=== PATIENT | male | born 1955 | race African-American/Black ===

== ENCOUNTER 2018-02-17 10:19 | Inpatient (IN) | payer OTHER ==
--- OUTSIDE RECORDS SUMMARY | 2018-02-17 10:23 | XMS REPORT ---
:1955 Author Organization [facility] Address Unavailable , Allergies, Adverse Reactions, Alerts Allergy Name Reaction Description Start Date Severity Status Provider No Known Allergies Julieta Hamilton Conditions or Problems Problem Name Problem Onset Status Entry Provider Comment Standard Annotate Code Date Date Description Diabetes 250.00 Active [place] Diabetes mellitus mellitus, type 12/02 12/02 Benjamin PÉREZ without mention II of complication, type II or unspecified type, not stated as uncontrolled Encounter for Active [place] [place] screening for 12/02 12/02 Benjamin PÉREZ eye and ear disorders HIV infection 042 Active [place] Human 12/02 12/02 Benjamin PÉREZ immunodeficiency virus [HIV] disease Hyperopia - OU 367.0 Active Mo Hypermetropia 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 OD Hypertension 401.9 Active [place] Unspecified 12/02 12/02 Benjamin PÉREZ essential hypertension Hypertensive 362.11 Active [place] Hypertensive retinopathy, 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 Presbyopia - 367.4 Active Mo Presbyopia OU 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 OD 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, 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 OD astigmatism bilateral Medication List Medication Instructions Start Stop Generic NDC Status Provider Patient Date Date Name Instruction AMLODIPINE AMLODIPINE 64004668262 Active Mo Active BESYLATE 10 MG BESYLATE Dicks OD ORAL TABLET CALCIUM ACETATE CALCIUM ACETATE 95618955211 Active Mo Active (PHOS BINDER) (PHOS BINDER) Dicks OD 667 MG ORAL CAPSULE CRESTOR 5 MG ROSUVASTATIN 43400612202 Active Mo Active ORAL TABLET CALCIUM Dicks OD EPIVIR SOLUTION LAMIVUDINE SOLN 73769624588 Active Mo Active Dicks OD ISENTRESS RALTEGRAVIR 10409707918 Active Mo Active TABLET POTASSIUM TABS Dicks OD KALETRA TABLET LOPINAVIR-RITONAVI 24728738136 Active Mo Active R TABS Dicks OD LAMIVUDINE LAMIVUDINE TABS 99720992346 Active Mo Active TABLET Dicks OD PROAIR HFA ALBUTEROL SULFATE 84041270036 Active Mo Active AEROSOL AERS Dicks OD SOLUTION PEDRO-EAMON RX B-COMPLEX W/ C & 01177989091 Active Mo Active TABLET FOLIC ACID TABS Dicks OD VITAMIN D2 ERGOCALCIFEROL 79751592677 Active Mo Active TABLET TABS Dicks OD Diagnostic Results Date Name Value Unit Range Description Append: Eye Exam - Hematology T-helper cells (CD4) count 602 uL Append: Eye Exam - Serology HIV-1RNA, serum, by PCR, quantitative 20 {Copies}/mL Procedures Code Procedure Name Date Entry Date Standard Description [id number] Est Patient Comprehensive Opt - 66003 15:29:32 CDT CPT-35367 New Patient Intermediate Opt - 73455 14:28:41 CDT
--- OUTSIDE RECORDS SUMMARY | 2018-02-17 10:23 | XMS REPORT ---
:1955 [facility] Address [address] [place] [address] Care Team Providers Name Role Phone UNKNOWN, REFFERING Primary Care Provider Unavailable MAYLIN HOLLOWAY Unavailable Unavailable NEEL MONROY Unavailable Unavailable SHILA JAFFE MD, M.DDafne Unavailable Unavailable Problems This patient has no known problems. Allergies, Adverse Reactions, Alerts This patient has no known allergies or adverse reactions. Medications This patient has no known medications. Encounters Start End Encounter Admission Attending Care Care Encounter Date/Time Date/Time Type Type Clinicians Facility Department ID 2017-11-18 2017-11-20 Inpatient [facility] [id number] 13:43:00 13:54:00 MAYLIN 2017-11-07 2017-11-07 Emergency E [facility] [id number] 20:22:00 20:22:00 2017-10-06 2017-10-06 Emergency E [facility] [id number] 14:25:00 14:25:00 NEEL Results Test Description Test Time Test Comments Text Results Atomic Results Result Comments CD4/CD8 Ratio Profile 2017-11-27 08:04:00 Test Item Value Reference Range Comments Absolute CD 4 [place] (test cdvu=243728) 188 /uL 359-1519 % CD 4 Pos. Lymph. (test kwpi=894908) 37.6 % 30.8-58.5 Abs. CD 8 Suppressor (test sgrs=815509) 183 /uL 109-897 % CD 8 Pos. Lymph. (test vxqv=596102) 36.6 % 12.0-35.5 CD4/CD8 Ratio (test shrk=195751) 1.03 0.92-3.72 WBC (test kvux=614178) 5.0 x10E3/uL 3.4-10.8 RBC (test krfw=091192) 3.00 x10E6/uL 4.14-5.80 Hemoglobin (test aywm=615130) 9.6 g/dL 13.0-17.7 Hematocrit (test gkfp=164355) 27.6 % 37.5-51.0 MCV (test uqxq=461776) 92 fL 79-97 MCH (test bwpp=026548) 32.0 pg 26.6-33.0 MCHC (test uwal=397517) 34.8 g/dL 31.5-35.7 RDW (test bkhw=708582) 15.5 % 12.3-15.4 Platelets (test qcoo=285508) 113 x10E3/uL 150-379 Neutrophils (test grkq=632087) 84 % Not Estab. Lymphs (test zqep=005314) 9 % Not Estab. Monocytes (test gtcu=871920) 6 % Not Estab. Eos (test hxnh=105414) 1 % Not Estab. Basos (test evps=352171) 0 % Not Estab. Neutrophils (Absolute) (test viee=582747) 4.2 x10E3/uL 1.4-7.0 Lymphs (Absolute) (test ykiu=650347) 0.5 x10E3/uL 0.7-3.1 Monocytes(Absolute) (test auuk=267516) 0.3 x10E3/uL 0.1-0.9 Eos (Absolute) (test isac=791064) 0.0 x10E3/uL 0.0-0.4 Baso (Absolute) (test wcxi=589143) 0.0 x10E3/uL 0.0-0.2 Immature Granulocytes (test cjsv=597307) 0 % Not Estab. Immature Grans (Abs) (test dgxz=514482) 0.0 x10E3/uL 0.0-0.1 Culture, Blood [id number] 08:42:00Specimen: BloodCollected: 11/19/2017 00 :21 Status: Final Last Updated: 11/24/2017 08:42 Culture Result (Final) ( Final) No Growth After 5 DaysCulture, Blood [id number] 08:42: 00Specimen: BloodCollected: 11/18/2017 20:30 Status: Final Last Updated: 08:42 Culture Result (Final) (Final) No Growth After 5 DaysPOC Glucose, [id number] 11:51:00 Test Item Value Reference Range Comments POC Glucose (test 148 mg/dL 70-115 Notify RN or MDIf you consider code=POCGLUC) your patient critically ill, the Madeline Accu-Chek InformII metershould not be used for Glucose determinations.Draw a venous Glucose and send to the Main Lab for Analysis. CK [id number] 07:42:00 Test Item Value Reference Range Comments CK (test code=CK) na U/L 39-308 CKMB (test code=CKMB) 4.0 ng/mL 0.0-4.9 CKMB% (test code=CKMBP) 0.0 % 0.0-3.4 Mef-[id number] 07:39:00 Test Item Value Reference Range Comments NT ProBnp (test code=PBNP) >48845 pg/mL 0-124 Troponin [id number] 07:18:00 Test Item Value Reference Range Comments Troponin T (test code=MADHAV) 0.103 ng/mL 0.000-0.090 Lactate [id number] 07:18:00 Test Item Value Reference Range Comments LDH (test code=LDH) 271 U/L 135-225 POC Glucose, [id number] 06:50:00 Test Item Value Reference Range Comments POC Glucose (test 154 mg/dL 70-115 Notify RN or MDIf you consider code=POCGLUC) your patient critically ill, the Madeline Accu-Chek InformII metershould not be used for Glucose determinations.Draw a venous Glucose and send to the Main Lab for Analysis. CK [id number] 01:08:00 Test Item Value Reference Range Comments CK (test code=CK) na U/L 39-308 CKMB (test code=CKMB) 3.6 ng/mL 0.0-4.9 CKMB% (test code=CKMBP) 0.0 % 0.0-3.4 Troponin [id number] 01:08:00 Test Item Value Reference Range Comments Troponin T (test code=MADHAV) 0.106 ng/mL 0.000-0.090 XR CHEST 1 [id number] 21:02:01CLINICAL INFORMATION: Vascular congestion.Dictation Location: R 16Comparison: 11/18/2017 showed perihilar and lower lobe opacities. Technique: Portable AP 1951 hoursFINDINGS: Monitoring electrodes overlie the chest wall. Cardiomegaly withincreasing central vascular interstitial prominence with bibasilaropacities and effusions. No interval bone changes.IMPRESSION: Changes could indicate worsening cardiac decompensation orfluid overload.POC Glucose, [id number] 20:15:00 Test Item Value Reference Range Comments POC Glucose (test 139 mg/dL 70-115 If you consider your patient code=POCGLUC) critically ill, the Madeline Accu-Chek InformII metershould not be used for Glucose determinations.Draw a venous Glucose and send to the Main Lab for Analysis. POC Glucose, [id number] 16:52:00 Test Item Value Reference Range Comments POC Glucose (test 123 mg/dL 70-115 If you consider your patient code=POCGLUC) critically ill, the Madeline Accu-Chek InformII metershould not be used for Glucose determinations.Draw a venous Glucose and send to the Main Lab for Analysis. POC Glucose, [id number] 12:04:00 Test Item Value Reference Range Comments POC Glucose (test 140 mg/dL 70-115 If you consider your patient code=POCGLUC) critically ill, the Madeline Accu-Chek InformII metershould not be used for Glucose determinations.Draw a venous Glucose and send to the Main Lab for Analysis. POC Glucose, [id number] 08:01:00 Test Item Value Reference Range Comments POC Glucose (test 126 mg/dL 70-115 If you consider your patient code=POCGLUC) critically ill, the Madeline Accu-Chek InformII metershould not be used for Glucose determinations.Draw a venous Glucose and send to the Main Lab for Analysis. CK [id number] 06:03:00 Test Item Value Reference Range Comments CK (test code=CK) na U/L 39-308 CKMB (test code=CKMB) 2.8 ng/mL 0.0-4.9 CKMB% (test code=CKMBP) 0.0 % 0.0-3.4 Basic Metabolic [id number] 05:51:00 Test Item Value Reference Range Comments Sodium (test code=NA) 140 mmol/L 135-145 Potassium (test code=K) 4.0 mmol/L 3.5-5.1 Chloride (test code=CL) 97 mmol/L 98-105 Carbon Dioxide (test 32 mmol/L 22-29 code=CO2) Glucose (test code=GLU) 115 mg/dL 70-115 Blood Urea Nitrogen (test 29 mg/dL 6-20 code=BUN) Creatinine (test 5.5 mg/dL 0.7-1.2 code=CREAT) Calcium (test code=CA) 9.1 mg/dL 8.3-10.5 BUN/Creatinine Ratio 5.3 (test code=BCRATIO) Anion Gap (test 11 mmol/L 7-16 code=AGAP) Estimated GFR (test 14 mL/min/1.73m2 eGFR (estimated Glomerular code=GFR) Filtration Rate) is an estimated value,calculated from the patient's serum creatinine using the MDRD equation.It is NOT the patient's actual GFR. The eGFR provides a more clinicallyuseful measure of kidney disease than serum creatinine alone.This calculation takes sex and race into account, if the informationis provided. If the race is not provided, and the patient isAfrican-Ethiopian, multiply by 1.212. If sex is not provided, and thepatient is female, multiply by 0.742. Results for patients <18 years ofage have not been validated by the MDRD study and should be interpretedwith caution.eGFR Result Interpretation:eGFR > or=60 is in the Normal RangeeGFR < 60 may mean kidney diseaseeGFR < 15 may mean kidney failureRanges recommended by the National Kidney Foundation,http://nkdep.nih .gov Magnesium, [id number] 05:51:00 Test Item Value Reference Range Comments Magnesium (test code=MG) 1.9 mg/dL 1.7-2.5 [id number] 05:51:00 Test Item Value Reference Range Comments Phosphorus (test code=PO4) 3.8 mg/dL 2.70-4.50 Oad-[id number] 05:51:00 Test Item Value Reference Range Comments NT ProBnp (test code=PBNP) >41135 pg/mL 0-124 Troponin [id number] 05:51:00 Test Item Value Reference Range Comments Troponin T (test code=MADHAV) 0.126 ng/mL 0.000-0.090 CBC with [id number] 05:34:00 Test Item Value Reference Range Comments WBC (test code=WBC) 5.9 K/cumm 4.4-10.5 RBC (test code=RBC) 3.01 M/cumm 4.10-5.70 Hemoglobin (test code=HGB) 9.4 gm/dL 13.4-17.4 Hematocrit (test code=HCT) 28.8 % 38.7-52.0 MCV (test code=MCV) 95.7 fL 80-100 MCH (test code=MCH) 31.3 pg 27.0-32.5 MCHC (test code=MCHC) 32.7 g/dL 32.0-37.5 RDW (test code=RDW) 15.6 % 11.5-14.5 Platelet Count (test code=PLTCT) 111 K/cumm 140-440 MPV (test code=MPV) 7.1 fL Diff Method (test code=DIFFM) Auto Neutrophil (test code=NEUT) 82.1 % 36-70 Lymphocyte (test code=LYMPH) 6.2 % 12-44 Monocyte (test code=MONO) 9.3 % 0-11 Eosinophil (test code=EOS) 2.1 % 0-7 Basophil (test code=BASO) 0.3 % 0-2 Neutro Abs (test code=ANEUT) 4.8 K/cumm 1.6-7.4 Lymph Abs (test code=ALYMPH) 0.4 K/cumm 0.5-4.6 [place] Abs (test code=AMONO) 0.6 K/cumm 0.0-1.2 Eos Abs (test code=AEOS) 0.13 K/cumm 0.00-0.74 Baso Abs (test code=ABASO) 0.0 K/cumm 0.00-0.21 CK [id number] 18:39:00 Test Item Value Reference Range Comments CK (test code=CK) HIDE U/L 39-308 CKMB (test code=CKMB) 3.2 ng/mL 0.0-4.9 CKMB% (test code=CKMBP) HIDE % 0.0-3.4 Troponin [id number] 18:39:00 Test Item Value Reference Range Comments Troponin T (test code=MADHAV) 0.126 ng/mL 0.000-0.090 Hep B Surface [id number] 18:39:00 Test Item Value Reference Range Comments Hep Bs Ag (test code=HBSAG) Nonreactive Non-Reactive POC Glucose, [id number] 16:47:00 Test Item Value Reference Range Comments POC Glucose (test 143 mg/dL 70-115 If you consider your patient code=POCGLUC) critically ill, the [facility] Accu-Chek InformII metershould not be used for Glucose determinations.Draw a venous Glucose and send to the Main Lab for Analysis. XR CHEST 1 [id number] 08:18:18EXAM: Portable AP chest x-rayLOCATION: R16 INDICATION: CoughCOMPARISON: 11/07/2017FINDINGS:The cardiacsilhouette is stable enlargement. There are increasinginterstitial opacities, most evident in the perihilar regions and lowerlobes. There is blunting of the costophrenic angles bilaterally. Thereis no discernible pneumothorax.IMPRESSION:Increasing perihilar and bilateral lower lobe opacities compared to theprior exam dated 11/07. Findings may represent pulmonary edema orpneumonia in the appropriate clinical setting.Comprehensive Metabolic [id number] 08:05:00 Test Item Value Reference Range Comments Sodium (test code=NA) 141 mmol/L 135-145 Potassium (test code=K) 3.9 mmol/L 3.5-5.1 Chloride (test code=CL) 94 mmol/L 98-105 Carbon Dioxide (test 28 mmol/L 22-29 code=CO2) Glucose (test code=GLU) 123 mg/dL 70-115 Blood Urea Nitrogen (test 50 mg/dL 6-20 code=BUN) Creatinine (test 7.4 mg/dL 0.7-1.2 code=CREAT) Calcium (test code=CA) 9.3 mg/dL 8.3-10.5 Prot Total (test code=TP) 7.9 g/dL 6.4-8.3 Albumin (test code=ALB) 4.3 g/dL 3.5-5.2 A/G Ratio (test 1.2 Ratio code=AGRATIO) Globulin (test code=GLOB) 3.6 2.9-3.1 Bili Total (test 0.7 mg/dL 0.1-0.9 code=TBIL) Alk Phos (test 93 U/L 40-129 code=APHOS) AST (test code=AST) 55 U/L 1-40 ALT (test code=ALT) 38 U/L 1-41 BUN/Creatinine Ratio 6.8 (test code=BCRATIO) Anion Gap (test 19 mmol/L 7-16 code=AGAP) Estimated GFR (test 10 mL/min/1.73m2 eGFR (estimated Glomerular code=GFR) Filtration Rate) is an estimated value,calculated from the patient's serum creatinine using the MDRD equation.It is NOT the patient's actual GFR. The eGFR provides a more clinicallyuseful measure of kidney disease than serum creatinine alone.This calculation takes sex and race into account, if the informationis provided. If the race is not provided, and the patient isAfrican-Ethiopian, multiply by 1.212. If sex is not provided, and thepatient is female, multiply by 0.742. Results for patients <18 years ofage have not been validated by the MDRD study and should be interpretedwith caution.eGFR Result Interpretation:eGFR > or=60 is in the Normal RangeeGFR < 60 may mean kidney diseaseeGFR < 15 may mean kidney failureRanges recommended by the National Kidney Foundation,http://nkdep.nih .gov CK [id number] 08:05:00 Test Item Value Reference Range Comments CK (test code=CK) 149 U/L 39-308 Troponin [id number] 08:02:00 Test Item Value Reference Range Comments Troponin T (test code=MADHAV) 0.114 ng/mL 0.000-0.090 [id number] 08:02:00 Test Item Value Reference Range Comments NT ProBnp (test code=PBNP) >43055 pg/mL 0-124 CBC with [id number] 07:53:00 Test Item Value Reference Range Comments WBC (test code=WBC) 5.1 K/cumm 4.4-10.5 RBC (test code=RBC) 3.22 M/cumm 4.10-5.70 Hemoglobin (test code=HGB) 10.0 gm/dL 13.4-17.4 Hematocrit (test code=HCT) 30.4 % 38.7-52.0 MCV (test code=MCV) 94.4 fL 80-100 MCH (test code=MCH) 30.9 pg 27.0-32.5 MCHC (test code=MCHC) 32.8 g/dL 32.0-37.5 RDW (test code=RDW) 16.1 % 11.5-14.5 Platelet Count (test code=PLTCT) 118 K/cumm 140-440 MPV (test code=MPV) 9.6 fL Diff Method (test code=DIFFM) Auto Neutrophil (test code=NEUT) 73.2 % 36-70 Lymphocyte (test code=LYMPH) 16.7 % 12-44 Monocyte (test code=MONO) 7.2 % 0-11 Eosinophil (test code=EOS) 2.2 % 0-7 Basophil (test code=BASO) 0.6 % 0-2 Neutro Abs (test code=ANEUT) 3.7 K/cumm 1.6-7.4 Lymph Abs (test code=ALYMPH) 0.9 K/cumm 0.5-4.6 [place] Abs (test code=AMONO) 0.4 K/cumm 0.0-1.2 Eos Abs (test code=AEOS) 0.11 K/cumm 0.00-0.74 Baso Abs (test code=ABASO) 0.0 K/cumm 0.00-0.21 XR CHEST 1 [id number] 21:38:09EXAM: CHEST ONE VIEWINDICATION: CoughCOMPARISON: October 06, 2017TECHNIQUE: AP view of the chest.FINDINGS: The cardiomediastinal silhouette is unchanged. Mild congestive changesbilaterally. No pneumothorax or pleural effusion is identified. Theosseous structures are unremarkable.IMPRESSION: Diffuse congestive changes bilaterally.LOCATION: R16US DUPLX EXT VEINS COMPRXavier, [id number] 20:09:34AFTER HOURS SERVICE ON: 10/06/2017 8: 09 PMRIGHT Lower Extremity Venous Duplex Doppler ExaminationLocation Code [id number]: SwellingTechnique: Real-time castillo scale, Doppler spectral analysis and Dopplercolor flow evaluation was performed using a dedicated transducer. Gradedcompression with augmentation were performed. Findings: Lower extremity veins were sampled including the common femoral,femoral, proximal deep femoral, greater saphenous and popliteal veins. No echogenic filling defects are seen to suggest deep venous thrombosis.There is normal response to compression and augmentation. There arenormal venous waveforms. IMPRESSION:No sonographic evidence of DVT in the imaged vessels.AFTER HOURS SERVICE ON: 10/06/2017 8:09 [facility]rem[facility] Venous Duplex Doppler ExaminationLocation Code [id number] : SwellingTechnique: Real-time castillo scale, Doppler spectral analysis and Dopplercolor flow evaluation was performed using a dedicated transducer. Gradedcompression with augmentation were performed. Findings: Lower extremity veins were sampled including the common femoral,femoral, proximal deep femoral, greater saphenous and popliteal veins. No echogenic filling defects are seen to suggest deep venous thrombosis.There is normal response to compression and augmentation. There arenormal venous waveforms. IMPRESSION:No sonographic evidence of DVT in the imaged vessels.Comprehensive Metabolic [id number] 17 :40:00 Test Item Value Reference Range Comments Sodium (test code=NA) 137 mmol/L 135-145 Potassium (test code=K) 3.7 mmol/L 3.5-5.1 Chloride (test code=CL) 92 mmol/L 98-105 Carbon Dioxide (test 33 mmol/L 22-29 code=CO2) Glucose (test code=GLU) 98 mg/dL 70-115 Blood Urea Nitrogen (test 34 mg/dL 6-20 code=BUN) Creatinine (test 6.3 mg/dL 0.7-1.2 code=CREAT) Calcium (test code=CA) 9.6 mg/dL 8.3-10.5 Prot Total (test code=TP) 7.0 g/dL 6.4-8.3 Albumin (test code=ALB) 4.1 g/dL 3.5-5.2 A/G Ratio (test 1.4 Ratio code=AGRATIO) Globulin (test code=GLOB) 2.9 2.9-3.1 Bili Total (test 0.6 mg/dL 0.1-0.9 code=TBIL) Alk Phos (test 77 U/L 40-129 code=APHOS) AST (test code=AST) 47 U/L 1-40 HEMOLYZED ALT (test code=ALT) 35 U/L 1-41 BUN/Creatinine Ratio 5.4 (test code=BCRATIO) Anion Gap (test 12 mmol/L 7-16 code=AGAP) Estimated GFR (test 12 mL/min/1.73m2 eGFR (estimated Glomerular code=GFR) Filtration Rate) is an estimated value,calculated from the patient's serum creatinine using the MDRD equation.It is NOT the patient's actual GFR. The eGFR provides a more clinicallyuseful measure of kidney disease than serum creatinine alone.This calculation takes sex and race into account, if the informationis provided. If the race is not provided, and the patient isAfrican-Ethiopian, multiply by 1.212. If sex is not provided, and thepatient is female, multiply by 0.742. Results for patients <18 years ofage have not been validated by the MDRD study and should be interpretedwith caution.eGFR Result Interpretation:eGFR > or=60 is in the Normal RangeeGFR < 60 may mean kidney diseaseeGFR < 15 may mean kidney failureRanges recommended by the National Kidney Foundation,http://nkdep.nih .gov CBC with [id number] 17:15:00 Test Item Value Reference Range Comments WBC (test code=WBC) 5.8 K/cumm 4.4-10.5 RBC (test code=RBC) 2.93 M/cumm 4.10-5.70 Hemoglobin (test code=HGB) 9.7 gm/dL 13.4-17.4 Hematocrit (test code=HCT) 28.1 % 38.7-52.0 MCV (test code=MCV) 95.8 fL 80-100 MCH (test code=MCH) 32.9 pg 27.0-32.5 MCHC (test code=MCHC) 34.4 g/dL 32.0-37.5 RDW (test code=RDW) 15.1 % 11.5-14.5 Platelet Count (test code=PLTCT) 136 K/cumm 140-440 MPV (test code=MPV) 6.8 fL Diff Method (test code=DIFFM) Auto Neutrophil (test code=NEUT) 65.8 % 36-70 Lymphocyte (test code=LYMPH) 22.0 % 12-44 Monocyte (test code=MONO) 9.6 % 0-11 Eosinophil (test code=EOS) 2.0 % 0-7 Basophil (test code=BASO) 0.5 % 0-2 Neutro Abs (test code=ANEUT) 3.8 K/cumm 1.6-7.4 Lymph Abs (test code=ALYMPH) 1.3 K/cumm 0.5-4.6 Trego Abs (test code=AMONO) 0.6 K/cumm 0.0-1.2 Eos Abs (test code=AEOS) 0.12 K/cumm 0.00-0.74 Baso Abs (test code=ABASO) 0.0 K/cumm 0.00-0.21 XR CHEST 1 [id number] 16:56:42CHEST 1 VIEW: [id number]: coughCOMPARISON: Sep 24, 2017FINDINGS:The heart is enlarged. There is engorgement of the central pulmonaryvasculature. There are patchy bibasilar areas of infiltrate oratelectasis with bilateral effusions. No pneumothorax is present. IMPRESSION: 1. Patchy areas of atelectasis or infiltrate in the lung bases withsmall bilateral effusions and vascular congestion most likely secondaryto CHF.Culture, Blood [id number] 14:58:00Specimen: BloodCollected: 2017 13:05 Status: Final Last Updated: 09/29/2017 14:58 (1) ER Bed 1 Culture Result (Final) (Final) No Growth After 5 DaysCulture, Blood [id number] 14:58:00Specimen: BloodCollected: 09/24/2017 12:50 Status: Final Last Updated: 09/29/2017 14:58 (1) ER Bed 1 Culture Result (Final) (Final) No Growth After 5 DaysPOC Glucose, [id number] 10:54:00 Test Item Value Reference Range Comments POC Glucose (test 168 mg/dL 70-115 If you consider your patient code=POCGLUC) critically ill, the [facility]eline Accu-Chek InformII metershould not be used for Glucose determinations.Draw a venous Glucose and send to the Main Lab for Analysis. POC Glucose, [id number] 07:16:00 Test Item Value Reference Range Comments POC Glucose (test 143 mg/dL 70-115 If you consider your patient code=POCGLUC) critically ill, the Madeline Accu-Chek InformII metershould not be used for Glucose determinations.Draw a venous Glucose and send to the Main Lab for Analysis. CBC with [id number] 07:15:00 Test Item Value Reference Range Comments WBC (test code=WBC) 7.5 K/cumm 4.4-10.5 RBC (test code=RBC) 2.77 M/cumm 4.10-5.70 Hemoglobin (test code=HGB) 8.7 gm/dL 13.4-17.4 Hematocrit (test code=HCT) 24.7 % 38.7-52.0 MCV (test code=MCV) 88.9 fL 80-100 MCH (test code=MCH) 31.3 pg 27.0-32.5 MCHC (test code=MCHC) 35.2 g/dL 32.0-37.5 RDW (test code=RDW) 15.9 % 11.5-14.5 Platelet Count (test code=PLTCT) 157 K/cumm 140-440 MPV (test code=MPV) 9.0 fL Diff Method (test code=DIFFM) Auto Neutrophil (test code=NEUT) 72.8 % 36-70 Lymphocyte (test code=LYMPH) 17.3 % 12-44 Monocyte (test code=MONO) 8.7 % 0-11 Eosinophil (test code=EOS) 0.9 % 0-7 Basophil (test code=BASO) 0.4 % 0-2 Neutro Abs (test code=ANEUT) 5.5 K/cumm 1.6-7.4 Lymph Abs (test code=ALYMPH) 1.3 K/cumm 0.5-4.6 Trego Abs (test code=AMONO) 0.7 K/cumm 0.0-1.2 Eos Abs (test code=AEOS) 0.07 K/cumm 0.00-0.74 Baso Abs (test code=ABASO) 0.0 K/cumm 0.00-0.21 Magnesium, [id number] 07:03:00 Test Item Value Reference Range Comments Magnesium (test code=MG) 2.0 mg/dL 1.7-2.5 Basic Metabolic [id number] 07:03:00 Test Item Value Reference Range Comments Sodium (test code=NA) 137 mmol/L 135-145 Potassium (test code=K) 3.7 mmol/L 3.5-5.1 Chloride (test code=CL) 95 mmol/L 98-105 Carbon Dioxide (test 30 mmol/L 22-29 code=CO2) Glucose (test code=GLU) 155 mg/dL 70-115 Blood Urea Nitrogen (test 20 mg/dL 6-20 code=BUN) Creatinine (test 5.7 mg/dL 0.7-1.2 code=CREAT) Calcium (test code=CA) 9.0 mg/dL 8.3-10.5 BUN/Creatinine Ratio 3.5 (test code=BCRATIO) Anion Gap (test 12 mmol/L 7-16 code=AGAP) Estimated GFR (test 13 mL/min/1.73m2 eGFR (estimated Glomerular code=GFR) Filtration Rate) is an estimated value,calculated from the patient's serum creatinine using the MDRD equation.It is NOT the patient's actual GFR. The eGFR provides a more clinicallyuseful measure of kidney disease than serum creatinine alone.This calculation takes sex and race into account, if the informationis provided. If the race is not provided, and the patient isAfrican-Ethiopian, multiply by 1.212. If sex is not provided, and thepatient is female, multiply by 0.742. Results for patients <18 years ofage have not been validated by the MDRD study and should be interpretedwith caution.eGFR Result Interpretation:eGFR > or=60 is in the Normal RangeeGFR < 60 may mean kidney diseaseeGFR < 15 may mean kidney failureRanges recommended by the National Kidney Foundation,http://nkdep.nih .gov POC Glucose, [id number] 21:40:00 Test Item Value Reference Range Comments POC Glucose (test 129 mg/dL 70-115 If you consider your patient code=POCGLUC) critically ill, the [facility] Accu-Chek InformII metershould not be used for Glucose determinations.Draw a venous Glucose and send to the Main Lab for Analysis. Hep B Surface [id number] 18:36:00 Test Item Value Reference Range Comments Hep Bs Ag (test code=HBSAG) Nonreactive Non-Reactive POC Glucose, [id number] 10:51:00 Test Item Value Reference Range Comments POC Glucose (test 216 mg/dL 70-115 If you consider your patient code=POCGLUC) critically ill, the Madeline Accu-Chek InformII metershould not be used for Glucose determinations.Draw a venous Glucose and send to the Main Lab for Analysis. POC Glucose, [id number] 07:57:00 Test Item Value Reference Range Comments POC Glucose (test 164 mg/dL 70-115 If you consider your patient code=POCGLUC) critically ill, the Madeline Accu-Chek InformII metershould not be used for Glucose determinations.Draw a venous Glucose and send to the Main Lab for Analysis. POC Glucose, [id number] 19:47:00 Test Item Value Reference Range Comments POC Glucose (test 140 mg/dL 70-115 Notify RN or MDIf you consider code=POCGLUC) your patient critically ill, the Madeline Accu-Chek InformII metershould not be used for Glucose determinations.Draw a venous Glucose and send to the Main Lab for Analysis. Troponin [id number] 19:36:00 Test Item Value Reference Range Comments Troponin T (test code=MADHAV) 0.121 ng/mL 0.000-0.090 CK [id number] 19:25:00 Test Item Value Reference Range Comments CK (test code=CK) 160 U/L 39-308 The value HIDE originally released by [employer] on 09/25/2017 19:12 waschanged to 160 by [employer] on 09/25/2017 19:24 CKMB (test code=CKMB) 3.0 ng/mL 0.0-4.9 CKMB% (test code=CKMBP) 1.9 % 0.0-3.4 The value HIDE originally released by [employer] on 09/25/2017 19:12 waschanged to 1.9 by [facility] on 09/25/2017 19:24 POC Glucose, [id number] 16:42:00 Test Item Value Reference Range Comments POC Glucose (test 123 mg/dL 70-115 If you consider your patient code=POCGLUC) critically ill, the [facility] Accu-Chek InformII metershould not be used for Glucose determinations.Draw a venous Glucose and send to the Main Lab for Analysis. POC Glucose, [id number] 12:09:00 Test Item Value Reference Range Comments POC Glucose (test 141 mg/dL 70-115 If you consider your patient code=POCGLUC) critically ill, the [facility] Accu-Chek InformII metershould not be used for Glucose determinations.Draw a venous Glucose and send to the Main Lab for Analysis. Hep B Surface [id number] 07:59:00 Test Item Value Reference Range Comments Hep Bs Ag (test code=HBSAG) Nonreactive Non-Reactive CK [id number] 07:43:00 Test Item Value Reference Range Comments CK (test code=CK) n/a U/L 39-308 CKMB (test code=CKMB) 2.4 ng/mL 0.0-4.9 CKMB% (test code=CKMBP) 0.0 % 0.0-3.4 Troponin [id number] 07:38:00 Test Item Value Reference Range Comments Troponin T (test code=MADHAV) 0.134 ng/mL 0.000-0.090 Thyroid Stimulating Hormone (TSH)2017-09-25 07:38:00 Test Item Value Reference Range Comments TSH (test code=TSH) 1.10 mIU/mL 0.270-4.200 [id number] 07:38:00 Test Item Value Reference Range Comments Phosphorus (test code=PO4) 3.4 mg/dL 2.70-4.50 Comprehensive Metabolic [id number] 07:38:00 Test Item Value Reference Range Comments Sodium (test code=NA) 136 mmol/L 135-145 Potassium (test code=K) 3.2 mmol/L 3.5-5.1 Chloride (test code=CL) 91 mmol/L 98-105 Carbon Dioxide (test 32 mmol/L 22-29 code=CO2) Glucose (test code=GLU) 103 mg/dL 70-115 Blood Urea Nitrogen (test 20 mg/dL 6-20 code=BUN) Creatinine (test 6.3 mg/dL 0.7-1.2 code=CREAT) Calcium (test code=CA) 8.9 mg/dL 8.3-10.5 Prot Total (test code=TP) 6.8 g/dL 6.4-8.3 Albumin (test code=ALB) 3.9 g/dL 3.5-5.2 A/G Ratio (test 1.3 Ratio code=AGRATIO) Globulin (test code=GLOB) 2.9 2.9-3.1 Bili Total (test 0.9 mg/dL 0.1-0.9 code=TBIL) Alk Phos (test 59 U/L 40-129 code=APHOS) AST (test code=AST) 48 U/L 1-40 ALT (test code=ALT) 41 U/L 1-41 BUN/Creatinine Ratio 3.2 (test code=BCRATIO) Anion Gap (test 13 mmol/L 7-16 code=AGAP) Estimated GFR (test 12 mL/min/1.73m2 eGFR (estimated Glomerular code=GFR) Filtration Rate) is an estimated value,calculated from the patient's serum creatinine using the MDRD equation.It is NOT the patient's actual GFR. The eGFR provides a more clinicallyuseful measure of kidney disease than serum creatinine alone.This calculation takes sex and race into account, if the informationis provided. If the race is not provided, and the patient isAfrican-Ethiopian, multiply by 1.212. If sex is not provided, and thepatient is female, multiply by 0.742. Results for patients <18 years ofage have not been validated by the MDRD study and should be interpretedwith caution.eGFR Result Interpretation:eGFR > or=60 is in the Normal RangeeGFR < 60 may mean kidney diseaseeGFR < 15 may mean kidney failureRanges recommended by the National Kidney Foundation,http://nkdep.nih .gov Magnesium, [id number] 07:38:00 Test Item Value Reference Range Comments Magnesium (test code=MG) 2.0 mg/dL 1.7-2.5 CK [id number] 07:31:00 Test Item Value Reference Range Comments CK (test code=CK) 159 U/L 39-308 Lipid [id number] 07:31:00 Test Item Value Reference Range Comments Cholesterol (test 118 mg/dL 0-200 code=CHOL) Triglycerides (test 170 mg/dL 9-200 code=TRIG) HDL (test code=HDL) 49 mg/dL 40-60 Chol/HDL (test 2.4 Ratio 0.0-5.0 code=CHOLPHDL) LDL, Calculated (test 35 0-130 (NOTE)RISK OF HEART code=LDLC) DISEASEPublished by Ethiopian Heart AssociationAnalyte Optimal Boderline Increased RiskCHOL <200 200-239 >240TRIG <150 150-199 >200HDL Male: >60 <40HDL Female: >60 <50LDL <100 130-159 >160LDL NEAR OPTIMAL IS 100-129 VLDL (test code=VLDL) 34 mg/dL 5-40 LDL/HDL (test code=LDLPHDL) 1 Glycosylated [id number] 07:24:00 Test Item Value Reference Range Comments HBA1c (test code=HBA1C) 5.0 % 4.8-5.9 CBC with [id number] 07:20:00 Test Item Value Reference Range Comments WBC (test code=WBC) 6.5 K/cumm 4.4-10.5 RBC (test code=RBC) 2.80 M/cumm 4.10-5.70 Hemoglobin (test code=HGB) 8.8 gm/dL 13.4-17.4 Hematocrit (test code=HCT) 24.2 % 38.7-52.0 MCV (test code=MCV) 86.5 fL 80-100 MCH (test code=MCH) 31.5 pg 27.0-32.5 MCHC (test code=MCHC) 36.4 g/dL 32.0-37.5 RDW (test code=RDW) 15.6 % 11.5-14.5 Platelet Count (test code=PLTCT) 145 K/cumm 140-440 MPV (test code=MPV) 8.7 fL Diff Method (test code=DIFFM) Auto Neutrophil (test code=NEUT) 78.8 % 36-70 Lymphocyte (test code=LYMPH) 11.6 % 12-44 Monocyte (test code=MONO) 7.6 % 0-11 Eosinophil (test code=EOS) 1.6 % 0-7 Basophil (test code=BASO) 0.4 % 0-2 Neutro Abs (test code=ANEUT) 5.1 K/cumm 1.6-7.4 Lymph Abs (test code=ALYMPH) 0.8 K/cumm 0.5-4.6 Trego Abs (test code=AMONO) 0.5 K/cumm 0.0-1.2 Eos Abs (test code=AEOS) 0.10 K/cumm 0.00-0.74 Baso Abs (test code=ABASO) 0.0 K/cumm 0.00-0.21 POC Glucose, [id number] 07:03:00 Test Item Value Reference Range Comments POC Glucose (test 147 mg/dL 70-115 If you consider your patient code=POCGLUC) critically ill, the [facility] Accu-Chek InformII metershould not be used for Glucose determinations.Draw a venous Glucose and send to the Main Lab for Analysis. POC Glucose, [id number] 22:05:00 Test Item Value Reference Range Comments POC Glucose (test 134 mg/dL 70-115 If you consider your patient code=POCGLUC) critically ill, the [facility] Accu-Chek InformII metershould not be used for Glucose determinations.Draw a venous Glucose and send to the Main Lab for Analysis. Blood Gas+Lytes+Glu+Ca+Hgb+Hct+[id number] 18:31:00 Test Item Value Reference Range Comments pH, Blood Gas (test code=BGPH) 7.513 pH Units 7.35-7.45 pCO2 (test code=PCO2) 45.3 mm Hg 35-45 pO2 (test code=PO2) 59.8 mm Hg 80-100 Bicarbonate (test code=HCO3) 36.4 mmol/L 22.0-26.0 Base Excess (test code=BE) 12.1 mmol/L O2 Saturation (test code=O2SAT) 93.5 % 80.0-100.0 Sodium, Blood Gas (test code=BGNA) 138 mmol/L 135-145 Potassium, Blood Gas (test 3.2 mmol/L 3.5-4.5 code=BGK) Chloride, Blood Gas (test 92 mmol/L 98-105 code=BGCL) Calcium, Ionized, Blood Gas (test 1.11 mmol/L 1.00-1.50 code=BGCAI) Glucose, Blood Gas (test 91 mg/dL 75-115 code=BGGLU) tHB (test code=RTHB) 9.2 gm/dL 12.2-17.4 Hematocrit, Blood Gas (test 28.2 % 34.0-52.0 code=BGHCT) O2Hb (test code=RO2HB) 91 80-100 Carboxyhemoglobin (test 1.8 % 0.0-20.0 code=CARHGB) Methemoglobin (test code=METHGB) 1.2 % 0.0-20.0 FLOW (LPM) (test code=FLOW) 2 L/min Patient Temperature (test 37.0 Degrees Celcius code=PTTEMP) Comment (test code=COMMENT) [email or web address] Puncture Site (test code=PUNSITE) Radial. R Drawing Tech ID (test medel fi code=DRAWTECH) iPAP (test code=IPAP) 0 cmH2O Respiratory Rate (test code=RESP 0 RATE) Lactic Acid, Blood Gas (test 0.4 mmol/L code=BGLA) CT CHEST W/O [id number] 16:48:03CT CHEST W/O CONTRASTLOCATION CODE: R16 HISTORY: r/o PCP pneumoniaCOMPARISON: Chest radiograph 09/24/2017TECHNIQUE: CT of the chest was performed with intravenous contrast.One or more of the following dose reduction techniques were used:Automated exposure control, adjustment of the mA and/or kV according topatient size, and/or utilization of iterative reconstruction technique.DISCUSSION:Lungs and airways: The central airways are clear. Moderate bilateral pleural effusions, right slightly greater than left,are associated with bilateral lower lobe dependent consolidation.There is mild interstitial prominence in the upper lungs.Otherwise , no pneumothorax or suspicious pulmonary nodule is seen.Heart and mediastinum: The heart is mildly enlargedNo pericardial effusion is seen.Calcific coronary arteryatherosclerosis is seen. A few mildly prominent bilateral axillary, prevascular, and paratracheallymph nodes are present.Upper abdomen: The partially visualized kidneys appear atrophic. Bones/soft tissues: There are mild degenerative changes throughout thespine. IMPRESSION: 1. Moderate bilateral pleural effusions, right slightly greater thanleft, with bilateral lower lobe dependent consolidation.2. Nonspecific mild interstitial prominence in the upper lungs may bedue to interstitial pulmonary edema.3. Mild cardiomegaly.4. Nonspecific mildly prominent bilateral axillary, prevascular, andparatracheal lymph nodes.Influenza B [id number] 14:36:00Specimen: NasalCollected: 09/24/2017 14:04 Status: Final Last Updated: 09/24/2017 14: 36 (1) ER Bed 1 Influenza B Ag (Final) (Final) Negative for Flu B protein antigen FLU COMMENT 1(Final) (Final) A negative test result does not exclude infection with influenza Aor B. Flu A or B antigen in the sample may be below the detection limitof the test. Culture of negative samples is recommended.Influenza A [id number] 14:34:00Specimen: NasalCollected: 09/24/2017 14:04 Status: Final Last Updated: 09/24/2017 14:34 (1) ER Bed 1 Influenza A Ag (Final) (Final) Negative for Flu A protein antigen FLU COMMENT 1(Final) (Final) A negative test result does not exclude infection with influenza Aor B. Flu A or B antigen in the sample may be below the detection limitof the test. Culture of negative samples is recommended.Comprehensive Metabolic [id number] 13:54:00 Test Item Value Reference Range Comments Sodium (test code=NA) 132 mmol/L 135-145 Potassium (test code=K) 3.7 mmol/L 3.5-5.1 Hemolyzed Chloride (test code=CL) 89 mmol/L 98-105 Carbon Dioxide (test 32 mmol/L 22-29 code=CO2) Glucose (test code=GLU) 136 mg/dL 70-115 Blood Urea Nitrogen (test 12 mg/dL 6-20 code=BUN) Creatinine (test 4.8 mg/dL 0.7-1.2 code=CREAT) Calcium (test code=CA) 9.0 mg/dL 8.3-10.5 Prot Total (test code=TP) 7.4 g/dL 6.4-8.3 Albumin (test code=ALB) 4.2 g/dL 3.5-5.2 A/G Ratio (test 1.3 Ratio code=AGRATIO) Globulin (test code=GLOB) 3.2 2.9-3.1 Bili Total (test 0.8 mg/dL 0.1-0.9 code=TBIL) Alk Phos (test 56 U/L 40-129 code=APHOS) AST (test code=AST) 72 U/L 1-40 Hemolyzed ALT (test code=ALT) 49 U/L 1-41 BUN/Creatinine Ratio 2.5 (test code=BCRATIO) Anion Gap (test 11 mmol/L 7-16 code=AGAP) Estimated GFR (test 16 mL/min/1.73m2 eGFR (estimated Glomerular code=GFR) Filtration Rate) is an estimated value,calculated from the patient's serum creatinine using the MDRD equation.It is NOT the patient's actual GFR. The eGFR provides a more clinicallyuseful measure of kidney disease than serum creatinine alone.This calculation takes sex and race into account, if the informationis provided. If the race is not provided, and the patient isAfrican-Ethiopian, multiply by 1.212. If sex is not provided, and thepatient is female, multiply by 0.742. Results for patients <18 years ofage have not been validated by the MDRD study and should be interpretedwith caution.eGFR Result Interpretation:eGFR > or=60 is in the Normal RangeeGFR < 60 may mean kidney diseaseeGFR < 15 may mean kidney failureRanges recommended by the National Kidney Foundation,http://nkdep.nih .gov Troponin [id number] 13:54:00 Test Item Value Reference Range Comments Troponin T (test code=MADHAV) 0.124 ng/mL 0.000-0.090 [id number] 13:54:00 Test Item Value Reference Range Comments NT ProBnp (test code=PBNP) >32918 pg/mL 0-124 CK [id number] 13:54:00 Test Item Value Reference Range Comments CK (test code=CK) 222 U/L 39-308 CKMB (test code=CKMB) 3.1 ng/mL 0.0-4.9 CKMB% (test code=CKMBP) 1.4 % 0.0-3.4 CK [id number] 13:54:00 Test Item Value Reference Range Comments CK (test code=CK) 222 U/L 39-308 Partial Thromboplastin [id number] 13:43:00 Test Item Value Reference Range Comments aPTT (test code=PTT) 35.70 seconds 24.39-37.25 Prothrombin [id number] 13:43:00 Test Item Value Reference Range Comments PT (test code=PT) 11.30 seconds 9.78-13.35 INR (test code=INR) 0.99 Ratio 0.6-1.2 Lactic Acid [id number] 13:41:00 Test Item Value Reference Range Comments Lactic Acid, Bld (test code=LAC) 1.3 mmol/L 0.5-1.9 CBC with [id number] 13:32:00 Test Item Value Reference Range Comments WBC (test code=WBC) 5.3 K/cumm 4.4-10.5 RBC (test code=RBC) 2.81 M/cumm 4.10-5.70 Hemoglobin (test code=HGB) 9.1 gm/dL 13.4-17.4 Hematocrit (test code=HCT) 26.3 % 38.7-52.0 MCV (test code=MCV) 93.7 fL 80-100 MCH (test code=MCH) 32.4 pg 27.0-32.5 MCHC (test code=MCHC) 34.5 g/dL 32.0-37.5 RDW (test code=RDW) 15.1 % 11.5-14.5 Platelet Count (test code=PLTCT) 166 K/cumm 140-440 MPV (test code=MPV) 6.1 fL Diff Method (test code=DIFFM) Auto Neutrophil (test code=NEUT) 60.1 % 36-70 Lymphocyte (test code=LYMPH) 23.2 % 12-44 Monocyte (test code=MONO) 11.8 % 0-11 Eosinophil (test code=EOS) 4.4 % 0-7 Basophil (test code=BASO) 0.6 % 0-2 Neutro Abs (test code=ANEUT) 3.2 K/cumm 1.6-7.4 Lymph Abs (test code=ALYMPH) 1.2 K/cumm 0.5-4.6 Trego Abs (test code=AMONO) 0.6 K/cumm 0.0-1.2 Eos Abs (test code=AEOS) 0.23 K/cumm 0.00-0.74 Baso Abs (test code=ABASO) 0.0 K/cumm 0.00-0.21 XR CHEST 1 [id number] 12:50:14XR CHEST 1 VIEWLOCATION: [id number]: None.INDICATION: CoughDISCUSSION:A single portable chest radiograph was submitted for interpretation.Lines/tubes: None.There is central pulmonary vascular congestion with bibasilar opacity,right greater than left.Both costophrenic angles are blunted, right greater than left.The cardiac silhouette is enlarged. There are no definite acute osseous abnormalities.IMPRESSION:1. Central pulmonary vascular congestion with bibasilar opacity, rightgreater than left.2. Suspected small bilateral pleural effusions, right greater thanleft.3. Enlarged cardiac silhouette.
--- NOTE | 2018-02-17 11:51 | RAD REPORT ---
EXAM DESCRIPTION: RAD - Chest Single View - 02/17/2018 11:45 am CLINICAL HISTORY: Cough, shortness of breath, patient provided history of heart surgery and may not otherwise specified. , history of hepatitis, cirrhosis and dialysis COMPARISON: Portable exam September 2017 TECHNIQUE: AP portable chest image was obtained 1117 hours . FINDINGS: Lung volumes are low. Bilateral pleural effusions are present. No pneumothorax is present. Infiltrates and/ or atelectasis could be present and not a lung base, obscured by the fluid. Heart s ize is upper normal for portable imaging. Vascular engorgement is present. No pneumothorax. No acute aortic findings suspected. IMPRESSION: CHF/volume overload pattern with bilateral pleural effusions. Findings are accentuated b y the shallow inspiration.
[2018-02-17 12:08] LABS: Absolute Lymphocytes (CBC) 1.5 K/uL (0.7-4.9); Absolute Neutrophil 4.7 K/uL (1.8-8.0); Basophils % 0.8 % (0-1.3); Eosinophils % 0.3 % (0-4.4); Hematocrit 27.1 % (39.6-49.0); Lymphocytes % 20.6 % (15.3-44.8); MCV 95.1 fL (80-100); MPV 6.8 fL (7.6-11.3); Monocytes % 13.6 % (3.3-12.3); RBC Red Blood Cell Count 2.85 M/uL (4.33-5.43)
[2018-02-17 12:14] LABS: Protime INR 1.2
--- NOTE | 2018-02-17 12:15 | EKG ---
Test Date: 2018-02-17 Test Time: 10:27:54 Stores Clerk: NAOMI MEASUREMENT RESULTS: Intervals: Rate: 81 WI: 166 QRSD: 72 QT: 388 QTc: 450 [place]: P: 65 WI: 166 QRS: 46 T: 117 INTERPRETIVE STATEMENTS: Sinus rhythm with occasional premature ventricular complexes Nonspecific T wave abnormality Abnormal ECG Compared to ECG 05/02/2017 00:57:03 Ventricular premature complex(es) now present T-wave abnormality now present Electronically Signed On 02-17-18 12:15:06 CDT by Brandt Dawn
[2018-02-17 12:25] LABS: Potassium 5.1 mEq/L (3.6-5.0)
--- NOTE | 2018-02-17 12:30 | EDPHYS ---
Physician Documentation [facility] Name: Salvatore Goldman Age: 62 yrs Sex: Male : 1955 Arrival Date: 02/17/2018 Time: 10:21 Bed 8 Private MD: Boston Le HPI: 02/17 12:22 This 62 yrs old Black Male presents to ER via Wheelchair with complaints of Testicular beny Swelling. 12:22 The patient presents with scrotal pain, of both sides, swelling. beny Historical: - Allergies: 10:29 codeine sulfate; jl7 - PMHx: 10:27 Cirrhosis; Dialysis; Hepatitis; HIV; Hyperlipidemia; Karposi Sarcoma (left leg); kidney iw failure; - PSHx: 10:27 Dialysis Fistula (left Arm); Heart Surgery; iw - Immunization history:: Adult Immunizations. - Social history:: Smoking status: unknown. - Ebola Screening: : No symptoms or risks identified at this time. ROS: 12:22 Constitutional: Negative for fever, chills, and weight loss, Eyes: Negative for injury, beny pain, redness, and discharge, ENT: Negative for injury, pain, and discharge, Neck: Negative for injury, pain, and swelling, Cardiovascular: Negative for chest pain, palpitations, and edema, : Negative for injury, bleeding, discharge, and swelling, Skin: Negative for injury, rash, and discoloration, Neuro: Negative for headache, weakness, numbness, tingling, and seizure, Psych: Negative for depression, anxiety, suicide ideation, homicidal ideation, and hallucinations, Allergy/Immunology: Negative for hives, rash, and allergies, Endocrine: Negative for neck swelling, polydipsia, polyuria, polyphagia, and marked weight changes, Hematologic/Lymphatic: Negative for swollen nodes, abnormal bleeding, and unusual bruising. 12:22 Respiratory: Positive for cough, orthopnea, shortness of breath. 12:22 Abdomen/GI: Positive for abdominal pain, of the right lower quadrant and left lower quadrant. 12:22 : Positive for burning with urination, penile pain, testicular pain of the groin. 12:22 MS/extremity: Positive for swelling, tenderness, of the right leg and left leg. Exam: 12:22 Constitutional: This is a well developed, well nourished patient who is awake, alert, beny and in no acute distress. Head/Face: Normocephalic, atraumatic. Eyes: Pupils equal round and reactive to light, extra-ocular motions intact. Lids and lashes normal. Conjunctiva and sclera are non-icteric and not injected. Cornea within normal limits. Periorbital areas with no swelling, redness, or edema. ENT: Nares patent. No nasal discharge, no septal abnormalities noted. Tympanic membranes are normal and external auditory canals are clear. Oropharynx with no redness, swelling, or masses, exudates, or evidence of obstruction, uvula midline. Mucous membranes moist. Neck: Trachea midline, no thyromegaly or masses palpated, and no cervical lymphadenopathy. Supple, full range of motion without nuchal rigidity, or vertebral point tenderness. No Meningismus. Chest/axilla: Normal chest wall appearance and motion. Nontender with no deformity. No lesions are appreciated. Cardiovascular: Regular rate and rhythm with a normal S1 and S2. No gallops, murmurs, or rubs. Normal PMI, no JVD. No pulse deficits. Back: No spinal tenderness. No costovertebral tenderness. Full range of motion. Skin: Warm, dry with normal turgor. Normal color with no rashes, no lesions, and no evidence of cellulitis. Neuro: Awake and alert, GCS 15, oriented to person, place, time, and situation. Cranial nerves II-XII grossly intact. Motor strength 5/5 in all extremities. Sensory grossly intact. Cerebellar exam normal. Normal gait. Psych: Awake, alert, with orientation to person, place and time. Behavior, mood, and affect are within normal limits. 12:22 Respiratory: mild respiratory distress is noted, Respirations: normal, no acute changes, Breath sounds: rales, that are moderate, are located in both bases, decreased breath sounds, rhonchi, that are mild, that are moderate, are scattered, stridor, is not appreciated, Respiratory rate: 22 Vital Signs: 10:25 BP 155 / 81; Pulse 80; Resp 22 S; Pulse Ox 98% on R/A; iw 10:42 Temp 97.8(O); jl7 10:50 BP 139 / 87; Pulse 81; Resp 16 S; Pulse Ox 97% on R/A; Pain 0/10; jl7 12:03 BP 129 / 80; Pulse 79; Resp 16; Pulse Ox 96% ; 7 12:30 BP 138 / 86; Pulse 82; Resp 20; Pulse Ox 96% ; jl7 13:03 BP 158 / 95; Pulse 81; Resp 20; Pulse Ox 94% ; 7 13:19 Weight 63.5 kg (R); jl7 14:00 BP 148 / 88; Pulse 85; Resp 21; Pulse Ox 98% ; 7 14:30 BP 150 / 86; Pulse 84; Resp 20; Pulse Ox 98% on R/A; jl7 15:00 BP 148 / 78; Pulse 86; Resp 16; Pulse Ox 98% ; 7 MDM: 10:29 Patient medically screened. [facility] 12:25 Data reviewed: vital signs, nurses notes, EMS record, lab test result(s), EKG, beny radiologic studies. 02/17 10:40 Order name: Basic Metabolic Panel; Complete Time: 12:56 [facility] 02/17 10:40 Order name: BNP; Complete Time: 13:57 [facility] 02/17 10:40 Order name: CBC with Diff; Complete Time: 12:25 [facility] 02/17 10:40 Order name: Ckmb; Complete Time: 12:56 [facility] 02/17 10:40 Order name: CPK; Complete Time: 12:56 [facility] 02/17 10:40 Order name: LFT's; Complete Time: 12:56 [facility] 02/17 10:40 Order name: Magnesium; Complete Time: 12:56 [facility] 02/17 10:40 Order name: PT-INR; Complete Time: 12:56 [facility] 02/17 10:40 Order name: Ptt, Activated; Complete Time: 12:56 [facility] 02/17 10:40 Order name: Troponin (emerg Dept Use Only); Complete Time: 12:56 [facility] 02/17 10:40 Order name: Blood Culture Adult (2) [facility] 02/17 10:40 Order name: Urine Culture [facility] 02/17 10:40 Order name: Type And Screen; Complete Time: 13:57 [facility] 02/17 10:40 Order name: Lipase; Complete Time: 12:56 [facility] 02/17 10:40 Order name: XRAY Chest (1 view); Complete Time: 12:25 [facility] 02/17 10:40 Order name: EKG; Complete Time: 10:40 [facility] 02/17 10:40 Order name: Cardiac monitoring; Complete Time: 10:42 [facility] 02/17 10:40 Order name: EKG - Nurse/Tech; Complete Time: 10:42 [facility] 02/17 10:40 Order name: IV Saline Lock; Complete Time: 12:05 [facility] 02/17 10:40 Order name: Labs collected and sent; Complete Time: 12:05 [facility] 02/17 10:40 Order name: O2 Per Protocol; Complete Time: 10:42 [facility] 02/17 10:40 Order name: O2 Sat Monitoring; Complete Time: 10:42 [facility] 02/17 10:40 Order name: US Scrotum Testicles; Complete Time: 12:56 [facility] 02/17 12:18 Order name: US Extremity Venous W Compression [place]; Complete Time: 13:57 [facility] 02/17 12:43 Order name: CONS Physician Consult [facility] 02/17 13:19 Order name: Diet Renal; Complete Time: 13:19 bd Administered Medications: 13:17 Drug: Kayexalate 15 grams Route: PO; jl7 13:17 Drug: Lasix 80 mg Route: IVP; Site: right forearm; jl7 Disposition: 02/17/18 12:29 Hospitalization ordered by Nelida Nicole for Inpatient Admission. Preliminary diagnosis are Unspecified combined systolic (congestive) and diastolic (congestive) heart failure, Unspecified cirrhosis of liver, Anemia, unspecified, Human immunodeficiency virus [HIV] disease, Edema, unspecified, End stage renal disease, Pleural effusion in conditions classified elsewhere. - Bed requested for Telemetry/MedSurg (Inpatient). - Status is Inpatient Admission. jl7 - Condition is Stable. - Problem is new. - Symptoms have improved. UTI on Admission? No Signatures: Dispatcher [employer] EDMN Lena Campbell Corey, MD MD cha Williams, Irene, RN RN iw Jase Hughes RN RN jl7 Corrections: (The following items were deleted from the chart) 10:28 10:27 PMHx: Kaosi Sarcoma (Left Leg); iw 14:06 12:29 Hospitalization Ordered by Nelida Nicole MD for Inpatient Admission. Preliminary [facility] diagnosis is Unspecified combined systolic (congestive) and diastolic (congestive) heart failure; Unspecified cirrhosis of liver; Anemia, unspecified; Human immunodeficiency virus [HIV] disease; Edema, unspecified; End stage renal disease. Bed requested for Telemetry/MedSurg (Inpatient). Status is Inpatient Admission. Condition is Stable. Problem is new. Symptoms have improved. UTI on Admission? No. beny 14:53 14:06 02/17/2018 12:29 Hospitalization Ordered by Nelida Nicole MD for Inpatient bd Admission. Preliminary diagnosis is Unspecified combined systolic (congestive) and diastolic (congestive) heart failure; Unspecified cirrhosis of liver; Anemia, unspecified; Human immunodeficiency virus [HIV] disease; Edema, unspecified; End stage renal disease; Pleural effusion in conditions classified elsewhere. Bed requested for Telemetry/MedSurg (Inpatient). Status is Inpatient Admission. Condition is Stable. Problem is new. Symptoms have improved. UTI on Admission? No. beny 15:55 14:53 02/17/2018 12:29 Hospitalization Ordered by Nelida Nicole MD for Inpatient jl7 Admission. Preliminary diagnosis is Unspecified combined systolic (congestive) and diastolic (congestive) heart failure; Unspecified cirrhosis of liver; Anemia, unspecified; Human immunodeficiency virus [HIV] disease; Edema, unspecified; End stage renal disease; Pleural effusion in conditions classified elsewhere. Bed requested for Telemetry/MedSurg (Inpatient). Status is Inpatient Admission. Condition is Stable. Problem is new. Symptoms have improved. UTI on Admission? No. bd
--- NOTE | 2018-02-17 12:30 | ER ---
Nurse's Notes [facility] Name: Salvatore Goldman Age: 62 yrs Sex: Male : 1955 Arrival Date: 02/17/2018 Time: 10:21 Bed 8 Private MD: Diagnosis: Unspecified combined systolic (congestive) and diastolic (congestive) heart failure;Unspecified cirrhosis of liver;Anemia, unspecified;Human immunodeficiency virus [HIV] disease;Edema, unspecified;End stage renal disease;Pleural effusion in conditions classified elsewhere Presentation: 02/17 10:23 Presenting complaint: Patient states: had recent heart surgery in December, had Trujillo in iw place for a month, pt states trujillo was taken out a couple week ago and has not been able urinate, also has had swelling to scrotum and penis since Saturday, pt is here to be seen for scrotal swelling. Transition of care: patient was not received from another setting of care. Onset of symptoms was February 15, 2018. Risk Assessment: Do you want to hurt yourself or someone else? Patient reports no desire to harm self or others. Initial Sepsis Screen: Does the patient meet any 2 criteria? No. Patient's initial sepsis screen is negative. Does the patient have a suspected source of infection? No. Patient's initial sepsis screen is negative. Care prior to arrival: None. 10:23 Method Of Arrival: Wheelchair iw 10:23 Acuity: NARDA 3 iw Historical: - Allergies: 10:29 codeine sulfate; jl7 - PMHx: 10:27 Cirrhosis; Dialysis; Hepatitis; HIV; Hyperlipidemia; Karposi Sarcoma (left leg); kidney iw failure; - PSHx: 10:27 Dialysis Fistula (left Arm); Heart Surgery; iw - Immunization history:: Adult Immunizations. - Social history:: Smoking status: unknown. - Ebola Screening: : No symptoms or risks identified at this time. Screenin:50 Abuse screen: Denies threats or abuse. Denies injuries from another. Nutritional jl7 screening: No deficits noted. Tuberculosis screening: No symptoms or risk factors identified. Fall Risk IV access (20 points). Total Humphrey Fall Scale indicates No Risk (0-24 pts). Assessment: 10:40 General: Appears in no apparent distress. uncomfortable, Behavior is calm, cooperative, jl7 appropriate for age. Pain: Denies pain. Neuro: Level of Consciousness is awake, alert, obeys commands, Oriented to person, place, time, situation. Cardiovascular: Heart tones present Patient's skin is warm and dry. Respiratory: Airway is patent Respiratory effort is even, unlabored, Respiratory pattern is regular, symmetrical, Breath sounds are clear. GI: No signs and/or symptoms were reported involving the gastrointestinal system. : Swelling noted on scrotum Reports inability to void, since Saturday. Pt reports he does make urine but just a few drops and he had dialysis on Saturday. EENT: No signs and/or symptoms were reported regarding the EENT system. Derm: Skin is dry, Skin is normal, Skin temperature is warm. Musculoskeletal: No signs and/or symptoms reported regarding the musculoskeletal system. 12:06 Reassessment: No changes from previously documented assessment. Patient and/or family jl7 updated on plan of care and expected duration. Pain level reassessed. Patient is alert, oriented x 3, equal unlabored respirations, skin warm/dry/pink. 13:00 Reassessment: Patient and/or family updated on plan of care and expected duration. Pain jl7 level reassessed. Patient is alert, oriented x 3, equal unlabored respirations, skin warm/dry/pink. Patient denies pain at this time. 14:00 Reassessment: No changes from previously documented assessment. Patient and/or family jl7 updated on plan of care and expected duration. Pain level reassessed. Patient is alert, oriented x 3, equal unlabored respirations, skin warm/dry/pink. 15:00 Reassessment: Patient and/or family updated on plan of care and expected duration. Pain jl7 level reassessed. Patient is alert, oriented x 3, equal unlabored respirations, skin warm/dry/pink. Vital Signs: 10:25 BP 155 / 81; Pulse 80; Resp 22 S; Pulse Ox 98% on R/A; iw 10:42 Temp 97.8(O); jl7 10:50 BP 139 / 87; Pulse 81; Resp 16 S; Pulse Ox 97% on R/A; Pain 0/10; jl7 12:03 BP 129 / 80; Pulse 79; Resp 16; Pulse Ox 96% ; jl7 12:30 BP 138 / 86; Pulse 82; Resp 20; Pulse Ox 96% ; jl7 13:03 BP 158 / 95; Pulse 81; Resp 20; Pulse Ox 94% ; jl7 13:19 Weight 63.5 kg (R); jl7 14:00 BP 148 / 88; Pulse 85; Resp 21; Pulse Ox 98% ; jl7 14:30 BP 150 / 86; Pulse 84; Resp 20; Pulse Ox 98% on R/A; jl7 15:00 BP 148 / 78; Pulse 86; Resp 16; Pulse Ox 98% ; jl7 ED Course: 10:21 Patient arrived in ED. iw 10:25 Triage completed. iw 10:28 Jase Hughes, RN is Primary Nurse. jl7 10:28 Boston Johnson MD is Attending Physician. beny 10:32 EKG done, by agricultural engineering technologist. reviewed by Boston Johnson MD. at1 10:50 Patient has correct armband on for positive identification. Placed in gown. Bed in low jl7 position. Call light in reach. Side rails up X 1. digital research analyst on. Pulse ox on. NIBP on. Warm blanket given. 10:51 Radiology exam delayed due to IV insertion attempt and/or patient not having hr appropriate IV at this time. 11:15 Note: pt still having iv put in ------hr. hr 11:35 Inserted saline lock: 22 gauge in right forearm, using aseptic technique. Blood jl7 collected. 11:35 Initial lab(s) drawn, by la, sent to lab. First set of blood cultures drawn by la. jl7 11:45 XRAY Chest (1 view) In Process Unspecified. EDMS 11:50 Second set of blood cultures drawn by la. jl7 12:07 Arm band placed on right wrist. jl7 12:15 US Scrotum Testicles In Process Unspecified. EDMS 12:15 Ultrasound completed. Patient tolerated well. aa4 12:27 Nelida Nicole MD is Hospitalizing Provider. beny 13:03 US Extremity Venous W Compression [place] In Process Unspecified. EDMS 13:12 Ultrasound completed. Patient tolerated well. lc3 15:30 No provider procedures requiring assistance completed. Patient admitted, IV remains in jl7 place. intact, No redness/swelling at site. Administered Medications: 13:17 Drug: Kayexalate 15 grams Route: PO; jl7 13:17 Drug: Lasix 80 mg Route: IVP; Site: right forearm; jl7 Outcome: 12:29 Decision to Hospitalize by Provider. beny 15:29 Admitted to Med/surg accompanied by tech, via wheelchair, room 205, with chart, Report jl7 called to LAURYN Chavez 15:29 Condition: stable 15:29 Discharge instructions given to patient, Instructed on discharge instructions, Demonstrated understanding of instructions. 15:55 Patient left the ED. jl7 Signatures: Dispatcher [employer] EDFL Boston Johnson MD MD cha Rod, Haley hr Williams, Irene, LAURYN RN Michelle Shepard aa4 Michelle funes, clinical laboratory science professor EKG Tat1 Ton Amin Jahala, RN RN jl7 Corrections: (The following items were deleted from the chart) 10:28 10:27 PMHx: Kaosi Sarcoma (Left Leg); connor 13:24 13:03 BP 158 / 95; Pulse 81bpm; Resp 94bpm; Pulse Ox 20%; jl7 jl7
[2018-02-17 12:31] LABS: Albumin 2.8 g/dL (3.2-5.5); Bilirubin Direct 0.5 mg/dL (0-0.2); Bilirubin Total 1.6 mg/dL (0.3-1.2)
[2018-02-17 12:33] LABS: CKMB Creatine Kinase MB 4.3 ng/ml (0.3-4.0)
--- NOTE | 2018-02-17 12:41 | RAD REPORT ---
EXAM DESCRIPTION: US - Scrotum Testicles - 02/17/2018 12:18 pm CLINICAL HISTORY: Scrotal pain and swelling COMPARISON: None. FINDINGS: No mass identified within either testicle. Doppler evaluation shows a normal blood flow pa ttern. Right testicle is 4.1 x 2.5 x 2.3 cm. Left testicle is 3.9 x 2.2 x 2.1 cm. No epididymis abnor mality. Small bilateral varicoceles are present. There is a minimal hydrocele on the right. Pronounced scrotal wall thickening is present. No abscess or drainable fluid collection within the sc rotal tissue. IMPRESSION: Marked scrotal wall thickening and edema. No abscess or drainable fluid collection. Small bilateral varicoceles and minimal right hydrocele.
[2018-02-17] MEDS ORDERED: SOD POLYSTYREN SUL 15 GM/60 ML UCUP ONE (13:02)
[2018-02-17] MEDS ORDERED: FUROSEMIDE 40 MG/4 ML VIAL ONE (13:02)
--- NOTE | 2018-02-17 13:29 | RAD REPORT ---
EXAM DESCRIPTION: VAS - Extrem Venous W Compress [place] - 02/17/2018 1:12 pm CLINICAL HISTORY: Pain;Swelling Bilateral leg edema and swelling. COMPARISON: Extremity Venous Uni Ltd dated 03/15/2016 TECHNIQUE: Real-time sonographic interrogation of the left and right lower extremity deep venous sys tems was performed. FINDINGS: Normal compressibility, flow augmentation, phasic flow and spontaneous flow is identified in both the left and right lower extremity deep venous systems. Fluid collections are present in both groins without color flow. Most likely these are related to previous hematoma. IMPRESSION: No sonographic evidence of left or right lower extremity deep venous thrombosis.
[2018-02-17] MEDS ORDERED: ACETAMINOPHEN 500 MG TAB PO PRN (15:47)
--- NOTE | 2018-02-17 16:44 | P.HP ---
Certification for Inpatient Patient admitted to: Inpatient With expected LOS: >2 Midnights Patient will require the following post-hospital care: None Practitioner: I am a practitioner with admitting privileges, knowledge of patient current condition, hospital course, and medical plan of care. Services: Services provided to patient in accordance with Admission requirements found in Title 42 Section 412.3 of the Code of Federal Regulations Patient History Date of Service: 02/17/18 Primary Care Provider: In [place], Formula Maker in [place], Nephrology Anabel Reason for admission: Scrotal Swelling. 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 Patient stated that he has chronic lower leg edema which is usually 1 + however recently he has started noticing that he also had some scrotal swelling which is got progressively worse and thus he decided to come to the ER. Patient stated that recently he was seen at the [facility] [place] in January for valve replacement surgery and was discharged to the rehab center and was recently discharged home from there about 2-3 days ago. After being home patient started noticing that he was having worsening of his scrotum swelling and thus he decided to come to the ER. Patient last hemodialysis session was on buddhist and has been compliant with hemodialysis along with diet and fluid restrictions at home. Patient denies having any fever chills nausea vomiting or any other complaints at this time. Allergies codeine sulfate Allergy (Uncoded 02/17/18 15:59) Unknown Home Medications: Amlodipine Besylate 10 mg PO DAILY 03/15/16 Calcium Acetate 667 mg PO SEECOM 03/15/16 Cetirizine HCl 10 mg PO DAILY 03/15/16 Ergocalciferol (Vitamin D2) [Vitamin D 50,000 Unit Cap] 1 cap PO Q7D 03/15/16 Folic Acid/Vit Bcomp,C [Daija-Kodak Tablet] 0.8 mg PO DAILY 03/15/16 Lopinavir/Ritonavir [Kaletra 200-50 MG Tablet*] 1 each PO BID 03/15/16 Nateglinide [Starlix*] 30 mg PO SEECOM 03/15/16 Raltegravir Potassium [Isentress] 400 mg PO BID 03/15/16 Rosuvastatin [Crestor*] 5 mg PO BEDTIME 03/15/16 lamiVUDine [Epivir*] 150 mg PO DAILY 03/15/16 Amoxicillin [Amoxil] 500 mg PO DAILY #7 osyr 03/17/16 Metronidazole 500 mg PO BID #14 tablet 03/17/16 - Past Medical/Surgical History Has patient received pneumonia vaccine in the past: Yes Diabetic: Yes -: HIV-AIDS -: Hepatitis C -: DM -: HTN -: Karposi Sarcoma of the LLE -: ESRD -: Cirrhosis -: ESRD on HD -: AV fistula to the LUE -: Valve Replacement Psychosocial/ Personal History: He has been with his current partner for years, 7-children, Disabled. - Family History Father -: Other (see notes) Notes: bilateral amputee, gout Mother -: Heart disease, Hypertension, Stroke - Social History Smoking Status: Never smoker Alcohol use: No CD- Drugs: No Caffeine use: No Place of Residence: Home Review of Systems General: As per HPI Physical Examination - Vital Signs Temperature: 98.3 F Blood Pressure: 134/79 Pulse: 89 Respirations: 18 Pulse Ox (%): 91 - Physical Exam General: Alert, In no apparent distress, Oriented x3 HEENT: Atraumatic Neck: Supple, JVD distended Respiratory: Clear to auscultation bilaterally, Normal air movement Cardiovascular: Regular rate/rhythm, Normal S1 S2, Systolic murmur Gastrointestinal: Normal bowel sounds, Soft and benign, No tenderness, Ascites Musculoskeletal: Swelling (2+ BL LE ) Neurological: Normal speech, Normal strength at 5/5 x4 extr, Normal tone Lymphatics: No axilla or inguinal lymphadenopathy External genitalia: Edema (Scrotal Swelling of 3+ noted. Surgical Scar noted ) - Studies Laboratory Data (last 24 hrs) 02/17/18 11:35: PT 14.2 H, INR 1.20, APTT 30.9 02/17/18 11:35: WBC 7.2, Hgb 9.1 L, Hct 27.1 L, Plt Count 203 02/17/18 11:35: B-Natriuretic Peptide > 45728 H 02/17/18 11:35: Sodium 138, Potassium 5.1 H, BUN 48 H, Creatinine 6.00 H*, Glucose 153 H, Magnesium 2.0, Total Bilirubin 1.6 H, AST 38, ALT 32, Alkaline Phosphatase 137 H, Lipase 99 H Assessment and Plan - Problems (Diagnosis) (1) Volume overload Current Visit: Yes Status: Acute Plan: LE and scrotal Edema. Volume Overload most likely 2.2 to Renal vs cardiac etiology. -BNP> 17515. -Recent H/o Valve replacement in January at [facility] - Records requested -Nephrology consulted. Reccs appreciated -Scheduled for HD today. Usual Schedule TTS -Cardiology consulted. Awaiting Reccs -Echo ordered and pending at this time Qualifiers: Hypervolemia type: other Qualified Code(s): E87.79 - Other fluid overload (2) Diabetes mellitus Onset Date: 03/16/16 Current Visit: No Status: Chronic Qualifiers: Diabetes mellitus type: type 2 Diabetes mellitus senior care insulin use: without senior care use Diabetes mellitus complication status: without complication Qualified Code(s): E11.9 - Type 2 diabetes mellitus without complications (3) ESRD (end stage renal disease) Onset Date: 03/16/16 Current Visit: No Status: Chronic (4) HIV (human immunodeficiency virus infection) Onset Date: 03/16/16 Current Visit: No Status: Chronic (5) HTN (hypertension) Onset Date: 03/16/16 Current Visit: No Status: Chronic Qualifiers: Hypertension type: essential hypertension (6) Hepatitis C Onset Date: 03/16/16 Current Visit: No Status: Chronic Qualifiers: Viral hepatitis chronicity: chronic Hepatic coma status: without hepatic coma Qualified Code(s): B18.2 - Chronic viral hepatitis C Discharge Plan: Home Plan to discharge in: 24 Hours - Advance Directives Does patient have a Living Will: Yes Does patient have a Durable POA for Healthcare: Yes - Code Status/Comfort Care Code Status Assessed: Yes Critical Care: No
[2018-02-17] MEDS ORDERED: NA CHLORIDE 0.9% 1,000 ML IV PRN (16:45)
[2018-02-17] MEDS ORDERED: EPOETIN ALFA 10,000 UNIT/ML VIAL IV SCH (16:45)
[2018-02-17] MEDS ORDERED: MANNITOL 25% 12.5 GM/50 ML VIAL IV PRN (16:45)
--- NOTE | 2018-02-17 16:55 | P.CNS ---
Date of Consult: 02/17/18 Reason for Consult: ESRD Requesting Physician: Nelida Nicole Primary Care Provider: In [place], Toby Maker in [place], Nephrology [facility] Chief Complaint: Scrotal Swelling. 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 Patient stated that he has chronic lower leg edema which is usually 1 + however recently he has started noticing that he also had some scrotal swelling which is got progressively worse and thus he decided to come to the ER. Patient stated that recently he was seen at the [facility] in January for valve replacement surgery and was discharged to the rehab center and was recently discharged home from there about 2-3 days ago. After being home patient started noticing that he was having worsening of his scrotum swelling and thus he decided to come to the ER. Patient last hemodialysis session was on uatsdin and has been compliant with hemodialysis along with diet and fluid restrictions at home. Patient denies having any fever chills nausea vomiting or any other complaints at this time. 12:22 This 62 yrs old Black Male presents to ER via Wheelchair with complaints of Testicular beny Swelling. 12:22 The patient presents with scrotal pain, of both sides, swelling Allergies codeine sulfate Allergy (Uncoded 02/17/18 15:59) Unknown Home medications list reviewed: Yes Home Medications: Calcium Acetate 1 cap PO TID 03/15/16 Lopinavir/Ritonavir [Kaletra 200-50 MG Tablet*] 2 tab PO BID 03/15/16 Raltegravir Potassium [Isentress] 1 tab PO BID 03/15/16 Rosuvastatin [Crestor*] 5 mg PO BEDTIME 03/15/16 Atorvastatin Calcium [Lipitor*] 1 tab PO BEDTIME 02/18/18 Lamivudine [Epivir] 25 mg PO BID 02/18/18 diphenhydrAMINE HCl [Diphenhydramine HCl] 1 cap PO BEDTIME 02/18/18 - Past Medical/Surgical History Diabetic: Yes -: HIV-AIDS -: Hepatitis C -: DM -: HTN -: Karposi Sarcoma of the LLE -: ESRD -: Cirrhosis -: ESRD on HD -: AV fistula to the LUE -: Valve Replacement Psychosocial/ Personal History: He has been with his current partner for years, 7-children, Disabled. - Family History Father Medical History: Other (see notes) Notes: bilateral amputee, gout Mother Medical History: Heart disease, Hypertension, Stroke - Social History Smoking Status: Never smoker Alcohol use: No CD- Drugs: No Caffeine use: No Place of Residence: Home Review of Systems 10-point ROS is otherwise unremarkable General: Weakness, Malaise Respiratory: SOB with Excertion Cardiovascular: Edema Neurological: Weakness Physical Examination Temp Pulse Resp BP Pulse Ox 98.3 F 89 18 134/79 91 02/17/18 16:46 02/17/18 16:46 02/17/18 16:46 02/17/18 16:46 02/17/18 16:46 General: Oriented x3, Cooperative HEENT: Atraumatic, Mucous membr. moist/pink Neck: Supple, JVD distended Respiratory: Diminished Cardiovascular: Regular rate/rhythm, No rubs, Edema Gastrointestinal: Soft and benign, Non-distended, No guarding Musculoskeletal: No clubbing, No warmth Integumentary: No rashes, No cyanosis Neurological: Normal speech Laboratory Data (last 24 hrs) 02/17/18 11:35: PT 14.2 H, INR 1.20, APTT 30.9 02/17/18 11:35: WBC 7.2, Hgb 9.1 L, Hct 27.1 L, Plt Count 203 02/17/18 11:35: B-Natriuretic Peptide > 45910 H 02/17/18 11:35: Sodium 138, Potassium 5.1 H, BUN 48 H, Creatinine 6.00 H*, Glucose 153 H, Magnesium 2.0, Total Bilirubin 1.6 H, AST 38, ALT 32, Alkaline Phosphatase 137 H, Lipase 99 H Imagings Data: EXAM DESCRIPTION: RAD - Chest Single View - 02/17/2018 11:45 am CLINICAL HISTORY: Cough, shortness of breath, patient provided history of heart surgery and may not otherwise specified. , history of hepatitis, cirrhosis and dialysis COMPARISON: Portable exam September 2017 TECHNIQUE: AP portable chest image was obtained 1117 hours . FINDINGS: Lung volumes are low. Bilateral pleural effusions are present. No pneumothorax is present. Infiltrates and/ or atelectasis could be present and not a lung base, obscured by the fluid. Heart size is upper normal for portable imaging. Vascular engorgement is present. No pneumothorax. No acute aortic findings suspected. IMPRESSION: CHF/volume overload pattern with bilateral pleural effusions. Findings are accentuated by the shallow inspiration. Conclusions/Impression: A/ ESRD on HD. DM II with CKD. HTN with CKD. A/C Diastolic CHF. Anemia in CKD. BEBO/ Secondary HyperPTH. HIV. HCV. P/ Continue current POC and Medications. Arrange for acute HD. Aggressive UF. Restart home medications. Give Epo. Low sodium diet. AM labs. Daily weight. No NSAIDs. Thank you kindly for the consultation. Case discussed with Dr. Nicole.
--- NOTE | 2018-02-17 16:58 | ECHO ---
HEIGHT: 5 ft 7 in WEIGHT: 173 lb 0 oz DATE OF STUDY: 02/17/[address]: Nelida Nicole MD 2-DIMENSIONAL: YES M.MODE: YES DOPPLER: YES COLOR FLOW: YES TDS: PORTABLE: DEFINITY: BUBBLE STUDY: DIAGNOSIS: CONGESTIVE HEART FAILURE CARDIAC HISTORY: CATHERIZATION: SURGERY: YES PROSTHETIC VALVE: MVR PACEMAKER: YES MEASUREMENTS (cm) DIASTOLIC (NORMALS) SYSTOLIC (NORMALS) IVSd 1.3 (0.6-1.2) LA Diam 5.0 (1.9-4.0) LVEF 50-55% LVIDd 4.3 (3.5-5.7) LVIDs 3.4 (2.0-3.5) %FS 22% LVPWd 1.5 (0.6-1.2) Ao Diam 2.9 (2.0-3.7) 2 DIMENSIONAL ASSESSMENT: RIGHT ATRIUM: DILATED LEFT ATRIUM: DILATED RIGHT VENTRICLE: PACEMAKER CATHETER LEFT VENTRICLE: LEFT VENTRICULAR HYPERTROPHY TRICUSPID VALVE: NORMAL MITRAL VALVE: MECHANICAL PROSTHETIC VALVE PULMONIC VALVE: NORMAL AORTIC VALVE: MILD SCLEROSIS PERICARDIAL EFFUSION: NONE AORTIC ROOT: NORMAL LEFT VENTRICULAR WALL MOTION: PARADOXICAL SEPTAL MOTION DOPPLER/COLOR FLOW: MILD TRICUSPID REGURGITATION. NO SIGNIFICANT AORTIC STENOSIS OR AORTIC REGURGITATION. NO SIGNIFICANT MITRAL STENOSIS OR MITRAL REGURGITATION. SEVERE PULMONARY HYPERTENSION. ESTIMATED RIGHT VENTRICULAR SYSTOLIC PRESSURE 60-65 mmHg. COMMENTS: NORMAL LEFT VENTRICULAR EJECTION FRACTION WITH PARADOXICAL SEPTAL MOTION. DILATED LEFT AND RIGHT ATRIUM. PROSTHETIC MITRAL VALVE WITH NO MITRAL STENOSIS OR MITRAL REGURGITATION. AORTIC SCLEROSIS WITH NO AORTIC STENOSIS OR AORTIC REGURGITATION. MILD TRICUSPID REGURGITATION. SEVERE PULMONARY HYPERTENSION. MODEATE RIGHT PLEURAL EFFUSION. TECHNOLOGIST: KIRA WILLOUGHBY
[2018-02-17] MEDS ORDERED: ALBUMIN HUMAN 25% 50 ML IV SCH (17:00)
[2018-02-18 00:01] VITALS: O2SAT 96
[2018-02-18] MEDS ORDERED: BENZONATATE 100 MG CAP PO PRN (00:08)
[2018-02-18 05:18] LABS: Albumin 2.5 g/dL (3.2-5.5); Bilirubin Total 1.2 mg/dL (0.3-1.2); Phosphorus 3.1 mg/dL (2.5-4.3); Potassium 4.3 mEq/L (3.6-5.0); Protein, Total 6.7 g/dL (6.0-8.3)
[2018-02-18 06:10] VITALS: BMI 26.5
[2018-02-18 07:38] LABS: Absolute Lymphocytes (CBC) 1.3 K/uL (0.7-4.9); Absolute Monocytes 0.9 K/uL (0.1-1.3); Absolute Neutrophil 4.1 K/uL (1.8-8.0); Basophils % 0.7 % (0-1.3); Eosinophils % 0.6 % (0-4.4); Hematocrit 24.9 % (39.6-49.0); Lymphocytes % 20.5 % (15.3-44.8); MCH 31.9 pg (27.0-35.0); MCV 95.1 fL (80-100); MPV 6.7 fL (7.6-11.3); Monocytes % 14.3 % (3.3-12.3); RBC Red Blood Cell Count 2.62 M/uL (4.33-5.43)
[2018-02-18 12:10] VITALS: BP 143/86; TEMP 97.8
--- NOTE | 2018-02-18 13:53 | P.SSS ---
Patient History Date of Service: 02/18/18 Primary Care Provider: In [place], Clinical Molecular Geneticist in [place], Nephrology [facility] Reason for admission: Scrotal Swelling. 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 Patient stated that he has chronic lower leg edema which is usually 1 + however recently he has started noticing that he also had some scrotal swelling which is got progressively worse and thus he decided to come to the ER. Patient stated that recently he was seen at the [facility] in January for valve replacement surgery and was discharged to the rehab center and was recently discharged home from there about 2-3 days ago. After being home patient started noticing that he was having worsening of his scrotum swelling and thus he decided to come to the ER. Patient last hemodialysis session was on denominational and has been compliant with hemodialysis along with diet and fluid restrictions at home. Patient denies having any fever chills nausea vomiting or any other complaints at this time. Allergies codeine sulfate Allergy (Uncoded 02/17/18 15:59) Unknown Home Medications: Calcium Acetate 1 cap PO TID 03/15/16 Lopinavir/Ritonavir [Kaletra 200-50 MG Tablet*] 2 tab PO BID 03/15/16 Raltegravir Potassium [Isentress] 1 tab PO BID 03/15/16 Rosuvastatin [Crestor*] 5 mg PO BEDTIME 03/15/16 Atorvastatin Calcium [Lipitor*] 1 tab PO BEDTIME 02/18/18 Lamivudine [Epivir] 25 mg PO BID 02/18/18 diphenhydrAMINE HCl [Diphenhydramine HCl] 1 cap PO BEDTIME 02/18/18 - Past Medical/Surgical History Has patient received pneumonia vaccine in the past: Yes Diabetic: Yes -: HIV-AIDS -: Hepatitis C -: DM -: HTN -: Karposi Sarcoma of the LLE -: ESRD -: Cirrhosis -: ESRD on HD -: AV fistula to the LUE -: Valve Replacement Psychosocial/ Personal History: He has been with his current partner for years, 7-children, Disabled. - Family History Father -: Other (see notes) Notes: bilateral amputee, gout Mother -: Heart disease, Hypertension, Stroke - Social History Smoking Status: Never smoker Alcohol use: No CD- Drugs: No Caffeine use: No Place of Residence: Home Review of Systems General: As per HPI Physical Examination - Vital Signs Temperature: 97.8 F Blood Pressure: 143/86 Pulse: 97 Respirations: 16 Pulse Ox (%): 96 - Physical Exam General: Alert, In no apparent distress HEENT: Atraumatic, PERRLA, Mucous membr. moist/pink, EOMI, Sclerae nonicteric Neck: Supple, 2+ carotid pulse no bruit, No LAD, Without JVD or thyroid abnormality Respiratory: Clear to auscultation bilaterally, Normal air movement Cardiovascular: Regular rate/rhythm, Normal S1 S2 Gastrointestinal: Normal bowel sounds, No tenderness Musculoskeletal: No tenderness Integumentary: No rashes Neurological: Normal gait, Normal speech, Normal strength at 5/5 x4 extr, Normal tone, Normal affect Lymphatics: No axilla or inguinal lymphadenopathy - Diagnosis (Problem(s)) (1) Volume overload Onset Date: 02/18/18 Current Visit: Yes Status: Acute Plan: LE and scrotal Edema. Volume Overload most likely 2.2 to Renal vs cardiac etiology. Improved today. -Recent H/o Valve replacement in January at [facility] [place] - Records requested -Nephrology consulted. Reccs appreciated -Scheduled for HD today. DC after that -Cardiology consulted. Reccs Appreciated -Echo ordered and no acute finding. Qualifiers: Hypervolemia type: other Qualified Code(s): E87.79 - Other fluid overload (2) Diabetes mellitus Onset Date: 03/16/16 Current Visit: No Status: Chronic Qualifiers: Diabetes mellitus type: type 2 Diabetes mellitus associate manager affiliate marketing insulin use: without mcc use Diabetes mellitus complication status: without complication Qualified Code(s): E11.9 - Type 2 diabetes mellitus without complications (3) ESRD (end stage renal disease) Onset Date: 03/16/16 Current Visit: No Status: Chronic (4) HIV (human immunodeficiency virus infection) Onset Date: 03/16/16 Current Visit: No Status: Chronic (5) HTN (hypertension) Onset Date: 03/16/16 Current Visit: No Status: Chronic Qualifiers: Hypertension type: essential hypertension (6) Hepatitis C Onset Date: 03/16/16 Current Visit: No Status: Chronic Qualifiers: Viral hepatitis chronicity: chronic Hepatic coma status: without hepatic coma Qualified Code(s): B18.2 - Chronic viral hepatitis C - Disposition Disposition: ROUTINE DISCHARGE Condition: GOOD Diet: Regular Activity: Ad pedro
--- NOTE | 2018-02-18 20:39 | P.PN ---
Date of Service: 02/18/18 Vital Signs Temp Pulse Resp BP Pulse Ox 97.8 F 97 H 16 143/86 H 96 02/18/18 13:53 02/18/18 13:53 02/18/18 13:53 02/18/18 13:53 02/18/18 13:53 Microbiology Results 02/17/18 11:50 Blood - Blood Aerobic Blood Culture - Preliminary No growth in 24 hours. 02/17/18 11:50 Blood - Blood Anaerobic Blood Culture - Preliminary No growth in 24 hours. 02/17/18 11:35 Blood - Blood Aerobic Blood Culture - Preliminary No growth in 24 hours. 02/17/18 11:35 Blood - Blood Anaerobic Blood Culture - Preliminary No growth in 24 hours. Assessment/ Plan: Nephrology. CPS improved without CP. +PATEL +Edema. No acute events overnight. Tolerated HD yesterday. Feeling better. Good appetite. Vitals, medications, blood work and imaging reviewed in the chart. General: Oriented x3, Cooperative HEENT: Atraumatic, Mucous membr. moist/pink Neck: Supple, JVD distended Respiratory: Diminished Cardiovascular: Regular rate/rhythm, No rubs, Edema Gastrointestinal: Soft and benign, Non-distended, No guarding Musculoskeletal: No clubbing, No warmth Integumentary: No rashes, No cyanosis Neurological: Normal speech Laboratory Data (last 24 hrs) 02/17/18 11:35: PT 14.2 H, INR 1.20, APTT 30.9 02/17/18 11:35: WBC 7.2, Hgb 9.1 L, Hct 27.1 L, Plt Count 203 02/17/18 11:35: B-Natriuretic Peptide > 61998 H 02/17/18 11:35: Sodium 138, Potassium 5.1 H, BUN 48 H, Creatinine 6.00 H*, Glucose 153 H, Magnesium 2.0, Total Bilirubin 1.6 H, AST 38, ALT 32, Alkaline Phosphatase 137 H, Lipase 99 H Imagings Data: EXAM DESCRIPTION: RAD - Chest Single View - 02/17/2018 11:45 am CLINICAL HISTORY: Cough, shortness of breath, patient provided history of heart surgery and may not otherwise specified. , history of hepatitis, cirrhosis and dialysis COMPARISON: Portable exam September 2017 TECHNIQUE: AP portable chest image was obtained 1117 hours . FINDINGS: Lung volumes are low. Bilateral pleural effusions are present. No pneumothorax is present. Infiltrates and/ or atelectasis could be present and not a lung base, obscured by the fluid. Heart size is upper normal for portable imaging. Vascular engorgement is present. No pneumothorax. No acute aortic findings suspected. IMPRESSION: CHF/volume overload pattern with bilateral pleural effusions. Findings are accentuated by the shallow inspiration. Conclusions/Impression: A/ ESRD on HD. DM II with CKD. HTN with CKD. A/C Diastolic CHF. Anemia in CKD. BEBO/ Secondary HyperPTH. HIV. HCV. P/ Continue current POC and Medications. Arrange for acute HD again today. Aggressive UF as tolerated. Low sodium diet. AM labs. Daily weight. No NSAIDs.
--- NOTE | 2018-02-20 00:29 | CON ---
Date of Consultation: 02/18/2018 Reason For Consultation: Shortness of breath. History Of Present Illness: Mr. Goldman is a 62-year-old black male, has multiple medical problems inc luding HIV, cirrhosis, Kaposi's sarcoma, diabetes, dyslipidemia, and end-stage renal disease on hemod ialysis, has had a history of mitral valve replacement that is prosthetic many years ago. He has hem odialysis that he does through the left arm. Came in with some shortness of breath and cough. No fe peter. No chills. No PND, orthopnea, pedal edema, palpitations, or syncope. Chest x-ray showed mild congestive heart failure. EKG showed sinus tachycardia. He had venous Doppler, scrotal Doppler whic h were negative. Creatinine is 4.7, hemoglobin 9.1. His BNP was more than 1000. Allergies: CODEINE. Review of Systems: Negative. Social History: Negative. Family History: Noncontributory. Medications: Norvasc, Kaletra, Crestor, and Epivir. Physical Examination: Vital Signs: Stable. He was afebrile. HEENT: Negative. Neck: Supple without any lymphadenopathy, JVD, or thyromegaly. Chest: Reveals some wheezing on expiration. Cardiac: Revealed a regular rhythm and rate with S4 gallops. No murmurs or rubs. Abdomen: Benign. Extremities: Revealed 1+ edema. Genitalia: He had scrotal swelling. Diagnostic Data: As stated above. Impression And Plan: 1.Acute exacerbation of chronic diastolic congestive heart failure. 2.End-stage renal disease, on hemodialysis. 3.Status post mitral valve replacement. Echocardiogram showed normal ejection fraction, normal pros thetic mitral valve, severe pulmonary hypertension with paradoxical septum. 4.End-stage renal disease, on hemodialysis. 5.Cirrhosis. 6.HIV, on treatment. 7.Dyslipidemia. 8.Diabetes mellitus. 9.Status post history of Kaposi's. I think Mr. Goldman obviously needs to be dialyzed as his main problem is fluid retention from his sunil l failure. He will not respond to diuresis with Lasix. He can go home whenever it is okay with Dr. Nicole. His echocardiogram shows a normally functioning mitral valve. He has severe pulmonary hypert ension, which certainly can also explain his shortness of breath. NB/MODL Voice ID: [id number] Report ID: [id number]
== END 2018-02-18 15:10 | disposition home or self-care (01) | DRG 291 ==
LOC: ER 10:19 → ERHOLD 13:22 → 2ND 15:15
PROVIDERS: ADMIT Family Medicine; ATTEND Family Medicine
PROC: 5A1D70Z Performance of Urinary Filtration, Intermittent, Less than 6 Hours Per Day (ICD-10-PCS; principal; 2018-02-17)
DX: I13.2 Hypertensive heart and chronic kidney disease with heart failure and with stage 5 chronic kidney disease, or end stage renal disease (principal); N18.6 End stage renal disease; B20 Human immunodeficiency virus [HIV] disease; I50.33 Acute on chronic diastolic (congestive) heart failure; N25.81 Secondary hyperparathyroidism of renal origin; Z95.2 Presence of prosthetic heart valve; E11.22 Type 2 diabetes mellitus with diabetic chronic kidney disease; E78.5 Hyperlipidemia, unspecified; K74.60 Unspecified cirrhosis of liver; B18.2 Chronic viral hepatitis C; Z99.2 Dependence on renal dialysis; Z88.5 Allergy status to narcotic agent; I27.20 Pulmonary hypertension, unspecified; D63.1 Anemia in chronic kidney disease; N25.0 Renal osteodystrophy; Z85.831 Personal history of malignant neoplasm of soft tissue; N50.89 Other specified disorders of the male genital organs
CPT/HCPCS: 36415; 71045; 76870; 80048; 80053; 80076; 82550; 82553; 82962; 83690; 83735; 83880; 84100; 84484; 85025; 85610; 85730; 86850; 86900; 86901; 87040; 87070; 87205; 90935; 93005; 93306; 93970; 96374; 99285; J2150; Q4081

== ENCOUNTER 2018-02-24 21:48 | Inpatient (IN) | payer OTHER ==
--- OUTSIDE RECORDS SUMMARY | 2018-02-24 21:52 | XMS REPORT ---
:1955 Author Organization [facility] Address Unavailable , Allergies, Adverse [...] 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 OD 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, 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 OD astigmatism bilateral Medication List Medication Instructions Start Stop Generic NDC Status Provider Patient Date Date Name Instruction AMLODIPINE AMLODIPINE 96391940956 Active Mo Active BESYLATE 10 MG BESYLATE Dicks OD ORAL TABLET CALCIUM ACETATE CALCIUM ACETATE 84234052468 Active Mo Active (PHOS BINDER) (PHOS BINDER) Dicks OD 667 MG ORAL CAPSULE CRESTOR 5 MG ROSUVASTATIN 31927870799 Active Mo Active ORAL TABLET CALCIUM Dicks OD EPIVIR SOLUTION LAMIVUDINE SOLN 42059523937 Active Mo Active Dicks OD ISENTRESS RALTEGRAVIR 43454497907 Active Mo Active TABLET POTASSIUM TABS Dicks OD KALETRA TABLET LOPINAVIR-RITONAVI 34337728440 Active Mo Active R TABS Dicks OD LAMIVUDINE LAMIVUDINE TABS 11207182941 Active Mo Active TABLET Dicks OD PROAIR HFA ALBUTEROL SULFATE 94624704969 Active Mo Active AEROSOL AERS Dicks OD SOLUTION PEDRO-EAMON RX B-COMPLEX W/ C & 27243801585 Active Mo Active TABLET FOLIC ACID TABS Dicks OD VITAMIN D2 ERGOCALCIFEROL 86521704880 Active Mo Active TABLET TABS Dicks OD Diagnostic Results Date Name Value Unit Range Description Append: Eye Exam - Hematology T-helper cells (CD4) count 602 uL Append: Eye Exam - Serology HIV-1RNA, serum, by PCR, quantitative 20 {Copies}/mL Procedures Code Procedure Name Date Entry Date Standard Description CPT-19653 Est Patient Comprehensive Opt - 25049 15:29:32 CDT CPT-06418 New Patient Intermediate Opt - 98867 14:28:41 CDT
--- OUTSIDE RECORDS SUMMARY | 2018-02-24 21:52 | XMS REPORT ---
:1955 [facility] [address] [place] [address] Care Team Providers Name Role Phone UNKNOWN, REFFERING Primary Care Provider Unavailable MAYLIN HOLLOWAY S Unavailable Unavailable ELIANA, NEEL Unavailable Unavailable SHILA JAFFE MD, M.DDafne Unavailable Unavailable Problems This patient has no known problems. Allergies, Adverse Reactions, Alerts This patient has no known allergies or adverse reactions. Medications This patient has no known medications. Encounters Start End Encounter Admission Attending Care Care Encounter Date/Time Date/Time Type Type Clinicians Facility Department ID 2017-11-18 2017-11-[id number] 13:43:00 13:54:00 MAYLIN 2017-11-07 2017-11-07 Emergency E [facility] [id number] 20:22:00 20:22:00 2017-10-06 2017-10-06 [facility] [id number] 14:25:00 14:25:00 NEEL Results Test Description Test Time Test Comments Text Results Atomic Results Result Comments CD4/CD8 Ratio Profile 2017-11-27 08:04:00 Test Item Value Reference Range Comments Absolute CD 4 [place] (test ntae=286084) 188 /uL 359-1519 % CD 4 Pos. Lymph. (test kqri=389480) 37.6 % 30.8-58.5 Abs. CD 8 Suppressor (test rpmm=723274) 183 /uL 109-897 % CD 8 Pos. Lymph. (test mfnt=301347) 36.6 % 12.0-35.5 CD4/CD8 Ratio (test gzdl=566392) 1.03 0.92-3.72 WBC (test qigc=868649) 5.0 x10E3/uL 3.4-10.8 RBC (test wxku=048924) 3.00 x10E6/uL 4.14-5.80 Hemoglobin (test ibrp=343005) 9.6 g/dL 13.0-17.7 Hematocrit (test tgwt=249130) 27.6 % 37.5-51.0 MCV (test cvcy=477475) 92 fL 79-97 MCH (test nsvj=822665) 32.0 pg 26.6-33.0 MCHC (test osdt=900030) 34.8 g/dL 31.5-35.7 RDW (test cesv=837770) 15.5 % 12.3-15.4 Platelets (test msiq=337048) 113 x10E3/uL 150-379 Neutrophils (test ykzm=883950) 84 % Not Estab. Lymphs (test nceu=718490) 9 % Not Estab. Monocytes (test gaoq=877871) 6 % Not Estab. Eos (test nwmf=098143) 1 % Not Estab. Basos (test ounr=048682) 0 % Not Estab. Neutrophils (Absolute) (test ptjp=747443) 4.2 x10E3/uL 1.4-7.0 Lymphs (Absolute) (test pzpl=796687) 0.5 x10E3/uL 0.7-3.1 Monocytes(Absolute) (test gcgy=172568) 0.3 x10E3/uL 0.1-0.9 Eos (Absolute) (test kfmj=421485) 0.0 x10E3/uL 0.0-0.4 Baso (Absolute) (test qjpv=686448) 0.0 x10E3/uL 0.0-0.2 Immature Granulocytes (test wjbk=360558) 0 % Not Estab. Immature Grans (Abs) (test ftyx=808688) 0.0 x10E3/uL 0.0-0.1 Culture, Blood [id number] 08:42:00Specimen: BloodCollected: 11/19/2017 00 :21 Status: Final Last Updated: 11/24/2017 08:42 Culture Result (Final) ( Final) No Growth After 5 DaysCulture, Blood [id number] 08:42: 00Specimen: BloodCollected: 11/18/2017 20:30 Status: Final Last Updated: 08:42 Culture Result (Final) (Final) No Growth After 5 DaysPOC Glucose, [id number] 11:51:00 Test Item Value Reference Range Comments POC Glucose (test 148 mg/dL 70-115 Notify RN or MDIf you consider code=POCGLUC) your patient critically ill, the [facility]eline Accu-Chek InformII metershould not be used for Glucose determinations.Draw a venous Glucose and send to the Main Lab for Analysis. CK [id number] 07:42:00 Test Item Value Reference Range Comments CK (test code=CK) na U/L 39-308 CKMB (test code=CKMB) 4.0 ng/mL 0.0-4.9 CKMB% (test code=CKMBP) 0.0 % 0.0-3.4 Wkm-[id number] 07:39:00 Test Item Value Reference Range Comments NT ProBnp (test code=PBNP) >04064 pg/mL 0-124 Troponin [id number] 07:18:00 Test Item Value Reference Range Comments Troponin T (test code=MADHAV) 0.103 ng/mL 0.000-0.090 Lactate [id number] 07:18:00 Test Item Value Reference Range Comments LDH (test code=LDH) 271 U/L 135-225 POC Glucose, [id number] 06:50:00 Test Item Value Reference Range Comments POC Glucose (test 154 mg/dL 70-115 Notify RN or MDIf you consider code=POCGLUC) your patient critically ill, the Madeline Accu-Chek InformII metershould not be used for Glucose determinations.Draw a venous Glucose and send to the Main Lab for Analysis. CK [id number] 01:08:00 Test Item Value Reference Range Comments CK (test code=CK) na U/L 39-308 CKMB (test code=CKMB) 3.6 ng/mL 0.0-4.9 CKMB% (test code=CKMBP) 0.0 % 0.0-3.4 Troponin [id number] 01:08:00 Test Item Value Reference Range Comments Troponin T (test code=MADHAV) 0.106 ng/mL 0.000-0.090 XR CHEST 1 [id number] 21:02:01CLINICAL INFORMATION: Vascular congestion.Dictation Location: R 16Comparison: 11/18/2017 showed perihilar and lower lobe opacities. Technique: Portable AP 1951 hoursFINDINGS: Monitoring electrodes overlie the chest wall. Cardiomegaly withincreasing central vascular interstitial prominence with bibasilaropacities and effusions. No interval bone changes.IMPRESSION: Changes could indicate worsening cardiac decompensation orfluid overload.POC Glucose, [id number] 20:15:00 Test Item Value Reference Range Comments POC Glucose (test 139 mg/dL 70-115 If you consider your patient code=POCGLUC) critically ill, the Madeline Accu-Chek InformII metershould not be used for Glucose determinations.Draw a venous Glucose and send to the Main Lab for Analysis. POC Glucose, [id number] 16:52:00 Test Item Value Reference Range Comments POC Glucose (test 123 mg/dL 70-115 If you consider your patient code=POCGLUC) critically ill, the Madeline Accu-Chek InformII metershould not be used for Glucose determinations.Draw a venous Glucose and send to the Main Lab for Analysis. POC Glucose, [id number] 12:04:00 Test Item Value Reference Range Comments POC Glucose (test 140 mg/dL 70-115 If you consider your patient code=POCGLUC) critically ill, the Madeline Accu-Chek InformII metershould not be used for Glucose determinations.Draw a venous Glucose and send to the Main Lab for Analysis. POC Glucose, [id number] 08:01:00 Test Item Value Reference Range Comments POC Glucose (test 126 mg/dL 70-115 If you consider your patient code=POCGLUC) critically ill, the Madeline Accu-Chek InformII metershould not be used for Glucose determinations.Draw a venous Glucose and send to the Main Lab for Analysis. CK [id number] 06:03:00 Test Item Value Reference Range Comments CK (test code=CK) na U/L 39-308 CKMB (test code=CKMB) 2.8 ng/mL 0.0-4.9 CKMB% (test code=CKMBP) 0.0 % 0.0-3.4 Basic Metabolic [id number] 05:51:00 Test Item Value Reference Range Comments [...] race is not provided, and the patient isAfrican-Algerian, multiply by 1.212. If sex is not provided, and thepatient is female, multiply by 0.742. Results for patients <18 years ofage have not been validated by the MDRD study and should be interpretedwith caution.eGFR Result Interpretation:eGFR > or=60 is in the Normal RangeeGFR < 60 may mean kidney diseaseeGFR < 15 may mean kidney failureRanges recommended by the National Kidney Foundation,http://nkdep.nih .gov Magnesium, [id number] 05:51:00 Test Item Value Reference Range Comments Magnesium (test code=MG) 1.9 mg/dL 1.7-2.5 Nitpeqyogh3000-98-18 05:51:00 Test Item Value Reference Range Comments Phosphorus (test code=PO4) 3.8 mg/dL 2.70-4.50 Sic-[id number] 05:51:00 Test Item Value Reference Range Comments NT ProBnp (test code=PBNP) >51101 pg/mL 0-124 Troponin [id number] 05:51:00 Test Item Value Reference Range Comments Troponin T (test code=MADHAV) 0.126 ng/mL 0.000-0.090 CBC with [id number] 05:34:00 Test Item Value Reference Range Comments [...] Lymph Abs (test code=ALYMPH) 0.4 K/cumm 0.5-4.6 Todd Abs (test code=AMONO) 0.6 K/cumm 0.0-1.2 Eos Abs (test code=AEOS) 0.13 K/cumm 0.00-0.74 Baso Abs (test code=ABASO) 0.0 K/cumm 0.00-0.21 CK [id number] 18:39:00 Test Item Value Reference Range Comments CK (test code=CK) HIDE U/L 39-308 CKMB (test code=CKMB) 3.2 ng/mL 0.0-4.9 CKMB% (test code=CKMBP) HIDE % 0.0-3.4 Troponin [id number] 18:39:00 Test Item Value Reference Range Comments Troponin T (test code=MADHAV) 0.126 ng/mL 0.000-0.090 Hep B Surface [id number] 18:39:00 Test Item Value Reference Range Comments Hep Bs Ag (test code=HBSAG) Nonreactive Non-Reactive POC Glucose, [id number] 16:47:00 Test Item Value Reference Range Comments POC Glucose (test 143 mg/dL 70-115 If you consider your patient code=POCGLUC) critically ill, the [facility]eline Accu-Chek InformII metershould not be used for Glucose determinations.Draw a venous Glucose and send to the Main Lab for Analysis. XR CHEST 1 [id number] 08:18:18EXAM: Portable AP chest x-rayLOCATION: R16 INDICATION: CoughCOMPARISON: 11/07/2017FINDINGS:The cardiacsilhouette is stable enlargement. There are increasinginterstitial opacities, most evident in the perihilar regions and lowerlobes. There is blunting of the costophrenic angles bilaterally. Thereis no discernible pneumothorax.IMPRESSION:Increasing perihilar and bilateral lower lobe opacities compared to theprior exam dated 11/07. Findings may represent pulmonary edema orpneumonia in the appropriate clinical setting.Comprehensive Metabolic [id number] 08:05:00 Test Item Value Reference Range Comments [...] race is not provided, and the patient isAfrican-Algerian, multiply by 1.212. If sex is not provided, and thepatient is female, multiply by 0.742. Results for patients <18 years ofage have not been validated by the MDRD study and should be interpretedwith caution.eGFR Result Interpretation:eGFR > or=60 is in the Normal RangeeGFR < 60 may mean kidney diseaseeGFR < 15 may mean kidney failureRanges recommended by the National Kidney Foundation,http://nkdep.nih .gov CK [id number] 08:05:00 Test Item Value Reference Range Comments CK (test code=CK) 149 U/L 39-308 Troponin [id number] 08:02:00 Test Item Value Reference Range Comments Troponin T (test code=MADHAV) 0.114 ng/mL 0.000-0.090 Zwl-[id number] 08:02:00 Test Item Value Reference Range Comments NT ProBnp (test code=PBNP) >26655 pg/mL 0-124 CBC with [id number] 07:53:00 Test Item Value Reference Range Comments [...] Lymph Abs (test code=ALYMPH) 0.9 K/cumm 0.5-4.6 Todd Abs (test code=AMONO) 0.4 K/cumm 0.0-1.2 Eos Abs (test code=AEOS) 0.11 K/cumm 0.00-0.74 Baso Abs (test code=ABASO) 0.0 K/cumm 0.00-0.21 XR CHEST 1 [id number] 21:38:09EXAM: CHEST ONE VIEWINDICATION: CoughCOMPARISON: October 06, 2017TECHNIQUE: AP view of the chest.FINDINGS: The cardiomediastinal silhouette is unchanged. Mild congestive changesbilaterally. No pneumothorax or pleural effusion is identified. Theosseous structures are unremarkable.IMPRESSION: Diffuse congestive changes bilaterally.LOCATION: R16US DUPLX EXT VEINS COMPRXavier, [id number] 20:09:34AFTER HOURS SERVICE ON: 10/06/2017 8: 09 PMRIGHT Lower Extremity Venous Duplex Doppler ExaminationLocation Code D78Yclxdaj: SwellingTechnique: Real-time castillo scale, Doppler spectral analysis [...] imaged vessels.AFTER HOURS SERVICE ON: 10/06/2017 8:09 [facility] Extremity Venous Duplex Doppler ExaminationLocation Code B08Spbkrmu : SwellingTechnique: Real-time castillo scale, Doppler spectral [...] of DVT in the imaged vessels.Comprehensive Metabolic [id number] 17 :40:00 Test Item Value Reference Range [...] race is not provided, and the patient isAfrican-Algerian, multiply by 1.212. If sex is not [...] the National Kidney Foundation,http://nkdep.nih .gov CBC with [id number] 17:15:00 Test Item Value Reference Range Comments [...] Lymph Abs (test code=ALYMPH) 1.3 K/cumm 0.5-4.6 Todd Abs (test code=AMONO) 0.6 K/cumm 0.0-1.2 Eos Abs (test code=AEOS) 0.12 K/cumm 0.00-0.74 Baso Abs (test code=ABASO) 0.0 K/cumm 0.00-0.21 XR CHEST 1 [id number] 16:56:42CHEST 1 VIEW: [id number]: coughCOMPARISON: Sep 24, 2017FINDINGS:The heart is enlarged. There is engorgement of the central pulmonaryvasculature. There are patchy bibasilar areas of infiltrate oratelectasis with bilateral effusions. No pneumothorax is present. IMPRESSION: 1. Patchy areas of atelectasis or infiltrate in the lung bases withsmall bilateral effusions and vascular congestion most likely secondaryto CHF.Culture, Blood [id number] 14:58:00Specimen: BloodCollected: 2017 13:05 Status: Final Last Updated: 09/29/2017 14:58 (1) ER Bed 1 Culture Result (Final) (Final) No Growth After 5 DaysCulture, Blood [id number] 14:58:00Specimen: BloodCollected: 09/24/2017 12:50 Status: Final Last Updated: 09/29/2017 14:58 (1) ER Bed 1 Culture Result (Final) (Final) No Growth After 5 DaysPOC Glucose, [id number] 10:54:00 Test Item Value Reference Range Comments POC Glucose (test 168 mg/dL 70-115 If you consider your patient code=POCGLUC) critically ill, the [facility] Accu-Chek InformII metershould not be used for Glucose determinations.Draw a venous Glucose and send to the Main Lab for Analysis. POC Glucose, [id number] 07:16:00 Test Item Value Reference Range Comments POC Glucose (test 143 mg/dL 70-115 If you consider your patient code=POCGLUC) critically ill, the [facility]eline Accu-Chek InformII metershould not be used for Glucose determinations.Draw a venous Glucose and send to the Main Lab for Analysis. CBC with Qdiduejkmnff1815-58-38 07:15:00 Test Item Value Reference Range Comments [...] Lymph Abs (test code=ALYMPH) 1.3 K/cumm 0.5-4.6 Todd Abs (test code=AMONO) 0.7 K/cumm 0.0-1.2 Eos Abs (test code=AEOS) 0.07 K/cumm 0.00-0.74 Baso Abs (test code=ABASO) 0.0 K/cumm 0.00-0.21 Magnesium, [id number] 07:03:00 Test Item Value Reference Range Comments Magnesium (test code=MG) 2.0 mg/dL 1.7-2.5 Basic Metabolic [id number] 07:03:00 Test Item Value Reference Range Comments [...] race is not provided, and the patient isAfrican-Algerian, multiply by 1.212. If sex is not [...] the National Kidney Foundation,http://nkdep.nih .gov POC Glucose, [id number] 21:40:00 Test Item Value Reference Range Comments POC Glucose (test 129 mg/dL 70-115 If you consider your patient code=POCGLUC) critically ill, the Madeline Accu-Chek InformII metershould not be used for Glucose determinations.Draw a venous Glucose and send to the Main Lab for Analysis. Hep B Surface [id number] 18:36:00 Test Item Value Reference Range Comments Hep Bs Ag (test code=HBSAG) Nonreactive Non-Reactive POC Glucose, [id number] 10:51:00 Test Item Value Reference Range Comments POC Glucose (test 216 mg/dL 70-115 If you consider your patient code=POCGLUC) critically ill, the Madeline Accu-Chek InformII metershould not be used for Glucose determinations.Draw a venous Glucose and send to the Main Lab for Analysis. POC Glucose, Broje1720-04-11 07:57:00 Test Item Value Reference Range Comments POC Glucose (test 164 mg/dL 70-115 If you consider your patient code=POCGLUC) critically ill, the Madeline Accu-Chek InformII metershould not be used for Glucose determinations.Draw a venous Glucose and send to the Main Lab for Analysis. POC Glucose, [id number] 19:47:00 Test Item Value Reference Range Comments POC Glucose (test 140 mg/dL 70-115 Notify RN or MDIf you consider code=POCGLUC) your patient critically ill, the Madeline Accu-Chek InformII metershould not be used for Glucose determinations.Draw a venous Glucose and send to the Main Lab for Analysis. Troponin [id number] 19:36:00 Test Item Value Reference Range Comments Troponin T (test code=MADHAV) 0.121 ng/mL 0.000-0.090 CK [id number] 19:25:00 Test Item Value Reference Range Comments CK (test code=CK) 160 U/L 39-308 The value HIDE originally released by [employer] on 09/25/2017 19:12 waschanged to 160 by [employer] on 09/25/2017 19:24 CKMB (test code=CKMB) 3.0 ng/mL 0.0-4.9 CKMB% (test code=CKMBP) 1.9 % 0.0-3.4 The value HIDE originally released by [employer] on 09/25/2017 19:12 waschanged to 1.9 by [employer] on 09/25/2017 19:24 POC Glucose, [id number] 16:42:00 Test Item Value Reference Range Comments POC Glucose (test 123 mg/dL 70-115 If you consider your patient code=POCGLUC) critically ill, the Madeline Accu-Chek InformII metershould not be used for Glucose determinations.Draw a venous Glucose and send to the Main Lab for Analysis. POC Glucose, [id number] 12:09:00 Test Item Value Reference Range Comments POC Glucose (test 141 mg/dL 70-115 If you consider your patient code=POCGLUC) critically ill, the Madeline Accu-Chek InformII metershould not be used for Glucose determinations.Draw a venous Glucose and send to the Main Lab for Analysis. Hep B Surface [id number] 07:59:00 Test Item Value Reference Range Comments Hep Bs Ag (test code=HBSAG) Nonreactive Non-Reactive CK [id number] 07:43:00 Test Item Value Reference Range Comments CK (test code=CK) n/a U/L 39-308 CKMB (test code=CKMB) 2.4 ng/mL 0.0-4.9 CKMB% (test code=CKMBP) 0.0 % 0.0-3.4 Troponin [id number] 07:38:00 Test Item Value Reference Range Comments Troponin T (test code=MADHAV) 0.134 ng/mL 0.000-0.090 Thyroid Stimulating Hormone (TSH)2017-09-25 07:38:00 Test Item Value Reference Range Comments TSH (test code=TSH) 1.10 mIU/mL 0.270-4.200 [id number] 07:38:00 Test Item Value Reference Range Comments Phosphorus (test code=PO4) 3.4 mg/dL 2.70-4.50 Comprehensive Metabolic [id number] 07:38:00 Test Item Value Reference Range Comments [...] race is not provided, and the patient isAfrican-Algerian, multiply by 1.212. If sex is not provided, and thepatient is female, multiply by 0.742. Results for patients <18 years ofage have not been validated by the MDRD study and should be interpretedwith caution.eGFR Result Interpretation:eGFR > or=60 is in the Normal RangeeGFR < 60 may mean kidney diseaseeGFR < 15 may mean kidney failureRanges recommended by the National Kidney Foundation,http://nkdep.nih .gov Magnesium, [id number] 07:38:00 Test Item Value Reference Range Comments Magnesium (test code=MG) 2.0 mg/dL 1.7-2.5 CK [id number] 07:31:00 Test Item Value Reference Range Comments CK (test code=CK) 159 U/L 39-308 Lipid [id number] 07:31:00 Test Item Value Reference Range Comments Cholesterol (test 118 mg/dL 0-200 code=CHOL) Triglycerides (test 170 mg/dL 9-200 code=TRIG) HDL (test code=HDL) 49 mg/dL 40-60 Chol/HDL (test 2.4 Ratio 0.0-5.0 code=CHOLPHDL) LDL, Calculated (test 35 0-130 (NOTE)RISK OF HEART code=LDLC) DISEASEPublished by Algerian Heart AssociationAnalyte Optimal Boderline Increased RiskCHOL <200 200-239 >240TRIG <150 150-199 >200HDL Male: >60 <40HDL Female: >60 <50LDL <100 130-159 >160LDL NEAR OPTIMAL IS 100-129 VLDL (test code=VLDL) 34 mg/dL 5-40 LDL/HDL (test code=LDLPHDL) 1 Glycosylated [id number] 07:24:00 Test Item Value Reference Range Comments HBA1c (test code=HBA1C) 5.0 % 4.8-5.9 CBC with [id number] 07:20:00 Test Item Value Reference Range Comments [...] Lymph Abs (test code=ALYMPH) 0.8 K/cumm 0.5-4.6 Todd Abs (test code=AMONO) 0.5 K/cumm 0.0-1.2 Eos Abs (test code=AEOS) 0.10 K/cumm 0.00-0.74 Baso Abs (test code=ABASO) 0.0 K/cumm 0.00-0.21 POC Glucose, [id number] 07:03:00 Test Item Value Reference Range Comments POC Glucose (test 147 mg/dL 70-115 If you consider your patient code=POCGLUC) critically ill, the Madeline Accu-Chek InformII metershould not be used for Glucose determinations.Draw a venous Glucose and send to the Main Lab for Analysis. POC Glucose, [id number] 22:05:00 Test Item Value Reference Range Comments POC Glucose (test 134 mg/dL 70-115 If you consider your patient code=POCGLUC) critically ill, the Madeline Accu-Chek InformII metershould not be used for Glucose determinations.Draw a venous Glucose and send to the Main Lab for Analysis. Blood Gas+Lytes+Glu+Ca+Hgb+Hct+[id number] 18:31:00 Test Item Value Reference Range Comments [...] Celcius code=PTTEMP) Comment (test code=COMMENT) [email or web address] Puncture Site (test code=PUNSITE) Radial. R Drawing Tech ID (test medel fi code=DRAWTECH) iPAP (test code=IPAP) 0 cmH2O Respiratory Rate (test code=RESP 0 RATE) Lactic Acid, Blood Gas (test 0.4 mmol/L code=BGLA) CT CHEST W/O [id number] 16:48:03CT CHEST W/O CONTRASTLOCATION CODE: R16 HISTORY: [...] bilateral axillary, prevascular, andparatracheal lymph nodes.Influenza B [id number] 14:36:00Specimen: NasalCollected: 09/24/2017 14:04 Status: Final Last [...] Culture of negative samples is recommended.Influenza A [id number] 14:34:00Specimen: NasalCollected: 09/24/2017 14:04 Status: Final Last [...] Culture of negative samples is recommended.Comprehensive Metabolic [id number] 13:54:00 Test Item Value Reference Range Comments [...] race is not provided, and the patient isAfrican-Algerian, multiply by 1.212. If sex is not provided, and thepatient is female, multiply by 0.742. Results for patients <18 years ofage have not been validated by the MDRD study and should be interpretedwith caution.eGFR Result Interpretation:eGFR > or=60 is in the Normal RangeeGFR < 60 may mean kidney diseaseeGFR < 15 may mean kidney failureRanges recommended by the National Kidney Foundation,http://nkdep.nih .gov Troponin [id number] 13:54:00 Test Item Value Reference Range Comments Troponin T (test code=MADHAV) 0.124 ng/mL 0.000-0.090 Snl-[id number] 13:54:00 Test Item Value Reference Range Comments NT ProBnp (test code=PBNP) >04264 pg/mL 0-124 CK [id number] 13:54:00 Test Item Value Reference Range Comments CK (test code=CK) 222 U/L 39-308 CKMB (test code=CKMB) 3.1 ng/mL 0.0-4.9 CKMB% (test code=CKMBP) 1.4 % 0.0-3.4 CK [id number] 13:54:00 Test Item Value Reference Range Comments CK (test code=CK) 222 U/L 39-308 Partial Thromboplastin [id number] 13:43:00 Test Item Value Reference Range Comments aPTT (test code=PTT) 35.70 seconds 24.39-37.25 Prothrombin [id number] 13:43:00 Test Item Value Reference Range Comments PT (test code=PT) 11.30 seconds 9.78-13.35 INR (test code=INR) 0.99 Ratio 0.6-1.2 Lactic Acid [id number] 13:41:00 Test Item Value Reference Range Comments Lactic Acid, Bld (test code=LAC) 1.3 mmol/L 0.5-1.9 CBC with [id number] 13:32:00 Test Item Value Reference Range Comments [...] Lymph Abs (test code=ALYMPH) 1.2 K/cumm 0.5-4.6 Todd Abs (test code=AMONO) 0.6 K/cumm 0.0-1.2 Eos Abs (test code=AEOS) 0.23 K/cumm 0.00-0.74 Baso Abs (test code=ABASO) 0.0 K/cumm 0.00-0.21 XR CHEST 1 [id number] 12:50:14XR CHEST 1 VIEWLOCATION: [id number]: None.INDICATION: CoughDISCUSSION:A single portable chest radiograph was [...]
--- NOTE | 2018-02-24 22:16 | RAD REPORT ---
EXAM DESCRIPTION: RAD - Chest Pa And Lat (2 Views) - 02/24/2018 10:10 pm CLINICAL HISTORY: Dyspnea;Cough Chest pain. COMPARISON: Chest Single View dated 02/17/2018; Chest Single View dated 09/02/2017; Chest Single View d ated 05/02/2017; Chest Single View dated 03/15/2016 FINDINGS: Mild to moderate pulmonary edema is suspected. Small left and a small to moderate right pl eural effusion is noted. The heart is mildly to moderately enlarged with postsurgical changes present . No displaced fractures. Sternotomy wires present. IMPRESSION: Mild to moderate CHF/ volume overload pattern, similar to 02/17/2018 study.
[2018-02-24 22:56] LABS: Absolute Lymphocytes (CBC) 1.4 K/uL (0.7-4.9); Absolute Monocytes 0.8 K/uL (0.1-1.3); Absolute Neutrophil 5.3 K/uL (1.8-8.0); Eosinophils % 0.9 % (0-4.4); Hematocrit 26.8 % (39.6-49.0); Lymphocytes % 18.3 % (15.3-44.8); MCH 31.6 pg (27.0-35.0); MCV 95.8 fL (80-100); MPV 6.9 fL (7.6-11.3)
[2018-02-24 23:25] LABS: Potassium 4.2 mmol/L (3.5-5.1)
--- NOTE | 2018-02-25 | EDPHYS ---
Physician Documentation [facility] Name: Salvatore Goldman Age: 62 yrs Sex: Male : 1955 Arrival Date: 02/24/2018 Time: 21:51 Bed 7 Private MD: ED Physician Manuel Montgomery HPI: 02/24 21:51 This 62 yrs old Black Male presents to ER via Unassigned with complaints of Shortness rn Of Breath. 21:51 The patient has shortness of breath at rest. Onset: The symptoms/episode began/occurred rn 1 week(s) ago. Duration: The symptoms are intermittent. The patient's shortness of breath is aggravated by exertion, light activity. Severity of symptoms: At their worst the symptoms were mild in the emergency department the symptoms are unchanged. The patient has experienced similar episodes in the past. Reports sob, over last week, seen yesterday at [facility], told had fluid overload, needed "double dialysis", has dialysis scheduled for tomorrow, couldn't wait.. Historical: - Allergies: 22:00 codeine sulfate; aa1 - Home Meds: 22:00 lamivudine 10 mg/mL Oral soln 2.5 mL once daily [Active]; rosuvastatin 5 mg Oral tab 1 aa1 tab nightly [Active]; Kaletra 200-50 mg Oral tab 2 tabs 2 times per day [Active]; Isentress 400 mg Oral tab 1 tab 2 times per day [Active]; calcium acetate 667 mg Oral tab 1 cap 3 times per day [Active]; - PMHx: 22:00 Cirrhosis; Dialysis; Hepatitis; HIV; Hyperlipidemia; Karposi Sarcoma (left leg); kidney aa1 failure; Diabetes - NIDDM; - PSHx: 22:00 Dialysis Fistula (left Arm); Heart Surgery; valve replacement; aa1 - Immunization history:: Pneumococcal vaccine is up to date, Flu vaccine is up to date. - Social history:: Smoking status: Patient/guardian denies using tobacco. - Ebola Screening: : Patient denies exposure to infectious person Patient denies travel to an Ebola-affected area in the 21 days before illness onset. ROS: 23:44 Constitutional: Negative for fever, chills, and weight loss, Eyes: Negative for injury, rn pain, redness, and discharge, Neck: Negative for injury, pain, and swelling, Cardiovascular: Negative for chest pain, + edema, Respiratory: + white sputum, + cough, + sob Abdomen/GI: Negative for abdominal pain, nausea, vomiting, diarrhea, and constipation, MS/Extremity: Negative for injury and deformity, Skin: Negative for injury, rash, and discoloration, Neuro: Negative for headache, numbness, tingling, and seizure. Exam: 23:44 Constitutional: This is a well developed, well nourished patient who is awake, alert, rn mild tachypnea Head/Face: Normocephalic, atraumatic. Eyes: Pupils equal round and reactive to light, extra-ocular motions intact. Lids and lashes normal. Conjunctiva and sclera are non-icteric and not injected. Cornea within normal limits. Periorbital areas with no swelling, redness, or edema. Cardiovascular: tachycardic, regular Respiratory: + mild tachypnea with bibasilar crackles, no wheezing Abdomen/GI: Soft, non-tender, with normal bowel sounds. No distension or tympany. No guarding or rebound. No evidence of tenderness throughout. MS/ Extremity: Weak peripheral pulses, + pitting edema bilateral lower ext Neuro: Awake and alert, GCS 15, oriented to person, place, time, and situation. Cranial nerves II-XII grossly intact. Motor strength 5/5 in all extremities. Sensory grossly intact. Vital Signs: 21:51 BP 164 / 95; Pulse 113; Resp 28; Temp 99.3(O); Pulse Ox 95% on R/A; Weight 77.11 kg; aa1 Height 5 ft. 7 in. (170.18 cm); Pain 0/10; 22:43 BP 164 / 94; Pulse 109; Resp 22; Pulse Ox 100% on 3 lpm NC; Pain 0/10; aa1 23:35 BP 149 / 94; Pulse 107; Resp 16; Pulse Ox 99% on R/A; Pain 0/10; aa1 02/25 00:45 BP 149 / 92; Pulse 107; Resp 20; Temp 98.9; Pulse Ox 99% on 3 lpm NC; Pain 0/10; aa1 02/24 21:51 Body Mass Index 26.63 (77.11 kg, 170.18 cm) aa1 MDM: 02/24 21:51 Patient medically screened. rn 23:53 ED course: pt does make some urine, lasix ordered for some temporary relief overnight rn until dialysis.. 23:58 Differential diagnosis: Anemia CHF exacerbation, Myocardial Infarction pneumonia, rn Pneumothorax pulmonary edema. Data reviewed: vital signs, nurses notes, lab test result(s), EKG, radiologic studies, plain films, and as a result, I will admit patient. Counseling: I had a detailed discussion with the patient and/or guardian regarding: the historical points, exam findings, and any diagnostic results supporting the discharge/admit diagnosis, lab results, radiology results, the need for further work-up and treatment in the hospital. Response to treatment: the patient's symptoms have mildly improved after treatment, and as a result, I will admit patient. 02/24 21:54 Order name: Blood Culture Adult (2) rn 02/24 21:54 Order name: BMP; Complete Time: 23:48 rn 02/24 21:54 Order name: XRAY Chest Pa And Lat (2 Views); Complete Time: 22:19 rn 02/24 21:54 Order name: CBC with Diff; Complete Time: 23:01 rn 02/24 21:54 Order name: NT PRO-BNP; Complete Time: 23:48 rn 02/24 21:54 Order name: Troponin (emerg Dept Use Only); Complete Time: 23:16 rn 02/24 21:54 Order name: EKG; Complete Time: 21:54 rn 02/24 21:54 Order name: Cardiac monitoring; Complete Time: 22:03 rn 02/24 21:54 Order name: EKG - Nurse/Tech; Complete Time: 22:42 rn 02/24 21:54 Order name: IV Saline Lock; Complete Time: 22:42 rn 02/24 21:54 Order name: Labs collected and sent; Complete Time: 22:43 rn 02/24 21:54 Order name: O2 Per Protocol; Complete Time: 22:03 rn 02/24 21:54 Order name: O2 Sat Monitoring; Complete Time: 22:02 rn Administered Medications: 02/25 00:17 Drug: Lasix 40 mg Route: IVP; Site: right forearm; aa1 Disposition: 02/25/18 00:00 Hospitalization ordered by America Jane for Inpatient Admission. Preliminary diagnosis are End stage renal disease, Pulmonary edema, Dyspnea, unspecified. - Bed requested for Telemetry/MedSurg (Inpatient). - Status is Inpatient Admission. aa1 - Condition is Stable. - Problem is an ongoing problem. - Symptoms have improved. UTI on Admission? No Signatures: Dispatcher [employer] EDMS Marielle Sky RN RN Funmi Francisco RN RN aa1 Manuel Montgomery MD MD ornamenter: (The following items were deleted from the chart) 00:03 00:00 Hospitalization Ordered by America Jane MD for Inpatient Admission. Preliminary diagnosis is End stage renal disease; Pulmonary edema; Dyspnea, unspecified. Bed requested for Telemetry/MedSurg (Inpatient). Status is Inpatient Admission. Condition is Stable. Problem is an ongoing problem. Symptoms have improved. UTI on Admission? No. rn 00:59 00:03 02/25/2018 00:00 Hospitalization Ordered by America Jane MD for Inpatient aa1 Admission. Preliminary diagnosis is End stage renal disease; Pulmonary edema; Dyspnea, unspecified. Bed requested for Telemetry/MedSurg (Inpatient). Status is Inpatient Admission. Condition is Stable. Problem is an ongoing problem. Symptoms have improved. UTI on Admission? No. mw
--- NOTE | 2018-02-25 | ER ---
Nurse's Notes [facility] Name: Salvatore Goldman Age: 62 yrs Sex: Male : 1955 Arrival Date: 02/24/2018 Time: 21:51 Bed 7 Private MD: Diagnosis: End stage renal disease;Pulmonary edema;Dyspnea, unspecified Presentation: 02/24 21:51 Presenting complaint: Patient states: SOB for past few days. Reports he was seen at [address] ER in [place] yesterday for the same complaint and was discharged but he is not feeling any better. Reports valve replacement earlier this month and has been having problems with fluid build up since then. Transition of care: patient was not received from another setting of care. Onset of symptoms was February 21, 2018. Risk Assessment: Do you want to hurt yourself or someone else? Patient reports no desire to harm self or others. Initial Sepsis Screen: Does the patient meet any 2 criteria? RR > 20 per min. HR > 90 bpm. Yes Does the patient have a suspected source of infection? No. Patient's initial sepsis screen is negative. Care prior to arrival: Glucose check: 134 Oxygen administered. via a non-rebreather mask. 21:51 Method Of Arrival: EMS: [facility] aa1 21:51 Acuity: NARDA 3 aa1 Historical: - Allergies: 22:00 codeine sulfate; aa1 - Home Meds: 22:00 lamivudine 10 mg/mL Oral soln 2.5 mL once daily [Active]; rosuvastatin 5 mg Oral tab 1 aa1 tab nightly [Active]; Kaletra 200-50 mg Oral tab 2 tabs 2 times per day [Active]; Isentress 400 mg Oral tab 1 tab 2 times per day [Active]; calcium acetate 667 mg Oral tab 1 cap 3 times per day [Active]; - PMHx: 22:00 Cirrhosis; Dialysis; Hepatitis; HIV; Hyperlipidemia; Karposi Sarcoma (left leg); kidney aa1 failure; Diabetes - NIDDM; - PSHx: 22:00 Dialysis Fistula (left Arm); Heart Surgery; valve replacement; aa1 - Immunization history:: Pneumococcal vaccine is up to date, Flu vaccine is up to date. - Social history:: Smoking status: Patient/guardian denies using tobacco. - Ebola Screening: : Patient denies exposure to infectious person Patient denies travel to an Ebola-affected area in the 21 days before illness onset. Screenin:00 Abuse screen: Denies threats or abuse. Denies injuries from another. Nutritional aa1 screening: No deficits noted. Tuberculosis screening: No symptoms or risk factors identified. Fall Risk None identified. Assessment: 22:00 General: Appears in no apparent distress. uncomfortable, Behavior is calm, cooperative, aa1 appropriate for age. Pain: Denies pain. Neuro: Level of Consciousness is awake, alert, obeys commands, Oriented to person, place, time, situation, Moves all extremities. Speech is normal. Cardiovascular: Denies chest pain, palpitations, Heart tones S1 S2 present Capillary refill < 3 seconds Clubbing of nail beds is absent Rhythm is regular. Cardiovascular: Edema is 2+ to left midcalf, left ankle, left foot, right midcalf, right ankle and right foot. Respiratory: Reports shortness of breath at rest Airway is patent Respiratory effort is even, pursed lip, Respiratory pattern is tachypnea Breath sounds are clear bilaterally. Onset: The symptoms/episode began/occurred several days ago, the patient has moderate shortness of breath. GI: No signs and/or symptoms were reported involving the gastrointestinal system. : No signs and/or symptoms were reported regarding the genitourinary system. EENT: No signs and/or symptoms were reported regarding the EENT system. Derm: Skin is intact, is healthy with good turgor, Skin is pink, warm \T\ dry. Musculoskeletal: Circulation, motion, and sensation intact. Capillary refill < 3 seconds. 22:49 Reassessment: Patient appears in no apparent distress at this time. Patient and/or aa1 family updated on plan of care and expected duration. Pain level reassessed. Patient is alert, oriented x 3, equal unlabored respirations, skin warm/dry/pink. Awaiting lab results Patient states symptoms have improved. 23:30 Reassessment: Patient appears in no apparent distress at this time. Patient and/or aa1 family updated on plan of care and expected duration. Pain level reassessed. Patient is alert, oriented x 3, equal unlabored respirations, skin warm/dry/pink. Awaiting provider reassessment. 02/25 00:20 Reassessment: Patient appears in no apparent distress at this time. Patient and/or aa1 family updated on plan of care and expected duration. Pain level reassessed. Patient is alert, oriented x 3, equal unlabored respirations, skin warm/dry/pink. Bed assignment received but no admission orders in [facility] at this time. 00:45 Reassessment: Patient appears in no apparent distress at this time. Patient is alert, aa1 oriented x 3, equal unlabored respirations, skin warm/dry/pink. Report given to LAURYN Grubbs. Vital Signs: 02/24 21:51 BP 164 / 95; Pulse 113; Resp 28; Temp 99.3(O); Pulse Ox 95% on R/A; Weight 77.11 kg; aa1 Height 5 ft. 7 in. (170.18 cm); Pain 0/10; 22:43 BP 164 / 94; Pulse 109; Resp 22; Pulse Ox 100% on 3 lpm NC; Pain 0/10; aa1 23:35 BP 149 / 94; Pulse 107; Resp 16; Pulse Ox 99% on R/A; Pain 0/10; aa1 02/25 00:45 BP 149 / 92; Pulse 107; Resp 20; Temp 98.9; Pulse Ox 99% on 3 lpm NC; Pain 0/10; aa1 02/24 21:51 Body Mass Index 26.63 (77.11 kg, 170.18 cm) [facility] ED Course: 02/24 21:51 Patient arrived in ED. aa1 21:51 Manuel Montgomery MD is Attending Physician. rn 21:51 Arm band placed on right wrist. Patient placed in an exam room, on a stretcher. aa1 21:55 Triage completed. aa1 22:00 Patient has correct armband on for positive identification. Bed in low position. Call aa light in reach. tools administrator on. Pulse ox on. NIBP on. 22:00 EKG done, by ED staff, reviewed by Manuel Montgomery MD. aa1 22:09 Patient moved to radiology via wheelchair. kc2 22:10 X-ray completed. Patient tolerated procedure well. kc2 22:10 XRAY Chest Pa And Lat (2 Views) In Process Unspecified. EDMS 22:30 Oxygen administration via nasal cannula \T\ 3L/min. aa1 22:40 Initial lab(s) drawn, by ED staff, sent to lab. Inserted saline lock: 22 gauge in right aa1 forearm, using aseptic technique. Blood collected. 22:42 Funmi Francisco, LAURYN is Primary Nurse. aa1 23:59 America Jane MD is Hospitalizing Provider. rn 02/25 00:21 No provider procedures requiring assistance completed. Patient admitted, IV remains in aa1 place. Administered Medications: 00:17 Drug: Lasix 40 mg Route: IVP; Site: right forearm; aa1 Outcome: 00:00 Decision to Hospitalize by Provider. rn 00:45 Admitted to Tele accompanied by tech, family with patient, via stretcher, room 409, aa1 with oxygen, with chart, Report called to [facility] 00:45 Condition: stable 00:45 Instructed on the need for admit, Demonstrated understanding of instructions. 00:59 Patient left the ED. aa1 Signatures: Dispatcher [employer] EDMS Funmi Francisco, LAURYN RN aa1 Manuel Montgomery MD MD rn Carr, Kelsie kc2
[2018-02-25] MEDS ORDERED: FUROSEMIDE 40 MG/4 ML VIAL ONE (00:12)
--- NOTE | 2018-02-25 00:39 | P.HP ---
Certification for Inpatient Patient admitted to: Inpatient With expected LOS: >2 Midnights Practitioner: I am a practitioner with admitting privileges, knowledge of patient current condition, hospital course, and medical plan of care. Services: Services provided to patient in accordance with Admission requirements found in Title 42 Section 412.3 of the Code of Federal Regulations Patient History Date of Service: 02/25/18 Reason for admission: CHF History of Present Illness: Mr Goldman is a 62 years old male with history of HIV under treatment, Hepatitis C , chronic diastolic CHF, s/p mitral valve replacement (mechanical), severe pulmonary hypertension, who came to ED complaining of SOB. About 10 days ago he was admitted to this hospital due to CHF exacerbation. After receive HD, he improved and was discharged home. Gradually, his SOB was getting worse again, and yesterday went to [facility]. He was recommended to double the dose of lasix and resume outpatient HD. However, today his SOB was even worse and he decided to come here for evaluation and treatment. He denied any fever, chills, chest pain or palpitations. CXR consistent with venous congestion and bilateral pleural effusion. O2 Sat 95% on RA. Temp 99.3F. Lab work remarkable for significant BNP elevation [id number]. Allergies codeine sulfate Allergy (Uncoded 02/17/18 15:59) Unknown Home Medications: Calcium Acetate 1 cap PO TID 03/15/16 Lopinavir/Ritonavir [Kaletra 200-50 MG Tablet*] 2 tab PO BID 03/15/16 Raltegravir Potassium [Isentress] 1 tab PO BID 03/15/16 Rosuvastatin [Crestor*] 5 mg PO BEDTIME 03/15/16 Atorvastatin Calcium [Lipitor*] 1 tab PO BEDTIME 02/18/18 Lamivudine [Epivir] 25 mg PO BID 02/18/18 diphenhydrAMINE HCl [Diphenhydramine HCl] 1 cap PO BEDTIME 02/18/18 - Past Medical/Surgical History Diabetic: Yes -: HIV-AIDS -: Hepatitis C -: DM -: HTN -: Karposi Sarcoma of the LLE -: ESRD -: Cirrhosis -: ESRD on HD -: AV fistula to the LUE -: Mitral Valve Replacement Psychosocial/ Personal History: He has been with his current partner for years, 7-children, Disabled. - Family History Father -: Other (see notes) Notes: bilateral amputee, gout Mother -: Heart disease, Hypertension, Stroke - Social History Smoking Status: Never smoker Alcohol use: No CD- Drugs: No Caffeine use: No Place of Residence: Home Review of Systems 10-point ROS is otherwise unremarkable Physical Examination - Physical Exam General: Alert, In no apparent distress HEENT: Atraumatic, PERRLA, Mucous membr. moist/pink, EOMI, Sclerae nonicteric Neck: Supple, 2+ carotid pulse no bruit, No LAD, Without JVD or thyroid abnormality Respiratory: Diminished, Crackles/rales (bibasilar rales) Cardiovascular: Normal S1 S2, Edema Gastrointestinal: Normal bowel sounds, No tenderness Musculoskeletal: No tenderness Integumentary: No rashes Neurological: Normal speech, Normal strength at 5/5 x4 extr, Normal tone, Normal affect Lymphatics: No axilla or inguinal lymphadenopathy - Studies Laboratory Data (last 24 hrs) 02/24/18 22:30: WBC 7.6 D, Hgb 8.8 L, Hct 26.8 L, Plt Count 101 L D 02/24/18 22:30: Sodium 136, Potassium 4.2, BUN 42 H, Creatinine 6.90 H*, Glucose 121 H Assessment and Plan - Problems (Diagnosis) (1) Acute on chronic diastolic CHF (congestive heart failure) Current Visit: Yes Status: Acute (2) Diabetes mellitus Onset Date: 03/16/16 Current Visit: No Status: Chronic Qualifiers: Diabetes mellitus type: type 2 Diabetes mellitus longterm insulin use: without longterm use Diabetes mellitus complication status: without complication Qualified Code(s): E11.9 - Type 2 diabetes mellitus without complications (3) ESRD (end stage renal disease) Onset Date: 03/16/16 Current Visit: No Status: Chronic (4) HIV (human immunodeficiency virus infection) Onset Date: 03/16/16 Current Visit: No Status: Chronic (5) HTN (hypertension) Onset Date: 03/16/16 Current Visit: No Status: Chronic Qualifiers: Hypertension type: essential hypertension (6) Hepatitis C Onset Date: 03/16/16 Current Visit: No Status: Chronic Qualifiers: Viral hepatitis chronicity: chronic Hepatic coma status: without hepatic coma Qualified Code(s): B18.2 - Chronic viral hepatitis C - Plan The patient will be admitted to the hospital due to acute on chronic diastolic CHF. The patient needs HD, will consult Dr Washburn. I believe he suppose to be on Warfarin treatment, but look like he is not taking it. Will check INR stat and resume this medication. - Advance Directives Does patient have a Living Will: Yes Does patient have a Durable POA for Healthcare: Yes - Code Status/Comfort Care Code Status Assessed: Yes Code Status: Full Code
[2018-02-25] MEDS ORDERED: IPRATROPIUM BROM 0.5MG/2.5ML NEB PRN (01:11)
[2018-02-25] MEDS ORDERED: ALBUTEROL 2.5 MG/3 ML NEB SOL NEB PRN (01:11)
[2018-02-25] MEDS ORDERED: ACETAMINOPHEN 500 MG TAB PO PRN (01:11)
[2018-02-25 01:23] LABS: Protime INR 1.1
[2018-02-25] MEDS: ONDANSETRON 4 MG/2 ML VIAL IV PRN ×2 (01:40→17:54)
[2018-02-25] MEDS: INSULIN -REGULAR HUMAN 50 UNIT/0.5 ML ML SQ SCH ×4 (07:30→20:55)
[2018-02-25] MEDS ORDERED: EPOETIN ALFA 20,000 UNIT/ML SQ ONE (08:34)
[2018-02-25] MEDS ORDERED: MANNITOL 25% 12.5 GM/50 ML VIAL IV PRN (08:34)
[2018-02-25] MEDS ORDERED: NA CHLORIDE 0.9% 1,000 ML IV PRN (08:34)
[2018-02-25] MEDS ORDERED: ALBUMIN HUMAN 25% 50 ML IV SCH (09:00)
[2018-02-25] MEDS ORDERED: RALTEGRAVIR POTASSIUM 400 MG TABLET PO SCH (10:00)
[2018-02-25] MEDS: CA ACETATE 667 MG CAP PO SCH ×2 (12:00→17:28)
--- NOTE | 2018-02-25 15:43 | EKG ---
Test Date: 2018-02-24 Test Time: 22:16:26 Client Evaluator: BERENICE MEASUREMENT RESULTS: Intervals: Rate: 111 TX: 170 QRSD: 72 QT: 346 QTc: 470 [place]: P: 32 TX: 170 QRS: 68 T: 119 INTERPRETIVE STATEMENTS: Sinus tachycardia Nonspecific T wave abnormality Abnormal ECG Compared to ECG 02/17/2018 10:27:54 Sinus rhythm no longer present Ventricular premature complex(es) no longer present T-wave abnormality still present Electronically Signed On 02-25-18 15:41:12 CDT by Rafael Bedolla
[2018-02-25] MEDS: WARFARIN SODIUM 5 MG TAB PO SCH (17:27)
[2018-02-25] MEDS ORDERED: ENOXAPARIN 80 MG/0.8 ML SQ ONE (18:00)
[2018-02-25] MEDS ORDERED: ENOXAPARIN 40 MG/0.4 ML SQ ONE (18:00)
[2018-02-25] MEDS ORDERED: ENOXAPARIN 80 MG/0.8 ML SQ SCH (18:00)
--- NOTE | 2018-02-25 19:36 | PN ---
Date of Progress Note: 02/25/2018 Subjective: The patient seen and examined, chart reviewed, and case discussed with RN and Dr. Washburn. The patient was dialyzed today. States he feels about the same. Review of Systems: Negative except as above. Medications: Reviewed. Physical Examination: Vital Signs: Temperature 97.5, heart rate 109, blood pressure 161/95, respirations 20, O2 97% on 3 L via nasal cannula. General: Awake, alert, oriented x3. No acute distress. Ill-appearing male. CV: S1, S2. Murmur present. No rubs or gallops. Peripheral pulses present. Respiratory: Moving air well bilaterally. No wheezing. Gastrointestinal: Abdomen is soft, nontender, nondistended. Positive bowel sounds. Extremities: No clubbing, cyanosis, edema. Neurologic: Nonfocal. Laboratory Data: Glucose 120. Assessment And Plan: A 62-year-old male with: 1. Acute on chronic diastolic heart failure. We will continue with diuresis and we expect improvement with dialysis. Continue fluid restriction. Monitor I 's and O's. 2. Diabetes mellitus type 2 with long-term use of insulin. 3. End-stage renal disease, on hemodialysis. Dr. Washburn on board. 4. Human immunodeficiency virus. The patient states he follows with the clinic in [place]. His last CD4 count was appropriate. 5. Essential hypertension, stable. Resume home medications as appropriate. 6. Hepatitis C without hepatic coma, chronic. The patient is on an antivirals. 7. Status post mechanical mitral valve replacement. The patient apparently stated that he is not on anticoagulation. Will contact his clay miner at [facility] to further clarify 8. Gastrointestinal and deep venous thrombosis prophylaxis with PPI. Will add Lovenox. SA/MODL Voice ID: [id number] Report ID: [id number] KELLEY
[2018-02-25] MEDS: RITONAVIR PO SCH (20:49)
[2018-02-25] MEDS: LOPINAVIR PO SCH (20:49)
[2018-02-25] MEDS: RALTEGRAVIR 400 MG PO SCH (20:49)
[2018-02-25] MEDS: LAMIVUDINE PO SCH (20:50)
[2018-02-25] MEDS: ROSUVASTATIN 10 MG TAB PO SCH (20:50)
--- NOTE | 2018-02-25 21:56 | P.CNS ---
Date of Consult: 02/25/18 Reason for Consult: ESRD Requesting Physician: Ronen Diaz Chief Complaint: CHF History of Present Illness: Mr Goldman is a 62 years old male with history of HIV under treatment, Hepatitis C , chronic diastolic CHF, s/p mitral valve replacement (mechanical), severe pulmonary hypertension, who came to ED complaining of SOB. About 10 days ago he was admitted to this hospital due to CHF exacerbation. After receive HD, he improved and was discharged home. Gradually, his SOB was getting worse again, and yesterday went to [facility] ED. He was recommended to double the dose of lasix and resume outpatient HD. However, today his SOB was even worse and he decided to come here for evaluation and treatment. He denied any fever, chills, chest pain or palpitations. CXR consistent with venous congestion and bilateral pleural effusion. O2 Sat 95% on RA. Temp 99.3F. Lab work remarkable for significant BNP elevation [id number]. 21:51 This 62 yrs old Black Male presents to ER via Unassigned with complaints of Shortness rn Of Breath. 21:51 The patient has shortness of breath at rest. Onset: The symptoms/episode began/occurred rn 1 week(s) ago. Duration: The symptoms are intermittent. The patient's shortness of breath is aggravated by exertion, light activity. Severity of symptoms: At their worst the symptoms were mild in the emergency department the symptoms are unchanged. The patient has experienced similar episodes in the past. Reports sob, over last week, seen yesterday at [facility], told had fluid overload, needed "double dialysis", has dialysis scheduled for tomorrow, couldn't wait Allergies codeine sulfate Allergy (Uncoded 02/17/18 15:59) Unknown Home medications list reviewed: Yes Home Medications: Calcium Acetate 1 cap PO TIDWM 03/15/16 Lopinavir/Ritonavir [Kaletra 200-50 MG Tablet*] 2 tab PO BID 03/15/16 Raltegravir Potassium [Isentress] 1 tab PO Q12H 03/15/16 Rosuvastatin [Crestor*] 5 mg PO BEDTIME 03/15/16 Lamivudine [Epivir] 2.5 ml PO BID 02/18/18 - Past Medical/Surgical History Diabetic: Yes -: HIV-AIDS -: Hepatitis C -: DM -: HTN -: [place] Sarcoma of the LLE -: ESRD -: Cirrhosis -: ESRD on HD -: AV fistula to the LUE -: Mitral Valve Replacement Psychosocial/ Personal History: He has been with his current partner for years, 7-children, Disabled. - Family History Father Medical History: Diabetes, Other (see notes) Notes: bilateral amputee, gout Mother Medical History: Heart disease, Hypertension, Stroke - Social History Smoking Status: Never smoker Alcohol use: No CD- Drugs: No Caffeine use: No Place of Residence: Home Review of Systems 10-point ROS is otherwise unremarkable Respiratory: SOB with Excertion Cardiovascular: Edema Physical Examination Temp Pulse Resp BP Pulse Ox 97.7 F 115 H 18 157/88 H 98 02/25/18 16:00 02/25/18 16:00 02/25/18 16:00 02/25/18 16:00 02/25/18 16:00 General: Oriented x3, Cooperative HEENT: Atraumatic Neck: JVD distended Respiratory: Diminished Cardiovascular: Regular rate/rhythm, No rubs, Edema Gastrointestinal: Soft and benign, Non-distended Musculoskeletal: No clubbing, No contractures Integumentary: No rashes, No cyanosis Laboratory Data (last 24 hrs) 02/24/18 22:30: WBC 7.6 D, Hgb 8.8 L, Hct 26.8 L, Plt Count 101 L D 02/24/18 22:30: Sodium 136, Potassium 4.2, BUN 42 H, Creatinine 6.90 H*, Glucose 121 H Imagings Data: EXAM DESCRIPTION: RAD - Chest Pa And Lat (2 Views) - 02/24/2018 10:10 pm CLINICAL HISTORY: Dyspnea;Cough Chest pain. COMPARISON: Chest Single View dated 02/17/2018; Chest Single View dated 09/02/2017 ; Chest Single View dated 05/02/2017; Chest Single View dated 03/15/2016 FINDINGS: Mild to moderate pulmonary edema is suspected. Small left and a small to moderate right pleural effusion is noted. The heart is mildly to moderately enlarged with postsurgical changes present. No displaced fractures. Sternotomy wires present. IMPRESSION: Mild to moderate CHF/ volume overload pattern, similar to 2017 study. Conclusions/Impression: A/ ESRD on HD. HTN with CKD. Anemia in CKD. Thombocytopenia. Diastolic CHF, A/C. BEBO/ Secondary HyperPTH. HIV. P/ Continue current POC and Medications. Arrange for acute HD today with aggressive UF. Give Epo. Restart home medications as indicated. Low sodium diet. No NSAIDs. AM labs. Daily weight. Thank you kindly for the consultation.
[2018-02-26 04:41] LABS: Protime INR 1.16
[2018-02-26 04:42] LABS: Absolute Lymphocytes (CBC) 1.3 K/uL (0.7-4.9); Absolute Monocytes 0.9 K/uL (0.1-1.3); Absolute Neutrophil 3.6 K/uL (1.8-8.0); Basophils % 0.8 % (0-1.3); Hematocrit 27.6 % (39.6-49.0); MCH 31.3 pg (27.0-35.0); MCV 96.3 fL (80-100); MPV 7.2 fL (7.6-11.3); Monocytes % 15.8 % (3.3-12.3); RBC Red Blood Cell Count 2.87 M/uL (4.33-5.43)
[2018-02-26 05:07] LABS: Potassium 4.8 mmol/L (3.5-5.1)
[2018-02-26 05:19] LABS: Blood Morphology Comment NOT SEEN (NOT SEEN); Platelet Estimate DECR; Urine White Blood Cell Casts OK
[2018-02-26] MEDS: INSULIN -REGULAR HUMAN 50 UNIT/0.5 ML ML SQ SCH ×4 (07:30→20:02)
[2018-02-26] MEDS: ENOXAPARIN 80 MG/0.8 ML SQ SCH ×2 (08:01→17:59)
[2018-02-26] MEDS: LOPINAVIR PO SCH ×2 (09:41→20:08)
[2018-02-26] MEDS: CA ACETATE 667 MG CAP PO SCH ×3 (09:41→16:20)
[2018-02-26] MEDS: RITONAVIR PO SCH ×2 (09:41→20:08)
[2018-02-26] MEDS: RALTEGRAVIR 400 MG PO SCH ×2 (09:42→20:08)
[2018-02-26] MEDS: LAMIVUDINE PO SCH ×2 (09:42→20:05)
[2018-02-26] MEDS: ONDANSETRON 4 MG/2 ML VIAL IV PRN ×2 (10:20→21:43)
--- NOTE | 2018-02-26 10:44 | ECHO ---
HEIGHT: 5 ft 8 in WEIGHT: 160 lb 12.8 oz DATE OF STUDY: 02/26/[address]: Ronen Diaz MD 2-DIMENSIONAL: YES M.MODE: YES DOPPLER: YES COLOR FLOW: YES TDS: NO PORTABLE: NO DEFINITY: NO BUBBLE STUDY: NO DIAGNOSIS: ASSESS MECHANICAL VALVE CARDIAC HISTORY: CATHERIZATION: NO SURGERY: NO PROSTHETIC VALVE: NO PACEMAKER: NO MEASUREMENTS (cm) DIASTOLIC (NORMALS) SYSTOLIC (NORMALS) IVSd 1.0 (0.6-1.2) LA Diam 5.4 (1.9-4.0) LVEF 40-45% LVIDd 3.6 (3.5-5.7) LVIDs 2.9 (2.0-3.5) %FS 18% LVPWd 1.0 (0.6-1.2) Ao Diam 2.2 (2.0-3.7) 2 DIMENSIONAL ASSESSMENT: RIGHT ATRIUM: DILATED LEFT ATRIUM: DILATED RIGHT VENTRICLE: NORMAL LEFT VENTRICLE: FLAIL MITRAL CORDAE TRICUSPID VALVE: NORMAL MITRAL VALVE: MECHANICAL PROSTHETIC PULMONIC VALVE: NORMAL AORTIC VALVE: NORMAL PERICARDIAL EFFUSION: NONE AORTIC ROOT: NORMAL LEFT VENTRICULAR WALL MOTION: PARADOXICAL SEPTAL MOTION. INFEROPOSTERIOR AKINESIS. DOPPLER/COLOR FLOW: MILD TRICUSPID REGURGITATION. ESTIMATED RIGHT VENTRICULAR SYSTOLIC PRESSURE 57mmHg. MODERATE PULMONARY HYPERTENSION. ESTIMATED RIGHT ATRIAL PRESSURE 15mmHg. NO EVIDENCE OF MITRAL STENOSIS OR MITRAL REGURGITATION. COMMENTS: DEPRESSED LEFT VENTRICULAR EJECTION FRACTION WITH WALL MOTION ABNORMALITY. DILATED LEFT AND RIGHT ATRIUM. MECHANICAL MITRAL PROSTHESIS WITH NORMAL DOPPLER. FLAIL MITRAL CORDAE. MILD TRICUSPID REGURGITATION. MODERATE PULMONARY HYPERTENSION. SMALL RIGHT PLEURAL EFFUSION. TECHNOLOGIST: David WILLOUGHBY
[2018-02-26] MEDS: WARFARIN SODIUM 5 MG TAB PO SCH (16:20)
--- NOTE | 2018-02-26 16:37 | PN ---
Date of Progress Note: 02/26/2018 Subjective: The patient is doing okay, seen and examined during dialysis. Feels better. Shortness of breath is improving and swelling is also slightly improving. Physical Examination: Vital Signs: Showing temperature of 97.9, pulse rate of 103, respiratory rate of 20, blood pressure 166/92. General: He appears in no acute distress. Lungs: Clear to auscultation anteriorly and posteriorly. Abdomen: Soft. Extremities: With 2+ edema noted in bilateral lower extremities. Laboratory Data: At this time have been reviewed. Hemoglobin, hematocrit, and platelet count have b een overall stable. Current Medications: Have all been reviewed. He is getting dialysis today and about 3.7 L is schedu led to be ultrafiltered to dialysis today. He has been restarted back on Coumadin 10 mg daily. Impression: 1.End-stage renal disease, on dialysis. The patient had came in with volume overload. He had dialy sis yesterday. He is getting an extra dialysis session tomorrow. The patient has been counseled on sodium intake and avoiding processed foods that leads to volume overload. He will follow up with daniel lysis unit tomorrow. 2.Anemia and chronic kidney disease, currently stable. Thrombocytopenia, being monitored. 3.Secondary hyperparathyroidism. 4.Human immunodeficiency virus. 5.Atrial fibrillation. The patient has been started on anticoagulation. We will need close monitor ing of his INR upon discharge. Plan: The patient is overall doing okay at this time. Continue Saturday, , Saturday dialysis for right now and monitor his volume status closely, and he has been counseled on salt and potassium intake. Continue to monitor his thrombocytopenia and volume status closely. VV/MODL Voice ID: [id number] Report ID: [id number]
--- NOTE | 2018-02-26 18:58 | PN ---
Date of Progress Note: 02/26/2018 Subjective: The patient is seen and examined. Chart reviewed and case discussed with RN. The patie nt was unhappy with the hospital food, has been ordering food from outside, having family members abdoulaye tao in. I explained to him that the patient has restricted diet and he is not allowed to eat outside food. Review of Systems: Negative except as above. Medications: Reviewed. Physical Examination: Vital Signs: Temperature 97.9, heart rate 103, blood pressure 156/92, respirations 20, O2 99% on 2 L via nasal cannula. General: Awake, alert, oriented x3. No acute distress. Elderly male. CV: S1, S2. Sinus tachycardia. No murmurs. Peripheral pulses present. Respiratory: Clear to auscultation bilaterally. No wheezing. Gastrointestinal: Abdomen is soft, nontender, nondistended. Positive bowel sounds. Extremities: No clubbing, cyanosis, edema. Neurologic: Nonfocal. Laboratory Data: Sodium 136, potassium 4.8, chloride 100, CO2 28, BUN 24, creatinine 5.10, glucose 1 03, calcium 8.8. INR 1.16. WBC 5.9, H and H 9 and 27.6, platelets 58. Blood cultures, no growth to date. Sputum culture pending. Assessment And Plan: A 62-year-old male with: 1.Acute on chronic diastolic heart failure. We will continue with diuresis, fluid restriction, francesca tor I's and O's. The patient is eating food from outside, which has high sodium levels. He has been counseled regarding that. 2.Diabetes mellitus type 2 with long-term use of insulin. Continue with Accu-Chek and sliding scale insulin. 3.End-stage renal disease, on hemodialysis. Appreciate Dr. Washburn's input. We will continue dialy sis as scheduled. 4.Human immunodeficiency virus. We will continue antiretrovirals. 5.Essential hypertension, stable. 6.Hepatitis C without hepatic coma, chronic. Continue home medications. 7.Status post mechanical mitral valve replacement, has not been on anticoagulations. Contacted the patient's special investigation unit investigator to put in the valve. The patient was given Coumadin; however, just never did follow up. Was started on Lovenox yesterday; however, this morning, his platelets were low. Therefo re, Lovenox was held. We will bridge to Coumadin. Cardiology has been consulted. Echocardiogram wa s done to evaluate valve, does not have a clot at this time. Echocardiogram shows EF of 40% to 45%, wall motion abnormality, flail mitral chordae, moderate pulmonary hypertension, small right pleural e ffusion. 8.Gastrointestinal and deep venous thrombosis prophylaxis with PPI and Lovenox. 9.Thrombocytopenia, likely related to his hepatitis C and chronic liver disease. No bleeding at thi s present time. INR is 1.16. We will continue to monitor. SA/MODL Voice ID: [id number] Report ID: [id number]
[2018-02-26] MEDS: ROSUVASTATIN 10 MG TAB PO SCH (20:07)
[2018-02-27 04:23] LABS: Protime INR 1.33
[2018-02-27 06:35] VITALS: BMI 24.3
[2018-02-27] MEDS: INSULIN -REGULAR HUMAN 50 UNIT/0.5 ML ML SQ SCH ×2 (07:30→11:30)
[2018-02-27] MEDS: CA ACETATE 667 MG CAP PO SCH ×2 (08:59→11:37)
[2018-02-27] MEDS: LOPINAVIR PO SCH (09:04)
[2018-02-27] MEDS: RITONAVIR PO SCH (09:04)
[2018-02-27] MEDS: LAMIVUDINE PO SCH (09:05)
[2018-02-27] MEDS: RALTEGRAVIR 400 MG PO SCH (09:05)
[2018-02-27 09:12] LABS: Absolute Lymphocytes (CBC) 1.9 K/uL (0.7-4.9); Absolute Neutrophil 3.3 K/uL (1.8-8.0); Basophils % 0.5 % (0-1.3); Eosinophils % 1.2 % (0-4.4); Hematocrit 29.3 % (39.6-49.0); Lymphocytes % 30.2 % (15.3-44.8); MCH 30.2 pg (27.0-35.0); MPV 7.7 fL (7.6-11.3); Monocytes % 15.3 % (3.3-12.3); RBC Red Blood Cell Count 3.02 M/uL (4.33-5.43)
[2018-02-27 09:30] LABS: Potassium 4.7 mmol/L (3.5-5.1)
[2018-02-27] MEDS: ENOXAPARIN 80 MG/0.8 ML SQ SCH (10:06)
--- NOTE | 2018-02-27 13:56 | PN ---
Date of Progress Note: 02/27/2018 Subjective: The patient was seen and examined. Chart reviewed and case discussed with RN. The bennie ent had minor nosebleed yesterday, likely from the nasal cannula. Otherwise, did well overnight. Review of Systems: Negative except as above. Medications: Reviewed. Physical Examination: Vital Signs: Temperature 97.5, heart rate 103, blood pressure 151/91, respirations 18, O2 saturation 91% on 2 L via nasal cannula. General: Awake, alert, oriented x3, not in any acute distress. CV: S1, S2. Sinus tachycardia. No murmurs. Respiratory: Moving air well bilaterally. No wheezing. Gastrointestinal: Abdomen is soft, nontender, nondistended. Positive bowel sounds. Extremities: No clubbing, cyanosis, or edema. Neurologic: Nonfocal. Laboratory Data: Sodium 137, potassium 4.7, chloride 101, CO2 28, BUN 19, creatinine 4.8, glucose 11 7, calcium 8.8. WBC 6.3, H and H 9.1 and 29.3, platelets 55, neutrophils 52%. INR 1.33. Blood cult ures, no growth to date. Sputum cultures pending. Assessment And Plan: A 62-year-old male with: 1.Tnfhy-uh-knhqyqt diastolic heart failure. Continue diuresis. Monitor I's and O's. Free fluid re striction, improving. 2.Diabetes mellitus type 2 with long-term use of insulin. We will continue sliding scale insulin. 3.End-stage renal disease, on hemodialysis. Nephrology on board. The patient was dialyzed back-to- back for the past 2 days. Next dialysis will be on Saturday. 4.Status post mechanical mitral valve. Continue Lovenox and bridge to Coumadin. INR is 1.3. We wi ll need INR to be between 2.5 and 3.5. 5.Hepatitis C without hepatic coma, chronic. 6.Essential hypertension, stable. 7.Human immunodeficiency virus. Continue antiretrovirals. 8.Gastrointestinal and deep venous thrombosis prophylaxis with PPI and Lovenox. 9.Thrombocytopenia, likely related to hepatitis C. No bleeding at this time. Continue to monitor. SA/MODL Voice ID: [id number] Report ID: [id number]
[2018-02-27 15:30] VITALS: BP 137/79; TEMP 97.4
[2018-02-27 19:35] VITALS: O2SAT 93
--- NOTE | 2018-02-27 20:24 | P.PN ---
Date of Service: 02/27/18 Vital Signs Temp Pulse Resp BP Pulse Ox 97.4 F 105 H 18 137/79 93 02/27/18 15:29 02/27/18 15:29 02/27/18 15:29 02/27/18 15:29 02/27/18 15:29 Microbiology Results 02/24/18 23:00 Blood - Blood Aerobic Blood Culture - Preliminary No growth in 24 hours. 02/24/18 23:00 Blood - Blood Anaerobic Blood Culture - Preliminary No growth in 24 hours. 02/24/18 22:30 Blood - Blood Aerobic Blood Culture - Preliminary No growth in 24 hours. 02/24/18 22:30 Blood - Blood Anaerobic Blood Culture - Preliminary No growth in 24 hours. Assessment/ Plan: Nephrology. CPS stable without CP or SOB. No acute events overnight. Feeling better tonight. Vitals, medications, blood work and imaging reviewed in the chart. General: Oriented x3, Cooperative HEENT: Atraumatic Neck: JVD non distended Respiratory: Diminished Cardiovascular: Regular rate/rhythm, No rubs, Edema Gastrointestinal: Soft and benign, Non-distended Musculoskeletal: No clubbing, No contractures Integumentary: No rashes, No cyanosis Laboratory Data (last 24 hrs) 02/24/18 22:30: WBC 7.6 D, Hgb 8.8 L, Hct 26.8 L, Plt Count 101 L D 02/24/18 22:30: Sodium 136, Potassium 4.2, BUN 42 H, Creatinine 6.90 H*, Glucose 121 H Imagings Data: EXAM DESCRIPTION: RAD - Chest Pa And Lat (2 Views) - 02/24/2018 10:10 pm CLINICAL HISTORY: Dyspnea;Cough Chest pain. COMPARISON: Chest Single View dated 02/17/2018; Chest Single View dated 09/02/2017 ; Chest Single View dated 05/02/2017; Chest Single View dated 03/15/2016 FINDINGS: Mild to moderate pulmonary edema is suspected. Small left and a small to moderate right pleural effusion is noted. The heart is mildly to moderately enlarged with postsurgical changes present. No displaced fractures. Sternotomy wires present. IMPRESSION: Mild to moderate CHF/ volume overload pattern, similar to 2017 study. Conclusions/Impression: A/ ESRD on HD. HTN with CKD. Anemia in CKD. Thombocytopenia. Diastolic CHF, A/C. BEBO/ Secondary HyperPTH. HIV. P/ Continue current POC and Medications. Next HD Saturday. Agree with coumadin; Will follow up with INR. Low sodium diet. No NSAIDs. AM labs. Daily weight.
--- NOTE | 2018-02-28 04:56 | DS ---
Date of Discharge: 02/27/2018 Consultants: Dr. Bedolla with Cardiology and Dr. Washburn with Nephrology. Admitting Diagnoses: 1.Acute on chronic diastolic heart failure. 2.Diabetes mellitus type 2. 3.End-stage renal disease, on hemodialysis. 4.Human immunodeficiency virus. 5.Hepatitis C. 6.Essential hypertension. Discharge Diagnoses: 1.Acute on chronic diastolic heart failure, improved. 2.Diabetes mellitus type 2 with long-term use of insulin. 3.End-stage renal disease, on hemodialysis. 4.Status post mechanical mitral valve, anticoagulation restarted. 5.Hepatitis C without hepatic coma, chronic. 6.Essential hypertension. 7.HIV, on antiretrovirals. 8.Thrombocytopenia related to liver disease. Hospital Course: The patient is a 62-year-old male who sees Dr. Mcdowell as his primary physician wi th history of HIV, on antiretrovirals, hepatitis C, chronic diastolic heart failure, mechanical veda l valve, severe pulmonary hypertension, who comes in with shortness of breath. The patient was found to have CHF exacerbation. He was recently admitted to the hospital for similar symptoms and after d ialysis, but discharged home. He was found to have venous congestion and pleural effusions on chest x-ray. His BNP was elevated at 153,501. The patient was dialyzed which improved his shortness of br eath. He was able to be weaned off oxygen. Of note, the patient does have a mechanical valve and wh rochelle Jerez cleared him regarding his anticoagulation, he stated that after placement of his valve. He was given Coumadin and he took 7 pills on the first day and 7 pills in the second day. Unclear if he geovani d the instruction. However, the patient has not been on anticoagulation since, contacted the cardiol ogist who placed the artificial valve and confirm that the patient is supposed to be on anticoagulati on. Lovenox was initiated at 1 mg/kg renally dosed and Coumadin was restarted. His INR was checked, trended up to 1.33. The patient was also seen by the Dr. Bedolla from Cardiology. Echocardiogram w as done on an emergent basis to ensure no clot in the valve. His EF was found to be 40%-45% with dep ressed left ventricular ejection fraction with wall motion abnormality mechanical mitral prosthesis w ith normal Doppler. Also had flail mitral chordae. The patient was then doing better. His shortnes s of breath resolved. He is no longer on oxygen. He is able to ambulate. He has been cleared for d ischarge from oncology consultant's standpoint and he will continue Lovenox shots for the next week and have h is INR checked on Saturday by Dr. Washburn with dialysis to keep INR between 2.5 and 3.5. Followup: Follow up with primary care physician 2-3 days. Follow up with study hall supervisor in [facility] in 1 week. Return to ER for worsening condition. Follow up with Nephrology on Saturday at dialysis . Diet: Renal. Activity: As tolerated. Medications: As per medication reconciliation list. Total time spent discharging the patient was 45 minutes. Physical Examination: General: Awake, alert, oriented, no acute distress. Elderly male. CV: S1, S2. No murmurs. Respiratory: Clear to auscultation bilaterally. No wheezing. Gastrointestinal: Abdomen is soft, nontender, nondistended. Positive bowel sounds. Extremities: No clubbing, cyanosis, edema. Neurologic: Nonfocal. SA/MODL Voice ID: [id number] Report ID: [id number]
--- NOTE | 2018-02-28 12:06 | CON ---
He was admitted to Dr. Diaz on 02/25/2018, for congestive heart failure. The patient was seen on __ for initiation of anticoagulation. He has a history of prosthetic mitral valve placement, t hat is mechanical. History Of Present Illness: Mr. Goldman, 62, has multiple medical problems, was just recently in the ospital for similar situation. He has a history of HIV, hepatitis, cirrhosis, end-stage renal diseas e on hemodialysis, heart failure with a normal ejection fraction, dyslipidemia, diabetes, and hyperte nsion. An echocardiogram today showed normal mitral valve function is mechanical. He has some moder ate pulmonary hypertension. His ejection fraction was slightly decreased, 40% to 45%. Creatinine is 6.9. Hemoglobin 8.8. EKG showed atrial tachycardia. Chest x-ray showed bilateral small pleural ef fusion and moderate congestive heart failure, has improved after Coumadin, but apparently his INR is normal home, 10 mg of Coumadin daily was restarted. His CHF symptoms are improving. Past Medical History: As stated earlier. Allergies: NONE. Review of Systems: Negative. Social History: Negative Family History: Noncontributory. Medications: Include Crestor, Lasix, Coumadin, and he has taken multiple antiviral medications. Physical Examination: Vital Signs: Stable, afebrile. HEENT: Negative. Neck: Supple, no bruit. Chest: Clear. Cardiac Exam: Regular rhythm and rate without any murmurs, gallops, or rubs. Abdomen: Benign. Extremities: Revealed no clubbing, cyanosis. He had 1+ edema. Diagnostic Data: As stated earlier. Impression And Plan: 1.The patient with acute exacerbation of chronic systolic congestive heart failure. 2.Human immunodeficiency virus. 3.Cirrhosis. 4.Hepatitis. 5.Hemodialysis for end-stage renal disease. 6.Dyslipidemia. 7.Diabetes. 8.Hypertension. 9.Anemia. 10.Status post mechanical mitral valve placement. The patient needs to be on Coumadin . He should have his INR checked Coumadin adjusted accordingly primary care physi kush. He is still not able to have a urine output and adjusted. Nephrology has been on b oard. Regarding his congestive heart failure that is mild, a low dose Coreg may be useful to keep hi s heart rate and blood pressure controlled and ejection fraction controlled. biggest pro blem is noncompliance with therapy. The case was discussed with Dr. Diaz. RIKI/JANET Voice ID: [id number] Report ID: [id number]
== END 2018-02-27 17:20 | disposition home or self-care (01) | DRG 291 ==
LOC: ER 21:48 → ERHOLD 02-25 00:01 → 4TH 02-25 00:47
PROVIDERS: ADMIT Internal Medicine; ATTEND Internal Medicine
DX: I13.2 Hypertensive heart and chronic kidney disease with heart failure and with stage 5 chronic kidney disease, or end stage renal disease (principal); I50.33 Acute on chronic diastolic (congestive) heart failure; N18.6 End stage renal disease; E11.22 Type 2 diabetes mellitus with diabetic chronic kidney disease; Z79.4 Long term (current) use of insulin; B18.2 Chronic viral hepatitis C; Z21 Asymptomatic human immunodeficiency virus [HIV] infection status; D69.6 Thrombocytopenia, unspecified; Z79.01 Long term (current) use of anticoagulants; Z95.2 Presence of prosthetic heart valve; I27.20 Pulmonary hypertension, unspecified
CPT/HCPCS: 36415; 71046; 80048; 82962; 83880; 84484; 85025; 85610; 87040; 87070; 87184; 87205; 90935; 93005; 93306; 94760; 96374; 99285; J0885; J1650; J2405

== ENCOUNTER 2018-04-16 16:12 | Emergency (ER) | payer OTHER ==
--- OUTSIDE RECORDS SUMMARY | 2018-04-16 16:17 | XMS REPORT ---
:1955 Author Organization [facility] Address Unavailable , Allergies, Adverse Reactions, Alerts [...] Patient Date Date Name Instruction AMLODIPINE AMLODIPINE [id number] Active Mo Active BESYLATE 10 MG BESYLATE Dicks OD ORAL TABLET CALCIUM ACETATE CALCIUM ACETATE 16029489680 Active Mo Active (PHOS BINDER) (PHOS BINDER) Dicks OD 667 MG ORAL CAPSULE CRESTOR 5 MG ROSUVASTATIN 23194597557 Active Mo Active ORAL TABLET CALCIUM Dicks OD EPIVIR SOLUTION LAMIVUDINE SOLN 58396329892 Active Mo Active Dicks OD ISENTRESS RALTEGRAVIR 50533582011 Active Mo Active TABLET POTASSIUM TABS Dicks OD KALETRA TABLET LOPINAVIR-RITONAVI 60576532224 Active Mo Active R TABS Dicks OD LAMIVUDINE LAMIVUDINE TABS 96265490982 Active Mo Active TABLET Dicks OD PROAIR HFA ALBUTEROL SULFATE 62322978500 Active Mo Active AEROSOL AERS Dicks OD SOLUTION PEDRO-EAMON RX B-COMPLEX W/ C & 70739014333 Active Mo Active TABLET FOLIC ACID TABS Dicks OD VITAMIN D2 ERGOCALCIFEROL 32621605960 Active Mo Active TABLET TABS Dicks OD Diagnostic Results Date Name Value Unit Range Description Append: Eye Exam - Hematology T-helper cells (CD4) count 602 uL Append: Eye Exam - Serology HIV-1RNA, serum, by PCR, quantitative 20 {Copies}/mL Procedures Code Procedure Name Date Entry Date Standard Description CPT-64806 Dispensing Visit (UNLIVSTED OPHTHALMOLOGICAL 10:14:39 CDT SERVICE/PROCEDURE) CPT-28959 Est Patient Comprehensive Opt - 11196 15:29:32 CDT CPT-17347 New Patient Intermediate Opt - 62214 14:28:41 CDT
--- OUTSIDE RECORDS SUMMARY | 2018-04-16 16:17 | XMS REPORT ---
:1955 [facility] [address] [place] [address] Care Team Providers Name Role Phone UNKNOWN, [...] Facility Department ID 2017-11-18 2017-11-20 [id number] 13:43:00 13:54:00 MAYLIN 2017-11-07 2017-11-07 Emergency E [facility] [id number] 20:22:00 20:22:00 2017-10-06 2017-10-06 [facility] [id number] 14:25:00 14:25:00 NEEL Results Test Description Test Time Test Comments Text Results Atomic Results Result Comments CD4/CD8 Ratio Profile 2017-11-27 08:04:00 Test Item Value Reference Range Comments Absolute CD 4 Matheson (test qpxj=946005) 188 /uL 359-1519 % CD 4 Pos. Lymph. (test exor=869868) 37.6 % 30.8-58.5 Abs. CD 8 Suppressor (test hsjg=393865) 183 /uL 109-897 % CD 8 Pos. Lymph. (test yvzz=127386) 36.6 % 12.0-35.5 CD4/CD8 Ratio (test atfe=018808) 1.03 0.92-3.72 WBC (test uuph=092137) 5.0 x10E3/uL 3.4-10.8 RBC (test klnz=417445) 3.00 x10E6/uL 4.14-5.80 Hemoglobin (test bvzr=712424) 9.6 g/dL 13.0-17.7 Hematocrit (test ufbz=600761) 27.6 % 37.5-51.0 MCV (test cqpn=576878) 92 fL 79-97 MCH (test miiz=490495) 32.0 pg 26.6-33.0 MCHC (test qzbw=514534) 34.8 g/dL 31.5-35.7 RDW (test dikn=594208) 15.5 % 12.3-15.4 Platelets (test fgxa=141733) 113 x10E3/uL 150-379 Neutrophils (test oqph=577033) 84 % Not Estab. Lymphs (test qmua=103243) 9 % Not Estab. Monocytes (test iqah=123509) 6 % Not Estab. Eos (test ekmn=325459) 1 % Not Estab. Basos (test kqgr=805711) 0 % Not Estab. Neutrophils (Absolute) (test fato=345483) 4.2 x10E3/uL 1.4-7.0 Lymphs (Absolute) (test hqhm=910893) 0.5 x10E3/uL 0.7-3.1 Monocytes(Absolute) (test qwps=048779) 0.3 x10E3/uL 0.1-0.9 Eos (Absolute) (test qhqf=443584) 0.0 x10E3/uL 0.0-0.4 Baso (Absolute) (test satw=449286) 0.0 x10E3/uL 0.0-0.2 Immature Granulocytes (test mevd=212270) 0 % Not Estab. Immature Grans (Abs) (test fpcq=456775) 0.0 x10E3/uL 0.0-0.1 Culture, Blood [id number] 08:42:00Specimen: BloodCollected: 11/19/2017 00 :21 Status: Final Last Updated: 11/24/2017 08:42 Culture Result (Final) ( Final) No Growth After 5 DaysCulture, Blood [id number] 08:42: 00Specimen: BloodCollected: 11/18/2017 20:30 Status: Final Last Updated: 08:42 Culture Result (Final) (Final) No Growth After 5 DaysPOC Glucose, [id number] 11:51:00 Test Item Value Reference Range Comments POC Glucose (test 148 mg/dL 70-115 Notify RN or MDIf you consider code=POCGLUC) your patient critically ill, the Madeline Accu-Chek InformII metershould not be used for Glucose determinations.Draw a venous Glucose and send to the Main Lab for Analysis. CK [id number] 07:42:00 Test Item Value Reference Range Comments CK (test code=CK) na U/L 39-308 CKMB (test code=CKMB) 4.0 ng/mL 0.0-4.9 CKMB% (test code=CKMBP) 0.0 % 0.0-3.4 [id number]-[id number] 07:39:00 Test Item Value Reference Range Comments NT ProBnp (test code=PBNP) >81853 pg/mL 0-124 Troponin [id number] 07:18:00 Test Item Value Reference Range Comments Troponin T (test code=MADHAV) 0.103 ng/mL 0.000-0.090 Lactate [id number] 07:18:00 Test Item Value Reference Range Comments LDH (test code=LDH) 271 U/L 135-225 POC Glucose, [id number] 06:50:00 Test Item Value Reference Range Comments POC Glucose (test 154 mg/dL 70-115 Notify RN or MDIf you consider code=POCGLUC) your patient critically ill, the Madeline Accu-Chek InformII metershould not be used for Glucose determinations.Draw a venous Glucose and send to the Main Lab for Analysis. CK [id number] 01:08:00 Test Item Value Reference Range Comments CK (test code=CK) na U/L 39-308 CKMB (test code=CKMB) 3.6 ng/mL 0.0-4.9 CKMB% (test code=CKMBP) 0.0 % 0.0-3.4 Troponin [id number] 01:08:00 Test Item Value Reference Range Comments Troponin T (test code=MADHAV) 0.106 ng/mL 0.000-0.090 XR CHEST 1 [id number] 21:02:01CLINICAL INFORMATION: Vascular congestion.Dictation Location: R 16Comparison: 11/18/2017 showed perihilar and lower lobe opacities. Technique: Portable AP 1951 hoursFINDINGS: Monitoring electrodes overlie the chest wall. Cardiomegaly withincreasing central vascular interstitial prominence with bibasilaropacities and effusions. No interval bone changes.IMPRESSION: Changes could indicate worsening cardiac decompensation orfluid overload.POC Glucose, [id number] 20:15:00 Test Item Value Reference Range Comments POC Glucose (test 139 mg/dL 70-115 If you consider your patient code=POCGLUC) critically ill, the Madeline Accu-Chek InformII metershould not be used for Glucose determinations.Draw a venous Glucose and send to the Main Lab for Analysis. POC Glucose, [id number] 16:52:00 Test Item Value Reference Range Comments POC Glucose (test 123 mg/dL 70-115 If you consider your patient code=POCGLUC) critically ill, the Madeline Accu-Chek InformII metershould not be used for Glucose determinations.Draw a venous Glucose and send to the Main Lab for Analysis. POC Glucose, [id number] 12:04:00 Test Item Value Reference Range Comments POC Glucose (test 140 mg/dL 70-115 If you consider your patient code=POCGLUC) critically ill, the Madeline Accu-Chek InformII metershould not be used for Glucose determinations.Draw a venous Glucose and send to the Main Lab for Analysis. POC Glucose, [id number] 08:01:00 Test Item Value Reference Range Comments POC Glucose (test 126 mg/dL 70-115 If you consider your patient code=POCGLUC) critically ill, the Madeline Accu-Chek InformII metershould not be used for Glucose determinations.Draw a venous Glucose and send to the Main Lab for Analysis. CK [id number] 06:03:00 Test Item Value Reference Range Comments CK (test code=CK) na U/L 39-308 CKMB (test code=CKMB) 2.8 ng/mL 0.0-4.9 CKMB% (test code=CKMBP) 0.0 % 0.0-3.4 Basic Metabolic [id number] 05:51:00 Test Item Value Reference Range Comments [...] race is not provided, and the patient isAfrican-Burkin[place], multiply by 1.212. If sex is not provided, and thepatient is female, multiply by 0.742. Results for patients <18 years ofage have not been validated by the MDRD study and should be interpretedwith caution.eGFR Result Interpretation:eGFR > or=60 is in the Normal RangeeGFR < 60 may mean kidney diseaseeGFR < 15 may mean kidney failureRanges recommended by the National Kidney Foundation,http://nkdep.nih .gov Magnesium, [id number] 05:51:00 Test Item Value Reference Range Comments Magnesium (test code=MG) 1.9 mg/dL 1.7-2.5 [id number] 05:51:00 Test Item Value Reference Range Comments Phosphorus (test code=PO4) 3.8 mg/dL 2.70-4.50 Pvd-[id number] 05:51:00 Test Item Value Reference Range Comments NT ProBnp (test code=PBNP) >42895 pg/mL 0-124 Troponin [id number] 05:51:00 Test Item Value Reference Range Comments Troponin T (test code=MADHAV) 0.126 ng/mL 0.000-0.090 CBC with [id number] 05:34:00 Test Item Value Reference Range Comments [...] Lymph Abs (test code=ALYMPH) 0.4 K/cumm 0.5-4.6 [place] Abs (test code=AMONO) 0.6 K/cumm 0.0-1.2 Eos Abs (test code=AEOS) 0.13 K/cumm 0.00-0.74 Baso Abs (test code=ABASO) 0.0 K/cumm 0.00-0.21 CK [id number] 18:39:00 Test Item Value Reference Range Comments CK (test code=CK) HIDE U/L 39-308 CKMB (test code=CKMB) 3.2 ng/mL 0.0-4.9 CKMB% (test code=CKMBP) HIDE % 0.0-3.4 Troponin [id number] 18:39:00 Test Item Value Reference Range Comments Troponin T (test code=MADHAV) 0.126 ng/mL 0.000-0.090 Hep B Surface [id number] 18:39:00 Test Item Value Reference Range Comments Hep Bs Ag (test code=HBSAG) Nonreactive Non-Reactive POC Glucose, [id number] 16:47:00 Test Item Value Reference Range Comments POC Glucose (test 143 mg/dL 70-115 If you consider your patient code=POCGLUC) critically ill, the Madeline Accu-Chek InformII metershould not be used for Glucose determinations.Draw a venous Glucose and send to the Main Lab for Analysis. XR CHEST 1 [id number] 08:18:18EXAM: Portable AP chest x-rayLOCATION: R16 INDICATION: CoughCOMPARISON: 11/07/2017FINDINGS:The cardiacsilhouette is stable enlargement. There are increasinginterstitial opacities, most evident in the perihilar regions and lowerlobes. There is blunting of the costophrenic angles bilaterally. Thereis no discernible pneumothorax.IMPRESSION:Increasing perihilar and bilateral lower lobe opacities compared to theprior exam dated 11/07. Findings may represent pulmonary edema orpneumonia in the appropriate clinical setting.Comprehensive Metabolic [id number] 08:05:00 Test Item Value Reference Range Comments [...] race is not provided, and the patient isAfrican-Burkinan, multiply by 1.212. If sex is not provided, and thepatient is female, multiply by 0.742. Results for patients <18 years ofage have not been validated by the MDRD study and should be interpretedwith caution.eGFR Result Interpretation:eGFR > or=60 is in the Normal RangeeGFR < 60 may mean kidney diseaseeGFR < 15 may mean kidney failureRanges recommended by the National Kidney Foundation,http://nkdep.nih .gov CK [id number] 08:05:00 Test Item Value Reference Range Comments CK (test code=CK) 149 U/L 39-308 Troponin [id number] 08:02:00 Test Item Value Reference Range Comments Troponin T (test code=MADHAV) 0.114 ng/mL 0.000-0.090 Jau-[id number] 08:02:00 Test Item Value Reference Range Comments NT ProBnp (test code=PBNP) >27104 pg/mL 0-124 CBC with Bhxkjjdakdai9660-89-61 07:53:00 Test Item Value Reference Range Comments [...] Lymph Abs (test code=ALYMPH) 0.9 K/cumm 0.5-4.6 [place] Abs (test code=AMONO) 0.4 K/cumm 0.0-1.2 Eos Abs (test code=AEOS) 0.11 K/cumm 0.00-0.74 Baso Abs (test code=ABASO) 0.0 K/cumm 0.00-0.21 XR CHEST 1 [id number] 21:38:09EXAM: CHEST ONE VIEWINDICATION: CoughCOMPARISON: October 06, 2017TECHNIQUE: AP view of the chest.FINDINGS: The cardiomediastinal silhouette is unchanged. Mild congestive changesbilaterally. No pneumothorax or pleural effusion is identified. Theosseous structures are unremarkable.IMPRESSION: Diffuse congestive changes bilaterally.LOCATION: R16US DUPLX EXT VEINS COMPRXavier, [id number] 20:09:34AFTER HOURS SERVICE ON: 10/06/2017 8: 09 PMRIGHT Lower Extremity Venous Duplex Doppler ExaminationLocation Code P85Xzwnmeq: SwellingTechnique: Real-time castillo scale, Doppler spectral analysis [...] imaged vessels.AFTER HOURS SERVICE ON: 10/06/2017 8:09 [facility] Lower Extremity Venous Duplex Doppler ExaminationLocation Code R50Gzvaasu : SwellingTechnique: Real-time castillo scale, Doppler spectral [...] of DVT in the imaged vessels.Comprehensive Metabolic [id number] 17 :40:00 Test Item Value Reference Range [...] race is not provided, and the patient isAfrican-Burkinan, multiply by 1.212. If sex is not [...] the National Kidney Foundation,http://nkdep.nih .gov CBC with [id number] 17:15:00 Test Item Value Reference Range Comments [...] Lymph Abs (test code=ALYMPH) 1.3 K/cumm 0.5-4.6 [place] Abs (test code=AMONO) 0.6 K/cumm 0.0-1.2 Eos Abs (test code=AEOS) 0.12 K/cumm 0.00-0.74 Baso Abs (test code=ABASO) 0.0 K/cumm 0.00-0.21 XR CHEST 1 [id number] 16:56:42CHEST 1 VIEW: [id number]: coughCOMPARISON: Sep 24, 2017FINDINGS:The heart is enlarged. There is engorgement of the central pulmonaryvasculature. There are patchy bibasilar areas of infiltrate oratelectasis with bilateral effusions. No pneumothorax is present. IMPRESSION: 1. Patchy areas of atelectasis or infiltrate in the lung bases withsmall bilateral effusions and vascular congestion most likely secondaryto CHF.Culture, Blood [id number] 14:58:00Specimen: BloodCollected: 2017 13:05 Status: Final Last Updated: 09/29/2017 14:58 (1) ER Bed 1 Culture Result (Final) (Final) No Growth After 5 DaysCulture, Blood [id number] 14:58:00Specimen: BloodCollected: 09/24/2017 12:50 Status: Final Last Updated: 09/29/2017 14:58 (1) ER Bed 1 Culture Result (Final) (Final) No Growth After 5 DaysPOC Glucose, [id number] 10:54:00 Test Item Value Reference Range Comments POC Glucose (test 168 mg/dL 70-115 If you consider your patient code=POCGLUC) critically ill, the Madeline Accu-Chek InformII metershould not be used for Glucose determinations.Draw a venous Glucose and send to the Main Lab for Analysis. POC Glucose, [id number] 07:16:00 Test Item Value Reference Range Comments POC Glucose (test 143 mg/dL 70-115 If you consider your patient code=POCGLUC) critically ill, the Madeline Accu-Chek InformII metershould not be used for Glucose determinations.Draw a venous Glucose and send to the Main Lab for Analysis. CBC with [id number] 07:15:00 Test Item Value Reference Range Comments [...] Lymph Abs (test code=ALYMPH) 1.3 K/cumm 0.5-4.6 [place] Abs (test code=AMONO) 0.7 K/cumm 0.0-1.2 Eos Abs (test code=AEOS) 0.07 K/cumm 0.00-0.74 Baso Abs (test code=ABASO) 0.0 K/cumm 0.00-0.21 Magnesium, [id number] 07:03:00 Test Item Value Reference Range Comments Magnesium (test code=MG) 2.0 mg/dL 1.7-2.5 Basic Metabolic [id number] 07:03:00 Test Item Value Reference Range Comments [...] race is not provided, and the patient isAfrican-Burkinan, multiply by 1.212. If sex is not [...] the National Kidney Foundation,http://nkdep.nih .gov POC Glucose, [id number] 21:40:00 Test Item Value Reference Range Comments POC Glucose (test 129 mg/dL 70-115 If you consider your patient code=POCGLUC) critically ill, the Madeline Accu-Chek InformII metershould not be used for Glucose determinations.Draw a venous Glucose and send to the Main Lab for Analysis. Hep B Surface [id number] 18:36:00 Test Item Value Reference Range Comments Hep Bs Ag (test code=HBSAG) Nonreactive Non-Reactive POC Glucose, [id number] 10:51:00 Test Item Value Reference Range Comments POC Glucose (test 216 mg/dL 70-115 If you consider your patient code=POCGLUC) critically ill, the Madeline Accu-Chek InformII metershould not be used for Glucose determinations.Draw a venous Glucose and send to the Main Lab for Analysis. POC Glucose, [id number] 07:57:00 Test Item Value Reference Range Comments POC Glucose (test 164 mg/dL 70-115 If you consider your patient code=POCGLUC) critically ill, the Madeline Accu-Chek InformII metershould not be used for Glucose determinations.Draw a venous Glucose and send to the Main Lab for Analysis. POC Glucose, [id number] 19:47:00 Test Item Value Reference Range Comments POC Glucose (test 140 mg/dL 70-115 Notify RN or MDIf you consider code=POCGLUC) your patient critically ill, the Madeline Accu-Chek InformII metershould not be used for Glucose determinations.Draw a venous Glucose and send to the Main Lab for Analysis. Troponin [id number] 19:36:00 Test Item Value Reference Range Comments Troponin T (test code=MADHAV) 0.121 ng/mL 0.000-0.090 CK [id number] 19:25:00 Test Item Value Reference Range Comments CK (test code=CK) 160 U/L 39-308 The value HIDE originally released by [employer] on 09/25/2017 19:12 waschanged to 160 by [employer] on 09/25/2017 19:24 CKMB (test code=CKMB) 3.0 ng/mL 0.0-4.9 CKMB% (test code=CKMBP) 1.9 % 0.0-3.4 The value HIDE originally released by [employer] on 09/25/2017 19:12 waschanged to 1.9 by [employer] on 09/25/2017 19:24 POC Glucose, [id number] 16:42:00 Test Item Value Reference Range Comments POC Glucose (test 123 mg/dL 70-115 If you consider your patient code=POCGLUC) critically ill, the Madeline Accu-Chek InformII metershould not be used for Glucose determinations.Draw a venous Glucose and send to the Main Lab for Analysis. POC Glucose, [id number] 12:09:00 Test Item Value Reference Range Comments POC Glucose (test 141 mg/dL 70-115 If you consider your patient code=POCGLUC) critically ill, the Madeline Accu-Chek InformII metershould not be used for Glucose determinations.Draw a venous Glucose and send to the Main Lab for Analysis. Hep B Surface [id number] 07:59:00 Test Item Value Reference Range Comments Hep Bs Ag (test code=HBSAG) Nonreactive Non-Reactive CK [id number] 07:43:00 Test Item Value Reference Range Comments CK (test code=CK) n/a U/L 39-308 CKMB (test code=CKMB) 2.4 ng/mL 0.0-4.9 CKMB% (test code=CKMBP) 0.0 % 0.0-3.4 Troponin [id number] 07:38:00 Test Item Value Reference Range Comments Troponin T (test code=MADHAV) 0.134 ng/mL 0.000-0.090 Thyroid Stimulating Hormone (TSH)2017-09-25 07:38:00 Test Item Value Reference Range Comments TSH (test code=TSH) 1.10 mIU/mL 0.270-4.200 [id number] 07:38:00 Test Item Value Reference Range Comments Phosphorus (test code=PO4) 3.4 mg/dL 2.70-4.50 Comprehensive Metabolic [id number] 07:38:00 Test Item Value Reference Range Comments [...] race is not provided, and the patient isAfrican-Burkinan, multiply by 1.212. If sex is not provided, and thepatient is female, multiply by 0.742. Results for patients <18 years ofage have not been validated by the MDRD study and should be interpretedwith caution.eGFR Result Interpretation:eGFR > or=60 is in the Normal RangeeGFR < 60 may mean kidney diseaseeGFR < 15 may mean kidney failureRanges recommended by the National Kidney Foundation,http://nkdep.nih .gov Magnesium, [id number] 07:38:00 Test Item Value Reference Range Comments Magnesium (test code=MG) 2.0 mg/dL 1.7-2.5 CK [id number] 07:31:00 Test Item Value Reference Range Comments CK (test code=CK) 159 U/L 39-308 Lipid [id number] 07:31:00 Test Item Value Reference Range Comments Cholesterol (test 118 mg/dL 0-200 code=CHOL) Triglycerides (test 170 mg/dL 9-200 code=TRIG) HDL (test code=HDL) 49 mg/dL 40-60 Chol/HDL (test 2.4 Ratio 0.0-5.0 code=CHOLPHDL) LDL, Calculated (test 35 0-130 (NOTE)RISK OF HEART code=LDLC) DISEASEPublished by Burkin[place] Heart AssociationAnalyte Optimal Boderline Increased RiskCHOL <200 200-239 >240TRIG <150 150-199 >200HDL Male: >60 <40HDL Female: >60 <50LDL <100 130-159 >160LDL NEAR OPTIMAL IS 100-129 VLDL (test code=VLDL) 34 mg/dL 5-40 LDL/HDL (test code=LDLPHDL) 1 Glycosylated [id number] 07:24:00 Test Item Value Reference Range Comments HBA1c (test code=HBA1C) 5.0 % 4.8-5.9 CBC with [id number] 07:20:00 Test Item Value Reference Range Comments [...] Lymph Abs (test code=ALYMPH) 0.8 K/cumm 0.5-4.6 [place] Abs (test code=AMONO) 0.5 K/cumm 0.0-1.2 Eos Abs (test code=AEOS) 0.10 K/cumm 0.00-0.74 Baso Abs (test code=ABASO) 0.0 K/cumm 0.00-0.21 POC Glucose, [id number] 07:03:00 Test Item Value Reference Range Comments POC Glucose (test 147 mg/dL 70-115 If you consider your patient code=POCGLUC) critically ill, the Madeline Accu-Chek InformII metershould not be used for Glucose determinations.Draw a venous Glucose and send to the Main Lab for Analysis. POC Glucose, [id number] 22:05:00 Test Item Value Reference Range Comments POC Glucose (test 134 mg/dL 70-115 If you consider your patient code=POCGLUC) critically ill, the Madeline Accu-Chek InformII metershould not be used for Glucose determinations.Draw a venous Glucose and send to the Main Lab for Analysis. Blood Gas+Lytes+Glu+Ca+Hgb+Hct+[id number] 18:31:00 Test Item Value Reference Range Comments [...] Celcius code=PTTEMP) Comment (test code=COMMENT) [email or web address] Puncture Site (test code=PUNSITE) Radial. R Drawing Tech ID (test medel fi code=DRAWTECH) iPAP (test code=IPAP) 0 cmH2O Respiratory Rate (test code=RESP 0 RATE) Lactic Acid, Blood Gas (test 0.4 mmol/L code=BGLA) CT CHEST W/O [id number] 16:48:03CT CHEST W/O CONTRASTLOCATION CODE: R16 HISTORY: [...] bilateral axillary, prevascular, andparatracheal lymph nodes.Influenza B [id number] 14:36:00Specimen: NasalCollected: 09/24/2017 14:04 Status: Final Last [...] Culture of negative samples is recommended.Influenza A [id number] 14:34:00Specimen: NasalCollected: 09/24/2017 14:04 Status: Final Last [...] Culture of negative samples is recommended.Comprehensive Metabolic [id number] 13:54:00 Test Item Value Reference Range Comments [...] race is not provided, and the patient isAfrican-Burkin[place], multiply by 1.212. If sex is not provided, and thepatient is female, multiply by 0.742. Results for patients <18 years ofage have not been validated by the MDRD study and should be interpretedwith caution.eGFR Result Interpretation:eGFR > or=60 is in the Normal RangeeGFR < 60 may mean kidney diseaseeGFR < 15 may mean kidney failureRanges recommended by the National Kidney Foundation,http://nkdep.nih .gov Troponin [id number] 13:54:00 Test Item Value Reference Range Comments Troponin T (test code=MADHAV) 0.124 ng/mL 0.000-0.090 Vwm-[id number] 13:54:00 Test Item Value Reference Range Comments NT ProBnp (test code=PBNP) >53042 pg/mL 0-124 CK [id number] 13:54:00 Test Item Value Reference Range Comments CK (test code=CK) 222 U/L 39-308 CKMB (test code=CKMB) 3.1 ng/mL 0.0-4.9 CKMB% (test code=CKMBP) 1.4 % 0.0-3.4 CK [id number] 13:54:00 Test Item Value Reference Range Comments CK (test code=CK) 222 U/L 39-308 Partial Thromboplastin [id number] 13:43:00 Test Item Value Reference Range Comments aPTT (test code=PTT) 35.70 seconds 24.39-37.25 Prothrombin [id number] 13:43:00 Test Item Value Reference Range Comments PT (test code=PT) 11.30 seconds 9.78-13.35 INR (test code=INR) 0.99 Ratio 0.6-1.2 Lactic Acid [id number] 13:41:00 Test Item Value Reference Range Comments Lactic Acid, Bld (test code=LAC) 1.3 mmol/L 0.5-1.9 CBC with [id number] 13:32:00 Test Item Value Reference Range Comments [...] Lymph Abs (test code=ALYMPH) 1.2 K/cumm 0.5-4.6 [place] Abs (test code=AMONO) 0.6 K/cumm 0.0-1.2 Eos Abs (test code=AEOS) 0.23 K/cumm 0.00-0.74 Baso Abs (test code=ABASO) 0.0 K/cumm 0.00-0.21 XR CHEST 1 [id number] 12:50:14XR CHEST 1 VIEWLOCATION: [id number]: None.INDICATION: CoughDISCUSSION:A single portable chest radiograph was [...]
--- NOTE | 2018-04-16 18:07 | EDPHYS ---
Physician Documentation [facility] Name: Salvatore Goldman Age: 62 yrs Sex: Male : 1955 Arrival Date: 04/16/2018 Time: 16:14 Bed 18 Private MD: out of town, doctor ED Physician Walter Jalloh HPI: 04/16 17:46 This 62 yrs old Black Male presents to ER via Ambulatory with complaints of Eye Problem.snw 17:46 The patient is experiencing blurred vision, The patient sustained None. to the left snw eye, caused by an unknown mechanism. Onset: The symptoms/episode began/occurred suddenly. Duration: the symptoms are continuous. Associated signs and symptoms: Pertinent positives: None. Patient wears glasses. Severity of symptoms: At their worst the symptoms were moderate. The patient has not experienced similar symptoms in the past. The patient has been recently seen by a physician: [facility]. Historical: - Allergies: 16:16 codeine sulfate; sg - Home Meds: 17:59 Kaletra 200-50 mg Oral tab 2 tabs 2 times per day [Active]; atorvastatin 20 mg oral tab ph 1 tab once daily [Active]; Vitamin D Oral 50,000 unit weekly [Active]; warfarin 5 mg Oral tab 1 tab once daily [Active]; metoprolol tartrate 25 mg Oral tab 1 tab once daily [Active]; Isentress 400 mg Oral tab 1 tab 2 times per day [Active]; aspirin 81 mg Oral chew 1 tab once daily [Active]; docusate sodium 100 mg Oral tab 1 tab 2 times per day [Active]; lamivudine 10 mg/mL Oral soln 2.5 mL once daily [Active]; - PMHx: 16:16 Cirrhosis; Diabetes - NIDDM; Dialysis; Hepatitis; HIV; Hyperlipidemia; Karposi Sarcoma sg (left leg); kidney failure; - PSHx: 16:16 Dialysis Fistula (left Arm); Heart Surgery; valve replacement; sg - Immunization history:: Adult Immunizations up to date. - Social history:: Smoking status: Patient/guardian denies using tobacco. - Ebola Screening: : Patient negative for fever greater than or equal to 101.5 degrees Fahrenheit, and additional compatible Ebola Virus Disease symptoms Patient denies exposure to infectious person Patient denies travel to an Ebola-affected area in the 21 days before illness onset No symptoms or risks identified at this time. ROS: 17:42 Constitutional: Negative for fever, chills, and weight loss, ENT: Negative for injury, snw pain, and discharge, Neck: Negative for injury, pain, and swelling, Cardiovascular: Negative for chest pain, palpitations, and edema, Respiratory: Negative for shortness of breath, cough, wheezing, and pleuritic chest pain, Abdomen/GI: Negative for abdominal pain, nausea, vomiting, diarrhea, and constipation, Back: Negative for injury and pain, : Negative for injury, bleeding, discharge, and swelling, MS/Extremity: Negative for injury and deformity, Skin: Negative for injury, rash, and discoloration, Neuro: Negative for headache, weakness, numbness, tingling, and seizure. 17:42 Eyes: Positive for blurry vision, visual disturbance, Negative for injury or acute deformity, itching, matting, pain, photophobia, redness, tearing. Exam: 17:42 Constitutional: This is a well developed, well nourished patient who is awake, alert, snw and in no acute distress. Head/Face: Normocephalic, atraumatic. ENT: Nares patent. No nasal discharge, no septal abnormalities noted. Tympanic membranes are normal and external auditory canals are clear. Oropharynx with no redness, swelling, or masses, exudates, or evidence of obstruction, uvula midline. Mucous membranes moist. Neck: Trachea midline, no thyromegaly or masses palpated, and no cervical lymphadenopathy. Supple, full range of motion without nuchal rigidity, or vertebral point tenderness. No Meningismus. Chest/axilla: Normal chest wall appearance and motion. Nontender with no deformity. No lesions are appreciated. 17:42 Respiratory: Lungs have equal breath sounds bilaterally, clear to auscultation and percussion. No rales, rhonchi or wheezes noted. No increased work of breathing, no retractions or nasal flaring. Abdomen/GI: Soft, non-tender, with normal bowel sounds. No distension or tympany. No guarding or rebound. No evidence of tenderness throughout. Back: No spinal tenderness. No costovertebral tenderness. Full range of motion. Skin: Warm, dry with normal turgor. Normal color with no rashes, no lesions, and no evidence of cellulitis. MS/ Extremity: Pulses equal, no cyanosis. Neurovascular intact. Full, normal range of motion. Neuro: Awake and alert, GCS 15, oriented to person, place, time, and situation. Cranial nerves II-XII grossly intact. Motor strength 5/5 in all extremities. Sensory grossly intact. Cerebellar exam normal. Normal gait. 17:42 Eyes: Periorbital structures: appear normal, Pupils: equal, round, and reactive to light and accomodation, though sluggish. 17:42 Eyes: Extraocular movements: no acute changes, Conjunctiva: normal, Corneas: are normal, Sclera: no appreciated abnormality, Anterior chamber: no acute changes, Lids and lashes: appear normal, funduscopic exam reveals no appreciated papilledema, no afferent papillary defect, Visual blancas: no acute changes, Nystagmus: is not appreciated, Examination of the other eye reveals no obvious gross abnormality, pt reports red line through central vision last pm and blurry vision to left today, no changes in right vision. 17:42 Cardiovascular: Rate: tachycardic, Heart sounds: normal, Edema: is not appreciated. Vital Signs: 16:22 BP 140 / 97; Pulse 100; Resp 16; Temp 98.4; Pulse Ox 97% on R/A; Pain 0/10; sg 17:52 BP 148 / 92; Pulse 92; Resp 16; Pulse Ox 98% on R/A; Pain 0/10; ph 18:45 BP 142 / 94; Pulse 94; Resp 18; Temp 97.7; Pulse Ox 99% on R/A; ph Visual Acuity: 17:48 Right Eye Visual acuity 20/15, ; Both Eyes Visual acuity 20/15; With Lenses; Pt unable ph to identify any letters on Snellen chart w/ L eye when R eye is covered MDM: 17:23 Patient medically screened. snw 17:48 Data reviewed: vital signs, EMS record. Data interpreted: Pulse oximetry: on room air snw is 97 %. Interpretation: normal. Counseling: I had a detailed discussion with the patient and/or guardian regarding: the historical points, exam findings, and any diagnostic results supporting the discharge/admit diagnosis. Physician consultation: Walter Jalloh MD in the emergency department to see patient at 17:48. 04/16 18:02 Order name: CBC w/o diff kdr 04/16 18:02 Order name: PT-INR [facility] 04/16 17:30 Order name: Visual Acuity; Complete Time: 17:53 snw Administered Medications: No medications were administered Disposition: 18:02 Co-signature as Attending Physician, Julieta Majano MD I agree with the assessment and [facility] plan of care. Disposition: 04/16/18 18:06 Discharged to Home. Impression: diminished vision to left eye, vitreous hemmorrhage. - Condition is Stable. - Discharge Instructions: Blurred Vision, Adult. - Medication Reconciliation Form, Thank You Letter form. - Follow up: Julieta Majano MD; When: 8:00 AM; Reason: Further diagnostic work-up, Recheck today's complaints, Continuance of care, Re-evaluation by your physician. - Problem is new. - Symptoms are unchanged. - Notes: Please be in Dr. Majano's office at 8:00 AM Signatures: Dispatcher [employer] EDMS Devang Erickson, LAURYN RN sg Walter Jalloh MD MD [facility] Katlyn Bojorquez, CABLE WAY OPERATOR-C CABLE WAY OPERATOR-Csnw Whitney Alex RN RN ph Corrections: (The following items were deleted from the chart) 18:06 18:06 04/16/2018 18:06 Discharged to Home. Impression: diminished vision to left eye, kdr vitreous hemmorrhage. Condition is Stable. Forms are Medication Reconciliation Form, Thank You Letter, Antibiotic Education, Prescription Opioid Use. Follow up: Julieta Majano; When: 8:00 AM; Reason: Further diagnostic work-up, Recheck today's complaints, Continuance of care, Re-evaluation by your physician. kdr 18:51 18:06 04/16/2018 18:06 Discharged to Home. Impression: diminished vision to left eye, ph vitreous hemmorrhage. Condition is Stable. Forms are Medication Reconciliation Form, Thank You Letter, Antibiotic Education, Prescription Opioid Use. Follow up: Julieta Majano; When: 8:00 AM; Reason: Further diagnostic work-up, Recheck today's complaints, Continuance of care, Re-evaluation by your physician. Problem is new. Symptoms are unchanged. kdr
--- NOTE | 2018-04-16 18:07 | ER ---
Nurse's Notes [facility] Name: Salvatore Goldman Age: 62 yrs Sex: Male : 1955 Arrival Date: 04/16/2018 Time: 16:14 Bed 18 Private MD: out of town, doctor Diagnosis: diminished vision to left eye, vitreous hemmorrhage Presentation: 04/16 16:14 Presenting complaint: Patient states: I cant really see out of my left eye, its really sg blurry. Theres like a line going across my eyeball. Its nothing but red, like there is blood in my eye or something. Denies trauma/injury/pain at this time. Transition of care: patient was not received from another setting of care. Onset of symptoms was April 15, 2018. Risk Assessment: Do you want to hurt yourself or someone else? Patient reports no desire to harm self or others. Initial Sepsis Screen: Does the patient meet any 2 criteria? No. Patient's initial sepsis screen is negative. Does the patient have a suspected source of infection? No. Patient's initial sepsis screen is negative. Care prior to arrival: None. 16:14 Method Of Arrival: Ambulatory sg 16:14 Acuity: NARDA 4 sg 17:32 Acuity: NARDA 2 ss Historical: - Allergies: 16:16 codeine sulfate; sg - Home Meds: 17:59 Kaletra 200-50 mg Oral tab 2 tabs 2 times per day [Active]; atorvastatin 20 mg oral tab ph 1 tab once daily [Active]; Vitamin D Oral 50,000 unit weekly [Active]; warfarin 5 mg Oral tab 1 tab once daily [Active]; metoprolol tartrate 25 mg Oral tab 1 tab once daily [Active]; Isentress 400 mg Oral tab 1 tab 2 times per day [Active]; aspirin 81 mg Oral chew 1 tab once daily [Active]; docusate sodium 100 mg Oral tab 1 tab 2 times per day [Active]; lamivudine 10 mg/mL Oral soln 2.5 mL once daily [Active]; - PMHx: 16:16 Cirrhosis; Diabetes - NIDDM; Dialysis; Hepatitis; HIV; Hyperlipidemia; Karposi Sarcoma sg (left leg); kidney failure; - PSHx: 16:16 Dialysis Fistula (left Arm); Heart Surgery; valve replacement; sg - Immunization history:: Adult Immunizations up to date. - Social history:: Smoking status: Patient/guardian denies using tobacco. - Ebola Screening: : Patient negative for fever greater than or equal to 101.5 degrees Fahrenheit, and additional compatible Ebola Virus Disease symptoms Patient denies exposure to infectious person Patient denies travel to an Ebola-affected area in the 21 days before illness onset No symptoms or risks identified at this time. Screenin:32 Abuse screen: Denies threats or abuse. Denies injuries from another. Nutritional ph screening: No deficits noted. Tuberculosis screening: No symptoms or risk factors identified. Fall Risk None identified. Assessment: 16:45 General: Appears in no apparent distress. comfortable, slender, Behavior is calm, ph cooperative, appropriate for age. Pain: Denies pain. Neuro: Level of Consciousness is awake, alert, obeys commands, Oriented to person, place, time, situation, Reports blurred vision in left eye. Cardiovascular: Capillary refill < 3 seconds Patient's skin is warm and dry. Respiratory: Airway is patent Respiratory effort is even, unlabored, Respiratory pattern is regular, symmetrical. EENT: Reports blurred vision in left eye states, " It's like there is a red line through my vision in my L eye." Pt denies pain, trauma, or photophobia. Derm: Skin is intact, is healthy with good turgor, Skin is pink, warm \\T\\ dry. Musculoskeletal: Circulation, motion, and sensation intact. Range of motion: intact in all extremities. 17:45 Reassessment: Patient appears in no apparent distress at this time. Patient and/or ph family updated on plan of care and expected duration. Pain level reassessed. Patient is alert, oriented x 3, equal unlabored respirations, skin warm/dry/pink. 18:49 Reassessment: Patient appears in no apparent distress at this time. Patient and/or ph family updated on plan of care and expected duration. Pain level reassessed. Patient is alert, oriented x 3, equal unlabored respirations, skin warm/dry/pink. 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 Vital Signs: 16:22 BP 140 / 97; Pulse 100; Resp 16; Temp 98.4; Pulse Ox 97% on R/A; Pain 0/10; sg 17:52 BP 148 / 92; Pulse 92; Resp 16; Pulse Ox 98% on R/A; Pain 0/10; ph 18:45 BP 142 / 94; Pulse 94; Resp 18; Temp 97.7; Pulse Ox 99% on R/A; ph Visual Acuity: 17:48 Right Eye Visual acuity 20/15, ; Both Eyes Visual acuity 20/15; With Lenses; Pt unable ph to identify any letters on Snellen chart w/ L eye when R eye is covered ED Course: 16:14 Patient arrived in ED. sg 16:14 out of town, doctor is Private Physician. sg 16:15 Triage completed. sg 16:15 Arm band placed on. sg 17:23 Katlyn Bojorquez FNP-C is PHCP. snw 17:23 Walter Jalloh MD is Attending Physician. snw 17:29 Whitney Alex, RN is Primary Nurse. ph 17:32 Patient has correct armband on for positive identification. Bed in low position. Call ph light in reach. Side rails up X 1. Pulse ox on. NIBP on. 17:46 Walter Jalloh MD is Attending Physician. kdr 18:02 Julieta Majano MD is Referral Physician. kdr 18:21 Missed attempt(s): 22 gauge in right forearm. Bleeding controlled, band aid applied, ph catheter tip intact. 18:37 Missed attempt(s): 22 gauge in right forearm. blood collected and sent to lab. Bleeding ss controlled, band aid applied, catheter tip intact. 18:51 No provider procedures requiring assistance completed. Patient did not have IV access ph during this emergency room visit. Administered Medications: No medications were administered Outcome: 18:06 Discharge ordered by . kdr 18:51 Discharged to home ambulatory, with family. ph 18:51 Condition: good 18:51 Discharge instructions given to patient, Instructed on discharge instructions, follow up and referral plans. Demonstrated understanding of instructions, follow-up care. 18:51 Patient left the ED. ph Signatures: Devang Erickson, RN RN Walter Jalloh MD MD kdr Katlyn Bojorquez FNP-C FNP-Raquel Ayers RN RN ss Whitney Alex, LAURYN RN ph Corrections: (The following items were deleted from the chart) 16:22 16:14 Presenting complaint: Patient states: I cant really see out of my left eye, its sg really blurry. Theres like a line going across my eyeball. Denies trauma/injury/pain at this time sg
[2018-04-16 18:53] LABS: Hematocrit 39.5 % (39.6-49.0); MCH 30.1 pg (27.0-35.0); MCV 93.5 fL (80-100); MPV 7.4 fL (7.6-11.3); RBC Red Blood Cell Count 4.23 M/uL (4.33-5.43)
[2018-04-16 18:56] LABS: Protime INR 2.93
[2018-04-16 18:58] VITALS: BP 142/94; TEMP 97.7; O2SAT 99
== END 2018-04-16 18:51 | disposition home or self-care (01) ==
LOC: ER 16:12
DX: H43.12 Vitreous hemorrhage, left eye (principal); I10 Essential (primary) hypertension; E11.9 Type 2 diabetes mellitus without complications; E78.5 Hyperlipidemia, unspecified; B20 Human immunodeficiency virus [HIV] disease; C46.9 Kaposi's sarcoma, unspecified; N19 Unspecified kidney failure; Z79.01 Long term (current) use of anticoagulants; Z79.82 Long term (current) use of aspirin; Z88.5 Allergy status to narcotic agent; Z95.4 Presence of other heart-valve replacement; Z99.2 Dependence on renal dialysis
CPT/HCPCS: 36415; 85027; 85610; 99283

== ENCOUNTER 2018-05-10 11:04 | Emergency (ER) | payer OTHER ==
[2012-05-05 09:01] VITALS: BP 144/79
--- OUTSIDE RECORDS SUMMARY | 2018-05-10 11:07 | XMS REPORT ---
:1955 Author Organization [facility] Address Unavailable , Allergies, Adverse Reactions, [...] Patient Date Date Name Instruction AMLODIPINE AMLODIPINE [id number] Active Mo Active BESYLATE 10 MG BESYLATE Dicks OD ORAL TABLET CALCIUM ACETATE CALCIUM ACETATE 11847861154 Active Mo Active (PHOS BINDER) (PHOS BINDER) Dicks OD 667 MG ORAL CAPSULE CRESTOR 5 MG ROSUVASTATIN 38343156619 Active Mo Active ORAL TABLET CALCIUM Dicks OD EPIVIR SOLUTION LAMIVUDINE SOLN 47901347744 Active Mo Active Dicks OD ISENTRESS RALTEGRAVIR 10854421179 Active Mo Active TABLET POTASSIUM TABS Dicks OD KALETRA TABLET LOPINAVIR-RITONAVI 26302812829 Active Mo Active R TABS Dicks OD LAMIVUDINE LAMIVUDINE TABS 14401908564 Active Mo Active TABLET Dicks OD PROAIR HFA ALBUTEROL SULFATE 25877486157 Active Mo Active AEROSOL AERS Dicks OD SOLUTION PEDRO-EAMON RX B-COMPLEX W/ C & 36795214743 Active Mo Active TABLET FOLIC ACID TABS Dicks OD VITAMIN D2 ERGOCALCIFEROL 30394811391 Active Mo Active TABLET TABS Dicks OD Diagnostic Results Date Name Value Unit Range Description Append: Eye Exam - Hematology T-helper cells (CD4) count 602 uL Append: Eye Exam - Serology HIV-1RNA, serum, by PCR, quantitative 20 {Copies}/mL Procedures Code Procedure Name Date Entry Date Standard Description CPT-97600 Dispensing Visit (UNLIVSTED OPHTHALMOLOGICAL 10:14:39 CDT SERVICE/PROCEDURE) CPT-53250 Est Patient Comprehensive Opt - 89358 15:29:32 CDT CPT-37923 New Patient Intermediate Opt - 40279 14:28:41 CDT
--- OUTSIDE RECORDS SUMMARY | 2018-05-10 11:07 | XMS REPORT ---
:1955 [facility] [address] [place] [address] Care Team Providers Name Role Phone UNKNOWN, [...] Facility Department ID 2017-11-18 2017-11-20 [facility] [id number] 13:43:00 13:54:00 [facility]LIN 2017-11-07 2017-11-07 Emergency E [facility] [id number] 20:22:00 20:22:00 2017-10-06 2017-10-06 Emergency [facility] [id number] 14:25:00 14:25:00 NEEL Results Test Description Test Time Test Comments Text Results Atomic Results Result Comments CD4/CD8 Ratio Profile 2017-11-27 08:04:00 Test Item Value Reference Range Comments Absolute CD 4 Nora (test idhh=090409) 188 /uL 359-1519 % CD 4 Pos. Lymph. (test uphn=553007) 37.6 % 30.8-58.5 Abs. CD 8 Suppressor (test txaa=343209) 183 /uL 109-897 % CD 8 Pos. Lymph. (test pvgr=726864) 36.6 % 12.0-35.5 CD4/CD8 Ratio (test sxbr=496447) 1.03 0.92-3.72 WBC (test ltrg=555033) 5.0 x10E3/uL 3.4-10.8 RBC (test whpk=576080) 3.00 x10E6/uL 4.14-5.80 Hemoglobin (test xmyq=871769) 9.6 g/dL 13.0-17.7 Hematocrit (test pkyt=593417) 27.6 % 37.5-51.0 MCV (test qore=570229) 92 fL 79-97 MCH (test oanb=725093) 32.0 pg 26.6-33.0 MCHC (test apxb=678661) 34.8 g/dL 31.5-35.7 RDW (test vvso=026503) 15.5 % 12.3-15.4 Platelets (test rbuh=869841) 113 x10E3/uL 150-379 Neutrophils (test tlgj=167597) 84 % Not Estab. Lymphs (test jtbp=819980) 9 % Not Estab. Monocytes (test bkxs=760290) 6 % Not Estab. Eos (test jjuf=313019) 1 % Not Estab. Basos (test sshi=395532) 0 % Not Estab. Neutrophils (Absolute) (test ejmn=032864) 4.2 x10E3/uL 1.4-7.0 Lymphs (Absolute) (test pmrj=174663) 0.5 x10E3/uL 0.7-3.1 Monocytes(Absolute) (test jqsv=031580) 0.3 x10E3/uL 0.1-0.9 Eos (Absolute) (test opbn=293595) 0.0 x10E3/uL 0.0-0.4 Baso (Absolute) (test tppr=599713) 0.0 x10E3/uL 0.0-0.2 Immature Granulocytes (test iqap=189758) 0 % Not Estab. Immature Grans (Abs) (test vcmk=588160) 0.0 x10E3/uL 0.0-0.1 Culture, Blood [id number] 08:42:00Specimen: BloodCollected: 11/19/2017 00 :21 Status: Final Last Updated: 11/24/2017 08:42 Culture Result (Final) ( Final) No Growth After 5 DaysCulture, Blood [id number] 08:42: 00Specimen: BloodCollected: 11/18/2017 20:30 Status: Final Last Updated: 08:42 Culture Result (Final) (Final) No Growth After 5 DaysPOC Glucose, [id number] 11:51:00 Test Item Value Reference Range Comments POC Glucose (test 148 mg/dL 70-115 Notify RN or MDIf you consider code=POCGLUC) your patient critically ill, the Madeline Accu-Chek InformII metershould not be used for Glucose determinations.Draw a venous Glucose and send to the Main Lab for Analysis. CK [id number] 07:42:00 Test Item Value Reference Range Comments CK (test code=CK) na U/L 39-308 CKMB (test code=CKMB) 4.0 ng/mL 0.0-4.9 CKMB% (test code=CKMBP) 0.0 % 0.0-3.4 Ldo-[id number] 07:39:00 Test Item Value Reference Range Comments NT ProBnp (test code=PBNP) >25652 pg/mL 0-124 Troponin [id number] 07:18:00 Test Item Value Reference Range Comments Troponin T (test code=MADHAV) 0.103 ng/mL 0.000-0.090 Lactate Tdnwdxcaopqlh3964-05-15 07:18:00 Test Item Value Reference Range Comments LDH (test code=LDH) 271 U/L 135-225 POC Glucose, [id number] 06:50:00 Test Item Value Reference Range Comments POC Glucose (test 154 mg/dL 70-115 Notify RN or MDIf you consider code=POCGLUC) your patient critically ill, the Madeline Accu-Chek InformII metershould not be used for Glucose determinations.Draw a venous Glucose and send to the Main Lab for Analysis. CK [id number] 01:08:00 Test Item Value Reference Range Comments CK (test code=CK) na U/L 39-308 CKMB (test code=CKMB) 3.6 ng/mL 0.0-4.9 CKMB% (test code=CKMBP) 0.0 % 0.0-3.4 Troponin [id number] 01:08:00 Test Item Value Reference Range Comments Troponin T (test code=MADHAV) 0.106 ng/mL 0.000-0.090 XR CHEST 1 [id number] 21:02:01CLINICAL INFORMATION: Vascular congestion.Dictation Location: R 16Comparison: 11/18/2017 showed perihilar and lower lobe opacities. Technique: Portable AP 1951 hoursFINDINGS: Monitoring electrodes overlie the chest wall. Cardiomegaly withincreasing central vascular interstitial prominence with bibasilaropacities and effusions. No interval bone changes.IMPRESSION: Changes could indicate worsening cardiac decompensation orfluid overload.POC Glucose, [id number] 20:15:00 Test Item Value Reference Range Comments POC Glucose (test 139 mg/dL 70-115 If you consider your patient code=POCGLUC) critically ill, the Madeline Accu-Chek InformII metershould not be used for Glucose determinations.Draw a venous Glucose and send to the Main Lab for Analysis. POC Glucose, [id number] 16:52:00 Test Item Value Reference Range Comments POC Glucose (test 123 mg/dL 70-115 If you consider your patient code=POCGLUC) critically ill, the Madeline Accu-Chek InformII metershould not be used for Glucose determinations.Draw a venous Glucose and send to the Main Lab for Analysis. POC Glucose, [id number] 12:04:00 Test Item Value Reference Range Comments POC Glucose (test 140 mg/dL 70-115 If you consider your patient code=POCGLUC) critically ill, the Madeline Accu-Chek InformII metershould not be used for Glucose determinations.Draw a venous Glucose and send to the Main Lab for Analysis. POC Glucose, [id number] 08:01:00 Test Item Value Reference Range Comments POC Glucose (test 126 mg/dL 70-115 If you consider your patient code=POCGLUC) critically ill, the Madeline Accu-Chek InformII metershould not be used for Glucose determinations.Draw a venous Glucose and send to the Main Lab for Analysis. CK [id number] 06:03:00 Test Item Value Reference Range Comments CK (test code=CK) na U/L 39-308 CKMB (test code=CKMB) 2.8 ng/mL 0.0-4.9 CKMB% (test code=CKMBP) 0.0 % 0.0-3.4 Basic Metabolic [id number] 05:51:00 Test Item Value Reference Range Comments [...] race is not provided, and the patient isAfrican-Burmese, multiply by 1.212. If sex is not provided, and thepatient is female, multiply by 0.742. Results for patients <18 years ofage have not been validated by the MDRD study and should be interpretedwith caution.eGFR Result Interpretation:eGFR > or=60 is in the Normal RangeeGFR < 60 may mean kidney diseaseeGFR < 15 may mean kidney failureRanges recommended by the National Kidney Foundation,http://nkdep.nih .gov Magnesium, [id number] 05:51:00 Test Item Value Reference Range Comments Magnesium (test code=MG) 1.9 mg/dL 1.7-2.5 Liojhvckjg8021-96-78 05:51:00 Test Item Value Reference Range Comments Phosphorus (test code=PO4) 3.8 mg/dL 2.70-4.50 Gzs-[id number] 05:51:00 Test Item Value Reference Range Comments NT ProBnp (test code=PBNP) >33619 pg/mL 0-124 Troponin [id number] 05:51:00 Test Item Value Reference Range Comments Troponin T (test code=MADHAV) 0.126 ng/mL 0.000-0.090 CBC with Zqcacmwwgluo9719-03-95 05:34:00 Test Item Value Reference Range Comments [...] Lymph Abs (test code=ALYMPH) 0.4 K/cumm 0.5-4.6 [place] Abs (test code=AMONO) 0.6 K/cumm 0.0-1.2 Eos Abs (test code=AEOS) 0.13 K/cumm 0.00-0.74 Baso Abs (test code=ABASO) 0.0 K/cumm 0.00-0.21 CK [id number] 18:39:00 Test Item Value Reference Range Comments CK (test code=CK) HIDE U/L 39-308 CKMB (test code=CKMB) 3.2 ng/mL 0.0-4.9 CKMB% (test code=CKMBP) HIDE % 0.0-3.4 Troponin [id number] 18:39:00 Test Item Value Reference Range Comments Troponin T (test code=MADHAV) 0.126 ng/mL 0.000-0.090 Hep B Surface [id number] 18:39:00 Test Item Value Reference Range Comments Hep Bs Ag (test code=HBSAG) Nonreactive Non-Reactive POC Glucose, [id number] 16:47:00 Test Item Value Reference Range Comments POC Glucose (test 143 mg/dL 70-115 If you consider your patient code=POCGLUC) critically ill, the Madeline Accu-Chek InformII metershould not be used for Glucose determinations.Draw a venous Glucose and send to the Main Lab for Analysis. XR CHEST 1 [id number] 08:18:18EXAM: Portable AP chest x-rayLOCATION: R16 INDICATION: CoughCOMPARISON: 11/07/2017FINDINGS:The cardiacsilhouette is stable enlargement. There are increasinginterstitial opacities, most evident in the perihilar regions and lowerlobes. There is blunting of the costophrenic angles bilaterally. Thereis no discernible pneumothorax.IMPRESSION:Increasing perihilar and bilateral lower lobe opacities compared to theprior exam dated 11/07. Findings may represent pulmonary edema orpneumonia in the appropriate clinical setting.Comprehensive Metabolic [id number] 08:05:00 Test Item Value Reference Range Comments [...] race is not provided, and the patient isAfrican-Burmese, multiply by 1.212. If sex is not provided, and thepatient is female, multiply by 0.742. Results for patients <18 years ofage have not been validated by the MDRD study and should be interpretedwith caution.eGFR Result Interpretation:eGFR > or=60 is in the Normal RangeeGFR < 60 may mean kidney diseaseeGFR < 15 may mean kidney failureRanges recommended by the National Kidney Foundation,http://nkdep.nih .gov CK [id number] 08:05:00 Test Item Value Reference Range Comments CK (test code=CK) 149 U/L 39-308 Troponin [id number] 08:02:00 Test Item Value Reference Range Comments Troponin T (test code=MADHAV) 0.114 ng/mL 0.000-0.090 Yli-[id number] 08:02:00 Test Item Value Reference Range Comments NT ProBnp (test code=PBNP) >21033 pg/mL 0-124 CBC with Eyurqgwctgvv4190-96-96 07:53:00 Test Item Value Reference Range Comments [...] Lymph Abs (test code=ALYMPH) 0.9 K/cumm 0.5-4.6 [place] Abs (test code=AMONO) 0.4 K/cumm 0.0-1.2 Eos Abs (test code=AEOS) 0.11 K/cumm 0.00-0.74 Baso Abs (test code=ABASO) 0.0 K/cumm 0.00-0.21 XR CHEST 1 [id number] 21:38:09EXAM: CHEST ONE VIEWINDICATION: CoughCOMPARISON: October 06, 2017TECHNIQUE: AP view of the chest.FINDINGS: The cardiomediastinal silhouette is unchanged. Mild congestive changesbilaterally. No pneumothorax or pleural effusion is identified. Theosseous structures are unremarkable.IMPRESSION: Diffuse congestive changes bilaterally.LOCATION: R16US DUPLX EXT VEINS COMPRXavier, [id number] 20:09:34AFTER HOURS SERVICE ON: 10/06/2017 8: 09 PMRIGHT Lower Extremity Venous Duplex Doppler ExaminationLocation Code X52Iiqsmhk: SwellingTechnique: Real-time castillo scale, Doppler spectral analysis [...] imaged vessels.AFTER HOURS SERVICE ON: 10/06/2017 8:09 [facility] Extremity Venous Duplex Doppler ExaminationLocation Code L57Cwldqzt : SwellingTechnique: Real-time castillo scale, Doppler spectral [...] of DVT in the imaged vessels.Comprehensive Metabolic [id number] 17 :40:00 Test Item Value Reference Range [...] race is not provided, and the patient isAfrican-Burmese, multiply by 1.212. If sex is not [...] the National Kidney Foundation,http://nkdep.nih .gov CBC with [id number] 17:15:00 Test Item Value Reference Range Comments [...] Lymph Abs (test code=ALYMPH) 1.3 K/cumm 0.5-4.6 [place] Abs (test code=AMONO) 0.6 K/cumm 0.0-1.2 Eos Abs (test code=AEOS) 0.12 K/cumm 0.00-0.74 Baso Abs (test code=ABASO) 0.0 K/cumm 0.00-0.21 XR CHEST 1 [id number] 16:56:42CHEST 1 VIEW: X84TETRHOM: coughCOMPARISON: Sep 24, 2017FINDINGS:The heart is enlarged. There is engorgement of the central pulmonaryvasculature. There are patchy bibasilar areas of infiltrate oratelectasis with bilateral effusions. No pneumothorax is present. IMPRESSION: 1. Patchy areas of atelectasis or infiltrate in the lung bases withsmall bilateral effusions and vascular congestion most likely secondaryto CHF.Culture, Blood [id number] 14:58:00Specimen: BloodCollected: 2017 13:05 Status: Final Last Updated: 09/29/2017 14:58 (1) ER Bed 1 Culture Result (Final) (Final) No Growth After 5 DaysCulture, Blood [id number] 14:58:00Specimen: BloodCollected: 09/24/2017 12:50 Status: Final Last Updated: 09/29/2017 14:58 (1) ER Bed 1 Culture Result (Final) (Final) No Growth After 5 DaysPOC Glucose, [id number] 10:54:00 Test Item Value Reference Range Comments POC Glucose (test 168 mg/dL 70-115 If you consider your patient code=POCGLUC) critically ill, the [facility]eline Accu-Chek InformII metershould not be used for Glucose determinations.Draw a venous Glucose and send to the Main Lab for Analysis. POC Glucose, [id number] 07:16:00 Test Item Value Reference Range Comments POC Glucose (test 143 mg/dL 70-115 If you consider your patient code=POCGLUC) critically ill, the [facility]eline Accu-Chek InformII metershould not be used for Glucose determinations.Draw a venous Glucose and send to the Main Lab for Analysis. CBC with [id number] 07:15:00 Test Item Value Reference Range Comments [...] Lymph Abs (test code=ALYMPH) 1.3 K/cumm 0.5-4.6 [place] Abs (test code=AMONO) 0.7 K/cumm 0.0-1.2 Eos Abs (test code=AEOS) 0.07 K/cumm 0.00-0.74 Baso Abs (test code=ABASO) 0.0 K/cumm 0.00-0.21 Magnesium, [id number] 07:03:00 Test Item Value Reference Range Comments Magnesium (test code=MG) 2.0 mg/dL 1.7-2.5 Basic Metabolic [id number] 07:03:00 Test Item Value Reference Range Comments [...] race is not provided, and the patient isAfrican-Burmese, multiply by 1.212. If sex is not [...] the National Kidney Foundation,http://nkdep.nih .gov POC Glucose, [id number] 21:40:00 Test Item Value Reference Range Comments POC Glucose (test 129 mg/dL 70-115 If you consider your patient code=POCGLUC) critically ill, the Madeline Accu-Chek InformII metershould not be used for Glucose determinations.Draw a venous Glucose and send to the Main Lab for Analysis. Hep B Surface [id number] 18:36:00 Test Item Value Reference Range Comments Hep Bs Ag (test code=HBSAG) Nonreactive Non-Reactive POC Glucose, [id number] 10:51:00 Test Item Value Reference Range Comments POC Glucose (test 216 mg/dL 70-115 If you consider your patient code=POCGLUC) critically ill, the Madeline Accu-Chek InformII metershould not be used for Glucose determinations.Draw a venous Glucose and send to the Main Lab for Analysis. POC Glucose, [id number] 07:57:00 Test Item Value Reference Range Comments POC Glucose (test 164 mg/dL 70-115 If you consider your patient code=POCGLUC) critically ill, the Madeline Accu-Chek InformII metershould not be used for Glucose determinations.Draw a venous Glucose and send to the Main Lab for Analysis. POC Glucose, [id number] 19:47:00 Test Item Value Reference Range Comments POC Glucose (test 140 mg/dL 70-115 Notify RN or MDIf you consider code=POCGLUC) your patient critically ill, the Madeline Accu-Chek InformII metershould not be used for Glucose determinations.Draw a venous Glucose and send to the Main Lab for Analysis. Troponin [id number] 19:36:00 Test Item Value Reference Range Comments Troponin T (test code=MADHAV) 0.121 ng/mL 0.000-0.090 CK [id number] 19:25:00 Test Item Value Reference Range Comments CK (test code=CK) 160 U/L 39-308 The value HIDE originally released by [employer] on 09/25/2017 19:12 waschanged to 160 by [employer] on 09/25/2017 19:24 CKMB (test code=CKMB) 3.0 ng/mL 0.0-4.9 CKMB% (test code=CKMBP) 1.9 % 0.0-3.4 The value HIDE originally released by [employer] on 09/25/2017 19:12 waschanged to 1.9 by [employer] on 09/25/2017 19:24 POC Glucose, [id number] 16:42:00 Test Item Value Reference Range Comments POC Glucose (test 123 mg/dL 70-115 If you consider your patient code=POCGLUC) critically ill, the Madeline Accu-Chek InformII metershould not be used for Glucose determinations.Draw a venous Glucose and send to the Main Lab for Analysis. POC Glucose, [id number] 12:09:00 Test Item Value Reference Range Comments POC Glucose (test 141 mg/dL 70-115 If you consider your patient code=POCGLUC) critically ill, the Madeline Accu-Chek InformII metershould not be used for Glucose determinations.Draw a venous Glucose and send to the Main Lab for Analysis. Hep B Surface [id number] 07:59:00 Test Item Value Reference Range Comments Hep Bs Ag (test code=HBSAG) Nonreactive Non-Reactive CK [id number] 07:43:00 Test Item Value Reference Range Comments CK (test code=CK) n/a U/L 39-308 CKMB (test code=CKMB) 2.4 ng/mL 0.0-4.9 CKMB% (test code=CKMBP) 0.0 % 0.0-3.4 Troponin [id number] 07:38:00 Test Item Value Reference Range Comments Troponin T (test code=MADHAV) 0.134 ng/mL 0.000-0.090 Thyroid Stimulating Hormone (TSH)2017-09-25 07:38:00 Test Item Value Reference Range Comments TSH (test code=TSH) 1.10 mIU/mL 0.270-4.200 [id number] 07:38:00 Test Item Value Reference Range Comments Phosphorus (test code=PO4) 3.4 mg/dL 2.70-4.50 Comprehensive Metabolic [id number] 07:38:00 Test Item Value Reference Range Comments [...] race is not provided, and the patient isAfrican-Burmese, multiply by 1.212. If sex is not provided, and thepatient is female, multiply by 0.742. Results for patients <18 years ofage have not been validated by the MDRD study and should be interpretedwith caution.eGFR Result Interpretation:eGFR > or=60 is in the Normal RangeeGFR < 60 may mean kidney diseaseeGFR < 15 may mean kidney failureRanges recommended by the National Kidney Foundation,http://nkdep.nih .gov Magnesium, [id number] 07:38:00 Test Item Value Reference Range Comments Magnesium (test code=MG) 2.0 mg/dL 1.7-2.5 CK [id number] 07:31:00 Test Item Value Reference Range Comments CK (test code=CK) 159 U/L 39-308 Lipid [id number] 07:31:00 Test Item Value Reference Range Comments Cholesterol (test 118 mg/dL 0-200 code=CHOL) Triglycerides (test 170 mg/dL 9-200 code=TRIG) HDL (test code=HDL) 49 mg/dL 40-60 Chol/HDL (test 2.4 Ratio 0.0-5.0 code=CHOLPHDL) LDL, Calculated (test 35 0-130 (NOTE)RISK OF HEART code=LDLC) DISEASEPublished by Burmese Heart AssociationAnalyte Optimal Boderline Increased RiskCHOL <200 200-239 >240TRIG <150 150-199 >200HDL Male: >60 <40HDL Female: >60 <50LDL <100 130-159 >160LDL NEAR OPTIMAL IS 100-129 VLDL (test code=VLDL) 34 mg/dL 5-40 LDL/HDL (test code=LDLPHDL) 1 Glycosylated [id number] 07:24:00 Test Item Value Reference Range Comments HBA1c (test code=HBA1C) 5.0 % 4.8-5.9 CBC with Rreoeojwfkps9896-09-40 07:20:00 Test Item Value Reference Range Comments [...] Lymph Abs (test code=ALYMPH) 0.8 K/cumm 0.5-4.6 [place] Abs (test code=AMONO) 0.5 K/cumm 0.0-1.2 Eos Abs (test code=AEOS) 0.10 K/cumm 0.00-0.74 Baso Abs (test code=ABASO) 0.0 K/cumm 0.00-0.21 POC Glucose, [id number] 07:03:00 Test Item Value Reference Range Comments POC Glucose (test 147 mg/dL 70-115 If you consider your patient code=POCGLUC) critically ill, the [place]eline Accu-Chek InformII metershould not be used for Glucose determinations.Draw a venous Glucose and send to the Main Lab for Analysis. POC Glucose, [id number] 22:05:00 Test Item Value Reference Range Comments POC Glucose (test 134 mg/dL 70-115 If you consider your patient code=POCGLUC) critically ill, the [place]eline Accu-Chek InformII metershould not be used for Glucose determinations.Draw a venous Glucose and send to the Main Lab for Analysis. Blood Gas+Lytes+Glu+Ca+Hgb+Hct+[id number] 18:31:00 Test Item Value Reference Range Comments [...] Celcius code=PTTEMP) Comment (test code=COMMENT) [email or web address] Puncture Site (test code=PUNSITE) Radial. R Drawing Tech ID (test medel fi code=DRAWTECH) iPAP (test code=IPAP) 0 cmH2O Respiratory Rate (test code=RESP 0 RATE) Lactic Acid, Blood Gas (test 0.4 mmol/L code=BGLA) CT CHEST W/O [id number] 16:48:03CT CHEST W/O CONTRASTLOCATION CODE: R16 HISTORY: [...] bilateral axillary, prevascular, andparatracheal lymph nodes.Influenza B [id number] 14:36:00Specimen: NasalCollected: 09/24/2017 14:04 Status: Final Last [...] Culture of negative samples is recommended.Influenza A [id number] 14:34:00Specimen: NasalCollected: 09/24/2017 14:04 Status: Final Last [...] Culture of negative samples is recommended.Comprehensive Metabolic [id number] 13:54:00 Test Item Value Reference Range Comments [...] race is not provided, and the patient isAfrican-Burmese, multiply by 1.212. If sex is not provided, and thepatient is female, multiply by 0.742. Results for patients <18 years ofage have not been validated by the MDRD study and should be interpretedwith caution.eGFR Result Interpretation:eGFR > or=60 is in the Normal RangeeGFR < 60 may mean kidney diseaseeGFR < 15 may mean kidney failureRanges recommended by the National Kidney Foundation,http://nkdep.nih .gov Troponin [id number] 13:54:00 Test Item Value Reference Range Comments Troponin T (test code=MADHAV) 0.124 ng/mL 0.000-0.090 Upt-[id number] 13:54:00 Test Item Value Reference Range Comments NT ProBnp (test code=PBNP) >33570 pg/mL 0-124 CK [id number] 13:54:00 Test Item Value Reference Range Comments CK (test code=CK) 222 U/L 39-308 CKMB (test code=CKMB) 3.1 ng/mL 0.0-4.9 CKMB% (test code=CKMBP) 1.4 % 0.0-3.4 CK [id number] 13:54:00 Test Item Value Reference Range Comments CK (test code=CK) 222 U/L 39-308 Partial Thromboplastin [id number] 13:43:00 Test Item Value Reference Range Comments aPTT (test code=PTT) 35.70 seconds 24.39-37.25 Prothrombin [id number] 13:43:00 Test Item Value Reference Range Comments PT (test code=PT) 11.30 seconds 9.78-13.35 INR (test code=INR) 0.99 Ratio 0.6-1.2 Lactic Acid [id number] 13:41:00 Test Item Value Reference Range Comments Lactic Acid, Bld (test code=LAC) 1.3 mmol/L 0.5-1.9 CBC with Ngimfkwbwmib4230-66-70 13:32:00 Test Item Value Reference Range Comments [...] Lymph Abs (test code=ALYMPH) 1.2 K/cumm 0.5-4.6 [place] Abs (test code=AMONO) 0.6 K/cumm 0.0-1.2 Eos Abs (test code=AEOS) 0.23 K/cumm 0.00-0.74 Baso Abs (test code=ABASO) 0.0 K/cumm 0.00-0.21 XR CHEST 1 [id number] 12:50:14XR CHEST 1 VIEWLOCATION: [id number]: None.INDICATION: CoughDISCUSSION:A single portable chest radiograph was [...]
[2018-05-10] MEDS ORDERED: HYDROCODONE/APAP 5/325 MG TAB ONE (12:21)
--- NOTE | 2018-05-10 12:50 | RAD REPORT ---
EXAM DESCRIPTION: RAD - Ankle Right 3 View - 05/10/2018 12:34 pm CLINICAL HISTORY: PAIN COMPARISON: No comparisons FINDINGS: Prominent soft tissue swelling is seen along the lateral malleolus. Vascular calcification is noted. Large plantar calcaneal spur.
--- NOTE | 2018-05-10 13:43 | ER ---
Nurse's Notes [facility] Name: Salvatore Goldman Age: 63 yrs Sex: Male : 1955 Arrival Date: 05/10/2018 Time: 11:05 Bed 18 Private MD: Diagnosis: Sprain of ankle Presentation: 05/10 11:27 Presenting complaint: Patient states: RIGHT ankle pain s/p slipping off wet step this sr5 AM. Denies head/neck injury. Reports "shooting" pain from ankle up into RIGHT lower leg. "Can't walk on it". Transition of care: patient was not received from another setting of care. Onset of symptoms was May 10, 2018. Care prior to arrival: None. 11:27 Method Of Arrival: Wheelchair sr5 11:27 Acuity: NARDA 4 sr5 12:48 Risk Assessment: Do you want to hurt yourself or someone else? Patient reports no em desire to harm self or others. Initial Sepsis Screen: Does the patient meet any 2 criteria? No. Patient's initial sepsis screen is negative. Does the patient have a suspected source of infection? No. Patient's initial sepsis screen is negative. Triage Assessment: 11:30 General: Appears uncomfortable, Behavior is calm, cooperative. Pain: Complains of pain sr5 in right ankle and anterior aspect of right ankle Pain currently is 8 out of 10 on a pain scale. Quality of pain is described as shooting. Neuro: No deficits noted. Cardiovascular: No deficits noted. Respiratory: No deficits noted. Musculoskeletal: Reports pain in right leg. Historical: - Allergies: 11:30 codeine sulfate; sr5 - PMHx: 11:30 Cirrhosis; Diabetes - NIDDM; Dialysis; Hepatitis; HIV; Hyperlipidemia; Karposi Sarcoma sr5 (left leg); kidney failure; heart valve; - PSHx: 11:30 Dialysis Fistula (left Arm); Heart Surgery; valve replacement; sr5 - Immunization history:: Adult Immunizations up to date. - Social history:: Smoking status: unknown. - Ebola Screening: : Patient negative for fever greater than or equal to 101.5 degrees Fahrenheit, and additional compatible Ebola Virus Disease symptoms Patient denies exposure to infectious person Patient denies travel to an Ebola-affected area in the 21 days before illness onset No symptoms or risks identified at this time. Screenin:47 Abuse screen: Denies threats or abuse. Nutritional screening: No deficits noted. em Tuberculosis screening: No symptoms or risk factors identified. Fall Risk None identified. Assessment: 11:45 General: Appears in no apparent distress. uncomfortable, Behavior is calm, cooperative. em Pain: Complains of pain in right ankle Pain currently is 8 out of 10 on a pain scale. Neuro: Level of Consciousness is awake, alert, obeys commands, Oriented to person, place, time, situation. Cardiovascular: Capillary refill < 3 seconds Patient's skin is warm and dry. Respiratory: Airway is patent Respiratory effort is even, unlabored, Respiratory pattern is regular, symmetrical. GI: Abdomen is flat. : No signs and/or symptoms were reported regarding the genitourinary system. EENT: No signs and/or symptoms were reported regarding the EENT system. Derm: Skin is intact, Skin is pink, warm \\T\\ dry. Musculoskeletal: Range of motion: limited in right ankle Swelling present in right ankle. Injury Description: slip injury. 12:00 Reassessment: Patient appears in no apparent distress at this time. I agree with above iw assessment by Jose Caban LVN. 13:02 Reassessment: Patient appears in no apparent distress at this time. Patient and/or em family updated on plan of care and expected duration. Pain level reassessed. Patient is alert, oriented x 3, equal unlabored respirations, skin warm/dry/pink. Patient states feeling better. 14:08 Reassessment: Patient appears in no apparent distress at this time. Patient and/or em family updated on plan of care and expected duration. Pain level reassessed. Patient is alert, oriented x 3, equal unlabored respirations, skin warm/dry/pink. Patient states feeling better. Vital Signs: 11:30 BP 133 / 81; Pulse 100; Resp 16; Temp 99.3; Pulse Ox 98% ; Weight 72.57 kg (R); Height sr5 5 ft. 7 in. (170.18 cm); Pain 8/10; 13:00 BP 135 / 71; Pulse 79; Resp 18; Pulse Ox 100% on R/A; Pain 4/10; em 14:09 BP 128 / 76; Pulse 88; Resp 18; Pulse Ox 98% on R/A; Pain 4/10; em 11:30 Body Mass Index 25.06 (72.57 kg, 170.18 cm) 5 ED Course: 11:05 Patient arrived in ED. as 11:29 Triage completed. sr5 11:29 [facility]C [facility]. kb 11:29 Manuel Montgomery MD is Attending Physician. kb 11:30 Arm band placed on. sr5 11:48 Jose Caban LVN is Primary Nurse. em 12:33 Ankle Right 3 View XRAY In Process Unspecified. EDMS 12:33 X-ray completed. Portable x-ray completed in exam room. Patient tolerated procedure la2 well. 12:47 Patient has correct armband on for positive identification. Placed in gown. Bed in low em position. Call light in reach. Side rails up X2. Adult w/ patient. 12:47 No provider procedures requiring assistance completed. em 14:09 Patient did not have IV access during this emergency room visit. em 14:11 Crutch training done. Air stirrup applied to right ankle. em Administered Medications: 12:18 Drug: [place] 5 mg-325 mg 1 tabs Route: PO; em 13:10 Follow up: Response: No adverse reaction; Pain is decreased em Outcome: 13:42 Discharge ordered by MD. kb 14:09 Discharged to home via wheelchair. em 14:09 Condition: good 14:09 Discharge instructions given to patient, family, Instructed on discharge instructions, follow up and referral plans. medication usage, Demonstrated understanding of instructions, follow-up care, medications, Prescriptions given X 1. 14:12 Patient left the ED. em Signatures: Dispatcher [employer] EDMS Felipa Brown FNP-C FNP-Joes Norton LVN LVN em Angely Merchant Irene, RN RN Srinivas Carmen RN RN sr5 Hina Mcgrath la2
--- NOTE | 2018-05-10 13:43 | EDPHYS ---
Physician Documentation [facility] Name: Salvatore Goldman Age: 63 yrs Sex: Male : 1955 Arrival Date: 05/10/2018 Time: 11:05 Bed 18 Private MD: ED Physician Manuel Montgomery HPI: 05/10 13:38 This 63 yrs old Black Male presents to ER via Wheelchair with complaints of Ankle kb Injury. 13:38 The patient presents with an injury, pain, that is acute, swelling, tenderness. The kb complaints affect the right ankle. Onset: The symptoms/episode began/occurred this morning. Context: The problem was sustained at home, resulted from slipped on wet step, The patient can partially bear weight on the affected extremity. the patient is able to ambulate. Associated signs and symptoms: Pertinent positives: swelling, Pertinent negatives: calf tenderness, fever, nausea, numbness, rash, tingling, vomiting, warmth, weakness. Modifying factors: The symptoms are alleviated by nothing, the symptoms are aggravated by weight bearing, movement. Severity of symptoms: At their worst the symptoms were moderate, in the emergency department the symptoms are unchanged. The patient has not experienced similar symptoms in the past. The patient has not recently seen a physician. Pt states he walked out of his front door and forgot his phone so he turned around real quick and slipped because it was wet. Historical: - Allergies: 11:30 codeine sulfate; sr5 - PMHx: 11:30 Cirrhosis; Diabetes - NIDDM; Dialysis; Hepatitis; HIV; Hyperlipidemia; Karposi Sarcoma sr5 (left leg); kidney failure; heart valve; - PSHx: 11:30 Dialysis Fistula (left Arm); Heart Surgery; valve replacement; sr5 - Immunization history:: Adult Immunizations up to date. - Social history:: Smoking status: unknown. - Ebola Screening: : Patient negative for fever greater than or equal to 101.5 degrees Fahrenheit, and additional compatible Ebola Virus Disease symptoms Patient denies exposure to infectious person Patient denies travel to an Ebola-affected area in the 21 days before illness onset No symptoms or risks identified at this time. ROS: 13:38 Constitutional: Negative for fever, chills, and weight loss, Cardiovascular: Negative kb for chest pain, palpitations, and edema, Respiratory: Negative for shortness of breath, cough, wheezing, and pleuritic chest pain, Abdomen/GI: Negative for abdominal pain, nausea, vomiting, diarrhea, and constipation, Skin: Negative for injury, rash, and discoloration, Neuro: Negative for headache, weakness, numbness, tingling, and seizure. 13:38 MS/extremity: Positive for injury or acute deformity, pain, swelling, tenderness, of the right ankle. Exam: 13:38 Constitutional: This is a well developed, well nourished patient who is awake, alert, kb and in no acute distress. Head/Face: Normocephalic, atraumatic. Chest/axilla: Normal chest wall appearance and motion. Nontender with no deformity. No lesions are appreciated. Cardiovascular: Regular rate and rhythm with a normal S1 and S2. No gallops, murmurs, or rubs. Normal PMI, no JVD. No pulse deficits. Respiratory: Lungs have equal breath sounds bilaterally, clear to auscultation and percussion. No rales, rhonchi or wheezes noted. No increased work of breathing, no retractions or nasal flaring. Abdomen/GI: Soft, non-tender, with normal bowel sounds. No distension or tympany. No guarding or rebound. No evidence of tenderness throughout. Skin: Warm, dry with normal turgor. Normal color with no rashes, no lesions, and no evidence of cellulitis. Neuro: Awake and alert, GCS 15, oriented to person, place, time, and situation. Cranial nerves II-XII grossly intact. Motor strength 5/5 in all extremities. Sensory grossly intact. Cerebellar exam normal. Normal gait. 13:38 Musculoskeletal/extremity: Extremities: grossly normal except: noted in the right ankle: pain, swelling, tenderness, ROM: intact in all extremities, limited active range of motion due to pain, in the right ankle, Circulation is intact in all extremities. Sensation intact. Weight bearing: can bear weight with assistance only. Vital Signs: 11:30 BP 133 / 81; Pulse 100; Resp 16; Temp 99.3; Pulse Ox 98% ; Weight 72.57 kg (R); Height sr5 5 ft. 7 in. (170.18 cm); Pain 8/10; 13:00 BP 135 / 71; Pulse 79; Resp 18; Pulse Ox 100% on R/A; Pain 4/10; em 14:09 BP 128 / 76; Pulse 88; Resp 18; Pulse Ox 98% on R/A; Pain 4/10; em 11:30 Body Mass Index 25.06 (72.57 kg, 170.18 cm) sr5 MDM: 11:39 Patient medically screened. kb 13:38 Data reviewed: vital signs, nurses notes. Data interpreted: Pulse oximetry: on room air kb is 98 %. Interpretation: normal. Counseling: I had a detailed discussion with the patient and/or guardian regarding: the historical points, exam findings, and any diagnostic results supporting the discharge/admit diagnosis, radiology results, the need for outpatient follow up, a family practitioner, to return to the emergency department if symptoms worsen or persist or if there are any questions or concerns that arise at home. 05/10 11:42 Order name: Ankle Right 3 View XRAY; Complete Time: 12:55 kb 05/10 12:58 Order name: Aircast Ankle Splint; Complete Time: 14:08 kb Administered Medications: 12:18 Drug: [place] 5 mg-325 mg 1 tabs Route: PO; em 13:10 Follow up: Response: No adverse reaction; Pain is decreased em Disposition: 18:22 Co-signature as Attending Physician, Manuel Montgomery MD. rn Disposition: 05/10/18 13:42 Discharged to Home. Impression: Sprain of ankle. - Condition is Stable. - Discharge Instructions: Ankle Sprain, [id number]. - Prescriptions for Diclofenac Sodium 75 mg Oral Tablet, Delayed Release (E.C.) - take 1 tablet by ORAL route 2 times per day As needed; 30 tablet. - Medication Reconciliation Form, Thank You Letter, Antibiotic Education, Prescription Opioid Use form. - Follow up: Emergency Department; When: As needed; Reason: Worsening of condition. Follow up: Private Physician; When: 2 - 3 days; Reason: Recheck today's complaints, Continuance of care, Re-evaluation by your physician. Signatures: Dispatcher [employer] Felipa Bonilla, AYDEE CARDIOPULMONARY TECHNOLOGIST CHIEF-Jose Norton, SCHEDULER SCHEDULER em Manuel Montgomery MD MD rn Resecker, Srinivas RN RN sr5 Corrections: (The following items were deleted from the chart) 14:12 13:42 05/10/2018 13:42 Discharged to Home. Impression: Sprain of ankle. Condition is em Stable. Forms are Medication Reconciliation Form, Thank You Letter, Antibiotic Education, Prescription Opioid Use. Follow up: Emergency Department; When: As needed; Reason: Worsening of condition. Follow up: Private Physician; When: 2 - 3 days; Reason: Recheck today's complaints, Continuance of care, Re-evaluation by your physician. kb
== END 2018-05-10 14:12 | disposition home or self-care (01) ==
LOC: ER 11:04
DX: S93.401A Sprain of unspecified ligament of right ankle, initial encounter (principal); W10.8XXA Fall (on) (from) other stairs and steps, initial encounter; Y92.009 Unspecified place in unspecified non-institutional (private) residence as the place of occurrence of the external cause; Z88.5 Allergy status to narcotic agent; E78.5 Hyperlipidemia, unspecified; B20 Human immunodeficiency virus [HIV] disease; Z95.2 Presence of prosthetic heart valve; E11.22 Type 2 diabetes mellitus with diabetic chronic kidney disease; N18.9 Chronic kidney disease, unspecified
CPT/HCPCS: 99284

== ENCOUNTER 2018-05-16 19:37 | Inpatient (IN) | payer OTHER ==
--- OUTSIDE RECORDS SUMMARY | 2018-05-16 19:40 | XMS REPORT ---
:1955 Author Organization [facility] Address Unavailable , Allergies, Adverse Reactions, Alerts Allergy Name Reaction Description Start Date Severity Status Provider No Known Allergies Julieta Hamilton Conditions or Problems Problem Name Problem Onset Status Entry Provider Comment Standard Annotate Code Date Date Description Diabetes 250.00 Active [place] Diabetes mellitus mellitus, type 12/02 12/02 Benjamin ÉPREZ without mention II of complication, type II [...] Patient Date Date Name Instruction AMLODIPINE AMLODIPINE 43302603346 Active Mo Active BESYLATE 10 MG BESYLATE Dicks OD ORAL TABLET CALCIUM ACETATE CALCIUM ACETATE 18310905437 Active Mo Active (PHOS BINDER) (PHOS BINDER) Dicks OD 667 MG ORAL CAPSULE CRESTOR 5 MG ROSUVASTATIN 34433062252 Active Mo Active ORAL TABLET CALCIUM Dicks OD EPIVIR SOLUTION LAMIVUDINE SOLN 23681231555 Active Mo Active Dicks OD ISENTRESS RALTEGRAVIR 93612221424 Active Mo Active TABLET POTASSIUM TABS Dicks OD KALETRA TABLET LOPINAVIR-RITONAVI 34588436919 Active Mo Active R TABS Dicks OD LAMIVUDINE LAMIVUDINE TABS 46192954110 Active Mo Active TABLET Dicks OD PROAIR HFA ALBUTEROL SULFATE 39422562330 Active Mo Active AEROSOL AERS Dicks OD SOLUTION PEDRO-EAMON RX B-COMPLEX W/ C & 70608840272 Active Mo Active TABLET FOLIC ACID TABS Dicks OD VITAMIN D2 ERGOCALCIFEROL 33019479485 Active Mo Active TABLET TABS Dicks OD Diagnostic Results Date Name Value Unit Range Description Append: Eye Exam - Hematology T-helper cells (CD4) count 602 uL Append: Eye Exam - Serology HIV-1RNA, serum, by PCR, quantitative 20 {Copies}/mL Procedures Code Procedure Name Date Entry Date Standard Description CPT-18183 Dispensing Visit (UNLIVSTED OPHTHALMOLOGICAL 10:14:39 CDT SERVICE/PROCEDURE) CPT-88221 Est Patient Comprehensive Opt - 37156 15:29:32 CDT CPT-42674 New Patient Intermediate Opt - 90857 14:28:41 CDT
--- OUTSIDE RECORDS SUMMARY | 2018-05-16 19:40 | XMS REPORT ---
:1955 [facility] [address] [place] [address] Care Team Providers Name Role Phone UNKNOWN, [...] Facility Department ID 2017-11-18 2017-11-20 [id number] 13:43:00 13:54:00 MAYLIN 2017-11-07 2017-11-07 Emergency E [facility] [id number] 20:22:00 20:22:00 2017-10-06 2017-10-06 [facility] [id number] 14:25:00 14:25:00 NEEL Results Test Description Test Time Test Comments Text Results Atomic Results Result Comments CD4/CD8 Ratio Profile 2017-11-27 08:04:00 Test Item Value Reference Range Comments Absolute CD 4 [place] (test next=567471) 188 /uL 359-1519 % CD 4 Pos. Lymph. (test wzer=942636) 37.6 % 30.8-58.5 Abs. CD 8 Suppressor (test mgau=314446) 183 /uL 109-897 % CD 8 Pos. Lymph. (test orsq=848582) 36.6 % 12.0-35.5 CD4/CD8 Ratio (test flsp=229903) 1.03 0.92-3.72 WBC (test xnhf=549851) 5.0 x10E3/uL 3.4-10.8 RBC (test watg=889198) 3.00 x10E6/uL 4.14-5.80 Hemoglobin (test wozg=952057) 9.6 g/dL 13.0-17.7 Hematocrit (test cgtx=658115) 27.6 % 37.5-51.0 MCV (test uxav=337985) 92 fL 79-97 MCH (test jrvg=021487) 32.0 pg 26.6-33.0 MCHC (test oavb=643660) 34.8 g/dL 31.5-35.7 RDW (test bqqd=188663) 15.5 % 12.3-15.4 Platelets (test iibg=699959) 113 x10E3/uL 150-379 Neutrophils (test hzuk=905313) 84 % Not Estab. Lymphs (test kocq=610093) 9 % Not Estab. Monocytes (test ovsc=207354) 6 % Not Estab. Eos (test fytu=685536) 1 % Not Estab. Basos (test apvf=584134) 0 % Not Estab. Neutrophils (Absolute) (test vkds=728854) 4.2 x10E3/uL 1.4-7.0 Lymphs (Absolute) (test isyl=500942) 0.5 x10E3/uL 0.7-3.1 Monocytes(Absolute) (test drhl=224386) 0.3 x10E3/uL 0.1-0.9 Eos (Absolute) (test rgox=346899) 0.0 x10E3/uL 0.0-0.4 Baso (Absolute) (test acsm=702217) 0.0 x10E3/uL 0.0-0.2 Immature Granulocytes (test mnfb=864282) 0 % Not Estab. Immature Grans (Abs) (test mhpf=508137) 0.0 x10E3/uL 0.0-0.1 Culture, Blood [id number] 08:42:00Specimen: BloodCollected: 11/19/2017 00 :21 Status: Final Last Updated: 11/24/2017 08:42 Culture Result (Final) ( Final) No Growth After 5 DaysCulture, Blood [id number] 08:42: 00Specimen: BloodCollected: 11/18/2017 20:30 Status: Final Last Updated: 08:42 Culture Result (Final) (Final) No Growth After 5 DaysPOC Glucose, [id number] 11:51:00 Test Item Value Reference Range Comments POC Glucose (test 148 mg/dL 70-115 Notify RN or MDIf you consider code=POCGLUC) your patient critically ill, the [facility] Accu-Chek InformII metershould not be used for Glucose determinations.Draw a venous Glucose and send to the Main Lab for Analysis. CK [id number] 07:42:00 Test Item Value Reference Range Comments CK (test code=CK) na U/L 39-308 CKMB (test code=CKMB) 4.0 ng/mL 0.0-4.9 CKMB% (test code=CKMBP) 0.0 % 0.0-3.4 Qzz-[id number] 07:39:00 Test Item Value Reference Range Comments NT ProBnp (test code=PBNP) >40111 pg/mL 0-124 Troponin [id number] 07:18:00 Test Item Value Reference Range Comments Troponin T (test code=MADHAV) 0.103 ng/mL 0.000-0.090 Lactate Sjuidtgrukjhu4632-53-58 07:18:00 Test Item Value Reference Range Comments LDH (test code=LDH) 271 U/L 135-225 POC Glucose, [id number] 06:50:00 Test Item Value Reference Range Comments POC Glucose (test 154 mg/dL 70-115 Notify RN or MDIf you consider code=POCGLUC) your patient critically ill, the [place] Accu-Chek InformII metershould not be used for Glucose determinations.Draw a venous Glucose and send to the Main Lab for Analysis. CK [id number] 01:08:00 Test Item Value Reference Range Comments CK (test code=CK) na U/L 39-308 CKMB (test code=CKMB) 3.6 ng/mL 0.0-4.9 CKMB% (test code=CKMBP) 0.0 % 0.0-3.4 Troponin [id number] 01:08:00 Test Item Value Reference Range Comments Troponin T (test code=MADHAV) 0.106 ng/mL 0.000-0.090 XR CHEST 1 [id number] 21:02:01CLINICAL INFORMATION: Vascular congestion.Dictation Location: R 16Comparison: 11/18/2017 showed perihilar and lower lobe opacities. Technique: Portable AP 1951 hoursFINDINGS: Monitoring electrodes overlie the chest wall. Cardiomegaly withincreasing central vascular interstitial prominence with bibasilaropacities and effusions. No interval bone changes.IMPRESSION: Changes could indicate worsening cardiac decompensation orfluid overload.POC Glucose, [id number] 20:15:00 Test Item Value Reference Range Comments POC Glucose (test 139 mg/dL 70-115 If you consider your patient code=POCGLUC) critically ill, the [place] Accu-Chek InformII metershould not be used for Glucose determinations.Draw a venous Glucose and send to the Main Lab for Analysis. POC Glucose, [id number] 16:52:00 Test Item Value Reference Range Comments POC Glucose (test 123 mg/dL 70-115 If you consider your patient code=POCGLUC) critically ill, the [place] Accu-Chek InformII metershould not be used for Glucose determinations.Draw a venous Glucose and send to the Main Lab for Analysis. POC Glucose, [id number] 12:04:00 Test Item Value Reference Range Comments POC Glucose (test 140 mg/dL 70-115 If you consider your patient code=POCGLUC) critically ill, the [place] Accu-Chek InformII metershould not be used for Glucose determinations.Draw a venous Glucose and send to the Main Lab for Analysis. POC Glucose, [id number] 08:01:00 Test Item Value Reference Range Comments POC Glucose (test 126 mg/dL 70-115 If you consider your patient code=POCGLUC) critically ill, the [place]eline Accu-Chek InformII metershould not be used for Glucose determinations.Draw a venous Glucose and send to the Main Lab for Analysis. CK [id number] 06:03:00 Test Item Value Reference Range Comments CK (test code=CK) na U/L 39-308 CKMB (test code=CKMB) 2.8 ng/mL 0.0-4.9 CKMB% (test code=CKMBP) 0.0 % 0.0-3.4 Basic Metabolic [id number] 05:51:00 Test Item Value Reference Range Comments [...] race is not provided, and the patient isAfrican-Polish, multiply by 1.212. If sex is not provided, and thepatient is female, multiply by 0.742. Results for patients <18 years ofage have not been validated by the MDRD study and should be interpretedwith caution.eGFR Result Interpretation:eGFR > or=60 is in the Normal RangeeGFR < 60 may mean kidney diseaseeGFR < 15 may mean kidney failureRanges recommended by the National Kidney Foundation,http://nkdep.nih .gov Magnesium, [id number] 05:51:00 Test Item Value Reference Range Comments Magnesium (test code=MG) 1.9 mg/dL 1.7-2.5 Ptnsyvppwe3465-66-71 05:51:00 Test Item Value Reference Range Comments Phosphorus (test code=PO4) 3.8 mg/dL 2.70-4.50 Whq-[id number] 05:51:00 Test Item Value Reference Range Comments NT ProBnp (test code=PBNP) >63367 pg/mL 0-124 Troponin [id number] 05:51:00 Test Item Value Reference Range Comments Troponin T (test code=MADHAV) 0.126 ng/mL 0.000-0.090 CBC with [id number] 05:34:00 Test Item Value Reference Range Comments [...] Lymph Abs (test code=ALYMPH) 0.4 K/cumm 0.5-4.6 [place] Abs (test code=AMONO) 0.6 K/cumm 0.0-1.2 Eos Abs (test code=AEOS) 0.13 K/cumm 0.00-0.74 Baso Abs (test code=ABASO) 0.0 K/cumm 0.00-0.21 CK [id number] 18:39:00 Test Item Value Reference Range Comments CK (test code=CK) HIDE U/L 39-308 CKMB (test code=CKMB) 3.2 ng/mL 0.0-4.9 CKMB% (test code=CKMBP) HIDE % 0.0-3.4 Troponin [id number] 18:39:00 Test Item Value Reference Range Comments Troponin T (test code=MADHAV) 0.126 ng/mL 0.000-0.090 Hep B Surface [id number] 18:39:00 Test Item Value Reference Range Comments Hep Bs Ag (test code=HBSAG) Nonreactive Non-Reactive POC Glucose, [id number] 16:47:00 Test Item Value Reference Range Comments POC Glucose (test 143 mg/dL 70-115 If you consider your patient code=POCGLUC) critically ill, the [place] Accu-Chek InformII metershould not be used for Glucose determinations.Draw a venous Glucose and send to the Main Lab for Analysis. XR CHEST 1 [id number] 08:18:18EXAM: Portable AP chest x-rayLOCATION: R16 INDICATION: CoughCOMPARISON: 11/07/2017FINDINGS:The cardiacsilhouette is stable enlargement. There are increasinginterstitial opacities, most evident in the perihilar regions and lowerlobes. There is blunting of the costophrenic angles bilaterally. Thereis no discernible pneumothorax.IMPRESSION:Increasing perihilar and bilateral lower lobe opacities compared to theprior exam dated 11/07. Findings may represent pulmonary edema orpneumonia in the appropriate clinical setting.Comprehensive Metabolic [id number] 08:05:00 Test Item Value Reference Range Comments [...] race is not provided, and the patient isAfrican-Polish, multiply by 1.212. If sex is not provided, and thepatient is female, multiply by 0.742. Results for patients <18 years ofage have not been validated by the MDRD study and should be interpretedwith caution.eGFR Result Interpretation:eGFR > or=60 is in the Normal RangeeGFR < 60 may mean kidney diseaseeGFR < 15 may mean kidney failureRanges recommended by the National Kidney Foundation,http://nkdep.nih .gov CK Ourbb8291-04-16 08:05:00 Test Item Value Reference Range Comments CK (test code=CK) 149 U/L 39-308 Troponin [id number] 08:02:00 Test Item Value Reference Range Comments Troponin T (test code=MADHAV) 0.114 ng/mL 0.000-0.090 Cql-[id number] 08:02:00 Test Item Value Reference Range Comments NT ProBnp (test code=PBNP) >51143 pg/mL 0-124 CBC with Fqchxllzwscx2054-03-47 07:53:00 Test Item Value Reference Range Comments [...] Lymph Abs (test code=ALYMPH) 0.9 K/cumm 0.5-4.6 [place] Abs (test code=AMONO) 0.4 K/cumm 0.0-1.2 Eos Abs (test code=AEOS) 0.11 K/cumm 0.00-0.74 Baso Abs (test code=ABASO) 0.0 K/cumm 0.00-0.21 XR CHEST 1 [id number] 21:38:09EXAM: CHEST ONE VIEWINDICATION: CoughCOMPARISON: October 06, 2017TECHNIQUE: AP view of the chest.FINDINGS: The cardiomediastinal silhouette is unchanged. Mild congestive changesbilaterally. No pneumothorax or pleural effusion is identified. Theosseous structures are unremarkable.IMPRESSION: Diffuse congestive changes bilaterally.LOCATION: R16US DUPLX EXT VEINS COMPRXavier, [id number] 20:09:34AFTER HOURS SERVICE ON: 10/06/2017 8: 09 PMRIGHT Lower Extremity Venous Duplex Doppler ExaminationLocation Code B58Rbwhrzy: SwellingTechnique: Real-time castillo scale, Doppler spectral analysis [...] imaged vessels.AFTER HOURS SERVICE ON: 10/06/2017 8:09 [facility] Extremity Venous Duplex Doppler ExaminationLocation Code S40Fhhvhel : SwellingTechnique: Real-time castillo scale, Doppler spectral [...] of DVT in the imaged vessels.Comprehensive Metabolic [id number] 17 :40:00 Test Item Value Reference Range [...] race is not provided, and the patient isAfrican-Polish, multiply by 1.212. If sex is not [...] the National Kidney Foundation,http://nkdep.nih .gov CBC with [id number] 17:15:00 Test Item Value Reference Range Comments [...] Lymph Abs (test code=ALYMPH) 1.3 K/cumm 0.5-4.6 [place] Abs (test code=AMONO) 0.6 K/cumm 0.0-1.2 Eos Abs (test code=AEOS) 0.12 K/cumm 0.00-0.74 Baso Abs (test code=ABASO) 0.0 K/cumm 0.00-0.21 XR CHEST 1 [id number] 16:56:42CHEST 1 VIEW: [id number]: coughCOMPARISON: Sep 24, 2017FINDINGS:The heart is enlarged. There is engorgement of the central pulmonaryvasculature. There are patchy bibasilar areas of infiltrate oratelectasis with bilateral effusions. No pneumothorax is present. IMPRESSION: 1. Patchy areas of atelectasis or infiltrate in the lung bases withsmall bilateral effusions and vascular congestion most likely secondaryto CHF.Culture, Blood [id number] 14:58:00Specimen: BloodCollected: 2017 13:05 Status: Final Last Updated: 09/29/2017 14:58 (1) ER Bed 1 Culture Result (Final) (Final) No Growth After 5 DaysCulture, Blood [id number] 14:58:00Specimen: BloodCollected: 09/24/2017 12:50 Status: Final Last Updated: 09/29/2017 14:58 (1) ER Bed 1 Culture Result (Final) (Final) No Growth After 5 DaysPOC Glucose, [id number] 10:54:00 Test Item Value Reference Range Comments POC Glucose (test 168 mg/dL 70-115 If you consider your patient code=POCGLUC) critically ill, the [facility] Accu-Chek InformII metershould not be used for Glucose determinations.Draw a venous Glucose and send to the Main Lab for Analysis. POC Glucose, [id number] 07:16:00 Test Item Value Reference Range Comments POC Glucose (test 143 mg/dL 70-115 If you consider your patient code=POCGLUC) critically ill, the [place] Accu-Chek InformII metershould not be used for Glucose determinations.Draw a venous Glucose and send to the Main Lab for Analysis. CBC with [id number] 07:15:00 Test Item Value Reference Range Comments [...] Lymph Abs (test code=ALYMPH) 1.3 K/cumm 0.5-4.6 [place] Abs (test code=AMONO) 0.7 K/cumm 0.0-1.2 Eos Abs (test code=AEOS) 0.07 K/cumm 0.00-0.74 Baso Abs (test code=ABASO) 0.0 K/cumm 0.00-0.21 Magnesium, [id number] 07:03:00 Test Item Value Reference Range Comments Magnesium (test code=MG) 2.0 mg/dL 1.7-2.5 Basic Metabolic [id number] 07:03:00 Test Item Value Reference Range Comments [...] race is not provided, and the patient isAfrican-Polish, multiply by 1.212. If sex is not [...] the National Kidney Foundation,http://nkdep.nih .gov POC Glucose, [id number] 21:40:00 Test Item Value Reference Range Comments POC Glucose (test 129 mg/dL 70-115 If you consider your patient code=POCGLUC) critically ill, the [facility] Accu-Chek InformII metershould not be used for Glucose determinations.Draw a venous Glucose and send to the Main Lab for Analysis. Hep B Surface [id number] 18:36:00 Test Item Value Reference Range Comments Hep Bs Ag (test code=HBSAG) Nonreactive Non-Reactive POC Glucose, [id number] 10:51:00 Test Item Value Reference Range Comments POC Glucose (test 216 mg/dL 70-115 If you consider your patient code=POCGLUC) critically ill, the [place] Accu-Chek InformII metershould not be used for Glucose determinations.Draw a venous Glucose and send to the Main Lab for Analysis. POC Glucose, [id number] 07:57:00 Test Item Value Reference Range Comments POC Glucose (test 164 mg/dL 70-115 If you consider your patient code=POCGLUC) critically ill, the [place] Accu-Chek InformII metershould not be used for Glucose determinations.Draw a venous Glucose and send to the Main Lab for Analysis. POC Glucose, [id number] 19:47:00 Test Item Value Reference Range Comments POC Glucose (test 140 mg/dL 70-115 Notify RN or MDIf you consider code=POCGLUC) your patient critically ill, the [facility] Accu-Chek InformII metershould not be used for Glucose determinations.Draw a venous Glucose and send to the Main Lab for Analysis. Troponin [id number] 19:36:00 Test Item Value Reference Range Comments Troponin T (test code=MADHAV) 0.121 ng/mL 0.000-0.090 CK [id number] 19:25:00 Test Item Value Reference Range Comments CK (test code=CK) 160 U/L 39-308 The value HIDE originally released by [employer] on 09/25/2017 19:12 waschanged to 160 by [employer] on 09/25/2017 19:24 CKMB (test code=CKMB) 3.0 ng/mL 0.0-4.9 CKMB% (test code=CKMBP) 1.9 % 0.0-3.4 The value HIDE originally released by [employer] on 09/25/2017 19:12 waschanged to 1.9 by [employer] on 09/25/2017 19:24 POC Glucose, [id number] 16:42:00 Test Item Value Reference Range Comments POC Glucose (test 123 mg/dL 70-115 If you consider your patient code=POCGLUC) critically ill, the [place] Accu-Chek InformII metershould not be used for Glucose determinations.Draw a venous Glucose and send to the Main Lab for Analysis. POC Glucose, [id number] 12:09:00 Test Item Value Reference Range Comments POC Glucose (test 141 mg/dL 70-115 If you consider your patient code=POCGLUC) critically ill, the [facility]eline Accu-Chek InformII metershould not be used for Glucose determinations.Draw a venous Glucose and send to the Main Lab for Analysis. Hep B Surface [id number] 07:59:00 Test Item Value Reference Range Comments Hep Bs Ag (test code=HBSAG) Nonreactive Non-Reactive CK [id number] 07:43:00 Test Item Value Reference Range Comments CK (test code=CK) n/a U/L 39-308 CKMB (test code=CKMB) 2.4 ng/mL 0.0-4.9 CKMB% (test code=CKMBP) 0.0 % 0.0-3.4 Troponin [id number] 07:38:00 Test Item Value Reference Range Comments Troponin T (test code=MADHAV) 0.134 ng/mL 0.000-0.090 Thyroid Stimulating Hormone (TSH)2017-09-25 07:38:00 Test Item Value Reference Range Comments TSH (test code=TSH) 1.10 mIU/mL 0.270-4.200 Bcwkihqcdy5829-07-19 07:38:00 Test Item Value Reference Range Comments Phosphorus (test code=PO4) 3.4 mg/dL 2.70-4.50 Comprehensive Metabolic [id number] 07:38:00 Test Item Value Reference Range Comments [...] race is not provided, and the patient isAfrican-Polish, multiply by 1.212. If sex is not provided, and thepatient is female, multiply by 0.742. Results for patients <18 years ofage have not been validated by the MDRD study and should be interpretedwith caution.eGFR Result Interpretation:eGFR > or=60 is in the Normal RangeeGFR < 60 may mean kidney diseaseeGFR < 15 may mean kidney failureRanges recommended by the National Kidney Foundation,http://nkdep.nih .gov Magnesium, [id number] 07:38:00 Test Item Value Reference Range Comments Magnesium (test code=MG) 2.0 mg/dL 1.7-2.5 CK Oyigf2725-28-07 07:31:00 Test Item Value Reference Range Comments CK (test code=CK) 159 U/L 39-308 Lipid [id number] 07:31:00 Test Item Value Reference Range Comments Cholesterol (test 118 mg/dL 0-200 code=CHOL) Triglycerides (test 170 mg/dL 9-200 code=TRIG) HDL (test code=HDL) 49 mg/dL 40-60 Chol/HDL (test 2.4 Ratio 0.0-5.0 code=CHOLPHDL) LDL, Calculated (test 35 0-130 (NOTE)RISK OF HEART code=LDLC) DISEASEPublished by Polish Heart AssociationAnalyte Optimal Boderline Increased RiskCHOL <200 200-239 >240TRIG <150 150-199 >200HDL Male: >60 <40HDL Female: >60 <50LDL <100 130-159 >160LDL NEAR OPTIMAL IS 100-129 VLDL (test code=VLDL) 34 mg/dL 5-40 LDL/HDL (test code=LDLPHDL) 1 Glycosylated [id number] 07:24:00 Test Item Value Reference Range Comments HBA1c (test code=HBA1C) 5.0 % 4.8-5.9 CBC with [id number] 07:20:00 Test Item Value Reference Range Comments [...] Lymph Abs (test code=ALYMPH) 0.8 K/cumm 0.5-4.6 [place] Abs (test code=AMONO) 0.5 K/cumm 0.0-1.2 Eos Abs (test code=AEOS) 0.10 K/cumm 0.00-0.74 Baso Abs (test code=ABASO) 0.0 K/cumm 0.00-0.21 POC Glucose, [id number] 07:03:00 Test Item Value Reference Range Comments POC Glucose (test 147 mg/dL 70-115 If you consider your patient code=POCGLUC) critically ill, the [place] Accu-Chek InformII metershould not be used for Glucose determinations.Draw a venous Glucose and send to the Main Lab for Analysis. POC Glucose, [id number] 22:05:00 Test Item Value Reference Range Comments POC Glucose (test 134 mg/dL 70-115 If you consider your patient code=POCGLUC) critically ill, the [place] Accu-Chek InformII metershould not be used for Glucose determinations.Draw a venous Glucose and send to the Main Lab for Analysis. Blood Gas+Lytes+Glu+Ca+Hgb+Hct+[id number] 18:31:00 Test Item Value Reference Range Comments [...] Celcius code=PTTEMP) Comment (test code=COMMENT) [email or web address] Puncture Site (test code=PUNSITE) Radial. R Drawing Tech ID (test medel fi code=DRAWTECH) iPAP (test code=IPAP) 0 cmH2O Respiratory Rate (test code=RESP 0 RATE) Lactic Acid, Blood Gas (test 0.4 mmol/L code=BGLA) CT CHEST W/O [id number] 16:48:03CT CHEST W/O CONTRASTLOCATION CODE: R16 HISTORY: [...] bilateral axillary, prevascular, andparatracheal lymph nodes.Influenza B [id number] 14:36:00Specimen: NasalCollected: 09/24/2017 14:04 Status: Final Last [...] Culture of negative samples is recommended.Influenza A [id number] 14:34:00Specimen: NasalCollected: 09/24/2017 14:04 Status: Final Last [...] Culture of negative samples is recommended.Comprehensive Metabolic [id number] 13:54:00 Test Item Value Reference Range Comments [...] race is not provided, and the patient isAfrican-Polish, multiply by 1.212. If sex is not provided, and thepatient is female, multiply by 0.742. Results for patients <18 years ofage have not been validated by the MDRD study and should be interpretedwith caution.eGFR Result Interpretation:eGFR > or=60 is in the Normal RangeeGFR < 60 may mean kidney diseaseeGFR < 15 may mean kidney failureRanges recommended by the National Kidney Foundation,http://nkdep.nih .gov Troponin [id number] 13:54:00 Test Item Value Reference Range Comments Troponin T (test code=MADHAV) 0.124 ng/mL 0.000-0.090 Ico-[id number] 13:54:00 Test Item Value Reference Range Comments NT ProBnp (test code=PBNP) >67513 pg/mL 0-124 CK [id number] 13:54:00 Test Item Value Reference Range Comments CK (test code=CK) 222 U/L 39-308 CKMB (test code=CKMB) 3.1 ng/mL 0.0-4.9 CKMB% (test code=CKMBP) 1.4 % 0.0-3.4 CK [id number] 13:54:00 Test Item Value Reference Range Comments CK (test code=CK) 222 U/L 39-308 Partial Thromboplastin [id number] 13:43:00 Test Item Value Reference Range Comments aPTT (test code=PTT) 35.70 seconds 24.39-37.25 Prothrombin [id number] 13:43:00 Test Item Value Reference Range Comments PT (test code=PT) 11.30 seconds 9.78-13.35 INR (test code=INR) 0.99 Ratio 0.6-1.2 Lactic Acid [id number] 13:41:00 Test Item Value Reference Range Comments Lactic Acid, Bld (test code=LAC) 1.3 mmol/L 0.5-1.9 CBC with Jcgfijdlzolh9599-22-60 13:32:00 Test Item Value Reference Range Comments [...] Lymph Abs (test code=ALYMPH) 1.2 K/cumm 0.5-4.6 [place] Abs (test code=AMONO) 0.6 K/cumm 0.0-1.2 Eos Abs (test code=AEOS) 0.23 K/cumm 0.00-0.74 Baso Abs (test code=ABASO) 0.0 K/cumm 0.00-0.21 XR CHEST 1 [id number] 12:50:14XR CHEST 1 VIEWLOCATION: [id number]: None.INDICATION: CoughDISCUSSION:A single portable chest radiograph was [...]
[2018-05-16] MEDS ORDERED: PIPER/TAZO/NS 3.375gm 3.375 GM/100 ML BAG ONE (21:02)
[2018-05-16] MEDS ORDERED: VANCOMYCIN 1 GM/250 ML BAG ONE (21:02)
[2018-05-16] MEDS ORDERED: SMZ./TMP. 800/160 MG TABLET ONE (21:02)
[2018-05-16] MEDS ORDERED: ACETAMINOPHEN 325 MG TABLET ONE (21:02)
[2018-05-16] MEDS ORDERED: NA CHLORIDE 0.9% 1,000 ML ONE (21:02)
[2018-05-16 21:18] LABS: Absolute Lymphocytes (CBC) 0.6 K/uL (0.7-4.9); Absolute Neutrophil 12.1 K/uL (1.8-8.0); Basophils % 0.4 % (0-1.3); Hematocrit 33.5 % (39.6-49.0); Lymphocytes % 4.5 % (15.3-44.8); MCH 30.9 pg (27.0-35.0); MCV 92.7 fL (80-100); MPV 7.4 fL (7.6-11.3); RBC Red Blood Cell Count 3.61 M/uL (4.33-5.43)
[2018-05-16 21:19] LABS: Absolute Monocytes 1.3 K/uL (0.1-1.3)
--- NOTE | 2018-05-16 21:31 | RAD REPORT ---
EXAM DESCRIPTION: Segun Single View05/16/2018 9:17 pm CLINICAL HISTORY: Fever COMPARISON: January 2018 FINDINGS: Small to moderate right and small left pleural effusions are suspected with right basilar atelectasis. Upper lobes appear clear The heart is mildly to moderately enlarged. Postsurgical changes involve the chest. Upper lobe pulmonary vessels are prominent indicative of pulmonary venous hypertension
[2018-05-16 21:55] LABS: Blood Morphology Comment NOT SEEN (NOT SEEN); Platelet Estimate ADEQ; Urine White Blood Cell Casts OK
[2018-05-16 22:46] LABS: Protime INR 1.84
[2018-05-16 23:01] LABS: Albumin 2.4 g/dL (3.4-5.0); Bilirubin Direct 0.9 mg/dL (0-0.2); Bilirubin Total 1.3 mg/dL (0.2-1.0); Potassium 3.7 mmol/L (3.5-5.1); Protein, Total 7.2 g/dL (6.4-8.2); Troponin (Emerg Dept Use Only) 0.17 ng/mL (0.0-0.045)
--- NOTE | 2018-05-17 00:15 | ER ---
Nurse's Notes [facility] Name: Salvatore Goldman Age: 63 yrs Sex: Male : 1955 Arrival Date: 05/16/2018 Time: 19:38 Bed 7 Private MD: Trace Tesfaye Diagnosis: Sepsis, unspecified organism Presentation: 05/16 19:45 Presenting complaint: Patient states: "[facility] called me and said I had an aj infection in my blood today. I walked out of there today and they called and said I had an infection.". Transition of care: patient was not received from another setting of care. Onset of symptoms was May 16, 2018. Risk Assessment: Do you want to hurt yourself or someone else? Patient reports no desire to harm self or others. Initial Sepsis Screen: Does the patient meet any 2 criteria? No. Patient's initial sepsis screen is negative. Does the patient have a suspected source of infection? No. Patient's initial sepsis screen is negative. Care prior to arrival: None. 19:45 Method Of Arrival: Wheelchair aj 19:45 Acuity: NARDA 2 aj Triage Assessment: 19:47 General: Appears in no apparent distress. uncomfortable, Behavior is calm, cooperative, aj appropriate for age. Pain: Denies pain. Neuro: Level of Consciousness is awake, alert, obeys commands, Oriented to person, place, time, situation, Appropriate for age. Cardiovascular: Dialysis shunt: in the left antecubital area. Respiratory: Reports shortness of breath cough that is Airway is patent Respiratory effort is even, unlabored, Respiratory pattern is tachypnea. Derm: Skin is intact, is healthy with good turgor, Skin is pink, warm \\T\\ dry. normal. Historical: - Allergies: 19:47 codeine sulfate; aj - Home Meds: 19:47 aspirin 81 mg Oral chew 1 tab once daily [Active]; atorvastatin 20 mg Oral tab 1 tab aj once daily [Active]; docusate sodium 100 mg Oral tab 1 tab 2 times per day [Active]; Isentress 400 mg Oral tab 1 tab 2 times per day [Active]; Kaletra 200-50 mg Oral tab 2 tabs 2 times per day [Active]; lamivudine 10 mg/mL Oral soln 2.5 mL once daily [Active]; metoprolol tartrate 25 mg Oral tab 1 tab once daily [Active]; Vitamin D Oral 77002 unit WEEKLY [Active]; warfarin 5 mg Oral tab 1 tab once daily [Active]; - PMHx: 19:47 Cirrhosis; Diabetes - NIDDM; Dialysis; heart valve; Hepatitis; HIV; Hyperlipidemia; aj Karposi Sarcoma (left leg); kidney failure; - PSHx: 19:47 Dialysis Fistula (left Arm); Heart Surgery; valve replacement; aj - Immunization history:: Adult Immunizations up to date. - Social history:: Smoking status: Patient/guardian denies using tobacco. - Ebola Screening: : Patient negative for fever greater than or equal to 101.5 degrees Fahrenheit, and additional compatible Ebola Virus Disease symptoms Patient denies exposure to infectious person Patient denies travel to an Ebola-affected area in the 21 days before illness onset No symptoms or risks identified at this time. Screenin:08 Abuse screen: Denies threats or abuse. Nutritional screening: No deficits noted. tl2 Tuberculosis screening: No symptoms or risk factors identified. Fall Risk Gait- Weak (10 pts.). Assessment: 20:08 General: Appears in no apparent distress. uncomfortable, Behavior is calm, cooperative, tl2 appropriate for age. General: Pt states he has been at [facility] for 10 days getting antibiotics for a blood infection, but left AMA today. Neuro: Level of Consciousness is awake, alert, obeys commands, Oriented to person, place, time, situation. Cardiovascular: Denies chest pain. Respiratory: Airway is patent Respiratory effort is even, unlabored, Respiratory pattern is tachypnea. GI: No signs and/or symptoms were reported involving the gastrointestinal system. : No signs and/or symptoms were reported regarding the genitourinary system. Derm: Skin is pink, warm \\T\\ dry. 20:11 Reassessment: Notified charge nurse that pt will need midline. tl2 21:08 Reassessment: Patient appears in no apparent distress at this time. Patient and/or tl2 family updated on plan of care and expected duration. Pain level reassessed. Patient is alert, oriented x 3, equal unlabored respirations, skin warm/dry/pink. Pt resting, family at bedside. 22:55 Reassessment: Patient appears in no apparent distress at this time. Patient and/or tl2 family updated on plan of care and expected duration. Pain level reassessed. Patient is alert, oriented x 3, equal unlabored respirations, skin warm/dry/pink. Pt has agreed to be transferred back to [facility] MD notified. Patient states feeling better. 23:46 Reassessment: Pt appears to be sleeping, RR even and unlabored. Awaiting transfer tl2 orders. Vital Signs: 19:47 BP 154 / 88; Pulse 140; Resp 34; Temp 100.6; Pulse Ox 93% on R/A; Weight 72.57 kg; aj Height 5 ft. 7 in. (170.18 cm); 20:19 BP 147 / 94; Pulse 137; Resp 25; Pulse Ox 94% on 2 lpm NC; tl2 21:07 BP 185 / 100; Pulse 132; Resp 25; Pulse Ox 96% on 2 lpm NC; tl2 22:06 BP 156 / 86; Pulse 120; Resp 20; Temp 99.7(O); Pulse Ox 99% on 2 lpm NC; tl2 22:55 BP 148 / 82; Pulse 115; Resp 23; Pulse Ox 96% on 2 lpm NC; tl2 23:46 BP 143 / 88; Pulse 110; Resp 20; Pulse Ox 97% on 2 lpm NC; tl2 05/17 01:22 BP 158 / 94; Pulse 104; Resp 20; Pulse Ox 98% on 2 lpm NC; tl2 02:48 BP 141 / 92; Pulse 106; Resp 22; Temp 98.6(O); Pulse Ox 100% on 2 lpm NC; tl2 05/16 19:47 Body Mass Index 25.06 (72.57 kg, 170.18 cm) aj Vitals: 05/16 21:07 Cardiac Rhythm Assessment Sinus tach. tl2 ED Course: 19:38 Patient arrived in ED. am2 19:38 Trace Tesfaye MD is Private Physician. am2 19:46 Triage completed. aj 19:47 Arm band placed on left wrist. Patient placed in an exam room. aj 20:06 Gregorio Juarez MD is Attending Physician. gs 20:08 Vanna Gold, LAURYN is Primary Nurse. tl2 20:08 Patient has correct armband on for positive identification. Bed in low position. Call tl2 light in reach. Side rails up X 1. 20:21 EKG done, by biomedical engineering technician. reviewed by Gregorio Juarez MD. oe 20:40 Initial lab(s) drawn, by me, sent to lab. First set of blood cultures drawn by me. fc Inserted 18 gauge 8 cm midline to right upper arm brachial vein on first attempt. Good blood return and flushes well. Blood collected. 21:17 Chest Single View XRAY In Process Unspecified. EDME 05/17 00:55 Cayla Jorge MD is Hospitalizing Provider. gs 02:49 No provider procedures requiring assistance completed. Patient admitted, IV remains in tl2 place. Administered Medications: 05/16 21:04 Drug: Zosyn 3.375 grams Route: IVPB; Infused Over: 60 mins; Site: right upper arm; tl2 22:23 Follow up: IV Status: Completed infusion tl2 21:05 Drug: Bactrim (160 mg-800 mg (DS) 1 tablet Route: PO; tl2 22:23 Follow up: Response: No adverse reaction tl2 21:05 Drug: Tylenol 650 mg Route: PO; tl2 22:23 Follow up: Response: Temperature is decreased tl2 21:05 Drug: NS 0.9% 1000 ml Route: IV; Rate: 1 bolus; Site: right upper arm; tl2 05/17 02:49 Follow up: IV Status: Completed infusion; IV Intake: 1000ml tl2 05/16 22:24 Drug: vancoMYCIN 1 grams Route: IVPB; Infused Over: 2 hrs; Site: right upper arm; tl2 05/17 01:30 Follow up: IV Status: Completed infusion tl2 Point of Care Testing: Blood Glucose: 05/16 21:07 Blood Glucose: 110 mg/dL; tl2 Ranges: Intake: 05/17 02:49 IV: 1000ml; Total: 1000ml. tl2 Outcome: 00:14 ER care complete, transfer ordered by . gs 00:57 Decision to Hospitalize by Provider. gs 02:49 Admitted to Med/surg accompanied by tech, via stretcher, room 229, with oxygen, with tl2 chart, Report called to LAURYN Cifuentes 02:49 Condition: stable 02:49 Discharge instructions given to patient, Instructed on the need for admit. 03:30 Patient left the ED. tl2 Signatures: Dispatcher [employer] Michelle Benitez RN RN aj Chretien, Felicia, RN RN fc Vanna Gold RN RN tl2 Selwyn Leone Amanda 2 Gregorio Juarez MD MD gs Corrections: (The following items were deleted from the chart) 05/16 20:20 20:19 BP 147 / 94; Pulse 137bpm; Resp 18bpm; Pulse Ox 94% 2 lpm Nasal Cannula; tl2 tl2
--- NOTE | 2018-05-17 00:15 | EDPHYS ---
Physician Documentation [facility] Name: Salvatore Goldman Age: 63 yrs Sex: Male : 1955 Arrival Date: 05/16/2018 Time: 19:38 Bed 7 Private MD: Trace Tesfaye ED Physician Gregorio Juarez HPI: 05/16 23:26 This 63 yrs old Black Male presents to ER via Wheelchair with complaints of General gs Weakness. 23:26 The patient presents to the emergency department with weakness of the entire body, gs generalized weakness. Onset: The symptoms/episode began/occurred 5 day(s) ago. Associated signs and symptoms: Pertinent positives: + blood culture. Severity of symptoms: At their worst the symptoms were severe in the emergency department the symptoms are unchanged. Historical: - Allergies: 19:47 codeine sulfate; aj - Home Meds: 19:47 aspirin 81 mg Oral chew 1 tab once daily [Active]; atorvastatin 20 mg Oral tab 1 tab aj once daily [Active]; docusate sodium 100 mg Oral tab 1 tab 2 times per day [Active]; Isentress 400 mg Oral tab 1 tab 2 times per day [Active]; Kaletra 200-50 mg Oral tab 2 tabs 2 times per day [Active]; lamivudine 10 mg/mL Oral soln 2.5 mL once daily [Active]; metoprolol tartrate 25 mg Oral tab 1 tab once daily [Active]; Vitamin D [place] 94049 unit WEEKLY [Active]; warfarin 5 mg Oral tab 1 tab once daily [Active]; - PMHx: 19:47 Cirrhosis; Diabetes - NIDDM; Dialysis; heart valve; Hepatitis; HIV; Hyperlipidemia; aj Karposi Sarcoma (left leg); kidney failure; - PSHx: 19:47 Dialysis Fistula (left Arm); Heart Surgery; valve replacement; aj - Immunization history:: Adult Immunizations up to date. - Social history:: Smoking status: Patient/guardian denies using tobacco. - Ebola Screening: : Patient negative for fever greater than or equal to 101.5 degrees Fahrenheit, and additional compatible Ebola Virus Disease symptoms Patient denies exposure to infectious person Patient denies travel to an Ebola-affected area in the 21 days before illness onset No symptoms or risks identified at this time. ROS: 23:26 All other systems are negative. gs Exam: 23:26 Head/Face: Normocephalic, atraumatic. Eyes: Pupils equal round and reactive to light, gs extra-ocular motions intact. Lids and lashes normal. Conjunctiva and sclera are non-icteric and not injected. Cornea within normal limits. Periorbital areas with no swelling, redness, or edema. ENT: Nares patent. No nasal discharge, no septal abnormalities noted. Tympanic membranes are normal and external auditory canals are clear. Oropharynx with no redness, swelling, or masses, exudates, or evidence of obstruction, uvula midline. Mucous membranes moist. Neck: Trachea midline, no thyromegaly or masses palpated, and no cervical lymphadenopathy. Supple, full range of motion without nuchal rigidity, or vertebral point tenderness. No Meningismus. Chest/axilla: Normal chest wall appearance and motion. Nontender with no deformity. No lesions are appreciated. 23:26 Respiratory: Lungs have equal breath sounds bilaterally, clear to auscultation and percussion. No rales, rhonchi or wheezes noted. No increased work of breathing, no retractions or nasal flaring. Abdomen/GI: Soft, non-tender, with normal bowel sounds. No distension or tympany. No guarding or rebound. No evidence of tenderness throughout. Back: No spinal tenderness. No costovertebral tenderness. Full range of motion. MS/ Extremity: Pulses equal, no cyanosis. Neurovascular intact. Full, normal range of motion. Neuro: Awake and alert, GCS 15, oriented to person, place, time, and situation. Cranial nerves II-XII grossly intact. Motor strength 5/5 in all extremities. Sensory grossly intact. Cerebellar exam normal. Normal gait. 23:26 Constitutional: The patient appears alert, awake. 23:26 Cardiovascular: Rate: tachycardic, Rhythm: regular, Pulses: no pulse deficits are appreciated. 23:26 ECG was reviewed by the Attending Physician. 05/17 00:08 Skin: lesion(s), ? kaposi sarcoma le. Vital Signs: 05/16 19:47 BP 154 / 88; Pulse 140; Resp 34; Temp 100.6; Pulse Ox 93% on R/A; Weight 72.57 kg; aj Height 5 ft. 7 in. (170.18 cm); 20:19 BP 147 / 94; Pulse 137; Resp 25; Pulse Ox 94% on 2 lpm NC; tl2 21:07 BP 185 / 100; Pulse 132; Resp 25; Pulse Ox 96% on 2 lpm NC; tl2 22:06 BP 156 / 86; Pulse 120; Resp 20; Temp 99.7(O); Pulse Ox 99% on 2 lpm NC; tl2 22:55 BP 148 / 82; Pulse 115; Resp 23; Pulse Ox 96% on 2 lpm NC; tl2 23:46 BP 143 / 88; Pulse 110; Resp 20; Pulse Ox 97% on 2 lpm NC; tl2 05/17 01:22 BP 158 / 94; Pulse 104; Resp 20; Pulse Ox 98% on 2 lpm NC; tl2 02:48 BP 141 / 92; Pulse 106; Resp 22; Temp 98.6(O); Pulse Ox 100% on 2 lpm NC; tl2 05/16 19:47 Body Mass Index 25.06 (72.57 kg, 170.18 cm) aj MDM: 05/16 20:43 Patient medically screened. 23:26 Data reviewed: vital signs, nurses notes. Response to treatment: the patient's symptoms gs have mildly improved after treatment. ED course: dont have records and discussed treatment options for patient wants to go back to [facility] dr flowers will admit if cannot be transferred. 05/17 00:08 ED course: ddx pneumonia, sepsis, severe sepsis, complication HIV. 05/16 20:36 Order name: Basic Metabolic Panel; Complete Time: 23:48 05/16 20:36 Order name: Blood Culture Adult (2) 05/16 20:36 Order name: CBC with Diff; Complete Time: 23:48 05/16 20:36 Order name: Lactate; Complete Time: 21:52 05/16 20:36 Order name: LFT's; Complete Time: 23:48 05/16 20:36 Order name: Lipase; Complete Time: 23:48 05/16 20:36 Order name: Procalcitonin; Complete Time: 23:48 05/16 20:36 Order name: Protime (+inr); Complete Time: 23:48 05/16 20:36 Order name: Troponin (emerg Dept Use Only); Complete Time: 23:48 05/16 21:10 Order name: Lactic Dehydrogenase; Complete Time: 23:48 EDMS 05/16 21:23 Order name: CBC Smear Scan; Complete Time: 23:48 EDMS 05/16 23:18 Order name: Glucose, Ancillary Testing; Complete Time: 23:48 EDMS 05/17 01:04 Order name: Protime (+INR) EDMS 05/16 20:36 Order name: Chest Single View XRAY; Complete Time: 21:52 gs 05/16 20:36 Order name: Accucheck; Complete Time: 21:05 05/16 20:36 Order name: Cardiac monitoring; Complete Time: 20:45 gs 05/17 01:04 Order name: CONS Pharmacy Consult EDMS 05/17 01:04 Order name: CONS Physician Consult EDMS 05/17 01:04 Order name: Renal EDMS 05/17 01:04 Order name: PTT, Activated Partial Thromb EDMS 05/17 01:04 Order name: CBC with Automated Diff EDMS 05/17 01:04 Order name: Comprehensive Metabolic Panel EDMS 05/17 01:04 Order name: Magnesium EDMS 05/17 01:04 Order name: Phosphorus EDMS 05/16 20:36 Order name: EKG - Nurse/Tech; Complete Time: 20:45 gs 05/16 20:36 Order name: IV Saline Lock - Large Bore; Complete Time: 20:45 gs 05/16 20:36 Order name: Labs collected and sent; Complete Time: 20:45 gs 05/16 20:36 Order name: O2 Per Protocol; Complete Time: 20:45 gs 05/16 20:36 Order name: O2 Sat Monitoring; Complete Time: 20:45 gs EC/14 23:26 Rate is 137 beats/min. Rhythm is regular, Sinus tachycardia. NJ interval is normal. QRS gs interval is normal. T waves are Flattened. Clinical impression: NSR w/ Non-specific ST/T Changes. Interpreted by me. Administered Medications: 21:04 Drug: Zosyn 3.375 grams Route: IVPB; Infused Over: 60 mins; Site: right upper arm; tl2 22:23 Follow up: IV Status: Completed infusion tl2 21:05 Drug: Bactrim (160 mg-800 mg (DS) 1 tablet Route: PO; tl2 22:23 Follow up: Response: No adverse reaction tl2 21:05 Drug: Tylenol 650 mg Route: PO; tl2 22:23 Follow up: Response: Temperature is decreased tl2 21:05 Drug: NS 0.9% 1000 ml Route: IV; Rate: 1 bolus; Site: right upper arm; tl2 05/17 02:49 Follow up: IV Status: Completed infusion; IV Intake: 1000ml tl2 05/16 22:24 Drug: vancoMYCIN 1 grams Route: IVPB; Infused Over: 2 hrs; Site: right upper arm; tl2 05/17 01:30 Follow up: IV Status: Completed infusion tl2 Point of Care Testing: Blood Glucose: 05/16 21:07 Blood Glucose: 110 mg/dL; tl2 Ranges: Critical Glucose Levels:Adult <50 mg/dl or >400 mg/dl <40 mg/dl or >180 mg/dl Disposition: 05/17/18 00:57 Hospitalization ordered by Cayla Flowers for Inpatient Admission. Preliminary diagnosis is Sepsis, unspecified organism. - Bed requested for Telemetry/MedSurg (Inpatient). - Status is Inpatient Admission. tl2 - Condition is Stable. - Problem is an acute exacerbation. - Symptoms are unchanged. UTI on Admission? No Signatures: Dispatcher [employer] [facility] Marielle Sky RN RN mw Myers, Amanda, RN RN aj Knox, Taylor, RN RN 2 Gregorio Juarez MD MD Corrections: (The following items were deleted from the chart) 20:52 20:36 Urine Dipstick-Ancillary ordered. fc 21:10 20:38 LACTIC DEHYDROGENASE+C.LAB.BRZ ordered. [facility] 05/17 00:13 05/16 23:26 Respiratory: Lungs have equal breath sounds bilaterally, clear to auscultation and percussion. No rales, rhonchi or wheezes noted. No increased work of breathing, no retractions or nasal flaring. Abdomen/GI: Soft, non-tender, with normal bowel sounds. No distension or tympany. No guarding or rebound. No evidence of tenderness throughout. Back: No spinal tenderness. No costovertebral tenderness. Full range of motion. Skin: Warm, dry with normal turgor. Normal color with no rashes, no lesions, and no evidence of cellulitis. MS/ Extremity: Pulses equal, no cyanosis. Neurovascular intact. Full, normal range of motion. Neuro: Awake and alert, GCS 15, oriented to person, place, time, and situation. Cranial nerves II-XII grossly intact. Motor strength 5/5 in all extremities. Sensory grossly intact. Cerebellar exam normal. Normal gait. 05/17 00:54 00:14 05/17/2018 00:14 Transfer ordered to Other Acute Care Facility. Diagnosis is Sepsis, unspecified organism. Reason for transfer: Higher level of care. Accepting physician is galo. Condition is Stable. Problem is new. Symptoms are unchanged. : 00:57 Hospitalization Ordered by Cayla Flowers MD for Inpatient Admission. Preliminary mw diagnosis is Sepsis, unspecified organism. Bed requested for Telemetry/MedSurg (Inpatient). Status is Inpatient Admission. Condition is Stable. Problem is an acute exacerbation. Symptoms are unchanged. UTI on Admission? No. 03:30 01:17 05/17/2018 00:57 Hospitalization Ordered by Cayla Flowers MD for Inpatient tl2 Admission. Preliminary diagnosis is Sepsis, unspecified organism. Bed requested for Telemetry/MedSurg (Inpatient). Status is Inpatient Admission. Condition is Stable. Problem is an acute exacerbation. Symptoms are unchanged. UTI on Admission? No. mw
[2018-05-17] MEDS ORDERED: ALPRAZOLAM 0.25 MG TABLET PO PRN (00:55)
[2018-05-17] MEDS ORDERED: ONDANSETRON 4 MG/2 ML VIAL IV PRN (00:55)
[2018-05-17] MEDS ORDERED: VANCOMYCIN/NS 1 gm 1 GM/250 ML BAG IVPB SCH (01:00)
[2018-05-17] MEDS ORDERED: Levofloxacin 250mg IV 250 MG/50 ML BAG IV SCH (01:00)
[2018-05-17 05:45] LABS: Absolute Lymphocytes (CBC) 0.6 K/uL (0.7-4.9); Absolute Monocytes 1.3 K/uL (0.1-1.3); Absolute Neutrophil 12.3 K/uL (1.8-8.0); Basophils % 0.4 % (0-1.3); Hematocrit 30.6 % (39.6-49.0); Lymphocytes % 4.4 % (15.3-44.8); MCH 31.5 pg (27.0-35.0); MCV 92.1 fL (80-100); MPV 7.5 fL (7.6-11.3); Monocytes % 8.8 % (3.3-12.3); RBC Red Blood Cell Count 3.33 M/uL (4.33-5.43)
[2018-05-17 06:01] LABS: Protime INR 1.92
[2018-05-17 06:09] LABS: Albumin 2.4 g/dL (3.4-5.0); Bilirubin Total 1.1 mg/dL (0.2-1.0); Magnesium 2.1 mg/dL (1.8-2.4); Phosphorus 4.5 mg/dL (2.5-4.9); Potassium 4.2 mmol/L (3.5-5.1); Protein, Total 7.4 g/dL (6.4-8.2)
--- NOTE | 2018-05-17 08:34 | P.HP ---
Certification for Inpatient Patient admitted to: Inpatient With expected LOS: >2 Midnights Patient will require the following post-hospital care: None Practitioner: I am a practitioner with admitting privileges, knowledge of patient current condition, hospital course, and medical plan of care. Services: Services provided to patient in accordance with Admission requirements found in Title 42 Section 412.3 of the Code of Federal Regulations Patient History Date of Service: 05/17/18 Reason for admission: Bacteremia in a patient with HIV History of Present Illness: Patient is a 63-year-old gentleman with a history of HIV who presents to our hospital after leaving against medical advice from a facility in [facility]. He was told after he had left that his blood cultures had come back positive and he needed to go to the closest emergency room. In the emergency room patient was afebrile. He did not have a white blood cell count either. He was probably seen by the ER physician and it was at that time decision was made to admit and try to get records from the outside facility so we can see what all was looked into. We will also get our infectious disease doctor to see the patient as well. Patient has had labs performed. And will repeat this in the morning. Allergies codeine Allergy (Verified 05/17/18 03:42) Itching Home Medications: Lamivudine [Epivir] 2.5 ml PO BID 02/18/18 Atorvastatin Calcium [Lipitor] 20 mg PO BEDTIME 05/17/18 Cholecalciferol (Vitamin D3) [Vitamin D3] 50,000 units PO EVERY 7TH DAY Lopinavir/Ritonavir [Kaletra 200-50 MG Tablet*] 2 tab PO BID 05/17/18 Metoprolol Succinate [Toprol Xl] 25 mg PO DAILY 05/17/18 Raltegravir Potassium [Isentress*] 400 mg PO BID 05/17/18 Warfarin Sodium [Coumadin*] 12.5 mg PO DAILY 5 PM 05/17/18 - Past Medical/Surgical History Has patient received pneumonia vaccine in the past: Yes Diabetic: Yes -: HIV-AIDS -: Hepatitis C -: DM -: HTN -: Karposi Sarcoma of the LLE -: ESRD -: Cirrhosis -: ESRD on HD -: AV fistula to the LUE -: Mitral Valve Replacement Psychosocial/ Personal History: He has been with his current partner for years, 7-children, Disabled. - Family History Father Medical History: Diabetes, Other (see notes) Notes: bilateral amputee, gout Mother Medical History: Heart disease, Hypertension, Stroke - Social History Smoking Status: Never smoker Alcohol use: No CD- Drugs: No Caffeine use: No Place of Residence: Home Review of Systems 10-point ROS is otherwise unremarkable Physical Examination - Vital Signs Temperature: 98.8 F Blood Pressure: 180/84 Pulse: 105 Respirations: 20 Pulse Ox (%): 97 - Physical Exam General: Alert, In no apparent distress, Oriented x3 HEENT: Atraumatic, PERRLA, Mucous membr. moist/pink, EOMI, Sclerae nonicteric Neck: Supple, 2+ carotid pulse no bruit, No LAD, JVD distended Respiratory: Diminished Cardiovascular: Regular rate/rhythm, Normal S1 S2, No murmurs Gastrointestinal: Normal bowel sounds, Soft and benign, Non-distended, No tenderness Musculoskeletal: No clubbing, No swelling, No tenderness Integumentary: No rashes Neurological: Normal gait, Normal speech, Normal strength at 5/5 x4 extr, Normal tone, Sensation intact, Cranial nerves 3-12 intact, Normal affect Lymphatics: No axilla or inguinal lymphadenopathy - Studies Laboratory Data (last 24 hrs) 05/16/18 22:21: PT 21.9 H, INR 1.84 05/16/18 22:21: Sodium 131 L, Potassium 3.7, BUN 32 H, Creatinine 5.90 H*, Glucose 102, Total Bilirubin 1.3 H, AST 21, ALT 19, Alkaline Phosphatase 43 L, Lipase 372 05/16/18 20:35: WBC 14.0 H, Hgb 11.2 L, Hct 33.5 L, Plt Count 126 L Assessment & Plan - Plan Assessment: 1. Fever 2. Bacteremia 3. History of HIV infection 4. immunocompromised state 5. end-stage renal disease 6. history of hypertension and type 2 diabetes Plan: 1. patient needs to take his medications regularly 2. Continue following up at the [facility] 3. Hemodialysis per Nephrology 4. Strict blood pressure and blood sugar control 5. GI and DVT prophylaxis Discharge Plan: Home Plan to discharge in: Greater than 2 days - Advance Directives Does patient have a Living Will: No Does patient have a Durable POA for Healthcare: No - Code Status/Comfort Care Code Status Assessed: Yes Code Status: Full Code Critical Care: No Time Spent Managing PTS Care (In Minutes): 55
[2018-05-17] MEDS: ACETAMINOPHEN 500 MG TAB PO PRN ×3 (08:58→23:31)
--- NOTE | 2018-05-17 12:10 | EKG ---
Test Date: 2018-05-16 Test Time: 20:12:30 Manager Financial Reporting: MARCELINA MEASUREMENT RESULTS: Intervals: Rate: 137 AL: 152 QRSD: 80 QT: 316 QTc: 477 [place]: P: 38 AL: 152 QRS: 74 T: 74 INTERPRETIVE STATEMENTS: Sinus tachycardia with occasional premature ventricular complexes Otherwise normal ECG Compared to ECG 02/24/2018 22:16:26 Ventricular premature complex(es) now present T-wave abnormality no longer present Electronically Signed On 05-17-18 12:07:27 CDT by Rafael Bedolla
--- NOTE | 2018-05-17 13:05 | CON ---
Date of Consultation: 05/17/2018 Reason For Consult: ESRD, on dialysis; bacteremia in a patient with HIV. History Of Present Illness: Mr. Goldman is a 63-year-old gentleman with past medical history of HIV, w ho presented to the hospital after leaving against medical advice from [facility], and he was called and told that his blood cultures had come back positive and he needed to go to the emergen cy room. The patient has had blood cultures drawn and states that he is doing okay. He is complaini ng of pain in his left groin, and he has some swelling and looks like inguinal lymphadenopathy noted in his left groin. The patient also states that he has had biopsy of his right inguinal region about 2 weeks ago in [place], but he does not know the results of that. He denies any fevers or chills at this time. Past Medical History: Significant for history of HIV, on medications; history of ESRD, on dialysis; history of long-term anticoagulation with Coumadin secondary to mechanical valve. 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 Social History: He is homosexual, and he has been living with his current partner for the last many years. He is disabled. Family History: Significant for diabetes in many of his family members, and also, mother with histor y of heart disease, hypertension, and stroke. Social History: Denies any smoking or drug use at this time. Review of Systems: Positive for pain in his left groin region with some minor drainage. He also complains of back pain and leg pain. Denies any fevers or chills. Denies any shortness of breath. Denies any chest pain, headache, or blurry vision. All other review of systems are negative. Physical Examination: Vital signs: Showing temperature of 98.8, pulse rate of 105, respiratory rate of 20, blood pressure of 180/84. General: He appears in no acute distress. Lungs: Clear to auscultation. Abdomen: Soft and nontender. Extremities: Showed no evidence of edema. The patient has left inguinal lymphadenopathy, which was noted to be very tender with some serous drainage noted. Laboratory Data: At this time are showing sodium of 131, potassium of 4.2, chloride of 95, BUN of 38 , and creatinine of 6.4. CBC showing stable hemoglobin, hematocrit, and platelet count. WBC count o f 14,000 was noted. Current Medications: Include Tylenol, Levaquin after dialysis, vancomycin after dialysis. Blood cultures are still pending at this time. Impression: 1.End-stage renal disease, on dialysis. The patient is on Saturday, , and Saturday dialysis. We will plan for dialysis today per his regular schedule. No volume issues were noted. We will pl an for 2 L of ultrafiltration with a 3K 2.5 calcium bath. 2.Fever with bacteremia. The patient has multiple risk factors including underlying human immunodef iciency virus infection and also end-stage renal disease, on dialysis. We will get CT scan of his gr oin region as well as his pelvic region to evaluate for this lymphadenopathy and if the patient has a ny pus pocket in there. We are awaiting results of the blood cultures. We will also get reports fro [facility] for further evaluation. HAART medications are currently on hold. Continue t o monitor closely and await for blood culture reports. I agree with prophylactic antibiotics for rig ht now until the blood culture reports are available from outside hospital and also our own blood cul ture reports come back. In the meanwhile, continue all other medications and plan of care. SHERI/JANET Voice ID: [id number] Report ID: [id number]
[2018-05-17] MEDS ORDERED: VANCOMYCIN 500 MG in NA CHLORIDE 0.9% 100 ML IV SCH (14:30)
[2018-05-17] MEDS: Levofloxacin 250mg IV 250 MG/50 ML BAG IV SCH ×2 (15:00→20:03)
[2018-05-17] MEDS: WARFARIN SODIUM 5 MG TAB PO SCH ×2 (17:00→20:02)
[2018-05-17] MEDS ORDERED: NA CHLORIDE 0.9% 100 ML ONE (19:54)
[2018-05-17] MEDS: ATORVASTATIN 20 MG TAB PO SCH (20:04)
[2018-05-17] MEDS: LOPINAVIR PO SCH (21:00)
[2018-05-17] MEDS: LAMIVUDINE PO SCH (21:00)
[2018-05-17] MEDS: RITONAVIR PO SCH (21:00)
[2018-05-17] MEDS ORDERED: RALTEGRAVIR POTASSIUM 400 MG TABLET PO SCH (21:00)
[2018-05-18] MEDS: HYDRALAZINE HCL 20 MG/ML VIAL IV PRN ×2 (01:16→17:41)
[2018-05-18 05:09] LABS: Absolute Lymphocytes (CBC) 0.7 K/uL (0.7-4.9); Absolute Monocytes 1.5 K/uL (0.1-1.3); Absolute Neutrophil 11.8 K/uL (1.8-8.0); Basophils % 0.1 % (0-1.3); Eosinophils % 0.4 % (0-4.4); Hematocrit 29.2 % (39.6-49.0); MCH 31.1 pg (27.0-35.0); MCV 90.8 fL (80-100); MPV 7.6 fL (7.6-11.3); Monocytes % 10.6 % (3.3-12.3); RBC Red Blood Cell Count 3.21 M/uL (4.33-5.43)
[2018-05-18 05:23] LABS: Blood Morphology Comment NOT SEEN (NOT SEEN); Platelet Estimate ADEQ
[2018-05-18 07:07] LABS: Albumin 2.4 g/dL (3.4-5.0); Magnesium 2.1 mg/dL (1.8-2.4); Potassium 3.5 mmol/L (3.5-5.1); Protein, Total 7.2 g/dL (6.4-8.2)
--- NOTE | 2018-05-18 08:01 | RAD REPORT ---
EXAM DESCRIPTION: RENAL - Abdomen Pelvis Scan US - 05/17/2018 10:27 pm CLINICAL HISTORY: Abnormal renal function, abdominal and flank pain COMPARISON: None. TECHNIQUE: Sonographic grayscale evaluation of the kidneys was performed with measurements obtained and gross anatomic assessment performed. Doppler evaluation of the renal arteries, interlobar arterie s and aorta performed. Waveforms and velocities were recorded. The renal artery ratios in resistive index values were calculated. FINDINGS: Right kidney measures 8.0 x 3.5 x 3.1 cm. Left kidney measures 7.4 x 4.1 x 3.0 cm. Both ki dneys show an increase in cortical typical for mild medical renal disease. No hydronephrosis or solid mass lesion identifiable. Urinary bladder is contracted with a 20 milliliter volume. Bladder wall an intraluminal assessment are very limited. Peak systolic velocity values for the aorta, renal arteries an arcuate arteries fall within a normal range. Normal or near normal resistive index values are identified. No suspicious waveform pattern is seen. Renal artery ratios are normal measuring 0.9 on the right and 0.7 on the left. IMPRESSION: Normal renal artery ratios. No renal artery stenosis findings. No hydronephrosis or suspicious renal parenchymal mass. Medical renal disease is evident.
[2018-05-18] MEDS: RITONAVIR PO SCH (09:00)
[2018-05-18] MEDS: LAMIVUDINE PO SCH (09:00)
[2018-05-18] MEDS: LOPINAVIR PO SCH (09:00)
[2018-05-18] MEDS: METOPROLOL XL 25 MG TAB PO SCH (09:06)
--- NOTE | 2018-05-18 09:26 | RAD REPORT ---
EXAM DESCRIPTION: CT - Abdomen Pelvis W Contrast - 05/18/2018 8:45 am CLINICAL HISTORY: Abdominal pain, possible sepsis COMPARISON: None. TECHNIQUE: Biphasic, helical CT imaging of the abdomen and pelvis was performed following 100 ml non -ionic IV contrast. Oral contrast was given. All CT scans are performed using dose optimization technique as appropriate and may include automated exposure control or mA/KV adjustment according to patient size. FINDINGS: Moderately large bilateral pleural effusions are present with partial atelectasis of each lower lobe. Mild cardiomegaly without pericardial thickening or effusion. Liver is large with a heterogeneous parenchymal pattern. There is subtle nodularity to the liver caps ule. Given the heterogeneity, a definitive liver parenchymal focal lesion is not identified. Spleen i s upper normal in size. No focal splenic finding. No mass of the pancreatic parenchyma identified. No peripancreatic inflammatory stranding. Gallbladder is partially contracted. There is minimal enhance ment of the gallbladder wall and a small amount of pericholecystic fluid. Gallstones can be occult. N o biliary tree finding seen. Small kidneys are present. Symmetric enhancement pattern with no hydronephrosis or calculi. No mass l esions seen. Trace amount of symmetric perinephric stranding present. Urinary bladder is fully contra cted limiting assessment. Prostate and seminal vesicles show no suspicious findings. No gastric dilatation or gastric wall thickening. No dilated large or small bowel loops. No appendici tis. An acute GI process is not suspected. No free air or pneumatosis. No mass or bulky lymphadenop athy. No hernias identified. No adrenal abnormality. No acute bone findings seen. Small 18 mm or less periportal and peripancreatic lymph nodes are present. There are numerous small l ymph nodes at the gastrohepatic ligament. Lymph nodes up to 1.8 cm noted along the aorta and IVC. Rig ht external iliac lymph nodes are present. Largest is 3 x 1.5 cm. Left common iliac and external good c lymph nodes are present largest measuring 3 x 1.5 cm. Patient has an overall fluid retention patter n in the subcutaneous fatty tissues. There is a mild fluid retention in the peritoneal and retroperit romero spaces along with a trace amount of free intraperitoneal fluid. There is congestion and edema i nto the fatty tissues of the superior scrotum. This area is not fully imaged on this study. The patient has bilateral fluid collections at each inguinal canal both measuring 4.6 cm in diameter. There is a more thickened and shaggy rind around the left groin fluid collection. There are several small lymph nodes in this region. Several surgical clips are present in both inguinal canals. No veno us thrombosis identified. The patient has evidence for clips in this region. The patient may have had prior vascular procedure. Chronic pseudoaneurysm would be possible. The thickened, shaggy appearance of the left collection ra ises concern for infectious/inflammatory process. Bilateral groin abscess would be possible. Abscess is related to a IV drug abuse cannot be excluded. Complicated lympho epithelial cysts or similar proc ess would be possible. These are more typically head and neck in origin. Lymph nodes are relatively p rominent for reactive lymph nodes. Underlying lymphoma or malignant process is certainly possible. IMPRESSION: Bilateral 4.5 centimeter diameter cystic masses are present with thickened, shaggy rind around the left fluid collection. Bilateral surgical clips are present adjacent to these fluid collec tions. 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 Abscess related I V drug abuse would be possible. HIV related lympho epithelial cyst or similar process would be a con sideration. Patient has abnormal inguinal, aortoiliac chain, periaortic and peripancreatic lymph nodes. Lymphoma or other malignant process is certainly possible. Hepatomegaly with heterogeneous liver parenchymal enhancement and subtle capsular nodularity. A focal liver parenchymal lesion is not confirmed. Moderately large bilateral pleural effusions with lung base atelectasis. There is a overall fluid ret ention pattern throughout the peritoneal, retroperitoneal and subcutaneous fatty tissues. Superior scrotal edema is present as well. Scrotum is not fully assessed. Small kidneys showing a symmetric enhancement pattern. No acute finding.
[2018-05-18] MEDS: ACETAMINOPHEN 500 MG TAB PO PRN ×3 (11:10→23:11)
[2018-05-18] MEDS: Levofloxacin 250mg IV 250 MG/50 ML BAG IV SCH (15:19)
[2018-05-18] MEDS: WARFARIN SODIUM 5 MG TAB PO SCH (17:39)
--- NOTE | 2018-05-18 21:00 | PN ---
Subjective: Currently, the patient is lying in bed. He looks comfortable, but he is having pain in both groins. His left groin lymph node opened and it is draining some pus. He had low-grade temperature overnight up to 99.3. We are still not able to obtain a copy of the records from the outside hospital neither copy of the biopsy. Objective: Vital Signs: Blood pressure is 161/54, respiratory rate 17, pulse 105, temperature 98.7, saturating 96%. General: The patient is alert and oriented x3. Does look in mild distress. HEENT: Atraumatic, normocephalic. PERRLA. Oral mucosa moist. Neck: Supple. No JVD. No bruits. Chest: Clear to auscultation. Good air entry. Heart: Regular rate and rhythm. S1, S2 normal. Tachy. ABDOMEN: Soft, nontender. No masses. No hepatosplenomegaly. Positive bowel sounds. Bilateral large very hard lymph nodes in both groins. Easily palpable. Left groin with open wound with some clear fluid discharge. Neurologic: Deferred. Laboratory Data: Labs today, CBC within normal except for hemoglobin at 10, platelet 133, white blood cells of 14.1 with left shift with neutrophil 13.8. Chemistry showed a creatinine of 5.2, BUN of 27. Sodium 133, potassium 3.5. CAT scan of the abdomen that was done yesterday showed bilateral 4.5 cm cystic masses are present with thickened nodes around the left fluid collection, but there are surgical clips present adjacent to this fluid collection. 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 The patient also has lymphadenopathy in the inguinal aortoiliac chain, aortic and peripancreatic lymph node. Hepatomegaly with heterogeneous liver parenchyma enhancement and nodularity noted. Large bilateral pleural effusion with lung base atelectasis. Overall fluid retention pattern throughout the peritoneum, retroperitoneum and subcutaneous fatty tissue. There was severe scrotal edema present as well. Assessment And Plan: 1. Bilateral inguinal adenopathy with diffuse abdominal adenopathy status post a biopsy in [facility] a few days ago. We tried yesterday to obtain copy of the pathology and records but according to the community service officer coordinator due to the weekend schedule, there was no personnel available so we could not receive any records. So we repeated the CT of the abdomen, which showed and confirmed diffuse adenopathy which is very worrisome for lymphoma. We requested surgical consult from General Surgery and Surgery needs records from [place] at this point as well as the pathology report for lymph node biopsy. The patient may have abscess in the groin and he may need to have I and D, but surgeon is worried that the patient may have aneurysm and given the clips in the area on the CAT scan and the patient may need to go back to [place] to the same surgeon who started the procedure initially before he left [place] last week. So far, blood culture is negative. The patient empirically on IV antibiotic with vancomycin, Levaquin, there is low-grade temperature with leukocytosis, which is stable. I think patient will need ID consult given his HIV and complex medical history. We will obtain a consult from Dr. Pelletier in a.m. as well. 2. HIV. ID consult pending. Continue the patient on HIV medication with epivir, ritonavir and lopinavir. 3. Hypertension. Not well controlled. The patient on p.r.n. hydralazine. I will add Norvasc 5 mg today. 4. History of mitral valve replacement. The patient on Coumadin 12.5 mg daily. INR therapeutic that may need to be place on hold. The patient need to switch to heparin drip. If surgery would like to proceed with I and D, which we are not sure at this point. 5. History of hyperlipidemia, on statin. 6. History of end-stage renal disease, on hemodialysis. The patient received hemodialysis yesterday. He will receive again on Saturday. 7. No need for DVT prophylaxis. The patient is therapeutic on Coumadin. BERENICE/JANET Voice ID: [id number] Report ID: [id number] [place]
[2018-05-18] MEDS: ATORVASTATIN 20 MG TAB PO SCH (21:29)
[2018-05-18] MEDS: KALETRA PO SCH (21:30)
[2018-05-18] MEDS: ISENTRESS 400 MG PO SCH (21:30)
[2018-05-19 00:09] VITALS: O2SAT 95
[2018-05-19 04:52] VITALS: BMI 26.0
[2018-05-19] MEDS: ISENTRESS 400 MG PO SCH (11:45)
[2018-05-19] MEDS: KALETRA PO SCH (11:50)
[2018-05-19] MEDS: METOPROLOL XL 25 MG TAB PO SCH (11:51)
[2018-05-19] MEDS: ACETAMINOPHEN 500 MG TAB PO PRN (11:51)
--- NOTE | 2018-05-19 13:57 | P.DS ---
Admission Date: 05/17/18 Discharge Date: 05/19/18 Reason for Admission: Bacteremia in a patient with HIV Consultations: General Surgery Brief History of Present Illness: Patient is a 63-year-old gentleman with a history of HIV who presents to our hospital after leaving against medical advice from a facility in [facility]. He was told after he had left that his blood cultures had come back positive and he needed to go to the closest emergency room. In the emergency room patient was afebrile. He did not have a white blood cell count either. He was probably seen by the ER physician and it was at that time decision was made to admit and try to get records from the outside facility so we can see what all was looked into. We will also get our infectious disease doctor to see the patient as well. Patient has had labs performed. And will repeat this in the morning. Hospital Course: Discharge Diagnosis: 1.Bilateral inguinal adenopathy with diffuse abdominal adenopathy 2.HIV. 3.Hypertension. 4.History of mitral valve replacement. 5.History of hyperlipidemia, on statin. 6.History of end-stage renal disease, on hemodialysis. Hospital Course Patient is a 63-year-old male with significant past medical history who was admitted to the hospital for bilateral inguinal adenopathy with diffuse abdominal adenopathy as well. Patient had an abdominal CT done here in the hospital which was consistent with inguinal abscess. General surgery was consulted who recommended the patient needs to get an I and D done once his INR is in the therapeutic ranges. Infectious disease was also consulted here in the hospital. Given the fact that patient has underlying HIV with Kaposi sarcoma which may complicate the case further and given that we do not have adequate specialty coverage here in the hospital with HIV specialist team. Patient at this time [place] to be transferred to a higher level of care. [facility] was contacted patient was accepted by the hospitalist group there for further care. Patient while here in the hospital was kept on IV vancomycin and Levaquin for possible bacterial infection in the bilateral inguinal area. Of note patient states that his bilateral inguinal adenopathy has been going on for a year and a half. Patient was seen at [facility] where he had his atrial valve replaced and ever since then he has been noted that he has had bilateral inguinal adenopathy which has gotten progressively worse. Patient did have a biopsy done at [facility] however the pathology reports are pending at this time. Patient stated that his abscess has also started from that time. Patient went to [facility] in [facility] after he did not have a his pathology results and had a fever of 108.0. At the [facility] patient states that he only had IV antibiotics and then left AMA. Patient came here to this hospital as he lives in [facility] and started noticing that he was having further worsening of his inguinal area along with fever and thus he decided to come to the hospital for further workup. Vital Signs/Physical Exam: Temp Pulse Resp BP Pulse Ox 99.5 F 73 18 148/63 H 93 05/19/18 08:00 05/19/18 11:51 05/19/18 08:00 05/19/18 11:51 05/19/18 08:00 General: Alert, In no apparent distress HEENT: Atraumatic, PERRLA, EOMI Neck: Supple, JVD not distended Respiratory: Clear to auscultation bilaterally, Normal air movement Cardiovascular: Regular rate/rhythm, Normal S1 S2 Gastrointestinal: Normal bowel sounds, No tenderness Musculoskeletal: No tenderness Integumentary: No rashes Neurological: Normal speech, Normal tone, Normal affect Lymphatics: No axilla or inguinal lymphadenopathy Laboratory Data at Discharge: WBC 14.1 K/uL (4.3-10.9) H 05/18/18 04:39 Hgb 10.0 g/dL (13.6-17.9) L 05/18/18 04:39 Hct 29.2 % (39.6-49.0) L 05/18/18 04:39 Plt Count 133 K/uL (152-406) L D 05/18/18 04:39 PT 22.8 SECONDS (9.5-12.5) H 05/17/18 05:23 INR 1.92 05/17/18 05:23 APTT 39.5 SECONDS (24.3-36.9) H 05/17/18 05:23 Sodium 133 mmol/L (136-145) L 05/18/18 04:39 Potassium 3.5 mmol/L (3.5-5.1) 05/18/18 04:39 BUN 27 mg/dL (7-18) H 05/18/18 04:39 Creatinine 5.20 mg/dL (0.55-1.3) H* D 05/18/18 04:39 Glucose 90 mg/dL (74-106) 05/18/18 04:39 Phosphorus 3.0 mg/dL (2.5-4.9) 05/18/18 04:39 Magnesium 2.1 mg/dL (1.8-2.4) 05/18/18 04:39 Total Bilirubin 1.0 mg/dL (0.2-1.0) 05/18/18 04:39 AST 17 U/L (15-37) 05/18/18 04:39 ALT 18 U/L (12-78) 05/18/18 04:39 Alkaline Phosphatase 50 U/L (45-117) 05/18/18 04:39 Lipase 372 U/L (73-393) 05/16/18 22:21 Home Medications: Lamivudine [Epivir] 2.5 ml PO BID 02/18/18 Atorvastatin Calcium [Lipitor] 20 mg PO BEDTIME 05/17/18 Cholecalciferol (Vitamin D3) [Vitamin D3] 50,000 units PO EVERY 7TH DAY Lopinavir/Ritonavir [Kaletra 200-50 MG Tablet*] 2 tab PO BID 05/17/18 Metoprolol Succinate [Toprol Xl] 25 mg PO DAILY 05/17/18 Raltegravir Potassium [Isentress*] 400 mg PO BID 05/17/18 Warfarin Sodium [Coumadin*] 12.5 mg PO DAILY 5 PM 05/17/18 Aspirin Chewable [Aspirin Chewable*] 81 mg PO DAILY 05/18/18 Docusate Sodium [Dok] 100 mg PO BID 05/18/18 Folic Acid/Vit Bcomp,C [Daija-Kodak Tablet] 1 tab PO DAILY 05/18/18
[2018-05-19 14:17] VITALS: BP 185/86; TEMP 97.3
--- NOTE | 2018-05-19 15:33 | CON ---
Date of Consultation: 05/18/2018 Brief History Of Present Illness: The patient is a 63-year-old gentleman, who prese nts to the hospital with a history significant for HIV, hepatitis C, diabetes, hypertension, cirrhosi s, end-stage renal disease, and a mitral valve replacement, who was recently at [facility] with possible bacteremia and infection by his report. He is a very poor historian and as such the i nformation is very difficult to obtain. He states, however, that he continues to have weakness, fati nika, and in general does not feel well. He states he left AMA from [facility], as he felt he was not getting appropriate treatment there. He has very poor insight into what procedures were done to him other than he had groin surgery in both of his groins. He states that since then he has had swelling and inflammation of this area and the left groin area has started draining spontaneous m urky fluid. Past Medical History: Significant for cirrhosis, diabetes, hepatitis C, HIV, hyperlipidemia, Kaposi sarcoma of the left leg, end-stage renal disease on dialysis Saturday, , Saturday. Past Surgical History: He has had a heart valve replacement. He has had a cardiac catheterization. He has had bilateral groin surgery. He is not sure if this is biopsy over some other purpose. He h as had an AV fistula in the left arm. Home Medications: Include Epivir, Lipitor, vitamin D3, Kaletra, Toprol, Coumadin 12.5 mg p.o. daily, and Isentress that is raltegravir potassium. Allergies: CODEINE, WHICH CAUSE ITCHING. Social History: He denies smoking, alcohol, or recreational drug use. Review of Systems: Ten-point review of systems other than HPI, denies. Physical Examination: At the time of my examination: GENERAL: He is awake, alert, and oriented PSYCHIATRIC: He is appropriate and conversive. VITAL SIGNS: His BMI is 26. His blood pressure was 161/54, heart rate 105, respiratory rate 17, tem perature 98.7. HEENT: Normocephalic. His sclerae were anicteric. His mucous membranes are moist. His oropharynx is clear. Neck: Supple. No JVD. CHEST: Normal expansion excursion. CARDIOVASCULAR: Regular rhythm. Mild tachycardic rate. Abdomen: Soft, nontender, nondistended. Focused examination of the groins shows a draining left sin us consistent with a recently drained abscess. The right groin has some fullness and tenderness to i t consistent with a fluid collection in this area. It has mild tenderness. There is no cellulitis o verlying. There are scars overlying these, which appear to be reasonably well healed. EXTREMITIES: He has a large cystic mass on the medial aspect of the right lower extremity along the medial aspect of the tibia approximately midway between his legs. It is a large mass of approximatel y 10-15 cm in size. He has swelling in bilateral lower extremities. He has a fistula in the upper e xtremity for dialysis access. SKIN: Otherwise warm and dry. Laboratory Data: Reveals a white blood cell count of 14.1, hemoglobin is 10.0, hematocrit of 29.2, p latelet count is 133, neutrophils are 83%. His sodium 133, potassium is 3.5, chloride 97, carbon ike xide 26, BUN 27, creatinine 5.2, glucose is 90, phosphorus 3.2, magnesium 2.1, total bilirubin 1.0, A ST 17, ALT 18, alkaline phosphatase 50. He had coags on 05/17, which were a PT of 22.8, INR 1.92, PT T 39.5. He had imaging performed, which included an abdomen and pelvis CT, which was officially read as bilateral 4.5 cm diameter. Cystic masses are present with thickened shaggy rind around the left fluid collection. Bilateral surgical clips are present adjacent to these fluid collections. 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 Abscess-related IV drug abuse could be possible. HIV-related lymphoepithelioid cystic or similar process would be a conside ration. The patient has abnormal inguinal aortoiliac chain, periaortic, and peripancreatic lymph nod es, lymphoma, or other malignant processes certainly possible. Hepatomegaly with heterogeneous liver parenchymal enhancement and subtle capsular nodularity. A focal liver parenchymal lesion is not con firmed. Moderately large bilateral pleural effusions with lung base atelectasis. There is overall f luid retention pattern throughout the peritoneal, retroperitoneal, subcutaneous fatty tissue. Superi or scrotal edema is present as well. Scrotum not fully assessed. Small kidney showing a symmetric e nhancement pattern. No findings. The patient also had an abdomen ultrasound, vascular study, whi ch showed normal renal artery ratios. No renal artery stenosis findings. No hydronephrosis, suspici ous renal parenchymal mass. Medical renal disease is evident. Chest x-ray performed as well on 05/03 4 was officially read as [id number] right and small left pleural effusions are suspected with right basilar atelectasis. Upper lobes appear clear. The heart is uulisp-do-otvuczecqs enlarged. P ostsurgical change involving the chest, upper lobe. This is indicative of pulmonary venous hypertens ion. Assessment And Plan: This is a 63-year-old male, who comes in with multiple medical problems, who perez s bilateral groin collections, one of which is draining spontaneously. I find that these are likely infected collections from recent surgery. I suspect he had a biopsy of these inguinal lymph nodes, b ut I am uncertain of this, as no records are available and the patient is a poor historian. He is cu rrently hypercoagulable and currently taking Coumadin. His Coumadin has been continued throughout hi s admission and as such, he is not a surgical candidate, as he is hypercoagulable from a surgical sta ndpoint. I would recommend transition to a short-term medications such as heparin that can be decrea sed to perform the incision and drainage of these collections with wound packing required in the post operative period; however, given his multiple medical problems, I recommend continued medical managem ent and medical optimization prior to surgical intervention. Thank you for this interesting consult. JARROD/JANET Voice ID: [id number] Report ID: [id number]
--- NOTE | 2018-05-19 20:13 | CON ---
History Of Present Illness: This is a 63-year-old male with significant history of HIV, I was consul jayla for a groin abscess. The patient denies any headache, nausea, vomiting, chest pain, abdominal pa in, constipation, or diarrhea. Complains of discomfort to the suprapubic region with abscesses. Past Medical History: Includes HIV, hepatitis C, diabetes mellitus, hypertension, end-stage renal di sease, Kaposi sarcoma, cirrhosis, AV fistula, mitral valve replacement. Social History: Tobacco negative. Alcohol negative. Family History: Noncontributory. Medication: Levaquin and vancomycin. Review of Systems: A 10-point review was performed. Allergies: CODEINE. Physical Examination: Vital signs: Temperature 97.3, pulse 92, respiration 18, blood pressure 185/86. HEENT: Unremarkable. Neck: Supple. Lungs: Basal crackles. Heart: S1, S2. Regular. Abdomen: Soft, nontender. Bowel sounds positive. Extremity: Suprapubic region tenderness on the left groin area noted with open wound and serosanguin eous discharge. Laboratory Data: WBC 20474, hemoglobin 10, platelets are 133. Chemistry shows sodium 133, potassium 3.5, chloride 97, bicarb 29, BUN 27, creatinine 5.2, glucose is 90. Micro data: Blood cultures are negative for 24 hours. Assessment And Plan: This is a 63-year-old male with multiple medical problems, coming in with supra pubic abscess. Recommend to continue antibiotic Levaquin and vancomycin. Possible surgical debridem ent as the patient is getting transferred to another facility for higher care. We will follow the kizzy ernst closely. Thank you Dr. Nicole for consult. NF/MODL Voice ID: [id number] Report ID: [id number]
--- NOTE | 2018-05-19 20:45 | P.PN ---
Date of Service: 05/19/18 Vital Signs Temp Pulse Resp BP Pulse Ox 97.3 F 92 H 18 185/86 H 98 05/19/18 12:00 05/19/18 12:00 05/19/18 12:00 05/19/18 12:00 05/19/18 12:00 Microbiology Results 05/16/18 20:35 Blood - Blood Aerobic Blood Culture - Preliminary No growth in 24 hours. 05/16/18 20:35 Blood - Blood Anaerobic Blood Culture - Preliminary No growth in 24 hours. 05/16/18 20:51 Blood - Blood Aerobic Blood Culture - Preliminary No growth in 24 hours. 05/16/18 20:51 Blood - Blood Anaerobic Blood Culture - Preliminary No growth in 24 hours. Assessment/ Plan: Nephrology. Still with draining groin abscess. CPS stable without CP or SOB. No acute events overnight. Vitals, medications, blood work and imaging reviewed in the chart. NAD. MMM. Neck supple. CTA. RRR. Soft Abd. No C/C/E. No rash. AAO. Normal speech. A/ ESRD on HD. HTN with CKD. Diastolic CHF, chronic. Anemia in CKD. BEBO/ Secondary HyperPTH. Groin abscess, multiple. P/ Continue current POC and Medications. Agree with abx. Appreciate surgery and ID input. Next HD tomorrow. No NSAIDs. AM labs. Daily weight. Addendum: plan for transfer to medical center due to multiple medical problems.
[2018-05-24] MEDS ORDERED: DRISDOL (VITAMIN D=ERGOCALCIFEROL) 50000 UNIT CAP PO SCH (09:00)
== END 2018-05-19 15:40 | disposition short-term general hospital (02) | DRG 814 ==
LOC: ER 19:37 → ERHOLD 05-17 01:09 → 2ND 05-17 01:33
PROVIDERS: ADMIT Hospitalist; ATTEND Hospitalist
PROC: 5A1D70Z Performance of Urinary Filtration, Intermittent, Less than 6 Hours Per Day (ICD-10-PCS; principal; 2018-05-17)
DX: R59.0 Localized enlarged lymph nodes (principal); N18.6 End stage renal disease; C46.9 Kaposi's sarcoma, unspecified; I13.2 Hypertensive heart and chronic kidney disease with heart failure and with stage 5 chronic kidney disease, or end stage renal disease; I50.32 Chronic diastolic (congestive) heart failure; L02.214 Cutaneous abscess of groin; R78.81 Bacteremia; Z21 Asymptomatic human immunodeficiency virus [HIV] infection status; E78.5 Hyperlipidemia, unspecified; E11.22 Type 2 diabetes mellitus with diabetic chronic kidney disease; Z79.01 Long term (current) use of anticoagulants; Z99.2 Dependence on renal dialysis; Z95.2 Presence of prosthetic heart valve
CPT/HCPCS: 36415; 71045; 74177; 80048; 80053; 80076; 80202; 82962; 83605; 83615; 83690; 83735; 84100; 84145; 84484; 85025; 85610; 85730; 87040; 90935; 93005; 93975; 96361; 96365; 96366; 96367; 99285; J0360; J2543; J3370; J3490; J7030; Q9967

== ENCOUNTER 2018-07-05 21:54 | Emergency (ER) | payer OTHER ==
--- OUTSIDE RECORDS SUMMARY | 2018-07-05 21:58 | XMS REPORT ---
:1955 Author Organization [facility] Address [address] [place] [address] Care Team Providers Name Role Phone UNKNOWN, [...] Facility Department ID 2017-11-18 2017-11-20 [id number] 13:43:00 13:54:00 MAYLIN 2017-11-07 2017-11-07 Emergency E [facility] [id number] 20:22:00 20:22:00 2017-10-06 2017-10-06 [facility] [id number] 14:25:00 14:25:00 NEEL Results Test Description Test Time Test Comments Text Results Atomic Results Result Comments CD4/CD8 Ratio Profile 2017-11-27 08:04:00 Test Item Value Reference Range Comments Absolute CD 4 [place] (test cesb=440677) 188 /uL 359-1519 % CD 4 Pos. Lymph. (test pijh=506216) 37.6 % 30.8-58.5 Abs. CD 8 Suppressor (test ekfb=385495) 183 /uL 109-897 % CD 8 Pos. Lymph. (test mipq=041679) 36.6 % 12.0-35.5 CD4/CD8 Ratio (test zpea=390384) 1.03 0.92-3.72 WBC (test mdtp=319272) 5.0 x10E3/uL 3.4-10.8 RBC (test mgti=019056) 3.00 x10E6/uL 4.14-5.80 Hemoglobin (test sdjv=882392) 9.6 g/dL 13.0-17.7 Hematocrit (test alyw=831616) 27.6 % 37.5-51.0 MCV (test ampo=026432) 92 fL 79-97 MCH (test cgoc=376457) 32.0 pg 26.6-33.0 MCHC (test flda=995044) 34.8 g/dL 31.5-35.7 RDW (test epnk=467923) 15.5 % 12.3-15.4 Platelets (test gwdd=127676) 113 x10E3/uL 150-379 Neutrophils (test vmly=453329) 84 % Not Estab. Lymphs (test lhbr=336589) 9 % Not Estab. Monocytes (test rash=628805) 6 % Not Estab. Eos (test dlgl=407179) 1 % Not Estab. Basos (test zuzj=463655) 0 % Not Estab. Neutrophils (Absolute) (test lmwp=758270) 4.2 x10E3/uL 1.4-7.0 Lymphs (Absolute) (test urbw=532305) 0.5 x10E3/uL 0.7-3.1 Monocytes(Absolute) (test cmjj=055622) 0.3 x10E3/uL 0.1-0.9 Eos (Absolute) (test jfuv=539048) 0.0 x10E3/uL 0.0-0.4 Baso (Absolute) (test mhqu=314129) 0.0 x10E3/uL 0.0-0.2 Immature Granulocytes (test fqcw=557420) 0 % Not Estab. Immature Grans (Abs) (test hshp=212911) 0.0 x10E3/uL 0.0-0.1 Culture, Blood [id number] 08:42:00Specimen: BloodCollected: 11/19/2017 00 :21 Status: Final Last Updated: 11/24/2017 08:42 Culture Result (Final) ( Final) No Growth After 5 DaysCulture, Blood [id number] 08:42: 00Specimen: BloodCollected: 11/18/2017 20:30 Status: Final Last Updated: 08:42 Culture Result (Final) (Final) No Growth After 5 DaysPOC Glucose, [id number] 11:51:00 Test Item Value Reference Range Comments POC Glucose (test 148 mg/dL 70-115 Notify RN or MDIf you consider code=POCGLUC) your patient critically ill, the Madeline Accu-Chek InformII metershould not be used for Glucose determinations.Draw a venous Glucose and send to the Main Lab for Analysis. CK [id number] 07:42:00 Test Item Value Reference Range Comments CK (test code=CK) na U/L 39-308 CKMB (test code=CKMB) 4.0 ng/mL 0.0-4.9 CKMB% (test code=CKMBP) 0.0 % 0.0-3.4 Iwz-[id number] 07:39:00 Test Item Value Reference Range Comments NT ProBnp (test code=PBNP) >47646 pg/mL 0-124 Troponin [id number] 07:18:00 Test Item Value Reference Range Comments Troponin T (test code=MADHAV) 0.103 ng/mL 0.000-0.090 Lactate Lavyswsbgvfxq2979-00-64 07:18:00 Test Item Value Reference Range Comments LDH (test code=LDH) 271 U/L 135-225 POC Glucose, [id number] 06:50:00 Test Item Value Reference Range Comments POC Glucose (test 154 mg/dL 70-115 Notify RN or MDIf you consider code=POCGLUC) your patient critically ill, the [place]eline Accu-Chek InformII metershould not be used for Glucose determinations.Draw a venous Glucose and send to the Main Lab for Analysis. CK [id number] 01:08:00 Test Item Value Reference Range Comments CK (test code=CK) na U/L 39-308 CKMB (test code=CKMB) 3.6 ng/mL 0.0-4.9 CKMB% (test code=CKMBP) 0.0 % 0.0-3.4 Troponin [id number] 01:08:00 Test Item Value Reference Range Comments Troponin T (test code=MADHAV) 0.106 ng/mL 0.000-0.090 XR CHEST 1 [id number] 21:02:01CLINICAL INFORMATION: Vascular congestion.Dictation Location: R 16Comparison: 11/18/2017 showed perihilar and lower lobe opacities. Technique: Portable AP 1951 hoursFINDINGS: Monitoring electrodes overlie the chest wall. Cardiomegaly withincreasing central vascular interstitial prominence with bibasilaropacities and effusions. No interval bone changes.IMPRESSION: Changes could indicate worsening cardiac decompensation orfluid overload.POC Glucose, [id number] 20:15:00 Test Item Value Reference Range Comments POC Glucose (test 139 mg/dL 70-115 If you consider your patient code=POCGLUC) critically ill, the [place]eline Accu-Chek InformII metershould not be used for Glucose determinations.Draw a venous Glucose and send to the Main Lab for Analysis. POC Glucose, [id number] 16:52:00 Test Item Value Reference Range Comments POC Glucose (test 123 mg/dL 70-115 If you consider your patient code=POCGLUC) critically ill, the [place]eline Accu-Chek InformII metershould not be used for Glucose determinations.Draw a venous Glucose and send to the Main Lab for Analysis. POC Glucose, [id number] 12:04:00 Test Item Value Reference Range Comments POC Glucose (test 140 mg/dL 70-115 If you consider your patient code=POCGLUC) critically ill, the Madeline Accu-Chek InformII metershould not be used for Glucose determinations.Draw a venous Glucose and send to the Main Lab for Analysis. POC Glucose, [id number] 08:01:00 Test Item Value Reference Range Comments POC Glucose (test 126 mg/dL 70-115 If you consider your patient code=POCGLUC) critically ill, the Madeline Accu-Chek InformII metershould not be used for Glucose determinations.Draw a venous Glucose and send to the Main Lab for Analysis. CK [id number] 06:03:00 Test Item Value Reference Range Comments CK (test code=CK) na U/L 39-308 CKMB (test code=CKMB) 2.8 ng/mL 0.0-4.9 CKMB% (test code=CKMBP) 0.0 % 0.0-3.4 Basic Metabolic [id number] 05:51:00 Test Item Value Reference Range Comments [...] race is not provided, and the patient isAfrican-Tai[place]ese, multiply by 1.212. If sex is not provided, and thepatient is female, multiply by 0.742. Results for patients <18 years ofage have not been validated by the MDRD study and should be interpretedwith caution.eGFR Result Interpretation:eGFR > or=60 is in the Normal RangeeGFR < 60 may mean kidney diseaseeGFR < 15 may mean kidney failureRanges recommended by the National Kidney Foundation,http://nkdep.nih .gov Magnesium, [id number] 05:51:00 Test Item Value Reference Range Comments Magnesium (test code=MG) 1.9 mg/dL 1.7-2.5 [id number] 05:51:00 Test Item Value Reference Range Comments Phosphorus (test code=PO4) 3.8 mg/dL 2.70-4.50 Qty-[id number] 05:51:00 Test Item Value Reference Range Comments NT ProBnp (test code=PBNP) >27710 pg/mL 0-124 Troponin [id number] 05:51:00 Test Item Value Reference Range Comments Troponin T (test code=MADHAV) 0.126 ng/mL 0.000-0.090 CBC with Deblngfpojeo6175-65-72 05:34:00 Test Item Value Reference Range Comments [...] Lymph Abs (test code=ALYMPH) 0.4 K/cumm 0.5-4.6 [place] Abs (test code=AMONO) 0.6 K/cumm 0.0-1.2 Eos Abs (test code=AEOS) 0.13 K/cumm 0.00-0.74 Baso Abs (test code=ABASO) 0.0 K/cumm 0.00-0.21 CK [id number] 18:39:00 Test Item Value Reference Range Comments CK (test code=CK) HIDE U/L 39-308 CKMB (test code=CKMB) 3.2 ng/mL 0.0-4.9 CKMB% (test code=CKMBP) HIDE % 0.0-3.4 Troponin [id number] 18:39:00 Test Item Value Reference Range Comments Troponin T (test code=MADHAV) 0.126 ng/mL 0.000-0.090 Hep B Surface [id number] 18:39:00 Test Item Value Reference Range Comments Hep Bs Ag (test code=HBSAG) Nonreactive Non-Reactive POC Glucose, [id number] 16:47:00 Test Item Value Reference Range Comments POC Glucose (test 143 mg/dL 70-115 If you consider your patient code=POCGLUC) critically ill, the [place]eline Accu-Chek InformII metershould not be used for Glucose determinations.Draw a venous Glucose and send to the Main Lab for Analysis. XR CHEST 1 [id number] 08:18:18EXAM: Portable AP chest x-rayLOCATION: R16 INDICATION: CoughCOMPARISON: 11/07/2017FINDINGS:The cardiacsilhouette is stable enlargement. There are increasinginterstitial opacities, most evident in the perihilar regions and lowerlobes. There is blunting of the costophrenic angles bilaterally. Thereis no discernible pneumothorax.IMPRESSION:Increasing perihilar and bilateral lower lobe opacities compared to theprior exam dated 11/07. Findings may represent pulmonary edema orpneumonia in the appropriate clinical setting.Comprehensive Metabolic [id number] 08:05:00 Test Item Value Reference Range Comments [...] race is not provided, and the patient isAfrican-Taiwanese, multiply by 1.212. If sex is not provided, and thepatient is female, multiply by 0.742. Results for patients <18 years ofage have not been validated by the MDRD study and should be interpretedwith caution.eGFR Result Interpretation:eGFR > or=60 is in the Normal RangeeGFR < 60 may mean kidney diseaseeGFR < 15 may mean kidney failureRanges recommended by the National Kidney Foundation,http://nkdep.nih .gov CK [id number] 08:05:00 Test Item Value Reference Range Comments CK (test code=CK) 149 U/L 39-308 Troponin [id number] 08:02:00 Test Item Value Reference Range Comments Troponin T (test code=MADHAV) 0.114 ng/mL 0.000-0.090 Vei-[id number] 08:02:00 Test Item Value Reference Range Comments NT ProBnp (test code=PBNP) >45313 pg/mL 0-124 CBC with Lrciqheejblj9377-81-83 07:53:00 Test Item Value Reference Range Comments [...] Lymph Abs (test code=ALYMPH) 0.9 K/cumm 0.5-4.6 [place] Abs (test code=AMONO) 0.4 K/cumm 0.0-1.2 Eos Abs (test code=AEOS) 0.11 K/cumm 0.00-0.74 Baso Abs (test code=ABASO) 0.0 K/cumm 0.00-0.21 XR CHEST 1 [id number] 21:38:09EXAM: CHEST ONE VIEWINDICATION: CoughCOMPARISON: October 06, 2017TECHNIQUE: AP view of the chest.FINDINGS: The cardiomediastinal silhouette is unchanged. Mild congestive changesbilaterally. No pneumothorax or pleural effusion is identified. Theosseous structures are unremarkable.IMPRESSION: Diffuse congestive changes bilaterally.LOCATION: R16US DUPLX EXT VEINS COMPRXavier, [id number] 20:09:34AFTER HOURS SERVICE ON: 10/06/2017 8: 09 PMRIGHT Lower Extremity Venous Duplex Doppler ExaminationLocation Code M71Cvichho: SwellingTechnique: Real-time castillo scale, Doppler spectral analysis [...] imaged vessels.AFTER HOURS SERVICE ON: 10/06/2017 8:09 [facility] Lower Extremity Venous Duplex Doppler ExaminationLocation Code N06Gtcduji : SwellingTechnique: Real-time castillo scale, Doppler spectral [...] of DVT in the imaged vessels.Comprehensive Metabolic [id number] 17 :40:00 Test Item Value Reference Range [...] race is not provided, and the patient isAfrican-Taiwanese, multiply by 1.212. If sex is not [...] the National Kidney Foundation,http://nkdep.nih .gov CBC with [id number] 17:15:00 Test Item Value Reference Range Comments [...] Lymph Abs (test code=ALYMPH) 1.3 K/cumm 0.5-4.6 [place] Abs (test code=AMONO) 0.6 K/cumm 0.0-1.2 Eos Abs (test code=AEOS) 0.12 K/cumm 0.00-0.74 Baso Abs (test code=ABASO) 0.0 K/cumm 0.00-0.21 XR CHEST 1 [id number] 16:56:42CHEST 1 VIEW: [id number]: coughCOMPARISON: Sep 24, 2017FINDINGS:The heart is enlarged. There is engorgement of the central pulmonaryvasculature. There are patchy bibasilar areas of infiltrate oratelectasis with bilateral effusions. No pneumothorax is present. IMPRESSION: 1. Patchy areas of atelectasis or infiltrate in the lung bases withsmall bilateral effusions and vascular congestion most likely secondaryto CHF.Culture, Blood [id number] 14:58:00Specimen: BloodCollected: 2017 13:05 Status: Final Last Updated: 09/29/2017 14:58 (1) ER Bed 1 Culture Result (Final) (Final) No Growth After 5 DaysCulture, Blood [id number] 14:58:00Specimen: BloodCollected: 09/24/2017 12:50 Status: Final Last Updated: 09/29/2017 14:58 (1) ER Bed 1 Culture Result (Final) (Final) No Growth After 5 DaysPOC Glucose, [id number] 10:54:00 Test Item Value Reference Range Comments POC Glucose (test 168 mg/dL 70-115 If you consider your patient code=POCGLUC) critically ill, the [facility] Accu-Chek InformII metershould not be used for Glucose determinations.Draw a venous Glucose and send to the Main Lab for Analysis. POC Glucose, [id number] 07:16:00 Test Item Value Reference Range Comments POC Glucose (test 143 mg/dL 70-115 If you consider your patient code=POCGLUC) critically ill, the [place]eline Accu-Chek InformII metershould not be used for Glucose determinations.Draw a venous Glucose and send to the Main Lab for Analysis. CBC with [id number] 07:15:00 Test Item Value Reference Range Comments [...] Lymph Abs (test code=ALYMPH) 1.3 K/cumm 0.5-4.6 [place] Abs (test code=AMONO) 0.7 K/cumm 0.0-1.2 Eos Abs (test code=AEOS) 0.07 K/cumm 0.00-0.74 Baso Abs (test code=ABASO) 0.0 K/cumm 0.00-0.21 Magnesium, [id number] 07:03:00 Test Item Value Reference Range Comments Magnesium (test code=MG) 2.0 mg/dL 1.7-2.5 Basic Metabolic [id number] 07:03:00 Test Item Value Reference Range Comments [...] race is not provided, and the patient isAfrican-Taiwanese, multiply by 1.212. If sex is not [...] the National Kidney Foundation,http://nkdep.nih .gov POC Glucose, [id number] 21:40:00 Test Item Value Reference Range Comments POC Glucose (test 129 mg/dL 70-115 If you consider your patient code=POCGLUC) critically ill, the [facility]eline Accu-Chek InformII metershould not be used for Glucose determinations.Draw a venous Glucose and send to the Main Lab for Analysis. Hep B Surface [id number] 18:36:00 Test Item Value Reference Range Comments Hep Bs Ag (test code=HBSAG) Nonreactive Non-Reactive POC Glucose, [id number] 10:51:00 Test Item Value Reference Range Comments POC Glucose (test 216 mg/dL 70-115 If you consider your patient code=POCGLUC) critically ill, the Madeline Accu-Chek InformII metershould not be used for Glucose determinations.Draw a venous Glucose and send to the Main Lab for Analysis. POC Glucose, [id number] 07:57:00 Test Item Value Reference Range Comments POC Glucose (test 164 mg/dL 70-115 If you consider your patient code=POCGLUC) critically ill, the Madeline Accu-Chek InformII metershould not be used for Glucose determinations.Draw a venous Glucose and send to the Main Lab for Analysis. POC Glucose, [id number] 19:47:00 Test Item Value Reference Range Comments POC Glucose (test 140 mg/dL 70-115 Notify RN or MDIf you consider code=POCGLUC) your patient critically ill, the [facility]eline Accu-Chek InformII metershould not be used for Glucose determinations.Draw a venous Glucose and send to the Main Lab for Analysis. Troponin [id number] 19:36:00 Test Item Value Reference Range Comments Troponin T (test code=MADHAV) 0.121 ng/mL 0.000-0.090 CK [id number] 19:25:00 Test Item Value Reference Range Comments CK (test code=CK) 160 U/L 39-308 The value HIDE originally released by [employer] on 09/25/2017 19:12 waschanged to 160 by [employer] on 09/25/2017 19:24 CKMB (test code=CKMB) 3.0 ng/mL 0.0-4.9 CKMB% (test code=CKMBP) 1.9 % 0.0-3.4 The value HIDE originally released by [employer] on 09/25/2017 19:12 waschanged to 1.9 by [employer] on 09/25/2017 19:24 POC Glucose, [id number] 16:42:00 Test Item Value Reference Range Comments POC Glucose (test 123 mg/dL 70-115 If you consider your patient code=POCGLUC) critically ill, the [place]eline Accu-Chek InformII metershould not be used for Glucose determinations.Draw a venous Glucose and send to the Main Lab for Analysis. POC Glucose, [id number] 12:09:00 Test Item Value Reference Range Comments POC Glucose (test 141 mg/dL 70-115 If you consider your patient code=POCGLUC) critically ill, the Madeline Accu-Chek InformII metershould not be used for Glucose determinations.Draw a venous Glucose and send to the Main Lab for Analysis. Hep B Surface [id number] 07:59:00 Test Item Value Reference Range Comments Hep Bs Ag (test code=HBSAG) Nonreactive Non-Reactive CK [id number] 07:43:00 Test Item Value Reference Range Comments CK (test code=CK) n/a U/L 39-308 CKMB (test code=CKMB) 2.4 ng/mL 0.0-4.9 CKMB% (test code=CKMBP) 0.0 % 0.0-3.4 Troponin [id number] 07:38:00 Test Item Value Reference Range Comments Troponin T (test code=MADHAV) 0.134 ng/mL 0.000-0.090 Thyroid Stimulating Hormone (TSH)2017-09-25 07:38:00 Test Item Value Reference Range Comments TSH (test code=TSH) 1.10 mIU/mL 0.270-4.200 Tfdocqehjm0874-74-83 07:38:00 Test Item Value Reference Range Comments Phosphorus (test code=PO4) 3.4 mg/dL 2.70-4.50 Comprehensive Metabolic [id number] 07:38:00 Test Item Value Reference Range Comments [...] race is not provided, and the patient isAfrican-Taiwanese, multiply by 1.212. If sex is not provided, and thepatient is female, multiply by 0.742. Results for patients <18 years ofage have not been validated by the MDRD study and should be interpretedwith caution.eGFR Result Interpretation:eGFR > or=60 is in the Normal RangeeGFR < 60 may mean kidney diseaseeGFR < 15 may mean kidney failureRanges recommended by the National Kidney Foundation,http://nkdep.nih .gov Magnesium, [id number] 07:38:00 Test Item Value Reference Range Comments Magnesium (test code=MG) 2.0 mg/dL 1.7-2.5 CK [id number] 07:31:00 Test Item Value Reference Range Comments CK (test code=CK) 159 U/L 39-308 Lipid [id number] 07:31:00 Test Item Value Reference Range Comments Cholesterol (test 118 mg/dL 0-200 code=CHOL) Triglycerides (test 170 mg/dL 9-200 code=TRIG) HDL (test code=HDL) 49 mg/dL 40-60 Chol/HDL (test 2.4 Ratio 0.0-5.0 code=CHOLPHDL) LDL, Calculated (test 35 0-130 (NOTE)RISK OF HEART code=LDLC) DISEASEPublished by Taiwanese Heart AssociationAnalyte Optimal Boderline Increased RiskCHOL <200 200-239 >240TRIG <150 150-199 >200HDL Male: >60 <40HDL Female: >60 <50LDL <100 130-159 >160LDL NEAR OPTIMAL IS 100-129 VLDL (test code=VLDL) 34 mg/dL 5-40 LDL/HDL (test code=LDLPHDL) 1 Glycosylated [id number] 07:24:00 Test Item Value Reference Range Comments HBA1c (test code=HBA1C) 5.0 % 4.8-5.9 CBC with Xnpbbpklqnhd4999-12-25 07:20:00 Test Item Value Reference Range Comments [...] Lymph Abs (test code=ALYMPH) 0.8 K/cumm 0.5-4.6 [place] Abs (test code=AMONO) 0.5 K/cumm 0.0-1.2 Eos Abs (test code=AEOS) 0.10 K/cumm 0.00-0.74 Baso Abs (test code=ABASO) 0.0 K/cumm 0.00-0.21 POC Glucose, [id number] 07:03:00 Test Item Value Reference Range Comments POC Glucose (test 147 mg/dL 70-115 If you consider your patient code=POCGLUC) critically ill, the [place] Accu-Chek InformII metershould not be used for Glucose determinations.Draw a venous Glucose and send to the Main Lab for Analysis. POC Glucose, [id number] 22:05:00 Test Item Value Reference Range Comments POC Glucose (test 134 mg/dL 70-115 If you consider your patient code=POCGLUC) critically ill, the [place] Accu-Chek InformII metershould not be used for Glucose determinations.Draw a venous Glucose and send to the Main Lab for Analysis. Blood Gas+Lytes+Glu+Ca+Hgb+Hct+[id number] 18:31:00 Test Item Value Reference Range Comments [...] Celcius code=PTTEMP) Comment (test code=COMMENT) [email or web address] Puncture Site (test code=PUNSITE) Radial. R Drawing Tech ID (test medel fi code=DRAWTECH) iPAP (test code=IPAP) 0 cmH2O Respiratory Rate (test code=RESP 0 RATE) Lactic Acid, Blood Gas (test 0.4 mmol/L code=BGLA) CT CHEST W/O [id number] 16:48:03CT CHEST W/O CONTRASTLOCATION CODE: R16 HISTORY: [...] bilateral axillary, prevascular, andparatracheal lymph nodes.Influenza B [id number] 14:36:00Specimen: NasalCollected: 09/24/2017 14:04 Status: Final Last [...] Culture of negative samples is recommended.Influenza A [id number] 14:34:00Specimen: NasalCollected: 09/24/2017 14:04 Status: Final Last [...] Culture of negative samples is recommended.Comprehensive Metabolic [id number] 13:54:00 Test Item Value Reference Range Comments [...] race is not provided, and the patient isAfrican-Taiwanese, multiply by 1.212. If sex is not provided, and thepatient is female, multiply by 0.742. Results for patients <18 years ofage have not been validated by the MDRD study and should be interpretedwith caution.eGFR Result Interpretation:eGFR > or=60 is in the Normal RangeeGFR < 60 may mean kidney diseaseeGFR < 15 may mean kidney failureRanges recommended by the National Kidney Foundation,http://nkdep.nih .gov Troponin [id number] 13:54:00 Test Item Value Reference Range Comments Troponin T (test code=MADHAV) 0.124 ng/mL 0.000-0.090 Ide-[id number] 13:54:00 Test Item Value Reference Range Comments NT ProBnp (test code=PBNP) >07777 pg/mL 0-124 CK [id number] 13:54:00 Test Item Value Reference Range Comments CK (test code=CK) 222 U/L 39-308 CKMB (test code=CKMB) 3.1 ng/mL 0.0-4.9 CKMB% (test code=CKMBP) 1.4 % 0.0-3.4 CK [id number] 13:54:00 Test Item Value Reference Range Comments CK (test code=CK) 222 U/L 39-308 Partial Thromboplastin [id number] 13:43:00 Test Item Value Reference Range Comments aPTT (test code=PTT) 35.70 seconds 24.39-37.25 Prothrombin [id number] 13:43:00 Test Item Value Reference Range Comments PT (test code=PT) 11.30 seconds 9.78-13.35 INR (test code=INR) 0.99 Ratio 0.6-1.2 Lactic Acid [id number] 13:41:00 Test Item Value Reference Range Comments Lactic Acid, Bld (test code=LAC) 1.3 mmol/L 0.5-1.9 CBC with [id number] 13:32:00 Test Item Value Reference Range Comments [...] Lymph Abs (test code=ALYMPH) 1.2 K/cumm 0.5-4.6 [place] Abs (test code=AMONO) 0.6 K/cumm 0.0-1.2 Eos Abs (test code=AEOS) 0.23 K/cumm 0.00-0.74 Baso Abs (test code=ABASO) 0.0 K/cumm 0.00-0.21 XR CHEST 1 [id number] 12:50:14XR CHEST 1 VIEWLOCATION: [id number]: None.INDICATION: CoughDISCUSSION:A single portable chest radiograph was [...]
--- OUTSIDE RECORDS SUMMARY | 2018-07-05 21:58 | XMS REPORT ---
:1955 Author Organization [facility] Address Unavailable , Allergies, Adverse [...] Patient Date Date Name Instruction AMLODIPINE AMLODIPINE [id number] Active Mo Active BESYLATE 10 MG BESYLATE Dicks OD ORAL TABLET CALCIUM ACETATE CALCIUM ACETATE 67875989071 Active Mo Active (PHOS BINDER) (PHOS BINDER) Dicks OD 667 MG ORAL CAPSULE CRESTOR 5 MG ROSUVASTATIN 51809116939 Active Mo Active ORAL TABLET CALCIUM Dicks OD EPIVIR SOLUTION LAMIVUDINE SOLN 71775552490 Active Mo Active Dicks OD ISENTRESS RALTEGRAVIR 95330516419 Active Mo Active TABLET POTASSIUM TABS Dicks OD KALETRA TABLET LOPINAVIR-RITONAVI 00741053937 Active Mo Active R TABS Dicks OD LAMIVUDINE LAMIVUDINE TABS 78397617560 Active Mo Active TABLET Dicks OD PROAIR HFA ALBUTEROL SULFATE 92684833560 Active Mo Active AEROSOL AERS Dicks OD SOLUTION PEDRO-EAMON RX B-COMPLEX W/ C & 87936090306 Active Mo Active TABLET FOLIC ACID TABS Dicks OD VITAMIN D2 ERGOCALCIFEROL 93926585930 Active Mo Active TABLET TABS Dicks OD Diagnostic Results Date Name Value Unit Range Description Append: Eye Exam - Hematology T-helper cells (CD4) count 602 uL Append: Eye Exam - Serology HIV-1RNA, serum, by PCR, quantitative 20 {Copies}/mL Procedures Code Procedure Name Date Entry Date Standard Description CPT-06119 Dispensing Visit (UNLIVSTED OPHTHALMOLOGICAL 10:14:39 CDT SERVICE/PROCEDURE) CPT-75423 Est Patient Comprehensive Opt - 10583 15:29:32 CDT CPT-04044 New Patient Intermediate Opt - 10200 14:28:41 CDT
[2018-07-05 23:18] LABS: Absolute Monocytes 1.1 K/uL (0.1-1.3); Absolute Neutrophil 4.3 K/uL (1.8-8.0); Basophils % 0.6 % (0-1.3); Eosinophils % 1.6 % (0-4.4); Hematocrit 32.9 % (39.6-49.0); MCV 98.8 fL (80-100); MPV 7.3 fL (7.6-11.3); Monocytes % 16.6 % (3.3-12.3); RBC Red Blood Cell Count 3.33 M/uL (4.33-5.43)
[2018-07-05 23:32] LABS: Potassium 3.8 mmol/L (3.5-5.1)
--- NOTE | 2018-07-06 00:14 | ER ---
Nurse's Notes [facility] Name: Salvatore Goldman Age: 63 yrs Sex: Male : 1955 Arrival Date: 07/05/2018 Time: 21:57 Bed 15 Private MD: Diagnosis: Bronchitis Presentation: 07/05 22:03 Presenting complaint: Patient states: cough for the last couple weeks, nose bleed la1 today. Transition of care: patient was not received from another setting of care. Onset of symptoms was July 05, 2018. Risk Assessment: Do you want to hurt yourself or someone else? Patient reports no desire to harm self or others. Initial Sepsis Screen: Does the patient meet any 2 criteria? No. Patient's initial sepsis screen is negative. Does the patient have a suspected source of infection? No. Patient's initial sepsis screen is negative. Care prior to arrival: None. 22:03 Method Of Arrival: Wheelchair la1 22:03 Acuity: NARDA 3 la1 Historical: - Allergies: 22:03 codeine sulfate; la1 - PMHx: 22:03 Cirrhosis; Diabetes - NIDDM; Dialysis; heart valve; Hepatitis; HIV; Hyperlipidemia; la1 Karposi Sarcoma (left leg); kidney failure; - Immunization history:: Adult Immunizations up to date, Flu vaccine is up to date. - Social history:: Smoking status: Patient/guardian denies using tobacco. - Ebola Screening: : No symptoms or risks identified at this time. Screenin:00 Abuse screen: Denies threats or abuse. Nutritional screening: No deficits noted. jb4 Tuberculosis screening: No symptoms or risk factors identified. Fall Risk None identified. Assessment: 22:00 General: Appears in no apparent distress. uncomfortable, Behavior is calm, cooperative, jb4 appropriate for age. Pain: Complains of pain in anterior aspect of right upper chest, throat. Pain currently is 0 out of 10 on a pain scale. at worst was 8 out of 10 on a pain scale. Neuro: Level of Consciousness is awake, alert, obeys commands, Oriented to person, place, time, situation. Cardiovascular: Heart tones S1 S2 present Patient's skin is warm and dry. Respiratory: Reports cough that is productive, Airway is patent Respiratory effort is even, unlabored, Respiratory pattern is regular, symmetrical, Sputum is thick, green yellow Breath sounds are clear bilaterally. GI: No signs and/or symptoms were reported involving the gastrointestinal system. : No signs and/or symptoms were reported regarding the genitourinary system. EENT: No signs and/or symptoms were reported regarding the EENT system. Derm: Skin is intact, Skin is dry, Skin is normal, Skin temperature is warm. Musculoskeletal: Circulation, motion, and sensation intact. 23:12 Reassessment: Patient appears in no apparent distress at this time. Patient and/or jb4 family updated on plan of care and expected duration. Pain level reassessed. Patient is alert, oriented x 3, equal unlabored respirations, skin warm/dry/pink. 11 00:00 Reassessment: Patient appears in no apparent distress at this time. Patient and/or jb4 family updated on plan of care and expected duration. Pain level reassessed. Patient is alert, oriented x 3, equal unlabored respirations, skin warm/dry/pink. Vital Signs: 07/05 22:03 BP 132 / 74; Pulse 95; Resp 16; Temp 97.3; Pulse Ox 98% on R/A; Weight 49.9 kg; Height la1 5 ft. 7 in. (170.18 cm); 07/06 00:00 BP 134 / 79; Pulse 86; Resp 18; Pulse Ox 95% on R/A; jb4 07/05 22:03 Body Mass Index 17.23 (49.90 kg, 170.18 cm) la1 ED Course: 07/05 21:57 Patient arrived in ED. es 22:03 Triage completed. la1 22:04 Arm band placed on right wrist. la1 22:05 Patient has correct armband on for positive identification. Bed in low position. Call jb4 light in reach. Side rails up X 1. Pulse ox on. NIBP on. 22:08 Katlyn Bojorquez FNP-C is [facility]. snw 22:08 David Cardenas MD is Attending Physician. snw 22:28 David Cardenas MD is Attending Physician. pkl 22:44 Rufus Tinsley, LAURYN is Primary Nurse. [facility] 23:11 Inserted saline lock: 24 gauge in right hand, using aseptic technique. Blood collected. ok 23:23 X-ray completed. Patient tolerated procedure well. [facility] XRAY Chest Pa And Lat (2 Views) In Process Unspecified. EDMS 07/06 00:21 No provider procedures requiring assistance completed. IV discontinued, intact, jb4 bleeding controlled. Administered Medications: No medications were administered Outcome: 00:13 Discharge ordered by . ronni 00:21 Discharged to home ambulatory. jb4 00:21 Condition: stable 00:21 Discharge instructions given to patient, Instructed on discharge instructions, follow up and referral plans. medication usage, Demonstrated understanding of instructions, follow-up care, medications, Prescriptions given X 2. 00:23 Patient left the ED. jb4 Signatures: Dispatcher [employer] EDMS David Cardenas MD MD pkl Katlyn Bojorquez, MAPPING SPECIALIST-C MAPPING SPECIALIST-Csnw Yamilex Saldana Martha 1 Brad Israel, RN RN la1 Rufus Tinsley RN RN jb4 Karen Anderson ok Corrections: (The following items were deleted from the chart) 07/05 23:13 22:00 Respiratory: Airway is patent Respiratory effort is even, unlabored, Respiratory jb4 pattern is regular, symmetrical, jb4
--- NOTE | 2018-07-06 00:14 | EDPHYS ---
Physician Documentation [facility] Name: Salvatore Goldman Age: 63 yrs Sex: Male : 1955 Arrival Date: 07/05/2018 Time: 21:57 Bed 15 Private MD: ED Physician David Cardenas HPI: 07/05 22:49 This 63 yrs old Black Male presents to ER via Wheelchair with complaints of Cough, pkl Nasal Congestion. 22:49 The patient or guardian reports cough, described as moderate, with productive sputum, pkl that is yellow. Onset: The symptoms/episode began/occurred 2 week(s) ago. Associated signs and symptoms: Pertinent positives: nose bleed. Historical: - Allergies: 22:03 codeine sulfate; la1 - PMHx: 22:03 Cirrhosis; Diabetes - NIDDM; Dialysis; heart valve; Hepatitis; HIV; Hyperlipidemia; la1 Karposi Sarcoma (left leg); kidney failure; - Immunization history:: Adult Immunizations up to date, Flu vaccine is up to date. - Social history:: Smoking status: Patient/guardian denies using tobacco. - Ebola Screening: : No symptoms or risks identified at this time. ROS: 22:49 Eyes: Negative for injury, pain, redness, and discharge, ENT: Negative for injury, pkl pain, and discharge, Neck: Negative for injury, pain, and swelling, Cardiovascular: Negative for chest pain, palpitations, and edema. 22:49 Respiratory: Positive for cough, with yellow sputum, Negative for shortness of breath. 22:49 Abdomen/GI: Negative for abdominal pain, nausea, vomiting, and diarrhea. 22:49 Back: Negative for acute changes. 22:49 : Negative for urinary symptoms. 22:49 MS/extremity: Negative for acute changes. 22:49 Skin: Negative for acute changes. 22:49 Neuro: Negative for altered mental status. Exam: 22:49 Head/Face: Normocephalic, atraumatic. Eyes: Pupils equal round and reactive to light, pkl extra-ocular motions intact. Lids and lashes normal. Conjunctiva and sclera are non-icteric and not injected. Cornea within normal limits. Periorbital areas with no swelling, redness, or edema. ENT: Nares patent. No nasal discharge, no septal abnormalities noted. Tympanic membranes are normal and external auditory canals are clear. Oropharynx with no redness, swelling, or masses, exudates, or evidence of obstruction, uvula midline. Mucous membranes moist. Neck: Trachea midline, no thyromegaly or masses palpated, and no cervical lymphadenopathy. Supple, full range of motion without nuchal rigidity, or vertebral point tenderness. No Meningismus. Chest/axilla: Normal chest wall appearance and motion. Nontender with no deformity. No lesions are appreciated. Cardiovascular: Regular rate and rhythm with a normal S1 and S2. No gallops, murmurs, or rubs. Normal PMI, no JVD. No pulse deficits. Respiratory: Lungs have equal breath sounds bilaterally, clear to auscultation and percussion. No rales, rhonchi or wheezes noted. No increased work of breathing, no retractions or nasal flaring. Abdomen/GI: Soft, non-tender, with normal bowel sounds. No distension or tympany. No guarding or rebound. No evidence of tenderness throughout. Back: No spinal tenderness. No costovertebral tenderness. Full range of motion. Skin: Warm, dry with normal turgor. Normal color with no rashes, no lesions, and no evidence of cellulitis. MS/ Extremity: Pulses equal, no cyanosis. Neurovascular intact. Full, normal range of motion. Neuro: Awake and alert, GCS 15, oriented to person, place, time, and situation. Cranial nerves II-XII grossly intact. Motor strength 5/5 in all extremities. Sensory grossly intact. Cerebellar exam normal. Normal gait. Vital Signs: 22:03 BP 132 / 74; Pulse 95; Resp 16; Temp 97.3; Pulse Ox 98% on R/A; Weight 49.9 kg; Height la1 5 ft. 7 in. (170.18 cm); 07/06 00:00 BP 134 / 79; Pulse 86; Resp 18; Pulse Ox 95% on R/A; jb4 07/05 22:03 Body Mass Index 17.23 (49.90 kg, 170.18 cm) la1 MDM: 07/05 22:28 Patient medically screened. pkl 07/06 00:12 Data reviewed: vital signs, nurses notes, lab test result(s), radiologic studies, plain pkl films. 07/05 22:49 Order name: CBC with Diff; Complete Time: 00:11 pkl 07/05 22:49 Order name: Chem 7; Complete Time: 00:11 pkl 07/05 22:49 Order name: XRAY Chest Pa And Lat (2 Views) pkl Administered Medications: No medications were administered Disposition: 07/06/18 00:13 Discharged to Home. Impression: Bronchitis. - Condition is Stable. - Prescriptions for Zithromax Z- Derik 250 mg Oral Tablet - take 1 tablet by ORAL route as directed for 5 days Day 1 - take two (2) tablets one time. Day 2, 3, 4 , 5 take one (1) tablet once daily.; 6 tablet. Guaifenesin- DM 10-100 mg/5 mL Oral Liquid - take 10 milliliter by ORAL route every 8 hours As needed as needed; 120 milliliter. - Medication Reconciliation Form, Thank You Letter, Antibiotic Education, Prescription Opioid Use form. - Follow up: Private Physician; When: 2 - 3 days; Reason: Re-evaluation by your physician. - Problem is new. - Symptoms have improved. Signatures: Dispatcher [employer] EDNM David Cardenas MD MD pkl Brad Israel RN RN la1 Rufus Tinsley RN RN jb4 Corrections: (The following items were deleted from the chart) 00:23 00:13 07/06/2018 00:13 Discharged to Home. Impression: Bronchitis. Condition is Stable. jb4 Forms are Medication Reconciliation Form, Thank You Letter, Antibiotic Education, Prescription Opioid Use. Follow up: Private Physician; When: 2 - 3 days; Reason: Re-evaluation by your physician. Problem is new. Symptoms have improved. pkl
[2018-07-06 01:20] VITALS: TEMP 97.3
[2018-07-06 01:21] VITALS: BP 134/79; O2SAT 95
--- NOTE | 2018-07-06 08:02 | RAD REPORT ---
EXAM DESCRIPTION: RAD - Chest Pa And Lat (2 Views) - 07/05/2018 11:25 pm CLINICAL HISTORY: Cough and congestion, cirrhosis COMPARISON: CT imaging May 18, portable chest May 16 TECHNIQUE: PA and lateral views of the chest were obtained. FINDINGS: The lungs are normal volume. No new or progressive left lung field finding. Right base ple ural effusion and right middle lobe opacification have not changed. Central vasculature and lung brynn ings remain prominent. Heart size is upper normal. Upper lobe vasculature is mildly prominent and s imilar to the comparison. No pneumothorax. Minimal left pleural effusion seen. No aortic abnormality. Sternotomy wires in place. Mitral valve replacement noted. IMPRESSION: Right greater than left pleural effusions are present, both probably improved from the l aliya base images of the May 18 CT study. Mild failure/ volume overload pattern remains. Right middle lobe consolidation suspected. There is partial atelectasis of the right lower lobe.
== END 2018-07-06 00:23 | disposition home or self-care (01) ==
LOC: ER 21:54
DX: J40 Bronchitis, not specified as acute or chronic (principal); Z21 Asymptomatic human immunodeficiency virus [HIV] infection status; Z88.5 Allergy status to narcotic agent
CPT/HCPCS: 36415; 71046; 80048; 85025; 99284

== ENCOUNTER 2018-07-24 23:50 | Emergency (ER) | payer OTHER ==
--- OUTSIDE RECORDS SUMMARY | 2018-07-24 23:54 | XMS REPORT ---
:1955 Author Organization [facility] Address Unavailable , Allergies, Adverse Reactions, [...] PÉREZ essential hypertension Hypertensive 362.11 Active Ramu Pakr Hypertensive retinopathy, 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 Presbyopia - 367.4 Active Mo Presbyopia OU 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 OD 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, 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 OD astigmatism bilateral Medication List Medication Instructions Start Stop Generic NDC Status Provider Patient Date Date Name Instruction AMLODIPINE AMLODIPINE 36681091742 Active Mo Active BESYLATE 10 MG BESYLATE Dicks OD ORAL TABLET CALCIUM ACETATE CALCIUM ACETATE 67778213878 Active Mo Active (PHOS BINDER) (PHOS BINDER) Dicks OD 667 MG ORAL CAPSULE CRESTOR 5 MG ROSUVASTATIN 19706384975 Active Mo Active ORAL TABLET CALCIUM Dicks OD EPIVIR SOLUTION LAMIVUDINE SOLN 46710340959 Active Mo Active Dicks OD ISENTRESS RALTEGRAVIR 76753016905 Active Mo Active TABLET POTASSIUM TABS Dicks OD KALETRA TABLET LOPINAVIR-RITONAVI 72617368034 Active Mo Active R TABS Dicks OD LAMIVUDINE LAMIVUDINE TABS 24607560483 Active Mo Active TABLET Dicks OD PROAIR HFA ALBUTEROL SULFATE 04582384489 Active Mo Active AEROSOL AERS Dicks OD SOLUTION PEDRO-EAMON RX B-COMPLEX W/ C & 01940077331 Active Mo Active TABLET FOLIC ACID TABS Dicks OD VITAMIN D2 ERGOCALCIFEROL 06940012393 Active Mo Active TABLET TABS Dicks OD Diagnostic Results Date Name Value Unit Range Description Append: Eye Exam - Hematology T-helper cells (CD4) count 602 uL Append: Eye Exam - Serology HIV-1RNA, serum, by PCR, quantitative 20 {Copies}/mL Procedures Code Procedure Name Date Entry Date Standard Description [id number] Dispensing Visit (UNLIVSTED OPHTHALMOLOGICAL 10:14:39 CDT SERVICE/PROCEDURE) [id number] Est Patient Comprehensive Opt - 15431 15:29:32 CDT CPT-37881 New Patient Intermediate Opt - 62040 14:28:41 CDT
--- OUTSIDE RECORDS SUMMARY | 2018-07-24 23:54 | XMS REPORT ---
:1955 [facility] [address] [place] [address] Care Team Providers Name Role Phone UNKNOWN, [...] Facility Department ID 2017-11-18 2017-11-20 Inpatient [facility] [id number] 13:43:00 13:54:00 MAYLIN 2017-11-07 2017-11-07 Emergency E [facility] [id number] 20:22:00 20:22:00 2017-10-06 2017-10-06 Emergency E [facility] [id number] 14:25:00 14:25:00 NEEL Results Test Description Test Time Test Comments Text Results Atomic Results Result Comments CD4/CD8 Ratio Profile 2017-11-27 08:04:00 Test Item Value Reference Range Comments Absolute CD 4 [place] (test zpln=196818) 188 /uL 359-1519 % CD 4 Pos. Lymph. (test kjoh=350929) 37.6 % 30.8-58.5 Abs. CD 8 Suppressor (test pjuj=033828) 183 /uL 109-897 % CD 8 Pos. Lymph. (test whib=913362) 36.6 % 12.0-35.5 CD4/CD8 Ratio (test ccyp=578425) 1.03 0.92-3.72 WBC (test nrvj=976241) 5.0 x10E3/uL 3.4-10.8 RBC (test ewnh=775993) 3.00 x10E6/uL 4.14-5.80 Hemoglobin (test xpga=130155) 9.6 g/dL 13.0-17.7 Hematocrit (test tbxa=251147) 27.6 % 37.5-51.0 MCV (test uczi=191650) 92 fL 79-97 MCH (test eyzn=115681) 32.0 pg 26.6-33.0 MCHC (test ibba=501333) 34.8 g/dL 31.5-35.7 RDW (test yakg=674371) 15.5 % 12.3-15.4 Platelets (test pnbz=303926) 113 x10E3/uL 150-379 Neutrophils (test fimv=489055) 84 % Not Estab. Lymphs (test equl=703219) 9 % Not Estab. Monocytes (test jrzr=366964) 6 % Not Estab. Eos (test scgx=655238) 1 % Not Estab. Basos (test wtgy=575739) 0 % Not Estab. Neutrophils (Absolute) (test wcmp=203358) 4.2 x10E3/uL 1.4-7.0 Lymphs (Absolute) (test vhwt=462602) 0.5 x10E3/uL 0.7-3.1 Monocytes(Absolute) (test wmho=311811) 0.3 x10E3/uL 0.1-0.9 Eos (Absolute) (test szvq=137496) 0.0 x10E3/uL 0.0-0.4 Baso (Absolute) (test jvzl=329892) 0.0 x10E3/uL 0.0-0.2 Immature Granulocytes (test dnrn=545966) 0 % Not Estab. Immature Grans (Abs) (test lxkb=606963) 0.0 x10E3/uL 0.0-0.1 Culture, Blood [id number] 08:42:00Specimen: BloodCollected: 11/19/2017 00 :21 Status: Final Last Updated: 11/24/2017 08:42 Culture Result (Final) ( Final) No Growth After 5 DaysCulture, Blood [id number] 08:42: 00Specimen: BloodCollected: 11/18/2017 20:30 Status: Final Last Updated: 08:42 Culture Result (Final) (Final) No Growth After 5 DaysPOC Glucose, [id number] 11:51:00 Test Item Value Reference Range Comments POC Glucose (test 148 mg/dL 70-115 Notify RN or MDIf you consider code=POCGLUC) your patient critically ill, the [facility] Accu-Chek InformII metershould not be used for Glucose determinations.Draw a venous Glucose and send to the Main Lab for Analysis. CK [id number] 07:42:00 Test Item Value Reference Range Comments CK (test code=CK) na U/L 39-308 CKMB (test code=CKMB) 4.0 ng/mL 0.0-4.9 CKMB% (test code=CKMBP) 0.0 % 0.0-3.4 Aon-[id number] 07:39:00 Test Item Value Reference Range Comments NT ProBnp (test code=PBNP) >55384 pg/mL 0-124 Troponin [id number] 07:18:00 Test Item Value Reference Range Comments Troponin T (test code=MADHAV) 0.103 ng/mL 0.000-0.090 Lactate Xxgxquufnwfgz2711-22-07 07:18:00 Test Item Value Reference Range Comments LDH (test code=LDH) 271 U/L 135-225 POC Glucose, [id number] 06:50:00 Test Item Value Reference Range Comments POC Glucose (test 154 mg/dL 70-115 Notify RN or MDIf you consider code=POCGLUC) your patient critically ill, the [place]eline Accu-Chek InformII metershould not be used for Glucose determinations.Draw a venous Glucose and send to the Main Lab for Analysis. CK [id number] 01:08:00 Test Item Value Reference Range Comments CK (test code=CK) na U/L 39-308 CKMB (test code=CKMB) 3.6 ng/mL 0.0-4.9 CKMB% (test code=CKMBP) 0.0 % 0.0-3.4 Troponin [id number] 01:08:00 Test Item Value Reference Range Comments Troponin T (test code=MADHAV) 0.106 ng/mL 0.000-0.090 XR CHEST 1 [id number] 21:02:01CLINICAL INFORMATION: Vascular congestion.Dictation Location: R 16Comparison: 11/18/2017 showed perihilar and lower lobe opacities. Technique: Portable AP 1951 hoursFINDINGS: Monitoring electrodes overlie the chest wall. Cardiomegaly withincreasing central vascular interstitial prominence with bibasilaropacities and effusions. No interval bone changes.IMPRESSION: Changes could indicate worsening cardiac decompensation orfluid overload.POC Glucose, [id number] 20:15:00 Test Item Value Reference Range Comments POC Glucose (test 139 mg/dL 70-115 If you consider your patient code=POCGLUC) critically ill, the [place]eline Accu-Chek InformII metershould not be used for Glucose determinations.Draw a venous Glucose and send to the Main Lab for Analysis. POC Glucose, [id number] 16:52:00 Test Item Value Reference Range Comments POC Glucose (test 123 mg/dL 70-115 If you consider your patient code=POCGLUC) critically ill, the [place]eline Accu-Chek InformII metershould not be used for Glucose determinations.Draw a venous Glucose and send to the Main Lab for Analysis. POC Glucose, [id number] 12:04:00 Test Item Value Reference Range Comments POC Glucose (test 140 mg/dL 70-115 If you consider your patient code=POCGLUC) critically ill, the [place]eline Accu-Chek InformII metershould not be used for Glucose determinations.Draw a venous Glucose and send to the Main Lab for Analysis. POC Glucose, [id number] 08:01:00 Test Item Value Reference Range Comments POC Glucose (test 126 mg/dL 70-115 If you consider your patient code=POCGLUC) critically ill, the [place]eline Accu-Chek InformII metershould not be used for Glucose determinations.Draw a venous Glucose and send to the Main Lab for Analysis. CK [id number] 06:03:00 Test Item Value Reference Range Comments CK (test code=CK) na U/L 39-308 CKMB (test code=CKMB) 2.8 ng/mL 0.0-4.9 CKMB% (test code=CKMBP) 0.0 % 0.0-3.4 Basic Metabolic [id number] 05:51:00 Test Item Value Reference Range Comments [...] race is not provided, and the patient isAfrican-Chinese, multiply by 1.212. If sex is not provided, and thepatient is female, multiply by 0.742. Results for patients <18 years ofage have not been validated by the MDRD study and should be interpretedwith caution.eGFR Result Interpretation:eGFR > or=60 is in the Normal RangeeGFR < 60 may mean kidney diseaseeGFR < 15 may mean kidney failureRanges recommended by the National Kidney Foundation,http://nkdep.nih .gov Magnesium, [id number] 05:51:00 Test Item Value Reference Range Comments Magnesium (test code=MG) 1.9 mg/dL 1.7-2.5 [id number] 05:51:00 Test Item Value Reference Range Comments Phosphorus (test code=PO4) 3.8 mg/dL 2.70-4.50 Lvg-[id number] 05:51:00 Test Item Value Reference Range Comments NT ProBnp (test code=PBNP) >01538 pg/mL 0-124 Troponin [id number] 05:51:00 Test Item Value Reference Range Comments Troponin T (test code=MADHAV) 0.126 ng/mL 0.000-0.090 CBC with Cwkeujivnbjp5415-22-27 05:34:00 Test Item Value Reference Range Comments [...] Lymph Abs (test code=ALYMPH) 0.4 K/cumm 0.5-4.6 [place] Abs (test code=AMONO) 0.6 K/cumm 0.0-1.2 Eos Abs (test code=AEOS) 0.13 K/cumm 0.00-0.74 Baso Abs (test code=ABASO) 0.0 K/cumm 0.00-0.21 CK [id number] 18:39:00 Test Item Value Reference Range Comments CK (test code=CK) HIDE U/L 39-308 CKMB (test code=CKMB) 3.2 ng/mL 0.0-4.9 CKMB% (test code=CKMBP) HIDE % 0.0-3.4 Troponin [id number] 18:39:00 Test Item Value Reference Range Comments Troponin T (test code=MADHAV) 0.126 ng/mL 0.000-0.090 Hep B Surface [id number] 18:39:00 Test Item Value Reference Range Comments Hep Bs Ag (test code=HBSAG) Nonreactive Non-Reactive POC Glucose, [id number] 16:47:00 Test Item Value Reference Range Comments POC Glucose (test 143 mg/dL 70-115 If you consider your patient code=POCGLUC) critically ill, the [place] Accu-Chek InformII metershould not be used for Glucose determinations.Draw a venous Glucose and send to the Main Lab for Analysis. XR CHEST 1 [id number] 08:18:18EXAM: Portable AP chest x-rayLOCATION: R16 INDICATION: CoughCOMPARISON: 11/07/2017FINDINGS:The cardiacsilhouette is stable enlargement. There are increasinginterstitial opacities, most evident in the perihilar regions and lowerlobes. There is blunting of the costophrenic angles bilaterally. Thereis no discernible pneumothorax.IMPRESSION:Increasing perihilar and bilateral lower lobe opacities compared to theprior exam dated 11/07. Findings may represent pulmonary edema orpneumonia in the appropriate clinical setting.Comprehensive Metabolic [id number] 08:05:00 Test Item Value Reference Range Comments [...] race is not provided, and the patient isAfrican-Chinese, multiply by 1.212. If sex is not provided, and thepatient is female, multiply by 0.742. Results for patients <18 years ofage have not been validated by the MDRD study and should be interpretedwith caution.eGFR Result Interpretation:eGFR > or=60 is in the Normal RangeeGFR < 60 may mean kidney diseaseeGFR < 15 may mean kidney failureRanges recommended by the National Kidney Foundation,http://nkdep.nih .gov CK [id number] 08:05:00 Test Item Value Reference Range Comments CK (test code=CK) 149 U/L 39-308 Troponin [id number] 08:02:00 Test Item Value Reference Range Comments Troponin T (test code=MADHAV) 0.114 ng/mL 0.000-0.090 Dxj-[id number] 08:02:00 Test Item Value Reference Range Comments NT ProBnp (test code=PBNP) >96793 pg/mL 0-124 CBC with Qtpxqnewgjug5968-27-07 07:53:00 Test Item Value Reference Range Comments [...] Lymph Abs (test code=ALYMPH) 0.9 K/cumm 0.5-4.6 [place] Abs (test code=AMONO) 0.4 K/cumm 0.0-1.2 Eos Abs (test code=AEOS) 0.11 K/cumm 0.00-0.74 Baso Abs (test code=ABASO) 0.0 K/cumm 0.00-0.21 XR CHEST 1 [id number] 21:38:09EXAM: CHEST ONE VIEWINDICATION: CoughCOMPARISON: October 06, 2017TECHNIQUE: AP view of the chest.FINDINGS: The cardiomediastinal silhouette is unchanged. Mild congestive changesbilaterally. No pneumothorax or pleural effusion is identified. Theosseous structures are unremarkable.IMPRESSION: Diffuse congestive changes bilaterally.LOCATION: R16US DUPLX EXT VEINS COMPR, [id number] 20:09:34AFTER HOURS SERVICE ON: 10/06/2017 8: 09 PMRIGHT Lower Extremity Venous Duplex Doppler ExaminationLocation Code H85Mhqmzzz: SwellingTechnique: Real-time castillo scale, Doppler spectral analysis [...] imaged vessels.AFTER HOURS SERVICE ON: 10/06/2017 8:09 [facility] Lower Extremity Venous Duplex Doppler ExaminationLocation Code K81Lcdkuod : SwellingTechnique: Real-time castillo scale, Doppler spectral [...] of DVT in the imaged vessels.Comprehensive Metabolic [id number] 17 :40:00 Test Item Value Reference Range [...] race is not provided, and the patient isAfrican-Chinese, multiply by 1.212. If sex is not [...] the National Kidney Foundation,http://nkdep.nih .gov CBC with [id number] 17:15:00 Test Item Value Reference Range Comments [...] Lymph Abs (test code=ALYMPH) 1.3 K/cumm 0.5-4.6 [place] Abs (test code=AMONO) 0.6 K/cumm 0.0-1.2 Eos Abs (test code=AEOS) 0.12 K/cumm 0.00-0.74 Baso Abs (test code=ABASO) 0.0 K/cumm 0.00-0.21 XR CHEST 1 [id number] 16:56:42CHEST 1 VIEW: [id number]: coughCOMPARISON: Sep 24, 2017FINDINGS:The heart is enlarged. There is engorgement of the central pulmonaryvasculature. There are patchy bibasilar areas of infiltrate oratelectasis with bilateral effusions. No pneumothorax is present. IMPRESSION: 1. Patchy areas of atelectasis or infiltrate in the lung bases withsmall bilateral effusions and vascular congestion most likely secondaryto CHF.Culture, Blood [id number] 14:58:00Specimen: BloodCollected: 2017 13:05 Status: Final Last Updated: 09/29/2017 14:58 (1) ER Bed 1 Culture Result (Final) (Final) No Growth After 5 DaysCulture, Blood [id number] 14:58:00Specimen: BloodCollected: 09/24/2017 12:50 Status: Final Last Updated: 09/29/2017 14:58 (1) ER Bed 1 Culture Result (Final) (Final) No Growth After 5 DaysPOC Glucose, [id number] 10:54:00 Test Item Value Reference Range Comments POC Glucose (test 168 mg/dL 70-115 If you consider your patient code=POCGLUC) critically ill, the [facility] Accu-Chek InformII metershould not be used for Glucose determinations.Draw a venous Glucose and send to the Main Lab for Analysis. POC Glucose, [id number] 07:16:00 Test Item Value Reference Range Comments POC Glucose (test 143 mg/dL 70-115 If you consider your patient code=POCGLUC) critically ill, the [facility] Accu-Chek InformII metershould not be used for Glucose determinations.Draw a venous Glucose and send to the Main Lab for Analysis. CBC with [id number] 07:15:00 Test Item Value Reference Range Comments [...] Lymph Abs (test code=ALYMPH) 1.3 K/cumm 0.5-4.6 [place] Abs (test code=AMONO) 0.7 K/cumm 0.0-1.2 Eos Abs (test code=AEOS) 0.07 K/cumm 0.00-0.74 Baso Abs (test code=ABASO) 0.0 K/cumm 0.00-0.21 Magnesium, [id number] 07:03:00 Test Item Value Reference Range Comments Magnesium (test code=MG) 2.0 mg/dL 1.7-2.5 Basic Metabolic [id number] 07:03:00 Test Item Value Reference Range Comments [...] race is not provided, and the patient isAfrican-Chinese, multiply by 1.212. If sex is not [...] the National Kidney Foundation,http://nkdep.nih .gov POC Glucose, [id number] 21:40:00 Test Item Value Reference Range Comments POC Glucose (test 129 mg/dL 70-115 If you consider your patient code=POCGLUC) critically ill, the [facility] Accu-Chek InformII metershould not be used for Glucose determinations.Draw a venous Glucose and send to the Main Lab for Analysis. Hep B Surface [id number] 18:36:00 Test Item Value Reference Range Comments Hep Bs Ag (test code=HBSAG) Nonreactive Non-Reactive POC Glucose, [id number] 10:51:00 Test Item Value Reference Range Comments POC Glucose (test 216 mg/dL 70-115 If you consider your patient code=POCGLUC) critically ill, the [place] Accu-Chek InformII metershould not be used for Glucose determinations.Draw a venous Glucose and send to the Main Lab for Analysis. POC Glucose, [id number] 07:57:00 Test Item Value Reference Range Comments POC Glucose (test 164 mg/dL 70-115 If you consider your patient code=POCGLUC) critically ill, the [facility]eline Accu-Chek InformII metershould not be used for Glucose determinations.Draw a venous Glucose and send to the Main Lab for Analysis. POC Glucose, [id number] 19:47:00 Test Item Value Reference Range Comments POC Glucose (test 140 mg/dL 70-115 Notify RN or MDIf you consider code=POCGLUC) your patient critically ill, the [facility] Accu-Chek InformII metershould not be used for Glucose determinations.Draw a venous Glucose and send to the Main Lab for Analysis. Troponin [id number] 19:36:00 Test Item Value Reference Range Comments Troponin T (test code=MADHAV) 0.121 ng/mL 0.000-0.090 CK [id number] 19:25:00 Test Item Value Reference Range Comments CK (test code=CK) 160 U/L 39-308 The value HIDE originally released by [employer] on 09/25/2017 19:12 waschanged to 160 by [employer] on 09/25/2017 19:24 CKMB (test code=CKMB) 3.0 ng/mL 0.0-4.9 CKMB% (test code=CKMBP) 1.9 % 0.0-3.4 The value HIDE originally released by [employer] on 09/25/2017 19:12 waschanged to 1.9 by [employer] on 09/25/2017 19:24 POC Glucose, [id number] 16:42:00 Test Item Value Reference Range Comments POC Glucose (test 123 mg/dL 70-115 If you consider your patient code=POCGLUC) critically ill, the [place]eline Accu-Chek InformII metershould not be used for Glucose determinations.Draw a venous Glucose and send to the Main Lab for Analysis. POC Glucose, [id number] 12:09:00 Test Item Value Reference Range Comments POC Glucose (test 141 mg/dL 70-115 If you consider your patient code=POCGLUC) critically ill, the [facility]eline Accu-Chek InformII metershould not be used for Glucose determinations.Draw a venous Glucose and send to the Main Lab for Analysis. Hep B Surface [id number] 07:59:00 Test Item Value Reference Range Comments Hep Bs Ag (test code=HBSAG) Nonreactive Non-Reactive CK [id number] 07:43:00 Test Item Value Reference Range Comments CK (test code=CK) n/a U/L 39-308 CKMB (test code=CKMB) 2.4 ng/mL 0.0-4.9 CKMB% (test code=CKMBP) 0.0 % 0.0-3.4 Troponin [id number] 07:38:00 Test Item Value Reference Range Comments Troponin T (test code=MADHAV) 0.134 ng/mL 0.000-0.090 Thyroid Stimulating Hormone (TSH)2017-09-25 07:38:00 Test Item Value Reference Range Comments TSH (test code=TSH) 1.10 mIU/mL 0.270-4.200 [id number] 07:38:00 Test Item Value Reference Range Comments Phosphorus (test code=PO4) 3.4 mg/dL 2.70-4.50 Comprehensive Metabolic [id number] 07:38:00 Test Item Value Reference Range Comments [...] race is not provided, and the patient isAfrican-Chinese, multiply by 1.212. If sex is not provided, and thepatient is female, multiply by 0.742. Results for patients <18 years ofage have not been validated by the MDRD study and should be interpretedwith caution.eGFR Result Interpretation:eGFR > or=60 is in the Normal RangeeGFR < 60 may mean kidney diseaseeGFR < 15 may mean kidney failureRanges recommended by the National Kidney Foundation,http://nkdep.nih .gov Magnesium, [id number] 07:38:00 Test Item Value Reference Range Comments Magnesium (test code=MG) 2.0 mg/dL 1.7-2.5 CK [id number] 07:31:00 Test Item Value Reference Range Comments CK (test code=CK) 159 U/L 39-308 Lipid [id number] 07:31:00 Test Item Value Reference Range Comments Cholesterol (test 118 mg/dL 0-200 code=CHOL) Triglycerides (test 170 mg/dL 9-200 code=TRIG) HDL (test code=HDL) 49 mg/dL 40-60 Chol/HDL (test 2.4 Ratio 0.0-5.0 code=CHOLPHDL) LDL, Calculated (test 35 0-130 (NOTE)RISK OF HEART code=LDLC) DISEASEPublished by Chinese Heart AssociationAnalyte Optimal Boderline Increased RiskCHOL <200 200-239 >240TRIG <150 150-199 >200HDL Male: >60 <40HDL Female: >60 <50LDL <100 130-159 >160LDL NEAR OPTIMAL IS 100-129 VLDL (test code=VLDL) 34 mg/dL 5-40 LDL/HDL (test code=LDLPHDL) 1 Glycosylated Ljuiroocen1851-11-06 07:24:00 Test Item Value Reference Range Comments HBA1c (test code=HBA1C) 5.0 % 4.8-5.9 CBC with [id number] 07:20:00 Test Item Value Reference Range Comments [...] Lymph Abs (test code=ALYMPH) 0.8 K/cumm 0.5-4.6 [place] Abs (test code=AMONO) 0.5 K/cumm 0.0-1.2 Eos Abs (test code=AEOS) 0.10 K/cumm 0.00-0.74 Baso Abs (test code=ABASO) 0.0 K/cumm 0.00-0.21 POC Glucose, [id number] 07:03:00 Test Item Value Reference Range Comments POC Glucose (test 147 mg/dL 70-115 If you consider your patient code=POCGLUC) critically ill, the [place] Accu-Chek InformII metershould not be used for Glucose determinations.Draw a venous Glucose and send to the Main Lab for Analysis. POC Glucose, [id number] 22:05:00 Test Item Value Reference Range Comments POC Glucose (test 134 mg/dL 70-115 If you consider your patient code=POCGLUC) critically ill, the [place] Accu-Chek InformII metershould not be used for Glucose determinations.Draw a venous Glucose and send to the Main Lab for Analysis. Blood Gas+Lytes+Glu+Ca+Hgb+Hct+[id number] 18:31:00 Test Item Value Reference Range Comments [...] Celcius code=PTTEMP) Comment (test code=COMMENT) [email or web address] Puncture Site (test code=PUNSITE) Radial. R Drawing Tech ID (test medel fi code=DRAWTECH) iPAP (test code=IPAP) 0 cmH2O Respiratory Rate (test code=RESP 0 RATE) Lactic Acid, Blood Gas (test 0.4 mmol/L code=BGLA) CT CHEST W/O [id number] 16:48:03CT CHEST W/O CONTRASTLOCATION CODE: R16 HISTORY: [...] bilateral axillary, prevascular, andparatracheal lymph nodes.Influenza B [id number] 14:36:00Specimen: NasalCollected: 09/24/2017 14:04 Status: Final Last [...] Culture of negative samples is recommended.Influenza A [id number] 14:34:00Specimen: NasalCollected: 09/24/2017 14:04 Status: Final Last [...] Culture of negative samples is recommended.Comprehensive Metabolic [id number] 13:54:00 Test Item Value Reference Range Comments [...] race is not provided, and the patient isAfrican-Chinese, multiply by 1.212. If sex is not provided, and thepatient is female, multiply by 0.742. Results for patients <18 years ofage have not been validated by the MDRD study and should be interpretedwith caution.eGFR Result Interpretation:eGFR > or=60 is in the Normal RangeeGFR < 60 may mean kidney diseaseeGFR < 15 may mean kidney failureRanges recommended by the National Kidney Foundation,http://nkdep.nih .gov Troponin [id number] 13:54:00 Test Item Value Reference Range Comments Troponin T (test code=MADHAV) 0.124 ng/mL 0.000-0.090 Maj-[id number] 13:54:00 Test Item Value Reference Range Comments NT ProBnp (test code=PBNP) >22496 pg/mL 0-124 CK [id number] 13:54:00 Test Item Value Reference Range Comments CK (test code=CK) 222 U/L 39-308 CKMB (test code=CKMB) 3.1 ng/mL 0.0-4.9 CKMB% (test code=CKMBP) 1.4 % 0.0-3.4 CK [id number] 13:54:00 Test Item Value Reference Range Comments CK (test code=CK) 222 U/L 39-308 Partial Thromboplastin [id number] 13:43:00 Test Item Value Reference Range Comments aPTT (test code=PTT) 35.70 seconds 24.39-37.25 Prothrombin [id number] 13:43:00 Test Item Value Reference Range Comments PT (test code=PT) 11.30 seconds 9.78-13.35 INR (test code=INR) 0.99 Ratio 0.6-1.2 Lactic Acid [id number] 13:41:00 Test Item Value Reference Range Comments Lactic Acid, Bld (test code=LAC) 1.3 mmol/L 0.5-1.9 CBC with [id number] 13:32:00 Test Item Value Reference Range Comments [...] Lymph Abs (test code=ALYMPH) 1.2 K/cumm 0.5-4.6 [place] Abs (test code=AMONO) 0.6 K/cumm 0.0-1.2 Eos Abs (test code=AEOS) 0.23 K/cumm 0.00-0.74 Baso Abs (test code=ABASO) 0.0 K/cumm 0.00-0.21 XR CHEST 1 [id number] 12:50:14XR CHEST 1 VIEWLOCATION: [id number]: None.INDICATION: CoughDISCUSSION:A single portable chest radiograph was [...]
--- NOTE | 2018-07-25 00:54 | ER ---
Nurse's Notes [facility] Name: Salvatore Goldman Age: 63 yrs Sex: Male : 1955 Arrival Date: 07/24/2018 Time: 23:54 Bed 6 Private MD: Diagnosis: Acute anal fissure Presentation: 07/25 00:12 Presenting complaint: Patient states: "I have been having Diarrhea for 2 weeks, and is jd3 hurting me to wipe. I don't know if I wiped it raw, but it hurts to wipe and there are blood streaks on the toilet paper. It is just really burning and itching.". Transition of care: patient was not received from another setting of care. Onset of symptoms was July 11, 2018. Risk Assessment: Do you want to hurt yourself or someone else? Patient reports no desire to harm self or others. Initial Sepsis Screen: Does the patient meet any 2 criteria? No. Patient's initial sepsis screen is negative. Does the patient have a suspected source of infection? No. Patient's initial sepsis screen is negative. Care prior to arrival: None. 00:12 Method Of Arrival: Wheelchair jd3 00:12 Acuity: NARDA 3 jd3 Triage Assessment: 01:04 General: Appears in no apparent distress. Behavior is calm, cooperative. Pain: ak1 Complains of pain in gluteal cleft. Historical: - Allergies: 00:18 codeine sulfate; jd3 - Home Meds: 00:18 aspirin 81 mg Oral chew 1 tab once daily [Active]; atorvastatin 20 mg Oral tab 1 tab jd3 once daily [Active]; docusate sodium 100 mg Oral tab 1 tab 2 times per day [Active]; Isentress 400 mg Oral tab 1 tab 2 times per day [Active]; Kaletra 200-50 mg Oral tab 2 tabs 2 times per day [Active]; lamivudine 10 mg/mL Oral soln 2.5 mL once daily [Active]; metoprolol tartrate 25 mg Oral tab 1 tab once daily [Active]; Vitamin D Oral 73294 unit WEEKLY [Active]; warfarin 5 mg Oral tab 1 tab once daily [Active]; - PMHx: 00:18 Dialysis; Hyperlipidemia; HIV; Diabetes - NIDDM; Cirrhosis; heart valve; Hepatitis; jd3 Karposi Sarcoma (left leg); kidney failure; - PSHx: 00:18 heart valve replacement; jd3 - Immunization history:: Adult Immunizations up to date. - Social history:: Smoking status: Patient/guardian denies using tobacco. - Ebola Screening: : Patient negative for fever greater than or equal to 101.5 degrees Fahrenheit, and additional compatible Ebola Virus Disease symptoms. - Family history:: not pertinent. - Hospitalizations: : No recent hospitalization is reported. Screenin:19 Abuse screen: Denies threats or abuse. Nutritional screening: No deficits noted. jd3 Tuberculosis screening: No symptoms or risk factors identified. Fall Risk Ambulatory Aid- Crutches/Cane/Walker (15 pts). Gait- Weak (10 pts.). Mental Status- Oriented to own ability (0 pts). Total Humphrey Fall Scale indicates Low Risk Score (25-44 pts). Fall prevention measures have been instituted. Side Rails Up X 2 Placed close to Nursing Station Frequent Obs/Assesments occuring. Assessment: 00:35 General: Appears in no apparent distress. Behavior is calm, cooperative. ak1 00:35 Pain: Complains of pain in gluteal cleft. Neuro: No deficits noted. Cardiovascular: No ak1 deficits noted. Respiratory: No deficits noted. GI: Reports diarrhea, rectal bleeding. GI: Rectal exam: fissures noted while with provider at bedside. : No signs and/or symptoms were reported regarding the genitourinary system. EENT: No signs and/or symptoms were reported regarding the EENT system. Derm: No signs and/or symptoms reported regarding the dermatologic system. Musculoskeletal: No signs and/or symptoms reported regarding the musculoskeletal system. Vital Signs: 00:18 BP 137 / 82; Pulse 85; Resp 17 S; Temp 98.9(O); Pulse Ox 99% on R/A; Weight 73.94 kg jd3 (R); Height 5 ft. 7 in. (170.18 cm) (R); Pain 8/10; 00:18 Body Mass Index 25.53 (73.94 kg, 170.18 cm) jd3 ED Course: 07/24 23:54 Patient arrived in ED. es 07/25 00:04 Manuel Montgomery MD is Attending Physician. rn 00:11 Dean Cee RN is Primary Nurse. jd3 00:15 Triage completed. jd3 00:19 Arm band placed on. jd3 00:19 Patient has correct armband on for positive identification. Bed in low position. Call jd3 light in reach. Side rails up X2. Adult w/ patient. 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 ak1 00:52 Phuc Jones MD is Referral Physician. rn 01:06 Patient did not have IV access during this emergency room visit. ak1 Administered Medications: No medications were administered Outcome: 00:35 Discharged to home ambulatory. ak1 00:35 Condition: good 00:35 Discharge instructions given to patient, Instructed on discharge instructions, follow up and referral plans. medication usage, Demonstrated understanding of instructions, follow-up care, medications, Prescriptions given X 1. 00:53 Discharge ordered by . rn 01:07 Patient left the ED. ak1 Signatures: Yamilex Saldana Roman, MD MD rn Krenek, Amber, RN RN ak1 Dean Cee RN RN jd3
--- NOTE | 2018-07-25 00:54 | EDPHYS ---
Physician Documentation [facility] Name: Salvatore Goldman Age: 63 yrs Sex: Male : 1955 Arrival Date: 07/24/2018 Time: 23:54 Bed 6 Private MD: ED Physician Manuel Montgomery HPI: 07/25 00:48 This 63 yrs old Black Male presents to ER via Wheelchair with complaints of Rectal Pain.rn 00:48 The patient presents to the emergency department with pain in the rectal area. Onset: rn The symptoms/episode began/occurred 2 day(s) ago. Modifying factors: The symptoms are alleviated by sitz baths, The symptoms are aggravated by bowel movement. The patient has not experienced similar symptoms in the past. Reports mild diarrhea for last 2 days, noticed increased anal pain and some small blood when wiping, no blood in stool, no fever, no vomiting, no abd pain. + itching.. Historical: - Allergies: 00:18 codeine sulfate; jd3 - Home Meds: 00:18 aspirin 81 mg Oral chew 1 tab once daily [Active]; atorvastatin 20 mg Oral tab 1 tab jd3 once daily [Active]; docusate sodium 100 mg Oral tab 1 tab 2 times per day [Active]; Isentress 400 mg Oral tab 1 tab 2 times per day [Active]; Kaletra 200-50 mg Oral tab 2 tabs 2 times per day [Active]; lamivudine 10 mg/mL Oral soln 2.5 mL once daily [Active]; metoprolol tartrate 25 mg Oral tab 1 tab once daily [Active]; Vitamin D Oral 67384 unit WEEKLY [Active]; warfarin 5 mg Oral tab 1 tab once daily [Active]; - PMHx: 00:18 Dialysis; Hyperlipidemia; HIV; Diabetes - NIDDM; Cirrhosis; heart valve; Hepatitis; jd3 Karposi Sarcoma (left leg); kidney failure; - PSHx: 00:18 heart valve replacement; jd3 - Immunization history:: Adult Immunizations up to date. - Social history:: Smoking status: Patient/guardian denies using tobacco. - Ebola Screening: : Patient negative for fever greater than or equal to 101.5 degrees Fahrenheit, and additional compatible Ebola Virus Disease symptoms. - Family history:: not pertinent. - Hospitalizations: : No recent hospitalization is reported. ROS: 00:50 Constitutional: Negative for fever, chills, and weight loss, Abdomen/GI: Negative for rn abdominal pain, nausea, vomiting, and constipation, Skin: Negative for injury, and discoloration, Neuro: Negative for headache, weakness, numbness, tingling, and seizure. Exam: 00:50 Constitutional: Thin male, no acute distress Abdomen/GI: Soft, non-tender, with rn normal bowel sounds. No distension or tympany. No guarding or rebound. No evidence of tenderness throughout. + multiple small skin tears at anal verge, no hemorrhoid, no fluctuance or pain, no masses, no pinworms Skin: Warm, dry with normal turgor. Vital Signs: 00:18 BP 137 / 82; Pulse 85; Resp 17 S; Temp 98.9(O); Pulse Ox 99% on R/A; Weight 73.94 kg jd3 (R); Height 5 ft. 7 in. (170.18 cm) (R); Pain 8/10; 00:18 Body Mass Index 25.53 (73.94 kg, 170.18 cm) jd3 MDM: 00:04 Patient medically screened. rn 00:50 ED course: Reports HIV + but viral load undetectable and compliant with meds, seen at [facility].. 00:50 Differential diagnosis: hemorrhoids, fissure. Data reviewed: vital signs, nurses notes, rn and as a result, I will discharge patient. Counseling: I had a detailed discussion with the patient and/or guardian regarding: the historical points, exam findings, and any diagnostic results supporting the discharge/admit diagnosis, the need for outpatient follow up, to return to the emergency department if symptoms worsen or persist or if there are any questions or concerns that arise at home. Administered Medications: No medications were administered Disposition: 07/25/18 00:53 Discharged to Home. Impression: Acute anal fissure. - Condition is Stable. - Discharge Instructions: Anal Fissure, Adult, Diarrhea, Adult, How to Take a Sitz Bath. - Prescriptions for Anusol- HC 2.5 % Rectal Cream - Apply to affected area 1 application by TOPICAL route every 8 hours As needed; 30 gram. - Medication Reconciliation Form, Thank You Letter, Antibiotic Education, Prescription Opioid Use form. - Follow up: Phuc Jones MD; When: As needed; Reason: Recheck today's complaints, Re-evaluation by your physician. - Problem is new. - Symptoms have improved. Signatures: Manuel Montgomery MD MD rn Valencia Goetz RN RN ak1 Dean Cee RN RN jd3 Corrections: (The following items were deleted from the chart) 01:07 00:53 07/25/2018 00:53 Discharged to Home. Impression: Acute anal fissure. Condition is ak1 Stable. Forms are Medication Reconciliation Form, Thank You Letter, Antibiotic Education, Prescription Opioid Use. Follow up: Phuc Jones; When: As needed; Reason: Recheck today's complaints, Re-evaluation by your physician. Problem is new. Symptoms have improved. rn
[2018-07-25 02:44] VITALS: BP 137/82; TEMP 98.9; O2SAT 99
== END 2018-07-25 01:07 | disposition home or self-care (01) ==
LOC: ER 23:50
DX: K60.0 Acute anal fissure (principal); N19 Unspecified kidney failure; E11.9 Type 2 diabetes mellitus without complications; E78.5 Hyperlipidemia, unspecified; Z21 Asymptomatic human immunodeficiency virus [HIV] infection status; Z79.01 Long term (current) use of anticoagulants; Z79.82 Long term (current) use of aspirin; Z95.2 Presence of prosthetic heart valve; Z99.2 Dependence on renal dialysis; Z88.5 Allergy status to narcotic agent
CPT/HCPCS: 99283

== ENCOUNTER 2018-07-28 19:02 | Emergency (ER) | payer OTHER ==
--- OUTSIDE RECORDS SUMMARY | 2018-07-28 19:05 | XMS REPORT ---
:1955 [facility] Address [address] [place] [address] Care Team Providers Name Role Phone UNKNOWN, REFFERING Primary Care Provider Unavailable MAYLIN HOLLOWAY S Unavailable Unavailable ELIANA, NEEL Unavailable Unavailable SHILA JAFFE MD, M.D. Unavailable Unavailable Problems This patient has no known problems. Allergies, Adverse Reactions, Alerts This patient has no known allergies or adverse reactions. Medications This patient has no known medications. Encounters Start End Encounter Admission Attending Care Care Encounter Date/Time Date/Time Type Type Clinicians Facility Department ID 2017-11-18 2017-11-20 [id number] 13:43:00 13:54:00 MAYLIN 2017-11-07 2017-11-07 Emergency E [facility] [id number] 20:22:00 20:22:00 2017-10-06 2017-10-06 [facility] [id number] 14:25:00 14:25:00 NEEL Results Test Description Test Time Test Comments Text Results Atomic Results Result Comments CD4/CD8 Ratio Profile 2017-11-27 08:04:00 Test Item Value Reference Range Comments Absolute CD 4 [place]inson (test qmls=939866) 188 /uL 359-1519 % CD 4 Pos. Lymph. (test wmzt=065788) 37.6 % 30.8-58.5 Abs. CD 8 Suppressor (test zdyt=697250) 183 /uL 109-897 % CD 8 Pos. Lymph. (test rklm=809496) 36.6 % 12.0-35.5 CD4/CD8 Ratio (test slec=470965) 1.03 0.92-3.72 WBC (test ximy=200654) 5.0 x10E3/uL 3.4-10.8 RBC (test rnxp=685553) 3.00 x10E6/uL 4.14-5.80 Hemoglobin (test ixbv=416366) 9.6 g/dL 13.0-17.7 Hematocrit (test cwta=047346) 27.6 % 37.5-51.0 MCV (test uiua=108290) 92 fL 79-97 MCH (test vkxy=085903) 32.0 pg 26.6-33.0 MCHC (test yglc=134308) 34.8 g/dL 31.5-35.7 RDW (test johf=229794) 15.5 % 12.3-15.4 Platelets (test bgcm=243677) 113 x10E3/uL 150-379 Neutrophils (test ybrg=371333) 84 % Not Estab. Lymphs (test eugw=447264) 9 % Not Estab. Monocytes (test dsza=861573) 6 % Not Estab. Eos (test noqx=517050) 1 % Not Estab. Basos (test mcgy=666148) 0 % Not Estab. Neutrophils (Absolute) (test kubu=681571) 4.2 x10E3/uL 1.4-7.0 Lymphs (Absolute) (test sofi=711652) 0.5 x10E3/uL 0.7-3.1 Monocytes(Absolute) (test frqw=606658) 0.3 x10E3/uL 0.1-0.9 Eos (Absolute) (test wcss=943513) 0.0 x10E3/uL 0.0-0.4 Baso (Absolute) (test cfff=593850) 0.0 x10E3/uL 0.0-0.2 Immature Granulocytes (test zlin=164845) 0 % Not Estab. Immature Grans (Abs) (test hasu=122297) 0.0 x10E3/uL 0.0-0.1 Culture, Blood [id number] 08:42:00Specimen: BloodCollected: 11/19/2017 00 :21 Status: Final Last Updated: 11/24/2017 08:42 Culture Result (Final) ( Final) No Growth After 5 DaysCulture, Blood Ezwiplk6219-14-07 08:42: 00Specimen: BloodCollected: 11/18/2017 20:30 Status: Final Last Updated: 08:42 Culture Result (Final) (Final) No Growth After 5 DaysPOC Glucose, [id number] 11:51:00 Test Item Value Reference Range Comments POC Glucose (test 148 mg/dL 70-115 Notify RN or MDIf you consider code=POCGLUC) your patient critically ill, the Madeline Accu-Chek InformII metershould not be used for Glucose determinations.Draw a venous Glucose and send to the Main Lab for Analysis. CK [id number] 07:42:00 Test Item Value Reference Range Comments CK (test code=CK) na U/L 39-308 CKMB (test code=CKMB) 4.0 ng/mL 0.0-4.9 CKMB% (test code=CKMBP) 0.0 % 0.0-3.4 Qis-Cdt3908-10-21 07:39:00 Test Item Value Reference Range Comments NT ProBnp (test code=PBNP) >52398 pg/mL 0-124 Troponin [id number] 07:18:00 Test Item Value Reference Range Comments Troponin T (test code=MADHAV) 0.103 ng/mL 0.000-0.090 Lactate Ldowggnhnaihe7487-98-70 07:18:00 Test Item Value Reference Range Comments LDH (test code=LDH) 271 U/L 135-225 POC Glucose, [id number] 06:50:00 Test Item Value Reference Range Comments POC Glucose (test 154 mg/dL 70-115 Notify RN or MDIf you consider code=POCGLUC) your patient critically ill, the [place]eline Accu-Chek InformII metershould not be used for Glucose determinations.Draw a venous Glucose and send to the Main Lab for Analysis. CK [id number] 01:08:00 Test Item Value Reference Range Comments CK (test code=CK) na U/L 39-308 CKMB (test code=CKMB) 3.6 ng/mL 0.0-4.9 CKMB% (test code=CKMBP) 0.0 % 0.0-3.4 Troponin [id number] 01:08:00 Test Item Value Reference Range Comments Troponin T (test code=MADHAV) 0.106 ng/mL 0.000-0.090 XR CHEST 1 [id number] 21:02:01CLINICAL INFORMATION: Vascular congestion.Dictation Location: R 16Comparison: 11/18/2017 showed perihilar and lower lobe opacities. Technique: Portable AP 1951 hoursFINDINGS: Monitoring electrodes overlie the chest wall. Cardiomegaly withincreasing central vascular interstitial prominence with bibasilaropacities and effusions. No interval bone changes.IMPRESSION: Changes could indicate worsening cardiac decompensation orfluid overload.POC Glucose, [id number] 20:15:00 Test Item Value Reference Range Comments POC Glucose (test 139 mg/dL 70-115 If you consider your patient code=POCGLUC) critically ill, the [place] Accu-Chek InformII metershould not be used for Glucose determinations.Draw a venous Glucose and send to the Main Lab for Analysis. POC Glucose, [id number] 16:52:00 Test Item Value Reference Range Comments POC Glucose (test 123 mg/dL 70-115 If you consider your patient code=POCGLUC) critically ill, the Madeline Accu-Chek InformII metershould not be used for Glucose determinations.Draw a venous Glucose and send to the Main Lab for Analysis. POC Glucose, [id number] 12:04:00 Test Item Value Reference Range Comments POC Glucose (test 140 mg/dL 70-115 If you consider your patient code=POCGLUC) critically ill, the [place]eline Accu-Chek InformII metershould not be used for Glucose determinations.Draw a venous Glucose and send to the Main Lab for Analysis. POC Glucose, [id number] 08:01:00 Test Item Value Reference Range Comments POC Glucose (test 126 mg/dL 70-115 If you consider your patient code=POCGLUC) critically ill, the Madeline Accu-Chek InformII metershould not be used for Glucose determinations.Draw a venous Glucose and send to the Main Lab for Analysis. CK [id number] 06:03:00 Test Item Value Reference Range Comments CK (test code=CK) na U/L 39-308 CKMB (test code=CKMB) 2.8 ng/mL 0.0-4.9 CKMB% (test code=CKMBP) 0.0 % 0.0-3.4 Basic Metabolic [id number] 05:51:00 Test Item Value Reference Range Comments [...] race is not provided, and the patient isAfrican-Kaz[place], multiply by 1.212. If sex is not provided, and thepatient is female, multiply by 0.742. Results for patients <18 years ofage have not been validated by the MDRD study and should be interpretedwith caution.eGFR Result Interpretation:eGFR > or=60 is in the Normal RangeeGFR < 60 may mean kidney diseaseeGFR < 15 may mean kidney failureRanges recommended by the National Kidney Foundation,http://nkdep.nih .gov Magnesium, [id number] 05:51:00 Test Item Value Reference Range Comments Magnesium (test code=MG) 1.9 mg/dL 1.7-2.5 [id number] 05:51:00 Test Item Value Reference Range Comments Phosphorus (test code=PO4) 3.8 mg/dL 2.70-4.50 Omf-Tka5523-34-20 05:51:00 Test Item Value Reference Range Comments NT ProBnp (test code=PBNP) >03368 pg/mL 0-124 Troponin [id number] 05:51:00 Test Item Value Reference Range Comments Troponin T (test code=MADHAV) 0.126 ng/mL 0.000-0.090 CBC with Qatxgmdhryxo3966-32-76 05:34:00 Test Item Value Reference Range Comments [...] Lymph Abs (test code=ALYMPH) 0.4 K/cumm 0.5-4.6 [place] Abs (test code=AMONO) 0.6 K/cumm 0.0-1.2 Eos Abs (test code=AEOS) 0.13 K/cumm 0.00-0.74 Baso Abs (test code=ABASO) 0.0 K/cumm 0.00-0.21 CK [id number] 18:39:00 Test Item Value Reference Range Comments CK (test code=CK) HIDE U/L 39-308 CKMB (test code=CKMB) 3.2 ng/mL 0.0-4.9 CKMB% (test code=CKMBP) HIDE % 0.0-3.4 Troponin [id number] 18:39:00 Test Item Value Reference Range Comments Troponin T (test code=MADHAV) 0.126 ng/mL 0.000-0.090 Hep B Surface [id number] 18:39:00 Test Item Value Reference Range Comments Hep Bs Ag (test code=HBSAG) Nonreactive Non-Reactive POC Glucose, [id number] 16:47:00 Test Item Value Reference Range Comments POC Glucose (test 143 mg/dL 70-115 If you consider your patient code=POCGLUC) critically ill, the [place]eline Accu-Chek InformII metershould not be used for Glucose determinations.Draw a venous Glucose and send to the Main Lab for Analysis. XR CHEST 1 [id number] 08:18:18EXAM: Portable AP chest x-rayLOCATION: R16 INDICATION: CoughCOMPARISON: 11/07/2017FINDINGS:The cardiacsilhouette is stable enlargement. There are increasinginterstitial opacities, most evident in the perihilar regions and lowerlobes. There is blunting of the costophrenic angles bilaterally. Thereis no discernible pneumothorax.IMPRESSION:Increasing perihilar and bilateral lower lobe opacities compared to theprior exam dated 11/07. Findings may represent pulmonary edema orpneumonia in the appropriate clinical setting.Comprehensive Metabolic [id number] 08:05:00 Test Item Value Reference Range Comments [...] race is not provided, and the patient isAfrican-Kazakh, multiply by 1.212. If sex is not provided, and thepatient is female, multiply by 0.742. Results for patients <18 years ofage have not been validated by the MDRD study and should be interpretedwith caution.eGFR Result Interpretation:eGFR > or=60 is in the Normal RangeeGFR < 60 may mean kidney diseaseeGFR < 15 may mean kidney failureRanges recommended by the National Kidney Foundation,http://nkdep.nih .gov CK [id number] 08:05:00 Test Item Value Reference Range Comments CK (test code=CK) 149 U/L 39-308 Troponin [id number] 08:02:00 Test Item Value Reference Range Comments Troponin T (test code=MAHDAV) 0.114 ng/mL 0.000-0.090 Dqv-[id number] 08:02:00 Test Item Value Reference Range Comments NT ProBnp (test code=PBNP) >48052 pg/mL 0-124 CBC with Wkbpicabomth2894-51-20 07:53:00 Test Item Value Reference Range Comments [...] Lymph Abs (test code=ALYMPH) 0.9 K/cumm 0.5-4.6 [place] Abs (test code=AMONO) 0.4 K/cumm 0.0-1.2 Eos Abs (test code=AEOS) 0.11 K/cumm 0.00-0.74 Baso Abs (test code=ABASO) 0.0 K/cumm 0.00-0.21 XR CHEST 1 [id number] 21:38:09EXAM: CHEST ONE VIEWINDICATION: CoughCOMPARISON: October 06, 2017TECHNIQUE: AP view of the chest.FINDINGS: The cardiomediastinal silhouette is unchanged. Mild congestive changesbilaterally. No pneumothorax or pleural effusion is identified. Theosseous structures are unremarkable.IMPRESSION: Diffuse congestive changes bilaterally.LOCATION: R16US DUPLX EXT VEINS COMPR, [id number] 20:09:34AFTER HOURS SERVICE ON: 10/06/2017 8: 09 PMRIGHT Lower Extremity Venous Duplex Doppler ExaminationLocation Code N76Kjupizd: SwellingTechnique: Real-time castillo scale, Doppler spectral analysis [...] imaged vessels.AFTER HOURS SERVICE ON: 10/06/2017 8:09 [facility] Extremity Venous Duplex Doppler ExaminationLocation Code W21Qkzlble : SwellingTechnique: Real-time castillo scale, Doppler spectral [...] of DVT in the imaged vessels.Comprehensive Metabolic [id number] 17 :40:00 Test Item Value Reference Range [...] race is not provided, and the patient isAfrican-Kazakh, multiply by 1.212. If sex is not [...] the National Kidney Foundation,http://nkdep.nih .gov CBC with Qzvmtlejjqek3704-71-70 17:15:00 Test Item Value Reference Range Comments [...] Lymph Abs (test code=ALYMPH) 1.3 K/cumm 0.5-4.6 [place] Abs (test code=AMONO) 0.6 K/cumm 0.0-1.2 Eos Abs (test code=AEOS) 0.12 K/cumm 0.00-0.74 Baso Abs (test code=ABASO) 0.0 K/cumm 0.00-0.21 XR CHEST 1 [id number] 16:56:42CHEST 1 VIEW: [id number]: coughCOMPARISON: Sep 24, 2017FINDINGS:The heart is enlarged. There is engorgement of the central pulmonaryvasculature. There are patchy bibasilar areas of infiltrate oratelectasis with bilateral effusions. No pneumothorax is present. IMPRESSION: 1. Patchy areas of atelectasis or infiltrate in the lung bases withsmall bilateral effusions and vascular congestion most likely secondaryto CHF.Culture, Blood [id number] 14:58:00Specimen: BloodCollected: 2017 13:05 Status: Final Last Updated: 09/29/2017 14:58 (1) ER Bed 1 Culture Result (Final) (Final) No Growth After 5 DaysCulture, Blood [id number] 14:58:00Specimen: BloodCollected: 09/24/2017 12:50 Status: Final Last Updated: 09/29/2017 14:58 (1) ER Bed 1 Culture Result (Final) (Final) No Growth After 5 DaysPOC Glucose, [id number] 10:54:00 Test Item Value Reference Range Comments POC Glucose (test 168 mg/dL 70-115 If you consider your patient code=POCGLUC) critically ill, the [place] Accu-Chek InformII metershould not be used for Glucose determinations.Draw a venous Glucose and send to the Main Lab for Analysis. POC Glucose, [id number] 07:16:00 Test Item Value Reference Range Comments POC Glucose (test 143 mg/dL 70-115 If you consider your patient code=POCGLUC) critically ill, the [place] Accu-Chek InformII metershould not be used for Glucose determinations.Draw a venous Glucose and send to the Main Lab for Analysis. CBC with Chydgfxbkodi1747-81-84 07:15:00 Test Item Value Reference Range Comments [...] Lymph Abs (test code=ALYMPH) 1.3 K/cumm 0.5-4.6 [place] Abs (test code=AMONO) 0.7 K/cumm 0.0-1.2 Eos Abs (test code=AEOS) 0.07 K/cumm 0.00-0.74 Baso Abs (test code=ABASO) 0.0 K/cumm 0.00-0.21 Magnesium, [id number] 07:03:00 Test Item Value Reference Range Comments Magnesium (test code=MG) 2.0 mg/dL 1.7-2.5 Basic Metabolic [id number] 07:03:00 Test Item Value Reference Range Comments [...] race is not provided, and the patient isAfrican-Kazakh, multiply by 1.212. If sex is not [...] the National Kidney Foundation,http://nkdep.nih .gov POC Glucose, [id number] 21:40:00 Test Item Value Reference Range Comments POC Glucose (test 129 mg/dL 70-115 If you consider your patient code=POCGLUC) critically ill, the [place] Accu-Chek InformII metershould not be used for Glucose determinations.Draw a venous Glucose and send to the Main Lab for Analysis. Hep B Surface [id number] 18:36:00 Test Item Value Reference Range Comments Hep Bs Ag (test code=HBSAG) Nonreactive Non-Reactive POC Glucose, [id number] 10:51:00 Test Item Value Reference Range Comments POC Glucose (test 216 mg/dL 70-115 If you consider your patient code=POCGLUC) critically ill, the [place] Accu-Chek InformII metershould not be used for Glucose determinations.Draw a venous Glucose and send to the Main Lab for Analysis. POC Glucose, [id number] 07:57:00 Test Item Value Reference Range Comments POC Glucose (test 164 mg/dL 70-115 If you consider your patient code=POCGLUC) critically ill, the [place]eline Accu-Chek InformII metershould not be used for Glucose determinations.Draw a venous Glucose and send to the Main Lab for Analysis. POC Glucose, [id number] 19:47:00 Test Item Value Reference Range Comments POC Glucose (test 140 mg/dL 70-115 Notify RN or MDIf you consider code=POCGLUC) your patient critically ill, the [place] Accu-Chek InformII metershould not be used for Glucose determinations.Draw a venous Glucose and send to the Main Lab for Analysis. Troponin [id number] 19:36:00 Test Item Value Reference Range Comments Troponin T (test code=MADHAV) 0.121 ng/mL 0.000-0.090 CK [id number] 19:25:00 Test Item Value Reference Range Comments CK (test code=CK) 160 U/L 39-308 The value HIDE originally released by [employer] on 09/25/2017 19:12 waschanged to 160 by [employer] on 09/25/2017 19:24 CKMB (test code=CKMB) 3.0 ng/mL 0.0-4.9 CKMB% (test code=CKMBP) 1.9 % 0.0-3.4 The value HIDE originally released by [employer] on 09/25/2017 19:12 waschanged to 1.9 by [email or web address] on 09/25/2017 19:24 POC Glucose, [id number] 16:42:00 Test Item Value Reference Range Comments POC Glucose (test 123 mg/dL 70-115 If you consider your patient code=POCGLUC) critically ill, the [place] Accu-Chek InformII metershould not be used for Glucose determinations.Draw a venous Glucose and send to the Main Lab for Analysis. POC Glucose, [id number] 12:09:00 Test Item Value Reference Range Comments POC Glucose (test 141 mg/dL 70-115 If you consider your patient code=POCGLUC) critically ill, the [place] Accu-Chek InformII metershould not be used for Glucose determinations.Draw a venous Glucose and send to the Main Lab for Analysis. Hep B Surface [id number] 07:59:00 Test Item Value Reference Range Comments Hep Bs Ag (test code=HBSAG) Nonreactive Non-Reactive CK [id number] 07:43:00 Test Item Value Reference Range Comments CK (test code=CK) n/a U/L 39-308 CKMB (test code=CKMB) 2.4 ng/mL 0.0-4.9 CKMB% (test code=CKMBP) 0.0 % 0.0-3.4 Troponin [id number] 07:38:00 Test Item Value Reference Range Comments Troponin T (test code=MADHAV) 0.134 ng/mL 0.000-0.090 Thyroid Stimulating Hormone (TSH)2017-09-25 07:38:00 Test Item Value Reference Range Comments TSH (test code=TSH) 1.10 mIU/mL 0.270-4.200 [id number] 07:38:00 Test Item Value Reference Range Comments Phosphorus (test code=PO4) 3.4 mg/dL 2.70-4.50 Comprehensive Metabolic [id number] 07:38:00 Test Item Value Reference Range Comments [...] race is not provided, and the patient isAfrican-[place], multiply by 1.212. If sex is not provided, and thepatient is female, multiply by 0.742. Results for patients <18 years ofage have not been validated by the MDRD study and should be interpretedwith caution.eGFR Result Interpretation:eGFR > or=60 is in the Normal RangeeGFR < 60 may mean kidney diseaseeGFR < 15 may mean kidney failureRanges recommended by the National Kidney Foundation,http://nkdep.nih .gov Magnesium, [id number] 07:38:00 Test Item Value Reference Range Comments Magnesium (test code=MG) 2.0 mg/dL 1.7-2.5 CK [id number] 07:31:00 Test Item Value Reference Range Comments CK (test code=CK) 159 U/L 39-308 Lipid [id number] 07:31:00 Test Item Value Reference Range Comments Cholesterol (test 118 mg/dL 0-200 code=CHOL) Triglycerides (test 170 mg/dL 9-200 code=TRIG) HDL (test code=HDL) 49 mg/dL 40-60 Chol/HDL (test 2.4 Ratio 0.0-5.0 code=CHOLPHDL) LDL, Calculated (test 35 0-130 (NOTE)RISK OF HEART code=LDLC) DISEASEPublished by [place] Heart AssociationAnalyte Optimal Boderline Increased RiskCHOL <200 200-239 >240TRIG <150 150-199 >200HDL Male: >60 <40HDL Female: >60 <50LDL <100 130-159 >160LDL NEAR OPTIMAL IS 100-129 VLDL (test code=VLDL) 34 mg/dL 5-40 LDL/HDL (test code=LDLPHDL) 1 Glycosylated Nplskngihb0785-73-00 07:24:00 Test Item Value Reference Range Comments HBA1c (test code=HBA1C) 5.0 % 4.8-5.9 CBC with Yeuvmzmfptcg3644-60-01 07:20:00 Test Item Value Reference Range Comments [...] Lymph Abs (test code=ALYMPH) 0.8 K/cumm 0.5-4.6 [place] Abs (test code=AMONO) 0.5 K/cumm 0.0-1.2 Eos Abs (test code=AEOS) 0.10 K/cumm 0.00-0.74 Baso Abs (test code=ABASO) 0.0 K/cumm 0.00-0.21 POC Glucose, [id number] 07:03:00 Test Item Value Reference Range Comments POC Glucose (test 147 mg/dL 70-115 If you consider your patient code=POCGLUC) critically ill, the [place] Accu-Chek InformII metershould not be used for Glucose determinations.Draw a venous Glucose and send to the Main Lab for Analysis. POC Glucose, [id number] 22:05:00 Test Item Value Reference Range Comments POC Glucose (test 134 mg/dL 70-115 If you consider your patient code=POCGLUC) critically ill, the [place] Accu-Chek InformII metershould not be used for Glucose determinations.Draw a venous Glucose and send to the Main Lab for Analysis. Blood Gas+Lytes+Glu+Ca+Hgb+Hct+[id number] 18:31:00 Test Item Value Reference Range Comments [...] Celcius code=PTTEMP) Comment (test code=COMMENT) [email or web address] Puncture Site (test code=PUNSITE) Radial. R Drawing Tech ID (test medel fi code=DRAWTECH) iPAP (test code=IPAP) 0 cmH2O Respiratory Rate (test code=RESP 0 RATE) Lactic Acid, Blood Gas (test 0.4 mmol/L code=BGLA) CT CHEST W/O [id number] 16:48:03CT CHEST W/O CONTRASTLOCATION CODE: R16 HISTORY: [...] bilateral axillary, prevascular, andparatracheal lymph nodes.Influenza B [id number] 14:36:00Specimen: NasalCollected: 09/24/2017 14:04 Status: Final Last [...] Culture of negative samples is recommended.Influenza A [id number] 14:34:00Specimen: NasalCollected: 09/24/2017 14:04 Status: Final Last [...] Culture of negative samples is recommended.Comprehensive Metabolic [id number] 13:54:00 Test Item Value Reference Range Comments [...] race is not provided, and the patient isAfrican-[place], multiply by 1.212. If sex is not provided, and thepatient is female, multiply by 0.742. Results for patients <18 years ofage have not been validated by the MDRD study and should be interpretedwith caution.eGFR Result Interpretation:eGFR > or=60 is in the Normal RangeeGFR < 60 may mean kidney diseaseeGFR < 15 may mean kidney failureRanges recommended by the National Kidney Foundation,http://nkdep.nih .gov Troponin [id number] 13:54:00 Test Item Value Reference Range Comments Troponin T (test code=MADHAV) 0.124 ng/mL 0.000-0.090 Azs-Yzj1502-31-23 13:54:00 Test Item Value Reference Range Comments NT ProBnp (test code=PBNP) >11845 pg/mL 0-124 CK [id number] 13:54:00 Test Item Value Reference Range Comments CK (test code=CK) 222 U/L 39-308 CKMB (test code=CKMB) 3.1 ng/mL 0.0-4.9 CKMB% (test code=CKMBP) 1.4 % 0.0-3.4 CK [id number] 13:54:00 Test Item Value Reference Range Comments CK (test code=CK) 222 U/L 39-308 Partial Thromboplastin [id number] 13:43:00 Test Item Value Reference Range Comments aPTT (test code=PTT) 35.70 seconds 24.39-37.25 Prothrombin [id number] 13:43:00 Test Item Value Reference Range Comments PT (test code=PT) 11.30 seconds 9.78-13.35 INR (test code=INR) 0.99 Ratio 0.6-1.2 Lactic Acid [id number] 13:41:00 Test Item Value Reference Range Comments Lactic Acid, Bld (test code=LAC) 1.3 mmol/L 0.5-1.9 CBC with Lndtdjbfrcqm9998-27-70 13:32:00 Test Item Value Reference Range Comments [...] Lymph Abs (test code=ALYMPH) 1.2 K/cumm 0.5-4.6 [place] Abs (test code=AMONO) 0.6 K/cumm 0.0-1.2 Eos Abs (test code=AEOS) 0.23 K/cumm 0.00-0.74 Baso Abs (test code=ABASO) 0.0 K/cumm 0.00-0.21 XR CHEST 1 [id number] 12:50:14XR CHEST 1 VIEWLOCATION: [id number]: None.INDICATION: CoughDISCUSSION:A single portable chest radiograph was [...]
--- OUTSIDE RECORDS SUMMARY | 2018-07-28 19:06 | XMS REPORT ---
:1955 Author Organization [facility] Address Unavailable , Allergies, Adverse [...] Patient Date Date Name Instruction AMLODIPINE AMLODIPINE 34958401683 Active Mo Active BESYLATE 10 MG BESYLATE Dicks OD ORAL TABLET CALCIUM ACETATE CALCIUM ACETATE 95807864951 Active Mo Active (PHOS BINDER) (PHOS BINDER) Dicks OD 667 MG ORAL CAPSULE CRESTOR 5 MG ROSUVASTATIN 39645598102 Active Mo Active ORAL TABLET CALCIUM Dicks OD EPIVIR SOLUTION LAMIVUDINE SOLN 94366722835 Active Mo Active Dicks OD ISENTRESS RALTEGRAVIR 16449605169 Active Mo Active TABLET POTASSIUM TABS Dicks OD KALETRA TABLET LOPINAVIR-RITONAVI 84205151375 Active Mo Active R TABS Dicks OD LAMIVUDINE LAMIVUDINE TABS 48533761321 Active Mo Active TABLET Dicks OD PROAIR HFA ALBUTEROL SULFATE 38066227333 Active Mo Active AEROSOL AERS Dicks OD SOLUTION PEDRO-EAMON RX B-COMPLEX W/ C & 23873456937 Active Mo Active TABLET FOLIC ACID TABS Dicks OD VITAMIN D2 ERGOCALCIFEROL 66242357238 Active Mo Active TABLET TABS Dicks OD Diagnostic Results Date Name Value Unit Range Description Append: Eye Exam - Hematology T-helper cells (CD4) count 602 uL Append: Eye Exam - Serology HIV-1RNA, serum, by PCR, quantitative 20 {Copies}/mL Procedures Code Procedure Name Date Entry Date Standard Description CPT-19831 Dispensing Visit (UNLIVSTED OPHTHALMOLOGICAL 10:14:39 CDT SERVICE/PROCEDURE) CPT-42019 Est Patient Comprehensive Opt - 98409 15:29:32 CDT CPT-18780 New Patient Intermediate Opt - 07176 14:28:41 CDT
[2018-07-28 19:56] LABS: Absolute Neutrophil 3.1 K/uL (1.8-8.0); Basophils % 0.7 % (0-1.3); Eosinophils % 1.8 % (0-4.4); Hematocrit 34.8 % (39.6-49.0); MCH 33.6 pg (27.0-35.0); MCV 99.9 fL (80-100); MPV 7.5 fL (7.6-11.3); Monocytes % 18.5 % (3.3-12.3); RBC Red Blood Cell Count 3.49 M/uL (4.33-5.43)
[2018-07-28 19:59] LABS: Protime INR 1.58
--- NOTE | 2018-07-28 20:18 | RAD REPORT ---
EXAM DESCRIPTION: RAD - Chest Single View - 07/28/2018 7:57 pm CLINICAL HISTORY: Fall, chest pain, chest trauma COMPARISON: Two view chest July 05, portable chest May 16 TECHNIQUE: AP portable chest image was obtained 1950 hours . FINDINGS: Left lung field is clear. No left-sided pneumothorax or pleural effusion. Cardiomegaly is present similar to comparison. Valve replacement changes are evident with sternotomy wires. No right- sided pneumothorax. Right-sided pleural effusion is present. Pleural fluid is similar to the recent c hest imaging. Pleural fluid volume is accentuated when portable technique is utilized. No acute bony abnormality seen. No acute aortic findings suspected. IMPRESSION: Large right pleural effusion not substantially different from December 03. No pneumothorax.
--- NOTE | 2018-07-28 20:25 | RAD REPORT ---
EXAM DESCRIPTION: CT - Thorax Wo Con - 07/28/2018 8:03 pm CLINICAL HISTORY: Fall, chest trauma COMPARISON: Chest films same date, two view chest July 05 TECHNIQUE: Axial 5 mm thick images of the chest were obtained without IV contrast. All CT scans are performed using dose optimization technique as appropriate and may include automated exposure control or mA/KV adjustment according to patient size. FINDINGS: Left lung field is clear. Very minimal left pleural effusion is present. No pneumothorax o n the left. Large right pleural effusion is present layering along the posterior chest from base to a pex. No loculation. No acute right upper lobe infiltrative process. There is near complete atelectasi s of the right lower lobe. Patchy opacification is seen in the superior segment that could be atelect asis or a small infiltrate component. Partial atelectasis of the right middle lobe is noted. There is no right-sided pneumothorax. Nonspecific mediastinal lymph nodes are present. Postsurgical clips are seen in the anterior mediasti num. Coronary artery calcifications are present. Mitral valve surgical changes are noted. There is an additional surgical device near the aortopulmonic window. Cardiomegaly is present without pericardia l effusion. No gross aortic or pulmonary artery finding suspected. Assessment is limited in the abse nce of IV contrast. No displaced or nondisplaced rib fractures identifiable. Sternotomy wires are in place. There is no b kala union at the sternotomy site. Age of the surgery is uncertain. This could be incomplete healing f rom recent surgery or a chronic fibrous union. IMPRESSION: Large right pleural effusion. There is no pneumothorax. Left pleural effusion is minimal . Patchy opacification in the superior segment right lower lobe could be additional atelectasis or a sm all infiltrate. Mass lesion is unlikely but full assessment is limited in the setting of large pleura l effusion. No rib fractures seen. There is no bony union at the sternotomy. This may be due to recent surgery or possibly a chronic fibrous union. Surgery date is unknown.
[2018-07-28 20:54] LABS: ALT/SGPT 46 U/L (12-78); AST/SGOT 58 U/L (15-37); Albumin 3.2 g/dL (3.4-5.0); Alkaline Phosphatase 114 U/L (45-117); BUN Blood Urea Nitrogen 46 mg/dL (7-18); Bicarbonate 29 mmol/L (21-32); Bilirubin Direct 0.6 mg/dL (0-0.2); Bilirubin Total 1.2 mg/dL (0.2-1.0); Glucose Level 84 mg/dL (74-106); Magnesium 2.2 mg/dL (1.8-2.4); NT PRO-BNP 82368 pg/mL (<125); Potassium 3.3 mmol/L (3.5-5.1); Protein, Total 9.2 g/dL (6.4-8.2); Sodium Level 136 mmol/L (136-145); Troponin (Emerg Dept Use Only) < 0.02 ng/mL (0.0-0.045)
--- NOTE | 2018-07-28 20:58 | EDPHYS ---
Physician Documentation [facility] Name: Salvatore Goldman Age: 63 yrs Sex: Male : 1955 Arrival Date: 07/28/2018 Time: 19:03 Bed 5 Private MD: out of town, doctor ED Physician Boston Johnson HPI: 07/28 19:51 This 63 yrs old Black Male presents to ER via Ambulatory with complaints of Fall Injury beny - CHEST. 19:51 Details of fall: The patient fell from an upright position, while walking. Onset: The beny symptoms/episode began/occurred 2 day(s) ago. Associated injuries: The patient sustained injury to the chest. Severity of symptoms: At their worst the symptoms were mild, moderate, in the emergency department the symptoms are unchanged. The patient has not experienced similar symptoms in the past. Historical: - Allergies: 19:22 codeine sulfate; tl2 - Home Meds: 19:22 Isentress 400 mg Oral tab 1 tab 2 times per day [Active]; aspirin 81 mg Oral chew 1 tab tl2 once daily [Active]; atorvastatin 20 mg Oral tab 1 tab once daily [Active]; docusate sodium 100 mg Oral tab 1 tab 2 times per day [Active]; Kaletra 200-50 mg Oral tab 2 tabs 2 times per day [Active]; lamivudine 10 mg/mL Oral soln 2.5 mL once daily [Active]; metoprolol tartrate 25 mg Oral tab 1 tab once daily [Active]; Vitamin D Oral 22540 unit WEEKLY [Active]; warfarin 5 mg Oral tab 1 tab once daily [Active]; - PMHx: 19:22 Cirrhosis; Diabetes - NIDDM; Dialysis; heart valve; Hepatitis; HIV; Hyperlipidemia; tl2 Karposi Sarcoma (left leg); kidney failure; - Immunization history:: Adult Immunizations up to date. - Social history:: Smoking status: Patient/guardian denies using tobacco. - Ebola Screening: : No symptoms or risks identified at this time. - Family history:: not pertinent. ROS: 19:51 Constitutional: Negative for fever, chills, and weight loss, Eyes: Negative for injury, beny pain, redness, and discharge, ENT: Negative for injury, pain, and discharge, Neck: Negative for injury, pain, and swelling, Abdomen/GI: Negative for abdominal pain, nausea, vomiting, diarrhea, and constipation, Back: Negative for injury and pain, : Negative for injury, bleeding, discharge, and swelling, MS/Extremity: Negative for injury and deformity, Skin: Negative for injury, rash, and discoloration, Neuro: Negative for headache, weakness, numbness, tingling, and seizure, Psych: Negative for depression, anxiety, suicide ideation, homicidal ideation, and hallucinations, Allergy/Immunology: Negative for hives, rash, and allergies, Endocrine: Negative for neck swelling, polydipsia, polyuria, polyphagia, and marked weight changes, Hematologic/Lymphatic: Negative for swollen nodes, abnormal bleeding, and unusual bruising. 19:51 Cardiovascular: Positive for chest pain, of the anterior aspect of right upper chest and right breast. 19:51 Respiratory: Positive for cough, shortness of breath. Exam: 19:51 Constitutional: This is a well developed, well nourished patient who is awake, alert, beny and in no acute distress. Head/Face: Normocephalic, atraumatic. Eyes: Pupils equal round and reactive to light, extra-ocular motions intact. Lids and lashes normal. Conjunctiva and sclera are non-icteric and not injected. Cornea within normal limits. Periorbital areas with no swelling, redness, or edema. ENT: Nares patent. No nasal discharge, no septal abnormalities noted. Tympanic membranes are normal and external auditory canals are clear. Oropharynx with no redness, swelling, or masses, exudates, or evidence of obstruction, uvula midline. Mucous membranes moist. Chest/axilla: Normal chest wall appearance and motion. Nontender with no deformity. No lesions are appreciated. Cardiovascular: Regular rate and rhythm with a normal S1 and S2. No gallops, murmurs, or rubs. Normal PMI, no JVD. No pulse deficits. Respiratory: Lungs have equal breath sounds bilaterally, clear to auscultation and percussion. No rales, rhonchi or wheezes noted. No increased work of breathing, no retractions or nasal flaring. Abdomen/GI: Soft, non-tender, with normal bowel sounds. No distension or tympany. No guarding or rebound. No evidence of tenderness throughout. Back: No spinal tenderness. No costovertebral tenderness. Full range of motion. Male : Normal genitalia with no discharge or lesions. Skin: Warm, dry with normal turgor. Normal color with no rashes, no lesions, and no evidence of cellulitis. Neuro: Awake and alert, GCS 15, oriented to person, place, time, and situation. Cranial nerves II-XII grossly intact. Motor strength 5/5 in all extremities. Sensory grossly intact. Cerebellar exam normal. Normal gait. Psych: Awake, alert, with orientation to person, place and time. Behavior, mood, and affect are within normal limits. 19:51 Neck: C-spine: appears grossly normal, no acute changes, Thyroid: appears normal, no acute changes, Trachea: is midline with no obvious abnormalities, no acute changes, ROM/movement: is normal, no acute changes. 19:51 Cardiovascular: JVD: is noted bilaterally, to 3 cm. 19:51 Respiratory: the patient does not display signs of respiratory distress, Respirations: normal, Breath sounds: decreased breath sounds, that are moderate, are scattered. Vital Signs: 19:22 BP 154 / 84; Pulse 94; Resp 20; Temp 98(O); Pulse Ox 99% on R/A; Weight 73.94 kg; tl2 Height 5 ft. 7 in. (170.18 cm); Pain 8/10; 20:22 BP 153 / 93; Pulse 83; Resp 19; Pulse Ox 99% on R/A; tl2 21:26 BP 161 / 97; Pulse 79; Resp 23; Pulse Ox 98% on R/A; Pain 5/10; tl2 19:22 Body Mass Index 25.53 (73.94 kg, 170.18 cm) tl2 MDM: 19:13 Patient medically screened. [facility] 19:53 Data reviewed: vital signs, nurses notes, lab test result(s), EKG, radiologic studies, [facility] CT scan, plain films. 07/28 19:37 Order name: Basic Metabolic Panel; Complete Time: 21:04 2 07/28 19:37 Order name: CBC with Diff; Complete Time: 20:28 2 07/28 19:37 Order name: LFT's; Complete Time: 21:04 2 07/28 19:37 Order name: Magnesium; Complete Time: 21:04 2 07/28 19:37 Order name: NT PRO-BNP; Complete Time: 21:04 2 07/28 19:37 Order name: PT-INR; Complete Time: 20:28 tl2 07/28 19:37 Order name: Troponin (emerg Dept Use Only); Complete Time: 21:04 tl2 07/28 19:37 Order name: XRAY Chest (1 view); Complete Time: 20:28 tl2 07/28 19:37 Order name: EKG; Complete Time: 19:37 tl2 07/28 19:37 Order name: Cardiac monitoring; Complete Time: 19:38 tl2 07/28 19:50 Order name: CT Chest Wo Con; Complete Time: 20:28 [facility] 07/28 19:37 Order name: EKG - Nurse/Tech; Complete Time: 19:38 tl2 07/28 19:37 Order name: IV Saline Lock; Complete Time: 19:38 tl2 07/28 19:37 Order name: Labs collected and sent; Complete Time: 19:38 tl2 07/28 19:37 Order name: O2 Per Protocol; Complete Time: 19:38 tl2 07/28 19:37 Order name: O2 Sat Monitoring; Complete Time: 19:38 tl2 Administered Medications: 21:28 Drug: fentaNYL (PF) 25 mcg Route: IVP; Site: right forearm; tl2 22:00 Follow up: Response: No adverse reaction; Pain is decreased tl2 21:29 Drug: Zofran 4 mg Route: IVP; Site: right forearm; tl2 22:00 Follow up: Response: No adverse reaction; Nausea is decreased tl2 21:33 Drug: Lovenox 40 mg Route: Sub-Q; Site: abdomen; tl1 23:04 Follow up: Response: No adverse reaction tl2 Disposition: 07/28/18 20:57 Transfer ordered to [facility]. Diagnosis are Pleural effusion in conditions classified elsewhere - large right, End stage renal disease - on hd, Dyspnea, Unspecified combined systolic (congestive) and diastolic (congestive) heart failure, Coagulation defect, unspecified - coumadin therapy, Contusion of right front wall of thorax, Hypokalemia, Human immunodeficiency virus [HIV] disease. - Reason for transfer: Higher level of care. - Accepting physician is to [facility]. - Condition is Fair. - Problem is new. - Symptoms have improved. Signatures: Dispatcher [employer] EDMS Boston Johnson MD MD cha Lasagna, Tonya, RN RN tl1 Vanna Gold RN RN tl2 Corrections: (The following items were deleted from the chart) 21:05 20:57 07/28/2018 20:57 Transfer ordered to [facility]. Diagnosis is beny Pleural effusion in conditions classified elsewhere - large right; End stage renal disease - on hd; Dyspnea; Unspecified combined systolic (congestive) and diastolic (congestive) heart failure; Coagulation defect, unspecified - coumadin therapy; Contusion of right front wall of thorax. Reason for transfer: Higher level of care. Accepting physician is to [facility]. Condition is Fair. Problem is new. Symptoms have improved. beny 21:13 21:05 07/28/2018 20:57 Transfer ordered to [facility]. Diagnosis is beny Pleural effusion in conditions classified elsewhere - large right; End stage renal disease - on hd; Dyspnea; Unspecified combined systolic (congestive) and diastolic (congestive) heart failure; Coagulation defect, unspecified - coumadin therapy; Contusion of right front wall of thorax; Hypokalemia. Reason for transfer: Higher level of care. Accepting physician is to [facility]. Condition is Fair. Problem is new. Symptoms have improved. beny 23:05 21:13 07/28/2018 20:57 Transfer ordered to [facility]. Diagnosis is tl2 Pleural effusion in conditions classified elsewhere - large right; End stage renal disease - on hd; Dyspnea; Unspecified combined systolic (congestive) and diastolic (congestive) heart failure; Coagulation defect, unspecified - coumadin therapy; Contusion of right front wall of thorax; Hypokalemia; Human immunodeficiency virus [HIV] disease. Reason for transfer: Higher level of care. Accepting physician is to [facility]. Condition is Fair. Problem is new. Symptoms have improved. beny
--- NOTE | 2018-07-28 20:58 | ER ---
Nurse's Notes [facility] Name: Salvatore Goldman Age: 63 yrs Sex: Male : 1955 Arrival Date: 07/28/2018 Time: 19:03 Bed 5 Private MD: out of town, doctor Diagnosis: Pleural effusion in conditions classified elsewhere-large right;End stage renal disease-on hd;Dyspnea;Unspecified combined systolic (congestive) and diastolic (congestive) heart failure;Coagulation defect, unspecified-coumadin therapy;Contusion of right front wall of thorax;Hypokalemia;Human immunodeficiency virus [HIV] disease Presentation: 07/28 19:18 Presenting complaint: Patient states: Pt was working on his car on Saturday and fell tl2 and hit his chest against the car. Pt reports pain in chest wall, aggravated by cough. Pt reports having cough since his heart valve replacement in December. Pt has dialysis tomorrow. Transition of care: patient was not received from another setting of care. Onset of symptoms was July 26, 2018. Risk Assessment: Do you want to hurt yourself or someone else? Patient reports no desire to harm self or others. Initial Sepsis Screen: Does the patient meet any 2 criteria? No. Patient's initial sepsis screen is negative. Does the patient have a suspected source of infection? No. Patient's initial sepsis screen is negative. Care prior to arrival: None. 19:18 Method Of Arrival: Ambulatory tl2 19:18 Acuity: NARDA 3 tl2 Triage Assessment: 19:22 General: Appears in no apparent distress. uncomfortable, Behavior is calm, cooperative, tl2 appropriate for age. Pain: Complains of pain in chest Pain does not radiate. Pain currently is 8 out of 10 on a pain scale. Neuro: Level of Consciousness is awake, alert, obeys commands, Oriented to person, place, time, situation. Cardiovascular: Reports chest pain, Chest pain is described as mild, quality is sharp, is located in chest wall. Respiratory: Reports cough that is hacking, persistent pain with cough Airway is patent Respiratory effort is even, unlabored, Respiratory pattern is regular, symmetrical. Respiratory: Breath sounds are coarse bilaterally. GI: No signs and/or symptoms were reported involving the gastrointestinal system. : No signs and/or symptoms were reported regarding the genitourinary system. Derm: Skin is pink, warm \T\ dry. Historical: - Allergies: 19: codeine sulfate; tl2 - Home Meds: : Isentress 400 mg Oral tab 1 tab 2 times per day [Active]; aspirin 81 mg Oral chew 1 tab tl2 once daily [Active]; atorvastatin 20 mg Oral tab 1 tab once daily [Active]; docusate sodium 100 mg Oral tab 1 tab 2 times per day [Active]; Kaletra 200-50 mg Oral tab 2 tabs 2 times per day [Active]; lamivudine 10 mg/mL Oral soln 2.5 mL once daily [Active]; metoprolol tartrate 25 mg Oral tab 1 tab once daily [Active]; Vitamin D Oral 60984 unit WEEKLY [Active]; warfarin 5 mg Oral tab 1 tab once daily [Active]; - PMHx: 19: Cirrhosis; Diabetes - NIDDM; Dialysis; heart valve; Hepatitis; HIV; Hyperlipidemia; tl2 Karposi Sarcoma (left leg); kidney failure; - Immunization history:: Adult Immunizations up to date. - Social history:: Smoking status: Patient/guardian denies using tobacco. - Ebola Screening: : No symptoms or risks identified at this time. - Family history:: not pertinent. Screenin:25 Abuse screen: Denies threats or abuse. Nutritional screening: No deficits noted. tl2 Tuberculosis screening: No symptoms or risk factors identified. Fall Risk None identified. Assessment: 19:22 General: see triage assessment. tl2 21:00 Reassessment: Patient appears in no apparent distress at this time. Patient and/or tl2 family updated on plan of care and expected duration. Pain level reassessed. Patient is alert, oriented x 3, equal unlabored respirations, skin warm/dry/pink. 22:00 Reassessment: Patient appears in no apparent distress at this time. Patient and/or tl2 family updated on plan of care and expected duration. Pain level reassessed. Patient is alert, oriented x 3, equal unlabored respirations, skin warm/dry/pink. Patient states feeling better. 23:03 Reassessment: Patient appears in no apparent distress at this time. Pt stable and ready tl2 for transfer. Vital Signs: 19: BP 154 / 84; Pulse 94; Resp 20; Temp 98(O); Pulse Ox 99% on R/A; Weight 73.94 kg; tl2 Height 5 ft. 7 in. (170.18 cm); Pain 8/10; 20:22 BP 153 / 93; Pulse 83; Resp 19; Pulse Ox 99% on R/A; tl2 21:26 BP 161 / 97; Pulse 79; Resp 23; Pulse Ox 98% on R/A; Pain 5/10; tl2 19:22 Body Mass Index 25.53 (73.94 kg, 170.18 cm) tl2 ED Course: 19:03 Patient arrived in ED. sb2 19:04 out of town, doctor is Private Physician. sb2 19:13 Boston Johnson MD is Attending Physician. [facility] 19:20 Triage completed. tl2 19:22 Arm band placed on right wrist. tl2 19:25 Patient has correct armband on for positive identification. Bed in low position. Call tl2 light in reach. Side rails up X 1. 19:39 Inserted saline lock: 22 gauge in right forearm, using aseptic technique. Blood tl2 collected. placed by LAURYN Trinh. 19:[address] 19:57 XRAY Chest (1 view) In Process Unspecified. EDMS 20:04 CT Chest Wo Con In Process Unspecified. EDMS 21:32 Gayathri Murphy RN is Primary Nurse. tl1 23:03 No provider procedures requiring assistance completed. Patient transferred, IV remains tl2 in place. Administered Medications: 21:28 Drug: fentaNYL (PF) 25 mcg Route: IVP; Site: right forearm; tl2 22:00 Follow up: Response: No adverse reaction; Pain is decreased tl2 21:29 Drug: Zofran 4 mg Route: IVP; Site: right forearm; tl2 22:00 Follow up: Response: No adverse reaction; Nausea is decreased tl2 21:33 Drug: Lovenox 40 mg Route: Sub-Q; Site: abdomen; tl1 23:04 Follow up: Response: No adverse reaction tl2 Outcome: 20:57 ER care complete, transfer ordered by . [facility] 23:03 Transferred by ground EMS to [facility], Transfer form completed. tl2 23:03 Condition: stable 23:03 Discharge instructions given to patient, Instructed on the need for transfer. 23:05 Patient left the ED. tl2 Signatures: Dispatcher [employer] EDMS Boston Johnson MD MD beny Fair, Soo sj Lasagna, Gayathri, RN RN tl1 Vanna Gold RN RN tl2 Ninoska Lozano2
[2018-07-28] MEDS ORDERED: ONDANSETRON 4 MG/2 ML VIAL ONE (21:28)
[2018-07-28] MEDS ORDERED: FENTANYL CITR 100 MCG/2 ML ONE (21:28)
[2018-07-28] MEDS ORDERED: ENOXAPARIN 40 MG/0.4 ML SQ ONE (21:28)
[2018-07-29 04:10] VITALS: TEMP 98
[2018-07-29 04:11] VITALS: BP 161/97; O2SAT 98
--- NOTE | 2018-07-29 12:11 | EKG ---
Test Date: 2018-07-28 Test Time: 19:30:31 Legal Activity Adjudicator: MARCELINA MEASUREMENT RESULTS: Intervals: Rate: 89 MO: 198 QRSD: 82 QT: 400 QTc: 486 [place]: P: -10 MO: 198 QRS: 76 T: 84 INTERPRETIVE STATEMENTS: Normal sinus rhythm Prolonged QT Abnormal ECG Compared to ECG 05/16/2018 20:12:30 Prolonged QT interval now present Sinus tachycardia no longer present Ventricular premature complex(es) no longer present Electronically Signed On 07-29-18 12:09:14 [employer] by Rafael Bedolla
== END 2018-07-28 23:05 | disposition short-term general hospital (02) ==
LOC: ER 19:02
DX: S20.211A Contusion of right front wall of thorax, initial encounter (principal); I50.40 Unspecified combined systolic (congestive) and diastolic (congestive) heart failure; J91.8 Pleural effusion in other conditions classified elsewhere; E11.22 Type 2 diabetes mellitus with diabetic chronic kidney disease; N18.6 End stage renal disease; E87.6 Hypokalemia; D68.9 Coagulation defect, unspecified; B20 Human immunodeficiency virus [HIV] disease; C46.7 Kaposi's sarcoma of other sites; W18.30XA Fall on same level, unspecified, initial encounter; Y93.01 Activity, walking, marching and hiking; Y92.9 Unspecified place or not applicable; Z88.5 Allergy status to narcotic agent; Z99.2 Dependence on renal dialysis
CPT/HCPCS: 36415; 71045; 71250; 80048; 80076; 83735; 83880; 84484; 85025; 85610; 93005; 96372; 96374; 96375; 99285; J1650; J2405; J3010

== ENCOUNTER 2018-08-12 16:11 | Emergency (ER) | payer OTHER ==
--- OUTSIDE RECORDS SUMMARY | 2018-08-12 16:14 | XMS REPORT ---
:1955 Author Organization [facility] Address [address] [place] [address] Care Team Providers Name Role Phone UNKNOWN, [...] Facility Department ID 2017-11-18 2017-11-20 [id number] 13:43:00 13:54:00 MAYLIN 2017-11-07 2017-11-07 Emergency E [facility] [id number] 20:22:00 20:22:00 2017-10-06 2017-10-06 Emergency [facility] [id number] 14:25:00 14:25:00 NEEL Results Test Description Test Time Test Comments Text Results Atomic Results Result Comments CD4/CD8 Ratio Profile 2017-11-27 08:04:00 Test Item Value Reference Range Comments Absolute CD 4 [place] (test fsji=370463) 188 /uL 359-1519 % CD 4 Pos. Lymph. (test xffe=270494) 37.6 % 30.8-58.5 Abs. CD 8 Suppressor (test naey=357226) 183 /uL 109-897 % CD 8 Pos. Lymph. (test mvgh=550422) 36.6 % 12.0-35.5 CD4/CD8 Ratio (test fgml=553161) 1.03 0.92-3.72 WBC (test jbaw=036586) 5.0 x10E3/uL 3.4-10.8 RBC (test zdah=751172) 3.00 x10E6/uL 4.14-5.80 Hemoglobin (test cobm=194126) 9.6 g/dL 13.0-17.7 Hematocrit (test zlvo=418827) 27.6 % 37.5-51.0 MCV (test oyzx=066899) 92 fL 79-97 MCH (test ctin=055822) 32.0 pg 26.6-33.0 MCHC (test oyyr=622713) 34.8 g/dL 31.5-35.7 RDW (test kwyl=692113) 15.5 % 12.3-15.4 Platelets (test dngv=196303) 113 x10E3/uL 150-379 Neutrophils (test uzdy=269717) 84 % Not Estab. Lymphs (test vfoh=199824) 9 % Not Estab. Monocytes (test iagi=404404) 6 % Not Estab. Eos (test qxjf=279245) 1 % Not Estab. Basos (test unow=884212) 0 % Not Estab. Neutrophils (Absolute) (test dfiw=237925) 4.2 x10E3/uL 1.4-7.0 Lymphs (Absolute) (test iywk=460152) 0.5 x10E3/uL 0.7-3.1 Monocytes(Absolute) (test ogxa=851261) 0.3 x10E3/uL 0.1-0.9 Eos (Absolute) (test isos=081626) 0.0 x10E3/uL 0.0-0.4 Baso (Absolute) (test lvsz=146102) 0.0 x10E3/uL 0.0-0.2 Immature Granulocytes (test tcfa=406401) 0 % Not Estab. Immature Grans (Abs) (test bupe=312088) 0.0 x10E3/uL 0.0-0.1 Culture, Blood [id number] 08:42:00Specimen: BloodCollected: 11/19/2017 00 :21 Status: Final Last Updated: 11/24/2017 08:42 Culture Result (Final) ( Final) No Growth After 5 DaysCulture, Blood [id number] 08:42: 00Specimen: BloodCollected: 11/18/2017 20:30 Status: Final Last Updated: 08:42 Culture Result (Final) (Final) No Growth After 5 DaysPOC Glucose, [id number] 11:51:00 Test Item Value Reference Range Comments POC Glucose (test 148 mg/dL 70-115 Notify RN or MDIf you consider code=POCGLUC) your patient critically ill, the Madeline Accu-Chek InformII metershould not be used for Glucose determinations.Draw a venous Glucose and send to the Main Lab for Analysis. CK [id number] 07:42:00 Test Item Value Reference Range Comments CK (test code=CK) na U/L 39-308 CKMB (test code=CKMB) 4.0 ng/mL 0.0-4.9 CKMB% (test code=CKMBP) 0.0 % 0.0-3.4 Euv-[id number] 07:39:00 Test Item Value Reference Range Comments NT ProBnp (test code=PBNP) >54710 pg/mL 0-124 Troponin [id number] 07:18:00 Test Item Value Reference Range Comments Troponin T (test code=MADHAV) 0.103 ng/mL 0.000-0.090 Lactate [id number] 07:18:00 Test Item Value Reference Range Comments LDH (test code=LDH) 271 U/L 135-225 POC Glucose, [id number] 06:50:00 Test Item Value Reference Range Comments POC Glucose (test 154 mg/dL 70-115 Notify RN or MDIf you consider code=POCGLUC) your patient critically ill, the Madeline Accu-Chek InformII metershould not be used for Glucose determinations.Draw a venous Glucose and send to the Main Lab for Analysis. CK [id number] 01:08:00 Test Item Value Reference Range Comments CK (test code=CK) na U/L 39-308 CKMB (test code=CKMB) 3.6 ng/mL 0.0-4.9 CKMB% (test code=CKMBP) 0.0 % 0.0-3.4 Troponin [id number] 01:08:00 Test Item Value Reference Range Comments Troponin T (test code=MADHAV) 0.106 ng/mL 0.000-0.090 XR CHEST 1 [id number] 21:02:01CLINICAL INFORMATION: Vascular congestion.Dictation Location: R 16Comparison: 11/18/2017 showed perihilar and lower lobe opacities. Technique: Portable AP 1951 hoursFINDINGS: Monitoring electrodes overlie the chest wall. Cardiomegaly withincreasing central vascular interstitial prominence with bibasilaropacities and effusions. No interval bone changes.IMPRESSION: Changes could indicate worsening cardiac decompensation orfluid overload.POC Glucose, [id number] 20:15:00 Test Item Value Reference Range Comments POC Glucose (test 139 mg/dL 70-115 If you consider your patient code=POCGLUC) critically ill, the Madeline Accu-Chek InformII metershould not be used for Glucose determinations.Draw a venous Glucose and send to the Main Lab for Analysis. POC Glucose, [id number] 16:52:00 Test Item Value Reference Range Comments POC Glucose (test 123 mg/dL 70-115 If you consider your patient code=POCGLUC) critically ill, the Madeline Accu-Chek InformII metershould not be used for Glucose determinations.Draw a venous Glucose and send to the Main Lab for Analysis. POC Glucose, [id number] 12:04:00 Test Item Value Reference Range Comments POC Glucose (test 140 mg/dL 70-115 If you consider your patient code=POCGLUC) critically ill, the Madeline Accu-Chek InformII metershould not be used for Glucose determinations.Draw a venous Glucose and send to the Main Lab for Analysis. POC Glucose, [id number] 08:01:00 Test Item Value Reference Range Comments POC Glucose (test 126 mg/dL 70-115 If you consider your patient code=POCGLUC) critically ill, the Madeline Accu-Chek InformII metershould not be used for Glucose determinations.Draw a venous Glucose and send to the Main Lab for Analysis. CK [id number] 06:03:00 Test Item Value Reference Range Comments CK (test code=CK) na U/L 39-308 CKMB (test code=CKMB) 2.8 ng/mL 0.0-4.9 CKMB% (test code=CKMBP) 0.0 % 0.0-3.4 Basic Metabolic [id number] 05:51:00 Test Item Value Reference Range Comments [...] race is not provided, and the patient isAfrican-Prydeinig, multiply by 1.212. If sex is not provided, and thepatient is female, multiply by 0.742. Results for patients <18 years ofage have not been validated by the MDRD study and should be interpretedwith caution.eGFR Result Interpretation:eGFR > or=60 is in the Normal RangeeGFR < 60 may mean kidney diseaseeGFR < 15 may mean kidney failureRanges recommended by the National Kidney Foundation,http://nkdep.nih .gov Magnesium, [id number] 05:51:00 Test Item Value Reference Range Comments Magnesium (test code=MG) 1.9 mg/dL 1.7-2.5 [id number] 05:51:00 Test Item Value Reference Range Comments Phosphorus (test code=PO4) 3.8 mg/dL 2.70-4.50 Dom-[id number] 05:51:00 Test Item Value Reference Range Comments NT ProBnp (test code=PBNP) >92880 pg/mL 0-124 Troponin [id number] 05:51:00 Test Item Value Reference Range Comments Troponin T (test code=MADHAV) 0.126 ng/mL 0.000-0.090 CBC with Qijcgbsaqgpt4880-97-47 05:34:00 Test Item Value Reference Range Comments [...] Lymph Abs (test code=ALYMPH) 0.4 K/cumm 0.5-4.6 Rock Abs (test code=AMONO) 0.6 K/cumm 0.0-1.2 Eos Abs (test code=AEOS) 0.13 K/cumm 0.00-0.74 Baso Abs (test code=ABASO) 0.0 K/cumm 0.00-0.21 CK [id number] 18:39:00 Test Item Value Reference Range Comments CK (test code=CK) HIDE U/L 39-308 CKMB (test code=CKMB) 3.2 ng/mL 0.0-4.9 CKMB% (test code=CKMBP) HIDE % 0.0-3.4 Troponin [id number] 18:39:00 Test Item Value Reference Range Comments Troponin T (test code=MADHAV) 0.126 ng/mL 0.000-0.090 Hep B Surface [id number] 18:39:00 Test Item Value Reference Range Comments Hep Bs Ag (test code=HBSAG) Nonreactive Non-Reactive POC Glucose, [id number] 16:47:00 Test Item Value Reference Range Comments POC Glucose (test 143 mg/dL 70-115 If you consider your patient code=POCGLUC) critically ill, the Madeline Accu-Chek InformII metershould not be used for Glucose determinations.Draw a venous Glucose and send to the Main Lab for Analysis. XR CHEST 1 [id number] 08:18:18EXAM: Portable AP chest x-rayLOCATION: R16 INDICATION: CoughCOMPARISON: 11/07/2017FINDINGS:The cardiacsilhouette is stable enlargement. There are increasinginterstitial opacities, most evident in the perihilar regions and lowerlobes. There is blunting of the costophrenic angles bilaterally. Thereis no discernible pneumothorax.IMPRESSION:Increasing perihilar and bilateral lower lobe opacities compared to theprior exam dated 11/07. Findings may represent pulmonary edema orpneumonia in the appropriate clinical setting.Comprehensive Metabolic [id number] 08:05:00 Test Item Value Reference Range Comments [...] race is not provided, and the patient isAfrican-Prydeinig, multiply by 1.212. If sex is not provided, and thepatient is female, multiply by 0.742. Results for patients <18 years ofage have not been validated by the MDRD study and should be interpretedwith caution.eGFR Result Interpretation:eGFR > or=60 is in the Normal RangeeGFR < 60 may mean kidney diseaseeGFR < 15 may mean kidney failureRanges recommended by the National Kidney Foundation,http://nkdep.nih .gov CK [id number] 08:05:00 Test Item Value Reference Range Comments CK (test code=CK) 149 U/L 39-308 Troponin [id number] 08:02:00 Test Item Value Reference Range Comments Troponin T (test code=MADHAV) 0.114 ng/mL 0.000-0.090 Gst-[id number] 08:02:00 Test Item Value Reference Range Comments NT ProBnp (test code=PBNP) >53950 pg/mL 0-124 CBC with Iweelpitqswl5156-31-45 07:53:00 Test Item Value Reference Range Comments [...] Lymph Abs (test code=ALYMPH) 0.9 K/cumm 0.5-4.6 Rock Abs (test code=AMONO) 0.4 K/cumm 0.0-1.2 Eos Abs (test code=AEOS) 0.11 K/cumm 0.00-0.74 Baso Abs (test code=ABASO) 0.0 K/cumm 0.00-0.21 XR CHEST 1 [id number] 21:38:09EXAM: CHEST ONE VIEWINDICATION: CoughCOMPARISON: October 06, 2017TECHNIQUE: AP view of the chest.FINDINGS: The cardiomediastinal silhouette is unchanged. Mild congestive changesbilaterally. No pneumothorax or pleural effusion is identified. Theosseous structures are unremarkable.IMPRESSION: Diffuse congestive changes bilaterally.LOCATION: R16US DUPLX EXT VEINS COMPR, [id number] 20:09:34AFTER HOURS SERVICE ON: 10/06/2017 8: 09 PMRIGHT Lower Extremity Venous Duplex Doppler ExaminationLocation Code J32Iiehnty: SwellingTechnique: Real-time castillo scale, Doppler spectral analysis [...] imaged vessels.AFTER HOURS SERVICE ON: 10/06/2017 8:09 [facility] Lower Extremity Venous Duplex Doppler ExaminationLocation Code D88Drozmwg : SwellingTechnique: Real-time castillo scale, Doppler spectral [...] of DVT in the imaged vessels.Comprehensive Metabolic [id number] 17 :40:00 Test Item Value Reference Range [...] race is not provided, and the patient isAfrican-Prydeinig, multiply by 1.212. If sex is not [...] the National Kidney Foundation,http://nkdep.nih .gov CBC with [id number] 17:15:00 Test Item Value Reference Range Comments [...] Lymph Abs (test code=ALYMPH) 1.3 K/cumm 0.5-4.6 Rock Abs (test code=AMONO) 0.6 K/cumm 0.0-1.2 Eos Abs (test code=AEOS) 0.12 K/cumm 0.00-0.74 Baso Abs (test code=ABASO) 0.0 K/cumm 0.00-0.21 XR CHEST 1 [id number] 16:56:42CHEST 1 VIEW: [id number]: coughCOMPARISON: Sep 24, 2017FINDINGS:The heart is enlarged. There is engorgement of the central pulmonaryvasculature. There are patchy bibasilar areas of infiltrate oratelectasis with bilateral effusions. No pneumothorax is present. IMPRESSION: 1. Patchy areas of atelectasis or infiltrate in the lung bases withsmall bilateral effusions and vascular congestion most likely secondaryto CHF.Culture, Blood [id number] 14:58:00Specimen: BloodCollected: 2017 13:05 Status: Final Last Updated: 09/29/2017 14:58 (1) ER Bed 1 Culture Result (Final) (Final) No Growth After 5 DaysCulture, Blood [id number] 14:58:00Specimen: BloodCollected: 09/24/2017 12:50 Status: Final Last Updated: 09/29/2017 14:58 (1) ER Bed 1 Culture Result (Final) (Final) No Growth After 5 DaysPOC Glucose, [id number] 10:54:00 Test Item Value Reference Range Comments POC Glucose (test 168 mg/dL 70-115 If you consider your patient code=POCGLUC) critically ill, the [facility]eline Accu-Chek InformII metershould not be used for Glucose determinations.Draw a venous Glucose and send to the Main Lab for Analysis. POC Glucose, Njwzi7040-29-08 07:16:00 Test Item Value Reference Range Comments POC Glucose (test 143 mg/dL 70-115 If you consider your patient code=POCGLUC) critically ill, the Madeline Accu-Chek InformII metershould not be used for Glucose determinations.Draw a venous Glucose and send to the Main Lab for Analysis. CBC with [id number] 07:15:00 Test Item Value Reference Range Comments [...] Lymph Abs (test code=ALYMPH) 1.3 K/cumm 0.5-4.6 Rock Abs (test code=AMONO) 0.7 K/cumm 0.0-1.2 Eos Abs (test code=AEOS) 0.07 K/cumm 0.00-0.74 Baso Abs (test code=ABASO) 0.0 K/cumm 0.00-0.21 Magnesium, [id number] 07:03:00 Test Item Value Reference Range Comments Magnesium (test code=MG) 2.0 mg/dL 1.7-2.5 Basic Metabolic [id number] 07:03:00 Test Item Value Reference Range Comments [...] race is not provided, and the patient isAfrican-Prydeinig, multiply by 1.212. If sex is not [...] the National Kidney Foundation,http://nkdep.nih .gov POC Glucose, [id number] 21:40:00 Test Item Value Reference Range Comments POC Glucose (test 129 mg/dL 70-115 If you consider your patient code=POCGLUC) critically ill, the Madeline Accu-Chek InformII metershould not be used for Glucose determinations.Draw a venous Glucose and send to the Main Lab for Analysis. Hep B Surface [id number] 18:36:00 Test Item Value Reference Range Comments Hep Bs Ag (test code=HBSAG) Nonreactive Non-Reactive POC Glucose, [id number] 10:51:00 Test Item Value Reference Range Comments POC Glucose (test 216 mg/dL 70-115 If you consider your patient code=POCGLUC) critically ill, the Madeline Accu-Chek InformII metershould not be used for Glucose determinations.Draw a venous Glucose and send to the Main Lab for Analysis. POC Glucose, [id number] 07:57:00 Test Item Value Reference Range Comments POC Glucose (test 164 mg/dL 70-115 If you consider your patient code=POCGLUC) critically ill, the Madeline Accu-Chek InformII metershould not be used for Glucose determinations.Draw a venous Glucose and send to the Main Lab for Analysis. POC Glucose, [id number] 19:47:00 Test Item Value Reference Range Comments POC Glucose (test 140 mg/dL 70-115 Notify RN or MDIf you consider code=POCGLUC) your patient critically ill, the Madeline Accu-Chek InformII metershould not be used for Glucose determinations.Draw a venous Glucose and send to the Main Lab for Analysis. Troponin [id number] 19:36:00 Test Item Value Reference Range Comments Troponin T (test code=MADHAV) 0.121 ng/mL 0.000-0.090 CK [id number] 19:25:00 Test Item Value Reference Range Comments CK (test code=CK) 160 U/L 39-308 The value HIDE originally released by [employer] on 09/25/2017 19:12 waschanged to 160 by [employer] on 09/25/2017 19:24 CKMB (test code=CKMB) 3.0 ng/mL 0.0-4.9 CKMB% (test code=CKMBP) 1.9 % 0.0-3.4 The value HIDE originally released by [employer] on 09/25/2017 19:12 waschanged to 1.9 by [employer] on 09/25/2017 19:24 POC Glucose, [id number] 16:42:00 Test Item Value Reference Range Comments POC Glucose (test 123 mg/dL 70-115 If you consider your patient code=POCGLUC) critically ill, the Madeline Accu-Chek InformII metershould not be used for Glucose determinations.Draw a venous Glucose and send to the Main Lab for Analysis. POC Glucose, [id number] 12:09:00 Test Item Value Reference Range Comments POC Glucose (test 141 mg/dL 70-115 If you consider your patient code=POCGLUC) critically ill, the Madeline Accu-Chek InformII metershould not be used for Glucose determinations.Draw a venous Glucose and send to the Main Lab for Analysis. Hep B Surface [id number] 07:59:00 Test Item Value Reference Range Comments Hep Bs Ag (test code=HBSAG) Nonreactive Non-Reactive CK [id number] 07:43:00 Test Item Value Reference Range Comments CK (test code=CK) n/a U/L 39-308 CKMB (test code=CKMB) 2.4 ng/mL 0.0-4.9 CKMB% (test code=CKMBP) 0.0 % 0.0-3.4 Troponin [id number] 07:38:00 Test Item Value Reference Range Comments Troponin T (test code=MADHAV) 0.134 ng/mL 0.000-0.090 Thyroid Stimulating Hormone (TSH)2017-09-25 07:38:00 Test Item Value Reference Range Comments TSH (test code=TSH) 1.10 mIU/mL 0.270-4.200 Argpgsskrq5040-16-02 07:38:00 Test Item Value Reference Range Comments Phosphorus (test code=PO4) 3.4 mg/dL 2.70-4.50 Comprehensive Metabolic [id number] 07:38:00 Test Item Value Reference Range Comments [...] race is not provided, and the patient isAfrican-Prydeinig, multiply by 1.212. If sex is not provided, and thepatient is female, multiply by 0.742. Results for patients <18 years ofage have not been validated by the MDRD study and should be interpretedwith caution.eGFR Result Interpretation:eGFR > or=60 is in the Normal RangeeGFR < 60 may mean kidney diseaseeGFR < 15 may mean kidney failureRanges recommended by the National Kidney Foundation,http://nkdep.nih .gov Magnesium, [id number] 07:38:00 Test Item Value Reference Range Comments Magnesium (test code=MG) 2.0 mg/dL 1.7-2.5 CK [id number] 07:31:00 Test Item Value Reference Range Comments CK (test code=CK) 159 U/L 39-308 Lipid [id number] 07:31:00 Test Item Value Reference Range Comments Cholesterol (test 118 mg/dL 0-200 code=CHOL) Triglycerides (test 170 mg/dL 9-200 code=TRIG) HDL (test code=HDL) 49 mg/dL 40-60 Chol/HDL (test 2.4 Ratio 0.0-5.0 code=CHOLPHDL) LDL, Calculated (test 35 0-130 (NOTE)RISK OF HEART code=LDLC) DISEASEPublished by Prydeinig Heart AssociationAnalyte Optimal Boderline Increased RiskCHOL <200 200-239 >240TRIG <150 150-199 >200HDL Male: >60 <40HDL Female: >60 <50LDL <100 130-159 >160LDL NEAR OPTIMAL IS 100-129 VLDL (test code=VLDL) 34 mg/dL 5-40 LDL/HDL (test code=LDLPHDL) 1 Glycosylated Tsyrdvdzbc5939-07-49 07:24:00 Test Item Value Reference Range Comments HBA1c (test code=HBA1C) 5.0 % 4.8-5.9 CBC with [id number] 07:20:00 Test Item Value Reference Range Comments [...] Lymph Abs (test code=ALYMPH) 0.8 K/cumm 0.5-4.6 Rock Abs (test code=AMONO) 0.5 K/cumm 0.0-1.2 Eos Abs (test code=AEOS) 0.10 K/cumm 0.00-0.74 Baso Abs (test code=ABASO) 0.0 K/cumm 0.00-0.21 POC Glucose, [id number] 07:03:00 Test Item Value Reference Range Comments POC Glucose (test 147 mg/dL 70-115 If you consider your patient code=POCGLUC) critically ill, the Madeline Accu-Chek InformII metershould not be used for Glucose determinations.Draw a venous Glucose and send to the Main Lab for Analysis. POC Glucose, [id number] 22:05:00 Test Item Value Reference Range Comments POC Glucose (test 134 mg/dL 70-115 If you consider your patient code=POCGLUC) critically ill, the Madeline Accu-Chek InformII metershould not be used for Glucose determinations.Draw a venous Glucose and send to the Main Lab for Analysis. Blood Gas+Lytes+Glu+Ca+Hgb+Hct+[id number] 18:31:00 Test Item Value Reference Range Comments [...] Celcius code=PTTEMP) Comment (test code=COMMENT) [email or web address] Puncture Site (test code=PUNSITE) Radial. R Drawing Tech ID (test medel fi code=DRAWTECH) iPAP (test code=IPAP) 0 cmH2O Respiratory Rate (test code=RESP 0 RATE) Lactic Acid, Blood Gas (test 0.4 mmol/L code=BGLA) CT CHEST W/O [id number] 16:48:03CT CHEST W/O CONTRASTLOCATION CODE: R16 HISTORY: [...] bilateral axillary, prevascular, andparatracheal lymph nodes.Influenza B [id number] 14:36:00Specimen: NasalCollected: 09/24/2017 14:04 Status: Final Last [...] Culture of negative samples is recommended.Influenza A [id number] 14:34:00Specimen: NasalCollected: 09/24/2017 14:04 Status: Final Last [...] Culture of negative samples is recommended.Comprehensive Metabolic [id number] 13:54:00 Test Item Value Reference Range Comments [...] race is not provided, and the patient isAfrican-Prydeinig, multiply by 1.212. If sex is not provided, and thepatient is female, multiply by 0.742. Results for patients <18 years ofage have not been validated by the MDRD study and should be interpretedwith caution.eGFR Result Interpretation:eGFR > or=60 is in the Normal RangeeGFR < 60 may mean kidney diseaseeGFR < 15 may mean kidney failureRanges recommended by the National Kidney Foundation,http://nkdep.nih .gov Troponin [id number] 13:54:00 Test Item Value Reference Range Comments Troponin T (test code=MADHAV) 0.124 ng/mL 0.000-0.090 Cby-[id number] 13:54:00 Test Item Value Reference Range Comments NT ProBnp (test code=PBNP) >16536 pg/mL 0-124 CK [id number] 13:54:00 Test Item Value Reference Range Comments CK (test code=CK) 222 U/L 39-308 CKMB (test code=CKMB) 3.1 ng/mL 0.0-4.9 CKMB% (test code=CKMBP) 1.4 % 0.0-3.4 CK [id number] 13:54:00 Test Item Value Reference Range Comments CK (test code=CK) 222 U/L 39-308 Partial Thromboplastin [id number] 13:43:00 Test Item Value Reference Range Comments aPTT (test code=PTT) 35.70 seconds 24.39-37.25 Prothrombin [id number] 13:43:00 Test Item Value Reference Range Comments PT (test code=PT) 11.30 seconds 9.78-13.35 INR (test code=INR) 0.99 Ratio 0.6-1.2 Lactic Acid [id number] 13:41:00 Test Item Value Reference Range Comments Lactic Acid, Bld (test code=LAC) 1.3 mmol/L 0.5-1.9 CBC with [id number] 13:32:00 Test Item Value Reference Range Comments [...] Lymph Abs (test code=ALYMPH) 1.2 K/cumm 0.5-4.6 Rock Abs (test code=AMONO) 0.6 K/cumm 0.0-1.2 Eos Abs (test code=AEOS) 0.23 K/cumm 0.00-0.74 Baso Abs (test code=ABASO) 0.0 K/cumm 0.00-0.21 XR CHEST 1 [id number] 12:50:14XR CHEST 1 VIEWLOCATION: [id number]: None.INDICATION: CoughDISCUSSION:A single portable chest radiograph was [...]
--- OUTSIDE RECORDS SUMMARY | 2018-08-12 16:15 | XMS REPORT ---
[...] Patient Date Date Name Instruction AMLODIPINE AMLODIPINE [id number] Active Mo Active BESYLATE 10 MG BESYLATE Dicks OD ORAL TABLET CALCIUM ACETATE CALCIUM ACETATE 50075111328 Active Mo Active (PHOS BINDER) (PHOS BINDER) Dicks OD 667 MG ORAL CAPSULE CRESTOR 5 MG ROSUVASTATIN 54652605529 Active Mo Active ORAL TABLET CALCIUM Dicks OD EPIVIR SOLUTION LAMIVUDINE SOLN 64623455740 Active Mo Active Dicks OD ISENTRESS RALTEGRAVIR 06483484179 Active Mo Active TABLET POTASSIUM TABS Dicks OD KALETRA TABLET LOPINAVIR-RITONAVI 60291189901 Active Mo Active R TABS Dicks OD LAMIVUDINE LAMIVUDINE TABS 90339612164 Active Mo Active TABLET Dicks OD PROAIR HFA ALBUTEROL SULFATE 96115863780 Active Mo Active AEROSOL AERS Dicks OD SOLUTION PEDRO-EAMON RX B-COMPLEX W/ C & 97902060132 Active Mo Active TABLET FOLIC ACID TABS Dicks OD VITAMIN D2 ERGOCALCIFEROL 37692306625 Active Mo Active TABLET TABS Dicks OD Diagnostic Results Date Name Value Unit Range Description Append: Eye Exam - Hematology T-helper cells (CD4) count 602 uL Append: Eye Exam - Serology HIV-1RNA, serum, by PCR, quantitative 20 {Copies}/mL Procedures Code Procedure Name Date Entry Date Standard Description CPT-43746 Dispensing Visit (UNLIVSTED OPHTHALMOLOGICAL 10:14:39 CDT SERVICE/PROCEDURE) CPT-39438 Est Patient Comprehensive Opt - 80914 15:29:32 CDT CPT-73554 New Patient Intermediate Opt - 33134 14:28:41 CDT
--- NOTE | 2018-08-12 17:16 | RAD REPORT ---
EXAM DESCRIPTION: CT - Thorax Wo Con - 08/12/2018 5:05 pm CLINICAL HISTORY: sob COMPARISON: July 28, 2018 TECHNIQUE: Computed axial tomography of the chest was obtained. Contrast was not requested. All CT scans are performed using dose optimization technique as appropriate and may include automated exposure control or mA/KV adjustment according to patient size. FINDINGS: The evaluation of mediastinum, irma and vessels is limited secondary to lack of IV contras t administration. Moderate to large right and small left pleural effusions with right lower lobe atelectasis. Left lung is clear Mild axillary and mediastinal lymphadenopathy. IMPRESSION: Moderate to large right pleural effusion
[2018-08-12 17:40] LABS: Absolute Lymphocytes (CBC) 0.8 K/uL (0.7-4.9); Absolute Neutrophil 4.8 K/uL (1.8-8.0); Basophils % 0.6 % (0-1.3); Eosinophils % 0.5 % (0-4.4); Hematocrit 35.3 % (39.6-49.0); Lymphocytes % 12.6 % (15.3-44.8); MCH 33.4 pg (27.0-35.0); MPV 6.8 fL (7.6-11.3); Monocytes % 15.1 % (3.3-12.3); RBC Red Blood Cell Count 3.61 M/uL (4.33-5.43)
[2018-08-12 17:45] LABS: Protime INR 2.49
--- NOTE | 2018-08-12 17:45 | EKG ---
Test Date: 2018-08-12 Test Time: 16:55:30 Rehabilitation Inspector: ROSALBA MEASUREMENT RESULTS: Intervals: Rate: 92 DC: 186 QRSD: 82 QT: 400 QTc: 494 Hines: P: 62 DC: 186 QRS: 82 T: 92 INTERPRETIVE STATEMENTS: Normal sinus rhythm Minimal voltage criteria for LVH, may be normal variant Prolonged QT Abnormal ECG Compared to ECG 07/28/2018 19:30:31 Left ventricular hypertrophy now present Electronically Signed On 08-12-18 17:44:07 WINDOWS [employer] ADMINISTRATOR by Brandt Dawn
[2018-08-12 17:54] LABS: Potassium 3.5 mmol/L (3.5-5.1)
[2018-08-12 18:07] LABS: Platelet Estimate ADEQ
[2018-08-12 18:09] LABS: Anisocytosis 1+; Blood Morphology Comment NOT SEEN (NOT SEEN); Hypochromasia 1+
--- NOTE | 2018-08-12 18:28 | ER ---
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 Transition of care: patient was not received from another setting of care. Onset of symptoms was August 12, 2018. Risk Assessment: Do you want to hurt yourself or someone else? Patient reports no desire to harm self or others. Initial Sepsis Screen: Does the patient meet any 2 criteria? No. Patient's initial sepsis screen is negative. Does the patient have a suspected source of infection? No. Patient's initial sepsis screen is negative. Care prior to arrival: None. 16:41 Method Of Arrival: Wheelchair 16:41 Acuity: NARDA 3 ph Triage Assessment: 19:48 General: Appears in no apparent distress. Respiratory: the patient has mild shortness mg2 of breath. Respiratory: Reports shortness of breath cough that is. Historical: - Allergies: 16:43 codeine sulfate; ph - Home Meds: 19:52 aspirin 81 mg Oral chew 1 tab once daily [Active]; atorvastatin 20 mg Oral tab 1 tab mg2 once daily [Active]; docusate sodium 100 mg Oral tab 1 tab 2 times per day [Active]; Isentress 400 mg Oral tab 1 tab 2 times per day [Active]; Kaletra 200-50 mg Oral tab 2 tabs 2 times per day [Active]; lamivudine 10 mg/mL Oral soln 2.5 mL once daily [Active]; metoprolol tartrate 25 mg Oral tab 1 tab once daily [Active]; 19:53 Vitamin [place] 49875 unit WEEKLY [Active]; warfarin 5 mg Oral tab 1 tab once daily mg2 [Active]; - PMHx: 16:43 Cirrhosis; Diabetes - NIDDM; Dialysis; heart valve; Hepatitis; HIV; Hyperlipidemia; ph Karposi Sarcoma (left leg); kidney failure; - Immunization history:: Flu vaccine status is unknown. - Social history:: Smoking status: unknown. - Ebola Screening: : No symptoms or risks identified at this time. Screenin:45 Abuse screen: Denies threats or abuse. Denies injuries from another. Nutritional mg2 screening: No deficits noted. Tuberculosis screening: No symptoms or risk factors identified. Fall Risk None identified. Assessment: 16:43 General: Appears in no apparent distress. comfortable, Behavior is calm, cooperative. mg2 Pain: Complains of pain in chest Pain does not radiate. Pain currently is 2 out of 10 on a pain scale. Quality of pain is described as when coughing Pain began gradually, 1 day ago. Is intermittent. Neuro: Level of Consciousness is awake, alert, obeys commands, Oriented to person, place, time, situation. Cardiovascular: Capillary refill < 3 seconds Patient's skin is warm and dry. Cardiovascular:. Respiratory: Airway is patent Respiratory effort is even, unlabored, Respiratory pattern is regular, symmetrical, Breath sounds are clear. GI: No signs and/or symptoms were reported involving the gastrointestinal system. : No signs and/or symptoms were reported regarding the genitourinary system. : No signs and/or symptoms were reported regarding the genitourinary system. EENT: Derm: Skin is intact, is healthy with good turgor, Skin is pink, warm \\T\\ dry. normal. Musculoskeletal: 17:00 Cardiovascular: Rhythm is regular. mg2 17:03 Reassessment: Patient appears in no apparent distress at this time. Patient and/or mg2 family updated on plan of care and expected duration. Pain level reassessed. Patient is alert, oriented x 3, equal unlabored respirations, skin warm/dry/pink. patient sent to ct scan. 17:25 Reassessment: Dr. Oscar Alberto MD, [facility] is his science consultant from [facility]. mg2 19:47 Reassessment: Patient appears in no apparent distress at this time. Patient and/or mg2 family updated on plan of care and expected duration. Pain level reassessed. Patient is alert, oriented x 3, equal unlabored respirations, skin warm/dry/pink. report given to LAURYN Jorgensen of [facility]. Vital Signs: 16:44 BP 123 / 110; Pulse 99; Resp 24; Temp 98.6(TE); Pulse Ox 98% on R/A; Weight 74.39 kg; ph Height 5 ft. 7 in. (170.18 cm); 17:54 BP 149 / 78; Pulse 88; Resp 18; Pulse Ox 99% ; Pain 0/10; mg2 19:03 BP 151 / 78; Pulse 90; Resp 18; Pulse Ox 100% on R/A; Pain 0/10; mg2 16:44 Body Mass Index 25.69 (74.39 kg, 170.18 cm) ph ED Course: 16:13 Patient arrived in ED. mr 16:14 out of town, doctor is Private Physician. mr 16:37 Katlyn Bojorquez [facility]C [facility]. snw 16:37 Manuel Montgomery MD is Attending Physician. snw 16:40 Young Toscano RN is Primary Nurse. mg2 16:43 Triage completed. ph 16:44 Arm band placed on Patient placed in an exam room, on a stretcher, on oxygen, on pulse ph oximetry. 16:45 No provider procedures requiring assistance completed. mg2 16:46 Patient has correct armband on for positive identification. Pulse ox on. NIBP on. mg2 16:59 EKG done, by testing tech. reviewed by Katlyn BAJWA. sm3 17:03 CT completed. Patient tolerated procedure well. Patient moved to [place]. Patient moved back il from CT. 17:08 CT Chest Wo Con In Process Unspecified. EDMS 17:26 Inserted saline lock: 20 gauge in right wrist, using aseptic technique. Blood collected.mg2 18:07 initiated a transfer with Halina Perkins RN from the [facility] transfer center. eb 18:22 connected the hospitalist rehab director occupational therapist for [facility] with Katlyn FREIRE for patient eb transfer consultation. 18:48 administrative approval given by Halina Perkins RN transfer controller/ Alison Hines has accepted the patient in transfer/ report to be called at [phone]/ patient going to [facility]. 20:23 Patient transferred, IV remains in place. mg2 Administered Medications: No medications were administered Outcome: 18:28 ER care complete, transfer ordered by MD. jose 20:23 Transferred by ground EMS to [facility], Transfer form completed. mg2 20:23 Condition: stable 20:23 Instructed on the need for transfer, Demonstrated understanding of instructions. 20:24 Patient left the ED. mg2 Signatures: Dispatcher [employer] EDMS Katlyn Bojorquez, HEARING AID ASSISTANT-C HEARING AID ASSISTANT-Csnw Alban, Bonny Alex, Whitney, RN RN [facility], Amanda Church Michele, RN RN [facility] Jacquelin Crowell 3 Corrections: (The following items were deleted from the chart) 18:31 18:22 connected the hospitalist rehab director occupational therapist for [facility] with Katlyn FREIRE for patient eb transfer consultation. eb 18:50 18:49 administrative approval given by Halina Perkins RN transfer controller/ Alison Hines has accepted the patient in transfer/ report to be called at [phone]/ patient going to [facility] eb
--- NOTE | 2018-08-12 18:28 | EDPHYS ---
Physician Documentation [facility] Name: Salvatore Goldman Age: 63 yrs Sex: Male : 1955 Arrival Date: 08/12/2018 Time: 16:13 Bed External Waiting Private MD: out of town, doctor ED Physician Manuel Montgomery HPI: 08/12 17:06 This 63 yrs old Black Male presents to ER via Wheelchair with complaints of Breathing snw Difficulty, Cough. 17:06 The patient has shortness of breath at rest. Onset: The symptoms/episode began/occurred snw suddenly, 2 day(s) ago, and became worse and became persistent. Duration: The symptoms are continuous. Associated signs and symptoms: Pertinent positives: productive cough. Severity of symptoms: At their worst the symptoms were moderate. The patient has experienced a previous episode, last week. The patient has been recently seen by a physician: pt was transferred to [facility] on last visit. Legal Director told pt to come to this facility and be transferred to [facility] per report. Historical: - Allergies: 16:43 codeine sulfate; ph - Home Meds: 19:52 aspirin 81 mg Oral chew 1 tab once daily [Active]; atorvastatin 20 mg Oral tab 1 tab mg2 once daily [Active]; docusate sodium 100 mg Oral tab 1 tab 2 times per day [Active]; Isentress 400 mg Oral tab 1 tab 2 times per day [Active]; Kaletra 200-50 mg Oral tab 2 tabs 2 times per day [Active]; lamivudine 10 mg/mL Oral soln 2.5 mL once daily [Active]; metoprolol tartrate 25 mg Oral tab 1 tab once daily [Active]; 19:53 Vitamin D Oral 52445 unit WEEKLY [Active]; warfarin 5 mg Oral tab 1 tab once daily mg2 [Active]; - PMHx: 16:43 Cirrhosis; Diabetes - NIDDM; Dialysis; heart valve; Hepatitis; HIV; Hyperlipidemia; ph Karposi Sarcoma (left leg); kidney failure; - Immunization history:: Flu vaccine status is unknown. - Social history:: Smoking status: unknown. - Ebola Screening: : No symptoms or risks identified at this time. ROS: 17:05 Eyes: Negative for injury, pain, redness, and discharge, ENT: Negative for injury, snw pain, and discharge, Neck: Negative for injury, pain, and swelling, Cardiovascular: Negative for chest pain, palpitations, and edema. 17:05 Abdomen/GI: Negative for abdominal pain, nausea, vomiting, diarrhea, and constipation, Back: Negative for injury and pain, : Negative for injury, bleeding, discharge, and swelling, MS/Extremity: Negative for injury and deformity, Skin: Negative for injury, rash, and discoloration, Neuro: Negative for headache, weakness, numbness, tingling, and seizure, Psych: Negative for depression, anxiety, suicide ideation, homicidal ideation, and hallucinations. 17:05 Constitutional: Positive for gasping for air, cough. 17:05 Respiratory: Positive for cough, shortness of breath, at rest. Exam: 17:01 Head/Face: Normocephalic, atraumatic. Eyes: Pupils equal round and reactive to light, snw extra-ocular motions intact. Lids and lashes normal. Conjunctiva and sclera are non-icteric and not injected. Cornea within normal limits. Periorbital areas with no swelling, redness, or edema. ENT: Nares patent. No nasal discharge, no septal abnormalities noted. Tympanic membranes are normal and external auditory canals are clear. Oropharynx with no redness, swelling, or masses, exudates, or evidence of obstruction, uvula midline. Mucous membranes moist. Neck: Trachea midline, no thyromegaly or masses palpated, and no cervical lymphadenopathy. Supple, full range of motion without nuchal rigidity, or vertebral point tenderness. No Meningismus. Chest/axilla: Normal chest wall appearance and motion. Nontender with no deformity. No lesions are appreciated. Cardiovascular: Regular rate and rhythm with a normal S1 and S2. No gallops, murmurs, or rubs. Normal PMI, no JVD. No pulse deficits. 17:01 Abdomen/GI: Soft, non-tender, with normal bowel sounds. No distension or tympany. No guarding or rebound. No evidence of tenderness throughout. Back: No spinal tenderness. No costovertebral tenderness. Full range of motion. MS/ Extremity: Pulses equal, no cyanosis. Neurovascular intact. Full, normal range of motion. Neuro: Awake and alert, GCS 15, oriented to person, place, time, and situation. Cranial nerves II-XII grossly intact. Motor strength 5/5 in all extremities. Sensory grossly intact. Cerebellar exam normal. Normal gait. Psych: Awake, alert, with orientation to person, place and time. Behavior, mood, and affect are within normal limits. 17:01 Constitutional: The patient appears alert, awake, frail, restless, uncomfortable. 17:01 Respiratory: mild respiratory distress is noted, moderate respiratory distress is noted, Respirations: grunting, shallow respirations, tachypnea, Breath sounds: decreased breath sounds, that are moderate, cough, harsh cough with occasional mucus expectorated. 17:01 Skin: Appearance: normal except for affected area, left lower ext with mild edema (Kaposi's), JVD 3cm bilaterally. Vital Signs: 16:44 BP 123 / 110; Pulse 99; Resp 24; Temp 98.6(TE); Pulse Ox 98% on R/A; Weight 74.39 kg; ph Height 5 ft. 7 in. (170.18 cm); 17:54 BP 149 / 78; Pulse 88; Resp 18; Pulse Ox 99% ; Pain 0/10; mg2 19:03 BP 151 / 78; Pulse 90; Resp 18; Pulse Ox 100% on R/A; Pain 0/10; mg2 16:44 Body Mass Index 25.69 (74.39 kg, 170.18 cm) ph MDM: 16:37 Patient medically screened. snw 18:25 Data reviewed: vital signs, nurses notes. Data interpreted: Pulse oximetry: on room air snw is 99 %. Interpretation: normal. Counseling: I had a detailed discussion with the patient and/or guardian regarding: the historical points, exam findings, and any diagnostic results supporting the discharge/admit diagnosis, lab results, radiology results, the need to transfer to another facility, for higher level of care. Physician consultation: Dr. Oneill was called at 18:25, was contacted at 18:25, regarding regarding transfer, to [facility]. Dr. Oneill kindly accepts pt in transfer to [facility]. 08/12 16:56 Order name: CBC with Diff; Complete Time: 18:15 snw 08/12 16:56 Order name: Chem 7; Complete Time: 18:02 snw 08/12 16:56 Order name: Procalcitonin; Complete Time: 18:15 snw 08/12 16:56 Order name: PT-INR; Complete Time: 18:02 snw 08/12 16:56 Order name: Ptt, Activated; Complete Time: 18:02 snw 08/12 16:56 Order name: Blood Culture* snw 08/12 16:44 Order name: CT Chest Wo Con; Complete Time: 17:39 snw 08/12 16:56 Order name: EKG; Complete Time: 16:57 snw 08/12 16:56 Order name: EKG - Nurse/Tech; Complete Time: 17:03 snw 08/12 16:58 Order name: Misc. Order: Please document name of packaging machine operator/MD at [facility]; snw Complete Time: 17:25 08/12 17:43 Order name: Manual Differential; Complete Time: 18:15 EDMS Administered Medications: No medications were administered Disposition: 08/13 07:03 Co-signature as Attending Physician, Manuel Montgomery MD. rn Disposition: 08/12/18 18:28 Transfer ordered to [facility]. Diagnosis are Pleural effusion in other conditions classified elsewhere, Human immunodeficiency virus [HIV] disease - with Kaposi's, End stage renal disease - on HD. - Reason for transfer: Higher level of care. - Accepting physician is Dr. Oneill. - Condition is Stable. - Problem is an acute exacerbation. - Symptoms have worsened. Signatures: Dispatcher [employer] EDMS Katlyn Bojorquez, AUTO RADIATOR SPECIALIST-C AUTO RADIATOR SPECIALIST-Csnw Manuel Montgomery MD MD rn Hall, Patricia, RN RN Young Toscano RN RN [facility] Corrections: (The following items were deleted from the chart) 08/12 20:24 18:28 08/12/2018 18:28 Transfer ordered to [facility]. Diagnosis is mg2 Pleural effusion in other conditions classified elsewhere; Human immunodeficiency virus [HIV] disease - with Kaposi's; End stage renal disease - on HD. Reason for transfer: Higher level of care. Accepting physician is Dr. Oneill. Condition is Stable. Problem is an acute exacerbation. Symptoms have worsened. snw
[2018-08-12 20:29] VITALS: TEMP 98.6
[2018-08-12 20:37] VITALS: BP 151/78; O2SAT 100
== END 2018-08-12 20:24 | disposition short-term general hospital (02) ==
LOC: ER 16:11
DX: J91.8 Pleural effusion in other conditions classified elsewhere (principal); B20 Human immunodeficiency virus [HIV] disease; C46.9 Kaposi's sarcoma, unspecified; E11.22 Type 2 diabetes mellitus with diabetic chronic kidney disease; N18.6 End stage renal disease; Z99.2 Dependence on renal dialysis; E78.5 Hyperlipidemia, unspecified; Z79.01 Long term (current) use of anticoagulants; Z79.82 Long term (current) use of aspirin; Z95.2 Presence of prosthetic heart valve; Z88.5 Allergy status to narcotic agent
CPT/HCPCS: 36415; 71250; 80048; 84145; 85025; 85610; 85730; 87040; 93005; 99285

== ENCOUNTER 2018-08-30 18:46 | Emergency (ER) | payer OTHER ==
--- OUTSIDE RECORDS SUMMARY | 2018-08-30 18:50 | XMS REPORT ---
:1955 [facility] [address] [place] [address] Care Team Providers Name Role Phone UNKNOWN, [...] Facility Department ID 2017-11-18 2017-11-20 [facility] [id number] 13:43:00 13:54:00 MAYLIN 2017-11-07 2017-11-07 Emergency E [facility] [id number] 20:22:00 20:22:00 2017-10-06 2017-10-06 [facility] [id number] 14:25:00 14:25:00 NEEL Results Test Description Test Time Test Comments Text Results Atomic Results Result Comments CD4/CD8 Ratio Profile 2017-11-27 08:04:00 Test Item Value Reference Range Comments Absolute CD 4 [place] (test rbvt=246540) 188 /uL 359-1519 % CD 4 Pos. Lymph. (test odeg=855667) 37.6 % 30.8-58.5 Abs. CD 8 Suppressor (test voyz=901463) 183 /uL 109-897 % CD 8 Pos. Lymph. (test phaq=407340) 36.6 % 12.0-35.5 CD4/CD8 Ratio (test njeg=533338) 1.03 0.92-3.72 WBC (test obep=707784) 5.0 x10E3/uL 3.4-10.8 RBC (test cbzd=725286) 3.00 x10E6/uL 4.14-5.80 Hemoglobin (test kjnu=014005) 9.6 g/dL 13.0-17.7 Hematocrit (test hmxj=063497) 27.6 % 37.5-51.0 MCV (test pqhv=068435) 92 fL 79-97 MCH (test uwcm=121076) 32.0 pg 26.6-33.0 MCHC (test lbvp=829266) 34.8 g/dL 31.5-35.7 RDW (test cffn=208281) 15.5 % 12.3-15.4 Platelets (test brlz=921202) 113 x10E3/uL 150-379 Neutrophils (test poxg=147727) 84 % Not Estab. Lymphs (test xzuy=307462) 9 % Not Estab. Monocytes (test dhor=190982) 6 % Not Estab. Eos (test ecex=291068) 1 % Not Estab. Basos (test ggdr=734548) 0 % Not Estab. Neutrophils (Absolute) (test eidx=373794) 4.2 x10E3/uL 1.4-7.0 Lymphs (Absolute) (test jrnm=413481) 0.5 x10E3/uL 0.7-3.1 Monocytes(Absolute) (test krzv=852688) 0.3 x10E3/uL 0.1-0.9 Eos (Absolute) (test ykmp=769953) 0.0 x10E3/uL 0.0-0.4 Baso (Absolute) (test flls=166823) 0.0 x10E3/uL 0.0-0.2 Immature Granulocytes (test bjsf=840532) 0 % Not Estab. Immature Grans (Abs) (test nhfb=334977) 0.0 x10E3/uL 0.0-0.1 Culture, Blood [id number] 08:42:00Specimen: BloodCollected: 11/19/2017 00 :21 Status: Final Last Updated: 11/24/2017 08:42 Culture Result (Final) ( Final) No Growth After 5 DaysCulture, Blood Tpfipcu1050-29-07 08:42: 00Specimen: BloodCollected: 11/18/2017 20:30 Status: Final Last Updated: 08:42 Culture Result (Final) (Final) No Growth After 5 DaysPOC Glucose, [id number] 11:51:00 Test Item Value Reference Range Comments POC Glucose (test 148 mg/dL 70-115 Notify RN or MDIf you consider code=POCGLUC) your patient critically ill, the Madeline Accu-Chek InformII metershould not be used for Glucose determinations.Draw a venous Glucose and send to the Main Lab for Analysis. CK [id number] 07:42:00 Test Item Value Reference Range Comments CK (test code=CK) na U/L 39-308 CKMB (test code=CKMB) 4.0 ng/mL 0.0-4.9 CKMB% (test code=CKMBP) 0.0 % 0.0-3.4 Kfa-[id number] 07:39:00 Test Item Value Reference Range Comments NT ProBnp (test code=PBNP) >35074 pg/mL 0-124 Troponin [id number] 07:18:00 Test Item Value Reference Range Comments Troponin T (test code=MADHAV) 0.103 ng/mL 0.000-0.090 Lactate Bdbjfgauflhtk6485-12-21 07:18:00 Test Item Value Reference Range Comments LDH (test code=LDH) 271 U/L 135-225 POC Glucose, [id number] 06:50:00 Test Item Value Reference Range Comments POC Glucose (test 154 mg/dL 70-115 Notify RN or MDIf you consider code=POCGLUC) your patient critically ill, the Madeline Accu-Chek InformII metershould not be used for Glucose determinations.Draw a venous Glucose and send to the Main Lab for Analysis. CK [id number] 01:08:00 Test Item Value Reference Range Comments CK (test code=CK) na U/L 39-308 CKMB (test code=CKMB) 3.6 ng/mL 0.0-4.9 CKMB% (test code=CKMBP) 0.0 % 0.0-3.4 Troponin [id number] 01:08:00 Test Item Value Reference Range Comments Troponin T (test code=MADHAV) 0.106 ng/mL 0.000-0.090 XR CHEST 1 [id number] 21:02:01CLINICAL INFORMATION: Vascular congestion.Dictation Location: R 16Comparison: 11/18/2017 showed perihilar and lower lobe opacities. Technique: Portable AP 1951 hoursFINDINGS: Monitoring electrodes overlie the chest wall. Cardiomegaly withincreasing central vascular interstitial prominence with bibasilaropacities and effusions. No interval bone changes.IMPRESSION: Changes could indicate worsening cardiac decompensation orfluid overload.POC Glucose, [id number] 20:15:00 Test Item Value Reference Range Comments POC Glucose (test 139 mg/dL 70-115 If you consider your patient code=POCGLUC) critically ill, the Madeline Accu-Chek InformII metershould not be used for Glucose determinations.Draw a venous Glucose and send to the Main Lab for Analysis. POC Glucose, [id number] 16:52:00 Test Item Value Reference Range Comments POC Glucose (test 123 mg/dL 70-115 If you consider your patient code=POCGLUC) critically ill, the Madeline Accu-Chek InformII metershould not be used for Glucose determinations.Draw a venous Glucose and send to the Main Lab for Analysis. POC Glucose, [id number] 12:04:00 Test Item Value Reference Range Comments POC Glucose (test 140 mg/dL 70-115 If you consider your patient code=POCGLUC) critically ill, the Madeline Accu-Chek InformII metershould not be used for Glucose determinations.Draw a venous Glucose and send to the Main Lab for Analysis. POC Glucose, Jilhf0543-05-24 08:01:00 Test Item Value Reference Range Comments POC Glucose (test 126 mg/dL 70-115 If you consider your patient code=POCGLUC) critically ill, the Madeline Accu-Chek InformII metershould not be used for Glucose determinations.Draw a venous Glucose and send to the Main Lab for Analysis. CK [id number] 06:03:00 Test Item Value Reference Range Comments CK (test code=CK) na U/L 39-308 CKMB (test code=CKMB) 2.8 ng/mL 0.0-4.9 CKMB% (test code=CKMBP) 0.0 % 0.0-3.4 Basic Metabolic [id number] 05:51:00 Test Item Value Reference Range Comments [...] race is not provided, and the patient isAfrican-Pu[place]ican, multiply by 1.212. If sex is not provided, and thepatient is female, multiply by 0.742. Results for patients <18 years ofage have not been validated by the MDRD study and should be interpretedwith caution.eGFR Result Interpretation:eGFR > or=60 is in the Normal RangeeGFR < 60 may mean kidney diseaseeGFR < 15 may mean kidney failureRanges recommended by the National Kidney Foundation,http://nkdep.nih .gov Magnesium, Abine1465-58-08 05:51:00 Test Item Value Reference Range Comments Magnesium (test code=MG) 1.9 mg/dL 1.7-2.5 [id number] 05:51:00 Test Item Value Reference Range Comments Phosphorus (test code=PO4) 3.8 mg/dL 2.70-4.50 Gui-Zgz9253-56-20 05:51:00 Test Item Value Reference Range Comments NT ProBnp (test code=PBNP) >16526 pg/mL 0-124 Troponin [id number] 05:51:00 Test Item Value Reference Range Comments Troponin T (test code=MADHAV) 0.126 ng/mL 0.000-0.090 CBC with Ocxpncuzungx3357-27-42 05:34:00 Test Item Value Reference Range Comments [...] Lymph Abs (test code=ALYMPH) 0.4 K/cumm 0.5-4.6 Lincoln Abs (test code=AMONO) 0.6 K/cumm 0.0-1.2 Eos Abs (test code=AEOS) 0.13 K/cumm 0.00-0.74 Baso Abs (test code=ABASO) 0.0 K/cumm 0.00-0.21 CK [id number] 18:39:00 Test Item Value Reference Range Comments CK (test code=CK) HIDE U/L 39-308 CKMB (test code=CKMB) 3.2 ng/mL 0.0-4.9 CKMB% (test code=CKMBP) HIDE % 0.0-3.4 Troponin [id number] 18:39:00 Test Item Value Reference Range Comments Troponin T (test code=MADHAV) 0.126 ng/mL 0.000-0.090 Hep B Surface [id number] 18:39:00 Test Item Value Reference Range Comments Hep Bs Ag (test code=HBSAG) Nonreactive Non-Reactive POC Glucose, [id number] 16:47:00 Test Item Value Reference Range Comments POC Glucose (test 143 mg/dL 70-115 If you consider your patient code=POCGLUC) critically ill, the Madeline Accu-Chek InformII metershould not be used for Glucose determinations.Draw a venous Glucose and send to the Main Lab for Analysis. XR CHEST 1 [id number] 08:18:18EXAM: Portable AP chest x-rayLOCATION: R16 INDICATION: CoughCOMPARISON: 11/07/2017FINDINGS:The cardiacsilhouette is stable enlargement. There are increasinginterstitial opacities, most evident in the perihilar regions and lowerlobes. There is blunting of the costophrenic angles bilaterally. Thereis no discernible pneumothorax.IMPRESSION:Increasing perihilar and bilateral lower lobe opacities compared to theprior exam dated 11/07. Findings may represent pulmonary edema orpneumonia in the appropriate clinical setting.Comprehensive Metabolic [id number] 08:05:00 Test Item Value Reference Range Comments [...] race is not provided, and the patient isAfrican-Puerto Rican, multiply by 1.212. If sex is not provided, and thepatient is female, multiply by 0.742. Results for patients <18 years ofage have not been validated by the MDRD study and should be interpretedwith caution.eGFR Result Interpretation:eGFR > or=60 is in the Normal RangeeGFR < 60 may mean kidney diseaseeGFR < 15 may mean kidney failureRanges recommended by the National Kidney Foundation,http://nkdep.nih .gov CK Meyrx8497-90-25 08:05:00 Test Item Value Reference Range Comments CK (test code=CK) 149 U/L 39-308 Troponin [id number] 08:02:00 Test Item Value Reference Range Comments Troponin T (test code=MADHAV) 0.114 ng/mL 0.000-0.090 Mrt-Ali0617-05-19 08:02:00 Test Item Value Reference Range Comments NT ProBnp (test code=PBNP) >58702 pg/mL 0-124 CBC with Nflhpgasaujp1046-19-03 07:53:00 Test Item Value Reference Range Comments [...] Lymph Abs (test code=ALYMPH) 0.9 K/cumm 0.5-4.6 [place] Abs (test code=AMONO) 0.4 K/cumm 0.0-1.2 Eos Abs (test code=AEOS) 0.11 K/cumm 0.00-0.74 Baso Abs (test code=ABASO) 0.0 K/cumm 0.00-0.21 XR CHEST 1 [id number] 21:38:09EXAM: CHEST ONE VIEWINDICATION: CoughCOMPARISON: October 06, 2017TECHNIQUE: AP view of the chest.FINDINGS: The cardiomediastinal silhouette is unchanged. Mild congestive changesbilaterally. No pneumothorax or pleural effusion is identified. Theosseous structures are unremarkable.IMPRESSION: Diffuse congestive changes bilaterally.LOCATION: R16US DUPLX EXT VEINS COMPR, [id number] 20:09:34AFTER HOURS SERVICE ON: 10/06/2017 8: 09 PMRIGHT Lower Extremity Venous Duplex Doppler ExaminationLocation Code H21Wanynnu: SwellingTechnique: Real-time castillo scale, Doppler spectral analysis [...] imaged vessels.AFTER HOURS SERVICE ON: 10/06/2017 8:09 [facility] Lower Extremity Venous Duplex Doppler ExaminationLocation Code M40Rhcxmlw : SwellingTechnique: Real-time castillo scale, Doppler spectral [...] of DVT in the imaged vessels.Comprehensive Metabolic [id number] 17 :40:00 Test Item Value Reference Range [...] race is not provided, and the patient isAfrican-Puerto Rican, multiply by 1.212. If sex is not [...] the National Kidney Foundation,http://nkdep.nih .gov CBC with Fbbgrqeeyqge1156-54-41 17:15:00 Test Item Value Reference Range Comments [...] Lymph Abs (test code=ALYMPH) 1.3 K/cumm 0.5-4.6 [place] Abs (test code=AMONO) 0.6 K/cumm 0.0-1.2 Eos Abs (test code=AEOS) 0.12 K/cumm 0.00-0.74 Baso Abs (test code=ABASO) 0.0 K/cumm 0.00-0.21 XR CHEST 1 [id number] 16:56:42CHEST 1 VIEW: F29EQATIIS: coughCOMPARISON: Sep 24, 2017FINDINGS:The heart is enlarged. There is engorgement of the central pulmonaryvasculature. There are patchy bibasilar areas of infiltrate oratelectasis with bilateral effusions. No pneumothorax is present. IMPRESSION: 1. Patchy areas of atelectasis or infiltrate in the lung bases withsmall bilateral effusions and vascular congestion most likely secondaryto CHF.Culture, Blood Nilknpf3148-08-21 14:58:00Specimen: BloodCollected: 2017 13:05 Status: Final Last Updated: 09/29/2017 14:58 (1) ER Bed 1 Culture Result (Final) (Final) No Growth After 5 DaysCulture, Blood [id number] 14:58:00Specimen: BloodCollected: 09/24/2017 12:50 Status: Final Last Updated: 09/29/2017 14:58 (1) ER Bed 1 Culture Result (Final) (Final) No Growth After 5 DaysPOC Glucose, [id number] 10:54:00 Test Item Value Reference Range Comments POC Glucose (test 168 mg/dL 70-115 If you consider your patient code=POCGLUC) critically ill, the Madeline Accu-Chek InformII metershould not be used for Glucose determinations.Draw a venous Glucose and send to the Main Lab for Analysis. POC Glucose, [id number] 07:16:00 Test Item Value Reference Range Comments POC Glucose (test 143 mg/dL 70-115 If you consider your patient code=POCGLUC) critically ill, the Madeline Accu-Chek InformII metershould not be used for Glucose determinations.Draw a venous Glucose and send to the Main Lab for Analysis. CBC with Eqeoryyjvfsf4509-75-75 07:15:00 Test Item Value Reference Range Comments [...] Lymph Abs (test code=ALYMPH) 1.3 K/cumm 0.5-4.6 [place] Abs (test code=AMONO) 0.7 K/cumm 0.0-1.2 Eos Abs (test code=AEOS) 0.07 K/cumm 0.00-0.74 Baso Abs (test code=ABASO) 0.0 K/cumm 0.00-0.21 Magnesium, [id number] 07:03:00 Test Item Value Reference Range Comments Magnesium (test code=MG) 2.0 mg/dL 1.7-2.5 Basic Metabolic [id number] 07:03:00 Test Item Value Reference Range Comments [...] race is not provided, and the patient isAfrican-Puerto Rican, multiply by 1.212. If sex is not [...] the National Kidney Foundation,http://nkdep.nih .gov POC Glucose, [id number] 21:40:00 Test Item Value Reference Range Comments POC Glucose (test 129 mg/dL 70-115 If you consider your patient code=POCGLUC) critically ill, the Madeline Accu-Chek InformII metershould not be used for Glucose determinations.Draw a venous Glucose and send to the Main Lab for Analysis. Hep B Surface [id number] 18:36:00 Test Item Value Reference Range Comments Hep Bs Ag (test code=HBSAG) Nonreactive Non-Reactive POC Glucose, [id number] 10:51:00 Test Item Value Reference Range Comments POC Glucose (test 216 mg/dL 70-115 If you consider your patient code=POCGLUC) critically ill, the Madeline Accu-Chek InformII metershould not be used for Glucose determinations.Draw a venous Glucose and send to the Main Lab for Analysis. POC Glucose, [id number] 07:57:00 Test Item Value Reference Range Comments POC Glucose (test 164 mg/dL 70-115 If you consider your patient code=POCGLUC) critically ill, the Madeline Accu-Chek InformII metershould not be used for Glucose determinations.Draw a venous Glucose and send to the Main Lab for Analysis. POC Glucose, [id number] 19:47:00 Test Item Value Reference Range Comments POC Glucose (test 140 mg/dL 70-115 Notify RN or MDIf you consider code=POCGLUC) your patient critically ill, the Madeline Accu-Chek InformII metershould not be used for Glucose determinations.Draw a venous Glucose and send to the Main Lab for Analysis. Troponin [id number] 19:36:00 Test Item Value Reference Range Comments Troponin T (test code=MADHAV) 0.121 ng/mL 0.000-0.090 CK [id number] 19:25:00 Test Item Value Reference Range Comments CK (test code=CK) 160 U/L 39-308 The value HIDE originally released by [employer] on 09/25/2017 19:12 waschanged to 160 by [employer] on 09/25/2017 19:24 CKMB (test code=CKMB) 3.0 ng/mL 0.0-4.9 CKMB% (test code=CKMBP) 1.9 % 0.0-3.4 The value HIDE originally released by [employer] on 09/25/2017 19:12 waschanged to 1.9 by BrozengoAdCrimson on 09/25/2017 19:24 POC Glucose, [id number] 16:42:00 Test Item Value Reference Range Comments POC Glucose (test 123 mg/dL 70-115 If you consider your patient code=POCGLUC) critically ill, the Madeline Accu-Chek InformII metershould not be used for Glucose determinations.Draw a venous Glucose and send to the Main Lab for Analysis. POC Glucose, [id number] 12:09:00 Test Item Value Reference Range Comments POC Glucose (test 141 mg/dL 70-115 If you consider your patient code=POCGLUC) critically ill, the Madeline Accu-Chek InformII metershould not be used for Glucose determinations.Draw a venous Glucose and send to the Main Lab for Analysis. Hep B Surface [id number] 07:59:00 Test Item Value Reference Range Comments Hep Bs Ag (test code=HBSAG) Nonreactive Non-Reactive CK [id number] 07:43:00 Test Item Value Reference Range Comments CK (test code=CK) n/a U/L 39-308 CKMB (test code=CKMB) 2.4 ng/mL 0.0-4.9 CKMB% (test code=CKMBP) 0.0 % 0.0-3.4 Troponin [id number] 07:38:00 Test Item Value Reference Range Comments Troponin T (test code=MADHAV) 0.134 ng/mL 0.000-0.090 Thyroid Stimulating Hormone (TSH)2017-09-25 07:38:00 Test Item Value Reference Range Comments TSH (test code=TSH) 1.10 mIU/mL 0.270-4.200 Rrknzqustg2538-30-04 07:38:00 Test Item Value Reference Range Comments Phosphorus (test code=PO4) 3.4 mg/dL 2.70-4.50 Comprehensive Metabolic [id number] 07:38:00 Test Item Value Reference Range Comments [...] race is not provided, and the patient isAfrican-Pu[place]ican, multiply by 1.212. If sex is not provided, and thepatient is female, multiply by 0.742. Results for patients <18 years ofage have not been validated by the MDRD study and should be interpretedwith caution.eGFR Result Interpretation:eGFR > or=60 is in the Normal RangeeGFR < 60 may mean kidney diseaseeGFR < 15 may mean kidney failureRanges recommended by the National Kidney Foundation,http://nkdep.nih .gov Magnesium, Oqtmj8851-26-03 07:38:00 Test Item Value Reference Range Comments Magnesium (test code=MG) 2.0 mg/dL 1.7-2.5 CK [id number] 07:31:00 Test Item Value Reference Range Comments CK (test code=CK) 159 U/L 39-308 Lipid [id number] 07:31:00 Test Item Value Reference Range Comments Cholesterol (test 118 mg/dL 0-200 code=CHOL) Triglycerides (test 170 mg/dL 9-200 code=TRIG) HDL (test code=HDL) 49 mg/dL 40-60 Chol/HDL (test 2.4 Ratio 0.0-5.0 code=CHOLPHDL) LDL, Calculated (test 35 0-130 (NOTE)RISK OF HEART code=LDLC) DISEASEPublished by [place] Heart AssociationAnalyte Optimal Boderline Increased RiskCHOL <200 200-239 >240TRIG <150 150-199 >200HDL Male: >60 <40HDL Female: >60 <50LDL <100 130-159 >160LDL NEAR OPTIMAL IS 100-129 VLDL (test code=VLDL) 34 mg/dL 5-40 LDL/HDL (test code=LDLPHDL) 1 Glycosylated Dixvwqrjpa5840-21-06 07:24:00 Test Item Value Reference Range Comments HBA1c (test code=HBA1C) 5.0 % 4.8-5.9 CBC with Kptmihtavckn9077-93-95 07:20:00 Test Item Value Reference Range Comments [...] Lymph Abs (test code=ALYMPH) 0.8 K/cumm 0.5-4.6 [place] Abs (test code=AMONO) 0.5 K/cumm 0.0-1.2 Eos Abs (test code=AEOS) 0.10 K/cumm 0.00-0.74 Baso Abs (test code=ABASO) 0.0 K/cumm 0.00-0.21 POC Glucose, Ejwsf7729-79-00 07:03:00 Test Item Value Reference Range Comments POC Glucose (test 147 mg/dL 70-115 If you consider your patient code=POCGLUC) critically ill, the Madeline Accu-Chek InformII metershould not be used for Glucose determinations.Draw a venous Glucose and send to the Main Lab for Analysis. POC Glucose, [id number] 22:05:00 Test Item Value Reference Range Comments POC Glucose (test 134 mg/dL 70-115 If you consider your patient code=POCGLUC) critically ill, the Madeline Accu-Chek InformII metershould not be used for Glucose determinations.Draw a venous Glucose and send to the Main Lab for Analysis. Blood Gas+Lytes+Glu+Ca+Hgb+Hct+[id number] 18:31:00 Test Item Value Reference Range Comments [...] Celcius code=PTTEMP) Comment (test code=COMMENT) [email or web address] Puncture Site (test code=PUNSITE) Radial. R Drawing Tech ID (test medel fi code=DRAWTECH) iPAP (test code=IPAP) 0 cmH2O Respiratory Rate (test code=RESP 0 RATE) Lactic Acid, Blood Gas (test 0.4 mmol/L code=BGLA) CT CHEST W/O [id number] 16:48:03CT CHEST W/O CONTRASTLOCATION CODE: R16 HISTORY: [...] bilateral axillary, prevascular, andparatracheal lymph nodes.Influenza B [id number] 14:36:00Specimen: NasalCollected: 09/24/2017 14:04 Status: Final Last [...] Culture of negative samples is recommended.Influenza A [id number] 14:34:00Specimen: NasalCollected: 09/24/2017 14:04 Status: Final Last [...] Culture of negative samples is recommended.Comprehensive Metabolic [id number] 13:54:00 Test Item Value Reference Range Comments [...] race is not provided, and the patient isAfrican-Pu[place]ican, multiply by 1.212. If sex is not provided, and thepatient is female, multiply by 0.742. Results for patients <18 years ofage have not been validated by the MDRD study and should be interpretedwith caution.eGFR Result Interpretation:eGFR > or=60 is in the Normal RangeeGFR < 60 may mean kidney diseaseeGFR < 15 may mean kidney failureRanges recommended by the National Kidney Foundation,http://nkdep.nih .gov Troponin [id number] 13:54:00 Test Item Value Reference Range Comments Troponin T (test code=MADHAV) 0.124 ng/mL 0.000-0.090 Dom-[id number] 13:54:00 Test Item Value Reference Range Comments NT ProBnp (test code=PBNP) >17463 pg/mL 0-124 CK [id number] 13:54:00 Test Item Value Reference Range Comments CK (test code=CK) 222 U/L 39-308 CKMB (test code=CKMB) 3.1 ng/mL 0.0-4.9 CKMB% (test code=CKMBP) 1.4 % 0.0-3.4 CK [id number] 13:54:00 Test Item Value Reference Range Comments CK (test code=CK) 222 U/L 39-308 Partial Thromboplastin [id number] 13:43:00 Test Item Value Reference Range Comments aPTT (test code=PTT) 35.70 seconds 24.39-37.25 Prothrombin [id number] 13:43:00 Test Item Value Reference Range Comments PT (test code=PT) 11.30 seconds 9.78-13.35 INR (test code=INR) 0.99 Ratio 0.6-1.2 Lactic Acid [id number] 13:41:00 Test Item Value Reference Range Comments Lactic Acid, Bld (test code=LAC) 1.3 mmol/L 0.5-1.9 CBC with [id number] 13:32:00 Test Item Value Reference Range Comments [...] Lymph Abs (test code=ALYMPH) 1.2 K/cumm 0.5-4.6 Lincoln Abs (test code=AMONO) 0.6 K/cumm 0.0-1.2 Eos Abs (test code=AEOS) 0.23 K/cumm 0.00-0.74 Baso Abs (test code=ABASO) 0.0 K/cumm 0.00-0.21 XR CHEST 1 [id number] 12:50:14XR CHEST 1 VIEWLOCATION: [id number]: None.INDICATION: CoughDISCUSSION:A single portable chest radiograph was [...]
--- OUTSIDE RECORDS SUMMARY | 2018-08-30 18:50 | XMS REPORT ---
:1955 Author Organization [facility] Address Unavailable , Allergies, Adverse Reactions, [...] Patient Date Date Name Instruction AMLODIPINE AMLODIPINE 76856923237 Active Mo Active BESYLATE 10 MG BESYLATE Dicks OD ORAL TABLET CALCIUM ACETATE CALCIUM ACETATE 87536851889 Active Mo Active (PHOS BINDER) (PHOS BINDER) Dicks OD 667 MG ORAL CAPSULE CRESTOR 5 MG ROSUVASTATIN 70374016160 Active Mo Active ORAL TABLET CALCIUM Dicks OD EPIVIR SOLUTION LAMIVUDINE SOLN 45217110468 Active Mo Active Dicks OD ISENTRESS RALTEGRAVIR 12818512487 Active Mo Active TABLET POTASSIUM TABS Dicks OD KALETRA TABLET LOPINAVIR-RITONAVI 15358064735 Active Mo Active R TABS Dicks OD LAMIVUDINE LAMIVUDINE TABS 51410596973 Active Mo Active TABLET Dicks OD PROAIR HFA ALBUTEROL SULFATE 78753144989 Active Mo Active AEROSOL AERS Dicks OD SOLUTION PEDRO-EAMON RX B-COMPLEX W/ C & 55270093700 Active Mo Active TABLET FOLIC ACID TABS Dicks OD VITAMIN D2 ERGOCALCIFEROL 45729501198 Active Mo Active TABLET TABS Dicks OD Diagnostic Results Date Name Value Unit Range Description Append: Eye Exam - Hematology T-helper cells (CD4) count 602 uL Append: Eye Exam - Serology HIV-1RNA, serum, by PCR, quantitative 20 {Copies}/mL Procedures Code Procedure Name Date Entry Date Standard Description CPT-23948 Dispensing Visit (UNLIVSTED OPHTHALMOLOGICAL 10:14:39 CDT SERVICE/PROCEDURE) CPT-07036 Est Patient Comprehensive Opt - 35820 15:29:32 CDT CPT-57267 New Patient Intermediate Opt - 38745 14:28:41 CDT
--- NOTE | 2018-08-30 19:18 | EDPHYS ---
Physician Documentation [facility] Name: Salvatore Goldman Age: 63 yrs Sex: Male : 1955 Arrival Date: 08/30/2018 Time: 18:51 Bed 24 Private MD: ED Physician David Cardenas HPI: 08/30 19:12 This 63 yrs old Black Male presents to ER via Ambulatory with complaints of Sinus Pain, pkl Cough. 19:12 The patient or guardian reports cough, described as mild, with productive sputum, that pkl is white. Onset: The symptoms/episode began/occurred 3 day(s) ago. Associated signs and symptoms: Pertinent positives: rhinorrhea, sinus congestion. Historical: - Allergies: 18:53 codeine sulfate; sv - PMHx: 18:53 Cirrhosis; Diabetes - NIDDM; Dialysis; heart valve; Hepatitis; HIV; Hyperlipidemia; sv Karposi Sarcoma (left leg); kidney failure; - Immunization history:: Flu vaccine status is unknown. - Social history:: Smoking status: Patient/guardian denies using tobacco. - Ebola Screening: : No symptoms or risks identified at this time. ROS: 19:12 Eyes: Negative for injury, pain, redness, and discharge. pkl 19:12 ENT: Positive for nasal discharge, sinus congestion. 19:12 Neck: Negative for stiffness. 19:12 Cardiovascular: Negative for chest pain. 19:12 Respiratory: Positive for cough, with white sputum, Negative for shortness of breath. 19:12 Abdomen/GI: Negative for abdominal pain, nausea, vomiting, and diarrhea. 19:12 Back: Negative for pain at rest. 19:12 : Negative for urinary symptoms. 19:12 MS/extremity: Negative for acute changes. 19:12 Skin: Negative for rash. 19:12 Neuro: Negative for altered mental status. Exam: 19:12 Head/Face: Normocephalic, atraumatic. Eyes: Pupils equal round and reactive to light, pkl extra-ocular motions intact. Lids and lashes normal. Conjunctiva and sclera are non-icteric and not injected. Cornea within normal limits. Periorbital areas with no swelling, redness, or edema. ENT: Nares patent. No nasal discharge, no septal abnormalities noted. Tympanic membranes are normal and external auditory canals are clear. Oropharynx with no redness, swelling, or masses, exudates, or evidence of obstruction, uvula midline. Mucous membranes moist. Neck: Trachea midline, no thyromegaly or masses palpated, and no cervical lymphadenopathy. Supple, full range of motion without nuchal rigidity, or vertebral point tenderness. No Meningismus. Chest/axilla: Normal chest wall appearance and motion. Nontender with no deformity. No lesions are appreciated. Cardiovascular: Regular rate and rhythm with a normal S1 and S2. No gallops, murmurs, or rubs. Normal PMI, no JVD. No pulse deficits. Respiratory: Lungs have equal breath sounds bilaterally, clear to auscultation and percussion. No rales, rhonchi or wheezes noted. No increased work of breathing, no retractions or nasal flaring. Abdomen/GI: Soft, non-tender, with normal bowel sounds. No distension or tympany. No guarding or rebound. No evidence of tenderness throughout. Back: No spinal tenderness. No costovertebral tenderness. Full range of motion. Skin: Warm, dry with normal turgor. Normal color with no rashes, no lesions, and no evidence of cellulitis. MS/ Extremity: Pulses equal, no cyanosis. Neurovascular intact. Full, normal range of motion. Neuro: Awake and alert, GCS 15, oriented to person, place, time, and situation. Cranial nerves II-XII grossly intact. Motor strength 5/5 in all extremities. Sensory grossly intact. Cerebellar exam normal. Normal gait. Vital Signs: 18:53 BP 140 / 78; Pulse 76; Resp 20; Temp 98.9; Pulse Ox 98% ; Weight 70 kg; Height 5 ft. 7 sv in. (170.18 cm); 18:53 Body Mass Index 24.17 (70.00 kg, 170.18 cm) sv MDM: 19:04 Patient medically screened. pkl 19:12 Data reviewed: vital signs, nurses notes. pkl Administered Medications: 19:34 Drug: Dextromethorphan-Guaifenesin Liquid 10 mg-100 mg/5 mL 10 ml Route: PO; kr2 19:35 Follow up: Response: Medication administered at discharge. kr2 19:34 Drug: Bactrim (160 mg-800 mg (DS) 1 tablet Route: PO; kr2 19:34 Follow up: Response: Medication administered at discharge. kr2 Disposition: 08/30/18 19:17 Discharged to Home. Impression: Sinusitis. Bronchitis. - Condition is Stable. - Prescriptions for Guaifenesin- DM 10-100 mg/5 mL Oral Liquid - take 10 milliliter by ORAL route every 8 hours As needed as needed; 120 milliliter. Bactrim DS 800- 160 mg Oral Tablet - take 1 tablet by ORAL route every 12 hours for 10 days; 20 tablet. - Medication Reconciliation Form, Thank You Letter, Antibiotic Education, Prescription Opioid Use form. - Follow up: Private Physician; When: 2 - 3 days; Reason: Re-evaluation by your physician. Signatures: Becky Ricardo RN RN sv aDvid Cardenas MD MD pkl Sarita Ferrari RN RN kr2 Corrections: (The following items were deleted from the chart) 19:40 19:17 08/30/2018 19:17 Discharged to Home. Impression: Sinusitis. Bronchitis. Condition kr2 is Stable. Forms are Medication Reconciliation Form, Thank You Letter, Antibiotic Education, Prescription Opioid Use. Follow up: Private Physician; When: 2 - 3 days; Reason: Re-evaluation by your physician. pkl
--- NOTE | 2018-08-30 19:18 | ER ---
Nurse's Notes [facility] Name: Salvatore Goldman Age: 63 yrs Sex: Male : 1955 Arrival Date: 08/30/2018 Time: 18:51 Bed 24 Private MD: Diagnosis: Sinusitis. Bronchitis Presentation: 08/30 18:52 Presenting complaint: Patient states: cough, runny nose x 3 days. Denies fever. sv Transition of care: patient was not received from another setting of care. Onset of symptoms was August 27, 2018. Care prior to arrival: None. 18:52 Method Of Arrival: Ambulatory sv 18:52 Acuity: NARDA 4 sv 19:10 Risk Assessment: Do you want to hurt yourself or someone else? Patient reports no kr2 desire to harm self or others. Initial Sepsis Screen: Does the patient meet any 2 criteria? No. Patient's initial sepsis screen is negative. Does the patient have a suspected source of infection? No. Patient's initial sepsis screen is negative. Triage Assessment: 18:55 General: Appears in no apparent distress. uncomfortable, Behavior is calm, cooperative, sv appropriate for age. Pain:. EENT: Reports nasal discharge that is watery. Neuro: Level of Consciousness is awake, alert, obeys commands, Oriented to person, place, time, situation, Moves all extremities. Full function Gait is steady. Respiratory: Reports cough that is persistent Respiratory effort is even, unlabored, Respiratory pattern is regular, symmetrical. 19:35 Headache History:. Pain: Complains of pain in face Pain does not radiate. Pain kr2 currently is 4 out of 10 on a pain scale. Quality of pain is described as aching, pressure, Pain began 2-3 days ago. Is continuous, Alleviated by nothing. Also complains of inability to perform activities of daily living. Historical: - Allergies: 18:53 codeine sulfate; sv - PMHx: 18:53 Cirrhosis; Diabetes - NIDDM; Dialysis; heart valve; Hepatitis; HIV; Hyperlipidemia; sv Karposi Sarcoma (left leg); kidney failure; - Immunization history:: Flu vaccine status is unknown. - Social history:: Smoking status: Patient/guardian denies using tobacco. - Ebola Screening: : No symptoms or risks identified at this time. Screenin:35 Abuse screen: Denies threats or abuse. Denies injuries from another. Nutritional kr2 screening: No deficits noted. Tuberculosis screening: No symptoms or risk factors identified. Fall Risk None identified. Assessment: 19:10 General: Appears in no apparent distress. uncomfortable, well groomed, well nourished, kr2 Behavior is calm, cooperative, appropriate for age. Pain: Complains of pain in face Pain currently is 4 out of 10 on a pain scale. Neuro: Level of Consciousness is awake, alert, obeys commands, Oriented to person, place, time, situation. Cardiovascular: Patient's skin is warm and dry. Respiratory: Reports cough that is productive, persistent Airway is patent Respiratory effort is even, unlabored, Respiratory pattern is regular, symmetrical. EENT: Nares are clear bilaterally Oral mucosa is moist. Throat is clear. Derm: Skin is intact, is healthy with good turgor, Skin is pink, warm \T\ dry. Vital Signs: 18:53 BP 140 / 78; Pulse 76; Resp 20; Temp 98.9; Pulse Ox 98% ; Weight 70 kg; Height 5 ft. 7 sv in. (170.18 cm); 18:53 Body Mass Index 24.17 (70.00 kg, 170.18 cm) sv ED Course: 18:51 Patient arrived in ED. sb2 18:52 Triage completed. sv 18:56 Arm band placed on. sv 19:04 David Cardenas MD is Attending Physician. pkl 19:10 Patient has correct armband on for positive identification. Bed in low position. Call kr2 light in reach. Side rails up X 1. Pulse ox on. NIBP on. 19:30 Sarita Ferrari, RN is Primary Nurse. kr2 19:35 No provider procedures requiring assistance completed. Patient did not have IV access kr2 during this emergency room visit. Administered Medications: 19:34 Drug: Dextromethorphan-Guaifenesin Liquid 10 mg-100 mg/5 mL 10 ml Route: PO; kr2 19:35 Follow up: Response: Medication administered at discharge. kr2 19:34 Drug: Bactrim (160 mg-800 mg (DS) 1 tablet Route: PO; kr2 19:34 Follow up: Response: Medication administered at discharge. kr2 Outcome: 19:17 Discharge ordered by . pkl 19:37 Discharged to home ambulatory, with family. kr2 19:37 Condition: good 19:37 Discharge instructions given to patient, family, Instructed on discharge instructions, follow up and referral plans. medication usage, Demonstrated understanding of instructions, follow-up care, medications, Prescriptions given X 2. 19:40 Patient left the ED. kr2 Signatures: Becky Ricardo, RN RN sv David Cardenas MD MD pkl Reaves, Karey, RN RN kr2 Ninoska Lozano sb2 Corrections: (The following items were deleted from the chart) 18:56 18:53 Pulse 76bpm; Resp 20bpm; Pulse Ox 98%; Temp 98.9F; 70 kg; Height 5 ft. 7 in.; sv BMI: 24.1; sv
[2018-08-30] MEDS ORDERED: GUAIFENESIN/DM 5 ML UCUP ONE (19:36)
[2018-08-30] MEDS ORDERED: SMZ./TMP. 800/160 MG TABLET ONE (19:36)
[2018-08-30 19:45] VITALS: BP 140/78; TEMP 98.9; O2SAT 98
== END 2018-08-30 19:40 | disposition home or self-care (01) ==
LOC: ER 18:46
DX: J32.9 Chronic sinusitis, unspecified (principal); J40 Bronchitis, not specified as acute or chronic
CPT/HCPCS: 99283

== ENCOUNTER 2018-09-20 15:07 | Observation (INO) | payer OTHER ==
--- OUTSIDE RECORDS SUMMARY | 2018-09-20 15:11 | XMS REPORT ---
:1955 Author Organization [facility] Address [address] [place] [address] Care Team Providers Name Role Phone UNKNOWN, [...] Facility Department ID 2017-11-18 2017[facility]11-[id number] 13:43:00 13:54:00 MAYLIN 2017-11-07 2017-11-07 Emergency E [facility] [id number] 20:22:00 20:22:00 2017-10-06 2017-10-06 [facility] [id number] 14:25:00 14:25:00 NEEL Results Test Description Test Time Test Comments Text Results Atomic Results Result Comments CD4/CD8 Ratio Profile 2017-11-27 08:04:00 Test Item Value Reference Range Comments Absolute CD 4 Pavilion (test iwnb=694267) 188 /uL 359-1519 % CD 4 Pos. Lymph. (test mikb=882632) 37.6 % 30.8-58.5 Abs. CD 8 Suppressor (test itam=674203) 183 /uL 109-897 % CD 8 Pos. Lymph. (test qdbk=594145) 36.6 % 12.0-35.5 CD4/CD8 Ratio (test hufp=389298) 1.03 0.92-3.72 WBC (test bnfq=475318) 5.0 x10E3/uL 3.4-10.8 RBC (test dpsy=833671) 3.00 x10E6/uL 4.14-5.80 Hemoglobin (test ebru=457192) 9.6 g/dL 13.0-17.7 Hematocrit (test nggk=305150) 27.6 % 37.5-51.0 MCV (test ixgt=173713) 92 fL 79-97 MCH (test elhu=313683) 32.0 pg 26.6-33.0 MCHC (test tkhc=305874) 34.8 g/dL 31.5-35.7 RDW (test uucu=877348) 15.5 % 12.3-15.4 Platelets (test qugx=221907) 113 x10E3/uL 150-379 Neutrophils (test vuxn=965078) 84 % Not Estab. Lymphs (test smoq=695984) 9 % Not Estab. Monocytes (test srbt=383736) 6 % Not Estab. Eos (test ohrf=833128) 1 % Not Estab. Basos (test vqxi=064285) 0 % Not Estab. Neutrophils (Absolute) (test iakt=002179) 4.2 x10E3/uL 1.4-7.0 Lymphs (Absolute) (test gfxd=929981) 0.5 x10E3/uL 0.7-3.1 Monocytes(Absolute) (test vkty=254202) 0.3 x10E3/uL 0.1-0.9 Eos (Absolute) (test fdsi=318567) 0.0 x10E3/uL 0.0-0.4 Baso (Absolute) (test cpoh=945505) 0.0 x10E3/uL 0.0-0.2 Immature Granulocytes (test wlja=086475) 0 % Not Estab. Immature Grans (Abs) (test ldwi=722429) 0.0 x10E3/uL 0.0-0.1 Culture, Blood [id number] 08:42:00Specimen: BloodCollected: 11/19/2017 00 :21 Status: Final Last Updated: 11/24/2017 08:42 Culture Result (Final) ( Final) No Growth After 5 DaysCulture, Blood [id number] 08:42: 00Specimen: BloodCollected: 11/18/2017 20:30 Status: Final Last Updated: 08:42 Culture Result (Final) (Final) No Growth After 5 DaysPOC Glucose, [id number] 11:51:00 Test Item Value Reference Range Comments POC Glucose (test 148 mg/dL 70-115 Notify RN or MDIf you consider code=POCGLUC) your patient critically ill, the [facility]eline Accu-Chek InformII metershould not be used for Glucose determinations.Draw a venous Glucose and send to the Main Lab for Analysis. CK [id number] 07:42:00 Test Item Value Reference Range Comments CK (test code=CK) na U/L 39-308 CKMB (test code=CKMB) 4.0 ng/mL 0.0-4.9 CKMB% (test code=CKMBP) 0.0 % 0.0-3.4 Ogi-[id number] 07:39:00 Test Item Value Reference Range Comments NT ProBnp (test code=PBNP) >30961 pg/mL 0-124 Troponin [id number] 07:18:00 Test Item Value Reference Range Comments Troponin T (test code=MADHAV) 0.103 ng/mL 0.000-0.090 Lactate Ckcdaedrrnjza3930-20-01 07:18:00 Test Item Value Reference Range Comments LDH (test code=LDH) 271 U/L 135-225 POC Glucose, [id number] 06:50:00 Test Item Value Reference Range Comments POC Glucose (test 154 mg/dL 70-115 Notify RN or MDIf you consider code=POCGLUC) your patient critically ill, the Madeline Accu-Chek InformII metershould not be used for Glucose determinations.Draw a venous Glucose and send to the Main Lab for Analysis. CK [id number] 01:08:00 Test Item Value Reference Range Comments CK (test code=CK) na U/L 39-308 CKMB (test code=CKMB) 3.6 ng/mL 0.0-4.9 CKMB% (test code=CKMBP) 0.0 % 0.0-3.4 Troponin [id number] 01:08:00 Test Item Value Reference Range Comments Troponin T (test code=MADHAV) 0.106 ng/mL 0.000-0.090 XR CHEST 1 [id number] 21:02:01CLINICAL INFORMATION: Vascular congestion.Dictation Location: R 16Comparison: 11/18/2017 showed perihilar and lower lobe opacities. Technique: Portable AP 1951 hoursFINDINGS: Monitoring electrodes overlie the chest wall. Cardiomegaly withincreasing central vascular interstitial prominence with bibasilaropacities and effusions. No interval bone changes.IMPRESSION: Changes could indicate worsening cardiac decompensation orfluid overload.POC Glucose, [id number] 20:15:00 Test Item Value Reference Range Comments POC Glucose (test 139 mg/dL 70-115 If you consider your patient code=POCGLUC) critically ill, the Madeline Accu-Chek InformII metershould not be used for Glucose determinations.Draw a venous Glucose and send to the Main Lab for Analysis. POC Glucose, [id number] 16:52:00 Test Item Value Reference Range Comments POC Glucose (test 123 mg/dL 70-115 If you consider your patient code=POCGLUC) critically ill, the Madeline Accu-Chek InformII metershould not be used for Glucose determinations.Draw a venous Glucose and send to the Main Lab for Analysis. POC Glucose, [id number] 12:04:00 Test Item Value Reference Range Comments POC Glucose (test 140 mg/dL 70-115 If you consider your patient code=POCGLUC) critically ill, the Madeline Accu-Chek InformII metershould not be used for Glucose determinations.Draw a venous Glucose and send to the Main Lab for Analysis. POC Glucose, [id number] 08:01:00 Test Item Value Reference Range Comments POC Glucose (test 126 mg/dL 70-115 If you consider your patient code=POCGLUC) critically ill, the Madeline Accu-Chek InformII metershould not be used for Glucose determinations.Draw a venous Glucose and send to the Main Lab for Analysis. CK [id number] 06:03:00 Test Item Value Reference Range Comments CK (test code=CK) na U/L 39-308 CKMB (test code=CKMB) 2.8 ng/mL 0.0-4.9 CKMB% (test code=CKMBP) 0.0 % 0.0-3.4 Basic Metabolic [id number] 05:51:00 Test Item Value Reference Range Comments [...] race is not provided, and the patient isAfrican-Nigerien, multiply by 1.212. If sex is not provided, and thepatient is female, multiply by 0.742. Results for patients <18 years ofage have not been validated by the MDRD study and should be interpretedwith caution.eGFR Result Interpretation:eGFR > or=60 is in the Normal RangeeGFR < 60 may mean kidney diseaseeGFR < 15 may mean kidney failureRanges recommended by the National Kidney Foundation,http://nkdep.nih .gov Magnesium, [id number] 05:51:00 Test Item Value Reference Range Comments Magnesium (test code=MG) 1.9 mg/dL 1.7-2.5 [id number] 05:51:00 Test Item Value Reference Range Comments Phosphorus (test code=PO4) 3.8 mg/dL 2.70-4.50 Rdn-Lkb4820-27-20 05:51:00 Test Item Value Reference Range Comments NT ProBnp (test code=PBNP) >33535 pg/mL 0-124 Troponin [id number] 05:51:00 Test Item Value Reference Range Comments Troponin T (test code=MADHAV) 0.126 ng/mL 0.000-0.090 CBC with Lvpngzrwbagt2648-15-19 05:34:00 Test Item Value Reference Range Comments [...] Lymph Abs (test code=ALYMPH) 0.4 K/cumm 0.5-4.6 Beadle Abs (test code=AMONO) 0.6 K/cumm 0.0-1.2 Eos Abs (test code=AEOS) 0.13 K/cumm 0.00-0.74 Baso Abs (test code=ABASO) 0.0 K/cumm 0.00-0.21 CK [id number] 18:39:00 Test Item Value Reference Range Comments CK (test code=CK) HIDE U/L 39-308 CKMB (test code=CKMB) 3.2 ng/mL 0.0-4.9 CKMB% (test code=CKMBP) HIDE % 0.0-3.4 Troponin [id number] 18:39:00 Test Item Value Reference Range Comments Troponin T (test code=MADHAV) 0.126 ng/mL 0.000-0.090 Hep B Surface [id number] 18:39:00 Test Item Value Reference Range Comments Hep Bs Ag (test code=HBSAG) Nonreactive Non-Reactive POC Glucose, [id number] 16:47:00 Test Item Value Reference Range Comments POC Glucose (test 143 mg/dL 70-115 If you consider your patient code=POCGLUC) critically ill, the Madeline Accu-Chek InformII metershould not be used for Glucose determinations.Draw a venous Glucose and send to the Main Lab for Analysis. XR CHEST 1 [id number] 08:18:18EXAM: Portable AP chest x-rayLOCATION: R16 INDICATION: CoughCOMPARISON: 11/07/2017FINDINGS:The cardiacsilhouette is stable enlargement. There are increasinginterstitial opacities, most evident in the perihilar regions and lowerlobes. There is blunting of the costophrenic angles bilaterally. Thereis no discernible pneumothorax.IMPRESSION:Increasing perihilar and bilateral lower lobe opacities compared to theprior exam dated 11/07. Findings may represent pulmonary edema orpneumonia in the appropriate clinical setting.Comprehensive Metabolic [id number] 08:05:00 Test Item Value Reference Range Comments [...] race is not provided, and the patient isAfrican-Nigerien, multiply by 1.212. If sex is not provided, and thepatient is female, multiply by 0.742. Results for patients <18 years ofage have not been validated by the MDRD study and should be interpretedwith caution.eGFR Result Interpretation:eGFR > or=60 is in the Normal RangeeGFR < 60 may mean kidney diseaseeGFR < 15 may mean kidney failureRanges recommended by the National Kidney Foundation,http://nkdep.nih .gov CK [id number] 08:05:00 Test Item Value Reference Range Comments CK (test code=CK) 149 U/L 39-308 Troponin [id number] 08:02:00 Test Item Value Reference Range Comments Troponin T (test code=MADHAV) 0.114 ng/mL 0.000-0.090 Kbr-[id number] 08:02:00 Test Item Value Reference Range Comments NT ProBnp (test code=PBNP) >33251 pg/mL 0-124 CBC with [id number] 07:53:00 Test Item Value Reference Range Comments [...] Lymph Abs (test code=ALYMPH) 0.9 K/cumm 0.5-4.6 Beadle Abs (test code=AMONO) 0.4 K/cumm 0.0-1.2 Eos Abs (test code=AEOS) 0.11 K/cumm 0.00-0.74 Baso Abs (test code=ABASO) 0.0 K/cumm 0.00-0.21 XR CHEST 1 [id number] 21:38:09EXAM: CHEST ONE VIEWINDICATION: CoughCOMPARISON: October 06, 2017TECHNIQUE: AP view of the chest.FINDINGS: The cardiomediastinal silhouette is unchanged. Mild congestive changesbilaterally. No pneumothorax or pleural effusion is identified. Theosseous structures are unremarkable.IMPRESSION: Diffuse congestive changes bilaterally.LOCATION: R16US DUPLX EXT VEINS COMPR, [id number] 20:09:34AFTER HOURS SERVICE ON: 10/06/2017 8: 09 PMRIGHT Lower Extremity Venous Duplex Doppler ExaminationLocation Code E56Jueqojb: SwellingTechnique: Real-time castillo scale, Doppler spectral analysis [...] imaged vessels.AFTER HOURS SERVICE ON: 10/06/2017 8:09 [facility] Extremity Venous Duplex Doppler ExaminationLocation Code Y63Qvsxzsv : SwellingTechnique: Real-time castillo scale, Doppler spectral [...] of DVT in the imaged vessels.Comprehensive Metabolic [id number] 17 :40:00 Test Item Value Reference Range [...] race is not provided, and the patient isAfrican-Nigerien, multiply by 1.212. If sex is not [...] the National Kidney Foundation,http://nkdep.nih .gov CBC with [id number] 17:15:00 Test Item Value Reference Range Comments [...] Lymph Abs (test code=ALYMPH) 1.3 K/cumm 0.5-4.6 Beadle Abs (test code=AMONO) 0.6 K/cumm 0.0-1.2 Eos Abs (test code=AEOS) 0.12 K/cumm 0.00-0.74 Baso Abs (test code=ABASO) 0.0 K/cumm 0.00-0.21 XR CHEST 1 [id number] 16:56:42CHEST 1 VIEW: [id number]: coughCOMPARISON: Sep 24, 2017FINDINGS:The heart is enlarged. There is engorgement of the central pulmonaryvasculature. There are patchy bibasilar areas of infiltrate oratelectasis with bilateral effusions. No pneumothorax is present. IMPRESSION: 1. Patchy areas of atelectasis or infiltrate in the lung bases withsmall bilateral effusions and vascular congestion most likely secondaryto CHF.Culture, Blood [id number] 14:58:00Specimen: BloodCollected: 2017 13:05 Status: Final Last Updated: 09/29/2017 14:58 (1) ER Bed 1 Culture Result (Final) (Final) No Growth After 5 DaysCulture, Blood [id number] 14:58:00Specimen: BloodCollected: 09/24/2017 12:50 Status: Final Last Updated: 09/29/2017 14:58 (1) ER Bed 1 Culture Result (Final) (Final) No Growth After 5 DaysPOC Glucose, [id number] 10:54:00 Test Item Value Reference Range Comments POC Glucose (test 168 mg/dL 70-115 If you consider your patient code=POCGLUC) critically ill, the [facility] Accu-Chek InformII metershould not be used for Glucose determinations.Draw a venous Glucose and send to the Main Lab for Analysis. POC Glucose, [id number] 07:16:00 Test Item Value Reference Range Comments POC Glucose (test 143 mg/dL 70-115 If you consider your patient code=POCGLUC) critically ill, the [facility]eline Accu-Chek InformII metershould not be used for Glucose determinations.Draw a venous Glucose and send to the Main Lab for Analysis. CBC with [id number] 07:15:00 Test Item Value Reference Range Comments [...] Lymph Abs (test code=ALYMPH) 1.3 K/cumm 0.5-4.6 Beadle Abs (test code=AMONO) 0.7 K/cumm 0.0-1.2 Eos Abs (test code=AEOS) 0.07 K/cumm 0.00-0.74 Baso Abs (test code=ABASO) 0.0 K/cumm 0.00-0.21 Magnesium, [id number] 07:03:00 Test Item Value Reference Range Comments Magnesium (test code=MG) 2.0 mg/dL 1.7-2.5 Basic Metabolic [id number] 07:03:00 Test Item Value Reference Range Comments [...] race is not provided, and the patient isAfrican-Nigerien, multiply by 1.212. If sex is not [...] the National Kidney Foundation,http://nkdep.nih .gov POC Glucose, [id number] 21:40:00 Test Item Value Reference Range Comments POC Glucose (test 129 mg/dL 70-115 If you consider your patient code=POCGLUC) critically ill, the [facility]eline Accu-Chek InformII metershould not be used for Glucose determinations.Draw a venous Glucose and send to the Main Lab for Analysis. Hep B Surface [id number] 18:36:00 Test Item Value Reference Range Comments Hep Bs Ag (test code=HBSAG) Nonreactive Non-Reactive POC Glucose, [id number] 10:51:00 Test Item Value Reference Range Comments POC Glucose (test 216 mg/dL 70-115 If you consider your patient code=POCGLUC) critically ill, the Madeline Accu-Chek InformII metershould not be used for Glucose determinations.Draw a venous Glucose and send to the Main Lab for Analysis. POC Glucose, [id number] 07:57:00 Test Item Value Reference Range Comments POC Glucose (test 164 mg/dL 70-115 If you consider your patient code=POCGLUC) critically ill, the Madeline Accu-Chek InformII metershould not be used for Glucose determinations.Draw a venous Glucose and send to the Main Lab for Analysis. POC Glucose, [id number] 19:47:00 Test Item Value Reference Range Comments POC Glucose (test 140 mg/dL 70-115 Notify RN or MDIf you consider code=POCGLUC) your patient critically ill, the Madeline Accu-Chek InformII metershould not be used for Glucose determinations.Draw a venous Glucose and send to the Main Lab for Analysis. Troponin [id number] 19:36:00 Test Item Value Reference Range Comments Troponin T (test code=MADHAV) 0.121 ng/mL 0.000-0.090 CK [id number] 19:25:00 Test Item Value Reference Range Comments CK (test code=CK) 160 U/L 39-308 The value HIDE originally released by [employer] on 09/25/2017 19:12 waschanged to 160 [address] [facility] [facility] [facility] on 09/25/2017 19:24 CKMB (test code=CKMB) 3.0 ng/mL 0.0-4.9 CKMB% (test code=CKMBP) 1.9 % 0.0-3.4 The value HIDE originally released by [employer] on 09/25/2017 19:12 waschanged to 1.9 [address] [facility] [facility] on 09/25/2017 19:24 POC Glucose, [id number] 16:42:00 Test Item Value Reference Range Comments POC Glucose (test 123 mg/dL 70-115 If you consider your patient code=POCGLUC) critically ill, the Madeline Accu-Chek InformII metershould not be used for Glucose determinations.Draw a venous Glucose and send to the Main Lab for Analysis. POC Glucose, [id number] 12:09:00 Test Item Value Reference Range Comments POC Glucose (test 141 mg/dL 70-115 If you consider your patient code=POCGLUC) critically ill, the Madeline Accu-Chek InformII metershould not be used for Glucose determinations.Draw a venous Glucose and send to the Main Lab for Analysis. Hep B Surface [id number] 07:59:00 Test Item Value Reference Range Comments Hep Bs Ag (test code=HBSAG) Nonreactive Non-Reactive CK [id number] 07:43:00 Test Item Value Reference Range Comments CK (test code=CK) n/a U/L 39-308 CKMB (test code=CKMB) 2.4 ng/mL 0.0-4.9 CKMB% (test code=CKMBP) 0.0 % 0.0-3.4 Troponin [id number] 07:38:00 Test Item Value Reference Range Comments Troponin T (test code=MADHAV) 0.134 ng/mL 0.000-0.090 Thyroid Stimulating Hormone (TSH)2017-09-25 07:38:00 Test Item Value Reference Range Comments TSH (test code=TSH) 1.10 mIU/mL 0.270-4.200 [id number] 07:38:00 Test Item Value Reference Range Comments Phosphorus (test code=PO4) 3.4 mg/dL 2.70-4.50 Comprehensive Metabolic [id number] 07:38:00 Test Item Value Reference Range Comments [...] race is not provided, and the patient isAfrican-Nigerien, multiply by 1.212. If sex is not provided, and thepatient is female, multiply by 0.742. Results for patients <18 years ofage have not been validated by the MDRD study and should be interpretedwith caution.eGFR Result Interpretation:eGFR > or=60 is in the Normal RangeeGFR < 60 may mean kidney diseaseeGFR < 15 may mean kidney failureRanges recommended by the National Kidney Foundation,http://nkdep.nih .gov Magnesium, [id number] 07:38:00 Test Item Value Reference Range Comments Magnesium (test code=MG) 2.0 mg/dL 1.7-2.5 CK [id number] 07:31:00 Test Item Value Reference Range Comments CK (test code=CK) 159 U/L 39-308 Lipid [id number] 07:31:00 Test Item Value Reference Range Comments Cholesterol (test 118 mg/dL 0-200 code=CHOL) Triglycerides (test 170 mg/dL 9-200 code=TRIG) HDL (test code=HDL) 49 mg/dL 40-60 Chol/HDL (test 2.4 Ratio 0.0-5.0 code=CHOLPHDL) LDL, Calculated (test 35 0-130 (NOTE)RISK OF HEART code=LDLC) DISEASEPublished by Nigerien Heart AssociationAnalyte Optimal Boderline Increased RiskCHOL <200 200-239 >240TRIG <150 150-199 >200HDL Male: >60 <40HDL Female: >60 <50LDL <100 130-159 >160LDL NEAR OPTIMAL IS 100-129 VLDL (test code=VLDL) 34 mg/dL 5-40 LDL/HDL (test code=LDLPHDL) 1 Glycosylated [id number] 07:24:00 Test Item Value Reference Range Comments HBA1c (test code=HBA1C) 5.0 % 4.8-5.9 CBC with [id number] 07:20:00 Test Item Value Reference Range Comments [...] Lymph Abs (test code=ALYMPH) 0.8 K/cumm 0.5-4.6 Beadle Abs (test code=AMONO) 0.5 K/cumm 0.0-1.2 Eos Abs (test code=AEOS) 0.10 K/cumm 0.00-0.74 Baso Abs (test code=ABASO) 0.0 K/cumm 0.00-0.21 POC Glucose, [id number] 07:03:00 Test Item Value Reference Range Comments POC Glucose (test 147 mg/dL 70-115 If you consider your patient code=POCGLUC) critically ill, the Madeline Accu-Chek InformII metershould not be used for Glucose determinations.Draw a venous Glucose and send to the Main Lab for Analysis. POC Glucose, [id number] 22:05:00 Test Item Value Reference Range Comments POC Glucose (test 134 mg/dL 70-115 If you consider your patient code=POCGLUC) critically ill, the Madeline Accu-Chek InformII metershould not be used for Glucose determinations.Draw a venous Glucose and send to the Main Lab for Analysis. Blood Gas+Lytes+Glu+Ca+Hgb+Hct+[id number] 18:31:00 Test Item Value Reference Range Comments [...] Celcius code=PTTEMP) Comment (test code=COMMENT) alokrblvverqnscritvalDrnar [email or web address] Puncture Site (test code=PUNSITE) Radial. R Drawing Tech ID (test medel fi code=DRAWTECH) iPAP (test code=IPAP) 0 cmH2O Respiratory Rate (test code=RESP 0 RATE) Lactic Acid, Blood Gas (test 0.4 mmol/L code=BGLA) CT CHEST W/O [id number] 16:48:03CT CHEST W/O CONTRASTLOCATION CODE: R16 HISTORY: [...] bilateral axillary, prevascular, andparatracheal lymph nodes.Influenza B [id number] 14:36:00Specimen: NasalCollected: 09/24/2017 14:04 Status: Final Last [...] Culture of negative samples is recommended.Influenza A [id number] 14:34:00Specimen: NasalCollected: 09/24/2017 14:04 Status: Final Last [...] Culture of negative samples is recommended.Comprehensive Metabolic [id number] 13:54:00 Test Item Value Reference Range Comments [...] race is not provided, and the patient isAfrican-Nigerien, multiply by 1.212. If sex is not provided, and thepatient is female, multiply by 0.742. Results for patients <18 years ofage have not been validated by the MDRD study and should be interpretedwith caution.eGFR Result Interpretation:eGFR > or=60 is in the Normal RangeeGFR < 60 may mean kidney diseaseeGFR < 15 may mean kidney failureRanges recommended by the National Kidney Foundation,http://nkdep.nih .gov Troponin [id number] 13:54:00 Test Item Value Reference Range Comments Troponin T (test code=MADHAV) 0.124 ng/mL 0.000-0.090 Yzs-[id number] 13:54:00 Test Item Value Reference Range Comments NT ProBnp (test code=PBNP) >67696 pg/mL 0-124 CK [id number] 13:54:00 Test Item Value Reference Range Comments CK (test code=CK) 222 U/L 39-308 CKMB (test code=CKMB) 3.1 ng/mL 0.0-4.9 CKMB% (test code=CKMBP) 1.4 % 0.0-3.4 CK [id number] 13:54:00 Test Item Value Reference Range Comments CK (test code=CK) 222 U/L 39-308 Partial Thromboplastin [id number] 13:43:00 Test Item Value Reference Range Comments aPTT (test code=PTT) 35.70 seconds 24.39-37.25 Prothrombin [id number] 13:43:00 Test Item Value Reference Range Comments PT (test code=PT) 11.30 seconds 9.78-13.35 INR (test code=INR) 0.99 Ratio 0.6-1.2 Lactic Acid [id number] 13:41:00 Test Item Value Reference Range Comments Lactic Acid, Bld (test code=LAC) 1.3 mmol/L 0.5-1.9 CBC with [id number] 13:32:00 Test Item Value Reference Range Comments [...] Lymph Abs (test code=ALYMPH) 1.2 K/cumm 0.5-4.6 Beadle Abs (test code=AMONO) 0.6 K/cumm 0.0-1.2 Eos Abs (test code=AEOS) 0.23 K/cumm 0.00-0.74 Baso Abs (test code=ABASO) 0.0 K/cumm 0.00-0.21 XR CHEST 1 [id number] 12:50:14XR CHEST 1 VIEWLOCATION: [id number]: None.INDICATION: CoughDISCUSSION:A single portable chest radiograph was [...]
--- OUTSIDE RECORDS SUMMARY | 2018-09-20 15:11 | XMS REPORT ---
:1955 Author Organization [facility] Address Unavailable , Allergies, Adverse [...] Patient Date Date Name Instruction AMLODIPINE AMLODIPINE 91104749345 Active Mo Active BESYLATE 10 MG BESYLATE Dicks OD ORAL TABLET CALCIUM ACETATE CALCIUM ACETATE 05175394280 Active Om Active (PHOS BINDER) (PHOS BINDER) Dicks OD 667 MG ORAL CAPSULE CRESTOR 5 MG ROSUVASTATIN 68510673263 Active Mo Active ORAL TABLET CALCIUM Dicks OD EPIVIR SOLUTION LAMIVUDINE SOLN 95230290035 Active Mo Active Dicks OD ISENTRESS RALTEGRAVIR 04376142232 Active Mo Active TABLET POTASSIUM TABS Dicks OD KALETRA TABLET LOPINAVIR-RITONAVI 12721564603 Active Mo Active R TABS Dicks OD LAMIVUDINE LAMIVUDINE TABS 13764396187 Active Mo Active TABLET Dicks OD PROAIR HFA ALBUTEROL SULFATE 90167331627 Active Mo Active AEROSOL AERS Dicks OD SOLUTION PEDRO-EAMON RX B-COMPLEX W/ C & 51936879989 Active Mo Active TABLET FOLIC ACID TABS Dicks OD VITAMIN D2 ERGOCALCIFEROL 68542827517 Active Mo Active TABLET TABS Dicks OD Diagnostic Results Date Name Value Unit Range Description Append: Eye Exam - Hematology T-helper cells (CD4) count 602 uL Append: Eye Exam - Serology HIV-1RNA, serum, by PCR, quantitative 20 {Copies}/mL Procedures Code Procedure Name Date Entry Date Standard Description CPT-03978 Dispensing Visit (UNLIVSTED OPHTHALMOLOGICAL 10:14:39 CDT SERVICE/PROCEDURE) CPT-03692 Est Patient Comprehensive Opt - 46965 15:29:32 CDT CPT-58103 New Patient Intermediate Opt - 19524 14:28:41 CDT
[2018-09-20] MEDS ORDERED: ACETAMINOPHEN 500 MG TAB ONE (15:37)
[2018-09-20] MEDS ORDERED: CEFTRIAXONE/SWI 1gm 1 GM/10 ML SYR ONE (15:56)
[2018-09-20] MEDS ORDERED: OSELTAMIVIR 75 MG CAP ONE (15:56)
[2018-09-20] MEDS ORDERED: IPRATROPIUM BROM 0.5MG/2.5ML ONE (15:56)
[2018-09-20] MEDS ORDERED: METHYLPREDNISOLONE 125 MG INJ ONE (15:56)
[2018-09-20] MEDS ORDERED: LEVALBUTEROL 1.25 MG/3 ML NEB ONE ×2 (15:56→17:43)
[2018-09-20] MEDS ORDERED: AZITHROMYCIN 500 MG/250 ML BAG ONE (15:57)
[2018-09-20 16:17] LABS: Absolute Lymphocytes (CBC) 0.8 K/uL (0.7-4.9); Absolute Monocytes 1.1 K/uL (0.1-1.3); Absolute Neutrophil 4.4 K/uL (1.8-8.0); Basophils % 0.5 % (0-1.3); Eosinophils % 1.5 % (0-4.4); Hematocrit 33.4 % (39.6-49.0); Lymphocytes % 12.6 % (15.3-44.8); MPV 7.3 fL (7.6-11.3); Monocytes % 17.3 % (3.3-12.3); Protime INR 1.72
[2018-09-20 16:49] LABS: Blood Morphology Comment NOTED (NOT SEEN); Hypochromasia 1+; Platelet Estimate ADEQ; Stomatocytes 1+
--- NOTE | 2018-09-20 16:49 | RAD REPORT ---
EXAM DESCRIPTION: Segun Single View09/20/2018 4:17 pm CLINICAL HISTORY: cough COMPARISON: August 2018 FINDINGS: Moderate right pleural effusion is present with right basilar atelectasis. Left lung appears clear of acute infiltrate. Heart is mildly to moderately enlarged. Postsurgical changes involve the chest
[2018-09-20 16:58] LABS: Bilirubin Direct 0.6 mg/dL (0-0.2); Bilirubin Total 1.2 mg/dL (0.2-1.0); Magnesium 1.9 mg/dL (1.8-2.4); Potassium 3.5 mmol/L (3.5-5.1); Protein, Total 8.6 g/dL (6.4-8.2); Troponin (Emerg Dept Use Only) 0.02 ng/mL (0.0-0.045)
--- NOTE | 2018-09-20 17:00 | ER ---
Nurse's Notes [facility] Name: Salvatore Goldman Age: 63 yrs Sex: Male : 1955 Arrival Date: 09/20/2018 Time: 15:10 Bed 30 Private MD: Diagnosis: Fever, unspecified;Pleural effusion in conditions classified elsewhere;Human immunodeficiency virus [HIV] disease;Type 2 diabetes mellitus;End stage renal disease;Anemia, unspecified;Unspecified cirrhosis of liver Presentation: 09/20 15:15 Presenting complaint: Patient states: I have had a cough for 4 days and today at [facility] dialysis they told me they heard a rumble in my chest. Transition of care: patient was not received from another setting of care. Resp Distress? No respiratory distress is noted at this time. Onset of symptoms was September 20, 2018. Risk Assessment: Do you want to hurt yourself or someone else? Patient reports no desire to harm self or others. Initial Sepsis Screen: Does the patient meet any 2 criteria? Temp <36.0*C (96.8*F)) or > 38.3*C (100.9*F). Does the patient have a suspected source of infection? Yes: Productive cough/pneumonia. Care prior to arrival: None. 15:15 Method Of Arrival: Wheelchair la1 15:15 Acuity: NARDA 3 la1 Historical: - Allergies: 15:16 codeine sulfate; la1 - Home Meds: 15:36 aspirin 81 mg Oral chew 1 tab once daily [Active]; atorvastatin 20 mg Oral tab 1 tab mg2 once daily [Active]; docusate sodium 100 mg Oral tab 1 tab 2 times per day [Active]; Isentress 400 mg Oral tab 1 tab 2 times per day [Active]; Kaletra 200-50 mg Oral tab 2 tabs 2 times per day [Active]; lamivudine 10 mg/mL Oral soln 2.5 mL once daily [Active]; metoprolol tartrate 25 mg Oral tab 1 tab once daily [Active]; Vitamin [place] 53418 unit WEEKLY [Active]; warfarin 5 mg Oral tab 1 tab once daily [Active]; - PMHx: 15:16 Cirrhosis; Diabetes - NIDDM; Dialysis; heart valve; Hepatitis; HIV; Hyperlipidemia; la1 Karposi Sarcoma (left leg); kidney failure; - Immunization history:: Adult Immunizations up to date. - Social history:: Smoking status: Patient/guardian denies using tobacco. - Ebola Screening: : No symptoms or risks identified at this time. - Family history:: not pertinent. Screenin:34 Abuse screen: Denies threats or abuse. Denies injuries from another. Abuse screen:. mg2 Nutritional screening: No deficits noted. Tuberculosis screening: No symptoms or risk factors identified. Fall Risk None identified. Assessment: 15:32 General: Appears in no apparent distress. comfortable, Behavior is calm, cooperative. mg2 Pain: Complains of pain in chest Pain does not radiate. Pain currently is 2 out of 10 on a pain scale. Quality of pain is described as aching, Pain began gradually, 2-3 days ago. Is intermittent. Neuro: Level of Consciousness is awake, alert, obeys commands, Oriented to person, place, time, situation. Cardiovascular: Capillary refill < 3 seconds Patient's skin is warm and dry. Respiratory: Airway is patent Respiratory effort is even, unlabored, Respiratory pattern is regular, symmetrical, Breath sounds with wheezes in left upper lobe. Respiratory: Reports cough that is productive, since 4 days congestion. GI: No signs and/or symptoms were reported involving the gastrointestinal system. : No signs and/or symptoms were reported regarding the genitourinary system. EENT: No signs and/or symptoms were reported regarding the EENT system. Derm: Skin is intact, is healthy with good turgor, Skin is pink, warm \T\ dry. normal. Musculoskeletal: No signs and/or symptoms reported regarding the musculoskeletal system. 17:20 Reassessment: dr Carr informed the patient about the need for admission, patient mg2 agreed. 17:36 Reassessment: incentive spirometry- 1000ml. mg2 Vital Signs: 15:16 BP 152 / 84; Pulse 91; Resp 18; Temp 101.1(O); Pulse Ox 96% on R/A; Weight 72.57 kg; la1 Height 5 ft. 7 in. (170.18 cm); 16:19 BP 151 / 87; Pulse 86; Resp 18; Pulse Ox 98% on R/A; Pain 0/10; mg2 16:39 BP 162 / 71; Pulse 88; Resp 18; Temp 99.4(O); Pulse Ox 96% on R/A; Pain 0/10; mg2 17:42 BP 165 / 97; Pulse 85; Resp 18; Temp 99.5(O); Pulse Ox 100% on Nebulizer Mask; Pain mg2 0/10; 19:22 BP 163 / 93; Pulse 84; Resp 18; Temp 99.5; Pulse Ox 97% on R/A; Pain 0/10; mg2 15:16 Body Mass Index 25.06 (72.57 kg, 170.18 cm) la1 ED Course: 15:10 Patient arrived in ED. rg4 15:16 Triage completed. la1 15:17 Arm band placed on right wrist. la1 15:18 Boston Johnson MD is Attending Physician. beny 15:19 Young Toscano, LAURYN is Primary Nurse. mg2 15:35 No provider procedures requiring assistance completed. mg2 15:37 Patient has correct armband on for positive identification. mg2 16:18 Inserted saline lock: 20 gauge in right forearm, using aseptic technique. Blood mg2 collected. 16:21 XRAY Chest (1 view) In Process Unspecified. EDMS 16:57 Scout Carr DO is Hospitalizing Provider. beny 17:35 Door closed. mg2 17:43 Patient admitted, IV remains in place. mg2 Administered Medications: 15:28 Drug: Tylenol 1000 mg Route: PO; mg2 16:53 Follow up: Response: No adverse reaction; Temperature is decreased mg2 16:16 Drug: Tamiflu 75 mg Route: PO; mg2 17:31 Follow up: Response: No adverse reaction; Marked relief of symptoms mg2 16:17 Drug: Rocephin - (cefTRIAXone) 1 grams Route: IVPB; Infused Over: 30 mins; Site: right mg2 forearm; 17:31 Follow up: Response: No adverse reaction; IV Status: Completed infusion mg2 16:17 Drug: Zithromax 500 mg Route: IVPB; Infused Over: 1 hrs; Site: right forearm; mg2 17:31 Follow up: Response: No adverse reaction; IV Status: Completed infusion mg2 16:17 Drug: Xopenex 1.25 mg Route: Inhalation; mg2 17:32 Follow up: Response: No adverse reaction mg2 16:17 Drug: AtroVENT Aerosol 0.5 mg Route: Inhalation; mg2 17:32 Follow up: Response: No adverse reaction mg2 16:17 Drug: SOLU-Medrol 125 mg Route: IVP; Site: right forearm; mg2 17:31 Follow up: Response: No adverse reaction; Marked relief of symptoms mg2 17:30 Drug: vancoMYCIN 1 grams Route: IVPB; Infused Over: 2 hrs; Site: right forearm; mg2 19:23 Follow up: Response: No adverse reaction; IV Status: Completed infusion mg2 17:30 Drug: Xopenex 1.25 mg Route: Inhalation; mg2 19:24 Follow up: Response: No adverse reaction mg2 Outcome: 16:59 Decision to Hospitalize by Provider. beny 19:23 Admitted to Med/surg accompanied by tech, via wheelchair, room 211, with chart, Report mg2 called to LAURYN Mckenzie 19:23 Condition: stable 19:23 Instructed on the need for admit, Demonstrated understanding of instructions. 19:33 Patient left the ED. mg2 Signatures: Dispatcher [employer] EDBoston Morgan MD MD cha Attema, Lee, RN RN Carley Briggs4 Young Toscano RN RN mg2
--- NOTE | 2018-09-20 17:00 | EDPHYS ---
Physician Documentation [facility] Name: Salvatore Goldman Age: 63 yrs Sex: Male : 1955 Arrival Date: 09/20/2018 Time: 15:10 Bed 30 Private MD: ED Physician Boston Johnson HPI: 09/20 15:43 This 63 yrs old Black Male presents to ER via Wheelchair with complaints of Chills, beny Congestion. 15:43 The patient has shortness of breath at rest, with light activity. Onset: The beny symptoms/episode began/occurred 4 day(s) ago. Duration: The symptoms are continuous, and are steadily getting worse. The patient's shortness of breath is aggravated by coughing, is alleviated by elevating head. The patient or guardian reports cough, described as mild, described as moderate, difficulty breathing, flu symptoms, arthralgias, low-grade fever, myalgias. Modifying factors: The symptoms are alleviated by nothing. the symptoms are aggravated by activity. Severity of symptoms: At their worst the symptoms were mild moderate in the emergency department the symptoms are unchanged. Historical: - Allergies: 15:16 codeine sulfate; la1 - Home Meds: 15:36 aspirin 81 mg Oral chew 1 tab once daily [Active]; atorvastatin 20 mg Oral tab 1 tab mg2 once daily [Active]; docusate sodium 100 mg Oral tab 1 tab 2 times per day [Active]; Isentress 400 mg Oral tab 1 tab 2 times per day [Active]; Kaletra 200-50 mg Oral tab 2 tabs 2 times per day [Active]; lamivudine 10 mg/mL Oral soln 2.5 mL once daily [Active]; metoprolol tartrate 25 mg Oral tab 1 tab once daily [Active]; Vitamin D Oral 36932 unit WEEKLY [Active]; warfarin 5 mg Oral tab 1 tab once daily [Active]; - PMHx: 15:16 Cirrhosis; Diabetes - NIDDM; Dialysis; heart valve; Hepatitis; HIV; Hyperlipidemia; la1 Karposi Sarcoma (left leg); kidney failure; - Immunization history:: Adult Immunizations up to date. - Social history:: Smoking status: Patient/guardian denies using tobacco. - Ebola Screening: : No symptoms or risks identified at this time. - Family history:: not pertinent. ROS: 15:43 Constitutional: Negative for fever, chills, and weight loss, Eyes: Negative for injury, beny pain, redness, and discharge, ENT: Negative for injury, pain, and discharge, Neck: Negative for injury, pain, and swelling, Cardiovascular: Negative for chest pain, palpitations, and edema, Abdomen/GI: Negative for abdominal pain, nausea, vomiting, diarrhea, and constipation, Back: Negative for injury and pain, : Negative for injury, bleeding, discharge, and swelling, MS/Extremity: Negative for injury and deformity, Skin: Negative for injury, rash, and discoloration, Neuro: Negative for headache, weakness, numbness, tingling, and seizure, Psych: Negative for depression, anxiety, suicide ideation, homicidal ideation, and hallucinations, Allergy/Immunology: Negative for hives, rash, and allergies, Endocrine: Negative for neck swelling, polydipsia, polyuria, polyphagia, and marked weight changes, Hematologic/Lymphatic: Negative for swollen nodes, abnormal bleeding, and unusual bruising. 15:43 Respiratory: Positive for cough, wheezing, inspiratory, expiratory. Exam: 15:43 Constitutional: This is a well developed, well nourished patient who is awake, alert, beny and in no acute distress. Head/Face: Normocephalic, atraumatic. Eyes: Pupils equal round and reactive to light, extra-ocular motions intact. Lids and lashes normal. Conjunctiva and sclera are non-icteric and not injected. Cornea within normal limits. Periorbital areas with no swelling, redness, or edema. ENT: Nares patent. No nasal discharge, no septal abnormalities noted. Tympanic membranes are normal and external auditory canals are clear. Oropharynx with no redness, swelling, or masses, exudates, or evidence of obstruction, uvula midline. Mucous membranes moist. Neck: Trachea midline, no thyromegaly or masses palpated, and no cervical lymphadenopathy. Supple, full range of motion without nuchal rigidity, or vertebral point tenderness. No Meningismus. Chest/axilla: Normal chest wall appearance and motion. Nontender with no deformity. No lesions are appreciated. Cardiovascular: Regular rate and rhythm with a normal S1 and S2. No gallops, murmurs, or rubs. Normal PMI, no JVD. No pulse deficits. Abdomen/GI: Soft, non-tender, with normal bowel sounds. No distension or tympany. No guarding or rebound. No evidence of tenderness throughout. Back: No spinal tenderness. No costovertebral tenderness. Full range of motion. Skin: Warm, dry with normal turgor. Normal color with no rashes, no lesions, and no evidence of cellulitis. MS/ Extremity: Pulses equal, no cyanosis. Neurovascular intact. Full, normal range of motion. Neuro: Awake and alert, GCS 15, oriented to person, place, time, and situation. Cranial nerves II-XII grossly intact. Motor strength 5/5 in all extremities. Sensory grossly intact. Cerebellar exam normal. Normal gait. Psych: Awake, alert, with orientation to person, place and time. Behavior, mood, and affect are within normal limits. 15:43 Respiratory: mild respiratory distress is noted, Respirations: labored breathing, that is mild, Breath sounds: bronchial sounds, rhonchi, + upper airway congestion. wheezing: expiratory 15:43 Abdomen/GI: Exam negative for acute changes. Vital Signs: 15:16 BP 152 / 84; Pulse 91; Resp 18; Temp 101.1(O); Pulse Ox 96% on R/A; Weight 72.57 kg; la1 Height 5 ft. 7 in. (170.18 cm); 16:19 BP 151 / 87; Pulse 86; Resp 18; Pulse Ox 98% on R/A; Pain 0/10; mg2 16:39 BP 162 / 71; Pulse 88; Resp 18; Temp 99.4(O); Pulse Ox 96% on R/A; Pain 0/10; mg2 17:42 BP 165 / 97; Pulse 85; Resp 18; Temp 99.5(O); Pulse Ox 100% on Nebulizer Mask; Pain mg2 0/10; 19:22 BP 163 / 93; Pulse 84; Resp 18; Temp 99.5; Pulse Ox 97% on R/A; Pain 0/10; mg2 15:16 Body Mass Index 25.06 (72.57 kg, 170.18 cm) la1 MDM: 15:18 Patient medically screened. [facility] 15:45 Data reviewed: vital signs, nurses notes, lab test result(s), EKG, radiologic studies, beny plain films. 09/20 15:40 Order name: Basic Metabolic Panel; Complete Time: 16:59 [facility] 09/20 15:40 Order name: CBC with Diff; Complete Time: 16:56 [facility] 09/20 15:40 Order name: LFT's; Complete Time: 16:59 [facility] 09/20 15:40 Order name: Magnesium; Complete Time: 16:59 [facility] 09/20 15:40 Order name: NT PRO-BNP; Complete Time: 16:59 [facility] 09/20 15:40 Order name: PT-INR; Complete Time: 16:22 [facility] 09/20 15:40 Order name: Troponin (emerg Dept Use Only); Complete Time: 16:59 [facility] 09/20 15:40 Order name: XRAY Chest (1 view); Complete Time: 16:56 [facility] 09/20 15:40 Order name: Blood Culture Adult (2) [facility] 09/20 15:40 Order name: Procalcitonin [facility] 09/20 15:40 Order name: Lactate; Complete Time: 16:45 [facility] 09/20 15:40 Order name: Urine Culture [facility] 09/20 15:42 Order name: Flu; Complete Time: 16:45 [facility] 09/20 16:23 Order name: Manual Differential; Complete Time: 16:56 [facility]OR 09/20 15:40 Order name: EKG; Complete Time: 15:42 [facility] 09/20 15:40 Order name: Cardiac monitoring; Complete Time: 16:18 [facility] 09/20 15:40 Order name: EKG - Nurse/Tech; Complete Time: 16:18 [facility] 09/20 15:40 Order name: IV Saline Lock; Complete Time: 16:18 [facility] 09/20 15:40 Order name: Labs collected and sent; Complete Time: 16:18 [facility] 09/20 15:40 Order name: O2 Per Protocol; Complete Time: 16:18 [facility] 09/20 16:56 Order name: INCENTIVE SPIROMETRY [facility] 09/20 15:40 Order name: O2 Sat Monitoring; Complete Time: 16:18 [facility] Administered Medications: 15:28 Drug: Tylenol 1000 mg Route: PO; mg2 16:53 Follow up: Response: No adverse reaction; Temperature is decreased mg2 16:16 Drug: Tamiflu 75 mg Route: PO; mg2 17:31 Follow up: Response: No adverse reaction; Marked relief of symptoms mg2 16:17 Drug: Rocephin - (cefTRIAXone) 1 grams Route: IVPB; Infused Over: 30 mins; Site: right mg2 forearm; 17:31 Follow up: Response: No adverse reaction; IV Status: Completed infusion mg2 16:17 Drug: Zithromax 500 mg Route: IVPB; Infused Over: 1 hrs; Site: right forearm; mg2 17:31 Follow up: Response: No adverse reaction; IV Status: Completed infusion mg2 16:17 Drug: Xopenex 1.25 mg Route: Inhalation; mg2 17:32 Follow up: Response: No adverse reaction mg2 16:17 Drug: AtroVENT Aerosol 0.5 mg Route: Inhalation; mg2 17:32 Follow up: Response: No adverse reaction mg2 16:17 Drug: SOLU-Medrol 125 mg Route: IVP; Site: right forearm; mg2 17:31 Follow up: Response: No adverse reaction; Marked relief of symptoms mg2 17:30 Drug: vancoMYCIN 1 grams Route: IVPB; Infused Over: 2 hrs; Site: right forearm; mg2 19:23 Follow up: Response: No adverse reaction; IV Status: Completed infusion mg2 17:30 Drug: Xopenex 1.25 mg Route: Inhalation; mg2 19:24 Follow up: Response: No adverse reaction mg2 Disposition: 09/20/18 16:59 Hospitalization ordered by Scout Carr for Inpatient Admission. Preliminary diagnosis are Fever, unspecified, Pleural effusion in conditions classified elsewhere, Human immunodeficiency virus [HIV] disease, Type 2 diabetes mellitus, End stage renal disease, Anemia, unspecified, Unspecified cirrhosis of liver. - Bed requested for Telemetry/MedSurg (Inpatient). - Status is Inpatient Admission. mg2 - Condition is Fair. - Problem is new. - Symptoms have improved. UTI on Admission? No Signatures: Dispatcher [employer] EDOR Boston Johnson MD MD cha Attema, Lee RN RN la1 Amanda Sinha Michele, RN RN mg2 Corrections: (The following items were deleted from the chart) 16:59 16:59 Hospitalization Ordered by Scout Carr DO for Inpatient Admission. Preliminary beny diagnosis is Fever, unspecified; Pleural effusion in conditions classified elsewhere; Human immunodeficiency virus [HIV] disease; Type 2 diabetes mellitus; End stage renal disease. Bed requested for Telemetry/MedSurg (Inpatient). Status is Inpatient Admission. Condition is Fair. Problem is new. Symptoms have improved. UTI on Admission? No. beny 17:04 16:59 09/20/2018 16:59 Hospitalization Ordered by Scout Carr DO for Inpatient beny Admission. Preliminary diagnosis is Fever, unspecified; Pleural effusion in conditions classified elsewhere; Human immunodeficiency virus [HIV] disease; Type 2 diabetes mellitus; End stage renal disease; Anemia, unspecified. Bed requested for Telemetry/MedSurg (Inpatient). Status is Inpatient Admission. Condition is Fair. Problem is new. Symptoms have improved. UTI on Admission? No. beny 17:42 17:04 09/20/2018 16:59 Hospitalization Ordered by Scout Crar DO for Inpatient eb Admission. Preliminary diagnosis is Fever, unspecified; Pleural effusion in conditions classified elsewhere; Human immunodeficiency virus [HIV] disease; Type 2 diabetes mellitus; End stage renal disease; Anemia, unspecified; Unspecified cirrhosis of liver. Bed requested for Telemetry/MedSurg (Inpatient). Status is Inpatient Admission. Condition is Fair. Problem is new. Symptoms have improved. UTI on Admission? No. beny 19:33 17:42 09/20/2018 16:59 Hospitalization Ordered by Scout Carr DO for Inpatient mg2 Admission. Preliminary diagnosis is Fever, unspecified; Pleural effusion in conditions classified elsewhere; Human immunodeficiency virus [HIV] disease; Type 2 diabetes mellitus; End stage renal disease; Anemia, unspecified; Unspecified cirrhosis of liver. Bed requested for Telemetry/MedSurg (Inpatient). Status is Inpatient Admission. Condition is Fair. Problem is new. Symptoms have improved. UTI on Admission? No. eb
[2018-09-20] MEDS ORDERED: VANCOMYCIN 1 GM/250 ML BAG ONE (17:11)
--- NOTE | 2018-09-20 17:38 | P.HP ---
Certification for Inpatient Patient admitted to: Observation With expected LOS: <2 Midnights Patient will require the following post-hospital care: None Practitioner: I am a practitioner with admitting privileges, knowledge of patient current condition, hospital course, and medical plan of care. Services: Services provided to patient in accordance with Admission requirements found in Title 42 Section 412.3 of the Code of Federal Regulations Patient History Date of Service: 09/20/18 Primary Care Provider: HIV clinic in [place]: Nephrology-Dr. Washburn Reason for admission: Cough History of Present Illness: 63-year-old male presented to the emergency room with cough x4 days. Patient was at dialysis today. He was sent over for further evaluation. Patient denied any fever, shortness of breath, chest pain. He reports no sick contacts. Patient with underlying end-stage renal disease on dialysis, HIV, hypertension and chronic anti coagulation therapy due to heart valve replacement. In the ER patient was evaluated. He was found to have elevated temperature 101.1 repeat shows improvement. White count 6.4, pro calciton[place] [address]. Hemoglobin 11.3. GFR of 20. Chest x-ray shows moderate right pleural effusion with right by basilar atelectasis. This appears improved since last CT scan done in August. He reports that he was in [place] last month for thoracentesis. The patient will be admitted for further evaluation. When I saw the patient ER , he appeared comfortable. He reported improvement with breathing treatment. Significant other at bedside. Allergies codeine Allergy (Verified 05/17/18 03:42) Itching Home medications list reviewed: Yes Home Medications: Lamivudine [Epivir] 2.5 ml PO BID 02/18/18 Atorvastatin Calcium [Lipitor] 20 mg PO BEDTIME 05/17/18 Cholecalciferol (Vitamin D3) [Vitamin D3] 50,000 units PO EVERY 7TH DAY Lopinavir/Ritonavir [Kaletra 200-50 MG Tablet*] 2 tab PO BID 05/17/18 Metoprolol Succinate [Toprol Xl] 25 mg PO DAILY 05/17/18 Raltegravir Potassium [Isentress*] 400 mg PO BID 05/17/18 Warfarin Sodium [Coumadin*] 12.5 mg PO DAILY 5 PM 05/17/18 Aspirin Chewable [Aspirin Chewable*] 81 mg PO DAILY 09/16/18 Docusate Sodium [Dok] 100 mg PO BID 05/18/18 Folic Acid/Vit Bcomp,C [Daija-Kodak Tablet] 1 tab PO DAILY 05/18/18 - Past Medical/Surgical History Diabetic: Yes -: HIV-AIDS -: Hepatitis C -: DM -: HTN -: [place] [facility] -: Previous heart valve replacement on chronic anti coagulation therapy -: Cirrhosis -: ESRD on HD -: AV fistula to the LUE -: Mitral Valve Replacement, mechanical Psychosocial/ Personal History: He has been with his current partner for years, 7-children, Disabled. - Family History Father -: Diabetes, Other (see notes) Notes: bilateral amputee, gout Mother -: Heart disease, Hypertension, Stroke - Social History Smoking Status: Never smoker Alcohol use: No CD- Drugs: No Caffeine use: Yes Place of Residence: Home Review of Systems General: As per HPI Eyes: Unremarkable ENT: Unremarkable Respiratory: Cough, As per HPI Cardiovascular: Unremarkable Gastrointestinal: Unremarkable Genitourinary: Unremarkable Musculoskeletal: Unremarkable Integumentary: Unremarkable Neurological: Unremarkable Lymphatics: Unremarkable Physical Examination - Physical Exam General: Alert, In no apparent distress, Oriented x3, Cooperative HEENT: Atraumatic, Normocephalic, Mucous membr. moist/pink Neck: Supple Respiratory: Diminished (To the right side), Crackles/rales (Right side) Cardiovascular: Normal pulses, Regular rate/rhythm Gastrointestinal: Normal bowel sounds, Soft and benign, Non-distended, No tenderness, No masses, No rebound, No guarding Musculoskeletal: No erythema, No tenderness, No warmth Integumentary: No tenderness/swelling, No erythema, No warmth, No cyanosis Neurological: Normal speech, Normal strength at 5/5 x4 extr, Normal tone, Normal affect Lymphatics: No axilla or inguinal lymphadenopathy - Studies Laboratory Data (last 24 hrs) 09/20/18 15:45: PT 20.4 H, INR 1.72 09/20/18 15:45: WBC 6.4, Hgb 11.3 L, Hct 33.4 L, Plt Count 133 L 09/20/18 15:45: Sodium 134 L, Potassium 3.5, BUN 17, Creatinine 3.78 H, Glucose 81, Magnesium 1.9, Total Bilirubin 1.2 H, AST 42 H, ALT 36, Alkaline Phosphatase 86 Microbiology Data (last 24 hrs): 09/20/18 15:45 Nasopharnyx Influenza Type A Antigen Screen - Final 09/20/18 15:45 Nasopharnyx Influenza Type B Antigen Screen - Final Assessment and Plan - Plan Impression: Cough with fever secondary to Moderate right pleural effusion with right basilar atelectasis End-stage renal disease on hemodialysis Hypertension HIV Cirrhosis with history of hepatitis-C Mitral valve replacement on chronic anti coagulation therapy Plan: Cough with fever secondary to Moderate right pleural effusion with right basilar atelectasis: Patient will be admitted for further evaluation. Patient does not appear septic. Pro calcitonin and white count unremarkable. Will recheck CBC in the morning. Will also recheck CBC. Will hold off on antibiotic therapy at this time. Will discuss with pulmonology. If fever persists will need to consider starting medication. Patient appears to have chronic right pleural effusion. This appears improved since last CT scan done last month. Patient reports history of thoracentesis done in [place]. Will try to obtain previous information and biopsy report of thoracentesis. Will continue with a 1500 cc per day fluid restriction. Will maintain sats above 90% . Wean off oxygen. End-stage renal disease on hemodialysis: Patient received dialysis today. Patient on dialysis every Saturday, and Saturdays. Nephrology consulted to further address. Hypertension: Continue with his home medication HIV: Will need to obtain and restart home medication. Cirrhosis with history of hepatitis-C: Monitor weight closely. Patient on fluid restriction. Mitral valve replacement on chronic anti coagulation therapy: Continue with Coumadin. Maintain INR between 2 and 3. Discharge Plan: Home Plan to discharge in: 24 Hours - Advance Directives Does patient have a Living Will: No Does patient have a Durable POA for Healthcare: No - Code Status/Comfort Care Code Status Assessed: Yes (Patient full code.) Time Spent Managing Pts Care (In Minutes): 55
[2018-09-20 19:38] VITALS: BMI 23.3
[2018-09-20] MEDS ORDERED: ACETAMINOPHEN 500 MG TAB PO PRN (19:46)
[2018-09-20] MEDS ORDERED: ONDANSETRON 4 MG/2 ML VIAL IV PRN (19:46)
[2018-09-20] MEDS ORDERED: BENZONATATE 100 MG CAP PO PRN (19:46)
[2018-09-20] MEDS ORDERED: ALBUTEROL 2.5 MG/3 ML NEB SOL NEB PRN (19:46)
[2018-09-20] MEDS ORDERED: IPRATROPIUM BROM 0.5MG/2.5ML NEB PRN (19:46)
[2018-09-20] MEDS ORDERED: ATORVASTATIN 20 MG TAB PO SCH (21:00)
[2018-09-21 05:38] LABS: Absolute Lymphocytes (CBC) 0.3 K/uL (0.7-4.9); Absolute Monocytes 0.2 K/uL (0.1-1.3); Absolute Neutrophil 3.4 K/uL (1.8-8.0); Basophils % 0.2 % (0-1.3); Hematocrit 34.4 % (39.6-49.0); Lymphocytes % 7.9 % (15.3-44.8); MPV 7.4 fL (7.6-11.3); Monocytes % 4.4 % (3.3-12.3); RBC Red Blood Cell Count 3.58 M/uL (4.33-5.43)
[2018-09-21 05:43] LABS: Protime INR 1.53
[2018-09-21 05:52] LABS: Albumin 2.9 g/dL (3.4-5.0); Bilirubin Total 0.8 mg/dL (0.2-1.0); Magnesium 2.1 mg/dL (1.8-2.4); Potassium 3.5 mmol/L (3.5-5.1); Protein, Total 8.6 g/dL (6.4-8.2)
[2018-09-21 05:58] VITALS: TEMP 97.9
[2018-09-21] MEDS ORDERED: METOPROLOL TAR 25 MG TAB PO SCH (06:00)
[2018-09-21 06:25] VITALS: O2SAT 97
--- NOTE | 2018-09-21 07:49 | RAD REPORT ---
EXAM DESCRIPTION: RAD - Chest Pa And Lat (2 Views) - 09/21/2018 6:27 am CLINICAL HISTORY: Pleural effusion, atelectasis COMPARISON: September 20 TECHNIQUE: PA and lateral views of the chest were obtained. FINDINGS: The lungs are normal volume. Moderate sized right pleural effusion smaller left pleural ef fusion still evident. Interstitial markings remain prominent. Cardiomegaly is stable. No new or pro gressive vascular engorgement. No pneumothorax. No focal consolidation. Fullness along the right hear t border and right infrahilar region has not changed. This is probably the affects of vascular and at electasis summation artifact. No acute bony finding noted. No aortic abnormality. IMPRESSION: Predominantly right-side pleural and parenchymal opacification not significantly differe nt from prior day study.
[2018-09-21] MEDS ORDERED: ASPIRIN EC 81 MG TAB PO SCH (09:00)
--- NOTE | 2018-09-21 09:37 | P.DS ---
Admission Date: 09/20/18 Discharge Date: 09/21/18 Primary Care Provider: HIV clinic in [place]: Nephrology-Dr. Washburn Disposition: ROUTINE DISCHARGE Discharge Condition: GOOD Reason for Admission: Cough Consultations: Nephrology-Dr. Teran Procedures: CXR: COMPARISON: September 20 TECHNIQUE: PA and lateral views of the chest were obtained. FINDINGS: The lungs are normal volume. Moderate sized right pleural effusion smaller left pleural effusion still evident. Interstitial markings remain prominent. Cardiomegaly is stable. No new or progressive vascular engorgement. No pneumothorax. No focal consolidation. Fullness along the right heart border and right infrahilar region has not changed. This is probably the affects of vascular and atelectasis summation artifact. No acute bony finding noted. No aortic abnormality. IMPRESSION: Predominantly right-side pleural and parenchymal opacification not significantly different from prior day study. Medical Problem List: Cough with fever likely viral in nature versus early bronchitis complicated with chronic moderate right pleural effusion with right basilar atelectasis Suspect underlying COPD with history of tobacco use End-stage renal disease on hemodialysis Hypertension HIV Cirrhosis with history of hepatitis-C Mitral valve replacement on chronic anti coagulation therapy Brief History of Present Illness: 63-year-old male presented to the emergency room with cough x4 days. Patient was at dialysis today. He was sent over for further evaluation. Patient denied any fever, shortness of breath, chest pain. He reports no sick contacts. Patient with underlying end-stage renal disease on dialysis, HIV, hypertension and chronic anti coagulation therapy due to heart valve replacement. In the ER patient was evaluated. He was found to have elevated temperature 101.1 repeat shows improvement. White count 6.4, pro calc[place] [address]. Hemoglobin 11.3. GFR of 20. Chest x-ray shows moderate right pleural effusion with right by basilar atelectasis. This appears improved since last CT scan done in August. He reports that he was in [place] last month for thoracentesis. The patient will be admitted for further evaluation. When I saw the patient ER , he appeared comfortable. He reported improvement with breathing treatment. Significant other at bedside. Hospital Course: Patient presented with cough. Patient also had fever in the emergency room. Fever resolved. Chest x-ray showed chronic moderate right pleural effusion with right basilar atelectasis. Patient was admitted observation. Repeat chest x-ray shows no significant change. Patient with recent history of thoracentesis. Case discussed at length with nephrology. White count unremarkable. Pro calcitonin negative. Cough likely related to viral infection verses early bronchitis. At discharge patient will be sent home with Augmentin 500 mg 1 pill twice daily for 7 days. Recommendation to recheck chest x-ray in 1 week to monitor stability. Patient will follow up with nephrology this week with dialysis. Patient may contact nephrology if cough and fever persists. Patient will continue with a 1500 cc per day fluid restriction and low-salt diet. Patient will monitor his weight daily. If it increases by more than 5 lb in a day he is to contact his PCP or nephrology for further recommendation. Patient may have underlying COPD with history of tobacco use. At discharge he will continue with Symbicort 2 puffs twice daily and Pro air 2 puffs 3 times a day as needed for shortness of breath. Patient may follow up with pulmonology as an outpatient to further evaluate. Patient with end-stage renal disease on hemodialysis. Patient will continue with his medication. Patient will continue with dialysis every Saturday, and Saturdays. Patient with hypertension. Patient will continue with his medication metoprolol XL 25 mg daily. Recommendation is to maintain blood pressures less 150/80. Further adjustment can be done by his PCP. Patient has HIV. Patient will continue with his HIV medications Epivir 2.5 mL twice daily, Kaletra 200/50 mg 2 pills twice daily, and Isentress 400 mg 1 pill twice daily. Patient is seen in [place] for this issue. Patient has cirrhosis with history of hepatitis-C. Patient will continue with a 1500 cc per day fluid restriction and low-salt diet. Patient with history of mitral valve replacement on chronic anti coagulation therapy. Patient will continue with with his current Coumadin medication regimen. INR to be monitored by nephrology. Adjustments to be made by nephrology. Recommendation INR between 2.5 and 3.5. Patient has hyperlipidemia. Patient will continue with Lipitor 20 mg daily Vital Signs/Physical Exam: Temp Pulse Resp BP Pulse Ox 97.9 F 88 18 163/91 H 91 09/21/18 04:00 09/21/18 05:15 09/21/18 04:00 09/21/18 05:15 09/21/18 04:00 General: Alert, In no apparent distress, Oriented x3, Cooperative HEENT: Atraumatic Neck: Supple Respiratory: Diminished (Minimal to the right base), Other (Good aeration bilateral. No need for oxygen) Cardiovascular: Normal pulses, Regular rate/rhythm Gastrointestinal: Normal bowel sounds, Soft and benign, Non-distended, No tenderness, No masses, No rebound, No guarding Musculoskeletal: No erythema, No tenderness, No warmth Integumentary: No tenderness/swelling, No erythema, No warmth, No cyanosis, Other (Keloid to the right lower extremity) Neurological: Normal speech, Normal strength at 5/5 x4 extr, Normal tone, Normal affect Laboratory Data at Discharge: WBC 3.9 K/uL (4.3-10.9) L D 09/21/18 04:48 Hgb 11.6 g/dL (13.6-17.9) L 09/21/18 04:48 Hct 34.4 % (39.6-49.0) L 09/21/18 04:48 Plt Count 119 K/uL (152-406) L 09/21/18 04:48 PT 18.1 SECONDS (9.5-12.5) H 09/21/18 04:48 INR 1.53 09/21/18 04:48 Sodium 134 mmol/L (136-145) L 09/21/18 04:48 Potassium 3.5 mmol/L (3.5-5.1) 09/21/18 04:48 BUN 30 mg/dL (7-18) H 09/21/18 04:48 Creatinine 4.92 mg/dL (0.55-1.3) H D 09/21/18 04:48 Glucose 171 mg/dL (74-106) H 09/21/18 04:48 Magnesium 2.1 mg/dL (1.8-2.4) 09/21/18 04:48 Total Bilirubin 0.8 mg/dL (0.2-1.0) 09/21/18 04:48 AST 38 U/L (15-37) H 09/21/18 04:48 ALT 38 U/L (12-78) 09/21/18 04:48 Alkaline Phosphatase 97 U/L (45-117) 09/21/18 04:48 Home Medications: Lamivudine [Epivir] 2.5 ml PO BID 02/18/18 Atorvastatin Calcium [Lipitor*] 20 mg PO BEDTIME 05/17/18 Cholecalciferol (Vitamin D3) [Vitamin D3] 50,000 units PO EVERY 7TH DAY Lopinavir/Ritonavir [Kaletra 200-50 MG Tablet*] 2 tab PO BID 05/17/18 Metoprolol Succinate [Toprol Xl*] 25 mg PO DAILY 05/17/18 Raltegravir Potassium [Isentress*] 400 mg PO BID 05/17/18 Warfarin Sodium [Coumadin*] 12.5 mg PO DAILY 5 PM 05/17/18 Aspirin Chewable [Aspirin Chewable*] 81 mg PO DAILY 05/18/18 Docusate Sodium [Dok] 100 mg PO BID 05/18/18 Folic Acid/Vit Bcomp,C [Daija-Kodak Tablet] 1 tab PO DAILY 05/18/18 Albuterol Sulfate [Proair Hfa] 2 puff IH TID PRN #1 [email or web address] 09/21/18 Amox/Clavulanate [Augmentin 500-125 mg Tab*] 500 mg PO BID #14 tab 09/21/18 Budesonide/Formoterol Fumarate [Symbicort 160-4.5 Mcg Inhaler] 2 puff IH BID #1 [email or web address] 09/21/18 New Medications: Albuterol Sulfate [Proair Hfa] 2 puff IH TID PRN #1 [email or web address] PRN Reason: Shortness Of Breath Amox/Clavulanate [Augmentin 500-125 mg Tab*] 500 mg PO BID #14 tab Budesonide/Formoterol Fumarate [Symbicort 160-4.5 Mcg Inhaler] 2 puff IH BID #1 hfa.[email or web address] Patient Discharge Instructions: 1. Patient will follow up with his PCP within 1 week to follow up this hospitalization. 2. Patient presented with cough. Patient also had fever in the emergency room. Fever resolved. Chest x-ray showed chronic moderate right pleural effusion with right basilar atelectasis. Patient was admitted observation. Repeat chest x-ray shows no significant change. Patient with recent history of thoracentesis. Case discussed at length with nephrology. White count unremarkable. Pro calcitonin negative. Cough likely related to viral infection verses early bronchitis. At discharge patient will be sent home with Augmentin 500 mg 1 pill twice daily for 7 days. Recommendation to recheck chest x-ray in 1 week to monitor stability. Patient will follow up with nephrology this week with dialysis. Patient may contact nephrology if cough and fever persists. Patient will continue with a 1500 cc per day fluid restriction and low-salt diet. Patient will monitor his weight daily. If it increases by more than 5 lb in a day he is to contact his PCP or nephrology for further recommendation. 3. Patient may have underlying COPD with history of tobacco use. At discharge he will continue with Symbicort 2 puffs twice daily and Pro air 2 puffs 3 times a day as needed for shortness of breath. Patient may follow up with pulmonology as an outpatient to further evaluate. 4. Patient with end-stage renal disease on hemodialysis. Patient will continue with his medication. Patient will continue with dialysis every Saturday, and Saturdays. 5. Patient with hypertension. Patient will continue with his medication metoprolol XL 25 mg daily. Recommendation is to maintain blood pressures less 150/80. Further adjustment can be done by his PCP. 6. Patient has HIV. Patient will continue with his HIV medications Epivir 2.5 mL twice daily, Kaletra 200/50 mg 2 pills twice daily, and Isentress 400 mg 1 pill twice daily. Patient is seen in [place] for this issue. 7. Patient has cirrhosis with history of hepatitis-C. Patient will continue with a 1500 cc per day fluid restriction and low-salt diet. 8. Patient with history of mitral valve replacement on chronic anti coagulation therapy. Patient will continue with with his current Coumadin medication regimen. INR to be monitored by nephrology. Adjustments to be made by nephrology. Recommendation INR between 2.5 and 3.5. 9. Patient has hyperlipidemia. Patient will continue with Lipitor 20 mg daily Diet: Renal Activity: Ad pedro Time spent managing pt's care (in minutes): 55
[2018-09-21 10:27] VITALS: BP 147/81
[2018-09-21] MEDS ORDERED: DULERA 200/5 (MOMETASONE/FORMOTEROL) INHALER IH SCH (11:16)
--- NOTE | 2018-09-21 11:24 | EKG ---
Test Date: 2018-09-20 Test Time: 16:09:30 Plate Roller: MEASUREMENT RESULTS: Intervals: Rate: 85 UT: 182 QRSD: 82 QT: 398 QTc: 473 [place]: P: 60 UT: 182 QRS: 65 T: 86 INTERPRETIVE STATEMENTS: Sinus rhythm with premature atrial complexes with aberrant conduction Otherwise normal ECG Compared to ECG 08/12/2018 16:55:30 Atrial premature complex(es) now present Aberrant conduction of supraventricular beat(s) now present Left ventricular hypertrophy no longer present Prolonged QT interval no longer present Electronically Signed On 09-21-18 11:23:37 LOADER MACHINE by Rafael Bedolla
[2018-09-21] MEDS ORDERED: WARFARIN SODIUM 5 MG TAB PO SCH (17:00)
[2018-09-21] MEDS ORDERED: AMOX/K CLAV 500 MG TAB PO SCH (21:00)
== END 2018-09-21 12:13 | disposition home or self-care (01) ==
LOC: ER 15:07 → ERHOLD 17:21 → 2ND 19:23
PROVIDERS: ADMIT Family Medicine; ATTEND Family Medicine
DX: J90 Pleural effusion, not elsewhere classified (principal); J98.11 Atelectasis; R05 Cough; I12.0 Hypertensive chronic kidney disease with stage 5 chronic kidney disease or end stage renal disease; N18.6 End stage renal disease; Z99.2 Dependence on renal dialysis; Z21 Asymptomatic human immunodeficiency virus [HIV] infection status; K74.60 Unspecified cirrhosis of liver; B19.20 Unspecified viral hepatitis C without hepatic coma; Z79.01 Long term (current) use of anticoagulants; Z95.2 Presence of prosthetic heart valve; E78.5 Hyperlipidemia, unspecified
CPT/HCPCS: 36415; 71045; 71046; 80048; 80053; 80076; 82962; 83605; 83735 ×2; 83880; 84145; 84484; 85025 ×2; 85610 ×2; 87040 ×2; 87070; 87205; 87804 ×2; 93005; 96365; 96367; 96368; 96375; G0378 ×2; J0456; J0696; J2930; J3370; J7606

== ENCOUNTER 2018-11-24 17:39 | Emergency (ER) | payer OTHER ==
--- OUTSIDE RECORDS SUMMARY | 2018-11-24 17:44 | XMS REPORT ---
:1955 [facility] [address] [place] [address] Care Team Providers Name Role Phone UNKNOWN, REFFERING Primary Care Provider Unavailable AMIE MAYLIN S Unavailable Unavailable ELIANA, NEEL Unavailable Unavailable SHILA JAFFE MD, M.D. Unavailable Unavailable Problems This patient has no known problems. Allergies, Adverse Reactions, Alerts This patient has no known allergies or adverse reactions. Medications This patient has no known medications. Encounters Start End Encounter Admission Attending Care Care Encounter Date/Time Date/Time Type Type Clinicians Facility Department ID 2017-11-18 2017-11-20 [id number] 13:43:00 13:54:00 MAYLIN 2017-11-07 2017-11-07 Emergency E [facility] [id number] 20:22:00 20:22:00 2017-10-06 2017-10-06 [facility] [id number] 14:25:00 14:25:00 NEEL Results Test Description Test Time Test Comments Text Results Atomic Results Result Comments CD4/CD8 Ratio Profile 2017-11-27 08:04:00 Test Item Value Reference Range Comments Absolute CD 4 [place] (test pdfb=822013) 188 /uL 359-1519 % CD 4 Pos. Lymph. (test iqzn=466522) 37.6 % 30.8-58.5 Abs. CD 8 Suppressor (test tqgc=654800) 183 /uL 109-897 % CD 8 Pos. Lymph. (test aarg=208511) 36.6 % 12.0-35.5 CD4/CD8 Ratio (test rant=456750) 1.03 0.92-3.72 WBC (test jvnc=610266) 5.0 x10E3/uL 3.4-10.8 RBC (test hypi=770803) 3.00 x10E6/uL 4.14-5.80 Hemoglobin (test nyxv=213115) 9.6 g/dL 13.0-17.7 Hematocrit (test ynpr=954483) 27.6 % 37.5-51.0 MCV (test yirp=379152) 92 fL 79-97 MCH (test hhxb=087137) 32.0 pg 26.6-33.0 MCHC (test agps=544099) 34.8 g/dL 31.5-35.7 RDW (test jpnw=921767) 15.5 % 12.3-15.4 Platelets (test dhlm=833812) 113 x10E3/uL 150-379 Neutrophils (test uoxf=037476) 84 % Not Estab. Lymphs (test dmgz=033610) 9 % Not Estab. Monocytes (test utoq=825534) 6 % Not Estab. Eos (test szbg=512231) 1 % Not Estab. Basos (test nlcv=068610) 0 % Not Estab. Neutrophils (Absolute) (test nbhs=525702) 4.2 x10E3/uL 1.4-7.0 Lymphs (Absolute) (test wejt=875039) 0.5 x10E3/uL 0.7-3.1 Monocytes(Absolute) (test ouav=538593) 0.3 x10E3/uL 0.1-0.9 Eos (Absolute) (test ijlz=094912) 0.0 x10E3/uL 0.0-0.4 Baso (Absolute) (test nrrz=127114) 0.0 x10E3/uL 0.0-0.2 Immature Granulocytes (test xwzb=219714) 0 % Not Estab. Immature Grans (Abs) (test tyku=793246) 0.0 x10E3/uL 0.0-0.1 Culture, Blood [id number] 08:42:00Specimen: BloodCollected: 11/19/2017 00 :21 Status: Final Last Updated: 11/24/2017 08:42 Culture Result (Final) ( Final) No Growth After 5 DaysCulture, Blood [id number] 08:42: 00Specimen: BloodCollected: 11/18/2017 20:30 Status: Final Last Updated: 08:42 Culture Result (Final) (Final) No Growth After 5 DaysPOC Glucose, [id number] 11:51:00 Test Item Value Reference Range Comments POC Glucose (test 148 mg/dL 70-115 Notify RN or MDIf you consider code=POCGLUC) your patient critically ill, the Madeline Accu-Chek InformII metershould not be used for Glucose determinations.Draw a venous Glucose and send to the Main Lab for Analysis. CK [id number] 07:42:00 Test Item Value Reference Range Comments CK (test code=CK) na U/L 39-308 CKMB (test code=CKMB) 4.0 ng/mL 0.0-4.9 CKMB% (test code=CKMBP) 0.0 % 0.0-3.4 Npa-[id number] 07:39:00 Test Item Value Reference Range Comments NT ProBnp (test code=PBNP) >39135 pg/mL 0-124 Troponin [id number] 07:18:00 Test Item Value Reference Range Comments Troponin T (test code=MADHAV) 0.103 ng/mL 0.000-0.090 Lactate Ujmcwvlllstdz3611-54-64 07:18:00 Test Item Value Reference Range Comments LDH (test code=LDH) 271 U/L 135-225 POC Glucose, [id number] 06:50:00 Test Item Value Reference Range Comments POC Glucose (test 154 mg/dL 70-115 Notify RN or MDIf you consider code=POCGLUC) your patient critically ill, the Madeline Accu-Chek InformII metershould not be used for Glucose determinations.Draw a venous Glucose and send to the Main Lab for Analysis. CK [id number] 01:08:00 Test Item Value Reference Range Comments CK (test code=CK) na U/L 39-308 CKMB (test code=CKMB) 3.6 ng/mL 0.0-4.9 CKMB% (test code=CKMBP) 0.0 % 0.0-3.4 Troponin [id number] 01:08:00 Test Item Value Reference Range Comments Troponin T (test code=MADHAV) 0.106 ng/mL 0.000-0.090 XR CHEST 1 [id number] 21:02:01CLINICAL INFORMATION: Vascular congestion.Dictation Location: R 16Comparison: 11/18/2017 showed perihilar and lower lobe opacities. Technique: Portable AP 1951 hoursFINDINGS: Monitoring electrodes overlie the chest wall. Cardiomegaly withincreasing central vascular interstitial prominence with bibasilaropacities and effusions. No interval bone changes.IMPRESSION: Changes could indicate worsening cardiac decompensation orfluid overload.POC Glucose, [id number] 20:15:00 Test Item Value Reference Range Comments POC Glucose (test 139 mg/dL 70-115 If you consider your patient code=POCGLUC) critically ill, the Madeline Accu-Chek InformII metershould not be used for Glucose determinations.Draw a venous Glucose and send to the Main Lab for Analysis. POC Glucose, [id number] 16:52:00 Test Item Value Reference Range Comments POC Glucose (test 123 mg/dL 70-115 If you consider your patient code=POCGLUC) critically ill, the Madeline Accu-Chek InformII metershould not be used for Glucose determinations.Draw a venous Glucose and send to the Main Lab for Analysis. POC Glucose, [id number] 12:04:00 Test Item Value Reference Range Comments POC Glucose (test 140 mg/dL 70-115 If you consider your patient code=POCGLUC) critically ill, the Madeline Accu-Chek InformII metershould not be used for Glucose determinations.Draw a venous Glucose and send to the Main Lab for Analysis. POC Glucose, [id number] 08:01:00 Test Item Value Reference Range Comments POC Glucose (test 126 mg/dL 70-115 If you consider your patient code=POCGLUC) critically ill, the Madeline Accu-Chek InformII metershould not be used for Glucose determinations.Draw a venous Glucose and send to the Main Lab for Analysis. CK [id number] 06:03:00 Test Item Value Reference Range Comments CK (test code=CK) na U/L 39-308 CKMB (test code=CKMB) 2.8 ng/mL 0.0-4.9 CKMB% (test code=CKMBP) 0.0 % 0.0-3.4 Basic Metabolic [id number] 05:51:00 Test Item Value Reference Range Comments [...] race is not provided, and the patient isAfrican-[place], multiply by 1.212. If sex is not provided, and thepatient is female, multiply by 0.742. Results for patients <18 years ofage have not been validated by the MDRD study and should be interpretedwith caution.eGFR Result Interpretation:eGFR > or=60 is in the Normal RangeeGFR < 60 may mean kidney diseaseeGFR < 15 may mean kidney failureRanges recommended by the National Kidney Foundation,http://nkdep.nih .gov Magnesium, [id number] 05:51:00 Test Item Value Reference Range Comments Magnesium (test code=MG) 1.9 mg/dL 1.7-2.5 Oqrtkgfjjn1412-92-29 05:51:00 Test Item Value Reference Range Comments Phosphorus (test code=PO4) 3.8 mg/dL 2.70-4.50 Urm-[id number] 05:51:00 Test Item Value Reference Range Comments NT ProBnp (test code=PBNP) >38204 pg/mL 0-124 Troponin [id number] 05:51:00 Test Item Value Reference Range Comments Troponin T (test code=MADHAV) 0.126 ng/mL 0.000-0.090 CBC with [id number] 05:34:00 Test Item Value Reference Range Comments [...] Lymph Abs (test code=ALYMPH) 0.4 K/cumm 0.5-4.6 [place] Abs (test code=AMONO) 0.6 K/cumm 0.0-1.2 Eos Abs (test code=AEOS) 0.13 K/cumm 0.00-0.74 Baso Abs (test code=ABASO) 0.0 K/cumm 0.00-0.21 CK [id number] 18:39:00 Test Item Value Reference Range Comments CK (test code=CK) HIDE U/L 39-308 CKMB (test code=CKMB) 3.2 ng/mL 0.0-4.9 CKMB% (test code=CKMBP) HIDE % 0.0-3.4 Troponin [id number] 18:39:00 Test Item Value Reference Range Comments Troponin T (test code=MADHAV) 0.126 ng/mL 0.000-0.090 Hep B Surface [id number] 18:39:00 Test Item Value Reference Range Comments Hep Bs Ag (test code=HBSAG) Nonreactive Non-Reactive POC Glucose, [id number] 16:47:00 Test Item Value Reference Range Comments POC Glucose (test 143 mg/dL 70-115 If you consider your patient code=POCGLUC) critically ill, the Madeline Accu-Chek InformII metershould not be used for Glucose determinations.Draw a venous Glucose and send to the Main Lab for Analysis. XR CHEST 1 [id number] 08:18:18EXAM: Portable AP chest x-rayLOCATION: R16 INDICATION: CoughCOMPARISON: 11/07/2017FINDINGS:The cardiacsilhouette is stable enlargement. There are increasinginterstitial opacities, most evident in the perihilar regions and lowerlobes. There is blunting of the costophrenic angles bilaterally. Thereis no discernible pneumothorax.IMPRESSION:Increasing perihilar and bilateral lower lobe opacities compared to theprior exam dated 11/07. Findings may represent pulmonary edema orpneumonia in the appropriate clinical setting.Comprehensive Metabolic [id number] 08:05:00 Test Item Value Reference Range Comments [...] race is not provided, and the patient isAfrican-[place], multiply by 1.212. If sex is not provided, and thepatient is female, multiply by 0.742. Results for patients <18 years ofage have not been validated by the MDRD study and should be interpretedwith caution.eGFR Result Interpretation:eGFR > or=60 is in the Normal RangeeGFR < 60 may mean kidney diseaseeGFR < 15 may mean kidney failureRanges recommended by the National Kidney Foundation,http://nkdep.nih .gov CK [id number] 08:05:00 Test Item Value Reference Range Comments CK (test code=CK) 149 U/L 39-308 Troponin [id number] 08:02:00 Test Item Value Reference Range Comments Troponin T (test code=MADHAV) 0.114 ng/mL 0.000-0.090 Bcs-[id number] 08:02:00 Test Item Value Reference Range Comments NT ProBnp (test code=PBNP) >54914 pg/mL 0-124 CBC with Lsrhoieflttm9082-14-17 07:53:00 Test Item Value Reference Range Comments [...] Lymph Abs (test code=ALYMPH) 0.9 K/cumm 0.5-4.6 [place] Abs (test code=AMONO) 0.4 K/cumm 0.0-1.2 Eos Abs (test code=AEOS) 0.11 K/cumm 0.00-0.74 Baso Abs (test code=ABASO) 0.0 K/cumm 0.00-0.21 XR CHEST 1 [id number] 21:38:09EXAM: CHEST ONE VIEWINDICATION: CoughCOMPARISON: October 06, 2017TECHNIQUE: AP view of the chest.FINDINGS: The cardiomediastinal silhouette is unchanged. Mild congestive changesbilaterally. No pneumothorax or pleural effusion is identified. Theosseous structures are unremarkable.IMPRESSION: Diffuse congestive changes bilaterally.LOCATION: R16US DUPLX EXT VEINS COMPR, [id number] 20:09:34AFTER HOURS SERVICE ON: 10/06/2017 8: 09 PMRIGHT Lower Extremity Venous Duplex Doppler ExaminationLocation Code Q21Hnnbmai: SwellingTechnique: Real-time castillo scale, Doppler spectral analysis [...] imaged vessels.AFTER HOURS SERVICE ON: 10/06/2017 8:09 [facility] Lower Extremity Venous Duplex Doppler ExaminationLocation Code T24Xxtbntk : SwellingTechnique: Real-time castillo scale, Doppler spectral [...] of DVT in the imaged vessels.Comprehensive Metabolic [id number] 17 :40:00 Test Item Value Reference Range [...] race is not provided, and the patient isAfrican-[place], multiply by 1.212. If sex is not [...] the National Kidney Foundation,http://nkdep.nih .gov CBC with [id number] 17:15:00 Test Item Value Reference Range Comments [...] Lymph Abs (test code=ALYMPH) 1.3 K/cumm 0.5-4.6 [place] Abs (test code=AMONO) 0.6 K/cumm 0.0-1.2 Eos Abs (test code=AEOS) 0.12 K/cumm 0.00-0.74 Baso Abs (test code=ABASO) 0.0 K/cumm 0.00-0.21 XR CHEST 1 [id number] 16:56:42CHEST 1 VIEW: D29PSPMSIM: coughCOMPARISON: Sep 24, 2017FINDINGS:The heart is enlarged. There is engorgement of the central pulmonaryvasculature. There are patchy bibasilar areas of infiltrate oratelectasis with bilateral effusions. No pneumothorax is present. IMPRESSION: 1. Patchy areas of atelectasis or infiltrate in the lung bases withsmall bilateral effusions and vascular congestion most likely secondaryto CHF.Culture, Blood [id number] 14:58:00Specimen: BloodCollected: 2017 13:05 Status: Final Last Updated: 09/29/2017 14:58 (1) ER Bed 1 Culture Result (Final) (Final) No Growth After 5 DaysCulture, Blood [id number] 14:58:00Specimen: BloodCollected: 09/24/2017 12:50 Status: Final Last Updated: 09/29/2017 14:58 (1) ER Bed 1 Culture Result (Final) (Final) No Growth After 5 DaysPOC Glucose, [id number] 10:54:00 Test Item Value Reference Range Comments POC Glucose (test 168 mg/dL 70-115 If you consider your patient code=POCGLUC) critically ill, the Madeline Accu-Chek InformII metershould not be used for Glucose determinations.Draw a venous Glucose and send to the Main Lab for Analysis. POC Glucose, [id number] 07:16:00 Test Item Value Reference Range Comments POC Glucose (test 143 mg/dL 70-115 If you consider your patient code=POCGLUC) critically ill, the Madeline Accu-Chek InformII metershould not be used for Glucose determinations.Draw a venous Glucose and send to the Main Lab for Analysis. CBC with Ffxeshmgghed0801-26-20 07:15:00 Test Item Value Reference Range Comments [...] Lymph Abs (test code=ALYMPH) 1.3 K/cumm 0.5-4.6 [place] Abs (test code=AMONO) 0.7 K/cumm 0.0-1.2 Eos Abs (test code=AEOS) 0.07 K/cumm 0.00-0.74 Baso Abs (test code=ABASO) 0.0 K/cumm 0.00-0.21 Magnesium, [id number] 07:03:00 Test Item Value Reference Range Comments Magnesium (test code=MG) 2.0 mg/dL 1.7-2.5 Basic Metabolic [id number] 07:03:00 Test Item Value Reference Range Comments [...] race is not provided, and the patient isAfrican-[place], multiply by 1.212. If sex is not [...] the National Kidney Foundation,http://nkdep.nih .gov POC Glucose, [id number] 21:40:00 Test Item Value Reference Range Comments POC Glucose (test 129 mg/dL 70-115 If you consider your patient code=POCGLUC) critically ill, the Madeline Accu-Chek InformII metershould not be used for Glucose determinations.Draw a venous Glucose and send to the Main Lab for Analysis. Hep B Surface [id number] 18:36:00 Test Item Value Reference Range Comments Hep Bs Ag (test code=HBSAG) Nonreactive Non-Reactive POC Glucose, [id number] 10:51:00 Test Item Value Reference Range Comments POC Glucose (test 216 mg/dL 70-115 If you consider your patient code=POCGLUC) critically ill, the Madeline Accu-Chek InformII metershould not be used for Glucose determinations.Draw a venous Glucose and send to the Main Lab for Analysis. POC Glucose, [id number] 07:57:00 Test Item Value Reference Range Comments POC Glucose (test 164 mg/dL 70-115 If you consider your patient code=POCGLUC) critically ill, the Madeline Accu-Chek InformII metershould not be used for Glucose determinations.Draw a venous Glucose and send to the Main Lab for Analysis. POC Glucose, [id number] 19:47:00 Test Item Value Reference Range Comments POC Glucose (test 140 mg/dL 70-115 Notify RN or MDIf you consider code=POCGLUC) your patient critically ill, the Madeline Accu-Chek InformII metershould not be used for Glucose determinations.Draw a venous Glucose and send to the Main Lab for Analysis. Troponin [id number] 19:36:00 Test Item Value Reference Range Comments Troponin T (test code=MADHAV) 0.121 ng/mL 0.000-0.090 CK [id number] 19:25:00 Test Item Value Reference Range Comments CK (test code=CK) 160 U/L 39-308 The value HIDE originally released by [employer] on 09/25/2017 19:12 waschanged to 160 by [employer] on 09/25/2017 19:24 CKMB (test code=CKMB) 3.0 ng/mL 0.0-4.9 CKMB% (test code=CKMBP) 1.9 % 0.0-3.4 The value HIDE originally released by [employer] on 09/25/2017 19:12 waschanged to 1.9 by [employer] on 09/25/2017 19:24 POC Glucose, [id number] 16:42:00 Test Item Value Reference Range Comments POC Glucose (test 123 mg/dL 70-115 If you consider your patient code=POCGLUC) critically ill, the Madeline Accu-Chek InformII metershould not be used for Glucose determinations.Draw a venous Glucose and send to the Main Lab for Analysis. POC Glucose, [id number] 12:09:00 Test Item Value Reference Range Comments POC Glucose (test 141 mg/dL 70-115 If you consider your patient code=POCGLUC) critically ill, the Madeline Accu-Chek InformII metershould not be used for Glucose determinations.Draw a venous Glucose and send to the Main Lab for Analysis. Hep B Surface [id number] 07:59:00 Test Item Value Reference Range Comments Hep Bs Ag (test code=HBSAG) Nonreactive Non-Reactive CK [id number] 07:43:00 Test Item Value Reference Range Comments CK (test code=CK) n/a U/L 39-308 CKMB (test code=CKMB) 2.4 ng/mL 0.0-4.9 CKMB% (test code=CKMBP) 0.0 % 0.0-3.4 Troponin [id number] 07:38:00 Test Item Value Reference Range Comments Troponin T (test code=MADHAV) 0.134 ng/mL 0.000-0.090 Thyroid Stimulating Hormone (TSH)2017-09-25 07:38:00 Test Item Value Reference Range Comments TSH (test code=TSH) 1.10 mIU/mL 0.270-4.200 Fiurwwaesc5835-77-45 07:38:00 Test Item Value Reference Range Comments Phosphorus (test code=PO4) 3.4 mg/dL 2.70-4.50 Comprehensive Metabolic [id number] 07:38:00 Test Item Value Reference Range Comments [...] race is not provided, and the patient isAfrican-[place], multiply by 1.212. If sex is not provided, and thepatient is female, multiply by 0.742. Results for patients <18 years ofage have not been validated by the MDRD study and should be interpretedwith caution.eGFR Result Interpretation:eGFR > or=60 is in the Normal RangeeGFR < 60 may mean kidney diseaseeGFR < 15 may mean kidney failureRanges recommended by the National Kidney Foundation,http://nkdep.nih .gov Magnesium, [id number] 07:38:00 Test Item Value Reference Range Comments Magnesium (test code=MG) 2.0 mg/dL 1.7-2.5 CK [id number] 07:31:00 Test Item Value Reference Range Comments CK (test code=CK) 159 U/L 39-308 Lipid [id number] 07:31:00 Test Item Value Reference Range Comments Cholesterol (test 118 mg/dL 0-200 code=CHOL) Triglycerides (test 170 mg/dL 9-200 code=TRIG) HDL (test code=HDL) 49 mg/dL 40-60 Chol/HDL (test 2.4 Ratio 0.0-5.0 code=CHOLPHDL) LDL, Calculated (test 35 0-130 (NOTE)RISK OF HEART code=LDLC) DISEASEPublished by Belizean Heart AssociationAnalyte Optimal Boderline Increased RiskCHOL <200 200-239 >240TRIG <150 150-199 >200HDL Male: >60 <40HDL Female: >60 <50LDL <100 130-159 >160LDL NEAR OPTIMAL IS 100-129 VLDL (test code=VLDL) 34 mg/dL 5-40 LDL/HDL (test code=LDLPHDL) 1 Glycosylated [id number] 07:24:00 Test Item Value Reference Range Comments HBA1c (test code=HBA1C) 5.0 % 4.8-5.9 CBC with Udwjweblreqv2532-21-92 07:20:00 Test Item Value Reference Range Comments [...] Lymph Abs (test code=ALYMPH) 0.8 K/cumm 0.5-4.6 [place] Abs (test code=AMONO) 0.5 K/cumm 0.0-1.2 Eos Abs (test code=AEOS) 0.10 K/cumm 0.00-0.74 Baso Abs (test code=ABASO) 0.0 K/cumm 0.00-0.21 POC Glucose, [id number] 07:03:00 Test Item Value Reference Range Comments POC Glucose (test 147 mg/dL 70-115 If you consider your patient code=POCGLUC) critically ill, the Madeline Accu-Chek InformII metershould not be used for Glucose determinations.Draw a venous Glucose and send to the Main Lab for Analysis. POC Glucose, [id number] 22:05:00 Test Item Value Reference Range Comments POC Glucose (test 134 mg/dL 70-115 If you consider your patient code=POCGLUC) critically ill, the Madeline Accu-Chek InformII metershould not be used for Glucose determinations.Draw a venous Glucose and send to the Main Lab for Analysis. Blood Gas+Lytes+Glu+Ca+Hgb+Hct+[id number] 18:31:00 Test Item Value Reference Range Comments [...] Celcius code=PTTEMP) Comment (test code=COMMENT) alokrblvverqnscritvalDrnar [email or web address] Puncture Site (test code=PUNSITE) Radial. R Drawing Tech ID (test medel fi code=DRAWTECH) iPAP (test code=IPAP) 0 cmH2O Respiratory Rate (test code=RESP 0 RATE) Lactic Acid, Blood Gas (test 0.4 mmol/L code=BGLA) CT CHEST W/O [id number] 16:48:03CT CHEST W/O CONTRASTLOCATION CODE: R16 HISTORY: [...] bilateral axillary, prevascular, andparatracheal lymph nodes.Influenza B [id number] 14:36:00Specimen: NasalCollected: 09/24/2017 14:04 Status: Final Last [...] Culture of negative samples is recommended.Influenza A [id number] 14:34:00Specimen: NasalCollected: 09/24/2017 14:04 Status: Final Last [...] Culture of negative samples is recommended.Comprehensive Metabolic [id number] 13:54:00 Test Item Value Reference Range Comments [...] race is not provided, and the patient isAfrican-[place], multiply by 1.212. If sex is not provided, and thepatient is female, multiply by 0.742. Results for patients <18 years ofage have not been validated by the MDRD study and should be interpretedwith caution.eGFR Result Interpretation:eGFR > or=60 is in the Normal RangeeGFR < 60 may mean kidney diseaseeGFR < 15 may mean kidney failureRanges recommended by the National Kidney Foundation,http://nkdep.nih .gov Troponin [id number] 13:54:00 Test Item Value Reference Range Comments Troponin T (test code=MADHAV) 0.124 ng/mL 0.000-0.090 Ues-Uwi6613-02-23 13:54:00 Test Item Value Reference Range Comments NT ProBnp (test code=PBNP) >97452 pg/mL 0-124 CK [id number] 13:54:00 Test Item Value Reference Range Comments CK (test code=CK) 222 U/L 39-308 CKMB (test code=CKMB) 3.1 ng/mL 0.0-4.9 CKMB% (test code=CKMBP) 1.4 % 0.0-3.4 CK [id number] 13:54:00 Test Item Value Reference Range Comments CK (test code=CK) 222 U/L 39-308 Partial Thromboplastin [id number] 13:43:00 Test Item Value Reference Range Comments aPTT (test code=PTT) 35.70 seconds 24.39-37.25 Prothrombin [id number] 13:43:00 Test Item Value Reference Range Comments PT (test code=PT) 11.30 seconds 9.78-13.35 INR (test code=INR) 0.99 Ratio 0.6-1.2 Lactic Acid [id number] 13:41:00 Test Item Value Reference Range Comments Lactic Acid, Bld (test code=LAC) 1.3 mmol/L 0.5-1.9 CBC with [id number] 13:32:00 Test Item Value Reference Range Comments [...] Lymph Abs (test code=ALYMPH) 1.2 K/cumm 0.5-4.6 [place] Abs (test code=AMONO) 0.6 K/cumm 0.0-1.2 Eos Abs (test code=AEOS) 0.23 K/cumm 0.00-0.74 Baso Abs (test code=ABASO) 0.0 K/cumm 0.00-0.21 XR CHEST 1 [id number] 12:50:14XR CHEST 1 VIEWLOCATION: [id number]: None.INDICATION: CoughDISCUSSION:A single portable chest radiograph was [...]
--- OUTSIDE RECORDS SUMMARY | 2018-11-24 17:44 | XMS REPORT ---
:1955 Author Organization [facility] Address Unavailable , Allergies, [...] Patient Date Date Name Instruction AMLODIPINE AMLODIPINE [id number] Active Mo Active BESYLATE 10 MG BESYLATE Dicks OD ORAL TABLET CALCIUM ACETATE CALCIUM ACETATE 91754781108 Active Mo Active (PHOS BINDER) (PHOS BINDER) Dicks OD 667 MG ORAL CAPSULE CRESTOR 5 MG ROSUVASTATIN 23849375692 Active Mo Active ORAL TABLET CALCIUM Dicks OD EPIVIR SOLUTION LAMIVUDINE SOLN 24743133914 Active Mo Active Dicks OD ISENTRESS RALTEGRAVIR 28710491018 Active Mo Active TABLET POTASSIUM TABS Dicks OD KALETRA TABLET LOPINAVIR-RITONAVI 49323487487 Active Mo Active R TABS Dicks OD LAMIVUDINE LAMIVUDINE TABS 46395059279 Active Mo Active TABLET Dicks OD PROAIR HFA ALBUTEROL SULFATE 27488146418 Active Mo Active AEROSOL AERS Dicks OD SOLUTION PEDRO-EAMON RX B-COMPLEX W/ C & 54811081207 Active Mo Active TABLET FOLIC ACID TABS Dicks OD VITAMIN D2 ERGOCALCIFEROL 28664803209 Active Mo Active TABLET TABS Dicks OD Diagnostic Results Date Name Value Unit Range Description Append: Eye Exam - Hematology T-helper cells (CD4) count 602 uL Append: Eye Exam - Serology HIV-1RNA, serum, by PCR, quantitative 20 {Copies}/mL Procedures Code Procedure Name Date Entry Date Standard Description CPT-64218 Dispensing Visit (UNLIVSTED OPHTHALMOLOGICAL 10:14:39 CDT SERVICE/PROCEDURE) CPT-01618 Est Patient Comprehensive Opt - 43097 15:29:32 CDT CPT-50649 New Patient Intermediate Opt - 21350 14:28:41 CDT
--- NOTE | 2018-11-24 18:35 | RAD REPORT ---
EXAM DESCRIPTION: RAD - Chest Single View - 11/24/2018 6:27 pm CLINICAL HISTORY: DYSPNEA Chest pain. COMPARISON: Chest Pa And Lat (2 Views) dated 09/21/2018; Chest Single View dated 09/20/2018; Chest Sin gle View dated 07/28/2018; Chest Pa And Lat (2 Views) dated 07/05/2018 FINDINGS: Portable technique limits examination quality. Airspace opacification in the right lung base is seen with a right pleural effusion, likely represent ing pneumonia. The heart is moderately enlarged in size. Sternotomy wires are present. IMPRESSION: Right lung base airspace opacification with right pleural fluid, likely pneumonia.
[2018-11-24 18:45] LABS: Absolute Lymphocytes (CBC) 0.9 K/uL (0.7-4.9); Absolute Monocytes 0.7 K/uL (0.1-1.3); Basophils % 0.7 % (0-1.3); Eosinophils % 0.4 % (0-4.4); Hematocrit 31.9 % (39.6-49.0); MPV 7.1 fL (7.6-11.3); Monocytes % 10.8 % (3.3-12.3); RBC Red Blood Cell Count 3.18 M/uL (4.33-5.43)
[2018-11-24 19:07] LABS: Bilirubin Direct 0.3 mg/dL (0-0.2); Bilirubin Total 0.7 mg/dL (0.2-1.0); Magnesium 1.9 mg/dL (1.8-2.4); Protein, Total 7.8 g/dL (6.4-8.2); Troponin (Emerg Dept Use Only) 0.04 ng/mL (0.0-0.045)
--- NOTE | 2018-11-24 19:38 | EDPHYS ---
Physician Documentation [facility] Name: Salvatore Goldman Age: 63 yrs Sex: Male : 1955 Arrival Date: 11/24/2018 Time: 17:42 Bed 24 Private MD: out of town, doctor ED Physician Miguel Bullock HPI: 11/24 18:42 This 63 yrs old Black Male presents to ER via Ambulatory with complaints of Reaction to ps1 medication. 18:42 patient started on ramipril and now having dry cough and post-tussive emesis. Pt has ps1 multiple medical problems and on dialysis T,T,S. Pt of Dr. Washburn. No fever, non productive cough. . Historical: - Allergies: 17:49 codeine sulfate (dizziness); aa5 - PMHx: 17:49 Cirrhosis; Diabetes - NIDDM; Dialysis; heart valve; Hepatitis; HIV; Hyperlipidemia; aa5 Karposi Sarcoma (left leg); kidney failure; - Immunization history:: Adult Immunizations unknown. - Social history:: Smoking status: Patient/guardian denies using tobacco. - Ebola Screening: : No symptoms or risks identified at this time. ROS: 18:42 Constitutional: Negative for fever, chills, and weight loss, Eyes: Negative for injury, ps1 pain, redness, and discharge, Cardiovascular: Negative for chest pain, palpitations, and edema, Abdomen/GI: Negative for abdominal pain, nausea, vomiting, diarrhea, and constipation, Back: Negative for injury and pain, MS/Extremity: Negative for injury and deformity, Skin: Negative for injury, rash, and discoloration, Neuro: Negative for headache, weakness, numbness, tingling, and seizure. 18:42 Respiratory: Positive for cough, with no reported sputum, shortness of breath. Exam: 18:42 Constitutional: This is a well developed, well nourished patient who is awake, alert, ps1 and in no acute distress. Head/Face: Normocephalic, atraumatic. Eyes: Pupils equal round and reactive to light, extra-ocular motions intact. Lids and lashes normal. Conjunctiva and sclera are non-icteric and not injected. Chest/axilla: Normal chest wall appearance and motion. Nontender with no deformity. No lesions are appreciated. Cardiovascular: Regular rate and rhythm. No gallops, murmurs, or rubs. Normal PMI, no JVD. No pulse deficits. Respiratory: Lungs have equal breath sounds bilaterally, clear to auscultation and percussion. No rales, rhonchi or wheezes noted. No increased work of breathing, no retractions or nasal flaring. Abdomen/GI: Soft, non-tender, with normal bowel sounds. No distension or tympany. No guarding or rebound. No evidence of tenderness throughout. MS/ Extremity: Pulses equal, no cyanosis. Neurovascular intact. Full, normal range of motion. 18:42 Skin: Av fistula present with thrill. . Vital Signs: 17:49 BP 174 / 93; Pulse 88; Resp 16 S; Temp 98.7(O); Pulse Ox 97% on R/A; Weight 72.57 kg aa5 (R); Pain 0/10; 19:57 BP 170 / 75; Pulse 80; Resp 18; Pulse Ox 100% on R/A; Pain 0/10; mg2 MDM: 18:24 Patient medically screened. ps1 19:32 Data reviewed: vital signs, nurses notes, lab test result(s), and as a result, I will ps1 discharge patient. Counseling: I had a detailed discussion with the patient and/or guardian regarding: the historical points, exam findings, and any diagnostic results supporting the discharge/admit diagnosis, lab results, radiology results, the need for outpatient follow up. ED course: DC ramipril. Will have patient follow up with Wu for reevaluation of his medication. Goes to dialysis tomorrow. Does not clinically appear c/w PNA, although suggestive on CXR. No hypoxia and no fever. Will send patient with azithromycin given his comorbidities. . 11/24 18:07 Order name: CBC with Diff; Complete Time: 19: ps1 11/24 18:07 Order name: LFT's; Complete Time: : ps1 11/24 18:07 Order name: Magnesium; Complete Time: : ps1 11/24 18:07 Order name: NT PRO-BNP; Complete Time: 19: ps1 11/24 18:07 Order name: Troponin (emerg Dept Use Only); Complete Time: : ps1 11/24 18:07 Order name: CMP; Complete Time: 19:31 ps1 11/24 18:07 Order name: XRAY Chest (1 view); Complete Time: 19:00 [facility] [place] 11/24 18:07 Order name: EKG; Complete Time: 18:07 [facility] [place] 11/24 18:07 Order name: Cardiac monitoring; Complete Time: 18:45 [facility] [place] 11/24 18:07 Order name: EKG - Nurse/Tech; Complete Time: 18:45 [facility] [place] 11/24 18:07 Order name: IV Saline Lock; Complete Time: 18:45 [facility] [place] 11/24 18:07 Order name: Labs collected and sent; Complete Time: 18:46 [facility] [place] 11/24 18:07 Order name: O2 Per Protocol; Complete Time: 18:46 [facility] [place] 11/24 18:07 Order name: O2 Sat Monitoring; Complete Time: 18:46 ps1 Administered Medications: No medications were administered Disposition: 11/24/18 19:37 Discharged to Home. Impression: ESTEBAN Inhibitor related cough. - Condition is Stable. - Discharge Instructions: Cough, Adult, [id number]. - Prescriptions for telmisartan 40 mg Oral tablet - take 1 tablet by ORAL route once daily; 30 tablet. - Medication Reconciliation Form, Thank You Letter, Antibiotic Education, Prescription Opioid Use form. - Follow up: Lorne Washburn DO; When: 48 Hours; Reason: Recheck today's complaints. - Problem is an ongoing problem. - Symptoms have improved. Signatures: Dispatcher [employer] EDMS Miladys Magallon RN RN aa5 Miguel Bullock MD MD ps1 Young Toscano RN RN mg2 Corrections: (The following items were deleted from the chart) 19:59 19:37 11/24/2018 19:37 Discharged to Home. Impression: ESTEBAN Inhibitor related cough. mg2 Condition is Stable. Forms are Medication Reconciliation Form, Thank You Letter, Antibiotic Education, Prescription Opioid Use. Follow up: Lorne Washburn; When: 48 Hours; Reason: Recheck today's complaints. Problem is an ongoing problem. Symptoms have improved. ps1
--- NOTE | 2018-11-24 19:38 | ER ---
Nurse's Notes [facility] Name: Salvatore Goldman Age: 63 yrs Sex: Male : 1955 Arrival Date: 11/24/2018 Time: 17:42 Bed 24 Private MD: out of town, doctor Diagnosis: ESTEBAN Inhibitor related cough Presentation: 11/24 17:46 Presenting complaint: Patient states: "I can barely walk without getting short of aa5 breath". Pt reports swelling to legs and face that began 2 weeks ago, pt states "they gave me a new blood pressure medicine 2 weeks ago". Pt also c/o itching all over. Report last Dialysis was Saturday. Transition of care: patient was not received from another setting of care. Onset of symptoms was 2018. Risk Assessment: Do you want to hurt yourself or someone else? Patient reports no desire to harm self or others. Initial Sepsis Screen: Does the patient meet any 2 criteria? No. Patient's initial sepsis screen is negative. Does the patient have a suspected source of infection? No. Patient's initial sepsis screen is negative. Care prior to arrival: None. 17:46 Acuity: NARDA 3 aa5 17:46 Method Of Arrival: Ambulatory aa5 Historical: - Allergies: 17:49 codeine sulfate (dizziness); aa5 - PMHx: 17:49 Cirrhosis; Diabetes - NIDDM; Dialysis; heart valve; Hepatitis; HIV; Hyperlipidemia; aa5 Karposi Sarcoma (left leg); kidney failure; - Immunization history:: Adult Immunizations unknown. - Social history:: Smoking status: Patient/guardian denies using tobacco. - Ebola Screening: : No symptoms or risks identified at this time. Screenin:55 Abuse screen: Denies threats or abuse. Denies injuries from another. Nutritional mg2 screening: No deficits noted. Tuberculosis screening: No symptoms or risk factors identified. 18:45 Fall Risk IV access (20 points). mg2 Assessment: 18:43 General: Appears in no apparent distress. distressed, Behavior is calm, cooperative. mg2 Pain: Denies pain. Neuro: Level of Consciousness is awake, alert, obeys commands, Oriented to person, place, time, situation. Cardiovascular: Capillary refill < 3 seconds Patient's skin is warm and dry. Respiratory: Reports shortness of breath on exertion cough that is Airway is patent Respiratory effort is even, unlabored, Respiratory pattern is regular, symmetrical. GI: No signs and/or symptoms were reported involving the gastrointestinal system. : No signs and/or symptoms were reported regarding the genitourinary system. EENT: No signs and/or symptoms were reported regarding the EENT system. Derm: Skin is intact, is healthy with good turgor, Skin is pink, warm \\T\\ dry. normal, Reports itching. Musculoskeletal: Circulation, motion, and sensation intact. Capillary refill < 3 seconds. 19:58 Reassessment: Patient denies pain at this time. mg2 Vital Signs: 17:49 BP 174 / 93; Pulse 88; Resp 16 S; Temp 98.7(O); Pulse Ox 97% on R/A; Weight 72.57 kg aa5 (R); Pain 0/10; 19:57 BP 170 / 75; Pulse 80; Resp 18; Pulse Ox 100% on R/A; Pain 0/10; mg2 ED Course: 17:42 Patient arrived in ED. mr 17:43 out of town, doctor is Private Physician. mr 17:46 Arm band placed on. aa5 17:48 Triage completed. aa5 17:55 Young Tocsano, LAURYN is Primary Nurse. mg2 18:05 Miguel Bullock MD is Attending Physician. ps1 18:27 XRAY Chest (1 view) In Process Unspecified. EDMS 18:45 No provider procedures requiring assistance completed. Inserted saline lock: 22 gauge mg2 in right forearm, using aseptic technique. Blood collected. 19:34 Lorne Washburn DO is Referral Physician. ps1 19:57 Patient has correct armband on for positive identification. Door closed. Warm blanket mg2 given. 19:58 IV discontinued, intact, bleeding controlled, No redness/swelling at site. Pressure mg2 dressing applied. Administered Medications: No medications were administered Outcome: 19:37 Discharge ordered by . ps1 19:58 Discharged to home via wheelchair, with family. mg2 19:58 Condition: stable 19:58 Discharge instructions given to patient, family, Instructed on discharge instructions, follow up and referral plans. medication usage, Demonstrated understanding of instructions, follow-up care, medications, Prescriptions given X 1. 19:59 Patient left the ED. mg2 Signatures: Dispatcher [employer] [facility] Bonny Phoenix Audri, RN RN aa5 Miguel Bullock MD MD ps1 Young Toscano, LAURYN RN mg2
[2018-11-24 21:00] VITALS: TEMP 98.7
[2018-11-24 21:05] VITALS: BP 170/75; O2SAT 100
--- NOTE | 2018-11-25 09:16 | EKG ---
Test Date: 2018-11-24 Test Time: 18:24:39 Door Core Assembler: MEASUREMENT RESULTS: Intervals: Rate: 85 LA: 182 QRSD: 86 QT: 390 QTc: 464 [place]: P: 48 LA: 182 QRS: 50 T: 69 INTERPRETIVE STATEMENTS: Normal sinus rhythm Minimal voltage criteria for LVH, may be normal variant Borderline ECG Compared to ECG 09/20/2018 16:09:30 Left ventricular hypertrophy now present Atrial premature complex(es) no longer present Aberrant conduction of supraventricular beat(s) no longer present Electronically Signed On 11-25-18 09:16:06 CDT by Brandt Dawn
== END 2018-11-24 19:59 | disposition home or self-care (01) ==
LOC: ER 17:39
DX: R05 Cough (principal); Z88.6 Allergy status to analgesic agent
CPT/HCPCS: 36415; 71045; 80053; 80076; 83735; 83880; 84484; 85025; 93005; 99284

== ENCOUNTER 2019-02-17 19:55 | Emergency (ER) | payer OTHER ==
--- OUTSIDE RECORDS SUMMARY | 2019-02-17 19:59 | XMS REPORT ---
[...] Patient Date Date Name Instruction AMLODIPINE AMLODIPINE 23903588929 Active Mo Active BESYLATE 10 MG BESYLATE Dicks OD ORAL TABLET CALCIUM ACETATE CALCIUM ACETATE 81617320716 Active Mo Active (PHOS BINDER) (PHOS BINDER) Dicks OD 667 MG ORAL CAPSULE CRESTOR 5 MG ROSUVASTATIN 27797780854 Active Mo Active ORAL TABLET CALCIUM Dicks OD EPIVIR SOLUTION LAMIVUDINE SOLN 46399756028 Active Mo Active Dicks OD ISENTRESS RALTEGRAVIR 46609147539 Active Mo Active TABLET POTASSIUM TABS Dicks OD KALETRA TABLET LOPINAVIR-RITONAVI 09425494491 Active Mo Active R TABS Dicks OD LAMIVUDINE LAMIVUDINE TABS 68417256676 Active Mo Active TABLET Dicks OD PROAIR HFA ALBUTEROL SULFATE 96400100652 Active Mo Active AEROSOL AERS Dicks OD SOLUTION PEDRO-EAMON RX B-COMPLEX W/ C & 55527164280 Active Mo Active TABLET FOLIC ACID TABS Dicks OD VITAMIN D2 ERGOCALCIFEROL 36155399908 Active Mo Active TABLET TABS Dicks OD Diagnostic Results Date Name Value Unit Range Description Append: Eye Exam - Hematology T-helper cells (CD4) count 602 uL Append: Eye Exam - Serology HIV-1RNA, serum, by PCR, quantitative 20 {Copies}/mL Procedures Code Procedure Name Date Entry Date Standard Description CPT-08165 Dispensing Visit (UNLIVSTED OPHTHALMOLOGICAL 10:14:39 CDT SERVICE/PROCEDURE) CPT-29618 Est Patient Comprehensive Opt - 27524 15:29:32 CDT CPT-51933 New Patient Intermediate Opt - 44448 14:28:41 CDT
[2019-02-17 20:44] LABS: Absolute Lymphocytes (CBC) 0.9 K/uL (0.7-4.9); Basophils % 0.6 % (0-1.3); Eosinophils % 1.6 % (0-4.4); Hematocrit 32.1 % (39.6-49.0); Lymphocytes % 18.5 % (15.3-44.8); MPV 7.3 fL (7.6-11.3); Monocytes % 14.7 % (3.3-12.3); RBC Red Blood Cell Count 3.27 M/uL (4.33-5.43)
[2019-02-17 20:48] LABS: Protime INR 2.21
[2019-02-17 21:01] LABS: Albumin 2.7 g/dL (3.4-5.0); Bilirubin Direct 0.5 mg/dL (0-0.2); Bilirubin Total 0.9 mg/dL (0.2-1.0); Potassium 3.3 mmol/L (3.5-5.1); Protein, Total 8.5 g/dL (6.4-8.2)
[2019-02-17] MEDS ORDERED: HYDROCODONE/APAP 10/325 TAB ONE (21:01)
--- NOTE | 2019-02-17 22:11 | RAD REPORT ---
EXAM DESCRIPTION: RAD - Knee Right 3 View - 02/17/2019 9:08 pm CLINICAL HISTORY: PAIN COMPARISON: No comparisons FINDINGS: The bones are osteopenic. No acute fracture seen. No joint effusion evident. Atheroscleros is is present.
--- NOTE | 2019-02-17 22:12 | ER ---
Nurse's Notes [facility] Name: Salvatore Goldman Age: 63 yrs Sex: Male : 1955 Arrival Date: 02/17/2019 Time: 20:00 Bed 5 Private MD: Diagnosis: Fall due to bumping against object;Contusion of left knee;Contusion of right knee;Strain of muscle and tendon of back wall of thorax;Strain of muscle and tendon of front wall of thorax;Other chest pain-contusion;Kaposi's sarcoma of soft tissue-left leg;End stage renal disease-on HD;Hypokalemia;Anemia, unspecified;Pleural effusion in conditions classified elsewhere;Fracture of one rib, right side-RIGHT 6TH RIB Presentation: 02/17 20:05 Presenting complaint: Patient states: States fell in the bathroom this morning, states lp1 "My family just has junk anywhere, I can barely walk in there"; Pain to right shoulder, both knees, right side of ribs; States "It hurts when I take a breath or move a ceratin way". Transition of care: patient was not received from another setting of care. Onset of symptoms was February 17, 2019. Risk Assessment: Do you want to hurt yourself or someone else? Patient reports no desire to harm self or others. Initial Sepsis Screen: Does the patient meet any 2 criteria? No. Patient's initial sepsis screen is negative. Does the patient have a suspected source of infection? No. Patient's initial sepsis screen is negative. Care prior to arrival: None. 20:05 Method Of Arrival: Wheelchair lp1 20:05 Acuity: NARDA 4 lp1 20:21 Acuity: NARDA 3 la1 Historical: - Allergies: 20:10 codeine sulfate (DIZZINESS); lp1 - Home Meds: 20:10 aspirin 81 mg Oral chew 1 tab once daily [Active]; atorvastatin 20 mg Oral tab 1 tab lp1 once daily [Active]; docusate sodium 100 mg Oral tab 1 tab 2 times per day [Active]; Isentress 400 mg Oral tab 1 tab 2 times per day [Active]; Kaletra 200-50 mg Oral tab 2 tabs 2 times per day [Active]; lamivudine 10 mg/mL Oral soln 2.5 mL once daily [Active]; metoprolol tartrate 25 mg Oral tab 1 tab once daily [Active]; Vitamin D Oral 54065 unit WEEKLY [Active]; warfarin 5 mg Oral tab 1 tab once daily [Active]; - PMHx: 20:10 Cirrhosis; Diabetes - NIDDM; Dialysis; heart valve; Hepatitis; HIV; Hyperlipidemia; lp1 Karposi Sarcoma (left leg); kidney failure; R arm fistula; - PSHx: 20:10 Partial R lung removal; mechanical heart valve; lp1 - Immunization history:: Adult Immunizations up to date. - Social history:: Smoking status: Patient/guardian denies using tobacco. - Ebola Screening: : No symptoms or risks identified at this time. Screenin:42 Abuse screen: Denies threats or abuse. Nutritional screening: No deficits noted. la1 Tuberculosis screening: No symptoms or risk factors identified. Fall Risk None identified. Assessment: 20:42 General: Appears slender, well groomed, Behavior is calm, appropriate for age. Pain: la1 Complains of pain in right lateral posterior chest and right lateral anterior chest and left leg and right leg. Neuro: Level of Consciousness is awake, alert, obeys commands, Oriented to person, place, time, situation. Cardiovascular: Capillary refill < 3 seconds Patient's skin is warm and dry. Respiratory: Airway is patent Respiratory effort is even, unlabored, Respiratory pattern is regular, symmetrical. GI: No signs and/or symptoms were reported involving the gastrointestinal system. : No signs and/or symptoms were reported regarding the genitourinary system. Musculoskeletal: Circulation, motion, and sensation intact. 21:26 Reassessment: Patient appears in no apparent distress at this time. No changes from la1 previously documented assessment. Patient and/or family updated on plan of care and expected duration. Pain level reassessed. Patient is alert, oriented x 3, equal unlabored respirations, skin warm/dry/pink. 21:57 Reassessment: Patient appears in no apparent distress at this time. No changes from la1 previously documented assessment. Patient and/or family updated on plan of care and expected duration. Pain level reassessed. Patient is alert, oriented x 3, equal unlabored respirations, skin warm/dry/pink. 22:36 Reassessment: Patient and/or family updated on plan of care and expected duration. Pain ea level reassessed. Patient is alert, oriented x 3, equal unlabored respirations, skin warm/dry/pink. Discharge instruction given to patient, verbalized the understanding of instruction. Pt left ED via wheelchair accompanied by family, pt tolerating well. Patient states feeling better. Vital Signs: 20:07 BP 116 / 67; Pulse 77; Resp 18; Temp 99(O); Pulse Ox 95% on R/A; Weight 71.3 kg (R); lp1 Height 5 ft. 7 in. (170.18 cm); 21:57 BP 136 / 79; Pulse 72; Resp 16; Pulse Ox 98% on R/A; la1 22:30 BP 135 / 80; Pulse 70; Resp 18; Temp 98.7; Pulse Ox 99% ; ea 20:07 Body Mass Index 24.62 (71.30 kg, 170.18 cm) lp1 ED Course: 20:00 Patient arrived in ED. es 20:07 Triage completed. lp1 20:07 Arm band placed on right wrist. lp1 20:11 Boston Johnson MD is Attending Physician. beny 20:12 Brad Israel, LAURYN is Primary Nurse. la1 20:42 Call light in reach. Side rails up X 1. la1 20:42 Missed attempt(s): 22 gauge in right forearm. Bleeding controlled, band aid applied, la1 catheter tip intact. 21:06 Chest Single View XRAY In Process Unspecified. EDMS 21:07 Shoulder Right (2 View) XRAY In Process Unspecified. EDMS 21:07 Knee Left 3 View XRAY In Process Unspecified. EDMS 21:07 Knee Right 3 View XRAY In Process Unspecified. EDMS 21:16 CT Traumagram (Head C Spine CAP wo con) In Process Unspecified. EDMS 22:10 Selwyn Richard MD is Referral Physician. beny 22:13 Lorne Washburn DO is Referral Physician. beny 22:38 No provider procedures requiring assistance completed. Patient did not have IV access ea during this emergency room visit. Administered Medications: 21:19 Drug: Almo 10 mg-325 mg 1 tabs Route: PO; la1 21:59 Follow up: Response: No adverse reaction; Pain is decreased la1 22:29 Drug: Valium 5 mg Route: PO; ea 22:39 Follow up: Response: No adverse reaction; Medication administered at discharge. ea Outcome: 22:11 Discharge ordered by . beny 22:38 Discharged to home via wheelchair, with family. gayla 22:38 Condition: stable 22:38 Discharge instructions given to patient, Instructed on discharge instructions, follow up and referral plans. medication usage, Demonstrated understanding of instructions, follow-up care, medications, Prescriptions given X 2. 22:40 Patient left the ED. ea Signatures: Dispatcher [employer] Boston Miner MD MD cha Salyer, Edna es Pena, Laura, RN RN lp1 Brad Israel RN RN la1 Kimber Duffy RN RN ea
--- NOTE | 2019-02-17 22:12 | RAD REPORT ---
EXAM DESCRIPTION: RAD - Knee Left 3 View - 02/17/2019 9:08 pm CLINICAL HISTORY: PAIN COMPARISON: No comparisons FINDINGS: Diffuse osteopenia is seen. Mild medial compartment space narrowing is evident. No acute f racture or dislocation. No joint effusion evident.
--- NOTE | 2019-02-17 22:12 | EDPHYS ---
Physician Documentation [facility] Name: Salvatore Goldman Age: 63 yrs Sex: Male : 1955 Arrival Date: 02/17/2019 Time: 20:00 Bed 5 Private MD: ED Physician Boston Johnson HPI: 02/17 20:22 This 63 yrs old Black Male presents to ER via Wheelchair with complaints of Knee Pain, beny Shoulder Pain, Flank Pain. Historical: - Allergies: 20:10 codeine sulfate (DIZZINESS); lp1 - Home Meds: 20:10 aspirin 81 mg Oral chew 1 tab once daily [Active]; atorvastatin 20 mg Oral tab 1 tab lp1 once daily [Active]; docusate sodium 100 mg Oral tab 1 tab 2 times per day [Active]; Isentress 400 mg Oral tab 1 tab 2 times per day [Active]; Kaletra 200-50 mg Oral tab 2 tabs 2 times per day [Active]; lamivudine 10 mg/mL Oral soln 2.5 mL once daily [Active]; metoprolol tartrate 25 mg Oral tab 1 tab once daily [Active]; Vitamin D Oral 27146 unit WEEKLY [Active]; warfarin 5 mg Oral tab 1 tab once daily [Active]; - PMHx: 20:10 Cirrhosis; Diabetes - NIDDM; Dialysis; heart valve; Hepatitis; HIV; Hyperlipidemia; lp1 Karposi Sarcoma (left leg); kidney failure; R arm fistula; - PSHx: 20:10 Partial R lung removal; mechanical heart valve; lp1 - Immunization history:: Adult Immunizations up to date. - Social history:: Smoking status: Patient/guardian denies using tobacco. - Ebola Screening: : No symptoms or risks identified at this time. ROS: 20:26 Constitutional: Negative for fever, chills, and weight loss, Eyes: Negative for injury, beny pain, redness, and discharge, ENT: Negative for injury, pain, and discharge, Neck: Negative for injury, pain, and swelling, Cardiovascular: Negative for chest pain, palpitations, and edema, Respiratory: Negative for shortness of breath, cough, wheezing, and pleuritic chest pain, Abdomen/GI: Negative for abdominal pain, nausea, vomiting, diarrhea, and constipation, Back: Negative for injury and pain, : Negative for injury, bleeding, discharge, and swelling, Skin: Negative for injury, rash, and discoloration, Neuro: Negative for headache, weakness, numbness, tingling, and seizure, Psych: Negative for depression, anxiety, suicide ideation, homicidal ideation, and hallucinations, Allergy/Immunology: Negative for hives, rash, and allergies, Endocrine: Negative for neck swelling, polydipsia, polyuria, polyphagia, and marked weight changes, Hematologic/Lymphatic: Negative for swollen nodes, abnormal bleeding, and unusual bruising. 20:26 MS/extremity: Positive for pain, swelling, tenderness, of the right leg and left leg. Exam: 20:26 Constitutional: This is a well developed, well nourished patient who is awake, alert, beny and in no acute distress. Head/Face: Normocephalic, atraumatic. Eyes: Pupils equal round and reactive to light, extra-ocular motions intact. Lids and lashes normal. Conjunctiva and sclera are non-icteric and not injected. Cornea within normal limits. Periorbital areas with no swelling, redness, or edema. ENT: Nares patent. No nasal discharge, no septal abnormalities noted. Tympanic membranes are normal and external auditory canals are clear. Oropharynx with no redness, swelling, or masses, exudates, or evidence of obstruction, uvula midline. Mucous membranes moist. Neck: Trachea midline, no thyromegaly or masses palpated, and no cervical lymphadenopathy. Supple, full range of motion without nuchal rigidity, or vertebral point tenderness. No Meningismus. Cardiovascular: Regular rate and rhythm with a normal S1 and S2. No gallops, murmurs, or rubs. Normal PMI, no JVD. No pulse deficits. Respiratory: Lungs have equal breath sounds bilaterally, clear to auscultation and percussion. No rales, rhonchi or wheezes noted. No increased work of breathing, no retractions or nasal flaring. Abdomen/GI: Soft, non-tender, with normal bowel sounds. No distension or tympany. No guarding or rebound. No evidence of tenderness throughout. Back: No spinal tenderness. No costovertebral tenderness. Full range of motion. Male : Normal genitalia with no discharge or lesions. Skin: Warm, dry with normal turgor. Normal color with no rashes, no lesions, and no evidence of cellulitis. MS/ Extremity: Pulses equal, no cyanosis. Neurovascular intact. Full, normal range of motion. Neuro: Awake and alert, GCS 15, oriented to person, place, time, and situation. Cranial nerves II-XII grossly intact. Motor strength 5/5 in all extremities. Sensory grossly intact. Cerebellar exam normal. Normal gait. Psych: Awake, alert, with orientation to person, place and time. Behavior, mood, and affect are within normal limits. 20:26 Chest/axilla: Inspection: normal, Palpation: tenderness, that is mild, of the right lateral anterior chest and right lateral posterior chest. 20:26 Musculoskeletal/extremity: ROM: limited active range of motion, limited passive range of motion, limited active range of motion due to pain, limited passive range of motion due to pain, in the lateral aspect of left knee, posterior aspect of left knee and left knee, Circulation is intact in all extremities. Sensation intact. Compartment Syndrome exam of affected extremity: is normal. Weight bearing: is unable to bear weight, DVT Exam: negative Homans' sign noted on exam, no appreciated bluish discoloration, no erythema, no increased warmth, pain, swelling, tenderness. Vital Signs: 20:07 BP 116 / 67; Pulse 77; Resp 18; Temp 99(O); Pulse Ox 95% on R/A; Weight 71.3 kg (R); lp1 Height 5 ft. 7 in. (170.18 cm); 21:57 BP 136 / 79; Pulse 72; Resp 16; Pulse Ox 98% on R/A; la1 22:30 BP 135 / 80; Pulse 70; Resp 18; Temp 98.7; Pulse Ox 99% ; ea 20:07 Body Mass Index 24.62 (71.30 kg, 170.18 cm) lp1 MDM: 20:11 Patient medically screened. [facility] 20:28 Data reviewed: vital signs, nurses notes, lab test result(s), EKG, radiologic studies, [facility] CT scan, plain films. 02/17 20:22 Order name: Basic Metabolic Panel [facility] 02/17 20:22 Order name: CBC with Diff [facility] 02/17 20:22 Order name: Creatinine for Radiology [facility] 02/17 20: Order name: Type And Screen; Complete Time: 21:27 [facility] 02/17 20: Order name: LFT's; Complete Time: 21:27 [facility] 02/17 20:22 Order name: Lipase; Complete Time: 21:27 [facility] 02/17 20:22 Order name: CT Traumagram (Head C Spine CAP wo con) [facility] 02/17 20:22 Order name: PT-INR; Complete Time: 21:27 [facility] 02/17 20:22 Order name: Chest Single View XRAY [facility] 02/17 20:25 Order name: Basic Metabolic Panel; Complete Time: 21:27 [facility] 02/17 20:25 Order name: CBC with Automated Diff; Complete Time: 21:27 [facility] 02/17 20:25 Order name: Creatinine (Radiology Only); Complete Time: 21:27 [facility] 02/17 20:23 Order name: Shoulder Right (2 View) XRAY [facility] 02/17 20:23 Order name: Knee Left 3 View XRAY; Complete Time: 22:14 [facility] 02/17 20:22 Order name: Labs collected and sent; Complete Time: 20:46 [facility] 02/17 20:23 Order name: Knee Right 3 View XRAY; Complete Time: 22:14 [facility] 02/17 20:23 Order name: INCENTIVE SPIROMETRY [facility] Administered Medications: 21:19 Drug: Phelan 10 mg-325 mg 1 tabs Route: PO; la1 21:59 Follow up: Response: No adverse reaction; Pain is decreased la1 22:29 Drug: Valium 5 mg Route: PO; ea 22:39 Follow up: Response: No adverse reaction; Medication administered at discharge. ea Disposition: 02/17/19 22:11 Discharged to Home. 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 - Condition is Fair. - Discharge Instructions: Back Pain, Adult, Rib Fracture, Dialysis, Kaposi Sarcoma, Back Pain, Adult, [id number], Fall Prevention in the Home, [id number], Rib Fracture, [id number], Hemodialysis. - Prescriptions for Valium 5 mg Oral Tablet - take 1 tablet by ORAL route every 8 hours As needed; 20 tablet. Tramadol 50 mg Oral Tablet - take 1 tablet by ORAL route every 8 hours as needed; 26 tablet. - Medication Reconciliation Form, Thank You Letter, Antibiotic Education, Prescription Opioid Use form. - Follow up: Private Physician; When: 2 - 3 days; Reason: Recheck today's complaints, Continuance of care, Re-evaluation by your physician. Follow up: Selwyn Richard; When: 2 - 3 days; Reason: Recheck today's complaints, Re-evaluation by your physician. Follow up: Lorne Washburn DO; When: 1 - 2 days; Reason: Recheck today's complaints, Continuance of care, Re-evaluation by your physician. - Problem is new. - Symptoms have improved. Signatures: Dispatcher [employer] EDMS Boston Johnson MD MD cha Pena, Laura RN RN lp1 Brad Israel RN RN la1 Kimber Duffy RN RN ea Corrections: (The following items were deleted from the chart) 22:13 22:11 02/17/2019 22:11 Discharged to Home. 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 Condition is Fair. Discharge Instructions: Back Pain, Adult, Kaposi Sarcoma, Back Pain, Adult, [id number], Fall Prevention in the Home, [id number]-[id number]. Prescriptions for Valium 5 mg Oral Tablet - take 1 tablet by ORAL route every 8 hours As needed; 20 tablet, Tramadol 50 mg Oral Tablet - take 1 tablet by ORAL route every 8 hours as needed; 26 tablet. and Forms are Medication Reconciliation Form, Thank You Letter, Antibiotic Education, Prescription Opioid Use. Follow up: Private Physician; When: 2 - 3 days; Reason: Recheck today's complaints, Continuance of care, Re-evaluation by your physician. Follow up: Selwyn Richard; When: 2 - 3 days; Reason: Recheck today's complaints, Re-evaluation by your physician. Problem is new. Symptoms have improved. [facility] 22:40 22:13 02/17/2019 22:11 Discharged to Home. 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 Condition is Fair. Discharge Instructions: Back Pain, Adult, Kaposi Sarcoma, Back Pain, Adult, [id number], Fall Prevention in the Home, Kpfw-dl-[id number], Rib Fracture, Dialysis, Rib Fracture, Tryo-uf-Zlzo, Hemodialysis. Prescriptions for Valium 5 mg Oral Tablet - take 1 tablet by ORAL route every 8 hours As needed; 20 tablet, Tramadol 50 mg Oral Tablet - take 1 tablet by ORAL route every 8 hours as needed; 26 tablet. and Forms are Medication Reconciliation Form, Thank You Letter, Antibiotic Education, Prescription Opioid Use. Follow up: Private Physician; When: 2 - 3 days; Reason: Recheck today's complaints, Continuance of care, Re-evaluation by your physician. Follow up: Selwyn Richard; When: 2 - 3 days; Reason: Recheck today's complaints, Re-evaluation by your physician. Follow up: Lorne Washburn; When: 1 - 2 days; Reason: Recheck today's complaints, Continuance of care, Re-evaluation by your physician. Problem is new. Symptoms have improved. [facility]
--- NOTE | 2019-02-17 22:16 | RAD REPORT ---
EXAM DESCRIPTION: RAD - Chest Single View - 02/17/2019 9:08 pm CLINICAL HISTORY: CHEST PAIN Chest pain. COMPARISON: Chest Single View dated 11/24/2018; Chest Pa And Lat (2 Views) dated 09/21/2018; Chest Sin gle View dated 09/20/2018; Chest Single View dated 07/28/2018 FINDINGS: Portable technique limits examination quality. Right lung base opacity with small right pleural effusion noted. Left lung is grossly clear. The hear t is mildly enlarged in size with sternotomy wires present.There is subtle lucency in the lateral rig ht sixth rib which may represent a nondisplaced fracture.
--- NOTE | 2019-02-17 22:18 | RAD REPORT ---
EXAM DESCRIPTION: RAD - Shoulder Right 2 View - 02/17/2019 9:08 pm CLINICAL HISTORY: PAIN COMPARISON: <Comparisons> FINDINGS: The glenohumeral and AC joints appear intact. Nondisplaced fracture of the lateral right s ixth rib is suspected.
[2019-02-17] MEDS ORDERED: DIAZEPAM 5 MG TABLET ONE (22:42)
[2019-02-17 23:16] VITALS: BP 135/80; TEMP 98.7; O2SAT 99
--- NOTE | 2019-02-18 10:05 | RAD REPORT ---
EXAM DESCRIPTION: Head C Spine Cap Wo Con CLINICAL HISTORY: 63 years Male Pain;Swelling COMPARISON: None TECHNIQUE: Images were obtained in axial, sagittal, and coronal planes. This exam was performed according to our departmental dose-optimization program which includes use of Automated Exposure Control, adjustment of the mA and/or kV according to patient size and/or use of i terative reconstruction technique. FINDINGS: CT brain: Ventricular system appears normal. No abnormal areas of increased or decreased a ttenuation are seen involving the brain parenchyma. No extra-axial fluid collections noted. No eviden ce for skull fracture. Unremarkable paranasal sinuses. Symmetric aeration mastoid air cells bilateral ly. CT cervical spine: Height of the vertebral bodies is intact. Satisfactory alignment articular facets. Marked anterior osteophyte formation C4-5, C5-6, and C6-7 levels. Marginal spur formation with neura l foraminal narrowing bilaterally also seen at these levels. Intact odontoid and predental space. Pre vertebral soft tissues appear normal. Intact ring C1. Posterior elements intact all levels. No focal disc protrusion seen. No significant narrowing of spinal canal any level. Intact occipital condyles. CT CHEST: No dilatation aortic root. Enlarged heart. No pericardial effusion. Moderate to large bila teral pleural effusions. No adenopathy. Airspace attenuation lower lobes bilaterally as well as right middle lobe. Increased pulmonary vascularity. Fractures lateral right sixth rib. Prior median sterno maria antonia. Valvular prosthesis. CT abdomen and pelvis: Enlarged liver and spleen. Spleen measures 13.9 cm in greatest dimension. Unre markable pancreas and adrenal glands bilaterally. Cholelithiasis. Atrophic kidneys bilaterally. Mild intraperitoneal fluid. Calcification abdominal aorta with no dilatation seen. Appendix not well ident ified however no secondary signs for appendicitis. No bowel obstruction, perforation, or inflammation . No acute osseous abnormality involving the lumbar spine or bony pelvis. Moderate anasarca. IMPRESSION: No acute intracranial abnormality. No evidence for hemorrhage, mass lesion, or large acu te infarction. No acute fracture or subluxation involving the cervical spine spine. Moderately severe multilevel ost eoarthritic change. Enlarged heart with marked congestive heart failure. Infiltrate and atelectatic change as well as pul monary congestion lungs bilaterally right greater than left. Contusion on right not excluded. Acute f ractures lateral left sixth rib. No pneumothorax. Hepatosplenomegaly. Atrophic kidneys bilaterally. Cholelithiasis. Electronically signed by: Juana Chairez MD 02/17/2019 9:58 PM CDT Due to temporary technical issues with the PACS/Fluency reporting system, reports are being signed by the in house radiologist as a courtesy to ensure prompt reporting. The interpreting radiologist is f ully responsible for the content of the report.
== END 2019-02-17 22:40 | disposition home or self-care (01) ==
LOC: ER 19:55
DX: S80.02XA Contusion of left knee, initial encounter (principal); S80.01XA Contusion of right knee, initial encounter; S29.012A Strain of muscle and tendon of back wall of thorax, initial encounter; S29.011A Strain of muscle and tendon of front wall of thorax, initial encounter; S22.31XA Fracture of one rib, right side, initial encounter for closed fracture; R07.9 Chest pain, unspecified; E87.6 Hypokalemia; D63.1 Anemia in chronic kidney disease; B20 Human immunodeficiency virus [HIV] disease; C46.1 Kaposi's sarcoma of soft tissue; E11.22 Type 2 diabetes mellitus with diabetic chronic kidney disease; N18.6 End stage renal disease; J91.8 Pleural effusion in other conditions classified elsewhere; Z79.01 Long term (current) use of anticoagulants; Z79.82 Long term (current) use of aspirin; Z88.5 Allergy status to narcotic agent; Z95.2 Presence of prosthetic heart valve; Z99.2 Dependence on renal dialysis
CPT/HCPCS: 36415; 70450; 71045; 71250; 72125; 80048; 80076; 83690; 85025; 85610; 86850; 86900; 86901; 99283

== ENCOUNTER 2019-03-08 21:26 | Observation (INO) | payer OTHER ==
--- OUTSIDE RECORDS SUMMARY | 2019-03-08 21:29 | XMS REPORT ---
:1955 Author Organization [facility] Address Unavailable , Allergies, Adverse [...] Patient Date Date Name Instruction AMLODIPINE AMLODIPINE 91917320853 Active Mo Active BESYLATE 10 MG BESYLATE Dicks OD ORAL TABLET CALCIUM ACETATE CALCIUM ACETATE 30403723667 Active Mo Active (PHOS BINDER) (PHOS BINDER) Dicks OD 667 MG ORAL CAPSULE CRESTOR 5 MG ROSUVASTATIN 54993004329 Active Mo Active ORAL TABLET CALCIUM Dicks OD EPIVIR SOLUTION LAMIVUDINE SOLN 87142997803 Active Mo Active Dicks OD ISENTRESS RALTEGRAVIR 34516492854 Active Mo Active TABLET POTASSIUM TABS Dicks OD KALETRA TABLET LOPINAVIR-RITONAVI 07465989317 Active Mo Active R TABS Dicks OD LAMIVUDINE LAMIVUDINE TABS 25983770602 Active Mo Active TABLET Dicks OD PROAIR HFA ALBUTEROL SULFATE 27952812439 Active Mo Active AEROSOL AERS Dicks OD SOLUTION PEDRO-EAMON RX B-COMPLEX W/ C & 40980005419 Active Mo Active TABLET FOLIC ACID TABS Dicks OD VITAMIN D2 ERGOCALCIFEROL 80086853841 Active Mo Active TABLET TABS Dicks OD Diagnostic Results Date Name Value Unit Range Description Append: Eye Exam - Hematology T-helper cells (CD4) count 602 uL Append: Eye Exam - Serology HIV-1RNA, serum, by PCR, quantitative 20 {Copies}/mL Procedures Code Procedure Name Date Entry Date Standard Description CPT-73417 Dispensing Visit (UNLIVSTED OPHTHALMOLOGICAL 10:14:39 CDT SERVICE/PROCEDURE) CPT-21116 Est Patient Comprehensive Opt - 61555 15:29:32 CDT CPT-33099 New Patient Intermediate Opt - 77438 14:28:41 CDT
[2019-03-08] MEDS ORDERED: ALBUTEROL 2.5 MG/3 ML NEB SOL ONE (22:11)
[2019-03-08 22:33] LABS: Basophils % 0.8 % (0-1.3); Eosinophils % 2.7 % (0-4.4); Hematocrit 33.2 % (39.6-49.0); Lymphocytes % 20.1 % (15.3-44.8); MPV 7.2 fL (7.6-11.3); Monocytes % 16.8 % (3.3-12.3); RBC Red Blood Cell Count 3.45 M/uL (4.33-5.43)
[2019-03-08 22:34] LABS: Protime INR 1.34
[2019-03-08 23:13] LABS: ALT/SGPT 19 U/L (12-78); AST/SGOT 28 U/L (15-37); Alkaline Phosphatase 105 U/L (45-117); BUN Blood Urea Nitrogen 49 mg/dL (7-18); Bicarbonate 29 mmol/L (21-32); Bilirubin Direct 0.3 mg/dL (0-0.2); Bilirubin Total 0.7 mg/dL (0.2-1.0); Creatine Phosphokinase 71 U/L (39-308); Glucose Level 99 mg/dL (74-106); Lipase 302 U/L (73-393); Magnesium 2.2 mg/dL (1.8-2.4); NT PRO-BNP 54677 pg/mL (<125); Potassium 4.1 mmol/L (3.5-5.1); Sodium Level 136 mmol/L (136-145); Troponin (Emerg Dept Use Only) < 0.02 ng/mL (0.0-0.045)
[2019-03-08 23:22] LABS: Blood Morphology Comment NOT SEEN (NOT SEEN); Platelet Estimate ADEQ
--- NOTE | 2019-03-09 01:34 | ER ---
Nurse's Notes [facility] Name: Salvatore Goldman Age: 63 yrs Sex: Male : 1955 Arrival Date: 03/08/2019 Time: 21:27 Bed 20 Private MD: Diagnosis: Acute Shortness of Breath;Acute Right sided pneumonia;CHF Presentation: 03/08 21:32 Presenting complaint: Patient states: When I breathe I have a bubbling sensation and I la1 am worried I have fluid in my lungs. Transition of care: patient was not received from another setting of care. Onset of symptoms was March 08, 2019. Risk Assessment: Do you want to hurt yourself or someone else? Patient reports no desire to harm self or others. Initial Sepsis Screen: Does the patient meet any 2 criteria? No. Patient's initial sepsis screen is negative. Does the patient have a suspected source of infection? No. Patient's initial sepsis screen is negative. Care prior to arrival: None. 21:32 Method Of Arrival: Wheelchair la1 21:32 Acuity: NARDA 3 la1 Triage Assessment: 21:41 General: Appears in no apparent distress. uncomfortable. Respiratory: Reports shortness cc3 of breath at rest on exertion Onset: The symptoms/episode began/occurred today, the patient has moderate shortness of breath. Historical: - Allergies: 21:32 codeine sulfate (DIZZINESS); la1 - Home Meds: 21:41 aspirin 81 mg Oral chew 1 tab once daily [Active]; atorvastatin 20 mg Oral tab 1 tab cc3 once daily [Active]; docusate sodium 100 mg Oral tab 1 tab 2 times per day [Active]; Isentress 400 mg Oral tab 1 tab 2 times per day [Active]; Kaletra 200-50 mg Oral tab 2 tabs 2 times per day [Active]; lamivudine 10 mg/mL Oral soln 2.5 mL once daily [Active]; metoprolol tartrate 25 mg Oral tab 1 tab once daily [Active]; Vitamin D Oral 23623 unit WEEKLY [Active]; warfarin 5 mg Oral tab 1 tab once daily [Active]; - PMHx: 21:32 Cirrhosis; Diabetes - NIDDM; Dialysis; heart valve; Hepatitis; HIV; Hyperlipidemia; la1 Karposi Sarcoma (left leg); kidney failure; 21:41 L arm HD access; cc3 - Immunization history:: Adult Immunizations up to date. - Social history:: Smoking status: Patient/guardian denies using tobacco. - Ebola Screening: : No symptoms or risks identified at this time. - Family history:: not pertinent. - Hospitalizations: : No recent hospitalization is reported. Screenin:41 Abuse screen: Denies threats or abuse. Denies injuries from another. Nutritional cc3 screening: No deficits noted. Tuberculosis screening: No symptoms or risk factors identified. Fall Risk Ambulatory Aid- None/Bed Rest/Nurse Assist (0 pts). Gait- Normal/Bed Rest/Wheelchair (0 pts) Mental Status- Oriented to own ability (0 pts). Assessment: 21:41 General: Appears in no apparent distress. uncomfortable, Behavior is calm, cooperative, cc3 appropriate for age. Pain: Denies pain. Neuro: Level of Consciousness is awake, alert, obeys commands, Oriented to person, place, time, situation, Appropriate for age. Cardiovascular: Capillary refill < 3 seconds Patient's skin is warm and dry. Rhythm is regular. Respiratory: Airway is patent Respiratory effort is even, unlabored, Respiratory pattern is regular, symmetrical, Breath sounds are diminished in right side. GI: Abdomen is round non-distended. : No signs and/or symptoms were reported regarding the genitourinary system. EENT: No signs and/or symptoms were reported regarding the EENT system. Derm: Skin is intact, is fragile, Skin is normal, black. Musculoskeletal: Circulation, motion, and sensation intact. Range of motion: intact in all extremities. 22:18 Reassessment: Patient appears in no apparent distress at this time. Patient and/or cc3 family updated on plan of care and expected duration. Pain level reassessed. Patient is alert, oriented x 3, equal unlabored respirations, skin warm/dry/pink. 23:45 Reassessment: Patient appears in no apparent distress at this time. Patient and/or cc3 family updated on plan of care and expected duration. Pain level reassessed. Patient is alert, oriented x 3, equal unlabored respirations, skin warm/dry/pink. Patient denies pain at this time. 03/09 00:16 Reassessment: Patient appears in no apparent distress at this time. Patient and/or cc3 family updated on plan of care and expected duration. Pain level reassessed. Patient is alert, oriented x 3, equal unlabored respirations, skin warm/dry/pink. 01:47 Reassessment: Patient appears in no apparent distress at this time. Patient and/or cc3 family updated on plan of care and expected duration. Pain level reassessed. Patient is alert, oriented x 3, equal unlabored respirations, skin warm/dry/pink. Patient came back from CT scan department, awaiting result. Patient denies pain at this time. 02:25 Reassessment: Patient appears in no apparent distress at this time. Patient and/or cc3 family updated on plan of care and expected duration. Pain level reassessed. Patient is alert, oriented x 3, equal unlabored respirations, skin warm/dry/pink. Room available in [facility], called for report but as per charge nurse Julieta the nurse who will receive will just call me back. 03:00 Reassessment: Patient appears in no apparent distress at this time. Patient and/or cc3 family updated on plan of care and expected duration. Pain level reassessed. Patient is alert, oriented x 3, equal unlabored respirations, skin warm/dry/pink. Called again telemetry unit but as per charge nurse Julieta the nurse is still busy and she will just call me back. 03:10 Reassessment: Patient appears in no apparent distress at this time. Patient and/or cc3 family updated on plan of care and expected duration. Pain level reassessed. Patient is alert, oriented x 3, equal unlabored respirations, skin warm/dry/pink. LAURYN Manriquez called and report handed over to her for continuity of care and management. Patient denies pain at this time. 03:28 Reassessment: Azithromycin completed and patient complains of right arm and elbow cc3 itchiness but no rashes, Dr. Jane informed no new orders made. Patient left ER for admission vitally stable by wheelchair escorted by [employer]. No valuables left in the patient's room. Patient denies pain at this time. Vital Signs: 03/08 21:33 BP 133 / 74; Pulse 85; Resp 16; Temp 98.6(TE); Pulse Ox 100% on R/A; Weight 70.31 kg; la1 Height 5 ft. 7 in. (170.18 cm); 22:39 BP 143 / 84; Pulse 81; Resp 20 S; Pulse Ox 97% on R/A; cc3 23:45 BP 141 / 76; Pulse 80; Resp 18 S; Pulse Ox 100% on R/A; cc3 03/09 00:15 BP 134 / 76; Pulse 80; Resp 18 S; Pulse Ox 100% on R/A; cc3 01:00 BP 160 / 89; Pulse 82; Resp 16 S; Pulse Ox 98% on R/A; cc3 02:15 BP 138 / 79; Pulse 82; Resp 18 S; Pulse Ox 99% on R/A; cc3 03:00 BP 153 / 77; Pulse 82; Resp 19 S; Pulse Ox 100% on R/A; cc3 03/08 21:33 Body Mass Index 24.28 (70.31 kg, 170.18 cm) la1 ED Course: 03/08 21:27 Patient arrived in ED. ds1 21:32 Arm band placed on right wrist. la1 21:33 Triage completed. la1 21:40 Phuc Dye MD is Attending Physician. wa 21:41 Yoon Mota is Primary Nurse. cc3 21:41 Patient has correct armband on for positive identification. Placed in gown. Bed in low cc3 position. Call light in reach. Side rails up X2. surveillance monitor on. Pulse ox on. NIBP on. 22:11 XRAY CXR (1 view) In Process Unspecified. EDMS 22:24 Initial lab(s) drawn, by me, First set of blood cultures drawn. mt 22:26 Missed attempt(s): 22 gauge in right forearm. mt 23:21 Notified ED physician of a critical lab result(s). Creat 5.73. ak1 03/09 01:15 Inserted saline lock: 20 gauge in right forearm, using aseptic technique. cc3 01:32 America Jane MD is Hospitalizing Provider. wa 01:54 CT Chest Wo Con In Process Unspecified. EDMS 03:10 No provider procedures requiring assistance completed. Patient admitted, IV remains in cc3 place. Administered Medications: 03/08 21:55 Drug: Albuterol 1.25 mg Route: Inhalation; cc3 03/09 01:45 Drug: Rocephin - (cefTRIAXone) 2 grams Route: IVPB; Infused Over: 30 mins; Site: right cc3 forearm; 02:10 Follow up: Response: No adverse reaction; IV Status: Completed infusion; IV Intake: cc3 100ml 02:10 Drug: Zithromax 500 mg Route: IVPB; Infused Over: 1 hrs; Site: right forearm; cc3 03:20 Follow up: Response: No adverse reaction; IV Status: Completed infusion; IV Intake: cc3 250ml Intake: 02:10 IV: 100ml; Total: 100ml. cc3 03:20 IV: 250ml; Total: 350ml. cc3 Outcome: 01:33 Decision to Hospitalize by Provider. gladis 03:10 Admitted to Tele accompanied by tech, via stretcher, room 406, with chart, Report cc3 called to LAURYN Manriquez 03:10 Condition: stable 03:10 Instructed on the need for admit, Demonstrated understanding of instructions. 03:28 Patient left the ED. cc3 Signatures: Dispatcher [employer] Suki Meza ds1 Brad Israel RN RN la1 Krenek, Amber, RN RN ak1 Thompson, Moriah nj Phuc Dye MD MD wa Cordel, Charlene cc3 Corrections: (The following items were deleted from the chart) 02:39 07/07 21:32 PMHx: R arm fistula; anthony cc3
--- NOTE | 2019-03-09 01:34 | EDPHYS ---
Physician Documentation [facility] Name: Salvatore Goldman Age: 63 yrs Sex: Male : 1955 Arrival Date: 03/08/2019 Time: 21:27 Bed 20 Private MD: ED Physician Phuc Dye HPI: 03/09 05:03 This 63 yrs old Black Male presents to ER via Wheelchair with complaints of Breathing wa Difficulty. 05:03 The patient has shortness of breath at rest. Onset: The symptoms/episode began/occurred wa 2 day(s) ago. Duration: The symptoms are continuous, and are steadily getting worse. The patient's shortness of breath has no apparent modifying factors. Associated signs and symptoms: Pertinent positives: productive cough, Pertinent negatives: dizziness, fever. Severity of symptoms: At their worst the symptoms were moderate in the emergency department the symptoms are unchanged. The patient has not experienced similar symptoms in the past. The patient has not recently seen a physician. h/o HIV. on HAART meds. also on dialysis for ESRD. Historical: - Allergies: 03/08 21:32 codeine sulfate (DIZZINESS); la1 - Home Meds: 21:41 aspirin 81 mg Oral chew 1 tab once daily [Active]; atorvastatin 20 mg Oral tab 1 tab cc3 once daily [Active]; docusate sodium 100 mg Oral tab 1 tab 2 times per day [Active]; Isentress 400 mg Oral tab 1 tab 2 times per day [Active]; Kaletra 200-50 mg Oral tab 2 tabs 2 times per day [Active]; lamivudine 10 mg/mL Oral soln 2.5 mL once daily [Active]; metoprolol tartrate 25 mg Oral tab 1 tab once daily [Active]; Vitamin D Oral 11866 unit WEEKLY [Active]; warfarin 5 mg Oral tab 1 tab once daily [Active]; - PMHx: 21:32 Cirrhosis; Diabetes - NIDDM; Dialysis; heart valve; Hepatitis; HIV; Hyperlipidemia; la1 Karposi Sarcoma (left leg); kidney failure; 21:41 L arm HD access; cc3 - Immunization history:: Adult Immunizations up to date. - Social history:: Smoking status: Patient/guardian denies using tobacco. - Ebola Screening: : No symptoms or risks identified at this time. - Family history:: not pertinent. - Hospitalizations: : No recent hospitalization is reported. ROS: 03/09 05:04 Constitutional: Negative for fever, chills, and weight loss, Eyes: Negative for injury, wa pain, redness, and discharge, ENT: Negative for injury, pain, and discharge, Neck: Negative for injury, pain, and swelling, Abdomen/GI: Negative for abdominal pain, nausea, vomiting, diarrhea, and constipation, Back: Negative for injury and pain, : Negative for injury, bleeding, discharge, and swelling, MS/Extremity: Negative for injury and deformity, Skin: Negative for injury, rash, and discoloration, Neuro: Negative for headache, weakness, numbness, tingling, and seizure, Psych: Negative for depression, anxiety, suicide ideation, homicidal ideation, and hallucinations. Cardiovascular: Positive for Negative for chest pain, edema. Respiratory: Positive for cough, shortness of breath. All other systems are negative. Exam: 05:05 Constitutional: This is a well developed, well nourished patient who is awake, alert, wa and in no acute distress. Head/Face: Normocephalic, atraumatic. Eyes: Pupils equal round and reactive to light, extra-ocular motions intact. Lids and lashes normal. Conjunctiva and sclera are non-icteric and not injected. Cornea within normal limits. Periorbital areas with no swelling, redness, or edema. ENT: Nares patent. No nasal discharge, no septal abnormalities noted. Tympanic membranes are normal and external auditory canals are clear. Oropharynx with no redness, swelling, or masses, exudates, or evidence of obstruction, uvula midline. Mucous membranes moist. Neck: Trachea midline, no thyromegaly or masses palpated, and no cervical lymphadenopathy. Supple, full range of motion without nuchal rigidity, or vertebral point tenderness. No Meningismus. Chest/axilla: Normal chest wall appearance and motion. Nontender with no deformity. No lesions are appreciated. Abdomen/GI: Soft, non-tender, with normal bowel sounds. No distension or tympany. No guarding or rebound. No evidence of tenderness throughout. Back: No spinal tenderness. No costovertebral tenderness. Full range of motion. Skin: Warm, dry with normal turgor. Normal color with no rashes, no lesions, and no evidence of cellulitis. MS/ Extremity: Pulses equal, no cyanosis. Neurovascular intact. Full, normal range of motion. Neuro: Awake and alert, GCS 15, oriented to person, place, time, and situation. Cranial nerves II-XII grossly intact. Motor strength 5/5 in all extremities. Sensory grossly intact. Cerebellar exam normal. Normal gait. Psych: Awake, alert, with orientation to person, place and time. Behavior, mood, and affect are within normal limits. 05:05 Cardiovascular: Rate: normal, Rhythm: regular, Pulses: no pulse deficits are appreciated, Heart sounds: normal, Edema: is not appreciated, JVD: is not appreciated. 05:05 Respiratory: the patient does not display signs of respiratory distress, Respirations: normal, Breath sounds: decreased breath sounds, that are moderate, are heard in the right posterior middle lobe and right posterior lower lobe. 05:05 Respiratory: Respiratory rate: nml ut Vital Signs: 03/08 21:33 BP 133 / 74; Pulse 85; Resp 16; Temp 98.6(TE); Pulse Ox 100% on R/A; Weight 70.31 kg; la1 Height 5 ft. 7 in. (170.18 cm); 22:39 BP 143 / 84; Pulse 81; Resp 20 S; Pulse Ox 97% on R/A; cc3 23:45 BP 141 / 76; Pulse 80; Resp 18 S; Pulse Ox 100% on R/A; cc3 03/09 00:15 BP 134 / 76; Pulse 80; Resp 18 S; Pulse Ox 100% on R/A; cc3 01:00 BP 160 / 89; Pulse 82; Resp 16 S; Pulse Ox 98% on R/A; cc3 02:15 BP 138 / 79; Pulse 82; Resp 18 S; Pulse Ox 99% on R/A; cc3 03:00 BP 153 / 77; Pulse 82; Resp 19 S; Pulse Ox 100% on R/A; cc3 03/08 21:33 Body Mass Index 24.28 (70.31 kg, 170.18 cm) la1 MDM: 03/08 21:40 Patient medically screened. ut 03/09 05:06 Differential diagnosis: Bronchitis CHF exacerbation, Chronic Obstructive Pulmonary wa Disease Myocardial Infarction pneumonia, Pneumothorax pulmonary edema, reactive airway disease, Unstable Angina. Data reviewed: vital signs, nurses notes, lab test result(s), EKG, radiologic studies. Test interpretation: by ED physician or midlevel provider: CXR noted for R LL pna with effusion. 05:06 Test interpretation: by ED physician or midlevel provider: HR: 84. nml sinus. nml axis. wa nml intervals. no acute ischemic change. Response to treatment: the patient's symptoms have mildly improved after treatment. Physician consultation: America Jane MD. ED course: IV abx given. pt admitted for further eval of PNA. 03/08 21:47 Order name: Blood Culture Adult (2) ut 03/08 21:47 Order name: BMP ut 03/08 21:47 Order name: CBC with Diff ut 03/08 21:47 Order name: CPK 03/08 21:47 Order name: Hepatic Function ut 03/08 21:47 Order name: Lipase ut 03/08 21:47 Order name: Magnesium ut 03/08 21:47 Order name: NT PRO-BNP; Complete Time: 00:57 ut 03/08 21:47 Order name: PT-INR; Complete Time: 00:57 ut 03/08 21:47 Order name: Troponin (emerg Dept Use Only); Complete Time: 00:57 ut 03/08 21:48 Order name: Blood Culture [facility] 03/08 21:48 Order name: Basic Metabolic Panel; Complete Time: 00:57 [facility] 03/08 21:48 Order name: CBC with Automated Diff; Complete Time: 00:57 [facility] 03/08 21:48 Order name: Creatine Phosphokinase; Complete Time: 00:57 [facility] 03/08 21:47 Order name: XRAY CXR (1 view) ut 03/08 21:47 Order name: EKG; Complete Time: 21:49 ut 03/08 21:47 Order name: Cardiac monitoring; Complete Time: 22:27 ut 03/08 21:47 Order name: EKG - Nurse/Tech; Complete Time: 22:02 ut 03/08 21:47 Order name: IV Saline Lock; Complete Time: 01:55 ut 03/08 21:47 Order name: Labs collected and sent; Complete Time: 22:27 ut 03/08 21:47 Order name: O2 Per Protocol; Complete Time: 22:02 ut 03/08 21:47 Order name: O2 Sat Monitoring; Complete Time: 22:02 ut 03/08 21:48 Order name: Liver (Hepatic) Function; Complete Time: 00:57 EDMS 03/08 21:48 Order name: Lipase; Complete Time: 00:57 EDMS 03/08 21:48 Order name: Magnesium; Complete Time: 00:57 EDMS 03/08 23:01 Order name: Manual Differential; Complete Time: 00:57 EDMS 03/09 00:58 Order name: CT Chest Wo Adriel griffith Administered Medications: 03/08 21:55 Drug: Albuterol 1.25 mg Route: Inhalation; cc3 03/09 01:45 Drug: Rocephin - (cefTRIAXone) 2 grams Route: IVPB; Infused Over: 30 mins; Site: right cc3 forearm; 02:10 Follow up: Response: No adverse reaction; IV Status: Completed infusion; IV Intake: cc3 100ml 02:10 Drug: Zithromax 500 mg Route: IVPB; Infused Over: 1 hrs; Site: right forearm; cc3 03:20 Follow up: Response: No adverse reaction; IV Status: Completed infusion; IV Intake: cc3 250ml Disposition: 03/09/19 01:33 Hospitalization ordered by America Jane for Inpatient Admission. Preliminary diagnosis are Acute Shortness of Breath, Acute Right sided pneumonia, CHF. - Bed requested for Telemetry/MedSurg (Inpatient). - Status is Inpatient Admission. cc3 - Condition is Stable. - Problem is new. - Symptoms have improved. UTI on Admission? No Signatures: Dispatcher [employer] EDUT Marielle Sky RN RN mw Attema, Lee, RN RN [facility] Phuc Dye MD MD wa Cordel, Charlene 3 Corrections: (The following items were deleted from the chart) 01:51 01:33 Hospitalization Ordered by America Jane MD for Inpatient Admission. Preliminary matti diagnosis is Acute Shortness of Breath; Acute Right sided pneumonia; CHF. Bed requested for Telemetry/MedSurg (Inpatient). Status is Inpatient Admission. Condition is Stable. Problem is new. Symptoms have improved. UTI on Admission? No. gladis 02:39 03/08 21:32 PMHx: R arm fistula; la1 cc3 03/09 03:28 01:51 03/09/2019 01:33 Hospitalization Ordered by America Jane MD for Inpatient cc3 Admission. Preliminary diagnosis is Acute Shortness of Breath; Acute Right sided pneumonia; CHF. Bed requested for Telemetry/MedSurg (Inpatient). Status is Inpatient Admission. Condition is Stable. Problem is new. Symptoms have improved. UTI on Admission? No. mw
[2019-03-09] MEDS ORDERED: NA CHLORIDE 0.9% 250 ML ONE (01:35)
[2019-03-09] MEDS ORDERED: NA CHLORIDE 0.9% 100 ML IV ONE (01:35)
[2019-03-09] MEDS ORDERED: CEFTRIAXONE 1000 MG/VIAL ONE (01:35)
[2019-03-09] MEDS ORDERED: AZITHROMYCIN 500 MG INJ IVPB ONE (01:35)
--- NOTE | 2019-03-09 03:16 | P.HP ---
Certification for Inpatient Patient admitted to: Observation With expected LOS: <2 Midnights Practitioner: I am a practitioner with admitting privileges, knowledge of patient current condition, hospital course, and medical plan of care. Services: Services provided to patient in accordance with Admission requirements found in Title 42 Section 412.3 of the Code of Federal Regulations Patient History Date of Service: 03/09/19 Reason for admission: dyspnea, ESRD on HD History of Present Illness: Mr Goldman is a 63 years old male with history of HIV, Hep C, DM II, ESRD on HD, he has chronic right side pleural effusion, who came to ED complaining of SOB with productive cough, yellowish secretions, which is not new. However, he said that has some "bubbling" noise in his chest when he cough. No fever or chills. Lab work shows normal WBC count, O2 sat in ER 100% on RA, afebrile. CT chest shows signs consistent with chronic pleural effusion, mention empyema not excluded, however clinically unlikely. Allergies codeine Allergy (Verified 05/17/18 03:42) Itching Home medications list reviewed: Yes Home Medications: Lamivudine [Epivir] 2.5 ml PO BID 02/18/18 Atorvastatin Calcium [Lipitor*] 20 mg PO BEDTIME 05/17/18 Cholecalciferol (Vitamin D3) [Vitamin D3] 50,000 units PO EVERY 7TH DAY Lopinavir/Ritonavir [Kaletra 200-50 MG Tablet*] 2 tab PO BID 05/17/18 Metoprolol Succinate [Toprol Xl*] 25 mg PO DAILY 05/17/18 Raltegravir Potassium [Isentress*] 400 mg PO BID 05/17/18 Warfarin Sodium [Coumadin*] 12.5 mg PO DAILY 5 PM 05/17/18 Aspirin Chewable [Aspirin Chewable*] 81 mg PO DAILY 05/18/18 Docusate Sodium [Dok] 100 mg PO BID 05/18/18 Folic Acid/Vit Bcomp,C [Daija-Kodak Tablet] 1 tab PO DAILY 05/18/18 Albuterol Sulfate [Proair Hfa] 2 puff IH TID PRN #1 [email or web address] 09/21/18 Amox/Clavulanate [Augmentin 500-125 mg Tab*] 500 mg PO BID #14 tab 09/21/18 Mometasone/Formoterol [Dulera 200 Mcg/5 Mcg Inhaler] 2 inh IH BID 30 Days #1 [email or web address] 09/21/18 - Past Medical/Surgical History Diabetic: Yes -: HIV-AIDS -: Hepatitis C -: DM -: HTN -: Karposi Sarcoma of the LLE -: Previous heart valve replacement on chronic anti coagulation therapy -: Cirrhosis -: ESRD on HD -: AV fistula to the LUE -: Mitral Valve Replacement, mechanical Psychosocial/ Personal History: He has been with his current partner for years, 7-children, Disabled. - Family History Father -: Diabetes, Other (see notes) Notes: bilateral amputee, gout Mother -: Heart disease, Hypertension, Stroke - Social History Smoking Status: Former smoker Alcohol use: No CD- Drugs: No Caffeine use: Yes Place of Residence: Home Review of Systems 10-point ROS is otherwise unremarkable Physical Examination - Physical Exam General: Alert, In no apparent distress HEENT: Atraumatic, PERRLA, Mucous membr. moist/pink, EOMI, Sclerae nonicteric Neck: Supple, 2+ carotid pulse no bruit, No LAD, Without JVD or thyroid abnormality Respiratory: Clear to auscultation bilaterally, Diminished (on right base) Cardiovascular: Regular rate/rhythm, Normal S1 S2 Gastrointestinal: Normal bowel sounds, No tenderness Musculoskeletal: No tenderness Integumentary: No rashes Neurological: Normal speech, Normal strength at 5/5 x4 extr, Normal tone, Normal affect Lymphatics: No axilla or inguinal lymphadenopathy - Studies Laboratory Data (last 24 hrs) 03/08/19 22:24: PT 15.6 H, INR 1.34 03/08/19 22:24: WBC 5.0, Hgb 10.9 L, Hct 33.2 L, Plt Count 122 L 03/08/19 22:24: Sodium 136, Potassium 4.1, BUN 49 H, Creatinine 5.73 H*, Glucose 99, Magnesium 2.2, Total Bilirubin 0.7, AST 28, ALT 19, Alkaline Phosphatase 105, Lipase 302 Assessment and Plan - Problems (Diagnosis) (1) ESRD on hemodialysis Onset Date: 09/22/18 Current Visit: No Status: Acute (2) Volume overload Onset Date: 02/18/18 Current Visit: No Status: Acute Qualifiers: Hypervolemia type: other Qualified Code(s): E87.79 - Other fluid overload (3) Diabetes mellitus Onset Date: 03/16/16 Current Visit: No Status: Chronic Qualifiers: Diabetes mellitus type: type 2 Diabetes mellitus buttermaker insulin use: without buttermaker use Diabetes mellitus complication status: without complication Qualified Code(s): E11.9 - Type 2 diabetes mellitus without complications (4) HIV (human immunodeficiency virus infection) Onset Date: 03/16/16 Current Visit: No Status: Chronic Qualifiers: HIV symptom status: asymptomatic Qualified Code(s): Z21 - Asymptomatic human immunodeficiency virus [HIV] infection status (5) HTN (hypertension) Onset Date: 03/16/16 Current Visit: No Status: Chronic Qualifiers: Hypertension type: essential hypertension (6) Hepatitis C Onset Date: 03/16/16 Current Visit: No Status: Chronic Qualifiers: Viral hepatitis chronicity: chronic Hepatic coma status: without hepatic coma Qualified Code(s): B18.2 - Chronic viral hepatitis C - Plan Will admit the patient due to SOB and cough, likely due to volume overload, no obvious clinical or laboratory signs of acute infection. Will order procalcitonin though. Will consult Dr Washburn for HD orders, consult Dr Richard to evaluate his chronic right plerual effusion. - Advance Directives Does patient have a Living Will: No Does patient have a Durable POA for Healthcare: No - Code Status/Comfort Care Code Status Assessed: Yes Code Status: Full Code
[2019-03-09] MEDS ORDERED: ALBUTEROL 2.5 MG/3 ML NEB SOL NEB PRN (03:32)
[2019-03-09] MEDS ORDERED: ONDANSETRON 4 MG/2 ML VIAL IV PRN (03:32)
[2019-03-09] MEDS ORDERED: IPRATROPIUM BROM 0.5MG/2.5ML NEB PRN (03:32)
[2019-03-09 04:10] VITALS: BMI 25.0
[2019-03-09 05:11] LABS: Absolute Lymphocytes (CBC) 1.1 K/uL (0.7-4.9); Basophils % 0.8 % (0-1.3); Eosinophils % 2.9 % (0-4.4); Hematocrit 33.2 % (39.6-49.0); Lymphocytes % 22.8 % (15.3-44.8); MPV 8.2 fL (7.6-11.3); RBC Red Blood Cell Count 3.48 M/uL (4.33-5.43)
[2019-03-09 05:16] LABS: Monocytes % 17.8 % (3.3-12.3)
[2019-03-09 05:24] LABS: Potassium 3.9 mmol/L (3.5-5.1)
[2019-03-09] MEDS ORDERED: TRAMADOL HCL 50 MG TAB PO PRN (07:29)
[2019-03-09] MEDS ORDERED: HYDROCODONE/APAP 5/325 MG TAB PO PRN (07:29)
[2019-03-09] MEDS: CA ACETATE 667 MG CAP PO SCH ×2 (07:49→16:11)
--- NOTE | 2019-03-09 08:48 | RAD REPORT ---
EXAM DESCRIPTION: RAD - Chest Single View - 03/08/2019 10:10 pm CLINICAL HISTORY: Shortness of breath COMPARISON: February 17 TECHNIQUE: AP portable chest image was obtained 2204 hours . FINDINGS: Chronic pleural and parenchymal opacification in the mid and lower right lung field not cl early different from the comparison examination. No acute left lung field finding. Right tracheal carlton ft is stable. Sternotomy wires are in place. Heart size is prominent but stable. Vasculature also pro minent but stable. No measurable pleural effusion and no pneumothorax. No acute bony abnormality seen . No acute aortic findings suspected. IMPRESSION: Chronic pleural and parenchymal opacification of the mid and lower right lung field stab le from February 17. Mild cardiomegaly and mild vascular engorgement stable from prior imaging. A mild failure or volume o verload could be masked by the underlying chronic disease.
[2019-03-09] MEDS ORDERED: LAMIVUDINE PO SCH (09:00)
[2019-03-09] MEDS ORDERED: ASPIRIN 81 MG CHEWABLE TABLET PO SCH (09:00)
[2019-03-09] MEDS ORDERED: MULTIVITAMINS,THERAPEUT 1 TAB PO SCH (09:00)
[2019-03-09] MEDS ORDERED: RALTEGRAVIR POTASSIUM 400 MG TABLET PO SCH (09:00)
[2019-03-09] MEDS ORDERED: CARVEDILOL 12.5 MG TAB PO SCH (09:00)
[2019-03-09] MEDS ORDERED: RITONAVIR PO SCH (09:00)
[2019-03-09] MEDS ORDERED: LOPINAVIR PO SCH (09:00)
--- NOTE | 2019-03-09 10:17 | RAD REPORT ---
EXAM DESCRIPTION: CT - Thorax Wo Adriel - 03/09/2019 3:55 am CLINICAL HISTORY: SOB COMPARISON: CT chest August 12, 2018 TECHNIQUE: Multiple helical axial tomographic images were obtained of the chest following administra tion of intravenous contrast per angiographic protocol. Coronal and sagittal reformatted images were obtained. This exam was performed according to our departmental dose-optimization program, which includes autom ated exposure control, adjustment of the mA and/or kV according to patient size and/or use of iterati ve reconstruction technique. FINDINGS: Thyroid gland: unremarkable. Axilla: unremarkable. Aorta: Mild aortic atherosclerosis is present. No evidence of aortic aneurysm. Mediastinum: A few borderline enlarged mediastinal lymph nodes are again noted appearing unchanged. Heart: Heart is mildly enlarged. Coronary artery atherosclerosis is demonstrated. Prosthetic mitral valve is demonstrated. Lungs/airways: Subsegmental atelectasis versus scarring in the right lung base is noted. No consolida tion. Airways are patent. Pleural spaces: Small right pleural effusion is demonstrated with associated pleural thickening. Ther e is a small left pleural effusion without obvious pleural thickening. No pneumothorax. Osseous: Sternotomy changes are present. There is a healing fracture of the right lateral sixth rib. There is a small gap within the right posterior seventh rib which may be postoperative related. Soft tissues: Unremarkable. Visualized abdomen: Spleen appears mildly enlarged. IMPRESSION: 1. Small right pleural effusion with associated pleural thickening suggestive of a chron ic effusion with underlying empyema not excluded. 2. Small left effusion. 3. Areas of atelectasis versus scarring in the right lung base. Electronically signed by: Florentin Estevez MD 03/09/2019 3:04 AM CDT Due to temporary technical issues with the PACS/Fluency reporting system, reports are being signed by the in house radiologist as a courtesy to ensure prompt reporting. The interpreting radiologist is f ully responsible for the content of the report.
--- NOTE | 2019-03-09 12:41 | P.CNS ---
Chief Complaint: dyspnea, ESRD on HD History of Present Illness: Patient is 63 years of age multiple medical problems, end-stage renal disease admitted with shortness of breath productive of the kids sputum he is nonverbal in respiratory distress and alert over is not cooperative CT scan shows chronic right-sided pleural effusion Allergies codeine Allergy (Verified 05/17/18 03:42) Itching Home Medications: Lamivudine [Epivir] 2.5 ml PO BID 02/18/18 Lopinavir/Ritonavir [Kaletra 200-50 MG Tablet*] 2 tab PO BID 05/17/18 Raltegravir Potassium [Isentress*] 400 mg PO BID 05/17/18 Warfarin Sodium [Coumadin*] 12.5 mg PO DAILY 5 PM 05/17/18 Aspirin Chewable [Aspirin Chewable*] 81 mg PO DAILY 05/18/18 Folic Acid/Vit Bcomp,C [Daija-Kodak Tablet] 1 tab PO DAILY 05/18/18 Calcium Acetate 1 cap PO BID 03/09/19 Carvedilol 1 tab PO BID 03/09/19 Hydrocodone/Acetaminophen [Hydrocodone-Acetamin 5-325 mg] 1 tab PO BID PRN 03/09 Vitamin D 50,000 Units 1 cap PO SEECOM 03/09/19 traMADol HCL [Ultram*] 1 tab PO Q8H 03/09/19 - Past Medical/Surgical History Diabetic: Yes -: HIV-AIDS -: Hepatitis C -: DM -: HTN -: [place] [facility] of the LLE -: Previous heart valve replacement on chronic anti coagulation therapy -: Cirrhosis -: ESRD on HD -: AV fistula to the LUE -: Mitral Valve Replacement, mechanical Psychosocial/ Personal History: He has been with his current partner for years, 7-children, Disabled. - Family History Father Medical History: Diabetes, Other (see notes) Notes: bilateral amputee Mother Medical History: Heart disease, Hypertension, Stroke - Social History Smoking Status: Unknown if ever smoked Alcohol use: No CD- Drugs: No Caffeine use: No Place of Residence: Home Review of Systems is unable to be obtained Physical Examination Temp Pulse Resp BP Pulse Ox 97.7 F 79 18 144/72 H 97 03/09/19 12:00 03/09/19 12:00 03/09/19 12:00 03/09/19 12:00 03/09/19 12:00 General: Alert, Unresponsive Respiratory: Crackles/rales Cardiovascular: Edema Gastrointestinal: Normal bowel sounds Musculoskeletal: No clubbing Integumentary: Other (Multiple decubitus ulcers) Laboratory Data (last 24 hrs) 03/08/19 22:24: PT 15.6 H, INR 1.34 03/08/19 22:24: WBC 5.0, Hgb 10.9 L, Hct 33.2 L, Plt Count 122 L 03/08/19 22:24: Sodium 136, Potassium 4.1, BUN 49 H, Creatinine 5.73 H*, Glucose 99, Magnesium 2.2, Total Bilirubin 0.7, AST 28, ALT 19, Alkaline Phosphatase 105, Lipase 302 - Problems (1) Shortness of breath Current Visit: Yes Status: Acute Plan: Patient is 63 years of age admitted with shortness of breath he has end-stage renal disease chronic right-sided effusion which seems to be improving probably loculated mildly anemic labs shows chronic renal failure pro calcitonin level is negative vital signs are stable oxygenation satisfactory he appears to be in respiratory distress will check his arterial blood gases no evidence of sepsis echo had shown congestive heart failure that was done in 2018 patient is on hemodialysis has HIV vital signs stable
--- NOTE | 2019-03-09 12:52 | EKG ---
Test Date: 2019-03-08 Test Time: 21:59:50 Corporate Tutor: BERENICE MEASUREMENT RESULTS: Intervals: Rate: 84 KS: 180 QRSD: 86 QT: 386 QTc: 456 [place]: P: 57 KS: 180 QRS: 85 T: 63 INTERPRETIVE STATEMENTS: Normal sinus rhythm Normal ECG Compared to ECG 11/24/2018 18:24:39 Left ventricular hypertrophy no longer present Electronically Signed On 03-09-19 12:49:41 CDT by Rafael Bedolla
[2019-03-09 14:36] LABS: Arterial Blood Carboxyhemoglob 2.1 % (0-1.5); Blood Gas Oxyhemoglobin 92.8 % (94-97); Blood O2 Saturation 95.3 % (92-98.5)
--- NOTE | 2019-03-09 15:35 | P.DS ---
Admission Date: 03/09/19 Discharge Date: 03/09/19 Primary Care Provider: Dr. Washburn Disposition: ROUTINE DISCHARGE Discharge Condition: GOOD Reason for Admission: dyspnea, ESRD on HD Consultations: Nephrology-Dr. Washburn Pulmonary-Dr. Richard Procedures: CT chest: FINDINGS: Thyroid gland: unremarkable. Axilla: unremarkable. Aorta: Mild aortic atherosclerosis is present. No evidence of aortic aneurysm. Mediastinum: A few borderline enlarged mediastinal lymph nodes are again noted appearing unchanged. Heart: Heart is mildly enlarged. Coronary artery atherosclerosis is demonstrated. Prosthetic mitral valve is demonstrated. Lungs/airways: Subsegmental atelectasis versus scarring in the right lung base is noted. No consolidation. Airways are patent. Pleural spaces: Small right pleural effusion is demonstrated with associated pleural thickening. There is a small left pleural effusion without obvious pleural thickening. No pneumothorax. Osseous: Sternotomy changes are present. There is a healing fracture of the right lateral sixth rib. There is a small gap within the right posterior seventh rib which may be postoperative related. Soft tissues: Unremarkable. Visualized abdomen: Spleen appears mildly enlarged. IMPRESSION: 1. Small right pleural effusion with associated pleural thickening suggestive of a chronic effusion 2. Small left effusion. 3. Areas of atelectasis versus scarring in the right lung base. Medical Problem List: Shortness of breast secondary to chronic right pleural effusion End-stage renal disease on hemodialysis HIV Hypertension Brief History of Present Illness: 63-year-old male presented to the emergency room with mild shortness of breath and cough. Patient was evaluated emergency room. Patient with underlying end-stage renal disease on hemodialysis, hypertension, HIV and chronic pleural effusion. CT scan revealed chronic pleural effusion. Patient was admitted for observation. Hospital Course: Patient with chronic right-sided pleural effusion. Patient seen and evaluated by pulmonology. No intervention was required. No evidence of pneumonia noted. Pro calcitonin and white count within normal range. Patient to continue with 1500 cc per day fluid restriction and dialysis as directed. Recommend follow up with pulmonology as an outpatient to further monitor. Recommend recheck chest x-ray in 2-4 weeks to monitor his progress. Patient with end-stage renal disease on hemodialysis. Patient will continue with his dialysis. Patient with hypertension. At discharge he will continue with his current medication-carvedilol. Patient with history of mechanical heart valve on chronic anti coagulation therapy. At discharge he will continue with Coumadin as directed. Recommend follow up with his PCP or nephrology to follow and adjust his Coumadin and monitor INR. Patient with HIV. Patient will continue with his medication. Recommend follow up with his HIV specialist as directed. Vital Signs/Physical Exam: Temp Pulse Resp BP Pulse Ox 97.7 F 79 18 144/72 H 97 03/09/19 12:00 03/09/19 12:00 03/09/19 12:00 03/09/19 12:00 03/09/19 12:00 General: Alert, In no apparent distress, Oriented x3, Cooperative HEENT: Atraumatic Neck: Supple Respiratory: Diminished (Slightly diminished to the right side) Cardiovascular: Normal pulses, Regular rate/rhythm Gastrointestinal: Normal bowel sounds, Soft and benign, Non-distended, No tenderness, No masses, No rebound, No guarding Musculoskeletal: No erythema, No tenderness, No warmth Integumentary: No tenderness/swelling, No erythema, No warmth, No cyanosis Neurological: Normal speech, Normal strength at 5/5 x4 extr, Normal tone, Normal affect Laboratory Data at Discharge: WBC 4.8 K/uL (4.3-10.9) 03/09/19 04:15 Hgb 11.1 g/dL (13.6-17.9) L 03/09/19 04:15 Hct 33.2 % (39.6-49.0) L 03/09/19 04:15 Plt Count 148 K/uL (152-406) L D 03/09/19 04:15 PT 15.6 SECONDS (9.5-12.5) H 03/08/19 22:24 INR 1.34 03/08/19 22:24 Sodium 137 mmol/L (136-145) 03/09/19 04:15 Potassium 3.9 mmol/L (3.5-5.1) 03/09/19 04:15 BUN 49 mg/dL (7-18) H 03/09/19 04:15 Creatinine 6.10 mg/dL (0.55-1.3) H* 03/09/19 04:15 Glucose 92 mg/dL (74-106) 03/09/19 04:15 Magnesium 2.2 mg/dL (1.8-2.4) 03/08/19 22:24 Total Bilirubin 0.7 mg/dL (0.2-1.0) 03/08/19 22:24 AST 28 U/L (15-37) 03/08/19 22:24 ALT 19 U/L (12-78) 03/08/19 22:24 Alkaline Phosphatase 105 U/L (45-117) 03/08/19 22:24 Lipase 302 U/L (73-393) 03/08/19 22:24 Home Medications: Lamivudine [Epivir] 2.5 ml PO BID 02/18/18 Lopinavir/Ritonavir [Kaletra 200-50 MG Tablet*] 2 tab PO BID 05/17/18 Raltegravir Potassium [Isentress*] 400 mg PO BID 05/17/18 Warfarin Sodium [Coumadin*] 12.5 mg PO DAILY 5 PM 05/17/18 Aspirin Chewable [Aspirin Chewable*] 81 mg PO DAILY 05/18/18 Folic Acid/Vit Bcomp,C [Daija-Kodak Tablet] 1 tab PO DAILY 05/18/18 Calcium Acetate 1 cap PO BID 03/09/19 Carvedilol 1 tab PO BID 03/09/19 Hydrocodone/Acetaminophen [Hydrocodone-Acetamin 5-325 mg] 1 tab PO BID PRN 03/09 Vitamin D 50,000 Units 1 cap PO SEECOM 03/09/19 traMADol HCL [Ultram*] 1 tab PO Q8H 03/09/19 Patient Discharge Instructions: 1. Patient will be discharged home. 2. Patient with chronic right-sided pleural effusion. Patient seen and evaluated by pulmonology. No intervention was required. No evidence of pneumonia noted. Pro calcitonin and white count within normal range. Patient to continue with 1500 cc per day fluid restriction and dialysis as directed. Recommend follow up with pulmonology as an outpatient to further monitor. Recommend recheck chest x-ray in 2-4 weeks to monitor his progress. 3. Patient with end-stage renal disease on hemodialysis. Patient will continue with his dialysis. 4. Patient with hypertension. At discharge he will continue with his current medication-carvedilol. 5. Patient with history of mechanical heart valve on chronic anti coagulation therapy. At discharge he will continue with Coumadin as directed. Recommend follow up with his PCP or nephrology to follow and adjust his Coumadin and monitor INR. 6. Patient with HIV. Patient will continue with his medication. Recommend follow up with his HIV specialist as directed. Diet: Renal Activity: Ad pedro Time spent managing pt's care (in minutes): 55
[2019-03-09 16:13] VITALS: O2SAT 99
[2019-03-09 16:35] VITALS: BP 153/86; TEMP 97.3
[2019-03-09] MEDS ORDERED: WARFARIN SODIUM 5 MG TAB PO SCH (17:00)
--- NOTE | 2019-03-09 19:59 | P.CNS ---
Date of Consult: 03/09/19 Reason for Consult: ESRD Requesting Physician: Scout Carr Primary Care Provider: Dr. Washburn Chief Complaint: dyspnea, ESRD on HD History of Present Illness: Mr Goldman is a 63 years old male with history of HIV, Hep C, DM II, ESRD on HD, he has chronic right side pleural effusion, who came to ED complaining of SOB with productive cough, yellowish secretions, which is not new. However, he said that has some "bubbling" noise in his chest when he cough. No fever or chills. Lab work shows normal WBC count, O2 sat in ER 100% on RA, afebrile. CT chest shows signs consistent with chronic pleural effusion, mention empyema not excluded, however clinically unlikely. Diagnosis: Acute Shortness of Breath;Acute Right sided pneumonia;CHF Presentation: 03/08 21:32 Presenting complaint: Patient states: When I breathe I have a bubbling sensation and I la1 am worried I have fluid in my lungs. Transition of care: patient was not received from another setting of care. Onset of symptoms was March 08, 2019. Risk Assessment: Do you want to hurt yourself or someone else? Patient reports no desire to harm self or others. Initial Sepsis Screen: Does the patient meet any 2 criteria? No. Patient's initial sepsis screen is negative. Does the patient have a suspected source of infection? No. Patient's initial sepsis screen is negative. Care prior to arrival: None. Allergies codeine Allergy (Verified 05/17/18 03:42) Itching Home medications list reviewed: Yes Home Medications: Lamivudine [Epivir] 2.5 ml PO BID 02/18/18 Lopinavir/Ritonavir [Kaletra 200-50 MG Tablet*] 2 tab PO BID 05/17/18 Raltegravir Potassium [Isentress*] 400 mg PO BID 05/17/18 Warfarin Sodium [Coumadin*] 12.5 mg PO DAILY 5 PM 05/17/18 Aspirin Chewable [Aspirin Chewable*] 81 mg PO DAILY 05/18/18 Folic Acid/Vit Bcomp,C [Daija-Kodak Tablet] 1 tab PO DAILY 05/18/18 Calcium Acetate 1 cap PO BID 03/09/19 Carvedilol 1 tab PO BID 03/09/19 Hydrocodone/Acetaminophen [Hydrocodone-Acetamin 5-325 mg] 1 tab PO BID PRN 03/09 Vitamin D 50,000 Units 1 cap PO SEECOM 03/09/19 traMADol HCL [Ultram*] 1 tab PO Q8H 03/09/19 - Past Medical/Surgical History Diabetic: Yes -: HIV-AIDS -: Hepatitis C -: DM -: HTN -: [place] [facility] of the LLE -: Previous heart valve replacement on chronic anti coagulation therapy -: Cirrhosis -: ESRD on HD -: AV fistula to the LUE -: Mitral Valve Replacement, mechanical Psychosocial/ Personal History: He has been with his current partner for years, 7-children, Disabled. - Family History Father Medical History: Diabetes, Other (see notes) Notes: bilateral amputee Mother Medical History: Heart disease, Hypertension, Stroke - Social History Smoking Status: Unknown if ever smoked Alcohol use: No CD- Drugs: No Caffeine use: No Place of Residence: Home Review of Systems 10-point ROS is otherwise unremarkable General: Weakness, Malaise Neurological: Weakness Physical Examination Temp Pulse Resp BP Pulse Ox 97.3 F 87 18 153/86 H 99 03/09/19 16:00 03/09/19 16:00 03/09/19 16:00 03/09/19 16:00 03/09/19 16:00 General: In no apparent distress, Cooperative Neck: Supple Respiratory: Clear to auscultation bilaterally Cardiovascular: Regular rate/rhythm, Edema Gastrointestinal: Soft and benign, Non-distended Musculoskeletal: No clubbing, No contractures Integumentary: No rashes Neurological: Normal speech Laboratory Data (last 24 hrs) 03/08/19 22:24: PT 15.6 H, INR 1.34 03/08/19 22:24: WBC 5.0, Hgb 10.9 L, Hct 33.2 L, Plt Count 122 L 03/08/19 22:24: Sodium 136, Potassium 4.1, BUN 49 H, Creatinine 5.73 H*, Glucose 99, Magnesium 2.2, Total Bilirubin 0.7, AST 28, ALT 19, Alkaline Phosphatase 105, Lipase 302 Imagings Data: EXAM DESCRIPTION: CT - Thorax Wo Con - 03/09/2019 3:55 am CLINICAL HISTORY: SOB COMPARISON: CT chest August 12, 2018 TECHNIQUE: Multiple helical axial tomographic images were obtained of the chest following administration of intravenous contrast per angiographic protocol. Coronal and sagittal reformatted images were obtained. This exam was performed according to our departmental dose-optimization program , which includes automated exposure control, adjustment of the mA and/or kV according to patient size and/or use of iterative reconstruction technique. FINDINGS: Thyroid gland: unremarkable. Axilla: unremarkable. Aorta: Mild aortic atherosclerosis is present. No evidence of aortic aneurysm. Mediastinum: A few borderline enlarged mediastinal lymph nodes are again noted appearing unchanged. Heart: Heart is mildly enlarged. Coronary artery atherosclerosis is demonstrated. Prosthetic mitral valve is demonstrated. Lungs/airways: Subsegmental atelectasis versus scarring in the right lung base is noted. No consolidation. Airways are patent. Pleural spaces: Small right pleural effusion is demonstrated with associated pleural thickening. There is a small left pleural effusion without obvious pleural thickening. No pneumothorax. Osseous: Sternotomy changes are present. There is a healing fracture of the right lateral sixth rib. There is a small gap within the right posterior seventh rib which may be postoperative related. Soft tissues: Unremarkable. Visualized abdomen: Spleen appears mildly enlarged. IMPRESSION: 1. Small right pleural effusion with associated pleural thickening suggestive of a chronic effusion with underlying empyema not excluded. 2. Small left effusion. 3. Areas of atelectasis versus scarring in the right lung base. Conclusions/Impression: A/ ESRD on HD. HTN with CKD/ CHF. Diastolic CHF, A/C. DM II with CKD. Anemia in CKD. Thrombocytopenia. BEBO/ Secondary HyperPTH. Lobar PNA. P/ Continue current POC and Medications. Arrange for acute HD tomorrow. Agree with abx. Give Procrit. Start Vitamin D and Binders. Restart home medications as indicated. No NSAIDs. AM labs. Daily weight. Thank you kindly for the consultation. Case discussed with Dr. Carr.
[2019-03-09] MEDS ORDERED: ISENTRESS 400 MG PO SCH (21:00)
[2019-03-09] MEDS ORDERED: KALETRA PO SCH (21:00)
[2019-03-10] MEDS ORDERED: LAMIVUDINE 10 MG/ML PO SCH (09:00)
[2019-03-14] MEDS ORDERED: DRISDOL (VITAMIN D=ERGOCALCIFEROL) 50000 UNIT CAP PO SCH (09:00)
== END 2019-03-09 17:42 | disposition home or self-care (01) ==
LOC: ER 21:26 → 4TH 03-09 02:53
PROVIDERS: ADMIT Internal Medicine; ATTEND Internal Medicine
DX: J90 Pleural effusion, not elsewhere classified (principal); I12.0 Hypertensive chronic kidney disease with stage 5 chronic kidney disease or end stage renal disease; N18.6 End stage renal disease; E11.22 Type 2 diabetes mellitus with diabetic chronic kidney disease; Z21 Asymptomatic human immunodeficiency virus [HIV] infection status; Z79.01 Long term (current) use of anticoagulants; Z95.2 Presence of prosthetic heart valve; Z99.2 Dependence on renal dialysis; Z87.891 Personal history of nicotine dependence; B18.2 Chronic viral hepatitis C
CPT/HCPCS: 96365; 96367; 93005; 87040 ×2; 85025 ×2; 80048 ×2; 36415; 83735; 82550; 85610; 82962 ×3; 80076; 84484; 83690; 84145; 83880; 71250; 71045; 97162; 82805; 99285; J0456; G0378 ×2

== ENCOUNTER 2019-07-24 19:15 | Emergency (ER) | payer OTHER ==
--- OUTSIDE RECORDS SUMMARY | 2019-07-24 19:48 | XMS REPORT ---
:1955 Author Organization [facility] Address [address] [place] [address] Care Team Providers Name Role Phone UNKNOWN, REFFERING Primary Care Provider Unavailable ROMEO CAMPBELL Unavailable Unavailable SD SOLANO Unavailable Unavailable BRIGHT BREWER Unavailable Unavailable ANNABELLE MARCELINO Unavailable Unavailable AXEL GERBER Unavailable Unavailable SANJUANA TURPIN Unavailable Unavailable RHEA ANTONIO Unavailable Unavailable GRICEL HOLLOWAYAL S Unavailable Unavailable ELIANA, NEEL Unavailable Unavailable SHILA JAFFE MD, M.DDafne Unavailable Unavailable Problems This patient has no known problems. Allergies, Adverse Reactions, Alerts This patient has no known allergies or adverse reactions. Medications This patient has no known medications. Encounters Start End Encounter Admission Attending Care Care Encounter Date/Time Date/Time Type Type Clinicians Facility Department ID 2017-11-18 2017-11-20 [facility]patient [facility] [id number] 13:43:00 13:54:00 [facility]LIN 2017-11-07 2017-11-07 Emergency E [facility] [id number] 20:22:00 20:22:00 2017-10-06 2017-10-06 Emergency [facility] [id number] 14:25:00 14:25:00 NEEL Results Test Description Test Time Test Comments Text Results Atomic Results Result Comments AFB CULTURE + SMEAR 2019-02-02 07:33:00 Test Item Value Reference Range Comments CULTURE (BEAKER) (test kxdh=4147) No acid-fast bacilli isolated in 42 days AFB SMEAR (BEAKER) (test tmgq=812) No acid fast bacilli seen FUNGUS CULTURE + [id number] 17:26:00 Test Item Value Reference Range Comments CULTURE (BEAKER) (test No fungus isolated in 28 days vatt=3369) FUNGUS SMEAR (BEAKER) (test No fungi seen xqig=5320) POCT-GLUCOSE [id number] 13:35:00 Test Item Value Reference Range Comments POC-GLUCOSE METER (BEAKER) 116 mg/dL 70-110 TESTED AT [facility] [address] (test lawa=0873) [facility] [address] POCT-GLUCOSE [id number] 08:54:00 Test Item Value Reference Range Comments POC-GLUCOSE METER (BEAKER) 99 mg/dL 70-110 TESTED AT [address] (test oeyx=1485) [facility] [address] [id number] 06:34:00 Test Item Value Reference Range Comments PARTIAL THROMBOPLASTIN TIME (BEAKER) (test 46.7 seconds 22.5-36.0 mlhs=706) While on warfarin.PROTHROMBIN TIME/[id number] 06:33:00 Test Item Value Reference Range Comments PROTIME (BEAKER) (test gead=941) 26.5 seconds 11.7-14.7 INR (BEAKER) (test hohm=359) 2.6 <=5.9 RECOMMENDED COUMADIN/WARFARIN INR THERAPY RANGESSTANDARD DOSE: 2.0 - 3.0 Includes: PROPHYLAXIS forvenous thrombosis, systemic embolization; TREATMENT for venous thrombosis and/or pulmonary embolus.HIGH RISK: Target INR is 2.5-3.5 for patients with mechanical heart valves.While on warfarin.BASIC METABOLIC [id number] 06:30:00 Test Item Value Reference Range Comments SODIUM (BEAKER) (test 132 meq/L 136-145 hnxx=159) POTASSIUM (BEAKER) (test 4.7 meq/L 3.5-5.1 kumb=863) CHLORIDE (BEAKER) (test 96 meq/L 98-107 fegv=983) CO2 (BEAKER) (test 27 meq/L 22-29 heff=211) BLOOD UREA NITROGEN 59 mg/dL 7-21 (BEAKER) (test burc=897) CREATININE (BEAKER) (test 6.00 mg/dL 0.57-1.25 hpah=558) GLUCOSE RANDOM (BEAKER) 118 mg/dL 70-105 (test xoam=268) CALCIUM (BEAKER) (test 9.5 mg/dL 8.4-10.2 ptee=753) EGFR (BEAKER) (test 12 mL/min/1.73 sq m ESTIMATED GFR IS NOT fzoj=1019) ACCURATE CREATININE CLEARANCE IN PREDICTING GLOMERULAR FILTRATION RATE. ESTIMATED GFR IS NOT APPLICABLE FOR DIALYSIS PATIENTS. CBC (HEMOGRAM ONLY)2019-01-06 06:09:00 Test Item Value Reference Range Comments WHITE BLOOD CELL COUNT (BEAKER) (test bccm=987) 9.4 K/ L 3.5-10.5 RED BLOOD CELL COUNT (BEAKER) (test dzin=217) 2.60 M/ L 4.63-6.08 HEMOGLOBIN (BEAKER) (test kqat=311) 8.5 GM/DL 13.7-17.5 HEMATOCRIT (BEAKER) (test blso=106) 27.6 % 40.1-51.0 MEAN CORPUSCULAR VOLUME (BEAKER) (test bygn=691) 106.2 fL 79.0-92.2 MEAN CORPUSCULAR HEMOGLOBIN (BEAKER) (test 32.7 pg 25.7-32.2 aozh=963) MEAN CORPUSCULAR HEMOGLOBIN CONC (BEAKER) (test 30.8 GM/DL 32.3-36.5 lwhl=217) RED CELL DISTRIBUTION WIDTH (BEAKER) (test 17.9 % 11.6-14.4 wkcz=718) PLATELET COUNT (BEAKER) (test qrlk=377) 148 K/CU MM 150-450 MEAN PLATELET VOLUME (BEAKER) (test vhfq=704) 9.2 fL 9.4-12.4 NUCLEATED RED BLOOD CELLS (BEAKER) (test 1 /100 WBC 0-0 eykc=538) POCT-GLUCOSE [id number] 21:38:00 Test Item Value Reference Range Comments POC-GLUCOSE METER (BEAKER) 192 mg/dL 70-110 TESTED AT [address] (test glvr=6384) [facility] [address] POCT-GLUCOSE [id number] 13:01:00 Test Item Value Reference Range Comments POC-GLUCOSE METER (BEAKER) 200 mg/dL 70-110 TESTED AT [address] (test ashi=7770) [facility] [address] POCT-GLUCOSE [id number] 08:00:00 Test Item Value Reference Range Comments POC-GLUCOSE METER (BEAKER) 123 mg/dL 70-110 TESTED AT [address] (test ufgc=6571) [facility] [address] [id number] 06:40:00 Test Item Value Reference Range Comments PARTIAL THROMBOPLASTIN TIME (BEAKER) (test 83.1 seconds 22.5-36.0 gsyg=169) [id number] 05:54:00 Test Item Value Reference Range Comments PARTIAL THROMBOPLASTIN TIME (BEAKER) (test > seconds 22.5-36.0 ewxi=037) PROTHROMBIN [id number] 05:30:00 Test Item Value Reference Range Comments PROTIME (BEAKER) (test gdyp=981) 24.1 seconds 11.7-14.7 INR (BEAKER) (test iaoz=361) 2.3 <=5.9 RECOMMENDED COUMADIN/WARFARIN INR THERAPY RANGESSTANDARD DOSE: 2.0 - 3.0 Includes: PROPHYLAXIS forvenous thrombosis, systemic embolization; TREATMENT for venous thrombosis and/or pulmonary embolus.HIGH RISK: Target INR is 2.5-3.5 for patients with mechanical heart valves.While on warfarin.CBC (HEMOGRAM ONLY) 2019-01-05 05:15:00 Test Item Value Reference Range Comments WHITE BLOOD CELL COUNT (BEAKER) (test kaqy=396) 9.4 K/ L 3.5-10.5 RED BLOOD CELL COUNT (BEAKER) (test llgc=948) 2.54 M/ L 4.63-6.08 HEMOGLOBIN (BEAKER) (test ssjc=712) 8.2 GM/DL 13.7-17.5 HEMATOCRIT (BEAKER) (test mdym=929) 27.1 % 40.1-51.0 MEAN CORPUSCULAR VOLUME (BEAKER) (test lrbl=071) 106.7 fL 79.0-92.2 MEAN CORPUSCULAR HEMOGLOBIN (BEAKER) (test 32.3 pg 25.7-32.2 ltxc=418) MEAN CORPUSCULAR HEMOGLOBIN CONC (BEAKER) (test 30.3 GM/DL 32.3-36.5 meif=912) RED CELL DISTRIBUTION WIDTH (BEAKER) (test 17.3 % 11.6-14.4 kpel=598) PLATELET COUNT (BEAKER) (test itud=754) 151 K/CU MM 150-450 MEAN PLATELET VOLUME (BEAKER) (test nbkn=433) 8.9 fL 9.4-12.4 NUCLEATED RED BLOOD CELLS (BEAKER) (test 1 /100 WBC 0-0 mdyt=518) BASIC METABOLIC [id number] 05:10:00 Test Item Value Reference Range Comments SODIUM (BEAKER) (test 134 meq/L 136-145 vnex=669) POTASSIUM (BEAKER) (test 4.0 meq/L 3.5-5.1 flvf=011) CHLORIDE (BEAKER) (test 97 meq/L 98-107 will=107) CO2 (BEAKER) (test 29 meq/L 22-29 aewh=612) BLOOD UREA NITROGEN 41 mg/dL 7-21 (BEAKER) (test sprm=033) CREATININE (BEAKER) (test 4.78 mg/dL 0.57-1.25 movh=677) GLUCOSE RANDOM (BEAKER) 185 mg/dL 70-105 (test jhvg=098) CALCIUM (BEAKER) (test 9.3 mg/dL 8.4-10.2 eaqu=507) EGFR (BEAKER) (test 15 mL/min/1.73 sq m ESTIMATED GFR IS NOT onyw=6638) ACCURATE CREATININE CLEARANCE IN PREDICTING GLOMERULAR FILTRATION RATE. ESTIMATED GFR IS NOT APPLICABLE FOR DIALYSIS PATIENTS. OCCULT BLOOD, [id number] 23:46:00 Test Item Value Reference Range Comments FECAL OCCULT BLOOD (BEAKER) (test twpg=554) Negative Negative POCT-GLUCOSE [id number] 22:52:00 Test Item Value Reference Range Comments POC-GLUCOSE METER (BEAKER) 192 mg/dL 70-110 TESTED AT [facility] [address] (test heim=7758) [facility] [address] POCT-GLUCOSE [id number] 17:11:00 Test Item Value Reference Range Comments POC-GLUCOSE METER (BEAKER) 149 mg/dL 70-110 TESTED AT [facility] [address] (test jtwg=2293) [facility] [address] PROTHROMBIN [id number] 13:00:00 Test Item Value Reference Range Comments PROTIME (BEAKER) (test tndb=191) 19.9 seconds 11.7-14.7 INR (BEAKER) (test fscj=869) 1.8 <=5.9 RECOMMENDED COUMADIN/WARFARIN INR THERAPY RANGESSTANDARD DOSE: 2.0 - 3.0 Includes: PROPHYLAXIS forvenous thrombosis, systemic embolization; TREATMENT for venous thrombosis and/or pulmonary embolus.HIGH RISK: Target INR is 2.5-3.5 for patients with mechanical heart valves.While on warfarin.POCT-GLUCOSE [id number] 12:14:00 Test Item Value Reference Range Comments POC-GLUCOSE METER (BEAKER) 134 mg/dL 70-110 TESTED AT [address] (test ayxs=8484) [facility] [address] RAD, CHEST, 1 VIEW, NON [id number] 08:02:00Reason for exam:->Post opShould this be performed at the bedside?->YesFINAL REPORT AP view of the chest dated 01/04/2019 COMPARISON: 01/03/2019 CLINICAL INFORMATION: Post op Comment: Heart is enlarged. Pulmonary vasculature is unremarkable. There is small to moderate right pleural effusion. Loculated fluid is seen in the right minor fissure. Subsegmental atelectasis is seen in the right mid and lower lobe. Left lung is clear. Right IJ central venous catheter remains in place. IMPRESSION: No interval change. Signed: Edenilson Bloom MDReport Verified Date/Time: 01/04/2019 08:02:18 Reading Location: [address] Consult Reading Room Electronicallysigned by: EDENILSON BLOOM M.D. on 01/04/2019 08:02 AMPOCT-GLUCOSE [id number] 07:42:00 Test Item Value Reference Range Comments POC-GLUCOSE METER (BEAKER) 98 mg/dL 70-110 TESTED AT [address] (test liwk=6349) [facility] [address] BASIC METABOLIC [id number] 07:28:00 Test Item Value Reference Range Comments SODIUM (BEAKER) (test 136 meq/L 136-145 qdky=638) POTASSIUM (BEAKER) (test 4.1 meq/L 3.5-5.1 cvsh=187) CHLORIDE (BEAKER) (test 98 meq/L 98-107 igjj=037) CO2 (BEAKER) (test 29 meq/L 22-29 xizb=092) BLOOD UREA NITROGEN 21 mg/dL 7-21 (BEAKER) (test ehju=338) CREATININE (BEAKER) (test 3.10 mg/dL 0.57-1.25 cnzd=117) GLUCOSE RANDOM (BEAKER) 101 mg/dL 70-105 (test uavv=636) CALCIUM (BEAKER) (test 9.4 mg/dL 8.4-10.2 rbdj=732) EGFR (BEAKER) (test 25 mL/min/1.73 sq m ESTIMATED GFR IS NOT qskz=6846) ACCURATE CREATININE CLEARANCE IN PREDICTING GLOMERULAR FILTRATION RATE. ESTIMATED GFR IS NOT APPLICABLE FOR DIALYSIS PATIENTS. CBC (HEMOGRAM ONLY)2019-01-04 07:07:00 Test Item Value Reference Range Comments WHITE BLOOD CELL COUNT (BEAKER) (test gyiw=567) 10.6 K/ L 3.5-10.5 RED BLOOD CELL COUNT (BEAKER) (test ivzf=377) 2.69 M/ L 4.63-6.08 HEMOGLOBIN (BEAKER) (test robf=661) 8.7 GM/DL 13.7-17.5 HEMATOCRIT (BEAKER) (test vqmz=430) 28.4 % 40.1-51.0 MEAN CORPUSCULAR VOLUME (BEAKER) (test fyvy=237) 105.6 fL 79.0-92.2 MEAN CORPUSCULAR HEMOGLOBIN (BEAKER) (test 32.3 pg 25.7-32.2 qrhn=748) MEAN CORPUSCULAR HEMOGLOBIN CONC (BEAKER) (test 30.6 GM/DL 32.3-36.5 ooir=646) RED CELL DISTRIBUTION WIDTH (BEAKER) (test 17.2 % 11.6-14.4 tbfe=453) PLATELET COUNT (BEAKER) (test dshm=916) 170 K/CU MM 150-450 MEAN PLATELET VOLUME (BEAKER) (test hypl=582) 9.1 fL 9.4-12.4 NUCLEATED RED BLOOD CELLS (BEAKER) (test 1 /100 WBC 0-0 rsgj=062) [id number] 06:08:00 Test Item Value Reference Range Comments PARTIAL THROMBOPLASTIN TIME (BEAKER) (test 70.6 seconds 22.5-36.0 utoy=469) [id number] 23:32:00 Test Item Value Reference Range Comments PARTIAL THROMBOPLASTIN TIME (BEAKER) (test 77.2 seconds 22.5-36.0 sqel=029) POCT-GLUCOSE [id number] 21:55:00 Test Item Value Reference Range Comments POC-GLUCOSE METER (BEAKER) 150 mg/dL 70-110 TESTED AT [address] (test wqxz=2015) [place] [address] [id number] 18:25:00 Test Item Value Reference Range Comments PARTIAL THROMBOPLASTIN TIME (BEAKER) (test 71.2 seconds 22.5-36.0 zrcw=964) POCT-GLUCOSE [id number] 13:45:00 Test Item Value Reference Range Comments POC-GLUCOSE METER (BEAKER) 375 mg/dL 70-110 Notified LAURYN PÉREZ/TESTED AT [facility] (test mgoq=0322) [address] [place] [address] [id number] 10:26:00 Test Item Value Reference Range Comments PARTIAL THROMBOPLASTIN TIME (BEAKER) (test 94.0 seconds 22.5-36.0 nygz=849) While on warfarin.PROTHROMBIN TIME/[id number] 10:24:00 Test Item Value Reference Range Comments PROTIME (BEAKER) (test eahe=147) 19.3 seconds 11.7-14.7 INR (BEAKER) (test corx=517) 1.7 <=5.9 RECOMMENDED COUMADIN/WARFARIN INR THERAPY RANGESSTANDARD DOSE: 2.0 - 3.0 Includes: PROPHYLAXIS forvenous thrombosis, systemic embolization; TREATMENT for venous thrombosis and/or pulmonary embolus.HIGH RISK: Target INR is 2.5-3.5 for patients with mechanical heart valves.While on warfarin.POCT-GLUCOSE [id number] 08:36:00 Test Item Value Reference Range Comments POC-GLUCOSE METER (BEAKER) 124 mg/dL 70-110 TESTED AT [address] (test ztao=0760) [place] [address] RAD, CHEST, 1 VIEW, NON [id number] 08:19:00Reason for exam:->Post opShould this be performed at the bedside?->YesFINAL REPORT RAD, CHEST, 1 VIEW, NON DEPT INDICATION: Post op COMPARISON: Prior day' s exam FINDINGS: Portable frontal view of the chest. IMPRESSION: Support Lines: Right IJ catheter tip overlies the SVC Lungs and pleura: Right effusion and adjacent airspace disease are unchanged. Loculated effusion within the minor fissure is unchanged. No pneumothorax.Heart and mediastinum:Stable contours. Additional findings: None. Signed: Radha Lisa Verified Date/Time: 01/03/2019 08:19:51 Reading Location: [facility] B1 C013V Neuro Reading Room 08: 19 [id number] 03:31:00 Test Item Value Reference Range Comments PARTIAL THROMBOPLASTIN TIME (BEAKER) (test 64.2 seconds 22.5-36.0 ctpb=932) BASIC METABOLIC [id number] 03:21:00 Test Item Value Reference Range Comments SODIUM (BEAKER) (test 132 meq/L 136-145 ubnk=207) POTASSIUM (BEAKER) (test 3.9 meq/L 3.5-5.1 clck=389) CHLORIDE (BEAKER) (test 95 meq/L 98-107 mcli=885) CO2 (BEAKER) (test 28 meq/L 22-29 jhva=073) BLOOD UREA NITROGEN 37 mg/dL 7-21 (BEAKER) (test symd=131) CREATININE (BEAKER) (test 4.74 mg/dL 0.57-1.25 ntet=829) GLUCOSE RANDOM (BEAKER) 125 mg/dL 70-105 (test qkjk=576) CALCIUM (BEAKER) (test 9.2 mg/dL 8.4-10.2 dwin=739) EGFR (BEAKER) (test 15 mL/min/1.73 sq m ESTIMATED GFR IS NOT qdmd=6230) ACCURATE CREATININE CLEARANCE IN PREDICTING GLOMERULAR FILTRATION RATE. ESTIMATED GFR IS NOT APPLICABLE FOR DIALYSIS PATIENTS. CBC (HEMOGRAM ONLY)2019-01-03 02:58:00 Test Item Value Reference Range Comments WHITE BLOOD CELL COUNT (BEAKER) (test rxls=495) 10.8 K/ L 3.5-10.5 RED BLOOD CELL COUNT (BEAKER) (test rmtt=086) 2.61 M/ L 4.63-6.08 HEMOGLOBIN (BEAKER) (test cizs=638) 8.2 GM/DL 13.7-17.5 HEMATOCRIT (BEAKER) (test oxou=732) 26.9 % 40.1-51.0 MEAN CORPUSCULAR VOLUME (BEAKER) (test yhfc=056) 103.1 fL 79.0-92.2 MEAN CORPUSCULAR HEMOGLOBIN (BEAKER) (test 31.4 pg 25.7-32.2 femh=987) MEAN CORPUSCULAR HEMOGLOBIN CONC (BEAKER) (test 30.5 GM/DL 32.3-36.5 ggee=988) RED CELL DISTRIBUTION WIDTH (BEAKER) (test 16.1 % 11.6-14.4 jhlz=038) PLATELET COUNT (BEAKER) (test nzva=902) 167 K/CU MM 150-450 MEAN PLATELET VOLUME (BEAKER) (test prkp=722) 8.7 fL 9.4-12.4 NUCLEATED RED BLOOD CELLS (BEAKER) (test 1 /100 WBC 0-0 apok=291) POCT-GLUCOSE [id number] 22:54:00 Test Item Value Reference Range Comments POC-GLUCOSE METER (BEAKER) 206 mg/dL 70-110 TESTED AT [address] (test jbod=8164) [place] [address] [id number] 19:36:00 Test Item Value Reference Range Comments PARTIAL THROMBOPLASTIN TIME (BEAKER) (test 79.3 seconds 22.5-36.0 zeni=430) POCT-GLUCOSE [id number] 17:59:00 Test Item Value Reference Range Comments POC-GLUCOSE METER (BEAKER) 186 mg/dL 70-110 TESTED AT [address] (test vtub=3619) [place] [address] POCT-GLUCOSE [id number] 13:54:00 Test Item Value Reference Range Comments POC-GLUCOSE METER (BEAKER) 139 mg/dL 70-110 TESTED AT [address] (test mkzo=7019) [place] [address] POCT-GLUCOSE [id number] 13:05:00 Test Item Value Reference Range Comments POC-GLUCOSE METER (BEAKER) 163 mg/dL 70-110 TESTED AT [address] (test fnsa=1238) [place] [address] [id number] 12:49:00 Test Item Value Reference Range Comments PARTIAL THROMBOPLASTIN TIME (BEAKER) (test 64.9 seconds 22.5-36.0 nmil=297) OCCULT BLOOD, [id number] 12:31:00 Test Item Value Reference Range Comments FECAL OCCULT BLOOD (BEAKER) (test ftfr=921) Negative Negative RAD, CHEST, 1 VIEW, NON [id number] 10:37:00Reason for exam:->Post opShould this be performed at the bedside?->YesFINAL REPORT Portable chest. CLINICAL HISTORY: Post op. COMPARISON STUDY: Chest x- ray from yesterday. FINDINGS: The cardiac silhouette is enlarged. Sternotomy wires are seen. Thepatient is status post valve replacement. The pulmonary parenchyma demonstrate a rounded opacity in the right midlung, possibly loculated fluid. There is a small right pleural effusion with adjacent atelectasis or consolidation and volume loss on the right side, stable from previous. The support linesand tubes are unchanged. No pneumothorax is seen. Degenerative changes are noted. IMPRESSION: No significant change. Signed: Sarah Beth [facility] Verified Date/Time: 01/02/2019 10:37:35 Reading Location: [facility] Radiology Reading Room POCT-GLUCOSE [id number] 08:07:00 Test Item Value Reference Range Comments POC-GLUCOSE METER (BEAKER) 107 mg/dL 70-110 TESTED AT [facility] [address] [place] [address] (test akms=0387) [facility] [address] [id number] 04:48:00 Test Item Value Reference Range Comments PARTIAL THROMBOPLASTIN TIME (BEAKER) (test 106.0 seconds 22.5-36.0 spnf=155) While on warfarin.BASIC METABOLIC [id number] 04:48:00 Test Item Value Reference Range Comments SODIUM (BEAKER) (test 135 meq/L 136-145 mkpr=509) POTASSIUM (BEAKER) (test 4.0 meq/L 3.5-5.1 snnu=709) CHLORIDE (BEAKER) (test 98 meq/L 98-107 brpz=455) CO2 (BEAKER) (test 31 meq/L 22-29 urmb=640) BLOOD UREA NITROGEN 25 mg/dL 7-21 (BEAKER) (test vksk=325) CREATININE (BEAKER) (test 3.58 mg/dL 0.57-1.25 scpa=405) GLUCOSE RANDOM (BEAKER) 86 mg/dL 70-105 (test jhbw=467) CALCIUM (BEAKER) (test 9.1 mg/dL 8.4-10.2 ficn=169) EGFR (BEAKER) (test 21 mL/min/1.73 sq m ESTIMATED GFR IS NOT lhng=9243) ACCURATE CREATININE CLEARANCE IN PREDICTING GLOMERULAR FILTRATION RATE. ESTIMATED GFR IS NOT APPLICABLE FOR DIALYSIS PATIENTS. PROTHROMBIN [id number] 04:39:00 Test Item Value Reference Range Comments PROTIME (BEAKER) (test kgjk=857) 19.4 seconds 11.7-14.7 INR (BEAKER) (test mszm=599) 1.7 <=5.9 RECOMMENDED COUMADIN/WARFARIN INR THERAPY RANGESSTANDARD DOSE: 2.0 - 3.0 Includes: PROPHYLAXIS forvenous thrombosis, systemic embolization; TREATMENT for venous thrombosis and/or pulmonary embolus.HIGH RISK: Target INR is 2.5-3.5 for patients with mechanical heart valves.While on warfarin.CBC (HEMOGRAM ONLY) 2019-01-02 04:30:00 Test Item Value Reference Range Comments WHITE BLOOD CELL COUNT (BEAKER) (test smnl=392) 12.4 K/ L 3.5-10.5 RED BLOOD CELL COUNT (BEAKER) (test cohj=983) 2.51 M/ L 4.63-6.08 HEMOGLOBIN (BEAKER) (test wzap=401) 8.2 GM/DL 13.7-17.5 HEMATOCRIT (BEAKER) (test qrbh=743) 26.0 % 40.1-51.0 MEAN CORPUSCULAR VOLUME (BEAKER) (test wwda=680) 103.6 fL 79.0-92.2 MEAN CORPUSCULAR HEMOGLOBIN (BEAKER) (test 32.7 pg 25.7-32.2 jeqt=397) MEAN CORPUSCULAR HEMOGLOBIN CONC (BEAKER) (test 31.5 GM/DL 32.3-36.5 qeae=136) RED CELL DISTRIBUTION WIDTH (BEAKER) (test 16.5 % 11.6-14.4 cfbh=330) PLATELET COUNT (BEAKER) (test svfd=091) 161 K/CU MM 150-450 MEAN PLATELET VOLUME (BEAKER) (test gzlf=527) 8.9 fL 9.4-12.4 NUCLEATED RED BLOOD CELLS (BEAKER) (test 0 /100 WBC 0-0 aavg=110) POCT-GLUCOSE [id number] 22:17:00 Test Item Value Reference Range Comments POC-GLUCOSE METER (BEAKER) 117 mg/dL 70-110 TESTED AT [address] (test bjry=1831) [place] [address] RAD, CHEST, 1 VIEW, NON [id number] 19:40:00Reason for exam:->Post opShould this be performed at the bedside?->YesFINAL REPORT AP view of the chest dated 01/01/2019 COMPARISON: December 31, 2018 CLINICAL INFORMATION: Post op Comment: Heart is enlarged. A right IJ central venous catheter is again noted. There is prior sternotomy and valvular replacement. Pulmonary vasculature is unremarkable. There is small right pleural effusion. Fluid is also seen in the right minor fissure. Subsegmental atelectasis is seen in the right mid and lower lobes. The rest of the lungs are clear. IMPRESSION: No interval change. Signed: Edenilson Bolom Verified Date/Time: 2018 19:40:01 Reading Location: [address] Consult Reading Room POCT-GLUCOSE [id number] 18:22:00 Test Item Value Reference Range Comments POC-GLUCOSE METER (BEAKER) 159 mg/dL 70-110 TESTED AT [address] (test edod=4998) [place] [id number] POCT-GLUCOSE [id number] 14:12:00 Test Item Value Reference Range Comments POC-GLUCOSE METER (BEAKER) 135 mg/dL 70-110 TESTED AT [address] (test bgnm=8183) [place] [id number] HEPATITIS B SURFACE [id number] 11:52:00 Test Item Value Reference Range Comments HEPATITIS B SURFACE ANTIGEN (2) (BEAKER) (test Nonreactive Nonreactive blsl=0469) POCT-GLUCOSE [id number] 08:40:00 Test Item Value Reference Range Comments POC-GLUCOSE METER (BEAKER) 85 mg/dL 70-110 TESTED AT [facility] [address] (test zbkn=6797) [facility] [address] BASIC METABOLIC [id number] 04:17:00 Test Item Value Reference Range Comments SODIUM (BEAKER) (test 132 meq/L 136-145 reca=179) POTASSIUM (BEAKER) (test 4.2 meq/L 3.5-5.1 Specimen slightly ians=853) hemolyzed CHLORIDE (BEAKER) (test 95 meq/L 98-107 owrd=606) CO2 (BEAKER) (test 30 meq/L 22-29 yews=348) BLOOD UREA NITROGEN 41 mg/dL 7-21 (BEAKER) (test ylex=372) CREATININE (BEAKER) (test 4.98 mg/dL 0.57-1.25 Specimen slightly rwgq=087) hemolyzed GLUCOSE RANDOM (BEAKER) 96 mg/dL 70-105 (test ifgb=147) CALCIUM (BEAKER) (test 9.2 mg/dL 8.4-10.2 rbcp=553) EGFR (BEAKER) (test 14 mL/min/1.73 sq m ESTIMATED GFR IS NOT chnt=8019) ACCURATE CREATININE CLEARANCE IN PREDICTING GLOMERULAR FILTRATION RATE. ESTIMATED GFR IS NOT APPLICABLE FOR DIALYSIS PATIENTS. [id number] 03:40:00 Test Item Value Reference Range Comments PARTIAL THROMBOPLASTIN TIME (BEAKER) (test 84.1 seconds 22.5-36.0 cgix=397) While on warfarin.PROTHROMBIN TIME/[id number] 03:39:00 Test Item Value Reference Range Comments PROTIME (BEAKER) (test rlhj=300) 19.1 seconds 11.7-14.7 INR (BEAKER) (test xshc=089) 1.7 <=5.9 RECOMMENDED COUMADIN/WARFARIN INR THERAPY RANGESSTANDARD DOSE: 2.0 - 3.0 Includes: PROPHYLAXIS forvenous thrombosis, systemic embolization; TREATMENT for venous thrombosis and/or pulmonary embolus.HIGH RISK: Target INR is 2.5-3.5 for patients with mechanical heart valves.While on warfarin.CBC (HEMOGRAM ONLY) 2019-01-01 03:29:00 Test Item Value Reference Range Comments WHITE BLOOD CELL COUNT (BEAKER) (test ycbc=210) 13.2 K/ L 3.5-10.5 RED BLOOD CELL COUNT (BEAKER) (test zewb=977) 2.60 M/ L 4.63-6.08 HEMOGLOBIN (BEAKER) (test dpnl=826) 8.3 GM/DL 13.7-17.5 HEMATOCRIT (BEAKER) (test uucx=856) 26.3 % 40.1-51.0 MEAN CORPUSCULAR VOLUME (BEAKER) (test sjpi=661) 101.2 fL 79.0-92.2 MEAN CORPUSCULAR HEMOGLOBIN (BEAKER) (test 31.9 pg 25.7-32.2 knws=176) MEAN CORPUSCULAR HEMOGLOBIN CONC (BEAKER) (test 31.6 GM/DL 32.3-36.5 sofh=493) RED CELL DISTRIBUTION WIDTH (BEAKER) (test 15.9 % 11.6-14.4 thvv=874) PLATELET COUNT (BEAKER) (test raek=909) 186 K/CU MM 150-450 MEAN PLATELET VOLUME (BEAKER) (test socb=956) 9.0 fL 9.4-12.4 NUCLEATED RED BLOOD CELLS (BEAKER) (test 0 /100 WBC 0-0 azpo=695) POCT-GLUCOSE [id number] 22:08:00 Test Item Value Reference Range Comments POC-GLUCOSE METER (BEAKER) 194 mg/dL 70-110 TESTED AT [address] (test iabm=5496) [place] [id number] POCT-GLUCOSE [id number] 22:03:00 Test Item Value Reference Range Comments POC-GLUCOSE METER (BEAKER) 203 mg/dL 70-110 TESTED AT [address] (test drpn=0799) [place] [address] POCT-GLUCOSE [id number] 21:42:00 Test Item Value Reference Range Comments POC-GLUCOSE METER (BEAKER) 42 mg/dL 70-110 TESTED AT [address] (test teib=1831) [place] [address] [id number] 21:35:00 Test Item Value Reference Range Comments PARTIAL THROMBOPLASTIN TIME (BEAKER) (test 80.4 seconds 22.5-36.0 nepi=041) POCT-GLUCOSE [id number] 18:03:00 Test Item Value Reference Range Comments POC-GLUCOSE METER (BEAKER) 144 mg/dL 70-110 TESTED AT [facility] [address] (test higt=1233) [facility] [address] TISSUE [id number] 16:33:00Surgical Pathology Report Case: [id number] Authorizing Provider: ZacharyEnmanuel Collected: 12/26/2018 1537 MD Liban [facility]ingLocation[facility] Received: 2018 0814 Service Pathologist: Brigida Parks MD Specimens: A) - Biopsy, Gastric, random gastric bx; gastritis B) - Biopsy, Mid-esophagus, mid esophagus ulcer bx; evaluate for HSV, CMV; hx of HIV This addendum is issued toreport the result of GMS stain on specimen B: - NEGATIVEThe interpretation of this case included theuse of immunohistochemistry or special stains. GMSImmunohistochemistry technical testing was performed at [facility], Pathology Laboratory where it was developed and its performance characteristics were determined. It has not been cleared or approved by the U.S. Food and Drug Administration. The FDA has determined that such clearance or approval is not necessary. The test is used for clinical purposes. It should not be regarded as investigational or for research. This laboratory is certified under the Clinical Laboratory Improvement Amendments of 1988 (CLIA-88) as qualified toperform high complexity clinical laboratory testing.CPT CODE: [id number] electronically signed byBrigida Parks MD on 12/31/2018 at 4:33 PMTHIS FINAL REPORT IS ISSUED TO REPORT THE RESULTS OF IMMUNOHISTOCHEMICAL STAINS FOR CMV, HSV I AND HSV II: A. STOMACH, RANDOM, ENDOSCOPIC BIOPSY: - ANTRAL MUCOSA WITH MILD CHRONIC AND ACUTE GASTRITIS WITH REACTIVE GASTROPATHY - OXYNTIC MUCOSA WITH NOPATHOLOGIC ALTERATION - NO HELICOBACTER PYLORI-LIKE ORGANISMS SEEN ON WARTHIN- STARRY STAIN - NO INTESTINAL METAPLASIA,DYSPLASIA OR MALIGNANCY NOTED GASTROESOPHAGEAL MID-ESOPHAGUS, ENDOSCOPIC BIOPSY: - ACTIVE ESOPHAGITIS WITH ULCERATION AND GRANULATION TISSUE - GASTRIC MUCOSA WITH POSSIBLE EROSION AND REACTIVE CHANGES - NO INTESTINAL METAPLASIA SEEN - NO VIRAL INCLUSIONS ARE IDENTIFIED - NO DYSPLASIA OR MALIGNANCY PRESENT - IMMUNOHISTOCHEMICAL STUDIES FOR CMV, HSV I AND II ARE NEGATIVE Signing Pathologist Direct Phone Line: [phone] signed by Brigida Parks MD on 12/30/2018 at 6:43 PMPreliminary result electronically signed by Brigida Parks MD on 12/29/2018 at 4:54 [id number] X 2; [id number]; 69254; [id number] X 2Upper endoscopy, biopsyPreoperative and postoperative diagnosis: Dysphagia, unspecified typeA. Biopsy, gastric tissue, random gastric biopsy, gastritis. B. Biopsy mid esophagus ulcer biopsy, evaluate for HSV, CMV, history of HIVThis case was received in a biohazard bag labeled A. Random gastric biopsy. B. Mid esophagus ulcer biopsy.A. Received in formalin labeled "biopsy, gastric" is a 0.3 cm in greatest dimension porter-pink tissue. The specimen is submitted in toto in cassette A.B. Received in formalin labeled "mid esophagus biopsy tissue" are two porter-pink tissues measuring 0.1 and 0.3 cm in greatest dimension. The specimen is submitted in toto in cassette B. KM/ewPERFORMEDThe interpretation of this case included the use of immunohistochemistry or special stains. WARTHIN -STARRY; HSV I; HSVII AND CMVImmunohistochemistry technical testing was performed at [facility], Pathology Laboratory where it was developed and its performance characteristics were determined. It has not been cleared or approved by the U.S. Food and Drug Administration. The FDA has determined that such clearance or approval is not necessary. The test is used for clinical purposes. It should not be regarded as investigational or for research. This laboratory is certified under the Clinical Laboratory Improvement Amendments of 1988 (CLIA-88) as qualified toperform high complexity clinical laboratory testing.POCT-GLUCOSE [id number] 13:57:00 Test Item Value Reference Range Comments POC-GLUCOSE METER (BEAKER) 178 mg/dL 70-110 TESTED AT [facility] [address] (test frll=0999) [facility] [address] [id number] 12:54:00 Test Item Value Reference Range Comments PARTIAL THROMBOPLASTIN TIME (BEAKER) (test 69.4 seconds 22.5-36.0 kdpt=697) RAD, CHEST, 1 VIEW, NON [id number] 09:26:00Reason for exam:->Post opShould this be performed at the bedside?->YesFINAL REPORT Portable chest 12/31/2018 Since 12/30/2018, there is been no significant change. The heart remains enlarged. Mitral valve replacement is again seen. Right jugular catheter remains positioned with tip in the midportion right atrium. Sternal sutures and a transverse bar-like device remain overlying the midline portion of the chest. There are persistent pleural fluid andpatchy pulmonary opacities in the right mid to lower lung. Signed: Dom Christianson MDReport Verified Date/Time: 12/31/2018 09:26:31 Reading Location: [facility] Radiology Reading Room POCT-GLUCOSE [id number] 09:01:00 Test Item Value Reference Range Comments POC-GLUCOSE METER (BEAKER) 162 mg/dL 70-110 TESTED AT [facility] [address] (test vaba=4214) [facility] [address] BASIC METABOLIC [id number] 06:50:00 Test Item Value Reference Range Comments SODIUM (BEAKER) (test 132 meq/L 136-145 rboi=994) POTASSIUM (BEAKER) (test 3.5 meq/L 3.5-5.1 sqgb=401) CHLORIDE (BEAKER) (test 96 meq/L 98-107 udld=044) CO2 (BEAKER) (test 30 meq/L 22-29 ldyf=239) BLOOD UREA NITROGEN 26 mg/dL 7-21 (BEAKER) (test cqbw=984) CREATININE (BEAKER) (test 3.97 mg/dL 0.57-1.25 klko=371) GLUCOSE RANDOM (BEAKER) 151 mg/dL 70-105 (test xzpu=604) CALCIUM (BEAKER) (test 8.5 mg/dL 8.4-10.2 qrck=137) EGFR (BEAKER) (test 19 mL/min/1.73 sq m ESTIMATED GFR IS NOT kxwh=1909) ACCURATE CREATININE CLEARANCE IN PREDICTING GLOMERULAR FILTRATION RATE. ESTIMATED GFR IS NOT APPLICABLE FOR DIALYSIS PATIENTS. PROTHROMBIN TIME/[id number] 06:38:00 Test Item Value Reference Range Comments PROTIME (BEAKER) (test aqih=476) 19.1 seconds 11.7-14.7 INR (BEAKER) (test jttn=274) 1.7 <=5.9 RECOMMENDED COUMADIN/WARFARIN INR THERAPY RANGESSTANDARD DOSE: 2.0 - 3.0 Includes: PROPHYLAXIS forvenous thrombosis, systemic embolization; TREATMENT for venous thrombosis and/or pulmonary embolus.HIGH RISK: Target INR is 2.5-3.5 for patients with mechanical heart valves.While on warfarin.[id number] 06:37 :00 Test Item Value Reference Range Comments PARTIAL THROMBOPLASTIN TIME (BEAKER) (test 85.3 seconds 22.5-36.0 xiiv=247) CBC (HEMOGRAM ONLY)2018-12-31 06:20:00 Test Item Value Reference Range Comments WHITE BLOOD CELL COUNT (BEAKER) (test nksg=780) 11.9 K/ L 3.5-10.5 RED BLOOD CELL COUNT (BEAKER) (test caga=115) 2.58 M/ L 4.63-6.08 HEMOGLOBIN (BEAKER) (test aesg=166) 8.3 GM/DL 13.7-17.5 HEMATOCRIT (BEAKER) (test dmzl=030) 26.2 % 40.1-51.0 MEAN CORPUSCULAR VOLUME (BEAKER) (test gcoy=941) 101.6 fL 79.0-92.2 MEAN CORPUSCULAR HEMOGLOBIN (BEAKER) (test 32.2 pg 25.7-32.2 dcdr=740) MEAN CORPUSCULAR HEMOGLOBIN CONC (BEAKER) (test 31.7 GM/DL 32.3-36.5 xmci=708) RED CELL DISTRIBUTION WIDTH (BEAKER) (test 15.9 % 11.6-14.4 cifn=501) PLATELET COUNT (BEAKER) (test zctz=789) 156 K/CU MM 150-450 MEAN PLATELET VOLUME (BEAKER) (test saze=621) 8.7 fL 9.4-12.4 NUCLEATED RED BLOOD CELLS (BEAKER) (test 0 /100 WBC 0-0 zubh=921) POCT-GLUCOSE [id number] 00:45:00 Test Item Value Reference Range Comments POC-GLUCOSE METER (BEAKER) 124 mg/dL 70-110 TESTED AT [facility] [address] (test awqe=2144) [facility] [address] [id number] 19:14:00 Test Item Value Reference Range Comments PARTIAL THROMBOPLASTIN TIME (BEAKER) (test 57.8 seconds 22.5-36.0 grle=587) POCT-GLUCOSE [id number] 17:53:00 Test Item Value Reference Range Comments POC-GLUCOSE METER (BEAKER) 133 mg/dL 70-110 TESTED AT [address] (test rxdt=3741) [place] [address] POCT-GLUCOSE [id number] 13:19:00 Test Item Value Reference Range Comments POC-GLUCOSE METER (BEAKER) 147 mg/dL 70-110 TESTED AT [address] (test ugro=7222) [place] [address] [id number] 12:43:00 Test Item Value Reference Range Comments PARTIAL THROMBOPLASTIN TIME (BEAKER) (test 57.0 seconds 22.5-36.0 zfid=971) [id number] 10:17:00 Test Item Value Reference Range Comments PARTIAL THROMBOPLASTIN TIME (BEAKER) (test 134.5 seconds 22.5-36.0 flee=175) POCT-GLUCOSE [id number] 07:43:00 Test Item Value Reference Range Comments POC-GLUCOSE METER (BEAKER) 107 mg/dL 70-110 TESTED AT [address] (test vesp=0726) [place] [address] BASIC METABOLIC [id number] 06:46:00 Test Item Value Reference Range Comments SODIUM (BEAKER) (test 129 meq/L 136-145 mhoz=554) POTASSIUM (BEAKER) (test 4.1 meq/L 3.5-5.1 ufxk=889) CHLORIDE (BEAKER) (test 93 meq/L 98-107 wkdm=871) CO2 (BEAKER) (test 28 meq/L 22-29 bhwh=006) BLOOD UREA NITROGEN 43 mg/dL 7-21 (BEAKER) (test agei=741) CREATININE (BEAKER) (test 6.30 mg/dL 0.57-1.25 utxj=087) GLUCOSE RANDOM (BEAKER) 110 mg/dL 70-105 (test zkzg=200) CALCIUM (BEAKER) (test 8.5 mg/dL 8.4-10.2 mbef=575) EGFR (BEAKER) (test 11 mL/min/1.73 sq m ESTIMATED GFR IS NOT udqi=9477) ACCURATE CREATININE CLEARANCE IN PREDICTING GLOMERULAR FILTRATION RATE. ESTIMATED GFR IS NOT APPLICABLE FOR DIALYSIS PATIENTS. RAD, CHEST, 1 VIEW, NON [id number] 06:25:00Reason for exam:->Post opShould this be performed at the bedside?->YesFINAL REPORT RAD, CHEST, 1 VIEW, NON DEPT INDICATION: Post op COMPARISON: Prior day' s exam FINDINGS: Portable frontal view of the chest. IMPRESSION: Support Lines: Right IJ catheter tip overlies the SVC. Lungs and pleura: Bilateral airspace disease is not significantly changed. Right CP angle remains obscured, likely by pleural effusion. No pneumothorax.Heart and mediastinum: Stable contours. Stable surgical changes.Additional findings: None. Signed: Radha Lisa Verified Date/Time: 12/30/2018 06:25:51 Reading Location: [address] Neuro Reading Room PROTHROMBIN TIME/[id number] 06:06:00 Test Item Value Reference Range Comments PROTIME (BEAKER) (test rycd=851) 19.5 seconds 11.7-14.7 INR (BEAKER) (test syec=328) 1.8 <=5.9 RECOMMENDED COUMADIN/WARFARIN INR THERAPY RANGESSTANDARD DOSE: 2.0 - 3.0 Includes: PROPHYLAXIS forvenous thrombosis, systemic embolization; TREATMENT for venous thrombosis and/or pulmonary embolus.HIGH RISK: Target INR is 2.5-3.5 for patients with mechanical heart valves.While on warfarin.CBC (HEMOGRAM ONLY) 2018-12-30 06:00:00 Test Item Value Reference Range Comments WHITE BLOOD CELL COUNT (BEAKER) (test vsvn=564) 11.4 K/ L 3.5-10.5 RED BLOOD CELL COUNT (BEAKER) (test nzzr=001) 2.62 M/ L 4.63-6.08 HEMOGLOBIN (BEAKER) (test dzky=020) 8.4 GM/DL 13.7-17.5 HEMATOCRIT (BEAKER) (test awlj=638) 26.1 % 40.1-51.0 MEAN CORPUSCULAR VOLUME (BEAKER) (test gxnj=136) 99.6 fL 79.0-92.2 MEAN CORPUSCULAR HEMOGLOBIN (BEAKER) (test 32.1 pg 25.7-32.2 tpmn=375) MEAN CORPUSCULAR HEMOGLOBIN CONC (BEAKER) (test 32.2 GM/DL 32.3-36.5 mokf=780) RED CELL DISTRIBUTION WIDTH (BEAKER) (test 15.5 % 11.6-14.4 umtl=774) PLATELET COUNT (BEAKER) (test hnnp=933) 139 K/CU MM 150-450 MEAN PLATELET VOLUME (BEAKER) (test qupr=572) 9.1 fL 9.4-12.4 NUCLEATED RED BLOOD CELLS (BEAKER) (test 0 /100 WBC 0-0 nnkk=356) POCT-GLUCOSE [id number] 22:19:00 Test Item Value Reference Range Comments POC-GLUCOSE METER (BEAKER) 179 mg/dL 70-110 TESTED AT [address] (test lamj=4564) [place] [id number] POCT-GLUCOSE [id number] 17:39:00 Test Item Value Reference Range Comments POC-GLUCOSE METER (BEAKER) 181 mg/dL 70-110 TESTED AT [address] (test vbwi=7282) [facility] [address] POCT-GLUCOSE [id number] 13:14:00 Test Item Value Reference Range Comments POC-GLUCOSE METER (BEAKER) 102 mg/dL 70-110 TESTED AT [address] (test nmwg=9805) [facility] [address] RAD, CHEST, 1 VIEW, NON [id number] 08:56:00Reason for exam:->Post opShould this be performed at the bedside?->YesFINAL REPORT AP chest dated 12/29/2018 COMPARISON: 12/28/2018 Comment: Heart massively enlarged. Pulmonary vasculature is unremarkable. There is a small right pleural effusion. Loculated fluid is seen in the right minor fissure. Subsegmental atelectasis is seen in the right mid and lower lobe. The rest of the lungs are clear. Right IJ central venous catheter remain in place. IMPRESSION: No interval change. Signed: Edenilson Bloom MDReport Verified Date/Time : 12/29/2018 08:56:32 Reading Location: [facility] Radiology Reading Room Electronically signed by: EDENILSON BLOOM M.D.on 12/29/2018 08:56 AMPOCT- GLUCOSE [id number] 07:53:00 Test Item Value Reference Range Comments POC-GLUCOSE METER (BEAKER) 135 mg/dL 70-110 TESTED AT [facility] [address] (test ouzo=7390) [place] [address] [id number] 06:45:00 Test Item Value Reference Range Comments PARTIAL THROMBOPLASTIN TIME (BEAKER) (test 83.5 seconds 22.5-36.0 hyvp=240) While on warfarin.PROTHROMBIN TIME/[id number] 06:44:00 Test Item Value Reference Range Comments PROTIME (BEAKER) (test ddfc=076) 17.1 seconds 11.7-14.7 INR (BEAKER) (test hord=238) 1.5 <=5.9 RECOMMENDED COUMADIN/WARFARIN INR THERAPY RANGESSTANDARD DOSE: 2.0 - 3.0 Includes: PROPHYLAXIS forvenous thrombosis, systemic embolization; TREATMENT for venous thrombosis and/or pulmonary embolus.HIGH RISK: Target INR is 2.5-3.5 for patients with mechanical heart valves.While on warfarin.BASIC METABOLIC [id number] 05:56:00 Test Item Value Reference Range Comments SODIUM (BEAKER) (test 129 meq/L 136-145 fqnf=737) POTASSIUM (BEAKER) (test 4.2 meq/L 3.5-5.1 mkhy=422) CHLORIDE (BEAKER) (test 93 meq/L 98-107 cnhh=592) CO2 (BEAKER) (test 29 meq/L 22-29 izee=556) BLOOD UREA NITROGEN 31 mg/dL 7-21 (BEAKER) (test dask=704) CREATININE (BEAKER) (test 5.18 mg/dL 0.57-1.25 vzil=642) GLUCOSE RANDOM (BEAKER) 96 mg/dL 70-105 (test drvw=327) CALCIUM (BEAKER) (test 8.3 mg/dL 8.4-10.2 murq=581) EGFR (BEAKER) (test 14 mL/min/1.73 sq m ESTIMATED GFR IS NOT jxfz=5106) ACCURATE CREATININE CLEARANCE IN PREDICTING GLOMERULAR FILTRATION RATE. ESTIMATED GFR IS NOT APPLICABLE FOR DIALYSIS PATIENTS. CBC (HEMOGRAM ONLY)2018-12-29 05:22:00 Test Item Value Reference Range Comments WHITE BLOOD CELL COUNT (BEAKER) (test tqcu=920) 12.0 K/ L 3.5-10.5 RED BLOOD CELL COUNT (BEAKER) (test xmqr=423) 2.66 M/ L 4.63-6.08 HEMOGLOBIN (BEAKER) (test swig=089) 8.7 GM/DL 13.7-17.5 HEMATOCRIT (BEAKER) (test dssr=649) 26.6 % 40.1-51.0 MEAN CORPUSCULAR VOLUME (BEAKER) (test yiyx=580) 100.0 fL 79.0-92.2 MEAN CORPUSCULAR HEMOGLOBIN (BEAKER) (test 32.7 pg 25.7-32.2 vpqc=257) MEAN CORPUSCULAR HEMOGLOBIN CONC (BEAKER) (test 32.7 GM/DL 32.3-36.5 jhcq=619) RED CELL DISTRIBUTION WIDTH (BEAKER) (test 15.6 % 11.6-14.4 jukd=111) PLATELET COUNT (BEAKER) (test ezqh=291) 131 K/CU MM 150-450 MEAN PLATELET VOLUME (BEAKER) (test kghf=983) 9.1 fL 9.4-12.4 NUCLEATED RED BLOOD CELLS (BEAKER) (test 0 /100 WBC 0-0 ndvk=389) [id number] 00:01:00 Test Item Value Reference Range Comments PARTIAL THROMBOPLASTIN TIME (BEAKER) (test 78.5 seconds 22.5-36.0 fdwo=971) POCT-GLUCOSE [id number] 21:26:00 Test Item Value Reference Range Comments POC-GLUCOSE METER (BEAKER) 139 mg/dL 70-110 TESTED AT [address] (test kyby=0704) [facility] [address] POCT-GLUCOSE [id number] 17:58:00 Test Item Value Reference Range Comments POC-GLUCOSE METER (BEAKER) 146 mg/dL 70-110 TESTED AT [address] (test pstf=7279) [facility] [address] [id number] 17:16:00 Test Item Value Reference Range Comments PARTIAL THROMBOPLASTIN TIME (BEAKER) (test 34.5 seconds 22.5-36.0 gqvq=699) Prior to initiating heparinPOCT-GLUCOSE [id number] 12:54:00 Test Item Value Reference Range Comments POC-GLUCOSE METER (BEAKER) 133 mg/dL 70-110 TESTED AT [facility] [address] (test lpun=3924) [facility] [address] RAD, CHEST, 1 VIEW, NON [id number] 08:06:00Reason for exam:->Post opShould this be performed at the bedside?->YesFINAL REPORT Chest one view. Clinical history: Post op Comparison: 2018Discussion: A frontal chest is provided. Cardiomediastinal contours are unchanged. Lines and tubesare in stable position. Unchanged right-sided pleural-parenchymal opacities. Left lung is grossly clear. Vessels do not appear engorged. No pneumothorax. Signed: Dionicio Chery MDReport Verified Date/Time: 12/28/2018 08:06:07 Reading Location: [address] Neuro Reading Room BASIC METABOLIC [id number] 06:52:00 Test Item Value Reference Range Comments SODIUM (BEAKER) (test 130 meq/L 136-145 lkas=586) POTASSIUM (BEAKER) (test 3.9 meq/L 3.5-5.1 gniv=371) CHLORIDE (BEAKER) (test 94 meq/L 98-107 reot=760) CO2 (BEAKER) (test 29 meq/L 22-29 rrkl=962) BLOOD UREA NITROGEN 18 mg/dL 7-21 (BEAKER) (test ahjy=471) CREATININE (BEAKER) (test 3.73 mg/dL 0.57-1.25 hgao=325) GLUCOSE RANDOM (BEAKER) 104 mg/dL 70-105 (test pwcu=187) CALCIUM (BEAKER) (test 8.7 mg/dL 8.4-10.2 zwkp=220) EGFR (BEAKER) (test 20 mL/min/1.73 sq m ESTIMATED GFR IS NOT zyfp=8170) ACCURATE CREATININE CLEARANCE IN PREDICTING GLOMERULAR FILTRATION RATE. ESTIMATED GFR IS NOT APPLICABLE FOR DIALYSIS PATIENTS. PROTHROMBIN TIME/[id number] 06:31:00 Test Item Value Reference Range Comments PROTIME (BEAKER) (test eyzt=381) 19.4 seconds 11.7-14.7 INR (BEAKER) (test shgl=853) 1.7 <=5.9 RECOMMENDED COUMADIN/WARFARIN INR THERAPY RANGESSTANDARD DOSE: 2.0 - 3.0 Includes: PROPHYLAXIS forvenous thrombosis, systemic embolization; TREATMENT for venous thrombosis and/or pulmonary embolus.HIGH RISK: Target INR is 2.5-3.5 for patients with mechanical heart valves.CBC (HEMOGRAM ONLY)2018-12-28 06:09:00 Test Item Value Reference Range Comments WHITE BLOOD CELL COUNT (BEAKER) (test qmrt=544) 9.9 K/ L 3.5-10.5 RED BLOOD CELL COUNT (BEAKER) (test gwkr=691) 2.79 M/ L 4.63-6.08 HEMOGLOBIN (BEAKER) (test lpzs=398) 8.9 GM/DL 13.7-17.5 HEMATOCRIT (BEAKER) (test ijyu=979) 28.2 % 40.1-51.0 MEAN CORPUSCULAR VOLUME (BEAKER) (test wsyi=445) 101.1 fL 79.0-92.2 MEAN CORPUSCULAR HEMOGLOBIN (BEAKER) (test 31.9 pg 25.7-32.2 lxal=262) MEAN CORPUSCULAR HEMOGLOBIN CONC (BEAKER) (test 31.6 GM/DL 32.3-36.5 hwbb=618) RED CELL DISTRIBUTION WIDTH (BEAKER) (test 15.9 % 11.6-14.4 sdny=043) PLATELET COUNT (BEAKER) (test lmfl=793) 110 K/CU MM 150-450 MEAN PLATELET VOLUME (BEAKER) (test ydsf=575) 9.3 fL 9.4-12.4 NUCLEATED RED BLOOD CELLS (BEAKER) (test 0 /100 WBC 0-0 vdpw=194) POCT-GLUCOSE [id number] 21:41:00 Test Item Value Reference Range Comments POC-GLUCOSE METER (BEAKER) 163 mg/dL 70-110 TESTED AT [facility] [address] (test vfsp=9561) [facility] [address] POCT-GLUCOSE [id number] 17:23:00 Test Item Value Reference Range Comments POC-GLUCOSE METER (BEAKER) 119 mg/dL 70-110 TESTED AT [facility] [address] (test ddob=6697) [facility] [address] RAD, CHEST, 1 VIEW, NON [id number] 14:49:00Reason for exam:->Post opShould this be performed at the bedside?->YesFINAL REPORT Comparison: 12/26/2018 TECHNIQUE: Single view of the chest FINDINGS: Previous tiny right apical pneumothorax no longer seen. Trace right pleural effusion. Opacity in the right midlung which may represent fluid in the fissure again noted. Left lung is grossly clear. Interval placement of right internal jugular central line. Tip is at the cavoatrial junction. No othersignificant change. Signed: Kyle Rome MDReport Verified Date/Time: 12/27/2018 14:49:48 Reading Location: [address] Ortho Consult Reading Room ANG, NON-TUNNELED CATH > 5 Y.O. [id number] 14:17:00Reason for exam:->Central line placement, poor access, poor blood draw. ESRD. FYI patient has been on coumadinFINAL REPORT Central Venous Catheter Placement: Physician providing service:RoundAge: 63, Diagnosis: Requiring IV access, Indication: Requiring IV access Modality: Sonography and fluoroscopyConscious Sedation: No sedation Anesthesia: Two percent Lidocaine injected subcutaneously at the insertion site.Fluoro time (in minutes) and number of images: 0.4 minutes. Three images Approach: Right internal jugular vein For maximum sterile barrier protection a mask, cap, sterile gloves, sterile drape, sterile gown, and a cutaneous antiseptic was utilized. Technique: After informed written consent was obtained, the patient was prepped and draped in the usual sterile manner. Access was obtained using sonographic guidance. Ultrasound images were sent to PACS to document patency and compressibility. The right internal jugular vein was catheterized. A guide wire was advanced centrally. A 7 Kazakh 20 cm triple lumen catheter was advanced with its distal tip terminating in the right atrium. The ports were flushed and aspirated easily following placement. The catheter was sutured to the skin to secure its placement. Vital signs were monitored throughout the procedure by a nurse, and remained stable. The patient tolerated the procedure well and left the departmentin the same condition. Results: Spot radiograph of the chest demonstrates the new central line terminating in the right atrium. Impression: Successful, uncomplicated ultrasound and fluoroscopic guidedplacement of a right internal jugular central venous catheter terminating in the right atrium.Signed: Bonny Sykes Verified Date/Time: 12/27/2018 14:17:02 Reading Location: [facility] P048 Angio Body Reading Room Electronically signed by: BONNY SYKES M.D. on 02:17 [id number] 13:44:00 Test Item Value Reference Range Comments PARTIAL THROMBOPLASTIN TIME (BEAKER) (test 44.3 seconds 22.5-36.0 eemw=275) Prior to initiating heparinPOCT-GLUCOSE [id number] 13:27:00 Test Item Value Reference Range Comments POC-GLUCOSE METER (BEAKER) 127 mg/dL 70-110 TESTED AT [address] (test qsag=9589) [place] [id number] POCT-GLUCOSE [id number] 08:58:00 Test Item Value Reference Range Comments POC-GLUCOSE METER (BEAKER) 79 mg/dL 70-110 TESTED AT [address] (test zgex=5896) [place] [id number] BASIC METABOLIC [id number] 07:09:00 Test Item Value Reference Range Comments SODIUM (BEAKER) (test 135 meq/L 136-145 dokq=852) POTASSIUM (BEAKER) (test 3.8 meq/L 3.5-5.1 dwsm=997) CHLORIDE (BEAKER) (test 96 meq/L 98-107 hmfb=562) CO2 (BEAKER) (test 35 meq/L 22-29 lqmp=488) BLOOD UREA NITROGEN 18 mg/dL 7-21 (BEAKER) (test gskj=667) CREATININE (BEAKER) (test 4.91 mg/dL 0.57-1.25 aiys=658) GLUCOSE RANDOM (BEAKER) 81 mg/dL 70-105 (test dwhy=809) CALCIUM (BEAKER) (test 8.5 mg/dL 8.4-10.2 gftm=426) EGFR (BEAKER) (test 15 mL/min/1.73 sq m ESTIMATED GFR IS NOT ykyq=7200) ACCURATE CREATININE CLEARANCE IN PREDICTING GLOMERULAR FILTRATION RATE. ESTIMATED GFR IS NOT APPLICABLE FOR DIALYSIS PATIENTS. PROTHROMBIN TIME/[id number] 06:52:00 Test Item Value Reference Range Comments PROTIME (BEAKER) (test wgdz=298) 23.3 seconds 11.7-14.7 INR (BEAKER) (test bqpx=680) 2.0 <=5.9 RECOMMENDED COUMADIN/WARFARIN INR THERAPY RANGESSTANDARD DOSE: 2.0 - 3.0 Includes: PROPHYLAXIS forvenous thrombosis, systemic embolization; TREATMENT for venous thrombosis and/or pulmonary embolus.HIGH RISK: Target INR is 2.5-3.5 for patients with mechanical heart valves.CBC (HEMOGRAM ONLY)2018-12-27 06:28:00 Test Item Value Reference Range Comments WHITE BLOOD CELL COUNT (BEAKER) (test xjak=280) 7.1 K/ L 3.5-10.5 RED BLOOD CELL COUNT (BEAKER) (test qtwq=548) 2.16 M/ L 4.63-6.08 HEMOGLOBIN (BEAKER) (test ckic=148) 6.9 GM/DL 13.7-17.5 HEMATOCRIT (BEAKER) (test pohu=515) 22.5 % 40.1-51.0 MEAN CORPUSCULAR VOLUME (BEAKER) (test sakw=723) 104.2 fL 79.0-92.2 MEAN CORPUSCULAR HEMOGLOBIN (BEAKER) (test 31.9 pg 25.7-32.2 swol=533) MEAN CORPUSCULAR HEMOGLOBIN CONC (BEAKER) (test 30.7 GM/DL 32.3-36.5 yumh=633) RED CELL DISTRIBUTION WIDTH (BEAKER) (test 15.0 % 11.6-14.4 esok=257) PLATELET COUNT (BEAKER) (test xjcm=290) 90 K/CU MM 150-450 MEAN PLATELET VOLUME (BEAKER) (test vrof=427) 9.1 fL 9.4-12.4 NUCLEATED RED BLOOD CELLS (BEAKER) (test 0 /100 WBC 0-0 zktt=951) POCT-GLUCOSE [id number] 23:54:00 Test Item Value Reference Range Comments POC-GLUCOSE METER (BEAKER) 73 mg/dL 70-110 TESTED AT [address] (test nepc=8840) [facility] [id number] POCT-GLUCOSE [id number] 16:02:00 Test Item Value Reference Range Comments POC-GLUCOSE METER (BEAKER) 108 mg/dL 70-110 TESTED AT [address] (test dttj=6702) [facility] [id number] POCT-GLUCOSE [id number] 15:24:00 Test Item Value Reference Range Comments POC-GLUCOSE METER (BEAKER) 74 mg/dL 70-110 TESTED AT [address] (test vovp=2093) [facility] [address] POCT-GLUCOSE [id number] 10:29:00 Test Item Value Reference Range Comments POC-GLUCOSE METER (BEAKER) 88 mg/dL 70-110 TESTED AT [address] (test wzxv=2504) [facility] [address] RAD, CHEST, 1 VIEW, NON [id number] 07:33:00Reason for exam:->Post opShould this be performed at the bedside?->YesFINAL REPORT Portable chest. CLINICAL HISTORY: Post op. COMPARISON STUDY: Chest x- ray from yesterday. FINDINGS: The cardiac silhouette is enlarged. Sternotomy wires are seen. There has been valve replacement. The pulmonary parenchyma again demonstrate some loculated fluid along the minor fissure with airspace opacity in the right lung base and blunting of the right costophrenicangle, stable. The support lines and tubes are unchanged. A tiny right-sided apical pneumothorax remains. Degenerative changes are noted. IMPRESSION: No significant change. Signed: Sarah Beth Mejia [facility] Verified Date/Time: 2018 07:33:38 Reading Location: [facility] Radiology Reading Room BASIC METABOLIC [id number] 06:42:00 Test Item Value Reference Range Comments SODIUM (BEAKER) (test 137 meq/L 136-145 kfgn=102) POTASSIUM (BEAKER) (test 3.9 meq/L 3.5-5.1 wazv=169) CHLORIDE (BEAKER) (test 98 meq/L 98-107 mwfb=663) CO2 (BEAKER) (test 34 meq/L 22-29 kbni=457) BLOOD UREA NITROGEN 12 mg/dL 7-21 (BEAKER) (test mdrs=897) CREATININE (BEAKER) (test 3.18 mg/dL 0.57-1.25 wjed=106) GLUCOSE RANDOM (BEAKER) 89 mg/dL 70-105 (test mbdm=724) CALCIUM (BEAKER) (test 8.9 mg/dL 8.4-10.2 hflb=708) EGFR (BEAKER) (test 24 mL/min/1.73 sq m ESTIMATED GFR IS NOT bwhk=0671) ACCURATE CREATININE CLEARANCE IN PREDICTING GLOMERULAR FILTRATION RATE. ESTIMATED GFR IS NOT APPLICABLE FOR DIALYSIS PATIENTS. CBC (HEMOGRAM ONLY)2018-12-26 06:05:00 Test Item Value Reference Range Comments WHITE BLOOD CELL COUNT (BEAKER) (test qmmy=384) 6.3 K/ L 3.5-10.5 RED BLOOD CELL COUNT (BEAKER) (test gjor=331) 2.25 M/ L 4.63-6.08 HEMOGLOBIN (BEAKER) (test ivrv=033) 7.4 GM/DL 13.7-17.5 HEMATOCRIT (BEAKER) (test cpao=179) 23.1 % 40.1-51.0 MEAN CORPUSCULAR VOLUME (BEAKER) (test jxtr=257) 102.7 fL 79.0-92.2 MEAN CORPUSCULAR HEMOGLOBIN (BEAKER) (test 32.9 pg 25.7-32.2 cbcb=984) MEAN CORPUSCULAR HEMOGLOBIN CONC (BEAKER) (test 32.0 GM/DL 32.3-36.5 sagg=590) RED CELL DISTRIBUTION WIDTH (BEAKER) (test 15.0 % 11.6-14.4 lpse=104) PLATELET COUNT (BEAKER) (test zvsc=539) 84 K/CU MM 150-450 MEAN PLATELET VOLUME (BEAKER) (test ffbt=891) 8.6 fL 9.4-12.4 NUCLEATED RED BLOOD CELLS (BEAKER) (test 1 /100 WBC 0-0 pqaz=245) PROTHROMBIN [id number] 05:44:00 Test Item Value Reference Range Comments PROTIME (BEAKER) (test btun=884) 24.4 seconds 11.7-14.7 INR (BEAKER) (test mwhl=924) 2.2 <=5.9 RECOMMENDED COUMADIN/WARFARIN INR THERAPY RANGESSTANDARD DOSE: 2.0 - 3.0 Includes: PROPHYLAXIS forvenous thrombosis, systemic embolization; TREATMENT for venous thrombosis and/or pulmonary embolus.HIGH RISK: Target INR is 2.5-3.5 for patients with mechanical heart valves.POCT-GLUCOSE [id number] 00:06:00 Test Item Value Reference Range Comments POC-GLUCOSE METER (BEAKER) 88 mg/dL 70-110 TESTED AT [facility] [address] [facility] (test qeah=5850) [facility] [address] POCT-GLUCOSE [id number] 19:06:00 Test Item Value Reference Range Comments POC-GLUCOSE METER (BEAKER) 121 mg/dL 70-110 TESTED AT [address] (test cmyt=5733) [facility] [address] PROTHROMBIN [id number] 16:10:00 Test Item Value Reference Range Comments PROTIME (BEAKER) (test scrk=216) 30.1 seconds 11.7-14.7 INR (BEAKER) (test cwrh=002) 2.9 <=5.9 RECOMMENDED COUMADIN/WARFARIN INR THERAPY RANGESSTANDARD DOSE: 2.0 - 3.0 Includes: PROPHYLAXIS forvenous thrombosis, systemic embolization; TREATMENT for venous thrombosis and/or pulmonary embolus.HIGH RISK: Target INR is 2.5-3.5 for patients with mechanical heart valves.BASIC METABOLIC [id number] 16:10: 00 Test Item Value Reference Range Comments SODIUM (BEAKER) (test 128 meq/L 136-145 xyze=908) POTASSIUM (BEAKER) (test 4.9 meq/L 3.5-5.1 zoud=249) CHLORIDE (BEAKER) (test 92 meq/L 98-107 odvn=402) CO2 (BEAKER) (test 27 meq/L 22-29 kwyq=082) BLOOD UREA NITROGEN 37 mg/dL 7-21 (BEAKER) (test iwuu=137) CREATININE (BEAKER) (test 5.70 mg/dL 0.57-1.25 ykoe=846) GLUCOSE RANDOM (BEAKER) 108 mg/dL 70-105 (test bzxg=568) CALCIUM (BEAKER) (test 8.8 mg/dL 8.4-10.2 pobg=932) EGFR (BEAKER) (test 12 mL/min/1.73 sq m ESTIMATED GFR IS NOT wqqc=9659) ACCURATE CREATININE CLEARANCE IN PREDICTING GLOMERULAR FILTRATION RATE. ESTIMATED GFR IS NOT APPLICABLE FOR DIALYSIS PATIENTS. [id number] 16:09:00 Test Item Value Reference Range Comments MAGNESIUM (BEAKER) (test codl=536) 1.7 mg/dL 1.6-2.6 CBC (HEMOGRAM ONLY)2018-12-25 16:01:00 Test Item Value Reference Range Comments WHITE BLOOD CELL COUNT (BEAKER) (test uepd=732) 6.0 K/ L 3.5-10.5 RED BLOOD CELL COUNT (BEAKER) (test wcne=353) 2.35 M/ L 4.63-6.08 HEMOGLOBIN (BEAKER) (test zpcp=149) 7.7 GM/DL 13.7-17.5 HEMATOCRIT (BEAKER) (test qymo=673) 23.7 % 40.1-51.0 MEAN CORPUSCULAR VOLUME (BEAKER) (test llfm=645) 100.9 fL 79.0-92.2 MEAN CORPUSCULAR HEMOGLOBIN (BEAKER) (test 32.8 pg 25.7-32.2 kafo=752) MEAN CORPUSCULAR HEMOGLOBIN CONC (BEAKER) (test 32.5 GM/DL 32.3-36.5 rusv=150) RED CELL DISTRIBUTION WIDTH (BEAKER) (test 14.7 % 11.6-14.4 gomw=789) PLATELET COUNT (BEAKER) (test tzaa=835) 90 K/CU MM 150-450 MEAN PLATELET VOLUME (BEAKER) (test lfoc=893) 9.4 fL 9.4-12.4 NUCLEATED RED BLOOD CELLS (BEAKER) (test 1 /100 WBC 0-0 llmy=080) POCT-GLUCOSE [id number] 08:03:00 Test Item Value Reference Range Comments POC-GLUCOSE METER (BEAKER) 89 mg/dL 70-110 TESTED AT [facility] [address] [facility] (test roku=5463) [facility] [address] RAD, CHEST, 1 VIEW, NON [id number] 07:46:00Reason for exam:->Post opShould this be performed at the bedside?->YesFINAL REPORT Chest one view. Clinical history: Post op Comparison: 2018Discussion: A frontal chest is provided. Cardiomediastinal contours are unchanged. Stable appearance of pleural-parenchymal opacity at the right mid to lower lung. There is a tiny right apical pneumothorax, unchanged. Probable trace left effusion. Signed: Dionicio Chery Verified Date/Time: 07:46:01 Reading Location: [facility] Radiology Reading Room RAD, ABDOMEN/KUB , 1 VIEW [id number] 07:25:00Reason for exam:->abdominal distentionShould this be performed at the bedside?->YesFINAL REPORT Abdomen one view Comparison: January 18, 2018 Reason for exam: abdominal distention Findings: Bowel gas pattern is nonobstructive, nonspecific. No free air is identified. No suspicious calcification. No acute bony abnormality. Liver appears enlarged. There is pleuralparenchymal opacity in the mid to lower right lung. Signed: Dionicio Chery Verified Date/Time: 12/25/2018 07:25:40 Reading Location: [facility] Radiology Reading Room POCT-GLUCOSE [id number] 22 :06:00 Test Item Value Reference Range Comments POC-GLUCOSE METER (BEAKER) 102 mg/dL 70-110 TESTED AT [address] (test lvbu=2210) [facility] [address] POCT-GLUCOSE [id number] 18:44:00 Test Item Value Reference Range Comments POC-GLUCOSE METER (BEAKER) 100 mg/dL 70-110 TESTED AT [address] (test kmdm=9156) [place] [id number] POCT-GLUCOSE [id number] 14:54:00 Test Item Value Reference Range Comments POC-GLUCOSE METER (BEAKER) 103 mg/dL 70-110 TESTED AT [address] (test uofa=5119) [place] [id number] 08:07:00 Test Item Value Reference Range Comments FERRITIN (BEAKER) (test lniu=786) 2044 ng/mL 5-275 POCT-GLUCOSE [id number] 07:57:00 Test Item Value Reference Range Comments POC-GLUCOSE METER (BEAKER) 76 mg/dL 70-110 TESTED AT [facility] [address] (test msva=6961) [facility] [address] RAD, CHEST, 1 VIEW, NON [id number] 07:57:00Reason for exam:->Post opShould this be performed at the bedside?->YesFINAL REPORT Comparison: 12/23/2018 TECHNIQUE: Single view of the chest FINDINGS: Right-sided airspace disease and pleural effusion again noted, stable. There is a tiny right apical pneumothorax. Left retrocardiac opacity again noted. Lungs otherwise clear. Cardiac silhouette is enlarged. Postsurgical changes in the mediastinum noted. Signed: Kyle Rome MDReport Verified Date/Time: 12/24/2018 07:57:06 Reading Location: [facility] Radiology Reading Room CBC (HEMOGRAM ONLY) 07:23:00 Test Item Value Reference Range Comments WHITE BLOOD CELL COUNT (BEAKER) (test vhik=598) 5.2 K/ L 3.5-10.5 RED BLOOD CELL COUNT (BEAKER) (test uqvi=062) 2.35 M/ L 4.63-6.08 HEMOGLOBIN (BEAKER) (test ires=746) 7.6 GM/DL 13.7-17.5 HEMATOCRIT (BEAKER) (test eqyq=332) 24.6 % 40.1-51.0 MEAN CORPUSCULAR VOLUME (BEAKER) (test lrzq=616) 104.7 fL 79.0-92.2 MEAN CORPUSCULAR HEMOGLOBIN (BEAKER) (test 32.3 pg 25.7-32.2 pnip=370) MEAN CORPUSCULAR HEMOGLOBIN CONC (BEAKER) (test 30.9 GM/DL 32.3-36.5 yftj=404) RED CELL DISTRIBUTION WIDTH (BEAKER) (test 14.8 % 11.6-14.4 pbwb=464) PLATELET COUNT (BEAKER) (test lzst=885) 78 K/CU MM 150-450 MEAN PLATELET VOLUME (BEAKER) (test zegl=326) 9.8 fL 9.4-12.4 NUCLEATED RED BLOOD CELLS (BEAKER) (test 1 /100 WBC 0-0 hrem=606) BASIC METABOLIC [id number] 07:14:00 Test Item Value Reference Range Comments SODIUM (BEAKER) (test 131 meq/L 136-145 cdon=536) POTASSIUM (BEAKER) (test 4.9 meq/L 3.5-5.1 gour=515) CHLORIDE (BEAKER) (test 93 meq/L 98-107 jhuk=108) CO2 (BEAKER) (test 34 meq/L 22-29 crqg=988) BLOOD UREA NITROGEN 24 mg/dL 7-21 (BEAKER) (test fbfg=997) CREATININE (BEAKER) (test 4.11 mg/dL 0.57-1.25 lejr=598) GLUCOSE RANDOM (BEAKER) 94 mg/dL 70-105 (test swsi=890) CALCIUM (BEAKER) (test 8.8 mg/dL 8.4-10.2 jtqh=660) EGFR (BEAKER) (test 18 mL/min/1.73 sq m ESTIMATED GFR IS NOT wdxf=6393) ACCURATE CREATININE CLEARANCE IN PREDICTING GLOMERULAR FILTRATION RATE. ESTIMATED GFR IS NOT APPLICABLE FOR DIALYSIS PATIENTS. [id number] 07:08:00 Test Item Value Reference Range Comments MAGNESIUM (BEAKER) (test vuen=734) 1.8 mg/dL 1.6-2.6 IRON, TIBC, % SAT. (WITHOUT FERRITIN)2018-12-24 07:07:00 Test Item Value Reference Range Comments IRON (BEAKER) (test wqvy=786) 35.0 ug/dL 40.0-160.0 TOTAL IRON BINDING CAPACITY (BEAKER) (test 150 ug/dL 250-450 qeup=272) IRON % SATURATION (2) (BEAKER) (test fhiw=1671) 23 % 20-55 PROTHROMBIN [id number] 07:05:00 Test Item Value Reference Range Comments PROTIME (BEAKER) (test xpnh=258) 38.7 seconds 11.7-14.7 INR (BEAKER) (test wxru=397) 3.9 <=5.9 RECOMMENDED COUMADIN/WARFARIN INR THERAPY RANGESSTANDARD DOSE: 2.0 - 3.0 Includes: PROPHYLAXIS forvenous thrombosis, systemic embolization; TREATMENT for venous thrombosis and/or pulmonary embolus.HIGH RISK: Target INR is 2.5-3.5 for patients with mechanical heart valves.POCT-GLUCOSE [id number] 00:26:00 Test Item Value Reference Range Comments POC-GLUCOSE METER (BEAKER) 86 mg/dL 70-110 TESTED AT [address] (test bxso=2591) [place] [id number] POCT-GLUCOSE [id number] 00:26:00 Test Item Value Reference Range Comments POC-GLUCOSE METER (BEAKER) 137 mg/dL 70-110 TESTED AT [address] (test eipd=5278) [place] [address] POCT-GLUCOSE [id number] 16:07:00 Test Item Value Reference Range Comments POC-GLUCOSE METER (BEAKER) 72 mg/dL 70-110 TESTED AT [address] (test utsm=8555) [place] [address] POCT-GLUCOSE [id number] 16:07:00 Test Item Value Reference Range Comments POC-GLUCOSE METER (BEAKER) 61 mg/dL 70-110 TESTED AT [address] (test gxcg=2549) [place] [address] POCT-GLUCOSE [id number] 11:27:00 Test Item Value Reference Range Comments POC-GLUCOSE METER (BEAKER) 82 mg/dL 70-110 TESTED AT [address] (test vzuk=2517) [place] [address] POCT-GLUCOSE [id number] 10:32:00 Test Item Value Reference Range Comments POC-GLUCOSE METER (BEAKER) 43 mg/dL 70-110 TESTED AT [address] (test oezp=4055) [place] [address] BASIC METABOLIC [id number] 07:28:00 Test Item Value Reference Range Comments SODIUM (BEAKER) (test 132 meq/L 136-145 fwvw=382) POTASSIUM (BEAKER) (test 5.4 meq/L 3.5-5.1 Specimen slightly csxi=219) hemolyzed CHLORIDE (BEAKER) (test 95 meq/L 98-107 ditp=155) CO2 (BEAKER) (test 24 meq/L 22-29 hqhm=658) BLOOD UREA NITROGEN 52 mg/dL 7-21 (BEAKER) (test tpoi=522) CREATININE (BEAKER) (test 5.91 mg/dL 0.57-1.25 Specimen slightly renv=409) hemolyzed GLUCOSE RANDOM (BEAKER) 49 mg/dL 70-105 (test ypzc=303) CALCIUM (BEAKER) (test 9.1 mg/dL 8.4-10.2 ctxl=792) EGFR (BEAKER) (test 12 mL/min/1.73 sq m ESTIMATED GFR IS NOT pmpv=5108) ACCURATE CREATININE CLEARANCE IN PREDICTING GLOMERULAR FILTRATION RATE. ESTIMATED GFR IS NOT APPLICABLE FOR DIALYSIS PATIENTS. [id number] 07:24:00 Test Item Value Reference Range Comments MAGNESIUM (BEAKER) (test 2.0 mg/dL 1.6-2.6 Specimen slightly hemolyzed oktm=008) [id number] 07:24:00 Test Item Value Reference Range Comments PHOSPHORUS (BEAKER) (test 4.4 mg/dL 2.3-4.7 Specimen slightly hemolyzed skga=488) PROTHROMBIN [id number] 07:20:00 Test Item Value Reference Range Comments PROTIME (BEAKER) (test djdd=721) 57.8 seconds 11.7-14.7 INR (BEAKER) (test cysg=225) 6.8 <=5.9 RECOMMENDED COUMADIN/WARFARIN INR THERAPY RANGESSTANDARD DOSE: 2.0 - 3.0 Includes: PROPHYLAXIS forvenous thrombosis, systemic embolization; TREATMENT for venous thrombosis and/or pulmonary embolus.HIGH RISK: Target INR is 2.5-3.5 for patients with mechanical heart valves.While on warfarin.CBC (HEMOGRAM ONLY) 2018-12-23 07:01:00 Test Item Value Reference Range Comments WHITE BLOOD CELL COUNT (BEAKER) (test dokp=881) 4.6 K/ L 3.5-10.5 RED BLOOD CELL COUNT (BEAKER) (test tnkj=014) 2.49 M/ L 4.63-6.08 HEMOGLOBIN (BEAKER) (test ybwt=768) 8.2 GM/DL 13.7-17.5 HEMATOCRIT (BEAKER) (test rjeo=102) 25.8 % 40.1-51.0 MEAN CORPUSCULAR VOLUME (BEAKER) (test mhnz=447) 103.6 fL 79.0-92.2 MEAN CORPUSCULAR HEMOGLOBIN (BEAKER) (test 32.9 pg 25.7-32.2 stxg=621) MEAN CORPUSCULAR HEMOGLOBIN CONC (BEAKER) (test 31.8 GM/DL 32.3-36.5 mhes=219) RED CELL DISTRIBUTION WIDTH (BEAKER) (test 15.0 % 11.6-14.4 bpvi=675) PLATELET COUNT (BEAKER) (test lzzu=123) 79 K/CU MM 150-450 MEAN PLATELET VOLUME (BEAKER) (test pndp=264) 9.6 fL 9.4-12.4 NUCLEATED RED BLOOD CELLS (BEAKER) (test 1 /100 WBC 0-0 gdsp=751) RAD, CHEST, 1 VIEW, NON [id number] 04:22:00Reason for exam:->Post opShould this be performed at the bedside?->YesFINAL REPORT Chest one view. Clinical history: Post op Comparison: Chest radiograph /. Technique: A single frontal view of the chest was obtained. Findings:The patient is status post median sternotomy. There is a cardiac valve prosthesis. There is a left atrial appendage occlusion device.The cardiomediastinal contours are stable. There are bilateral airspace opacities, decreased in the interval. There is a persistent loculated small right pleural effusion. There is no no definite pneumothorax. Signed: Raz Taylor MDReport Verified Date/Time: 12/23/2018 04:22:43 Reading Location: [facility] C013Y CT Body Reading Room POCT-GLUCOSE [id number] 03:01:00 Test Item Value Reference Range Comments POC-GLUCOSE METER (BEAKER) 85 mg/dL 70-110 TESTED AT [facility] [address] [place] [address] (test ffmx=6897) [facility] [address] BASIC METABOLIC [id number] 18:52:00 Test Item Value Reference Range Comments SODIUM (BEAKER) (test 133 meq/L 136-145 gsoe=021) POTASSIUM (BEAKER) (test 5.2 meq/L 3.5-5.1 Specimen slightly hmha=585) hemolyzed CHLORIDE (BEAKER) (test 94 meq/L 98-107 abzq=010) CO2 (BEAKER) (test 26 meq/L 22-29 xzmw=498) BLOOD UREA NITROGEN 43 mg/dL 7-21 (BEAKER) (test hmgo=011) CREATININE (BEAKER) (test 5.20 mg/dL 0.57-1.25 Specimen slightly kaks=305) hemolyzed GLUCOSE RANDOM (BEAKER) 66 mg/dL 70-105 (test zrft=333) CALCIUM (BEAKER) (test 9.5 mg/dL 8.4-10.2 iwks=857) EGFR (BEAKER) (test 14 mL/min/1.73 sq m ESTIMATED GFR IS NOT hais=2167) ACCURATE CREATININE CLEARANCE IN PREDICTING GLOMERULAR FILTRATION RATE. ESTIMATED GFR IS NOT APPLICABLE FOR DIALYSIS PATIENTS. CBC (HEMOGRAM ONLY)2018-12-22 17:50:00 Test Item Value Reference Range Comments WHITE BLOOD CELL COUNT (BEAKER) (test hetu=673) 4.8 K/ L 3.5-10.5 RED BLOOD CELL COUNT (BEAKER) (test dfid=746) 2.88 M/ L 4.63-6.08 HEMOGLOBIN (BEAKER) (test yvpt=758) 9.4 GM/DL 13.7-17.5 HEMATOCRIT (BEAKER) (test igfk=952) 30.2 % 40.1-51.0 MEAN CORPUSCULAR VOLUME (BEAKER) (test dyol=902) 104.9 fL 79.0-92.2 MEAN CORPUSCULAR HEMOGLOBIN (BEAKER) (test 32.6 pg 25.7-32.2 psrj=306) MEAN CORPUSCULAR HEMOGLOBIN CONC (BEAKER) (test 31.1 GM/DL 32.3-36.5 tvih=205) RED CELL DISTRIBUTION WIDTH (BEAKER) (test 15.1 % 11.6-14.4 wekf=453) PLATELET COUNT (BEAKER) (test szjs=952) 115 K/CU MM 150-450 MEAN PLATELET VOLUME (BEAKER) (test yqcl=238) 9.9 fL 9.4-12.4 NUCLEATED RED BLOOD CELLS (BEAKER) (test 1 /100 WBC 0-0 xkbz=885) ANAEROBIC [id number] 17:00:00 Test Item Value Reference Range Comments CULTURE (BEAKER) (test qelu=5733) No anaerobes isolated RAD, CHEST, 1 VIEW, NON [id number] 07:44:00Reason for exam:->Post opShould this be performed at the bedside?->YesFINAL REPORT Chest, one view. HISTORY: Post op COMPARISON: Radiograph from 2018 IMPRESSION: Interval removal of a right chest tube and mediastinal drain. There is likely atrace right apical pneumothorax. A short-term follow-up chest radiograph is recommended. The small bilateral pleural effusions and right basilar subsegmental atelectasis are unchanged. A small left pleural effusion is unchanged. Unchanged interstitial pulmonary edema. The cardiac silhouette is unchanged. No acute bony abnormality. The findings were discussed with the patient's nurse, Sally Mariano, on 12/22/2018 at 7:43 AM who stated that she would tell the doctor. Signed: Katherine Arteaga Verified Date/Time: 2018 07:44:12 Reading Location: [facility] Radiology Reading Room PROTHROMBIN TIME/[id number] 04:31:00 Test Item Value Reference Range Comments PROTIME (BEAKER) (test cbal=320) 63.0 seconds 11.7-14.7 INR (BEAKER) (test otns=669) 7.6 <=5.9 RECOMMENDED COUMADIN/WARFARIN INR THERAPY RANGESSTANDARD DOSE: 2.0 - 3.0 Includes: PROPHYLAXIS forvenous thrombosis, systemic embolization; TREATMENT for venous thrombosis and/or pulmonary embolus.HIGH RISK: Target INR is 2.5-3.5 for patients with mechanical heart valves.While on warfarin.POCT-GLUCOSE [id number] 22:29:00 Test Item Value Reference Range Comments POC-GLUCOSE METER (BEAKER) 141 mg/dL 70-110 TESTED AT [facility] [address] (test ceub=9772) [facility] [address] POCT-GLUCOSE [id number] 13:22:00 Test Item Value Reference Range Comments POC-GLUCOSE METER (BEAKER) 100 mg/dL 70-110 TESTED AT [address] (test luhq=6750) [facility] [address] RAD, CHEST, 1 VIEW, NON [id number] 08:01:00Reason for exam:->Post opShould this be performed at the bedside?->YesFINAL REPORT RAD, CHEST, 1 VIEW, NON DEPT INDICATION: Post op COMPARISON: Prior day' s exam FINDINGS: Portable frontal view of the chest. IMPRESSION: Support Lines: Right-sidedchest tubes are unchanged. Sternotomy wires are unchanged. Lungs and pleura: Right mid and lower lung airspace disease is unchanged. Left retrocardiac airspace disease is unchanged. Small right apical pneumothorax is unchangedHeart and mediastinum: Stable contours. Stable surgical changes.Additional findings: None. Signed: Radha Lisa Verified Date/Time: 12/21/2018 08:01:46 Reading Location: [address] Neuro Reading Room 08: 01 AMPROTHROMBIN TIME/[id number] 05:30:00 Test Item Value Reference Range Comments PROTIME (BEAKER) (test vnku=196) 39.1 seconds 11.7-14.7 INR (BEAKER) (test irgg=825) 4.0 <=5.9 RECOMMENDED COUMADIN/WARFARIN INR THERAPY RANGESSTANDARD DOSE: 2.0 - 3.0 Includes: PROPHYLAXIS forvenous thrombosis, systemic embolization; TREATMENT for venous thrombosis and/or pulmonary embolus.HIGH RISK: Target INR is 2.5-3.5 for patients with mechanical heart valves.While on warfarin.POCT-GLUCOSE [id number] 22:10:00 Test Item Value Reference Range Comments POC-GLUCOSE METER (BEAKER) 98 mg/dL 70-110 TESTED AT [address] (test gkir=5197) [place] [id number] POCT-GLUCOSE [id number] 17:40:00 Test Item Value Reference Range Comments POC-GLUCOSE METER (BEAKER) 91 mg/dL 70-110 TESTED AT [address] (test cymh=7172) [place] [id number] POCT-GLUCOSE [id number] 13:13:00 Test Item Value Reference Range Comments POC-GLUCOSE METER (BEAKER) 73 mg/dL 70-110 TESTED AT [facility] [address] (test nrig=9113) [facility] [address] SURGICALLY OBTAINED CULTURE + GRAM [id number] 08:41:00 Test Item Value Reference Range Comments CULTURE (BEAKER) (test cetk=0352) No growth GRAM STAIN RESULT (BEAKER) (test No White blood cells seen lfwm=8632) GRAM STAIN RESULT (BEAKER) (test No organisms seen nbqc=93515) RAD, CHEST, 1 VIEW, NON [id number] 08:20:00Reason for exam:->Post opShould this be performed at the bedside?->YesFINAL REPORT RAD, CHEST, 1 VIEW, NON DEPT INDICATION: Post op COMPARISON: Prior day' s exam FINDINGS: Portable frontal view of the chest. IMPRESSION: Support Lines: Right-sidedchest tubes are unchanged. Sternotomy wires are unchanged. Lungs and pleura: Right mid and lower lung airspace disease is unchanged. Left retrocardiac airspace disease is unchanged. Small right apical pneumothorax is unchangedHeart and mediastinum: Stable contours. Stable surgical changes.Additional findings: None. Signed: Radha Lisa MDRepdamion Verified Date/Time: 12/20/2018 08:20:58 Reading Location: [address] Neuro Reading Room 08: 20 AMBASIC METABOLIC [id number] 08:09:00 Test Item Value Reference Range Comments SODIUM (BEAKER) (test 132 meq/L 136-145 srpn=000) POTASSIUM (BEAKER) (test 4.6 meq/L 3.5-5.1 yvov=222) CHLORIDE (BEAKER) (test 95 meq/L 98-107 tplg=071) CO2 (BEAKER) (test 28 meq/L 22-29 drtt=317) BLOOD UREA NITROGEN 35 mg/dL 7-21 (BEAKER) (test qyma=284) CREATININE (BEAKER) (test 4.94 mg/dL 0.57-1.25 kwth=421) GLUCOSE RANDOM (BEAKER) 122 mg/dL 70-105 (test ygys=226) CALCIUM (BEAKER) (test 9.2 mg/dL 8.4-10.2 bupe=485) EGFR (BEAKER) (test 15 mL/min/1.73 sq m ESTIMATED GFR IS NOT mqqr=3359) ACCURATE CREATININE CLEARANCE IN PREDICTING GLOMERULAR FILTRATION RATE. ESTIMATED GFR IS NOT APPLICABLE FOR DIALYSIS PATIENTS. [id number] 08:00:00 Test Item Value Reference Range Comments PHOSPHORUS (BEAKER) (test zifj=195) 4.5 mg/dL 2.3-4.7 CALCIUM, [id number] 07:20:00 Test Item Value Reference Range Comments CALCIUM IONIZED (BEAKER) (test smqn=099) 1.04 mmol/L 1.12-1.27 PH, BLOOD (BEAKER) (test usvb=5582) 7.35 PROTHROMBIN [id number] 07:04:00 Test Item Value Reference Range Comments PROTIME (BEAKER) (test wyjq=674) 21.1 seconds 11.7-14.7 INR (BEAKER) (test bvwi=962) 1.8 <=5.9 RECOMMENDED COUMADIN/WARFARIN INR THERAPY RANGESSTANDARD DOSE: 2.0 - 3.0 Includes: PROPHYLAXIS forvenous thrombosis, systemic embolization; TREATMENT for venous thrombosis and/or pulmonary embolus.HIGH RISK: Target INR is 2.5-3.5 for patients with mechanical heart valves.While on warfarin.CBC (HEMOGRAM ONLY) 2018-12-20 06:55:00 Test Item Value Reference Range Comments WHITE BLOOD CELL COUNT (BEAKER) (test kbdy=297) 9.4 K/ L 3.5-10.5 RED BLOOD CELL COUNT (BEAKER) (test boji=415) 2.65 M/ L 4.63-6.08 HEMOGLOBIN (BEAKER) (test auxz=284) 8.8 GM/DL 13.7-17.5 HEMATOCRIT (BEAKER) (test zqmz=962) 27.5 % 40.1-51.0 MEAN CORPUSCULAR VOLUME (BEAKER) (test ehpz=623) 103.8 fL 79.0-92.2 MEAN CORPUSCULAR HEMOGLOBIN (BEAKER) (test 33.2 pg 25.7-32.2 cuel=574) MEAN CORPUSCULAR HEMOGLOBIN CONC (BEAKER) (test 32.0 GM/DL 32.3-36.5 bwid=682) RED CELL DISTRIBUTION WIDTH (BEAKER) (test 15.4 % 11.6-14.4 zypz=139) PLATELET COUNT (BEAKER) (test bqlz=880) 118 K/CU MM 150-450 MEAN PLATELET VOLUME (BEAKER) (test epao=021) 9.7 fL 9.4-12.4 NUCLEATED RED BLOOD CELLS (BEAKER) (test 0 /100 WBC 0-0 zjxp=752) POCT-GLUCOSE [id number] 22:00:00 Test Item Value Reference Range Comments POC-GLUCOSE METER (BEAKER) 188 mg/dL 70-110 TESTED AT [address] (test bqaj=4490) [place] [address] TISSUE [id number] 18:15:00Surgical Pathology Report Case: [id number] Authorizing Provider: Moiz Vargas, Collected: 12/17/2018 0950 OrderingLocation: [facility] Received: 2018 [address] [employer] Pathologist: Kwan Perla MD Specimen: Pleural, Right, RIGHT PLEURAL PEEL PLEURA, RIGHT, DECORTICATION - MILD CHRONIC INFLAMMATION AND GRANULATION TISSUE- ORGANIZING BLOOD CLOTS- NO MALIGNANT CELLS IDENTIFIED Signing Pathologist Direct Phone Line: [phone] Correlation with microbiology cultures is recommended.[id number] effusion and other conditions classified elsewhereRight pleural peelThe specimen is received in a formalin-filled container labeled with the patient's information and labeled "right pleural peel" and consists of multiple fragments of porter-red, dusky, firm tissue measuring 6 x 5 x 0.4 cm in aggregate. Nutritional Assistant sections are submitted in A1-A3. CG/ew Performed.POCT-GLUCOSE [id number] 17 :11:00 Test Item Value Reference Range Comments POC-GLUCOSE METER (BEAKER) 126 mg/dL 70-110 TESTED AT [address] (test quvx=2498) [place] [address] POCT-GLUCOSE [id number] 12:57:00 Test Item Value Reference Range Comments POC-GLUCOSE METER (BEAKER) 143 mg/dL 70-110 [address]ED AT [address] (test dsjs=0451) [facility] [address] POCT-GLUCOSE [id number] 07:27:00 Test Item Value Reference Range Comments POC-GLUCOSE METER (BEAKER) 141 mg/dL 70-110 TESTED AT [facility] [address] (test wdyz=2120) [facility] [address] CALCIUM, [id number] 06:29:00 Test Item Value Reference Range Comments CALCIUM IONIZED (BEAKER) (test bhey=988) 1.00 mmol/L 1.12-1.27 PH, BLOOD (BEAKER) (test kojn=6786) 7.45 RAD, CHEST, 1 VIEW, NON [id number] 04:54:00Reason for exam:->Post opShould this be performed at the bedside?->YesFINAL REPORT Chest one view. Clinical history: Post op Comparison: Chest radiograph 12/18/2018 Technique: A single frontal view of the chest was obtained. Findings: There has been interval movable of right IJ central line.Again seen are two right-sided chest tubes unchanged in position. There is a small lucency in the right midlung which may represent a cavity, pneumatocele orloculated pneumothorax. There is thickening of the minor fissure. There is a small right pleural effusion. There are persistent bibasilar airspace opacities , right greater than left.The cardiomediastinal contours are stable. 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 There are median sternotomy wires. Signed: Raz Taylor [facility] Verified Date/ Time: 12/19/2018 04:54:49 Reading Location: [facility] B1 C013Y CT Body Reading Room BASIC METABOLIC [id number] 04:19:00 Test Item Value Reference Range Comments SODIUM (BEAKER) (test 132 meq/L 136-145 hctc=686) POTASSIUM (BEAKER) (test 4.0 meq/L 3.5-5.1 luwv=980) CHLORIDE (BEAKER) (test 96 meq/L 98-107 nuhh=679) CO2 (BEAKER) (test 28 meq/L 22-29 uriv=817) BLOOD UREA NITROGEN 18 mg/dL 7-21 (BEAKER) (test afzm=439) CREATININE (BEAKER) (test 3.49 mg/dL 0.57-1.25 ceao=604) GLUCOSE RANDOM (BEAKER) 139 mg/dL 70-105 (test qujq=228) CALCIUM (BEAKER) (test 8.9 mg/dL 8.4-10.2 xbvc=754) EGFR (BEAKER) (test 22 mL/min/1.73 sq m ESTIMATED GFR IS NOT xxse=3656) ACCURATE CREATININE CLEARANCE IN PREDICTING GLOMERULAR FILTRATION RATE. ESTIMATED GFR IS NOT APPLICABLE FOR DIALYSIS PATIENTS. [id number] 04:16:00 Test Item Value Reference Range Comments PHOSPHORUS (BEAKER) (test rggw=632) 3.4 mg/dL 2.3-4.7 PROTHROMBIN [id number] 04:06:00 Test Item Value Reference Range Comments PROTIME (BEAKER) (test bodm=863) 20.9 seconds 11.7-14.7 INR (BEAKER) (test tdmm=615) 1.8 <=5.9 RECOMMENDED COUMADIN/WARFARIN INR THERAPY RANGESSTANDARD DOSE: 2.0 - 3.0 Includes: PROPHYLAXIS forvenous thrombosis, systemic embolization; TREATMENT for venous thrombosis and/or pulmonary embolus.HIGH RISK: Target INR is 2.5-3.5 for patients with mechanical heart valves.CBC (HEMOGRAM ONLY)2018-12-19 03:56:00 Test Item Value Reference Range Comments WHITE BLOOD CELL COUNT (BEAKER) (test ovra=915) 9.7 K/ L 3.5-10.5 RED BLOOD CELL COUNT (BEAKER) (test nxne=286) 2.56 M/ L 4.63-6.08 HEMOGLOBIN (BEAKER) (test nnsm=200) 8.5 GM/DL 13.7-17.5 HEMATOCRIT (BEAKER) (test flrl=382) 26.3 % 40.1-51.0 MEAN CORPUSCULAR VOLUME (BEAKER) (test ymyj=353) 102.7 fL 79.0-92.2 MEAN CORPUSCULAR HEMOGLOBIN (BEAKER) (test 33.2 pg 25.7-32.2 xsxn=999) MEAN CORPUSCULAR HEMOGLOBIN CONC (BEAKER) (test 32.3 GM/DL 32.3-36.5 onmg=577) RED CELL DISTRIBUTION WIDTH (BEAKER) (test 15.7 % 11.6-14.4 axta=698) PLATELET COUNT (BEAKER) (test yebq=410) 114 K/CU MM 150-450 MEAN PLATELET VOLUME (BEAKER) (test llqx=335) 9.8 fL 9.4-12.4 NUCLEATED RED BLOOD CELLS (BEAKER) (test 0 /100 WBC 0-0 megk=710) POCT-GLUCOSE [id number] 22:11:00 Test Item Value Reference Range Comments POC-GLUCOSE METER (BEAKER) 149 mg/dL 70-110 TESTED AT [address] (test kemq=1894) [place] [address] POCT-GLUCOSE [id number] 17:52:00 Test Item Value Reference Range Comments POC-GLUCOSE METER (BEAKER) 122 mg/dL 70-110 TESTED AT [address] (test cwie=6264) [place] [address] POCT-GLUCOSE [id number] 14:26:00 Test Item Value Reference Range Comments POC-GLUCOSE METER (BEAKER) 98 mg/dL 70-110 TESTED AT [address] (test ipyz=8976) [place] [id number] HEMOGLOBIN AND [id number] 12:47:00 Test Item Value Reference Range Comments HEMOGLOBIN (BEAKER) (test fpxz=085) 9.2 GM/DL 13.7-17.5 HEMATOCRIT (BEAKER) (test bina=577) 28.3 % 40.1-51.0 POCT-GLUCOSE [id number] 09:38:00 Test Item Value Reference Range Comments POC-GLUCOSE METER (BEAKER) 73 mg/dL 70-110 TESTED AT [address] (test mxcy=8226) [place] [id number] PROTEIN ELECTROPHORESIS, [id number] 09:21:00 Test Item Value Reference Range Comments ALBUMIN FRACTION (BEAKER) 3.2 g/dL 3.5-5.5 (test pbwy=481) ALPHA 1 FRACTION (BEAKER) 0.4 g/dL 0.2-0.4 (test mlqu=489) ALPHA 2 FRACTION (BEAKER) 0.6 g/dL 0.5-0.9 (test yhdg=561) BETA FRACTION (BEAKER) (test 1.1 g/dL 0.6-1.1 mjjx=319) GAMMA GLOBULIN FRACTION 2.2 g/dL 0.7-1.7 (BEAKER) (test tvzo=125) INTERPRETATION-119 (BEAKER) Mild polyclonal elevation of (test getx=2281) gamma fraction, suggesting component of chronic inflammation. No monoclonal bands detected. GQHW-LJCOOMZBYNO-966 (BEAKER) Amanda De Jesus MD (test nsvy=6326) (electronic signature) PROTEIN TOTAL SERUM, SPEP 7.5 gm/dL 6.0-8.3 (BEAKER) (test hfsy=6508) RAD, CHEST, 1 VIEW, NON [id number] 06:47:00Reason for exam:->Post opShould this be performed at the bedside?->YesFINAL REPORT Chest one view. Clinical history: Post op Comparison: Chest radiograph 12/17/2018 Technique: A single frontal view of the chest was obtained. Findings:There are tworight-sided chest tubes with tips in the lung apices. There is a right IJ central venous catheter with tip in the proximal right atrium. The patient is status post median sternotomy. There is a left atrial appendage occlusion device. There is is a cardiac valve prosthesis. There is stable enlargement of the cardiac silhouette. There are small bilateral pleural effusions, right greater than left. There are airspace opacities in the bilateral lung bases (right greater than left), which may represent pneumonia and/or atelectasis. There are mild bilateral congestive changes. There is no definite pneumothorax. There is subcutaneous emphysema in the right chest wall and lower neck. Signed: Raz Taylor MDReport Verified Date/Time: 12/18/2018 06:47:21 Reading Location: [facility] B1 C013Y CT Body Reading Room Electronically signed by: RAZ TAYLOR MD on 2018 06:47 [id number] 06:20:00 Test Item Value Reference Range Comments MAGNESIUM (BEAKER) (test jbrq=385) 2.2 mg/dL 1.6-2.6 CALCIUM, [id number] 06:00:00 Test Item Value Reference Range Comments CALCIUM IONIZED (BEAKER) (test sras=005) 1.09 mmol/L 1.12-1.27 PH, BLOOD (BEAKER) (test mdsu=2287) 7.34 BASIC METABOLIC [id number] 05:07:00 Test Item Value Reference Range Comments SODIUM (BEAKER) (test 136 meq/L 136-145 kvro=746) POTASSIUM (BEAKER) (test 5.0 meq/L 3.5-5.1 xvoq=907) CHLORIDE (BEAKER) (test 100 meq/L 98-107 grdq=509) CO2 (BEAKER) (test 25 meq/L 22-29 utlk=251) BLOOD UREA NITROGEN 34 mg/dL 7-21 (BEAKER) (test fvzj=288) CREATININE (BEAKER) (test 6.00 mg/dL 0.57-1.25 uxnr=186) GLUCOSE RANDOM (BEAKER) 91 mg/dL 70-105 (test jyel=118) CALCIUM (BEAKER) (test 9.1 mg/dL 8.4-10.2 mhjj=171) EGFR (BEAKER) (test 12 mL/min/1.73 sq m ESTIMATED GFR IS NOT nwef=8043) ACCURATE CREATININE CLEARANCE IN PREDICTING GLOMERULAR FILTRATION RATE. ESTIMATED GFR IS NOT APPLICABLE FOR DIALYSIS PATIENTS. [id number] 04:54:00 Test Item Value Reference Range Comments PHOSPHORUS (BEAKER) (test xvpy=412) 6.3 mg/dL 2.3-4.7 HEPATIC FUNCTION [id number] 04:54:00 Test Item Value Reference Range Comments TOTAL PROTEIN (BEAKER) (test ogni=925) 6.8 gm/dL 6.0-8.3 ALBUMIN (BEAKER) (test seeq=2569) 3.1 g/dL 3.5-5.0 BILIRUBIN TOTAL (BEAKER) (test vkfv=501) 1.0 mg/dL 0.2-1.2 BILIRUBIN DIRECT (BEAKER) (test abzp=856) 0.8 mg/dL 0.1-0.5 ALKALINE PHOSPHATASE (BEAKER) (test zutk=729) 58 U/L 40-150 AST (SGOT) (BEAKER) (test favv=923) 29 U/L 5-34 ALT (SGPT) (BEAKER) (test ehbx=794) 23 U/L 6-55 [id number] 04:51:00 Test Item Value Reference Range Comments PARTIAL THROMBOPLASTIN TIME (BEAKER) (test 38.6 seconds 22.5-36.0 mczc=432) PROTHROMBIN [id number] 04:50:00 Test Item Value Reference Range Comments PROTIME (BEAKER) (test bgue=261) 16.0 seconds 11.7-14.7 INR (BEAKER) (test unyr=777) 1.3 <=5.9 RECOMMENDED COUMADIN/WARFARIN INR THERAPY RANGESSTANDARD DOSE: 2.0 - 3.0 Includes: PROPHYLAXIS forvenous thrombosis, systemic embolization; TREATMENT for venous thrombosis and/or pulmonary embolus.HIGH RISK: Target INR is 2.5-3.5 for patients with mechanical heart valves.[id number] 04:50:00 Test Item Value Reference Range Comments FIBRINOGEN LEVEL (BEAKER) (test samh=402) 494 mg/dl 225-434 PLATELET [id number] 04:38:00 Test Item Value Reference Range Comments PLATELET COUNT (BEAKER) (test hflc=872) 112 K/CU MM 150-450 CBC (HEMOGRAM ONLY)2018-12-18 04:38:00 Test Item Value Reference Range Comments WHITE BLOOD CELL COUNT (BEAKER) (test wopb=541) 8.8 K/ L 3.5-10.5 RED BLOOD CELL COUNT (BEAKER) (test ismr=681) 2.82 M/ L 4.63-6.08 HEMOGLOBIN (BEAKER) (test qtdu=333) 9.2 GM/DL 13.7-17.5 HEMATOCRIT (BEAKER) (test gony=655) 29.0 % 40.1-51.0 MEAN CORPUSCULAR VOLUME (BEAKER) (test pqso=132) 102.8 fL 79.0-92.2 MEAN CORPUSCULAR HEMOGLOBIN (BEAKER) (test 32.6 pg 25.7-32.2 eevo=340) MEAN CORPUSCULAR HEMOGLOBIN CONC (BEAKER) (test 31.7 GM/DL 32.3-36.5 iuhk=138) RED CELL DISTRIBUTION WIDTH (BEAKER) (test 16.2 % 11.6-14.4 tkuj=086) PLATELET COUNT (BEAKER) (test mxis=412) 112 K/CU MM 150-450 MEAN PLATELET VOLUME (BEAKER) (test jebe=092) 9.4 fL 9.4-12.4 NUCLEATED RED BLOOD CELLS (BEAKER) (test 0 /100 WBC 0-0 axfh=961) [id number] 18:48:00 Test Item Value Reference Range Comments MAGNESIUM (BEAKER) (test umhd=074) 2.4 mg/dL 1.6-2.6 POCT-GLUCOSE [id number] 18:42:00 Test Item Value Reference Range Comments POC-GLUCOSE METER (BEAKER) 121 mg/dL 70-110 TESTED AT [facility] [address] (test fsmd=5055) [facility] [address] HEMOGLOBIN AND [id number] 18:37:00 Test Item Value Reference Range Comments HEMOGLOBIN (BEAKER) (test fepj=329) 10.0 GM/DL 13.7-17.5 HEMATOCRIT (BEAKER) (test agdn=090) 31.3 % 40.1-51.0 RAD, CHEST, 1 VIEW, NON [id number] 13:28:00Reason for exam:->post opShould this be performed at the bedside?->YesFINAL REPORT AP chest HISTORY: Postoperative. COMPARISON: 12/07/2018. IMPRESSION: Right IJ catheter present with tip at lower SVC. Two right-sided thoracostomy tubes. No definite pneumothorax, although a small basilar pneumothorax component cannot be entirely excluded. There is subcutaneous emphysema in the right chest wall. Cardiomegaly unchanged. Diffuse interstitial edema. Small effusions. Signed: Mandy Chairez MDReport Verified Date/Time: 12/17/2018 13: 28:23 Reading Location: [facility] Mammo Reading Room BASI METABOLIC [id number] 13:03:00 Test Item Value Reference Range Comments SODIUM (BEAKER) (test 138 meq/L 136-145 rvbk=165) POTASSIUM (BEAKER) (test 4.2 meq/L 3.5-5.1 aiog=668) CHLORIDE (BEAKER) (test 103 meq/L 98-107 ddwf=109) CO2 (BEAKER) (test 27 meq/L 22-29 xwia=257) BLOOD UREA NITROGEN 28 mg/dL 7-21 (BEAKER) (test pyaq=973) CREATININE (BEAKER) (test 4.75 mg/dL 0.57-1.25 zqvw=570) GLUCOSE RANDOM (BEAKER) 118 mg/dL 70-105 (test zinx=902) CALCIUM (BEAKER) (test 8.3 mg/dL 8.4-10.2 lvre=117) EGFR (BEAKER) (test 15 mL/min/1.73 sq m ESTIMATED GFR IS NOT ylao=0781) ACCURATE CREATININE CLEARANCE IN PREDICTING GLOMERULAR FILTRATION RATE. ESTIMATED GFR IS NOT APPLICABLE FOR DIALYSIS PATIENTS. [id number] 12:53:00 Test Item Value Reference Range Comments PHOSPHORUS (BEAKER) (test cuiv=529) 4.3 mg/dL 2.3-4.7 [id number] 12:53:00 Test Item Value Reference Range Comments MAGNESIUM (BEAKER) (test yksn=923) 1.5 mg/dL 1.6-2.6 LACTIC ACID, [id number] 12:50:00 Test Item Value Reference Range Comments LACTATE BLOOD ARTERIAL (2) (BEAKER) (test 0.9 mmol/L 0.5-2.2 coci=2500) CBC W/PLT COUNT & AUTO [id number] 12:47:00 Test Item Value Reference Range Comments WHITE BLOOD CELL COUNT (BEAKER) (test szzs=316) 5.0 K/ L 3.5-10.5 RED BLOOD CELL COUNT (BEAKER) (test qsey=437) 2.22 M/ L 4.63-6.08 HEMOGLOBIN (BEAKER) (test qsxn=955) 7.5 GM/DL 13.7-17.5 HEMATOCRIT (BEAKER) (test aqrb=836) 23.4 % 40.1-51.0 MEAN CORPUSCULAR VOLUME (BEAKER) (test dhtl=575) 105.4 fL 79.0-92.2 MEAN CORPUSCULAR HEMOGLOBIN (BEAKER) (test 33.8 pg 25.7-32.2 xtdl=837) MEAN CORPUSCULAR HEMOGLOBIN CONC (BEAKER) (test 32.1 GM/DL 32.3-36.5 setx=452) RED CELL DISTRIBUTION WIDTH (BEAKER) (test 14.5 % 11.6-14.4 uwjd=631) PLATELET COUNT (BEAKER) (test vola=094) 127 K/CU MM 150-450 MEAN PLATELET VOLUME (BEAKER) (test ihqf=731) 9.8 fL 9.4-12.4 NUCLEATED RED BLOOD CELLS (BEAKER) (test 0 /100 WBC 0-0 lwdj=281) NEUTROPHILS RELATIVE PERCENT (BEAKER) (test 73 % tmal=522) LYMPHOCYTES RELATIVE PERCENT (BEAKER) (test 15 % awfy=324) MONOCYTES RELATIVE PERCENT (BEAKER) (test 10 % kvyq=525) EOSINOPHILS RELATIVE PERCENT (BEAKER) (test 1 % qhil=450) BASOPHILS RELATIVE PERCENT (BEAKER) (test 0 % xvld=605) NEUTROPHILS ABSOLUTE COUNT (BEAKER) (test 3.65 K/ L 1.78-5.38 kuqp=761) LYMPHOCYTES ABSOLUTE COUNT (BEAKER) (test 0.73 K/ L 1.32-3.57 muwu=230) MONOCYTES ABSOLUTE COUNT (BEAKER) (test 0.50 K/ L 0.30-0.82 qexb=389) EOSINOPHILS ABSOLUTE COUNT (BEAKER) (test 0.04 K/ L 0.04-0.54 bkex=325) BASOPHILS ABSOLUTE COUNT (BEAKER) (test 0.02 K/ L 0.01-0.08 jfgo=575) IMMATURE GRANULOCYTES-RELATIVE PERCENT (BEAKER) 1 % 0-1 (test kgbw=8902) CALCIUM, [id number] 12:26:00 Test Item Value Reference Range Comments CALCIUM IONIZED (BEAKER) (test tnpd=618) 1.07 mmol/L 1.12-1.27 PH, BLOOD (BEAKER) (test hgvy=1155) 7.38 BLOOD GAS, [id number] 12:26:00 Test Item Value Reference Range Comments PH ARTERIAL (BEAKER) (test mdwa=548) 7.39 7.35-7.45 PCO2 ARTERIAL (BEAKER) (test ifnl=003) 46 mmHg 35-45 PO2 ARTERIAL (BEAKER) (test fmpu=030) 289 mmHg 80-90 O2 SATURATION ARTERIAL (BEAKER) (test engg=869) 99.7 % 96.0-97.0 HCO3 ARTERIAL (BEAKER) (test ttij=019) 27 mmol/L 21-29 BASE EXCESS ARTERIAL (BEAKER) (test rtbh=150) 1.4 mmol/L -2.0-3.0 PATIENT TEMPERATURE (BEAKER) (test vyxq=3410) 36.8 C FIO2 (BEAKER) (test pxmv=6892) 40.0 % CALCIUM, [id number] 10:25:00 Test Item Value Reference Range Comments CALCIUM IONIZED (BEAKER) (test qccd=656) 1.09 mmol/L 1.12-1.27 PH, BLOOD (BEAKER) (test xour=8610) 7.45 BLOOD GAS, [id number] 10:22:00 Test Item Value Reference Range Comments PH ARTERIAL (BEAKER) (test yejv=557) 7.48 7.35-7.45 PCO2 ARTERIAL (BEAKER) (test khia=247) 34 mmHg 35-45 PO2 ARTERIAL (BEAKER) (test jtaj=608) 391 mmHg 80-90 O2 SATURATION ARTERIAL (BEAKER) (test yxuw=738) 99.8 % 96.0-97.0 HCO3 ARTERIAL (BEAKER) (test rmtf=609) 26 mmol/L 21-29 BASE EXCESS ARTERIAL (BEAKER) (test xbgc=108) 1.6 mmol/L -2.0-3.0 PATIENT TEMPERATURE (BEAKER) (test bbdb=7858) 34.9 C FIO2 (BEAKER) (test sfws=8143) 96.0 % SODIUM NA-STAT [id number] 10:22:00 Test Item Value Reference Range Comments SODIUM (BEAKER) (test izgd=463) 133 meq/L 135-148 GLUCOSE-STAT [id number] 10:22:00 Test Item Value Reference Range Comments GLUCOSE RANDOM (BEAKER) (test ybro=294) 116 mg/dL 70-110 HGB/HCT (H&H) - STAT [id number] 10:22:00 Test Item Value Reference Range Comments HEMOGLOBIN (BEAKER) (test thsv=623) 8.9 g/dL 13.0-16.8 HEMATOCRIT (BEAKER) (test mbma=438) 26.0 % 40.0-50.0 POTASSIUM-STAT [id number] 10:20:00 Test Item Value Reference Range Comments POTASSIUM (BEAKER) (test zzcc=533) 4.0 meq/L 3.6-5.5 HEMOGLOBIN [id number] 09:33:00 Test Item Value Reference Range Comments HEMOGLOBIN A1C (BEAKER) (test pflr=994) 5.9 % 4.3-6.1 BLOOD GAS, [id number] 09:27:00 Test Item Value Reference Range Comments PH ARTERIAL (BEAKER) (test riys=700) 7.44 7.35-7.45 PCO2 ARTERIAL (BEAKER) (test fxxb=845) 42 mmHg 35-45 PO2 ARTERIAL (BEAKER) (test zmhi=511) 262 mmHg 80-90 O2 SATURATION ARTERIAL (BEAKER) (test fhhz=209) 99.6 % 96.0-97.0 HCO3 ARTERIAL (BEAKER) (test fdum=898) 28 mmol/L 21-29 BASE EXCESS ARTERIAL (BEAKER) (test xcxw=210) 3.0 mmol/L -2.0-3.0 PATIENT TEMPERATURE (BEAKER) (test lhtc=1369) 37.0 C FIO2 (BEAKER) (test lmef=2105) 100.0 % SODIUM NA-STAT [id number] 09:27:00 Test Item Value Reference Range Comments SODIUM (BEAKER) (test bhwt=810) 133 meq/L 135-148 HGB/HCT (H&H) - STAT [id number] 09:27:00 Test Item Value Reference Range Comments HEMOGLOBIN (BEAKER) (test cnwp=446) 9.4 g/dL 13.0-16.8 HEMATOCRIT (BEAKER) (test enir=020) 28.0 % 40.0-50.0 GLUCOSE-STAT [id number] 09:26:00 Test Item Value Reference Range Comments GLUCOSE RANDOM (BEAKER) (test yorm=246) 97 mg/dL 70-110 POTASSIUM-STAT [id number] 09:26:00 Test Item Value Reference Range Comments POTASSIUM (BEAKER) (test vlqw=720) 3.9 meq/L 3.6-5.5 CALCIUM, [id number] 09:26:00 Test Item Value Reference Range Comments CALCIUM IONIZED (BEAKER) (test jwqr=839) 1.17 mmol/L 1.12-1.27 PH, BLOOD (BEAKER) (test gavp=0749) 7.44 BLOOD GAS, [id number] 08:32:00 Test Item Value Reference Range Comments PH ARTERIAL (BEAKER) (test rxui=485) 7.52 7.35-7.45 PCO2 ARTERIAL (BEAKER) (test tcoc=971) 34 mmHg 35-45 PO2 ARTERIAL (BEAKER) (test dibv=043) 310 mmHg 80-90 O2 SATURATION ARTERIAL (BEAKER) (test qiaf=300) 99.8 % 96.0-97.0 HCO3 ARTERIAL (BEAKER) (test epwg=195) 28 mmol/L 21-29 BASE EXCESS ARTERIAL (BEAKER) (test cody=719) 4.2 mmol/L -2.0-3.0 PATIENT TEMPERATURE (BEAKER) (test beqr=6339) 35.4 C FIO2 (BEAKER) (test hzqf=2832) 96.0 % SODIUM NA-STAT [id number] 08:32:00 Test Item Value Reference Range Comments SODIUM (BEAKER) (test fuwa=472) 133 meq/L 135-148 GLUCOSE-STAT [id number] 08:32:00 Test Item Value Reference Range Comments GLUCOSE RANDOM (BEAKER) (test hxzr=928) 113 mg/dL 70-110 HGB/HCT (H&H) - STAT [id number] 08:32:00 Test Item Value Reference Range Comments HEMOGLOBIN (BEAKER) (test knud=709) 9.9 g/dL 13.0-16.8 HEMATOCRIT (BEAKER) (test aron=223) 29.0 % 40.0-50.0 CALCIUM, [id number] 08:31:00 Test Item Value Reference Range Comments CALCIUM IONIZED (BEAKER) (test viel=726) 1.05 mmol/L 1.12-1.27 PH, BLOOD (BEAKER) (test dplx=2019) 7.49 POTASSIUM-STAT [id number] 08:29:00 Test Item Value Reference Range Comments POTASSIUM (BEAKER) (test hcwf=025) 3.6 meq/L 3.6-5.5 POCT-GLUCOSE [id number] 06:20:00 Test Item Value Reference Range Comments POC-GLUCOSE METER (BEAKER) 99 mg/dL 70-110 TESTED AT [facility] [address] (test ovev=2313) [facility] [address] [id number] 05:05:00 Test Item Value Reference Range Comments PARTIAL THROMBOPLASTIN TIME (BEAKER) (test 75.6 seconds 22.5-36.0 iltw=554) LIPID [id number] 05:04:00 Test Item Value Reference Range Comments TRIGLYCERIDES (BEAKER) (test dogs=498) 53 mg/dL CHOLESTEROL (BEAKER) (test fwlq=553) 122 mg/dL HDL CHOLESTEROL (BEAKER) (test ggsd=171) 58 mg/dL LDL CHOLESTEROL CALCULATED (BEAKER) (test 53 mg/dL oysr=551) Triglyceride Reference Range: Low Risk <150 Borderline 150- 199 High Risk 200-499 Very High Risk >=500Cholesterol Reference Range: Low Risk <200 Borderline 200-239 High Risk > 240HDL Cholesterol Reference Range: Low Risk >=60 High Risk <40LDL Cholesterol Reference Range: Optimal <100 Near Optimal 100-129 Borderline 130-159 High 160-189 Very High >=190PROTHROMBIN [id number] 05:03:00 Test Item Value Reference Range Comments PROTIME (BEAKER) (test babe=304) 15.4 seconds 11.7-14.7 INR (BEAKER) (test oift=015) 1.2 <=5.9 RECOMMENDED COUMADIN/WARFARIN INR THERAPY RANGESSTANDARD DOSE: 2.0 - 3.0 Includes: PROPHYLAXIS forvenous thrombosis, systemic embolization; TREATMENT for venous thrombosis and/or pulmonary embolus.HIGH RISK: Target INR is 2.5-3.5 for patients with mechanical heart valves.POCT-GLUCOSE [id number] 21:17:00 Test Item Value Reference Range Comments POC-GLUCOSE METER (BEAKER) 223 mg/dL 70-110 TESTED AT [facility] [address] (test czka=9677) [facility] [address] COMPREHENSIVE METABOLIC [id number] 18:57:00 Test Item Value Reference Range Comments TOTAL PROTEIN (BEAKER) 7.8 gm/dL 6.0-8.3 (test ooqc=704) ALBUMIN (BEAKER) (test 3.1 g/dL 3.5-5.0 yhni=7212) ALKALINE PHOSPHATASE 80 U/L 40-150 (BEAKER) (test dxvm=360) BILIRUBIN TOTAL (BEAKER) 0.9 mg/dL 0.2-1.2 (test szgm=664) SODIUM (BEAKER) (test 136 meq/L 136-145 lwef=153) POTASSIUM (BEAKER) (test 3.9 meq/L 3.5-5.1 jvkz=638) CHLORIDE (BEAKER) (test 98 meq/L 98-107 neia=374) CO2 (BEAKER) (test 30 meq/L 22-29 cjlp=714) BLOOD UREA NITROGEN 19 mg/dL 7-21 (BEAKER) (test muoy=957) CREATININE (BEAKER) (test 3.98 mg/dL 0.57-1.25 ztkc=370) GLUCOSE RANDOM (BEAKER) 159 mg/dL 70-105 (test ugbf=222) CALCIUM (BEAKER) (test 8.9 mg/dL 8.4-10.2 hvlw=647) AST (SGOT) (BEAKER) (test 25 U/L 5-34 rwcv=013) ALT (SGPT) (BEAKER) (test 28 U/L 6-55 ppuq=180) EGFR (BEAKER) (test 19 mL/min/1.73 sq m ESTIMATED GFR IS NOT tvqq=8926) ACCURATE CREATININE CLEARANCE IN PREDICTING GLOMERULAR FILTRATION RATE. ESTIMATED GFR IS NOT APPLICABLE FOR DIALYSIS PATIENTS. [id number] 18:46:00 Test Item Value Reference Range Comments MAGNESIUM (BEAKER) (test fzbu=272) 1.8 mg/dL 1.6-2.6 CBC W/PLT COUNT & AUTO [id number] 18:10:00 Test Item Value Reference Range Comments WHITE BLOOD CELL COUNT (BEAKER) (test npvv=585) 6.2 K/ L 3.5-10.5 RED BLOOD CELL COUNT (BEAKER) (test tvie=779) 3.32 M/ L 4.63-6.08 HEMOGLOBIN (BEAKER) (test wlee=242) 11.0 GM/DL 13.7-17.5 HEMATOCRIT (BEAKER) (test lytb=669) 34.4 % 40.1-51.0 MEAN CORPUSCULAR VOLUME (BEAKER) (test yuxz=793) 103.6 fL 79.0-92.2 MEAN CORPUSCULAR HEMOGLOBIN (BEAKER) (test 33.1 pg 25.7-32.2 jdig=816) MEAN CORPUSCULAR HEMOGLOBIN CONC (BEAKER) (test 32.0 GM/DL 32.3-36.5 dtoe=965) RED CELL DISTRIBUTION WIDTH (BEAKER) (test 14.9 % 11.6-14.4 doqb=079) PLATELET COUNT (BEAKER) (test dzin=973) 77 K/CU MM 150-450 MEAN PLATELET VOLUME (BEAKER) (test rvxj=889) 10.2 fL 9.4-12.4 NUCLEATED RED BLOOD CELLS (BEAKER) (test 0 /100 WBC 0-0 knsa=978) NEUTROPHILS RELATIVE PERCENT (BEAKER) (test 71 % asen=274) LYMPHOCYTES RELATIVE PERCENT (BEAKER) (test 13 % kfjf=187) MONOCYTES RELATIVE PERCENT (BEAKER) (test 14 % hznw=501) EOSINOPHILS RELATIVE PERCENT (BEAKER) (test 1 % hqki=922) BASOPHILS RELATIVE PERCENT (BEAKER) (test 1 % coyl=564) NEUTROPHILS ABSOLUTE COUNT (BEAKER) (test 4.39 K/ L 1.78-5.38 invo=940) LYMPHOCYTES ABSOLUTE COUNT (BEAKER) (test 0.82 K/ L 1.32-3.57 xhkr=894) MONOCYTES ABSOLUTE COUNT (BEAKER) (test juoe=786) 0.84 K/ L 0.30-0.82 EOSINOPHILS ABSOLUTE COUNT (BEAKER) (test 0.05 K/ L 0.04-0.54 bjnf=285) BASOPHILS ABSOLUTE COUNT (BEAKER) (test zzqw=346) 0.03 K/ L 0.01-0.08 IMMATURE GRANULOCYTES-RELATIVE PERCENT (BEAKER) 1 % 0-1 (test ainr=7732) POCT-GLUCOSE [id number] 17:34:00 Test Item Value Reference Range Comments POC-GLUCOSE METER (BEAKER) 169 mg/dL 70-110 TESTED AT [facility] [address] (test tmom=1277) [place] [address] HEPARIN [id number] 13:40:00 Test Item Value Reference Range Comments HEPARIN ANTIBODY (BEAKER) (test xtoq=344) Negative Negative HEPARIN ANTIBODY OD (BEAKER) (test jwmf=0770) 0.105 <0.400 4T TOTAL SCORE (BEAKER) (test tvxu=2116) 4 Probability of HIT based on scoring system: 6-8=High probability; 4-5= intermediate probability; 0-3=low probabilityPOCT-GLUCOSE [id number] 12:51: 00 Test Item Value Reference Range Comments POC-GLUCOSE METER (BEAKER) 66 mg/dL 70-110 Notified LAURYN PÉREZ/TESTED AT [facility] (test gylx=2444) [address] [place] [id number] POCT-GLUCOSE [id number] 07:54:00 Test Item Value Reference Range Comments POC-GLUCOSE METER (BEAKER) 75 mg/dL 70-110 TESTED AT [address] (test boyd=8860) [facility] [address] [id number] 04:21:00 Test Item Value Reference Range Comments PROTIME (BEAKER) (test gomf=053) 15.4 seconds 11.7-14.7 INR (BEAKER) (test iimw=557) 1.2 <=5.9 PARTIAL THROMBOPLASTIN TIME (BEAKER) (test 74.0 seconds 22.5-36.0 pivv=147) RECOMMENDED COUMADIN/WARFARIN INR THERAPY RANGESSTANDARD DOSE: 2.0 - 3.0 Includes: PROPHYLAXIS forvenous thrombosis, systemic embolization; TREATMENT for venous thrombosis and/or pulmonary embolus.HIGH RISK: Target INR is 2.5-3.5 for patients with mechanical heart valves.[id number] 04:20:00 Test Item Value Reference Range Comments FIBRINOGEN LEVEL (BEAKER) (test pspb=505) 525 mg/dl 225-434 POCT-GLUCOSE [id number] 21:25:00 Test Item Value Reference Range Comments POC-GLUCOSE METER (BEAKER) 129 mg/dL 70-110 TESTED AT [address] (test zwht=6001) [facility] [address] [id number] 18:23:00 Test Item Value Reference Range Comments PARTIAL THROMBOPLASTIN TIME (BEAKER) (test 72.0 seconds 22.5-36.0 szpq=423) POCT-GLUCOSE [id number] 16:20:00 Test Item Value Reference Range Comments POC-GLUCOSE METER (BEAKER) 142 mg/dL 70-110 TESTED AT [address] (test rjru=0288) [facility] [address] POCT-GLUCOSE [id number] 13:05:00 Test Item Value Reference Range Comments POC-GLUCOSE METER (BEAKER) 86 mg/dL 70-110 TESTED AT [address] (test bfcp=2696) [facility] [address] [id number] 11:19:00 Test Item Value Reference Range Comments PARTIAL THROMBOPLASTIN TIME (BEAKER) (test 72.3 seconds 22.5-36.0 lory=928) POCT-GLUCOSE [id number] 07:56:00 Test Item Value Reference Range Comments POC-GLUCOSE METER (BEAKER) 87 mg/dL 70-110 TESTED AT [address] (test fgbl=8169) [facility] [address] [id number] 03:13:00 Test Item Value Reference Range Comments PARTIAL THROMBOPLASTIN TIME (BEAKER) (test 97.1 seconds 22.5-36.0 biex=605) PROTHROMBIN [id number] 03:11:00 Test Item Value Reference Range Comments PROTIME (BEAKER) (test tvql=322) 16.5 seconds 11.7-14.7 INR (BEAKER) (test ynwt=463) 1.3 <=5.9 RECOMMENDED COUMADIN/WARFARIN INR THERAPY RANGESSTANDARD DOSE: 2.0 - 3.0 Includes: PROPHYLAXIS forvenous thrombosis, systemic embolization; TREATMENT for venous thrombosis and/or pulmonary embolus.HIGH RISK: Target INR is 2.5-3.5 for patients with mechanical heart valves.CBC (HEMOGRAM ONLY)2018-12-15 02:42:00 Test Item Value Reference Range Comments WHITE BLOOD CELL COUNT (BEAKER) (test wecr=172) 6.9 K/ L 3.5-10.5 RED BLOOD CELL COUNT (BEAKER) (test fgat=753) 3.13 M/ L 4.63-6.08 HEMOGLOBIN (BEAKER) (test imkz=808) 10.6 GM/DL 13.7-17.5 HEMATOCRIT (BEAKER) (test ndwj=557) 32.4 % 40.1-51.0 MEAN CORPUSCULAR VOLUME (BEAKER) (test ejmb=727) 103.5 fL 79.0-92.2 MEAN CORPUSCULAR HEMOGLOBIN (BEAKER) (test 33.9 pg 25.7-32.2 fdbw=984) MEAN CORPUSCULAR HEMOGLOBIN CONC (BEAKER) (test 32.7 GM/DL 32.3-36.5 kwei=158) RED CELL DISTRIBUTION WIDTH (BEAKER) (test 14.9 % 11.6-14.4 eyjt=992) PLATELET COUNT (BEAKER) (test hgkn=089) 77 K/CU MM 150-450 MEAN PLATELET VOLUME (BEAKER) (test zolw=309) 8.9 fL 9.4-12.4 NUCLEATED RED BLOOD CELLS (BEAKER) (test 0 /100 WBC 0-0 yngc=861) POCT-GLUCOSE [id number] 21:26:00 Test Item Value Reference Range Comments POC-GLUCOSE METER (BEAKER) 121 mg/dL 70-110 TESTED AT [address] (test jjqy=6955) [place] [address] [id number] 19:05:00 Test Item Value Reference Range Comments PARTIAL THROMBOPLASTIN TIME (BEAKER) (test 64.0 seconds 22.5-36.0 ijhd=205) POCT-GLUCOSE [id number] 17:24:00 Test Item Value Reference Range Comments POC-GLUCOSE METER (BEAKER) 131 mg/dL 70-110 TESTED AT [address] (test boej=3900) [place] [address] [id number] 13:32:00 Test Item Value Reference Range Comments PARTIAL THROMBOPLASTIN TIME (BEAKER) (test 81.4 seconds 22.5-36.0 kpvw=675) POCT-GLUCOSE [id number] 12:32:00 Test Item Value Reference Range Comments POC-GLUCOSE METER (BEAKER) 102 mg/dL 70-110 TESTED AT [address] (test qnnv=8838) [place] [id number] POCT-GLUCOSE [id number] 07:07:00 Test Item Value Reference Range Comments POC-GLUCOSE METER (BEAKER) 113 mg/dL 70-110 TESTED AT [address] (test rgtl=7409) [place] [address] [id number] 05:47:00 Test Item Value Reference Range Comments PARTIAL THROMBOPLASTIN TIME (BEAKER) (test 91.8 seconds 22.5-36.0 iipp=256) POCT-GLUCOSE [id number] 21:27:00 Test Item Value Reference Range Comments POC-GLUCOSE METER (BEAKER) 90 mg/dL 70-110 TESTED AT [address] (test hyxg=1231) [facility] [address] POCT-GLUCOSE [id number] 17:46:00 Test Item Value Reference Range Comments POC-GLUCOSE METER (BEAKER) 175 mg/dL 70-110 TESTED AT [address] (test czaa=2962) [place] [id number] POCT-GLUCOSE [id number] 17:30:00 Test Item Value Reference Range Comments POC-GLUCOSE METER (BEAKER) 84 mg/dL 70-110 TESTED AT [address] (test jhka=5825) [place] [address] [id number] 13:20:00 Test Item Value Reference Range Comments PARTIAL THROMBOPLASTIN TIME (BEAKER) (test 68.4 seconds 22.5-36.0 jzpr=670) BASIC METABOLIC [id number] 10:36:00 Test Item Value Reference Range Comments SODIUM (BEAKER) (test 133 meq/L 136-145 gtxk=464) POTASSIUM (BEAKER) (test 4.4 meq/L 3.5-5.1 klyd=258) CHLORIDE (BEAKER) (test 98 meq/L 98-107 vuwm=182) CO2 (BEAKER) (test 25 meq/L 22-29 axtx=993) BLOOD UREA NITROGEN 38 mg/dL 7-21 (BEAKER) (test ojfu=091) CREATININE (BEAKER) (test 6.36 mg/dL 0.57-1.25 vcwu=571) GLUCOSE RANDOM (BEAKER) 94 mg/dL 70-105 (test ryht=173) CALCIUM (BEAKER) (test 8.8 mg/dL 8.4-10.2 pgnl=740) EGFR (BEAKER) (test 11 mL/min/1.73 sq m ESTIMATED GFR IS NOT jdfx=6638) ACCURATE CREATININE CLEARANCE IN PREDICTING GLOMERULAR FILTRATION RATE. ESTIMATED GFR IS NOT APPLICABLE FOR DIALYSIS PATIENTS. POCT-GLUCOSE [id number] 07:43:00 Test Item Value Reference Range Comments POC-GLUCOSE METER (BEAKER) 84 mg/dL 70-110 TESTED AT [address] (test gsvb=1323) [place] [id number] 06:52:00 Test Item Value Reference Range Comments PARTIAL THROMBOPLASTIN TIME (BEAKER) (test 76.5 seconds 22.5-36.0 qfem=077) PROTHROMBIN [id number] 06:51:00 Test Item Value Reference Range Comments PROTIME (BEAKER) (test bbxc=894) 16.5 seconds 11.7-14.7 INR (BEAKER) (test uxji=252) 1.3 <=5.9 RECOMMENDED COUMADIN/WARFARIN INR THERAPY RANGESSTANDARD DOSE: 2.0 - 3.0 Includes: PROPHYLAXIS forvenous thrombosis, systemic embolization; TREATMENT for venous thrombosis and/or pulmonary embolus.HIGH RISK: Target INR is 2.5-3.5 for patients with mechanical heart valves.CBC W/PLT COUNT & AUTO [id number] 06:50:00 Test Item Value Reference Range Comments WHITE BLOOD CELL COUNT (BEAKER) (test akme=527) 8.4 K/ L 3.5-10.5 RED BLOOD CELL COUNT (BEAKER) (test geel=185) 3.28 M/ L 4.63-6.08 HEMOGLOBIN (BEAKER) (test lwwz=368) 10.9 GM/DL 13.7-17.5 HEMATOCRIT (BEAKER) (test dmaz=217) 34.0 % 40.1-51.0 MEAN CORPUSCULAR VOLUME (BEAKER) (test aohw=649) 103.7 fL 79.0-92.2 MEAN CORPUSCULAR HEMOGLOBIN (BEAKER) (test 33.2 pg 25.7-32.2 yjhh=678) MEAN CORPUSCULAR HEMOGLOBIN CONC (BEAKER) (test 32.1 GM/DL 32.3-36.5 zdun=232) RED CELL DISTRIBUTION WIDTH (BEAKER) (test 15.5 % 11.6-14.4 ofia=634) PLATELET COUNT (BEAKER) (test gfxl=686) 83 K/CU MM 150-450 MEAN PLATELET VOLUME (BEAKER) (test mzjd=243) 9.4 fL 9.4-12.4 NUCLEATED RED BLOOD CELLS (BEAKER) (test 0 /100 WBC 0-0 mbgm=478) NEUTROPHILS RELATIVE PERCENT (BEAKER) (test 72 % eria=032) LYMPHOCYTES RELATIVE PERCENT (BEAKER) (test 16 % npwo=970) MONOCYTES RELATIVE PERCENT (BEAKER) (test 11 % vhgc=712) EOSINOPHILS RELATIVE PERCENT (BEAKER) (test 1 % ugte=988) BASOPHILS RELATIVE PERCENT (BEAKER) (test 1 % obch=619) NEUTROPHILS ABSOLUTE COUNT (BEAKER) (test 6.00 K/ L 1.78-5.38 vses=645) LYMPHOCYTES ABSOLUTE COUNT (BEAKER) (test 1.34 K/ L 1.32-3.57 palj=223) MONOCYTES ABSOLUTE COUNT (BEAKER) (test qrke=610) 0.88 K/ L 0.30-0.82 EOSINOPHILS ABSOLUTE COUNT (BEAKER) (test 0.05 K/ L 0.04-0.54 nvds=443) BASOPHILS ABSOLUTE COUNT (BEAKER) (test cvda=699) 0.04 K/ L 0.01-0.08 IMMATURE GRANULOCYTES-RELATIVE PERCENT (BEAKER) 1 % 0-1 (test oroz=1107) [id number] 00:11:00 Test Item Value Reference Range Comments PARTIAL THROMBOPLASTIN TIME (BEAKER) (test 59.7 seconds 22.5-36.0 obva=342) POCT-GLUCOSE [id number] 21:33:00 Test Item Value Reference Range Comments POC-GLUCOSE METER (BEAKER) 113 mg/dL 70-110 TESTED AT [address] (test btbn=2292) [place] [address] POCT-GLUCOSE [id number] 18:08:00 Test Item Value Reference Range Comments POC-GLUCOSE METER (BEAKER) 128 mg/dL 70-110 TESTED AT [address] (test zkbm=0842) [place] [address] [id number] 16:51:00 Test Item Value Reference Range Comments PARTIAL THROMBOPLASTIN TIME (BEAKER) (test 71.6 seconds 22.5-36.0 cnzw=615) POCT-GLUCOSE [id number] 12:39:00 Test Item Value Reference Range Comments POC-GLUCOSE METER (BEAKER) 124 mg/dL 70-110 TESTED AT [address] (test cxyp=1490) [place] [address] [id number] 09:07:00 Test Item Value Reference Range Comments PARTIAL THROMBOPLASTIN TIME (BEAKER) (test 96.6 seconds 22.5-36.0 yljf=204) POCT-GLUCOSE [id number] 07:48:00 Test Item Value Reference Range Comments POC-GLUCOSE METER (BEAKER) 105 mg/dL 70-110 TESTED AT [facility] [address] [facility] (test ibdq=1206) [facility] [address] BASIC METABOLIC [id number] 01:54:00 Test Item Value Reference Range Comments SODIUM (BEAKER) (test 138 meq/L 136-145 fdiz=324) POTASSIUM (BEAKER) (test 3.9 meq/L 3.5-5.1 duvd=587) CHLORIDE (BEAKER) (test 100 meq/L 98-107 hwfj=615) CO2 (BEAKER) (test 30 meq/L 22-29 hyfj=637) BLOOD UREA NITROGEN 22 mg/dL 7-21 (BEAKER) (test nblz=252) CREATININE (BEAKER) (test 4.23 mg/dL 0.57-1.25 pxcw=150) GLUCOSE RANDOM (BEAKER) 132 mg/dL 70-105 (test cbqb=881) CALCIUM (BEAKER) (test 8.6 mg/dL 8.4-10.2 yuan=056) EGFR (BEAKER) (test 17 mL/min/1.73 sq m ESTIMATED GFR IS NOT vkld=2723) ACCURATE CREATININE CLEARANCE IN PREDICTING GLOMERULAR FILTRATION RATE. ESTIMATED GFR IS NOT APPLICABLE FOR DIALYSIS PATIENTS. [id number] 01:37:00 Test Item Value Reference Range Comments PARTIAL THROMBOPLASTIN TIME (BEAKER) (test 53.4 seconds 22.5-36.0 wndd=826) PROTHROMBIN [id number] 01:36:00 Test Item Value Reference Range Comments PROTIME (BEAKER) (test ebca=433) 18.1 seconds 11.7-14.7 INR (BEAKER) (test eeyh=098) 1.5 <=5.9 RECOMMENDED COUMADIN/WARFARIN INR THERAPY RANGESSTANDARD DOSE: 2.0 - 3.0 Includes: PROPHYLAXIS forvenous thrombosis, systemic embolization; TREATMENT for venous thrombosis and/or pulmonary embolus.HIGH RISK: Target INR is 2.5-3.5 for patients with mechanical heart valves.CBC W/PLT COUNT & AUTO [id number] 01:22:00 Test Item Value Reference Range Comments WHITE BLOOD CELL COUNT (BEAKER) (test crwb=360) 9.0 K/ L 3.5-10.5 RED BLOOD CELL COUNT (BEAKER) (test bsds=750) 3.25 M/ L 4.63-6.08 HEMOGLOBIN (BEAKER) (test tuuo=268) 10.8 GM/DL 13.7-17.5 HEMATOCRIT (BEAKER) (test jlzv=220) 33.7 % 40.1-51.0 MEAN CORPUSCULAR VOLUME (BEAKER) (test bdzo=851) 103.7 fL 79.0-92.2 MEAN CORPUSCULAR HEMOGLOBIN (BEAKER) (test 33.2 pg 25.7-32.2 uswl=048) MEAN CORPUSCULAR HEMOGLOBIN CONC (BEAKER) (test 32.0 GM/DL 32.3-36.5 dvml=417) RED CELL DISTRIBUTION WIDTH (BEAKER) (test 15.9 % 11.6-14.4 iedg=446) PLATELET COUNT (BEAKER) (test ovkw=779) 89 K/CU MM 150-450 MEAN PLATELET VOLUME (BEAKER) (test wzru=556) 9.5 fL 9.4-12.4 NUCLEATED RED BLOOD CELLS (BEAKER) (test 0 /100 WBC 0-0 kccr=216) NEUTROPHILS RELATIVE PERCENT (BEAKER) (test 70 % ehhh=456) LYMPHOCYTES RELATIVE PERCENT (BEAKER) (test 15 % hcdi=719) MONOCYTES RELATIVE PERCENT (BEAKER) (test 13 % qwaz=153) EOSINOPHILS RELATIVE PERCENT (BEAKER) (test 0 % lywr=254) BASOPHILS RELATIVE PERCENT (BEAKER) (test 0 % zusj=385) NEUTROPHILS ABSOLUTE COUNT (BEAKER) (test 6.28 K/ L 1.78-5.38 xcbn=336) LYMPHOCYTES ABSOLUTE COUNT (BEAKER) (test 1.37 K/ L 1.32-3.57 lmze=827) MONOCYTES ABSOLUTE COUNT (BEAKER) (test ikju=318) 1.15 K/ L 0.30-0.82 EOSINOPHILS ABSOLUTE COUNT (BEAKER) (test 0.04 K/ L 0.04-0.54 szfj=820) BASOPHILS ABSOLUTE COUNT (BEAKER) (test ekre=940) 0.04 K/ L 0.01-0.08 IMMATURE GRANULOCYTES-RELATIVE PERCENT (BEAKER) 1 % 0-1 (test snos=2321) POCT-GLUCOSE [id number] 21:57:00 Test Item Value Reference Range Comments POC-GLUCOSE METER (BEAKER) 165 mg/dL 70-110 TESTED AT [address] (test gnsm=5397) [place] [address] [id number] 18:46:00 Test Item Value Reference Range Comments PARTIAL THROMBOPLASTIN TIME (BEAKER) (test 39.0 seconds 22.5-36.0 omit=854) POCT-GLUCOSE [id number] 17:51:00 Test Item Value Reference Range Comments POC-GLUCOSE METER (BEAKER) 157 mg/dL 70-110 TESTED AT [address] (test wyoz=8019) [place] [address] POCT-GLUCOSE [id number] 17:09:00 Test Item Value Reference Range Comments POC-GLUCOSE METER (BEAKER) 162 mg/dL 70-110 TESTED AT [address] (test dwhm=3667) [place] [address] [id number] 16:07:00 Test Item Value Reference Range Comments PARTIAL THROMBOPLASTIN TIME (BEAKER) (test 117.0 seconds 22.5-36.0 sohd=044) POCT-GLUCOSE [id number] 13:28:00 Test Item Value Reference Range Comments POC-GLUCOSE METER (BEAKER) 88 mg/dL 70-110 TESTED AT [address] (test fgct=8818) [place] [address] [id number] 09:17:00 Test Item Value Reference Range Comments PARTIAL THROMBOPLASTIN TIME (BEAKER) (test 71.7 seconds 22.5-36.0 etbd=410) POCT-GLUCOSE [id number] 08:07:00 Test Item Value Reference Range Comments POC-GLUCOSE METER (BEAKER) 137 mg/dL 70-110 TESTED AT [address] (test qgxq=7208) [place] [address] [id number] 02:27:00 Test Item Value Reference Range Comments PARTIAL THROMBOPLASTIN TIME (BEAKER) (test 62.4 seconds 22.5-36.0 lopp=953) PROTHROMBIN [id number] 02:26:00 Test Item Value Reference Range Comments PROTIME (BEAKER) (test vsbi=395) 20.0 seconds 11.7-14.7 INR (BEAKER) (test usuu=112) 1.7 <=5.9 RECOMMENDED COUMADIN/WARFARIN INR THERAPY RANGESSTANDARD DOSE: 2.0 - 3.0 Includes: PROPHYLAXIS forvenous thrombosis, systemic embolization; TREATMENT for venous thrombosis and/or pulmonary embolus.HIGH RISK: Target INR is 2.5-3.5 for patients with mechanical heart valves.BASIC METABOLIC [id number] 02:02: 00 Test Item Value Reference Range Comments SODIUM (BEAKER) (test 139 meq/L 136-145 bfke=002) POTASSIUM (BEAKER) (test 4.1 meq/L 3.5-5.1 qsri=636) CHLORIDE (BEAKER) (test 100 meq/L 98-107 juub=552) CO2 (BEAKER) (test 25 meq/L 22-29 onuz=165) BLOOD UREA NITROGEN 48 mg/dL 7-21 (BEAKER) (test dsqw=061) CREATININE (BEAKER) (test 6.50 mg/dL 0.57-1.25 fvdx=385) GLUCOSE RANDOM (BEAKER) 127 mg/dL 70-105 (test fzou=126) CALCIUM (BEAKER) (test 8.7 mg/dL 8.4-10.2 vqpa=924) EGFR (BEAKER) (test 11 mL/min/1.73 sq m ESTIMATED GFR IS NOT ptdl=9399) ACCURATE CREATININE CLEARANCE IN PREDICTING GLOMERULAR FILTRATION RATE. ESTIMATED GFR IS NOT APPLICABLE FOR DIALYSIS PATIENTS. CBC W/PLT COUNT & AUTO [id number] 01:42:00 Test Item Value Reference Range Comments WHITE BLOOD CELL COUNT (BEAKER) (test tzcj=830) 9.1 K/ L 3.5-10.5 RED BLOOD CELL COUNT (BEAKER) (test mwts=806) 3.22 M/ L 4.63-6.08 HEMOGLOBIN (BEAKER) (test rfbf=373) 10.8 GM/DL 13.7-17.5 HEMATOCRIT (BEAKER) (test yarp=483) 33.5 % 40.1-51.0 MEAN CORPUSCULAR VOLUME (BEAKER) (test eogr=776) 104.0 fL 79.0-92.2 MEAN CORPUSCULAR HEMOGLOBIN (BEAKER) (test 33.5 pg 25.7-32.2 fttl=079) MEAN CORPUSCULAR HEMOGLOBIN CONC (BEAKER) (test 32.2 GM/DL 32.3-36.5 qlbe=867) RED CELL DISTRIBUTION WIDTH (BEAKER) (test 16.0 % 11.6-14.4 avpx=544) PLATELET COUNT (BEAKER) (test sjto=205) 94 K/CU MM 150-450 MEAN PLATELET VOLUME (BEAKER) (test itcm=801) 9.9 fL 9.4-12.4 NUCLEATED RED BLOOD CELLS (BEAKER) (test 0 /100 WBC 0-0 umec=387) NEUTROPHILS RELATIVE PERCENT (BEAKER) (test 73 % cqmo=305) LYMPHOCYTES RELATIVE PERCENT (BEAKER) (test 13 % khyq=951) MONOCYTES RELATIVE PERCENT (BEAKER) (test 11 % hgzb=141) EOSINOPHILS RELATIVE PERCENT (BEAKER) (test 0 % zwyb=549) BASOPHILS RELATIVE PERCENT (BEAKER) (test 0 % fapb=679) NEUTROPHILS ABSOLUTE COUNT (BEAKER) (test 6.63 K/ L 1.78-5.38 wklb=004) LYMPHOCYTES ABSOLUTE COUNT (BEAKER) (test 1.14 K/ L 1.32-3.57 dcqv=846) MONOCYTES ABSOLUTE COUNT (BEAKER) (test jykp=457) 1.03 K/ L 0.30-0.82 EOSINOPHILS ABSOLUTE COUNT (BEAKER) (test 0.04 K/ L 0.04-0.54 opnk=453) BASOPHILS ABSOLUTE COUNT (BEAKER) (test kegv=366) 0.03 K/ L 0.01-0.08 IMMATURE GRANULOCYTES-RELATIVE PERCENT (BEAKER) 2 % 0-1 (test hywt=7922) POCT-GLUCOSE [id number] 21:12:00 Test Item Value Reference Range Comments POC-GLUCOSE METER (BEAKER) 199 mg/dL 70-110 TESTED AT [address] (test hvil=4544) [facility] [address] POCT-GLUCOSE [id number] 17:39:00 Test Item Value Reference Range Comments POC-GLUCOSE METER (BEAKER) 145 mg/dL 70-110 TESTED AT [address] (test nbjm=6706) [facility] [address] [id number] 17:33:00 Test Item Value Reference Range Comments PARTIAL THROMBOPLASTIN TIME (BEAKER) (test 47.3 seconds 22.5-36.0 jyen=345) POCT-GLUCOSE [id number] 12:53:00 Test Item Value Reference Range Comments POC-GLUCOSE METER (BEAKER) 203 mg/dL 70-110 TESTED AT [facility] [address] [facility] (test lvnr=4686) [facility] [address] POCT-GLUCOSE [id number] 08:28:00 Test Item Value Reference Range Comments POC-GLUCOSE METER (BEAKER) 98 mg/dL 70-110 TESTED AT [place] [id number] [facility] (test diox=7321) [facility] [address] BASIC METABOLIC [id number] 05:52:00 Test Item Value Reference Range Comments SODIUM (BEAKER) (test 135 meq/L 136-145 vhva=373) POTASSIUM (BEAKER) (test 4.0 meq/L 3.5-5.1 xxqw=711) CHLORIDE (BEAKER) (test 97 meq/L 98-107 gwri=332) CO2 (BEAKER) (test 26 meq/L 22-29 utoz=226) BLOOD UREA NITROGEN 31 mg/dL 7-21 (BEAKER) (test toav=377) CREATININE (BEAKER) (test 4.88 mg/dL 0.57-1.25 hofl=990) GLUCOSE RANDOM (BEAKER) 135 mg/dL 70-105 (test tcda=802) CALCIUM (BEAKER) (test 8.9 mg/dL 8.4-10.2 cfyc=548) EGFR (BEAKER) (test 15 mL/min/1.73 sq m ESTIMATED GFR IS NOT lefo=2487) ACCURATE CREATININE CLEARANCE IN PREDICTING GLOMERULAR FILTRATION RATE. ESTIMATED GFR IS NOT APPLICABLE FOR DIALYSIS PATIENTS. PROTHROMBIN [id number] 05:51:00 Test Item Value Reference Range Comments PROTIME (BEAKER) (test roxi=017) 22.9 seconds 11.7-14.7 INR (BEAKER) (test jkia=578) 2.0 <=5.9 RECOMMENDED COUMADIN/WARFARIN INR THERAPY RANGESSTANDARD DOSE: 2.0 - 3.0 Includes: PROPHYLAXIS forvenous thrombosis, systemic embolization; TREATMENT for venous thrombosis and/or pulmonary embolus.HIGH RISK: Target INR is 2.5-3.5 for patients with mechanical heart valves.CBC W/PLT COUNT & AUTO [id number] 05:31:00 Test Item Value Reference Range Comments WHITE BLOOD CELL COUNT (BEAKER) (test tkln=876) 8.3 K/ L 3.5-10.5 RED BLOOD CELL COUNT (BEAKER) (test zobc=137) 3.29 M/ L 4.63-6.08 HEMOGLOBIN (BEAKER) (test oybz=957) 10.8 GM/DL 13.7-17.5 HEMATOCRIT (BEAKER) (test uwyz=050) 34.1 % 40.1-51.0 MEAN CORPUSCULAR VOLUME (BEAKER) (test cepm=939) 103.6 fL 79.0-92.2 MEAN CORPUSCULAR HEMOGLOBIN (BEAKER) (test 32.8 pg 25.7-32.2 fzwy=266) MEAN CORPUSCULAR HEMOGLOBIN CONC (BEAKER) (test 31.7 GM/DL 32.3-36.5 ffng=155) RED CELL DISTRIBUTION WIDTH (BEAKER) (test 16.4 % 11.6-14.4 xvdk=595) PLATELET COUNT (BEAKER) (test xiga=507) 105 K/CU MM 150-450 MEAN PLATELET VOLUME (BEAKER) (test iqrb=429) 9.7 fL 9.4-12.4 NUCLEATED RED BLOOD CELLS (BEAKER) (test 0 /100 WBC 0-0 mvud=003) NEUTROPHILS RELATIVE PERCENT (BEAKER) (test 76 % ocsi=619) LYMPHOCYTES RELATIVE PERCENT (BEAKER) (test 10 % xhar=123) MONOCYTES RELATIVE PERCENT (BEAKER) (test 13 % neph=041) EOSINOPHILS RELATIVE PERCENT (BEAKER) (test 0 % axgg=635) BASOPHILS RELATIVE PERCENT (BEAKER) (test 0 % uora=057) NEUTROPHILS ABSOLUTE COUNT (BEAKER) (test 6.32 K/ L 1.78-5.38 rdve=043) LYMPHOCYTES ABSOLUTE COUNT (BEAKER) (test 0.85 K/ L 1.32-3.57 smkg=509) MONOCYTES ABSOLUTE COUNT (BEAKER) (test 1.04 K/ L 0.30-0.82 azgb=215) EOSINOPHILS ABSOLUTE COUNT (BEAKER) (test 0.02 K/ L 0.04-0.54 vyec=687) BASOPHILS ABSOLUTE COUNT (BEAKER) (test 0.02 K/ L 0.01-0.08 zsat=200) IMMATURE GRANULOCYTES-RELATIVE PERCENT (BEAKER) 1 % 0-1 (test wwiz=8713) POCT-GLUCOSE [id number] 20:54:00 Test Item Value Reference Range Comments POC-GLUCOSE METER (BEAKER) 126 mg/dL 70-110 TESTED AT [address] (test bygy=9273) [place] [address] POCT-GLUCOSE [id number] 18:47:00 Test Item Value Reference Range Comments POC-GLUCOSE METER (BEAKER) 70 mg/dL 70-110 TESTED AT [address] (test tmuc=3138) [place] [address] POCT-GLUCOSE [id number] 13:25:00 Test Item Value Reference Range Comments POC-GLUCOSE METER (BEAKER) 120 mg/dL 70-110 TESTED AT [address] (test lony=7736) [place] [address] POCT-GLUCOSE [id number] 09:32:00 Test Item Value Reference Range Comments POC-GLUCOSE METER (BEAKER) 104 mg/dL 70-110 TESTED AT [address] (test cpbp=1817) [place] [address] BASIC METABOLIC [id number] 05:59:00 Test Item Value Reference Range Comments SODIUM (BEAKER) (test 132 meq/L 136-145 wxur=413) POTASSIUM (BEAKER) (test 4.4 meq/L 3.5-5.1 udop=053) CHLORIDE (BEAKER) (test 93 meq/L 98-107 zqtu=590) CO2 (BEAKER) (test 24 meq/L 22-29 iodr=486) BLOOD UREA NITROGEN 68 mg/dL 7-21 (BEAKER) (test bmkc=989) CREATININE (BEAKER) (test 7.47 mg/dL 0.57-1.25 cuwg=758) GLUCOSE RANDOM (BEAKER) 112 mg/dL 70-105 (test glrn=454) CALCIUM (BEAKER) (test 8.9 mg/dL 8.4-10.2 upcu=591) EGFR (BEAKER) (test 9 mL/min/1.73 sq m ESTIMATED GFR IS NOT uvtm=8203) ACCURATE CREATININE CLEARANCE IN PREDICTING GLOMERULAR FILTRATION RATE. ESTIMATED GFR IS NOT APPLICABLE FOR DIALYSIS PATIENTS. PROTHROMBIN [id number] 05:20:00 Test Item Value Reference Range Comments PROTIME (BEAKER) (test jlrj=761) 30.5 seconds 11.7-14.7 INR (BEAKER) (test xgll=384) 2.9 <=5.9 RECOMMENDED COUMADIN/WARFARIN INR THERAPY RANGESSTANDARD DOSE: 2.0 - 3.0 Includes: PROPHYLAXIS forvenous thrombosis, systemic embolization; TREATMENT for venous thrombosis and/or pulmonary embolus.HIGH RISK: Target INR is 2.5-3.5 for patients with mechanical heart valves.CBC W/PLT COUNT & AUTO [id number] 05:13:00 Test Item Value Reference Range Comments WHITE BLOOD CELL COUNT (BEAKER) (test hhvo=587) 8.1 K/ L 3.5-10.5 RED BLOOD CELL COUNT (BEAKER) (test hrge=976) 3.29 M/ L 4.63-6.08 HEMOGLOBIN (BEAKER) (test alvz=465) 10.9 GM/DL 13.7-17.5 HEMATOCRIT (BEAKER) (test qydz=026) 33.7 % 40.1-51.0 MEAN CORPUSCULAR VOLUME (BEAKER) (test zfef=072) 102.4 fL 79.0-92.2 MEAN CORPUSCULAR HEMOGLOBIN (BEAKER) (test 33.1 pg 25.7-32.2 bagm=285) MEAN CORPUSCULAR HEMOGLOBIN CONC (BEAKER) (test 32.3 GM/DL 32.3-36.5 wszg=924) RED CELL DISTRIBUTION WIDTH (BEAKER) (test 16.1 % 11.6-14.4 koqe=015) PLATELET COUNT (BEAKER) (test qppm=213) 115 K/CU MM 150-450 MEAN PLATELET VOLUME (BEAKER) (test vwpw=493) 9.3 fL 9.4-12.4 NUCLEATED RED BLOOD CELLS (BEAKER) (test 0 /100 WBC 0-0 egxc=980) NEUTROPHILS RELATIVE PERCENT (BEAKER) (test 77 % msab=900) LYMPHOCYTES RELATIVE PERCENT (BEAKER) (test 11 % qous=680) MONOCYTES RELATIVE PERCENT (BEAKER) (test 11 % rcdv=891) EOSINOPHILS RELATIVE PERCENT (BEAKER) (test 0 % tftz=369) BASOPHILS RELATIVE PERCENT (BEAKER) (test 0 % vbbk=044) NEUTROPHILS ABSOLUTE COUNT (BEAKER) (test 6.20 K/ L 1.78-5.38 buta=985) LYMPHOCYTES ABSOLUTE COUNT (BEAKER) (test 0.90 K/ L 1.32-3.57 mxri=515) MONOCYTES ABSOLUTE COUNT (BEAKER) (test 0.89 K/ L 0.30-0.82 nrsy=461) EOSINOPHILS ABSOLUTE COUNT (BEAKER) (test 0.02 K/ L 0.04-0.54 vodq=861) BASOPHILS ABSOLUTE COUNT (BEAKER) (test 0.02 K/ L 0.01-0.08 qpye=667) IMMATURE GRANULOCYTES-RELATIVE PERCENT (BEAKER) 1 % 0-1 (test vbrf=0456) POCT-GLUCOSE [id number] 21:14:00 Test Item Value Reference Range Comments POC-GLUCOSE METER (BEAKER) 200 mg/dL 70-110 TESTED AT [address] (test hpkn=6203) [place] [id number] POCT-GLUCOSE [id number] 17:34:00 Test Item Value Reference Range Comments POC-GLUCOSE METER (BEAKER) 143 mg/dL 70-110 TESTED AT [address] (test szxq=4447) [place] [id number] POCT-GLUCOSE [id number] 12:04:00 Test Item Value Reference Range Comments POC-GLUCOSE METER (BEAKER) 160 mg/dL 70-110 TESTED AT [address] (test tyat=3432) [place] [id number] POCT-GLUCOSE [id number] 08:08:00 Test Item Value Reference Range Comments POC-GLUCOSE METER (BEAKER) 154 mg/dL 70-110 TESTED AT [address] (test rizt=2877) [place] [id number] BASIC METABOLIC [id number] 06:33:00 Test Item Value Reference Range Comments SODIUM (BEAKER) (test 135 meq/L 136-145 euwq=092) POTASSIUM (BEAKER) (test 4.2 meq/L 3.5-5.1 uisw=644) CHLORIDE (BEAKER) (test 95 meq/L 98-107 vtzd=116) CO2 (BEAKER) (test 25 meq/L 22-29 axth=007) BLOOD UREA NITROGEN 55 mg/dL 7-21 (BEAKER) (test yzcs=816) CREATININE (BEAKER) (test 6.11 mg/dL 0.57-1.25 xufb=118) GLUCOSE RANDOM (BEAKER) 120 mg/dL 70-105 (test dkhf=922) CALCIUM (BEAKER) (test 9.2 mg/dL 8.4-10.2 fpet=518) EGFR (BEAKER) (test 11 mL/min/1.73 sq m ESTIMATED GFR IS NOT cdns=7622) ACCURATE CREATININE CLEARANCE IN PREDICTING GLOMERULAR FILTRATION RATE. ESTIMATED GFR IS NOT APPLICABLE FOR DIALYSIS PATIENTS. [id number] 06:01:00 Test Item Value Reference Range Comments PARTIAL THROMBOPLASTIN TIME (BEAKER) (test 117.2 seconds 22.5-36.0 onvg=631) PROTHROMBIN [id number] 05:56:00 Test Item Value Reference Range Comments PROTIME (BEAKER) (test mxma=910) 30.8 seconds 11.7-14.7 INR (BEAKER) (test raxt=309) 3.0 <=5.9 RECOMMENDED COUMADIN/WARFARIN INR THERAPY RANGESSTANDARD DOSE: 2.0 - 3.0 Includes: PROPHYLAXIS forvenous thrombosis, systemic embolization; TREATMENT for venous thrombosis and/or pulmonary embolus.HIGH RISK: Target INR is 2.5-3.5 for patients with mechanical heart valves.CBC W/PLT COUNT & AUTO [id number] 05:46:00 Test Item Value Reference Range Comments WHITE BLOOD CELL COUNT (BEAKER) (test lamj=734) 7.6 K/ L 3.5-10.5 RED BLOOD CELL COUNT (BEAKER) (test auuz=871) 3.30 M/ L 4.63-6.08 HEMOGLOBIN (BEAKER) (test qptw=055) 11.0 GM/DL 13.7-17.5 HEMATOCRIT (BEAKER) (test avjq=779) 34.1 % 40.1-51.0 MEAN CORPUSCULAR VOLUME (BEAKER) (test bwgc=123) 103.3 fL 79.0-92.2 MEAN CORPUSCULAR HEMOGLOBIN (BEAKER) (test 33.3 pg 25.7-32.2 ages=319) MEAN CORPUSCULAR HEMOGLOBIN CONC (BEAKER) (test 32.3 GM/DL 32.3-36.5 bnjn=890) RED CELL DISTRIBUTION WIDTH (BEAKER) (test 16.1 % 11.6-14.4 adnm=447) PLATELET COUNT (BEAKER) (test aymm=552) 119 K/CU MM 150-450 MEAN PLATELET VOLUME (BEAKER) (test hsid=113) 9.2 fL 9.4-12.4 NUCLEATED RED BLOOD CELLS (BEAKER) (test 0 /100 WBC 0-0 yxwh=753) NEUTROPHILS RELATIVE PERCENT (BEAKER) (test 73 % giou=380) LYMPHOCYTES RELATIVE PERCENT (BEAKER) (test 13 % tofk=711) MONOCYTES RELATIVE PERCENT (BEAKER) (test 13 % lygw=833) EOSINOPHILS RELATIVE PERCENT (BEAKER) (test 0 % drka=429) BASOPHILS RELATIVE PERCENT (BEAKER) (test 0 % xivm=124) NEUTROPHILS ABSOLUTE COUNT (BEAKER) (test 5.57 K/ L 1.78-5.38 nvyh=243) LYMPHOCYTES ABSOLUTE COUNT (BEAKER) (test 1.01 K/ L 1.32-3.57 srgr=286) MONOCYTES ABSOLUTE COUNT (BEAKER) (test 0.96 K/ L 0.30-0.82 ejcy=953) EOSINOPHILS ABSOLUTE COUNT (BEAKER) (test 0.01 K/ L 0.04-0.54 otuc=305) BASOPHILS ABSOLUTE COUNT (BEAKER) (test 0.01 K/ L 0.01-0.08 zgoh=495) IMMATURE GRANULOCYTES-RELATIVE PERCENT (BEAKER) 1 % 0-1 (test atuu=3520) POCT-GLUCOSE [id number] 21:37:00 Test Item Value Reference Range Comments POC-GLUCOSE METER (BEAKER) 121 mg/dL 70-110 TESTED AT [address] (test tdyu=2753) [facility] [address] POCT-GLUCOSE [id number] 19:01:00 Test Item Value Reference Range Comments POC-GLUCOSE METER (BEAKER) 191 mg/dL 70-110 TESTED AT [address] (test bpmi=3042) [facility] [address] [id number] 18:31:00 Test Item Value Reference Range Comments PARTIAL THROMBOPLASTIN TIME (BEAKER) (test 86.2 seconds 22.5-36.0 coqc=829) POCT-GLUCOSE [id number] 13:05:00 Test Item Value Reference Range Comments POC-GLUCOSE METER (BEAKER) 130 mg/dL 70-110 TESTED AT [address] (test jhmf=1199) [facility] [address] RAD, CHEST, 1 VIEW, NON [id number] 12:22:00Reason for exam:->pleural effusionsShould this be performed at the bedside?->YesFINAL REPORT RAD, CHEST, 1 VIEW, NON DEPT INDICATION: pleural effusions COMPARISON: December 04, 2018 FINDINGS: Portable frontal view of the chest. IMPRESSION: Worsening interstitial edema. Stable right effusion tracking into the minor fissure. Persistent enlargement of the cardiac silhouette with stable surgical changes. Sternotomy wires are intact. Signed: JR Platt Robert [facility] Verified Date/Time: 12/07/2018 12:22:50 Reading Location: [address] Neuro Reading Room [id number] 11:39:00 Test Item Value Reference Range Comments PARTIAL THROMBOPLASTIN TIME (BEAKER) (test 100.1 seconds 22.5-36.0 pjnj=156) BODY FLUID CULTURE + GRAM [id number] 10:13:00 Test Item Value Reference Range Comments CULTURE (BEAKER) (test uwlx=1945) No growth GRAM STAIN RESULT (BEAKER) (test <1+ White blood cells seen wwrl=2127) GRAM STAIN RESULT (BEAKER) (test No organisms seen asfg=54539) POCT-GLUCOSE [id number] 08:51:00 Test Item Value Reference Range Comments POC-GLUCOSE METER (BEAKER) 90 mg/dL 70-110 TESTED AT [address] (test pdjt=6977) [facility] [address] BASIC METABOLIC [id number] 07:31:00 Test Item Value Reference Range Comments SODIUM (BEAKER) (test 136 meq/L 136-145 kvfp=635) POTASSIUM (BEAKER) (test 3.8 meq/L 3.5-5.1 qbgb=670) CHLORIDE (BEAKER) (test 97 meq/L 98-107 vyvq=913) CO2 (BEAKER) (test 27 meq/L 22-29 jsta=039) BLOOD UREA NITROGEN 36 mg/dL 7-21 (BEAKER) (test jdln=160) CREATININE (BEAKER) (test 4.44 mg/dL 0.57-1.25 fnbq=537) GLUCOSE RANDOM (BEAKER) 76 mg/dL 70-105 (test ttuw=204) CALCIUM (BEAKER) (test 9.2 mg/dL 8.4-10.2 vjtj=591) EGFR (BEAKER) (test 16 mL/min/1.73 sq m ESTIMATED GFR IS NOT tzzu=0248) ACCURATE CREATININE CLEARANCE IN PREDICTING GLOMERULAR FILTRATION RATE. ESTIMATED GFR IS NOT APPLICABLE FOR DIALYSIS PATIENTS. [id number] 05:21:00 Test Item Value Reference Range Comments PARTIAL THROMBOPLASTIN TIME (BEAKER) (test 104.0 seconds 22.5-36.0 xkmp=611) PROTHROMBIN TIME/[id number] 04:50:00 Test Item Value Reference Range Comments PROTIME (BEAKER) (test sovx=424) 23.7 seconds 11.7-14.7 INR (BEAKER) (test rasw=753) 2.1 <=5.9 RECOMMENDED COUMADIN/WARFARIN INR THERAPY RANGESSTANDARD DOSE: 2.0 - 3.0 Includes: PROPHYLAXIS forvenous thrombosis, systemic embolization; TREATMENT for venous thrombosis and/or pulmonary embolus.HIGH RISK: Target INR is 2.5-3.5 for patients with mechanical heart valves.CBC W/PLT COUNT & AUTO [id number] 04:37:00 Test Item Value Reference Range Comments WHITE BLOOD CELL COUNT (BEAKER) (test ujjs=540) 9.1 K/ L 3.5-10.5 RED BLOOD CELL COUNT (BEAKER) (test dkhn=852) 3.27 M/ L 4.63-6.08 HEMOGLOBIN (BEAKER) (test uxgm=821) 10.9 GM/DL 13.7-17.5 HEMATOCRIT (BEAKER) (test wxdw=453) 33.0 % 40.1-51.0 MEAN CORPUSCULAR VOLUME (BEAKER) (test rsvj=793) 100.9 fL 79.0-92.2 MEAN CORPUSCULAR HEMOGLOBIN (BEAKER) (test 33.3 pg 25.7-32.2 zimn=342) MEAN CORPUSCULAR HEMOGLOBIN CONC (BEAKER) (test 33.0 GM/DL 32.3-36.5 sucs=340) RED CELL DISTRIBUTION WIDTH (BEAKER) (test 15.6 % 11.6-14.4 hklc=990) PLATELET COUNT (BEAKER) (test axrx=688) 140 K/CU MM 150-450 MEAN PLATELET VOLUME (BEAKER) (test minl=355) 9.3 fL 9.4-12.4 NUCLEATED RED BLOOD CELLS (BEAKER) (test 0 /100 WBC 0-0 ytea=003) NEUTROPHILS RELATIVE PERCENT (BEAKER) (test 80 % uxzt=433) LYMPHOCYTES RELATIVE PERCENT (BEAKER) (test 9 % jwqz=042) MONOCYTES RELATIVE PERCENT (BEAKER) (test 10 % jvrc=318) EOSINOPHILS RELATIVE PERCENT (BEAKER) (test 0 % ywmm=319) BASOPHILS RELATIVE PERCENT (BEAKER) (test 0 % jift=545) NEUTROPHILS ABSOLUTE COUNT (BEAKER) (test 7.26 K/ L 1.78-5.38 vodx=705) LYMPHOCYTES ABSOLUTE COUNT (BEAKER) (test 0.82 K/ L 1.32-3.57 beln=748) MONOCYTES ABSOLUTE COUNT (BEAKER) (test 0.94 K/ L 0.30-0.82 txpa=921) EOSINOPHILS ABSOLUTE COUNT (BEAKER) (test 0.01 K/ L 0.04-0.54 tqdz=349) BASOPHILS ABSOLUTE COUNT (BEAKER) (test 0.01 K/ L 0.01-0.08 tuzt=820) IMMATURE GRANULOCYTES-RELATIVE PERCENT (BEAKER) 1 % 0-1 (test ejxb=2227) [id number] 20:33:00 Test Item Value Reference Range Comments PARTIAL THROMBOPLASTIN TIME (BEAKER) (test 87.6 seconds 22.5-36.0 vevp=021) POCT-GLUCOSE [id number] 19:30:00 Test Item Value Reference Range Comments POC-GLUCOSE METER (BEAKER) 112 mg/dL 70-110 TESTED AT [address] (test vpmt=7240) [facility] [address] [id number] 13:55:00 Test Item Value Reference Range Comments PARTIAL THROMBOPLASTIN TIME (BEAKER) (test 85.9 seconds 22.5-36.0 hdcu=344) POCT-GLUCOSE [id number] 09:12:00 Test Item Value Reference Range Comments POC-GLUCOSE METER (BEAKER) 112 mg/dL 70-110 TESTED AT [address] (test iisn=0417) [facility] [address] BASIC METABOLIC [id number] 08:53:00 Test Item Value Reference Range Comments SODIUM (BEAKER) (test 134 meq/L 136-145 iqed=961) POTASSIUM (BEAKER) (test 3.8 meq/L 3.5-5.1 idaj=928) CHLORIDE (BEAKER) (test 96 meq/L 98-107 edij=775) CO2 (BEAKER) (test 23 meq/L 22-29 nbuc=013) BLOOD UREA NITROGEN 81 mg/dL 7-21 (BEAKER) (test ydir=764) CREATININE (BEAKER) (test 7.04 mg/dL 0.57-1.25 incu=134) GLUCOSE RANDOM (BEAKER) 122 mg/dL 70-105 (test piey=616) CALCIUM (BEAKER) (test 9.0 mg/dL 8.4-10.2 qare=956) EGFR (BEAKER) (test 10 mL/min/1.73 sq m ESTIMATED GFR IS NOT afxt=2261) ACCURATE CREATININE CLEARANCE IN PREDICTING GLOMERULAR FILTRATION RATE. ESTIMATED GFR IS NOT APPLICABLE FOR DIALYSIS PATIENTS. [id number] 06:04:00 Test Item Value Reference Range Comments PARTIAL THROMBOPLASTIN TIME (BEAKER) (test 105.5 seconds 22.5-36.0 wjbp=622) PROTHROMBIN [id number] 05:44:00 Test Item Value Reference Range Comments PROTIME (BEAKER) (test myms=740) 17.9 seconds 11.7-14.7 INR (BEAKER) (test ikhz=826) 1.5 <=5.9 RECOMMENDED COUMADIN/WARFARIN INR THERAPY RANGESSTANDARD DOSE: 2.0 - 3.0 Includes: PROPHYLAXIS forvenous thrombosis, systemic embolization; TREATMENT for venous thrombosis and/or pulmonary embolus.HIGH RISK: Target INR is 2.5-3.5 for patients with mechanical heart valves.CBC W/PLT COUNT & AUTO [id number] 05:22:00 Test Item Value Reference Range Comments WHITE BLOOD CELL COUNT (BEAKER) (test bomw=537) 9.4 K/ L 3.5-10.5 RED BLOOD CELL COUNT (BEAKER) (test fqdn=765) 3.41 M/ L 4.63-6.08 HEMOGLOBIN (BEAKER) (test lffs=214) 11.2 GM/DL 13.7-17.5 HEMATOCRIT (BEAKER) (test dcvb=626) 34.7 % 40.1-51.0 MEAN CORPUSCULAR VOLUME (BEAKER) (test ngbb=552) 101.8 fL 79.0-92.2 MEAN CORPUSCULAR HEMOGLOBIN (BEAKER) (test 32.8 pg 25.7-32.2 ywha=659) MEAN CORPUSCULAR HEMOGLOBIN CONC (BEAKER) (test 32.3 GM/DL 32.3-36.5 fhdv=158) RED CELL DISTRIBUTION WIDTH (BEAKER) (test 15.5 % 11.6-14.4 eote=028) PLATELET COUNT (BEAKER) (test vjqs=755) 150 K/CU MM 150-450 MEAN PLATELET VOLUME (BEAKER) (test wjdd=224) 8.7 fL 9.4-12.4 NUCLEATED RED BLOOD CELLS (BEAKER) (test 0 /100 WBC 0-0 wwmk=223) NEUTROPHILS RELATIVE PERCENT (BEAKER) (test 78 % swor=969) LYMPHOCYTES RELATIVE PERCENT (BEAKER) (test 10 % mepd=864) MONOCYTES RELATIVE PERCENT (BEAKER) (test 11 % xyin=290) EOSINOPHILS RELATIVE PERCENT (BEAKER) (test 0 % wvlg=747) BASOPHILS RELATIVE PERCENT (BEAKER) (test 0 % frrt=574) NEUTROPHILS ABSOLUTE COUNT (BEAKER) (test 7.28 K/ L 1.78-5.38 lhhj=449) LYMPHOCYTES ABSOLUTE COUNT (BEAKER) (test 0.94 K/ L 1.32-3.57 trsa=091) MONOCYTES ABSOLUTE COUNT (BEAKER) (test 1.04 K/ L 0.30-0.82 ttsl=166) EOSINOPHILS ABSOLUTE COUNT (BEAKER) (test 0.02 K/ L 0.04-0.54 zdgx=422) BASOPHILS ABSOLUTE COUNT (BEAKER) (test 0.01 K/ L 0.01-0.08 zhcl=559) IMMATURE GRANULOCYTES-RELATIVE PERCENT (BEAKER) 1 % 0-1 (test hpii=0200) CT, CHEST, WITHOUT [id number] 03:17:00FINAL REPORT EXAM: CT of the chest, without contrast CLINICAL HISTORY: evaluate lung parenchyma after effusion Technique: CT of the chest was performed without intravenous contrast administration. This exam was performed according to our departmental dose optimization program which includes automated exposure control , adjustment of the mA and/or kV according to patient's sizeand/or use of iterative reconstructive technique. COMPARISON: Chest CT 08/14/2018. FINDINGS: LOWER NECK: Within normal limits.AIRWAYS, PLEURA AND LUNGS: Patent central tracheobronchial tree. Moderate left pleural effusion with associated compressive atelectasis. Nzloa-ed-nnuyoxff loculated right pleural effusion with pleural thickening (split pleura sign) and septations. Subsegmental and round atelectasis in the right lower lobe. No pneumothorax. VESSELS: Atherosclerotic calcifications of the aortaand coronary arteries. No thoracic aortic aneurysm.HEART: Mild to moderate cardiomegaly. Status postmitral valve replacement. No pericardial effusion.ANDRZEJ AND MEDIASTINUM: Mediastinal surgical clips. Again seen are mildly enlarged and nonenlarged mediastinal lymph nodes, nonspecific. A right paratracheal lymph node measures 1.1 cm in short axis as well as subcarinal lymph node measures 1.1 cm in short axis. No hilar lymphadenopathy.VISUALIZED UPPER ABDOMEN: Trace perihepatic ascites.BONES AND SOFT TISSUES: Status post median sternotomy. Small bilateral axillary lymph nodes, nonspecific and similarto prior exam. IMPRESSION: Small to moderate loculated, thick-walled and septated right pleural effusion suspicious for an empyema. Correlate clinically.Moderate left pleural effusion with associated compressive atelectasis.Right lower lobe subsegmental and round atelectasis.Mild mediastinal lymphadenopathy nonspecific, similar to prior exam. Attention to follow up is recommendedCardiomegaly. Signed: Raz Taylor [facility] Verified Date/Time: 12/06/2018 03:17:03 Reading Location: [facility] B1 C013Y CT Body Reading Room POCT-GLUCOSE [id number] 21:22:00 Test Item Value Reference Range Comments POC-GLUCOSE METER (BEAKER) 171 mg/dL 70-110 TESTED AT [facility] [address] (test lkbg=3419) [facility] [address] POCT-GLUCOSE [id number] 17:58:00 Test Item Value Reference Range Comments POC-GLUCOSE METER (BEAKER) 128 mg/dL 70-110 TESTED AT [address] (test otxt=4134) [place] [id number] POCT-GLUCOSE [id number] 13:24:00 Test Item Value Reference Range Comments POC-GLUCOSE METER (BEAKER) 129 mg/dL 70-110 TESTED AT [address] (test fknk=4619) [place] [id number] LACTATE DEHYDROGENASE (LDH)2018-12-05 13:14:00 Test Item Value Reference Range Comments LACTATE DEHYDROGENASE (BEAKER) (test gjae=248) 291 U/L 125-220 [id number] 13:10:00 Test Item Value Reference Range Comments PARTIAL THROMBOPLASTIN TIME (BEAKER) (test 91.7 seconds 22.5-36.0 lsvw=518) POCT-GLUCOSE [id number] 08:19:00 Test Item Value Reference Range Comments POC-GLUCOSE METER (BEAKER) 106 mg/dL 70-110 TESTED AT [address] (test aqlm=9037) [facility] [address] BASIC METABOLIC [id number] 07:05:00 Test Item Value Reference Range Comments SODIUM (BEAKER) (test 137 meq/L 136-145 pwai=010) POTASSIUM (BEAKER) (test 3.7 meq/L 3.5-5.1 sqox=219) CHLORIDE (BEAKER) (test 100 meq/L 98-107 hdig=957) CO2 (BEAKER) (test 24 meq/L 22-29 ktcy=744) BLOOD UREA NITROGEN 60 mg/dL 7-21 (BEAKER) (test ypub=636) CREATININE (BEAKER) (test 5.57 mg/dL 0.57-1.25 sgow=732) GLUCOSE RANDOM (BEAKER) 113 mg/dL 70-105 (test ahqh=103) CALCIUM (BEAKER) (test 9.2 mg/dL 8.4-10.2 knaa=874) EGFR (BEAKER) (test 13 mL/min/1.73 sq m ESTIMATED GFR IS NOT hjms=0744) ACCURATE CREATININE CLEARANCE IN PREDICTING GLOMERULAR FILTRATION RATE. ESTIMATED GFR IS NOT APPLICABLE FOR DIALYSIS PATIENTS. [id number] 06:32:00 Test Item Value Reference Range Comments PROTIME (BEAKER) (test bezu=573) 19.8 seconds 11.7-14.7 INR (BEAKER) (test wweh=958) 1.6 <=5.9 PARTIAL THROMBOPLASTIN TIME (BEAKER) (test 76.5 seconds 22.5-36.0 xlpi=584) RECOMMENDED COUMADIN/WARFARIN INR THERAPY RANGESSTANDARD DOSE: 2.0 - 3.0 Includes: PROPHYLAXIS forvenous thrombosis, systemic embolization; TREATMENT for venous thrombosis and/or pulmonary embolus.HIGH RISK: Target INR is 2.5-3.5 for patients with mechanical heart valves.PROTHROMBIN [id number] 06:30: 00 Test Item Value Reference Range Comments PROTIME (BEAKER) (test shpx=326) 19.8 seconds 11.7-14.7 INR (BEAKER) (test yhdg=967) 1.6 <=5.9 RECOMMENDED COUMADIN/WARFARIN INR THERAPY RANGESSTANDARD DOSE: 2.0 - 3.0 Includes: PROPHYLAXIS forvenous thrombosis, systemic embolization; TREATMENT for venous thrombosis and/or pulmonary embolus.HIGH RISK: Target INR is 2.5-3.5 for patients with mechanical heart valves.CBC W/PLT COUNT & AUTO [id number] 06:15:00 Test Item Value Reference Range Comments WHITE BLOOD CELL COUNT (BEAKER) (test zeou=768) 7.5 K/ L 3.5-10.5 RED BLOOD CELL COUNT (BEAKER) (test ohjr=035) 3.27 M/ L 4.63-6.08 HEMOGLOBIN (BEAKER) (test gsts=800) 10.7 GM/DL 13.7-17.5 HEMATOCRIT (BEAKER) (test xbzb=522) 33.1 % 40.1-51.0 MEAN CORPUSCULAR VOLUME (BEAKER) (test kobr=979) 101.2 fL 79.0-92.2 MEAN CORPUSCULAR HEMOGLOBIN (BEAKER) (test 32.7 pg 25.7-32.2 kdaj=338) MEAN CORPUSCULAR HEMOGLOBIN CONC (BEAKER) (test 32.3 GM/DL 32.3-36.5 uszw=528) RED CELL DISTRIBUTION WIDTH (BEAKER) (test 15.3 % 11.6-14.4 otyc=994) PLATELET COUNT (BEAKER) (test yvag=242) 145 K/CU MM 150-450 MEAN PLATELET VOLUME (BEAKER) (test dboq=878) 9.1 fL 9.4-12.4 NUCLEATED RED BLOOD CELLS (BEAKER) (test 0 /100 WBC 0-0 ooxn=366) NEUTROPHILS RELATIVE PERCENT (BEAKER) (test 74 % rwbc=754) LYMPHOCYTES RELATIVE PERCENT (BEAKER) (test 13 % myvp=678) MONOCYTES RELATIVE PERCENT (BEAKER) (test 12 % synm=065) EOSINOPHILS RELATIVE PERCENT (BEAKER) (test 0 % kjlo=894) BASOPHILS RELATIVE PERCENT (BEAKER) (test 0 % bzqa=389) NEUTROPHILS ABSOLUTE COUNT (BEAKER) (test 5.57 K/ L 1.78-5.38 kkrm=916) LYMPHOCYTES ABSOLUTE COUNT (BEAKER) (test 0.94 K/ L 1.32-3.57 yywp=253) MONOCYTES ABSOLUTE COUNT (BEAKER) (test 0.91 K/ L 0.30-0.82 ghns=083) EOSINOPHILS ABSOLUTE COUNT (BEAKER) (test 0.02 K/ L 0.04-0.54 qkqi=384) BASOPHILS ABSOLUTE COUNT (BEAKER) (test 0.01 K/ L 0.01-0.08 rgld=887) IMMATURE GRANULOCYTES-RELATIVE PERCENT (BEAKER) 1 % 0-1 (test dtfc=2493) [id number] 00:40:00 Test Item Value Reference Range Comments PARTIAL THROMBOPLASTIN TIME (BEAKER) (test 63.1 seconds 22.5-36.0 ncou=601) POCT-GLUCOSE [id number] 00:12:00 Test Item Value Reference Range Comments POC-GLUCOSE METER (BEAKER) 124 mg/dL 70-110 TESTED AT [address] (test dhfs=8729) [facility] [address] HEPATITIS B SURFACE [id number] 22:54:00 Test Item Value Reference Range Comments HEPATITIS B SURFACE ANTIGEN (2) (BEAKER) (test Nonreactive Nonreactive xwfz=6869) For chronic HD patients, draw HBsAg with each admission then every 30 days.BODY FLUID CELL COUNT WITH [id number] 20:34:00 Test Item Value Reference Range Comments APPEARANCE FLUID (BEAKER) (test curo=305) Cloudy Clear COLOR FLUID (BEAKER) (test kcfk=169) Brown Colorless, Straw RBC FLUID (BEAKER) (test bsmk=358) [address]24[address] /cu mm <=1 ADJUSTED WBC FLUID (BEAKER) (test pwlr=3567) 330 /cu mm <=5 LINING CELLS (BEAKER) (test gglt=5806) 0 /cu mm <=1 NEUTROPHILS FLUID (BEAKER) (test bzgi=0014) 4 % LYMPHS FLUID (BEAKER) (test fmpz=249) 92 % MONO/MACROPHAGE FLUID (BEAKER) (test odye=831) 4 % EOSINOPHILS FLUID (BEAKER) (test fqlx=816) 0 % BASO FLUID (BEAKER) (test qcim=930) 0 % CONTAINER BODY FLUID (BEAKER) (test litl=6857) EDTA Tube LACTATE DEHYDROGENASE (LDH), BODY [id number] 19:43:00 Test Item Value Reference Range Comments LACTATE DEHYDROGENASE FLUID (BEAKER) 288 U/L Light's criteria identifies (test vasv=422) effusions if one or more are pre Absence of reference range indicates that normals have not been defined.Assay performance has not been validated for this type of specimen.U/S, [id number] 18:00:00Laterality?->RightReason for exam:-> SHORTNESS OF BREATHFINAL REPORT PROCEDURE: Ultrasound- guided thoracentesis INDICATION: 63-year-old man with shortness of breath and right pleural effusion. DESCRIPTION: After obtaining informed written consent, ultrasound scan showed a septated pleural effusion on the right. The overlying skin wasprepped and draped in the usual, sterile fashion and local 1% lidocaine anesthesia was administered.A 4 [place] catheter was advanced into the largest pocket of the septated pleural effusion and 300 ccof bloody fluid was removed. The catheter was removed without immediate complication. Samples were sent for analysis. IMPRESSION:Uncomplicated ultrasound-guided right thoracentesis with 300 cc fluid removed. Signed: Raimundo Kim MDReport Verified Date/Time: 12/2018 18:00:50 Reading Location: [facility] [id number] Ultrasound Reading Room RAD, CHEST, 1 VIEW, NON [id number] 17:23:00Reason for exam:->s/p right thoracentesisShould this be performed at the bedside?->YesFINAL REPORT EXAM: Frontal chest radiograph HISTORY PROVIDED: Status post right thoracentesis COMPARISON: 12/03/2018 IMPRESSION:There is residual small right pleural effusion with adjacent consolidation or atelectasis. Interstitial edema is similar. No discernible pneumothorax. The cardiac silhouette remains enlarged. Median sternotomy wires are again noted. No acute osseous abnormality. Signed: Kay Walter MDReport Verified Date/Time: 17:23:06 Reading Location: [facility] Reading Room C. DIFFICILE GDH [id number] 10:01:00 Test Item Value Reference Range Comments CDT TOXIN (test Negative Negative kvcw=[id number]) CDT GDH ANTIGEN (test Positive Negative C. difficile present but toxin jgge=[id number]) not detected. Indicates colonization with non-toxigenic strain or level of toxin below detectable levels. No need for enteric isolation. Treatment is rarely needed (only when strong clinical suspicion for Clostridium difficile infection) Testing performed by [employer] Rapid Cassette Assay. For GDH, published sensitivity of the assay is 98.7% compared to cytotoxicity testing. For Toxin AB, published sensitivity is 87.8% and specificity 99.4% compared to cytotoxicity testing.Verification of kit performance was done by the [facility] Microbiology Lab prior to clinical use.[id number] 09:39:00 Test Item Value Reference Range Comments PARTIAL THROMBOPLASTIN TIME (BEAKER) (test 79.4 seconds 22.5-36.0 dtqt=899) OCCULT BLOOD, [id number] 05:59:00 Test Item Value Reference Range Comments FECAL OCCULT BLOOD (BEAKER) (test jrpz=683) Negative Negative BASIC METABOLIC [id number] 02:50:00 Test Item Value Reference Range Comments SODIUM (BEAKER) (test 138 meq/L 136-145 tyid=619) POTASSIUM (BEAKER) (test 3.4 meq/L 3.5-5.1 guwl=872) CHLORIDE (BEAKER) (test 98 meq/L 98-107 fwor=962) CO2 (BEAKER) (test 25 meq/L 22-29 lnah=678) BLOOD UREA NITROGEN 96 mg/dL 7-21 (BEAKER) (test vjrt=493) CREATININE (BEAKER) (test 7.48 mg/dL 0.57-1.25 mozn=757) GLUCOSE RANDOM (BEAKER) 169 mg/dL 70-105 (test velh=279) CALCIUM (BEAKER) (test 9.4 mg/dL 8.4-10.2 ywqe=972) EGFR (BEAKER) (test 9 mL/min/1.73 sq m ESTIMATED GFR IS NOT xvfr=1440) ACCURATE CREATININE CLEARANCE IN PREDICTING GLOMERULAR FILTRATION RATE. ESTIMATED GFR IS NOT APPLICABLE FOR DIALYSIS PATIENTS. [id number] 02:50:00 Test Item Value Reference Range Comments PARTIAL THROMBOPLASTIN TIME (BEAKER) (test 35.3 seconds 22.5-36.0 qhlj=067) Prior to initiating heparinPROTHROMBIN TIME/[id number] 02:49:00 Test Item Value Reference Range Comments PROTIME (BEAKER) (test jdhz=168) 25.1 seconds 11.7-14.7 INR (BEAKER) (test vxga=626) 2.3 <=5.9 RECOMMENDED COUMADIN/WARFARIN INR THERAPY RANGESSTANDARD DOSE: 2.0 - 3.0 Includes: PROPHYLAXIS forvenous thrombosis, systemic embolization; TREATMENT for venous thrombosis and/or pulmonary embolus.HIGH RISK: Target INR is 2.5-3.5 for patients with mechanical heart valves.Prior to initiating heparinTROPONIN [id number] 02:49:00 Test Item Value Reference Range Comments TROPONIN I (BEAKER) (test csdh=056) 0.08 ng/mL 0.00-0.03 Troponin I (TnI) levels must be interpreted in the context of the presenting symptoms and the clinical findings. Elevated TnI levels indicate myocardial damage, but are not specific for ischemic heart disease. Elevated TnI levels are seen in patients with other cardiac conditions (including myocarditis and congestive heart failure), and slight TnI elevations occur in patients with other conditions, including sepsis, renal failure, acidosis, acute neurological disease, and persistent tachyarrhythmia.HEPATIC FUNCTION [id number] 02:43: 00 Test Item Value Reference Range Comments TOTAL PROTEIN (BEAKER) (test pucs=453) 7.3 gm/dL 6.0-8.3 ALBUMIN (BEAKER) (test gtqr=0526) 3.1 g/dL 3.5-5.0 BILIRUBIN TOTAL (BEAKER) (test qtpj=795) 0.8 mg/dL 0.2-1.2 BILIRUBIN DIRECT (BEAKER) (test iomf=799) 0.5 mg/dL 0.1-0.5 ALKALINE PHOSPHATASE (BEAKER) (test seev=258) 98 U/L 40-150 AST (SGOT) (BEAKER) (test hmkk=345) 28 U/L 5-34 ALT (SGPT) (BEAKER) (test ahph=480) 37 U/L 6-55 CBC W/PLT COUNT & AUTO [id number] 02:21:00 Test Item Value Reference Range Comments WHITE BLOOD CELL COUNT (BEAKER) (test vgmy=483) 8.5 K/ L 3.5-10.5 RED BLOOD CELL COUNT (BEAKER) (test afsi=035) 3.15 M/ L 4.63-6.08 HEMOGLOBIN (BEAKER) (test mpcg=137) 10.4 GM/DL 13.7-17.5 HEMATOCRIT (BEAKER) (test wpdu=871) 31.8 % 40.1-51.0 MEAN CORPUSCULAR VOLUME (BEAKER) (test gcmq=488) 101.0 fL 79.0-92.2 MEAN CORPUSCULAR HEMOGLOBIN (BEAKER) (test 33.0 pg 25.7-32.2 qacn=134) MEAN CORPUSCULAR HEMOGLOBIN CONC (BEAKER) (test 32.7 GM/DL 32.3-36.5 zkvf=351) RED CELL DISTRIBUTION WIDTH (BEAKER) (test 15.5 % 11.6-14.4 ltpm=353) PLATELET COUNT (BEAKER) (test wbuc=151) 137 K/CU MM 150-450 MEAN PLATELET VOLUME (BEAKER) (test ppva=054) 8.9 fL 9.4-12.4 NUCLEATED RED BLOOD CELLS (BEAKER) (test 0 /100 WBC 0-0 teri=454) NEUTROPHILS RELATIVE PERCENT (BEAKER) (test 75 % zpus=858) LYMPHOCYTES RELATIVE PERCENT (BEAKER) (test 12 % drvp=527) MONOCYTES RELATIVE PERCENT (BEAKER) (test 12 % bbhs=125) EOSINOPHILS RELATIVE PERCENT (BEAKER) (test 0 % vfua=818) BASOPHILS RELATIVE PERCENT (BEAKER) (test 0 % xkpw=294) NEUTROPHILS ABSOLUTE COUNT (BEAKER) (test 6.32 K/ L 1.78-5.38 eomf=338) LYMPHOCYTES ABSOLUTE COUNT (BEAKER) (test 1.00 K/ L 1.32-3.57 lier=553) MONOCYTES ABSOLUTE COUNT (BEAKER) (test 1.01 K/ L 0.30-0.82 zfuu=723) EOSINOPHILS ABSOLUTE COUNT (BEAKER) (test 0.02 K/ L 0.04-0.54 ttkn=994) BASOPHILS ABSOLUTE COUNT (BEAKER) (test 0.01 K/ L 0.01-0.08 xqxl=350) IMMATURE GRANULOCYTES-RELATIVE PERCENT (BEAKER) 2 % 0-1 (test fskt=7115) POCT-GLUCOSE [id number] 21:22:00 Test Item Value Reference Range Comments POC-GLUCOSE METER (BEAKER) 192 mg/dL 70-110 TESTED AT [facility] [address] (test weof=1875) [facility] [address] TROPONIN [id number] 17:09:00 Test Item Value Reference Range Comments TROPONIN I (BEAKER) (test tflz=365) 0.10 ng/mL 0.00-0.03 Troponin I (TnI) levels must be interpreted in the context of the presenting symptoms and the clinical findings. Elevated TnI levels indicate myocardial damage, but are not specific for ischemic heart disease. Elevated TnI levels are seen in patients with other cardiac conditions (including myocarditis and congestive heart failure), and slight TnI elevations occur in patients with other conditions, including sepsis, renal failure, acidosis, acute neurological disease, and persistent tachyarrhythmia.RAD, CHEST, 1 VIEW, NON [id number] 15:36:00Reason for exam:->SHORTNESS OF BREATHShould this be performed at the bedside?->YesFINAL REPORT AP chest HISTORY: Shortness of breath. COMPARISON: 11/03/2017. IMPRESSION: Cardiomegaly. Mild interstitial edema. Right effusion and adjacent atelectasis. No pneumothorax. Signed: Mandy Chairez MDReport Verified Date/Time: 12/03/2018 15:36:19 Reading Location: [address] Radiology Reading Room YNIN [id number] 14:48:00 Test Item Value Reference Range Comments TROPONIN I (BEAKER) (test zfof=890) 0.10 ng/mL 0.00-0.03 Troponin I (TnI) levels must be interpreted in the context of the presenting symptoms and the clinical findings. Elevated TnI levels indicate myocardial damage, but are not specific for ischemic heart disease. Elevated TnI levels are seen in patients with other cardiac conditions (including myocarditis and congestive heart failure), and slight TnI elevations occur in patients with other conditions, including sepsis, renal failure, acidosis, acute neurological disease, and persistent tachyarrhythmia.B-TYPE NATRIURETIC FACTOR (BNP) 14:47:00 Test Item Value Reference Range Comments B-TYPE NATRIURETIC PEPTIDE (BEAKER) (test 2959 pg/mL 0-100 dtma=938) BASIC METABOLIC [id number] 14:40:00 Test Item Value Reference Range Comments SODIUM (BEAKER) (test 137 meq/L 136-145 ivhv=215) POTASSIUM (BEAKER) (test 3.3 meq/L 3.5-5.1 shni=960) CHLORIDE (BEAKER) (test 99 meq/L 98-107 onyp=749) CO2 (BEAKER) (test 24 meq/L 22-29 obbq=974) BLOOD UREA NITROGEN 85 mg/dL 7-21 (BEAKER) (test wolh=891) CREATININE (BEAKER) (test 6.72 mg/dL 0.57-1.25 odnb=714) GLUCOSE RANDOM (BEAKER) 158 mg/dL 70-105 (test htvs=784) CALCIUM (BEAKER) (test 9.7 mg/dL 8.4-10.2 daei=098) EGFR (BEAKER) (test 10 mL/min/1.73 sq m ESTIMATED GFR IS NOT zcev=1853) ACCURATE CREATININE CLEARANCE IN PREDICTING GLOMERULAR FILTRATION RATE. ESTIMATED GFR IS NOT APPLICABLE FOR DIALYSIS PATIENTS. [id number] 14:34:00 Test Item Value Reference Range Comments PROTIME (BEAKER) (test jvlo=233) 25.4 seconds 11.7-14.7 INR (BEAKER) (test urhb=219) 2.3 <=5.9 PARTIAL THROMBOPLASTIN TIME (BEAKER) (test 34.3 seconds 22.5-36.0 dbtj=388) RECOMMENDED COUMADIN/WARFARIN INR THERAPY RANGESSTANDARD DOSE: 2.0 - 3.0 Includes: PROPHYLAXIS forvenous thrombosis, systemic embolization; TREATMENT for venous thrombosis and/or pulmonary embolus.HIGH RISK: Target INR is 2.5-3.5 for patients with mechanical heart valves.CBC W/PLT COUNT & AUTO [id number] 14:25:00 Test Item Value Reference Range Comments WHITE BLOOD CELL COUNT (BEAKER) (test dsju=073) 8.5 K/ L 3.5-10.5 RED BLOOD CELL COUNT (BEAKER) (test aego=774) 3.26 M/ L 4.63-6.08 HEMOGLOBIN (BEAKER) (test burj=459) 10.9 GM/DL 13.7-17.5 HEMATOCRIT (BEAKER) (test jdhg=752) 33.3 % 40.1-51.0 MEAN CORPUSCULAR VOLUME (BEAKER) (test ysgw=491) 102.1 fL 79.0-92.2 MEAN CORPUSCULAR HEMOGLOBIN (BEAKER) (test 33.4 pg 25.7-32.2 wkqq=689) MEAN CORPUSCULAR HEMOGLOBIN CONC (BEAKER) (test 32.7 GM/DL 32.3-36.5 jctr=704) RED CELL DISTRIBUTION WIDTH (BEAKER) (test 15.3 % 11.6-14.4 ggdm=818) PLATELET COUNT (BEAKER) (test jpwq=497) 162 K/CU MM 150-450 MEAN PLATELET VOLUME (BEAKER) (test xdfg=965) 9.2 fL 9.4-12.4 NUCLEATED RED BLOOD CELLS (BEAKER) (test 0 /100 WBC 0-0 egoi=342) NEUTROPHILS RELATIVE PERCENT (BEAKER) (test 74 % qdnc=800) LYMPHOCYTES RELATIVE PERCENT (BEAKER) (test 13 % rtjn=325) MONOCYTES RELATIVE PERCENT (BEAKER) (test 11 % vuvv=294) EOSINOPHILS RELATIVE PERCENT (BEAKER) (test 0 % krur=346) BASOPHILS RELATIVE PERCENT (BEAKER) (test 0 % minp=242) NEUTROPHILS ABSOLUTE COUNT (BEAKER) (test 6.31 K/ L 1.78-5.38 cliq=190) LYMPHOCYTES ABSOLUTE COUNT (BEAKER) (test 1.07 K/ L 1.32-3.57 vczi=752) MONOCYTES ABSOLUTE COUNT (BEAKER) (test 0.96 K/ L 0.30-0.82 yuid=238) EOSINOPHILS ABSOLUTE COUNT (BEAKER) (test 0.01 K/ L 0.04-0.54 rjvy=032) BASOPHILS ABSOLUTE COUNT (BEAKER) (test 0.01 K/ L 0.01-0.08 hpre=376) IMMATURE GRANULOCYTES-RELATIVE PERCENT (BEAKER) 2 % 0-1 (test tdan=4458) RAD, CHEST, 2 [id number] 15:24:00Reason for Exam:->chronic Diastolic heart FailureFINAL REPORT TECHNIQUE: Frontal and lateral views of the chest. INDICATION: 63-year-old man with chronic diastolic heart failure. COMPARISON: Chest radiograph 08/18/2018. FINDINGS: LINES/TUBES: None. LUNGS: Hazy airspace opacity in the right lung base. Remainder of the lungs are clear. PLEURA: Persistent small right pleural effusion. No pneumothorax. HEART AND MEDIASTINUM: Unchanged prominence of the cardiac silhouette. 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 Tortuous thoracic aorta. SOFT TISSUES AND BONES: Unchanged median sternotomy wires. IMPRESSION:Persistent small right pleural effusion. Adjacent airspace opacity in the right lung base likely represents atelectasis, however superimposed pneumonia cannot be excluded. Signed: Raimundo Kim MDReport Verified Date/ Time: 11/03/2018 15:24:42 Reading Location: [address] Radiology Reading Room MISCELLANEOUS LAB [id number] 08:22:00 Test Item Value Reference Range Comments SCAN RESULT (test hzmp=[id number]) PROTHROMBIN [id number] 08:37:00 Test Item Value Reference Range Comments PROTIME (BEAKER) (test carb=043) 24.8 seconds 11.7-14.7 INR (BEAKER) (test nxny=855) 2.2 <=5.9 RECOMMENDED COUMADIN/WARFARIN INR THERAPY RANGESSTANDARD DOSE: 2.0 - 3.0 Includes: PROPHYLAXIS forvenous thrombosis, systemic embolization; TREATMENT for venous thrombosis and/or pulmonary embolus.HIGH RISK: Target INR is 2.5-3.5 for patients with mechanical heart valves.POCT-GLUCOSE [id number] 08:10:00 Test Item Value Reference Range Comments POC-GLUCOSE METER (BEAKER) 89 mg/dL 70-110 TESTED AT [facility] [address] (test zjfs=4899) [facility] [address] BASIC METABOLIC [id number] 06:29:00 Test Item Value Reference Range Comments SODIUM (BEAKER) (test 134 meq/L 136-145 bgmz=846) POTASSIUM (BEAKER) (test 4.2 meq/L 3.5-5.1 kkzn=393) CHLORIDE (BEAKER) (test 97 meq/L 98-107 qmvh=523) CO2 (BEAKER) (test 29 meq/L 22-29 voqf=514) BLOOD UREA NITROGEN 22 mg/dL 7-21 (BEAKER) (test keon=945) CREATININE (BEAKER) (test 5.61 mg/dL 0.57-1.25 jmgv=934) GLUCOSE RANDOM (BEAKER) 87 mg/dL 70-105 (test yrxw=505) CALCIUM (BEAKER) (test 9.0 mg/dL 8.4-10.2 fevt=198) EGFR (BEAKER) (test 13 mL/min/1.73 sq m ESTIMATED GFR IS NOT kyal=5374) ACCURATE CREATININE CLEARANCE IN PREDICTING GLOMERULAR FILTRATION RATE. ESTIMATED GFR IS NOT APPLICABLE FOR DIALYSIS PATIENTS. [id number] 06:28:00 Test Item Value Reference Range Comments MAGNESIUM (BEAKER) (test vwhi=602) 1.8 mg/dL 1.6-2.6 [id number] 06:14:00 Test Item Value Reference Range Comments PARTIAL THROMBOPLASTIN TIME (BEAKER) (test 64.7 seconds 22.5-36.0 jctv=465) CBC W/PLT COUNT & AUTO [id number] 05:58:00 Test Item Value Reference Range Comments WHITE BLOOD CELL COUNT (BEAKER) (test uvlh=630) 5.4 K/ L 3.5-10.5 RED BLOOD CELL COUNT (BEAKER) (test uocn=130) 3.28 M/ L 4.63-6.08 HEMOGLOBIN (BEAKER) (test tpdr=857) 10.7 GM/DL 13.7-17.5 HEMATOCRIT (BEAKER) (test hjrp=820) 32.8 % 40.1-51.0 MEAN CORPUSCULAR VOLUME (BEAKER) (test zlvt=878) 100.0 fL 79.0-92.2 MEAN CORPUSCULAR HEMOGLOBIN (BEAKER) (test 32.6 pg 25.7-32.2 hdlm=610) MEAN CORPUSCULAR HEMOGLOBIN CONC (BEAKER) (test 32.6 GM/DL 32.3-36.5 cziv=400) RED CELL DISTRIBUTION WIDTH (BEAKER) (test 14.3 % 11.6-14.4 yopr=951) PLATELET COUNT (BEAKER) (test hnla=201) 121 K/CU MM 150-450 MEAN PLATELET VOLUME (BEAKER) (test chnt=720) 9.0 fL 9.4-12.4 NUCLEATED RED BLOOD CELLS (BEAKER) (test 0 /100 WBC 0-0 mfgw=144) NEUTROPHILS RELATIVE PERCENT (BEAKER) (test 64 % youp=277) LYMPHOCYTES RELATIVE PERCENT (BEAKER) (test 18 % mrex=529) MONOCYTES RELATIVE PERCENT (BEAKER) (test 15 % aiac=754) EOSINOPHILS RELATIVE PERCENT (BEAKER) (test 2 % adno=228) BASOPHILS RELATIVE PERCENT (BEAKER) (test 1 % vvvt=443) NEUTROPHILS ABSOLUTE COUNT (BEAKER) (test 3.45 K/ L 1.78-5.38 soed=914) LYMPHOCYTES ABSOLUTE COUNT (BEAKER) (test 0.96 K/ L 1.32-3.57 qkec=789) MONOCYTES ABSOLUTE COUNT (BEAKER) (test 0.78 K/ L 0.30-0.82 gsyq=927) EOSINOPHILS ABSOLUTE COUNT (BEAKER) (test 0.11 K/ L 0.04-0.54 xvsz=438) BASOPHILS ABSOLUTE COUNT (BEAKER) (test 0.03 K/ L 0.01-0.08 dfhj=445) IMMATURE GRANULOCYTES-RELATIVE PERCENT (BEAKER) 1 % 0-1 (test dexl=6964) POCT-GLUCOSE [id number] 21:14:00 Test Item Value Reference Range Comments POC-GLUCOSE METER (BEAKER) 135 mg/dL 70-110 TESTED AT [facility] [address] (test hgnb=2721) [facility] [address] [id number] 19:36:00 Test Item Value Reference Range Comments PARTIAL THROMBOPLASTIN TIME (BEAKER) (test 88.6 seconds 22.5-36.0 gzji=723) POCT-GLUCOSE [id number] 18:27:00 Test Item Value Reference Range Comments POC-GLUCOSE METER (BEAKER) 88 mg/dL 70-110 TESTED AT [address] (test dffr=1862) [facility] [address] POCT-GLUCOSE [id number] 12:05:00 Test Item Value Reference Range Comments POC-GLUCOSE METER (BEAKER) 92 mg/dL 70-110 TESTED AT [address] (test sisk=1099) [place] [id number] 11:46:00 Test Item Value Reference Range Comments PARTIAL THROMBOPLASTIN TIME (BEAKER) (test 74.3 seconds 22.5-36.0 fvfy=495) POCT-GLUCOSE [id number] 10:36:00 Test Item Value Reference Range Comments POC-GLUCOSE METER (BEAKER) 101 mg/dL 70-110 TESTED AT [address] (test trgk=5388) [facility] [address] POCT-GLUCOSE [id number] 07:10:00 Test Item Value Reference Range Comments POC-GLUCOSE METER (BEAKER) 92 mg/dL 70-110 TESTED AT [address] (test nbap=2129) [facility] [address] PROTHROMBIN [id number] 01:41:00 Test Item Value Reference Range Comments PROTIME (BEAKER) (test sjhd=236) 22.8 seconds 11.7-14.7 INR (BEAKER) (test evjc=172) 2.0 <=5.9 RECOMMENDED COUMADIN/WARFARIN INR THERAPY RANGESSTANDARD DOSE: 2.0 - 3.0 Includes: PROPHYLAXIS forvenous thrombosis, systemic embolization; TREATMENT for venous thrombosis and/or pulmonary embolus.HIGH RISK: Target INR is 2.5-3.5 for patients with mechanical heart valves.While on warfarin.[id number] 01:41 :00 Test Item Value Reference Range Comments PARTIAL THROMBOPLASTIN TIME (BEAKER) (test 52.3 seconds 22.5-36.0 nigi=525) While on warfarin.BASIC METABOLIC [id number] 01:37:00 Test Item Value Reference Range Comments SODIUM (BEAKER) (test 134 meq/L 136-145 xlll=444) POTASSIUM (BEAKER) (test 4.6 meq/L 3.5-5.1 zcmc=173) CHLORIDE (BEAKER) (test 99 meq/L 98-107 oghy=103) CO2 (BEAKER) (test 24 meq/L 22-29 tsoc=297) BLOOD UREA NITROGEN 35 mg/dL 7-21 (BEAKER) (test lysn=563) CREATININE (BEAKER) (test 7.31 mg/dL 0.57-1.25 rdvw=988) GLUCOSE RANDOM (BEAKER) 87 mg/dL 70-105 (test ttia=614) CALCIUM (BEAKER) (test 9.2 mg/dL 8.4-10.2 bjcm=644) EGFR (BEAKER) (test 9 mL/min/1.73 sq m ESTIMATED GFR IS NOT ycqh=7634) ACCURATE CREATININE CLEARANCE IN PREDICTING GLOMERULAR FILTRATION RATE. ESTIMATED GFR IS NOT APPLICABLE FOR DIALYSIS PATIENTS. [id number] 01:32:00 Test Item Value Reference Range Comments MAGNESIUM (BEAKER) (test hyoz=582) 1.8 mg/dL 1.6-2.6 CBC W/PLT COUNT & AUTO [id number] 01:18:00 Test Item Value Reference Range Comments WHITE BLOOD CELL COUNT (BEAKER) (test lgog=047) 6.7 K/ L 3.5-10.5 RED BLOOD CELL COUNT (BEAKER) (test akvo=407) 3.38 M/ L 4.63-6.08 HEMOGLOBIN (BEAKER) (test gpsc=185) 10.9 GM/DL 13.7-17.5 HEMATOCRIT (BEAKER) (test kpfm=446) 33.6 % 40.1-51.0 MEAN CORPUSCULAR VOLUME (BEAKER) (test jzic=660) 99.4 fL 79.0-92.2 MEAN CORPUSCULAR HEMOGLOBIN (BEAKER) (test 32.2 pg 25.7-32.2 hbgt=470) MEAN CORPUSCULAR HEMOGLOBIN CONC (BEAKER) (test 32.4 GM/DL 32.3-36.5 jegv=173) RED CELL DISTRIBUTION WIDTH (BEAKER) (test 14.1 % 11.6-14.4 uojt=582) PLATELET COUNT (BEAKER) (test hrer=928) 160 K/CU MM 150-450 MEAN PLATELET VOLUME (BEAKER) (test gymy=786) 9.0 fL 9.4-12.4 NUCLEATED RED BLOOD CELLS (BEAKER) (test 0 /100 WBC 0-0 sevp=735) NEUTROPHILS RELATIVE PERCENT (BEAKER) (test 70 % qjlh=362) LYMPHOCYTES RELATIVE PERCENT (BEAKER) (test 15 % xudk=418) MONOCYTES RELATIVE PERCENT (BEAKER) (test 12 % bafc=769) EOSINOPHILS RELATIVE PERCENT (BEAKER) (test 2 % gcly=868) BASOPHILS RELATIVE PERCENT (BEAKER) (test 1 % rder=686) NEUTROPHILS ABSOLUTE COUNT (BEAKER) (test 4.66 K/ L 1.78-5.38 zcqc=439) LYMPHOCYTES ABSOLUTE COUNT (BEAKER) (test 0.97 K/ L 1.32-3.57 lfta=262) MONOCYTES ABSOLUTE COUNT (BEAKER) (test 0.82 K/ L 0.30-0.82 jyci=758) EOSINOPHILS ABSOLUTE COUNT (BEAKER) (test 0.16 K/ L 0.04-0.54 kqyl=133) BASOPHILS ABSOLUTE COUNT (BEAKER) (test 0.05 K/ L 0.01-0.08 nhlm=660) IMMATURE GRANULOCYTES-RELATIVE PERCENT (BEAKER) 1 % 0-1 (test rcex=3369) [id number] 23:23:00 Test Item Value Reference Range Comments PARTIAL THROMBOPLASTIN TIME (BEAKER) (test 125.2 seconds 22.5-36.0 klre=902) POCT-GLUCOSE [id number] 21:19:00 Test Item Value Reference Range Comments POC-GLUCOSE METER (BEAKER) 165 mg/dL 70-110 TESTED AT [address] (test ugxr=3451) [place] [id number] POCT-GLUCOSE [id number] 18:34:00 Test Item Value Reference Range Comments POC-GLUCOSE METER (BEAKER) 92 mg/dL 70-110 TESTED AT [address] (test jxmc=2130) [facility] [address] [id number] 17:17:00 Test Item Value Reference Range Comments PARTIAL THROMBOPLASTIN TIME (BEAKER) (test 75.2 seconds 22.5-36.0 onhy=301) POCT-GLUCOSE [id number] 12:48:00 Test Item Value Reference Range Comments POC-GLUCOSE METER (BEAKER) 105 mg/dL 70-110 TESTED AT [address] (test pdkv=6144) [place] [address] RAD, CHEST, 1 VIEW, NON [id number] 11:00:00Reason for exam:->eval right effusionShould this be performed at the bedside?->YesFINAL REPORT Comparison: 08/15/2018 TECHNIQUE: Single view of the chest FINDINGS : Small to moderate right pleural effusion is stable. Small left pleural effusion may be slightly increased. Vascular congestion seen. No other significant change. Signed: Kyle Rome Verified Date/Time: 2017 11:00:36 Reading Location: [facility] Radiology Reading Room Electronicallysigned by: KYLE ROME M.D. on 08/18/2018 11:00 [id number] 09:48:00 Test Item Value Reference Range Comments PARTIAL THROMBOPLASTIN TIME (BEAKER) (test 48.8 seconds 22.5-36.0 scqh=784) POCT-GLUCOSE [id number] 07:37:00 Test Item Value Reference Range Comments POC-GLUCOSE METER (BEAKER) 96 mg/dL 70-110 TESTED AT [address] (test dtyp=9639) [place] [id number] BASIC METABOLIC [id number] 02:24:00 Test Item Value Reference Range Comments SODIUM (BEAKER) (test 136 meq/L 136-145 iepj=814) POTASSIUM (BEAKER) (test 4.4 meq/L 3.5-5.1 doqj=759) CHLORIDE (BEAKER) (test 99 meq/L 98-107 bamn=404) CO2 (BEAKER) (test 26 meq/L 22-29 rdah=264) BLOOD UREA NITROGEN 29 mg/dL 7-21 (BEAKER) (test ddrr=057) CREATININE (BEAKER) (test 5.95 mg/dL 0.57-1.25 putg=805) GLUCOSE RANDOM (BEAKER) 96 mg/dL 70-105 (test fgkx=042) CALCIUM (BEAKER) (test 9.1 mg/dL 8.4-10.2 ehpk=320) EGFR (BEAKER) (test 12 mL/min/1.73 sq m ESTIMATED GFR IS NOT frxh=3911) ACCURATE CREATININE CLEARANCE IN PREDICTING GLOMERULAR FILTRATION RATE. ESTIMATED GFR IS NOT APPLICABLE FOR DIALYSIS PATIENTS. [id number] 02:22:00 Test Item Value Reference Range Comments MAGNESIUM (BEAKER) (test tdkg=299) 1.7 mg/dL 1.6-2.6 [id number] 02:15:00 Test Item Value Reference Range Comments PARTIAL THROMBOPLASTIN TIME (BEAKER) (test 98.9 seconds 22.5-36.0 mdng=173) PROTHROMBIN [id number] 02:13:00 Test Item Value Reference Range Comments PROTIME (BEAKER) (test shzq=103) 21.6 seconds 11.7-14.7 INR (BEAKER) (test ipkc=560) 1.9 <=5.9 RECOMMENDED COUMADIN/WARFARIN INR THERAPY RANGESSTANDARD DOSE: 2.0 - 3.0 Includes: PROPHYLAXIS forvenous thrombosis, systemic embolization; TREATMENT for venous thrombosis and/or pulmonary embolus.HIGH RISK: Target INR is 2.5-3.5 for patients with mechanical heart valves.CBC W/PLT COUNT & AUTO [id number] 02:09:00 Test Item Value Reference Range Comments WHITE BLOOD CELL COUNT (BEAKER) (test ydcy=941) 6.8 K/ L 3.5-10.5 RED BLOOD CELL COUNT (BEAKER) (test qqnq=399) 3.29 M/ L 4.63-6.08 HEMOGLOBIN (BEAKER) (test igxa=764) 10.7 GM/DL 13.7-17.5 HEMATOCRIT (BEAKER) (test nelt=419) 33.2 % 40.1-51.0 MEAN CORPUSCULAR VOLUME (BEAKER) (test wpka=234) 100.9 fL 79.0-92.2 MEAN CORPUSCULAR HEMOGLOBIN (BEAKER) (test 32.5 pg 25.7-32.2 mngm=655) MEAN CORPUSCULAR HEMOGLOBIN CONC (BEAKER) (test 32.2 GM/DL 32.3-36.5 rxmr=060) RED CELL DISTRIBUTION WIDTH (BEAKER) (test 14.2 % 11.6-14.4 nfvo=480) PLATELET COUNT (BEAKER) (test ldjm=760) 157 K/CU MM 150-450 MEAN PLATELET VOLUME (BEAKER) (test twxd=657) 9.1 fL 9.4-12.4 NUCLEATED RED BLOOD CELLS (BEAKER) (test 0 /100 WBC 0-0 thlz=005) NEUTROPHILS RELATIVE PERCENT (BEAKER) (test 66 % xtmv=248) LYMPHOCYTES RELATIVE PERCENT (BEAKER) (test 16 % dfoo=698) MONOCYTES RELATIVE PERCENT (BEAKER) (test 15 % xqvh=912) EOSINOPHILS RELATIVE PERCENT (BEAKER) (test 3 % xiji=742) BASOPHILS RELATIVE PERCENT (BEAKER) (test 1 % oesg=673) NEUTROPHILS ABSOLUTE COUNT (BEAKER) (test 4.48 K/ L 1.78-5.38 helj=285) LYMPHOCYTES ABSOLUTE COUNT (BEAKER) (test 1.06 K/ L 1.32-3.57 rscn=870) MONOCYTES ABSOLUTE COUNT (BEAKER) (test 0.99 K/ L 0.30-0.82 ahmj=047) EOSINOPHILS ABSOLUTE COUNT (BEAKER) (test 0.17 K/ L 0.04-0.54 qjgf=268) BASOPHILS ABSOLUTE COUNT (BEAKER) (test 0.05 K/ L 0.01-0.08 cyij=673) IMMATURE GRANULOCYTES-RELATIVE PERCENT (BEAKER) 1 % 0-1 (test txyk=9790) POCT-GLUCOSE [id number] 21:51:00 Test Item Value Reference Range Comments POC-GLUCOSE METER (BEAKER) 98 mg/dL 70-110 TESTED AT [address] (test gexi=6604) [facility] [id number] [id number] 18:51:00 Test Item Value Reference Range Comments PARTIAL THROMBOPLASTIN TIME (BEAKER) (test 56.1 seconds 22.5-36.0 luyz=831) [id number] 17:06:00 Test Item Value Reference Range Comments PARTIAL THROMBOPLASTIN TIME (BEAKER) (test 121.9 seconds 22.5-36.0 rifc=962) POCT-GLUCOSE [id number] 16:46:00 Test Item Value Reference Range Comments POC-GLUCOSE METER (BEAKER) 135 mg/dL 70-110 TESTED AT [address] (test tosr=9052) [facility] [id number] POCT-GLUCOSE [id number] 13:28:00 Test Item Value Reference Range Comments POC-GLUCOSE METER (BEAKER) 96 mg/dL 70-110 TESTED AT [facility] [address] [facility] (test woeh=7440) [facility] [address] [id number] 09:15:00 Test Item Value Reference Range Comments PARTIAL THROMBOPLASTIN TIME (BEAKER) (test 58.1 seconds 22.5-36.0 tfcz=866) BASIC METABOLIC [id number] 07:31:00 Test Item Value Reference Range Comments SODIUM (BEAKER) (test 136 meq/L 136-145 vfhk=609) POTASSIUM (BEAKER) (test 4.0 meq/L 3.5-5.1 arin=583) CHLORIDE (BEAKER) (test 101 meq/L 98-107 dsbn=068) CO2 (BEAKER) (test 25 meq/L 22-29 cxub=398) BLOOD UREA NITROGEN 21 mg/dL 7-21 (BEAKER) (test ylne=780) CREATININE (BEAKER) (test 4.75 mg/dL 0.57-1.25 ajut=338) GLUCOSE RANDOM (BEAKER) 93 mg/dL 70-105 (test xcwc=355) CALCIUM (BEAKER) (test 8.9 mg/dL 8.4-10.2 hlfs=941) EGFR (BEAKER) (test 15 mL/min/1.73 sq m ESTIMATED GFR IS NOT rnzq=8589) ACCURATE CREATININE CLEARANCE IN PREDICTING GLOMERULAR FILTRATION RATE. ESTIMATED GFR IS NOT APPLICABLE FOR DIALYSIS PATIENTS. [id number] 07:19:00 Test Item Value Reference Range Comments PHOSPHORUS (BEAKER) (test xoff=975) 3.7 mg/dL 2.3-4.7 [id number] 07:19:00 Test Item Value Reference Range Comments MAGNESIUM (BEAKER) (test ugtn=748) 1.7 mg/dL 1.6-2.6 [id number] 07:07:00 Test Item Value Reference Range Comments PARTIAL THROMBOPLASTIN TIME (BEAKER) (test 124.4 seconds 22.5-36.0 joay=180) PROTHROMBIN [id number] 07:02:00 Test Item Value Reference Range Comments PROTIME (BEAKER) (test ywyq=216) 19.8 seconds 11.7-14.7 INR (BEAKER) (test ankm=642) 1.7 <=5.9 RECOMMENDED COUMADIN/WARFARIN INR THERAPY RANGESSTANDARD DOSE: 2.0 - 3.0 Includes: PROPHYLAXIS forvenous thrombosis, systemic embolization; TREATMENT for venous thrombosis and/or pulmonary embolus.HIGH RISK: Target INR is 2.5-3.5 for patients with mechanical heart valves.While on warfarin.PROTHROMBIN TIME/ [id number] 07:02:00 Test Item Value Reference Range Comments PROTIME (BEAKER) (test zqqg=475) 19.8 seconds 11.7-14.7 INR (BEAKER) (test fnum=706) 1.7 <=5.9 RECOMMENDED COUMADIN/WARFARIN INR THERAPY RANGESSTANDARD DOSE: 2.0 - 3.0 Includes: PROPHYLAXIS forvenous thrombosis, systemic embolization; TREATMENT for venous thrombosis and/or pulmonary embolus.HIGH RISK: Target INR is 2.5-3.5 for patients with mechanical heart valves.CBC W/PLT COUNT & AUTO [id number] 06:53:00 Test Item Value Reference Range Comments WHITE BLOOD CELL COUNT (BEAKER) (test napj=899) 6.3 K/ L 3.5-10.5 RED BLOOD CELL COUNT (BEAKER) (test phlz=965) 3.34 M/ L 4.63-6.08 HEMOGLOBIN (BEAKER) (test hkca=830) 10.7 GM/DL 13.7-17.5 HEMATOCRIT (BEAKER) (test oapp=552) 33.6 % 40.1-51.0 MEAN CORPUSCULAR VOLUME (BEAKER) (test emxw=044) 100.6 fL 79.0-92.2 MEAN CORPUSCULAR HEMOGLOBIN (BEAKER) (test 32.0 pg 25.7-32.2 sscz=006) MEAN CORPUSCULAR HEMOGLOBIN CONC (BEAKER) (test 31.8 GM/DL 32.3-36.5 elyy=760) RED CELL DISTRIBUTION WIDTH (BEAKER) (test 14.2 % 11.6-14.4 eslm=969) PLATELET COUNT (BEAKER) (test nrwt=173) 159 K/CU MM 150-450 MEAN PLATELET VOLUME (BEAKER) (test nvda=584) 9.0 fL 9.4-12.4 NUCLEATED RED BLOOD CELLS (BEAKER) (test 0 /100 WBC 0-0 wdlx=176) NEUTROPHILS RELATIVE PERCENT (BEAKER) (test 67 % vfue=042) LYMPHOCYTES RELATIVE PERCENT (BEAKER) (test 15 % gxiz=261) MONOCYTES RELATIVE PERCENT (BEAKER) (test 14 % gqbc=795) EOSINOPHILS RELATIVE PERCENT (BEAKER) (test 2 % omen=517) BASOPHILS RELATIVE PERCENT (BEAKER) (test 1 % exiq=928) NEUTROPHILS ABSOLUTE COUNT (BEAKER) (test 4.25 K/ L 1.78-5.38 qulu=576) LYMPHOCYTES ABSOLUTE COUNT (BEAKER) (test 0.96 K/ L 1.32-3.57 wrve=404) MONOCYTES ABSOLUTE COUNT (BEAKER) (test 0.88 K/ L 0.30-0.82 curo=635) EOSINOPHILS ABSOLUTE COUNT (BEAKER) (test 0.13 K/ L 0.04-0.54 qhqp=482) BASOPHILS ABSOLUTE COUNT (BEAKER) (test 0.04 K/ L 0.01-0.08 zfqj=887) IMMATURE GRANULOCYTES-RELATIVE PERCENT (BEAKER) 1 % 0-1 (test edyv=8845) [id number] 23:01:00 Test Item Value Reference Range Comments PARTIAL THROMBOPLASTIN TIME (BEAKER) (test 46.5 seconds 22.5-36.0 lues=059) POCT-GLUCOSE [id number] 22:45:00 Test Item Value Reference Range Comments POC-GLUCOSE METER (BEAKER) 144 mg/dL 70-110 TESTED AT [address] (test yoti=7959) [place] [address] [id number] 15:02:00 Test Item Value Reference Range Comments PARTIAL THROMBOPLASTIN TIME (BEAKER) (test 56.1 seconds 22.5-36.0 zavl=697) POCT-GLUCOSE [id number] 14:39:00 Test Item Value Reference Range Comments POC-GLUCOSE METER (BEAKER) 189 mg/dL 70-110 TESTED AT [address] (test mfeb=5135) [place] [address] HIV-1 PCR, [id number] 13:58:00 Test Item Value Reference Range Comments HIV-1 NUMERIC RESULT (BEAKER) (test aqln=8504) 170 Cp/mL <20 This test uses a Real-Time Polymerase Chain Reaction (RT-PCR) methodology to detect a highly conserved region of the HIV-1 gag gene and was performed using the ERICH AmpliPrep/ERICH TaqMan HIV-1 test kit version 2.0 ([employer]Reportable range for this assay is 20 - 10,000,000 copies per mL (1.3 - 7.0 Log copies/mL).[id number] 12:54:00 Test Item Value Reference Range Comments PARTIAL THROMBOPLASTIN TIME (BEAKER) (test 143.6 seconds 22.5-36.0 ksbv=000) [id number] 10:00:00Medical Cytology Report Case: [id number] Authorizing Provider: Sd Solano MD Collected: 08/13/2018 [id number] Ordering Location: [address] Received: 08/14/2018 0934 Service Pathologist: Yamil Hamm MD Specimen: Pleural, Right RIGHT PLEURAL FLUID (CYTOSPINS AND CELL BLOCK): - NO MALIGNANT CELLS IDENTIFIED (SEE COMMENT) Signing Pathologist Direct Phone Line: [phone] signed by Yamil Hamm MD on 08/16/2018 at 10:00 AMCytospins show a few mesothelial cells, macrophages in a background of mixed inflammatory cells composed of mainly lymphocytes. Cell block sections are predominantly paucicellular with rare groups of epithelioid cells with mild atypia. Immunostains were performed to further evaluate and those groups of epithelial cells are not seen on the deeper levels. Those epithelioid cells are favored to be reactive mesothelial cells. Immunostains performed on cell block sections highlight a few mesothelial cells;while TTF1 and MOC31 are predominantly negative. Clinical/ radiological correlation is recommended. If clinically discordant, repeat thoracentesis may be considered when fluid reaccumulates. 77494, 98443, 78860, 90723 x 2Left pleural effusion, history of AIDS, Kaposi's sarcoma, hepatitis C.RIGHT PLEURAL FLUID 300 mls bloody; 4 cytospins, cell blockCollected: [id number]: [id number] interpretation of this case included the use of immunohistochemistry or special stains. Please see the immunohistochemistry results in the COMMENT section. Immunohistochemistry technical testing was performed at [facility], Pathology Laboratory where it was developed and its performance characteristics were determined. It has not been cleared or approved by the U.S. Food and Drug Administration. The FDA has determined that such clearance or approval is not necessary. The test is used for clinical purposes. It should not be regarded as investigational or for research. This laboratory is certified under the Clinical Laboratory Improvement Amendments of 1988 (CLIA-88) as qualified [facility] clinical [facility] testing.[facility], Department of Pathology, [address] [place] [address], Tel S[facility], [facility], [address] [place] [address], [facility]cpvgRes[facility], [facility] of [facility], [address] [place] [address], Tel [phone]-[id number] [id number] 08:29:00 Test Item Value Reference Range Comments POC-GLUCOSE METER (BEAKER) 96 mg/dL 70-110 TESTED AT [address] (test xgob=2006) [place] [address] BODY FLUID CULTURE + GRAM [id number] 07:54:00 Test Item Value Reference Range Comments CULTURE (BEAKER) (test anqp=7237) No growth GRAM STAIN RESULT (BEAKER) (test <1+ WBCs hpsg=7229) GRAM STAIN RESULT (BEAKER) (test No organisms seen rsjc=68199) BASIC METABOLIC [id number] 06:30:00 Test Item Value Reference Range Comments SODIUM (BEAKER) (test 132 meq/L 136-145 iwfq=288) POTASSIUM (BEAKER) (test 4.0 meq/L 3.5-5.1 cpiq=713) CHLORIDE (BEAKER) (test 99 meq/L 98-107 qwsz=731) CO2 (BEAKER) (test 21 meq/L 22-29 sreu=542) BLOOD UREA NITROGEN 41 mg/dL 7-21 (BEAKER) (test tjfp=835) CREATININE (BEAKER) (test 6.80 mg/dL 0.57-1.25 cjhn=887) GLUCOSE RANDOM (BEAKER) 95 mg/dL 70-105 (test pqzc=034) CALCIUM (BEAKER) (test 8.7 mg/dL 8.4-10.2 kgqf=909) EGFR (BEAKER) (test 10 mL/min/1.73 sq m ESTIMATED GFR IS NOT hiru=2559) ACCURATE CREATININE CLEARANCE IN PREDICTING GLOMERULAR FILTRATION RATE. ESTIMATED GFR IS NOT APPLICABLE FOR DIALYSIS PATIENTS. [id number] 06:26:00 Test Item Value Reference Range Comments MAGNESIUM (BEAKER) (test mpqw=875) 1.6 mg/dL 1.6-2.6 [id number] 05:48:00 Test Item Value Reference Range Comments PARTIAL THROMBOPLASTIN TIME (BEAKER) (test 80.3 seconds 22.5-36.0 yiou=195) While on warfarin.PROTHROMBIN TIME/[id number] 05:46:00 Test Item Value Reference Range Comments PROTIME (BEAKER) (test ljsq=500) 18.4 seconds 11.7-14.7 INR (BEAKER) (test xqiu=628) 1.5 <=5.9 RECOMMENDED COUMADIN/WARFARIN INR THERAPY RANGESSTANDARD DOSE: 2.0 - 3.0 Includes: PROPHYLAXIS forvenous thrombosis, systemic embolization; TREATMENT for venous thrombosis and/or pulmonary embolus.HIGH RISK: Target INR is 2.5-3.5 for patients with mechanical heart valves.While on warfarin.CBC W/PLT COUNT &amp ; AUTO [id number] 05:28:00 Test Item Value Reference Range Comments WHITE BLOOD CELL COUNT (BEAKER) (test pumt=075) 7.8 K/ L 3.5-10.5 RED BLOOD CELL COUNT (BEAKER) (test ftso=101) 3.27 M/ L 4.63-6.08 HEMOGLOBIN (BEAKER) (test nyoq=480) 10.5 GM/DL 13.7-17.5 HEMATOCRIT (BEAKER) (test oagg=960) 33.2 % 40.1-51.0 MEAN CORPUSCULAR VOLUME (BEAKER) (test xegf=696) 101.5 fL 79.0-92.2 MEAN CORPUSCULAR HEMOGLOBIN (BEAKER) (test 32.1 pg 25.7-32.2 stbf=345) MEAN CORPUSCULAR HEMOGLOBIN CONC (BEAKER) (test 31.6 GM/DL 32.3-36.5 kcvs=105) RED CELL DISTRIBUTION WIDTH (BEAKER) (test 13.8 % 11.6-14.4 fowa=249) PLATELET COUNT (BEAKER) (test ipdk=150) 155 K/CU MM 150-450 MEAN PLATELET VOLUME (BEAKER) (test kpwf=774) 9.0 fL 9.4-12.4 NUCLEATED RED BLOOD CELLS (BEAKER) (test 0 /100 WBC 0-0 gqrg=584) NEUTROPHILS RELATIVE PERCENT (BEAKER) (test 71 % xmdt=710) LYMPHOCYTES RELATIVE PERCENT (BEAKER) (test 13 % vbvr=226) MONOCYTES RELATIVE PERCENT (BEAKER) (test 13 % jmxj=142) EOSINOPHILS RELATIVE PERCENT (BEAKER) (test 2 % lddx=250) BASOPHILS RELATIVE PERCENT (BEAKER) (test 1 % lneu=405) NEUTROPHILS ABSOLUTE COUNT (BEAKER) (test 5.49 K/ L 1.78-5.38 ocpn=437) LYMPHOCYTES ABSOLUTE COUNT (BEAKER) (test 1.00 K/ L 1.32-3.57 krep=215) MONOCYTES ABSOLUTE COUNT (BEAKER) (test 1.03 K/ L 0.30-0.82 bxqr=740) EOSINOPHILS ABSOLUTE COUNT (BEAKER) (test 0.16 K/ L 0.04-0.54 gqfc=626) BASOPHILS ABSOLUTE COUNT (BEAKER) (test 0.05 K/ L 0.01-0.08 gnig=036) IMMATURE GRANULOCYTES-RELATIVE PERCENT (BEAKER) 1 % 0-1 (test uxdb=5390) [id number] 22:09:00 Test Item Value Reference Range Comments PARTIAL THROMBOPLASTIN TIME (BEAKER) (test 61.5 seconds 22.5-36.0 jpuj=458) RAD, CHEST, 1 VIEW, NON [id number] 20:20:00Reason for exam:->eval right effusionShould this be performed at the bedside?->YesFINAL REPORT Chest one view AP 08/15/2018 8:19 PM CLINICAL INDICATION: eval right effusion COMPARISON: 08/13/2018 IMPRESSION: There are similar appearing small volume right and trace left pleural effusions. Opacity in the right lung base may reflect atelectasis or pneumonia. No focal opacity is evident in the left lung. Cardiomediastinal contours are stable. There is mild interstitial edema, without remarkable central pulmonary vasculature congestion. Cardiac support hardwareis unchanged in position. Signed: Yevgeniy Anderson Verified Date/Time: 08/15/2018 20:20:24 [facility] Electronically signed by: YEVGENIY ANDERSON M.D. on 08:20 PMPOCT-GLUCOSE [id number] 19:05:00 Test Item Value Reference Range Comments POC-GLUCOSE METER (BEAKER) 87 mg/dL 70-110 TESTED AT [address] (test yuyb=4715) [place] [id number] POCT-GLUCOSE [id number] 13:12:00 Test Item Value Reference Range Comments POC-GLUCOSE METER (BEAKER) 162 mg/dL 70-110 TESTED AT [address] (test qtzb=5840) [place] [address] [id number] 12:48:00 Test Item Value Reference Range Comments PARTIAL THROMBOPLASTIN TIME (BEAKER) (test 89.1 seconds 22.5-36.0 bvac=809) POCT-GLUCOSE [id number] 09:58:00 Test Item Value Reference Range Comments POC-GLUCOSE METER (BEAKER) 229 mg/dL 70-110 TESTED AT [address] (test yxvt=2110) [place] [id number] BASIC METABOLIC [id number] 05:40:00 Test Item Value Reference Range Comments SODIUM (BEAKER) (test 137 meq/L 136-145 ogxh=714) POTASSIUM (BEAKER) (test 3.6 meq/L 3.5-5.1 toor=429) CHLORIDE (BEAKER) (test 102 meq/L 98-107 iwcy=554) CO2 (BEAKER) (test 25 meq/L 22-29 doxz=653) BLOOD UREA NITROGEN 28 mg/dL 7-21 (BEAKER) (test rzki=475) CREATININE (BEAKER) (test 5.36 mg/dL 0.57-1.25 arcb=145) GLUCOSE RANDOM (BEAKER) 114 mg/dL 70-105 (test xkxf=063) CALCIUM (BEAKER) (test 8.6 mg/dL 8.4-10.2 khsb=256) EGFR (BEAKER) (test 13 mL/min/1.73 sq m ESTIMATED GFR IS NOT mxpo=2126) ACCURATE CREATININE CLEARANCE IN PREDICTING GLOMERULAR FILTRATION RATE. ESTIMATED GFR IS NOT APPLICABLE FOR DIALYSIS PATIENTS. CBC W/PLT COUNT & AUTO [id number] 05:38:00 Test Item Value Reference Range Comments WHITE BLOOD CELL COUNT (BEAKER) (test zaok=301) 6.9 K/ L 3.5-10.5 RED BLOOD CELL COUNT (BEAKER) (test cwwm=974) 3.13 M/ L 4.63-6.08 HEMOGLOBIN (BEAKER) (test wcom=242) 10.3 GM/DL 13.7-17.5 HEMATOCRIT (BEAKER) (test oqpq=460) 32.2 % 40.1-51.0 MEAN CORPUSCULAR VOLUME (BEAKER) (test opdt=613) 102.9 fL 79.0-92.2 MEAN CORPUSCULAR HEMOGLOBIN (BEAKER) (test 32.9 pg 25.7-32.2 brzl=470) MEAN CORPUSCULAR HEMOGLOBIN CONC (BEAKER) (test 32.0 GM/DL 32.3-36.5 qvrq=355) RED CELL DISTRIBUTION WIDTH (BEAKER) (test 14.0 % 11.6-14.4 mvud=326) PLATELET COUNT (BEAKER) (test ypel=997) 140 K/CU MM 150-450 MEAN PLATELET VOLUME (BEAKER) (test yjcb=318) 9.0 fL 9.4-12.4 NUCLEATED RED BLOOD CELLS (BEAKER) (test 0 /100 WBC 0-0 pbrw=641) NEUTROPHILS RELATIVE PERCENT (BEAKER) (test 67 % dkqe=184) LYMPHOCYTES RELATIVE PERCENT (BEAKER) (test 14 % mnen=532) MONOCYTES RELATIVE PERCENT (BEAKER) (test 16 % cmnl=432) EOSINOPHILS RELATIVE PERCENT (BEAKER) (test 1 % fnjm=325) BASOPHILS RELATIVE PERCENT (BEAKER) (test 1 % fvzk=054) NEUTROPHILS ABSOLUTE COUNT (BEAKER) (test 4.63 K/ L 1.78-5.38 wnmm=492) LYMPHOCYTES ABSOLUTE COUNT (BEAKER) (test 0.96 K/ L 1.32-3.57 rghp=674) MONOCYTES ABSOLUTE COUNT (BEAKER) (test 1.13 K/ L 0.30-0.82 camq=776) EOSINOPHILS ABSOLUTE COUNT (BEAKER) (test 0.10 K/ L 0.04-0.54 zaeo=650) BASOPHILS ABSOLUTE COUNT (BEAKER) (test 0.05 K/ L 0.01-0.08 odzk=410) IMMATURE GRANULOCYTES-RELATIVE PERCENT (BEAKER) 0 % 0-1 (test phlz=7071) [id number] 05:28:00 Test Item Value Reference Range Comments MAGNESIUM (BEAKER) (test hukr=212) 1.8 mg/dL 1.6-2.6 [id number] 04:47:00 Test Item Value Reference Range Comments PARTIAL THROMBOPLASTIN TIME (BEAKER) (test 60.9 seconds 22.5-36.0 bfjx=190) PROTHROMBIN TIME/[id number] 04:46:00 Test Item Value Reference Range Comments PROTIME (BEAKER) (test peuf=165) 17.9 seconds 11.7-14.7 INR (BEAKER) (test utgz=466) 1.5 <=5.9 RECOMMENDED COUMADIN/WARFARIN INR THERAPY RANGESSTANDARD DOSE: 2.0 - 3.0 Includes: PROPHYLAXIS forvenous thrombosis, systemic embolization; TREATMENT for venous thrombosis and/or pulmonary embolus.HIGH RISK: Target INR is 2.5-3.5 for patients with mechanical heart valves.[id number] 20:56:00 Test Item Value Reference Range Comments PARTIAL THROMBOPLASTIN TIME (BEAKER) (test 52.1 seconds 22.5-36.0 tzpv=352) CT, CHEST, WITHOUT [id number] 19:06:00S/p fall in Nov--> right effusion, tapped twice. ESRD, HIV, Diastolic dysfunctionFINAL REPORT CT scan of the chest: CLINICAL HISTORY: Recurrent right pleural effusion Comparison exam: Chest x-ray 08/13/2018 TECHNIQUE: CT scan chest without intravenous contrast. Dose modulation, iterative reconstruction, and/or weight based adjustment of the mA/kV was utilized to reduce the radiation dose to as low as reasonably achievable. FINDINGS: Small bilateral pleuraleffusions. Right lower lobe rounded atelectasis extending to the posterior pleural margin. Left posterior basilar atelectasis. Normal trachea and mainstem bronchi. Normal caliber thoracic aorta and central pulmonary arteries. 1.5 cm nonspecific right paratracheal mediastinal lymph node. Additional smaller mediastinal lymph nodes. Mild cardiomegaly. No pericardial effusion. Prosthetic mitral valve. Left atrial appendage ligation clip. Atherosclerotic coronary artery calcification. No acute or significant skeletal abnormalities. Previous median sternotomy. Normal muscles and subcutaneous fat. Images of the upper abdomen demonstrate borderline splenomegaly. IMPRESSION: 1. Small bilateral pleural effusions. 2. Right lower lobe rounded atelectasis, suggestive of relatively long-standing atelectasis and associated pleural effusion. 3. 1.5 cm nonspecific right paratracheal mediastinal lymph node. Signed: Louie Tapia MDReport Verified Date/Time: 08/14/2018 19:06:09 Reading Location: [address] Reading Room [id number] 12:40:00 Test Item Value Reference Range Comments PARTIAL THROMBOPLASTIN TIME (BEAKER) (test 48.4 seconds 22.5-36.0 lbzj=850) CD4 T CELL [id number] 11:15:00 Test Item Value Reference Range Comments TOTAL LYMPHOCYTES FC (BEAKER) (test kywb=3621) 935 /cu mm CD3+ TOTAL T CELLS % FC (BEAKER) (test zohu=1398) 78 % 49-84 CD3+ TOTAL T CELLS ABSOLUTE FC (BEAKER) (test 726 /cu mm 603-2,990 smpe=3186) CD3+/CD8+ T SUPPRESSOR CELLS % FC (BEAKER) (test 33 % 10-40 kfxc=7520) CD3+/CD8+ T SUPPRESSOR CELLS ABS FC (BEAKER) 309 /cu mm 125-1,312 (test zspr=9595) CD3+/CD4+ T HELPER CELLS % FC (BEAKER) (test 43 % 28-63 uvna=9368) CD3+/CD4+ T HELPER CELLS ABS FC (BEAKER) (test 399 /cu mm 441-2,156 dakd=6698) CD4/CD8 RATIO FC (BEAKER) (test jwyp=4791) 1.29 0.70-3.23 CD16+/CD56+ NATURAL KILLER CELLS % FC (BEAKER) 11 % 4-25 (test kmiw=4632) CD16+/CD56+ NATURAL KILLER CELLS ABS FC (BEAKER) 107 /cu mm 95-640 (test rvbe=6081) CD19+ TOTAL B CELLS % FC (BEAKER) (test 11 % 6-27 zhwc=8005) CD19+ TOTAL B CELLS ABS FC (BEAKER) (test 101 /cu mm 107-698 vcce=9662) [id number] 10:48:00 Test Item Value Reference Range Comments PHOSPHORUS (BEAKER) (test vlym=934) 5.2 mg/dL 2.3-4.7 BASIC METABOLIC [id number] 07:13:00 Test Item Value Reference Range Comments SODIUM (BEAKER) (test 132 meq/L 136-145 efdh=036) POTASSIUM (BEAKER) (test 3.6 meq/L 3.5-5.1 ssfi=667) CHLORIDE (BEAKER) (test 94 meq/L 98-107 drkk=165) CO2 (BEAKER) (test 24 meq/L 22-29 grne=822) BLOOD UREA NITROGEN 49 mg/dL 7-21 (BEAKER) (test ored=699) CREATININE (BEAKER) (test 7.61 mg/dL 0.57-1.25 kmvz=137) GLUCOSE RANDOM (BEAKER) 99 mg/dL 70-105 (test cbnp=826) CALCIUM (BEAKER) (test 8.5 mg/dL 8.4-10.2 vsrg=262) EGFR (BEAKER) (test 9 mL/min/1.73 sq m ESTIMATED GFR IS NOT agij=4717) ACCURATE CREATININE CLEARANCE IN PREDICTING GLOMERULAR FILTRATION RATE. ESTIMATED GFR IS NOT APPLICABLE FOR DIALYSIS PATIENTS. [id number] 07:11:00 Test Item Value Reference Range Comments MAGNESIUM (BEAKER) (test osju=835) 1.8 mg/dL 1.6-2.6 [id number] 07:00:00 Test Item Value Reference Range Comments PARTIAL THROMBOPLASTIN TIME (BEAKER) (test 59.2 seconds 22.5-36.0 hydj=394) PROTHROMBIN [id number] 06:59:00 Test Item Value Reference Range Comments PROTIME (BEAKER) (test ljqv=857) 18.1 seconds 11.7-14.7 INR (BEAKER) (test fzbr=051) 1.5 <=5.9 RECOMMENDED COUMADIN/WARFARIN INR THERAPY RANGESSTANDARD DOSE: 2.0 - 3.0 Includes: PROPHYLAXIS forvenous thrombosis, systemic embolization; TREATMENT for venous thrombosis and/or pulmonary embolus.HIGH RISK: Target INR is 2.5-3.5 for patients with mechanical heart valves.CBC W/PLT COUNT & AUTO [id number] 06:57:00 Test Item Value Reference Range Comments WHITE BLOOD CELL COUNT (BEAKER) (test zgmm=798) 5.8 K/ L 3.5-10.5 RED BLOOD CELL COUNT (BEAKER) (test fhgx=939) 3.20 M/ L 4.63-6.08 HEMOGLOBIN (BEAKER) (test osbi=871) 10.4 GM/DL 13.7-17.5 HEMATOCRIT (BEAKER) (test bwno=387) 32.1 % 40.1-51.0 MEAN CORPUSCULAR VOLUME (BEAKER) (test qqza=537) 100.3 fL 79.0-92.2 MEAN CORPUSCULAR HEMOGLOBIN (BEAKER) (test 32.5 pg 25.7-32.2 wwvr=171) MEAN CORPUSCULAR HEMOGLOBIN CONC (BEAKER) (test 32.4 GM/DL 32.3-36.5 mofr=597) RED CELL DISTRIBUTION WIDTH (BEAKER) (test 13.8 % 11.6-14.4 bnrf=591) PLATELET COUNT (BEAKER) (test rusj=934) 139 K/CU MM 150-450 MEAN PLATELET VOLUME (BEAKER) (test jpcn=300) 9.3 fL 9.4-12.4 NUCLEATED RED BLOOD CELLS (BEAKER) (test 0 /100 WBC 0-0 yrfe=703) NEUTROPHILS RELATIVE PERCENT (BEAKER) (test 65 % rspk=317) LYMPHOCYTES RELATIVE PERCENT (BEAKER) (test 16 % jyei=152) MONOCYTES RELATIVE PERCENT (BEAKER) (test 17 % ckjm=539) EOSINOPHILS RELATIVE PERCENT (BEAKER) (test 2 % eczj=599) BASOPHILS RELATIVE PERCENT (BEAKER) (test 1 % hxzr=345) NEUTROPHILS ABSOLUTE COUNT (BEAKER) (test 3.72 K/ L 1.78-5.38 rpsc=530) LYMPHOCYTES ABSOLUTE COUNT (BEAKER) (test 0.90 K/ L 1.32-3.57 xsvr=053) MONOCYTES ABSOLUTE COUNT (BEAKER) (test 0.98 K/ L 0.30-0.82 czsd=078) EOSINOPHILS ABSOLUTE COUNT (BEAKER) (test 0.10 K/ L 0.04-0.54 sgum=458) BASOPHILS ABSOLUTE COUNT (BEAKER) (test 0.04 K/ L 0.01-0.08 emwr=490) IMMATURE GRANULOCYTES-RELATIVE PERCENT (BEAKER) 1 % 0-1 (test xtkl=2280) [id number] 00:30:00 Test Item Value Reference Range Comments PARTIAL THROMBOPLASTIN TIME (BEAKER) (test 56.7 seconds 22.5-36.0 tmsf=075) BODY FLUID CELL COUNT WITH [id number] 19:28:00 Test Item Value Reference Range Comments APPEARANCE FLUID (BEAKER) (test zipn=925) Cloudy Clear COLOR FLUID (BEAKER) (test etak=336) Red Colorless, Straw RBC FLUID (BEAKER) (test jbsy=825) [address]8739 /cu mm <=1 ADJUSTED WBC FLUID (BEAKER) (test ghpv=7182) 968 /cu mm <=5 LINING CELLS (BEAKER) (test uwsr=5592) 0 /cu mm <=1 NEUTROPHILS FLUID (BEAKER) (test kzcw=7305) 18 % LYMPHS FLUID (BEAKER) (test aaok=220) 61 % MONO/MACROPHAGE FLUID (BEAKER) (test cdwv=676) 21 % EOSINOPHILS FLUID (BEAKER) (test mtxg=775) 0 % BASO FLUID (BEAKER) (test yeuo=620) 0 % CONTAINER BODY FLUID (BEAKER) (test gles=7770) EDTA Tube ALBUMIN, BODY [id number] 18:40:00 Test Item Value Reference Range Comments ALBUMIN FLUID (BEAKER) (test pddl=709) 2.1 gm/dL Reference Range: No Normals Assay performance has not been validated for this type of specimen.LACTATE DEHYDROGENASE (LDH), BODY [id number] 18:40:00 Test Item Value Reference Range Comments LACTATE DEHYDROGENASE FLUID (BEAKER) (test pmtt=178) 268 U/L Absence of reference range indicates that normals have not been defined.Assay performance has not been validated for this type of specimen.GLUCOSE, BODY [id number] 18:40:00 Test Item Value Reference Range Comments GLUCOSE, BODY FLUID (BEAKER) (test xykn=1851) 102 mg/dL Absence of reference range indicates that normals have not been defined.Assay performance has not been validated for this type of specimen.LACTATE DEHYDROGENASE (LDH)2018-08-13 18:40:00 Test Item Value Reference Range Comments LACTATE DEHYDROGENASE (BEAKER) (test xloa=024) 280 U/L 125-220 HEPATIC FUNCTION [id number] 18:40:00 Test Item Value Reference Range Comments TOTAL PROTEIN (BEAKER) (test uina=217) 8.2 gm/dL 6.0-8.3 ALBUMIN (BEAKER) (test fphh=6005) 3.3 g/dL 3.5-5.0 BILIRUBIN TOTAL (BEAKER) (test nehz=186) 1.0 mg/dL 0.2-1.2 BILIRUBIN DIRECT (BEAKER) (test buca=815) 0.6 mg/dL 0.1-0.5 ALKALINE PHOSPHATASE (BEAKER) (test kxnk=754) 85 U/L 40-150 AST (SGOT) (BEAKER) (test swys=112) 38 U/L 5-34 ALT (SGPT) (BEAKER) (test xkju=421) 32 U/L 6-55 RAD, CHEST, 1 VIEW, NON [id number] 17:56:00Reason for exam:->post Right thoracentesisShould this be performed at the bedside?->YesFINAL REPORT Chest, one view. HISTORY: Right thoracentesis COMPARISON : Radiograph from earlier today IMPRESSION: Interval decrease in size of the pleural effusion on the right which is now small. No pneumothorax. Mild right basilar subsegmental atelectasis. The cardiac silhouette is enlarged and unchanged. Prior valve replacement and atrial appendage closure. Interstitial edema. Signed: Katherine Arteaga MDReport Verified Date/Time: 08/13/2018 17:56:18 Reading Location: [facility] [id number] Consult Reading Room U/S, [id number] 16:22 :00Reason for exam:->shortness of breath, recurrent right pleural effusionShould this be performed at the bedside?->NoFINAL REPORT Ultrasound guided right thoracentesis, 08/13/2018. Clinical History: Right pleural effusion. Modality: Ultrasound. Sedation: None. Showroom Salesperson: Gini. Grid Trimmer: None. Estimated Blood Loss: 1cc Specimen: 1600 cc of serosanguineous fluid.Technique: Informed consent was obtained. The risks of pain, bleeding, infection, lung collapse/pneumothorax, injury to adjacent structures, and adverse medication reactions were discussed with the patient. The patient's right hemithorax was scanned from the back, with the patient in a sitting position. After the largest fluid pocket area was marked, the skin was prepped and draped in the usual sterile manner. The area was anesthetized with 1% lidocaine, a 5 F one-step catheter was advanced into the pleural space under ultrasound guidance. After completion of drainage, the catheter was removed. There was no evidence of immediate complication. Post procedure chest x-ray is pending. Patient disposition: Patient was discharged from the ultrasound department after the thoracentesis in good condition. Impression:Successful and uncomplicated ultrasound guided right thoracentesis. Signed: [facility] Verified Date/Time: 08/13/2018 16:22:16 Reading Location: [address] Ultrasound Reading Room [id number] 07:18:00 Test Item Value Reference Range Comments MAGNESIUM (BEAKER) (test kaao=794) 2.0 mg/dL 1.6-2.6 BASIC METABOLIC [id number] 07:18:00 Test Item Value Reference Range Comments SODIUM (BEAKER) (test 134 meq/L 136-145 lujz=774) POTASSIUM (BEAKER) (test 3.6 meq/L 3.5-5.1 byzm=010) CHLORIDE (BEAKER) (test 94 meq/L 98-107 jrpo=730) CO2 (BEAKER) (test 28 meq/L 22-29 wtzi=756) BLOOD UREA NITROGEN 37 mg/dL 7-21 (BEAKER) (test ihbf=629) CREATININE (BEAKER) (test 5.93 mg/dL 0.57-1.25 slny=590) GLUCOSE RANDOM (BEAKER) 101 mg/dL 70-105 (test gjtd=066) CALCIUM (BEAKER) (test 8.9 mg/dL 8.4-10.2 ipbi=657) EGFR (BEAKER) (test 12 mL/min/1.73 sq m ESTIMATED GFR IS NOT tddh=4136) ACCURATE CREATININE CLEARANCE IN PREDICTING GLOMERULAR FILTRATION RATE. ESTIMATED GFR IS NOT APPLICABLE FOR DIALYSIS PATIENTS. RAD, CHEST, 1 VIEW, NON [id number] 06:25:00Reason for exam:->SOBShould this be performed at the bedside?->YesFINAL REPORT RAD , CHEST, 1 VIEW, NON DEPT INDICATION: SOB COMPARISON: Plain radiograph the chest dated 08/05/2018. FINDINGS: Portable frontal view of the chest. IMPRESSION: Lungs and pleura: Unchanged discoid atelectasis in the right middle lung. Unchanged moderate right pleural effusion with adjacent atelectasis , however superimposed infection cannot be excluded. Mild pulmonary vascular congestion and interstitial pulmonary edema is unchanged. No pneumothorax. Heart and mediastinum: Stable contours. Stable surgical changes.Additional findings: None. Signed: Sobeida Taylor Verified Date/Time: 2017 06:25:21 Reading Location: [address] Transitional Reading Room [id number] 05:49:00 Test Item Value Reference Range Comments PARTIAL THROMBOPLASTIN TIME (BEAKER) (test 42.0 seconds 22.5-36.0 olmb=189) PROTHROMBIN [id number] 05:48:00 Test Item Value Reference Range Comments PROTIME (BEAKER) (test iyrh=303) 22.1 seconds 11.7-14.7 INR (BEAKER) (test dclq=314) 1.9 <=5.9 RECOMMENDED COUMADIN/WARFARIN INR THERAPY RANGESSTANDARD DOSE: 2.0 - 3.0 Includes: PROPHYLAXIS forvenous thrombosis, systemic embolization; TREATMENT for venous thrombosis and/or pulmonary embolus.HIGH RISK: Target INR is 2.5-3.5 for patients with mechanical heart valves.CBC W/PLT COUNT & AUTO [id number] 05:37:00 Test Item Value Reference Range Comments WHITE BLOOD CELL COUNT (BEAKER) (test mkyk=903) 6.1 K/ L 3.5-10.5 RED BLOOD CELL COUNT (BEAKER) (test xhyw=728) 3.12 M/ L 4.63-6.08 HEMOGLOBIN (BEAKER) (test kzjn=982) 10.4 GM/DL 13.7-17.5 HEMATOCRIT (BEAKER) (test dgxa=441) 31.4 % 40.1-51.0 MEAN CORPUSCULAR VOLUME (BEAKER) (test phyg=949) 100.6 fL 79.0-92.2 MEAN CORPUSCULAR HEMOGLOBIN (BEAKER) (test 33.3 pg 25.7-32.2 ebzq=033) MEAN CORPUSCULAR HEMOGLOBIN CONC (BEAKER) (test 33.1 GM/DL 32.3-36.5 qzzd=785) RED CELL DISTRIBUTION WIDTH (BEAKER) (test 14.3 % 11.6-14.4 zdlf=641) PLATELET COUNT (BEAKER) (test qzxl=888) 143 K/CU MM 150-450 MEAN PLATELET VOLUME (BEAKER) (test cixm=773) 9.3 fL 9.4-12.4 NUCLEATED RED BLOOD CELLS (BEAKER) (test 0 /100 WBC 0-0 utxv=946) NEUTROPHILS RELATIVE PERCENT (BEAKER) (test 64 % mhwk=151) LYMPHOCYTES RELATIVE PERCENT (BEAKER) (test 13 % xntl=035) MONOCYTES RELATIVE PERCENT (BEAKER) (test 21 % zkcb=399) EOSINOPHILS RELATIVE PERCENT (BEAKER) (test 2 % lxcm=368) BASOPHILS RELATIVE PERCENT (BEAKER) (test 1 % grci=976) NEUTROPHILS ABSOLUTE COUNT (BEAKER) (test 3.85 K/ L 1.78-5.38 tirr=473) LYMPHOCYTES ABSOLUTE COUNT (BEAKER) (test 0.77 K/ L 1.32-3.57 jckc=747) MONOCYTES ABSOLUTE COUNT (BEAKER) (test 1.27 K/ L 0.30-0.82 kbwm=115) EOSINOPHILS ABSOLUTE COUNT (BEAKER) (test 0.09 K/ L 0.04-0.54 wnnl=065) BASOPHILS ABSOLUTE COUNT (BEAKER) (test 0.05 K/ L 0.01-0.08 yihm=821) IMMATURE GRANULOCYTES-RELATIVE PERCENT (BEAKER) 0 % 0-1 (test cpiq=8862) POCT-GLUCOSE [id number] 18:30:00 Test Item Value Reference Range Comments POC-GLUCOSE METER (BEAKER) 80 mg/dL 70-110 TESTED AT [facility] [address] (test gnxb=2637) [facility] [address] RAD, CHEST, 1 VIEW, NON [id number] 13:46:00Reason for exam:->evaluate pleural effusionShould this be performed at the bedside?->YesFINAL REPORT Comparison: 08/02/2018 TECHNIQUE: Single view of the chest FINDINGS Bilateral interstitial and airspace opacities are stable. Bilateral pleural effusions seen, right greater than left. No gross new lung parenchymal changes. Post surgical changes in the mediastinum. IMPRESSION: No significant interval change. Signed: Kyle Romeepdamion Verified Date/Time: 08/06/2018 13:46:20 Reading Location: [facility] Radiology Reading Room [id number] 09:33:00 Test Item Value Reference Range Comments PARTIAL THROMBOPLASTIN TIME (BEAKER) (test 113.6 seconds 22.5-36.0 qzpy=367) [id number] 06:48:00 Test Item Value Reference Range Comments PROTIME (BEAKER) (test xvee=214) 23.2 seconds 11.7-14.7 INR (BEAKER) (test vani=253) 2.1 <=5.9 PARTIAL THROMBOPLASTIN TIME (BEAKER) (test 164.1 seconds 22.5-36.0 ivmu=314) RECOMMENDED COUMADIN/WARFARIN INR THERAPY RANGESSTANDARD DOSE: 2.0 - 3.0 Includes: PROPHYLAXIS forvenous thrombosis, systemic embolization; TREATMENT for venous thrombosis and/or pulmonary embolus.HIGH RISK: Target INR is 2.5-3.5 for patients with mechanical heart valves.While on warfarin.While on warfarin.BASIC METABOLIC [id number] 06:45:00 Test Item Value Reference Range Comments SODIUM (BEAKER) (test 136 meq/L 136-145 xlin=674) POTASSIUM (BEAKER) (test 3.9 meq/L 3.5-5.1 Specimen slightly jozy=220) hemolyzed CHLORIDE (BEAKER) (test 98 meq/L 98-107 mggm=727) CO2 (BEAKER) (test 29 meq/L 22-29 gtoi=569) BLOOD UREA NITROGEN 27 mg/dL 7-21 (BEAKER) (test tmdo=789) CREATININE (BEAKER) (test 5.78 mg/dL 0.57-1.25 Specimen slightly dxnu=575) hemolyzed GLUCOSE RANDOM (BEAKER) 92 mg/dL 70-105 (test osux=171) CALCIUM (BEAKER) (test 9.2 mg/dL 8.4-10.2 eics=611) EGFR (BEAKER) (test 12 mL/min/1.73 sq m ESTIMATED GFR IS NOT ykdc=3529) ACCURATE CREATININE CLEARANCE IN PREDICTING GLOMERULAR FILTRATION RATE. ESTIMATED GFR IS NOT APPLICABLE FOR DIALYSIS PATIENTS. PROTHROMBIN TIME/[id number] 06:43:00 Test Item Value Reference Range Comments PROTIME (BEAKER) (test phza=175) 23.2 seconds 11.7-14.7 INR (BEAKER) (test yuxs=886) 2.1 <=5.9 RECOMMENDED COUMADIN/WARFARIN INR THERAPY RANGESSTANDARD DOSE: 2.0 - 3.0 Includes: PROPHYLAXIS forvenous thrombosis, systemic embolization; TREATMENT for venous thrombosis and/or pulmonary embolus.HIGH RISK: Target INR is 2.5-3.5 for patients with mechanical heart valves.CBC W/PLT COUNT & AUTO [id number] 06:34:00 Test Item Value Reference Range Comments WHITE BLOOD CELL COUNT (BEAKER) (test qrxd=048) 6.0 K/ L 3.5-10.5 RED BLOOD CELL COUNT (BEAKER) (test kmhy=835) 3.40 M/ L 4.63-6.08 HEMOGLOBIN (BEAKER) (test xzmw=385) 11.2 GM/DL 13.7-17.5 HEMATOCRIT (BEAKER) (test xxxw=152) 34.2 % 40.1-51.0 MEAN CORPUSCULAR VOLUME (BEAKER) (test iiaw=870) 100.6 fL 79.0-92.2 MEAN CORPUSCULAR HEMOGLOBIN (BEAKER) (test 32.9 pg 25.7-32.2 jezi=726) MEAN CORPUSCULAR HEMOGLOBIN CONC (BEAKER) (test 32.7 GM/DL 32.3-36.5 mixd=839) RED CELL DISTRIBUTION WIDTH (BEAKER) (test 14.9 % 11.6-14.4 kvwk=848) PLATELET COUNT (BEAKER) (test wazs=860) 117 K/CU MM 150-450 MEAN PLATELET VOLUME (BEAKER) (test uloi=771) 9.5 fL 9.4-12.4 NUCLEATED RED BLOOD CELLS (BEAKER) (test 0 /100 WBC 0-0 dzou=975) NEUTROPHILS RELATIVE PERCENT (BEAKER) (test 65 % paob=854) LYMPHOCYTES RELATIVE PERCENT (BEAKER) (test 17 % ccxz=351) MONOCYTES RELATIVE PERCENT (BEAKER) (test 16 % umkw=090) EOSINOPHILS RELATIVE PERCENT (BEAKER) (test 2 % xieu=051) BASOPHILS RELATIVE PERCENT (BEAKER) (test 1 % bhxi=817) NEUTROPHILS ABSOLUTE COUNT (BEAKER) (test 3.90 K/ L 1.78-5.38 qijv=280) LYMPHOCYTES ABSOLUTE COUNT (BEAKER) (test 1.00 K/ L 1.32-3.57 esoz=665) MONOCYTES ABSOLUTE COUNT (BEAKER) (test 0.94 K/ L 0.30-0.82 lnan=176) EOSINOPHILS ABSOLUTE COUNT (BEAKER) (test 0.13 K/ L 0.04-0.54 tsxy=700) BASOPHILS ABSOLUTE COUNT (BEAKER) (test 0.04 K/ L 0.01-0.08 ofzq=641) IMMATURE GRANULOCYTES-RELATIVE PERCENT (BEAKER) 0 % 0-1 (test yseg=8559) CBC (HEMOGRAM ONLY)2018-08-06 06:23:00 Test Item Value Reference Range Comments WHITE BLOOD CELL COUNT (BEAKER) (test uons=996) 6.0 K/ L 3.5-10.5 RED BLOOD CELL COUNT (BEAKER) (test duuy=717) 3.40 M/ L 4.63-6.08 HEMOGLOBIN (BEAKER) (test umig=533) 11.2 GM/DL 13.7-17.5 HEMATOCRIT (BEAKER) (test rtod=379) 34.2 % 40.1-51.0 MEAN CORPUSCULAR VOLUME (BEAKER) (test lqrq=349) 100.6 fL 79.0-92.2 MEAN CORPUSCULAR HEMOGLOBIN (BEAKER) (test 32.9 pg 25.7-32.2 nzoa=662) MEAN CORPUSCULAR HEMOGLOBIN CONC (BEAKER) (test 32.7 GM/DL 32.3-36.5 cyjp=336) RED CELL DISTRIBUTION WIDTH (BEAKER) (test 14.9 % 11.6-14.4 xikc=280) PLATELET COUNT (BEAKER) (test liji=555) 117 K/CU MM 150-450 MEAN PLATELET VOLUME (BEAKER) (test jgkb=031) 9.5 fL 9.4-12.4 NUCLEATED RED BLOOD CELLS (BEAKER) (test 0 /100 WBC 0-0 yuzc=159) [id number] 20:40:00 Test Item Value Reference Range Comments PARTIAL THROMBOPLASTIN TIME (BEAKER) (test 81.7 seconds 22.5-36.0 gxmf=564) [id number] 14:05:00 Test Item Value Reference Range Comments PARTIAL THROMBOPLASTIN TIME (BEAKER) (test 91.5 seconds 22.5-36.0 tffm=609) BASIC METABOLIC [id number] 07:02:00 Test Item Value Reference Range Comments SODIUM (BEAKER) (test 130 meq/L 136-145 yfhs=979) POTASSIUM (BEAKER) (test 4.3 meq/L 3.5-5.1 worq=292) CHLORIDE (BEAKER) (test 97 meq/L 98-107 qyfv=633) CO2 (BEAKER) (test 19 meq/L 22-29 vaxj=165) BLOOD UREA NITROGEN 52 mg/dL 7-21 (BEAKER) (test jtiw=670) CREATININE (BEAKER) (test 8.62 mg/dL 0.57-1.25 wnek=084) GLUCOSE RANDOM (BEAKER) 75 mg/dL 70-105 (test moli=503) CALCIUM (BEAKER) (test 9.3 mg/dL 8.4-10.2 hdev=454) EGFR (BEAKER) (test 8 mL/min/1.73 sq m ESTIMATED GFR IS NOT ovza=3414) ACCURATE CREATININE CLEARANCE IN PREDICTING GLOMERULAR FILTRATION RATE. ESTIMATED GFR IS NOT APPLICABLE FOR DIALYSIS PATIENTS. PT/[id number] 06:47:00 Test Item Value Reference Range Comments PROTIME (BEAKER) (test lsph=326) 19.8 seconds 11.7-14.7 INR (BEAKER) (test fjrb=526) 1.7 <=5.9 PARTIAL THROMBOPLASTIN TIME (BEAKER) (test 44.1 seconds 22.5-36.0 mpxo=311) RECOMMENDED COUMADIN/WARFARIN INR THERAPY RANGESSTANDARD DOSE: 2.0 - 3.0 Includes: PROPHYLAXIS forvenous thrombosis, systemic embolization; TREATMENT for venous thrombosis and/or pulmonary embolus.HIGH RISK: Target INR is 2.5-3.5 for patients with mechanical heart valves.Ok to add onOk to add onPROTHROMBIN TIME/[id number] 06:46:00 Test Item Value Reference Range Comments PROTIME (BEAKER) (test fkeb=160) 19.8 seconds 11.7-14.7 INR (BEAKER) (test mmds=869) 1.7 <=5.9 RECOMMENDED COUMADIN/WARFARIN INR THERAPY RANGESSTANDARD DOSE: 2.0 - 3.0 Includes: PROPHYLAXIS forvenous thrombosis, systemic embolization; TREATMENT for venous thrombosis and/or pulmonary embolus.HIGH RISK: Target INR is 2.5-3.5 for patients with mechanical heart valves.CBC W/PLT COUNT & AUTO [id number] 06:38:00 Test Item Value Reference Range Comments WHITE BLOOD CELL COUNT (BEAKER) (test znol=587) 6.4 K/ L 3.5-10.5 RED BLOOD CELL COUNT (BEAKER) (test dagk=238) 3.40 M/ L 4.63-6.08 HEMOGLOBIN (BEAKER) (test fzbj=198) 11.2 GM/DL 13.7-17.5 HEMATOCRIT (BEAKER) (test gkbk=856) 33.8 % 40.1-51.0 MEAN CORPUSCULAR VOLUME (BEAKER) (test uejq=574) 99.4 fL 79.0-92.2 MEAN CORPUSCULAR HEMOGLOBIN (BEAKER) (test 32.9 pg 25.7-32.2 ubqa=426) MEAN CORPUSCULAR HEMOGLOBIN CONC (BEAKER) (test 33.1 GM/DL 32.3-36.5 crtw=677) RED CELL DISTRIBUTION WIDTH (BEAKER) (test 14.6 % 11.6-14.4 pchg=564) PLATELET COUNT (BEAKER) (test vnhn=951) 122 K/CU MM 150-450 MEAN PLATELET VOLUME (BEAKER) (test pjqn=362) 10.1 fL 9.4-12.4 NUCLEATED RED BLOOD CELLS (BEAKER) (test 0 /100 WBC 0-0 wlki=400) NEUTROPHILS RELATIVE PERCENT (BEAKER) (test 62 % clsg=165) LYMPHOCYTES RELATIVE PERCENT (BEAKER) (test 20 % ligs=118) MONOCYTES RELATIVE PERCENT (BEAKER) (test 15 % ohsd=965) EOSINOPHILS RELATIVE PERCENT (BEAKER) (test 3 % jzfu=917) BASOPHILS RELATIVE PERCENT (BEAKER) (test 1 % jqtj=919) NEUTROPHILS ABSOLUTE COUNT (BEAKER) (test 3.96 K/ L 1.78-5.38 cgfb=240) LYMPHOCYTES ABSOLUTE COUNT (BEAKER) (test 1.25 K/ L 1.32-3.57 ywzr=631) MONOCYTES ABSOLUTE COUNT (BEAKER) (test 0.93 K/ L 0.30-0.82 zvlm=388) EOSINOPHILS ABSOLUTE COUNT (BEAKER) (test 0.17 K/ L 0.04-0.54 hdqv=238) BASOPHILS ABSOLUTE COUNT (BEAKER) (test 0.04 K/ L 0.01-0.08 avma=909) IMMATURE GRANULOCYTES-RELATIVE PERCENT (BEAKER) 0 % 0-1 (test hmvj=5250) [id number] 16:22:00 Test Item Value Reference Range Comments PARTIAL THROMBOPLASTIN TIME (BEAKER) (test 76.1 seconds 22.5-36.0 spnq=354) BODY FLUID CULTURE + GRAM [id number] 09:10:00 Test Item Value Reference Range Comments CULTURE (BEAKER) (test ntdo=2919) No growth GRAM STAIN RESULT (BEAKER) (test <1+ WBCs jlfz=9176) GRAM STAIN RESULT (BEAKER) (test No organisms seen zwij=98146) CBC W/PLT COUNT & AUTO [id number] 07:23:00 Test Item Value Reference Range Comments WHITE BLOOD CELL COUNT (BEAKER) (test firz=940) 7.1 K/ L 3.5-10.5 RED BLOOD CELL COUNT (BEAKER) (test jrop=559) 3.54 M/ L 4.63-6.08 HEMOGLOBIN (BEAKER) (test etlw=383) 11.6 GM/DL 13.7-17.5 HEMATOCRIT (BEAKER) (test epqs=041) 35.6 % 40.1-51.0 MEAN CORPUSCULAR VOLUME (BEAKER) (test zmmk=194) 100.6 fL 79.0-92.2 MEAN CORPUSCULAR HEMOGLOBIN (BEAKER) (test 32.8 pg 25.7-32.2 nmwk=452) MEAN CORPUSCULAR HEMOGLOBIN CONC (BEAKER) (test 32.6 GM/DL 32.3-36.5 leqr=024) RED CELL DISTRIBUTION WIDTH (BEAKER) (test 14.7 % 11.6-14.4 bhbi=991) PLATELET COUNT (BEAKER) (test hqyh=357) 115 K/CU MM 150-450 MEAN PLATELET VOLUME (BEAKER) (test ziwo=177) 9.8 fL 9.4-12.4 NUCLEATED RED BLOOD CELLS (BEAKER) (test 0 /100 WBC 0-0 dmmx=404) NEUTROPHILS RELATIVE PERCENT (BEAKER) (test 66 % vbeg=601) LYMPHOCYTES RELATIVE PERCENT (BEAKER) (test 17 % wbii=627) MONOCYTES RELATIVE PERCENT (BEAKER) (test 14 % wijr=616) EOSINOPHILS RELATIVE PERCENT (BEAKER) (test 2 % yjyv=031) BASOPHILS RELATIVE PERCENT (BEAKER) (test 0 % sxgf=602) NEUTROPHILS ABSOLUTE COUNT (BEAKER) (test 4.67 K/ L 1.78-5.38 gsqb=645) LYMPHOCYTES ABSOLUTE COUNT (BEAKER) (test 1.23 K/ L 1.32-3.57 ksyi=418) MONOCYTES ABSOLUTE COUNT (BEAKER) (test 1.02 K/ L 0.30-0.82 tlwo=531) EOSINOPHILS ABSOLUTE COUNT (BEAKER) (test 0.14 K/ L 0.04-0.54 avif=810) BASOPHILS ABSOLUTE COUNT (BEAKER) (test 0.03 K/ L 0.01-0.08 fcld=494) IMMATURE GRANULOCYTES-RELATIVE PERCENT (BEAKER) 0 % 0-1 (test zvrn=4246) CBC (HEMOGRAM ONLY)2018-08-04 07:23:00 Test Item Value Reference Range Comments WHITE BLOOD CELL COUNT (BEAKER) (test ccpy=088) 7.1 K/ L 3.5-10.5 RED BLOOD CELL COUNT (BEAKER) (test dclk=637) 3.54 M/ L 4.63-6.08 HEMOGLOBIN (BEAKER) (test nqnt=907) 11.6 GM/DL 13.7-17.5 HEMATOCRIT (BEAKER) (test lckf=489) 35.6 % 40.1-51.0 MEAN CORPUSCULAR VOLUME (BEAKER) (test yaon=684) 100.6 fL 79.0-92.2 MEAN CORPUSCULAR HEMOGLOBIN (BEAKER) (test 32.8 pg 25.7-32.2 qafr=871) MEAN CORPUSCULAR HEMOGLOBIN CONC (BEAKER) (test 32.6 GM/DL 32.3-36.5 ihpv=153) RED CELL DISTRIBUTION WIDTH (BEAKER) (test 14.7 % 11.6-14.4 wnhk=749) PLATELET COUNT (BEAKER) (test qrxk=155) 115 K/CU MM 150-450 MEAN PLATELET VOLUME (BEAKER) (test dkoq=770) 9.8 fL 9.4-12.4 NUCLEATED RED BLOOD CELLS (BEAKER) (test 0 /100 WBC 0-0 bkpy=503) BASIC METABOLIC [id number] 07:05:00 Test Item Value Reference Range Comments SODIUM (BEAKER) (test 134 meq/L 136-145 exlv=065) POTASSIUM (BEAKER) (test 4.0 meq/L 3.5-5.1 znhx=358) CHLORIDE (BEAKER) (test 100 meq/L 98-107 ehbl=852) CO2 (BEAKER) (test 24 meq/L 22-29 wpoe=514) BLOOD UREA NITROGEN 38 mg/dL 7-21 (BEAKER) (test dpnv=006) CREATININE (BEAKER) (test 7.15 mg/dL 0.57-1.25 jjvd=454) GLUCOSE RANDOM (BEAKER) 92 mg/dL 70-105 (test vgyj=672) CALCIUM (BEAKER) (test 9.5 mg/dL 8.4-10.2 ewih=686) EGFR (BEAKER) (test 10 mL/min/1.73 sq m ESTIMATED GFR IS NOT chas=9137) ACCURATE CREATININE CLEARANCE IN PREDICTING GLOMERULAR FILTRATION RATE. ESTIMATED GFR IS NOT APPLICABLE FOR DIALYSIS PATIENTS. PT/[id number] 06:53:00 Test Item Value Reference Range Comments PROTIME (BEAKER) (test mekz=034) 17.5 seconds 11.7-14.7 INR (BEAKER) (test lvnt=376) 1.4 <=5.9 PARTIAL THROMBOPLASTIN TIME (BEAKER) (test 70.3 seconds 22.5-36.0 qfhd=543) RECOMMENDED COUMADIN/WARFARIN INR THERAPY RANGESSTANDARD DOSE: 2.0 - 3.0 Includes: PROPHYLAXIS forvenous thrombosis, systemic embolization; TREATMENT for venous thrombosis and/or pulmonary embolus.HIGH RISK: Target INR is 2.5-3.5 for patients with mechanical heart valves.Ok to add onOk to add [id number] 06:53:00 Test Item Value Reference Range Comments PARTIAL THROMBOPLASTIN TIME (BEAKER) (test 70.3 seconds 22.5-36.0 vlsu=884) PROTHROMBIN [id number] 06:52:00 Test Item Value Reference Range Comments PROTIME (BEAKER) (test nlnb=238) 17.5 seconds 11.7-14.7 INR (BEAKER) (test veox=248) 1.4 <=5.9 RECOMMENDED COUMADIN/WARFARIN INR THERAPY RANGESSTANDARD DOSE: 2.0 - 3.0 Includes: PROPHYLAXIS forvenous thrombosis, systemic embolization; TREATMENT for venous thrombosis and/or pulmonary embolus.HIGH RISK: Target INR is 2.5-3.5 for patients with mechanical heart valves.PROTHROMBIN [id number] 06:51: 00 Test Item Value Reference Range Comments PROTIME (BEAKER) (test mrad=186) 17.7 seconds 11.7-14.7 INR (BEAKER) (test tcih=432) 1.5 <=5.9 RECOMMENDED COUMADIN/WARFARIN INR THERAPY RANGESSTANDARD DOSE: 2.0 - 3.0 Includes: PROPHYLAXIS forvenous thrombosis, systemic embolization; TREATMENT for venous thrombosis and/or pulmonary embolus.HIGH RISK: Target INR is 2.5-3.5 for patients with mechanical heart valves.While on warfarin.[id number] 22:47 :00 Test Item Value Reference Range Comments PARTIAL THROMBOPLASTIN TIME (BEAKER) (test 73.6 seconds 22.5-36.0 sycc=635) [id number] 13:08:00 Test Item Value Reference Range Comments PARTIAL THROMBOPLASTIN TIME (BEAKER) (test 49.2 seconds 22.5-36.0 psxm=199) BASIC METABOLIC [id number] 06:56:00 Test Item Value Reference Range Comments SODIUM (BEAKER) (test 135 meq/L 136-145 pmuo=841) POTASSIUM (BEAKER) (test 4.2 meq/L 3.5-5.1 ltln=057) CHLORIDE (BEAKER) (test 101 meq/L 98-107 nxow=176) CO2 (BEAKER) (test 26 meq/L 22-29 kgyn=137) BLOOD UREA NITROGEN 21 mg/dL 7-21 (BEAKER) (test gyid=989) CREATININE (BEAKER) (test 5.04 mg/dL 0.57-1.25 szgc=061) GLUCOSE RANDOM (BEAKER) 92 mg/dL 70-105 (test zkbm=541) CALCIUM (BEAKER) (test 9.5 mg/dL 8.4-10.2 bqay=214) EGFR (BEAKER) (test 14 mL/min/1.73 sq m ESTIMATED GFR IS NOT fqpw=4059) ACCURATE CREATININE CLEARANCE IN PREDICTING GLOMERULAR FILTRATION RATE. ESTIMATED GFR IS NOT APPLICABLE FOR DIALYSIS PATIENTS. [id number] 06:56:00 Test Item Value Reference Range Comments PARTIAL THROMBOPLASTIN TIME (BEAKER) (test 67.5 seconds 22.5-36.0 zgwk=989) [id number] 06:45:00 Test Item Value Reference Range Comments PROTIME (BEAKER) (test deyl=285) 18.6 seconds 11.7-14.7 INR (BEAKER) (test gxqr=475) 1.6 <=5.9 PARTIAL THROMBOPLASTIN TIME (BEAKER) (test 62.0 seconds 22.5-36.0 sweb=434) RECOMMENDED COUMADIN/WARFARIN INR THERAPY RANGESSTANDARD DOSE: 2.0 - 3.0 Includes: PROPHYLAXIS forvenous thrombosis, systemic embolization; TREATMENT for venous thrombosis and/or pulmonary embolus.HIGH RISK: Target INR is 2.5-3.5 for patients with mechanical heart valves.Ok to add onOk to add onPROTHROMBIN [id number] 06:44:00 Test Item Value Reference Range Comments PROTIME (BEAKER) (test ntij=963) 18.6 seconds 11.7-14.7 INR (BEAKER) (test whqb=943) 1.6 <=5.9 RECOMMENDED COUMADIN/WARFARIN INR THERAPY RANGESSTANDARD DOSE: 2.0 - 3.0 Includes: PROPHYLAXIS forvenous thrombosis, systemic embolization; TREATMENT for venous thrombosis and/or pulmonary embolus.HIGH RISK: Target INR is 2.5-3.5 for patients with mechanical heart valves.CBC W/PLT COUNT & AUTO [id number] 06:28:00 Test Item Value Reference Range Comments WHITE BLOOD CELL COUNT (BEAKER) (test xpoh=565) 6.1 K/ L 3.5-10.5 RED BLOOD CELL COUNT (BEAKER) (test sdnz=409) 3.44 M/ L 4.63-6.08 HEMOGLOBIN (BEAKER) (test iysi=741) 11.4 GM/DL 13.7-17.5 HEMATOCRIT (BEAKER) (test czsl=886) 34.9 % 40.1-51.0 MEAN CORPUSCULAR VOLUME (BEAKER) (test fhxo=950) 101.5 fL 79.0-92.2 MEAN CORPUSCULAR HEMOGLOBIN (BEAKER) (test 33.1 pg 25.7-32.2 cioy=952) MEAN CORPUSCULAR HEMOGLOBIN CONC (BEAKER) (test 32.7 GM/DL 32.3-36.5 nkmo=475) RED CELL DISTRIBUTION WIDTH (BEAKER) (test 14.8 % 11.6-14.4 tsea=213) PLATELET COUNT (BEAKER) (test dfhp=336) 98 K/CU MM 150-450 MEAN PLATELET VOLUME (BEAKER) (test nwix=960) 9.6 fL 9.4-12.4 NUCLEATED RED BLOOD CELLS (BEAKER) (test 0 /100 WBC 0-0 shap=937) NEUTROPHILS RELATIVE PERCENT (BEAKER) (test 66 % elkq=945) LYMPHOCYTES RELATIVE PERCENT (BEAKER) (test 17 % tfuh=431) MONOCYTES RELATIVE PERCENT (BEAKER) (test 15 % hvfn=950) EOSINOPHILS RELATIVE PERCENT (BEAKER) (test 2 % gvbf=042) BASOPHILS RELATIVE PERCENT (BEAKER) (test 1 % ipaz=091) NEUTROPHILS ABSOLUTE COUNT (BEAKER) (test 3.99 K/ L 1.78-5.38 xnnc=244) LYMPHOCYTES ABSOLUTE COUNT (BEAKER) (test 1.02 K/ L 1.32-3.57 teot=396) MONOCYTES ABSOLUTE COUNT (BEAKER) (test matf=331) 0.89 K/ L 0.30-0.82 EOSINOPHILS ABSOLUTE COUNT (BEAKER) (test 0.12 K/ L 0.04-0.54 qhpe=114) BASOPHILS ABSOLUTE COUNT (BEAKER) (test qhqx=508) 0.03 K/ L 0.01-0.08 IMMATURE GRANULOCYTES-RELATIVE PERCENT (BEAKER) 0 % 0-1 (test fjnd=8980) CBC (HEMOGRAM ONLY)2018-08-03 06:28:00 Test Item Value Reference Range Comments WHITE BLOOD CELL COUNT (BEAKER) (test duje=163) 6.1 K/ L 3.5-10.5 RED BLOOD CELL COUNT (BEAKER) (test joop=878) 3.44 M/ L 4.63-6.08 HEMOGLOBIN (BEAKER) (test anwk=316) 11.4 GM/DL 13.7-17.5 HEMATOCRIT (BEAKER) (test pgkt=672) 34.9 % 40.1-51.0 MEAN CORPUSCULAR VOLUME (BEAKER) (test jkfh=096) 101.5 fL 79.0-92.2 MEAN CORPUSCULAR HEMOGLOBIN (BEAKER) (test 33.1 pg 25.7-32.2 zyga=236) MEAN CORPUSCULAR HEMOGLOBIN CONC (BEAKER) (test 32.7 GM/DL 32.3-36.5 hdlg=563) RED CELL DISTRIBUTION WIDTH (BEAKER) (test 14.8 % 11.6-14.4 iccv=146) PLATELET COUNT (BEAKER) (test wakz=317) 98 K/CU MM 150-450 MEAN PLATELET VOLUME (BEAKER) (test boys=956) 9.6 fL 9.4-12.4 NUCLEATED RED BLOOD CELLS (BEAKER) (test 0 /100 WBC 0-0 tbsz=515) [id number] 02:18:00 Test Item Value Reference Range Comments PARTIAL THROMBOPLASTIN TIME (BEAKER) (test 67.1 seconds 22.5-36.0 ooeo=260) [id number] 18:56:00 Test Item Value Reference Range Comments PARTIAL THROMBOPLASTIN TIME (BEAKER) (test 72.5 seconds 22.5-36.0 shke=106) POCT-GLUCOSE [id number] 13:08:00 Test Item Value Reference Range Comments POC-GLUCOSE METER (BEAKER) 121 mg/dL 70-110 TESTED AT [facility] [address] (test mweu=5124) [place] [address] [id number] 12:07:00 Test Item Value Reference Range Comments PARTIAL THROMBOPLASTIN TIME (BEAKER) (test 50.7 seconds 22.5-36.0 mhlp=261) Ok to add onPROTHROMBIN TIME/[id number] 12:05:00 Test Item Value Reference Range Comments PROTIME (BEAKER) (test gjal=704) 16.7 seconds 11.7-14.7 INR (BEAKER) (test oiou=427) 1.4 <=5.9 RECOMMENDED COUMADIN/WARFARIN INR THERAPY RANGESSTANDARD DOSE: 2.0 - 3.0 Includes: PROPHYLAXIS forvenous thrombosis, systemic embolization; TREATMENT for venous thrombosis and/or pulmonary embolus.HIGH RISK: Target INR is 2.5-3.5 for patients with mechanical heart valves.Ok to add onCBC (HEMOGRAM ONLY)2018-08 11:55:00 Test Item Value Reference Range Comments WHITE BLOOD CELL COUNT (BEAKER) (test dtpk=331) 5.4 K/ L 3.5-10.5 RED BLOOD CELL COUNT (BEAKER) (test godq=832) 3.35 M/ L 4.63-6.08 HEMOGLOBIN (BEAKER) (test btri=202) 11.1 GM/DL 13.7-17.5 HEMATOCRIT (BEAKER) (test ujcq=863) 34.1 % 40.1-51.0 MEAN CORPUSCULAR VOLUME (BEAKER) (test mwbw=764) 101.8 fL 79.0-92.2 MEAN CORPUSCULAR HEMOGLOBIN (BEAKER) (test 33.1 pg 25.7-32.2 hoef=251) MEAN CORPUSCULAR HEMOGLOBIN CONC (BEAKER) (test 32.6 GM/DL 32.3-36.5 smdq=644) RED CELL DISTRIBUTION WIDTH (BEAKER) (test 14.8 % 11.6-14.4 ljdq=508) PLATELET COUNT (BEAKER) (test sjct=400) 115 K/CU MM 150-450 MEAN PLATELET VOLUME (BEAKER) (test qjqk=928) 9.3 fL 9.4-12.4 NUCLEATED RED BLOOD CELLS (BEAKER) (test 0 /100 WBC 0-0 xbki=794) RAD, CHEST, 1 VIEW, NON [id number] 11:24:00Reason for exam:->pleural effusionShould this be performed at the bedside?->YesFINAL REPORT AP chest HISTORY: Pleural effusion COMPARISON: 08/01/2018 IMPRESSION:Intact skeleton. Cardiomegaly. Moderate interstitial edema. Moderate right and small left effusions. No pneumothorax. Signed: Mandy Chairez MDReport Verified Date/Time: 08/02/2018 11:24:33 Reading Location: [facility] C0[facility] Ortho Consult Reading Room BASIC METABOLIC [id number] 02:55:00 Test Item Value Reference Range Comments SODIUM (BEAKER) (test 134 meq/L 136-145 rgev=968) POTASSIUM (BEAKER) (test 4.5 meq/L 3.5-5.1 vfpn=336) CHLORIDE (BEAKER) (test 99 meq/L 98-107 wqaq=048) CO2 (BEAKER) (test 23 meq/L 22-29 abqa=734) BLOOD UREA NITROGEN 38 mg/dL 7-21 (BEAKER) (test pvrq=688) CREATININE (BEAKER) (test 6.61 mg/dL 0.57-1.25 cqeq=728) GLUCOSE RANDOM (BEAKER) 86 mg/dL 70-105 (test ruxw=150) CALCIUM (BEAKER) (test 9.2 mg/dL 8.4-10.2 kmyz=154) EGFR (BEAKER) (test 10 mL/min/1.73 sq m ESTIMATED GFR IS NOT imzv=2766) ACCURATE CREATININE CLEARANCE IN PREDICTING GLOMERULAR FILTRATION RATE. ESTIMATED GFR IS NOT APPLICABLE FOR DIALYSIS PATIENTS. [id number] 02:39:00 Test Item Value Reference Range Comments PARTIAL THROMBOPLASTIN TIME (BEAKER) (test 51.6 seconds 22.5-36.0 dusy=823) CBC W/PLT COUNT & AUTO [id number] 02:30:00 Test Item Value Reference Range Comments WHITE BLOOD CELL COUNT (BEAKER) (test bjov=254) 5.6 K/ L 3.5-10.5 RED BLOOD CELL COUNT (BEAKER) (test drcb=102) 3.49 M/ L 4.63-6.08 HEMOGLOBIN (BEAKER) (test eskd=919) 11.5 GM/DL 13.7-17.5 HEMATOCRIT (BEAKER) (test kudp=153) 35.1 % 40.1-51.0 MEAN CORPUSCULAR VOLUME (BEAKER) (test kybh=550) 100.6 fL 79.0-92.2 MEAN CORPUSCULAR HEMOGLOBIN (BEAKER) (test 33.0 pg 25.7-32.2 ekzy=910) MEAN CORPUSCULAR HEMOGLOBIN CONC (BEAKER) (test 32.8 GM/DL 32.3-36.5 vjto=531) RED CELL DISTRIBUTION WIDTH (BEAKER) (test 14.9 % 11.6-14.4 uvag=363) PLATELET COUNT (BEAKER) (test ibje=345) 117 K/CU MM 150-450 MEAN PLATELET VOLUME (BEAKER) (test ulob=785) 9.8 fL 9.4-12.4 NUCLEATED RED BLOOD CELLS (BEAKER) (test 0 /100 WBC 0-0 rtrc=605) NEUTROPHILS RELATIVE PERCENT (BEAKER) (test 64 % qfnx=962) LYMPHOCYTES RELATIVE PERCENT (BEAKER) (test 18 % diuk=159) MONOCYTES RELATIVE PERCENT (BEAKER) (test 15 % ppan=039) EOSINOPHILS RELATIVE PERCENT (BEAKER) (test 2 % jkys=901) BASOPHILS RELATIVE PERCENT (BEAKER) (test 1 % spqw=944) NEUTROPHILS ABSOLUTE COUNT (BEAKER) (test 3.59 K/ L 1.78-5.38 fhpv=803) LYMPHOCYTES ABSOLUTE COUNT (BEAKER) (test 1.02 K/ L 1.32-3.57 zfmt=218) MONOCYTES ABSOLUTE COUNT (BEAKER) (test 0.84 K/ L 0.30-0.82 enpr=125) EOSINOPHILS ABSOLUTE COUNT (BEAKER) (test 0.13 K/ L 0.04-0.54 qybr=089) BASOPHILS ABSOLUTE COUNT (BEAKER) (test 0.04 K/ L 0.01-0.08 cenc=461) IMMATURE GRANULOCYTES-RELATIVE PERCENT (BEAKER) 0 % 0-1 (test shba=0135) BODY FLUID CELL COUNT WITH [id number] 21:13:00 Test Item Value Reference Range Comments APPEARANCE FLUID (BEAKER) (test rxaw=096) Bloody Clear COLOR FLUID (BEAKER) (test pghx=882) Sunil Colorless, Straw RBC FLUID (BEAKER) (test sttc=813) 50[address] /cu mm <=1 ADJUSTED WBC FLUID (BEAKER) (test eefe=3337) 462 /cu mm <=5 LINING CELLS (BEAKER) (test vfwd=6465) 0 /cu mm <=1 NEUTROPHILS FLUID (BEAKER) (test hzhx=7959) 1 % LYMPHS FLUID (BEAKER) (test luxf=148) 32 % MONO/MACROPHAGE FLUID (BEAKER) (test wbkk=533) 67 % EOSINOPHILS FLUID (BEAKER) (test oiyo=632) 0 % BASO FLUID (BEAKER) (test sbqu=727) 0 % CONTAINER BODY FLUID (BEAKER) (test inet=3803) EDTA Tube ALBUMIN, BODY [id number] 20:00:00 Test Item Value Reference Range Comments ALBUMIN FLUID (BEAKER) (test cadk=158) 2.1 gm/dL Reference Range: No Normals Assay performance has not been validated for this type of specimen.LACTATE DEHYDROGENASE (LDH), BODY [id number] 20:00:00 Test Item Value Reference Range Comments LACTATE DEHYDROGENASE FLUID (BEAKER) (test qdgv=743) 216 U/L Absence of reference range indicates that normals have not been defined.Assay performance has not been validated for this type of specimen.PROTEIN, BODY [id number] 20:00:00 Test Item Value Reference Range Comments PROTEIN FLUID (BEAKER) (test jhac=203) 4.6 g/dL Absence of reference range indicates that normals have not been defined.Assay performance has not been validated for this type of specimen.GLUCOSE, BODY [id number] 20:00:00 Test Item Value Reference Range Comments GLUCOSE, BODY FLUID (BEAKER) (test qpuz=4319) 103 mg/dL Absence of reference range indicates that normals have not been defined.Assay performance has not been validated for this type of specimen.RAD, CHEST, PA OR AP, 1 [id number] 17:08:00Ultrasound Room 1Reason for exam:->s/p Right sided ThoracentesisFINAL REPORT TECHNIQUE: Frontal chest radiograph dated 08/01/2018. CLINICAL HISTORY: S/P Right sided thora COMPARISON STUDY: Chest radiograph performed earlier the same day. IMPRESSION: Right-sided pleural effusion has decreased in size. No pneumothorax. Cardiomediastinal silhouette is stable in size. No pulmonary edema. Midline sternotomy wires are intact and well aligned. Degenerative changes are seen in the spine. Signed: Alonso Vail MDReport Verified Date/Time: 08/01/2018 17:08:13 Reading Location: [facility] Radiology Reading Room U/S, [id number] 17:03:00Laterality?->RightReason for exam:->large pleural effusionFINAL REPORT HISTORY: Right pleural effusion Following informed written consent, the patient's right posterior chest wall was prepped and draped in the usual sterile manner. 2% lidocaine was given locally for anesthesia. No conscious sedation was administered. Vital signs were monitored and remained stable. Using ultrasound guidance and a 5 [place] angiocatheter, access was gained to the right posterior pleural space. Approximately 1200 cc of dark sunil fluid was aspirated from the pleural space using a Vacutainer devices. Small samples of the fluid were submitted for the requested studies. At the conclusion of the procedure, the angiocatheter was removed. Overall, the patient tolerated the procedure well without immediate complications and was discharged from the department in stable condition. FINDINGS: Limited sonographic examination of the chest prior to the procedure demonstrates a moderate to large right pleural fluid collection. IMPRESSION: 1. Successful uncomplicated ultrasound guided right thoracentesis. Approximately 1200 cc of dark sunil fluid was removed, as described above. Signed: Rhea Seymour MDRjerryort Verified Date/Time: 08/01/2018 17:03:15 Reading Location: [address] Ultrasound Reading Room RAD, CHEST, 1 VIEW, NON [id number] 12:40: 00Reason for exam:->pleural effusion; shortness of breathShould this be performed at the bedside?->YesFINAL REPORT RAD, CHEST , 1 VIEW, NON DEPT INDICATION: pleural effusion; shortness of breath COMPARISON : July 30, 2018 FINDINGS: Portable frontal view of the chest. IMPRESSION: Support Lines: None. Lungs and pleura: Worsening congestive changes and airspace disease in the right base. Grossly stable volume of right effusion. Left lung is clear. No pneumothorax.Heart and mediastinum: Stable contours. Stable surgical changes.Additional findings: None. Signed: JR Platt Robert MDReport Verified Date/Time: 08/01/2018 12:40:42 Reading Location: [facility] Radiology Reading Room [id number] 11:33:00 Test Item Value Reference Range Comments PARTIAL THROMBOPLASTIN TIME (BEAKER) (test 118.1 seconds 22.5-36.0 gbcb=312) BASIC METABOLIC [id number] 02:07:00 Test Item Value Reference Range Comments SODIUM (BEAKER) (test 137 meq/L 136-145 vdux=527) POTASSIUM (BEAKER) (test 4.4 meq/L 3.5-5.1 Specimen slightly pczj=521) hemolyzed CHLORIDE (BEAKER) (test 100 meq/L 98-107 dubz=254) CO2 (BEAKER) (test 27 meq/L 22-29 xtjl=879) BLOOD UREA NITROGEN 26 mg/dL 7-21 (BEAKER) (test vvxx=539) CREATININE (BEAKER) (test 4.73 mg/dL 0.57-1.25 Specimen slightly nskp=987) hemolyzed GLUCOSE RANDOM (BEAKER) 81 mg/dL 70-105 (test dokd=391) CALCIUM (BEAKER) (test 8.9 mg/dL 8.4-10.2 ozsr=832) EGFR (BEAKER) (test 15 mL/min/1.73 sq m ESTIMATED GFR IS NOT xdmx=4345) ACCURATE CREATININE CLEARANCE IN PREDICTING GLOMERULAR FILTRATION RATE. ESTIMATED GFR IS NOT APPLICABLE FOR DIALYSIS PATIENTS. [id number] 01:55:00 Test Item Value Reference Range Comments PROTIME (BEAKER) (test qzmz=719) 19.5 seconds 11.7-14.7 INR (BEAKER) (test rmor=002) 1.7 <=5.9 PARTIAL THROMBOPLASTIN TIME (BEAKER) (test 96.8 seconds 22.5-36.0 hrpg=224) RECOMMENDED COUMADIN/WARFARIN INR THERAPY RANGESSTANDARD DOSE: 2.0 - 3.0 Includes: PROPHYLAXIS forvenous thrombosis, systemic embolization; TREATMENT for venous thrombosis and/or pulmonary embolus.HIGH RISK: Target INR is 2.5-3.5 for patients with mechanical heart valves.[id number] 01:55:00 Test Item Value Reference Range Comments PARTIAL THROMBOPLASTIN TIME (BEAKER) (test 96.8 seconds 22.5-36.0 tvta=396) CBC W/PLT COUNT & AUTO [id number] 01:38:00 Test Item Value Reference Range Comments WHITE BLOOD CELL COUNT (BEAKER) (test rexs=092) 5.5 K/ L 3.5-10.5 RED BLOOD CELL COUNT (BEAKER) (test qaxe=592) 3.37 M/ L 4.63-6.08 HEMOGLOBIN (BEAKER) (test bnlf=453) 11.2 GM/DL 13.7-17.5 HEMATOCRIT (BEAKER) (test rmej=272) 33.6 % 40.1-51.0 MEAN CORPUSCULAR VOLUME (BEAKER) (test zgpf=505) 99.7 fL 79.0-92.2 MEAN CORPUSCULAR HEMOGLOBIN (BEAKER) (test 33.2 pg 25.7-32.2 ihmn=598) MEAN CORPUSCULAR HEMOGLOBIN CONC (BEAKER) (test 33.3 GM/DL 32.3-36.5 ogot=901) RED CELL DISTRIBUTION WIDTH (BEAKER) (test 14.7 % 11.6-14.4 bgbq=143) PLATELET COUNT (BEAKER) (test xgch=758) 113 K/CU MM 150-450 MEAN PLATELET VOLUME (BEAKER) (test cisv=971) 9.8 fL 9.4-12.4 NUCLEATED RED BLOOD CELLS (BEAKER) (test 0 /100 WBC 0-0 qcka=581) NEUTROPHILS RELATIVE PERCENT (BEAKER) (test 64 % pbss=824) LYMPHOCYTES RELATIVE PERCENT (BEAKER) (test 18 % list=050) MONOCYTES RELATIVE PERCENT (BEAKER) (test 15 % mowi=803) EOSINOPHILS RELATIVE PERCENT (BEAKER) (test 2 % lpfi=737) BASOPHILS RELATIVE PERCENT (BEAKER) (test 1 % ptot=884) NEUTROPHILS ABSOLUTE COUNT (BEAKER) (test 3.50 K/ L 1.78-5.38 fmdp=748) LYMPHOCYTES ABSOLUTE COUNT (BEAKER) (test 0.97 K/ L 1.32-3.57 pnso=457) MONOCYTES ABSOLUTE COUNT (BEAKER) (test 0.82 K/ L 0.30-0.82 zmev=815) EOSINOPHILS ABSOLUTE COUNT (BEAKER) (test 0.11 K/ L 0.04-0.54 dakv=150) BASOPHILS ABSOLUTE COUNT (BEAKER) (test 0.04 K/ L 0.01-0.08 zqls=177) IMMATURE GRANULOCYTES-RELATIVE PERCENT (BEAKER) 0 % 0-1 (test rqin=9670) [id number] 18:58:00 Test Item Value Reference Range Comments PARTIAL THROMBOPLASTIN TIME (BEAKER) (test 61.7 seconds 22.5-36.0 iboc=604) [id number] 09:22:00 Test Item Value Reference Range Comments PARTIAL THROMBOPLASTIN TIME (BEAKER) (test 61.5 seconds 22.5-36.0 hzyb=486) BASIC METABOLIC [id number] 02:14:00 Test Item Value Reference Range Comments SODIUM (BEAKER) (test 130 meq/L 136-145 qizs=010) POTASSIUM (BEAKER) (test 4.1 meq/L 3.5-5.1 mrwe=265) CHLORIDE (BEAKER) (test 93 meq/L 98-107 wqnh=088) CO2 (BEAKER) (test 24 meq/L 22-29 ozyj=457) BLOOD UREA NITROGEN 39 mg/dL 7-21 (BEAKER) (test qmsr=321) CREATININE (BEAKER) (test 6.56 mg/dL 0.57-1.25 majg=152) GLUCOSE RANDOM (BEAKER) 84 mg/dL 70-105 (test kvvw=811) CALCIUM (BEAKER) (test 8.5 mg/dL 8.4-10.2 cguc=863) EGFR (BEAKER) (test 11 mL/min/1.73 sq m ESTIMATED GFR IS NOT denw=9346) ACCURATE CREATININE CLEARANCE IN PREDICTING GLOMERULAR FILTRATION RATE. ESTIMATED GFR IS NOT APPLICABLE FOR DIALYSIS PATIENTS. [id number] 01:43:00 Test Item Value Reference Range Comments PROTIME (BEAKER) (test nlwx=580) 21.8 seconds 11.7-14.7 INR (BEAKER) (test kund=513) 1.9 <=5.9 PARTIAL THROMBOPLASTIN TIME (BEAKER) (test 62.7 seconds 22.5-36.0 qagv=059) RECOMMENDED COUMADIN/WARFARIN INR THERAPY RANGESSTANDARD DOSE: 2.0 - 3.0 Includes: PROPHYLAXIS forvenous thrombosis, systemic embolization; TREATMENT for venous thrombosis and/or pulmonary embolus.HIGH RISK: Target INR is 2.5-3.5 for patients with mechanical heart valves.[id number] 01:43:00 Test Item Value Reference Range Comments PARTIAL THROMBOPLASTIN TIME (BEAKER) (test 62.7 seconds 22.5-36.0 mqwq=966) CBC W/PLT COUNT & AUTO [id number] 01:32:00 Test Item Value Reference Range Comments WHITE BLOOD CELL COUNT (BEAKER) (test tzgm=448) 5.9 K/ L 3.5-10.5 RED BLOOD CELL COUNT (BEAKER) (test zuzs=654) 3.41 M/ L 4.63-6.08 HEMOGLOBIN (BEAKER) (test qomc=585) 11.1 GM/DL 13.7-17.5 HEMATOCRIT (BEAKER) (test rcak=560) 33.7 % 40.1-51.0 MEAN CORPUSCULAR VOLUME (BEAKER) (test wsbh=684) 98.8 fL 79.0-92.2 MEAN CORPUSCULAR HEMOGLOBIN (BEAKER) (test 32.6 pg 25.7-32.2 gqhq=718) MEAN CORPUSCULAR HEMOGLOBIN CONC (BEAKER) (test 32.9 GM/DL 32.3-36.5 bvyb=601) RED CELL DISTRIBUTION WIDTH (BEAKER) (test 14.7 % 11.6-14.4 dhpt=935) PLATELET COUNT (BEAKER) (test ijjy=166) 132 K/CU MM 150-450 MEAN PLATELET VOLUME (BEAKER) (test cfmg=269) 10.0 fL 9.4-12.4 NUCLEATED RED BLOOD CELLS (BEAKER) (test 0 /100 WBC 0-0 mlzw=158) NEUTROPHILS RELATIVE PERCENT (BEAKER) (test 64 % viuh=295) LYMPHOCYTES RELATIVE PERCENT (BEAKER) (test 19 % oilu=876) MONOCYTES RELATIVE PERCENT (BEAKER) (test 14 % heou=543) EOSINOPHILS RELATIVE PERCENT (BEAKER) (test 2 % gfso=697) BASOPHILS RELATIVE PERCENT (BEAKER) (test 1 % pavm=618) NEUTROPHILS ABSOLUTE COUNT (BEAKER) (test 3.80 K/ L 1.78-5.38 kcto=979) LYMPHOCYTES ABSOLUTE COUNT (BEAKER) (test 1.14 K/ L 1.32-3.57 zitg=943) MONOCYTES ABSOLUTE COUNT (BEAKER) (test 0.80 K/ L 0.30-0.82 fsuw=061) EOSINOPHILS ABSOLUTE COUNT (BEAKER) (test 0.13 K/ L 0.04-0.54 fkdn=957) BASOPHILS ABSOLUTE COUNT (BEAKER) (test 0.05 K/ L 0.01-0.08 ufbd=367) IMMATURE GRANULOCYTES-RELATIVE PERCENT (BEAKER) 0 % 0-1 (test iucf=5063) [id number] 18:38:00 Test Item Value Reference Range Comments PARTIAL THROMBOPLASTIN TIME (BEAKER) (test 38.9 seconds 22.5-36.0 yigg=925) Prior to initiating heparinPLATELET [id number] 18:17:00 Test Item Value Reference Range Comments PLATELET COUNT (BEAKER) (test oxlm=896) 115 K/CU MM 150-450 RAD, CHEST, 2 [id number] 18:05:00Reason for exam:->sob and pleural effusionFINAL REPORT Chest x-ray Clinical History: sob and pleural effusion Comparison: May 20, 2018 Views: 2 Chest x-ray:The cardiac and mediastinal silhouettes are prominent. There is no evidence of a pneumothorax. There is evidence of a moderate right pleural effusion. There is no evidence of overt cardiac failure. The visible regional skeleton is intact. There isevidence of a right lower lobe focal parenchymal opacity. Postprocedural changes are noted Impression: As compared to the prior study there is decreased pulmonary vascular congestion. There remains a right pleural effusion with likely compressive atelectasis in the right lower lung zone. A superimposed pneumonia cannot be excluded. Signed: Bonny Sykeseport Verified Date/Time: 07/30/2018 18:05:46Reading Location: [facility] B1 C013W Consult Reading Room 06: 05 PMBASI METABOLIC [id number] 05:26:00 Test Item Value Reference Range Comments SODIUM (BEAKER) (test 137 meq/L 136-145 kpcw=461) POTASSIUM (BEAKER) (test 3.9 meq/L 3.5-5.1 pjwo=586) CHLORIDE (BEAKER) (test 99 meq/L 98-107 cctj=358) CO2 (BEAKER) (test 29 meq/L 22-29 lnsu=007) BLOOD UREA NITROGEN 27 mg/dL 7-21 (BEAKER) (test dbvy=515) CREATININE (BEAKER) (test 5.10 mg/dL 0.57-1.25 hirp=600) GLUCOSE RANDOM (BEAKER) 81 mg/dL 70-105 (test hifn=661) CALCIUM (BEAKER) (test 8.7 mg/dL 8.4-10.2 udyv=957) EGFR (BEAKER) (test 14 mL/min/1.73 sq m ESTIMATED GFR IS NOT nejr=9083) ACCURATE CREATININE CLEARANCE IN PREDICTING GLOMERULAR FILTRATION RATE. ESTIMATED GFR IS NOT APPLICABLE FOR DIALYSIS PATIENTS. PT/[id number] 05:25:00 Test Item Value Reference Range Comments PROTIME (BEAKER) (test jjiw=792) 21.4 seconds 11.7-14.7 INR (BEAKER) (test wndk=408) 1.9 <=5.9 PARTIAL THROMBOPLASTIN TIME (BEAKER) (test 38.6 seconds 22.5-36.0 oabn=838) RECOMMENDED COUMADIN/WARFARIN INR THERAPY RANGESSTANDARD DOSE: 2.0 - 3.0 Includes: PROPHYLAXIS forvenous thrombosis, systemic embolization; TREATMENT for venous thrombosis and/or pulmonary embolus.HIGH RISK: Target INR is 2.5-3.5 for patients with mechanical heart valves.PROTHROMBIN [id number] 05:24: 00 Test Item Value Reference Range Comments PROTIME (BEAKER) (test osrd=058) 21.4 seconds 11.7-14.7 INR (BEAKER) (test cicg=616) 1.9 <=5.9 RECOMMENDED COUMADIN/WARFARIN INR THERAPY RANGESSTANDARD DOSE: 2.0 - 3.0 Includes: PROPHYLAXIS forvenous thrombosis, systemic embolization; TREATMENT for venous thrombosis and/or pulmonary embolus.HIGH RISK: Target INR is 2.5-3.5 for patients with mechanical heart valves.CBC W/PLT COUNT & AUTO [id number] 05:12:00 Test Item Value Reference Range Comments WHITE BLOOD CELL COUNT (BEAKER) (test zhzt=263) 4.4 K/ L 3.5-10.5 RED BLOOD CELL COUNT (BEAKER) (test ajcl=199) 3.39 M/ L 4.63-6.08 HEMOGLOBIN (BEAKER) (test dvxh=032) 10.9 GM/DL 13.7-17.5 HEMATOCRIT (BEAKER) (test esvg=307) 34.4 % 40.1-51.0 MEAN CORPUSCULAR VOLUME (BEAKER) (test rgrf=865) 101.5 fL 79.0-92.2 MEAN CORPUSCULAR HEMOGLOBIN (BEAKER) (test 32.2 pg 25.7-32.2 punk=131) MEAN CORPUSCULAR HEMOGLOBIN CONC (BEAKER) (test 31.7 GM/DL 32.3-36.5 lmfg=413) RED CELL DISTRIBUTION WIDTH (BEAKER) (test 15.1 % 11.6-14.4 vsjh=690) PLATELET COUNT (BEAKER) (test nfya=603) 98 K/CU MM 150-450 MEAN PLATELET VOLUME (BEAKER) (test nlnn=764) 8.8 fL 9.4-12.4 NUCLEATED RED BLOOD CELLS (BEAKER) (test 0 /100 WBC 0-0 tbsv=965) NEUTROPHILS RELATIVE PERCENT (BEAKER) (test 58 % goqf=641) LYMPHOCYTES RELATIVE PERCENT (BEAKER) (test 20 % zhsl=834) MONOCYTES RELATIVE PERCENT (BEAKER) (test 19 % xymf=624) EOSINOPHILS RELATIVE PERCENT (BEAKER) (test 2 % pvix=997) BASOPHILS RELATIVE PERCENT (BEAKER) (test 1 % vkla=158) NEUTROPHILS ABSOLUTE COUNT (BEAKER) (test 2.55 K/ L 1.78-5.38 lsjx=644) LYMPHOCYTES ABSOLUTE COUNT (BEAKER) (test 0.87 K/ L 1.32-3.57 wxpa=311) MONOCYTES ABSOLUTE COUNT (BEAKER) (test ogxc=766) 0.82 K/ L 0.30-0.82 EOSINOPHILS ABSOLUTE COUNT (BEAKER) (test 0.10 K/ L 0.04-0.54 pqcg=237) BASOPHILS ABSOLUTE COUNT (BEAKER) (test yhxj=779) 0.03 K/ L 0.01-0.08 IMMATURE GRANULOCYTES-RELATIVE PERCENT (BEAKER) 1 % 0-1 (test duvm=3711) HEPATITIS B SURFACE [id number] 12:09:00 Test Item Value Reference Range Comments HEPATITIS B SURFACE ANTIGEN (2) (BEAKER) (test Nonreactive Nonreactive akgg=0589) POCT-GLUCOSE [id number] 07:50:00 Test Item Value Reference Range Comments POC-GLUCOSE METER (BEAKER) 93 mg/dL 70-110 TESTED AT [address] (test ucvh=0027) [facility] [address] [id number] 04:59:00 Test Item Value Reference Range Comments PROTIME (BEAKER) (test xceg=108) 20.8 seconds 11.7-14.7 INR (BEAKER) (test cuqf=902) 1.8 <=5.9 PARTIAL THROMBOPLASTIN TIME (BEAKER) (test 46.4 seconds 22.5-36.0 vrjz=024) RECOMMENDED COUMADIN/WARFARIN INR THERAPY RANGESSTANDARD DOSE: 2.0 - 3.0 Includes: PROPHYLAXIS forvenous thrombosis, systemic embolization; TREATMENT for venous thrombosis and/or pulmonary embolus.HIGH RISK: Target INR is 2.5-3.5 for patients with mechanical heart valves.BASIC METABOLIC [id number] 04:59: 00 Test Item Value Reference Range Comments SODIUM (BEAKER) (test 137 meq/L 136-145 luiq=897) POTASSIUM (BEAKER) (test 3.4 meq/L 3.5-5.1 yxfp=844) CHLORIDE (BEAKER) (test 96 meq/L 98-107 mkhs=479) CO2 (BEAKER) (test 28 meq/L 22-29 xmuu=925) BLOOD UREA NITROGEN 44 mg/dL 7-21 (BEAKER) (test yfzc=974) CREATININE (BEAKER) (test 7.25 mg/dL 0.57-1.25 ofeb=120) GLUCOSE RANDOM (BEAKER) 98 mg/dL 70-105 (test mcgp=654) CALCIUM (BEAKER) (test 8.8 mg/dL 8.4-10.2 oxir=230) EGFR (BEAKER) (test 9 mL/min/1.73 sq m ESTIMATED GFR IS NOT kbmk=7153) ACCURATE CREATININE CLEARANCE IN PREDICTING GLOMERULAR FILTRATION RATE. ESTIMATED GFR IS NOT APPLICABLE FOR DIALYSIS PATIENTS. CBC W/PLT COUNT & AUTO [id number] 04:51:00 Test Item Value Reference Range Comments WHITE BLOOD CELL COUNT (BEAKER) (test obny=708) 5.1 K/ L 3.5-10.5 RED BLOOD CELL COUNT (BEAKER) (test pzov=430) 3.27 M/ L 4.63-6.08 HEMOGLOBIN (BEAKER) (test agcj=228) 10.6 GM/DL 13.7-17.5 HEMATOCRIT (BEAKER) (test jemd=740) 32.8 % 40.1-51.0 MEAN CORPUSCULAR VOLUME (BEAKER) (test enxc=794) 100.3 fL 79.0-92.2 MEAN CORPUSCULAR HEMOGLOBIN (BEAKER) (test 32.4 pg 25.7-32.2 xifo=750) MEAN CORPUSCULAR HEMOGLOBIN CONC (BEAKER) (test 32.3 GM/DL 32.3-36.5 bdho=888) RED CELL DISTRIBUTION WIDTH (BEAKER) (test 14.9 % 11.6-14.4 ddso=825) PLATELET COUNT (BEAKER) (test ttow=528) 108 K/CU MM 150-450 MEAN PLATELET VOLUME (BEAKER) (test jesc=400) 9.7 fL 9.4-12.4 NUCLEATED RED BLOOD CELLS (BEAKER) (test 0 /100 WBC 0-0 merj=282) NEUTROPHILS RELATIVE PERCENT (BEAKER) (test 56 % rcfe=151) LYMPHOCYTES RELATIVE PERCENT (BEAKER) (test 24 % qwtd=860) MONOCYTES RELATIVE PERCENT (BEAKER) (test 17 % hdvd=568) EOSINOPHILS RELATIVE PERCENT (BEAKER) (test 2 % twnh=527) BASOPHILS RELATIVE PERCENT (BEAKER) (test 1 % hefz=132) NEUTROPHILS ABSOLUTE COUNT (BEAKER) (test 2.86 K/ L 1.78-5.38 dlfc=151) LYMPHOCYTES ABSOLUTE COUNT (BEAKER) (test 1.21 K/ L 1.32-3.57 fhtr=833) MONOCYTES ABSOLUTE COUNT (BEAKER) (test 0.87 K/ L 0.30-0.82 bfaf=316) EOSINOPHILS ABSOLUTE COUNT (BEAKER) (test 0.12 K/ L 0.04-0.54 mlam=047) BASOPHILS ABSOLUTE COUNT (BEAKER) (test 0.05 K/ L 0.01-0.08 kitp=918) IMMATURE GRANULOCYTES-RELATIVE PERCENT (BEAKER) 0 % 0-1 (test oxdl=9311) AFB CULTURE + [id number] 16:13:00 Test Item Value Reference Range Comments CULTURE (BEAKER) (test No acid-fast bacilli isolated njoa=6098) in 42 days AFB SMEAR (BEAKER) (test No acid fast bacilli seen rroz=864) AFB CULTURE + [id number] 16:13:00 Test Item Value Reference Range Comments CULTURE (BEAKER) (test No acid-fast bacilli isolated ficr=9111) in 42 days AFB SMEAR (BEAKER) (test No acid fast bacilli seen dxdh=431) FUNGUS CULTURE + [id number] 07:13:00 Test Item Value Reference Range Comments CULTURE (BEAKER) (test No fungus isolated in 28 days irgh=6714) FUNGUS SMEAR (BEAKER) (test No fungi seen cexl=3546) FUNGUS CULTURE + [id number] 07:13:00 Test Item Value Reference Range Comments CULTURE (BEAKER) (test No fungus isolated in 28 days yodk=6481) FUNGUS SMEAR (BEAKER) (test No fungi seen mucm=7138) TISSUE [id number] 19:17:00Surgical Pathology Report Case: [id number] Authorizing Provider: Juliana Martinez MD Collected: 05/23/201825 Ordering Location: [facility] Received: 05/23/2018 0923 SERVICES Pathologist: Brigida Parks MD Specimen: SoftTissue, Other, LEFT GROIN - TISSUE BIOPSY SKIN AND SOFT TISSUE,GROIN,LEFT, BIOPSY: - ABSCESSES, GRANULOMAS AND CHRONIC INFLAMMATION - NEGATIVE FOR DYSPLASIA OR MALIGNANCY - AFB AND GMS STAINS ARE NEGATIVE (SEE COMMENT) Signing Pathologist Direct Phone Line: [phone] signed by Brigida Parks MD on 06/02/2018 at 7:17 PMCorrelation with culture studies is recommended.[id number] abscess groinLeft groin tissue biopsyReceived fresh labeled "soft tissue, other ", description "left groin tissue biopsy" are two dark-porter, wrinkled,hair- bearing strips of skin measuring 1.5 and 2.6 cm in length, 0.3 cm in diameter and excised to a depth of 0.3 cm.Sectioning reveals no discrete masses.The specimen is entirely submitted in cassettesA1. DB/ewPOCT-GLUCOSE [id number] 08:51:00 Test Item Value Reference Range Comments POC-GLUCOSE METER (BEAKER) 101 mg/dL 70-110 TESTED AT [facility] [address] (test otan=3923) [facility] [address] CBC W/PLT COUNT & AUTO [id number] 06:01:00 Test Item Value Reference Range Comments WHITE BLOOD CELL COUNT (BEAKER) (test ymof=708) 7.1 K/ L 3.5-10.5 RED BLOOD CELL COUNT (BEAKER) (test sczv=588) 3.50 M/ L 4.63-6.08 HEMOGLOBIN (BEAKER) (test vctv=603) 10.7 GM/DL 13.7-17.5 HEMATOCRIT (BEAKER) (test xdzu=608) 33.4 % 40.1-51.0 MEAN CORPUSCULAR VOLUME (BEAKER) (test qhgr=694) 95.4 fL 79.0-92.2 MEAN CORPUSCULAR HEMOGLOBIN (BEAKER) (test 30.6 pg 25.7-32.2 loek=213) MEAN CORPUSCULAR HEMOGLOBIN CONC (BEAKER) (test 32.0 GM/DL 32.3-36.5 gjeb=776) RED CELL DISTRIBUTION WIDTH (BEAKER) (test 17.5 % 11.6-14.4 hdga=089) PLATELET COUNT (BEAKER) (test mlgz=393) 159 K/CU MM 150-450 MEAN PLATELET VOLUME (BEAKER) (test czxp=839) 9.8 fL 9.4-12.4 NUCLEATED RED BLOOD CELLS (BEAKER) (test 1 /100 WBC 0-0 zonn=486) NEUTROPHILS RELATIVE PERCENT (BEAKER) (test 66 % oefl=877) LYMPHOCYTES RELATIVE PERCENT (BEAKER) (test 20 % acdv=652) MONOCYTES RELATIVE PERCENT (BEAKER) (test 11 % eisy=123) EOSINOPHILS RELATIVE PERCENT (BEAKER) (test 1 % jalc=794) BASOPHILS RELATIVE PERCENT (BEAKER) (test 1 % cope=328) NEUTROPHILS ABSOLUTE COUNT (BEAKER) (test 4.70 K/ L 1.78-5.38 wzyi=672) LYMPHOCYTES ABSOLUTE COUNT (BEAKER) (test 1.39 K/ L 1.32-3.57 reok=880) MONOCYTES ABSOLUTE COUNT (BEAKER) (test 0.78 K/ L 0.30-0.82 obwr=874) EOSINOPHILS ABSOLUTE COUNT (BEAKER) (test 0.10 K/ L 0.04-0.54 sfkf=107) BASOPHILS ABSOLUTE COUNT (BEAKER) (test 0.08 K/ L 0.01-0.08 btdz=692) IMMATURE GRANULOCYTES-RELATIVE PERCENT (BEAKER) 1 % 0-1 (test tetv=0607) PROTHROMBIN [id number] 05:51:00 Test Item Value Reference Range Comments PROTIME (BEAKER) (test npjm=236) 25.9 seconds 11.7-14.7 INR (BEAKER) (test vpys=779) 2.4 <=5.9 RECOMMENDED COUMADIN/WARFARIN INR THERAPY RANGESSTANDARD DOSE: 2.0 - 3.0 Includes: PROPHYLAXIS forvenous thrombosis, systemic embolization; TREATMENT for venous thrombosis and/or pulmonary embolus.HIGH RISK: Target INR is 2.5-3.5 for patients with mechanical heart valves.BASIC METABOLIC [id number] 05:46: 00 Test Item Value Reference Range Comments SODIUM (BEAKER) (test 134 meq/L 136-145 tkgl=365) POTASSIUM (BEAKER) (test 4.1 meq/L 3.5-5.1 nhjz=910) CHLORIDE (BEAKER) (test 98 meq/L 98-107 mnjy=123) CO2 (BEAKER) (test 27 meq/L 22-29 uufc=519) BLOOD UREA NITROGEN 28 mg/dL 7-21 (BEAKER) (test pxnl=949) CREATININE (BEAKER) (test 5.07 mg/dL 0.57-1.25 rbod=342) GLUCOSE RANDOM (BEAKER) 110 mg/dL 70-105 (test ivwf=281) CALCIUM (BEAKER) (test 9.0 mg/dL 8.4-10.2 mkob=347) EGFR (BEAKER) (test 14 mL/min/1.73 sq m ESTIMATED GFR IS NOT ohze=6853) ACCURATE CREATININE CLEARANCE IN PREDICTING GLOMERULAR FILTRATION RATE. ESTIMATED GFR IS NOT APPLICABLE FOR DIALYSIS PATIENTS. POCT-GLUCOSE [id number] 20:34:00 Test Item Value Reference Range Comments POC-GLUCOSE METER (BEAKER) 261 mg/dL 70-110 TESTED AT [address] (test kuhj=6725) [place] [id number] POCT-GLUCOSE [id number] 18:12:00 Test Item Value Reference Range Comments POC-GLUCOSE METER (BEAKER) 139 mg/dL 70-110 TESTED AT [address] (test oqzy=9870) [place] [id number] POCT-GLUCOSE [id number] 11:51:00 Test Item Value Reference Range Comments POC-GLUCOSE METER (BEAKER) 147 mg/dL 70-110 TESTED AT [address] (test nmmp=1693) [place] [id number] POCT-GLUCOSE [id number] 08:42:00 Test Item Value Reference Range Comments POC-GLUCOSE METER (BEAKER) 104 mg/dL 70-110 TESTED AT [address] (test jxef=5543) [place] [id number] CBC W/PLT COUNT & AUTO [id number] 06:56:00 Test Item Value Reference Range Comments WHITE BLOOD CELL COUNT (BEAKER) (test xdln=669) 8.0 K/ L 3.5-10.5 RED BLOOD CELL COUNT (BEAKER) (test pmdp=623) 3.40 M/ L 4.63-6.08 HEMOGLOBIN (BEAKER) (test oqxc=848) 10.2 GM/DL 13.7-17.5 HEMATOCRIT (BEAKER) (test juoc=208) 32.0 % 40.1-51.0 MEAN CORPUSCULAR VOLUME (BEAKER) (test lpkv=277) 94.1 fL 79.0-92.2 MEAN CORPUSCULAR HEMOGLOBIN (BEAKER) (test 30.0 pg 25.7-32.2 jfbm=842) MEAN CORPUSCULAR HEMOGLOBIN CONC (BEAKER) (test 31.9 GM/DL 32.3-36.5 pern=531) RED CELL DISTRIBUTION WIDTH (BEAKER) (test 17.1 % 11.6-14.4 cdau=649) PLATELET COUNT (BEAKER) (test shmi=449) 167 K/CU MM 150-450 MEAN PLATELET VOLUME (BEAKER) (test jjye=205) 9.3 fL 9.4-12.4 NUCLEATED RED BLOOD CELLS (BEAKER) (test 1 /100 WBC 0-0 qien=944) NEUTROPHILS RELATIVE PERCENT (BEAKER) (test 69 % ebzz=437) LYMPHOCYTES RELATIVE PERCENT (BEAKER) (test 17 % wsiv=006) MONOCYTES RELATIVE PERCENT (BEAKER) (test 11 % nbrp=913) EOSINOPHILS RELATIVE PERCENT (BEAKER) (test 2 % ggai=637) BASOPHILS RELATIVE PERCENT (BEAKER) (test 1 % pcna=564) NEUTROPHILS ABSOLUTE COUNT (BEAKER) (test 5.54 K/ L 1.78-5.38 syua=264) LYMPHOCYTES ABSOLUTE COUNT (BEAKER) (test 1.33 K/ L 1.32-3.57 ohfq=539) MONOCYTES ABSOLUTE COUNT (BEAKER) (test 0.87 K/ L 0.30-0.82 zrlb=952) EOSINOPHILS ABSOLUTE COUNT (BEAKER) (test 0.12 K/ L 0.04-0.54 oiac=669) BASOPHILS ABSOLUTE COUNT (BEAKER) (test 0.06 K/ L 0.01-0.08 tryf=966) IMMATURE GRANULOCYTES-RELATIVE PERCENT (BEAKER) 1 % 0-1 (test svrs=0952) BASIC METABOLIC [id number] 06:49:00 Test Item Value Reference Range Comments SODIUM (BEAKER) (test 130 meq/L 136-145 fozb=339) POTASSIUM (BEAKER) (test 4.3 meq/L 3.5-5.1 xuzb=709) CHLORIDE (BEAKER) (test 93 meq/L 98-107 pxki=319) CO2 (BEAKER) (test 25 meq/L 22-29 pipl=049) BLOOD UREA NITROGEN 41 mg/dL 7-21 (BEAKER) (test sgtt=731) CREATININE (BEAKER) (test 6.65 mg/dL 0.57-1.25 dklx=493) GLUCOSE RANDOM (BEAKER) 113 mg/dL 70-105 (test ilna=562) CALCIUM (BEAKER) (test 8.9 mg/dL 8.4-10.2 uxzi=853) EGFR (BEAKER) (test 10 mL/min/1.73 sq m ESTIMATED GFR IS NOT dhqr=1925) ACCURATE CREATININE CLEARANCE IN PREDICTING GLOMERULAR FILTRATION RATE. ESTIMATED GFR IS NOT APPLICABLE FOR DIALYSIS PATIENTS. PROTHROMBIN [id number] 06:46:00 Test Item Value Reference Range Comments PROTIME (BEAKER) (test qgff=007) 26.9 seconds 11.7-14.7 INR (BEAKER) (test aowr=818) 2.5 <=5.9 RECOMMENDED COUMADIN/WARFARIN INR THERAPY RANGESSTANDARD DOSE: 2.0 - 3.0 Includes: PROPHYLAXIS forvenous thrombosis, systemic embolization; TREATMENT for venous thrombosis and/or pulmonary embolus.HIGH RISK: Target INR is 2.5-3.5 for patients with mechanical heart valves.ANAEROBIC [id number] 00:38:00 Test Item Value Reference Range Comments CULTURE (BEAKER) (test kclx=3038) No anaerobes isolated ANAEROBIC [id number] 00:38:00 Test Item Value Reference Range Comments CULTURE (BEAKER) (test ijso=9853) No anaerobes isolated POCT-GLUCOSE [id number] 20:43:00 Test Item Value Reference Range Comments POC-GLUCOSE METER (BEAKER) 124 mg/dL 70-110 TESTED AT [address] (test sris=1574) [facility] [address] POCT-GLUCOSE [id number] 17:17:00 Test Item Value Reference Range Comments POC-GLUCOSE METER (BEAKER) 190 mg/dL 70-110 TESTED AT [address] (test ffsj=1515) [facility] [address] POCT-GLUCOSE [id number] 11:54:00 Test Item Value Reference Range Comments POC-GLUCOSE METER (BEAKER) 195 mg/dL 70-110 TESTED AT [address] (test dfuu=3360) [facility] [address] C. DIFFICILE GDH [id number] 11:16:00 Test Item Value Reference Range Comments CDT TOXIN (test Negative Negative pphe=[id number]) CDT GDH ANTIGEN (test Negative Negative No indication of Clostridium nwai=[id number]) difficile infection and no colonization. Discontinue enteric isolation and therapy. Testing performed by [employer] Rapid Cassette Assay. For GDH, published sensitivity of the assay is 98.7% compared to cytotoxicity testing. For Toxin AB, published sensitivity is 87.8% and specificity 99.4% compared to cytotoxicity testing.Verification of kit performance was done by the [facility] prior to clinical use.SURGICALLY OBTAINED CULTURE + GRAM [id number] 09:22:00 Test Item Value Reference Range Comments CULTURE (BEAKER) (test COAGULASE NEGATIVE <1+ Coagulase negative qbvi=1938) STAPHYLOCOCCUS Staphylococcus Clindamycin (test code=10) Erythromycin (test code=4) Linezolid (test code=40) Nitrofurantoin (test code=23) Oxacillin (test code=14) Rifampin (test code=43) Tetracycline (test code=2) Trimethoprim + Sulfamethoxazole (test code=47) Vancomycin (test code=13) GRAM STAIN RESULT 1+ WBCs (BEAKER) (test jmth=3591) GRAM STAIN RESULT No organisms seen (BEAKER) (test couc=310917) SURGICALLY OBTAINED CULTURE + GRAM [id number] 09:20:00 Test Item Value Reference Range Comments CULTURE (BEAKER) (test jnuz=9665) No growth GRAM STAIN RESULT (BEAKER) (test 4+ WBCs xfas=9196) GRAM STAIN RESULT (BEAKER) (test No organisms seen zhsv=96990) POCT-GLUCOSE [id number] 08:21:00 Test Item Value Reference Range Comments POC-GLUCOSE METER (BEAKER) 101 mg/dL 70-110 TESTED AT [facility] [address] [address] (test wsny=4302) [facility] [address] BASIC METABOLIC [id number] 07:57:00 Test Item Value Reference Range Comments SODIUM (BEAKER) (test 135 meq/L 136-145 mdye=574) POTASSIUM (BEAKER) (test 3.9 meq/L 3.5-5.1 bkfj=629) CHLORIDE (BEAKER) (test 96 meq/L 98-107 fvea=665) CO2 (BEAKER) (test 26 meq/L 22-29 reei=016) BLOOD UREA NITROGEN 29 mg/dL 7-21 (BEAKER) (test qtiy=645) CREATININE (BEAKER) (test 5.49 mg/dL 0.57-1.25 cjcd=262) GLUCOSE RANDOM (BEAKER) 100 mg/dL 70-105 (test xphz=377) CALCIUM (BEAKER) (test 9.1 mg/dL 8.4-10.2 mpzg=868) EGFR (BEAKER) (test 13 mL/min/1.73 sq m ESTIMATED GFR IS NOT djbn=9495) ACCURATE CREATININE CLEARANCE IN PREDICTING GLOMERULAR FILTRATION RATE. ESTIMATED GFR IS NOT APPLICABLE FOR DIALYSIS PATIENTS. PROTHROMBIN [id number] 06:36:00 Test Item Value Reference Range Comments PROTIME (BEAKER) (test cjdy=276) 25.3 seconds 11.7-14.7 INR (BEAKER) (test gapo=384) 2.3 <=5.9 RECOMMENDED COUMADIN/WARFARIN INR THERAPY RANGESSTANDARD DOSE: 2.0 - 3.0 Includes: PROPHYLAXIS forvenous thrombosis, systemic embolization; TREATMENT for venous thrombosis and/or pulmonary embolus.HIGH RISK: Target INR is 2.5-3.5 for patients with mechanical heart valves.CBC W/PLT COUNT & AUTO [id number] 06:27:00 Test Item Value Reference Range Comments WHITE BLOOD CELL COUNT (BEAKER) (test cgtr=212) 7.3 K/ L 3.5-10.5 RED BLOOD CELL COUNT (BEAKER) (test bjxu=871) 3.29 M/ L 4.63-6.08 HEMOGLOBIN (BEAKER) (test onfj=231) 9.8 GM/DL 13.7-17.5 HEMATOCRIT (BEAKER) (test aqch=140) 30.9 % 40.1-51.0 MEAN CORPUSCULAR VOLUME (BEAKER) (test gdrx=761) 93.9 fL 79.0-92.2 MEAN CORPUSCULAR HEMOGLOBIN (BEAKER) (test 29.8 pg 25.7-32.2 uwyk=851) MEAN CORPUSCULAR HEMOGLOBIN CONC (BEAKER) (test 31.7 GM/DL 32.3-36.5 ohfp=781) RED CELL DISTRIBUTION WIDTH (BEAKER) (test 16.9 % 11.6-14.4 unuk=010) PLATELET COUNT (BEAKER) (test ydyv=926) 153 K/CU MM 150-450 MEAN PLATELET VOLUME (BEAKER) (test xnff=637) 9.1 fL 9.4-12.4 NUCLEATED RED BLOOD CELLS (BEAKER) (test 0 /100 WBC 0-0 jqat=972) NEUTROPHILS RELATIVE PERCENT (BEAKER) (test 66 % vuff=942) LYMPHOCYTES RELATIVE PERCENT (BEAKER) (test 16 % szpn=539) MONOCYTES RELATIVE PERCENT (BEAKER) (test 15 % yexf=981) EOSINOPHILS RELATIVE PERCENT (BEAKER) (test 2 % hvtu=379) BASOPHILS RELATIVE PERCENT (BEAKER) (test 1 % bjrh=443) NEUTROPHILS ABSOLUTE COUNT (BEAKER) (test 4.75 K/ L 1.78-5.38 gzxn=775) LYMPHOCYTES ABSOLUTE COUNT (BEAKER) (test 1.14 K/ L 1.32-3.57 ftjj=799) MONOCYTES ABSOLUTE COUNT (BEAKER) (test 1.05 K/ L 0.30-0.82 espo=659) EOSINOPHILS ABSOLUTE COUNT (BEAKER) (test 0.13 K/ L 0.04-0.54 ryzp=491) BASOPHILS ABSOLUTE COUNT (BEAKER) (test 0.07 K/ L 0.01-0.08 qicy=075) IMMATURE GRANULOCYTES-RELATIVE PERCENT (BEAKER) 2 % 0-1 (test qwxh=1053) POCT-GLUCOSE [id number] 21:40:00 Test Item Value Reference Range Comments POC-GLUCOSE METER (BEAKER) 176 mg/dL 70-110 TESTED AT [address] (test nifl=0249) [place] [address] POCT-GLUCOSE [id number] 16:07:00 Test Item Value Reference Range Comments POC-GLUCOSE METER (BEAKER) 120 mg/dL 70-110 TESTED AT [address] (test ycoi=8422) [place] [address] POCT-GLUCOSE [id number] 08:31:00 Test Item Value Reference Range Comments POC-GLUCOSE METER (BEAKER) 119 mg/dL 70-110 TESTED AT [address] (test cupf=1944) [place] [address] BASIC METABOLIC [id number] 08:19:00 Test Item Value Reference Range Comments SODIUM (BEAKER) (test 133 meq/L 136-145 buya=303) POTASSIUM (BEAKER) (test 3.8 meq/L 3.5-5.1 thxx=632) CHLORIDE (BEAKER) (test 97 meq/L 98-107 ubcs=437) CO2 (BEAKER) (test 26 meq/L 22-29 wxmt=653) BLOOD UREA NITROGEN 19 mg/dL 7-21 (BEAKER) (test pnxa=831) CREATININE (BEAKER) (test 4.05 mg/dL 0.57-1.25 wjvh=722) GLUCOSE RANDOM (BEAKER) 107 mg/dL 70-105 (test ybst=396) CALCIUM (BEAKER) (test 9.0 mg/dL 8.4-10.2 wzqs=194) EGFR (BEAKER) (test 18 mL/min/1.73 sq m ESTIMATED GFR IS NOT bulh=6497) ACCURATE CREATININE CLEARANCE IN PREDICTING GLOMERULAR FILTRATION RATE. ESTIMATED GFR IS NOT APPLICABLE FOR DIALYSIS PATIENTS. VANCOMYCIN LEVEL, [id number] 08:16:00 Test Item Value Reference Range Comments VANCOMYCIN RANDOM (BEAKER) (test brfh=004) 17.6 ug/mL Reference Range: No NormalsPROTHROMBIN [id number] 07:21:00 Test Item Value Reference Range Comments PROTIME (BEAKER) (test rjdg=387) 22.0 seconds 11.7-14.7 INR (BEAKER) (test yaep=918) 1.9 <=5.9 RECOMMENDED COUMADIN/WARFARIN INR THERAPY RANGESSTANDARD DOSE: 2.0 - 3.0 Includes: PROPHYLAXIS forvenous thrombosis, systemic embolization; TREATMENT for venous thrombosis and/or pulmonary embolus.HIGH RISK: Target INR is 2.5-3.5 for patients with mechanical heart valves.CBC W/PLT COUNT & AUTO [id number] 07:02:00 Test Item Value Reference Range Comments WHITE BLOOD CELL COUNT (BEAKER) (test vrly=372) 8.2 K/ L 3.5-10.5 RED BLOOD CELL COUNT (BEAKER) (test evpq=935) 3.46 M/ L 4.63-6.08 HEMOGLOBIN (BEAKER) (test rpph=694) 10.4 GM/DL 13.7-17.5 HEMATOCRIT (BEAKER) (test pnji=899) 32.8 % 40.1-51.0 MEAN CORPUSCULAR VOLUME (BEAKER) (test baxo=247) 94.8 fL 79.0-92.2 MEAN CORPUSCULAR HEMOGLOBIN (BEAKER) (test 30.1 pg 25.7-32.2 quul=304) MEAN CORPUSCULAR HEMOGLOBIN CONC (BEAKER) (test 31.7 GM/DL 32.3-36.5 hrsu=051) RED CELL DISTRIBUTION WIDTH (BEAKER) (test 16.7 % 11.6-14.4 eqtt=041) PLATELET COUNT (BEAKER) (test zddl=007) 167 K/CU MM 150-450 MEAN PLATELET VOLUME (BEAKER) (test yetm=012) 9.7 fL 9.4-12.4 NUCLEATED RED BLOOD CELLS (BEAKER) (test 0 /100 WBC 0-0 rujx=416) NEUTROPHILS RELATIVE PERCENT (BEAKER) (test 69 % elpu=705) LYMPHOCYTES RELATIVE PERCENT (BEAKER) (test 13 % zffo=947) MONOCYTES RELATIVE PERCENT (BEAKER) (test 12 % ipvu=872) EOSINOPHILS RELATIVE PERCENT (BEAKER) (test 2 % pnqf=161) BASOPHILS RELATIVE PERCENT (BEAKER) (test 1 % ctuo=937) NEUTROPHILS ABSOLUTE COUNT (BEAKER) (test 5.72 K/ L 1.78-5.38 irfi=550) LYMPHOCYTES ABSOLUTE COUNT (BEAKER) (test 1.07 K/ L 1.32-3.57 yvow=248) MONOCYTES ABSOLUTE COUNT (BEAKER) (test 1.02 K/ L 0.30-0.82 uvsw=724) EOSINOPHILS ABSOLUTE COUNT (BEAKER) (test 0.18 K/ L 0.04-0.54 rpjq=410) BASOPHILS ABSOLUTE COUNT (BEAKER) (test 0.07 K/ L 0.01-0.08 yrik=405) IMMATURE GRANULOCYTES-RELATIVE PERCENT (BEAKER) 2 % 0-1 (test imma=3237) BLOOD [id number] 06:00:00 Test Item Value Reference Range Comments CULTURE (BEAKER) (test iwvd=2676) No growth in 5 days BLOOD [id number] 00:00:00 Test Item Value Reference Range Comments CULTURE (BEAKER) (test kwvg=2516) No growth in 5 days POCT-GLUCOSE [id number] 22:05:00 Test Item Value Reference Range Comments POC-GLUCOSE METER (BEAKER) 169 mg/dL 70-110 TESTED AT [address] (test ffpi=8364) [facility] [address] POCT-GLUCOSE [id number] 18:20:00 Test Item Value Reference Range Comments POC-GLUCOSE METER (BEAKER) 110 mg/dL 70-110 TESTED AT [address] (test jqnc=5696) [place] [id number] POCT-GLUCOSE [id number] 17:17:00 Test Item Value Reference Range Comments POC-GLUCOSE METER (BEAKER) 99 mg/dL 70-110 TESTED AT [address] (test bvqn=4094) [place] [address] SPIN/CONCENTRATION [id number] 14:49:00 Test Item Value Reference Range Comments CONCENTRATION CHARGED (BEAKER) (test vtxs=0757) Done SPIN/CONCENTRATION [id number] 14:49:00 Test Item Value Reference Range Comments CONCENTRATION CHARGED (BEAKER) (test dfzq=4423) Done POCT-GLUCOSE [id number] 12:13:00 Test Item Value Reference Range Comments POC-GLUCOSE METER (BEAKER) 188 mg/dL 70-110 TESTED AT [address] (test ukmn=0023) [place] [id number] BASIC METABOLIC [id number] 09:56:00 Test Item Value Reference Range Comments SODIUM (BEAKER) (test 132 meq/L 136-145 giiw=473) POTASSIUM (BEAKER) (test 4.1 meq/L 3.5-5.1 xuwf=528) CHLORIDE (BEAKER) (test 96 meq/L 98-107 kkxj=949) CO2 (BEAKER) (test 24 meq/L 22-29 sykj=336) BLOOD UREA NITROGEN 30 mg/dL 7-21 (BEAKER) (test sfjz=884) CREATININE (BEAKER) (test 5.66 mg/dL 0.57-1.25 kkqe=001) GLUCOSE RANDOM (BEAKER) 98 mg/dL 70-105 (test mbze=780) CALCIUM (BEAKER) (test 8.7 mg/dL 8.4-10.2 qakj=536) EGFR (BEAKER) (test 12 mL/min/1.73 sq m ESTIMATED GFR IS NOT wefa=8905) ACCURATE CREATININE CLEARANCE IN PREDICTING GLOMERULAR FILTRATION RATE. ESTIMATED GFR IS NOT APPLICABLE FOR DIALYSIS PATIENTS. POCT-GLUCOSE [id number] 07:45:00 Test Item Value Reference Range Comments POC-GLUCOSE METER (BEAKER) 108 mg/dL 70-110 TESTED AT [facility] [address] [facility] (test hfdi=7255) [facility] [address] CBC W/PLT COUNT & AUTO [id number] 07:00:00 Test Item Value Reference Range Comments WHITE BLOOD CELL COUNT (BEAKER) (test vrze=753) 11.1 K/ L 3.5-10.5 RED BLOOD CELL COUNT (BEAKER) (test jbsm=277) 3.30 M/ L 4.63-6.08 HEMOGLOBIN (BEAKER) (test gohf=754) 10.0 GM/DL 13.7-17.5 HEMATOCRIT (BEAKER) (test bztq=525) 31.4 % 40.1-51.0 MEAN CORPUSCULAR VOLUME (BEAKER) (test euka=516) 95.2 fL 79.0-92.2 MEAN CORPUSCULAR HEMOGLOBIN (BEAKER) (test 30.3 pg 25.7-32.2 vmgo=779) MEAN CORPUSCULAR HEMOGLOBIN CONC (BEAKER) (test 31.8 GM/DL 32.3-36.5 yagg=863) RED CELL DISTRIBUTION WIDTH (BEAKER) (test 16.3 % 11.6-14.4 ctrz=656) PLATELET COUNT (BEAKER) (test tlbq=790) 166 K/CU MM 150-450 MEAN PLATELET VOLUME (BEAKER) (test robn=767) 9.4 fL 9.4-12.4 NUCLEATED RED BLOOD CELLS (BEAKER) (test 0 /100 WBC 0-0 phji=670) NEUTROPHILS RELATIVE PERCENT (BEAKER) (test 72 % qkbw=223) LYMPHOCYTES RELATIVE PERCENT (BEAKER) (test 11 % wgro=506) MONOCYTES RELATIVE PERCENT (BEAKER) (test 12 % dxvd=647) EOSINOPHILS RELATIVE PERCENT (BEAKER) (test 2 % xbof=658) BASOPHILS RELATIVE PERCENT (BEAKER) (test 1 % aaxw=505) NEUTROPHILS ABSOLUTE COUNT (BEAKER) (test 7.96 K/ L 1.78-5.38 tndy=323) LYMPHOCYTES ABSOLUTE COUNT (BEAKER) (test 1.25 K/ L 1.32-3.57 jcqk=106) MONOCYTES ABSOLUTE COUNT (BEAKER) (test 1.27 K/ L 0.30-0.82 klaj=913) EOSINOPHILS ABSOLUTE COUNT (BEAKER) (test 0.23 K/ L 0.04-0.54 iczf=028) BASOPHILS ABSOLUTE COUNT (BEAKER) (test 0.07 K/ L 0.01-0.08 ebbk=174) IMMATURE GRANULOCYTES-RELATIVE PERCENT (BEAKER) 3 % 0-1 (test tnid=6328) PROTHROMBIN [id number] 06:47:00 Test Item Value Reference Range Comments PROTIME (BEAKER) (test kjqb=264) 20.7 seconds 11.7-14.7 INR (BEAKER) (test rlib=390) 1.8 <=5.9 RECOMMENDED COUMADIN/WARFARIN INR THERAPY RANGESSTANDARD DOSE: 2.0 - 3.0 Includes: PROPHYLAXIS forvenous thrombosis, systemic embolization; TREATMENT for venous thrombosis and/or pulmonary embolus.HIGH RISK: Target INR is 2.5-3.5 for patients with mechanical heart valves.POCT-GLUCOSE [id number] 20:42:00 Test Item Value Reference Range Comments POC-GLUCOSE METER (BEAKER) 134 mg/dL 70-110 TESTED AT [address] (test fner=9651) [place] [address] POCT-GLUCOSE [id number] 13:29:00 Test Item Value Reference Range Comments POC-GLUCOSE METER (BEAKER) 209 mg/dL 70-110 TESTED AT [address] (test ulql=5792) [place] [address] POCT-GLUCOSE [id number] 08:53:00 Test Item Value Reference Range Comments POC-GLUCOSE METER (BEAKER) 103 mg/dL 70-110 TESTED AT [address] (test nyrz=7211) [place] [address] BASIC METABOLIC [id number] 07:47:00 Test Item Value Reference Range Comments SODIUM (BEAKER) (test 136 meq/L 136-145 woce=584) POTASSIUM (BEAKER) (test 4.0 meq/L 3.5-5.1 tlcg=475) CHLORIDE (BEAKER) (test 100 meq/L 98-107 dtle=349) CO2 (BEAKER) (test 27 meq/L 22-29 fujf=778) BLOOD UREA NITROGEN 22 mg/dL 7-21 (BEAKER) (test bcfa=758) CREATININE (BEAKER) (test 4.63 mg/dL 0.57-1.25 fbtv=055) GLUCOSE RANDOM (BEAKER) 111 mg/dL 70-105 (test xudx=528) CALCIUM (BEAKER) (test 8.7 mg/dL 8.4-10.2 msda=018) EGFR (BEAKER) (test 16 mL/min/1.73 sq m ESTIMATED GFR IS NOT uiiw=3253) ACCURATE CREATININE CLEARANCE IN PREDICTING GLOMERULAR FILTRATION RATE. ESTIMATED GFR IS NOT APPLICABLE FOR DIALYSIS PATIENTS. WOUND CULTURE + GRAM [id number] 07:44:00 Test Item Value Reference Range Comments CULTURE (BEAKER) (test calb=1256) No growth GRAM STAIN RESULT (BEAKER) (test No WBCs duyc=8584) GRAM STAIN RESULT (BEAKER) (test No organisms seen iwhb=05844) [id number] 07:38:00 Test Item Value Reference Range Comments PHOSPHORUS (BEAKER) (test cnit=907) 3.2 mg/dL 2.3-4.7 CBC W/PLT COUNT & AUTO [id number] 06:35:00 Test Item Value Reference Range Comments WHITE BLOOD CELL COUNT (BEAKER) (test smvg=259) 11.0 K/ L 3.5-10.5 RED BLOOD CELL COUNT (BEAKER) (test trfq=502) 3.30 M/ L 4.63-6.08 HEMOGLOBIN (BEAKER) (test rwbj=614) 9.9 GM/DL 13.7-17.5 HEMATOCRIT (BEAKER) (test ghpi=351) 31.2 % 40.1-51.0 MEAN CORPUSCULAR VOLUME (BEAKER) (test pkyg=828) 94.5 fL 79.0-92.2 MEAN CORPUSCULAR HEMOGLOBIN (BEAKER) (test 30.0 pg 25.7-32.2 wesa=862) MEAN CORPUSCULAR HEMOGLOBIN CONC (BEAKER) (test 31.7 GM/DL 32.3-36.5 cstr=073) RED CELL DISTRIBUTION WIDTH (BEAKER) (test 16.1 % 11.6-14.4 xqmz=808) PLATELET COUNT (BEAKER) (test ryug=858) 184 K/CU MM 150-450 MEAN PLATELET VOLUME (BEAKER) (test jnqj=588) 9.5 fL 9.4-12.4 NUCLEATED RED BLOOD CELLS (BEAKER) (test 0 /100 WBC 0-0 usux=524) NEUTROPHILS RELATIVE PERCENT (BEAKER) (test 79 % rkfy=417) LYMPHOCYTES RELATIVE PERCENT (BEAKER) (test 8 % iyzj=463) MONOCYTES RELATIVE PERCENT (BEAKER) (test 8 % kmpc=064) EOSINOPHILS RELATIVE PERCENT (BEAKER) (test 2 % alon=708) BASOPHILS RELATIVE PERCENT (BEAKER) (test 1 % dxnw=935) NEUTROPHILS ABSOLUTE COUNT (BEAKER) (test 8.70 K/ L 1.78-5.38 vsfo=832) LYMPHOCYTES ABSOLUTE COUNT (BEAKER) (test 0.86 K/ L 1.32-3.57 baoe=980) MONOCYTES ABSOLUTE COUNT (BEAKER) (test 0.91 K/ L 0.30-0.82 qrlf=282) EOSINOPHILS ABSOLUTE COUNT (BEAKER) (test 0.24 K/ L 0.04-0.54 tquf=979) BASOPHILS ABSOLUTE COUNT (BEAKER) (test 0.08 K/ L 0.01-0.08 yzyx=913) IMMATURE GRANULOCYTES-RELATIVE PERCENT (BEAKER) 2 % 0-1 (test cvwj=8670) PROTHROMBIN [id number] 06:32:00 Test Item Value Reference Range Comments PROTIME (BEAKER) (test dixu=298) 23.2 seconds 11.7-14.7 INR (BEAKER) (test jyaa=925) 2.1 <=5.9 RECOMMENDED COUMADIN/WARFARIN INR THERAPY RANGESSTANDARD DOSE: 2.0 - 3.0 Includes: PROPHYLAXIS forvenous thrombosis, systemic embolization; TREATMENT for venous thrombosis and/or pulmonary embolus.HIGH RISK: Target INR is 2.5-3.5 for patients with mechanical heart valves.POCT-GLUCOSE [id number] 21:21:00 Test Item Value Reference Range Comments POC-GLUCOSE METER (BEAKER) 177 mg/dL 70-110 TESTED AT [address] (test mylw=9327) [facility] [id number] POCT-GLUCOSE [id number] 17:53:00 Test Item Value Reference Range Comments POC-GLUCOSE METER (BEAKER) 89 mg/dL 70-110 TESTED AT [address] (test nzpi=8822) [place] [id number] IRON, TIBC, % SAT. (WITHOUT FERRITIN)[id number] 17:45:00 Test Item Value Reference Range Comments IRON (BEAKER) (test gvud=974) 63 ug/dL 40-160 TOTAL IRON BINDING CAPACITY (BEAKER) (test 203 ug/dL 250-450 diuv=896) IRON % SATURATION (2) (BEAKER) (test vtkw=5296) 31 % 20-55 [id number] 16:07:00 Test Item Value Reference Range Comments PHOSPHORUS (BEAKER) (test fbnf=301) 5.4 mg/dL 2.3-4.7 POCT-GLUCOSE [id number] 12:41:00 Test Item Value Reference Range Comments POC-GLUCOSE METER (BEAKER) 110 mg/dL 70-110 TESTED AT [address] (test bvhi=6800) [place] [address] POCT-GLUCOSE [id number] 07:00:00 Test Item Value Reference Range Comments POC-GLUCOSE METER (BEAKER) 159 mg/dL 70-110 TESTED AT [address] (test scdd=0055) [place] [id number] BASIC METABOLIC [id number] 05:19:00 Test Item Value Reference Range Comments SODIUM (BEAKER) (test 136 meq/L 136-145 dgyd=821) POTASSIUM (BEAKER) (test 3.6 meq/L 3.5-5.1 ezwx=971) CHLORIDE (BEAKER) (test 98 meq/L 98-107 tann=229) CO2 (BEAKER) (test 26 meq/L 22-29 qkfj=449) BLOOD UREA NITROGEN 33 mg/dL 7-21 (BEAKER) (test lffn=696) CREATININE (BEAKER) (test 6.38 mg/dL 0.57-1.25 mwyg=657) GLUCOSE RANDOM (BEAKER) 122 mg/dL 70-105 (test zkdb=097) CALCIUM (BEAKER) (test 8.4 mg/dL 8.4-10.2 lgna=538) EGFR (BEAKER) (test 11 mL/min/1.73 sq m ESTIMATED GFR IS NOT ahhh=3349) ACCURATE CREATININE CLEARANCE IN PREDICTING GLOMERULAR FILTRATION RATE. ESTIMATED GFR IS NOT APPLICABLE FOR DIALYSIS PATIENTS. [id number] 05:18:00 Test Item Value Reference Range Comments MAGNESIUM (BEAKER) (test tjld=258) 1.9 mg/dL 1.6-2.6 PROTHROMBIN [id number] 05:03:00 Test Item Value Reference Range Comments PROTIME (BEAKER) (test lvop=401) 30.2 seconds 11.7-14.7 INR (BEAKER) (test leyu=040) 2.9 <=5.9 RECOMMENDED COUMADIN/WARFARIN INR THERAPY RANGESSTANDARD DOSE: 2.0 - 3.0 Includes: PROPHYLAXIS forvenous thrombosis, systemic embolization; TREATMENT for venous thrombosis and/or pulmonary embolus.HIGH RISK: Target INR is 2.5-3.5 for patients with mechanical heart valves.CBC W/PLT COUNT & AUTO [id number] 04:51:00 Test Item Value Reference Range Comments WHITE BLOOD CELL COUNT (BEAKER) (test outx=597) 10.2 K/ L 3.5-10.5 RED BLOOD CELL COUNT (BEAKER) (test jlzk=705) 3.27 M/ L 4.63-6.08 HEMOGLOBIN (BEAKER) (test qbho=737) 9.7 GM/DL 13.7-17.5 HEMATOCRIT (BEAKER) (test splv=552) 30.5 % 40.1-51.0 MEAN CORPUSCULAR VOLUME (BEAKER) (test zsrw=896) 93.3 fL 79.0-92.2 MEAN CORPUSCULAR HEMOGLOBIN (BEAKER) (test 29.7 pg 25.7-32.2 xepk=911) MEAN CORPUSCULAR HEMOGLOBIN CONC (BEAKER) (test 31.8 GM/DL 32.3-36.5 emhw=067) RED CELL DISTRIBUTION WIDTH (BEAKER) (test 15.8 % 11.6-14.4 pzlc=494) PLATELET COUNT (BEAKER) (test slzw=486) 181 K/CU MM 150-450 MEAN PLATELET VOLUME (BEAKER) (test vjhr=078) 9.4 fL 9.4-12.4 NUCLEATED RED BLOOD CELLS (BEAKER) (test 0 /100 WBC 0-0 lkkp=289) NEUTROPHILS RELATIVE PERCENT (BEAKER) (test 78 % dudv=821) LYMPHOCYTES RELATIVE PERCENT (BEAKER) (test 8 % oayy=035) MONOCYTES RELATIVE PERCENT (BEAKER) (test 10 % pamj=231) EOSINOPHILS RELATIVE PERCENT (BEAKER) (test 2 % tqxp=672) BASOPHILS RELATIVE PERCENT (BEAKER) (test 1 % kjnu=968) NEUTROPHILS ABSOLUTE COUNT (BEAKER) (test 7.90 K/ L 1.78-5.38 anfu=036) LYMPHOCYTES ABSOLUTE COUNT (BEAKER) (test 0.86 K/ L 1.32-3.57 pbqu=275) MONOCYTES ABSOLUTE COUNT (BEAKER) (test 1.01 K/ L 0.30-0.82 dpgh=393) EOSINOPHILS ABSOLUTE COUNT (BEAKER) (test 0.17 K/ L 0.04-0.54 rcfb=526) BASOPHILS ABSOLUTE COUNT (BEAKER) (test 0.07 K/ L 0.01-0.08 swhk=057) IMMATURE GRANULOCYTES-RELATIVE PERCENT (BEAKER) 2 % 0-1 (test jtvs=9659) POCT-GLUCOSE [id number] 23:35:00 Test Item Value Reference Range Comments POC-GLUCOSE METER (BEAKER) 190 mg/dL 70-110 TESTED AT [place] [id number] [facility] (test wohy=7158) [place] [address] POCT-GLUCOSE [id number] 17:16:00 Test Item Value Reference Range Comments POC-GLUCOSE METER (BEAKER) 122 mg/dL 70-110 TESTED AT [address] (test mrac=2408) [place] [address] U/S, TESTICULAR (SCROTUM)2018-05-21 14:53:00Reason for exam:->testicular swellingFINAL REPORT Scrotal ultrasound, 05/21/2018 Clinical History: Testicular swelling Discussion: Sonographic evaluation of the scrotal contents is performed. In addition, color Doppler and spectral waveform analysis evaluations of the scrotal contents are obtained. The testes havehomogeneous echotexture, without focal mass. The right testis measures 4.0 x 2.2 x 2.3. The left testis measures 3.6 x 2.2 x 2.1. On color Doppler evaluation, there is symmetric blood flow to both testes. The epididymal heads have normal size and appearance. Scratch that There is diffuse subcutaneous edema and soft tissue swelling of the scrotal sac. Additional images were obtained in the right inguinal region and there is a anechoic 4.8 x 2.7 x 3.8 cm fluid collection in the right groin which does not demonstrate internal flow. In the left groin there is a complex 4.0 x 2.5 x 3.8 cm fluid collection concerning for a subcutaneous abscess or necrotic lymph node. Impression:1. Diffuse scrotal soft tissue swelling and edema.2. Normal ultrasound evaluation of the testes.3. Complex fluid collection inthe left groin measuring 4 x 2.5 x 3.8 cm concerning for abscess or necrotic lymph node.4. Anechoic 4.8 x 2.7 x 3.8 cm fluid collection in the right groin. There is no flow within this collection making a pseudoaneurysm less likely. Postoperative seroma or lymphocele is a consideration. Signed: Reagan Carr Verified Date/ Time: 05/21/2018 14:53:00 Reading Location: [facility] [id number] UltrasoundReading Room POCT-GLUCOSE [id number] 11:22:00 Test Item Value Reference Range Comments POC-GLUCOSE METER (BEAKER) 144 mg/dL 70-110 TESTED AT [address] (test xohj=9101) [facility] [address] POCT-GLUCOSE [id number] 07:05:00 Test Item Value Reference Range Comments POC-GLUCOSE METER (BEAKER) 171 mg/dL 70-110 TESTED AT [address] (test bxmd=0848) [facility] [address] BASIC METABOLIC [id number] 06:19:00 Test Item Value Reference Range Comments SODIUM (BEAKER) (test 137 meq/L 136-145 nhgr=641) POTASSIUM (BEAKER) (test 3.3 meq/L 3.5-5.1 qfvz=696) CHLORIDE (BEAKER) (test 98 meq/L 98-107 dznw=960) CO2 (BEAKER) (test 31 meq/L 22-29 beah=939) BLOOD UREA NITROGEN 22 mg/dL 7-21 (BEAKER) (test izav=105) CREATININE (BEAKER) (test 4.82 mg/dL 0.57-1.25 vwoh=588) GLUCOSE RANDOM (BEAKER) 161 mg/dL 70-105 (test iqbz=178) CALCIUM (BEAKER) (test 8.5 mg/dL 8.4-10.2 yeno=263) EGFR (BEAKER) (test 15 mL/min/1.73 sq m ESTIMATED GFR IS NOT qlsc=0119) ACCURATE CREATININE CLEARANCE IN PREDICTING GLOMERULAR FILTRATION RATE. ESTIMATED GFR IS NOT APPLICABLE FOR DIALYSIS PATIENTS. [id number] 06:04:00 Test Item Value Reference Range Comments MAGNESIUM (BEAKER) (test femn=313) 1.9 mg/dL 1.6-2.6 PROTHROMBIN [id number] 05:31:00 Test Item Value Reference Range Comments PROTIME (BEAKER) (test bmxy=200) 29.0 seconds 11.7-14.7 INR (BEAKER) (test nszs=448) 2.7 <=5.9 RECOMMENDED COUMADIN/WARFARIN INR THERAPY RANGESSTANDARD DOSE: 2.0 - 3.0 Includes: PROPHYLAXIS forvenous thrombosis, systemic embolization; TREATMENT for venous thrombosis and/or pulmonary embolus.HIGH RISK: Target INR is 2.5-3.5 for patients with mechanical heart valves.CBC W/PLT COUNT & AUTO [id number] 05:27:00 Test Item Value Reference Range Comments WHITE BLOOD CELL COUNT (BEAKER) (test clxx=732) 9.5 K/ L 3.5-10.5 RED BLOOD CELL COUNT (BEAKER) (test jdls=651) 3.38 M/ L 4.63-6.08 HEMOGLOBIN (BEAKER) (test fowd=583) 10.0 GM/DL 13.7-17.5 HEMATOCRIT (BEAKER) (test kgiu=343) 31.5 % 40.1-51.0 MEAN CORPUSCULAR VOLUME (BEAKER) (test bqit=842) 93.2 fL 79.0-92.2 MEAN CORPUSCULAR HEMOGLOBIN (BEAKER) (test 29.6 pg 25.7-32.2 bgty=359) MEAN CORPUSCULAR HEMOGLOBIN CONC (BEAKER) (test 31.7 GM/DL 32.3-36.5 tgkh=890) RED CELL DISTRIBUTION WIDTH (BEAKER) (test 15.7 % 11.6-14.4 hifa=595) PLATELET COUNT (BEAKER) (test rfpl=112) 178 K/CU MM 150-450 MEAN PLATELET VOLUME (BEAKER) (test jskp=623) 8.7 fL 9.4-12.4 NUCLEATED RED BLOOD CELLS (BEAKER) (test 0 /100 WBC 0-0 gpnj=893) NEUTROPHILS RELATIVE PERCENT (BEAKER) (test 77 % qtwz=640) LYMPHOCYTES RELATIVE PERCENT (BEAKER) (test 9 % ggqu=252) MONOCYTES RELATIVE PERCENT (BEAKER) (test 10 % rgpg=424) EOSINOPHILS RELATIVE PERCENT (BEAKER) (test 2 % dkgt=122) BASOPHILS RELATIVE PERCENT (BEAKER) (test 1 % dlml=791) NEUTROPHILS ABSOLUTE COUNT (BEAKER) (test 7.36 K/ L 1.78-5.38 jhbr=774) LYMPHOCYTES ABSOLUTE COUNT (BEAKER) (test 0.88 K/ L 1.32-3.57 pwgy=301) MONOCYTES ABSOLUTE COUNT (BEAKER) (test 0.95 K/ L 0.30-0.82 cdii=209) EOSINOPHILS ABSOLUTE COUNT (BEAKER) (test 0.16 K/ L 0.04-0.54 damb=553) BASOPHILS ABSOLUTE COUNT (BEAKER) (test 0.05 K/ L 0.01-0.08 dlia=007) IMMATURE GRANULOCYTES-RELATIVE PERCENT (BEAKER) 1 % 0-1 (test umuu=2988) POCT-GLUCOSE [id number] 21:29:00 Test Item Value Reference Range Comments POC-GLUCOSE METER (BEAKER) 156 mg/dL 70-110 TESTED AT [address] (test ulcz=5917) [facility] [address] POCT-GLUCOSE [id number] 18:14:00 Test Item Value Reference Range Comments POC-GLUCOSE METER (BEAKER) 93 mg/dL 70-110 TESTED AT [address] (test vwwo=3575) [facility] [address] PROTHROMBIN [id number] 13:26:00 Test Item Value Reference Range Comments PROTIME (BEAKER) (test lupc=647) 42.0 seconds 11.7-14.7 INR (BEAKER) (test ovsl=311) 4.4 <=5.9 RECOMMENDED COUMADIN/WARFARIN INR THERAPY RANGESSTANDARD DOSE: 2.0 - 3.0 Includes: PROPHYLAXIS forvenous thrombosis, systemic embolization; TREATMENT for venous thrombosis and/or pulmonary embolus.HIGH RISK: Target INR is 2.5-3.5 for patients with mechanical heart valves.LACTIC ACID, VENOUS, WHOLE [id number] 13:18:00 Test Item Value Reference Range Comments LACTATE BLOOD VENOUS (2) (BEAKER) (test 0.8 mmol/L 0.5-2.2 bgnw=8848) Effective 01/04/2016: Units/Reference Range ChangeNew: 0.5-2.2 mmol/L Previous: 5 -20 mg/dLPOCT-GLUCOSE [id number] 12:04:00 Test Item Value Reference Range Comments POC-GLUCOSE METER (BEAKER) 111 mg/dL 70-110 TESTED AT [facility] [address] [facility] (test mhvp=9155) [facility] [address] CD4 T CELL [id number] 12:04:00 Test Item Value Reference Range Comments CD4/CD8 RATIO FC (BEAKER) (test qbpm=0514) 0.76 0.70-3.23 HEPATITIS B SURFACE [id number] 11:32:00 Test Item Value Reference Range Comments HEPATITIS B SURFACE ANTIGEN (2) (BEAKER) (test Nonreactive Nonreactive cwgz=4421) VANCOMYCIN LEVEL, [id number] 11:10:00 Test Item Value Reference Range Comments VANCOMYCIN RANDOM (BEAKER) (test xffk=667) 20.7 ug/mL Reference Range: No NormalsBASIC METABOLIC [id number] 09:19:00 Test Item Value Reference Range Comments SODIUM (BEAKER) (test 129 meq/L 136-145 aepi=546) POTASSIUM (BEAKER) (test 3.4 meq/L 3.5-5.1 ecrv=644) CHLORIDE (BEAKER) (test 93 meq/L 98-107 rcwv=918) CO2 (BEAKER) (test 26 meq/L 22-29 ggqx=977) BLOOD UREA NITROGEN 46 mg/dL 7-21 (BEAKER) (test ybdr=340) CREATININE (BEAKER) (test 7.70 mg/dL 0.57-1.25 vlya=061) GLUCOSE RANDOM (BEAKER) 129 mg/dL 70-105 (test emva=834) CALCIUM (BEAKER) (test 8.5 mg/dL 8.4-10.2 zvgt=448) EGFR (BEAKER) (test 9 mL/min/1.73 sq m ESTIMATED GFR IS NOT daau=4782) ACCURATE CREATININE CLEARANCE IN PREDICTING GLOMERULAR FILTRATION RATE. ESTIMATED GFR IS NOT APPLICABLE FOR DIALYSIS PATIENTS. [id number] 09:16:00 Test Item Value Reference Range Comments MAGNESIUM (BEAKER) (test mqtp=553) 2.1 mg/dL 1.6-2.6 RAD, CHEST, 1 VIEW, NON [id number] 07:56:00Reason for exam:->pleural effusion seen on outside hospital imagingShould this be performed at the bedside ?->YesFINAL REPORT Chest one view compared to February 23 Discussion: Small effusions are similar. Replaced cardiac valve and atrial appendage clip noted. No pneumothorax. Unchanged cardiac pulmonary appearance. Signed: Rhea Colindresepdamion Verified Date/Time: 05/20/2018 07:56:50 Reading Location: [facility] Radiology Reading Room POCT-GLUCOSE [id number] 07:32:00 Test Item Value Reference Range Comments POC-GLUCOSE METER (BEAKER) 105 mg/dL 70-110 TESTED AT [facility] [address] [facility] (test cxdo=6973) [facility] [address] CBC W/PLT COUNT & AUTO [id number] 07:01:00 Test Item Value Reference Range Comments WHITE BLOOD CELL COUNT (BEAKER) (test sduc=585) 9.1 K/ L 3.5-10.5 RED BLOOD CELL COUNT (BEAKER) (test zhbu=441) 3.34 M/ L 4.63-6.08 HEMOGLOBIN (BEAKER) (test winm=736) 9.8 GM/DL 13.7-17.5 HEMATOCRIT (BEAKER) (test tsry=067) 30.9 % 40.1-51.0 MEAN CORPUSCULAR VOLUME (BEAKER) (test wxuh=152) 92.5 fL 79.0-92.2 MEAN CORPUSCULAR HEMOGLOBIN (BEAKER) (test 29.3 pg 25.7-32.2 umss=869) MEAN CORPUSCULAR HEMOGLOBIN CONC (BEAKER) (test 31.7 GM/DL 32.3-36.5 xkvw=294) RED CELL DISTRIBUTION WIDTH (BEAKER) (test 15.8 % 11.6-14.4 ybcw=387) PLATELET COUNT (BEAKER) (test innd=587) 173 K/CU MM 150-450 MEAN PLATELET VOLUME (BEAKER) (test gebc=553) 9.2 fL 9.4-12.4 NUCLEATED RED BLOOD CELLS (BEAKER) (test 0 /100 WBC 0-0 zkaz=550) NEUTROPHILS RELATIVE PERCENT (BEAKER) (test 78 % urlj=085) LYMPHOCYTES RELATIVE PERCENT (BEAKER) (test 9 % exke=942) MONOCYTES RELATIVE PERCENT (BEAKER) (test 11 % dxsv=429) EOSINOPHILS RELATIVE PERCENT (BEAKER) (test 1 % yhub=003) BASOPHILS RELATIVE PERCENT (BEAKER) (test 0 % cshw=423) NEUTROPHILS ABSOLUTE COUNT (BEAKER) (test 7.12 K/ L 1.78-5.38 jkis=447) LYMPHOCYTES ABSOLUTE COUNT (BEAKER) (test 0.84 K/ L 1.32-3.57 eqie=483) MONOCYTES ABSOLUTE COUNT (BEAKER) (test 0.98 K/ L 0.30-0.82 wyox=109) EOSINOPHILS ABSOLUTE COUNT (BEAKER) (test 0.07 K/ L 0.04-0.54 adic=659) BASOPHILS ABSOLUTE COUNT (BEAKER) (test 0.03 K/ L 0.01-0.08 xxmo=080) IMMATURE GRANULOCYTES-RELATIVE PERCENT (BEAKER) 1 % 0-1 (test eccb=0225) VANCOMYCIN LEVEL, [id number] 22:39:00 Test Item Value Reference Range Comments VANCOMYCIN RANDOM (BEAKER) (test fpwq=348) 22.0 ug/mL Reference Range: No NormalsCOMPREHENSIVE METABOLIC [id number] 22:39:00 Test Item Value Reference Range Comments TOTAL PROTEIN (BEAKER) 7.3 gm/dL 6.0-8.3 (test ylmt=238) ALBUMIN (BEAKER) (test 3.0 g/dL 3.5-5.0 imbw=5127) ALKALINE PHOSPHATASE 65 U/L 40-150 (BEAKER) (test pnsh=397) BILIRUBIN TOTAL (BEAKER) 0.9 mg/dL 0.2-1.2 (test xhjy=503) SODIUM (BEAKER) (test 130 meq/L 136-145 llpp=771) POTASSIUM (BEAKER) (test 3.5 meq/L 3.5-5.1 gcei=720) CHLORIDE (BEAKER) (test 94 meq/L 98-107 pxxl=900) CO2 (BEAKER) (test 24 meq/L 22-29 ciwg=940) BLOOD UREA NITROGEN 44 mg/dL 7-21 (BEAKER) (test demk=707) CREATININE (BEAKER) (test 7.35 mg/dL 0.57-1.25 nuab=566) GLUCOSE RANDOM (BEAKER) 144 mg/dL 70-105 (test myjw=637) CALCIUM (BEAKER) (test 8.6 mg/dL 8.4-10.2 erlh=557) AST (SGOT) (BEAKER) (test 30 U/L 5-34 fzvg=521) ALT (SGPT) (BEAKER) (test 21 U/L 6-55 fmid=799) EGFR (BEAKER) (test 9 mL/min/1.73 sq m ESTIMATED GFR IS NOT pbnc=4406) ACCURATE CREATININE CLEARANCE IN PREDICTING GLOMERULAR FILTRATION RATE. ESTIMATED GFR IS NOT APPLICABLE FOR DIALYSIS PATIENTS. [id number] 22:38:00 Test Item Value Reference Range Comments PHOSPHORUS (BEAKER) (test pkqd=233) 4.5 mg/dL 2.3-4.7 [id number] 22:38:00 Test Item Value Reference Range Comments MAGNESIUM (BEAKER) (test uduv=401) 2.0 mg/dL 1.6-2.6 [id number] 22:29:00 Test Item Value Reference Range Comments PARTIAL THROMBOPLASTIN TIME (BEAKER) (test 45.0 seconds 22.5-36.0 ptbx=643) PROTHROMBIN [id number] 22:28:00 Test Item Value Reference Range Comments PROTIME (BEAKER) (test kamp=991) 48.1 seconds 11.7-14.7 INR (BEAKER) (test xfoy=177) 5.2 <=5.9 RECOMMENDED COUMADIN/WARFARIN INR THERAPY RANGESSTANDARD DOSE: 2.0 - 3.0 Includes: PROPHYLAXIS forvenous thrombosis, systemic embolization; TREATMENT for venous thrombosis and/or pulmonary embolus.HIGH RISK: Target INR is 2.5-3.5 for patients with mechanical heart valves.POCT-GLUCOSE [id number] 21:38:00 Test Item Value Reference Range Comments POC-GLUCOSE METER (JARROD) 105 mg/dL 70-110 TESTED AT [facility] [address] (test fqvw=7961) [place] [address] XR Ankle Complete 3+ Views [id number] 22:30:07Patient: CALEB LUGO Date/Time05/12/2018 22:24 CDTReason for ExamFallReportEXAM: XR ANKLE 3 VIEWS, RIGHTINDICATION: FallCOMPARISON: None availableTECHNIQUE: AP, lateral and oblique views of the right ankle.FINDINGS:No acute fracture or dislocation is identified. No osseous lesions. The joint spaces are maintained. The ankle mortise is preserved. No soft tissue abnormality is identified.IMPRESSION:No acute osseous abnormality of the right ankle.LOCATION: R16 Final Dictated by: MD Cerrato Melanie CDictated DT/TM: 05/12/2018 10:29 pmSigned by: MD Cerrato Melanie CSigned (Electronic Signature): 05/12/2018 10:30 pmXR Chest 1 View [id number] 09:48:17Patient: CALEB LUGO Date/Time05/12/2018 09:30 CDTReason for ExamChest painReportCHEST 1 VIEWCLINICAL INFORMATION: Chest painCOMPARISON: November 19, 2017FINDINGS:The cardiac silhouette is moderately enlarged. A cardiac valve replacement and median sternotomy wires are now seen. There is prominence of the central pulmonary vasculature and interstitial markings. Right basilar alveolar opacities are also present. Small layering pleural effusions are noted , right greater than left.IMPRESSION:1. Enlarged cardiac silhouette with interstitial pulmonary edema.2. Small layering pleural effusions, right greater than left.LOCATION: R16 Final Dictated by: MD David Adam FDictated DT/TM: 05/12/2018 9:45 amSigned by: MD David Adam FSigned ( Electronic Signature): 05/12/2018 9:48 amBASIC METABOLIC [id number] 11:15: 00 Test Item Value Reference Range Comments SODIUM (BEAKER) (test 139 meq/L 136-145 wfdj=571) POTASSIUM (BEAKER) (test 3.5 meq/L 3.5-5.1 njxs=176) CHLORIDE (BEAKER) (test 96 meq/L 98-107 qabe=268) CO2 (BEAKER) (test 29 meq/L 22-29 enhs=105) BLOOD UREA NITROGEN 31 mg/dL 7-21 (BEAKER) (test edsc=900) CREATININE (BEAKER) (test 6.31 mg/dL 0.57-1.25 tqgm=413) GLUCOSE RANDOM (BEAKER) 147 mg/dL 70-105 (test vtwc=951) CALCIUM (BEAKER) (test 9.7 mg/dL 8.4-10.2 zayf=457) EGFR (BEAKER) (test 11 mL/min/1.73 sq m ESTIMATED GFR IS NOT tamw=1558) ACCURATE CREATININE CLEARANCE IN PREDICTING GLOMERULAR FILTRATION RATE. ESTIMATED GFR IS NOT APPLICABLE FOR DIALYSIS PATIENTS. B-TYPE NATRIURETIC FACTOR (BNP)2018-03-19 11:13:00 Test Item Value Reference Range Comments B-TYPE NATRIURETIC PEPTIDE (BEAKER) (test 3030 pg/mL 0-100 ddie=074) BASIC METABOLIC [id number] 02:55:00 Test Item Value Reference Range Comments SODIUM (BEAKER) (test 139 meq/L 136-145 dtcb=269) POTASSIUM (BEAKER) (test 4.1 meq/L 3.5-5.1 msnp=272) CHLORIDE (BEAKER) (test 97 meq/L 98-107 xdsw=420) CO2 (BEAKER) (test 32 meq/L 22-29 upak=680) BLOOD UREA NITROGEN 34 mg/dL 7-21 (BEAKER) (test dqda=299) CREATININE (BEAKER) (test 5.68 mg/dL 0.57-1.25 rhej=431) GLUCOSE RANDOM (BEAKER) 109 mg/dL 70-105 (test lyak=789) CALCIUM (BEAKER) (test 9.3 mg/dL 8.4-10.2 osrl=297) EGFR (BEAKER) (test 12 mL/min/1.73 sq m ESTIMATED GFR IS NOT cbct=8817) ACCURATE CREATININE CLEARANCE IN PREDICTING GLOMERULAR FILTRATION RATE. ESTIMATED GFR IS NOT APPLICABLE FOR DIALYSIS PATIENTS. B-TYPE NATRIURETIC FACTOR (BNP)2018-02-24 02:31:00 Test Item Value Reference Range Comments B-TYPE NATRIURETIC PEPTIDE (BEAKER) (test 3676 pg/mL 0-100 tgzm=300) TROPONIN [id number] 02:30:00 Test Item Value Reference Range Comments TROPONIN I (BEAKER) (test fqqw=142) 0.14 ng/mL 0.00-0.03 Troponin I (TnI) levels must be interpreted in the context of the presenting symptoms and the clinical findings. Elevated TnI levels indicate myocardial damage, but are not specific for ischemic heart disease. Elevated TnI levels are seen in patients with other cardiac conditions (including myocarditis and congestive heart failure), and slight TnI elevations occur in patients with other conditions, including sepsis, renal failure, acidosis, acute neurological disease, and persistent tachyarrhythmia.[id number] 02:21:00 Test Item Value Reference Range Comments MAGNESIUM (BEAKER) (test oxba=290) 1.8 mg/dL 1.6-2.6 CBC W/PLT COUNT & AUTO [id number] 00:24:00 Test Item Value Reference Range Comments WHITE BLOOD CELL COUNT (BEAKER) (test naeh=385) 7.8 K/ L 3.5-10.5 RED BLOOD CELL COUNT (BEAKER) (test bmoe=488) 3.03 M/ L 4.63-6.08 HEMOGLOBIN (BEAKER) (test bdzk=582) 9.2 GM/DL 13.7-17.5 HEMATOCRIT (BEAKER) (test pjpq=734) 30.1 % 40.1-51.0 MEAN CORPUSCULAR VOLUME (BEAKER) (test uuek=778) 99.3 fL 79.0-92.2 MEAN CORPUSCULAR HEMOGLOBIN (BEAKER) (test 30.4 pg 25.7-32.2 kjah=310) MEAN CORPUSCULAR HEMOGLOBIN CONC (BEAKER) (test 30.6 GM/DL 32.3-36.5 xxjx=212) RED CELL DISTRIBUTION WIDTH (BEAKER) (test 18.5 % 11.6-14.4 gogk=350) PLATELET COUNT (BEAKER) (test otgq=256) 83 K/CU MM 150-450 MEAN PLATELET VOLUME (BEAKER) (test wuoc=810) 10.2 fL 9.4-12.4 NUCLEATED RED BLOOD CELLS (BEAKER) (test 0 /100 WBC 0-0 cjqp=582) NEUTROPHILS RELATIVE PERCENT (BEAKER) (test 63 % sagp=705) LYMPHOCYTES RELATIVE PERCENT (BEAKER) (test 21 % sgdj=681) MONOCYTES RELATIVE PERCENT (BEAKER) (test 13 % huib=002) EOSINOPHILS RELATIVE PERCENT (BEAKER) (test 1 % qlnc=604) BASOPHILS RELATIVE PERCENT (BEAKER) (test 1 % rgcw=525) NEUTROPHILS ABSOLUTE COUNT (BEAKER) (test 4.95 K/ L 1.78-5.38 qjzd=902) LYMPHOCYTES ABSOLUTE COUNT (BEAKER) (test 1.61 K/ L 1.32-3.57 ydxx=200) MONOCYTES ABSOLUTE COUNT (BEAKER) (test lwve=042) 1.04 K/ L 0.30-0.82 EOSINOPHILS ABSOLUTE COUNT (BEAKER) (test 0.10 K/ L 0.04-0.54 bgcg=029) BASOPHILS ABSOLUTE COUNT (BEAKER) (test aljd=810) 0.06 K/ L 0.01-0.08 IMMATURE GRANULOCYTES-RELATIVE PERCENT (BEAKER) 1 % 0-1 (test qcxj=1775) [id number] 00:01:00 Test Item Value Reference Range Comments PROTIME (BEAKER) (test sdpt=337) 14.4 seconds 11.7-14.7 INR (BEAKER) (test lhtm=761) 1.1 <=5.9 PARTIAL THROMBOPLASTIN TIME (BEAKER) (test 28.5 seconds 22.5-36.0 yrkr=698) RECOMMENDED COUMADIN/WARFARIN INR THERAPY RANGESSTANDARD DOSE: 2.0 - 3.0 Includes: PROPHYLAXIS forvenous thrombosis, systemic embolization; TREATMENT for venous thrombosis and/or pulmonary embolus.HIGH RISK: Target INR is 2.5-3.5 for patients with mechanical heart valves.RAD, CHEST, 1 VIEW, NON [id number] 23:39:00Reason for exam:->chest painShould this be performed at the bedside?->YesFINAL REPORT EXAMINATION: AP PORTABLE CHEST RADIOGRAPH CLINICAL INDICATION: Chest pain IMPRESSION: Compared with 2017. A midline sternotomy and prosthetic cardiac valve are again noted. The enlarged heart, parenchymal lung opacities and superimposed pleural effusions are nonspecific but concerning for fluid overload-heart failure. An underlying pneumonia or mass lesion cannot be excluded. No definite evidence of an acute osseous abnormality or pneumothorax. In summary, constellation of findings worrisome for fluid overload-heart failure. Signed: Josiah Wan Verified Date/Time: 02/23/2018 23:39:58 Reading Location: [address] Reading Room Electronically signed by: JOSIAH WAN M.D. on 11:39 PMPOCT-GLUCOSE [id number] 19:47:00 Test Item Value Reference Range Comments POC-GLUCOSE METER (BEAKER) 94 mg/dL 70-110 TESTED AT [address] (test vbcn=3319) [place] [id number] POCT-GLUCOSE [id number] 17:07:00 Test Item Value Reference Range Comments POC-GLUCOSE METER (BEAKER) 176 mg/dL 70-110 TESTED AT [address] (test tynt=2697) [place] [address] POCT-GLUCOSE [id number] 12:31:00 Test Item Value Reference Range Comments POC-GLUCOSE METER (BEAKER) 84 mg/dL 70-110 TESTED AT [address] (test jrff=7576) [place] [address] [id number] 10:40:00 Test Item Value Reference Range Comments PARTIAL THROMBOPLASTIN TIME (BEAKER) (test 88.5 seconds 22.5-36.0 tezj=897) OCCULT BLOOD, [id number] 09:36:00 Test Item Value Reference Range Comments FECAL OCCULT BLOOD (BEAKER) (test teau=446) Negative Negative POCT-GLUCOSE [id number] 08:51:00 Test Item Value Reference Range Comments POC-GLUCOSE METER (BEAKER) 223 mg/dL 70-110 TESTED AT [address] (test ckju=6719) [place] [address] [id number] 04:14:00 Test Item Value Reference Range Comments PARTIAL THROMBOPLASTIN TIME (BEAKER) (test 80.3 seconds 22.5-36.0 gkfa=880) While on warfarin.PROTHROMBIN [id number] 04:13:00 Test Item Value Reference Range Comments PROTIME (BEAKER) (test jjiw=320) 23.8 seconds 11.7-14.7 INR (BEAKER) (test lmxq=212) 2.1 <=5.9 RECOMMENDED COUMADIN/WARFARIN INR THERAPY RANGESSTANDARD DOSE: 2.0 - 3.0 Includes: PROPHYLAXIS forvenous thrombosis, systemic embolization; TREATMENT for venous thrombosis and/or pulmonary embolus.HIGH RISK: Target INR is 2.5-3.5 for patients with mechanical heart valves.While on warfarin.POCT-GLUCOSE [id number] 21:56:00 Test Item Value Reference Range Comments POC-GLUCOSE METER (BEAKER) 206 mg/dL 70-110 TESTED AT [address] (test jlti=1548) [place] [address] [id number] 19:50:00 Test Item Value Reference Range Comments PARTIAL THROMBOPLASTIN TIME (BEAKER) (test 59.7 seconds 22.5-36.0 htqs=190) POCT-GLUCOSE [id number] 17:00:00 Test Item Value Reference Range Comments POC-GLUCOSE METER (BEAKER) 183 mg/dL 70-110 TESTED AT [address] (test qjka=7456) [place] [address] [id number] 12:45:00 Test Item Value Reference Range Comments PARTIAL THROMBOPLASTIN TIME (BEAKER) (test 89.5 seconds 22.5-36.0 psvr=432) CBC W/PLT COUNT & AUTO [id number] 12:04:00 Test Item Value Reference Range Comments WHITE BLOOD CELL COUNT (BEAKER) (test vgnm=583) 4.8 K/ L 3.5-10.5 RED BLOOD CELL COUNT (BEAKER) (test ayec=123) 2.46 M/ L 4.63-6.08 HEMOGLOBIN (BEAKER) (test rjkw=909) 7.5 GM/DL 13.7-17.5 HEMATOCRIT (BEAKER) (test ghpr=830) 24.2 % 40.1-51.0 MEAN CORPUSCULAR VOLUME (BEAKER) (test ssex=682) 98.4 fL 79.0-92.2 MEAN CORPUSCULAR HEMOGLOBIN (BEAKER) (test 30.5 pg 25.7-32.2 wkdn=908) MEAN CORPUSCULAR HEMOGLOBIN CONC (BEAKER) (test 31.0 GM/DL 32.3-36.5 hjop=881) RED CELL DISTRIBUTION WIDTH (BEAKER) (test 18.0 % 11.6-14.4 gbhi=106) PLATELET COUNT (BEAKER) (test zwjt=258) 90 K/CU MM 150-450 MEAN PLATELET VOLUME (BEAKER) (test fzbs=120) 9.3 fL 9.4-12.4 NUCLEATED RED BLOOD CELLS (BEAKER) (test 0 /100 WBC 0-0 qoym=037) POCT-GLUCOSE [id number] 11:54:00 Test Item Value Reference Range Comments POC-GLUCOSE METER (BEAKER) 124 mg/dL 70-110 TESTED AT [address] (test cbwj=0409) [place] [address] POCT-GLUCOSE [id number] 07:48:00 Test Item Value Reference Range Comments POC-GLUCOSE METER (BEAKER) 178 mg/dL 70-110 TESTED AT [address] (test peoy=8369) [place] [address] BASIC METABOLIC [id number] 05:15:00 Test Item Value Reference Range Comments SODIUM (BEAKER) (test 133 meq/L 136-145 rddy=371) POTASSIUM (BEAKER) (test 4.8 meq/L 3.5-5.1 ayni=801) CHLORIDE (BEAKER) (test 97 meq/L 98-107 wtdo=854) CO2 (BEAKER) (test 27 meq/L 22-29 iizv=472) BLOOD UREA NITROGEN 26 mg/dL 7-21 (BEAKER) (test rbnd=513) CREATININE (BEAKER) (test 5.28 mg/dL 0.57-1.25 slxb=916) GLUCOSE RANDOM (BEAKER) 131 mg/dL 70-105 (test eayc=553) CALCIUM (BEAKER) (test 8.5 mg/dL 8.4-10.2 oamj=033) EGFR (BEAKER) (test 14 mL/min/1.73 sq m ESTIMATED GFR IS NOT nbcn=5794) ACCURATE CREATININE CLEARANCE IN PREDICTING GLOMERULAR FILTRATION RATE. ESTIMATED GFR IS NOT APPLICABLE FOR DIALYSIS PATIENTS. [id number] 04:51:00 Test Item Value Reference Range Comments MAGNESIUM (BEAKER) (test skoh=407) 1.8 mg/dL 1.6-2.6 [id number] 04:36:00 Test Item Value Reference Range Comments PARTIAL THROMBOPLASTIN TIME (BEAKER) (test 91.9 seconds 22.5-36.0 ccpa=127) While on warfarin.PROTHROMBIN [id number] 04:34:00 Test Item Value Reference Range Comments PROTIME (BEAKER) (test aokz=699) 21.6 seconds 11.7-14.7 INR (BEAKER) (test acse=710) 1.9 <=5.9 RECOMMENDED COUMADIN/WARFARIN INR THERAPY RANGESSTANDARD DOSE: 2.0 - 3.0 Includes: PROPHYLAXIS forvenous thrombosis, systemic embolization; TREATMENT for venous thrombosis and/or pulmonary embolus.HIGH RISK: Target INR is 2.5-3.5 for patients with mechanical heart valves.While on warfarin.POCT-GLUCOSE [id number] 21:46:00 Test Item Value Reference Range Comments POC-GLUCOSE METER (BEAKER) 126 mg/dL 70-110 TESTED AT [address] (test qmbh=7619) [place] [address] [id number] 21:23:00 Test Item Value Reference Range Comments PARTIAL THROMBOPLASTIN TIME (BEAKER) (test 84.1 seconds 22.5-36.0 snyt=560) POCT-GLUCOSE [id number] 16:57:00 Test Item Value Reference Range Comments POC-GLUCOSE METER (BEAKER) 156 mg/dL 70-110 TESTED AT [address] (test axff=1404) [place] [address] [id number] 14:11:00 Test Item Value Reference Range Comments PARTIAL THROMBOPLASTIN TIME (BEAKER) (test 96.5 seconds 22.5-36.0 iegi=429) POCT-GLUCOSE [id number] 08:24:00 Test Item Value Reference Range Comments POC-GLUCOSE METER (BEAKER) 169 mg/dL 70-110 TESTED AT [address] (test ogqx=5831) [place] [address] POCT-GLUCOSE [id number] 06:49:00 Test Item Value Reference Range Comments POC-GLUCOSE METER (BEAKER) 172 mg/dL 70-110 TESTED AT [address] (test smud=6942) [place] [address] [id number] 04:59:00 Test Item Value Reference Range Comments PARTIAL THROMBOPLASTIN TIME (BEAKER) (test 64.7 seconds 22.5-36.0 azbq=833) While on warfarin.PROTHROMBIN TIME/[id number] 04:57:00 Test Item Value Reference Range Comments PROTIME (BEAKER) (test fnog=965) 17.5 seconds 11.7-14.7 INR (BEAKER) (test epfm=379) 1.4 <=5.9 RECOMMENDED COUMADIN/WARFARIN INR THERAPY RANGESSTANDARD DOSE: 2.0 - 3.0 Includes: PROPHYLAXIS forvenous thrombosis, systemic embolization; TREATMENT for venous thrombosis and/or pulmonary embolus.HIGH RISK: Target INR is 2.5-3.5 for patients with mechanical heart valves.While on warfarin.[id number] 21:55 :00 Test Item Value Reference Range Comments PARTIAL THROMBOPLASTIN TIME (BEAKER) (test 68.8 seconds 22.5-36.0 fsky=826) [id number] 13:54:00 Test Item Value Reference Range Comments PARTIAL THROMBOPLASTIN TIME (BEAKER) (test 51.7 seconds 22.5-36.0 zqeh=700) POCT-GLUCOSE [id number] 11:56:00 Test Item Value Reference Range Comments POC-GLUCOSE METER (BEAKER) 101 mg/dL 70-110 TESTED AT [address] (test geon=0592) [place] [address] POCT-GLUCOSE [id number] 07:58:00 Test Item Value Reference Range Comments POC-GLUCOSE METER (BEAKER) 111 mg/dL 70-110 TESTED AT [address] (test cxsu=0053) [place] [address] BASIC METABOLIC [id number] 05:35:00 Test Item Value Reference Range Comments SODIUM (BEAKER) (test 132 meq/L 136-145 qwig=396) POTASSIUM (BEAKER) (test 3.9 meq/L 3.5-5.1 ynzx=821) CHLORIDE (BEAKER) (test 95 meq/L 98-107 bgeb=828) CO2 (BEAKER) (test 26 meq/L 22-29 yewi=107) BLOOD UREA NITROGEN 29 mg/dL 7-21 (BEAKER) (test oiyg=164) CREATININE (BEAKER) (test 5.57 mg/dL 0.57-1.25 ntey=869) GLUCOSE RANDOM (BEAKER) 148 mg/dL 70-105 (test sogt=692) CALCIUM (BEAKER) (test 8.2 mg/dL 8.4-10.2 byjs=883) EGFR (BEAKER) (test 13 mL/min/1.73 sq m ESTIMATED GFR IS NOT nexy=0365) ACCURATE CREATININE CLEARANCE IN PREDICTING GLOMERULAR FILTRATION RATE. ESTIMATED GFR IS NOT APPLICABLE FOR DIALYSIS PATIENTS. [id number] 05:34:00 Test Item Value Reference Range Comments PHOSPHORUS (BEAKER) (test xvfv=429) 4.2 mg/dL 2.3-4.7 [id number] 05:34:00 Test Item Value Reference Range Comments MAGNESIUM (BEAKER) (test emug=142) 1.7 mg/dL 1.6-2.6 PROTHROMBIN [id number] 05:24:00 Test Item Value Reference Range Comments PROTIME (BEAKER) (test tzfu=976) 18.8 seconds 11.7-14.7 INR (BEAKER) (test qfha=020) 1.6 <=5.9 RECOMMENDED COUMADIN/WARFARIN INR THERAPY RANGESSTANDARD DOSE: 2.0 - 3.0 Includes: PROPHYLAXIS forvenous thrombosis, systemic embolization; TREATMENT for venous thrombosis and/or pulmonary embolus.HIGH RISK: Target INR is 2.5-3.5 for patients with mechanical heart valves.[id number] 05:05:00 Test Item Value Reference Range Comments PARTIAL THROMBOPLASTIN TIME (BEAKER) (test 96.6 seconds 22.5-36.0 fxaf=261) CBC W/PLT COUNT & AUTO [id number] 04:54:00 Test Item Value Reference Range Comments WHITE BLOOD CELL COUNT (BEAKER) (test yfts=941) 5.5 K/ L 3.5-10.5 RED BLOOD CELL COUNT (BEAKER) (test jbuv=666) 2.40 M/ L 4.63-6.08 HEMOGLOBIN (BEAKER) (test kynn=064) 7.3 GM/DL 13.7-17.5 HEMATOCRIT (BEAKER) (test xrsj=196) 23.3 % 40.1-51.0 MEAN CORPUSCULAR VOLUME (BEAKER) (test lfij=498) 97.1 fL 79.0-92.2 MEAN CORPUSCULAR HEMOGLOBIN (BEAKER) (test 30.4 pg 25.7-32.2 lier=043) MEAN CORPUSCULAR HEMOGLOBIN CONC (BEAKER) (test 31.3 GM/DL 32.3-36.5 gvmg=033) RED CELL DISTRIBUTION WIDTH (BEAKER) (test 18.9 % 11.6-14.4 scir=978) PLATELET COUNT (BEAKER) (test ftsu=490) 87 K/CU MM 150-450 MEAN PLATELET VOLUME (BEAKER) (test jmxv=833) 9.5 fL 9.4-12.4 NUCLEATED RED BLOOD CELLS (BEAKER) (test 0 /100 WBC 0-0 zkri=192) NEUTROPHILS RELATIVE PERCENT (BEAKER) (test 69 % iqaz=252) LYMPHOCYTES RELATIVE PERCENT (BEAKER) (test 18 % lulb=303) MONOCYTES RELATIVE PERCENT (BEAKER) (test 11 % ffez=511) EOSINOPHILS RELATIVE PERCENT (BEAKER) (test 1 % ysso=521) BASOPHILS RELATIVE PERCENT (BEAKER) (test 0 % wzhf=837) NEUTROPHILS ABSOLUTE COUNT (BEAKER) (test 3.77 K/ L 1.78-5.38 umjl=257) LYMPHOCYTES ABSOLUTE COUNT (BEAKER) (test 0.97 K/ L 1.32-3.57 iuop=749) MONOCYTES ABSOLUTE COUNT (BEAKER) (test euws=346) 0.62 K/ L 0.30-0.82 EOSINOPHILS ABSOLUTE COUNT (BEAKER) (test 0.07 K/ L 0.04-0.54 zaej=766) BASOPHILS ABSOLUTE COUNT (BEAKER) (test rjfq=895) 0.02 K/ L 0.01-0.08 IMMATURE GRANULOCYTES-RELATIVE PERCENT (BEAKER) 1 % 0-1 (test zfxq=2412) OCCULT BLOOD, [id number] 22:44:00 Test Item Value Reference Range Comments FECAL OCCULT BLOOD (BEAKER) (test xhvz=440) Positive Negative [id number] 21:14:00 Test Item Value Reference Range Comments PARTIAL THROMBOPLASTIN TIME (BEAKER) (test 69.1 seconds 22.5-36.0 dbnt=453) POCT-GLUCOSE [id number] 20:49:00 Test Item Value Reference Range Comments POC-GLUCOSE METER (BEAKER) 160 mg/dL 70-110 TESTED AT [address] (test yktg=2277) [place] [id number] POCT-GLUCOSE [id number] 17:59:00 Test Item Value Reference Range Comments POC-GLUCOSE METER (BEAKER) 128 mg/dL 70-110 TESTED AT [address] (test hzax=0193) [place] [address] POCT-GLUCOSE [id number] 13:31:00 Test Item Value Reference Range Comments POC-GLUCOSE METER (BEAKER) 70 mg/dL 70-110 TESTED AT [address] (test kkwa=8246) [place] [address] [id number] 13:16:00 Test Item Value Reference Range Comments PARTIAL THROMBOPLASTIN TIME (BEAKER) (test 78.3 seconds 22.5-36.0 ovyz=167) POCT-GLUCOSE [id number] 12:47:00 Test Item Value Reference Range Comments POC-GLUCOSE METER (BEAKER) 49 mg/dL 70-110 TESTED AT [address] (test nftl=9298) [place] [address] POCT-GLUCOSE [id number] 09:05:00 Test Item Value Reference Range Comments POC-GLUCOSE METER (BEAKER) 306 mg/dL 70-110 TESTED AT [address] (test svap=5898) [place] [address] OCCULT BLOOD, [id number] 06:52:00 Test Item Value Reference Range Comments FECAL OCCULT BLOOD (BEAKER) (test zeox=946) Positive Negative [id number] 05:42:00 Test Item Value Reference Range Comments PARTIAL THROMBOPLASTIN TIME (BEAKER) (test 70.5 seconds 22.5-36.0 kkem=652) IRON, TIBC, % SAT. (WITHOUT FERRITIN)[id number] 05:42:00 Test Item Value Reference Range Comments IRON (BEAKER) (test jlmt=632) 58 ug/dL 40-160 TOTAL IRON BINDING CAPACITY (BEAKER) (test 195 ug/dL 250-450 rjxt=848) IRON % SATURATION (2) (BEAKER) (test yhny=5620) 30 % 20-55 BASIC METABOLIC [id number] 03:53:00 Test Item Value Reference Range Comments SODIUM (BEAKER) (test 134 meq/L 136-145 wufk=010) POTASSIUM (BEAKER) (test 4.1 meq/L 3.5-5.1 nczd=495) CHLORIDE (BEAKER) (test 98 meq/L 98-107 jvqd=836) CO2 (BEAKER) (test 27 meq/L 22-29 sjuh=565) BLOOD UREA NITROGEN 16 mg/dL 7-21 (BEAKER) (test jtzi=845) CREATININE (BEAKER) (test 3.58 mg/dL 0.57-1.25 fdiv=041) GLUCOSE RANDOM (BEAKER) 103 mg/dL 70-105 (test xaxo=605) CALCIUM (BEAKER) (test 8.3 mg/dL 8.4-10.2 svwu=082) EGFR (BEAKER) (test 21 mL/min/1.73 sq m ESTIMATED GFR IS NOT dmnt=3953) ACCURATE CREATININE CLEARANCE IN PREDICTING GLOMERULAR FILTRATION RATE. ESTIMATED GFR IS NOT APPLICABLE FOR DIALYSIS PATIENTS. [id number] 03:51:00 Test Item Value Reference Range Comments PHOSPHORUS (BEAKER) (test jlhv=108) 3.2 mg/dL 2.3-4.7 [id number] 03:51:00 Test Item Value Reference Range Comments PARTIAL THROMBOPLASTIN TIME (BEAKER) (test 122.0 seconds 22.5-36.0 nvql=222) While on warfarin.PROTHROMBIN TIME/[id number] 03:48:00 Test Item Value Reference Range Comments PROTIME (BEAKER) (test euqb=932) 16.3 seconds 11.7-14.7 INR (BEAKER) (test sozu=764) 1.3 <=5.9 RECOMMENDED COUMADIN/WARFARIN INR THERAPY RANGESSTANDARD DOSE: 2.0 - 3.0 Includes: PROPHYLAXIS forvenous thrombosis, systemic embolization; TREATMENT for venous thrombosis and/or pulmonary embolus.HIGH RISK: Target INR is 2.5-3.5 for patients with mechanical heart valves.While on warfarin.[id number] 03:44:00 Test Item Value Reference Range Comments MAGNESIUM (BEAKER) (test enwa=823) 1.7 mg/dL 1.6-2.6 CBC W/PLT COUNT & AUTO [id number] 03:38:00 Test Item Value Reference Range Comments WHITE BLOOD CELL COUNT (BEAKER) (test xcfp=244) 6.7 K/ L 3.5-10.5 RED BLOOD CELL COUNT (BEAKER) (test jbsy=936) 2.37 M/ L 4.63-6.08 HEMOGLOBIN (BEAKER) (test gkru=387) 7.4 GM/DL 13.7-17.5 HEMATOCRIT (BEAKER) (test gkga=083) 23.0 % 40.1-51.0 MEAN CORPUSCULAR VOLUME (BEAKER) (test apyq=914) 97.0 fL 79.0-92.2 MEAN CORPUSCULAR HEMOGLOBIN (BEAKER) (test 31.2 pg 25.7-32.2 fkee=617) MEAN CORPUSCULAR HEMOGLOBIN CONC (BEAKER) (test 32.2 GM/DL 32.3-36.5 ieya=210) RED CELL DISTRIBUTION WIDTH (BEAKER) (test 19.9 % 11.6-14.4 hprn=385) PLATELET COUNT (BEAKER) (test gyds=952) 80 K/CU MM 150-450 MEAN PLATELET VOLUME (BEAKER) (test ytcj=030) 9.3 fL 9.4-12.4 NUCLEATED RED BLOOD CELLS (BEAKER) (test 0 /100 WBC 0-0 nrrk=369) NEUTROPHILS RELATIVE PERCENT (BEAKER) (test 81 % ihhb=606) LYMPHOCYTES RELATIVE PERCENT (BEAKER) (test 10 % ncvp=633) MONOCYTES RELATIVE PERCENT (BEAKER) (test 8 % sdod=803) EOSINOPHILS RELATIVE PERCENT (BEAKER) (test 0 % dqfu=276) BASOPHILS RELATIVE PERCENT (BEAKER) (test 0 % unew=976) NEUTROPHILS ABSOLUTE COUNT (BEAKER) (test 5.39 K/ L 1.78-5.38 wfjm=450) LYMPHOCYTES ABSOLUTE COUNT (BEAKER) (test 0.64 K/ L 1.32-3.57 mykd=238) MONOCYTES ABSOLUTE COUNT (BEAKER) (test wfyb=959) 0.55 K/ L 0.30-0.82 EOSINOPHILS ABSOLUTE COUNT (BEAKER) (test 0.02 K/ L 0.04-0.54 ovab=649) BASOPHILS ABSOLUTE COUNT (BEAKER) (test slfo=091) 0.02 K/ L 0.01-0.08 IMMATURE GRANULOCYTES-RELATIVE PERCENT (BEAKER) 1 % 0-1 (test wzds=2285) POCT-GLUCOSE [id number] 23:35:00 Test Item Value Reference Range Comments POC-GLUCOSE METER (BEAKER) 149 mg/dL 70-110 TESTED AT [address] (test bfvk=7809) [place] [address] [id number] 20:08:00 Test Item Value Reference Range Comments PARTIAL THROMBOPLASTIN TIME (BEAKER) (test 55.6 seconds 22.5-36.0 yfbb=139) [id number] 15:10:00 Test Item Value Reference Range Comments PARTIAL THROMBOPLASTIN TIME (BEAKER) (test 81.4 seconds 22.5-36.0 rxvn=001) POCT-GLUCOSE [id number] 11:58:00 Test Item Value Reference Range Comments POC-GLUCOSE METER (BEAKER) 124 mg/dL 70-110 TESTED AT [address] (test plfr=0494) [place] [address] RAD, CHEST, 1 VIEW, NON [id number] 08:59:00Reason for exam:->s/p mvrShould this be performed at the bedside?->YesFINAL REPORT Chest one view compared to January 24 Discussion: Left IJ line, atrial appendage clip, cardiac valve replacement noted. Mild interstitial congestion. No gross effusion or pneumothorax. IMPRESSIONS: No significant change Signed: Rhea Colindres Verified Date/Time:01/29/2018 08:59:39 Reading Location: [facility] Radiology Reading Room POCT-GLUCOSE [id number] 07:41:00 Test Item Value Reference Range Comments POC-GLUCOSE METER (BEAKER) 113 mg/dL 70-110 TESTED AT [address] (test ljyx=7533) [place] [address] [id number] 07:23:00 Test Item Value Reference Range Comments PARTIAL THROMBOPLASTIN TIME (BEAKER) (test 89.8 seconds 22.5-36.0 tjuu=241) BASIC METABOLIC [id number] 06:05:00 Test Item Value Reference Range Comments SODIUM (BEAKER) (test 134 meq/L 136-145 xbil=499) POTASSIUM (BEAKER) (test 3.9 meq/L 3.5-5.1 sbtl=507) CHLORIDE (BEAKER) (test 96 meq/L 98-107 dmgn=331) CO2 (BEAKER) (test 28 meq/L 22-29 aliw=109) BLOOD UREA NITROGEN 33 mg/dL 7-21 (BEAKER) (test kdhy=315) CREATININE (BEAKER) (test 6.43 mg/dL 0.57-1.25 dtnk=914) GLUCOSE RANDOM (BEAKER) 85 mg/dL 70-105 (test zsqh=164) CALCIUM (BEAKER) (test 8.4 mg/dL 8.4-10.2 opvk=698) EGFR (BEAKER) (test 11 mL/min/1.73 sq m ESTIMATED GFR IS NOT ytxq=4616) ACCURATE CREATININE CLEARANCE IN PREDICTING GLOMERULAR FILTRATION RATE. ESTIMATED GFR IS NOT APPLICABLE FOR DIALYSIS PATIENTS. PROTHROMBIN [id number] 05:59:00 Test Item Value Reference Range Comments PROTIME (BEAKER) (test xanr=342) 17.0 seconds 11.7-14.7 INR (BEAKER) (test gfjj=064) 1.4 <=5.9 RECOMMENDED COUMADIN/WARFARIN INR THERAPY RANGESSTANDARD DOSE: 2.0 - 3.0 Includes: PROPHYLAXIS forvenous thrombosis, systemic embolization; TREATMENT for venous thrombosis and/or pulmonary embolus.HIGH RISK: Target INR is 2.5-3.5 for patients with mechanical heart valves.While on warfarin.[id number] 05:56:00 Test Item Value Reference Range Comments PHOSPHORUS (BEAKER) (test mbgl=345) 5.3 mg/dL 2.3-4.7 [id number] 05:56:00 Test Item Value Reference Range Comments MAGNESIUM (BEAKER) (test bjlv=276) 1.9 mg/dL 1.6-2.6 CBC W/PLT COUNT & AUTO [id number] 05:38:00 Test Item Value Reference Range Comments WHITE BLOOD CELL COUNT (BEAKER) (test nfzl=876) 6.7 K/ L 3.5-10.5 RED BLOOD CELL COUNT (BEAKER) (test cszf=132) 2.40 M/ L 4.63-6.08 HEMOGLOBIN (BEAKER) (test bcke=105) 7.4 GM/DL 13.7-17.5 HEMATOCRIT (BEAKER) (test jidh=676) 23.6 % 40.1-51.0 MEAN CORPUSCULAR VOLUME (BEAKER) (test iegu=176) 98.3 fL 79.0-92.2 MEAN CORPUSCULAR HEMOGLOBIN (BEAKER) (test 30.8 pg 25.7-32.2 jzmt=685) MEAN CORPUSCULAR HEMOGLOBIN CONC (BEAKER) (test 31.4 GM/DL 32.3-36.5 iydi=770) RED CELL DISTRIBUTION WIDTH (BEAKER) (test 20.1 % 11.6-14.4 mkpl=206) PLATELET COUNT (BEAKER) (test trnk=305) 106 K/CU MM 150-450 MEAN PLATELET VOLUME (BEAKER) (test uyva=366) 9.9 fL 9.4-12.4 NUCLEATED RED BLOOD CELLS (BEAKER) (test 0 /100 WBC 0-0 utfk=116) NEUTROPHILS RELATIVE PERCENT (BEAKER) (test 77 % vlus=896) LYMPHOCYTES RELATIVE PERCENT (BEAKER) (test 14 % noaj=968) MONOCYTES RELATIVE PERCENT (BEAKER) (test 7 % pdot=915) EOSINOPHILS RELATIVE PERCENT (BEAKER) (test 1 % egdx=978) BASOPHILS RELATIVE PERCENT (BEAKER) (test 0 % kbus=666) NEUTROPHILS ABSOLUTE COUNT (BEAKER) (test 5.17 K/ L 1.78-5.38 bzhe=891) LYMPHOCYTES ABSOLUTE COUNT (BEAKER) (test 0.91 K/ L 1.32-3.57 vmtn=736) MONOCYTES ABSOLUTE COUNT (BEAKER) (test 0.50 K/ L 0.30-0.82 ajkz=988) EOSINOPHILS ABSOLUTE COUNT (BEAKER) (test 0.06 K/ L 0.04-0.54 bhxb=731) BASOPHILS ABSOLUTE COUNT (BEAKER) (test 0.01 K/ L 0.01-0.08 hxor=754) IMMATURE GRANULOCYTES-RELATIVE PERCENT (BEAKER) 1 % 0-1 (test beud=5921) [id number] 01:07:00 Test Item Value Reference Range Comments PARTIAL THROMBOPLASTIN TIME (BEAKER) (test 63.5 seconds 22.5-36.0 vhmg=556) [id number] 18:24:00 Test Item Value Reference Range Comments PARTIAL THROMBOPLASTIN TIME (BEAKER) (test 56.6 seconds 22.5-36.0 zlgq=238) POCT-GLUCOSE [id number] 18:14:00 Test Item Value Reference Range Comments POC-GLUCOSE METER (BEAKER) 101 mg/dL 70-110 TESTED AT [address] (test oaco=3021) [place] [address] [id number] 13:57:00 Test Item Value Reference Range Comments PARTIAL THROMBOPLASTIN TIME (BEAKER) (test 122.3 seconds 22.5-36.0 rmde=747) POCT-GLUCOSE [id number] 13:08:00 Test Item Value Reference Range Comments POC-GLUCOSE METER (BEAKER) 105 mg/dL 70-110 TESTED AT [address] (test kthu=3278) [place] [address] BASIC METABOLIC [id number] 04:31:00 Test Item Value Reference Range Comments SODIUM (BEAKER) (test 136 meq/L 136-145 xbof=858) POTASSIUM (BEAKER) (test 3.7 meq/L 3.5-5.1 izsh=215) CHLORIDE (BEAKER) (test 98 meq/L 98-107 dicz=932) CO2 (BEAKER) (test 27 meq/L 22-29 rhwn=429) BLOOD UREA NITROGEN 23 mg/dL 7-21 (BEAKER) (test omql=163) CREATININE (BEAKER) (test 4.45 mg/dL 0.57-1.25 cdgb=967) GLUCOSE RANDOM (BEAKER) 92 mg/dL 70-105 (test fivt=288) CALCIUM (BEAKER) (test 8.2 mg/dL 8.4-10.2 xucx=021) EGFR (BEAKER) (test 16 mL/min/1.73 sq m ESTIMATED GFR IS NOT jeby=6429) ACCURATE CREATININE CLEARANCE IN PREDICTING GLOMERULAR FILTRATION RATE. ESTIMATED GFR IS NOT APPLICABLE FOR DIALYSIS PATIENTS. [id number] 04:28:00 Test Item Value Reference Range Comments PHOSPHORUS (BEAKER) (test egzx=720) 3.9 mg/dL 2.3-4.7 [id number] 04:28:00 Test Item Value Reference Range Comments MAGNESIUM (BEAKER) (test zzyv=437) 1.7 mg/dL 1.6-2.6 HEPATIC FUNCTION [id number] 04:28:00 Test Item Value Reference Range Comments TOTAL PROTEIN (BEAKER) (test znjt=770) 5.1 gm/dL 6.0-8.3 ALBUMIN (BEAKER) (test qhfi=3094) 2.3 g/dL 3.5-5.0 BILIRUBIN TOTAL (BEAKER) (test nazg=094) 2.1 mg/dL 0.2-1.2 BILIRUBIN DIRECT (BEAKER) (test uzug=029) 1.7 mg/dL 0.1-0.5 ALKALINE PHOSPHATASE (BEAKER) (test hxzv=259) 65 U/L 40-150 AST (SGOT) (BEAKER) (test rktv=129) 31 U/L 5-34 ALT (SGPT) (BEAKER) (test dclx=484) 33 U/L 6-55 [id number] 04:20:00 Test Item Value Reference Range Comments PARTIAL THROMBOPLASTIN TIME (BEAKER) (test 106.2 seconds 22.5-36.0 csoa=865) While on warfarin.PROTHROMBIN TIME/[id number] 04:15:00 Test Item Value Reference Range Comments PROTIME (BEAKER) (test ilmq=819) 18.4 seconds 11.7-14.7 INR (BEAKER) (test uwfz=257) 1.5 <=5.9 RECOMMENDED COUMADIN/WARFARIN INR THERAPY RANGESSTANDARD DOSE: 2.0 - 3.0 Includes: PROPHYLAXIS forvenous thrombosis, systemic embolization; TREATMENT for venous thrombosis and/or pulmonary embolus.HIGH RISK: Target INR is 2.5-3.5 for patients with mechanical heart valves.While on warfarin.CBC W/PLT COUNT &amp ; AUTO [id number] 04:05:00 Test Item Value Reference Range Comments WHITE BLOOD CELL COUNT (BEAKER) (test gsax=777) 8.0 K/ L 3.5-10.5 RED BLOOD CELL COUNT (BEAKER) (test enym=110) 2.27 M/ L 4.63-6.08 HEMOGLOBIN (BEAKER) (test zxgf=191) 7.1 GM/DL 13.7-17.5 HEMATOCRIT (BEAKER) (test wrau=421) 22.1 % 40.1-51.0 MEAN CORPUSCULAR VOLUME (BEAKER) (test pdlz=721) 97.4 fL 79.0-92.2 MEAN CORPUSCULAR HEMOGLOBIN (BEAKER) (test 31.3 pg 25.7-32.2 raml=558) MEAN CORPUSCULAR HEMOGLOBIN CONC (BEAKER) (test 32.1 GM/DL 32.3-36.5 mxlm=635) RED CELL DISTRIBUTION WIDTH (BEAKER) (test 20.5 % 11.6-14.4 jrto=199) PLATELET COUNT (BEAKER) (test ugwl=381) 96 K/CU MM 150-450 MEAN PLATELET VOLUME (BEAKER) (test jlry=616) 10.1 fL 9.4-12.4 NUCLEATED RED BLOOD CELLS (BEAKER) (test 0 /100 WBC 0-0 psvx=363) NEUTROPHILS RELATIVE PERCENT (BEAKER) (test 78 % exfi=734) LYMPHOCYTES RELATIVE PERCENT (BEAKER) (test 12 % hpza=328) MONOCYTES RELATIVE PERCENT (BEAKER) (test 8 % tjfe=594) EOSINOPHILS RELATIVE PERCENT (BEAKER) (test 1 % tiiu=719) BASOPHILS RELATIVE PERCENT (BEAKER) (test 0 % unxu=108) NEUTROPHILS ABSOLUTE COUNT (BEAKER) (test 6.25 K/ L 1.78-5.38 zzwz=554) LYMPHOCYTES ABSOLUTE COUNT (BEAKER) (test 0.96 K/ L 1.32-3.57 zeoe=308) MONOCYTES ABSOLUTE COUNT (BEAKER) (test kdbq=322) 0.60 K/ L 0.30-0.82 EOSINOPHILS ABSOLUTE COUNT (BEAKER) (test 0.04 K/ L 0.04-0.54 nfqv=906) BASOPHILS ABSOLUTE COUNT (BEAKER) (test xwtf=803) 0.02 K/ L 0.01-0.08 IMMATURE GRANULOCYTES-RELATIVE PERCENT (BEAKER) 2 % 0-1 (test xlaj=9487) POCT-GLUCOSE [id number] 00:29:00 Test Item Value Reference Range Comments POC-GLUCOSE METER (BEAKER) 119 mg/dL 70-110 TESTED AT [facility] [address] (test bvoh=7344) [facility] [address] [id number] 00:24:00 Test Item Value Reference Range Comments PARTIAL THROMBOPLASTIN TIME (BEAKER) (test 72.4 seconds 22.5-36.0 kwzz=556) POCT-GLUCOSE [id number] 18:33:00 Test Item Value Reference Range Comments POC-GLUCOSE METER (BEAKER) 158 mg/dL 70-110 TESTED AT [address] (test nnoe=9197) [facility] [address] [id number] 18:22:00 Test Item Value Reference Range Comments PARTIAL THROMBOPLASTIN TIME (BEAKER) (test 78.6 seconds 22.5-36.0 bpih=528) POCT-GLUCOSE [id number] 12:20:00 Test Item Value Reference Range Comments POC-GLUCOSE METER (BEAKER) 110 mg/dL 70-110 TESTED AT [address] (test fsfg=0367) [facility] [address] [id number] 12:04:00 Test Item Value Reference Range Comments PARTIAL THROMBOPLASTIN TIME (BEAKER) (test 98.0 seconds 22.5-36.0 yuap=522) [id number] 04:11:00 Test Item Value Reference Range Comments PROTIME (BEAKER) (test obip=889) 15.2 seconds 11.7-14.7 INR (BEAKER) (test tdso=080) 1.2 <=5.9 PARTIAL THROMBOPLASTIN TIME (BEAKER) (test 67.9 seconds 22.5-36.0 fhho=248) RECOMMENDED COUMADIN/WARFARIN INR THERAPY RANGESSTANDARD DOSE: 2.0 - 3.0 Includes: PROPHYLAXIS forvenous thrombosis, systemic embolization; TREATMENT for venous thrombosis and/or pulmonary embolus.HIGH RISK: Target INR is 2.5-3.5 for patients with mechanical heart valves.While on warfarin.While on warfarin.PROTHROMBIN [id number] 04:10:00 Test Item Value Reference Range Comments PROTIME (BEAKER) (test hker=753) 15.2 seconds 11.7-14.7 INR (BEAKER) (test qqje=589) 1.2 <=5.9 RECOMMENDED COUMADIN/WARFARIN INR THERAPY RANGESSTANDARD DOSE: 2.0 - 3.0 Includes: PROPHYLAXIS forvenous thrombosis, systemic embolization; TREATMENT for venous thrombosis and/or pulmonary embolus.HIGH RISK: Target INR is 2.5-3.5 for patients with mechanical heart valves.BASIC METABOLIC [id number] 03:53: 00 Test Item Value Reference Range Comments SODIUM (BEAKER) (test 134 meq/L 136-145 zyll=232) POTASSIUM (BEAKER) (test 3.9 meq/L 3.5-5.1 igfr=316) CHLORIDE (BEAKER) (test 96 meq/L 98-107 rpdn=378) CO2 (BEAKER) (test 23 meq/L 22-29 wklp=286) BLOOD UREA NITROGEN 52 mg/dL 7-21 (BEAKER) (test xnoj=273) CREATININE (BEAKER) (test 6.75 mg/dL 0.57-1.25 zrxi=583) GLUCOSE RANDOM (BEAKER) 107 mg/dL 70-105 (test yrix=413) CALCIUM (BEAKER) (test 8.7 mg/dL 8.4-10.2 qwgb=933) EGFR (BEAKER) (test 10 mL/min/1.73 sq m ESTIMATED GFR IS NOT dysh=9949) ACCURATE CREATININE CLEARANCE IN PREDICTING GLOMERULAR FILTRATION RATE. ESTIMATED GFR IS NOT APPLICABLE FOR DIALYSIS PATIENTS. CBC W/PLT COUNT & AUTO [id number] 03:50:00 Test Item Value Reference Range Comments WHITE BLOOD CELL COUNT (BEAKER) (test hesa=447) 10.5 K/ L 3.5-10.5 RED BLOOD CELL COUNT (BEAKER) (test sbza=221) 2.55 M/ L 4.63-6.08 HEMOGLOBIN (BEAKER) (test orcp=389) 8.0 GM/DL 13.7-17.5 HEMATOCRIT (BEAKER) (test htrg=074) 24.6 % 40.1-51.0 MEAN CORPUSCULAR VOLUME (BEAKER) (test iodh=533) 96.5 fL 79.0-92.2 MEAN CORPUSCULAR HEMOGLOBIN (BEAKER) (test 31.4 pg 25.7-32.2 xzzn=634) MEAN CORPUSCULAR HEMOGLOBIN CONC (BEAKER) (test 32.5 GM/DL 32.3-36.5 qpgp=240) RED CELL DISTRIBUTION WIDTH (BEAKER) (test 19.8 % 11.6-14.4 zutu=833) PLATELET COUNT (BEAKER) (test pkhd=904) 141 K/CU MM 150-450 MEAN PLATELET VOLUME (BEAKER) (test ttkh=883) 9.6 fL 9.4-12.4 NUCLEATED RED BLOOD CELLS (BEAKER) (test 0 /100 WBC 0-0 iyab=733) NEUTROPHILS RELATIVE PERCENT (BEAKER) (test 80 % bjeb=732) LYMPHOCYTES RELATIVE PERCENT (BEAKER) (test 11 % iyly=087) MONOCYTES RELATIVE PERCENT (BEAKER) (test 7 % sthr=442) EOSINOPHILS RELATIVE PERCENT (BEAKER) (test 1 % bwgz=010) BASOPHILS RELATIVE PERCENT (BEAKER) (test 0 % bdgo=816) NEUTROPHILS ABSOLUTE COUNT (BEAKER) (test 8.37 K/ L 1.78-5.38 wbxw=208) LYMPHOCYTES ABSOLUTE COUNT (BEAKER) (test 1.11 K/ L 1.32-3.57 shkk=651) MONOCYTES ABSOLUTE COUNT (BEAKER) (test 0.73 K/ L 0.30-0.82 abzv=306) EOSINOPHILS ABSOLUTE COUNT (BEAKER) (test 0.07 K/ L 0.04-0.54 syce=318) BASOPHILS ABSOLUTE COUNT (BEAKER) (test 0.02 K/ L 0.01-0.08 apiq=490) IMMATURE GRANULOCYTES-RELATIVE PERCENT (BEAKER) 2 % 0-1 (test vgdr=0821) [id number] 03:45:00 Test Item Value Reference Range Comments PHOSPHORUS (BEAKER) (test ggho=286) 4.7 mg/dL 2.3-4.7 [id number] 03:45:00 Test Item Value Reference Range Comments MAGNESIUM (BEAKER) (test qevk=296) 2.0 mg/dL 1.6-2.6 HEPATIC FUNCTION [id number] 03:45:00 Test Item Value Reference Range Comments TOTAL PROTEIN (BEAKER) (test mbge=953) 5.5 gm/dL 6.0-8.3 ALBUMIN (BEAKER) (test ivqf=1319) 2.4 g/dL 3.5-5.0 BILIRUBIN TOTAL (BEAKER) (test ampx=539) 2.4 mg/dL 0.2-1.2 BILIRUBIN DIRECT (BEAKER) (test umpb=484) 2.0 mg/dL 0.1-0.5 ALKALINE PHOSPHATASE (BEAKER) (test fpbr=159) 69 U/L 40-150 AST (SGOT) (BEAKER) (test lejw=261) 34 U/L 5-34 ALT (SGPT) (BEAKER) (test xvqj=300) 36 U/L 6-55 [id number] 22:16:00 Test Item Value Reference Range Comments PARTIAL THROMBOPLASTIN TIME (BEAKER) (test 60.7 seconds 22.5-36.0 ciqh=998) POCT-GLUCOSE [id number] 18:32:00 Test Item Value Reference Range Comments POC-GLUCOSE METER (BEAKER) 125 mg/dL 70-110 TESTED AT [facility] [address] (test lbiv=3392) [facility] [address] CBC (HEMOGRAM ONLY)2018-01-26 17:21:00 Test Item Value Reference Range Comments WHITE BLOOD CELL COUNT (BEAKER) (test xyon=489) 10.2 K/ L 3.5-10.5 RED BLOOD CELL COUNT (BEAKER) (test sdag=098) 2.57 M/ L 4.63-6.08 HEMOGLOBIN (BEAKER) (test vbxj=433) 8.1 GM/DL 13.7-17.5 HEMATOCRIT (BEAKER) (test cvvn=814) 24.8 % 40.1-51.0 MEAN CORPUSCULAR VOLUME (BEAKER) (test igpi=844) 96.5 fL 79.0-92.2 MEAN CORPUSCULAR HEMOGLOBIN (BEAKER) (test 31.5 pg 25.7-32.2 rixx=642) MEAN CORPUSCULAR HEMOGLOBIN CONC (BEAKER) (test 32.7 GM/DL 32.3-36.5 fxzm=550) RED CELL DISTRIBUTION WIDTH (BEAKER) (test 19.8 % 11.6-14.4 pxbp=012) PLATELET COUNT (BEAKER) (test orzv=828) 148 K/CU MM 150-450 MEAN PLATELET VOLUME (BEAKER) (test dyfp=239) 9.4 fL 9.4-12.4 NUCLEATED RED BLOOD CELLS (BEAKER) (test 0 /100 WBC 0-0 sfdb=888) BASIC METABOLIC [id number] 07:16:00 Test Item Value Reference Range Comments SODIUM (BEAKER) (test 137 meq/L 136-145 tnhs=804) POTASSIUM (BEAKER) (test 3.6 meq/L 3.5-5.1 htza=907) CHLORIDE (BEAKER) (test 97 meq/L 98-107 cigr=952) CO2 (BEAKER) (test 27 meq/L 22-29 ancz=267) BLOOD UREA NITROGEN 44 mg/dL 7-21 (BEAKER) (test bwva=162) CREATININE (BEAKER) (test 5.57 mg/dL 0.57-1.25 ymlm=325) GLUCOSE RANDOM (BEAKER) 100 mg/dL 70-105 (test mhyo=315) CALCIUM (BEAKER) (test 8.6 mg/dL 8.4-10.2 arlk=450) EGFR (BEAKER) (test 13 mL/min/1.73 sq m ESTIMATED GFR IS NOT ljhw=6225) ACCURATE CREATININE CLEARANCE IN PREDICTING GLOMERULAR FILTRATION RATE. ESTIMATED GFR IS NOT APPLICABLE FOR DIALYSIS PATIENTS. [id number] 07:13:00 Test Item Value Reference Range Comments PHOSPHORUS (BEAKER) (test zekm=838) 4.3 mg/dL 2.3-4.7 [id number] 07:13:00 Test Item Value Reference Range Comments MAGNESIUM (BEAKER) (test sxlo=597) 2.0 mg/dL 1.6-2.6 HEPATIC FUNCTION [id number] 07:13:00 Test Item Value Reference Range Comments TOTAL PROTEIN (BEAKER) (test zonv=887) 5.4 gm/dL 6.0-8.3 ALBUMIN (BEAKER) (test gcri=1221) 2.4 g/dL 3.5-5.0 BILIRUBIN TOTAL (BEAKER) (test jepr=761) 2.6 mg/dL 0.2-1.2 BILIRUBIN DIRECT (BEAKER) (test fxqz=497) 2.2 mg/dL 0.1-0.5 ALKALINE PHOSPHATASE (BEAKER) (test lznc=212) 65 U/L 40-150 AST (SGOT) (BEAKER) (test hznb=106) 32 U/L 5-34 ALT (SGPT) (BEAKER) (test hzas=961) 37 U/L 6-55 [id number] 07:12:00 Test Item Value Reference Range Comments PROTIME (BEAKER) (test wjfh=763) 14.2 seconds 11.7-14.7 INR (BEAKER) (test wsir=137) 1.1 <=5.9 PARTIAL THROMBOPLASTIN TIME (BEAKER) (test 66.6 seconds 22.5-36.0 sufq=674) RECOMMENDED COUMADIN/WARFARIN INR THERAPY RANGESSTANDARD DOSE: 2.0 - 3.0 Includes: PROPHYLAXIS forvenous thrombosis, systemic embolization; TREATMENT for venous thrombosis and/or pulmonary embolus.HIGH RISK: Target INR is 2.5-3.5 for patients with mechanical heart valves.CBC W/PLT COUNT & AUTO [id number] 06:58:00 Test Item Value Reference Range Comments WHITE BLOOD CELL COUNT (BEAKER) (test dlty=171) 9.5 K/ L 3.5-10.5 RED BLOOD CELL COUNT (BEAKER) (test iupw=966) 2.50 M/ L 4.63-6.08 HEMOGLOBIN (BEAKER) (test jvgg=507) 7.8 GM/DL 13.7-17.5 HEMATOCRIT (BEAKER) (test zbkk=415) 24.2 % 40.1-51.0 MEAN CORPUSCULAR VOLUME (BEAKER) (test ehgz=903) 96.8 fL 79.0-92.2 MEAN CORPUSCULAR HEMOGLOBIN (BEAKER) (test 31.2 pg 25.7-32.2 cfff=030) MEAN CORPUSCULAR HEMOGLOBIN CONC (BEAKER) (test 32.2 GM/DL 32.3-36.5 dtln=080) RED CELL DISTRIBUTION WIDTH (BEAKER) (test 19.8 % 11.6-14.4 tyaw=604) PLATELET COUNT (BEAKER) (test tflt=751) 142 K/CU MM 150-450 MEAN PLATELET VOLUME (BEAKER) (test jgvx=775) 9.9 fL 9.4-12.4 NUCLEATED RED BLOOD CELLS (BEAKER) (test 0 /100 WBC 0-0 cfpt=638) NEUTROPHILS RELATIVE PERCENT (BEAKER) (test 81 % yhay=034) LYMPHOCYTES RELATIVE PERCENT (BEAKER) (test 9 % ryzw=663) MONOCYTES RELATIVE PERCENT (BEAKER) (test 7 % kpns=442) EOSINOPHILS RELATIVE PERCENT (BEAKER) (test 1 % lqvr=450) BASOPHILS RELATIVE PERCENT (BEAKER) (test 0 % kcgw=006) NEUTROPHILS ABSOLUTE COUNT (BEAKER) (test 7.74 K/ L 1.78-5.38 cbin=406) LYMPHOCYTES ABSOLUTE COUNT (BEAKER) (test 0.89 K/ L 1.32-3.57 wsby=570) MONOCYTES ABSOLUTE COUNT (BEAKER) (test 0.62 K/ L 0.30-0.82 gaix=294) EOSINOPHILS ABSOLUTE COUNT (BEAKER) (test 0.06 K/ L 0.04-0.54 qsbe=480) BASOPHILS ABSOLUTE COUNT (BEAKER) (test 0.01 K/ L 0.01-0.08 eftb=504) IMMATURE GRANULOCYTES-RELATIVE PERCENT (BEAKER) 2 % 0-1 (test mocw=8375) BLOOD [id number] 00:00:00 Test Item Value Reference Range Comments CULTURE (BEAKER) (test ymho=1239) No growth in 5 days BLOOD [id number] 00:00:00 Test Item Value Reference Range Comments CULTURE (BEAKER) (test byen=4145) No growth in 5 days POCT-GLUCOSE [id number] 23:37:00 Test Item Value Reference Range Comments POC-GLUCOSE METER (BEAKER) 87 mg/dL 70-110 TESTED AT [address] (test zpti=2753) [place] [address] [id number] 23:06:00 Test Item Value Reference Range Comments PARTIAL THROMBOPLASTIN TIME (BEAKER) (test 81.8 seconds 22.5-36.0 nquz=790) POCT-GLUCOSE [id number] 20:42:00 Test Item Value Reference Range Comments POC-GLUCOSE METER (BEAKER) 193 mg/dL 70-110 TESTED AT [address] (test wavq=7722) [place] [address] HEMOGLOBIN AND [id number] 17:40:00 Test Item Value Reference Range Comments HEMOGLOBIN (BEAKER) (test zbue=719) 8.4 GM/DL 13.7-17.5 HEMATOCRIT (BEAKER) (test wvcq=630) 25.4 % 40.1-51.0 [id number] 13:06:00 Test Item Value Reference Range Comments PARTIAL THROMBOPLASTIN TIME (BEAKER) (test 61.4 seconds 22.5-36.0 gowk=547) POCT-GLUCOSE [id number] 12:56:00 Test Item Value Reference Range Comments POC-GLUCOSE METER (BEAKER) 116 mg/dL 70-110 TESTED AT [facility] [address] (test ukbp=3743) [facility] [address] [id number] 06:43:00 Test Item Value Reference Range Comments FERRITIN (BEAKER) (test mumm=790) 2521 ng/mL 5-275 IRON, TIBC, % SAT. (WITHOUT FERRITIN)2018-01-25 05:51:00 Test Item Value Reference Range Comments IRON (BEAKER) (test hono=091) 61 ug/dL 40-160 TOTAL IRON BINDING CAPACITY (BEAKER) (test 165 ug/dL 250-450 tpyl=384) IRON % SATURATION (2) (BEAKER) (test mhas=4552) 37 % 20-55 [id number] 05:32:00 Test Item Value Reference Range Comments PARTIAL THROMBOPLASTIN TIME (BEAKER) (test 63.7 seconds 22.5-36.0 owcc=526) BASIC METABOLIC [id number] 05:03:00 Test Item Value Reference Range Comments SODIUM (BEAKER) (test 140 meq/L 136-145 ikuk=528) POTASSIUM (BEAKER) (test 3.8 meq/L 3.5-5.1 lbao=458) CHLORIDE (BEAKER) (test 99 meq/L 98-107 ewci=715) CO2 (BEAKER) (test 28 meq/L 22-29 jqni=723) BLOOD UREA NITROGEN 32 mg/dL 7-21 (BEAKER) (test xigw=234) CREATININE (BEAKER) (test 3.87 mg/dL 0.57-1.25 vpee=299) GLUCOSE RANDOM (BEAKER) 145 mg/dL 70-105 (test edxf=403) CALCIUM (BEAKER) (test 8.5 mg/dL 8.4-10.2 qfnk=264) EGFR (BEAKER) (test 19 mL/min/1.73 sq m ESTIMATED GFR IS NOT twht=6569) ACCURATE CREATININE CLEARANCE IN PREDICTING GLOMERULAR FILTRATION RATE. ESTIMATED GFR IS NOT APPLICABLE FOR DIALYSIS PATIENTS. HEPATIC FUNCTION [id number] 05:00:00 Test Item Value Reference Range Comments TOTAL PROTEIN (BEAKER) (test tqqn=383) 5.3 gm/dL 6.0-8.3 ALBUMIN (BEAKER) (test ujfy=3255) 2.3 g/dL 3.5-5.0 BILIRUBIN TOTAL (BEAKER) (test xgyt=014) 3.0 mg/dL 0.2-1.2 BILIRUBIN DIRECT (BEAKER) (test zcgl=407) 2.5 mg/dL 0.1-0.5 ALKALINE PHOSPHATASE (BEAKER) (test baso=903) 72 U/L 40-150 AST (SGOT) (BEAKER) (test avna=488) 34 U/L 5-34 ALT (SGPT) (BEAKER) (test abcj=081) 41 U/L 6-55 [id number] 04:40:00 Test Item Value Reference Range Comments PROTIME (BEAKER) (test fqlv=597) 14.5 seconds 11.7-14.7 INR (BEAKER) (test nhqt=594) 1.1 <=5.9 PARTIAL THROMBOPLASTIN TIME (BEAKER) (test 64.1 seconds 22.5-36.0 kbkt=488) RECOMMENDED COUMADIN/WARFARIN INR THERAPY RANGESSTANDARD DOSE: 2.0 - 3.0 Includes: PROPHYLAXIS forvenous thrombosis, systemic embolization; TREATMENT for venous thrombosis and/or pulmonary embolus.HIGH RISK: Target INR is 2.5-3.5 for patients with mechanical heart valves.CBC (HEMOGRAM ONLY)2018-01-25 04:27:00 Test Item Value Reference Range Comments WHITE BLOOD CELL COUNT (BEAKER) (test vwpq=135) 11.7 K/ L 3.5-10.5 RED BLOOD CELL COUNT (BEAKER) (test husn=322) 2.55 M/ L 4.63-6.08 HEMOGLOBIN (BEAKER) (test bqwo=239) 7.9 GM/DL 13.7-17.5 HEMATOCRIT (BEAKER) (test zlfp=462) 24.6 % 40.1-51.0 MEAN CORPUSCULAR VOLUME (BEAKER) (test pcgt=553) 96.5 fL 79.0-92.2 MEAN CORPUSCULAR HEMOGLOBIN (BEAKER) (test 31.0 pg 25.7-32.2 yijk=176) MEAN CORPUSCULAR HEMOGLOBIN CONC (BEAKER) (test 32.1 GM/DL 32.3-36.5 ruzx=426) RED CELL DISTRIBUTION WIDTH (BEAKER) (test 20.1 % 11.6-14.4 sray=061) PLATELET COUNT (BEAKER) (test ryqi=704) 123 K/CU MM 150-450 MEAN PLATELET VOLUME (BEAKER) (test ylus=951) 10.1 fL 9.4-12.4 NUCLEATED RED BLOOD CELLS (BEAKER) (test 0 /100 WBC 0-0 uvge=322) POCT-GLUCOSE [id number] 00:30:00 Test Item Value Reference Range Comments POC-GLUCOSE METER (BEAKER) 112 mg/dL 70-110 TESTED AT [facility] [address] (test vpvo=9454) [place] [address] CBC W/PLT COUNT & AUTO [id number] 19:16:00 Test Item Value Reference Range Comments WHITE BLOOD CELL COUNT (BEAKER) (test hocx=415) 15.7 K/ L 3.5-10.5 RED BLOOD CELL COUNT (BEAKER) (test lete=152) 2.89 M/ L 4.63-6.08 HEMOGLOBIN (BEAKER) (test nltk=099) 9.1 GM/DL 13.7-17.5 HEMATOCRIT (BEAKER) (test wsce=397) 27.3 % 40.1-51.0 MEAN CORPUSCULAR VOLUME (BEAKER) (test ogjo=180) 94.5 fL 79.0-92.2 MEAN CORPUSCULAR HEMOGLOBIN (BEAKER) (test 31.5 pg 25.7-32.2 ncwo=810) MEAN CORPUSCULAR HEMOGLOBIN CONC (BEAKER) (test 33.3 GM/DL 32.3-36.5 rnsl=588) RED CELL DISTRIBUTION WIDTH (BEAKER) (test 19.9 % 11.6-14.4 lqtz=835) PLATELET COUNT (BEAKER) (test djgm=721) 149 K/CU MM 150-450 MEAN PLATELET VOLUME (BEAKER) (test pnfe=716) 9.6 fL 9.4-12.4 NUCLEATED RED BLOOD CELLS (BEAKER) (test 0 /100 WBC 0-0 bjhz=431) NEUTROPHILS RELATIVE PERCENT (BEAKER) (test 88 % tjdx=220) LYMPHOCYTES RELATIVE PERCENT (BEAKER) (test 5 % qnxc=224) MONOCYTES RELATIVE PERCENT (BEAKER) (test 6 % xfod=776) EOSINOPHILS RELATIVE PERCENT (BEAKER) (test 0 % ocir=945) BASOPHILS RELATIVE PERCENT (BEAKER) (test 0 % tcue=298) NEUTROPHILS ABSOLUTE COUNT (BEAKER) (test 13.71 K/ L 1.78-5.38 wveo=099) LYMPHOCYTES ABSOLUTE COUNT (BEAKER) (test 0.76 K/ L 1.32-3.57 ahwf=642) MONOCYTES ABSOLUTE COUNT (BEAKER) (test 0.90 K/ L 0.30-0.82 epoy=630) EOSINOPHILS ABSOLUTE COUNT (BEAKER) (test 0.07 K/ L 0.04-0.54 nchk=669) BASOPHILS ABSOLUTE COUNT (BEAKER) (test 0.02 K/ L 0.01-0.08 vnkm=909) IMMATURE GRANULOCYTES-RELATIVE PERCENT (BEAKER) 1 % 0-1 (test tttp=4849) POCT-GLUCOSE [id number] 18:27:00 Test Item Value Reference Range Comments POC-GLUCOSE METER (BEAKER) 102 mg/dL 70-110 TESTED AT [place] [id number] (test oxta=7918) [place] [address] POCT-GLUCOSE [id number] 13:01:00 Test Item Value Reference Range Comments POC-GLUCOSE METER (BEAKER) 119 mg/dL 70-110 TESTED AT [address] (test vbfg=8070) [place] [address] RAD, CHEST, 1 VIEW, NON [id number] 10:59:00Reason for exam:->ptxShould this be performed at the bedside?->YesFINAL REPORT Portable chest CLINICAL HISTORY: Pneumothorax Comparison: January 23, 2018. FINDINGS : The cardiac silhouette is enlarged. The patient is status post sternotomy and valve replacement with a left-sided jugular line and nasogastric tube in place. The right-sided chest tube has been removed. Increased interstitial and patchy air space opacities are seen. No pleural effusion or pneumothorax noted. Degenerative changes are noted IMPRESSION: Removal of right-sided chest tube. Mild increase in pulmonary opacities. Signed: Sarah Beth Mejia MDReport Verified Date/Time: 01/24/2018 10:59:29 Reading Location: [facility] Diagnostic Imaging Reading Room - [place] [address] BRONCHIAL CULTURE + GRAM [id number] 08:53:00 Test Item Value Reference Range Comments CULTURE (BEAKER) (test 2+ Normal respiratory pete wuuq=6652) present GRAM STAIN RESULT (BEAKER) 4+ White blood cells seen (test chet=0667) GRAM STAIN RESULT (BEAKER) No organisms seen (test xqpi=44872) POCT-GLUCOSE [id number] 06:28:00 Test Item Value Reference Range Comments POC-GLUCOSE METER (BEAKER) 119 mg/dL 70-110 TESTED AT [facility] [address] (test pfzr=6999) [facility] [address] BASIC METABOLIC [id number] 04:41:00 Test Item Value Reference Range Comments SODIUM (BEAKER) (test 138 meq/L 136-145 sirs=867) POTASSIUM (BEAKER) (test 4.1 meq/L 3.5-5.1 pifs=301) CHLORIDE (BEAKER) (test 98 meq/L 98-107 mzdv=338) CO2 (BEAKER) (test 24 meq/L 22-29 aafd=997) BLOOD UREA NITROGEN 59 mg/dL 7-21 (BEAKER) (test glxv=329) CREATININE (BEAKER) (test 5.65 mg/dL 0.57-1.25 fmwf=496) GLUCOSE RANDOM (BEAKER) 118 mg/dL 70-105 (test aolz=417) CALCIUM (BEAKER) (test 8.8 mg/dL 8.4-10.2 dzla=742) EGFR (BEAKER) (test 13 mL/min/1.73 sq m ESTIMATED GFR IS NOT wvbk=0877) ACCURATE CREATININE CLEARANCE IN PREDICTING GLOMERULAR FILTRATION RATE. ESTIMATED GFR IS NOT APPLICABLE FOR DIALYSIS PATIENTS. Specimen slightly ictericCBC (HEMOGRAM ONLY)2018-01-24 04:34:00 Test Item Value Reference Range Comments WHITE BLOOD CELL COUNT (BEAKER) (test dgcw=219) 13.4 K/ L 3.5-10.5 RED BLOOD CELL COUNT (BEAKER) (test lnoi=229) 2.40 M/ L 4.63-6.08 HEMOGLOBIN (BEAKER) (test drsl=562) 7.4 GM/DL 13.7-17.5 HEMATOCRIT (BEAKER) (test zjnn=040) 22.8 % 40.1-51.0 MEAN CORPUSCULAR VOLUME (BEAKER) (test uiyw=924) 95.0 fL 79.0-92.2 MEAN CORPUSCULAR HEMOGLOBIN (BEAKER) (test 30.8 pg 25.7-32.2 xspa=121) MEAN CORPUSCULAR HEMOGLOBIN CONC (BEAKER) (test 32.5 GM/DL 32.3-36.5 owuk=342) RED CELL DISTRIBUTION WIDTH (BEAKER) (test 19.8 % 11.6-14.4 zwbk=555) PLATELET COUNT (BEAKER) (test djzw=493) 107 K/CU MM 150-450 MEAN PLATELET VOLUME (BEAKER) (test itvl=031) 10.6 fL 9.4-12.4 NUCLEATED RED BLOOD CELLS (BEAKER) (test 0 /100 WBC 0-0 djix=471) [id number] 04:21:00 Test Item Value Reference Range Comments MAGNESIUM (BEAKER) (test mpxa=822) 2.0 mg/dL 1.6-2.6 HEPATIC FUNCTION [id number] 04:21:00 Test Item Value Reference Range Comments TOTAL PROTEIN (BEAKER) (test dehw=488) 5.2 gm/dL 6.0-8.3 ALBUMIN (BEAKER) (test peau=4535) 2.3 g/dL 3.5-5.0 BILIRUBIN TOTAL (BEAKER) (test psia=323) 3.9 mg/dL 0.2-1.2 BILIRUBIN DIRECT (BEAKER) (test eaof=956) 3.1 mg/dL 0.1-0.5 ALKALINE PHOSPHATASE (BEAKER) (test lnua=308) 69 U/L 40-150 AST (SGOT) (BEAKER) (test ldye=360) 36 U/L 5-34 ALT (SGPT) (BEAKER) (test zrnb=837) 36 U/L 6-55 Specimen slightly [id number] 04:13:00 Test Item Value Reference Range Comments PARTIAL THROMBOPLASTIN TIME (BEAKER) (test 72.1 seconds 22.5-36.0 kugk=113) BLOOD GAS, [id number] 04:13:00 Test Item Value Reference Range Comments PH ARTERIAL (BEAKER) (test zfah=001) 7.39 7.35-7.45 PCO2 ARTERIAL (BEAKER) (test piea=219) 48 mmHg 35-45 PO2 ARTERIAL (BEAKER) (test rxyt=211) 151 mmHg 80-90 O2 SATURATION ARTERIAL (BEAKER) (test yvqs=856) 98.9 % 96.0-97.0 HCO3 ARTERIAL (BEAKER) (test qnzk=767) 28 mmol/L 21-29 BASE EXCESS ARTERIAL (BEAKER) (test zkok=783) 3.1 mmol/L -2.0-3.0 PATIENT TEMPERATURE (BEAKER) (test agza=8983) 37.0 C FIO2 (BEAKER) (test fwwe=9119) 100.0 % POCT-GLUCOSE [id number] 00:08:00 Test Item Value Reference Range Comments POC-GLUCOSE METER (BEAKER) 150 mg/dL 70-110 TESTED AT [address] (test mome=8665) [place] [id number] POCT-GLUCOSE [id number] 18:45:00 Test Item Value Reference Range Comments POC-GLUCOSE METER (BEAKER) 162 mg/dL 70-110 TESTED AT [address] (test eidd=8975) [facility] [address] POCT-GLUCOSE [id number] 13:14:00 Test Item Value Reference Range Comments POC-GLUCOSE METER (BEAKER) 176 mg/dL 70-110 TESTED AT [address] (test pnej=5555) [place] [address] POCT-GLUCOSE [id number] 10:44:00 Test Item Value Reference Range Comments POC-GLUCOSE METER (BEAKER) 146 mg/dL 70-110 TESTED AT [address] (test ymkf=5225) [facility] [address] BLOOD GAS, [id number] 10:32:00 Test Item Value Reference Range Comments PH ARTERIAL (BEAKER) (test ebbg=677) 7.44 7.35-7.45 PCO2 ARTERIAL (BEAKER) (test zhse=187) 45 mmHg 35-45 PO2 ARTERIAL (BEAKER) (test qdrk=042) 145 mmHg 80-90 O2 SATURATION ARTERIAL (BEAKER) (test gsyy=605) 98.9 % 96.0-97.0 HCO3 ARTERIAL (BEAKER) (test jlek=201) 30 mmol/L 21-29 BASE EXCESS ARTERIAL (BEAKER) (test uvsf=033) 4.6 mmol/L -2.0-3.0 PATIENT TEMPERATURE (BEAKER) (test xswp=6854) 36.5 C FIO2 (BEAKER) (test rrlw=0205) 40.0 % RAD, CHEST, 1 VIEW, NON [id number] 09:14:00Reason for exam:->ptxShould this be performed at the bedside?->YesFINAL REPORT COMPARISON: 01/22/2018 TECHNIQUE: Single view of the chest FINDINGS: Bilateral interstitial and airspace opacities again seen. Small pleural effusions are suspected. No gross new lung parenchymal changes. There is a tiny right apical pneumothorax. Support lines and tubes are stable. IMPRESSION: No significant interval change. Signed: Kyle Rome MDReport Verified Date/Time: 01/23/2018 09 :14:48 Reading Location: [facility] Radiology Reading Room BLOOD [id number] 08: 09:00 Test Item Value Reference Range Comments CULTURE (BEAKER) From Aerobic Bottle Only (test kcae=8655) Lactobacillus species GRAM STAIN RESULT From aerobic bottle (BEAKER) (test only: gram positive tbwi=6410) rods NOT DETECTEDPanel is negative for [employer] BCID-detectable organisms. Please refer to traditional culture and sensitivity results as they become available.Other organisms and resistance markers not contained in this PCR panel cannot be excluded and follow-up of traditional culture results is required.This sample was tested at the [facility] Clinical Microbiology Laboratory using the Linq3 FilmArray Blood Culture ID Panel. This test is FDA cleared for in vitro diagnostic use and has been verified and approved by the [facility] Clinical Microbiology laboratory for clinical use. Reference Range: Not DetectedBLOOD GAS, [id number] 04:45:00 Test Item Value Reference Range Comments PH ARTERIAL (BEAKER) (test uanb=886) 7.42 7.35-7.45 PCO2 ARTERIAL (BEAKER) (test hbad=085) 46 mmHg 35-45 PO2 ARTERIAL (BEAKER) (test xjsk=921) 192 mmHg 80-90 O2 SATURATION ARTERIAL (BEAKER) (test ifwc=585) 99.3 % 96.0-97.0 HCO3 ARTERIAL (BEAKER) (test smio=659) 29 mmol/L 21-29 BASE EXCESS ARTERIAL (BEAKER) (test cisx=626) 4.2 mmol/L -2.0-3.0 PATIENT TEMPERATURE (BEAKER) (test amfn=7208) 37.0 C FIO2 (BEAKER) (test ceqb=3711) 40.0 % BASIC METABOLIC [id number] 04:39:00 Test Item Value Reference Range Comments SODIUM (BEAKER) (test 137 meq/L 136-145 fsca=481) POTASSIUM (BEAKER) (test 3.8 meq/L 3.5-5.1 jdtm=855) CHLORIDE (BEAKER) (test 100 meq/L 98-107 igxv=630) CO2 (BEAKER) (test 26 meq/L 22-29 aply=347) BLOOD UREA NITROGEN 39 mg/dL 7-21 (BEAKER) (test ocmw=491) CREATININE (BEAKER) (test 3.80 mg/dL 0.57-1.25 ljcr=209) GLUCOSE RANDOM (BEAKER) 137 mg/dL 70-105 (test zubi=331) CALCIUM (BEAKER) (test 8.1 mg/dL 8.4-10.2 yvjs=719) EGFR (BEAKER) (test 20 mL/min/1.73 sq m ESTIMATED GFR IS NOT kyjh=3072) ACCURATE CREATININE CLEARANCE IN PREDICTING GLOMERULAR FILTRATION RATE. ESTIMATED GFR IS NOT APPLICABLE FOR DIALYSIS PATIENTS. Specimen slightly [id number] 04:35:00 Test Item Value Reference Range Comments MAGNESIUM (BEAKER) (test gwrk=053) 1.8 mg/dL 1.6-2.6 HEPATIC FUNCTION [id number] 04:35:00 Test Item Value Reference Range Comments TOTAL PROTEIN (BEAKER) (test wxqo=592) 4.8 gm/dL 6.0-8.3 ALBUMIN (BEAKER) (test rchc=3745) 2.3 g/dL 3.5-5.0 BILIRUBIN TOTAL (BEAKER) (test jmoq=241) 4.2 mg/dL 0.2-1.2 BILIRUBIN DIRECT (BEAKER) (test ldtd=969) 3.5 mg/dL 0.1-0.5 ALKALINE PHOSPHATASE (BEAKER) (test qklu=036) 64 U/L 40-150 AST (SGOT) (BEAKER) (test mzbg=061) 33 U/L 5-34 ALT (SGPT) (BEAKER) (test rmtm=750) 40 U/L 6-55 Specimen slightly [id number] 04:18:00 Test Item Value Reference Range Comments PARTIAL THROMBOPLASTIN TIME (BEAKER) (test 68.0 seconds 22.5-36.0 bkkd=263) CBC (HEMOGRAM ONLY)2018-01-23 04:10:00 Test Item Value Reference Range Comments WHITE BLOOD CELL COUNT (BEAKER) (test yiud=460) 17.0 K/ L 3.5-10.5 RED BLOOD CELL COUNT (BEAKER) (test jain=090) 2.48 M/ L 4.63-6.08 HEMOGLOBIN (BEAKER) (test zixk=115) 7.7 GM/DL 13.7-17.5 HEMATOCRIT (BEAKER) (test gzrw=527) 23.4 % 40.1-51.0 MEAN CORPUSCULAR VOLUME (BEAKER) (test gyzn=863) 94.4 fL 79.0-92.2 MEAN CORPUSCULAR HEMOGLOBIN (BEAKER) (test 31.0 pg 25.7-32.2 pfsd=316) MEAN CORPUSCULAR HEMOGLOBIN CONC (BEAKER) (test 32.9 GM/DL 32.3-36.5 syah=444) RED CELL DISTRIBUTION WIDTH (BEAKER) (test 20.4 % 11.6-14.4 ylop=900) PLATELET COUNT (BEAKER) (test beqq=615) 85 K/CU MM 150-450 MEAN PLATELET VOLUME (BEAKER) (test tsto=811) 10.1 fL 9.4-12.4 NUCLEATED RED BLOOD CELLS (BEAKER) (test 0 /100 WBC 0-0 qhrw=276) POCT-GLUCOSE [id number] 00:52:00 Test Item Value Reference Range Comments POC-GLUCOSE METER (BEAKER) 145 mg/dL 70-110 TESTED AT [facility] [address] (test mygv=3263) [facility] [address] BLOOD [id number] 00:00:00 Test Item Value Reference Range Comments CULTURE (BEAKER) (test xkdp=0337) No growth in 5 days POCT-GLUCOSE [id number] 18:17:00 Test Item Value Reference Range Comments POC-GLUCOSE METER (BEAKER) 97 mg/dL 70-110 TESTED AT [address] (test qjsh=0402) [facility] [id number] POCT-GLUCOSE [id number] 13:26:00 Test Item Value Reference Range Comments POC-GLUCOSE METER (BEAKER) 138 mg/dL 70-110 TESTED AT [address] (test hzdj=8407) [place] [id number] BLOOD GAS, [id number] 10:32:00 Test Item Value Reference Range Comments PH ARTERIAL (BEAKER) (test olld=013) 7.43 7.35-7.45 PCO2 ARTERIAL (BEAKER) (test jvnj=051) 39 mmHg 35-45 PO2 ARTERIAL (BEAKER) (test mree=920) 145 mmHg 80-90 O2 SATURATION ARTERIAL (BEAKER) (test biri=550) 98.9 % 96.0-97.0 HCO3 ARTERIAL (BEAKER) (test detp=066) 25 mmol/L 21-29 BASE EXCESS ARTERIAL (BEAKER) (test ebph=998) 0.7 mmol/L -2.0-3.0 PATIENT TEMPERATURE (BEAKER) (test qzba=1343) 37.0 C FIO2 (BEAKER) (test mcwy=8791) 40.0 % POCT-GLUCOSE [id number] 06:21:00 Test Item Value Reference Range Comments POC-GLUCOSE METER (BEAKER) 138 mg/dL 70-110 TESTED AT [address] (test rmqh=1498) [place] [id number] BASIC METABOLIC [id number] 04:25:00 Test Item Value Reference Range Comments SODIUM (BEAKER) (test 135 meq/L 136-145 wvyl=197) POTASSIUM (BEAKER) (test 4.1 meq/L 3.5-5.1 shww=197) CHLORIDE (BEAKER) (test 98 meq/L 98-107 gwvz=006) CO2 (BEAKER) (test 24 meq/L 22-29 uddw=928) BLOOD UREA NITROGEN 76 mg/dL 7-21 (BEAKER) (test lizu=742) CREATININE (BEAKER) (test 5.57 mg/dL 0.57-1.25 uyml=964) GLUCOSE RANDOM (BEAKER) 120 mg/dL 70-105 (test zzke=834) CALCIUM (BEAKER) (test 7.8 mg/dL 8.4-10.2 ezpi=141) EGFR (BEAKER) (test 13 mL/min/1.73 sq m ESTIMATED GFR IS NOT kkzt=2165) ACCURATE CREATININE CLEARANCE IN PREDICTING GLOMERULAR FILTRATION RATE. ESTIMATED GFR IS NOT APPLICABLE FOR DIALYSIS PATIENTS. Specimen slightly [id number] 04:24:00 Test Item Value Reference Range Comments MAGNESIUM (BEAKER) (test oabj=533) 2.1 mg/dL 1.6-2.6 HEPATIC FUNCTION [id number] 04:24:00 Test Item Value Reference Range Comments TOTAL PROTEIN (BEAKER) (test seci=541) 4.2 gm/dL 6.0-8.3 ALBUMIN (BEAKER) (test prtt=0830) 2.1 g/dL 3.5-5.0 BILIRUBIN TOTAL (BEAKER) (test dnyu=670) 4.3 mg/dL 0.2-1.2 BILIRUBIN DIRECT (BEAKER) (test hsua=668) 3.7 mg/dL 0.1-0.5 ALKALINE PHOSPHATASE (BEAKER) (test qeto=027) 48 U/L 40-150 AST (SGOT) (BEAKER) (test pwcl=648) 33 U/L 5-34 ALT (SGPT) (BEAKER) (test xigq=034) 42 U/L 6-55 Specimen slightly ictericCBC (HEMOGRAM ONLY)2018-01-22 04:18:00 Test Item Value Reference Range Comments WHITE BLOOD CELL COUNT (BEAKER) (test ozgf=921) 14.2 K/ L 3.5-10.5 RED BLOOD CELL COUNT (BEAKER) (test lowy=282) 2.34 M/ L 4.63-6.08 HEMOGLOBIN (BEAKER) (test hxye=609) 7.3 GM/DL 13.7-17.5 HEMATOCRIT (BEAKER) (test wcip=055) 21.6 % 40.1-51.0 MEAN CORPUSCULAR VOLUME (BEAKER) (test cfek=028) 92.3 fL 79.0-92.2 MEAN CORPUSCULAR HEMOGLOBIN (BEAKER) (test 31.2 pg 25.7-32.2 suyx=175) MEAN CORPUSCULAR HEMOGLOBIN CONC (BEAKER) (test 33.8 GM/DL 32.3-36.5 cgkq=932) RED CELL DISTRIBUTION WIDTH (BEAKER) (test 20.3 % 11.6-14.4 gaut=434) PLATELET COUNT (BEAKER) (test weou=027) 78 K/CU MM 150-450 MEAN PLATELET VOLUME (BEAKER) (test ltou=488) 11.0 fL 9.4-12.4 NUCLEATED RED BLOOD CELLS (BEAKER) (test 0 /100 WBC 0-0 anfx=764) [id number] 04:07:00 Test Item Value Reference Range Comments PARTIAL THROMBOPLASTIN TIME (BEAKER) (test 80.2 seconds 22.5-36.0 povn=623) BLOOD GAS, [id number] 04:06:00 Test Item Value Reference Range Comments PH ARTERIAL (BEAKER) (test mqqp=262) 7.44 7.35-7.45 PCO2 ARTERIAL (BEAKER) (test jtfm=996) 40 mmHg 35-45 PO2 ARTERIAL (BEAKER) (test wwli=923) 128 mmHg 80-90 O2 SATURATION ARTERIAL (BEAKER) (test bght=158) 98.7 % 96.0-97.0 HCO3 ARTERIAL (BEAKER) (test rajm=643) 26 mmol/L 21-29 BASE EXCESS ARTERIAL (BEAKER) (test drwv=904) 2.0 mmol/L -2.0-3.0 PATIENT TEMPERATURE (BEAKER) (test ybmu=2681) 37.0 C FIO2 (BEAKER) (test iubu=9566) 40.0 % RAD, CHEST, 1 VIEW, NON [id number] 03:32:00Reason for exam:->ptxShould this be performed at the bedside?->YesFINAL REPORT RAD , CHEST, 1 VIEW, NON DEPT INDICATION: ptx COMPARISON: Prior day's exam FINDINGS : Portable frontal view of the chest. IMPRESSION: Support Lines: Stable. Lungs and pleura: Improved inflation of the right lung. Small residual right apical pneumothorax. Congestivechanges/atelectasis and small left effusion is stable. Heart and mediastinum: Stable contours. Stable surgical changes.Additional findings: None. Signed: JR Platt Robert MDReport Verified Date/Time: 01/22/2018 03:32:38 Reading Location: [facility] B1 C013Y CT Body Reading Room POCT-GLUCOSE [id number] 00:43:00 Test Item Value Reference Range Comments POC-GLUCOSE METER (BEAKER) 102 mg/dL 70-110 TESTED AT [address] (test vlpy=4683) [facility] [address] [id number] 17:31:00 Test Item Value Reference Range Comments PARTIAL THROMBOPLASTIN TIME (BEAKER) (test 65.0 seconds 22.5-36.0 zqdm=842) POCT-GLUCOSE [id number] 17:24:00 Test Item Value Reference Range Comments POC-GLUCOSE METER (BEAKER) 171 mg/dL 70-110 TESTED AT [address] (test jhtr=5963) [facility] [address] POCT-GLUCOSE [id number] 13:01:00 Test Item Value Reference Range Comments POC-GLUCOSE METER (BEAKER) 144 mg/dL 70-110 TESTED AT [address] (test fesl=2098) [facility] [address] [id number] 11:12:00 Test Item Value Reference Range Comments PARTIAL THROMBOPLASTIN TIME (BEAKER) (test 67.9 seconds 22.5-36.0 dkys=394) RAD, CHEST, 1 VIEW, NON [id number] 08:01:00Reason for exam:->ptxShould this be performed at the bedside?->YesFINAL REPORT Chest one view INDICATION: Pneumothorax COMPARISON: 01/20/2018 IMPRESSION: Support devices are in satisfactory position accounting for positional differences. Median sternotomy changes, valve prosthesis, and atrial appendage occlusion device are noted. A small right apical pneumothorax is now present. A dependent right pleural effusion is suspected. Greater lower right lung opacity suggesting partial lobar collapse and/or consolidation. Consider bronchoscopy. Othermixed interstitial and airspace opacities may reflect edema, multifocal pneumonitis, or combination thereof. A small left pleural effusion is present. Signed: Dung Granda MDReport Verified Date/Time: 01/21/2018 08:01:07 Reading Location: [facility] Reading Room POCT-GLUCOSE [id number] 06:50:00 Test Item Value Reference Range Comments POC-GLUCOSE METER (BEAKER) 149 mg/dL 70-110 TESTED AT [facility] [address] [facility] (test dghp=0750) [facility] [address] CBC (HEMOGRAM ONLY)2018-01-21 04:20:00 Test Item Value Reference Range Comments WHITE BLOOD CELL COUNT (BEAKER) (test lgva=164) 16.6 K/ L 3.5-10.5 RED BLOOD CELL COUNT (BEAKER) (test diez=794) 2.13 M/ L 4.63-6.08 HEMOGLOBIN (BEAKER) (test htwu=465) 6.8 GM/DL 13.7-17.5 HEMATOCRIT (BEAKER) (test opih=370) 20.2 % 40.1-51.0 MEAN CORPUSCULAR VOLUME (BEAKER) (test huna=461) 94.8 fL 79.0-92.2 MEAN CORPUSCULAR HEMOGLOBIN (BEAKER) (test 31.9 pg 25.7-32.2 szki=024) MEAN CORPUSCULAR HEMOGLOBIN CONC (BEAKER) (test 33.7 GM/DL 32.3-36.5 fnap=115) RED CELL DISTRIBUTION WIDTH (BEAKER) (test 19.5 % 11.6-14.4 avae=341) PLATELET COUNT (BEAKER) (test xaxj=288) 88 K/CU MM 150-450 MEAN PLATELET VOLUME (BEAKER) (test enlx=183) 10.6 fL 9.4-12.4 NUCLEATED RED BLOOD CELLS (BEAKER) (test 0 /100 WBC 0-0 ooan=481) [id number] 04:03:00 Test Item Value Reference Range Comments PARTIAL THROMBOPLASTIN TIME (BEAKER) (test 51.2 seconds 22.5-36.0 nuhh=364) BASIC METABOLIC [id number] 04:01:00 Test Item Value Reference Range Comments SODIUM (BEAKER) (test 137 meq/L 136-145 pkqm=755) POTASSIUM (BEAKER) (test 3.8 meq/L 3.5-5.1 skss=762) CHLORIDE (BEAKER) (test 99 meq/L 98-107 jqgu=560) CO2 (BEAKER) (test 28 meq/L 22-29 qzap=648) BLOOD UREA NITROGEN 50 mg/dL 7-21 (BEAKER) (test kyev=634) CREATININE (BEAKER) (test 3.75 mg/dL 0.57-1.25 okkt=934) GLUCOSE RANDOM (BEAKER) 90 mg/dL 70-105 (test vhye=991) CALCIUM (BEAKER) (test 7.9 mg/dL 8.4-10.2 wlct=664) EGFR (BEAKER) (test 20 mL/min/1.73 sq m ESTIMATED GFR IS NOT uhfz=2712) ACCURATE CREATININE CLEARANCE IN PREDICTING GLOMERULAR FILTRATION RATE. ESTIMATED GFR IS NOT APPLICABLE FOR DIALYSIS PATIENTS. Specimen moderately [id number] 03:59:00 Test Item Value Reference Range Comments MAGNESIUM (BEAKER) (test arux=380) 2.0 mg/dL 1.6-2.6 HEPATIC FUNCTION [id number] 03:59:00 Test Item Value Reference Range Comments TOTAL PROTEIN (BEAKER) (test itio=254) 4.5 gm/dL 6.0-8.3 ALBUMIN (BEAKER) (test izcf=0499) 2.2 g/dL 3.5-5.0 BILIRUBIN TOTAL (BEAKER) (test nyyy=878) 6.0 mg/dL 0.2-1.2 BILIRUBIN DIRECT (BEAKER) (test cbze=242) 5.1 mg/dL 0.1-0.5 ALKALINE PHOSPHATASE (BEAKER) (test gvqq=726) 48 U/L 40-150 AST (SGOT) (BEAKER) (test hhrk=334) 32 U/L 5-34 ALT (SGPT) (BEAKER) (test qwvu=799) 51 U/L 6-55 Specimen moderately ictericVANCOMYCIN LEVEL, [id number] 03:57:00 Test Item Value Reference Range Comments VANCOMYCIN RANDOM (BEAKER) (test murk=776) 18.3 ug/mL Reference Range: No NormalsOXYGEN SATURATION, [id number] 03:32:00 Test Item Value Reference Range Comments O2 SATURATION (MEASURED) (BEAKER) (test zfdw=0406) 86.3 % BLOOD GAS, [id number] 03:30:00 Test Item Value Reference Range Comments PH ARTERIAL (BEAKER) (test uaiu=657) 7.50 7.35-7.45 PCO2 ARTERIAL (BEAKER) (test vhuh=033) 38 mmHg 35-45 PO2 ARTERIAL (BEAKER) (test xvzx=175) 142 mmHg 80-90 O2 SATURATION ARTERIAL (BEAKER) (test xqss=636) 99.0 % 96.0-97.0 HCO3 ARTERIAL (BEAKER) (test vqgt=571) 29 mmol/L 21-29 BASE EXCESS ARTERIAL (BEAKER) (test ecif=684) 5.4 mmol/L -2.0-3.0 PATIENT TEMPERATURE (BEAKER) (test gqbk=4546) 37.5 C FIO2 (BEAKER) (test nrij=9291) 40.0 % POCT-GLUCOSE [id number] 23:43:00 Test Item Value Reference Range Comments POC-GLUCOSE METER (BEAKER) 143 mg/dL 70-110 TESTED AT [address] (test wxan=0204) [place] [address] BLOOD [id number] 18:00:00 Test Item Value Reference Range Comments CULTURE (BEAKER) (test kxir=2988) No growth in 5 days BLOOD [id number] 18:00:00 Test Item Value Reference Range Comments CULTURE (BEAKER) (test mzdq=6580) No growth in 5 days POCT-GLUCOSE [id number] 16:32:00 Test Item Value Reference Range Comments POC-GLUCOSE METER (BEAKER) 185 mg/dL 70-110 TESTED AT [address] (test qlrn=5637) [place] [address] MISCELLANEOUS LAB [id number] 15:04:00 Test Item Value Reference Range Comments SCAN RESULT (test flkf=[id number]) Result comments: NOT DETECTED Panel is negative for [employer] BCID-detectable organisms. Please refer to traditional culture and sensitivity results as they become available. Other organisms and resistance markers not contained in this PCR panel cannot be excluded and follow-up of traditional culture results is required. This sample was tested at the [facility] Clinical Microbiology Laboratory using the [employer] Blood Culture ID Panel. This test is FDA cleared for in vitro diagnostic use and hasbeen verified and approved by the [facility] Clinical Microbiology laboratory for clinical use. ReferenceRange: Not DetectedPOCT-GLUCOSE [id number] 12:25:00 Test Item Value Reference Range Comments POC-GLUCOSE METER (BEAKER) 116 mg/dL 70-110 TESTED AT [address] (test qbwj=4780) [facility] [address] RAD, CHEST, 1 VIEW, NON [id number] 06:38:00Reason for exam:->pl effusionShould this be performed at the bedside?->YesFINAL REPORT RAD, CHEST, 1 VIEW, NON DEPT INDICATION: pl effusion COMPARISON: Prior day's exam FINDINGS: Portable frontal view of the chest. IMPRESSION: Support Lines: Stable.Lungs and pleura: Unchanged appearance of the air spaces. No new effusion. No pneumothorax.Heart andmediastinum: Stable contours. Stable surgical changes.Additional findings: None. Signed: JR Platt Robert MDReport Verified Date/Time: 01/20/2018 06:38:33 Reading Location: [address] Body Reading Room POCT-GLUCOSE [id number] 05:54:00 Test Item Value Reference Range Comments POC-GLUCOSE METER (BEAKER) 231 mg/dL 70-110 TESTED AT [address] (test gvdb=2361) [facility] [address] VANCOMYCIN LEVEL, [id number] 04:23:00 Test Item Value Reference Range Comments VANCOMYCIN RANDOM (BEAKER) (test cqyh=412) 25.8 ug/mL Reference Range: No [id number] 04:17:00 Test Item Value Reference Range Comments MAGNESIUM (BEAKER) (test ojei=148) 2.0 mg/dL 1.6-2.6 HEPATIC FUNCTION [id number] 04:17:00 Test Item Value Reference Range Comments TOTAL PROTEIN (BEAKER) (test ehgu=301) 4.8 gm/dL 6.0-8.3 ALBUMIN (BEAKER) (test hhus=8607) 2.3 g/dL 3.5-5.0 BILIRUBIN TOTAL (BEAKER) (test eils=723) 7.1 mg/dL 0.2-1.2 BILIRUBIN DIRECT (BEAKER) (test vecx=993) 6.0 mg/dL 0.1-0.5 ALKALINE PHOSPHATASE (BEAKER) (test tkva=078) 53 U/L 40-150 AST (SGOT) (BEAKER) (test isgp=145) 27 U/L 5-34 ALT (SGPT) (BEAKER) (test xvqk=209) 65 U/L 6-55 Specimen moderately ictericBASIC METABOLIC [id number] 04:17:00 Test Item Value Reference Range Comments SODIUM (BEAKER) (test 130 meq/L 136-145 cefx=609) POTASSIUM (BEAKER) (test 4.9 meq/L 3.5-5.1 uqru=490) CHLORIDE (BEAKER) (test 94 meq/L 98-107 dzzm=903) CO2 (BEAKER) (test 23 meq/L 22-29 uzwn=060) BLOOD UREA NITROGEN 76 mg/dL 7-21 (BEAKER) (test ywgd=332) CREATININE (BEAKER) (test 4.93 mg/dL 0.57-1.25 vmqa=097) GLUCOSE RANDOM (BEAKER) 203 mg/dL 70-105 (test zzff=934) CALCIUM (BEAKER) (test 7.9 mg/dL 8.4-10.2 dpyn=718) EGFR (BEAKER) (test 15 mL/min/1.73 sq m ESTIMATED GFR IS NOT fcev=4122) ACCURATE CREATININE CLEARANCE IN PREDICTING GLOMERULAR FILTRATION RATE. ESTIMATED GFR IS NOT APPLICABLE FOR DIALYSIS PATIENTS. Specimen moderately [id number] 04:05:00 Test Item Value Reference Range Comments PARTIAL THROMBOPLASTIN TIME (BEAKER) (test 69.7 seconds 22.5-36.0 npqr=236) CBC W/PLT COUNT & AUTO [id number] 03:49:00 Test Item Value Reference Range Comments WHITE BLOOD CELL COUNT (BEAKER) (test ksof=013) 16.1 K/ L 3.5-10.5 RED BLOOD CELL COUNT (BEAKER) (test dsqd=120) 2.30 M/ L 4.63-6.08 HEMOGLOBIN (BEAKER) (test slgj=123) 7.4 GM/DL 13.7-17.5 HEMATOCRIT (BEAKER) (test gxtz=017) 22.2 % 40.1-51.0 MEAN CORPUSCULAR VOLUME (BEAKER) (test wudt=331) 96.5 fL 79.0-92.2 MEAN CORPUSCULAR HEMOGLOBIN (BEAKER) (test 32.2 pg 25.7-32.2 bqdm=186) MEAN CORPUSCULAR HEMOGLOBIN CONC (BEAKER) (test 33.3 GM/DL 32.3-36.5 tdpo=882) RED CELL DISTRIBUTION WIDTH (BEAKER) (test 19.2 % 11.6-14.4 ewno=455) PLATELET COUNT (BEAKER) (test lmfv=226) 71 K/CU MM 150-450 MEAN PLATELET VOLUME (BEAKER) (test xxpi=338) 10.8 fL 9.4-12.4 NUCLEATED RED BLOOD CELLS (BEAKER) (test 1 /100 WBC 0-0 fuie=905) NEUTROPHILS RELATIVE PERCENT (BEAKER) (test 90 % bqgl=279) LYMPHOCYTES RELATIVE PERCENT (BEAKER) (test 2 % xquj=194) MONOCYTES RELATIVE PERCENT (BEAKER) (test 5 % dofz=972) EOSINOPHILS RELATIVE PERCENT (BEAKER) (test 0 % bfip=638) BASOPHILS RELATIVE PERCENT (BEAKER) (test 0 % imev=593) NEUTROPHILS ABSOLUTE COUNT (BEAKER) (test 14.52 K/ L 1.78-5.38 sumc=430) LYMPHOCYTES ABSOLUTE COUNT (BEAKER) (test 0.33 K/ L 1.32-3.57 ozom=541) MONOCYTES ABSOLUTE COUNT (BEAKER) (test srbs=633) 0.86 K/ L 0.30-0.82 EOSINOPHILS ABSOLUTE COUNT (BEAKER) (test 0.00 K/ L 0.04-0.54 rspp=710) BASOPHILS ABSOLUTE COUNT (BEAKER) (test ivit=781) 0.01 K/ L 0.01-0.08 IMMATURE GRANULOCYTES-RELATIVE PERCENT (BEAKER) 3 % 0-1 (test moxr=7878) OXYGEN SATURATION, [id number] 03:48:00 Test Item Value Reference Range Comments O2 SATURATION (MEASURED) (BEAKER) (test omtr=8109) 84.1 % POCT-GLUCOSE [id number] 23:14:00 Test Item Value Reference Range Comments POC-GLUCOSE METER (BEAKER) 248 mg/dL 70-110 TESTED AT [address] (test usiq=3801) [facility] [address] POCT-GLUCOSE [id number] 18:56:00 Test Item Value Reference Range Comments POC-GLUCOSE METER (BEAKER) 213 mg/dL 70-110 TESTED AT [address] (test gfqk=3490) [place] [id number] POCT-GLUCOSE [id number] 14:06:00 Test Item Value Reference Range Comments POC-GLUCOSE METER (BEAKER) 210 mg/dL 70-110 TESTED AT [address] (test trbu=3044) [place] [id number] SPUTUM CULTURE + GRAM [id number] 13:45:00 Test Item Value Reference Range Comments CULTURE (BEAKER) (test 4+ Normal respiratory ptee oftt=9476) present GRAM STAIN RESULT (BEAKER) 4+ WBCs (test dfxs=8789) GRAM STAIN RESULT (BEAKER) 0-5 epithelial cells (test pgaw=51656) GRAM STAIN RESULT (BEAKER) 3+ gram negative rods (test ycjt=17236) GRAM STAIN RESULT (BEAKER) 2+ gram positive cocci in pairs (test dxjb=012280) and clusters [id number] 12:37:00 Test Item Value Reference Range Comments PARTIAL THROMBOPLASTIN TIME (BEAKER) (test 74.3 seconds 22.5-36.0 lzqy=063) CBC W/PLT COUNT & AUTO [id number] 10:52:00 Test Item Value Reference Range Comments WHITE BLOOD CELL COUNT (BEAKER) (test bhps=697) 17.8 K/ L 3.5-10.5 RED BLOOD CELL COUNT (BEAKER) (test bvnz=902) 2.54 M/ L 4.63-6.08 HEMOGLOBIN (BEAKER) (test ceft=149) 8.0 GM/DL 13.7-17.5 HEMATOCRIT (BEAKER) (test dvzc=715) 24.6 % 40.1-51.0 MEAN CORPUSCULAR VOLUME (BEAKER) (test sesn=225) 96.9 fL 79.0-92.2 MEAN CORPUSCULAR HEMOGLOBIN (BEAKER) (test 31.5 pg 25.7-32.2 bziz=299) MEAN CORPUSCULAR HEMOGLOBIN CONC (BEAKER) (test 32.5 GM/DL 32.3-36.5 nrsw=420) RED CELL DISTRIBUTION WIDTH (BEAKER) (test 19.5 % 11.6-14.4 qpue=638) PLATELET COUNT (BEAKER) (test dozl=513) 61 K/CU MM 150-450 MEAN PLATELET VOLUME (BEAKER) (test ypxa=093) 10.8 fL 9.4-12.4 NUCLEATED RED BLOOD CELLS (BEAKER) (test 2 /100 WBC 0-0 ryfu=588) VANCOMYCIN LEVEL, [id number] 05:41:00 Test Item Value Reference Range Comments VANCOMYCIN RANDOM (BEAKER) (test cqrh=307) 27.9 ug/mL Reference Range: No NormalsBASIC METABOLIC [id number] 05:39:00 Test Item Value Reference Range Comments SODIUM (BEAKER) (test 134 meq/L 136-145 zmsq=680) POTASSIUM (BEAKER) (test 4.5 meq/L 3.5-5.1 infm=538) CHLORIDE (BEAKER) (test 98 meq/L 98-107 cmhb=869) CO2 (BEAKER) (test 26 meq/L 22-29 mxtm=115) BLOOD UREA NITROGEN 41 mg/dL 7-21 (BEAKER) (test boah=398) CREATININE (BEAKER) (test 3.08 mg/dL 0.57-1.25 rxmb=778) GLUCOSE RANDOM (BEAKER) 192 mg/dL 70-105 (test hjjt=772) CALCIUM (BEAKER) (test 8.0 mg/dL 8.4-10.2 yhym=837) EGFR (BEAKER) (test 25 mL/min/1.73 sq m ESTIMATED GFR IS NOT tqmb=8860) ACCURATE CREATININE CLEARANCE IN PREDICTING GLOMERULAR FILTRATION RATE. ESTIMATED GFR IS NOT APPLICABLE FOR DIALYSIS PATIENTS. Specimen moderately [id number] 05:36:00 Test Item Value Reference Range Comments MAGNESIUM (BEAKER) (test wxoz=825) 2.0 mg/dL 1.6-2.6 [id number] 05:36:00 Test Item Value Reference Range Comments PHOSPHORUS (BEAKER) (test wwcx=869) 3.9 mg/dL 2.3-4.7 HEPATIC FUNCTION [id number] 05:36:00 Test Item Value Reference Range Comments TOTAL PROTEIN (BEAKER) (test ceks=565) 4.8 gm/dL 6.0-8.3 ALBUMIN (BEAKER) (test kgkw=3681) 2.5 g/dL 3.5-5.0 BILIRUBIN TOTAL (BEAKER) (test nkap=481) 7.7 mg/dL 0.2-1.2 BILIRUBIN DIRECT (BEAKER) (test xfqn=085) 6.3 mg/dL 0.1-0.5 ALKALINE PHOSPHATASE (BEAKER) (test wcgm=359) 57 U/L 40-150 AST (SGOT) (BEAKER) (test bsds=694) 43 U/L 5-34 ALT (SGPT) (BEAKER) (test koea=322) 106 U/L 6-55 Specimen moderately ictericOXYGEN SATURATION, [id number] 05:33:00 Test Item Value Reference Range Comments O2 SATURATION (MEASURED) (BEAKER) (test dasz=8531) 87.0 % CBC (HEMOGRAM ONLY)2018-01-19 05:25:00 Test Item Value Reference Range Comments WHITE BLOOD CELL COUNT (BEAKER) (test tzgd=021) 17.8 K/ L 3.5-10.5 RED BLOOD CELL COUNT (BEAKER) (test fmaq=666) 2.54 M/ L 4.63-6.08 HEMOGLOBIN (BEAKER) (test iume=736) 8.0 GM/DL 13.7-17.5 HEMATOCRIT (BEAKER) (test shhl=777) 24.6 % 40.1-51.0 MEAN CORPUSCULAR VOLUME (BEAKER) (test wedh=653) 96.9 fL 79.0-92.2 MEAN CORPUSCULAR HEMOGLOBIN (BEAKER) (test 31.5 pg 25.7-32.2 tvim=939) MEAN CORPUSCULAR HEMOGLOBIN CONC (BEAKER) (test 32.5 GM/DL 32.3-36.5 ihlu=116) RED CELL DISTRIBUTION WIDTH (BEAKER) (test 19.5 % 11.6-14.4 xhow=952) PLATELET COUNT (BEAKER) (test idfv=718) 61 K/CU MM 150-450 MEAN PLATELET VOLUME (BEAKER) (test wxpx=168) 10.8 fL 9.4-12.4 NUCLEATED RED BLOOD CELLS (BEAKER) (test 2 /100 WBC 0-0 cbtk=757) [id number] 05:24:00 Test Item Value Reference Range Comments PARTIAL THROMBOPLASTIN TIME (BEAKER) (test 68.1 seconds 22.5-36.0 ozbb=265) RAD, CHEST, 1 VIEW, NON [id number] 04:41:00Reason for exam:->pl effusionShould this be performed at the bedside?->YesFINAL REPORT CLINICAL INDICATION: Support lines. Comparison: 01/18/2018 The cardiomediastinal contours are stable. Central pulmonary vascular congestion and bilateral parenchymalopacities are unchanged. There is no pneumothorax. Support lines are stable. Signed: Kellen Parra MDReport Verified Date/Time: 04:41:27 Reading Location: [address] Reading Room [id number] 00:38:00 Test Item Value Reference Range Comments PARTIAL THROMBOPLASTIN TIME (BEAKER) (test 45.5 seconds 22.5-36.0 hfgl=083) POCT-GLUCOSE [id number] 00:21:00 Test Item Value Reference Range Comments POC-GLUCOSE METER (BEAKER) 189 mg/dL 70-110 TESTED AT [address] (test qbsl=0294) [place] [id number] POCT-GLUCOSE [id number] 23:34:00 Test Item Value Reference Range Comments POC-GLUCOSE METER (BEAKER) 162 mg/dL 70-110 TESTED AT [address] (test nwik=4676) [facility] [address] POCT-GLUCOSE [id number] 18:09:00 Test Item Value Reference Range Comments POC-GLUCOSE METER (BEAKER) 172 mg/dL 70-110 TESTED AT [address] (test sxyx=0140) [facility] [address] RAD, ABDOMEN/KUB, 1 VIEW [id number] 17:36:00Reason for exam:->ileusShould this be performed at the bedside?->YesFINAL REPORT Comparison: 01/17/2018 TECHNIQUE: Frontal image of the abdomen FINDINGS: There is a nonspecific bowel gas pattern. Tip of nasogastric projects in the distal stomach. No gross free intraperitoneal air. No acute skeletal abnormality. Signed: Kyle Rome MDReport Verified Date/Time: 01/18/2018 17:36:02 Reading Location: [facility] C013 Transitional Reading Room [id number] 17:10:00 Test Item Value Reference Range Comments PARTIAL THROMBOPLASTIN TIME (BEAKER) (test 27.8 seconds 22.5-36.0 jcdd=323) Prior to initiating heparinPOCT-GLUCOSE [id number] 15:22:00 Test Item Value Reference Range Comments POC-GLUCOSE METER (BEAKER) 126 mg/dL 70-110 TESTED AT [facility] [address] [facility] (test tlqw=8944) [facility] [address] [id number] 13:02:00 Test Item Value Reference Range Comments PHOSPHORUS (BEAKER) (test dhzf=647) 3.8 mg/dL 2.3-4.7 BASIC METABOLIC [id number] 13:02:00 Test Item Value Reference Range Comments SODIUM (BEAKER) (test 134 meq/L 136-145 djiv=079) POTASSIUM (BEAKER) (test 4.6 meq/L 3.5-5.1 ytyt=603) CHLORIDE (BEAKER) (test 100 meq/L 98-107 fdpd=232) CO2 (BEAKER) (test 22 meq/L 22-29 btyc=331) BLOOD UREA NITROGEN 29 mg/dL 7-21 (BEAKER) (test yafb=341) CREATININE (BEAKER) (test 2.37 mg/dL 0.57-1.25 ttuq=924) GLUCOSE RANDOM (BEAKER) 142 mg/dL 70-105 (test tmlf=952) CALCIUM (BEAKER) (test 8.0 mg/dL 8.4-10.2 bxym=378) EGFR (BEAKER) (test 34 mL/min/1.73 sq m ESTIMATED GFR IS NOT ieoz=9397) ACCURATE CREATININE CLEARANCE IN PREDICTING GLOMERULAR FILTRATION RATE. ESTIMATED GFR IS NOT APPLICABLE FOR DIALYSIS PATIENTS. Specimen moderately ictericPOCT-GLUCOSE [id number] 12:11:00 Test Item Value Reference Range Comments POC-GLUCOSE METER (BEAKER) 113 mg/dL 70-110 TESTED AT [facility] [address] (test raxd=1378) [place] [address] CBC W/PLT COUNT & AUTO [id number] 12:03:00 Test Item Value Reference Range Comments WHITE BLOOD CELL COUNT (BEAKER) (test yyfh=845) 15.4 K/ L 3.5-10.5 RED BLOOD CELL COUNT (BEAKER) (test dxxf=433) 2.63 M/ L 4.63-6.08 HEMOGLOBIN (BEAKER) (test howw=812) 8.4 GM/DL 13.7-17.5 HEMATOCRIT (BEAKER) (test rken=596) 25.8 % 40.1-51.0 MEAN CORPUSCULAR VOLUME (BEAKER) (test urkm=730) 98.1 fL 79.0-92.2 MEAN CORPUSCULAR HEMOGLOBIN (BEAKER) (test 31.9 pg 25.7-32.2 bzvf=817) MEAN CORPUSCULAR HEMOGLOBIN CONC (BEAKER) (test 32.6 GM/DL 32.3-36.5 lmne=826) RED CELL DISTRIBUTION WIDTH (BEAKER) (test 19.5 % 11.6-14.4 qdwb=926) PLATELET COUNT (BEAKER) (test ruvg=378) 65 K/CU MM 150-450 MEAN PLATELET VOLUME (BEAKER) (test elym=001) 10.9 fL 9.4-12.4 NUCLEATED RED BLOOD CELLS (BEAKER) (test 7 /100 WBC 0-0 yepv=036) RAD, CHEST, 1 VIEW, NON [id number] 09:44:00Reason for exam:->pl effusionShould this be performed at the bedside?->YesFINAL REPORT TECHNIQUE: Single view of the chest. COMPARISON: 01/17/2018 FINDINGS: Bilateral patchy interstitial and airspace opacities are stable. There are no large pleural effusions. No gross pneumothorax.No gross new lung parenchymal changes. A previous catheter in the rightneck has been removed. Remaining lines and tubes are stable. Signed: Kyle Rome MDReport Verified Date /Time: 01/18/2018 09:44:26 Reading Location: [address] Transitional Reading Room SPUTUM CULTURE + GRAM [id number] 08:09:00 Test Item Value Reference Range Comments CULTURE (BEAKER) (test 3+ Normal respiratory pete sbgp=3001) present GRAM STAIN RESULT (BEAKER) 4+ WBCs (test aahu=2450) GRAM STAIN RESULT (BEAKER) 0-5 epithelial cells (test jyeq=26258) GRAM STAIN RESULT (BEAKER) No organisms seen (test npve=76382) POCT-GLUCOSE [id number] 07:52:00 Test Item Value Reference Range Comments POC-GLUCOSE METER (BEAKER) 146 mg/dL 70-110 TESTED AT [address] (test fmll=4630) [facility] [address] POCT-GLUCOSE [id number] 06:30:00 Test Item Value Reference Range Comments POC-GLUCOSE METER (BEAKER) 135 mg/dL 70-110 TESTED AT [address] (test eykc=4394) [facility] [address] POCT-GLUCOSE [id number] 06:30:00 Test Item Value Reference Range Comments POC-GLUCOSE METER (BEAKER) 130 mg/dL 70-110 TESTED AT [address] (test kjrb=9271) [facility] [address] [id number] 03:56:00 Test Item Value Reference Range Comments PHOSPHORUS (BEAKER) (test ykzs=071) 3.1 mg/dL 2.3-4.7 [id number] 03:56:00 Test Item Value Reference Range Comments MAGNESIUM (BEAKER) (test mmje=549) 2.0 mg/dL 1.6-2.6 HEPATIC FUNCTION [id number] 03:56:00 Test Item Value Reference Range Comments TOTAL PROTEIN (BEAKER) (test xuao=461) 4.8 gm/dL 6.0-8.3 ALBUMIN (BEAKER) (test emtq=6101) 2.5 g/dL 3.5-5.0 BILIRUBIN TOTAL (BEAKER) (test oeqc=692) 8.5 mg/dL 0.2-1.2 BILIRUBIN DIRECT (BEAKER) (test adut=517) 7.1 mg/dL 0.1-0.5 ALKALINE PHOSPHATASE (BEAKER) (test wbad=092) 57 U/L 40-150 AST (SGOT) (BEAKER) (test wyxp=605) 45 U/L 5-34 ALT (SGPT) (BEAKER) (test usnr=008) 155 U/L 6-55 Specimen moderately ictericVANCOMYCIN LEVEL, [id number] 03:53:00 Test Item Value Reference Range Comments VANCOMYCIN RANDOM (BEAKER) (test qwxm=314) 18.0 ug/mL Reference Range: No [id number] 03:48:00 Test Item Value Reference Range Comments CALCIUM (BEAKER) (test ivka=381) 8.1 mg/dL 8.4-10.2 CALCIUM, [id number] 03:34:00 Test Item Value Reference Range Comments CALCIUM IONIZED (BEAKER) (test aqbo=625) 1.06 mmol/L 1.12-1.27 PH, BLOOD (BEAKER) (test ywzv=2585) 7.38 OXYGEN SATURATION, [id number] 03:33:00 Test Item Value Reference Range Comments O2 SATURATION (MEASURED) (BEAKER) (test obrv=0617) 85.8 % POCT-GLUCOSE [id number] 03:26:00 Test Item Value Reference Range Comments POC-GLUCOSE METER (BEAKER) 144 mg/dL 70-110 TESTED AT [address] (test vbpq=3025) [facility] [address] POCT-GLUCOSE [id number] 03:26:00 Test Item Value Reference Range Comments POC-GLUCOSE METER (BEAKER) 163 mg/dL 70-110 TESTED AT [address] (test rsjt=1203) [facility] [address] POCT-GLUCOSE [id number] 01:04:00 Test Item Value Reference Range Comments POC-GLUCOSE METER (BEAKER) 159 mg/dL 70-110 TESTED AT [address] (test thtt=4551) [facility] [address] POCT-GLUCOSE [id number] 00:12:00 Test Item Value Reference Range Comments POC-GLUCOSE METER (BEAKER) 132 mg/dL 70-110 TESTED AT [address] (test ddnn=4694) [facility] [address] LACTIC ACID, ARTERIAL, WHOLE [id number] 23:54:00 Test Item Value Reference Range Comments LACTATE BLOOD ARTERIAL (2) (BEAKER) (test 0.7 mmol/L 0.5-2.2 ghik=9884) Effective 01/04/2016: Units/Reference Range ChangeNew: 0.5-2.2 mmol/L Previous: 5 -20 mg/dLSpecimen moderately ictericPOTASSIUM-STAT [id number] 23:30:00 Test Item Value Reference Range Comments POTASSIUM (BEAKER) (test hpow=755) 4.0 meq/L 3.6-5.5 BLOOD GAS, [id number] 23:30:00 Test Item Value Reference Range Comments PH ARTERIAL (BEAKER) (test eeca=038) 7.45 7.35-7.45 PCO2 ARTERIAL (BEAKER) (test jopm=964) 42 mmHg 35-45 PO2 ARTERIAL (BEAKER) (test oktq=439) 95 mmHg 80-90 O2 SATURATION ARTERIAL (BEAKER) (test xwrq=491) 97.5 % 96.0-97.0 HCO3 ARTERIAL (BEAKER) (test zkbf=000) 29 mmol/L 21-29 BASE EXCESS ARTERIAL (BEAKER) (test pcmh=525) 4.3 mmol/L -2.0-3.0 PATIENT TEMPERATURE (BEAKER) (test fnap=7529) 37.1 C FIO2 (BEAKER) (test olnb=0829) 50.0 % SODIUM NA-STAT [id number] 23:30:00 Test Item Value Reference Range Comments SODIUM (BEAKER) (test jytu=989) 134 meq/L 135-148 GLUCOSE-STAT [id number] 23:30:00 Test Item Value Reference Range Comments GLUCOSE RANDOM (BEAKER) (test cnvm=329) 138 mg/dL 70-110 HGB/HCT (H&H) - STAT [id number] 23:30:00 Test Item Value Reference Range Comments HEMOGLOBIN (BEAKER) (test ohrj=719) 9.0 g/dL 13.0-16.8 HEMATOCRIT (BEAKER) (test yucv=406) 26.0 % 40.0-50.0 CALCIUM, [id number] 23:30:00 Test Item Value Reference Range Comments CALCIUM IONIZED (BEAKER) (test xrpb=638) 1.04 mmol/L 1.12-1.27 PH, BLOOD (BEAKER) (test ckps=3374) 7.48 OXYGEN SATURATION, [id number] 23:28:00 Test Item Value Reference Range Comments O2 SATURATION (MEASURED) (BEAKER) (test jfkg=6157) 82.0 % POCT-GLUCOSE [id number] 21:35:00 Test Item Value Reference Range Comments POC-GLUCOSE METER (BEAKER) 99 mg/dL 70-110 TESTED AT [place] [id number] [facility] (test vmlz=5399) [facility] [address] POCT-GLUCOSE [id number] 21:35:00 Test Item Value Reference Range Comments POC-GLUCOSE METER (BEAKER) 111 mg/dL 70-110 TESTED AT [address] (test tmlf=3111) [facility] [address] RAD, CHEST, 1 VIEW, NON [id number] 17:08:00Reason for exam:->LIJ placment CVCShould this be performed at the bedside?->YesFINAL REPORT TECHNIQUE: Frontal chest radiograph dated 01/17/2018. CLINICAL HISTORY: LIJ placement COMPARISON STUDY: Chest radiograph performed earlier the same day IMPRESSION:There has been interval placement of a left- sided central vascular line with the tip projects over the superior vena cava. Left-sided chest tube and mediastinal drain have been removed. Remaining life support tubes and lines are unchanged. Vague airspace opacities in a perihilar distribution are suggestive of pulmonary edema. No pleural effusion or pneumothorax. Cardiomediastinal silhouette is stable inappearance. Midline sternotomy wires are intact and well aligned. No fracture. Signed: Alonso Va[place]port Verified Date/Time: 01/17/2018 17:08:24 Reading Location: [facility] Radiology Reading Room GLUCOSE-STAT [id number] 16:33:00 Test Item Value Reference Range Comments GLUCOSE RANDOM (BEAKER) (test piiz=156) 147 mg/dL 70-110 POTASSIUM-STAT [id number] 16:32:00 Test Item Value Reference Range Comments POTASSIUM (BEAKER) (test kkqd=550) 4.7 meq/L 3.6-5.5 [id number] 15:03:00 Test Item Value Reference Range Comments PROCALCITONIN (BEAKER) (test amzu=6554) 5.33 ng/mL <0.05 SEPSIS RISK (ng/mL)Low: 0.05-0.50Intermediate: 0.51-2.00High: & gt;=2.01CT BRAIN WITHOUT IV CONTRAST - [id number] 13:50:00Reason for exam:->altered mental statusFINAL REPORT CT head without contrast INDICATION: Altered mental status. TECHNIQUE: Contiguous axial images through the head without contrast on the portable CT unit. This exam was performed according to our departmental dose optimization program which includes automated exposure control, adjustment of the mA and/or kV according to patient size and/or use of iterative reconstruction technique. COMPARISON: None available FINDINGS:There is no parenchymal hematoma, extra-axial collection , or mass effect. There is nonspecific white matter lucency suggesting microvascular ischemiawithout definitive acute features. No acute territorial infarct is evident on CT. Please note that CT is insensitive for early or small infarcts. Generalized volume loss and vascular calcifications arenoted. There is no hydrocephalus or midline shift. ET and enteric tubes are in place with pharyngealsecretions, mild sinus mucosal disease, and bilateral mastoid effusions. The orbits are unremarkable. The calvarium is intact. IMPRESSION: No acute intracranial hemorrhage or mass effect. Microvascularischemic changes without definitive acute features. Further characterization with MRI can be obtained if there is no contraindication. Mastoid effusions, likely due to intubation. Infection should be excluded clinically. Signed: Dung Granda [facility] Verified Date/Time: 01/17/2018 13:50:42 Reading Location: [facility] Radiology Reading Room CALCIUM, [id number] 12:36:00 Test Item Value Reference Range Comments CALCIUM IONIZED (BEAKER) (test kpjk=747) 1.09 mmol/L 1.12-1.27 PH, BLOOD (BEAKER) (test yncn=3159) 7.36 GLUCOSE-STAT [id number] 12:36:00 Test Item Value Reference Range Comments GLUCOSE RANDOM (BEAKER) (test lchq=507) 147 mg/dL 70-110 POTASSIUM-STAT [id number] 12:36:00 Test Item Value Reference Range Comments POTASSIUM (BEAKER) (test daan=111) 4.7 meq/L 3.6-5.5 RAD, ABDOMEN/KUB, 1 VIEW [id number] 08:42:00Reason for exam:->ileusShould this be performed at the bedside?->YesFINAL REPORT CLINICAL HISTORY: ileus TECHNIQUE: Supine abdomen COMPARISON: 01/16/2018 IMPRESSION: There is a nasogastric tube in the mid stomach. There is a left femoral line. Thebowel gas pattern is nonspecific with moderate stool in the colon. Free air and air-fluid levels arenot seen but cannot be definitively excluded on the supine view. Signed: Lorna Slade MDReport Verified Date/Time: 01/17/2018 08:42:09 Reading Location: [facility] Radiology Reading Room CBC W/ PLT COUNT & AUTO [id number] 08:18:00 Test Item Value Reference Range Comments WHITE BLOOD CELL COUNT (BEAKER) (test gsnx=495) 22.5 K/ L 3.5-10.5 RED BLOOD CELL COUNT (BEAKER) (test mhjs=264) 2.87 M/ L 4.63-6.08 HEMOGLOBIN (BEAKER) (test wwpt=270) 9.0 GM/DL 13.7-17.5 HEMATOCRIT (BEAKER) (test jjsx=369) 27.4 % 40.1-51.0 MEAN CORPUSCULAR VOLUME (BEAKER) (test hesq=884) 95.5 fL 79.0-92.2 MEAN CORPUSCULAR HEMOGLOBIN (BEAKER) (test 31.4 pg 25.7-32.2 tzop=966) MEAN CORPUSCULAR HEMOGLOBIN CONC (BEAKER) (test 32.8 GM/DL 32.3-36.5 ydoo=389) RED CELL DISTRIBUTION WIDTH (BEAKER) (test 18.8 % 11.6-14.4 bqku=483) PLATELET COUNT (BEAKER) (test gqrh=990) 63 K/CU MM 150-450 MEAN PLATELET VOLUME (BEAKER) (test mmgy=366) 11.1 fL 9.4-12.4 NUCLEATED RED BLOOD CELLS (BEAKER) (test 6 /100 WBC 0-0 qobg=850) HEPARIN ASSAY - [id number] 08:07:00 Test Item Value Reference Range Comments UNFRACTIONATED HEPARIN-ANTI 10A (BEAKER) (test < u/ml 0.30-0.70 ywxe=9765) Recommendations for Monitoring Unfractionated Heparin Therapeutic Range: 0.3- 0.7 u/mL with continuous IV infusionPOCT-GLUCOSE [id number] 06:09:00 Test Item Value Reference Range Comments POC-GLUCOSE METER (BEAKER) 143 mg/dL 70-110 TESTED AT [address] (test odqm=4589) [facility] [address] RAD, CHEST, 1 VIEW, NON [id number] 04:43:00Reason for exam:->acute respiratory insufficiencyShould this be performed at the bedside?->YesFINAL REPORT RAD, CHEST, 1 VIEW, NON DEPT INDICATION: acute respiratory insufficiency COMPARISON: Prior day's exam FINDINGS: Portable frontal view of the chest. IMPRESSION: Support Lines: Stable. Lungs and pleura: Scattered subsegmental atelectasis. No visible pneumothorax.Heart and mediastinum: Stable contours. Stable surgical changes.Additional findings: None. Signed: JR Platt Robert MDReport Verified Date/Time: 01/17/2018 04:43:34 Reading Location: [facility] B1 O380LYG Body Reading Room OXYGEN SATURATION, [id number] 04:13:00 Test Item Value Reference Range Comments O2 SATURATION (MEASURED) (BEAKER) (test tafi=7347) 85.7 % [id number] 04:06:00 Test Item Value Reference Range Comments PHOSPHORUS (BEAKER) (test jnhs=700) 3.1 mg/dL 2.3-4.7 [id number] 04:06:00 Test Item Value Reference Range Comments MAGNESIUM (BEAKER) (test wsnh=721) 2.1 mg/dL 1.6-2.6 COMPREHENSIVE METABOLIC [id number] 04:06:00 Test Item Value Reference Range Comments TOTAL PROTEIN (BEAKER) 5.2 gm/dL 6.0-8.3 (test eyzr=018) ALBUMIN (BEAKER) (test 2.8 g/dL 3.5-5.0 frga=4376) ALKALINE PHOSPHATASE 60 U/L 40-150 (BEAKER) (test eokb=896) BILIRUBIN TOTAL (BEAKER) 9.1 mg/dL 0.2-1.2 (test ezru=529) SODIUM (BEAKER) (test 135 meq/L 136-145 rizn=197) POTASSIUM (BEAKER) (test 4.7 meq/L 3.5-5.1 fmaa=225) CHLORIDE (BEAKER) (test 102 meq/L 98-107 telz=471) CO2 (BEAKER) (test 24 meq/L 22-29 fdpj=416) BLOOD UREA NITROGEN 22 mg/dL 7-21 (BEAKER) (test gpmt=902) CREATININE (BEAKER) (test 1.47 mg/dL 0.57-1.25 cumx=220) GLUCOSE RANDOM (BEAKER) 144 mg/dL 70-105 (test lbeo=067) CALCIUM (BEAKER) (test 8.5 mg/dL 8.4-10.2 bgqs=153) AST (SGOT) (BEAKER) (test 64 U/L 5-34 jpkz=459) ALT (SGPT) (BEAKER) (test 250 U/L 6-55 mzuu=925) EGFR (BEAKER) (test 59 mL/min/1.73 sq m ESTIMATED GFR IS NOT epio=0110) ACCURATE CREATININE CLEARANCE IN PREDICTING GLOMERULAR FILTRATION RATE. ESTIMATED GFR IS NOT APPLICABLE FOR DIALYSIS PATIENTS. Specimen moderately ictericHEPATIC FUNCTION [id number] 04:06:00 Test Item Value Reference Range Comments TOTAL PROTEIN (BEAKER) (test gyep=701) 5.2 gm/dL 6.0-8.3 ALBUMIN (BEAKER) (test clli=4046) 2.8 g/dL 3.5-5.0 BILIRUBIN TOTAL (BEAKER) (test swqq=290) 9.1 mg/dL 0.2-1.2 BILIRUBIN DIRECT (BEAKER) (test bhei=788) 7.4 mg/dL 0.1-0.5 ALKALINE PHOSPHATASE (BEAKER) (test fvwf=504) 60 U/L 40-150 AST (SGOT) (BEAKER) (test vrvw=075) 64 U/L 5-34 ALT (SGPT) (BEAKER) (test echy=326) 250 U/L 6-55 Specimen moderately ictericLACTIC ACID, ARTERIAL, WHOLE [id number] 03:59:00 Test Item Value Reference Range Comments LACTATE BLOOD ARTERIAL (2) 0.5 mmol/L 0.5-2.2 Specimen slightly hemolyzed (BEAKER) (test ytwe=1661) Effective 01/04/2016: Units/Reference Range ChangeNew: 0.5-2.2 mmol/L Previous: 5 -20 mg/dLSpecimen moderately ictericBLOOD GAS, [id number] 03:58:00 Test Item Value Reference Range Comments PH ARTERIAL (BEAKER) (test ecob=719) 7.42 7.35-7.45 PCO2 ARTERIAL (BEAKER) (test lpyi=960) 40 mmHg 35-45 PO2 ARTERIAL (BEAKER) (test avvo=900) 131 mmHg 80-90 O2 SATURATION ARTERIAL (BEAKER) (test vqcv=222) 98.8 % 96.0-97.0 HCO3 ARTERIAL (BEAKER) (test olde=046) 26 mmol/L 21-29 BASE EXCESS ARTERIAL (BEAKER) (test izws=253) 0.8 mmol/L -2.0-3.0 PATIENT TEMPERATURE (BEAKER) (test gqyw=2966) 35.6 C FIO2 (BEAKER) (test zvtw=7434) 40.0 % CALCIUM, [id number] 03:58:00 Test Item Value Reference Range Comments CALCIUM IONIZED (BEAKER) (test ptos=644) 1.14 mmol/L 1.12-1.27 PH, BLOOD (BEAKER) (test rcav=7310) 7.41 POCT-GLUCOSE [id number] 02:41:00 Test Item Value Reference Range Comments POC-GLUCOSE METER (BEAKER) 144 mg/dL 70-110 TESTED AT [facility] [address] [facility] (test akuq=9977) [facility] [address] POCT-GLUCOSE [id number] 00:30:00 Test Item Value Reference Range Comments POC-GLUCOSE METER (BEAKER) 171 mg/dL 70-110 TESTED AT [address] (test dtkl=5995) [facility] [address] POTASSIUM-STAT [id number] 00:08:00 Test Item Value Reference Range Comments POTASSIUM (BEAKER) (test phui=105) 4.5 meq/L 3.6-5.5 POCT-GLUCOSE [id number] 23:30:00 Test Item Value Reference Range Comments POC-GLUCOSE METER (BEAKER) 159 mg/dL 70-110 TESTED AT [address] (test rwmc=8447) [facility] [address] POCT-GLUCOSE [id number] 21:08:00 Test Item Value Reference Range Comments POC-GLUCOSE METER (BEAKER) 194 mg/dL 70-110 TESTED AT [address] (test lgqh=3519) [facility] [address] POCT-GLUCOSE [id number] 21:08:00 Test Item Value Reference Range Comments POC-GLUCOSE METER (BEAKER) 230 mg/dL 70-110 TESTED AT [address] (test adpq=8252) [facility] [address] CALCIUM, [id number] 19:23:00 Test Item Value Reference Range Comments CALCIUM IONIZED (BEAKER) (test egzv=036) 1.14 mmol/L 1.12-1.27 PH, BLOOD (BEAKER) (test cmra=0966) 7.36 POTASSIUM-STAT [id number] 19:23:00 Test Item Value Reference Range Comments POTASSIUM (BEAKER) (test kclp=104) 5.1 meq/L 3.6-5.5 [id number] 17:27:00 Test Item Value Reference Range Comments PHOSPHORUS (BEAKER) (test mejm=253) 2.2 mg/dL 2.3-4.7 [id number] 17:27:00 Test Item Value Reference Range Comments MAGNESIUM (BEAKER) (test bhhv=977) 2.1 mg/dL 1.6-2.6 PH, [id number] 17:03:00 Test Item Value Reference Range Comments PH ARTERIAL (BEAKER) (test ivbq=167) 7.39 7.35-7.45 POCT-GLUCOSE [id number] 16:43:00 Test Item Value Reference Range Comments POC-GLUCOSE METER (BEAKER) 95 mg/dL 70-110 TESTED AT [address] (test vpds=6440) [place] [id number] POCT-GLUCOSE [id number] 14:41:00 Test Item Value Reference Range Comments POC-GLUCOSE METER (BEAKER) 134 mg/dL 70-110 TESTED AT [address] (test fuex=9333) [place] [id number] RAD, ABDOMEN/KUB, 1 VIEW [id number] 13:16:00Reason for exam:-> constipationShould this be performed at the bedside?->YesFINAL REPORT EXAM: AP abdominal radiograph HISTORY PROVIDED: Constipation COMPARISON: None available IMPRESSION:There are dilated loops of probably large bowel with only a modestamount of stool seen within the colon such that a distal bowel obstruction is not excluded. If clinically indicated, a CT could be performed for further evaluation. This examination is insensitive for the detection of free air. The tip of an enteric tube projects over the expected location of the stomach. A presumed left femoral catheter has its tip projecting just lateral to the L3 vertebral body. No acute osseous abnormality. Signed: Kay Walter [facility] Verified Date/Time: 01/16/2018 13:16:27 Reading Location: [facility] [address] [place] Reading Room Electronically signed by: KAY WALTER on01/16/2018 01:16 PMCALCIUM, [id number] 12:38:00 Test Item Value Reference Range Comments CALCIUM IONIZED (BEAKER) (test kzrw=024) 1.14 mmol/L 1.12-1.27 PH, BLOOD (BEAKER) (test wuhn=2446) 7.40 POCT-GLUCOSE [id number] 12:29:00 Test Item Value Reference Range Comments POC-GLUCOSE METER (BEAKER) 127 mg/dL 70-110 TESTED AT [address] (test utmy=8868) [place] [id number] POCT-GLUCOSE [id number] 10:34:00 Test Item Value Reference Range Comments POC-GLUCOSE METER (BEAKER) 130 mg/dL 70-110 TESTED AT [address] (test vzcj=4660) [facility] [address] POCT-GLUCOSE [id number] 09:10:00 Test Item Value Reference Range Comments POC-GLUCOSE METER (BEAKER) 151 mg/dL 70-110 TESTED AT [facility] [address] (test aawh=3570) [facility] [address] HEPARIN ASSAY - [id number] 09:00:00 Test Item Value Reference Range Comments UNFRACTIONATED HEPARIN-ANTI 10A (BEAKER) (test < u/ml 0.30-0.70 ruqx=3733) Recommendations for Monitoring Unfractionated Heparin Therapeutic Range: 0.3- 0.7 u/mL with continuous IV infusionCBC W/PLT COUNT & AUTO [id number] 08:55:00 Test Item Value Reference Range Comments WHITE BLOOD CELL COUNT (BEAKER) (test pndi=734) 11.9 K/ L 3.5-10.5 RED BLOOD CELL COUNT (BEAKER) (test jzgk=658) 2.64 M/ L 4.63-6.08 HEMOGLOBIN (BEAKER) (test mvpa=381) 8.4 GM/DL 13.7-17.5 HEMATOCRIT (BEAKER) (test ttaj=669) 25.2 % 40.1-51.0 MEAN CORPUSCULAR VOLUME (BEAKER) (test pfsx=034) 95.5 fL 79.0-92.2 MEAN CORPUSCULAR HEMOGLOBIN (BEAKER) (test 31.8 pg 25.7-32.2 hcjz=442) MEAN CORPUSCULAR HEMOGLOBIN CONC (BEAKER) (test 33.3 GM/DL 32.3-36.5 gybm=888) RED CELL DISTRIBUTION WIDTH (BEAKER) (test 18.5 % 11.6-14.4 snuk=906) PLATELET COUNT (BEAKER) (test cbjp=065) 45 K/CU MM 150-450 MEAN PLATELET VOLUME (BEAKER) (test uxxr=229) 11.2 fL 9.4-12.4 NUCLEATED RED BLOOD CELLS (BEAKER) (test 9 /100 WBC 0-0 kcbs=005) OXYGEN SATURATION, [id number] 08:30:00 Test Item Value Reference Range Comments O2 SATURATION (MEASURED) (BEAKER) (test rbae=6520) 87.1 % RAD, CHEST, 1 VIEW, NON [id number] 08:11:00Reason for exam:->acute respiratory insufficiencyShould this be performed at the bedside?->YesFINAL REPORT CLINICAL HISTORY: acute respiratory insufficiency TECHNIQUE: 1 view of the chest. COMPARISON: 01/15/2018 IMPRESSION: The Medford-Moni catheter has been removed. The supporting lines and tubes are otherwise unchanged. There is no pneumothorax. Mild bilateral perihilar lung opacities have decreased. The cardiomediastinal silhouette is magnified by technique with sternotomy wires. Signed: Lorna Slade MDReport Verified Date/Time: 2017 08:11:02 Reading Location: [facility] Radiology Reading Room POCT- GLUCOSE [id number] 06:43:00 Test Item Value Reference Range Comments POC-GLUCOSE METER (BEAKER) 107 mg/dL 70-110 TESTED AT [address] (test udwc=7921) [facility] [address] U/S, ABDOMINAL, [id number] 05:25:00Abdomen limited area? Add comment if clarification is needed.->LiverReason for exam:->High LFTsFINAL REPORT INDICATION: High LFTs COMPARISON: None TECHNIQUE: Real- time transabdominal castillo scale and color Doppler ultrasound of the abdominal right upper quadrant. FINDINGS:Liver: Size: 17.5cm. Echogenicity: Normal. Masses/lesions: None. Surface Nodularity: None. Intrahepatic bile ducts: Normal. Common bile duct: 0.5cm. MPV: 1.3cm. Gallbladder: Stones: None. Sludge: Present. Wall thickness: 0.3 cm. The gallbladder is nondistended. Pericholecystic fluid: None. Sonographic Guzmán's sign: Not assessed secondary to sedation. Pancreas: Head and uncinate process: Unremarkable. Body and tail: Not well-seen. Right kidney: Size: 9.1 x 3.3 x 3.2 cm. Parenchyma: Normal echogenicity. No cysts. No stones. Hydronephrosis: None. Ascites: None. Regional Vasculature: The visible abdominal aorta, IVC and hepaticveins are patent. Additional Findings: None. IMPRESSION: Unremarkable right upper quadrant ultrasound. Signed: JR Lc, Juliana ALMAeport Verified Date/ Time: 01/16/2018 05:25:06 Reading Location: [facility] B1 C013Y CT Body Reading Room LACTIC ACID, ARTERIAL, WHOLE [id number] 04:06:00 Test Item Value Reference Range Comments LACTATE BLOOD ARTERIAL (2) (BEAKER) (test 0.6 mmol/L 0.5-2.2 ziya=6645) Effective 01/04/2016: Units/Reference Range ChangeNew: 0.5-2.2 mmol/L Previous: 5 -20 mg/dLSpecimen moderately [id number] 04:00:00 Test Item Value Reference Range Comments PHOSPHORUS (BEAKER) (test qagg=618) 2.2 mg/dL 2.3-4.7 [id number] 04:00:00 Test Item Value Reference Range Comments MAGNESIUM (BEAKER) (test lhjr=321) 2.0 mg/dL 1.6-2.6 [id number] 04:00:00 Test Item Value Reference Range Comments CALCIUM (BEAKER) (test oqad=873) 8.5 mg/dL 8.4-10.2 COMPREHENSIVE METABOLIC [id number] 04:00:00 Test Item Value Reference Range Comments TOTAL PROTEIN (BEAKER) 5.0 gm/dL 6.0-8.3 (test qbsm=041) ALBUMIN (BEAKER) (test 2.7 g/dL 3.5-5.0 etmr=2165) ALKALINE PHOSPHATASE 45 U/L 40-150 (BEAKER) (test iymn=928) BILIRUBIN TOTAL (BEAKER) 7.3 mg/dL 0.2-1.2 (test cqce=727) SODIUM (BEAKER) (test 136 meq/L 136-145 dgbu=216) POTASSIUM (BEAKER) (test 4.3 meq/L 3.5-5.1 busv=891) CHLORIDE (BEAKER) (test 105 meq/L 98-107 nvnx=947) CO2 (BEAKER) (test 25 meq/L 22-29 tnza=007) BLOOD UREA NITROGEN 24 mg/dL 7-21 (BEAKER) (test vavu=048) CREATININE (BEAKER) (test 1.44 mg/dL 0.57-1.25 quse=380) GLUCOSE RANDOM (BEAKER) 102 mg/dL 70-105 (test bihs=942) CALCIUM (BEAKER) (test 8.5 mg/dL 8.4-10.2 kznn=274) AST (SGOT) (BEAKER) (test 107 U/L 5-34 isvg=768) ALT (SGPT) (BEAKER) (test 351 U/L 6-55 wsoq=823) EGFR (BEAKER) (test 61 mL/min/1.73 sq m ESTIMATED GFR IS NOT qayv=8415) ACCURATE CREATININE CLEARANCE IN PREDICTING GLOMERULAR FILTRATION RATE. ESTIMATED GFR IS NOT APPLICABLE FOR DIALYSIS PATIENTS. Specimen moderately ictericHEPATIC FUNCTION [id number] 04:00:00 Test Item Value Reference Range Comments TOTAL PROTEIN (BEAKER) (test diqn=082) 5.0 gm/dL 6.0-8.3 ALBUMIN (BEAKER) (test onze=1650) 2.7 g/dL 3.5-5.0 BILIRUBIN TOTAL (BEAKER) (test uxsi=483) 7.3 mg/dL 0.2-1.2 BILIRUBIN DIRECT (BEAKER) (test rppb=165) 6.0 mg/dL 0.1-0.5 ALKALINE PHOSPHATASE (BEAKER) (test fhub=904) 45 U/L 40-150 AST (SGOT) (BEAKER) (test zrjf=530) 107 U/L 5-34 ALT (SGPT) (BEAKER) (test qkfd=505) 351 U/L 6-55 Specimen moderately ictericBLOOD GAS, [id number] 03:51:00 Test Item Value Reference Range Comments PH ARTERIAL (BEAKER) (test bjte=855) 7.43 7.35-7.45 PCO2 ARTERIAL (BEAKER) (test gsls=718) 41 mmHg 35-45 PO2 ARTERIAL (BEAKER) (test pxrb=561) 158 mmHg 80-90 O2 SATURATION ARTERIAL (BEAKER) (test hvtx=252) 99.1 % 96.0-97.0 HCO3 ARTERIAL (BEAKER) (test phae=836) 27 mmol/L 21-29 BASE EXCESS ARTERIAL (BEAKER) (test fvbz=253) 2.1 mmol/L -2.0-3.0 PATIENT TEMPERATURE (BEAKER) (test buae=9120) 36.1 C FIO2 (BEAKER) (test qcgu=6467) 60.0 % PROTHROMBIN [id number] 03:51:00 Test Item Value Reference Range Comments PROTIME (BEAKER) (test fyqb=385) 15.2 seconds 11.7-14.7 INR (BEAKER) (test uxfs=255) 1.2 <=5.9 RECOMMENDED COUMADIN/WARFARIN INR THERAPY RANGESSTANDARD DOSE: 2.0 - 3.0 Includes: PROPHYLAXIS forvenous thrombosis, systemic embolization; TREATMENT for venous thrombosis and/or pulmonary embolus.HIGH RISK: Target INR is 2.5-3.5 for patients with mechanical heart valves.CALCIUM, [id number] 03:51:00 Test Item Value Reference Range Comments CALCIUM IONIZED (BEAKER) (test yevu=057) 1.17 mmol/L 1.12-1.27 PH, BLOOD (BEAKER) (test bsoa=7497) 7.42 POCT-GLUCOSE [id number] 02:08:00 Test Item Value Reference Range Comments POC-GLUCOSE METER (BEAKER) 110 mg/dL 70-110 TESTED AT [address] (test tkwi=2254) [facility] [id number] POCT-GLUCOSE [id number] 01:14:00 Test Item Value Reference Range Comments POC-GLUCOSE METER (BEAKER) 107 mg/dL 70-110 TESTED AT [address] (test exdl=3515) [facility] [id number] POCT-GLUCOSE [id number] 00:29:00 Test Item Value Reference Range Comments POC-GLUCOSE METER (BEAKER) 129 mg/dL 70-110 TESTED AT [address] (test nsnf=2519) [facility] [id number] POCT-GLUCOSE [id number] 23:07:00 Test Item Value Reference Range Comments POC-GLUCOSE METER (BEAKER) 152 mg/dL 70-110 TESTED AT [address] (test wfrc=2052) [facility] [address] POCT-GLUCOSE [id number] 22:09:00 Test Item Value Reference Range Comments POC-GLUCOSE METER (BEAKER) 171 mg/dL 70-110 TESTED AT [address] (test epis=5091) [facility] [address] POCT-GLUCOSE [id number] 21:13:00 Test Item Value Reference Range Comments POC-GLUCOSE METER (BEAKER) 171 mg/dL 70-110 TESTED AT [address] (test atol=4563) [facility] [address] CALCIUM, [id number] 20:50:00 Test Item Value Reference Range Comments CALCIUM IONIZED (BEAKER) (test etxz=430) 1.15 mmol/L 1.12-1.27 PH, BLOOD (BEAKER) (test nibl=0097) 7.34 POCT-GLUCOSE [id number] 20:21:00 Test Item Value Reference Range Comments POC-GLUCOSE METER (BEAKER) 206 mg/dL 70-110 TESTED AT [address] (test bhhe=4991) [facility] [address] POCT-GLUCOSE [id number] 19:16:00 Test Item Value Reference Range Comments POC-GLUCOSE METER (BEAKER) 197 mg/dL 70-110 TESTED AT [address] (test wlkh=8573) [facility] [address] [id number] 17:15:00 Test Item Value Reference Range Comments PHOSPHORUS (BEAKER) (test jjmw=758) 4.1 mg/dL 2.3-4.7 [id number] 17:15:00 Test Item Value Reference Range Comments MAGNESIUM (BEAKER) (test oawu=811) 1.9 mg/dL 1.6-2.6 EEG AWAKE AND [id number] 14:56:00For STAT EEG- after 5 PM weekdays, weekends and holidays, page the on-call EEG TechReason for exam:->AMSShould this be performed at the bedside?->YesDate(s) of EE01/15/2018DATE OF REPORT : 01/15/2018ACC: [id number] Number: [id number] Location: Inpatient ICUStart time: 13:18Stop time: 13:40ICD-10: R41.82CPT Code: 91971 HISTORY: 62 y/o man with hxof AFib, ESRD on HD, HIV, DMII, respiratory insufficiency, cardiogenic shock now intubated and sedated with altered mental status MEDICATIONS THAT COULD AFFECT EEG: propofol, fentanyl TECHNICAL SUMMARY: This is a digital video- EEG recorded with 32 input channels reviewed with bipolar and referential montages using the modified combinatorial system nomenclature. DESCRIPTION OF RECORD: No occipital dominant rhythm or organized amplitude frequency gradient are present. The background consists primarily of low to medium voltage (20-30 microvolt) polymorphic 1.5-3 Hz delta activity with rare faster frequencies admixed in the background. No background reactivity to external stimulation is observed. No normal sleep architectures are seen. SIGNIFICANT VIDEO EVENTS: None SIGNIFICANT ELECTROCARDIOGRAM EVENTS: The EKG shows a regular rate and tachycardia at a rate of 100-105 bpm. HV: Hyperventilation was not performed. PHOTIC STIMULATION: Photic stimulation was done from 3-18 Hz; no photic driving was seen; photoparoxysmal responses were absent. IMPRESSION: Abnormal EEG in coma 1. No occipital dominant rhythm 2. Generalized polymorphic delta background slowing, nonreactive 3. Abnormal EKG CLINICAL CORRELATION: The background slowing in this record is consistent with severe encephalopathy which may in part be related to sedation. An EEG without epileptiform discharges does not exclude the possibility of epilepsy. Taisha Joiner MDNeurophysiology Fellow Mikhail Kwon MD, MSClinical Neurophysiology/Epilepsy Attending 02: 56 PMHEPARIN [id number] 13:21:00 Test Item Value Reference Range Comments HEPARIN ANTIBODY (TSAT Group) (test mewp=276) Negative Negative HEPARIN ANTIBODY OD (TSAT Group) (test kdzf=1489) 0.076 <0.400 4T TOTAL SCORE (TSAT Group) (test suji=8560) 5 Probability of HIT based on scoring system: 6-8=High probability; 4-5= intermediate probability; 0-3=low probabilityPOCT-GLUCOSE [id number] 12:26: 00 Test Item Value Reference Range Comments POC-GLUCOSE METER (TSAT Group) 128 mg/dL 70-110 TESTED AT [facility] [address] [facility] (test jzlu=2981) [facility] [address] FIBRIN SOLUBLE [id number] 11:02:00 Test Item Value Reference Range Comments FIBRIN SOLUBLE MONOMER (BEAKER) (test prxn=6768) Negative HEPARIN ASSAY - [id number] 10:20:00 Test Item Value Reference Range Comments UNFRACTIONATED HEPARIN-ANTI 10A (BEAKER) (test < u/ml 0.30-0.70 ydfp=8938) Recommendations for Monitoring Unfractionated Heparin Therapeutic Range: 0.3- 0.7 u/mL with continuous IV [id number] 10:14:00 Test Item Value Reference Range Comments D-DIMER QUANTITATIVE (BEAKER) (test wkzi=807) 3.76 MG/L FEU <0.50 Intended Use: The D-Dimer Assay can be used to aid in the diagnosis of Deep Vein Thrombosis (DVT) and Pulmonary Embolism Disease (PED).In patients with low pre-test probability, various studies concerning STA Liatest D-dimer test have reported that with a cutoff value of 0.50 MG/L FEU, the Negative Predictive Value (NPV) regarding the exclusion of thrombosis is within 95-100% range.GLUCOSE-STAT [id number] 10:03:00 Test Item Value Reference Range Comments GLUCOSE RANDOM (BEAKER) (test gfky=511) 151 mg/dL 70-110 CALCIUM, [id number] 10:02:00 Test Item Value Reference Range Comments CALCIUM IONIZED (BEAKER) (test qwoi=791) 1.13 mmol/L 1.12-1.27 PH, BLOOD (BEAKER) (test ebtv=1337) 7.36 POTASSIUM-STAT [id number] 10:01:00 Test Item Value Reference Range Comments POTASSIUM (BEAKER) (test zwta=046) 4.3 meq/L 3.6-5.5 CBC W/PLT COUNT & AUTO [id number] 07:43:00 Test Item Value Reference Range Comments WHITE BLOOD CELL COUNT (BEAKER) (test eguz=606) 14.7 K/ L 3.5-10.5 RED BLOOD CELL COUNT (BEAKER) (test pewl=645) 2.90 M/ L 4.63-6.08 HEMOGLOBIN (BEAKER) (test cmay=700) 9.0 GM/DL 13.7-17.5 HEMATOCRIT (BEAKER) (test vcgo=542) 27.4 % 40.1-51.0 MEAN CORPUSCULAR VOLUME (BEAKER) (test gcgg=186) 94.5 fL 79.0-92.2 MEAN CORPUSCULAR HEMOGLOBIN (BEAKER) (test 31.0 pg 25.7-32.2 nywj=476) MEAN CORPUSCULAR HEMOGLOBIN CONC (BEAKER) (test 32.8 GM/DL 32.3-36.5 zeyb=195) RED CELL DISTRIBUTION WIDTH (BEAKER) (test 18.7 % 11.6-14.4 koyf=693) PLATELET COUNT (BEAKER) (test dvpz=703) 42 K/CU MM 150-450 MEAN PLATELET VOLUME (BEAKER) (test hspw=886) 11.2 fL 9.4-12.4 NUCLEATED RED BLOOD CELLS (BEAKER) (test 13 /100 WBC 0-0 oivx=787) NEUTROPHILS RELATIVE PERCENT (BEAKER) (test 87 % wtwv=869) LYMPHOCYTES RELATIVE PERCENT (BEAKER) (test 3 % wvay=503) MONOCYTES RELATIVE PERCENT (BEAKER) (test 9 % alau=407) EOSINOPHILS RELATIVE PERCENT (BEAKER) (test 0 % vmfc=404) BASOPHILS RELATIVE PERCENT (BEAKER) (test 0 % pnqk=280) NEUTROPHILS ABSOLUTE COUNT (BEAKER) (test 12.77 K/ L 1.78-5.38 yvtb=030) LYMPHOCYTES ABSOLUTE COUNT (BEAKER) (test 0.46 K/ L 1.32-3.57 ehop=506) MONOCYTES ABSOLUTE COUNT (BEAKER) (test 1.25 K/ L 0.30-0.82 htzu=994) EOSINOPHILS ABSOLUTE COUNT (BEAKER) (test 0.00 K/ L 0.04-0.54 erdi=397) BASOPHILS ABSOLUTE COUNT (BEAKER) (test 0.01 K/ L 0.01-0.08 tjfj=408) IMMATURE GRANULOCYTES-RELATIVE PERCENT (BEAKER) 2 % 0-1 (test nxxc=8448) RAD, CHEST, 1 VIEW, NON [id number] 04:00:00Reason for exam:->acute respiratory insufficiencyShould this be performed at the bedside?-> YesAddendum BeginsREPORT STATUS:A Correction: Comparison is made to previous dated 01/14/2018. Signed: Kellen Parra MDReport Verified Date/Time: 01/15/2018 04:00:43 Reading Location: [address] Reading RoomAddendum EndsFINAL REPORT CLINICAL INDICATION: Respiratory insufficiency Comparison: 01/15/2018 The cardiomediastinal contours are stable. Central pulmonary vascular congestion and bilateral parenchymal opacities are unchanged. There is no pneumothorax. Support lines are stable. Signed: Kellen Parra MDReport Verified Date/Time: 03:46:27 Reading Location: [address] Reading Room [id number] 03:36:00 Test Item Value Reference Range Comments PHOSPHORUS (BEAKER) (test rpai=504) 2.7 mg/dL 2.3-4.7 [id number] 03:36:00 Test Item Value Reference Range Comments MAGNESIUM (BEAKER) (test rmxi=549) 2.0 mg/dL 1.6-2.6 COMPREHENSIVE METABOLIC [id number] 03:36:00 Test Item Value Reference Range Comments TOTAL PROTEIN (BEAKER) 5.2 gm/dL 6.0-8.3 (test sbbl=148) ALBUMIN (BEAKER) (test 2.9 g/dL 3.5-5.0 ejft=8596) ALKALINE PHOSPHATASE 44 U/L 40-150 (BEAKER) (test xwkq=225) BILIRUBIN TOTAL (BEAKER) 5.6 mg/dL 0.2-1.2 (test cdsb=083) SODIUM (BEAKER) (test 137 meq/L 136-145 kqka=822) POTASSIUM (BEAKER) (test 4.4 meq/L 3.5-5.1 oszn=010) CHLORIDE (BEAKER) (test 104 meq/L 98-107 khse=104) CO2 (BEAKER) (test 23 meq/L 22-29 yxub=893) BLOOD UREA NITROGEN 27 mg/dL 7-21 (BEAKER) (test ewbj=440) CREATININE (BEAKER) (test 1.65 mg/dL 0.57-1.25 hwvz=834) GLUCOSE RANDOM (BEAKER) 134 mg/dL 70-105 (test slta=745) CALCIUM (BEAKER) (test 9.1 mg/dL 8.4-10.2 gxas=723) AST (SGOT) (BEAKER) (test 315 U/L 5-34 fvxm=175) ALT (SGPT) (BEAKER) (test 665 U/L 6-55 xqol=584) EGFR (BEAKER) (test 52 mL/min/1.73 sq m ESTIMATED GFR IS NOT ynuc=4027) ACCURATE CREATININE CLEARANCE IN PREDICTING GLOMERULAR FILTRATION RATE. ESTIMATED GFR IS NOT APPLICABLE FOR DIALYSIS PATIENTS. Specimen slightly ictericHEPATIC FUNCTION [id number] 03:36:00 Test Item Value Reference Range Comments TOTAL PROTEIN (BEAKER) (test ybaq=115) 5.2 gm/dL 6.0-8.3 ALBUMIN (BEAKER) (test hjkr=9395) 2.9 g/dL 3.5-5.0 BILIRUBIN TOTAL (BEAKER) (test eqor=754) 5.6 mg/dL 0.2-1.2 BILIRUBIN DIRECT (BEAKER) (test rxvy=681) 4.4 mg/dL 0.1-0.5 ALKALINE PHOSPHATASE (BEAKER) (test tmcm=165) 44 U/L 40-150 AST (SGOT) (BEAKER) (test tizm=508) 315 U/L 5-34 ALT (SGPT) (BEAKER) (test ovov=562) 665 U/L 6-55 Specimen slightly ictericPROTHROMBIN [id number] 03:35:00 Test Item Value Reference Range Comments PROTIME (BEAKER) (test slae=800) 16.5 seconds 11.7-14.7 INR (BEAKER) (test vjvd=405) 1.3 <=5.9 RECOMMENDED COUMADIN/WARFARIN INR THERAPY RANGESSTANDARD DOSE: 2.0 - 3.0 Includes: PROPHYLAXIS forvenous thrombosis, systemic embolization; TREATMENT for venous thrombosis and/or pulmonary embolus.HIGH RISK: Target INR is 2.5-3.5 for patients with mechanical heart valves.LACTIC ACID, ARTERIAL, WHOLE [id number] 03:30:00 Test Item Value Reference Range Comments LACTATE BLOOD ARTERIAL (2) 0.8 mmol/L 0.5-2.2 Specimen slightly hemolyzed (BEAKER) (test xsct=4659) Effective 01/04/2016: Units/Reference Range ChangeNew: 0.5-2.2 mmol/L Previous: 5 -20 mg/dLSpecimen slightly ictericBLOOD GAS, [id number] 03:29:00 Test Item Value Reference Range Comments PH ARTERIAL (BEAKER) (test xeom=798) 7.36 7.35-7.45 PCO2 ARTERIAL (BEAKER) (test ezsx=153) 45 mmHg 35-45 PO2 ARTERIAL (BEAKER) (test nlor=053) 114 mmHg 80-90 O2 SATURATION ARTERIAL (BEAKER) (test lngn=952) 98.0 % 96.0-97.0 HCO3 ARTERIAL (BEAKER) (test nwqh=621) 25 mmol/L 21-29 BASE EXCESS ARTERIAL (BEAKER) (test iwik=339) -0.6 mmol/L -2.0-3.0 PATIENT TEMPERATURE (BEAKER) (test fmlz=0576) 37.0 C FIO2 (BEAKER) (test lcwo=2273) 40.0 % OXYGEN SATURATION, [id number] 03:26:00 Test Item Value Reference Range Comments O2 SATURATION (MEASURED) (BEAKER) (test dbqs=2574) 72.5 % CALCIUM, [id number] 00:17:00 Test Item Value Reference Range Comments CALCIUM IONIZED (BEAKER) (test htle=401) 1.19 mmol/L 1.12-1.27 PH, BLOOD (BEAKER) (test zpkx=6844) 7.36 POCT-GLUCOSE [id number] 00:15:00 Test Item Value Reference Range Comments POC-GLUCOSE METER (BEAKER) 144 mg/dL 70-110 TESTED AT [address] (test lmrv=0271) [facility] [address] POCT-GLUCOSE [id number] 22:43:00 Test Item Value Reference Range Comments POC-GLUCOSE METER (BEAKER) 98 mg/dL 70-110 TESTED AT [address] (test gyfp=4007) [facility] [address] POCT-GLUCOSE [id number] 22:43:00 Test Item Value Reference Range Comments POC-GLUCOSE METER (BEAKER) 80 mg/dL 70-110 TESTED AT [address] (test hcwz=5578) [facility] [address] VANCOMYCIN LEVEL, [id number] 20:20:00 Test Item Value Reference Range Comments VANCOMYCIN TROUGH (BEAKER) (test rjme=431) 20.1 ug/mL 10.0-20.0 Before vanc [id number] 16:52:00 Test Item Value Reference Range Comments PHOSPHORUS (BEAKER) (test pyoi=642) 1.7 mg/dL 2.3-4.7 [id number] 16:52:00 Test Item Value Reference Range Comments MAGNESIUM (BEAKER) (test ypaw=966) 2.3 mg/dL 1.6-2.6 [id number] 16:39:00 Test Item Value Reference Range Comments AMMONIA (BEAKER) (test mwqg=146) 32 mol/L 18-72 PH, [id number] 16:01:00 Test Item Value Reference Range Comments PH ARTERIAL (BEAKER) (test sjrm=822) 7.42 7.35-7.45 GLUCOSE-STAT [id number] 16:01:00 Test Item Value Reference Range Comments GLUCOSE RANDOM (BEAKER) (test llbp=448) 95 mg/dL 70-110 POTASSIUM-STAT [id number] 16:01:00 Test Item Value Reference Range Comments POTASSIUM (BEAKER) (test zbum=426) 4.3 meq/L 3.6-5.5 CALCIUM, [id number] 16:01:00 Test Item Value Reference Range Comments CALCIUM IONIZED (BEAKER) (test jqzc=063) 1.28 mmol/L 1.12-1.27 PH, BLOOD (BEAKER) (test vhrp=3028) 7.42 CALCIUM, [id number] 12:19:00 Test Item Value Reference Range Comments CALCIUM IONIZED (BEAKER) (test eivi=729) 1.36 mmol/L 1.12-1.27 PH, BLOOD (BEAKER) (test ejfm=6116) 7.41 GLUCOSE-STAT [id number] 12:17:00 Test Item Value Reference Range Comments GLUCOSE RANDOM (BEAKER) (test ehvc=147) 94 mg/dL 70-110 POTASSIUM-STAT [id number] 12:17:00 Test Item Value Reference Range Comments POTASSIUM (BEAKER) (test vqdl=740) 4.3 meq/L 3.6-5.5 [id number] 11:34:00 Test Item Value Reference Range Comments MAGNESIUM (BEAKER) (test ipcr=163) 2.1 mg/dL 1.6-2.6 BASIC METABOLIC [id number] 11:34:00 Test Item Value Reference Range Comments SODIUM (BEAKER) (test 135 meq/L 136-145 gofz=969) POTASSIUM (BEAKER) (test 4.4 meq/L 3.5-5.1 eaxw=866) CHLORIDE (BEAKER) (test 104 meq/L 98-107 lduy=344) CO2 (BEAKER) (test 23 meq/L 22-29 ulox=699) BLOOD UREA NITROGEN 28 mg/dL 7-21 (BEAKER) (test cmef=643) CREATININE (BEAKER) (test 1.69 mg/dL 0.57-1.25 vbvt=296) GLUCOSE RANDOM (BEAKER) 148 mg/dL 70-105 (test qvgs=741) CALCIUM (BEAKER) (test 9.0 mg/dL 8.4-10.2 dmtc=760) EGFR (BEAKER) (test 50 mL/min/1.73 sq m ESTIMATED GFR IS NOT doix=0276) ACCURATE CREATININE CLEARANCE IN PREDICTING GLOMERULAR FILTRATION RATE. ESTIMATED GFR IS NOT APPLICABLE FOR DIALYSIS PATIENTS. Specimen slightly ictericHEPATIC FUNCTION [id number] 11:34:00 Test Item Value Reference Range Comments TOTAL PROTEIN (BEAKER) (test dupb=364) 5.2 gm/dL 6.0-8.3 ALBUMIN (BEAKER) (test meek=7117) 3.0 g/dL 3.5-5.0 BILIRUBIN TOTAL (BEAKER) (test glmu=971) 4.3 mg/dL 0.2-1.2 BILIRUBIN DIRECT (BEAKER) (test jhps=684) 3.3 mg/dL 0.1-0.5 ALKALINE PHOSPHATASE (BEAKER) (test wvfe=114) 39 U/L 40-150 AST (SGOT) (BEAKER) (test dfav=188) 817 U/L 5-34 ALT (SGPT) (BEAKER) (test ijvu=676) 1247 U/L 6-55 Specimen slightly ictericBLOOD GAS, [id number] 09:44:00 Test Item Value Reference Range Comments PH ARTERIAL (BEAKER) (test gvve=443) 7.40 7.35-7.45 PCO2 ARTERIAL (BEAKER) (test huls=861) 46 mmHg 35-45 PO2 ARTERIAL (BEAKER) (test ipaf=737) 238 mmHg 80-90 O2 SATURATION ARTERIAL (BEAKER) (test qnfp=279) 99.5 % 96.0-97.0 HCO3 ARTERIAL (BEAKER) (test wpui=096) 28 mmol/L 21-29 BASE EXCESS ARTERIAL (BEAKER) (test qeay=337) 2.4 mmol/L -2.0-3.0 PATIENT TEMPERATURE (BEAKER) (test mvft=2786) 37.0 C FIO2 (BEAKER) (test brlf=1935) 100.0 % GLUCOSE-STAT [id number] 09:42:00 Test Item Value Reference Range Comments GLUCOSE RANDOM (BEAKER) (test fbap=364) 95 mg/dL 70-110 POTASSIUM-STAT [id number] 09:42:00 Test Item Value Reference Range Comments POTASSIUM (BEAKER) (test oddc=517) 4.5 meq/L 3.6-5.5 CALCIUM, [id number] 09:38:00 Test Item Value Reference Range Comments CALCIUM IONIZED (BEAKER) (test ajso=662) 1.26 mmol/L 1.12-1.27 PH, BLOOD (BEAKER) (test tmfb=6380) 7.41 HEPARIN ASSAY - [id number] 08:44:00 Test Item Value Reference Range Comments UNFRACTIONATED HEPARIN-ANTI 10A (BEAKER) (test < u/ml 0.30-0.70 wfzi=8474) Recommendations for Monitoring Unfractionated Heparin Therapeutic Range: 0.3- 0.7 u/mL with continuous IV infusionGLUCOSE-STAT [id number] 06:41:00 Test Item Value Reference Range Comments GLUCOSE RANDOM (BEAKER) (test gzqt=863) 127 mg/dL 70-110 THROMBOELASTOGRAPH (TEG)2018-01-14 06:14:00 Test Item Value Reference Range Comments TEG ACTIVATED CLOTTING TIME (BEAKER) (test 5.1 minutes 4.0-7.0 cwhh=5404) TEG FIBRINOGEN ACTIVITY (BEAKER) (test 66.3 degrees 61.0-73.0 vghe=3786) TEG PLT. AGGREGATION (BEAKER) (test wkvy=1378) 57.8 MM 55.0-65.0 TEG FIBRINOLYSIS (BEAKER) (test wuuw=7489) 0.0 % 0.0-5.0 TGH ACTIVATED CLOTTING TIME (BEAKER) (test 5.1 minutes 4.0-7.0 fmpt=5472) TGH FIBRINOGEN ACTIVITY (BEAKER) (test 65.6 degrees 61.0-73.0 obng=3866) TGH PLT. AGGREGATION (BEAKER) (test qwud=3283) 56.4 MM 55.0-65.0 TGH FIBRINOLYSIS (BEAKER) (test rujd=9158) 0.0 % 0.0-5.0 [id number] 05:05:00 Test Item Value Reference Range Comments PHOSPHORUS (BEAKER) (test kemg=033) 2.5 mg/dL 2.3-4.7 [id number] 05:05:00 Test Item Value Reference Range Comments MAGNESIUM (BEAKER) (test xlos=610) 2.1 mg/dL 1.6-2.6 HEPATIC FUNCTION [id number] 05:05:00 Test Item Value Reference Range Comments TOTAL PROTEIN (BEAKER) (test oxny=249) 5.2 gm/dL 6.0-8.3 ALBUMIN (BEAKER) (test amxz=2188) 3.0 g/dL 3.5-5.0 BILIRUBIN TOTAL (BEAKER) (test trht=861) 4.3 mg/dL 0.2-1.2 BILIRUBIN DIRECT (BEAKER) (test mgmz=194) 3.4 mg/dL 0.1-0.5 ALKALINE PHOSPHATASE (BEAKER) (test eywa=784) 40 U/L 40-150 AST (SGOT) (BEAKER) (test exfw=598) 815 U/L 5-34 ALT (SGPT) (BEAKER) (test chdu=557) 1266 U/L 6-55 Specimen slightly [id number] 05:05:00 Test Item Value Reference Range Comments CALCIUM (BEAKER) (test xfis=925) 9.0 mg/dL 8.4-10.2 LACTATE DEHYDROGENASE (LDH)2018-01-14 05:05:00 Test Item Value Reference Range Comments LACTATE DEHYDROGENASE (BEAKER) (test rzba=569) 667 U/L 125-220 PROTHROMBIN [id number] 05:05:00 Test Item Value Reference Range Comments PROTIME (BEAKER) (test iacj=548) 15.2 seconds 11.7-14.7 INR (BEAKER) (test qaxi=213) 1.2 <=5.9 RECOMMENDED COUMADIN/WARFARIN INR THERAPY RANGESSTANDARD DOSE: 2.0 - 3.0 Includes: PROPHYLAXIS forvenous thrombosis, systemic embolization; TREATMENT for venous thrombosis and/or pulmonary embolus.HIGH RISK: Target INR is 2.5-3.5 for patients with mechanical heart valves.[id number] 05:05:00 Test Item Value Reference Range Comments FIBRINOGEN LEVEL (BEAKER) (test gghs=726) 280 mg/dl 225-434 RAD, CHEST, 1 VIEW, NON [id number] 04:57:00Reason for exam:->impella/ECMO /intubationShould this be performed at the bedside?->YesFINAL REPORT CLINICAL INDICATION: Support lines. Comparison: 01/13/2018 The cardiomediastinal contours are stable. Cardiac opacities may reflect atelectasis but pneumonitis should be excluded clinically. There is no pneumothorax. Support lines are stable. Signed: Kellen Parra MDReport Verified Date/Time: 01/14/2018 04:57:02 Reading Location: [address] Reading Room LACTIC ACID, ARTERIAL, WHOLE [id number] 04:55:00 Test Item Value Reference Range Comments LACTATE BLOOD ARTERIAL (2) (BEAKER) (test 1.2 mmol/L 0.5-2.2 lzqq=5464) Effective 01/04/2016: Units/Reference Range ChangeNew: 0.5-2.2 mmol/L Previous: 5 -20 mg/dLSpecimen slightly ictericCBC (HEMOGRAM ONLY)2018-01-14 04:45:00 Test Item Value Reference Range Comments WHITE BLOOD CELL COUNT (BEAKER) (test ldju=612) 11.7 K/ L 3.5-10.5 RED BLOOD CELL COUNT (BEAKER) (test tdni=002) 2.83 M/ L 4.63-6.08 HEMOGLOBIN (BEAKER) (test sstx=944) 9.0 GM/DL 13.7-17.5 HEMATOCRIT (BEAKER) (test urzr=761) 26.5 % 40.1-51.0 MEAN CORPUSCULAR VOLUME (BEAKER) (test mxpk=926) 93.6 fL 79.0-92.2 MEAN CORPUSCULAR HEMOGLOBIN (BEAKER) (test 31.8 pg 25.7-32.2 pplg=716) MEAN CORPUSCULAR HEMOGLOBIN CONC (BEAKER) (test 34.0 GM/DL 32.3-36.5 jytq=159) RED CELL DISTRIBUTION WIDTH (BEAKER) (test 18.4 % 11.6-14.4 ipmw=374) PLATELET COUNT (BEAKER) (test gdqa=290) 64 K/CU MM 150-450 MEAN PLATELET VOLUME (BEAKER) (test tyms=055) 11.5 fL 9.4-12.4 NUCLEATED RED BLOOD CELLS (BEAKER) (test 16 /100 WBC 0-0 wfdm=961) CALCIUM, [id number] 04:39:00 Test Item Value Reference Range Comments CALCIUM IONIZED (BEAKER) (test rmoi=211) 1.20 mmol/L 1.12-1.27 PH, BLOOD (BEAKER) (test eoqo=4435) 7.37 OXYGEN SATURATION, [id number] 04:38:00 Test Item Value Reference Range Comments O2 SATURATION (MEASURED) (BEAKER) (test yrfo=5956) 75.3 % BLOOD GAS, [id number] 04:37:00 Test Item Value Reference Range Comments PH ARTERIAL (BEAKER) (test mwqe=019) 7.39 7.35-7.45 PCO2 ARTERIAL (BEAKER) (test pwku=687) 46 mmHg 35-45 PO2 ARTERIAL (BEAKER) (test ztgp=987) 251 mmHg 80-90 O2 SATURATION ARTERIAL (BEAKER) (test zlbe=689) 99.6 % 96.0-97.0 HCO3 ARTERIAL (BEAKER) (test fshu=877) 27 mmol/L 21-29 BASE EXCESS ARTERIAL (BEAKER) (test menv=212) 1.6 mmol/L -2.0-3.0 PATIENT TEMPERATURE (BEAKER) (test dotm=3215) 35.4 C FIO2 (BEAKER) (test htvp=0443) 40.0 % GLUCOSE-STAT [id number] 04:37:00 Test Item Value Reference Range Comments GLUCOSE RANDOM (BEAKER) (test nolp=392) 154 mg/dL 70-110 GLUCOSE-STAT [id number] 02:52:00 Test Item Value Reference Range Comments GLUCOSE RANDOM (BEAKER) (test pcpb=205) 179 mg/dL 70-110 GLUCOSE-STAT [id number] 01:26:00 Test Item Value Reference Range Comments GLUCOSE RANDOM (BEAKER) (test imfb=719) 195 mg/dL 70-110 [id number] 00:08:00 Test Item Value Reference Range Comments POTASSIUM (BEAKER) (test qhod=673) 4.2 meq/L 3.5-5.1 [id number] 00:08:00 Test Item Value Reference Range Comments GLUCOSE RANDOM (BEAKER) (test vhkz=991) 237 mg/dL 70-105 CBC W/PLT COUNT & AUTO [id number] 22:28:00 Test Item Value Reference Range Comments WHITE BLOOD CELL COUNT (BEAKER) (test ahex=122) 13.2 K/ L 3.5-10.5 RED BLOOD CELL COUNT (BEAKER) (test dazt=933) 2.32 M/ L 4.63-6.08 HEMOGLOBIN (BEAKER) (test lxbt=056) 7.5 GM/DL 13.7-17.5 HEMATOCRIT (BEAKER) (test gbwl=230) 22.6 % 40.1-51.0 MEAN CORPUSCULAR VOLUME (BEAKER) (test ckcf=569) 97.4 fL 79.0-92.2 MEAN CORPUSCULAR HEMOGLOBIN (BEAKER) (test 32.3 pg 25.7-32.2 kvrf=849) MEAN CORPUSCULAR HEMOGLOBIN CONC (BEAKER) (test 33.2 GM/DL 32.3-36.5 khxn=618) RED CELL DISTRIBUTION WIDTH (BEAKER) (test 17.6 % 11.6-14.4 xpps=625) PLATELET COUNT (BEAKER) (test rrpw=663) 74 K/CU MM 150-450 MEAN PLATELET VOLUME (BEAKER) (test trsg=490) 11.3 fL 9.4-12.4 NUCLEATED RED BLOOD CELLS (BEAKER) (test 11 /100 WBC 0-0 oquj=945) RAD, CHEST, 1 VIEW, NON [id number] 21:50:00Reason for exam:->chest tubes/ intubationShould this be performed at the bedside?->YesFINAL REPORT TECHNIQUE: Single view of the chest. COMPARISON: 01/13/2018 at 3: 21 AM FINDINGS: Mild prominent interstitial markings in the lungs are stable. There are no large pleural effusions. No gross pneumothorax.No gross new lung parenchymal changes. Previous transfemoral cannula has been removed. Impella device no longer seen. Remaining Lines and tubes are stable. Signed: Kyle Rome MDReport Verified Date/Time: 01/13/2018 21:50:50 Reading Location: [facility] [id number] Consult Reading Room THROMBOELASTOGRAPH (TEG)2018-01-13 21:45:00 Test Item Value Reference Range Comments TEG ACTIVATED CLOTTING TIME (BEAKER) (test 5.8 minutes 4.0-7.0 ioqg=2495) TEG FIBRINOGEN ACTIVITY (BEAKER) (test 63.1 degrees 61.0-73.0 ktbk=8365) TEG PLT. AGGREGATION (BEAKER) (test mgfg=8528) 51.7 MM 55.0-65.0 TEG FIBRINOLYSIS (BEAKER) (test hkxj=7552) 0.0 % 0.0-5.0 TGH ACTIVATED CLOTTING TIME (BEAKER) (test 5.8 minutes 4.0-7.0 duid=4317) TGH FIBRINOGEN ACTIVITY (BEAKER) (test 64.9 degrees 61.0-73.0 lgee=4565) TGH PLT. AGGREGATION (BEAKER) (test yqsh=2184) 50.0 MM 55.0-65.0 TGH FIBRINOLYSIS (BEAKER) (test quql=5650) 0.0 % 0.0-5.0 BASIC METABOLIC [id number] 21:35:00 Test Item Value Reference Range Comments SODIUM (BEAKER) (test 135 meq/L 136-145 qgoi=033) POTASSIUM (BEAKER) (test 3.4 meq/L 3.5-5.1 tlsx=712) CHLORIDE (BEAKER) (test 103 meq/L 98-107 azqh=207) CO2 (BEAKER) (test 21 meq/L 22-29 meui=939) BLOOD UREA NITROGEN 31 mg/dL 7-21 (BEAKER) (test qsop=025) CREATININE (BEAKER) (test 1.96 mg/dL 0.57-1.25 krdk=592) GLUCOSE RANDOM (BEAKER) 239 mg/dL 70-105 (test eqik=301) CALCIUM (BEAKER) (test 7.9 mg/dL 8.4-10.2 xcri=287) EGFR (BEAKER) (test 42 mL/min/1.73 sq m ESTIMATED GFR IS NOT dbko=0794) ACCURATE CREATININE CLEARANCE IN PREDICTING GLOMERULAR FILTRATION RATE. ESTIMATED GFR IS NOT APPLICABLE FOR DIALYSIS PATIENTS. Specimen slightly [id number] 21:06:00 Test Item Value Reference Range Comments PHOSPHORUS (BEAKER) (test ogia=487) 3.7 mg/dL 2.3-4.7 [id number] 21:06:00 Test Item Value Reference Range Comments MAGNESIUM (BEAKER) (test anwc=616) 2.0 mg/dL 1.6-2.6 LACTIC ACID, ARTERIAL, WHOLE [id number] 21:06:00 Test Item Value Reference Range Comments LACTATE BLOOD ARTERIAL (2) (BEAKER) (test 1.8 mmol/L 0.5-2.2 kgsa=7497) Effective 01/04/2016: Units/Reference Range ChangeNew: 0.5-2.2 mmol/L Previous: 5 -20 mg/dLSpecimen slightly [id number] 21:01:00 Test Item Value Reference Range Comments PARTIAL THROMBOPLASTIN TIME (BEAKER) (test 35.1 seconds 22.5-36.0 kxew=320) [id number] 21:00:00 Test Item Value Reference Range Comments FIBRINOGEN LEVEL (BEAKER) (test idez=720) 253 mg/dl 225-434 PROTHROMBIN TIME/[id number] 20:59:00 Test Item Value Reference Range Comments PROTIME (BEAKER) (test mwqx=523) 16.4 seconds 11.7-14.7 INR (BEAKER) (test kwdg=401) 1.3 <=5.9 RECOMMENDED COUMADIN/WARFARIN INR THERAPY RANGESSTANDARD DOSE: 2.0 - 3.0 Includes: PROPHYLAXIS forvenous thrombosis, systemic embolization; TREATMENT for venous thrombosis and/or pulmonary embolus.HIGH RISK: Target INR is 2.5-3.5 for patients with mechanical heart valves.BLOOD GAS, [id number] 20:47:00 Test Item Value Reference Range Comments PH ARTERIAL (BEAKER) (test mcxu=939) 7.39 7.35-7.45 PCO2 ARTERIAL (BEAKER) (test kpxi=450) 37 mmHg 35-45 PO2 ARTERIAL (BEAKER) (test vgvp=139) 230 mmHg 80-90 O2 SATURATION ARTERIAL (BEAKER) (test gqdf=544) 99.5 % 96.0-97.0 HCO3 ARTERIAL (BEAKER) (test rtha=798) 22 mmol/L 21-29 BASE EXCESS ARTERIAL (BEAKER) (test ccxd=800) -2.6 mmol/L -2.0-3.0 PATIENT TEMPERATURE (BEAKER) (test pngc=4378) 35.6 C FIO2 (BEAKER) (test erdr=9354) 40.0 % GLUCOSE-STAT [id number] 20:47:00 Test Item Value Reference Range Comments GLUCOSE RANDOM (BEAKER) (test cycj=765) 235 mg/dL 70-110 CALCIUM, [id number] 20:47:00 Test Item Value Reference Range Comments CALCIUM IONIZED (BEAKER) (test vveh=786) 0.97 mmol/L 1.12-1.27 PH, BLOOD (BEAKER) (test hhzq=2323) 7.39 HGB/HCT (H&H) - STAT [id number] 20:46:00 Test Item Value Reference Range Comments HEMOGLOBIN (BEAKER) (test xzjf=867) 7.7 g/dL 13.0-16.8 HEMATOCRIT (BEAKER) (test zyst=814) 23.0 % 40.0-50.0 POTASSIUM-STAT [id number] 20:46:00 Test Item Value Reference Range Comments POTASSIUM (BEAKER) (test taui=706) 3.4 meq/L 3.6-5.5 SODIUM NA-STAT [id number] 20:46:00 Test Item Value Reference Range Comments SODIUM (BEAKER) (test rqvk=343) 133 meq/L 135-148 OXYGEN SATURATION, [id number] 20:42:00 Test Item Value Reference Range Comments O2 SATURATION (MEASURED) (BEAKER) (test sjxm=7897) 74.1 % BLOOD GAS, [id number] 18:58:00 Test Item Value Reference Range Comments PH ARTERIAL (BEAKER) (test wrgj=920) 7.53 7.35-7.45 PCO2 ARTERIAL (BEAKER) (test yzmv=508) 24 mmHg 35-45 PO2 ARTERIAL (BEAKER) (test gpya=609) 582 mmHg 80-90 O2 SATURATION ARTERIAL (BEAKER) (test tuim=424) 99.9 % 96.0-97.0 HCO3 ARTERIAL (BEAKER) (test khtl=155) 20 mmol/L 21-29 BASE EXCESS ARTERIAL (BEAKER) (test esxk=124) -2.3 mmol/L -2.0-3.0 PATIENT TEMPERATURE (BEAKER) (test nrvl=0211) 37.0 C FIO2 (BEAKER) (test vppy=8010) 100.0 % SODIUM NA-STAT [id number] 18:58:00 Test Item Value Reference Range Comments SODIUM (BEAKER) (test dpjs=256) 131 meq/L 135-148 POTASSIUM-STAT [id number] 18:58:00 Test Item Value Reference Range Comments POTASSIUM (BEAKER) (test xlsi=028) 3.4 meq/L 3.6-5.5 GLUCOSE-STAT [id number] 18:58:00 Test Item Value Reference Range Comments GLUCOSE RANDOM (BEAKER) (test lxfs=504) 214 mg/dL 70-110 HGB/HCT (H&H) - STAT [id number] 18:58:00 Test Item Value Reference Range Comments HEMOGLOBIN (BEAKER) (test yytp=444) 8.1 g/dL 13.0-16.8 HEMATOCRIT (BEAKER) (test vigh=199) 24.0 % 40.0-50.0 THROMBOELASTOGRAPH (TEG)2018-01-13 18:23:00 Test Item Value Reference Range Comments TEG ACTIVATED CLOTTING TIME (BEAKER) (test 18.1 minutes 4.0-7.0 felr=1309) TEG FIBRINOGEN ACTIVITY (BEAKER) (test 46.7 degrees 61.0-73.0 ocsd=1329) TEG PLT. AGGREGATION (BEAKER) (test togo=2549) 51.7 MM 55.0-65.0 TEG FIBRINOLYSIS (BEAKER) (test tumz=2715) 0.1 % 0.0-5.0 TGH ACTIVATED CLOTTING TIME (BEAKER) (test 8.6 minutes 4.0-7.0 rcyy=2052) TGH FIBRINOGEN ACTIVITY (BEAKER) (test 61.3 degrees 61.0-73.0 kpqs=6555) TGH PLT. AGGREGATION (BEAKER) (test nwrq=3559) 50.2 MM 55.0-65.0 TGH FIBRINOLYSIS (BEAKER) (test fpou=6293) 0.0 % 0.0-5.0 BLOOD GAS, [id number] 18:11:00 Test Item Value Reference Range Comments PH ARTERIAL (BEAKER) (test cluf=713) 7.56 7.35-7.45 PCO2 ARTERIAL (BEAKER) (test aggq=863) 27 mmHg 35-45 PO2 ARTERIAL (BEAKER) (test lgas=273) 523 mmHg 80-90 O2 SATURATION ARTERIAL (BEAKER) (test dnpg=927) 99.9 % 96.0-97.0 HCO3 ARTERIAL (BEAKER) (test tddn=947) 24 mmol/L 21-29 BASE EXCESS ARTERIAL (BEAKER) (test zpic=103) 1.6 mmol/L -2.0-3.0 PATIENT TEMPERATURE (BEAKER) (test bdpp=4103) 37.0 C FIO2 (BEAKER) (test jcat=0212) 97.0 % SODIUM NA-STAT [id number] 18:11:00 Test Item Value Reference Range Comments SODIUM (BEAKER) (test eoyd=881) 132 meq/L 135-148 GLUCOSE-STAT [id number] 18:11:00 Test Item Value Reference Range Comments GLUCOSE RANDOM (BEAKER) (test iiwi=924) 200 mg/dL 70-110 HGB/HCT (H&H) - STAT [id number] 18:11:00 Test Item Value Reference Range Comments HEMOGLOBIN (BEAKER) (test rhls=139) 8.2 g/dL 13.0-16.8 HEMATOCRIT (BEAKER) (test ccts=968) 24.0 % 40.0-50.0 POTASSIUM-STAT [id number] 18:07:00 Test Item Value Reference Range Comments POTASSIUM (BEAKER) (test tfvv=567) 3.5 meq/L 3.6-5.5 [id number] 16:37:00 Test Item Value Reference Range Comments PHOSPHORUS (BEAKER) (test rehg=248) 2.5 mg/dL 2.3-4.7 [id number] 16:37:00 Test Item Value Reference Range Comments MAGNESIUM (BEAKER) (test gknh=433) 2.1 mg/dL 1.6-2.6 [id number] 16:29:00 Test Item Value Reference Range Comments PROTIME (BEAKER) (test bsry=287) 15.1 seconds 11.7-14.7 INR (BEAKER) (test rxee=090) 1.2 <=5.9 PARTIAL THROMBOPLASTIN TIME (BEAKER) (test 65.5 seconds 22.5-36.0 refn=089) RECOMMENDED COUMADIN/WARFARIN INR THERAPY RANGESSTANDARD DOSE: 2.0 - 3.0 Includes: PROPHYLAXIS forvenous thrombosis, systemic embolization; TREATMENT for venous thrombosis and/or pulmonary embolus.HIGH RISK: Target INR is 2.5-3.5 for patients with mechanical heart valves.BLOOD GAS, [id number] 16:16:00 Test Item Value Reference Range Comments PH ARTERIAL (BEAKER) (test nyrf=862) 7.64 7.35-7.45 PCO2 ARTERIAL (BEAKER) (test rnpo=156) 24 mmHg 35-45 PO2 ARTERIAL (BEAKER) (test akcs=705) 289 mmHg 80-90 O2 SATURATION ARTERIAL (BEAKER) (test dytv=371) 99.8 % 96.0-97.0 HCO3 ARTERIAL (BEAKER) (test pjra=220) 25 mmol/L 21-29 BASE EXCESS ARTERIAL (BEAKER) (test ofxa=527) 4.4 mmol/L -2.0-3.0 PATIENT TEMPERATURE (BEAKER) (test qlhl=4701) 36.7 C FIO2 (BEAKER) (test zgnl=1903) 40.0 % CALCIUM, [id number] 16:14:00 Test Item Value Reference Range Comments CALCIUM IONIZED (BEAKER) (test wkly=325) 1.09 mmol/L 1.12-1.27 PH, BLOOD (BEAKER) (test zwkh=4416) 7.64 GLUCOSE-STAT [id number] 16:12:00 Test Item Value Reference Range Comments GLUCOSE RANDOM (BEAKER) (test ohbo=532) 182 mg/dL 70-110 CALCIUM, [id number] 12:53:00 Test Item Value Reference Range Comments CALCIUM IONIZED (BEAKER) (test pums=615) 1.12 mmol/L 1.12-1.27 PH, BLOOD (BEAKER) (test dcre=9486) 7.51 BLOOD GAS, [id number] 12:53:00 Test Item Value Reference Range Comments PH ARTERIAL (BEAKER) (test crwu=597) 7.51 7.35-7.45 PCO2 ARTERIAL (BEAKER) (test wvli=332) 33 mmHg 35-45 PO2 ARTERIAL (BEAKER) (test rkyc=538) 350 mmHg 80-90 O2 SATURATION ARTERIAL (BEAKER) (test csfm=142) 99.8 % 96.0-97.0 HCO3 ARTERIAL (BEAKER) (test dima=239) 26 mmol/L 21-29 BASE EXCESS ARTERIAL (BEAKER) (test ptaw=897) 2.5 mmol/L -2.0-3.0 PATIENT TEMPERATURE (BEAKER) (test dldi=6473) 37.2 C FIO2 (BEAKER) (test sbdc=3000) 40.0 % HGB/HCT (H&H) - STAT [id number] 12:53:00 Test Item Value Reference Range Comments HEMOGLOBIN (BEAKER) (test szmc=408) 8.3 g/dL 13.0-16.8 HEMATOCRIT (BEAKER) (test qrhv=790) 24.0 % 40.0-50.0 GLUCOSE-STAT [id number] 12:53:00 Test Item Value Reference Range Comments GLUCOSE RANDOM (BEAKER) (test tbuk=100) 185 mg/dL 70-110 POTASSIUM-STAT [id number] 12:52:00 Test Item Value Reference Range Comments POTASSIUM (BEAKER) (test stku=723) 3.7 meq/L 3.6-5.5 CBC W/PLT COUNT & AUTO [id number] 11:04:00 Test Item Value Reference Range Comments WHITE BLOOD CELL COUNT (BEAKER) (test efqy=165) 11.1 K/ L 3.5-10.5 RED BLOOD CELL COUNT (BEAKER) (test xtgp=210) 2.49 M/ L 4.63-6.08 HEMOGLOBIN (BEAKER) (test mlai=616) 8.1 GM/DL 13.7-17.5 HEMATOCRIT (BEAKER) (test ktbb=215) 24.2 % 40.1-51.0 MEAN CORPUSCULAR VOLUME (BEAKER) (test kwsj=441) 97.2 fL 79.0-92.2 MEAN CORPUSCULAR HEMOGLOBIN (BEAKER) (test 32.5 pg 25.7-32.2 evsy=961) MEAN CORPUSCULAR HEMOGLOBIN CONC (BEAKER) (test 33.5 GM/DL 32.3-36.5 gdcq=651) RED CELL DISTRIBUTION WIDTH (BEAKER) (test 17.8 % 11.6-14.4 vfxx=263) PLATELET COUNT (BEAKER) (test irji=077) 89 K/CU MM 150-450 MEAN PLATELET VOLUME (BEAKER) (test zlgg=001) 11.4 fL 9.4-12.4 NUCLEATED RED BLOOD CELLS (BEAKER) (test 8 /100 WBC 0-0 soiq=678) POTASSIUM-STAT [id number] 10:49:00 Test Item Value Reference Range Comments POTASSIUM (BEAKER) (test beij=508) 3.8 meq/L 3.6-5.5 HEPARIN ASSAY - [id number] 09:55:00 Test Item Value Reference Range Comments UNFRACTIONATED HEPARIN-ANTI 10A (BEAKER) (test 0.14 u/ml 0.30-0.70 fazb=3504) Recommendations for Monitoring Unfractionated Heparin Therapeutic Range: 0.3- 0.7 u/mL with continuous IV [id number] 09:54:00 Test Item Value Reference Range Comments PARTIAL THROMBOPLASTIN TIME (BEAKER) (test 57.6 seconds 22.5-36.0 xrul=981) BLOOD GAS, [id number] 09:33:00 Test Item Value Reference Range Comments PH ARTERIAL (BEAKER) (test yxth=156) 7.50 7.35-7.45 PCO2 ARTERIAL (BEAKER) (test wbwc=180) 33 mmHg 35-45 PO2 ARTERIAL (BEAKER) (test jdet=399) 336 mmHg 80-90 O2 SATURATION ARTERIAL (BEAKER) (test ywte=012) 99.8 % 96.0-97.0 HCO3 ARTERIAL (BEAKER) (test qebe=872) 25 mmol/L 21-29 BASE EXCESS ARTERIAL (BEAKER) (test gcgk=853) 2.1 mmol/L -2.0-3.0 PATIENT TEMPERATURE (BEAKER) (test pxsq=0738) 37.2 C FIO2 (BEAKER) (test qhwr=2898) 40.0 % GLUCOSE-STAT [id number] 09:33:00 Test Item Value Reference Range Comments GLUCOSE RANDOM (BEAKER) (test vdsu=147) 192 mg/dL 70-110 GLUCOSE-STAT [id number] 09:33:00 Test Item Value Reference Range Comments GLUCOSE RANDOM (BEAKER) (test dkrt=086) 192 mg/dL 70-110 CALCIUM, [id number] 09:32:00 Test Item Value Reference Range Comments CALCIUM IONIZED (BEAKER) (test njbk=086) 1.15 mmol/L 1.12-1.27 PH, BLOOD (BEAKER) (test otrq=7721) 7.51 BLOOD GAS, [id number] 07:23:00 Test Item Value Reference Range Comments PH ARTERIAL (BEAKER) (test ywex=533) 7.53 7.35-7.45 PCO2 ARTERIAL (BEAKER) (test hmsg=703) 30 mmHg 35-45 PO2 ARTERIAL (BEAKER) (test juaw=050) 336 mmHg 80-90 O2 SATURATION ARTERIAL (BEAKER) (test ibnd=639) 99.8 % 96.0-97.0 HCO3 ARTERIAL (BEAKER) (test owlh=491) 24 mmol/L 21-29 BASE EXCESS ARTERIAL (BEAKER) (test quzf=639) 1.8 mmol/L -2.0-3.0 PATIENT TEMPERATURE (BEAKER) (test smrv=1388) 36.9 C FIO2 (BEAKER) (test cqie=6297) 40.0 % THROMBOELASTOGRAPH (TEG)2018-01-13 06:54:00 Test Item Value Reference Range Comments TEG ACTIVATED CLOTTING TIME (BEAKER) (test 28.1 minutes 4.0-7.0 ousb=7518) TEG FIBRINOGEN ACTIVITY (BEAKER) (test 28.6 degrees 61.0-73.0 rodn=4881) TEG PLT. AGGREGATION (BEAKER) (test iqxf=7398) 45.8 MM 55.0-65.0 TEG FIBRINOLYSIS (BEAKER) (test xuqe=4320) 0.0 % 0.0-5.0 TGH ACTIVATED CLOTTING TIME (BEAKER) (test 9.9 minutes 4.0-7.0 szpf=5823) TGH FIBRINOGEN ACTIVITY (BEAKER) (test 61.4 degrees 61.0-73.0 ksfm=1372) TGH PLT. AGGREGATION (BEAKER) (test rhkh=6634) 50.5 MM 55.0-65.0 TGH FIBRINOLYSIS (BEAKER) (test cqvx=8307) 0.0 % 0.0-5.0 BLOOD GAS, [id number] 06:13:00 Test Item Value Reference Range Comments PH ARTERIAL (BEAKER) (test vddx=853) 7.53 7.35-7.45 PCO2 ARTERIAL (BEAKER) (test phpl=399) 28 mmHg 35-45 PO2 ARTERIAL (BEAKER) (test vfpt=238) 337 mmHg 80-90 O2 SATURATION ARTERIAL (BEAKER) (test kqzi=817) 99.8 % 96.0-97.0 HCO3 ARTERIAL (BEAKER) (test oydd=691) 23 mmol/L 21-29 BASE EXCESS ARTERIAL (BEAKER) (test pycr=995) 0.7 mmol/L -2.0-3.0 PATIENT TEMPERATURE (BEAKER) (test swhq=3052) 36.8 C FIO2 (BEAKER) (test twkh=4524) 40.0 % BLOOD GAS, [id number] 05:13:00 Test Item Value Reference Range Comments PH ARTERIAL (BEAKER) (test iopq=090) 7.46 7.35-7.45 PCO2 ARTERIAL (BEAKER) (test wxen=748) 37 mmHg 35-45 PO2 ARTERIAL (BEAKER) (test gloa=741) 522 mmHg 80-90 O2 SATURATION ARTERIAL (BEAKER) (test vqlj=313) 99.9 % 96.0-97.0 HCO3 ARTERIAL (BEAKER) (test suwp=212) 26 mmol/L 21-29 BASE EXCESS ARTERIAL (BEAKER) (test gihy=741) 1.6 mmol/L -2.0-3.0 PATIENT TEMPERATURE (BEAKER) (test dysf=6260) 36.8 C FIO2 (BEAKER) (test cwmt=4600) 100.0 % [id number] 04:41:00 Test Item Value Reference Range Comments PARTIAL THROMBOPLASTIN TIME (BEAKER) (test 61.3 seconds 22.5-36.0 pvor=545) RAD, CHEST, 1 VIEW, NON [id number] 04:38:00Reason for exam:->impella/ECMO /intubationShould this be performed at the bedside?->YesFINAL REPORT CLINICAL INDICATION: Support lines. Comparison: 01/12/2018 The cardiomediastinal contours are stable. Central pulmonary vascular prominence and bilateral parenchymalopacities are previous. There is no pneumothorax. Support lines are stable. Signed: Kellen Parra MDReport Verified Date/Time: 04:38:41 Reading Location: [address] Reading Room HEPATIC FUNCTION [id number] 04:25:00 Test Item Value Reference Range Comments TOTAL PROTEIN (BEAKER) (test wtvp=556) 5.0 gm/dL 6.0-8.3 ALBUMIN (BEAKER) (test ckno=1832) 2.7 g/dL 3.5-5.0 BILIRUBIN TOTAL (BEAKER) (test dacy=958) 4.6 mg/dL 0.2-1.2 BILIRUBIN DIRECT (BEAKER) (test lxrg=386) 3.6 mg/dL 0.1-0.5 ALKALINE PHOSPHATASE (BEAKER) (test gtqv=652) 43 U/L 40-150 AST (SGOT) (BEAKER) (test rsft=476) 2670 U/L 5-34 ALT (SGPT) (BEAKER) (test aaoh=240) 2232 U/L 6-55 Specimen slightly [id number] 04:19:00 Test Item Value Reference Range Comments PHOSPHORUS (BEAKER) (test vnlw=897) 4.1 mg/dL 2.3-4.7 [id number] 04:19:00 Test Item Value Reference Range Comments MAGNESIUM (BEAKER) (test crgo=240) 1.9 mg/dL 1.6-2.6 [id number] 04:19:00 Test Item Value Reference Range Comments CALCIUM (BEAKER) (test yrlt=067) 8.6 mg/dL 8.4-10.2 BASIC METABOLIC [id number] 04:19:00 Test Item Value Reference Range Comments SODIUM (BEAKER) (test 136 meq/L 136-145 voym=255) POTASSIUM (BEAKER) (test 4.2 meq/L 3.5-5.1 xcqt=906) CHLORIDE (BEAKER) (test 102 meq/L 98-107 crgg=604) CO2 (BEAKER) (test 25 meq/L 22-29 tvap=457) BLOOD UREA NITROGEN 24 mg/dL 7-21 (BEAKER) (test aukr=992) CREATININE (BEAKER) (test 1.80 mg/dL 0.57-1.25 tlgf=831) GLUCOSE RANDOM (BEAKER) 188 mg/dL 70-105 (test zkpb=476) CALCIUM (BEAKER) (test 8.6 mg/dL 8.4-10.2 dmpy=575) EGFR (BEAKER) (test 47 mL/min/1.73 sq m ESTIMATED GFR IS NOT bimx=9974) ACCURATE CREATININE CLEARANCE IN PREDICTING GLOMERULAR FILTRATION RATE. ESTIMATED GFR IS NOT APPLICABLE FOR DIALYSIS PATIENTS. Specimen slightly ictericLACTATE DEHYDROGENASE (LDH)2018-01-13 04:19:00 Test Item Value Reference Range Comments LACTATE DEHYDROGENASE (BEAKER) (test qdxf=588) 1658 U/L 125-220 [id number] 04:16:00 Test Item Value Reference Range Comments FIBRINOGEN LEVEL (BEAKER) (test urha=379) 299 mg/dl 225-434 LACTIC ACID, ARTERIAL, WHOLE [id number] 04:16:00 Test Item Value Reference Range Comments LACTATE BLOOD ARTERIAL (2) (BEAKER) (test 0.8 mmol/L 0.5-2.2 ydwz=7593) Effective 01/04/2016: Units/Reference Range ChangeNew: 0.5-2.2 mmol/L Previous: 5 -20 mg/dLSpecimen slightly ictericPROTHROMBIN [id number] 04:15:00 Test Item Value Reference Range Comments PROTIME (BEAKER) (test epef=127) 15.8 seconds 11.7-14.7 INR (BEAKER) (test ompc=958) 1.3 <=5.9 RECOMMENDED COUMADIN/WARFARIN INR THERAPY RANGESSTANDARD DOSE: 2.0 - 3.0 Includes: PROPHYLAXIS forvenous thrombosis, systemic embolization; TREATMENT for venous thrombosis and/or pulmonary embolus.HIGH RISK: Target INR is 2.5-3.5 for patients with mechanical heart valves.CALCIUM, [id number] 04:04:00 Test Item Value Reference Range Comments CALCIUM IONIZED (BEAKER) (test ljyd=036) 1.15 mmol/L 1.12-1.27 PH, BLOOD (BEAKER) (test stcw=2360) 7.33 BLOOD GAS, [id number] 04:03:00 Test Item Value Reference Range Comments PH ARTERIAL (BEAKER) (test oznt=979) 7.33 7.35-7.45 PCO2 ARTERIAL (BEAKER) (test wbvi=014) 55 mmHg 35-45 PO2 ARTERIAL (BEAKER) (test ydfw=811) 324 mmHg 80-90 O2 SATURATION ARTERIAL (BEAKER) (test exro=422) 99.7 % 96.0-97.0 HCO3 ARTERIAL (BEAKER) (test sixp=742) 28 mmol/L 21-29 BASE EXCESS ARTERIAL (BEAKER) (test pxgy=753) 1.8 mmol/L -2.0-3.0 PATIENT TEMPERATURE (BEAKER) (test qqzd=3319) 36.8 C FIO2 (BEAKER) (test eyom=8824) 40.0 % PLATELET [id number] 03:58:00 Test Item Value Reference Range Comments PLATELET COUNT (BEAKER) (test teap=415) 89 K/CU MM 150-450 OXYGEN SATURATION, [id number] 03:57:00 Test Item Value Reference Range Comments O2 SATURATION (MEASURED) (BEAKER) (test pmde=1411) 79.4 % BLOOD GAS, [id number] 01:19:00 Test Item Value Reference Range Comments PH ARTERIAL (BEAKER) (test rgit=978) 7.47 7.35-7.45 PCO2 ARTERIAL (BEAKER) (test zpmf=003) 36 mmHg 35-45 PO2 ARTERIAL (BEAKER) (test bkfv=200) 328 mmHg 80-90 O2 SATURATION ARTERIAL (BEAKER) (test kciw=747) 99.8 % 96.0-97.0 HCO3 ARTERIAL (BEAKER) (test epky=519) 26 mmol/L 21-29 BASE EXCESS ARTERIAL (BEAKER) (test kruq=604) 1.8 mmol/L -2.0-3.0 PATIENT TEMPERATURE (BEAKER) (test xjaj=6340) 36.6 C FIO2 (BEAKER) (test pvra=7210) 40.0 % GLUCOSE-STAT [id number] 01:19:00 Test Item Value Reference Range Comments GLUCOSE RANDOM (BEAKER) (test bdya=526) 177 mg/dL 70-110 POTASSIUM-STAT [id number] 01:18:00 Test Item Value Reference Range Comments POTASSIUM (BEAKER) (test gvxq=110) 4.0 meq/L 3.6-5.5 CALCIUM, [id number] 01:17:00 Test Item Value Reference Range Comments CALCIUM IONIZED (BEAKER) (test ulrc=774) 1.13 mmol/L 1.12-1.27 PH, BLOOD (BEAKER) (test lylp=0220) 7.46 THROMBOELASTOGRAPH (TEG)2018-01-12 20:40:00 Test Item Value Reference Range Comments TEG ACTIVATED CLOTTING TIME (BEAKER) (test 12.3 minutes 4.0-7.0 dkib=6943) TEG FIBRINOGEN ACTIVITY (BEAKER) (test 56.6 degrees 61.0-73.0 noom=3722) TEG PLT. AGGREGATION (BEAKER) (test hxgo=0984) 56.6 MM 55.0-65.0 TEG FIBRINOLYSIS (BEAKER) (test ilxf=9943) 6.6 % 0.0-5.0 TGH ACTIVATED CLOTTING TIME (BEAKER) (test 6.4 minutes 4.0-7.0 wtqo=5041) TGH FIBRINOGEN ACTIVITY (BEAKER) (test 71.3 degrees 61.0-73.0 thqz=5146) TGH PLT. AGGREGATION (BEAKER) (test pebd=0664) 60.5 MM 55.0-65.0 TGH FIBRINOLYSIS (BEAKER) (test vioq=6748) 0.0 % 0.0-5.0 [id number] 20:36:00 Test Item Value Reference Range Comments POTASSIUM (BEAKER) (test czhu=504) 4.2 meq/L 3.5-5.1 [id number] 20:36:00 Test Item Value Reference Range Comments MAGNESIUM (BEAKER) (test luzm=761) 1.8 mg/dL 1.6-2.6 [id number] 20:36:00 Test Item Value Reference Range Comments PHOSPHORUS (BEAKER) (test fzbv=473) 3.5 mg/dL 2.3-4.7 LACTIC ACID, ARTERIAL, WHOLE [id number] 20:33:00 Test Item Value Reference Range Comments LACTATE BLOOD ARTERIAL (2) (BEAKER) (test 0.8 mmol/L 0.5-2.2 ljgd=9622) Effective 01/04/2016: Units/Reference Range ChangeNew: 0.5-2.2 mmol/L Previous: 5 -20 mg/dLSpecimen slightly ictericBLOOD GAS, [id number] 20:20:00 Test Item Value Reference Range Comments PH ARTERIAL (BEAKER) (test vmsb=997) 7.45 7.35-7.45 PCO2 ARTERIAL (BEAKER) (test zbig=851) 39 mmHg 35-45 PO2 ARTERIAL (BEAKER) (test kwll=290) 289 mmHg 80-90 O2 SATURATION ARTERIAL (BEAKER) (test fkud=209) 99.7 % 96.0-97.0 HCO3 ARTERIAL (BEAKER) (test mfor=802) 27 mmol/L 21-29 BASE EXCESS ARTERIAL (BEAKER) (test fwkm=354) 2.5 mmol/L -2.0-3.0 PATIENT TEMPERATURE (BEAKER) (test azvu=7236) 36.8 C FIO2 (BEAKER) (test fhlt=4257) 40.0 % GLUCOSE-STAT [id number] 20:20:00 Test Item Value Reference Range Comments GLUCOSE RANDOM (BEAKER) (test xeyp=532) 180 mg/dL 70-110 [id number] 18:34:00 Test Item Value Reference Range Comments GLUCOSE RANDOM (BEAKER) (test molm=791) 218 mg/dL 70-105 BLOOD GAS, [id number] 18:18:00 Test Item Value Reference Range Comments PH ARTERIAL (BEAKER) (test otka=573) 7.44 7.35-7.45 PCO2 ARTERIAL (BEAKER) (test sfnu=620) 40 mmHg 35-45 PO2 ARTERIAL (BEAKER) (test wggi=915) 321 mmHg 80-90 O2 SATURATION ARTERIAL (BEAKER) (test wyrh=611) 99.7 % 96.0-97.0 HCO3 ARTERIAL (BEAKER) (test sjzu=134) 27 mmol/L 21-29 BASE EXCESS ARTERIAL (BEAKER) (test nfxj=599) 2.4 mmol/L -2.0-3.0 PATIENT TEMPERATURE (BEAKER) (test dchf=9026) 36.9 C FIO2 (BEAKER) (test wkmi=3087) 40.0 % [id number] 17:12:00 Test Item Value Reference Range Comments PARTIAL THROMBOPLASTIN TIME (BEAKER) (test 54.1 seconds 22.5-36.0 hgua=794) [id number] 17:12:00 Test Item Value Reference Range Comments FIBRINOGEN LEVEL (BEAKER) (test xcac=491) 285 mg/dl 225-434 PROTHROMBIN [id number] 17:10:00 Test Item Value Reference Range Comments PROTIME (BEAKER) (test sifq=242) 19.8 seconds 11.7-14.7 INR (BEAKER) (test vpor=728) 1.7 <=5.9 RECOMMENDED COUMADIN/WARFARIN INR THERAPY RANGESSTANDARD DOSE: 2.0 - 3.0 Includes: PROPHYLAXIS forvenous thrombosis, systemic embolization; TREATMENT for venous thrombosis and/or pulmonary embolus.HIGH RISK: Target INR is 2.5-3.5 for patients with mechanical heart valves.LACTIC ACID, ARTERIAL, WHOLE [id number] 17:03:00 Test Item Value Reference Range Comments LACTATE BLOOD ARTERIAL (2) (BEAKER) (test 0.8 mmol/L 0.5-2.2 vgzi=3872) Effective 01/04/2016: Units/Reference Range ChangeNew: 0.5-2.2 mmol/L Previous: 5 -20 mg/dLSpecimen slightly [id number] 17:01:00 Test Item Value Reference Range Comments POTASSIUM (BEAKER) (test dcqe=337) 4.5 meq/L 3.5-5.1 [id number] 17:01:00 Test Item Value Reference Range Comments GLUCOSE RANDOM (BEAKER) (test btwu=572) 239 mg/dL 70-105 PLATELET [id number] 16:46:00 Test Item Value Reference Range Comments PLATELET COUNT (BEAKER) (test vqqe=979) 86 K/CU MM 150-450 BLOOD GAS, [id number] 16:36:00 Test Item Value Reference Range Comments PH ARTERIAL (BEAKER) (test mosc=336) 7.46 7.35-7.45 PCO2 ARTERIAL (BEAKER) (test xxfw=883) 39 mmHg 35-45 PO2 ARTERIAL (BEAKER) (test jxtn=735) 256 mmHg 80-90 O2 SATURATION ARTERIAL (BEAKER) (test rozd=619) 99.6 % 96.0-97.0 HCO3 ARTERIAL (BEAKER) (test obus=784) 27 mmol/L 21-29 BASE EXCESS ARTERIAL (BEAKER) (test bocd=309) 3.2 mmol/L -2.0-3.0 PATIENT TEMPERATURE (BEAKER) (test qphx=1223) 37.0 C CALCIUM, [id number] 16:36:00 Test Item Value Reference Range Comments CALCIUM IONIZED (BEAKER) (test jqwz=514) 1.08 mmol/L 1.12-1.27 PH, BLOOD (BEAKER) (test fmgm=2796) 7.46 [id number] 15:00:00 Test Item Value Reference Range Comments POTASSIUM (BEAKER) (test mscq=449) 4.7 meq/L 3.5-5.1 [id number] 15:00:00 Test Item Value Reference Range Comments GLUCOSE RANDOM (BEAKER) (test wqkn=783) 210 mg/dL 70-105 BLOOD GAS, [id number] 14:42:00 Test Item Value Reference Range Comments PH ARTERIAL (BEAKER) (test zlvo=596) 7.45 7.35-7.45 PCO2 ARTERIAL (BEAKER) (test rlqg=742) 41 mmHg 35-45 PO2 ARTERIAL (BEAKER) (test qwks=122) 308 mmHg 80-90 O2 SATURATION ARTERIAL (BEAKER) (test joqz=596) 99.7 % 96.0-97.0 HCO3 ARTERIAL (BEAKER) (test dqxx=869) 28 mmol/L 21-29 BASE EXCESS ARTERIAL (BEAKER) (test bbib=263) 3.7 mmol/L -2.0-3.0 PATIENT TEMPERATURE (BEAKER) (test zpni=7672) 36.8 C FIO2 (BEAKER) (test eoeh=2507) 40.0 % RAD, CHEST, 1 VIEW, NON [id number] 14:41:00Reason for exam:->chest tube insertionFINAL REPORT CHEST ONE VIEW HISTORY: Status post chest tube placement COMPARISON: 01/12/2018 FINDINGS: Single portable AP examination of the chest was performed. Interval placement of of a left-sided chest tube. Interval resolution of the previously visualized left pleural effusion layering out. No pneumothorax is identified. Right-sided right-sided chest tubes remain in place,without evidence of a pneumothorax. Impella device is present, terminating in the region of the left ventricle. An endotracheal tube is present, with its tip about 3.5 m proximal to the elisabet. Right jugular pulmonary arterial catheter tip is in the right pulmonary artery region. The cardiac shadow is normal in size. Sternotomy wires are present. A prosthetic cardiac valve is present. Signed: Kay Wilkerson MDReport Verified Date/Time: 14:41:22 Reading Location: [facility] C0T Transitional Reading Room THROMBOELASTOGRAPH (TEG)2018-01-12 12:43:00 Test Item Value Reference Range Comments TEG ACTIVATED CLOTTING TIME (BEAKER) (test 30.7 minutes 4.0-7.0 blse=1709) TEG FIBRINOGEN ACTIVITY (BEAKER) (test 23.3 degrees 61.0-73.0 xnww=2994) TEG PLT. AGGREGATION (BEAKER) (test typz=8394) 54.6 MM 55.0-65.0 TEG FIBRINOLYSIS (BEAKER) (test jnpt=8400) 0.0 % 0.0-5.0 TGH ACTIVATED CLOTTING TIME (BEAKER) (test 11.6 minutes 4.0-7.0 qmty=6878) TGH FIBRINOGEN ACTIVITY (BEAKER) (test 58.6 degrees 61.0-73.0 mpnn=2690) TGH PLT. AGGREGATION (BEAKER) (test qfxm=8725) 52.2 MM 55.0-65.0 TGH FIBRINOLYSIS (BEAKER) (test dovm=9040) 0.0 % 0.0-5.0 [id number] 11:23:00 Test Item Value Reference Range Comments D-DIMER QUANTITATIVE (BEAKER) (test emnz=975) 1.67 MG/L FEU <0.50 Intended Use: The D-Dimer Assay can be used to aid in the diagnosis of Deep Vein Thrombosis (DVT) and Pulmonary Embolism Disease (PED).In patients with low pre-test probability, various studies concerning STA Liatest D-dimer test have reported that with a cutoff value of 0.50 MG/L FEU, the Negative Predictive Value (NPV) regarding the exclusion of thrombosis is within 95-100% range.[id number] 10:10:00 Test Item Value Reference Range Comments MAGNESIUM (BEAKER) (test 2.1 mg/dL 1.6-2.6 Specimen slightly hemolyzed vfwd=599) [id number] 10:10:00 Test Item Value Reference Range Comments PHOSPHORUS (BEAKER) (test 4.2 mg/dL 2.3-4.7 Specimen slightly hemolyzed cuai=680) [id number] 10:10:00 Test Item Value Reference Range Comments POTASSIUM (BEAKER) (test 5.0 meq/L 3.5-5.1 Specimen slightly hemolyzed pfbm=411) [id number] 10:10:00 Test Item Value Reference Range Comments GLUCOSE RANDOM (BEAKER) (test ppjg=940) 204 mg/dL 70-105 [id number] 10:07:00 Test Item Value Reference Range Comments FIBRINOGEN LEVEL (BEAKER) (test bvgo=237) 251 mg/dl 225-434 ANTITHROMBIN [id number] 10:04:00 Test Item Value Reference Range Comments ANTITHROMBIN III ACTIVITY (BEAKER) (test beqj=522) 46.0 % 80.0-120.0 [id number] 09:58:00 Test Item Value Reference Range Comments PARTIAL THROMBOPLASTIN TIME (BEAKER) (test 59.8 seconds 22.5-36.0 bokq=262) PROTHROMBIN TIME/[id number] 09:57:00 Test Item Value Reference Range Comments PROTIME (BEAKER) (test ewai=682) 19.3 seconds 11.7-14.7 INR (BEAKER) (test mwpn=377) 1.6 <=5.9 RECOMMENDED COUMADIN/WARFARIN INR THERAPY RANGESSTANDARD DOSE: 2.0 - 3.0 Includes: PROPHYLAXIS forvenous thrombosis, systemic embolization; TREATMENT for venous thrombosis and/or pulmonary embolus.HIGH RISK: Target INR is 2.5-3.5 for patients with mechanical heart valves.PLATELET [id number] 09:49:00 Test Item Value Reference Range Comments PLATELET COUNT (BEAKER) (test jked=965) 94 K/CU MM 150-450 BLOOD GAS, [id number] 09:47:00 Test Item Value Reference Range Comments PH ARTERIAL (BEAKER) (test maxr=682) 7.47 7.35-7.45 PCO2 ARTERIAL (BEAKER) (test swzt=827) 38 mmHg 35-45 PO2 ARTERIAL (BEAKER) (test hksk=184) 259 mmHg 80-90 O2 SATURATION ARTERIAL (BEAKER) (test iexx=235) 99.6 % 96.0-97.0 HCO3 ARTERIAL (BEAKER) (test urcn=844) 27 mmol/L 21-29 BASE EXCESS ARTERIAL (BEAKER) (test zjzl=861) 3.2 mmol/L -2.0-3.0 PATIENT TEMPERATURE (BEAKER) (test fqzk=3238) 36.9 C FIO2 (BEAKER) (test wixo=0492) 40.0 % CALCIUM, [id number] 09:46:00 Test Item Value Reference Range Comments CALCIUM IONIZED (BEAKER) (test ymbc=749) 1.12 mmol/L 1.12-1.27 PH, BLOOD (BEAKER) (test ghmd=9592) 7.47 HEPARIN ASSAY - [id number] 08:21:00 Test Item Value Reference Range Comments UNFRACTIONATED HEPARIN-ANTI 10A (BEAKER) (test < u/ml 0.30-0.70 tghk=6041) Recommendations for Monitoring Unfractionated Heparin Therapeutic Range: 0.3- 0.7 u/mL with continuous IV infusionLACTATE DEHYDROGENASE (LDH)2018-01-12 07:40: 00 Test Item Value Reference Range Comments LACTATE DEHYDROGENASE (BEAKER) (test pqgd=647) 3247 U/L 125-220 [id number] 07:38:00 Test Item Value Reference Range Comments MAGNESIUM (BEAKER) (test wikr=438) 2.3 mg/dL 1.6-2.6 [id number] 07:38:00 Test Item Value Reference Range Comments GLUCOSE RANDOM (BEAKER) (test byqo=873) 217 mg/dL 70-105 LACTIC ACID, ARTERIAL, WHOLE [id number] 07:27:00 Test Item Value Reference Range Comments LACTATE BLOOD ARTERIAL (2) (BEAKER) (test 1.4 mmol/L 0.5-2.2 inci=5950) Effective 01/04/2016: Units/Reference Range ChangeNew: 0.5-2.2 mmol/L Previous: 5 -20 mg/dLSpecimen slightly ictericGLUCOSE-STAT [id number] 06:55:00 Test Item Value Reference Range Comments GLUCOSE RANDOM (BEAKER) (test xkce=740) 212 mg/dL 70-110 BLOOD GAS, [id number] 06:55:00 Test Item Value Reference Range Comments PH ARTERIAL (BEAKER) (test dfdr=454) 7.44 7.35-7.45 PCO2 ARTERIAL (BEAKER) (test kfmr=315) 40 mmHg 35-45 PO2 ARTERIAL (BEAKER) (test vhrl=227) 259 mmHg 80-90 O2 SATURATION ARTERIAL (BEAKER) (test vlay=587) 99.6 % 96.0-97.0 HCO3 ARTERIAL (BEAKER) (test nltd=515) 26 mmol/L 21-29 BASE EXCESS ARTERIAL (BEAKER) (test spya=161) 2.1 mmol/L -2.0-3.0 PATIENT TEMPERATURE (BEAKER) (test rbyw=8677) 36.7 C FIO2 (BEAKER) (test bjpw=5266) 40.0 % POTASSIUM-STAT [id number] 06:52:00 Test Item Value Reference Range Comments POTASSIUM (BEAKER) (test ebab=346) 4.8 meq/L 3.6-5.5 BLOOD GAS, [id number] 06:43:00 Test Item Value Reference Range Comments PH ARTERIAL (BEAKER) (test jzvt=173) 7.33 7.35-7.45 PCO2 ARTERIAL (BEAKER) (test joxq=702) 55 mmHg 35-45 PO2 ARTERIAL (BEAKER) (test sceq=448) 475 mmHg 80-90 O2 SATURATION ARTERIAL (BEAKER) (test geax=093) 99.8 % 96.0-97.0 HCO3 ARTERIAL (BEAKER) (test coow=074) 28 mmol/L 21-29 BASE EXCESS ARTERIAL (BEAKER) (test flxs=843) 0.8 mmol/L -2.0-3.0 PATIENT TEMPERATURE (BEAKER) (test nnzd=8764) 36.7 C FIO2 (BEAKER) (test cmno=0531) 100.0 % RAD, CHEST, 1 VIEW, NON [id number] 06:14:00Reason for exam:->impella/ECMO /intubationShould this be performed at the bedside?->YesFINAL REPORT Chest one view. Clinical history: impella/ECMO/intubation Comparison: Chest radiograph 01/11/2018, 6:12 PM Technique: A single frontal view of the chest was obtained. Findings: Cardiomediastinal contours are unchanged. Support devices are in stable position. There is a layering left pleural effusion, not significantly changed. There is mild pulmonary interstitial edema, not significantly changed. There is no pneumothorax. Signed: Raz Taylor Verified Date/Time: 01/12/2018 06:14:29 Reading Location: [address] Reading Room LACTATE DEHYDROGENASE (LDH)01-12 05:03:00 Test Item Value Reference Range Comments LACTATE DEHYDROGENASE (BEAKER) (test ftcg=108) 3014 U/L 125-220 HEPATIC FUNCTION [id number] 05:03:00 Test Item Value Reference Range Comments TOTAL PROTEIN (BEAKER) (test hosj=787) 4.8 gm/dL 6.0-8.3 ALBUMIN (BEAKER) (test jsdm=2913) 2.7 g/dL 3.5-5.0 BILIRUBIN TOTAL (BEAKER) (test lwpa=899) 4.3 mg/dL 0.2-1.2 BILIRUBIN DIRECT (BEAKER) (test nzgp=984) 3.2 mg/dL 0.1-0.5 ALKALINE PHOSPHATASE (BEAKER) (test bavl=544) 43 U/L 40-150 AST (SGOT) (BEAKER) (test rnuu=232) 2716 U/L 5-34 ALT (SGPT) (BEAKER) (test sivw=650) 1544 U/L 6-55 Specimen slightly [id number] 05:01:00 Test Item Value Reference Range Comments PHOSPHORUS (BEAKER) (test tnhw=762) 5.0 mg/dL 2.3-4.7 [id number] 05:01:00 Test Item Value Reference Range Comments MAGNESIUM (BEAKER) (test bucz=936) 2.1 mg/dL 1.6-2.6 [id number] 05:01:00 Test Item Value Reference Range Comments CALCIUM (BEAKER) (test zpsf=063) 8.5 mg/dL 8.4-10.2 BASIC METABOLIC [id number] 05:01:00 Test Item Value Reference Range Comments SODIUM (BEAKER) (test 137 meq/L 136-145 mdar=590) POTASSIUM (BEAKER) (test 5.1 meq/L 3.5-5.1 jpib=807) CHLORIDE (BEAKER) (test 103 meq/L 98-107 jucr=544) CO2 (BEAKER) (test 24 meq/L 22-29 jhfd=804) BLOOD UREA NITROGEN 25 mg/dL 7-21 (BEAKER) (test rkil=433) CREATININE (BEAKER) (test 2.54 mg/dL 0.57-1.25 nxlt=438) GLUCOSE RANDOM (BEAKER) 208 mg/dL 70-105 (test kxyp=474) CALCIUM (BEAKER) (test 8.5 mg/dL 8.4-10.2 mdhp=897) EGFR (BEAKER) (test 32 mL/min/1.73 sq m ESTIMATED GFR IS NOT kzyp=0359) ACCURATE CREATININE CLEARANCE IN PREDICTING GLOMERULAR FILTRATION RATE. ESTIMATED GFR IS NOT APPLICABLE FOR DIALYSIS PATIENTS. Specimen slightly ictericLACTIC ACID, ARTERIAL, WHOLE [id number] 04:42:00 Test Item Value Reference Range Comments LACTATE BLOOD ARTERIAL (2) (BEAKER) (test 1.5 mmol/L 0.5-2.2 umak=5000) Effective 01/04/2016: Units/Reference Range ChangeNew: 0.5-2.2 mmol/L Previous: 5 -20 mg/dLSpecimen slightly [id number] 04:38:00 Test Item Value Reference Range Comments FIBRINOGEN LEVEL (BEAKER) (test tags=751) 252 mg/dl 225-434 [id number] 04:38:00 Test Item Value Reference Range Comments PARTIAL THROMBOPLASTIN TIME (BEAKER) (test 54.6 seconds 22.5-36.0 wynr=063) CBC W/PLT COUNT & AUTO [id number] 04:37:00 Test Item Value Reference Range Comments WHITE BLOOD CELL COUNT (BEAKER) (test yizx=860) 10.9 K/ L 3.5-10.5 RED BLOOD CELL COUNT (BEAKER) (test aisn=035) 2.74 M/ L 4.63-6.08 HEMOGLOBIN (BEAKER) (test fplq=312) 8.7 GM/DL 13.7-17.5 HEMATOCRIT (BEAKER) (test mssi=443) 25.8 % 40.1-51.0 MEAN CORPUSCULAR VOLUME (BEAKER) (test ljuh=771) 94.2 fL 79.0-92.2 MEAN CORPUSCULAR HEMOGLOBIN (BEAKER) (test 31.8 pg 25.7-32.2 ywea=110) MEAN CORPUSCULAR HEMOGLOBIN CONC (BEAKER) (test 33.7 GM/DL 32.3-36.5 yqrv=997) RED CELL DISTRIBUTION WIDTH (BEAKER) (test 18.6 % 11.6-14.4 mqso=941) PLATELET COUNT (BEAKER) (test wahp=908) 110 K/CU MM 150-450 MEAN PLATELET VOLUME (BEAKER) (test mzfo=691) 11.8 fL 9.4-12.4 NUCLEATED RED BLOOD CELLS (BEAKER) (test 3 /100 WBC 0-0 pbzf=118) NEUTROPHILS RELATIVE PERCENT (BEAKER) (test 91 % twkz=956) LYMPHOCYTES RELATIVE PERCENT (BEAKER) (test 3 % jabw=928) MONOCYTES RELATIVE PERCENT (BEAKER) (test 5 % xmmg=590) EOSINOPHILS RELATIVE PERCENT (BEAKER) (test 0 % breb=405) BASOPHILS RELATIVE PERCENT (BEAKER) (test 0 % wmuy=436) NEUTROPHILS ABSOLUTE COUNT (BEAKER) (test 9.98 K/ L 1.78-5.38 vmfb=095) LYMPHOCYTES ABSOLUTE COUNT (BEAKER) (test 0.31 K/ L 1.32-3.57 ggqo=610) MONOCYTES ABSOLUTE COUNT (BEAKER) (test 0.55 K/ L 0.30-0.82 sxke=239) EOSINOPHILS ABSOLUTE COUNT (BEAKER) (test 0.00 K/ L 0.04-0.54 qgru=017) BASOPHILS ABSOLUTE COUNT (BEAKER) (test 0.02 K/ L 0.01-0.08 nmam=586) IMMATURE GRANULOCYTES-RELATIVE PERCENT (BEAKER) 1 % 0-1 (test rjdg=5596) PROTHROMBIN [id number] 04:37:00 Test Item Value Reference Range Comments PROTIME (BEAKER) (test nbyr=285) 19.9 seconds 11.7-14.7 INR (BEAKER) (test fruy=189) 1.7 <=5.9 RECOMMENDED COUMADIN/WARFARIN INR THERAPY RANGESSTANDARD DOSE: 2.0 - 3.0 Includes: PROPHYLAXIS forvenous thrombosis, systemic embolization; TREATMENT for venous thrombosis and/or pulmonary embolus.HIGH RISK: Target INR is 2.5-3.5 for patients with mechanical heart valves.CALCIUM, [id number] 04:31:00 Test Item Value Reference Range Comments CALCIUM IONIZED (BEAKER) (test wudd=978) 1.12 mmol/L 1.12-1.27 PH, BLOOD (BEAKER) (test nuyi=3853) 7.42 BLOOD GAS, [id number] 04:30:00 Test Item Value Reference Range Comments PH ARTERIAL (BEAKER) (test dqzl=384) 7.42 7.35-7.45 PCO2 ARTERIAL (BEAKER) (test gyod=171) 41 mmHg 35-45 PO2 ARTERIAL (BEAKER) (test niuv=514) 226 mmHg 80-90 O2 SATURATION ARTERIAL (BEAKER) (test jbzm=100) 99.5 % 96.0-97.0 HCO3 ARTERIAL (BEAKER) (test ldtj=887) 26 mmol/L 21-29 BASE EXCESS ARTERIAL (BEAKER) (test spuy=702) 1.6 mmol/L -2.0-3.0 PATIENT TEMPERATURE (BEAKER) (test pldn=1858) 36.8 C FIO2 (BEAKER) (test gpzd=3553) 40.0 % PLATELET [id number] 04:23:00 Test Item Value Reference Range Comments PLATELET COUNT (BEAKER) (test ptmx=867) 110 K/CU MM 150-450 OXYGEN SATURATION, [id number] 04:14:00 Test Item Value Reference Range Comments O2 SATURATION (MEASURED) (BEAKER) (test bgjt=2305) 79.7 % [id number] 02:54:00 Test Item Value Reference Range Comments PARTIAL THROMBOPLASTIN TIME (BEAKER) (test 134.3 seconds 22.5-36.0 lint=154) [id number] 02:25:00 Test Item Value Reference Range Comments PARTIAL THROMBOPLASTIN TIME (BEAKER) (test 94.0 seconds 22.5-36.0 eukc=625) BLOOD GAS, [id number] 01:56:00 Test Item Value Reference Range Comments PH ARTERIAL (BEAKER) (test cfpu=038) 7.61 7.35-7.45 PCO2 ARTERIAL (BEAKER) (test xatt=775) 25 mmHg 35-45 PO2 ARTERIAL (BEAKER) (test yldi=398) 209 mmHg 80-90 O2 SATURATION ARTERIAL (BEAKER) (test beft=814) 99.6 % 96.0-97.0 HCO3 ARTERIAL (BEAKER) (test pvlj=852) 25 mmol/L 21-29 BASE EXCESS ARTERIAL (BEAKER) (test wlaj=407) 3.4 mmol/L -2.0-3.0 PATIENT TEMPERATURE (BEAKER) (test phes=6386) 36.5 C FIO2 (BEAKER) (test voap=7904) 40.0 % GLUCOSE-STAT [id number] 01:53:00 Test Item Value Reference Range Comments GLUCOSE RANDOM (BEAKER) (test hdqp=668) 201 mg/dL 70-110 POTASSIUM-STAT [id number] 01:52:00 Test Item Value Reference Range Comments POTASSIUM (BEAKER) (test pwez=635) 4.9 meq/L 3.6-5.5 LACTIC ACID, ARTERIAL, WHOLE [id number] 01:18:00 Test Item Value Reference Range Comments LACTATE BLOOD ARTERIAL (2) (BEAKER) (test 2.0 mmol/L 0.5-2.2 mnrq=3209) Effective 01/04/2016: Units/Reference Range ChangeNew: 0.5-2.2 mmol/L Previous: 5 -20 mg/dLSpecimen slightly [id number] 01:18:00 Test Item Value Reference Range Comments POTASSIUM (BEAKER) (test wdke=499) 5.1 meq/L 3.5-5.1 [id number] 01:18:00 Test Item Value Reference Range Comments GLUCOSE RANDOM (BEAKER) (test pyyl=088) 194 mg/dL 70-105 PROTHROMBIN TIME/[id number] 01:15:00 Test Item Value Reference Range Comments PROTIME (BEAKER) (test qhfs=368) 21.2 seconds 11.7-14.7 INR (BEAKER) (test inxd=607) 1.8 <=5.9 RECOMMENDED COUMADIN/WARFARIN INR THERAPY RANGESSTANDARD DOSE: 2.0 - 3.0 Includes: PROPHYLAXIS forvenous thrombosis, systemic embolization; TREATMENT for venous thrombosis and/or pulmonary embolus.HIGH RISK: Target INR is 2.5-3.5 for patients with mechanical heart valves.[id number] 01:15:00 Test Item Value Reference Range Comments FIBRINOGEN LEVEL (BEAKER) (test ohei=220) 233 mg/dl 225-434 PLATELET [id number] 01:01:00 Test Item Value Reference Range Comments PLATELET COUNT (BEAKER) (test zntn=238) 84 K/CU MM 150-450 BLOOD GAS, [id number] 01:00:00 Test Item Value Reference Range Comments PH ARTERIAL (BEAKER) (test dhoo=532) 7.43 7.35-7.45 PCO2 ARTERIAL (BEAKER) (test lkdi=966) 40 mmHg 35-45 PO2 ARTERIAL (BEAKER) (test ksqr=452) 285 mmHg 80-90 O2 SATURATION ARTERIAL (BEAKER) (test vmme=474) 99.7 % 96.0-97.0 HCO3 ARTERIAL (BEAKER) (test qyij=241) 26 mmol/L 21-29 BASE EXCESS ARTERIAL (BEAKER) (test rjdz=722) 1.7 mmol/L -2.0-3.0 PATIENT TEMPERATURE (BEAKER) (test mmxh=3727) 36.7 C FIO2 (BEAKER) (test ymso=5666) 40.0 % CALCIUM, [id number] 01:00:00 Test Item Value Reference Range Comments CALCIUM IONIZED (BEAKER) (test ovlq=631) 1.08 mmol/L 1.12-1.27 PH, BLOOD (BEAKER) (test xdbh=4376) 7.43 THROMBOELASTOGRAPH (TEG)2018-01-12 00:01:00 Test Item Value Reference Range Comments TEG ACTIVATED CLOTTING TIME (BEAKER) minutes 4.0-7.0 No clot detected (test aieo=2372) TGH ACTIVATED CLOTTING TIME (BEAKER) 13.3 minutes 4.0-7.0 (test odbr=0500) [facility] FIBRINOGEN ACTIVITY (BEAKER) (test 44.7 degrees 61.0-73.0 hsih=7856) [facility] PLT. AGGREGATION (BEAKER) (test 46.3 MM 55.0-65.0 qlfz=6651) [facility] FIBRINOLYSIS (BEAKER) (test 0.0 % 0.0-5.0 iflq=2769) GLUCOSE-STAT [id number] 23:53:00 Test Item Value Reference Range Comments GLUCOSE RANDOM (BEAKER) (test gtin=197) 182 mg/dL 70-110 BLOOD GAS, [id number] 23:52:00 Test Item Value Reference Range Comments PH ARTERIAL (BEAKER) (test ssdg=646) 7.52 7.35-7.45 PCO2 ARTERIAL (BEAKER) (test jlov=748) 31 mm Hg 35-45 PO2 ARTERIAL (BEAKER) (test msni=830) 280 mm Hg 80-90 O2 SATURATION ARTERIAL (BEAKER) (test htru=869) 99.7 % 96.0-97.0 HCO3 ARTERIAL (BEAKER) (test wuqp=993) 25 mmol/L 21-29 BASE EXCESS ARTERIAL (BEAKER) (test nylo=687) 2.3 mmol/L -2.0-3.0 PATIENT TEMPERATURE (BEAKER) (test rsns=4182) 36.7 FIO2 (BEAKER) (test nlfz=8421) 40 [id number] 23:05:00 Test Item Value Reference Range Comments PARTIAL THROMBOPLASTIN TIME (BEAKER) (test > seconds 22.5-36.0 ettj=247) BLOOD GAS, [id number] 23:01:00 Test Item Value Reference Range Comments PH ARTERIAL (BEAKER) (test nlkg=148) 7.42 7.35-7.45 PCO2 ARTERIAL (BEAKER) (test doye=848) 44 mmHg 35-45 PO2 ARTERIAL (BEAKER) (test sdhi=551) 541 mmHg 80-90 O2 SATURATION ARTERIAL (BEAKER) (test kmam=761) 99.9 % 96.0-97.0 HCO3 ARTERIAL (BEAKER) (test rvlt=433) 28 mmol/L 21-29 BASE EXCESS ARTERIAL (BEAKER) (test awtm=044) 2.6 mmol/L -2.0-3.0 PATIENT TEMPERATURE (BEAKER) (test uovg=8607) 37.0 C FIO2 (BEAKER) (test tjoc=8426) 100.0 % [id number] 22:46:00 Test Item Value Reference Range Comments FIBRINOGEN LEVEL (BEAKER) (test bhfh=574) 223 mg/dl 225-434 PROTHROMBIN TIME/[id number] 22:45:00 Test Item Value Reference Range Comments PROTIME (BEAKER) (test lcix=849) 23.0 seconds 11.7-14.7 INR (BEAKER) (test zoxs=159) 2.0 <=5.9 RECOMMENDED COUMADIN/WARFARIN INR THERAPY RANGESSTANDARD DOSE: 2.0 - 3.0 Includes: PROPHYLAXIS forvenous thrombosis, systemic embolization; TREATMENT for venous thrombosis and/or pulmonary embolus.HIGH RISK: Target INR is 2.5-3.5 for patients with mechanical heart valves.BLOOD GAS, [id number] 22:22:00 Test Item Value Reference Range Comments PH ARTERIAL (BEAKER) (test xukc=741) 7.67 7.35-7.45 PCO2 ARTERIAL (BEAKER) (test ssey=796) 20 mmHg 35-45 PO2 ARTERIAL (BEAKER) (test wiip=036) 261 mmHg 80-90 O2 SATURATION ARTERIAL (BEAKER) (test nlrb=553) 99.8 % 96.0-97.0 HCO3 ARTERIAL (BEAKER) (test kpzm=299) 23 mmol/L 21-29 BASE EXCESS ARTERIAL (BEAKER) (test skql=544) 2.6 mmol/L -2.0-3.0 PATIENT TEMPERATURE (BEAKER) (test fhhn=0153) 35.8 C FIO2 (BEAKER) (test nbyh=2192) 40.0 % CALCIUM, [id number] 22:21:00 Test Item Value Reference Range Comments CALCIUM IONIZED (BEAKER) (test ftln=167) 1.05 mmol/L 1.12-1.27 PH, BLOOD (BEAKER) (test vpvv=8013) 7.67 PLATELET [id number] 22:21:00 Test Item Value Reference Range Comments PLATELET COUNT (BEAKER) (test uwcx=981) 71 K/CU MM 150-450 GLUCOSE-STAT [id number] 22:20:00 Test Item Value Reference Range Comments GLUCOSE RANDOM (BEAKER) (test jcyt=828) 189 mg/dL 70-110 POTASSIUM-STAT [id number] 22:19:00 Test Item Value Reference Range Comments POTASSIUM (BEAKER) (test msue=919) 5.1 meq/L 3.6-5.5 THROMBOELASTOGRAPH (TEG)2018-01-11 21:07:00 Test Item Value Reference Range Comments TEG ACTIVATED CLOTTING TIME (BEAKER) minutes 4.0-7.0 No clot detected. (test ekrz=3321) TEG FIBRINOGEN ACTIVITY (BEAKER) (test degrees 61.0-73.0 No clot detected. faaw=7251) TEG PLT. AGGREGATION (BEAKER) (test MM 55.0-65.0 No clot detected. vlab=8562) TEG FIBRINOLYSIS (BEAKER) (test % 0.0-5.0 No clot detected. pung=1161) TGH ACTIVATED CLOTTING TIME (BEAKER) 15.3 minutes 4.0-7.0 (test mjfw=5416) TGH FIBRINOGEN ACTIVITY (BEAKER) (test 42.8 degrees 61.0-73.0 hknk=6327) TGH PLT. AGGREGATION (BEAKER) (test 43.9 MM 55.0-65.0 yfzf=2873) TGH FIBRINOLYSIS (BEAKER) (test 0.0 % 0.0-5.0 hkfs=6432) LACTATE DEHYDROGENASE (LDH)2018-01-11 20:57:00 Test Item Value Reference Range Comments LACTATE DEHYDROGENASE (BEAKER) (test vpgn=359) 2133 U/L 125-220 [id number] 20:55:00 Test Item Value Reference Range Comments POTASSIUM (BEAKER) (test vbml=057) 5.4 meq/L 3.5-5.1 [id number] 20:55:00 Test Item Value Reference Range Comments MAGNESIUM (BEAKER) (test jumn=321) 1.6 mg/dL 1.6-2.6 [id number] 20:55:00 Test Item Value Reference Range Comments PHOSPHORUS (BEAKER) (test rlud=828) 2.9 mg/dL 2.3-4.7 GLUCOSE-STAT [id number] 20:31:00 Test Item Value Reference Range Comments GLUCOSE RANDOM (BEAKER) (test upog=256) 166 mg/dL 70-110 POTASSIUM-STAT [id number] 20:30:00 Test Item Value Reference Range Comments POTASSIUM (BEAKER) (test gaiy=509) 5.2 meq/L 3.6-5.5 BLOOD GAS, [id number] 20:30:00 Test Item Value Reference Range Comments PH ARTERIAL (BEAKER) (test fwni=816) 7.59 7.35-7.45 PCO2 ARTERIAL (BEAKER) (test acjw=626) 24 mmHg 35-45 PO2 ARTERIAL (BEAKER) (test fkfl=828) 151 mmHg 80-90 O2 SATURATION ARTERIAL (BEAKER) (test dgme=280) 99.3 % 96.0-97.0 HCO3 ARTERIAL (BEAKER) (test rygz=458) 23 mmol/L 21-29 BASE EXCESS ARTERIAL (BEAKER) (test iokv=351) 1.6 mmol/L -2.0-3.0 PATIENT TEMPERATURE (BEAKER) (test qkmf=0899) 36.5 C FIO2 (BEAKER) (test ujgu=3065) 40.0 % OXYGEN SATURATION, [id number] 18:46:00 Test Item Value Reference Range Comments O2 SATURATION (MEASURED) (BEAKER) (test gyde=6380) 81.5 % RAD, CHEST, 1 VIEW, NON [id number] 18:27:00Reason for exam:->impella/ ECMO placementShould this be performed at the bedside?->YesFINAL REPORT INDICATION: impella/ECMO placement COMPARISON: January 11, 2018 at 4:11 AM TECHNIQUE: Chest radiograph, single view, portable technique. FINDINGS / IMPRESSION: There is a new inferior vena cava cannula terminating in the right atrium and a new intraventricular assist device from the abdominal aorta. Transesophageal echocardiogram probe has been removed. Other support lines and tubes are unchanged and appear in satisfactory position. Mild interstitial pulmonary edema and layering left pleural effusion again demonstrated. No pneumothorax. Signed: Pedro Xie MDReport Verified Date/ Time: 01/11/2018 18:27:33 Reading Location: [facility] B1 [id number] Ortho Consult Reading Room 06: 27 [id number] 18:11:00 Test Item Value Reference Range Comments PARTIAL THROMBOPLASTIN TIME (BEAKER) (test > seconds 22.5-36.0 zvji=836) LACTATE DEHYDROGENASE (LDH)2018-01-11 18:09:00 Test Item Value Reference Range Comments LACTATE DEHYDROGENASE (BEAKER) 1590 U/L 125-220 Specimen slightly hemolyzed (test pkgh=144) BASIC METABOLIC [id number] 18:08:00 Test Item Value Reference Range Comments SODIUM (BEAKER) (test 139 meq/L 136-145 gino=720) POTASSIUM (BEAKER) (test 6.5 meq/L 3.5-5.1 Specimen slightly unmx=127) hemolyzed CHLORIDE (BEAKER) (test 106 meq/L 98-107 szvw=243) CO2 (BEAKER) (test 15 meq/L 22-29 iyji=415) BLOOD UREA NITROGEN 27 mg/dL 7-21 (BEAKER) (test yaql=264) CREATININE (BEAKER) (test 3.65 mg/dL 0.57-1.25 Specimen slightly gidz=937) hemolyzed GLUCOSE RANDOM (BEAKER) 162 mg/dL 70-105 (test rlwp=882) CALCIUM (BEAKER) (test 8.8 mg/dL 8.4-10.2 qmaq=465) EGFR (BEAKER) (test 21 mL/min/1.73 sq m ESTIMATED GFR IS NOT zkvy=3193) ACCURATE CREATININE CLEARANCE IN PREDICTING GLOMERULAR FILTRATION RATE. ESTIMATED GFR IS NOT APPLICABLE FOR DIALYSIS PATIENTS. [id number] 17:54:00 Test Item Value Reference Range Comments MAGNESIUM (BEAKER) (test 1.8 mg/dL 1.6-2.6 Specimen slightly hemolyzed iweu=394) [id number] 17:54:00 Test Item Value Reference Range Comments PHOSPHORUS (BEAKER) (test 4.6 mg/dL 2.3-4.7 Specimen slightly hemolyzed omal=814) LACTIC ACID, ARTERIAL, WHOLE [id number] 17:53:00 Test Item Value Reference Range Comments LACTATE BLOOD ARTERIAL (2) 10.8 mmol/L 0.5-2.2 Specimen slightly hemolyzed (BEAKER) (test rbqp=4353) Effective 01/04/2016: Units/Reference Range ChangeNew: 0.5-2.2 mmol/L Previous: 5 -20 mg/[id number] 17:46:00 Test Item Value Reference Range Comments D-DIMER QUANTITATIVE (BEAKER) (test zlsa=912) 0.82 MG/L FEU <0.50 Intended Use: The D-Dimer Assay can be used to aid in the diagnosis of Deep Vein Thrombosis (DVT) and Pulmonary Embolism Disease (PED).In patients with low pre-test probability, various studies concerning STA Liatest D-dimer test have reported that with a cutoff value of 0.50 MG/L FEU, the Negative Predictive Value (NPV) regarding the exclusion of thrombosis is within 95-100% range.[id number] 17:46:00 Test Item Value Reference Range Comments FIBRINOGEN LEVEL (BEAKER) (test hipl=554) 201 mg/dl 225-434 PROTHROMBIN TIME/[id number] 17:45:00 Test Item Value Reference Range Comments PROTIME (BEAKER) (test lvnl=864) 24.4 seconds 11.7-14.7 INR (BEAKER) (test vnik=378) 2.2 <=5.9 RECOMMENDED COUMADIN/WARFARIN INR THERAPY RANGESSTANDARD DOSE: 2.0 - 3.0 Includes: PROPHYLAXIS forvenous thrombosis, systemic embolization; TREATMENT for venous thrombosis and/or pulmonary embolus.HIGH RISK: Target INR is 2.5-3.5 for patients with mechanical heart valves.BLOOD GAS, [id number] 17:44:00 Test Item Value Reference Range Comments PH ARTERIAL (BEAKER) (test qfec=449) 7.52 7.35-7.45 PCO2 ARTERIAL (BEAKER) (test khox=063) 21 mmHg 35-45 PO2 ARTERIAL (BEAKER) (test pamo=469) 231 mmHg 80-90 O2 SATURATION ARTERIAL (BEAKER) (test jtbs=665) 99.6 % 96.0-97.0 HCO3 ARTERIAL (BEAKER) (test bzwv=753) 17 mmol/L 21-29 BASE EXCESS ARTERIAL (BEAKER) (test xxks=208) -4.9 mmol/L -2.0-3.0 PATIENT TEMPERATURE (BEAKER) (test domb=5900) 36.1 C FIO2 (BEAKER) (test atwt=5875) 40.0 % SODIUM NA-STAT [id number] 17:44:00 Test Item Value Reference Range Comments SODIUM (BEAKER) (test ewpz=011) 134 meq/L 135-148 POTASSIUM-STAT [id number] 17:44:00 Test Item Value Reference Range Comments POTASSIUM (BEAKER) (test aiph=623) 6.2 meq/L 3.6-5.5 GLUCOSE-STAT [id number] 17:44:00 Test Item Value Reference Range Comments GLUCOSE RANDOM (BEAKER) (test wcvq=092) 147 mg/dL 70-110 HGB/HCT (H&H) - STAT [id number] 17:44:00 Test Item Value Reference Range Comments HEMOGLOBIN (BEAKER) (test tzyk=422) 9.9 g/dL 13.0-16.8 HEMATOCRIT (BEAKER) (test upsx=707) 29.0 % 40.0-50.0 CALCIUM, [id number] 17:41:00 Test Item Value Reference Range Comments CALCIUM IONIZED (BEAKER) (test ymwy=112) 1.03 mmol/L 1.12-1.27 PH, BLOOD (BEAKER) (test dfel=8059) 7.52 OXYGEN SATURATION, [id number] 17:39:00 Test Item Value Reference Range Comments O2 SATURATION (MEASURED) (BEAKER) (test wdfb=3459) 84.5 % CBC W/PLT COUNT & AUTO [id number] 17:37:00 Test Item Value Reference Range Comments WHITE BLOOD CELL COUNT (BEAKER) (test cggj=435) 9.3 K/ L 3.5-10.5 RED BLOOD CELL COUNT (BEAKER) (test jspl=074) 2.91 M/ L 4.63-6.08 HEMOGLOBIN (BEAKER) (test aair=112) 9.2 GM/DL 13.7-17.5 HEMATOCRIT (BEAKER) (test tbzx=423) 27.9 % 40.1-51.0 MEAN CORPUSCULAR VOLUME (BEAKER) (test njiq=541) 95.9 fL 79.0-92.2 MEAN CORPUSCULAR HEMOGLOBIN (BEAKER) (test 31.6 pg 25.7-32.2 vbhf=791) MEAN CORPUSCULAR HEMOGLOBIN CONC (BEAKER) (test 33.0 GM/DL 32.3-36.5 rpcq=363) RED CELL DISTRIBUTION WIDTH (BEAKER) (test 18.9 % 11.6-14.4 utle=786) PLATELET COUNT (BEAKER) (test pehl=709) 88 K/CU MM 150-450 MEAN PLATELET VOLUME (BEAKER) (test jvsx=274) 11.5 fL 9.4-12.4 NUCLEATED RED BLOOD CELLS (BEAKER) (test 1 /100 WBC 0-0 spmk=762) NEUTROPHILS RELATIVE PERCENT (BEAKER) (test 91 % rhew=338) LYMPHOCYTES RELATIVE PERCENT (BEAKER) (test 3 % tesa=867) MONOCYTES RELATIVE PERCENT (BEAKER) (test 6 % nbxr=700) EOSINOPHILS RELATIVE PERCENT (BEAKER) (test 0 % ggya=554) BASOPHILS RELATIVE PERCENT (BEAKER) (test 0 % yulo=241) NEUTROPHILS ABSOLUTE COUNT (BEAKER) (test 8.47 K/ L 1.78-5.38 iitf=568) LYMPHOCYTES ABSOLUTE COUNT (BEAKER) (test 0.23 K/ L 1.32-3.57 cbxx=694) MONOCYTES ABSOLUTE COUNT (BEAKER) (test ehrj=400) 0.53 K/ L 0.30-0.82 EOSINOPHILS ABSOLUTE COUNT (BEAKER) (test 0.00 K/ L 0.04-0.54 twvd=313) BASOPHILS ABSOLUTE COUNT (BEAKER) (test qvhf=482) 0.01 K/ L 0.01-0.08 IMMATURE GRANULOCYTES-RELATIVE PERCENT (BEAKER) 0 % 0-1 (test krgv=8574) [id number] 16:35:00 Test Item Value Reference Range Comments ACTIVATED CLOTTING TIME 230 sec TESTED AT [facility] [address] (BEAKER) (test otqy=175) [facility] [address] [id number] 16:35:00 Test Item Value Reference Range Comments ACTIVATED CLOTTING TIME 191 sec TESTED AT [facility] [address] (BEAKER) (test kjrb=294) [place] [id number] BLOOD GAS, [id number] 16:20:00 Test Item Value Reference Range Comments PH ARTERIAL (BEAKER) (test emwy=560) 7.37 7.35-7.45 PCO2 ARTERIAL (BEAKER) (test dhkv=442) 29 mm Hg 35-45 PO2 ARTERIAL (BEAKER) (test jvvx=787) 590 mm Hg 80-90 O2 SATURATION ARTERIAL (BEAKER) (test wvpk=656) 99.9 % 96.0-97.0 HCO3 ARTERIAL (BEAKER) (test mpcn=971) 16 mmol/L 21-29 BASE EXCESS ARTERIAL (BEAKER) (test xyca=899) -7.3 mmol/L -2.0-3.0 PATIENT TEMPERATURE (BEAKER) (test kivj=0274) 37.0 FIO2 (BEAKER) (test jpcy=6793) 100 BLOOD GAS, [id number] 16:19:00 Test Item Value Reference Range Comments PH ARTERIAL (BEAKER) (test dngr=712) 7.37 7.35-7.45 PCO2 ARTERIAL (BEAKER) (test yxsp=559) 27 mmHg 35-45 PO2 ARTERIAL (BEAKER) (test eceu=312) 426 mmHg 80-90 O2 SATURATION ARTERIAL (BEAKER) (test uzuy=018) 99.8 % 96.0-97.0 HCO3 ARTERIAL (BEAKER) (test vdub=794) 15 mmol/L 21-29 BASE EXCESS ARTERIAL (BEAKER) (test horl=406) -9.1 mmol/L -2.0-3.0 PATIENT TEMPERATURE (BEAKER) (test jopu=6955) 37.0 C FIO2 (BEAKER) (test mupa=4265) 100.0 % Sample drawn from ECMO circuitLACTIC ACID, ARTERIAL, WHOLE [id number] 14:07 :00 Test Item Value Reference Range Comments LACTATE BLOOD ARTERIAL (2) 13.1 mmol/L 0.5-2.2 Specimen slightly hemolyzed (BEAKER) (test qudr=4370) Effective 01/04/2016: Units/Reference Range ChangeNew: 0.5-2.2 mmol/L Previous: 5 -20 mg/dLPROTHROMBIN [id number] 14:01:00 Test Item Value Reference Range Comments PROTIME (BEAKER) (test jrrj=726) 20.9 seconds 11.7-14.7 INR (BEAKER) (test zwdp=219) 1.8 <=5.9 RECOMMENDED COUMADIN/WARFARIN INR THERAPY RANGESSTANDARD DOSE: 2.0 - 3.0 Includes: PROPHYLAXIS forvenous thrombosis, systemic embolization; TREATMENT for venous thrombosis and/or pulmonary embolus.HIGH RISK: Target INR is 2.5-3.5 for patients with mechanical heart valves.[id number] 14:01:00 Test Item Value Reference Range Comments FIBRINOGEN LEVEL (BEAKER) (test drkh=805) 227 mg/dl 225-434 PLATELET [id number] 13:54:00 Test Item Value Reference Range Comments PLATELET COUNT (BEAKER) (test iiom=411) 115 K/CU MM 150-450 BLOOD GAS, [id number] 13:47:00 Test Item Value Reference Range Comments PH ARTERIAL (BEAKER) (test zssi=890) 7.26 7.35-7.45 PCO2 ARTERIAL (BEAKER) (test ywjx=462) 39 mmHg 35-45 PO2 ARTERIAL (BEAKER) (test vajl=960) 180 mmHg 80-90 O2 SATURATION ARTERIAL (BEAKER) (test vnea=307) 99.0 % 96.0-97.0 HCO3 ARTERIAL (BEAKER) (test peza=187) 17 mmol/L 21-29 BASE EXCESS ARTERIAL (BEAKER) (test mvho=427) -9.0 mmol/L -2.0-3.0 PATIENT TEMPERATURE (BEAKER) (test riey=6106) 37.1 C FIO2 (BEAKER) (test szeb=4985) 40.0 % GLUCOSE-STAT [id number] 13:47:00 Test Item Value Reference Range Comments GLUCOSE RANDOM (BEAKER) (test wkcl=927) 134 mg/dL 70-110 [id number] 12:33:00 Test Item Value Reference Range Comments POTASSIUM (BEAKER) (test advs=381) 5.6 meq/L 3.5-5.1 PRN - repeat glucose levels every 1 hour or as specified by insulin titration orders until glucose level is less than 450 mg/[id number] 12:33:00 Test Item Value Reference Range Comments GLUCOSE RANDOM (BEAKER) (test lbjt=337) 43 mg/dL 70-105 PRN - repeat glucose levels every 1 hour or as specified by insulin titration orders until glucose level is less than 450 mg/dLBASIC METABOLIC [id number] 11:05:00 Test Item Value Reference Range Comments SODIUM (BEAKER) (test 144 meq/L 136-145 wabn=125) POTASSIUM (BEAKER) (test 5.9 meq/L 3.5-5.1 gipz=704) CHLORIDE (BEAKER) (test 107 meq/L 98-107 avei=029) CO2 (BEAKER) (test 19 meq/L 22-29 jpav=571) BLOOD UREA NITROGEN 26 mg/dL 7-21 (BEAKER) (test lsgx=510) CREATININE (BEAKER) (test 3.68 mg/dL 0.57-1.25 hdre=321) GLUCOSE RANDOM (BEAKER) 34 mg/dL 70-105 (test xdgt=820) CALCIUM (BEAKER) (test 9.5 mg/dL 8.4-10.2 jfxk=249) EGFR (BEAKER) (test 21 mL/min/1.73 sq m ESTIMATED GFR IS NOT qxre=2395) ACCURATE CREATININE CLEARANCE IN PREDICTING GLOMERULAR FILTRATION RATE. ESTIMATED GFR IS NOT APPLICABLE FOR DIALYSIS PATIENTS. PRN - repeat glucose levels every 1 hour or as specified by insulin titration orders until glucose level is less than 450 mg/dLPRN - repeat potassium levels every 1 hour until glucose level is less than 450 mg/[id number] 11:05: 00 Test Item Value Reference Range Comments GLUCOSE RANDOM (BEAKER) (test huwa=971) 34 mg/dL 70-105 [id number] 10:44:00 Test Item Value Reference Range Comments POTASSIUM (BEAKER) (test krjf=096) 5.9 meq/L 3.5-5.1 HEPATIC FUNCTION [id number] 10:44:00 Test Item Value Reference Range Comments TOTAL PROTEIN (BEAKER) (test yvgk=879) 5.5 gm/dL 6.0-8.3 ALBUMIN (BEAKER) (test msvc=9319) 2.8 g/dL 3.5-5.0 BILIRUBIN TOTAL (BEAKER) (test qfrm=239) 2.3 mg/dL 0.2-1.2 BILIRUBIN DIRECT (BEAKER) (test myqh=022) 1.6 mg/dL 0.1-0.5 ALKALINE PHOSPHATASE (BEAKER) (test kzqf=527) 50 U/L 40-150 AST (SGOT) (BEAKER) (test ajki=435) 856 U/L 5-34 ALT (SGPT) (BEAKER) (test wjrh=190) 420 U/L 6-55 PRN - repeat glucose levels every 1 hour or as specified by insulin titration orders until glucose level is less than 450 mg/dLPRN - repeat potassium levels every 1 hour until glucose level is less than 450 mg/dLPROTHROMBIN [id number] 10:43:00 Test Item Value Reference Range Comments PROTIME (BEAKER) (test rbqc=857) 19.5 seconds 11.7-14.7 INR (BEAKER) (test fyag=722) 1.7 <=5.9 RECOMMENDED COUMADIN/WARFARIN INR THERAPY RANGESSTANDARD DOSE: 2.0 - 3.0 Includes: PROPHYLAXIS forvenous thrombosis, systemic embolization; TREATMENT for venous thrombosis and/or pulmonary embolus.HIGH RISK: Target INR is 2.5-3.5 for patients with mechanical heart valves.LACTIC ACID, ARTERIAL, WHOLE [id number] 10:38:00 Test Item Value Reference Range Comments LACTATE BLOOD ARTERIAL (2) 13.1 mmol/L 0.5-2.2 Specimen slightly hemolyzed (BEAKER) (test rmsa=4538) Effective 01/04/2016: Units/Reference Range ChangeNew: 0.5-2.2 mmol/L Previous: 5 -20 mg/dLCBC W/PLT COUNT & AUTO [id number] 10:23:00 Test Item Value Reference Range Comments WHITE BLOOD CELL COUNT (BEAKER) (test ilzl=979) 10.3 K/ L 3.5-10.5 RED BLOOD CELL COUNT (BEAKER) (test accp=439) 3.75 M/ L 4.63-6.08 HEMOGLOBIN (BEAKER) (test skeq=246) 11.8 GM/DL 13.7-17.5 HEMATOCRIT (BEAKER) (test yeys=727) 36.6 % 40.1-51.0 MEAN CORPUSCULAR VOLUME (BEAKER) (test zzko=609) 97.6 fL 79.0-92.2 MEAN CORPUSCULAR HEMOGLOBIN (BEAKER) (test 31.5 pg 25.7-32.2 rgas=833) MEAN CORPUSCULAR HEMOGLOBIN CONC (BEAKER) (test 32.2 GM/DL 32.3-36.5 zxkm=635) RED CELL DISTRIBUTION WIDTH (BEAKER) (test 19.2 % 11.6-14.4 jhfk=913) PLATELET COUNT (BEAKER) (test nkqp=090) 125 K/CU MM 150-450 MEAN PLATELET VOLUME (BEAKER) (test ithj=566) 10.7 fL 9.4-12.4 NUCLEATED RED BLOOD CELLS (BEAKER) (test 1 /100 WBC 0-0 umer=356) NEUTROPHILS RELATIVE PERCENT (BEAKER) (test 86 % rbby=122) LYMPHOCYTES RELATIVE PERCENT (BEAKER) (test 4 % bysm=212) MONOCYTES RELATIVE PERCENT (BEAKER) (test 9 % qybo=718) EOSINOPHILS RELATIVE PERCENT (BEAKER) (test 0 % faib=691) BASOPHILS RELATIVE PERCENT (BEAKER) (test 0 % zzqc=728) NEUTROPHILS ABSOLUTE COUNT (BEAKER) (test 8.88 K/ L 1.78-5.38 awih=395) LYMPHOCYTES ABSOLUTE COUNT (BEAKER) (test 0.41 K/ L 1.32-3.57 zrhb=618) MONOCYTES ABSOLUTE COUNT (BEAKER) (test 0.91 K/ L 0.30-0.82 slzu=752) EOSINOPHILS ABSOLUTE COUNT (BEAKER) (test 0.00 K/ L 0.04-0.54 qaff=330) BASOPHILS ABSOLUTE COUNT (BEAKER) (test 0.02 K/ L 0.01-0.08 feac=840) IMMATURE GRANULOCYTES-RELATIVE PERCENT (BEAKER) 1 % 0-1 (test ueyd=4152) BLOOD GAS, [id number] 10:20:00 Test Item Value Reference Range Comments PH ARTERIAL (BEAKER) (test mbhf=050) 7.29 7.35-7.45 PCO2 ARTERIAL (BEAKER) (test rcvu=199) 40 mmHg 35-45 PO2 ARTERIAL (BEAKER) (test rqjw=220) 185 mmHg 80-90 O2 SATURATION ARTERIAL (BEAKER) (test pqoc=139) 99.1 % 96.0-97.0 HCO3 ARTERIAL (BEAKER) (test nfcf=468) 18 mmol/L 21-29 BASE EXCESS ARTERIAL (BEAKER) (test hdqr=238) -7.7 mmol/L -2.0-3.0 PATIENT TEMPERATURE (BEAKER) (test dffa=8667) 37.3 C FIO2 (BEAKER) (test chtj=9917) 40.0 % [id number] 09:01:00 Test Item Value Reference Range Comments POTASSIUM (BEAKER) (test mbtn=298) 5.9 meq/L 3.5-5.1 PRN - repeat glucose levels every 1 hour or as specified by insulin titration orders until glucose level is less than 450 mg/[id number] 09:01:00 Test Item Value Reference Range Comments MAGNESIUM (BEAKER) (test zkco=015) 1.7 mg/dL 1.6-2.6 PRN - repeat glucose levels every 1 hour or as specified by insulin titration orders until glucose level is less than 450 mg/[id number] 09:01:00 Test Item Value Reference Range Comments PHOSPHORUS (BEAKER) (test twmm=072) 4.7 mg/dL 2.3-4.7 PRN - repeat glucose levels every 1 hour or as specified by insulin titration orders until glucose level is less than 450 mg/[id number] 09:01:00 Test Item Value Reference Range Comments GLUCOSE RANDOM (BEAKER) (test rzsf=020) 50 mg/dL 70-105 PRN - repeat glucose levels every 1 hour or as specified by insulin titration orders until glucose level is less than 450 mg/dLCALCIUM, [id number] 08: 47:00 Test Item Value Reference Range Comments CALCIUM IONIZED (BEAKER) (test gvkq=166) 1.24 mmol/L 1.12-1.27 PH, BLOOD (BEAKER) (test sfqe=0295) 7.31 [id number] 08:45:00 Test Item Value Reference Range Comments PARTIAL THROMBOPLASTIN TIME (BEAKER) (test 53.7 seconds 22.5-36.0 ljqw=854) BLOOD GAS, [id number] 08:41:00 Test Item Value Reference Range Comments PH ARTERIAL (BEAKER) (test heut=047) 7.31 7.35-7.45 PCO2 ARTERIAL (BEAKER) (test hfyc=173) 37 mmHg 35-45 PO2 ARTERIAL (BEAKER) (test pxaa=038) 192 mmHg 80-90 O2 SATURATION ARTERIAL (BEAKER) (test dkxc=767) 99.2 % 96.0-97.0 HCO3 ARTERIAL (BEAKER) (test smxn=609) 18 mmol/L 21-29 BASE EXCESS ARTERIAL (BEAKER) (test udms=454) -7.6 mmol/L -2.0-3.0 PATIENT TEMPERATURE (BEAKER) (test ueks=8525) 37.5 C FIO2 (BEAKER) (test bjwj=6732) 40.0 % PH, [id number] 08:41:00 Test Item Value Reference Range Comments PH ARTERIAL (BEAKER) (test ncjr=152) 7.31 7.35-7.45 RAD, CHEST, 1 VIEW, NON [id number] 07:31:00Reason for exam:->s/p cardiac surgeryShould this be performed at the bedside?->YesFINAL REPORT INDICATION: s/p cardiac surgery COMPARISON: January 10, 2018 at 10:22 PM TECHNIQUE: Chest radiograph, single view, portable technique. FINDINGS / IMPRESSION: There is a new esophageal probe, presumably for transesophageal echocardiography. Other support lines and tubes are unchanged in appearance satisfactory position. Cardiac valve replacement and prominent heart shadow and pulmonary venous congestion again demonstrated with probable layering left pleural effusion. No discrete consolidation and no pneumothorax demonstrated. Signed: Pedro Xie MDReport VerifiedDate/Time: 01/11/2018 07:31:38 Reading Location: [facility] [id number] Ortho Consult Reading Room BLOOD GAS, [id number] 06:54:00 Test Item Value Reference Range Comments PH ARTERIAL (BEAKER) (test xtxr=449) 7.28 7.35-7.45 PCO2 ARTERIAL (BEAKER) (test unbh=292) 40 mmHg 35-45 PO2 ARTERIAL (BEAKER) (test dtxh=670) 206 mmHg 80-90 O2 SATURATION ARTERIAL (BEAKER) (test otqj=126) 99.3 % 96.0-97.0 HCO3 ARTERIAL (BEAKER) (test kxde=169) 18 mmol/L 21-29 BASE EXCESS ARTERIAL (BEAKER) (test wvfo=963) -7.9 mmol/L -2.0-3.0 PATIENT TEMPERATURE (BEAKER) (test qrpu=7728) 37.3 C FIO2 (BEAKER) (test zefo=9502) 40.0 % BASIC METABOLIC [id number] 06:12:00 Test Item Value Reference Range Comments SODIUM (BEAKER) (test 141 meq/L 136-145 djlq=144) POTASSIUM (BEAKER) (test 4.7 meq/L 3.5-5.1 miap=019) CHLORIDE (BEAKER) (test 109 meq/L 98-107 agpc=139) CO2 (BEAKER) (test 17 meq/L 22-29 ilxm=338) BLOOD UREA NITROGEN 31 mg/dL 7-21 (BEAKER) (test tdlt=778) CREATININE (BEAKER) (test 4.41 mg/dL 0.57-1.25 jaco=533) GLUCOSE RANDOM (BEAKER) 86 mg/dL 70-105 (test wqxm=077) CALCIUM (BEAKER) (test 10.6 mg/dL 8.4-10.2 yxji=905) EGFR (BEAKER) (test 17 mL/min/1.73 sq m ESTIMATED GFR IS NOT kbxd=0422) ACCURATE CREATININE CLEARANCE IN PREDICTING GLOMERULAR FILTRATION RATE. ESTIMATED GFR IS NOT APPLICABLE FOR DIALYSIS PATIENTS. POCT-GLUCOSE [id number] 05:58:00 Test Item Value Reference Range Comments POC-GLUCOSE METER (BEAKER) 121 mg/dL 70-110 TESTED AT [address] (test drna=5264) [facility] [address] POCT-GLUCOSE [id number] 05:58:00 Test Item Value Reference Range Comments POC-GLUCOSE METER (BEAKER) 66 mg/dL 70-110 Will Repeat Test/TESTED AT (test sgvq=4801) [address] [address] [id number] 05:51:00 Test Item Value Reference Range Comments PHOSPHORUS (BEAKER) (test yceq=535) 3.5 mg/dL 2.3-4.7 [id number] 05:51:00 Test Item Value Reference Range Comments MAGNESIUM (BEAKER) (test jwkh=171) 1.9 mg/dL 1.6-2.6 BLOOD GAS, [id number] 05:47:00 Test Item Value Reference Range Comments PH ARTERIAL (BEAKER) (test kydt=861) 7.32 7.35-7.45 PCO2 ARTERIAL (BEAKER) (test dmvh=111) 40 mmHg 35-45 PO2 ARTERIAL (BEAKER) (test tugc=784) 190 mmHg 80-90 O2 SATURATION ARTERIAL (BEAKER) (test rqlh=893) 99.2 % 96.0-97.0 HCO3 ARTERIAL (BEAKER) (test kvsv=109) 20 mmol/L 21-29 BASE EXCESS ARTERIAL (BEAKER) (test kdui=733) -5.6 mmol/L -2.0-3.0 PATIENT TEMPERATURE (BEAKER) (test iblq=8974) 36.6 C FIO2 (BEAKER) (test yxay=9001) 40.0 % POCT-GLUCOSE [id number] 05:27:00 Test Item Value Reference Range Comments POC-GLUCOSE METER (BEAKER) 112 mg/dL 70-110 TESTED AT [address] (test oqxk=8422) [place] [id number] POCT-GLUCOSE [id number] 05:27:00 Test Item Value Reference Range Comments POC-GLUCOSE METER (BEAKER) 106 mg/dL 70-110 TESTED AT [address] (test egbl=4467) [facility] [address] POCT-GLUCOSE [id number] 05:26:00 Test Item Value Reference Range Comments POC-GLUCOSE METER (BEAKER) 66 mg/dL 70-110 TESTED AT [address] (test ndsj=0422) [facility] [address] LACTIC ACID, ARTERIAL, WHOLE [id number] 04:59:00 Test Item Value Reference Range Comments LACTATE BLOOD ARTERIAL (2) 12.2 mmol/L 0.5-2.2 Specimen slightly hemolyzed (BEAKER) (test uvcq=1381) Effective 01/04/2016: Units/Reference Range ChangeNew: 0.5-2.2 mmol/L Previous: 5 -20 mg/dLCALCIUM, [id number] 04:57:00 Test Item Value Reference Range Comments CALCIUM IONIZED (BEAKER) (test hrkt=143) 1.33 mmol/L 1.12-1.27 PH, BLOOD (BEAKER) (test cjny=0889) 7.30 BLOOD GAS, [id number] 04:57:00 Test Item Value Reference Range Comments PH ARTERIAL (BEAKER) (test reka=473) 7.32 7.35-7.45 PCO2 ARTERIAL (BEAKER) (test dlvt=566) 40 mmHg 35-45 PO2 ARTERIAL (BEAKER) (test ekzn=015) 193 mmHg 80-90 O2 SATURATION ARTERIAL (BEAKER) (test azyf=527) 99.2 % 96.0-97.0 HCO3 ARTERIAL (BEAKER) (test vxxk=821) 20 mmol/L 21-29 BASE EXCESS ARTERIAL (BEAKER) (test qkjj=479) -6.0 mmol/L -2.0-3.0 PATIENT TEMPERATURE (BEAKER) (test usly=3193) 35.5 C FIO2 (BEAKER) (test curm=5162) 45.0 % OXYGEN SATURATION, [id number] 04:56:00 Test Item Value Reference Range Comments O2 SATURATION (MEASURED) (BEAKER) (test hbvh=0153) 83.2 % CBC W/PLT COUNT & AUTO [id number] 04:56:00 Test Item Value Reference Range Comments WHITE BLOOD CELL COUNT (BEAKER) (test haqh=624) 12.5 K/ L 3.5-10.5 RED BLOOD CELL COUNT (BEAKER) (test szne=980) 3.79 M/ L 4.63-6.08 HEMOGLOBIN (BEAKER) (test mjff=451) 12.0 GM/DL 13.7-17.5 HEMATOCRIT (BEAKER) (test mkku=419) 36.8 % 40.1-51.0 MEAN CORPUSCULAR VOLUME (BEAKER) (test vtbz=601) 97.1 fL 79.0-92.2 MEAN CORPUSCULAR HEMOGLOBIN (BEAKER) (test 31.7 pg 25.7-32.2 rxyv=387) MEAN CORPUSCULAR HEMOGLOBIN CONC (BEAKER) (test 32.6 GM/DL 32.3-36.5 lsle=557) RED CELL DISTRIBUTION WIDTH (BEAKER) (test 18.2 % 11.6-14.4 pnkv=580) PLATELET COUNT (BEAKER) (test vpnj=020) 134 K/CU MM 150-450 MEAN PLATELET VOLUME (BEAKER) (test mmgs=099) 10.9 fL 9.4-12.4 NUCLEATED RED BLOOD CELLS (BEAKER) (test 0 /100 WBC 0-0 toou=674) NEUTROPHILS RELATIVE PERCENT (BEAKER) (test 89 % phrh=465) LYMPHOCYTES RELATIVE PERCENT (BEAKER) (test 2 % pkob=479) MONOCYTES RELATIVE PERCENT (BEAKER) (test 8 % hckr=269) EOSINOPHILS RELATIVE PERCENT (BEAKER) (test 0 % mvcd=309) BASOPHILS RELATIVE PERCENT (BEAKER) (test 0 % euqe=241) NEUTROPHILS ABSOLUTE COUNT (BEAKER) (test 11.15 K/ L 1.78-5.38 ujrv=657) LYMPHOCYTES ABSOLUTE COUNT (BEAKER) (test 0.30 K/ L 1.32-3.57 qept=453) MONOCYTES ABSOLUTE COUNT (BEAKER) (test 0.97 K/ L 0.30-0.82 bfdo=902) EOSINOPHILS ABSOLUTE COUNT (BEAKER) (test 0.01 K/ L 0.04-0.54 jejn=385) BASOPHILS ABSOLUTE COUNT (BEAKER) (test 0.02 K/ L 0.01-0.08 cvxh=977) IMMATURE GRANULOCYTES-RELATIVE PERCENT (BEAKER) 1 % 0-1 (test bhuy=8696) CALCIUM, [id number] 03:38:00 Test Item Value Reference Range Comments CALCIUM IONIZED (BEAKER) (test vngt=274) 1.32 mmol/L 1.12-1.27 PH, BLOOD (BEAKER) (test vpri=6972) 7.29 BLOOD GAS, [id number] 03:36:00 Test Item Value Reference Range Comments PH ARTERIAL (BEAKER) (test nitp=620) 7.31 7.35-7.45 PCO2 ARTERIAL (BEAKER) (test yxha=483) 36 mmHg 35-45 PO2 ARTERIAL (BEAKER) (test rthn=313) 207 mmHg 80-90 O2 SATURATION ARTERIAL (BEAKER) (test aqlm=771) 99.3 % 96.0-97.0 HCO3 ARTERIAL (BEAKER) (test mloe=508) 19 mmol/L 21-29 BASE EXCESS ARTERIAL (BEAKER) (test yoqd=264) -7.6 mmol/L -2.0-3.0 PATIENT TEMPERATURE (BEAKER) (test bszm=1187) 34.9 C FIO2 (BEAKER) (test hull=2672) 50.0 % HGB/HCT (H&H) - STAT [id number] 03:36:00 Test Item Value Reference Range Comments HEMOGLOBIN (BEAKER) (test jqll=767) 12.5 g/dL 13.0-16.8 HEMATOCRIT (BEAKER) (test obdu=025) 37.0 % 40.0-50.0 OXYGEN SATURATION, [id number] 03:35:00 Test Item Value Reference Range Comments O2 SATURATION (MEASURED) (BEAKER) (test oowy=4553) 80.3 % GLUCOSE-STAT [id number] 03:34:00 Test Item Value Reference Range Comments GLUCOSE RANDOM (BEAKER) (test wgre=350) 91 mg/dL 70-110 SODIUM NA-STAT [id number] 03:34:00 Test Item Value Reference Range Comments SODIUM (BEAKER) (test qbbj=973) 137 meq/L 135-148 POTASSIUM-STAT [id number] 03:34:00 Test Item Value Reference Range Comments POTASSIUM (BEAKER) (test udlt=064) 4.6 meq/L 3.6-5.5 BLOOD GAS, [id number] 03:01:00 Test Item Value Reference Range Comments PH ARTERIAL (BEAKER) (test trbl=248) 7.34 7.35-7.45 PCO2 ARTERIAL (BEAKER) (test nrxz=554) 37 mmHg 35-45 PO2 ARTERIAL (BEAKER) (test anxa=428) 100 mmHg 80-90 O2 SATURATION ARTERIAL (BEAKER) (test dmtq=357) 97.8 % 96.0-97.0 HCO3 ARTERIAL (BEAKER) (test eove=173) 20 mmol/L 21-29 BASE EXCESS ARTERIAL (BEAKER) (test lklv=544) -5.7 mmol/L -2.0-3.0 PATIENT TEMPERATURE (BEAKER) (test gnzo=3657) 34.6 C FIO2 (BEAKER) (test bmvj=6357) 50.0 % HGB/HCT (H&H) - STAT [id number] 03:01:00 Test Item Value Reference Range Comments HEMOGLOBIN (BEAKER) (test eejf=337) 12.0 g/dL 13.0-16.8 HEMATOCRIT (BEAKER) (test nrkq=436) 35.0 % 40.0-50.0 POTASSIUM-STAT [id number] 03:00:00 Test Item Value Reference Range Comments POTASSIUM (BEAKER) (test dnqw=628) 5.0 meq/L 3.6-5.5 GLUCOSE-STAT [id number] 03:00:00 Test Item Value Reference Range Comments GLUCOSE RANDOM (BEAKER) (test wyod=581) 102 mg/dL 70-110 SODIUM NA-STAT [id number] 03:00:00 Test Item Value Reference Range Comments SODIUM (BEAKER) (test lbux=845) 140 meq/L 135-148 LACTIC ACID, ARTERIAL, WHOLE [id number] 01:53:00 Test Item Value Reference Range Comments LACTATE BLOOD ARTERIAL (2) 9.4 mmol/L 0.5-2.2 Specimen slightly hemolyzed (BEAKER) (test ayjm=9119) Effective 01/04/2016: Units/Reference Range ChangeNew: 0.5-2.2 mmol/L Previous: 5 -20 mg/dLGLUCOSE-STAT [id number] 01:27:00 Test Item Value Reference Range Comments GLUCOSE RANDOM (BEAKER) (test emsj=972) 99 mg/dL 70-110 BLOOD GAS, [id number] 01:27:00 Test Item Value Reference Range Comments PH ARTERIAL (BEAKER) (test eona=148) 7.33 7.35-7.45 PCO2 ARTERIAL (BEAKER) (test btkw=601) 37 mmHg 35-45 PO2 ARTERIAL (BEAKER) (test lqjk=225) 325 mmHg 80-90 O2 SATURATION ARTERIAL (BEAKER) (test qaqj=240) 99.7 % 96.0-97.0 HCO3 ARTERIAL (BEAKER) (test xeiv=532) 20 mmol/L 21-29 BASE EXCESS ARTERIAL (BEAKER) (test uiwl=650) -6.6 mmol/L -2.0-3.0 PATIENT TEMPERATURE (BEAKER) (test yrwu=1284) 33.9 C FIO2 (BEAKER) (test wbfh=9460) 100.0 % HGB/HCT (H&H) - STAT [id number] 01:27:00 Test Item Value Reference Range Comments HEMOGLOBIN (BEAKER) (test ymdf=539) 12.7 g/dL 13.0-16.8 HEMATOCRIT (BEAKER) (test gxjw=760) 37.0 % 40.0-50.0 SODIUM NA-STAT [id number] 01:26:00 Test Item Value Reference Range Comments SODIUM (BEAKER) (test npqp=092) 141 meq/L 135-148 POTASSIUM-STAT [id number] 01:26:00 Test Item Value Reference Range Comments POTASSIUM (BEAKER) (test mhzn=402) 3.6 meq/L 3.6-5.5 [id number] 00:38:00 Test Item Value Reference Range Comments PARTIAL THROMBOPLASTIN TIME (BEAKER) (test 47.4 seconds 22.5-36.0 fqwy=067) [id number] 00:35:00 Test Item Value Reference Range Comments POTASSIUM (BEAKER) (test 3.5 meq/L 3.5-5.1 Specimen slightly hemolyzed rgpl=101) CALCIUM, [id number] 00:25:00 Test Item Value Reference Range Comments CALCIUM IONIZED (BEAKER) (test xudc=643) 1.43 mmol/L 1.12-1.27 PH, BLOOD (BEAKER) (test gmef=4700) 7.33 THROMBOELASTOGRAPH (TEG)[id number] 23:05:00 Test Item Value Reference Range Comments TEG ACTIVATED CLOTTING TIME (BEAKER) (test 7.2 minutes 4.0-7.0 sscc=3742) TEG FIBRINOGEN ACTIVITY (BEAKER) (test 67.4 degrees 61.0-73.0 xnwb=8562) TEG PLT. AGGREGATION (BEAKER) (test csht=8776) 49.8 MM 55.0-65.0 TEG FIBRINOLYSIS (BEAKER) (test uhhb=3187) 15.1 % 0.0-5.0 TGH ACTIVATED CLOTTING TIME (BEAKER) (test 6.9 minutes 4.0-7.0 odee=0517) TGH FIBRINOGEN ACTIVITY (BEAKER) (test 69.4 degrees 61.0-73.0 eajv=5330) TGH PLT. AGGREGATION (BEAKER) (test fvvf=1270) 55.8 MM 55.0-65.0 TGH FIBRINOLYSIS (BEAKER) (test hirn=7013) 0.0 % 0.0-5.0 RAD, CHEST, 1 VIEW, NON [id number] 22:36:00Reason for exam:->s/p BronchoscopyFINAL REPORT CLINICAL INDICATION: Post bronchoscopy Comparison: Same date [id number] hours There is improved aeration of the right upper lobe. No pneumothorax is present. Hazy opacity in the right upper lobe and in the retrocardiac lower lungs may reflect atelectasis but pneumonitis should be excluded clinically. The cardiomediastinal contours are stable. Support lines are stable. Signed: Kellen Parra MDReport Verified Date/ Time: 01/10/2018 22:36:29 Reading Location: [address] Reading Room [facility] [id number] 22:01:00 Test Item Value Reference Range Comments SODIUM (BEAKER) (test 144 meq/L 136-145 qdpy=671) POTASSIUM (BEAKER) (test 3.9 meq/L 3.5-5.1 Specimen slightly uzff=230) hemolyzed CHLORIDE (BEAKER) (test 109 meq/L 98-107 thmb=122) CO2 (BEAKER) (test 20 meq/L 22-29 ocib=205) BLOOD UREA NITROGEN 39 mg/dL 7-21 (BEAKER) (test urqb=926) CREATININE (BEAKER) (test 6.14 mg/dL 0.57-1.25 Specimen slightly yuxy=036) hemolyzed GLUCOSE RANDOM (BEAKER) 105 mg/dL 70-105 (test tqdd=641) CALCIUM (BEAKER) (test 12.8 mg/dL 8.4-10.2 brkq=421) EGFR (BEAKER) (test 11 mL/min/1.73 sq m ESTIMATED GFR IS NOT qnvg=5862) ACCURATE CREATININE CLEARANCE IN PREDICTING GLOMERULAR FILTRATION RATE. ESTIMATED GFR IS NOT APPLICABLE FOR DIALYSIS PATIENTS. [id number] 22:00:00 Test Item Value Reference Range Comments MAGNESIUM (BEAKER) (test 2.4 mg/dL 1.6-2.6 Specimen slightly hemolyzed zpsl=310) [id number] 22:00:00 Test Item Value Reference Range Comments PHOSPHORUS (BEAKER) (test 3.2 mg/dL 2.3-4.7 Specimen slightly hemolyzed hrvg=435) LACTIC ACID, ARTERIAL, WHOLE [id number] 21:57:00 Test Item Value Reference Range Comments LACTATE BLOOD ARTERIAL (2) 10.2 mmol/L 0.5-2.2 Specimen slightly hemolyzed (BEAKER) (test plmv=4789) Effective 01/04/2016: Units/Reference Range ChangeNew: 0.5-2.2 mmol/L Previous: 5 -20 mg/dLCBC W/PLT COUNT & AUTO [id number] 21:51:00 Test Item Value Reference Range Comments WHITE BLOOD CELL COUNT (BEAKER) (test rcod=778) 12.9 K/ L 3.5-10.5 RED BLOOD CELL COUNT (BEAKER) (test zgtk=687) 2.52 M/ L 4.63-6.08 HEMOGLOBIN (BEAKER) (test aiyo=719) 8.0 GM/DL 13.7-17.5 HEMATOCRIT (BEAKER) (test rpzx=638) 24.9 % 40.1-51.0 MEAN CORPUSCULAR VOLUME (BEAKER) (test jmfk=670) 98.8 fL 79.0-92.2 MEAN CORPUSCULAR HEMOGLOBIN (BEAKER) (test 31.7 pg 25.7-32.2 cbmw=624) MEAN CORPUSCULAR HEMOGLOBIN CONC (BEAKER) (test 32.1 GM/DL 32.3-36.5 xgar=126) RED CELL DISTRIBUTION WIDTH (BEAKER) (test 17.2 % 11.6-14.4 lxfh=227) PLATELET COUNT (BEAKER) (test nkzq=198) 150 K/CU MM 150-450 MEAN PLATELET VOLUME (BEAKER) (test qfus=701) 9.8 fL 9.4-12.4 NUCLEATED RED BLOOD CELLS (BEAKER) (test 1 /100 WBC 0-0 rbek=463) NEUTROPHILS RELATIVE PERCENT (BEAKER) (test 85 % zkdl=314) LYMPHOCYTES RELATIVE PERCENT (BEAKER) (test 9 % ehbj=002) MONOCYTES RELATIVE PERCENT (BEAKER) (test 6 % fded=283) EOSINOPHILS RELATIVE PERCENT (BEAKER) (test 0 % bubj=661) BASOPHILS RELATIVE PERCENT (BEAKER) (test 0 % stmx=302) NEUTROPHILS ABSOLUTE COUNT (BEAKER) (test 10.97 K/ L 1.78-5.38 fjva=355) LYMPHOCYTES ABSOLUTE COUNT (BEAKER) (test 1.10 K/ L 1.32-3.57 uayn=370) MONOCYTES ABSOLUTE COUNT (BEAKER) (test 0.72 K/ L 0.30-0.82 evim=215) EOSINOPHILS ABSOLUTE COUNT (BEAKER) (test 0.04 K/ L 0.04-0.54 nydj=339) BASOPHILS ABSOLUTE COUNT (BEAKER) (test 0.01 K/ L 0.01-0.08 hrjw=683) IMMATURE GRANULOCYTES-RELATIVE PERCENT (BEAKER) 1 % 0-1 (test wddf=8096) [id number] 21:49:00 Test Item Value Reference Range Comments PARTIAL THROMBOPLASTIN TIME (BEAKER) (test 41.2 seconds 22.5-36.0 xesg=977) PROTHROMBIN TIME/[id number] 21:48:00 Test Item Value Reference Range Comments PROTIME (BEAKER) (test smmd=192) 19.8 seconds 11.7-14.7 INR (BEAKER) (test zlga=683) 1.7 <=5.9 RECOMMENDED COUMADIN/WARFARIN INR THERAPY RANGESSTANDARD DOSE: 2.0 - 3.0 Includes: PROPHYLAXIS forvenous thrombosis, systemic embolization; TREATMENT for venous thrombosis and/or pulmonary embolus.HIGH RISK: Target INR is 2.5-3.5 for patients with mechanical heart valves.[id number] 21:48:00 Test Item Value Reference Range Comments FIBRINOGEN LEVEL (BEAKER) (test jwlk=310) 221 mg/dl 225-434 CALCIUM, [id number] 21:33:00 Test Item Value Reference Range Comments CALCIUM IONIZED (BEAKER) (test ndoy=364) 1.54 mmol/L 1.12-1.27 PH, BLOOD (BEAKER) (test cdwi=2683) 7.33 OXYGEN SATURATION, [id number] 21:33:00 Test Item Value Reference Range Comments O2 SATURATION (MEASURED) (BEAKER) (test qczd=2871) 67.1 % GLUCOSE-STAT [id number] 21:32:00 Test Item Value Reference Range Comments GLUCOSE RANDOM (BEAKER) (test qavk=232) 98 mg/dL 70-110 SODIUM NA-STAT [id number] 21:32:00 Test Item Value Reference Range Comments SODIUM (BEAKER) (test qvfo=283) 139 meq/L 135-148 POTASSIUM-STAT [id number] 21:32:00 Test Item Value Reference Range Comments POTASSIUM (BEAKER) (test hwbg=773) 3.6 meq/L 3.6-5.5 BLOOD GAS, [id number] 21:32:00 Test Item Value Reference Range Comments PH ARTERIAL (BEAKER) (test bcwg=504) 7.33 7.35-7.45 PCO2 ARTERIAL (BEAKER) (test coue=118) 44 mmHg 35-45 PO2 ARTERIAL (BEAKER) (test sepu=553) 98 mmHg 80-90 O2 SATURATION ARTERIAL (BEAKER) (test eokt=980) 97.1 % 96.0-97.0 HCO3 ARTERIAL (BEAKER) (test tuku=227) 23 mmol/L 21-29 BASE EXCESS ARTERIAL (BEAKER) (test ioek=976) -3.1 mmol/L -2.0-3.0 PATIENT TEMPERATURE (BEAKER) (test coqr=3237) 36.6 C FIO2 (BEAKER) (test wmfw=0988) 60.0 % HGB/HCT (H&H) - STAT [id number] 21:32:00 Test Item Value Reference Range Comments HEMOGLOBIN (BEAKER) (test ahgz=484) 8.2 g/dL 13.0-16.8 HEMATOCRIT (BEAKER) (test hahc=132) 24.0 % 40.0-50.0 RAD, CHEST, 1 VIEW, NON [id number] 21:32:00Reason for exam:->s/p cardiac surgeryShould this be performed at the bedside?->YesFINAL REPORT Chest, 1 view, 01/10/2018 9:28 PM. History: Postop. Comparison: 2017. Discussion: The cardiomediastinal silhouette and pulmonary vasculature are prominent. There is right upper lobe atelectatic collapse with elevation of the fissure. Right-sided chest tube is present. There is a tiny right apical pneumothorax. Hazy opacity is present throughout the left lung.Multiple new median sternotomy wires are present. Mediastinal drain is noted. Prosthetic heart valveis present. ET tube terminates at the level of the clavicles. Right IJ Medford-Moni catheter terminatesin the distal right pulmonary artery. The soft tissues and osseous structures are intact. IMPRESSION: Postoperative changes with right upper lobe collapse, likely secondary to mucous plugging. Supporting lines and tubes as described above. Note position of the Medford-Moni catheter. Signed: Moiz Musaeport Verified Date/Time: 01/10/2018 21:32:31 Reading Location: [facility] B1 [id number] Consult Reading Room THROMBOELASTOGRAPH (TEG) 21:01:00 Test Item Value Reference Range Comments TEG ACTIVATED CLOTTING TIME (BEAKER) (test 19.1 minutes 4.0-7.0 fkbi=1355) TEG FIBRINOGEN ACTIVITY (BEAKER) (test 45.3 degrees 61.0-73.0 ppwp=1782) TEG PLT. AGGREGATION (BEAKER) (test upzb=9984) 42.1 MM 55.0-65.0 TGH ACTIVATED CLOTTING TIME (BEAKER) (test 12.9 minutes 4.0-7.0 rdqd=3507) TGH FIBRINOGEN ACTIVITY (BEAKER) (test 24.6 degrees 61.0-73.0 oydi=3439) TGH PLT. AGGREGATION (BEAKER) (test aboe=7991) 40.1 MM 55.0-65.0 CALCIUM, [id number] 20:42:00 Test Item Value Reference Range Comments CALCIUM IONIZED (BEAKER) (test zper=583) 1.41 mmol/L 1.12-1.27 PH, BLOOD (BEAKER) (test csgz=6733) 7.41 SODIUM NA-STAT [id number] 20:41:00 Test Item Value Reference Range Comments SODIUM (BEAKER) (test ltma=107) 138 meq/L 135-148 POTASSIUM-STAT [id number] 20:41:00 Test Item Value Reference Range Comments POTASSIUM (BEAKER) (test rbiw=588) 3.7 meq/L 3.6-5.5 BLOOD GAS, [id number] 20:41:00 Test Item Value Reference Range Comments PH ARTERIAL (BEAKER) (test lhld=675) 7.41 7.35-7.45 PCO2 ARTERIAL (BEAKER) (test iqsf=103) 32 mmHg 35-45 PO2 ARTERIAL (BEAKER) (test djia=572) 153 mmHg 80-90 O2 SATURATION ARTERIAL (BEAKER) (test ndmf=348) 99.1 % 96.0-97.0 HCO3 ARTERIAL (BEAKER) (test iegm=827) 21 mmol/L 21-29 BASE EXCESS ARTERIAL (BEAKER) (test qlxl=510) -4.2 mmol/L -2.0-3.0 PATIENT TEMPERATURE (BEAKER) (test exsc=6478) 32.0 C FIO2 (BEAKER) (test vswg=4279) 100.0 % GLUCOSE-STAT [id number] 20:41:00 Test Item Value Reference Range Comments GLUCOSE RANDOM (BEAKER) (test ulyd=819) 120 mg/dL 70-110 HGB/HCT (H&H) - STAT [id number] 20:41:00 Test Item Value Reference Range Comments HEMOGLOBIN (BEAKER) (test lnkb=650) 7.8 g/dL 13.0-16.8 HEMATOCRIT (BEAKER) (test oamx=399) 23.0 % 40.0-50.0 [id number] 20:23:00 Test Item Value Reference Range Comments FIBRINOGEN LEVEL (BEAKER) (test vnmb=860) 239 mg/dl 225-434 [id number] 20:23:00 Test Item Value Reference Range Comments PARTIAL THROMBOPLASTIN TIME (BEAKER) (test 38.6 seconds 22.5-36.0 hmmk=080) PROTHROMBIN TIME/[id number] 20:22:00 Test Item Value Reference Range Comments PROTIME (BEAKER) (test uvcs=701) 21.6 seconds 11.7-14.7 INR (BEAKER) (test cfwg=150) 1.9 <=5.9 RECOMMENDED COUMADIN/WARFARIN INR THERAPY RANGESSTANDARD DOSE: 2.0 - 3.0 Includes: PROPHYLAXIS forvenous thrombosis, systemic embolization; TREATMENT for venous thrombosis and/or pulmonary embolus.HIGH RISK: Target INR is 2.5-3.5 for patients with mechanical heart valves.[id number] 20:16:00 Test Item Value Reference Range Comments ACTIVATED CLOTTING TIME 114 sec TESTED AT [address] ([facility]) (test valm=863) [place] [id number] 20:16:00 Test Item Value Reference Range Comments ACTIVATED CLOTTING TIME 499 sec TESTED AT [address] ([facility]) (test esmu=548) [place] [address] [id number] 20:16:00 Test Item Value Reference Range Comments ACTIVATED CLOTTING TIME 483 sec TESTED AT [address] ([facility]) (test nyhn=379) [place] [address] [id number] 20:16:00 Test Item Value Reference Range Comments ACTIVATED CLOTTING TIME 538 sec TESTED AT [address] ([facility]) (test vqtt=101) [place] [address] [id number] 20:16:00 Test Item Value Reference Range Comments ACTIVATED CLOTTING TIME 615 sec TESTED AT [address] ([facility]) (test scgm=254) [place] [id number] 20:16:00 Test Item Value Reference Range Comments ACTIVATED CLOTTING TIME 692 sec TESTED AT [address] ([facility]) (test vxlj=587) [place] [id number] 20:16:00 Test Item Value Reference Range Comments ACTIVATED CLOTTING TIME 428 sec TESTED AT [address] ([facility]) (test pvbb=593) [place] [address] [id number] 20:16:00 Test Item Value Reference Range Comments ACTIVATED CLOTTING TIME 373 sec TESTED AT [address] ([facility]) (test sakg=091) [place] [id number] 20:16:00 Test Item Value Reference Range Comments ACTIVATED CLOTTING TIME 455 sec TESTED AT [address] ([facility]) (test tgmo=022) [place] [address] [id number] 20:16:00 Test Item Value Reference Range Comments ACTIVATED CLOTTING TIME 494 sec TESTED AT [address] (BEAKER) (test jngu=977) [place] [address] [id number] 20:16:00 Test Item Value Reference Range Comments ACTIVATED CLOTTING TIME 527 sec TESTED AT [address] (BEAKER) (test qxrs=502) [place] [address] [id number] 20:16:00 Test Item Value Reference Range Comments ACTIVATED CLOTTING TIME 610 sec TESTED AT [address] (BEAKER) (test uchn=174) [place] [address] [id number] 20:16:00 Test Item Value Reference Range Comments ACTIVATED CLOTTING TIME 576 sec TESTED AT [address] (BEAKER) (test ifsf=008) [place] [address] [id number] 20:16:00 Test Item Value Reference Range Comments ACTIVATED CLOTTING TIME 384 sec TESTED AT [address] (BEAKER) (test shne=740) [place] [address] PLATELET [id number] 20:08:00 Test Item Value Reference Range Comments PLATELET COUNT (BEAKER) (test klim=090) 47 K/CU MM 150-450 THROMBOELASTOGRAPH (TEG)[id number] 20:00:00 Test Item Value Reference Range Comments TEG ACTIVATED CLOTTING TIME (BEAKER) minutes 4.0-7.0 No clot detected (test pxzv=8750) TGH ACTIVATED CLOTTING TIME (BEAKER) 9.2 minutes 4.0-7.0 (test ocks=1734) TGH FIBRINOGEN ACTIVITY (BEAKER) (test 51.1 degrees 61.0-73.0 wqrl=9295) TGH PLT. AGGREGATION (BEAKER) (test 41.9 MM 55.0-65.0 ejoq=9241) TGH FIBRINOLYSIS (BEAKER) (test 0.0 % 0.0-5.0 ngpt=5203) CALCIUM, [id number] 19:59:00 Test Item Value Reference Range Comments CALCIUM IONIZED (BEAKER) (test kqty=836) 1.39 mmol/L 1.12-1.27 PH, BLOOD (BEAKER) (test mnxg=7920) 7.37 BLOOD GAS, [id number] 19:58:00 Test Item Value Reference Range Comments PH ARTERIAL (BEAKER) (test avgq=644) 7.39 7.35-7.45 PCO2 ARTERIAL (BEAKER) (test yjgi=088) 35 mmHg 35-45 PO2 ARTERIAL (BEAKER) (test yquf=563) 304 mmHg 80-90 O2 SATURATION ARTERIAL (BEAKER) (test hjwl=979) 99.7 % 96.0-97.0 HCO3 ARTERIAL (BEAKER) (test mgfq=390) 21 mmol/L 21-29 BASE EXCESS ARTERIAL (BEAKER) (test bfcc=232) -3.8 mmol/L -2.0-3.0 PATIENT TEMPERATURE (BEAKER) (test qhgg=9517) 36.0 C FIO2 (BEAKER) (test qvyh=2317) 100.0 % GLUCOSE-STAT [id number] 19:58:00 Test Item Value Reference Range Comments GLUCOSE RANDOM (BEAKER) (test zlay=330) 143 mg/dL 70-110 HGB/HCT (H&H) - STAT [id number] 19:58:00 Test Item Value Reference Range Comments HEMOGLOBIN (BEAKER) (test hzbi=828) 8.7 g/dL 13.0-16.8 HEMATOCRIT (BEAKER) (test iqiu=635) 26.0 % 40.0-50.0 SODIUM NA-STAT [id number] 19:57:00 Test Item Value Reference Range Comments SODIUM (BEAKER) (test guet=816) 140 meq/L 135-148 POTASSIUM-STAT [id number] 19:57:00 Test Item Value Reference Range Comments POTASSIUM (BEAKER) (test amnc=963) 3.9 meq/L 3.6-5.5 [id number] 19:29:00 Test Item Value Reference Range Comments PARTIAL THROMBOPLASTIN TIME (BEAKER) (test > seconds 22.5-36.0 esde=730) [id number] 19:16:00 Test Item Value Reference Range Comments FIBRINOGEN LEVEL (BEAKER) (test tvcq=991) 271 mg/dl 225-434 PROTHROMBIN TIME/[id number] 19:15:00 Test Item Value Reference Range Comments PROTIME (BEAKER) (test izsj=807) 21.3 seconds 11.7-14.7 INR (BEAKER) (test ecyi=438) 1.8 <=5.9 RECOMMENDED COUMADIN/WARFARIN INR THERAPY RANGESSTANDARD DOSE: 2.0 - 3.0 Includes: PROPHYLAXIS forvenous thrombosis, systemic embolization; TREATMENT for venous thrombosis and/or pulmonary embolus.HIGH RISK: Target INR is 2.5-3.5 for patients with mechanical heart valves.PLATELET [id number] 19:06:00 Test Item Value Reference Range Comments PLATELET COUNT (BEAKER) (test fbqy=330) 54 K/CU MM 150-450 BLOOD GAS, [id number] 18:49:00 Test Item Value Reference Range Comments PH ARTERIAL (BEAKER) (test ehvd=134) 7.46 7.35-7.45 PCO2 ARTERIAL (BEAKER) (test owpl=578) 32 mmHg 35-45 PO2 ARTERIAL (BEAKER) (test fvlp=715) 228 mmHg 80-90 O2 SATURATION ARTERIAL (BEAKER) (test kgwq=472) 99.6 % 96.0-97.0 HCO3 ARTERIAL (BEAKER) (test awqr=340) 23 mmol/L 21-29 BASE EXCESS ARTERIAL (BEAKER) (test qids=665) -1.0 mmol/L -2.0-3.0 PATIENT TEMPERATURE (BEAKER) (test leeu=2901) 34.0 C FIO2 (BEAKER) (test fvjl=3338) 100.0 % HGB/HCT (H&H) - STAT [id number] 18:44:00 Test Item Value Reference Range Comments HEMOGLOBIN (BEAKER) (test puyw=267) 10.1 g/dL 13.0-16.8 HEMATOCRIT (BEAKER) (test obkg=675) 30.0 % 40.0-50.0 SODIUM NA-STAT [id number] 18:43:00 Test Item Value Reference Range Comments SODIUM (BEAKER) (test dzoa=520) 137 meq/L 135-148 POTASSIUM-STAT [id number] 18:43:00 Test Item Value Reference Range Comments POTASSIUM (BEAKER) (test tjqy=404) 5.0 meq/L 3.6-5.5 GLUCOSE-STAT [id number] 18:43:00 Test Item Value Reference Range Comments GLUCOSE RANDOM (BEAKER) (test dhpb=406) 187 mg/dL 70-110 SODIUM NA-STAT [id number] 18:22:00 Test Item Value Reference Range Comments SODIUM (BEAKER) (test dpgh=808) 140 meq/L 135-148 POTASSIUM-STAT [id number] 18:22:00 Test Item Value Reference Range Comments POTASSIUM (BEAKER) (test hekz=024) 4.7 meq/L 3.6-5.5 BLOOD GAS, [id number] 18:22:00 Test Item Value Reference Range Comments PH ARTERIAL (BEAKER) (test enje=459) 7.38 7.35-7.45 PCO2 ARTERIAL (BEAKER) (test ehoc=452) 43 mmHg 35-45 PO2 ARTERIAL (BEAKER) (test javh=558) 282 mmHg 80-90 O2 SATURATION ARTERIAL (BEAKER) (test ltvx=864) 99.6 % 96.0-97.0 HCO3 ARTERIAL (BEAKER) (test vshp=139) 26 mmol/L 21-29 BASE EXCESS ARTERIAL (BEAKER) (test btki=528) -0.8 mmol/L -2.0-3.0 PATIENT TEMPERATURE (BEAKER) (test xvog=9122) 30.7 C FIO2 (BEAKER) (test ybki=1768) 60.0 % GLUCOSE-STAT [id number] 18:22:00 Test Item Value Reference Range Comments GLUCOSE RANDOM (BEAKER) (test turr=266) 209 mg/dL 70-110 HGB/HCT (H&H) - STAT [id number] 18:22:00 Test Item Value Reference Range Comments HEMOGLOBIN (BEAKER) (test dakr=202) 10.2 g/dL 13.0-16.8 HEMATOCRIT (BEAKER) (test rdox=158) 30.0 % 40.0-50.0 BLOOD GAS, [id number] 17:57:00 Test Item Value Reference Range Comments PH ARTERIAL (BEAKER) (test gjec=005) 7.37 7.35-7.45 PCO2 ARTERIAL (BEAKER) (test fcrz=891) 41 mmHg 35-45 PO2 ARTERIAL (BEAKER) (test nnhj=434) 336 mmHg 80-90 O2 SATURATION ARTERIAL (BEAKER) (test nwcc=446) 99.7 % 96.0-97.0 HCO3 ARTERIAL (BEAKER) (test dqil=960) 26 mmol/L 21-29 BASE EXCESS ARTERIAL (BEAKER) (test qlmi=105) -2.3 mmol/L -2.0-3.0 PATIENT TEMPERATURE (BEAKER) (test adni=5671) 28.5 C FIO2 (BEAKER) (test yvaj=5537) 65.0 % GLUCOSE-STAT [id number] 17:57:00 Test Item Value Reference Range Comments GLUCOSE RANDOM (BEAKER) (test ptuc=819) 198 mg/dL 70-110 HGB/HCT (H&H) - STAT [id number] 17:57:00 Test Item Value Reference Range Comments HEMOGLOBIN (BEAKER) (test rgss=527) 10.3 g/dL 13.0-16.8 HEMATOCRIT (BEAKER) (test jswx=774) 30.0 % 40.0-50.0 SODIUM NA-STAT [id number] 17:56:00 Test Item Value Reference Range Comments SODIUM (BEAKER) (test dsgi=583) 138 meq/L 135-148 POTASSIUM-STAT [id number] 17:56:00 Test Item Value Reference Range Comments POTASSIUM (BEAKER) (test aubv=768) 4.7 meq/L 3.6-5.5 BLOOD GAS, [id number] 17:28:00 Test Item Value Reference Range Comments PH ARTERIAL (BEAKER) (test fzhq=968) 7.37 7.35-7.45 PCO2 ARTERIAL (BEAKER) (test whke=663) 40 mmHg 35-45 PO2 ARTERIAL (BEAKER) (test amdf=058) 337 mmHg 80-90 O2 SATURATION ARTERIAL (BEAKER) (test glbn=982) 99.7 % 96.0-97.0 HCO3 ARTERIAL (BEAKER) (test dodb=516) 25 mmol/L 21-29 BASE EXCESS ARTERIAL (BEAKER) (test ftsn=475) -2.5 mmol/L -2.0-3.0 PATIENT TEMPERATURE (BEAKER) (test gymc=5244) 28.2 C FIO2 (BEAKER) (test pztp=0509) 65.0 % GLUCOSE-STAT [id number] 17:28:00 Test Item Value Reference Range Comments GLUCOSE RANDOM (BEAKER) (test bnag=640) 223 mg/dL 70-110 HGB/HCT (H&H) - STAT [id number] 17:28:00 Test Item Value Reference Range Comments HEMOGLOBIN (BEAKER) (test pacf=274) 10.1 g/dL 13.0-16.8 HEMATOCRIT (BEAKER) (test fmeb=297) 30.0 % 40.0-50.0 SODIUM NA-STAT [id number] 17:27:00 Test Item Value Reference Range Comments SODIUM (BEAKER) (test jlqw=197) 140 meq/L 135-148 POTASSIUM-STAT [id number] 17:27:00 Test Item Value Reference Range Comments POTASSIUM (BEAKER) (test ulix=797) 4.8 meq/L 3.6-5.5 THROMBOELASTOGRAPH (TEG)2018-01-10 17:02:00 Test Item Value Reference Range Comments TEG ACTIVATED CLOTTING TIME (BEAKER) minutes 4.0-7.0 No clot detected. (test dyhr=3456) TEG FIBRINOGEN ACTIVITY (BEAKER) (test degrees 61.0-73.0 No clot detected. rhyf=0195) TEG PLT. AGGREGATION (BEAKER) (test MM 55.0-65.0 No clot detected. utdm=5800) TEG FIBRINOLYSIS (BEAKER) (test % 0.0-5.0 No clot detected. ecra=8819) TGH ACTIVATED CLOTTING TIME (BEAKER) 8.8 minutes 4.0-7.0 (test ciak=8716) TGH FIBRINOGEN ACTIVITY (BEAKER) (test 59.5 degrees 61.0-73.0 xtcv=5366) T[facility] PLT. AGGREGATION (BEAKER) (test 54.0 MM 55.0-65.0 pwka=8328) TGH FIBRINOLYSIS (BEAKER) (test 0.0 % 0.0-5.0 wnbd=2843) HGB/HCT (H&H) - STAT [id number] 17:01:00 Test Item Value Reference Range Comments HEMOGLOBIN (BEAKER) (test ivkl=253) 10.1 g/dL 13.0-16.8 HEMATOCRIT (BEAKER) (test oery=766) 30.0 % 40.0-50.0 BLOOD GAS, [id number] 17:00:00 Test Item Value Reference Range Comments PH ARTERIAL (BEAKER) (test guqx=439) 7.37 7.35-7.45 PCO2 ARTERIAL (BEAKER) (test ossr=623) 39 mmHg 35-45 PO2 ARTERIAL (BEAKER) (test wtdo=321) 310 mmHg 80-90 O2 SATURATION ARTERIAL (BEAKER) (test zlvg=531) 99.7 % 96.0-97.0 HCO3 ARTERIAL (BEAKER) (test vmms=921) 25 mmol/L 21-29 BASE EXCESS ARTERIAL (BEAKER) (test wfej=431) -2.9 mmol/L -2.0-3.0 PATIENT TEMPERATURE (BEAKER) (test jjzg=5200) 28.5 C FIO2 (BEAKER) (test bomf=8852) 65.0 % GLUCOSE-STAT [id number] 17:00:00 Test Item Value Reference Range Comments GLUCOSE RANDOM (BEAKER) (test vglk=376) 243 mg/dL 70-110 SODIUM NA-STAT [id number] 16:59:00 Test Item Value Reference Range Comments SODIUM (BEAKER) (test yhtg=719) 139 meq/L 135-148 POTASSIUM-STAT [id number] 16:59:00 Test Item Value Reference Range Comments POTASSIUM (BEAKER) (test jbny=286) 4.6 meq/L 3.6-5.5 [id number] 16:47:00 Test Item Value Reference Range Comments PARTIAL THROMBOPLASTIN TIME (BEAKER) (test > seconds 22.5-36.0 spnf=861) BLOOD GAS, [id number] 16:18:00 Test Item Value Reference Range Comments PH ARTERIAL (BEAKER) (test cmzg=591) 7.50 7.35-7.45 PCO2 ARTERIAL (BEAKER) (test ennp=334) 30 mmHg 35-45 PO2 ARTERIAL (BEAKER) (test cvld=963) 306 mmHg 80-90 O2 SATURATION ARTERIAL (BEAKER) (test rqcp=379) 99.8 % 96.0-97.0 HCO3 ARTERIAL (BEAKER) (test qnhf=873) 25 mmol/L 21-29 BASE EXCESS ARTERIAL (BEAKER) (test fozg=998) 0.0 mmol/L -2.0-3.0 PATIENT TEMPERATURE (BEAKER) (test zmya=5004) 27.9 C FIO2 (BEAKER) (test ugyt=4516) 65.0 % GLUCOSE-STAT [id number] 16:18:00 Test Item Value Reference Range Comments GLUCOSE RANDOM (BEAKER) (test gvjg=109) 279 mg/dL 70-110 HGB/HCT (H&H) - STAT [id number] 16:18:00 Test Item Value Reference Range Comments HEMOGLOBIN (BEAKER) (test vxrw=005) 7.0 g/dL 13.0-16.8 HEMATOCRIT (BEAKER) (test plzm=048) 21.0 % 40.0-50.0 SODIUM NA-STAT [id number] 16:17:00 Test Item Value Reference Range Comments SODIUM (BEAKER) (test cnxn=160) 137 meq/L 135-148 POTASSIUM-STAT [id number] 16:17:00 Test Item Value Reference Range Comments POTASSIUM (BEAKER) (test xboh=128) 4.6 meq/L 3.6-5.5 [id number] 16:15:00 Test Item Value Reference Range Comments FIBRINOGEN LEVEL (BEAKER) (test zaky=405) 255 mg/dl 225-434 PROTHROMBIN [id number] 16:14:00 Test Item Value Reference Range Comments PROTIME (BEAKER) (test xgol=472) 20.2 seconds 11.7-14.7 INR (BEAKER) (test mnxz=970) 1.7 <=5.9 RECOMMENDED COUMADIN/WARFARIN INR THERAPY RANGESSTANDARD DOSE: 2.0 - 3.0 Includes: PROPHYLAXIS forvenous thrombosis, systemic embolization; TREATMENT for venous thrombosis and/or pulmonary embolus.HIGH RISK: Target INR is 2.5-3.5 for patients with mechanical heart valves.PLATELET [id number] 16:02:00 Test Item Value Reference Range Comments PLATELET COUNT (BEAKER) (test pjhx=077) 57 K/CU MM 150-450 CALCIUM, [id number] 15:51:00 Test Item Value Reference Range Comments CALCIUM IONIZED (BEAKER) (test towu=846) 0.82 mmol/L 1.12-1.27 PH, BLOOD (BEAKER) (test jkir=5963) 7.45 BLOOD GAS, [id number] 15:51:00 Test Item Value Reference Range Comments PH ARTERIAL (BEAKER) (test qllc=263) 7.45 7.35-7.45 PCO2 ARTERIAL (BEAKER) (test ozzn=290) 40 mmHg 35-45 PO2 ARTERIAL (BEAKER) (test lqxh=602) 336 mmHg 80-90 O2 SATURATION ARTERIAL (BEAKER) (test ueid=384) 99.8 % 96.0-97.0 HCO3 ARTERIAL (BEAKER) (test sqhm=604) 28 mmol/L 21-29 BASE EXCESS ARTERIAL (BEAKER) (test npwe=602) 3.1 mmol/L -2.0-3.0 PATIENT TEMPERATURE (BEAKER) (test oswr=5783) 35.6 C FIO2 (BEAKER) (test bcue=0340) 100.0 % GLUCOSE-STAT [id number] 15:51:00 Test Item Value Reference Range Comments GLUCOSE RANDOM (BEAKER) (test rgyi=363) 190 mg/dL 70-110 HGB/HCT (H&H) - STAT [id number] 15:51:00 Test Item Value Reference Range Comments HEMOGLOBIN (BEAKER) (test jice=384) 7.6 g/dL 13.0-16.8 HEMATOCRIT (BEAKER) (test gfai=456) 22.0 % 40.0-50.0 POTASSIUM-STAT [id number] 15:51:00 Test Item Value Reference Range Comments POTASSIUM (BEAKER) (test zquy=053) 5.6 meq/L 3.6-5.5 SODIUM NA-STAT [id number] 15:50:00 Test Item Value Reference Range Comments SODIUM (BEAKER) (test jmbw=855) 139 meq/L 135-148 BLOOD GAS, [id number] 15:43:00 Test Item Value Reference Range Comments PH ARTERIAL (BEAKER) (test pfai=701) 7.45 7.35-7.45 PCO2 ARTERIAL (BEAKER) (test bagy=282) 39 mmHg 35-45 PO2 ARTERIAL (BEAKER) (test nuip=691) 315 mmHg 80-90 O2 SATURATION ARTERIAL (BEAKER) (test ufaf=112) 99.7 % 96.0-97.0 HCO3 ARTERIAL (BEAKER) (test gwbl=270) 27 mmol/L 21-29 BASE EXCESS ARTERIAL (BEAKER) (test zbjv=689) 1.9 mmol/L -2.0-3.0 PATIENT TEMPERATURE (BEAKER) (test qial=8639) 34.1 C FIO2 (BEAKER) (test egxe=0463) 75.0 % GLUCOSE-STAT [id number] 15:43:00 Test Item Value Reference Range Comments GLUCOSE RANDOM (BEAKER) (test xujt=158) 189 mg/dL 70-110 HGB/HCT (H&H) - STAT [id number] 15:43:00 Test Item Value Reference Range Comments HEMOGLOBIN (BEAKER) (test isnn=138) 8.0 g/dL 13.0-16.8 HEMATOCRIT (BEAKER) (test qrjw=656) 24.0 % 40.0-50.0 POTASSIUM-STAT [id number] 15:43:00 Test Item Value Reference Range Comments POTASSIUM (BEAKER) (test sloh=134) 5.7 meq/L 3.6-5.5 SODIUM NA-STAT [id number] 15:42:00 Test Item Value Reference Range Comments SODIUM (BEAKER) (test dnzr=585) 136 meq/L 135-148 SODIUM NA-STAT [id number] 15:06:00 Test Item Value Reference Range Comments SODIUM (BEAKER) (test mhws=190) 139 meq/L 135-148 BLOOD GAS, [id number] 15:06:00 Test Item Value Reference Range Comments PH ARTERIAL (BEAKER) (test ouom=850) 7.45 7.35-7.45 PCO2 ARTERIAL (BEAKER) (test amvu=501) 40 mmHg 35-45 PO2 ARTERIAL (BEAKER) (test mipl=980) 293 mmHg 80-90 O2 SATURATION ARTERIAL (BEAKER) (test czgo=269) 99.7 % 96.0-97.0 HCO3 ARTERIAL (BEAKER) (test sylj=798) 31 mmol/L 21-29 BASE EXCESS ARTERIAL (BEAKER) (test hwrx=302) 3.6 mmol/L -2.0-3.0 PATIENT TEMPERATURE (BEAKER) (test biki=4953) 26.7 C FIO2 (BEAKER) (test fshv=3381) 60.0 % POTASSIUM-STAT [id number] 15:06:00 Test Item Value Reference Range Comments POTASSIUM (BEAKER) (test xqvf=380) 5.8 meq/L 3.6-5.5 GLUCOSE-STAT [id number] 15:06:00 Test Item Value Reference Range Comments GLUCOSE RANDOM (BEAKER) (test eqzf=760) 192 mg/dL 70-110 HGB/HCT (H&H) - STAT [id number] 15:06:00 Test Item Value Reference Range Comments HEMOGLOBIN (BEAKER) (test txem=948) 8.2 g/dL 13.0-16.8 HEMATOCRIT (BEAKER) (test qtpx=345) 24.0 % 40.0-50.0 POTASSIUM-STAT [id number] 14:41:00 Test Item Value Reference Range Comments POTASSIUM (BEAKER) (test smcs=377) 5.2 meq/L 3.6-5.5 BLOOD GAS, [id number] 14:41:00 Test Item Value Reference Range Comments PH ARTERIAL (BEAKER) (test ezpd=021) 7.43 7.35-7.45 PCO2 ARTERIAL (BEAKER) (test jcyo=282) 40 mmHg 35-45 PO2 ARTERIAL (BEAKER) (test avzm=990) 321 mmHg 80-90 O2 SATURATION ARTERIAL (BEAKER) (test tdna=011) 99.7 % 96.0-97.0 HCO3 ARTERIAL (BEAKER) (test gxsj=178) 29 mmol/L 21-29 BASE EXCESS ARTERIAL (BEAKER) (test wump=143) 2.1 mmol/L -2.0-3.0 PATIENT TEMPERATURE (BEAKER) (test qcnb=0247) 26.6 C FIO2 (BEAKER) (test qyfi=1856) 60.0 % SODIUM NA-STAT [id number] 14:41:00 Test Item Value Reference Range Comments SODIUM (BEAKER) (test bkta=087) 134 meq/L 135-148 GLUCOSE-STAT [id number] 14:41:00 Test Item Value Reference Range Comments GLUCOSE RANDOM (BEAKER) (test trln=174) 195 mg/dL 70-110 HGB/HCT (H&H) - STAT [id number] 14:41:00 Test Item Value Reference Range Comments HEMOGLOBIN (BEAKER) (test wdou=549) 8.2 g/dL 13.0-16.8 HEMATOCRIT (BEAKER) (test wlba=495) 24.0 % 40.0-50.0 BLOOD GAS, [id number] 14:10:00 Test Item Value Reference Range Comments PH ARTERIAL (BEAKER) (test qjox=103) 7.41 7.35-7.45 PCO2 ARTERIAL (BEAKER) (test ynhg=879) 41 mmHg 35-45 PO2 ARTERIAL (BEAKER) (test olhb=369) 313 mmHg 80-90 O2 SATURATION ARTERIAL (BEAKER) (test ncjo=015) 99.7 % 96.0-97.0 HCO3 ARTERIAL (BEAKER) (test jvad=953) 29 mmol/L 21-29 BASE EXCESS ARTERIAL (BEAKER) (test iqtm=488) 1.4 mmol/L -2.0-3.0 PATIENT TEMPERATURE (BEAKER) (test iekv=6236) 27.0 C FIO2 (BEAKER) (test hgls=4970) 60.0 % GLUCOSE-STAT [id number] 14:10:00 Test Item Value Reference Range Comments GLUCOSE RANDOM (BEAKER) (test ivuo=174) 177 mg/dL 70-110 HGB/HCT (H&H) - STAT [id number] 14:10:00 Test Item Value Reference Range Comments HEMOGLOBIN (BEAKER) (test lvdt=739) 8.5 g/dL 13.0-16.8 HEMATOCRIT (BEAKER) (test qcfj=995) 25.0 % 40.0-50.0 SODIUM NA-STAT [id number] 14:09:00 Test Item Value Reference Range Comments SODIUM (BEAKER) (test oapm=977) 136 meq/L 135-148 POTASSIUM-STAT [id number] 14:09:00 Test Item Value Reference Range Comments POTASSIUM (BEAKER) (test xpnw=883) 5.0 meq/L 3.6-5.5 SODIUM NA-STAT [id number] 13:39:00 Test Item Value Reference Range Comments SODIUM (BEAKER) (test pzxb=284) 136 meq/L 135-148 POTASSIUM-STAT [id number] 13:39:00 Test Item Value Reference Range Comments POTASSIUM (BEAKER) (test kfis=944) 5.0 meq/L 3.6-5.5 BLOOD GAS, [id number] 13:39:00 Test Item Value Reference Range Comments PH ARTERIAL (BEAKER) (test aszk=193) 7.46 7.35-7.45 PCO2 ARTERIAL (BEAKER) (test trxx=596) 37 mmHg 35-45 PO2 ARTERIAL (BEAKER) (test xfvk=044) 246 mmHg 80-90 O2 SATURATION ARTERIAL (BEAKER) (test cfxd=820) 99.6 % 96.0-97.0 HCO3 ARTERIAL (BEAKER) (test ogmh=723) 29 mmol/L 21-29 BASE EXCESS ARTERIAL (BEAKER) (test svrd=644) 1.7 mmol/L -2.0-3.0 PATIENT TEMPERATURE (BEAKER) (test ljkx=6762) 26.5 C FIO2 (BEAKER) (test hggf=5277) 60.0 % GLUCOSE-STAT [id number] 13:39:00 Test Item Value Reference Range Comments GLUCOSE RANDOM (BEAKER) (test sbux=237) 179 mg/dL 70-110 HGB/HCT (H&H) - STAT [id number] 13:39:00 Test Item Value Reference Range Comments HEMOGLOBIN (BEAKER) (test hrly=366) 8.1 g/dL 13.0-16.8 HEMATOCRIT (BEAKER) (test pqfk=922) 24.0 % 40.0-50.0 CALCIUM, [id number] 12:31:00 Test Item Value Reference Range Comments CALCIUM IONIZED (BEAKER) (test kuhr=739) 1.09 mmol/L 1.12-1.27 PH, BLOOD (BEAKER) (test iamm=7287) 7.45 GLUCOSE-STAT [id number] 12:30:00 Test Item Value Reference Range Comments GLUCOSE RANDOM (BEAKER) (test necz=064) 93 mg/dL 70-110 SODIUM NA-STAT [id number] 12:30:00 Test Item Value Reference Range Comments SODIUM (BEAKER) (test jwrj=756) 140 meq/L 135-148 POTASSIUM-STAT [id number] 12:30:00 Test Item Value Reference Range Comments POTASSIUM (BEAKER) (test edad=189) 3.9 meq/L 3.6-5.5 BLOOD GAS, [id number] 12:30:00 Test Item Value Reference Range Comments PH ARTERIAL (BEAKER) (test jbwc=547) 7.48 7.35-7.45 PCO2 ARTERIAL (BEAKER) (test orql=848) 39 mmHg 35-45 PO2 ARTERIAL (BEAKER) (test ylkq=201) 128 mmHg 80-90 O2 SATURATION ARTERIAL (BEAKER) (test earn=016) 98.9 % 96.0-97.0 HCO3 ARTERIAL (BEAKER) (test gvxe=167) 29 mmol/L 21-29 BASE EXCESS ARTERIAL (BEAKER) (test qmsk=796) 4.1 mmol/L -2.0-3.0 PATIENT TEMPERATURE (BEAKER) (test hkkb=9771) 35.0 C FIO2 (BEAKER) (test dfvi=3160) 100.0 % HGB/HCT (H&H) - STAT [id number] 12:30:00 Test Item Value Reference Range Comments HEMOGLOBIN (BEAKER) (test imvj=013) 9.3 g/dL 13.0-16.8 HEMATOCRIT (BEAKER) (test inis=268) 27.0 % 40.0-50.0 HEMOGLOBIN [id number] 10:02:00 Test Item Value Reference Range Comments HEMOGLOBIN A1C (BEAKER) (test rteb=681) 4.4 % 4.3-6.1 POCT-GLUCOSE [id number] 09:52:00 Test Item Value Reference Range Comments POC-GLUCOSE METER (BEAKER) 115 mg/dL 70-110 TESTED AT [facility] [address] (test ymqe=8649) [facility] [address] PROTHROMBIN [id number] 02:41:00 Test Item Value Reference Range Comments PROTIME (BEAKER) (test jpgu=574) 14.9 seconds 11.7-14.7 INR (BEAKER) (test qqyu=092) 1.2 <=5.9 RECOMMENDED COUMADIN/WARFARIN INR THERAPY RANGESSTANDARD DOSE: 2.0 - 3.0 Includes: PROPHYLAXIS forvenous thrombosis, systemic embolization; TREATMENT for venous thrombosis and/or pulmonary embolus.HIGH RISK: Target INR is 2.5-3.5 for patients with mechanical heart valves.BASIC METABOLIC [id number] 00:29: 00 Test Item Value Reference Range Comments SODIUM (BEAKER) (test 137 meq/L 136-145 djdv=010) POTASSIUM (BEAKER) (test 4.4 meq/L 3.5-5.1 Specimen slightly fcyx=165) hemolyzed CHLORIDE (BEAKER) (test 100 meq/L 98-107 away=463) CO2 (BEAKER) (test 25 meq/L 22-29 tllh=545) BLOOD UREA NITROGEN 32 mg/dL 7-21 (BEAKER) (test fzaa=716) CREATININE (BEAKER) (test 5.79 mg/dL 0.57-1.25 Specimen slightly ogrl=762) hemolyzed GLUCOSE RANDOM (BEAKER) 126 mg/dL 70-105 (test uuzr=704) CALCIUM (BEAKER) (test 9.8 mg/dL 8.4-10.2 ibkp=960) EGFR (BEAKER) (test 12 mL/min/1.73 sq m ESTIMATED GFR IS NOT obyl=3954) ACCURATE CREATININE CLEARANCE IN PREDICTING GLOMERULAR FILTRATION RATE. ESTIMATED GFR IS NOT APPLICABLE FOR DIALYSIS PATIENTS. [id number] 00:22:00 Test Item Value Reference Range Comments MAGNESIUM (BEAKER) (test 2.5 mg/dL 1.6-2.6 Specimen slightly hemolyzed zscr=220) [id number] 00:14:00 Test Item Value Reference Range Comments PARTIAL THROMBOPLASTIN TIME (BEAKER) (test 38.6 seconds 22.5-36.0 orme=737) CBC W/PLT COUNT & AUTO [id number] 00:07:00 Test Item Value Reference Range Comments WHITE BLOOD CELL COUNT (BEAKER) (test xcws=837) 5.2 K/ L 3.5-10.5 RED BLOOD CELL COUNT (BEAKER) (test eoyd=282) 3.16 M/ L 4.63-6.08 HEMOGLOBIN (BEAKER) (test otww=298) 10.1 GM/DL 13.7-17.5 HEMATOCRIT (BEAKER) (test jchm=930) 31.4 % 40.1-51.0 MEAN CORPUSCULAR VOLUME (BEAKER) (test qrue=286) 99.4 fL 79.0-92.2 MEAN CORPUSCULAR HEMOGLOBIN (BEAKER) (test 32.0 pg 25.7-32.2 zacg=864) MEAN CORPUSCULAR HEMOGLOBIN CONC (BEAKER) (test 32.2 GM/DL 32.3-36.5 jtzf=735) RED CELL DISTRIBUTION WIDTH (BEAKER) (test 16.7 % 11.6-14.4 xplz=807) PLATELET COUNT (BEAKER) (test sxlv=504) 112 K/CU MM 150-450 MEAN PLATELET VOLUME (BEAKER) (test zrke=282) 9.6 fL 9.4-12.4 NUCLEATED RED BLOOD CELLS (BEAKER) (test 0 /100 WBC 0-0 xzur=985) NEUTROPHILS RELATIVE PERCENT (BEAKER) (test 69 % bvyj=041) LYMPHOCYTES RELATIVE PERCENT (BEAKER) (test 19 % emdw=924) MONOCYTES RELATIVE PERCENT (BEAKER) (test 10 % zmxo=377) EOSINOPHILS RELATIVE PERCENT (BEAKER) (test 1 % bleq=555) BASOPHILS RELATIVE PERCENT (BEAKER) (test 1 % vhwl=653) NEUTROPHILS ABSOLUTE COUNT (BEAKER) (test 3.58 K/ L 1.78-5.38 uyps=841) LYMPHOCYTES ABSOLUTE COUNT (BEAKER) (test 0.98 K/ L 1.32-3.57 qaxm=327) MONOCYTES ABSOLUTE COUNT (BEAKER) (test 0.49 K/ L 0.30-0.82 cgju=855) EOSINOPHILS ABSOLUTE COUNT (BEAKER) (test 0.07 K/ L 0.04-0.54 tmww=259) BASOPHILS ABSOLUTE COUNT (BEAKER) (test 0.04 K/ L 0.01-0.08 isso=116) IMMATURE GRANULOCYTES-RELATIVE PERCENT (BEAKER) 0 % 0-1 (test mjut=5725) [id number] 17:03:00 Test Item Value Reference Range Comments THYROID STIMULATING HORMONE (BEAKER) (test 1.30 uIU/mL 0.35-4.94 igah=026) HEPATIC FUNCTION [id number] 16:43:00 Test Item Value Reference Range Comments TOTAL PROTEIN (BEAKER) (test pigc=191) 8.0 gm/dL 6.0-8.3 ALBUMIN (BEAKER) (test xbqo=7174) 3.9 g/dL 3.5-5.0 BILIRUBIN TOTAL (BEAKER) (test xacc=916) 1.3 mg/dL 0.2-1.2 BILIRUBIN DIRECT (BEAKER) (test qins=518) 0.7 mg/dL 0.1-0.5 ALKALINE PHOSPHATASE (BEAKER) (test groc=754) 74 U/L 40-150 AST (SGOT) (BEAKER) (test gyff=615) 60 U/L 5-34 ALT (SGPT) (BEAKER) (test nwlx=610) 69 U/L 6-55 BASIC METABOLIC [id number] 15:47:00 Test Item Value Reference Range Comments SODIUM (BEAKER) (test 135 meq/L 136-145 hfhc=818) POTASSIUM (BEAKER) (test 4.5 meq/L 3.5-5.1 uydw=640) CHLORIDE (BEAKER) (test 94 meq/L 98-107 qoic=778) CO2 (BEAKER) (test 23 meq/L 22-29 oveg=524) BLOOD UREA NITROGEN 78 mg/dL 7-21 (BEAKER) (test ohzt=024) CREATININE (BEAKER) (test 10.41 mg/dL 0.57-1.25 dvbk=152) GLUCOSE RANDOM (BEAKER) 111 mg/dL 70-105 (test drcv=088) CALCIUM (BEAKER) (test 9.9 mg/dL 8.4-10.2 oboq=532) EGFR (BEAKER) (test 6 mL/min/1.73 sq m ESTIMATED GFR IS NOT ydqw=4521) ACCURATE CREATININE CLEARANCE IN PREDICTING GLOMERULAR FILTRATION RATE. ESTIMATED GFR IS NOT APPLICABLE FOR DIALYSIS PATIENTS. [id number] 14:57:00 Test Item Value Reference Range Comments PARTIAL THROMBOPLASTIN TIME (BEAKER) (test 82.9 seconds 22.5-36.0 njya=654) CBC W/PLT COUNT & AUTO [id number] 14:48:00 Test Item Value Reference Range Comments WHITE BLOOD CELL COUNT (BEAKER) (test brqu=750) 6.6 K/ L 3.5-10.5 RED BLOOD CELL COUNT (BEAKER) (test udqx=100) 3.02 M/ L 4.63-6.08 HEMOGLOBIN (BEAKER) (test xirc=269) 9.9 GM/DL 13.7-17.5 HEMATOCRIT (BEAKER) (test okwu=272) 29.3 % 40.1-51.0 MEAN CORPUSCULAR VOLUME (BEAKER) (test mfzj=551) 97.0 fL 79.0-92.2 MEAN CORPUSCULAR HEMOGLOBIN (BEAKER) (test 32.8 pg 25.7-32.2 owss=984) MEAN CORPUSCULAR HEMOGLOBIN CONC (BEAKER) (test 33.8 GM/DL 32.3-36.5 wwkd=792) RED CELL DISTRIBUTION WIDTH (BEAKER) (test 16.7 % 11.6-14.4 fpsn=922) PLATELET COUNT (BEAKER) (test igot=611) 116 K/CU MM 150-450 MEAN PLATELET VOLUME (BEAKER) (test jafw=091) 9.9 fL 9.4-12.4 NUCLEATED RED BLOOD CELLS (BEAKER) (test 0 /100 WBC 0-0 ttyh=282) NEUTROPHILS RELATIVE PERCENT (BEAKER) (test 68 % heni=124) LYMPHOCYTES RELATIVE PERCENT (BEAKER) (test 20 % mvbf=995) MONOCYTES RELATIVE PERCENT (BEAKER) (test 10 % xizj=867) EOSINOPHILS RELATIVE PERCENT (BEAKER) (test 1 % tenw=209) BASOPHILS RELATIVE PERCENT (BEAKER) (test 0 % hsqb=935) NEUTROPHILS ABSOLUTE COUNT (BEAKER) (test 4.44 K/ L 1.78-5.38 hsda=737) LYMPHOCYTES ABSOLUTE COUNT (BEAKER) (test 1.33 K/ L 1.32-3.57 irqh=423) MONOCYTES ABSOLUTE COUNT (BEAKER) (test 0.66 K/ L 0.30-0.82 hlgc=460) EOSINOPHILS ABSOLUTE COUNT (BEAKER) (test 0.06 K/ L 0.04-0.54 tubr=501) BASOPHILS ABSOLUTE COUNT (BEAKER) (test 0.02 K/ L 0.01-0.08 pyli=368) IMMATURE GRANULOCYTES-RELATIVE PERCENT (BEAKER) 1 % 0-1 (test aqem=3768) POCT-GLUCOSE [id number] 11:13:00 Test Item Value Reference Range Comments POC-GLUCOSE METER (BEAKER) 207 mg/dL 70-110 TESTED AT [address] (test kcdp=8284) [facility] [address] POCT-GLUCOSE [id number] 08:08:00 Test Item Value Reference Range Comments POC-GLUCOSE METER (BEAKER) 124 mg/dL 70-110 TESTED AT [address] (test oobp=7389) [facility] [address] [id number] 06:51:00 Test Item Value Reference Range Comments PARTIAL THROMBOPLASTIN TIME (BEAKER) (test 54.6 seconds 22.5-36.0 dtpx=521) HEPATITIS B SURFACE [id number] 00:28:00 Test Item Value Reference Range Comments HEPATITIS B SURFACE ANTIGEN (2) (BEAKER) (test Nonreactive Nonreactive nshz=6231) [id number] 00:06:00 Test Item Value Reference Range Comments PHOSPHORUS (BEAKER) (test tzgc=812) 3.2 mg/dL 2.3-4.7 [id number] 00:03:00 Test Item Value Reference Range Comments PARTIAL THROMBOPLASTIN TIME (BEAKER) (test 36.0 seconds 22.5-36.0 kdrv=153) CBC W/PLT COUNT & AUTO [id number] 23:45:00 Test Item Value Reference Range Comments WHITE BLOOD CELL COUNT (BEAKER) (test umqw=585) 5.8 K/ L 3.5-10.5 RED BLOOD CELL COUNT (BEAKER) (test abqm=416) 2.99 M/ L 4.63-6.08 HEMOGLOBIN (BEAKER) (test rikx=058) 9.7 GM/DL 13.7-17.5 HEMATOCRIT (BEAKER) (test ptvj=594) 29.3 % 40.1-51.0 MEAN CORPUSCULAR VOLUME (BEAKER) (test mefm=365) 98.0 fL 79.0-92.2 MEAN CORPUSCULAR HEMOGLOBIN (BEAKER) (test 32.4 pg 25.7-32.2 plfq=337) MEAN CORPUSCULAR HEMOGLOBIN CONC (BEAKER) (test 33.1 GM/DL 32.3-36.5 wzyg=730) RED CELL DISTRIBUTION WIDTH (BEAKER) (test 16.5 % 11.6-14.4 ytnu=394) PLATELET COUNT (BEAKER) (test ytoz=294) 103 K/CU MM 150-450 MEAN PLATELET VOLUME (BEAKER) (test qivl=758) 9.5 fL 9.4-12.4 NUCLEATED RED BLOOD CELLS (BEAKER) (test 0 /100 WBC 0-0 weru=621) NEUTROPHILS RELATIVE PERCENT (BEAKER) (test 66 % dbdv=168) LYMPHOCYTES RELATIVE PERCENT (BEAKER) (test 22 % alco=404) MONOCYTES RELATIVE PERCENT (BEAKER) (test 10 % qxpi=429) EOSINOPHILS RELATIVE PERCENT (BEAKER) (test 2 % riof=292) BASOPHILS RELATIVE PERCENT (BEAKER) (test 1 % grve=756) NEUTROPHILS ABSOLUTE COUNT (BEAKER) (test 3.79 K/ L 1.78-5.38 sogl=404) LYMPHOCYTES ABSOLUTE COUNT (BEAKER) (test 1.26 K/ L 1.32-3.57 biaf=579) MONOCYTES ABSOLUTE COUNT (BEAKER) (test 0.59 K/ L 0.30-0.82 krxn=700) EOSINOPHILS ABSOLUTE COUNT (BEAKER) (test 0.10 K/ L 0.04-0.54 jlxg=039) BASOPHILS ABSOLUTE COUNT (BEAKER) (test 0.03 K/ L 0.01-0.08 aolv=470) IMMATURE GRANULOCYTES-RELATIVE PERCENT (BEAKER) 0 % 0-1 (test siuc=1863) POCT-GLUCOSE [id number] 17:39:00 Test Item Value Reference Range Comments POC-GLUCOSE METER (BEAKER) 116 mg/dL 70-110 TESTED AT [address] (test oyjr=2916) [facility] [address] [id number] 15:35:00 Test Item Value Reference Range Comments THYROID STIMULATING HORMONE (BEAKER) (test 1.39 uIU/mL 0.35-4.94 kmna=934) [id number] 15:06:00 Test Item Value Reference Range Comments PARTIAL THROMBOPLASTIN TIME (BEAKER) (test 31.0 seconds 22.5-36.0 krfc=449) Prior to initiating heparinPROTHROMBIN TIME/[id number] 15:05:00 Test Item Value Reference Range Comments PROTIME (BEAKER) (test ydfu=806) 14.4 seconds 11.7-14.7 INR (BEAKER) (test sund=845) 1.1 <=5.9 RECOMMENDED COUMADIN/WARFARIN INR THERAPY RANGESSTANDARD DOSE: 2.0 - 3.0 Includes: PROPHYLAXIS forvenous thrombosis, systemic embolization; TREATMENT for venous thrombosis and/or pulmonary embolus.HIGH RISK: Target INR is 2.5-3.5 for patients with mechanical heart valves.PLATELET [id number] 14:52:00 Test Item Value Reference Range Comments PLATELET COUNT (BEAKER) (test ivsh=432) 109 K/CU MM 150-450 POCT-GLUCOSE [id number] 12:00:00 Test Item Value Reference Range Comments POC-GLUCOSE METER (BEAKER) 186 mg/dL 70-110 TESTED AT [facility] [address] (test veuh=0889) [facility] [address] RAD, CHEST, 1 VIEW, NON [id number] 11:43:00Reason for exam:->SOB, known severe MRShould this be performed at the bedside?->YesFINAL REPORT Chest one view AP 01/08/2018 11:42 AM CLINICAL INDICATION: SOB, known severe MR COMPARISON: 12/02/2017 IMPRESSION: Cardiomediastinal contours are stable. There is mild pulmonary edema. There are trace bilateral pleural effusions. Signed: Yevgeniy Anderson Verified Date/Time: 01/08/2018 11: 43:52 Reading Location: [facility] Radiology Reading Room RAPID [id number] 10 :04:00 Test Item Value Reference Range Comments RAPID CKMB (BEAKER) (test taqw=3986) 1.5 ng/mL 0.0-4.3 RAPID TROPONIN [id number] 10:04:00 Test Item Value Reference Range Comments RAPID TROPONIN I (BEAKER) (test mubj=0152) < ng/mL <0.05 RAD, CHEST, 2 [id number] 10:00:00Reason for exam:->Chest PainFINAL REPORT Chest two views Discussion: Heart size upper limits of normal. Bilateral interstitial edema with small bilateral effusions. No pneumothorax. Bones and soft tissues unremarkable. Signed: Rhea Colindres Verified Date/Time: 12/02/2017 10:00:39 Reading Location:[facility] Radiology Reading Room B-TYPE NATRIURETIC FACTOR (BNP)2017-12-02 09:56:00 Test Item Value Reference Range Comments B-TYPE NATRIURETIC PEPTIDE (BEAKER) (test 1990 pg/mL 0-100 ceho=210) BASIC METABOLIC [id number] 09:52:00 Test Item Value Reference Range Comments SODIUM (BEAKER) (test 141 meq/L 135-148 vfla=150) POTASSIUM (BEAKER) (test 3.9 meq/L 3.6-5.5 mooe=273) CHLORIDE (BEAKER) (test 94 meq/L 98-106 mexm=228) CO2 (BEAKER) (test 28 meq/L 24-32 usqf=970) BLOOD UREA NITROGEN 59 mg/dL 10-26 (BEAKER) (test kuxk=095) CREATININE (BEAKER) (test 8.47 mg/dL 0.50-1.20 fglb=082) GLUCOSE RANDOM (BEAKER) 89 mg/dL 70-110 (test gaoe=940) CALCIUM (BEAKER) (test 9.5 mg/dL 8.5-10.5 xaok=717) EGFR (BEAKER) (test 8 mL/min/1.73 sq m ESTIMATED GFR IS NOT jvfn=8685) ACCURATE CREATININE CLEARANCE IN PREDICTING GLOMERULAR FILTRATION RATE. ESTIMATED GFR IS NOT APPLICABLE FOR DIALYSIS PATIENTS. [id number] 09:51:00 Test Item Value Reference Range Comments MAGNESIUM (BEAKER) (test nxjm=744) 1.7 mg/dL 1.5-3.0 CBC W/PLT COUNT & AUTO [id number] 09:50:00 Test Item Value Reference Range Comments WHITE BLOOD CELL COUNT (BEAKER) (test rlsy=142) 5.7 10e3/ L 4.0-10.0 RED BLOOD CELL COUNT (BEAKER) (test tmzm=188) 2.81 10e6/ L 4.20-5.80 HEMOGLOBIN (BEAKER) (test ygru=665) 9.1 g/dL 13.0-16.8 HEMATOCRIT (BEAKER) (test dask=455) 26.7 % 40.0-50.0 MEAN CORPUSCULAR VOLUME (BEAKER) (test 94.8 fL 82.0-98.0 oile=028) MEAN CORPUSCULAR HEMOGLOBIN (BEAKER) (test 32.4 pg 27.0-33.0 ecrd=811) MEAN CORPUSCULAR HEMOGLOBIN CONC (BEAKER) (test 34.1 g/dL 32.0-36.0 zljm=783) RED CELL DISTRIBUTION WIDTH (BEAKER) (test 12.6 % 10.3-14.2 mwum=945) PLATELET COUNT (BEAKER) (test hodo=979) 120 10e3/ L 150-430 MEAN PLATELET VOLUME (BEAKER) (test xmcn=895) 7.6 fL 6.5-10.5 NEUTROPHILS RELATIVE PERCENT (BEAKER) (test 72 % slur=449) LYMPHOCYTES RELATIVE PERCENT (BEAKER) (test 17 % eiqe=568) MONOCYTES RELATIVE PERCENT (BEAKER) (test 9 % aroz=440) EOSINOPHILS RELATIVE PERCENT (BEAKER) (test 2 % nrik=006) BASOPHILS RELATIVE PERCENT (BEAKER) (test 0 % kfgy=910) NEUTROPHILS ABSOLUTE COUNT (BEAKER) (test 4.04 10e3/ L 1.80-8.00 ivur=161) LYMPHOCYTES ABSOLUTE COUNT (BEAKER) (test 0.97 10e3/ L 1.48-4.50 ehgy=128) MONOCYTES ABSOLUTE COUNT (BEAKER) (test 0.53 10e3/ L 0.00-1.30 ugxm=534) EOSINOPHILS ABSOLUTE COUNT (BEAKER) (test 0.10 10e3/ L 0.00-0.50 xizz=074) BASOPHILS ABSOLUTE COUNT (BEAKER) (test 0.02 10e3/ L 0.00-0.20 cjql=874) CD4/CD8 Ratio [id number] 08:04:00 Test Item Value Reference Range Comments Absolute CD 4 [place] (test cgwz=807966) 188 /uL 359-1519 % CD 4 Pos. Lymph. (test tjeh=360958) 37.6 % 30.8-58.5 Abs. CD 8 Suppressor (test kaec=377393) 183 /uL 109-897 % CD 8 Pos. Lymph. (test aznj=074016) 36.6 % 12.0-35.5 CD4/CD8 Ratio (test npto=683305) 1.03 0.92-3.72 WBC (test mejz=682325) 5.0 x10E3/uL 3.4-10.8 RBC (test mxoc=228201) 3.00 x10E6/uL 4.14-5.80 Hemoglobin (test qnfd=516993) 9.6 g/dL 13.0-17.7 Hematocrit (test grjd=339620) 27.6 % 37.5-51.0 MCV (test dcyd=985104) 92 fL 79-97 MCH (test lazz=127222) 32.0 pg 26.6-33.0 MCHC (test nhug=205683) 34.8 g/dL 31.5-35.7 RDW (test wgja=365245) 15.5 % 12.3-15.4 Platelets (test hseb=261477) 113 x10E3/uL 150-379 Neutrophils (test prvr=517962) 84 % Not Estab. Lymphs (test qxro=501299) 9 % Not Estab. Monocytes (test boet=152611) 6 % Not Estab. Eos (test vtha=431981) 1 % Not Estab. Basos (test ntjk=591601) 0 % Not Estab. Neutrophils (Absolute) (test admr=651338) 4.2 x10E3/uL 1.4-7.0 Lymphs (Absolute) (test ncyz=942129) 0.5 x10E3/uL 0.7-3.1 Monocytes(Absolute) (test pfiz=133508) 0.3 x10E3/uL 0.1-0.9 Eos (Absolute) (test ucok=761369) 0.0 x10E3/uL 0.0-0.4 Baso (Absolute) (test kpbo=929028) 0.0 x10E3/uL 0.0-0.2 Immature Granulocytes (test doco=655981) 0 % Not Estab. Immature Grans (Abs) (test zhio=204935) 0.0 x10E3/uL 0.0-0.1 Culture, Blood [id number] 08:42:00Specimen: BloodCollected: 11/19/2017 00 :21 Status: Final Last Updated: 11/24/2017 08:42 Culture Result (Final) ( Final) No Growth After 5 DaysCulture, Blood [id number] 08:42: 00Specimen: BloodCollected: 11/18/2017 20:30 Status: Final Last Updated: 08:42 Culture Result (Final) (Final) No Growth After 5 DaysPOC Glucose, [id number] 11:51:00 Test Item Value Reference Range Comments POC Glucose (test 148 mg/dL 70-115 Notify RN or MDIf you consider code=POCGLUC) your patient critically ill, the [facility] Accu-Chek InformII metershould not be used for Glucose determinations.Draw a venous Glucose and send to the Main Lab for Analysis. CK [id number] 07:42:00 Test Item Value Reference Range Comments CK (test code=CK) na U/L 39-308 CKMB (test code=CKMB) 4.0 ng/mL 0.0-4.9 CKMB% (test code=CKMBP) 0.0 % 0.0-3.4 [id number] 07:39:00 Test Item Value Reference Range Comments NT ProBnp (test code=PBNP) >49073 pg/mL 0-124 Troponin [id number] 07:18:00 Test Item Value Reference Range Comments Troponin T (test code=MADHAV) 0.103 ng/mL 0.000-0.090 Lactate [id number] 07:18:00 Test Item Value Reference Range Comments LDH (test code=LDH) 271 U/L 135-225 POC Glucose, [id number] 06:50:00 Test Item Value Reference Range Comments POC Glucose (test 154 mg/dL 70-115 Notify RN or MDIf you consider code=POCGLUC) your patient critically ill, the [facility] Accu-Chek InformII metershould not be used for Glucose determinations.Draw a venous Glucose and send to the Main Lab for Analysis. CK [id number] 01:08:00 Test Item Value Reference Range Comments CK (test code=CK) na U/L 39-308 CKMB (test code=CKMB) 3.6 ng/mL 0.0-4.9 CKMB% (test code=CKMBP) 0.0 % 0.0-3.4 Troponin [id number] 01:08:00 Test Item Value Reference Range Comments Troponin T (test code=MADHAV) 0.106 ng/mL 0.000-0.090 XR CHEST 1 [id number] 21:02:01CLINICAL INFORMATION: Vascular congestion.Dictation Location: 16Comparison: 11/18/2017 showed perihilar and lower lobe opacities. Technique: Portable AP 195 hoursFINDINGS: Monitoring electrodes overlie the chest wall. Cardiomegaly withincreasing central vascular interstitial prominence with bibasilaropacities and effusions. No interval bone changes.IMPRESSION: Changes could indicate worsening cardiac decompensation orfluid overload.POC Glucose, [id number] 20:15:00 Test Item Value Reference Range Comments POC Glucose (test 139 mg/dL 70-115 If you consider your patient code=POCGLUC) critically ill, the [facility] Accu-Chek InformII metershould not be used for Glucose determinations.Draw a venous Glucose and send to the Main Lab for Analysis. POC Glucose, [id number] 16:52:00 Test Item Value Reference Range Comments POC Glucose (test 123 mg/dL 70-115 If you consider your patient code=POCGLUC) critically ill, the [facility] Accu-Chek InformII metershould not be used for Glucose determinations.Draw a venous Glucose and send to the Main Lab for Analysis. POC Glucose, [id number] 12:04:00 Test Item Value Reference Range Comments POC Glucose (test 140 mg/dL 70-115 If you consider your patient code=POCGLUC) critically ill, the [facility] Accu-Chek InformII metershould not be used for Glucose determinations.Draw a venous Glucose and send to the Main Lab for Analysis. POC Glucose, [id number] 08:01:00 Test Item Value Reference Range Comments POC Glucose (test 126 mg/dL 70-115 If you consider your patient code=POCGLUC) critically ill, the [facility] Accu-Chek InformII metershould not be used for Glucose determinations.Draw a venous Glucose and send to the Main Lab for Analysis. CK [id number] 06:03:00 Test Item Value Reference Range Comments CK (test code=CK) na U/L 39-308 CKMB (test code=CKMB) 2.8 ng/mL 0.0-4.9 CKMB% (test code=CKMBP) 0.0 % 0.0-3.4 Basic Metabolic [id number] 05:51:00 Test Item Value Reference Range Comments [...] race is not provided, and the patient isAfrican-Liberian, multiply by 1.212. If sex is not provided, and thepatient is female, multiply by 0.742. Results for patients <18 years ofage have not been validated by the MDRD study and should be interpretedwith caution.eGFR Result Interpretation:eGFR > or=60 is in the Normal RangeeGFR < 60 may mean kidney diseaseeGFR < 15 may mean kidney failureRanges recommended by the National Kidney Foundation,http://nkdep.nih .gov Magnesium, [id number] 05:51:00 Test Item Value Reference Range Comments Magnesium (test code=MG) 1.9 mg/dL 1.7-2.5 [id number] 05:51:00 Test Item Value Reference Range Comments Phosphorus (test code=PO4) 3.8 mg/dL 2.70-4.50 Afb-Bmo3668-12-20 05:51:00 Test Item Value Reference Range Comments NT ProBnp (test code=PBNP) >65252 pg/mL 0-124 Troponin [id number] 05:51:00 Test Item Value Reference Range Comments Troponin T (test code=MADHAV) 0.126 ng/mL 0.000-0.090 CBC with [id number] 05:34:00 Test Item Value Reference Range Comments [...] Lymph Abs (test code=ALYMPH) 0.4 K/cumm 0.5-4.6 Hyde Abs (test code=AMONO) 0.6 K/cumm 0.0-1.2 Eos Abs (test code=AEOS) 0.13 K/cumm 0.00-0.74 Baso Abs (test code=ABASO) 0.0 K/cumm 0.00-0.21 CK [id number] 18:39:00 Test Item Value Reference Range Comments CK (test code=CK) HIDE U/L 39-308 CKMB (test code=CKMB) 3.2 ng/mL 0.0-4.9 CKMB% (test code=CKMBP) HIDE % 0.0-3.4 Troponin [id number] 18:39:00 Test Item Value Reference Range Comments Troponin T (test code=MADHAV) 0.126 ng/mL 0.000-0.090 Hep B Surface [id number] 18:39:00 Test Item Value Reference Range Comments Hep Bs Ag (test code=HBSAG) Nonreactive Non-Reactive POC Glucose, [id number] 16:47:00 Test Item Value Reference Range Comments POC Glucose (test 143 mg/dL 70-115 If you consider your patient code=POCGLUC) critically ill, the [facility] Accu-Chek InformII metershould not be used for Glucose determinations.Draw a venous Glucose and send to the Main Lab for Analysis. XR CHEST 1 [id number] 08:18:18EXAM: Portable AP chest x-rayLOCATION: R16 INDICATION: CoughCOMPARISON: 11/07/2017FINDINGS:The cardiacsilhouette is stable enlargement. There are increasinginterstitial opacities, most evident in the perihilar regions and lowerlobes. There is blunting of the costophrenic angles bilaterally. Thereis no discernible pneumothorax.IMPRESSION:Increasing perihilar and bilateral lower lobe opacities compared to theprior exam dated 11/07. Findings may represent pulmonary edema orpneumonia in the appropriate clinical setting.Comprehensive Metabolic [id number] 08:05:00 Test Item Value Reference Range Comments [...] race is not provided, and the patient isAfrican-Liberian, multiply by 1.212. If sex is not provided, and thepatient is female, multiply by 0.742. Results for patients <18 years ofage have not been validated by the MDRD study and should be interpretedwith caution.eGFR Result Interpretation:eGFR > or=60 is in the Normal RangeeGFR < 60 may mean kidney diseaseeGFR < 15 may mean kidney failureRanges recommended by the National Kidney Foundation,http://nkdep.nih .gov CK [id number] 08:05:00 Test Item Value Reference Range Comments CK (test code=CK) 149 U/L 39-308 Troponin [id number] 08:02:00 Test Item Value Reference Range Comments Troponin T (test code=MADHAV) 0.114 ng/mL 0.000-0.090 Add-[id number] 08:02:00 Test Item Value Reference Range Comments NT ProBnp (test code=PBNP) >45122 pg/mL 0-124 CBC with Abrnrkuvhgaq9753-26-28 07:53:00 Test Item Value Reference Range Comments [...] Lymph Abs (test code=ALYMPH) 0.9 K/cumm 0.5-4.6 Hyde Abs (test code=AMONO) 0.4 K/cumm 0.0-1.2 Eos Abs (test code=AEOS) 0.11 K/cumm 0.00-0.74 Baso Abs (test code=ABASO) 0.0 K/cumm 0.00-0.21 XR CHEST 1 [id number] 21:38:09EXAM: CHEST ONE VIEWINDICATION: CoughCOMPARISON: October 06, 2017TECHNIQUE: AP view of the chest.FINDINGS: The cardiomediastinal silhouette is unchanged. Mild congestive changesbilaterally. No pneumothorax or pleural effusion is identified. Theosseous structures are unremarkable.IMPRESSION: Diffuse congestive changes bilaterally.LOCATION: R16US DUPLX EXT VEINS COMPRS, [id number] 20:09:34AFTER HOURS SERVICE ON: 10/06/2017 8: 09 PMRIGHT Lower Extremity Venous Duplex Doppler ExaminationLocation Code Y81Rvjecay: SwellingTechnique: Real-time castillo scale, Doppler spectral analysis [...] imaged vessels.AFTER HOURS SERVICE ON: 10/06/2017 8:09 [facility] Lower Extremity Venous Duplex Doppler ExaminationLocation Code S38Mdehrfo : SwellingTechnique: Real-time castillo scale, Doppler spectral [...] of DVT in the imaged vessels.Comprehensive Metabolic [id number] 17 :40:00 Test Item Value Reference Range [...] race is not provided, and the patient isAfrican-Liberian, multiply by 1.212. If sex is not [...] the National Kidney Foundation,http://nkdep.nih .gov CBC with [id number] 17:15:00 Test Item Value Reference Range Comments [...] Lymph Abs (test code=ALYMPH) 1.3 K/cumm 0.5-4.6 Hyde Abs (test code=AMONO) 0.6 K/cumm 0.0-1.2 Eos Abs (test code=AEOS) 0.12 K/cumm 0.00-0.74 Baso Abs (test code=ABASO) 0.0 K/cumm 0.00-0.21 XR CHEST 1 [id number] 16:56:42CHEST 1 VIEW: [id number]: coughCOMPARISON: Sep 24, 2017FINDINGS:The heart is enlarged. There is engorgement of the central pulmonaryvasculature. There are patchy bibasilar areas of infiltrate oratelectasis with bilateral effusions. No pneumothorax is present. IMPRESSION: 1. Patchy areas of atelectasis or infiltrate in the lung bases withsmall bilateral effusions and vascular congestion most likely secondaryto CHF.Culture, Blood [id number] 14:58:00Specimen: BloodCollected: 2017 13:05 Status: Final Last Updated: 09/29/2017 14:58 (1) ER Bed 1 Culture Result (Final) (Final) No Growth After 5 DaysCulture, Blood [id number] 14:58:00Specimen: BloodCollected: 09/24/2017 12:50 Status: Final Last Updated: 09/29/2017 14:58 (1) ER Bed 1 Culture Result (Final) (Final) No Growth After 5 DaysPOC Glucose, [id number] 10:54:00 Test Item Value Reference Range Comments POC Glucose (test 168 mg/dL 70-115 If you consider your patient code=POCGLUC) critically ill, the [facility] Accu-Chek InformII metershould not be used for Glucose determinations.Draw a venous Glucose and send to the Main Lab for Analysis. POC Glucose, [id number] 07:16:00 Test Item Value Reference Range Comments POC Glucose (test 143 mg/dL 70-115 If you consider your patient code=POCGLUC) critically ill, the [facility] Accu-Chek InformII metershould not be used for Glucose determinations.Draw a venous Glucose and send to the Main Lab for Analysis. CBC with [id number] 07:15:00 Test Item Value Reference Range Comments [...] Lymph Abs (test code=ALYMPH) 1.3 K/cumm 0.5-4.6 Hyde Abs (test code=AMONO) 0.7 K/cumm 0.0-1.2 Eos Abs (test code=AEOS) 0.07 K/cumm 0.00-0.74 Baso Abs (test code=ABASO) 0.0 K/cumm 0.00-0.21 Magnesium, [id number] 07:03:00 Test Item Value Reference Range Comments Magnesium (test code=MG) 2.0 mg/dL 1.7-2.5 Basic Metabolic [id number] 07:03:00 Test Item Value Reference Range Comments [...] race is not provided, and the patient isAfrican-Liberian, multiply by 1.212. If sex is not [...] the National Kidney Foundation,http://nkdep.nih .gov POC Glucose, [id number] 21:40:00 Test Item Value Reference Range Comments POC Glucose (test 129 mg/dL 70-115 If you consider your patient code=POCGLUC) critically ill, the [facility] Accu-Chek InformII metershould not be used for Glucose determinations.Draw a venous Glucose and send to the Main Lab for Analysis. Hep B Surface [id number] 18:36:00 Test Item Value Reference Range Comments Hep Bs Ag (test code=HBSAG) Nonreactive Non-Reactive POC Glucose, [id number] 10:51:00 Test Item Value Reference Range Comments POC Glucose (test 216 mg/dL 70-115 If you consider your patient code=POCGLUC) critically ill, the [facility] Accu-Chek InformII metershould not be used for Glucose determinations.Draw a venous Glucose and send to the Main Lab for Analysis. POC Glucose, [id number] 07:57:00 Test Item Value Reference Range Comments POC Glucose (test 164 mg/dL 70-115 If you consider your patient code=POCGLUC) critically ill, the [facility] Accu-Chek InformII metershould not be used for Glucose determinations.Draw a venous Glucose and send to the Main Lab for Analysis. POC Glucose, [id number] 19:47:00 Test Item Value Reference Range Comments POC Glucose (test 140 mg/dL 70-115 Notify RN or MDIf you consider code=POCGLUC) your patient critically ill, the [facility] Accu-Chek InformII metershould not be used for Glucose determinations.Draw a venous Glucose and send to the Main Lab for Analysis. Troponin [id number] 19:36:00 Test Item Value Reference Range Comments Troponin T (test code=MADHAV) 0.121 ng/mL 0.000-0.090 CK [id number] 19:25:00 Test Item Value Reference Range Comments CK (test code=CK) 160 U/L 39-308 The value HIDE originally released by DaWanda on 09/25/2017 19:12 waschanged to 160 by 5minutes on 09/25/2017 19:24 CKMB (test code=CKMB) 3.0 ng/mL 0.0-4.9 CKMB% (test code=CKMBP) 1.9 % 0.0-3.4 The value HIDE originally released by [employer] on 09/25/2017 19:12 waschanged to 1.9 by [employer] on 09/25/2017 19:24 POC Glucose, [id number] 16:42:00 Test Item Value Reference Range Comments POC Glucose (test 123 mg/dL 70-115 If you consider your patient code=POCGLUC) critically ill, the [facility] Accu-Chek InformII metershould not be used for Glucose determinations.Draw a venous Glucose and send to the Main Lab for Analysis. POC Glucose, [id number] 12:09:00 Test Item Value Reference Range Comments POC Glucose (test 141 mg/dL 70-115 If you consider your patient code=POCGLUC) critically ill, the [facility] Accu-Chek InformII metershould not be used for Glucose determinations.Draw a venous Glucose and send to the Main Lab for Analysis. Hep B Surface [id number] 07:59:00 Test Item Value Reference Range Comments Hep Bs Ag (test code=HBSAG) Nonreactive Non-Reactive CK [id number] 07:43:00 Test Item Value Reference Range Comments CK (test code=CK) n/a U/L 39-308 CKMB (test code=CKMB) 2.4 ng/mL 0.0-4.9 CKMB% (test code=CKMBP) 0.0 % 0.0-3.4 Troponin [id number] 07:38:00 Test Item Value Reference Range Comments Troponin T (test code=MADHAV) 0.134 ng/mL 0.000-0.090 Thyroid Stimulating Hormone (TSH)2017-09-25 07:38:00 Test Item Value Reference Range Comments TSH (test code=TSH) 1.10 mIU/mL 0.270-4.200 [id number] 07:38:00 Test Item Value Reference Range Comments Phosphorus (test code=PO4) 3.4 mg/dL 2.70-4.50 Comprehensive Metabolic [id number] 07:38:00 Test Item Value Reference Range Comments [...] race is not provided, and the patient isAfrican-Liberian, multiply by 1.212. If sex is not provided, and thepatient is female, multiply by 0.742. Results for patients <18 years ofage have not been validated by the MDRD study and should be interpretedwith caution.eGFR Result Interpretation:eGFR > or=60 is in the Normal RangeeGFR < 60 may mean kidney diseaseeGFR < 15 may mean kidney failureRanges recommended by the National Kidney Foundation,http://nkdep.nih .gov Magnesium, [id number] 07:38:00 Test Item Value Reference Range Comments Magnesium (test code=MG) 2.0 mg/dL 1.7-2.5 CK [id number] 07:31:00 Test Item Value Reference Range Comments CK (test code=CK) 159 U/L 39-308 Lipid [id number] 07:31:00 Test Item Value Reference Range Comments Cholesterol (test 118 mg/dL 0-200 code=CHOL) Triglycerides (test 170 mg/dL 9-200 code=TRIG) HDL (test code=HDL) 49 mg/dL 40-60 Chol/HDL (test 2.4 Ratio 0.0-5.0 code=CHOLPHDL) LDL, Calculated (test 35 0-130 (NOTE)RISK OF HEART code=LDLC) DISEASEPublished by [place] Heart AssociationAnalyte Optimal Boderline Increased RiskCHOL <200 200-239 >240TRIG <150 150-199 >200HDL Male: >60 <40HDL Female: >60 <50LDL <100 130-159 >160LDL NEAR OPTIMAL IS 100-129 VLDL (test code=VLDL) 34 mg/dL 5-40 LDL/HDL (test code=LDLPHDL) 1 Glycosylated [id number] 07:24:00 Test Item Value Reference Range Comments HBA1c (test code=HBA1C) 5.0 % 4.8-5.9 CBC with [id number] 07:20:00 Test Item Value Reference Range Comments [...] Lymph Abs (test code=ALYMPH) 0.8 K/cumm 0.5-4.6 Hyde Abs (test code=AMONO) 0.5 K/cumm 0.0-1.2 Eos Abs (test code=AEOS) 0.10 K/cumm 0.00-0.74 Baso Abs (test code=ABASO) 0.0 K/cumm 0.00-0.21 POC Glucose, [id number] 07:03:00 Test Item Value Reference Range Comments POC Glucose (test 147 mg/dL 70-115 If you consider your patient code=POCGLUC) critically ill, the [facility] Accu-Chek InformII metershould not be used for Glucose determinations.Draw a venous Glucose and send to the Main Lab for Analysis. POC Glucose, [id number] 22:05:00 Test Item Value Reference Range Comments POC Glucose (test 134 mg/dL 70-115 If you consider your patient code=POCGLUC) critically ill, the [facility] Accu-Chek InformII metershould not be used for Glucose determinations.Draw a venous Glucose and send to the Main Lab for Analysis. Blood Gas+Lytes+Glu+Ca+Hgb+Hct+[id number] 18:31:00 Test Item Value Reference Range Comments [...] Celcius code=PTTEMP) Comment (test code=COMMENT) [email or web address] [email or web address] Puncture Site (test code=PUNSITE) Radial. R Drawing Tech ID (test medel fi code=DRAWTECH) iPAP (test code=IPAP) 0 cmH2O Respiratory Rate (test code=RESP 0 RATE) Lactic Acid, Blood Gas (test 0.4 mmol/L code=BGLA) CT CHEST W/O [id number] 16:48:03CT CHEST W/O CONTRASTLOCATION CODE: R16 HISTORY: [...] bilateral axillary, prevascular, andparatracheal lymph nodes.Influenza B [id number] 14:36:00Specimen: NasalCollected: 09/24/2017 14:04 Status: Final Last [...] Culture of negative samples is recommended.Influenza A [id number] 14:34:00Specimen: NasalCollected: 09/24/2017 14:04 Status: Final Last [...] Culture of negative samples is recommended.Comprehensive Metabolic [id number] 13:54:00 Test Item Value Reference Range Comments [...] race is not provided, and the patient isAfrican-Liberian, multiply by 1.212. If sex is not provided, and thepatient is female, multiply by 0.742. Results for patients <18 years ofage have not been validated by the MDRD study and should be interpretedwith caution.eGFR Result Interpretation:eGFR > or=60 is in the Normal RangeeGFR < 60 may mean kidney diseaseeGFR < 15 may mean kidney failureRanges recommended by the National Kidney Foundation,http://nkdep.nih .gov Troponin [id number] 13:54:00 Test Item Value Reference Range Comments Troponin T (test code=MADHAV) 0.124 ng/mL 0.000-0.090 Klo-[id number] 13:54:00 Test Item Value Reference Range Comments NT ProBnp (test code=PBNP) >08588 pg/mL 0-124 CK [id number] 13:54:00 Test Item Value Reference Range Comments CK (test code=CK) 222 U/L 39-308 CKMB (test code=CKMB) 3.1 ng/mL 0.0-4.9 CKMB% (test code=CKMBP) 1.4 % 0.0-3.4 CK [id number] 13:54:00 Test Item Value Reference Range Comments CK (test code=CK) 222 U/L 39-308 Partial Thromboplastin [id number] 13:43:00 Test Item Value Reference Range Comments aPTT (test code=PTT) 35.70 seconds 24.39-37.25 Prothrombin [id number] 13:43:00 Test Item Value Reference Range Comments PT (test code=PT) 11.30 seconds 9.78-13.35 INR (test code=INR) 0.99 Ratio 0.6-1.2 Lactic Acid [id number] 13:41:00 Test Item Value Reference Range Comments Lactic Acid, Bld (test code=LAC) 1.3 mmol/L 0.5-1.9 CBC with [id number] 13:32:00 Test Item Value Reference Range Comments [...] Lymph Abs (test code=ALYMPH) 1.2 K/cumm 0.5-4.6 Hyde Abs (test code=AMONO) 0.6 K/cumm 0.0-1.2 Eos Abs (test code=AEOS) 0.23 K/cumm 0.00-0.74 Baso Abs (test code=ABASO) 0.0 K/cumm 0.00-0.21 XR CHEST 1 [id number] 12:50:14XR CHEST 1 VIEWLOCATION: [id number]: None.INDICATION: CoughDISCUSSION:A single portable chest radiograph was [...]
--- OUTSIDE RECORDS SUMMARY | 2019-07-24 19:49 | XMS REPORT ---
[...] Patient Date Date Name Instruction AMLODIPINE AMLODIPINE 11361101363 Active Mo Active BESYLATE 10 MG BESYLATE Dicks OD ORAL TABLET CALCIUM ACETATE CALCIUM ACETATE 54832688789 Active Mo Active (PHOS BINDER) (PHOS BINDER) Dicks OD 667 MG ORAL CAPSULE CRESTOR 5 MG ROSUVASTATIN 38176824861 Active Mo Active ORAL TABLET CALCIUM Dicks OD EPIVIR SOLUTION LAMIVUDINE SOLN 24996245838 Active Mo Active Dicks OD ISENTRESS RALTEGRAVIR 05291899236 Active Mo Active TABLET POTASSIUM TABS Dicks OD KALETRA TABLET LOPINAVIR-RITONAVI 87411850562 Active Mo Active R TABS Dicks OD LAMIVUDINE LAMIVUDINE TABS 53763695171 Active Mo Active TABLET Dicks OD PROAIR HFA ALBUTEROL SULFATE 16623499326 Active Mo Active AEROSOL AERS Dicks OD SOLUTION PEDRO-EAMON RX B-COMPLEX W/ C & 61380683318 Active Mo Active TABLET FOLIC ACID TABS Dicks OD VITAMIN D2 ERGOCALCIFEROL 39065497501 Active Mo Active TABLET TABS Dicks OD Diagnostic Results Date Name Value Unit Range Description Append: Eye Exam - Hematology T-helper cells (CD4) count 602 uL Append: Eye Exam - Serology HIV-1RNA, serum, by PCR, quantitative 20 {Copies}/mL Procedures Code Procedure Name Date Entry Date Standard Description CPT-83232 Dispensing Visit (UNLIVSTED OPHTHALMOLOGICAL 10:14:39 CDT SERVICE/PROCEDURE) CPT-55056 Est Patient Comprehensive Opt - 19556 15:29:32 CDT CPT-42834 New Patient Intermediate Opt - 88171 14:28:41 CDT
--- NOTE | 2019-07-24 21:00 | RAD REPORT ---
EXAM DESCRIPTION: RAD - Tib Fib Left - 07/24/2019 8:45 pm CLINICAL HISTORY: Pain, left leg injury COMPARISON: None. FINDINGS: No gross fracture deformity is seen. There is a small punctate bone density anterior sukumar n of the midshaft tibia. This could be a small chip fracture. This does not extend through the full t hickness of the anterior cortical margin. There is no dislocation or periosteal reaction noted. No ac esha or suspicious bony finding. Arterial tree calcifications are present. No acute knee or ankle joint finding. IMPRESSION: Questionable small chip fracture anterior midshaft tibia only partially involving the th ickness of the anterior cortex. Correlation needed with localizing symptoms. No other acute bone finding.
--- NOTE | 2019-07-24 21:25 | EDPHYS ---
Physician Documentation [facility] Name: Salvatore Goldman Age: 64 yrs Sex: Male : 1955 Arrival Date: 07/24/2019 Time: 19:23 Bed 18 Private MD: MICHELINE Physician Boston Johnson HPI: 07/24 20:14 This 64 yrs old Black Male presents to ER via Wheelchair with complaints of Leg Pain. beny 20:14 The patient presents with decreased range of motion, pain, swelling, tenderness. The beny complaints affect the lateral aspect of left calf, medial aspect of left calf and left sinclair. Context: The problem was sustained outdoors. Onset: The symptoms/episode began/occurred this morning. Modifying factors: The symptoms are alleviated by elevating leg, remaining still, the symptoms are aggravated by nothing. Associated signs and symptoms: The patient has no apparent associated signs or symptoms. Treatment prior to arrival includes: no previous treatment. The patient has not experienced similar symptoms in the past. Historical: - Allergies: 19:54 codeine sulfate (DIZZINESS); wh - Home Meds: 19:54 aspirin 81 mg Oral chew 1 tab once daily [Active]; atorvastatin 20 mg Oral tab 1 tab wh once daily [Active]; docusate sodium 100 mg Oral tab 1 tab 2 times per day [Active]; Isentress 400 mg Oral tab 1 tab 2 times per day [Active]; Kaletra 200-50 mg Oral tab 2 tabs 2 times per day [Active]; lamivudine 10 mg/mL Oral soln 2.5 mL once daily [Active]; metoprolol tartrate 25 mg Oral tab 1 tab once daily [Active]; Vitamin D Oral 03427 unit WEEKLY [Active]; warfarin 5 mg Oral tab 1 tab once daily [Active]; - PMHx: 19:54 Cirrhosis; Diabetes - NIDDM; Dialysis; heart valve; Hepatitis; HIV; Hyperlipidemia; wh Karposi Sarcoma (left leg); kidney failure; L arm HD access; - Immunization history:: Adult Immunizations up to date. - Social history:: Smoking status: Patient/guardian denies using tobacco. - Ebola Screening: : Patient negative for fever greater than or equal to 101.5 degrees Fahrenheit, and additional compatible Ebola Virus Disease symptoms Patient denies exposure to infectious person. - Family history:: not pertinent. ROS: 20:14 Constitutional: Negative for fever, chills, and weight loss, Eyes: Negative for injury, beny pain, redness, and discharge, ENT: Negative for injury, pain, and discharge, Neck: Negative for injury, pain, and swelling, Cardiovascular: Negative for chest pain, palpitations, and edema, Respiratory: Negative for shortness of breath, cough, wheezing, and pleuritic chest pain, Abdomen/GI: Negative for abdominal pain, nausea, vomiting, diarrhea, and constipation, Back: Negative for injury and pain, : Negative for injury, bleeding, discharge, and swelling, Skin: Negative for injury, rash, and discoloration, Neuro: Negative for headache, weakness, numbness, tingling, and seizure, Psych: Negative for depression, anxiety, suicide ideation, homicidal ideation, and hallucinations, Allergy/Immunology: Negative for hives, rash, and allergies, Endocrine: Negative for neck swelling, polydipsia, polyuria, polyphagia, and marked weight changes, Hematologic/Lymphatic: Negative for swollen nodes, abnormal bleeding, and unusual bruising. 20:14 MS/extremity: Positive for decreased range of motion, pain, swelling, tenderness, of the lateral aspect of left calf, medial aspect of left calf and left sinclair. Exam: 20:14 Constitutional: This is a well developed, well nourished patient who is awake, alert, beny and in no acute distress. Head/Face: Normocephalic, atraumatic. Eyes: Pupils equal round and reactive to light, extra-ocular motions intact. Lids and lashes normal. Conjunctiva and sclera are non-icteric and not injected. Cornea within normal limits. Periorbital areas with no swelling, redness, or edema. ENT: Nares patent. No nasal discharge, no septal abnormalities noted. Tympanic membranes are normal and external auditory canals are clear. Oropharynx with no redness, swelling, or masses, exudates, or evidence of obstruction, uvula midline. Mucous membranes moist. Neck: Trachea midline, no thyromegaly or masses palpated, and no cervical lymphadenopathy. Supple, full range of motion without nuchal rigidity, or vertebral point tenderness. No Meningismus. Chest/axilla: Normal chest wall appearance and motion. Nontender with no deformity. No lesions are appreciated. Cardiovascular: Regular rate and rhythm with a normal S1 and S2. No gallops, murmurs, or rubs. Normal PMI, no JVD. No pulse deficits. Respiratory: Lungs have equal breath sounds bilaterally, clear to auscultation and percussion. No rales, rhonchi or wheezes noted. No increased work of breathing, no retractions or nasal flaring. Abdomen/GI: Soft, non-tender, with normal bowel sounds. No distension or tympany. No guarding or rebound. No evidence of tenderness throughout. Skin: Warm, dry with normal turgor. Normal color with no rashes, no lesions, and no evidence of cellulitis. MS/ Extremity: Pulses equal, no cyanosis. Neurovascular intact. Full, normal range of motion. Neuro: Awake and alert, GCS 15, oriented to person, place, time, and situation. Cranial nerves II-XII grossly intact. Motor strength 5/5 in all extremities. Sensory grossly intact. Cerebellar exam normal. Normal gait. Psych: Awake, alert, with orientation to person, place and time. Behavior, mood, and affect are within normal limits. Vital Signs: 19:45 BP 134 / 71; Pulse 86; Resp 18; Temp 98.6; Pulse Ox 100% ; Weight 70.76 kg; Height 5 wh ft. 7 in. (170.18 cm); 20:30 BP 130 / 83; Pulse 89; Resp 18; Pulse Ox 99% on R/A; wh 21:15 BP 143 / 75; Pulse 83; Resp 18; Pulse Ox 97% on R/A; wh 19:45 Body Mass Index 24.43 (70.76 kg, 170.18 cm) MDM: 19:44 Patient medically screened. [facility] 20:16 Data reviewed: vital signs, nurses notes, radiologic studies, plain films. [facility] 07/24 20:13 Order name: Tib Fib Left XRAY [facility] 07/24 20:13 Order name: Ice pack; Complete Time: 20:15 [facility] 07/24 21:16 Order name: Knee Immobilizer; Complete Time: 21:41 [facility] 07/24 21:16 Order name: Crutches; Complete Time: 21:41 [facility] Administered Medications: No medications were administered Disposition: 07/24/19 21:24 Discharged to Home. Impression: Contusion of left lower leg - hematoma, Coagulation defect, unspecified - coumadin. - Condition is Stable. - Discharge Instructions: Contusion, Hematoma, Hematoma, [id number], Contusion, [id number], Acute Compartment Syndrome. - Prescriptions for Tramadol 50 mg Oral Tablet - take 1 tablet by ORAL route every 8 hours as needed; 20 tablet. - Medication Reconciliation Form, Thank You Letter, Antibiotic Education, Prescription Opioid Use form. - Follow up: Private Physician; When: 2 - 3 days; Reason: Recheck today's complaints, Continuance of care, Re-evaluation by your physician. Follow up: Moiz Thomas MD; When: 2 - 3 days; Reason: Recheck today's complaints, Continuance of care, Re-evaluation by your physician. - Problem is new. - Symptoms have improved. Signatures: Dispatcher [employer] EDBoston Morgan MD MD cha Habalo, Winsy Corrections: (The following items were deleted from the chart) 21:47 21:24 07/24/2019 21:24 Discharged to Home. Impression: Contusion of left lower leg - wh hematoma; Coagulation defect, unspecified - coumadin. Condition is Stable. Forms are Medication Reconciliation Form, Thank You Letter, Antibiotic Education, Prescription Opioid Use. Follow up: Private Physician; When: 2 - 3 days; Reason: Recheck today's complaints, Continuance of care, Re-evaluation by your physician. Follow up: Dr. Moiz Thomas; When: 2 - 3 days; Reason: Recheck today's complaints, Continuance of care, Re-evaluation by your physician. Problem is new. Symptoms have improved. beny
--- NOTE | 2019-07-24 21:25 | ER ---
Nurse's Notes [facility] Name: Salvatore Goldman Age: 64 yrs Sex: Male : 1955 Arrival Date: 07/24/2019 Time: 19:23 Bed 18 Private MD: Diagnosis: Contusion of left lower leg-hematoma;Coagulation defect, unspecified-coumadin Presentation: 07/24 19:44 Presenting complaint: Patient states: He hit his left leg on the back of his trailer, wh now C/O pain and states he cant put weight on his left leg. Transition of care: patient was not received from another setting of care. Onset of symptoms was July 24, 2019. Risk Assessment: Do you want to hurt yourself or someone else? Patient reports no desire to harm self or others. Initial Sepsis Screen: Does the patient meet any 2 criteria? No. Patient's initial sepsis screen is negative. Does the patient have a suspected source of infection? No. Patient's initial sepsis screen is negative. Care prior to arrival: None. 19:44 Method Of Arrival: Wheelchair 19:44 Acuity: NARDA 4 Historical: - Allergies: 19:54 codeine sulfate (DIZZINESS); wh - Home Meds: 19:54 aspirin 81 mg Oral chew 1 tab once daily [Active]; atorvastatin 20 mg Oral tab 1 tab once daily [Active]; docusate sodium 100 mg Oral tab 1 tab 2 times per day [Active]; Isentress 400 mg Oral tab 1 tab 2 times per day [Active]; Kaletra 200-50 mg Oral tab 2 tabs 2 times per day [Active]; lamivudine 10 mg/mL Oral soln 2.5 mL once daily [Active]; metoprolol tartrate 25 mg Oral tab 1 tab once daily [Active]; Vitamin D Oral 37634 unit WEEKLY [Active]; warfarin 5 mg Oral tab 1 tab once daily [Active]; - PMHx: 19:54 Cirrhosis; Diabetes - NIDDM; Dialysis; heart valve; Hepatitis; HIV; Hyperlipidemia; wh Karposi Sarcoma (left leg); kidney failure; L arm HD access; - Immunization history:: Adult Immunizations up to date. - Social history:: Smoking status: Patient/guardian denies using tobacco. - Ebola Screening: : Patient negative for fever greater than or equal to 101.5 degrees Fahrenheit, and additional compatible Ebola Virus Disease symptoms Patient denies exposure to infectious person. - Family history:: not pertinent. Screenin:47 Abuse screen: Denies threats or abuse. Denies injuries from another. Nutritional wh screening: No deficits noted. Tuberculosis screening: No symptoms or risk factors identified. Fall Risk None identified. Assessment: 19:48 General: Appears in no apparent distress. Behavior is calm, cooperative, appropriate wh for age. Pain: Complains of pain in left sinclair Pain does not radiate. Pain currently is 7 out of 10 on a pain scale. Pain began 4 hours ago. Aggravated by increased activity, weight bearing. Neuro: Level of Consciousness is awake, alert, obeys commands, Oriented to person, place, time, situation, Appropriate for age. Cardiovascular: Capillary refill < 3 seconds. Respiratory: Airway is patent Respiratory effort is even, unlabored, Respiratory pattern is regular, symmetrical. Respiratory: GI: Abdomen is flat, non-distended. : No signs and/or symptoms were reported regarding the genitourinary system. EENT: No signs and/or symptoms were reported regarding the EENT system. Derm: Skin is intact, is healthy with good turgor, Skin is pink, warm \T\ dry. normal. Musculoskeletal: Circulation, motion, and sensation intact. 20:25 Reassessment: Patient appears in no apparent distress at this time. No changes from previously documented assessment. Patient and/or family updated on plan of care and expected duration. Pain level reassessed. Patient is alert, oriented x 3, equal unlabored respirations, skin warm/dry/pink. 21:26 Reassessment: Patient appears in no apparent distress at this time. No changes from previously documented assessment. Patient and/or family updated on plan of care and expected duration. Pain level reassessed. Patient is alert, oriented x 3, equal unlabored respirations, skin warm/dry/pink. Vital Signs: 19:45 BP 134 / 71; Pulse 86; Resp 18; Temp 98.6; Pulse Ox 100% ; Weight 70.76 kg; Height 5 wh ft. 7 in. (170.18 cm); 20:30 BP 130 / 83; Pulse 89; Resp 18; Pulse Ox 99% on R/A; wh 21:15 BP 143 / 75; Pulse 83; Resp 18; Pulse Ox 97% on R/A; 19:45 Body Mass Index 24.43 (70.76 kg, 170.18 cm) ED Course: 19:23 Patient arrived in ED. cf2 19:40 Jonathan Easley is Primary Nurse. 19:44 Boston Johnson MD is Attending Physician. [facility] 19:45 Triage completed. 19:48 Arm band placed on. 19:48 Patient has correct armband on for positive identification. Bed in low position. Call light in reach. Side rails up X 1. Pulse ox on. NIBP on. 20:46 Tib Fib Left XRAY In Process Unspecified. EDMS 21:16 Moiz Thomas MD is Referral Physician. [facility] 21:46 No provider procedures requiring assistance completed. Patient did not have IV access during this emergency room visit. Administered Medications: No medications were administered Outcome: 21:24 Discharge ordered by . [facility] 21:46 Discharged to home via wheelchair, with crutches. 21:46 Condition: stable 21:46 Discharge instructions given to patient, family, Instructed on discharge instructions, follow up and referral plans. no drinking with medication, no driving heavy equipment, medication usage, crutch walking, POC Leg Contusion and Compartment Syndrome Demonstrated understanding of instructions, follow-up care, medications, crutch walking, splint care, POC Prescriptions given X 1. 21:47 Patient left the ED. Signatures: Dispatcher [employer] EDFL Boston Johnson MD MD cha Habalo, Winsy Linda Connermarybeth cf2 Corrections: (The following items were deleted from the chart) 19:47 19:44 Presenting complaint: Patient states: He hit his right leg on the back of his trailer, now C/O pain and states he cant put weight on his right leg
[2019-07-24 22:11] VITALS: TEMP 98.6
[2019-07-24 22:15] VITALS: BP 143/75; O2SAT 97
== END 2019-07-24 21:47 | disposition home or self-care (01) ==
LOC: ER 19:15
DX: S80.12XA Contusion of left lower leg, initial encounter (principal); D68.9 Coagulation defect, unspecified; B20 Human immunodeficiency virus [HIV] disease; C46.7 Kaposi's sarcoma of other sites; I12.0 Hypertensive chronic kidney disease with stage 5 chronic kidney disease or end stage renal disease; N18.6 End stage renal disease; E11.22 Type 2 diabetes mellitus with diabetic chronic kidney disease; Z79.01 Long term (current) use of anticoagulants; Z79.82 Long term (current) use of aspirin; Z99.2 Dependence on renal dialysis
CPT/HCPCS: 99284

== ENCOUNTER 2019-07-28 23:06 | Inpatient (IN) | payer OTHER ==
--- OUTSIDE RECORDS SUMMARY | 2019-07-28 23:33 | XMS REPORT ---
:1955 [facility] [address] [place] [address] Care Team Providers Name Role Phone UNKNOWN, [...] Facility Department ID 2017-11-18 2017-11-20 [facility] [id number] 13:43:00 13:54:00 MAYLIN 2017-11-07 2017-11-07 Emergency E [facility] [id number] 20:22:00 20:22:00 2017-10-06 2017-10-06 [facility] [id number] 14:25:00 14:25:00 NEEL Results Test Description Test Time Test Comments Text Results Atomic Results Result Comments AFB CULTURE + SMEAR 2019-02-02 07:33:00 Test Item Value Reference Range Comments CULTURE (BEAKER) (test dbxx=5847) No acid-fast bacilli isolated in 42 days AFB SMEAR (BEAKER) (test xyxa=728) No acid fast bacilli seen FUNGUS CULTURE + [id number] 17:26:00 Test Item Value Reference Range Comments CULTURE (BEAKER) (test No fungus isolated in 28 days pmjo=3307) FUNGUS SMEAR (BEAKER) (test No fungi seen obwd=7213) POCT-GLUCOSE [id number] 13:35:00 Test Item Value Reference Range Comments POC-GLUCOSE METER (BEAKER) 116 mg/dL 70-110 TESTED AT [facility] [address] [facility] (test hijf=4637) [facility] [address] POCT-GLUCOSE [id number] 08:54:00 Test Item Value Reference Range Comments POC-GLUCOSE METER (BEAKER) 99 mg/dL 70-110 TESTED AT [address] (test qeqo=8207) [facility] [address] [id number] 06:34:00 Test Item Value Reference Range Comments PARTIAL THROMBOPLASTIN TIME (BEAKER) (test 46.7 seconds 22.5-36.0 fzxt=115) While on warfarin.PROTHROMBIN TIME/[id number] 06:33:00 Test Item Value Reference Range Comments PROTIME (BEAKER) (test nphg=390) 26.5 seconds 11.7-14.7 INR (BEAKER) (test ksax=393) 2.6 <=5.9 RECOMMENDED COUMADIN/WARFARIN INR THERAPY RANGESSTANDARD DOSE: 2.0 - 3.0 Includes: PROPHYLAXIS forvenous thrombosis, systemic embolization; TREATMENT for venous thrombosis and/or pulmonary embolus.HIGH RISK: Target INR is 2.5-3.5 for patients with mechanical heart valves.While on warfarin.BASIC METABOLIC [id number] 06:30:00 Test Item Value Reference Range Comments SODIUM (BEAKER) (test 132 meq/L 136-145 zuua=841) POTASSIUM (BEAKER) (test 4.7 meq/L 3.5-5.1 abnf=147) CHLORIDE (BEAKER) (test 96 meq/L 98-107 wkbw=569) CO2 (BEAKER) (test 27 meq/L 22-29 edyn=015) BLOOD UREA NITROGEN 59 mg/dL 7-21 (BEAKER) (test dwca=592) CREATININE (BEAKER) (test 6.00 mg/dL 0.57-1.25 ibkx=764) GLUCOSE RANDOM (BEAKER) 118 mg/dL 70-105 (test vswc=133) CALCIUM (BEAKER) (test 9.5 mg/dL 8.4-10.2 qjxx=520) EGFR (BEAKER) (test 12 mL/min/1.73 sq m ESTIMATED GFR IS NOT ebcv=8933) ACCURATE CREATININE CLEARANCE IN PREDICTING GLOMERULAR FILTRATION RATE. ESTIMATED GFR IS NOT APPLICABLE FOR DIALYSIS PATIENTS. CBC (HEMOGRAM ONLY)2019-01-06 06:09:00 Test Item Value Reference Range Comments WHITE BLOOD CELL COUNT (BEAKER) (test pxwy=262) 9.4 K/ L 3.5-10.5 RED BLOOD CELL COUNT (BEAKER) (test injq=826) 2.60 M/ L 4.63-6.08 HEMOGLOBIN (BEAKER) (test mhhe=410) 8.5 GM/DL 13.7-17.5 HEMATOCRIT (BEAKER) (test imkf=948) 27.6 % 40.1-51.0 MEAN CORPUSCULAR VOLUME (BEAKER) (test seud=379) 106.2 fL 79.0-92.2 MEAN CORPUSCULAR HEMOGLOBIN (BEAKER) (test 32.7 pg 25.7-32.2 dkhz=436) MEAN CORPUSCULAR HEMOGLOBIN CONC (BEAKER) (test 30.8 GM/DL 32.3-36.5 nidi=275) RED CELL DISTRIBUTION WIDTH (BEAKER) (test 17.9 % 11.6-14.4 omvc=554) PLATELET COUNT (BEAKER) (test uxys=771) 148 K/CU MM 150-450 MEAN PLATELET VOLUME (BEAKER) (test gzep=907) 9.2 fL 9.4-12.4 NUCLEATED RED BLOOD CELLS (BEAKER) (test 1 /100 WBC 0-0 ycwi=070) POCT-GLUCOSE [id number] 21:38:00 Test Item Value Reference Range Comments POC-GLUCOSE METER (BEAKER) 192 mg/dL 70-110 TESTED AT [address] (test mfyk=9886) [facility] [address] POCT-GLUCOSE [id number] 13:01:00 Test Item Value Reference Range Comments POC-GLUCOSE METER (BEAKER) 200 mg/dL 70-110 TESTED AT [address] (test pjvi=7248) [facility] [address] POCT-GLUCOSE [id number] 08:00:00 Test Item Value Reference Range Comments POC-GLUCOSE METER (BEAKER) 123 mg/dL 70-110 TESTED AT [address] (test tzas=9394) [facility] [address] [id number] 06:40:00 Test Item Value Reference Range Comments PARTIAL THROMBOPLASTIN TIME (BEAKER) (test 83.1 seconds 22.5-36.0 jrgf=118) [id number] 05:54:00 Test Item Value Reference Range Comments PARTIAL THROMBOPLASTIN TIME (BEAKER) (test > seconds 22.5-36.0 gyuu=310) PROTHROMBIN [id number] 05:30:00 Test Item Value Reference Range Comments PROTIME (BEAKER) (test mcar=781) 24.1 seconds 11.7-14.7 INR (BEAKER) (test wxom=699) 2.3 <=5.9 RECOMMENDED COUMADIN/WARFARIN INR THERAPY RANGESSTANDARD DOSE: 2.0 - 3.0 Includes: PROPHYLAXIS forvenous thrombosis, systemic embolization; TREATMENT for venous thrombosis and/or pulmonary embolus.HIGH RISK: Target INR is 2.5-3.5 for patients with mechanical heart valves.While on warfarin.CBC (HEMOGRAM ONLY) 2019-01-05 05:15:00 Test Item Value Reference Range Comments WHITE BLOOD CELL COUNT (BEAKER) (test uyak=626) 9.4 K/ L 3.5-10.5 RED BLOOD CELL COUNT (BEAKER) (test fvyv=575) 2.54 M/ L 4.63-6.08 HEMOGLOBIN (BEAKER) (test bqda=354) 8.2 GM/DL 13.7-17.5 HEMATOCRIT (BEAKER) (test pngg=680) 27.1 % 40.1-51.0 MEAN CORPUSCULAR VOLUME (BEAKER) (test gyuf=953) 106.7 fL 79.0-92.2 MEAN CORPUSCULAR HEMOGLOBIN (BEAKER) (test 32.3 pg 25.7-32.2 ftkl=719) MEAN CORPUSCULAR HEMOGLOBIN CONC (BEAKER) (test 30.3 GM/DL 32.3-36.5 ldjk=444) RED CELL DISTRIBUTION WIDTH (BEAKER) (test 17.3 % 11.6-14.4 xyxo=170) PLATELET COUNT (BEAKER) (test igvm=680) 151 K/CU MM 150-450 MEAN PLATELET VOLUME (BEAKER) (test seis=251) 8.9 fL 9.4-12.4 NUCLEATED RED BLOOD CELLS (BEAKER) (test 1 /100 WBC 0-0 phdo=448) BASIC METABOLIC [id number] 05:10:00 Test Item Value Reference Range Comments SODIUM (BEAKER) (test 134 meq/L 136-145 uauw=239) POTASSIUM (BEAKER) (test 4.0 meq/L 3.5-5.1 clet=017) CHLORIDE (BEAKER) (test 97 meq/L 98-107 uupu=874) CO2 (BEAKER) (test 29 meq/L 22-29 obtj=523) BLOOD UREA NITROGEN 41 mg/dL 7-21 (BEAKER) (test kgek=594) CREATININE (BEAKER) (test 4.78 mg/dL 0.57-1.25 ywkf=809) GLUCOSE RANDOM (BEAKER) 185 mg/dL 70-105 (test hchz=646) CALCIUM (BEAKER) (test 9.3 mg/dL 8.4-10.2 qnwp=645) EGFR (BEAKER) (test 15 mL/min/1.73 sq m ESTIMATED GFR IS NOT rhuj=2639) ACCURATE CREATININE CLEARANCE IN PREDICTING GLOMERULAR FILTRATION RATE. ESTIMATED GFR IS NOT APPLICABLE FOR DIALYSIS PATIENTS. OCCULT BLOOD, [id number] 23:46:00 Test Item Value Reference Range Comments FECAL OCCULT BLOOD (BEAKER) (test ajik=687) Negative Negative POCT-GLUCOSE [id number] 22:52:00 Test Item Value Reference Range Comments POC-GLUCOSE METER (BEAKER) 192 mg/dL 70-110 TESTED AT [facility] [address] [facility] (test zhmh=2610) [facility] [address] POCT-GLUCOSE [id number] 17:11:00 Test Item Value Reference Range Comments POC-GLUCOSE METER (BEAKER) 149 mg/dL 70-110 TESTED AT [facility] [address] [facility] (test ewki=0486) [facility] [address] PROTHROMBIN [id number] 13:00:00 Test Item Value Reference Range Comments PROTIME (BEAKER) (test jfqy=742) 19.9 seconds 11.7-14.7 INR (BEAKER) (test dkqd=130) 1.8 <=5.9 RECOMMENDED COUMADIN/WARFARIN INR THERAPY RANGESSTANDARD DOSE: 2.0 - 3.0 Includes: PROPHYLAXIS forvenous thrombosis, systemic embolization; TREATMENT for venous thrombosis and/or pulmonary embolus.HIGH RISK: Target INR is 2.5-3.5 for patients with mechanical heart valves.While on warfarin.POCT-GLUCOSE [id number] 12:14:00 Test Item Value Reference Range Comments POC-GLUCOSE METER (BEAKER) 134 mg/dL 70-110 TESTED AT [address] (test tdrx=3201) [facility] [address] RAD, CHEST, 1 VIEW, NON [id number] 08:02:00Reason for exam:->Post opShould this be performed [...] MDReport Verified Date/Time: 01/04/2019 08:02:18 Reading Location: [address] Consult Reading Room Electronicallysigned by: EDENILSON BLOOM M.D. on 01/04/2019 08:02 AMPOCT-GLUCOSE [id number] 07:42:00 Test Item Value Reference Range Comments POC-GLUCOSE METER (BEAKER) 98 mg/dL 70-110 TESTED AT [address] (test xacd=7559) [facility] [address] BASIC METABOLIC [id number] 07:28:00 Test Item Value Reference Range Comments SODIUM (BEAKER) (test 136 meq/L 136-145 mcvm=567) POTASSIUM (BEAKER) (test 4.1 meq/L 3.5-5.1 raxe=040) CHLORIDE (BEAKER) (test 98 meq/L 98-107 gxka=197) CO2 (BEAKER) (test 29 meq/L 22-29 ibnj=438) BLOOD UREA NITROGEN 21 mg/dL 7-21 (BEAKER) (test aydl=766) CREATININE (BEAKER) (test 3.10 mg/dL 0.57-1.25 liac=689) GLUCOSE RANDOM (BEAKER) 101 mg/dL 70-105 (test qxho=821) CALCIUM (BEAKER) (test 9.4 mg/dL 8.4-10.2 socx=212) EGFR (BEAKER) (test 25 mL/min/1.73 sq m ESTIMATED GFR IS NOT ivyc=0713) ACCURATE CREATININE CLEARANCE IN PREDICTING GLOMERULAR FILTRATION RATE. ESTIMATED GFR IS NOT APPLICABLE FOR DIALYSIS PATIENTS. CBC (HEMOGRAM ONLY)2019-01-04 07:07:00 Test Item Value Reference Range Comments WHITE BLOOD CELL COUNT (BEAKER) (test smzx=672) 10.6 K/ L 3.5-10.5 RED BLOOD CELL COUNT (BEAKER) (test jsig=963) 2.69 M/ L 4.63-6.08 HEMOGLOBIN (BEAKER) (test qqfl=072) 8.7 GM/DL 13.7-17.5 HEMATOCRIT (BEAKER) (test bfgf=600) 28.4 % 40.1-51.0 MEAN CORPUSCULAR VOLUME (BEAKER) (test jdxq=936) 105.6 fL 79.0-92.2 MEAN CORPUSCULAR HEMOGLOBIN (BEAKER) (test 32.3 pg 25.7-32.2 vzos=709) MEAN CORPUSCULAR HEMOGLOBIN CONC (BEAKER) (test 30.6 GM/DL 32.3-36.5 zsvn=886) RED CELL DISTRIBUTION WIDTH (BEAKER) (test 17.2 % 11.6-14.4 vvqu=549) PLATELET COUNT (BEAKER) (test imnh=692) 170 K/CU MM 150-450 MEAN PLATELET VOLUME (BEAKER) (test gwjf=612) 9.1 fL 9.4-12.4 NUCLEATED RED BLOOD CELLS (BEAKER) (test 1 /100 WBC 0-0 ulik=691) [id number] 06:08:00 Test Item Value Reference Range Comments PARTIAL THROMBOPLASTIN TIME (BEAKER) (test 70.6 seconds 22.5-36.0 kdcp=344) [id number] 23:32:00 Test Item Value Reference Range Comments PARTIAL THROMBOPLASTIN TIME (BEAKER) (test 77.2 seconds 22.5-36.0 qlwe=972) POCT-GLUCOSE [id number] 21:55:00 Test Item Value Reference Range Comments POC-GLUCOSE METER (BEAKER) 150 mg/dL 70-110 TESTED AT [address] (test mayl=8739) [place] [address] [id number] 18:25:00 Test Item Value Reference Range Comments PARTIAL THROMBOPLASTIN TIME (BEAKER) (test 71.2 seconds 22.5-36.0 wwgi=823) POCT-GLUCOSE [id number] 13:45:00 Test Item Value Reference Range Comments POC-GLUCOSE METER (BEAKER) 375 mg/dL 70-110 Notified LAURYN PÉREZ/TESTED AT [facility] (test ykkp=4930) [address] [place] [address] [id number] 10:26:00 Test Item Value Reference Range Comments PARTIAL THROMBOPLASTIN TIME (BEAKER) (test 94.0 seconds 22.5-36.0 lrik=769) While on warfarin.PROTHROMBIN TIME/[id number] 10:24:00 Test Item Value Reference Range Comments PROTIME (BEAKER) (test mztf=385) 19.3 seconds 11.7-14.7 INR (BEAKER) (test qjli=944) 1.7 <=5.9 RECOMMENDED COUMADIN/WARFARIN INR THERAPY RANGESSTANDARD DOSE: 2.0 - 3.0 Includes: PROPHYLAXIS forvenous thrombosis, systemic embolization; TREATMENT for venous thrombosis and/or pulmonary embolus.HIGH RISK: Target INR is 2.5-3.5 for patients with mechanical heart valves.While on warfarin.POCT-GLUCOSE [id number] 08:36:00 Test Item Value Reference Range Comments POC-GLUCOSE METER (BEAKER) 124 mg/dL 70-110 TESTED AT [address] (test qpjc=6051) [place] [address] RAD, CHEST, 1 VIEW, NON [id number] 08:19:00Reason for exam:->Post opShould this be performed [...] Lisa Verified Date/Time: 01/03/2019 08:19:51 Reading Location: [facility] [address] C[address]V Neuro Reading Room 08: 19 [id number] 03:31:00 Test Item Value Reference Range Comments PARTIAL THROMBOPLASTIN TIME (BEAKER) (test 64.2 seconds 22.5-36.0 abnt=874) BASIC METABOLIC [id number] 03:21:00 Test Item Value Reference Range Comments SODIUM (BEAKER) (test 132 meq/L 136-145 ziol=711) POTASSIUM (BEAKER) (test 3.9 meq/L 3.5-5.1 rfte=462) CHLORIDE (BEAKER) (test 95 meq/L 98-107 yhyn=747) CO2 (BEAKER) (test 28 meq/L 22-29 ayda=202) BLOOD UREA NITROGEN 37 mg/dL 7-21 (BEAKER) (test dvll=536) CREATININE (BEAKER) (test 4.74 mg/dL 0.57-1.25 zvaj=305) GLUCOSE RANDOM (BEAKER) 125 mg/dL 70-105 (test jkyg=046) CALCIUM (BEAKER) (test 9.2 mg/dL 8.4-10.2 zddk=688) EGFR (BEAKER) (test 15 mL/min/1.73 sq m ESTIMATED GFR IS NOT qjsw=1469) ACCURATE CREATININE CLEARANCE IN PREDICTING GLOMERULAR FILTRATION RATE. ESTIMATED GFR IS NOT APPLICABLE FOR DIALYSIS PATIENTS. CBC (HEMOGRAM ONLY)2019-01-03 02:58:00 Test Item Value Reference Range Comments WHITE BLOOD CELL COUNT (BEAKER) (test uqvr=622) 10.8 K/ L 3.5-10.5 RED BLOOD CELL COUNT (BEAKER) (test wnpv=289) 2.61 M/ L 4.63-6.08 HEMOGLOBIN (BEAKER) (test mxbr=323) 8.2 GM/DL 13.7-17.5 HEMATOCRIT (BEAKER) (test wjyd=895) 26.9 % 40.1-51.0 MEAN CORPUSCULAR VOLUME (BEAKER) (test rtgs=894) 103.1 fL 79.0-92.2 MEAN CORPUSCULAR HEMOGLOBIN (BEAKER) (test 31.4 pg 25.7-32.2 kukt=734) MEAN CORPUSCULAR HEMOGLOBIN CONC (BEAKER) (test 30.5 GM/DL 32.3-36.5 bjzo=591) RED CELL DISTRIBUTION WIDTH (BEAKER) (test 16.1 % 11.6-14.4 omzw=383) PLATELET COUNT (BEAKER) (test rsiz=437) 167 K/CU MM 150-450 MEAN PLATELET VOLUME (BEAKER) (test cexr=322) 8.7 fL 9.4-12.4 NUCLEATED RED BLOOD CELLS (BEAKER) (test 1 /100 WBC 0-0 awdf=732) POCT-GLUCOSE [id number] 22:54:00 Test Item Value Reference Range Comments POC-GLUCOSE METER (BEAKER) 206 mg/dL 70-110 TESTED AT [address] (test trlh=6854) [place] [address] [id number] 19:36:00 Test Item Value Reference Range Comments PARTIAL THROMBOPLASTIN TIME (BEAKER) (test 79.3 seconds 22.5-36.0 ptfj=969) POCT-GLUCOSE [id number] 17:59:00 Test Item Value Reference Range Comments POC-GLUCOSE METER (BEAKER) 186 mg/dL 70-110 TESTED AT [address] (test oqao=3392) [place] [address] POCT-GLUCOSE [id number] 13:54:00 Test Item Value Reference Range Comments POC-GLUCOSE METER (BEAKER) 139 mg/dL 70-110 TESTED AT [address] (test btdd=3135) [place] [address] POCT-GLUCOSE [id number] 13:05:00 Test Item Value Reference Range Comments POC-GLUCOSE METER (BEAKER) 163 mg/dL 70-110 TESTED AT [address] (test scuy=4361) [place] [address] [id number] 12:49:00 Test Item Value Reference Range Comments PARTIAL THROMBOPLASTIN TIME (BEAKER) (test 64.9 seconds 22.5-36.0 rgwo=738) OCCULT BLOOD, [id number] 12:31:00 Test Item Value Reference Range Comments FECAL OCCULT BLOOD (BEAKER) (test zrhf=590) Negative Negative RAD, CHEST, 1 VIEW, NON [id number] 10:37:00Reason for exam:->Post opShould this be performed [...] IMPRESSION: No significant change. Signed: [facility] Verified Date/Time: 01/02/2019 10:37:35 Reading Location: [facility] Radiology Reading Room POCT-GLUCOSE [id number] 08:07:00 Test Item Value Reference Range Comments POC-GLUCOSE METER (BEAKER) 107 mg/dL 70-110 TESTED AT [facility] [address] [place] [address] (test iqqx=3051) [facility] [address] [id number] 04:48:00 Test Item Value Reference Range Comments PARTIAL THROMBOPLASTIN TIME (BEAKER) (test 106.0 seconds 22.5-36.0 zkai=723) While on warfarin.BASIC METABOLIC [id number] 04:48:00 Test Item Value Reference Range Comments SODIUM (BEAKER) (test 135 meq/L 136-145 jpxv=030) POTASSIUM (BEAKER) (test 4.0 meq/L 3.5-5.1 cvhb=255) CHLORIDE (BEAKER) (test 98 meq/L 98-107 bont=994) CO2 (BEAKER) (test 31 meq/L 22-29 axmy=243) BLOOD UREA NITROGEN 25 mg/dL 7-21 (BEAKER) (test bqds=541) CREATININE (BEAKER) (test 3.58 mg/dL 0.57-1.25 lafj=482) GLUCOSE RANDOM (BEAKER) 86 mg/dL 70-105 (test wfwn=239) CALCIUM (BEAKER) (test 9.1 mg/dL 8.4-10.2 ahnx=532) EGFR (BEAKER) (test 21 mL/min/1.73 sq m ESTIMATED GFR IS NOT rzfy=6668) ACCURATE CREATININE CLEARANCE IN PREDICTING GLOMERULAR FILTRATION RATE. ESTIMATED GFR IS NOT APPLICABLE FOR DIALYSIS PATIENTS. PROTHROMBIN [id number] 04:39:00 Test Item Value Reference Range Comments PROTIME (BEAKER) (test tfwc=287) 19.4 seconds 11.7-14.7 INR (BEAKER) (test fnbt=226) 1.7 <=5.9 RECOMMENDED COUMADIN/WARFARIN INR THERAPY RANGESSTANDARD DOSE: 2.0 - 3.0 Includes: PROPHYLAXIS forvenous thrombosis, systemic embolization; TREATMENT for venous thrombosis and/or pulmonary embolus.HIGH RISK: Target INR is 2.5-3.5 for patients with mechanical heart valves.While on warfarin.CBC (HEMOGRAM ONLY) 2019-01-02 04:30:00 Test Item Value Reference Range Comments WHITE BLOOD CELL COUNT (BEAKER) (test dkvt=436) 12.4 K/ L 3.5-10.5 RED BLOOD CELL COUNT (BEAKER) (test odxn=438) 2.51 M/ L 4.63-6.08 HEMOGLOBIN (BEAKER) (test uwki=720) 8.2 GM/DL 13.7-17.5 HEMATOCRIT (BEAKER) (test etef=934) 26.0 % 40.1-51.0 MEAN CORPUSCULAR VOLUME (BEAKER) (test evvb=947) 103.6 fL 79.0-92.2 MEAN CORPUSCULAR HEMOGLOBIN (BEAKER) (test 32.7 pg 25.7-32.2 iztv=943) MEAN CORPUSCULAR HEMOGLOBIN CONC (BEAKER) (test 31.5 GM/DL 32.3-36.5 pmyc=615) RED CELL DISTRIBUTION WIDTH (BEAKER) (test 16.5 % 11.6-14.4 wmyu=441) PLATELET COUNT (BEAKER) (test vfxj=853) 161 K/CU MM 150-450 MEAN PLATELET VOLUME (BEAKER) (test vlpl=197) 8.9 fL 9.4-12.4 NUCLEATED RED BLOOD CELLS (BEAKER) (test 0 /100 WBC 0-0 ztep=927) POCT-GLUCOSE [id number] 22:17:00 Test Item Value Reference Range Comments POC-GLUCOSE METER (BEAKER) 117 mg/dL 70-110 TESTED AT [address] (test pigi=1042) [place] [address] RAD, CHEST, 1 VIEW, NON [id number] 19:40:00Reason for exam:->Post opShould this be performed [...] clear. IMPRESSION: No interval change. Signed: Edenilson Bloom Verified Date/Time: 2018 19:40:01 Reading Location: [address] Consult Reading Room POCT-GLUCOSE [id number] 18:22:00 Test Item Value Reference Range Comments POC-GLUCOSE METER (BEAKER) 159 mg/dL 70-110 TESTED AT [address] (test ukyd=5021) [place] [id number] POCT-GLUCOSE [id number] 14:12:00 Test Item Value Reference Range Comments POC-GLUCOSE METER (BEAKER) 135 mg/dL 70-110 TESTED AT [address] (test jbug=3196) [place] [id number] HEPATITIS B SURFACE [id number] 11:52:00 Test Item Value Reference Range Comments HEPATITIS B SURFACE ANTIGEN (2) (BEAKER) (test Nonreactive Nonreactive fzyq=4623) POCT-GLUCOSE [id number] 08:40:00 Test Item Value Reference Range Comments POC-GLUCOSE METER (BEAKER) 85 mg/dL 70-110 TESTED AT [facility] [address] (test uoan=8241) [facility] [address] BASIC METABOLIC [id number] 04:17:00 Test Item Value Reference Range Comments SODIUM (BEAKER) (test 132 meq/L 136-145 zuac=919) POTASSIUM (BEAKER) (test 4.2 meq/L 3.5-5.1 Specimen slightly ujpq=154) hemolyzed CHLORIDE (BEAKER) (test 95 meq/L 98-107 gxaw=273) CO2 (BEAKER) (test 30 meq/L 22-29 kxhx=702) BLOOD UREA NITROGEN 41 mg/dL 7-21 (BEAKER) (test ohpb=155) CREATININE (BEAKER) (test 4.98 mg/dL 0.57-1.25 Specimen slightly exgz=401) hemolyzed GLUCOSE RANDOM (BEAKER) 96 mg/dL 70-105 (test fefq=807) CALCIUM (BEAKER) (test 9.2 mg/dL 8.4-10.2 wjlj=514) EGFR (BEAKER) (test 14 mL/min/1.73 sq m ESTIMATED GFR IS NOT yflm=8826) ACCURATE CREATININE CLEARANCE IN PREDICTING GLOMERULAR FILTRATION RATE. ESTIMATED GFR IS NOT APPLICABLE FOR DIALYSIS PATIENTS. [id number] 03:40:00 Test Item Value Reference Range Comments PARTIAL THROMBOPLASTIN TIME (BEAKER) (test 84.1 seconds 22.5-36.0 ddec=871) While on warfarin.PROTHROMBIN [id number] 03:39:00 Test Item Value Reference Range Comments PROTIME (BEAKER) (test rscx=098) 19.1 seconds 11.7-14.7 INR (BEAKER) (test ciiu=842) 1.7 <=5.9 RECOMMENDED COUMADIN/WARFARIN INR THERAPY RANGESSTANDARD DOSE: 2.0 - 3.0 Includes: PROPHYLAXIS forvenous thrombosis, systemic embolization; TREATMENT for venous thrombosis and/or pulmonary embolus.HIGH RISK: Target INR is 2.5-3.5 for patients with mechanical heart valves.While on warfarin.CBC (HEMOGRAM ONLY) 2019-01-01 03:29:00 Test Item Value Reference Range Comments WHITE BLOOD CELL COUNT (BEAKER) (test vxgv=750) 13.2 K/ L 3.5-10.5 RED BLOOD CELL COUNT (BEAKER) (test famr=743) 2.60 M/ L 4.63-6.08 HEMOGLOBIN (BEAKER) (test bvtx=276) 8.3 GM/DL 13.7-17.5 HEMATOCRIT (BEAKER) (test wmwv=592) 26.3 % 40.1-51.0 MEAN CORPUSCULAR VOLUME (BEAKER) (test mzsm=797) 101.2 fL 79.0-92.2 MEAN CORPUSCULAR HEMOGLOBIN (BEAKER) (test 31.9 pg 25.7-32.2 rznq=332) MEAN CORPUSCULAR HEMOGLOBIN CONC (BEAKER) (test 31.6 GM/DL 32.3-36.5 vllu=795) RED CELL DISTRIBUTION WIDTH (BEAKER) (test 15.9 % 11.6-14.4 fzzy=260) PLATELET COUNT (BEAKER) (test kwmj=290) 186 K/CU MM 150-450 MEAN PLATELET VOLUME (BEAKER) (test wclo=725) 9.0 fL 9.4-12.4 NUCLEATED RED BLOOD CELLS (BEAKER) (test 0 /100 WBC 0-0 tijr=259) POCT-GLUCOSE [id number] 22:08:00 Test Item Value Reference Range Comments POC-GLUCOSE METER (BEAKER) 194 mg/dL 70-110 TESTED AT [address] (test zblq=2016) [place] [id number] POCT-GLUCOSE [id number] 22:03:00 Test Item Value Reference Range Comments POC-GLUCOSE METER (BEAKER) 203 mg/dL 70-110 TESTED AT [address] (test vnyx=1338) [place] [address] POCT-GLUCOSE [id number] 21:42:00 Test Item Value Reference Range Comments POC-GLUCOSE METER (BEAKER) 42 mg/dL 70-110 TESTED AT [address] (test mtic=7459) [place] [address] [id number] 21:35:00 Test Item Value Reference Range Comments PARTIAL THROMBOPLASTIN TIME (BEAKER) (test 80.4 seconds 22.5-36.0 ecfg=351) POCT-GLUCOSE [id number] 18:03:00 Test Item Value Reference Range Comments POC-GLUCOSE METER (BEAKER) 144 mg/dL 70-110 TESTED AT [facility] [address] (test wcqy=9732) [facility] [address] TISSUE [id number] 16:33:00Surgical Pathology Report Case: [id number] Authorizing Provider: ZacharyEnmanuel Collected: 12/26/2018 1537 MD Liban OrderingLocation: [facility] Received: 2018 0814 Service Pathologist: Brigida Parks [...] stains. GMSImmunohistochemistry technical testing was performed at [facility], Pathology Laboratory where it was developed and [...] toperform high complexity clinical laboratory testing.CPT CODE: [id number] electronically signed byBrigida Parks MD on 12/31/2018 [...] ARE NEGATIVE Signing Pathologist Direct Phone Line: [phone] signed by Brigida Parks MD on 12/30/2018 at 6:43 PMPreliminary result electronically signed by Brigida Parks MD on 12/29/2018 at 4:54 [id number] X 2; 40209; 27995; 62635 X 2Upper endoscopy, biopsyPreoperative and postoperative diagnosis: [...] AND CMVImmunohistochemistry technical testing was performed at [facility], Pathology Laboratory where it was developed and [...] qualified toperform high complexity clinical laboratory testing.POCT-GLUCOSE [id number] 13:57:00 Test Item Value Reference Range Comments POC-GLUCOSE METER (BEAKER) 178 mg/dL 70-110 TESTED AT [facility] [address] [facility] (test fdox=7132) [facility] [address] [id number] 12:54:00 Test Item Value Reference Range Comments PARTIAL THROMBOPLASTIN TIME (BEAKER) (test 69.4 seconds 22.5-36.0 ixbk=441) RAD, CHEST, 1 VIEW, NON [id number] 09:26:00Reason for exam:->Post opShould this be performed [...] MDReport Verified Date/Time: 12/31/2018 09:26:31 Reading Location: [facility] Radiology Reading Room POCT-GLUCOSE [id number] 09:01:00 Test Item Value Reference Range Comments POC-GLUCOSE METER (BEAKER) 162 mg/dL 70-110 TESTED AT [facility] [address] [facility] (test yhww=5100) [facility] [address] BASIC METABOLIC [id number] 06:50:00 Test Item Value Reference Range Comments SODIUM (BEAKER) (test 132 meq/L 136-145 psir=650) POTASSIUM (BEAKER) (test 3.5 meq/L 3.5-5.1 bvzk=399) CHLORIDE (BEAKER) (test 96 meq/L 98-107 qeil=069) CO2 (BEAKER) (test 30 meq/L 22-29 ysfc=973) BLOOD UREA NITROGEN 26 mg/dL 7-21 (BEAKER) (test jzqo=974) CREATININE (BEAKER) (test 3.97 mg/dL 0.57-1.25 mrls=186) GLUCOSE RANDOM (BEAKER) 151 mg/dL 70-105 (test cwfu=138) CALCIUM (BEAKER) (test 8.5 mg/dL 8.4-10.2 uiwn=270) EGFR (BEAKER) (test 19 mL/min/1.73 sq m ESTIMATED GFR IS NOT gnrr=3423) ACCURATE CREATININE CLEARANCE IN PREDICTING GLOMERULAR FILTRATION RATE. ESTIMATED GFR IS NOT APPLICABLE FOR DIALYSIS PATIENTS. PROTHROMBIN TIME/[id number] 06:38:00 Test Item Value Reference Range Comments PROTIME (BEAKER) (test xpjv=929) 19.1 seconds 11.7-14.7 INR (BEAKER) (test ezcb=367) 1.7 <=5.9 RECOMMENDED COUMADIN/WARFARIN INR THERAPY RANGESSTANDARD DOSE: 2.0 - 3.0 Includes: PROPHYLAXIS forvenous thrombosis, systemic embolization; TREATMENT for venous thrombosis and/or pulmonary embolus.HIGH RISK: Target INR is 2.5-3.5 for patients with mechanical heart valves.While on warfarin.[id number] 06:37 :00 Test Item Value Reference Range Comments PARTIAL THROMBOPLASTIN TIME (BEAKER) (test 85.3 seconds 22.5-36.0 nwst=017) CBC (HEMOGRAM ONLY)2018-12-31 06:20:00 Test Item Value Reference Range Comments WHITE BLOOD CELL COUNT (BEAKER) (test brfq=952) 11.9 K/ L 3.5-10.5 RED BLOOD CELL COUNT (BEAKER) (test llgn=724) 2.58 M/ L 4.63-6.08 HEMOGLOBIN (BEAKER) (test fddm=766) 8.3 GM/DL 13.7-17.5 HEMATOCRIT (BEAKER) (test apmb=401) 26.2 % 40.1-51.0 MEAN CORPUSCULAR VOLUME (BEAKER) (test idlv=412) 101.6 fL 79.0-92.2 MEAN CORPUSCULAR HEMOGLOBIN (BEAKER) (test 32.2 pg 25.7-32.2 svty=343) MEAN CORPUSCULAR HEMOGLOBIN CONC (BEAKER) (test 31.7 GM/DL 32.3-36.5 qtbs=067) RED CELL DISTRIBUTION WIDTH (BEAKER) (test 15.9 % 11.6-14.4 dfmc=112) PLATELET COUNT (BEAKER) (test ujih=292) 156 K/CU MM 150-450 MEAN PLATELET VOLUME (BEAKER) (test rggh=064) 8.7 fL 9.4-12.4 NUCLEATED RED BLOOD CELLS (BEAKER) (test 0 /100 WBC 0-0 uqws=494) POCT-GLUCOSE [id number] 00:45:00 Test Item Value Reference Range Comments POC-GLUCOSE METER (BEAKER) 124 mg/dL 70-110 TESTED AT [facility] [address] [facility] (test bypr=5834) [facility] [address] [id number] 19:14:00 Test Item Value Reference Range Comments PARTIAL THROMBOPLASTIN TIME (BEAKER) (test 57.8 seconds 22.5-36.0 telf=663) POCT-GLUCOSE [id number] 17:53:00 Test Item Value Reference Range Comments POC-GLUCOSE METER (BEAKER) 133 mg/dL 70-110 TESTED AT [address] (test xwry=6594) [place] [address] POCT-GLUCOSE [id number] 13:19:00 Test Item Value Reference Range Comments POC-GLUCOSE METER (BEAKER) 147 mg/dL 70-110 TESTED AT [address] (test osjh=0683) [place] [address] [id number] 12:43:00 Test Item Value Reference Range Comments PARTIAL THROMBOPLASTIN TIME (BEAKER) (test 57.0 seconds 22.5-36.0 xeqw=084) [id number] 10:17:00 Test Item Value Reference Range Comments PARTIAL THROMBOPLASTIN TIME (BEAKER) (test 134.5 seconds 22.5-36.0 ghzb=391) POCT-GLUCOSE [id number] 07:43:00 Test Item Value Reference Range Comments POC-GLUCOSE METER (BEAKER) 107 mg/dL 70-110 TESTED AT [address] (test zuxs=4179) [place] [address] BASIC METABOLIC [id number] 06:46:00 Test Item Value Reference Range Comments SODIUM (BEAKER) (test 129 meq/L 136-145 lrcb=744) POTASSIUM (BEAKER) (test 4.1 meq/L 3.5-5.1 cpdz=701) CHLORIDE (BEAKER) (test 93 meq/L 98-107 hvrr=843) CO2 (BEAKER) (test 28 meq/L 22-29 cnwb=982) BLOOD UREA NITROGEN 43 mg/dL 7-21 (BEAKER) (test jiki=574) CREATININE (BEAKER) (test 6.30 mg/dL 0.57-1.25 jgwl=069) GLUCOSE RANDOM (BEAKER) 110 mg/dL 70-105 (test xlpz=298) CALCIUM (BEAKER) (test 8.5 mg/dL 8.4-10.2 psbf=859) EGFR (BEAKER) (test 11 mL/min/1.73 sq m ESTIMATED GFR IS NOT jwfh=1931) ACCURATE CREATININE CLEARANCE IN PREDICTING GLOMERULAR FILTRATION RATE. ESTIMATED GFR IS NOT APPLICABLE FOR DIALYSIS PATIENTS. RAD, CHEST, 1 VIEW, NON [id number] 06:25:00Reason for exam:->Post opShould this be performed [...] Lisa Verified Date/Time: 12/30/2018 06:25:51 Reading Location: [address] Neuro Reading Room PROTHROMBIN TIME/[id number] 06:06:00 Test Item Value Reference Range Comments PROTIME (BEAKER) (test anwk=818) 19.5 seconds 11.7-14.7 INR (BEAKER) (test djlu=519) 1.8 <=5.9 RECOMMENDED COUMADIN/WARFARIN INR THERAPY RANGESSTANDARD DOSE: 2.0 - 3.0 Includes: PROPHYLAXIS forvenous thrombosis, systemic embolization; TREATMENT for venous thrombosis and/or pulmonary embolus.HIGH RISK: Target INR is 2.5-3.5 for patients with mechanical heart valves.While on warfarin.CBC (HEMOGRAM ONLY) 2018-12-30 06:00:00 Test Item Value Reference Range Comments WHITE BLOOD CELL COUNT (BEAKER) (test keki=683) 11.4 K/ L 3.5-10.5 RED BLOOD CELL COUNT (BEAKER) (test hcqt=006) 2.62 M/ L 4.63-6.08 HEMOGLOBIN (BEAKER) (test znlb=186) 8.4 GM/DL 13.7-17.5 HEMATOCRIT (BEAKER) (test xdwb=794) 26.1 % 40.1-51.0 MEAN CORPUSCULAR VOLUME (BEAKER) (test yqzq=356) 99.6 fL 79.0-92.2 MEAN CORPUSCULAR HEMOGLOBIN (BEAKER) (test 32.1 pg 25.7-32.2 inqr=838) MEAN CORPUSCULAR HEMOGLOBIN CONC (BEAKER) (test 32.2 GM/DL 32.3-36.5 ksdr=796) RED CELL DISTRIBUTION WIDTH (BEAKER) (test 15.5 % 11.6-14.4 cwuf=193) PLATELET COUNT (BEAKER) (test eeet=206) 139 K/CU MM 150-450 MEAN PLATELET VOLUME (BEAKER) (test fimp=130) 9.1 fL 9.4-12.4 NUCLEATED RED BLOOD CELLS (BEAKER) (test 0 /100 WBC 0-0 nuen=285) POCT-GLUCOSE [id number] 22:19:00 Test Item Value Reference Range Comments POC-GLUCOSE METER (BEAKER) 179 mg/dL 70-110 TESTED AT [address] (test olcn=2069) [place] [id number] POCT-GLUCOSE [id number] 17:39:00 Test Item Value Reference Range Comments POC-GLUCOSE METER (BEAKER) 181 mg/dL 70-110 TESTED AT [address] (test symg=9933) [facility] [address] POCT-GLUCOSE [id number] 13:14:00 Test Item Value Reference Range Comments POC-GLUCOSE METER (BEAKER) 102 mg/dL 70-110 TESTED AT [address] (test clrm=5587) [facility] [address] RAD, CHEST, 1 VIEW, NON [id number] 08:56:00Reason for exam:->Post opShould this be performed [...] Verified Date/Time : 12/29/2018 08:56:32 Reading Location: [facility] Radiology Reading Room Electronically signed by: EDENILSON BLOOM M.D.on 12/29/2018 08:56 AMPOCT- GLUCOSE [id number] 07:53:00 Test Item Value Reference Range Comments POC-GLUCOSE METER (BEAKER) 135 mg/dL 70-110 TESTED AT [facility] [address] (test ppof=1101) [place] [address] [id number] 06:45:00 Test Item Value Reference Range Comments PARTIAL THROMBOPLASTIN TIME (BEAKER) (test 83.5 seconds 22.5-36.0 mvgo=918) While on warfarin.PROTHROMBIN TIME/[id number] 06:44:00 Test Item Value Reference Range Comments PROTIME (BEAKER) (test ydau=059) 17.1 seconds 11.7-14.7 INR (BEAKER) (test gukx=528) 1.5 <=5.9 RECOMMENDED COUMADIN/WARFARIN INR THERAPY RANGESSTANDARD DOSE: 2.0 - 3.0 Includes: PROPHYLAXIS forvenous thrombosis, systemic embolization; TREATMENT for venous thrombosis and/or pulmonary embolus.HIGH RISK: Target INR is 2.5-3.5 for patients with mechanical heart valves.While on warfarin.BASIC METABOLIC [id number] 05:56:00 Test Item Value Reference Range Comments SODIUM (BEAKER) (test 129 meq/L 136-145 nppk=378) POTASSIUM (BEAKER) (test 4.2 meq/L 3.5-5.1 dhas=092) CHLORIDE (BEAKER) (test 93 meq/L 98-107 oygn=422) CO2 (BEAKER) (test 29 meq/L 22-29 fkml=371) BLOOD UREA NITROGEN 31 mg/dL 7-21 (BEAKER) (test tpur=046) CREATININE (BEAKER) (test 5.18 mg/dL 0.57-1.25 gwyf=591) GLUCOSE RANDOM (BEAKER) 96 mg/dL 70-105 (test rzzc=669) CALCIUM (BEAKER) (test 8.3 mg/dL 8.4-10.2 pyab=980) EGFR (BEAKER) (test 14 mL/min/1.73 sq m ESTIMATED GFR IS NOT yuig=8395) ACCURATE CREATININE CLEARANCE IN PREDICTING GLOMERULAR FILTRATION RATE. ESTIMATED GFR IS NOT APPLICABLE FOR DIALYSIS PATIENTS. CBC (HEMOGRAM ONLY)2018-12-29 05:22:00 Test Item Value Reference Range Comments WHITE BLOOD CELL COUNT (BEAKER) (test ylfv=904) 12.0 K/ L 3.5-10.5 RED BLOOD CELL COUNT (BEAKER) (test oxbc=956) 2.66 M/ L 4.63-6.08 HEMOGLOBIN (BEAKER) (test bznb=909) 8.7 GM/DL 13.7-17.5 HEMATOCRIT (BEAKER) (test twzm=902) 26.6 % 40.1-51.0 MEAN CORPUSCULAR VOLUME (BEAKER) (test varj=421) 100.0 fL 79.0-92.2 MEAN CORPUSCULAR HEMOGLOBIN (BEAKER) (test 32.7 pg 25.7-32.2 yybn=958) MEAN CORPUSCULAR HEMOGLOBIN CONC (BEAKER) (test 32.7 GM/DL 32.3-36.5 xuyz=725) RED CELL DISTRIBUTION WIDTH (BEAKER) (test 15.6 % 11.6-14.4 dgqk=592) PLATELET COUNT (BEAKER) (test fcyd=363) 131 K/CU MM 150-450 MEAN PLATELET VOLUME (BEAKER) (test tbwf=636) 9.1 fL 9.4-12.4 NUCLEATED RED BLOOD CELLS (BEAKER) (test 0 /100 WBC 0-0 fems=372) [id number] 00:01:00 Test Item Value Reference Range Comments PARTIAL THROMBOPLASTIN TIME (BEAKER) (test 78.5 seconds 22.5-36.0 zmgj=468) POCT-GLUCOSE [id number] 21:26:00 Test Item Value Reference Range Comments POC-GLUCOSE METER (BEAKER) 139 mg/dL 70-110 TESTED AT [address] (test ujap=4854) [facility] [address] POCT-GLUCOSE [id number] 17:58:00 Test Item Value Reference Range Comments POC-GLUCOSE METER (BEAKER) 146 mg/dL 70-110 TESTED AT [address] (test hxei=3916) [facility] [address] [id number] 17:16:00 Test Item Value Reference Range Comments PARTIAL THROMBOPLASTIN TIME (BEAKER) (test 34.5 seconds 22.5-36.0 ibaw=395) Prior to initiating heparinPOCT-GLUCOSE [id number] 12:54:00 Test Item Value Reference Range Comments POC-GLUCOSE METER (BEAKER) 133 mg/dL 70-110 TESTED AT [facility] [address] (test cvhm=4088) [facility] [address] RAD, CHEST, 1 VIEW, NON [id number] 08:06:00Reason for exam:->Post opShould this be performed at the bedside?->YesFINAL REPORT Chest one view. Clinical history: Post op Comparison: 2018Discussion: A frontal chest is provided. Cardiomediastinal contours are unchanged. Lines and tubesare in stable position. Unchanged right-sided pleural-parenchymal opacities. Left lung is grossly clear. Vessels do not appear engorged. No pneumothorax. Signed: Dionicio Chery MDReport Verified Date/Time: 12/28/2018 08:06:07 Reading Location: [address] Neuro Reading Room BASIC METABOLIC [id number] 06:52:00 Test Item Value Reference Range Comments SODIUM (BEAKER) (test 130 meq/L 136-145 finv=798) POTASSIUM (BEAKER) (test 3.9 meq/L 3.5-5.1 dtum=423) CHLORIDE (BEAKER) (test 94 meq/L 98-107 lovw=590) CO2 (BEAKER) (test 29 meq/L 22-29 eqvq=056) BLOOD UREA NITROGEN 18 mg/dL 7-21 (BEAKER) (test odik=348) CREATININE (BEAKER) (test 3.73 mg/dL 0.57-1.25 lcuf=482) GLUCOSE RANDOM (BEAKER) 104 mg/dL 70-105 (test qhbn=838) CALCIUM (BEAKER) (test 8.7 mg/dL 8.4-10.2 fsox=269) EGFR (BEAKER) (test 20 mL/min/1.73 sq m ESTIMATED GFR IS NOT zhvr=5263) ACCURATE CREATININE CLEARANCE IN PREDICTING GLOMERULAR FILTRATION RATE. ESTIMATED GFR IS NOT APPLICABLE FOR DIALYSIS PATIENTS. PROTHROMBIN TIME/[id number] 06:31:00 Test Item Value Reference Range Comments PROTIME (BEAKER) (test xlhc=782) 19.4 seconds 11.7-14.7 INR (BEAKER) (test vjcy=947) 1.7 <=5.9 RECOMMENDED COUMADIN/WARFARIN INR THERAPY RANGESSTANDARD DOSE: 2.0 - 3.0 Includes: PROPHYLAXIS forvenous thrombosis, systemic embolization; TREATMENT for venous thrombosis and/or pulmonary embolus.HIGH RISK: Target INR is 2.5-3.5 for patients with mechanical heart valves.CBC (HEMOGRAM ONLY)2018-12-28 06:09:00 Test Item Value Reference Range Comments WHITE BLOOD CELL COUNT (BEAKER) (test uxgp=160) 9.9 K/ L 3.5-10.5 RED BLOOD CELL COUNT (BEAKER) (test pnyo=002) 2.79 M/ L 4.63-6.08 HEMOGLOBIN (BEAKER) (test vfpk=314) 8.9 GM/DL 13.7-17.5 HEMATOCRIT (BEAKER) (test fxmt=068) 28.2 % 40.1-51.0 MEAN CORPUSCULAR VOLUME (BEAKER) (test umnf=428) 101.1 fL 79.0-92.2 MEAN CORPUSCULAR HEMOGLOBIN (BEAKER) (test 31.9 pg 25.7-32.2 kwvu=427) MEAN CORPUSCULAR HEMOGLOBIN CONC (BEAKER) (test 31.6 GM/DL 32.3-36.5 asnj=936) RED CELL DISTRIBUTION WIDTH (BEAKER) (test 15.9 % 11.6-14.4 xraj=738) PLATELET COUNT (BEAKER) (test ttuq=136) 110 K/CU MM 150-450 MEAN PLATELET VOLUME (BEAKER) (test xbma=081) 9.3 fL 9.4-12.4 NUCLEATED RED BLOOD CELLS (BEAKER) (test 0 /100 WBC 0-0 hbin=087) POCT-GLUCOSE [id number] 21:41:00 Test Item Value Reference Range Comments POC-GLUCOSE METER (BEAKER) 163 mg/dL 70-110 TESTED AT [facility] [address] [facility] (test qgkn=9246) [facility] [address] POCT-GLUCOSE [id number] 17:23:00 Test Item Value Reference Range Comments POC-GLUCOSE METER (BEAKER) 119 mg/dL 70-110 TESTED AT [facility] [address] (test wcxk=3852) [facility] [address] RAD, CHEST, 1 VIEW, NON [id number] 14:49:00Reason for exam:->Post opShould this be performed [...] MDReport Verified Date/Time: 12/27/2018 14:49:48 Reading Location: [address] Ortho Consult Reading Room ANG, NON-TUNNELED CATH > 5 Y.O. [id number] 14:17:00Reason for exam:->Central line placement, poor access, [...] guide wire was advanced centrally. A 7 [place] 20 cm triple lumen catheter was advanced [...] Sykes Verified Date/Time: 12/27/2018 14:17:02 Reading Location: [facility] [address] Angio Body Reading Room Electronically signed by: BONNY SYKES M.D. on 02:17 [id number] 13:44:00 Test Item Value Reference Range Comments PARTIAL THROMBOPLASTIN TIME (BEAKER) (test 44.3 seconds 22.5-36.0 haqk=357) Prior to initiating heparinPOCT-GLUCOSE [id number] 13:27:00 Test Item Value Reference Range Comments POC-GLUCOSE METER (BEAKER) 127 mg/dL 70-110 TESTED AT [address] (test rxxl=5399) [place] [id number] POCT-GLUCOSE [id number] 08:58:00 Test Item Value Reference Range Comments POC-GLUCOSE METER (BEAKER) 79 mg/dL 70-110 TESTED AT [address] (test vghx=1682) [place] [id number] BASIC METABOLIC [id number] 07:09:00 Test Item Value Reference Range Comments SODIUM (BEAKER) (test 135 meq/L 136-145 kipe=450) POTASSIUM (BEAKER) (test 3.8 meq/L 3.5-5.1 gpvc=420) CHLORIDE (BEAKER) (test 96 meq/L 98-107 sgqh=465) CO2 (BEAKER) (test 35 meq/L 22-29 lyln=822) BLOOD UREA NITROGEN 18 mg/dL 7-21 (BEAKER) (test mwnj=092) CREATININE (BEAKER) (test 4.91 mg/dL 0.57-1.25 udmk=931) GLUCOSE RANDOM (BEAKER) 81 mg/dL 70-105 (test oiko=568) CALCIUM (BEAKER) (test 8.5 mg/dL 8.4-10.2 hyyz=263) EGFR (BEAKER) (test 15 mL/min/1.73 sq m ESTIMATED GFR IS NOT pixm=4212) ACCURATE CREATININE CLEARANCE IN PREDICTING GLOMERULAR FILTRATION RATE. ESTIMATED GFR IS NOT APPLICABLE FOR DIALYSIS PATIENTS. PROTHROMBIN TIME/[id number] 06:52:00 Test Item Value Reference Range Comments PROTIME (BEAKER) (test afun=014) 23.3 seconds 11.7-14.7 INR (BEAKER) (test swgn=535) 2.0 <=5.9 RECOMMENDED COUMADIN/WARFARIN INR THERAPY RANGESSTANDARD DOSE: 2.0 - 3.0 Includes: PROPHYLAXIS forvenous thrombosis, systemic embolization; TREATMENT for venous thrombosis and/or pulmonary embolus.HIGH RISK: Target INR is 2.5-3.5 for patients with mechanical heart valves.CBC (HEMOGRAM ONLY)2018-12-27 06:28:00 Test Item Value Reference Range Comments WHITE BLOOD CELL COUNT (BEAKER) (test vhlx=024) 7.1 K/ L 3.5-10.5 RED BLOOD CELL COUNT (BEAKER) (test hgfe=423) 2.16 M/ L 4.63-6.08 HEMOGLOBIN (BEAKER) (test jubn=601) 6.9 GM/DL 13.7-17.5 HEMATOCRIT (BEAKER) (test vkco=570) 22.5 % 40.1-51.0 MEAN CORPUSCULAR VOLUME (BEAKER) (test wagm=959) 104.2 fL 79.0-92.2 MEAN CORPUSCULAR HEMOGLOBIN (BEAKER) (test 31.9 pg 25.7-32.2 pccs=635) MEAN CORPUSCULAR HEMOGLOBIN CONC (BEAKER) (test 30.7 GM/DL 32.3-36.5 bvuq=498) RED CELL DISTRIBUTION WIDTH (BEAKER) (test 15.0 % 11.6-14.4 benp=382) PLATELET COUNT (BEAKER) (test nmjl=938) 90 K/CU MM 150-450 MEAN PLATELET VOLUME (BEAKER) (test rsad=992) 9.1 fL 9.4-12.4 NUCLEATED RED BLOOD CELLS (BEAKER) (test 0 /100 WBC 0-0 quwt=291) POCT-GLUCOSE [id number] 23:54:00 Test Item Value Reference Range Comments POC-GLUCOSE METER (BEAKER) 73 mg/dL 70-110 TESTED AT [address] (test dmxk=2809) [facility] [address] POCT-GLUCOSE [id number] 16:02:00 Test Item Value Reference Range Comments POC-GLUCOSE METER (BEAKER) 108 mg/dL 70-110 TESTED AT [address] (test otts=9988) [facility] [address] POCT-GLUCOSE [id number] 15:24:00 Test Item Value Reference Range Comments POC-GLUCOSE METER (BEAKER) 74 mg/dL 70-110 TESTED AT [address] (test aile=3705) [facility] [address] POCT-GLUCOSE [id number] 10:29:00 Test Item Value Reference Range Comments POC-GLUCOSE METER (BEAKER) 88 mg/dL 70-110 TESTED AT [address] (test sdii=9568) [facility] [address] RAD, CHEST, 1 VIEW, NON [id number] 07:33:00Reason for exam:->Post opShould this be performed [...] No significant change. Signed: Sarah Beth Mejia [facility] Verified Date/Time: 2018 07:33:38 Reading Location: [facility] Radiology Reading Room BASIC METABOLIC [id number] 06:42:00 Test Item Value Reference Range Comments SODIUM (BEAKER) (test 137 meq/L 136-145 fozw=398) POTASSIUM (BEAKER) (test 3.9 meq/L 3.5-5.1 myhl=284) CHLORIDE (BEAKER) (test 98 meq/L 98-107 ofrx=619) CO2 (BEAKER) (test 34 meq/L 22-29 xqgh=200) BLOOD UREA NITROGEN 12 mg/dL 7-21 (BEAKER) (test dwqu=985) CREATININE (BEAKER) (test 3.18 mg/dL 0.57-1.25 sqly=164) GLUCOSE RANDOM (BEAKER) 89 mg/dL 70-105 (test lpuo=255) CALCIUM (BEAKER) (test 8.9 mg/dL 8.4-10.2 vjom=832) EGFR (BEAKER) (test 24 mL/min/1.73 sq m ESTIMATED GFR IS NOT sfme=5995) ACCURATE CREATININE CLEARANCE IN PREDICTING GLOMERULAR FILTRATION RATE. ESTIMATED GFR IS NOT APPLICABLE FOR DIALYSIS PATIENTS. CBC (HEMOGRAM ONLY)2018-12-26 06:05:00 Test Item Value Reference Range Comments WHITE BLOOD CELL COUNT (BEAKER) (test ekkd=305) 6.3 K/ L 3.5-10.5 RED BLOOD CELL COUNT (BEAKER) (test bkax=306) 2.25 M/ L 4.63-6.08 HEMOGLOBIN (BEAKER) (test fxfm=161) 7.4 GM/DL 13.7-17.5 HEMATOCRIT (BEAKER) (test lakb=655) 23.1 % 40.1-51.0 MEAN CORPUSCULAR VOLUME (BEAKER) (test uosf=968) 102.7 fL 79.0-92.2 MEAN CORPUSCULAR HEMOGLOBIN (BEAKER) (test 32.9 pg 25.7-32.2 szwo=416) MEAN CORPUSCULAR HEMOGLOBIN CONC (BEAKER) (test 32.0 GM/DL 32.3-36.5 xgqt=904) RED CELL DISTRIBUTION WIDTH (BEAKER) (test 15.0 % 11.6-14.4 rzes=045) PLATELET COUNT (BEAKER) (test lvxm=320) 84 K/CU MM 150-450 MEAN PLATELET VOLUME (BEAKER) (test vbxx=417) 8.6 fL 9.4-12.4 NUCLEATED RED BLOOD CELLS (BEAKER) (test 1 /100 WBC 0-0 qwnr=562) PROTHROMBIN [id number] 05:44:00 Test Item Value Reference Range Comments PROTIME (BEAKER) (test inim=676) 24.4 seconds 11.7-14.7 INR (BEAKER) (test tden=353) 2.2 <=5.9 RECOMMENDED COUMADIN/WARFARIN INR THERAPY RANGESSTANDARD DOSE: 2.0 - 3.0 Includes: PROPHYLAXIS forvenous thrombosis, systemic embolization; TREATMENT for venous thrombosis and/or pulmonary embolus.HIGH RISK: Target INR is 2.5-3.5 for patients with mechanical heart valves.POCT-GLUCOSE [id number] 00:06:00 Test Item Value Reference Range Comments POC-GLUCOSE METER (BEAKER) 88 mg/dL 70-110 TESTED AT [facility] [address] [facility] (test glni=9747) [facility] [address] POCT-GLUCOSE [id number] 19:06:00 Test Item Value Reference Range Comments POC-GLUCOSE METER (BEAKER) 121 mg/dL 70-110 TESTED AT [address] (test okio=7609) [facility] [address] PROTHROMBIN [id number] 16:10:00 Test Item Value Reference Range Comments PROTIME (BEAKER) (test uaic=832) 30.1 seconds 11.7-14.7 INR (BEAKER) (test tfno=890) 2.9 <=5.9 RECOMMENDED COUMADIN/WARFARIN INR THERAPY RANGESSTANDARD DOSE: 2.0 - 3.0 Includes: PROPHYLAXIS forvenous thrombosis, systemic embolization; TREATMENT for venous thrombosis and/or pulmonary embolus.HIGH RISK: Target INR is 2.5-3.5 for patients with mechanical heart valves.BASIC METABOLIC [id number] 16:10: 00 Test Item Value Reference Range Comments SODIUM (BEAKER) (test 128 meq/L 136-145 hxfx=478) POTASSIUM (BEAKER) (test 4.9 meq/L 3.5-5.1 ntvj=340) CHLORIDE (BEAKER) (test 92 meq/L 98-107 lzoz=734) CO2 (BEAKER) (test 27 meq/L 22-29 gkio=413) BLOOD UREA NITROGEN 37 mg/dL 7-21 (BEAKER) (test wzkj=134) CREATININE (BEAKER) (test 5.70 mg/dL 0.57-1.25 bdut=373) GLUCOSE RANDOM (BEAKER) 108 mg/dL 70-105 (test mabk=101) CALCIUM (BEAKER) (test 8.8 mg/dL 8.4-10.2 wzpu=771) EGFR (BEAKER) (test 12 mL/min/1.73 sq m ESTIMATED GFR IS NOT wyak=6713) ACCURATE CREATININE CLEARANCE IN PREDICTING GLOMERULAR FILTRATION RATE. ESTIMATED GFR IS NOT APPLICABLE FOR DIALYSIS PATIENTS. [id number] 16:09:00 Test Item Value Reference Range Comments MAGNESIUM (BEAKER) (test nlrc=968) 1.7 mg/dL 1.6-2.6 CBC (HEMOGRAM ONLY)2018-12-25 16:01:00 Test Item Value Reference Range Comments WHITE BLOOD CELL COUNT (BEAKER) (test crdx=868) 6.0 K/ L 3.5-10.5 RED BLOOD CELL COUNT (BEAKER) (test mvar=637) 2.35 M/ L 4.63-6.08 HEMOGLOBIN (BEAKER) (test jruh=955) 7.7 GM/DL 13.7-17.5 HEMATOCRIT (BEAKER) (test ithj=250) 23.7 % 40.1-51.0 MEAN CORPUSCULAR VOLUME (BEAKER) (test hotd=463) 100.9 fL 79.0-92.2 MEAN CORPUSCULAR HEMOGLOBIN (BEAKER) (test 32.8 pg 25.7-32.2 kakk=718) MEAN CORPUSCULAR HEMOGLOBIN CONC (BEAKER) (test 32.5 GM/DL 32.3-36.5 gcfv=323) RED CELL DISTRIBUTION WIDTH (BEAKER) (test 14.7 % 11.6-14.4 cmve=951) PLATELET COUNT (BEAKER) (test ztpf=254) 90 K/CU MM 150-450 MEAN PLATELET VOLUME (BEAKER) (test vhly=372) 9.4 fL 9.4-12.4 NUCLEATED RED BLOOD CELLS (BEAKER) (test 1 /100 WBC 0-0 rmlb=967) POCT-GLUCOSE [id number] 08:03:00 Test Item Value Reference Range Comments POC-GLUCOSE METER (BEAKER) 89 mg/dL 70-110 TESTED AT [facility] [address] [facility] (test zrxr=5281) [facility] [address] RAD, CHEST, 1 VIEW, NON [id number] 07:46:00Reason for exam:->Post opShould this be performed at the bedside?->YesFINAL REPORT Chest one view. Clinical history: Post op Comparison: 2018Discussion: A frontal chest is provided. Cardiomediastinal contours are unchanged. Stable appearance of pleural-parenchymal opacity at the right mid to lower lung. There is a tiny right apical pneumothorax, unchanged. Probable trace left effusion. Signed: Dionicio Chery Verified Date/Time: 07:46:01 Reading Location: [facility] Radiology Reading Room RAD, ABDOMEN/KUB , 1 VIEW [id number] 07:25:00Reason for exam:->abdominal distentionShould this be performed [...] Chery Verified Date/Time: 12/25/2018 07:25:40 Reading Location: [facility] Radiology Reading Room POCT-GLUCOSE [id number] 22 :06:00 Test Item Value Reference Range Comments POC-GLUCOSE METER (BEAKER) 102 mg/dL 70-110 TESTED AT [address] (test bsbh=4014) [facility] [address] POCT-GLUCOSE [id number] 18:44:00 Test Item Value Reference Range Comments POC-GLUCOSE METER (BEAKER) 100 mg/dL 70-110 TESTED AT [address] (test wmkv=3896) [place] [id number] POCT-GLUCOSE [id number] 14:54:00 Test Item Value Reference Range Comments POC-GLUCOSE METER (BEAKER) 103 mg/dL 70-110 TESTED AT [address] (test ioqz=9270) [place] [id number] 08:07:00 Test Item Value Reference Range Comments FERRITIN (BEAKER) (test dbgb=291) 2044 ng/mL 5-275 POCT-GLUCOSE [id number] 07:57:00 Test Item Value Reference Range Comments POC-GLUCOSE METER (BEAKER) 76 mg/dL 70-110 TESTED AT [facility] [address] (test yhct=4678) [facility] [address] RAD, CHEST, 1 VIEW, NON [id number] 07:57:00Reason for exam:->Post opShould this be performed [...] MDReport Verified Date/Time: 12/24/2018 07:57:06 Reading Location: [facility] Radiology Reading Room CBC (HEMOGRAM ONLY) 07:23:00 Test Item Value Reference Range Comments WHITE BLOOD CELL COUNT (BEAKER) (test ooyp=704) 5.2 K/ L 3.5-10.5 RED BLOOD CELL COUNT (BEAKER) (test xajf=395) 2.35 M/ L 4.63-6.08 HEMOGLOBIN (BEAKER) (test opaw=595) 7.6 GM/DL 13.7-17.5 HEMATOCRIT (BEAKER) (test bouo=986) 24.6 % 40.1-51.0 MEAN CORPUSCULAR VOLUME (BEAKER) (test udnz=183) 104.7 fL 79.0-92.2 MEAN CORPUSCULAR HEMOGLOBIN (BEAKER) (test 32.3 pg 25.7-32.2 abyb=870) MEAN CORPUSCULAR HEMOGLOBIN CONC (BEAKER) (test 30.9 GM/DL 32.3-36.5 xkcn=819) RED CELL DISTRIBUTION WIDTH (BEAKER) (test 14.8 % 11.6-14.4 dtcx=954) PLATELET COUNT (BEAKER) (test dcav=406) 78 K/CU MM 150-450 MEAN PLATELET VOLUME (BEAKER) (test sktz=192) 9.8 fL 9.4-12.4 NUCLEATED RED BLOOD CELLS (BEAKER) (test 1 /100 WBC 0-0 tund=317) BASIC METABOLIC [id number] 07:14:00 Test Item Value Reference Range Comments SODIUM (BEAKER) (test 131 meq/L 136-145 wwyk=810) POTASSIUM (BEAKER) (test 4.9 meq/L 3.5-5.1 zoku=298) CHLORIDE (BEAKER) (test 93 meq/L 98-107 mlqd=943) CO2 (BEAKER) (test 34 meq/L 22-29 qtaa=415) BLOOD UREA NITROGEN 24 mg/dL 7-21 (BEAKER) (test covv=939) CREATININE (BEAKER) (test 4.11 mg/dL 0.57-1.25 chek=488) GLUCOSE RANDOM (BEAKER) 94 mg/dL 70-105 (test rkvm=018) CALCIUM (BEAKER) (test 8.8 mg/dL 8.4-10.2 rrqz=566) EGFR (BEAKER) (test 18 mL/min/1.73 sq m ESTIMATED GFR IS NOT xbuv=4707) ACCURATE CREATININE CLEARANCE IN PREDICTING GLOMERULAR FILTRATION RATE. ESTIMATED GFR IS NOT APPLICABLE FOR DIALYSIS PATIENTS. [id number] 07:08:00 Test Item Value Reference Range Comments MAGNESIUM (BEAKER) (test upzx=637) 1.8 mg/dL 1.6-2.6 IRON, TIBC, % SAT. (WITHOUT FERRITIN)2018-12-24 07:07:00 Test Item Value Reference Range Comments IRON (BEAKER) (test uyra=426) 35.0 ug/dL 40.0-160.0 TOTAL IRON BINDING CAPACITY (BEAKER) (test 150 ug/dL 250-450 kshe=090) IRON % SATURATION (2) (BEAKER) (test wxem=0377) 23 % 20-55 PROTHROMBIN [id number] 07:05:00 Test Item Value Reference Range Comments PROTIME (BEAKER) (test sffn=201) 38.7 seconds 11.7-14.7 INR (BEAKER) (test jaso=320) 3.9 <=5.9 RECOMMENDED COUMADIN/WARFARIN INR THERAPY RANGESSTANDARD DOSE: 2.0 - 3.0 Includes: PROPHYLAXIS forvenous thrombosis, systemic embolization; TREATMENT for venous thrombosis and/or pulmonary embolus.HIGH RISK: Target INR is 2.5-3.5 for patients with mechanical heart valves.POCT-GLUCOSE [id number] 00:26:00 Test Item Value Reference Range Comments POC-GLUCOSE METER (BEAKER) 86 mg/dL 70-110 TESTED AT [address] (test fedl=5989) [place] [id number] POCT-GLUCOSE [id number] 00:26:00 Test Item Value Reference Range Comments POC-GLUCOSE METER (BEAKER) 137 mg/dL 70-110 TESTED AT [address] (test gtgq=4035) [place] [address] POCT-GLUCOSE [id number] 16:07:00 Test Item Value Reference Range Comments POC-GLUCOSE METER (BEAKER) 72 mg/dL 70-110 TESTED AT [address] (test lylp=6977) [place] [address] POCT-GLUCOSE [id number] 16:07:00 Test Item Value Reference Range Comments POC-GLUCOSE METER (BEAKER) 61 mg/dL 70-110 TESTED AT [address] (test tywt=4493) [place] [address] POCT-GLUCOSE [id number] 11:27:00 Test Item Value Reference Range Comments POC-GLUCOSE METER (BEAKER) 82 mg/dL 70-110 TESTED AT [address] (test bsww=3212) [place] [address] POCT-GLUCOSE [id number] 10:32:00 Test Item Value Reference Range Comments POC-GLUCOSE METER (BEAKER) 43 mg/dL 70-110 TESTED AT [address] (test noer=8933) [place] [address] BASIC METABOLIC [id number] 07:28:00 Test Item Value Reference Range Comments SODIUM (BEAKER) (test 132 meq/L 136-145 okey=219) POTASSIUM (BEAKER) (test 5.4 meq/L 3.5-5.1 Specimen slightly mysm=420) hemolyzed CHLORIDE (BEAKER) (test 95 meq/L 98-107 euzj=738) CO2 (BEAKER) (test 24 meq/L 22-29 egfa=442) BLOOD UREA NITROGEN 52 mg/dL 7-21 (BEAKER) (test yzux=809) CREATININE (BEAKER) (test 5.91 mg/dL 0.57-1.25 Specimen slightly zucy=890) hemolyzed GLUCOSE RANDOM (BEAKER) 49 mg/dL 70-105 (test sfug=917) CALCIUM (BEAKER) (test 9.1 mg/dL 8.4-10.2 jjja=939) EGFR (BEAKER) (test 12 mL/min/1.73 sq m ESTIMATED GFR IS NOT hmit=5899) ACCURATE CREATININE CLEARANCE IN PREDICTING GLOMERULAR FILTRATION RATE. ESTIMATED GFR IS NOT APPLICABLE FOR DIALYSIS PATIENTS. [id number] 07:24:00 Test Item Value Reference Range Comments MAGNESIUM (BEAKER) (test 2.0 mg/dL 1.6-2.6 Specimen slightly hemolyzed zofa=234) [id number] 07:24:00 Test Item Value Reference Range Comments PHOSPHORUS (BEAKER) (test 4.4 mg/dL 2.3-4.7 Specimen slightly hemolyzed numo=579) PROTHROMBIN [id number] 07:20:00 Test Item Value Reference Range Comments PROTIME (BEAKER) (test htdp=104) 57.8 seconds 11.7-14.7 INR (BEAKER) (test xjms=454) 6.8 <=5.9 RECOMMENDED COUMADIN/WARFARIN INR THERAPY RANGESSTANDARD DOSE: 2.0 - 3.0 Includes: PROPHYLAXIS forvenous thrombosis, systemic embolization; TREATMENT for venous thrombosis and/or pulmonary embolus.HIGH RISK: Target INR is 2.5-3.5 for patients with mechanical heart valves.While on warfarin.CBC (HEMOGRAM ONLY) 2018-12-23 07:01:00 Test Item Value Reference Range Comments WHITE BLOOD CELL COUNT (BEAKER) (test qkle=694) 4.6 K/ L 3.5-10.5 RED BLOOD CELL COUNT (BEAKER) (test wdnh=451) 2.49 M/ L 4.63-6.08 HEMOGLOBIN (BEAKER) (test dvxq=314) 8.2 GM/DL 13.7-17.5 HEMATOCRIT (BEAKER) (test rfpn=514) 25.8 % 40.1-51.0 MEAN CORPUSCULAR VOLUME (BEAKER) (test ssvs=112) 103.6 fL 79.0-92.2 MEAN CORPUSCULAR HEMOGLOBIN (BEAKER) (test 32.9 pg 25.7-32.2 citm=876) MEAN CORPUSCULAR HEMOGLOBIN CONC (BEAKER) (test 31.8 GM/DL 32.3-36.5 vouy=320) RED CELL DISTRIBUTION WIDTH (BEAKER) (test 15.0 % 11.6-14.4 waiq=927) PLATELET COUNT (BEAKER) (test pyuf=864) 79 K/CU MM 150-450 MEAN PLATELET VOLUME (BEAKER) (test kxjf=059) 9.6 fL 9.4-12.4 NUCLEATED RED BLOOD CELLS (BEAKER) (test 1 /100 WBC 0-0 eqfc=063) RAD, CHEST, 1 VIEW, NON [id number] 04:22:00Reason for exam:->Post opShould this be performed [...] MDReport Verified Date/Time: 12/23/2018 04:22:43 Reading Location: [facility] C013Y CT Body Reading Room POCT-GLUCOSE [id number] 03:01:00 Test Item Value Reference Range Comments POC-GLUCOSE METER (BEAKER) 85 mg/dL 70-110 TESTED AT [facility] [address] [place] [address] (test ivib=0197) [facility] [address] BASIC METABOLIC [id number] 18:52:00 Test Item Value Reference Range Comments SODIUM (BEAKER) (test 133 meq/L 136-145 lauk=031) POTASSIUM (BEAKER) (test 5.2 meq/L 3.5-5.1 Specimen slightly youp=219) hemolyzed CHLORIDE (BEAKER) (test 94 meq/L 98-107 kczq=938) CO2 (BEAKER) (test 26 meq/L 22-29 uezn=042) BLOOD UREA NITROGEN 43 mg/dL 7-21 (BEAKER) (test wgzw=078) CREATININE (BEAKER) (test 5.20 mg/dL 0.57-1.25 Specimen slightly kalk=912) hemolyzed GLUCOSE RANDOM (BEAKER) 66 mg/dL 70-105 (test kkdl=042) CALCIUM (BEAKER) (test 9.5 mg/dL 8.4-10.2 qqmd=490) EGFR (BEAKER) (test 14 mL/min/1.73 sq m ESTIMATED GFR IS NOT xhix=5153) ACCURATE CREATININE CLEARANCE IN PREDICTING GLOMERULAR FILTRATION RATE. ESTIMATED GFR IS NOT APPLICABLE FOR DIALYSIS PATIENTS. CBC (HEMOGRAM ONLY)2018-12-22 17:50:00 Test Item Value Reference Range Comments WHITE BLOOD CELL COUNT (BEAKER) (test oajd=905) 4.8 K/ L 3.5-10.5 RED BLOOD CELL COUNT (BEAKER) (test ugrt=296) 2.88 M/ L 4.63-6.08 HEMOGLOBIN (BEAKER) (test zsne=336) 9.4 GM/DL 13.7-17.5 HEMATOCRIT (BEAKER) (test hneg=360) 30.2 % 40.1-51.0 MEAN CORPUSCULAR VOLUME (BEAKER) (test woxf=539) 104.9 fL 79.0-92.2 MEAN CORPUSCULAR HEMOGLOBIN (BEAKER) (test 32.6 pg 25.7-32.2 ftjj=255) MEAN CORPUSCULAR HEMOGLOBIN CONC (BEAKER) (test 31.1 GM/DL 32.3-36.5 qzpg=757) RED CELL DISTRIBUTION WIDTH (BEAKER) (test 15.1 % 11.6-14.4 qhgo=060) PLATELET COUNT (BEAKER) (test mppg=303) 115 K/CU MM 150-450 MEAN PLATELET VOLUME (BEAKER) (test kxqz=430) 9.9 fL 9.4-12.4 NUCLEATED RED BLOOD CELLS (BEAKER) (test 1 /100 WBC 0-0 adzi=305) ANAEROBIC [id number] 17:00:00 Test Item Value Reference Range Comments CULTURE (BEAKER) (test pyyj=2905) No anaerobes isolated RAD, CHEST, 1 VIEW, NON [id number] 07:44:00Reason for exam:->Post opShould this be performed [...] Arteaga Verified Date/Time: 2018 07:44:12 Reading Location: [facility] Radiology Reading Room PROTHROMBIN TIME/[id number] 04:31:00 Test Item Value Reference Range Comments PROTIME (BEAKER) (test ldir=684) 63.0 seconds 11.7-14.7 INR (BEAKER) (test hpfz=267) 7.6 <=5.9 RECOMMENDED COUMADIN/WARFARIN INR THERAPY RANGESSTANDARD DOSE: 2.0 - 3.0 Includes: PROPHYLAXIS forvenous thrombosis, systemic embolization; TREATMENT for venous thrombosis and/or pulmonary embolus.HIGH RISK: Target INR is 2.5-3.5 for patients with mechanical heart valves.While on warfarin.POCT-GLUCOSE [id number] 22:29:00 Test Item Value Reference Range Comments POC-GLUCOSE METER (BEAKER) 141 mg/dL 70-110 TESTED AT [facility] [address] (test vjbp=5049) [facility] [address] POCT-GLUCOSE [id number] 13:22:00 Test Item Value Reference Range Comments POC-GLUCOSE METER (BEAKER) 100 mg/dL 70-110 TESTED AT [address] (test zjqh=4066) [facility] [address] RAD, CHEST, 1 VIEW, NON [id number] 08:01:00Reason for exam:->Post opShould this be performed [...] Lisa Verified Date/Time: 12/21/2018 08:01:46 Reading Location: [address] Neuro Reading Room 08: 01 AMPROTHROMBIN TIME/[id number] 05:30:00 Test Item Value Reference Range Comments PROTIME (BEAKER) (test wllx=470) 39.1 seconds 11.7-14.7 INR (BEAKER) (test dghz=258) 4.0 <=5.9 RECOMMENDED COUMADIN/WARFARIN INR THERAPY RANGESSTANDARD DOSE: 2.0 - 3.0 Includes: PROPHYLAXIS forvenous thrombosis, systemic embolization; TREATMENT for venous thrombosis and/or pulmonary embolus.HIGH RISK: Target INR is 2.5-3.5 for patients with mechanical heart valves.While on warfarin.POCT-GLUCOSE [id number] 22:10:00 Test Item Value Reference Range Comments POC-GLUCOSE METER (BEAKER) 98 mg/dL 70-110 TESTED AT [address] (test tcza=9617) [place] [id number] POCT-GLUCOSE [id number] 17:40:00 Test Item Value Reference Range Comments POC-GLUCOSE METER (BEAKER) 91 mg/dL 70-110 TESTED AT [address] (test qbxj=7631) [place] [address] POCT-GLUCOSE [id number] 13:13:00 Test Item Value Reference Range Comments POC-GLUCOSE METER (BEAKER) 73 mg/dL 70-110 TESTED AT [facility] [address] (test fxjd=2753) [facility] [address] SURGICALLY OBTAINED CULTURE + GRAM [id number] 08:41:00 Test Item Value Reference Range Comments CULTURE (BEAKER) (test gyks=1903) No growth GRAM STAIN RESULT (BEAKER) (test No White blood cells seen rudq=8302) GRAM STAIN RESULT (BEAKER) (test No organisms seen fiug=37088) RAD, CHEST, 1 VIEW, NON [id number] 08:20:00Reason for exam:->Post opShould this be performed [...] MDRepdamion Verified Date/Time: 12/20/2018 08:20:58 Reading Location: [address] Neuro Reading Room 08: 20 AMBASIC METABOLIC [id number] 08:09:00 Test Item Value Reference Range Comments SODIUM (BEAKER) (test 132 meq/L 136-145 nxzx=858) POTASSIUM (BEAKER) (test 4.6 meq/L 3.5-5.1 ttwt=300) CHLORIDE (BEAKER) (test 95 meq/L 98-107 uzss=577) CO2 (BEAKER) (test 28 meq/L 22-29 qgpp=120) BLOOD UREA NITROGEN 35 mg/dL 7-21 (BEAKER) (test xtev=781) CREATININE (BEAKER) (test 4.94 mg/dL 0.57-1.25 qmqg=735) GLUCOSE RANDOM (BEAKER) 122 mg/dL 70-105 (test jbbf=348) CALCIUM (BEAKER) (test 9.2 mg/dL 8.4-10.2 xxek=422) EGFR (BEAKER) (test 15 mL/min/1.73 sq m ESTIMATED GFR IS NOT ndjf=5000) ACCURATE CREATININE CLEARANCE IN PREDICTING GLOMERULAR FILTRATION RATE. ESTIMATED GFR IS NOT APPLICABLE FOR DIALYSIS PATIENTS. [id number] 08:00:00 Test Item Value Reference Range Comments PHOSPHORUS (BEAKER) (test qpik=835) 4.5 mg/dL 2.3-4.7 CALCIUM, [id number] 07:20:00 Test Item Value Reference Range Comments CALCIUM IONIZED (BEAKER) (test axha=896) 1.04 mmol/L 1.12-1.27 PH, BLOOD (BEAKER) (test mzhz=4878) 7.35 PROTHROMBIN [id number] 07:04:00 Test Item Value Reference Range Comments PROTIME (BEAKER) (test eslv=019) 21.1 seconds 11.7-14.7 INR (BEAKER) (test kizo=021) 1.8 <=5.9 RECOMMENDED COUMADIN/WARFARIN INR THERAPY RANGESSTANDARD DOSE: 2.0 - 3.0 Includes: PROPHYLAXIS forvenous thrombosis, systemic embolization; TREATMENT for venous thrombosis and/or pulmonary embolus.HIGH RISK: Target INR is 2.5-3.5 for patients with mechanical heart valves.While on warfarin.CBC (HEMOGRAM ONLY) 2018-12-20 06:55:00 Test Item Value Reference Range Comments WHITE BLOOD CELL COUNT (BEAKER) (test qkiy=189) 9.4 K/ L 3.5-10.5 RED BLOOD CELL COUNT (BEAKER) (test bghx=879) 2.65 M/ L 4.63-6.08 HEMOGLOBIN (BEAKER) (test gbop=592) 8.8 GM/DL 13.7-17.5 HEMATOCRIT (BEAKER) (test olui=205) 27.5 % 40.1-51.0 MEAN CORPUSCULAR VOLUME (BEAKER) (test orrh=459) 103.8 fL 79.0-92.2 MEAN CORPUSCULAR HEMOGLOBIN (BEAKER) (test 33.2 pg 25.7-32.2 ttqj=028) MEAN CORPUSCULAR HEMOGLOBIN CONC (BEAKER) (test 32.0 GM/DL 32.3-36.5 mhcu=957) RED CELL DISTRIBUTION WIDTH (BEAKER) (test 15.4 % 11.6-14.4 jgsv=584) PLATELET COUNT (BEAKER) (test xvle=896) 118 K/CU MM 150-450 MEAN PLATELET VOLUME (BEAKER) (test dqob=099) 9.7 fL 9.4-12.4 NUCLEATED RED BLOOD CELLS (BEAKER) (test 0 /100 WBC 0-0 ccau=135) POCT-GLUCOSE [id number] 22:00:00 Test Item Value Reference Range Comments POC-GLUCOSE METER (BEAKER) 188 mg/dL 70-110 TESTED AT [address] (test vauu=2961) [place] [address] TISSUE [id number] 18:15:00Surgical Pathology Report Case: [id number] Authorizing Provider: Moiz Vargas, Collected: 12/17/2018 0950 OrderingLocation: [facility] Received: 2018 1129 PERIOPERATIVE SERVICES Pathologist: Kwan Perla MD Specimen: Pleural, Right, RIGHT PLEURAL PEEL PLEURA, RIGHT, DECORTICATION - MILD CHRONIC INFLAMMATION AND GRANULATION TISSUE- ORGANIZING BLOOD CLOTS- NO MALIGNANT CELLS IDENTIFIED Signing Pathologist Direct Phone Line: Correlation with microbiology cultures is recommended.[id number] effusion and other conditions classified elsewhereRight pleural peelThe specimen is received in a formalin-filled container labeled with the patient's information and labeled "right pleural peel" and consists of multiple fragments of porter-red, dusky, firm tissue measuring 6 x 5 x 0.4 cm in aggregate. Manager Land sections are submitted in A1-A3. CG/ew Performed.POCT-GLUCOSE [id number] 17 :11:00 Test Item Value Reference Range Comments POC-GLUCOSE METER (BEAKER) 126 mg/dL 70-110 TESTED AT [address] (test aohh=9277) [place] [address] POCT-GLUCOSE [id number] 12:57:00 Test Item Value Reference Range Comments POC-GLUCOSE METER (BEAKER) 143 mg/dL 70-110 [address] (test wiww=4362) [facility] [address] POCT-GLUCOSE [id number] 07:27:00 Test Item Value Reference Range Comments POC-GLUCOSE METER (BEAKER) 141 mg/dL 70-110 TESTED AT [facility] [address] [facility] (test jjcs=4001) [facility] [address] CALCIUM, [id number] 06:29:00 Test Item Value Reference Range Comments CALCIUM IONIZED (BEAKER) (test afhm=768) 1.00 mmol/L 1.12-1.27 PH, BLOOD (BEAKER) (test qfhm=9156) 7.45 RAD, CHEST, 1 VIEW, NON [id number] 04:54:00Reason for exam:->Post opShould this be performed [...] are median sternotomy wires. Signed: Raz Taylor [facility] Verified Date/ Time: 12/19/2018 04:54:49 Reading Location: [facility] [address] Body Reading Room BASIC METABOLIC [id number] 04:19:00 Test Item Value Reference Range Comments SODIUM (BEAKER) (test 132 meq/L 136-145 ymcz=097) POTASSIUM (BEAKER) (test 4.0 meq/L 3.5-5.1 ccai=678) CHLORIDE (BEAKER) (test 96 meq/L 98-107 thlo=142) CO2 (BEAKER) (test 28 meq/L 22-29 qvuj=037) BLOOD UREA NITROGEN 18 mg/dL 7-21 (BEAKER) (test mbgn=262) CREATININE (BEAKER) (test 3.49 mg/dL 0.57-1.25 kjbx=649) GLUCOSE RANDOM (BEAKER) 139 mg/dL 70-105 (test ygdr=166) CALCIUM (BEAKER) (test 8.9 mg/dL 8.4-10.2 mjls=920) EGFR (BEAKER) (test 22 mL/min/1.73 sq m ESTIMATED GFR IS NOT rgxo=9330) ACCURATE CREATININE CLEARANCE IN PREDICTING GLOMERULAR FILTRATION RATE. ESTIMATED GFR IS NOT APPLICABLE FOR DIALYSIS PATIENTS. [id number] 04:16:00 Test Item Value Reference Range Comments PHOSPHORUS (BEAKER) (test hnvv=460) 3.4 mg/dL 2.3-4.7 PROTHROMBIN [id number] 04:06:00 Test Item Value Reference Range Comments PROTIME (BEAKER) (test ptrm=275) 20.9 seconds 11.7-14.7 INR (BEAKER) (test zlzn=866) 1.8 <=5.9 RECOMMENDED COUMADIN/WARFARIN INR THERAPY RANGESSTANDARD DOSE: 2.0 - 3.0 Includes: PROPHYLAXIS forvenous thrombosis, systemic embolization; TREATMENT for venous thrombosis and/or pulmonary embolus.HIGH RISK: Target INR is 2.5-3.5 for patients with mechanical heart valves.CBC (HEMOGRAM ONLY)2018-12-19 03:56:00 Test Item Value Reference Range Comments WHITE BLOOD CELL COUNT (BEAKER) (test pxdu=121) 9.7 K/ L 3.5-10.5 RED BLOOD CELL COUNT (BEAKER) (test euwp=119) 2.56 M/ L 4.63-6.08 HEMOGLOBIN (BEAKER) (test jcym=191) 8.5 GM/DL 13.7-17.5 HEMATOCRIT (BEAKER) (test rehm=346) 26.3 % 40.1-51.0 MEAN CORPUSCULAR VOLUME (BEAKER) (test cnva=918) 102.7 fL 79.0-92.2 MEAN CORPUSCULAR HEMOGLOBIN (BEAKER) (test 33.2 pg 25.7-32.2 zrrr=062) MEAN CORPUSCULAR HEMOGLOBIN CONC (BEAKER) (test 32.3 GM/DL 32.3-36.5 ntlt=667) RED CELL DISTRIBUTION WIDTH (BEAKER) (test 15.7 % 11.6-14.4 gupn=477) PLATELET COUNT (BEAKER) (test pyzi=288) 114 K/CU MM 150-450 MEAN PLATELET VOLUME (BEAKER) (test wvlm=786) 9.8 fL 9.4-12.4 NUCLEATED RED BLOOD CELLS (BEAKER) (test 0 /100 WBC 0-0 uana=761) POCT-GLUCOSE [id number] 22:11:00 Test Item Value Reference Range Comments POC-GLUCOSE METER (BEAKER) 149 mg/dL 70-110 TESTED AT [address] (test vodn=5121) [place] [address] POCT-GLUCOSE [id number] 17:52:00 Test Item Value Reference Range Comments POC-GLUCOSE METER (BEAKER) 122 mg/dL 70-110 TESTED AT [address] (test wjrb=3569) [place] [address] POCT-GLUCOSE [id number] 14:26:00 Test Item Value Reference Range Comments POC-GLUCOSE METER (BEAKER) 98 mg/dL 70-110 TESTED AT [address] (test ysok=7724) [place] [id number] HEMOGLOBIN AND [id number] 12:47:00 Test Item Value Reference Range Comments HEMOGLOBIN (BEAKER) (test tbdt=766) 9.2 GM/DL 13.7-17.5 HEMATOCRIT (BEAKER) (test gxyi=282) 28.3 % 40.1-51.0 POCT-GLUCOSE [id number] 09:38:00 Test Item Value Reference Range Comments POC-GLUCOSE METER (BEAKER) 73 mg/dL 70-110 TESTED AT [address] (test vrxt=4789) [place] [id number] PROTEIN ELECTROPHORESIS, [id number] 09:21:00 Test Item Value Reference Range Comments ALBUMIN FRACTION (BEAKER) 3.2 g/dL 3.5-5.5 (test anbj=823) ALPHA 1 FRACTION (BEAKER) 0.4 g/dL 0.2-0.4 (test dbzj=872) ALPHA 2 FRACTION (BEAKER) 0.6 g/dL 0.5-0.9 (test ooky=675) BETA FRACTION (BEAKER) (test 1.1 g/dL 0.6-1.1 amka=769) GAMMA GLOBULIN FRACTION 2.2 g/dL 0.7-1.7 (BEAKER) (test ualh=136) INTERPRETATION-119 (BEAKER) Mild polyclonal elevation of (test hshm=1198) gamma fraction, suggesting component of chronic inflammation. No monoclonal bands detected. JBTL-HOIOYPVZYHU-180 (BEAKER) Amanda De Jesus MD (test ekmd=2444) (electronic signature) PROTEIN TOTAL SERUM, SPEP 7.5 gm/dL 6.0-8.3 (BEAKER) (test hbyg=7211) RAD, CHEST, 1 VIEW, NON [id number] 06:47:00Reason for exam:->Post opShould this be performed [...] MDReport Verified Date/Time: 12/18/2018 06:47:21 Reading Location: [facility] [address] C[address] CT Body Reading Room Electronically signed by: RAZ TAYLOR MD on 2018 06:47 [id number] 06:20:00 Test Item Value Reference Range Comments MAGNESIUM (BEAKER) (test hucn=559) 2.2 mg/dL 1.6-2.6 CALCIUM, [id number] 06:00:00 Test Item Value Reference Range Comments CALCIUM IONIZED (BEAKER) (test nzpr=697) 1.09 mmol/L 1.12-1.27 PH, BLOOD (BEAKER) (test wcoz=7130) 7.34 BASIC METABOLIC [id number] 05:07:00 Test Item Value Reference Range Comments SODIUM (BEAKER) (test 136 meq/L 136-145 pwse=001) POTASSIUM (BEAKER) (test 5.0 meq/L 3.5-5.1 hqtg=259) CHLORIDE (BEAKER) (test 100 meq/L 98-107 iacx=968) CO2 (BEAKER) (test 25 meq/L 22-29 daqz=390) BLOOD UREA NITROGEN 34 mg/dL 7-21 (BEAKER) (test fwwt=348) CREATININE (BEAKER) (test 6.00 mg/dL 0.57-1.25 hzkh=990) GLUCOSE RANDOM (BEAKER) 91 mg/dL 70-105 (test rwkk=456) CALCIUM (BEAKER) (test 9.1 mg/dL 8.4-10.2 ftil=921) EGFR (BEAKER) (test 12 mL/min/1.73 sq m ESTIMATED GFR IS NOT numf=0087) ACCURATE CREATININE CLEARANCE IN PREDICTING GLOMERULAR FILTRATION RATE. ESTIMATED GFR IS NOT APPLICABLE FOR DIALYSIS PATIENTS. [id number] 04:54:00 Test Item Value Reference Range Comments PHOSPHORUS (BEAKER) (test lbog=369) 6.3 mg/dL 2.3-4.7 HEPATIC FUNCTION [id number] 04:54:00 Test Item Value Reference Range Comments TOTAL PROTEIN (BEAKER) (test tnxd=857) 6.8 gm/dL 6.0-8.3 ALBUMIN (BEAKER) (test qzmb=9807) 3.1 g/dL 3.5-5.0 BILIRUBIN TOTAL (BEAKER) (test agxg=757) 1.0 mg/dL 0.2-1.2 BILIRUBIN DIRECT (BEAKER) (test puev=903) 0.8 mg/dL 0.1-0.5 ALKALINE PHOSPHATASE (BEAKER) (test ymxw=049) 58 U/L 40-150 AST (SGOT) (BEAKER) (test gjge=771) 29 U/L 5-34 ALT (SGPT) (BEAKER) (test lpxg=225) 23 U/L 6-55 [id number] 04:51:00 Test Item Value Reference Range Comments PARTIAL THROMBOPLASTIN TIME (BEAKER) (test 38.6 seconds 22.5-36.0 uapb=452) PROTHROMBIN TIME/[id number] 04:50:00 Test Item Value Reference Range Comments PROTIME (BEAKER) (test abfg=845) 16.0 seconds 11.7-14.7 INR (BEAKER) (test kich=760) 1.3 <=5.9 RECOMMENDED COUMADIN/WARFARIN INR THERAPY RANGESSTANDARD DOSE: 2.0 - 3.0 Includes: PROPHYLAXIS forvenous thrombosis, systemic embolization; TREATMENT for venous thrombosis and/or pulmonary embolus.HIGH RISK: Target INR is 2.5-3.5 for patients with mechanical heart valves.[id number] 04:50:00 Test Item Value Reference Range Comments FIBRINOGEN LEVEL (BEAKER) (test smky=423) 494 mg/dl 225-434 PLATELET [id number] 04:38:00 Test Item Value Reference Range Comments PLATELET COUNT (BEAKER) (test zitx=587) 112 K/CU MM 150-450 CBC (HEMOGRAM ONLY)2018-12-18 04:38:00 Test Item Value Reference Range Comments WHITE BLOOD CELL COUNT (BEAKER) (test svca=937) 8.8 K/ L 3.5-10.5 RED BLOOD CELL COUNT (BEAKER) (test oejh=207) 2.82 M/ L 4.63-6.08 HEMOGLOBIN (BEAKER) (test pbag=523) 9.2 GM/DL 13.7-17.5 HEMATOCRIT (BEAKER) (test slhs=402) 29.0 % 40.1-51.0 MEAN CORPUSCULAR VOLUME (BEAKER) (test jdvb=096) 102.8 fL 79.0-92.2 MEAN CORPUSCULAR HEMOGLOBIN (BEAKER) (test 32.6 pg 25.7-32.2 jeie=939) MEAN CORPUSCULAR HEMOGLOBIN CONC (BEAKER) (test 31.7 GM/DL 32.3-36.5 yvpc=182) RED CELL DISTRIBUTION WIDTH (BEAKER) (test 16.2 % 11.6-14.4 xfgr=914) PLATELET COUNT (BEAKER) (test zgcf=380) 112 K/CU MM 150-450 MEAN PLATELET VOLUME (BEAKER) (test nfou=964) 9.4 fL 9.4-12.4 NUCLEATED RED BLOOD CELLS (BEAKER) (test 0 /100 WBC 0-0 jyry=781) [id number] 18:48:00 Test Item Value Reference Range Comments MAGNESIUM (BEAKER) (test dorh=859) 2.4 mg/dL 1.6-2.6 POCT-GLUCOSE [id number] 18:42:00 Test Item Value Reference Range Comments POC-GLUCOSE METER (BEAKER) 121 mg/dL 70-110 TESTED AT [facility] [address] [facility] (test ktez=7647) [facility] [address] HEMOGLOBIN AND [id number] 18:37:00 Test Item Value Reference Range Comments HEMOGLOBIN (BEAKER) (test xirb=017) 10.0 GM/DL 13.7-17.5 HEMATOCRIT (BEAKER) (test fhsm=215) 31.3 % 40.1-51.0 RAD, CHEST, 1 VIEW, NON [id number] 13:28:00Reason for exam:->post opShould this be performed [...] Verified Date/Time: 12/17/2018 13: 28:23 Reading Location: [facility] Mammo Reading Room BASI METABOLIC [id number] 13:03:00 Test Item Value Reference Range Comments SODIUM (BEAKER) (test 138 meq/L 136-145 qwlp=325) POTASSIUM (BEAKER) (test 4.2 meq/L 3.5-5.1 behm=907) CHLORIDE (BEAKER) (test 103 meq/L 98-107 hxrj=793) CO2 (BEAKER) (test 27 meq/L 22-29 teyz=498) BLOOD UREA NITROGEN 28 mg/dL 7-21 (BEAKER) (test xelt=319) CREATININE (BEAKER) (test 4.75 mg/dL 0.57-1.25 qrpw=519) GLUCOSE RANDOM (BEAKER) 118 mg/dL 70-105 (test mfkf=595) CALCIUM (BEAKER) (test 8.3 mg/dL 8.4-10.2 mcbm=265) EGFR (BEAKER) (test 15 mL/min/1.73 sq m ESTIMATED GFR IS NOT ltay=0644) ACCURATE CREATININE CLEARANCE IN PREDICTING GLOMERULAR FILTRATION RATE. ESTIMATED GFR IS NOT APPLICABLE FOR DIALYSIS PATIENTS. [id number] 12:53:00 Test Item Value Reference Range Comments PHOSPHORUS (BEAKER) (test ihgs=371) 4.3 mg/dL 2.3-4.7 [id number] 12:53:00 Test Item Value Reference Range Comments MAGNESIUM (BEAKER) (test ypmw=980) 1.5 mg/dL 1.6-2.6 LACTIC ACID, [id number] 12:50:00 Test Item Value Reference Range Comments LACTATE BLOOD ARTERIAL (2) (BEAKER) (test 0.9 mmol/L 0.5-2.2 bdhy=1051) CBC W/PLT COUNT & AUTO [id number] 12:47:00 Test Item Value Reference Range Comments WHITE BLOOD CELL COUNT (BEAKER) (test zvpz=315) 5.0 K/ L 3.5-10.5 RED BLOOD CELL COUNT (BEAKER) (test ieyo=894) 2.22 M/ L 4.63-6.08 HEMOGLOBIN (BEAKER) (test lzok=309) 7.5 GM/DL 13.7-17.5 HEMATOCRIT (BEAKER) (test ucca=001) 23.4 % 40.1-51.0 MEAN CORPUSCULAR VOLUME (BEAKER) (test bpuh=197) 105.4 fL 79.0-92.2 MEAN CORPUSCULAR HEMOGLOBIN (BEAKER) (test 33.8 pg 25.7-32.2 zvjt=417) MEAN CORPUSCULAR HEMOGLOBIN CONC (BEAKER) (test 32.1 GM/DL 32.3-36.5 hxdw=157) RED CELL DISTRIBUTION WIDTH (BEAKER) (test 14.5 % 11.6-14.4 tyns=437) PLATELET COUNT (BEAKER) (test fwsj=194) 127 K/CU MM 150-450 MEAN PLATELET VOLUME (BEAKER) (test bxxz=717) 9.8 fL 9.4-12.4 NUCLEATED RED BLOOD CELLS (BEAKER) (test 0 /100 WBC 0-0 dpil=111) NEUTROPHILS RELATIVE PERCENT (BEAKER) (test 73 % cmch=380) LYMPHOCYTES RELATIVE PERCENT (BEAKER) (test 15 % xzsw=714) MONOCYTES RELATIVE PERCENT (BEAKER) (test 10 % jcgl=637) EOSINOPHILS RELATIVE PERCENT (BEAKER) (test 1 % dlpv=667) BASOPHILS RELATIVE PERCENT (BEAKER) (test 0 % xeru=879) NEUTROPHILS ABSOLUTE COUNT (BEAKER) (test 3.65 K/ L 1.78-5.38 qjmh=659) LYMPHOCYTES ABSOLUTE COUNT (BEAKER) (test 0.73 K/ L 1.32-3.57 zwov=408) MONOCYTES ABSOLUTE COUNT (BEAKER) (test 0.50 K/ L 0.30-0.82 onov=352) EOSINOPHILS ABSOLUTE COUNT (BEAKER) (test 0.04 K/ L 0.04-0.54 dplb=904) BASOPHILS ABSOLUTE COUNT (BEAKER) (test 0.02 K/ L 0.01-0.08 atck=589) IMMATURE GRANULOCYTES-RELATIVE PERCENT (BEAKER) 1 % 0-1 (test zqma=2721) CALCIUM, [id number] 12:26:00 Test Item Value Reference Range Comments CALCIUM IONIZED (BEAKER) (test ofjp=534) 1.07 mmol/L 1.12-1.27 PH, BLOOD (BEAKER) (test capf=3833) 7.38 BLOOD GAS, [id number] 12:26:00 Test Item Value Reference Range Comments PH ARTERIAL (BEAKER) (test ieyj=288) 7.39 7.35-7.45 PCO2 ARTERIAL (BEAKER) (test uzwz=345) 46 mmHg 35-45 PO2 ARTERIAL (BEAKER) (test ydxo=426) 289 mmHg 80-90 O2 SATURATION ARTERIAL (BEAKER) (test uqsx=090) 99.7 % 96.0-97.0 HCO3 ARTERIAL (BEAKER) (test nmrg=589) 27 mmol/L 21-29 BASE EXCESS ARTERIAL (BEAKER) (test tgab=562) 1.4 mmol/L -2.0-3.0 PATIENT TEMPERATURE (BEAKER) (test bfrc=6482) 36.8 C FIO2 (BEAKER) (test vthj=1319) 40.0 % CALCIUM, [id number] 10:25:00 Test Item Value Reference Range Comments CALCIUM IONIZED (BEAKER) (test bbko=870) 1.09 mmol/L 1.12-1.27 PH, BLOOD (BEAKER) (test itvt=3133) 7.45 BLOOD GAS, [id number] 10:22:00 Test Item Value Reference Range Comments PH ARTERIAL (BEAKER) (test dnxm=940) 7.48 7.35-7.45 PCO2 ARTERIAL (BEAKER) (test tmlp=493) 34 mmHg 35-45 PO2 ARTERIAL (BEAKER) (test pkuz=384) 391 mmHg 80-90 O2 SATURATION ARTERIAL (BEAKER) (test yweo=106) 99.8 % 96.0-97.0 HCO3 ARTERIAL (BEAKER) (test qiqt=186) 26 mmol/L 21-29 BASE EXCESS ARTERIAL (BEAKER) (test yxis=353) 1.6 mmol/L -2.0-3.0 PATIENT TEMPERATURE (BEAKER) (test ynyv=2699) 34.9 C FIO2 (BEAKER) (test dldv=6920) 96.0 % SODIUM NA-STAT [id number] 10:22:00 Test Item Value Reference Range Comments SODIUM (BEAKER) (test eomc=600) 133 meq/L 135-148 GLUCOSE-STAT [id number] 10:22:00 Test Item Value Reference Range Comments GLUCOSE RANDOM (BEAKER) (test hsbo=770) 116 mg/dL 70-110 HGB/HCT (H&H) - STAT [id number] 10:22:00 Test Item Value Reference Range Comments HEMOGLOBIN (BEAKER) (test bvyb=454) 8.9 g/dL 13.0-16.8 HEMATOCRIT (BEAKER) (test ltfb=515) 26.0 % 40.0-50.0 POTASSIUM-STAT [id number] 10:20:00 Test Item Value Reference Range Comments POTASSIUM (BEAKER) (test kcrs=394) 4.0 meq/L 3.6-5.5 HEMOGLOBIN [id number] 09:33:00 Test Item Value Reference Range Comments HEMOGLOBIN A1C (BEAKER) (test nhvs=407) 5.9 % 4.3-6.1 BLOOD GAS, [id number] 09:27:00 Test Item Value Reference Range Comments PH ARTERIAL (BEAKER) (test sdhh=555) 7.44 7.35-7.45 PCO2 ARTERIAL (BEAKER) (test skse=684) 42 mmHg 35-45 PO2 ARTERIAL (BEAKER) (test qyne=854) 262 mmHg 80-90 O2 SATURATION ARTERIAL (BEAKER) (test ofqc=760) 99.6 % 96.0-97.0 HCO3 ARTERIAL (BEAKER) (test sano=424) 28 mmol/L 21-29 BASE EXCESS ARTERIAL (BEAKER) (test cmcq=822) 3.0 mmol/L -2.0-3.0 PATIENT TEMPERATURE (BEAKER) (test hxmd=6301) 37.0 C FIO2 (BEAKER) (test vnxo=7995) 100.0 % SODIUM NA-STAT [id number] 09:27:00 Test Item Value Reference Range Comments SODIUM (BEAKER) (test omij=453) 133 meq/L 135-148 HGB/HCT (H&H) - STAT [id number] 09:27:00 Test Item Value Reference Range Comments HEMOGLOBIN (BEAKER) (test fbhz=040) 9.4 g/dL 13.0-16.8 HEMATOCRIT (BEAKER) (test wrad=046) 28.0 % 40.0-50.0 GLUCOSE-STAT [id number] 09:26:00 Test Item Value Reference Range Comments GLUCOSE RANDOM (BEAKER) (test eedq=597) 97 mg/dL 70-110 POTASSIUM-STAT [id number] 09:26:00 Test Item Value Reference Range Comments POTASSIUM (BEAKER) (test ecpv=159) 3.9 meq/L 3.6-5.5 CALCIUM, [id number] 09:26:00 Test Item Value Reference Range Comments CALCIUM IONIZED (BEAKER) (test lmhm=241) 1.17 mmol/L 1.12-1.27 PH, BLOOD (BEAKER) (test abaj=8727) 7.44 BLOOD GAS, [id number] 08:32:00 Test Item Value Reference Range Comments PH ARTERIAL (BEAKER) (test jskn=945) 7.52 7.35-7.45 PCO2 ARTERIAL (BEAKER) (test iqkc=281) 34 mmHg 35-45 PO2 ARTERIAL (BEAKER) (test twiw=751) 310 mmHg 80-90 O2 SATURATION ARTERIAL (BEAKER) (test cdkw=008) 99.8 % 96.0-97.0 HCO3 ARTERIAL (BEAKER) (test malz=826) 28 mmol/L 21-29 BASE EXCESS ARTERIAL (BEAKER) (test cwkr=568) 4.2 mmol/L -2.0-3.0 PATIENT TEMPERATURE (BEAKER) (test gkbe=4518) 35.4 C FIO2 (BEAKER) (test yqmd=3064) 96.0 % SODIUM NA-STAT [id number] 08:32:00 Test Item Value Reference Range Comments SODIUM (BEAKER) (test omhd=520) 133 meq/L 135-148 GLUCOSE-STAT [id number] 08:32:00 Test Item Value Reference Range Comments GLUCOSE RANDOM (BEAKER) (test ftmz=429) 113 mg/dL 70-110 HGB/HCT (H&H) - STAT [id number] 08:32:00 Test Item Value Reference Range Comments HEMOGLOBIN (BEAKER) (test tsut=621) 9.9 g/dL 13.0-16.8 HEMATOCRIT (BEAKER) (test cczh=585) 29.0 % 40.0-50.0 CALCIUM, [id number] 08:31:00 Test Item Value Reference Range Comments CALCIUM IONIZED (BEAKER) (test rgpw=352) 1.05 mmol/L 1.12-1.27 PH, BLOOD (BEAKER) (test bqxv=6093) 7.49 POTASSIUM-STAT [id number] 08:29:00 Test Item Value Reference Range Comments POTASSIUM (BEAKER) (test yufy=045) 3.6 meq/L 3.6-5.5 POCT-GLUCOSE [id number] 06:20:00 Test Item Value Reference Range Comments POC-GLUCOSE METER (BEAKER) 99 mg/dL 70-110 TESTED AT [facility] [address] [facility] (test uynu=4338) [facility] [address] [id number] 05:05:00 Test Item Value Reference Range Comments PARTIAL THROMBOPLASTIN TIME (BEAKER) (test 75.6 seconds 22.5-36.0 twnl=665) LIPID [id number] 05:04:00 Test Item Value Reference Range Comments TRIGLYCERIDES (BEAKER) (test gpmb=205) 53 mg/dL CHOLESTEROL (BEAKER) (test dqlz=212) 122 mg/dL HDL CHOLESTEROL (BEAKER) (test dejo=462) 58 mg/dL LDL CHOLESTEROL CALCULATED (BEAKER) (test 53 mg/dL wlip=641) Triglyceride Reference Range: Low Risk <150 Borderline 150- 199 High Risk 200-499 Very High Risk >=500Cholesterol Reference Range: Low Risk <200 Borderline 200-239 High Risk > 240HDL Cholesterol Reference Range: Low Risk >=60 High Risk <40LDL Cholesterol Reference Range: Optimal <100 Near Optimal 100-129 Borderline 130-159 High 160-189 Very High >=190PROTHROMBIN [id number] 05:03:00 Test Item Value Reference Range Comments PROTIME (BEAKER) (test ayep=333) 15.4 seconds 11.7-14.7 INR (BEAKER) (test aovo=335) 1.2 <=5.9 RECOMMENDED COUMADIN/WARFARIN INR THERAPY RANGESSTANDARD DOSE: 2.0 - 3.0 Includes: PROPHYLAXIS forvenous thrombosis, systemic embolization; TREATMENT for venous thrombosis and/or pulmonary embolus.HIGH RISK: Target INR is 2.5-3.5 for patients with mechanical heart valves.POCT-GLUCOSE [id number] 21:17:00 Test Item Value Reference Range Comments POC-GLUCOSE METER (BEAKER) 223 mg/dL 70-110 TESTED AT [facility] [address] [facility] (test qlvl=6665) [facility] [address] COMPREHENSIVE METABOLIC [id number] 18:57:00 Test Item Value Reference Range Comments TOTAL PROTEIN (BEAKER) 7.8 gm/dL 6.0-8.3 (test kxdo=957) ALBUMIN (BEAKER) (test 3.1 g/dL 3.5-5.0 mgcs=9216) ALKALINE PHOSPHATASE 80 U/L 40-150 (BEAKER) (test lgeb=402) BILIRUBIN TOTAL (BEAKER) 0.9 mg/dL 0.2-1.2 (test xjjn=517) SODIUM (BEAKER) (test 136 meq/L 136-145 zaxx=849) POTASSIUM (BEAKER) (test 3.9 meq/L 3.5-5.1 mrdf=899) CHLORIDE (BEAKER) (test 98 meq/L 98-107 cdpi=634) CO2 (BEAKER) (test 30 meq/L 22-29 syvt=738) BLOOD UREA NITROGEN 19 mg/dL 7-21 (BEAKER) (test wjsj=219) CREATININE (BEAKER) (test 3.98 mg/dL 0.57-1.25 jsof=415) GLUCOSE RANDOM (BEAKER) 159 mg/dL 70-105 (test myli=854) CALCIUM (BEAKER) (test 8.9 mg/dL 8.4-10.2 pxjd=487) AST (SGOT) (BEAKER) (test 25 U/L 5-34 jjor=074) ALT (SGPT) (BEAKER) (test 28 U/L 6-55 mduh=052) EGFR (BEAKER) (test 19 mL/min/1.73 sq m ESTIMATED GFR IS NOT vnps=4423) ACCURATE CREATININE CLEARANCE IN PREDICTING GLOMERULAR FILTRATION RATE. ESTIMATED GFR IS NOT APPLICABLE FOR DIALYSIS PATIENTS. [id number] 18:46:00 Test Item Value Reference Range Comments MAGNESIUM (BEAKER) (test sbts=674) 1.8 mg/dL 1.6-2.6 CBC W/PLT COUNT & AUTO [id number] 18:10:00 Test Item Value Reference Range Comments WHITE BLOOD CELL COUNT (BEAKER) (test axcp=678) 6.2 K/ L 3.5-10.5 RED BLOOD CELL COUNT (BEAKER) (test eaux=933) 3.32 M/ L 4.63-6.08 HEMOGLOBIN (BEAKER) (test iqed=195) 11.0 GM/DL 13.7-17.5 HEMATOCRIT (BEAKER) (test eulr=516) 34.4 % 40.1-51.0 MEAN CORPUSCULAR VOLUME (BEAKER) (test adgp=948) 103.6 fL 79.0-92.2 MEAN CORPUSCULAR HEMOGLOBIN (BEAKER) (test 33.1 pg 25.7-32.2 zjxz=767) MEAN CORPUSCULAR HEMOGLOBIN CONC (BEAKER) (test 32.0 GM/DL 32.3-36.5 zbzh=128) RED CELL DISTRIBUTION WIDTH (BEAKER) (test 14.9 % 11.6-14.4 phjt=854) PLATELET COUNT (BEAKER) (test raey=675) 77 K/CU MM 150-450 MEAN PLATELET VOLUME (BEAKER) (test bwkq=292) 10.2 fL 9.4-12.4 NUCLEATED RED BLOOD CELLS (BEAKER) (test 0 /100 WBC 0-0 idev=488) NEUTROPHILS RELATIVE PERCENT (BEAKER) (test 71 % autz=709) LYMPHOCYTES RELATIVE PERCENT (BEAKER) (test 13 % dqif=820) MONOCYTES RELATIVE PERCENT (BEAKER) (test 14 % afgy=998) EOSINOPHILS RELATIVE PERCENT (BEAKER) (test 1 % kfuh=147) BASOPHILS RELATIVE PERCENT (BEAKER) (test 1 % vtwc=626) NEUTROPHILS ABSOLUTE COUNT (BEAKER) (test 4.39 K/ L 1.78-5.38 ucnu=685) LYMPHOCYTES ABSOLUTE COUNT (BEAKER) (test 0.82 K/ L 1.32-3.57 lhfk=358) MONOCYTES ABSOLUTE COUNT (BEAKER) (test nvym=356) 0.84 K/ L 0.30-0.82 EOSINOPHILS ABSOLUTE COUNT (BEAKER) (test 0.05 K/ L 0.04-0.54 oigc=339) BASOPHILS ABSOLUTE COUNT (BEAKER) (test nzmj=750) 0.03 K/ L 0.01-0.08 IMMATURE GRANULOCYTES-RELATIVE PERCENT (BEAKER) 1 % 0-1 (test hrnh=4146) POCT-GLUCOSE [id number] 17:34:00 Test Item Value Reference Range Comments POC-GLUCOSE METER (BEAKER) 169 mg/dL 70-110 TESTED AT [facility] [address] [facility] (test hsyw=4662) [place] [address] HEPARIN [id number] 13:40:00 Test Item Value Reference Range Comments HEPARIN ANTIBODY (BEAKER) (test oqxk=494) Negative Negative HEPARIN ANTIBODY OD (BEAKER) (test veus=8815) 0.105 <0.400 4T TOTAL SCORE (BEAKER) (test rloe=1571) 4 Probability of HIT based on scoring system: 6-8=High probability; 4-5= intermediate probability; 0-3=low probabilityPOCT-GLUCOSE [id number] 12:51: 00 Test Item Value Reference Range Comments POC-GLUCOSE METER (BEAKER) 66 mg/dL 70-110 Notified LAURYN PÉREZ/TESTED AT [facility] (test qpww=6691) [address] [place] [address] POCT-GLUCOSE [id number] 07:54:00 Test Item Value Reference Range Comments POC-GLUCOSE METER (BEAKER) 75 mg/dL 70-110 TESTED AT [address] (test fsui=4248) [facility] [address] [id number] 04:21:00 Test Item Value Reference Range Comments PROTIME (BEAKER) (test vjvt=175) 15.4 seconds 11.7-14.7 INR (BEAKER) (test fqmj=309) 1.2 <=5.9 PARTIAL THROMBOPLASTIN TIME (BEAKER) (test 74.0 seconds 22.5-36.0 eunh=660) RECOMMENDED COUMADIN/WARFARIN INR THERAPY RANGESSTANDARD DOSE: 2.0 - 3.0 Includes: PROPHYLAXIS forvenous thrombosis, systemic embolization; TREATMENT for venous thrombosis and/or pulmonary embolus.HIGH RISK: Target INR is 2.5-3.5 for patients with mechanical heart valves.[id number] 04:20:00 Test Item Value Reference Range Comments FIBRINOGEN LEVEL (BEAKER) (test kbra=605) 525 mg/dl 225-434 POCT-GLUCOSE [id number] 21:25:00 Test Item Value Reference Range Comments POC-GLUCOSE METER (BEAKER) 129 mg/dL 70-110 TESTED AT [address] (test vmpc=9367) [facility] [address] [id number] 18:23:00 Test Item Value Reference Range Comments PARTIAL THROMBOPLASTIN TIME (BEAKER) (test 72.0 seconds 22.5-36.0 vrfx=859) POCT-GLUCOSE [id number] 16:20:00 Test Item Value Reference Range Comments POC-GLUCOSE METER (BEAKER) 142 mg/dL 70-110 TESTED AT [address] (test xidm=8595) [facility] [address] POCT-GLUCOSE [id number] 13:05:00 Test Item Value Reference Range Comments POC-GLUCOSE METER (BEAKER) 86 mg/dL 70-110 TESTED AT [address] (test muzx=4544) [facility] [address] [id number] 11:19:00 Test Item Value Reference Range Comments PARTIAL THROMBOPLASTIN TIME (BEAKER) (test 72.3 seconds 22.5-36.0 zvoc=464) POCT-GLUCOSE [id number] 07:56:00 Test Item Value Reference Range Comments POC-GLUCOSE METER (BEAKER) 87 mg/dL 70-110 TESTED AT [address] (test knyp=2419) [facility] [address] [id number] 03:13:00 Test Item Value Reference Range Comments PARTIAL THROMBOPLASTIN TIME (BEAKER) (test 97.1 seconds 22.5-36.0 jevt=658) PROTHROMBIN [id number] 03:11:00 Test Item Value Reference Range Comments PROTIME (BEAKER) (test uino=256) 16.5 seconds 11.7-14.7 INR (BEAKER) (test mwzi=734) 1.3 <=5.9 RECOMMENDED COUMADIN/WARFARIN INR THERAPY RANGESSTANDARD DOSE: 2.0 - 3.0 Includes: PROPHYLAXIS forvenous thrombosis, systemic embolization; TREATMENT for venous thrombosis and/or pulmonary embolus.HIGH RISK: Target INR is 2.5-3.5 for patients with mechanical heart valves.CBC (HEMOGRAM ONLY)[id number] 02:42:00 Test Item Value Reference Range Comments WHITE BLOOD CELL COUNT (BEAKER) (test mplk=014) 6.9 K/ L 3.5-10.5 RED BLOOD CELL COUNT (BEAKER) (test lppa=438) 3.13 M/ L 4.63-6.08 HEMOGLOBIN (BEAKER) (test lijn=739) 10.6 GM/DL 13.7-17.5 HEMATOCRIT (BEAKER) (test prtk=204) 32.4 % 40.1-51.0 MEAN CORPUSCULAR VOLUME (BEAKER) (test jhgs=539) 103.5 fL 79.0-92.2 MEAN CORPUSCULAR HEMOGLOBIN (BEAKER) (test 33.9 pg 25.7-32.2 vzbd=823) MEAN CORPUSCULAR HEMOGLOBIN CONC (BEAKER) (test 32.7 GM/DL 32.3-36.5 vpet=501) RED CELL DISTRIBUTION WIDTH (BEAKER) (test 14.9 % 11.6-14.4 dimw=464) PLATELET COUNT (BEAKER) (test ntlv=780) 77 K/CU MM 150-450 MEAN PLATELET VOLUME (BEAKER) (test eisx=040) 8.9 fL 9.4-12.4 NUCLEATED RED BLOOD CELLS (BEAKER) (test 0 /100 WBC 0-0 fqnh=673) POCT-GLUCOSE [id number] 21:26:00 Test Item Value Reference Range Comments POC-GLUCOSE METER (BEAKER) 121 mg/dL 70-110 TESTED AT [address] (test wlyd=3956) [place] [address] [id number] 19:05:00 Test Item Value Reference Range Comments PARTIAL THROMBOPLASTIN TIME (BEAKER) (test 64.0 seconds 22.5-36.0 yksv=067) POCT-GLUCOSE [id number] 17:24:00 Test Item Value Reference Range Comments POC-GLUCOSE METER (BEAKER) 131 mg/dL 70-110 TESTED AT [address] (test bzfn=6859) [place] [address] [id number] 13:32:00 Test Item Value Reference Range Comments PARTIAL THROMBOPLASTIN TIME (BEAKER) (test 81.4 seconds 22.5-36.0 ssun=969) POCT-GLUCOSE [id number] 12:32:00 Test Item Value Reference Range Comments POC-GLUCOSE METER (BEAKER) 102 mg/dL 70-110 TESTED AT [address] (test ohxx=3027) [place] [id number] POCT-GLUCOSE [id number] 07:07:00 Test Item Value Reference Range Comments POC-GLUCOSE METER (BEAKER) 113 mg/dL 70-110 TESTED AT [address] (test mgig=0811) [place] [address] [id number] 05:47:00 Test Item Value Reference Range Comments PARTIAL THROMBOPLASTIN TIME (BEAKER) (test 91.8 seconds 22.5-36.0 wjgb=317) POCT-GLUCOSE [id number] 21:27:00 Test Item Value Reference Range Comments POC-GLUCOSE METER (BEAKER) 90 mg/dL 70-110 TESTED AT [address] (test ztvc=4368) [facility] [address] POCT-GLUCOSE [id number] 17:46:00 Test Item Value Reference Range Comments POC-GLUCOSE METER (BEAKER) 175 mg/dL 70-110 TESTED AT [address] (test gzyh=7812) [place] [id number] POCT-GLUCOSE [id number] 17:30:00 Test Item Value Reference Range Comments POC-GLUCOSE METER (BEAKER) 84 mg/dL 70-110 TESTED AT [address] (test waum=5789) [place] [address] [id number] 13:20:00 Test Item Value Reference Range Comments PARTIAL THROMBOPLASTIN TIME (BEAKER) (test 68.4 seconds 22.5-36.0 thtb=138) BASIC METABOLIC [id number] 10:36:00 Test Item Value Reference Range Comments SODIUM (BEAKER) (test 133 meq/L 136-145 vepw=353) POTASSIUM (BEAKER) (test 4.4 meq/L 3.5-5.1 zyyy=119) CHLORIDE (BEAKER) (test 98 meq/L 98-107 xdwa=835) CO2 (BEAKER) (test 25 meq/L 22-29 spep=856) BLOOD UREA NITROGEN 38 mg/dL 7-21 (BEAKER) (test cwtw=492) CREATININE (BEAKER) (test 6.36 mg/dL 0.57-1.25 riib=300) GLUCOSE RANDOM (BEAKER) 94 mg/dL 70-105 (test atwj=228) CALCIUM (BEAKER) (test 8.8 mg/dL 8.4-10.2 dgdz=330) EGFR (BEAKER) (test 11 mL/min/1.73 sq m ESTIMATED GFR IS NOT agch=7286) ACCURATE CREATININE CLEARANCE IN PREDICTING GLOMERULAR FILTRATION RATE. ESTIMATED GFR IS NOT APPLICABLE FOR DIALYSIS PATIENTS. POCT-GLUCOSE [id number] 07:43:00 Test Item Value Reference Range Comments POC-GLUCOSE METER (BEAKER) 84 mg/dL 70-110 TESTED AT [address] (test karf=3528) [place] [id number] 06:52:00 Test Item Value Reference Range Comments PARTIAL THROMBOPLASTIN TIME (BEAKER) (test 76.5 seconds 22.5-36.0 xvmh=955) PROTHROMBIN [id number] 06:51:00 Test Item Value Reference Range Comments PROTIME (BEAKER) (test ubuo=582) 16.5 seconds 11.7-14.7 INR (BEAKER) (test mwtx=590) 1.3 <=5.9 RECOMMENDED COUMADIN/WARFARIN INR THERAPY RANGESSTANDARD DOSE: 2.0 - 3.0 Includes: PROPHYLAXIS forvenous thrombosis, systemic embolization; TREATMENT for venous thrombosis and/or pulmonary embolus.HIGH RISK: Target INR is 2.5-3.5 for patients with mechanical heart valves.CBC W/PLT COUNT & AUTO [id number] 06:50:00 Test Item Value Reference Range Comments WHITE BLOOD CELL COUNT (BEAKER) (test jchk=570) 8.4 K/ L 3.5-10.5 RED BLOOD CELL COUNT (BEAKER) (test zlni=988) 3.28 M/ L 4.63-6.08 HEMOGLOBIN (BEAKER) (test csgx=290) 10.9 GM/DL 13.7-17.5 HEMATOCRIT (BEAKER) (test rnuy=447) 34.0 % 40.1-51.0 MEAN CORPUSCULAR VOLUME (BEAKER) (test emok=682) 103.7 fL 79.0-92.2 MEAN CORPUSCULAR HEMOGLOBIN (BEAKER) (test 33.2 pg 25.7-32.2 fwxz=138) MEAN CORPUSCULAR HEMOGLOBIN CONC (BEAKER) (test 32.1 GM/DL 32.3-36.5 sqvm=637) RED CELL DISTRIBUTION WIDTH (BEAKER) (test 15.5 % 11.6-14.4 dvio=905) PLATELET COUNT (BEAKER) (test jpfy=603) 83 K/CU MM 150-450 MEAN PLATELET VOLUME (BEAKER) (test uqpw=310) 9.4 fL 9.4-12.4 NUCLEATED RED BLOOD CELLS (BEAKER) (test 0 /100 WBC 0-0 rnnt=486) NEUTROPHILS RELATIVE PERCENT (BEAKER) (test 72 % jlby=689) LYMPHOCYTES RELATIVE PERCENT (BEAKER) (test 16 % ugam=085) MONOCYTES RELATIVE PERCENT (BEAKER) (test 11 % wmnm=669) EOSINOPHILS RELATIVE PERCENT (BEAKER) (test 1 % tshc=104) BASOPHILS RELATIVE PERCENT (BEAKER) (test 1 % bvdy=784) NEUTROPHILS ABSOLUTE COUNT (BEAKER) (test 6.00 K/ L 1.78-5.38 ezww=916) LYMPHOCYTES ABSOLUTE COUNT (BEAKER) (test 1.34 K/ L 1.32-3.57 ruug=915) MONOCYTES ABSOLUTE COUNT (BEAKER) (test xfey=154) 0.88 K/ L 0.30-0.82 EOSINOPHILS ABSOLUTE COUNT (BEAKER) (test 0.05 K/ L 0.04-0.54 xfju=877) BASOPHILS ABSOLUTE COUNT (BEAKER) (test lgov=937) 0.04 K/ L 0.01-0.08 IMMATURE GRANULOCYTES-RELATIVE PERCENT (BEAKER) 1 % 0-1 (test pikb=9422) [id number] 00:11:00 Test Item Value Reference Range Comments PARTIAL THROMBOPLASTIN TIME (BEAKER) (test 59.7 seconds 22.5-36.0 nakt=315) POCT-GLUCOSE [id number] 21:33:00 Test Item Value Reference Range Comments POC-GLUCOSE METER (BEAKER) 113 mg/dL 70-110 TESTED AT [address] (test sgyx=9232) [place] [address] POCT-GLUCOSE [id number] 18:08:00 Test Item Value Reference Range Comments POC-GLUCOSE METER (BEAKER) 128 mg/dL 70-110 TESTED AT [address] (test kcbe=6475) [place] [address] [id number] 16:51:00 Test Item Value Reference Range Comments PARTIAL THROMBOPLASTIN TIME (BEAKER) (test 71.6 seconds 22.5-36.0 ohgg=539) POCT-GLUCOSE [id number] 12:39:00 Test Item Value Reference Range Comments POC-GLUCOSE METER (BEAKER) 124 mg/dL 70-110 TESTED AT [address] (test mxnb=6035) [place] [address] [id number] 09:07:00 Test Item Value Reference Range Comments PARTIAL THROMBOPLASTIN TIME (BEAKER) (test 96.6 seconds 22.5-36.0 xziv=101) POCT-GLUCOSE [id number] 07:48:00 Test Item Value Reference Range Comments POC-GLUCOSE METER (BEAKER) 105 mg/dL 70-110 TESTED AT [facility] [address] (test xnfw=7434) [facility] [address] BASIC METABOLIC [id number] 01:54:00 Test Item Value Reference Range Comments SODIUM (BEAKER) (test 138 meq/L 136-145 qrxw=054) POTASSIUM (BEAKER) (test 3.9 meq/L 3.5-5.1 drzs=878) CHLORIDE (BEAKER) (test 100 meq/L 98-107 yshh=864) CO2 (BEAKER) (test 30 meq/L 22-29 lqaw=857) BLOOD UREA NITROGEN 22 mg/dL 7-21 (BEAKER) (test jiqz=743) CREATININE (BEAKER) (test 4.23 mg/dL 0.57-1.25 rznx=936) GLUCOSE RANDOM (BEAKER) 132 mg/dL 70-105 (test rgzw=602) CALCIUM (BEAKER) (test 8.6 mg/dL 8.4-10.2 wsat=772) EGFR (BEAKER) (test 17 mL/min/1.73 sq m ESTIMATED GFR IS NOT eaxm=4438) ACCURATE CREATININE CLEARANCE IN PREDICTING GLOMERULAR FILTRATION RATE. ESTIMATED GFR IS NOT APPLICABLE FOR DIALYSIS PATIENTS. [id number] 01:37:00 Test Item Value Reference Range Comments PARTIAL THROMBOPLASTIN TIME (BEAKER) (test 53.4 seconds 22.5-36.0 cymy=472) PROTHROMBIN [id number] 01:36:00 Test Item Value Reference Range Comments PROTIME (BEAKER) (test sukb=618) 18.1 seconds 11.7-14.7 INR (BEAKER) (test fgup=750) 1.5 <=5.9 RECOMMENDED COUMADIN/WARFARIN INR THERAPY RANGESSTANDARD DOSE: 2.0 - 3.0 Includes: PROPHYLAXIS forvenous thrombosis, systemic embolization; TREATMENT for venous thrombosis and/or pulmonary embolus.HIGH RISK: Target INR is 2.5-3.5 for patients with mechanical heart valves.CBC W/PLT COUNT & AUTO [id number] 01:22:00 Test Item Value Reference Range Comments WHITE BLOOD CELL COUNT (BEAKER) (test dthu=611) 9.0 K/ L 3.5-10.5 RED BLOOD CELL COUNT (BEAKER) (test barw=900) 3.25 M/ L 4.63-6.08 HEMOGLOBIN (BEAKER) (test ivbp=999) 10.8 GM/DL 13.7-17.5 HEMATOCRIT (BEAKER) (test otpd=210) 33.7 % 40.1-51.0 MEAN CORPUSCULAR VOLUME (BEAKER) (test slxn=254) 103.7 fL 79.0-92.2 MEAN CORPUSCULAR HEMOGLOBIN (BEAKER) (test 33.2 pg 25.7-32.2 sgec=117) MEAN CORPUSCULAR HEMOGLOBIN CONC (BEAKER) (test 32.0 GM/DL 32.3-36.5 cyzr=208) RED CELL DISTRIBUTION WIDTH (BEAKER) (test 15.9 % 11.6-14.4 zhge=003) PLATELET COUNT (BEAKER) (test oczi=233) 89 K/CU MM 150-450 MEAN PLATELET VOLUME (BEAKER) (test riqr=522) 9.5 fL 9.4-12.4 NUCLEATED RED BLOOD CELLS (BEAKER) (test 0 /100 WBC 0-0 ealf=230) NEUTROPHILS RELATIVE PERCENT (BEAKER) (test 70 % afak=996) LYMPHOCYTES RELATIVE PERCENT (BEAKER) (test 15 % jekm=676) MONOCYTES RELATIVE PERCENT (BEAKER) (test 13 % sjgt=805) EOSINOPHILS RELATIVE PERCENT (BEAKER) (test 0 % zmhs=522) BASOPHILS RELATIVE PERCENT (BEAKER) (test 0 % vjuu=041) NEUTROPHILS ABSOLUTE COUNT (BEAKER) (test 6.28 K/ L 1.78-5.38 ncro=671) LYMPHOCYTES ABSOLUTE COUNT (BEAKER) (test 1.37 K/ L 1.32-3.57 krac=172) MONOCYTES ABSOLUTE COUNT (BEAKER) (test jhkv=760) 1.15 K/ L 0.30-0.82 EOSINOPHILS ABSOLUTE COUNT (BEAKER) (test 0.04 K/ L 0.04-0.54 wkql=494) BASOPHILS ABSOLUTE COUNT (BEAKER) (test yuts=885) 0.04 K/ L 0.01-0.08 IMMATURE GRANULOCYTES-RELATIVE PERCENT (BEAKER) 1 % 0-1 (test cynf=8290) POCT-GLUCOSE [id number] 21:57:00 Test Item Value Reference Range Comments POC-GLUCOSE METER (BEAKER) 165 mg/dL 70-110 TESTED AT [address] (test awhb=6523) [place] [address] [id number] 18:46:00 Test Item Value Reference Range Comments PARTIAL THROMBOPLASTIN TIME (BEAKER) (test 39.0 seconds 22.5-36.0 afxn=237) POCT-GLUCOSE [id number] 17:51:00 Test Item Value Reference Range Comments POC-GLUCOSE METER (BEAKER) 157 mg/dL 70-110 TESTED AT [address] (test lgjl=6309) [place] [address] POCT-GLUCOSE [id number] 17:09:00 Test Item Value Reference Range Comments POC-GLUCOSE METER (BEAKER) 162 mg/dL 70-110 TESTED AT [address] (test rfgz=4325) [place] [address] [id number] 16:07:00 Test Item Value Reference Range Comments PARTIAL THROMBOPLASTIN TIME (BEAKER) (test 117.0 seconds 22.5-36.0 aoyt=926) POCT-GLUCOSE [id number] 13:28:00 Test Item Value Reference Range Comments POC-GLUCOSE METER (BEAKER) 88 mg/dL 70-110 TESTED AT [address] (test laso=2169) [place] [address] [id number] 09:17:00 Test Item Value Reference Range Comments PARTIAL THROMBOPLASTIN TIME (BEAKER) (test 71.7 seconds 22.5-36.0 cfzz=517) POCT-GLUCOSE [id number] 08:07:00 Test Item Value Reference Range Comments POC-GLUCOSE METER (BEAKER) 137 mg/dL 70-110 TESTED AT [address] (test kmmd=6499) [place] [address] [id number] 02:27:00 Test Item Value Reference Range Comments PARTIAL THROMBOPLASTIN TIME (BEAKER) (test 62.4 seconds 22.5-36.0 toos=870) PROTHROMBIN [id number] 02:26:00 Test Item Value Reference Range Comments PROTIME (BEAKER) (test tofj=476) 20.0 seconds 11.7-14.7 INR (BEAKER) (test mpuo=784) 1.7 <=5.9 RECOMMENDED COUMADIN/WARFARIN INR THERAPY RANGESSTANDARD DOSE: 2.0 - 3.0 Includes: PROPHYLAXIS forvenous thrombosis, systemic embolization; TREATMENT for venous thrombosis and/or pulmonary embolus.HIGH RISK: Target INR is 2.5-3.5 for patients with mechanical heart valves.BASIC METABOLIC [id number] 02:02: 00 Test Item Value Reference Range Comments SODIUM (BEAKER) (test 139 meq/L 136-145 vhos=888) POTASSIUM (BEAKER) (test 4.1 meq/L 3.5-5.1 gkvf=666) CHLORIDE (BEAKER) (test 100 meq/L 98-107 lspb=784) CO2 (BEAKER) (test 25 meq/L 22-29 vzpg=205) BLOOD UREA NITROGEN 48 mg/dL 7-21 (BEAKER) (test jbse=064) CREATININE (BEAKER) (test 6.50 mg/dL 0.57-1.25 bmhx=764) GLUCOSE RANDOM (BEAKER) 127 mg/dL 70-105 (test kqxo=028) CALCIUM (BEAKER) (test 8.7 mg/dL 8.4-10.2 dcnu=876) EGFR (BEAKER) (test 11 mL/min/1.73 sq m ESTIMATED GFR IS NOT ajar=2238) ACCURATE CREATININE CLEARANCE IN PREDICTING GLOMERULAR FILTRATION RATE. ESTIMATED GFR IS NOT APPLICABLE FOR DIALYSIS PATIENTS. CBC W/PLT COUNT & AUTO [id number] 01:42:00 Test Item Value Reference Range Comments WHITE BLOOD CELL COUNT (BEAKER) (test qcfm=466) 9.1 K/ L 3.5-10.5 RED BLOOD CELL COUNT (BEAKER) (test eahh=146) 3.22 M/ L 4.63-6.08 HEMOGLOBIN (BEAKER) (test wvqp=575) 10.8 GM/DL 13.7-17.5 HEMATOCRIT (BEAKER) (test cbly=864) 33.5 % 40.1-51.0 MEAN CORPUSCULAR VOLUME (BEAKER) (test sjbw=890) 104.0 fL 79.0-92.2 MEAN CORPUSCULAR HEMOGLOBIN (BEAKER) (test 33.5 pg 25.7-32.2 aizv=322) MEAN CORPUSCULAR HEMOGLOBIN CONC (BEAKER) (test 32.2 GM/DL 32.3-36.5 qrdy=614) RED CELL DISTRIBUTION WIDTH (BEAKER) (test 16.0 % 11.6-14.4 vuwo=021) PLATELET COUNT (BEAKER) (test kybk=138) 94 K/CU MM 150-450 MEAN PLATELET VOLUME (BEAKER) (test qkwm=812) 9.9 fL 9.4-12.4 NUCLEATED RED BLOOD CELLS (BEAKER) (test 0 /100 WBC 0-0 tbsh=620) NEUTROPHILS RELATIVE PERCENT (BEAKER) (test 73 % hrju=783) LYMPHOCYTES RELATIVE PERCENT (BEAKER) (test 13 % bbgx=007) MONOCYTES RELATIVE PERCENT (BEAKER) (test 11 % sffu=406) EOSINOPHILS RELATIVE PERCENT (BEAKER) (test 0 % jpjy=786) BASOPHILS RELATIVE PERCENT (BEAKER) (test 0 % grai=281) NEUTROPHILS ABSOLUTE COUNT (BEAKER) (test 6.63 K/ L 1.78-5.38 bobj=462) LYMPHOCYTES ABSOLUTE COUNT (BEAKER) (test 1.14 K/ L 1.32-3.57 vjrs=911) MONOCYTES ABSOLUTE COUNT (BEAKER) (test lbtw=556) 1.03 K/ L 0.30-0.82 EOSINOPHILS ABSOLUTE COUNT (BEAKER) (test 0.04 K/ L 0.04-0.54 anks=969) BASOPHILS ABSOLUTE COUNT (BEAKER) (test zfpl=872) 0.03 K/ L 0.01-0.08 IMMATURE GRANULOCYTES-RELATIVE PERCENT (BEAKER) 2 % 0-1 (test nrqx=2089) POCT-GLUCOSE [id number] 21:12:00 Test Item Value Reference Range Comments POC-GLUCOSE METER (BEAKER) 199 mg/dL 70-110 TESTED AT [address] (test hdrh=4832) [facility] [address] POCT-GLUCOSE [id number] 17:39:00 Test Item Value Reference Range Comments POC-GLUCOSE METER (BEAKER) 145 mg/dL 70-110 TESTED AT [address] (test ncol=3997) [facility] [address] [id number] 17:33:00 Test Item Value Reference Range Comments PARTIAL THROMBOPLASTIN TIME (BEAKER) (test 47.3 seconds 22.5-36.0 iooo=184) POCT-GLUCOSE [id number] 12:53:00 Test Item Value Reference Range Comments POC-GLUCOSE METER (BEAKER) 203 mg/dL 70-110 TESTED AT [facility] [address] [facility] (test geql=6373) [facility] [address] POCT-GLUCOSE [id number] 08:28:00 Test Item Value Reference Range Comments POC-GLUCOSE METER (BEAKER) 98 mg/dL 70-110 TESTED AT [place] [id number] [facility] (test ksmt=8088) [facility] [address] BASIC METABOLIC [id number] 05:52:00 Test Item Value Reference Range Comments SODIUM (BEAKER) (test 135 meq/L 136-145 upzq=508) POTASSIUM (BEAKER) (test 4.0 meq/L 3.5-5.1 lljf=984) CHLORIDE (BEAKER) (test 97 meq/L 98-107 yaxs=079) CO2 (BEAKER) (test 26 meq/L 22-29 spuz=000) BLOOD UREA NITROGEN 31 mg/dL 7-21 (BEAKER) (test zywp=519) CREATININE (BEAKER) (test 4.88 mg/dL 0.57-1.25 pmue=479) GLUCOSE RANDOM (BEAKER) 135 mg/dL 70-105 (test fywq=922) CALCIUM (BEAKER) (test 8.9 mg/dL 8.4-10.2 coyr=213) EGFR (BEAKER) (test 15 mL/min/1.73 sq m ESTIMATED GFR IS NOT ycba=2961) ACCURATE CREATININE CLEARANCE IN PREDICTING GLOMERULAR FILTRATION RATE. ESTIMATED GFR IS NOT APPLICABLE FOR DIALYSIS PATIENTS. PROTHROMBIN TIME/[id number] 05:51:00 Test Item Value Reference Range Comments PROTIME (BEAKER) (test ewku=341) 22.9 seconds 11.7-14.7 INR (BEAKER) (test ejve=597) 2.0 <=5.9 RECOMMENDED COUMADIN/WARFARIN INR THERAPY RANGESSTANDARD DOSE: 2.0 - 3.0 Includes: PROPHYLAXIS forvenous thrombosis, systemic embolization; TREATMENT for venous thrombosis and/or pulmonary embolus.HIGH RISK: Target INR is 2.5-3.5 for patients with mechanical heart valves.CBC W/PLT COUNT & AUTO [id number] 05:31:00 Test Item Value Reference Range Comments WHITE BLOOD CELL COUNT (BEAKER) (test gyzf=308) 8.3 K/ L 3.5-10.5 RED BLOOD CELL COUNT (BEAKER) (test ennh=312) 3.29 M/ L 4.63-6.08 HEMOGLOBIN (BEAKER) (test cwwp=373) 10.8 GM/DL 13.7-17.5 HEMATOCRIT (BEAKER) (test juhp=580) 34.1 % 40.1-51.0 MEAN CORPUSCULAR VOLUME (BEAKER) (test ifju=004) 103.6 fL 79.0-92.2 MEAN CORPUSCULAR HEMOGLOBIN (BEAKER) (test 32.8 pg 25.7-32.2 rpga=016) MEAN CORPUSCULAR HEMOGLOBIN CONC (BEAKER) (test 31.7 GM/DL 32.3-36.5 uthm=415) RED CELL DISTRIBUTION WIDTH (BEAKER) (test 16.4 % 11.6-14.4 cepm=639) PLATELET COUNT (BEAKER) (test hqhy=040) 105 K/CU MM 150-450 MEAN PLATELET VOLUME (BEAKER) (test wrib=463) 9.7 fL 9.4-12.4 NUCLEATED RED BLOOD CELLS (BEAKER) (test 0 /100 WBC 0-0 vhvj=945) NEUTROPHILS RELATIVE PERCENT (BEAKER) (test 76 % jcdj=794) LYMPHOCYTES RELATIVE PERCENT (BEAKER) (test 10 % skqe=646) MONOCYTES RELATIVE PERCENT (BEAKER) (test 13 % aggu=370) EOSINOPHILS RELATIVE PERCENT (BEAKER) (test 0 % qjwy=127) BASOPHILS RELATIVE PERCENT (BEAKER) (test 0 % npcr=476) NEUTROPHILS ABSOLUTE COUNT (BEAKER) (test 6.32 K/ L 1.78-5.38 apwa=487) LYMPHOCYTES ABSOLUTE COUNT (BEAKER) (test 0.85 K/ L 1.32-3.57 ckhf=249) MONOCYTES ABSOLUTE COUNT (BEAKER) (test 1.04 K/ L 0.30-0.82 vtvr=729) EOSINOPHILS ABSOLUTE COUNT (BEAKER) (test 0.02 K/ L 0.04-0.54 kwgw=324) BASOPHILS ABSOLUTE COUNT (BEAKER) (test 0.02 K/ L 0.01-0.08 bqep=325) IMMATURE GRANULOCYTES-RELATIVE PERCENT (BEAKER) 1 % 0-1 (test hzwl=5820) POCT-GLUCOSE [id number] 20:54:00 Test Item Value Reference Range Comments POC-GLUCOSE METER (BEAKER) 126 mg/dL 70-110 TESTED AT [address] (test xkfr=3686) [place] [address] POCT-GLUCOSE [id number] 18:47:00 Test Item Value Reference Range Comments POC-GLUCOSE METER (BEAKER) 70 mg/dL 70-110 TESTED AT [address] (test onxs=9143) [place] [address] POCT-GLUCOSE [id number] 13:25:00 Test Item Value Reference Range Comments POC-GLUCOSE METER (BEAKER) 120 mg/dL 70-110 TESTED AT [address] (test xlzk=4175) [place] [address] POCT-GLUCOSE [id number] 09:32:00 Test Item Value Reference Range Comments POC-GLUCOSE METER (BEAKER) 104 mg/dL 70-110 TESTED AT [address] (test dblc=6198) [place] [address] BASIC METABOLIC [id number] 05:59:00 Test Item Value Reference Range Comments SODIUM (BEAKER) (test 132 meq/L 136-145 hjnw=590) POTASSIUM (BEAKER) (test 4.4 meq/L 3.5-5.1 sdxg=061) CHLORIDE (BEAKER) (test 93 meq/L 98-107 fjzp=570) CO2 (BEAKER) (test 24 meq/L 22-29 pczi=668) BLOOD UREA NITROGEN 68 mg/dL 7-21 (BEAKER) (test dehy=748) CREATININE (BEAKER) (test 7.47 mg/dL 0.57-1.25 ijuy=050) GLUCOSE RANDOM (BEAKER) 112 mg/dL 70-105 (test ujyc=280) CALCIUM (BEAKER) (test 8.9 mg/dL 8.4-10.2 shvv=516) EGFR (BEAKER) (test 9 mL/min/1.73 sq m ESTIMATED GFR IS NOT lmtu=1335) ACCURATE CREATININE CLEARANCE IN PREDICTING GLOMERULAR FILTRATION RATE. ESTIMATED GFR IS NOT APPLICABLE FOR DIALYSIS PATIENTS. PROTHROMBIN [id number] 05:20:00 Test Item Value Reference Range Comments PROTIME (BEAKER) (test elbs=318) 30.5 seconds 11.7-14.7 INR (BEAKER) (test mxei=879) 2.9 <=5.9 RECOMMENDED COUMADIN/WARFARIN INR THERAPY RANGESSTANDARD DOSE: 2.0 - 3.0 Includes: PROPHYLAXIS forvenous thrombosis, systemic embolization; TREATMENT for venous thrombosis and/or pulmonary embolus.HIGH RISK: Target INR is 2.5-3.5 for patients with mechanical heart valves.CBC W/PLT COUNT & AUTO [id number] 05:13:00 Test Item Value Reference Range Comments WHITE BLOOD CELL COUNT (BEAKER) (test jabd=576) 8.1 K/ L 3.5-10.5 RED BLOOD CELL COUNT (BEAKER) (test tpja=784) 3.29 M/ L 4.63-6.08 HEMOGLOBIN (BEAKER) (test jgkl=368) 10.9 GM/DL 13.7-17.5 HEMATOCRIT (BEAKER) (test lsmb=674) 33.7 % 40.1-51.0 MEAN CORPUSCULAR VOLUME (BEAKER) (test bhsp=804) 102.4 fL 79.0-92.2 MEAN CORPUSCULAR HEMOGLOBIN (BEAKER) (test 33.1 pg 25.7-32.2 pvnk=133) MEAN CORPUSCULAR HEMOGLOBIN CONC (BEAKER) (test 32.3 GM/DL 32.3-36.5 ljpg=463) RED CELL DISTRIBUTION WIDTH (BEAKER) (test 16.1 % 11.6-14.4 ylgc=978) PLATELET COUNT (BEAKER) (test gudk=663) 115 K/CU MM 150-450 MEAN PLATELET VOLUME (BEAKER) (test lhvd=162) 9.3 fL 9.4-12.4 NUCLEATED RED BLOOD CELLS (BEAKER) (test 0 /100 WBC 0-0 zllv=536) NEUTROPHILS RELATIVE PERCENT (BEAKER) (test 77 % pwof=536) LYMPHOCYTES RELATIVE PERCENT (BEAKER) (test 11 % awxq=230) MONOCYTES RELATIVE PERCENT (BEAKER) (test 11 % ehns=945) EOSINOPHILS RELATIVE PERCENT (BEAKER) (test 0 % ylsd=491) BASOPHILS RELATIVE PERCENT (BEAKER) (test 0 % nbqu=381) NEUTROPHILS ABSOLUTE COUNT (BEAKER) (test 6.20 K/ L 1.78-5.38 ogvr=650) LYMPHOCYTES ABSOLUTE COUNT (BEAKER) (test 0.90 K/ L 1.32-3.57 kgsz=222) MONOCYTES ABSOLUTE COUNT (BEAKER) (test 0.89 K/ L 0.30-0.82 kwej=099) EOSINOPHILS ABSOLUTE COUNT (BEAKER) (test 0.02 K/ L 0.04-0.54 xhem=607) BASOPHILS ABSOLUTE COUNT (BEAKER) (test 0.02 K/ L 0.01-0.08 dqyv=869) IMMATURE GRANULOCYTES-RELATIVE PERCENT (BEAKER) 1 % 0-1 (test akwy=8663) POCT-GLUCOSE [id number] 21:14:00 Test Item Value Reference Range Comments POC-GLUCOSE METER (BEAKER) 200 mg/dL 70-110 TESTED AT [address] (test qfix=2842) [place] [id number] POCT-GLUCOSE [id number] 17:34:00 Test Item Value Reference Range Comments POC-GLUCOSE METER (BEAKER) 143 mg/dL 70-110 TESTED AT [address] (test olwq=7626) [place] [id number] POCT-GLUCOSE [id number] 12:04:00 Test Item Value Reference Range Comments POC-GLUCOSE METER (BEAKER) 160 mg/dL 70-110 TESTED AT [address] (test tznu=9585) [place] [id number] POCT-GLUCOSE [id number] 08:08:00 Test Item Value Reference Range Comments POC-GLUCOSE METER (BEAKER) 154 mg/dL 70-110 TESTED AT [address] (test lgmp=0548) [place] [id number] BASIC METABOLIC [id number] 06:33:00 Test Item Value Reference Range Comments SODIUM (BEAKER) (test 135 meq/L 136-145 ynhi=747) POTASSIUM (BEAKER) (test 4.2 meq/L 3.5-5.1 dasr=756) CHLORIDE (BEAKER) (test 95 meq/L 98-107 udxq=667) CO2 (BEAKER) (test 25 meq/L 22-29 fqys=414) BLOOD UREA NITROGEN 55 mg/dL 7-21 (BEAKER) (test fdwb=557) CREATININE (BEAKER) (test 6.11 mg/dL 0.57-1.25 wsgl=171) GLUCOSE RANDOM (BEAKER) 120 mg/dL 70-105 (test xabw=395) CALCIUM (BEAKER) (test 9.2 mg/dL 8.4-10.2 qylf=294) EGFR (BEAKER) (test 11 mL/min/1.73 sq m ESTIMATED GFR IS NOT qzxc=2978) ACCURATE CREATININE CLEARANCE IN PREDICTING GLOMERULAR FILTRATION RATE. ESTIMATED GFR IS NOT APPLICABLE FOR DIALYSIS PATIENTS. [id number] 06:01:00 Test Item Value Reference Range Comments PARTIAL THROMBOPLASTIN TIME (BEAKER) (test 117.2 seconds 22.5-36.0 jeaa=521) PROTHROMBIN [id number] 05:56:00 Test Item Value Reference Range Comments PROTIME (BEAKER) (test gczz=795) 30.8 seconds 11.7-14.7 INR (BEAKER) (test nzsj=286) 3.0 <=5.9 RECOMMENDED COUMADIN/WARFARIN INR THERAPY RANGESSTANDARD DOSE: 2.0 - 3.0 Includes: PROPHYLAXIS forvenous thrombosis, systemic embolization; TREATMENT for venous thrombosis and/or pulmonary embolus.HIGH RISK: Target INR is 2.5-3.5 for patients with mechanical heart valves.CBC W/PLT COUNT & AUTO [id number] 05:46:00 Test Item Value Reference Range Comments WHITE BLOOD CELL COUNT (BEAKER) (test tsqg=882) 7.6 K/ L 3.5-10.5 RED BLOOD CELL COUNT (BEAKER) (test wjpn=219) 3.30 M/ L 4.63-6.08 HEMOGLOBIN (BEAKER) (test hvbp=752) 11.0 GM/DL 13.7-17.5 HEMATOCRIT (BEAKER) (test dcra=615) 34.1 % 40.1-51.0 MEAN CORPUSCULAR VOLUME (BEAKER) (test ozme=881) 103.3 fL 79.0-92.2 MEAN CORPUSCULAR HEMOGLOBIN (BEAKER) (test 33.3 pg 25.7-32.2 fhzl=665) MEAN CORPUSCULAR HEMOGLOBIN CONC (BEAKER) (test 32.3 GM/DL 32.3-36.5 mhae=432) RED CELL DISTRIBUTION WIDTH (BEAKER) (test 16.1 % 11.6-14.4 kgva=687) PLATELET COUNT (BEAKER) (test wirq=984) 119 K/CU MM 150-450 MEAN PLATELET VOLUME (BEAKER) (test lage=677) 9.2 fL 9.4-12.4 NUCLEATED RED BLOOD CELLS (BEAKER) (test 0 /100 WBC 0-0 vgyl=256) NEUTROPHILS RELATIVE PERCENT (BEAKER) (test 73 % yocn=662) LYMPHOCYTES RELATIVE PERCENT (BEAKER) (test 13 % yzwn=244) MONOCYTES RELATIVE PERCENT (BEAKER) (test 13 % yikx=840) EOSINOPHILS RELATIVE PERCENT (BEAKER) (test 0 % uekp=123) BASOPHILS RELATIVE PERCENT (BEAKER) (test 0 % pjzs=869) NEUTROPHILS ABSOLUTE COUNT (BEAKER) (test 5.57 K/ L 1.78-5.38 fuyh=760) LYMPHOCYTES ABSOLUTE COUNT (BEAKER) (test 1.01 K/ L 1.32-3.57 vtrr=301) MONOCYTES ABSOLUTE COUNT (BEAKER) (test 0.96 K/ L 0.30-0.82 sxnu=889) EOSINOPHILS ABSOLUTE COUNT (BEAKER) (test 0.01 K/ L 0.04-0.54 paqb=177) BASOPHILS ABSOLUTE COUNT (BEAKER) (test 0.01 K/ L 0.01-0.08 qhxo=845) IMMATURE GRANULOCYTES-RELATIVE PERCENT (BEAKER) 1 % 0-1 (test dryn=7172) POCT-GLUCOSE [id number] 21:37:00 Test Item Value Reference Range Comments POC-GLUCOSE METER (BEAKER) 121 mg/dL 70-110 TESTED AT [address] (test fvdb=0200) [facility] [address] POCT-GLUCOSE [id number] 19:01:00 Test Item Value Reference Range Comments POC-GLUCOSE METER (BEAKER) 191 mg/dL 70-110 TESTED AT [address] (test bcvk=4143) [facility] [address] [id number] 18:31:00 Test Item Value Reference Range Comments PARTIAL THROMBOPLASTIN TIME (BEAKER) (test 86.2 seconds 22.5-36.0 rrlk=259) POCT-GLUCOSE [id number] 13:05:00 Test Item Value Reference Range Comments POC-GLUCOSE METER (BEAKER) 130 mg/dL 70-110 TESTED AT [address] (test iwov=9817) [facility] [address] RAD, CHEST, 1 VIEW, NON [id number] 12:22:00Reason for exam:->pleural effusionsShould this be performed [...] MDReport Verified Date/Time: 12/07/2018 12:22:50 Reading Location: [address] Neuro Reading Room [id number] 11:39:00 Test Item Value Reference Range Comments PARTIAL THROMBOPLASTIN TIME (BEAKER) (test 100.1 seconds 22.5-36.0 wmxf=987) BODY FLUID CULTURE + GRAM [id number] 10:13:00 Test Item Value Reference Range Comments CULTURE (BEAKER) (test bwdi=9577) No growth GRAM STAIN RESULT (BEAKER) (test <1+ White blood cells seen vdyn=1060) GRAM STAIN RESULT (BEAKER) (test No organisms seen lxkq=65742) POCT-GLUCOSE [id number] 08:51:00 Test Item Value Reference Range Comments POC-GLUCOSE METER (BEAKER) 90 mg/dL 70-110 TESTED AT [address] (test kevu=4637) [facility] [address] BASIC METABOLIC [id number] 07:31:00 Test Item Value Reference Range Comments SODIUM (BEAKER) (test 136 meq/L 136-145 yfvy=138) POTASSIUM (BEAKER) (test 3.8 meq/L 3.5-5.1 mffh=205) CHLORIDE (BEAKER) (test 97 meq/L 98-107 thyy=995) CO2 (BEAKER) (test 27 meq/L 22-29 hazj=676) BLOOD UREA NITROGEN 36 mg/dL 7-21 (BEAKER) (test gxkd=459) CREATININE (BEAKER) (test 4.44 mg/dL 0.57-1.25 hwdf=766) GLUCOSE RANDOM (BEAKER) 76 mg/dL 70-105 (test ohkn=030) CALCIUM (BEAKER) (test 9.2 mg/dL 8.4-10.2 ydds=450) EGFR (BEAKER) (test 16 mL/min/1.73 sq m ESTIMATED GFR IS NOT iowx=8454) ACCURATE CREATININE CLEARANCE IN PREDICTING GLOMERULAR FILTRATION RATE. ESTIMATED GFR IS NOT APPLICABLE FOR DIALYSIS PATIENTS. [id number] 05:21:00 Test Item Value Reference Range Comments PARTIAL THROMBOPLASTIN TIME (BEAKER) (test 104.0 seconds 22.5-36.0 ckhl=709) PROTHROMBIN [id number] 04:50:00 Test Item Value Reference Range Comments PROTIME (BEAKER) (test sfxy=759) 23.7 seconds 11.7-14.7 INR (BEAKER) (test mnfz=261) 2.1 <=5.9 RECOMMENDED COUMADIN/WARFARIN INR THERAPY RANGESSTANDARD DOSE: 2.0 - 3.0 Includes: PROPHYLAXIS forvenous thrombosis, systemic embolization; TREATMENT for venous thrombosis and/or pulmonary embolus.HIGH RISK: Target INR is 2.5-3.5 for patients with mechanical heart valves.CBC W/PLT COUNT & AUTO [id number] 04:37:00 Test Item Value Reference Range Comments WHITE BLOOD CELL COUNT (BEAKER) (test oqsa=801) 9.1 K/ L 3.5-10.5 RED BLOOD CELL COUNT (BEAKER) (test aden=449) 3.27 M/ L 4.63-6.08 HEMOGLOBIN (BEAKER) (test dchg=973) 10.9 GM/DL 13.7-17.5 HEMATOCRIT (BEAKER) (test hwhx=128) 33.0 % 40.1-51.0 MEAN CORPUSCULAR VOLUME (BEAKER) (test mijj=340) 100.9 fL 79.0-92.2 MEAN CORPUSCULAR HEMOGLOBIN (BEAKER) (test 33.3 pg 25.7-32.2 jztn=249) MEAN CORPUSCULAR HEMOGLOBIN CONC (BEAKER) (test 33.0 GM/DL 32.3-36.5 inom=565) RED CELL DISTRIBUTION WIDTH (BEAKER) (test 15.6 % 11.6-14.4 lnhn=659) PLATELET COUNT (BEAKER) (test agrs=233) 140 K/CU MM 150-450 MEAN PLATELET VOLUME (BEAKER) (test mebl=123) 9.3 fL 9.4-12.4 NUCLEATED RED BLOOD CELLS (BEAKER) (test 0 /100 WBC 0-0 qmjw=271) NEUTROPHILS RELATIVE PERCENT (BEAKER) (test 80 % tnon=918) LYMPHOCYTES RELATIVE PERCENT (BEAKER) (test 9 % gdoo=324) MONOCYTES RELATIVE PERCENT (BEAKER) (test 10 % rwdd=379) EOSINOPHILS RELATIVE PERCENT (BEAKER) (test 0 % vqad=531) BASOPHILS RELATIVE PERCENT (BEAKER) (test 0 % yuuy=382) NEUTROPHILS ABSOLUTE COUNT (BEAKER) (test 7.26 K/ L 1.78-5.38 pggi=858) LYMPHOCYTES ABSOLUTE COUNT (BEAKER) (test 0.82 K/ L 1.32-3.57 tpxv=259) MONOCYTES ABSOLUTE COUNT (BEAKER) (test 0.94 K/ L 0.30-0.82 eqnx=451) EOSINOPHILS ABSOLUTE COUNT (BEAKER) (test 0.01 K/ L 0.04-0.54 kdax=106) BASOPHILS ABSOLUTE COUNT (BEAKER) (test 0.01 K/ L 0.01-0.08 uqjh=535) IMMATURE GRANULOCYTES-RELATIVE PERCENT (BEAKER) 1 % 0-1 (test fkfu=7616) [id number] 20:33:00 Test Item Value Reference Range Comments PARTIAL THROMBOPLASTIN TIME (BEAKER) (test 87.6 seconds 22.5-36.0 doct=521) POCT-GLUCOSE [id number] 19:30:00 Test Item Value Reference Range Comments POC-GLUCOSE METER (BEAKER) 112 mg/dL 70-110 TESTED AT [address] (test ybkm=1862) [facility] [address] [id number] 13:55:00 Test Item Value Reference Range Comments PARTIAL THROMBOPLASTIN TIME (BEAKER) (test 85.9 seconds 22.5-36.0 qalk=437) POCT-GLUCOSE [id number] 09:12:00 Test Item Value Reference Range Comments POC-GLUCOSE METER (BEAKER) 112 mg/dL 70-110 TESTED AT [address] (test nkxq=6059) [facility] [address] BASIC METABOLIC [id number] 08:53:00 Test Item Value Reference Range Comments SODIUM (BEAKER) (test 134 meq/L 136-145 hndy=684) POTASSIUM (BEAKER) (test 3.8 meq/L 3.5-5.1 lyzz=443) CHLORIDE (BEAKER) (test 96 meq/L 98-107 dvii=322) CO2 (BEAKER) (test 23 meq/L 22-29 vawa=891) BLOOD UREA NITROGEN 81 mg/dL 7-21 (BEAKER) (test ychu=549) CREATININE (BEAKER) (test 7.04 mg/dL 0.57-1.25 lbzr=461) GLUCOSE RANDOM (BEAKER) 122 mg/dL 70-105 (test yetk=311) CALCIUM (BEAKER) (test 9.0 mg/dL 8.4-10.2 xjwa=803) EGFR (BEAKER) (test 10 mL/min/1.73 sq m ESTIMATED GFR IS NOT aazx=6369) ACCURATE CREATININE CLEARANCE IN PREDICTING GLOMERULAR FILTRATION RATE. ESTIMATED GFR IS NOT APPLICABLE FOR DIALYSIS PATIENTS. [id number] 06:04:00 Test Item Value Reference Range Comments PARTIAL THROMBOPLASTIN TIME (BEAKER) (test 105.5 seconds 22.5-36.0 soxc=013) PROTHROMBIN TIME/[id number] 05:44:00 Test Item Value Reference Range Comments PROTIME (BEAKER) (test appf=874) 17.9 seconds 11.7-14.7 INR (BEAKER) (test nqto=827) 1.5 <=5.9 RECOMMENDED COUMADIN/WARFARIN INR THERAPY RANGESSTANDARD DOSE: 2.0 - 3.0 Includes: PROPHYLAXIS forvenous thrombosis, systemic embolization; TREATMENT for venous thrombosis and/or pulmonary embolus.HIGH RISK: Target INR is 2.5-3.5 for patients with mechanical heart valves.CBC W/PLT COUNT & AUTO [id number] 05:22:00 Test Item Value Reference Range Comments WHITE BLOOD CELL COUNT (BEAKER) (test qzms=415) 9.4 K/ L 3.5-10.5 RED BLOOD CELL COUNT (BEAKER) (test bucu=038) 3.41 M/ L 4.63-6.08 HEMOGLOBIN (BEAKER) (test oeso=842) 11.2 GM/DL 13.7-17.5 HEMATOCRIT (BEAKER) (test jjyp=441) 34.7 % 40.1-51.0 MEAN CORPUSCULAR VOLUME (BEAKER) (test dajy=879) 101.8 fL 79.0-92.2 MEAN CORPUSCULAR HEMOGLOBIN (BEAKER) (test 32.8 pg 25.7-32.2 ecae=230) MEAN CORPUSCULAR HEMOGLOBIN CONC (BEAKER) (test 32.3 GM/DL 32.3-36.5 utqz=237) RED CELL DISTRIBUTION WIDTH (BEAKER) (test 15.5 % 11.6-14.4 hhpo=206) PLATELET COUNT (BEAKER) (test htkg=722) 150 K/CU MM 150-450 MEAN PLATELET VOLUME (BEAKER) (test rtgl=801) 8.7 fL 9.4-12.4 NUCLEATED RED BLOOD CELLS (BEAKER) (test 0 /100 WBC 0-0 lhwt=299) NEUTROPHILS RELATIVE PERCENT (BEAKER) (test 78 % ikqx=528) LYMPHOCYTES RELATIVE PERCENT (BEAKER) (test 10 % qjzl=778) MONOCYTES RELATIVE PERCENT (BEAKER) (test 11 % xnvb=124) EOSINOPHILS RELATIVE PERCENT (BEAKER) (test 0 % crgt=680) BASOPHILS RELATIVE PERCENT (BEAKER) (test 0 % kxxq=438) NEUTROPHILS ABSOLUTE COUNT (BEAKER) (test 7.28 K/ L 1.78-5.38 kqwl=971) LYMPHOCYTES ABSOLUTE COUNT (BEAKER) (test 0.94 K/ L 1.32-3.57 vvts=583) MONOCYTES ABSOLUTE COUNT (BEAKER) (test 1.04 K/ L 0.30-0.82 mlkb=339) EOSINOPHILS ABSOLUTE COUNT (BEAKER) (test 0.02 K/ L 0.04-0.54 hbsf=752) BASOPHILS ABSOLUTE COUNT (BEAKER) (test 0.01 K/ L 0.01-0.08 utzj=550) IMMATURE GRANULOCYTES-RELATIVE PERCENT (BEAKER) 1 % 0-1 (test kajt=9482) CT, CHEST, WITHOUT [id number] 03:17:00FINAL REPORT EXAM: CT of the chest, [...] left pleural effusion with associated compressive atelectasis. Gkgqb-do-abptuixs loculated right pleural effusion with pleural thickening [...] follow up is recommendedCardiomegaly. Signed: Raz Taylor [facility] Verified Date/Time: 12/06/2018 03:17:03 Reading Location: [facility] [address] Body Reading Room POCT-GLUCOSE [id number] 21:22:00 Test Item Value Reference Range Comments POC-GLUCOSE METER (BEAKER) 171 mg/dL 70-110 TESTED AT [facility] [address] (test nbpx=5496) [facility] [address] POCT-GLUCOSE [id number] 17:58:00 Test Item Value Reference Range Comments POC-GLUCOSE METER (BEAKER) 128 mg/dL 70-110 TESTED AT [address] (test xeld=5264) [place] [id number] POCT-GLUCOSE [id number] 13:24:00 Test Item Value Reference Range Comments POC-GLUCOSE METER (BEAKER) 129 mg/dL 70-110 TESTED AT [address] (test rabb=2746) [place] [id number] LACTATE DEHYDROGENASE (LDH)2018-12-05 13:14:00 Test Item Value Reference Range Comments LACTATE DEHYDROGENASE (BEAKER) (test hcvs=801) 291 U/L 125-220 [id number] 13:10:00 Test Item Value Reference Range Comments PARTIAL THROMBOPLASTIN TIME (BEAKER) (test 91.7 seconds 22.5-36.0 afdj=111) POCT-GLUCOSE [id number] 08:19:00 Test Item Value Reference Range Comments POC-GLUCOSE METER (BEAKER) 106 mg/dL 70-110 TESTED AT [address] (test zfin=9968) [facility] [address] BASIC METABOLIC [id number] 07:05:00 Test Item Value Reference Range Comments SODIUM (BEAKER) (test 137 meq/L 136-145 gfgw=415) POTASSIUM (BEAKER) (test 3.7 meq/L 3.5-5.1 njzq=375) CHLORIDE (BEAKER) (test 100 meq/L 98-107 bblp=389) CO2 (BEAKER) (test 24 meq/L 22-29 rytf=875) BLOOD UREA NITROGEN 60 mg/dL 7-21 (BEAKER) (test ogya=706) CREATININE (BEAKER) (test 5.57 mg/dL 0.57-1.25 gjcx=911) GLUCOSE RANDOM (BEAKER) 113 mg/dL 70-105 (test werr=526) CALCIUM (BEAKER) (test 9.2 mg/dL 8.4-10.2 mnzm=563) EGFR (BEAKER) (test 13 mL/min/1.73 sq m ESTIMATED GFR IS NOT agaq=4771) ACCURATE CREATININE CLEARANCE IN PREDICTING GLOMERULAR FILTRATION RATE. ESTIMATED GFR IS NOT APPLICABLE FOR DIALYSIS PATIENTS. PT/[id number] 06:32:00 Test Item Value Reference Range Comments PROTIME (BEAKER) (test ftfl=207) 19.8 seconds 11.7-14.7 INR (BEAKER) (test dvbp=700) 1.6 <=5.9 PARTIAL THROMBOPLASTIN TIME (BEAKER) (test 76.5 seconds 22.5-36.0 wznl=433) RECOMMENDED COUMADIN/WARFARIN INR THERAPY RANGESSTANDARD DOSE: 2.0 - 3.0 Includes: PROPHYLAXIS forvenous thrombosis, systemic embolization; TREATMENT for venous thrombosis and/or pulmonary embolus.HIGH RISK: Target INR is 2.5-3.5 for patients with mechanical heart valves.PROTHROMBIN TIME/[id number] 06:30: 00 Test Item Value Reference Range Comments PROTIME (BEAKER) (test znlv=032) 19.8 seconds 11.7-14.7 INR (BEAKER) (test ecvy=141) 1.6 <=5.9 RECOMMENDED COUMADIN/WARFARIN INR THERAPY RANGESSTANDARD DOSE: 2.0 - 3.0 Includes: PROPHYLAXIS forvenous thrombosis, systemic embolization; TREATMENT for venous thrombosis and/or pulmonary embolus.HIGH RISK: Target INR is 2.5-3.5 for patients with mechanical heart valves.CBC W/PLT COUNT & AUTO [id number] 06:15:00 Test Item Value Reference Range Comments WHITE BLOOD CELL COUNT (BEAKER) (test dgum=616) 7.5 K/ L 3.5-10.5 RED BLOOD CELL COUNT (BEAKER) (test piif=538) 3.27 M/ L 4.63-6.08 HEMOGLOBIN (BEAKER) (test famh=068) 10.7 GM/DL 13.7-17.5 HEMATOCRIT (BEAKER) (test esgu=472) 33.1 % 40.1-51.0 MEAN CORPUSCULAR VOLUME (BEAKER) (test luqk=141) 101.2 fL 79.0-92.2 MEAN CORPUSCULAR HEMOGLOBIN (BEAKER) (test 32.7 pg 25.7-32.2 avhk=651) MEAN CORPUSCULAR HEMOGLOBIN CONC (BEAKER) (test 32.3 GM/DL 32.3-36.5 vjnl=980) RED CELL DISTRIBUTION WIDTH (BEAKER) (test 15.3 % 11.6-14.4 hibg=241) PLATELET COUNT (BEAKER) (test xvkj=386) 145 K/CU MM 150-450 MEAN PLATELET VOLUME (BEAKER) (test jyre=351) 9.1 fL 9.4-12.4 NUCLEATED RED BLOOD CELLS (BEAKER) (test 0 /100 WBC 0-0 qcfk=593) NEUTROPHILS RELATIVE PERCENT (BEAKER) (test 74 % edsf=517) LYMPHOCYTES RELATIVE PERCENT (BEAKER) (test 13 % danx=827) MONOCYTES RELATIVE PERCENT (BEAKER) (test 12 % hygp=204) EOSINOPHILS RELATIVE PERCENT (BEAKER) (test 0 % rjjl=002) BASOPHILS RELATIVE PERCENT (BEAKER) (test 0 % kogh=481) NEUTROPHILS ABSOLUTE COUNT (BEAKER) (test 5.57 K/ L 1.78-5.38 eklt=190) LYMPHOCYTES ABSOLUTE COUNT (BEAKER) (test 0.94 K/ L 1.32-3.57 zyqu=922) MONOCYTES ABSOLUTE COUNT (BEAKER) (test 0.91 K/ L 0.30-0.82 zbxk=684) EOSINOPHILS ABSOLUTE COUNT (BEAKER) (test 0.02 K/ L 0.04-0.54 gtko=777) BASOPHILS ABSOLUTE COUNT (BEAKER) (test 0.01 K/ L 0.01-0.08 vnud=172) IMMATURE GRANULOCYTES-RELATIVE PERCENT (BEAKER) 1 % 0-1 (test uyin=9209) [id number] 00:40:00 Test Item Value Reference Range Comments PARTIAL THROMBOPLASTIN TIME (BEAKER) (test 63.1 seconds 22.5-36.0 xtel=308) POCT-GLUCOSE [id number] 00:12:00 Test Item Value Reference Range Comments POC-GLUCOSE METER (BEAKER) 124 mg/dL 70-110 TESTED AT [address] (test pdxi=8669) [facility] [address] HEPATITIS B SURFACE [id number] 22:54:00 Test Item Value Reference Range Comments HEPATITIS B SURFACE ANTIGEN (2) (BEAKER) (test Nonreactive Nonreactive nkoo=2997) For chronic HD patients, draw HBsAg with each admission then every 30 days.BODY FLUID CELL COUNT WITH [id number] 20:34:00 Test Item Value Reference Range Comments APPEARANCE FLUID (BEAKER) (test azwq=022) Cloudy Clear COLOR FLUID (BEAKER) (test atqm=381) Brown Colorless, Straw RBC FLUID (BEAKER) (test jfrm=125) [address] /cu mm <=1 ADJUSTED WBC FLUID (BEAKER) (test edwc=6286) 330 /cu mm <=5 LINING CELLS (BEAKER) (test gbtl=6025) 0 /cu mm <=1 NEUTROPHILS FLUID (BEAKER) (test yidc=7301) 4 % LYMPHS FLUID (BEAKER) (test cnxu=859) 92 % MONO/MACROPHAGE FLUID (BEAKER) (test azch=413) 4 % EOSINOPHILS FLUID (BEAKER) (test srec=490) 0 % BASO FLUID (BEAKER) (test wmzf=660) 0 % CONTAINER BODY FLUID (BEAKER) (test vemq=6231) EDTA Tube LACTATE DEHYDROGENASE (LDH), BODY [id number] 19:43:00 Test Item Value Reference Range Comments LACTATE DEHYDROGENASE FLUID (BEAKER) 288 U/L Light's criteria identifies (test ijoj=891) effusions if one or more are pre Absence of reference range indicates that normals have not been defined.Assay performance has not been validated for this type of specimen.U/S, [id number] 18:00:00Laterality?->RightReason for exam:-> SHORTNESS OF BREATHFINAL REPORT PROCEDURE: Ultrasound- guided thoracentesis INDICATION: 63-year-old man with shortness of breath and right pleural effusion. DESCRIPTION: After obtaining informed written consent, ultrasound scan showed a septated pleural effusion on the right. The overlying skin wasprepped and draped in the usual, sterile fashion and local 1% lidocaine anesthesia was administered.A 4 Argentine catheter was advanced into the largest pocket of the septated pleural effusion and 300 ccof bloody fluid was removed. The catheter was removed without immediate complication. Samples were sent for analysis. IMPRESSION:Uncomplicated ultrasound-guided right thoracentesis with 300 cc fluid removed. Signed: Raimundo Kim MDReport Verified Date/Time: 12/2018 18:00:50 Reading Location: [facility] [id number] Ultrasound Reading Room RAD, CHEST, 1 VIEW, NON [id number] 17:23:00Reason for exam:->s/p right thoracentesisShould this be [...] Walter MDReport Verified Date/Time: 17:23:06 Reading Location: [facility] Reading Room C. DIFFICILE GDH [id number] 10:01:00 Test Item Value Reference Range Comments CDT TOXIN (test Negative Negative kgls=[id number]) CDT GDH ANTIGEN (test Positive Negative C. difficile present but toxin zxfj=[id number]) not detected. Indicates colonization with non-toxigenic strain or level of toxin below detectable levels. No need for enteric isolation. Treatment is rarely needed (only when strong clinical suspicion for Clostridium difficile infection) Testing performed by [employer] Rapid Cassette Assay. For GDH, published sensitivity of the assay is 98.7% compared to cytotoxicity testing. For Toxin AB, published sensitivity is 87.8% and specificity 99.4% compared to cytotoxicity testing.Verification of kit performance was done by the [facility] Microbiology Lab prior to clinical use.[id number] 09:39:00 Test Item Value Reference Range Comments PARTIAL THROMBOPLASTIN TIME (BEAKER) (test 79.4 seconds 22.5-36.0 sljf=587) OCCULT BLOOD, [id number] 05:59:00 Test Item Value Reference Range Comments FECAL OCCULT BLOOD (BEAKER) (test kwtf=406) Negative Negative BASIC METABOLIC [id number] 02:50:00 Test Item Value Reference Range Comments SODIUM (BEAKER) (test 138 meq/L 136-145 knya=071) POTASSIUM (BEAKER) (test 3.4 meq/L 3.5-5.1 cjzi=507) CHLORIDE (BEAKER) (test 98 meq/L 98-107 hkte=732) CO2 (BEAKER) (test 25 meq/L 22-29 oxmf=959) BLOOD UREA NITROGEN 96 mg/dL 7-21 (BEAKER) (test aqsl=115) CREATININE (BEAKER) (test 7.48 mg/dL 0.57-1.25 lbif=982) GLUCOSE RANDOM (BEAKER) 169 mg/dL 70-105 (test kdii=030) CALCIUM (BEAKER) (test 9.4 mg/dL 8.4-10.2 kkig=258) EGFR (BEAKER) (test 9 mL/min/1.73 sq m ESTIMATED GFR IS NOT hury=8922) ACCURATE CREATININE CLEARANCE IN PREDICTING GLOMERULAR FILTRATION RATE. ESTIMATED GFR IS NOT APPLICABLE FOR DIALYSIS PATIENTS. [id number] 02:50:00 Test Item Value Reference Range Comments PARTIAL THROMBOPLASTIN TIME (BEAKER) (test 35.3 seconds 22.5-36.0 vufe=459) Prior to initiating heparinPROTHROMBIN TIME/[id number] 02:49:00 Test Item Value Reference Range Comments PROTIME (BEAKER) (test bwxj=805) 25.1 seconds 11.7-14.7 INR (BEAKER) (test igaz=579) 2.3 <=5.9 RECOMMENDED COUMADIN/WARFARIN INR THERAPY RANGESSTANDARD DOSE: 2.0 - 3.0 Includes: PROPHYLAXIS forvenous thrombosis, systemic embolization; TREATMENT for venous thrombosis and/or pulmonary embolus.HIGH RISK: Target INR is 2.5-3.5 for patients with mechanical heart valves.Prior to initiating heparinTROPONIN [id number] 02:49:00 Test Item Value Reference Range Comments TROPONIN I (BEAKER) (test cysa=765) 0.08 ng/mL 0.00-0.03 Troponin I (TnI) levels [...] acute neurological disease, and persistent tachyarrhythmia.HEPATIC FUNCTION [id number] 02:43: 00 Test Item Value Reference Range Comments TOTAL PROTEIN (BEAKER) (test yzwz=045) 7.3 gm/dL 6.0-8.3 ALBUMIN (BEAKER) (test unff=2230) 3.1 g/dL 3.5-5.0 BILIRUBIN TOTAL (BEAKER) (test dmrq=789) 0.8 mg/dL 0.2-1.2 BILIRUBIN DIRECT (BEAKER) (test cteb=746) 0.5 mg/dL 0.1-0.5 ALKALINE PHOSPHATASE (BEAKER) (test tfip=720) 98 U/L 40-150 AST (SGOT) (BEAKER) (test nkfw=889) 28 U/L 5-34 ALT (SGPT) (BEAKER) (test yoxa=671) 37 U/L 6-55 CBC W/PLT COUNT & AUTO [id number] 02:21:00 Test Item Value Reference Range Comments WHITE BLOOD CELL COUNT (BEAKER) (test qjmr=928) 8.5 K/ L 3.5-10.5 RED BLOOD CELL COUNT (BEAKER) (test azbr=856) 3.15 M/ L 4.63-6.08 HEMOGLOBIN (BEAKER) (test tvgx=625) 10.4 GM/DL 13.7-17.5 HEMATOCRIT (BEAKER) (test cnpl=217) 31.8 % 40.1-51.0 MEAN CORPUSCULAR VOLUME (BEAKER) (test jlow=551) 101.0 fL 79.0-92.2 MEAN CORPUSCULAR HEMOGLOBIN (BEAKER) (test 33.0 pg 25.7-32.2 rlhg=719) MEAN CORPUSCULAR HEMOGLOBIN CONC (BEAKER) (test 32.7 GM/DL 32.3-36.5 cnai=483) RED CELL DISTRIBUTION WIDTH (BEAKER) (test 15.5 % 11.6-14.4 npti=746) PLATELET COUNT (BEAKER) (test onml=832) 137 K/CU MM 150-450 MEAN PLATELET VOLUME (BEAKER) (test vqqa=836) 8.9 fL 9.4-12.4 NUCLEATED RED BLOOD CELLS (BEAKER) (test 0 /100 WBC 0-0 buuf=454) NEUTROPHILS RELATIVE PERCENT (BEAKER) (test 75 % tdob=309) LYMPHOCYTES RELATIVE PERCENT (BEAKER) (test 12 % ghzf=306) MONOCYTES RELATIVE PERCENT (BEAKER) (test 12 % efas=524) EOSINOPHILS RELATIVE PERCENT (BEAKER) (test 0 % wmmj=331) BASOPHILS RELATIVE PERCENT (BEAKER) (test 0 % mngd=650) NEUTROPHILS ABSOLUTE COUNT (BEAKER) (test 6.32 K/ L 1.78-5.38 vfll=009) LYMPHOCYTES ABSOLUTE COUNT (BEAKER) (test 1.00 K/ L 1.32-3.57 fybs=404) MONOCYTES ABSOLUTE COUNT (BEAKER) (test 1.01 K/ L 0.30-0.82 jzeb=617) EOSINOPHILS ABSOLUTE COUNT (BEAKER) (test 0.02 K/ L 0.04-0.54 cany=204) BASOPHILS ABSOLUTE COUNT (BEAKER) (test 0.01 K/ L 0.01-0.08 pjee=926) IMMATURE GRANULOCYTES-RELATIVE PERCENT (BEAKER) 2 % 0-1 (test yfiw=8643) POCT-GLUCOSE [id number] 21:22:00 Test Item Value Reference Range Comments POC-GLUCOSE METER (BEAKER) 192 mg/dL 70-110 TESTED AT [facility] [address] [facility] (test lhyc=8305) [facility] [address] TROPONIN [id number] 17:09:00 Test Item Value Reference Range Comments TROPONIN I (BEAKER) (test igvg=936) 0.10 ng/mL 0.00-0.03 Troponin I (TnI) levels [...] and persistent tachyarrhythmia.RAD, CHEST, 1 VIEW, NON [id number] 15:36:00Reason for exam:->SHORTNESS OF BREATHShould this be performed at the bedside?->YesFINAL REPORT AP chest HISTORY: Shortness of breath. COMPARISON: 11/03/2017. IMPRESSION: Cardiomegaly. Mild interstitial edema. Right effusion and adjacent atelectasis. No pneumothorax. Signed: Mandy Chairez MDReport Verified Date/Time: 12/03/2018 15:36:19 Reading Location: [address] Radiology Reading Room YNIN [id number] 14:48:00 Test Item Value Reference Range Comments TROPONIN I (BEAKER) (test lwjd=667) 0.10 ng/mL 0.00-0.03 Troponin I (TnI) levels [...] NATRIURETIC PEPTIDE (BEAKER) (test 2959 pg/mL 0-100 uagt=667) BASIC METABOLIC [id number] 14:40:00 Test Item Value Reference Range Comments SODIUM (BEAKER) (test 137 meq/L 136-145 ulis=678) POTASSIUM (BEAKER) (test 3.3 meq/L 3.5-5.1 jjxw=591) CHLORIDE (BEAKER) (test 99 meq/L 98-107 ffad=049) CO2 (BEAKER) (test 24 meq/L 22-29 lbgp=318) BLOOD UREA NITROGEN 85 mg/dL 7-21 (BEAKER) (test wyrl=885) CREATININE (BEAKER) (test 6.72 mg/dL 0.57-1.25 wjit=499) GLUCOSE RANDOM (BEAKER) 158 mg/dL 70-105 (test bqiq=000) CALCIUM (BEAKER) (test 9.7 mg/dL 8.4-10.2 xfnk=900) EGFR (BEAKER) (test 10 mL/min/1.73 sq m ESTIMATED GFR IS NOT hygy=6417) ACCURATE CREATININE CLEARANCE IN PREDICTING GLOMERULAR FILTRATION RATE. ESTIMATED GFR IS NOT APPLICABLE FOR DIALYSIS PATIENTS. PT/[id number] 14:34:00 Test Item Value Reference Range Comments PROTIME (BEAKER) (test ruwv=857) 25.4 seconds 11.7-14.7 INR (BEAKER) (test iemb=485) 2.3 <=5.9 PARTIAL THROMBOPLASTIN TIME (BEAKER) (test 34.3 seconds 22.5-36.0 qozl=006) RECOMMENDED COUMADIN/WARFARIN INR THERAPY RANGESSTANDARD DOSE: 2.0 - 3.0 Includes: PROPHYLAXIS forvenous thrombosis, systemic embolization; TREATMENT for venous thrombosis and/or pulmonary embolus.HIGH RISK: Target INR is 2.5-3.5 for patients with mechanical heart valves.CBC W/PLT COUNT & AUTO [id number] 14:25:00 Test Item Value Reference Range Comments WHITE BLOOD CELL COUNT (BEAKER) (test cirz=491) 8.5 K/ L 3.5-10.5 RED BLOOD CELL COUNT (BEAKER) (test dimp=560) 3.26 M/ L 4.63-6.08 HEMOGLOBIN (BEAKER) (test xsbq=315) 10.9 GM/DL 13.7-17.5 HEMATOCRIT (BEAKER) (test eotk=770) 33.3 % 40.1-51.0 MEAN CORPUSCULAR VOLUME (BEAKER) (test poxs=776) 102.1 fL 79.0-92.2 MEAN CORPUSCULAR HEMOGLOBIN (BEAKER) (test 33.4 pg 25.7-32.2 bdbo=012) MEAN CORPUSCULAR HEMOGLOBIN CONC (BEAKER) (test 32.7 GM/DL 32.3-36.5 hzlx=160) RED CELL DISTRIBUTION WIDTH (BEAKER) (test 15.3 % 11.6-14.4 mpax=806) PLATELET COUNT (BEAKER) (test qavw=649) 162 K/CU MM 150-450 MEAN PLATELET VOLUME (BEAKER) (test cqox=476) 9.2 fL 9.4-12.4 NUCLEATED RED BLOOD CELLS (BEAKER) (test 0 /100 WBC 0-0 nlvz=601) NEUTROPHILS RELATIVE PERCENT (BEAKER) (test 74 % drxp=746) LYMPHOCYTES RELATIVE PERCENT (BEAKER) (test 13 % gjwn=214) MONOCYTES RELATIVE PERCENT (BEAKER) (test 11 % wmhu=827) EOSINOPHILS RELATIVE PERCENT (BEAKER) (test 0 % xrnz=574) BASOPHILS RELATIVE PERCENT (BEAKER) (test 0 % vumc=193) NEUTROPHILS ABSOLUTE COUNT (BEAKER) (test 6.31 K/ L 1.78-5.38 orsy=848) LYMPHOCYTES ABSOLUTE COUNT (BEAKER) (test 1.07 K/ L 1.32-3.57 eodb=503) MONOCYTES ABSOLUTE COUNT (BEAKER) (test 0.96 K/ L 0.30-0.82 mafq=805) EOSINOPHILS ABSOLUTE COUNT (BEAKER) (test 0.01 K/ L 0.04-0.54 ogju=989) BASOPHILS ABSOLUTE COUNT (BEAKER) (test 0.01 K/ L 0.01-0.08 dufn=368) IMMATURE GRANULOCYTES-RELATIVE PERCENT (BEAKER) 2 % 0-1 (test qycm=1557) RAD, CHEST, 2 [id number] 15:24:00Reason for Exam:->chronic Diastolic heart FailureFINAL REPORT [...] Verified Date/ Time: 11/03/2018 15:24:42 Reading Location: [address] Radiology Reading Room MISCELLANEOUS LAB [id number] 08:22:00 Test Item Value Reference Range Comments SCAN RESULT (test dzxl=[id number]) PROTHROMBIN TIME/[id number] 08:37:00 Test Item Value Reference Range Comments PROTIME (BEAKER) (test sffg=402) 24.8 seconds 11.7-14.7 INR (BEAKER) (test kres=980) 2.2 <=5.9 RECOMMENDED COUMADIN/WARFARIN INR THERAPY RANGESSTANDARD DOSE: 2.0 - 3.0 Includes: PROPHYLAXIS forvenous thrombosis, systemic embolization; TREATMENT for venous thrombosis and/or pulmonary embolus.HIGH RISK: Target INR is 2.5-3.5 for patients with mechanical heart valves.POCT-GLUCOSE [id number] 08:10:00 Test Item Value Reference Range Comments POC-GLUCOSE METER (BEAKER) 89 mg/dL 70-110 TESTED AT [facility] [address] (test zgxz=6745) [facility] [address] BASIC METABOLIC [id number] 06:29:00 Test Item Value Reference Range Comments SODIUM (BEAKER) (test 134 meq/L 136-145 nztb=691) POTASSIUM (BEAKER) (test 4.2 meq/L 3.5-5.1 yoac=901) CHLORIDE (BEAKER) (test 97 meq/L 98-107 norg=183) CO2 (BEAKER) (test 29 meq/L 22-29 omtb=706) BLOOD UREA NITROGEN 22 mg/dL 7-21 (BEAKER) (test ddgv=835) CREATININE (BEAKER) (test 5.61 mg/dL 0.57-1.25 bipp=979) GLUCOSE RANDOM (BEAKER) 87 mg/dL 70-105 (test iwqb=576) CALCIUM (BEAKER) (test 9.0 mg/dL 8.4-10.2 fmat=932) EGFR (BEAKER) (test 13 mL/min/1.73 sq m ESTIMATED GFR IS NOT tngd=0276) ACCURATE CREATININE CLEARANCE IN PREDICTING GLOMERULAR FILTRATION RATE. ESTIMATED GFR IS NOT APPLICABLE FOR DIALYSIS PATIENTS. [id number] 06:28:00 Test Item Value Reference Range Comments MAGNESIUM (BEAKER) (test iwbs=913) 1.8 mg/dL 1.6-2.6 [id number] 06:14:00 Test Item Value Reference Range Comments PARTIAL THROMBOPLASTIN TIME (BEAKER) (test 64.7 seconds 22.5-36.0 wfbe=656) CBC W/PLT COUNT & AUTO [id number] 05:58:00 Test Item Value Reference Range Comments WHITE BLOOD CELL COUNT (BEAKER) (test vjty=430) 5.4 K/ L 3.5-10.5 RED BLOOD CELL COUNT (BEAKER) (test nzfu=609) 3.28 M/ L 4.63-6.08 HEMOGLOBIN (BEAKER) (test nehi=172) 10.7 GM/DL 13.7-17.5 HEMATOCRIT (BEAKER) (test qgxb=794) 32.8 % 40.1-51.0 MEAN CORPUSCULAR VOLUME (BEAKER) (test wjoc=926) 100.0 fL 79.0-92.2 MEAN CORPUSCULAR HEMOGLOBIN (BEAKER) (test 32.6 pg 25.7-32.2 pkov=718) MEAN CORPUSCULAR HEMOGLOBIN CONC (BEAKER) (test 32.6 GM/DL 32.3-36.5 bvfw=402) RED CELL DISTRIBUTION WIDTH (BEAKER) (test 14.3 % 11.6-14.4 ripc=111) PLATELET COUNT (BEAKER) (test lhxi=902) 121 K/CU MM 150-450 MEAN PLATELET VOLUME (BEAKER) (test ygao=866) 9.0 fL 9.4-12.4 NUCLEATED RED BLOOD CELLS (BEAKER) (test 0 /100 WBC 0-0 ejiu=666) NEUTROPHILS RELATIVE PERCENT (BEAKER) (test 64 % bgci=133) LYMPHOCYTES RELATIVE PERCENT (BEAKER) (test 18 % rbhd=770) MONOCYTES RELATIVE PERCENT (BEAKER) (test 15 % vhbg=202) EOSINOPHILS RELATIVE PERCENT (BEAKER) (test 2 % icnl=791) BASOPHILS RELATIVE PERCENT (BEAKER) (test 1 % pdni=039) NEUTROPHILS ABSOLUTE COUNT (BEAKER) (test 3.45 K/ L 1.78-5.38 dgqt=726) LYMPHOCYTES ABSOLUTE COUNT (BEAKER) (test 0.96 K/ L 1.32-3.57 thcr=973) MONOCYTES ABSOLUTE COUNT (BEAKER) (test 0.78 K/ L 0.30-0.82 suqr=559) EOSINOPHILS ABSOLUTE COUNT (BEAKER) (test 0.11 K/ L 0.04-0.54 jcmv=227) BASOPHILS ABSOLUTE COUNT (BEAKER) (test 0.03 K/ L 0.01-0.08 qhot=311) IMMATURE GRANULOCYTES-RELATIVE PERCENT (BEAKER) 1 % 0-1 (test oxrq=9260) POCT-GLUCOSE [id number] 21:14:00 Test Item Value Reference Range Comments POC-GLUCOSE METER (BEAKER) 135 mg/dL 70-110 TESTED AT [facility] [address] [facility] (test osyu=3035) [facility] [address] [id number] 19:36:00 Test Item Value Reference Range Comments PARTIAL THROMBOPLASTIN TIME (BEAKER) (test 88.6 seconds 22.5-36.0 smjr=594) POCT-GLUCOSE [id number] 18:27:00 Test Item Value Reference Range Comments POC-GLUCOSE METER (BEAKER) 88 mg/dL 70-110 TESTED AT [address] (test njsu=0336) [facility] [address] POCT-GLUCOSE [id number] 12:05:00 Test Item Value Reference Range Comments POC-GLUCOSE METER (BEAKER) 92 mg/dL 70-110 TESTED AT [address] (test ppih=1641) [place] [id number] 11:46:00 Test Item Value Reference Range Comments PARTIAL THROMBOPLASTIN TIME (BEAKER) (test 74.3 seconds 22.5-36.0 whhc=466) POCT-GLUCOSE [id number] 10:36:00 Test Item Value Reference Range Comments POC-GLUCOSE METER (BEAKER) 101 mg/dL 70-110 TESTED AT [address] (test frbk=7154) [facility] [address] POCT-GLUCOSE [id number] 07:10:00 Test Item Value Reference Range Comments POC-GLUCOSE METER (BEAKER) 92 mg/dL 70-110 TESTED AT [address] (test lfpb=3522) [facility] [address] PROTHROMBIN [id number] 01:41:00 Test Item Value Reference Range Comments PROTIME (BEAKER) (test rzrv=955) 22.8 seconds 11.7-14.7 INR (BEAKER) (test xeld=324) 2.0 <=5.9 RECOMMENDED COUMADIN/WARFARIN INR THERAPY RANGESSTANDARD DOSE: 2.0 - 3.0 Includes: PROPHYLAXIS forvenous thrombosis, systemic embolization; TREATMENT for venous thrombosis and/or pulmonary embolus.HIGH RISK: Target INR is 2.5-3.5 for patients with mechanical heart valves.While on warfarin.[id number] 01:41 :00 Test Item Value Reference Range Comments PARTIAL THROMBOPLASTIN TIME (BEAKER) (test 52.3 seconds 22.5-36.0 hrhy=200) While on warfarin.BASIC METABOLIC [id number] 01:37:00 Test Item Value Reference Range Comments SODIUM (BEAKER) (test 134 meq/L 136-145 uddc=481) POTASSIUM (BEAKER) (test 4.6 meq/L 3.5-5.1 scuv=170) CHLORIDE (BEAKER) (test 99 meq/L 98-107 dpqc=104) CO2 (BEAKER) (test 24 meq/L 22-29 jayh=072) BLOOD UREA NITROGEN 35 mg/dL 7-21 (BEAKER) (test bjwm=899) CREATININE (BEAKER) (test 7.31 mg/dL 0.57-1.25 sqlb=731) GLUCOSE RANDOM (BEAKER) 87 mg/dL 70-105 (test jnpj=890) CALCIUM (BEAKER) (test 9.2 mg/dL 8.4-10.2 dphp=385) EGFR (BEAKER) (test 9 mL/min/1.73 sq m ESTIMATED GFR IS NOT wkkl=2810) ACCURATE CREATININE CLEARANCE IN PREDICTING GLOMERULAR FILTRATION RATE. ESTIMATED GFR IS NOT APPLICABLE FOR DIALYSIS PATIENTS. [id number] 01:32:00 Test Item Value Reference Range Comments MAGNESIUM (BEAKER) (test fxpz=681) 1.8 mg/dL 1.6-2.6 CBC W/PLT COUNT & AUTO [id number] 01:18:00 Test Item Value Reference Range Comments WHITE BLOOD CELL COUNT (BEAKER) (test cjeb=303) 6.7 K/ L 3.5-10.5 RED BLOOD CELL COUNT (BEAKER) (test eifw=824) 3.38 M/ L 4.63-6.08 HEMOGLOBIN (BEAKER) (test ahvl=626) 10.9 GM/DL 13.7-17.5 HEMATOCRIT (BEAKER) (test esdt=907) 33.6 % 40.1-51.0 MEAN CORPUSCULAR VOLUME (BEAKER) (test iebb=268) 99.4 fL 79.0-92.2 MEAN CORPUSCULAR HEMOGLOBIN (BEAKER) (test 32.2 pg 25.7-32.2 lxcp=087) MEAN CORPUSCULAR HEMOGLOBIN CONC (BEAKER) (test 32.4 GM/DL 32.3-36.5 fttd=324) RED CELL DISTRIBUTION WIDTH (BEAKER) (test 14.1 % 11.6-14.4 ncld=425) PLATELET COUNT (BEAKER) (test fdsz=509) 160 K/CU MM 150-450 MEAN PLATELET VOLUME (BEAKER) (test gdqr=498) 9.0 fL 9.4-12.4 NUCLEATED RED BLOOD CELLS (BEAKER) (test 0 /100 WBC 0-0 jtqb=172) NEUTROPHILS RELATIVE PERCENT (BEAKER) (test 70 % ghxm=361) LYMPHOCYTES RELATIVE PERCENT (BEAKER) (test 15 % rxlu=734) MONOCYTES RELATIVE PERCENT (BEAKER) (test 12 % gaec=491) EOSINOPHILS RELATIVE PERCENT (BEAKER) (test 2 % syso=752) BASOPHILS RELATIVE PERCENT (BEAKER) (test 1 % drxz=063) NEUTROPHILS ABSOLUTE COUNT (BEAKER) (test 4.66 K/ L 1.78-5.38 btzj=925) LYMPHOCYTES ABSOLUTE COUNT (BEAKER) (test 0.97 K/ L 1.32-3.57 ovsg=523) MONOCYTES ABSOLUTE COUNT (BEAKER) (test 0.82 K/ L 0.30-0.82 cawm=655) EOSINOPHILS ABSOLUTE COUNT (BEAKER) (test 0.16 K/ L 0.04-0.54 mjuy=395) BASOPHILS ABSOLUTE COUNT (BEAKER) (test 0.05 K/ L 0.01-0.08 wfoy=649) IMMATURE GRANULOCYTES-RELATIVE PERCENT (BEAKER) 1 % 0-1 (test vadj=8087) [id number] 23:23:00 Test Item Value Reference Range Comments PARTIAL THROMBOPLASTIN TIME (BEAKER) (test 125.2 seconds 22.5-36.0 eqxn=648) POCT-GLUCOSE [id number] 21:19:00 Test Item Value Reference Range Comments POC-GLUCOSE METER (BEAKER) 165 mg/dL 70-110 TESTED AT [address] (test yoiq=5716) [place] [id number] POCT-GLUCOSE [id number] 18:34:00 Test Item Value Reference Range Comments POC-GLUCOSE METER (BEAKER) 92 mg/dL 70-110 TESTED AT [address] (test qqnq=8776) [facility] [address] [id number] 17:17:00 Test Item Value Reference Range Comments PARTIAL THROMBOPLASTIN TIME (BEAKER) (test 75.2 seconds 22.5-36.0 oxcc=174) POCT-GLUCOSE [id number] 12:48:00 Test Item Value Reference Range Comments POC-GLUCOSE METER (BEAKER) 105 mg/dL 70-110 TESTED AT [address] (test atcv=9058) [place] [id number] RAD, CHEST, 1 VIEW, NON [id number] 11:00:00Reason for exam:->eval right effusionShould this be performed at the bedside?->YesFINAL REPORT Comparison: 08/15/2018 TECHNIQUE: Single view of the chest FINDINGS : Small to moderate right pleural effusion is stable. Small left pleural effusion may be slightly increased. Vascular congestion seen. No other significant change. Signed: Kyle Rome Verified Date/Time: 2017 11:00:36 Reading Location: [facility] Radiology Reading Room Electronicallysigned by: KYLE ROME M.D. on 08/18/2018 11:00 [id number] 09:48:00 Test Item Value Reference Range Comments PARTIAL THROMBOPLASTIN TIME (BEAKER) (test 48.8 seconds 22.5-36.0 dgbu=520) POCT-GLUCOSE [id number] 07:37:00 Test Item Value Reference Range Comments POC-GLUCOSE METER (BEAKER) 96 mg/dL 70-110 TESTED AT [address] (test ubxr=3159) [place] [id number] BASIC METABOLIC [id number] 02:24:00 Test Item Value Reference Range Comments SODIUM (BEAKER) (test 136 meq/L 136-145 olbp=103) POTASSIUM (BEAKER) (test 4.4 meq/L 3.5-5.1 yioa=756) CHLORIDE (BEAKER) (test 99 meq/L 98-107 soep=249) CO2 (BEAKER) (test 26 meq/L 22-29 lhld=301) BLOOD UREA NITROGEN 29 mg/dL 7-21 (BEAKER) (test boog=274) CREATININE (BEAKER) (test 5.95 mg/dL 0.57-1.25 tres=347) GLUCOSE RANDOM (BEAKER) 96 mg/dL 70-105 (test thdp=625) CALCIUM (BEAKER) (test 9.1 mg/dL 8.4-10.2 qeoe=761) EGFR (BEAKER) (test 12 mL/min/1.73 sq m ESTIMATED GFR IS NOT nlzk=5782) ACCURATE CREATININE CLEARANCE IN PREDICTING GLOMERULAR FILTRATION RATE. ESTIMATED GFR IS NOT APPLICABLE FOR DIALYSIS PATIENTS. [id number] 02:22:00 Test Item Value Reference Range Comments MAGNESIUM (BEAKER) (test ssmc=679) 1.7 mg/dL 1.6-2.6 [id number] 02:15:00 Test Item Value Reference Range Comments PARTIAL THROMBOPLASTIN TIME (BEAKER) (test 98.9 seconds 22.5-36.0 hobf=283) PROTHROMBIN [id number] 02:13:00 Test Item Value Reference Range Comments PROTIME (BEAKER) (test bjpo=500) 21.6 seconds 11.7-14.7 INR (BEAKER) (test qtpz=855) 1.9 <=5.9 RECOMMENDED COUMADIN/WARFARIN INR THERAPY RANGESSTANDARD DOSE: 2.0 - 3.0 Includes: PROPHYLAXIS forvenous thrombosis, systemic embolization; TREATMENT for venous thrombosis and/or pulmonary embolus.HIGH RISK: Target INR is 2.5-3.5 for patients with mechanical heart valves.CBC W/PLT COUNT & AUTO [id number] 02:09:00 Test Item Value Reference Range Comments WHITE BLOOD CELL COUNT (BEAKER) (test luus=975) 6.8 K/ L 3.5-10.5 RED BLOOD CELL COUNT (BEAKER) (test rswg=713) 3.29 M/ L 4.63-6.08 HEMOGLOBIN (BEAKER) (test rmdd=218) 10.7 GM/DL 13.7-17.5 HEMATOCRIT (BEAKER) (test dpld=015) 33.2 % 40.1-51.0 MEAN CORPUSCULAR VOLUME (BEAKER) (test dqmr=802) 100.9 fL 79.0-92.2 MEAN CORPUSCULAR HEMOGLOBIN (BEAKER) (test 32.5 pg 25.7-32.2 olgx=172) MEAN CORPUSCULAR HEMOGLOBIN CONC (BEAKER) (test 32.2 GM/DL 32.3-36.5 gmze=470) RED CELL DISTRIBUTION WIDTH (BEAKER) (test 14.2 % 11.6-14.4 jrgd=956) PLATELET COUNT (BEAKER) (test pdse=922) 157 K/CU MM 150-450 MEAN PLATELET VOLUME (BEAKER) (test iqgd=760) 9.1 fL 9.4-12.4 NUCLEATED RED BLOOD CELLS (BEAKER) (test 0 /100 WBC 0-0 saci=220) NEUTROPHILS RELATIVE PERCENT (BEAKER) (test 66 % dmlt=194) LYMPHOCYTES RELATIVE PERCENT (BEAKER) (test 16 % isyu=104) MONOCYTES RELATIVE PERCENT (BEAKER) (test 15 % abpr=738) EOSINOPHILS RELATIVE PERCENT (BEAKER) (test 3 % wktl=497) BASOPHILS RELATIVE PERCENT (BEAKER) (test 1 % satq=929) NEUTROPHILS ABSOLUTE COUNT (BEAKER) (test 4.48 K/ L 1.78-5.38 xkgf=862) LYMPHOCYTES ABSOLUTE COUNT (BEAKER) (test 1.06 K/ L 1.32-3.57 bccx=046) MONOCYTES ABSOLUTE COUNT (BEAKER) (test 0.99 K/ L 0.30-0.82 tidg=698) EOSINOPHILS ABSOLUTE COUNT (BEAKER) (test 0.17 K/ L 0.04-0.54 bylr=942) BASOPHILS ABSOLUTE COUNT (BEAKER) (test 0.05 K/ L 0.01-0.08 eugh=046) IMMATURE GRANULOCYTES-RELATIVE PERCENT (BEAKER) 1 % 0-1 (test zlzy=7208) POCT-GLUCOSE [id number] 21:51:00 Test Item Value Reference Range Comments POC-GLUCOSE METER (BEAKER) 98 mg/dL 70-110 TESTED AT [address] (test czmn=8084) [facility] [address] [id number] 18:51:00 Test Item Value Reference Range Comments PARTIAL THROMBOPLASTIN TIME (BEAKER) (test 56.1 seconds 22.5-36.0 wclh=580) [id number] 17:06:00 Test Item Value Reference Range Comments PARTIAL THROMBOPLASTIN TIME (BEAKER) (test 121.9 seconds 22.5-36.0 vhhv=807) POCT-GLUCOSE [id number] 16:46:00 Test Item Value Reference Range Comments POC-GLUCOSE METER (BEAKER) 135 mg/dL 70-110 TESTED AT [address] (test wkck=0866) [facility] [address] POCT-GLUCOSE [id number] 13:28:00 Test Item Value Reference Range Comments POC-GLUCOSE METER (BEAKER) 96 mg/dL 70-110 TESTED AT [facility] [address] [facility] (test psdm=0156) [facility] [address] [id number] 09:15:00 Test Item Value Reference Range Comments PARTIAL THROMBOPLASTIN TIME (BEAKER) (test 58.1 seconds 22.5-36.0 mror=843) BASIC METABOLIC [id number] 07:31:00 Test Item Value Reference Range Comments SODIUM (BEAKER) (test 136 meq/L 136-145 phym=094) POTASSIUM (BEAKER) (test 4.0 meq/L 3.5-5.1 ncsk=837) CHLORIDE (BEAKER) (test 101 meq/L 98-107 xjke=229) CO2 (BEAKER) (test 25 meq/L 22-29 ttbv=668) BLOOD UREA NITROGEN 21 mg/dL 7-21 (BEAKER) (test nljm=726) CREATININE (BEAKER) (test 4.75 mg/dL 0.57-1.25 hpxq=798) GLUCOSE RANDOM (BEAKER) 93 mg/dL 70-105 (test bpoc=968) CALCIUM (BEAKER) (test 8.9 mg/dL 8.4-10.2 pgzb=149) EGFR (BEAKER) (test 15 mL/min/1.73 sq m ESTIMATED GFR IS NOT kfnt=6517) ACCURATE CREATININE CLEARANCE IN PREDICTING GLOMERULAR FILTRATION RATE. ESTIMATED GFR IS NOT APPLICABLE FOR DIALYSIS PATIENTS. [id number] 07:19:00 Test Item Value Reference Range Comments PHOSPHORUS (BEAKER) (test yhxu=728) 3.7 mg/dL 2.3-4.7 [id number] 07:19:00 Test Item Value Reference Range Comments MAGNESIUM (BEAKER) (test exwq=797) 1.7 mg/dL 1.6-2.6 [id number] 07:07:00 Test Item Value Reference Range Comments PARTIAL THROMBOPLASTIN TIME (BEAKER) (test 124.4 seconds 22.5-36.0 cvfs=201) PROTHROMBIN [id number] 07:02:00 Test Item Value Reference Range Comments PROTIME (BEAKER) (test xzag=010) 19.8 seconds 11.7-14.7 INR (BEAKER) (test ddje=199) 1.7 <=5.9 RECOMMENDED COUMADIN/WARFARIN INR THERAPY RANGESSTANDARD DOSE: 2.0 - 3.0 Includes: PROPHYLAXIS forvenous thrombosis, systemic embolization; TREATMENT for venous thrombosis and/or pulmonary embolus.HIGH RISK: Target INR is 2.5-3.5 for patients with mechanical heart valves.While on warfarin.PROTHROMBIN TIME/ [id number] 07:02:00 Test Item Value Reference Range Comments PROTIME (BEAKER) (test gngz=758) 19.8 seconds 11.7-14.7 INR (BEAKER) (test stig=055) 1.7 <=5.9 RECOMMENDED COUMADIN/WARFARIN INR THERAPY RANGESSTANDARD DOSE: 2.0 - 3.0 Includes: PROPHYLAXIS forvenous thrombosis, systemic embolization; TREATMENT for venous thrombosis and/or pulmonary embolus.HIGH RISK: Target INR is 2.5-3.5 for patients with mechanical heart valves.CBC W/PLT COUNT & AUTO [id number] 06:53:00 Test Item Value Reference Range Comments WHITE BLOOD CELL COUNT (BEAKER) (test qyaz=575) 6.3 K/ L 3.5-10.5 RED BLOOD CELL COUNT (BEAKER) (test rged=769) 3.34 M/ L 4.63-6.08 HEMOGLOBIN (BEAKER) (test mojq=432) 10.7 GM/DL 13.7-17.5 HEMATOCRIT (BEAKER) (test akos=015) 33.6 % 40.1-51.0 MEAN CORPUSCULAR VOLUME (BEAKER) (test qyjh=940) 100.6 fL 79.0-92.2 MEAN CORPUSCULAR HEMOGLOBIN (BEAKER) (test 32.0 pg 25.7-32.2 sceb=595) MEAN CORPUSCULAR HEMOGLOBIN CONC (BEAKER) (test 31.8 GM/DL 32.3-36.5 abzf=339) RED CELL DISTRIBUTION WIDTH (BEAKER) (test 14.2 % 11.6-14.4 bace=740) PLATELET COUNT (BEAKER) (test stbv=178) 159 K/CU MM 150-450 MEAN PLATELET VOLUME (BEAKER) (test hsat=400) 9.0 fL 9.4-12.4 NUCLEATED RED BLOOD CELLS (BEAKER) (test 0 /100 WBC 0-0 tmhp=879) NEUTROPHILS RELATIVE PERCENT (BEAKER) (test 67 % sjob=512) LYMPHOCYTES RELATIVE PERCENT (BEAKER) (test 15 % kycj=171) MONOCYTES RELATIVE PERCENT (BEAKER) (test 14 % ynvk=376) EOSINOPHILS RELATIVE PERCENT (BEAKER) (test 2 % qjfx=051) BASOPHILS RELATIVE PERCENT (BEAKER) (test 1 % tlfx=863) NEUTROPHILS ABSOLUTE COUNT (BEAKER) (test 4.25 K/ L 1.78-5.38 aefd=652) LYMPHOCYTES ABSOLUTE COUNT (BEAKER) (test 0.96 K/ L 1.32-3.57 afzs=802) MONOCYTES ABSOLUTE COUNT (BEAKER) (test 0.88 K/ L 0.30-0.82 rtoj=442) EOSINOPHILS ABSOLUTE COUNT (BEAKER) (test 0.13 K/ L 0.04-0.54 wkdk=036) BASOPHILS ABSOLUTE COUNT (BEAKER) (test 0.04 K/ L 0.01-0.08 toqi=401) IMMATURE GRANULOCYTES-RELATIVE PERCENT (BEAKER) 1 % 0-1 (test hxqd=5398) [id number] 23:01:00 Test Item Value Reference Range Comments PARTIAL THROMBOPLASTIN TIME (BEAKER) (test 46.5 seconds 22.5-36.0 smgk=632) POCT-GLUCOSE [id number] 22:45:00 Test Item Value Reference Range Comments POC-GLUCOSE METER (BEAKER) 144 mg/dL 70-110 TESTED AT [address] (test npax=3098) [place] [address] [id number] 15:02:00 Test Item Value Reference Range Comments PARTIAL THROMBOPLASTIN TIME (BEAKER) (test 56.1 seconds 22.5-36.0 akoz=271) POCT-GLUCOSE [id number] 14:39:00 Test Item Value Reference Range Comments POC-GLUCOSE METER (BEAKER) 189 mg/dL 70-110 TESTED AT [address] (test seww=0326) [place] [address] HIV-1 PCR, [id number] 13:58:00 Test Item Value Reference Range Comments HIV-1 NUMERIC RESULT (BEAKER) (test dujx=2120) 170 Cp/mL <20 This test uses a Real-Time Polymerase Chain Reaction (RT-PCR) methodology to detect a highly conserved region of the HIV-1 gag gene and was performed using the ERICH AmpliPrep/ERICH TaqMan HIV-1 test kit version 2.0 ([employer]Reportable range for this assay is 20 - 10,000,000 copies per mL (1.3 - 7.0 Log copies/mL).[id number] 12:54:00 Test Item Value Reference Range Comments PARTIAL THROMBOPLASTIN TIME (BEAKER) (test 143.6 seconds 22.5-36.0 woyk=070) [id number] 10:00:00Medical Cytology Report Case: [id number] Authorizing Provider: Sd Solano MD Collected: 08/13/2018 [id number] Ordering Location: [address] Received: 08/14/2018 0920 Service Pathologist: Yamil Hamm MD Specimen: Pleural, Right RIGHT PLEURAL FLUID (CYTOSPINS AND CELL BLOCK): - NO MALIGNANT CELLS IDENTIFIED (SEE COMMENT) Signing Pathologist Direct Phone Line: [phone] signed by Yamil Hamm MD on 08/16/2018 [...] thoracentesis may be considered when fluid reaccumulates. 43834, 37348, 75429, 50858 x 2Left pleural effusion, history of AIDS, Kaposi's sarcoma, hepatitis C.RIGHT PLEURAL FLUID 300 mls bloody; 4 cytospins, cell blockCollected: [id number]: [id number] interpretation of this case included the use of immunohistochemistry or special stains. Please see the immunohistochemistry results in the COMMENT section. Immunohistochemistry technical testing was performed at [facility], Pathology Laboratory where it was developed and [...] Improvement Amendments of 1988 (CLIA-88) as qualified [facility] testing.[facility], Department of Pathology, [address] [place] [address], [address] [facility], Department of [facility]ology, [address] [place] [address], Zpmspy[address] [facility] [address] [place], Department of Pathology, [address] [place] [address], Tel [phone] 08:29:00 Test Item Value Reference Range Comments POC-GLUCOSE METER (BEAKER) 96 mg/dL 70-110 TESTED AT [address] (test qvfh=0504) [place] [address] BODY FLUID CULTURE + GRAM [id number] 07:54:00 Test Item Value Reference Range Comments CULTURE (BEAKER) (test watf=3554) No growth GRAM STAIN RESULT (BEAKER) (test <1+ WBCs zyoj=1916) GRAM STAIN RESULT (BEAKER) (test No organisms seen zrmd=76064) BASIC METABOLIC [id number] 06:30:00 Test Item Value Reference Range Comments SODIUM (BEAKER) (test 132 meq/L 136-145 bppc=994) POTASSIUM (BEAKER) (test 4.0 meq/L 3.5-5.1 mcfl=739) CHLORIDE (BEAKER) (test 99 meq/L 98-107 ywnc=854) CO2 (BEAKER) (test 21 meq/L 22-29 kwey=066) BLOOD UREA NITROGEN 41 mg/dL 7-21 (BEAKER) (test lxub=472) CREATININE (BEAKER) (test 6.80 mg/dL 0.57-1.25 sabj=827) GLUCOSE RANDOM (BEAKER) 95 mg/dL 70-105 (test kqav=908) CALCIUM (BEAKER) (test 8.7 mg/dL 8.4-10.2 gsyu=249) EGFR (BEAKER) (test 10 mL/min/1.73 sq m ESTIMATED GFR IS NOT wxgd=5514) ACCURATE CREATININE CLEARANCE IN PREDICTING GLOMERULAR FILTRATION RATE. ESTIMATED GFR IS NOT APPLICABLE FOR DIALYSIS PATIENTS. [id number] 06:26:00 Test Item Value Reference Range Comments MAGNESIUM (BEAKER) (test wsgb=234) 1.6 mg/dL 1.6-2.6 [id number] 05:48:00 Test Item Value Reference Range Comments PARTIAL THROMBOPLASTIN TIME (BEAKER) (test 80.3 seconds 22.5-36.0 uria=388) While on warfarin.PROTHROMBIN [id number] 05:46:00 Test Item Value Reference Range Comments PROTIME (BEAKER) (test ptua=612) 18.4 seconds 11.7-14.7 INR (BEAKER) (test fohf=609) 1.5 <=5.9 RECOMMENDED COUMADIN/WARFARIN INR THERAPY RANGESSTANDARD DOSE: 2.0 - 3.0 Includes: PROPHYLAXIS forvenous thrombosis, systemic embolization; TREATMENT for venous thrombosis and/or pulmonary embolus.HIGH RISK: Target INR is 2.5-3.5 for patients with mechanical heart valves.While on warfarin.CBC W/PLT COUNT &amp ; AUTO [id number] 05:28:00 Test Item Value Reference Range Comments WHITE BLOOD CELL COUNT (BEAKER) (test wxdv=654) 7.8 K/ L 3.5-10.5 RED BLOOD CELL COUNT (BEAKER) (test idjt=927) 3.27 M/ L 4.63-6.08 HEMOGLOBIN (BEAKER) (test pjed=148) 10.5 GM/DL 13.7-17.5 HEMATOCRIT (BEAKER) (test ayxf=025) 33.2 % 40.1-51.0 MEAN CORPUSCULAR VOLUME (BEAKER) (test xjet=047) 101.5 fL 79.0-92.2 MEAN CORPUSCULAR HEMOGLOBIN (BEAKER) (test 32.1 pg 25.7-32.2 vhjf=184) MEAN CORPUSCULAR HEMOGLOBIN CONC (BEAKER) (test 31.6 GM/DL 32.3-36.5 nbcx=198) RED CELL DISTRIBUTION WIDTH (BEAKER) (test 13.8 % 11.6-14.4 rcqc=522) PLATELET COUNT (BEAKER) (test rpos=514) 155 K/CU MM 150-450 MEAN PLATELET VOLUME (BEAKER) (test otuv=570) 9.0 fL 9.4-12.4 NUCLEATED RED BLOOD CELLS (BEAKER) (test 0 /100 WBC 0-0 hlhm=164) NEUTROPHILS RELATIVE PERCENT (BEAKER) (test 71 % yvpv=804) LYMPHOCYTES RELATIVE PERCENT (BEAKER) (test 13 % uskg=933) MONOCYTES RELATIVE PERCENT (BEAKER) (test 13 % rmav=220) EOSINOPHILS RELATIVE PERCENT (BEAKER) (test 2 % apaw=548) BASOPHILS RELATIVE PERCENT (BEAKER) (test 1 % widk=929) NEUTROPHILS ABSOLUTE COUNT (BEAKER) (test 5.49 K/ L 1.78-5.38 wiyy=727) LYMPHOCYTES ABSOLUTE COUNT (BEAKER) (test 1.00 K/ L 1.32-3.57 igix=041) MONOCYTES ABSOLUTE COUNT (BEAKER) (test 1.03 K/ L 0.30-0.82 cifd=911) EOSINOPHILS ABSOLUTE COUNT (BEAKER) (test 0.16 K/ L 0.04-0.54 hoyu=242) BASOPHILS ABSOLUTE COUNT (BEAKER) (test 0.05 K/ L 0.01-0.08 otqy=117) IMMATURE GRANULOCYTES-RELATIVE PERCENT (BEAKER) 1 % 0-1 (test qqxm=3889) [id number] 22:09:00 Test Item Value Reference Range Comments PARTIAL THROMBOPLASTIN TIME (BEAKER) (test 61.5 seconds 22.5-36.0 mmcr=414) RAD, CHEST, 1 VIEW, NON [id number] 20:20:00Reason for exam:->eval right effusionShould this be [...] Anderson Verified Date/Time: 08/15/2018 20:20:24 [facility] Electronically signed by: YEVGENIY ANDERSON M.D. on 08:20 PMPOCT-GLUCOSE [id number] 19:05:00 Test Item Value Reference Range Comments POC-GLUCOSE METER (BEAKER) 87 mg/dL 70-110 TESTED AT [address] (test pxkf=1218) [place] [id number] POCT-GLUCOSE [id number] 13:12:00 Test Item Value Reference Range Comments POC-GLUCOSE METER (BEAKER) 162 mg/dL 70-110 TESTED AT [address] (test wkwb=2028) [place] [address] [id number] 12:48:00 Test Item Value Reference Range Comments PARTIAL THROMBOPLASTIN TIME (BEAKER) (test 89.1 seconds 22.5-36.0 qrgj=288) POCT-GLUCOSE [id number] 09:58:00 Test Item Value Reference Range Comments POC-GLUCOSE METER (BEAKER) 229 mg/dL 70-110 TESTED AT [address] (test czil=6187) [place] [id number] BASIC METABOLIC [id number] 05:40:00 Test Item Value Reference Range Comments SODIUM (BEAKER) (test 137 meq/L 136-145 jqfa=735) POTASSIUM (BEAKER) (test 3.6 meq/L 3.5-5.1 zefv=473) CHLORIDE (BEAKER) (test 102 meq/L 98-107 zzhq=498) CO2 (BEAKER) (test 25 meq/L 22-29 nrqm=868) BLOOD UREA NITROGEN 28 mg/dL 7-21 (BEAKER) (test pfaa=045) CREATININE (BEAKER) (test 5.36 mg/dL 0.57-1.25 flew=833) GLUCOSE RANDOM (BEAKER) 114 mg/dL 70-105 (test fisy=458) CALCIUM (BEAKER) (test 8.6 mg/dL 8.4-10.2 rpbu=075) EGFR (BEAKER) (test 13 mL/min/1.73 sq m ESTIMATED GFR IS NOT nicl=3529) ACCURATE CREATININE CLEARANCE IN PREDICTING GLOMERULAR FILTRATION RATE. ESTIMATED GFR IS NOT APPLICABLE FOR DIALYSIS PATIENTS. CBC W/PLT COUNT & AUTO [id number] 05:38:00 Test Item Value Reference Range Comments WHITE BLOOD CELL COUNT (BEAKER) (test lhns=623) 6.9 K/ L 3.5-10.5 RED BLOOD CELL COUNT (BEAKER) (test lqae=790) 3.13 M/ L 4.63-6.08 HEMOGLOBIN (BEAKER) (test czlf=935) 10.3 GM/DL 13.7-17.5 HEMATOCRIT (BEAKER) (test khct=086) 32.2 % 40.1-51.0 MEAN CORPUSCULAR VOLUME (BEAKER) (test swpy=640) 102.9 fL 79.0-92.2 MEAN CORPUSCULAR HEMOGLOBIN (BEAKER) (test 32.9 pg 25.7-32.2 qwcv=354) MEAN CORPUSCULAR HEMOGLOBIN CONC (BEAKER) (test 32.0 GM/DL 32.3-36.5 lgqe=880) RED CELL DISTRIBUTION WIDTH (BEAKER) (test 14.0 % 11.6-14.4 fcyw=600) PLATELET COUNT (BEAKER) (test jnuq=149) 140 K/CU MM 150-450 MEAN PLATELET VOLUME (BEAKER) (test zsbs=294) 9.0 fL 9.4-12.4 NUCLEATED RED BLOOD CELLS (BEAKER) (test 0 /100 WBC 0-0 rzod=611) NEUTROPHILS RELATIVE PERCENT (BEAKER) (test 67 % jgrx=057) LYMPHOCYTES RELATIVE PERCENT (BEAKER) (test 14 % wacz=327) MONOCYTES RELATIVE PERCENT (BEAKER) (test 16 % tvwk=731) EOSINOPHILS RELATIVE PERCENT (BEAKER) (test 1 % dovx=842) BASOPHILS RELATIVE PERCENT (BEAKER) (test 1 % ctzb=825) NEUTROPHILS ABSOLUTE COUNT (BEAKER) (test 4.63 K/ L 1.78-5.38 kerh=076) LYMPHOCYTES ABSOLUTE COUNT (BEAKER) (test 0.96 K/ L 1.32-3.57 raza=470) MONOCYTES ABSOLUTE COUNT (BEAKER) (test 1.13 K/ L 0.30-0.82 rukw=720) EOSINOPHILS ABSOLUTE COUNT (BEAKER) (test 0.10 K/ L 0.04-0.54 lybx=590) BASOPHILS ABSOLUTE COUNT (BEAKER) (test 0.05 K/ L 0.01-0.08 whre=669) IMMATURE GRANULOCYTES-RELATIVE PERCENT (BEAKER) 0 % 0-1 (test zhlb=4109) [id number] 05:28:00 Test Item Value Reference Range Comments MAGNESIUM (BEAKER) (test bpvk=169) 1.8 mg/dL 1.6-2.6 [id number] 04:47:00 Test Item Value Reference Range Comments PARTIAL THROMBOPLASTIN TIME (BEAKER) (test 60.9 seconds 22.5-36.0 lpcj=212) PROTHROMBIN [id number] 04:46:00 Test Item Value Reference Range Comments PROTIME (BEAKER) (test itvv=968) 17.9 seconds 11.7-14.7 INR (BEAKER) (test wuth=316) 1.5 <=5.9 RECOMMENDED COUMADIN/WARFARIN INR THERAPY RANGESSTANDARD DOSE: 2.0 - 3.0 Includes: PROPHYLAXIS forvenous thrombosis, systemic embolization; TREATMENT for venous thrombosis and/or pulmonary embolus.HIGH RISK: Target INR is 2.5-3.5 for patients with mechanical heart valves.[id number] 20:56:00 Test Item Value Reference Range Comments PARTIAL THROMBOPLASTIN TIME (BEAKER) (test 52.1 seconds 22.5-36.0 mqtl=976) CT, CHEST, WITHOUT [id number] 19:06:00S/p fall in Nov--> right effusion, tapped [...] MDReport Verified Date/Time: 08/14/2018 19:06:09 Reading Location: [address] Reading Room [id number] 12:40:00 Test Item Value Reference Range Comments PARTIAL THROMBOPLASTIN TIME (BEAKER) (test 48.4 seconds 22.5-36.0 pmdb=652) CD4 T CELL [id number] 11:15:00 Test Item Value Reference Range Comments TOTAL LYMPHOCYTES FC (BEAKER) (test svut=1643) 935 /cu mm CD3+ TOTAL T CELLS % FC (BEAKER) (test wvap=4812) 78 % 49-84 CD3+ TOTAL T CELLS ABSOLUTE FC (BEAKER) (test 726 /cu mm 603-2,990 decg=3974) CD3+/CD8+ T SUPPRESSOR CELLS % FC (BEAKER) (test 33 % 10-40 uznr=1739) CD3+/CD8+ T SUPPRESSOR CELLS ABS FC (BEAKER) 309 /cu mm 125-1,312 (test lugo=9559) CD3+/CD4+ T HELPER CELLS % FC (BEAKER) (test 43 % 28-63 xxjn=7351) CD3+/CD4+ T HELPER CELLS ABS FC (BEAKER) (test 399 /cu mm 441-2,156 juoj=0645) CD4/CD8 RATIO FC (BEAKER) (test texw=6870) 1.29 0.70-3.23 CD16+/CD56+ NATURAL KILLER CELLS % FC (BEAKER) 11 % 4-25 (test efai=3925) CD16+/CD56+ NATURAL KILLER CELLS ABS FC (BEAKER) 107 /cu mm 95-640 (test erwh=8800) CD19+ TOTAL B CELLS % FC (BEAKER) (test 11 % 6-27 deag=6101) CD19+ TOTAL B CELLS ABS FC (BEAKER) (test 101 /cu mm 107-698 jmrv=6868) [id number] 10:48:00 Test Item Value Reference Range Comments PHOSPHORUS (BEAKER) (test cxpp=630) 5.2 mg/dL 2.3-4.7 BASIC METABOLIC [id number] 07:13:00 Test Item Value Reference Range Comments SODIUM (BEAKER) (test 132 meq/L 136-145 kzvi=403) POTASSIUM (BEAKER) (test 3.6 meq/L 3.5-5.1 wgdf=550) CHLORIDE (BEAKER) (test 94 meq/L 98-107 bmii=620) CO2 (BEAKER) (test 24 meq/L 22-29 prvq=650) BLOOD UREA NITROGEN 49 mg/dL 7-21 (BEAKER) (test assv=681) CREATININE (BEAKER) (test 7.61 mg/dL 0.57-1.25 vjvt=976) GLUCOSE RANDOM (BEAKER) 99 mg/dL 70-105 (test cmhn=057) CALCIUM (BEAKER) (test 8.5 mg/dL 8.4-10.2 uxih=729) EGFR (BEAKER) (test 9 mL/min/1.73 sq m ESTIMATED GFR IS NOT ppwn=8719) ACCURATE CREATININE CLEARANCE IN PREDICTING GLOMERULAR FILTRATION RATE. ESTIMATED GFR IS NOT APPLICABLE FOR DIALYSIS PATIENTS. [id number] 07:11:00 Test Item Value Reference Range Comments MAGNESIUM (BEAKER) (test rsvv=343) 1.8 mg/dL 1.6-2.6 [id number] 07:00:00 Test Item Value Reference Range Comments PARTIAL THROMBOPLASTIN TIME (BEAKER) (test 59.2 seconds 22.5-36.0 mnjk=207) PROTHROMBIN [id number] 06:59:00 Test Item Value Reference Range Comments PROTIME (BEAKER) (test vsgm=143) 18.1 seconds 11.7-14.7 INR (BEAKER) (test dydt=062) 1.5 <=5.9 RECOMMENDED COUMADIN/WARFARIN INR THERAPY RANGESSTANDARD DOSE: 2.0 - 3.0 Includes: PROPHYLAXIS forvenous thrombosis, systemic embolization; TREATMENT for venous thrombosis and/or pulmonary embolus.HIGH RISK: Target INR is 2.5-3.5 for patients with mechanical heart valves.CBC W/PLT COUNT & AUTO [id number] 06:57:00 Test Item Value Reference Range Comments WHITE BLOOD CELL COUNT (BEAKER) (test svqe=016) 5.8 K/ L 3.5-10.5 RED BLOOD CELL COUNT (BEAKER) (test mkxr=524) 3.20 M/ L 4.63-6.08 HEMOGLOBIN (BEAKER) (test cxxd=148) 10.4 GM/DL 13.7-17.5 HEMATOCRIT (BEAKER) (test cruo=153) 32.1 % 40.1-51.0 MEAN CORPUSCULAR VOLUME (BEAKER) (test sjea=132) 100.3 fL 79.0-92.2 MEAN CORPUSCULAR HEMOGLOBIN (BEAKER) (test 32.5 pg 25.7-32.2 lmwj=055) MEAN CORPUSCULAR HEMOGLOBIN CONC (BEAKER) (test 32.4 GM/DL 32.3-36.5 jsiq=534) RED CELL DISTRIBUTION WIDTH (BEAKER) (test 13.8 % 11.6-14.4 yttb=804) PLATELET COUNT (BEAKER) (test rgum=178) 139 K/CU MM 150-450 MEAN PLATELET VOLUME (BEAKER) (test eyqf=597) 9.3 fL 9.4-12.4 NUCLEATED RED BLOOD CELLS (BEAKER) (test 0 /100 WBC 0-0 kwnw=649) NEUTROPHILS RELATIVE PERCENT (BEAKER) (test 65 % kfqi=739) LYMPHOCYTES RELATIVE PERCENT (BEAKER) (test 16 % kpmw=210) MONOCYTES RELATIVE PERCENT (BEAKER) (test 17 % atwx=645) EOSINOPHILS RELATIVE PERCENT (BEAKER) (test 2 % hlos=647) BASOPHILS RELATIVE PERCENT (BEAKER) (test 1 % gocy=477) NEUTROPHILS ABSOLUTE COUNT (BEAKER) (test 3.72 K/ L 1.78-5.38 bnqd=967) LYMPHOCYTES ABSOLUTE COUNT (BEAKER) (test 0.90 K/ L 1.32-3.57 vgbs=531) MONOCYTES ABSOLUTE COUNT (BEAKER) (test 0.98 K/ L 0.30-0.82 qffl=353) EOSINOPHILS ABSOLUTE COUNT (BEAKER) (test 0.10 K/ L 0.04-0.54 tvwg=580) BASOPHILS ABSOLUTE COUNT (BEAKER) (test 0.04 K/ L 0.01-0.08 wyer=947) IMMATURE GRANULOCYTES-RELATIVE PERCENT (BEAKER) 1 % 0-1 (test saor=4072) [id number] 00:30:00 Test Item Value Reference Range Comments PARTIAL THROMBOPLASTIN TIME (BEAKER) (test 56.7 seconds 22.5-36.0 iygi=486) BODY FLUID CELL COUNT WITH [id number] 19:28:00 Test Item Value Reference Range Comments APPEARANCE FLUID (BEAKER) (test fsrc=917) Cloudy Clear COLOR FLUID (BEAKER) (test lyct=404) Red Colorless, Straw RBC FLUID (BEAKER) (test xurz=669) 34835 /cu mm <=1 ADJUSTED WBC FLUID (BEAKER) (test zrar=3175) 968 /cu mm <=5 LINING CELLS (BEAKER) (test wyro=8711) 0 /cu mm <=1 NEUTROPHILS FLUID (BEAKER) (test biqk=4679) 18 % LYMPHS FLUID (BEAKER) (test eypd=917) 61 % MONO/MACROPHAGE FLUID (BEAKER) (test jwyl=745) 21 % EOSINOPHILS FLUID (BEAKER) (test pcnz=148) 0 % BASO FLUID (BEAKER) (test urkt=270) 0 % CONTAINER BODY FLUID (BEAKER) (test iylm=8796) EDTA Tube ALBUMIN, BODY [id number] 18:40:00 Test Item Value Reference Range Comments ALBUMIN FLUID (BEAKER) (test jdow=376) 2.1 gm/dL Reference Range: No Normals Assay performance has not been validated for this type of specimen.LACTATE DEHYDROGENASE (LDH), BODY [id number] 18:40:00 Test Item Value Reference Range Comments LACTATE DEHYDROGENASE FLUID (BEAKER) (test jnbz=309) 268 U/L Absence of reference range indicates that normals have not been defined.Assay performance has not been validated for this type of specimen.GLUCOSE, BODY [id number] 18:40:00 Test Item Value Reference Range Comments GLUCOSE, BODY FLUID (BEAKER) (test wryf=2136) 102 mg/dL Absence of reference range indicates that normals have not been defined.Assay performance has not been validated for this type of specimen.LACTATE DEHYDROGENASE (LDH)2018-08-13 18:40:00 Test Item Value Reference Range Comments LACTATE DEHYDROGENASE (BEAKER) (test qacf=524) 280 U/L 125-220 HEPATIC FUNCTION [id number] 18:40:00 Test Item Value Reference Range Comments TOTAL PROTEIN (BEAKER) (test zikf=740) 8.2 gm/dL 6.0-8.3 ALBUMIN (BEAKER) (test hprn=4862) 3.3 g/dL 3.5-5.0 BILIRUBIN TOTAL (BEAKER) (test xlxa=943) 1.0 mg/dL 0.2-1.2 BILIRUBIN DIRECT (BEAKER) (test pozc=249) 0.6 mg/dL 0.1-0.5 ALKALINE PHOSPHATASE (BEAKER) (test awid=244) 85 U/L 40-150 AST (SGOT) (BEAKER) (test fczc=773) 38 U/L 5-34 ALT (SGPT) (BEAKER) (test jnol=619) 32 U/L 6-55 RAD, CHEST, 1 VIEW, NON [id number] 17:56:00Reason for exam:->post Right thoracentesisShould this be [...] MDReport Verified Date/Time: 08/13/2018 17:56:18 Reading Location: [facility] C013W Consult Reading Room U/S, [id number] 16:22 :00Reason for exam:->shortness of breath, recurrent right pleural effusionShould this be performed at the bedside?->NoFINAL REPORT Ultrasound guided right thoracentesis, 08/13/2018. Clinical History: Right pleural effusion. Modality: Ultrasound. Sedation: None. 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 Estimated Blood Loss: 1cc Specimen: 1600 [...] uncomplicated ultrasound guided right thoracentesis. Signed: [facility] Verified Date/Time: 08/13/2018 16:22:16 Reading Location: [address] Ultrasound Reading Room [id number] 07:18:00 Test Item Value Reference Range Comments MAGNESIUM (BEAKER) (test rifr=003) 2.0 mg/dL 1.6-2.6 BASIC METABOLIC [id number] 07:18:00 Test Item Value Reference Range Comments SODIUM (BEAKER) (test 134 meq/L 136-145 dntd=009) POTASSIUM (BEAKER) (test 3.6 meq/L 3.5-5.1 lpbo=526) CHLORIDE (BEAKER) (test 94 meq/L 98-107 raoa=441) CO2 (BEAKER) (test 28 meq/L 22-29 ryyo=088) BLOOD UREA NITROGEN 37 mg/dL 7-21 (BEAKER) (test qjgo=115) CREATININE (BEAKER) (test 5.93 mg/dL 0.57-1.25 korn=928) GLUCOSE RANDOM (BEAKER) 101 mg/dL 70-105 (test mrlo=349) CALCIUM (BEAKER) (test 8.9 mg/dL 8.4-10.2 sjat=278) EGFR (BEAKER) (test 12 mL/min/1.73 sq m ESTIMATED GFR IS NOT wyct=6496) ACCURATE CREATININE CLEARANCE IN PREDICTING GLOMERULAR FILTRATION RATE. ESTIMATED GFR IS NOT APPLICABLE FOR DIALYSIS PATIENTS. RAD, CHEST, 1 VIEW, NON [id number] 06:25:00Reason for exam:->SOBShould this be performed at [...] Taylor Verified Date/Time: 2017 06:25:21 Reading Location: [address] Transitional Reading Room [id number] 05:49:00 Test Item Value Reference Range Comments PARTIAL THROMBOPLASTIN TIME (BEAKER) (test 42.0 seconds 22.5-36.0 ylxw=749) PROTHROMBIN [id number] 05:48:00 Test Item Value Reference Range Comments PROTIME (BEAKER) (test ezvy=612) 22.1 seconds 11.7-14.7 INR (BEAKER) (test kypx=096) 1.9 <=5.9 RECOMMENDED COUMADIN/WARFARIN INR THERAPY RANGESSTANDARD DOSE: 2.0 - 3.0 Includes: PROPHYLAXIS forvenous thrombosis, systemic embolization; TREATMENT for venous thrombosis and/or pulmonary embolus.HIGH RISK: Target INR is 2.5-3.5 for patients with mechanical heart valves.CBC W/PLT COUNT & AUTO [id number] 05:37:00 Test Item Value Reference Range Comments WHITE BLOOD CELL COUNT (BEAKER) (test umfy=083) 6.1 K/ L 3.5-10.5 RED BLOOD CELL COUNT (BEAKER) (test ncup=791) 3.12 M/ L 4.63-6.08 HEMOGLOBIN (BEAKER) (test bens=233) 10.4 GM/DL 13.7-17.5 HEMATOCRIT (BEAKER) (test bmpz=745) 31.4 % 40.1-51.0 MEAN CORPUSCULAR VOLUME (BEAKER) (test hebz=684) 100.6 fL 79.0-92.2 MEAN CORPUSCULAR HEMOGLOBIN (BEAKER) (test 33.3 pg 25.7-32.2 bysq=079) MEAN CORPUSCULAR HEMOGLOBIN CONC (BEAKER) (test 33.1 GM/DL 32.3-36.5 vsvk=557) RED CELL DISTRIBUTION WIDTH (BEAKER) (test 14.3 % 11.6-14.4 pyvx=918) PLATELET COUNT (BEAKER) (test svur=684) 143 K/CU MM 150-450 MEAN PLATELET VOLUME (BEAKER) (test atas=090) 9.3 fL 9.4-12.4 NUCLEATED RED BLOOD CELLS (BEAKER) (test 0 /100 WBC 0-0 ufim=444) NEUTROPHILS RELATIVE PERCENT (BEAKER) (test 64 % ddgu=604) LYMPHOCYTES RELATIVE PERCENT (BEAKER) (test 13 % dwli=609) MONOCYTES RELATIVE PERCENT (BEAKER) (test 21 % yoeg=852) EOSINOPHILS RELATIVE PERCENT (BEAKER) (test 2 % gttk=489) BASOPHILS RELATIVE PERCENT (BEAKER) (test 1 % gwex=126) NEUTROPHILS ABSOLUTE COUNT (BEAKER) (test 3.85 K/ L 1.78-5.38 clmb=954) LYMPHOCYTES ABSOLUTE COUNT (BEAKER) (test 0.77 K/ L 1.32-3.57 lfkv=779) MONOCYTES ABSOLUTE COUNT (BEAKER) (test 1.27 K/ L 0.30-0.82 tjss=818) EOSINOPHILS ABSOLUTE COUNT (BEAKER) (test 0.09 K/ L 0.04-0.54 pbzj=080) BASOPHILS ABSOLUTE COUNT (BEAKER) (test 0.05 K/ L 0.01-0.08 ibds=588) IMMATURE GRANULOCYTES-RELATIVE PERCENT (BEAKER) 0 % 0-1 (test jtls=2806) POCT-GLUCOSE [id number] 18:30:00 Test Item Value Reference Range Comments POC-GLUCOSE METER (BEAKER) 80 mg/dL 70-110 TESTED AT [facility] [address] (test qdar=6891) [facility] [address] RAD, CHEST, 1 VIEW, NON [id number] 13:46:00Reason for exam:->evaluate pleural effusionShould this be performed at the bedside?->YesFINAL REPORT Comparison: 08/02/2018 TECHNIQUE: Single view of the chest FINDINGS Bilateral interstitial and airspace opacities are stable. Bilateral pleural effusions seen, right greater than left. No gross new lung parenchymal changes. Post surgical changes in the mediastinum. IMPRESSION: No significant interval change. Signed: Kyle Romeepdamion Verified Date/Time: 08/06/2018 13:46:20 Reading Location: [facility] Radiology Reading Room [id number] 09:33:00 Test Item Value Reference Range Comments PARTIAL THROMBOPLASTIN TIME (BEAKER) (test 113.6 seconds 22.5-36.0 iatt=725) [id number] 06:48:00 Test Item Value Reference Range Comments PROTIME (BEAKER) (test eoma=276) 23.2 seconds 11.7-14.7 INR (BEAKER) (test jppv=792) 2.1 <=5.9 PARTIAL THROMBOPLASTIN TIME (BEAKER) (test 164.1 seconds 22.5-36.0 shyp=660) RECOMMENDED COUMADIN/WARFARIN INR THERAPY RANGESSTANDARD DOSE: 2.0 - 3.0 Includes: PROPHYLAXIS forvenous thrombosis, systemic embolization; TREATMENT for venous thrombosis and/or pulmonary embolus.HIGH RISK: Target INR is 2.5-3.5 for patients with mechanical heart valves.While on warfarin.While on warfarin.BASIC METABOLIC [id number] 06:45:00 Test Item Value Reference Range Comments SODIUM (BEAKER) (test 136 meq/L 136-145 dipv=014) POTASSIUM (BEAKER) (test 3.9 meq/L 3.5-5.1 Specimen slightly ovkk=860) hemolyzed CHLORIDE (BEAKER) (test 98 meq/L 98-107 herl=075) CO2 (BEAKER) (test 29 meq/L 22-29 vluy=123) BLOOD UREA NITROGEN 27 mg/dL 7-21 (BEAKER) (test lmmg=954) CREATININE (BEAKER) (test 5.78 mg/dL 0.57-1.25 Specimen slightly xksg=027) hemolyzed GLUCOSE RANDOM (BEAKER) 92 mg/dL 70-105 (test lnut=551) CALCIUM (BEAKER) (test 9.2 mg/dL 8.4-10.2 jzkr=776) EGFR (BEAKER) (test 12 mL/min/1.73 sq m ESTIMATED GFR IS NOT dkak=7697) ACCURATE CREATININE CLEARANCE IN PREDICTING GLOMERULAR FILTRATION RATE. ESTIMATED GFR IS NOT APPLICABLE FOR DIALYSIS PATIENTS. PROTHROMBIN TIME/[id number] 06:43:00 Test Item Value Reference Range Comments PROTIME (BEAKER) (test ayto=080) 23.2 seconds 11.7-14.7 INR (BEAKER) (test ashq=533) 2.1 <=5.9 RECOMMENDED COUMADIN/WARFARIN INR THERAPY RANGESSTANDARD DOSE: 2.0 - 3.0 Includes: PROPHYLAXIS forvenous thrombosis, systemic embolization; TREATMENT for venous thrombosis and/or pulmonary embolus.HIGH RISK: Target INR is 2.5-3.5 for patients with mechanical heart valves.CBC W/PLT COUNT & AUTO [id number] 06:34:00 Test Item Value Reference Range Comments WHITE BLOOD CELL COUNT (BEAKER) (test lhvs=083) 6.0 K/ L 3.5-10.5 RED BLOOD CELL COUNT (BEAKER) (test hhgj=240) 3.40 M/ L 4.63-6.08 HEMOGLOBIN (BEAKER) (test urut=568) 11.2 GM/DL 13.7-17.5 HEMATOCRIT (BEAKER) (test dnmr=411) 34.2 % 40.1-51.0 MEAN CORPUSCULAR VOLUME (BEAKER) (test syvw=693) 100.6 fL 79.0-92.2 MEAN CORPUSCULAR HEMOGLOBIN (BEAKER) (test 32.9 pg 25.7-32.2 gmco=913) MEAN CORPUSCULAR HEMOGLOBIN CONC (BEAKER) (test 32.7 GM/DL 32.3-36.5 zwfu=410) RED CELL DISTRIBUTION WIDTH (BEAKER) (test 14.9 % 11.6-14.4 gtep=195) PLATELET COUNT (BEAKER) (test gifb=585) 117 K/CU MM 150-450 MEAN PLATELET VOLUME (BEAKER) (test fxlv=075) 9.5 fL 9.4-12.4 NUCLEATED RED BLOOD CELLS (BEAKER) (test 0 /100 WBC 0-0 hamo=737) NEUTROPHILS RELATIVE PERCENT (BEAKER) (test 65 % wivx=792) LYMPHOCYTES RELATIVE PERCENT (BEAKER) (test 17 % bqzu=154) MONOCYTES RELATIVE PERCENT (BEAKER) (test 16 % nypl=858) EOSINOPHILS RELATIVE PERCENT (BEAKER) (test 2 % pjow=439) BASOPHILS RELATIVE PERCENT (BEAKER) (test 1 % nfyz=086) NEUTROPHILS ABSOLUTE COUNT (BEAKER) (test 3.90 K/ L 1.78-5.38 pnal=560) LYMPHOCYTES ABSOLUTE COUNT (BEAKER) (test 1.00 K/ L 1.32-3.57 unwb=174) MONOCYTES ABSOLUTE COUNT (BEAKER) (test 0.94 K/ L 0.30-0.82 wmpf=278) EOSINOPHILS ABSOLUTE COUNT (BEAKER) (test 0.13 K/ L 0.04-0.54 dzoe=246) BASOPHILS ABSOLUTE COUNT (BEAKER) (test 0.04 K/ L 0.01-0.08 cepf=350) IMMATURE GRANULOCYTES-RELATIVE PERCENT (BEAKER) 0 % 0-1 (test zhxs=5750) CBC (HEMOGRAM ONLY)2018-08-06 06:23:00 Test Item Value Reference Range Comments WHITE BLOOD CELL COUNT (BEAKER) (test dsbw=262) 6.0 K/ L 3.5-10.5 RED BLOOD CELL COUNT (BEAKER) (test bcld=415) 3.40 M/ L 4.63-6.08 HEMOGLOBIN (BEAKER) (test cura=774) 11.2 GM/DL 13.7-17.5 HEMATOCRIT (BEAKER) (test elln=654) 34.2 % 40.1-51.0 MEAN CORPUSCULAR VOLUME (BEAKER) (test yvcf=635) 100.6 fL 79.0-92.2 MEAN CORPUSCULAR HEMOGLOBIN (BEAKER) (test 32.9 pg 25.7-32.2 syeq=980) MEAN CORPUSCULAR HEMOGLOBIN CONC (BEAKER) (test 32.7 GM/DL 32.3-36.5 lsqi=457) RED CELL DISTRIBUTION WIDTH (BEAKER) (test 14.9 % 11.6-14.4 czcw=729) PLATELET COUNT (BEAKER) (test xgxr=060) 117 K/CU MM 150-450 MEAN PLATELET VOLUME (BEAKER) (test cddc=436) 9.5 fL 9.4-12.4 NUCLEATED RED BLOOD CELLS (BEAKER) (test 0 /100 WBC 0-0 nzpf=984) [id number] 20:40:00 Test Item Value Reference Range Comments PARTIAL THROMBOPLASTIN TIME (BEAKER) (test 81.7 seconds 22.5-36.0 ginf=319) [id number] 14:05:00 Test Item Value Reference Range Comments PARTIAL THROMBOPLASTIN TIME (BEAKER) (test 91.5 seconds 22.5-36.0 hcsa=546) BASIC METABOLIC [id number] 07:02:00 Test Item Value Reference Range Comments SODIUM (BEAKER) (test 130 meq/L 136-145 xvml=119) POTASSIUM (BEAKER) (test 4.3 meq/L 3.5-5.1 brhg=861) CHLORIDE (BEAKER) (test 97 meq/L 98-107 qdif=988) CO2 (BEAKER) (test 19 meq/L 22-29 rrft=928) BLOOD UREA NITROGEN 52 mg/dL 7-21 (BEAKER) (test veql=511) CREATININE (BEAKER) (test 8.62 mg/dL 0.57-1.25 bbcs=898) GLUCOSE RANDOM (BEAKER) 75 mg/dL 70-105 (test viva=662) CALCIUM (BEAKER) (test 9.3 mg/dL 8.4-10.2 dktx=483) EGFR (BEAKER) (test 8 mL/min/1.73 sq m ESTIMATED GFR IS NOT gevh=4578) ACCURATE CREATININE CLEARANCE IN PREDICTING GLOMERULAR FILTRATION RATE. ESTIMATED GFR IS NOT APPLICABLE FOR DIALYSIS PATIENTS. PT/[id number] 06:47:00 Test Item Value Reference Range Comments PROTIME (BEAKER) (test tlax=291) 19.8 seconds 11.7-14.7 INR (BEAKER) (test pfft=744) 1.7 <=5.9 PARTIAL THROMBOPLASTIN TIME (BEAKER) (test 44.1 seconds 22.5-36.0 ecoz=939) RECOMMENDED COUMADIN/WARFARIN INR THERAPY RANGESSTANDARD DOSE: 2.0 - 3.0 Includes: PROPHYLAXIS forvenous thrombosis, systemic embolization; TREATMENT for venous thrombosis and/or pulmonary embolus.HIGH RISK: Target INR is 2.5-3.5 for patients with mechanical heart valves.Ok to add onOk to add onPROTHROMBIN TIME/[id number] 06:46:00 Test Item Value Reference Range Comments PROTIME (BEAKER) (test lrmb=372) 19.8 seconds 11.7-14.7 INR (BEAKER) (test nlmz=524) 1.7 <=5.9 RECOMMENDED COUMADIN/WARFARIN INR THERAPY RANGESSTANDARD DOSE: 2.0 - 3.0 Includes: PROPHYLAXIS forvenous thrombosis, systemic embolization; TREATMENT for venous thrombosis and/or pulmonary embolus.HIGH RISK: Target INR is 2.5-3.5 for patients with mechanical heart valves.CBC W/PLT COUNT & AUTO [id number] 06:38:00 Test Item Value Reference Range Comments WHITE BLOOD CELL COUNT (BEAKER) (test amgq=856) 6.4 K/ L 3.5-10.5 RED BLOOD CELL COUNT (BEAKER) (test biht=594) 3.40 M/ L 4.63-6.08 HEMOGLOBIN (BEAKER) (test xocf=797) 11.2 GM/DL 13.7-17.5 HEMATOCRIT (BEAKER) (test vsew=116) 33.8 % 40.1-51.0 MEAN CORPUSCULAR VOLUME (BEAKER) (test frly=944) 99.4 fL 79.0-92.2 MEAN CORPUSCULAR HEMOGLOBIN (BEAKER) (test 32.9 pg 25.7-32.2 cdfu=957) MEAN CORPUSCULAR HEMOGLOBIN CONC (BEAKER) (test 33.1 GM/DL 32.3-36.5 zizd=418) RED CELL DISTRIBUTION WIDTH (BEAKER) (test 14.6 % 11.6-14.4 zxzp=740) PLATELET COUNT (BEAKER) (test reox=547) 122 K/CU MM 150-450 MEAN PLATELET VOLUME (BEAKER) (test lgpb=060) 10.1 fL 9.4-12.4 NUCLEATED RED BLOOD CELLS (BEAKER) (test 0 /100 WBC 0-0 nclt=543) NEUTROPHILS RELATIVE PERCENT (BEAKER) (test 62 % ozsm=994) LYMPHOCYTES RELATIVE PERCENT (BEAKER) (test 20 % mcjr=830) MONOCYTES RELATIVE PERCENT (BEAKER) (test 15 % iaht=246) EOSINOPHILS RELATIVE PERCENT (BEAKER) (test 3 % vocy=092) BASOPHILS RELATIVE PERCENT (BEAKER) (test 1 % obpo=502) NEUTROPHILS ABSOLUTE COUNT (BEAKER) (test 3.96 K/ L 1.78-5.38 mvbi=788) LYMPHOCYTES ABSOLUTE COUNT (BEAKER) (test 1.25 K/ L 1.32-3.57 bdps=254) MONOCYTES ABSOLUTE COUNT (BEAKER) (test 0.93 K/ L 0.30-0.82 dxdv=261) EOSINOPHILS ABSOLUTE COUNT (BEAKER) (test 0.17 K/ L 0.04-0.54 talv=505) BASOPHILS ABSOLUTE COUNT (BEAKER) (test 0.04 K/ L 0.01-0.08 yypj=558) IMMATURE GRANULOCYTES-RELATIVE PERCENT (BEAKER) 0 % 0-1 (test nbhy=9670) [id number] 16:22:00 Test Item Value Reference Range Comments PARTIAL THROMBOPLASTIN TIME (BEAKER) (test 76.1 seconds 22.5-36.0 yyrz=241) BODY FLUID CULTURE + GRAM [id number] 09:10:00 Test Item Value Reference Range Comments CULTURE (BEAKER) (test fvsc=7752) No growth GRAM STAIN RESULT (BEAKER) (test <1+ WBCs jrqh=2884) GRAM STAIN RESULT (BEAKER) (test No organisms seen ctsl=50106) CBC W/PLT COUNT & AUTO [id number] 07:23:00 Test Item Value Reference Range Comments WHITE BLOOD CELL COUNT (BEAKER) (test uxwp=496) 7.1 K/ L 3.5-10.5 RED BLOOD CELL COUNT (BEAKER) (test uvmt=027) 3.54 M/ L 4.63-6.08 HEMOGLOBIN (BEAKER) (test doiy=107) 11.6 GM/DL 13.7-17.5 HEMATOCRIT (BEAKER) (test xyvx=236) 35.6 % 40.1-51.0 MEAN CORPUSCULAR VOLUME (BEAKER) (test wbho=575) 100.6 fL 79.0-92.2 MEAN CORPUSCULAR HEMOGLOBIN (BEAKER) (test 32.8 pg 25.7-32.2 zucj=619) MEAN CORPUSCULAR HEMOGLOBIN CONC (BEAKER) (test 32.6 GM/DL 32.3-36.5 qqay=025) RED CELL DISTRIBUTION WIDTH (BEAKER) (test 14.7 % 11.6-14.4 lhmf=922) PLATELET COUNT (BEAKER) (test kder=973) 115 K/CU MM 150-450 MEAN PLATELET VOLUME (BEAKER) (test dtqi=511) 9.8 fL 9.4-12.4 NUCLEATED RED BLOOD CELLS (BEAKER) (test 0 /100 WBC 0-0 pkte=537) NEUTROPHILS RELATIVE PERCENT (BEAKER) (test 66 % atvh=492) LYMPHOCYTES RELATIVE PERCENT (BEAKER) (test 17 % jhwe=981) MONOCYTES RELATIVE PERCENT (BEAKER) (test 14 % tcsw=508) EOSINOPHILS RELATIVE PERCENT (BEAKER) (test 2 % zafb=123) BASOPHILS RELATIVE PERCENT (BEAKER) (test 0 % rpdu=718) NEUTROPHILS ABSOLUTE COUNT (BEAKER) (test 4.67 K/ L 1.78-5.38 keff=623) LYMPHOCYTES ABSOLUTE COUNT (BEAKER) (test 1.23 K/ L 1.32-3.57 zqzk=694) MONOCYTES ABSOLUTE COUNT (BEAKER) (test 1.02 K/ L 0.30-0.82 euyf=968) EOSINOPHILS ABSOLUTE COUNT (BEAKER) (test 0.14 K/ L 0.04-0.54 tqcw=585) BASOPHILS ABSOLUTE COUNT (BEAKER) (test 0.03 K/ L 0.01-0.08 gtph=368) IMMATURE GRANULOCYTES-RELATIVE PERCENT (BEAKER) 0 % 0-1 (test vnas=1925) CBC (HEMOGRAM ONLY)2018-08-04 07:23:00 Test Item Value Reference Range Comments WHITE BLOOD CELL COUNT (BEAKER) (test wmcb=819) 7.1 K/ L 3.5-10.5 RED BLOOD CELL COUNT (BEAKER) (test roep=497) 3.54 M/ L 4.63-6.08 HEMOGLOBIN (BEAKER) (test uooz=323) 11.6 GM/DL 13.7-17.5 HEMATOCRIT (BEAKER) (test nncr=452) 35.6 % 40.1-51.0 MEAN CORPUSCULAR VOLUME (BEAKER) (test ebdm=168) 100.6 fL 79.0-92.2 MEAN CORPUSCULAR HEMOGLOBIN (BEAKER) (test 32.8 pg 25.7-32.2 bref=112) MEAN CORPUSCULAR HEMOGLOBIN CONC (BEAKER) (test 32.6 GM/DL 32.3-36.5 fvhb=342) RED CELL DISTRIBUTION WIDTH (BEAKER) (test 14.7 % 11.6-14.4 biux=985) PLATELET COUNT (BEAKER) (test rkab=766) 115 K/CU MM 150-450 MEAN PLATELET VOLUME (BEAKER) (test xjim=882) 9.8 fL 9.4-12.4 NUCLEATED RED BLOOD CELLS (BEAKER) (test 0 /100 WBC 0-0 vrhk=816) BASIC METABOLIC [id number] 07:05:00 Test Item Value Reference Range Comments SODIUM (BEAKER) (test 134 meq/L 136-145 amap=507) POTASSIUM (BEAKER) (test 4.0 meq/L 3.5-5.1 ufnn=736) CHLORIDE (BEAKER) (test 100 meq/L 98-107 adku=132) CO2 (BEAKER) (test 24 meq/L 22-29 venv=812) BLOOD UREA NITROGEN 38 mg/dL 7-21 (BEAKER) (test qvdg=855) CREATININE (BEAKER) (test 7.15 mg/dL 0.57-1.25 zmmu=265) GLUCOSE RANDOM (BEAKER) 92 mg/dL 70-105 (test kgdg=835) CALCIUM (BEAKER) (test 9.5 mg/dL 8.4-10.2 uszt=390) EGFR (BEAKER) (test 10 mL/min/1.73 sq m ESTIMATED GFR IS NOT nhfd=0257) ACCURATE CREATININE CLEARANCE IN PREDICTING GLOMERULAR FILTRATION RATE. ESTIMATED GFR IS NOT APPLICABLE FOR DIALYSIS PATIENTS. PT/[id number] 06:53:00 Test Item Value Reference Range Comments PROTIME (BEAKER) (test wsll=603) 17.5 seconds 11.7-14.7 INR (BEAKER) (test nkru=784) 1.4 <=5.9 PARTIAL THROMBOPLASTIN TIME (BEAKER) (test 70.3 seconds 22.5-36.0 dijk=489) RECOMMENDED COUMADIN/WARFARIN INR THERAPY RANGESSTANDARD DOSE: 2.0 - 3.0 Includes: PROPHYLAXIS forvenous thrombosis, systemic embolization; TREATMENT for venous thrombosis and/or pulmonary embolus.HIGH RISK: Target INR is 2.5-3.5 for patients with mechanical heart valves.Ok to add onOk to add [id number] 06:53:00 Test Item Value Reference Range Comments PARTIAL THROMBOPLASTIN TIME (BEAKER) (test 70.3 seconds 22.5-36.0 qlhj=411) PROTHROMBIN TIME/[id number] 06:52:00 Test Item Value Reference Range Comments PROTIME (BEAKER) (test mzok=746) 17.5 seconds 11.7-14.7 INR (BEAKER) (test dqck=034) 1.4 <=5.9 RECOMMENDED COUMADIN/WARFARIN INR THERAPY RANGESSTANDARD DOSE: 2.0 - 3.0 Includes: PROPHYLAXIS forvenous thrombosis, systemic embolization; TREATMENT for venous thrombosis and/or pulmonary embolus.HIGH RISK: Target INR is 2.5-3.5 for patients with mechanical heart valves.PROTHROMBIN TIME/[id number] 06:51: 00 Test Item Value Reference Range Comments PROTIME (BEAKER) (test vbxn=278) 17.7 seconds 11.7-14.7 INR (BEAKER) (test sbzd=029) 1.5 <=5.9 RECOMMENDED COUMADIN/WARFARIN INR THERAPY RANGESSTANDARD DOSE: 2.0 - 3.0 Includes: PROPHYLAXIS forvenous thrombosis, systemic embolization; TREATMENT for venous thrombosis and/or pulmonary embolus.HIGH RISK: Target INR is 2.5-3.5 for patients with mechanical heart valves.While on warfarin.[id number] 22:47 :00 Test Item Value Reference Range Comments PARTIAL THROMBOPLASTIN TIME (BEAKER) (test 73.6 seconds 22.5-36.0 ysyh=958) [id number] 13:08:00 Test Item Value Reference Range Comments PARTIAL THROMBOPLASTIN TIME (BEAKER) (test 49.2 seconds 22.5-36.0 aibt=359) BASIC METABOLIC [id number] 06:56:00 Test Item Value Reference Range Comments SODIUM (BEAKER) (test 135 meq/L 136-145 nbma=287) POTASSIUM (BEAKER) (test 4.2 meq/L 3.5-5.1 zifo=448) CHLORIDE (BEAKER) (test 101 meq/L 98-107 flpp=958) CO2 (BEAKER) (test 26 meq/L 22-29 gpzy=803) BLOOD UREA NITROGEN 21 mg/dL 7-21 (BEAKER) (test lfhu=785) CREATININE (BEAKER) (test 5.04 mg/dL 0.57-1.25 dwun=759) GLUCOSE RANDOM (BEAKER) 92 mg/dL 70-105 (test mgmn=911) CALCIUM (BEAKER) (test 9.5 mg/dL 8.4-10.2 tkui=127) EGFR (BEAKER) (test 14 mL/min/1.73 sq m ESTIMATED GFR IS NOT xrpb=0935) ACCURATE CREATININE CLEARANCE IN PREDICTING GLOMERULAR FILTRATION RATE. ESTIMATED GFR IS NOT APPLICABLE FOR DIALYSIS PATIENTS. [id number] 06:56:00 Test Item Value Reference Range Comments PARTIAL THROMBOPLASTIN TIME (BEAKER) (test 67.5 seconds 22.5-36.0 fykf=419) [id number] 06:45:00 Test Item Value Reference Range Comments PROTIME (BEAKER) (test ccmf=969) 18.6 seconds 11.7-14.7 INR (BEAKER) (test fcnd=108) 1.6 <=5.9 PARTIAL THROMBOPLASTIN TIME (BEAKER) (test 62.0 seconds 22.5-36.0 qafn=899) RECOMMENDED COUMADIN/WARFARIN INR THERAPY RANGESSTANDARD DOSE: 2.0 - 3.0 Includes: PROPHYLAXIS forvenous thrombosis, systemic embolization; TREATMENT for venous thrombosis and/or pulmonary embolus.HIGH RISK: Target INR is 2.5-3.5 for patients with mechanical heart valves.Ok to add onOk to add onPROTHROMBIN [id number] 06:44:00 Test Item Value Reference Range Comments PROTIME (BEAKER) (test psav=839) 18.6 seconds 11.7-14.7 INR (BEAKER) (test kmer=065) 1.6 <=5.9 RECOMMENDED COUMADIN/WARFARIN INR THERAPY RANGESSTANDARD DOSE: 2.0 - 3.0 Includes: PROPHYLAXIS forvenous thrombosis, systemic embolization; TREATMENT for venous thrombosis and/or pulmonary embolus.HIGH RISK: Target INR is 2.5-3.5 for patients with mechanical heart valves.CBC W/PLT COUNT & AUTO [id number] 06:28:00 Test Item Value Reference Range Comments WHITE BLOOD CELL COUNT (BEAKER) (test jpcn=432) 6.1 K/ L 3.5-10.5 RED BLOOD CELL COUNT (BEAKER) (test lssd=360) 3.44 M/ L 4.63-6.08 HEMOGLOBIN (BEAKER) (test teqo=600) 11.4 GM/DL 13.7-17.5 HEMATOCRIT (BEAKER) (test jpmd=037) 34.9 % 40.1-51.0 MEAN CORPUSCULAR VOLUME (BEAKER) (test lxuv=217) 101.5 fL 79.0-92.2 MEAN CORPUSCULAR HEMOGLOBIN (BEAKER) (test 33.1 pg 25.7-32.2 cwpb=566) MEAN CORPUSCULAR HEMOGLOBIN CONC (BEAKER) (test 32.7 GM/DL 32.3-36.5 yeee=283) RED CELL DISTRIBUTION WIDTH (BEAKER) (test 14.8 % 11.6-14.4 txel=506) PLATELET COUNT (BEAKER) (test fydj=584) 98 K/CU MM 150-450 MEAN PLATELET VOLUME (BEAKER) (test wjgr=351) 9.6 fL 9.4-12.4 NUCLEATED RED BLOOD CELLS (BEAKER) (test 0 /100 WBC 0-0 ucfn=157) NEUTROPHILS RELATIVE PERCENT (BEAKER) (test 66 % ibui=409) LYMPHOCYTES RELATIVE PERCENT (BEAKER) (test 17 % yzag=371) MONOCYTES RELATIVE PERCENT (BEAKER) (test 15 % rhaj=343) EOSINOPHILS RELATIVE PERCENT (BEAKER) (test 2 % purp=466) BASOPHILS RELATIVE PERCENT (BEAKER) (test 1 % pjkx=507) NEUTROPHILS ABSOLUTE COUNT (BEAKER) (test 3.99 K/ L 1.78-5.38 cfbi=742) LYMPHOCYTES ABSOLUTE COUNT (BEAKER) (test 1.02 K/ L 1.32-3.57 vljn=325) MONOCYTES ABSOLUTE COUNT (BEAKER) (test gygq=743) 0.89 K/ L 0.30-0.82 EOSINOPHILS ABSOLUTE COUNT (BEAKER) (test 0.12 K/ L 0.04-0.54 rfni=555) BASOPHILS ABSOLUTE COUNT (BEAKER) (test grlb=442) 0.03 K/ L 0.01-0.08 IMMATURE GRANULOCYTES-RELATIVE PERCENT (BEAKER) 0 % 0-1 (test ikej=2643) CBC (HEMOGRAM ONLY)2018-08-03 06:28:00 Test Item Value Reference Range Comments WHITE BLOOD CELL COUNT (BEAKER) (test hlhz=440) 6.1 K/ L 3.5-10.5 RED BLOOD CELL COUNT (BEAKER) (test uhdh=257) 3.44 M/ L 4.63-6.08 HEMOGLOBIN (BEAKER) (test twlu=132) 11.4 GM/DL 13.7-17.5 HEMATOCRIT (BEAKER) (test jvlw=043) 34.9 % 40.1-51.0 MEAN CORPUSCULAR VOLUME (BEAKER) (test fmrp=082) 101.5 fL 79.0-92.2 MEAN CORPUSCULAR HEMOGLOBIN (BEAKER) (test 33.1 pg 25.7-32.2 iohi=346) MEAN CORPUSCULAR HEMOGLOBIN CONC (BEAKER) (test 32.7 GM/DL 32.3-36.5 pvqq=243) RED CELL DISTRIBUTION WIDTH (BEAKER) (test 14.8 % 11.6-14.4 bkog=860) PLATELET COUNT (BEAKER) (test uvxo=689) 98 K/CU MM 150-450 MEAN PLATELET VOLUME (BEAKER) (test yvmz=969) 9.6 fL 9.4-12.4 NUCLEATED RED BLOOD CELLS (BEAKER) (test 0 /100 WBC 0-0 tona=066) [id number] 02:18:00 Test Item Value Reference Range Comments PARTIAL THROMBOPLASTIN TIME (BEAKER) (test 67.1 seconds 22.5-36.0 ciix=284) [id number] 18:56:00 Test Item Value Reference Range Comments PARTIAL THROMBOPLASTIN TIME (BEAKER) (test 72.5 seconds 22.5-36.0 wpov=690) POCT-GLUCOSE [id number] 13:08:00 Test Item Value Reference Range Comments POC-GLUCOSE METER (BEAKER) 121 mg/dL 70-110 TESTED AT [facility] [address] (test pxzi=0070) [place] [address] [id number] 12:07:00 Test Item Value Reference Range Comments PARTIAL THROMBOPLASTIN TIME (BEAKER) (test 50.7 seconds 22.5-36.0 wlag=369) Ok to add onPROTHROMBIN TIME/[id number] 12:05:00 Test Item Value Reference Range Comments PROTIME (BEAKER) (test gtgo=096) 16.7 seconds 11.7-14.7 INR (BEAKER) (test zijf=777) 1.4 <=5.9 RECOMMENDED COUMADIN/WARFARIN INR THERAPY RANGESSTANDARD DOSE: 2.0 - 3.0 Includes: PROPHYLAXIS forvenous thrombosis, systemic embolization; TREATMENT for venous thrombosis and/or pulmonary embolus.HIGH RISK: Target INR is 2.5-3.5 for patients with mechanical heart valves.Ok to add onCBC (HEMOGRAM ONLY)2018-08 11:55:00 Test Item Value Reference Range Comments WHITE BLOOD CELL COUNT (BEAKER) (test srut=521) 5.4 K/ L 3.5-10.5 RED BLOOD CELL COUNT (BEAKER) (test unts=077) 3.35 M/ L 4.63-6.08 HEMOGLOBIN (BEAKER) (test ivoq=682) 11.1 GM/DL 13.7-17.5 HEMATOCRIT (BEAKER) (test yofa=260) 34.1 % 40.1-51.0 MEAN CORPUSCULAR VOLUME (BEAKER) (test dice=958) 101.8 fL 79.0-92.2 MEAN CORPUSCULAR HEMOGLOBIN (BEAKER) (test 33.1 pg 25.7-32.2 yiwv=371) MEAN CORPUSCULAR HEMOGLOBIN CONC (BEAKER) (test 32.6 GM/DL 32.3-36.5 yxda=967) RED CELL DISTRIBUTION WIDTH (BEAKER) (test 14.8 % 11.6-14.4 qihm=484) PLATELET COUNT (BEAKER) (test ohmm=126) 115 K/CU MM 150-450 MEAN PLATELET VOLUME (BEAKER) (test lwny=461) 9.3 fL 9.4-12.4 NUCLEATED RED BLOOD CELLS (BEAKER) (test 0 /100 WBC 0-0 znnr=358) RAD, CHEST, 1 VIEW, NON [id number] 11:24:00Reason for exam:->pleural effusionShould this be performed at the bedside?->YesFINAL REPORT AP chest HISTORY: Pleural effusion COMPARISON: 08/01/2018 IMPRESSION:Intact skeleton. Cardiomegaly. Moderate interstitial edema. Moderate right and small left effusions. No pneumothorax. Signed: Mandy Chairez MDReport Verified Date/Time: 08/02/2018 11:24:33 Reading Location: [facility] C0[facility] Ortho Consult Reading Room BASIC METABOLIC [id number] 02:55:00 Test Item Value Reference Range Comments SODIUM (BEAKER) (test 134 meq/L 136-145 pspd=392) POTASSIUM (BEAKER) (test 4.5 meq/L 3.5-5.1 sabv=922) CHLORIDE (BEAKER) (test 99 meq/L 98-107 dqkm=506) CO2 (BEAKER) (test 23 meq/L 22-29 wxsf=146) BLOOD UREA NITROGEN 38 mg/dL 7-21 (BEAKER) (test enqb=393) CREATININE (BEAKER) (test 6.61 mg/dL 0.57-1.25 kiqa=844) GLUCOSE RANDOM (BEAKER) 86 mg/dL 70-105 (test rzhv=159) CALCIUM (BEAKER) (test 9.2 mg/dL 8.4-10.2 eqni=815) EGFR (BEAKER) (test 10 mL/min/1.73 sq m ESTIMATED GFR IS NOT slvh=8345) ACCURATE CREATININE CLEARANCE IN PREDICTING GLOMERULAR FILTRATION RATE. ESTIMATED GFR IS NOT APPLICABLE FOR DIALYSIS PATIENTS. [id number] 02:39:00 Test Item Value Reference Range Comments PARTIAL THROMBOPLASTIN TIME (BEAKER) (test 51.6 seconds 22.5-36.0 vwdo=602) CBC W/PLT COUNT & AUTO [id number] 02:30:00 Test Item Value Reference Range Comments WHITE BLOOD CELL COUNT (BEAKER) (test oqiz=858) 5.6 K/ L 3.5-10.5 RED BLOOD CELL COUNT (BEAKER) (test yfbg=423) 3.49 M/ L 4.63-6.08 HEMOGLOBIN (BEAKER) (test abwq=669) 11.5 GM/DL 13.7-17.5 HEMATOCRIT (BEAKER) (test exgb=557) 35.1 % 40.1-51.0 MEAN CORPUSCULAR VOLUME (BEAKER) (test lsix=276) 100.6 fL 79.0-92.2 MEAN CORPUSCULAR HEMOGLOBIN (BEAKER) (test 33.0 pg 25.7-32.2 bopf=190) MEAN CORPUSCULAR HEMOGLOBIN CONC (BEAKER) (test 32.8 GM/DL 32.3-36.5 ablr=218) RED CELL DISTRIBUTION WIDTH (BEAKER) (test 14.9 % 11.6-14.4 ewgg=966) PLATELET COUNT (BEAKER) (test tbyv=083) 117 K/CU MM 150-450 MEAN PLATELET VOLUME (BEAKER) (test xxjs=259) 9.8 fL 9.4-12.4 NUCLEATED RED BLOOD CELLS (BEAKER) (test 0 /100 WBC 0-0 ogbq=289) NEUTROPHILS RELATIVE PERCENT (BEAKER) (test 64 % myre=392) LYMPHOCYTES RELATIVE PERCENT (BEAKER) (test 18 % iary=468) MONOCYTES RELATIVE PERCENT (BEAKER) (test 15 % lpjz=848) EOSINOPHILS RELATIVE PERCENT (BEAKER) (test 2 % hois=198) BASOPHILS RELATIVE PERCENT (BEAKER) (test 1 % viwb=907) NEUTROPHILS ABSOLUTE COUNT (BEAKER) (test 3.59 K/ L 1.78-5.38 wsiw=619) LYMPHOCYTES ABSOLUTE COUNT (BEAKER) (test 1.02 K/ L 1.32-3.57 alkj=863) MONOCYTES ABSOLUTE COUNT (BEAKER) (test 0.84 K/ L 0.30-0.82 dqgv=150) EOSINOPHILS ABSOLUTE COUNT (BEAKER) (test 0.13 K/ L 0.04-0.54 pxrn=178) BASOPHILS ABSOLUTE COUNT (BEAKER) (test 0.04 K/ L 0.01-0.08 gcmo=980) IMMATURE GRANULOCYTES-RELATIVE PERCENT (BEAKER) 0 % 0-1 (test qsas=2805) BODY FLUID CELL COUNT WITH [id number] 21:13:00 Test Item Value Reference Range Comments APPEARANCE FLUID (BEAKER) (test xltp=143) Bloody Clear COLOR FLUID (BEAKER) (test tyvr=610) Sunil Colorless, Straw RBC FLUID (BEAKER) (test vpic=316) 85438 /cu mm <=1 ADJUSTED WBC FLUID (BEAKER) (test rkco=1348) 462 /cu mm <=5 LINING CELLS (BEAKER) (test acjk=8251) 0 /cu mm <=1 NEUTROPHILS FLUID (BEAKER) (test irxb=4450) 1 % LYMPHS FLUID (BEAKER) (test bdvy=741) 32 % MONO/MACROPHAGE FLUID (BEAKER) (test qcmr=713) 67 % EOSINOPHILS FLUID (BEAKER) (test jbsc=307) 0 % BASO FLUID (BEAKER) (test pcub=076) 0 % CONTAINER BODY FLUID (BEAKER) (test fyqz=0293) EDTA Tube ALBUMIN, BODY [id number] 20:00:00 Test Item Value Reference Range Comments ALBUMIN FLUID (BEAKER) (test oxjh=497) 2.1 gm/dL Reference Range: No Normals Assay performance has not been validated for this type of specimen.LACTATE DEHYDROGENASE (LDH), BODY [id number] 20:00:00 Test Item Value Reference Range Comments LACTATE DEHYDROGENASE FLUID (BEAKER) (test gcch=041) 216 U/L Absence of reference range indicates that normals have not been defined.Assay performance has not been validated for this type of specimen.PROTEIN, BODY [id number] 20:00:00 Test Item Value Reference Range Comments PROTEIN FLUID (BEAKER) (test frmv=661) 4.6 g/dL Absence of reference range indicates that normals have not been defined.Assay performance has not been validated for this type of specimen.GLUCOSE, BODY [id number] 20:00:00 Test Item Value Reference Range Comments GLUCOSE, BODY FLUID (BEAKER) (test hkch=5843) 103 mg/dL Absence of reference range indicates that normals have not been defined.Assay performance has not been validated for this type of specimen.RAD, CHEST, PA OR AP, 1 [id number] 17:08:00Ultrasound Room 1Reason for exam:->s/p Right sided [...] MDReport Verified Date/Time: 08/01/2018 17:08:13 Reading Location: [facility] Radiology Reading Room U/S, [id number] 17:03:00Laterality?->RightReason for exam:->large pleural effusionFINAL REPORT HISTORY: Right pleural effusion Following informed written consent, the patient's right posterior chest wall was prepped and draped in the usual sterile manner. 2% lidocaine was given locally for anesthesia. No conscious sedation was administered. Vital signs were monitored and remained stable. Using ultrasound guidance and a 5 [place] angiocatheter, access was gained to the right [...] MDRjerryort Verified Date/Time: 08/01/2018 17:03:15 Reading Location: [address] Ultrasound Reading Room RAD, CHEST, 1 VIEW, NON [id number] 12:40: 00Reason for exam:->pleural effusion; shortness of [...] MDReport Verified Date/Time: 08/01/2018 12:40:42 Reading Location: [facility] Radiology Reading Room [id number] 11:33:00 Test Item Value Reference Range Comments PARTIAL THROMBOPLASTIN TIME (BEAKER) (test 118.1 seconds 22.5-36.0 fapz=813) BASIC METABOLIC [id number] 02:07:00 Test Item Value Reference Range Comments SODIUM (BEAKER) (test 137 meq/L 136-145 nznt=109) POTASSIUM (BEAKER) (test 4.4 meq/L 3.5-5.1 Specimen slightly kzwf=102) hemolyzed CHLORIDE (BEAKER) (test 100 meq/L 98-107 dkmi=397) CO2 (BEAKER) (test 27 meq/L 22-29 wvml=192) BLOOD UREA NITROGEN 26 mg/dL 7-21 (BEAKER) (test biqx=149) CREATININE (BEAKER) (test 4.73 mg/dL 0.57-1.25 Specimen slightly ccmf=620) hemolyzed GLUCOSE RANDOM (BEAKER) 81 mg/dL 70-105 (test xjty=956) CALCIUM (BEAKER) (test 8.9 mg/dL 8.4-10.2 akcx=327) EGFR (BEAKER) (test 15 mL/min/1.73 sq m ESTIMATED GFR IS NOT mbng=4631) ACCURATE CREATININE CLEARANCE IN PREDICTING GLOMERULAR FILTRATION RATE. ESTIMATED GFR IS NOT APPLICABLE FOR DIALYSIS PATIENTS. [id number] 01:55:00 Test Item Value Reference Range Comments PROTIME (BEAKER) (test fdmd=328) 19.5 seconds 11.7-14.7 INR (BEAKER) (test yazc=160) 1.7 <=5.9 PARTIAL THROMBOPLASTIN TIME (BEAKER) (test 96.8 seconds 22.5-36.0 qwun=237) RECOMMENDED COUMADIN/WARFARIN INR THERAPY RANGESSTANDARD DOSE: 2.0 - 3.0 Includes: PROPHYLAXIS forvenous thrombosis, systemic embolization; TREATMENT for venous thrombosis and/or pulmonary embolus.HIGH RISK: Target INR is 2.5-3.5 for patients with mechanical heart valves.[id number] 01:55:00 Test Item Value Reference Range Comments PARTIAL THROMBOPLASTIN TIME (BEAKER) (test 96.8 seconds 22.5-36.0 hkbs=244) CBC W/PLT COUNT & AUTO [id number] 01:38:00 Test Item Value Reference Range Comments WHITE BLOOD CELL COUNT (BEAKER) (test mjue=363) 5.5 K/ L 3.5-10.5 RED BLOOD CELL COUNT (BEAKER) (test sjtp=461) 3.37 M/ L 4.63-6.08 HEMOGLOBIN (BEAKER) (test tnkt=865) 11.2 GM/DL 13.7-17.5 HEMATOCRIT (BEAKER) (test wmbl=455) 33.6 % 40.1-51.0 MEAN CORPUSCULAR VOLUME (BEAKER) (test ycyb=403) 99.7 fL 79.0-92.2 MEAN CORPUSCULAR HEMOGLOBIN (BEAKER) (test 33.2 pg 25.7-32.2 ghpc=461) MEAN CORPUSCULAR HEMOGLOBIN CONC (BEAKER) (test 33.3 GM/DL 32.3-36.5 decf=365) RED CELL DISTRIBUTION WIDTH (BEAKER) (test 14.7 % 11.6-14.4 yhsq=798) PLATELET COUNT (BEAKER) (test uagw=889) 113 K/CU MM 150-450 MEAN PLATELET VOLUME (BEAKER) (test qnyi=962) 9.8 fL 9.4-12.4 NUCLEATED RED BLOOD CELLS (BEAKER) (test 0 /100 WBC 0-0 fovd=512) NEUTROPHILS RELATIVE PERCENT (BEAKER) (test 64 % hpkr=913) LYMPHOCYTES RELATIVE PERCENT (BEAKER) (test 18 % zigz=620) MONOCYTES RELATIVE PERCENT (BEAKER) (test 15 % eppm=166) EOSINOPHILS RELATIVE PERCENT (BEAKER) (test 2 % xevs=896) BASOPHILS RELATIVE PERCENT (BEAKER) (test 1 % reda=418) NEUTROPHILS ABSOLUTE COUNT (BEAKER) (test 3.50 K/ L 1.78-5.38 hcpw=160) LYMPHOCYTES ABSOLUTE COUNT (BEAKER) (test 0.97 K/ L 1.32-3.57 wsxf=009) MONOCYTES ABSOLUTE COUNT (BEAKER) (test 0.82 K/ L 0.30-0.82 laiw=214) EOSINOPHILS ABSOLUTE COUNT (BEAKER) (test 0.11 K/ L 0.04-0.54 ghud=422) BASOPHILS ABSOLUTE COUNT (BEAKER) (test 0.04 K/ L 0.01-0.08 hqkn=849) IMMATURE GRANULOCYTES-RELATIVE PERCENT (BEAKER) 0 % 0-1 (test augd=9731) [id number] 18:58:00 Test Item Value Reference Range Comments PARTIAL THROMBOPLASTIN TIME (BEAKER) (test 61.7 seconds 22.5-36.0 dsvw=722) [id number] 09:22:00 Test Item Value Reference Range Comments PARTIAL THROMBOPLASTIN TIME (BEAKER) (test 61.5 seconds 22.5-36.0 ttqv=849) BASIC METABOLIC [id number] 02:14:00 Test Item Value Reference Range Comments SODIUM (BEAKER) (test 130 meq/L 136-145 ykau=264) POTASSIUM (BEAKER) (test 4.1 meq/L 3.5-5.1 ykno=246) CHLORIDE (BEAKER) (test 93 meq/L 98-107 uvrg=359) CO2 (BEAKER) (test 24 meq/L 22-29 jlzl=794) BLOOD UREA NITROGEN 39 mg/dL 7-21 (BEAKER) (test ksjg=139) CREATININE (BEAKER) (test 6.56 mg/dL 0.57-1.25 yhbp=655) GLUCOSE RANDOM (BEAKER) 84 mg/dL 70-105 (test eoem=527) CALCIUM (BEAKER) (test 8.5 mg/dL 8.4-10.2 molh=499) EGFR (BEAKER) (test 11 mL/min/1.73 sq m ESTIMATED GFR IS NOT ezpt=7617) ACCURATE CREATININE CLEARANCE IN PREDICTING GLOMERULAR FILTRATION RATE. ESTIMATED GFR IS NOT APPLICABLE FOR DIALYSIS PATIENTS. [id number] 01:43:00 Test Item Value Reference Range Comments PROTIME (BEAKER) (test rtsf=668) 21.8 seconds 11.7-14.7 INR (BEAKER) (test jnod=521) 1.9 <=5.9 PARTIAL THROMBOPLASTIN TIME (BEAKER) (test 62.7 seconds 22.5-36.0 rjjg=916) RECOMMENDED COUMADIN/WARFARIN INR THERAPY RANGESSTANDARD DOSE: 2.0 - 3.0 Includes: PROPHYLAXIS forvenous thrombosis, systemic embolization; TREATMENT for venous thrombosis and/or pulmonary embolus.HIGH RISK: Target INR is 2.5-3.5 for patients with mechanical heart valves.[id number] 01:43:00 Test Item Value Reference Range Comments PARTIAL THROMBOPLASTIN TIME (BEAKER) (test 62.7 seconds 22.5-36.0 fpit=569) CBC W/PLT COUNT & AUTO [id number] 01:32:00 Test Item Value Reference Range Comments WHITE BLOOD CELL COUNT (BEAKER) (test ceaa=931) 5.9 K/ L 3.5-10.5 RED BLOOD CELL COUNT (BEAKER) (test frrg=498) 3.41 M/ L 4.63-6.08 HEMOGLOBIN (BEAKER) (test dolk=855) 11.1 GM/DL 13.7-17.5 HEMATOCRIT (BEAKER) (test eecl=578) 33.7 % 40.1-51.0 MEAN CORPUSCULAR VOLUME (BEAKER) (test tcyq=946) 98.8 fL 79.0-92.2 MEAN CORPUSCULAR HEMOGLOBIN (BEAKER) (test 32.6 pg 25.7-32.2 kteg=405) MEAN CORPUSCULAR HEMOGLOBIN CONC (BEAKER) (test 32.9 GM/DL 32.3-36.5 kyoi=082) RED CELL DISTRIBUTION WIDTH (BEAKER) (test 14.7 % 11.6-14.4 jbrr=516) PLATELET COUNT (BEAKER) (test dqyj=667) 132 K/CU MM 150-450 MEAN PLATELET VOLUME (BEAKER) (test liqa=081) 10.0 fL 9.4-12.4 NUCLEATED RED BLOOD CELLS (BEAKER) (test 0 /100 WBC 0-0 pivp=277) NEUTROPHILS RELATIVE PERCENT (BEAKER) (test 64 % fkea=785) LYMPHOCYTES RELATIVE PERCENT (BEAKER) (test 19 % fhcb=829) MONOCYTES RELATIVE PERCENT (BEAKER) (test 14 % eqbp=812) EOSINOPHILS RELATIVE PERCENT (BEAKER) (test 2 % vjli=324) BASOPHILS RELATIVE PERCENT (BEAKER) (test 1 % pfxq=028) NEUTROPHILS ABSOLUTE COUNT (BEAKER) (test 3.80 K/ L 1.78-5.38 soor=355) LYMPHOCYTES ABSOLUTE COUNT (BEAKER) (test 1.14 K/ L 1.32-3.57 lebt=500) MONOCYTES ABSOLUTE COUNT (BEAKER) (test 0.80 K/ L 0.30-0.82 tmkx=718) EOSINOPHILS ABSOLUTE COUNT (BEAKER) (test 0.13 K/ L 0.04-0.54 edup=843) BASOPHILS ABSOLUTE COUNT (BEAKER) (test 0.05 K/ L 0.01-0.08 bsuw=740) IMMATURE GRANULOCYTES-RELATIVE PERCENT (BEAKER) 0 % 0-1 (test wbph=7079) [id number] 18:38:00 Test Item Value Reference Range Comments PARTIAL THROMBOPLASTIN TIME (BEAKER) (test 38.9 seconds 22.5-36.0 bnac=533) Prior to initiating heparinPLATELET [id number] 18:17:00 Test Item Value Reference Range Comments PLATELET COUNT (BEAKER) (test mdgw=206) 115 K/CU MM 150-450 RAD, CHEST, 2 [id number] 18:05:00Reason for exam:->sob and pleural effusionFINAL REPORT [...] Bonny Sykeseport Verified Date/Time: 07/30/2018 18:05:46Reading Location: [facility] [id number] Consult Reading Room 06: 05 PMBASI METABOLIC [id number] 05:26:00 Test Item Value Reference Range Comments SODIUM (BEAKER) (test 137 meq/L 136-145 biee=148) POTASSIUM (BEAKER) (test 3.9 meq/L 3.5-5.1 pwfk=434) CHLORIDE (BEAKER) (test 99 meq/L 98-107 mvre=448) CO2 (BEAKER) (test 29 meq/L 22-29 rkoe=117) BLOOD UREA NITROGEN 27 mg/dL 7-21 (BEAKER) (test bnzt=322) CREATININE (BEAKER) (test 5.10 mg/dL 0.57-1.25 gama=900) GLUCOSE RANDOM (BEAKER) 81 mg/dL 70-105 (test cfia=090) CALCIUM (BEAKER) (test 8.7 mg/dL 8.4-10.2 wdke=921) EGFR (BEAKER) (test 14 mL/min/1.73 sq m ESTIMATED GFR IS NOT jmzb=1977) ACCURATE CREATININE CLEARANCE IN PREDICTING GLOMERULAR FILTRATION RATE. ESTIMATED GFR IS NOT APPLICABLE FOR DIALYSIS PATIENTS. [id number] 05:25:00 Test Item Value Reference Range Comments PROTIME (BEAKER) (test yymn=763) 21.4 seconds 11.7-14.7 INR (BEAKER) (test auqg=164) 1.9 <=5.9 PARTIAL THROMBOPLASTIN TIME (BEAKER) (test 38.6 seconds 22.5-36.0 lvuc=535) RECOMMENDED COUMADIN/WARFARIN INR THERAPY RANGESSTANDARD DOSE: 2.0 - 3.0 Includes: PROPHYLAXIS forvenous thrombosis, systemic embolization; TREATMENT for venous thrombosis and/or pulmonary embolus.HIGH RISK: Target INR is 2.5-3.5 for patients with mechanical heart valves.PROTHROMBIN [id number] 05:24: 00 Test Item Value Reference Range Comments PROTIME (BEAKER) (test irwk=168) 21.4 seconds 11.7-14.7 INR (BEAKER) (test mgkw=839) 1.9 <=5.9 RECOMMENDED COUMADIN/WARFARIN INR THERAPY RANGESSTANDARD DOSE: 2.0 - 3.0 Includes: PROPHYLAXIS forvenous thrombosis, systemic embolization; TREATMENT for venous thrombosis and/or pulmonary embolus.HIGH RISK: Target INR is 2.5-3.5 for patients with mechanical heart valves.CBC W/PLT COUNT & AUTO [id number] 05:12:00 Test Item Value Reference Range Comments WHITE BLOOD CELL COUNT (BEAKER) (test pnbr=922) 4.4 K/ L 3.5-10.5 RED BLOOD CELL COUNT (BEAKER) (test xugz=615) 3.39 M/ L 4.63-6.08 HEMOGLOBIN (BEAKER) (test gsly=269) 10.9 GM/DL 13.7-17.5 HEMATOCRIT (BEAKER) (test ottn=662) 34.4 % 40.1-51.0 MEAN CORPUSCULAR VOLUME (BEAKER) (test hkff=713) 101.5 fL 79.0-92.2 MEAN CORPUSCULAR HEMOGLOBIN (BEAKER) (test 32.2 pg 25.7-32.2 mjzx=276) MEAN CORPUSCULAR HEMOGLOBIN CONC (BEAKER) (test 31.7 GM/DL 32.3-36.5 lhzd=380) RED CELL DISTRIBUTION WIDTH (BEAKER) (test 15.1 % 11.6-14.4 utne=931) PLATELET COUNT (BEAKER) (test outf=674) 98 K/CU MM 150-450 MEAN PLATELET VOLUME (BEAKER) (test bpej=408) 8.8 fL 9.4-12.4 NUCLEATED RED BLOOD CELLS (BEAKER) (test 0 /100 WBC 0-0 htjv=925) NEUTROPHILS RELATIVE PERCENT (BEAKER) (test 58 % kgav=541) LYMPHOCYTES RELATIVE PERCENT (BEAKER) (test 20 % drlf=290) MONOCYTES RELATIVE PERCENT (BEAKER) (test 19 % tlpq=373) EOSINOPHILS RELATIVE PERCENT (BEAKER) (test 2 % jmtn=609) BASOPHILS RELATIVE PERCENT (BEAKER) (test 1 % jzam=286) NEUTROPHILS ABSOLUTE COUNT (BEAKER) (test 2.55 K/ L 1.78-5.38 uwvv=102) LYMPHOCYTES ABSOLUTE COUNT (BEAKER) (test 0.87 K/ L 1.32-3.57 gbfc=255) MONOCYTES ABSOLUTE COUNT (BEAKER) (test agga=110) 0.82 K/ L 0.30-0.82 EOSINOPHILS ABSOLUTE COUNT (BEAKER) (test 0.10 K/ L 0.04-0.54 ohcr=001) BASOPHILS ABSOLUTE COUNT (BEAKER) (test iswv=711) 0.03 K/ L 0.01-0.08 IMMATURE GRANULOCYTES-RELATIVE PERCENT (BEAKER) 1 % 0-1 (test zwuv=1952) HEPATITIS B SURFACE [id number] 12:09:00 Test Item Value Reference Range Comments HEPATITIS B SURFACE ANTIGEN (2) (BEAKER) (test Nonreactive Nonreactive bhtx=5003) POCT-GLUCOSE [id number] 07:50:00 Test Item Value Reference Range Comments POC-GLUCOSE METER (BEAKER) 93 mg/dL 70-110 TESTED AT [address] (test trkw=1026) [facility] [id number] 04:59:00 Test Item Value Reference Range Comments PROTIME (BEAKER) (test drhj=410) 20.8 seconds 11.7-14.7 INR (BEAKER) (test htss=832) 1.8 <=5.9 PARTIAL THROMBOPLASTIN TIME (BEAKER) (test 46.4 seconds 22.5-36.0 niig=320) RECOMMENDED COUMADIN/WARFARIN INR THERAPY RANGESSTANDARD DOSE: 2.0 - 3.0 Includes: PROPHYLAXIS forvenous thrombosis, systemic embolization; TREATMENT for venous thrombosis and/or pulmonary embolus.HIGH RISK: Target INR is 2.5-3.5 for patients with mechanical heart valves.BASIC METABOLIC [id number] 04:59: 00 Test Item Value Reference Range Comments SODIUM (BEAKER) (test 137 meq/L 136-145 qnzn=859) POTASSIUM (BEAKER) (test 3.4 meq/L 3.5-5.1 fzkm=431) CHLORIDE (BEAKER) (test 96 meq/L 98-107 brus=704) CO2 (BEAKER) (test 28 meq/L 22-29 rnhx=271) BLOOD UREA NITROGEN 44 mg/dL 7-21 (BEAKER) (test actb=772) CREATININE (BEAKER) (test 7.25 mg/dL 0.57-1.25 ldgg=727) GLUCOSE RANDOM (BEAKER) 98 mg/dL 70-105 (test nobz=053) CALCIUM (BEAKER) (test 8.8 mg/dL 8.4-10.2 jghz=858) EGFR (BEAKER) (test 9 mL/min/1.73 sq m ESTIMATED GFR IS NOT jxnn=8250) ACCURATE CREATININE CLEARANCE IN PREDICTING GLOMERULAR FILTRATION RATE. ESTIMATED GFR IS NOT APPLICABLE FOR DIALYSIS PATIENTS. CBC W/PLT COUNT & AUTO [id number] 04:51:00 Test Item Value Reference Range Comments WHITE BLOOD CELL COUNT (BEAKER) (test uoxm=517) 5.1 K/ L 3.5-10.5 RED BLOOD CELL COUNT (BEAKER) (test zfgv=792) 3.27 M/ L 4.63-6.08 HEMOGLOBIN (BEAKER) (test iyjj=621) 10.6 GM/DL 13.7-17.5 HEMATOCRIT (BEAKER) (test qhuz=947) 32.8 % 40.1-51.0 MEAN CORPUSCULAR VOLUME (BEAKER) (test ewor=958) 100.3 fL 79.0-92.2 MEAN CORPUSCULAR HEMOGLOBIN (BEAKER) (test 32.4 pg 25.7-32.2 djun=310) MEAN CORPUSCULAR HEMOGLOBIN CONC (BEAKER) (test 32.3 GM/DL 32.3-36.5 mnul=730) RED CELL DISTRIBUTION WIDTH (BEAKER) (test 14.9 % 11.6-14.4 bqan=032) PLATELET COUNT (BEAKER) (test wxqk=542) 108 K/CU MM 150-450 MEAN PLATELET VOLUME (BEAKER) (test irtv=496) 9.7 fL 9.4-12.4 NUCLEATED RED BLOOD CELLS (BEAKER) (test 0 /100 WBC 0-0 fujw=442) NEUTROPHILS RELATIVE PERCENT (BEAKER) (test 56 % qrim=975) LYMPHOCYTES RELATIVE PERCENT (BEAKER) (test 24 % hnel=588) MONOCYTES RELATIVE PERCENT (BEAKER) (test 17 % eddk=965) EOSINOPHILS RELATIVE PERCENT (BEAKER) (test 2 % xcui=615) BASOPHILS RELATIVE PERCENT (BEAKER) (test 1 % psia=470) NEUTROPHILS ABSOLUTE COUNT (BEAKER) (test 2.86 K/ L 1.78-5.38 zqit=291) LYMPHOCYTES ABSOLUTE COUNT (BEAKER) (test 1.21 K/ L 1.32-3.57 xttu=981) MONOCYTES ABSOLUTE COUNT (BEAKER) (test 0.87 K/ L 0.30-0.82 mjix=200) EOSINOPHILS ABSOLUTE COUNT (BEAKER) (test 0.12 K/ L 0.04-0.54 wcsw=898) BASOPHILS ABSOLUTE COUNT (BEAKER) (test 0.05 K/ L 0.01-0.08 yzqy=522) IMMATURE GRANULOCYTES-RELATIVE PERCENT (BEAKER) 0 % 0-1 (test mlvm=6560) AFB CULTURE + [id number] 16:13:00 Test Item Value Reference Range Comments CULTURE (BEAKER) (test No acid-fast bacilli isolated fhbm=9746) in 42 days AFB SMEAR (BEAKER) (test No acid fast bacilli seen cwsb=872) AFB CULTURE + [id number] 16:13:00 Test Item Value Reference Range Comments CULTURE (BEAKER) (test No acid-fast bacilli isolated wkaj=5881) in 42 days AFB SMEAR (BEAKER) (test No acid fast bacilli seen gggn=808) FUNGUS CULTURE + [id number] 07:13:00 Test Item Value Reference Range Comments CULTURE (BEAKER) (test No fungus isolated in 28 days yswb=5327) FUNGUS SMEAR (BEAKER) (test No fungi seen epdx=6980) FUNGUS CULTURE + [id number] 07:13:00 Test Item Value Reference Range Comments CULTURE (BEAKER) (test No fungus isolated in 28 days hecx=8368) FUNGUS SMEAR (BEAKER) (test No fungi seen xgba=4169) TISSUE [id number] 19:17:00Surgical Pathology Report Case: [id number] Authorizing Provider: Juliana Martinez MD Collected: 05/23/201825 Ordering Location: [facility] Received: 05/23/2018 0923 SERVICES Pathologist: Brigida Parks MD Specimen: SoftTissue, Other, LEFT GROIN - TISSUE BIOPSY SKIN AND SOFT TISSUE,GROIN,LEFT, BIOPSY: - ABSCESSES, GRANULOMAS AND CHRONIC INFLAMMATION - NEGATIVE FOR DYSPLASIA OR MALIGNANCY - AFB AND GMS STAINS ARE NEGATIVE (SEE COMMENT) Signing Pathologist Direct Phone Line: [phone] signed by Brigida Parks MD on 06/02/2018 at 7:17 PMCorrelation with culture studies is recommended.[id number] abscess groinLeft groin tissue biopsyReceived fresh labeled "soft tissue, other ", description "left groin tissue biopsy" are two dark-porter, wrinkled,hair- bearing strips of skin measuring 1.5 and 2.6 cm in length, 0.3 cm in diameter and excised to a depth of 0.3 cm.Sectioning reveals no discrete masses.The specimen is entirely submitted in cassettesA1. DB/ewPOCT-GLUCOSE [id number] 08:51:00 Test Item Value Reference Range Comments POC-GLUCOSE METER (BEAKER) 101 mg/dL 70-110 TESTED AT [facility] [address] [facility] (test dbqn=7661) [facility] [address] CBC W/PLT COUNT & AUTO [id number] 06:01:00 Test Item Value Reference Range Comments WHITE BLOOD CELL COUNT (BEAKER) (test ewmx=914) 7.1 K/ L 3.5-10.5 RED BLOOD CELL COUNT (BEAKER) (test sdhc=261) 3.50 M/ L 4.63-6.08 HEMOGLOBIN (BEAKER) (test wpuc=788) 10.7 GM/DL 13.7-17.5 HEMATOCRIT (BEAKER) (test xlzd=969) 33.4 % 40.1-51.0 MEAN CORPUSCULAR VOLUME (BEAKER) (test utgn=736) 95.4 fL 79.0-92.2 MEAN CORPUSCULAR HEMOGLOBIN (BEAKER) (test 30.6 pg 25.7-32.2 asco=466) MEAN CORPUSCULAR HEMOGLOBIN CONC (BEAKER) (test 32.0 GM/DL 32.3-36.5 ljeo=610) RED CELL DISTRIBUTION WIDTH (BEAKER) (test 17.5 % 11.6-14.4 cnxi=965) PLATELET COUNT (BEAKER) (test rvmo=196) 159 K/CU MM 150-450 MEAN PLATELET VOLUME (BEAKER) (test czjk=796) 9.8 fL 9.4-12.4 NUCLEATED RED BLOOD CELLS (BEAKER) (test 1 /100 WBC 0-0 negn=814) NEUTROPHILS RELATIVE PERCENT (BEAKER) (test 66 % zrrr=992) LYMPHOCYTES RELATIVE PERCENT (BEAKER) (test 20 % cxts=032) MONOCYTES RELATIVE PERCENT (BEAKER) (test 11 % myby=880) EOSINOPHILS RELATIVE PERCENT (BEAKER) (test 1 % clmh=350) BASOPHILS RELATIVE PERCENT (BEAKER) (test 1 % mekx=435) NEUTROPHILS ABSOLUTE COUNT (BEAKER) (test 4.70 K/ L 1.78-5.38 jltg=181) LYMPHOCYTES ABSOLUTE COUNT (BEAKER) (test 1.39 K/ L 1.32-3.57 khle=881) MONOCYTES ABSOLUTE COUNT (BEAKER) (test 0.78 K/ L 0.30-0.82 xqkn=527) EOSINOPHILS ABSOLUTE COUNT (BEAKER) (test 0.10 K/ L 0.04-0.54 ywai=375) BASOPHILS ABSOLUTE COUNT (BEAKER) (test 0.08 K/ L 0.01-0.08 aluy=728) IMMATURE GRANULOCYTES-RELATIVE PERCENT (BEAKER) 1 % 0-1 (test paat=9339) PROTHROMBIN [id number] 05:51:00 Test Item Value Reference Range Comments PROTIME (BEAKER) (test mvul=444) 25.9 seconds 11.7-14.7 INR (BEAKER) (test rqyv=560) 2.4 <=5.9 RECOMMENDED COUMADIN/WARFARIN INR THERAPY RANGESSTANDARD DOSE: 2.0 - 3.0 Includes: PROPHYLAXIS forvenous thrombosis, systemic embolization; TREATMENT for venous thrombosis and/or pulmonary embolus.HIGH RISK: Target INR is 2.5-3.5 for patients with mechanical heart valves.BASIC METABOLIC [id number] 05:46: 00 Test Item Value Reference Range Comments SODIUM (BEAKER) (test 134 meq/L 136-145 mhjn=626) POTASSIUM (BEAKER) (test 4.1 meq/L 3.5-5.1 ptbt=000) CHLORIDE (BEAKER) (test 98 meq/L 98-107 xdzp=544) CO2 (BEAKER) (test 27 meq/L 22-29 pvyn=763) BLOOD UREA NITROGEN 28 mg/dL 7-21 (BEAKER) (test fqwe=079) CREATININE (BEAKER) (test 5.07 mg/dL 0.57-1.25 jmmb=002) GLUCOSE RANDOM (BEAKER) 110 mg/dL 70-105 (test khhy=142) CALCIUM (BEAKER) (test 9.0 mg/dL 8.4-10.2 jngz=584) EGFR (BEAKER) (test 14 mL/min/1.73 sq m ESTIMATED GFR IS NOT woey=1638) ACCURATE CREATININE CLEARANCE IN PREDICTING GLOMERULAR FILTRATION RATE. ESTIMATED GFR IS NOT APPLICABLE FOR DIALYSIS PATIENTS. POCT-GLUCOSE [id number] 20:34:00 Test Item Value Reference Range Comments POC-GLUCOSE METER (BEAKER) 261 mg/dL 70-110 TESTED AT [address] (test bhbc=6682) [place] [id number] POCT-GLUCOSE [id number] 18:12:00 Test Item Value Reference Range Comments POC-GLUCOSE METER (BEAKER) 139 mg/dL 70-110 TESTED AT [address] (test gixn=8354) [place] [id number] POCT-GLUCOSE [id number] 11:51:00 Test Item Value Reference Range Comments POC-GLUCOSE METER (BEAKER) 147 mg/dL 70-110 TESTED AT [address] (test onbr=7918) [place] [id number] POCT-GLUCOSE [id number] 08:42:00 Test Item Value Reference Range Comments POC-GLUCOSE METER (BEAKER) 104 mg/dL 70-110 TESTED AT [address] (test eoql=4557) [place] [id number] CBC W/PLT COUNT & AUTO [id number] 06:56:00 Test Item Value Reference Range Comments WHITE BLOOD CELL COUNT (BEAKER) (test wqjv=279) 8.0 K/ L 3.5-10.5 RED BLOOD CELL COUNT (BEAKER) (test uzin=354) 3.40 M/ L 4.63-6.08 HEMOGLOBIN (BEAKER) (test jdws=957) 10.2 GM/DL 13.7-17.5 HEMATOCRIT (BEAKER) (test wmwe=202) 32.0 % 40.1-51.0 MEAN CORPUSCULAR VOLUME (BEAKER) (test vtqk=626) 94.1 fL 79.0-92.2 MEAN CORPUSCULAR HEMOGLOBIN (BEAKER) (test 30.0 pg 25.7-32.2 vrvu=591) MEAN CORPUSCULAR HEMOGLOBIN CONC (BEAKER) (test 31.9 GM/DL 32.3-36.5 ntvg=397) RED CELL DISTRIBUTION WIDTH (BEAKER) (test 17.1 % 11.6-14.4 ubit=899) PLATELET COUNT (BEAKER) (test ogtx=062) 167 K/CU MM 150-450 MEAN PLATELET VOLUME (BEAKER) (test ubne=356) 9.3 fL 9.4-12.4 NUCLEATED RED BLOOD CELLS (BEAKER) (test 1 /100 WBC 0-0 evnd=705) NEUTROPHILS RELATIVE PERCENT (BEAKER) (test 69 % dsxc=980) LYMPHOCYTES RELATIVE PERCENT (BEAKER) (test 17 % bezu=826) MONOCYTES RELATIVE PERCENT (BEAKER) (test 11 % aknq=799) EOSINOPHILS RELATIVE PERCENT (BEAKER) (test 2 % bfjq=124) BASOPHILS RELATIVE PERCENT (BEAKER) (test 1 % ukpb=246) NEUTROPHILS ABSOLUTE COUNT (BEAKER) (test 5.54 K/ L 1.78-5.38 cxsn=133) LYMPHOCYTES ABSOLUTE COUNT (BEAKER) (test 1.33 K/ L 1.32-3.57 uaqx=487) MONOCYTES ABSOLUTE COUNT (BEAKER) (test 0.87 K/ L 0.30-0.82 fwyg=449) EOSINOPHILS ABSOLUTE COUNT (BEAKER) (test 0.12 K/ L 0.04-0.54 lmna=576) BASOPHILS ABSOLUTE COUNT (BEAKER) (test 0.06 K/ L 0.01-0.08 hquk=301) IMMATURE GRANULOCYTES-RELATIVE PERCENT (BEAKER) 1 % 0-1 (test hzoz=7369) BASIC METABOLIC [id number] 06:49:00 Test Item Value Reference Range Comments SODIUM (BEAKER) (test 130 meq/L 136-145 hzhv=709) POTASSIUM (BEAKER) (test 4.3 meq/L 3.5-5.1 inrx=080) CHLORIDE (BEAKER) (test 93 meq/L 98-107 gflh=640) CO2 (BEAKER) (test 25 meq/L 22-29 awbw=255) BLOOD UREA NITROGEN 41 mg/dL 7-21 (BEAKER) (test tilh=738) CREATININE (BEAKER) (test 6.65 mg/dL 0.57-1.25 zlwj=741) GLUCOSE RANDOM (BEAKER) 113 mg/dL 70-105 (test tbbo=068) CALCIUM (BEAKER) (test 8.9 mg/dL 8.4-10.2 adqj=706) EGFR (BEAKER) (test 10 mL/min/1.73 sq m ESTIMATED GFR IS NOT anqd=6891) ACCURATE CREATININE CLEARANCE IN PREDICTING GLOMERULAR FILTRATION RATE. ESTIMATED GFR IS NOT APPLICABLE FOR DIALYSIS PATIENTS. PROTHROMBIN [id number] 06:46:00 Test Item Value Reference Range Comments PROTIME (BEAKER) (test ozac=255) 26.9 seconds 11.7-14.7 INR (BEAKER) (test ambd=581) 2.5 <=5.9 RECOMMENDED COUMADIN/WARFARIN INR THERAPY RANGESSTANDARD DOSE: 2.0 - 3.0 Includes: PROPHYLAXIS forvenous thrombosis, systemic embolization; TREATMENT for venous thrombosis and/or pulmonary embolus.HIGH RISK: Target INR is 2.5-3.5 for patients with mechanical heart valves.ANAEROBIC [id number] 00:38:00 Test Item Value Reference Range Comments CULTURE (BEAKER) (test yyad=6342) No anaerobes isolated ANAEROBIC [id number] 00:38:00 Test Item Value Reference Range Comments CULTURE (BEAKER) (test fbwo=8859) No anaerobes isolated POCT-GLUCOSE [id number] 20:43:00 Test Item Value Reference Range Comments POC-GLUCOSE METER (BEAKER) 124 mg/dL 70-110 TESTED AT [address] (test wxfy=4883) [facility] [address] POCT-GLUCOSE [id number] 17:17:00 Test Item Value Reference Range Comments POC-GLUCOSE METER (BEAKER) 190 mg/dL 70-110 TESTED AT [address] (test ntai=3996) [facility] [address] POCT-GLUCOSE [id number] 11:54:00 Test Item Value Reference Range Comments POC-GLUCOSE METER (BEAKER) 195 mg/dL 70-110 TESTED AT [address] (test sjoq=5383) [facility] [address] C. DIFFICILE GDH [id number] 11:16:00 Test Item Value Reference Range Comments CDT TOXIN (test Negative Negative vilt=[id number]) CDT GDH ANTIGEN (test Negative Negative No indication of Clostridium gfep=[id number]) difficile infection and no colonization. Discontinue enteric isolation and therapy. Testing performed by [employer] Rapid Cassette Assay. For GDH, published sensitivity of the assay is 98.7% compared to cytotoxicity testing. For Toxin AB, published sensitivity is 87.8% and specificity 99.4% compared to cytotoxicity testing.Verification of kit performance was done by the [facility] Microbiology Lab prior to clinical use.SURGICALLY OBTAINED CULTURE + GRAM [id number] 09:22:00 Test Item Value Reference Range Comments CULTURE (BEAKER) (test COAGULASE NEGATIVE <1+ Coagulase negative bzgw=6198) STAPHYLOCOCCUS Staphylococcus Clindamycin (test code=10) Erythromycin (test code=4) Linezolid (test code=40) Nitrofurantoin (test code=23) Oxacillin (test code=14) Rifampin (test code=43) Tetracycline (test code=2) Trimethoprim + Sulfamethoxazole (test code=47) Vancomycin (test code=13) GRAM STAIN RESULT 1+ WBCs (BEAKER) (test isrs=5320) GRAM STAIN RESULT No organisms seen (BEAKER) (test tqix=452348) SURGICALLY OBTAINED CULTURE + GRAM [id number] 09:20:00 Test Item Value Reference Range Comments CULTURE (BEAKER) (test gxfz=4024) No growth GRAM STAIN RESULT (BEAKER) (test 4+ WBCs fhvw=9806) GRAM STAIN RESULT (BEAKER) (test No organisms seen gxdo=33072) POCT-GLUCOSE [id number] 08:21:00 Test Item Value Reference Range Comments POC-GLUCOSE METER (BEAKER) 101 mg/dL 70-110 TESTED AT [facility] [address] [facility] (test bhzu=0698) [facility] [address] BASIC METABOLIC [id number] 07:57:00 Test Item Value Reference Range Comments SODIUM (BEAKER) (test 135 meq/L 136-145 yjmt=309) POTASSIUM (BEAKER) (test 3.9 meq/L 3.5-5.1 jooh=578) CHLORIDE (BEAKER) (test 96 meq/L 98-107 kgps=712) CO2 (BEAKER) (test 26 meq/L 22-29 dakf=923) BLOOD UREA NITROGEN 29 mg/dL 7-21 (BEAKER) (test fcpm=973) CREATININE (BEAKER) (test 5.49 mg/dL 0.57-1.25 lvfn=158) GLUCOSE RANDOM (BEAKER) 100 mg/dL 70-105 (test ahmn=276) CALCIUM (BEAKER) (test 9.1 mg/dL 8.4-10.2 evix=032) EGFR (BEAKER) (test 13 mL/min/1.73 sq m ESTIMATED GFR IS NOT zowk=9054) ACCURATE CREATININE CLEARANCE IN PREDICTING GLOMERULAR FILTRATION RATE. ESTIMATED GFR IS NOT APPLICABLE FOR DIALYSIS PATIENTS. PROTHROMBIN [id number] 06:36:00 Test Item Value Reference Range Comments PROTIME (BEAKER) (test bnys=419) 25.3 seconds 11.7-14.7 INR (BEAKER) (test siqp=468) 2.3 <=5.9 RECOMMENDED COUMADIN/WARFARIN INR THERAPY RANGESSTANDARD DOSE: 2.0 - 3.0 Includes: PROPHYLAXIS forvenous thrombosis, systemic embolization; TREATMENT for venous thrombosis and/or pulmonary embolus.HIGH RISK: Target INR is 2.5-3.5 for patients with mechanical heart valves.CBC W/PLT COUNT & AUTO [id number] 06:27:00 Test Item Value Reference Range Comments WHITE BLOOD CELL COUNT (BEAKER) (test jegz=117) 7.3 K/ L 3.5-10.5 RED BLOOD CELL COUNT (BEAKER) (test zdbr=924) 3.29 M/ L 4.63-6.08 HEMOGLOBIN (BEAKER) (test qsdl=228) 9.8 GM/DL 13.7-17.5 HEMATOCRIT (BEAKER) (test loez=571) 30.9 % 40.1-51.0 MEAN CORPUSCULAR VOLUME (BEAKER) (test zkjh=301) 93.9 fL 79.0-92.2 MEAN CORPUSCULAR HEMOGLOBIN (BEAKER) (test 29.8 pg 25.7-32.2 gcov=209) MEAN CORPUSCULAR HEMOGLOBIN CONC (BEAKER) (test 31.7 GM/DL 32.3-36.5 gimq=570) RED CELL DISTRIBUTION WIDTH (BEAKER) (test 16.9 % 11.6-14.4 ybyk=103) PLATELET COUNT (BEAKER) (test cdtw=010) 153 K/CU MM 150-450 MEAN PLATELET VOLUME (BEAKER) (test miue=850) 9.1 fL 9.4-12.4 NUCLEATED RED BLOOD CELLS (BEAKER) (test 0 /100 WBC 0-0 lezn=073) NEUTROPHILS RELATIVE PERCENT (BEAKER) (test 66 % zjxm=228) LYMPHOCYTES RELATIVE PERCENT (BEAKER) (test 16 % eaxm=683) MONOCYTES RELATIVE PERCENT (BEAKER) (test 15 % yknu=338) EOSINOPHILS RELATIVE PERCENT (BEAKER) (test 2 % nnfm=735) BASOPHILS RELATIVE PERCENT (BEAKER) (test 1 % zoya=083) NEUTROPHILS ABSOLUTE COUNT (BEAKER) (test 4.75 K/ L 1.78-5.38 gnzn=173) LYMPHOCYTES ABSOLUTE COUNT (BEAKER) (test 1.14 K/ L 1.32-3.57 hpzk=674) MONOCYTES ABSOLUTE COUNT (BEAKER) (test 1.05 K/ L 0.30-0.82 lzmz=785) EOSINOPHILS ABSOLUTE COUNT (BEAKER) (test 0.13 K/ L 0.04-0.54 erlz=865) BASOPHILS ABSOLUTE COUNT (BEAKER) (test 0.07 K/ L 0.01-0.08 eplg=129) IMMATURE GRANULOCYTES-RELATIVE PERCENT (BEAKER) 2 % 0-1 (test flsv=9171) POCT-GLUCOSE [id number] 21:40:00 Test Item Value Reference Range Comments POC-GLUCOSE METER (BEAKER) 176 mg/dL 70-110 TESTED AT [address] (test qwar=3138) [place] [address] POCT-GLUCOSE [id number] 16:07:00 Test Item Value Reference Range Comments POC-GLUCOSE METER (BEAKER) 120 mg/dL 70-110 TESTED AT [address] (test ejii=3044) [place] [address] POCT-GLUCOSE [id number] 08:31:00 Test Item Value Reference Range Comments POC-GLUCOSE METER (BEAKER) 119 mg/dL 70-110 TESTED AT [address] (test gmkb=2954) [place] [address] BASIC METABOLIC [id number] 08:19:00 Test Item Value Reference Range Comments SODIUM (BEAKER) (test 133 meq/L 136-145 wvzf=333) POTASSIUM (BEAKER) (test 3.8 meq/L 3.5-5.1 rpks=200) CHLORIDE (BEAKER) (test 97 meq/L 98-107 lcpe=773) CO2 (BEAKER) (test 26 meq/L 22-29 otrd=862) BLOOD UREA NITROGEN 19 mg/dL 7-21 (BEAKER) (test qyiw=055) CREATININE (BEAKER) (test 4.05 mg/dL 0.57-1.25 opup=089) GLUCOSE RANDOM (BEAKER) 107 mg/dL 70-105 (test pxsm=460) CALCIUM (BEAKER) (test 9.0 mg/dL 8.4-10.2 dyhl=525) EGFR (BEAKER) (test 18 mL/min/1.73 sq m ESTIMATED GFR IS NOT tixu=7114) ACCURATE CREATININE CLEARANCE IN PREDICTING GLOMERULAR FILTRATION RATE. ESTIMATED GFR IS NOT APPLICABLE FOR DIALYSIS PATIENTS. VANCOMYCIN LEVEL, [id number] 08:16:00 Test Item Value Reference Range Comments VANCOMYCIN RANDOM (BEAKER) (test lwil=286) 17.6 ug/mL Reference Range: No NormalsPROTHROMBIN [id number] 07:21:00 Test Item Value Reference Range Comments PROTIME (BEAKER) (test ryoj=407) 22.0 seconds 11.7-14.7 INR (BEAKER) (test uadp=159) 1.9 <=5.9 RECOMMENDED COUMADIN/WARFARIN INR THERAPY RANGESSTANDARD DOSE: 2.0 - 3.0 Includes: PROPHYLAXIS forvenous thrombosis, systemic embolization; TREATMENT for venous thrombosis and/or pulmonary embolus.HIGH RISK: Target INR is 2.5-3.5 for patients with mechanical heart valves.CBC W/PLT COUNT & AUTO [id number] 07:02:00 Test Item Value Reference Range Comments WHITE BLOOD CELL COUNT (BEAKER) (test czzc=034) 8.2 K/ L 3.5-10.5 RED BLOOD CELL COUNT (BEAKER) (test qjwn=719) 3.46 M/ L 4.63-6.08 HEMOGLOBIN (BEAKER) (test snkk=188) 10.4 GM/DL 13.7-17.5 HEMATOCRIT (BEAKER) (test iohv=254) 32.8 % 40.1-51.0 MEAN CORPUSCULAR VOLUME (BEAKER) (test fbrv=634) 94.8 fL 79.0-92.2 MEAN CORPUSCULAR HEMOGLOBIN (BEAKER) (test 30.1 pg 25.7-32.2 jvkk=460) MEAN CORPUSCULAR HEMOGLOBIN CONC (BEAKER) (test 31.7 GM/DL 32.3-36.5 dhqa=445) RED CELL DISTRIBUTION WIDTH (BEAKER) (test 16.7 % 11.6-14.4 awfa=522) PLATELET COUNT (BEAKER) (test iwot=942) 167 K/CU MM 150-450 MEAN PLATELET VOLUME (BEAKER) (test ljue=904) 9.7 fL 9.4-12.4 NUCLEATED RED BLOOD CELLS (BEAKER) (test 0 /100 WBC 0-0 jhvi=552) NEUTROPHILS RELATIVE PERCENT (BEAKER) (test 69 % hpdh=781) LYMPHOCYTES RELATIVE PERCENT (BEAKER) (test 13 % anfp=022) MONOCYTES RELATIVE PERCENT (BEAKER) (test 12 % vnhw=770) EOSINOPHILS RELATIVE PERCENT (BEAKER) (test 2 % aloq=333) BASOPHILS RELATIVE PERCENT (BEAKER) (test 1 % qsdr=190) NEUTROPHILS ABSOLUTE COUNT (BEAKER) (test 5.72 K/ L 1.78-5.38 kisk=878) LYMPHOCYTES ABSOLUTE COUNT (BEAKER) (test 1.07 K/ L 1.32-3.57 lztl=478) MONOCYTES ABSOLUTE COUNT (BEAKER) (test 1.02 K/ L 0.30-0.82 nulw=155) EOSINOPHILS ABSOLUTE COUNT (BEAKER) (test 0.18 K/ L 0.04-0.54 ursn=813) BASOPHILS ABSOLUTE COUNT (BEAKER) (test 0.07 K/ L 0.01-0.08 ucji=368) IMMATURE GRANULOCYTES-RELATIVE PERCENT (BEAKER) 2 % 0-1 (test xapy=1524) BLOOD [id number] 06:00:00 Test Item Value Reference Range Comments CULTURE (BEAKER) (test uiql=0817) No growth in 5 days BLOOD [id number] 00:00:00 Test Item Value Reference Range Comments CULTURE (BEAKER) (test tekb=3465) No growth in 5 days POCT-GLUCOSE [id number] 22:05:00 Test Item Value Reference Range Comments POC-GLUCOSE METER (BEAKER) 169 mg/dL 70-110 TESTED AT [address] (test dvtp=2164) [facility] [address] POCT-GLUCOSE [id number] 18:20:00 Test Item Value Reference Range Comments POC-GLUCOSE METER (BEAKER) 110 mg/dL 70-110 TESTED AT [address] (test tixi=2281) [place] [id number] POCT-GLUCOSE [id number] 17:17:00 Test Item Value Reference Range Comments POC-GLUCOSE METER (BEAKER) 99 mg/dL 70-110 TESTED AT [address] (test uinu=5218) [place] [address] SPIN/CONCENTRATION [id number] 14:49:00 Test Item Value Reference Range Comments CONCENTRATION CHARGED (BEAKER) (test srci=1547) Done SPIN/CONCENTRATION [id number] 14:49:00 Test Item Value Reference Range Comments CONCENTRATION CHARGED (BEAKER) (test vdam=9341) Done POCT-GLUCOSE [id number] 12:13:00 Test Item Value Reference Range Comments POC-GLUCOSE METER (BEAKER) 188 mg/dL 70-110 TESTED AT [address] (test cavc=0751) [place] [id number] BASIC METABOLIC [id number] 09:56:00 Test Item Value Reference Range Comments SODIUM (BEAKER) (test 132 meq/L 136-145 xndz=554) POTASSIUM (BEAKER) (test 4.1 meq/L 3.5-5.1 bntg=028) CHLORIDE (BEAKER) (test 96 meq/L 98-107 hoxz=808) CO2 (BEAKER) (test 24 meq/L 22-29 bwcb=814) BLOOD UREA NITROGEN 30 mg/dL 7-21 (BEAKER) (test bypi=440) CREATININE (BEAKER) (test 5.66 mg/dL 0.57-1.25 jmbs=738) GLUCOSE RANDOM (BEAKER) 98 mg/dL 70-105 (test fyau=580) CALCIUM (BEAKER) (test 8.7 mg/dL 8.4-10.2 dsnk=015) EGFR (BEAKER) (test 12 mL/min/1.73 sq m ESTIMATED GFR IS NOT wddn=4278) ACCURATE CREATININE CLEARANCE IN PREDICTING GLOMERULAR FILTRATION RATE. ESTIMATED GFR IS NOT APPLICABLE FOR DIALYSIS PATIENTS. POCT-GLUCOSE [id number] 07:45:00 Test Item Value Reference Range Comments POC-GLUCOSE METER (BEAKER) 108 mg/dL 70-110 TESTED AT [facility] [address] [facility] (test htwb=7947) [facility] [address] CBC W/PLT COUNT & AUTO [id number] 07:00:00 Test Item Value Reference Range Comments WHITE BLOOD CELL COUNT (BEAKER) (test lxoy=400) 11.1 K/ L 3.5-10.5 RED BLOOD CELL COUNT (BEAKER) (test slgx=138) 3.30 M/ L 4.63-6.08 HEMOGLOBIN (BEAKER) (test kzjg=268) 10.0 GM/DL 13.7-17.5 HEMATOCRIT (BEAKER) (test tffb=282) 31.4 % 40.1-51.0 MEAN CORPUSCULAR VOLUME (BEAKER) (test bmbp=539) 95.2 fL 79.0-92.2 MEAN CORPUSCULAR HEMOGLOBIN (BEAKER) (test 30.3 pg 25.7-32.2 iiew=458) MEAN CORPUSCULAR HEMOGLOBIN CONC (BEAKER) (test 31.8 GM/DL 32.3-36.5 drcc=649) RED CELL DISTRIBUTION WIDTH (BEAKER) (test 16.3 % 11.6-14.4 onaa=224) PLATELET COUNT (BEAKER) (test yenx=628) 166 K/CU MM 150-450 MEAN PLATELET VOLUME (BEAKER) (test wtxu=238) 9.4 fL 9.4-12.4 NUCLEATED RED BLOOD CELLS (BEAKER) (test 0 /100 WBC 0-0 bahk=682) NEUTROPHILS RELATIVE PERCENT (BEAKER) (test 72 % dsrj=013) LYMPHOCYTES RELATIVE PERCENT (BEAKER) (test 11 % lbqw=860) MONOCYTES RELATIVE PERCENT (BEAKER) (test 12 % wole=545) EOSINOPHILS RELATIVE PERCENT (BEAKER) (test 2 % wnrm=289) BASOPHILS RELATIVE PERCENT (BEAKER) (test 1 % veiv=921) NEUTROPHILS ABSOLUTE COUNT (BEAKER) (test 7.96 K/ L 1.78-5.38 dpqm=724) LYMPHOCYTES ABSOLUTE COUNT (BEAKER) (test 1.25 K/ L 1.32-3.57 hawy=260) MONOCYTES ABSOLUTE COUNT (BEAKER) (test 1.27 K/ L 0.30-0.82 lghi=124) EOSINOPHILS ABSOLUTE COUNT (BEAKER) (test 0.23 K/ L 0.04-0.54 dzmh=711) BASOPHILS ABSOLUTE COUNT (BEAKER) (test 0.07 K/ L 0.01-0.08 syfz=924) IMMATURE GRANULOCYTES-RELATIVE PERCENT (BEAKER) 3 % 0-1 (test ejmw=1267) PROTHROMBIN [id number] 06:47:00 Test Item Value Reference Range Comments PROTIME (BEAKER) (test thpv=550) 20.7 seconds 11.7-14.7 INR (BEAKER) (test oyus=350) 1.8 <=5.9 RECOMMENDED COUMADIN/WARFARIN INR THERAPY RANGESSTANDARD DOSE: 2.0 - 3.0 Includes: PROPHYLAXIS forvenous thrombosis, systemic embolization; TREATMENT for venous thrombosis and/or pulmonary embolus.HIGH RISK: Target INR is 2.5-3.5 for patients with mechanical heart valves.POCT-GLUCOSE [id number] 20:42:00 Test Item Value Reference Range Comments POC-GLUCOSE METER (BEAKER) 134 mg/dL 70-110 TESTED AT [address] (test fdkj=5410) [place] [address] POCT-GLUCOSE [id number] 13:29:00 Test Item Value Reference Range Comments POC-GLUCOSE METER (BEAKER) 209 mg/dL 70-110 TESTED AT [address] (test wsfs=9251) [place] [address] POCT-GLUCOSE [id number] 08:53:00 Test Item Value Reference Range Comments POC-GLUCOSE METER (BEAKER) 103 mg/dL 70-110 TESTED AT [address] (test gpgr=5327) [place] [address] BASIC METABOLIC [id number] 07:47:00 Test Item Value Reference Range Comments SODIUM (BEAKER) (test 136 meq/L 136-145 qjvu=709) POTASSIUM (BEAKER) (test 4.0 meq/L 3.5-5.1 rxjy=371) CHLORIDE (BEAKER) (test 100 meq/L 98-107 jhhy=857) CO2 (BEAKER) (test 27 meq/L 22-29 bajk=563) BLOOD UREA NITROGEN 22 mg/dL 7-21 (BEAKER) (test nhzm=656) CREATININE (BEAKER) (test 4.63 mg/dL 0.57-1.25 mxhz=727) GLUCOSE RANDOM (BEAKER) 111 mg/dL 70-105 (test wgfx=435) CALCIUM (BEAKER) (test 8.7 mg/dL 8.4-10.2 fuvw=447) EGFR (BEAKER) (test 16 mL/min/1.73 sq m ESTIMATED GFR IS NOT yxzd=6447) ACCURATE CREATININE CLEARANCE IN PREDICTING GLOMERULAR FILTRATION RATE. ESTIMATED GFR IS NOT APPLICABLE FOR DIALYSIS PATIENTS. WOUND CULTURE + GRAM [id number] 07:44:00 Test Item Value Reference Range Comments CULTURE (BEAKER) (test wejs=4623) No growth GRAM STAIN RESULT (BEAKER) (test No WBCs trrd=7675) GRAM STAIN RESULT (BEAKER) (test No organisms seen klec=94974) [id number] 07:38:00 Test Item Value Reference Range Comments PHOSPHORUS (BEAKER) (test sycv=884) 3.2 mg/dL 2.3-4.7 CBC W/PLT COUNT & AUTO [id number] 06:35:00 Test Item Value Reference Range Comments WHITE BLOOD CELL COUNT (BEAKER) (test elwr=109) 11.0 K/ L 3.5-10.5 RED BLOOD CELL COUNT (BEAKER) (test gzhn=578) 3.30 M/ L 4.63-6.08 HEMOGLOBIN (BEAKER) (test bowh=670) 9.9 GM/DL 13.7-17.5 HEMATOCRIT (BEAKER) (test dpbv=057) 31.2 % 40.1-51.0 MEAN CORPUSCULAR VOLUME (BEAKER) (test wers=768) 94.5 fL 79.0-92.2 MEAN CORPUSCULAR HEMOGLOBIN (BEAKER) (test 30.0 pg 25.7-32.2 lbxw=323) MEAN CORPUSCULAR HEMOGLOBIN CONC (BEAKER) (test 31.7 GM/DL 32.3-36.5 vwmb=348) RED CELL DISTRIBUTION WIDTH (BEAKER) (test 16.1 % 11.6-14.4 gnew=394) PLATELET COUNT (BEAKER) (test jpmy=642) 184 K/CU MM 150-450 MEAN PLATELET VOLUME (BEAKER) (test hdkc=270) 9.5 fL 9.4-12.4 NUCLEATED RED BLOOD CELLS (BEAKER) (test 0 /100 WBC 0-0 vcuc=948) NEUTROPHILS RELATIVE PERCENT (BEAKER) (test 79 % mjpi=713) LYMPHOCYTES RELATIVE PERCENT (BEAKER) (test 8 % qngj=427) MONOCYTES RELATIVE PERCENT (BEAKER) (test 8 % dfzi=190) EOSINOPHILS RELATIVE PERCENT (BEAKER) (test 2 % wkad=805) BASOPHILS RELATIVE PERCENT (BEAKER) (test 1 % sewi=985) NEUTROPHILS ABSOLUTE COUNT (BEAKER) (test 8.70 K/ L 1.78-5.38 jsyl=016) LYMPHOCYTES ABSOLUTE COUNT (BEAKER) (test 0.86 K/ L 1.32-3.57 nkwg=756) MONOCYTES ABSOLUTE COUNT (BEAKER) (test 0.91 K/ L 0.30-0.82 yulj=832) EOSINOPHILS ABSOLUTE COUNT (BEAKER) (test 0.24 K/ L 0.04-0.54 akqc=760) BASOPHILS ABSOLUTE COUNT (BEAKER) (test 0.08 K/ L 0.01-0.08 zdsd=845) IMMATURE GRANULOCYTES-RELATIVE PERCENT (BEAKER) 2 % 0-1 (test tbeh=0721) PROTHROMBIN [id number] 06:32:00 Test Item Value Reference Range Comments PROTIME (BEAKER) (test bqno=320) 23.2 seconds 11.7-14.7 INR (BEAKER) (test xgar=248) 2.1 <=5.9 RECOMMENDED COUMADIN/WARFARIN INR THERAPY RANGESSTANDARD DOSE: 2.0 - 3.0 Includes: PROPHYLAXIS forvenous thrombosis, systemic embolization; TREATMENT for venous thrombosis and/or pulmonary embolus.HIGH RISK: Target INR is 2.5-3.5 for patients with mechanical heart valves.POCT-GLUCOSE [id number] 21:21:00 Test Item Value Reference Range Comments POC-GLUCOSE METER (BEAKER) 177 mg/dL 70-110 TESTED AT [address] (test corw=5753) [facility] [address] POCT-GLUCOSE [id number] 17:53:00 Test Item Value Reference Range Comments POC-GLUCOSE METER (BEAKER) 89 mg/dL 70-110 TESTED AT [address] (test guyi=2436) [place] [id number] IRON, TIBC, % SAT. (WITHOUT FERRITIN)[id number] 17:45:00 Test Item Value Reference Range Comments IRON (BEAKER) (test ceoy=131) 63 ug/dL 40-160 TOTAL IRON BINDING CAPACITY (BEAKER) (test 203 ug/dL 250-450 ajkk=907) IRON % SATURATION (2) (BEAKER) (test bubm=2264) 31 % 20-55 [id number] 16:07:00 Test Item Value Reference Range Comments PHOSPHORUS (BEAKER) (test tsbb=684) 5.4 mg/dL 2.3-4.7 POCT-GLUCOSE [id number] 12:41:00 Test Item Value Reference Range Comments POC-GLUCOSE METER (BEAKER) 110 mg/dL 70-110 TESTED AT [address] (test mxpp=4757) [place] [address] POCT-GLUCOSE [id number] 07:00:00 Test Item Value Reference Range Comments POC-GLUCOSE METER (BEAKER) 159 mg/dL 70-110 TESTED AT [address] (test wgru=5517) [place] [id number] BASIC METABOLIC [id number] 05:19:00 Test Item Value Reference Range Comments SODIUM (BEAKER) (test 136 meq/L 136-145 pbkx=677) POTASSIUM (BEAKER) (test 3.6 meq/L 3.5-5.1 hsef=131) CHLORIDE (BEAKER) (test 98 meq/L 98-107 owpk=318) CO2 (BEAKER) (test 26 meq/L 22-29 wmzc=019) BLOOD UREA NITROGEN 33 mg/dL 7-21 (BEAKER) (test tdsn=036) CREATININE (BEAKER) (test 6.38 mg/dL 0.57-1.25 drll=789) GLUCOSE RANDOM (BEAKER) 122 mg/dL 70-105 (test lvlc=628) CALCIUM (BEAKER) (test 8.4 mg/dL 8.4-10.2 uqia=574) EGFR (BEAKER) (test 11 mL/min/1.73 sq m ESTIMATED GFR IS NOT aqgi=0641) ACCURATE CREATININE CLEARANCE IN PREDICTING GLOMERULAR FILTRATION RATE. ESTIMATED GFR IS NOT APPLICABLE FOR DIALYSIS PATIENTS. [id number] 05:18:00 Test Item Value Reference Range Comments MAGNESIUM (BEAKER) (test vdzj=331) 1.9 mg/dL 1.6-2.6 PROTHROMBIN [id number] 05:03:00 Test Item Value Reference Range Comments PROTIME (BEAKER) (test hbqq=807) 30.2 seconds 11.7-14.7 INR (BEAKER) (test foau=073) 2.9 <=5.9 RECOMMENDED COUMADIN/WARFARIN INR THERAPY RANGESSTANDARD DOSE: 2.0 - 3.0 Includes: PROPHYLAXIS forvenous thrombosis, systemic embolization; TREATMENT for venous thrombosis and/or pulmonary embolus.HIGH RISK: Target INR is 2.5-3.5 for patients with mechanical heart valves.CBC W/PLT COUNT & AUTO [id number] 04:51:00 Test Item Value Reference Range Comments WHITE BLOOD CELL COUNT (BEAKER) (test ipqb=704) 10.2 K/ L 3.5-10.5 RED BLOOD CELL COUNT (BEAKER) (test zldl=094) 3.27 M/ L 4.63-6.08 HEMOGLOBIN (BEAKER) (test hwqc=667) 9.7 GM/DL 13.7-17.5 HEMATOCRIT (BEAKER) (test jwnl=359) 30.5 % 40.1-51.0 MEAN CORPUSCULAR VOLUME (BEAKER) (test blrf=619) 93.3 fL 79.0-92.2 MEAN CORPUSCULAR HEMOGLOBIN (BEAKER) (test 29.7 pg 25.7-32.2 wcag=475) MEAN CORPUSCULAR HEMOGLOBIN CONC (BEAKER) (test 31.8 GM/DL 32.3-36.5 tkev=740) RED CELL DISTRIBUTION WIDTH (BEAKER) (test 15.8 % 11.6-14.4 zbhe=225) PLATELET COUNT (BEAKER) (test qthn=429) 181 K/CU MM 150-450 MEAN PLATELET VOLUME (BEAKER) (test hdhx=401) 9.4 fL 9.4-12.4 NUCLEATED RED BLOOD CELLS (BEAKER) (test 0 /100 WBC 0-0 imtc=638) NEUTROPHILS RELATIVE PERCENT (BEAKER) (test 78 % jzud=134) LYMPHOCYTES RELATIVE PERCENT (BEAKER) (test 8 % abgj=519) MONOCYTES RELATIVE PERCENT (BEAKER) (test 10 % ppci=363) EOSINOPHILS RELATIVE PERCENT (BEAKER) (test 2 % zezk=466) BASOPHILS RELATIVE PERCENT (BEAKER) (test 1 % doqb=546) NEUTROPHILS ABSOLUTE COUNT (BEAKER) (test 7.90 K/ L 1.78-5.38 prmx=839) LYMPHOCYTES ABSOLUTE COUNT (BEAKER) (test 0.86 K/ L 1.32-3.57 nfto=244) MONOCYTES ABSOLUTE COUNT (BEAKER) (test 1.01 K/ L 0.30-0.82 zfkm=080) EOSINOPHILS ABSOLUTE COUNT (BEAKER) (test 0.17 K/ L 0.04-0.54 nuea=358) BASOPHILS ABSOLUTE COUNT (BEAKER) (test 0.07 K/ L 0.01-0.08 pzgp=560) IMMATURE GRANULOCYTES-RELATIVE PERCENT (BEAKER) 2 % 0-1 (test mwnb=3367) POCT-GLUCOSE [id number] 23:35:00 Test Item Value Reference Range Comments POC-GLUCOSE METER (BEAKER) 190 mg/dL 70-110 TESTED AT [place] [id number] [facility] [facility] (test ljha=6232) [place] [address] POCT-GLUCOSE [id number] 17:16:00 Test Item Value Reference Range Comments POC-GLUCOSE METER (BEAKER) 122 mg/dL 70-110 TESTED AT [address] (test erru=9106) [place] [address] U/S, TESTICULAR (SCROTUM)2018-05-21 14:53:00Reason for exam:->testicular swellingFINAL [...] Verified Date/ Time: 05/21/2018 14:53:00 Reading Location: [facility] [id number] UltrasoundReading Room POCT-GLUCOSE [id number] 11:22:00 Test Item Value Reference Range Comments POC-GLUCOSE METER (BEAKER) 144 mg/dL 70-110 TESTED AT [address] (test mpiq=7029) [facility] [address] POCT-GLUCOSE [id number] 07:05:00 Test Item Value Reference Range Comments POC-GLUCOSE METER (BEAKER) 171 mg/dL 70-110 TESTED AT [address] (test smfx=8289) [facility] [address] BASIC METABOLIC [id number] 06:19:00 Test Item Value Reference Range Comments SODIUM (BEAKER) (test 137 meq/L 136-145 uptp=072) POTASSIUM (BEAKER) (test 3.3 meq/L 3.5-5.1 iglf=390) CHLORIDE (BEAKER) (test 98 meq/L 98-107 pyus=393) CO2 (BEAKER) (test 31 meq/L 22-29 fdog=439) BLOOD UREA NITROGEN 22 mg/dL 7-21 (BEAKER) (test qirl=515) CREATININE (BEAKER) (test 4.82 mg/dL 0.57-1.25 dfsa=114) GLUCOSE RANDOM (BEAKER) 161 mg/dL 70-105 (test eshm=443) CALCIUM (BEAKER) (test 8.5 mg/dL 8.4-10.2 iytt=315) EGFR (BEAKER) (test 15 mL/min/1.73 sq m ESTIMATED GFR IS NOT zhit=5563) ACCURATE CREATININE CLEARANCE IN PREDICTING GLOMERULAR FILTRATION RATE. ESTIMATED GFR IS NOT APPLICABLE FOR DIALYSIS PATIENTS. [id number] 06:04:00 Test Item Value Reference Range Comments MAGNESIUM (BEAKER) (test pcdp=967) 1.9 mg/dL 1.6-2.6 PROTHROMBIN [id number] 05:31:00 Test Item Value Reference Range Comments PROTIME (BEAKER) (test tifa=670) 29.0 seconds 11.7-14.7 INR (BEAKER) (test lwng=459) 2.7 <=5.9 RECOMMENDED COUMADIN/WARFARIN INR THERAPY RANGESSTANDARD DOSE: 2.0 - 3.0 Includes: PROPHYLAXIS forvenous thrombosis, systemic embolization; TREATMENT for venous thrombosis and/or pulmonary embolus.HIGH RISK: Target INR is 2.5-3.5 for patients with mechanical heart valves.CBC W/PLT COUNT & AUTO [id number] 05:27:00 Test Item Value Reference Range Comments WHITE BLOOD CELL COUNT (BEAKER) (test narg=135) 9.5 K/ L 3.5-10.5 RED BLOOD CELL COUNT (BEAKER) (test spzo=606) 3.38 M/ L 4.63-6.08 HEMOGLOBIN (BEAKER) (test xsyq=172) 10.0 GM/DL 13.7-17.5 HEMATOCRIT (BEAKER) (test kvez=306) 31.5 % 40.1-51.0 MEAN CORPUSCULAR VOLUME (BEAKER) (test txlp=998) 93.2 fL 79.0-92.2 MEAN CORPUSCULAR HEMOGLOBIN (BEAKER) (test 29.6 pg 25.7-32.2 fevg=759) MEAN CORPUSCULAR HEMOGLOBIN CONC (BEAKER) (test 31.7 GM/DL 32.3-36.5 lwsr=708) RED CELL DISTRIBUTION WIDTH (BEAKER) (test 15.7 % 11.6-14.4 qnde=597) PLATELET COUNT (BEAKER) (test lvmx=302) 178 K/CU MM 150-450 MEAN PLATELET VOLUME (BEAKER) (test gjkj=631) 8.7 fL 9.4-12.4 NUCLEATED RED BLOOD CELLS (BEAKER) (test 0 /100 WBC 0-0 olhs=561) NEUTROPHILS RELATIVE PERCENT (BEAKER) (test 77 % hksu=330) LYMPHOCYTES RELATIVE PERCENT (BEAKER) (test 9 % totk=670) MONOCYTES RELATIVE PERCENT (BEAKER) (test 10 % ivav=093) EOSINOPHILS RELATIVE PERCENT (BEAKER) (test 2 % nmbm=372) BASOPHILS RELATIVE PERCENT (BEAKER) (test 1 % ppmm=947) NEUTROPHILS ABSOLUTE COUNT (BEAKER) (test 7.36 K/ L 1.78-5.38 xiaf=708) LYMPHOCYTES ABSOLUTE COUNT (BEAKER) (test 0.88 K/ L 1.32-3.57 cplh=901) MONOCYTES ABSOLUTE COUNT (BEAKER) (test 0.95 K/ L 0.30-0.82 efpz=698) EOSINOPHILS ABSOLUTE COUNT (BEAKER) (test 0.16 K/ L 0.04-0.54 fydy=171) BASOPHILS ABSOLUTE COUNT (BEAKER) (test 0.05 K/ L 0.01-0.08 vulb=977) IMMATURE GRANULOCYTES-RELATIVE PERCENT (BEAKER) 1 % 0-1 (test bgfp=9988) POCT-GLUCOSE [id number] 21:29:00 Test Item Value Reference Range Comments POC-GLUCOSE METER (BEAKER) 156 mg/dL 70-110 TESTED AT [address] (test xjxv=5467) [facility] [address] POCT-GLUCOSE [id number] 18:14:00 Test Item Value Reference Range Comments POC-GLUCOSE METER (BEAKER) 93 mg/dL 70-110 TESTED AT [address] (test daif=1999) [facility] [address] PROTHROMBIN [id number] 13:26:00 Test Item Value Reference Range Comments PROTIME (BEAKER) (test haty=745) 42.0 seconds 11.7-14.7 INR (BEAKER) (test uwhp=347) 4.4 <=5.9 RECOMMENDED COUMADIN/WARFARIN INR THERAPY RANGESSTANDARD DOSE: 2.0 - 3.0 Includes: PROPHYLAXIS forvenous thrombosis, systemic embolization; TREATMENT for venous thrombosis and/or pulmonary embolus.HIGH RISK: Target INR is 2.5-3.5 for patients with mechanical heart valves.LACTIC ACID, VENOUS, WHOLE [id number] 13:18:00 Test Item Value Reference Range Comments LACTATE BLOOD VENOUS (2) (BEAKER) (test 0.8 mmol/L 0.5-2.2 sckr=2890) Effective 01/04/2016: Units/Reference Range ChangeNew: 0.5-2.2 mmol/L Previous: 5 -20 mg/dLPOCT-GLUCOSE [id number] 12:04:00 Test Item Value Reference Range Comments POC-GLUCOSE METER (BEAKER) 111 mg/dL 70-110 TESTED AT [facility] [address] [facility] (test khns=3731) [facility] [address] CD4 T CELL [id number] 12:04:00 Test Item Value Reference Range Comments CD4/CD8 RATIO FC (BEAKER) (test bays=2943) 0.76 0.70-3.23 HEPATITIS B SURFACE [id number] 11:32:00 Test Item Value Reference Range Comments HEPATITIS B SURFACE ANTIGEN (2) (BEAKER) (test Nonreactive Nonreactive rxti=0927) VANCOMYCIN LEVEL, [id number] 11:10:00 Test Item Value Reference Range Comments VANCOMYCIN RANDOM (BEAKER) (test ubzl=413) 20.7 ug/mL Reference Range: No NormalsBASIC METABOLIC [id number] 09:19:00 Test Item Value Reference Range Comments SODIUM (BEAKER) (test 129 meq/L 136-145 hkof=015) POTASSIUM (BEAKER) (test 3.4 meq/L 3.5-5.1 whvu=574) CHLORIDE (BEAKER) (test 93 meq/L 98-107 yzij=155) CO2 (BEAKER) (test 26 meq/L 22-29 sdcd=931) BLOOD UREA NITROGEN 46 mg/dL 7-21 (BEAKER) (test uthy=132) CREATININE (BEAKER) (test 7.70 mg/dL 0.57-1.25 enlo=136) GLUCOSE RANDOM (BEAKER) 129 mg/dL 70-105 (test ront=358) CALCIUM (BEAKER) (test 8.5 mg/dL 8.4-10.2 daqo=300) EGFR (BEAKER) (test 9 mL/min/1.73 sq m ESTIMATED GFR IS NOT lafm=5667) ACCURATE CREATININE CLEARANCE IN PREDICTING GLOMERULAR FILTRATION RATE. ESTIMATED GFR IS NOT APPLICABLE FOR DIALYSIS PATIENTS. [id number] 09:16:00 Test Item Value Reference Range Comments MAGNESIUM (BEAKER) (test kvav=993) 2.1 mg/dL 1.6-2.6 RAD, CHEST, 1 VIEW, NON [id number] 07:56:00Reason for exam:->pleural effusion seen on outside hospital imagingShould this be performed at the bedside ?->YesFINAL REPORT Chest one view compared to February 23 Discussion: Small effusions are similar. Replaced cardiac valve and atrial appendage clip noted. No pneumothorax. Unchanged cardiac pulmonary appearance. Signed: Rhea Colindresepdamion Verified Date/Time: 05/20/2018 07:56:50 Reading Location: [facility] Radiology Reading Room POCT-GLUCOSE [id number] 07:32:00 Test Item Value Reference Range Comments POC-GLUCOSE METER (BEAKER) 105 mg/dL 70-110 TESTED AT [facility] [address] [facility] (test mbie=7608) [facility] [address] CBC W/PLT COUNT & AUTO [id number] 07:01:00 Test Item Value Reference Range Comments WHITE BLOOD CELL COUNT (BEAKER) (test rovt=773) 9.1 K/ L 3.5-10.5 RED BLOOD CELL COUNT (BEAKER) (test ayqn=483) 3.34 M/ L 4.63-6.08 HEMOGLOBIN (BEAKER) (test vjpq=496) 9.8 GM/DL 13.7-17.5 HEMATOCRIT (BEAKER) (test icxg=455) 30.9 % 40.1-51.0 MEAN CORPUSCULAR VOLUME (BEAKER) (test cnpv=480) 92.5 fL 79.0-92.2 MEAN CORPUSCULAR HEMOGLOBIN (BEAKER) (test 29.3 pg 25.7-32.2 yclz=256) MEAN CORPUSCULAR HEMOGLOBIN CONC (BEAKER) (test 31.7 GM/DL 32.3-36.5 illj=041) RED CELL DISTRIBUTION WIDTH (BEAKER) (test 15.8 % 11.6-14.4 gide=725) PLATELET COUNT (BEAKER) (test dkar=437) 173 K/CU MM 150-450 MEAN PLATELET VOLUME (BEAKER) (test fkxh=823) 9.2 fL 9.4-12.4 NUCLEATED RED BLOOD CELLS (BEAKER) (test 0 /100 WBC 0-0 kybi=805) NEUTROPHILS RELATIVE PERCENT (BEAKER) (test 78 % xnxc=781) LYMPHOCYTES RELATIVE PERCENT (BEAKER) (test 9 % qlca=962) MONOCYTES RELATIVE PERCENT (BEAKER) (test 11 % jfxd=000) EOSINOPHILS RELATIVE PERCENT (BEAKER) (test 1 % xkrv=731) BASOPHILS RELATIVE PERCENT (BEAKER) (test 0 % vomw=951) NEUTROPHILS ABSOLUTE COUNT (BEAKER) (test 7.12 K/ L 1.78-5.38 ciad=872) LYMPHOCYTES ABSOLUTE COUNT (BEAKER) (test 0.84 K/ L 1.32-3.57 gbmu=413) MONOCYTES ABSOLUTE COUNT (BEAKER) (test 0.98 K/ L 0.30-0.82 iorv=964) EOSINOPHILS ABSOLUTE COUNT (BEAKER) (test 0.07 K/ L 0.04-0.54 dvdi=400) BASOPHILS ABSOLUTE COUNT (BEAKER) (test 0.03 K/ L 0.01-0.08 vbzh=562) IMMATURE GRANULOCYTES-RELATIVE PERCENT (BEAKER) 1 % 0-1 (test iewh=6587) VANCOMYCIN LEVEL, [id number] 22:39:00 Test Item Value Reference Range Comments VANCOMYCIN RANDOM (BEAKER) (test vqdz=711) 22.0 ug/mL Reference Range: No NormalsCOMPREHENSIVE METABOLIC [id number] 22:39:00 Test Item Value Reference Range Comments TOTAL PROTEIN (BEAKER) 7.3 gm/dL 6.0-8.3 (test ppcy=851) ALBUMIN (BEAKER) (test 3.0 g/dL 3.5-5.0 gdqt=7574) ALKALINE PHOSPHATASE 65 U/L 40-150 (BEAKER) (test joxw=641) BILIRUBIN TOTAL (BEAKER) 0.9 mg/dL 0.2-1.2 (test ybjr=416) SODIUM (BEAKER) (test 130 meq/L 136-145 erqs=554) POTASSIUM (BEAKER) (test 3.5 meq/L 3.5-5.1 qdjs=181) CHLORIDE (BEAKER) (test 94 meq/L 98-107 jtqi=790) CO2 (BEAKER) (test 24 meq/L 22-29 agqs=483) BLOOD UREA NITROGEN 44 mg/dL 7-21 (BEAKER) (test dpph=841) CREATININE (BEAKER) (test 7.35 mg/dL 0.57-1.25 igtw=952) GLUCOSE RANDOM (BEAKER) 144 mg/dL 70-105 (test soru=708) CALCIUM (BEAKER) (test 8.6 mg/dL 8.4-10.2 bfvh=152) AST (SGOT) (BEAKER) (test 30 U/L 5-34 pyaj=251) ALT (SGPT) (BEAKER) (test 21 U/L 6-55 rgst=815) EGFR (BEAKER) (test 9 mL/min/1.73 sq m ESTIMATED GFR IS NOT sbnb=4893) ACCURATE CREATININE CLEARANCE IN PREDICTING GLOMERULAR FILTRATION RATE. ESTIMATED GFR IS NOT APPLICABLE FOR DIALYSIS PATIENTS. [id number] 22:38:00 Test Item Value Reference Range Comments PHOSPHORUS (BEAKER) (test zaqw=574) 4.5 mg/dL 2.3-4.7 [id number] 22:38:00 Test Item Value Reference Range Comments MAGNESIUM (BEAKER) (test sgmo=672) 2.0 mg/dL 1.6-2.6 [id number] 22:29:00 Test Item Value Reference Range Comments PARTIAL THROMBOPLASTIN TIME (BEAKER) (test 45.0 seconds 22.5-36.0 tflh=627) PROTHROMBIN [id number] 22:28:00 Test Item Value Reference Range Comments PROTIME (BEAKER) (test udgy=735) 48.1 seconds 11.7-14.7 INR (BEAKER) (test eiju=834) 5.2 <=5.9 RECOMMENDED COUMADIN/WARFARIN INR THERAPY RANGESSTANDARD DOSE: 2.0 - 3.0 Includes: PROPHYLAXIS forvenous thrombosis, systemic embolization; TREATMENT for venous thrombosis and/or pulmonary embolus.HIGH RISK: Target INR is 2.5-3.5 for patients with mechanical heart valves.POCT-GLUCOSE [id number] 21:38:00 Test Item Value Reference Range Comments POC-GLUCOSE METER (JARROD) 105 mg/dL 70-110 TESTED AT [facility] [address] (test mcye=9689) [place] [address] XR Ankle Complete 3+ Views [id number] 22:30:07Patient: CALEB LUGO Date/Time05/12/2018 22:24 CDTReason for [...] Signature): 05/12/2018 10:30 pmXR Chest 1 View [id number] 09-10 09:48:17Patient: CALEB LUGO Date/Time05/12/2018 09:30 CDTReason [...] ( Electronic Signature): 05/12/2018 9:48 amBASIC METABOLIC [id number] 11:15: 00 Test Item Value Reference Range Comments SODIUM (BEAKER) (test 139 meq/L 136-145 ivql=409) POTASSIUM (BEAKER) (test 3.5 meq/L 3.5-5.1 ommi=800) CHLORIDE (BEAKER) (test 96 meq/L 98-107 dyny=795) CO2 (BEAKER) (test 29 meq/L 22-29 gjxi=607) BLOOD UREA NITROGEN 31 mg/dL 7-21 (BEAKER) (test rxhr=023) CREATININE (BEAKER) (test 6.31 mg/dL 0.57-1.25 gzvs=824) GLUCOSE RANDOM (BEAKER) 147 mg/dL 70-105 (test wcju=254) CALCIUM (BEAKER) (test 9.7 mg/dL 8.4-10.2 wvay=483) EGFR (BEAKER) (test 11 mL/min/1.73 sq m ESTIMATED GFR IS NOT imsb=0112) ACCURATE CREATININE CLEARANCE IN PREDICTING GLOMERULAR FILTRATION RATE. ESTIMATED GFR IS NOT APPLICABLE FOR DIALYSIS PATIENTS. B-TYPE NATRIURETIC FACTOR (BNP)2018-03-19 11:13:00 Test Item Value Reference Range Comments B-TYPE NATRIURETIC PEPTIDE (BEAKER) (test 3030 pg/mL 0-100 pzyx=702) BASIC METABOLIC [id number] 02:55:00 Test Item Value Reference Range Comments SODIUM (BEAKER) (test 139 meq/L 136-145 kebd=423) POTASSIUM (BEAKER) (test 4.1 meq/L 3.5-5.1 dfex=577) CHLORIDE (BEAKER) (test 97 meq/L 98-107 wlor=418) CO2 (BEAKER) (test 32 meq/L 22-29 dwwm=897) BLOOD UREA NITROGEN 34 mg/dL 7-21 (BEAKER) (test igiq=371) CREATININE (BEAKER) (test 5.68 mg/dL 0.57-1.25 pgyb=937) GLUCOSE RANDOM (BEAKER) 109 mg/dL 70-105 (test ghew=019) CALCIUM (BEAKER) (test 9.3 mg/dL 8.4-10.2 nsgs=766) EGFR (BEAKER) (test 12 mL/min/1.73 sq m ESTIMATED GFR IS NOT ygxu=3891) ACCURATE CREATININE CLEARANCE IN PREDICTING GLOMERULAR FILTRATION RATE. ESTIMATED GFR IS NOT APPLICABLE FOR DIALYSIS PATIENTS. B-TYPE NATRIURETIC FACTOR (BNP)2018-02-24 02:31:00 Test Item Value Reference Range Comments B-TYPE NATRIURETIC PEPTIDE (BEAKER) (test 3676 pg/mL 0-100 hujr=149) TROPONIN [id number] 02:30:00 Test Item Value Reference Range Comments TROPONIN I (BEAKER) (test gmqf=855) 0.14 ng/mL 0.00-0.03 Troponin I (TnI) levels [...] failure, acidosis, acute neurological disease, and persistent tachyarrhythmia.[id number] 02:21:00 Test Item Value Reference Range Comments MAGNESIUM (BEAKER) (test zvos=921) 1.8 mg/dL 1.6-2.6 CBC W/PLT COUNT & AUTO [id number] 00:24:00 Test Item Value Reference Range Comments WHITE BLOOD CELL COUNT (BEAKER) (test zjit=016) 7.8 K/ L 3.5-10.5 RED BLOOD CELL COUNT (BEAKER) (test boyq=697) 3.03 M/ L 4.63-6.08 HEMOGLOBIN (BEAKER) (test mmzv=103) 9.2 GM/DL 13.7-17.5 HEMATOCRIT (BEAKER) (test umhj=682) 30.1 % 40.1-51.0 MEAN CORPUSCULAR VOLUME (BEAKER) (test ugft=944) 99.3 fL 79.0-92.2 MEAN CORPUSCULAR HEMOGLOBIN (BEAKER) (test 30.4 pg 25.7-32.2 obhk=778) MEAN CORPUSCULAR HEMOGLOBIN CONC (BEAKER) (test 30.6 GM/DL 32.3-36.5 rnfl=842) RED CELL DISTRIBUTION WIDTH (BEAKER) (test 18.5 % 11.6-14.4 hitp=565) PLATELET COUNT (BEAKER) (test efkh=774) 83 K/CU MM 150-450 MEAN PLATELET VOLUME (BEAKER) (test ldkm=304) 10.2 fL 9.4-12.4 NUCLEATED RED BLOOD CELLS (BEAKER) (test 0 /100 WBC 0-0 vcqj=521) NEUTROPHILS RELATIVE PERCENT (BEAKER) (test 63 % pwfd=914) LYMPHOCYTES RELATIVE PERCENT (BEAKER) (test 21 % wxjm=850) MONOCYTES RELATIVE PERCENT (BEAKER) (test 13 % jqkq=305) EOSINOPHILS RELATIVE PERCENT (BEAKER) (test 1 % wiok=583) BASOPHILS RELATIVE PERCENT (BEAKER) (test 1 % ihjr=191) NEUTROPHILS ABSOLUTE COUNT (BEAKER) (test 4.95 K/ L 1.78-5.38 hyqy=538) LYMPHOCYTES ABSOLUTE COUNT (BEAKER) (test 1.61 K/ L 1.32-3.57 vdbk=827) MONOCYTES ABSOLUTE COUNT (BEAKER) (test wker=074) 1.04 K/ L 0.30-0.82 EOSINOPHILS ABSOLUTE COUNT (BEAKER) (test 0.10 K/ L 0.04-0.54 ffys=414) BASOPHILS ABSOLUTE COUNT (BEAKER) (test bzxv=146) 0.06 K/ L 0.01-0.08 IMMATURE GRANULOCYTES-RELATIVE PERCENT (BEAKER) 1 % 0-1 (test aswa=7325) [id number] 00:01:00 Test Item Value Reference Range Comments PROTIME (BEAKER) (test llmq=858) 14.4 seconds 11.7-14.7 INR (BEAKER) (test licq=106) 1.1 <=5.9 PARTIAL THROMBOPLASTIN TIME (BEAKER) (test 28.5 seconds 22.5-36.0 hayz=002) RECOMMENDED COUMADIN/WARFARIN INR THERAPY RANGESSTANDARD DOSE: 2.0 - 3.0 Includes: PROPHYLAXIS forvenous thrombosis, systemic embolization; TREATMENT for venous thrombosis and/or pulmonary embolus.HIGH RISK: Target INR is 2.5-3.5 for patients with mechanical heart valves.RAD, CHEST, 1 VIEW, NON [id number] 23:39:00Reason for exam:->chest painShould this be [...] Wan Verified Date/Time: 02/23/2018 23:39:58 Reading Location: [address] Reading Room Electronically signed by: JOSIAH WAN M.D. on 11:39 PMPOCT-GLUCOSE [id number] 19:47:00 Test Item Value Reference Range Comments POC-GLUCOSE METER (BEAKER) 94 mg/dL 70-110 TESTED AT [address] (test ydvi=5155) [place] [id number] POCT-GLUCOSE [id number] 17:07:00 Test Item Value Reference Range Comments POC-GLUCOSE METER (BEAKER) 176 mg/dL 70-110 TESTED AT [address] (test ndvr=9717) [place] [address] POCT-GLUCOSE [id number] 12:31:00 Test Item Value Reference Range Comments POC-GLUCOSE METER (BEAKER) 84 mg/dL 70-110 TESTED AT [address] (test jkcs=6648) [place] [address] [id number] 10:40:00 Test Item Value Reference Range Comments PARTIAL THROMBOPLASTIN TIME (BEAKER) (test 88.5 seconds 22.5-36.0 desx=026) OCCULT BLOOD, [id number] 09:36:00 Test Item Value Reference Range Comments FECAL OCCULT BLOOD (BEAKER) (test iysj=872) Negative Negative POCT-GLUCOSE [id number] 08:51:00 Test Item Value Reference Range Comments POC-GLUCOSE METER (BEAKER) 223 mg/dL 70-110 TESTED AT [address] (test ffua=6816) [place] [address] [id number] 04:14:00 Test Item Value Reference Range Comments PARTIAL THROMBOPLASTIN TIME (BEAKER) (test 80.3 seconds 22.5-36.0 auix=969) While on warfarin.PROTHROMBIN TIME/[id number] 04:13:00 Test Item Value Reference Range Comments PROTIME (BEAKER) (test icpy=144) 23.8 seconds 11.7-14.7 INR (BEAKER) (test rggp=815) 2.1 <=5.9 RECOMMENDED COUMADIN/WARFARIN INR THERAPY RANGESSTANDARD DOSE: 2.0 - 3.0 Includes: PROPHYLAXIS forvenous thrombosis, systemic embolization; TREATMENT for venous thrombosis and/or pulmonary embolus.HIGH RISK: Target INR is 2.5-3.5 for patients with mechanical heart valves.While on warfarin.POCT-GLUCOSE [id number] 21:56:00 Test Item Value Reference Range Comments POC-GLUCOSE METER (BEAKER) 206 mg/dL 70-110 TESTED AT [address] (test krqv=1316) [place] [address] [id number] 19:50:00 Test Item Value Reference Range Comments PARTIAL THROMBOPLASTIN TIME (BEAKER) (test 59.7 seconds 22.5-36.0 wrkk=224) POCT-GLUCOSE [id number] 17:00:00 Test Item Value Reference Range Comments POC-GLUCOSE METER (BEAKER) 183 mg/dL 70-110 TESTED AT [address] (test qorx=3776) [place] [address] [id number] 12:45:00 Test Item Value Reference Range Comments PARTIAL THROMBOPLASTIN TIME (BEAKER) (test 89.5 seconds 22.5-36.0 qayl=210) CBC W/PLT COUNT & AUTO [id number] 12:04:00 Test Item Value Reference Range Comments WHITE BLOOD CELL COUNT (BEAKER) (test xehb=739) 4.8 K/ L 3.5-10.5 RED BLOOD CELL COUNT (BEAKER) (test sxlt=283) 2.46 M/ L 4.63-6.08 HEMOGLOBIN (BEAKER) (test vdrc=190) 7.5 GM/DL 13.7-17.5 HEMATOCRIT (BEAKER) (test glkz=640) 24.2 % 40.1-51.0 MEAN CORPUSCULAR VOLUME (BEAKER) (test bdrv=084) 98.4 fL 79.0-92.2 MEAN CORPUSCULAR HEMOGLOBIN (BEAKER) (test 30.5 pg 25.7-32.2 uevy=801) MEAN CORPUSCULAR HEMOGLOBIN CONC (BEAKER) (test 31.0 GM/DL 32.3-36.5 cmvm=919) RED CELL DISTRIBUTION WIDTH (BEAKER) (test 18.0 % 11.6-14.4 kfxr=848) PLATELET COUNT (BEAKER) (test phle=465) 90 K/CU MM 150-450 MEAN PLATELET VOLUME (BEAKER) (test xvvr=483) 9.3 fL 9.4-12.4 NUCLEATED RED BLOOD CELLS (BEAKER) (test 0 /100 WBC 0-0 luhp=608) POCT-GLUCOSE [id number] 11:54:00 Test Item Value Reference Range Comments POC-GLUCOSE METER (BEAKER) 124 mg/dL 70-110 TESTED AT [address] (test htwy=8713) [place] [address] POCT-GLUCOSE [id number] 07:48:00 Test Item Value Reference Range Comments POC-GLUCOSE METER (BEAKER) 178 mg/dL 70-110 TESTED AT [address] (test drlu=2518) [place] [address] BASIC METABOLIC [id number] 05:15:00 Test Item Value Reference Range Comments SODIUM (BEAKER) (test 133 meq/L 136-145 vblo=275) POTASSIUM (BEAKER) (test 4.8 meq/L 3.5-5.1 pkrb=340) CHLORIDE (BEAKER) (test 97 meq/L 98-107 jxaj=716) CO2 (BEAKER) (test 27 meq/L 22-29 dujs=689) BLOOD UREA NITROGEN 26 mg/dL 7-21 (BEAKER) (test wmvs=279) CREATININE (BEAKER) (test 5.28 mg/dL 0.57-1.25 dfuv=160) GLUCOSE RANDOM (BEAKER) 131 mg/dL 70-105 (test ukmy=945) CALCIUM (BEAKER) (test 8.5 mg/dL 8.4-10.2 axem=296) EGFR (BEAKER) (test 14 mL/min/1.73 sq m ESTIMATED GFR IS NOT udub=9712) ACCURATE CREATININE CLEARANCE IN PREDICTING GLOMERULAR FILTRATION RATE. ESTIMATED GFR IS NOT APPLICABLE FOR DIALYSIS PATIENTS. [id number] 04:51:00 Test Item Value Reference Range Comments MAGNESIUM (BEAKER) (test fkji=752) 1.8 mg/dL 1.6-2.6 [id number] 04:36:00 Test Item Value Reference Range Comments PARTIAL THROMBOPLASTIN TIME (BEAKER) (test 91.9 seconds 22.5-36.0 yfsk=497) While on warfarin.PROTHROMBIN TIME/[id number] 04:34:00 Test Item Value Reference Range Comments PROTIME (BEAKER) (test dfhr=042) 21.6 seconds 11.7-14.7 INR (BEAKER) (test evbz=599) 1.9 <=5.9 RECOMMENDED COUMADIN/WARFARIN INR THERAPY RANGESSTANDARD DOSE: 2.0 - 3.0 Includes: PROPHYLAXIS forvenous thrombosis, systemic embolization; TREATMENT for venous thrombosis and/or pulmonary embolus.HIGH RISK: Target INR is 2.5-3.5 for patients with mechanical heart valves.While on warfarin.POCT-GLUCOSE [id number] 21:46:00 Test Item Value Reference Range Comments POC-GLUCOSE METER (BEAKER) 126 mg/dL 70-110 TESTED AT [address] (test rncc=2561) [place] [address] [id number] 21:23:00 Test Item Value Reference Range Comments PARTIAL THROMBOPLASTIN TIME (BEAKER) (test 84.1 seconds 22.5-36.0 gtmm=995) POCT-GLUCOSE [id number] 16:57:00 Test Item Value Reference Range Comments POC-GLUCOSE METER (BEAKER) 156 mg/dL 70-110 TESTED AT [address] (test jsaa=0944) [place] [address] [id number] 14:11:00 Test Item Value Reference Range Comments PARTIAL THROMBOPLASTIN TIME (BEAKER) (test 96.5 seconds 22.5-36.0 jzht=272) POCT-GLUCOSE [id number] 08:24:00 Test Item Value Reference Range Comments POC-GLUCOSE METER (BEAKER) 169 mg/dL 70-110 TESTED AT [address] (test ddmc=6968) [place] [address] POCT-GLUCOSE [id number] 06:49:00 Test Item Value Reference Range Comments POC-GLUCOSE METER (BEAKER) 172 mg/dL 70-110 TESTED AT [address] (test eyvf=4197) [place] [address] [id number] 04:59:00 Test Item Value Reference Range Comments PARTIAL THROMBOPLASTIN TIME (BEAKER) (test 64.7 seconds 22.5-36.0 lvmn=418) While on warfarin.PROTHROMBIN [id number] 04:57:00 Test Item Value Reference Range Comments PROTIME (BEAKER) (test eczf=927) 17.5 seconds 11.7-14.7 INR (BEAKER) (test dius=570) 1.4 <=5.9 RECOMMENDED COUMADIN/WARFARIN INR THERAPY RANGESSTANDARD DOSE: 2.0 - 3.0 Includes: PROPHYLAXIS forvenous thrombosis, systemic embolization; TREATMENT for venous thrombosis and/or pulmonary embolus.HIGH RISK: Target INR is 2.5-3.5 for patients with mechanical heart valves.While on warfarin.[id number] 21:55 :00 Test Item Value Reference Range Comments PARTIAL THROMBOPLASTIN TIME (BEAKER) (test 68.8 seconds 22.5-36.0 cwhn=187) [id number] 13:54:00 Test Item Value Reference Range Comments PARTIAL THROMBOPLASTIN TIME (BEAKER) (test 51.7 seconds 22.5-36.0 vqje=153) POCT-GLUCOSE [id number] 11:56:00 Test Item Value Reference Range Comments POC-GLUCOSE METER (BEAKER) 101 mg/dL 70-110 TESTED AT [address] (test wxfv=2842) [place] [address] POCT-GLUCOSE [id number] 07:58:00 Test Item Value Reference Range Comments POC-GLUCOSE METER (BEAKER) 111 mg/dL 70-110 TESTED AT [address] (test zjtp=3711) [place] [address] BASIC METABOLIC [id number] 05:35:00 Test Item Value Reference Range Comments SODIUM (BEAKER) (test 132 meq/L 136-145 fpxx=202) POTASSIUM (BEAKER) (test 3.9 meq/L 3.5-5.1 nxik=177) CHLORIDE (BEAKER) (test 95 meq/L 98-107 rkkj=700) CO2 (BEAKER) (test 26 meq/L 22-29 jjta=518) BLOOD UREA NITROGEN 29 mg/dL 7-21 (BEAKER) (test dnhg=950) CREATININE (BEAKER) (test 5.57 mg/dL 0.57-1.25 tiyy=994) GLUCOSE RANDOM (BEAKER) 148 mg/dL 70-105 (test mfwx=541) CALCIUM (BEAKER) (test 8.2 mg/dL 8.4-10.2 diys=252) EGFR (BEAKER) (test 13 mL/min/1.73 sq m ESTIMATED GFR IS NOT pvfe=8852) ACCURATE CREATININE CLEARANCE IN PREDICTING GLOMERULAR FILTRATION RATE. ESTIMATED GFR IS NOT APPLICABLE FOR DIALYSIS PATIENTS. [id number] 05:34:00 Test Item Value Reference Range Comments PHOSPHORUS (BEAKER) (test zgbi=059) 4.2 mg/dL 2.3-4.7 [id number] 05:34:00 Test Item Value Reference Range Comments MAGNESIUM (BEAKER) (test rtna=679) 1.7 mg/dL 1.6-2.6 PROTHROMBIN [id number] 05:24:00 Test Item Value Reference Range Comments PROTIME (BEAKER) (test hewr=821) 18.8 seconds 11.7-14.7 INR (BEAKER) (test pemo=027) 1.6 <=5.9 RECOMMENDED COUMADIN/WARFARIN INR THERAPY RANGESSTANDARD DOSE: 2.0 - 3.0 Includes: PROPHYLAXIS forvenous thrombosis, systemic embolization; TREATMENT for venous thrombosis and/or pulmonary embolus.HIGH RISK: Target INR is 2.5-3.5 for patients with mechanical heart valves.[id number] 05:05:00 Test Item Value Reference Range Comments PARTIAL THROMBOPLASTIN TIME (BEAKER) (test 96.6 seconds 22.5-36.0 yeul=597) CBC W/PLT COUNT & AUTO [id number] 04:54:00 Test Item Value Reference Range Comments WHITE BLOOD CELL COUNT (BEAKER) (test tbuw=264) 5.5 K/ L 3.5-10.5 RED BLOOD CELL COUNT (BEAKER) (test gnlm=441) 2.40 M/ L 4.63-6.08 HEMOGLOBIN (BEAKER) (test bphi=302) 7.3 GM/DL 13.7-17.5 HEMATOCRIT (BEAKER) (test figk=791) 23.3 % 40.1-51.0 MEAN CORPUSCULAR VOLUME (BEAKER) (test cujc=577) 97.1 fL 79.0-92.2 MEAN CORPUSCULAR HEMOGLOBIN (BEAKER) (test 30.4 pg 25.7-32.2 yqfn=020) MEAN CORPUSCULAR HEMOGLOBIN CONC (BEAKER) (test 31.3 GM/DL 32.3-36.5 acgc=641) RED CELL DISTRIBUTION WIDTH (BEAKER) (test 18.9 % 11.6-14.4 zncy=501) PLATELET COUNT (BEAKER) (test gpzt=555) 87 K/CU MM 150-450 MEAN PLATELET VOLUME (BEAKER) (test xyyg=452) 9.5 fL 9.4-12.4 NUCLEATED RED BLOOD CELLS (BEAKER) (test 0 /100 WBC 0-0 imyf=429) NEUTROPHILS RELATIVE PERCENT (BEAKER) (test 69 % bumc=376) LYMPHOCYTES RELATIVE PERCENT (BEAKER) (test 18 % bcdb=649) MONOCYTES RELATIVE PERCENT (BEAKER) (test 11 % pwvi=882) EOSINOPHILS RELATIVE PERCENT (BEAKER) (test 1 % acpm=389) BASOPHILS RELATIVE PERCENT (BEAKER) (test 0 % rppz=236) NEUTROPHILS ABSOLUTE COUNT (BEAKER) (test 3.77 K/ L 1.78-5.38 yzjf=407) LYMPHOCYTES ABSOLUTE COUNT (BEAKER) (test 0.97 K/ L 1.32-3.57 clgi=002) MONOCYTES ABSOLUTE COUNT (BEAKER) (test geat=204) 0.62 K/ L 0.30-0.82 EOSINOPHILS ABSOLUTE COUNT (BEAKER) (test 0.07 K/ L 0.04-0.54 xddt=847) BASOPHILS ABSOLUTE COUNT (BEAKER) (test eswm=178) 0.02 K/ L 0.01-0.08 IMMATURE GRANULOCYTES-RELATIVE PERCENT (BEAKER) 1 % 0-1 (test ulzx=9429) OCCULT BLOOD, [id number] 22:44:00 Test Item Value Reference Range Comments FECAL OCCULT BLOOD (BEAKER) (test jhvi=710) Positive Negative [id number] 21:14:00 Test Item Value Reference Range Comments PARTIAL THROMBOPLASTIN TIME (BEAKER) (test 69.1 seconds 22.5-36.0 wsdg=892) POCT-GLUCOSE [id number] 20:49:00 Test Item Value Reference Range Comments POC-GLUCOSE METER (BEAKER) 160 mg/dL 70-110 TESTED AT [address] (test wafr=8244) [place] [id number] POCT-GLUCOSE [id number] 17:59:00 Test Item Value Reference Range Comments POC-GLUCOSE METER (BEAKER) 128 mg/dL 70-110 TESTED AT [address] (test rasi=3755) [place] [address] POCT-GLUCOSE [id number] 13:31:00 Test Item Value Reference Range Comments POC-GLUCOSE METER (BEAKER) 70 mg/dL 70-110 TESTED AT [address] (test gjdk=7251) [place] [address] [id number] 13:16:00 Test Item Value Reference Range Comments PARTIAL THROMBOPLASTIN TIME (BEAKER) (test 78.3 seconds 22.5-36.0 jvtf=456) POCT-GLUCOSE [id number] 12:47:00 Test Item Value Reference Range Comments POC-GLUCOSE METER (BEAKER) 49 mg/dL 70-110 TESTED AT [address] (test pjxa=4877) [place] [address] POCT-GLUCOSE [id number] 09:05:00 Test Item Value Reference Range Comments POC-GLUCOSE METER (BEAKER) 306 mg/dL 70-110 TESTED AT [address] (test bxzz=0812) [place] [address] OCCULT BLOOD, [id number] 06:52:00 Test Item Value Reference Range Comments FECAL OCCULT BLOOD (BEAKER) (test uisr=847) Positive Negative [id number] 05:42:00 Test Item Value Reference Range Comments PARTIAL THROMBOPLASTIN TIME (BEAKER) (test 70.5 seconds 22.5-36.0 ilhp=147) IRON, TIBC, % SAT. (WITHOUT FERRITIN)[id number] 05:42:00 Test Item Value Reference Range Comments IRON (BEAKER) (test kbnb=709) 58 ug/dL 40-160 TOTAL IRON BINDING CAPACITY (BEAKER) (test 195 ug/dL 250-450 vssu=711) IRON % SATURATION (2) (BEAKER) (test tehh=7487) 30 % 20-55 BASIC METABOLIC [id number] 03:53:00 Test Item Value Reference Range Comments SODIUM (BEAKER) (test 134 meq/L 136-145 uppw=029) POTASSIUM (BEAKER) (test 4.1 meq/L 3.5-5.1 dclb=110) CHLORIDE (BEAKER) (test 98 meq/L 98-107 agme=290) CO2 (BEAKER) (test 27 meq/L 22-29 thwp=728) BLOOD UREA NITROGEN 16 mg/dL 7-21 (BEAKER) (test qpmw=783) CREATININE (BEAKER) (test 3.58 mg/dL 0.57-1.25 yfbf=052) GLUCOSE RANDOM (BEAKER) 103 mg/dL 70-105 (test ghux=856) CALCIUM (BEAKER) (test 8.3 mg/dL 8.4-10.2 ffhh=139) EGFR (BEAKER) (test 21 mL/min/1.73 sq m ESTIMATED GFR IS NOT irrl=7060) ACCURATE CREATININE CLEARANCE IN PREDICTING GLOMERULAR FILTRATION RATE. ESTIMATED GFR IS NOT APPLICABLE FOR DIALYSIS PATIENTS. [id number] 03:51:00 Test Item Value Reference Range Comments PHOSPHORUS (BEAKER) (test aaqg=935) 3.2 mg/dL 2.3-4.7 [id number] 03:51:00 Test Item Value Reference Range Comments PARTIAL THROMBOPLASTIN TIME (BEAKER) (test 122.0 seconds 22.5-36.0 gidr=700) While on warfarin.PROTHROMBIN [id number] 03:48:00 Test Item Value Reference Range Comments PROTIME (BEAKER) (test ulsi=627) 16.3 seconds 11.7-14.7 INR (BEAKER) (test embs=082) 1.3 <=5.9 RECOMMENDED COUMADIN/WARFARIN INR THERAPY RANGESSTANDARD DOSE: 2.0 - 3.0 Includes: PROPHYLAXIS forvenous thrombosis, systemic embolization; TREATMENT for venous thrombosis and/or pulmonary embolus.HIGH RISK: Target INR is 2.5-3.5 for patients with mechanical heart valves.While on warfarin.[id number] 03:44:00 Test Item Value Reference Range Comments MAGNESIUM (BEAKER) (test ueti=328) 1.7 mg/dL 1.6-2.6 CBC W/PLT COUNT & AUTO [id number] 03:38:00 Test Item Value Reference Range Comments WHITE BLOOD CELL COUNT (BEAKER) (test lsaa=874) 6.7 K/ L 3.5-10.5 RED BLOOD CELL COUNT (BEAKER) (test dcyw=454) 2.37 M/ L 4.63-6.08 HEMOGLOBIN (BEAKER) (test qmcq=812) 7.4 GM/DL 13.7-17.5 HEMATOCRIT (BEAKER) (test hhdn=433) 23.0 % 40.1-51.0 MEAN CORPUSCULAR VOLUME (BEAKER) (test ucwf=298) 97.0 fL 79.0-92.2 MEAN CORPUSCULAR HEMOGLOBIN (BEAKER) (test 31.2 pg 25.7-32.2 nmyy=960) MEAN CORPUSCULAR HEMOGLOBIN CONC (BEAKER) (test 32.2 GM/DL 32.3-36.5 weik=498) RED CELL DISTRIBUTION WIDTH (BEAKER) (test 19.9 % 11.6-14.4 jljt=035) PLATELET COUNT (BEAKER) (test uliu=202) 80 K/CU MM 150-450 MEAN PLATELET VOLUME (BEAKER) (test ecvy=503) 9.3 fL 9.4-12.4 NUCLEATED RED BLOOD CELLS (BEAKER) (test 0 /100 WBC 0-0 yuyy=395) NEUTROPHILS RELATIVE PERCENT (BEAKER) (test 81 % retc=719) LYMPHOCYTES RELATIVE PERCENT (BEAKER) (test 10 % ajzy=682) MONOCYTES RELATIVE PERCENT (BEAKER) (test 8 % jiaf=462) EOSINOPHILS RELATIVE PERCENT (BEAKER) (test 0 % wdyr=512) BASOPHILS RELATIVE PERCENT (BEAKER) (test 0 % txpk=030) NEUTROPHILS ABSOLUTE COUNT (BEAKER) (test 5.39 K/ L 1.78-5.38 gxuz=699) LYMPHOCYTES ABSOLUTE COUNT (BEAKER) (test 0.64 K/ L 1.32-3.57 pmyz=341) MONOCYTES ABSOLUTE COUNT (BEAKER) (test dvee=206) 0.55 K/ L 0.30-0.82 EOSINOPHILS ABSOLUTE COUNT (BEAKER) (test 0.02 K/ L 0.04-0.54 krzw=174) BASOPHILS ABSOLUTE COUNT (BEAKER) (test koug=211) 0.02 K/ L 0.01-0.08 IMMATURE GRANULOCYTES-RELATIVE PERCENT (BEAKER) 1 % 0-1 (test abfw=9228) POCT-GLUCOSE [id number] 23:35:00 Test Item Value Reference Range Comments POC-GLUCOSE METER (BEAKER) 149 mg/dL 70-110 TESTED AT [address] (test ylao=2516) [place] [address] [id number] 20:08:00 Test Item Value Reference Range Comments PARTIAL THROMBOPLASTIN TIME (BEAKER) (test 55.6 seconds 22.5-36.0 dcto=203) [id number] 15:10:00 Test Item Value Reference Range Comments PARTIAL THROMBOPLASTIN TIME (BEAKER) (test 81.4 seconds 22.5-36.0 fymk=056) POCT-GLUCOSE [id number] 11:58:00 Test Item Value Reference Range Comments POC-GLUCOSE METER (BEAKER) 124 mg/dL 70-110 TESTED AT [address] (test tuit=9284) [place] [address] RAD, CHEST, 1 VIEW, NON [id number] 08:59:00Reason for exam:->s/p mvrShould this be performed at the bedside?->YesFINAL REPORT Chest one view compared to January 24 Discussion: Left IJ line, atrial appendage clip, cardiac valve replacement noted. Mild interstitial congestion. No gross effusion or pneumothorax. IMPRESSIONS: No significant change Signed: Rhea Colindres Verified Date/Time:01/29/2018 08:59:39 Reading Location: [facility] Radiology Reading Room POCT-GLUCOSE [id number] 07:41:00 Test Item Value Reference Range Comments POC-GLUCOSE METER (BEAKER) 113 mg/dL 70-110 TESTED AT [address] (test njnb=6133) [place] [address] [id number] 07:23:00 Test Item Value Reference Range Comments PARTIAL THROMBOPLASTIN TIME (BEAKER) (test 89.8 seconds 22.5-36.0 mcui=953) BASIC METABOLIC [id number] 06:05:00 Test Item Value Reference Range Comments SODIUM (BEAKER) (test 134 meq/L 136-145 qrwk=459) POTASSIUM (BEAKER) (test 3.9 meq/L 3.5-5.1 ybuy=772) CHLORIDE (BEAKER) (test 96 meq/L 98-107 wpvc=985) CO2 (BEAKER) (test 28 meq/L 22-29 mfvt=314) BLOOD UREA NITROGEN 33 mg/dL 7-21 (BEAKER) (test zzby=789) CREATININE (BEAKER) (test 6.43 mg/dL 0.57-1.25 anag=932) GLUCOSE RANDOM (BEAKER) 85 mg/dL 70-105 (test bpes=455) CALCIUM (BEAKER) (test 8.4 mg/dL 8.4-10.2 pxtq=097) EGFR (BEAKER) (test 11 mL/min/1.73 sq m ESTIMATED GFR IS NOT bjcc=2025) ACCURATE CREATININE CLEARANCE IN PREDICTING GLOMERULAR FILTRATION RATE. ESTIMATED GFR IS NOT APPLICABLE FOR DIALYSIS PATIENTS. PROTHROMBIN [id number] 05:59:00 Test Item Value Reference Range Comments PROTIME (BEAKER) (test eaes=704) 17.0 seconds 11.7-14.7 INR (BEAKER) (test ittg=428) 1.4 <=5.9 RECOMMENDED COUMADIN/WARFARIN INR THERAPY RANGESSTANDARD DOSE: 2.0 - 3.0 Includes: PROPHYLAXIS forvenous thrombosis, systemic embolization; TREATMENT for venous thrombosis and/or pulmonary embolus.HIGH RISK: Target INR is 2.5-3.5 for patients with mechanical heart valves.While on warfarin.[id number] 05:56:00 Test Item Value Reference Range Comments PHOSPHORUS (BEAKER) (test kmpd=291) 5.3 mg/dL 2.3-4.7 [id number] 05:56:00 Test Item Value Reference Range Comments MAGNESIUM (BEAKER) (test sdpr=418) 1.9 mg/dL 1.6-2.6 CBC W/PLT COUNT & AUTO [id number] 05:38:00 Test Item Value Reference Range Comments WHITE BLOOD CELL COUNT (BEAKER) (test kvzw=425) 6.7 K/ L 3.5-10.5 RED BLOOD CELL COUNT (BEAKER) (test qwzd=853) 2.40 M/ L 4.63-6.08 HEMOGLOBIN (BEAKER) (test pqyk=685) 7.4 GM/DL 13.7-17.5 HEMATOCRIT (BEAKER) (test hfdq=365) 23.6 % 40.1-51.0 MEAN CORPUSCULAR VOLUME (BEAKER) (test llkf=517) 98.3 fL 79.0-92.2 MEAN CORPUSCULAR HEMOGLOBIN (BEAKER) (test 30.8 pg 25.7-32.2 ckcl=432) MEAN CORPUSCULAR HEMOGLOBIN CONC (BEAKER) (test 31.4 GM/DL 32.3-36.5 mkuh=408) RED CELL DISTRIBUTION WIDTH (BEAKER) (test 20.1 % 11.6-14.4 oqtd=425) PLATELET COUNT (BEAKER) (test unqe=555) 106 K/CU MM 150-450 MEAN PLATELET VOLUME (BEAKER) (test qauz=939) 9.9 fL 9.4-12.4 NUCLEATED RED BLOOD CELLS (BEAKER) (test 0 /100 WBC 0-0 jilp=436) NEUTROPHILS RELATIVE PERCENT (BEAKER) (test 77 % bzen=320) LYMPHOCYTES RELATIVE PERCENT (BEAKER) (test 14 % xlav=757) MONOCYTES RELATIVE PERCENT (BEAKER) (test 7 % syqh=359) EOSINOPHILS RELATIVE PERCENT (BEAKER) (test 1 % wkpl=408) BASOPHILS RELATIVE PERCENT (BEAKER) (test 0 % cuhk=025) NEUTROPHILS ABSOLUTE COUNT (BEAKER) (test 5.17 K/ L 1.78-5.38 rksv=504) LYMPHOCYTES ABSOLUTE COUNT (BEAKER) (test 0.91 K/ L 1.32-3.57 jqjw=677) MONOCYTES ABSOLUTE COUNT (BEAKER) (test 0.50 K/ L 0.30-0.82 rnro=194) EOSINOPHILS ABSOLUTE COUNT (BEAKER) (test 0.06 K/ L 0.04-0.54 yzyx=894) BASOPHILS ABSOLUTE COUNT (BEAKER) (test 0.01 K/ L 0.01-0.08 yzhw=738) IMMATURE GRANULOCYTES-RELATIVE PERCENT (BEAKER) 1 % 0-1 (test vlyy=3819) [id number] 01:07:00 Test Item Value Reference Range Comments PARTIAL THROMBOPLASTIN TIME (BEAKER) (test 63.5 seconds 22.5-36.0 kdzh=636) [id number] 18:24:00 Test Item Value Reference Range Comments PARTIAL THROMBOPLASTIN TIME (BEAKER) (test 56.6 seconds 22.5-36.0 gtrk=399) POCT-GLUCOSE [id number] 18:14:00 Test Item Value Reference Range Comments POC-GLUCOSE METER (BEAKER) 101 mg/dL 70-110 TESTED AT [address] (test ewxa=3901) [place] [address] [id number] 13:57:00 Test Item Value Reference Range Comments PARTIAL THROMBOPLASTIN TIME (BEAKER) (test 122.3 seconds 22.5-36.0 obwz=565) POCT-GLUCOSE [id number] 13:08:00 Test Item Value Reference Range Comments POC-GLUCOSE METER (BEAKER) 105 mg/dL 70-110 TESTED AT [address] (test pcnq=3810) [place] [address] BASIC METABOLIC [id number] 04:31:00 Test Item Value Reference Range Comments SODIUM (BEAKER) (test 136 meq/L 136-145 flkj=138) POTASSIUM (BEAKER) (test 3.7 meq/L 3.5-5.1 xyqi=045) CHLORIDE (BEAKER) (test 98 meq/L 98-107 qsax=978) CO2 (BEAKER) (test 27 meq/L 22-29 ermk=522) BLOOD UREA NITROGEN 23 mg/dL 7-21 (BEAKER) (test iron=208) CREATININE (BEAKER) (test 4.45 mg/dL 0.57-1.25 eluc=951) GLUCOSE RANDOM (BEAKER) 92 mg/dL 70-105 (test qtla=244) CALCIUM (BEAKER) (test 8.2 mg/dL 8.4-10.2 bfyb=373) EGFR (BEAKER) (test 16 mL/min/1.73 sq m ESTIMATED GFR IS NOT hegl=5751) ACCURATE CREATININE CLEARANCE IN PREDICTING GLOMERULAR FILTRATION RATE. ESTIMATED GFR IS NOT APPLICABLE FOR DIALYSIS PATIENTS. [id number] 04:28:00 Test Item Value Reference Range Comments PHOSPHORUS (BEAKER) (test qpti=444) 3.9 mg/dL 2.3-4.7 [id number] 04:28:00 Test Item Value Reference Range Comments MAGNESIUM (BEAKER) (test nskk=534) 1.7 mg/dL 1.6-2.6 HEPATIC FUNCTION [id number] 04:28:00 Test Item Value Reference Range Comments TOTAL PROTEIN (BEAKER) (test nfzr=590) 5.1 gm/dL 6.0-8.3 ALBUMIN (BEAKER) (test svyk=0607) 2.3 g/dL 3.5-5.0 BILIRUBIN TOTAL (BEAKER) (test twqo=886) 2.1 mg/dL 0.2-1.2 BILIRUBIN DIRECT (BEAKER) (test mwvv=622) 1.7 mg/dL 0.1-0.5 ALKALINE PHOSPHATASE (BEAKER) (test ablt=569) 65 U/L 40-150 AST (SGOT) (BEAKER) (test urik=186) 31 U/L 5-34 ALT (SGPT) (BEAKER) (test qfec=258) 33 U/L 6-55 [id number] 04:20:00 Test Item Value Reference Range Comments PARTIAL THROMBOPLASTIN TIME (BEAKER) (test 106.2 seconds 22.5-36.0 nqkn=176) While on warfarin.PROTHROMBIN TIME/[id number] 04:15:00 Test Item Value Reference Range Comments PROTIME (BEAKER) (test lotn=205) 18.4 seconds 11.7-14.7 INR (BEAKER) (test oqqa=039) 1.5 <=5.9 RECOMMENDED COUMADIN/WARFARIN INR THERAPY RANGESSTANDARD DOSE: 2.0 - 3.0 Includes: PROPHYLAXIS forvenous thrombosis, systemic embolization; TREATMENT for venous thrombosis and/or pulmonary embolus.HIGH RISK: Target INR is 2.5-3.5 for patients with mechanical heart valves.While on warfarin.CBC W/PLT COUNT &amp ; AUTO [id number] 04:05:00 Test Item Value Reference Range Comments WHITE BLOOD CELL COUNT (BEAKER) (test drkj=781) 8.0 K/ L 3.5-10.5 RED BLOOD CELL COUNT (BEAKER) (test xpvr=355) 2.27 M/ L 4.63-6.08 HEMOGLOBIN (BEAKER) (test mrdc=914) 7.1 GM/DL 13.7-17.5 HEMATOCRIT (BEAKER) (test cwew=178) 22.1 % 40.1-51.0 MEAN CORPUSCULAR VOLUME (BEAKER) (test ygyx=294) 97.4 fL 79.0-92.2 MEAN CORPUSCULAR HEMOGLOBIN (BEAKER) (test 31.3 pg 25.7-32.2 ylfy=492) MEAN CORPUSCULAR HEMOGLOBIN CONC (BEAKER) (test 32.1 GM/DL 32.3-36.5 hjrt=508) RED CELL DISTRIBUTION WIDTH (BEAKER) (test 20.5 % 11.6-14.4 czcx=365) PLATELET COUNT (BEAKER) (test unoo=443) 96 K/CU MM 150-450 MEAN PLATELET VOLUME (BEAKER) (test bltu=701) 10.1 fL 9.4-12.4 NUCLEATED RED BLOOD CELLS (BEAKER) (test 0 /100 WBC 0-0 ejzh=129) NEUTROPHILS RELATIVE PERCENT (BEAKER) (test 78 % zbsa=526) LYMPHOCYTES RELATIVE PERCENT (BEAKER) (test 12 % lmtz=578) MONOCYTES RELATIVE PERCENT (BEAKER) (test 8 % xviu=307) EOSINOPHILS RELATIVE PERCENT (BEAKER) (test 1 % kqdb=768) BASOPHILS RELATIVE PERCENT (BEAKER) (test 0 % oyko=250) NEUTROPHILS ABSOLUTE COUNT (BEAKER) (test 6.25 K/ L 1.78-5.38 ocsm=930) LYMPHOCYTES ABSOLUTE COUNT (BEAKER) (test 0.96 K/ L 1.32-3.57 mmri=073) MONOCYTES ABSOLUTE COUNT (BEAKER) (test scpr=352) 0.60 K/ L 0.30-0.82 EOSINOPHILS ABSOLUTE COUNT (BEAKER) (test 0.04 K/ L 0.04-0.54 oqxi=648) BASOPHILS ABSOLUTE COUNT (BEAKER) (test jxtj=803) 0.02 K/ L 0.01-0.08 IMMATURE GRANULOCYTES-RELATIVE PERCENT (BEAKER) 2 % 0-1 (test kpur=2291) POCT-GLUCOSE [id number] 00:29:00 Test Item Value Reference Range Comments POC-GLUCOSE METER (BEAKER) 119 mg/dL 70-110 TESTED AT [facility] [address] [facility] (test hlve=0323) [facility] [address] [id number] 00:24:00 Test Item Value Reference Range Comments PARTIAL THROMBOPLASTIN TIME (BEAKER) (test 72.4 seconds 22.5-36.0 udhk=419) POCT-GLUCOSE [id number] 18:33:00 Test Item Value Reference Range Comments POC-GLUCOSE METER (BEAKER) 158 mg/dL 70-110 TESTED AT [address] (test bwbl=4637) [facility] [address] [id number] 18:22:00 Test Item Value Reference Range Comments PARTIAL THROMBOPLASTIN TIME (BEAKER) (test 78.6 seconds 22.5-36.0 hggc=160) POCT-GLUCOSE [id number] 12:20:00 Test Item Value Reference Range Comments POC-GLUCOSE METER (BEAKER) 110 mg/dL 70-110 TESTED AT [address] (test bzme=5718) [facility] [address] [id number] 12:04:00 Test Item Value Reference Range Comments PARTIAL THROMBOPLASTIN TIME (BEAKER) (test 98.0 seconds 22.5-36.0 watg=416) [id number] 04:11:00 Test Item Value Reference Range Comments PROTIME (BEAKER) (test ljkx=624) 15.2 seconds 11.7-14.7 INR (BEAKER) (test jmaf=800) 1.2 <=5.9 PARTIAL THROMBOPLASTIN TIME (BEAKER) (test 67.9 seconds 22.5-36.0 rcgr=639) RECOMMENDED COUMADIN/WARFARIN INR THERAPY RANGESSTANDARD DOSE: 2.0 - 3.0 Includes: PROPHYLAXIS forvenous thrombosis, systemic embolization; TREATMENT for venous thrombosis and/or pulmonary embolus.HIGH RISK: Target INR is 2.5-3.5 for patients with mechanical heart valves.While on warfarin.While on warfarin.PROTHROMBIN [id number] 04:10:00 Test Item Value Reference Range Comments PROTIME (BEAKER) (test oxuh=213) 15.2 seconds 11.7-14.7 INR (BEAKER) (test luvc=896) 1.2 <=5.9 RECOMMENDED COUMADIN/WARFARIN INR THERAPY RANGESSTANDARD DOSE: 2.0 - 3.0 Includes: PROPHYLAXIS forvenous thrombosis, systemic embolization; TREATMENT for venous thrombosis and/or pulmonary embolus.HIGH RISK: Target INR is 2.5-3.5 for patients with mechanical heart valves.BASIC METABOLIC [id number] 03:53: 00 Test Item Value Reference Range Comments SODIUM (BEAKER) (test 134 meq/L 136-145 qssc=255) POTASSIUM (BEAKER) (test 3.9 meq/L 3.5-5.1 kcys=407) CHLORIDE (BEAKER) (test 96 meq/L 98-107 sqkc=642) CO2 (BEAKER) (test 23 meq/L 22-29 nzfl=014) BLOOD UREA NITROGEN 52 mg/dL 7-21 (BEAKER) (test ilvt=952) CREATININE (BEAKER) (test 6.75 mg/dL 0.57-1.25 ubxz=104) GLUCOSE RANDOM (BEAKER) 107 mg/dL 70-105 (test gaxg=792) CALCIUM (BEAKER) (test 8.7 mg/dL 8.4-10.2 nhaj=104) EGFR (BEAKER) (test 10 mL/min/1.73 sq m ESTIMATED GFR IS NOT mzwr=4874) ACCURATE CREATININE CLEARANCE IN PREDICTING GLOMERULAR FILTRATION RATE. ESTIMATED GFR IS NOT APPLICABLE FOR DIALYSIS PATIENTS. CBC W/PLT COUNT & AUTO [id number] 03:50:00 Test Item Value Reference Range Comments WHITE BLOOD CELL COUNT (BEAKER) (test oura=801) 10.5 K/ L 3.5-10.5 RED BLOOD CELL COUNT (BEAKER) (test jxeb=659) 2.55 M/ L 4.63-6.08 HEMOGLOBIN (BEAKER) (test gopk=158) 8.0 GM/DL 13.7-17.5 HEMATOCRIT (BEAKER) (test qvto=059) 24.6 % 40.1-51.0 MEAN CORPUSCULAR VOLUME (BEAKER) (test sbgi=916) 96.5 fL 79.0-92.2 MEAN CORPUSCULAR HEMOGLOBIN (BEAKER) (test 31.4 pg 25.7-32.2 ywdf=103) MEAN CORPUSCULAR HEMOGLOBIN CONC (BEAKER) (test 32.5 GM/DL 32.3-36.5 lgux=017) RED CELL DISTRIBUTION WIDTH (BEAKER) (test 19.8 % 11.6-14.4 lrni=305) PLATELET COUNT (BEAKER) (test sljj=627) 141 K/CU MM 150-450 MEAN PLATELET VOLUME (BEAKER) (test gslc=096) 9.6 fL 9.4-12.4 NUCLEATED RED BLOOD CELLS (BEAKER) (test 0 /100 WBC 0-0 pkhq=290) NEUTROPHILS RELATIVE PERCENT (BEAKER) (test 80 % cfdj=228) LYMPHOCYTES RELATIVE PERCENT (BEAKER) (test 11 % ytsx=603) MONOCYTES RELATIVE PERCENT (BEAKER) (test 7 % ppzf=843) EOSINOPHILS RELATIVE PERCENT (BEAKER) (test 1 % afbn=842) BASOPHILS RELATIVE PERCENT (BEAKER) (test 0 % iqyw=804) NEUTROPHILS ABSOLUTE COUNT (BEAKER) (test 8.37 K/ L 1.78-5.38 gove=960) LYMPHOCYTES ABSOLUTE COUNT (BEAKER) (test 1.11 K/ L 1.32-3.57 fzsv=431) MONOCYTES ABSOLUTE COUNT (BEAKER) (test 0.73 K/ L 0.30-0.82 uqob=967) EOSINOPHILS ABSOLUTE COUNT (BEAKER) (test 0.07 K/ L 0.04-0.54 yilp=218) BASOPHILS ABSOLUTE COUNT (BEAKER) (test 0.02 K/ L 0.01-0.08 oesp=940) IMMATURE GRANULOCYTES-RELATIVE PERCENT (BEAKER) 2 % 0-1 (test avnk=2178) [id number] 03:45:00 Test Item Value Reference Range Comments PHOSPHORUS (BEAKER) (test fotq=637) 4.7 mg/dL 2.3-4.7 [id number] 03:45:00 Test Item Value Reference Range Comments MAGNESIUM (BEAKER) (test mgub=686) 2.0 mg/dL 1.6-2.6 HEPATIC FUNCTION [id number] 03:45:00 Test Item Value Reference Range Comments TOTAL PROTEIN (BEAKER) (test agof=401) 5.5 gm/dL 6.0-8.3 ALBUMIN (BEAKER) (test nrow=0669) 2.4 g/dL 3.5-5.0 BILIRUBIN TOTAL (BEAKER) (test qecy=944) 2.4 mg/dL 0.2-1.2 BILIRUBIN DIRECT (BEAKER) (test looe=610) 2.0 mg/dL 0.1-0.5 ALKALINE PHOSPHATASE (BEAKER) (test dcco=036) 69 U/L 40-150 AST (SGOT) (BEAKER) (test snrt=729) 34 U/L 5-34 ALT (SGPT) (BEAKER) (test sond=242) 36 U/L 6-55 [id number] 22:16:00 Test Item Value Reference Range Comments PARTIAL THROMBOPLASTIN TIME (BEAKER) (test 60.7 seconds 22.5-36.0 uklp=924) POCT-GLUCOSE [id number] 18:32:00 Test Item Value Reference Range Comments POC-GLUCOSE METER (BEAKER) 125 mg/dL 70-110 TESTED AT [facility] [address] [facility] (test smge=5577) [facility] [address] CBC (HEMOGRAM ONLY)[id number] 17:21:00 Test Item Value Reference Range Comments WHITE BLOOD CELL COUNT (BEAKER) (test qaju=491) 10.2 K/ L 3.5-10.5 RED BLOOD CELL COUNT (BEAKER) (test zgtl=673) 2.57 M/ L 4.63-6.08 HEMOGLOBIN (BEAKER) (test zmux=521) 8.1 GM/DL 13.7-17.5 HEMATOCRIT (BEAKER) (test fjgt=071) 24.8 % 40.1-51.0 MEAN CORPUSCULAR VOLUME (BEAKER) (test qrdz=709) 96.5 fL 79.0-92.2 MEAN CORPUSCULAR HEMOGLOBIN (BEAKER) (test 31.5 pg 25.7-32.2 hozk=446) MEAN CORPUSCULAR HEMOGLOBIN CONC (BEAKER) (test 32.7 GM/DL 32.3-36.5 zbje=925) RED CELL DISTRIBUTION WIDTH (BEAKER) (test 19.8 % 11.6-14.4 yanj=992) PLATELET COUNT (BEAKER) (test nvvr=790) 148 K/CU MM 150-450 MEAN PLATELET VOLUME (BEAKER) (test kpxc=685) 9.4 fL 9.4-12.4 NUCLEATED RED BLOOD CELLS (BEAKER) (test 0 /100 WBC 0-0 ubbj=102) BASIC METABOLIC [id number] 07:16:00 Test Item Value Reference Range Comments SODIUM (BEAKER) (test 137 meq/L 136-145 shqg=629) POTASSIUM (BEAKER) (test 3.6 meq/L 3.5-5.1 jpjv=607) CHLORIDE (BEAKER) (test 97 meq/L 98-107 fvjc=110) CO2 (BEAKER) (test 27 meq/L 22-29 darh=575) BLOOD UREA NITROGEN 44 mg/dL 7-21 (BEAKER) (test qfdd=523) CREATININE (BEAKER) (test 5.57 mg/dL 0.57-1.25 tuwl=063) GLUCOSE RANDOM (BEAKER) 100 mg/dL 70-105 (test xfnk=721) CALCIUM (BEAKER) (test 8.6 mg/dL 8.4-10.2 godo=745) EGFR (BEAKER) (test 13 mL/min/1.73 sq m ESTIMATED GFR IS NOT xbev=7347) ACCURATE CREATININE CLEARANCE IN PREDICTING GLOMERULAR FILTRATION RATE. ESTIMATED GFR IS NOT APPLICABLE FOR DIALYSIS PATIENTS. [id number] 07:13:00 Test Item Value Reference Range Comments PHOSPHORUS (BEAKER) (test rddb=989) 4.3 mg/dL 2.3-4.7 [id number] 07:13:00 Test Item Value Reference Range Comments MAGNESIUM (BEAKER) (test cvbi=023) 2.0 mg/dL 1.6-2.6 HEPATIC FUNCTION [id number] 07:13:00 Test Item Value Reference Range Comments TOTAL PROTEIN (BEAKER) (test szmt=862) 5.4 gm/dL 6.0-8.3 ALBUMIN (BEAKER) (test sxwc=2927) 2.4 g/dL 3.5-5.0 BILIRUBIN TOTAL (BEAKER) (test ptpq=965) 2.6 mg/dL 0.2-1.2 BILIRUBIN DIRECT (BEAKER) (test iyst=921) 2.2 mg/dL 0.1-0.5 ALKALINE PHOSPHATASE (BEAKER) (test cubt=104) 65 U/L 40-150 AST (SGOT) (BEAKER) (test gntm=712) 32 U/L 5-34 ALT (SGPT) (BEAKER) (test fuka=454) 37 U/L 6-55 [id number] 07:12:00 Test Item Value Reference Range Comments PROTIME (BEAKER) (test ctsn=810) 14.2 seconds 11.7-14.7 INR (BEAKER) (test qfrn=921) 1.1 <=5.9 PARTIAL THROMBOPLASTIN TIME (BEAKER) (test 66.6 seconds 22.5-36.0 mhwq=107) RECOMMENDED COUMADIN/WARFARIN INR THERAPY RANGESSTANDARD DOSE: 2.0 - 3.0 Includes: PROPHYLAXIS forvenous thrombosis, systemic embolization; TREATMENT for venous thrombosis and/or pulmonary embolus.HIGH RISK: Target INR is 2.5-3.5 for patients with mechanical heart valves.CBC W/PLT COUNT & AUTO [id number] 06:58:00 Test Item Value Reference Range Comments WHITE BLOOD CELL COUNT (BEAKER) (test siok=650) 9.5 K/ L 3.5-10.5 RED BLOOD CELL COUNT (BEAKER) (test pgui=913) 2.50 M/ L 4.63-6.08 HEMOGLOBIN (BEAKER) (test lcju=255) 7.8 GM/DL 13.7-17.5 HEMATOCRIT (BEAKER) (test poet=985) 24.2 % 40.1-51.0 MEAN CORPUSCULAR VOLUME (BEAKER) (test dqws=100) 96.8 fL 79.0-92.2 MEAN CORPUSCULAR HEMOGLOBIN (BEAKER) (test 31.2 pg 25.7-32.2 zlqy=389) MEAN CORPUSCULAR HEMOGLOBIN CONC (BEAKER) (test 32.2 GM/DL 32.3-36.5 deyd=609) RED CELL DISTRIBUTION WIDTH (BEAKER) (test 19.8 % 11.6-14.4 nryb=107) PLATELET COUNT (BEAKER) (test nsgo=556) 142 K/CU MM 150-450 MEAN PLATELET VOLUME (BEAKER) (test zvci=834) 9.9 fL 9.4-12.4 NUCLEATED RED BLOOD CELLS (BEAKER) (test 0 /100 WBC 0-0 gsfq=073) NEUTROPHILS RELATIVE PERCENT (BEAKER) (test 81 % hvli=260) LYMPHOCYTES RELATIVE PERCENT (BEAKER) (test 9 % jqqt=219) MONOCYTES RELATIVE PERCENT (BEAKER) (test 7 % jfyk=182) EOSINOPHILS RELATIVE PERCENT (BEAKER) (test 1 % ovyk=871) BASOPHILS RELATIVE PERCENT (BEAKER) (test 0 % sqne=965) NEUTROPHILS ABSOLUTE COUNT (BEAKER) (test 7.74 K/ L 1.78-5.38 fled=497) LYMPHOCYTES ABSOLUTE COUNT (BEAKER) (test 0.89 K/ L 1.32-3.57 wioo=157) MONOCYTES ABSOLUTE COUNT (BEAKER) (test 0.62 K/ L 0.30-0.82 zwwg=312) EOSINOPHILS ABSOLUTE COUNT (BEAKER) (test 0.06 K/ L 0.04-0.54 uadd=292) BASOPHILS ABSOLUTE COUNT (BEAKER) (test 0.01 K/ L 0.01-0.08 ocwt=317) IMMATURE GRANULOCYTES-RELATIVE PERCENT (BEAKER) 2 % 0-1 (test mxhk=1019) BLOOD [id number] 00:00:00 Test Item Value Reference Range Comments CULTURE (BEAKER) (test bozv=3469) No growth in 5 days BLOOD [id number] 00:00:00 Test Item Value Reference Range Comments CULTURE (BEAKER) (test ksnq=4019) No growth in 5 days POCT-GLUCOSE [id number] 23:37:00 Test Item Value Reference Range Comments POC-GLUCOSE METER (BEAKER) 87 mg/dL 70-110 TESTED AT [address] (test wutl=5263) [place] [address] [id number] 23:06:00 Test Item Value Reference Range Comments PARTIAL THROMBOPLASTIN TIME (BEAKER) (test 81.8 seconds 22.5-36.0 pwkr=265) POCT-GLUCOSE [id number] 20:42:00 Test Item Value Reference Range Comments POC-GLUCOSE METER (BEAKER) 193 mg/dL 70-110 TESTED AT [address] (test iirn=6795) [place] [address] HEMOGLOBIN AND [id number] 17:40:00 Test Item Value Reference Range Comments HEMOGLOBIN (BEAKER) (test pxbz=877) 8.4 GM/DL 13.7-17.5 HEMATOCRIT (BEAKER) (test fgwu=168) 25.4 % 40.1-51.0 [id number] 13:06:00 Test Item Value Reference Range Comments PARTIAL THROMBOPLASTIN TIME (BEAKER) (test 61.4 seconds 22.5-36.0 fysr=659) POCT-GLUCOSE [id number] 12:56:00 Test Item Value Reference Range Comments POC-GLUCOSE METER (BEAKER) 116 mg/dL 70-110 TESTED AT [facility] [address] (test vmek=1878) [facility] [address] [id number] 06:43:00 Test Item Value Reference Range Comments FERRITIN (BEAKER) (test oifp=440) 2521 ng/mL 5-275 IRON, TIBC, % SAT. (WITHOUT FERRITIN)2018-01-25 05:51:00 Test Item Value Reference Range Comments IRON (BEAKER) (test dzjt=430) 61 ug/dL 40-160 TOTAL IRON BINDING CAPACITY (BEAKER) (test 165 ug/dL 250-450 cwwc=718) IRON % SATURATION (2) (BEAKER) (test nsro=4894) 37 % 20-55 [id number] 05:32:00 Test Item Value Reference Range Comments PARTIAL THROMBOPLASTIN TIME (BEAKER) (test 63.7 seconds 22.5-36.0 fxfh=087) BASIC METABOLIC [id number] 05:03:00 Test Item Value Reference Range Comments SODIUM (BEAKER) (test 140 meq/L 136-145 mbdg=459) POTASSIUM (BEAKER) (test 3.8 meq/L 3.5-5.1 kpgf=152) CHLORIDE (BEAKER) (test 99 meq/L 98-107 tyhu=083) CO2 (BEAKER) (test 28 meq/L 22-29 kddv=623) BLOOD UREA NITROGEN 32 mg/dL 7-21 (BEAKER) (test keat=531) CREATININE (BEAKER) (test 3.87 mg/dL 0.57-1.25 ghtg=027) GLUCOSE RANDOM (BEAKER) 145 mg/dL 70-105 (test pqpg=598) CALCIUM (BEAKER) (test 8.5 mg/dL 8.4-10.2 fcep=134) EGFR (BEAKER) (test 19 mL/min/1.73 sq m ESTIMATED GFR IS NOT nzaj=5413) ACCURATE CREATININE CLEARANCE IN PREDICTING GLOMERULAR FILTRATION RATE. ESTIMATED GFR IS NOT APPLICABLE FOR DIALYSIS PATIENTS. HEPATIC FUNCTION [id number] 05:00:00 Test Item Value Reference Range Comments TOTAL PROTEIN (BEAKER) (test rvcu=531) 5.3 gm/dL 6.0-8.3 ALBUMIN (BEAKER) (test nocp=6578) 2.3 g/dL 3.5-5.0 BILIRUBIN TOTAL (BEAKER) (test lpfw=533) 3.0 mg/dL 0.2-1.2 BILIRUBIN DIRECT (BEAKER) (test crxx=287) 2.5 mg/dL 0.1-0.5 ALKALINE PHOSPHATASE (BEAKER) (test becv=088) 72 U/L 40-150 AST (SGOT) (BEAKER) (test aech=384) 34 U/L 5-34 ALT (SGPT) (BEAKER) (test hgmg=240) 41 U/L 6-55 [id number] 04:40:00 Test Item Value Reference Range Comments PROTIME (BEAKER) (test gxap=571) 14.5 seconds 11.7-14.7 INR (BEAKER) (test yqgk=915) 1.1 <=5.9 PARTIAL THROMBOPLASTIN TIME (BEAKER) (test 64.1 seconds 22.5-36.0 zmjs=132) RECOMMENDED COUMADIN/WARFARIN INR THERAPY RANGESSTANDARD DOSE: 2.0 - 3.0 Includes: PROPHYLAXIS forvenous thrombosis, systemic embolization; TREATMENT for venous thrombosis and/or pulmonary embolus.HIGH RISK: Target INR is 2.5-3.5 for patients with mechanical heart valves.CBC (HEMOGRAM ONLY)2018-01-25 04:27:00 Test Item Value Reference Range Comments WHITE BLOOD CELL COUNT (BEAKER) (test wmja=834) 11.7 K/ L 3.5-10.5 RED BLOOD CELL COUNT (BEAKER) (test sost=661) 2.55 M/ L 4.63-6.08 HEMOGLOBIN (BEAKER) (test atjl=574) 7.9 GM/DL 13.7-17.5 HEMATOCRIT (BEAKER) (test xvkx=438) 24.6 % 40.1-51.0 MEAN CORPUSCULAR VOLUME (BEAKER) (test zdyh=755) 96.5 fL 79.0-92.2 MEAN CORPUSCULAR HEMOGLOBIN (BEAKER) (test 31.0 pg 25.7-32.2 wtxd=843) MEAN CORPUSCULAR HEMOGLOBIN CONC (BEAKER) (test 32.1 GM/DL 32.3-36.5 iroe=256) RED CELL DISTRIBUTION WIDTH (BEAKER) (test 20.1 % 11.6-14.4 nztn=884) PLATELET COUNT (BEAKER) (test lstf=133) 123 K/CU MM 150-450 MEAN PLATELET VOLUME (BEAKER) (test rvfi=230) 10.1 fL 9.4-12.4 NUCLEATED RED BLOOD CELLS (BEAKER) (test 0 /100 WBC 0-0 wtnz=941) POCT-GLUCOSE [id number] 00:30:00 Test Item Value Reference Range Comments POC-GLUCOSE METER (BEAKER) 112 mg/dL 70-110 TESTED AT [facility] [address] [facility] (test ktck=5826) [place] [address] CBC W/PLT COUNT & AUTO [id number] 19:16:00 Test Item Value Reference Range Comments WHITE BLOOD CELL COUNT (BEAKER) (test hbcr=707) 15.7 K/ L 3.5-10.5 RED BLOOD CELL COUNT (BEAKER) (test qzoc=344) 2.89 M/ L 4.63-6.08 HEMOGLOBIN (BEAKER) (test zvew=895) 9.1 GM/DL 13.7-17.5 HEMATOCRIT (BEAKER) (test nddk=253) 27.3 % 40.1-51.0 MEAN CORPUSCULAR VOLUME (BEAKER) (test ochw=863) 94.5 fL 79.0-92.2 MEAN CORPUSCULAR HEMOGLOBIN (BEAKER) (test 31.5 pg 25.7-32.2 xrye=250) MEAN CORPUSCULAR HEMOGLOBIN CONC (BEAKER) (test 33.3 GM/DL 32.3-36.5 hjee=827) RED CELL DISTRIBUTION WIDTH (BEAKER) (test 19.9 % 11.6-14.4 yfyv=182) PLATELET COUNT (BEAKER) (test kctc=213) 149 K/CU MM 150-450 MEAN PLATELET VOLUME (BEAKER) (test zbtm=884) 9.6 fL 9.4-12.4 NUCLEATED RED BLOOD CELLS (BEAKER) (test 0 /100 WBC 0-0 ivgx=104) NEUTROPHILS RELATIVE PERCENT (BEAKER) (test 88 % dgdc=377) LYMPHOCYTES RELATIVE PERCENT (BEAKER) (test 5 % zlob=344) MONOCYTES RELATIVE PERCENT (BEAKER) (test 6 % vkpm=224) EOSINOPHILS RELATIVE PERCENT (BEAKER) (test 0 % kyym=128) BASOPHILS RELATIVE PERCENT (BEAKER) (test 0 % grsc=664) NEUTROPHILS ABSOLUTE COUNT (BEAKER) (test 13.71 K/ L 1.78-5.38 scae=826) LYMPHOCYTES ABSOLUTE COUNT (BEAKER) (test 0.76 K/ L 1.32-3.57 gqkm=396) MONOCYTES ABSOLUTE COUNT (BEAKER) (test 0.90 K/ L 0.30-0.82 xhve=614) EOSINOPHILS ABSOLUTE COUNT (BEAKER) (test 0.07 K/ L 0.04-0.54 ymba=695) BASOPHILS ABSOLUTE COUNT (BEAKER) (test 0.02 K/ L 0.01-0.08 drov=792) IMMATURE GRANULOCYTES-RELATIVE PERCENT (BEAKER) 1 % 0-1 (test yhpi=4444) POCT-GLUCOSE [id number] 18:27:00 Test Item Value Reference Range Comments POC-GLUCOSE METER (BEAKER) 102 mg/dL 70-110 TESTED AT [place] [id number] [facility] (test epxn=8420) [place] [address] POCT-GLUCOSE [id number] 13:01:00 Test Item Value Reference Range Comments POC-GLUCOSE METER (BEAKER) 119 mg/dL 70-110 TESTED AT [address] (test thtw=4906) [place] [address] RAD, CHEST, 1 VIEW, NON [id number] 10:59:00Reason for exam:->ptxShould this be performed at [...] MDReport Verified Date/Time: 01/24/2018 10:59:29 Reading Location: [facility] Diagnostic Imaging Reading Room - [place] [address] BRONCHIAL CULTURE + GRAM [id number] 08:53:00 Test Item Value Reference Range Comments CULTURE (BEAKER) (test 2+ Normal respiratory pete hfum=5892) present GRAM STAIN RESULT (BEAKER) 4+ White blood cells seen (test gxrd=6674) GRAM STAIN RESULT (BEAKER) No organisms seen (test ltbb=63791) POCT-GLUCOSE [id number] 06:28:00 Test Item Value Reference Range Comments POC-GLUCOSE METER (BEAKER) 119 mg/dL 70-110 TESTED AT [facility] [address] [facility] (test ljla=9709) [facility] [address] BASIC METABOLIC [id number] 04:41:00 Test Item Value Reference Range Comments SODIUM (BEAKER) (test 138 meq/L 136-145 bxls=415) POTASSIUM (BEAKER) (test 4.1 meq/L 3.5-5.1 hkkl=736) CHLORIDE (BEAKER) (test 98 meq/L 98-107 ehzp=871) CO2 (BEAKER) (test 24 meq/L 22-29 wetz=000) BLOOD UREA NITROGEN 59 mg/dL 7-21 (BEAKER) (test rsee=744) CREATININE (BEAKER) (test 5.65 mg/dL 0.57-1.25 este=608) GLUCOSE RANDOM (BEAKER) 118 mg/dL 70-105 (test bbsn=814) CALCIUM (BEAKER) (test 8.8 mg/dL 8.4-10.2 oooa=318) EGFR (BEAKER) (test 13 mL/min/1.73 sq m ESTIMATED GFR IS NOT nkgr=8247) ACCURATE CREATININE CLEARANCE IN PREDICTING GLOMERULAR FILTRATION RATE. ESTIMATED GFR IS NOT APPLICABLE FOR DIALYSIS PATIENTS. Specimen slightly ictericCBC (HEMOGRAM ONLY)2018-01-24 04:34:00 Test Item Value Reference Range Comments WHITE BLOOD CELL COUNT (BEAKER) (test rijo=951) 13.4 K/ L 3.5-10.5 RED BLOOD CELL COUNT (BEAKER) (test qttv=782) 2.40 M/ L 4.63-6.08 HEMOGLOBIN (BEAKER) (test uatv=277) 7.4 GM/DL 13.7-17.5 HEMATOCRIT (BEAKER) (test vqvo=563) 22.8 % 40.1-51.0 MEAN CORPUSCULAR VOLUME (BEAKER) (test zrim=991) 95.0 fL 79.0-92.2 MEAN CORPUSCULAR HEMOGLOBIN (BEAKER) (test 30.8 pg 25.7-32.2 gace=354) MEAN CORPUSCULAR HEMOGLOBIN CONC (BEAKER) (test 32.5 GM/DL 32.3-36.5 letr=063) RED CELL DISTRIBUTION WIDTH (BEAKER) (test 19.8 % 11.6-14.4 uasw=602) PLATELET COUNT (BEAKER) (test itin=696) 107 K/CU MM 150-450 MEAN PLATELET VOLUME (BEAKER) (test qqbj=683) 10.6 fL 9.4-12.4 NUCLEATED RED BLOOD CELLS (BEAKER) (test 0 /100 WBC 0-0 qiwc=432) [id number] 04:21:00 Test Item Value Reference Range Comments MAGNESIUM (BEAKER) (test zfrw=833) 2.0 mg/dL 1.6-2.6 HEPATIC FUNCTION [id number] 04:21:00 Test Item Value Reference Range Comments TOTAL PROTEIN (BEAKER) (test aody=107) 5.2 gm/dL 6.0-8.3 ALBUMIN (BEAKER) (test kwti=3533) 2.3 g/dL 3.5-5.0 BILIRUBIN TOTAL (BEAKER) (test muqi=958) 3.9 mg/dL 0.2-1.2 BILIRUBIN DIRECT (BEAKER) (test aowu=059) 3.1 mg/dL 0.1-0.5 ALKALINE PHOSPHATASE (BEAKER) (test qteu=816) 69 U/L 40-150 AST (SGOT) (BEAKER) (test ygxo=883) 36 U/L 5-34 ALT (SGPT) (BEAKER) (test bynq=649) 36 U/L 6-55 Specimen slightly [id number] 04:13:00 Test Item Value Reference Range Comments PARTIAL THROMBOPLASTIN TIME (BEAKER) (test 72.1 seconds 22.5-36.0 aapn=758) BLOOD GAS, [id number] 04:13:00 Test Item Value Reference Range Comments PH ARTERIAL (BEAKER) (test avzy=618) 7.39 7.35-7.45 PCO2 ARTERIAL (BEAKER) (test uobg=976) 48 mmHg 35-45 PO2 ARTERIAL (BEAKER) (test igqi=565) 151 mmHg 80-90 O2 SATURATION ARTERIAL (BEAKER) (test euvh=516) 98.9 % 96.0-97.0 HCO3 ARTERIAL (BEAKER) (test fdho=933) 28 mmol/L 21-29 BASE EXCESS ARTERIAL (BEAKER) (test fxba=507) 3.1 mmol/L -2.0-3.0 PATIENT TEMPERATURE (BEAKER) (test yrhg=8375) 37.0 C FIO2 (BEAKER) (test fvxu=3944) 100.0 % POCT-GLUCOSE [id number] 00:08:00 Test Item Value Reference Range Comments POC-GLUCOSE METER (BEAKER) 150 mg/dL 70-110 TESTED AT [address] (test svmt=3831) [place] [id number] POCT-GLUCOSE [id number] 18:45:00 Test Item Value Reference Range Comments POC-GLUCOSE METER (BEAKER) 162 mg/dL 70-110 TESTED AT [address] (test bkfh=6411) [facility] [address] POCT-GLUCOSE [id number] 13:14:00 Test Item Value Reference Range Comments POC-GLUCOSE METER (BEAKER) 176 mg/dL 70-110 TESTED AT [address] (test smsv=0289) [place] [address] POCT-GLUCOSE [id number] 10:44:00 Test Item Value Reference Range Comments POC-GLUCOSE METER (BEAKER) 146 mg/dL 70-110 TESTED AT [address] (test lhgl=1176) [facility] [address] BLOOD GAS, [id number] 10:32:00 Test Item Value Reference Range Comments PH ARTERIAL (BEAKER) (test qfvt=166) 7.44 7.35-7.45 PCO2 ARTERIAL (BEAKER) (test ppyu=292) 45 mmHg 35-45 PO2 ARTERIAL (BEAKER) (test tixs=686) 145 mmHg 80-90 O2 SATURATION ARTERIAL (BEAKER) (test jmev=485) 98.9 % 96.0-97.0 HCO3 ARTERIAL (BEAKER) (test kgan=273) 30 mmol/L 21-29 BASE EXCESS ARTERIAL (BEAKER) (test jhro=436) 4.6 mmol/L -2.0-3.0 PATIENT TEMPERATURE (BEAKER) (test xoqh=0070) 36.5 C FIO2 (BEAKER) (test yhrm=4682) 40.0 % RAD, CHEST, 1 VIEW, NON [id number] 09:14:00Reason for exam:->ptxShould this be performed at [...] Verified Date/Time: 01/23/2018 09 :14:48 Reading Location: [facility] Radiology Reading Room BLOOD [id number] 08: 09:00 Test Item Value Reference Range Comments CULTURE (BEAKER) From Aerobic Bottle Only (test ffbl=3853) Lactobacillus species GRAM STAIN RESULT From aerobic bottle (BEAKER) (test only: gram positive fdif=9758) rods NOT DETECTEDPanel is negative for ProxinoFire BCID-detectable organisms. Please refer to traditional culture and sensitivity results as they become available.Other organisms and resistance markers not contained in this PCR panel cannot be excluded and follow-up of traditional culture results is required.This sample was tested at the [facility] Clinical Microbiology Laboratory using the [employer] Film[employer] Blood Culture ID Panel. This test is FDA cleared for in vitro diagnostic use and has been verified and approved by the [facility] Clinical Microbiology laboratory for clinical use. Reference Range: Not DetectedBLOOD GAS, [id number] 04:45:00 Test Item Value Reference Range Comments PH ARTERIAL (BEAKER) (test yllw=283) 7.42 7.35-7.45 PCO2 ARTERIAL (BEAKER) (test uygp=445) 46 mmHg 35-45 PO2 ARTERIAL (BEAKER) (test rgiq=350) 192 mmHg 80-90 O2 SATURATION ARTERIAL (BEAKER) (test foyy=492) 99.3 % 96.0-97.0 HCO3 ARTERIAL (BEAKER) (test jczm=790) 29 mmol/L 21-29 BASE EXCESS ARTERIAL (BEAKER) (test yxyn=394) 4.2 mmol/L -2.0-3.0 PATIENT TEMPERATURE (BEAKER) (test rgvn=1252) 37.0 C FIO2 (BEAKER) (test jeli=8470) 40.0 % BASIC METABOLIC [id number] 04:39:00 Test Item Value Reference Range Comments SODIUM (BEAKER) (test 137 meq/L 136-145 xxml=612) POTASSIUM (BEAKER) (test 3.8 meq/L 3.5-5.1 hjuu=907) CHLORIDE (BEAKER) (test 100 meq/L 98-107 zyek=348) CO2 (BEAKER) (test 26 meq/L 22-29 nwqi=824) BLOOD UREA NITROGEN 39 mg/dL 7-21 (BEAKER) (test oxun=269) CREATININE (BEAKER) (test 3.80 mg/dL 0.57-1.25 fqtd=248) GLUCOSE RANDOM (BEAKER) 137 mg/dL 70-105 (test jzgj=554) CALCIUM (BEAKER) (test 8.1 mg/dL 8.4-10.2 ooqp=925) EGFR (BEAKER) (test 20 mL/min/1.73 sq m ESTIMATED GFR IS NOT oidv=1919) ACCURATE CREATININE CLEARANCE IN PREDICTING GLOMERULAR FILTRATION RATE. ESTIMATED GFR IS NOT APPLICABLE FOR DIALYSIS PATIENTS. Specimen slightly [id number] 04:35:00 Test Item Value Reference Range Comments MAGNESIUM (BEAKER) (test acwu=262) 1.8 mg/dL 1.6-2.6 HEPATIC FUNCTION [id number] 04:35:00 Test Item Value Reference Range Comments TOTAL PROTEIN (BEAKER) (test ovvh=581) 4.8 gm/dL 6.0-8.3 ALBUMIN (BEAKER) (test pilm=9487) 2.3 g/dL 3.5-5.0 BILIRUBIN TOTAL (BEAKER) (test uizp=938) 4.2 mg/dL 0.2-1.2 BILIRUBIN DIRECT (BEAKER) (test agwq=652) 3.5 mg/dL 0.1-0.5 ALKALINE PHOSPHATASE (BEAKER) (test ddna=105) 64 U/L 40-150 AST (SGOT) (BEAKER) (test kpfe=959) 33 U/L 5-34 ALT (SGPT) (BEAKER) (test paii=804) 40 U/L 6-55 Specimen slightly [id number] 04:18:00 Test Item Value Reference Range Comments PARTIAL THROMBOPLASTIN TIME (BEAKER) (test 68.0 seconds 22.5-36.0 xkgm=051) CBC (HEMOGRAM ONLY)2018-01-23 04:10:00 Test Item Value Reference Range Comments WHITE BLOOD CELL COUNT (BEAKER) (test ocvj=344) 17.0 K/ L 3.5-10.5 RED BLOOD CELL COUNT (BEAKER) (test dbrb=058) 2.48 M/ L 4.63-6.08 HEMOGLOBIN (BEAKER) (test xvhj=261) 7.7 GM/DL 13.7-17.5 HEMATOCRIT (BEAKER) (test vxuh=530) 23.4 % 40.1-51.0 MEAN CORPUSCULAR VOLUME (BEAKER) (test yfnb=608) 94.4 fL 79.0-92.2 MEAN CORPUSCULAR HEMOGLOBIN (BEAKER) (test 31.0 pg 25.7-32.2 slzr=737) MEAN CORPUSCULAR HEMOGLOBIN CONC (BEAKER) (test 32.9 GM/DL 32.3-36.5 oqus=569) RED CELL DISTRIBUTION WIDTH (BEAKER) (test 20.4 % 11.6-14.4 mbum=546) PLATELET COUNT (BEAKER) (test nryf=185) 85 K/CU MM 150-450 MEAN PLATELET VOLUME (BEAKER) (test gkkq=941) 10.1 fL 9.4-12.4 NUCLEATED RED BLOOD CELLS (BEAKER) (test 0 /100 WBC 0-0 ubho=797) POCT-GLUCOSE [id number] 00:52:00 Test Item Value Reference Range Comments POC-GLUCOSE METER (BEAKER) 145 mg/dL 70-110 TESTED AT [facility] [address] [facility] (test pyeb=8003) [facility] [address] BLOOD [id number] 00:00:00 Test Item Value Reference Range Comments CULTURE (BEAKER) (test htbh=0651) No growth in 5 days POCT-GLUCOSE [id number] 18:17:00 Test Item Value Reference Range Comments POC-GLUCOSE METER (BEAKER) 97 mg/dL 70-110 TESTED AT [address] (test uiru=2804) [facility] [address] POCT-GLUCOSE [id number] 13:26:00 Test Item Value Reference Range Comments POC-GLUCOSE METER (BEAKER) 138 mg/dL 70-110 TESTED AT [address] (test dobj=4324) [place] [id number] BLOOD GAS, [id number] 10:32:00 Test Item Value Reference Range Comments PH ARTERIAL (BEAKER) (test lrfi=679) 7.43 7.35-7.45 PCO2 ARTERIAL (BEAKER) (test uwok=519) 39 mmHg 35-45 PO2 ARTERIAL (BEAKER) (test csow=226) 145 mmHg 80-90 O2 SATURATION ARTERIAL (BEAKER) (test qffp=815) 98.9 % 96.0-97.0 HCO3 ARTERIAL (BEAKER) (test hvps=281) 25 mmol/L 21-29 BASE EXCESS ARTERIAL (BEAKER) (test apkm=987) 0.7 mmol/L -2.0-3.0 PATIENT TEMPERATURE (BEAKER) (test cknp=5003) 37.0 C FIO2 (BEAKER) (test uxqs=1174) 40.0 % POCT-GLUCOSE [id number] 06:21:00 Test Item Value Reference Range Comments POC-GLUCOSE METER (BEAKER) 138 mg/dL 70-110 TESTED AT [address] (test ufxx=9650) [place] [id number] BASIC METABOLIC [id number] 04:25:00 Test Item Value Reference Range Comments SODIUM (BEAKER) (test 135 meq/L 136-145 traq=723) POTASSIUM (BEAKER) (test 4.1 meq/L 3.5-5.1 ufgr=837) CHLORIDE (BEAKER) (test 98 meq/L 98-107 uytx=025) CO2 (BEAKER) (test 24 meq/L 22-29 ckmm=273) BLOOD UREA NITROGEN 76 mg/dL 7-21 (BEAKER) (test jzyj=003) CREATININE (BEAKER) (test 5.57 mg/dL 0.57-1.25 zarh=199) GLUCOSE RANDOM (BEAKER) 120 mg/dL 70-105 (test nbpk=028) CALCIUM (BEAKER) (test 7.8 mg/dL 8.4-10.2 pcyq=098) EGFR (BEAKER) (test 13 mL/min/1.73 sq m ESTIMATED GFR IS NOT kbpy=8272) ACCURATE CREATININE CLEARANCE IN PREDICTING GLOMERULAR FILTRATION RATE. ESTIMATED GFR IS NOT APPLICABLE FOR DIALYSIS PATIENTS. Specimen slightly [id number] 04:24:00 Test Item Value Reference Range Comments MAGNESIUM (BEAKER) (test lrpn=905) 2.1 mg/dL 1.6-2.6 HEPATIC FUNCTION [id number] 04:24:00 Test Item Value Reference Range Comments TOTAL PROTEIN (BEAKER) (test vkyc=903) 4.2 gm/dL 6.0-8.3 ALBUMIN (BEAKER) (test ddus=4313) 2.1 g/dL 3.5-5.0 BILIRUBIN TOTAL (BEAKER) (test eayn=856) 4.3 mg/dL 0.2-1.2 BILIRUBIN DIRECT (BEAKER) (test mcdb=883) 3.7 mg/dL 0.1-0.5 ALKALINE PHOSPHATASE (BEAKER) (test fyqa=677) 48 U/L 40-150 AST (SGOT) (BEAKER) (test dich=296) 33 U/L 5-34 ALT (SGPT) (BEAKER) (test bmtj=722) 42 U/L 6-55 Specimen slightly ictericCBC (HEMOGRAM ONLY)2018-01-22 04:18:00 Test Item Value Reference Range Comments WHITE BLOOD CELL COUNT (BEAKER) (test mgfn=444) 14.2 K/ L 3.5-10.5 RED BLOOD CELL COUNT (BEAKER) (test rvos=209) 2.34 M/ L 4.63-6.08 HEMOGLOBIN (BEAKER) (test ulhh=771) 7.3 GM/DL 13.7-17.5 HEMATOCRIT (BEAKER) (test hjoa=434) 21.6 % 40.1-51.0 MEAN CORPUSCULAR VOLUME (BEAKER) (test zpuc=343) 92.3 fL 79.0-92.2 MEAN CORPUSCULAR HEMOGLOBIN (BEAKER) (test 31.2 pg 25.7-32.2 fbqg=590) MEAN CORPUSCULAR HEMOGLOBIN CONC (BEAKER) (test 33.8 GM/DL 32.3-36.5 apst=253) RED CELL DISTRIBUTION WIDTH (BEAKER) (test 20.3 % 11.6-14.4 gsdx=527) PLATELET COUNT (BEAKER) (test czwe=012) 78 K/CU MM 150-450 MEAN PLATELET VOLUME (BEAKER) (test sblg=745) 11.0 fL 9.4-12.4 NUCLEATED RED BLOOD CELLS (BEAKER) (test 0 /100 WBC 0-0 yrzc=182) [id number] 04:07:00 Test Item Value Reference Range Comments PARTIAL THROMBOPLASTIN TIME (BEAKER) (test 80.2 seconds 22.5-36.0 rwht=631) BLOOD GAS, [id number] 04:06:00 Test Item Value Reference Range Comments PH ARTERIAL (BEAKER) (test viez=334) 7.44 7.35-7.45 PCO2 ARTERIAL (BEAKER) (test fulo=216) 40 mmHg 35-45 PO2 ARTERIAL (BEAKER) (test clqr=881) 128 mmHg 80-90 O2 SATURATION ARTERIAL (BEAKER) (test zoih=596) 98.7 % 96.0-97.0 HCO3 ARTERIAL (BEAKER) (test aqzu=257) 26 mmol/L 21-29 BASE EXCESS ARTERIAL (BEAKER) (test uurk=219) 2.0 mmol/L -2.0-3.0 PATIENT TEMPERATURE (BEAKER) (test hrve=3374) 37.0 C FIO2 (BEAKER) (test qmdw=2869) 40.0 % RAD, CHEST, 1 VIEW, NON [id number] 03:32:00Reason for exam:->ptxShould this be performed at [...] MDReport Verified Date/Time: 01/22/2018 03:32:38 Reading Location: [facility] [address] Body Reading Room POCT-GLUCOSE [id number] 00:43:00 Test Item Value Reference Range Comments POC-GLUCOSE METER (BEAKER) 102 mg/dL 70-110 TESTED AT [address] (test hdoe=3978) [facility] [address] [id number] 17:31:00 Test Item Value Reference Range Comments PARTIAL THROMBOPLASTIN TIME (BEAKER) (test 65.0 seconds 22.5-36.0 bupk=998) POCT-GLUCOSE [id number] 17:24:00 Test Item Value Reference Range Comments POC-GLUCOSE METER (BEAKER) 171 mg/dL 70-110 TESTED AT [address] (test rsua=9849) [facility] [address] POCT-GLUCOSE [id number] 13:01:00 Test Item Value Reference Range Comments POC-GLUCOSE METER (BEAKER) 144 mg/dL 70-110 TESTED AT [address] (test qkbn=3435) [facility] [address] [id number] 11:12:00 Test Item Value Reference Range Comments PARTIAL THROMBOPLASTIN TIME (BEAKER) (test 67.9 seconds 22.5-36.0 rjwq=211) RAD, CHEST, 1 VIEW, NON [id number] 08:01:00Reason for exam:->ptxShould this be performed at [...] Location: [facility] Reading Room POCT-GLUCOSE [id number] 06:50:00 Test Item Value Reference Range Comments POC-GLUCOSE METER (BEAKER) 149 mg/dL 70-110 TESTED AT [facility] [address] [facility] (test nwbe=6549) [facility] [id number] CBC (HEMOGRAM ONLY)2018-01-21 04:20:00 Test Item Value Reference Range Comments WHITE BLOOD CELL COUNT (BEAKER) (test sdzh=986) 16.6 K/ L 3.5-10.5 RED BLOOD CELL COUNT (BEAKER) (test vljm=431) 2.13 M/ L 4.63-6.08 HEMOGLOBIN (BEAKER) (test jnuo=067) 6.8 GM/DL 13.7-17.5 HEMATOCRIT (BEAKER) (test wvro=365) 20.2 % 40.1-51.0 MEAN CORPUSCULAR VOLUME (BEAKER) (test iiwq=738) 94.8 fL 79.0-92.2 MEAN CORPUSCULAR HEMOGLOBIN (BEAKER) (test 31.9 pg 25.7-32.2 ipiq=760) MEAN CORPUSCULAR HEMOGLOBIN CONC (BEAKER) (test 33.7 GM/DL 32.3-36.5 wbgb=100) RED CELL DISTRIBUTION WIDTH (BEAKER) (test 19.5 % 11.6-14.4 fggw=786) PLATELET COUNT (BEAKER) (test hhpn=546) 88 K/CU MM 150-450 MEAN PLATELET VOLUME (BEAKER) (test zoqa=232) 10.6 fL 9.4-12.4 NUCLEATED RED BLOOD CELLS (BEAKER) (test 0 /100 WBC 0-0 brgh=904) [id number] 04:03:00 Test Item Value Reference Range Comments PARTIAL THROMBOPLASTIN TIME (BEAKER) (test 51.2 seconds 22.5-36.0 havh=294) BASIC METABOLIC [id number] 04:01:00 Test Item Value Reference Range Comments SODIUM (BEAKER) (test 137 meq/L 136-145 ldvz=107) POTASSIUM (BEAKER) (test 3.8 meq/L 3.5-5.1 rmlf=147) CHLORIDE (BEAKER) (test 99 meq/L 98-107 rjow=639) CO2 (BEAKER) (test 28 meq/L 22-29 trux=824) BLOOD UREA NITROGEN 50 mg/dL 7-21 (BEAKER) (test lyge=779) CREATININE (BEAKER) (test 3.75 mg/dL 0.57-1.25 zdzd=212) GLUCOSE RANDOM (BEAKER) 90 mg/dL 70-105 (test eiyq=078) CALCIUM (BEAKER) (test 7.9 mg/dL 8.4-10.2 qlyi=387) EGFR (BEAKER) (test 20 mL/min/1.73 sq m ESTIMATED GFR IS NOT gndp=4211) ACCURATE CREATININE CLEARANCE IN PREDICTING GLOMERULAR FILTRATION RATE. ESTIMATED GFR IS NOT APPLICABLE FOR DIALYSIS PATIENTS. Specimen moderately [id number] 03:59:00 Test Item Value Reference Range Comments MAGNESIUM (BEAKER) (test htqe=570) 2.0 mg/dL 1.6-2.6 HEPATIC FUNCTION [id number] 03:59:00 Test Item Value Reference Range Comments TOTAL PROTEIN (BEAKER) (test cfnk=161) 4.5 gm/dL 6.0-8.3 ALBUMIN (BEAKER) (test vfla=3179) 2.2 g/dL 3.5-5.0 BILIRUBIN TOTAL (BEAKER) (test tnpg=083) 6.0 mg/dL 0.2-1.2 BILIRUBIN DIRECT (BEAKER) (test fwrl=827) 5.1 mg/dL 0.1-0.5 ALKALINE PHOSPHATASE (BEAKER) (test mtnb=941) 48 U/L 40-150 AST (SGOT) (BEAKER) (test qolz=563) 32 U/L 5-34 ALT (SGPT) (BEAKER) (test ukik=246) 51 U/L 6-55 Specimen moderately ictericVANCOMYCIN LEVEL, [id number] 03:57:00 Test Item Value Reference Range Comments VANCOMYCIN RANDOM (BEAKER) (test cesk=254) 18.3 ug/mL Reference Range: No NormalsOXYGEN SATURATION, [id number] 03:32:00 Test Item Value Reference Range Comments O2 SATURATION (MEASURED) (BEAKER) (test hkcj=2892) 86.3 % BLOOD GAS, [id number] 03:30:00 Test Item Value Reference Range Comments PH ARTERIAL (BEAKER) (test zwqg=733) 7.50 7.35-7.45 PCO2 ARTERIAL (BEAKER) (test vgdf=506) 38 mmHg 35-45 PO2 ARTERIAL (BEAKER) (test fdgc=449) 142 mmHg 80-90 O2 SATURATION ARTERIAL (BEAKER) (test gowa=402) 99.0 % 96.0-97.0 HCO3 ARTERIAL (BEAKER) (test dkwn=289) 29 mmol/L 21-29 BASE EXCESS ARTERIAL (BEAKER) (test bwvc=645) 5.4 mmol/L -2.0-3.0 PATIENT TEMPERATURE (BEAKER) (test wiea=4733) 37.5 C FIO2 (BEAKER) (test oaxg=4923) 40.0 % POCT-GLUCOSE [id number] 23:43:00 Test Item Value Reference Range Comments POC-GLUCOSE METER (BEAKER) 143 mg/dL 70-110 TESTED AT [address] (test tlmi=8466) [place] [address] BLOOD [id number] 18:00:00 Test Item Value Reference Range Comments CULTURE (BEAKER) (test fupe=2787) No growth in 5 days BLOOD [id number] 18:00:00 Test Item Value Reference Range Comments CULTURE (BEAKER) (test pjyx=6980) No growth in 5 days POCT-GLUCOSE [id number] 16:32:00 Test Item Value Reference Range Comments POC-GLUCOSE METER (BEAKER) 185 mg/dL 70-110 TESTED AT [address] (test tpbu=7851) [place] [address] MISCELLANEOUS LAB [id number] 15:04:00 Test Item Value Reference Range Comments SCAN RESULT (test cumo=[id number]) Result comments: NOT DETECTED Panel is negative for [employer] BCID-detectable organisms. Please refer to traditional culture and sensitivity results as they become available. Other organisms and resistance markers not contained in this PCR panel cannot be excluded and follow-up of traditional culture results is required. This sample was tested at the [facility] Clinical Microbiology Laboratory using the [employer] Blood Culture ID Panel. This test is FDA cleared for in vitro diagnostic use and hasbeen verified and approved by the [facility] Clinical Microbiology laboratory for clinical use. ReferenceRange: Not DetectedPOCT-GLUCOSE [id number] 12:25:00 Test Item Value Reference Range Comments POC-GLUCOSE METER (BEAKER) 116 mg/dL 70-110 TESTED AT [address] (test zvwu=6706) [facility] [address] RAD, CHEST, 1 VIEW, NON [id number] 06:38:00Reason for exam:->pl effusionShould this be performed [...] MDReport Verified Date/Time: 01/20/2018 06:38:33 Reading Location: [address] Body Reading Room POCT-GLUCOSE [id number] 05:54:00 Test Item Value Reference Range Comments POC-GLUCOSE METER (BEAKER) 231 mg/dL 70-110 TESTED AT [address] (test biyw=9058) [facility] [address] VANCOMYCIN LEVEL, [id number] 04:23:00 Test Item Value Reference Range Comments VANCOMYCIN RANDOM (BEAKER) (test xgvh=199) 25.8 ug/mL Reference Range: No [id number] 04:17:00 Test Item Value Reference Range Comments MAGNESIUM (BEAKER) (test btbc=886) 2.0 mg/dL 1.6-2.6 HEPATIC FUNCTION [id number] 04:17:00 Test Item Value Reference Range Comments TOTAL PROTEIN (BEAKER) (test cusu=151) 4.8 gm/dL 6.0-8.3 ALBUMIN (BEAKER) (test ilnh=3265) 2.3 g/dL 3.5-5.0 BILIRUBIN TOTAL (BEAKER) (test afgo=080) 7.1 mg/dL 0.2-1.2 BILIRUBIN DIRECT (BEAKER) (test dndt=493) 6.0 mg/dL 0.1-0.5 ALKALINE PHOSPHATASE (BEAKER) (test ayrq=025) 53 U/L 40-150 AST (SGOT) (BEAKER) (test vvzu=328) 27 U/L 5-34 ALT (SGPT) (BEAKER) (test frwc=101) 65 U/L 6-55 Specimen moderately ictericBASIC METABOLIC [id number] 04:17:00 Test Item Value Reference Range Comments SODIUM (BEAKER) (test 130 meq/L 136-145 brfb=992) POTASSIUM (BEAKER) (test 4.9 meq/L 3.5-5.1 ffzk=117) CHLORIDE (BEAKER) (test 94 meq/L 98-107 stza=317) CO2 (BEAKER) (test 23 meq/L 22-29 hlam=715) BLOOD UREA NITROGEN 76 mg/dL 7-21 (BEAKER) (test gaqe=359) CREATININE (BEAKER) (test 4.93 mg/dL 0.57-1.25 wetp=462) GLUCOSE RANDOM (BEAKER) 203 mg/dL 70-105 (test fufu=312) CALCIUM (BEAKER) (test 7.9 mg/dL 8.4-10.2 japd=416) EGFR (BEAKER) (test 15 mL/min/1.73 sq m ESTIMATED GFR IS NOT rhjq=4383) ACCURATE CREATININE CLEARANCE IN PREDICTING GLOMERULAR FILTRATION RATE. ESTIMATED GFR IS NOT APPLICABLE FOR DIALYSIS PATIENTS. Specimen moderately [id number] 04:05:00 Test Item Value Reference Range Comments PARTIAL THROMBOPLASTIN TIME (BEAKER) (test 69.7 seconds 22.5-36.0 cbpk=677) CBC W/PLT COUNT & AUTO [id number] 03:49:00 Test Item Value Reference Range Comments WHITE BLOOD CELL COUNT (BEAKER) (test pwnn=982) 16.1 K/ L 3.5-10.5 RED BLOOD CELL COUNT (BEAKER) (test frwu=236) 2.30 M/ L 4.63-6.08 HEMOGLOBIN (BEAKER) (test ptai=183) 7.4 GM/DL 13.7-17.5 HEMATOCRIT (BEAKER) (test ikuh=160) 22.2 % 40.1-51.0 MEAN CORPUSCULAR VOLUME (BEAKER) (test pzgv=487) 96.5 fL 79.0-92.2 MEAN CORPUSCULAR HEMOGLOBIN (BEAKER) (test 32.2 pg 25.7-32.2 bbmy=695) MEAN CORPUSCULAR HEMOGLOBIN CONC (BEAKER) (test 33.3 GM/DL 32.3-36.5 dyrr=618) RED CELL DISTRIBUTION WIDTH (BEAKER) (test 19.2 % 11.6-14.4 zijl=005) PLATELET COUNT (BEAKER) (test uawe=637) 71 K/CU MM 150-450 MEAN PLATELET VOLUME (BEAKER) (test vlwt=660) 10.8 fL 9.4-12.4 NUCLEATED RED BLOOD CELLS (BEAKER) (test 1 /100 WBC 0-0 lfzq=659) NEUTROPHILS RELATIVE PERCENT (BEAKER) (test 90 % oplt=655) LYMPHOCYTES RELATIVE PERCENT (BEAKER) (test 2 % leyg=790) MONOCYTES RELATIVE PERCENT (BEAKER) (test 5 % ytzt=993) EOSINOPHILS RELATIVE PERCENT (BEAKER) (test 0 % ojbc=142) BASOPHILS RELATIVE PERCENT (BEAKER) (test 0 % sxwx=714) NEUTROPHILS ABSOLUTE COUNT (BEAKER) (test 14.52 K/ L 1.78-5.38 ndvr=676) LYMPHOCYTES ABSOLUTE COUNT (BEAKER) (test 0.33 K/ L 1.32-3.57 chmu=879) MONOCYTES ABSOLUTE COUNT (BEAKER) (test bhop=321) 0.86 K/ L 0.30-0.82 EOSINOPHILS ABSOLUTE COUNT (BEAKER) (test 0.00 K/ L 0.04-0.54 zvgg=655) BASOPHILS ABSOLUTE COUNT (BEAKER) (test ismp=559) 0.01 K/ L 0.01-0.08 IMMATURE GRANULOCYTES-RELATIVE PERCENT (BEAKER) 3 % 0-1 (test cllh=1880) OXYGEN SATURATION, [id number] 03:48:00 Test Item Value Reference Range Comments O2 SATURATION (MEASURED) (BEAKER) (test ebzl=1867) 84.1 % POCT-GLUCOSE [id number] 23:14:00 Test Item Value Reference Range Comments POC-GLUCOSE METER (BEAKER) 248 mg/dL 70-110 TESTED AT [address] (test twlv=6663) [facility] [address] POCT-GLUCOSE [id number] 18:56:00 Test Item Value Reference Range Comments POC-GLUCOSE METER (BEAKER) 213 mg/dL 70-110 TESTED AT [address] (test tjbp=1737) [place] [id number] POCT-GLUCOSE [id number] 14:06:00 Test Item Value Reference Range Comments POC-GLUCOSE METER (BEAKER) 210 mg/dL 70-110 TESTED AT [address] (test kwxy=5760) [place] [id number] SPUTUM CULTURE + GRAM [id number] 13:45:00 Test Item Value Reference Range Comments CULTURE (BEAKER) (test 4+ Normal respiratory pete xfev=0209) present GRAM STAIN RESULT (BEAKER) 4+ WBCs (test vdhi=1239) GRAM STAIN RESULT (BEAKER) 0-5 epithelial cells (test rcxs=18744) GRAM STAIN RESULT (BEAKER) 3+ gram negative rods (test zoot=88895) GRAM STAIN RESULT (BEAKER) 2+ gram positive cocci in pairs (test mgdd=058078) and clusters [id number] 12:37:00 Test Item Value Reference Range Comments PARTIAL THROMBOPLASTIN TIME (BEAKER) (test 74.3 seconds 22.5-36.0 yajn=761) CBC W/PLT COUNT & AUTO [id number] 10:52:00 Test Item Value Reference Range Comments WHITE BLOOD CELL COUNT (BEAKER) (test elew=363) 17.8 K/ L 3.5-10.5 RED BLOOD CELL COUNT (BEAKER) (test iknz=589) 2.54 M/ L 4.63-6.08 HEMOGLOBIN (BEAKER) (test quqb=261) 8.0 GM/DL 13.7-17.5 HEMATOCRIT (BEAKER) (test nzcr=856) 24.6 % 40.1-51.0 MEAN CORPUSCULAR VOLUME (BEAKER) (test aknr=344) 96.9 fL 79.0-92.2 MEAN CORPUSCULAR HEMOGLOBIN (BEAKER) (test 31.5 pg 25.7-32.2 zdpm=372) MEAN CORPUSCULAR HEMOGLOBIN CONC (BEAKER) (test 32.5 GM/DL 32.3-36.5 cwgq=049) RED CELL DISTRIBUTION WIDTH (BEAKER) (test 19.5 % 11.6-14.4 lfcz=104) PLATELET COUNT (BEAKER) (test uvup=767) 61 K/CU MM 150-450 MEAN PLATELET VOLUME (BEAKER) (test yrlt=852) 10.8 fL 9.4-12.4 NUCLEATED RED BLOOD CELLS (BEAKER) (test 2 /100 WBC 0-0 dkpa=544) VANCOMYCIN LEVEL, [id number] 05:41:00 Test Item Value Reference Range Comments VANCOMYCIN RANDOM (BEAKER) (test hllq=426) 27.9 ug/mL Reference Range: No NormalsBASIC METABOLIC [id number] 05:39:00 Test Item Value Reference Range Comments SODIUM (BEAKER) (test 134 meq/L 136-145 jyuv=488) POTASSIUM (BEAKER) (test 4.5 meq/L 3.5-5.1 ekbh=567) CHLORIDE (BEAKER) (test 98 meq/L 98-107 dtxt=363) CO2 (BEAKER) (test 26 meq/L 22-29 fysj=929) BLOOD UREA NITROGEN 41 mg/dL 7-21 (BEAKER) (test jyap=871) CREATININE (BEAKER) (test 3.08 mg/dL 0.57-1.25 eaur=747) GLUCOSE RANDOM (BEAKER) 192 mg/dL 70-105 (test twxn=423) CALCIUM (BEAKER) (test 8.0 mg/dL 8.4-10.2 hgzt=060) EGFR (BEAKER) (test 25 mL/min/1.73 sq m ESTIMATED GFR IS NOT bcqw=4173) ACCURATE CREATININE CLEARANCE IN PREDICTING GLOMERULAR FILTRATION RATE. ESTIMATED GFR IS NOT APPLICABLE FOR DIALYSIS PATIENTS. Specimen moderately [id number] 05:36:00 Test Item Value Reference Range Comments MAGNESIUM (BEAKER) (test fizc=905) 2.0 mg/dL 1.6-2.6 [id number] 05:36:00 Test Item Value Reference Range Comments PHOSPHORUS (BEAKER) (test axdw=379) 3.9 mg/dL 2.3-4.7 HEPATIC FUNCTION [id number] 05:36:00 Test Item Value Reference Range Comments TOTAL PROTEIN (BEAKER) (test peie=056) 4.8 gm/dL 6.0-8.3 ALBUMIN (BEAKER) (test gccm=5715) 2.5 g/dL 3.5-5.0 BILIRUBIN TOTAL (BEAKER) (test fimj=743) 7.7 mg/dL 0.2-1.2 BILIRUBIN DIRECT (BEAKER) (test pszw=028) 6.3 mg/dL 0.1-0.5 ALKALINE PHOSPHATASE (BEAKER) (test usrj=282) 57 U/L 40-150 AST (SGOT) (BEAKER) (test yoiv=517) 43 U/L 5-34 ALT (SGPT) (BEAKER) (test jdvg=580) 106 U/L 6-55 Specimen moderately ictericOXYGEN SATURATION, [id number] 05:33:00 Test Item Value Reference Range Comments O2 SATURATION (MEASURED) (BEAKER) (test surq=6885) 87.0 % CBC (HEMOGRAM ONLY)2018-01-19 05:25:00 Test Item Value Reference Range Comments WHITE BLOOD CELL COUNT (BEAKER) (test csvy=657) 17.8 K/ L 3.5-10.5 RED BLOOD CELL COUNT (BEAKER) (test qoxz=326) 2.54 M/ L 4.63-6.08 HEMOGLOBIN (BEAKER) (test pjuz=784) 8.0 GM/DL 13.7-17.5 HEMATOCRIT (BEAKER) (test oqpg=982) 24.6 % 40.1-51.0 MEAN CORPUSCULAR VOLUME (BEAKER) (test xaes=348) 96.9 fL 79.0-92.2 MEAN CORPUSCULAR HEMOGLOBIN (BEAKER) (test 31.5 pg 25.7-32.2 ecjk=852) MEAN CORPUSCULAR HEMOGLOBIN CONC (BEAKER) (test 32.5 GM/DL 32.3-36.5 xown=867) RED CELL DISTRIBUTION WIDTH (BEAKER) (test 19.5 % 11.6-14.4 twwr=542) PLATELET COUNT (BEAKER) (test tkep=318) 61 K/CU MM 150-450 MEAN PLATELET VOLUME (BEAKER) (test zjfw=517) 10.8 fL 9.4-12.4 NUCLEATED RED BLOOD CELLS (BEAKER) (test 2 /100 WBC 0-0 vxxo=792) [id number] 05:24:00 Test Item Value Reference Range Comments PARTIAL THROMBOPLASTIN TIME (BEAKER) (test 68.1 seconds 22.5-36.0 ulse=154) RAD, CHEST, 1 VIEW, NON [id number] 04:41:00Reason for exam:->pl effusionShould this be performed at the bedside?->YesFINAL REPORT CLINICAL INDICATION: Support lines. Comparison: 01/18/2018 The cardiomediastinal contours are stable. Central pulmonary vascular congestion and bilateral parenchymalopacities are unchanged. There is no pneumothorax. Support lines are stable. Signed: Kellen Parra MDReport Verified Date/Time: 04:41:27 Reading Location: [address] Reading Room [id number] 00:38:00 Test Item Value Reference Range Comments PARTIAL THROMBOPLASTIN TIME (BEAKER) (test 45.5 seconds 22.5-36.0 hnsz=892) POCT-GLUCOSE [id number] 00:21:00 Test Item Value Reference Range Comments POC-GLUCOSE METER (BEAKER) 189 mg/dL 70-110 TESTED AT [address] (test iwmv=6363) [place] [id number] POCT-GLUCOSE [id number] 23:34:00 Test Item Value Reference Range Comments POC-GLUCOSE METER (BEAKER) 162 mg/dL 70-110 TESTED AT [address] (test uobc=8031) [facility] [address] POCT-GLUCOSE [id number] 18:09:00 Test Item Value Reference Range Comments POC-GLUCOSE METER (BEAKER) 172 mg/dL 70-110 TESTED AT [address] (test inrq=7755) [facility] [address] RAD, ABDOMEN/KUB, 1 VIEW [id number] 17:36:00Reason for exam:->ileusShould this be performed at the bedside?->YesFINAL REPORT Comparison: 01/17/2018 TECHNIQUE: Frontal image of the abdomen FINDINGS: There is a nonspecific bowel gas pattern. Tip of nasogastric projects in the distal stomach. No gross free intraperitoneal air. No acute skeletal abnormality. Signed: Kyle Rome MDReport Verified Date/Time: 01/18/2018 17:36:02 Reading Location: [facility] C013 Transitional Reading Room [id number] 17:10:00 Test Item Value Reference Range Comments PARTIAL THROMBOPLASTIN TIME (BEAKER) (test 27.8 seconds 22.5-36.0 gwge=007) Prior to initiating heparinPOCT-GLUCOSE [id number] 15:22:00 Test Item Value Reference Range Comments POC-GLUCOSE METER (BEAKER) 126 mg/dL 70-110 TESTED AT [facility] [address] [facility] (test vabl=8480) [facility] [address] [id number] 13:02:00 Test Item Value Reference Range Comments PHOSPHORUS (BEAKER) (test srbg=171) 3.8 mg/dL 2.3-4.7 BASIC METABOLIC [id number] 13:02:00 Test Item Value Reference Range Comments SODIUM (BEAKER) (test 134 meq/L 136-145 efof=543) POTASSIUM (BEAKER) (test 4.6 meq/L 3.5-5.1 aqpy=170) CHLORIDE (BEAKER) (test 100 meq/L 98-107 oipn=791) CO2 (BEAKER) (test 22 meq/L 22-29 dmto=177) BLOOD UREA NITROGEN 29 mg/dL 7-21 (BEAKER) (test joah=354) CREATININE (BEAKER) (test 2.37 mg/dL 0.57-1.25 xdki=691) GLUCOSE RANDOM (BEAKER) 142 mg/dL 70-105 (test apgy=755) CALCIUM (BEAKER) (test 8.0 mg/dL 8.4-10.2 dzai=882) EGFR (BEAKER) (test 34 mL/min/1.73 sq m ESTIMATED GFR IS NOT vlhv=9785) ACCURATE CREATININE CLEARANCE IN PREDICTING GLOMERULAR FILTRATION RATE. ESTIMATED GFR IS NOT APPLICABLE FOR DIALYSIS PATIENTS. Specimen moderately ictericPOCT-GLUCOSE [id number] 12:11:00 Test Item Value Reference Range Comments POC-GLUCOSE METER (BEAKER) 113 mg/dL 70-110 TESTED AT [facility] [address] (test nbca=5839) [place] [address] CBC W/PLT COUNT & AUTO [id number] 12:03:00 Test Item Value Reference Range Comments WHITE BLOOD CELL COUNT (BEAKER) (test acjx=828) 15.4 K/ L 3.5-10.5 RED BLOOD CELL COUNT (BEAKER) (test tdrg=367) 2.63 M/ L 4.63-6.08 HEMOGLOBIN (BEAKER) (test hlqb=975) 8.4 GM/DL 13.7-17.5 HEMATOCRIT (BEAKER) (test mxmy=271) 25.8 % 40.1-51.0 MEAN CORPUSCULAR VOLUME (BEAKER) (test gxds=394) 98.1 fL 79.0-92.2 MEAN CORPUSCULAR HEMOGLOBIN (BEAKER) (test 31.9 pg 25.7-32.2 psyb=194) MEAN CORPUSCULAR HEMOGLOBIN CONC (BEAKER) (test 32.6 GM/DL 32.3-36.5 jbpk=437) RED CELL DISTRIBUTION WIDTH (BEAKER) (test 19.5 % 11.6-14.4 eonw=287) PLATELET COUNT (BEAKER) (test urvb=268) 65 K/CU MM 150-450 MEAN PLATELET VOLUME (BEAKER) (test yeuu=405) 10.9 fL 9.4-12.4 NUCLEATED RED BLOOD CELLS (BEAKER) (test 7 /100 WBC 0-0 kpxn=273) RAD, CHEST, 1 VIEW, NON [id number] 09:44:00Reason for exam:->pl effusionShould this be performed [...] Verified Date /Time: 01/18/2018 09:44:26 Reading Location: [address] Transitional Reading Room SPUTUM CULTURE + GRAM [id number] 08:09:00 Test Item Value Reference Range Comments CULTURE (BEAKER) (test 3+ Normal respiratory pete rgrq=3675) present GRAM STAIN RESULT (BEAKER) 4+ WBCs (test syaa=0068) GRAM STAIN RESULT (BEAKER) 0-5 epithelial cells (test fity=88265) GRAM STAIN RESULT (BEAKER) No organisms seen (test gjic=50571) POCT-GLUCOSE [id number] 07:52:00 Test Item Value Reference Range Comments POC-GLUCOSE METER (BEAKER) 146 mg/dL 70-110 TESTED AT [address] (test wrij=7585) [facility] [address] POCT-GLUCOSE [id number] 06:30:00 Test Item Value Reference Range Comments POC-GLUCOSE METER (BEAKER) 135 mg/dL 70-110 TESTED AT [address] (test wcqe=9384) [facility] [address] POCT-GLUCOSE [id number] 06:30:00 Test Item Value Reference Range Comments POC-GLUCOSE METER (BEAKER) 130 mg/dL 70-110 TESTED AT [address] (test xanw=5934) [facility] [address] [id number] 03:56:00 Test Item Value Reference Range Comments PHOSPHORUS (BEAKER) (test uxdc=040) 3.1 mg/dL 2.3-4.7 [id number] 03:56:00 Test Item Value Reference Range Comments MAGNESIUM (BEAKER) (test lles=414) 2.0 mg/dL 1.6-2.6 HEPATIC FUNCTION [id number] 03:56:00 Test Item Value Reference Range Comments TOTAL PROTEIN (BEAKER) (test fvim=933) 4.8 gm/dL 6.0-8.3 ALBUMIN (BEAKER) (test wnlm=0593) 2.5 g/dL 3.5-5.0 BILIRUBIN TOTAL (BEAKER) (test vzcj=052) 8.5 mg/dL 0.2-1.2 BILIRUBIN DIRECT (BEAKER) (test catr=029) 7.1 mg/dL 0.1-0.5 ALKALINE PHOSPHATASE (BEAKER) (test jfgz=882) 57 U/L 40-150 AST (SGOT) (BEAKER) (test jqar=673) 45 U/L 5-34 ALT (SGPT) (BEAKER) (test juxc=563) 155 U/L 6-55 Specimen moderately ictericVANCOMYCIN LEVEL, [id number] 03:53:00 Test Item Value Reference Range Comments VANCOMYCIN RANDOM (BEAKER) (test yzln=588) 18.0 ug/mL Reference Range: No [id number] 03:48:00 Test Item Value Reference Range Comments CALCIUM (BEAKER) (test dqyw=646) 8.1 mg/dL 8.4-10.2 CALCIUM, [id number] 03:34:00 Test Item Value Reference Range Comments CALCIUM IONIZED (BEAKER) (test jtdn=372) 1.06 mmol/L 1.12-1.27 PH, BLOOD (BEAKER) (test eebt=0765) 7.38 OXYGEN SATURATION, [id number] 03:33:00 Test Item Value Reference Range Comments O2 SATURATION (MEASURED) (BEAKER) (test fyjr=7129) 85.8 % POCT-GLUCOSE [id number] 03:26:00 Test Item Value Reference Range Comments POC-GLUCOSE METER (BEAKER) 144 mg/dL 70-110 TESTED AT [address] (test rxuo=9189) [facility] [address] POCT-GLUCOSE [id number] 03:26:00 Test Item Value Reference Range Comments POC-GLUCOSE METER (BEAKER) 163 mg/dL 70-110 TESTED AT [address] (test tile=2925) [facility] [address] POCT-GLUCOSE [id number] 01:04:00 Test Item Value Reference Range Comments POC-GLUCOSE METER (BEAKER) 159 mg/dL 70-110 TESTED AT [address] (test jajh=7642) [facility] [address] POCT-GLUCOSE [id number] 00:12:00 Test Item Value Reference Range Comments POC-GLUCOSE METER (BEAKER) 132 mg/dL 70-110 TESTED AT [address] (test fntf=3734) [facility] [address] LACTIC ACID, ARTERIAL, WHOLE [id number] 23:54:00 Test Item Value Reference Range Comments LACTATE BLOOD ARTERIAL (2) (BEAKER) (test 0.7 mmol/L 0.5-2.2 dhjw=0862) Effective 01/04/2016: Units/Reference Range ChangeNew: 0.5-2.2 mmol/L Previous: 5 -20 mg/dLSpecimen moderately ictericPOTASSIUM-STAT [id number] 23:30:00 Test Item Value Reference Range Comments POTASSIUM (BEAKER) (test sdzm=710) 4.0 meq/L 3.6-5.5 BLOOD GAS, [id number] 23:30:00 Test Item Value Reference Range Comments PH ARTERIAL (BEAKER) (test zizn=330) 7.45 7.35-7.45 PCO2 ARTERIAL (BEAKER) (test sxcf=071) 42 mmHg 35-45 PO2 ARTERIAL (BEAKER) (test hemr=331) 95 mmHg 80-90 O2 SATURATION ARTERIAL (BEAKER) (test mmtg=091) 97.5 % 96.0-97.0 HCO3 ARTERIAL (BEAKER) (test nmlg=350) 29 mmol/L 21-29 BASE EXCESS ARTERIAL (BEAKER) (test ixva=039) 4.3 mmol/L -2.0-3.0 PATIENT TEMPERATURE (BEAKER) (test vkkp=9825) 37.1 C FIO2 (BEAKER) (test sikn=1448) 50.0 % SODIUM NA-STAT [id number] 23:30:00 Test Item Value Reference Range Comments SODIUM (BEAKER) (test rtvc=586) 134 meq/L 135-148 GLUCOSE-STAT [id number] 23:30:00 Test Item Value Reference Range Comments GLUCOSE RANDOM (BEAKER) (test oxce=038) 138 mg/dL 70-110 HGB/HCT (H&H) - STAT [id number] 23:30:00 Test Item Value Reference Range Comments HEMOGLOBIN (BEAKER) (test ockf=983) 9.0 g/dL 13.0-16.8 HEMATOCRIT (BEAKER) (test prkj=902) 26.0 % 40.0-50.0 CALCIUM, [id number] 23:30:00 Test Item Value Reference Range Comments CALCIUM IONIZED (BEAKER) (test agkc=598) 1.04 mmol/L 1.12-1.27 PH, BLOOD (BEAKER) (test qczq=3266) 7.48 OXYGEN SATURATION, [id number] 23:28:00 Test Item Value Reference Range Comments O2 SATURATION (MEASURED) (BEAKER) (test hiui=7670) 82.0 % POCT-GLUCOSE [id number] 21:35:00 Test Item Value Reference Range Comments POC-GLUCOSE METER (BEAKER) 99 mg/dL 70-110 TESTED AT [place] [id number] [facility] (test gyoo=0688) [facility] [id number] POCT-GLUCOSE [id number] 21:35:00 Test Item Value Reference Range Comments POC-GLUCOSE METER (BEAKER) 111 mg/dL 70-110 TESTED AT [address] (test ffcc=1427) [facility] [address] RAD, CHEST, 1 VIEW, NON [id number] 17:08:00Reason for exam:->LIJ placment CVCShould this be [...] [place] Verified Date/Time: 01/17/2018 17:08:24 Reading Location: [facility] Radiology Reading Room GLUCOSE-STAT [id number] 16:33:00 Test Item Value Reference Range Comments GLUCOSE RANDOM (BEAKER) (test bixq=776) 147 mg/dL 70-110 POTASSIUM-STAT [id number] 16:32:00 Test Item Value Reference Range Comments POTASSIUM (BEAKER) (test qttw=701) 4.7 meq/L 3.6-5.5 [id number] 15:03:00 Test Item Value Reference Range Comments PROCALCITONIN (BEAKER) (test zvuz=8342) 5.33 ng/mL <0.05 SEPSIS RISK (ng/mL)Low: 0.05-0.50Intermediate: 0.51-2.00High: & gt;=2.01CT BRAIN WITHOUT IV CONTRAST - [id number] 13:50:00Reason for exam:->altered mental statusFINAL REPORT CT [...] should be excluded clinically. Signed: Dung Granda [facility] Verified Date/Time: 01/17/2018 13:50:42 Reading Location: [facility] Radiology Reading Room CALCIUM, [id number] 12:36:00 Test Item Value Reference Range Comments CALCIUM IONIZED (BEAKER) (test ecsq=212) 1.09 mmol/L 1.12-1.27 PH, BLOOD (BEAKER) (test sqsa=9543) 7.36 GLUCOSE-STAT [id number] 12:36:00 Test Item Value Reference Range Comments GLUCOSE RANDOM (BEAKER) (test mnma=338) 147 mg/dL 70-110 POTASSIUM-STAT [id number] 12:36:00 Test Item Value Reference Range Comments POTASSIUM (BEAKER) (test mxdr=777) 4.7 meq/L 3.6-5.5 RAD, ABDOMEN/KUB, 1 VIEW [id number] 08:42:00Reason for exam:->ileusShould this be performed at [...] [place] Verified Date/Time: 01/17/2018 08:42:09 Reading Location: [facility] Radiology Reading Room CBC W/ PLT COUNT & AUTO [id number] 08:18:00 Test Item Value Reference Range Comments WHITE BLOOD CELL COUNT (BEAKER) (test tqza=428) 22.5 K/ L 3.5-10.5 RED BLOOD CELL COUNT (BEAKER) (test unek=155) 2.87 M/ L 4.63-6.08 HEMOGLOBIN (BEAKER) (test wkhx=000) 9.0 GM/DL 13.7-17.5 HEMATOCRIT (BEAKER) (test pvnz=643) 27.4 % 40.1-51.0 MEAN CORPUSCULAR VOLUME (BEAKER) (test dhym=107) 95.5 fL 79.0-92.2 MEAN CORPUSCULAR HEMOGLOBIN (BEAKER) (test 31.4 pg 25.7-32.2 fnep=966) MEAN CORPUSCULAR HEMOGLOBIN CONC (BEAKER) (test 32.8 GM/DL 32.3-36.5 qapj=487) RED CELL DISTRIBUTION WIDTH (BEAKER) (test 18.8 % 11.6-14.4 ajlf=772) PLATELET COUNT (BEAKER) (test wiaa=514) 63 K/CU MM 150-450 MEAN PLATELET VOLUME (BEAKER) (test uszg=844) 11.1 fL 9.4-12.4 NUCLEATED RED BLOOD CELLS (BEAKER) (test 6 /100 WBC 0-0 zscd=031) HEPARIN ASSAY - [id number] 08:07:00 Test Item Value Reference Range Comments UNFRACTIONATED HEPARIN-ANTI 10A (BEAKER) (test < u/ml 0.30-0.70 bexh=6127) Recommendations for Monitoring Unfractionated Heparin Therapeutic Range: 0.3- 0.7 u/mL with continuous IV infusionPOCT-GLUCOSE [id number] 06:09:00 Test Item Value Reference Range Comments POC-GLUCOSE METER (BEAKER) 143 mg/dL 70-110 TESTED AT [address] (test ihjj=7062) [facility] [address] RAD, CHEST, 1 VIEW, NON [id number] 04:43:00Reason for exam:->acute respiratory insufficiencyShould this be [...] MDReport Verified Date/Time: 01/17/2018 04:43:34 Reading Location: [facility] [address] B1 [id number] Body Reading Room OXYGEN SATURATION, [id number] 04:13:00 Test Item Value Reference Range Comments O2 SATURATION (MEASURED) (BEAKER) (test fkvy=9204) 85.7 % [id number] 04:06:00 Test Item Value Reference Range Comments PHOSPHORUS (BEAKER) (test ccwd=655) 3.1 mg/dL 2.3-4.7 [id number] 04:06:00 Test Item Value Reference Range Comments MAGNESIUM (BEAKER) (test nxla=507) 2.1 mg/dL 1.6-2.6 COMPREHENSIVE METABOLIC [id number] 04:06:00 Test Item Value Reference Range Comments TOTAL PROTEIN (BEAKER) 5.2 gm/dL 6.0-8.3 (test nbqc=745) ALBUMIN (BEAKER) (test 2.8 g/dL 3.5-5.0 rlww=8703) ALKALINE PHOSPHATASE 60 U/L 40-150 (BEAKER) (test zefv=381) BILIRUBIN TOTAL (BEAKER) 9.1 mg/dL 0.2-1.2 (test hvjf=583) SODIUM (BEAKER) (test 135 meq/L 136-145 uiie=214) POTASSIUM (BEAKER) (test 4.7 meq/L 3.5-5.1 udeo=015) CHLORIDE (BEAKER) (test 102 meq/L 98-107 vhod=719) CO2 (BEAKER) (test 24 meq/L 22-29 zacz=779) BLOOD UREA NITROGEN 22 mg/dL 7-21 (BEAKER) (test kjub=611) CREATININE (BEAKER) (test 1.47 mg/dL 0.57-1.25 gryp=591) GLUCOSE RANDOM (BEAKER) 144 mg/dL 70-105 (test hpka=365) CALCIUM (BEAKER) (test 8.5 mg/dL 8.4-10.2 agak=484) AST (SGOT) (BEAKER) (test 64 U/L 5-34 hqqi=019) ALT (SGPT) (BEAKER) (test 250 U/L 6-55 qpsg=966) EGFR (BEAKER) (test 59 mL/min/1.73 sq m ESTIMATED GFR IS NOT ivkw=8915) ACCURATE CREATININE CLEARANCE IN PREDICTING GLOMERULAR FILTRATION RATE. ESTIMATED GFR IS NOT APPLICABLE FOR DIALYSIS PATIENTS. Specimen moderately ictericHEPATIC FUNCTION [id number] 04:06:00 Test Item Value Reference Range Comments TOTAL PROTEIN (BEAKER) (test gygk=087) 5.2 gm/dL 6.0-8.3 ALBUMIN (BEAKER) (test krfb=7071) 2.8 g/dL 3.5-5.0 BILIRUBIN TOTAL (BEAKER) (test brsp=132) 9.1 mg/dL 0.2-1.2 BILIRUBIN DIRECT (BEAKER) (test hrtt=465) 7.4 mg/dL 0.1-0.5 ALKALINE PHOSPHATASE (BEAKER) (test qlhr=976) 60 U/L 40-150 AST (SGOT) (BEAKER) (test pzvc=237) 64 U/L 5-34 ALT (SGPT) (BEAKER) (test hscr=247) 250 U/L 6-55 Specimen moderately ictericLACTIC ACID, ARTERIAL, WHOLE [id number] 03:59:00 Test Item Value Reference Range Comments LACTATE BLOOD ARTERIAL (2) 0.5 mmol/L 0.5-2.2 Specimen slightly hemolyzed (BEAKER) (test taed=9754) Effective 01/04/2016: Units/Reference Range ChangeNew: 0.5-2.2 mmol/L Previous: 5 -20 mg/dLSpecimen moderately ictericBLOOD GAS, [id number] 03:58:00 Test Item Value Reference Range Comments PH ARTERIAL (BEAKER) (test oxer=056) 7.42 7.35-7.45 PCO2 ARTERIAL (BEAKER) (test bhyz=357) 40 mmHg 35-45 PO2 ARTERIAL (BEAKER) (test qche=395) 131 mmHg 80-90 O2 SATURATION ARTERIAL (BEAKER) (test tbol=259) 98.8 % 96.0-97.0 HCO3 ARTERIAL (BEAKER) (test vyxo=475) 26 mmol/L 21-29 BASE EXCESS ARTERIAL (BEAKER) (test ilyh=743) 0.8 mmol/L -2.0-3.0 PATIENT TEMPERATURE (BEAKER) (test kjls=9896) 35.6 C FIO2 (BEAKER) (test mjkl=1075) 40.0 % CALCIUM, [id number] 03:58:00 Test Item Value Reference Range Comments CALCIUM IONIZED (BEAKER) (test iias=056) 1.14 mmol/L 1.12-1.27 PH, BLOOD (BEAKER) (test xbwx=7073) 7.41 POCT-GLUCOSE [id number] 02:41:00 Test Item Value Reference Range Comments POC-GLUCOSE METER (BEAKER) 144 mg/dL 70-110 TESTED AT [facility] [address] [facility] (test irou=2229) [facility] [address] POCT-GLUCOSE [id number] 00:30:00 Test Item Value Reference Range Comments POC-GLUCOSE METER (BEAKER) 171 mg/dL 70-110 TESTED AT [address] (test loac=0675) [facility] [address] POTASSIUM-STAT [id number] 00:08:00 Test Item Value Reference Range Comments POTASSIUM (BEAKER) (test qzgm=680) 4.5 meq/L 3.6-5.5 POCT-GLUCOSE [id number] 23:30:00 Test Item Value Reference Range Comments POC-GLUCOSE METER (BEAKER) 159 mg/dL 70-110 TESTED AT [address] (test ksie=9643) [facility] [address] POCT-GLUCOSE [id number] 21:08:00 Test Item Value Reference Range Comments POC-GLUCOSE METER (BEAKER) 194 mg/dL 70-110 TESTED AT [address] (test qtrq=2213) [facility] [address] POCT-GLUCOSE [id number] 21:08:00 Test Item Value Reference Range Comments POC-GLUCOSE METER (BEAKER) 230 mg/dL 70-110 TESTED AT [address] (test bcct=5238) [facility] [address] CALCIUM, [id number] 19:23:00 Test Item Value Reference Range Comments CALCIUM IONIZED (BEAKER) (test jgpw=676) 1.14 mmol/L 1.12-1.27 PH, BLOOD (BEAKER) (test lynj=3101) 7.36 POTASSIUM-STAT [id number] 19:23:00 Test Item Value Reference Range Comments POTASSIUM (BEAKER) (test detj=215) 5.1 meq/L 3.6-5.5 [id number] 17:27:00 Test Item Value Reference Range Comments PHOSPHORUS (BEAKER) (test glog=994) 2.2 mg/dL 2.3-4.7 [id number] 17:27:00 Test Item Value Reference Range Comments MAGNESIUM (BEAKER) (test jenh=612) 2.1 mg/dL 1.6-2.6 PH, [id number] 17:03:00 Test Item Value Reference Range Comments PH ARTERIAL (BEAKER) (test fkmr=632) 7.39 7.35-7.45 POCT-GLUCOSE [id number] 16:43:00 Test Item Value Reference Range Comments POC-GLUCOSE METER (BEAKER) 95 mg/dL 70-110 TESTED AT [address] (test xzdt=3186) [place] [id number] POCT-GLUCOSE [id number] 14:41:00 Test Item Value Reference Range Comments POC-GLUCOSE METER (BEAKER) 134 mg/dL 70-110 TESTED AT [address] (test ohif=5161) [place] [id number] RAD, ABDOMEN/KUB, 1 VIEW [id number] 13:16:00Reason for exam:-> constipationShould this be performed [...] No acute osseous abnormality. Signed: Kay Walter [facility] Verified Date/Time: 01/16/2018 13:16:27 [facility] Electronically signed by: KAY WALTER on01/16/2018 01:16 PMCALCIUM, [id number] 12:38:00 Test Item Value Reference Range Comments CALCIUM IONIZED (BEAKER) (test hvlp=415) 1.14 mmol/L 1.12-1.27 PH, BLOOD (BEAKER) (test enae=5120) 7.40 POCT-GLUCOSE [id number] 12:29:00 Test Item Value Reference Range Comments POC-GLUCOSE METER (BEAKER) 127 mg/dL 70-110 TESTED AT [address] (test sslj=6617) [place] [id number] POCT-GLUCOSE [id number] 10:34:00 Test Item Value Reference Range Comments POC-GLUCOSE METER (BEAKER) 130 mg/dL 70-110 TESTED AT [address] (test wquf=5666) [facility] [address] POCT-GLUCOSE [id number] 09:10:00 Test Item Value Reference Range Comments POC-GLUCOSE METER (BEAKER) 151 mg/dL 70-110 TESTED AT [facility] [address] (test qlgx=1152) [facility] [address] HEPARIN ASSAY - [id number] 09:00:00 Test Item Value Reference Range Comments UNFRACTIONATED HEPARIN-ANTI 10A (BEAKER) (test < u/ml 0.30-0.70 ajll=7338) Recommendations for Monitoring Unfractionated Heparin Therapeutic Range: 0.3- 0.7 u/mL with continuous IV infusionCBC W/PLT COUNT & AUTO [id number] 08:55:00 Test Item Value Reference Range Comments WHITE BLOOD CELL COUNT (BEAKER) (test vddm=334) 11.9 K/ L 3.5-10.5 RED BLOOD CELL COUNT (BEAKER) (test tdhl=439) 2.64 M/ L 4.63-6.08 HEMOGLOBIN (BEAKER) (test oufa=083) 8.4 GM/DL 13.7-17.5 HEMATOCRIT (BEAKER) (test onat=746) 25.2 % 40.1-51.0 MEAN CORPUSCULAR VOLUME (BEAKER) (test yarw=435) 95.5 fL 79.0-92.2 MEAN CORPUSCULAR HEMOGLOBIN (BEAKER) (test 31.8 pg 25.7-32.2 xduy=063) MEAN CORPUSCULAR HEMOGLOBIN CONC (BEAKER) (test 33.3 GM/DL 32.3-36.5 fjdv=494) RED CELL DISTRIBUTION WIDTH (BEAKER) (test 18.5 % 11.6-14.4 qjef=268) PLATELET COUNT (BEAKER) (test ipni=963) 45 K/CU MM 150-450 MEAN PLATELET VOLUME (BEAKER) (test wljv=139) 11.2 fL 9.4-12.4 NUCLEATED RED BLOOD CELLS (BEAKER) (test 9 /100 WBC 0-0 duvr=797) OXYGEN SATURATION, [id number] 08:30:00 Test Item Value Reference Range Comments O2 SATURATION (MEASURED) (BEAKER) (test lpuu=2542) 87.1 % RAD, CHEST, 1 VIEW, NON [id number] 08:11:00Reason for exam:->acute respiratory insufficiencyShould this be performed at the bedside?->YesFINAL REPORT CLINICAL HISTORY: acute respiratory insufficiency TECHNIQUE: 1 view of the chest. COMPARISON: 01/15/2018 IMPRESSION: The Easton-Moni catheter has been removed. The supporting lines and tubes are otherwise unchanged. There is no pneumothorax. Mild bilateral perihilar lung opacities have decreased. The cardiomediastinal silhouette is magnified by technique with sternotomy wires. Signed: Lorna Slade MDReport Verified Date/Time: 2017 08:11:02 Reading Location: [facility] Radiology Reading Room POCT- GLUCOSE [id number] 06:43:00 Test Item Value Reference Range Comments POC-GLUCOSE METER (BEAKER) 107 mg/dL 70-110 TESTED AT [address] (test laia=8117) [facility] [address] U/S, ABDOMINAL, [id number] 05:25:00Abdomen limited area? Add comment if clarification [...] Verified Date/ Time: 01/16/2018 05:25:06 Reading Location: [facility] [address] [address] [id number] Body Reading Room LACTIC ACID, ARTERIAL, WHOLE [id number] 04:06:00 Test Item Value Reference Range Comments LACTATE BLOOD ARTERIAL (2) (BEAKER) (test 0.6 mmol/L 0.5-2.2 aaky=2305) Effective 01/04/2016: Units/Reference Range ChangeNew: 0.5-2.2 mmol/L Previous: 5 -20 mg/dLSpecimen moderately [id number] 04:00:00 Test Item Value Reference Range Comments PHOSPHORUS (BEAKER) (test lnvj=130) 2.2 mg/dL 2.3-4.7 [id number] 04:00:00 Test Item Value Reference Range Comments MAGNESIUM (BEAKER) (test lhqi=636) 2.0 mg/dL 1.6-2.6 [id number] 04:00:00 Test Item Value Reference Range Comments CALCIUM (BEAKER) (test nwmk=090) 8.5 mg/dL 8.4-10.2 COMPREHENSIVE METABOLIC [id number] 04:00:00 Test Item Value Reference Range Comments TOTAL PROTEIN (BEAKER) 5.0 gm/dL 6.0-8.3 (test gjel=710) ALBUMIN (BEAKER) (test 2.7 g/dL 3.5-5.0 fylz=1291) ALKALINE PHOSPHATASE 45 U/L 40-150 (BEAKER) (test uaeg=678) BILIRUBIN TOTAL (BEAKER) 7.3 mg/dL 0.2-1.2 (test rxii=011) SODIUM (BEAKER) (test 136 meq/L 136-145 kyhf=049) POTASSIUM (BEAKER) (test 4.3 meq/L 3.5-5.1 jtxy=822) CHLORIDE (BEAKER) (test 105 meq/L 98-107 qfwm=528) CO2 (BEAKER) (test 25 meq/L 22-29 lzqv=873) BLOOD UREA NITROGEN 24 mg/dL 7-21 (BEAKER) (test mzkv=607) CREATININE (BEAKER) (test 1.44 mg/dL 0.57-1.25 gslg=071) GLUCOSE RANDOM (BEAKER) 102 mg/dL 70-105 (test etfx=748) CALCIUM (BEAKER) (test 8.5 mg/dL 8.4-10.2 auwy=610) AST (SGOT) (BEAKER) (test 107 U/L 5-34 iscz=084) ALT (SGPT) (BEAKER) (test 351 U/L 6-55 tege=392) EGFR (BEAKER) (test 61 mL/min/1.73 sq m ESTIMATED GFR IS NOT hotn=5745) ACCURATE CREATININE CLEARANCE IN PREDICTING GLOMERULAR FILTRATION RATE. ESTIMATED GFR IS NOT APPLICABLE FOR DIALYSIS PATIENTS. Specimen moderately ictericHEPATIC FUNCTION [id number] 04:00:00 Test Item Value Reference Range Comments TOTAL PROTEIN (BEAKER) (test agog=957) 5.0 gm/dL 6.0-8.3 ALBUMIN (BEAKER) (test ahdd=8643) 2.7 g/dL 3.5-5.0 BILIRUBIN TOTAL (BEAKER) (test xvih=082) 7.3 mg/dL 0.2-1.2 BILIRUBIN DIRECT (BEAKER) (test sjno=235) 6.0 mg/dL 0.1-0.5 ALKALINE PHOSPHATASE (BEAKER) (test wjlx=080) 45 U/L 40-150 AST (SGOT) (BEAKER) (test seqw=699) 107 U/L 5-34 ALT (SGPT) (BEAKER) (test egcz=038) 351 U/L 6-55 Specimen moderately ictericBLOOD GAS, [id number] 03:51:00 Test Item Value Reference Range Comments PH ARTERIAL (BEAKER) (test hhsf=975) 7.43 7.35-7.45 PCO2 ARTERIAL (BEAKER) (test qbaw=588) 41 mmHg 35-45 PO2 ARTERIAL (BEAKER) (test teqj=856) 158 mmHg 80-90 O2 SATURATION ARTERIAL (BEAKER) (test zzcf=161) 99.1 % 96.0-97.0 HCO3 ARTERIAL (BEAKER) (test tiqz=761) 27 mmol/L 21-29 BASE EXCESS ARTERIAL (BEAKER) (test yjmh=405) 2.1 mmol/L -2.0-3.0 PATIENT TEMPERATURE (BEAKER) (test kjzz=5812) 36.1 C FIO2 (BEAKER) (test rfsz=7390) 60.0 % PROTHROMBIN [id number] 03:51:00 Test Item Value Reference Range Comments PROTIME (BEAKER) (test efft=625) 15.2 seconds 11.7-14.7 INR (BEAKER) (test etxg=667) 1.2 <=5.9 RECOMMENDED COUMADIN/WARFARIN INR THERAPY RANGESSTANDARD DOSE: 2.0 - 3.0 Includes: PROPHYLAXIS forvenous thrombosis, systemic embolization; TREATMENT for venous thrombosis and/or pulmonary embolus.HIGH RISK: Target INR is 2.5-3.5 for patients with mechanical heart valves.CALCIUM, [id number] 03:51:00 Test Item Value Reference Range Comments CALCIUM IONIZED (BEAKER) (test ghvw=523) 1.17 mmol/L 1.12-1.27 PH, BLOOD (BEAKER) (test jxyv=4193) 7.42 POCT-GLUCOSE [id number] 02:08:00 Test Item Value Reference Range Comments POC-GLUCOSE METER (BEAKER) 110 mg/dL 70-110 TESTED AT [address] (test idkq=9189) [facility] [address] POCT-GLUCOSE [id number] 01:14:00 Test Item Value Reference Range Comments POC-GLUCOSE METER (BEAKER) 107 mg/dL 70-110 TESTED AT [address] (test rhng=5578) [facility] [address] POCT-GLUCOSE [id number] 00:29:00 Test Item Value Reference Range Comments POC-GLUCOSE METER (BEAKER) 129 mg/dL 70-110 TESTED AT [address] (test deih=5959) [facility] [address] POCT-GLUCOSE [id number] 23:07:00 Test Item Value Reference Range Comments POC-GLUCOSE METER (BEAKER) 152 mg/dL 70-110 TESTED AT [address] (test ogvm=5253) [facility] [address] POCT-GLUCOSE [id number] 22:09:00 Test Item Value Reference Range Comments POC-GLUCOSE METER (BEAKER) 171 mg/dL 70-110 TESTED AT [address] (test okfv=1475) [facility] [address] POCT-GLUCOSE [id number] 21:13:00 Test Item Value Reference Range Comments POC-GLUCOSE METER (BEAKER) 171 mg/dL 70-110 TESTED AT [address] (test wfpk=3809) [facility] [address] CALCIUM, [id number] 20:50:00 Test Item Value Reference Range Comments CALCIUM IONIZED (BEAKER) (test byof=424) 1.15 mmol/L 1.12-1.27 PH, BLOOD (BEAKER) (test zpak=7934) 7.34 POCT-GLUCOSE [id number] 20:21:00 Test Item Value Reference Range Comments POC-GLUCOSE METER (BEAKER) 206 mg/dL 70-110 TESTED AT [address] (test jdlv=5067) [facility] [address] POCT-GLUCOSE [id number] 19:16:00 Test Item Value Reference Range Comments POC-GLUCOSE METER (BEAKER) 197 mg/dL 70-110 TESTED AT [address] (test wpju=2644) [facility] [address] [id number] 17:15:00 Test Item Value Reference Range Comments PHOSPHORUS (BEAKER) (test gpjv=642) 4.1 mg/dL 2.3-4.7 [id number] 17:15:00 Test Item Value Reference Range Comments MAGNESIUM (BEAKER) (test owyp=450) 1.9 mg/dL 1.6-2.6 EEG AWAKE AND [id number] 14:56:00For STAT EEG- after 5 PM weekdays, weekends and holidays, page the on-call EEG TechReason for exam:->AMSShould this be performed at the bedside?->YesDate(s) of EE01/15/2018DATE OF REPORT : 01/15/2018ACC: [id number] Number: [id number] Location: Inpatient ICUStart time: 13:18Stop time: 13:40ICD-10: R41.82CPT Code: 69790 HISTORY: 62 y/o man with hxof AFib, [...] MD, MSClinical Neurophysiology/Epilepsy Attending 02: 56 PMHEPARIN [id number] 13:21:00 Test Item Value Reference Range Comments HEPARIN ANTIBODY (Resale Therapy) (test yqzm=414) Negative Negative HEPARIN ANTIBODY OD (Resale Therapy) (test mubm=9410) 0.076 <0.400 4T TOTAL SCORE (Resale Therapy) (test pklj=9732) 5 Probability of HIT based on scoring system: 6-8=High probability; 4-5= intermediate probability; 0-3=low probabilityPOCT-GLUCOSE [id number] 12:26: 00 Test Item Value Reference Range Comments POC-GLUCOSE METER (Resale Therapy) 128 mg/dL 70-110 TESTED AT [facility] [address] [facility] (test ccue=2262) [facility] [address] FIBRIN SOLUBLE [id number] 11:02:00 Test Item Value Reference Range Comments FIBRIN SOLUBLE MONOMER (BEAKER) (test meyr=8978) Negative HEPARIN ASSAY - [id number] 10:20:00 Test Item Value Reference Range Comments UNFRACTIONATED HEPARIN-ANTI 10A (BEAKER) (test < u/ml 0.30-0.70 uqvr=6603) Recommendations for Monitoring Unfractionated Heparin Therapeutic Range: 0.3- 0.7 u/mL with continuous IV xdlcjhdtJ-[id number] 10:14:00 Test Item Value Reference Range Comments D-DIMER QUANTITATIVE (BEAKER) (test mgvt=993) 3.76 MG/L FEU <0.50 Intended Use: The [...] exclusion of thrombosis is within 95-100% range.GLUCOSE-STAT [id number] 10:03:00 Test Item Value Reference Range Comments GLUCOSE RANDOM (BEAKER) (test agaw=826) 151 mg/dL 70-110 CALCIUM, [id number] 10:02:00 Test Item Value Reference Range Comments CALCIUM IONIZED (BEAKER) (test jgbw=931) 1.13 mmol/L 1.12-1.27 PH, BLOOD (BEAKER) (test pnzc=8324) 7.36 POTASSIUM-STAT [id number] 10:01:00 Test Item Value Reference Range Comments POTASSIUM (BEAKER) (test ygve=707) 4.3 meq/L 3.6-5.5 CBC W/PLT COUNT & AUTO [id number] 07:43:00 Test Item Value Reference Range Comments WHITE BLOOD CELL COUNT (BEAKER) (test pjmy=957) 14.7 K/ L 3.5-10.5 RED BLOOD CELL COUNT (BEAKER) (test tzhn=978) 2.90 M/ L 4.63-6.08 HEMOGLOBIN (BEAKER) (test daam=442) 9.0 GM/DL 13.7-17.5 HEMATOCRIT (BEAKER) (test xlmp=401) 27.4 % 40.1-51.0 MEAN CORPUSCULAR VOLUME (BEAKER) (test jesg=612) 94.5 fL 79.0-92.2 MEAN CORPUSCULAR HEMOGLOBIN (BEAKER) (test 31.0 pg 25.7-32.2 lkyk=491) MEAN CORPUSCULAR HEMOGLOBIN CONC (BEAKER) (test 32.8 GM/DL 32.3-36.5 vcrm=094) RED CELL DISTRIBUTION WIDTH (BEAKER) (test 18.7 % 11.6-14.4 hxod=580) PLATELET COUNT (BEAKER) (test xugy=600) 42 K/CU MM 150-450 MEAN PLATELET VOLUME (BEAKER) (test hawz=488) 11.2 fL 9.4-12.4 NUCLEATED RED BLOOD CELLS (BEAKER) (test 13 /100 WBC 0-0 mtfi=568) NEUTROPHILS RELATIVE PERCENT (BEAKER) (test 87 % mluv=327) LYMPHOCYTES RELATIVE PERCENT (BEAKER) (test 3 % feyn=578) MONOCYTES RELATIVE PERCENT (BEAKER) (test 9 % jhtw=942) EOSINOPHILS RELATIVE PERCENT (BEAKER) (test 0 % jxny=430) BASOPHILS RELATIVE PERCENT (BEAKER) (test 0 % tgit=165) NEUTROPHILS ABSOLUTE COUNT (BEAKER) (test 12.77 K/ L 1.78-5.38 kaum=868) LYMPHOCYTES ABSOLUTE COUNT (BEAKER) (test 0.46 K/ L 1.32-3.57 unww=027) MONOCYTES ABSOLUTE COUNT (BEAKER) (test 1.25 K/ L 0.30-0.82 rpvt=863) EOSINOPHILS ABSOLUTE COUNT (BEAKER) (test 0.00 K/ L 0.04-0.54 mrtx=868) BASOPHILS ABSOLUTE COUNT (BEAKER) (test 0.01 K/ L 0.01-0.08 pxjb=341) IMMATURE GRANULOCYTES-RELATIVE PERCENT (BEAKER) 2 % 0-1 (test ofhg=8055) RAD, CHEST, 1 VIEW, NON [id number] 04:00:00Reason for exam:->acute respiratory insufficiencyShould this be performed at the bedside?-> YesAddendum BeginsREPORT STATUS:A Correction: Comparison is made to previous dated 01/14/2018. Signed: Kellen Parra MDReport Verified Date/Time: 01/15/2018 04:00:43 Reading Location: [address] Reading RoomAddendum EndsFINAL REPORT CLINICAL INDICATION: Respiratory insufficiency Comparison: 01/15/2018 The cardiomediastinal contours are stable. Central pulmonary vascular congestion and bilateral parenchymal opacities are unchanged. There is no pneumothorax. Support lines are stable. Signed: Kellen Parra MDReport Verified Date/Time: 03:46:27 Reading Location: [address] Reading Room [id number] 03:36:00 Test Item Value Reference Range Comments PHOSPHORUS (BEAKER) (test nkvg=892) 2.7 mg/dL 2.3-4.7 [id number] 03:36:00 Test Item Value Reference Range Comments MAGNESIUM (BEAKER) (test lycx=070) 2.0 mg/dL 1.6-2.6 COMPREHENSIVE METABOLIC [id number] 03:36:00 Test Item Value Reference Range Comments TOTAL PROTEIN (BEAKER) 5.2 gm/dL 6.0-8.3 (test aqdb=376) ALBUMIN (BEAKER) (test 2.9 g/dL 3.5-5.0 vnux=6170) ALKALINE PHOSPHATASE 44 U/L 40-150 (BEAKER) (test kzke=721) BILIRUBIN TOTAL (BEAKER) 5.6 mg/dL 0.2-1.2 (test jimc=655) SODIUM (BEAKER) (test 137 meq/L 136-145 rbfy=875) POTASSIUM (BEAKER) (test 4.4 meq/L 3.5-5.1 amcx=262) CHLORIDE (BEAKER) (test 104 meq/L 98-107 pull=866) CO2 (BEAKER) (test 23 meq/L 22-29 ukwu=291) BLOOD UREA NITROGEN 27 mg/dL 7-21 (BEAKER) (test eyxd=717) CREATININE (BEAKER) (test 1.65 mg/dL 0.57-1.25 rdyx=610) GLUCOSE RANDOM (BEAKER) 134 mg/dL 70-105 (test knna=448) CALCIUM (BEAKER) (test 9.1 mg/dL 8.4-10.2 vgkv=632) AST (SGOT) (BEAKER) (test 315 U/L 5-34 nwya=192) ALT (SGPT) (BEAKER) (test 665 U/L 6-55 ijmh=883) EGFR (BEAKER) (test 52 mL/min/1.73 sq m ESTIMATED GFR IS NOT rpqm=7185) ACCURATE CREATININE CLEARANCE IN PREDICTING GLOMERULAR FILTRATION RATE. ESTIMATED GFR IS NOT APPLICABLE FOR DIALYSIS PATIENTS. Specimen slightly ictericHEPATIC FUNCTION [id number] 03:36:00 Test Item Value Reference Range Comments TOTAL PROTEIN (BEAKER) (test kqth=722) 5.2 gm/dL 6.0-8.3 ALBUMIN (BEAKER) (test jggj=1683) 2.9 g/dL 3.5-5.0 BILIRUBIN TOTAL (BEAKER) (test whej=484) 5.6 mg/dL 0.2-1.2 BILIRUBIN DIRECT (BEAKER) (test jwlx=837) 4.4 mg/dL 0.1-0.5 ALKALINE PHOSPHATASE (BEAKER) (test scun=241) 44 U/L 40-150 AST (SGOT) (BEAKER) (test cmas=419) 315 U/L 5-34 ALT (SGPT) (BEAKER) (test xxmr=581) 665 U/L 6-55 Specimen slightly ictericPROTHROMBIN [id number] 03:35:00 Test Item Value Reference Range Comments PROTIME (BEAKER) (test fkeg=170) 16.5 seconds 11.7-14.7 INR (BEAKER) (test nwcm=316) 1.3 <=5.9 RECOMMENDED COUMADIN/WARFARIN INR THERAPY RANGESSTANDARD DOSE: 2.0 - 3.0 Includes: PROPHYLAXIS forvenous thrombosis, systemic embolization; TREATMENT for venous thrombosis and/or pulmonary embolus.HIGH RISK: Target INR is 2.5-3.5 for patients with mechanical heart valves.LACTIC ACID, ARTERIAL, WHOLE [id number] 03:30:00 Test Item Value Reference Range Comments LACTATE BLOOD ARTERIAL (2) 0.8 mmol/L 0.5-2.2 Specimen slightly hemolyzed (BEAKER) (test saco=2459) Effective 01/04/2016: Units/Reference Range ChangeNew: 0.5-2.2 mmol/L Previous: 5 -20 mg/dLSpecimen slightly ictericBLOOD GAS, [id number] 03:29:00 Test Item Value Reference Range Comments PH ARTERIAL (BEAKER) (test uplx=085) 7.36 7.35-7.45 PCO2 ARTERIAL (BEAKER) (test mnmi=469) 45 mmHg 35-45 PO2 ARTERIAL (BEAKER) (test jtmn=663) 114 mmHg 80-90 O2 SATURATION ARTERIAL (BEAKER) (test ehwc=770) 98.0 % 96.0-97.0 HCO3 ARTERIAL (BEAKER) (test jguf=953) 25 mmol/L 21-29 BASE EXCESS ARTERIAL (BEAKER) (test refx=535) -0.6 mmol/L -2.0-3.0 PATIENT TEMPERATURE (BEAKER) (test ihgj=7673) 37.0 C FIO2 (BEAKER) (test kdlw=6182) 40.0 % OXYGEN SATURATION, [id number] 03:26:00 Test Item Value Reference Range Comments O2 SATURATION (MEASURED) (BEAKER) (test xrvk=6596) 72.5 % CALCIUM, [id number] 00:17:00 Test Item Value Reference Range Comments CALCIUM IONIZED (BEAKER) (test tlib=298) 1.19 mmol/L 1.12-1.27 PH, BLOOD (BEAKER) (test wsui=0954) 7.36 POCT-GLUCOSE [id number] 00:15:00 Test Item Value Reference Range Comments POC-GLUCOSE METER (BEAKER) 144 mg/dL 70-110 TESTED AT [address] (test qugt=8279) [facility] [address] POCT-GLUCOSE [id number] 22:43:00 Test Item Value Reference Range Comments POC-GLUCOSE METER (BEAKER) 98 mg/dL 70-110 TESTED AT [address] (test pxfl=1868) [facility] [id number] POCT-GLUCOSE [id number] 22:43:00 Test Item Value Reference Range Comments POC-GLUCOSE METER (BEAKER) 80 mg/dL 70-110 TESTED AT [address] (test skkl=3376) [facility] [address] VANCOMYCIN LEVEL, [id number] 20:20:00 Test Item Value Reference Range Comments VANCOMYCIN TROUGH (BEAKER) (test ewpo=077) 20.1 ug/mL 10.0-20.0 Before vanc [id number] 16:52:00 Test Item Value Reference Range Comments PHOSPHORUS (BEAKER) (test kafc=293) 1.7 mg/dL 2.3-4.7 [id number] 16:52:00 Test Item Value Reference Range Comments MAGNESIUM (BEAKER) (test cqgg=969) 2.3 mg/dL 1.6-2.6 [id number] 16:39:00 Test Item Value Reference Range Comments AMMONIA (BEAKER) (test rtwb=688) 32 mol/L 18-72 PH, [id number] 16:01:00 Test Item Value Reference Range Comments PH ARTERIAL (BEAKER) (test wnpa=391) 7.42 7.35-7.45 GLUCOSE-STAT [id number] 16:01:00 Test Item Value Reference Range Comments GLUCOSE RANDOM (BEAKER) (test eyws=892) 95 mg/dL 70-110 POTASSIUM-STAT [id number] 16:01:00 Test Item Value Reference Range Comments POTASSIUM (BEAKER) (test vkkr=184) 4.3 meq/L 3.6-5.5 CALCIUM, [id number] 16:01:00 Test Item Value Reference Range Comments CALCIUM IONIZED (BEAKER) (test xqix=064) 1.28 mmol/L 1.12-1.27 PH, BLOOD (BEAKER) (test lqno=7389) 7.42 CALCIUM, [id number] 12:19:00 Test Item Value Reference Range Comments CALCIUM IONIZED (BEAKER) (test xnkk=948) 1.36 mmol/L 1.12-1.27 PH, BLOOD (BEAKER) (test hhdc=0381) 7.41 GLUCOSE-STAT [id number] 12:17:00 Test Item Value Reference Range Comments GLUCOSE RANDOM (BEAKER) (test cdjf=259) 94 mg/dL 70-110 POTASSIUM-STAT [id number] 12:17:00 Test Item Value Reference Range Comments POTASSIUM (BEAKER) (test jqcv=854) 4.3 meq/L 3.6-5.5 [id number] 11:34:00 Test Item Value Reference Range Comments MAGNESIUM (BEAKER) (test rkfc=896) 2.1 mg/dL 1.6-2.6 BASIC METABOLIC [id number] 11:34:00 Test Item Value Reference Range Comments SODIUM (BEAKER) (test 135 meq/L 136-145 dzvk=445) POTASSIUM (BEAKER) (test 4.4 meq/L 3.5-5.1 jurt=780) CHLORIDE (BEAKER) (test 104 meq/L 98-107 ftsy=590) CO2 (BEAKER) (test 23 meq/L 22-29 alde=152) BLOOD UREA NITROGEN 28 mg/dL 7-21 (BEAKER) (test ltlp=795) CREATININE (BEAKER) (test 1.69 mg/dL 0.57-1.25 shwg=797) GLUCOSE RANDOM (BEAKER) 148 mg/dL 70-105 (test hofx=837) CALCIUM (BEAKER) (test 9.0 mg/dL 8.4-10.2 ylmv=425) EGFR (BEAKER) (test 50 mL/min/1.73 sq m ESTIMATED GFR IS NOT msfz=8549) ACCURATE CREATININE CLEARANCE IN PREDICTING GLOMERULAR FILTRATION RATE. ESTIMATED GFR IS NOT APPLICABLE FOR DIALYSIS PATIENTS. Specimen slightly ictericHEPATIC FUNCTION [id number] 11:34:00 Test Item Value Reference Range Comments TOTAL PROTEIN (BEAKER) (test cinl=660) 5.2 gm/dL 6.0-8.3 ALBUMIN (BEAKER) (test ihjx=2378) 3.0 g/dL 3.5-5.0 BILIRUBIN TOTAL (BEAKER) (test ohcg=748) 4.3 mg/dL 0.2-1.2 BILIRUBIN DIRECT (BEAKER) (test txrg=940) 3.3 mg/dL 0.1-0.5 ALKALINE PHOSPHATASE (BEAKER) (test uxfj=514) 39 U/L 40-150 AST (SGOT) (BEAKER) (test kzne=459) 817 U/L 5-34 ALT (SGPT) (BEAKER) (test mrep=035) 1247 U/L 6-55 Specimen slightly ictericBLOOD GAS, [id number] 09:44:00 Test Item Value Reference Range Comments PH ARTERIAL (BEAKER) (test zesl=844) 7.40 7.35-7.45 PCO2 ARTERIAL (BEAKER) (test fern=333) 46 mmHg 35-45 PO2 ARTERIAL (BEAKER) (test xjyg=105) 238 mmHg 80-90 O2 SATURATION ARTERIAL (BEAKER) (test ggdg=836) 99.5 % 96.0-97.0 HCO3 ARTERIAL (BEAKER) (test agxr=860) 28 mmol/L 21-29 BASE EXCESS ARTERIAL (BEAKER) (test nvvi=226) 2.4 mmol/L -2.0-3.0 PATIENT TEMPERATURE (BEAKER) (test pjyy=5965) 37.0 C FIO2 (BEAKER) (test xqqv=8706) 100.0 % GLUCOSE-STAT [id number] 09:42:00 Test Item Value Reference Range Comments GLUCOSE RANDOM (BEAKER) (test quaf=311) 95 mg/dL 70-110 POTASSIUM-STAT [id number] 09:42:00 Test Item Value Reference Range Comments POTASSIUM (BEAKER) (test ttga=132) 4.5 meq/L 3.6-5.5 CALCIUM, [id number] 09:38:00 Test Item Value Reference Range Comments CALCIUM IONIZED (BEAKER) (test jdad=077) 1.26 mmol/L 1.12-1.27 PH, BLOOD (BEAKER) (test bumn=2200) 7.41 HEPARIN ASSAY - [id number] 08:44:00 Test Item Value Reference Range Comments UNFRACTIONATED HEPARIN-ANTI 10A (BEAKER) (test < u/ml 0.30-0.70 jjzx=3518) Recommendations for Monitoring Unfractionated Heparin Therapeutic Range: 0.3- 0.7 u/mL with continuous IV infusionGLUCOSE-STAT [id number] 06:41:00 Test Item Value Reference Range Comments GLUCOSE RANDOM (BEAKER) (test zseb=029) 127 mg/dL 70-110 THROMBOELASTOGRAPH (TEG)2018-01-14 06:14:00 Test Item Value Reference Range Comments TEG ACTIVATED CLOTTING TIME (BEAKER) (test 5.1 minutes 4.0-7.0 ziir=9002) TEG FIBRINOGEN ACTIVITY (BEAKER) (test 66.3 degrees 61.0-73.0 njkl=2905) TEG PLT. AGGREGATION (BEAKER) (test ulyb=9244) 57.8 MM 55.0-65.0 TEG FIBRINOLYSIS (BEAKER) (test ykmv=9709) 0.0 % 0.0-5.0 TGH ACTIVATED CLOTTING TIME (BEAKER) (test 5.1 minutes 4.0-7.0 eulm=8366) TGH FIBRINOGEN ACTIVITY (BEAKER) (test 65.6 degrees 61.0-73.0 bchl=6630) TGH PLT. AGGREGATION (BEAKER) (test kpuw=0590) 56.4 MM 55.0-65.0 TGH FIBRINOLYSIS (BEAKER) (test dbgi=2821) 0.0 % 0.0-5.0 [id number] 05:05:00 Test Item Value Reference Range Comments PHOSPHORUS (BEAKER) (test ulqx=207) 2.5 mg/dL 2.3-4.7 [id number] 05:05:00 Test Item Value Reference Range Comments MAGNESIUM (BEAKER) (test hdwc=837) 2.1 mg/dL 1.6-2.6 HEPATIC FUNCTION [id number] 05:05:00 Test Item Value Reference Range Comments TOTAL PROTEIN (BEAKER) (test dvqr=173) 5.2 gm/dL 6.0-8.3 ALBUMIN (BEAKER) (test xcke=4511) 3.0 g/dL 3.5-5.0 BILIRUBIN TOTAL (BEAKER) (test hujv=732) 4.3 mg/dL 0.2-1.2 BILIRUBIN DIRECT (BEAKER) (test knso=645) 3.4 mg/dL 0.1-0.5 ALKALINE PHOSPHATASE (BEAKER) (test txoq=375) 40 U/L 40-150 AST (SGOT) (BEAKER) (test cion=434) 815 U/L 5-34 ALT (SGPT) (BEAKER) (test neqd=815) 1266 U/L 6-55 Specimen slightly [id number] 05:05:00 Test Item Value Reference Range Comments CALCIUM (BEAKER) (test umvd=424) 9.0 mg/dL 8.4-10.2 LACTATE DEHYDROGENASE (LDH)2018-01-14 05:05:00 Test Item Value Reference Range Comments LACTATE DEHYDROGENASE (BEAKER) (test cxot=178) 667 U/L 125-220 PROTHROMBIN [id number] 05:05:00 Test Item Value Reference Range Comments PROTIME (BEAKER) (test uyvx=434) 15.2 seconds 11.7-14.7 INR (BEAKER) (test wfmz=007) 1.2 <=5.9 RECOMMENDED COUMADIN/WARFARIN INR THERAPY RANGESSTANDARD DOSE: 2.0 - 3.0 Includes: PROPHYLAXIS forvenous thrombosis, systemic embolization; TREATMENT for venous thrombosis and/or pulmonary embolus.HIGH RISK: Target INR is 2.5-3.5 for patients with mechanical heart valves.[id number] 05:05:00 Test Item Value Reference Range Comments FIBRINOGEN LEVEL (BEAKER) (test pqbo=199) 280 mg/dl 225-434 RAD, CHEST, 1 VIEW, NON [id number] 04:57:00Reason for exam:->impella/ECMO /intubationShould this be performed at the bedside?->YesFINAL REPORT CLINICAL INDICATION: Support lines. Comparison: 01/13/2018 The cardiomediastinal contours are stable. Cardiac opacities may reflect atelectasis but pneumonitis should be excluded clinically. There is no pneumothorax. Support lines are stable. Signed: Kellen Parra MDReport Verified Date/Time: 01/14/2018 04:57:02 Reading Location: [address] Reading Room LACTIC ACID, ARTERIAL, WHOLE [id number] 04:55:00 Test Item Value Reference Range Comments LACTATE BLOOD ARTERIAL (2) (BEAKER) (test 1.2 mmol/L 0.5-2.2 lyts=4876) Effective 01/04/2016: Units/Reference Range ChangeNew: 0.5-2.2 mmol/L Previous: 5 -20 mg/dLSpecimen slightly ictericCBC (HEMOGRAM ONLY)2018-01-14 04:45:00 Test Item Value Reference Range Comments WHITE BLOOD CELL COUNT (BEAKER) (test kpfg=914) 11.7 K/ L 3.5-10.5 RED BLOOD CELL COUNT (BEAKER) (test eiob=723) 2.83 M/ L 4.63-6.08 HEMOGLOBIN (BEAKER) (test vxqw=972) 9.0 GM/DL 13.7-17.5 HEMATOCRIT (BEAKER) (test ifsr=781) 26.5 % 40.1-51.0 MEAN CORPUSCULAR VOLUME (BEAKER) (test uxxl=410) 93.6 fL 79.0-92.2 MEAN CORPUSCULAR HEMOGLOBIN (BEAKER) (test 31.8 pg 25.7-32.2 ypps=556) MEAN CORPUSCULAR HEMOGLOBIN CONC (BEAKER) (test 34.0 GM/DL 32.3-36.5 zwnd=083) RED CELL DISTRIBUTION WIDTH (BEAKER) (test 18.4 % 11.6-14.4 fniy=074) PLATELET COUNT (BEAKER) (test npwa=754) 64 K/CU MM 150-450 MEAN PLATELET VOLUME (BEAKER) (test dpqx=275) 11.5 fL 9.4-12.4 NUCLEATED RED BLOOD CELLS (BEAKER) (test 16 /100 WBC 0-0 fufg=454) CALCIUM, [id number] 04:39:00 Test Item Value Reference Range Comments CALCIUM IONIZED (BEAKER) (test yomc=657) 1.20 mmol/L 1.12-1.27 PH, BLOOD (BEAKER) (test zemd=8635) 7.37 OXYGEN SATURATION, [id number] 04:38:00 Test Item Value Reference Range Comments O2 SATURATION (MEASURED) (BEAKER) (test regz=4096) 75.3 % BLOOD GAS, [id number] 04:37:00 Test Item Value Reference Range Comments PH ARTERIAL (BEAKER) (test hxhr=362) 7.39 7.35-7.45 PCO2 ARTERIAL (BEAKER) (test lpcp=469) 46 mmHg 35-45 PO2 ARTERIAL (BEAKER) (test tfqq=668) 251 mmHg 80-90 O2 SATURATION ARTERIAL (BEAKER) (test xgxk=318) 99.6 % 96.0-97.0 HCO3 ARTERIAL (BEAKER) (test jjjl=545) 27 mmol/L 21-29 BASE EXCESS ARTERIAL (BEAKER) (test rhuv=700) 1.6 mmol/L -2.0-3.0 PATIENT TEMPERATURE (BEAKER) (test vdcr=9372) 35.4 C FIO2 (BEAKER) (test fqrc=6517) 40.0 % GLUCOSE-STAT [id number] 04:37:00 Test Item Value Reference Range Comments GLUCOSE RANDOM (BEAKER) (test cokf=322) 154 mg/dL 70-110 GLUCOSE-STAT [id number] 02:52:00 Test Item Value Reference Range Comments GLUCOSE RANDOM (BEAKER) (test agzb=932) 179 mg/dL 70-110 GLUCOSE-STAT [id number] 01:26:00 Test Item Value Reference Range Comments GLUCOSE RANDOM (BEAKER) (test ozyb=074) 195 mg/dL 70-110 [id number] 00:08:00 Test Item Value Reference Range Comments POTASSIUM (BEAKER) (test ygno=382) 4.2 meq/L 3.5-5.1 [id number] 00:08:00 Test Item Value Reference Range Comments GLUCOSE RANDOM (BEAKER) (test ysyh=862) 237 mg/dL 70-105 CBC W/PLT COUNT & AUTO [id number] 22:28:00 Test Item Value Reference Range Comments WHITE BLOOD CELL COUNT (BEAKER) (test bsma=267) 13.2 K/ L 3.5-10.5 RED BLOOD CELL COUNT (BEAKER) (test nnlo=537) 2.32 M/ L 4.63-6.08 HEMOGLOBIN (BEAKER) (test stun=978) 7.5 GM/DL 13.7-17.5 HEMATOCRIT (BEAKER) (test mzri=383) 22.6 % 40.1-51.0 MEAN CORPUSCULAR VOLUME (BEAKER) (test nmhg=404) 97.4 fL 79.0-92.2 MEAN CORPUSCULAR HEMOGLOBIN (BEAKER) (test 32.3 pg 25.7-32.2 vfuq=599) MEAN CORPUSCULAR HEMOGLOBIN CONC (BEAKER) (test 33.2 GM/DL 32.3-36.5 joxt=458) RED CELL DISTRIBUTION WIDTH (BEAKER) (test 17.6 % 11.6-14.4 tuta=278) PLATELET COUNT (BEAKER) (test duzy=129) 74 K/CU MM 150-450 MEAN PLATELET VOLUME (BEAKER) (test mduw=943) 11.3 fL 9.4-12.4 NUCLEATED RED BLOOD CELLS (BEAKER) (test 11 /100 WBC 0-0 uyln=928) RAD, CHEST, 1 VIEW, NON [id number] 21:50:00Reason for exam:->chest tubes/ intubationShould this be [...] MDReport Verified Date/Time: 01/13/2018 21:50:50 Reading Location: [facility] [id number] Consult Reading Room THROMBOELASTOGRAPH (TEG)2018-01-13 21:45:00 Test Item Value Reference Range Comments TEG ACTIVATED CLOTTING TIME (BEAKER) (test 5.8 minutes 4.0-7.0 dgxg=4228) TEG FIBRINOGEN ACTIVITY (BEAKER) (test 63.1 degrees 61.0-73.0 vrfv=4978) TEG PLT. AGGREGATION (BEAKER) (test mutz=7304) 51.7 MM 55.0-65.0 TEG FIBRINOLYSIS (BEAKER) (test qgzv=4312) 0.0 % 0.0-5.0 TGH ACTIVATED CLOTTING TIME (BEAKER) (test 5.8 minutes 4.0-7.0 nqjx=1398) TGH FIBRINOGEN ACTIVITY (BEAKER) (test 64.9 degrees 61.0-73.0 qgdh=4272) TGH PLT. AGGREGATION (BEAKER) (test breh=3619) 50.0 MM 55.0-65.0 TGH FIBRINOLYSIS (BEAKER) (test axbm=6543) 0.0 % 0.0-5.0 BASIC METABOLIC [id number] 21:35:00 Test Item Value Reference Range Comments SODIUM (BEAKER) (test 135 meq/L 136-145 cses=950) POTASSIUM (BEAKER) (test 3.4 meq/L 3.5-5.1 qexh=471) CHLORIDE (BEAKER) (test 103 meq/L 98-107 edno=351) CO2 (BEAKER) (test 21 meq/L 22-29 umat=780) BLOOD UREA NITROGEN 31 mg/dL 7-21 (BEAKER) (test ylal=283) CREATININE (BEAKER) (test 1.96 mg/dL 0.57-1.25 jhma=301) GLUCOSE RANDOM (BEAKER) 239 mg/dL 70-105 (test wehj=430) CALCIUM (BEAKER) (test 7.9 mg/dL 8.4-10.2 kekp=810) EGFR (BEAKER) (test 42 mL/min/1.73 sq m ESTIMATED GFR IS NOT zopy=1369) ACCURATE CREATININE CLEARANCE IN PREDICTING GLOMERULAR FILTRATION RATE. ESTIMATED GFR IS NOT APPLICABLE FOR DIALYSIS PATIENTS. Specimen slightly [id number] 21:06:00 Test Item Value Reference Range Comments PHOSPHORUS (BEAKER) (test qwlx=328) 3.7 mg/dL 2.3-4.7 [id number] 21:06:00 Test Item Value Reference Range Comments MAGNESIUM (BEAKER) (test szev=073) 2.0 mg/dL 1.6-2.6 LACTIC ACID, ARTERIAL, WHOLE [id number] 21:06:00 Test Item Value Reference Range Comments LACTATE BLOOD ARTERIAL (2) (BEAKER) (test 1.8 mmol/L 0.5-2.2 fabb=4611) Effective 01/04/2016: Units/Reference Range ChangeNew: 0.5-2.2 mmol/L Previous: 5 -20 mg/dLSpecimen slightly [id number] 21:01:00 Test Item Value Reference Range Comments PARTIAL THROMBOPLASTIN TIME (BEAKER) (test 35.1 seconds 22.5-36.0 fxsd=177) [id number] 21:00:00 Test Item Value Reference Range Comments FIBRINOGEN LEVEL (BEAKER) (test ywmq=869) 253 mg/dl 225-434 PROTHROMBIN [id number] 20:59:00 Test Item Value Reference Range Comments PROTIME (BEAKER) (test udkz=167) 16.4 seconds 11.7-14.7 INR (BEAKER) (test yiri=643) 1.3 <=5.9 RECOMMENDED COUMADIN/WARFARIN INR THERAPY RANGESSTANDARD DOSE: 2.0 - 3.0 Includes: PROPHYLAXIS forvenous thrombosis, systemic embolization; TREATMENT for venous thrombosis and/or pulmonary embolus.HIGH RISK: Target INR is 2.5-3.5 for patients with mechanical heart valves.BLOOD GAS, [id number] 20:47:00 Test Item Value Reference Range Comments PH ARTERIAL (BEAKER) (test clcc=996) 7.39 7.35-7.45 PCO2 ARTERIAL (BEAKER) (test ykun=632) 37 mmHg 35-45 PO2 ARTERIAL (BEAKER) (test jcfi=484) 230 mmHg 80-90 O2 SATURATION ARTERIAL (BEAKER) (test jrbm=436) 99.5 % 96.0-97.0 HCO3 ARTERIAL (BEAKER) (test lnei=653) 22 mmol/L 21-29 BASE EXCESS ARTERIAL (BEAKER) (test oyka=221) -2.6 mmol/L -2.0-3.0 PATIENT TEMPERATURE (BEAKER) (test onmu=6595) 35.6 C FIO2 (BEAKER) (test xnzo=0931) 40.0 % GLUCOSE-STAT [id number] 20:47:00 Test Item Value Reference Range Comments GLUCOSE RANDOM (BEAKER) (test ipna=819) 235 mg/dL 70-110 CALCIUM, [id number] 20:47:00 Test Item Value Reference Range Comments CALCIUM IONIZED (BEAKER) (test cjxe=925) 0.97 mmol/L 1.12-1.27 PH, BLOOD (BEAKER) (test trjt=2783) 7.39 HGB/HCT (H&H) - STAT [id number] 20:46:00 Test Item Value Reference Range Comments HEMOGLOBIN (BEAKER) (test nczr=179) 7.7 g/dL 13.0-16.8 HEMATOCRIT (BEAKER) (test kkuf=066) 23.0 % 40.0-50.0 POTASSIUM-STAT [id number] 20:46:00 Test Item Value Reference Range Comments POTASSIUM (BEAKER) (test ugpn=615) 3.4 meq/L 3.6-5.5 SODIUM NA-STAT [id number] 20:46:00 Test Item Value Reference Range Comments SODIUM (BEAKER) (test urku=349) 133 meq/L 135-148 OXYGEN SATURATION, [id number] 20:42:00 Test Item Value Reference Range Comments O2 SATURATION (MEASURED) (BEAKER) (test xbcz=4766) 74.1 % BLOOD GAS, [id number] 18:58:00 Test Item Value Reference Range Comments PH ARTERIAL (BEAKER) (test hpjn=346) 7.53 7.35-7.45 PCO2 ARTERIAL (BEAKER) (test fcss=637) 24 mmHg 35-45 PO2 ARTERIAL (BEAKER) (test sxbg=721) 582 mmHg 80-90 O2 SATURATION ARTERIAL (BEAKER) (test jdwc=030) 99.9 % 96.0-97.0 HCO3 ARTERIAL (BEAKER) (test duld=292) 20 mmol/L 21-29 BASE EXCESS ARTERIAL (BEAKER) (test enai=494) -2.3 mmol/L -2.0-3.0 PATIENT TEMPERATURE (BEAKER) (test ovhr=2538) 37.0 C FIO2 (BEAKER) (test tvun=8544) 100.0 % SODIUM NA-STAT [id number] 18:58:00 Test Item Value Reference Range Comments SODIUM (BEAKER) (test hvmj=379) 131 meq/L 135-148 POTASSIUM-STAT [id number] 18:58:00 Test Item Value Reference Range Comments POTASSIUM (BEAKER) (test gmst=536) 3.4 meq/L 3.6-5.5 GLUCOSE-STAT [id number] 18:58:00 Test Item Value Reference Range Comments GLUCOSE RANDOM (BEAKER) (test jrxj=436) 214 mg/dL 70-110 HGB/HCT (H&H) - STAT [id number] 18:58:00 Test Item Value Reference Range Comments HEMOGLOBIN (BEAKER) (test khmq=115) 8.1 g/dL 13.0-16.8 HEMATOCRIT (BEAKER) (test xisu=907) 24.0 % 40.0-50.0 THROMBOELASTOGRAPH (TEG)2018-01-13 18:23:00 Test Item Value Reference Range Comments TEG ACTIVATED CLOTTING TIME (BEAKER) (test 18.1 minutes 4.0-7.0 evoj=1901) TEG FIBRINOGEN ACTIVITY (BEAKER) (test 46.7 degrees 61.0-73.0 qaty=3434) TEG PLT. AGGREGATION (BEAKER) (test exam=5370) 51.7 MM 55.0-65.0 TEG FIBRINOLYSIS (BEAKER) (test qmpj=3453) 0.1 % 0.0-5.0 TGH ACTIVATED CLOTTING TIME (BEAKER) (test 8.6 minutes 4.0-7.0 audm=6013) TGH FIBRINOGEN ACTIVITY (BEAKER) (test 61.3 degrees 61.0-73.0 zsve=9557) TGH PLT. AGGREGATION (BEAKER) (test mmee=8303) 50.2 MM 55.0-65.0 TGH FIBRINOLYSIS (BEAKER) (test bmru=8245) 0.0 % 0.0-5.0 BLOOD GAS, [id number] 18:11:00 Test Item Value Reference Range Comments PH ARTERIAL (BEAKER) (test ntak=192) 7.56 7.35-7.45 PCO2 ARTERIAL (BEAKER) (test ztjn=219) 27 mmHg 35-45 PO2 ARTERIAL (BEAKER) (test uivl=697) 523 mmHg 80-90 O2 SATURATION ARTERIAL (BEAKER) (test bjpx=654) 99.9 % 96.0-97.0 HCO3 ARTERIAL (BEAKER) (test aydq=465) 24 mmol/L 21-29 BASE EXCESS ARTERIAL (BEAKER) (test kanr=129) 1.6 mmol/L -2.0-3.0 PATIENT TEMPERATURE (BEAKER) (test vjcm=9769) 37.0 C FIO2 (BEAKER) (test iwag=4414) 97.0 % SODIUM NA-STAT [id number] 18:11:00 Test Item Value Reference Range Comments SODIUM (BEAKER) (test uhck=386) 132 meq/L 135-148 GLUCOSE-STAT [id number] 18:11:00 Test Item Value Reference Range Comments GLUCOSE RANDOM (BEAKER) (test xjem=486) 200 mg/dL 70-110 HGB/HCT (H&H) - STAT [id number] 18:11:00 Test Item Value Reference Range Comments HEMOGLOBIN (BEAKER) (test xpsm=435) 8.2 g/dL 13.0-16.8 HEMATOCRIT (BEAKER) (test oruw=185) 24.0 % 40.0-50.0 POTASSIUM-STAT [id number] 18:07:00 Test Item Value Reference Range Comments POTASSIUM (BEAKER) (test bjek=473) 3.5 meq/L 3.6-5.5 [id number] 16:37:00 Test Item Value Reference Range Comments PHOSPHORUS (BEAKER) (test etce=639) 2.5 mg/dL 2.3-4.7 [id number] 16:37:00 Test Item Value Reference Range Comments MAGNESIUM (BEAKER) (test gdeh=969) 2.1 mg/dL 1.6-2.6 [id number] 16:29:00 Test Item Value Reference Range Comments PROTIME (BEAKER) (test ekhj=036) 15.1 seconds 11.7-14.7 INR (BEAKER) (test uqwj=871) 1.2 <=5.9 PARTIAL THROMBOPLASTIN TIME (BEAKER) (test 65.5 seconds 22.5-36.0 iscy=956) RECOMMENDED COUMADIN/WARFARIN INR THERAPY RANGESSTANDARD DOSE: 2.0 - 3.0 Includes: PROPHYLAXIS forvenous thrombosis, systemic embolization; TREATMENT for venous thrombosis and/or pulmonary embolus.HIGH RISK: Target INR is 2.5-3.5 for patients with mechanical heart valves.BLOOD GAS, [id number] 16:16:00 Test Item Value Reference Range Comments PH ARTERIAL (BEAKER) (test lujs=703) 7.64 7.35-7.45 PCO2 ARTERIAL (BEAKER) (test otoe=072) 24 mmHg 35-45 PO2 ARTERIAL (BEAKER) (test brog=649) 289 mmHg 80-90 O2 SATURATION ARTERIAL (BEAKER) (test lgly=174) 99.8 % 96.0-97.0 HCO3 ARTERIAL (BEAKER) (test mwfy=544) 25 mmol/L 21-29 BASE EXCESS ARTERIAL (BEAKER) (test dmge=387) 4.4 mmol/L -2.0-3.0 PATIENT TEMPERATURE (BEAKER) (test xqdu=5736) 36.7 C FIO2 (BEAKER) (test gonm=4438) 40.0 % CALCIUM, [id number] 16:14:00 Test Item Value Reference Range Comments CALCIUM IONIZED (BEAKER) (test wqie=738) 1.09 mmol/L 1.12-1.27 PH, BLOOD (BEAKER) (test eokl=3514) 7.64 GLUCOSE-STAT [id number] 16:12:00 Test Item Value Reference Range Comments GLUCOSE RANDOM (BEAKER) (test odcb=029) 182 mg/dL 70-110 CALCIUM, [id number] 12:53:00 Test Item Value Reference Range Comments CALCIUM IONIZED (BEAKER) (test hdkj=196) 1.12 mmol/L 1.12-1.27 PH, BLOOD (BEAKER) (test rdjp=8492) 7.51 BLOOD GAS, [id number] 12:53:00 Test Item Value Reference Range Comments PH ARTERIAL (BEAKER) (test cxfz=021) 7.51 7.35-7.45 PCO2 ARTERIAL (BEAKER) (test wlwm=023) 33 mmHg 35-45 PO2 ARTERIAL (BEAKER) (test kdre=416) 350 mmHg 80-90 O2 SATURATION ARTERIAL (BEAKER) (test bogs=860) 99.8 % 96.0-97.0 HCO3 ARTERIAL (BEAKER) (test xftv=950) 26 mmol/L 21-29 BASE EXCESS ARTERIAL (BEAKER) (test wlth=456) 2.5 mmol/L -2.0-3.0 PATIENT TEMPERATURE (BEAKER) (test metg=6550) 37.2 C FIO2 (BEAKER) (test lxka=7431) 40.0 % HGB/HCT (H&H) - STAT [id number] 12:53:00 Test Item Value Reference Range Comments HEMOGLOBIN (BEAKER) (test azhp=563) 8.3 g/dL 13.0-16.8 HEMATOCRIT (BEAKER) (test hjaw=189) 24.0 % 40.0-50.0 GLUCOSE-STAT [id number] 12:53:00 Test Item Value Reference Range Comments GLUCOSE RANDOM (BEAKER) (test bukq=576) 185 mg/dL 70-110 POTASSIUM-STAT [id number] 12:52:00 Test Item Value Reference Range Comments POTASSIUM (BEAKER) (test vupq=862) 3.7 meq/L 3.6-5.5 CBC W/PLT COUNT & AUTO [id number] 11:04:00 Test Item Value Reference Range Comments WHITE BLOOD CELL COUNT (BEAKER) (test dwyk=067) 11.1 K/ L 3.5-10.5 RED BLOOD CELL COUNT (BEAKER) (test gxse=668) 2.49 M/ L 4.63-6.08 HEMOGLOBIN (BEAKER) (test akhi=380) 8.1 GM/DL 13.7-17.5 HEMATOCRIT (BEAKER) (test bcfm=453) 24.2 % 40.1-51.0 MEAN CORPUSCULAR VOLUME (BEAKER) (test clqx=838) 97.2 fL 79.0-92.2 MEAN CORPUSCULAR HEMOGLOBIN (BEAKER) (test 32.5 pg 25.7-32.2 qtep=060) MEAN CORPUSCULAR HEMOGLOBIN CONC (BEAKER) (test 33.5 GM/DL 32.3-36.5 nybu=766) RED CELL DISTRIBUTION WIDTH (BEAKER) (test 17.8 % 11.6-14.4 cwfs=511) PLATELET COUNT (BEAKER) (test dtoj=614) 89 K/CU MM 150-450 MEAN PLATELET VOLUME (BEAKER) (test pttt=214) 11.4 fL 9.4-12.4 NUCLEATED RED BLOOD CELLS (BEAKER) (test 8 /100 WBC 0-0 yibw=072) POTASSIUM-STAT [id number] 10:49:00 Test Item Value Reference Range Comments POTASSIUM (BEAKER) (test jjrq=579) 3.8 meq/L 3.6-5.5 HEPARIN ASSAY - [id number] 09:55:00 Test Item Value Reference Range Comments UNFRACTIONATED HEPARIN-ANTI 10A (BEAKER) (test 0.14 u/ml 0.30-0.70 epca=3770) Recommendations for Monitoring Unfractionated Heparin Therapeutic Range: 0.3- 0.7 u/mL with continuous IV [id number] 09:54:00 Test Item Value Reference Range Comments PARTIAL THROMBOPLASTIN TIME (BEAKER) (test 57.6 seconds 22.5-36.0 ugns=134) BLOOD GAS, [id number] 09:33:00 Test Item Value Reference Range Comments PH ARTERIAL (BEAKER) (test vxha=299) 7.50 7.35-7.45 PCO2 ARTERIAL (BEAKER) (test dbgm=599) 33 mmHg 35-45 PO2 ARTERIAL (BEAKER) (test douq=091) 336 mmHg 80-90 O2 SATURATION ARTERIAL (BEAKER) (test ncub=108) 99.8 % 96.0-97.0 HCO3 ARTERIAL (BEAKER) (test xwxr=179) 25 mmol/L 21-29 BASE EXCESS ARTERIAL (BEAKER) (test cwig=654) 2.1 mmol/L -2.0-3.0 PATIENT TEMPERATURE (BEAKER) (test fqmz=8171) 37.2 C FIO2 (BEAKER) (test bspi=4370) 40.0 % GLUCOSE-STAT [id number] 09:33:00 Test Item Value Reference Range Comments GLUCOSE RANDOM (BEAKER) (test ixzk=997) 192 mg/dL 70-110 GLUCOSE-STAT [id number] 09:33:00 Test Item Value Reference Range Comments GLUCOSE RANDOM (BEAKER) (test eidt=784) 192 mg/dL 70-110 CALCIUM, [id number] 09:32:00 Test Item Value Reference Range Comments CALCIUM IONIZED (BEAKER) (test xddg=861) 1.15 mmol/L 1.12-1.27 PH, BLOOD (BEAKER) (test phuv=3935) 7.51 BLOOD GAS, [id number] 07:23:00 Test Item Value Reference Range Comments PH ARTERIAL (BEAKER) (test lwdl=777) 7.53 7.35-7.45 PCO2 ARTERIAL (BEAKER) (test yaiz=385) 30 mmHg 35-45 PO2 ARTERIAL (BEAKER) (test joln=123) 336 mmHg 80-90 O2 SATURATION ARTERIAL (BEAKER) (test drgy=310) 99.8 % 96.0-97.0 HCO3 ARTERIAL (BEAKER) (test kbuf=623) 24 mmol/L 21-29 BASE EXCESS ARTERIAL (BEAKER) (test rvkk=285) 1.8 mmol/L -2.0-3.0 PATIENT TEMPERATURE (BEAKER) (test ycbn=8737) 36.9 C FIO2 (BEAKER) (test uydp=1740) 40.0 % THROMBOELASTOGRAPH (TEG)[id number] 06:54:00 Test Item Value Reference Range Comments TEG ACTIVATED CLOTTING TIME (BEAKER) (test 28.1 minutes 4.0-7.0 kxol=3005) TEG FIBRINOGEN ACTIVITY (BEAKER) (test 28.6 degrees 61.0-73.0 ipwc=6948) TEG PLT. AGGREGATION (BEAKER) (test boxa=7776) 45.8 MM 55.0-65.0 TEG FIBRINOLYSIS (BEAKER) (test dwhf=3955) 0.0 % 0.0-5.0 TGH ACTIVATED CLOTTING TIME (BEAKER) (test 9.9 minutes 4.0-7.0 lqtg=4739) TGH FIBRINOGEN ACTIVITY (BEAKER) (test 61.4 degrees 61.0-73.0 rqiw=2345) TGH PLT. AGGREGATION (BEAKER) (test rejx=8808) 50.5 MM 55.0-65.0 TGH FIBRINOLYSIS (BEAKER) (test jqyb=3733) 0.0 % 0.0-5.0 BLOOD GAS, [id number] 06:13:00 Test Item Value Reference Range Comments PH ARTERIAL (BEAKER) (test mdes=528) 7.53 7.35-7.45 PCO2 ARTERIAL (BEAKER) (test yiar=247) 28 mmHg 35-45 PO2 ARTERIAL (BEAKER) (test zxbr=894) 337 mmHg 80-90 O2 SATURATION ARTERIAL (BEAKER) (test fwbl=652) 99.8 % 96.0-97.0 HCO3 ARTERIAL (BEAKER) (test hllh=640) 23 mmol/L 21-29 BASE EXCESS ARTERIAL (BEAKER) (test fzpc=374) 0.7 mmol/L -2.0-3.0 PATIENT TEMPERATURE (BEAKER) (test bcqx=6429) 36.8 C FIO2 (BEAKER) (test jaes=8584) 40.0 % BLOOD GAS, [id number] 05:13:00 Test Item Value Reference Range Comments PH ARTERIAL (BEAKER) (test wxqv=585) 7.46 7.35-7.45 PCO2 ARTERIAL (BEAKER) (test gqmh=913) 37 mmHg 35-45 PO2 ARTERIAL (BEAKER) (test dgcf=296) 522 mmHg 80-90 O2 SATURATION ARTERIAL (BEAKER) (test lcjx=767) 99.9 % 96.0-97.0 HCO3 ARTERIAL (BEAKER) (test ozmt=100) 26 mmol/L 21-29 BASE EXCESS ARTERIAL (BEAKER) (test ajov=984) 1.6 mmol/L -2.0-3.0 PATIENT TEMPERATURE (BEAKER) (test klxn=4738) 36.8 C FIO2 (BEAKER) (test isxs=0637) 100.0 % [id number] 04:41:00 Test Item Value Reference Range Comments PARTIAL THROMBOPLASTIN TIME (BEAKER) (test 61.3 seconds 22.5-36.0 afys=192) RAD, CHEST, 1 VIEW, NON [id number] 04:38:00Reason for exam:->impella/ECMO /intubationShould this be performed at the bedside?->YesFINAL REPORT CLINICAL INDICATION: Support lines. Comparison: 01/12/2018 The cardiomediastinal contours are stable. Central pulmonary vascular prominence and bilateral parenchymalopacities are previous. There is no pneumothorax. Support lines are stable. Signed: Kellen Parra MDReport Verified Date/Time: 04:38:41 Reading Location: [address] Reading Room HEPATIC FUNCTION [id number] 04:25:00 Test Item Value Reference Range Comments TOTAL PROTEIN (BEAKER) (test dfsu=714) 5.0 gm/dL 6.0-8.3 ALBUMIN (BEAKER) (test qyes=7966) 2.7 g/dL 3.5-5.0 BILIRUBIN TOTAL (BEAKER) (test gfnx=156) 4.6 mg/dL 0.2-1.2 BILIRUBIN DIRECT (BEAKER) (test sfvi=129) 3.6 mg/dL 0.1-0.5 ALKALINE PHOSPHATASE (BEAKER) (test pwwt=480) 43 U/L 40-150 AST (SGOT) (BEAKER) (test czys=235) 2670 U/L 5-34 ALT (SGPT) (BEAKER) (test yhgn=348) 2232 U/L 6-55 Specimen slightly [id number] 04:19:00 Test Item Value Reference Range Comments PHOSPHORUS (BEAKER) (test qung=495) 4.1 mg/dL 2.3-4.7 [id number] 04:19:00 Test Item Value Reference Range Comments MAGNESIUM (BEAKER) (test rlgf=617) 1.9 mg/dL 1.6-2.6 [id number] 04:19:00 Test Item Value Reference Range Comments CALCIUM (BEAKER) (test qmrr=807) 8.6 mg/dL 8.4-10.2 BASIC METABOLIC [id number] 04:19:00 Test Item Value Reference Range Comments SODIUM (BEAKER) (test 136 meq/L 136-145 matk=171) POTASSIUM (BEAKER) (test 4.2 meq/L 3.5-5.1 wvvp=164) CHLORIDE (BEAKER) (test 102 meq/L 98-107 jsqd=096) CO2 (BEAKER) (test 25 meq/L 22-29 nhda=814) BLOOD UREA NITROGEN 24 mg/dL 7-21 (BEAKER) (test babw=478) CREATININE (BEAKER) (test 1.80 mg/dL 0.57-1.25 ymzk=836) GLUCOSE RANDOM (BEAKER) 188 mg/dL 70-105 (test wkez=778) CALCIUM (BEAKER) (test 8.6 mg/dL 8.4-10.2 sgdp=882) EGFR (BEAKER) (test 47 mL/min/1.73 sq m ESTIMATED GFR IS NOT sdcn=6605) ACCURATE CREATININE CLEARANCE IN PREDICTING GLOMERULAR FILTRATION RATE. ESTIMATED GFR IS NOT APPLICABLE FOR DIALYSIS PATIENTS. Specimen slightly ictericLACTATE DEHYDROGENASE (LDH)2018-01-13 04:19:00 Test Item Value Reference Range Comments LACTATE DEHYDROGENASE (BEAKER) (test epnv=201) 1658 U/L 125-220 [id number] 04:16:00 Test Item Value Reference Range Comments FIBRINOGEN LEVEL (BEAKER) (test cgqz=555) 299 mg/dl 225-434 LACTIC ACID, ARTERIAL, WHOLE [id number] 04:16:00 Test Item Value Reference Range Comments LACTATE BLOOD ARTERIAL (2) (BEAKER) (test 0.8 mmol/L 0.5-2.2 xaiu=9878) Effective 01/04/2016: Units/Reference Range ChangeNew: 0.5-2.2 mmol/L Previous: 5 -20 mg/dLSpecimen slightly ictericPROTHROMBIN [id number] 04:15:00 Test Item Value Reference Range Comments PROTIME (BEAKER) (test aplo=291) 15.8 seconds 11.7-14.7 INR (BEAKER) (test cxau=083) 1.3 <=5.9 RECOMMENDED COUMADIN/WARFARIN INR THERAPY RANGESSTANDARD DOSE: 2.0 - 3.0 Includes: PROPHYLAXIS forvenous thrombosis, systemic embolization; TREATMENT for venous thrombosis and/or pulmonary embolus.HIGH RISK: Target INR is 2.5-3.5 for patients with mechanical heart valves.CALCIUM, [id number] 04:04:00 Test Item Value Reference Range Comments CALCIUM IONIZED (BEAKER) (test uimv=240) 1.15 mmol/L 1.12-1.27 PH, BLOOD (BEAKER) (test qqsv=7560) 7.33 BLOOD GAS, [id number] 04:03:00 Test Item Value Reference Range Comments PH ARTERIAL (BEAKER) (test rkop=297) 7.33 7.35-7.45 PCO2 ARTERIAL (BEAKER) (test fopn=969) 55 mmHg 35-45 PO2 ARTERIAL (BEAKER) (test ucnc=087) 324 mmHg 80-90 O2 SATURATION ARTERIAL (BEAKER) (test fecj=067) 99.7 % 96.0-97.0 HCO3 ARTERIAL (BEAKER) (test dmyn=009) 28 mmol/L 21-29 BASE EXCESS ARTERIAL (BEAKER) (test bfrl=950) 1.8 mmol/L -2.0-3.0 PATIENT TEMPERATURE (BEAKER) (test ognh=0442) 36.8 C FIO2 (BEAKER) (test zhjb=3606) 40.0 % PLATELET [id number] 03:58:00 Test Item Value Reference Range Comments PLATELET COUNT (BEAKER) (test jlvu=464) 89 K/CU MM 150-450 OXYGEN SATURATION, [id number] 03:57:00 Test Item Value Reference Range Comments O2 SATURATION (MEASURED) (BEAKER) (test rnfs=5157) 79.4 % BLOOD GAS, [id number] 01:19:00 Test Item Value Reference Range Comments PH ARTERIAL (BEAKER) (test kguf=062) 7.47 7.35-7.45 PCO2 ARTERIAL (BEAKER) (test snrp=896) 36 mmHg 35-45 PO2 ARTERIAL (BEAKER) (test tdcn=236) 328 mmHg 80-90 O2 SATURATION ARTERIAL (BEAKER) (test xgze=854) 99.8 % 96.0-97.0 HCO3 ARTERIAL (BEAKER) (test cjjt=523) 26 mmol/L 21-29 BASE EXCESS ARTERIAL (BEAKER) (test bzln=813) 1.8 mmol/L -2.0-3.0 PATIENT TEMPERATURE (BEAKER) (test aacr=6464) 36.6 C FIO2 (BEAKER) (test vdoe=9133) 40.0 % GLUCOSE-STAT [id number] 01:19:00 Test Item Value Reference Range Comments GLUCOSE RANDOM (BEAKER) (test iyrm=450) 177 mg/dL 70-110 POTASSIUM-STAT [id number] 01:18:00 Test Item Value Reference Range Comments POTASSIUM (BEAKER) (test hmah=154) 4.0 meq/L 3.6-5.5 CALCIUM, [id number] 01:17:00 Test Item Value Reference Range Comments CALCIUM IONIZED (BEAKER) (test iujl=503) 1.13 mmol/L 1.12-1.27 PH, BLOOD (BEAKER) (test mdpp=6980) 7.46 THROMBOELASTOGRAPH (TEG)2018-01-12 20:40:00 Test Item Value Reference Range Comments TEG ACTIVATED CLOTTING TIME (BEAKER) (test 12.3 minutes 4.0-7.0 xeky=2657) TEG FIBRINOGEN ACTIVITY (BEAKER) (test 56.6 degrees 61.0-73.0 uven=7765) TEG PLT. AGGREGATION (BEAKER) (test yxux=2005) 56.6 MM 55.0-65.0 TEG FIBRINOLYSIS (BEAKER) (test mdsa=4290) 6.6 % 0.0-5.0 TGH ACTIVATED CLOTTING TIME (BEAKER) (test 6.4 minutes 4.0-7.0 wczn=1161) TGH FIBRINOGEN ACTIVITY (BEAKER) (test 71.3 degrees 61.0-73.0 nsck=2750) TGH PLT. AGGREGATION (BEAKER) (test sfpg=5427) 60.5 MM 55.0-65.0 TGH FIBRINOLYSIS (BEAKER) (test ijvi=3933) 0.0 % 0.0-5.0 [id number] 20:36:00 Test Item Value Reference Range Comments POTASSIUM (BEAKER) (test jcxr=718) 4.2 meq/L 3.5-5.1 [id number] 20:36:00 Test Item Value Reference Range Comments MAGNESIUM (BEAKER) (test vxtx=602) 1.8 mg/dL 1.6-2.6 [id number] 20:36:00 Test Item Value Reference Range Comments PHOSPHORUS (BEAKER) (test mqfd=826) 3.5 mg/dL 2.3-4.7 LACTIC ACID, ARTERIAL, WHOLE [id number] 20:33:00 Test Item Value Reference Range Comments LACTATE BLOOD ARTERIAL (2) (BEAKER) (test 0.8 mmol/L 0.5-2.2 rxzn=8220) Effective 01/04/2016: Units/Reference Range ChangeNew: 0.5-2.2 mmol/L Previous: 5 -20 mg/dLSpecimen slightly ictericBLOOD GAS, [id number] 20:20:00 Test Item Value Reference Range Comments PH ARTERIAL (BEAKER) (test ipgu=950) 7.45 7.35-7.45 PCO2 ARTERIAL (BEAKER) (test udfg=118) 39 mmHg 35-45 PO2 ARTERIAL (BEAKER) (test mqcn=327) 289 mmHg 80-90 O2 SATURATION ARTERIAL (BEAKER) (test iamb=572) 99.7 % 96.0-97.0 HCO3 ARTERIAL (BEAKER) (test oiuj=477) 27 mmol/L 21-29 BASE EXCESS ARTERIAL (BEAKER) (test ijxe=161) 2.5 mmol/L -2.0-3.0 PATIENT TEMPERATURE (BEAKER) (test tgfu=7758) 36.8 C FIO2 (BEAKER) (test guvs=9943) 40.0 % GLUCOSE-STAT [id number] 20:20:00 Test Item Value Reference Range Comments GLUCOSE RANDOM (BEAKER) (test rpis=687) 180 mg/dL 70-110 [id number] 18:34:00 Test Item Value Reference Range Comments GLUCOSE RANDOM (BEAKER) (test gunb=882) 218 mg/dL 70-105 BLOOD GAS, [id number] 18:18:00 Test Item Value Reference Range Comments PH ARTERIAL (BEAKER) (test hmuo=349) 7.44 7.35-7.45 PCO2 ARTERIAL (BEAKER) (test akdk=046) 40 mmHg 35-45 PO2 ARTERIAL (BEAKER) (test cinm=581) 321 mmHg 80-90 O2 SATURATION ARTERIAL (BEAKER) (test ovoe=628) 99.7 % 96.0-97.0 HCO3 ARTERIAL (BEAKER) (test rvmu=410) 27 mmol/L 21-29 BASE EXCESS ARTERIAL (BEAKER) (test ibzv=559) 2.4 mmol/L -2.0-3.0 PATIENT TEMPERATURE (BEAKER) (test pdyt=6412) 36.9 C FIO2 (BEAKER) (test omjz=6027) 40.0 % [id number] 17:12:00 Test Item Value Reference Range Comments PARTIAL THROMBOPLASTIN TIME (BEAKER) (test 54.1 seconds 22.5-36.0 sfdn=383) [id number] 17:12:00 Test Item Value Reference Range Comments FIBRINOGEN LEVEL (BEAKER) (test krnr=674) 285 mg/dl 225-434 PROTHROMBIN [id number] 17:10:00 Test Item Value Reference Range Comments PROTIME (BEAKER) (test mtjy=290) 19.8 seconds 11.7-14.7 INR (BEAKER) (test kxli=690) 1.7 <=5.9 RECOMMENDED COUMADIN/WARFARIN INR THERAPY RANGESSTANDARD DOSE: 2.0 - 3.0 Includes: PROPHYLAXIS forvenous thrombosis, systemic embolization; TREATMENT for venous thrombosis and/or pulmonary embolus.HIGH RISK: Target INR is 2.5-3.5 for patients with mechanical heart valves.LACTIC ACID, ARTERIAL, WHOLE [id number] 17:03:00 Test Item Value Reference Range Comments LACTATE BLOOD ARTERIAL (2) (BEAKER) (test 0.8 mmol/L 0.5-2.2 ocnm=3589) Effective 01/04/2016: Units/Reference Range ChangeNew: 0.5-2.2 mmol/L Previous: 5 -20 mg/dLSpecimen slightly [id number] 17:01:00 Test Item Value Reference Range Comments POTASSIUM (BEAKER) (test xlfq=998) 4.5 meq/L 3.5-5.1 [id number] 17:01:00 Test Item Value Reference Range Comments GLUCOSE RANDOM (BEAKER) (test tjwh=890) 239 mg/dL 70-105 PLATELET [id number] 16:46:00 Test Item Value Reference Range Comments PLATELET COUNT (BEAKER) (test vnvi=617) 86 K/CU MM 150-450 BLOOD GAS, [id number] 16:36:00 Test Item Value Reference Range Comments PH ARTERIAL (BEAKER) (test agia=767) 7.46 7.35-7.45 PCO2 ARTERIAL (BEAKER) (test ekba=472) 39 mmHg 35-45 PO2 ARTERIAL (BEAKER) (test ibom=655) 256 mmHg 80-90 O2 SATURATION ARTERIAL (BEAKER) (test qdyv=050) 99.6 % 96.0-97.0 HCO3 ARTERIAL (BEAKER) (test ovom=003) 27 mmol/L 21-29 BASE EXCESS ARTERIAL (BEAKER) (test mxbl=153) 3.2 mmol/L -2.0-3.0 PATIENT TEMPERATURE (BEAKER) (test gieu=2173) 37.0 C CALCIUM, [id number] 16:36:00 Test Item Value Reference Range Comments CALCIUM IONIZED (BEAKER) (test jksq=337) 1.08 mmol/L 1.12-1.27 PH, BLOOD (BEAKER) (test aqco=5269) 7.46 [id number] 15:00:00 Test Item Value Reference Range Comments POTASSIUM (BEAKER) (test ungj=283) 4.7 meq/L 3.5-5.1 [id number] 15:00:00 Test Item Value Reference Range Comments GLUCOSE RANDOM (BEAKER) (test cjxa=574) 210 mg/dL 70-105 BLOOD GAS, [id number] 14:42:00 Test Item Value Reference Range Comments PH ARTERIAL (BEAKER) (test ezea=011) 7.45 7.35-7.45 PCO2 ARTERIAL (BEAKER) (test ahon=800) 41 mmHg 35-45 PO2 ARTERIAL (BEAKER) (test qncy=985) 308 mmHg 80-90 O2 SATURATION ARTERIAL (BEAKER) (test yhtm=854) 99.7 % 96.0-97.0 HCO3 ARTERIAL (BEAKER) (test tasb=488) 28 mmol/L 21-29 BASE EXCESS ARTERIAL (BEAKER) (test nxqw=309) 3.7 mmol/L -2.0-3.0 PATIENT TEMPERATURE (BEAKER) (test glpj=0282) 36.8 C FIO2 (BEAKER) (test vqpg=0753) 40.0 % RAD, CHEST, 1 VIEW, NON [id number] 14:41:00Reason for exam:->chest tube insertionFINAL REPORT CHEST [...] Wilkerson MDReport Verified Date/Time: 14:41:22 Reading Location: [facility] C0T Transitional Reading Room THROMBOELASTOGRAPH (TEG)2018-01-12 12:43:00 Test Item Value Reference Range Comments TEG ACTIVATED CLOTTING TIME (BEAKER) (test 30.7 minutes 4.0-7.0 ipax=5664) TEG FIBRINOGEN ACTIVITY (BEAKER) (test 23.3 degrees 61.0-73.0 jirw=4719) TEG PLT. AGGREGATION (BEAKER) (test xdee=7888) 54.6 MM 55.0-65.0 TEG FIBRINOLYSIS (BEAKER) (test wjwq=8139) 0.0 % 0.0-5.0 TGH ACTIVATED CLOTTING TIME (BEAKER) (test 11.6 minutes 4.0-7.0 zpwg=1369) TGH FIBRINOGEN ACTIVITY (BEAKER) (test 58.6 degrees 61.0-73.0 rroa=1447) TGH PLT. AGGREGATION (BEAKER) (test isqt=1994) 52.2 MM 55.0-65.0 TGH FIBRINOLYSIS (BEAKER) (test tyoe=9424) 0.0 % 0.0-5.0 [id number] 11:23:00 Test Item Value Reference Range Comments D-DIMER QUANTITATIVE (BEAKER) (test jknp=518) 1.67 MG/L FEU <0.50 Intended Use: The D-Dimer Assay can be used to aid in the diagnosis of Deep Vein Thrombosis (DVT) and Pulmonary Embolism Disease (PED).In patients with low pre-test probability, various studies concerning STA Liatest D-dimer test have reported that with a cutoff value of 0.50 MG/L FEU, the Negative Predictive Value (NPV) regarding the exclusion of thrombosis is within 95-100% range.[id number] 10:10:00 Test Item Value Reference Range Comments MAGNESIUM (BEAKER) (test 2.1 mg/dL 1.6-2.6 Specimen slightly hemolyzed otli=622) [id number] 10:10:00 Test Item Value Reference Range Comments PHOSPHORUS (BEAKER) (test 4.2 mg/dL 2.3-4.7 Specimen slightly hemolyzed daen=933) [id number] 10:10:00 Test Item Value Reference Range Comments POTASSIUM (BEAKER) (test 5.0 meq/L 3.5-5.1 Specimen slightly hemolyzed xpxo=076) [id number] 10:10:00 Test Item Value Reference Range Comments GLUCOSE RANDOM (BEAKER) (test kfvy=238) 204 mg/dL 70-105 [id number] 10:07:00 Test Item Value Reference Range Comments FIBRINOGEN LEVEL (BEAKER) (test mnku=861) 251 mg/dl 225-434 ANTITHROMBIN [id number] 10:04:00 Test Item Value Reference Range Comments ANTITHROMBIN III ACTIVITY (BEAKER) (test eule=318) 46.0 % 80.0-120.0 [id number] 09:58:00 Test Item Value Reference Range Comments PARTIAL THROMBOPLASTIN TIME (BEAKER) (test 59.8 seconds 22.5-36.0 znxo=707) PROTHROMBIN [id number] 09:57:00 Test Item Value Reference Range Comments PROTIME (BEAKER) (test bjqg=723) 19.3 seconds 11.7-14.7 INR (BEAKER) (test upnf=896) 1.6 <=5.9 RECOMMENDED COUMADIN/WARFARIN INR THERAPY RANGESSTANDARD DOSE: 2.0 - 3.0 Includes: PROPHYLAXIS forvenous thrombosis, systemic embolization; TREATMENT for venous thrombosis and/or pulmonary embolus.HIGH RISK: Target INR is 2.5-3.5 for patients with mechanical heart valves.PLATELET [id number] 09:49:00 Test Item Value Reference Range Comments PLATELET COUNT (BEAKER) (test scbz=526) 94 K/CU MM 150-450 BLOOD GAS, [id number] 09:47:00 Test Item Value Reference Range Comments PH ARTERIAL (BEAKER) (test fuuw=588) 7.47 7.35-7.45 PCO2 ARTERIAL (BEAKER) (test zijh=641) 38 mmHg 35-45 PO2 ARTERIAL (BEAKER) (test pmfa=820) 259 mmHg 80-90 O2 SATURATION ARTERIAL (BEAKER) (test agry=337) 99.6 % 96.0-97.0 HCO3 ARTERIAL (BEAKER) (test uaff=678) 27 mmol/L 21-29 BASE EXCESS ARTERIAL (BEAKER) (test bszq=873) 3.2 mmol/L -2.0-3.0 PATIENT TEMPERATURE (BEAKER) (test ozss=3250) 36.9 C FIO2 (BEAKER) (test bqwt=4362) 40.0 % CALCIUM, [id number] 09:46:00 Test Item Value Reference Range Comments CALCIUM IONIZED (BEAKER) (test prrs=124) 1.12 mmol/L 1.12-1.27 PH, BLOOD (BEAKER) (test hdsd=6037) 7.47 HEPARIN ASSAY - [id number] 08:21:00 Test Item Value Reference Range Comments UNFRACTIONATED HEPARIN-ANTI 10A (BEAKER) (test < u/ml 0.30-0.70 jtjz=8767) Recommendations for Monitoring Unfractionated Heparin Therapeutic Range: 0.3- 0.7 u/mL with continuous IV infusionLACTATE DEHYDROGENASE (LDH)2018-01-12 07:40: 00 Test Item Value Reference Range Comments LACTATE DEHYDROGENASE (BEAKER) (test qaru=002) 3247 U/L 125-220 [id number] 07:38:00 Test Item Value Reference Range Comments MAGNESIUM (BEAKER) (test vgqw=752) 2.3 mg/dL 1.6-2.6 [id number] 07:38:00 Test Item Value Reference Range Comments GLUCOSE RANDOM (BEAKER) (test hcks=401) 217 mg/dL 70-105 LACTIC ACID, ARTERIAL, WHOLE [id number] 07:27:00 Test Item Value Reference Range Comments LACTATE BLOOD ARTERIAL (2) (BEAKER) (test 1.4 mmol/L 0.5-2.2 mqcs=4120) Effective 01/04/2016: Units/Reference Range ChangeNew: 0.5-2.2 mmol/L Previous: 5 -20 mg/dLSpecimen slightly ictericGLUCOSE-STAT [id number] 06:55:00 Test Item Value Reference Range Comments GLUCOSE RANDOM (BEAKER) (test bxlz=623) 212 mg/dL 70-110 BLOOD GAS, [id number] 06:55:00 Test Item Value Reference Range Comments PH ARTERIAL (BEAKER) (test zpwo=230) 7.44 7.35-7.45 PCO2 ARTERIAL (BEAKER) (test sjks=479) 40 mmHg 35-45 PO2 ARTERIAL (BEAKER) (test zhqf=094) 259 mmHg 80-90 O2 SATURATION ARTERIAL (BEAKER) (test fnrb=735) 99.6 % 96.0-97.0 HCO3 ARTERIAL (BEAKER) (test ysnu=117) 26 mmol/L 21-29 BASE EXCESS ARTERIAL (BEAKER) (test kvym=757) 2.1 mmol/L -2.0-3.0 PATIENT TEMPERATURE (BEAKER) (test csyj=4566) 36.7 C FIO2 (BEAKER) (test cqwh=9614) 40.0 % POTASSIUM-STAT [id number] 06:52:00 Test Item Value Reference Range Comments POTASSIUM (BEAKER) (test ermg=925) 4.8 meq/L 3.6-5.5 BLOOD GAS, [id number] 06:43:00 Test Item Value Reference Range Comments PH ARTERIAL (BEAKER) (test gkch=746) 7.33 7.35-7.45 PCO2 ARTERIAL (BEAKER) (test ojrq=051) 55 mmHg 35-45 PO2 ARTERIAL (BEAKER) (test kwbv=373) 475 mmHg 80-90 O2 SATURATION ARTERIAL (BEAKER) (test wqjx=254) 99.8 % 96.0-97.0 HCO3 ARTERIAL (BEAKER) (test hudm=023) 28 mmol/L 21-29 BASE EXCESS ARTERIAL (BEAKER) (test jhks=396) 0.8 mmol/L -2.0-3.0 PATIENT TEMPERATURE (BEAKER) (test nbew=9599) 36.7 C FIO2 (BEAKER) (test ivzo=1952) 100.0 % RAD, CHEST, 1 VIEW, NON [id number] 06:14:00Reason for exam:->impella/ECMO /intubationShould this be performed [...] Taylor Verified Date/Time: 01/12/2018 06:14:29 Reading Location: [address] Reading Room LACTATE DEHYDROGENASE (LDH)01-12 05:03:00 Test Item Value Reference Range Comments LACTATE DEHYDROGENASE (BEAKER) (test hdfp=503) 3014 U/L 125-220 HEPATIC FUNCTION [id number] 05:03:00 Test Item Value Reference Range Comments TOTAL PROTEIN (BEAKER) (test oowj=311) 4.8 gm/dL 6.0-8.3 ALBUMIN (BEAKER) (test vlhu=2789) 2.7 g/dL 3.5-5.0 BILIRUBIN TOTAL (BEAKER) (test rkcl=578) 4.3 mg/dL 0.2-1.2 BILIRUBIN DIRECT (BEAKER) (test pmcn=206) 3.2 mg/dL 0.1-0.5 ALKALINE PHOSPHATASE (BEAKER) (test vmiv=320) 43 U/L 40-150 AST (SGOT) (BEAKER) (test qfyw=950) 2716 U/L 5-34 ALT (SGPT) (BEAKER) (test qcuq=266) 1544 U/L 6-55 Specimen slightly [id number] 05:01:00 Test Item Value Reference Range Comments PHOSPHORUS (BEAKER) (test xbxs=472) 5.0 mg/dL 2.3-4.7 [id number] 05:01:00 Test Item Value Reference Range Comments MAGNESIUM (BEAKER) (test fpzu=001) 2.1 mg/dL 1.6-2.6 [id number] 05:01:00 Test Item Value Reference Range Comments CALCIUM (BEAKER) (test awfg=247) 8.5 mg/dL 8.4-10.2 BASIC METABOLIC [id number] 05:01:00 Test Item Value Reference Range Comments SODIUM (BEAKER) (test 137 meq/L 136-145 ipvv=623) POTASSIUM (BEAKER) (test 5.1 meq/L 3.5-5.1 wfoa=636) CHLORIDE (BEAKER) (test 103 meq/L 98-107 jolc=944) CO2 (BEAKER) (test 24 meq/L 22-29 kcfm=011) BLOOD UREA NITROGEN 25 mg/dL 7-21 (BEAKER) (test lbpx=083) CREATININE (BEAKER) (test 2.54 mg/dL 0.57-1.25 zzvt=580) GLUCOSE RANDOM (BEAKER) 208 mg/dL 70-105 (test uokz=034) CALCIUM (BEAKER) (test 8.5 mg/dL 8.4-10.2 xifg=093) EGFR (BEAKER) (test 32 mL/min/1.73 sq m ESTIMATED GFR IS NOT xkui=4015) ACCURATE CREATININE CLEARANCE IN PREDICTING GLOMERULAR FILTRATION RATE. ESTIMATED GFR IS NOT APPLICABLE FOR DIALYSIS PATIENTS. Specimen slightly ictericLACTIC ACID, ARTERIAL, WHOLE [id number] 04:42:00 Test Item Value Reference Range Comments LACTATE BLOOD ARTERIAL (2) (BEAKER) (test 1.5 mmol/L 0.5-2.2 pkwd=7992) Effective 01/04/2016: Units/Reference Range ChangeNew: 0.5-2.2 mmol/L Previous: 5 -20 mg/dLSpecimen slightly [id number] 04:38:00 Test Item Value Reference Range Comments FIBRINOGEN LEVEL (BEAKER) (test whls=146) 252 mg/dl 225-434 [id number] 04:38:00 Test Item Value Reference Range Comments PARTIAL THROMBOPLASTIN TIME (BEAKER) (test 54.6 seconds 22.5-36.0 hdfm=208) CBC W/PLT COUNT & AUTO [id number] 04:37:00 Test Item Value Reference Range Comments WHITE BLOOD CELL COUNT (BEAKER) (test ljlb=603) 10.9 K/ L 3.5-10.5 RED BLOOD CELL COUNT (BEAKER) (test ooly=756) 2.74 M/ L 4.63-6.08 HEMOGLOBIN (BEAKER) (test vrjj=207) 8.7 GM/DL 13.7-17.5 HEMATOCRIT (BEAKER) (test fram=219) 25.8 % 40.1-51.0 MEAN CORPUSCULAR VOLUME (BEAKER) (test dbvl=468) 94.2 fL 79.0-92.2 MEAN CORPUSCULAR HEMOGLOBIN (BEAKER) (test 31.8 pg 25.7-32.2 nfrp=958) MEAN CORPUSCULAR HEMOGLOBIN CONC (BEAKER) (test 33.7 GM/DL 32.3-36.5 koyt=752) RED CELL DISTRIBUTION WIDTH (BEAKER) (test 18.6 % 11.6-14.4 eiir=531) PLATELET COUNT (BEAKER) (test pqfg=151) 110 K/CU MM 150-450 MEAN PLATELET VOLUME (BEAKER) (test opbk=912) 11.8 fL 9.4-12.4 NUCLEATED RED BLOOD CELLS (BEAKER) (test 3 /100 WBC 0-0 ztdt=054) NEUTROPHILS RELATIVE PERCENT (BEAKER) (test 91 % nfyq=301) LYMPHOCYTES RELATIVE PERCENT (BEAKER) (test 3 % okxc=403) MONOCYTES RELATIVE PERCENT (BEAKER) (test 5 % lrdh=176) EOSINOPHILS RELATIVE PERCENT (BEAKER) (test 0 % onvw=305) BASOPHILS RELATIVE PERCENT (BEAKER) (test 0 % uwkf=556) NEUTROPHILS ABSOLUTE COUNT (BEAKER) (test 9.98 K/ L 1.78-5.38 ejsb=881) LYMPHOCYTES ABSOLUTE COUNT (BEAKER) (test 0.31 K/ L 1.32-3.57 mezr=264) MONOCYTES ABSOLUTE COUNT (BEAKER) (test 0.55 K/ L 0.30-0.82 dmsj=876) EOSINOPHILS ABSOLUTE COUNT (BEAKER) (test 0.00 K/ L 0.04-0.54 dyos=587) BASOPHILS ABSOLUTE COUNT (BEAKER) (test 0.02 K/ L 0.01-0.08 quzi=806) IMMATURE GRANULOCYTES-RELATIVE PERCENT (BEAKER) 1 % 0-1 (test zwdq=4373) PROTHROMBIN [id number] 04:37:00 Test Item Value Reference Range Comments PROTIME (BEAKER) (test gsjf=504) 19.9 seconds 11.7-14.7 INR (BEAKER) (test jlfi=412) 1.7 <=5.9 RECOMMENDED COUMADIN/WARFARIN INR THERAPY RANGESSTANDARD DOSE: 2.0 - 3.0 Includes: PROPHYLAXIS forvenous thrombosis, systemic embolization; TREATMENT for venous thrombosis and/or pulmonary embolus.HIGH RISK: Target INR is 2.5-3.5 for patients with mechanical heart valves.CALCIUM, [id number] 04:31:00 Test Item Value Reference Range Comments CALCIUM IONIZED (BEAKER) (test yicm=960) 1.12 mmol/L 1.12-1.27 PH, BLOOD (BEAKER) (test pwam=2298) 7.42 BLOOD GAS, [id number] 04:30:00 Test Item Value Reference Range Comments PH ARTERIAL (BEAKER) (test hhfe=749) 7.42 7.35-7.45 PCO2 ARTERIAL (BEAKER) (test fiin=392) 41 mmHg 35-45 PO2 ARTERIAL (BEAKER) (test ipis=807) 226 mmHg 80-90 O2 SATURATION ARTERIAL (BEAKER) (test oygj=412) 99.5 % 96.0-97.0 HCO3 ARTERIAL (BEAKER) (test fooh=772) 26 mmol/L 21-29 BASE EXCESS ARTERIAL (BEAKER) (test dybt=818) 1.6 mmol/L -2.0-3.0 PATIENT TEMPERATURE (BEAKER) (test qads=1570) 36.8 C FIO2 (BEAKER) (test foxy=2617) 40.0 % PLATELET [id number] 04:23:00 Test Item Value Reference Range Comments PLATELET COUNT (BEAKER) (test iezk=390) 110 K/CU MM 150-450 OXYGEN SATURATION, [id number] 04:14:00 Test Item Value Reference Range Comments O2 SATURATION (MEASURED) (BEAKER) (test zwzw=1712) 79.7 % [id number] 02:54:00 Test Item Value Reference Range Comments PARTIAL THROMBOPLASTIN TIME (BEAKER) (test 134.3 seconds 22.5-36.0 bdyn=452) [id number] 02:25:00 Test Item Value Reference Range Comments PARTIAL THROMBOPLASTIN TIME (BEAKER) (test 94.0 seconds 22.5-36.0 ibuw=934) BLOOD GAS, [id number] 01:56:00 Test Item Value Reference Range Comments PH ARTERIAL (BEAKER) (test cord=254) 7.61 7.35-7.45 PCO2 ARTERIAL (BEAKER) (test vvjn=869) 25 mmHg 35-45 PO2 ARTERIAL (BEAKER) (test uncx=553) 209 mmHg 80-90 O2 SATURATION ARTERIAL (BEAKER) (test glqp=068) 99.6 % 96.0-97.0 HCO3 ARTERIAL (BEAKER) (test njcy=882) 25 mmol/L 21-29 BASE EXCESS ARTERIAL (BEAKER) (test qnah=050) 3.4 mmol/L -2.0-3.0 PATIENT TEMPERATURE (BEAKER) (test uiaz=8895) 36.5 C FIO2 (BEAKER) (test drmr=8630) 40.0 % GLUCOSE-STAT [id number] 01:53:00 Test Item Value Reference Range Comments GLUCOSE RANDOM (BEAKER) (test odfd=994) 201 mg/dL 70-110 POTASSIUM-STAT [id number] 01:52:00 Test Item Value Reference Range Comments POTASSIUM (BEAKER) (test cpqh=170) 4.9 meq/L 3.6-5.5 LACTIC ACID, ARTERIAL, WHOLE [id number] 01:18:00 Test Item Value Reference Range Comments LACTATE BLOOD ARTERIAL (2) (BEAKER) (test 2.0 mmol/L 0.5-2.2 cfmt=6168) Effective 01/04/2016: Units/Reference Range ChangeNew: 0.5-2.2 mmol/L Previous: 5 -20 mg/dLSpecimen slightly [id number] 01:18:00 Test Item Value Reference Range Comments POTASSIUM (BEAKER) (test bqis=129) 5.1 meq/L 3.5-5.1 [id number] 01:18:00 Test Item Value Reference Range Comments GLUCOSE RANDOM (BEAKER) (test lidy=829) 194 mg/dL 70-105 PROTHROMBIN [id number] 01:15:00 Test Item Value Reference Range Comments PROTIME (BEAKER) (test vjkg=548) 21.2 seconds 11.7-14.7 INR (BEAKER) (test renc=757) 1.8 <=5.9 RECOMMENDED COUMADIN/WARFARIN INR THERAPY RANGESSTANDARD DOSE: 2.0 - 3.0 Includes: PROPHYLAXIS forvenous thrombosis, systemic embolization; TREATMENT for venous thrombosis and/or pulmonary embolus.HIGH RISK: Target INR is 2.5-3.5 for patients with mechanical heart valves.[id number] 01:15:00 Test Item Value Reference Range Comments FIBRINOGEN LEVEL (BEAKER) (test camv=560) 233 mg/dl 225-434 PLATELET [id number] 01:01:00 Test Item Value Reference Range Comments PLATELET COUNT (BEAKER) (test jkbr=490) 84 K/CU MM 150-450 BLOOD GAS, [id number] 01:00:00 Test Item Value Reference Range Comments PH ARTERIAL (BEAKER) (test beac=844) 7.43 7.35-7.45 PCO2 ARTERIAL (BEAKER) (test oyup=403) 40 mmHg 35-45 PO2 ARTERIAL (BEAKER) (test hhgj=925) 285 mmHg 80-90 O2 SATURATION ARTERIAL (BEAKER) (test jxvk=922) 99.7 % 96.0-97.0 HCO3 ARTERIAL (BEAKER) (test ndqf=450) 26 mmol/L 21-29 BASE EXCESS ARTERIAL (BEAKER) (test pono=478) 1.7 mmol/L -2.0-3.0 PATIENT TEMPERATURE (BEAKER) (test dcum=8238) 36.7 C FIO2 (BEAKER) (test dedf=1445) 40.0 % CALCIUM, [id number] 01:00:00 Test Item Value Reference Range Comments CALCIUM IONIZED (BEAKER) (test afnt=039) 1.08 mmol/L 1.12-1.27 PH, BLOOD (BEAKER) (test xcer=9537) 7.43 THROMBOELASTOGRAPH (TEG)2018-01-12 00:01:00 Test Item Value Reference Range Comments TEG ACTIVATED CLOTTING TIME (BEAKER) minutes 4.0-7.0 No clot detected (test ynyb=9892) TGH ACTIVATED CLOTTING TIME (BEAKER) 13.3 minutes 4.0-7.0 (test stij=7424) [facility] FIBRINOGEN ACTIVITY (BEAKER) (test 44.7 degrees 61.0-73.0 halc=2205) [facility] PLT. AGGREGATION (BEAKER) (test 46.3 MM 55.0-65.0 unzz=2796) [facility] FIBRINOLYSIS (BEAKER) (test 0.0 % 0.0-5.0 ysar=4469) GLUCOSE-STAT [id number] 23:53:00 Test Item Value Reference Range Comments GLUCOSE RANDOM (BEAKER) (test ulgc=300) 182 mg/dL 70-110 BLOOD GAS, [id number] 23:52:00 Test Item Value Reference Range Comments PH ARTERIAL (BEAKER) (test twcf=045) 7.52 7.35-7.45 PCO2 ARTERIAL (BEAKER) (test kcvw=808) 31 mm Hg 35-45 PO2 ARTERIAL (BEAKER) (test pzfq=493) 280 mm Hg 80-90 O2 SATURATION ARTERIAL (BEAKER) (test djdy=012) 99.7 % 96.0-97.0 HCO3 ARTERIAL (BEAKER) (test jval=463) 25 mmol/L 21-29 BASE EXCESS ARTERIAL (BEAKER) (test dypb=841) 2.3 mmol/L -2.0-3.0 PATIENT TEMPERATURE (BEAKER) (test efbv=4859) 36.7 FIO2 (BEAKER) (test kyaf=5298) 40 [id number] 23:05:00 Test Item Value Reference Range Comments PARTIAL THROMBOPLASTIN TIME (BEAKER) (test > seconds 22.5-36.0 khgg=537) BLOOD GAS, [id number] 23:01:00 Test Item Value Reference Range Comments PH ARTERIAL (BEAKER) (test gqst=542) 7.42 7.35-7.45 PCO2 ARTERIAL (BEAKER) (test hmdw=111) 44 mmHg 35-45 PO2 ARTERIAL (BEAKER) (test lgrv=819) 541 mmHg 80-90 O2 SATURATION ARTERIAL (BEAKER) (test ynbd=091) 99.9 % 96.0-97.0 HCO3 ARTERIAL (BEAKER) (test ikge=508) 28 mmol/L 21-29 BASE EXCESS ARTERIAL (BEAKER) (test pjrb=659) 2.6 mmol/L -2.0-3.0 PATIENT TEMPERATURE (BEAKER) (test pkks=9821) 37.0 C FIO2 (BEAKER) (test cqls=7993) 100.0 % [id number] 22:46:00 Test Item Value Reference Range Comments FIBRINOGEN LEVEL (BEAKER) (test vimj=468) 223 mg/dl 225-434 PROTHROMBIN [id number] 22:45:00 Test Item Value Reference Range Comments PROTIME (BEAKER) (test danc=065) 23.0 seconds 11.7-14.7 INR (BEAKER) (test dgrb=843) 2.0 <=5.9 RECOMMENDED COUMADIN/WARFARIN INR THERAPY RANGESSTANDARD DOSE: 2.0 - 3.0 Includes: PROPHYLAXIS forvenous thrombosis, systemic embolization; TREATMENT for venous thrombosis and/or pulmonary embolus.HIGH RISK: Target INR is 2.5-3.5 for patients with mechanical heart valves.BLOOD GAS, [id number] 22:22:00 Test Item Value Reference Range Comments PH ARTERIAL (BEAKER) (test vqow=408) 7.67 7.35-7.45 PCO2 ARTERIAL (BEAKER) (test ojtd=647) 20 mmHg 35-45 PO2 ARTERIAL (BEAKER) (test fgmt=840) 261 mmHg 80-90 O2 SATURATION ARTERIAL (BEAKER) (test jndf=886) 99.8 % 96.0-97.0 HCO3 ARTERIAL (BEAKER) (test ttzp=586) 23 mmol/L 21-29 BASE EXCESS ARTERIAL (BEAKER) (test cpll=703) 2.6 mmol/L -2.0-3.0 PATIENT TEMPERATURE (BEAKER) (test skbg=5464) 35.8 C FIO2 (BEAKER) (test vitj=8265) 40.0 % CALCIUM, [id number] 22:21:00 Test Item Value Reference Range Comments CALCIUM IONIZED (BEAKER) (test jhfq=552) 1.05 mmol/L 1.12-1.27 PH, BLOOD (BEAKER) (test snse=3784) 7.67 PLATELET [id number] 22:21:00 Test Item Value Reference Range Comments PLATELET COUNT (BEAKER) (test ibvb=890) 71 K/CU MM 150-450 GLUCOSE-STAT [id number] 22:20:00 Test Item Value Reference Range Comments GLUCOSE RANDOM (BEAKER) (test ogaz=096) 189 mg/dL 70-110 POTASSIUM-STAT [id number] 22:19:00 Test Item Value Reference Range Comments POTASSIUM (BEAKER) (test xvnn=791) 5.1 meq/L 3.6-5.5 THROMBOELASTOGRAPH (TEG)2018-01-11 21:07:00 Test Item Value Reference Range Comments TEG ACTIVATED CLOTTING TIME (BEAKER) minutes 4.0-7.0 No clot detected. (test ewpw=1374) TEG FIBRINOGEN ACTIVITY (BEAKER) (test degrees 61.0-73.0 No clot detected. kbhd=0666) TEG PLT. AGGREGATION (BEAKER) (test MM 55.0-65.0 No clot detected. bsth=9712) TEG FIBRINOLYSIS (BEAKER) (test % 0.0-5.0 No clot detected. ogtp=7294) TGH ACTIVATED CLOTTING TIME (BEAKER) 15.3 minutes 4.0-7.0 (test zvkp=9859) TGH FIBRINOGEN ACTIVITY (BEAKER) (test 42.8 degrees 61.0-73.0 hrgm=2620) TGH PLT. AGGREGATION (BEAKER) (test 43.9 MM 55.0-65.0 vodc=7082) TGH FIBRINOLYSIS (BEAKER) (test 0.0 % 0.0-5.0 oihk=9351) LACTATE DEHYDROGENASE (LDH)2018-01-11 20:57:00 Test Item Value Reference Range Comments LACTATE DEHYDROGENASE (BEAKER) (test cskt=847) 2133 U/L 125-220 [id number] 20:55:00 Test Item Value Reference Range Comments POTASSIUM (BEAKER) (test zmgb=370) 5.4 meq/L 3.5-5.1 [id number] 20:55:00 Test Item Value Reference Range Comments MAGNESIUM (BEAKER) (test ubbp=562) 1.6 mg/dL 1.6-2.6 [id number] 20:55:00 Test Item Value Reference Range Comments PHOSPHORUS (BEAKER) (test mhfr=449) 2.9 mg/dL 2.3-4.7 GLUCOSE-STAT [id number] 20:31:00 Test Item Value Reference Range Comments GLUCOSE RANDOM (BEAKER) (test hicf=026) 166 mg/dL 70-110 POTASSIUM-STAT [id number] 20:30:00 Test Item Value Reference Range Comments POTASSIUM (BEAKER) (test evqu=516) 5.2 meq/L 3.6-5.5 BLOOD GAS, [id number] 20:30:00 Test Item Value Reference Range Comments PH ARTERIAL (BEAKER) (test fnet=503) 7.59 7.35-7.45 PCO2 ARTERIAL (BEAKER) (test twje=472) 24 mmHg 35-45 PO2 ARTERIAL (BEAKER) (test vjgk=081) 151 mmHg 80-90 O2 SATURATION ARTERIAL (BEAKER) (test pgmc=357) 99.3 % 96.0-97.0 HCO3 ARTERIAL (BEAKER) (test wtxm=124) 23 mmol/L 21-29 BASE EXCESS ARTERIAL (BEAKER) (test dhfn=218) 1.6 mmol/L -2.0-3.0 PATIENT TEMPERATURE (BEAKER) (test bjta=5694) 36.5 C FIO2 (BEAKER) (test ukym=3761) 40.0 % OXYGEN SATURATION, [id number] 18:46:00 Test Item Value Reference Range Comments O2 SATURATION (MEASURED) (BEAKER) (test tcye=1111) 81.5 % RAD, CHEST, 1 VIEW, NON [id number] 18:27:00Reason for exam:->impella/ ECMO placementShould this be [...] Verified Date/ Time: 01/11/2018 18:27:33 Reading Location: [facility] [id number] Ortho Consult Reading Room 06: 27 [id number] 18:11:00 Test Item Value Reference Range Comments PARTIAL THROMBOPLASTIN TIME (BEAKER) (test > seconds 22.5-36.0 fdju=412) LACTATE DEHYDROGENASE (LDH)2018-01-11 18:09:00 Test Item Value Reference Range Comments LACTATE DEHYDROGENASE (BEAKER) 1590 U/L 125-220 Specimen slightly hemolyzed (test mzvc=349) BASIC METABOLIC [id number] 18:08:00 Test Item Value Reference Range Comments SODIUM (BEAKER) (test 139 meq/L 136-145 cpym=272) POTASSIUM (BEAKER) (test 6.5 meq/L 3.5-5.1 Specimen slightly tupl=124) hemolyzed CHLORIDE (BEAKER) (test 106 meq/L 98-107 fefp=425) CO2 (BEAKER) (test 15 meq/L 22-29 amjh=398) BLOOD UREA NITROGEN 27 mg/dL 7-21 (BEAKER) (test pqhl=898) CREATININE (BEAKER) (test 3.65 mg/dL 0.57-1.25 Specimen slightly wdsm=237) hemolyzed GLUCOSE RANDOM (BEAKER) 162 mg/dL 70-105 (test cayw=302) CALCIUM (BEAKER) (test 8.8 mg/dL 8.4-10.2 dyyt=375) EGFR (BEAKER) (test 21 mL/min/1.73 sq m ESTIMATED GFR IS NOT djkk=2922) ACCURATE CREATININE CLEARANCE IN PREDICTING GLOMERULAR FILTRATION RATE. ESTIMATED GFR IS NOT APPLICABLE FOR DIALYSIS PATIENTS. [id number] 17:54:00 Test Item Value Reference Range Comments MAGNESIUM (BEAKER) (test 1.8 mg/dL 1.6-2.6 Specimen slightly hemolyzed vgke=814) [id number] 17:54:00 Test Item Value Reference Range Comments PHOSPHORUS (BEAKER) (test 4.6 mg/dL 2.3-4.7 Specimen slightly hemolyzed shjx=234) LACTIC ACID, ARTERIAL, WHOLE [id number] 17:53:00 Test Item Value Reference Range Comments LACTATE BLOOD ARTERIAL (2) 10.8 mmol/L 0.5-2.2 Specimen slightly hemolyzed (BEAKER) (test rcpy=9505) Effective 01/04/2016: Units/Reference Range ChangeNew: 0.5-2.2 mmol/L Previous: 5 -20 mg/[id number] 17:46:00 Test Item Value Reference Range Comments D-DIMER QUANTITATIVE (BEAKER) (test ybsi=791) 0.82 MG/L FEU <0.50 Intended Use: The D-Dimer Assay can be used to aid in the diagnosis of Deep Vein Thrombosis (DVT) and Pulmonary Embolism Disease (PED).In patients with low pre-test probability, various studies concerning STA Liatest D-dimer test have reported that with a cutoff value of 0.50 MG/L FEU, the Negative Predictive Value (NPV) regarding the exclusion of thrombosis is within 95-100% range.[id number] 17:46:00 Test Item Value Reference Range Comments FIBRINOGEN LEVEL (BEAKER) (test rqnq=157) 201 mg/dl 225-434 PROTHROMBIN [id number] 17:45:00 Test Item Value Reference Range Comments PROTIME (BEAKER) (test cwlu=953) 24.4 seconds 11.7-14.7 INR (BEAKER) (test flhq=554) 2.2 <=5.9 RECOMMENDED COUMADIN/WARFARIN INR THERAPY RANGESSTANDARD DOSE: 2.0 - 3.0 Includes: PROPHYLAXIS forvenous thrombosis, systemic embolization; TREATMENT for venous thrombosis and/or pulmonary embolus.HIGH RISK: Target INR is 2.5-3.5 for patients with mechanical heart valves.BLOOD GAS, [id number] 17:44:00 Test Item Value Reference Range Comments PH ARTERIAL (BEAKER) (test hdaf=015) 7.52 7.35-7.45 PCO2 ARTERIAL (BEAKER) (test dxnv=798) 21 mmHg 35-45 PO2 ARTERIAL (BEAKER) (test srbn=944) 231 mmHg 80-90 O2 SATURATION ARTERIAL (BEAKER) (test pnfl=164) 99.6 % 96.0-97.0 HCO3 ARTERIAL (BEAKER) (test wtns=448) 17 mmol/L 21-29 BASE EXCESS ARTERIAL (BEAKER) (test kpil=745) -4.9 mmol/L -2.0-3.0 PATIENT TEMPERATURE (BEAKER) (test kgjs=1145) 36.1 C FIO2 (BEAKER) (test voja=8816) 40.0 % SODIUM NA-STAT [id number] 17:44:00 Test Item Value Reference Range Comments SODIUM (BEAKER) (test agla=340) 134 meq/L 135-148 POTASSIUM-STAT [id number] 17:44:00 Test Item Value Reference Range Comments POTASSIUM (BEAKER) (test ozqp=709) 6.2 meq/L 3.6-5.5 GLUCOSE-STAT [id number] 17:44:00 Test Item Value Reference Range Comments GLUCOSE RANDOM (BEAKER) (test mpgm=461) 147 mg/dL 70-110 HGB/HCT (H&H) - STAT [id number] 17:44:00 Test Item Value Reference Range Comments HEMOGLOBIN (BEAKER) (test rayj=203) 9.9 g/dL 13.0-16.8 HEMATOCRIT (BEAKER) (test eyev=483) 29.0 % 40.0-50.0 CALCIUM, [id number] 17:41:00 Test Item Value Reference Range Comments CALCIUM IONIZED (BEAKER) (test eoka=333) 1.03 mmol/L 1.12-1.27 PH, BLOOD (BEAKER) (test peyd=7036) 7.52 OXYGEN SATURATION, [id number] 17:39:00 Test Item Value Reference Range Comments O2 SATURATION (MEASURED) (BEAKER) (test yqof=5013) 84.5 % CBC W/PLT COUNT & AUTO [id number] 17:37:00 Test Item Value Reference Range Comments WHITE BLOOD CELL COUNT (BEAKER) (test ncvk=661) 9.3 K/ L 3.5-10.5 RED BLOOD CELL COUNT (BEAKER) (test xjwm=656) 2.91 M/ L 4.63-6.08 HEMOGLOBIN (BEAKER) (test vucb=050) 9.2 GM/DL 13.7-17.5 HEMATOCRIT (BEAKER) (test qplc=501) 27.9 % 40.1-51.0 MEAN CORPUSCULAR VOLUME (BEAKER) (test tuym=765) 95.9 fL 79.0-92.2 MEAN CORPUSCULAR HEMOGLOBIN (BEAKER) (test 31.6 pg 25.7-32.2 dwbk=682) MEAN CORPUSCULAR HEMOGLOBIN CONC (BEAKER) (test 33.0 GM/DL 32.3-36.5 wejd=766) RED CELL DISTRIBUTION WIDTH (BEAKER) (test 18.9 % 11.6-14.4 rfvf=764) PLATELET COUNT (BEAKER) (test hwvo=085) 88 K/CU MM 150-450 MEAN PLATELET VOLUME (BEAKER) (test aami=565) 11.5 fL 9.4-12.4 NUCLEATED RED BLOOD CELLS (BEAKER) (test 1 /100 WBC 0-0 ylfd=661) NEUTROPHILS RELATIVE PERCENT (BEAKER) (test 91 % ypsc=719) LYMPHOCYTES RELATIVE PERCENT (BEAKER) (test 3 % xmwf=603) MONOCYTES RELATIVE PERCENT (BEAKER) (test 6 % wsvp=880) EOSINOPHILS RELATIVE PERCENT (BEAKER) (test 0 % cukc=593) BASOPHILS RELATIVE PERCENT (BEAKER) (test 0 % snpo=260) NEUTROPHILS ABSOLUTE COUNT (BEAKER) (test 8.47 K/ L 1.78-5.38 tkkm=714) LYMPHOCYTES ABSOLUTE COUNT (BEAKER) (test 0.23 K/ L 1.32-3.57 eins=466) MONOCYTES ABSOLUTE COUNT (BEAKER) (test iemx=848) 0.53 K/ L 0.30-0.82 EOSINOPHILS ABSOLUTE COUNT (BEAKER) (test 0.00 K/ L 0.04-0.54 imin=018) BASOPHILS ABSOLUTE COUNT (BEAKER) (test kosn=976) 0.01 K/ L 0.01-0.08 IMMATURE GRANULOCYTES-RELATIVE PERCENT (BEAKER) 0 % 0-1 (test kzlq=9781) [id number] 16:35:00 Test Item Value Reference Range Comments ACTIVATED CLOTTING TIME 230 sec TESTED AT [facility] [address] (BEAKER) (test vbxo=763) [facility] [address] [id number] 16:35:00 Test Item Value Reference Range Comments ACTIVATED CLOTTING TIME 191 sec TESTED AT [facility] [address] (BEAKER) (test wuqe=423) [place] [id number] BLOOD GAS, [id number] 16:20:00 Test Item Value Reference Range Comments PH ARTERIAL (BEAKER) (test wvpb=072) 7.37 7.35-7.45 PCO2 ARTERIAL (BEAKER) (test xfzr=531) 29 mm Hg 35-45 PO2 ARTERIAL (BEAKER) (test adhs=283) 590 mm Hg 80-90 O2 SATURATION ARTERIAL (BEAKER) (test ueod=214) 99.9 % 96.0-97.0 HCO3 ARTERIAL (BEAKER) (test hpby=733) 16 mmol/L 21-29 BASE EXCESS ARTERIAL (BEAKER) (test entj=836) -7.3 mmol/L -2.0-3.0 PATIENT TEMPERATURE (BEAKER) (test tasa=5514) 37.0 FIO2 (BEAKER) (test ynml=0786) 100 BLOOD GAS, [id number] 16:19:00 Test Item Value Reference Range Comments PH ARTERIAL (BEAKER) (test eult=760) 7.37 7.35-7.45 PCO2 ARTERIAL (BEAKER) (test coyt=427) 27 mmHg 35-45 PO2 ARTERIAL (BEAKER) (test lscg=907) 426 mmHg 80-90 O2 SATURATION ARTERIAL (BEAKER) (test hikb=980) 99.8 % 96.0-97.0 HCO3 ARTERIAL (BEAKER) (test ecto=884) 15 mmol/L 21-29 BASE EXCESS ARTERIAL (BEAKER) (test fyjc=672) -9.1 mmol/L -2.0-3.0 PATIENT TEMPERATURE (BEAKER) (test nrfp=3703) 37.0 C FIO2 (BEAKER) (test qnvf=3787) 100.0 % Sample drawn from ECMO circuitLACTIC ACID, ARTERIAL, WHOLE [id number] 14:07 :00 Test Item Value Reference Range Comments LACTATE BLOOD ARTERIAL (2) 13.1 mmol/L 0.5-2.2 Specimen slightly hemolyzed (BEAKER) (test veml=8508) Effective 01/04/2016: Units/Reference Range ChangeNew: 0.5-2.2 mmol/L Previous: 5 -20 mg/dLPROTHROMBIN [id number] 14:01:00 Test Item Value Reference Range Comments PROTIME (BEAKER) (test zksg=856) 20.9 seconds 11.7-14.7 INR (BEAKER) (test uflk=070) 1.8 <=5.9 RECOMMENDED COUMADIN/WARFARIN INR THERAPY RANGESSTANDARD DOSE: 2.0 - 3.0 Includes: PROPHYLAXIS forvenous thrombosis, systemic embolization; TREATMENT for venous thrombosis and/or pulmonary embolus.HIGH RISK: Target INR is 2.5-3.5 for patients with mechanical heart valves.[id number] 14:01:00 Test Item Value Reference Range Comments FIBRINOGEN LEVEL (BEAKER) (test kevg=936) 227 mg/dl 225-434 PLATELET [id number] 13:54:00 Test Item Value Reference Range Comments PLATELET COUNT (BEAKER) (test vdsq=493) 115 K/CU MM 150-450 BLOOD GAS, [id number] 13:47:00 Test Item Value Reference Range Comments PH ARTERIAL (BEAKER) (test bodn=172) 7.26 7.35-7.45 PCO2 ARTERIAL (BEAKER) (test wtwp=042) 39 mmHg 35-45 PO2 ARTERIAL (BEAKER) (test ynnr=837) 180 mmHg 80-90 O2 SATURATION ARTERIAL (BEAKER) (test zuuo=316) 99.0 % 96.0-97.0 HCO3 ARTERIAL (BEAKER) (test aany=390) 17 mmol/L 21-29 BASE EXCESS ARTERIAL (BEAKER) (test sugk=425) -9.0 mmol/L -2.0-3.0 PATIENT TEMPERATURE (BEAKER) (test wfef=3874) 37.1 C FIO2 (BEAKER) (test vjlz=5945) 40.0 % GLUCOSE-STAT [id number] 13:47:00 Test Item Value Reference Range Comments GLUCOSE RANDOM (BEAKER) (test lnor=791) 134 mg/dL 70-110 [id number] 12:33:00 Test Item Value Reference Range Comments POTASSIUM (BEAKER) (test aqwa=091) 5.6 meq/L 3.5-5.1 PRN - repeat glucose levels every 1 hour or as specified by insulin titration orders until glucose level is less than 450 mg/[id number] 12:33:00 Test Item Value Reference Range Comments GLUCOSE RANDOM (BEAKER) (test gixg=332) 43 mg/dL 70-105 PRN - repeat glucose levels every 1 hour or as specified by insulin titration orders until glucose level is less than 450 mg/dLBASIC METABOLIC [id number] 11:05:00 Test Item Value Reference Range Comments SODIUM (BEAKER) (test 144 meq/L 136-145 yxgz=641) POTASSIUM (BEAKER) (test 5.9 meq/L 3.5-5.1 yhif=317) CHLORIDE (BEAKER) (test 107 meq/L 98-107 lsqo=101) CO2 (BEAKER) (test 19 meq/L 22-29 bcim=673) BLOOD UREA NITROGEN 26 mg/dL 7-21 (BEAKER) (test nwum=862) CREATININE (BEAKER) (test 3.68 mg/dL 0.57-1.25 mjop=717) GLUCOSE RANDOM (BEAKER) 34 mg/dL 70-105 (test zfbo=761) CALCIUM (BEAKER) (test 9.5 mg/dL 8.4-10.2 cbkg=994) EGFR (BEAKER) (test 21 mL/min/1.73 sq m ESTIMATED GFR IS NOT tnhy=8403) ACCURATE CREATININE CLEARANCE IN PREDICTING GLOMERULAR FILTRATION RATE. ESTIMATED GFR IS NOT APPLICABLE FOR DIALYSIS PATIENTS. PRN - repeat glucose levels every 1 hour or as specified by insulin titration orders until glucose level is less than 450 mg/dLPRN - repeat potassium levels every 1 hour until glucose level is less than 450 mg/[id number] 11:05: 00 Test Item Value Reference Range Comments GLUCOSE RANDOM (BEAKER) (test evgc=953) 34 mg/dL 70-105 [id number] 10:44:00 Test Item Value Reference Range Comments POTASSIUM (BEAKER) (test jdqr=862) 5.9 meq/L 3.5-5.1 HEPATIC FUNCTION [id number] 10:44:00 Test Item Value Reference Range Comments TOTAL PROTEIN (BEAKER) (test xzep=521) 5.5 gm/dL 6.0-8.3 ALBUMIN (BEAKER) (test smww=5095) 2.8 g/dL 3.5-5.0 BILIRUBIN TOTAL (BEAKER) (test bngj=271) 2.3 mg/dL 0.2-1.2 BILIRUBIN DIRECT (BEAKER) (test rxig=093) 1.6 mg/dL 0.1-0.5 ALKALINE PHOSPHATASE (BEAKER) (test lthy=117) 50 U/L 40-150 AST (SGOT) (BEAKER) (test doeo=879) 856 U/L 5-34 ALT (SGPT) (BEAKER) (test hxen=646) 420 U/L 6-55 PRN - repeat glucose levels every 1 hour or as specified by insulin titration orders until glucose level is less than 450 mg/dLPRN - repeat potassium levels every 1 hour until glucose level is less than 450 mg/dLPROTHROMBIN [id number] 10:43:00 Test Item Value Reference Range Comments PROTIME (BEAKER) (test evby=975) 19.5 seconds 11.7-14.7 INR (BEAKER) (test ytee=313) 1.7 <=5.9 RECOMMENDED COUMADIN/WARFARIN INR THERAPY RANGESSTANDARD DOSE: 2.0 - 3.0 Includes: PROPHYLAXIS forvenous thrombosis, systemic embolization; TREATMENT for venous thrombosis and/or pulmonary embolus.HIGH RISK: Target INR is 2.5-3.5 for patients with mechanical heart valves.LACTIC ACID, ARTERIAL, WHOLE [id number] 10:38:00 Test Item Value Reference Range Comments LACTATE BLOOD ARTERIAL (2) 13.1 mmol/L 0.5-2.2 Specimen slightly hemolyzed (BEAKER) (test ronh=0243) Effective 01/04/2016: Units/Reference Range ChangeNew: 0.5-2.2 mmol/L Previous: 5 -20 mg/dLCBC W/PLT COUNT & AUTO [id number] 10:23:00 Test Item Value Reference Range Comments WHITE BLOOD CELL COUNT (BEAKER) (test ajft=642) 10.3 K/ L 3.5-10.5 RED BLOOD CELL COUNT (BEAKER) (test uwas=743) 3.75 M/ L 4.63-6.08 HEMOGLOBIN (BEAKER) (test tqtf=526) 11.8 GM/DL 13.7-17.5 HEMATOCRIT (BEAKER) (test ionc=732) 36.6 % 40.1-51.0 MEAN CORPUSCULAR VOLUME (BEAKER) (test ibdh=693) 97.6 fL 79.0-92.2 MEAN CORPUSCULAR HEMOGLOBIN (BEAKER) (test 31.5 pg 25.7-32.2 jumv=347) MEAN CORPUSCULAR HEMOGLOBIN CONC (BEAKER) (test 32.2 GM/DL 32.3-36.5 xcdc=382) RED CELL DISTRIBUTION WIDTH (BEAKER) (test 19.2 % 11.6-14.4 vzjl=476) PLATELET COUNT (BEAKER) (test dtol=384) 125 K/CU MM 150-450 MEAN PLATELET VOLUME (BEAKER) (test hvau=721) 10.7 fL 9.4-12.4 NUCLEATED RED BLOOD CELLS (BEAKER) (test 1 /100 WBC 0-0 fjwx=228) NEUTROPHILS RELATIVE PERCENT (BEAKER) (test 86 % lwdb=784) LYMPHOCYTES RELATIVE PERCENT (BEAKER) (test 4 % dlwc=819) MONOCYTES RELATIVE PERCENT (BEAKER) (test 9 % bahi=508) EOSINOPHILS RELATIVE PERCENT (BEAKER) (test 0 % ejbr=017) BASOPHILS RELATIVE PERCENT (BEAKER) (test 0 % kblw=989) NEUTROPHILS ABSOLUTE COUNT (BEAKER) (test 8.88 K/ L 1.78-5.38 mgmk=552) LYMPHOCYTES ABSOLUTE COUNT (BEAKER) (test 0.41 K/ L 1.32-3.57 emiy=936) MONOCYTES ABSOLUTE COUNT (BEAKER) (test 0.91 K/ L 0.30-0.82 rgdi=352) EOSINOPHILS ABSOLUTE COUNT (BEAKER) (test 0.00 K/ L 0.04-0.54 urvj=496) BASOPHILS ABSOLUTE COUNT (BEAKER) (test 0.02 K/ L 0.01-0.08 yuyp=629) IMMATURE GRANULOCYTES-RELATIVE PERCENT (BEAKER) 1 % 0-1 (test zrnv=7538) BLOOD GAS, [id number] 10:20:00 Test Item Value Reference Range Comments PH ARTERIAL (BEAKER) (test nfij=313) 7.29 7.35-7.45 PCO2 ARTERIAL (BEAKER) (test rvrp=666) 40 mmHg 35-45 PO2 ARTERIAL (BEAKER) (test taui=632) 185 mmHg 80-90 O2 SATURATION ARTERIAL (BEAKER) (test gapq=634) 99.1 % 96.0-97.0 HCO3 ARTERIAL (BEAKER) (test nxyq=975) 18 mmol/L 21-29 BASE EXCESS ARTERIAL (BEAKER) (test hztc=190) -7.7 mmol/L -2.0-3.0 PATIENT TEMPERATURE (BEAKER) (test tpjq=1258) 37.3 C FIO2 (BEAKER) (test spxc=3962) 40.0 % [id number] 09:01:00 Test Item Value Reference Range Comments POTASSIUM (BEAKER) (test kjhd=843) 5.9 meq/L 3.5-5.1 PRN - repeat glucose levels every 1 hour or as specified by insulin titration orders until glucose level is less than 450 mg/[id number] 09:01:00 Test Item Value Reference Range Comments MAGNESIUM (BEAKER) (test bgua=033) 1.7 mg/dL 1.6-2.6 PRN - repeat glucose levels every 1 hour or as specified by insulin titration orders until glucose level is less than 450 mg/[id number] 09:01:00 Test Item Value Reference Range Comments PHOSPHORUS (BEAKER) (test tomy=390) 4.7 mg/dL 2.3-4.7 PRN - repeat glucose levels every 1 hour or as specified by insulin titration orders until glucose level is less than 450 mg/[id number] 09:01:00 Test Item Value Reference Range Comments GLUCOSE RANDOM (BEAKER) (test ydzk=542) 50 mg/dL 70-105 PRN - repeat glucose levels every 1 hour or as specified by insulin titration orders until glucose level is less than 450 mg/dLCALCIUM, [id number] 08: 47:00 Test Item Value Reference Range Comments CALCIUM IONIZED (BEAKER) (test vzoe=581) 1.24 mmol/L 1.12-1.27 PH, BLOOD (BEAKER) (test ipdp=7453) 7.31 [id number] 08:45:00 Test Item Value Reference Range Comments PARTIAL THROMBOPLASTIN TIME (BEAKER) (test 53.7 seconds 22.5-36.0 ywev=426) BLOOD GAS, [id number] 08:41:00 Test Item Value Reference Range Comments PH ARTERIAL (BEAKER) (test lnhi=059) 7.31 7.35-7.45 PCO2 ARTERIAL (BEAKER) (test rbvv=376) 37 mmHg 35-45 PO2 ARTERIAL (BEAKER) (test xeoc=840) 192 mmHg 80-90 O2 SATURATION ARTERIAL (BEAKER) (test cnht=756) 99.2 % 96.0-97.0 HCO3 ARTERIAL (BEAKER) (test dfsl=537) 18 mmol/L 21-29 BASE EXCESS ARTERIAL (BEAKER) (test zznz=287) -7.6 mmol/L -2.0-3.0 PATIENT TEMPERATURE (BEAKER) (test fmzw=7671) 37.5 C FIO2 (BEAKER) (test gdxn=1847) 40.0 % PH, [id number] 08:41:00 Test Item Value Reference Range Comments PH ARTERIAL (BEAKER) (test qhzp=721) 7.31 7.35-7.45 RAD, CHEST, 1 VIEW, NON [id number] 07:31:00Reason for exam:->s/p cardiac surgeryShould this be [...] Xie MDReport VerifiedDate/Time: 01/11/2018 07:31:38 Reading Location: [facility] [id number] Ortho Consult Reading Room BLOOD GAS, [id number] 06:54:00 Test Item Value Reference Range Comments PH ARTERIAL (BEAKER) (test tzwi=858) 7.28 7.35-7.45 PCO2 ARTERIAL (BEAKER) (test axlq=578) 40 mmHg 35-45 PO2 ARTERIAL (BEAKER) (test mcnq=594) 206 mmHg 80-90 O2 SATURATION ARTERIAL (BEAKER) (test slsy=189) 99.3 % 96.0-97.0 HCO3 ARTERIAL (BEAKER) (test xvpi=708) 18 mmol/L 21-29 BASE EXCESS ARTERIAL (BEAKER) (test dsto=879) -7.9 mmol/L -2.0-3.0 PATIENT TEMPERATURE (BEAKER) (test tpxb=0350) 37.3 C FIO2 (BEAKER) (test vhtb=4782) 40.0 % BASIC METABOLIC [id number] 06:12:00 Test Item Value Reference Range Comments SODIUM (BEAKER) (test 141 meq/L 136-145 ekkq=307) POTASSIUM (BEAKER) (test 4.7 meq/L 3.5-5.1 pnpu=078) CHLORIDE (BEAKER) (test 109 meq/L 98-107 swdr=759) CO2 (BEAKER) (test 17 meq/L 22-29 ddsg=277) BLOOD UREA NITROGEN 31 mg/dL 7-21 (BEAKER) (test tliz=027) CREATININE (BEAKER) (test 4.41 mg/dL 0.57-1.25 iwzy=987) GLUCOSE RANDOM (BEAKER) 86 mg/dL 70-105 (test oflr=254) CALCIUM (BEAKER) (test 10.6 mg/dL 8.4-10.2 iqlo=578) EGFR (BEAKER) (test 17 mL/min/1.73 sq m ESTIMATED GFR IS NOT guky=3040) ACCURATE CREATININE CLEARANCE IN PREDICTING GLOMERULAR FILTRATION RATE. ESTIMATED GFR IS NOT APPLICABLE FOR DIALYSIS PATIENTS. POCT-GLUCOSE [id number] 05:58:00 Test Item Value Reference Range Comments POC-GLUCOSE METER (BEAKER) 121 mg/dL 70-110 TESTED AT [facility] [address] (test wvgf=7532) [facility] [address] POCT-GLUCOSE [id number] 05:58:00 Test Item Value Reference Range Comments POC-GLUCOSE METER (BEAKER) 66 mg/dL 70-110 Will Repeat Test/TESTED AT (test qcgk=1201) [address] [address] [id number] 05:51:00 Test Item Value Reference Range Comments PHOSPHORUS (BEAKER) (test ummb=825) 3.5 mg/dL 2.3-4.7 [id number] 05:51:00 Test Item Value Reference Range Comments MAGNESIUM (BEAKER) (test ztlj=053) 1.9 mg/dL 1.6-2.6 BLOOD GAS, [id number] 05:47:00 Test Item Value Reference Range Comments PH ARTERIAL (BEAKER) (test punp=104) 7.32 7.35-7.45 PCO2 ARTERIAL (BEAKER) (test skwl=855) 40 mmHg 35-45 PO2 ARTERIAL (BEAKER) (test mswz=162) 190 mmHg 80-90 O2 SATURATION ARTERIAL (BEAKER) (test gmxt=822) 99.2 % 96.0-97.0 HCO3 ARTERIAL (BEAKER) (test zwan=426) 20 mmol/L 21-29 BASE EXCESS ARTERIAL (BEAKER) (test tpxn=444) -5.6 mmol/L -2.0-3.0 PATIENT TEMPERATURE (BEAKER) (test ukfo=2505) 36.6 C FIO2 (BEAKER) (test xjll=4954) 40.0 % POCT-GLUCOSE [id number] 05:27:00 Test Item Value Reference Range Comments POC-GLUCOSE METER (BEAKER) 112 mg/dL 70-110 TESTED AT [address] (test zags=2652) [place] [id number] POCT-GLUCOSE [id number] 05:27:00 Test Item Value Reference Range Comments POC-GLUCOSE METER (BEAKER) 106 mg/dL 70-110 TESTED AT [address] (test wsxw=8606) [facility] [address] POCT-GLUCOSE [id number] 05:26:00 Test Item Value Reference Range Comments POC-GLUCOSE METER (BEAKER) 66 mg/dL 70-110 TESTED AT [address] (test wkgn=3265) [facility] [address] LACTIC ACID, ARTERIAL, WHOLE [id number] 04:59:00 Test Item Value Reference Range Comments LACTATE BLOOD ARTERIAL (2) 12.2 mmol/L 0.5-2.2 Specimen slightly hemolyzed (BEAKER) (test xgpi=4710) Effective 01/04/2016: Units/Reference Range ChangeNew: 0.5-2.2 mmol/L Previous: 5 -20 mg/dLCALCIUM, [id number] 04:57:00 Test Item Value Reference Range Comments CALCIUM IONIZED (BEAKER) (test timy=294) 1.33 mmol/L 1.12-1.27 PH, BLOOD (BEAKER) (test mnee=1211) 7.30 BLOOD GAS, [id number] 04:57:00 Test Item Value Reference Range Comments PH ARTERIAL (BEAKER) (test fahm=708) 7.32 7.35-7.45 PCO2 ARTERIAL (BEAKER) (test upsl=548) 40 mmHg 35-45 PO2 ARTERIAL (BEAKER) (test pyks=467) 193 mmHg 80-90 O2 SATURATION ARTERIAL (BEAKER) (test qpti=826) 99.2 % 96.0-97.0 HCO3 ARTERIAL (BEAKER) (test cnio=917) 20 mmol/L 21-29 BASE EXCESS ARTERIAL (BEAKER) (test ytge=975) -6.0 mmol/L -2.0-3.0 PATIENT TEMPERATURE (BEAKER) (test ztua=3152) 35.5 C FIO2 (BEAKER) (test roxh=4984) 45.0 % OXYGEN SATURATION, [id number] 04:56:00 Test Item Value Reference Range Comments O2 SATURATION (MEASURED) (BEAKER) (test gmwn=5155) 83.2 % CBC W/PLT COUNT & AUTO [id number] 04:56:00 Test Item Value Reference Range Comments WHITE BLOOD CELL COUNT (BEAKER) (test pxpt=640) 12.5 K/ L 3.5-10.5 RED BLOOD CELL COUNT (BEAKER) (test ubfm=414) 3.79 M/ L 4.63-6.08 HEMOGLOBIN (BEAKER) (test uppr=691) 12.0 GM/DL 13.7-17.5 HEMATOCRIT (BEAKER) (test hkfj=500) 36.8 % 40.1-51.0 MEAN CORPUSCULAR VOLUME (BEAKER) (test kucm=146) 97.1 fL 79.0-92.2 MEAN CORPUSCULAR HEMOGLOBIN (BEAKER) (test 31.7 pg 25.7-32.2 msic=340) MEAN CORPUSCULAR HEMOGLOBIN CONC (BEAKER) (test 32.6 GM/DL 32.3-36.5 lrar=033) RED CELL DISTRIBUTION WIDTH (BEAKER) (test 18.2 % 11.6-14.4 umiy=279) PLATELET COUNT (BEAKER) (test juwo=458) 134 K/CU MM 150-450 MEAN PLATELET VOLUME (BEAKER) (test dmoi=366) 10.9 fL 9.4-12.4 NUCLEATED RED BLOOD CELLS (BEAKER) (test 0 /100 WBC 0-0 ixuq=299) NEUTROPHILS RELATIVE PERCENT (BEAKER) (test 89 % zqsw=480) LYMPHOCYTES RELATIVE PERCENT (BEAKER) (test 2 % ptzg=179) MONOCYTES RELATIVE PERCENT (BEAKER) (test 8 % iwwi=369) EOSINOPHILS RELATIVE PERCENT (BEAKER) (test 0 % qtkz=626) BASOPHILS RELATIVE PERCENT (BEAKER) (test 0 % plnq=695) NEUTROPHILS ABSOLUTE COUNT (BEAKER) (test 11.15 K/ L 1.78-5.38 ouad=070) LYMPHOCYTES ABSOLUTE COUNT (BEAKER) (test 0.30 K/ L 1.32-3.57 krmf=766) MONOCYTES ABSOLUTE COUNT (BEAKER) (test 0.97 K/ L 0.30-0.82 zgfv=164) EOSINOPHILS ABSOLUTE COUNT (BEAKER) (test 0.01 K/ L 0.04-0.54 vwsm=604) BASOPHILS ABSOLUTE COUNT (BEAKER) (test 0.02 K/ L 0.01-0.08 bnpg=619) IMMATURE GRANULOCYTES-RELATIVE PERCENT (BEAKER) 1 % 0-1 (test qkhq=7866) CALCIUM, [id number] 03:38:00 Test Item Value Reference Range Comments CALCIUM IONIZED (BEAKER) (test xicy=385) 1.32 mmol/L 1.12-1.27 PH, BLOOD (BEAKER) (test jsex=8714) 7.29 BLOOD GAS, [id number] 03:36:00 Test Item Value Reference Range Comments PH ARTERIAL (BEAKER) (test xrxo=097) 7.31 7.35-7.45 PCO2 ARTERIAL (BEAKER) (test knfi=725) 36 mmHg 35-45 PO2 ARTERIAL (BEAKER) (test yqve=059) 207 mmHg 80-90 O2 SATURATION ARTERIAL (BEAKER) (test ilnh=779) 99.3 % 96.0-97.0 HCO3 ARTERIAL (BEAKER) (test zuxg=635) 19 mmol/L 21-29 BASE EXCESS ARTERIAL (BEAKER) (test igoq=858) -7.6 mmol/L -2.0-3.0 PATIENT TEMPERATURE (BEAKER) (test owlk=9231) 34.9 C FIO2 (BEAKER) (test tykh=2365) 50.0 % HGB/HCT (H&H) - STAT [id number] 03:36:00 Test Item Value Reference Range Comments HEMOGLOBIN (BEAKER) (test erdu=237) 12.5 g/dL 13.0-16.8 HEMATOCRIT (BEAKER) (test hmkr=515) 37.0 % 40.0-50.0 OXYGEN SATURATION, [id number] 03:35:00 Test Item Value Reference Range Comments O2 SATURATION (MEASURED) (BEAKER) (test siii=0560) 80.3 % GLUCOSE-STAT [id number] 03:34:00 Test Item Value Reference Range Comments GLUCOSE RANDOM (BEAKER) (test igic=840) 91 mg/dL 70-110 SODIUM NA-STAT [id number] 03:34:00 Test Item Value Reference Range Comments SODIUM (BEAKER) (test lyvw=562) 137 meq/L 135-148 POTASSIUM-STAT [id number] 03:34:00 Test Item Value Reference Range Comments POTASSIUM (BEAKER) (test kycq=953) 4.6 meq/L 3.6-5.5 BLOOD GAS, [id number] 03:01:00 Test Item Value Reference Range Comments PH ARTERIAL (BEAKER) (test ceto=990) 7.34 7.35-7.45 PCO2 ARTERIAL (BEAKER) (test rhli=880) 37 mmHg 35-45 PO2 ARTERIAL (BEAKER) (test vbwb=905) 100 mmHg 80-90 O2 SATURATION ARTERIAL (BEAKER) (test gfjr=816) 97.8 % 96.0-97.0 HCO3 ARTERIAL (BEAKER) (test moio=366) 20 mmol/L 21-29 BASE EXCESS ARTERIAL (BEAKER) (test nomc=757) -5.7 mmol/L -2.0-3.0 PATIENT TEMPERATURE (BEAKER) (test etdb=8763) 34.6 C FIO2 (BEAKER) (test pllt=4829) 50.0 % HGB/HCT (H&H) - STAT [id number] 03:01:00 Test Item Value Reference Range Comments HEMOGLOBIN (BEAKER) (test wyke=488) 12.0 g/dL 13.0-16.8 HEMATOCRIT (BEAKER) (test btzr=931) 35.0 % 40.0-50.0 POTASSIUM-STAT [id number] 03:00:00 Test Item Value Reference Range Comments POTASSIUM (BEAKER) (test jjfk=295) 5.0 meq/L 3.6-5.5 GLUCOSE-STAT [id number] 03:00:00 Test Item Value Reference Range Comments GLUCOSE RANDOM (BEAKER) (test piua=318) 102 mg/dL 70-110 SODIUM NA-STAT [id number] 03:00:00 Test Item Value Reference Range Comments SODIUM (BEAKER) (test oeji=854) 140 meq/L 135-148 LACTIC ACID, ARTERIAL, WHOLE [id number] 01:53:00 Test Item Value Reference Range Comments LACTATE BLOOD ARTERIAL (2) 9.4 mmol/L 0.5-2.2 Specimen slightly hemolyzed (BEAKER) (test wytj=6032) Effective 01/04/2016: Units/Reference Range ChangeNew: 0.5-2.2 mmol/L Previous: 5 -20 mg/dLGLUCOSE-STAT [id number] 01:27:00 Test Item Value Reference Range Comments GLUCOSE RANDOM (BEAKER) (test womq=122) 99 mg/dL 70-110 BLOOD GAS, [id number] 01:27:00 Test Item Value Reference Range Comments PH ARTERIAL (BEAKER) (test kgsq=845) 7.33 7.35-7.45 PCO2 ARTERIAL (BEAKER) (test ltma=572) 37 mmHg 35-45 PO2 ARTERIAL (BEAKER) (test oemi=876) 325 mmHg 80-90 O2 SATURATION ARTERIAL (BEAKER) (test kbmc=219) 99.7 % 96.0-97.0 HCO3 ARTERIAL (BEAKER) (test rpnd=803) 20 mmol/L 21-29 BASE EXCESS ARTERIAL (BEAKER) (test lpxs=919) -6.6 mmol/L -2.0-3.0 PATIENT TEMPERATURE (BEAKER) (test wzva=1464) 33.9 C FIO2 (BEAKER) (test jsbt=7780) 100.0 % HGB/HCT (H&H) - STAT [id number] 01:27:00 Test Item Value Reference Range Comments HEMOGLOBIN (BEAKER) (test lulx=130) 12.7 g/dL 13.0-16.8 HEMATOCRIT (BEAKER) (test ztxg=125) 37.0 % 40.0-50.0 SODIUM NA-STAT [id number] 01:26:00 Test Item Value Reference Range Comments SODIUM (BEAKER) (test fjxc=816) 141 meq/L 135-148 POTASSIUM-STAT [id number] 01:26:00 Test Item Value Reference Range Comments POTASSIUM (BEAKER) (test zvpw=779) 3.6 meq/L 3.6-5.5 [id number] 00:38:00 Test Item Value Reference Range Comments PARTIAL THROMBOPLASTIN TIME (BEAKER) (test 47.4 seconds 22.5-36.0 lyvh=203) [id number] 00:35:00 Test Item Value Reference Range Comments POTASSIUM (BEAKER) (test 3.5 meq/L 3.5-5.1 Specimen slightly hemolyzed pmgh=887) CALCIUM, [id number] 00:25:00 Test Item Value Reference Range Comments CALCIUM IONIZED (BEAKER) (test ohvc=300) 1.43 mmol/L 1.12-1.27 PH, BLOOD (BEAKER) (test tlsk=4153) 7.33 THROMBOELASTOGRAPH (TEG)[id number] 23:05:00 Test Item Value Reference Range Comments TEG ACTIVATED CLOTTING TIME (BEAKER) (test 7.2 minutes 4.0-7.0 spoy=2119) TEG FIBRINOGEN ACTIVITY (BEAKER) (test 67.4 degrees 61.0-73.0 cego=5826) TEG PLT. AGGREGATION (BEAKER) (test eaqv=4903) 49.8 MM 55.0-65.0 TEG FIBRINOLYSIS (BEAKER) (test kdmv=7778) 15.1 % 0.0-5.0 TGH ACTIVATED CLOTTING TIME (BEAKER) (test 6.9 minutes 4.0-7.0 rwgf=3765) TGH FIBRINOGEN ACTIVITY (BEAKER) (test 69.4 degrees 61.0-73.0 jpam=7058) TGH PLT. AGGREGATION (BEAKER) (test juuc=5427) 55.8 MM 55.0-65.0 TGH FIBRINOLYSIS (BEAKER) (test cowf=8430) 0.0 % 0.0-5.0 RAD, CHEST, 1 VIEW, NON [id number] 22:36:00Reason for exam:->s/p BronchoscopyFINAL REPORT CLINICAL INDICATION: Post bronchoscopy Comparison: Same date [id number] hours There is improved aeration of the right upper lobe. No pneumothorax is present. Hazy opacity in the right upper lobe and in the retrocardiac lower lungs may reflect atelectasis but pneumonitis should be excluded clinically. The cardiomediastinal contours are stable. Support lines are stable. Signed: Kellen Parra MDReport Verified Date/ Time: 01/10/2018 22:36:29 Reading Location: [address] Reading Room [facility] METABOLIC [id number] 22:01:00 Test Item Value Reference Range Comments SODIUM (BEAKER) (test 144 meq/L 136-145 esig=108) POTASSIUM (BEAKER) (test 3.9 meq/L 3.5-5.1 Specimen slightly wlcj=185) hemolyzed CHLORIDE (BEAKER) (test 109 meq/L 98-107 fsbk=256) CO2 (BEAKER) (test 20 meq/L 22-29 kmqm=433) BLOOD UREA NITROGEN 39 mg/dL 7-21 (BEAKER) (test dvju=773) CREATININE (BEAKER) (test 6.14 mg/dL 0.57-1.25 Specimen slightly gedn=199) hemolyzed GLUCOSE RANDOM (BEAKER) 105 mg/dL 70-105 (test zcof=952) CALCIUM (BEAKER) (test 12.8 mg/dL 8.4-10.2 hnga=538) EGFR (BEAKER) (test 11 mL/min/1.73 sq m ESTIMATED GFR IS NOT cymh=1485) ACCURATE CREATININE CLEARANCE IN PREDICTING GLOMERULAR FILTRATION RATE. ESTIMATED GFR IS NOT APPLICABLE FOR DIALYSIS PATIENTS. [id number] 22:00:00 Test Item Value Reference Range Comments MAGNESIUM (BEAKER) (test 2.4 mg/dL 1.6-2.6 Specimen slightly hemolyzed hchd=145) [id number] 22:00:00 Test Item Value Reference Range Comments PHOSPHORUS (BEAKER) (test 3.2 mg/dL 2.3-4.7 Specimen slightly hemolyzed ouju=410) LACTIC ACID, ARTERIAL, WHOLE [id number] 21:57:00 Test Item Value Reference Range Comments LACTATE BLOOD ARTERIAL (2) 10.2 mmol/L 0.5-2.2 Specimen slightly hemolyzed (BEAKER) (test viwh=0659) Effective 01/04/2016: Units/Reference Range ChangeNew: 0.5-2.2 mmol/L Previous: 5 -20 mg/dLCBC W/PLT COUNT & AUTO [id number] 21:51:00 Test Item Value Reference Range Comments WHITE BLOOD CELL COUNT (BEAKER) (test zuqw=818) 12.9 K/ L 3.5-10.5 RED BLOOD CELL COUNT (BEAKER) (test trvh=842) 2.52 M/ L 4.63-6.08 HEMOGLOBIN (BEAKER) (test bhda=753) 8.0 GM/DL 13.7-17.5 HEMATOCRIT (BEAKER) (test brnr=710) 24.9 % 40.1-51.0 MEAN CORPUSCULAR VOLUME (BEAKER) (test tdpc=842) 98.8 fL 79.0-92.2 MEAN CORPUSCULAR HEMOGLOBIN (BEAKER) (test 31.7 pg 25.7-32.2 mkvz=204) MEAN CORPUSCULAR HEMOGLOBIN CONC (BEAKER) (test 32.1 GM/DL 32.3-36.5 igof=199) RED CELL DISTRIBUTION WIDTH (BEAKER) (test 17.2 % 11.6-14.4 hsru=042) PLATELET COUNT (BEAKER) (test nepm=531) 150 K/CU MM 150-450 MEAN PLATELET VOLUME (BEAKER) (test ovkd=095) 9.8 fL 9.4-12.4 NUCLEATED RED BLOOD CELLS (BEAKER) (test 1 /100 WBC 0-0 tsxv=704) NEUTROPHILS RELATIVE PERCENT (BEAKER) (test 85 % oqqr=487) LYMPHOCYTES RELATIVE PERCENT (BEAKER) (test 9 % xtkx=104) MONOCYTES RELATIVE PERCENT (BEAKER) (test 6 % gure=541) EOSINOPHILS RELATIVE PERCENT (BEAKER) (test 0 % mifs=880) BASOPHILS RELATIVE PERCENT (BEAKER) (test 0 % bygx=991) NEUTROPHILS ABSOLUTE COUNT (BEAKER) (test 10.97 K/ L 1.78-5.38 bseq=210) LYMPHOCYTES ABSOLUTE COUNT (BEAKER) (test 1.10 K/ L 1.32-3.57 azpz=151) MONOCYTES ABSOLUTE COUNT (BEAKER) (test 0.72 K/ L 0.30-0.82 ehup=379) EOSINOPHILS ABSOLUTE COUNT (BEAKER) (test 0.04 K/ L 0.04-0.54 ddlh=927) BASOPHILS ABSOLUTE COUNT (BEAKER) (test 0.01 K/ L 0.01-0.08 sooz=479) IMMATURE GRANULOCYTES-RELATIVE PERCENT (BEAKER) 1 % 0-1 (test pvyy=6894) [id number] 21:49:00 Test Item Value Reference Range Comments PARTIAL THROMBOPLASTIN TIME (BEAKER) (test 41.2 seconds 22.5-36.0 tgdp=502) PROTHROMBIN [id number] 21:48:00 Test Item Value Reference Range Comments PROTIME (BEAKER) (test irxy=430) 19.8 seconds 11.7-14.7 INR (BEAKER) (test trcu=604) 1.7 <=5.9 RECOMMENDED COUMADIN/WARFARIN INR THERAPY RANGESSTANDARD DOSE: 2.0 - 3.0 Includes: PROPHYLAXIS forvenous thrombosis, systemic embolization; TREATMENT for venous thrombosis and/or pulmonary embolus.HIGH RISK: Target INR is 2.5-3.5 for patients with mechanical heart valves.[id number] 21:48:00 Test Item Value Reference Range Comments FIBRINOGEN LEVEL (BEAKER) (test zqno=171) 221 mg/dl 225-434 CALCIUM, [id number] 21:33:00 Test Item Value Reference Range Comments CALCIUM IONIZED (BEAKER) (test ggjw=125) 1.54 mmol/L 1.12-1.27 PH, BLOOD (BEAKER) (test ybto=1324) 7.33 OXYGEN SATURATION, [id number] 21:33:00 Test Item Value Reference Range Comments O2 SATURATION (MEASURED) (BEAKER) (test xtdx=4676) 67.1 % GLUCOSE-STAT [id number] 21:32:00 Test Item Value Reference Range Comments GLUCOSE RANDOM (BEAKER) (test dwlh=963) 98 mg/dL 70-110 SODIUM NA-STAT [id number] 21:32:00 Test Item Value Reference Range Comments SODIUM (BEAKER) (test juup=115) 139 meq/L 135-148 POTASSIUM-STAT [id number] 21:32:00 Test Item Value Reference Range Comments POTASSIUM (BEAKER) (test xkbr=772) 3.6 meq/L 3.6-5.5 BLOOD GAS, [id number] 21:32:00 Test Item Value Reference Range Comments PH ARTERIAL (BEAKER) (test nccw=248) 7.33 7.35-7.45 PCO2 ARTERIAL (BEAKER) (test vvjr=665) 44 mmHg 35-45 PO2 ARTERIAL (BEAKER) (test sbdf=662) 98 mmHg 80-90 O2 SATURATION ARTERIAL (BEAKER) (test hjzc=701) 97.1 % 96.0-97.0 HCO3 ARTERIAL (BEAKER) (test kkbn=305) 23 mmol/L 21-29 BASE EXCESS ARTERIAL (BEAKER) (test aqah=352) -3.1 mmol/L -2.0-3.0 PATIENT TEMPERATURE (BEAKER) (test ldwp=8927) 36.6 C FIO2 (BEAKER) (test lpuo=7512) 60.0 % HGB/HCT (H&H) - STAT [id number] 21:32:00 Test Item Value Reference Range Comments HEMOGLOBIN (BEAKER) (test gffp=093) 8.2 g/dL 13.0-16.8 HEMATOCRIT (BEAKER) (test pnrb=608) 24.0 % 40.0-50.0 RAD, CHEST, 1 VIEW, NON [id number] 21:32:00Reason for exam:->s/p cardiac surgeryShould this be [...] the level of the clavicles. Right IJ Easton-Moni catheter terminatesin the distal right pulmonary artery. The soft tissues and osseous structures are intact. IMPRESSION: Postoperative changes with right upper lobe collapse, likely secondary to mucous plugging. Supporting lines and tubes as described above. Note position of the Easton-Moni catheter. Signed: Moiz Musaeport Verified Date/Time: 01/10/2018 21:32:31 Reading Location: [facility] [id number] Consult Reading Room THROMBOELASTOGRAPH (TEG) 21:01:00 Test Item Value Reference Range Comments TEG ACTIVATED CLOTTING TIME (BEAKER) (test 19.1 minutes 4.0-7.0 iuqa=4572) TEG FIBRINOGEN ACTIVITY (BEAKER) (test 45.3 degrees 61.0-73.0 zekg=3923) TEG PLT. AGGREGATION (BEAKER) (test jzlr=0267) 42.1 MM 55.0-65.0 TGH ACTIVATED CLOTTING TIME (BEAKER) (test 12.9 minutes 4.0-7.0 iiuw=7821) TGH FIBRINOGEN ACTIVITY (BEAKER) (test 24.6 degrees 61.0-73.0 xrcv=2345) TGH PLT. AGGREGATION (BEAKER) (test anlt=4655) 40.1 MM 55.0-65.0 CALCIUM, [id number] 20:42:00 Test Item Value Reference Range Comments CALCIUM IONIZED (BEAKER) (test cqdd=779) 1.41 mmol/L 1.12-1.27 PH, BLOOD (BEAKER) (test sbxs=5457) 7.41 SODIUM NA-STAT [id number] 20:41:00 Test Item Value Reference Range Comments SODIUM (BEAKER) (test wvbj=606) 138 meq/L 135-148 POTASSIUM-STAT [id number] 20:41:00 Test Item Value Reference Range Comments POTASSIUM (BEAKER) (test ekqb=190) 3.7 meq/L 3.6-5.5 BLOOD GAS, [id number] 20:41:00 Test Item Value Reference Range Comments PH ARTERIAL (BEAKER) (test jhkv=495) 7.41 7.35-7.45 PCO2 ARTERIAL (BEAKER) (test gkjx=547) 32 mmHg 35-45 PO2 ARTERIAL (BEAKER) (test nhmc=843) 153 mmHg 80-90 O2 SATURATION ARTERIAL (BEAKER) (test iqla=978) 99.1 % 96.0-97.0 HCO3 ARTERIAL (BEAKER) (test qusb=270) 21 mmol/L 21-29 BASE EXCESS ARTERIAL (BEAKER) (test vzik=715) -4.2 mmol/L -2.0-3.0 PATIENT TEMPERATURE (BEAKER) (test ddbb=0061) 32.0 C FIO2 (BEAKER) (test xdid=0594) 100.0 % GLUCOSE-STAT [id number] 20:41:00 Test Item Value Reference Range Comments GLUCOSE RANDOM (BEAKER) (test kuim=283) 120 mg/dL 70-110 HGB/HCT (H&H) - STAT [id number] 20:41:00 Test Item Value Reference Range Comments HEMOGLOBIN (BEAKER) (test ayeh=580) 7.8 g/dL 13.0-16.8 HEMATOCRIT (BEAKER) (test rwct=990) 23.0 % 40.0-50.0 [id number] 20:23:00 Test Item Value Reference Range Comments FIBRINOGEN LEVEL (BEAKER) (test bbch=431) 239 mg/dl 225-434 [id number] 20:23:00 Test Item Value Reference Range Comments PARTIAL THROMBOPLASTIN TIME (BEAKER) (test 38.6 seconds 22.5-36.0 ohbt=659) PROTHROMBIN TIME/[id number] 20:22:00 Test Item Value Reference Range Comments PROTIME (BEAKER) (test ktjv=554) 21.6 seconds 11.7-14.7 INR (BEAKER) (test fqgr=944) 1.9 <=5.9 RECOMMENDED COUMADIN/WARFARIN INR THERAPY RANGESSTANDARD DOSE: 2.0 - 3.0 Includes: PROPHYLAXIS forvenous thrombosis, systemic embolization; TREATMENT for venous thrombosis and/or pulmonary embolus.HIGH RISK: Target INR is 2.5-3.5 for patients with mechanical heart valves.[id number] 20:16:00 Test Item Value Reference Range Comments ACTIVATED CLOTTING TIME 114 sec TESTED AT [address] ([facility]) (test yruy=842) [place] [id number] 20:16:00 Test Item Value Reference Range Comments ACTIVATED CLOTTING TIME 499 sec TESTED AT [address] ([facility]) (test onsu=941) [place] [address] [id number] 20:16:00 Test Item Value Reference Range Comments ACTIVATED CLOTTING TIME 483 sec TESTED AT [address] ([facility]) (test vowl=196) [place] [address] [id number] 20:16:00 Test Item Value Reference Range Comments ACTIVATED CLOTTING TIME 538 sec TESTED AT [address] ([facility]) (test eheg=931) [place] [address] [id number] 20:16:00 Test Item Value Reference Range Comments ACTIVATED CLOTTING TIME 615 sec TESTED AT [address] ([facility]) (test wamo=750) [place] [id number] 20:16:00 Test Item Value Reference Range Comments ACTIVATED CLOTTING TIME 692 sec TESTED AT [address] ([facility]) (test muov=855) [place] [id number] 20:16:00 Test Item Value Reference Range Comments ACTIVATED CLOTTING TIME 428 sec TESTED AT [address] ([facility]) (test pexl=216) [place] [address] [id number] 20:16:00 Test Item Value Reference Range Comments ACTIVATED CLOTTING TIME 373 sec TESTED AT [address] ([facility]) (test vazn=441) [place] [id number] 20:16:00 Test Item Value Reference Range Comments ACTIVATED CLOTTING TIME 455 sec TESTED AT [address] ([facility]) (test qjaz=966) [place] [address] [id number] 20:16:00 Test Item Value Reference Range Comments ACTIVATED CLOTTING TIME 494 sec TESTED AT [address] (BEAKER) (test yqyx=750) [place] [address] [id number] 20:16:00 Test Item Value Reference Range Comments ACTIVATED CLOTTING TIME 527 sec TESTED AT [address] (BEAKER) (test zdyf=052) [place] [address] [id number] 20:16:00 Test Item Value Reference Range Comments ACTIVATED CLOTTING TIME 610 sec TESTED AT [address] (BEAKER) (test rrzw=106) [place] [address] [id number] 20:16:00 Test Item Value Reference Range Comments ACTIVATED CLOTTING TIME 576 sec TESTED AT [address] (BEAKER) (test inij=843) [place] [address] [id number] 20:16:00 Test Item Value Reference Range Comments ACTIVATED CLOTTING TIME 384 sec TESTED AT [address] (BEAKER) (test titb=835) [place] [address] PLATELET [id number] 20:08:00 Test Item Value Reference Range Comments PLATELET COUNT (BEAKER) (test dotg=636) 47 K/CU MM 150-450 THROMBOELASTOGRAPH (TEG)2018-01-10 20:00:00 Test Item Value Reference Range Comments TEG ACTIVATED CLOTTING TIME (BEAKER) minutes 4.0-7.0 No clot detected (test wbwy=1639) [facility] ACTIVATED CLOTTING TIME (BEAKER) 9.2 minutes 4.0-7.0 (test plxu=4945) [facility] FIBRINOGEN ACTIVITY (BEAKER) (test 51.1 degrees 61.0-73.0 wkju=5239) [facility] PLT. AGGREGATION (BEAKER) (test 41.9 MM 55.0-65.0 gnoe=0887) [facility] FIBRINOLYSIS (BEAKER) (test 0.0 % 0.0-5.0 zdxl=8034) CALCIUM, [id number] 19:59:00 Test Item Value Reference Range Comments CALCIUM IONIZED (BEAKER) (test svzs=404) 1.39 mmol/L 1.12-1.27 PH, BLOOD (BEAKER) (test acct=0917) 7.37 BLOOD GAS, [id number] 19:58:00 Test Item Value Reference Range Comments PH ARTERIAL (BEAKER) (test ldgn=640) 7.39 7.35-7.45 PCO2 ARTERIAL (BEAKER) (test pvbi=068) 35 mmHg 35-45 PO2 ARTERIAL (BEAKER) (test wjle=066) 304 mmHg 80-90 O2 SATURATION ARTERIAL (BEAKER) (test wbnn=717) 99.7 % 96.0-97.0 HCO3 ARTERIAL (BEAKER) (test ebku=277) 21 mmol/L 21-29 BASE EXCESS ARTERIAL (BEAKER) (test mcuw=357) -3.8 mmol/L -2.0-3.0 PATIENT TEMPERATURE (BEAKER) (test lqcy=7473) 36.0 C FIO2 (BEAKER) (test fvnd=5063) 100.0 % GLUCOSE-STAT [id number] 19:58:00 Test Item Value Reference Range Comments GLUCOSE RANDOM (BEAKER) (test byiu=331) 143 mg/dL 70-110 HGB/HCT (H&H) - STAT [id number] 19:58:00 Test Item Value Reference Range Comments HEMOGLOBIN (BEAKER) (test oezn=780) 8.7 g/dL 13.0-16.8 HEMATOCRIT (BEAKER) (test ryad=275) 26.0 % 40.0-50.0 SODIUM NA-STAT [id number] 19:57:00 Test Item Value Reference Range Comments SODIUM (BEAKER) (test hley=750) 140 meq/L 135-148 POTASSIUM-STAT [id number] 19:57:00 Test Item Value Reference Range Comments POTASSIUM (BEAKER) (test fkwy=936) 3.9 meq/L 3.6-5.5 [id number] 19:29:00 Test Item Value Reference Range Comments PARTIAL THROMBOPLASTIN TIME (BEAKER) (test > seconds 22.5-36.0 qhij=220) [id number] 19:16:00 Test Item Value Reference Range Comments FIBRINOGEN LEVEL (BEAKER) (test jkqn=094) 271 mg/dl 225-434 PROTHROMBIN [id number] 19:15:00 Test Item Value Reference Range Comments PROTIME (BEAKER) (test avfa=037) 21.3 seconds 11.7-14.7 INR (BEAKER) (test mrkg=976) 1.8 <=5.9 RECOMMENDED COUMADIN/WARFARIN INR THERAPY RANGESSTANDARD DOSE: 2.0 - 3.0 Includes: PROPHYLAXIS forvenous thrombosis, systemic embolization; TREATMENT for venous thrombosis and/or pulmonary embolus.HIGH RISK: Target INR is 2.5-3.5 for patients with mechanical heart valves.PLATELET [id number] 19:06:00 Test Item Value Reference Range Comments PLATELET COUNT (BEAKER) (test ikzt=111) 54 K/CU MM 150-450 BLOOD GAS, [id number] 18:49:00 Test Item Value Reference Range Comments PH ARTERIAL (BEAKER) (test anyb=075) 7.46 7.35-7.45 PCO2 ARTERIAL (BEAKER) (test aqqh=471) 32 mmHg 35-45 PO2 ARTERIAL (BEAKER) (test stph=492) 228 mmHg 80-90 O2 SATURATION ARTERIAL (BEAKER) (test dwxm=463) 99.6 % 96.0-97.0 HCO3 ARTERIAL (BEAKER) (test lpbs=088) 23 mmol/L 21-29 BASE EXCESS ARTERIAL (BEAKER) (test pbbr=149) -1.0 mmol/L -2.0-3.0 PATIENT TEMPERATURE (BEAKER) (test vjlc=5687) 34.0 C FIO2 (BEAKER) (test tzyz=0210) 100.0 % HGB/HCT (H&H) - STAT [id number] 18:44:00 Test Item Value Reference Range Comments HEMOGLOBIN (BEAKER) (test iraj=279) 10.1 g/dL 13.0-16.8 HEMATOCRIT (BEAKER) (test xqac=094) 30.0 % 40.0-50.0 SODIUM NA-STAT [id number] 18:43:00 Test Item Value Reference Range Comments SODIUM (BEAKER) (test gfte=167) 137 meq/L 135-148 POTASSIUM-STAT [id number] 18:43:00 Test Item Value Reference Range Comments POTASSIUM (BEAKER) (test bckb=948) 5.0 meq/L 3.6-5.5 GLUCOSE-STAT [id number] 18:43:00 Test Item Value Reference Range Comments GLUCOSE RANDOM (BEAKER) (test svmc=339) 187 mg/dL 70-110 SODIUM NA-STAT [id number] 18:22:00 Test Item Value Reference Range Comments SODIUM (BEAKER) (test kfun=276) 140 meq/L 135-148 POTASSIUM-STAT [id number] 18:22:00 Test Item Value Reference Range Comments POTASSIUM (BEAKER) (test fbrh=881) 4.7 meq/L 3.6-5.5 BLOOD GAS, [id number] 18:22:00 Test Item Value Reference Range Comments PH ARTERIAL (BEAKER) (test uqls=355) 7.38 7.35-7.45 PCO2 ARTERIAL (BEAKER) (test izqr=774) 43 mmHg 35-45 PO2 ARTERIAL (BEAKER) (test izqs=334) 282 mmHg 80-90 O2 SATURATION ARTERIAL (BEAKER) (test zyso=247) 99.6 % 96.0-97.0 HCO3 ARTERIAL (BEAKER) (test brrm=552) 26 mmol/L 21-29 BASE EXCESS ARTERIAL (BEAKER) (test pelh=599) -0.8 mmol/L -2.0-3.0 PATIENT TEMPERATURE (BEAKER) (test jbjq=2781) 30.7 C FIO2 (BEAKER) (test nctm=9053) 60.0 % GLUCOSE-STAT [id number] 18:22:00 Test Item Value Reference Range Comments GLUCOSE RANDOM (BEAKER) (test pukd=817) 209 mg/dL 70-110 HGB/HCT (H&H) - STAT [id number] 18:22:00 Test Item Value Reference Range Comments HEMOGLOBIN (BEAKER) (test ugdk=604) 10.2 g/dL 13.0-16.8 HEMATOCRIT (BEAKER) (test wabl=016) 30.0 % 40.0-50.0 BLOOD GAS, [id number] 17:57:00 Test Item Value Reference Range Comments PH ARTERIAL (BEAKER) (test ihas=441) 7.37 7.35-7.45 PCO2 ARTERIAL (BEAKER) (test jsjq=928) 41 mmHg 35-45 PO2 ARTERIAL (BEAKER) (test joqw=915) 336 mmHg 80-90 O2 SATURATION ARTERIAL (BEAKER) (test vgfi=900) 99.7 % 96.0-97.0 HCO3 ARTERIAL (BEAKER) (test tkxt=226) 26 mmol/L 21-29 BASE EXCESS ARTERIAL (BEAKER) (test dktg=543) -2.3 mmol/L -2.0-3.0 PATIENT TEMPERATURE (BEAKER) (test wvia=6944) 28.5 C FIO2 (BEAKER) (test erku=9950) 65.0 % GLUCOSE-STAT [id number] 17:57:00 Test Item Value Reference Range Comments GLUCOSE RANDOM (BEAKER) (test acuv=905) 198 mg/dL 70-110 HGB/HCT (H&H) - STAT [id number] 17:57:00 Test Item Value Reference Range Comments HEMOGLOBIN (BEAKER) (test jpdl=183) 10.3 g/dL 13.0-16.8 HEMATOCRIT (BEAKER) (test xatq=449) 30.0 % 40.0-50.0 SODIUM NA-STAT [id number] 17:56:00 Test Item Value Reference Range Comments SODIUM (BEAKER) (test pqog=467) 138 meq/L 135-148 POTASSIUM-STAT [id number] 17:56:00 Test Item Value Reference Range Comments POTASSIUM (BEAKER) (test zdck=581) 4.7 meq/L 3.6-5.5 BLOOD GAS, [id number] 17:28:00 Test Item Value Reference Range Comments PH ARTERIAL (BEAKER) (test qsoc=374) 7.37 7.35-7.45 PCO2 ARTERIAL (BEAKER) (test bzjm=170) 40 mmHg 35-45 PO2 ARTERIAL (BEAKER) (test uckx=391) 337 mmHg 80-90 O2 SATURATION ARTERIAL (BEAKER) (test qgfn=879) 99.7 % 96.0-97.0 HCO3 ARTERIAL (BEAKER) (test huen=303) 25 mmol/L 21-29 BASE EXCESS ARTERIAL (BEAKER) (test noly=364) -2.5 mmol/L -2.0-3.0 PATIENT TEMPERATURE (BEAKER) (test oxoa=4555) 28.2 C FIO2 (BEAKER) (test wdsf=9472) 65.0 % GLUCOSE-STAT [id number] 17:28:00 Test Item Value Reference Range Comments GLUCOSE RANDOM (BEAKER) (test mthi=962) 223 mg/dL 70-110 HGB/HCT (H&H) - STAT [id number] 17:28:00 Test Item Value Reference Range Comments HEMOGLOBIN (BEAKER) (test nebh=616) 10.1 g/dL 13.0-16.8 HEMATOCRIT (BEAKER) (test pxxm=033) 30.0 % 40.0-50.0 SODIUM NA-STAT [id number] 17:27:00 Test Item Value Reference Range Comments SODIUM (BEAKER) (test xtvj=328) 140 meq/L 135-148 POTASSIUM-STAT [id number] 17:27:00 Test Item Value Reference Range Comments POTASSIUM (BEAKER) (test ccre=148) 4.8 meq/L 3.6-5.5 THROMBOELASTOGRAPH ([id number] 17:02:00 Test Item Value Reference Range Comments TEG ACTIVATED CLOTTING TIME (BEAKER) minutes 4.0-7.0 No clot detected. (test ejjt=3138) TEG FIBRINOGEN ACTIVITY (BEAKER) (test degrees 61.0-73.0 No clot detected. cuuk=4043) TEG PLT. AGGREGATION (BEAKER) (test MM 55.0-65.0 No clot detected. bifk=6187) TEG FIBRINOLYSIS (BEAKER) (test % 0.0-5.0 No clot detected. vblg=0441) TGH ACTIVATED CLOTTING TIME (BEAKER) 8.8 minutes 4.0-7.0 (test ujww=6114) TGH FIBRINOGEN ACTIVITY (BEAKER) (test 59.5 degrees 61.0-73.0 axeq=2690) TGH PLT. AGGREGATION (BEAKER) (test 54.0 MM 55.0-65.0 hqkb=0174) TGH FIBRINOLYSIS (BEAKER) (test 0.0 % 0.0-5.0 cydi=3508) HGB/HCT (H&H) - STAT [id number] 17:01:00 Test Item Value Reference Range Comments HEMOGLOBIN (BEAKER) (test tdem=805) 10.1 g/dL 13.0-16.8 HEMATOCRIT (BEAKER) (test syem=966) 30.0 % 40.0-50.0 BLOOD GAS, [id number] 17:00:00 Test Item Value Reference Range Comments PH ARTERIAL (BEAKER) (test qnve=481) 7.37 7.35-7.45 PCO2 ARTERIAL (BEAKER) (test tadi=199) 39 mmHg 35-45 PO2 ARTERIAL (BEAKER) (test eyxz=891) 310 mmHg 80-90 O2 SATURATION ARTERIAL (BEAKER) (test bvaq=446) 99.7 % 96.0-97.0 HCO3 ARTERIAL (BEAKER) (test pqwu=590) 25 mmol/L 21-29 BASE EXCESS ARTERIAL (BEAKER) (test galu=965) -2.9 mmol/L -2.0-3.0 PATIENT TEMPERATURE (BEAKER) (test lqqj=9361) 28.5 C FIO2 (BEAKER) (test qgmb=1536) 65.0 % GLUCOSE-STAT [id number] 17:00:00 Test Item Value Reference Range Comments GLUCOSE RANDOM (BEAKER) (test ixyz=517) 243 mg/dL 70-110 SODIUM NA-STAT [id number] 16:59:00 Test Item Value Reference Range Comments SODIUM (BEAKER) (test mvfi=932) 139 meq/L 135-148 POTASSIUM-STAT [id number] 16:59:00 Test Item Value Reference Range Comments POTASSIUM (BEAKER) (test fjvj=523) 4.6 meq/L 3.6-5.5 [id number] 16:47:00 Test Item Value Reference Range Comments PARTIAL THROMBOPLASTIN TIME (BEAKER) (test > seconds 22.5-36.0 myql=724) BLOOD GAS, [id number] 16:18:00 Test Item Value Reference Range Comments PH ARTERIAL (BEAKER) (test rhfu=776) 7.50 7.35-7.45 PCO2 ARTERIAL (BEAKER) (test bfme=622) 30 mmHg 35-45 PO2 ARTERIAL (BEAKER) (test spbl=166) 306 mmHg 80-90 O2 SATURATION ARTERIAL (BEAKER) (test mxml=955) 99.8 % 96.0-97.0 HCO3 ARTERIAL (BEAKER) (test ypqf=833) 25 mmol/L 21-29 BASE EXCESS ARTERIAL (BEAKER) (test doxm=569) 0.0 mmol/L -2.0-3.0 PATIENT TEMPERATURE (BEAKER) (test bfvh=0752) 27.9 C FIO2 (BEAKER) (test sdij=1648) 65.0 % GLUCOSE-STAT [id number] 16:18:00 Test Item Value Reference Range Comments GLUCOSE RANDOM (BEAKER) (test hmkq=354) 279 mg/dL 70-110 HGB/HCT (H&H) - STAT [id number] 16:18:00 Test Item Value Reference Range Comments HEMOGLOBIN (BEAKER) (test utzq=511) 7.0 g/dL 13.0-16.8 HEMATOCRIT (BEAKER) (test cucy=048) 21.0 % 40.0-50.0 SODIUM NA-STAT [id number] 16:17:00 Test Item Value Reference Range Comments SODIUM (BEAKER) (test qnyc=494) 137 meq/L 135-148 POTASSIUM-STAT [id number] 16:17:00 Test Item Value Reference Range Comments POTASSIUM (BEAKER) (test jihd=570) 4.6 meq/L 3.6-5.5 [id number] 16:15:00 Test Item Value Reference Range Comments FIBRINOGEN LEVEL (BEAKER) (test kbup=261) 255 mg/dl 225-434 PROTHROMBIN [id number] 16:14:00 Test Item Value Reference Range Comments PROTIME (BEAKER) (test vhmg=740) 20.2 seconds 11.7-14.7 INR (BEAKER) (test knse=352) 1.7 <=5.9 RECOMMENDED COUMADIN/WARFARIN INR THERAPY RANGESSTANDARD DOSE: 2.0 - 3.0 Includes: PROPHYLAXIS forvenous thrombosis, systemic embolization; TREATMENT for venous thrombosis and/or pulmonary embolus.HIGH RISK: Target INR is 2.5-3.5 for patients with mechanical heart valves.PLATELET [id number] 16:02:00 Test Item Value Reference Range Comments PLATELET COUNT (BEAKER) (test dsyf=926) 57 K/CU MM 150-450 CALCIUM, [id number] 15:51:00 Test Item Value Reference Range Comments CALCIUM IONIZED (BEAKER) (test igmc=929) 0.82 mmol/L 1.12-1.27 PH, BLOOD (BEAKER) (test cgmd=9995) 7.45 BLOOD GAS, [id number] 15:51:00 Test Item Value Reference Range Comments PH ARTERIAL (BEAKER) (test cmpk=024) 7.45 7.35-7.45 PCO2 ARTERIAL (BEAKER) (test flkr=641) 40 mmHg 35-45 PO2 ARTERIAL (BEAKER) (test ejzi=396) 336 mmHg 80-90 O2 SATURATION ARTERIAL (BEAKER) (test ymzi=192) 99.8 % 96.0-97.0 HCO3 ARTERIAL (BEAKER) (test wfvm=248) 28 mmol/L 21-29 BASE EXCESS ARTERIAL (BEAKER) (test rspv=364) 3.1 mmol/L -2.0-3.0 PATIENT TEMPERATURE (BEAKER) (test jjrw=7608) 35.6 C FIO2 (BEAKER) (test ckuw=4510) 100.0 % GLUCOSE-STAT [id number] 15:51:00 Test Item Value Reference Range Comments GLUCOSE RANDOM (BEAKER) (test tqcb=759) 190 mg/dL 70-110 HGB/HCT (H&H) - STAT [id number] 15:51:00 Test Item Value Reference Range Comments HEMOGLOBIN (BEAKER) (test krcx=945) 7.6 g/dL 13.0-16.8 HEMATOCRIT (BEAKER) (test bkab=095) 22.0 % 40.0-50.0 POTASSIUM-STAT [id number] 15:51:00 Test Item Value Reference Range Comments POTASSIUM (BEAKER) (test oppq=143) 5.6 meq/L 3.6-5.5 SODIUM NA-STAT [id number] 15:50:00 Test Item Value Reference Range Comments SODIUM (BEAKER) (test bxnt=000) 139 meq/L 135-148 BLOOD GAS, [id number] 15:43:00 Test Item Value Reference Range Comments PH ARTERIAL (BEAKER) (test chbd=620) 7.45 7.35-7.45 PCO2 ARTERIAL (BEAKER) (test btez=654) 39 mmHg 35-45 PO2 ARTERIAL (BEAKER) (test jwab=429) 315 mmHg 80-90 O2 SATURATION ARTERIAL (BEAKER) (test szuv=847) 99.7 % 96.0-97.0 HCO3 ARTERIAL (BEAKER) (test puzc=181) 27 mmol/L 21-29 BASE EXCESS ARTERIAL (BEAKER) (test ftid=664) 1.9 mmol/L -2.0-3.0 PATIENT TEMPERATURE (BEAKER) (test obfk=0273) 34.1 C FIO2 (BEAKER) (test ijni=5508) 75.0 % GLUCOSE-STAT [id number] 15:43:00 Test Item Value Reference Range Comments GLUCOSE RANDOM (BEAKER) (test klrv=793) 189 mg/dL 70-110 HGB/HCT (H&H) - STAT [id number] 15:43:00 Test Item Value Reference Range Comments HEMOGLOBIN (BEAKER) (test zrfn=351) 8.0 g/dL 13.0-16.8 HEMATOCRIT (BEAKER) (test wdui=203) 24.0 % 40.0-50.0 POTASSIUM-STAT [id number] 15:43:00 Test Item Value Reference Range Comments POTASSIUM (BEAKER) (test twzy=652) 5.7 meq/L 3.6-5.5 SODIUM NA-STAT [id number] 15:42:00 Test Item Value Reference Range Comments SODIUM (BEAKER) (test jvpe=885) 136 meq/L 135-148 SODIUM NA-STAT [id number] 15:06:00 Test Item Value Reference Range Comments SODIUM (BEAKER) (test koej=037) 139 meq/L 135-148 BLOOD GAS, [id number] 15:06:00 Test Item Value Reference Range Comments PH ARTERIAL (BEAKER) (test elde=119) 7.45 7.35-7.45 PCO2 ARTERIAL (BEAKER) (test mneb=360) 40 mmHg 35-45 PO2 ARTERIAL (BEAKER) (test myxm=444) 293 mmHg 80-90 O2 SATURATION ARTERIAL (BEAKER) (test fmje=429) 99.7 % 96.0-97.0 HCO3 ARTERIAL (BEAKER) (test cdme=975) 31 mmol/L 21-29 BASE EXCESS ARTERIAL (BEAKER) (test mrvn=860) 3.6 mmol/L -2.0-3.0 PATIENT TEMPERATURE (BEAKER) (test jgxg=5969) 26.7 C FIO2 (BEAKER) (test amsb=1096) 60.0 % POTASSIUM-STAT [id number] 15:06:00 Test Item Value Reference Range Comments POTASSIUM (BEAKER) (test tniz=094) 5.8 meq/L 3.6-5.5 GLUCOSE-STAT [id number] 15:06:00 Test Item Value Reference Range Comments GLUCOSE RANDOM (BEAKER) (test uyzr=741) 192 mg/dL 70-110 HGB/HCT (H&H) - STAT [id number] 15:06:00 Test Item Value Reference Range Comments HEMOGLOBIN (BEAKER) (test hqnj=195) 8.2 g/dL 13.0-16.8 HEMATOCRIT (BEAKER) (test mucf=408) 24.0 % 40.0-50.0 POTASSIUM-STAT [id number] 14:41:00 Test Item Value Reference Range Comments POTASSIUM (BEAKER) (test vzxp=657) 5.2 meq/L 3.6-5.5 BLOOD GAS, [id number] 14:41:00 Test Item Value Reference Range Comments PH ARTERIAL (BEAKER) (test hjin=681) 7.43 7.35-7.45 PCO2 ARTERIAL (BEAKER) (test ljga=609) 40 mmHg 35-45 PO2 ARTERIAL (BEAKER) (test wtrb=609) 321 mmHg 80-90 O2 SATURATION ARTERIAL (BEAKER) (test tkis=309) 99.7 % 96.0-97.0 HCO3 ARTERIAL (BEAKER) (test ibnb=976) 29 mmol/L 21-29 BASE EXCESS ARTERIAL (BEAKER) (test ebib=675) 2.1 mmol/L -2.0-3.0 PATIENT TEMPERATURE (BEAKER) (test fmmy=4542) 26.6 C FIO2 (BEAKER) (test mlan=7606) 60.0 % SODIUM NA-STAT [id number] 14:41:00 Test Item Value Reference Range Comments SODIUM (BEAKER) (test stka=693) 134 meq/L 135-148 GLUCOSE-STAT [id number] 14:41:00 Test Item Value Reference Range Comments GLUCOSE RANDOM (BEAKER) (test wgfk=641) 195 mg/dL 70-110 HGB/HCT (H&H) - STAT [id number] 14:41:00 Test Item Value Reference Range Comments HEMOGLOBIN (BEAKER) (test ogje=240) 8.2 g/dL 13.0-16.8 HEMATOCRIT (BEAKER) (test lyqf=585) 24.0 % 40.0-50.0 BLOOD GAS, [id number] 14:10:00 Test Item Value Reference Range Comments PH ARTERIAL (BEAKER) (test gyxq=347) 7.41 7.35-7.45 PCO2 ARTERIAL (BEAKER) (test imgp=318) 41 mmHg 35-45 PO2 ARTERIAL (BEAKER) (test abkn=411) 313 mmHg 80-90 O2 SATURATION ARTERIAL (BEAKER) (test ljdv=868) 99.7 % 96.0-97.0 HCO3 ARTERIAL (BEAKER) (test hykc=573) 29 mmol/L 21-29 BASE EXCESS ARTERIAL (BEAKER) (test amhp=332) 1.4 mmol/L -2.0-3.0 PATIENT TEMPERATURE (BEAKER) (test zpuz=5028) 27.0 C FIO2 (BEAKER) (test qkix=9160) 60.0 % GLUCOSE-STAT [id number] 14:10:00 Test Item Value Reference Range Comments GLUCOSE RANDOM (BEAKER) (test avmx=108) 177 mg/dL 70-110 HGB/HCT (H&H) - STAT [id number] 14:10:00 Test Item Value Reference Range Comments HEMOGLOBIN (BEAKER) (test vnuc=920) 8.5 g/dL 13.0-16.8 HEMATOCRIT (BEAKER) (test wopy=087) 25.0 % 40.0-50.0 SODIUM NA-STAT [id number] 14:09:00 Test Item Value Reference Range Comments SODIUM (BEAKER) (test fged=933) 136 meq/L 135-148 POTASSIUM-STAT [id number] 14:09:00 Test Item Value Reference Range Comments POTASSIUM (BEAKER) (test evdv=608) 5.0 meq/L 3.6-5.5 SODIUM NA-STAT [id number] 13:39:00 Test Item Value Reference Range Comments SODIUM (BEAKER) (test ojfy=513) 136 meq/L 135-148 POTASSIUM-STAT [id number] 13:39:00 Test Item Value Reference Range Comments POTASSIUM (BEAKER) (test ckfp=221) 5.0 meq/L 3.6-5.5 BLOOD GAS, [id number] 13:39:00 Test Item Value Reference Range Comments PH ARTERIAL (BEAKER) (test tiol=666) 7.46 7.35-7.45 PCO2 ARTERIAL (BEAKER) (test vijy=943) 37 mmHg 35-45 PO2 ARTERIAL (BEAKER) (test odkr=545) 246 mmHg 80-90 O2 SATURATION ARTERIAL (BEAKER) (test sbnq=060) 99.6 % 96.0-97.0 HCO3 ARTERIAL (BEAKER) (test yvfw=355) 29 mmol/L 21-29 BASE EXCESS ARTERIAL (BEAKER) (test zdvx=945) 1.7 mmol/L -2.0-3.0 PATIENT TEMPERATURE (BEAKER) (test jgum=6892) 26.5 C FIO2 (BEAKER) (test mcuv=8852) 60.0 % GLUCOSE-STAT [id number] 13:39:00 Test Item Value Reference Range Comments GLUCOSE RANDOM (BEAKER) (test esuj=113) 179 mg/dL 70-110 HGB/HCT (H&H) - STAT [id number] 13:39:00 Test Item Value Reference Range Comments HEMOGLOBIN (BEAKER) (test vecc=179) 8.1 g/dL 13.0-16.8 HEMATOCRIT (BEAKER) (test xtna=467) 24.0 % 40.0-50.0 CALCIUM, [id number] 12:31:00 Test Item Value Reference Range Comments CALCIUM IONIZED (BEAKER) (test wcot=897) 1.09 mmol/L 1.12-1.27 PH, BLOOD (BEAKER) (test qlen=6227) 7.45 GLUCOSE-STAT [id number] 12:30:00 Test Item Value Reference Range Comments GLUCOSE RANDOM (BEAKER) (test zdlo=174) 93 mg/dL 70-110 SODIUM NA-STAT [id number] 12:30:00 Test Item Value Reference Range Comments SODIUM (BEAKER) (test dcdt=521) 140 meq/L 135-148 POTASSIUM-STAT [id number] 12:30:00 Test Item Value Reference Range Comments POTASSIUM (BEAKER) (test jfum=368) 3.9 meq/L 3.6-5.5 BLOOD GAS, [id number] 12:30:00 Test Item Value Reference Range Comments PH ARTERIAL (BEAKER) (test upvy=783) 7.48 7.35-7.45 PCO2 ARTERIAL (BEAKER) (test quvl=192) 39 mmHg 35-45 PO2 ARTERIAL (BEAKER) (test hmkj=326) 128 mmHg 80-90 O2 SATURATION ARTERIAL (BEAKER) (test frya=905) 98.9 % 96.0-97.0 HCO3 ARTERIAL (BEAKER) (test blaf=570) 29 mmol/L 21-29 BASE EXCESS ARTERIAL (BEAKER) (test ljjy=938) 4.1 mmol/L -2.0-3.0 PATIENT TEMPERATURE (BEAKER) (test truv=7231) 35.0 C FIO2 (BEAKER) (test jhed=0079) 100.0 % HGB/HCT (H&H) - STAT [id number] 12:30:00 Test Item Value Reference Range Comments HEMOGLOBIN (BEAKER) (test jmrl=035) 9.3 g/dL 13.0-16.8 HEMATOCRIT (BEAKER) (test fcue=511) 27.0 % 40.0-50.0 HEMOGLOBIN [id number] 10:02:00 Test Item Value Reference Range Comments HEMOGLOBIN A1C (BEAKER) (test rwwi=869) 4.4 % 4.3-6.1 POCT-GLUCOSE [id number] 09:52:00 Test Item Value Reference Range Comments POC-GLUCOSE METER (BEAKER) 115 mg/dL 70-110 TESTED AT [facility] [address] [facility] (test hjxx=4956) [facility] [address] PROTHROMBIN [id number] 02:41:00 Test Item Value Reference Range Comments PROTIME (BEAKER) (test qcqi=148) 14.9 seconds 11.7-14.7 INR (BEAKER) (test togb=517) 1.2 <=5.9 RECOMMENDED COUMADIN/WARFARIN INR THERAPY RANGESSTANDARD DOSE: 2.0 - 3.0 Includes: PROPHYLAXIS forvenous thrombosis, systemic embolization; TREATMENT for venous thrombosis and/or pulmonary embolus.HIGH RISK: Target INR is 2.5-3.5 for patients with mechanical heart valves.BASIC METABOLIC [id number] 00:29: 00 Test Item Value Reference Range Comments SODIUM (BEAKER) (test 137 meq/L 136-145 gsfw=970) POTASSIUM (BEAKER) (test 4.4 meq/L 3.5-5.1 Specimen slightly vuya=739) hemolyzed CHLORIDE (BEAKER) (test 100 meq/L 98-107 ugbo=058) CO2 (BEAKER) (test 25 meq/L 22-29 omnq=175) BLOOD UREA NITROGEN 32 mg/dL 7-21 (BEAKER) (test anaf=927) CREATININE (BEAKER) (test 5.79 mg/dL 0.57-1.25 Specimen slightly xifw=702) hemolyzed GLUCOSE RANDOM (BEAKER) 126 mg/dL 70-105 (test jrwc=434) CALCIUM (BEAKER) (test 9.8 mg/dL 8.4-10.2 gsxz=777) EGFR (BEAKER) (test 12 mL/min/1.73 sq m ESTIMATED GFR IS NOT mlxf=6270) ACCURATE CREATININE CLEARANCE IN PREDICTING GLOMERULAR FILTRATION RATE. ESTIMATED GFR IS NOT APPLICABLE FOR DIALYSIS PATIENTS. [id number] 00:22:00 Test Item Value Reference Range Comments MAGNESIUM (BEAKER) (test 2.5 mg/dL 1.6-2.6 Specimen slightly hemolyzed slxu=949) [id number] 00:14:00 Test Item Value Reference Range Comments PARTIAL THROMBOPLASTIN TIME (BEAKER) (test 38.6 seconds 22.5-36.0 wkdn=728) CBC W/PLT COUNT & AUTO [id number] 00:07:00 Test Item Value Reference Range Comments WHITE BLOOD CELL COUNT (BEAKER) (test ilyg=163) 5.2 K/ L 3.5-10.5 RED BLOOD CELL COUNT (BEAKER) (test vmwc=786) 3.16 M/ L 4.63-6.08 HEMOGLOBIN (BEAKER) (test ndsv=450) 10.1 GM/DL 13.7-17.5 HEMATOCRIT (BEAKER) (test swjj=775) 31.4 % 40.1-51.0 MEAN CORPUSCULAR VOLUME (BEAKER) (test qajt=837) 99.4 fL 79.0-92.2 MEAN CORPUSCULAR HEMOGLOBIN (BEAKER) (test 32.0 pg 25.7-32.2 cqcm=950) MEAN CORPUSCULAR HEMOGLOBIN CONC (BEAKER) (test 32.2 GM/DL 32.3-36.5 dzjf=647) RED CELL DISTRIBUTION WIDTH (BEAKER) (test 16.7 % 11.6-14.4 ksyb=109) PLATELET COUNT (BEAKER) (test yinf=773) 112 K/CU MM 150-450 MEAN PLATELET VOLUME (BEAKER) (test fwcl=602) 9.6 fL 9.4-12.4 NUCLEATED RED BLOOD CELLS (BEAKER) (test 0 /100 WBC 0-0 wqeh=074) NEUTROPHILS RELATIVE PERCENT (BEAKER) (test 69 % twte=887) LYMPHOCYTES RELATIVE PERCENT (BEAKER) (test 19 % mxhs=057) MONOCYTES RELATIVE PERCENT (BEAKER) (test 10 % emnq=888) EOSINOPHILS RELATIVE PERCENT (BEAKER) (test 1 % wtcr=354) BASOPHILS RELATIVE PERCENT (BEAKER) (test 1 % utxm=399) NEUTROPHILS ABSOLUTE COUNT (BEAKER) (test 3.58 K/ L 1.78-5.38 ccfh=602) LYMPHOCYTES ABSOLUTE COUNT (BEAKER) (test 0.98 K/ L 1.32-3.57 ngch=999) MONOCYTES ABSOLUTE COUNT (BEAKER) (test 0.49 K/ L 0.30-0.82 scne=340) EOSINOPHILS ABSOLUTE COUNT (BEAKER) (test 0.07 K/ L 0.04-0.54 fpuz=297) BASOPHILS ABSOLUTE COUNT (BEAKER) (test 0.04 K/ L 0.01-0.08 zhrl=760) IMMATURE GRANULOCYTES-RELATIVE PERCENT (BEAKER) 0 % 0-1 (test scqw=1286) [id number] 17:03:00 Test Item Value Reference Range Comments THYROID STIMULATING HORMONE (BEAKER) (test 1.30 uIU/mL 0.35-4.94 mrub=364) HEPATIC FUNCTION [id number] 16:43:00 Test Item Value Reference Range Comments TOTAL PROTEIN (BEAKER) (test avki=546) 8.0 gm/dL 6.0-8.3 ALBUMIN (BEAKER) (test qfpy=4145) 3.9 g/dL 3.5-5.0 BILIRUBIN TOTAL (BEAKER) (test rhaw=135) 1.3 mg/dL 0.2-1.2 BILIRUBIN DIRECT (BEAKER) (test xqjw=104) 0.7 mg/dL 0.1-0.5 ALKALINE PHOSPHATASE (BEAKER) (test dmhz=729) 74 U/L 40-150 AST (SGOT) (BEAKER) (test rjog=791) 60 U/L 5-34 ALT (SGPT) (BEAKER) (test rdwy=032) 69 U/L 6-55 BASIC METABOLIC [id number] 15:47:00 Test Item Value Reference Range Comments SODIUM (BEAKER) (test 135 meq/L 136-145 whus=507) POTASSIUM (BEAKER) (test 4.5 meq/L 3.5-5.1 fblf=358) CHLORIDE (BEAKER) (test 94 meq/L 98-107 rkbg=539) CO2 (BEAKER) (test 23 meq/L 22-29 vpfo=213) BLOOD UREA NITROGEN 78 mg/dL 7-21 (BEAKER) (test beat=637) CREATININE (BEAKER) (test 10.41 mg/dL 0.57-1.25 ioap=134) GLUCOSE RANDOM (BEAKER) 111 mg/dL 70-105 (test rsfr=175) CALCIUM (BEAKER) (test 9.9 mg/dL 8.4-10.2 qnpc=866) EGFR (BEAKER) (test 6 mL/min/1.73 sq m ESTIMATED GFR IS NOT gamf=8057) ACCURATE CREATININE CLEARANCE IN PREDICTING GLOMERULAR FILTRATION RATE. ESTIMATED GFR IS NOT APPLICABLE FOR DIALYSIS PATIENTS. [id number] 14:57:00 Test Item Value Reference Range Comments PARTIAL THROMBOPLASTIN TIME (BEAKER) (test 82.9 seconds 22.5-36.0 nsyf=037) CBC W/PLT COUNT & AUTO [id number] 14:48:00 Test Item Value Reference Range Comments WHITE BLOOD CELL COUNT (BEAKER) (test flgr=128) 6.6 K/ L 3.5-10.5 RED BLOOD CELL COUNT (BEAKER) (test zxev=194) 3.02 M/ L 4.63-6.08 HEMOGLOBIN (BEAKER) (test hvor=428) 9.9 GM/DL 13.7-17.5 HEMATOCRIT (BEAKER) (test fohe=835) 29.3 % 40.1-51.0 MEAN CORPUSCULAR VOLUME (BEAKER) (test vzvf=094) 97.0 fL 79.0-92.2 MEAN CORPUSCULAR HEMOGLOBIN (BEAKER) (test 32.8 pg 25.7-32.2 cyfp=151) MEAN CORPUSCULAR HEMOGLOBIN CONC (BEAKER) (test 33.8 GM/DL 32.3-36.5 ftlx=536) RED CELL DISTRIBUTION WIDTH (BEAKER) (test 16.7 % 11.6-14.4 gbgu=669) PLATELET COUNT (BEAKER) (test fixu=000) 116 K/CU MM 150-450 MEAN PLATELET VOLUME (BEAKER) (test meln=255) 9.9 fL 9.4-12.4 NUCLEATED RED BLOOD CELLS (BEAKER) (test 0 /100 WBC 0-0 gocm=411) NEUTROPHILS RELATIVE PERCENT (BEAKER) (test 68 % jlsx=954) LYMPHOCYTES RELATIVE PERCENT (BEAKER) (test 20 % nuro=026) MONOCYTES RELATIVE PERCENT (BEAKER) (test 10 % sdsc=155) EOSINOPHILS RELATIVE PERCENT (BEAKER) (test 1 % fprj=222) BASOPHILS RELATIVE PERCENT (BEAKER) (test 0 % jdfm=240) NEUTROPHILS ABSOLUTE COUNT (BEAKER) (test 4.44 K/ L 1.78-5.38 fizg=806) LYMPHOCYTES ABSOLUTE COUNT (BEAKER) (test 1.33 K/ L 1.32-3.57 lsuq=267) MONOCYTES ABSOLUTE COUNT (BEAKER) (test 0.66 K/ L 0.30-0.82 fdcw=188) EOSINOPHILS ABSOLUTE COUNT (BEAKER) (test 0.06 K/ L 0.04-0.54 rtga=528) BASOPHILS ABSOLUTE COUNT (BEAKER) (test 0.02 K/ L 0.01-0.08 yznj=557) IMMATURE GRANULOCYTES-RELATIVE PERCENT (BEAKER) 1 % 0-1 (test vgxv=2525) POCT-GLUCOSE [id number] 11:13:00 Test Item Value Reference Range Comments POC-GLUCOSE METER (BEAKER) 207 mg/dL 70-110 TESTED AT [address] (test esoy=3732) [facility] [id number] POCT-GLUCOSE [id number] 08:08:00 Test Item Value Reference Range Comments POC-GLUCOSE METER (BEAKER) 124 mg/dL 70-110 TESTED AT [address] (test czbk=9000) [facility] [id number] 06:51:00 Test Item Value Reference Range Comments PARTIAL THROMBOPLASTIN TIME (BEAKER) (test 54.6 seconds 22.5-36.0 obfj=529) HEPATITIS B SURFACE [id number] 00:28:00 Test Item Value Reference Range Comments HEPATITIS B SURFACE ANTIGEN (2) (BEAKER) (test Nonreactive Nonreactive yblb=8356) [id number] 00:06:00 Test Item Value Reference Range Comments PHOSPHORUS (BEAKER) (test adqz=540) 3.2 mg/dL 2.3-4.7 [id number] 00:03:00 Test Item Value Reference Range Comments PARTIAL THROMBOPLASTIN TIME (BEAKER) (test 36.0 seconds 22.5-36.0 tbje=828) CBC W/PLT COUNT & AUTO [id number] 23:45:00 Test Item Value Reference Range Comments WHITE BLOOD CELL COUNT (BEAKER) (test guha=986) 5.8 K/ L 3.5-10.5 RED BLOOD CELL COUNT (BEAKER) (test owov=749) 2.99 M/ L 4.63-6.08 HEMOGLOBIN (BEAKER) (test wnab=764) 9.7 GM/DL 13.7-17.5 HEMATOCRIT (BEAKER) (test digt=934) 29.3 % 40.1-51.0 MEAN CORPUSCULAR VOLUME (BEAKER) (test vsbc=759) 98.0 fL 79.0-92.2 MEAN CORPUSCULAR HEMOGLOBIN (BEAKER) (test 32.4 pg 25.7-32.2 vvib=969) MEAN CORPUSCULAR HEMOGLOBIN CONC (BEAKER) (test 33.1 GM/DL 32.3-36.5 utup=724) RED CELL DISTRIBUTION WIDTH (BEAKER) (test 16.5 % 11.6-14.4 dgjk=846) PLATELET COUNT (BEAKER) (test rjea=471) 103 K/CU MM 150-450 MEAN PLATELET VOLUME (BEAKER) (test zpla=529) 9.5 fL 9.4-12.4 NUCLEATED RED BLOOD CELLS (BEAKER) (test 0 /100 WBC 0-0 stjm=407) NEUTROPHILS RELATIVE PERCENT (BEAKER) (test 66 % gjbn=097) LYMPHOCYTES RELATIVE PERCENT (BEAKER) (test 22 % tkep=163) MONOCYTES RELATIVE PERCENT (BEAKER) (test 10 % mius=848) EOSINOPHILS RELATIVE PERCENT (BEAKER) (test 2 % bjhg=477) BASOPHILS RELATIVE PERCENT (BEAKER) (test 1 % bqfl=018) NEUTROPHILS ABSOLUTE COUNT (BEAKER) (test 3.79 K/ L 1.78-5.38 wmtj=211) LYMPHOCYTES ABSOLUTE COUNT (BEAKER) (test 1.26 K/ L 1.32-3.57 awms=210) MONOCYTES ABSOLUTE COUNT (BEAKER) (test 0.59 K/ L 0.30-0.82 sbge=641) EOSINOPHILS ABSOLUTE COUNT (BEAKER) (test 0.10 K/ L 0.04-0.54 gmdf=062) BASOPHILS ABSOLUTE COUNT (BEAKER) (test 0.03 K/ L 0.01-0.08 rvhh=116) IMMATURE GRANULOCYTES-RELATIVE PERCENT (BEAKER) 0 % 0-1 (test esml=7576) POCT-GLUCOSE [id number] 17:39:00 Test Item Value Reference Range Comments POC-GLUCOSE METER (BEAKER) 116 mg/dL 70-110 TESTED AT [address] (test dcyd=1985) [facility] [address] [id number] 15:35:00 Test Item Value Reference Range Comments THYROID STIMULATING HORMONE (BEAKER) (test 1.39 uIU/mL 0.35-4.94 moab=115) [id number] 15:06:00 Test Item Value Reference Range Comments PARTIAL THROMBOPLASTIN TIME (BEAKER) (test 31.0 seconds 22.5-36.0 veui=771) Prior to initiating heparinPROTHROMBIN TIME/[id number] 15:05:00 Test Item Value Reference Range Comments PROTIME (BEAKER) (test frog=536) 14.4 seconds 11.7-14.7 INR (BEAKER) (test brtu=784) 1.1 <=5.9 RECOMMENDED COUMADIN/WARFARIN INR THERAPY RANGESSTANDARD DOSE: 2.0 - 3.0 Includes: PROPHYLAXIS forvenous thrombosis, systemic embolization; TREATMENT for venous thrombosis and/or pulmonary embolus.HIGH RISK: Target INR is 2.5-3.5 for patients with mechanical heart valves.PLATELET [id number] 14:52:00 Test Item Value Reference Range Comments PLATELET COUNT (BEAKER) (test cduh=496) 109 K/CU MM 150-450 POCT-GLUCOSE [id number] 12:00:00 Test Item Value Reference Range Comments POC-GLUCOSE METER (BEAKER) 186 mg/dL 70-110 TESTED AT [facility] [address] (test gelj=4318) [facility] [address] RAD, CHEST, 1 VIEW, NON [id number] 11:43:00Reason for exam:->SOB, known severe MRShould this be performed at the bedside?->YesFINAL REPORT Chest one view AP 01/08/2018 11:42 AM CLINICAL INDICATION: SOB, known severe MR COMPARISON: 12/02/2017 IMPRESSION: Cardiomediastinal contours are stable. There is mild pulmonary edema. There are trace bilateral pleural effusions. Signed: Yevgeniy Anderson Verified Date/Time: 01/08/2018 11: 43:52 Reading Location: [facility] Radiology Reading Room RAPID [id number] 10 :04:00 Test Item Value Reference Range Comments RAPID CKMB (BEAKER) (test ntcu=7530) 1.5 ng/mL 0.0-4.3 RAPID TROPONIN [id number] 10:04:00 Test Item Value Reference Range Comments RAPID TROPONIN I (BEAKER) (test ipfm=0609) < ng/mL <0.05 RAD, CHEST, 2 [id number] 10:00:00Reason for exam:->Chest PainFINAL REPORT Chest two views Discussion: Heart size upper limits of normal. Bilateral interstitial edema with small bilateral effusions. No pneumothorax. Bones and soft tissues unremarkable. Signed: Rhea Colindres Verified Date/Time: 12/02/2017 10:00:39 Reading Location:[facility] Radiology Reading Room B-TYPE NATRIURETIC FACTOR (BNP)2017-12-02 09:56:00 Test Item Value Reference Range Comments B-TYPE NATRIURETIC PEPTIDE (BEAKER) (test 1990 pg/mL 0-100 nrzd=035) BASIC METABOLIC [id number] 09:52:00 Test Item Value Reference Range Comments SODIUM (BEAKER) (test 141 meq/L 135-148 enew=284) POTASSIUM (BEAKER) (test 3.9 meq/L 3.6-5.5 tygt=016) CHLORIDE (BEAKER) (test 94 meq/L 98-106 corh=378) CO2 (BEAKER) (test 28 meq/L 24-32 jtpg=407) BLOOD UREA NITROGEN 59 mg/dL 10-26 (BEAKER) (test sydm=106) CREATININE (BEAKER) (test 8.47 mg/dL 0.50-1.20 czkn=911) GLUCOSE RANDOM (BEAKER) 89 mg/dL 70-110 (test arnd=366) CALCIUM (BEAKER) (test 9.5 mg/dL 8.5-10.5 jsrl=091) EGFR (BEAKER) (test 8 mL/min/1.73 sq m ESTIMATED GFR IS NOT rgac=8162) ACCURATE CREATININE CLEARANCE IN PREDICTING GLOMERULAR FILTRATION RATE. ESTIMATED GFR IS NOT APPLICABLE FOR DIALYSIS PATIENTS. [id number] 09:51:00 Test Item Value Reference Range Comments MAGNESIUM (BEAKER) (test iqbm=324) 1.7 mg/dL 1.5-3.0 CBC W/PLT COUNT & AUTO [id number] 09:50:00 Test Item Value Reference Range Comments WHITE BLOOD CELL COUNT (BEAKER) (test bcnm=616) 5.7 10e3/ L 4.0-10.0 RED BLOOD CELL COUNT (BEAKER) (test fgjc=193) 2.81 10e6/ L 4.20-5.80 HEMOGLOBIN (BEAKER) (test jqdm=424) 9.1 g/dL 13.0-16.8 HEMATOCRIT (BEAKER) (test ftei=427) 26.7 % 40.0-50.0 MEAN CORPUSCULAR VOLUME (BEAKER) (test 94.8 fL 82.0-98.0 njbc=873) MEAN CORPUSCULAR HEMOGLOBIN (BEAKER) (test 32.4 pg 27.0-33.0 bpya=318) MEAN CORPUSCULAR HEMOGLOBIN CONC (BEAKER) (test 34.1 g/dL 32.0-36.0 ocbg=384) RED CELL DISTRIBUTION WIDTH (BEAKER) (test 12.6 % 10.3-14.2 cjqz=360) PLATELET COUNT (BEAKER) (test amdp=498) 120 10e3/ L 150-430 MEAN PLATELET VOLUME (BEAKER) (test mulp=583) 7.6 fL 6.5-10.5 NEUTROPHILS RELATIVE PERCENT (BEAKER) (test 72 % tqoa=927) LYMPHOCYTES RELATIVE PERCENT (BEAKER) (test 17 % rcog=442) MONOCYTES RELATIVE PERCENT (BEAKER) (test 9 % whjn=122) EOSINOPHILS RELATIVE PERCENT (BEAKER) (test 2 % crif=156) BASOPHILS RELATIVE PERCENT (BEAKER) (test 0 % hfol=784) NEUTROPHILS ABSOLUTE COUNT (BEAKER) (test 4.04 10e3/ L 1.80-8.00 zwuj=119) LYMPHOCYTES ABSOLUTE COUNT (BEAKER) (test 0.97 10e3/ L 1.48-4.50 fzzp=151) MONOCYTES ABSOLUTE COUNT (BEAKER) (test 0.53 10e3/ L 0.00-1.30 ebyt=959) EOSINOPHILS ABSOLUTE COUNT (BEAKER) (test 0.10 10e3/ L 0.00-0.50 loox=600) BASOPHILS ABSOLUTE COUNT (BEAKER) (test 0.02 10e3/ L 0.00-0.20 slpt=571) CD4/CD8 Ratio [id number] 08:04:00 Test Item Value Reference Range Comments Absolute CD 4 Sullivan (test lfkt=597598) 188 /uL 359-1519 % CD 4 Pos. Lymph. (test mmck=536387) 37.6 % 30.8-58.5 Abs. CD 8 Suppressor (test ansf=135313) 183 /uL 109-897 % CD 8 Pos. Lymph. (test tfna=701430) 36.6 % 12.0-35.5 CD4/CD8 Ratio (test vraf=880747) 1.03 0.92-3.72 WBC (test ujlw=569033) 5.0 x10E3/uL 3.4-10.8 RBC (test omxz=537977) 3.00 x10E6/uL 4.14-5.80 Hemoglobin (test smpt=315345) 9.6 g/dL 13.0-17.7 Hematocrit (test dmix=559876) 27.6 % 37.5-51.0 MCV (test kbrz=816223) 92 fL 79-97 MCH (test xbzv=058648) 32.0 pg 26.6-33.0 MCHC (test wxmz=610545) 34.8 g/dL 31.5-35.7 RDW (test tjok=646229) 15.5 % 12.3-15.4 Platelets (test axte=357873) 113 x10E3/uL 150-379 Neutrophils (test meip=532403) 84 % Not Estab. Lymphs (test zaho=552617) 9 % Not Estab. Monocytes (test rvfd=583990) 6 % Not Estab. Eos (test juox=666298) 1 % Not Estab. Basos (test xqwe=400659) 0 % Not Estab. Neutrophils (Absolute) (test fyzg=155406) 4.2 x10E3/uL 1.4-7.0 Lymphs (Absolute) (test mizx=950023) 0.5 x10E3/uL 0.7-3.1 Monocytes(Absolute) (test fqea=476243) 0.3 x10E3/uL 0.1-0.9 Eos (Absolute) (test vugi=351274) 0.0 x10E3/uL 0.0-0.4 Baso (Absolute) (test usud=035336) 0.0 x10E3/uL 0.0-0.2 Immature Granulocytes (test nkuk=712685) 0 % Not Estab. Immature Grans (Abs) (test beby=421369) 0.0 x10E3/uL 0.0-0.1 Culture, Blood [id number] 08:42:00Specimen: BloodCollected: 11/19/2017 00 :21 Status: Final Last Updated: 11/24/2017 08:42 Culture Result (Final) ( Final) No Growth After 5 DaysCulture, Blood [id number] 08:42: 00Specimen: BloodCollected: 11/18/2017 20:30 Status: Final Last Updated: 08:42 Culture Result (Final) (Final) No Growth After 5 DaysPOC Glucose, [id number] 11:51:00 Test Item Value Reference Range Comments POC Glucose (test 148 mg/dL 70-115 Notify RN or MDIf you consider code=POCGLUC) your patient critically ill, the [facility] Accu-Chek InformII metershould not be used for Glucose determinations.Draw a venous Glucose and send to the Main Lab for Analysis. CK [id number] 07:42:00 Test Item Value Reference Range Comments CK (test code=CK) na U/L 39-308 CKMB (test code=CKMB) 4.0 ng/mL 0.0-4.9 CKMB% (test code=CKMBP) 0.0 % 0.0-3.4 Ecy-[id number] 07:39:00 Test Item Value Reference Range Comments NT ProBnp (test code=PBNP) >87745 pg/mL 0-124 Troponin [id number] 07:18:00 Test Item Value Reference Range Comments Troponin T (test code=MADHAV) 0.103 ng/mL 0.000-0.090 Lactate [id number] 07:18:00 Test Item Value Reference Range Comments LDH (test code=LDH) 271 U/L 135-225 POC Glucose, [id number] 06:50:00 Test Item Value Reference Range Comments POC Glucose (test 154 mg/dL 70-115 Notify RN or MDIf you consider code=POCGLUC) your patient critically ill, the [facility] Accu-Chek InformII metershould not be used for Glucose determinations.Draw a venous Glucose and send to the Main Lab for Analysis. CK [id number] 01:08:00 Test Item Value Reference Range Comments CK (test code=CK) na U/L 39-308 CKMB (test code=CKMB) 3.6 ng/mL 0.0-4.9 CKMB% (test code=CKMBP) 0.0 % 0.0-3.4 Troponin [id number] 01:08:00 Test Item Value Reference Range Comments Troponin T (test code=MADHAV) 0.106 ng/mL 0.000-0.090 XR CHEST 1 [id number] 21:02:01CLINICAL INFORMATION: Vascular congestion.Dictation Location: 16Comparison: 11/18/2017 showed perihilar and lower lobe opacities. Technique: Portable AP 195 hoursFINDINGS: Monitoring electrodes overlie the chest wall. Cardiomegaly withincreasing central vascular interstitial prominence with bibasilaropacities and effusions. No interval bone changes.IMPRESSION: Changes could indicate worsening cardiac decompensation orfluid overload.POC Glucose, [id number] 20:15:00 Test Item Value Reference Range Comments POC Glucose (test 139 mg/dL 70-115 If you consider your patient code=POCGLUC) critically ill, the [facility] Accu-Chek InformII metershould not be used for Glucose determinations.Draw a venous Glucose and send to the Main Lab for Analysis. POC Glucose, [id number] 16:52:00 Test Item Value Reference Range Comments POC Glucose (test 123 mg/dL 70-115 If you consider your patient code=POCGLUC) critically ill, the [facility] Accu-Chek InformII metershould not be used for Glucose determinations.Draw a venous Glucose and send to the Main Lab for Analysis. POC Glucose, [id number] 12:04:00 Test Item Value Reference Range Comments POC Glucose (test 140 mg/dL 70-115 If you consider your patient code=POCGLUC) critically ill, the [facility] Accu-Chek InformII metershould not be used for Glucose determinations.Draw a venous Glucose and send to the Main Lab for Analysis. POC Glucose, [id number] 08:01:00 Test Item Value Reference Range Comments POC Glucose (test 126 mg/dL 70-115 If you consider your patient code=POCGLUC) critically ill, the [facility] Accu-Chek InformII metershould not be used for Glucose determinations.Draw a venous Glucose and send to the Main Lab for Analysis. CK [id number] 06:03:00 Test Item Value Reference Range Comments CK (test code=CK) na U/L 39-308 CKMB (test code=CKMB) 2.8 ng/mL 0.0-4.9 CKMB% (test code=CKMBP) 0.0 % 0.0-3.4 Basic Metabolic [id number] 05:51:00 Test Item Value Reference Range Comments [...] race is not provided, and the patient isAfrican-Mold[place], multiply by 1.212. If sex is not provided, and thepatient is female, multiply by 0.742. Results for patients <18 years ofage have not been validated by the MDRD study and should be interpretedwith caution.eGFR Result Interpretation:eGFR > or=60 is in the Normal RangeeGFR < 60 may mean kidney diseaseeGFR < 15 may mean kidney failureRanges recommended by the National Kidney Foundation,http://nkdep.nih .gov Magnesium, [id number] 05:51:00 Test Item Value Reference Range Comments Magnesium (test code=MG) 1.9 mg/dL 1.7-2.5 [id number] 05:51:00 Test Item Value Reference Range Comments Phosphorus (test code=PO4) 3.8 mg/dL 2.70-4.50 Ihr-[id number] 05:51:00 Test Item Value Reference Range Comments NT ProBnp (test code=PBNP) >99963 pg/mL 0-124 Troponin [id number] 05:51:00 Test Item Value Reference Range Comments Troponin T (test code=MADHAV) 0.126 ng/mL 0.000-0.090 CBC with [id number] 05:34:00 Test Item Value Reference Range Comments [...] Lymph Abs (test code=ALYMPH) 0.4 K/cumm 0.5-4.6 [place] Abs (test code=AMONO) 0.6 K/cumm 0.0-1.2 Eos Abs (test code=AEOS) 0.13 K/cumm 0.00-0.74 Baso Abs (test code=ABASO) 0.0 K/cumm 0.00-0.21 CK [id number] 18:39:00 Test Item Value Reference Range Comments CK (test code=CK) HIDE U/L 39-308 CKMB (test code=CKMB) 3.2 ng/mL 0.0-4.9 CKMB% (test code=CKMBP) HIDE % 0.0-3.4 Troponin [id number] 18:39:00 Test Item Value Reference Range Comments Troponin T (test code=MADHAV) 0.126 ng/mL 0.000-0.090 Hep B Surface [id number] 18:39:00 Test Item Value Reference Range Comments Hep Bs Ag (test code=HBSAG) Nonreactive Non-Reactive POC Glucose, [id number] 16:47:00 Test Item Value Reference Range Comments POC Glucose (test 143 mg/dL 70-115 If you consider your patient code=POCGLUC) critically ill, the [facility] Accu-Chek InformII metershould not be used for Glucose determinations.Draw a venous Glucose and send to the Main Lab for Analysis. XR CHEST 1 [id number] 08:18:18EXAM: Portable AP chest x-rayLOCATION: R16 INDICATION: CoughCOMPARISON: 11/07/2017FINDINGS:The cardiacsilhouette is stable enlargement. There are increasinginterstitial opacities, most evident in the perihilar regions and lowerlobes. There is blunting of the costophrenic angles bilaterally. Thereis no discernible pneumothorax.IMPRESSION:Increasing perihilar and bilateral lower lobe opacities compared to theprior exam dated 11/07. Findings may represent pulmonary edema orpneumonia in the appropriate clinical setting.Comprehensive Metabolic [id number] 08:05:00 Test Item Value Reference Range Comments [...] race is not provided, and the patient isAfrican-Moldovan, multiply by 1.212. If sex is not provided, and thepatient is female, multiply by 0.742. Results for patients <18 years ofage have not been validated by the MDRD study and should be interpretedwith caution.eGFR Result Interpretation:eGFR > or=60 is in the Normal RangeeGFR < 60 may mean kidney diseaseeGFR < 15 may mean kidney failureRanges recommended by the National Kidney Foundation,http://nkdep.nih .gov CK [id number] 08:05:00 Test Item Value Reference Range Comments CK (test code=CK) 149 U/L 39-308 Troponin [id number] 08:02:00 Test Item Value Reference Range Comments Troponin T (test code=MADHAV) 0.114 ng/mL 0.000-0.090 Klz-[id number] 08:02:00 Test Item Value Reference Range Comments NT ProBnp (test code=PBNP) >61616 pg/mL 0-124 CBC with [id number] 07:53:00 Test Item Value Reference Range Comments [...] Lymph Abs (test code=ALYMPH) 0.9 K/cumm 0.5-4.6 [place] Abs (test code=AMONO) 0.4 K/cumm 0.0-1.2 Eos Abs (test code=AEOS) 0.11 K/cumm 0.00-0.74 Baso Abs (test code=ABASO) 0.0 K/cumm 0.00-0.21 XR CHEST 1 [id number] 21:38:09EXAM: CHEST ONE VIEWINDICATION: CoughCOMPARISON: October 06, 2017TECHNIQUE: AP view of the chest.FINDINGS: The cardiomediastinal silhouette is unchanged. Mild congestive changesbilaterally. No pneumothorax or pleural effusion is identified. Theosseous structures are unremarkable.IMPRESSION: Diffuse congestive changes bilaterally.LOCATION: R16US DUPLX EXT VEINS COMPRS, [id number] 20:09:34AFTER HOURS SERVICE ON: 10/06/2017 8: 09 PMRIGHT Lower Extremity Venous Duplex Doppler ExaminationLocation Code O55Cecebhp: SwellingTechnique: Real-time castillo scale, Doppler spectral analysis [...] vessels.AFTER HOURS SERVICE ON: 10/06/2017 8:09 [facility] Lower Extremity Venous Duplex Doppler ExaminationLocation Code J15Pesyrzh : SwellingTechnique: Real-time castillo scale, Doppler spectral [...] of DVT in the imaged vessels.Comprehensive Metabolic [id number] 17 :40:00 Test Item Value Reference Range [...] race is not provided, and the patient isAfrican-Moldovan, multiply by 1.212. If sex is not [...] the National Kidney Foundation,http://nkdep.nih .gov CBC with [id number] 17:15:00 Test Item Value Reference Range Comments [...] Lymph Abs (test code=ALYMPH) 1.3 K/cumm 0.5-4.6 [place] Abs (test code=AMONO) 0.6 K/cumm 0.0-1.2 Eos Abs (test code=AEOS) 0.12 K/cumm 0.00-0.74 Baso Abs (test code=ABASO) 0.0 K/cumm 0.00-0.21 XR CHEST 1 [id number] 16:56:42CHEST 1 VIEW: [id number]: coughCOMPARISON: Sep 24, 2017FINDINGS:The heart is enlarged. There is engorgement of the central pulmonaryvasculature. There are patchy bibasilar areas of infiltrate oratelectasis with bilateral effusions. No pneumothorax is present. IMPRESSION: 1. Patchy areas of atelectasis or infiltrate in the lung bases withsmall bilateral effusions and vascular congestion most likely secondaryto CHF.Culture, Blood [id number] 14:58:00Specimen: BloodCollected: 2017 13:05 Status: Final Last Updated: 09/29/2017 14:58 (1) ER Bed 1 Culture Result (Final) (Final) No Growth After 5 DaysCulture, Blood [id number] 14:58:00Specimen: BloodCollected: 09/24/2017 12:50 Status: Final Last Updated: 09/29/2017 14:58 (1) ER Bed 1 Culture Result (Final) (Final) No Growth After 5 DaysPOC Glucose, [id number] 10:54:00 Test Item Value Reference Range Comments POC Glucose (test 168 mg/dL 70-115 If you consider your patient code=POCGLUC) critically ill, the [facility] Accu-Chek InformII metershould not be used for Glucose determinations.Draw a venous Glucose and send to the Main Lab for Analysis. POC Glucose, [id number] 07:16:00 Test Item Value Reference Range Comments POC Glucose (test 143 mg/dL 70-115 If you consider your patient code=POCGLUC) critically ill, the [facility] Accu-Chek InformII metershould not be used for Glucose determinations.Draw a venous Glucose and send to the Main Lab for Analysis. CBC with [id number] 07:15:00 Test Item Value Reference Range Comments [...] Lymph Abs (test code=ALYMPH) 1.3 K/cumm 0.5-4.6 [place] Abs (test code=AMONO) 0.7 K/cumm 0.0-1.2 Eos Abs (test code=AEOS) 0.07 K/cumm 0.00-0.74 Baso Abs (test code=ABASO) 0.0 K/cumm 0.00-0.21 Magnesium, [id number] 07:03:00 Test Item Value Reference Range Comments Magnesium (test code=MG) 2.0 mg/dL 1.7-2.5 Basic Metabolic [id number] 07:03:00 Test Item Value Reference Range Comments [...] race is not provided, and the patient isAfrican-Moldovan, multiply by 1.212. If sex is not [...] the National Kidney Foundation,http://nkdep.nih .gov POC Glucose, [id number] 21:40:00 Test Item Value Reference Range Comments POC Glucose (test 129 mg/dL 70-115 If you consider your patient code=POCGLUC) critically ill, the [facility] Accu-Chek InformII metershould not be used for Glucose determinations.Draw a venous Glucose and send to the Main Lab for Analysis. Hep B Surface [id number] 18:36:00 Test Item Value Reference Range Comments Hep Bs Ag (test code=HBSAG) Nonreactive Non-Reactive POC Glucose, [id number] 10:51:00 Test Item Value Reference Range Comments POC Glucose (test 216 mg/dL 70-115 If you consider your patient code=POCGLUC) critically ill, the [facility] Accu-Chek InformII metershould not be used for Glucose determinations.Draw a venous Glucose and send to the Main Lab for Analysis. POC Glucose, [id number] 07:57:00 Test Item Value Reference Range Comments POC Glucose (test 164 mg/dL 70-115 If you consider your patient code=POCGLUC) critically ill, the [facility] Accu-Chek InformII metershould not be used for Glucose determinations.Draw a venous Glucose and send to the Main Lab for Analysis. POC Glucose, [id number] 19:47:00 Test Item Value Reference Range Comments POC Glucose (test 140 mg/dL 70-115 Notify RN or MDIf you consider code=POCGLUC) your patient critically ill, the [facility] Accu-Chek InformII metershould not be used for Glucose determinations.Draw a venous Glucose and send to the Main Lab for Analysis. Troponin [id number] 19:36:00 Test Item Value Reference Range Comments Troponin T (test code=MADHAV) 0.121 ng/mL 0.000-0.090 CK [id number] 19:25:00 Test Item Value Reference Range Comments CK (test code=CK) 160 U/L 39-308 The value HIDE originally released by [employer] on 09/25/2017 19:12 waschanged to 160 by [employer] on 09/25/2017 19:24 CKMB (test code=CKMB) 3.0 ng/mL 0.0-4.9 CKMB% (test code=CKMBP) 1.9 % 0.0-3.4 The value HIDE originally released by [employer] on 09/25/2017 19:12 waschanged to 1.9 by [employer] on 09/25/2017 19:24 POC Glucose, [id number] 16:42:00 Test Item Value Reference Range Comments POC Glucose (test 123 mg/dL 70-115 If you consider your patient code=POCGLUC) critically ill, the [facility] Accu-Chek InformII metershould not be used for Glucose determinations.Draw a venous Glucose and send to the Main Lab for Analysis. POC Glucose, [id number] 12:09:00 Test Item Value Reference Range Comments POC Glucose (test 141 mg/dL 70-115 If you consider your patient code=POCGLUC) critically ill, the [facility] Accu-Chek InformII metershould not be used for Glucose determinations.Draw a venous Glucose and send to the Main Lab for Analysis. Hep B Surface [id number] 07:59:00 Test Item Value Reference Range Comments Hep Bs Ag (test code=HBSAG) Nonreactive Non-Reactive CK [id number] 07:43:00 Test Item Value Reference Range Comments CK (test code=CK) n/a U/L 39-308 CKMB (test code=CKMB) 2.4 ng/mL 0.0-4.9 CKMB% (test code=CKMBP) 0.0 % 0.0-3.4 Troponin [id number] 07:38:00 Test Item Value Reference Range Comments Troponin T (test code=MADHAV) 0.134 ng/mL 0.000-0.090 Thyroid Stimulating Hormone (TSH)2017-09-25 07:38:00 Test Item Value Reference Range Comments TSH (test code=TSH) 1.10 mIU/mL 0.270-4.200 [id number] 07:38:00 Test Item Value Reference Range Comments Phosphorus (test code=PO4) 3.4 mg/dL 2.70-4.50 Comprehensive Metabolic [id number] 07:38:00 Test Item Value Reference Range Comments [...] race is not provided, and the patient isAfrican-Moldovan, multiply by 1.212. If sex is not provided, and thepatient is female, multiply by 0.742. Results for patients <18 years ofage have not been validated by the MDRD study and should be interpretedwith caution.eGFR Result Interpretation:eGFR > or=60 is in the Normal RangeeGFR < 60 may mean kidney diseaseeGFR < 15 may mean kidney failureRanges recommended by the National Kidney Foundation,http://nkdep.nih .gov Magnesium, [id number] 07:38:00 Test Item Value Reference Range Comments Magnesium (test code=MG) 2.0 mg/dL 1.7-2.5 CK [id number] 07:31:00 Test Item Value Reference Range Comments CK (test code=CK) 159 U/L 39-308 Lipid [id number] 07:31:00 Test Item Value Reference Range Comments Cholesterol (test 118 mg/dL 0-200 code=CHOL) Triglycerides (test 170 mg/dL 9-200 code=TRIG) HDL (test code=HDL) 49 mg/dL 40-60 Chol/HDL (test 2.4 Ratio 0.0-5.0 code=CHOLPHDL) LDL, Calculated (test 35 0-130 (NOTE)RISK OF HEART code=LDLC) DISEASEPublished by [place] Heart AssociationAnalyte Optimal Boderline Increased RiskCHOL <200 200-239 >240TRIG <150 150-199 >200HDL Male: >60 <40HDL Female: >60 <50LDL <100 130-159 >160LDL NEAR OPTIMAL IS 100-129 VLDL (test code=VLDL) 34 mg/dL 5-40 LDL/HDL (test code=LDLPHDL) 1 Glycosylated [id number] 07:24:00 Test Item Value Reference Range Comments HBA1c (test code=HBA1C) 5.0 % 4.8-5.9 CBC with [id number] 07:20:00 Test Item Value Reference Range Comments [...] Lymph Abs (test code=ALYMPH) 0.8 K/cumm 0.5-4.6 [place] Abs (test code=AMONO) 0.5 K/cumm 0.0-1.2 Eos Abs (test code=AEOS) 0.10 K/cumm 0.00-0.74 Baso Abs (test code=ABASO) 0.0 K/cumm 0.00-0.21 POC Glucose, [id number] 07:03:00 Test Item Value Reference Range Comments POC Glucose (test 147 mg/dL 70-115 If you consider your patient code=POCGLUC) critically ill, the [facility] Accu-Chek InformII metershould not be used for Glucose determinations.Draw a venous Glucose and send to the Main Lab for Analysis. POC Glucose, [id number] 22:05:00 Test Item Value Reference Range Comments POC Glucose (test 134 mg/dL 70-115 If you consider your patient code=POCGLUC) critically ill, the [facility] Accu-Chek InformII metershould not be used for Glucose determinations.Draw a venous Glucose and send to the Main Lab for Analysis. Blood Gas+Lytes+Glu+Ca+Hgb+Hct+[id number] 18:31:00 Test Item Value Reference Range Comments [...] Cel[employer] code=PTTEMP) Comment (test code=COMMENT) [email or web address] Puncture Site (test code=PUNSITE) Radial. R Drawing Tech ID (test medel fi code=DRAWTECH) iPAP (test code=IPAP) 0 cmH2O Respiratory Rate (test code=RESP 0 RATE) Lactic Acid, Blood Gas (test 0.4 mmol/L code=BGLA) CT CHEST W/O [id number] 16:48:03CT CHEST W/O CONTRASTLOCATION CODE: R16 HISTORY: [...] bilateral axillary, prevascular, andparatracheal lymph nodes.Influenza B [id number] 14:36:00Specimen: NasalCollected: 09/24/2017 14:04 Status: Final Last [...] Culture of negative samples is recommended.Influenza A [id number] 14:34:00Specimen: NasalCollected: 09/24/2017 14:04 Status: Final Last [...] Culture of negative samples is recommended.Comprehensive Metabolic [id number] 13:54:00 Test Item Value Reference Range Comments [...] race is not provided, and the patient isAfrican-Moldovan, multiply by 1.212. If sex is not provided, and thepatient is female, multiply by 0.742. Results for patients <18 years ofage have not been validated by the MDRD study and should be interpretedwith caution.eGFR Result Interpretation:eGFR > or=60 is in the Normal RangeeGFR < 60 may mean kidney diseaseeGFR < 15 may mean kidney failureRanges recommended by the National Kidney Foundation,http://nkdep.nih .gov Troponin [id number] 13:54:00 Test Item Value Reference Range Comments Troponin T (test code=MADHAV) 0.124 ng/mL 0.000-0.090 [id number] 13:54:00 Test Item Value Reference Range Comments NT ProBnp (test code=PBNP) >83818 pg/mL 0-124 CK [id number] 13:54:00 Test Item Value Reference Range Comments CK (test code=CK) 222 U/L 39-308 CKMB (test code=CKMB) 3.1 ng/mL 0.0-4.9 CKMB% (test code=CKMBP) 1.4 % 0.0-3.4 CK [id number] 13:54:00 Test Item Value Reference Range Comments CK (test code=CK) 222 U/L 39-308 Partial Thromboplastin [id number] 13:43:00 Test Item Value Reference Range Comments aPTT (test code=PTT) 35.70 seconds 24.39-37.25 Prothrombin [id number] 13:43:00 Test Item Value Reference Range Comments PT (test code=PT) 11.30 seconds 9.78-13.35 INR (test code=INR) 0.99 Ratio 0.6-1.2 Lactic Acid [id number] 13:41:00 Test Item Value Reference Range Comments Lactic Acid, Bld (test code=LAC) 1.3 mmol/L 0.5-1.9 CBC with [id number] 13:32:00 Test Item Value Reference Range Comments [...] Lymph Abs (test code=ALYMPH) 1.2 K/cumm 0.5-4.6 [place] Abs (test code=AMONO) 0.6 K/cumm 0.0-1.2 Eos Abs (test code=AEOS) 0.23 K/cumm 0.00-0.74 Baso Abs (test code=ABASO) 0.0 K/cumm 0.00-0.21 XR CHEST 1 [id number] 12:50:14XR CHEST 1 VIEWLOCATION: [id number]: None.INDICATION: CoughDISCUSSION:A single portable chest radiograph was [...]
[2019-07-28] MEDS ORDERED: ACETAMINOPHEN 500 MG TAB ONE (23:35)
[2019-07-28] MEDS ORDERED: MORPHINE 4 MG/ML SYR ONE (23:35)
[2019-07-28] MEDS ORDERED: ONDANSETRON 4 MG/2 ML VIAL ONE ×2 (23:35→23:47)
--- OUTSIDE RECORDS SUMMARY | 2019-07-28 23:35 | XMS REPORT ---
:1955 Author Organization [facility] Address Unavailable , Allergies, Adverse Reactions, [...] Patient Date Date Name Instruction AMLODIPINE AMLODIPINE 77528307419 Active Mo Active BESYLATE 10 MG BESYLATE Dicks OD ORAL TABLET CALCIUM ACETATE CALCIUM ACETATE 40849253399 Active Mo Active (PHOS BINDER) (PHOS BINDER) Dicks OD 667 MG ORAL CAPSULE CRESTOR 5 MG ROSUVASTATIN 72827189319 Active Mo Active ORAL TABLET CALCIUM Dicks OD EPIVIR SOLUTION LAMIVUDINE SOLN 56647772897 Active Mo Active Dicks OD ISENTRESS RALTEGRAVIR 54705100552 Active Mo Active TABLET POTASSIUM TABS Dicks OD KALETRA TABLET LOPINAVIR-RITONAVI 82231332111 Active Mo Active R TABS Dicks OD LAMIVUDINE LAMIVUDINE TABS 18917563050 Active Mo Active TABLET Dicks OD PROAIR HFA ALBUTEROL SULFATE 56637813015 Active Mo Active AEROSOL AERS Dicks OD SOLUTION PEDRO-EAMON RX B-COMPLEX W/ C & 87058685517 Active Mo Active TABLET FOLIC ACID TABS Dicks OD VITAMIN D2 ERGOCALCIFEROL 91217048063 Active Mo Active TABLET TABS Dicks OD Diagnostic Results Date Name Value Unit Range Description Append: Eye Exam - Hematology T-helper cells (CD4) count 602 uL Append: Eye Exam - Serology HIV-1RNA, serum, by PCR, quantitative 20 {Copies}/mL Procedures Code Procedure Name Date Entry Date Standard Description CPT-72870 Dispensing Visit (UNLIVSTED OPHTHALMOLOGICAL 10:14:39 CDT SERVICE/PROCEDURE) CPT-52614 Est Patient Comprehensive Opt - 82660 15:29:32 CDT CPT-63803 New Patient Intermediate Opt - 45508 14:28:41 CDT
[2019-07-28] MEDS ORDERED: METOCLOPRAMIDE 10 MG/2mL INJ ONE (23:47)
[2019-07-29 00:23] LABS: Albumin 3.6 g/dL (3.4-5.0); Bilirubin Direct 0.5 mg/dL (0-0.2); Bilirubin Total 1.6 mg/dL (0.2-1.0); Potassium 4.8 mmol/L (3.5-5.1); Protein, Total 8.9 g/dL (6.4-8.2)
[2019-07-29 00:29] LABS: Basophils % 0.3 % (0-1.3); Hematocrit 34.8 % (39.6-49.0); Lymphocytes % 9.5 % (15.3-44.8); MPV 6.6 fL (7.6-11.3); RBC Red Blood Cell Count 3.49 M/uL (4.33-5.43)
[2019-07-29] MEDS ORDERED: ACETAMINOPHEN 325 MG TABLET PO PRN (01:50)
[2019-07-29] MEDS ORDERED: HYDRALAZINE HCL 20 MG/ML VIAL IV PRN (01:50)
[2019-07-29] MEDS ORDERED: ONDANSETRON 4 MG/2 ML VIAL IV PRN (01:50)
[2019-07-29] MEDS ORDERED: MELATONIN 5 MG TABLET PO PRN (01:50)
[2019-07-29] MEDS ORDERED: D50W 25 GM/50 ML SYRINGE/VIAL IV PRN (01:52)
[2019-07-29] MEDS ORDERED: GLUCAGON 1 MG/VIAL IM PRN (01:52)
[2019-07-29] MEDS ORDERED: MORPHINE 2 MG/ML SYR IV PRN (01:55)
[2019-07-29] MEDS ORDERED: VANCOMYCIN 1 GM in NA CHLORIDE 0.9% 250 ML IVPB ONE (01:56)
[2019-07-29] MEDS: TRAMADOL HCL 50 MG TAB PO SCH ×3 (02:00→17:31)
[2019-07-29 02:30] LABS: Protime INR 1.44
--- NOTE | 2019-07-29 02:40 | ER ---
Nurse's Notes [facility] Name: Salvatore Goldman Age: 64 yrs Sex: Male : 1955 Arrival Date: 07/28/2019 Time: 23:15 Bed 4 Private MD: Diagnosis: Left lower lobe pneumonia. Chronic renal disease Presentation: 07/28 23:05 Acuity: NARDA 2 23:05 Presenting complaint: EMS states: that they were toned for complaints of leg pain. On fc ambulance pt was complaining of "not feeling right". Positive for nausea and fever. Pt ESRD, see's Dr Washburn and has dialysis T,, and Sat. Was seen here last Saturday for leg pain. Transition of care: patient was not received from another setting of care. Onset of symptoms was July 28, 2019. Risk Assessment: Do you want to hurt yourself or someone else? Patient reports no desire to harm self or others. Initial Sepsis Screen: Does the patient meet any 2 criteria? Temp <36.0*C (96.8*F)) or > 38.3*C (100.9*F). HR > 90 bpm. Yes Does the patient have a suspected source of infection? Yes: Other: unknown If YES to both, name of provider notified: David Cardenas MD Care prior to arrival: Vitals of 157/86, heart rate of 94 and temp of 101.1 orally. 23:05 Method Of Arrival: EMS: [facility] Historical: - Allergies: 23:29 codeine sulfate (DIZZINESS); fc - Home Meds: 23:29 Isentress 400 mg Oral tab 1 tab 2 times per day [Active]; atropine 1 % Opht drop 1 drop fc once daily [Active]; tramadol 50 mg Oral tab 1 tab q8hrs prn [Active]; Daija-Kodak 0.8 mg oral tab daily [Active]; lamivudine 10 mg/mL Oral soln 2.5 mL once daily [Active]; metformin 500 mg Oral tab 1 tab daily [Active]; carvedilol 12.5 mg oral tab 1 tab 2 times per day [Active]; Vitamin [place] 54986 unit WEEKLY [Active]; pantoprazole 40 mg oral TbEC 1 tab once daily [Active]; prednisolone acetate 1 % Opht drps 1 drop 4 times per day [Active]; warfarin 10 mg oral tab 1.5 tabs on M,W, F and 1 tab on T,Thurs, Sat, Sun [Active]; Kaletra 200-50 mg Oral tab 2 tabs 2 times per day [Active]; - PMHx: 23:29 Cirrhosis; Dialysis; heart valve; Hepatitis; HIV; Diabetes - NIDDM; Hyperlipidemia; fc Karposi Sarcoma (left leg); kidney failure; L arm HD access; - PSHx: 23:29 left forearm dialysis fistula; partial lobectomy right; CABG; heart valve replacement; fc - Immunization history:: Last tetanus immunization: up to date Flu vaccine is up to date. - Social history:: Smoking status: Patient/guardian denies using tobacco, Patient/guardian denies using alcohol, street drugs. - Ebola Screening: : Patient negative for fever greater than or equal to 101.5 degrees Fahrenheit, and additional compatible Ebola Virus Disease symptoms Patient denies exposure to infectious person Patient denies travel to an Ebola-affected area in the 21 days before illness onset. Screenin:05 Abuse screen: Denies threats or abuse. Nutritional screening: No deficits noted. fc Tuberculosis screening: No symptoms or risk factors identified. Fall Risk Fall in past 12 months (25 points). Secondary diagnosis (15 points) impaired mobility, No IV (0 pts). Ambulatory Aid- Crutches/Cane/Walker (15 pts). Gait- Normal/Bed Rest/Wheelchair (0 pts) Mental Status- Overestimates/Forgets Limitations (15 pts.). Total Humphrey Fall Scale indicates High Risk Score (45 or more points). Fall prevention measures have been instituted. Side Rails Up X 2 Placed Close to Nursing Station Frequent Obs/Assessments Occuring As available patient and family educated on Fall Prevention Program and Strategies. Assessment: 23:27 General: Appears in no apparent distress. uncomfortable, Behavior is calm, cooperative, ao appropriate for age. Pain: Complains of pain in left leg Pain currently is 8 out of 10 on a pain scale. Neuro: Level of Consciousness is awake, alert, obeys commands, Oriented to person, place, time, situation, Appropriate for age Moves all extremities. Full function Speech is normal, Facial symmetry appears normal. Cardiovascular: Capillary refill < 3 seconds Patient's skin is warm and dry. Respiratory: Airway is patent Trachea midline Respiratory effort is even, unlabored, Respiratory pattern is regular, symmetrical. GI: Abdomen is flat, non-distended. : No signs and/or symptoms were reported regarding the genitourinary system. EENT: No signs and/or symptoms were reported regarding the EENT system. Derm: No signs and/or symptoms reported regarding the dermatologic system. Skin is intact. Musculoskeletal: Circulation, motion, and sensation intact. Range of motion: intact in all extremities. 23:44 Reassessment: Patient refusing to get a straight cath and states he has no urine due to ao being dialysis patient. Dr Cardenas was notified. 07/29 00:25 Reassessment: Patient appears in no apparent distress at this time. Patient and/or ao family updated on plan of care and expected duration. Pain level reassessed. Patient is alert, oriented x 3, equal unlabored respirations, skin warm/dry/pink. 01:53 Reassessment: Patient appears in no apparent distress at this time. Patient and/or ao family updated on plan of care and expected duration. Pain level reassessed. Vital Signs: 07/28 23:05 BP 174 / 85; Pulse 92; Resp 18; Temp 102.7(O); Pulse Ox 100% on R/A; Weight 70.76 kg fc (R); Height 5 ft. 7 in. (170.18 cm) (R); Pain 8/10; 07/29 00:25 BP 111 / 60; Pulse 94; Resp 18; Temp 101.4(O); Pulse Ox 95% on R/A; ao 01:49 Temp 99.2(O); oe 01:52 BP 106 / 66; Pulse 85; Resp 18; Pulse Ox 92% on R/A; ao 07/28 23:05 Body Mass Index 24.43 (70.76 kg, 170.18 cm) fc ED Course: 07/28 23:05 Arm band placed on Patient placed in an exam room, on a stretcher. fc 23:05 Patient has correct armband on for positive identification. Placed in gown. Bed in low fc position. Call light in reach. Side rails up X2. commercial sales representative on. Pulse ox on. NIBP on. 23:15 Patient arrived in ED. fc 23:21 Triage completed. fc 23:21 David Cardenas MD is Attending Physician. pkl 23:27 Niranjan Maradiaga, RN is Primary Nurse. ao 23:29 Inserted saline lock: 22 gauge in right forearm, using aseptic technique. Blood oe collected. 07/29 00:23 Notified ED physician of a critical lab result(s). creat of 6.28. fc 00:42 Notified ED physician of a critical lab result(s). d-dimer 1226. ak1 00:43 XRAY CXR (1 view) In Process Unspecified. EDMS 00:43 Tib Fib Right XRAY In Process Unspecified. EDMS 00:44 Tib Fib Left XRAY In Process Unspecified. EDMS 02:38 Lizeth Persaud MD is Hospitalizing Provider. pkl 04:07 No provider procedures requiring assistance completed. Patient admitted, IV remains in ao place. Administered Medications: 07/28 23:38 Drug: Tylenol 1000 mg Route: PO; ao 07/29 00:34 Follow up: Response: Temperature is decreased ao 07/28 23:42 Drug: morphine 4 mg Route: IVP; Site: right antecubital; ao 07/29 00:34 Follow up: Response: No adverse reaction ao 07/28 23:42 Drug: Zofran 4 mg Route: IVP; Site: right antecubital; ao 07/29 00:34 Follow up: Response: No adverse reaction ao Outcome: 02:39 Decision to Hospitalize by Provider. pkl 04:07 Admitted to Med/surg accompanied by tech, room 210, with chart, Report called to chantel Mcneill RN 04:07 Condition: stable 04:07 Instructed on the need for admit. 04:08 Patient left the ED. ao Signatures: Dispatcher [employer] EDMS David Cardenas MD MD pkJes Martin RN RN Valencia Cruz RN RN akNiranjan Bennett, Selwyn Richardson RN
--- NOTE | 2019-07-29 02:41 | EDPHYS ---
Physician Documentation [facility] Name: Salvatore Goldman Age: 64 yrs Sex: Male : 1955 Arrival Date: 07/28/2019 Time: 23:15 Bed 4 Private MD: ED Physician David Cardenas HPI: 07/29 00:48 This 64 yrs old Black Male presents to ER via EMS with complaints of "Doesn't feel pkl right", Leg Pain. 00:48 The patient reports fever, with an emergency department temperature of 102.7 degrees pkl Fahrenheit. Onset: The symptoms/episode began/occurred today. Associated signs and symptoms: Pertinent positives: nausea, pain both legs. Historical: - Allergies: 07/28 23:29 codeine sulfate (DIZZINESS); fc - Home Meds: 23:29 Isentress 400 mg Oral tab 1 tab 2 times per day [Active]; atropine 1 % Opht drop 1 drop fc once daily [Active]; tramadol 50 mg Oral tab 1 tab q8hrs prn [Active]; Daija-Kodak 0.8 mg oral tab daily [Active]; lamivudine 10 mg/mL Oral soln 2.5 mL once daily [Active]; metformin 500 mg Oral tab 1 tab daily [Active]; carvedilol 12.5 mg oral tab 1 tab 2 times per day [Active]; Vitamin D Oral 72154 unit WEEKLY [Active]; pantoprazole 40 mg oral TbEC 1 tab once daily [Active]; prednisolone acetate 1 % Opht drps 1 drop 4 times per day [Active]; warfarin 10 mg oral tab 1.5 tabs on M,W, F and 1 tab on T,Thurs, Sat, Sun [Active]; Kaletra 200-50 mg Oral tab 2 tabs 2 times per day [Active]; - PMHx: 23:29 Cirrhosis; Dialysis; heart valve; Hepatitis; HIV; Diabetes - NIDDM; Hyperlipidemia; fc Karposi Sarcoma (left leg); kidney failure; L arm HD access; - PSHx: 23:29 left forearm dialysis fistula; partial lobectomy right; CABG; heart valve replacement; fc - Immunization history:: Last tetanus immunization: up to date Flu vaccine is up to date. - Social history:: Smoking status: Patient/guardian denies using tobacco, Patient/guardian denies using alcohol, street drugs. - Ebola Screening: : Patient negative for fever greater than or equal to 101.5 degrees Fahrenheit, and additional compatible Ebola Virus Disease symptoms Patient denies exposure to infectious person Patient denies travel to an Ebola-affected area in the 21 days before illness onset. ROS: 07/29 00:48 Eyes: Negative for injury, pain, redness, and discharge, ENT: Negative for injury, pkl pain, and discharge, Neck: Negative for injury, pain, and swelling, Cardiovascular: Negative for chest pain, palpitations, and edema, Respiratory: Negative for shortness of breath, cough, wheezing, and pleuritic chest pain, Abdomen/GI: Negative for abdominal pain, nausea, vomiting, diarrhea, and constipation, Back: Negative for injury and pain, : Negative for injury, bleeding, discharge, and swelling. MS/extremity: Positive for pain, of the both legs. Skin: Negative for rash. Neuro: Negative for altered mental status. Exam: 00:48 Head/Face: Normocephalic, atraumatic. Eyes: Pupils equal round and reactive to light, pkl extra-ocular motions intact. Lids and lashes normal. Conjunctiva and sclera are non-icteric and not injected. Cornea within normal limits. Periorbital areas with no swelling, redness, or edema. ENT: Nares patent. No nasal discharge, no septal abnormalities noted. Tympanic membranes are normal and external auditory canals are clear. Oropharynx with no redness, swelling, or masses, exudates, or evidence of obstruction, uvula midline. Mucous membranes moist. Neck: Trachea midline, no thyromegaly or masses palpated, and no cervical lymphadenopathy. Supple, full range of motion without nuchal rigidity, or vertebral point tenderness. No Meningismus. Chest/axilla: Normal chest wall appearance and motion. Nontender with no deformity. No lesions are appreciated. Cardiovascular: Regular rate and rhythm with a normal S1 and S2. No gallops, murmurs, or rubs. Normal PMI, no JVD. No pulse deficits. Respiratory: Lungs have equal breath sounds bilaterally, clear to auscultation and percussion. No rales, rhonchi or wheezes noted. No increased work of breathing, no retractions or nasal flaring. Abdomen/GI: Soft, non-tender, with normal bowel sounds. No distension or tympany. No guarding or rebound. No evidence of tenderness throughout. Back: No spinal tenderness. No costovertebral tenderness. Full range of motion. Skin: Warm, dry with normal turgor. Normal color with no rashes, no lesions, and no evidence of cellulitis. MS/ Extremity: Pulses equal, no cyanosis. Neurovascular intact. Full, normal range of motion. Neuro: Awake and alert, GCS 15, oriented to person, place, time, and situation. Cranial nerves II-XII grossly intact. Motor strength 5/5 in all extremities. Sensory grossly intact. Cerebellar exam normal. Normal gait. Vital Signs: 07/28 23:05 BP 174 / 85; Pulse 92; Resp 18; Temp 102.7(O); Pulse Ox 100% on R/A; Weight 70.76 kg fc (R); Height 5 ft. 7 in. (170.18 cm) (R); Pain 8/10; 07/29 00:25 BP 111 / 60; Pulse 94; Resp 18; Temp 101.4(O); Pulse Ox 95% on R/A; ao 01:49 Temp 99.2(O); oe 01:52 BP 106 / 66; Pulse 85; Resp 18; Pulse Ox 92% on R/A; ao 07/28 23:05 Body Mass Index 24.43 (70.76 kg, 170.18 cm) fc MDM: 07/28 23:22 Patient medically screened. pkl 07/29 01:01 Data reviewed: vital signs, nurses notes, lab test result(s), EKG, radiologic studies, pkl plain films. ED course: Discussed patient with Dr. Nielsen, to do CT Chest PE protocol on account of elevated D-dimer ( 1226 ). 07/28 23:30 Order name: CBC with Diff; Complete Time: 00:46 pkl 07/28 23:30 Order name: Chem 7; Complete Time: 00:29 pkl 07/28 23:30 Order name: LFT's; Complete Time: 00:29 pkl 07/28 23:30 Order name: D-Dimer; Complete Time: 02:40 pkl 07/28 23:30 Order name: Flu; Complete Time: 00:46 pkl 07/28 23:30 Order name: Blood Culture Adult (2) pkl 07/28 23:30 Order name: Urine Culture pkl 07/28 23:30 Order name: Lactate; Complete Time: 00:46 pkl 07/28 23:45 Order name: Glucose, Ancillary Testing; Complete Time: 00:29 EDMS 07/29 01:58 Order name: CBC with Automated Diff EDMS 07/29 01:58 Order name: CBC with Automated Diff; Complete Time: 03:34 EDMS 07/29 01:58 Order name: CBC with Automated Diff EDMS 07/29 01:58 Order name: CBC with Automated Diff EDMS 07/29 01:58 Order name: Comprehensive Metabolic Panel EDMS 07/28 23:30 Order name: XRAY CXR (1 view) pk 07/28 23:30 Order name: Tib Fib Right XRAY pk 07/28 23:30 Order name: Tib Fib Left XRAY pk 07/29 01:05 Order name: CT Chest For PE Angio pkl 07/29 01:57 Order name: CONS Pharmacy Consult EDAZ 07/29 01:57 Order name: CONS Pharmacy Consult EDAZ 07/29 01:58 Order name: Comprehensive Metabolic Panel EDA[facility] 07/29 01:58 Order name: Protime (+INR) [facility] 07/29 01:58 Order name: Protime (+INR) [facility] 07/29 01:58 Order name: Protime (+INR) [facility] 07/29 01:58 Order name: Protime (+INR) [facility] 07/29 02:34 Order name: Protime (+INR); Complete Time: 02:40 EDAZ 07/29 03:29 Order name: Lactate Sepsis 2 HR Follow-up; Complete Time: 03:34 EDA[facility] 07/28 23:30 Order name: Saline Lock; Complete Time: 23:32 pk 07/29 01:57 Order name: CONS Physician Consult EDAZ 07/29 01:57 Order name: Renal EDMS Administered Medications: 07/28 23:38 Drug: Tylenol 1000 mg Route: PO; ao 07/29 00:34 Follow up: Response: Temperature is decreased ao 07/28 23:42 Drug: morphine 4 mg Route: IVP; Site: right antecubital; ao 07/29 00:34 Follow up: Response: No adverse reaction ao 07/28 23:42 Drug: Zofran 4 mg Route: IVP; Site: right antecubital; ao 07/29 00:34 Follow up: Response: No adverse reaction ao Disposition: 07/29/19 02:39 Hospitalization ordered by Lizeth Persaud for Inpatient Admission. Preliminary diagnosis is Left lower lobe pneumonia. Chronic renal disease. - Bed requested for Telemetry/MedSurg (Inpatient). - Status is Inpatient Admission. ao - Condition is Stable. - Problem is new. - Symptoms are unchanged. UTI on Admission? No Signatures: Dispatcher [employer] EDMS Marielle Sky RN RN mw Lam, Pin, MD MD pkJes Martin RN RN Niranjan Maradiaga RN LAURYN ao Corrections: (The following items were deleted from the chart) 03: 02:39 Hospitalization Ordered by Lizeth Persaud MD for Inpatient Admission. Preliminary diagnosis is Left lower lobe pneumonia. Chronic renal disease. Bed requested for Telemetry/MedSurg (Inpatient). Status is Inpatient Admission. Condition is Stable. Problem is new. Symptoms are unchanged. UTI on Admission? No. pkl 04:08 03:27 07/29/2019 02:39 Hospitalization Ordered by Lizeth Persaud MD for Inpatient ao Admission. Preliminary diagnosis is Left lower lobe pneumonia. Chronic renal disease. Bed requested for Telemetry/MedSurg (Inpatient). Status is Inpatient Admission. Condition is Stable. Problem is new. Symptoms are unchanged. UTI on Admission? No. mw
[2019-07-29] MEDS ORDERED: CEFTRIAXONE 1 GM/NS 50 ML 1 GM/50 ML BAG IV SCH (03:00)
[2019-07-29 03:13] LABS: Absolute Lymphocytes (CBC) 1.4 K/uL (0.7-4.9); Basophils % 0.3 % (0-1.3); Hematocrit 33.5 % (39.6-49.0); Lymphocytes % 12.1 % (15.3-44.8); MPV 6.7 fL (7.6-11.3); RBC Red Blood Cell Count 3.38 M/uL (4.33-5.43)
[2019-07-29 04:21] VITALS: BMI 24.7
[2019-07-29] MEDS ORDERED: CEFTRIAXONE 1000 MG/VIAL ONE (04:56)
[2019-07-29] MEDS ORDERED: NA CHLORIDE 0.9% 50 ML ONE (04:56)
[2019-07-29] MEDS ORDERED: VANCOMYCIN 1 GM/VIAL ONE (04:59)
[2019-07-29] MEDS ORDERED: NA CHLORIDE 0.9% 250 ML ONE (05:00)
--- NOTE | 2019-07-29 05:48 | P.PN ---
Date of Service: 07/29/19
--- NOTE | 2019-07-29 06:15 | HP ---
Date of Admission: 07/29/2019 Presenting Complaint: Nausea, vomiting, and fever. History Of Present Illness: Mr. Salvatore Goldman is a 64-year-old male with past medic al history of hypertension; HIV infection; hepatitis C; ESRD, on HD TTS, since the last 3 years. His last dialysis was yesterday. Patient post dialysis developed nausea and vomiting associated with so me generalized body weakness and aches. He also complained of bilateral leg pains. Patient denies a ny shortness of breath. He did not have any chest pain. He admitted to having chills. On presentat ion in the ER, he was noted with a fever of 102.7. Patient states he got exposure to cold and felt h is symptoms started after the exposure to the rain. He denies any sick contact at home. He denies a ny cough or sputum. He denies any recent travel. Past Medical History: Significant for; 1.Hypertension. 2.Diabetes mellitus, diet controlled. 3.ESRD, on HD at the [facility] Dialysis TTS schedule. 4.History of pleural fistula, status post lung decortication. 5.History of idiopathic thrombocytopenic purpura. 6.HIV, on antiretroviral medication. He states his last viral load was undetectable 3 weeks ago. 7.History of valvular heart replacement. 8.History of chronic anticoagulation, on Coumadin. 9.History of chronic hepatitis C. Past Surgical History: 1.Valvular heart replacement, possible aortic valve. 2.History of right lung decortication. Allergies: CODEINE. Home Medications: See medication list. Med rec pending. Social History: Patient is a lifelong nonsmoker. No history of alcohol or illicit drug use. Family History: Significant for CVA. Review of Systems: All systems reviewed x10 were negative except as mentioned above. Physical Examination: Vital Signs: Current blood pressure 111/61, pulse of 79, respiratory rate of 18, temperature of 102. 7, O2 saturation of 96% on room air. General: Average built, middle-aged male, calm, not in any distress. HEENT: Head is atraumatic, normocephalic. Pupils equal and reactive to light. Anicteric. Neck: No JVD. No carotid bruits. Respiratory: Good air entry bilaterally. No crepitations. Small lap scars noted on arterial chest wall, but no chest wall tenderness. Cardiovascular: S1, S2. Rate and rhythm regular. Non-tachycardic. No murmur. GI: Abdomen full, soft. Bowel sounds positive. No suprapubic fullness. Extremities: No pedal edema. No calf tenderness. Left forearm with an AV graft. Good bruit and ch ill noted. Neurologic: Patient is alert and oriented. Cranial nerves 2 through 12 grossly intact. No neurolog ical focal motor deficits. Imaging: Chest x-ray shows mild pulmonary congestive changes with no overt infiltrates of effusions. Laboratory Data: WBC of 10, hemoglobin 11.9, platelet 149, neutrophils 79%. No bands. D-dimer of 1 226. Sodium 132, potassium 4.8, bicarb 29, creatinine 6.2, lactic acid of 2.6, total bili of 1.6, al kaline phosphatase 123, albumin 3.6. Impression: 1.Fever of unknown origin, rule possible bacteremia given arteriovenous graft in situ. 2.Hypertension, controlled. 3.End-stage renal disease, on hemodialysis. 4.History of human immunodeficiency virus, on medication. 5.History of valve replacement, on chronic anticoagulation. Plan: We will admit patient in to observation. We will manage patient for the following; 1.Fever, still possible due to viral upper respiratory tract infection versus bacteremia. We will o btain blood culture x2. We will start patient on empiric vancomycin and Rocephin. We will obtain a CT of the chest given elevated D-dimer to rule out any pulmonary infection or lung abscess. 2.Hypertension, controlled. Continue home regimen. 3.Chronic anticoagulation. Continue home dose of Coumadin. Pharmacy to help with dosing. 4.Diabetes mellitus. We will do Accu-Cheks and insulin sliding scale. 5.ESRD, continue HD TTS. No need for urgent HD, postop contrast administration since patient is jordi elliot. 6.DVT prophylaxis, already on Coumadin. 7.Advanced directive. Patient is a full code. Total time spent review of record, discussion with patient and ED physician, and arranging for CAT sc an, greater than 60 minutes. EO/MODL Voice ID: [id number]
[2019-07-29] MEDS: INSULIN -REGULAR HUMAN 50 UNIT/0.5 ML ML SQ SCH ×4 (07:30→21:00)
--- NOTE | 2019-07-29 07:46 | RAD REPORT ---
EXAM DESCRIPTION: RAD - Tib Fib Right - 07/29/2019 12:44 am CLINICAL HISTORY: Right leg pain FINDINGS: No fracture is seen. The bones are osteoporotic 6.7 centimeter mass is present within posteromedial soft tissues of the upper aspect of the tib/fib
--- NOTE | 2019-07-29 07:47 | RAD REPORT ---
EXAM DESCRIPTION: RADTib Clem Left07/29/2019 12:43 am CLINICAL HISTORY: Left leg pain FINDINGS: No fracture is seen. Bones are osteoporotic. Vascular calcifications are seen. Edema is p resent within the subcutaneous tissues
--- NOTE | 2019-07-29 08:58 | RAD REPORT ---
EXAM DESCRIPTION: Segun Single View07/29/2019 12:44 am CLINICAL HISTORY: Fever COMPARISON: March 2019 FINDINGS: A small right pleural effusion is present with mild right basilar atelectasis The left lung appears clear The heart is moderately enlarged Postsurgical changes involve the chest.
[2019-07-29] MEDS: RITONAVIR PO SCH (09:00)
[2019-07-29] MEDS: LAMIVUDINE 10 MG/ML PO SCH ×2 (09:00)
[2019-07-29] MEDS: RALTEGRAVIR POTASSIUM 400 MG TABLET PO SCH (09:00)
[2019-07-29] MEDS ORDERED: CA ACETATE 667 MG CAP PO SCH (09:00)
[2019-07-29] MEDS: LOPINAVIR PO SCH (09:00)
[2019-07-29] MEDS ORDERED: VANCOMYCIN 500 MG in NA CHLORIDE 0.9% 100 ML IVPB SCH (09:15)
[2019-07-29] MEDS: carvediloL 12.5 MG TAB PO SCH ×2 (09:19→21:46)
[2019-07-29] MEDS: MULTIVITAMINS,THERAPEUT 1 TAB PO SCH (09:19)
[2019-07-29] MEDS: ASPIRIN 81 MG CHEWABLE TABLET PO SCH (09:19)
[2019-07-29] MEDS: CA ACETATE 667 MG CAP PO SCH ×2 (09:20→16:57)
--- NOTE | 2019-07-29 10:25 | RAD REPORT ---
EXAM DESCRIPTION: CT - Chest For Pe Angio - 07/29/2019 6:58 am CLINICAL HISTORY: Elevated D-dimer, pain in both legs COMPARISON: None. TECHNIQUE: CT CHEST ANGIOGRAPHY WITH IV CONTRAST on 07/29/2019 1:05 AM COPY EDITOR. MIPS reconstructions wer e generated. This exam was performed according to our departmental dose-optimization program, which includes autom ated exposure control, adjustment of the mA and/or kV according to patient size and/or use of iterati ve reconstruction technique. MIP images were generated. FINDINGS: Thoracic aorta is normal in course and caliber without aneurysm or dissection. Pulmonary a rteries are adequately opacified without acute or chronic filling defects. The heart is normal in size. There is no pericardial effusion. Intrathoracic lymph nodes are not enla rged. There is no pleural effusion, pleural thickening or pneumothorax. Central airways are patent. There i s developing rounded atelectasis in the right lower lobe. There is patchy left lower lobe airspace di sease posteriorly. There are no acute abnormalities within the limited images of the upper abdomen. There are no acute osseous findings. No suspicious bony lesions. IMPRESSION: Cardiomegaly with no aortic dissection or aneurysm. No pulmonary embolus. Left lower lobe pneumonia Electronically signed by: Qasim Parr MD 07/29/2019 2:13 AM COPY EDITOR Due to temporary technical issues with the PACS/Fluency reporting system, reports are being signed by the in house radiologist as a courtesy to ensure prompt reporting. The interpreting radiologist is f ully responsible for the content of the report.
--- NOTE | 2019-07-29 12:05 | EKG ---
Test Date: 2019-07-28 Test Time: 23:15:10 Accounts Receivable Processor: MICHELLE MEASUREMENT RESULTS: Intervals: Rate: 95 SC: 214 QRSD: 80 QT: 348 QTc: 437 Patterson: P: 41 SC: 214 QRS: 71 T: 76 INTERPRETIVE STATEMENTS: Sinus rhythm with 1st degree AV block Otherwise normal ECG Compared to ECG 03/08/2019 21:59:50 First degree AV block now present Electronically Signed On 07-29-19 12:03:31 MARBLE MACHINE OPERATOR by Rafael Bedolla
--- NOTE | 2019-07-29 15:54 | CON ---
Date of Consultation: 07/29/2019 Reason For Consult: ESRD, on dialysis. History Of Present Illness: The patient is a 64-year-old male with a complex past medical history in cluding history of ESRD, on dialysis; hypertension; hepatitis C; who presented to [facility] after dialysis yesterday with nausea and vomiting associated with generalized weakness and muscle ac hes. He was found to have fever with a T-max of 102.7. He has been admitted for observation and for further workup of his fever. He has had a CT scan done of his chest for further evaluation for elev ated D-dimer and was found to have a left lower lobe pneumonia as well. The patient states that he f eels much better and denies any shortness of breath or dry cough or chest pain at this time. Past Medical History: Significant for history of hypertension; type 2 diabetes; ESRD; history of ple ural fistula status post lung decortication, history of TTP; HIV, on HAART medication; history of elizabeth vular heart replacement, chronic anticoagulation, and hepatitis C. Past Surgical History: Significant for history of valvular heart disease, possibly aortic valve repl acement, history of light lung decortication. Allergies: CODEINE. Home Medications: Reviewed. Social History: No history of smoking, alcohol, or illicit drug use at this time. Family History: Noncontributory. Review of Systems: Positive for weakness, lethargy. All other review of systems are negative. Physical Examination: Vital Signs: At this time are showing temperature of 97.6, pulse rate of 76, respiratory rate of 18, blood pressure 119/67. General: He appears in no acute distress. Lungs: Clear to auscultation. HEART: Auscultation of the heart reveals regular rate and rhythm. Abdomen: Soft and nontender. Ex tremities: Left upper extremity AV fistula with good bruit and thrill in extremities. Lower extremi ties do not show any evidence of edema. Laboratory Data: Showing electrolyte panel consistent with ESRD. Mild elevation in AST. CBC showin g WBC count of 11,000; hemoglobin of 11.3; hematocrit 33.3, and platelet count of 139. Current Medications: Have been reviewed in detail and blood cultures are currently pending. He lakshmi ins on antibiotics with vancomycin and Rocephin. Impression: 1.End-stage renal disease, on dialysis. 2.Fever, possibly secondary to left lower lobe pneumonia. The patient is getting vancomycin and Yordy ephin. We will continue the same and plan for Andujar to be dosed post HD. 3.Hypertension, currently stable. 4.Anemia secondary to chronic kidney disease. Currently with stable hemoglobin. We will continue t o monitor and start Epogen when it starts to drop below 10. 5.Chronic anticoagulation, on Coumadin. 6.Type 2 diabetes. Continue insulin sliding scale. Plan: Patient is overall doing okay. No acute need for dialysis at this time. Volume status and el ectrolyte status seems to be stable. We will plan for dialysis on Saturday per his regular outpatient schedule, and we will follow up closely. SHERI/JANET Voice ID: [id number] Report ID: [id number]
[2019-07-29] MEDS ORDERED: WARFARIN SODIUM 5 MG TAB PO SCH (17:00)
[2019-07-29] MEDS: KALETRA PO SCH (21:47)
[2019-07-29] MEDS: ISENTRESS 400 MG PO SCH (21:48)
[2019-07-30] MEDS: TRAMADOL HCL 50 MG TAB PO SCH ×2 (00:17→10:00)
[2019-07-30 05:45] LABS: Protime INR 1.29
[2019-07-30 05:48] LABS: Absolute Lymphocytes (CBC) 0.9 K/uL (0.7-4.9); Basophils % 0.6 % (0-1.3); Hematocrit 31.1 % (39.6-49.0); Lymphocytes % 16.5 % (15.3-44.8); RBC Red Blood Cell Count 3.18 M/uL (4.33-5.43)
[2019-07-30] MEDS ORDERED: CEFTRIAXONE/SWI 1gm 1 GM/10 ML SYR IV SCH (06:00)
[2019-07-30 07:23] LABS: Albumin 3.2 g/dL (3.4-5.0); Bilirubin Total 0.7 mg/dL (0.2-1.0); Potassium 5.1 mmol/L (3.5-5.1); Protein, Total 7.9 g/dL (6.4-8.2)
[2019-07-30] MEDS: INSULIN -REGULAR HUMAN 50 UNIT/0.5 ML ML SQ SCH (07:30)
[2019-07-30] MEDS: CA ACETATE 667 MG CAP PO SCH (08:00)
[2019-07-30] MEDS: KALETRA PO SCH (08:01)
[2019-07-30] MEDS: carvediloL 12.5 MG TAB PO SCH (08:01)
[2019-07-30] MEDS: MULTIVITAMINS,THERAPEUT 1 TAB PO SCH (08:01)
[2019-07-30] MEDS: ASPIRIN 81 MG CHEWABLE TABLET PO SCH (08:01)
[2019-07-30] MEDS: LAMIVUDINE 10 MG/ML PO SCH (08:02)
[2019-07-30] MEDS: ISENTRESS 400 MG PO SCH (08:03)
[2019-07-30 08:12] VITALS: BP 119/69
[2019-07-30 08:15] VITALS: TEMP 97.2
--- NOTE | 2019-07-30 10:03 | RAD REPORT ---
EXAM DESCRIPTION: Segun Lmaar And Mike (2 Views)07/30/2019 9:53 am CLINICAL HISTORY: Chest pain COMPARISON: July 29 FINDINGS: Small right pleural effusion/ thickening with right basilar atelectasis paragraphs Mild left lower lobe opacity seen on the CT scan have mostly resolved The heart is mildly to moderately enlarged. Postsurgical changes involve the chest. IMPRESSION: Mild left lower lobe pneumonia has partially resolved
[2019-07-30 10:08] VITALS: O2SAT 95
--- NOTE | 2019-07-30 10:15 | P.PN ---
Subjective Date of Service: 07/30/19 Chief Complaint: bronchitis Subjective: Doing well (looks well. labs/meds and vitals reviewed. clinically looks well. has no shortness of breath. talking comfortably in full sentences. he is currently afebrile and tolerating po intake. would like to go home to have thanksgiving with family. counseled to come to er for any change in condition and to keep appointment for dialysis outpatient as per his schedule. fall precautions and diet counseled. patient is being discharged with antibiotics to take at home. advised to comply with medication schedule.) Physical Examination - Vital Signs Temperature: 97.2 F Blood Pressure: 119/69 Pulse: 74 Respirations: 17 Pulse Ox (%): 95 - Studies Microbiology Data (last 24 hrs): 07/29/19 01:55 Blood - Blood Anaerobic Blood Culture - Final
--- NOTE | 2019-07-30 10:19 | P.DS ---
Admission Date: 07/29/19 Discharge Date: 07/30/19 Primary Care Provider: Nephrology-Dr. Teran/Wu Disposition: ROUTINE DISCHARGE Discharge Condition: GOOD Reason for Admission: fever Consultations: Nephrology-Dr. Teran Procedures: CT scan: FINDINGS: Thoracic aorta is normal in course and caliber without aneurysm or dissection. Pulmonary arteries are adequately opacified without acute or chronic filling defects. The heart is normal in size. There is no pericardial effusion. Intrathoracic lymph nodes are not enlarged. There is no pleural effusion, pleural thickening or pneumothorax. Central airways are patent. There is developing rounded atelectasis in the right lower lobe. There is patchy left lower lobe airspace disease posteriorly. There are no acute abnormalities within the limited images of the upper abdomen. There are no acute osseous findings. No suspicious bony lesions. IMPRESSION: Cardiomegaly with no aortic dissection or aneurysm. No pulmonary embolus. Left lower lobe pneumonia Follow up CXR: FINDINGS: Small right pleural effusion/ thickening with right basilar atelectasis paragraphs Mild left lower lobe opacity seen on the CT scan have mostly resolved The heart is mildly to moderately enlarged. Postsurgical changes involve the chest. IMPRESSION: Mild left lower lobe pneumonia has partially resolved Medical Problem List: Fever secondary to left lower lobe pneumonia Hypertension End-stage renal disease on hemodialysis History of HIV on medication History of valve replacement on chronic anti coagulation therapy Brief History of Present Illness: 64 yo AAM presented to the ER with fever, chills. Patient reported he was exposed to a cold and felt symptoms. This occurred after rain. CT scan showed left lower lobe pneumonia. Patient was admitted for treatment. Hospital Course: Patient presented with fever. This occurred after exposure to a cold. Patient found to have left lower lobe pneumonia. Patient was treated during the hospital. Patient responded well to IV antibiotic therapy. At discharge he will continue with Augmentin 500 mg once daily for 7 days. Recommend to recheck chest x-ray in with 4-6 weeks to monitor resolution. Patient with hypertension. At discharge she will continue with carvedilol 12.5 mg daily. Patient with history of HIV. Patient will continue with his HIV medications. Recommend follow up with his HIV specialist in [place]. Patient with end-stage renal disease on hemodialysis. Patient gets dialysis every Saturday, Saturday and Saturday. Case discussed with nephrology. Patient will follow up with dialysis tomorrow. Vital Signs/Physical Exam: Temp Pulse Resp BP Pulse Ox 97.2 F 74 17 119/69 95 07/30/19 08:00 07/30/19 08:01 07/30/19 08:00 07/30/19 08:01 07/30/19 08:00 General: Alert, In no apparent distress, Oriented x3, Cooperative HEENT: Atraumatic Neck: Supple Respiratory: Clear to auscultation bilaterally, Normal air movement Cardiovascular: Normal pulses, Regular rate/rhythm Gastrointestinal: Normal bowel sounds, Soft and benign, Non-distended Musculoskeletal: No erythema, No tenderness, No warmth Integumentary: No erythema, No warmth, No cyanosis Neurological: Normal speech, Normal strength at 5/5 x4 extr, Normal tone, Normal affect Laboratory Data at Discharge: WBC 5.8 K/uL (4.3-10.9) D 07/30/19 05:19 Hgb 11.0 g/dL (13.6-17.9) L 07/30/19 05:19 Hct 31.1 % (39.6-49.0) L 07/30/19 05:19 Plt Count 139 K/uL (152-406) L 07/30/19 05:19 PT 15.1 SECONDS (9.5-12.5) H 07/30/19 05:19 INR 1.29 07/30/19 05:19 Sodium 131 mmol/L (136-145) L 07/30/19 06:35 Potassium 5.1 mmol/L (3.5-5.1) 07/30/19 06:35 BUN 68 mg/dL (7-18) H D 07/30/19 06:35 Creatinine 8.75 mg/dL (0.55-1.3) H* D 07/30/19 06:35 Glucose 83 mg/dL (74-106) 07/30/19 06:35 Total Bilirubin 0.7 mg/dL (0.2-1.0) 07/30/19 06:35 AST 36 U/L (15-37) 07/30/19 06:35 ALT 37 U/L (12-78) 07/30/19 06:35 Alkaline Phosphatase 87 U/L (45-117) 07/30/19 06:35 Home Medications: Lamivudine [Epivir] 2.5 ml PO BID 02/18/18 Lopinavir/Ritonavir [Kaletra 200-50 MG Tablet*] 2 tab PO BID 05/17/18 Raltegravir Potassium [Isentress*] 400 mg PO BID 05/17/18 Warfarin Sodium [Coumadin*] 10 mg PO DAILY 5 PM 05/17/18 Aspirin Chewable [Aspirin Chewable*] 81 mg PO DAILY 05/18/18 Folic Acid/Vit B Complex and C [Daija-Kodak Tablet] 1 tab PO DAILY 05/18/18 Calcium Acetate 1 cap PO BID 03/09/19 carvediloL [Carvedilol] 1 tab PO BID 03/09/19 Amoxicillin/Potassium Clav [Augmentin 500-125 Tablet] 1 each PO DAILY #7 tablet 07/30/19 New Medications: Amoxicillin/Potassium Clav [Augmentin 500-125 Tablet] 1 each PO DAILY #7 tablet Patient Discharge Instructions: 1. Follow up with his PCP in one week. 2. Patient presented with fever. This occurred after exposure to a cold. Patient found to have left lower lobe pneumonia. Patient was treated during the hospital. Patient responded well to IV antibiotic therapy. At discharge he will continue with Augmentin 500 mg once daily for 7 days. Recommend to recheck chest x-ray in with 4-6 weeks to monitor resolution. 3. Patient with hypertension. At discharge she will continue with carvedilol 12.5 mg daily. 4. Patient with history of HIV. Patient will continue with his HIV medications. Recommend follow up with his HIV specialist in [place]. 5. Patient with end-stage renal disease on hemodialysis. Patient gets dialysis every Saturday, Saturday and Saturday. Case discussed with nephrology. Patient will follow up with dialysis tomorrow. Diet: AHA Activity: Ad pedro Time spent managing pt's care (in minutes): 55
== END 2019-07-30 11:30 | disposition home or self-care (01) | DRG 974 ==
LOC: ER 23:06 → ERHOLD 07-29 01:58 → 2ND 07-29 03:54
PROVIDERS: ADMIT Internal Medicine; ATTEND Family Medicine
DX: J18.9 Pneumonia, unspecified organism (principal); N18.6 End stage renal disease; B20 Human immunodeficiency virus [HIV] disease; I12.0 Hypertensive chronic kidney disease with stage 5 chronic kidney disease or end stage renal disease; E11.22 Type 2 diabetes mellitus with diabetic chronic kidney disease; B19.20 Unspecified viral hepatitis C without hepatic coma; D63.1 Anemia in chronic kidney disease; Z79.01 Long term (current) use of anticoagulants; Z99.2 Dependence on renal dialysis; Z95.2 Presence of prosthetic heart valve
CPT/HCPCS: 36415; 71045; 71046; 71275; 80048; 80053; 80076; 82947; 83605; 84145; 85025; 85379; 85610; 87040; 87804; 93005; 96374; 96375; 99285; J0696; J2405; J2765; J3490; J7030; Q9967

== ENCOUNTER 2019-09-11 15:05 | Emergency (ER) | payer OTHER ==
--- OUTSIDE RECORDS SUMMARY | 2019-09-11 15:31 | XMS REPORT ---
:1955 [facility] [address] [place] [address] Care Team Providers Name Role Phone UNKNOWN, REFFERING Primary Care Provider Unavailable ROMEO CAMPBELL Unavailable Unavailable SD SOLANO Unavailable Unavailable BRIGHT BREWER Unavailable Unavailable ANNABELLE MARCELINO Unavailable Unavailable AXEL GERBER Unavailable Unavailable SANJUANA TURPIN Unavailable Unavailable RHEA ANTONIO Unavailable Unavailable MAYLIN HOLLOWAY Unavailable Unavailable ELIANA, NEEL Unavailable Unavailable SHILA JAFFE MD, M.D. Unavailable Unavailable Problems This patient has no known problems. Allergies, Adverse Reactions, Alerts This patient has no known allergies or adverse reactions. Medications This patient has no known medications. Encounters Start End Encounter Admission Attending Care Care Encounter Date/Time Date/Time Type Type Clinicians Facility Department ID 2017-11-18 2017-11-20 [facility] [id number] 13:43:00 13:54:00 MAYLIN 2017-11-07 2017-11-07 Emergency E [facility] [id number] 20:22:00 20:22:00 2017-10-06 2017-10-06 Emergency [facility] [id number] 14:25:00 14:25:00 NEEL Results Test Description Test Time Test Comments Text Results Atomic Results Result Comments AFB CULTURE + SMEAR 2019-02-02 07:33:00 Test Item Value Reference Range Comments CULTURE (BEAKER) (test lfur=8510) No acid-fast bacilli isolated in 42 days AFB SMEAR (BEAKER) (test hpki=155) No acid fast bacilli seen FUNGUS CULTURE + [id number] 17:26:00 Test Item Value Reference Range Comments CULTURE (BEAKER) (test No fungus isolated in 28 days tjje=1208) FUNGUS SMEAR (BEAKER) (test No fungi seen yvcx=7895) POCT-GLUCOSE [id number] 13:35:00 Test Item Value Reference Range Comments POC-GLUCOSE METER (BEAKER) 116 mg/dL 70-110 TESTED AT [facility] [address] [facility] (test wkkt=4490) [facility] [address] POCT-GLUCOSE [id number] 08:54:00 Test Item Value Reference Range Comments POC-GLUCOSE METER (BEAKER) 99 mg/dL 70-110 TESTED AT [address] (test jyxk=2818) [facility] [address] [id number] 06:34:00 Test Item Value Reference Range Comments PARTIAL THROMBOPLASTIN TIME (BEAKER) (test 46.7 seconds 22.5-36.0 qpem=401) While on warfarin.PROTHROMBIN TIME/[id number] 06:33:00 Test Item Value Reference Range Comments PROTIME (BEAKER) (test azab=799) 26.5 seconds 11.7-14.7 INR (BEAKER) (test sols=610) 2.6 <=5.9 RECOMMENDED COUMADIN/WARFARIN INR THERAPY RANGESSTANDARD DOSE: 2.0 - 3.0 Includes: PROPHYLAXIS forvenous thrombosis, systemic embolization; TREATMENT for venous thrombosis and/or pulmonary embolus.HIGH RISK: Target INR is 2.5-3.5 for patients with mechanical heart valves.While on warfarin.BASIC METABOLIC [id number] 06:30:00 Test Item Value Reference Range Comments SODIUM (BEAKER) (test 132 meq/L 136-145 tfzj=061) POTASSIUM (BEAKER) (test 4.7 meq/L 3.5-5.1 yvac=794) CHLORIDE (BEAKER) (test 96 meq/L 98-107 oejp=630) CO2 (BEAKER) (test 27 meq/L 22-29 mjip=669) BLOOD UREA NITROGEN 59 mg/dL 7-21 (BEAKER) (test fttt=635) CREATININE (BEAKER) (test 6.00 mg/dL 0.57-1.25 zlfe=275) GLUCOSE RANDOM (BEAKER) 118 mg/dL 70-105 (test xize=634) CALCIUM (BEAKER) (test 9.5 mg/dL 8.4-10.2 cdaj=468) EGFR (BEAKER) (test 12 mL/min/1.73 sq m ESTIMATED GFR IS NOT wrhx=9554) ACCURATE CREATININE CLEARANCE IN PREDICTING GLOMERULAR FILTRATION RATE. ESTIMATED GFR IS NOT APPLICABLE FOR DIALYSIS PATIENTS. CBC (HEMOGRAM ONLY)2019-01-06 06:09:00 Test Item Value Reference Range Comments WHITE BLOOD CELL COUNT (BEAKER) (test xqwp=780) 9.4 K/ L 3.5-10.5 RED BLOOD CELL COUNT (BEAKER) (test zunc=444) 2.60 M/ L 4.63-6.08 HEMOGLOBIN (BEAKER) (test cpkv=919) 8.5 GM/DL 13.7-17.5 HEMATOCRIT (BEAKER) (test jvfq=330) 27.6 % 40.1-51.0 MEAN CORPUSCULAR VOLUME (BEAKER) (test rmvl=019) 106.2 fL 79.0-92.2 MEAN CORPUSCULAR HEMOGLOBIN (BEAKER) (test 32.7 pg 25.7-32.2 jdim=900) MEAN CORPUSCULAR HEMOGLOBIN CONC (BEAKER) (test 30.8 GM/DL 32.3-36.5 wtbc=756) RED CELL DISTRIBUTION WIDTH (BEAKER) (test 17.9 % 11.6-14.4 gotc=647) PLATELET COUNT (BEAKER) (test uawp=117) 148 K/CU MM 150-450 MEAN PLATELET VOLUME (BEAKER) (test pnkg=162) 9.2 fL 9.4-12.4 NUCLEATED RED BLOOD CELLS (BEAKER) (test 1 /100 WBC 0-0 wqih=691) POCT-GLUCOSE [id number] 21:38:00 Test Item Value Reference Range Comments POC-GLUCOSE METER (BEAKER) 192 mg/dL 70-110 TESTED AT [address] (test tjrp=5600) [facility] [address] POCT-GLUCOSE [id number] 13:01:00 Test Item Value Reference Range Comments POC-GLUCOSE METER (BEAKER) 200 mg/dL 70-110 TESTED AT [address] (test gvyj=3512) [facility] [address] POCT-GLUCOSE [id number] 08:00:00 Test Item Value Reference Range Comments POC-GLUCOSE METER (BEAKER) 123 mg/dL 70-110 TESTED AT [address] (test lmbp=5088) [place] [address] [id number] 06:40:00 Test Item Value Reference Range Comments PARTIAL THROMBOPLASTIN TIME (BEAKER) (test 83.1 seconds 22.5-36.0 czfl=448) [id number] 05:54:00 Test Item Value Reference Range Comments PARTIAL THROMBOPLASTIN TIME (BEAKER) (test > seconds 22.5-36.0 ybor=581) PROTHROMBIN [id number] 05:30:00 Test Item Value Reference Range Comments PROTIME (BEAKER) (test nuru=447) 24.1 seconds 11.7-14.7 INR (BEAKER) (test njgq=424) 2.3 <=5.9 RECOMMENDED COUMADIN/WARFARIN INR THERAPY RANGESSTANDARD DOSE: 2.0 - 3.0 Includes: PROPHYLAXIS forvenous thrombosis, systemic embolization; TREATMENT for venous thrombosis and/or pulmonary embolus.HIGH RISK: Target INR is 2.5-3.5 for patients with mechanical heart valves.While on warfarin.CBC (HEMOGRAM ONLY) 2019-01-05 05:15:00 Test Item Value Reference Range Comments WHITE BLOOD CELL COUNT (BEAKER) (test hoyq=020) 9.4 K/ L 3.5-10.5 RED BLOOD CELL COUNT (BEAKER) (test csxd=277) 2.54 M/ L 4.63-6.08 HEMOGLOBIN (BEAKER) (test rdfx=281) 8.2 GM/DL 13.7-17.5 HEMATOCRIT (BEAKER) (test lzcj=543) 27.1 % 40.1-51.0 MEAN CORPUSCULAR VOLUME (BEAKER) (test gydc=662) 106.7 fL 79.0-92.2 MEAN CORPUSCULAR HEMOGLOBIN (BEAKER) (test 32.3 pg 25.7-32.2 ttjn=317) MEAN CORPUSCULAR HEMOGLOBIN CONC (BEAKER) (test 30.3 GM/DL 32.3-36.5 lomj=854) RED CELL DISTRIBUTION WIDTH (BEAKER) (test 17.3 % 11.6-14.4 fqkt=523) PLATELET COUNT (BEAKER) (test xfmn=878) 151 K/CU MM 150-450 MEAN PLATELET VOLUME (BEAKER) (test lejm=777) 8.9 fL 9.4-12.4 NUCLEATED RED BLOOD CELLS (BEAKER) (test 1 /100 WBC 0-0 wnlx=003) BASIC METABOLIC [id number] 05:10:00 Test Item Value Reference Range Comments SODIUM (BEAKER) (test 134 meq/L 136-145 nalc=406) POTASSIUM (BEAKER) (test 4.0 meq/L 3.5-5.1 fbpf=000) CHLORIDE (BEAKER) (test 97 meq/L 98-107 vrrd=870) CO2 (BEAKER) (test 29 meq/L 22-29 mnhy=140) BLOOD UREA NITROGEN 41 mg/dL 7-21 (BEAKER) (test beal=524) CREATININE (BEAKER) (test 4.78 mg/dL 0.57-1.25 xzra=721) GLUCOSE RANDOM (BEAKER) 185 mg/dL 70-105 (test lvsd=476) CALCIUM (BEAKER) (test 9.3 mg/dL 8.4-10.2 dxlg=277) EGFR (BEAKER) (test 15 mL/min/1.73 sq m ESTIMATED GFR IS NOT diyv=4785) ACCURATE CREATININE CLEARANCE IN PREDICTING GLOMERULAR FILTRATION RATE. ESTIMATED GFR IS NOT APPLICABLE FOR DIALYSIS PATIENTS. OCCULT BLOOD, [id number] 23:46:00 Test Item Value Reference Range Comments FECAL OCCULT BLOOD (BEAKER) (test pewu=366) Negative Negative POCT-GLUCOSE [id number] 22:52:00 Test Item Value Reference Range Comments POC-GLUCOSE METER (BEAKER) 192 mg/dL 70-110 TESTED AT [facility] [address] [facility] (test zqcm=8888) [facility] [address] POCT-GLUCOSE [id number] 17:11:00 Test Item Value Reference Range Comments POC-GLUCOSE METER (BEAKER) 149 mg/dL 70-110 TESTED AT [facility] [address] [place] [address] (test owlh=3658) [facility] [address] PROTHROMBIN [id number] 13:00:00 Test Item Value Reference Range Comments PROTIME (BEAKER) (test etpu=915) 19.9 seconds 11.7-14.7 INR (BEAKER) (test lqqx=825) 1.8 <=5.9 RECOMMENDED COUMADIN/WARFARIN INR THERAPY RANGESSTANDARD DOSE: 2.0 - 3.0 Includes: PROPHYLAXIS forvenous thrombosis, systemic embolization; TREATMENT for venous thrombosis and/or pulmonary embolus.HIGH RISK: Target INR is 2.5-3.5 for patients with mechanical heart valves.While on warfarin.POCT-GLUCOSE [id number] 12:14:00 Test Item Value Reference Range Comments POC-GLUCOSE METER (BEAKER) 134 mg/dL 70-110 TESTED AT [address] (test aboc=9210) [place] [address] RAD, CHEST, 1 VIEW, NON [id number] 08:02:00Reason for exam:->Post opShould this be performed [...] MDReport Verified Date/Time: 01/04/2019 08:02:18 Reading Location: [address] Consult Reading Room Electronicallysigned by: EDENILSON BLOOM M.D. on 01/04/2019 08:02 AMPOCT-GLUCOSE [id number] 07:42:00 Test Item Value Reference Range Comments POC-GLUCOSE METER (BEAKER) 98 mg/dL 70-110 TESTED AT [address] (test cqrf=1552) [place] [id number] BASIC METABOLIC [id number] 07:28:00 Test Item Value Reference Range Comments SODIUM (BEAKER) (test 136 meq/L 136-145 pxsd=883) POTASSIUM (BEAKER) (test 4.1 meq/L 3.5-5.1 goyf=669) CHLORIDE (BEAKER) (test 98 meq/L 98-107 jktf=967) CO2 (BEAKER) (test 29 meq/L 22-29 scyq=660) BLOOD UREA NITROGEN 21 mg/dL 7-21 (BEAKER) (test dmeg=349) CREATININE (BEAKER) (test 3.10 mg/dL 0.57-1.25 wsqi=024) GLUCOSE RANDOM (BEAKER) 101 mg/dL 70-105 (test rqad=930) CALCIUM (BEAKER) (test 9.4 mg/dL 8.4-10.2 smnv=458) EGFR (BEAKER) (test 25 mL/min/1.73 sq m ESTIMATED GFR IS NOT gwhy=1658) ACCURATE CREATININE CLEARANCE IN PREDICTING GLOMERULAR FILTRATION RATE. ESTIMATED GFR IS NOT APPLICABLE FOR DIALYSIS PATIENTS. CBC (HEMOGRAM ONLY)2019-01-04 07:07:00 Test Item Value Reference Range Comments WHITE BLOOD CELL COUNT (BEAKER) (test oufs=414) 10.6 K/ L 3.5-10.5 RED BLOOD CELL COUNT (BEAKER) (test mqer=532) 2.69 M/ L 4.63-6.08 HEMOGLOBIN (BEAKER) (test veps=360) 8.7 GM/DL 13.7-17.5 HEMATOCRIT (BEAKER) (test zhhf=650) 28.4 % 40.1-51.0 MEAN CORPUSCULAR VOLUME (BEAKER) (test wbpj=295) 105.6 fL 79.0-92.2 MEAN CORPUSCULAR HEMOGLOBIN (BEAKER) (test 32.3 pg 25.7-32.2 scrt=361) MEAN CORPUSCULAR HEMOGLOBIN CONC (BEAKER) (test 30.6 GM/DL 32.3-36.5 snfb=012) RED CELL DISTRIBUTION WIDTH (BEAKER) (test 17.2 % 11.6-14.4 dxzc=331) PLATELET COUNT (BEAKER) (test llhy=021) 170 K/CU MM 150-450 MEAN PLATELET VOLUME (BEAKER) (test noaz=369) 9.1 fL 9.4-12.4 NUCLEATED RED BLOOD CELLS (BEAKER) (test 1 /100 WBC 0-0 mmcf=201) [id number] 06:08:00 Test Item Value Reference Range Comments PARTIAL THROMBOPLASTIN TIME (BEAKER) (test 70.6 seconds 22.5-36.0 xzmh=656) [id number] 23:32:00 Test Item Value Reference Range Comments PARTIAL THROMBOPLASTIN TIME (BEAKER) (test 77.2 seconds 22.5-36.0 njgt=345) POCT-GLUCOSE [id number] 21:55:00 Test Item Value Reference Range Comments POC-GLUCOSE METER (BEAKER) 150 mg/dL 70-110 TESTED AT [address] (test hgzq=3052) [place] [address] [id number] 18:25:00 Test Item Value Reference Range Comments PARTIAL THROMBOPLASTIN TIME (BEAKER) (test 71.2 seconds 22.5-36.0 rwqj=466) POCT-GLUCOSE [id number] 13:45:00 Test Item Value Reference Range Comments POC-GLUCOSE METER (BEAKER) 375 mg/dL 70-110 Notified LAURYN PÉREZ/TESTED AT [facility] (test iwqq=4756) [address] [place] [address] [id number] 10:26:00 Test Item Value Reference Range Comments PARTIAL THROMBOPLASTIN TIME (BEAKER) (test 94.0 seconds 22.5-36.0 oeus=760) While on warfarin.PROTHROMBIN [id number] 10:24:00 Test Item Value Reference Range Comments PROTIME (BEAKER) (test ukjs=404) 19.3 seconds 11.7-14.7 INR (BEAKER) (test syhy=827) 1.7 <=5.9 RECOMMENDED COUMADIN/WARFARIN INR THERAPY RANGESSTANDARD DOSE: 2.0 - 3.0 Includes: PROPHYLAXIS forvenous thrombosis, systemic embolization; TREATMENT for venous thrombosis and/or pulmonary embolus.HIGH RISK: Target INR is 2.5-3.5 for patients with mechanical heart valves.While on warfarin.POCT-GLUCOSE [id number] 08:36:00 Test Item Value Reference Range Comments POC-GLUCOSE METER (BEAKER) 124 mg/dL 70-110 TESTED AT [address] (test cibn=4694) [place] [address] RAD, CHEST, 1 VIEW, NON [id number] 08:19:00Reason for exam:->Post opShould this be performed [...] Lisa Verified Date/Time: 01/03/2019 08:19:51 Reading Location: [facility] C013V Neuro Reading Room 08: 19 [id number] 03:31:00 Test Item Value Reference Range Comments PARTIAL THROMBOPLASTIN TIME (BEAKER) (test 64.2 seconds 22.5-36.0 gblv=401) BASIC METABOLIC [id number] 03:21:00 Test Item Value Reference Range Comments SODIUM (BEAKER) (test 132 meq/L 136-145 ehjw=323) POTASSIUM (BEAKER) (test 3.9 meq/L 3.5-5.1 kakg=865) CHLORIDE (BEAKER) (test 95 meq/L 98-107 mmhj=036) CO2 (BEAKER) (test 28 meq/L 22-29 zhgi=403) BLOOD UREA NITROGEN 37 mg/dL 7-21 (BEAKER) (test tddv=947) CREATININE (BEAKER) (test 4.74 mg/dL 0.57-1.25 zmrh=062) GLUCOSE RANDOM (BEAKER) 125 mg/dL 70-105 (test xtfb=346) CALCIUM (BEAKER) (test 9.2 mg/dL 8.4-10.2 aryi=442) EGFR (BEAKER) (test 15 mL/min/1.73 sq m ESTIMATED GFR IS NOT zatw=7409) ACCURATE CREATININE CLEARANCE IN PREDICTING GLOMERULAR FILTRATION RATE. ESTIMATED GFR IS NOT APPLICABLE FOR DIALYSIS PATIENTS. CBC (HEMOGRAM ONLY)2019-01-03 02:58:00 Test Item Value Reference Range Comments WHITE BLOOD CELL COUNT (BEAKER) (test pmhc=412) 10.8 K/ L 3.5-10.5 RED BLOOD CELL COUNT (BEAKER) (test eerd=377) 2.61 M/ L 4.63-6.08 HEMOGLOBIN (BEAKER) (test pcnc=802) 8.2 GM/DL 13.7-17.5 HEMATOCRIT (BEAKER) (test tpok=142) 26.9 % 40.1-51.0 MEAN CORPUSCULAR VOLUME (BEAKER) (test mqzu=120) 103.1 fL 79.0-92.2 MEAN CORPUSCULAR HEMOGLOBIN (BEAKER) (test 31.4 pg 25.7-32.2 mead=460) MEAN CORPUSCULAR HEMOGLOBIN CONC (BEAKER) (test 30.5 GM/DL 32.3-36.5 jbew=901) RED CELL DISTRIBUTION WIDTH (BEAKER) (test 16.1 % 11.6-14.4 nihn=187) PLATELET COUNT (BEAKER) (test eqbz=692) 167 K/CU MM 150-450 MEAN PLATELET VOLUME (BEAKER) (test tdce=566) 8.7 fL 9.4-12.4 NUCLEATED RED BLOOD CELLS (BEAKER) (test 1 /100 WBC 0-0 npbe=009) POCT-GLUCOSE [id number] 22:54:00 Test Item Value Reference Range Comments POC-GLUCOSE METER (BEAKER) 206 mg/dL 70-110 TESTED AT [address] (test gniq=4473) [place] [address] [id number] 19:36:00 Test Item Value Reference Range Comments PARTIAL THROMBOPLASTIN TIME (BEAKER) (test 79.3 seconds 22.5-36.0 cdxk=745) POCT-GLUCOSE [id number] 17:59:00 Test Item Value Reference Range Comments POC-GLUCOSE METER (BEAKER) 186 mg/dL 70-110 TESTED AT [address] (test lyof=1067) [place] [address] POCT-GLUCOSE [id number] 13:54:00 Test Item Value Reference Range Comments POC-GLUCOSE METER (BEAKER) 139 mg/dL 70-110 TESTED AT [address] (test qtcm=0425) [place] [address] POCT-GLUCOSE [id number] 13:05:00 Test Item Value Reference Range Comments POC-GLUCOSE METER (BEAKER) 163 mg/dL 70-110 TESTED AT [address] (test scie=9385) [place] [address] [id number] 12:49:00 Test Item Value Reference Range Comments PARTIAL THROMBOPLASTIN TIME (BEAKER) (test 64.9 seconds 22.5-36.0 mqex=336) OCCULT BLOOD, [id number] 12:31:00 Test Item Value Reference Range Comments FECAL OCCULT BLOOD (BEAKER) (test xaep=180) Negative Negative RAD, CHEST, 1 VIEW, NON [id number] 10:37:00Reason for exam:->Post opShould this be performed [...] IMPRESSION: No significant change. Signed: [facility] Verified Date/Time: 01/02/2019 10:37:35 Reading Location: [facility] Radiology Reading Room POCT-GLUCOSE [id number] 08:07:00 Test Item Value Reference Range Comments POC-GLUCOSE METER (BEAKER) 107 mg/dL 70-110 TESTED AT [facility] [address] [facility] (test rxfm=2652) [facility] [address] [id number] 04:48:00 Test Item Value Reference Range Comments PARTIAL THROMBOPLASTIN TIME (BEAKER) (test 106.0 seconds 22.5-36.0 myyj=209) While on warfarin.BASIC METABOLIC [id number] 04:48:00 Test Item Value Reference Range Comments SODIUM (BEAKER) (test 135 meq/L 136-145 ozwv=024) POTASSIUM (BEAKER) (test 4.0 meq/L 3.5-5.1 ambb=735) CHLORIDE (BEAKER) (test 98 meq/L 98-107 vikc=920) CO2 (BEAKER) (test 31 meq/L 22-29 uhlm=645) BLOOD UREA NITROGEN 25 mg/dL 7-21 (BEAKER) (test hlfv=770) CREATININE (BEAKER) (test 3.58 mg/dL 0.57-1.25 ovzu=463) GLUCOSE RANDOM (BEAKER) 86 mg/dL 70-105 (test jzds=664) CALCIUM (BEAKER) (test 9.1 mg/dL 8.4-10.2 risn=105) EGFR (BEAKER) (test 21 mL/min/1.73 sq m ESTIMATED GFR IS NOT zvrn=2080) ACCURATE CREATININE CLEARANCE IN PREDICTING GLOMERULAR FILTRATION RATE. ESTIMATED GFR IS NOT APPLICABLE FOR DIALYSIS PATIENTS. PROTHROMBIN [id number] 04:39:00 Test Item Value Reference Range Comments PROTIME (BEAKER) (test eooo=862) 19.4 seconds 11.7-14.7 INR (BEAKER) (test noym=167) 1.7 <=5.9 RECOMMENDED COUMADIN/WARFARIN INR THERAPY RANGESSTANDARD DOSE: 2.0 - 3.0 Includes: PROPHYLAXIS forvenous thrombosis, systemic embolization; TREATMENT for venous thrombosis and/or pulmonary embolus.HIGH RISK: Target INR is 2.5-3.5 for patients with mechanical heart valves.While on warfarin.CBC (HEMOGRAM ONLY) 2019-01-02 04:30:00 Test Item Value Reference Range Comments WHITE BLOOD CELL COUNT (BEAKER) (test svzw=146) 12.4 K/ L 3.5-10.5 RED BLOOD CELL COUNT (BEAKER) (test aaor=695) 2.51 M/ L 4.63-6.08 HEMOGLOBIN (BEAKER) (test axyy=943) 8.2 GM/DL 13.7-17.5 HEMATOCRIT (BEAKER) (test noaa=360) 26.0 % 40.1-51.0 MEAN CORPUSCULAR VOLUME (BEAKER) (test cloy=494) 103.6 fL 79.0-92.2 MEAN CORPUSCULAR HEMOGLOBIN (BEAKER) (test 32.7 pg 25.7-32.2 ljpu=392) MEAN CORPUSCULAR HEMOGLOBIN CONC (BEAKER) (test 31.5 GM/DL 32.3-36.5 meaa=641) RED CELL DISTRIBUTION WIDTH (BEAKER) (test 16.5 % 11.6-14.4 xafm=796) PLATELET COUNT (BEAKER) (test mtxz=828) 161 K/CU MM 150-450 MEAN PLATELET VOLUME (BEAKER) (test axkg=728) 8.9 fL 9.4-12.4 NUCLEATED RED BLOOD CELLS (BEAKER) (test 0 /100 WBC 0-0 smbh=865) POCT-GLUCOSE [id number] 22:17:00 Test Item Value Reference Range Comments POC-GLUCOSE METER (BEAKER) 117 mg/dL 70-110 TESTED AT [address] (test cmol=6286) [place] [id number] RAD, CHEST, 1 VIEW, NON [id number] 19:40:00Reason for exam:->Post opShould this be performed [...] clear. IMPRESSION: No interval change. Signed: [facility]ilson [facility] Verified Date/Time: 2018 19:40:01 Reading Location: [address] Consult Reading Room POCT-GLUCOSE [id number] 18:22:00 Test Item Value Reference Range Comments POC-GLUCOSE METER (BEAKER) 159 mg/dL 70-110 TESTED AT [address] (test zdvf=4315) [place] [id number] POCT-GLUCOSE [id number] 14:12:00 Test Item Value Reference Range Comments POC-GLUCOSE METER (BEAKER) 135 mg/dL 70-110 TESTED AT [address] (test ymor=7386) [place] [address] HEPATITIS B SURFACE [id number] 11:52:00 Test Item Value Reference Range Comments HEPATITIS B SURFACE ANTIGEN (2) (BEAKER) (test Nonreactive Nonreactive vkiz=8250) POCT-GLUCOSE [id number] 08:40:00 Test Item Value Reference Range Comments POC-GLUCOSE METER (BEAKER) 85 mg/dL 70-110 TESTED AT [facility] [address] (test gbhu=8497) [facility] [address] BASIC METABOLIC [id number] 04:17:00 Test Item Value Reference Range Comments SODIUM (BEAKER) (test 132 meq/L 136-145 xdjk=029) POTASSIUM (BEAKER) (test 4.2 meq/L 3.5-5.1 Specimen slightly vnjh=947) hemolyzed CHLORIDE (BEAKER) (test 95 meq/L 98-107 bycx=818) CO2 (BEAKER) (test 30 meq/L 22-29 qpxp=893) BLOOD UREA NITROGEN 41 mg/dL 7-21 (BEAKER) (test jbwk=785) CREATININE (BEAKER) (test 4.98 mg/dL 0.57-1.25 Specimen slightly zies=589) hemolyzed GLUCOSE RANDOM (BEAKER) 96 mg/dL 70-105 (test dpqd=065) CALCIUM (BEAKER) (test 9.2 mg/dL 8.4-10.2 vbmj=420) EGFR (BEAKER) (test 14 mL/min/1.73 sq m ESTIMATED GFR IS NOT jjuy=6468) ACCURATE CREATININE CLEARANCE IN PREDICTING GLOMERULAR FILTRATION RATE. ESTIMATED GFR IS NOT APPLICABLE FOR DIALYSIS PATIENTS. [id number] 03:40:00 Test Item Value Reference Range Comments PARTIAL THROMBOPLASTIN TIME (BEAKER) (test 84.1 seconds 22.5-36.0 syxf=858) While on warfarin.PROTHROMBIN TIME/[id number] 03:39:00 Test Item Value Reference Range Comments PROTIME (BEAKER) (test wcgm=278) 19.1 seconds 11.7-14.7 INR (BEAKER) (test byio=921) 1.7 <=5.9 RECOMMENDED COUMADIN/WARFARIN INR THERAPY RANGESSTANDARD DOSE: 2.0 - 3.0 Includes: PROPHYLAXIS forvenous thrombosis, systemic embolization; TREATMENT for venous thrombosis and/or pulmonary embolus.HIGH RISK: Target INR is 2.5-3.5 for patients with mechanical heart valves.While on warfarin.CBC (HEMOGRAM ONLY) 2019-01-01 03:29:00 Test Item Value Reference Range Comments WHITE BLOOD CELL COUNT (BEAKER) (test rrsz=161) 13.2 K/ L 3.5-10.5 RED BLOOD CELL COUNT (BEAKER) (test kcjc=579) 2.60 M/ L 4.63-6.08 HEMOGLOBIN (BEAKER) (test omdj=437) 8.3 GM/DL 13.7-17.5 HEMATOCRIT (BEAKER) (test srmq=375) 26.3 % 40.1-51.0 MEAN CORPUSCULAR VOLUME (BEAKER) (test npwe=806) 101.2 fL 79.0-92.2 MEAN CORPUSCULAR HEMOGLOBIN (BEAKER) (test 31.9 pg 25.7-32.2 mymz=184) MEAN CORPUSCULAR HEMOGLOBIN CONC (BEAKER) (test 31.6 GM/DL 32.3-36.5 voko=116) RED CELL DISTRIBUTION WIDTH (BEAKER) (test 15.9 % 11.6-14.4 giom=423) PLATELET COUNT (BEAKER) (test icax=097) 186 K/CU MM 150-450 MEAN PLATELET VOLUME (BEAKER) (test qrny=570) 9.0 fL 9.4-12.4 NUCLEATED RED BLOOD CELLS (BEAKER) (test 0 /100 WBC 0-0 gvtm=727) POCT-GLUCOSE [id number] 22:08:00 Test Item Value Reference Range Comments POC-GLUCOSE METER (BEAKER) 194 mg/dL 70-110 TESTED AT [address] (test ujkx=9475) [place] [address] POCT-GLUCOSE [id number] 22:03:00 Test Item Value Reference Range Comments POC-GLUCOSE METER (BEAKER) 203 mg/dL 70-110 TESTED AT [address] (test wkde=1766) [place] [id number] POCT-GLUCOSE [id number] 21:42:00 Test Item Value Reference Range Comments POC-GLUCOSE METER (BEAKER) 42 mg/dL 70-110 TESTED AT [address] (test rwla=2352) [place] [address] [id number] 21:35:00 Test Item Value Reference Range Comments PARTIAL THROMBOPLASTIN TIME (BEAKER) (test 80.4 seconds 22.5-36.0 frux=854) POCT-GLUCOSE [id number] 18:03:00 Test Item Value Reference Range Comments POC-GLUCOSE METER (BEAKER) 144 mg/dL 70-110 TESTED AT [facility] [address] (test knhm=9608) [facility] [address] TISSUE [id number] 16:33:00Surgical Pathology Report Case: [id number] Authorizing Provider: Enmanuel Sharma Collected: 12/26/2018 1537 MD Liban OrderingLocation: [facility] 11 [facility] Received: 2018 0814 Service Pathologist: Brigida Parks [...] stains. GMSImmunohistochemistry technical testing was performed at [facility], Pathology Laboratory where it was developed [...] toperform high complexity clinical laboratory testing.CPT CODE: [id number] electronically signed byBrigida Parks MD on 12/31/2018 [...] ARE NEGATIVE Signing Pathologist Direct Phone Line: [phone] signed by Brigida Parks MD on 12/30/2018 at 6:43 PMPreliminary result electronically signed by Brigida Parks MD on 12/29/2018 at 4:54 [id number] X 2; [id number]; 92009; 44316 X 2Upper endoscopy, biopsyPreoperative and postoperative diagnosis: [...] AND CMVImmunohistochemistry technical testing was performed at [facility], Pathology Laboratory where it was developed [...] qualified toperform high complexity clinical laboratory testing.POCT-GLUCOSE [id number] 13:57:00 Test Item Value Reference Range Comments POC-GLUCOSE METER (BEAKER) 178 mg/dL 70-110 TESTED AT [facility] [address] [facility] (test omlx=6341) [facility] [address] [id number] 12:54:00 Test Item Value Reference Range Comments PARTIAL THROMBOPLASTIN TIME (BEAKER) (test 69.4 seconds 22.5-36.0 nnef=236) RAD, CHEST, 1 VIEW, NON [id number] 09:26:00Reason for exam:->Post opShould this be performed [...] MDReport Verified Date/Time: 12/31/2018 09:26:31 Reading Location: [facility] Radiology Reading Room POCT-GLUCOSE [id number] 09:01:00 Test Item Value Reference Range Comments POC-GLUCOSE METER (BEAKER) 162 mg/dL 70-110 TESTED AT [facility] [address] [facility] (test jivx=6184) [facility] [address] BASIC METABOLIC [id number] 06:50:00 Test Item Value Reference Range Comments SODIUM (BEAKER) (test 132 meq/L 136-145 wzkc=934) POTASSIUM (BEAKER) (test 3.5 meq/L 3.5-5.1 cnzc=153) CHLORIDE (BEAKER) (test 96 meq/L 98-107 sxuv=135) CO2 (BEAKER) (test 30 meq/L 22-29 aydj=354) BLOOD UREA NITROGEN 26 mg/dL 7-21 (BEAKER) (test pxxb=438) CREATININE (BEAKER) (test 3.97 mg/dL 0.57-1.25 epuv=086) GLUCOSE RANDOM (BEAKER) 151 mg/dL 70-105 (test lxnh=218) CALCIUM (BEAKER) (test 8.5 mg/dL 8.4-10.2 cwpx=646) EGFR (BEAKER) (test 19 mL/min/1.73 sq m ESTIMATED GFR IS NOT zmwt=2472) ACCURATE CREATININE CLEARANCE IN PREDICTING GLOMERULAR FILTRATION RATE. ESTIMATED GFR IS NOT APPLICABLE FOR DIALYSIS PATIENTS. PROTHROMBIN TIME/[id number] 06:38:00 Test Item Value Reference Range Comments PROTIME (BEAKER) (test axyz=104) 19.1 seconds 11.7-14.7 INR (BEAKER) (test ecni=712) 1.7 <=5.9 RECOMMENDED COUMADIN/WARFARIN INR THERAPY RANGESSTANDARD DOSE: 2.0 - 3.0 Includes: PROPHYLAXIS forvenous thrombosis, systemic embolization; TREATMENT for venous thrombosis and/or pulmonary embolus.HIGH RISK: Target INR is 2.5-3.5 for patients with mechanical heart valves.While on warfarin.[id number] 06:37 :00 Test Item Value Reference Range Comments PARTIAL THROMBOPLASTIN TIME (BEAKER) (test 85.3 seconds 22.5-36.0 tsev=882) CBC (HEMOGRAM ONLY)2018-12-31 06:20:00 Test Item Value Reference Range Comments WHITE BLOOD CELL COUNT (BEAKER) (test acdy=464) 11.9 K/ L 3.5-10.5 RED BLOOD CELL COUNT (BEAKER) (test cwvj=757) 2.58 M/ L 4.63-6.08 HEMOGLOBIN (BEAKER) (test lvtg=468) 8.3 GM/DL 13.7-17.5 HEMATOCRIT (BEAKER) (test bulb=467) 26.2 % 40.1-51.0 MEAN CORPUSCULAR VOLUME (BEAKER) (test lyvo=745) 101.6 fL 79.0-92.2 MEAN CORPUSCULAR HEMOGLOBIN (BEAKER) (test 32.2 pg 25.7-32.2 ktjg=890) MEAN CORPUSCULAR HEMOGLOBIN CONC (BEAKER) (test 31.7 GM/DL 32.3-36.5 iruz=012) RED CELL DISTRIBUTION WIDTH (BEAKER) (test 15.9 % 11.6-14.4 ktyj=132) PLATELET COUNT (BEAKER) (test hign=162) 156 K/CU MM 150-450 MEAN PLATELET VOLUME (BEAKER) (test xiih=000) 8.7 fL 9.4-12.4 NUCLEATED RED BLOOD CELLS (BEAKER) (test 0 /100 WBC 0-0 tssh=843) POCT-GLUCOSE [id number] 00:45:00 Test Item Value Reference Range Comments POC-GLUCOSE METER (BEAKER) 124 mg/dL 70-110 TESTED AT [facility] [address] [facility] (test mafa=2182) [facility] [address] [id number] 19:14:00 Test Item Value Reference Range Comments PARTIAL THROMBOPLASTIN TIME (BEAKER) (test 57.8 seconds 22.5-36.0 qjrs=292) POCT-GLUCOSE [id number] 17:53:00 Test Item Value Reference Range Comments POC-GLUCOSE METER (BEAKER) 133 mg/dL 70-110 TESTED AT [address] (test xzzn=5543) [place] [address] POCT-GLUCOSE [id number] 13:19:00 Test Item Value Reference Range Comments POC-GLUCOSE METER (BEAKER) 147 mg/dL 70-110 TESTED AT [address] (test kxcx=9575) [place] [address] [id number] 12:43:00 Test Item Value Reference Range Comments PARTIAL THROMBOPLASTIN TIME (BEAKER) (test 57.0 seconds 22.5-36.0 biyi=343) [id number] 10:17:00 Test Item Value Reference Range Comments PARTIAL THROMBOPLASTIN TIME (BEAKER) (test 134.5 seconds 22.5-36.0 jidr=419) POCT-GLUCOSE [id number] 07:43:00 Test Item Value Reference Range Comments POC-GLUCOSE METER (BEAKER) 107 mg/dL 70-110 TESTED AT [address] (test muvj=2845) [place] [address] BASIC METABOLIC [id number] 06:46:00 Test Item Value Reference Range Comments SODIUM (BEAKER) (test 129 meq/L 136-145 aybr=982) POTASSIUM (BEAKER) (test 4.1 meq/L 3.5-5.1 iihz=952) CHLORIDE (BEAKER) (test 93 meq/L 98-107 jupi=971) CO2 (BEAKER) (test 28 meq/L 22-29 hubd=758) BLOOD UREA NITROGEN 43 mg/dL 7-21 (BEAKER) (test yiqw=099) CREATININE (BEAKER) (test 6.30 mg/dL 0.57-1.25 siec=307) GLUCOSE RANDOM (BEAKER) 110 mg/dL 70-105 (test sbyw=400) CALCIUM (BEAKER) (test 8.5 mg/dL 8.4-10.2 klqx=118) EGFR (BEAKER) (test 11 mL/min/1.73 sq m ESTIMATED GFR IS NOT kozm=6715) ACCURATE CREATININE CLEARANCE IN PREDICTING GLOMERULAR FILTRATION RATE. ESTIMATED GFR IS NOT APPLICABLE FOR DIALYSIS PATIENTS. RAD, CHEST, 1 VIEW, NON [id number] 06:25:00Reason for exam:->Post opShould this be performed [...] Lisa Verified Date/Time: 12/30/2018 06:25:51 Reading Location: [address] Neuro Reading Room PROTHROMBIN TIME/[id number] 06:06:00 Test Item Value Reference Range Comments PROTIME (BEAKER) (test srxl=548) 19.5 seconds 11.7-14.7 INR (BEAKER) (test qgbo=372) 1.8 <=5.9 RECOMMENDED COUMADIN/WARFARIN INR THERAPY RANGESSTANDARD DOSE: 2.0 - 3.0 Includes: PROPHYLAXIS forvenous thrombosis, systemic embolization; TREATMENT for venous thrombosis and/or pulmonary embolus.HIGH RISK: Target INR is 2.5-3.5 for patients with mechanical heart valves.While on warfarin.CBC (HEMOGRAM ONLY) 2018-12-30 06:00:00 Test Item Value Reference Range Comments WHITE BLOOD CELL COUNT (BEAKER) (test oiwk=513) 11.4 K/ L 3.5-10.5 RED BLOOD CELL COUNT (BEAKER) (test gyqn=305) 2.62 M/ L 4.63-6.08 HEMOGLOBIN (BEAKER) (test yvlo=121) 8.4 GM/DL 13.7-17.5 HEMATOCRIT (BEAKER) (test umpd=206) 26.1 % 40.1-51.0 MEAN CORPUSCULAR VOLUME (BEAKER) (test ffjo=682) 99.6 fL 79.0-92.2 MEAN CORPUSCULAR HEMOGLOBIN (BEAKER) (test 32.1 pg 25.7-32.2 xecg=269) MEAN CORPUSCULAR HEMOGLOBIN CONC (BEAKER) (test 32.2 GM/DL 32.3-36.5 vcua=502) RED CELL DISTRIBUTION WIDTH (BEAKER) (test 15.5 % 11.6-14.4 fqzj=493) PLATELET COUNT (BEAKER) (test tbft=430) 139 K/CU MM 150-450 MEAN PLATELET VOLUME (BEAKER) (test mskq=683) 9.1 fL 9.4-12.4 NUCLEATED RED BLOOD CELLS (BEAKER) (test 0 /100 WBC 0-0 jxji=405) POCT-GLUCOSE [id number] 22:19:00 Test Item Value Reference Range Comments POC-GLUCOSE METER (BEAKER) 179 mg/dL 70-110 TESTED AT [address] (test ymrb=1169) [place] [id number] POCT-GLUCOSE [id number] 17:39:00 Test Item Value Reference Range Comments POC-GLUCOSE METER (BEAKER) 181 mg/dL 70-110 TESTED AT [address] (test ljbh=4015) [facility] [address] POCT-GLUCOSE [id number] 13:14:00 Test Item Value Reference Range Comments POC-GLUCOSE METER (BEAKER) 102 mg/dL 70-110 TESTED AT [address] (test tyrw=2014) [facility] [address] RAD, CHEST, 1 VIEW, NON [id number] 08:56:00Reason for exam:->Post opShould this be performed [...] Verified Date/Time : 12/29/2018 08:56:32 Reading Location: [facility] Reading Room Electronically signed by: EDENILSON BLOOM M.D.on 12/29/2018 08:56 AMPOCT- GLUCOSE [id number] 07:53:00 Test Item Value Reference Range Comments POC-GLUCOSE METER (BEAKER) 135 mg/dL 70-110 TESTED AT [facility] [address] (test yjvv=0833) [place] [address] [id number] 06:45:00 Test Item Value Reference Range Comments PARTIAL THROMBOPLASTIN TIME (BEAKER) (test 83.5 seconds 22.5-36.0 dicr=977) While on warfarin.PROTHROMBIN TIME/[id number] 06:44:00 Test Item Value Reference Range Comments PROTIME (BEAKER) (test socg=755) 17.1 seconds 11.7-14.7 INR (BEAKER) (test sjlz=788) 1.5 <=5.9 RECOMMENDED COUMADIN/WARFARIN INR THERAPY RANGESSTANDARD DOSE: 2.0 - 3.0 Includes: PROPHYLAXIS forvenous thrombosis, systemic embolization; TREATMENT for venous thrombosis and/or pulmonary embolus.HIGH RISK: Target INR is 2.5-3.5 for patients with mechanical heart valves.While on warfarin.BASIC METABOLIC [id number] 05:56:00 Test Item Value Reference Range Comments SODIUM (BEAKER) (test 129 meq/L 136-145 kwhx=296) POTASSIUM (BEAKER) (test 4.2 meq/L 3.5-5.1 dfin=020) CHLORIDE (BEAKER) (test 93 meq/L 98-107 jwsl=218) CO2 (BEAKER) (test 29 meq/L 22-29 xqri=462) BLOOD UREA NITROGEN 31 mg/dL 7-21 (BEAKER) (test ueii=156) CREATININE (BEAKER) (test 5.18 mg/dL 0.57-1.25 nlpe=111) GLUCOSE RANDOM (BEAKER) 96 mg/dL 70-105 (test xask=892) CALCIUM (BEAKER) (test 8.3 mg/dL 8.4-10.2 sgua=128) EGFR (BEAKER) (test 14 mL/min/1.73 sq m ESTIMATED GFR IS NOT uhjs=2796) ACCURATE CREATININE CLEARANCE IN PREDICTING GLOMERULAR FILTRATION RATE. ESTIMATED GFR IS NOT APPLICABLE FOR DIALYSIS PATIENTS. CBC (HEMOGRAM ONLY)2018-12-29 05:22:00 Test Item Value Reference Range Comments WHITE BLOOD CELL COUNT (BEAKER) (test iwqr=668) 12.0 K/ L 3.5-10.5 RED BLOOD CELL COUNT (BEAKER) (test otoy=140) 2.66 M/ L 4.63-6.08 HEMOGLOBIN (BEAKER) (test pemb=486) 8.7 GM/DL 13.7-17.5 HEMATOCRIT (BEAKER) (test mkkw=629) 26.6 % 40.1-51.0 MEAN CORPUSCULAR VOLUME (BEAKER) (test wzzl=313) 100.0 fL 79.0-92.2 MEAN CORPUSCULAR HEMOGLOBIN (BEAKER) (test 32.7 pg 25.7-32.2 dzei=107) MEAN CORPUSCULAR HEMOGLOBIN CONC (BEAKER) (test 32.7 GM/DL 32.3-36.5 bgtw=696) RED CELL DISTRIBUTION WIDTH (BEAKER) (test 15.6 % 11.6-14.4 zpvk=964) PLATELET COUNT (BEAKER) (test xlqc=044) 131 K/CU MM 150-450 MEAN PLATELET VOLUME (BEAKER) (test kpym=552) 9.1 fL 9.4-12.4 NUCLEATED RED BLOOD CELLS (BEAKER) (test 0 /100 WBC 0-0 gvfg=470) [id number] 00:01:00 Test Item Value Reference Range Comments PARTIAL THROMBOPLASTIN TIME (BEAKER) (test 78.5 seconds 22.5-36.0 jlci=870) POCT-GLUCOSE [id number] 21:26:00 Test Item Value Reference Range Comments POC-GLUCOSE METER (BEAKER) 139 mg/dL 70-110 TESTED AT [address] (test coio=6960) [facility] [address] POCT-GLUCOSE [id number] 17:58:00 Test Item Value Reference Range Comments POC-GLUCOSE METER (BEAKER) 146 mg/dL 70-110 TESTED AT [address] (test bqpj=6496) [facility] [address] [id number] 17:16:00 Test Item Value Reference Range Comments PARTIAL THROMBOPLASTIN TIME (BEAKER) (test 34.5 seconds 22.5-36.0 xwif=961) Prior to initiating heparinPOCT-GLUCOSE [id number] 12:54:00 Test Item Value Reference Range Comments POC-GLUCOSE METER (BEAKER) 133 mg/dL 70-110 TESTED AT [facility] [address] (test vxhl=3200) [facility] [address] RAD, CHEST, 1 VIEW, NON [id number] 08:06:00Reason for exam:->Post opShould this be performed at the bedside?->YesFINAL REPORT Chest one view. Clinical history: Post op Comparison: 2018Discussion: A frontal chest is provided. Cardiomediastinal contours are unchanged. Lines and tubesare in stable position. Unchanged right-sided pleural-parenchymal opacities. Left lung is grossly clear. Vessels do not appear engorged. No pneumothorax. Signed: Dionicio Cheryeport Verified Date/Time: 12/28/2018 08:06:07 Reading Location: [facility] C013V Neuro Reading Room BASIC METABOLIC [id number] 06:52:00 Test Item Value Reference Range Comments SODIUM (BEAKER) (test 130 meq/L 136-145 brvi=551) POTASSIUM (BEAKER) (test 3.9 meq/L 3.5-5.1 ocum=889) CHLORIDE (BEAKER) (test 94 meq/L 98-107 gszr=415) CO2 (BEAKER) (test 29 meq/L 22-29 jjvm=378) BLOOD UREA NITROGEN 18 mg/dL 7-21 (BEAKER) (test ziwz=736) CREATININE (BEAKER) (test 3.73 mg/dL 0.57-1.25 bfpm=095) GLUCOSE RANDOM (BEAKER) 104 mg/dL 70-105 (test tfgo=305) CALCIUM (BEAKER) (test 8.7 mg/dL 8.4-10.2 ayrk=685) EGFR (BEAKER) (test 20 mL/min/1.73 sq m ESTIMATED GFR IS NOT driy=4246) ACCURATE CREATININE CLEARANCE IN PREDICTING GLOMERULAR FILTRATION RATE. ESTIMATED GFR IS NOT APPLICABLE FOR DIALYSIS PATIENTS. PROTHROMBIN TIME/[id number] 06:31:00 Test Item Value Reference Range Comments PROTIME (BEAKER) (test wozm=627) 19.4 seconds 11.7-14.7 INR (BEAKER) (test ojxq=883) 1.7 <=5.9 RECOMMENDED COUMADIN/WARFARIN INR THERAPY RANGESSTANDARD DOSE: 2.0 - 3.0 Includes: PROPHYLAXIS forvenous thrombosis, systemic embolization; TREATMENT for venous thrombosis and/or pulmonary embolus.HIGH RISK: Target INR is 2.5-3.5 for patients with mechanical heart valves.CBC (HEMOGRAM ONLY)2018-12-28 06:09:00 Test Item Value Reference Range Comments WHITE BLOOD CELL COUNT (BEAKER) (test jrdb=643) 9.9 K/ L 3.5-10.5 RED BLOOD CELL COUNT (BEAKER) (test jvda=231) 2.79 M/ L 4.63-6.08 HEMOGLOBIN (BEAKER) (test ecfq=331) 8.9 GM/DL 13.7-17.5 HEMATOCRIT (BEAKER) (test viyx=774) 28.2 % 40.1-51.0 MEAN CORPUSCULAR VOLUME (BEAKER) (test ncxz=561) 101.1 fL 79.0-92.2 MEAN CORPUSCULAR HEMOGLOBIN (BEAKER) (test 31.9 pg 25.7-32.2 nbtw=915) MEAN CORPUSCULAR HEMOGLOBIN CONC (BEAKER) (test 31.6 GM/DL 32.3-36.5 pvjf=540) RED CELL DISTRIBUTION WIDTH (BEAKER) (test 15.9 % 11.6-14.4 jupf=102) PLATELET COUNT (BEAKER) (test ybfh=174) 110 K/CU MM 150-450 MEAN PLATELET VOLUME (BEAKER) (test trlb=452) 9.3 fL 9.4-12.4 NUCLEATED RED BLOOD CELLS (BEAKER) (test 0 /100 WBC 0-0 lzqu=975) POCT-GLUCOSE [id number] 21:41:00 Test Item Value Reference Range Comments POC-GLUCOSE METER (BEAKER) 163 mg/dL 70-110 TESTED AT [facility] [address] [facility] (test huxo=6584) [facility] [address] POCT-GLUCOSE [id number] 17:23:00 Test Item Value Reference Range Comments POC-GLUCOSE METER (BEAKER) 119 mg/dL 70-110 TESTED AT [facility] [address] (test rsgk=3782) [facility] [address] RAD, CHEST, 1 VIEW, NON [id number] 14:49:00Reason for exam:->Post opShould this be performed [...] MDReport Verified Date/Time: 12/27/2018 14:49:48 Reading Location: [address] Ortho Consult Reading Room ANG, NON-TUNNELED CATH > 5 Y.O. [id number] 14:17:00Reason for exam:->Central line placement, poor access, [...] guide wire was advanced centrally. A 7 [place] 20 cm triple lumen catheter was advanced [...] Sykes Verified Date/Time: 12/27/2018 14:17:02 Reading Location: [facility] P048 Angio Body Reading Room Electronically signed by: BONNY SYKES M.D. on 02:17 [id number] 13:44:00 Test Item Value Reference Range Comments PARTIAL THROMBOPLASTIN TIME (BEAKER) (test 44.3 seconds 22.5-36.0 rxuo=415) Prior to initiating heparinPOCT-GLUCOSE [id number] 13:27:00 Test Item Value Reference Range Comments POC-GLUCOSE METER (BEAKER) 127 mg/dL 70-110 TESTED AT [address] (test qqiv=1525) [place] [id number] POCT-GLUCOSE [id number] 08:58:00 Test Item Value Reference Range Comments POC-GLUCOSE METER (BEAKER) 79 mg/dL 70-110 TESTED AT [address] (test wnzj=6264) [facility] [address] BASIC METABOLIC [id number] 07:09:00 Test Item Value Reference Range Comments SODIUM (BEAKER) (test 135 meq/L 136-145 uckp=643) POTASSIUM (BEAKER) (test 3.8 meq/L 3.5-5.1 llpc=588) CHLORIDE (BEAKER) (test 96 meq/L 98-107 htlq=681) CO2 (BEAKER) (test 35 meq/L 22-29 lzrr=543) BLOOD UREA NITROGEN 18 mg/dL 7-21 (BEAKER) (test ejhq=520) CREATININE (BEAKER) (test 4.91 mg/dL 0.57-1.25 gejl=537) GLUCOSE RANDOM (BEAKER) 81 mg/dL 70-105 (test svnl=860) CALCIUM (BEAKER) (test 8.5 mg/dL 8.4-10.2 oncs=429) EGFR (BEAKER) (test 15 mL/min/1.73 sq m ESTIMATED GFR IS NOT xqlf=8063) ACCURATE CREATININE CLEARANCE IN PREDICTING GLOMERULAR FILTRATION RATE. ESTIMATED GFR IS NOT APPLICABLE FOR DIALYSIS PATIENTS. PROTHROMBIN TIME/[id number] 06:52:00 Test Item Value Reference Range Comments PROTIME (BEAKER) (test jfkq=384) 23.3 seconds 11.7-14.7 INR (BEAKER) (test czpw=911) 2.0 <=5.9 RECOMMENDED COUMADIN/WARFARIN INR THERAPY RANGESSTANDARD DOSE: 2.0 - 3.0 Includes: PROPHYLAXIS forvenous thrombosis, systemic embolization; TREATMENT for venous thrombosis and/or pulmonary embolus.HIGH RISK: Target INR is 2.5-3.5 for patients with mechanical heart valves.CBC (HEMOGRAM ONLY)2018-12-27 06:28:00 Test Item Value Reference Range Comments WHITE BLOOD CELL COUNT (BEAKER) (test oxgr=522) 7.1 K/ L 3.5-10.5 RED BLOOD CELL COUNT (BEAKER) (test ckhv=453) 2.16 M/ L 4.63-6.08 HEMOGLOBIN (BEAKER) (test abhw=100) 6.9 GM/DL 13.7-17.5 HEMATOCRIT (BEAKER) (test cedi=415) 22.5 % 40.1-51.0 MEAN CORPUSCULAR VOLUME (BEAKER) (test sura=737) 104.2 fL 79.0-92.2 MEAN CORPUSCULAR HEMOGLOBIN (BEAKER) (test 31.9 pg 25.7-32.2 nebn=715) MEAN CORPUSCULAR HEMOGLOBIN CONC (BEAKER) (test 30.7 GM/DL 32.3-36.5 geak=947) RED CELL DISTRIBUTION WIDTH (BEAKER) (test 15.0 % 11.6-14.4 ufci=551) PLATELET COUNT (BEAKER) (test sxee=983) 90 K/CU MM 150-450 MEAN PLATELET VOLUME (BEAKER) (test jjas=786) 9.1 fL 9.4-12.4 NUCLEATED RED BLOOD CELLS (BEAKER) (test 0 /100 WBC 0-0 vqiu=803) POCT-GLUCOSE [id number] 23:54:00 Test Item Value Reference Range Comments POC-GLUCOSE METER (BEAKER) 73 mg/dL 70-110 TESTED AT [address] (test fzxy=5316) [facility] [address] POCT-GLUCOSE [id number] 16:02:00 Test Item Value Reference Range Comments POC-GLUCOSE METER (BEAKER) 108 mg/dL 70-110 TESTED AT [address] (test rwqx=8413) [facility] [address] POCT-GLUCOSE [id number] 15:24:00 Test Item Value Reference Range Comments POC-GLUCOSE METER (BEAKER) 74 mg/dL 70-110 TESTED AT [address] (test sgaz=4515) [place] [id number] POCT-GLUCOSE [id number] 10:29:00 Test Item Value Reference Range Comments POC-GLUCOSE METER (BEAKER) 88 mg/dL 70-110 TESTED AT [address] (test fhut=1388) [facility] [address] RAD, CHEST, 1 VIEW, NON [id number] 07:33:00Reason for exam:->Post opShould this be performed [...] No significant change. Signed: Sarah Beth Mejia MDReport Verified Date/Time: 2018 07:33:38 Reading Location: [facility] Radiology Reading Room BASIC METABOLIC [id number] 06:42:00 Test Item Value Reference Range Comments SODIUM (BEAKER) (test 137 meq/L 136-145 vjxv=189) POTASSIUM (BEAKER) (test 3.9 meq/L 3.5-5.1 ctay=064) CHLORIDE (BEAKER) (test 98 meq/L 98-107 pfqx=070) CO2 (BEAKER) (test 34 meq/L 22-29 ltmr=692) BLOOD UREA NITROGEN 12 mg/dL 7-21 (BEAKER) (test jatf=984) CREATININE (BEAKER) (test 3.18 mg/dL 0.57-1.25 gvfe=839) GLUCOSE RANDOM (BEAKER) 89 mg/dL 70-105 (test kyyk=267) CALCIUM (BEAKER) (test 8.9 mg/dL 8.4-10.2 tutr=022) EGFR (BEAKER) (test 24 mL/min/1.73 sq m ESTIMATED GFR IS NOT wksp=3872) ACCURATE CREATININE CLEARANCE IN PREDICTING GLOMERULAR FILTRATION RATE. ESTIMATED GFR IS NOT APPLICABLE FOR DIALYSIS PATIENTS. CBC (HEMOGRAM ONLY)2018-12-26 06:05:00 Test Item Value Reference Range Comments WHITE BLOOD CELL COUNT (BEAKER) (test euyy=042) 6.3 K/ L 3.5-10.5 RED BLOOD CELL COUNT (BEAKER) (test nsyy=582) 2.25 M/ L 4.63-6.08 HEMOGLOBIN (BEAKER) (test awoq=601) 7.4 GM/DL 13.7-17.5 HEMATOCRIT (BEAKER) (test zhuo=216) 23.1 % 40.1-51.0 MEAN CORPUSCULAR VOLUME (BEAKER) (test exdu=071) 102.7 fL 79.0-92.2 MEAN CORPUSCULAR HEMOGLOBIN (BEAKER) (test 32.9 pg 25.7-32.2 surx=173) MEAN CORPUSCULAR HEMOGLOBIN CONC (BEAKER) (test 32.0 GM/DL 32.3-36.5 yhvj=589) RED CELL DISTRIBUTION WIDTH (BEAKER) (test 15.0 % 11.6-14.4 vjrm=268) PLATELET COUNT (BEAKER) (test eeug=006) 84 K/CU MM 150-450 MEAN PLATELET VOLUME (BEAKER) (test mdbb=529) 8.6 fL 9.4-12.4 NUCLEATED RED BLOOD CELLS (BEAKER) (test 1 /100 WBC 0-0 hgqm=486) PROTHROMBIN TIME/[id number] 05:44:00 Test Item Value Reference Range Comments PROTIME (BEAKER) (test tsqp=928) 24.4 seconds 11.7-14.7 INR (BEAKER) (test cvya=787) 2.2 <=5.9 RECOMMENDED COUMADIN/WARFARIN INR THERAPY RANGESSTANDARD DOSE: 2.0 - 3.0 Includes: PROPHYLAXIS forvenous thrombosis, systemic embolization; TREATMENT for venous thrombosis and/or pulmonary embolus.HIGH RISK: Target INR is 2.5-3.5 for patients with mechanical heart valves.POCT-GLUCOSE [id number] 00:06:00 Test Item Value Reference Range Comments POC-GLUCOSE METER (BEAKER) 88 mg/dL 70-110 TESTED AT [facility] [address] [facility] (test lisq=0976) [facility] [address] POCT-GLUCOSE [id number] 19:06:00 Test Item Value Reference Range Comments POC-GLUCOSE METER (BEAKER) 121 mg/dL 70-110 TESTED AT [address] (test gkkd=7596) [facility] [id number] PROTHROMBIN [id number] 16:10:00 Test Item Value Reference Range Comments PROTIME (BEAKER) (test ohpz=619) 30.1 seconds 11.7-14.7 INR (BEAKER) (test yijh=590) 2.9 <=5.9 RECOMMENDED COUMADIN/WARFARIN INR THERAPY RANGESSTANDARD DOSE: 2.0 - 3.0 Includes: PROPHYLAXIS forvenous thrombosis, systemic embolization; TREATMENT for venous thrombosis and/or pulmonary embolus.HIGH RISK: Target INR is 2.5-3.5 for patients with mechanical heart valves.BASIC METABOLIC [id number] 16:10: 00 Test Item Value Reference Range Comments SODIUM (BEAKER) (test 128 meq/L 136-145 dlrq=805) POTASSIUM (BEAKER) (test 4.9 meq/L 3.5-5.1 wylc=572) CHLORIDE (BEAKER) (test 92 meq/L 98-107 fenp=416) CO2 (BEAKER) (test 27 meq/L 22-29 qgmp=134) BLOOD UREA NITROGEN 37 mg/dL 7-21 (BEAKER) (test btom=489) CREATININE (BEAKER) (test 5.70 mg/dL 0.57-1.25 piha=809) GLUCOSE RANDOM (BEAKER) 108 mg/dL 70-105 (test sibg=076) CALCIUM (BEAKER) (test 8.8 mg/dL 8.4-10.2 vnhg=090) EGFR (BEAKER) (test 12 mL/min/1.73 sq m ESTIMATED GFR IS NOT rhsf=2404) ACCURATE CREATININE CLEARANCE IN PREDICTING GLOMERULAR FILTRATION RATE. ESTIMATED GFR IS NOT APPLICABLE FOR DIALYSIS PATIENTS. [id number] 16:09:00 Test Item Value Reference Range Comments MAGNESIUM (BEAKER) (test zivd=201) 1.7 mg/dL 1.6-2.6 CBC (HEMOGRAM ONLY)2018-12-25 16:01:00 Test Item Value Reference Range Comments WHITE BLOOD CELL COUNT (BEAKER) (test auxk=273) 6.0 K/ L 3.5-10.5 RED BLOOD CELL COUNT (BEAKER) (test fltc=984) 2.35 M/ L 4.63-6.08 HEMOGLOBIN (BEAKER) (test asrp=738) 7.7 GM/DL 13.7-17.5 HEMATOCRIT (BEAKER) (test ltqm=962) 23.7 % 40.1-51.0 MEAN CORPUSCULAR VOLUME (BEAKER) (test xeyf=388) 100.9 fL 79.0-92.2 MEAN CORPUSCULAR HEMOGLOBIN (BEAKER) (test 32.8 pg 25.7-32.2 jzla=905) MEAN CORPUSCULAR HEMOGLOBIN CONC (BEAKER) (test 32.5 GM/DL 32.3-36.5 ocke=655) RED CELL DISTRIBUTION WIDTH (BEAKER) (test 14.7 % 11.6-14.4 bxvf=608) PLATELET COUNT (BEAKER) (test urnm=767) 90 K/CU MM 150-450 MEAN PLATELET VOLUME (BEAKER) (test xxgq=754) 9.4 fL 9.4-12.4 NUCLEATED RED BLOOD CELLS (BEAKER) (test 1 /100 WBC 0-0 isdu=427) POCT-GLUCOSE [id number] 08:03:00 Test Item Value Reference Range Comments POC-GLUCOSE METER (BEAKER) 89 mg/dL 70-110 TESTED AT [facility] [address] [facility] [facility] (test busy=2158) [place] [address] RAD, CHEST, 1 VIEW, NON [id number] 07:46:00Reason for exam:->Post opShould this be performed at the bedside?->YesFINAL REPORT Chest one view. Clinical history: Post op Comparison: 2018Discussion: A frontal chest is provided. Cardiomediastinal contours are unchanged. Stable appearance of pleural-parenchymal opacity at the right mid to lower lung. There is a tiny right apical pneumothorax, unchanged. Probable trace left effusion. Signed: Dionicio Chery Verified Date/Time: 07:46:01 Reading Location: [facility] Radiology Reading Room RAD, ABDOMEN/KUB , 1 VIEW [id number] 07:25:00Reason for exam:->abdominal distentionShould this be performed [...] Chery Verified Date/Time: 12/25/2018 07:25:40 Reading Location: [facility] Radiology Reading Room POCT-GLUCOSE [id number] 22 :06:00 Test Item Value Reference Range Comments POC-GLUCOSE METER (BEAKER) 102 mg/dL 70-110 TESTED AT [address] (test mtem=2637) [facility] [address] POCT-GLUCOSE [id number] 18:44:00 Test Item Value Reference Range Comments POC-GLUCOSE METER (BEAKER) 100 mg/dL 70-110 TESTED AT [address] (test uzhq=2245) [facility] [address] POCT-GLUCOSE [id number] 14:54:00 Test Item Value Reference Range Comments POC-GLUCOSE METER (BEAKER) 103 mg/dL 70-110 TESTED AT [address] (test xxhh=3765) [facility] [address] [id number] 08:07:00 Test Item Value Reference Range Comments FERRITIN (BEAKER) (test iwvs=814) 2044 ng/mL 5-275 POCT-GLUCOSE [id number] 07:57:00 Test Item Value Reference Range Comments POC-GLUCOSE METER (BEAKER) 76 mg/dL 70-110 TESTED AT [facility] [address] (test bggz=5239) [place] [address] RAD, CHEST, 1 VIEW, NON [id number] 07:57:00Reason for exam:->Post opShould this be performed [...] MDReport Verified Date/Time: 12/24/2018 07:57:06 Reading Location: [facility] Radiology Reading Room CBC (HEMOGRAM ONLY) 07:23:00 Test Item Value Reference Range Comments WHITE BLOOD CELL COUNT (BEAKER) (test jnvu=938) 5.2 K/ L 3.5-10.5 RED BLOOD CELL COUNT (BEAKER) (test dwcu=622) 2.35 M/ L 4.63-6.08 HEMOGLOBIN (BEAKER) (test httg=009) 7.6 GM/DL 13.7-17.5 HEMATOCRIT (BEAKER) (test rybe=518) 24.6 % 40.1-51.0 MEAN CORPUSCULAR VOLUME (BEAKER) (test ncic=472) 104.7 fL 79.0-92.2 MEAN CORPUSCULAR HEMOGLOBIN (BEAKER) (test 32.3 pg 25.7-32.2 navg=301) MEAN CORPUSCULAR HEMOGLOBIN CONC (BEAKER) (test 30.9 GM/DL 32.3-36.5 fiua=780) RED CELL DISTRIBUTION WIDTH (BEAKER) (test 14.8 % 11.6-14.4 fakj=293) PLATELET COUNT (BEAKER) (test qgsa=409) 78 K/CU MM 150-450 MEAN PLATELET VOLUME (BEAKER) (test ldlt=262) 9.8 fL 9.4-12.4 NUCLEATED RED BLOOD CELLS (BEAKER) (test 1 /100 WBC 0-0 kwag=395) BASIC METABOLIC [id number] 07:14:00 Test Item Value Reference Range Comments SODIUM (BEAKER) (test 131 meq/L 136-145 jukp=346) POTASSIUM (BEAKER) (test 4.9 meq/L 3.5-5.1 gebj=003) CHLORIDE (BEAKER) (test 93 meq/L 98-107 phki=527) CO2 (BEAKER) (test 34 meq/L 22-29 fkoe=232) BLOOD UREA NITROGEN 24 mg/dL 7-21 (BEAKER) (test iivs=281) CREATININE (BEAKER) (test 4.11 mg/dL 0.57-1.25 dfov=489) GLUCOSE RANDOM (BEAKER) 94 mg/dL 70-105 (test gbcl=230) CALCIUM (BEAKER) (test 8.8 mg/dL 8.4-10.2 gwzn=462) EGFR (BEAKER) (test 18 mL/min/1.73 sq m ESTIMATED GFR IS NOT hsuj=2412) ACCURATE CREATININE CLEARANCE IN PREDICTING GLOMERULAR FILTRATION RATE. ESTIMATED GFR IS NOT APPLICABLE FOR DIALYSIS PATIENTS. [id number] 07:08:00 Test Item Value Reference Range Comments MAGNESIUM (BEAKER) (test aqcz=769) 1.8 mg/dL 1.6-2.6 IRON, TIBC, % SAT. (WITHOUT FERRITIN)2018-12-24 07:07:00 Test Item Value Reference Range Comments IRON (BEAKER) (test duaf=295) 35.0 ug/dL 40.0-160.0 TOTAL IRON BINDING CAPACITY (BEAKER) (test 150 ug/dL 250-450 wavh=313) IRON % SATURATION (2) (BEAKER) (test poaj=5162) 23 % 20-55 PROTHROMBIN [id number] 07:05:00 Test Item Value Reference Range Comments PROTIME (BEAKER) (test woop=905) 38.7 seconds 11.7-14.7 INR (BEAKER) (test ksvt=867) 3.9 <=5.9 RECOMMENDED COUMADIN/WARFARIN INR THERAPY RANGESSTANDARD DOSE: 2.0 - 3.0 Includes: PROPHYLAXIS forvenous thrombosis, systemic embolization; TREATMENT for venous thrombosis and/or pulmonary embolus.HIGH RISK: Target INR is 2.5-3.5 for patients with mechanical heart valves.POCT-GLUCOSE [id number] 00:26:00 Test Item Value Reference Range Comments POC-GLUCOSE METER (BEAKER) 86 mg/dL 70-110 TESTED AT [address] (test juci=8751) [place] [address] POCT-GLUCOSE [id number] 00:26:00 Test Item Value Reference Range Comments POC-GLUCOSE METER (BEAKER) 137 mg/dL 70-110 TESTED AT [address] (test ywyn=2112) [place] [address] POCT-GLUCOSE [id number] 16:07:00 Test Item Value Reference Range Comments POC-GLUCOSE METER (BEAKER) 72 mg/dL 70-110 TESTED AT [address] (test tnra=7461) [place] [address] POCT-GLUCOSE [id number] 16:07:00 Test Item Value Reference Range Comments POC-GLUCOSE METER (BEAKER) 61 mg/dL 70-110 TESTED AT [address] (test uctk=9359) [place] [address] POCT-GLUCOSE [id number] 11:27:00 Test Item Value Reference Range Comments POC-GLUCOSE METER (BEAKER) 82 mg/dL 70-110 TESTED AT [address] (test bkhh=9675) [place] [address] POCT-GLUCOSE [id number] 10:32:00 Test Item Value Reference Range Comments POC-GLUCOSE METER (BEAKER) 43 mg/dL 70-110 TESTED AT [address] (test qmlf=5566) [place] [address] BASIC METABOLIC [id number] 07:28:00 Test Item Value Reference Range Comments SODIUM (BEAKER) (test 132 meq/L 136-145 phqa=333) POTASSIUM (BEAKER) (test 5.4 meq/L 3.5-5.1 Specimen slightly ynha=354) hemolyzed CHLORIDE (BEAKER) (test 95 meq/L 98-107 pldz=684) CO2 (BEAKER) (test 24 meq/L 22-29 vaez=493) BLOOD UREA NITROGEN 52 mg/dL 7-21 (BEAKER) (test taun=860) CREATININE (BEAKER) (test 5.91 mg/dL 0.57-1.25 Specimen slightly ajnb=520) hemolyzed GLUCOSE RANDOM (BEAKER) 49 mg/dL 70-105 (test ptgp=329) CALCIUM (BEAKER) (test 9.1 mg/dL 8.4-10.2 ntoa=609) EGFR (BEAKER) (test 12 mL/min/1.73 sq m ESTIMATED GFR IS NOT ddep=1393) ACCURATE CREATININE CLEARANCE IN PREDICTING GLOMERULAR FILTRATION RATE. ESTIMATED GFR IS NOT APPLICABLE FOR DIALYSIS PATIENTS. [id number] 07:24:00 Test Item Value Reference Range Comments MAGNESIUM (BEAKER) (test 2.0 mg/dL 1.6-2.6 Specimen slightly hemolyzed zzgi=822) [id number] 07:24:00 Test Item Value Reference Range Comments PHOSPHORUS (BEAKER) (test 4.4 mg/dL 2.3-4.7 Specimen slightly hemolyzed hqzi=048) PROTHROMBIN [id number] 07:20:00 Test Item Value Reference Range Comments PROTIME (BEAKER) (test iitv=869) 57.8 seconds 11.7-14.7 INR (BEAKER) (test xdjr=696) 6.8 <=5.9 RECOMMENDED COUMADIN/WARFARIN INR THERAPY RANGESSTANDARD DOSE: 2.0 - 3.0 Includes: PROPHYLAXIS forvenous thrombosis, systemic embolization; TREATMENT for venous thrombosis and/or pulmonary embolus.HIGH RISK: Target INR is 2.5-3.5 for patients with mechanical heart valves.While on warfarin.CBC (HEMOGRAM ONLY) 2018-12-23 07:01:00 Test Item Value Reference Range Comments WHITE BLOOD CELL COUNT (BEAKER) (test uvvw=053) 4.6 K/ L 3.5-10.5 RED BLOOD CELL COUNT (BEAKER) (test efhy=293) 2.49 M/ L 4.63-6.08 HEMOGLOBIN (BEAKER) (test elyj=278) 8.2 GM/DL 13.7-17.5 HEMATOCRIT (BEAKER) (test tnfb=317) 25.8 % 40.1-51.0 MEAN CORPUSCULAR VOLUME (BEAKER) (test riml=140) 103.6 fL 79.0-92.2 MEAN CORPUSCULAR HEMOGLOBIN (BEAKER) (test 32.9 pg 25.7-32.2 fbvq=262) MEAN CORPUSCULAR HEMOGLOBIN CONC (BEAKER) (test 31.8 GM/DL 32.3-36.5 wmmv=640) RED CELL DISTRIBUTION WIDTH (BEAKER) (test 15.0 % 11.6-14.4 sicu=679) PLATELET COUNT (BEAKER) (test dxym=022) 79 K/CU MM 150-450 MEAN PLATELET VOLUME (BEAKER) (test hguv=777) 9.6 fL 9.4-12.4 NUCLEATED RED BLOOD CELLS (BEAKER) (test 1 /100 WBC 0-0 tort=178) RAD, CHEST, 1 VIEW, NON [id number] 04:22:00Reason for exam:->Post opShould this be performed [...] MDReport Verified Date/Time: 12/23/2018 04:22:43 Reading Location: [facility] B1 C013Y CT Body Reading Room POCT-GLUCOSE [id number] 03:01:00 Test Item Value Reference Range Comments POC-GLUCOSE METER (BEAKER) 85 mg/dL 70-110 TESTED AT [facility] [address] [facility] (test yoyq=7821) [facility] [address] BASIC METABOLIC [id number] 18:52:00 Test Item Value Reference Range Comments SODIUM (BEAKER) (test 133 meq/L 136-145 hiwm=631) POTASSIUM (BEAKER) (test 5.2 meq/L 3.5-5.1 Specimen slightly hmox=786) hemolyzed CHLORIDE (BEAKER) (test 94 meq/L 98-107 yrwj=048) CO2 (BEAKER) (test 26 meq/L 22-29 xhdz=713) BLOOD UREA NITROGEN 43 mg/dL 7-21 (BEAKER) (test ucpd=873) CREATININE (BEAKER) (test 5.20 mg/dL 0.57-1.25 Specimen slightly jfic=385) hemolyzed GLUCOSE RANDOM (BEAKER) 66 mg/dL 70-105 (test qkdi=361) CALCIUM (BEAKER) (test 9.5 mg/dL 8.4-10.2 sbce=235) EGFR (BEAKER) (test 14 mL/min/1.73 sq m ESTIMATED GFR IS NOT nnzz=4879) ACCURATE CREATININE CLEARANCE IN PREDICTING GLOMERULAR FILTRATION RATE. ESTIMATED GFR IS NOT APPLICABLE FOR DIALYSIS PATIENTS. CBC (HEMOGRAM ONLY)2018-12-22 17:50:00 Test Item Value Reference Range Comments WHITE BLOOD CELL COUNT (BEAKER) (test nmnu=576) 4.8 K/ L 3.5-10.5 RED BLOOD CELL COUNT (BEAKER) (test iqqn=745) 2.88 M/ L 4.63-6.08 HEMOGLOBIN (BEAKER) (test yndu=396) 9.4 GM/DL 13.7-17.5 HEMATOCRIT (BEAKER) (test jxsp=023) 30.2 % 40.1-51.0 MEAN CORPUSCULAR VOLUME (BEAKER) (test kaab=847) 104.9 fL 79.0-92.2 MEAN CORPUSCULAR HEMOGLOBIN (BEAKER) (test 32.6 pg 25.7-32.2 kyzq=579) MEAN CORPUSCULAR HEMOGLOBIN CONC (BEAKER) (test 31.1 GM/DL 32.3-36.5 hojg=442) RED CELL DISTRIBUTION WIDTH (BEAKER) (test 15.1 % 11.6-14.4 zkuk=048) PLATELET COUNT (BEAKER) (test mkra=368) 115 K/CU MM 150-450 MEAN PLATELET VOLUME (BEAKER) (test mcrc=993) 9.9 fL 9.4-12.4 NUCLEATED RED BLOOD CELLS (BEAKER) (test 1 /100 WBC 0-0 pszg=794) ANAEROBIC [id number] 17:00:00 Test Item Value Reference Range Comments CULTURE (BEAKER) (test ieac=8886) No anaerobes isolated RAD, CHEST, 1 VIEW, NON [id number] 07:44:00Reason for exam:->Post opShould this be performed [...] Arteaga Verified Date/Time: 2018 07:44:12 Reading Location: [facility] Radiology Reading Room PROTHROMBIN [id number] 04:31:00 Test Item Value Reference Range Comments PROTIME (BEAKER) (test sxhn=286) 63.0 seconds 11.7-14.7 INR (BEAKER) (test jdim=083) 7.6 <=5.9 RECOMMENDED COUMADIN/WARFARIN INR THERAPY RANGESSTANDARD DOSE: 2.0 - 3.0 Includes: PROPHYLAXIS forvenous thrombosis, systemic embolization; TREATMENT for venous thrombosis and/or pulmonary embolus.HIGH RISK: Target INR is 2.5-3.5 for patients with mechanical heart valves.While on warfarin.POCT-GLUCOSE [id number] 22:29:00 Test Item Value Reference Range Comments POC-GLUCOSE METER (BEAKER) 141 mg/dL 70-110 TESTED AT [facility] [address] [facility] (test owsw=3741) [facility] [address] POCT-GLUCOSE [id number] 13:22:00 Test Item Value Reference Range Comments POC-GLUCOSE METER (BEAKER) 100 mg/dL 70-110 TESTED AT [address] (test gife=4671) [facility] [address] RAD, CHEST, 1 VIEW, NON [id number] 08:01:00Reason for exam:->Post opShould this be performed [...] Lisa Verified Date/Time: 12/21/2018 08:01:46 Reading Location: [address] Neuro Reading Room 08: 01 AMPROTHROMBIN TIME/[id number] 05:30:00 Test Item Value Reference Range Comments PROTIME (BEAKER) (test dddb=067) 39.1 seconds 11.7-14.7 INR (BEAKER) (test jlhb=446) 4.0 <=5.9 RECOMMENDED COUMADIN/WARFARIN INR THERAPY RANGESSTANDARD DOSE: 2.0 - 3.0 Includes: PROPHYLAXIS forvenous thrombosis, systemic embolization; TREATMENT for venous thrombosis and/or pulmonary embolus.HIGH RISK: Target INR is 2.5-3.5 for patients with mechanical heart valves.While on warfarin.POCT-GLUCOSE [id number] 22:10:00 Test Item Value Reference Range Comments POC-GLUCOSE METER (BEAKER) 98 mg/dL 70-110 TESTED AT [address] (test ozdz=3886) [facility] [address] POCT-GLUCOSE [id number] 17:40:00 Test Item Value Reference Range Comments POC-GLUCOSE METER (BEAKER) 91 mg/dL 70-110 TESTED AT [address] (test kfxs=3478) [place] [id number] POCT-GLUCOSE [id number] 13:13:00 Test Item Value Reference Range Comments POC-GLUCOSE METER (BEAKER) 73 mg/dL 70-110 TESTED AT [facility] [address] (test auyo=6923) [facility] [address] SURGICALLY OBTAINED CULTURE + GRAM [id number] 08:41:00 Test Item Value Reference Range Comments CULTURE (BEAKER) (test yyxb=7464) No growth GRAM STAIN RESULT (BEAKER) (test No White blood cells seen gxvr=5998) GRAM STAIN RESULT (BEAKER) (test No organisms seen vbaz=32659) RAD, CHEST, 1 VIEW, NON [id number] 08:20:00Reason for exam:->Post opShould this be performed [...] findings: None. Signed: Radha Lisa Verified Date/Time: 12/20/2018 08:20:58 Reading Location: [address] Neuro Reading Room 08: 20 AMBASIC METABOLIC [id number] 08:09:00 Test Item Value Reference Range Comments SODIUM (BEAKER) (test 132 meq/L 136-145 aqot=885) POTASSIUM (BEAKER) (test 4.6 meq/L 3.5-5.1 dczd=152) CHLORIDE (BEAKER) (test 95 meq/L 98-107 mqec=162) CO2 (BEAKER) (test 28 meq/L 22-29 ybfw=615) BLOOD UREA NITROGEN 35 mg/dL 7-21 (BEAKER) (test xljn=678) CREATININE (BEAKER) (test 4.94 mg/dL 0.57-1.25 rmbq=990) GLUCOSE RANDOM (BEAKER) 122 mg/dL 70-105 (test nrdu=942) CALCIUM (BEAKER) (test 9.2 mg/dL 8.4-10.2 drbf=716) EGFR (BEAKER) (test 15 mL/min/1.73 sq m ESTIMATED GFR IS NOT dqmk=0366) ACCURATE CREATININE CLEARANCE IN PREDICTING GLOMERULAR FILTRATION RATE. ESTIMATED GFR IS NOT APPLICABLE FOR DIALYSIS PATIENTS. [id number] 08:00:00 Test Item Value Reference Range Comments PHOSPHORUS (BEAKER) (test ddht=963) 4.5 mg/dL 2.3-4.7 CALCIUM, [id number] 07:20:00 Test Item Value Reference Range Comments CALCIUM IONIZED (BEAKER) (test rkwq=408) 1.04 mmol/L 1.12-1.27 PH, BLOOD (BEAKER) (test repr=6015) 7.35 PROTHROMBIN [id number] 07:04:00 Test Item Value Reference Range Comments PROTIME (BEAKER) (test husb=363) 21.1 seconds 11.7-14.7 INR (BEAKER) (test xell=630) 1.8 <=5.9 RECOMMENDED COUMADIN/WARFARIN INR THERAPY RANGESSTANDARD DOSE: 2.0 - 3.0 Includes: PROPHYLAXIS forvenous thrombosis, systemic embolization; TREATMENT for venous thrombosis and/or pulmonary embolus.HIGH RISK: Target INR is 2.5-3.5 for patients with mechanical heart valves.While on warfarin.CBC (HEMOGRAM ONLY) 2018-12-20 06:55:00 Test Item Value Reference Range Comments WHITE BLOOD CELL COUNT (BEAKER) (test nryg=513) 9.4 K/ L 3.5-10.5 RED BLOOD CELL COUNT (BEAKER) (test rjzw=656) 2.65 M/ L 4.63-6.08 HEMOGLOBIN (BEAKER) (test drjh=567) 8.8 GM/DL 13.7-17.5 HEMATOCRIT (BEAKER) (test msoy=771) 27.5 % 40.1-51.0 MEAN CORPUSCULAR VOLUME (BEAKER) (test gqjr=561) 103.8 fL 79.0-92.2 MEAN CORPUSCULAR HEMOGLOBIN (BEAKER) (test 33.2 pg 25.7-32.2 ajas=183) MEAN CORPUSCULAR HEMOGLOBIN CONC (BEAKER) (test 32.0 GM/DL 32.3-36.5 ealg=564) RED CELL DISTRIBUTION WIDTH (BEAKER) (test 15.4 % 11.6-14.4 sbzq=453) PLATELET COUNT (BEAKER) (test hvad=711) 118 K/CU MM 150-450 MEAN PLATELET VOLUME (BEAKER) (test ourg=023) 9.7 fL 9.4-12.4 NUCLEATED RED BLOOD CELLS (BEAKER) (test 0 /100 WBC 0-0 lsqz=744) POCT-GLUCOSE [id number] 22:00:00 Test Item Value Reference Range Comments POC-GLUCOSE METER (BEAKER) 188 mg/dL 70-110 TESTED AT [address] (test ohzm=0399) [place] [address] TISSUE [id number] 18:15:00Surgical Pathology Report Case: [id number] Authorizing Provider: Moiz Vargas, Collected: 12/17/2018 0950 OrderingLocation: [facility] Received: 2018 1129 PERIOPERATIVE SERVICES Pathologist: Kwan Perla MD Specimen: Pleural, Right, RIGHT PLEURAL PEEL PLEURA, RIGHT, DECORTICATION - MILD CHRONIC INFLAMMATION AND GRANULATION TISSUE- ORGANIZING BLOOD CLOTS- NO MALIGNANT CELLS IDENTIFIED Signing Pathologist Direct Phone Line: Correlation with microbiology cultures is recommended.[id number] effusion and other conditions classified elsewhereRight pleural peelThe specimen is received in a formalin-filled container labeled with the patient's information and labeled "right pleural peel" and consists of multiple fragments of porter-red, dusky, firm tissue measuring 6 x 5 x 0.4 cm in aggregate. Sales/Marketing sections are submitted in A1-A3. CG/ew Performed.POCT-GLUCOSE [id number] 17 :11:00 Test Item Value Reference Range Comments POC-GLUCOSE METER (BEAKER) 126 mg/dL 70-110 TESTED AT [place] [id number] [facility] (test omtn=3576) [place] [address] POCT-GLUCOSE [id number] 12:57:00 Test Item Value Reference Range Comments POC-GLUCOSE METER (BEAKER) 143 mg/dL 70-110 TESTED AT [facility] [address] [facility] (test pvun=7558) [facility] [address] POCT-GLUCOSE [id number] 07:27:00 Test Item Value Reference Range Comments POC-GLUCOSE METER (BEAKER) 141 mg/dL 70-110 TESTED AT [facility] [address] [facility] (test ryjv=9138) [facility] [address] CALCIUM, [id number] 06:29:00 Test Item Value Reference Range Comments CALCIUM IONIZED (BEAKER) (test fech=477) 1.00 mmol/L 1.12-1.27 PH, BLOOD (BEAKER) (test cyba=5299) 7.45 RAD, CHEST, 1 VIEW, NON [id number] 04:54:00Reason for exam:->Post opShould this be performed [...] There are median sternotomy wires. Signed: [facility] Verified Date/ Time: 12/19/2018 04:54:49 Reading Location: [facility] B1 C013Y CT Body Reading Room BASIC METABOLIC [id number] 04:19:00 Test Item Value Reference Range Comments SODIUM (BEAKER) (test 132 meq/L 136-145 clqm=335) POTASSIUM (BEAKER) (test 4.0 meq/L 3.5-5.1 rcbn=290) CHLORIDE (BEAKER) (test 96 meq/L 98-107 cgfs=595) CO2 (BEAKER) (test 28 meq/L 22-29 cwza=109) BLOOD UREA NITROGEN 18 mg/dL 7-21 (BEAKER) (test uaav=826) CREATININE (BEAKER) (test 3.49 mg/dL 0.57-1.25 wtdu=087) GLUCOSE RANDOM (BEAKER) 139 mg/dL 70-105 (test taaw=261) CALCIUM (BEAKER) (test 8.9 mg/dL 8.4-10.2 wxkm=779) EGFR (BEAKER) (test 22 mL/min/1.73 sq m ESTIMATED GFR IS NOT mwjh=5019) ACCURATE CREATININE CLEARANCE IN PREDICTING GLOMERULAR FILTRATION RATE. ESTIMATED GFR IS NOT APPLICABLE FOR DIALYSIS PATIENTS. [id number] 04:16:00 Test Item Value Reference Range Comments PHOSPHORUS (BEAKER) (test gpeu=239) 3.4 mg/dL 2.3-4.7 PROTHROMBIN [id number] 04:06:00 Test Item Value Reference Range Comments PROTIME (BEAKER) (test tfrx=505) 20.9 seconds 11.7-14.7 INR (BEAKER) (test myxr=476) 1.8 <=5.9 RECOMMENDED COUMADIN/WARFARIN INR THERAPY RANGESSTANDARD DOSE: 2.0 - 3.0 Includes: PROPHYLAXIS forvenous thrombosis, systemic embolization; TREATMENT for venous thrombosis and/or pulmonary embolus.HIGH RISK: Target INR is 2.5-3.5 for patients with mechanical heart valves.CBC (HEMOGRAM ONLY)2018-12-19 03:56:00 Test Item Value Reference Range Comments WHITE BLOOD CELL COUNT (BEAKER) (test hcyz=702) 9.7 K/ L 3.5-10.5 RED BLOOD CELL COUNT (BEAKER) (test wvnu=719) 2.56 M/ L 4.63-6.08 HEMOGLOBIN (BEAKER) (test fait=182) 8.5 GM/DL 13.7-17.5 HEMATOCRIT (BEAKER) (test mlyr=331) 26.3 % 40.1-51.0 MEAN CORPUSCULAR VOLUME (BEAKER) (test jqrf=647) 102.7 fL 79.0-92.2 MEAN CORPUSCULAR HEMOGLOBIN (BEAKER) (test 33.2 pg 25.7-32.2 ryal=594) MEAN CORPUSCULAR HEMOGLOBIN CONC (BEAKER) (test 32.3 GM/DL 32.3-36.5 tcjd=316) RED CELL DISTRIBUTION WIDTH (BEAKER) (test 15.7 % 11.6-14.4 xfff=934) PLATELET COUNT (BEAKER) (test ujzq=069) 114 K/CU MM 150-450 MEAN PLATELET VOLUME (BEAKER) (test kcpe=054) 9.8 fL 9.4-12.4 NUCLEATED RED BLOOD CELLS (BEAKER) (test 0 /100 WBC 0-0 rjok=951) POCT-GLUCOSE [id number] 22:11:00 Test Item Value Reference Range Comments POC-GLUCOSE METER (BEAKER) 149 mg/dL 70-110 TESTED AT [address] (test agrx=1979) [place] [address] POCT-GLUCOSE [id number] 17:52:00 Test Item Value Reference Range Comments POC-GLUCOSE METER (BEAKER) 122 mg/dL 70-110 TESTED AT [address] (test gxka=4654) [place] [address] POCT-GLUCOSE [id number] 14:26:00 Test Item Value Reference Range Comments POC-GLUCOSE METER (BEAKER) 98 mg/dL 70-110 TESTED AT [address] (test fezf=6052) [place] [address] HEMOGLOBIN AND [id number] 12:47:00 Test Item Value Reference Range Comments HEMOGLOBIN (BEAKER) (test edll=384) 9.2 GM/DL 13.7-17.5 HEMATOCRIT (BEAKER) (test hrhn=227) 28.3 % 40.1-51.0 POCT-GLUCOSE [id number] 09:38:00 Test Item Value Reference Range Comments POC-GLUCOSE METER (BEAKER) 73 mg/dL 70-110 TESTED AT [address] (test hgty=4618) [place] [id number] PROTEIN ELECTROPHORESIS, [id number] 09:21:00 Test Item Value Reference Range Comments ALBUMIN FRACTION (BEAKER) 3.2 g/dL 3.5-5.5 (test qaly=497) ALPHA 1 FRACTION (BEAKER) 0.4 g/dL 0.2-0.4 (test wkvr=397) ALPHA 2 FRACTION (BEAKER) 0.6 g/dL 0.5-0.9 (test vgcp=133) BETA FRACTION (BEAKER) (test 1.1 g/dL 0.6-1.1 ydqj=413) GAMMA GLOBULIN FRACTION 2.2 g/dL 0.7-1.7 (BEAKER) (test ettd=121) INTERPRETATION-119 (BEAKER) Mild polyclonal elevation of (test rqkj=6788) gamma fraction, suggesting component of chronic inflammation. No monoclonal bands detected. [id number] (BEAKER) Amanda De Jesus MD (test omog=4795) (electronic signature) PROTEIN TOTAL SERUM, SPEP 7.5 gm/dL 6.0-8.3 (BEAKER) (test jtta=3989) RAD, CHEST, 1 VIEW, NON [id number] 06:47:00Reason for exam:->Post opShould this be performed [...] MDReport Verified Date/Time: 12/18/2018 06:47:21 Reading Location: [facility] B1 C013Y CT Body Reading Room Electronically signed by: RAZ TAYLOR MD on 2018 06:47 [id number] 06:20:00 Test Item Value Reference Range Comments MAGNESIUM (BEAKER) (test aqct=086) 2.2 mg/dL 1.6-2.6 CALCIUM, [id number] 06:00:00 Test Item Value Reference Range Comments CALCIUM IONIZED (BEAKER) (test ymot=787) 1.09 mmol/L 1.12-1.27 PH, BLOOD (BEAKER) (test fcfo=3126) 7.34 BASIC METABOLIC [id number] 05:07:00 Test Item Value Reference Range Comments SODIUM (BEAKER) (test 136 meq/L 136-145 ypln=863) POTASSIUM (BEAKER) (test 5.0 meq/L 3.5-5.1 enjn=847) CHLORIDE (BEAKER) (test 100 meq/L 98-107 vtkz=525) CO2 (BEAKER) (test 25 meq/L 22-29 wvuo=800) BLOOD UREA NITROGEN 34 mg/dL 7-21 (BEAKER) (test oeml=866) CREATININE (BEAKER) (test 6.00 mg/dL 0.57-1.25 pafg=999) GLUCOSE RANDOM (BEAKER) 91 mg/dL 70-105 (test oxuh=874) CALCIUM (BEAKER) (test 9.1 mg/dL 8.4-10.2 etgj=938) EGFR (BEAKER) (test 12 mL/min/1.73 sq m ESTIMATED GFR IS NOT jliz=6218) ACCURATE CREATININE CLEARANCE IN PREDICTING GLOMERULAR FILTRATION RATE. ESTIMATED GFR IS NOT APPLICABLE FOR DIALYSIS PATIENTS. [id number] 04:54:00 Test Item Value Reference Range Comments PHOSPHORUS (BEAKER) (test ssuo=267) 6.3 mg/dL 2.3-4.7 HEPATIC FUNCTION [id number] 04:54:00 Test Item Value Reference Range Comments TOTAL PROTEIN (BEAKER) (test nbla=985) 6.8 gm/dL 6.0-8.3 ALBUMIN (BEAKER) (test tchg=1797) 3.1 g/dL 3.5-5.0 BILIRUBIN TOTAL (BEAKER) (test ftbd=387) 1.0 mg/dL 0.2-1.2 BILIRUBIN DIRECT (BEAKER) (test dkcu=413) 0.8 mg/dL 0.1-0.5 ALKALINE PHOSPHATASE (BEAKER) (test fwkm=373) 58 U/L 40-150 AST (SGOT) (BEAKER) (test hrje=458) 29 U/L 5-34 ALT (SGPT) (BEAKER) (test ijsr=570) 23 U/L 6-55 [id number] 04:51:00 Test Item Value Reference Range Comments PARTIAL THROMBOPLASTIN TIME (BEAKER) (test 38.6 seconds 22.5-36.0 fyuk=606) PROTHROMBIN [id number] 04:50:00 Test Item Value Reference Range Comments PROTIME (BEAKER) (test jxnc=213) 16.0 seconds 11.7-14.7 INR (BEAKER) (test jukm=554) 1.3 <=5.9 RECOMMENDED COUMADIN/WARFARIN INR THERAPY RANGESSTANDARD DOSE: 2.0 - 3.0 Includes: PROPHYLAXIS forvenous thrombosis, systemic embolization; TREATMENT for venous thrombosis and/or pulmonary embolus.HIGH RISK: Target INR is 2.5-3.5 for patients with mechanical heart valves.[id number] 04:50:00 Test Item Value Reference Range Comments FIBRINOGEN LEVEL (BEAKER) (test jesf=788) 494 mg/dl 225-434 PLATELET [id number] 04:38:00 Test Item Value Reference Range Comments PLATELET COUNT (BEAKER) (test qppl=806) 112 K/CU MM 150-450 CBC (HEMOGRAM ONLY)2018-12-18 04:38:00 Test Item Value Reference Range Comments WHITE BLOOD CELL COUNT (BEAKER) (test qdaf=177) 8.8 K/ L 3.5-10.5 RED BLOOD CELL COUNT (BEAKER) (test hlpe=445) 2.82 M/ L 4.63-6.08 HEMOGLOBIN (BEAKER) (test enzi=968) 9.2 GM/DL 13.7-17.5 HEMATOCRIT (BEAKER) (test wrci=440) 29.0 % 40.1-51.0 MEAN CORPUSCULAR VOLUME (BEAKER) (test jxwb=197) 102.8 fL 79.0-92.2 MEAN CORPUSCULAR HEMOGLOBIN (BEAKER) (test 32.6 pg 25.7-32.2 iaos=456) MEAN CORPUSCULAR HEMOGLOBIN CONC (BEAKER) (test 31.7 GM/DL 32.3-36.5 dbsz=831) RED CELL DISTRIBUTION WIDTH (BEAKER) (test 16.2 % 11.6-14.4 ialx=885) PLATELET COUNT (BEAKER) (test afww=510) 112 K/CU MM 150-450 MEAN PLATELET VOLUME (BEAKER) (test viuk=346) 9.4 fL 9.4-12.4 NUCLEATED RED BLOOD CELLS (BEAKER) (test 0 /100 WBC 0-0 uhcr=924) [id number] 18:48:00 Test Item Value Reference Range Comments MAGNESIUM (BEAKER) (test xxqk=592) 2.4 mg/dL 1.6-2.6 POCT-GLUCOSE [id number] 18:42:00 Test Item Value Reference Range Comments POC-GLUCOSE METER (BEAKER) 121 mg/dL 70-110 TESTED AT [facility] [address] [facility] (test cffa=9467) [facility] [address] HEMOGLOBIN AND [id number] 18:37:00 Test Item Value Reference Range Comments HEMOGLOBIN (BEAKER) (test jlvt=029) 10.0 GM/DL 13.7-17.5 HEMATOCRIT (BEAKER) (test buqg=995) 31.3 % 40.1-51.0 RAD, CHEST, 1 VIEW, NON [id number] 13:28:00Reason for exam:->post opShould this be performed [...] Verified Date/Time: 12/17/2018 13: 28:23 Reading Location: [facility] Reading Room BASI METABOLIC [id number] 13:03:00 Test Item Value Reference Range Comments SODIUM (BEAKER) (test 138 meq/L 136-145 qhex=481) POTASSIUM (BEAKER) (test 4.2 meq/L 3.5-5.1 pwcj=542) CHLORIDE (BEAKER) (test 103 meq/L 98-107 kgqc=598) CO2 (BEAKER) (test 27 meq/L 22-29 oolu=148) BLOOD UREA NITROGEN 28 mg/dL 7-21 (BEAKER) (test dxvh=367) CREATININE (BEAKER) (test 4.75 mg/dL 0.57-1.25 uyxr=932) GLUCOSE RANDOM (BEAKER) 118 mg/dL 70-105 (test weuw=453) CALCIUM (BEAKER) (test 8.3 mg/dL 8.4-10.2 xsjm=019) EGFR (BEAKER) (test 15 mL/min/1.73 sq m ESTIMATED GFR IS NOT mrcf=1457) ACCURATE CREATININE CLEARANCE IN PREDICTING GLOMERULAR FILTRATION RATE. ESTIMATED GFR IS NOT APPLICABLE FOR DIALYSIS PATIENTS. [id number] 12:53:00 Test Item Value Reference Range Comments PHOSPHORUS (BEAKER) (test ammb=429) 4.3 mg/dL 2.3-4.7 [id number] 12:53:00 Test Item Value Reference Range Comments MAGNESIUM (BEAKER) (test tfxk=351) 1.5 mg/dL 1.6-2.6 LACTIC ACID, [id number] 12:50:00 Test Item Value Reference Range Comments LACTATE BLOOD ARTERIAL (2) (BEAKER) (test 0.9 mmol/L 0.5-2.2 slxk=6747) CBC W/PLT COUNT & AUTO [id number] 12:47:00 Test Item Value Reference Range Comments WHITE BLOOD CELL COUNT (BEAKER) (test xprb=606) 5.0 K/ L 3.5-10.5 RED BLOOD CELL COUNT (BEAKER) (test daxe=599) 2.22 M/ L 4.63-6.08 HEMOGLOBIN (BEAKER) (test dfbz=783) 7.5 GM/DL 13.7-17.5 HEMATOCRIT (BEAKER) (test ndux=870) 23.4 % 40.1-51.0 MEAN CORPUSCULAR VOLUME (BEAKER) (test qlyy=561) 105.4 fL 79.0-92.2 MEAN CORPUSCULAR HEMOGLOBIN (BEAKER) (test 33.8 pg 25.7-32.2 hrjy=473) MEAN CORPUSCULAR HEMOGLOBIN CONC (BEAKER) (test 32.1 GM/DL 32.3-36.5 lach=520) RED CELL DISTRIBUTION WIDTH (BEAKER) (test 14.5 % 11.6-14.4 klyp=747) PLATELET COUNT (BEAKER) (test hotz=861) 127 K/CU MM 150-450 MEAN PLATELET VOLUME (BEAKER) (test gpxn=834) 9.8 fL 9.4-12.4 NUCLEATED RED BLOOD CELLS (BEAKER) (test 0 /100 WBC 0-0 nmsx=761) NEUTROPHILS RELATIVE PERCENT (BEAKER) (test 73 % noqn=850) LYMPHOCYTES RELATIVE PERCENT (BEAKER) (test 15 % unlv=850) MONOCYTES RELATIVE PERCENT (BEAKER) (test 10 % eyjw=064) EOSINOPHILS RELATIVE PERCENT (BEAKER) (test 1 % oqwk=311) BASOPHILS RELATIVE PERCENT (BEAKER) (test 0 % laho=232) NEUTROPHILS ABSOLUTE COUNT (BEAKER) (test 3.65 K/ L 1.78-5.38 zazp=247) LYMPHOCYTES ABSOLUTE COUNT (BEAKER) (test 0.73 K/ L 1.32-3.57 eroa=906) MONOCYTES ABSOLUTE COUNT (BEAKER) (test 0.50 K/ L 0.30-0.82 nuqg=254) EOSINOPHILS ABSOLUTE COUNT (BEAKER) (test 0.04 K/ L 0.04-0.54 xogl=999) BASOPHILS ABSOLUTE COUNT (BEAKER) (test 0.02 K/ L 0.01-0.08 ktmp=098) IMMATURE GRANULOCYTES-RELATIVE PERCENT (BEAKER) 1 % 0-1 (test toss=5846) CALCIUM, [id number] 12:26:00 Test Item Value Reference Range Comments CALCIUM IONIZED (BEAKER) (test sobg=287) 1.07 mmol/L 1.12-1.27 PH, BLOOD (BEAKER) (test auzh=2193) 7.38 BLOOD GAS, [id number] 12:26:00 Test Item Value Reference Range Comments PH ARTERIAL (BEAKER) (test ejvm=836) 7.39 7.35-7.45 PCO2 ARTERIAL (BEAKER) (test xnjy=697) 46 mmHg 35-45 PO2 ARTERIAL (BEAKER) (test hcbe=503) 289 mmHg 80-90 O2 SATURATION ARTERIAL (BEAKER) (test jbvd=194) 99.7 % 96.0-97.0 HCO3 ARTERIAL (BEAKER) (test odxy=342) 27 mmol/L 21-29 BASE EXCESS ARTERIAL (BEAKER) (test gjjc=209) 1.4 mmol/L -2.0-3.0 PATIENT TEMPERATURE (BEAKER) (test ejub=2422) 36.8 C FIO2 (BEAKER) (test llav=2092) 40.0 % CALCIUM, [id number] 10:25:00 Test Item Value Reference Range Comments CALCIUM IONIZED (BEAKER) (test rhcn=066) 1.09 mmol/L 1.12-1.27 PH, BLOOD (BEAKER) (test rryb=4740) 7.45 BLOOD GAS, [id number] 10:22:00 Test Item Value Reference Range Comments PH ARTERIAL (BEAKER) (test imxn=492) 7.48 7.35-7.45 PCO2 ARTERIAL (BEAKER) (test fxkd=675) 34 mmHg 35-45 PO2 ARTERIAL (BEAKER) (test crwo=756) 391 mmHg 80-90 O2 SATURATION ARTERIAL (BEAKER) (test qwke=991) 99.8 % 96.0-97.0 HCO3 ARTERIAL (BEAKER) (test oggg=057) 26 mmol/L 21-29 BASE EXCESS ARTERIAL (BEAKER) (test qoxx=706) 1.6 mmol/L -2.0-3.0 PATIENT TEMPERATURE (BEAKER) (test mlub=3736) 34.9 C FIO2 (BEAKER) (test lebo=0198) 96.0 % SODIUM NA-STAT [id number] 10:22:00 Test Item Value Reference Range Comments SODIUM (BEAKER) (test qxav=608) 133 meq/L 135-148 GLUCOSE-STAT [id number] 10:22:00 Test Item Value Reference Range Comments GLUCOSE RANDOM (BEAKER) (test iiww=126) 116 mg/dL 70-110 HGB/HCT (H&H) - STAT [id number] 10:22:00 Test Item Value Reference Range Comments HEMOGLOBIN (BEAKER) (test zxbj=881) 8.9 g/dL 13.0-16.8 HEMATOCRIT (BEAKER) (test xvdo=116) 26.0 % 40.0-50.0 POTASSIUM-STAT [id number] 10:20:00 Test Item Value Reference Range Comments POTASSIUM (BEAKER) (test rkhc=383) 4.0 meq/L 3.6-5.5 HEMOGLOBIN [id number] 09:33:00 Test Item Value Reference Range Comments HEMOGLOBIN A1C (BEAKER) (test ykrr=894) 5.9 % 4.3-6.1 BLOOD GAS, [id number] 09:27:00 Test Item Value Reference Range Comments PH ARTERIAL (BEAKER) (test bklt=231) 7.44 7.35-7.45 PCO2 ARTERIAL (BEAKER) (test aehw=769) 42 mmHg 35-45 PO2 ARTERIAL (BEAKER) (test prvu=264) 262 mmHg 80-90 O2 SATURATION ARTERIAL (BEAKER) (test ukii=675) 99.6 % 96.0-97.0 HCO3 ARTERIAL (BEAKER) (test rmhp=331) 28 mmol/L 21-29 BASE EXCESS ARTERIAL (BEAKER) (test qydb=885) 3.0 mmol/L -2.0-3.0 PATIENT TEMPERATURE (BEAKER) (test rfqb=4983) 37.0 C FIO2 (BEAKER) (test dvjg=2449) 100.0 % SODIUM NA-STAT [id number] 09:27:00 Test Item Value Reference Range Comments SODIUM (BEAKER) (test rgdb=347) 133 meq/L 135-148 HGB/HCT (H&H) - STAT [id number] 09:27:00 Test Item Value Reference Range Comments HEMOGLOBIN (BEAKER) (test thcf=298) 9.4 g/dL 13.0-16.8 HEMATOCRIT (BEAKER) (test hvjv=035) 28.0 % 40.0-50.0 GLUCOSE-STAT [id number] 09:26:00 Test Item Value Reference Range Comments GLUCOSE RANDOM (BEAKER) (test azlq=111) 97 mg/dL 70-110 POTASSIUM-STAT [id number] 09:26:00 Test Item Value Reference Range Comments POTASSIUM (BEAKER) (test uuxl=580) 3.9 meq/L 3.6-5.5 CALCIUM, [id number] 09:26:00 Test Item Value Reference Range Comments CALCIUM IONIZED (BEAKER) (test ghue=049) 1.17 mmol/L 1.12-1.27 PH, BLOOD (BEAKER) (test ejvw=7932) 7.44 BLOOD GAS, [id number] 08:32:00 Test Item Value Reference Range Comments PH ARTERIAL (BEAKER) (test wtco=282) 7.52 7.35-7.45 PCO2 ARTERIAL (BEAKER) (test nztt=241) 34 mmHg 35-45 PO2 ARTERIAL (BEAKER) (test fcbx=129) 310 mmHg 80-90 O2 SATURATION ARTERIAL (BEAKER) (test vgck=453) 99.8 % 96.0-97.0 HCO3 ARTERIAL (BEAKER) (test pnmx=328) 28 mmol/L 21-29 BASE EXCESS ARTERIAL (BEAKER) (test frik=732) 4.2 mmol/L -2.0-3.0 PATIENT TEMPERATURE (BEAKER) (test cjxl=5181) 35.4 C FIO2 (BEAKER) (test xlgj=7252) 96.0 % SODIUM NA-STAT [id number] 08:32:00 Test Item Value Reference Range Comments SODIUM (BEAKER) (test jeye=145) 133 meq/L 135-148 GLUCOSE-STAT [id number] 08:32:00 Test Item Value Reference Range Comments GLUCOSE RANDOM (BEAKER) (test wqgh=181) 113 mg/dL 70-110 HGB/HCT (H&H) - STAT [id number] 08:32:00 Test Item Value Reference Range Comments HEMOGLOBIN (BEAKER) (test pqqj=419) 9.9 g/dL 13.0-16.8 HEMATOCRIT (BEAKER) (test pisl=005) 29.0 % 40.0-50.0 CALCIUM, [id number] 08:31:00 Test Item Value Reference Range Comments CALCIUM IONIZED (BEAKER) (test yjbi=501) 1.05 mmol/L 1.12-1.27 PH, BLOOD (BEAKER) (test hrui=1999) 7.49 POTASSIUM-STAT [id number] 08:29:00 Test Item Value Reference Range Comments POTASSIUM (BEAKER) (test bhmg=514) 3.6 meq/L 3.6-5.5 POCT-GLUCOSE [id number] 06:20:00 Test Item Value Reference Range Comments POC-GLUCOSE METER (BEAKER) 99 mg/dL 70-110 TESTED AT [address] (test zcoh=6111) [facility] [address] [id number] 05:05:00 Test Item Value Reference Range Comments PARTIAL THROMBOPLASTIN TIME (BEAKER) (test 75.6 seconds 22.5-36.0 habl=104) LIPID [id number] 05:04:00 Test Item Value Reference Range Comments TRIGLYCERIDES (BEAKER) (test jelr=217) 53 mg/dL CHOLESTEROL (BEAKER) (test vbsb=571) 122 mg/dL HDL CHOLESTEROL (BEAKER) (test usek=742) 58 mg/dL LDL CHOLESTEROL CALCULATED (BEAKER) (test 53 mg/dL cztd=837) Triglyceride Reference Range: Low Risk <150 Borderline 150- 199 High Risk 200-499 Very High Risk >=500Cholesterol Reference Range: Low Risk <200 Borderline 200-239 High Risk > 240HDL Cholesterol Reference Range: Low Risk >=60 High Risk <40LDL Cholesterol Reference Range: Optimal <100 Near Optimal 100-129 Borderline 130-159 High 160-189 Very High >=190PROTHROMBIN [id number] 05:03:00 Test Item Value Reference Range Comments PROTIME (BEAKER) (test poks=600) 15.4 seconds 11.7-14.7 INR (BEAKER) (test czoh=476) 1.2 <=5.9 RECOMMENDED COUMADIN/WARFARIN INR THERAPY RANGESSTANDARD DOSE: 2.0 - 3.0 Includes: PROPHYLAXIS forvenous thrombosis, systemic embolization; TREATMENT for venous thrombosis and/or pulmonary embolus.HIGH RISK: Target INR is 2.5-3.5 for patients with mechanical heart valves.POCT-GLUCOSE [id number] 21:17:00 Test Item Value Reference Range Comments POC-GLUCOSE METER (BEAKER) 223 mg/dL 70-110 TESTED AT [facility] [address] (test yaox=7175) [facility] [address] COMPREHENSIVE METABOLIC [id number] 18:57:00 Test Item Value Reference Range Comments TOTAL PROTEIN (BEAKER) 7.8 gm/dL 6.0-8.3 (test srus=517) ALBUMIN (BEAKER) (test 3.1 g/dL 3.5-5.0 oqie=3972) ALKALINE PHOSPHATASE 80 U/L 40-150 (BEAKER) (test nfom=268) BILIRUBIN TOTAL (BEAKER) 0.9 mg/dL 0.2-1.2 (test omhe=536) SODIUM (BEAKER) (test 136 meq/L 136-145 xndq=127) POTASSIUM (BEAKER) (test 3.9 meq/L 3.5-5.1 ocpv=007) CHLORIDE (BEAKER) (test 98 meq/L 98-107 oyqi=813) CO2 (BEAKER) (test 30 meq/L 22-29 wdkt=245) BLOOD UREA NITROGEN 19 mg/dL 7-21 (BEAKER) (test umni=268) CREATININE (BEAKER) (test 3.98 mg/dL 0.57-1.25 vydq=625) GLUCOSE RANDOM (BEAKER) 159 mg/dL 70-105 (test fmwh=963) CALCIUM (BEAKER) (test 8.9 mg/dL 8.4-10.2 wnsw=904) AST (SGOT) (BEAKER) (test 25 U/L 5-34 lkvk=148) ALT (SGPT) (BEAKER) (test 28 U/L 6-55 fpeb=091) EGFR (BEAKER) (test 19 mL/min/1.73 sq m ESTIMATED GFR IS NOT vcwo=8405) ACCURATE CREATININE CLEARANCE IN PREDICTING GLOMERULAR FILTRATION RATE. ESTIMATED GFR IS NOT APPLICABLE FOR DIALYSIS PATIENTS. [id number] 18:46:00 Test Item Value Reference Range Comments MAGNESIUM (BEAKER) (test lkpn=428) 1.8 mg/dL 1.6-2.6 CBC W/PLT COUNT & AUTO [id number] 18:10:00 Test Item Value Reference Range Comments WHITE BLOOD CELL COUNT (BEAKER) (test upap=010) 6.2 K/ L 3.5-10.5 RED BLOOD CELL COUNT (BEAKER) (test cioq=375) 3.32 M/ L 4.63-6.08 HEMOGLOBIN (BEAKER) (test kecg=157) 11.0 GM/DL 13.7-17.5 HEMATOCRIT (BEAKER) (test tasr=598) 34.4 % 40.1-51.0 MEAN CORPUSCULAR VOLUME (BEAKER) (test nhth=849) 103.6 fL 79.0-92.2 MEAN CORPUSCULAR HEMOGLOBIN (BEAKER) (test 33.1 pg 25.7-32.2 aebj=620) MEAN CORPUSCULAR HEMOGLOBIN CONC (BEAKER) (test 32.0 GM/DL 32.3-36.5 mpmg=432) RED CELL DISTRIBUTION WIDTH (BEAKER) (test 14.9 % 11.6-14.4 sqwp=883) PLATELET COUNT (BEAKER) (test myjj=787) 77 K/CU MM 150-450 MEAN PLATELET VOLUME (BEAKER) (test qdjs=871) 10.2 fL 9.4-12.4 NUCLEATED RED BLOOD CELLS (BEAKER) (test 0 /100 WBC 0-0 vgmm=029) NEUTROPHILS RELATIVE PERCENT (BEAKER) (test 71 % kylq=809) LYMPHOCYTES RELATIVE PERCENT (BEAKER) (test 13 % xudy=829) MONOCYTES RELATIVE PERCENT (BEAKER) (test 14 % ojox=144) EOSINOPHILS RELATIVE PERCENT (BEAKER) (test 1 % iysk=762) BASOPHILS RELATIVE PERCENT (BEAKER) (test 1 % hkpa=521) NEUTROPHILS ABSOLUTE COUNT (BEAKER) (test 4.39 K/ L 1.78-5.38 hvvb=289) LYMPHOCYTES ABSOLUTE COUNT (BEAKER) (test 0.82 K/ L 1.32-3.57 ssun=398) MONOCYTES ABSOLUTE COUNT (BEAKER) (test bnae=222) 0.84 K/ L 0.30-0.82 EOSINOPHILS ABSOLUTE COUNT (BEAKER) (test 0.05 K/ L 0.04-0.54 ruql=741) BASOPHILS ABSOLUTE COUNT (BEAKER) (test hfqw=548) 0.03 K/ L 0.01-0.08 IMMATURE GRANULOCYTES-RELATIVE PERCENT (BEAKER) 1 % 0-1 (test kaft=8895) POCT-GLUCOSE [id number] 17:34:00 Test Item Value Reference Range Comments POC-GLUCOSE METER (BEAKER) 169 mg/dL 70-110 TESTED AT [facility] [address] [facility] (test arkq=3210) [facility] [address] HEPARIN [id number] 13:40:00 Test Item Value Reference Range Comments HEPARIN ANTIBODY (BEAKER) (test kkcd=534) Negative Negative HEPARIN ANTIBODY OD (BEAKER) (test ngtd=3241) 0.105 <0.400 4T TOTAL SCORE (BEAKER) (test vdzo=2781) 4 Probability of HIT based on scoring system: 6-8=High probability; 4-5= intermediate probability; 0-3=low probabilityPOCT-GLUCOSE [id number] 12:51: 00 Test Item Value Reference Range Comments POC-GLUCOSE METER (BEAKER) 66 mg/dL 70-110 Notified LAURYN PÉREZ/TESTED AT [facility] (test inqv=6504) [address] [place] [address] POCT-GLUCOSE [id number] 07:54:00 Test Item Value Reference Range Comments POC-GLUCOSE METER (BEAKER) 75 mg/dL 70-110 TESTED AT [address] (test iqzw=2703) [facility] [address] [id number] 04:21:00 Test Item Value Reference Range Comments PROTIME (BEAKER) (test jkkz=179) 15.4 seconds 11.7-14.7 INR (BEAKER) (test bnoo=788) 1.2 <=5.9 PARTIAL THROMBOPLASTIN TIME (BEAKER) (test 74.0 seconds 22.5-36.0 eywr=839) RECOMMENDED COUMADIN/WARFARIN INR THERAPY RANGESSTANDARD DOSE: 2.0 - 3.0 Includes: PROPHYLAXIS forvenous thrombosis, systemic embolization; TREATMENT for venous thrombosis and/or pulmonary embolus.HIGH RISK: Target INR is 2.5-3.5 for patients with mechanical heart valves.[id number] 04:20:00 Test Item Value Reference Range Comments FIBRINOGEN LEVEL (BEAKER) (test uzxu=449) 525 mg/dl 225-434 POCT-GLUCOSE [id number] 21:25:00 Test Item Value Reference Range Comments POC-GLUCOSE METER (BEAKER) 129 mg/dL 70-110 TESTED AT [address] (test ieid=5640) [facility] [address] [id number] 18:23:00 Test Item Value Reference Range Comments PARTIAL THROMBOPLASTIN TIME (BEAKER) (test 72.0 seconds 22.5-36.0 aqvt=867) POCT-GLUCOSE [id number] 16:20:00 Test Item Value Reference Range Comments POC-GLUCOSE METER (BEAKER) 142 mg/dL 70-110 TESTED AT [address] (test xpak=4979) [facility] [address] POCT-GLUCOSE [id number] 13:05:00 Test Item Value Reference Range Comments POC-GLUCOSE METER (BEAKER) 86 mg/dL 70-110 TESTED AT [facility] [address] [facility] (test urnk=1608) [facility] [address] [id number] 11:19:00 Test Item Value Reference Range Comments PARTIAL THROMBOPLASTIN TIME (BEAKER) (test 72.3 seconds 22.5-36.0 ehto=227) POCT-GLUCOSE [id number] 07:56:00 Test Item Value Reference Range Comments POC-GLUCOSE METER (BEAKER) 87 mg/dL 70-110 TESTED AT [address] (test avdb=0811) [facility] [address] [id number] 03:13:00 Test Item Value Reference Range Comments PARTIAL THROMBOPLASTIN TIME (BEAKER) (test 97.1 seconds 22.5-36.0 hxth=550) PROTHROMBIN [id number] 03:11:00 Test Item Value Reference Range Comments PROTIME (BEAKER) (test momz=092) 16.5 seconds 11.7-14.7 INR (BEAKER) (test sqki=895) 1.3 <=5.9 RECOMMENDED COUMADIN/WARFARIN INR THERAPY RANGESSTANDARD DOSE: 2.0 - 3.0 Includes: PROPHYLAXIS forvenous thrombosis, systemic embolization; TREATMENT for venous thrombosis and/or pulmonary embolus.HIGH RISK: Target INR is 2.5-3.5 for patients with mechanical heart valves.CBC (HEMOGRAM ONLY)2018-12-15 02:42:00 Test Item Value Reference Range Comments WHITE BLOOD CELL COUNT (BEAKER) (test mhzo=695) 6.9 K/ L 3.5-10.5 RED BLOOD CELL COUNT (BEAKER) (test flzm=115) 3.13 M/ L 4.63-6.08 HEMOGLOBIN (BEAKER) (test zwca=364) 10.6 GM/DL 13.7-17.5 HEMATOCRIT (BEAKER) (test uuqf=137) 32.4 % 40.1-51.0 MEAN CORPUSCULAR VOLUME (BEAKER) (test rpqj=762) 103.5 fL 79.0-92.2 MEAN CORPUSCULAR HEMOGLOBIN (BEAKER) (test 33.9 pg 25.7-32.2 hxru=892) MEAN CORPUSCULAR HEMOGLOBIN CONC (BEAKER) (test 32.7 GM/DL 32.3-36.5 zcma=679) RED CELL DISTRIBUTION WIDTH (BEAKER) (test 14.9 % 11.6-14.4 qons=183) PLATELET COUNT (BEAKER) (test gkym=545) 77 K/CU MM 150-450 MEAN PLATELET VOLUME (BEAKER) (test vewy=377) 8.9 fL 9.4-12.4 NUCLEATED RED BLOOD CELLS (BEAKER) (test 0 /100 WBC 0-0 dlol=172) POCT-GLUCOSE [id number] 21:26:00 Test Item Value Reference Range Comments POC-GLUCOSE METER (BEAKER) 121 mg/dL 70-110 TESTED AT [address] (test baef=3607) [place] [address] [id number] 19:05:00 Test Item Value Reference Range Comments PARTIAL THROMBOPLASTIN TIME (BEAKER) (test 64.0 seconds 22.5-36.0 tcxu=536) POCT-GLUCOSE [id number] 17:24:00 Test Item Value Reference Range Comments POC-GLUCOSE METER (BEAKER) 131 mg/dL 70-110 TESTED AT [address] (test sfjb=0983) [place] [address] [id number] 13:32:00 Test Item Value Reference Range Comments PARTIAL THROMBOPLASTIN TIME (BEAKER) (test 81.4 seconds 22.5-36.0 cdsu=443) POCT-GLUCOSE [id number] 12:32:00 Test Item Value Reference Range Comments POC-GLUCOSE METER (BEAKER) 102 mg/dL 70-110 TESTED AT [address] (test xqve=0676) [place] [id number] POCT-GLUCOSE [id number] 07:07:00 Test Item Value Reference Range Comments POC-GLUCOSE METER (BEAKER) 113 mg/dL 70-110 TESTED AT [address] (test giqs=1404) [place] [address] [id number] 05:47:00 Test Item Value Reference Range Comments PARTIAL THROMBOPLASTIN TIME (BEAKER) (test 91.8 seconds 22.5-36.0 hxbt=895) POCT-GLUCOSE [id number] 21:27:00 Test Item Value Reference Range Comments POC-GLUCOSE METER (BEAKER) 90 mg/dL 70-110 TESTED AT [address] (test gvct=9980) [facility] [address] POCT-GLUCOSE [id number] 17:46:00 Test Item Value Reference Range Comments POC-GLUCOSE METER (BEAKER) 175 mg/dL 70-110 TESTED AT [address] (test ihyh=4106) [place] [id number] POCT-GLUCOSE [id number] 17:30:00 Test Item Value Reference Range Comments POC-GLUCOSE METER (BEAKER) 84 mg/dL 70-110 TESTED AT [address] (test bzur=2985) [place] [address] [id number] 13:20:00 Test Item Value Reference Range Comments PARTIAL THROMBOPLASTIN TIME (BEAKER) (test 68.4 seconds 22.5-36.0 dkcs=215) BASIC METABOLIC [id number] 10:36:00 Test Item Value Reference Range Comments SODIUM (BEAKER) (test 133 meq/L 136-145 fxbt=255) POTASSIUM (BEAKER) (test 4.4 meq/L 3.5-5.1 rzqw=431) CHLORIDE (BEAKER) (test 98 meq/L 98-107 hfsa=360) CO2 (BEAKER) (test 25 meq/L 22-29 fvld=411) BLOOD UREA NITROGEN 38 mg/dL 7-21 (BEAKER) (test fvao=589) CREATININE (BEAKER) (test 6.36 mg/dL 0.57-1.25 whuy=186) GLUCOSE RANDOM (BEAKER) 94 mg/dL 70-105 (test vyzk=830) CALCIUM (BEAKER) (test 8.8 mg/dL 8.4-10.2 acdz=693) EGFR (BEAKER) (test 11 mL/min/1.73 sq m ESTIMATED GFR IS NOT xdoz=0339) ACCURATE CREATININE CLEARANCE IN PREDICTING GLOMERULAR FILTRATION RATE. ESTIMATED GFR IS NOT APPLICABLE FOR DIALYSIS PATIENTS. POCT-GLUCOSE [id number] 07:43:00 Test Item Value Reference Range Comments POC-GLUCOSE METER (BEAKER) 84 mg/dL 70-110 TESTED AT [address] (test phgk=4935) [place] [address] [id number] 06:52:00 Test Item Value Reference Range Comments PARTIAL THROMBOPLASTIN TIME (BEAKER) (test 76.5 seconds 22.5-36.0 ebuf=190) PROTHROMBIN [id number] 06:51:00 Test Item Value Reference Range Comments PROTIME (BEAKER) (test mizq=907) 16.5 seconds 11.7-14.7 INR (BEAKER) (test gpfi=675) 1.3 <=5.9 RECOMMENDED COUMADIN/WARFARIN INR THERAPY RANGESSTANDARD DOSE: 2.0 - 3.0 Includes: PROPHYLAXIS forvenous thrombosis, systemic embolization; TREATMENT for venous thrombosis and/or pulmonary embolus.HIGH RISK: Target INR is 2.5-3.5 for patients with mechanical heart valves.CBC W/PLT COUNT & AUTO [id number] 06:50:00 Test Item Value Reference Range Comments WHITE BLOOD CELL COUNT (BEAKER) (test kbnl=661) 8.4 K/ L 3.5-10.5 RED BLOOD CELL COUNT (BEAKER) (test etnq=933) 3.28 M/ L 4.63-6.08 HEMOGLOBIN (BEAKER) (test lqje=002) 10.9 GM/DL 13.7-17.5 HEMATOCRIT (BEAKER) (test ruiw=439) 34.0 % 40.1-51.0 MEAN CORPUSCULAR VOLUME (BEAKER) (test mhsg=776) 103.7 fL 79.0-92.2 MEAN CORPUSCULAR HEMOGLOBIN (BEAKER) (test 33.2 pg 25.7-32.2 vyxe=462) MEAN CORPUSCULAR HEMOGLOBIN CONC (BEAKER) (test 32.1 GM/DL 32.3-36.5 inii=238) RED CELL DISTRIBUTION WIDTH (BEAKER) (test 15.5 % 11.6-14.4 azvl=413) PLATELET COUNT (BEAKER) (test mela=878) 83 K/CU MM 150-450 MEAN PLATELET VOLUME (BEAKER) (test vqps=591) 9.4 fL 9.4-12.4 NUCLEATED RED BLOOD CELLS (BEAKER) (test 0 /100 WBC 0-0 nuqn=235) NEUTROPHILS RELATIVE PERCENT (BEAKER) (test 72 % efje=289) LYMPHOCYTES RELATIVE PERCENT (BEAKER) (test 16 % nytt=300) MONOCYTES RELATIVE PERCENT (BEAKER) (test 11 % xarg=884) EOSINOPHILS RELATIVE PERCENT (BEAKER) (test 1 % ivij=104) BASOPHILS RELATIVE PERCENT (BEAKER) (test 1 % ruel=164) NEUTROPHILS ABSOLUTE COUNT (BEAKER) (test 6.00 K/ L 1.78-5.38 qvdu=134) LYMPHOCYTES ABSOLUTE COUNT (BEAKER) (test 1.34 K/ L 1.32-3.57 jaxm=800) MONOCYTES ABSOLUTE COUNT (BEAKER) (test rrrw=044) 0.88 K/ L 0.30-0.82 EOSINOPHILS ABSOLUTE COUNT (BEAKER) (test 0.05 K/ L 0.04-0.54 wcyl=296) BASOPHILS ABSOLUTE COUNT (BEAKER) (test hkbx=473) 0.04 K/ L 0.01-0.08 IMMATURE GRANULOCYTES-RELATIVE PERCENT (BEAKER) 1 % 0-1 (test qcrn=3373) [id number] 00:11:00 Test Item Value Reference Range Comments PARTIAL THROMBOPLASTIN TIME (BEAKER) (test 59.7 seconds 22.5-36.0 ycqq=358) POCT-GLUCOSE [id number] 21:33:00 Test Item Value Reference Range Comments POC-GLUCOSE METER (BEAKER) 113 mg/dL 70-110 TESTED AT [address] (test mhnh=7801) [place] [address] POCT-GLUCOSE [id number] 18:08:00 Test Item Value Reference Range Comments POC-GLUCOSE METER (BEAKER) 128 mg/dL 70-110 TESTED AT [address] (test ggvy=6526) [place] [address] [id number] 16:51:00 Test Item Value Reference Range Comments PARTIAL THROMBOPLASTIN TIME (BEAKER) (test 71.6 seconds 22.5-36.0 kuwj=181) POCT-GLUCOSE [id number] 12:39:00 Test Item Value Reference Range Comments POC-GLUCOSE METER (BEAKER) 124 mg/dL 70-110 TESTED AT [address] (test nkjk=2072) [place] [address] [id number] 09:07:00 Test Item Value Reference Range Comments PARTIAL THROMBOPLASTIN TIME (BEAKER) (test 96.6 seconds 22.5-36.0 qewq=603) POCT-GLUCOSE [id number] 07:48:00 Test Item Value Reference Range Comments POC-GLUCOSE METER (BEAKER) 105 mg/dL 70-110 TESTED AT [facility] [address] [facility] (test ffzo=3231) [facility] [address] BASIC METABOLIC [id number] 01:54:00 Test Item Value Reference Range Comments SODIUM (BEAKER) (test 138 meq/L 136-145 eaul=736) POTASSIUM (BEAKER) (test 3.9 meq/L 3.5-5.1 plmf=182) CHLORIDE (BEAKER) (test 100 meq/L 98-107 yhxt=188) CO2 (BEAKER) (test 30 meq/L 22-29 fgrf=378) BLOOD UREA NITROGEN 22 mg/dL 7-21 (BEAKER) (test svrq=711) CREATININE (BEAKER) (test 4.23 mg/dL 0.57-1.25 bfhm=094) GLUCOSE RANDOM (BEAKER) 132 mg/dL 70-105 (test ysui=307) CALCIUM (BEAKER) (test 8.6 mg/dL 8.4-10.2 jqai=012) EGFR (BEAKER) (test 17 mL/min/1.73 sq m ESTIMATED GFR IS NOT jmqd=3494) ACCURATE CREATININE CLEARANCE IN PREDICTING GLOMERULAR FILTRATION RATE. ESTIMATED GFR IS NOT APPLICABLE FOR DIALYSIS PATIENTS. [id number] 01:37:00 Test Item Value Reference Range Comments PARTIAL THROMBOPLASTIN TIME (BEAKER) (test 53.4 seconds 22.5-36.0 qfyv=998) PROTHROMBIN [id number] 01:36:00 Test Item Value Reference Range Comments PROTIME (BEAKER) (test nhsq=927) 18.1 seconds 11.7-14.7 INR (BEAKER) (test bmoi=970) 1.5 <=5.9 RECOMMENDED COUMADIN/WARFARIN INR THERAPY RANGESSTANDARD DOSE: 2.0 - 3.0 Includes: PROPHYLAXIS forvenous thrombosis, systemic embolization; TREATMENT for venous thrombosis and/or pulmonary embolus.HIGH RISK: Target INR is 2.5-3.5 for patients with mechanical heart valves.CBC W/PLT COUNT & AUTO [id number] 01:22:00 Test Item Value Reference Range Comments WHITE BLOOD CELL COUNT (BEAKER) (test mvzq=186) 9.0 K/ L 3.5-10.5 RED BLOOD CELL COUNT (BEAKER) (test vflh=967) 3.25 M/ L 4.63-6.08 HEMOGLOBIN (BEAKER) (test uebc=409) 10.8 GM/DL 13.7-17.5 HEMATOCRIT (BEAKER) (test ozdv=745) 33.7 % 40.1-51.0 MEAN CORPUSCULAR VOLUME (BEAKER) (test ybqo=082) 103.7 fL 79.0-92.2 MEAN CORPUSCULAR HEMOGLOBIN (BEAKER) (test 33.2 pg 25.7-32.2 kyvl=888) MEAN CORPUSCULAR HEMOGLOBIN CONC (BEAKER) (test 32.0 GM/DL 32.3-36.5 mxhb=350) RED CELL DISTRIBUTION WIDTH (BEAKER) (test 15.9 % 11.6-14.4 ltxe=798) PLATELET COUNT (BEAKER) (test hfto=745) 89 K/CU MM 150-450 MEAN PLATELET VOLUME (BEAKER) (test idwc=748) 9.5 fL 9.4-12.4 NUCLEATED RED BLOOD CELLS (BEAKER) (test 0 /100 WBC 0-0 ujsx=921) NEUTROPHILS RELATIVE PERCENT (BEAKER) (test 70 % qngt=502) LYMPHOCYTES RELATIVE PERCENT (BEAKER) (test 15 % hwkn=760) MONOCYTES RELATIVE PERCENT (BEAKER) (test 13 % vswg=808) EOSINOPHILS RELATIVE PERCENT (BEAKER) (test 0 % nrri=319) BASOPHILS RELATIVE PERCENT (BEAKER) (test 0 % rsdy=814) NEUTROPHILS ABSOLUTE COUNT (BEAKER) (test 6.28 K/ L 1.78-5.38 nwrl=338) LYMPHOCYTES ABSOLUTE COUNT (BEAKER) (test 1.37 K/ L 1.32-3.57 ljgi=906) MONOCYTES ABSOLUTE COUNT (BEAKER) (test zipb=912) 1.15 K/ L 0.30-0.82 EOSINOPHILS ABSOLUTE COUNT (BEAKER) (test 0.04 K/ L 0.04-0.54 yury=877) BASOPHILS ABSOLUTE COUNT (BEAKER) (test zyin=781) 0.04 K/ L 0.01-0.08 IMMATURE GRANULOCYTES-RELATIVE PERCENT (BEAKER) 1 % 0-1 (test auac=2545) POCT-GLUCOSE [id number] 21:57:00 Test Item Value Reference Range Comments POC-GLUCOSE METER (BEAKER) 165 mg/dL 70-110 TESTED AT [address] (test alpq=7417) [place] [address] [id number] 18:46:00 Test Item Value Reference Range Comments PARTIAL THROMBOPLASTIN TIME (BEAKER) (test 39.0 seconds 22.5-36.0 umys=376) POCT-GLUCOSE [id number] 17:51:00 Test Item Value Reference Range Comments POC-GLUCOSE METER (BEAKER) 157 mg/dL 70-110 TESTED AT [address] (test qyrj=2999) [place] [address] POCT-GLUCOSE [id number] 17:09:00 Test Item Value Reference Range Comments POC-GLUCOSE METER (BEAKER) 162 mg/dL 70-110 TESTED AT [address] (test jwat=6133) [place] [address] [id number] 16:07:00 Test Item Value Reference Range Comments PARTIAL THROMBOPLASTIN TIME (BEAKER) (test 117.0 seconds 22.5-36.0 iftt=416) POCT-GLUCOSE [id number] 13:28:00 Test Item Value Reference Range Comments POC-GLUCOSE METER (BEAKER) 88 mg/dL 70-110 TESTED AT [address] (test fgye=2189) [place] [address] [id number] 09:17:00 Test Item Value Reference Range Comments PARTIAL THROMBOPLASTIN TIME (BEAKER) (test 71.7 seconds 22.5-36.0 ywbz=597) POCT-GLUCOSE [id number] 08:07:00 Test Item Value Reference Range Comments POC-GLUCOSE METER (BEAKER) 137 mg/dL 70-110 TESTED AT [address] (test bxfp=5369) [place] [address] [id number] 02:27:00 Test Item Value Reference Range Comments PARTIAL THROMBOPLASTIN TIME (BEAKER) (test 62.4 seconds 22.5-36.0 tyav=079) PROTHROMBIN [id number] 02:26:00 Test Item Value Reference Range Comments PROTIME (BEAKER) (test afnm=776) 20.0 seconds 11.7-14.7 INR (BEAKER) (test ubnf=833) 1.7 <=5.9 RECOMMENDED COUMADIN/WARFARIN INR THERAPY RANGESSTANDARD DOSE: 2.0 - 3.0 Includes: PROPHYLAXIS forvenous thrombosis, systemic embolization; TREATMENT for venous thrombosis and/or pulmonary embolus.HIGH RISK: Target INR is 2.5-3.5 for patients with mechanical heart valves.BASIC METABOLIC [id number] 02:02: 00 Test Item Value Reference Range Comments SODIUM (BEAKER) (test 139 meq/L 136-145 zuxk=714) POTASSIUM (BEAKER) (test 4.1 meq/L 3.5-5.1 mhow=112) CHLORIDE (BEAKER) (test 100 meq/L 98-107 pkii=626) CO2 (BEAKER) (test 25 meq/L 22-29 joti=702) BLOOD UREA NITROGEN 48 mg/dL 7-21 (BEAKER) (test tnmv=091) CREATININE (BEAKER) (test 6.50 mg/dL 0.57-1.25 qiob=193) GLUCOSE RANDOM (BEAKER) 127 mg/dL 70-105 (test wcji=569) CALCIUM (BEAKER) (test 8.7 mg/dL 8.4-10.2 bbtb=677) EGFR (BEAKER) (test 11 mL/min/1.73 sq m ESTIMATED GFR IS NOT wgkv=7994) ACCURATE CREATININE CLEARANCE IN PREDICTING GLOMERULAR FILTRATION RATE. ESTIMATED GFR IS NOT APPLICABLE FOR DIALYSIS PATIENTS. CBC W/PLT COUNT & AUTO [id number] 01:42:00 Test Item Value Reference Range Comments WHITE BLOOD CELL COUNT (BEAKER) (test bvyw=660) 9.1 K/ L 3.5-10.5 RED BLOOD CELL COUNT (BEAKER) (test bgap=329) 3.22 M/ L 4.63-6.08 HEMOGLOBIN (BEAKER) (test updp=057) 10.8 GM/DL 13.7-17.5 HEMATOCRIT (BEAKER) (test yzpx=972) 33.5 % 40.1-51.0 MEAN CORPUSCULAR VOLUME (BEAKER) (test wnhh=500) 104.0 fL 79.0-92.2 MEAN CORPUSCULAR HEMOGLOBIN (BEAKER) (test 33.5 pg 25.7-32.2 rrgy=229) MEAN CORPUSCULAR HEMOGLOBIN CONC (BEAKER) (test 32.2 GM/DL 32.3-36.5 lqgu=370) RED CELL DISTRIBUTION WIDTH (BEAKER) (test 16.0 % 11.6-14.4 dbro=524) PLATELET COUNT (BEAKER) (test daho=043) 94 K/CU MM 150-450 MEAN PLATELET VOLUME (BEAKER) (test jdnq=923) 9.9 fL 9.4-12.4 NUCLEATED RED BLOOD CELLS (BEAKER) (test 0 /100 WBC 0-0 pugn=576) NEUTROPHILS RELATIVE PERCENT (BEAKER) (test 73 % nkqw=114) LYMPHOCYTES RELATIVE PERCENT (BEAKER) (test 13 % jvto=954) MONOCYTES RELATIVE PERCENT (BEAKER) (test 11 % lmws=880) EOSINOPHILS RELATIVE PERCENT (BEAKER) (test 0 % kdtj=303) BASOPHILS RELATIVE PERCENT (BEAKER) (test 0 % uwol=294) NEUTROPHILS ABSOLUTE COUNT (BEAKER) (test 6.63 K/ L 1.78-5.38 uioj=966) LYMPHOCYTES ABSOLUTE COUNT (BEAKER) (test 1.14 K/ L 1.32-3.57 seoa=734) MONOCYTES ABSOLUTE COUNT (BEAKER) (test fkdz=807) 1.03 K/ L 0.30-0.82 EOSINOPHILS ABSOLUTE COUNT (BEAKER) (test 0.04 K/ L 0.04-0.54 qvon=677) BASOPHILS ABSOLUTE COUNT (BEAKER) (test pkoj=526) 0.03 K/ L 0.01-0.08 IMMATURE GRANULOCYTES-RELATIVE PERCENT (BEAKER) 2 % 0-1 (test uaut=8633) POCT-GLUCOSE [id number] 21:12:00 Test Item Value Reference Range Comments POC-GLUCOSE METER (BEAKER) 199 mg/dL 70-110 TESTED AT [address] (test iawv=7075) [facility] [address] POCT-GLUCOSE [id number] 17:39:00 Test Item Value Reference Range Comments POC-GLUCOSE METER (BEAKER) 145 mg/dL 70-110 TESTED AT [address] (test kcmv=6453) [facility] [address] [id number] 17:33:00 Test Item Value Reference Range Comments PARTIAL THROMBOPLASTIN TIME (BEAKER) (test 47.3 seconds 22.5-36.0 nszi=818) POCT-GLUCOSE [id number] 12:53:00 Test Item Value Reference Range Comments POC-GLUCOSE METER (BEAKER) 203 mg/dL 70-110 TESTED AT [facility] [address] [facility] (test babn=0350) [place] [id number] POCT-GLUCOSE [id number] 08:28:00 Test Item Value Reference Range Comments POC-GLUCOSE METER (BEAKER) 98 mg/dL 70-110 TESTED AT [address] (test bleb=0570) [facility] [address] BASIC METABOLIC [id number] 05:52:00 Test Item Value Reference Range Comments SODIUM (BEAKER) (test 135 meq/L 136-145 diff=921) POTASSIUM (BEAKER) (test 4.0 meq/L 3.5-5.1 twss=084) CHLORIDE (BEAKER) (test 97 meq/L 98-107 twgq=423) CO2 (BEAKER) (test 26 meq/L 22-29 zsxf=370) BLOOD UREA NITROGEN 31 mg/dL 7-21 (BEAKER) (test igsp=021) CREATININE (BEAKER) (test 4.88 mg/dL 0.57-1.25 qtxg=271) GLUCOSE RANDOM (BEAKER) 135 mg/dL 70-105 (test swxc=248) CALCIUM (BEAKER) (test 8.9 mg/dL 8.4-10.2 wspm=045) EGFR (BEAKER) (test 15 mL/min/1.73 sq m ESTIMATED GFR IS NOT eisk=0765) ACCURATE CREATININE CLEARANCE IN PREDICTING GLOMERULAR FILTRATION RATE. ESTIMATED GFR IS NOT APPLICABLE FOR DIALYSIS PATIENTS. PROTHROMBIN TIME/[id number] 05:51:00 Test Item Value Reference Range Comments PROTIME (BEAKER) (test acsy=033) 22.9 seconds 11.7-14.7 INR (BEAKER) (test awby=298) 2.0 <=5.9 RECOMMENDED COUMADIN/WARFARIN INR THERAPY RANGESSTANDARD DOSE: 2.0 - 3.0 Includes: PROPHYLAXIS forvenous thrombosis, systemic embolization; TREATMENT for venous thrombosis and/or pulmonary embolus.HIGH RISK: Target INR is 2.5-3.5 for patients with mechanical heart valves.CBC W/PLT COUNT & AUTO [id number] 05:31:00 Test Item Value Reference Range Comments WHITE BLOOD CELL COUNT (BEAKER) (test nncp=562) 8.3 K/ L 3.5-10.5 RED BLOOD CELL COUNT (BEAKER) (test wntd=288) 3.29 M/ L 4.63-6.08 HEMOGLOBIN (BEAKER) (test mgza=058) 10.8 GM/DL 13.7-17.5 HEMATOCRIT (BEAKER) (test rsqc=843) 34.1 % 40.1-51.0 MEAN CORPUSCULAR VOLUME (BEAKER) (test raxf=146) 103.6 fL 79.0-92.2 MEAN CORPUSCULAR HEMOGLOBIN (BEAKER) (test 32.8 pg 25.7-32.2 aynr=722) MEAN CORPUSCULAR HEMOGLOBIN CONC (BEAKER) (test 31.7 GM/DL 32.3-36.5 kysp=867) RED CELL DISTRIBUTION WIDTH (BEAKER) (test 16.4 % 11.6-14.4 lttw=376) PLATELET COUNT (BEAKER) (test johw=921) 105 K/CU MM 150-450 MEAN PLATELET VOLUME (BEAKER) (test rsik=364) 9.7 fL 9.4-12.4 NUCLEATED RED BLOOD CELLS (BEAKER) (test 0 /100 WBC 0-0 kbyu=137) NEUTROPHILS RELATIVE PERCENT (BEAKER) (test 76 % ljog=603) LYMPHOCYTES RELATIVE PERCENT (BEAKER) (test 10 % yxed=556) MONOCYTES RELATIVE PERCENT (BEAKER) (test 13 % fict=632) EOSINOPHILS RELATIVE PERCENT (BEAKER) (test 0 % bvmz=310) BASOPHILS RELATIVE PERCENT (BEAKER) (test 0 % vygw=981) NEUTROPHILS ABSOLUTE COUNT (BEAKER) (test 6.32 K/ L 1.78-5.38 quej=732) LYMPHOCYTES ABSOLUTE COUNT (BEAKER) (test 0.85 K/ L 1.32-3.57 bvyn=438) MONOCYTES ABSOLUTE COUNT (BEAKER) (test 1.04 K/ L 0.30-0.82 tuca=470) EOSINOPHILS ABSOLUTE COUNT (BEAKER) (test 0.02 K/ L 0.04-0.54 msvs=480) BASOPHILS ABSOLUTE COUNT (BEAKER) (test 0.02 K/ L 0.01-0.08 mivo=245) IMMATURE GRANULOCYTES-RELATIVE PERCENT (BEAKER) 1 % 0-1 (test ihoi=8881) POCT-GLUCOSE [id number] 20:54:00 Test Item Value Reference Range Comments POC-GLUCOSE METER (BEAKER) 126 mg/dL 70-110 TESTED AT [address] (test folv=3837) [place] [id number] POCT-GLUCOSE [id number] 18:47:00 Test Item Value Reference Range Comments POC-GLUCOSE METER (BEAKER) 70 mg/dL 70-110 TESTED AT [address] (test xbbr=6056) [place] [id number] POCT-GLUCOSE [id number] 13:25:00 Test Item Value Reference Range Comments POC-GLUCOSE METER (BEAKER) 120 mg/dL 70-110 TESTED AT [address] (test bmoo=4493) [place] [address] POCT-GLUCOSE [id number] 09:32:00 Test Item Value Reference Range Comments POC-GLUCOSE METER (BEAKER) 104 mg/dL 70-110 TESTED AT [address] (test uokw=2024) [place] [id number] BASIC METABOLIC [id number] 05:59:00 Test Item Value Reference Range Comments SODIUM (BEAKER) (test 132 meq/L 136-145 agyy=611) POTASSIUM (BEAKER) (test 4.4 meq/L 3.5-5.1 clec=334) CHLORIDE (BEAKER) (test 93 meq/L 98-107 llqv=304) CO2 (BEAKER) (test 24 meq/L 22-29 aitz=941) BLOOD UREA NITROGEN 68 mg/dL 7-21 (BEAKER) (test nzpf=564) CREATININE (BEAKER) (test 7.47 mg/dL 0.57-1.25 yeuy=915) GLUCOSE RANDOM (BEAKER) 112 mg/dL 70-105 (test lilj=597) CALCIUM (BEAKER) (test 8.9 mg/dL 8.4-10.2 dsqe=466) EGFR (BEAKER) (test 9 mL/min/1.73 sq m ESTIMATED GFR IS NOT ulpl=9135) ACCURATE CREATININE CLEARANCE IN PREDICTING GLOMERULAR FILTRATION RATE. ESTIMATED GFR IS NOT APPLICABLE FOR DIALYSIS PATIENTS. PROTHROMBIN TIME/[id number] 05:20:00 Test Item Value Reference Range Comments PROTIME (BEAKER) (test tpje=620) 30.5 seconds 11.7-14.7 INR (BEAKER) (test qkqz=601) 2.9 <=5.9 RECOMMENDED COUMADIN/WARFARIN INR THERAPY RANGESSTANDARD DOSE: 2.0 - 3.0 Includes: PROPHYLAXIS forvenous thrombosis, systemic embolization; TREATMENT for venous thrombosis and/or pulmonary embolus.HIGH RISK: Target INR is 2.5-3.5 for patients with mechanical heart valves.CBC W/PLT COUNT & AUTO [id number] 05:13:00 Test Item Value Reference Range Comments WHITE BLOOD CELL COUNT (BEAKER) (test nssr=974) 8.1 K/ L 3.5-10.5 RED BLOOD CELL COUNT (BEAKER) (test bdqz=906) 3.29 M/ L 4.63-6.08 HEMOGLOBIN (BEAKER) (test vwvb=796) 10.9 GM/DL 13.7-17.5 HEMATOCRIT (BEAKER) (test agxb=351) 33.7 % 40.1-51.0 MEAN CORPUSCULAR VOLUME (BEAKER) (test mllz=026) 102.4 fL 79.0-92.2 MEAN CORPUSCULAR HEMOGLOBIN (BEAKER) (test 33.1 pg 25.7-32.2 tzse=220) MEAN CORPUSCULAR HEMOGLOBIN CONC (BEAKER) (test 32.3 GM/DL 32.3-36.5 qtzd=759) RED CELL DISTRIBUTION WIDTH (BEAKER) (test 16.1 % 11.6-14.4 wfaf=007) PLATELET COUNT (BEAKER) (test fvka=215) 115 K/CU MM 150-450 MEAN PLATELET VOLUME (BEAKER) (test jfki=298) 9.3 fL 9.4-12.4 NUCLEATED RED BLOOD CELLS (BEAKER) (test 0 /100 WBC 0-0 pdny=831) NEUTROPHILS RELATIVE PERCENT (BEAKER) (test 77 % pxrh=211) LYMPHOCYTES RELATIVE PERCENT (BEAKER) (test 11 % nsvc=575) MONOCYTES RELATIVE PERCENT (BEAKER) (test 11 % kjdw=306) EOSINOPHILS RELATIVE PERCENT (BEAKER) (test 0 % bgca=473) BASOPHILS RELATIVE PERCENT (BEAKER) (test 0 % utzr=896) NEUTROPHILS ABSOLUTE COUNT (BEAKER) (test 6.20 K/ L 1.78-5.38 kalt=523) LYMPHOCYTES ABSOLUTE COUNT (BEAKER) (test 0.90 K/ L 1.32-3.57 sbas=893) MONOCYTES ABSOLUTE COUNT (BEAKER) (test 0.89 K/ L 0.30-0.82 xtkn=006) EOSINOPHILS ABSOLUTE COUNT (BEAKER) (test 0.02 K/ L 0.04-0.54 yywv=151) BASOPHILS ABSOLUTE COUNT (BEAKER) (test 0.02 K/ L 0.01-0.08 usum=101) IMMATURE GRANULOCYTES-RELATIVE PERCENT (BEAKER) 1 % 0-1 (test japs=7039) POCT-GLUCOSE [id number] 21:14:00 Test Item Value Reference Range Comments POC-GLUCOSE METER (BEAKER) 200 mg/dL 70-110 TESTED AT [address] (test xqms=5805) [place] [id number] POCT-GLUCOSE [id number] 17:34:00 Test Item Value Reference Range Comments POC-GLUCOSE METER (BEAKER) 143 mg/dL 70-110 TESTED AT [address] (test xjgc=0580) [place] [id number] POCT-GLUCOSE [id number] 12:04:00 Test Item Value Reference Range Comments POC-GLUCOSE METER (BEAKER) 160 mg/dL 70-110 TESTED AT [address] (test oszt=3800) [place] [id number] POCT-GLUCOSE [id number] 08:08:00 Test Item Value Reference Range Comments POC-GLUCOSE METER (BEAKER) 154 mg/dL 70-110 TESTED AT [address] (test juoe=3940) [facility] [address] BASIC METABOLIC [id number] 06:33:00 Test Item Value Reference Range Comments SODIUM (BEAKER) (test 135 meq/L 136-145 rvdg=632) POTASSIUM (BEAKER) (test 4.2 meq/L 3.5-5.1 hflx=457) CHLORIDE (BEAKER) (test 95 meq/L 98-107 xmdp=316) CO2 (BEAKER) (test 25 meq/L 22-29 ilpp=058) BLOOD UREA NITROGEN 55 mg/dL 7-21 (BEAKER) (test yqax=327) CREATININE (BEAKER) (test 6.11 mg/dL 0.57-1.25 vypj=472) GLUCOSE RANDOM (BEAKER) 120 mg/dL 70-105 (test dhgl=373) CALCIUM (BEAKER) (test 9.2 mg/dL 8.4-10.2 cdbc=002) EGFR (BEAKER) (test 11 mL/min/1.73 sq m ESTIMATED GFR IS NOT bfyx=6074) ACCURATE CREATININE CLEARANCE IN PREDICTING GLOMERULAR FILTRATION RATE. ESTIMATED GFR IS NOT APPLICABLE FOR DIALYSIS PATIENTS. [id number] 06:01:00 Test Item Value Reference Range Comments PARTIAL THROMBOPLASTIN TIME (BEAKER) (test 117.2 seconds 22.5-36.0 patv=042) PROTHROMBIN [id number] 05:56:00 Test Item Value Reference Range Comments PROTIME (BEAKER) (test uxfv=287) 30.8 seconds 11.7-14.7 INR (BEAKER) (test dhlt=941) 3.0 <=5.9 RECOMMENDED COUMADIN/WARFARIN INR THERAPY RANGESSTANDARD DOSE: 2.0 - 3.0 Includes: PROPHYLAXIS forvenous thrombosis, systemic embolization; TREATMENT for venous thrombosis and/or pulmonary embolus.HIGH RISK: Target INR is 2.5-3.5 for patients with mechanical heart valves.CBC W/PLT COUNT & AUTO [id number] 05:46:00 Test Item Value Reference Range Comments WHITE BLOOD CELL COUNT (BEAKER) (test oyfc=125) 7.6 K/ L 3.5-10.5 RED BLOOD CELL COUNT (BEAKER) (test gglp=479) 3.30 M/ L 4.63-6.08 HEMOGLOBIN (BEAKER) (test athi=650) 11.0 GM/DL 13.7-17.5 HEMATOCRIT (BEAKER) (test zymd=083) 34.1 % 40.1-51.0 MEAN CORPUSCULAR VOLUME (BEAKER) (test dneq=122) 103.3 fL 79.0-92.2 MEAN CORPUSCULAR HEMOGLOBIN (BEAKER) (test 33.3 pg 25.7-32.2 sczw=867) MEAN CORPUSCULAR HEMOGLOBIN CONC (BEAKER) (test 32.3 GM/DL 32.3-36.5 gwnr=485) RED CELL DISTRIBUTION WIDTH (BEAKER) (test 16.1 % 11.6-14.4 scnn=511) PLATELET COUNT (BEAKER) (test ikbr=304) 119 K/CU MM 150-450 MEAN PLATELET VOLUME (BEAKER) (test jpob=300) 9.2 fL 9.4-12.4 NUCLEATED RED BLOOD CELLS (BEAKER) (test 0 /100 WBC 0-0 oesm=701) NEUTROPHILS RELATIVE PERCENT (BEAKER) (test 73 % xudy=610) LYMPHOCYTES RELATIVE PERCENT (BEAKER) (test 13 % sahm=111) MONOCYTES RELATIVE PERCENT (BEAKER) (test 13 % mwbz=187) EOSINOPHILS RELATIVE PERCENT (BEAKER) (test 0 % pclu=221) BASOPHILS RELATIVE PERCENT (BEAKER) (test 0 % adnx=738) NEUTROPHILS ABSOLUTE COUNT (BEAKER) (test 5.57 K/ L 1.78-5.38 lmeo=984) LYMPHOCYTES ABSOLUTE COUNT (BEAKER) (test 1.01 K/ L 1.32-3.57 rpou=685) MONOCYTES ABSOLUTE COUNT (BEAKER) (test 0.96 K/ L 0.30-0.82 mcah=088) EOSINOPHILS ABSOLUTE COUNT (BEAKER) (test 0.01 K/ L 0.04-0.54 odha=409) BASOPHILS ABSOLUTE COUNT (BEAKER) (test 0.01 K/ L 0.01-0.08 bdkj=616) IMMATURE GRANULOCYTES-RELATIVE PERCENT (BEAKER) 1 % 0-1 (test bexg=6281) POCT-GLUCOSE [id number] 21:37:00 Test Item Value Reference Range Comments POC-GLUCOSE METER (BEAKER) 121 mg/dL 70-110 TESTED AT [address] (test xrqe=5545) [facility] [address] POCT-GLUCOSE [id number] 19:01:00 Test Item Value Reference Range Comments POC-GLUCOSE METER (BEAKER) 191 mg/dL 70-110 TESTED AT [address] (test emdh=8913) [facility] [address] [id number] 18:31:00 Test Item Value Reference Range Comments PARTIAL THROMBOPLASTIN TIME (BEAKER) (test 86.2 seconds 22.5-36.0 zikx=303) POCT-GLUCOSE [id number] 13:05:00 Test Item Value Reference Range Comments POC-GLUCOSE METER (BEAKER) 130 mg/dL 70-110 TESTED AT [address] (test lukw=6264) [facility] [address] RAD, CHEST, 1 VIEW, NON [id number] 12:22:00Reason for exam:->pleural effusionsShould this be performed [...] MDReport Verified Date/Time: 12/07/2018 12:22:50 Reading Location: [facility] C013 Neuro Reading Room [id number] 11:39:00 Test Item Value Reference Range Comments PARTIAL THROMBOPLASTIN TIME (BEAKER) (test 100.1 seconds 22.5-36.0 syci=655) BODY FLUID CULTURE + GRAM [id number] 10:13:00 Test Item Value Reference Range Comments CULTURE (BEAKER) (test danf=0593) No growth GRAM STAIN RESULT (BEAKER) (test <1+ White blood cells seen cfkt=2527) GRAM STAIN RESULT (BEAKER) (test No organisms seen uwlj=43728) POCT-GLUCOSE [id number] 08:51:00 Test Item Value Reference Range Comments POC-GLUCOSE METER (BEAKER) 90 mg/dL 70-110 TESTED AT [address] (test dgqy=6810) [facility] [address] BASIC METABOLIC [id number] 07:31:00 Test Item Value Reference Range Comments SODIUM (BEAKER) (test 136 meq/L 136-145 bcia=590) POTASSIUM (BEAKER) (test 3.8 meq/L 3.5-5.1 rtvn=169) CHLORIDE (BEAKER) (test 97 meq/L 98-107 tsuw=718) CO2 (BEAKER) (test 27 meq/L 22-29 kbki=588) BLOOD UREA NITROGEN 36 mg/dL 7-21 (BEAKER) (test upgs=436) CREATININE (BEAKER) (test 4.44 mg/dL 0.57-1.25 gtjc=498) GLUCOSE RANDOM (BEAKER) 76 mg/dL 70-105 (test tjog=116) CALCIUM (BEAKER) (test 9.2 mg/dL 8.4-10.2 vmyu=373) EGFR (BEAKER) (test 16 mL/min/1.73 sq m ESTIMATED GFR IS NOT nmxl=5802) ACCURATE CREATININE CLEARANCE IN PREDICTING GLOMERULAR FILTRATION RATE. ESTIMATED GFR IS NOT APPLICABLE FOR DIALYSIS PATIENTS. [id number] 05:21:00 Test Item Value Reference Range Comments PARTIAL THROMBOPLASTIN TIME (BEAKER) (test 104.0 seconds 22.5-36.0 pfht=486) PROTHROMBIN TIME/[id number] 04:50:00 Test Item Value Reference Range Comments PROTIME (BEAKER) (test yhsd=517) 23.7 seconds 11.7-14.7 INR (BEAKER) (test evjc=043) 2.1 <=5.9 RECOMMENDED COUMADIN/WARFARIN INR THERAPY RANGESSTANDARD DOSE: 2.0 - 3.0 Includes: PROPHYLAXIS forvenous thrombosis, systemic embolization; TREATMENT for venous thrombosis and/or pulmonary embolus.HIGH RISK: Target INR is 2.5-3.5 for patients with mechanical heart valves.CBC W/PLT COUNT & AUTO [id number] 04:37:00 Test Item Value Reference Range Comments WHITE BLOOD CELL COUNT (BEAKER) (test wesn=151) 9.1 K/ L 3.5-10.5 RED BLOOD CELL COUNT (BEAKER) (test bitc=901) 3.27 M/ L 4.63-6.08 HEMOGLOBIN (BEAKER) (test cpcg=312) 10.9 GM/DL 13.7-17.5 HEMATOCRIT (BEAKER) (test hlsv=738) 33.0 % 40.1-51.0 MEAN CORPUSCULAR VOLUME (BEAKER) (test cowk=493) 100.9 fL 79.0-92.2 MEAN CORPUSCULAR HEMOGLOBIN (BEAKER) (test 33.3 pg 25.7-32.2 rciw=148) MEAN CORPUSCULAR HEMOGLOBIN CONC (BEAKER) (test 33.0 GM/DL 32.3-36.5 xbpf=307) RED CELL DISTRIBUTION WIDTH (BEAKER) (test 15.6 % 11.6-14.4 svbb=256) PLATELET COUNT (BEAKER) (test qqem=309) 140 K/CU MM 150-450 MEAN PLATELET VOLUME (BEAKER) (test itue=426) 9.3 fL 9.4-12.4 NUCLEATED RED BLOOD CELLS (BEAKER) (test 0 /100 WBC 0-0 pwcf=432) NEUTROPHILS RELATIVE PERCENT (BEAKER) (test 80 % rfjy=767) LYMPHOCYTES RELATIVE PERCENT (BEAKER) (test 9 % xgvz=947) MONOCYTES RELATIVE PERCENT (BEAKER) (test 10 % onqp=404) EOSINOPHILS RELATIVE PERCENT (BEAKER) (test 0 % wpcb=224) BASOPHILS RELATIVE PERCENT (BEAKER) (test 0 % jqfi=611) NEUTROPHILS ABSOLUTE COUNT (BEAKER) (test 7.26 K/ L 1.78-5.38 wxyo=602) LYMPHOCYTES ABSOLUTE COUNT (BEAKER) (test 0.82 K/ L 1.32-3.57 pdys=149) MONOCYTES ABSOLUTE COUNT (BEAKER) (test 0.94 K/ L 0.30-0.82 ibrr=049) EOSINOPHILS ABSOLUTE COUNT (BEAKER) (test 0.01 K/ L 0.04-0.54 ezzm=425) BASOPHILS ABSOLUTE COUNT (BEAKER) (test 0.01 K/ L 0.01-0.08 vbmy=702) IMMATURE GRANULOCYTES-RELATIVE PERCENT (BEAKER) 1 % 0-1 (test sxqq=2174) [id number] 20:33:00 Test Item Value Reference Range Comments PARTIAL THROMBOPLASTIN TIME (BEAKER) (test 87.6 seconds 22.5-36.0 iorr=121) POCT-GLUCOSE [id number] 19:30:00 Test Item Value Reference Range Comments POC-GLUCOSE METER (BEAKER) 112 mg/dL 70-110 TESTED AT [facility] [address] [facility] (test xquj=7340) [facility] [address] [id number] 13:55:00 Test Item Value Reference Range Comments PARTIAL THROMBOPLASTIN TIME (BEAKER) (test 85.9 seconds 22.5-36.0 tqdt=635) POCT-GLUCOSE [id number] 09:12:00 Test Item Value Reference Range Comments POC-GLUCOSE METER (BEAKER) 112 mg/dL 70-110 TESTED AT [facility] [address] (test foxy=3259) [facility] [address] BASIC METABOLIC [id number] 08:53:00 Test Item Value Reference Range Comments SODIUM (BEAKER) (test 134 meq/L 136-145 bukz=629) POTASSIUM (BEAKER) (test 3.8 meq/L 3.5-5.1 tjtn=061) CHLORIDE (BEAKER) (test 96 meq/L 98-107 ksqd=175) CO2 (BEAKER) (test 23 meq/L 22-29 ajpl=184) BLOOD UREA NITROGEN 81 mg/dL 7-21 (BEAKER) (test jfeq=499) CREATININE (BEAKER) (test 7.04 mg/dL 0.57-1.25 bxkq=117) GLUCOSE RANDOM (BEAKER) 122 mg/dL 70-105 (test tfih=744) CALCIUM (BEAKER) (test 9.0 mg/dL 8.4-10.2 vnbl=672) EGFR (BEAKER) (test 10 mL/min/1.73 sq m ESTIMATED GFR IS NOT togz=5590) ACCURATE CREATININE CLEARANCE IN PREDICTING GLOMERULAR FILTRATION RATE. ESTIMATED GFR IS NOT APPLICABLE FOR DIALYSIS PATIENTS. [id number] 06:04:00 Test Item Value Reference Range Comments PARTIAL THROMBOPLASTIN TIME (BEAKER) (test 105.5 seconds 22.5-36.0 fyev=127) PROTHROMBIN [id number] 05:44:00 Test Item Value Reference Range Comments PROTIME (BEAKER) (test dfwl=992) 17.9 seconds 11.7-14.7 INR (BEAKER) (test mnbq=086) 1.5 <=5.9 RECOMMENDED COUMADIN/WARFARIN INR THERAPY RANGESSTANDARD DOSE: 2.0 - 3.0 Includes: PROPHYLAXIS forvenous thrombosis, systemic embolization; TREATMENT for venous thrombosis and/or pulmonary embolus.HIGH RISK: Target INR is 2.5-3.5 for patients with mechanical heart valves.CBC W/PLT COUNT & AUTO [id number] 05:22:00 Test Item Value Reference Range Comments WHITE BLOOD CELL COUNT (BEAKER) (test yshy=015) 9.4 K/ L 3.5-10.5 RED BLOOD CELL COUNT (BEAKER) (test hfts=031) 3.41 M/ L 4.63-6.08 HEMOGLOBIN (BEAKER) (test idjy=155) 11.2 GM/DL 13.7-17.5 HEMATOCRIT (BEAKER) (test srkf=898) 34.7 % 40.1-51.0 MEAN CORPUSCULAR VOLUME (BEAKER) (test mzsx=826) 101.8 fL 79.0-92.2 MEAN CORPUSCULAR HEMOGLOBIN (BEAKER) (test 32.8 pg 25.7-32.2 umge=764) MEAN CORPUSCULAR HEMOGLOBIN CONC (BEAKER) (test 32.3 GM/DL 32.3-36.5 djdu=584) RED CELL DISTRIBUTION WIDTH (BEAKER) (test 15.5 % 11.6-14.4 zjvw=734) PLATELET COUNT (BEAKER) (test helh=916) 150 K/CU MM 150-450 MEAN PLATELET VOLUME (BEAKER) (test yxzs=881) 8.7 fL 9.4-12.4 NUCLEATED RED BLOOD CELLS (BEAKER) (test 0 /100 WBC 0-0 wolc=812) NEUTROPHILS RELATIVE PERCENT (BEAKER) (test 78 % dryv=484) LYMPHOCYTES RELATIVE PERCENT (BEAKER) (test 10 % jcjn=307) MONOCYTES RELATIVE PERCENT (BEAKER) (test 11 % sdgt=618) EOSINOPHILS RELATIVE PERCENT (BEAKER) (test 0 % rymz=331) BASOPHILS RELATIVE PERCENT (BEAKER) (test 0 % zvji=788) NEUTROPHILS ABSOLUTE COUNT (BEAKER) (test 7.28 K/ L 1.78-5.38 luxz=445) LYMPHOCYTES ABSOLUTE COUNT (BEAKER) (test 0.94 K/ L 1.32-3.57 zozq=522) MONOCYTES ABSOLUTE COUNT (BEAKER) (test 1.04 K/ L 0.30-0.82 sxnr=267) EOSINOPHILS ABSOLUTE COUNT (BEAKER) (test 0.02 K/ L 0.04-0.54 ifjl=759) BASOPHILS ABSOLUTE COUNT (BEAKER) (test 0.01 K/ L 0.01-0.08 aexe=744) IMMATURE GRANULOCYTES-RELATIVE PERCENT (BEAKER) 1 % 0-1 (test maga=7495) CT, CHEST, WITHOUT [id number] 03:17:00FINAL REPORT EXAM: CT of the chest, [...] left pleural effusion with associated compressive atelectasis. Mepvw-jd-nobrxfsk loculated right pleural effusion with pleural thickening [...] to follow up is recommendedCardiomegaly. Signed: [facility] Verified Date/Time: 12/06/2018 03:17:03 Reading Location: [facility] B1 C013Y CT Body Reading Room POCT-GLUCOSE [id number] 21:22:00 Test Item Value Reference Range Comments POC-GLUCOSE METER (BEAKER) 171 mg/dL 70-110 TESTED AT [facility] [address] [place] [address] (test ipkg=7555) [facility] [address] POCT-GLUCOSE [id number] 17:58:00 Test Item Value Reference Range Comments POC-GLUCOSE METER (BEAKER) 128 mg/dL 70-110 TESTED AT [address] (test rbhw=5117) [place] [id number] POCT-GLUCOSE [id number] 13:24:00 Test Item Value Reference Range Comments POC-GLUCOSE METER (BEAKER) 129 mg/dL 70-110 TESTED AT [address] (test qvjw=4193) [place] [id number] LACTATE DEHYDROGENASE (LDH)2018-12-05 13:14:00 Test Item Value Reference Range Comments LACTATE DEHYDROGENASE (BEAKER) (test wjek=769) 291 U/L 125-220 [id number] 13:10:00 Test Item Value Reference Range Comments PARTIAL THROMBOPLASTIN TIME (BEAKER) (test 91.7 seconds 22.5-36.0 nkok=394) POCT-GLUCOSE [id number] 08:19:00 Test Item Value Reference Range Comments POC-GLUCOSE METER (BEAKER) 106 mg/dL 70-110 TESTED AT [address] (test kxrx=1604) [place] [id number] BASIC METABOLIC [id number] 07:05:00 Test Item Value Reference Range Comments SODIUM (BEAKER) (test 137 meq/L 136-145 nxad=928) POTASSIUM (BEAKER) (test 3.7 meq/L 3.5-5.1 puvk=090) CHLORIDE (BEAKER) (test 100 meq/L 98-107 mdjv=124) CO2 (BEAKER) (test 24 meq/L 22-29 tqzq=830) BLOOD UREA NITROGEN 60 mg/dL 7-21 (BEAKER) (test acbp=950) CREATININE (BEAKER) (test 5.57 mg/dL 0.57-1.25 pfnf=670) GLUCOSE RANDOM (BEAKER) 113 mg/dL 70-105 (test ypzf=543) CALCIUM (BEAKER) (test 9.2 mg/dL 8.4-10.2 aymq=902) EGFR (BEAKER) (test 13 mL/min/1.73 sq m ESTIMATED GFR IS NOT bsrc=7388) ACCURATE CREATININE CLEARANCE IN PREDICTING GLOMERULAR FILTRATION RATE. ESTIMATED GFR IS NOT APPLICABLE FOR DIALYSIS PATIENTS. PT/[id number] 06:32:00 Test Item Value Reference Range Comments PROTIME (BEAKER) (test dhqn=347) 19.8 seconds 11.7-14.7 INR (BEAKER) (test hfmz=114) 1.6 <=5.9 PARTIAL THROMBOPLASTIN TIME (BEAKER) (test 76.5 seconds 22.5-36.0 whmo=469) RECOMMENDED COUMADIN/WARFARIN INR THERAPY RANGESSTANDARD DOSE: 2.0 - 3.0 Includes: PROPHYLAXIS forvenous thrombosis, systemic embolization; TREATMENT for venous thrombosis and/or pulmonary embolus.HIGH RISK: Target INR is 2.5-3.5 for patients with mechanical heart valves.PROTHROMBIN TIME/[id number] 06:30: 00 Test Item Value Reference Range Comments PROTIME (BEAKER) (test csbc=111) 19.8 seconds 11.7-14.7 INR (BEAKER) (test bbca=252) 1.6 <=5.9 RECOMMENDED COUMADIN/WARFARIN INR THERAPY RANGESSTANDARD DOSE: 2.0 - 3.0 Includes: PROPHYLAXIS forvenous thrombosis, systemic embolization; TREATMENT for venous thrombosis and/or pulmonary embolus.HIGH RISK: Target INR is 2.5-3.5 for patients with mechanical heart valves.CBC W/PLT COUNT & AUTO [id number] 06:15:00 Test Item Value Reference Range Comments WHITE BLOOD CELL COUNT (BEAKER) (test rjid=849) 7.5 K/ L 3.5-10.5 RED BLOOD CELL COUNT (BEAKER) (test ompv=032) 3.27 M/ L 4.63-6.08 HEMOGLOBIN (BEAKER) (test snis=215) 10.7 GM/DL 13.7-17.5 HEMATOCRIT (BEAKER) (test qhvn=332) 33.1 % 40.1-51.0 MEAN CORPUSCULAR VOLUME (BEAKER) (test urst=164) 101.2 fL 79.0-92.2 MEAN CORPUSCULAR HEMOGLOBIN (BEAKER) (test 32.7 pg 25.7-32.2 piqh=587) MEAN CORPUSCULAR HEMOGLOBIN CONC (BEAKER) (test 32.3 GM/DL 32.3-36.5 khcb=927) RED CELL DISTRIBUTION WIDTH (BEAKER) (test 15.3 % 11.6-14.4 dxbd=488) PLATELET COUNT (BEAKER) (test cnyl=131) 145 K/CU MM 150-450 MEAN PLATELET VOLUME (BEAKER) (test iqpe=197) 9.1 fL 9.4-12.4 NUCLEATED RED BLOOD CELLS (BEAKER) (test 0 /100 WBC 0-0 cmdp=969) NEUTROPHILS RELATIVE PERCENT (BEAKER) (test 74 % adty=106) LYMPHOCYTES RELATIVE PERCENT (BEAKER) (test 13 % arze=428) MONOCYTES RELATIVE PERCENT (BEAKER) (test 12 % dbqj=600) EOSINOPHILS RELATIVE PERCENT (BEAKER) (test 0 % kbyt=261) BASOPHILS RELATIVE PERCENT (BEAKER) (test 0 % ndgy=048) NEUTROPHILS ABSOLUTE COUNT (BEAKER) (test 5.57 K/ L 1.78-5.38 dxmv=100) LYMPHOCYTES ABSOLUTE COUNT (BEAKER) (test 0.94 K/ L 1.32-3.57 dkub=595) MONOCYTES ABSOLUTE COUNT (BEAKER) (test 0.91 K/ L 0.30-0.82 nvkq=963) EOSINOPHILS ABSOLUTE COUNT (BEAKER) (test 0.02 K/ L 0.04-0.54 dwqh=656) BASOPHILS ABSOLUTE COUNT (BEAKER) (test 0.01 K/ L 0.01-0.08 ngva=462) IMMATURE GRANULOCYTES-RELATIVE PERCENT (BEAKER) 1 % 0-1 (test ilvp=3635) [id number] 00:40:00 Test Item Value Reference Range Comments PARTIAL THROMBOPLASTIN TIME (BEAKER) (test 63.1 seconds 22.5-36.0 pddl=367) POCT-GLUCOSE [id number] 00:12:00 Test Item Value Reference Range Comments POC-GLUCOSE METER (BEAKER) 124 mg/dL 70-110 TESTED AT [address] (test ntoe=1814) [facility] [address] HEPATITIS B SURFACE [id number] 22:54:00 Test Item Value Reference Range Comments HEPATITIS B SURFACE ANTIGEN (2) (BEAKER) (test Nonreactive Nonreactive jpgj=8300) For chronic HD patients, draw HBsAg with each admission then every 30 days.BODY FLUID CELL COUNT WITH [id number] 20:34:00 Test Item Value Reference Range Comments APPEARANCE FLUID (BEAKER) (test uoly=951) Cloudy Clear COLOR FLUID (BEAKER) (test yoya=182) Brown Colorless, Straw RBC FLUID (BEAKER) (test oent=156) 239[address] /cu mm <=1 ADJUSTED WBC FLUID (BEAKER) (test xfok=0022) 330 /cu mm <=5 LINING CELLS (BEAKER) (test hpzb=1356) 0 /cu mm <=1 NEUTROPHILS FLUID (BEAKER) (test yitx=4006) 4 % LYMPHS FLUID (BEAKER) (test nvlu=322) 92 % MONO/MACROPHAGE FLUID (BEAKER) (test nkzg=487) 4 % EOSINOPHILS FLUID (BEAKER) (test ncpg=896) 0 % BASO FLUID (BEAKER) (test lqmp=122) 0 % CONTAINER BODY FLUID (BEAKER) (test cntw=6497) EDTA Tube LACTATE DEHYDROGENASE (LDH), BODY [id number] 19:43:00 Test Item Value Reference Range Comments LACTATE DEHYDROGENASE FLUID (BEAKER) 288 U/L Light's criteria identifies (test beze=394) effusions if one or more are pre Absence of reference range indicates that normals have not been defined.Assay performance has not been validated for this type of specimen.U/S, [id number] 18:00:00Laterality?->RightReason for exam:-> SHORTNESS OF BREATHFINAL REPORT PROCEDURE: Ultrasound- guided thoracentesis INDICATION: 63-year-old man with shortness of breath and right pleural effusion. DESCRIPTION: After obtaining informed written consent, ultrasound scan showed a septated pleural effusion on the right. The overlying skin wasprepped and draped in the usual, sterile fashion and local 1% lidocaine anesthesia was administered.A 4 [place] catheter was advanced into the largest pocket of the septated pleural effusion and 300 ccof bloody fluid was removed. The catheter was removed without immediate complication. Samples were sent for analysis. IMPRESSION:Uncomplicated ultrasound-guided right thoracentesis with 300 cc fluid removed. Signed: Raimundo Kim MDReport Verified Date/Time: 12/2018 18:00:50 Reading Location: [facility] P006J Ultrasound Reading Room RAD, CHEST, 1 VIEW, NON [id number] 17:23:00Reason for exam:->s/p right thoracentesisShould this be performed at the bedside?->YesFINAL REPORT EXAM: Frontal chest radiograph HISTORY PROVIDED: Status post right thoracentesis COMPARISON: 12/03/2018 IMPRESSION:There is residual small right pleural effusion with adjacent consolidation or atelectasis. Interstitial edema is similar. No discernible pneumothorax. The cardiac silhouette remains enlarged. Median sternotomy wires are again noted. No acute osseous abnormality. Signed: Kay Waletr MDReport Verified Date/Time: 17:23:06 Reading Location: [facility] Reading Room C. DIFFICILE GDH [id number] 10:01:00 Test Item Value Reference Range Comments CDT TOXIN (test Negative Negative gpfz=[id number]) CDT GDH ANTIGEN (test Positive Negative C. difficile present but toxin hawp=[id number]) not detected. Indicates colonization with non-toxigenic strain or level of toxin below detectable levels. No need for enteric isolation. Treatment is rarely needed (only when strong clinical suspicion for Clostridium difficile infection) Testing performed by [employer] Rapid Cassette Assay. For GDH, published sensitivity of the assay is 98.7% compared to cytotoxicity testing. For Toxin AB, published sensitivity is 87.8% and specificity 99.4% compared to cytotoxicity testing.Verification of kit performance was done by the [facility] Microbiology Lab prior to clinical use.[id number] 09:39:00 Test Item Value Reference Range Comments PARTIAL THROMBOPLASTIN TIME (BEAKER) (test 79.4 seconds 22.5-36.0 vain=765) OCCULT BLOOD, [id number] 05:59:00 Test Item Value Reference Range Comments FECAL OCCULT BLOOD (BEAKER) (test dxcj=162) Negative Negative BASIC METABOLIC [id number] 02:50:00 Test Item Value Reference Range Comments SODIUM (BEAKER) (test 138 meq/L 136-145 zujk=317) POTASSIUM (BEAKER) (test 3.4 meq/L 3.5-5.1 qdil=748) CHLORIDE (BEAKER) (test 98 meq/L 98-107 zcxo=818) CO2 (BEAKER) (test 25 meq/L 22-29 bzyl=906) BLOOD UREA NITROGEN 96 mg/dL 7-21 (BEAKER) (test ycne=992) CREATININE (BEAKER) (test 7.48 mg/dL 0.57-1.25 guzh=597) GLUCOSE RANDOM (BEAKER) 169 mg/dL 70-105 (test dyth=619) CALCIUM (BEAKER) (test 9.4 mg/dL 8.4-10.2 cuor=217) EGFR (BEAKER) (test 9 mL/min/1.73 sq m ESTIMATED GFR IS NOT hpcu=9971) ACCURATE CREATININE CLEARANCE IN PREDICTING GLOMERULAR FILTRATION RATE. ESTIMATED GFR IS NOT APPLICABLE FOR DIALYSIS PATIENTS. [id number] 02:50:00 Test Item Value Reference Range Comments PARTIAL THROMBOPLASTIN TIME (BEAKER) (test 35.3 seconds 22.5-36.0 dtps=528) Prior to initiating heparinPROTHROMBIN TIME/[id number] 02:49:00 Test Item Value Reference Range Comments PROTIME (BEAKER) (test rdsi=271) 25.1 seconds 11.7-14.7 INR (BEAKER) (test eldy=850) 2.3 <=5.9 RECOMMENDED COUMADIN/WARFARIN INR THERAPY RANGESSTANDARD DOSE: 2.0 - 3.0 Includes: PROPHYLAXIS forvenous thrombosis, systemic embolization; TREATMENT for venous thrombosis and/or pulmonary embolus.HIGH RISK: Target INR is 2.5-3.5 for patients with mechanical heart valves.Prior to initiating heparinTROPONIN [id number] 02:49:00 Test Item Value Reference Range Comments TROPONIN I (BEAKER) (test umfq=074) 0.08 ng/mL 0.00-0.03 Troponin I (TnI) levels [...] acute neurological disease, and persistent tachyarrhythmia.HEPATIC FUNCTION [id number] 02:43: 00 Test Item Value Reference Range Comments TOTAL PROTEIN (BEAKER) (test kdxt=492) 7.3 gm/dL 6.0-8.3 ALBUMIN (BEAKER) (test tvoc=8892) 3.1 g/dL 3.5-5.0 BILIRUBIN TOTAL (BEAKER) (test otrf=290) 0.8 mg/dL 0.2-1.2 BILIRUBIN DIRECT (BEAKER) (test yndp=964) 0.5 mg/dL 0.1-0.5 ALKALINE PHOSPHATASE (BEAKER) (test mwdj=912) 98 U/L 40-150 AST (SGOT) (BEAKER) (test otnm=023) 28 U/L 5-34 ALT (SGPT) (BEAKER) (test mazm=888) 37 U/L 6-55 CBC W/PLT COUNT & AUTO [id number] 02:21:00 Test Item Value Reference Range Comments WHITE BLOOD CELL COUNT (BEAKER) (test wqzh=504) 8.5 K/ L 3.5-10.5 RED BLOOD CELL COUNT (BEAKER) (test stzc=734) 3.15 M/ L 4.63-6.08 HEMOGLOBIN (BEAKER) (test ilat=725) 10.4 GM/DL 13.7-17.5 HEMATOCRIT (BEAKER) (test hxac=962) 31.8 % 40.1-51.0 MEAN CORPUSCULAR VOLUME (BEAKER) (test exln=288) 101.0 fL 79.0-92.2 MEAN CORPUSCULAR HEMOGLOBIN (BEAKER) (test 33.0 pg 25.7-32.2 jihz=015) MEAN CORPUSCULAR HEMOGLOBIN CONC (BEAKER) (test 32.7 GM/DL 32.3-36.5 xsyq=380) RED CELL DISTRIBUTION WIDTH (BEAKER) (test 15.5 % 11.6-14.4 ybyd=336) PLATELET COUNT (BEAKER) (test bqzq=198) 137 K/CU MM 150-450 MEAN PLATELET VOLUME (BEAKER) (test dkem=585) 8.9 fL 9.4-12.4 NUCLEATED RED BLOOD CELLS (BEAKER) (test 0 /100 WBC 0-0 xkys=776) NEUTROPHILS RELATIVE PERCENT (BEAKER) (test 75 % wrqq=136) LYMPHOCYTES RELATIVE PERCENT (BEAKER) (test 12 % trmv=903) MONOCYTES RELATIVE PERCENT (BEAKER) (test 12 % dgwp=359) EOSINOPHILS RELATIVE PERCENT (BEAKER) (test 0 % yknu=330) BASOPHILS RELATIVE PERCENT (BEAKER) (test 0 % fxxr=010) NEUTROPHILS ABSOLUTE COUNT (BEAKER) (test 6.32 K/ L 1.78-5.38 udut=800) LYMPHOCYTES ABSOLUTE COUNT (BEAKER) (test 1.00 K/ L 1.32-3.57 edql=781) MONOCYTES ABSOLUTE COUNT (BEAKER) (test 1.01 K/ L 0.30-0.82 blci=946) EOSINOPHILS ABSOLUTE COUNT (BEAKER) (test 0.02 K/ L 0.04-0.54 xdmj=473) BASOPHILS ABSOLUTE COUNT (BEAKER) (test 0.01 K/ L 0.01-0.08 niml=124) IMMATURE GRANULOCYTES-RELATIVE PERCENT (BEAKER) 2 % 0-1 (test zlcf=5635) POCT-GLUCOSE [id number] 21:22:00 Test Item Value Reference Range Comments POC-GLUCOSE METER (BEAKER) 192 mg/dL 70-110 TESTED AT [facility] [address] [facility] (test gzny=3959) [facility] [address] TROPONIN [id number] 17:09:00 Test Item Value Reference Range Comments TROPONIN I (BEAKER) (test hqpx=755) 0.10 ng/mL 0.00-0.03 Troponin I (TnI) levels [...] and persistent tachyarrhythmia.RAD, CHEST, 1 VIEW, NON [id number] 15:36:00Reason for exam:->SHORTNESS OF BREATHShould this be performed at the bedside?->YesFINAL REPORT AP chest HISTORY: Shortness of breath. COMPARISON: 11/03/2017. IMPRESSION: Cardiomegaly. Mild interstitial edema. Right effusion and adjacent atelectasis. No pneumothorax. Signed: Mandy Chairez MDReport Verified Date/Time: 12/03/2018 15:36:19 Reading Location: [address] Radiology Reading Room TROPONIN [id number] 14:48:00 Test Item Value Reference Range Comments TROPONIN I (BEAKER) (test fnba=746) 0.10 ng/mL 0.00-0.03 Troponin I (TnI) levels [...] NATRIURETIC PEPTIDE (BEAKER) (test 2959 pg/mL 0-100 rzxl=381) BASIC METABOLIC [id number] 14:40:00 Test Item Value Reference Range Comments SODIUM (BEAKER) (test 137 meq/L 136-145 vtht=967) POTASSIUM (BEAKER) (test 3.3 meq/L 3.5-5.1 yeli=347) CHLORIDE (BEAKER) (test 99 meq/L 98-107 dnxe=751) CO2 (BEAKER) (test 24 meq/L 22-29 brpu=305) BLOOD UREA NITROGEN 85 mg/dL 7-21 (BEAKER) (test juef=759) CREATININE (BEAKER) (test 6.72 mg/dL 0.57-1.25 rgpu=988) GLUCOSE RANDOM (BEAKER) 158 mg/dL 70-105 (test ugtf=874) CALCIUM (BEAKER) (test 9.7 mg/dL 8.4-10.2 fsfs=449) EGFR (BEAKER) (test 10 mL/min/1.73 sq m ESTIMATED GFR IS NOT qtne=2169) ACCURATE CREATININE CLEARANCE IN PREDICTING GLOMERULAR FILTRATION RATE. ESTIMATED GFR IS NOT APPLICABLE FOR DIALYSIS PATIENTS. [id number] 14:34:00 Test Item Value Reference Range Comments PROTIME (BEAKER) (test torh=065) 25.4 seconds 11.7-14.7 INR (BEAKER) (test grsb=105) 2.3 <=5.9 PARTIAL THROMBOPLASTIN TIME (BEAKER) (test 34.3 seconds 22.5-36.0 uzlg=149) RECOMMENDED COUMADIN/WARFARIN INR THERAPY RANGESSTANDARD DOSE: 2.0 - 3.0 Includes: PROPHYLAXIS forvenous thrombosis, systemic embolization; TREATMENT for venous thrombosis and/or pulmonary embolus.HIGH RISK: Target INR is 2.5-3.5 for patients with mechanical heart valves.CBC W/PLT COUNT & AUTO [id number] 14:25:00 Test Item Value Reference Range Comments WHITE BLOOD CELL COUNT (BEAKER) (test vbll=959) 8.5 K/ L 3.5-10.5 RED BLOOD CELL COUNT (BEAKER) (test vzgg=524) 3.26 M/ L 4.63-6.08 HEMOGLOBIN (BEAKER) (test mdlj=415) 10.9 GM/DL 13.7-17.5 HEMATOCRIT (BEAKER) (test hujf=864) 33.3 % 40.1-51.0 MEAN CORPUSCULAR VOLUME (BEAKER) (test nmhz=973) 102.1 fL 79.0-92.2 MEAN CORPUSCULAR HEMOGLOBIN (BEAKER) (test 33.4 pg 25.7-32.2 nghl=191) MEAN CORPUSCULAR HEMOGLOBIN CONC (BEAKER) (test 32.7 GM/DL 32.3-36.5 lzmj=980) RED CELL DISTRIBUTION WIDTH (BEAKER) (test 15.3 % 11.6-14.4 cfti=229) PLATELET COUNT (BEAKER) (test nisg=786) 162 K/CU MM 150-450 MEAN PLATELET VOLUME (BEAKER) (test nzaf=913) 9.2 fL 9.4-12.4 NUCLEATED RED BLOOD CELLS (BEAKER) (test 0 /100 WBC 0-0 dmew=450) NEUTROPHILS RELATIVE PERCENT (BEAKER) (test 74 % ucos=930) LYMPHOCYTES RELATIVE PERCENT (BEAKER) (test 13 % fhxn=303) MONOCYTES RELATIVE PERCENT (BEAKER) (test 11 % ryrw=017) EOSINOPHILS RELATIVE PERCENT (BEAKER) (test 0 % qywe=882) BASOPHILS RELATIVE PERCENT (BEAKER) (test 0 % ayog=134) NEUTROPHILS ABSOLUTE COUNT (BEAKER) (test 6.31 K/ L 1.78-5.38 ojhd=515) LYMPHOCYTES ABSOLUTE COUNT (BEAKER) (test 1.07 K/ L 1.32-3.57 eyjw=822) MONOCYTES ABSOLUTE COUNT (BEAKER) (test 0.96 K/ L 0.30-0.82 lwja=576) EOSINOPHILS ABSOLUTE COUNT (BEAKER) (test 0.01 K/ L 0.04-0.54 iyfo=329) BASOPHILS ABSOLUTE COUNT (BEAKER) (test 0.01 K/ L 0.01-0.08 ihfr=670) IMMATURE GRANULOCYTES-RELATIVE PERCENT (BEAKER) 2 % 0-1 (test ageb=7784) RAD, CHEST, 2 [id number] 15:24:00Reason for Exam:->chronic Diastolic heart FailureFINAL REPORT [...] Verified Date/ Time: 11/03/2018 15:24:42 Reading Location: [address] Radiology Reading Room MISCELLANEOUS LAB [id number] 08:22:00 Test Item Value Reference Range Comments SCAN RESULT (test vumv=[id number]) PROTHROMBIN TIME/[id number] 08:37:00 Test Item Value Reference Range Comments PROTIME (BEAKER) (test ndbt=926) 24.8 seconds 11.7-14.7 INR (BEAKER) (test onrv=346) 2.2 <=5.9 RECOMMENDED COUMADIN/WARFARIN INR THERAPY RANGESSTANDARD DOSE: 2.0 - 3.0 Includes: PROPHYLAXIS forvenous thrombosis, systemic embolization; TREATMENT for venous thrombosis and/or pulmonary embolus.HIGH RISK: Target INR is 2.5-3.5 for patients with mechanical heart valves.POCT-GLUCOSE [id number] 08:10:00 Test Item Value Reference Range Comments POC-GLUCOSE METER (BEAKER) 89 mg/dL 70-110 TESTED AT [facility] [address] [facility] (test opcl=4821) [facility] [address] BASIC METABOLIC [id number] 06:29:00 Test Item Value Reference Range Comments SODIUM (BEAKER) (test 134 meq/L 136-145 wqai=779) POTASSIUM (BEAKER) (test 4.2 meq/L 3.5-5.1 ppwb=884) CHLORIDE (BEAKER) (test 97 meq/L 98-107 umoq=470) CO2 (BEAKER) (test 29 meq/L 22-29 wiuh=595) BLOOD UREA NITROGEN 22 mg/dL 7-21 (BEAKER) (test eyxq=472) CREATININE (BEAKER) (test 5.61 mg/dL 0.57-1.25 etvz=259) GLUCOSE RANDOM (BEAKER) 87 mg/dL 70-105 (test eqhh=555) CALCIUM (BEAKER) (test 9.0 mg/dL 8.4-10.2 aast=556) EGFR (BEAKER) (test 13 mL/min/1.73 sq m ESTIMATED GFR IS NOT rgby=5665) ACCURATE CREATININE CLEARANCE IN PREDICTING GLOMERULAR FILTRATION RATE. ESTIMATED GFR IS NOT APPLICABLE FOR DIALYSIS PATIENTS. [id number] 06:28:00 Test Item Value Reference Range Comments MAGNESIUM (BEAKER) (test yigj=928) 1.8 mg/dL 1.6-2.6 [id number] 06:14:00 Test Item Value Reference Range Comments PARTIAL THROMBOPLASTIN TIME (BEAKER) (test 64.7 seconds 22.5-36.0 cyww=840) CBC W/PLT COUNT & AUTO [id number] 05:58:00 Test Item Value Reference Range Comments WHITE BLOOD CELL COUNT (BEAKER) (test muon=762) 5.4 K/ L 3.5-10.5 RED BLOOD CELL COUNT (BEAKER) (test stpi=574) 3.28 M/ L 4.63-6.08 HEMOGLOBIN (BEAKER) (test habl=094) 10.7 GM/DL 13.7-17.5 HEMATOCRIT (BEAKER) (test kmlp=023) 32.8 % 40.1-51.0 MEAN CORPUSCULAR VOLUME (BEAKER) (test ijpz=453) 100.0 fL 79.0-92.2 MEAN CORPUSCULAR HEMOGLOBIN (BEAKER) (test 32.6 pg 25.7-32.2 qyrc=417) MEAN CORPUSCULAR HEMOGLOBIN CONC (BEAKER) (test 32.6 GM/DL 32.3-36.5 wtqa=541) RED CELL DISTRIBUTION WIDTH (BEAKER) (test 14.3 % 11.6-14.4 cjqs=927) PLATELET COUNT (BEAKER) (test gafu=801) 121 K/CU MM 150-450 MEAN PLATELET VOLUME (BEAKER) (test nftc=341) 9.0 fL 9.4-12.4 NUCLEATED RED BLOOD CELLS (BEAKER) (test 0 /100 WBC 0-0 gytg=457) NEUTROPHILS RELATIVE PERCENT (BEAKER) (test 64 % exop=039) LYMPHOCYTES RELATIVE PERCENT (BEAKER) (test 18 % fgko=489) MONOCYTES RELATIVE PERCENT (BEAKER) (test 15 % evox=937) EOSINOPHILS RELATIVE PERCENT (BEAKER) (test 2 % zean=147) BASOPHILS RELATIVE PERCENT (BEAKER) (test 1 % dnet=858) NEUTROPHILS ABSOLUTE COUNT (BEAKER) (test 3.45 K/ L 1.78-5.38 tmix=628) LYMPHOCYTES ABSOLUTE COUNT (BEAKER) (test 0.96 K/ L 1.32-3.57 onyh=996) MONOCYTES ABSOLUTE COUNT (BEAKER) (test 0.78 K/ L 0.30-0.82 ywxy=569) EOSINOPHILS ABSOLUTE COUNT (BEAKER) (test 0.11 K/ L 0.04-0.54 vazl=888) BASOPHILS ABSOLUTE COUNT (BEAKER) (test 0.03 K/ L 0.01-0.08 hpiz=290) IMMATURE GRANULOCYTES-RELATIVE PERCENT (BEAKER) 1 % 0-1 (test hrfs=3661) POCT-GLUCOSE [id number] 21:14:00 Test Item Value Reference Range Comments POC-GLUCOSE METER (BEAKER) 135 mg/dL 70-110 TESTED AT [facility] [address] [facility] (test daoz=5663) [facility] [address] [id number] 19:36:00 Test Item Value Reference Range Comments PARTIAL THROMBOPLASTIN TIME (BEAKER) (test 88.6 seconds 22.5-36.0 nmlz=287) POCT-GLUCOSE [id number] 18:27:00 Test Item Value Reference Range Comments POC-GLUCOSE METER (BEAKER) 88 mg/dL 70-110 TESTED AT [address] (test sndi=7804) [facility] [address] POCT-GLUCOSE [id number] 12:05:00 Test Item Value Reference Range Comments POC-GLUCOSE METER (BEAKER) 92 mg/dL 70-110 TESTED AT [address] (test amks=7904) [place] [address] [id number] 11:46:00 Test Item Value Reference Range Comments PARTIAL THROMBOPLASTIN TIME (BEAKER) (test 74.3 seconds 22.5-36.0 sqrm=941) POCT-GLUCOSE [id number] 10:36:00 Test Item Value Reference Range Comments POC-GLUCOSE METER (BEAKER) 101 mg/dL 70-110 TESTED AT [address] (test bbre=7042) [facility] [address] POCT-GLUCOSE [id number] 07:10:00 Test Item Value Reference Range Comments POC-GLUCOSE METER (BEAKER) 92 mg/dL 70-110 TESTED AT [address] (test bxyd=6612) [facility] [id number] PROTHROMBIN [id number] 01:41:00 Test Item Value Reference Range Comments PROTIME (BEAKER) (test uefs=325) 22.8 seconds 11.7-14.7 INR (BEAKER) (test qpwf=958) 2.0 <=5.9 RECOMMENDED COUMADIN/WARFARIN INR THERAPY RANGESSTANDARD DOSE: 2.0 - 3.0 Includes: PROPHYLAXIS forvenous thrombosis, systemic embolization; TREATMENT for venous thrombosis and/or pulmonary embolus.HIGH RISK: Target INR is 2.5-3.5 for patients with mechanical heart valves.While on warfarin.[id number] 01:41 :00 Test Item Value Reference Range Comments PARTIAL THROMBOPLASTIN TIME (BEAKER) (test 52.3 seconds 22.5-36.0 zqru=468) While on warfarin.BASIC METABOLIC [id number] 01:37:00 Test Item Value Reference Range Comments SODIUM (BEAKER) (test 134 meq/L 136-145 tiwi=525) POTASSIUM (BEAKER) (test 4.6 meq/L 3.5-5.1 cfwe=632) CHLORIDE (BEAKER) (test 99 meq/L 98-107 lxpj=556) CO2 (BEAKER) (test 24 meq/L 22-29 fkqn=546) BLOOD UREA NITROGEN 35 mg/dL 7-21 (BEAKER) (test eabq=321) CREATININE (BEAKER) (test 7.31 mg/dL 0.57-1.25 ehoe=996) GLUCOSE RANDOM (BEAKER) 87 mg/dL 70-105 (test laym=466) CALCIUM (BEAKER) (test 9.2 mg/dL 8.4-10.2 jydm=936) EGFR (BEAKER) (test 9 mL/min/1.73 sq m ESTIMATED GFR IS NOT aqbb=9574) ACCURATE CREATININE CLEARANCE IN PREDICTING GLOMERULAR FILTRATION RATE. ESTIMATED GFR IS NOT APPLICABLE FOR DIALYSIS PATIENTS. [id number] 01:32:00 Test Item Value Reference Range Comments MAGNESIUM (BEAKER) (test ctag=560) 1.8 mg/dL 1.6-2.6 CBC W/PLT COUNT & AUTO [id number] 01:18:00 Test Item Value Reference Range Comments WHITE BLOOD CELL COUNT (BEAKER) (test eevn=343) 6.7 K/ L 3.5-10.5 RED BLOOD CELL COUNT (BEAKER) (test jgbg=299) 3.38 M/ L 4.63-6.08 HEMOGLOBIN (BEAKER) (test jkbv=726) 10.9 GM/DL 13.7-17.5 HEMATOCRIT (BEAKER) (test ewnw=995) 33.6 % 40.1-51.0 MEAN CORPUSCULAR VOLUME (BEAKER) (test dnbz=015) 99.4 fL 79.0-92.2 MEAN CORPUSCULAR HEMOGLOBIN (BEAKER) (test 32.2 pg 25.7-32.2 bfvl=976) MEAN CORPUSCULAR HEMOGLOBIN CONC (BEAKER) (test 32.4 GM/DL 32.3-36.5 feax=103) RED CELL DISTRIBUTION WIDTH (BEAKER) (test 14.1 % 11.6-14.4 dvnj=002) PLATELET COUNT (BEAKER) (test lalq=681) 160 K/CU MM 150-450 MEAN PLATELET VOLUME (BEAKER) (test jsvg=933) 9.0 fL 9.4-12.4 NUCLEATED RED BLOOD CELLS (BEAKER) (test 0 /100 WBC 0-0 skjs=593) NEUTROPHILS RELATIVE PERCENT (BEAKER) (test 70 % cdpm=240) LYMPHOCYTES RELATIVE PERCENT (BEAKER) (test 15 % ocvb=805) MONOCYTES RELATIVE PERCENT (BEAKER) (test 12 % rqur=384) EOSINOPHILS RELATIVE PERCENT (BEAKER) (test 2 % nviq=607) BASOPHILS RELATIVE PERCENT (BEAKER) (test 1 % xsqz=700) NEUTROPHILS ABSOLUTE COUNT (BEAKER) (test 4.66 K/ L 1.78-5.38 lgnm=961) LYMPHOCYTES ABSOLUTE COUNT (BEAKER) (test 0.97 K/ L 1.32-3.57 hxpq=579) MONOCYTES ABSOLUTE COUNT (BEAKER) (test 0.82 K/ L 0.30-0.82 icrz=470) EOSINOPHILS ABSOLUTE COUNT (BEAKER) (test 0.16 K/ L 0.04-0.54 bumy=908) BASOPHILS ABSOLUTE COUNT (BEAKER) (test 0.05 K/ L 0.01-0.08 cqun=959) IMMATURE GRANULOCYTES-RELATIVE PERCENT (BEAKER) 1 % 0-1 (test qein=6206) [id number] 23:23:00 Test Item Value Reference Range Comments PARTIAL THROMBOPLASTIN TIME (BEAKER) (test 125.2 seconds 22.5-36.0 qswn=606) POCT-GLUCOSE [id number] 21:19:00 Test Item Value Reference Range Comments POC-GLUCOSE METER (BEAKER) 165 mg/dL 70-110 TESTED AT [address] (test xknc=4226) [facility] [address] POCT-GLUCOSE [id number] 18:34:00 Test Item Value Reference Range Comments POC-GLUCOSE METER (BEAKER) 92 mg/dL 70-110 TESTED AT [address] (test nyba=1510) [facility] [address] [id number] 17:17:00 Test Item Value Reference Range Comments PARTIAL THROMBOPLASTIN TIME (BEAKER) (test 75.2 seconds 22.5-36.0 hhmv=764) POCT-GLUCOSE [id number] 12:48:00 Test Item Value Reference Range Comments POC-GLUCOSE METER (BEAKER) 105 mg/dL 70-110 TESTED AT [address] (test pfkk=6160) [place] [address] RAD, CHEST, 1 VIEW, NON [id number] 11:00:00Reason for exam:->eval right effusionShould this be performed at the bedside?->YesFINAL REPORT Comparison: 08/15/2018 TECHNIQUE: Single view of the chest FINDINGS : Small to moderate right pleural effusion is stable. Small left pleural effusion may be slightly increased. Vascular congestion seen. No other significant change. Signed: Kyle Rome Verified Date/Time: 2017 11:00:36 Reading Location: [facility] Radiology Reading Room Electronicallysigned by: KYLE ROME M.D. on 08/18/2018 11:00 [id number] 09:48:00 Test Item Value Reference Range Comments PARTIAL THROMBOPLASTIN TIME (BEAKER) (test 48.8 seconds 22.5-36.0 qudx=836) POCT-GLUCOSE [id number] 07:37:00 Test Item Value Reference Range Comments POC-GLUCOSE METER (BEAKER) 96 mg/dL 70-110 TESTED AT [address] (test lgny=2129) [place] [address] BASIC METABOLIC [id number] 02:24:00 Test Item Value Reference Range Comments SODIUM (BEAKER) (test 136 meq/L 136-145 vksi=190) POTASSIUM (BEAKER) (test 4.4 meq/L 3.5-5.1 xgdb=434) CHLORIDE (BEAKER) (test 99 meq/L 98-107 pslg=865) CO2 (BEAKER) (test 26 meq/L 22-29 jlgr=758) BLOOD UREA NITROGEN 29 mg/dL 7-21 (BEAKER) (test vsvu=053) CREATININE (BEAKER) (test 5.95 mg/dL 0.57-1.25 fqhk=662) GLUCOSE RANDOM (BEAKER) 96 mg/dL 70-105 (test adre=404) CALCIUM (BEAKER) (test 9.1 mg/dL 8.4-10.2 xlcj=174) EGFR (BEAKER) (test 12 mL/min/1.73 sq m ESTIMATED GFR IS NOT gjig=1228) ACCURATE CREATININE CLEARANCE IN PREDICTING GLOMERULAR FILTRATION RATE. ESTIMATED GFR IS NOT APPLICABLE FOR DIALYSIS PATIENTS. [id number] 02:22:00 Test Item Value Reference Range Comments MAGNESIUM (BEAKER) (test iwul=567) 1.7 mg/dL 1.6-2.6 [id number] 02:15:00 Test Item Value Reference Range Comments PARTIAL THROMBOPLASTIN TIME (BEAKER) (test 98.9 seconds 22.5-36.0 vsyd=772) PROTHROMBIN TIME/[id number] 02:13:00 Test Item Value Reference Range Comments PROTIME (BEAKER) (test unso=392) 21.6 seconds 11.7-14.7 INR (BEAKER) (test wzaf=316) 1.9 <=5.9 RECOMMENDED COUMADIN/WARFARIN INR THERAPY RANGESSTANDARD DOSE: 2.0 - 3.0 Includes: PROPHYLAXIS forvenous thrombosis, systemic embolization; TREATMENT for venous thrombosis and/or pulmonary embolus.HIGH RISK: Target INR is 2.5-3.5 for patients with mechanical heart valves.CBC W/PLT COUNT & AUTO [id number] 02:09:00 Test Item Value Reference Range Comments WHITE BLOOD CELL COUNT (BEAKER) (test ccfu=730) 6.8 K/ L 3.5-10.5 RED BLOOD CELL COUNT (BEAKER) (test buch=206) 3.29 M/ L 4.63-6.08 HEMOGLOBIN (BEAKER) (test tfqx=783) 10.7 GM/DL 13.7-17.5 HEMATOCRIT (BEAKER) (test xcwg=946) 33.2 % 40.1-51.0 MEAN CORPUSCULAR VOLUME (BEAKER) (test rynd=308) 100.9 fL 79.0-92.2 MEAN CORPUSCULAR HEMOGLOBIN (BEAKER) (test 32.5 pg 25.7-32.2 ooac=704) MEAN CORPUSCULAR HEMOGLOBIN CONC (BEAKER) (test 32.2 GM/DL 32.3-36.5 elix=787) RED CELL DISTRIBUTION WIDTH (BEAKER) (test 14.2 % 11.6-14.4 owts=981) PLATELET COUNT (BEAKER) (test sfzw=437) 157 K/CU MM 150-450 MEAN PLATELET VOLUME (BEAKER) (test ogck=332) 9.1 fL 9.4-12.4 NUCLEATED RED BLOOD CELLS (BEAKER) (test 0 /100 WBC 0-0 nyap=630) NEUTROPHILS RELATIVE PERCENT (BEAKER) (test 66 % bfvb=353) LYMPHOCYTES RELATIVE PERCENT (BEAKER) (test 16 % hzbj=472) MONOCYTES RELATIVE PERCENT (BEAKER) (test 15 % ofnl=181) EOSINOPHILS RELATIVE PERCENT (BEAKER) (test 3 % xosn=784) BASOPHILS RELATIVE PERCENT (BEAKER) (test 1 % xsif=428) NEUTROPHILS ABSOLUTE COUNT (BEAKER) (test 4.48 K/ L 1.78-5.38 pcyq=916) LYMPHOCYTES ABSOLUTE COUNT (BEAKER) (test 1.06 K/ L 1.32-3.57 alfr=763) MONOCYTES ABSOLUTE COUNT (BEAKER) (test 0.99 K/ L 0.30-0.82 vvlf=180) EOSINOPHILS ABSOLUTE COUNT (BEAKER) (test 0.17 K/ L 0.04-0.54 mydq=600) BASOPHILS ABSOLUTE COUNT (BEAKER) (test 0.05 K/ L 0.01-0.08 sesf=766) IMMATURE GRANULOCYTES-RELATIVE PERCENT (BEAKER) 1 % 0-1 (test hxnt=6211) POCT-GLUCOSE [id number] 21:51:00 Test Item Value Reference Range Comments POC-GLUCOSE METER (BEAKER) 98 mg/dL 70-110 TESTED AT [facility] [address] [place] [address] (test ssjt=3465) [facility] [address] [id number] 18:51:00 Test Item Value Reference Range Comments PARTIAL THROMBOPLASTIN TIME (BEAKER) (test 56.1 seconds 22.5-36.0 dcsn=214) [id number] 17:06:00 Test Item Value Reference Range Comments PARTIAL THROMBOPLASTIN TIME (BEAKER) (test 121.9 seconds 22.5-36.0 wkyx=879) POCT-GLUCOSE [id number] 16:46:00 Test Item Value Reference Range Comments POC-GLUCOSE METER (BEAKER) 135 mg/dL 70-110 TESTED AT [facility] [address] [facility] (test aelj=5289) [facility] [address] POCT-GLUCOSE [id number] 13:28:00 Test Item Value Reference Range Comments POC-GLUCOSE METER (BEAKER) 96 mg/dL 70-110 TESTED AT [facility] [address] [facility] (test yrwz=7825) [facility] [address] [id number] 09:15:00 Test Item Value Reference Range Comments PARTIAL THROMBOPLASTIN TIME (BEAKER) (test 58.1 seconds 22.5-36.0 mave=735) BASIC METABOLIC [id number] 07:31:00 Test Item Value Reference Range Comments SODIUM (BEAKER) (test 136 meq/L 136-145 xsrw=543) POTASSIUM (BEAKER) (test 4.0 meq/L 3.5-5.1 iclc=847) CHLORIDE (BEAKER) (test 101 meq/L 98-107 qiow=863) CO2 (BEAKER) (test 25 meq/L 22-29 semp=886) BLOOD UREA NITROGEN 21 mg/dL 7-21 (BEAKER) (test cjsp=672) CREATININE (BEAKER) (test 4.75 mg/dL 0.57-1.25 uoej=702) GLUCOSE RANDOM (BEAKER) 93 mg/dL 70-105 (test udwp=343) CALCIUM (BEAKER) (test 8.9 mg/dL 8.4-10.2 exoz=775) EGFR (BEAKER) (test 15 mL/min/1.73 sq m ESTIMATED GFR IS NOT eiex=0571) ACCURATE CREATININE CLEARANCE IN PREDICTING GLOMERULAR FILTRATION RATE. ESTIMATED GFR IS NOT APPLICABLE FOR DIALYSIS PATIENTS. [id number] 07:19:00 Test Item Value Reference Range Comments PHOSPHORUS (BEAKER) (test ogdi=983) 3.7 mg/dL 2.3-4.7 [id number] 07:19:00 Test Item Value Reference Range Comments MAGNESIUM (BEAKER) (test brsn=530) 1.7 mg/dL 1.6-2.6 [id number] 07:07:00 Test Item Value Reference Range Comments PARTIAL THROMBOPLASTIN TIME (BEAKER) (test 124.4 seconds 22.5-36.0 opth=973) PROTHROMBIN TIME/[id number] 07:02:00 Test Item Value Reference Range Comments PROTIME (BEAKER) (test lbda=357) 19.8 seconds 11.7-14.7 INR (BEAKER) (test hhua=597) 1.7 <=5.9 RECOMMENDED COUMADIN/WARFARIN INR THERAPY RANGESSTANDARD DOSE: 2.0 - 3.0 Includes: PROPHYLAXIS forvenous thrombosis, systemic embolization; TREATMENT for venous thrombosis and/or pulmonary embolus.HIGH RISK: Target INR is 2.5-3.5 for patients with mechanical heart valves.While on warfarin.PROTHROMBIN TIME/ [id number] 07:02:00 Test Item Value Reference Range Comments PROTIME (BEAKER) (test rccm=951) 19.8 seconds 11.7-14.7 INR (BEAKER) (test mmym=943) 1.7 <=5.9 RECOMMENDED COUMADIN/WARFARIN INR THERAPY RANGESSTANDARD DOSE: 2.0 - 3.0 Includes: PROPHYLAXIS forvenous thrombosis, systemic embolization; TREATMENT for venous thrombosis and/or pulmonary embolus.HIGH RISK: Target INR is 2.5-3.5 for patients with mechanical heart valves.CBC W/PLT COUNT & AUTO [id number] 06:53:00 Test Item Value Reference Range Comments WHITE BLOOD CELL COUNT (BEAKER) (test wjvx=271) 6.3 K/ L 3.5-10.5 RED BLOOD CELL COUNT (BEAKER) (test ylfy=705) 3.34 M/ L 4.63-6.08 HEMOGLOBIN (BEAKER) (test idao=324) 10.7 GM/DL 13.7-17.5 HEMATOCRIT (BEAKER) (test casv=197) 33.6 % 40.1-51.0 MEAN CORPUSCULAR VOLUME (BEAKER) (test jrng=317) 100.6 fL 79.0-92.2 MEAN CORPUSCULAR HEMOGLOBIN (BEAKER) (test 32.0 pg 25.7-32.2 jhst=742) MEAN CORPUSCULAR HEMOGLOBIN CONC (BEAKER) (test 31.8 GM/DL 32.3-36.5 fqnw=607) RED CELL DISTRIBUTION WIDTH (BEAKER) (test 14.2 % 11.6-14.4 urpp=908) PLATELET COUNT (BEAKER) (test peus=050) 159 K/CU MM 150-450 MEAN PLATELET VOLUME (BEAKER) (test cuga=725) 9.0 fL 9.4-12.4 NUCLEATED RED BLOOD CELLS (BEAKER) (test 0 /100 WBC 0-0 tzeh=284) NEUTROPHILS RELATIVE PERCENT (BEAKER) (test 67 % kugo=286) LYMPHOCYTES RELATIVE PERCENT (BEAKER) (test 15 % adqs=305) MONOCYTES RELATIVE PERCENT (BEAKER) (test 14 % ehcl=520) EOSINOPHILS RELATIVE PERCENT (BEAKER) (test 2 % pzic=277) BASOPHILS RELATIVE PERCENT (BEAKER) (test 1 % qudm=552) NEUTROPHILS ABSOLUTE COUNT (BEAKER) (test 4.25 K/ L 1.78-5.38 tpxw=245) LYMPHOCYTES ABSOLUTE COUNT (BEAKER) (test 0.96 K/ L 1.32-3.57 thnc=736) MONOCYTES ABSOLUTE COUNT (BEAKER) (test 0.88 K/ L 0.30-0.82 onqx=148) EOSINOPHILS ABSOLUTE COUNT (BEAKER) (test 0.13 K/ L 0.04-0.54 grcg=600) BASOPHILS ABSOLUTE COUNT (BEAKER) (test 0.04 K/ L 0.01-0.08 zwtt=058) IMMATURE GRANULOCYTES-RELATIVE PERCENT (BEAKER) 1 % 0-1 (test usyo=4817) [id number] 23:01:00 Test Item Value Reference Range Comments PARTIAL THROMBOPLASTIN TIME (BEAKER) (test 46.5 seconds 22.5-36.0 rujy=416) POCT-GLUCOSE [id number] 22:45:00 Test Item Value Reference Range Comments POC-GLUCOSE METER (BEAKER) 144 mg/dL 70-110 TESTED AT [address] (test vang=3265) [place] [address] [id number] 15:02:00 Test Item Value Reference Range Comments PARTIAL THROMBOPLASTIN TIME (BEAKER) (test 56.1 seconds 22.5-36.0 xwzk=951) POCT-GLUCOSE [id number] 14:39:00 Test Item Value Reference Range Comments POC-GLUCOSE METER (BEAKER) 189 mg/dL 70-110 TESTED AT [address] (test ouql=0356) [place] [address] HIV-1 PCR, [id number] 13:58:00 Test Item Value Reference Range Comments HIV-1 NUMERIC RESULT (BEAKER) (test rbru=1566) 170 Cp/mL <20 This test uses a Real-Time Polymerase Chain Reaction (RT-PCR) methodology to detect a highly conserved region of the HIV-1 gag gene and was performed using the [employer]ICH AmpliPrep/ERICH TaqMan HIV-1 test kit version 2.0 ([employer]Reportable range for this assay is 20 - 10,000,000 copies per mL (1.3 - 7.0 Log copies/mL).[id number] 12:54:00 Test Item Value Reference Range Comments PARTIAL THROMBOPLASTIN TIME (BEAKER) (test 143.6 seconds 22.5-36.0 rfvp=135) [id number] 10:00:00Medical Cytology Report Case: [id number] Authorizing Provider: Sd Solano MD Collected: 08/13/2018 1803 Ordering Location: [address] Received: 08/14/2018 0908 Service Pathologist: Yamil Hamm MD Specimen: Pleural, Right RIGHT PLEURAL FLUID (CYTOSPINS AND CELL BLOCK): - NO MALIGNANT CELLS IDENTIFIED (SEE COMMENT) Signing Pathologist Direct Phone Line: [phone] signed by Yamil Hamm MD on 08/16/2018 [...] thoracentesis may be considered when fluid reaccumulates. [address]1239, 48829, 71024, 34140 x 2Left pleural effusion, history of AIDS, Kaposi's sarcoma, hepatitis C.RIGHT PLEURAL FLUID 300 mls bloody; 4 cytospins, cell blockCollected: [id number]: [id number] interpretation of this case included the use of immunohistochemistry or special stains. Please see the immunohistochemistry results in the COMMENT section. Immunohistochemistry technical testing was performed at [facility], Pathology Laboratory where it was developed [...] Improvement Amendments of 1988 (CLIA-88) as qualified [facility] high complexity clinical laboratory testing.[facility], Department of Pathology, [address] [place] [address], Tel [facility], [address] [place] [address], OgsrbcMonterey Park Hospital, Department of Pathology, [address] [place] [address], Tel [phone]-UXYBXYN [id number] 08:29:00 Test Item Value Reference Range Comments POC-GLUCOSE METER (BEAKER) 96 mg/dL 70-110 TESTED AT [address] (test sxtz=2744) [place] [address] BODY FLUID CULTURE + GRAM [id number] 07:54:00 Test Item Value Reference Range Comments CULTURE (BEAKER) (test ayqk=8906) No growth GRAM STAIN RESULT (BEAKER) (test <1+ WBCs hjmc=8059) GRAM STAIN RESULT (BEAKER) (test No organisms seen enpf=24912) BASIC METABOLIC [id number] 06:30:00 Test Item Value Reference Range Comments SODIUM (BEAKER) (test 132 meq/L 136-145 upte=437) POTASSIUM (BEAKER) (test 4.0 meq/L 3.5-5.1 kgxh=091) CHLORIDE (BEAKER) (test 99 meq/L 98-107 naob=827) CO2 (BEAKER) (test 21 meq/L 22-29 wzop=566) BLOOD UREA NITROGEN 41 mg/dL 7-21 (BEAKER) (test cqbj=213) CREATININE (BEAKER) (test 6.80 mg/dL 0.57-1.25 mlva=352) GLUCOSE RANDOM (BEAKER) 95 mg/dL 70-105 (test nrkh=076) CALCIUM (BEAKER) (test 8.7 mg/dL 8.4-10.2 fmaq=526) EGFR (BEAKER) (test 10 mL/min/1.73 sq m ESTIMATED GFR IS NOT tmzp=1828) ACCURATE CREATININE CLEARANCE IN PREDICTING GLOMERULAR FILTRATION RATE. ESTIMATED GFR IS NOT APPLICABLE FOR DIALYSIS PATIENTS. [id number] 06:26:00 Test Item Value Reference Range Comments MAGNESIUM (BEAKER) (test sqqq=590) 1.6 mg/dL 1.6-2.6 [id number] 05:48:00 Test Item Value Reference Range Comments PARTIAL THROMBOPLASTIN TIME (BEAKER) (test 80.3 seconds 22.5-36.0 dofa=976) While on warfarin.PROTHROMBIN TIME/[id number] 05:46:00 Test Item Value Reference Range Comments PROTIME (BEAKER) (test ksvh=084) 18.4 seconds 11.7-14.7 INR (BEAKER) (test wnrl=693) 1.5 <=5.9 RECOMMENDED COUMADIN/WARFARIN INR THERAPY RANGESSTANDARD DOSE: 2.0 - 3.0 Includes: PROPHYLAXIS forvenous thrombosis, systemic embolization; TREATMENT for venous thrombosis and/or pulmonary embolus.HIGH RISK: Target INR is 2.5-3.5 for patients with mechanical heart valves.While on warfarin.CBC W/PLT COUNT &amp ; AUTO [id number] 05:28:00 Test Item Value Reference Range Comments WHITE BLOOD CELL COUNT (BEAKER) (test xptb=965) 7.8 K/ L 3.5-10.5 RED BLOOD CELL COUNT (BEAKER) (test qhqg=196) 3.27 M/ L 4.63-6.08 HEMOGLOBIN (BEAKER) (test onor=226) 10.5 GM/DL 13.7-17.5 HEMATOCRIT (BEAKER) (test qmby=144) 33.2 % 40.1-51.0 MEAN CORPUSCULAR VOLUME (BEAKER) (test pnvv=322) 101.5 fL 79.0-92.2 MEAN CORPUSCULAR HEMOGLOBIN (BEAKER) (test 32.1 pg 25.7-32.2 ciuz=382) MEAN CORPUSCULAR HEMOGLOBIN CONC (BEAKER) (test 31.6 GM/DL 32.3-36.5 okus=544) RED CELL DISTRIBUTION WIDTH (BEAKER) (test 13.8 % 11.6-14.4 oovc=285) PLATELET COUNT (BEAKER) (test uoxc=752) 155 K/CU MM 150-450 MEAN PLATELET VOLUME (BEAKER) (test wjmh=780) 9.0 fL 9.4-12.4 NUCLEATED RED BLOOD CELLS (BEAKER) (test 0 /100 WBC 0-0 fqjw=964) NEUTROPHILS RELATIVE PERCENT (BEAKER) (test 71 % aiay=690) LYMPHOCYTES RELATIVE PERCENT (BEAKER) (test 13 % whir=614) MONOCYTES RELATIVE PERCENT (BEAKER) (test 13 % okwd=839) EOSINOPHILS RELATIVE PERCENT (BEAKER) (test 2 % kguh=424) BASOPHILS RELATIVE PERCENT (BEAKER) (test 1 % jgql=909) NEUTROPHILS ABSOLUTE COUNT (BEAKER) (test 5.49 K/ L 1.78-5.38 qheh=817) LYMPHOCYTES ABSOLUTE COUNT (BEAKER) (test 1.00 K/ L 1.32-3.57 jtsh=027) MONOCYTES ABSOLUTE COUNT (BEAKER) (test 1.03 K/ L 0.30-0.82 pgqm=353) EOSINOPHILS ABSOLUTE COUNT (BEAKER) (test 0.16 K/ L 0.04-0.54 xwuv=530) BASOPHILS ABSOLUTE COUNT (BEAKER) (test 0.05 K/ L 0.01-0.08 kfxi=091) IMMATURE GRANULOCYTES-RELATIVE PERCENT (BEAKER) 1 % 0-1 (test uyok=6983) [id number] 22:09:00 Test Item Value Reference Range Comments PARTIAL THROMBOPLASTIN TIME (BEAKER) (test 61.5 seconds 22.5-36.0 pios=089) RAD, CHEST, 1 VIEW, NON [id number] 20:20:00Reason for exam:->eval right effusionShould this be [...] Anderson Verified Date/Time: 08/15/2018 20:20:24 Reading Location: [facility] Radiology Reading Room Electronically signed by: YEVGENIY ANDERSON M.D. on 08:20 PMPOCT-GLUCOSE [id number] 19:05:00 Test Item Value Reference Range Comments POC-GLUCOSE METER (BEAKER) 87 mg/dL 70-110 TESTED AT [address] (test cver=1224) [place] [address] POCT-GLUCOSE [id number] 13:12:00 Test Item Value Reference Range Comments POC-GLUCOSE METER (BEAKER) 162 mg/dL 70-110 TESTED AT [address] (test pzgp=3899) [place] [address] [id number] 12:48:00 Test Item Value Reference Range Comments PARTIAL THROMBOPLASTIN TIME (BEAKER) (test 89.1 seconds 22.5-36.0 cmeu=918) POCT-GLUCOSE [id number] 09:58:00 Test Item Value Reference Range Comments POC-GLUCOSE METER (BEAKER) 229 mg/dL 70-110 TESTED AT [address] (test mmbj=5030) [place] [id number] BASIC METABOLIC [id number] 05:40:00 Test Item Value Reference Range Comments SODIUM (BEAKER) (test 137 meq/L 136-145 atpf=116) POTASSIUM (BEAKER) (test 3.6 meq/L 3.5-5.1 qlpm=188) CHLORIDE (BEAKER) (test 102 meq/L 98-107 qalj=207) CO2 (BEAKER) (test 25 meq/L 22-29 kcpg=209) BLOOD UREA NITROGEN 28 mg/dL 7-21 (BEAKER) (test qars=397) CREATININE (BEAKER) (test 5.36 mg/dL 0.57-1.25 tkwl=790) GLUCOSE RANDOM (BEAKER) 114 mg/dL 70-105 (test mdsy=117) CALCIUM (BEAKER) (test 8.6 mg/dL 8.4-10.2 ivqj=110) EGFR (BEAKER) (test 13 mL/min/1.73 sq m ESTIMATED GFR IS NOT xbqc=1341) ACCURATE CREATININE CLEARANCE IN PREDICTING GLOMERULAR FILTRATION RATE. ESTIMATED GFR IS NOT APPLICABLE FOR DIALYSIS PATIENTS. CBC W/PLT COUNT & AUTO [id number] 05:38:00 Test Item Value Reference Range Comments WHITE BLOOD CELL COUNT (BEAKER) (test jqrj=980) 6.9 K/ L 3.5-10.5 RED BLOOD CELL COUNT (BEAKER) (test qphg=736) 3.13 M/ L 4.63-6.08 HEMOGLOBIN (BEAKER) (test oezk=611) 10.3 GM/DL 13.7-17.5 HEMATOCRIT (BEAKER) (test ukax=790) 32.2 % 40.1-51.0 MEAN CORPUSCULAR VOLUME (BEAKER) (test mauq=631) 102.9 fL 79.0-92.2 MEAN CORPUSCULAR HEMOGLOBIN (BEAKER) (test 32.9 pg 25.7-32.2 knck=200) MEAN CORPUSCULAR HEMOGLOBIN CONC (BEAKER) (test 32.0 GM/DL 32.3-36.5 cnpl=596) RED CELL DISTRIBUTION WIDTH (BEAKER) (test 14.0 % 11.6-14.4 tnds=853) PLATELET COUNT (BEAKER) (test juoc=935) 140 K/CU MM 150-450 MEAN PLATELET VOLUME (BEAKER) (test fvsg=297) 9.0 fL 9.4-12.4 NUCLEATED RED BLOOD CELLS (BEAKER) (test 0 /100 WBC 0-0 aduh=879) NEUTROPHILS RELATIVE PERCENT (BEAKER) (test 67 % odgx=412) LYMPHOCYTES RELATIVE PERCENT (BEAKER) (test 14 % pbod=598) MONOCYTES RELATIVE PERCENT (BEAKER) (test 16 % hhsq=867) EOSINOPHILS RELATIVE PERCENT (BEAKER) (test 1 % oqqg=327) BASOPHILS RELATIVE PERCENT (BEAKER) (test 1 % umdx=793) NEUTROPHILS ABSOLUTE COUNT (BEAKER) (test 4.63 K/ L 1.78-5.38 aftp=571) LYMPHOCYTES ABSOLUTE COUNT (BEAKER) (test 0.96 K/ L 1.32-3.57 bcbl=050) MONOCYTES ABSOLUTE COUNT (BEAKER) (test 1.13 K/ L 0.30-0.82 jdxm=559) EOSINOPHILS ABSOLUTE COUNT (BEAKER) (test 0.10 K/ L 0.04-0.54 fbhc=912) BASOPHILS ABSOLUTE COUNT (BEAKER) (test 0.05 K/ L 0.01-0.08 qlqp=869) IMMATURE GRANULOCYTES-RELATIVE PERCENT (BEAKER) 0 % 0-1 (test lpgp=7288) [id number] 05:28:00 Test Item Value Reference Range Comments MAGNESIUM (BEAKER) (test oumz=328) 1.8 mg/dL 1.6-2.6 [id number] 04:47:00 Test Item Value Reference Range Comments PARTIAL THROMBOPLASTIN TIME (BEAKER) (test 60.9 seconds 22.5-36.0 jqaf=522) PROTHROMBIN [id number] 04:46:00 Test Item Value Reference Range Comments PROTIME (BEAKER) (test juwa=673) 17.9 seconds 11.7-14.7 INR (BEAKER) (test udnx=730) 1.5 <=5.9 RECOMMENDED COUMADIN/WARFARIN INR THERAPY RANGESSTANDARD DOSE: 2.0 - 3.0 Includes: PROPHYLAXIS forvenous thrombosis, systemic embolization; TREATMENT for venous thrombosis and/or pulmonary embolus.HIGH RISK: Target INR is 2.5-3.5 for patients with mechanical heart valves.[id number] 20:56:00 Test Item Value Reference Range Comments PARTIAL THROMBOPLASTIN TIME (BEAKER) (test 52.1 seconds 22.5-36.0 jtle=460) CT, CHEST, WITHOUT [id number] 19:06:00S/p fall in Nov--> right effusion, tapped [...] MDReport Verified Date/Time: 08/14/2018 19:06:09 Reading Location: [address] Reading Room [id number] 12:40:00 Test Item Value Reference Range Comments PARTIAL THROMBOPLASTIN TIME (BEAKER) (test 48.4 seconds 22.5-36.0 vvrz=687) CD4 T CELL [id number] 11:15:00 Test Item Value Reference Range Comments TOTAL LYMPHOCYTES FC (BEAKER) (test pbyu=4876) 935 /cu mm CD3+ TOTAL T CELLS % FC (BEAKER) (test oaag=4068) 78 % 49-84 CD3+ TOTAL T CELLS ABSOLUTE FC (BEAKER) (test 726 /cu mm 603-2,990 rmzt=9780) CD3+/CD8+ T SUPPRESSOR CELLS % FC (BEAKER) (test 33 % 10-40 wyhd=4954) CD3+/CD8+ T SUPPRESSOR CELLS ABS FC (BEAKER) 309 /cu mm 125-1,312 (test hmrn=7310) CD3+/CD4+ T HELPER CELLS % FC (BEAKER) (test 43 % 28-63 whuu=4692) CD3+/CD4+ T HELPER CELLS ABS FC (BEAKER) (test 399 /cu mm 441-2,156 rxug=6712) CD4/CD8 RATIO FC (BEAKER) (test jgyu=4838) 1.29 0.70-3.23 CD16+/CD56+ NATURAL KILLER CELLS % FC (BEAKER) 11 % 4-25 (test pleu=4969) CD16+/CD56+ NATURAL KILLER CELLS ABS FC (BEAKER) 107 /cu mm 95-640 (test zoiq=0425) CD19+ TOTAL B CELLS % FC (BEAKER) (test 11 % 6-27 jqzb=2054) CD19+ TOTAL B CELLS ABS FC (BEAKER) (test 101 /cu mm 107-698 bvba=8239) [id number] 10:48:00 Test Item Value Reference Range Comments PHOSPHORUS (BEAKER) (test tmum=636) 5.2 mg/dL 2.3-4.7 BASIC METABOLIC [id number] 07:13:00 Test Item Value Reference Range Comments SODIUM (BEAKER) (test 132 meq/L 136-145 frmp=955) POTASSIUM (BEAKER) (test 3.6 meq/L 3.5-5.1 yvhv=294) CHLORIDE (BEAKER) (test 94 meq/L 98-107 trjf=920) CO2 (BEAKER) (test 24 meq/L 22-29 hwsi=233) BLOOD UREA NITROGEN 49 mg/dL 7-21 (BEAKER) (test joah=057) CREATININE (BEAKER) (test 7.61 mg/dL 0.57-1.25 zgal=255) GLUCOSE RANDOM (BEAKER) 99 mg/dL 70-105 (test iixe=462) CALCIUM (BEAKER) (test 8.5 mg/dL 8.4-10.2 teea=165) EGFR (BEAKER) (test 9 mL/min/1.73 sq m ESTIMATED GFR IS NOT uqiz=8784) ACCURATE CREATININE CLEARANCE IN PREDICTING GLOMERULAR FILTRATION RATE. ESTIMATED GFR IS NOT APPLICABLE FOR DIALYSIS PATIENTS. [id number] 07:11:00 Test Item Value Reference Range Comments MAGNESIUM (BEAKER) (test pkyh=036) 1.8 mg/dL 1.6-2.6 [id number] 07:00:00 Test Item Value Reference Range Comments PARTIAL THROMBOPLASTIN TIME (BEAKER) (test 59.2 seconds 22.5-36.0 bhma=833) PROTHROMBIN [id number] 06:59:00 Test Item Value Reference Range Comments PROTIME (BEAKER) (test zxbn=178) 18.1 seconds 11.7-14.7 INR (BEAKER) (test ovth=648) 1.5 <=5.9 RECOMMENDED COUMADIN/WARFARIN INR THERAPY RANGESSTANDARD DOSE: 2.0 - 3.0 Includes: PROPHYLAXIS forvenous thrombosis, systemic embolization; TREATMENT for venous thrombosis and/or pulmonary embolus.HIGH RISK: Target INR is 2.5-3.5 for patients with mechanical heart valves.CBC W/PLT COUNT & AUTO [id number] 06:57:00 Test Item Value Reference Range Comments WHITE BLOOD CELL COUNT (BEAKER) (test oebm=908) 5.8 K/ L 3.5-10.5 RED BLOOD CELL COUNT (BEAKER) (test vucu=782) 3.20 M/ L 4.63-6.08 HEMOGLOBIN (BEAKER) (test iqef=085) 10.4 GM/DL 13.7-17.5 HEMATOCRIT (BEAKER) (test krzn=908) 32.1 % 40.1-51.0 MEAN CORPUSCULAR VOLUME (BEAKER) (test bjdk=961) 100.3 fL 79.0-92.2 MEAN CORPUSCULAR HEMOGLOBIN (BEAKER) (test 32.5 pg 25.7-32.2 ndvc=068) MEAN CORPUSCULAR HEMOGLOBIN CONC (BEAKER) (test 32.4 GM/DL 32.3-36.5 totp=864) RED CELL DISTRIBUTION WIDTH (BEAKER) (test 13.8 % 11.6-14.4 hgac=596) PLATELET COUNT (BEAKER) (test ueke=219) 139 K/CU MM 150-450 MEAN PLATELET VOLUME (BEAKER) (test frza=801) 9.3 fL 9.4-12.4 NUCLEATED RED BLOOD CELLS (BEAKER) (test 0 /100 WBC 0-0 axes=743) NEUTROPHILS RELATIVE PERCENT (BEAKER) (test 65 % ptak=580) LYMPHOCYTES RELATIVE PERCENT (BEAKER) (test 16 % ydxx=425) MONOCYTES RELATIVE PERCENT (BEAKER) (test 17 % zuoa=710) EOSINOPHILS RELATIVE PERCENT (BEAKER) (test 2 % jknw=000) BASOPHILS RELATIVE PERCENT (BEAKER) (test 1 % plfv=420) NEUTROPHILS ABSOLUTE COUNT (BEAKER) (test 3.72 K/ L 1.78-5.38 ubot=119) LYMPHOCYTES ABSOLUTE COUNT (BEAKER) (test 0.90 K/ L 1.32-3.57 bsvz=338) MONOCYTES ABSOLUTE COUNT (BEAKER) (test 0.98 K/ L 0.30-0.82 kykj=316) EOSINOPHILS ABSOLUTE COUNT (BEAKER) (test 0.10 K/ L 0.04-0.54 gitz=942) BASOPHILS ABSOLUTE COUNT (BEAKER) (test 0.04 K/ L 0.01-0.08 wvva=235) IMMATURE GRANULOCYTES-RELATIVE PERCENT (BEAKER) 1 % 0-1 (test ajmc=2072) [id number] 00:30:00 Test Item Value Reference Range Comments PARTIAL THROMBOPLASTIN TIME (BEAKER) (test 56.7 seconds 22.5-36.0 nhgd=829) BODY FLUID CELL COUNT WITH [id number] 19:28:00 Test Item Value Reference Range Comments APPEARANCE FLUID (BEAKER) (test brxa=386) Cloudy Clear COLOR FLUID (BEAKER) (test jtyp=500) Red Colorless, Straw RBC FLUID (BEAKER) (test afue=021) 07255 /cu mm <=1 ADJUSTED WBC FLUID (BEAKER) (test dkzm=3961) 968 /cu mm <=5 LINING CELLS (BEAKER) (test yllw=0421) 0 /cu mm <=1 NEUTROPHILS FLUID (BEAKER) (test xdmg=2171) 18 % LYMPHS FLUID (BEAKER) (test hrkr=860) 61 % MONO/MACROPHAGE FLUID (BEAKER) (test mgnl=657) 21 % EOSINOPHILS FLUID (BEAKER) (test nysr=234) 0 % BASO FLUID (BEAKER) (test uehr=717) 0 % CONTAINER BODY FLUID (BEAKER) (test uzdk=0079) EDTA Tube ALBUMIN, BODY [id number] 18:40:00 Test Item Value Reference Range Comments ALBUMIN FLUID (BEAKER) (test pmhm=028) 2.1 gm/dL Reference Range: No Normals Assay performance has not been validated for this type of specimen.LACTATE DEHYDROGENASE (LDH), BODY [id number] 18:40:00 Test Item Value Reference Range Comments LACTATE DEHYDROGENASE FLUID (BEAKER) (test viwt=457) 268 U/L Absence of reference range indicates that normals have not been defined.Assay performance has not been validated for this type of specimen.GLUCOSE, BODY [id number] 18:40:00 Test Item Value Reference Range Comments GLUCOSE, BODY FLUID (BEAKER) (test rrtj=6083) 102 mg/dL Absence of reference range indicates that normals have not been defined.Assay performance has not been validated for this type of specimen.LACTATE DEHYDROGENASE (LDH)2018-08-13 18:40:00 Test Item Value Reference Range Comments LACTATE DEHYDROGENASE (BEAKER) (test hiqj=410) 280 U/L 125-220 HEPATIC FUNCTION [id number] 18:40:00 Test Item Value Reference Range Comments TOTAL PROTEIN (BEAKER) (test vazm=401) 8.2 gm/dL 6.0-8.3 ALBUMIN (BEAKER) (test itbi=8576) 3.3 g/dL 3.5-5.0 BILIRUBIN TOTAL (BEAKER) (test spxm=554) 1.0 mg/dL 0.2-1.2 BILIRUBIN DIRECT (BEAKER) (test jmzz=064) 0.6 mg/dL 0.1-0.5 ALKALINE PHOSPHATASE (BEAKER) (test ipol=666) 85 U/L 40-150 AST (SGOT) (BEAKER) (test ngrk=401) 38 U/L 5-34 ALT (SGPT) (BEAKER) (test ohqo=935) 32 U/L 6-55 RAD, CHEST, 1 VIEW, NON [id number] 17:56:00Reason for exam:->post Right thoracentesisShould this be [...] atrial appendage closure. Interstitial edema. Signed: [facility] Verified Date/Time: 08/13/2018 17:56:18 Reading Location: [address] Consult Reading Room U/S, [id number] 16:22 :00Reason for exam:->shortness of breath, recurrent right pleural effusionShould this be performed at the bedside?->NoFINAL REPORT Ultrasound guided right thoracentesis, 08/13/2018. Clinical History: Right pleural effusion. Modality: Ultrasound. Sedation: None. Eddy Current Inspector: Gini. Gas Welder: None. Estimated Blood Loss: 1cc Specimen: 1600 [...] uncomplicated ultrasound guided right thoracentesis. Signed: Moiz Musaeport Verified Date/Time: 08/13/2018 16:22:16 Reading Location: [address] Ultrasound Reading Room [id number] 07:18:00 Test Item Value Reference Range Comments MAGNESIUM (BEAKER) (test werh=480) 2.0 mg/dL 1.6-2.6 BASIC METABOLIC [id number] 07:18:00 Test Item Value Reference Range Comments SODIUM (BEAKER) (test 134 meq/L 136-145 svex=604) POTASSIUM (BEAKER) (test 3.6 meq/L 3.5-5.1 ljpe=735) CHLORIDE (BEAKER) (test 94 meq/L 98-107 fesx=752) CO2 (BEAKER) (test 28 meq/L 22-29 tbgg=576) BLOOD UREA NITROGEN 37 mg/dL 7-21 (BEAKER) (test ijgf=418) CREATININE (BEAKER) (test 5.93 mg/dL 0.57-1.25 oaag=122) GLUCOSE RANDOM (BEAKER) 101 mg/dL 70-105 (test efxc=515) CALCIUM (BEAKER) (test 8.9 mg/dL 8.4-10.2 aole=120) EGFR (BEAKER) (test 12 mL/min/1.73 sq m ESTIMATED GFR IS NOT vpuw=7551) ACCURATE CREATININE CLEARANCE IN PREDICTING GLOMERULAR FILTRATION RATE. ESTIMATED GFR IS NOT APPLICABLE FOR DIALYSIS PATIENTS. RAD, CHEST, 1 VIEW, NON [id number] 06:25:00Reason for exam:->SOBShould this be performed at [...] [place] Verified Date/Time: 2017 06:25:21 Reading Location: [address] Transitional Reading Room [id number] 05:49:00 Test Item Value Reference Range Comments PARTIAL THROMBOPLASTIN TIME (BEAKER) (test 42.0 seconds 22.5-36.0 xftr=634) PROTHROMBIN [id number] 05:48:00 Test Item Value Reference Range Comments PROTIME (BEAKER) (test ewak=760) 22.1 seconds 11.7-14.7 INR (BEAKER) (test pphu=765) 1.9 <=5.9 RECOMMENDED COUMADIN/WARFARIN INR THERAPY RANGESSTANDARD DOSE: 2.0 - 3.0 Includes: PROPHYLAXIS forvenous thrombosis, systemic embolization; TREATMENT for venous thrombosis and/or pulmonary embolus.HIGH RISK: Target INR is 2.5-3.5 for patients with mechanical heart valves.CBC W/PLT COUNT & AUTO [id number] 05:37:00 Test Item Value Reference Range Comments WHITE BLOOD CELL COUNT (BEAKER) (test czwc=622) 6.1 K/ L 3.5-10.5 RED BLOOD CELL COUNT (BEAKER) (test yawz=489) 3.12 M/ L 4.63-6.08 HEMOGLOBIN (BEAKER) (test wcur=290) 10.4 GM/DL 13.7-17.5 HEMATOCRIT (BEAKER) (test xgul=831) 31.4 % 40.1-51.0 MEAN CORPUSCULAR VOLUME (BEAKER) (test oahk=580) 100.6 fL 79.0-92.2 MEAN CORPUSCULAR HEMOGLOBIN (BEAKER) (test 33.3 pg 25.7-32.2 mwhj=186) MEAN CORPUSCULAR HEMOGLOBIN CONC (BEAKER) (test 33.1 GM/DL 32.3-36.5 qeoe=203) RED CELL DISTRIBUTION WIDTH (BEAKER) (test 14.3 % 11.6-14.4 qgby=290) PLATELET COUNT (BEAKER) (test bppe=776) 143 K/CU MM 150-450 MEAN PLATELET VOLUME (BEAKER) (test nxoe=440) 9.3 fL 9.4-12.4 NUCLEATED RED BLOOD CELLS (BEAKER) (test 0 /100 WBC 0-0 wcrm=268) NEUTROPHILS RELATIVE PERCENT (BEAKER) (test 64 % lobn=750) LYMPHOCYTES RELATIVE PERCENT (BEAKER) (test 13 % goxs=795) MONOCYTES RELATIVE PERCENT (BEAKER) (test 21 % olng=756) EOSINOPHILS RELATIVE PERCENT (BEAKER) (test 2 % orev=444) BASOPHILS RELATIVE PERCENT (BEAKER) (test 1 % hyxk=315) NEUTROPHILS ABSOLUTE COUNT (BEAKER) (test 3.85 K/ L 1.78-5.38 actm=108) LYMPHOCYTES ABSOLUTE COUNT (BEAKER) (test 0.77 K/ L 1.32-3.57 uuka=705) MONOCYTES ABSOLUTE COUNT (BEAKER) (test 1.27 K/ L 0.30-0.82 fcqd=391) EOSINOPHILS ABSOLUTE COUNT (BEAKER) (test 0.09 K/ L 0.04-0.54 tnrv=118) BASOPHILS ABSOLUTE COUNT (BEAKER) (test 0.05 K/ L 0.01-0.08 lyfj=800) IMMATURE GRANULOCYTES-RELATIVE PERCENT (BEAKER) 0 % 0-1 (test lrxu=7710) POCT-GLUCOSE [id number] 18:30:00 Test Item Value Reference Range Comments POC-GLUCOSE METER (BEAKER) 80 mg/dL 70-110 TESTED AT [facility] [address] (test augc=8360) [facility] [address] RAD, CHEST, 1 VIEW, NON [id number] 13:46:00Reason for exam:->evaluate pleural effusionShould this be performed at the bedside?->YesFINAL REPORT Comparison: 08/02/2018 TECHNIQUE: Single view of the chest FINDINGS Bilateral interstitial and airspace opacities are stable. Bilateral pleural effusions seen, right greater than left. No gross new lung parenchymal changes. Post surgical changes in the mediastinum. IMPRESSION: No significant interval change. Signed: Kyle Rome MDReport Verified Date/Time: 08/06/2018 13:46:20 Reading Location: [facility] Radiology Reading Room [id number] 09:33:00 Test Item Value Reference Range Comments PARTIAL THROMBOPLASTIN TIME (BEAKER) (test 113.6 seconds 22.5-36.0 rcig=573) [id number] 06:48:00 Test Item Value Reference Range Comments PROTIME (BEAKER) (test xycm=990) 23.2 seconds 11.7-14.7 INR (BEAKER) (test wath=233) 2.1 <=5.9 PARTIAL THROMBOPLASTIN TIME (BEAKER) (test 164.1 seconds 22.5-36.0 bots=338) RECOMMENDED COUMADIN/WARFARIN INR THERAPY RANGESSTANDARD DOSE: 2.0 - 3.0 Includes: PROPHYLAXIS forvenous thrombosis, systemic embolization; TREATMENT for venous thrombosis and/or pulmonary embolus.HIGH RISK: Target INR is 2.5-3.5 for patients with mechanical heart valves.While on warfarin.While on warfarin.BASIC METABOLIC [id number] 06:45:00 Test Item Value Reference Range Comments SODIUM (BEAKER) (test 136 meq/L 136-145 ftvw=037) POTASSIUM (BEAKER) (test 3.9 meq/L 3.5-5.1 Specimen slightly kwjl=848) hemolyzed CHLORIDE (BEAKER) (test 98 meq/L 98-107 qxmo=653) CO2 (BEAKER) (test 29 meq/L 22-29 ivnl=697) BLOOD UREA NITROGEN 27 mg/dL 7-21 (BEAKER) (test ruzh=174) CREATININE (BEAKER) (test 5.78 mg/dL 0.57-1.25 Specimen slightly otvv=215) hemolyzed GLUCOSE RANDOM (BEAKER) 92 mg/dL 70-105 (test dbly=436) CALCIUM (BEAKER) (test 9.2 mg/dL 8.4-10.2 atwu=409) EGFR (BEAKER) (test 12 mL/min/1.73 sq m ESTIMATED GFR IS NOT uxbx=7179) ACCURATE CREATININE CLEARANCE IN PREDICTING GLOMERULAR FILTRATION RATE. ESTIMATED GFR IS NOT APPLICABLE FOR DIALYSIS PATIENTS. PROTHROMBIN [id number] 06:43:00 Test Item Value Reference Range Comments PROTIME (BEAKER) (test ygyg=761) 23.2 seconds 11.7-14.7 INR (BEAKER) (test erbw=077) 2.1 <=5.9 RECOMMENDED COUMADIN/WARFARIN INR THERAPY RANGESSTANDARD DOSE: 2.0 - 3.0 Includes: PROPHYLAXIS forvenous thrombosis, systemic embolization; TREATMENT for venous thrombosis and/or pulmonary embolus.HIGH RISK: Target INR is 2.5-3.5 for patients with mechanical heart valves.CBC W/PLT COUNT & AUTO [id number] 06:34:00 Test Item Value Reference Range Comments WHITE BLOOD CELL COUNT (BEAKER) (test qtgo=707) 6.0 K/ L 3.5-10.5 RED BLOOD CELL COUNT (BEAKER) (test pawx=206) 3.40 M/ L 4.63-6.08 HEMOGLOBIN (BEAKER) (test yoyi=302) 11.2 GM/DL 13.7-17.5 HEMATOCRIT (BEAKER) (test fdoi=634) 34.2 % 40.1-51.0 MEAN CORPUSCULAR VOLUME (BEAKER) (test takf=032) 100.6 fL 79.0-92.2 MEAN CORPUSCULAR HEMOGLOBIN (BEAKER) (test 32.9 pg 25.7-32.2 kxef=947) MEAN CORPUSCULAR HEMOGLOBIN CONC (BEAKER) (test 32.7 GM/DL 32.3-36.5 ddyl=161) RED CELL DISTRIBUTION WIDTH (BEAKER) (test 14.9 % 11.6-14.4 bvlm=715) PLATELET COUNT (BEAKER) (test dcfc=170) 117 K/CU MM 150-450 MEAN PLATELET VOLUME (BEAKER) (test uluk=032) 9.5 fL 9.4-12.4 NUCLEATED RED BLOOD CELLS (BEAKER) (test 0 /100 WBC 0-0 uyrx=951) NEUTROPHILS RELATIVE PERCENT (BEAKER) (test 65 % kspd=706) LYMPHOCYTES RELATIVE PERCENT (BEAKER) (test 17 % hneh=798) MONOCYTES RELATIVE PERCENT (BEAKER) (test 16 % ovtc=207) EOSINOPHILS RELATIVE PERCENT (BEAKER) (test 2 % dqof=555) BASOPHILS RELATIVE PERCENT (BEAKER) (test 1 % reim=304) NEUTROPHILS ABSOLUTE COUNT (BEAKER) (test 3.90 K/ L 1.78-5.38 stmd=503) LYMPHOCYTES ABSOLUTE COUNT (BEAKER) (test 1.00 K/ L 1.32-3.57 uotw=585) MONOCYTES ABSOLUTE COUNT (BEAKER) (test 0.94 K/ L 0.30-0.82 qocu=447) EOSINOPHILS ABSOLUTE COUNT (BEAKER) (test 0.13 K/ L 0.04-0.54 heiv=088) BASOPHILS ABSOLUTE COUNT (BEAKER) (test 0.04 K/ L 0.01-0.08 qiug=957) IMMATURE GRANULOCYTES-RELATIVE PERCENT (BEAKER) 0 % 0-1 (test ndyj=9374) CBC (HEMOGRAM ONLY)2018-08-06 06:23:00 Test Item Value Reference Range Comments WHITE BLOOD CELL COUNT (BEAKER) (test ydsq=033) 6.0 K/ L 3.5-10.5 RED BLOOD CELL COUNT (BEAKER) (test ccne=392) 3.40 M/ L 4.63-6.08 HEMOGLOBIN (BEAKER) (test vvfn=044) 11.2 GM/DL 13.7-17.5 HEMATOCRIT (BEAKER) (test mapq=347) 34.2 % 40.1-51.0 MEAN CORPUSCULAR VOLUME (BEAKER) (test rsgq=313) 100.6 fL 79.0-92.2 MEAN CORPUSCULAR HEMOGLOBIN (BEAKER) (test 32.9 pg 25.7-32.2 ivoo=898) MEAN CORPUSCULAR HEMOGLOBIN CONC (BEAKER) (test 32.7 GM/DL 32.3-36.5 whsm=707) RED CELL DISTRIBUTION WIDTH (BEAKER) (test 14.9 % 11.6-14.4 brpf=887) PLATELET COUNT (BEAKER) (test kmtq=751) 117 K/CU MM 150-450 MEAN PLATELET VOLUME (BEAKER) (test sgqi=832) 9.5 fL 9.4-12.4 NUCLEATED RED BLOOD CELLS (BEAKER) (test 0 /100 WBC 0-0 eozg=780) [id number] 20:40:00 Test Item Value Reference Range Comments PARTIAL THROMBOPLASTIN TIME (BEAKER) (test 81.7 seconds 22.5-36.0 rrke=140) [id number] 14:05:00 Test Item Value Reference Range Comments PARTIAL THROMBOPLASTIN TIME (BEAKER) (test 91.5 seconds 22.5-36.0 nwyo=397) BASIC METABOLIC [id number] 07:02:00 Test Item Value Reference Range Comments SODIUM (BEAKER) (test 130 meq/L 136-145 dvdc=143) POTASSIUM (BEAKER) (test 4.3 meq/L 3.5-5.1 ksug=944) CHLORIDE (BEAKER) (test 97 meq/L 98-107 week=453) CO2 (BEAKER) (test 19 meq/L 22-29 oedc=105) BLOOD UREA NITROGEN 52 mg/dL 7-21 (BEAKER) (test sgai=824) CREATININE (BEAKER) (test 8.62 mg/dL 0.57-1.25 puxq=798) GLUCOSE RANDOM (BEAKER) 75 mg/dL 70-105 (test uvwg=738) CALCIUM (BEAKER) (test 9.3 mg/dL 8.4-10.2 llvs=241) EGFR (BEAKER) (test 8 mL/min/1.73 sq m ESTIMATED GFR IS NOT sqsk=4790) ACCURATE CREATININE CLEARANCE IN PREDICTING GLOMERULAR FILTRATION RATE. ESTIMATED GFR IS NOT APPLICABLE FOR DIALYSIS PATIENTS. PT/[id number] 06:47:00 Test Item Value Reference Range Comments PROTIME (BEAKER) (test ytqk=386) 19.8 seconds 11.7-14.7 INR (BEAKER) (test apop=916) 1.7 <=5.9 PARTIAL THROMBOPLASTIN TIME (BEAKER) (test 44.1 seconds 22.5-36.0 tofd=321) RECOMMENDED COUMADIN/WARFARIN INR THERAPY RANGESSTANDARD DOSE: 2.0 - 3.0 Includes: PROPHYLAXIS forvenous thrombosis, systemic embolization; TREATMENT for venous thrombosis and/or pulmonary embolus.HIGH RISK: Target INR is 2.5-3.5 for patients with mechanical heart valves.Ok to add onOk to add onPROTHROMBIN TIME/[id number] 06:46:00 Test Item Value Reference Range Comments PROTIME (BEAKER) (test vsiu=905) 19.8 seconds 11.7-14.7 INR (BEAKER) (test dngk=581) 1.7 <=5.9 RECOMMENDED COUMADIN/WARFARIN INR THERAPY RANGESSTANDARD DOSE: 2.0 - 3.0 Includes: PROPHYLAXIS forvenous thrombosis, systemic embolization; TREATMENT for venous thrombosis and/or pulmonary embolus.HIGH RISK: Target INR is 2.5-3.5 for patients with mechanical heart valves.CBC W/PLT COUNT & AUTO [id number] 06:38:00 Test Item Value Reference Range Comments WHITE BLOOD CELL COUNT (BEAKER) (test egbq=270) 6.4 K/ L 3.5-10.5 RED BLOOD CELL COUNT (BEAKER) (test jncd=256) 3.40 M/ L 4.63-6.08 HEMOGLOBIN (BEAKER) (test edru=811) 11.2 GM/DL 13.7-17.5 HEMATOCRIT (BEAKER) (test qqjd=770) 33.8 % 40.1-51.0 MEAN CORPUSCULAR VOLUME (BEAKER) (test lfwt=235) 99.4 fL 79.0-92.2 MEAN CORPUSCULAR HEMOGLOBIN (BEAKER) (test 32.9 pg 25.7-32.2 bgam=816) MEAN CORPUSCULAR HEMOGLOBIN CONC (BEAKER) (test 33.1 GM/DL 32.3-36.5 alcj=501) RED CELL DISTRIBUTION WIDTH (BEAKER) (test 14.6 % 11.6-14.4 lang=443) PLATELET COUNT (BEAKER) (test vavf=591) 122 K/CU MM 150-450 MEAN PLATELET VOLUME (BEAKER) (test qclg=970) 10.1 fL 9.4-12.4 NUCLEATED RED BLOOD CELLS (BEAKER) (test 0 /100 WBC 0-0 orcl=256) NEUTROPHILS RELATIVE PERCENT (BEAKER) (test 62 % cbcj=253) LYMPHOCYTES RELATIVE PERCENT (BEAKER) (test 20 % qpie=864) MONOCYTES RELATIVE PERCENT (BEAKER) (test 15 % ozqj=777) EOSINOPHILS RELATIVE PERCENT (BEAKER) (test 3 % khex=930) BASOPHILS RELATIVE PERCENT (BEAKER) (test 1 % rbdf=762) NEUTROPHILS ABSOLUTE COUNT (BEAKER) (test 3.96 K/ L 1.78-5.38 jqvv=006) LYMPHOCYTES ABSOLUTE COUNT (BEAKER) (test 1.25 K/ L 1.32-3.57 bieh=772) MONOCYTES ABSOLUTE COUNT (BEAKER) (test 0.93 K/ L 0.30-0.82 uxgl=796) EOSINOPHILS ABSOLUTE COUNT (BEAKER) (test 0.17 K/ L 0.04-0.54 qemd=154) BASOPHILS ABSOLUTE COUNT (BEAKER) (test 0.04 K/ L 0.01-0.08 ezxm=431) IMMATURE GRANULOCYTES-RELATIVE PERCENT (BEAKER) 0 % 0-1 (test tlgo=2566) [id number] 16:22:00 Test Item Value Reference Range Comments PARTIAL THROMBOPLASTIN TIME (BEAKER) (test 76.1 seconds 22.5-36.0 avhb=467) BODY FLUID CULTURE + GRAM [id number] 09:10:00 Test Item Value Reference Range Comments CULTURE (BEAKER) (test lsjy=4185) No growth GRAM STAIN RESULT (BEAKER) (test <1+ WBCs jsuy=4835) GRAM STAIN RESULT (BEAKER) (test No organisms seen obqw=79261) CBC W/PLT COUNT & AUTO [id number] 07:23:00 Test Item Value Reference Range Comments WHITE BLOOD CELL COUNT (BEAKER) (test utkx=455) 7.1 K/ L 3.5-10.5 RED BLOOD CELL COUNT (BEAKER) (test swvy=963) 3.54 M/ L 4.63-6.08 HEMOGLOBIN (BEAKER) (test uwwm=860) 11.6 GM/DL 13.7-17.5 HEMATOCRIT (BEAKER) (test ubpb=927) 35.6 % 40.1-51.0 MEAN CORPUSCULAR VOLUME (BEAKER) (test ztuh=211) 100.6 fL 79.0-92.2 MEAN CORPUSCULAR HEMOGLOBIN (BEAKER) (test 32.8 pg 25.7-32.2 zpgm=898) MEAN CORPUSCULAR HEMOGLOBIN CONC (BEAKER) (test 32.6 GM/DL 32.3-36.5 azdo=745) RED CELL DISTRIBUTION WIDTH (BEAKER) (test 14.7 % 11.6-14.4 nzkp=524) PLATELET COUNT (BEAKER) (test whqf=873) 115 K/CU MM 150-450 MEAN PLATELET VOLUME (BEAKER) (test sxdt=251) 9.8 fL 9.4-12.4 NUCLEATED RED BLOOD CELLS (BEAKER) (test 0 /100 WBC 0-0 bpmq=720) NEUTROPHILS RELATIVE PERCENT (BEAKER) (test 66 % narw=516) LYMPHOCYTES RELATIVE PERCENT (BEAKER) (test 17 % dmwl=090) MONOCYTES RELATIVE PERCENT (BEAKER) (test 14 % wpxk=461) EOSINOPHILS RELATIVE PERCENT (BEAKER) (test 2 % msmd=618) BASOPHILS RELATIVE PERCENT (BEAKER) (test 0 % upcc=576) NEUTROPHILS ABSOLUTE COUNT (BEAKER) (test 4.67 K/ L 1.78-5.38 nmwx=724) LYMPHOCYTES ABSOLUTE COUNT (BEAKER) (test 1.23 K/ L 1.32-3.57 txth=436) MONOCYTES ABSOLUTE COUNT (BEAKER) (test 1.02 K/ L 0.30-0.82 rbmd=208) EOSINOPHILS ABSOLUTE COUNT (BEAKER) (test 0.14 K/ L 0.04-0.54 hoyr=807) BASOPHILS ABSOLUTE COUNT (BEAKER) (test 0.03 K/ L 0.01-0.08 aher=407) IMMATURE GRANULOCYTES-RELATIVE PERCENT (BEAKER) 0 % 0-1 (test lbph=6202) CBC (HEMOGRAM ONLY)2018-08-04 07:23:00 Test Item Value Reference Range Comments WHITE BLOOD CELL COUNT (BEAKER) (test ivoc=194) 7.1 K/ L 3.5-10.5 RED BLOOD CELL COUNT (BEAKER) (test qrax=360) 3.54 M/ L 4.63-6.08 HEMOGLOBIN (BEAKER) (test kvme=534) 11.6 GM/DL 13.7-17.5 HEMATOCRIT (BEAKER) (test uhtx=289) 35.6 % 40.1-51.0 MEAN CORPUSCULAR VOLUME (BEAKER) (test bfld=921) 100.6 fL 79.0-92.2 MEAN CORPUSCULAR HEMOGLOBIN (BEAKER) (test 32.8 pg 25.7-32.2 mzjx=508) MEAN CORPUSCULAR HEMOGLOBIN CONC (BEAKER) (test 32.6 GM/DL 32.3-36.5 fglf=625) RED CELL DISTRIBUTION WIDTH (BEAKER) (test 14.7 % 11.6-14.4 avzf=511) PLATELET COUNT (BEAKER) (test gujm=601) 115 K/CU MM 150-450 MEAN PLATELET VOLUME (BEAKER) (test sivx=798) 9.8 fL 9.4-12.4 NUCLEATED RED BLOOD CELLS (BEAKER) (test 0 /100 WBC 0-0 tvgm=659) BASIC METABOLIC [id number] 07:05:00 Test Item Value Reference Range Comments SODIUM (BEAKER) (test 134 meq/L 136-145 dbpt=847) POTASSIUM (BEAKER) (test 4.0 meq/L 3.5-5.1 lcpr=086) CHLORIDE (BEAKER) (test 100 meq/L 98-107 rdsl=749) CO2 (BEAKER) (test 24 meq/L 22-29 qkvg=713) BLOOD UREA NITROGEN 38 mg/dL 7-21 (BEAKER) (test nbau=979) CREATININE (BEAKER) (test 7.15 mg/dL 0.57-1.25 uhlf=255) GLUCOSE RANDOM (BEAKER) 92 mg/dL 70-105 (test llnm=085) CALCIUM (BEAKER) (test 9.5 mg/dL 8.4-10.2 rews=662) EGFR (BEAKER) (test 10 mL/min/1.73 sq m ESTIMATED GFR IS NOT krru=5119) ACCURATE CREATININE CLEARANCE IN PREDICTING GLOMERULAR FILTRATION RATE. ESTIMATED GFR IS NOT APPLICABLE FOR DIALYSIS PATIENTS. [id number] 06:53:00 Test Item Value Reference Range Comments PROTIME (BEAKER) (test nzuu=721) 17.5 seconds 11.7-14.7 INR (BEAKER) (test wqjn=364) 1.4 <=5.9 PARTIAL THROMBOPLASTIN TIME (BEAKER) (test 70.3 seconds 22.5-36.0 jrva=295) RECOMMENDED COUMADIN/WARFARIN INR THERAPY RANGESSTANDARD DOSE: 2.0 - 3.0 Includes: PROPHYLAXIS forvenous thrombosis, systemic embolization; TREATMENT for venous thrombosis and/or pulmonary embolus.HIGH RISK: Target INR is 2.5-3.5 for patients with mechanical heart valves.Ok to add onOk to add [id number] 06:53:00 Test Item Value Reference Range Comments PARTIAL THROMBOPLASTIN TIME (BEAKER) (test 70.3 seconds 22.5-36.0 mjle=215) PROTHROMBIN [id number] 06:52:00 Test Item Value Reference Range Comments PROTIME (BEAKER) (test fbju=837) 17.5 seconds 11.7-14.7 INR (BEAKER) (test crcw=538) 1.4 <=5.9 RECOMMENDED COUMADIN/WARFARIN INR THERAPY RANGESSTANDARD DOSE: 2.0 - 3.0 Includes: PROPHYLAXIS forvenous thrombosis, systemic embolization; TREATMENT for venous thrombosis and/or pulmonary embolus.HIGH RISK: Target INR is 2.5-3.5 for patients with mechanical heart valves.PROTHROMBIN [id number] 06:51: 00 Test Item Value Reference Range Comments PROTIME (BEAKER) (test eioz=492) 17.7 seconds 11.7-14.7 INR (BEAKER) (test cqtj=543) 1.5 <=5.9 RECOMMENDED COUMADIN/WARFARIN INR THERAPY RANGESSTANDARD DOSE: 2.0 - 3.0 Includes: PROPHYLAXIS forvenous thrombosis, systemic embolization; TREATMENT for venous thrombosis and/or pulmonary embolus.HIGH RISK: Target INR is 2.5-3.5 for patients with mechanical heart valves.While on warfarin.[id number] 22:47 :00 Test Item Value Reference Range Comments PARTIAL THROMBOPLASTIN TIME (BEAKER) (test 73.6 seconds 22.5-36.0 dwar=096) [id number] 13:08:00 Test Item Value Reference Range Comments PARTIAL THROMBOPLASTIN TIME (BEAKER) (test 49.2 seconds 22.5-36.0 dmxv=562) BASIC METABOLIC [id number] 06:56:00 Test Item Value Reference Range Comments SODIUM (BEAKER) (test 135 meq/L 136-145 spbq=519) POTASSIUM (BEAKER) (test 4.2 meq/L 3.5-5.1 gzsk=067) CHLORIDE (BEAKER) (test 101 meq/L 98-107 kdfr=600) CO2 (BEAKER) (test 26 meq/L 22-29 gyim=369) BLOOD UREA NITROGEN 21 mg/dL 7-21 (BEAKER) (test kewb=409) CREATININE (BEAKER) (test 5.04 mg/dL 0.57-1.25 mogr=144) GLUCOSE RANDOM (BEAKER) 92 mg/dL 70-105 (test dnam=179) CALCIUM (BEAKER) (test 9.5 mg/dL 8.4-10.2 iqon=852) EGFR (BEAKER) (test 14 mL/min/1.73 sq m ESTIMATED GFR IS NOT twnv=9529) ACCURATE CREATININE CLEARANCE IN PREDICTING GLOMERULAR FILTRATION RATE. ESTIMATED GFR IS NOT APPLICABLE FOR DIALYSIS PATIENTS. [id number] 06:56:00 Test Item Value Reference Range Comments PARTIAL THROMBOPLASTIN TIME (BEAKER) (test 67.5 seconds 22.5-36.0 aouz=048) [id number] 06:45:00 Test Item Value Reference Range Comments PROTIME (BEAKER) (test bgrl=339) 18.6 seconds 11.7-14.7 INR (BEAKER) (test wltr=250) 1.6 <=5.9 PARTIAL THROMBOPLASTIN TIME (BEAKER) (test 62.0 seconds 22.5-36.0 sxnh=951) RECOMMENDED COUMADIN/WARFARIN INR THERAPY RANGESSTANDARD DOSE: 2.0 - 3.0 Includes: PROPHYLAXIS forvenous thrombosis, systemic embolization; TREATMENT for venous thrombosis and/or pulmonary embolus.HIGH RISK: Target INR is 2.5-3.5 for patients with mechanical heart valves.Ok to add onOk to add onPROTHROMBIN [id number] 06:44:00 Test Item Value Reference Range Comments PROTIME (BEAKER) (test giae=661) 18.6 seconds 11.7-14.7 INR (BEAKER) (test tzvz=759) 1.6 <=5.9 RECOMMENDED COUMADIN/WARFARIN INR THERAPY RANGESSTANDARD DOSE: 2.0 - 3.0 Includes: PROPHYLAXIS forvenous thrombosis, systemic embolization; TREATMENT for venous thrombosis and/or pulmonary embolus.HIGH RISK: Target INR is 2.5-3.5 for patients with mechanical heart valves.CBC W/PLT COUNT & AUTO [id number] 06:28:00 Test Item Value Reference Range Comments WHITE BLOOD CELL COUNT (BEAKER) (test oqtw=984) 6.1 K/ L 3.5-10.5 RED BLOOD CELL COUNT (BEAKER) (test fnoq=016) 3.44 M/ L 4.63-6.08 HEMOGLOBIN (BEAKER) (test domi=977) 11.4 GM/DL 13.7-17.5 HEMATOCRIT (BEAKER) (test jrlv=774) 34.9 % 40.1-51.0 MEAN CORPUSCULAR VOLUME (BEAKER) (test kcmw=400) 101.5 fL 79.0-92.2 MEAN CORPUSCULAR HEMOGLOBIN (BEAKER) (test 33.1 pg 25.7-32.2 rijk=546) MEAN CORPUSCULAR HEMOGLOBIN CONC (BEAKER) (test 32.7 GM/DL 32.3-36.5 pcly=070) RED CELL DISTRIBUTION WIDTH (BEAKER) (test 14.8 % 11.6-14.4 qump=612) PLATELET COUNT (BEAKER) (test elth=014) 98 K/CU MM 150-450 MEAN PLATELET VOLUME (BEAKER) (test tcmw=703) 9.6 fL 9.4-12.4 NUCLEATED RED BLOOD CELLS (BEAKER) (test 0 /100 WBC 0-0 butg=775) NEUTROPHILS RELATIVE PERCENT (BEAKER) (test 66 % ijda=575) LYMPHOCYTES RELATIVE PERCENT (BEAKER) (test 17 % uypr=916) MONOCYTES RELATIVE PERCENT (BEAKER) (test 15 % adzu=692) EOSINOPHILS RELATIVE PERCENT (BEAKER) (test 2 % kfgq=056) BASOPHILS RELATIVE PERCENT (BEAKER) (test 1 % mxpo=167) NEUTROPHILS ABSOLUTE COUNT (BEAKER) (test 3.99 K/ L 1.78-5.38 yowc=160) LYMPHOCYTES ABSOLUTE COUNT (BEAKER) (test 1.02 K/ L 1.32-3.57 hdkj=266) MONOCYTES ABSOLUTE COUNT (BEAKER) (test ucxa=400) 0.89 K/ L 0.30-0.82 EOSINOPHILS ABSOLUTE COUNT (BEAKER) (test 0.12 K/ L 0.04-0.54 orox=568) BASOPHILS ABSOLUTE COUNT (BEAKER) (test pjmk=348) 0.03 K/ L 0.01-0.08 IMMATURE GRANULOCYTES-RELATIVE PERCENT (BEAKER) 0 % 0-1 (test lhfd=9140) CBC (HEMOGRAM ONLY)2018-08-03 06:28:00 Test Item Value Reference Range Comments WHITE BLOOD CELL COUNT (BEAKER) (test fgfj=401) 6.1 K/ L 3.5-10.5 RED BLOOD CELL COUNT (BEAKER) (test gett=172) 3.44 M/ L 4.63-6.08 HEMOGLOBIN (BEAKER) (test uadx=526) 11.4 GM/DL 13.7-17.5 HEMATOCRIT (BEAKER) (test jsac=228) 34.9 % 40.1-51.0 MEAN CORPUSCULAR VOLUME (BEAKER) (test oaic=675) 101.5 fL 79.0-92.2 MEAN CORPUSCULAR HEMOGLOBIN (BEAKER) (test 33.1 pg 25.7-32.2 hfej=004) MEAN CORPUSCULAR HEMOGLOBIN CONC (BEAKER) (test 32.7 GM/DL 32.3-36.5 vusz=114) RED CELL DISTRIBUTION WIDTH (BEAKER) (test 14.8 % 11.6-14.4 gqfh=817) PLATELET COUNT (BEAKER) (test xcmq=953) 98 K/CU MM 150-450 MEAN PLATELET VOLUME (BEAKER) (test osbu=631) 9.6 fL 9.4-12.4 NUCLEATED RED BLOOD CELLS (BEAKER) (test 0 /100 WBC 0-0 nkpk=830) [id number] 02:18:00 Test Item Value Reference Range Comments PARTIAL THROMBOPLASTIN TIME (BEAKER) (test 67.1 seconds 22.5-36.0 pghh=036) [id number] 18:56:00 Test Item Value Reference Range Comments PARTIAL THROMBOPLASTIN TIME (BEAKER) (test 72.5 seconds 22.5-36.0 yimz=574) POCT-GLUCOSE [id number] 13:08:00 Test Item Value Reference Range Comments POC-GLUCOSE METER (BEAKER) 121 mg/dL 70-110 TESTED AT [facility] [address] (test epuv=9194) [place] [address] [id number] 12:07:00 Test Item Value Reference Range Comments PARTIAL THROMBOPLASTIN TIME (BEAKER) (test 50.7 seconds 22.5-36.0 iuwy=430) Ok to add onPROTHROMBIN [id number] 12:05:00 Test Item Value Reference Range Comments PROTIME (BEAKER) (test sszs=930) 16.7 seconds 11.7-14.7 INR (BEAKER) (test ybbc=094) 1.4 <=5.9 RECOMMENDED COUMADIN/WARFARIN INR THERAPY RANGESSTANDARD DOSE: 2.0 - 3.0 Includes: PROPHYLAXIS forvenous thrombosis, systemic embolization; TREATMENT for venous thrombosis and/or pulmonary embolus.HIGH RISK: Target INR is 2.5-3.5 for patients with mechanical heart valves.Ok to add onCBC (HEMOGRAM ONLY)2018-08 11:55:00 Test Item Value Reference Range Comments WHITE BLOOD CELL COUNT (BEAKER) (test ysgw=148) 5.4 K/ L 3.5-10.5 RED BLOOD CELL COUNT (BEAKER) (test pomn=705) 3.35 M/ L 4.63-6.08 HEMOGLOBIN (BEAKER) (test gpsb=096) 11.1 GM/DL 13.7-17.5 HEMATOCRIT (BEAKER) (test fuuq=537) 34.1 % 40.1-51.0 MEAN CORPUSCULAR VOLUME (BEAKER) (test hgvk=844) 101.8 fL 79.0-92.2 MEAN CORPUSCULAR HEMOGLOBIN (BEAKER) (test 33.1 pg 25.7-32.2 mwmn=841) MEAN CORPUSCULAR HEMOGLOBIN CONC (BEAKER) (test 32.6 GM/DL 32.3-36.5 jzwi=654) RED CELL DISTRIBUTION WIDTH (BEAKER) (test 14.8 % 11.6-14.4 cktc=411) PLATELET COUNT (BEAKER) (test rzeu=965) 115 K/CU MM 150-450 MEAN PLATELET VOLUME (BEAKER) (test tukn=064) 9.3 fL 9.4-12.4 NUCLEATED RED BLOOD CELLS (BEAKER) (test 0 /100 WBC 0-0 wvhj=783) RAD, CHEST, 1 VIEW, NON [id number] 11:24:00Reason for exam:->pleural effusionShould this be performed at the bedside?->YesFINAL REPORT AP chest HISTORY: Pleural effusion COMPARISON: 08/01/2018 IMPRESSION:Intact skeleton. Cardiomegaly. Moderate interstitial edema. Moderate right and small left effusions. No pneumothorax. Signed: Mandy Chairez MDReport Verified Date/Time: 08/02/2018 11:24:33 Reading Location: [facility] C013X Ortho Consult Reading Room BASIC METABOLIC [id number] 02:55:00 Test Item Value Reference Range Comments SODIUM (BEAKER) (test 134 meq/L 136-145 qhck=672) POTASSIUM (BEAKER) (test 4.5 meq/L 3.5-5.1 pvnu=521) CHLORIDE (BEAKER) (test 99 meq/L 98-107 ausg=453) CO2 (BEAKER) (test 23 meq/L 22-29 olya=218) BLOOD UREA NITROGEN 38 mg/dL 7-21 (BEAKER) (test bhmh=893) CREATININE (BEAKER) (test 6.61 mg/dL 0.57-1.25 egml=818) GLUCOSE RANDOM (BEAKER) 86 mg/dL 70-105 (test tsfq=339) CALCIUM (BEAKER) (test 9.2 mg/dL 8.4-10.2 kney=241) EGFR (BEAKER) (test 10 mL/min/1.73 sq m ESTIMATED GFR IS NOT rjsc=5528) ACCURATE CREATININE CLEARANCE IN PREDICTING GLOMERULAR FILTRATION RATE. ESTIMATED GFR IS NOT APPLICABLE FOR DIALYSIS PATIENTS. [id number] 02:39:00 Test Item Value Reference Range Comments PARTIAL THROMBOPLASTIN TIME (BEAKER) (test 51.6 seconds 22.5-36.0 uade=087) CBC W/PLT COUNT & AUTO [id number] 02:30:00 Test Item Value Reference Range Comments WHITE BLOOD CELL COUNT (BEAKER) (test btdl=993) 5.6 K/ L 3.5-10.5 RED BLOOD CELL COUNT (BEAKER) (test nrot=913) 3.49 M/ L 4.63-6.08 HEMOGLOBIN (BEAKER) (test pvte=886) 11.5 GM/DL 13.7-17.5 HEMATOCRIT (BEAKER) (test otws=127) 35.1 % 40.1-51.0 MEAN CORPUSCULAR VOLUME (BEAKER) (test iogy=645) 100.6 fL 79.0-92.2 MEAN CORPUSCULAR HEMOGLOBIN (BEAKER) (test 33.0 pg 25.7-32.2 fgpj=934) MEAN CORPUSCULAR HEMOGLOBIN CONC (BEAKER) (test 32.8 GM/DL 32.3-36.5 aakw=099) RED CELL DISTRIBUTION WIDTH (BEAKER) (test 14.9 % 11.6-14.4 hkgm=412) PLATELET COUNT (BEAKER) (test wkls=728) 117 K/CU MM 150-450 MEAN PLATELET VOLUME (BEAKER) (test xnlb=429) 9.8 fL 9.4-12.4 NUCLEATED RED BLOOD CELLS (BEAKER) (test 0 /100 WBC 0-0 pitj=068) NEUTROPHILS RELATIVE PERCENT (BEAKER) (test 64 % ogmr=947) LYMPHOCYTES RELATIVE PERCENT (BEAKER) (test 18 % cxyd=917) MONOCYTES RELATIVE PERCENT (BEAKER) (test 15 % tpki=487) EOSINOPHILS RELATIVE PERCENT (BEAKER) (test 2 % dtiq=796) BASOPHILS RELATIVE PERCENT (BEAKER) (test 1 % xshi=256) NEUTROPHILS ABSOLUTE COUNT (BEAKER) (test 3.59 K/ L 1.78-5.38 wlzg=274) LYMPHOCYTES ABSOLUTE COUNT (BEAKER) (test 1.02 K/ L 1.32-3.57 fqqp=452) MONOCYTES ABSOLUTE COUNT (BEAKER) (test 0.84 K/ L 0.30-0.82 xvbk=102) EOSINOPHILS ABSOLUTE COUNT (BEAKER) (test 0.13 K/ L 0.04-0.54 cexr=998) BASOPHILS ABSOLUTE COUNT (BEAKER) (test 0.04 K/ L 0.01-0.08 ejsj=707) IMMATURE GRANULOCYTES-RELATIVE PERCENT (BEAKER) 0 % 0-1 (test jpfw=5877) BODY FLUID CELL COUNT WITH [id number] 21:13:00 Test Item Value Reference Range Comments APPEARANCE FLUID (BEAKER) (test xdoz=604) Bloody Clear COLOR FLUID (BEAKER) (test oyvy=520) Sunil Colorless, Straw RBC FLUID (BEAKER) (test frhq=306) 22073 /cu mm <=1 ADJUSTED WBC FLUID (BEAKER) (test mcuz=6242) 462 /cu mm <=5 LINING CELLS (BEAKER) (test nsrn=7102) 0 /cu mm <=1 NEUTROPHILS FLUID (BEAKER) (test kbal=9965) 1 % LYMPHS FLUID (BEAKER) (test hbdv=846) 32 % MONO/MACROPHAGE FLUID (BEAKER) (test zeoi=146) 67 % EOSINOPHILS FLUID (BEAKER) (test nykw=522) 0 % BASO FLUID (BEAKER) (test pytj=868) 0 % CONTAINER BODY FLUID (BEAKER) (test xnti=2717) EDTA Tube ALBUMIN, BODY [id number] 20:00:00 Test Item Value Reference Range Comments ALBUMIN FLUID (BEAKER) (test fyxx=638) 2.1 gm/dL Reference Range: No Normals Assay performance has not been validated for this type of specimen.LACTATE DEHYDROGENASE (LDH), BODY [id number] 20:00:00 Test Item Value Reference Range Comments LACTATE DEHYDROGENASE FLUID (BEAKER) (test bjaq=580) 216 U/L Absence of reference range indicates that normals have not been defined.Assay performance has not been validated for this type of specimen.PROTEIN, BODY [id number] 20:00:00 Test Item Value Reference Range Comments PROTEIN FLUID (BEAKER) (test lepv=811) 4.6 g/dL Absence of reference range indicates that normals have not been defined.Assay performance has not been validated for this type of specimen.GLUCOSE, BODY [id number] 20:00:00 Test Item Value Reference Range Comments GLUCOSE, BODY FLUID (BEAKER) (test boff=6955) 103 mg/dL Absence of reference range indicates that normals have not been defined.Assay performance has not been validated for this type of specimen.RAD, CHEST, PA OR AP, 1 [id number] 17:08:00Ultrasound Room 1Reason for exam:->s/p Right sided [...] MDReport Verified Date/Time: 08/01/2018 17:08:13 Reading Location: [facility] Radiology Reading Room U/S, [id number] 17:03:00Laterality?->RightReason for exam:->large pleural effusionFINAL REPORT HISTORY: Right pleural effusion Following informed written consent, the patient's right posterior chest wall was prepped and draped in the usual sterile manner. 2% lidocaine was given locally for anesthesia. No conscious sedation was administered. Vital signs were monitored and remained stable. Using ultrasound guidance and a 5 [place] angiocatheter, access was gained to the right [...] MDRjerryort Verified Date/Time: 08/01/2018 17:03:15 Reading Location: [address] Ultrasound Reading Room RAD, CHEST, 1 VIEW, NON [id number] 12:40: 00Reason for exam:->pleural effusion; shortness of [...] MDReport Verified Date/Time: 08/01/2018 12:40:42 Reading Location: [facility] Radiology Reading Room [id number] 11:33:00 Test Item Value Reference Range Comments PARTIAL THROMBOPLASTIN TIME (BEAKER) (test 118.1 seconds 22.5-36.0 lyfo=033) BASIC METABOLIC [id number] 02:07:00 Test Item Value Reference Range Comments SODIUM (BEAKER) (test 137 meq/L 136-145 dvje=648) POTASSIUM (BEAKER) (test 4.4 meq/L 3.5-5.1 Specimen slightly dvee=387) hemolyzed CHLORIDE (BEAKER) (test 100 meq/L 98-107 jkai=708) CO2 (BEAKER) (test 27 meq/L 22-29 oyln=972) BLOOD UREA NITROGEN 26 mg/dL 7-21 (BEAKER) (test mryc=987) CREATININE (BEAKER) (test 4.73 mg/dL 0.57-1.25 Specimen slightly idwv=333) hemolyzed GLUCOSE RANDOM (BEAKER) 81 mg/dL 70-105 (test awrx=079) CALCIUM (BEAKER) (test 8.9 mg/dL 8.4-10.2 xsri=987) EGFR (BEAKER) (test 15 mL/min/1.73 sq m ESTIMATED GFR IS NOT ncov=0355) ACCURATE CREATININE CLEARANCE IN PREDICTING GLOMERULAR FILTRATION RATE. ESTIMATED GFR IS NOT APPLICABLE FOR DIALYSIS PATIENTS. PT/[id number] 01:55:00 Test Item Value Reference Range Comments PROTIME (BEAKER) (test ihrn=663) 19.5 seconds 11.7-14.7 INR (BEAKER) (test wdkr=845) 1.7 <=5.9 PARTIAL THROMBOPLASTIN TIME (BEAKER) (test 96.8 seconds 22.5-36.0 fzfz=509) RECOMMENDED COUMADIN/WARFARIN INR THERAPY RANGESSTANDARD DOSE: 2.0 - 3.0 Includes: PROPHYLAXIS forvenous thrombosis, systemic embolization; TREATMENT for venous thrombosis and/or pulmonary embolus.HIGH RISK: Target INR is 2.5-3.5 for patients with mechanical heart valves.[id number] 01:55:00 Test Item Value Reference Range Comments PARTIAL THROMBOPLASTIN TIME (BEAKER) (test 96.8 seconds 22.5-36.0 vkdj=952) CBC W/PLT COUNT & AUTO [id number] 01:38:00 Test Item Value Reference Range Comments WHITE BLOOD CELL COUNT (BEAKER) (test mtpc=872) 5.5 K/ L 3.5-10.5 RED BLOOD CELL COUNT (BEAKER) (test wegb=481) 3.37 M/ L 4.63-6.08 HEMOGLOBIN (BEAKER) (test tqjh=509) 11.2 GM/DL 13.7-17.5 HEMATOCRIT (BEAKER) (test hiki=281) 33.6 % 40.1-51.0 MEAN CORPUSCULAR VOLUME (BEAKER) (test htvy=969) 99.7 fL 79.0-92.2 MEAN CORPUSCULAR HEMOGLOBIN (BEAKER) (test 33.2 pg 25.7-32.2 jrlg=369) MEAN CORPUSCULAR HEMOGLOBIN CONC (BEAKER) (test 33.3 GM/DL 32.3-36.5 pjlb=337) RED CELL DISTRIBUTION WIDTH (BEAKER) (test 14.7 % 11.6-14.4 xdfp=552) PLATELET COUNT (BEAKER) (test nvih=912) 113 K/CU MM 150-450 MEAN PLATELET VOLUME (BEAKER) (test cqxa=081) 9.8 fL 9.4-12.4 NUCLEATED RED BLOOD CELLS (BEAKER) (test 0 /100 WBC 0-0 mycn=183) NEUTROPHILS RELATIVE PERCENT (BEAKER) (test 64 % jwvr=235) LYMPHOCYTES RELATIVE PERCENT (BEAKER) (test 18 % csdx=035) MONOCYTES RELATIVE PERCENT (BEAKER) (test 15 % hnbr=540) EOSINOPHILS RELATIVE PERCENT (BEAKER) (test 2 % hmcy=648) BASOPHILS RELATIVE PERCENT (BEAKER) (test 1 % aqma=655) NEUTROPHILS ABSOLUTE COUNT (BEAKER) (test 3.50 K/ L 1.78-5.38 aoac=581) LYMPHOCYTES ABSOLUTE COUNT (BEAKER) (test 0.97 K/ L 1.32-3.57 ngyx=135) MONOCYTES ABSOLUTE COUNT (BEAKER) (test 0.82 K/ L 0.30-0.82 kvcw=277) EOSINOPHILS ABSOLUTE COUNT (BEAKER) (test 0.11 K/ L 0.04-0.54 kwxj=561) BASOPHILS ABSOLUTE COUNT (BEAKER) (test 0.04 K/ L 0.01-0.08 zjkh=345) IMMATURE GRANULOCYTES-RELATIVE PERCENT (BEAKER) 0 % 0-1 (test jqja=8847) [id number] 18:58:00 Test Item Value Reference Range Comments PARTIAL THROMBOPLASTIN TIME (BEAKER) (test 61.7 seconds 22.5-36.0 exlz=706) [id number] 09:22:00 Test Item Value Reference Range Comments PARTIAL THROMBOPLASTIN TIME (BEAKER) (test 61.5 seconds 22.5-36.0 beau=700) BASIC METABOLIC [id number] 02:14:00 Test Item Value Reference Range Comments SODIUM (BEAKER) (test 130 meq/L 136-145 rppb=550) POTASSIUM (BEAKER) (test 4.1 meq/L 3.5-5.1 lxhm=521) CHLORIDE (BEAKER) (test 93 meq/L 98-107 cxxo=374) CO2 (BEAKER) (test 24 meq/L 22-29 mbsv=299) BLOOD UREA NITROGEN 39 mg/dL 7-21 (BEAKER) (test aahg=228) CREATININE (BEAKER) (test 6.56 mg/dL 0.57-1.25 rhwr=743) GLUCOSE RANDOM (BEAKER) 84 mg/dL 70-105 (test geej=901) CALCIUM (BEAKER) (test 8.5 mg/dL 8.4-10.2 bbwx=649) EGFR (BEAKER) (test 11 mL/min/1.73 sq m ESTIMATED GFR IS NOT sqbx=1249) ACCURATE CREATININE CLEARANCE IN PREDICTING GLOMERULAR FILTRATION RATE. ESTIMATED GFR IS NOT APPLICABLE FOR DIALYSIS PATIENTS. PT/[id number] 01:43:00 Test Item Value Reference Range Comments PROTIME (BEAKER) (test zejf=460) 21.8 seconds 11.7-14.7 INR (BEAKER) (test lzkq=345) 1.9 <=5.9 PARTIAL THROMBOPLASTIN TIME (BEAKER) (test 62.7 seconds 22.5-36.0 bmgb=567) RECOMMENDED COUMADIN/WARFARIN INR THERAPY RANGESSTANDARD DOSE: 2.0 - 3.0 Includes: PROPHYLAXIS forvenous thrombosis, systemic embolization; TREATMENT for venous thrombosis and/or pulmonary embolus.HIGH RISK: Target INR is 2.5-3.5 for patients with mechanical heart valves.[id number] 01:43:00 Test Item Value Reference Range Comments PARTIAL THROMBOPLASTIN TIME (BEAKER) (test 62.7 seconds 22.5-36.0 hqsc=596) CBC W/PLT COUNT & AUTO [id number] 01:32:00 Test Item Value Reference Range Comments WHITE BLOOD CELL COUNT (BEAKER) (test whqv=695) 5.9 K/ L 3.5-10.5 RED BLOOD CELL COUNT (BEAKER) (test lupn=033) 3.41 M/ L 4.63-6.08 HEMOGLOBIN (BEAKER) (test ksac=992) 11.1 GM/DL 13.7-17.5 HEMATOCRIT (BEAKER) (test pbbm=589) 33.7 % 40.1-51.0 MEAN CORPUSCULAR VOLUME (BEAKER) (test evez=247) 98.8 fL 79.0-92.2 MEAN CORPUSCULAR HEMOGLOBIN (BEAKER) (test 32.6 pg 25.7-32.2 wufa=161) MEAN CORPUSCULAR HEMOGLOBIN CONC (BEAKER) (test 32.9 GM/DL 32.3-36.5 hrjx=877) RED CELL DISTRIBUTION WIDTH (BEAKER) (test 14.7 % 11.6-14.4 jwze=080) PLATELET COUNT (BEAKER) (test ncpc=508) 132 K/CU MM 150-450 MEAN PLATELET VOLUME (BEAKER) (test qfgb=222) 10.0 fL 9.4-12.4 NUCLEATED RED BLOOD CELLS (BEAKER) (test 0 /100 WBC 0-0 ewuw=464) NEUTROPHILS RELATIVE PERCENT (BEAKER) (test 64 % takl=223) LYMPHOCYTES RELATIVE PERCENT (BEAKER) (test 19 % ajom=020) MONOCYTES RELATIVE PERCENT (BEAKER) (test 14 % dmok=075) EOSINOPHILS RELATIVE PERCENT (BEAKER) (test 2 % xctx=224) BASOPHILS RELATIVE PERCENT (BEAKER) (test 1 % rwjh=757) NEUTROPHILS ABSOLUTE COUNT (BEAKER) (test 3.80 K/ L 1.78-5.38 fwhh=104) LYMPHOCYTES ABSOLUTE COUNT (BEAKER) (test 1.14 K/ L 1.32-3.57 bvrv=550) MONOCYTES ABSOLUTE COUNT (BEAKER) (test 0.80 K/ L 0.30-0.82 gklm=771) EOSINOPHILS ABSOLUTE COUNT (BEAKER) (test 0.13 K/ L 0.04-0.54 zsfk=519) BASOPHILS ABSOLUTE COUNT (BEAKER) (test 0.05 K/ L 0.01-0.08 yjcn=976) IMMATURE GRANULOCYTES-RELATIVE PERCENT (BEAKER) 0 % 0-1 (test typc=6904) [id number] 18:38:00 Test Item Value Reference Range Comments PARTIAL THROMBOPLASTIN TIME (BEAKER) (test 38.9 seconds 22.5-36.0 jbto=324) Prior to initiating heparinPLATELET [id number] 18:17:00 Test Item Value Reference Range Comments PLATELET COUNT (BEAKER) (test zpdz=786) 115 K/CU MM 150-450 RAD, CHEST, 2 [id number] 18:05:00Reason for exam:->sob and pleural effusionFINAL REPORT [...] superimposed pneumonia cannot be excluded. Signed: Bonny Sykes MDReport Verified Date/Time: 07/30/2018 18:05:46Reading Location: [facility] B1 C013W Consult Reading Room 06: 05 PMBASI METABOLIC [id number] 05:26:00 Test Item Value Reference Range Comments SODIUM (BEAKER) (test 137 meq/L 136-145 vryy=003) POTASSIUM (BEAKER) (test 3.9 meq/L 3.5-5.1 nsfc=156) CHLORIDE (BEAKER) (test 99 meq/L 98-107 rpnc=264) CO2 (BEAKER) (test 29 meq/L 22-29 jyvu=207) BLOOD UREA NITROGEN 27 mg/dL 7-21 (BEAKER) (test lmbg=571) CREATININE (BEAKER) (test 5.10 mg/dL 0.57-1.25 byfx=581) GLUCOSE RANDOM (BEAKER) 81 mg/dL 70-105 (test lwhv=909) CALCIUM (BEAKER) (test 8.7 mg/dL 8.4-10.2 iixk=172) EGFR (BEAKER) (test 14 mL/min/1.73 sq m ESTIMATED GFR IS NOT dfip=7427) ACCURATE CREATININE CLEARANCE IN PREDICTING GLOMERULAR FILTRATION RATE. ESTIMATED GFR IS NOT APPLICABLE FOR DIALYSIS PATIENTS. PT/[id number] 05:25:00 Test Item Value Reference Range Comments PROTIME (BEAKER) (test rvcx=500) 21.4 seconds 11.7-14.7 INR (BEAKER) (test jlis=784) 1.9 <=5.9 PARTIAL THROMBOPLASTIN TIME (BEAKER) (test 38.6 seconds 22.5-36.0 pvbv=278) RECOMMENDED COUMADIN/WARFARIN INR THERAPY RANGESSTANDARD DOSE: 2.0 - 3.0 Includes: PROPHYLAXIS forvenous thrombosis, systemic embolization; TREATMENT for venous thrombosis and/or pulmonary embolus.HIGH RISK: Target INR is 2.5-3.5 for patients with mechanical heart valves.PROTHROMBIN [id number] 05:24: 00 Test Item Value Reference Range Comments PROTIME (BEAKER) (test hxqd=786) 21.4 seconds 11.7-14.7 INR (BEAKER) (test bfwd=054) 1.9 <=5.9 RECOMMENDED COUMADIN/WARFARIN INR THERAPY RANGESSTANDARD DOSE: 2.0 - 3.0 Includes: PROPHYLAXIS forvenous thrombosis, systemic embolization; TREATMENT for venous thrombosis and/or pulmonary embolus.HIGH RISK: Target INR is 2.5-3.5 for patients with mechanical heart valves.CBC W/PLT COUNT & AUTO [id number] 05:12:00 Test Item Value Reference Range Comments WHITE BLOOD CELL COUNT (BEAKER) (test rfhl=425) 4.4 K/ L 3.5-10.5 RED BLOOD CELL COUNT (BEAKER) (test rvir=040) 3.39 M/ L 4.63-6.08 HEMOGLOBIN (BEAKER) (test rjsy=993) 10.9 GM/DL 13.7-17.5 HEMATOCRIT (BEAKER) (test mngy=017) 34.4 % 40.1-51.0 MEAN CORPUSCULAR VOLUME (BEAKER) (test awsp=675) 101.5 fL 79.0-92.2 MEAN CORPUSCULAR HEMOGLOBIN (BEAKER) (test 32.2 pg 25.7-32.2 wbbn=377) MEAN CORPUSCULAR HEMOGLOBIN CONC (BEAKER) (test 31.7 GM/DL 32.3-36.5 ikrk=728) RED CELL DISTRIBUTION WIDTH (BEAKER) (test 15.1 % 11.6-14.4 xfoj=269) PLATELET COUNT (BEAKER) (test qzcq=420) 98 K/CU MM 150-450 MEAN PLATELET VOLUME (BEAKER) (test gprn=140) 8.8 fL 9.4-12.4 NUCLEATED RED BLOOD CELLS (BEAKER) (test 0 /100 WBC 0-0 dipg=542) NEUTROPHILS RELATIVE PERCENT (BEAKER) (test 58 % ykdc=021) LYMPHOCYTES RELATIVE PERCENT (BEAKER) (test 20 % lhdr=770) MONOCYTES RELATIVE PERCENT (BEAKER) (test 19 % lkyy=219) EOSINOPHILS RELATIVE PERCENT (BEAKER) (test 2 % bcuw=351) BASOPHILS RELATIVE PERCENT (BEAKER) (test 1 % twob=960) NEUTROPHILS ABSOLUTE COUNT (BEAKER) (test 2.55 K/ L 1.78-5.38 hifk=588) LYMPHOCYTES ABSOLUTE COUNT (BEAKER) (test 0.87 K/ L 1.32-3.57 lzss=711) MONOCYTES ABSOLUTE COUNT (BEAKER) (test gngz=280) 0.82 K/ L 0.30-0.82 EOSINOPHILS ABSOLUTE COUNT (BEAKER) (test 0.10 K/ L 0.04-0.54 wlkf=885) BASOPHILS ABSOLUTE COUNT (BEAKER) (test gwse=794) 0.03 K/ L 0.01-0.08 IMMATURE GRANULOCYTES-RELATIVE PERCENT (BEAKER) 1 % 0-1 (test qsww=8002) HEPATITIS B SURFACE [id number] 12:09:00 Test Item Value Reference Range Comments HEPATITIS B SURFACE ANTIGEN (2) (BEAKER) (test Nonreactive Nonreactive wzzo=9004) POCT-GLUCOSE [id number] 07:50:00 Test Item Value Reference Range Comments POC-GLUCOSE METER (BEAKER) 93 mg/dL 70-110 TESTED AT [address] (test jrua=5541) [facility] [address] PT/[id number] 04:59:00 Test Item Value Reference Range Comments PROTIME (BEAKER) (test ywfj=025) 20.8 seconds 11.7-14.7 INR (BEAKER) (test opet=280) 1.8 <=5.9 PARTIAL THROMBOPLASTIN TIME (BEAKER) (test 46.4 seconds 22.5-36.0 fdyt=668) RECOMMENDED COUMADIN/WARFARIN INR THERAPY RANGESSTANDARD DOSE: 2.0 - 3.0 Includes: PROPHYLAXIS forvenous thrombosis, systemic embolization; TREATMENT for venous thrombosis and/or pulmonary embolus.HIGH RISK: Target INR is 2.5-3.5 for patients with mechanical heart valves.BASIC METABOLIC [id number] 04:59: 00 Test Item Value Reference Range Comments SODIUM (BEAKER) (test 137 meq/L 136-145 drka=220) POTASSIUM (BEAKER) (test 3.4 meq/L 3.5-5.1 bqlb=519) CHLORIDE (BEAKER) (test 96 meq/L 98-107 euxd=859) CO2 (BEAKER) (test 28 meq/L 22-29 bspn=919) BLOOD UREA NITROGEN 44 mg/dL 7-21 (BEAKER) (test zcuc=177) CREATININE (BEAKER) (test 7.25 mg/dL 0.57-1.25 dmdz=832) GLUCOSE RANDOM (BEAKER) 98 mg/dL 70-105 (test jbev=054) CALCIUM (BEAKER) (test 8.8 mg/dL 8.4-10.2 dvug=463) EGFR (BEAKER) (test 9 mL/min/1.73 sq m ESTIMATED GFR IS NOT biew=8062) ACCURATE CREATININE CLEARANCE IN PREDICTING GLOMERULAR FILTRATION RATE. ESTIMATED GFR IS NOT APPLICABLE FOR DIALYSIS PATIENTS. CBC W/PLT COUNT & AUTO [id number] 04:51:00 Test Item Value Reference Range Comments WHITE BLOOD CELL COUNT (BEAKER) (test dbtw=881) 5.1 K/ L 3.5-10.5 RED BLOOD CELL COUNT (BEAKER) (test acak=980) 3.27 M/ L 4.63-6.08 HEMOGLOBIN (BEAKER) (test rohf=004) 10.6 GM/DL 13.7-17.5 HEMATOCRIT (BEAKER) (test imkd=181) 32.8 % 40.1-51.0 MEAN CORPUSCULAR VOLUME (BEAKER) (test ecmn=621) 100.3 fL 79.0-92.2 MEAN CORPUSCULAR HEMOGLOBIN (BEAKER) (test 32.4 pg 25.7-32.2 lqby=651) MEAN CORPUSCULAR HEMOGLOBIN CONC (BEAKER) (test 32.3 GM/DL 32.3-36.5 wobq=553) RED CELL DISTRIBUTION WIDTH (BEAKER) (test 14.9 % 11.6-14.4 rawc=285) PLATELET COUNT (BEAKER) (test lnlc=051) 108 K/CU MM 150-450 MEAN PLATELET VOLUME (BEAKER) (test hrlk=705) 9.7 fL 9.4-12.4 NUCLEATED RED BLOOD CELLS (BEAKER) (test 0 /100 WBC 0-0 zprj=161) NEUTROPHILS RELATIVE PERCENT (BEAKER) (test 56 % ocos=421) LYMPHOCYTES RELATIVE PERCENT (BEAKER) (test 24 % fwbe=183) MONOCYTES RELATIVE PERCENT (BEAKER) (test 17 % sfgp=534) EOSINOPHILS RELATIVE PERCENT (BEAKER) (test 2 % cgfe=119) BASOPHILS RELATIVE PERCENT (BEAKER) (test 1 % kudf=178) NEUTROPHILS ABSOLUTE COUNT (BEAKER) (test 2.86 K/ L 1.78-5.38 taks=876) LYMPHOCYTES ABSOLUTE COUNT (BEAKER) (test 1.21 K/ L 1.32-3.57 mati=720) MONOCYTES ABSOLUTE COUNT (BEAKER) (test 0.87 K/ L 0.30-0.82 vrhi=432) EOSINOPHILS ABSOLUTE COUNT (BEAKER) (test 0.12 K/ L 0.04-0.54 nlzv=508) BASOPHILS ABSOLUTE COUNT (BEAKER) (test 0.05 K/ L 0.01-0.08 uiqr=838) IMMATURE GRANULOCYTES-RELATIVE PERCENT (BEAKER) 0 % 0-1 (test yfve=1339) AFB CULTURE + [id number] 16:13:00 Test Item Value Reference Range Comments CULTURE (BEAKER) (test No acid-fast bacilli isolated pawf=0563) in 42 days AFB SMEAR (BEAKER) (test No acid fast bacilli seen vpgt=874) AFB CULTURE + [id number] 16:13:00 Test Item Value Reference Range Comments CULTURE (BEAKER) (test No acid-fast bacilli isolated qclp=4374) in 42 days AFB SMEAR (BEAKER) (test No acid fast bacilli seen bmfi=553) FUNGUS CULTURE + [id number] 07:13:00 Test Item Value Reference Range Comments CULTURE (BEAKER) (test No fungus isolated in 28 days yesb=8515) FUNGUS SMEAR (BEAKER) (test No fungi seen uubd=1404) FUNGUS CULTURE + [id number] 07:13:00 Test Item Value Reference Range Comments CULTURE (BEAKER) (test No fungus isolated in 28 days fhkq=1299) FUNGUS SMEAR (BEAKER) (test No fungi seen nfqu=0863) TISSUE [id number] 19:17:00Surgical Pathology Report Case: [id number] Authorizing Provider: Juliana Martinez MD Collected: 05/23/201825 Ordering Location: [facility] Received: 05/23/2018 0923 SERVICES Pathologist: Brigida Parks MD Specimen: SoftTissue, Other, LEFT GROIN - TISSUE BIOPSY SKIN AND SOFT TISSUE,GROIN,LEFT, BIOPSY: - ABSCESSES, GRANULOMAS AND CHRONIC INFLAMMATION - NEGATIVE FOR DYSPLASIA OR MALIGNANCY - AFB AND GMS STAINS ARE NEGATIVE (SEE COMMENT) Signing Pathologist Direct Phone Line: [phone] signed by Brigida Parks MD on 06/02/2018 at 7:17 PMCorrelation with culture studies is recommended.[id number] abscess groinLeft groin tissue biopsyReceived fresh labeled "soft tissue, other ", description "left groin tissue biopsy" are two dark-porter, wrinkled,hair- bearing strips of skin measuring 1.5 and 2.6 cm in length, 0.3 cm in diameter and excised to a depth of 0.3 cm.Sectioning reveals no discrete masses.The specimen is entirely submitted in cassettesA1. DB/ewPOCT-GLUCOSE [id number] 08:51:00 Test Item Value Reference Range Comments POC-GLUCOSE METER (BEAKER) 101 mg/dL 70-110 TESTED AT [facility] [address] [facility] (test wsse=6908) [facility] [address] CBC W/PLT COUNT & AUTO [id number] 06:01:00 Test Item Value Reference Range Comments WHITE BLOOD CELL COUNT (BEAKER) (test ujvn=961) 7.1 K/ L 3.5-10.5 RED BLOOD CELL COUNT (BEAKER) (test sgeo=298) 3.50 M/ L 4.63-6.08 HEMOGLOBIN (BEAKER) (test pqsg=923) 10.7 GM/DL 13.7-17.5 HEMATOCRIT (BEAKER) (test vuuu=842) 33.4 % 40.1-51.0 MEAN CORPUSCULAR VOLUME (BEAKER) (test hcaq=326) 95.4 fL 79.0-92.2 MEAN CORPUSCULAR HEMOGLOBIN (BEAKER) (test 30.6 pg 25.7-32.2 wpjs=342) MEAN CORPUSCULAR HEMOGLOBIN CONC (BEAKER) (test 32.0 GM/DL 32.3-36.5 qkhj=142) RED CELL DISTRIBUTION WIDTH (BEAKER) (test 17.5 % 11.6-14.4 yiia=869) PLATELET COUNT (BEAKER) (test wveh=847) 159 K/CU MM 150-450 MEAN PLATELET VOLUME (BEAKER) (test ohma=989) 9.8 fL 9.4-12.4 NUCLEATED RED BLOOD CELLS (BEAKER) (test 1 /100 WBC 0-0 ejwx=588) NEUTROPHILS RELATIVE PERCENT (BEAKER) (test 66 % gfyv=128) LYMPHOCYTES RELATIVE PERCENT (BEAKER) (test 20 % xbqj=248) MONOCYTES RELATIVE PERCENT (BEAKER) (test 11 % ptpy=983) EOSINOPHILS RELATIVE PERCENT (BEAKER) (test 1 % loxu=697) BASOPHILS RELATIVE PERCENT (BEAKER) (test 1 % wmjw=702) NEUTROPHILS ABSOLUTE COUNT (BEAKER) (test 4.70 K/ L 1.78-5.38 rcaq=775) LYMPHOCYTES ABSOLUTE COUNT (BEAKER) (test 1.39 K/ L 1.32-3.57 bekb=499) MONOCYTES ABSOLUTE COUNT (BEAKER) (test 0.78 K/ L 0.30-0.82 xpzh=858) EOSINOPHILS ABSOLUTE COUNT (BEAKER) (test 0.10 K/ L 0.04-0.54 dmvu=306) BASOPHILS ABSOLUTE COUNT (BEAKER) (test 0.08 K/ L 0.01-0.08 ksxq=430) IMMATURE GRANULOCYTES-RELATIVE PERCENT (BEAKER) 1 % 0-1 (test dfln=2468) PROTHROMBIN [id number] 05:51:00 Test Item Value Reference Range Comments PROTIME (BEAKER) (test qqwe=434) 25.9 seconds 11.7-14.7 INR (BEAKER) (test rfdm=883) 2.4 <=5.9 RECOMMENDED COUMADIN/WARFARIN INR THERAPY RANGESSTANDARD DOSE: 2.0 - 3.0 Includes: PROPHYLAXIS forvenous thrombosis, systemic embolization; TREATMENT for venous thrombosis and/or pulmonary embolus.HIGH RISK: Target INR is 2.5-3.5 for patients with mechanical heart valves.BASIC METABOLIC [id number] 05:46: 00 Test Item Value Reference Range Comments SODIUM (BEAKER) (test 134 meq/L 136-145 nahn=468) POTASSIUM (BEAKER) (test 4.1 meq/L 3.5-5.1 jgsu=870) CHLORIDE (BEAKER) (test 98 meq/L 98-107 yovn=486) CO2 (BEAKER) (test 27 meq/L 22-29 dcyx=363) BLOOD UREA NITROGEN 28 mg/dL 7-21 (BEAKER) (test tmge=098) CREATININE (BEAKER) (test 5.07 mg/dL 0.57-1.25 sdsl=238) GLUCOSE RANDOM (BEAKER) 110 mg/dL 70-105 (test ifuj=557) CALCIUM (BEAKER) (test 9.0 mg/dL 8.4-10.2 zunv=800) EGFR (BEAKER) (test 14 mL/min/1.73 sq m ESTIMATED GFR IS NOT eceu=5547) ACCURATE CREATININE CLEARANCE IN PREDICTING GLOMERULAR FILTRATION RATE. ESTIMATED GFR IS NOT APPLICABLE FOR DIALYSIS PATIENTS. POCT-GLUCOSE [id number] 20:34:00 Test Item Value Reference Range Comments POC-GLUCOSE METER (BEAKER) 261 mg/dL 70-110 TESTED AT [address] (test yuoc=0498) [place] [address] POCT-GLUCOSE [id number] 18:12:00 Test Item Value Reference Range Comments POC-GLUCOSE METER (BEAKER) 139 mg/dL 70-110 TESTED AT [address] (test dubq=9637) [place] [address] POCT-GLUCOSE [id number] 11:51:00 Test Item Value Reference Range Comments POC-GLUCOSE METER (BEAKER) 147 mg/dL 70-110 TESTED AT [address] (test bquv=6567) [place] [id number] POCT-GLUCOSE [id number] 08:42:00 Test Item Value Reference Range Comments POC-GLUCOSE METER (BEAKER) 104 mg/dL 70-110 TESTED AT [address] (test qypw=8368) [place] [address] CBC W/PLT COUNT & AUTO [id number] 06:56:00 Test Item Value Reference Range Comments WHITE BLOOD CELL COUNT (BEAKER) (test wnqw=528) 8.0 K/ L 3.5-10.5 RED BLOOD CELL COUNT (BEAKER) (test zuwc=767) 3.40 M/ L 4.63-6.08 HEMOGLOBIN (BEAKER) (test qnre=422) 10.2 GM/DL 13.7-17.5 HEMATOCRIT (BEAKER) (test ogao=026) 32.0 % 40.1-51.0 MEAN CORPUSCULAR VOLUME (BEAKER) (test kjyg=177) 94.1 fL 79.0-92.2 MEAN CORPUSCULAR HEMOGLOBIN (BEAKER) (test 30.0 pg 25.7-32.2 bsys=846) MEAN CORPUSCULAR HEMOGLOBIN CONC (BEAKER) (test 31.9 GM/DL 32.3-36.5 rutw=109) RED CELL DISTRIBUTION WIDTH (BEAKER) (test 17.1 % 11.6-14.4 dmps=204) PLATELET COUNT (BEAKER) (test ekjk=453) 167 K/CU MM 150-450 MEAN PLATELET VOLUME (BEAKER) (test fdti=950) 9.3 fL 9.4-12.4 NUCLEATED RED BLOOD CELLS (BEAKER) (test 1 /100 WBC 0-0 pjke=350) NEUTROPHILS RELATIVE PERCENT (BEAKER) (test 69 % iook=818) LYMPHOCYTES RELATIVE PERCENT (BEAKER) (test 17 % abwd=388) MONOCYTES RELATIVE PERCENT (BEAKER) (test 11 % hkqv=986) EOSINOPHILS RELATIVE PERCENT (BEAKER) (test 2 % zspc=892) BASOPHILS RELATIVE PERCENT (BEAKER) (test 1 % hvxr=453) NEUTROPHILS ABSOLUTE COUNT (BEAKER) (test 5.54 K/ L 1.78-5.38 rsfv=949) LYMPHOCYTES ABSOLUTE COUNT (BEAKER) (test 1.33 K/ L 1.32-3.57 zyvz=073) MONOCYTES ABSOLUTE COUNT (BEAKER) (test 0.87 K/ L 0.30-0.82 zgxp=489) EOSINOPHILS ABSOLUTE COUNT (BEAKER) (test 0.12 K/ L 0.04-0.54 xawk=965) BASOPHILS ABSOLUTE COUNT (BEAKER) (test 0.06 K/ L 0.01-0.08 gtio=974) IMMATURE GRANULOCYTES-RELATIVE PERCENT (BEAKER) 1 % 0-1 (test dpxn=3524) BASIC METABOLIC [id number] 06:49:00 Test Item Value Reference Range Comments SODIUM (BEAKER) (test 130 meq/L 136-145 whui=018) POTASSIUM (BEAKER) (test 4.3 meq/L 3.5-5.1 rvxn=883) CHLORIDE (BEAKER) (test 93 meq/L 98-107 uskv=069) CO2 (BEAKER) (test 25 meq/L 22-29 mvbq=307) BLOOD UREA NITROGEN 41 mg/dL 7-21 (BEAKER) (test fxqv=233) CREATININE (BEAKER) (test 6.65 mg/dL 0.57-1.25 fbrc=239) GLUCOSE RANDOM (BEAKER) 113 mg/dL 70-105 (test ixlh=668) CALCIUM (BEAKER) (test 8.9 mg/dL 8.4-10.2 xvlh=024) EGFR (BEAKER) (test 10 mL/min/1.73 sq m ESTIMATED GFR IS NOT miwm=7008) ACCURATE CREATININE CLEARANCE IN PREDICTING GLOMERULAR FILTRATION RATE. ESTIMATED GFR IS NOT APPLICABLE FOR DIALYSIS PATIENTS. PROTHROMBIN [id number] 06:46:00 Test Item Value Reference Range Comments PROTIME (BEAKER) (test mctr=139) 26.9 seconds 11.7-14.7 INR (BEAKER) (test mtyi=819) 2.5 <=5.9 RECOMMENDED COUMADIN/WARFARIN INR THERAPY RANGESSTANDARD DOSE: 2.0 - 3.0 Includes: PROPHYLAXIS forvenous thrombosis, systemic embolization; TREATMENT for venous thrombosis and/or pulmonary embolus.HIGH RISK: Target INR is 2.5-3.5 for patients with mechanical heart valves.ANAEROBIC [id number] 00:38:00 Test Item Value Reference Range Comments CULTURE (BEAKER) (test wcjx=3049) No anaerobes isolated ANAEROBIC [id number] 00:38:00 Test Item Value Reference Range Comments CULTURE (BEAKER) (test tqoh=8547) No anaerobes isolated POCT-GLUCOSE [id number] 20:43:00 Test Item Value Reference Range Comments POC-GLUCOSE METER (BEAKER) 124 mg/dL 70-110 TESTED AT [address] (test qzoi=1294) [facility] [address] POCT-GLUCOSE [id number] 17:17:00 Test Item Value Reference Range Comments POC-GLUCOSE METER (BEAKER) 190 mg/dL 70-110 TESTED AT [address] (test wedl=4415) [facility] [address] POCT-GLUCOSE [id number] 11:54:00 Test Item Value Reference Range Comments POC-GLUCOSE METER (BEAKER) 195 mg/dL 70-110 TESTED AT [address] (test fxwb=1995) [facility] [address] C. DIFFICILE GDH [id number] 11:16:00 Test Item Value Reference Range Comments CDT TOXIN (test Negative Negative itub=[id number]) CDT GDH ANTIGEN (test Negative Negative No indication of Clostridium bdge=[id number]) difficile infection and no colonization. Discontinue enteric isolation and therapy. Testing performed by [employer] Rapid Cassette Assay. For GDH, published sensitivity of the assay is 98.7% compared to cytotoxicity testing. For Toxin AB, published sensitivity is 87.8% and specificity 99.4% compared to cytotoxicity testing.Verification of kit performance was done by the [facility] Microbiology Lab prior to clinical use.SURGICALLY OBTAINED CULTURE + GRAM [id number] 09:22:00 Test Item Value Reference Range Comments CULTURE (BEAKER) (test COAGULASE NEGATIVE <1+ Coagulase negative arne=8733) STAPHYLOCOCCUS Staphylococcus Clindamycin (test code=10) Erythromycin (test code=4) Linezolid (test code=40) Nitrofurantoin (test code=23) Oxacillin (test code=14) Rifampin (test code=43) Tetracycline (test code=2) Trimethoprim + Sulfamethoxazole (test code=47) Vancomycin (test code=13) GRAM STAIN RESULT 1+ WBCs (BEAKER) (test czym=2321) GRAM STAIN RESULT No organisms seen (BEAKER) (test drry=808522) SURGICALLY OBTAINED CULTURE + GRAM [id number] 09:20:00 Test Item Value Reference Range Comments CULTURE (BEAKER) (test jthl=6129) No growth GRAM STAIN RESULT (BEAKER) (test 4+ WBCs wbsc=2741) GRAM STAIN RESULT (BEAKER) (test No organisms seen hkcj=72584) POCT-GLUCOSE [id number] 08:21:00 Test Item Value Reference Range Comments POC-GLUCOSE METER (BEAKER) 101 mg/dL 70-110 TESTED AT [facility] [address] [facility] (test pcgp=6122) [facility] [address] BASIC METABOLIC [id number] 07:57:00 Test Item Value Reference Range Comments SODIUM (BEAKER) (test 135 meq/L 136-145 semh=505) POTASSIUM (BEAKER) (test 3.9 meq/L 3.5-5.1 lvco=019) CHLORIDE (BEAKER) (test 96 meq/L 98-107 bvyr=453) CO2 (BEAKER) (test 26 meq/L 22-29 xbvq=432) BLOOD UREA NITROGEN 29 mg/dL 7-21 (BEAKER) (test ogrz=088) CREATININE (BEAKER) (test 5.49 mg/dL 0.57-1.25 yjou=703) GLUCOSE RANDOM (BEAKER) 100 mg/dL 70-105 (test opfz=971) CALCIUM (BEAKER) (test 9.1 mg/dL 8.4-10.2 ofko=612) EGFR (BEAKER) (test 13 mL/min/1.73 sq m ESTIMATED GFR IS NOT wpne=6920) ACCURATE CREATININE CLEARANCE IN PREDICTING GLOMERULAR FILTRATION RATE. ESTIMATED GFR IS NOT APPLICABLE FOR DIALYSIS PATIENTS. PROTHROMBIN [id number] 06:36:00 Test Item Value Reference Range Comments PROTIME (BEAKER) (test irmr=859) 25.3 seconds 11.7-14.7 INR (BEAKER) (test oycv=224) 2.3 <=5.9 RECOMMENDED COUMADIN/WARFARIN INR THERAPY RANGESSTANDARD DOSE: 2.0 - 3.0 Includes: PROPHYLAXIS forvenous thrombosis, systemic embolization; TREATMENT for venous thrombosis and/or pulmonary embolus.HIGH RISK: Target INR is 2.5-3.5 for patients with mechanical heart valves.CBC W/PLT COUNT & AUTO [id number] 06:27:00 Test Item Value Reference Range Comments WHITE BLOOD CELL COUNT (BEAKER) (test iaeo=063) 7.3 K/ L 3.5-10.5 RED BLOOD CELL COUNT (BEAKER) (test ljcb=839) 3.29 M/ L 4.63-6.08 HEMOGLOBIN (BEAKER) (test ibih=679) 9.8 GM/DL 13.7-17.5 HEMATOCRIT (BEAKER) (test msoc=871) 30.9 % 40.1-51.0 MEAN CORPUSCULAR VOLUME (BEAKER) (test nyps=114) 93.9 fL 79.0-92.2 MEAN CORPUSCULAR HEMOGLOBIN (BEAKER) (test 29.8 pg 25.7-32.2 tlwb=454) MEAN CORPUSCULAR HEMOGLOBIN CONC (BEAKER) (test 31.7 GM/DL 32.3-36.5 gdqv=419) RED CELL DISTRIBUTION WIDTH (BEAKER) (test 16.9 % 11.6-14.4 gavo=476) PLATELET COUNT (BEAKER) (test tzww=219) 153 K/CU MM 150-450 MEAN PLATELET VOLUME (BEAKER) (test yicg=398) 9.1 fL 9.4-12.4 NUCLEATED RED BLOOD CELLS (BEAKER) (test 0 /100 WBC 0-0 wpfq=353) NEUTROPHILS RELATIVE PERCENT (BEAKER) (test 66 % jkhu=246) LYMPHOCYTES RELATIVE PERCENT (BEAKER) (test 16 % shvp=456) MONOCYTES RELATIVE PERCENT (BEAKER) (test 15 % mfey=768) EOSINOPHILS RELATIVE PERCENT (BEAKER) (test 2 % steq=197) BASOPHILS RELATIVE PERCENT (BEAKER) (test 1 % tfyn=907) NEUTROPHILS ABSOLUTE COUNT (BEAKER) (test 4.75 K/ L 1.78-5.38 krar=430) LYMPHOCYTES ABSOLUTE COUNT (BEAKER) (test 1.14 K/ L 1.32-3.57 tsjj=246) MONOCYTES ABSOLUTE COUNT (BEAKER) (test 1.05 K/ L 0.30-0.82 rdad=520) EOSINOPHILS ABSOLUTE COUNT (BEAKER) (test 0.13 K/ L 0.04-0.54 rjwd=647) BASOPHILS ABSOLUTE COUNT (BEAKER) (test 0.07 K/ L 0.01-0.08 ljxs=092) IMMATURE GRANULOCYTES-RELATIVE PERCENT (BEAKER) 2 % 0-1 (test dnuq=2130) POCT-GLUCOSE [id number] 21:40:00 Test Item Value Reference Range Comments POC-GLUCOSE METER (BEAKER) 176 mg/dL 70-110 TESTED AT [address] (test bhuj=8086) [place] [id number] POCT-GLUCOSE [id number] 16:07:00 Test Item Value Reference Range Comments POC-GLUCOSE METER (BEAKER) 120 mg/dL 70-110 TESTED AT [address] (test hdsk=2846) [place] [address] POCT-GLUCOSE [id number] 08:31:00 Test Item Value Reference Range Comments POC-GLUCOSE METER (BEAKER) 119 mg/dL 70-110 TESTED AT [address] (test twag=3487) [place] [id number] BASIC METABOLIC [id number] 08:19:00 Test Item Value Reference Range Comments SODIUM (BEAKER) (test 133 meq/L 136-145 cdms=697) POTASSIUM (BEAKER) (test 3.8 meq/L 3.5-5.1 cwsh=463) CHLORIDE (BEAKER) (test 97 meq/L 98-107 jlvs=118) CO2 (BEAKER) (test 26 meq/L 22-29 woxs=255) BLOOD UREA NITROGEN 19 mg/dL 7-21 (BEAKER) (test xuil=820) CREATININE (BEAKER) (test 4.05 mg/dL 0.57-1.25 jxxq=906) GLUCOSE RANDOM (BEAKER) 107 mg/dL 70-105 (test vtgr=923) CALCIUM (BEAKER) (test 9.0 mg/dL 8.4-10.2 eorv=019) EGFR (BEAKER) (test 18 mL/min/1.73 sq m ESTIMATED GFR IS NOT nhzf=0503) ACCURATE CREATININE CLEARANCE IN PREDICTING GLOMERULAR FILTRATION RATE. ESTIMATED GFR IS NOT APPLICABLE FOR DIALYSIS PATIENTS. VANCOMYCIN LEVEL, [id number] 08:16:00 Test Item Value Reference Range Comments VANCOMYCIN RANDOM (BEAKER) (test jcht=917) 17.6 ug/mL Reference Range: No NormalsPROTHROMBIN [id number] 07:21:00 Test Item Value Reference Range Comments PROTIME (BEAKER) (test qlnl=342) 22.0 seconds 11.7-14.7 INR (BEAKER) (test ppai=472) 1.9 <=5.9 RECOMMENDED COUMADIN/WARFARIN INR THERAPY RANGESSTANDARD DOSE: 2.0 - 3.0 Includes: PROPHYLAXIS forvenous thrombosis, systemic embolization; TREATMENT for venous thrombosis and/or pulmonary embolus.HIGH RISK: Target INR is 2.5-3.5 for patients with mechanical heart valves.CBC W/PLT COUNT & AUTO [id number] 07:02:00 Test Item Value Reference Range Comments WHITE BLOOD CELL COUNT (BEAKER) (test yznm=878) 8.2 K/ L 3.5-10.5 RED BLOOD CELL COUNT (BEAKER) (test qpac=777) 3.46 M/ L 4.63-6.08 HEMOGLOBIN (BEAKER) (test yuhv=554) 10.4 GM/DL 13.7-17.5 HEMATOCRIT (BEAKER) (test cevt=364) 32.8 % 40.1-51.0 MEAN CORPUSCULAR VOLUME (BEAKER) (test ykqy=449) 94.8 fL 79.0-92.2 MEAN CORPUSCULAR HEMOGLOBIN (BEAKER) (test 30.1 pg 25.7-32.2 uobo=889) MEAN CORPUSCULAR HEMOGLOBIN CONC (BEAKER) (test 31.7 GM/DL 32.3-36.5 cmnn=591) RED CELL DISTRIBUTION WIDTH (BEAKER) (test 16.7 % 11.6-14.4 wxal=903) PLATELET COUNT (BEAKER) (test iiwd=818) 167 K/CU MM 150-450 MEAN PLATELET VOLUME (BEAKER) (test lwoi=112) 9.7 fL 9.4-12.4 NUCLEATED RED BLOOD CELLS (BEAKER) (test 0 /100 WBC 0-0 dmbf=852) NEUTROPHILS RELATIVE PERCENT (BEAKER) (test 69 % vhso=432) LYMPHOCYTES RELATIVE PERCENT (BEAKER) (test 13 % tosi=530) MONOCYTES RELATIVE PERCENT (BEAKER) (test 12 % yalt=615) EOSINOPHILS RELATIVE PERCENT (BEAKER) (test 2 % nvmy=533) BASOPHILS RELATIVE PERCENT (BEAKER) (test 1 % shjg=860) NEUTROPHILS ABSOLUTE COUNT (BEAKER) (test 5.72 K/ L 1.78-5.38 jjfr=889) LYMPHOCYTES ABSOLUTE COUNT (BEAKER) (test 1.07 K/ L 1.32-3.57 poqq=968) MONOCYTES ABSOLUTE COUNT (BEAKER) (test 1.02 K/ L 0.30-0.82 klpa=629) EOSINOPHILS ABSOLUTE COUNT (BEAKER) (test 0.18 K/ L 0.04-0.54 ouqr=453) BASOPHILS ABSOLUTE COUNT (BEAKER) (test 0.07 K/ L 0.01-0.08 bhgp=014) IMMATURE GRANULOCYTES-RELATIVE PERCENT (BEAKER) 2 % 0-1 (test twpu=0380) BLOOD [id number] 06:00:00 Test Item Value Reference Range Comments CULTURE (BEAKER) (test zzwy=2821) No growth in 5 days BLOOD [id number] 00:00:00 Test Item Value Reference Range Comments CULTURE (BEAKER) (test mquk=3210) No growth in 5 days POCT-GLUCOSE [id number] 22:05:00 Test Item Value Reference Range Comments POC-GLUCOSE METER (BEAKER) 169 mg/dL 70-110 TESTED AT [address] (test umvk=0470) [facility] [address] POCT-GLUCOSE [id number] 18:20:00 Test Item Value Reference Range Comments POC-GLUCOSE METER (BEAKER) 110 mg/dL 70-110 TESTED AT [address] (test cxpk=1839) [place] [id number] POCT-GLUCOSE [id number] 17:17:00 Test Item Value Reference Range Comments POC-GLUCOSE METER (BEAKER) 99 mg/dL 70-110 TESTED AT [address] (test jish=9362) [place] [address] SPIN/CONCENTRATION [id number] 14:49:00 Test Item Value Reference Range Comments CONCENTRATION CHARGED (BEAKER) (test qplm=9458) Done SPIN/CONCENTRATION [id number] 14:49:00 Test Item Value Reference Range Comments CONCENTRATION CHARGED (BEAKER) (test xpic=8096) Done POCT-GLUCOSE [id number] 12:13:00 Test Item Value Reference Range Comments POC-GLUCOSE METER (BEAKER) 188 mg/dL 70-110 TESTED AT [address] (test drdx=0949) [facility] [address] BASIC METABOLIC [id number] 09:56:00 Test Item Value Reference Range Comments SODIUM (BEAKER) (test 132 meq/L 136-145 qouh=518) POTASSIUM (BEAKER) (test 4.1 meq/L 3.5-5.1 rjnq=547) CHLORIDE (BEAKER) (test 96 meq/L 98-107 jmzh=761) CO2 (BEAKER) (test 24 meq/L 22-29 eoqy=843) BLOOD UREA NITROGEN 30 mg/dL 7-21 (BEAKER) (test oyqe=676) CREATININE (BEAKER) (test 5.66 mg/dL 0.57-1.25 bzgx=149) GLUCOSE RANDOM (BEAKER) 98 mg/dL 70-105 (test lhit=406) CALCIUM (BEAKER) (test 8.7 mg/dL 8.4-10.2 tybj=690) EGFR (BEAKER) (test 12 mL/min/1.73 sq m ESTIMATED GFR IS NOT wxdw=2061) ACCURATE CREATININE CLEARANCE IN PREDICTING GLOMERULAR FILTRATION RATE. ESTIMATED GFR IS NOT APPLICABLE FOR DIALYSIS PATIENTS. POCT-GLUCOSE [id number] 07:45:00 Test Item Value Reference Range Comments POC-GLUCOSE METER (BEAKER) 108 mg/dL 70-110 TESTED AT [facility] [address] (test htqf=7030) [facility] [address] CBC W/PLT COUNT & AUTO [id number] 07:00:00 Test Item Value Reference Range Comments WHITE BLOOD CELL COUNT (BEAKER) (test lqrj=127) 11.1 K/ L 3.5-10.5 RED BLOOD CELL COUNT (BEAKER) (test qymu=165) 3.30 M/ L 4.63-6.08 HEMOGLOBIN (BEAKER) (test qwac=070) 10.0 GM/DL 13.7-17.5 HEMATOCRIT (BEAKER) (test fhhx=625) 31.4 % 40.1-51.0 MEAN CORPUSCULAR VOLUME (BEAKER) (test igqp=984) 95.2 fL 79.0-92.2 MEAN CORPUSCULAR HEMOGLOBIN (BEAKER) (test 30.3 pg 25.7-32.2 rtah=238) MEAN CORPUSCULAR HEMOGLOBIN CONC (BEAKER) (test 31.8 GM/DL 32.3-36.5 enae=064) RED CELL DISTRIBUTION WIDTH (BEAKER) (test 16.3 % 11.6-14.4 qfed=843) PLATELET COUNT (BEAKER) (test umld=183) 166 K/CU MM 150-450 MEAN PLATELET VOLUME (BEAKER) (test nwnq=608) 9.4 fL 9.4-12.4 NUCLEATED RED BLOOD CELLS (BEAKER) (test 0 /100 WBC 0-0 kzyw=863) NEUTROPHILS RELATIVE PERCENT (BEAKER) (test 72 % dzum=053) LYMPHOCYTES RELATIVE PERCENT (BEAKER) (test 11 % mlta=969) MONOCYTES RELATIVE PERCENT (BEAKER) (test 12 % wcin=752) EOSINOPHILS RELATIVE PERCENT (BEAKER) (test 2 % qbfm=862) BASOPHILS RELATIVE PERCENT (BEAKER) (test 1 % sutw=800) NEUTROPHILS ABSOLUTE COUNT (BEAKER) (test 7.96 K/ L 1.78-5.38 qvvc=729) LYMPHOCYTES ABSOLUTE COUNT (BEAKER) (test 1.25 K/ L 1.32-3.57 tcjc=140) MONOCYTES ABSOLUTE COUNT (BEAKER) (test 1.27 K/ L 0.30-0.82 otmf=428) EOSINOPHILS ABSOLUTE COUNT (BEAKER) (test 0.23 K/ L 0.04-0.54 uiqp=323) BASOPHILS ABSOLUTE COUNT (BEAKER) (test 0.07 K/ L 0.01-0.08 ctbi=158) IMMATURE GRANULOCYTES-RELATIVE PERCENT (BEAKER) 3 % 0-1 (test dzhu=2304) PROTHROMBIN [id number] 06:47:00 Test Item Value Reference Range Comments PROTIME (BEAKER) (test oxcg=154) 20.7 seconds 11.7-14.7 INR (BEAKER) (test csjk=546) 1.8 <=5.9 RECOMMENDED COUMADIN/WARFARIN INR THERAPY RANGESSTANDARD DOSE: 2.0 - 3.0 Includes: PROPHYLAXIS forvenous thrombosis, systemic embolization; TREATMENT for venous thrombosis and/or pulmonary embolus.HIGH RISK: Target INR is 2.5-3.5 for patients with mechanical heart valves.POCT-GLUCOSE [id number] 20:42:00 Test Item Value Reference Range Comments POC-GLUCOSE METER (BEAKER) 134 mg/dL 70-110 TESTED AT [address] (test rpgo=2289) [place] [address] POCT-GLUCOSE [id number] 13:29:00 Test Item Value Reference Range Comments POC-GLUCOSE METER (BEAKER) 209 mg/dL 70-110 TESTED AT [address] (test qczy=6053) [place] [address] POCT-GLUCOSE [id number] 08:53:00 Test Item Value Reference Range Comments POC-GLUCOSE METER (BEAKER) 103 mg/dL 70-110 TESTED AT [address] (test ujgm=8693) [place] [address] BASIC METABOLIC [id number] 07:47:00 Test Item Value Reference Range Comments SODIUM (BEAKER) (test 136 meq/L 136-145 shic=690) POTASSIUM (BEAKER) (test 4.0 meq/L 3.5-5.1 sdka=367) CHLORIDE (BEAKER) (test 100 meq/L 98-107 kfzg=365) CO2 (BEAKER) (test 27 meq/L 22-29 yixe=648) BLOOD UREA NITROGEN 22 mg/dL 7-21 (BEAKER) (test quyu=076) CREATININE (BEAKER) (test 4.63 mg/dL 0.57-1.25 acff=952) GLUCOSE RANDOM (BEAKER) 111 mg/dL 70-105 (test srdw=002) CALCIUM (BEAKER) (test 8.7 mg/dL 8.4-10.2 gktj=648) EGFR (BEAKER) (test 16 mL/min/1.73 sq m ESTIMATED GFR IS NOT kbng=7862) ACCURATE CREATININE CLEARANCE IN PREDICTING GLOMERULAR FILTRATION RATE. ESTIMATED GFR IS NOT APPLICABLE FOR DIALYSIS PATIENTS. WOUND CULTURE + GRAM [id number] 07:44:00 Test Item Value Reference Range Comments CULTURE (BEAKER) (test czgy=9182) No growth GRAM STAIN RESULT (BEAKER) (test No WBCs rfon=5742) GRAM STAIN RESULT (BEAKER) (test No organisms seen xxpz=65923) [id number] 07:38:00 Test Item Value Reference Range Comments PHOSPHORUS (BEAKER) (test iqlq=326) 3.2 mg/dL 2.3-4.7 CBC W/PLT COUNT & AUTO [id number] 06:35:00 Test Item Value Reference Range Comments WHITE BLOOD CELL COUNT (BEAKER) (test tnpb=243) 11.0 K/ L 3.5-10.5 RED BLOOD CELL COUNT (BEAKER) (test kiwd=979) 3.30 M/ L 4.63-6.08 HEMOGLOBIN (BEAKER) (test irjz=148) 9.9 GM/DL 13.7-17.5 HEMATOCRIT (BEAKER) (test dtgs=182) 31.2 % 40.1-51.0 MEAN CORPUSCULAR VOLUME (BEAKER) (test ojop=613) 94.5 fL 79.0-92.2 MEAN CORPUSCULAR HEMOGLOBIN (BEAKER) (test 30.0 pg 25.7-32.2 dnkv=075) MEAN CORPUSCULAR HEMOGLOBIN CONC (BEAKER) (test 31.7 GM/DL 32.3-36.5 wiqc=799) RED CELL DISTRIBUTION WIDTH (BEAKER) (test 16.1 % 11.6-14.4 uoym=979) PLATELET COUNT (BEAKER) (test jjcn=297) 184 K/CU MM 150-450 MEAN PLATELET VOLUME (BEAKER) (test gucc=373) 9.5 fL 9.4-12.4 NUCLEATED RED BLOOD CELLS (BEAKER) (test 0 /100 WBC 0-0 vktv=183) NEUTROPHILS RELATIVE PERCENT (BEAKER) (test 79 % rqzw=663) LYMPHOCYTES RELATIVE PERCENT (BEAKER) (test 8 % gkvc=448) MONOCYTES RELATIVE PERCENT (BEAKER) (test 8 % sxyq=916) EOSINOPHILS RELATIVE PERCENT (BEAKER) (test 2 % wtrm=910) BASOPHILS RELATIVE PERCENT (BEAKER) (test 1 % dctt=092) NEUTROPHILS ABSOLUTE COUNT (BEAKER) (test 8.70 K/ L 1.78-5.38 jzaq=513) LYMPHOCYTES ABSOLUTE COUNT (BEAKER) (test 0.86 K/ L 1.32-3.57 ewcr=454) MONOCYTES ABSOLUTE COUNT (BEAKER) (test 0.91 K/ L 0.30-0.82 hyig=398) EOSINOPHILS ABSOLUTE COUNT (BEAKER) (test 0.24 K/ L 0.04-0.54 tvda=839) BASOPHILS ABSOLUTE COUNT (BEAKER) (test 0.08 K/ L 0.01-0.08 hlkp=237) IMMATURE GRANULOCYTES-RELATIVE PERCENT (BEAKER) 2 % 0-1 (test orsh=9148) PROTHROMBIN [id number] 06:32:00 Test Item Value Reference Range Comments PROTIME (BEAKER) (test hlnl=588) 23.2 seconds 11.7-14.7 INR (BEAKER) (test bncc=106) 2.1 <=5.9 RECOMMENDED COUMADIN/WARFARIN INR THERAPY RANGESSTANDARD DOSE: 2.0 - 3.0 Includes: PROPHYLAXIS forvenous thrombosis, systemic embolization; TREATMENT for venous thrombosis and/or pulmonary embolus.HIGH RISK: Target INR is 2.5-3.5 for patients with mechanical heart valves.POCT-GLUCOSE [id number] 21:21:00 Test Item Value Reference Range Comments POC-GLUCOSE METER (BEAKER) 177 mg/dL 70-110 TESTED AT [facility] [address] (test cssy=6908) [facility] [address] POCT-GLUCOSE [id number] 17:53:00 Test Item Value Reference Range Comments POC-GLUCOSE METER (BEAKER) 89 mg/dL 70-110 TESTED AT [address] (test hpkh=4539) [facility] [id number] IRON, TIBC, % SAT. (WITHOUT FERRITIN)[id number] 17:45:00 Test Item Value Reference Range Comments IRON (BEAKER) (test lmfm=361) 63 ug/dL 40-160 TOTAL IRON BINDING CAPACITY (BEAKER) (test 203 ug/dL 250-450 kpdm=118) IRON % SATURATION (2) (BEAKER) (test wgxi=7526) 31 % 20-55 [id number] 16:07:00 Test Item Value Reference Range Comments PHOSPHORUS (BEAKER) (test twil=687) 5.4 mg/dL 2.3-4.7 POCT-GLUCOSE [id number] 12:41:00 Test Item Value Reference Range Comments POC-GLUCOSE METER (BEAKER) 110 mg/dL 70-110 TESTED AT [address] (test yyye=4213) [place] [id number] POCT-GLUCOSE [id number] 07:00:00 Test Item Value Reference Range Comments POC-GLUCOSE METER (BEAKER) 159 mg/dL 70-110 TESTED AT [address] (test imhq=4817) [facility] [address] BASIC METABOLIC [id number] 05:19:00 Test Item Value Reference Range Comments SODIUM (BEAKER) (test 136 meq/L 136-145 yysl=918) POTASSIUM (BEAKER) (test 3.6 meq/L 3.5-5.1 wyfp=793) CHLORIDE (BEAKER) (test 98 meq/L 98-107 mpci=189) CO2 (BEAKER) (test 26 meq/L 22-29 zymc=567) BLOOD UREA NITROGEN 33 mg/dL 7-21 (BEAKER) (test uqon=377) CREATININE (BEAKER) (test 6.38 mg/dL 0.57-1.25 oegx=622) GLUCOSE RANDOM (BEAKER) 122 mg/dL 70-105 (test vhjx=943) CALCIUM (BEAKER) (test 8.4 mg/dL 8.4-10.2 zkwk=625) EGFR (BEAKER) (test 11 mL/min/1.73 sq m ESTIMATED GFR IS NOT mmkm=2614) ACCURATE CREATININE CLEARANCE IN PREDICTING GLOMERULAR FILTRATION RATE. ESTIMATED GFR IS NOT APPLICABLE FOR DIALYSIS PATIENTS. [id number] 05:18:00 Test Item Value Reference Range Comments MAGNESIUM (BEAKER) (test iqfk=105) 1.9 mg/dL 1.6-2.6 PROTHROMBIN [id number] 05:03:00 Test Item Value Reference Range Comments PROTIME (BEAKER) (test ofpx=441) 30.2 seconds 11.7-14.7 INR (BEAKER) (test iobk=282) 2.9 <=5.9 RECOMMENDED COUMADIN/WARFARIN INR THERAPY RANGESSTANDARD DOSE: 2.0 - 3.0 Includes: PROPHYLAXIS forvenous thrombosis, systemic embolization; TREATMENT for venous thrombosis and/or pulmonary embolus.HIGH RISK: Target INR is 2.5-3.5 for patients with mechanical heart valves.CBC W/PLT COUNT & AUTO [id number] 04:51:00 Test Item Value Reference Range Comments WHITE BLOOD CELL COUNT (BEAKER) (test qynh=421) 10.2 K/ L 3.5-10.5 RED BLOOD CELL COUNT (BEAKER) (test dlnq=248) 3.27 M/ L 4.63-6.08 HEMOGLOBIN (BEAKER) (test uabi=510) 9.7 GM/DL 13.7-17.5 HEMATOCRIT (BEAKER) (test ofal=078) 30.5 % 40.1-51.0 MEAN CORPUSCULAR VOLUME (BEAKER) (test npfd=319) 93.3 fL 79.0-92.2 MEAN CORPUSCULAR HEMOGLOBIN (BEAKER) (test 29.7 pg 25.7-32.2 ztfl=020) MEAN CORPUSCULAR HEMOGLOBIN CONC (BEAKER) (test 31.8 GM/DL 32.3-36.5 rdrx=555) RED CELL DISTRIBUTION WIDTH (BEAKER) (test 15.8 % 11.6-14.4 nfdi=978) PLATELET COUNT (BEAKER) (test hadi=197) 181 K/CU MM 150-450 MEAN PLATELET VOLUME (BEAKER) (test ivty=458) 9.4 fL 9.4-12.4 NUCLEATED RED BLOOD CELLS (BEAKER) (test 0 /100 WBC 0-0 baww=033) NEUTROPHILS RELATIVE PERCENT (BEAKER) (test 78 % pxdj=887) LYMPHOCYTES RELATIVE PERCENT (BEAKER) (test 8 % owuy=675) MONOCYTES RELATIVE PERCENT (BEAKER) (test 10 % icdo=640) EOSINOPHILS RELATIVE PERCENT (BEAKER) (test 2 % bjuu=456) BASOPHILS RELATIVE PERCENT (BEAKER) (test 1 % rjcg=299) NEUTROPHILS ABSOLUTE COUNT (BEAKER) (test 7.90 K/ L 1.78-5.38 tpso=297) LYMPHOCYTES ABSOLUTE COUNT (BEAKER) (test 0.86 K/ L 1.32-3.57 nitj=819) MONOCYTES ABSOLUTE COUNT (BEAKER) (test 1.01 K/ L 0.30-0.82 puxq=699) EOSINOPHILS ABSOLUTE COUNT (BEAKER) (test 0.17 K/ L 0.04-0.54 rqbk=344) BASOPHILS ABSOLUTE COUNT (BEAKER) (test 0.07 K/ L 0.01-0.08 dpcw=672) IMMATURE GRANULOCYTES-RELATIVE PERCENT (BEAKER) 2 % 0-1 (test cmjm=6641) POCT-GLUCOSE [id number] 23:35:00 Test Item Value Reference Range Comments POC-GLUCOSE METER (BEAKER) 190 mg/dL 70-110 TESTED AT [address] (test azql=5132) [place] [address] POCT-GLUCOSE [id number] 17:16:00 Test Item Value Reference Range Comments POC-GLUCOSE METER (BEAKER) 122 mg/dL 70-110 TESTED AT [address] (test rpdj=1376) [place] [address] U/S, TESTICULAR (SCROTUM)2018-05-21 14:53:00Reason for exam:->testicular swellingFINAL [...] Verified Date/ Time: 05/21/2018 14:53:00 Reading Location: [address] UltrasoundReading Room POCT-GLUCOSE [id number] 11:22:00 Test Item Value Reference Range Comments POC-GLUCOSE METER (BEAKER) 144 mg/dL 70-110 TESTED AT [address] (test zafz=4600) [facility] [address] POCT-GLUCOSE [id number] 07:05:00 Test Item Value Reference Range Comments POC-GLUCOSE METER (BEAKER) 171 mg/dL 70-110 TESTED AT [address] (test isfk=8147) [place] [id number] BASIC METABOLIC [id number] 06:19:00 Test Item Value Reference Range Comments SODIUM (BEAKER) (test 137 meq/L 136-145 wjwl=638) POTASSIUM (BEAKER) (test 3.3 meq/L 3.5-5.1 godh=787) CHLORIDE (BEAKER) (test 98 meq/L 98-107 xvbb=444) CO2 (BEAKER) (test 31 meq/L 22-29 wlxk=890) BLOOD UREA NITROGEN 22 mg/dL 7-21 (BEAKER) (test poxo=444) CREATININE (BEAKER) (test 4.82 mg/dL 0.57-1.25 xafx=446) GLUCOSE RANDOM (BEAKER) 161 mg/dL 70-105 (test xbyy=554) CALCIUM (BEAKER) (test 8.5 mg/dL 8.4-10.2 tjae=904) EGFR (BEAKER) (test 15 mL/min/1.73 sq m ESTIMATED GFR IS NOT ujcf=6610) ACCURATE CREATININE CLEARANCE IN PREDICTING GLOMERULAR FILTRATION RATE. ESTIMATED GFR IS NOT APPLICABLE FOR DIALYSIS PATIENTS. [id number] 06:04:00 Test Item Value Reference Range Comments MAGNESIUM (BEAKER) (test aakc=521) 1.9 mg/dL 1.6-2.6 PROTHROMBIN [id number] 05:31:00 Test Item Value Reference Range Comments PROTIME (BEAKER) (test qxtu=801) 29.0 seconds 11.7-14.7 INR (BEAKER) (test qclv=021) 2.7 <=5.9 RECOMMENDED COUMADIN/WARFARIN INR THERAPY RANGESSTANDARD DOSE: 2.0 - 3.0 Includes: PROPHYLAXIS forvenous thrombosis, systemic embolization; TREATMENT for venous thrombosis and/or pulmonary embolus.HIGH RISK: Target INR is 2.5-3.5 for patients with mechanical heart valves.CBC W/PLT COUNT & AUTO [id number] 05:27:00 Test Item Value Reference Range Comments WHITE BLOOD CELL COUNT (BEAKER) (test xhev=325) 9.5 K/ L 3.5-10.5 RED BLOOD CELL COUNT (BEAKER) (test opdv=974) 3.38 M/ L 4.63-6.08 HEMOGLOBIN (BEAKER) (test kxot=957) 10.0 GM/DL 13.7-17.5 HEMATOCRIT (BEAKER) (test vjkr=170) 31.5 % 40.1-51.0 MEAN CORPUSCULAR VOLUME (BEAKER) (test vxxz=919) 93.2 fL 79.0-92.2 MEAN CORPUSCULAR HEMOGLOBIN (BEAKER) (test 29.6 pg 25.7-32.2 nbfc=921) MEAN CORPUSCULAR HEMOGLOBIN CONC (BEAKER) (test 31.7 GM/DL 32.3-36.5 ykzt=410) RED CELL DISTRIBUTION WIDTH (BEAKER) (test 15.7 % 11.6-14.4 qmne=987) PLATELET COUNT (BEAKER) (test djyb=578) 178 K/CU MM 150-450 MEAN PLATELET VOLUME (BEAKER) (test ivyg=696) 8.7 fL 9.4-12.4 NUCLEATED RED BLOOD CELLS (BEAKER) (test 0 /100 WBC 0-0 iipj=597) NEUTROPHILS RELATIVE PERCENT (BEAKER) (test 77 % utgh=173) LYMPHOCYTES RELATIVE PERCENT (BEAKER) (test 9 % zoml=453) MONOCYTES RELATIVE PERCENT (BEAKER) (test 10 % dxgy=684) EOSINOPHILS RELATIVE PERCENT (BEAKER) (test 2 % lyac=075) BASOPHILS RELATIVE PERCENT (BEAKER) (test 1 % idiz=691) NEUTROPHILS ABSOLUTE COUNT (BEAKER) (test 7.36 K/ L 1.78-5.38 slnh=914) LYMPHOCYTES ABSOLUTE COUNT (BEAKER) (test 0.88 K/ L 1.32-3.57 tozf=576) MONOCYTES ABSOLUTE COUNT (BEAKER) (test 0.95 K/ L 0.30-0.82 obsf=884) EOSINOPHILS ABSOLUTE COUNT (BEAKER) (test 0.16 K/ L 0.04-0.54 kpgf=982) BASOPHILS ABSOLUTE COUNT (BEAKER) (test 0.05 K/ L 0.01-0.08 yocn=857) IMMATURE GRANULOCYTES-RELATIVE PERCENT (BEAKER) 1 % 0-1 (test ozjl=8775) POCT-GLUCOSE [id number] 21:29:00 Test Item Value Reference Range Comments POC-GLUCOSE METER (BEAKER) 156 mg/dL 70-110 TESTED AT [address] (test khve=2533) [facility] [address] POCT-GLUCOSE [id number] 18:14:00 Test Item Value Reference Range Comments POC-GLUCOSE METER (BEAKER) 93 mg/dL 70-110 TESTED AT [address] (test zfsx=8086) [facility] [address] PROTHROMBIN [id number] 13:26:00 Test Item Value Reference Range Comments PROTIME (BEAKER) (test slbe=972) 42.0 seconds 11.7-14.7 INR (BEAKER) (test daed=773) 4.4 <=5.9 RECOMMENDED COUMADIN/WARFARIN INR THERAPY RANGESSTANDARD DOSE: 2.0 - 3.0 Includes: PROPHYLAXIS forvenous thrombosis, systemic embolization; TREATMENT for venous thrombosis and/or pulmonary embolus.HIGH RISK: Target INR is 2.5-3.5 for patients with mechanical heart valves.LACTIC ACID, VENOUS, WHOLE [id number] 13:18:00 Test Item Value Reference Range Comments LACTATE BLOOD VENOUS (2) (BEAKER) (test 0.8 mmol/L 0.5-2.2 zvbd=3755) Effective 01/04/2016: Units/Reference Range ChangeNew: 0.5-2.2 mmol/L Previous: 5 -20 mg/dLPOCT-GLUCOSE [id number] 12:04:00 Test Item Value Reference Range Comments POC-GLUCOSE METER (BEAKER) 111 mg/dL 70-110 TESTED AT [facility] [address] [facility] (test snrd=8002) [facility] [address] CD4 T CELL [id number] 12:04:00 Test Item Value Reference Range Comments CD4/CD8 RATIO FC (BEAKER) (test yahx=0162) 0.76 0.70-3.23 HEPATITIS B SURFACE [id number] 11:32:00 Test Item Value Reference Range Comments HEPATITIS B SURFACE ANTIGEN (2) (BEAKER) (test Nonreactive Nonreactive ffrr=0282) VANCOMYCIN LEVEL, [id number] 11:10:00 Test Item Value Reference Range Comments VANCOMYCIN RANDOM (BEAKER) (test ghnr=365) 20.7 ug/mL Reference Range: No NormalsBASIC METABOLIC [id number] 09:19:00 Test Item Value Reference Range Comments SODIUM (BEAKER) (test 129 meq/L 136-145 vzug=068) POTASSIUM (BEAKER) (test 3.4 meq/L 3.5-5.1 qbyu=911) CHLORIDE (BEAKER) (test 93 meq/L 98-107 kdfq=431) CO2 (BEAKER) (test 26 meq/L 22-29 uzds=200) BLOOD UREA NITROGEN 46 mg/dL 7-21 (BEAKER) (test yjyk=201) CREATININE (BEAKER) (test 7.70 mg/dL 0.57-1.25 xlcv=928) GLUCOSE RANDOM (BEAKER) 129 mg/dL 70-105 (test uurt=947) CALCIUM (BEAKER) (test 8.5 mg/dL 8.4-10.2 biam=961) EGFR (BEAKER) (test 9 mL/min/1.73 sq m ESTIMATED GFR IS NOT edha=5897) ACCURATE CREATININE CLEARANCE IN PREDICTING GLOMERULAR FILTRATION RATE. ESTIMATED GFR IS NOT APPLICABLE FOR DIALYSIS PATIENTS. [id number] 09:16:00 Test Item Value Reference Range Comments MAGNESIUM (BEAKER) (test yhoy=143) 2.1 mg/dL 1.6-2.6 RAD, CHEST, 1 VIEW, NON [id number] 07:56:00Reason for exam:->pleural effusion seen on outside hospital imagingShould this be performed at the bedside ?->YesFINAL REPORT Chest one view compared to February 23 Discussion: Small effusions are similar. Replaced cardiac valve and atrial appendage clip noted. No pneumothorax. Unchanged cardiac pulmonary appearance. Signed: Rhea Colindreseport Verified Date/Time: 05/20/2018 07:56:50 Reading Location: [facility] Radiology Reading Room POCT-GLUCOSE [id number] 07:32:00 Test Item Value Reference Range Comments POC-GLUCOSE METER (BEAKER) 105 mg/dL 70-110 TESTED AT [facility] [address] [facility] (test vocg=9839) [facility] [address] CBC W/PLT COUNT & AUTO [id number] 07:01:00 Test Item Value Reference Range Comments WHITE BLOOD CELL COUNT (BEAKER) (test frxe=006) 9.1 K/ L 3.5-10.5 RED BLOOD CELL COUNT (BEAKER) (test gkri=344) 3.34 M/ L 4.63-6.08 HEMOGLOBIN (BEAKER) (test gofx=354) 9.8 GM/DL 13.7-17.5 HEMATOCRIT (BEAKER) (test qjqq=487) 30.9 % 40.1-51.0 MEAN CORPUSCULAR VOLUME (BEAKER) (test xqst=915) 92.5 fL 79.0-92.2 MEAN CORPUSCULAR HEMOGLOBIN (BEAKER) (test 29.3 pg 25.7-32.2 xert=142) MEAN CORPUSCULAR HEMOGLOBIN CONC (BEAKER) (test 31.7 GM/DL 32.3-36.5 iqok=051) RED CELL DISTRIBUTION WIDTH (BEAKER) (test 15.8 % 11.6-14.4 cxzt=074) PLATELET COUNT (BEAKER) (test fdfk=626) 173 K/CU MM 150-450 MEAN PLATELET VOLUME (BEAKER) (test docs=914) 9.2 fL 9.4-12.4 NUCLEATED RED BLOOD CELLS (BEAKER) (test 0 /100 WBC 0-0 kofk=275) NEUTROPHILS RELATIVE PERCENT (BEAKER) (test 78 % srdg=748) LYMPHOCYTES RELATIVE PERCENT (BEAKER) (test 9 % tzlx=987) MONOCYTES RELATIVE PERCENT (BEAKER) (test 11 % plhg=250) EOSINOPHILS RELATIVE PERCENT (BEAKER) (test 1 % lpvd=291) BASOPHILS RELATIVE PERCENT (BEAKER) (test 0 % umgp=791) NEUTROPHILS ABSOLUTE COUNT (BEAKER) (test 7.12 K/ L 1.78-5.38 blme=938) LYMPHOCYTES ABSOLUTE COUNT (BEAKER) (test 0.84 K/ L 1.32-3.57 oypl=257) MONOCYTES ABSOLUTE COUNT (BEAKER) (test 0.98 K/ L 0.30-0.82 wkjz=752) EOSINOPHILS ABSOLUTE COUNT (BEAKER) (test 0.07 K/ L 0.04-0.54 nykc=470) BASOPHILS ABSOLUTE COUNT (BEAKER) (test 0.03 K/ L 0.01-0.08 gntn=634) IMMATURE GRANULOCYTES-RELATIVE PERCENT (BEAKER) 1 % 0-1 (test erku=1353) VANCOMYCIN LEVEL, [id number] 22:39:00 Test Item Value Reference Range Comments VANCOMYCIN RANDOM (BEAKER) (test nwvb=400) 22.0 ug/mL Reference Range: No NormalsCOMPREHENSIVE METABOLIC [id number] 22:39:00 Test Item Value Reference Range Comments TOTAL PROTEIN (BEAKER) 7.3 gm/dL 6.0-8.3 (test yyvy=000) ALBUMIN (BEAKER) (test 3.0 g/dL 3.5-5.0 zpqf=3356) ALKALINE PHOSPHATASE 65 U/L 40-150 (BEAKER) (test oqir=596) BILIRUBIN TOTAL (BEAKER) 0.9 mg/dL 0.2-1.2 (test vkfd=022) SODIUM (BEAKER) (test 130 meq/L 136-145 llce=904) POTASSIUM (BEAKER) (test 3.5 meq/L 3.5-5.1 nbso=908) CHLORIDE (BEAKER) (test 94 meq/L 98-107 gtdg=393) CO2 (BEAKER) (test 24 meq/L 22-29 dtpo=252) BLOOD UREA NITROGEN 44 mg/dL 7-21 (BEAKER) (test fady=481) CREATININE (BEAKER) (test 7.35 mg/dL 0.57-1.25 piqn=177) GLUCOSE RANDOM (BEAKER) 144 mg/dL 70-105 (test erhu=245) CALCIUM (BEAKER) (test 8.6 mg/dL 8.4-10.2 yrey=367) AST (SGOT) (BEAKER) (test 30 U/L 5-34 dubm=246) ALT (SGPT) (BEAKER) (test 21 U/L 6-55 taoy=769) EGFR (BEAKER) (test 9 mL/min/1.73 sq m ESTIMATED GFR IS NOT lial=2013) ACCURATE CREATININE CLEARANCE IN PREDICTING GLOMERULAR FILTRATION RATE. ESTIMATED GFR IS NOT APPLICABLE FOR DIALYSIS PATIENTS. [id number] 22:38:00 Test Item Value Reference Range Comments PHOSPHORUS (BEAKER) (test lajv=853) 4.5 mg/dL 2.3-4.7 [id number] 22:38:00 Test Item Value Reference Range Comments MAGNESIUM (BEAKER) (test umbx=842) 2.0 mg/dL 1.6-2.6 [id number] 22:29:00 Test Item Value Reference Range Comments PARTIAL THROMBOPLASTIN TIME (BEAKER) (test 45.0 seconds 22.5-36.0 cqnl=577) PROTHROMBIN [id number] 22:28:00 Test Item Value Reference Range Comments PROTIME (BEAKER) (test phjd=045) 48.1 seconds 11.7-14.7 INR (BEAKER) (test wfhp=884) 5.2 <=5.9 RECOMMENDED COUMADIN/WARFARIN INR THERAPY RANGESSTANDARD DOSE: 2.0 - 3.0 Includes: PROPHYLAXIS forvenous thrombosis, systemic embolization; TREATMENT for venous thrombosis and/or pulmonary embolus.HIGH RISK: Target INR is 2.5-3.5 for patients with mechanical heart valves.POCT-GLUCOSE [id number] 21:38:00 Test Item Value Reference Range Comments POC-GLUCOSE METER (BEAKER) 105 mg/dL 70-110 TESTED AT [facility] [address] (test mozg=9052) [facility] [address] XR Ankle Complete 3+ Views [id number] 22:30:07Patient: CALEB LUGO Date/Time05/12/2018 22:24 CDTReason for [...] Signature): 05/12/2018 10:30 pmXR Chest 1 View [id number]- 09-10 09:48:17Patient: CALEB LUGO Date/Time05/12/2018 09:30 CDTReason [...] ( Electronic Signature): 05/12/2018 9:48 amBASIC METABOLIC [id number] 11:15: 00 Test Item Value Reference Range Comments SODIUM (BEAKER) (test 139 meq/L 136-145 nqrh=118) POTASSIUM (BEAKER) (test 3.5 meq/L 3.5-5.1 euak=338) CHLORIDE (BEAKER) (test 96 meq/L 98-107 bulv=259) CO2 (BEAKER) (test 29 meq/L 22-29 fbyf=452) BLOOD UREA NITROGEN 31 mg/dL 7-21 (BEAKER) (test qzoo=809) CREATININE (BEAKER) (test 6.31 mg/dL 0.57-1.25 vlwn=489) GLUCOSE RANDOM (BEAKER) 147 mg/dL 70-105 (test wpsn=205) CALCIUM (BEAKER) (test 9.7 mg/dL 8.4-10.2 gutg=133) EGFR (BEAKER) (test 11 mL/min/1.73 sq m ESTIMATED GFR IS NOT lceb=1403) ACCURATE CREATININE CLEARANCE IN PREDICTING GLOMERULAR FILTRATION RATE. ESTIMATED GFR IS NOT APPLICABLE FOR DIALYSIS PATIENTS. B-TYPE NATRIURETIC FACTOR (BNP)2018-03-19 11:13:00 Test Item Value Reference Range Comments B-TYPE NATRIURETIC PEPTIDE (BEAKER) (test 3030 pg/mL 0-100 xdky=653) BASIC METABOLIC [id number] 02:55:00 Test Item Value Reference Range Comments SODIUM (BEAKER) (test 139 meq/L 136-145 qrtv=867) POTASSIUM (BEAKER) (test 4.1 meq/L 3.5-5.1 widc=033) CHLORIDE (BEAKER) (test 97 meq/L 98-107 xvyw=816) CO2 (BEAKER) (test 32 meq/L 22-29 riwm=703) BLOOD UREA NITROGEN 34 mg/dL 7-21 (BEAKER) (test fcam=047) CREATININE (BEAKER) (test 5.68 mg/dL 0.57-1.25 xdjt=278) GLUCOSE RANDOM (BEAKER) 109 mg/dL 70-105 (test deox=362) CALCIUM (BEAKER) (test 9.3 mg/dL 8.4-10.2 ehzn=527) EGFR (BEAKER) (test 12 mL/min/1.73 sq m ESTIMATED GFR IS NOT ujfl=0239) ACCURATE CREATININE CLEARANCE IN PREDICTING GLOMERULAR FILTRATION RATE. ESTIMATED GFR IS NOT APPLICABLE FOR DIALYSIS PATIENTS. B-TYPE NATRIURETIC FACTOR (BNP)2018-02-24 02:31:00 Test Item Value Reference Range Comments B-TYPE NATRIURETIC PEPTIDE (BEAKER) (test 3676 pg/mL 0-100 ncfh=924) TROPONIN [id number] 02:30:00 Test Item Value Reference Range Comments TROPONIN I (BEAKER) (test tlbk=724) 0.14 ng/mL 0.00-0.03 Troponin I (TnI) levels [...] failure, acidosis, acute neurological disease, and persistent tachyarrhythmia.[id number] 02:21:00 Test Item Value Reference Range Comments MAGNESIUM (BEAKER) (test hvvi=897) 1.8 mg/dL 1.6-2.6 CBC W/PLT COUNT & AUTO [id number] 00:24:00 Test Item Value Reference Range Comments WHITE BLOOD CELL COUNT (BEAKER) (test gzil=474) 7.8 K/ L 3.5-10.5 RED BLOOD CELL COUNT (BEAKER) (test rzoo=465) 3.03 M/ L 4.63-6.08 HEMOGLOBIN (BEAKER) (test uxrl=165) 9.2 GM/DL 13.7-17.5 HEMATOCRIT (BEAKER) (test ebew=858) 30.1 % 40.1-51.0 MEAN CORPUSCULAR VOLUME (BEAKER) (test enky=074) 99.3 fL 79.0-92.2 MEAN CORPUSCULAR HEMOGLOBIN (BEAKER) (test 30.4 pg 25.7-32.2 gjlq=155) MEAN CORPUSCULAR HEMOGLOBIN CONC (BEAKER) (test 30.6 GM/DL 32.3-36.5 lyja=023) RED CELL DISTRIBUTION WIDTH (BEAKER) (test 18.5 % 11.6-14.4 mpxd=717) PLATELET COUNT (BEAKER) (test kioz=793) 83 K/CU MM 150-450 MEAN PLATELET VOLUME (BEAKER) (test exyw=359) 10.2 fL 9.4-12.4 NUCLEATED RED BLOOD CELLS (BEAKER) (test 0 /100 WBC 0-0 ufiw=812) NEUTROPHILS RELATIVE PERCENT (BEAKER) (test 63 % pykj=404) LYMPHOCYTES RELATIVE PERCENT (BEAKER) (test 21 % ebub=508) MONOCYTES RELATIVE PERCENT (BEAKER) (test 13 % cwbf=034) EOSINOPHILS RELATIVE PERCENT (BEAKER) (test 1 % zinz=949) BASOPHILS RELATIVE PERCENT (BEAKER) (test 1 % hbnw=415) NEUTROPHILS ABSOLUTE COUNT (BEAKER) (test 4.95 K/ L 1.78-5.38 wsxx=514) LYMPHOCYTES ABSOLUTE COUNT (BEAKER) (test 1.61 K/ L 1.32-3.57 nrgl=820) MONOCYTES ABSOLUTE COUNT (BEAKER) (test xvrh=497) 1.04 K/ L 0.30-0.82 EOSINOPHILS ABSOLUTE COUNT (BEAKER) (test 0.10 K/ L 0.04-0.54 qnqi=198) BASOPHILS ABSOLUTE COUNT (BEAKER) (test tdgy=953) 0.06 K/ L 0.01-0.08 IMMATURE GRANULOCYTES-RELATIVE PERCENT (BEAKER) 1 % 0-1 (test wuei=8685) [id number] 00:01:00 Test Item Value Reference Range Comments PROTIME (BEAKER) (test szdm=052) 14.4 seconds 11.7-14.7 INR (BEAKER) (test ifwm=097) 1.1 <=5.9 PARTIAL THROMBOPLASTIN TIME (BEAKER) (test 28.5 seconds 22.5-36.0 leqk=461) RECOMMENDED COUMADIN/WARFARIN INR THERAPY RANGESSTANDARD DOSE: 2.0 - 3.0 Includes: PROPHYLAXIS forvenous thrombosis, systemic embolization; TREATMENT for venous thrombosis and/or pulmonary embolus.HIGH RISK: Target INR is 2.5-3.5 for patients with mechanical heart valves.RAD, CHEST, 1 VIEW, NON [id number] 23:39:00Reason for exam:->chest painShould this be [...] Wan Verified Date/Time: 02/23/2018 23:39:58 Reading Location: [address] Reading Room Electronically signed by: JOSIAH WAN M.D. on 11:39 PMPOCT-GLUCOSE [id number] 19:47:00 Test Item Value Reference Range Comments POC-GLUCOSE METER (BEAKER) 94 mg/dL 70-110 TESTED AT [address] (test mbtq=1173) [place] [id number] POCT-GLUCOSE [id number] 17:07:00 Test Item Value Reference Range Comments POC-GLUCOSE METER (BEAKER) 176 mg/dL 70-110 TESTED AT [address] (test obar=2392) [place] [id number] POCT-GLUCOSE [id number] 12:31:00 Test Item Value Reference Range Comments POC-GLUCOSE METER (BEAKER) 84 mg/dL 70-110 TESTED AT [address] (test oyut=3577) [place] [address] [id number] 10:40:00 Test Item Value Reference Range Comments PARTIAL THROMBOPLASTIN TIME (BEAKER) (test 88.5 seconds 22.5-36.0 qgtt=046) OCCULT BLOOD, [id number] 09:36:00 Test Item Value Reference Range Comments FECAL OCCULT BLOOD (BEAKER) (test ggqz=683) Negative Negative POCT-GLUCOSE [id number] 08:51:00 Test Item Value Reference Range Comments POC-GLUCOSE METER (BEAKER) 223 mg/dL 70-110 TESTED AT [address] (test uxwn=2432) [place] [address] [id number] 04:14:00 Test Item Value Reference Range Comments PARTIAL THROMBOPLASTIN TIME (BEAKER) (test 80.3 seconds 22.5-36.0 momd=311) While on warfarin.PROTHROMBIN [id number] 04:13:00 Test Item Value Reference Range Comments PROTIME (BEAKER) (test siwd=314) 23.8 seconds 11.7-14.7 INR (BEAKER) (test kjsy=986) 2.1 <=5.9 RECOMMENDED COUMADIN/WARFARIN INR THERAPY RANGESSTANDARD DOSE: 2.0 - 3.0 Includes: PROPHYLAXIS forvenous thrombosis, systemic embolization; TREATMENT for venous thrombosis and/or pulmonary embolus.HIGH RISK: Target INR is 2.5-3.5 for patients with mechanical heart valves.While on warfarin.POCT-GLUCOSE [id number] 21:56:00 Test Item Value Reference Range Comments POC-GLUCOSE METER (BEAKER) 206 mg/dL 70-110 TESTED AT [address] (test eqgk=3542) [place] [address] [id number] 19:50:00 Test Item Value Reference Range Comments PARTIAL THROMBOPLASTIN TIME (BEAKER) (test 59.7 seconds 22.5-36.0 mlkq=579) POCT-GLUCOSE [id number] 17:00:00 Test Item Value Reference Range Comments POC-GLUCOSE METER (BEAKER) 183 mg/dL 70-110 TESTED AT [address] (test oeex=1049) [place] [address] [id number] 12:45:00 Test Item Value Reference Range Comments PARTIAL THROMBOPLASTIN TIME (BEAKER) (test 89.5 seconds 22.5-36.0 brjm=050) CBC W/PLT COUNT & AUTO [id number] 12:04:00 Test Item Value Reference Range Comments WHITE BLOOD CELL COUNT (BEAKER) (test gyqg=344) 4.8 K/ L 3.5-10.5 RED BLOOD CELL COUNT (BEAKER) (test bwig=504) 2.46 M/ L 4.63-6.08 HEMOGLOBIN (BEAKER) (test fvvv=391) 7.5 GM/DL 13.7-17.5 HEMATOCRIT (BEAKER) (test sail=766) 24.2 % 40.1-51.0 MEAN CORPUSCULAR VOLUME (BEAKER) (test rtux=009) 98.4 fL 79.0-92.2 MEAN CORPUSCULAR HEMOGLOBIN (BEAKER) (test 30.5 pg 25.7-32.2 uvne=214) MEAN CORPUSCULAR HEMOGLOBIN CONC (BEAKER) (test 31.0 GM/DL 32.3-36.5 xiog=199) RED CELL DISTRIBUTION WIDTH (BEAKER) (test 18.0 % 11.6-14.4 ezrb=179) PLATELET COUNT (BEAKER) (test hzkb=399) 90 K/CU MM 150-450 MEAN PLATELET VOLUME (BEAKER) (test ihck=984) 9.3 fL 9.4-12.4 NUCLEATED RED BLOOD CELLS (BEAKER) (test 0 /100 WBC 0-0 sqhz=354) POCT-GLUCOSE [id number] 11:54:00 Test Item Value Reference Range Comments POC-GLUCOSE METER (BEAKER) 124 mg/dL 70-110 TESTED AT [address] (test uwdy=5218) [place] [address] POCT-GLUCOSE [id number] 07:48:00 Test Item Value Reference Range Comments POC-GLUCOSE METER (BEAKER) 178 mg/dL 70-110 TESTED AT [address] (test tyqt=7595) [place] [address] BASIC METABOLIC [id number] 05:15:00 Test Item Value Reference Range Comments SODIUM (BEAKER) (test 133 meq/L 136-145 qnsi=522) POTASSIUM (BEAKER) (test 4.8 meq/L 3.5-5.1 srhd=104) CHLORIDE (BEAKER) (test 97 meq/L 98-107 tdjh=346) CO2 (BEAKER) (test 27 meq/L 22-29 ftep=372) BLOOD UREA NITROGEN 26 mg/dL 7-21 (BEAKER) (test bigs=432) CREATININE (BEAKER) (test 5.28 mg/dL 0.57-1.25 cqgr=704) GLUCOSE RANDOM (BEAKER) 131 mg/dL 70-105 (test quxr=238) CALCIUM (BEAKER) (test 8.5 mg/dL 8.4-10.2 eivo=612) EGFR (BEAKER) (test 14 mL/min/1.73 sq m ESTIMATED GFR IS NOT njbk=7658) ACCURATE CREATININE CLEARANCE IN PREDICTING GLOMERULAR FILTRATION RATE. ESTIMATED GFR IS NOT APPLICABLE FOR DIALYSIS PATIENTS. [id number] 04:51:00 Test Item Value Reference Range Comments MAGNESIUM (BEAKER) (test wvlm=005) 1.8 mg/dL 1.6-2.6 [id number] 04:36:00 Test Item Value Reference Range Comments PARTIAL THROMBOPLASTIN TIME (BEAKER) (test 91.9 seconds 22.5-36.0 msid=726) While on warfarin.PROTHROMBIN [id number] 04:34:00 Test Item Value Reference Range Comments PROTIME (BEAKER) (test cqzm=802) 21.6 seconds 11.7-14.7 INR (BEAKER) (test blxo=481) 1.9 <=5.9 RECOMMENDED COUMADIN/WARFARIN INR THERAPY RANGESSTANDARD DOSE: 2.0 - 3.0 Includes: PROPHYLAXIS forvenous thrombosis, systemic embolization; TREATMENT for venous thrombosis and/or pulmonary embolus.HIGH RISK: Target INR is 2.5-3.5 for patients with mechanical heart valves.While on warfarin.POCT-GLUCOSE [id number] 21:46:00 Test Item Value Reference Range Comments POC-GLUCOSE METER (BEAKER) 126 mg/dL 70-110 TESTED AT [address] (test hlkc=0187) [place] [address] [id number] 21:23:00 Test Item Value Reference Range Comments PARTIAL THROMBOPLASTIN TIME (BEAKER) (test 84.1 seconds 22.5-36.0 ywkp=718) POCT-GLUCOSE [id number] 16:57:00 Test Item Value Reference Range Comments POC-GLUCOSE METER (BEAKER) 156 mg/dL 70-110 TESTED AT [address] (test cmdy=5126) [place] [address] [id number] 14:11:00 Test Item Value Reference Range Comments PARTIAL THROMBOPLASTIN TIME (BEAKER) (test 96.5 seconds 22.5-36.0 hcrg=998) POCT-GLUCOSE [id number] 08:24:00 Test Item Value Reference Range Comments POC-GLUCOSE METER (BEAKER) 169 mg/dL 70-110 TESTED AT [address] (test hmpj=3737) [place] [address] POCT-GLUCOSE [id number] 06:49:00 Test Item Value Reference Range Comments POC-GLUCOSE METER (BEAKER) 172 mg/dL 70-110 TESTED AT [address] (test mvsv=8063) [place] [address] [id number] 04:59:00 Test Item Value Reference Range Comments PARTIAL THROMBOPLASTIN TIME (BEAKER) (test 64.7 seconds 22.5-36.0 njrs=613) While on warfarin.PROTHROMBIN [id number] 04:57:00 Test Item Value Reference Range Comments PROTIME (BEAKER) (test dxwa=242) 17.5 seconds 11.7-14.7 INR (BEAKER) (test vily=975) 1.4 <=5.9 RECOMMENDED COUMADIN/WARFARIN INR THERAPY RANGESSTANDARD DOSE: 2.0 - 3.0 Includes: PROPHYLAXIS forvenous thrombosis, systemic embolization; TREATMENT for venous thrombosis and/or pulmonary embolus.HIGH RISK: Target INR is 2.5-3.5 for patients with mechanical heart valves.While on warfarin.[id number] 21:55 :00 Test Item Value Reference Range Comments PARTIAL THROMBOPLASTIN TIME (BEAKER) (test 68.8 seconds 22.5-36.0 rfhu=923) [id number] 13:54:00 Test Item Value Reference Range Comments PARTIAL THROMBOPLASTIN TIME (BEAKER) (test 51.7 seconds 22.5-36.0 ggow=372) POCT-GLUCOSE [id number] 11:56:00 Test Item Value Reference Range Comments POC-GLUCOSE METER (BEAKER) 101 mg/dL 70-110 TESTED AT [address] (test hqol=1196) [place] [id number] POCT-GLUCOSE [id number] 07:58:00 Test Item Value Reference Range Comments POC-GLUCOSE METER (BEAKER) 111 mg/dL 70-110 TESTED AT [address] (test ctdr=1882) [place] [id number] BASIC METABOLIC [id number] 05:35:00 Test Item Value Reference Range Comments SODIUM (BEAKER) (test 132 meq/L 136-145 wxxq=705) POTASSIUM (BEAKER) (test 3.9 meq/L 3.5-5.1 wyfd=799) CHLORIDE (BEAKER) (test 95 meq/L 98-107 gspk=866) CO2 (BEAKER) (test 26 meq/L 22-29 gfiy=536) BLOOD UREA NITROGEN 29 mg/dL 7-21 (BEAKER) (test vkmw=810) CREATININE (BEAKER) (test 5.57 mg/dL 0.57-1.25 ueam=136) GLUCOSE RANDOM (BEAKER) 148 mg/dL 70-105 (test wdzw=340) CALCIUM (BEAKER) (test 8.2 mg/dL 8.4-10.2 tcyp=503) EGFR (BEAKER) (test 13 mL/min/1.73 sq m ESTIMATED GFR IS NOT tbht=5740) ACCURATE CREATININE CLEARANCE IN PREDICTING GLOMERULAR FILTRATION RATE. ESTIMATED GFR IS NOT APPLICABLE FOR DIALYSIS PATIENTS. [id number] 05:34:00 Test Item Value Reference Range Comments PHOSPHORUS (BEAKER) (test krii=106) 4.2 mg/dL 2.3-4.7 [id number] 05:34:00 Test Item Value Reference Range Comments MAGNESIUM (BEAKER) (test hxrz=314) 1.7 mg/dL 1.6-2.6 PROTHROMBIN [id number] 05:24:00 Test Item Value Reference Range Comments PROTIME (BEAKER) (test qdxi=458) 18.8 seconds 11.7-14.7 INR (BEAKER) (test comb=643) 1.6 <=5.9 RECOMMENDED COUMADIN/WARFARIN INR THERAPY RANGESSTANDARD DOSE: 2.0 - 3.0 Includes: PROPHYLAXIS forvenous thrombosis, systemic embolization; TREATMENT for venous thrombosis and/or pulmonary embolus.HIGH RISK: Target INR is 2.5-3.5 for patients with mechanical heart valves.[id number] 05:05:00 Test Item Value Reference Range Comments PARTIAL THROMBOPLASTIN TIME (BEAKER) (test 96.6 seconds 22.5-36.0 wbdp=096) CBC W/PLT COUNT & AUTO [id number] 04:54:00 Test Item Value Reference Range Comments WHITE BLOOD CELL COUNT (BEAKER) (test jynj=571) 5.5 K/ L 3.5-10.5 RED BLOOD CELL COUNT (BEAKER) (test uljz=841) 2.40 M/ L 4.63-6.08 HEMOGLOBIN (BEAKER) (test vmpt=273) 7.3 GM/DL 13.7-17.5 HEMATOCRIT (BEAKER) (test xoqq=377) 23.3 % 40.1-51.0 MEAN CORPUSCULAR VOLUME (BEAKER) (test peuc=531) 97.1 fL 79.0-92.2 MEAN CORPUSCULAR HEMOGLOBIN (BEAKER) (test 30.4 pg 25.7-32.2 eyxu=342) MEAN CORPUSCULAR HEMOGLOBIN CONC (BEAKER) (test 31.3 GM/DL 32.3-36.5 kida=489) RED CELL DISTRIBUTION WIDTH (BEAKER) (test 18.9 % 11.6-14.4 lzth=138) PLATELET COUNT (BEAKER) (test zufm=150) 87 K/CU MM 150-450 MEAN PLATELET VOLUME (BEAKER) (test xujd=232) 9.5 fL 9.4-12.4 NUCLEATED RED BLOOD CELLS (BEAKER) (test 0 /100 WBC 0-0 arwc=151) NEUTROPHILS RELATIVE PERCENT (BEAKER) (test 69 % zphr=036) LYMPHOCYTES RELATIVE PERCENT (BEAKER) (test 18 % mhtj=837) MONOCYTES RELATIVE PERCENT (BEAKER) (test 11 % pdrx=921) EOSINOPHILS RELATIVE PERCENT (BEAKER) (test 1 % lmnv=538) BASOPHILS RELATIVE PERCENT (BEAKER) (test 0 % tmdr=422) NEUTROPHILS ABSOLUTE COUNT (BEAKER) (test 3.77 K/ L 1.78-5.38 sjnj=867) LYMPHOCYTES ABSOLUTE COUNT (BEAKER) (test 0.97 K/ L 1.32-3.57 tujf=692) MONOCYTES ABSOLUTE COUNT (BEAKER) (test vmkm=497) 0.62 K/ L 0.30-0.82 EOSINOPHILS ABSOLUTE COUNT (BEAKER) (test 0.07 K/ L 0.04-0.54 yirh=073) BASOPHILS ABSOLUTE COUNT (BEAKER) (test uukb=400) 0.02 K/ L 0.01-0.08 IMMATURE GRANULOCYTES-RELATIVE PERCENT (BEAKER) 1 % 0-1 (test szuq=0191) OCCULT BLOOD, [id number] 22:44:00 Test Item Value Reference Range Comments FECAL OCCULT BLOOD (BEAKER) (test crkj=345) Positive Negative [id number] 21:14:00 Test Item Value Reference Range Comments PARTIAL THROMBOPLASTIN TIME (BEAKER) (test 69.1 seconds 22.5-36.0 ouuo=759) POCT-GLUCOSE [id number] 20:49:00 Test Item Value Reference Range Comments POC-GLUCOSE METER (BEAKER) 160 mg/dL 70-110 TESTED AT [address] (test etyo=2392) [place] [id number] POCT-GLUCOSE [id number] 17:59:00 Test Item Value Reference Range Comments POC-GLUCOSE METER (BEAKER) 128 mg/dL 70-110 TESTED AT [address] (test nnwc=8049) [place] [address] POCT-GLUCOSE [id number] 13:31:00 Test Item Value Reference Range Comments POC-GLUCOSE METER (BEAKER) 70 mg/dL 70-110 TESTED AT [address] (test klnz=7237) [place] [address] [id number] 13:16:00 Test Item Value Reference Range Comments PARTIAL THROMBOPLASTIN TIME (BEAKER) (test 78.3 seconds 22.5-36.0 qbcq=792) POCT-GLUCOSE [id number] 12:47:00 Test Item Value Reference Range Comments POC-GLUCOSE METER (BEAKER) 49 mg/dL 70-110 TESTED AT [address] (test eqvt=3624) [place] [address] POCT-GLUCOSE [id number] 09:05:00 Test Item Value Reference Range Comments POC-GLUCOSE METER (BEAKER) 306 mg/dL 70-110 TESTED AT [address] (test rase=8309) [place] [address] OCCULT BLOOD, [id number] 06:52:00 Test Item Value Reference Range Comments FECAL OCCULT BLOOD (BEAKER) (test lwnh=895) Positive Negative [id number] 05:42:00 Test Item Value Reference Range Comments PARTIAL THROMBOPLASTIN TIME (BEAKER) (test 70.5 seconds 22.5-36.0 lqyv=761) IRON, TIBC, % SAT. (WITHOUT FERRITIN)[id number] 05:42:00 Test Item Value Reference Range Comments IRON (BEAKER) (test grfj=846) 58 ug/dL 40-160 TOTAL IRON BINDING CAPACITY (BEAKER) (test 195 ug/dL 250-450 uigh=597) IRON % SATURATION (2) (BEAKER) (test nnxn=4079) 30 % 20-55 BASIC METABOLIC [id number] 03:53:00 Test Item Value Reference Range Comments SODIUM (BEAKER) (test 134 meq/L 136-145 nnlw=994) POTASSIUM (BEAKER) (test 4.1 meq/L 3.5-5.1 wtas=813) CHLORIDE (BEAKER) (test 98 meq/L 98-107 inpq=864) CO2 (BEAKER) (test 27 meq/L 22-29 pqyk=836) BLOOD UREA NITROGEN 16 mg/dL 7-21 (BEAKER) (test fcfe=443) CREATININE (BEAKER) (test 3.58 mg/dL 0.57-1.25 dzll=749) GLUCOSE RANDOM (BEAKER) 103 mg/dL 70-105 (test nuad=085) CALCIUM (BEAKER) (test 8.3 mg/dL 8.4-10.2 ttmm=792) EGFR (BEAKER) (test 21 mL/min/1.73 sq m ESTIMATED GFR IS NOT iwje=0277) ACCURATE CREATININE CLEARANCE IN PREDICTING GLOMERULAR FILTRATION RATE. ESTIMATED GFR IS NOT APPLICABLE FOR DIALYSIS PATIENTS. [id number] 03:51:00 Test Item Value Reference Range Comments PHOSPHORUS (BEAKER) (test armd=473) 3.2 mg/dL 2.3-4.7 [id number] 03:51:00 Test Item Value Reference Range Comments PARTIAL THROMBOPLASTIN TIME (BEAKER) (test 122.0 seconds 22.5-36.0 zeue=024) While on warfarin.PROTHROMBIN [id number] 03:48:00 Test Item Value Reference Range Comments PROTIME (BEAKER) (test ncru=749) 16.3 seconds 11.7-14.7 INR (BEAKER) (test ciaw=522) 1.3 <=5.9 RECOMMENDED COUMADIN/WARFARIN INR THERAPY RANGESSTANDARD DOSE: 2.0 - 3.0 Includes: PROPHYLAXIS forvenous thrombosis, systemic embolization; TREATMENT for venous thrombosis and/or pulmonary embolus.HIGH RISK: Target INR is 2.5-3.5 for patients with mechanical heart valves.While on warfarin.[id number] 03:44:00 Test Item Value Reference Range Comments MAGNESIUM (BEAKER) (test ocqi=322) 1.7 mg/dL 1.6-2.6 CBC W/PLT COUNT & AUTO [id number] 03:38:00 Test Item Value Reference Range Comments WHITE BLOOD CELL COUNT (BEAKER) (test ynme=145) 6.7 K/ L 3.5-10.5 RED BLOOD CELL COUNT (BEAKER) (test fwdp=324) 2.37 M/ L 4.63-6.08 HEMOGLOBIN (BEAKER) (test efiq=989) 7.4 GM/DL 13.7-17.5 HEMATOCRIT (BEAKER) (test ejsy=597) 23.0 % 40.1-51.0 MEAN CORPUSCULAR VOLUME (BEAKER) (test aoay=578) 97.0 fL 79.0-92.2 MEAN CORPUSCULAR HEMOGLOBIN (BEAKER) (test 31.2 pg 25.7-32.2 tzyo=765) MEAN CORPUSCULAR HEMOGLOBIN CONC (BEAKER) (test 32.2 GM/DL 32.3-36.5 gbzb=288) RED CELL DISTRIBUTION WIDTH (BEAKER) (test 19.9 % 11.6-14.4 xawj=258) PLATELET COUNT (BEAKER) (test gyuy=729) 80 K/CU MM 150-450 MEAN PLATELET VOLUME (BEAKER) (test eqeu=407) 9.3 fL 9.4-12.4 NUCLEATED RED BLOOD CELLS (BEAKER) (test 0 /100 WBC 0-0 qics=618) NEUTROPHILS RELATIVE PERCENT (BEAKER) (test 81 % rqjk=986) LYMPHOCYTES RELATIVE PERCENT (BEAKER) (test 10 % wxhq=453) MONOCYTES RELATIVE PERCENT (BEAKER) (test 8 % whui=316) EOSINOPHILS RELATIVE PERCENT (BEAKER) (test 0 % bygi=798) BASOPHILS RELATIVE PERCENT (BEAKER) (test 0 % iyrz=943) NEUTROPHILS ABSOLUTE COUNT (BEAKER) (test 5.39 K/ L 1.78-5.38 ivvd=727) LYMPHOCYTES ABSOLUTE COUNT (BEAKER) (test 0.64 K/ L 1.32-3.57 funx=197) MONOCYTES ABSOLUTE COUNT (BEAKER) (test tflg=298) 0.55 K/ L 0.30-0.82 EOSINOPHILS ABSOLUTE COUNT (BEAKER) (test 0.02 K/ L 0.04-0.54 zvbj=212) BASOPHILS ABSOLUTE COUNT (BEAKER) (test dijs=023) 0.02 K/ L 0.01-0.08 IMMATURE GRANULOCYTES-RELATIVE PERCENT (BEAKER) 1 % 0-1 (test poxz=2251) POCT-GLUCOSE [id number] 23:35:00 Test Item Value Reference Range Comments POC-GLUCOSE METER (BEAKER) 149 mg/dL 70-110 TESTED AT [address] (test iooj=1345) [place] [address] [id number] 20:08:00 Test Item Value Reference Range Comments PARTIAL THROMBOPLASTIN TIME (BEAKER) (test 55.6 seconds 22.5-36.0 yztp=779) [id number] 15:10:00 Test Item Value Reference Range Comments PARTIAL THROMBOPLASTIN TIME (BEAKER) (test 81.4 seconds 22.5-36.0 xjop=599) POCT-GLUCOSE [id number] 11:58:00 Test Item Value Reference Range Comments POC-GLUCOSE METER (BEAKER) 124 mg/dL 70-110 TESTED AT [address] (test xuco=6748) [place] [address] RAD, CHEST, 1 VIEW, NON [id number] 08:59:00Reason for exam:->s/p mvrShould this be performed at the bedside?->YesFINAL REPORT Chest one view compared to January 24 Discussion: Left IJ line, atrial appendage clip, cardiac valve replacement noted. Mild interstitial congestion. No gross effusion or pneumothorax. IMPRESSIONS: No significant change Signed: Rhea Colindres Verified Date/Time:01/29/2018 08:59:39 Reading Location: [facility] Radiology Reading Room POCT-GLUCOSE [id number] 07:41:00 Test Item Value Reference Range Comments POC-GLUCOSE METER (BEAKER) 113 mg/dL 70-110 TESTED AT [address] (test dejx=8447) [place] [address] [id number] 07:23:00 Test Item Value Reference Range Comments PARTIAL THROMBOPLASTIN TIME (BEAKER) (test 89.8 seconds 22.5-36.0 edim=858) BASIC METABOLIC [id number] 06:05:00 Test Item Value Reference Range Comments SODIUM (BEAKER) (test 134 meq/L 136-145 wwgj=094) POTASSIUM (BEAKER) (test 3.9 meq/L 3.5-5.1 hzdl=431) CHLORIDE (BEAKER) (test 96 meq/L 98-107 jskk=779) CO2 (BEAKER) (test 28 meq/L 22-29 wthh=134) BLOOD UREA NITROGEN 33 mg/dL 7-21 (BEAKER) (test jhsx=575) CREATININE (BEAKER) (test 6.43 mg/dL 0.57-1.25 qnas=901) GLUCOSE RANDOM (BEAKER) 85 mg/dL 70-105 (test pada=545) CALCIUM (BEAKER) (test 8.4 mg/dL 8.4-10.2 gcfj=887) EGFR (BEAKER) (test 11 mL/min/1.73 sq m ESTIMATED GFR IS NOT ziis=8538) ACCURATE CREATININE CLEARANCE IN PREDICTING GLOMERULAR FILTRATION RATE. ESTIMATED GFR IS NOT APPLICABLE FOR DIALYSIS PATIENTS. PROTHROMBIN [id number] 05:59:00 Test Item Value Reference Range Comments PROTIME (BEAKER) (test fylo=364) 17.0 seconds 11.7-14.7 INR (BEAKER) (test fqts=791) 1.4 <=5.9 RECOMMENDED COUMADIN/WARFARIN INR THERAPY RANGESSTANDARD DOSE: 2.0 - 3.0 Includes: PROPHYLAXIS forvenous thrombosis, systemic embolization; TREATMENT for venous thrombosis and/or pulmonary embolus.HIGH RISK: Target INR is 2.5-3.5 for patients with mechanical heart valves.While on warfarin.[id number] 05:56:00 Test Item Value Reference Range Comments PHOSPHORUS (BEAKER) (test qzxj=384) 5.3 mg/dL 2.3-4.7 [id number] 05:56:00 Test Item Value Reference Range Comments MAGNESIUM (BEAKER) (test wapy=860) 1.9 mg/dL 1.6-2.6 CBC W/PLT COUNT & AUTO [id number] 05:38:00 Test Item Value Reference Range Comments WHITE BLOOD CELL COUNT (BEAKER) (test kgnj=123) 6.7 K/ L 3.5-10.5 RED BLOOD CELL COUNT (BEAKER) (test bhzq=914) 2.40 M/ L 4.63-6.08 HEMOGLOBIN (BEAKER) (test hewo=962) 7.4 GM/DL 13.7-17.5 HEMATOCRIT (BEAKER) (test hiwz=925) 23.6 % 40.1-51.0 MEAN CORPUSCULAR VOLUME (BEAKER) (test gpga=318) 98.3 fL 79.0-92.2 MEAN CORPUSCULAR HEMOGLOBIN (BEAKER) (test 30.8 pg 25.7-32.2 wydw=827) MEAN CORPUSCULAR HEMOGLOBIN CONC (BEAKER) (test 31.4 GM/DL 32.3-36.5 cjpg=984) RED CELL DISTRIBUTION WIDTH (BEAKER) (test 20.1 % 11.6-14.4 wltd=689) PLATELET COUNT (BEAKER) (test fvvx=699) 106 K/CU MM 150-450 MEAN PLATELET VOLUME (BEAKER) (test ifqo=650) 9.9 fL 9.4-12.4 NUCLEATED RED BLOOD CELLS (BEAKER) (test 0 /100 WBC 0-0 isng=025) NEUTROPHILS RELATIVE PERCENT (BEAKER) (test 77 % hmqr=875) LYMPHOCYTES RELATIVE PERCENT (BEAKER) (test 14 % ptog=262) MONOCYTES RELATIVE PERCENT (BEAKER) (test 7 % enck=242) EOSINOPHILS RELATIVE PERCENT (BEAKER) (test 1 % vtwg=827) BASOPHILS RELATIVE PERCENT (BEAKER) (test 0 % vkhx=232) NEUTROPHILS ABSOLUTE COUNT (BEAKER) (test 5.17 K/ L 1.78-5.38 qtna=282) LYMPHOCYTES ABSOLUTE COUNT (BEAKER) (test 0.91 K/ L 1.32-3.57 htkd=678) MONOCYTES ABSOLUTE COUNT (BEAKER) (test 0.50 K/ L 0.30-0.82 ydee=787) EOSINOPHILS ABSOLUTE COUNT (BEAKER) (test 0.06 K/ L 0.04-0.54 qixd=420) BASOPHILS ABSOLUTE COUNT (BEAKER) (test 0.01 K/ L 0.01-0.08 bqzl=934) IMMATURE GRANULOCYTES-RELATIVE PERCENT (BEAKER) 1 % 0-1 (test cexd=5208) [id number] 01:07:00 Test Item Value Reference Range Comments PARTIAL THROMBOPLASTIN TIME (BEAKER) (test 63.5 seconds 22.5-36.0 fgut=515) [id number] 18:24:00 Test Item Value Reference Range Comments PARTIAL THROMBOPLASTIN TIME (BEAKER) (test 56.6 seconds 22.5-36.0 wkgk=588) POCT-GLUCOSE [id number] 18:14:00 Test Item Value Reference Range Comments POC-GLUCOSE METER (BEAKER) 101 mg/dL 70-110 TESTED AT [address] (test fqop=1975) [place] [address] [id number] 13:57:00 Test Item Value Reference Range Comments PARTIAL THROMBOPLASTIN TIME (BEAKER) (test 122.3 seconds 22.5-36.0 jjrw=728) POCT-GLUCOSE [id number] 13:08:00 Test Item Value Reference Range Comments POC-GLUCOSE METER (BEAKER) 105 mg/dL 70-110 TESTED AT [address] (test lfbz=5550) [place] [address] BASIC METABOLIC [id number] 04:31:00 Test Item Value Reference Range Comments SODIUM (BEAKER) (test 136 meq/L 136-145 hdlx=333) POTASSIUM (BEAKER) (test 3.7 meq/L 3.5-5.1 fowt=126) CHLORIDE (BEAKER) (test 98 meq/L 98-107 ywhl=830) CO2 (BEAKER) (test 27 meq/L 22-29 jgmu=013) BLOOD UREA NITROGEN 23 mg/dL 7-21 (BEAKER) (test pkao=415) CREATININE (BEAKER) (test 4.45 mg/dL 0.57-1.25 xyls=699) GLUCOSE RANDOM (BEAKER) 92 mg/dL 70-105 (test ciok=098) CALCIUM (BEAKER) (test 8.2 mg/dL 8.4-10.2 ulez=297) EGFR (BEAKER) (test 16 mL/min/1.73 sq m ESTIMATED GFR IS NOT pvyp=7569) ACCURATE CREATININE CLEARANCE IN PREDICTING GLOMERULAR FILTRATION RATE. ESTIMATED GFR IS NOT APPLICABLE FOR DIALYSIS PATIENTS. [id number] 04:28:00 Test Item Value Reference Range Comments PHOSPHORUS (BEAKER) (test bujf=898) 3.9 mg/dL 2.3-4.7 [id number] 04:28:00 Test Item Value Reference Range Comments MAGNESIUM (BEAKER) (test vyie=609) 1.7 mg/dL 1.6-2.6 HEPATIC FUNCTION [id number] 04:28:00 Test Item Value Reference Range Comments TOTAL PROTEIN (BEAKER) (test ktfy=179) 5.1 gm/dL 6.0-8.3 ALBUMIN (BEAKER) (test yinp=7352) 2.3 g/dL 3.5-5.0 BILIRUBIN TOTAL (BEAKER) (test ppyw=079) 2.1 mg/dL 0.2-1.2 BILIRUBIN DIRECT (BEAKER) (test jdwy=228) 1.7 mg/dL 0.1-0.5 ALKALINE PHOSPHATASE (BEAKER) (test prlg=566) 65 U/L 40-150 AST (SGOT) (BEAKER) (test ileu=578) 31 U/L 5-34 ALT (SGPT) (BEAKER) (test ickf=209) 33 U/L 6-55 [id number] 04:20:00 Test Item Value Reference Range Comments PARTIAL THROMBOPLASTIN TIME (BEAKER) (test 106.2 seconds 22.5-36.0 koij=969) While on warfarin.PROTHROMBIN [id number] 04:15:00 Test Item Value Reference Range Comments PROTIME (BEAKER) (test tcvp=391) 18.4 seconds 11.7-14.7 INR (BEAKER) (test jtzf=229) 1.5 <=5.9 RECOMMENDED COUMADIN/WARFARIN INR THERAPY RANGESSTANDARD DOSE: 2.0 - 3.0 Includes: PROPHYLAXIS forvenous thrombosis, systemic embolization; TREATMENT for venous thrombosis and/or pulmonary embolus.HIGH RISK: Target INR is 2.5-3.5 for patients with mechanical heart valves.While on warfarin.CBC W/PLT COUNT &amp ; AUTO [id number] 04:05:00 Test Item Value Reference Range Comments WHITE BLOOD CELL COUNT (BEAKER) (test tlvu=451) 8.0 K/ L 3.5-10.5 RED BLOOD CELL COUNT (BEAKER) (test fmqc=201) 2.27 M/ L 4.63-6.08 HEMOGLOBIN (BEAKER) (test sxul=773) 7.1 GM/DL 13.7-17.5 HEMATOCRIT (BEAKER) (test lgdh=052) 22.1 % 40.1-51.0 MEAN CORPUSCULAR VOLUME (BEAKER) (test pwou=003) 97.4 fL 79.0-92.2 MEAN CORPUSCULAR HEMOGLOBIN (BEAKER) (test 31.3 pg 25.7-32.2 jgpr=704) MEAN CORPUSCULAR HEMOGLOBIN CONC (BEAKER) (test 32.1 GM/DL 32.3-36.5 zpwb=583) RED CELL DISTRIBUTION WIDTH (BEAKER) (test 20.5 % 11.6-14.4 dbiy=739) PLATELET COUNT (BEAKER) (test dyys=565) 96 K/CU MM 150-450 MEAN PLATELET VOLUME (BEAKER) (test fcou=862) 10.1 fL 9.4-12.4 NUCLEATED RED BLOOD CELLS (BEAKER) (test 0 /100 WBC 0-0 sapo=249) NEUTROPHILS RELATIVE PERCENT (BEAKER) (test 78 % wyaz=774) LYMPHOCYTES RELATIVE PERCENT (BEAKER) (test 12 % bvuq=170) MONOCYTES RELATIVE PERCENT (BEAKER) (test 8 % iohb=175) EOSINOPHILS RELATIVE PERCENT (BEAKER) (test 1 % vbwp=999) BASOPHILS RELATIVE PERCENT (BEAKER) (test 0 % rzrc=888) NEUTROPHILS ABSOLUTE COUNT (BEAKER) (test 6.25 K/ L 1.78-5.38 ttqh=252) LYMPHOCYTES ABSOLUTE COUNT (BEAKER) (test 0.96 K/ L 1.32-3.57 dlna=691) MONOCYTES ABSOLUTE COUNT (BEAKER) (test tmoh=932) 0.60 K/ L 0.30-0.82 EOSINOPHILS ABSOLUTE COUNT (BEAKER) (test 0.04 K/ L 0.04-0.54 igqr=856) BASOPHILS ABSOLUTE COUNT (BEAKER) (test iixz=308) 0.02 K/ L 0.01-0.08 IMMATURE GRANULOCYTES-RELATIVE PERCENT (BEAKER) 2 % 0-1 (test ryjv=5765) POCT-GLUCOSE [id number] 00:29:00 Test Item Value Reference Range Comments POC-GLUCOSE METER (BEAKER) 119 mg/dL 70-110 TESTED AT [facility] [address] [facility] (test xupy=0880) [facility] [address] [id number] 00:24:00 Test Item Value Reference Range Comments PARTIAL THROMBOPLASTIN TIME (BEAKER) (test 72.4 seconds 22.5-36.0 pknq=960) POCT-GLUCOSE [id number] 18:33:00 Test Item Value Reference Range Comments POC-GLUCOSE METER (BEAKER) 158 mg/dL 70-110 TESTED AT [address] (test epfa=9698) [facility] [address] [id number] 18:22:00 Test Item Value Reference Range Comments PARTIAL THROMBOPLASTIN TIME (BEAKER) (test 78.6 seconds 22.5-36.0 llbe=817) POCT-GLUCOSE [id number] 12:20:00 Test Item Value Reference Range Comments POC-GLUCOSE METER (BEAKER) 110 mg/dL 70-110 TESTED AT [address] (test otxn=0323) [facility] [address] [id number] 12:04:00 Test Item Value Reference Range Comments PARTIAL THROMBOPLASTIN TIME (BEAKER) (test 98.0 seconds 22.5-36.0 hcqe=928) [id number] 04:11:00 Test Item Value Reference Range Comments PROTIME (BEAKER) (test wzgz=005) 15.2 seconds 11.7-14.7 INR (BEAKER) (test qamx=952) 1.2 <=5.9 PARTIAL THROMBOPLASTIN TIME (BEAKER) (test 67.9 seconds 22.5-36.0 luwv=047) RECOMMENDED COUMADIN/WARFARIN INR THERAPY RANGESSTANDARD DOSE: 2.0 - 3.0 Includes: PROPHYLAXIS forvenous thrombosis, systemic embolization; TREATMENT for venous thrombosis and/or pulmonary embolus.HIGH RISK: Target INR is 2.5-3.5 for patients with mechanical heart valves.While on warfarin.While on warfarin.PROTHROMBIN [id number] 04:10:00 Test Item Value Reference Range Comments PROTIME (BEAKER) (test akeo=912) 15.2 seconds 11.7-14.7 INR (BEAKER) (test xhnn=442) 1.2 <=5.9 RECOMMENDED COUMADIN/WARFARIN INR THERAPY RANGESSTANDARD DOSE: 2.0 - 3.0 Includes: PROPHYLAXIS forvenous thrombosis, systemic embolization; TREATMENT for venous thrombosis and/or pulmonary embolus.HIGH RISK: Target INR is 2.5-3.5 for patients with mechanical heart valves.BASIC METABOLIC [id number] 03:53: 00 Test Item Value Reference Range Comments SODIUM (BEAKER) (test 134 meq/L 136-145 aidk=309) POTASSIUM (BEAKER) (test 3.9 meq/L 3.5-5.1 vhaq=277) CHLORIDE (BEAKER) (test 96 meq/L 98-107 juyz=613) CO2 (BEAKER) (test 23 meq/L 22-29 ommm=864) BLOOD UREA NITROGEN 52 mg/dL 7-21 (BEAKER) (test omyh=997) CREATININE (BEAKER) (test 6.75 mg/dL 0.57-1.25 fbew=361) GLUCOSE RANDOM (BEAKER) 107 mg/dL 70-105 (test kdux=224) CALCIUM (BEAKER) (test 8.7 mg/dL 8.4-10.2 gohd=623) EGFR (BEAKER) (test 10 mL/min/1.73 sq m ESTIMATED GFR IS NOT dfji=4457) ACCURATE CREATININE CLEARANCE IN PREDICTING GLOMERULAR FILTRATION RATE. ESTIMATED GFR IS NOT APPLICABLE FOR DIALYSIS PATIENTS. CBC W/PLT COUNT & AUTO [id number] 03:50:00 Test Item Value Reference Range Comments WHITE BLOOD CELL COUNT (BEAKER) (test xrvk=899) 10.5 K/ L 3.5-10.5 RED BLOOD CELL COUNT (BEAKER) (test sero=369) 2.55 M/ L 4.63-6.08 HEMOGLOBIN (BEAKER) (test pdjk=622) 8.0 GM/DL 13.7-17.5 HEMATOCRIT (BEAKER) (test bbht=181) 24.6 % 40.1-51.0 MEAN CORPUSCULAR VOLUME (BEAKER) (test yuys=867) 96.5 fL 79.0-92.2 MEAN CORPUSCULAR HEMOGLOBIN (BEAKER) (test 31.4 pg 25.7-32.2 npro=988) MEAN CORPUSCULAR HEMOGLOBIN CONC (BEAKER) (test 32.5 GM/DL 32.3-36.5 mwwt=168) RED CELL DISTRIBUTION WIDTH (BEAKER) (test 19.8 % 11.6-14.4 zmec=196) PLATELET COUNT (BEAKER) (test zpnx=630) 141 K/CU MM 150-450 MEAN PLATELET VOLUME (BEAKER) (test mvat=769) 9.6 fL 9.4-12.4 NUCLEATED RED BLOOD CELLS (BEAKER) (test 0 /100 WBC 0-0 npei=188) NEUTROPHILS RELATIVE PERCENT (BEAKER) (test 80 % lxak=365) LYMPHOCYTES RELATIVE PERCENT (BEAKER) (test 11 % mevu=511) MONOCYTES RELATIVE PERCENT (BEAKER) (test 7 % dxni=457) EOSINOPHILS RELATIVE PERCENT (BEAKER) (test 1 % nmvs=361) BASOPHILS RELATIVE PERCENT (BEAKER) (test 0 % cxyr=242) NEUTROPHILS ABSOLUTE COUNT (BEAKER) (test 8.37 K/ L 1.78-5.38 tfbt=787) LYMPHOCYTES ABSOLUTE COUNT (BEAKER) (test 1.11 K/ L 1.32-3.57 whvz=891) MONOCYTES ABSOLUTE COUNT (BEAKER) (test 0.73 K/ L 0.30-0.82 hbin=565) EOSINOPHILS ABSOLUTE COUNT (BEAKER) (test 0.07 K/ L 0.04-0.54 dgyh=659) BASOPHILS ABSOLUTE COUNT (BEAKER) (test 0.02 K/ L 0.01-0.08 gdat=636) IMMATURE GRANULOCYTES-RELATIVE PERCENT (BEAKER) 2 % 0-1 (test yesy=9142) [id number] 03:45:00 Test Item Value Reference Range Comments PHOSPHORUS (BEAKER) (test ckdl=234) 4.7 mg/dL 2.3-4.7 [id number] 03:45:00 Test Item Value Reference Range Comments MAGNESIUM (BEAKER) (test efir=997) 2.0 mg/dL 1.6-2.6 HEPATIC FUNCTION [id number] 03:45:00 Test Item Value Reference Range Comments TOTAL PROTEIN (BEAKER) (test cusx=213) 5.5 gm/dL 6.0-8.3 ALBUMIN (BEAKER) (test njut=6207) 2.4 g/dL 3.5-5.0 BILIRUBIN TOTAL (BEAKER) (test tdbj=296) 2.4 mg/dL 0.2-1.2 BILIRUBIN DIRECT (BEAKER) (test mbmu=573) 2.0 mg/dL 0.1-0.5 ALKALINE PHOSPHATASE (BEAKER) (test eefz=687) 69 U/L 40-150 AST (SGOT) (BEAKER) (test ndis=611) 34 U/L 5-34 ALT (SGPT) (BEAKER) (test ckbw=722) 36 U/L 6-55 [id number] 22:16:00 Test Item Value Reference Range Comments PARTIAL THROMBOPLASTIN TIME (BEAKER) (test 60.7 seconds 22.5-36.0 jgii=964) POCT-GLUCOSE [id number] 18:32:00 Test Item Value Reference Range Comments POC-GLUCOSE METER (BEAKER) 125 mg/dL 70-110 TESTED AT [facility] [address] [facility] (test bmoq=8619) [facility] [id number] CBC (HEMOGRAM ONLY)[id number] 17:21:00 Test Item Value Reference Range Comments WHITE BLOOD CELL COUNT (BEAKER) (test aopd=823) 10.2 K/ L 3.5-10.5 RED BLOOD CELL COUNT (BEAKER) (test zizl=218) 2.57 M/ L 4.63-6.08 HEMOGLOBIN (BEAKER) (test efls=281) 8.1 GM/DL 13.7-17.5 HEMATOCRIT (BEAKER) (test vmqf=902) 24.8 % 40.1-51.0 MEAN CORPUSCULAR VOLUME (BEAKER) (test zpio=204) 96.5 fL 79.0-92.2 MEAN CORPUSCULAR HEMOGLOBIN (BEAKER) (test 31.5 pg 25.7-32.2 qllf=371) MEAN CORPUSCULAR HEMOGLOBIN CONC (BEAKER) (test 32.7 GM/DL 32.3-36.5 xcxg=476) RED CELL DISTRIBUTION WIDTH (BEAKER) (test 19.8 % 11.6-14.4 xoyq=821) PLATELET COUNT (BEAKER) (test bblb=317) 148 K/CU MM 150-450 MEAN PLATELET VOLUME (BEAKER) (test tcfi=518) 9.4 fL 9.4-12.4 NUCLEATED RED BLOOD CELLS (BEAKER) (test 0 /100 WBC 0-0 mhxl=249) BASIC METABOLIC [id number] 07:16:00 Test Item Value Reference Range Comments SODIUM (BEAKER) (test 137 meq/L 136-145 ksht=381) POTASSIUM (BEAKER) (test 3.6 meq/L 3.5-5.1 wzxv=634) CHLORIDE (BEAKER) (test 97 meq/L 98-107 lqtx=545) CO2 (BEAKER) (test 27 meq/L 22-29 olum=624) BLOOD UREA NITROGEN 44 mg/dL 7-21 (BEAKER) (test tysq=466) CREATININE (BEAKER) (test 5.57 mg/dL 0.57-1.25 lszw=395) GLUCOSE RANDOM (BEAKER) 100 mg/dL 70-105 (test gmii=577) CALCIUM (BEAKER) (test 8.6 mg/dL 8.4-10.2 auqw=669) EGFR (BEAKER) (test 13 mL/min/1.73 sq m ESTIMATED GFR IS NOT fbos=9345) ACCURATE CREATININE CLEARANCE IN PREDICTING GLOMERULAR FILTRATION RATE. ESTIMATED GFR IS NOT APPLICABLE FOR DIALYSIS PATIENTS. [id number] 07:13:00 Test Item Value Reference Range Comments PHOSPHORUS (BEAKER) (test fahk=528) 4.3 mg/dL 2.3-4.7 [id number] 07:13:00 Test Item Value Reference Range Comments MAGNESIUM (BEAKER) (test mosw=066) 2.0 mg/dL 1.6-2.6 HEPATIC FUNCTION [id number] 07:13:00 Test Item Value Reference Range Comments TOTAL PROTEIN (BEAKER) (test ooap=931) 5.4 gm/dL 6.0-8.3 ALBUMIN (BEAKER) (test wxat=5208) 2.4 g/dL 3.5-5.0 BILIRUBIN TOTAL (BEAKER) (test soch=855) 2.6 mg/dL 0.2-1.2 BILIRUBIN DIRECT (BEAKER) (test gvsc=098) 2.2 mg/dL 0.1-0.5 ALKALINE PHOSPHATASE (BEAKER) (test riwb=300) 65 U/L 40-150 AST (SGOT) (BEAKER) (test agyc=239) 32 U/L 5-34 ALT (SGPT) (BEAKER) (test nglk=414) 37 U/L 6-55 [id number] 07:12:00 Test Item Value Reference Range Comments PROTIME (BEAKER) (test ntzi=029) 14.2 seconds 11.7-14.7 INR (BEAKER) (test miys=865) 1.1 <=5.9 PARTIAL THROMBOPLASTIN TIME (BEAKER) (test 66.6 seconds 22.5-36.0 segc=342) RECOMMENDED COUMADIN/WARFARIN INR THERAPY RANGESSTANDARD DOSE: 2.0 - 3.0 Includes: PROPHYLAXIS forvenous thrombosis, systemic embolization; TREATMENT for venous thrombosis and/or pulmonary embolus.HIGH RISK: Target INR is 2.5-3.5 for patients with mechanical heart valves.CBC W/PLT COUNT & AUTO [id number] 06:58:00 Test Item Value Reference Range Comments WHITE BLOOD CELL COUNT (BEAKER) (test xurw=602) 9.5 K/ L 3.5-10.5 RED BLOOD CELL COUNT (BEAKER) (test lxre=758) 2.50 M/ L 4.63-6.08 HEMOGLOBIN (BEAKER) (test trdp=515) 7.8 GM/DL 13.7-17.5 HEMATOCRIT (BEAKER) (test byfs=281) 24.2 % 40.1-51.0 MEAN CORPUSCULAR VOLUME (BEAKER) (test pnkx=708) 96.8 fL 79.0-92.2 MEAN CORPUSCULAR HEMOGLOBIN (BEAKER) (test 31.2 pg 25.7-32.2 mipi=316) MEAN CORPUSCULAR HEMOGLOBIN CONC (BEAKER) (test 32.2 GM/DL 32.3-36.5 mutj=092) RED CELL DISTRIBUTION WIDTH (BEAKER) (test 19.8 % 11.6-14.4 klvz=254) PLATELET COUNT (BEAKER) (test ndrs=157) 142 K/CU MM 150-450 MEAN PLATELET VOLUME (BEAKER) (test jjcv=421) 9.9 fL 9.4-12.4 NUCLEATED RED BLOOD CELLS (BEAKER) (test 0 /100 WBC 0-0 gdrh=587) NEUTROPHILS RELATIVE PERCENT (BEAKER) (test 81 % uqzj=966) LYMPHOCYTES RELATIVE PERCENT (BEAKER) (test 9 % cptb=069) MONOCYTES RELATIVE PERCENT (BEAKER) (test 7 % wwnd=669) EOSINOPHILS RELATIVE PERCENT (BEAKER) (test 1 % sjet=799) BASOPHILS RELATIVE PERCENT (BEAKER) (test 0 % lveq=744) NEUTROPHILS ABSOLUTE COUNT (BEAKER) (test 7.74 K/ L 1.78-5.38 rnuc=180) LYMPHOCYTES ABSOLUTE COUNT (BEAKER) (test 0.89 K/ L 1.32-3.57 bhgk=200) MONOCYTES ABSOLUTE COUNT (BEAKER) (test 0.62 K/ L 0.30-0.82 hytb=490) EOSINOPHILS ABSOLUTE COUNT (BEAKER) (test 0.06 K/ L 0.04-0.54 yems=290) BASOPHILS ABSOLUTE COUNT (BEAKER) (test 0.01 K/ L 0.01-0.08 jsrp=929) IMMATURE GRANULOCYTES-RELATIVE PERCENT (BEAKER) 2 % 0-1 (test jmah=5164) BLOOD [id number] 00:00:00 Test Item Value Reference Range Comments CULTURE (BEAKER) (test ctpo=5906) No growth in 5 days BLOOD [id number] 00:00:00 Test Item Value Reference Range Comments CULTURE (BEAKER) (test xqlf=9648) No growth in 5 days POCT-GLUCOSE [id number] 23:37:00 Test Item Value Reference Range Comments POC-GLUCOSE METER (BEAKER) 87 mg/dL 70-110 TESTED AT [address] (test kmaj=7709) [place] [address] [id number] 23:06:00 Test Item Value Reference Range Comments PARTIAL THROMBOPLASTIN TIME (BEAKER) (test 81.8 seconds 22.5-36.0 ivdr=937) POCT-GLUCOSE [id number] 20:42:00 Test Item Value Reference Range Comments POC-GLUCOSE METER (BEAKER) 193 mg/dL 70-110 TESTED AT [address] (test thwr=7485) [place] [address] HEMOGLOBIN AND [id number] 17:40:00 Test Item Value Reference Range Comments HEMOGLOBIN (BEAKER) (test mqqr=315) 8.4 GM/DL 13.7-17.5 HEMATOCRIT (BEAKER) (test utmf=633) 25.4 % 40.1-51.0 [id number] 13:06:00 Test Item Value Reference Range Comments PARTIAL THROMBOPLASTIN TIME (BEAKER) (test 61.4 seconds 22.5-36.0 bvgx=650) POCT-GLUCOSE [id number] 12:56:00 Test Item Value Reference Range Comments POC-GLUCOSE METER (BEAKER) 116 mg/dL 70-110 TESTED AT [facility] [address] (test teze=9844) [facility] [address] [id number] 06:43:00 Test Item Value Reference Range Comments FERRITIN (BEAKER) (test bscy=476) 2521 ng/mL 5-275 IRON, TIBC, % SAT. (WITHOUT FERRITIN)2018-01-25 05:51:00 Test Item Value Reference Range Comments IRON (BEAKER) (test ikxr=079) 61 ug/dL 40-160 TOTAL IRON BINDING CAPACITY (BEAKER) (test 165 ug/dL 250-450 cqhr=641) IRON % SATURATION (2) (BEAKER) (test evcl=8690) 37 % 20-55 [id number] 05:32:00 Test Item Value Reference Range Comments PARTIAL THROMBOPLASTIN TIME (BEAKER) (test 63.7 seconds 22.5-36.0 gpfs=775) BASIC METABOLIC [id number] 05:03:00 Test Item Value Reference Range Comments SODIUM (BEAKER) (test 140 meq/L 136-145 vnpy=652) POTASSIUM (BEAKER) (test 3.8 meq/L 3.5-5.1 akzh=899) CHLORIDE (BEAKER) (test 99 meq/L 98-107 fgdx=068) CO2 (BEAKER) (test 28 meq/L 22-29 msql=959) BLOOD UREA NITROGEN 32 mg/dL 7-21 (BEAKER) (test cuee=817) CREATININE (BEAKER) (test 3.87 mg/dL 0.57-1.25 fkip=846) GLUCOSE RANDOM (BEAKER) 145 mg/dL 70-105 (test tclr=707) CALCIUM (BEAKER) (test 8.5 mg/dL 8.4-10.2 qjij=600) EGFR (BEAKER) (test 19 mL/min/1.73 sq m ESTIMATED GFR IS NOT rglh=7045) ACCURATE CREATININE CLEARANCE IN PREDICTING GLOMERULAR FILTRATION RATE. ESTIMATED GFR IS NOT APPLICABLE FOR DIALYSIS PATIENTS. HEPATIC FUNCTION [id number] 05:00:00 Test Item Value Reference Range Comments TOTAL PROTEIN (BEAKER) (test avxo=040) 5.3 gm/dL 6.0-8.3 ALBUMIN (BEAKER) (test jwlb=0227) 2.3 g/dL 3.5-5.0 BILIRUBIN TOTAL (BEAKER) (test kwhc=307) 3.0 mg/dL 0.2-1.2 BILIRUBIN DIRECT (BEAKER) (test ogsd=426) 2.5 mg/dL 0.1-0.5 ALKALINE PHOSPHATASE (BEAKER) (test sckl=618) 72 U/L 40-150 AST (SGOT) (BEAKER) (test atty=518) 34 U/L 5-34 ALT (SGPT) (BEAKER) (test skfh=162) 41 U/L 6-55 [id number] 04:40:00 Test Item Value Reference Range Comments PROTIME (BEAKER) (test qfgr=509) 14.5 seconds 11.7-14.7 INR (BEAKER) (test wbul=256) 1.1 <=5.9 PARTIAL THROMBOPLASTIN TIME (BEAKER) (test 64.1 seconds 22.5-36.0 wfta=775) RECOMMENDED COUMADIN/WARFARIN INR THERAPY RANGESSTANDARD DOSE: 2.0 - 3.0 Includes: PROPHYLAXIS forvenous thrombosis, systemic embolization; TREATMENT for venous thrombosis and/or pulmonary embolus.HIGH RISK: Target INR is 2.5-3.5 for patients with mechanical heart valves.CBC (HEMOGRAM ONLY)2018-01-25 04:27:00 Test Item Value Reference Range Comments WHITE BLOOD CELL COUNT (BEAKER) (test khsg=172) 11.7 K/ L 3.5-10.5 RED BLOOD CELL COUNT (BEAKER) (test qtda=253) 2.55 M/ L 4.63-6.08 HEMOGLOBIN (BEAKER) (test knwr=069) 7.9 GM/DL 13.7-17.5 HEMATOCRIT (BEAKER) (test lcql=760) 24.6 % 40.1-51.0 MEAN CORPUSCULAR VOLUME (BEAKER) (test ykab=018) 96.5 fL 79.0-92.2 MEAN CORPUSCULAR HEMOGLOBIN (BEAKER) (test 31.0 pg 25.7-32.2 qmsu=594) MEAN CORPUSCULAR HEMOGLOBIN CONC (BEAKER) (test 32.1 GM/DL 32.3-36.5 brqj=869) RED CELL DISTRIBUTION WIDTH (BEAKER) (test 20.1 % 11.6-14.4 zlku=418) PLATELET COUNT (BEAKER) (test fjrv=852) 123 K/CU MM 150-450 MEAN PLATELET VOLUME (BEAKER) (test rlyb=287) 10.1 fL 9.4-12.4 NUCLEATED RED BLOOD CELLS (BEAKER) (test 0 /100 WBC 0-0 rhun=688) POCT-GLUCOSE [id number] 00:30:00 Test Item Value Reference Range Comments POC-GLUCOSE METER (BEAKER) 112 mg/dL 70-110 TESTED AT [facility] [address] [facility] (test vgwc=5241) [facility] [address] CBC W/PLT COUNT & AUTO [id number] 19:16:00 Test Item Value Reference Range Comments WHITE BLOOD CELL COUNT (BEAKER) (test fkaq=608) 15.7 K/ L 3.5-10.5 RED BLOOD CELL COUNT (BEAKER) (test upvy=800) 2.89 M/ L 4.63-6.08 HEMOGLOBIN (BEAKER) (test abbo=076) 9.1 GM/DL 13.7-17.5 HEMATOCRIT (BEAKER) (test tqsd=510) 27.3 % 40.1-51.0 MEAN CORPUSCULAR VOLUME (BEAKER) (test wpzu=916) 94.5 fL 79.0-92.2 MEAN CORPUSCULAR HEMOGLOBIN (BEAKER) (test 31.5 pg 25.7-32.2 dccl=156) MEAN CORPUSCULAR HEMOGLOBIN CONC (BEAKER) (test 33.3 GM/DL 32.3-36.5 evmp=182) RED CELL DISTRIBUTION WIDTH (BEAKER) (test 19.9 % 11.6-14.4 ytqx=316) PLATELET COUNT (BEAKER) (test ygoz=557) 149 K/CU MM 150-450 MEAN PLATELET VOLUME (BEAKER) (test vixu=593) 9.6 fL 9.4-12.4 NUCLEATED RED BLOOD CELLS (BEAKER) (test 0 /100 WBC 0-0 kprh=979) NEUTROPHILS RELATIVE PERCENT (BEAKER) (test 88 % uukx=586) LYMPHOCYTES RELATIVE PERCENT (BEAKER) (test 5 % jyiu=943) MONOCYTES RELATIVE PERCENT (BEAKER) (test 6 % avji=808) EOSINOPHILS RELATIVE PERCENT (BEAKER) (test 0 % mwyx=586) BASOPHILS RELATIVE PERCENT (BEAKER) (test 0 % fyfm=372) NEUTROPHILS ABSOLUTE COUNT (BEAKER) (test 13.71 K/ L 1.78-5.38 lawh=482) LYMPHOCYTES ABSOLUTE COUNT (BEAKER) (test 0.76 K/ L 1.32-3.57 pulv=818) MONOCYTES ABSOLUTE COUNT (BEAKER) (test 0.90 K/ L 0.30-0.82 ozca=100) EOSINOPHILS ABSOLUTE COUNT (BEAKER) (test 0.07 K/ L 0.04-0.54 expt=747) BASOPHILS ABSOLUTE COUNT (BEAKER) (test 0.02 K/ L 0.01-0.08 rkzq=922) IMMATURE GRANULOCYTES-RELATIVE PERCENT (BEAKER) 1 % 0-1 (test uywo=3162) POCT-GLUCOSE [id number] 18:27:00 Test Item Value Reference Range Comments POC-GLUCOSE METER (BEAKER) 102 mg/dL 70-110 TESTED AT [address] (test lcpk=6230) [place] [address] POCT-GLUCOSE [id number] 13:01:00 Test Item Value Reference Range Comments POC-GLUCOSE METER (BEAKER) 119 mg/dL 70-110 TESTED AT [address] (test ljmc=3057) [place] [address] RAD, CHEST, 1 VIEW, NON [id number] 10:59:00Reason for exam:->ptxShould this be performed at [...] MDReport Verified Date/Time: 01/24/2018 10:59:29 Reading Location: [facility] Diagnostic Imaging Reading Room - [place] [address] BRONCHIAL CULTURE + GRAM [id number] 08:53:00 Test Item Value Reference Range Comments CULTURE (BEAKER) (test 2+ Normal respiratory pete rmjl=8511) present GRAM STAIN RESULT (BEAKER) 4+ White blood cells seen (test rmyv=7114) GRAM STAIN RESULT (BEAKER) No organisms seen (test mlsx=82567) POCT-GLUCOSE [id number] 06:28:00 Test Item Value Reference Range Comments POC-GLUCOSE METER (BEAKER) 119 mg/dL 70-110 TESTED AT [facility] [address] [facility] (test tqqe=1896) [facility] [address] BASIC METABOLIC [id number] 04:41:00 Test Item Value Reference Range Comments SODIUM (BEAKER) (test 138 meq/L 136-145 vuaf=357) POTASSIUM (BEAKER) (test 4.1 meq/L 3.5-5.1 pykv=948) CHLORIDE (BEAKER) (test 98 meq/L 98-107 scfl=498) CO2 (BEAKER) (test 24 meq/L 22-29 eoju=542) BLOOD UREA NITROGEN 59 mg/dL 7-21 (BEAKER) (test rhnl=465) CREATININE (BEAKER) (test 5.65 mg/dL 0.57-1.25 hpre=347) GLUCOSE RANDOM (BEAKER) 118 mg/dL 70-105 (test nunx=698) CALCIUM (BEAKER) (test 8.8 mg/dL 8.4-10.2 gfgn=104) EGFR (BEAKER) (test 13 mL/min/1.73 sq m ESTIMATED GFR IS NOT nqwc=7835) ACCURATE CREATININE CLEARANCE IN PREDICTING GLOMERULAR FILTRATION RATE. ESTIMATED GFR IS NOT APPLICABLE FOR DIALYSIS PATIENTS. Specimen slightly ictericCBC (HEMOGRAM ONLY)2018-01-24 04:34:00 Test Item Value Reference Range Comments WHITE BLOOD CELL COUNT (BEAKER) (test rvvo=710) 13.4 K/ L 3.5-10.5 RED BLOOD CELL COUNT (BEAKER) (test nwce=582) 2.40 M/ L 4.63-6.08 HEMOGLOBIN (BEAKER) (test uwrr=270) 7.4 GM/DL 13.7-17.5 HEMATOCRIT (BEAKER) (test mfvp=757) 22.8 % 40.1-51.0 MEAN CORPUSCULAR VOLUME (BEAKER) (test iqjg=724) 95.0 fL 79.0-92.2 MEAN CORPUSCULAR HEMOGLOBIN (BEAKER) (test 30.8 pg 25.7-32.2 iwlw=917) MEAN CORPUSCULAR HEMOGLOBIN CONC (BEAKER) (test 32.5 GM/DL 32.3-36.5 cmty=994) RED CELL DISTRIBUTION WIDTH (BEAKER) (test 19.8 % 11.6-14.4 vkbd=059) PLATELET COUNT (BEAKER) (test iqmp=965) 107 K/CU MM 150-450 MEAN PLATELET VOLUME (BEAKER) (test zmyt=696) 10.6 fL 9.4-12.4 NUCLEATED RED BLOOD CELLS (BEAKER) (test 0 /100 WBC 0-0 irsk=535) [id number] 04:21:00 Test Item Value Reference Range Comments MAGNESIUM (BEAKER) (test idva=030) 2.0 mg/dL 1.6-2.6 HEPATIC FUNCTION [id number] 04:21:00 Test Item Value Reference Range Comments TOTAL PROTEIN (BEAKER) (test wrof=913) 5.2 gm/dL 6.0-8.3 ALBUMIN (BEAKER) (test hpsy=1957) 2.3 g/dL 3.5-5.0 BILIRUBIN TOTAL (BEAKER) (test nasp=669) 3.9 mg/dL 0.2-1.2 BILIRUBIN DIRECT (BEAKER) (test ehch=949) 3.1 mg/dL 0.1-0.5 ALKALINE PHOSPHATASE (BEAKER) (test oozh=190) 69 U/L 40-150 AST (SGOT) (BEAKER) (test mfvq=951) 36 U/L 5-34 ALT (SGPT) (BEAKER) (test mxkd=153) 36 U/L 6-55 Specimen slightly [id number] 04:13:00 Test Item Value Reference Range Comments PARTIAL THROMBOPLASTIN TIME (BEAKER) (test 72.1 seconds 22.5-36.0 ecmf=317) BLOOD GAS, [id number] 04:13:00 Test Item Value Reference Range Comments PH ARTERIAL (BEAKER) (test sbpw=989) 7.39 7.35-7.45 PCO2 ARTERIAL (BEAKER) (test ztje=368) 48 mmHg 35-45 PO2 ARTERIAL (BEAKER) (test xajy=029) 151 mmHg 80-90 O2 SATURATION ARTERIAL (BEAKER) (test azgp=660) 98.9 % 96.0-97.0 HCO3 ARTERIAL (BEAKER) (test mzlf=630) 28 mmol/L 21-29 BASE EXCESS ARTERIAL (BEAKER) (test xegi=919) 3.1 mmol/L -2.0-3.0 PATIENT TEMPERATURE (BEAKER) (test wtrx=7271) 37.0 C FIO2 (BEAKER) (test agsk=4898) 100.0 % POCT-GLUCOSE [id number] 00:08:00 Test Item Value Reference Range Comments POC-GLUCOSE METER (BEAKER) 150 mg/dL 70-110 TESTED AT [address] (test gpxn=9031) [place] [id number] POCT-GLUCOSE [id number] 18:45:00 Test Item Value Reference Range Comments POC-GLUCOSE METER (BEAKER) 162 mg/dL 70-110 TESTED AT [address] (test ihzr=3196) [facility] [address] POCT-GLUCOSE [id number] 13:14:00 Test Item Value Reference Range Comments POC-GLUCOSE METER (BEAKER) 176 mg/dL 70-110 TESTED AT [address] (test xcpi=8065) [place] [id number] POCT-GLUCOSE [id number] 10:44:00 Test Item Value Reference Range Comments POC-GLUCOSE METER (BEAKER) 146 mg/dL 70-110 TESTED AT [address] (test lfyb=2225) [facility] [address] BLOOD GAS, [id number] 10:32:00 Test Item Value Reference Range Comments PH ARTERIAL (BEAKER) (test ntdk=989) 7.44 7.35-7.45 PCO2 ARTERIAL (BEAKER) (test imvu=811) 45 mmHg 35-45 PO2 ARTERIAL (BEAKER) (test yuzf=355) 145 mmHg 80-90 O2 SATURATION ARTERIAL (BEAKER) (test jipa=770) 98.9 % 96.0-97.0 HCO3 ARTERIAL (BEAKER) (test qfbn=585) 30 mmol/L 21-29 BASE EXCESS ARTERIAL (BEAKER) (test fgcf=926) 4.6 mmol/L -2.0-3.0 PATIENT TEMPERATURE (BEAKER) (test tfma=2431) 36.5 C FIO2 (BEAKER) (test nnzg=9230) 40.0 % RAD, CHEST, 1 VIEW, NON [id number] 09:14:00Reason for exam:->ptxShould this be performed at [...] Verified Date/Time: 01/23/2018 09 :14:48 Reading Location: [facility] Radiology Reading Room BLOOD [id number] 08: 09:00 Test Item Value Reference Range Comments CULTURE (BEAKER) From Aerobic Bottle Only (test xucf=4996) Lactobacillus species GRAM STAIN RESULT From aerobic bottle (BEAKER) (test only: gram positive nucw=3876) rods NOT DETECTEDPanel is negative for [employer] BCID-detectable organisms. Please refer to traditional culture and sensitivity results as they become available.Other organisms and resistance markers not contained in this PCR panel cannot be excluded and follow-up of traditional culture results is required.This sample was tested at the [facility] Clinical Microbiology Laboratory using the [employer] FilmArray Blood Culture ID Panel. This test is FDA cleared for in vitro diagnostic use and has been verified and approved by the [facility] Clinical Microbiology laboratory for clinical use. Reference Range: Not DetectedBLOOD GAS, [id number] 04:45:00 Test Item Value Reference Range Comments PH ARTERIAL (BEAKER) (test dggt=589) 7.42 7.35-7.45 PCO2 ARTERIAL (BEAKER) (test jfum=440) 46 mmHg 35-45 PO2 ARTERIAL (BEAKER) (test wlpa=669) 192 mmHg 80-90 O2 SATURATION ARTERIAL (BEAKER) (test quro=592) 99.3 % 96.0-97.0 HCO3 ARTERIAL (BEAKER) (test mrcg=659) 29 mmol/L 21-29 BASE EXCESS ARTERIAL (BEAKER) (test rzzw=957) 4.2 mmol/L -2.0-3.0 PATIENT TEMPERATURE (BEAKER) (test axmt=4561) 37.0 C FIO2 (BEAKER) (test fsij=2957) 40.0 % BASIC METABOLIC [id number] 04:39:00 Test Item Value Reference Range Comments SODIUM (BEAKER) (test 137 meq/L 136-145 ehpe=126) POTASSIUM (BEAKER) (test 3.8 meq/L 3.5-5.1 gcuj=419) CHLORIDE (BEAKER) (test 100 meq/L 98-107 gdnw=967) CO2 (BEAKER) (test 26 meq/L 22-29 vyec=366) BLOOD UREA NITROGEN 39 mg/dL 7-21 (BEAKER) (test lhqz=269) CREATININE (BEAKER) (test 3.80 mg/dL 0.57-1.25 mgec=932) GLUCOSE RANDOM (BEAKER) 137 mg/dL 70-105 (test itrb=752) CALCIUM (BEAKER) (test 8.1 mg/dL 8.4-10.2 taxf=661) EGFR (BEAKER) (test 20 mL/min/1.73 sq m ESTIMATED GFR IS NOT oewa=2027) ACCURATE CREATININE CLEARANCE IN PREDICTING GLOMERULAR FILTRATION RATE. ESTIMATED GFR IS NOT APPLICABLE FOR DIALYSIS PATIENTS. Specimen slightly [id number] 04:35:00 Test Item Value Reference Range Comments MAGNESIUM (BEAKER) (test kvsg=484) 1.8 mg/dL 1.6-2.6 HEPATIC FUNCTION [id number] 04:35:00 Test Item Value Reference Range Comments TOTAL PROTEIN (BEAKER) (test tfda=694) 4.8 gm/dL 6.0-8.3 ALBUMIN (BEAKER) (test viqg=1678) 2.3 g/dL 3.5-5.0 BILIRUBIN TOTAL (BEAKER) (test fmvx=798) 4.2 mg/dL 0.2-1.2 BILIRUBIN DIRECT (BEAKER) (test qovy=332) 3.5 mg/dL 0.1-0.5 ALKALINE PHOSPHATASE (BEAKER) (test wugh=011) 64 U/L 40-150 AST (SGOT) (BEAKER) (test iupa=911) 33 U/L 5-34 ALT (SGPT) (BEAKER) (test uwmb=430) 40 U/L 6-55 Specimen slightly [id number] 04:18:00 Test Item Value Reference Range Comments PARTIAL THROMBOPLASTIN TIME (BEAKER) (test 68.0 seconds 22.5-36.0 igqn=997) CBC (HEMOGRAM ONLY)2018-01-23 04:10:00 Test Item Value Reference Range Comments WHITE BLOOD CELL COUNT (BEAKER) (test wyep=866) 17.0 K/ L 3.5-10.5 RED BLOOD CELL COUNT (BEAKER) (test zwal=667) 2.48 M/ L 4.63-6.08 HEMOGLOBIN (BEAKER) (test yvii=850) 7.7 GM/DL 13.7-17.5 HEMATOCRIT (BEAKER) (test ivgv=074) 23.4 % 40.1-51.0 MEAN CORPUSCULAR VOLUME (BEAKER) (test wgtd=853) 94.4 fL 79.0-92.2 MEAN CORPUSCULAR HEMOGLOBIN (BEAKER) (test 31.0 pg 25.7-32.2 vgbg=635) MEAN CORPUSCULAR HEMOGLOBIN CONC (BEAKER) (test 32.9 GM/DL 32.3-36.5 lkww=935) RED CELL DISTRIBUTION WIDTH (BEAKER) (test 20.4 % 11.6-14.4 dcwb=987) PLATELET COUNT (BEAKER) (test vvaa=546) 85 K/CU MM 150-450 MEAN PLATELET VOLUME (BEAKER) (test lwtl=568) 10.1 fL 9.4-12.4 NUCLEATED RED BLOOD CELLS (BEAKER) (test 0 /100 WBC 0-0 kwpa=509) POCT-GLUCOSE [id number] 00:52:00 Test Item Value Reference Range Comments POC-GLUCOSE METER (BEAKER) 145 mg/dL 70-110 TESTED AT [facility] [address] [facility] [facility] (test nbiw=2421) [facility] [address] BLOOD [id number] 00:00:00 Test Item Value Reference Range Comments CULTURE (BEAKER) (test gclc=1308) No growth in 5 days POCT-GLUCOSE [id number] 18:17:00 Test Item Value Reference Range Comments POC-GLUCOSE METER (BEAKER) 97 mg/dL 70-110 TESTED AT [address] (test fpva=2099) [place] [id number] POCT-GLUCOSE [id number] 13:26:00 Test Item Value Reference Range Comments POC-GLUCOSE METER (BEAKER) 138 mg/dL 70-110 TESTED AT [address] (test wluf=1406) [place] [address] BLOOD GAS, [id number] 10:32:00 Test Item Value Reference Range Comments PH ARTERIAL (BEAKER) (test dmkz=902) 7.43 7.35-7.45 PCO2 ARTERIAL (BEAKER) (test qgau=267) 39 mmHg 35-45 PO2 ARTERIAL (BEAKER) (test qdvc=532) 145 mmHg 80-90 O2 SATURATION ARTERIAL (BEAKER) (test frcm=108) 98.9 % 96.0-97.0 HCO3 ARTERIAL (BEAKER) (test xxnj=841) 25 mmol/L 21-29 BASE EXCESS ARTERIAL (BEAKER) (test iilj=262) 0.7 mmol/L -2.0-3.0 PATIENT TEMPERATURE (BEAKER) (test aqim=7748) 37.0 C FIO2 (BEAKER) (test kwrh=2631) 40.0 % POCT-GLUCOSE [id number] 06:21:00 Test Item Value Reference Range Comments POC-GLUCOSE METER (BEAKER) 138 mg/dL 70-110 TESTED AT [address] (test xedn=2845) [place] [address] BASIC METABOLIC [id number] 04:25:00 Test Item Value Reference Range Comments SODIUM (BEAKER) (test 135 meq/L 136-145 kqjq=338) POTASSIUM (BEAKER) (test 4.1 meq/L 3.5-5.1 euqs=350) CHLORIDE (BEAKER) (test 98 meq/L 98-107 qwnv=133) CO2 (BEAKER) (test 24 meq/L 22-29 yfqx=759) BLOOD UREA NITROGEN 76 mg/dL 7-21 (BEAKER) (test vryy=660) CREATININE (BEAKER) (test 5.57 mg/dL 0.57-1.25 qtqf=364) GLUCOSE RANDOM (BEAKER) 120 mg/dL 70-105 (test cyjw=063) CALCIUM (BEAKER) (test 7.8 mg/dL 8.4-10.2 zbch=494) EGFR (BEAKER) (test 13 mL/min/1.73 sq m ESTIMATED GFR IS NOT snig=2643) ACCURATE CREATININE CLEARANCE IN PREDICTING GLOMERULAR FILTRATION RATE. ESTIMATED GFR IS NOT APPLICABLE FOR DIALYSIS PATIENTS. Specimen slightly [id number] 04:24:00 Test Item Value Reference Range Comments MAGNESIUM (BEAKER) (test dwvp=692) 2.1 mg/dL 1.6-2.6 HEPATIC FUNCTION [id number] 04:24:00 Test Item Value Reference Range Comments TOTAL PROTEIN (BEAKER) (test xedf=605) 4.2 gm/dL 6.0-8.3 ALBUMIN (BEAKER) (test nusv=4549) 2.1 g/dL 3.5-5.0 BILIRUBIN TOTAL (BEAKER) (test osqe=362) 4.3 mg/dL 0.2-1.2 BILIRUBIN DIRECT (BEAKER) (test jstk=975) 3.7 mg/dL 0.1-0.5 ALKALINE PHOSPHATASE (BEAKER) (test bmhi=461) 48 U/L 40-150 AST (SGOT) (BEAKER) (test ycsz=031) 33 U/L 5-34 ALT (SGPT) (BEAKER) (test ddvw=708) 42 U/L 6-55 Specimen slightly ictericCBC (HEMOGRAM ONLY)2018-01-22 04:18:00 Test Item Value Reference Range Comments WHITE BLOOD CELL COUNT (BEAKER) (test ltbb=024) 14.2 K/ L 3.5-10.5 RED BLOOD CELL COUNT (BEAKER) (test xfzz=780) 2.34 M/ L 4.63-6.08 HEMOGLOBIN (BEAKER) (test czqt=501) 7.3 GM/DL 13.7-17.5 HEMATOCRIT (BEAKER) (test tnpt=223) 21.6 % 40.1-51.0 MEAN CORPUSCULAR VOLUME (BEAKER) (test kbsj=717) 92.3 fL 79.0-92.2 MEAN CORPUSCULAR HEMOGLOBIN (BEAKER) (test 31.2 pg 25.7-32.2 ygih=064) MEAN CORPUSCULAR HEMOGLOBIN CONC (BEAKER) (test 33.8 GM/DL 32.3-36.5 vssi=986) RED CELL DISTRIBUTION WIDTH (BEAKER) (test 20.3 % 11.6-14.4 yuwz=345) PLATELET COUNT (BEAKER) (test roky=769) 78 K/CU MM 150-450 MEAN PLATELET VOLUME (BEAKER) (test fgck=752) 11.0 fL 9.4-12.4 NUCLEATED RED BLOOD CELLS (BEAKER) (test 0 /100 WBC 0-0 kwau=143) [id number] 04:07:00 Test Item Value Reference Range Comments PARTIAL THROMBOPLASTIN TIME (BEAKER) (test 80.2 seconds 22.5-36.0 pcjr=278) BLOOD GAS, [id number] 04:06:00 Test Item Value Reference Range Comments PH ARTERIAL (BEAKER) (test edfs=012) 7.44 7.35-7.45 PCO2 ARTERIAL (BEAKER) (test mbgd=831) 40 mmHg 35-45 PO2 ARTERIAL (BEAKER) (test faye=393) 128 mmHg 80-90 O2 SATURATION ARTERIAL (BEAKER) (test hyrl=791) 98.7 % 96.0-97.0 HCO3 ARTERIAL (BEAKER) (test pgyk=449) 26 mmol/L 21-29 BASE EXCESS ARTERIAL (BEAKER) (test jbpi=596) 2.0 mmol/L -2.0-3.0 PATIENT TEMPERATURE (BEAKER) (test yfan=9760) 37.0 C FIO2 (BEAKER) (test pfzw=5291) 40.0 % RAD, CHEST, 1 VIEW, NON [id number] 03:32:00Reason for exam:->ptxShould this be performed at [...] MDReport Verified Date/Time: 01/22/2018 03:32:38 Reading Location: [facility] B1 C013Y CT Body Reading Room POCT-GLUCOSE [id number] 00:43:00 Test Item Value Reference Range Comments POC-GLUCOSE METER (BEAKER) 102 mg/dL 70-110 TESTED AT [address] (test rknv=6863) [facility] [address] [id number] 17:31:00 Test Item Value Reference Range Comments PARTIAL THROMBOPLASTIN TIME (BEAKER) (test 65.0 seconds 22.5-36.0 euwg=145) POCT-GLUCOSE [id number] 17:24:00 Test Item Value Reference Range Comments POC-GLUCOSE METER (BEAKER) 171 mg/dL 70-110 TESTED AT [address] (test xrrz=3718) [facility] [address] POCT-GLUCOSE [id number] 13:01:00 Test Item Value Reference Range Comments POC-GLUCOSE METER (BEAKER) 144 mg/dL 70-110 TESTED AT [address] (test fkdk=8106) [facility] [address] [id number] 11:12:00 Test Item Value Reference Range Comments PARTIAL THROMBOPLASTIN TIME (BEAKER) (test 67.9 seconds 22.5-36.0 gpkf=265) RAD, CHEST, 1 VIEW, NON [id number] 08:01:00Reason for exam:->ptxShould this be performed at [...] Location: [facility] Reading Room POCT-GLUCOSE [id number] 06:50:00 Test Item Value Reference Range Comments POC-GLUCOSE METER (BEAKER) 149 mg/dL 70-110 TESTED AT [facility] [address] [facility] (test xmkc=9479) [facility] [id number] CBC (HEMOGRAM ONLY)2018-01-21 04:20:00 Test Item Value Reference Range Comments WHITE BLOOD CELL COUNT (BEAKER) (test qpvt=088) 16.6 K/ L 3.5-10.5 RED BLOOD CELL COUNT (BEAKER) (test cfmv=150) 2.13 M/ L 4.63-6.08 HEMOGLOBIN (BEAKER) (test cvwi=050) 6.8 GM/DL 13.7-17.5 HEMATOCRIT (BEAKER) (test yhgv=477) 20.2 % 40.1-51.0 MEAN CORPUSCULAR VOLUME (BEAKER) (test kojt=053) 94.8 fL 79.0-92.2 MEAN CORPUSCULAR HEMOGLOBIN (BEAKER) (test 31.9 pg 25.7-32.2 dems=654) MEAN CORPUSCULAR HEMOGLOBIN CONC (BEAKER) (test 33.7 GM/DL 32.3-36.5 vqom=820) RED CELL DISTRIBUTION WIDTH (BEAKER) (test 19.5 % 11.6-14.4 lswu=187) PLATELET COUNT (BEAKER) (test zwya=739) 88 K/CU MM 150-450 MEAN PLATELET VOLUME (BEAKER) (test tyrs=775) 10.6 fL 9.4-12.4 NUCLEATED RED BLOOD CELLS (BEAKER) (test 0 /100 WBC 0-0 dxwv=823) [id number] 04:03:00 Test Item Value Reference Range Comments PARTIAL THROMBOPLASTIN TIME (BEAKER) (test 51.2 seconds 22.5-36.0 nvlo=483) BASIC METABOLIC [id number] 04:01:00 Test Item Value Reference Range Comments SODIUM (BEAKER) (test 137 meq/L 136-145 bgde=282) POTASSIUM (BEAKER) (test 3.8 meq/L 3.5-5.1 hxsv=438) CHLORIDE (BEAKER) (test 99 meq/L 98-107 dkbo=825) CO2 (BEAKER) (test 28 meq/L 22-29 kpja=761) BLOOD UREA NITROGEN 50 mg/dL 7-21 (BEAKER) (test xdxn=929) CREATININE (BEAKER) (test 3.75 mg/dL 0.57-1.25 klyi=401) GLUCOSE RANDOM (BEAKER) 90 mg/dL 70-105 (test umyn=213) CALCIUM (BEAKER) (test 7.9 mg/dL 8.4-10.2 nbgt=111) EGFR (BEAKER) (test 20 mL/min/1.73 sq m ESTIMATED GFR IS NOT hlip=9060) ACCURATE CREATININE CLEARANCE IN PREDICTING GLOMERULAR FILTRATION RATE. ESTIMATED GFR IS NOT APPLICABLE FOR DIALYSIS PATIENTS. Specimen moderately [id number] 03:59:00 Test Item Value Reference Range Comments MAGNESIUM (BEAKER) (test hvov=365) 2.0 mg/dL 1.6-2.6 HEPATIC FUNCTION [id number] 03:59:00 Test Item Value Reference Range Comments TOTAL PROTEIN (BEAKER) (test xlhl=861) 4.5 gm/dL 6.0-8.3 ALBUMIN (BEAKER) (test tifw=6957) 2.2 g/dL 3.5-5.0 BILIRUBIN TOTAL (BEAKER) (test agnc=347) 6.0 mg/dL 0.2-1.2 BILIRUBIN DIRECT (BEAKER) (test wuvy=347) 5.1 mg/dL 0.1-0.5 ALKALINE PHOSPHATASE (BEAKER) (test lzae=725) 48 U/L 40-150 AST (SGOT) (BEAKER) (test kbwh=788) 32 U/L 5-34 ALT (SGPT) (BEAKER) (test lbgs=162) 51 U/L 6-55 Specimen moderately ictericVANCOMYCIN LEVEL, [id number] 03:57:00 Test Item Value Reference Range Comments VANCOMYCIN RANDOM (BEAKER) (test yjab=152) 18.3 ug/mL Reference Range: No NormalsOXYGEN SATURATION, [id number] 03:32:00 Test Item Value Reference Range Comments O2 SATURATION (MEASURED) (BEAKER) (test xsqk=5359) 86.3 % BLOOD GAS, [id number] 03:30:00 Test Item Value Reference Range Comments PH ARTERIAL (BEAKER) (test xvjg=923) 7.50 7.35-7.45 PCO2 ARTERIAL (BEAKER) (test uhxs=377) 38 mmHg 35-45 PO2 ARTERIAL (BEAKER) (test ovvd=150) 142 mmHg 80-90 O2 SATURATION ARTERIAL (BEAKER) (test jnfi=932) 99.0 % 96.0-97.0 HCO3 ARTERIAL (BEAKER) (test arls=403) 29 mmol/L 21-29 BASE EXCESS ARTERIAL (BEAKER) (test crjx=285) 5.4 mmol/L -2.0-3.0 PATIENT TEMPERATURE (BEAKER) (test dcut=7503) 37.5 C FIO2 (BEAKER) (test vluk=0083) 40.0 % POCT-GLUCOSE [id number] 23:43:00 Test Item Value Reference Range Comments POC-GLUCOSE METER (BEAKER) 143 mg/dL 70-110 TESTED AT [address] (test hrvg=6810) [place] [address] BLOOD [id number] 18:00:00 Test Item Value Reference Range Comments CULTURE (BEAKER) (test rzoa=9691) No growth in 5 days BLOOD [id number] 18:00:00 Test Item Value Reference Range Comments CULTURE (BEAKER) (test joxf=9506) No growth in 5 days POCT-GLUCOSE [id number] 16:32:00 Test Item Value Reference Range Comments POC-GLUCOSE METER (BEAKER) 185 mg/dL 70-110 TESTED AT [address] (test ssnr=1605) [place] [address] MISCELLANEOUS LAB [id number] 15:04:00 Test Item Value Reference Range Comments SCAN RESULT (test xlqr=[id number]) Result comments: NOT DETECTED Panel is negative for Carter-Waters BCID-detectable organisms. Please refer to traditional culture and sensitivity results as they become available. Other organisms and resistance markers not contained in this PCR panel cannot be excluded and follow-up of traditional culture results is required. This sample was tested at the [facility] Clinical Microbiology Laboratory using the [email or web address] Blood Culture ID Panel. This test is FDA cleared for in vitro diagnostic use and hasbeen verified and approved by the [facility] Clinical Microbiology laboratory for clinical use. ReferenceRange: Not DetectedPOCT-GLUCOSE [id number] 12:25:00 Test Item Value Reference Range Comments POC-GLUCOSE METER (BEAKER) 116 mg/dL 70-110 TESTED AT [facility] [address] [place] [address] (test ynze=5903) [facility] [address] RAD, CHEST, 1 VIEW, NON [id number] 06:38:00Reason for exam:->pl effusionShould this be performed [...] MDReport Verified Date/Time: 01/20/2018 06:38:33 Reading Location: [address] Body Reading Room POCT-GLUCOSE [id number] 05:54:00 Test Item Value Reference Range Comments POC-GLUCOSE METER (BEAKER) 231 mg/dL 70-110 TESTED AT [address] (test hpgr=9132) [facility] [address] VANCOMYCIN LEVEL, [id number] 04:23:00 Test Item Value Reference Range Comments VANCOMYCIN RANDOM (BEAKER) (test nnmp=492) 25.8 ug/mL Reference Range: No [id number] 04:17:00 Test Item Value Reference Range Comments MAGNESIUM (BEAKER) (test jhuy=152) 2.0 mg/dL 1.6-2.6 HEPATIC FUNCTION [id number] 04:17:00 Test Item Value Reference Range Comments TOTAL PROTEIN (BEAKER) (test trel=608) 4.8 gm/dL 6.0-8.3 ALBUMIN (BEAKER) (test yuai=0576) 2.3 g/dL 3.5-5.0 BILIRUBIN TOTAL (BEAKER) (test btlz=962) 7.1 mg/dL 0.2-1.2 BILIRUBIN DIRECT (BEAKER) (test bhia=989) 6.0 mg/dL 0.1-0.5 ALKALINE PHOSPHATASE (BEAKER) (test pvql=358) 53 U/L 40-150 AST (SGOT) (BEAKER) (test agyw=721) 27 U/L 5-34 ALT (SGPT) (BEAKER) (test dnga=964) 65 U/L 6-55 Specimen moderately ictericBASIC METABOLIC [id number] 04:17:00 Test Item Value Reference Range Comments SODIUM (BEAKER) (test 130 meq/L 136-145 zdjb=752) POTASSIUM (BEAKER) (test 4.9 meq/L 3.5-5.1 pcvy=070) CHLORIDE (BEAKER) (test 94 meq/L 98-107 ufpx=722) CO2 (BEAKER) (test 23 meq/L 22-29 aeox=945) BLOOD UREA NITROGEN 76 mg/dL 7-21 (BEAKER) (test ufnl=706) CREATININE (BEAKER) (test 4.93 mg/dL 0.57-1.25 bndl=892) GLUCOSE RANDOM (BEAKER) 203 mg/dL 70-105 (test dtfr=148) CALCIUM (BEAKER) (test 7.9 mg/dL 8.4-10.2 schd=726) EGFR (BEAKER) (test 15 mL/min/1.73 sq m ESTIMATED GFR IS NOT npnm=4902) ACCURATE CREATININE CLEARANCE IN PREDICTING GLOMERULAR FILTRATION RATE. ESTIMATED GFR IS NOT APPLICABLE FOR DIALYSIS PATIENTS. Specimen moderately [id number] 04:05:00 Test Item Value Reference Range Comments PARTIAL THROMBOPLASTIN TIME (BEAKER) (test 69.7 seconds 22.5-36.0 uvab=064) CBC W/PLT COUNT & AUTO [id number] 03:49:00 Test Item Value Reference Range Comments WHITE BLOOD CELL COUNT (BEAKER) (test nmqq=031) 16.1 K/ L 3.5-10.5 RED BLOOD CELL COUNT (BEAKER) (test yukg=080) 2.30 M/ L 4.63-6.08 HEMOGLOBIN (BEAKER) (test iwwq=707) 7.4 GM/DL 13.7-17.5 HEMATOCRIT (BEAKER) (test fxed=776) 22.2 % 40.1-51.0 MEAN CORPUSCULAR VOLUME (BEAKER) (test pvmn=945) 96.5 fL 79.0-92.2 MEAN CORPUSCULAR HEMOGLOBIN (BEAKER) (test 32.2 pg 25.7-32.2 vezl=457) MEAN CORPUSCULAR HEMOGLOBIN CONC (BEAKER) (test 33.3 GM/DL 32.3-36.5 jkxm=705) RED CELL DISTRIBUTION WIDTH (BEAKER) (test 19.2 % 11.6-14.4 pupg=224) PLATELET COUNT (BEAKER) (test owhl=513) 71 K/CU MM 150-450 MEAN PLATELET VOLUME (BEAKER) (test yfqt=755) 10.8 fL 9.4-12.4 NUCLEATED RED BLOOD CELLS (BEAKER) (test 1 /100 WBC 0-0 yevj=183) NEUTROPHILS RELATIVE PERCENT (BEAKER) (test 90 % ewjm=905) LYMPHOCYTES RELATIVE PERCENT (BEAKER) (test 2 % juoo=807) MONOCYTES RELATIVE PERCENT (BEAKER) (test 5 % viua=289) EOSINOPHILS RELATIVE PERCENT (BEAKER) (test 0 % imgd=656) BASOPHILS RELATIVE PERCENT (BEAKER) (test 0 % aznr=593) NEUTROPHILS ABSOLUTE COUNT (BEAKER) (test 14.52 K/ L 1.78-5.38 lsjr=500) LYMPHOCYTES ABSOLUTE COUNT (BEAKER) (test 0.33 K/ L 1.32-3.57 smyy=194) MONOCYTES ABSOLUTE COUNT (BEAKER) (test kasq=244) 0.86 K/ L 0.30-0.82 EOSINOPHILS ABSOLUTE COUNT (BEAKER) (test 0.00 K/ L 0.04-0.54 jgqt=980) BASOPHILS ABSOLUTE COUNT (BEAKER) (test viup=474) 0.01 K/ L 0.01-0.08 IMMATURE GRANULOCYTES-RELATIVE PERCENT (BEAKER) 3 % 0-1 (test ocjk=1950) OXYGEN SATURATION, [id number] 03:48:00 Test Item Value Reference Range Comments O2 SATURATION (MEASURED) (BEAKER) (test txmr=6773) 84.1 % POCT-GLUCOSE [id number] 23:14:00 Test Item Value Reference Range Comments POC-GLUCOSE METER (BEAKER) 248 mg/dL 70-110 TESTED AT [address] (test lfbm=6457) [facility] [address] POCT-GLUCOSE [id number] 18:56:00 Test Item Value Reference Range Comments POC-GLUCOSE METER (BEAKER) 213 mg/dL 70-110 TESTED AT [address] (test ijxy=1461) [facility] [address] POCT-GLUCOSE [id number] 14:06:00 Test Item Value Reference Range Comments POC-GLUCOSE METER (BEAKER) 210 mg/dL 70-110 TESTED AT [address] (test ysnx=5397) [place] [id number] SPUTUM CULTURE + GRAM [id number] 13:45:00 Test Item Value Reference Range Comments CULTURE (BEAKER) (test 4+ Normal respiratory pete aswd=6180) present GRAM STAIN RESULT (BEAKER) 4+ WBCs (test obpv=9543) GRAM STAIN RESULT (BEAKER) 0-5 epithelial cells (test axbs=51961) GRAM STAIN RESULT (BEAKER) 3+ gram negative rods (test cayr=47451) GRAM STAIN RESULT (BEAKER) 2+ gram positive cocci in pairs (test mghe=685151) and clusters [id number] 12:37:00 Test Item Value Reference Range Comments PARTIAL THROMBOPLASTIN TIME (BEAKER) (test 74.3 seconds 22.5-36.0 dsym=460) CBC W/PLT COUNT & AUTO [id number] 10:52:00 Test Item Value Reference Range Comments WHITE BLOOD CELL COUNT (BEAKER) (test lzre=922) 17.8 K/ L 3.5-10.5 RED BLOOD CELL COUNT (BEAKER) (test bxim=407) 2.54 M/ L 4.63-6.08 HEMOGLOBIN (BEAKER) (test dhpe=075) 8.0 GM/DL 13.7-17.5 HEMATOCRIT (BEAKER) (test rkof=557) 24.6 % 40.1-51.0 MEAN CORPUSCULAR VOLUME (BEAKER) (test lbuo=562) 96.9 fL 79.0-92.2 MEAN CORPUSCULAR HEMOGLOBIN (BEAKER) (test 31.5 pg 25.7-32.2 usiv=004) MEAN CORPUSCULAR HEMOGLOBIN CONC (BEAKER) (test 32.5 GM/DL 32.3-36.5 hzud=663) RED CELL DISTRIBUTION WIDTH (BEAKER) (test 19.5 % 11.6-14.4 mtpf=662) PLATELET COUNT (BEAKER) (test hnwh=663) 61 K/CU MM 150-450 MEAN PLATELET VOLUME (BEAKER) (test fowm=368) 10.8 fL 9.4-12.4 NUCLEATED RED BLOOD CELLS (BEAKER) (test 2 /100 WBC 0-0 ceaf=110) VANCOMYCIN LEVEL, [id number] 05:41:00 Test Item Value Reference Range Comments VANCOMYCIN RANDOM (BEAKER) (test gtug=340) 27.9 ug/mL Reference Range: No NormalsBASIC METABOLIC [id number] 05:39:00 Test Item Value Reference Range Comments SODIUM (BEAKER) (test 134 meq/L 136-145 hkja=303) POTASSIUM (BEAKER) (test 4.5 meq/L 3.5-5.1 ekww=391) CHLORIDE (BEAKER) (test 98 meq/L 98-107 zkvu=187) CO2 (BEAKER) (test 26 meq/L 22-29 xrjs=006) BLOOD UREA NITROGEN 41 mg/dL 7-21 (BEAKER) (test xjuv=066) CREATININE (BEAKER) (test 3.08 mg/dL 0.57-1.25 mgqw=719) GLUCOSE RANDOM (BEAKER) 192 mg/dL 70-105 (test lbzu=195) CALCIUM (BEAKER) (test 8.0 mg/dL 8.4-10.2 usdx=181) EGFR (BEAKER) (test 25 mL/min/1.73 sq m ESTIMATED GFR IS NOT ttmx=0115) ACCURATE CREATININE CLEARANCE IN PREDICTING GLOMERULAR FILTRATION RATE. ESTIMATED GFR IS NOT APPLICABLE FOR DIALYSIS PATIENTS. Specimen moderately [id number] 05:36:00 Test Item Value Reference Range Comments MAGNESIUM (BEAKER) (test bqtc=209) 2.0 mg/dL 1.6-2.6 [id number] 05:36:00 Test Item Value Reference Range Comments PHOSPHORUS (BEAKER) (test zaxh=404) 3.9 mg/dL 2.3-4.7 HEPATIC FUNCTION [id number] 05:36:00 Test Item Value Reference Range Comments TOTAL PROTEIN (BEAKER) (test heey=981) 4.8 gm/dL 6.0-8.3 ALBUMIN (BEAKER) (test oyyc=6733) 2.5 g/dL 3.5-5.0 BILIRUBIN TOTAL (BEAKER) (test cfaz=897) 7.7 mg/dL 0.2-1.2 BILIRUBIN DIRECT (BEAKER) (test tdcl=484) 6.3 mg/dL 0.1-0.5 ALKALINE PHOSPHATASE (BEAKER) (test isji=178) 57 U/L 40-150 AST (SGOT) (BEAKER) (test cswv=067) 43 U/L 5-34 ALT (SGPT) (BEAKER) (test iawk=009) 106 U/L 6-55 Specimen moderately ictericOXYGEN SATURATION, [id number] 05:33:00 Test Item Value Reference Range Comments O2 SATURATION (MEASURED) (BEAKER) (test klby=5060) 87.0 % CBC (HEMOGRAM ONLY)2018-01-19 05:25:00 Test Item Value Reference Range Comments WHITE BLOOD CELL COUNT (BEAKER) (test dscm=723) 17.8 K/ L 3.5-10.5 RED BLOOD CELL COUNT (BEAKER) (test rpqw=336) 2.54 M/ L 4.63-6.08 HEMOGLOBIN (BEAKER) (test mrsc=556) 8.0 GM/DL 13.7-17.5 HEMATOCRIT (BEAKER) (test zxta=230) 24.6 % 40.1-51.0 MEAN CORPUSCULAR VOLUME (BEAKER) (test jhwz=184) 96.9 fL 79.0-92.2 MEAN CORPUSCULAR HEMOGLOBIN (BEAKER) (test 31.5 pg 25.7-32.2 rddm=698) MEAN CORPUSCULAR HEMOGLOBIN CONC (BEAKER) (test 32.5 GM/DL 32.3-36.5 kuyj=635) RED CELL DISTRIBUTION WIDTH (BEAKER) (test 19.5 % 11.6-14.4 oypd=682) PLATELET COUNT (BEAKER) (test vtnk=730) 61 K/CU MM 150-450 MEAN PLATELET VOLUME (BEAKER) (test unxh=593) 10.8 fL 9.4-12.4 NUCLEATED RED BLOOD CELLS (BEAKER) (test 2 /100 WBC 0-0 fcgw=353) [id number] 05:24:00 Test Item Value Reference Range Comments PARTIAL THROMBOPLASTIN TIME (BEAKER) (test 68.1 seconds 22.5-36.0 hanr=460) RAD, CHEST, 1 VIEW, NON [id number] 04:41:00Reason for exam:->pl effusionShould this be performed at the bedside?->YesFINAL REPORT CLINICAL INDICATION: Support lines. Comparison: 01/18/2018 The cardiomediastinal contours are stable. Central pulmonary vascular congestion and bilateral parenchymalopacities are unchanged. There is no pneumothorax. Support lines are stable. Signed: Kellen Parra Verified Date/Time: 04:41:27 Reading Location: [address] Reading Room [id number] 00:38:00 Test Item Value Reference Range Comments PARTIAL THROMBOPLASTIN TIME (BEAKER) (test 45.5 seconds 22.5-36.0 tbbw=647) POCT-GLUCOSE [id number] 00:21:00 Test Item Value Reference Range Comments POC-GLUCOSE METER (BEAKER) 189 mg/dL 70-110 TESTED AT [address] (test grmv=5362) [place] [id number] POCT-GLUCOSE [id number] 23:34:00 Test Item Value Reference Range Comments POC-GLUCOSE METER (BEAKER) 162 mg/dL 70-110 TESTED AT [address] (test pllc=4415) [facility] [address] POCT-GLUCOSE [id number] 18:09:00 Test Item Value Reference Range Comments POC-GLUCOSE METER (BEAKER) 172 mg/dL 70-110 TESTED AT [address] (test cxtv=9365) [facility] [address] RAD, ABDOMEN/KUB, 1 VIEW [id number] 17:36:00Reason for exam:->ileusShould this be performed at the bedside?->YesFINAL REPORT Comparison: 01/17/2018 TECHNIQUE: Frontal image of the abdomen FINDINGS: There is a nonspecific bowel gas pattern. Tip of nasogastric projects in the distal stomach. No gross free intraperitoneal air. No acute skeletal abnormality. Signed: Kyle Rome MDReport Verified Date/Time: 01/18/2018 17:36:02 Reading Location: [facility] C013T Transitional Reading Room [id number] 17:10:00 Test Item Value Reference Range Comments PARTIAL THROMBOPLASTIN TIME (BEAKER) (test 27.8 seconds 22.5-36.0 lixo=584) Prior to initiating heparinPOCT-GLUCOSE [id number] 15:22:00 Test Item Value Reference Range Comments POC-GLUCOSE METER (BEAKER) 126 mg/dL 70-110 TESTED AT [facility] [address] [facility] (test sxjc=2785) [facility] [address] [id number] 13:02:00 Test Item Value Reference Range Comments PHOSPHORUS (BEAKER) (test vdcb=508) 3.8 mg/dL 2.3-4.7 BASIC METABOLIC [id number] 13:02:00 Test Item Value Reference Range Comments SODIUM (BEAKER) (test 134 meq/L 136-145 zgqy=401) POTASSIUM (BEAKER) (test 4.6 meq/L 3.5-5.1 yygu=372) CHLORIDE (BEAKER) (test 100 meq/L 98-107 hhaz=961) CO2 (BEAKER) (test 22 meq/L 22-29 rtbk=584) BLOOD UREA NITROGEN 29 mg/dL 7-21 (BEAKER) (test gyoy=706) CREATININE (BEAKER) (test 2.37 mg/dL 0.57-1.25 avco=042) GLUCOSE RANDOM (BEAKER) 142 mg/dL 70-105 (test qmkh=191) CALCIUM (BEAKER) (test 8.0 mg/dL 8.4-10.2 qoku=375) EGFR (BEAKER) (test 34 mL/min/1.73 sq m ESTIMATED GFR IS NOT hrfj=6066) ACCURATE CREATININE CLEARANCE IN PREDICTING GLOMERULAR FILTRATION RATE. ESTIMATED GFR IS NOT APPLICABLE FOR DIALYSIS PATIENTS. Specimen moderately ictericPOCT-GLUCOSE [id number] 12:11:00 Test Item Value Reference Range Comments POC-GLUCOSE METER (BEAKER) 113 mg/dL 70-110 TESTED AT [facility] [address] [facility] (test qfne=8547) [facility] [address] CBC W/PLT COUNT & AUTO [id number] 12:03:00 Test Item Value Reference Range Comments WHITE BLOOD CELL COUNT (BEAKER) (test ilsj=407) 15.4 K/ L 3.5-10.5 RED BLOOD CELL COUNT (BEAKER) (test fusb=471) 2.63 M/ L 4.63-6.08 HEMOGLOBIN (BEAKER) (test uflw=843) 8.4 GM/DL 13.7-17.5 HEMATOCRIT (BEAKER) (test gzwx=895) 25.8 % 40.1-51.0 MEAN CORPUSCULAR VOLUME (BEAKER) (test vlut=285) 98.1 fL 79.0-92.2 MEAN CORPUSCULAR HEMOGLOBIN (BEAKER) (test 31.9 pg 25.7-32.2 umay=340) MEAN CORPUSCULAR HEMOGLOBIN CONC (BEAKER) (test 32.6 GM/DL 32.3-36.5 icck=017) RED CELL DISTRIBUTION WIDTH (BEAKER) (test 19.5 % 11.6-14.4 foro=171) PLATELET COUNT (BEAKER) (test iyvf=295) 65 K/CU MM 150-450 MEAN PLATELET VOLUME (BEAKER) (test qaay=908) 10.9 fL 9.4-12.4 NUCLEATED RED BLOOD CELLS (BEAKER) (test 7 /100 WBC 0-0 auxu=395) RAD, CHEST, 1 VIEW, NON [id number] 09:44:00Reason for exam:->pl effusionShould this be performed at the bedside?->YesFINAL REPORT TECHNIQUE: Single view of the chest. COMPARISON: 01/17/2018 FINDINGS: Bilateral patchy interstitial and airspace opacities are stable. There are no large pleural effusions. No gross pneumothorax.No gross new lung parenchymal changes. A previous catheter in the rightneck has been removed. Remaining lines and tubes are stable. Signed: Kyle Romeeport Verified Date /Time: 01/18/2018 09:44:26 Reading Location: [place] [id number] Transitional Reading Room SPUTUM CULTURE + GRAM [id number] 08:09:00 Test Item Value Reference Range Comments CULTURE (BEAKER) (test 3+ Normal respiratory pete tgwd=1294) present GRAM STAIN RESULT (BEAKER) 4+ WBCs (test izil=8875) GRAM STAIN RESULT (BEAKER) 0-5 epithelial cells (test lyjj=74239) GRAM STAIN RESULT (BEAKER) No organisms seen (test zfca=58224) POCT-GLUCOSE [id number] 07:52:00 Test Item Value Reference Range Comments POC-GLUCOSE METER (BEAKER) 146 mg/dL 70-110 TESTED AT [address] (test xsja=0242) [facility] [address] POCT-GLUCOSE [id number] 06:30:00 Test Item Value Reference Range Comments POC-GLUCOSE METER (BEAKER) 135 mg/dL 70-110 TESTED AT [address] (test kbvz=1515) [facility] [address] POCT-GLUCOSE [id number] 06:30:00 Test Item Value Reference Range Comments POC-GLUCOSE METER (BEAKER) 130 mg/dL 70-110 TESTED AT [address] (test tdho=9462) [place] [id number] [id number] 03:56:00 Test Item Value Reference Range Comments PHOSPHORUS (BEAKER) (test jlhz=439) 3.1 mg/dL 2.3-4.7 [id number] 03:56:00 Test Item Value Reference Range Comments MAGNESIUM (BEAKER) (test tmnl=740) 2.0 mg/dL 1.6-2.6 HEPATIC FUNCTION [id number] 03:56:00 Test Item Value Reference Range Comments TOTAL PROTEIN (BEAKER) (test ddyu=422) 4.8 gm/dL 6.0-8.3 ALBUMIN (BEAKER) (test hnyf=9524) 2.5 g/dL 3.5-5.0 BILIRUBIN TOTAL (BEAKER) (test soza=193) 8.5 mg/dL 0.2-1.2 BILIRUBIN DIRECT (BEAKER) (test bgik=163) 7.1 mg/dL 0.1-0.5 ALKALINE PHOSPHATASE (BEAKER) (test pxsz=407) 57 U/L 40-150 AST (SGOT) (BEAKER) (test cppy=731) 45 U/L 5-34 ALT (SGPT) (BEAKER) (test ltsl=557) 155 U/L 6-55 Specimen moderately ictericVANCOMYCIN LEVEL, [id number] 03:53:00 Test Item Value Reference Range Comments VANCOMYCIN RANDOM (BEAKER) (test mhnq=669) 18.0 ug/mL Reference Range: No [id number] 03:48:00 Test Item Value Reference Range Comments CALCIUM (BEAKER) (test nnkd=897) 8.1 mg/dL 8.4-10.2 CALCIUM, [id number] 03:34:00 Test Item Value Reference Range Comments CALCIUM IONIZED (BEAKER) (test jzyg=049) 1.06 mmol/L 1.12-1.27 PH, BLOOD (BEAKER) (test uiva=9883) 7.38 OXYGEN SATURATION, [id number] 03:33:00 Test Item Value Reference Range Comments O2 SATURATION (MEASURED) (BEAKER) (test qvan=1108) 85.8 % POCT-GLUCOSE [id number] 03:26:00 Test Item Value Reference Range Comments POC-GLUCOSE METER (BEAKER) 144 mg/dL 70-110 TESTED AT [address] (test srwi=3002) [place] [id number] POCT-GLUCOSE [id number] 03:26:00 Test Item Value Reference Range Comments POC-GLUCOSE METER (BEAKER) 163 mg/dL 70-110 TESTED AT [address] (test aomy=3313) [facility] [address] POCT-GLUCOSE [id number] 01:04:00 Test Item Value Reference Range Comments POC-GLUCOSE METER (BEAKER) 159 mg/dL 70-110 TESTED AT [address] (test xxfq=7856) [place] [id number] POCT-GLUCOSE [id number] 00:12:00 Test Item Value Reference Range Comments POC-GLUCOSE METER (BEAKER) 132 mg/dL 70-110 TESTED AT [address] (test oosj=5559) [facility] [id number] LACTIC ACID, ARTERIAL, WHOLE [id number] 23:54:00 Test Item Value Reference Range Comments LACTATE BLOOD ARTERIAL (2) (BEAKER) (test 0.7 mmol/L 0.5-2.2 frac=2993) Effective 01/04/2016: Units/Reference Range ChangeNew: 0.5-2.2 mmol/L Previous: 5 -20 mg/dLSpecimen moderately ictericPOTASSIUM-STAT [id number] 23:30:00 Test Item Value Reference Range Comments POTASSIUM (BEAKER) (test xwhh=171) 4.0 meq/L 3.6-5.5 BLOOD GAS, [id number] 23:30:00 Test Item Value Reference Range Comments PH ARTERIAL (BEAKER) (test znhl=173) 7.45 7.35-7.45 PCO2 ARTERIAL (BEAKER) (test zqaj=291) 42 mmHg 35-45 PO2 ARTERIAL (BEAKER) (test embj=089) 95 mmHg 80-90 O2 SATURATION ARTERIAL (BEAKER) (test fqxm=507) 97.5 % 96.0-97.0 HCO3 ARTERIAL (BEAKER) (test rsnh=149) 29 mmol/L 21-29 BASE EXCESS ARTERIAL (BEAKER) (test ioic=788) 4.3 mmol/L -2.0-3.0 PATIENT TEMPERATURE (BEAKER) (test eyci=3732) 37.1 C FIO2 (BEAKER) (test vebc=8212) 50.0 % SODIUM NA-STAT [id number] 23:30:00 Test Item Value Reference Range Comments SODIUM (BEAKER) (test geok=920) 134 meq/L 135-148 GLUCOSE-STAT [id number] 23:30:00 Test Item Value Reference Range Comments GLUCOSE RANDOM (BEAKER) (test etxk=781) 138 mg/dL 70-110 HGB/HCT (H&H) - STAT [id number] 23:30:00 Test Item Value Reference Range Comments HEMOGLOBIN (BEAKER) (test iruz=158) 9.0 g/dL 13.0-16.8 HEMATOCRIT (BEAKER) (test nzml=068) 26.0 % 40.0-50.0 CALCIUM, [id number] 23:30:00 Test Item Value Reference Range Comments CALCIUM IONIZED (BEAKER) (test jicg=667) 1.04 mmol/L 1.12-1.27 PH, BLOOD (BEAKER) (test bqrj=8086) 7.48 OXYGEN SATURATION, [id number] 23:28:00 Test Item Value Reference Range Comments O2 SATURATION (MEASURED) (BEAKER) (test amnj=7467) 82.0 % POCT-GLUCOSE [id number] 21:35:00 Test Item Value Reference Range Comments POC-GLUCOSE METER (BEAKER) 99 mg/dL 70-110 TESTED AT [facility] [address] [facility] (test weto=5014) [facility] [address] POCT-GLUCOSE [id number] 21:35:00 Test Item Value Reference Range Comments POC-GLUCOSE METER (BEAKER) 111 mg/dL 70-110 TESTED AT [address] (test cqhj=9184) [facility] [address] RAD, CHEST, 1 VIEW, NON [id number] 17:08:00Reason for exam:->LIJ placment CVCShould this be [...] and well aligned. No fracture. Signed: Alonso Vailepdamion Verified Date/Time: 01/17/2018 17:08:24 Reading Location: [facility] Radiology Reading Room GLUCOSE-STAT [id number] 16:33:00 Test Item Value Reference Range Comments GLUCOSE RANDOM (BEAKER) (test xogn=016) 147 mg/dL 70-110 POTASSIUM-STAT [id number] 16:32:00 Test Item Value Reference Range Comments POTASSIUM (BEAKER) (test jltl=050) 4.7 meq/L 3.6-5.5 [id number] 15:03:00 Test Item Value Reference Range Comments PROCALCITONIN (BEAKER) (test zcrq=0801) 5.33 ng/mL <0.05 SEPSIS RISK (ng/mL)Low: 0.05-0.50Intermediate: 0.51-2.00High: & gt;=2.01CT BRAIN WITHOUT IV CONTRAST - [id number] 13:50:00Reason for exam:->altered mental statusFINAL REPORT CT [...] should be excluded clinically. Signed: Dung Granda MDReport Verified Date/Time: 01/17/2018 13:50:42 Reading Location: [facility] Radiology Reading Room CALCIUM, [id number] 12:36:00 Test Item Value Reference Range Comments CALCIUM IONIZED (BEAKER) (test djlf=130) 1.09 mmol/L 1.12-1.27 PH, BLOOD (BEAKER) (test yowt=5885) 7.36 GLUCOSE-STAT [id number] 12:36:00 Test Item Value Reference Range Comments GLUCOSE RANDOM (BEAKER) (test buke=985) 147 mg/dL 70-110 POTASSIUM-STAT [id number] 12:36:00 Test Item Value Reference Range Comments POTASSIUM (BEAKER) (test rsbl=531) 4.7 meq/L 3.6-5.5 RAD, ABDOMEN/KUB, 1 VIEW [id number] 08:42:00Reason for exam:->ileusShould this be performed at [...] MDReport Verified Date/Time: 01/17/2018 08:42:09 Reading Location: [facility] Radiology Reading Room CBC W/ PLT COUNT & AUTO [id number] 08:18:00 Test Item Value Reference Range Comments WHITE BLOOD CELL COUNT (BEAKER) (test fhdf=607) 22.5 K/ L 3.5-10.5 RED BLOOD CELL COUNT (BEAKER) (test xmsi=259) 2.87 M/ L 4.63-6.08 HEMOGLOBIN (BEAKER) (test vrsq=312) 9.0 GM/DL 13.7-17.5 HEMATOCRIT (BEAKER) (test ciey=266) 27.4 % 40.1-51.0 MEAN CORPUSCULAR VOLUME (BEAKER) (test rawk=788) 95.5 fL 79.0-92.2 MEAN CORPUSCULAR HEMOGLOBIN (BEAKER) (test 31.4 pg 25.7-32.2 ivql=958) MEAN CORPUSCULAR HEMOGLOBIN CONC (BEAKER) (test 32.8 GM/DL 32.3-36.5 zbuj=571) RED CELL DISTRIBUTION WIDTH (BEAKER) (test 18.8 % 11.6-14.4 ulip=587) PLATELET COUNT (BEAKER) (test evho=462) 63 K/CU MM 150-450 MEAN PLATELET VOLUME (BEAKER) (test wyby=746) 11.1 fL 9.4-12.4 NUCLEATED RED BLOOD CELLS (BEAKER) (test 6 /100 WBC 0-0 tyid=243) HEPARIN ASSAY - [id number] 08:07:00 Test Item Value Reference Range Comments UNFRACTIONATED HEPARIN-ANTI 10A (BEAKER) (test < u/ml 0.30-0.70 doai=5481) Recommendations for Monitoring Unfractionated Heparin Therapeutic Range: 0.3- 0.7 u/mL with continuous IV infusionPOCT-GLUCOSE [id number] 06:09:00 Test Item Value Reference Range Comments POC-GLUCOSE METER (BEAKER) 143 mg/dL 70-110 TESTED AT [address] (test fdtr=6686) [facility] [address] RAD, CHEST, 1 VIEW, NON [id number] 04:43:00Reason for exam:->acute respiratory insufficiencyShould this be [...] MDReport Verified Date/Time: 01/17/2018 04:43:34 Reading Location: [facility] B1 U183ORH Body Reading Room OXYGEN SATURATION, [id number] 04:13:00 Test Item Value Reference Range Comments O2 SATURATION (MEASURED) (BEAKER) (test aqvg=1806) 85.7 % [id number] 04:06:00 Test Item Value Reference Range Comments PHOSPHORUS (BEAKER) (test vckp=184) 3.1 mg/dL 2.3-4.7 [id number] 04:06:00 Test Item Value Reference Range Comments MAGNESIUM (BEAKER) (test bhok=563) 2.1 mg/dL 1.6-2.6 COMPREHENSIVE METABOLIC [id number] 04:06:00 Test Item Value Reference Range Comments TOTAL PROTEIN (BEAKER) 5.2 gm/dL 6.0-8.3 (test hkyv=813) ALBUMIN (BEAKER) (test 2.8 g/dL 3.5-5.0 spzr=6118) ALKALINE PHOSPHATASE 60 U/L 40-150 (BEAKER) (test wypi=349) BILIRUBIN TOTAL (BEAKER) 9.1 mg/dL 0.2-1.2 (test zews=078) SODIUM (BEAKER) (test 135 meq/L 136-145 varj=545) POTASSIUM (BEAKER) (test 4.7 meq/L 3.5-5.1 ebky=876) CHLORIDE (BEAKER) (test 102 meq/L 98-107 hddp=938) CO2 (BEAKER) (test 24 meq/L 22-29 ahnj=556) BLOOD UREA NITROGEN 22 mg/dL 7-21 (BEAKER) (test ngcd=908) CREATININE (BEAKER) (test 1.47 mg/dL 0.57-1.25 xttq=795) GLUCOSE RANDOM (BEAKER) 144 mg/dL 70-105 (test fpso=528) CALCIUM (BEAKER) (test 8.5 mg/dL 8.4-10.2 nelb=657) AST (SGOT) (BEAKER) (test 64 U/L 5-34 qayf=540) ALT (SGPT) (BEAKER) (test 250 U/L 6-55 clod=483) EGFR (BEAKER) (test 59 mL/min/1.73 sq m ESTIMATED GFR IS NOT umoj=0821) ACCURATE CREATININE CLEARANCE IN PREDICTING GLOMERULAR FILTRATION RATE. ESTIMATED GFR IS NOT APPLICABLE FOR DIALYSIS PATIENTS. Specimen moderately ictericHEPATIC FUNCTION [id number] 04:06:00 Test Item Value Reference Range Comments TOTAL PROTEIN (BEAKER) (test yvte=295) 5.2 gm/dL 6.0-8.3 ALBUMIN (BEAKER) (test bgkb=8572) 2.8 g/dL 3.5-5.0 BILIRUBIN TOTAL (BEAKER) (test zfzk=841) 9.1 mg/dL 0.2-1.2 BILIRUBIN DIRECT (BEAKER) (test yiwt=774) 7.4 mg/dL 0.1-0.5 ALKALINE PHOSPHATASE (BEAKER) (test vxta=530) 60 U/L 40-150 AST (SGOT) (BEAKER) (test rrhb=336) 64 U/L 5-34 ALT (SGPT) (BEAKER) (test uvmf=633) 250 U/L 6-55 Specimen moderately ictericLACTIC ACID, ARTERIAL, WHOLE [id number] 03:59:00 Test Item Value Reference Range Comments LACTATE BLOOD ARTERIAL (2) 0.5 mmol/L 0.5-2.2 Specimen slightly hemolyzed (BEAKER) (test oegd=7913) Effective 01/04/2016: Units/Reference Range ChangeNew: 0.5-2.2 mmol/L Previous: 5 -20 mg/dLSpecimen moderately ictericBLOOD GAS, [id number] 03:58:00 Test Item Value Reference Range Comments PH ARTERIAL (BEAKER) (test oues=932) 7.42 7.35-7.45 PCO2 ARTERIAL (BEAKER) (test bfnk=729) 40 mmHg 35-45 PO2 ARTERIAL (BEAKER) (test mnjh=909) 131 mmHg 80-90 O2 SATURATION ARTERIAL (BEAKER) (test wlqd=927) 98.8 % 96.0-97.0 HCO3 ARTERIAL (BEAKER) (test eria=402) 26 mmol/L 21-29 BASE EXCESS ARTERIAL (BEAKER) (test fsed=433) 0.8 mmol/L -2.0-3.0 PATIENT TEMPERATURE (BEAKER) (test ydad=3534) 35.6 C FIO2 (BEAKER) (test eqpx=2067) 40.0 % CALCIUM, [id number] 03:58:00 Test Item Value Reference Range Comments CALCIUM IONIZED (BEAKER) (test eiry=160) 1.14 mmol/L 1.12-1.27 PH, BLOOD (BEAKER) (test fdbl=9606) 7.41 POCT-GLUCOSE [id number] 02:41:00 Test Item Value Reference Range Comments POC-GLUCOSE METER (BEAKER) 144 mg/dL 70-110 TESTED AT [address] (test tbjm=7478) [facility] [address] POCT-GLUCOSE [id number] 00:30:00 Test Item Value Reference Range Comments POC-GLUCOSE METER (BEAKER) 171 mg/dL 70-110 TESTED AT [address] (test cwua=4839) [facility] [address] POTASSIUM-STAT [id number] 00:08:00 Test Item Value Reference Range Comments POTASSIUM (BEAKER) (test bjmk=683) 4.5 meq/L 3.6-5.5 POCT-GLUCOSE [id number] 23:30:00 Test Item Value Reference Range Comments POC-GLUCOSE METER (BEAKER) 159 mg/dL 70-110 TESTED AT [address] (test guph=1240) [facility] [address] POCT-GLUCOSE [id number] 21:08:00 Test Item Value Reference Range Comments POC-GLUCOSE METER (BEAKER) 194 mg/dL 70-110 TESTED AT [address] (test xaoi=7687) [facility] [address] POCT-GLUCOSE [id number] 21:08:00 Test Item Value Reference Range Comments POC-GLUCOSE METER (BEAKER) 230 mg/dL 70-110 TESTED AT [address] (test diyq=7983) [facility] [address] CALCIUM, [id number] 19:23:00 Test Item Value Reference Range Comments CALCIUM IONIZED (BEAKER) (test mcod=845) 1.14 mmol/L 1.12-1.27 PH, BLOOD (BEAKER) (test rvxa=7888) 7.36 POTASSIUM-STAT [id number] 19:23:00 Test Item Value Reference Range Comments POTASSIUM (BEAKER) (test lzfl=588) 5.1 meq/L 3.6-5.5 [id number] 17:27:00 Test Item Value Reference Range Comments PHOSPHORUS (BEAKER) (test kjzm=808) 2.2 mg/dL 2.3-4.7 [id number] 17:27:00 Test Item Value Reference Range Comments MAGNESIUM (BEAKER) (test afdp=329) 2.1 mg/dL 1.6-2.6 PH, [id number] 17:03:00 Test Item Value Reference Range Comments PH ARTERIAL (BEAKER) (test yapm=024) 7.39 7.35-7.45 POCT-GLUCOSE [id number] 16:43:00 Test Item Value Reference Range Comments POC-GLUCOSE METER (BEAKER) 95 mg/dL 70-110 TESTED AT [address] (test yzyq=6196) [place] [address] POCT-GLUCOSE [id number] 14:41:00 Test Item Value Reference Range Comments POC-GLUCOSE METER (BEAKER) 134 mg/dL 70-110 TESTED AT [address] (test vode=4313) [place] [address] RAD, ABDOMEN/KUB, 1 VIEW [id number] 13:16:00Reason for exam:-> constipationShould this be performed [...] No acute osseous abnormality. Signed: Kay Walter [facility] Verified Date/Time: 01/16/2018 13:16:27 Reading Location: [facility] Mammo Reading Room Electronically signed by: KAY WALTER on01/16/2018 01:16 PMCALCIUM, [id number] 12:38:00 Test Item Value Reference Range Comments CALCIUM IONIZED (BEAKER) (test qkjv=698) 1.14 mmol/L 1.12-1.27 PH, BLOOD (BEAKER) (test ezsb=1664) 7.40 POCT-GLUCOSE [id number] 12:29:00 Test Item Value Reference Range Comments POC-GLUCOSE METER (BEAKER) 127 mg/dL 70-110 TESTED AT [address] (test tltp=8041) [place] [address] POCT-GLUCOSE [id number] 10:34:00 Test Item Value Reference Range Comments POC-GLUCOSE METER (BEAKER) 130 mg/dL 70-110 TESTED AT [address] (test pqiq=4992) [facility] [address] POCT-GLUCOSE [id number] 09:10:00 Test Item Value Reference Range Comments POC-GLUCOSE METER (BEAKER) 151 mg/dL 70-110 TESTED AT [address] (test bkhp=9728) [facility] [address] HEPARIN ASSAY - [id number] 09:00:00 Test Item Value Reference Range Comments UNFRACTIONATED HEPARIN-ANTI 10A (BEAKER) (test < u/ml 0.30-0.70 uoqi=5633) Recommendations for Monitoring Unfractionated Heparin Therapeutic Range: 0.3- 0.7 u/mL with continuous IV infusionCBC W/PLT COUNT & AUTO [id number] 08:55:00 Test Item Value Reference Range Comments WHITE BLOOD CELL COUNT (BEAKER) (test mwxt=147) 11.9 K/ L 3.5-10.5 RED BLOOD CELL COUNT (BEAKER) (test yyqe=111) 2.64 M/ L 4.63-6.08 HEMOGLOBIN (BEAKER) (test zbxm=148) 8.4 GM/DL 13.7-17.5 HEMATOCRIT (BEAKER) (test amix=557) 25.2 % 40.1-51.0 MEAN CORPUSCULAR VOLUME (BEAKER) (test gofo=700) 95.5 fL 79.0-92.2 MEAN CORPUSCULAR HEMOGLOBIN (BEAKER) (test 31.8 pg 25.7-32.2 dtev=488) MEAN CORPUSCULAR HEMOGLOBIN CONC (BEAKER) (test 33.3 GM/DL 32.3-36.5 rouy=028) RED CELL DISTRIBUTION WIDTH (BEAKER) (test 18.5 % 11.6-14.4 iujk=855) PLATELET COUNT (BEAKER) (test gwri=865) 45 K/CU MM 150-450 MEAN PLATELET VOLUME (BEAKER) (test dndd=928) 11.2 fL 9.4-12.4 NUCLEATED RED BLOOD CELLS (BEAKER) (test 9 /100 WBC 0-0 kjjb=696) OXYGEN SATURATION, [id number] 08:30:00 Test Item Value Reference Range Comments O2 SATURATION (MEASURED) (BEAKER) (test guzv=7088) 87.1 % RAD, CHEST, 1 VIEW, NON [id number] 08:11:00Reason for exam:->acute respiratory insufficiencyShould this be performed at the bedside?->YesFINAL REPORT CLINICAL HISTORY: acute respiratory insufficiency TECHNIQUE: 1 view of the chest. COMPARISON: 01/15/2018 IMPRESSION: The Riddleton-Moni catheter has been removed. The supporting lines and tubes are otherwise unchanged. There is no pneumothorax. Mild bilateral perihilar lung opacities have decreased. The cardiomediastinal silhouette is magnified by technique with sternotomy wires. Signed: Lorna Slade MDReport Verified Date/Time: 2017 08:11:02 Reading Location: [facility] Radiology Reading Room POCT- GLUCOSE [id number] 06:43:00 Test Item Value Reference Range Comments POC-GLUCOSE METER (BEAKER) 107 mg/dL 70-110 TESTED AT [address] (test zkfl=1765) [facility] [address] U/S, ABDOMINAL, [id number] 05:25:00Abdomen limited area? Add comment if clarification [...] upper quadrant ultrasound. Signed: JR Lc, Juliana Muniz Verified Date/ Time: 01/16/2018 05:25:06 Reading Location: [facility] B1 C013Y CT Body Reading Room LACTIC ACID, ARTERIAL, WHOLE [id number] 04:06:00 Test Item Value Reference Range Comments LACTATE BLOOD ARTERIAL (2) (BEAKER) (test 0.6 mmol/L 0.5-2.2 qoim=2218) Effective 01/04/2016: Units/Reference Range ChangeNew: 0.5-2.2 mmol/L Previous: 5 -20 mg/dLSpecimen moderately [id number] 04:00:00 Test Item Value Reference Range Comments PHOSPHORUS (BEAKER) (test ghiz=550) 2.2 mg/dL 2.3-4.7 [id number] 04:00:00 Test Item Value Reference Range Comments MAGNESIUM (BEAKER) (test gxjg=058) 2.0 mg/dL 1.6-2.6 [id number] 04:00:00 Test Item Value Reference Range Comments CALCIUM (BEAKER) (test kqtu=854) 8.5 mg/dL 8.4-10.2 COMPREHENSIVE METABOLIC [id number] 04:00:00 Test Item Value Reference Range Comments TOTAL PROTEIN (BEAKER) 5.0 gm/dL 6.0-8.3 (test jqeh=201) ALBUMIN (BEAKER) (test 2.7 g/dL 3.5-5.0 ntnr=5686) ALKALINE PHOSPHATASE 45 U/L 40-150 (BEAKER) (test huhk=814) BILIRUBIN TOTAL (BEAKER) 7.3 mg/dL 0.2-1.2 (test xxow=326) SODIUM (BEAKER) (test 136 meq/L 136-145 gutm=713) POTASSIUM (BEAKER) (test 4.3 meq/L 3.5-5.1 qpoq=920) CHLORIDE (BEAKER) (test 105 meq/L 98-107 wbgd=960) CO2 (BEAKER) (test 25 meq/L 22-29 zoix=962) BLOOD UREA NITROGEN 24 mg/dL 7-21 (BEAKER) (test kwum=677) CREATININE (BEAKER) (test 1.44 mg/dL 0.57-1.25 drpg=076) GLUCOSE RANDOM (BEAKER) 102 mg/dL 70-105 (test okis=157) CALCIUM (BEAKER) (test 8.5 mg/dL 8.4-10.2 wxje=293) AST (SGOT) (BEAKER) (test 107 U/L 5-34 hpns=838) ALT (SGPT) (BEAKER) (test 351 U/L 6-55 yrik=117) EGFR (BEAKER) (test 61 mL/min/1.73 sq m ESTIMATED GFR IS NOT ihiz=7077) ACCURATE CREATININE CLEARANCE IN PREDICTING GLOMERULAR FILTRATION RATE. ESTIMATED GFR IS NOT APPLICABLE FOR DIALYSIS PATIENTS. Specimen moderately ictericHEPATIC FUNCTION [id number] 04:00:00 Test Item Value Reference Range Comments TOTAL PROTEIN (BEAKER) (test atgp=136) 5.0 gm/dL 6.0-8.3 ALBUMIN (BEAKER) (test jjtr=4848) 2.7 g/dL 3.5-5.0 BILIRUBIN TOTAL (BEAKER) (test jrjg=043) 7.3 mg/dL 0.2-1.2 BILIRUBIN DIRECT (BEAKER) (test mrzw=438) 6.0 mg/dL 0.1-0.5 ALKALINE PHOSPHATASE (BEAKER) (test mjxm=794) 45 U/L 40-150 AST (SGOT) (BEAKER) (test msra=272) 107 U/L 5-34 ALT (SGPT) (BEAKER) (test dola=778) 351 U/L 6-55 Specimen moderately ictericBLOOD GAS, [id number] 03:51:00 Test Item Value Reference Range Comments PH ARTERIAL (BEAKER) (test bvgg=277) 7.43 7.35-7.45 PCO2 ARTERIAL (BEAKER) (test vbdm=101) 41 mmHg 35-45 PO2 ARTERIAL (BEAKER) (test tsjv=629) 158 mmHg 80-90 O2 SATURATION ARTERIAL (BEAKER) (test boug=363) 99.1 % 96.0-97.0 HCO3 ARTERIAL (BEAKER) (test ater=460) 27 mmol/L 21-29 BASE EXCESS ARTERIAL (BEAKER) (test lpru=931) 2.1 mmol/L -2.0-3.0 PATIENT TEMPERATURE (BEAKER) (test ngtm=9051) 36.1 C FIO2 (BEAKER) (test anie=8580) 60.0 % PROTHROMBIN [id number] 03:51:00 Test Item Value Reference Range Comments PROTIME (BEAKER) (test tcyx=282) 15.2 seconds 11.7-14.7 INR (BEAKER) (test hdwl=329) 1.2 <=5.9 RECOMMENDED COUMADIN/WARFARIN INR THERAPY RANGESSTANDARD DOSE: 2.0 - 3.0 Includes: PROPHYLAXIS forvenous thrombosis, systemic embolization; TREATMENT for venous thrombosis and/or pulmonary embolus.HIGH RISK: Target INR is 2.5-3.5 for patients with mechanical heart valves.CALCIUM, [id number] 03:51:00 Test Item Value Reference Range Comments CALCIUM IONIZED (BEAKER) (test lcgi=812) 1.17 mmol/L 1.12-1.27 PH, BLOOD (BEAKER) (test palz=6676) 7.42 POCT-GLUCOSE [id number] 02:08:00 Test Item Value Reference Range Comments POC-GLUCOSE METER (BEAKER) 110 mg/dL 70-110 TESTED AT [address] (test sapo=3911) [facility] [address] POCT-GLUCOSE [id number] 01:14:00 Test Item Value Reference Range Comments POC-GLUCOSE METER (BEAKER) 107 mg/dL 70-110 TESTED AT [address] (test ihdg=5503) [facility] [address] POCT-GLUCOSE [id number] 00:29:00 Test Item Value Reference Range Comments POC-GLUCOSE METER (BEAKER) 129 mg/dL 70-110 TESTED AT [address] (test lrvp=4591) [facility] [address] POCT-GLUCOSE [id number] 23:07:00 Test Item Value Reference Range Comments POC-GLUCOSE METER (BEAKER) 152 mg/dL 70-110 TESTED AT [address] (test dtbt=5542) [facility] [address] POCT-GLUCOSE [id number] 22:09:00 Test Item Value Reference Range Comments POC-GLUCOSE METER (BEAKER) 171 mg/dL 70-110 TESTED AT [address] (test pizg=9066) [place] [address] POCT-GLUCOSE [id number] 21:13:00 Test Item Value Reference Range Comments POC-GLUCOSE METER (BEAKER) 171 mg/dL 70-110 TESTED AT [address] (test hijx=5962) [place] [id number] CALCIUM, [id number] 20:50:00 Test Item Value Reference Range Comments CALCIUM IONIZED (BEAKER) (test ilky=866) 1.15 mmol/L 1.12-1.27 PH, BLOOD (BEAKER) (test dout=9540) 7.34 POCT-GLUCOSE [id number] 20:21:00 Test Item Value Reference Range Comments POC-GLUCOSE METER (BEAKER) 206 mg/dL 70-110 TESTED AT [address] (test erwn=3873) [place] [address] POCT-GLUCOSE [id number] 19:16:00 Test Item Value Reference Range Comments POC-GLUCOSE METER (BEAKER) 197 mg/dL 70-110 TESTED AT [address] (test lgzf=9066) [place] [address] [id number] 17:15:00 Test Item Value Reference Range Comments PHOSPHORUS (BEAKER) (test coqu=464) 4.1 mg/dL 2.3-4.7 [id number] 17:15:00 Test Item Value Reference Range Comments MAGNESIUM (BEAKER) (test htvj=372) 1.9 mg/dL 1.6-2.6 EEG AWAKE AND [id number] 14:56:00For STAT EEG- after 5 PM weekdays, weekends and holidays, page the on-call EEG TechReason for exam:->AMSShould this be performed at the bedside?->YesDate(s) of EE01/15/2018DATE OF REPORT : 01/15/2018ACC: [id number] Number: [id number] Location: Inpatient ICUStart time: 13:18Stop time: 13:40ICD-10: R41.82CPT Code: 23285 HISTORY: 62 y/o man with hxof AFib, [...] MD, MSClinical Neurophysiology/Epilepsy Attending 02: 56 PMHEPARIN [id number] 13:21:00 Test Item Value Reference Range Comments HEPARIN ANTIBODY (BEAKER) (test msvz=555) Negative Negative HEPARIN ANTIBODY OD (BEAKER) (test gebz=8146) 0.076 <0.400 4T TOTAL SCORE (BEAKER) (test mrvr=8828) 5 Probability of HIT based on scoring system: 6-8=High probability; 4-5= intermediate probability; 0-3=low probabilityPOCT-GLUCOSE [id number] 12:26: 00 Test Item Value Reference Range Comments POC-GLUCOSE METER (BEAKER) 128 mg/dL 70-110 TESTED AT [facility] [address] [facility] (test zwhs=7215) [facility] [address] FIBRIN SOLUBLE [id number] 11:02:00 Test Item Value Reference Range Comments FIBRIN SOLUBLE MONOMER (BEAKER) (test lsfx=3840) Negative HEPARIN ASSAY - [id number] 10:20:00 Test Item Value Reference Range Comments UNFRACTIONATED HEPARIN-ANTI 10A (BEAKER) (test < u/ml 0.30-0.70 gjqk=5275) Recommendations for Monitoring Unfractionated Heparin Therapeutic Range: 0.3- 0.7 u/mL with continuous IV yyjkioyrX-[id number] 10:14:00 Test Item Value Reference Range Comments D-DIMER QUANTITATIVE (BEAKER) (test tzfi=623) 3.76 MG/L FEU <0.50 Intended Use: The [...] exclusion of thrombosis is within 95-100% range.GLUCOSE-STAT [id number] 10:03:00 Test Item Value Reference Range Comments GLUCOSE RANDOM (BEAKER) (test xfbn=352) 151 mg/dL 70-110 CALCIUM, [id number] 10:02:00 Test Item Value Reference Range Comments CALCIUM IONIZED (BEAKER) (test zpmp=620) 1.13 mmol/L 1.12-1.27 PH, BLOOD (BEAKER) (test ktho=1371) 7.36 POTASSIUM-STAT [id number] 10:01:00 Test Item Value Reference Range Comments POTASSIUM (BEAKER) (test auuu=068) 4.3 meq/L 3.6-5.5 CBC W/PLT COUNT & AUTO [id number] 07:43:00 Test Item Value Reference Range Comments WHITE BLOOD CELL COUNT (BEAKER) (test ezkt=680) 14.7 K/ L 3.5-10.5 RED BLOOD CELL COUNT (BEAKER) (test ezpq=763) 2.90 M/ L 4.63-6.08 HEMOGLOBIN (BEAKER) (test zfrn=528) 9.0 GM/DL 13.7-17.5 HEMATOCRIT (BEAKER) (test mtal=126) 27.4 % 40.1-51.0 MEAN CORPUSCULAR VOLUME (BEAKER) (test hwzh=168) 94.5 fL 79.0-92.2 MEAN CORPUSCULAR HEMOGLOBIN (BEAKER) (test 31.0 pg 25.7-32.2 iiiv=531) MEAN CORPUSCULAR HEMOGLOBIN CONC (BEAKER) (test 32.8 GM/DL 32.3-36.5 wwez=235) RED CELL DISTRIBUTION WIDTH (BEAKER) (test 18.7 % 11.6-14.4 dslt=355) PLATELET COUNT (BEAKER) (test aqsd=095) 42 K/CU MM 150-450 MEAN PLATELET VOLUME (BEAKER) (test nrmt=285) 11.2 fL 9.4-12.4 NUCLEATED RED BLOOD CELLS (BEAKER) (test 13 /100 WBC 0-0 sqbi=561) NEUTROPHILS RELATIVE PERCENT (BEAKER) (test 87 % eoih=692) LYMPHOCYTES RELATIVE PERCENT (BEAKER) (test 3 % tfws=768) MONOCYTES RELATIVE PERCENT (BEAKER) (test 9 % abfd=783) EOSINOPHILS RELATIVE PERCENT (BEAKER) (test 0 % ovbm=238) BASOPHILS RELATIVE PERCENT (BEAKER) (test 0 % sfsn=306) NEUTROPHILS ABSOLUTE COUNT (BEAKER) (test 12.77 K/ L 1.78-5.38 nqau=405) LYMPHOCYTES ABSOLUTE COUNT (BEAKER) (test 0.46 K/ L 1.32-3.57 tpsc=388) MONOCYTES ABSOLUTE COUNT (BEAKER) (test 1.25 K/ L 0.30-0.82 zamt=821) EOSINOPHILS ABSOLUTE COUNT (BEAKER) (test 0.00 K/ L 0.04-0.54 bcch=834) BASOPHILS ABSOLUTE COUNT (BEAKER) (test 0.01 K/ L 0.01-0.08 qwas=933) IMMATURE GRANULOCYTES-RELATIVE PERCENT (BEAKER) 2 % 0-1 (test mtgt=4234) RAD, CHEST, 1 VIEW, NON [id number] 04:00:00Reason for exam:->acute respiratory insufficiencyShould this be performed at the bedside?-> YesAddendum BeginsREPORT STATUS:A Correction: Comparison is made to previous dated 01/14/2018. Signed: Kellen Parra MDReport Verified Date/Time: 01/15/2018 04:00:43 Reading Location: [address] Reading RoomAddendum EndsFINAL REPORT CLINICAL INDICATION: Respiratory insufficiency Comparison: 01/15/2018 The cardiomediastinal contours are stable. Central pulmonary vascular congestion and bilateral parenchymal opacities are unchanged. There is no pneumothorax. Support lines are stable. Signed: Kellen Parra MDReport Verified Date/Time: 03:46:27 Reading Location: [address] Reading Room [id number] 03:36:00 Test Item Value Reference Range Comments PHOSPHORUS (BEAKER) (test atkm=905) 2.7 mg/dL 2.3-4.7 [id number] 03:36:00 Test Item Value Reference Range Comments MAGNESIUM (BEAKER) (test tehy=294) 2.0 mg/dL 1.6-2.6 COMPREHENSIVE METABOLIC [id number] 03:36:00 Test Item Value Reference Range Comments TOTAL PROTEIN (BEAKER) 5.2 gm/dL 6.0-8.3 (test iobn=562) ALBUMIN (BEAKER) (test 2.9 g/dL 3.5-5.0 mstd=2598) ALKALINE PHOSPHATASE 44 U/L 40-150 (BEAKER) (test jlqg=923) BILIRUBIN TOTAL (BEAKER) 5.6 mg/dL 0.2-1.2 (test rjdk=303) SODIUM (BEAKER) (test 137 meq/L 136-145 xdlz=727) POTASSIUM (BEAKER) (test 4.4 meq/L 3.5-5.1 ymnh=556) CHLORIDE (BEAKER) (test 104 meq/L 98-107 ffwd=548) CO2 (BEAKER) (test 23 meq/L 22-29 jhgm=837) BLOOD UREA NITROGEN 27 mg/dL 7-21 (BEAKER) (test vhti=286) CREATININE (BEAKER) (test 1.65 mg/dL 0.57-1.25 qhtg=406) GLUCOSE RANDOM (BEAKER) 134 mg/dL 70-105 (test aeod=275) CALCIUM (BEAKER) (test 9.1 mg/dL 8.4-10.2 gqhx=793) AST (SGOT) (BEAKER) (test 315 U/L 5-34 iezf=024) ALT (SGPT) (BEAKER) (test 665 U/L 6-55 brfy=092) EGFR (BEAKER) (test 52 mL/min/1.73 sq m ESTIMATED GFR IS NOT obne=4396) ACCURATE CREATININE CLEARANCE IN PREDICTING GLOMERULAR FILTRATION RATE. ESTIMATED GFR IS NOT APPLICABLE FOR DIALYSIS PATIENTS. Specimen slightly ictericHEPATIC FUNCTION [id number] 03:36:00 Test Item Value Reference Range Comments TOTAL PROTEIN (BEAKER) (test vnyg=177) 5.2 gm/dL 6.0-8.3 ALBUMIN (BEAKER) (test upth=2038) 2.9 g/dL 3.5-5.0 BILIRUBIN TOTAL (BEAKER) (test tjqv=150) 5.6 mg/dL 0.2-1.2 BILIRUBIN DIRECT (BEAKER) (test acvo=651) 4.4 mg/dL 0.1-0.5 ALKALINE PHOSPHATASE (BEAKER) (test swja=814) 44 U/L 40-150 AST (SGOT) (BEAKER) (test rsyh=983) 315 U/L 5-34 ALT (SGPT) (BEAKER) (test feiu=436) 665 U/L 6-55 Specimen slightly ictericPROTHROMBIN [id number] 03:35:00 Test Item Value Reference Range Comments PROTIME (BEAKER) (test kqvg=832) 16.5 seconds 11.7-14.7 INR (BEAKER) (test cvdi=158) 1.3 <=5.9 RECOMMENDED COUMADIN/WARFARIN INR THERAPY RANGESSTANDARD DOSE: 2.0 - 3.0 Includes: PROPHYLAXIS forvenous thrombosis, systemic embolization; TREATMENT for venous thrombosis and/or pulmonary embolus.HIGH RISK: Target INR is 2.5-3.5 for patients with mechanical heart valves.LACTIC ACID, ARTERIAL, WHOLE [id number] 03:30:00 Test Item Value Reference Range Comments LACTATE BLOOD ARTERIAL (2) 0.8 mmol/L 0.5-2.2 Specimen slightly hemolyzed (BEAKER) (test njcc=7433) Effective 01/04/2016: Units/Reference Range ChangeNew: 0.5-2.2 mmol/L Previous: 5 -20 mg/dLSpecimen slightly ictericBLOOD GAS, [id number] 03:29:00 Test Item Value Reference Range Comments PH ARTERIAL (BEAKER) (test igat=463) 7.36 7.35-7.45 PCO2 ARTERIAL (BEAKER) (test woli=832) 45 mmHg 35-45 PO2 ARTERIAL (BEAKER) (test skck=386) 114 mmHg 80-90 O2 SATURATION ARTERIAL (BEAKER) (test stfg=611) 98.0 % 96.0-97.0 HCO3 ARTERIAL (BEAKER) (test fedu=031) 25 mmol/L 21-29 BASE EXCESS ARTERIAL (BEAKER) (test zrqh=790) -0.6 mmol/L -2.0-3.0 PATIENT TEMPERATURE (BEAKER) (test zzai=0298) 37.0 C FIO2 (BEAKER) (test wvhg=4979) 40.0 % OXYGEN SATURATION, [id number] 03:26:00 Test Item Value Reference Range Comments O2 SATURATION (MEASURED) (BEAKER) (test nxzc=1657) 72.5 % CALCIUM, [id number] 00:17:00 Test Item Value Reference Range Comments CALCIUM IONIZED (BEAKER) (test pwth=069) 1.19 mmol/L 1.12-1.27 PH, BLOOD (BEAKER) (test rsqn=4093) 7.36 POCT-GLUCOSE [id number] 00:15:00 Test Item Value Reference Range Comments POC-GLUCOSE METER (BEAKER) 144 mg/dL 70-110 TESTED AT [address] (test gtte=9874) [facility] [address] POCT-GLUCOSE [id number] 22:43:00 Test Item Value Reference Range Comments POC-GLUCOSE METER (BEAKER) 98 mg/dL 70-110 TESTED AT [address] (test xhxb=9908) [facility] [address] POCT-GLUCOSE [id number] 22:43:00 Test Item Value Reference Range Comments POC-GLUCOSE METER (BEAKER) 80 mg/dL 70-110 TESTED AT [address] (test eywe=1002) [facility] [address] VANCOMYCIN LEVEL, [id number] 20:20:00 Test Item Value Reference Range Comments VANCOMYCIN TROUGH (BEAKER) (test zsfv=130) 20.1 ug/mL 10.0-20.0 Before vanc [id number] 16:52:00 Test Item Value Reference Range Comments PHOSPHORUS (BEAKER) (test wksg=316) 1.7 mg/dL 2.3-4.7 [id number] 16:52:00 Test Item Value Reference Range Comments MAGNESIUM (BEAKER) (test zxua=897) 2.3 mg/dL 1.6-2.6 [id number] 16:39:00 Test Item Value Reference Range Comments AMMONIA (BEAKER) (test xmdp=884) 32 mol/L 18-72 PH, [id number] 16:01:00 Test Item Value Reference Range Comments PH ARTERIAL (BEAKER) (test kxtz=960) 7.42 7.35-7.45 GLUCOSE-STAT [id number] 16:01:00 Test Item Value Reference Range Comments GLUCOSE RANDOM (BEAKER) (test sptt=235) 95 mg/dL 70-110 POTASSIUM-STAT [id number] 16:01:00 Test Item Value Reference Range Comments POTASSIUM (BEAKER) (test toxr=678) 4.3 meq/L 3.6-5.5 CALCIUM, [id number] 16:01:00 Test Item Value Reference Range Comments CALCIUM IONIZED (BEAKER) (test wbhn=487) 1.28 mmol/L 1.12-1.27 PH, BLOOD (BEAKER) (test ievx=3494) 7.42 CALCIUM, [id number] 12:19:00 Test Item Value Reference Range Comments CALCIUM IONIZED (BEAKER) (test lwis=478) 1.36 mmol/L 1.12-1.27 PH, BLOOD (BEAKER) (test vtee=1846) 7.41 GLUCOSE-STAT [id number] 12:17:00 Test Item Value Reference Range Comments GLUCOSE RANDOM (BEAKER) (test eyyz=706) 94 mg/dL 70-110 POTASSIUM-STAT [id number] 12:17:00 Test Item Value Reference Range Comments POTASSIUM (BEAKER) (test rqgw=823) 4.3 meq/L 3.6-5.5 [id number] 11:34:00 Test Item Value Reference Range Comments MAGNESIUM (BEAKER) (test qpqj=929) 2.1 mg/dL 1.6-2.6 BASIC METABOLIC [id number] 11:34:00 Test Item Value Reference Range Comments SODIUM (BEAKER) (test 135 meq/L 136-145 aaal=438) POTASSIUM (BEAKER) (test 4.4 meq/L 3.5-5.1 gcec=285) CHLORIDE (BEAKER) (test 104 meq/L 98-107 vwdo=685) CO2 (BEAKER) (test 23 meq/L 22-29 lxqn=497) BLOOD UREA NITROGEN 28 mg/dL 7-21 (BEAKER) (test xegs=049) CREATININE (BEAKER) (test 1.69 mg/dL 0.57-1.25 dwzl=818) GLUCOSE RANDOM (BEAKER) 148 mg/dL 70-105 (test xsbi=070) CALCIUM (BEAKER) (test 9.0 mg/dL 8.4-10.2 rwbr=964) EGFR (BEAKER) (test 50 mL/min/1.73 sq m ESTIMATED GFR IS NOT yohi=9459) ACCURATE CREATININE CLEARANCE IN PREDICTING GLOMERULAR FILTRATION RATE. ESTIMATED GFR IS NOT APPLICABLE FOR DIALYSIS PATIENTS. Specimen slightly ictericHEPATIC FUNCTION [id number] 11:34:00 Test Item Value Reference Range Comments TOTAL PROTEIN (BEAKER) (test jctb=905) 5.2 gm/dL 6.0-8.3 ALBUMIN (BEAKER) (test ceyi=4751) 3.0 g/dL 3.5-5.0 BILIRUBIN TOTAL (BEAKER) (test otki=667) 4.3 mg/dL 0.2-1.2 BILIRUBIN DIRECT (BEAKER) (test yshi=622) 3.3 mg/dL 0.1-0.5 ALKALINE PHOSPHATASE (BEAKER) (test ylyz=695) 39 U/L 40-150 AST (SGOT) (BEAKER) (test gmww=465) 817 U/L 5-34 ALT (SGPT) (BEAKER) (test kwdz=514) 1247 U/L 6-55 Specimen slightly ictericBLOOD GAS, [id number] 09:44:00 Test Item Value Reference Range Comments PH ARTERIAL (BEAKER) (test jlyr=500) 7.40 7.35-7.45 PCO2 ARTERIAL (BEAKER) (test hisc=596) 46 mmHg 35-45 PO2 ARTERIAL (BEAKER) (test qnbo=248) 238 mmHg 80-90 O2 SATURATION ARTERIAL (BEAKER) (test wuwz=831) 99.5 % 96.0-97.0 HCO3 ARTERIAL (BEAKER) (test zcoi=945) 28 mmol/L 21-29 BASE EXCESS ARTERIAL (BEAKER) (test huhe=025) 2.4 mmol/L -2.0-3.0 PATIENT TEMPERATURE (BEAKER) (test avsg=7323) 37.0 C FIO2 (BEAKER) (test ybdr=9739) 100.0 % GLUCOSE-STAT [id number] 09:42:00 Test Item Value Reference Range Comments GLUCOSE RANDOM (BEAKER) (test uxxl=971) 95 mg/dL 70-110 POTASSIUM-STAT [id number] 09:42:00 Test Item Value Reference Range Comments POTASSIUM (BEAKER) (test ktns=364) 4.5 meq/L 3.6-5.5 CALCIUM, [id number] 09:38:00 Test Item Value Reference Range Comments CALCIUM IONIZED (BEAKER) (test ezic=642) 1.26 mmol/L 1.12-1.27 PH, BLOOD (BEAKER) (test jiqa=2361) 7.41 HEPARIN ASSAY - [id number] 08:44:00 Test Item Value Reference Range Comments UNFRACTIONATED HEPARIN-ANTI 10A (BEAKER) (test < u/ml 0.30-0.70 ghci=1627) Recommendations for Monitoring Unfractionated Heparin Therapeutic Range: 0.3- 0.7 u/mL with continuous IV infusionGLUCOSE-STAT [id number] 06:41:00 Test Item Value Reference Range Comments GLUCOSE RANDOM (BEAKER) (test vyxh=284) 127 mg/dL 70-110 THROMBOELASTOGRAPH (TEG)2018-01-14 06:14:00 Test Item Value Reference Range Comments TEG ACTIVATED CLOTTING TIME (BEAKER) (test 5.1 minutes 4.0-7.0 ehzf=0817) TEG FIBRINOGEN ACTIVITY (BEAKER) (test 66.3 degrees 61.0-73.0 thel=6942) TEG PLT. AGGREGATION (BEAKER) (test rctx=9103) 57.8 MM 55.0-65.0 TEG FIBRINOLYSIS (BEAKER) (test mfbl=4919) 0.0 % 0.0-5.0 TGH ACTIVATED CLOTTING TIME (BEAKER) (test 5.1 minutes 4.0-7.0 gykr=4227) TGH FIBRINOGEN ACTIVITY (BEAKER) (test 65.6 degrees 61.0-73.0 bkju=6949) TGH PLT. AGGREGATION (BEAKER) (test fdmn=8926) 56.4 MM 55.0-65.0 TGH FIBRINOLYSIS (BEAKER) (test jagt=9766) 0.0 % 0.0-5.0 [id number] 05:05:00 Test Item Value Reference Range Comments PHOSPHORUS (BEAKER) (test brqk=978) 2.5 mg/dL 2.3-4.7 [id number] 05:05:00 Test Item Value Reference Range Comments MAGNESIUM (BEAKER) (test bxfu=576) 2.1 mg/dL 1.6-2.6 HEPATIC FUNCTION [id number] 05:05:00 Test Item Value Reference Range Comments TOTAL PROTEIN (BEAKER) (test itkz=464) 5.2 gm/dL 6.0-8.3 ALBUMIN (BEAKER) (test clfo=4126) 3.0 g/dL 3.5-5.0 BILIRUBIN TOTAL (BEAKER) (test eqca=741) 4.3 mg/dL 0.2-1.2 BILIRUBIN DIRECT (BEAKER) (test lako=298) 3.4 mg/dL 0.1-0.5 ALKALINE PHOSPHATASE (BEAKER) (test giio=138) 40 U/L 40-150 AST (SGOT) (BEAKER) (test krod=054) 815 U/L 5-34 ALT (SGPT) (BEAKER) (test odga=664) 1266 U/L 6-55 Specimen slightly [id number] 05:05:00 Test Item Value Reference Range Comments CALCIUM (BEAKER) (test ludr=169) 9.0 mg/dL 8.4-10.2 LACTATE DEHYDROGENASE (LDH)2018-01-14 05:05:00 Test Item Value Reference Range Comments LACTATE DEHYDROGENASE (BEAKER) (test xdju=596) 667 U/L 125-220 PROTHROMBIN [id number] 05:05:00 Test Item Value Reference Range Comments PROTIME (BEAKER) (test lcbv=654) 15.2 seconds 11.7-14.7 INR (BEAKER) (test zhnw=251) 1.2 <=5.9 RECOMMENDED COUMADIN/WARFARIN INR THERAPY RANGESSTANDARD DOSE: 2.0 - 3.0 Includes: PROPHYLAXIS forvenous thrombosis, systemic embolization; TREATMENT for venous thrombosis and/or pulmonary embolus.HIGH RISK: Target INR is 2.5-3.5 for patients with mechanical heart valves.[id number] 05:05:00 Test Item Value Reference Range Comments FIBRINOGEN LEVEL (BEAKER) (test inij=306) 280 mg/dl 225-434 RAD, CHEST, 1 VIEW, NON [id number] 04:57:00Reason for exam:->impella/ECMO /intubationShould this be performed at the bedside?->YesFINAL REPORT CLINICAL INDICATION: Support lines. Comparison: 01/13/2018 The cardiomediastinal contours are stable. Cardiac opacities may reflect atelectasis but pneumonitis should be excluded clinically. There is no pneumothorax. Support lines are stable. Signed: Kellen Parra MDReport Verified Date/Time: 01/14/2018 04:57:02 Reading Location: [address] Reading Room LACTIC ACID, ARTERIAL, WHOLE [id number] 04:55:00 Test Item Value Reference Range Comments LACTATE BLOOD ARTERIAL (2) (BEAKER) (test 1.2 mmol/L 0.5-2.2 pgki=4416) Effective 01/04/2016: Units/Reference Range ChangeNew: 0.5-2.2 mmol/L Previous: 5 -20 mg/dLSpecimen slightly ictericCBC (HEMOGRAM ONLY)2018-01-14 04:45:00 Test Item Value Reference Range Comments WHITE BLOOD CELL COUNT (BEAKER) (test rxmz=483) 11.7 K/ L 3.5-10.5 RED BLOOD CELL COUNT (BEAKER) (test vjsf=105) 2.83 M/ L 4.63-6.08 HEMOGLOBIN (BEAKER) (test inre=890) 9.0 GM/DL 13.7-17.5 HEMATOCRIT (BEAKER) (test jqcy=110) 26.5 % 40.1-51.0 MEAN CORPUSCULAR VOLUME (BEAKER) (test sdqt=678) 93.6 fL 79.0-92.2 MEAN CORPUSCULAR HEMOGLOBIN (BEAKER) (test 31.8 pg 25.7-32.2 qttg=420) MEAN CORPUSCULAR HEMOGLOBIN CONC (BEAKER) (test 34.0 GM/DL 32.3-36.5 vmja=226) RED CELL DISTRIBUTION WIDTH (BEAKER) (test 18.4 % 11.6-14.4 yutb=281) PLATELET COUNT (BEAKER) (test xsms=860) 64 K/CU MM 150-450 MEAN PLATELET VOLUME (BEAKER) (test eztg=966) 11.5 fL 9.4-12.4 NUCLEATED RED BLOOD CELLS (BEAKER) (test 16 /100 WBC 0-0 achg=956) CALCIUM, [id number] 04:39:00 Test Item Value Reference Range Comments CALCIUM IONIZED (BEAKER) (test byyl=914) 1.20 mmol/L 1.12-1.27 PH, BLOOD (BEAKER) (test drlm=4652) 7.37 OXYGEN SATURATION, [id number] 04:38:00 Test Item Value Reference Range Comments O2 SATURATION (MEASURED) (BEAKER) (test pzhz=0282) 75.3 % BLOOD GAS, [id number] 04:37:00 Test Item Value Reference Range Comments PH ARTERIAL (BEAKER) (test hzfz=662) 7.39 7.35-7.45 PCO2 ARTERIAL (BEAKER) (test ppcq=723) 46 mmHg 35-45 PO2 ARTERIAL (BEAKER) (test ewhk=872) 251 mmHg 80-90 O2 SATURATION ARTERIAL (BEAKER) (test zjry=794) 99.6 % 96.0-97.0 HCO3 ARTERIAL (BEAKER) (test zaiq=127) 27 mmol/L 21-29 BASE EXCESS ARTERIAL (BEAKER) (test pyyc=343) 1.6 mmol/L -2.0-3.0 PATIENT TEMPERATURE (BEAKER) (test seov=2440) 35.4 C FIO2 (BEAKER) (test jvcv=5573) 40.0 % GLUCOSE-STAT [id number] 04:37:00 Test Item Value Reference Range Comments GLUCOSE RANDOM (BEAKER) (test wlmz=126) 154 mg/dL 70-110 GLUCOSE-STAT [id number] 02:52:00 Test Item Value Reference Range Comments GLUCOSE RANDOM (BEAKER) (test vfuh=798) 179 mg/dL 70-110 GLUCOSE-STAT [id number] 01:26:00 Test Item Value Reference Range Comments GLUCOSE RANDOM (BEAKER) (test pjxt=519) 195 mg/dL 70-110 [id number] 00:08:00 Test Item Value Reference Range Comments POTASSIUM (BEAKER) (test qorz=654) 4.2 meq/L 3.5-5.1 [id number] 00:08:00 Test Item Value Reference Range Comments GLUCOSE RANDOM (BEAKER) (test oqim=068) 237 mg/dL 70-105 CBC W/PLT COUNT & AUTO [id number] 22:28:00 Test Item Value Reference Range Comments WHITE BLOOD CELL COUNT (BEAKER) (test rpvu=045) 13.2 K/ L 3.5-10.5 RED BLOOD CELL COUNT (BEAKER) (test sbdz=866) 2.32 M/ L 4.63-6.08 HEMOGLOBIN (BEAKER) (test myyi=555) 7.5 GM/DL 13.7-17.5 HEMATOCRIT (BEAKER) (test xqqs=469) 22.6 % 40.1-51.0 MEAN CORPUSCULAR VOLUME (BEAKER) (test sgxg=725) 97.4 fL 79.0-92.2 MEAN CORPUSCULAR HEMOGLOBIN (BEAKER) (test 32.3 pg 25.7-32.2 rwkp=498) MEAN CORPUSCULAR HEMOGLOBIN CONC (BEAKER) (test 33.2 GM/DL 32.3-36.5 dega=395) RED CELL DISTRIBUTION WIDTH (BEAKER) (test 17.6 % 11.6-14.4 wwik=678) PLATELET COUNT (BEAKER) (test hrpt=685) 74 K/CU MM 150-450 MEAN PLATELET VOLUME (BEAKER) (test qtfa=785) 11.3 fL 9.4-12.4 NUCLEATED RED BLOOD CELLS (BEAKER) (test 11 /100 WBC 0-0 rvpm=751) RAD, CHEST, 1 VIEW, NON [id number] 21:50:00Reason for exam:->chest tubes/ intubationShould this be [...] MDReport Verified Date/Time: 01/13/2018 21:50:50 Reading Location: [facility] C013W Consult Reading Room THROMBOELASTOGRAPH (TEG)2018-01-13 21:45:00 Test Item Value Reference Range Comments TEG ACTIVATED CLOTTING TIME (BEAKER) (test 5.8 minutes 4.0-7.0 kmqh=0080) TEG FIBRINOGEN ACTIVITY (BEAKER) (test 63.1 degrees 61.0-73.0 dzsx=0439) TEG PLT. AGGREGATION (BEAKER) (test jfqx=6313) 51.7 MM 55.0-65.0 TEG FIBRINOLYSIS (BEAKER) (test fwjf=4946) 0.0 % 0.0-5.0 TGH ACTIVATED CLOTTING TIME (BEAKER) (test 5.8 minutes 4.0-7.0 qnqz=2714) TGH FIBRINOGEN ACTIVITY (BEAKER) (test 64.9 degrees 61.0-73.0 hneh=4709) TGH PLT. AGGREGATION (BEAKER) (test qrvx=5163) 50.0 MM 55.0-65.0 TGH FIBRINOLYSIS (BEAKER) (test abky=0188) 0.0 % 0.0-5.0 BASIC METABOLIC [id number] 21:35:00 Test Item Value Reference Range Comments SODIUM (BEAKER) (test 135 meq/L 136-145 zlit=473) POTASSIUM (BEAKER) (test 3.4 meq/L 3.5-5.1 bnsh=556) CHLORIDE (BEAKER) (test 103 meq/L 98-107 saix=430) CO2 (BEAKER) (test 21 meq/L 22-29 geos=297) BLOOD UREA NITROGEN 31 mg/dL 7-21 (BEAKER) (test ctjq=044) CREATININE (BEAKER) (test 1.96 mg/dL 0.57-1.25 rgwc=546) GLUCOSE RANDOM (BEAKER) 239 mg/dL 70-105 (test vyid=027) CALCIUM (BEAKER) (test 7.9 mg/dL 8.4-10.2 gsme=891) EGFR (BEAKER) (test 42 mL/min/1.73 sq m ESTIMATED GFR IS NOT eerb=6738) ACCURATE CREATININE CLEARANCE IN PREDICTING GLOMERULAR FILTRATION RATE. ESTIMATED GFR IS NOT APPLICABLE FOR DIALYSIS PATIENTS. Specimen slightly [id number] 21:06:00 Test Item Value Reference Range Comments PHOSPHORUS (BEAKER) (test rzgg=082) 3.7 mg/dL 2.3-4.7 [id number] 21:06:00 Test Item Value Reference Range Comments MAGNESIUM (BEAKER) (test uvqg=187) 2.0 mg/dL 1.6-2.6 LACTIC ACID, ARTERIAL, WHOLE [id number] 21:06:00 Test Item Value Reference Range Comments LACTATE BLOOD ARTERIAL (2) (BEAKER) (test 1.8 mmol/L 0.5-2.2 kbjx=2475) Effective 01/04/2016: Units/Reference Range ChangeNew: 0.5-2.2 mmol/L Previous: 5 -20 mg/dLSpecimen slightly [id number] 21:01:00 Test Item Value Reference Range Comments PARTIAL THROMBOPLASTIN TIME (BEAKER) (test 35.1 seconds 22.5-36.0 dkpu=600) [id number] 21:00:00 Test Item Value Reference Range Comments FIBRINOGEN LEVEL (BEAKER) (test hiqd=534) 253 mg/dl 225-434 PROTHROMBIN [id number] 20:59:00 Test Item Value Reference Range Comments PROTIME (BEAKER) (test kcdq=559) 16.4 seconds 11.7-14.7 INR (BEAKER) (test bias=309) 1.3 <=5.9 RECOMMENDED COUMADIN/WARFARIN INR THERAPY RANGESSTANDARD DOSE: 2.0 - 3.0 Includes: PROPHYLAXIS forvenous thrombosis, systemic embolization; TREATMENT for venous thrombosis and/or pulmonary embolus.HIGH RISK: Target INR is 2.5-3.5 for patients with mechanical heart valves.BLOOD GAS, [id number] 20:47:00 Test Item Value Reference Range Comments PH ARTERIAL (BEAKER) (test yfdr=705) 7.39 7.35-7.45 PCO2 ARTERIAL (BEAKER) (test qsfe=980) 37 mmHg 35-45 PO2 ARTERIAL (BEAKER) (test rlko=984) 230 mmHg 80-90 O2 SATURATION ARTERIAL (BEAKER) (test nmjb=837) 99.5 % 96.0-97.0 HCO3 ARTERIAL (BEAKER) (test bczb=137) 22 mmol/L 21-29 BASE EXCESS ARTERIAL (BEAKER) (test djtu=666) -2.6 mmol/L -2.0-3.0 PATIENT TEMPERATURE (BEAKER) (test slmo=2860) 35.6 C FIO2 (BEAKER) (test zvgy=2286) 40.0 % GLUCOSE-STAT [id number] 20:47:00 Test Item Value Reference Range Comments GLUCOSE RANDOM (BEAKER) (test bpss=395) 235 mg/dL 70-110 CALCIUM, [id number] 20:47:00 Test Item Value Reference Range Comments CALCIUM IONIZED (BEAKER) (test xmgr=972) 0.97 mmol/L 1.12-1.27 PH, BLOOD (BEAKER) (test zugy=3385) 7.39 HGB/HCT (H&H) - STAT [id number] 20:46:00 Test Item Value Reference Range Comments HEMOGLOBIN (BEAKER) (test hpvp=153) 7.7 g/dL 13.0-16.8 HEMATOCRIT (BEAKER) (test lulx=048) 23.0 % 40.0-50.0 POTASSIUM-STAT [id number] 20:46:00 Test Item Value Reference Range Comments POTASSIUM (BEAKER) (test ncyb=455) 3.4 meq/L 3.6-5.5 SODIUM NA-STAT [id number] 20:46:00 Test Item Value Reference Range Comments SODIUM (BEAKER) (test kmpd=079) 133 meq/L 135-148 OXYGEN SATURATION, [id number] 20:42:00 Test Item Value Reference Range Comments O2 SATURATION (MEASURED) (BEAKER) (test hokf=8267) 74.1 % BLOOD GAS, [id number] 18:58:00 Test Item Value Reference Range Comments PH ARTERIAL (BEAKER) (test tvvl=087) 7.53 7.35-7.45 PCO2 ARTERIAL (BEAKER) (test orig=682) 24 mmHg 35-45 PO2 ARTERIAL (BEAKER) (test zwxc=465) 582 mmHg 80-90 O2 SATURATION ARTERIAL (BEAKER) (test zoen=196) 99.9 % 96.0-97.0 HCO3 ARTERIAL (BEAKER) (test amqo=095) 20 mmol/L 21-29 BASE EXCESS ARTERIAL (BEAKER) (test dvfc=134) -2.3 mmol/L -2.0-3.0 PATIENT TEMPERATURE (BEAKER) (test oooq=0872) 37.0 C FIO2 (BEAKER) (test mvin=7251) 100.0 % SODIUM NA-STAT [id number] 18:58:00 Test Item Value Reference Range Comments SODIUM (BEAKER) (test dmxz=326) 131 meq/L 135-148 POTASSIUM-STAT [id number] 18:58:00 Test Item Value Reference Range Comments POTASSIUM (BEAKER) (test bebq=044) 3.4 meq/L 3.6-5.5 GLUCOSE-STAT [id number] 18:58:00 Test Item Value Reference Range Comments GLUCOSE RANDOM (BEAKER) (test ugpl=107) 214 mg/dL 70-110 HGB/HCT (H&H) - STAT [id number] 18:58:00 Test Item Value Reference Range Comments HEMOGLOBIN (BEAKER) (test rpkg=368) 8.1 g/dL 13.0-16.8 HEMATOCRIT (BEAKER) (test pjrx=342) 24.0 % 40.0-50.0 THROMBOELASTOGRAPH (TEG)2018-01-13 18:23:00 Test Item Value Reference Range Comments TEG ACTIVATED CLOTTING TIME (BEAKER) (test 18.1 minutes 4.0-7.0 yyli=4881) TEG FIBRINOGEN ACTIVITY (BEAKER) (test 46.7 degrees 61.0-73.0 bijy=3359) TEG PLT. AGGREGATION (BEAKER) (test kpqj=1250) 51.7 MM 55.0-65.0 TEG FIBRINOLYSIS (BEAKER) (test mtjp=0198) 0.1 % 0.0-5.0 TGH ACTIVATED CLOTTING TIME (BEAKER) (test 8.6 minutes 4.0-7.0 tkip=8839) TGH FIBRINOGEN ACTIVITY (BEAKER) (test 61.3 degrees 61.0-73.0 cwov=9668) TGH PLT. AGGREGATION (BEAKER) (test ctrc=0004) 50.2 MM 55.0-65.0 TGH FIBRINOLYSIS (BEAKER) (test aubn=4206) 0.0 % 0.0-5.0 BLOOD GAS, [id number] 18:11:00 Test Item Value Reference Range Comments PH ARTERIAL (BEAKER) (test yykz=368) 7.56 7.35-7.45 PCO2 ARTERIAL (BEAKER) (test cerm=350) 27 mmHg 35-45 PO2 ARTERIAL (BEAKER) (test kguz=347) 523 mmHg 80-90 O2 SATURATION ARTERIAL (BEAKER) (test fkpt=519) 99.9 % 96.0-97.0 HCO3 ARTERIAL (BEAKER) (test fpfw=772) 24 mmol/L 21-29 BASE EXCESS ARTERIAL (BEAKER) (test uyke=717) 1.6 mmol/L -2.0-3.0 PATIENT TEMPERATURE (BEAKER) (test ndjn=8367) 37.0 C FIO2 (BEAKER) (test urrt=8578) 97.0 % SODIUM NA-STAT [id number] 18:11:00 Test Item Value Reference Range Comments SODIUM (BEAKER) (test zqhv=439) 132 meq/L 135-148 GLUCOSE-STAT [id number] 18:11:00 Test Item Value Reference Range Comments GLUCOSE RANDOM (BEAKER) (test hzqm=927) 200 mg/dL 70-110 HGB/HCT (H&H) - STAT [id number] 18:11:00 Test Item Value Reference Range Comments HEMOGLOBIN (BEAKER) (test rsob=181) 8.2 g/dL 13.0-16.8 HEMATOCRIT (BEAKER) (test unpp=451) 24.0 % 40.0-50.0 POTASSIUM-STAT [id number] 18:07:00 Test Item Value Reference Range Comments POTASSIUM (BEAKER) (test nlfo=859) 3.5 meq/L 3.6-5.5 [id number] 16:37:00 Test Item Value Reference Range Comments PHOSPHORUS (BEAKER) (test yohp=025) 2.5 mg/dL 2.3-4.7 [id number] 16:37:00 Test Item Value Reference Range Comments MAGNESIUM (BEAKER) (test ulec=440) 2.1 mg/dL 1.6-2.6 [id number] 16:29:00 Test Item Value Reference Range Comments PROTIME (BEAKER) (test qjrr=124) 15.1 seconds 11.7-14.7 INR (BEAKER) (test hdrd=317) 1.2 <=5.9 PARTIAL THROMBOPLASTIN TIME (BEAKER) (test 65.5 seconds 22.5-36.0 jpuj=255) RECOMMENDED COUMADIN/WARFARIN INR THERAPY RANGESSTANDARD DOSE: 2.0 - 3.0 Includes: PROPHYLAXIS forvenous thrombosis, systemic embolization; TREATMENT for venous thrombosis and/or pulmonary embolus.HIGH RISK: Target INR is 2.5-3.5 for patients with mechanical heart valves.BLOOD GAS, [id number] 16:16:00 Test Item Value Reference Range Comments PH ARTERIAL (BEAKER) (test snbn=708) 7.64 7.35-7.45 PCO2 ARTERIAL (BEAKER) (test lhrk=077) 24 mmHg 35-45 PO2 ARTERIAL (BEAKER) (test piyl=232) 289 mmHg 80-90 O2 SATURATION ARTERIAL (BEAKER) (test fkry=953) 99.8 % 96.0-97.0 HCO3 ARTERIAL (BEAKER) (test tlof=756) 25 mmol/L 21-29 BASE EXCESS ARTERIAL (BEAKER) (test qcjr=522) 4.4 mmol/L -2.0-3.0 PATIENT TEMPERATURE (BEAKER) (test yqvq=1714) 36.7 C FIO2 (BEAKER) (test rchc=6124) 40.0 % CALCIUM, [id number] 16:14:00 Test Item Value Reference Range Comments CALCIUM IONIZED (BEAKER) (test fzlo=615) 1.09 mmol/L 1.12-1.27 PH, BLOOD (BEAKER) (test nzgl=0437) 7.64 GLUCOSE-STAT [id number] 16:12:00 Test Item Value Reference Range Comments GLUCOSE RANDOM (BEAKER) (test cxfd=602) 182 mg/dL 70-110 CALCIUM, [id number] 12:53:00 Test Item Value Reference Range Comments CALCIUM IONIZED (BEAKER) (test yega=369) 1.12 mmol/L 1.12-1.27 PH, BLOOD (BEAKER) (test kpbx=9684) 7.51 BLOOD GAS, [id number] 12:53:00 Test Item Value Reference Range Comments PH ARTERIAL (BEAKER) (test hjzv=274) 7.51 7.35-7.45 PCO2 ARTERIAL (BEAKER) (test ajto=003) 33 mmHg 35-45 PO2 ARTERIAL (BEAKER) (test jfxv=789) 350 mmHg 80-90 O2 SATURATION ARTERIAL (BEAKER) (test grdw=252) 99.8 % 96.0-97.0 HCO3 ARTERIAL (BEAKER) (test zdfd=624) 26 mmol/L 21-29 BASE EXCESS ARTERIAL (BEAKER) (test jdgt=746) 2.5 mmol/L -2.0-3.0 PATIENT TEMPERATURE (BEAKER) (test sbir=8699) 37.2 C FIO2 (BEAKER) (test jsgl=5436) 40.0 % HGB/HCT (H&H) - STAT [id number] 12:53:00 Test Item Value Reference Range Comments HEMOGLOBIN (BEAKER) (test reij=160) 8.3 g/dL 13.0-16.8 HEMATOCRIT (BEAKER) (test htoz=528) 24.0 % 40.0-50.0 GLUCOSE-STAT [id number] 12:53:00 Test Item Value Reference Range Comments GLUCOSE RANDOM (BEAKER) (test lnvl=265) 185 mg/dL 70-110 POTASSIUM-STAT [id number] 12:52:00 Test Item Value Reference Range Comments POTASSIUM (BEAKER) (test lrds=804) 3.7 meq/L 3.6-5.5 CBC W/PLT COUNT & AUTO [id number] 11:04:00 Test Item Value Reference Range Comments WHITE BLOOD CELL COUNT (BEAKER) (test mrto=940) 11.1 K/ L 3.5-10.5 RED BLOOD CELL COUNT (BEAKER) (test qrum=937) 2.49 M/ L 4.63-6.08 HEMOGLOBIN (BEAKER) (test okzt=392) 8.1 GM/DL 13.7-17.5 HEMATOCRIT (BEAKER) (test itul=547) 24.2 % 40.1-51.0 MEAN CORPUSCULAR VOLUME (BEAKER) (test yegq=420) 97.2 fL 79.0-92.2 MEAN CORPUSCULAR HEMOGLOBIN (BEAKER) (test 32.5 pg 25.7-32.2 ljhs=408) MEAN CORPUSCULAR HEMOGLOBIN CONC (BEAKER) (test 33.5 GM/DL 32.3-36.5 zfif=934) RED CELL DISTRIBUTION WIDTH (BEAKER) (test 17.8 % 11.6-14.4 opys=752) PLATELET COUNT (BEAKER) (test awmk=319) 89 K/CU MM 150-450 MEAN PLATELET VOLUME (BEAKER) (test tzoh=128) 11.4 fL 9.4-12.4 NUCLEATED RED BLOOD CELLS (BEAKER) (test 8 /100 WBC 0-0 kbcg=213) POTASSIUM-STAT [id number] 10:49:00 Test Item Value Reference Range Comments POTASSIUM (BEAKER) (test sizh=208) 3.8 meq/L 3.6-5.5 HEPARIN ASSAY - [id number] 09:55:00 Test Item Value Reference Range Comments UNFRACTIONATED HEPARIN-ANTI 10A (BEAKER) (test 0.14 u/ml 0.30-0.70 vhyi=2911) Recommendations for Monitoring Unfractionated Heparin Therapeutic Range: 0.3- 0.7 u/mL with continuous IV [id number] 09:54:00 Test Item Value Reference Range Comments PARTIAL THROMBOPLASTIN TIME (BEAKER) (test 57.6 seconds 22.5-36.0 rzsa=368) BLOOD GAS, [id number] 09:33:00 Test Item Value Reference Range Comments PH ARTERIAL (BEAKER) (test alkw=209) 7.50 7.35-7.45 PCO2 ARTERIAL (BEAKER) (test dfmq=789) 33 mmHg 35-45 PO2 ARTERIAL (BEAKER) (test pxxk=980) 336 mmHg 80-90 O2 SATURATION ARTERIAL (BEAKER) (test qyco=324) 99.8 % 96.0-97.0 HCO3 ARTERIAL (BEAKER) (test jzom=371) 25 mmol/L 21-29 BASE EXCESS ARTERIAL (BEAKER) (test ifgf=676) 2.1 mmol/L -2.0-3.0 PATIENT TEMPERATURE (BEAKER) (test jujf=7882) 37.2 C FIO2 (BEAKER) (test spne=2912) 40.0 % GLUCOSE-STAT [id number] 09:33:00 Test Item Value Reference Range Comments GLUCOSE RANDOM (BEAKER) (test vgeq=235) 192 mg/dL 70-110 GLUCOSE-STAT [id number] 09:33:00 Test Item Value Reference Range Comments GLUCOSE RANDOM (BEAKER) (test apsj=277) 192 mg/dL 70-110 CALCIUM, [id number] 09:32:00 Test Item Value Reference Range Comments CALCIUM IONIZED (BEAKER) (test dqul=182) 1.15 mmol/L 1.12-1.27 PH, BLOOD (BEAKER) (test enux=2177) 7.51 BLOOD GAS, [id number] 07:23:00 Test Item Value Reference Range Comments PH ARTERIAL (BEAKER) (test qaqz=353) 7.53 7.35-7.45 PCO2 ARTERIAL (BEAKER) (test tsqk=192) 30 mmHg 35-45 PO2 ARTERIAL (BEAKER) (test svmu=083) 336 mmHg 80-90 O2 SATURATION ARTERIAL (BEAKER) (test rdho=248) 99.8 % 96.0-97.0 HCO3 ARTERIAL (BEAKER) (test vkct=157) 24 mmol/L 21-29 BASE EXCESS ARTERIAL (BEAKER) (test mipj=001) 1.8 mmol/L -2.0-3.0 PATIENT TEMPERATURE (BEAKER) (test phjn=6730) 36.9 C FIO2 (BEAKER) (test ugxg=5937) 40.0 % THROMBOELASTOGRAPH (TEG)2018-01-13 06:54:00 Test Item Value Reference Range Comments TEG ACTIVATED CLOTTING TIME (BEAKER) (test 28.1 minutes 4.0-7.0 vgds=5881) TEG FIBRINOGEN ACTIVITY (BEAKER) (test 28.6 degrees 61.0-73.0 cosk=4899) TEG PLT. AGGREGATION (BEAKER) (test emqh=4004) 45.8 MM 55.0-65.0 TEG FIBRINOLYSIS (BEAKER) (test sczo=2532) 0.0 % 0.0-5.0 TGH ACTIVATED CLOTTING TIME (BEAKER) (test 9.9 minutes 4.0-7.0 hppy=3419) TGH FIBRINOGEN ACTIVITY (BEAKER) (test 61.4 degrees 61.0-73.0 aygw=7276) TGH PLT. AGGREGATION (BEAKER) (test ljnd=1115) 50.5 MM 55.0-65.0 TGH FIBRINOLYSIS (BEAKER) (test xpou=9441) 0.0 % 0.0-5.0 BLOOD GAS, [id number] 06:13:00 Test Item Value Reference Range Comments PH ARTERIAL (BEAKER) (test xjdt=153) 7.53 7.35-7.45 PCO2 ARTERIAL (BEAKER) (test xorq=936) 28 mmHg 35-45 PO2 ARTERIAL (BEAKER) (test yrny=205) 337 mmHg 80-90 O2 SATURATION ARTERIAL (BEAKER) (test rabl=994) 99.8 % 96.0-97.0 HCO3 ARTERIAL (BEAKER) (test mszq=057) 23 mmol/L 21-29 BASE EXCESS ARTERIAL (BEAKER) (test donv=618) 0.7 mmol/L -2.0-3.0 PATIENT TEMPERATURE (BEAKER) (test vzuu=1980) 36.8 C FIO2 (BEAKER) (test tcht=8621) 40.0 % BLOOD GAS, [id number] 05:13:00 Test Item Value Reference Range Comments PH ARTERIAL (BEAKER) (test tgph=004) 7.46 7.35-7.45 PCO2 ARTERIAL (BEAKER) (test djmj=551) 37 mmHg 35-45 PO2 ARTERIAL (BEAKER) (test pmtf=664) 522 mmHg 80-90 O2 SATURATION ARTERIAL (BEAKER) (test buok=697) 99.9 % 96.0-97.0 HCO3 ARTERIAL (BEAKER) (test duat=068) 26 mmol/L 21-29 BASE EXCESS ARTERIAL (BEAKER) (test rekc=172) 1.6 mmol/L -2.0-3.0 PATIENT TEMPERATURE (BEAKER) (test ebqn=4155) 36.8 C FIO2 (BEAKER) (test scae=8406) 100.0 % [id number] 04:41:00 Test Item Value Reference Range Comments PARTIAL THROMBOPLASTIN TIME (BEAKER) (test 61.3 seconds 22.5-36.0 vqsm=755) RAD, CHEST, 1 VIEW, NON [id number] 04:38:00Reason for exam:->impella/ECMO /intubationShould this be performed at the bedside?->YesFINAL REPORT CLINICAL INDICATION: Support lines. Comparison: 01/12/2018 The cardiomediastinal contours are stable. Central pulmonary vascular prominence and bilateral parenchymalopacities are previous. There is no pneumothorax. Support lines are stable. Signed: Kellen Parra MDReport Verified Date/Time: 04:38:41 Reading Location: [address] Reading Room HEPATIC FUNCTION [id number] 04:25:00 Test Item Value Reference Range Comments TOTAL PROTEIN (BEAKER) (test rnwx=064) 5.0 gm/dL 6.0-8.3 ALBUMIN (BEAKER) (test nfeh=6550) 2.7 g/dL 3.5-5.0 BILIRUBIN TOTAL (BEAKER) (test wpvh=802) 4.6 mg/dL 0.2-1.2 BILIRUBIN DIRECT (BEAKER) (test nhgp=435) 3.6 mg/dL 0.1-0.5 ALKALINE PHOSPHATASE (BEAKER) (test ygqs=508) 43 U/L 40-150 AST (SGOT) (BEAKER) (test ewff=436) 2670 U/L 5-34 ALT (SGPT) (BEAKER) (test eaqk=477) 2232 U/L 6-55 Specimen slightly [id number] 04:19:00 Test Item Value Reference Range Comments PHOSPHORUS (BEAKER) (test enli=105) 4.1 mg/dL 2.3-4.7 [id number] 04:19:00 Test Item Value Reference Range Comments MAGNESIUM (BEAKER) (test gpcb=666) 1.9 mg/dL 1.6-2.6 [id number] 04:19:00 Test Item Value Reference Range Comments CALCIUM (BEAKER) (test tywm=954) 8.6 mg/dL 8.4-10.2 BASIC METABOLIC [id number] 04:19:00 Test Item Value Reference Range Comments SODIUM (BEAKER) (test 136 meq/L 136-145 reol=867) POTASSIUM (BEAKER) (test 4.2 meq/L 3.5-5.1 eywh=817) CHLORIDE (BEAKER) (test 102 meq/L 98-107 hovp=826) CO2 (BEAKER) (test 25 meq/L 22-29 uywf=139) BLOOD UREA NITROGEN 24 mg/dL 7-21 (BEAKER) (test jbdh=887) CREATININE (BEAKER) (test 1.80 mg/dL 0.57-1.25 otof=198) GLUCOSE RANDOM (BEAKER) 188 mg/dL 70-105 (test fnya=385) CALCIUM (BEAKER) (test 8.6 mg/dL 8.4-10.2 sqov=912) EGFR (BEAKER) (test 47 mL/min/1.73 sq m ESTIMATED GFR IS NOT mjnk=0415) ACCURATE CREATININE CLEARANCE IN PREDICTING GLOMERULAR FILTRATION RATE. ESTIMATED GFR IS NOT APPLICABLE FOR DIALYSIS PATIENTS. Specimen slightly ictericLACTATE DEHYDROGENASE (LDH)2018-01-13 04:19:00 Test Item Value Reference Range Comments LACTATE DEHYDROGENASE (BEAKER) (test anmd=804) 1658 U/L 125-220 [id number] 04:16:00 Test Item Value Reference Range Comments FIBRINOGEN LEVEL (BEAKER) (test ztdh=524) 299 mg/dl 225-434 LACTIC ACID, ARTERIAL, WHOLE [id number] 04:16:00 Test Item Value Reference Range Comments LACTATE BLOOD ARTERIAL (2) (BEAKER) (test 0.8 mmol/L 0.5-2.2 xpeo=3772) Effective 01/04/2016: Units/Reference Range ChangeNew: 0.5-2.2 mmol/L Previous: 5 -20 mg/dLSpecimen slightly ictericPROTHROMBIN TIME/[id number] 04:15:00 Test Item Value Reference Range Comments PROTIME (BEAKER) (test klkk=838) 15.8 seconds 11.7-14.7 INR (BEAKER) (test zqkm=072) 1.3 <=5.9 RECOMMENDED COUMADIN/WARFARIN INR THERAPY RANGESSTANDARD DOSE: 2.0 - 3.0 Includes: PROPHYLAXIS forvenous thrombosis, systemic embolization; TREATMENT for venous thrombosis and/or pulmonary embolus.HIGH RISK: Target INR is 2.5-3.5 for patients with mechanical heart valves.CALCIUM, [id number] 04:04:00 Test Item Value Reference Range Comments CALCIUM IONIZED (BEAKER) (test gshc=582) 1.15 mmol/L 1.12-1.27 PH, BLOOD (BEAKER) (test zyir=5169) 7.33 BLOOD GAS, [id number] 04:03:00 Test Item Value Reference Range Comments PH ARTERIAL (BEAKER) (test sref=296) 7.33 7.35-7.45 PCO2 ARTERIAL (BEAKER) (test uaxb=305) 55 mmHg 35-45 PO2 ARTERIAL (BEAKER) (test ygxl=577) 324 mmHg 80-90 O2 SATURATION ARTERIAL (BEAKER) (test xhsh=881) 99.7 % 96.0-97.0 HCO3 ARTERIAL (BEAKER) (test kdow=071) 28 mmol/L 21-29 BASE EXCESS ARTERIAL (BEAKER) (test ltkx=035) 1.8 mmol/L -2.0-3.0 PATIENT TEMPERATURE (BEAKER) (test gujk=0840) 36.8 C FIO2 (BEAKER) (test kipd=2118) 40.0 % PLATELET [id number] 03:58:00 Test Item Value Reference Range Comments PLATELET COUNT (BEAKER) (test idat=128) 89 K/CU MM 150-450 OXYGEN SATURATION, [id number] 03:57:00 Test Item Value Reference Range Comments O2 SATURATION (MEASURED) (BEAKER) (test ycwu=4755) 79.4 % BLOOD GAS, [id number] 01:19:00 Test Item Value Reference Range Comments PH ARTERIAL (BEAKER) (test dfck=102) 7.47 7.35-7.45 PCO2 ARTERIAL (BEAKER) (test npfy=546) 36 mmHg 35-45 PO2 ARTERIAL (BEAKER) (test drtm=901) 328 mmHg 80-90 O2 SATURATION ARTERIAL (BEAKER) (test cyrh=490) 99.8 % 96.0-97.0 HCO3 ARTERIAL (BEAKER) (test ezke=634) 26 mmol/L 21-29 BASE EXCESS ARTERIAL (BEAKER) (test idae=248) 1.8 mmol/L -2.0-3.0 PATIENT TEMPERATURE (BEAKER) (test jgsx=1262) 36.6 C FIO2 (BEAKER) (test jlyj=6374) 40.0 % GLUCOSE-STAT [id number] 01:19:00 Test Item Value Reference Range Comments GLUCOSE RANDOM (BEAKER) (test qlyr=536) 177 mg/dL 70-110 POTASSIUM-STAT [id number] 01:18:00 Test Item Value Reference Range Comments POTASSIUM (BEAKER) (test hesk=341) 4.0 meq/L 3.6-5.5 CALCIUM, [id number] 01:17:00 Test Item Value Reference Range Comments CALCIUM IONIZED (BEAKER) (test insy=208) 1.13 mmol/L 1.12-1.27 PH, BLOOD (BEAKER) (test xfks=1363) 7.46 THROMBOELASTOGRAPH (TEG)2018-01-12 20:40:00 Test Item Value Reference Range Comments TEG ACTIVATED CLOTTING TIME (BEAKER) (test 12.3 minutes 4.0-7.0 zucu=2191) TEG FIBRINOGEN ACTIVITY (BEAKER) (test 56.6 degrees 61.0-73.0 koye=8489) TEG PLT. AGGREGATION (BEAKER) (test rxwv=7489) 56.6 MM 55.0-65.0 TEG FIBRINOLYSIS (BEAKER) (test blrd=7347) 6.6 % 0.0-5.0 TGH ACTIVATED CLOTTING TIME (BEAKER) (test 6.4 minutes 4.0-7.0 rwko=0666) TGH FIBRINOGEN ACTIVITY (BEAKER) (test 71.3 degrees 61.0-73.0 rucx=7699) TGH PLT. AGGREGATION (BEAKER) (test rjxq=0026) 60.5 MM 55.0-65.0 TGH FIBRINOLYSIS (BEAKER) (test luky=8790) 0.0 % 0.0-5.0 [id number] 20:36:00 Test Item Value Reference Range Comments POTASSIUM (BEAKER) (test bzfq=594) 4.2 meq/L 3.5-5.1 [id number] 20:36:00 Test Item Value Reference Range Comments MAGNESIUM (BEAKER) (test hunz=014) 1.8 mg/dL 1.6-2.6 [id number] 20:36:00 Test Item Value Reference Range Comments PHOSPHORUS (BEAKER) (test uynx=358) 3.5 mg/dL 2.3-4.7 LACTIC ACID, ARTERIAL, WHOLE [id number] 20:33:00 Test Item Value Reference Range Comments LACTATE BLOOD ARTERIAL (2) (BEAKER) (test 0.8 mmol/L 0.5-2.2 opsu=9297) Effective 01/04/2016: Units/Reference Range ChangeNew: 0.5-2.2 mmol/L Previous: 5 -20 mg/dLSpecimen slightly ictericBLOOD GAS, [id number] 20:20:00 Test Item Value Reference Range Comments PH ARTERIAL (BEAKER) (test bbhs=024) 7.45 7.35-7.45 PCO2 ARTERIAL (BEAKER) (test bcvz=672) 39 mmHg 35-45 PO2 ARTERIAL (BEAKER) (test hzpk=635) 289 mmHg 80-90 O2 SATURATION ARTERIAL (BEAKER) (test fcol=988) 99.7 % 96.0-97.0 HCO3 ARTERIAL (BEAKER) (test xtli=750) 27 mmol/L 21-29 BASE EXCESS ARTERIAL (BEAKER) (test rrvg=708) 2.5 mmol/L -2.0-3.0 PATIENT TEMPERATURE (BEAKER) (test dnqe=7208) 36.8 C FIO2 (BEAKER) (test spla=7437) 40.0 % GLUCOSE-STAT [id number] 20:20:00 Test Item Value Reference Range Comments GLUCOSE RANDOM (BEAKER) (test lbfc=202) 180 mg/dL 70-110 [id number] 18:34:00 Test Item Value Reference Range Comments GLUCOSE RANDOM (BEAKER) (test ojql=221) 218 mg/dL 70-105 BLOOD GAS, [id number] 18:18:00 Test Item Value Reference Range Comments PH ARTERIAL (BEAKER) (test xbsz=459) 7.44 7.35-7.45 PCO2 ARTERIAL (BEAKER) (test rzfd=995) 40 mmHg 35-45 PO2 ARTERIAL (BEAKER) (test uybr=606) 321 mmHg 80-90 O2 SATURATION ARTERIAL (BEAKER) (test ppxj=725) 99.7 % 96.0-97.0 HCO3 ARTERIAL (BEAKER) (test xnei=507) 27 mmol/L 21-29 BASE EXCESS ARTERIAL (BEAKER) (test fvkl=496) 2.4 mmol/L -2.0-3.0 PATIENT TEMPERATURE (BEAKER) (test pouq=8684) 36.9 C FIO2 (BEAKER) (test frlx=0007) 40.0 % [id number] 17:12:00 Test Item Value Reference Range Comments PARTIAL THROMBOPLASTIN TIME (BEAKER) (test 54.1 seconds 22.5-36.0 epbn=269) [id number] 17:12:00 Test Item Value Reference Range Comments FIBRINOGEN LEVEL (BEAKER) (test ybqp=399) 285 mg/dl 225-434 PROTHROMBIN TIME/[id number] 17:10:00 Test Item Value Reference Range Comments PROTIME (BEAKER) (test ivgu=925) 19.8 seconds 11.7-14.7 INR (BEAKER) (test ajil=843) 1.7 <=5.9 RECOMMENDED COUMADIN/WARFARIN INR THERAPY RANGESSTANDARD DOSE: 2.0 - 3.0 Includes: PROPHYLAXIS forvenous thrombosis, systemic embolization; TREATMENT for venous thrombosis and/or pulmonary embolus.HIGH RISK: Target INR is 2.5-3.5 for patients with mechanical heart valves.LACTIC ACID, ARTERIAL, WHOLE [id number] 17:03:00 Test Item Value Reference Range Comments LACTATE BLOOD ARTERIAL (2) (BEAKER) (test 0.8 mmol/L 0.5-2.2 jium=8063) Effective 01/04/2016: Units/Reference Range ChangeNew: 0.5-2.2 mmol/L Previous: 5 -20 mg/dLSpecimen slightly [id number] 17:01:00 Test Item Value Reference Range Comments POTASSIUM (BEAKER) (test hbdp=945) 4.5 meq/L 3.5-5.1 [id number] 17:01:00 Test Item Value Reference Range Comments GLUCOSE RANDOM (BEAKER) (test dcxn=700) 239 mg/dL 70-105 PLATELET [id number] 16:46:00 Test Item Value Reference Range Comments PLATELET COUNT (BEAKER) (test mxml=122) 86 K/CU MM 150-450 BLOOD GAS, [id number] 16:36:00 Test Item Value Reference Range Comments PH ARTERIAL (BEAKER) (test uddt=643) 7.46 7.35-7.45 PCO2 ARTERIAL (BEAKER) (test hgvf=141) 39 mmHg 35-45 PO2 ARTERIAL (BEAKER) (test sfwa=995) 256 mmHg 80-90 O2 SATURATION ARTERIAL (BEAKER) (test wzdv=004) 99.6 % 96.0-97.0 HCO3 ARTERIAL (BEAKER) (test guow=855) 27 mmol/L 21-29 BASE EXCESS ARTERIAL (BEAKER) (test ahek=980) 3.2 mmol/L -2.0-3.0 PATIENT TEMPERATURE (BEAKER) (test uouv=9127) 37.0 C CALCIUM, [id number] 16:36:00 Test Item Value Reference Range Comments CALCIUM IONIZED (BEAKER) (test ujnh=780) 1.08 mmol/L 1.12-1.27 PH, BLOOD (BEAKER) (test ulwn=7699) 7.46 [id number] 15:00:00 Test Item Value Reference Range Comments POTASSIUM (BEAKER) (test gdkv=885) 4.7 meq/L 3.5-5.1 [id number] 15:00:00 Test Item Value Reference Range Comments GLUCOSE RANDOM (BEAKER) (test dfuw=292) 210 mg/dL 70-105 BLOOD GAS, [id number] 14:42:00 Test Item Value Reference Range Comments PH ARTERIAL (BEAKER) (test wmuk=150) 7.45 7.35-7.45 PCO2 ARTERIAL (BEAKER) (test euac=418) 41 mmHg 35-45 PO2 ARTERIAL (BEAKER) (test sqjw=579) 308 mmHg 80-90 O2 SATURATION ARTERIAL (BEAKER) (test qord=208) 99.7 % 96.0-97.0 HCO3 ARTERIAL (BEAKER) (test baoo=893) 28 mmol/L 21-29 BASE EXCESS ARTERIAL (BEAKER) (test rwhg=812) 3.7 mmol/L -2.0-3.0 PATIENT TEMPERATURE (BEAKER) (test vsji=0230) 36.8 C FIO2 (BEAKER) (test gwjf=8796) 40.0 % RAD, CHEST, 1 VIEW, NON [id number] 14:41:00Reason for exam:->chest tube insertionFINAL REPORT CHEST [...] prosthetic cardiac valve is present. Signed: Kay Wilkersonepdamion Verified Date/Time: 14:41:22 Reading Location: [address] Transitional Reading Room THROMBOELASTOGRAPH (TEG)2018-01-12 12:43:00 Test Item Value Reference Range Comments TEG ACTIVATED CLOTTING TIME (BEAKER) (test 30.7 minutes 4.0-7.0 dswt=4966) TEG FIBRINOGEN ACTIVITY (BEAKER) (test 23.3 degrees 61.0-73.0 mmlo=0409) TEG PLT. AGGREGATION (BEAKER) (test cbvf=1031) 54.6 MM 55.0-65.0 TEG FIBRINOLYSIS (BEAKER) (test zwgv=6620) 0.0 % 0.0-5.0 TGH ACTIVATED CLOTTING TIME (BEAKER) (test 11.6 minutes 4.0-7.0 nwbn=7189) TGH FIBRINOGEN ACTIVITY (BEAKER) (test 58.6 degrees 61.0-73.0 wjdg=6141) TGH PLT. AGGREGATION (BEAKER) (test hxop=6191) 52.2 MM 55.0-65.0 TGH FIBRINOLYSIS (BEAKER) (test gyqs=9006) 0.0 % 0.0-5.0 [id number] 11:23:00 Test Item Value Reference Range Comments D-DIMER QUANTITATIVE (BEAKER) (test ycgd=850) 1.67 MG/L FEU <0.50 Intended Use: The D-Dimer Assay can be used to aid in the diagnosis of Deep Vein Thrombosis (DVT) and Pulmonary Embolism Disease (PED).In patients with low pre-test probability, various studies concerning STA Liatest D-dimer test have reported that with a cutoff value of 0.50 MG/L FEU, the Negative Predictive Value (NPV) regarding the exclusion of thrombosis is within 95-100% range.[id number] 10:10:00 Test Item Value Reference Range Comments MAGNESIUM (BEAKER) (test 2.1 mg/dL 1.6-2.6 Specimen slightly hemolyzed wgoy=514) [id number] 10:10:00 Test Item Value Reference Range Comments PHOSPHORUS (BEAKER) (test 4.2 mg/dL 2.3-4.7 Specimen slightly hemolyzed qpml=796) [id number] 10:10:00 Test Item Value Reference Range Comments POTASSIUM (BEAKER) (test 5.0 meq/L 3.5-5.1 Specimen slightly hemolyzed hhat=814) [id number] 10:10:00 Test Item Value Reference Range Comments GLUCOSE RANDOM (BEAKER) (test doar=914) 204 mg/dL 70-105 [id number] 10:07:00 Test Item Value Reference Range Comments FIBRINOGEN LEVEL (BEAKER) (test orli=375) 251 mg/dl 225-434 ANTITHROMBIN [id number] 10:04:00 Test Item Value Reference Range Comments ANTITHROMBIN III ACTIVITY (BEAKER) (test fkdi=789) 46.0 % 80.0-120.0 [id number] 09:58:00 Test Item Value Reference Range Comments PARTIAL THROMBOPLASTIN TIME (BEAKER) (test 59.8 seconds 22.5-36.0 qicj=928) PROTHROMBIN TIME/[id number] 09:57:00 Test Item Value Reference Range Comments PROTIME (BEAKER) (test wedw=567) 19.3 seconds 11.7-14.7 INR (BEAKER) (test tooa=761) 1.6 <=5.9 RECOMMENDED COUMADIN/WARFARIN INR THERAPY RANGESSTANDARD DOSE: 2.0 - 3.0 Includes: PROPHYLAXIS forvenous thrombosis, systemic embolization; TREATMENT for venous thrombosis and/or pulmonary embolus.HIGH RISK: Target INR is 2.5-3.5 for patients with mechanical heart valves.PLATELET [id number] 09:49:00 Test Item Value Reference Range Comments PLATELET COUNT (BEAKER) (test adhw=285) 94 K/CU MM 150-450 BLOOD GAS, [id number] 09:47:00 Test Item Value Reference Range Comments PH ARTERIAL (BEAKER) (test tdko=251) 7.47 7.35-7.45 PCO2 ARTERIAL (BEAKER) (test wndh=335) 38 mmHg 35-45 PO2 ARTERIAL (BEAKER) (test vdkc=891) 259 mmHg 80-90 O2 SATURATION ARTERIAL (BEAKER) (test pyyy=677) 99.6 % 96.0-97.0 HCO3 ARTERIAL (BEAKER) (test gerb=116) 27 mmol/L 21-29 BASE EXCESS ARTERIAL (BEAKER) (test rpfz=396) 3.2 mmol/L -2.0-3.0 PATIENT TEMPERATURE (BEAKER) (test oexg=9446) 36.9 C FIO2 (BEAKER) (test kieb=1879) 40.0 % CALCIUM, [id number] 09:46:00 Test Item Value Reference Range Comments CALCIUM IONIZED (BEAKER) (test nuia=581) 1.12 mmol/L 1.12-1.27 PH, BLOOD (BEAKER) (test zwyz=9199) 7.47 HEPARIN ASSAY - [id number] 08:21:00 Test Item Value Reference Range Comments UNFRACTIONATED HEPARIN-ANTI 10A (BEAKER) (test < u/ml 0.30-0.70 wpyb=2225) Recommendations for Monitoring Unfractionated Heparin Therapeutic Range: 0.3- 0.7 u/mL with continuous IV infusionLACTATE DEHYDROGENASE (LDH)2018-01-12 07:40: 00 Test Item Value Reference Range Comments LACTATE DEHYDROGENASE (BEAKER) (test ykpz=741) 3247 U/L 125-220 [id number] 07:38:00 Test Item Value Reference Range Comments MAGNESIUM (BEAKER) (test yyzk=313) 2.3 mg/dL 1.6-2.6 [id number] 07:38:00 Test Item Value Reference Range Comments GLUCOSE RANDOM (BEAKER) (test ooxg=899) 217 mg/dL 70-105 LACTIC ACID, ARTERIAL, WHOLE [id number] 07:27:00 Test Item Value Reference Range Comments LACTATE BLOOD ARTERIAL (2) (BEAKER) (test 1.4 mmol/L 0.5-2.2 hpxh=0611) Effective 01/04/2016: Units/Reference Range ChangeNew: 0.5-2.2 mmol/L Previous: 5 -20 mg/dLSpecimen slightly ictericGLUCOSE-STAT [id number] 06:55:00 Test Item Value Reference Range Comments GLUCOSE RANDOM (BEAKER) (test xeoo=742) 212 mg/dL 70-110 BLOOD GAS, [id number] 06:55:00 Test Item Value Reference Range Comments PH ARTERIAL (BEAKER) (test wozt=131) 7.44 7.35-7.45 PCO2 ARTERIAL (BEAKER) (test goek=468) 40 mmHg 35-45 PO2 ARTERIAL (BEAKER) (test sbcs=588) 259 mmHg 80-90 O2 SATURATION ARTERIAL (BEAKER) (test airt=871) 99.6 % 96.0-97.0 HCO3 ARTERIAL (BEAKER) (test iuon=874) 26 mmol/L 21-29 BASE EXCESS ARTERIAL (BEAKER) (test jymk=730) 2.1 mmol/L -2.0-3.0 PATIENT TEMPERATURE (BEAKER) (test zzqy=1441) 36.7 C FIO2 (BEAKER) (test qchm=3022) 40.0 % POTASSIUM-STAT [id number] 06:52:00 Test Item Value Reference Range Comments POTASSIUM (BEAKER) (test pgtq=475) 4.8 meq/L 3.6-5.5 BLOOD GAS, [id number] 06:43:00 Test Item Value Reference Range Comments PH ARTERIAL (BEAKER) (test bkwg=272) 7.33 7.35-7.45 PCO2 ARTERIAL (BEAKER) (test wgpi=228) 55 mmHg 35-45 PO2 ARTERIAL (BEAKER) (test yugg=582) 475 mmHg 80-90 O2 SATURATION ARTERIAL (BEAKER) (test ivev=733) 99.8 % 96.0-97.0 HCO3 ARTERIAL (BEAKER) (test crsl=218) 28 mmol/L 21-29 BASE EXCESS ARTERIAL (BEAKER) (test inys=224) 0.8 mmol/L -2.0-3.0 PATIENT TEMPERATURE (BEAKER) (test nepu=3037) 36.7 C FIO2 (BEAKER) (test ngay=7610) 100.0 % RAD, CHEST, 1 VIEW, NON [id number] 06:14:00Reason for exam:->impella/ECMO /intubationShould this be performed [...] Taylor Verified Date/Time: 01/12/2018 06:14:29 Reading Location: [address] Transitional Reading Room LACTATE DEHYDROGENASE (LDH)01-12 05:03:00 Test Item Value Reference Range Comments LACTATE DEHYDROGENASE (BEAKER) (test ohzs=068) 3014 U/L 125-220 HEPATIC FUNCTION [id number] 05:03:00 Test Item Value Reference Range Comments TOTAL PROTEIN (BEAKER) (test lbgg=579) 4.8 gm/dL 6.0-8.3 ALBUMIN (BEAKER) (test kyyf=9337) 2.7 g/dL 3.5-5.0 BILIRUBIN TOTAL (BEAKER) (test tyia=491) 4.3 mg/dL 0.2-1.2 BILIRUBIN DIRECT (BEAKER) (test uell=154) 3.2 mg/dL 0.1-0.5 ALKALINE PHOSPHATASE (BEAKER) (test mamu=761) 43 U/L 40-150 AST (SGOT) (BEAKER) (test ovhl=821) 2716 U/L 5-34 ALT (SGPT) (BEAKER) (test ajiq=140) 1544 U/L 6-55 Specimen slightly [id number] 05:01:00 Test Item Value Reference Range Comments PHOSPHORUS (BEAKER) (test igyg=008) 5.0 mg/dL 2.3-4.7 [id number] 05:01:00 Test Item Value Reference Range Comments MAGNESIUM (BEAKER) (test yeqe=172) 2.1 mg/dL 1.6-2.6 [id number] 05:01:00 Test Item Value Reference Range Comments CALCIUM (BEAKER) (test usuz=455) 8.5 mg/dL 8.4-10.2 BASIC METABOLIC [id number] 05:01:00 Test Item Value Reference Range Comments SODIUM (BEAKER) (test 137 meq/L 136-145 mgxj=141) POTASSIUM (BEAKER) (test 5.1 meq/L 3.5-5.1 micj=653) CHLORIDE (BEAKER) (test 103 meq/L 98-107 phvv=083) CO2 (BEAKER) (test 24 meq/L 22-29 xgwd=799) BLOOD UREA NITROGEN 25 mg/dL 7-21 (BEAKER) (test ihsm=038) CREATININE (BEAKER) (test 2.54 mg/dL 0.57-1.25 cpeq=539) GLUCOSE RANDOM (BEAKER) 208 mg/dL 70-105 (test oski=186) CALCIUM (BEAKER) (test 8.5 mg/dL 8.4-10.2 qupy=147) EGFR (BEAKER) (test 32 mL/min/1.73 sq m ESTIMATED GFR IS NOT eayn=1261) ACCURATE CREATININE CLEARANCE IN PREDICTING GLOMERULAR FILTRATION RATE. ESTIMATED GFR IS NOT APPLICABLE FOR DIALYSIS PATIENTS. Specimen slightly ictericLACTIC ACID, ARTERIAL, WHOLE [id number] 04:42:00 Test Item Value Reference Range Comments LACTATE BLOOD ARTERIAL (2) (BEAKER) (test 1.5 mmol/L 0.5-2.2 pevz=4165) Effective 01/04/2016: Units/Reference Range ChangeNew: 0.5-2.2 mmol/L Previous: 5 -20 mg/dLSpecimen slightly [id number] 04:38:00 Test Item Value Reference Range Comments FIBRINOGEN LEVEL (BEAKER) (test xmqp=927) 252 mg/dl 225-434 [id number] 04:38:00 Test Item Value Reference Range Comments PARTIAL THROMBOPLASTIN TIME (BEAKER) (test 54.6 seconds 22.5-36.0 dmfd=438) CBC W/PLT COUNT & AUTO [id number] 04:37:00 Test Item Value Reference Range Comments WHITE BLOOD CELL COUNT (BEAKER) (test bsad=237) 10.9 K/ L 3.5-10.5 RED BLOOD CELL COUNT (BEAKER) (test kkwu=881) 2.74 M/ L 4.63-6.08 HEMOGLOBIN (BEAKER) (test ywzu=753) 8.7 GM/DL 13.7-17.5 HEMATOCRIT (BEAKER) (test sjjs=458) 25.8 % 40.1-51.0 MEAN CORPUSCULAR VOLUME (BEAKER) (test mwhe=184) 94.2 fL 79.0-92.2 MEAN CORPUSCULAR HEMOGLOBIN (BEAKER) (test 31.8 pg 25.7-32.2 kmfd=384) MEAN CORPUSCULAR HEMOGLOBIN CONC (BEAKER) (test 33.7 GM/DL 32.3-36.5 zswz=676) RED CELL DISTRIBUTION WIDTH (BEAKER) (test 18.6 % 11.6-14.4 ybmj=018) PLATELET COUNT (BEAKER) (test jjet=177) 110 K/CU MM 150-450 MEAN PLATELET VOLUME (BEAKER) (test qesl=059) 11.8 fL 9.4-12.4 NUCLEATED RED BLOOD CELLS (BEAKER) (test 3 /100 WBC 0-0 tioi=520) NEUTROPHILS RELATIVE PERCENT (BEAKER) (test 91 % xnkf=476) LYMPHOCYTES RELATIVE PERCENT (BEAKER) (test 3 % itnm=394) MONOCYTES RELATIVE PERCENT (BEAKER) (test 5 % vnmc=892) EOSINOPHILS RELATIVE PERCENT (BEAKER) (test 0 % oopa=681) BASOPHILS RELATIVE PERCENT (BEAKER) (test 0 % vekc=285) NEUTROPHILS ABSOLUTE COUNT (BEAKER) (test 9.98 K/ L 1.78-5.38 herj=391) LYMPHOCYTES ABSOLUTE COUNT (BEAKER) (test 0.31 K/ L 1.32-3.57 ncju=892) MONOCYTES ABSOLUTE COUNT (BEAKER) (test 0.55 K/ L 0.30-0.82 sboi=163) EOSINOPHILS ABSOLUTE COUNT (BEAKER) (test 0.00 K/ L 0.04-0.54 sjhj=901) BASOPHILS ABSOLUTE COUNT (BEAKER) (test 0.02 K/ L 0.01-0.08 eqnl=961) IMMATURE GRANULOCYTES-RELATIVE PERCENT (BEAKER) 1 % 0-1 (test rffx=9291) PROTHROMBIN TIME/[id number] 04:37:00 Test Item Value Reference Range Comments PROTIME (BEAKER) (test vwqy=691) 19.9 seconds 11.7-14.7 INR (BEAKER) (test kcar=273) 1.7 <=5.9 RECOMMENDED COUMADIN/WARFARIN INR THERAPY RANGESSTANDARD DOSE: 2.0 - 3.0 Includes: PROPHYLAXIS forvenous thrombosis, systemic embolization; TREATMENT for venous thrombosis and/or pulmonary embolus.HIGH RISK: Target INR is 2.5-3.5 for patients with mechanical heart valves.CALCIUM, [id number] 04:31:00 Test Item Value Reference Range Comments CALCIUM IONIZED (BEAKER) (test vjjz=824) 1.12 mmol/L 1.12-1.27 PH, BLOOD (BEAKER) (test mvne=4448) 7.42 BLOOD GAS, [id number] 04:30:00 Test Item Value Reference Range Comments PH ARTERIAL (BEAKER) (test mdyx=827) 7.42 7.35-7.45 PCO2 ARTERIAL (BEAKER) (test qwui=428) 41 mmHg 35-45 PO2 ARTERIAL (BEAKER) (test seum=969) 226 mmHg 80-90 O2 SATURATION ARTERIAL (BEAKER) (test lhuk=928) 99.5 % 96.0-97.0 HCO3 ARTERIAL (BEAKER) (test xeab=787) 26 mmol/L 21-29 BASE EXCESS ARTERIAL (BEAKER) (test usqu=259) 1.6 mmol/L -2.0-3.0 PATIENT TEMPERATURE (BEAKER) (test ezhi=8321) 36.8 C FIO2 (BEAKER) (test bodo=3934) 40.0 % PLATELET [id number] 04:23:00 Test Item Value Reference Range Comments PLATELET COUNT (BEAKER) (test klrg=969) 110 K/CU MM 150-450 OXYGEN SATURATION, [id number] 04:14:00 Test Item Value Reference Range Comments O2 SATURATION (MEASURED) (BEAKER) (test rdzn=8226) 79.7 % [id number] 02:54:00 Test Item Value Reference Range Comments PARTIAL THROMBOPLASTIN TIME (BEAKER) (test 134.3 seconds 22.5-36.0 ngwp=248) [id number] 02:25:00 Test Item Value Reference Range Comments PARTIAL THROMBOPLASTIN TIME (BEAKER) (test 94.0 seconds 22.5-36.0 rkbs=338) BLOOD GAS, [id number] 01:56:00 Test Item Value Reference Range Comments PH ARTERIAL (BEAKER) (test cgzn=595) 7.61 7.35-7.45 PCO2 ARTERIAL (BEAKER) (test edgt=224) 25 mmHg 35-45 PO2 ARTERIAL (BEAKER) (test uupm=470) 209 mmHg 80-90 O2 SATURATION ARTERIAL (BEAKER) (test qkbg=212) 99.6 % 96.0-97.0 HCO3 ARTERIAL (BEAKER) (test utfd=050) 25 mmol/L 21-29 BASE EXCESS ARTERIAL (BEAKER) (test iwbn=283) 3.4 mmol/L -2.0-3.0 PATIENT TEMPERATURE (BEAKER) (test ystp=5953) 36.5 C FIO2 (BEAKER) (test xqee=5344) 40.0 % GLUCOSE-STAT [id number] 01:53:00 Test Item Value Reference Range Comments GLUCOSE RANDOM (BEAKER) (test fzax=079) 201 mg/dL 70-110 POTASSIUM-STAT [id number] 01:52:00 Test Item Value Reference Range Comments POTASSIUM (BEAKER) (test eqnf=683) 4.9 meq/L 3.6-5.5 LACTIC ACID, ARTERIAL, WHOLE [id number] 01:18:00 Test Item Value Reference Range Comments LACTATE BLOOD ARTERIAL (2) (BEAKER) (test 2.0 mmol/L 0.5-2.2 hslt=8414) Effective 01/04/2016: Units/Reference Range ChangeNew: 0.5-2.2 mmol/L Previous: 5 -20 mg/dLSpecimen slightly [id number] 01:18:00 Test Item Value Reference Range Comments POTASSIUM (BEAKER) (test wfet=725) 5.1 meq/L 3.5-5.1 [id number] 01:18:00 Test Item Value Reference Range Comments GLUCOSE RANDOM (BEAKER) (test uhvx=715) 194 mg/dL 70-105 PROTHROMBIN [id number] 01:15:00 Test Item Value Reference Range Comments PROTIME (BEAKER) (test qklj=769) 21.2 seconds 11.7-14.7 INR (BEAKER) (test gveb=497) 1.8 <=5.9 RECOMMENDED COUMADIN/WARFARIN INR THERAPY RANGESSTANDARD DOSE: 2.0 - 3.0 Includes: PROPHYLAXIS forvenous thrombosis, systemic embolization; TREATMENT for venous thrombosis and/or pulmonary embolus.HIGH RISK: Target INR is 2.5-3.5 for patients with mechanical heart valves.[id number] 01:15:00 Test Item Value Reference Range Comments FIBRINOGEN LEVEL (BEAKER) (test sfnm=338) 233 mg/dl 225-434 PLATELET [id number] 01:01:00 Test Item Value Reference Range Comments PLATELET COUNT (BEAKER) (test tbii=335) 84 K/CU MM 150-450 BLOOD GAS, [id number] 01:00:00 Test Item Value Reference Range Comments PH ARTERIAL (BEAKER) (test poht=519) 7.43 7.35-7.45 PCO2 ARTERIAL (BEAKER) (test izgr=065) 40 mmHg 35-45 PO2 ARTERIAL (BEAKER) (test sdyb=324) 285 mmHg 80-90 O2 SATURATION ARTERIAL (BEAKER) (test xgob=195) 99.7 % 96.0-97.0 HCO3 ARTERIAL (BEAKER) (test mbqo=054) 26 mmol/L 21-29 BASE EXCESS ARTERIAL (BEAKER) (test gjdk=224) 1.7 mmol/L -2.0-3.0 PATIENT TEMPERATURE (BEAKER) (test jcpj=1268) 36.7 C FIO2 (BEAKER) (test vxcy=0374) 40.0 % CALCIUM, [id number] 01:00:00 Test Item Value Reference Range Comments CALCIUM IONIZED (BEAKER) (test smyt=677) 1.08 mmol/L 1.12-1.27 PH, BLOOD (BEAKER) (test uxbu=5198) 7.43 THROMBOELASTOGRAPH (TEG)2018-01-12 00:01:00 Test Item Value Reference Range Comments TEG ACTIVATED CLOTTING TIME (BEAKER) minutes 4.0-7.0 No clot detected (test qbuz=7473) TGH ACTIVATED CLOTTING TIME (BEAKER) 13.3 minutes 4.0-7.0 (test gdha=8283) [facility] FIBRINOGEN ACTIVITY (BEAKER) (test 44.7 degrees 61.0-73.0 lglq=0128) [facility] PLT. AGGREGATION (BEAKER) (test 46.3 MM 55.0-65.0 qncl=0630) [facility] FIBRINOLYSIS (BEAKER) (test 0.0 % 0.0-5.0 xirr=4352) GLUCOSE-STAT [id number] 23:53:00 Test Item Value Reference Range Comments GLUCOSE RANDOM (BEAKER) (test npsx=745) 182 mg/dL 70-110 BLOOD GAS, [id number] 23:52:00 Test Item Value Reference Range Comments PH ARTERIAL (BEAKER) (test ocbg=681) 7.52 7.35-7.45 PCO2 ARTERIAL (BEAKER) (test ncdf=465) 31 mm Hg 35-45 PO2 ARTERIAL (BEAKER) (test btaf=900) 280 mm Hg 80-90 O2 SATURATION ARTERIAL (BEAKER) (test uoco=046) 99.7 % 96.0-97.0 HCO3 ARTERIAL (BEAKER) (test qicy=393) 25 mmol/L 21-29 BASE EXCESS ARTERIAL (BEAKER) (test stxd=405) 2.3 mmol/L -2.0-3.0 PATIENT TEMPERATURE (BEAKER) (test fqdm=8451) 36.7 FIO2 (BEAKER) (test elyb=3553) 40 [id number] 23:05:00 Test Item Value Reference Range Comments PARTIAL THROMBOPLASTIN TIME (BEAKER) (test > seconds 22.5-36.0 vzne=001) BLOOD GAS, [id number] 23:01:00 Test Item Value Reference Range Comments PH ARTERIAL (BEAKER) (test ufle=044) 7.42 7.35-7.45 PCO2 ARTERIAL (BEAKER) (test qwnp=534) 44 mmHg 35-45 PO2 ARTERIAL (BEAKER) (test sjhi=006) 541 mmHg 80-90 O2 SATURATION ARTERIAL (BEAKER) (test qgco=224) 99.9 % 96.0-97.0 HCO3 ARTERIAL (BEAKER) (test punf=520) 28 mmol/L 21-29 BASE EXCESS ARTERIAL (BEAKER) (test qain=426) 2.6 mmol/L -2.0-3.0 PATIENT TEMPERATURE (BEAKER) (test kdkt=9539) 37.0 C FIO2 (BEAKER) (test swhu=0251) 100.0 % [id number] 22:46:00 Test Item Value Reference Range Comments FIBRINOGEN LEVEL (BEAKER) (test luwt=264) 223 mg/dl 225-434 PROTHROMBIN [id number] 22:45:00 Test Item Value Reference Range Comments PROTIME (BEAKER) (test ocyq=781) 23.0 seconds 11.7-14.7 INR (BEAKER) (test ykga=298) 2.0 <=5.9 RECOMMENDED COUMADIN/WARFARIN INR THERAPY RANGESSTANDARD DOSE: 2.0 - 3.0 Includes: PROPHYLAXIS forvenous thrombosis, systemic embolization; TREATMENT for venous thrombosis and/or pulmonary embolus.HIGH RISK: Target INR is 2.5-3.5 for patients with mechanical heart valves.BLOOD GAS, [id number] 22:22:00 Test Item Value Reference Range Comments PH ARTERIAL (BEAKER) (test dpns=284) 7.67 7.35-7.45 PCO2 ARTERIAL (BEAKER) (test aisg=282) 20 mmHg 35-45 PO2 ARTERIAL (BEAKER) (test mfvc=633) 261 mmHg 80-90 O2 SATURATION ARTERIAL (BEAKER) (test odvr=708) 99.8 % 96.0-97.0 HCO3 ARTERIAL (BEAKER) (test ttqn=603) 23 mmol/L 21-29 BASE EXCESS ARTERIAL (BEAKER) (test sasy=254) 2.6 mmol/L -2.0-3.0 PATIENT TEMPERATURE (BEAKER) (test byxu=8374) 35.8 C FIO2 (BEAKER) (test yptu=5321) 40.0 % CALCIUM, [id number] 22:21:00 Test Item Value Reference Range Comments CALCIUM IONIZED (BEAKER) (test hemj=956) 1.05 mmol/L 1.12-1.27 PH, BLOOD (BEAKER) (test wzui=5136) 7.67 PLATELET [id number] 22:21:00 Test Item Value Reference Range Comments PLATELET COUNT (BEAKER) (test vcmq=844) 71 K/CU MM 150-450 GLUCOSE-STAT [id number] 22:20:00 Test Item Value Reference Range Comments GLUCOSE RANDOM (BEAKER) (test cvvy=500) 189 mg/dL 70-110 POTASSIUM-STAT [id number] 22:19:00 Test Item Value Reference Range Comments POTASSIUM (BEAKER) (test ydyi=360) 5.1 meq/L 3.6-5.5 THROMBOELASTOGRAPH (TEG)2018-01-11 21:07:00 Test Item Value Reference Range Comments TEG ACTIVATED CLOTTING TIME (BEAKER) minutes 4.0-7.0 No clot detected. (test egwl=3432) TEG FIBRINOGEN ACTIVITY (BEAKER) (test degrees 61.0-73.0 No clot detected. ujje=1472) TEG PLT. AGGREGATION (BEAKER) (test MM 55.0-65.0 No clot detected. mtou=2478) TEG FIBRINOLYSIS (BEAKER) (test % 0.0-5.0 No clot detected. vkgl=2586) TGH ACTIVATED CLOTTING TIME (BEAKER) 15.3 minutes 4.0-7.0 (test npix=0466) TGH FIBRINOGEN ACTIVITY (BEAKER) (test 42.8 degrees 61.0-73.0 oeiy=5601) TGH PLT. AGGREGATION (BEAKER) (test 43.9 MM 55.0-65.0 osau=6139) TGH FIBRINOLYSIS (BEAKER) (test 0.0 % 0.0-5.0 fuan=1013) LACTATE DEHYDROGENASE (LDH)2018-01-11 20:57:00 Test Item Value Reference Range Comments LACTATE DEHYDROGENASE (BEAKER) (test uqid=433) 2133 U/L 125-220 [id number] 20:55:00 Test Item Value Reference Range Comments POTASSIUM (BEAKER) (test elyr=197) 5.4 meq/L 3.5-5.1 [id number] 20:55:00 Test Item Value Reference Range Comments MAGNESIUM (BEAKER) (test mlgo=771) 1.6 mg/dL 1.6-2.6 [id number] 20:55:00 Test Item Value Reference Range Comments PHOSPHORUS (BEAKER) (test tjdw=347) 2.9 mg/dL 2.3-4.7 GLUCOSE-STAT [id number] 20:31:00 Test Item Value Reference Range Comments GLUCOSE RANDOM (BEAKER) (test iuno=759) 166 mg/dL 70-110 POTASSIUM-STAT [id number] 20:30:00 Test Item Value Reference Range Comments POTASSIUM (BEAKER) (test zvcs=626) 5.2 meq/L 3.6-5.5 BLOOD GAS, [id number] 20:30:00 Test Item Value Reference Range Comments PH ARTERIAL (BEAKER) (test hlgr=386) 7.59 7.35-7.45 PCO2 ARTERIAL (BEAKER) (test nmrz=873) 24 mmHg 35-45 PO2 ARTERIAL (BEAKER) (test tzmk=367) 151 mmHg 80-90 O2 SATURATION ARTERIAL (BEAKER) (test woyu=766) 99.3 % 96.0-97.0 HCO3 ARTERIAL (BEAKER) (test gajf=138) 23 mmol/L 21-29 BASE EXCESS ARTERIAL (BEAKER) (test xwpj=472) 1.6 mmol/L -2.0-3.0 PATIENT TEMPERATURE (BEAKER) (test gzhc=8506) 36.5 C FIO2 (BEAKER) (test zcxe=7336) 40.0 % OXYGEN SATURATION, [id number] 18:46:00 Test Item Value Reference Range Comments O2 SATURATION (MEASURED) (BEAKER) (test ujpd=7248) 81.5 % RAD, CHEST, 1 VIEW, NON [id number] 18:27:00Reason for exam:->impella/ ECMO placementShould this be [...] Verified Date/ Time: 01/11/2018 18:27:33 Reading Location: [facility] B1 [id number] Ortho Consult Reading Room 06: 27 [id number] 18:11:00 Test Item Value Reference Range Comments PARTIAL THROMBOPLASTIN TIME (BEAKER) (test > seconds 22.5-36.0 gyab=374) LACTATE DEHYDROGENASE (LDH)2018-01-11 18:09:00 Test Item Value Reference Range Comments LACTATE DEHYDROGENASE (BEAKER) 1590 U/L 125-220 Specimen slightly hemolyzed (test zabq=899) BASIC METABOLIC [id number] 18:08:00 Test Item Value Reference Range Comments SODIUM (BEAKER) (test 139 meq/L 136-145 alhs=931) POTASSIUM (BEAKER) (test 6.5 meq/L 3.5-5.1 Specimen slightly syfn=298) hemolyzed CHLORIDE (BEAKER) (test 106 meq/L 98-107 htmz=878) CO2 (BEAKER) (test 15 meq/L 22-29 mtke=057) BLOOD UREA NITROGEN 27 mg/dL 7-21 (BEAKER) (test spvn=740) CREATININE (BEAKER) (test 3.65 mg/dL 0.57-1.25 Specimen slightly rfyv=031) hemolyzed GLUCOSE RANDOM (BEAKER) 162 mg/dL 70-105 (test zskf=663) CALCIUM (BEAKER) (test 8.8 mg/dL 8.4-10.2 usxv=790) EGFR (BEAKER) (test 21 mL/min/1.73 sq m ESTIMATED GFR IS NOT yokg=2372) ACCURATE CREATININE CLEARANCE IN PREDICTING GLOMERULAR FILTRATION RATE. ESTIMATED GFR IS NOT APPLICABLE FOR DIALYSIS PATIENTS. [id number] 17:54:00 Test Item Value Reference Range Comments MAGNESIUM (BEAKER) (test 1.8 mg/dL 1.6-2.6 Specimen slightly hemolyzed gdjv=196) [id number] 17:54:00 Test Item Value Reference Range Comments PHOSPHORUS (BEAKER) (test 4.6 mg/dL 2.3-4.7 Specimen slightly hemolyzed oljt=057) LACTIC ACID, ARTERIAL, WHOLE [id number] 17:53:00 Test Item Value Reference Range Comments LACTATE BLOOD ARTERIAL (2) 10.8 mmol/L 0.5-2.2 Specimen slightly hemolyzed (BEAKER) (test null=1335) Effective 01/04/2016: Units/Reference Range ChangeNew: 0.5-2.2 mmol/L Previous: 5 -20 mg/lRH-[id number] 17:46:00 Test Item Value Reference Range Comments D-DIMER QUANTITATIVE (BEAKER) (test gixl=491) 0.82 MG/L FEU <0.50 Intended Use: The D-Dimer Assay can be used to aid in the diagnosis of Deep Vein Thrombosis (DVT) and Pulmonary Embolism Disease (PED).In patients with low pre-test probability, various studies concerning STA Liatest D-dimer test have reported that with a cutoff value of 0.50 MG/L FEU, the Negative Predictive Value (NPV) regarding the exclusion of thrombosis is within 95-100% range.[id number] 17:46:00 Test Item Value Reference Range Comments FIBRINOGEN LEVEL (BEAKER) (test mmqh=250) 201 mg/dl 225-434 PROTHROMBIN [id number] 17:45:00 Test Item Value Reference Range Comments PROTIME (BEAKER) (test nrja=800) 24.4 seconds 11.7-14.7 INR (BEAKER) (test offi=532) 2.2 <=5.9 RECOMMENDED COUMADIN/WARFARIN INR THERAPY RANGESSTANDARD DOSE: 2.0 - 3.0 Includes: PROPHYLAXIS forvenous thrombosis, systemic embolization; TREATMENT for venous thrombosis and/or pulmonary embolus.HIGH RISK: Target INR is 2.5-3.5 for patients with mechanical heart valves.BLOOD GAS, [id number] 17:44:00 Test Item Value Reference Range Comments PH ARTERIAL (BEAKER) (test mahc=503) 7.52 7.35-7.45 PCO2 ARTERIAL (BEAKER) (test gzeq=498) 21 mmHg 35-45 PO2 ARTERIAL (BEAKER) (test jopk=166) 231 mmHg 80-90 O2 SATURATION ARTERIAL (BEAKER) (test afsg=529) 99.6 % 96.0-97.0 HCO3 ARTERIAL (BEAKER) (test vmxc=114) 17 mmol/L 21-29 BASE EXCESS ARTERIAL (BEAKER) (test ziqm=517) -4.9 mmol/L -2.0-3.0 PATIENT TEMPERATURE (BEAKER) (test vxxf=6274) 36.1 C FIO2 (BEAKER) (test havm=0270) 40.0 % SODIUM NA-STAT [id number] 17:44:00 Test Item Value Reference Range Comments SODIUM (BEAKER) (test zenm=203) 134 meq/L 135-148 POTASSIUM-STAT [id number] 17:44:00 Test Item Value Reference Range Comments POTASSIUM (BEAKER) (test jwpp=432) 6.2 meq/L 3.6-5.5 GLUCOSE-STAT [id number] 17:44:00 Test Item Value Reference Range Comments GLUCOSE RANDOM (BEAKER) (test lqhr=229) 147 mg/dL 70-110 HGB/HCT (H&H) - STAT [id number] 17:44:00 Test Item Value Reference Range Comments HEMOGLOBIN (BEAKER) (test wzsy=053) 9.9 g/dL 13.0-16.8 HEMATOCRIT (BEAKER) (test sfzx=593) 29.0 % 40.0-50.0 CALCIUM, [id number] 17:41:00 Test Item Value Reference Range Comments CALCIUM IONIZED (BEAKER) (test iwox=261) 1.03 mmol/L 1.12-1.27 PH, BLOOD (BEAKER) (test zwvr=5946) 7.52 OXYGEN SATURATION, [id number] 17:39:00 Test Item Value Reference Range Comments O2 SATURATION (MEASURED) (BEAKER) (test gnlt=6979) 84.5 % CBC W/PLT COUNT & AUTO [id number] 17:37:00 Test Item Value Reference Range Comments WHITE BLOOD CELL COUNT (BEAKER) (test aadp=369) 9.3 K/ L 3.5-10.5 RED BLOOD CELL COUNT (BEAKER) (test fems=267) 2.91 M/ L 4.63-6.08 HEMOGLOBIN (BEAKER) (test oirv=667) 9.2 GM/DL 13.7-17.5 HEMATOCRIT (BEAKER) (test hzbt=261) 27.9 % 40.1-51.0 MEAN CORPUSCULAR VOLUME (BEAKER) (test syuq=856) 95.9 fL 79.0-92.2 MEAN CORPUSCULAR HEMOGLOBIN (BEAKER) (test 31.6 pg 25.7-32.2 blnh=369) MEAN CORPUSCULAR HEMOGLOBIN CONC (BEAKER) (test 33.0 GM/DL 32.3-36.5 cgjl=656) RED CELL DISTRIBUTION WIDTH (BEAKER) (test 18.9 % 11.6-14.4 lwyi=717) PLATELET COUNT (BEAKER) (test khzi=206) 88 K/CU MM 150-450 MEAN PLATELET VOLUME (BEAKER) (test tjrh=459) 11.5 fL 9.4-12.4 NUCLEATED RED BLOOD CELLS (BEAKER) (test 1 /100 WBC 0-0 mgzb=417) NEUTROPHILS RELATIVE PERCENT (BEAKER) (test 91 % alst=636) LYMPHOCYTES RELATIVE PERCENT (BEAKER) (test 3 % fvlr=761) MONOCYTES RELATIVE PERCENT (BEAKER) (test 6 % pzys=822) EOSINOPHILS RELATIVE PERCENT (BEAKER) (test 0 % nubv=209) BASOPHILS RELATIVE PERCENT (BEAKER) (test 0 % kkjw=825) NEUTROPHILS ABSOLUTE COUNT (BEAKER) (test 8.47 K/ L 1.78-5.38 emkm=366) LYMPHOCYTES ABSOLUTE COUNT (BEAKER) (test 0.23 K/ L 1.32-3.57 zeva=424) MONOCYTES ABSOLUTE COUNT (BEAKER) (test pekh=563) 0.53 K/ L 0.30-0.82 EOSINOPHILS ABSOLUTE COUNT (BEAKER) (test 0.00 K/ L 0.04-0.54 bjvz=376) BASOPHILS ABSOLUTE COUNT (BEAKER) (test lgvl=286) 0.01 K/ L 0.01-0.08 IMMATURE GRANULOCYTES-RELATIVE PERCENT (BEAKER) 0 % 0-1 (test wiav=0854) [id number] 16:35:00 Test Item Value Reference Range Comments ACTIVATED CLOTTING TIME 230 sec TESTED AT [facility] [address] (BEAKER) (test dwzb=577) [facility] [address] [id number] 16:35:00 Test Item Value Reference Range Comments ACTIVATED CLOTTING TIME 191 sec TESTED AT [facility] [address] (BEAKER) (test zokt=924) [place] [id number] BLOOD GAS, [id number] 16:20:00 Test Item Value Reference Range Comments PH ARTERIAL (BEAKER) (test elak=297) 7.37 7.35-7.45 PCO2 ARTERIAL (BEAKER) (test oivm=231) 29 mm Hg 35-45 PO2 ARTERIAL (BEAKER) (test mjam=213) 590 mm Hg 80-90 O2 SATURATION ARTERIAL (BEAKER) (test bkdk=438) 99.9 % 96.0-97.0 HCO3 ARTERIAL (BEAKER) (test vnsa=696) 16 mmol/L 21-29 BASE EXCESS ARTERIAL (BEAKER) (test llwg=935) -7.3 mmol/L -2.0-3.0 PATIENT TEMPERATURE (BEAKER) (test jhmc=0094) 37.0 FIO2 (BEAKER) (test ilon=3471) 100 BLOOD GAS, [id number] 16:19:00 Test Item Value Reference Range Comments PH ARTERIAL (BEAKER) (test esop=289) 7.37 7.35-7.45 PCO2 ARTERIAL (BEAKER) (test twad=114) 27 mmHg 35-45 PO2 ARTERIAL (BEAKER) (test tlmk=725) 426 mmHg 80-90 O2 SATURATION ARTERIAL (BEAKER) (test wjop=297) 99.8 % 96.0-97.0 HCO3 ARTERIAL (BEAKER) (test zwvb=362) 15 mmol/L 21-29 BASE EXCESS ARTERIAL (BEAKER) (test vwsk=389) -9.1 mmol/L -2.0-3.0 PATIENT TEMPERATURE (BEAKER) (test ltux=0341) 37.0 C FIO2 (BEAKER) (test zktj=8269) 100.0 % Sample drawn from ECMO circuitLACTIC ACID, ARTERIAL, WHOLE [id number] 14:07 :00 Test Item Value Reference Range Comments LACTATE BLOOD ARTERIAL (2) 13.1 mmol/L 0.5-2.2 Specimen slightly hemolyzed (BEAKER) (test esxq=3682) Effective 01/04/2016: Units/Reference Range ChangeNew: 0.5-2.2 mmol/L Previous: 5 -20 mg/dLPROTHROMBIN [id number] 14:01:00 Test Item Value Reference Range Comments PROTIME (BEAKER) (test bguj=448) 20.9 seconds 11.7-14.7 INR (BEAKER) (test zqpl=222) 1.8 <=5.9 RECOMMENDED COUMADIN/WARFARIN INR THERAPY RANGESSTANDARD DOSE: 2.0 - 3.0 Includes: PROPHYLAXIS forvenous thrombosis, systemic embolization; TREATMENT for venous thrombosis and/or pulmonary embolus.HIGH RISK: Target INR is 2.5-3.5 for patients with mechanical heart valves.[id number] 14:01:00 Test Item Value Reference Range Comments FIBRINOGEN LEVEL (BEAKER) (test rgyq=226) 227 mg/dl 225-434 PLATELET [id number] 13:54:00 Test Item Value Reference Range Comments PLATELET COUNT (BEAKER) (test tlhf=316) 115 K/CU MM 150-450 BLOOD GAS, [id number] 13:47:00 Test Item Value Reference Range Comments PH ARTERIAL (BEAKER) (test csjn=281) 7.26 7.35-7.45 PCO2 ARTERIAL (BEAKER) (test hodd=557) 39 mmHg 35-45 PO2 ARTERIAL (BEAKER) (test fvxu=772) 180 mmHg 80-90 O2 SATURATION ARTERIAL (BEAKER) (test hakl=929) 99.0 % 96.0-97.0 HCO3 ARTERIAL (BEAKER) (test rtnu=180) 17 mmol/L 21-29 BASE EXCESS ARTERIAL (BEAKER) (test iwas=651) -9.0 mmol/L -2.0-3.0 PATIENT TEMPERATURE (BEAKER) (test efbd=3877) 37.1 C FIO2 (BEAKER) (test omun=5711) 40.0 % GLUCOSE-STAT [id number] 13:47:00 Test Item Value Reference Range Comments GLUCOSE RANDOM (BEAKER) (test tntc=620) 134 mg/dL 70-110 [id number] 12:33:00 Test Item Value Reference Range Comments POTASSIUM (BEAKER) (test gont=241) 5.6 meq/L 3.5-5.1 PRN - repeat glucose levels every 1 hour or as specified by insulin titration orders until glucose level is less than 450 mg/[id number] 12:33:00 Test Item Value Reference Range Comments GLUCOSE RANDOM (BEAKER) (test yjrk=779) 43 mg/dL 70-105 PRN - repeat glucose levels every 1 hour or as specified by insulin titration orders until glucose level is less than 450 mg/dLBASIC METABOLIC [id number] 11:05:00 Test Item Value Reference Range Comments SODIUM (BEAKER) (test 144 meq/L 136-145 tchy=971) POTASSIUM (BEAKER) (test 5.9 meq/L 3.5-5.1 hknh=377) CHLORIDE (BEAKER) (test 107 meq/L 98-107 xqlh=001) CO2 (BEAKER) (test 19 meq/L 22-29 wxty=031) BLOOD UREA NITROGEN 26 mg/dL 7-21 (BEAKER) (test ygti=335) CREATININE (BEAKER) (test 3.68 mg/dL 0.57-1.25 fwjc=787) GLUCOSE RANDOM (BEAKER) 34 mg/dL 70-105 (test mpvc=391) CALCIUM (BEAKER) (test 9.5 mg/dL 8.4-10.2 hwzb=145) EGFR (BEAKER) (test 21 mL/min/1.73 sq m ESTIMATED GFR IS NOT usdv=5646) ACCURATE CREATININE CLEARANCE IN PREDICTING GLOMERULAR FILTRATION RATE. ESTIMATED GFR IS NOT APPLICABLE FOR DIALYSIS PATIENTS. PRN - repeat glucose levels every 1 hour or as specified by insulin titration orders until glucose level is less than 450 mg/dLPRN - repeat potassium levels every 1 hour until glucose level is less than 450 mg/[id number] 11:05: 00 Test Item Value Reference Range Comments GLUCOSE RANDOM (BEAKER) (test dgek=393) 34 mg/dL 70-105 [id number] 10:44:00 Test Item Value Reference Range Comments POTASSIUM (BEAKER) (test vlrv=531) 5.9 meq/L 3.5-5.1 HEPATIC FUNCTION [id number] 10:44:00 Test Item Value Reference Range Comments TOTAL PROTEIN (BEAKER) (test mzcz=732) 5.5 gm/dL 6.0-8.3 ALBUMIN (BEAKER) (test htri=9265) 2.8 g/dL 3.5-5.0 BILIRUBIN TOTAL (BEAKER) (test hdzn=131) 2.3 mg/dL 0.2-1.2 BILIRUBIN DIRECT (BEAKER) (test fnen=471) 1.6 mg/dL 0.1-0.5 ALKALINE PHOSPHATASE (BEAKER) (test hiru=769) 50 U/L 40-150 AST (SGOT) (BEAKER) (test mipm=634) 856 U/L 5-34 ALT (SGPT) (BEAKER) (test lcaj=601) 420 U/L 6-55 PRN - repeat glucose levels every 1 hour or as specified by insulin titration orders until glucose level is less than 450 mg/dLPRN - repeat potassium levels every 1 hour until glucose level is less than 450 mg/dLPROTHROMBIN TIME/[id number] 10:43:00 Test Item Value Reference Range Comments PROTIME (BEAKER) (test fqxp=029) 19.5 seconds 11.7-14.7 INR (BEAKER) (test qqfi=064) 1.7 <=5.9 RECOMMENDED COUMADIN/WARFARIN INR THERAPY RANGESSTANDARD DOSE: 2.0 - 3.0 Includes: PROPHYLAXIS forvenous thrombosis, systemic embolization; TREATMENT for venous thrombosis and/or pulmonary embolus.HIGH RISK: Target INR is 2.5-3.5 for patients with mechanical heart valves.LACTIC ACID, ARTERIAL, WHOLE [id number] 10:38:00 Test Item Value Reference Range Comments LACTATE BLOOD ARTERIAL (2) 13.1 mmol/L 0.5-2.2 Specimen slightly hemolyzed (BEAKER) (test ftjp=1386) Effective 01/04/2016: Units/Reference Range ChangeNew: 0.5-2.2 mmol/L Previous: 5 -20 mg/dLCBC W/PLT COUNT & AUTO [id number] 10:23:00 Test Item Value Reference Range Comments WHITE BLOOD CELL COUNT (BEAKER) (test cjve=956) 10.3 K/ L 3.5-10.5 RED BLOOD CELL COUNT (BEAKER) (test iyrp=532) 3.75 M/ L 4.63-6.08 HEMOGLOBIN (BEAKER) (test isfv=960) 11.8 GM/DL 13.7-17.5 HEMATOCRIT (BEAKER) (test tuay=961) 36.6 % 40.1-51.0 MEAN CORPUSCULAR VOLUME (BEAKER) (test utbz=347) 97.6 fL 79.0-92.2 MEAN CORPUSCULAR HEMOGLOBIN (BEAKER) (test 31.5 pg 25.7-32.2 deby=163) MEAN CORPUSCULAR HEMOGLOBIN CONC (BEAKER) (test 32.2 GM/DL 32.3-36.5 xhxm=722) RED CELL DISTRIBUTION WIDTH (BEAKER) (test 19.2 % 11.6-14.4 ecml=477) PLATELET COUNT (BEAKER) (test zwxm=092) 125 K/CU MM 150-450 MEAN PLATELET VOLUME (BEAKER) (test vtgx=741) 10.7 fL 9.4-12.4 NUCLEATED RED BLOOD CELLS (BEAKER) (test 1 /100 WBC 0-0 wnua=143) NEUTROPHILS RELATIVE PERCENT (BEAKER) (test 86 % mkju=090) LYMPHOCYTES RELATIVE PERCENT (BEAKER) (test 4 % dnlc=505) MONOCYTES RELATIVE PERCENT (BEAKER) (test 9 % ftnv=182) EOSINOPHILS RELATIVE PERCENT (BEAKER) (test 0 % ylnz=141) BASOPHILS RELATIVE PERCENT (BEAKER) (test 0 % huhe=923) NEUTROPHILS ABSOLUTE COUNT (BEAKER) (test 8.88 K/ L 1.78-5.38 rdrd=486) LYMPHOCYTES ABSOLUTE COUNT (BEAKER) (test 0.41 K/ L 1.32-3.57 atuk=320) MONOCYTES ABSOLUTE COUNT (BEAKER) (test 0.91 K/ L 0.30-0.82 wlhi=367) EOSINOPHILS ABSOLUTE COUNT (BEAKER) (test 0.00 K/ L 0.04-0.54 gtrg=139) BASOPHILS ABSOLUTE COUNT (BEAKER) (test 0.02 K/ L 0.01-0.08 ywdv=608) IMMATURE GRANULOCYTES-RELATIVE PERCENT (BEAKER) 1 % 0-1 (test cids=6333) BLOOD GAS, [id number] 10:20:00 Test Item Value Reference Range Comments PH ARTERIAL (BEAKER) (test ejhs=132) 7.29 7.35-7.45 PCO2 ARTERIAL (BEAKER) (test eqyv=877) 40 mmHg 35-45 PO2 ARTERIAL (BEAKER) (test geju=445) 185 mmHg 80-90 O2 SATURATION ARTERIAL (BEAKER) (test kbes=559) 99.1 % 96.0-97.0 HCO3 ARTERIAL (BEAKER) (test cwwk=333) 18 mmol/L 21-29 BASE EXCESS ARTERIAL (BEAKER) (test myfz=079) -7.7 mmol/L -2.0-3.0 PATIENT TEMPERATURE (BEAKER) (test ddvr=1188) 37.3 C FIO2 (BEAKER) (test ywvl=1768) 40.0 % [id number] 09:01:00 Test Item Value Reference Range Comments POTASSIUM (BEAKER) (test wltw=330) 5.9 meq/L 3.5-5.1 PRN - repeat glucose levels every 1 hour or as specified by insulin titration orders until glucose level is less than 450 mg/[id number] 09:01:00 Test Item Value Reference Range Comments MAGNESIUM (BEAKER) (test novs=131) 1.7 mg/dL 1.6-2.6 PRN - repeat glucose levels every 1 hour or as specified by insulin titration orders until glucose level is less than 450 mg/[id number] 09:01:00 Test Item Value Reference Range Comments PHOSPHORUS (BEAKER) (test bpdr=263) 4.7 mg/dL 2.3-4.7 PRN - repeat glucose levels every 1 hour or as specified by insulin titration orders until glucose level is less than 450 mg/[id number] 09:01:00 Test Item Value Reference Range Comments GLUCOSE RANDOM (BEAKER) (test vuwv=068) 50 mg/dL 70-105 PRN - repeat glucose levels every 1 hour or as specified by insulin titration orders until glucose level is less than 450 mg/dLCALCIUM, [id number] 08: 47:00 Test Item Value Reference Range Comments CALCIUM IONIZED (BEAKER) (test sokl=567) 1.24 mmol/L 1.12-1.27 PH, BLOOD (BEAKER) (test sgnf=0653) 7.31 [id number] 08:45:00 Test Item Value Reference Range Comments PARTIAL THROMBOPLASTIN TIME (BEAKER) (test 53.7 seconds 22.5-36.0 hcfg=546) BLOOD GAS, [id number] 08:41:00 Test Item Value Reference Range Comments PH ARTERIAL (BEAKER) (test fvce=510) 7.31 7.35-7.45 PCO2 ARTERIAL (BEAKER) (test pdtk=467) 37 mmHg 35-45 PO2 ARTERIAL (BEAKER) (test gsuo=579) 192 mmHg 80-90 O2 SATURATION ARTERIAL (BEAKER) (test ezxn=128) 99.2 % 96.0-97.0 HCO3 ARTERIAL (BEAKER) (test vfge=256) 18 mmol/L 21-29 BASE EXCESS ARTERIAL (BEAKER) (test aqhu=214) -7.6 mmol/L -2.0-3.0 PATIENT TEMPERATURE (BEAKER) (test tzwg=7566) 37.5 C FIO2 (BEAKER) (test euxe=2024) 40.0 % PH, [id number] 08:41:00 Test Item Value Reference Range Comments PH ARTERIAL (BEAKER) (test sxiv=074) 7.31 7.35-7.45 RAD, CHEST, 1 VIEW, NON [id number] 07:31:00Reason for exam:->s/p cardiac surgeryShould this be [...] Xie MDReport VerifiedDate/Time: 01/11/2018 07:31:38 Reading Location: [facility] B1 C013X Ortho Consult Reading Room BLOOD GAS, [id number] 06:54:00 Test Item Value Reference Range Comments PH ARTERIAL (BEAKER) (test wqnk=448) 7.28 7.35-7.45 PCO2 ARTERIAL (BEAKER) (test npna=126) 40 mmHg 35-45 PO2 ARTERIAL (BEAKER) (test vmqk=005) 206 mmHg 80-90 O2 SATURATION ARTERIAL (BEAKER) (test lmlv=423) 99.3 % 96.0-97.0 HCO3 ARTERIAL (BEAKER) (test sgmx=142) 18 mmol/L 21-29 BASE EXCESS ARTERIAL (BEAKER) (test xzzg=348) -7.9 mmol/L -2.0-3.0 PATIENT TEMPERATURE (BEAKER) (test ljbn=7464) 37.3 C FIO2 (BEAKER) (test tjkw=3176) 40.0 % BASIC METABOLIC [id number] 06:12:00 Test Item Value Reference Range Comments SODIUM (BEAKER) (test 141 meq/L 136-145 lsxc=784) POTASSIUM (BEAKER) (test 4.7 meq/L 3.5-5.1 xixy=799) CHLORIDE (BEAKER) (test 109 meq/L 98-107 gwdv=766) CO2 (BEAKER) (test 17 meq/L 22-29 clmt=190) BLOOD UREA NITROGEN 31 mg/dL 7-21 (BEAKER) (test scrv=682) CREATININE (BEAKER) (test 4.41 mg/dL 0.57-1.25 jxdt=536) GLUCOSE RANDOM (BEAKER) 86 mg/dL 70-105 (test giow=597) CALCIUM (BEAKER) (test 10.6 mg/dL 8.4-10.2 lodw=378) EGFR (BEAKER) (test 17 mL/min/1.73 sq m ESTIMATED GFR IS NOT loln=6559) ACCURATE CREATININE CLEARANCE IN PREDICTING GLOMERULAR FILTRATION RATE. ESTIMATED GFR IS NOT APPLICABLE FOR DIALYSIS PATIENTS. POCT-GLUCOSE [id number] 05:58:00 Test Item Value Reference Range Comments POC-GLUCOSE METER (BEAKER) 121 mg/dL 70-110 TESTED AT [address] (test ncei=4625) [place] [address] POCT-GLUCOSE [id number] 05:58:00 Test Item Value Reference Range Comments POC-GLUCOSE METER (BEAKER) 66 mg/dL 70-110 Will Repeat Test/TESTED AT (test ikhm=8723) [place] [address] [id number] 05:51:00 Test Item Value Reference Range Comments PHOSPHORUS (BEAKER) (test xhkf=164) 3.5 mg/dL 2.3-4.7 [id number] 05:51:00 Test Item Value Reference Range Comments MAGNESIUM (BEAKER) (test phfi=357) 1.9 mg/dL 1.6-2.6 BLOOD GAS, [id number] 05:47:00 Test Item Value Reference Range Comments PH ARTERIAL (BEAKER) (test yefj=997) 7.32 7.35-7.45 PCO2 ARTERIAL (BEAKER) (test xttn=309) 40 mmHg 35-45 PO2 ARTERIAL (BEAKER) (test ghtf=394) 190 mmHg 80-90 O2 SATURATION ARTERIAL (BEAKER) (test wkgn=774) 99.2 % 96.0-97.0 HCO3 ARTERIAL (BEAKER) (test hmev=639) 20 mmol/L 21-29 BASE EXCESS ARTERIAL (BEAKER) (test izgd=689) -5.6 mmol/L -2.0-3.0 PATIENT TEMPERATURE (BEAKER) (test rnic=8382) 36.6 C FIO2 (BEAKER) (test itqt=1657) 40.0 % POCT-GLUCOSE [id number] 05:27:00 Test Item Value Reference Range Comments POC-GLUCOSE METER (BEAKER) 112 mg/dL 70-110 TESTED AT [address] (test ppnw=6795) [facility] [address] POCT-GLUCOSE [id number] 05:27:00 Test Item Value Reference Range Comments POC-GLUCOSE METER (BEAKER) 106 mg/dL 70-110 TESTED AT [address] (test ccet=9014) [facility] [address] POCT-GLUCOSE [id number] 05:26:00 Test Item Value Reference Range Comments POC-GLUCOSE METER (BEAKER) 66 mg/dL 70-110 TESTED AT [address] (test mbvx=3543) [facility] [address] LACTIC ACID, ARTERIAL, WHOLE [id number] 04:59:00 Test Item Value Reference Range Comments LACTATE BLOOD ARTERIAL (2) 12.2 mmol/L 0.5-2.2 Specimen slightly hemolyzed (BEAKER) (test fney=1606) Effective 01/04/2016: Units/Reference Range ChangeNew: 0.5-2.2 mmol/L Previous: 5 -20 mg/dLCALCIUM, [id number] 04:57:00 Test Item Value Reference Range Comments CALCIUM IONIZED (BEAKER) (test reyk=601) 1.33 mmol/L 1.12-1.27 PH, BLOOD (BEAKER) (test tujl=1735) 7.30 BLOOD GAS, [id number] 04:57:00 Test Item Value Reference Range Comments PH ARTERIAL (BEAKER) (test zihq=871) 7.32 7.35-7.45 PCO2 ARTERIAL (BEAKER) (test cnml=518) 40 mmHg 35-45 PO2 ARTERIAL (BEAKER) (test vxtn=295) 193 mmHg 80-90 O2 SATURATION ARTERIAL (BEAKER) (test txqs=284) 99.2 % 96.0-97.0 HCO3 ARTERIAL (BEAKER) (test cldx=920) 20 mmol/L 21-29 BASE EXCESS ARTERIAL (BEAKER) (test chef=935) -6.0 mmol/L -2.0-3.0 PATIENT TEMPERATURE (BEAKER) (test nsqw=5611) 35.5 C FIO2 (BEAKER) (test acij=8462) 45.0 % OXYGEN SATURATION, [id number] 04:56:00 Test Item Value Reference Range Comments O2 SATURATION (MEASURED) (BEAKER) (test qwox=3753) 83.2 % CBC W/PLT COUNT & AUTO [id number] 04:56:00 Test Item Value Reference Range Comments WHITE BLOOD CELL COUNT (BEAKER) (test itwn=162) 12.5 K/ L 3.5-10.5 RED BLOOD CELL COUNT (BEAKER) (test tppm=085) 3.79 M/ L 4.63-6.08 HEMOGLOBIN (BEAKER) (test ujsx=080) 12.0 GM/DL 13.7-17.5 HEMATOCRIT (BEAKER) (test ugun=233) 36.8 % 40.1-51.0 MEAN CORPUSCULAR VOLUME (BEAKER) (test ffdx=026) 97.1 fL 79.0-92.2 MEAN CORPUSCULAR HEMOGLOBIN (BEAKER) (test 31.7 pg 25.7-32.2 wlsk=873) MEAN CORPUSCULAR HEMOGLOBIN CONC (BEAKER) (test 32.6 GM/DL 32.3-36.5 ftsm=046) RED CELL DISTRIBUTION WIDTH (BEAKER) (test 18.2 % 11.6-14.4 uoag=294) PLATELET COUNT (BEAKER) (test xxat=595) 134 K/CU MM 150-450 MEAN PLATELET VOLUME (BEAKER) (test nnda=446) 10.9 fL 9.4-12.4 NUCLEATED RED BLOOD CELLS (BEAKER) (test 0 /100 WBC 0-0 vipr=673) NEUTROPHILS RELATIVE PERCENT (BEAKER) (test 89 % ogpk=806) LYMPHOCYTES RELATIVE PERCENT (BEAKER) (test 2 % hyrs=976) MONOCYTES RELATIVE PERCENT (BEAKER) (test 8 % sjhx=324) EOSINOPHILS RELATIVE PERCENT (BEAKER) (test 0 % behx=205) BASOPHILS RELATIVE PERCENT (BEAKER) (test 0 % sjtb=087) NEUTROPHILS ABSOLUTE COUNT (BEAKER) (test 11.15 K/ L 1.78-5.38 rmjn=576) LYMPHOCYTES ABSOLUTE COUNT (BEAKER) (test 0.30 K/ L 1.32-3.57 xkjv=041) MONOCYTES ABSOLUTE COUNT (BEAKER) (test 0.97 K/ L 0.30-0.82 hamz=081) EOSINOPHILS ABSOLUTE COUNT (BEAKER) (test 0.01 K/ L 0.04-0.54 tvwe=949) BASOPHILS ABSOLUTE COUNT (BEAKER) (test 0.02 K/ L 0.01-0.08 zlxk=571) IMMATURE GRANULOCYTES-RELATIVE PERCENT (BEAKER) 1 % 0-1 (test ultn=0561) CALCIUM, [id number] 03:38:00 Test Item Value Reference Range Comments CALCIUM IONIZED (BEAKER) (test xlaz=715) 1.32 mmol/L 1.12-1.27 PH, BLOOD (BEAKER) (test hhaj=5003) 7.29 BLOOD GAS, [id number] 03:36:00 Test Item Value Reference Range Comments PH ARTERIAL (BEAKER) (test fjwg=425) 7.31 7.35-7.45 PCO2 ARTERIAL (BEAKER) (test ufjy=345) 36 mmHg 35-45 PO2 ARTERIAL (BEAKER) (test paxq=875) 207 mmHg 80-90 O2 SATURATION ARTERIAL (BEAKER) (test saoh=862) 99.3 % 96.0-97.0 HCO3 ARTERIAL (BEAKER) (test jhlo=043) 19 mmol/L 21-29 BASE EXCESS ARTERIAL (BEAKER) (test brlo=573) -7.6 mmol/L -2.0-3.0 PATIENT TEMPERATURE (BEAKER) (test znvr=3292) 34.9 C FIO2 (BEAKER) (test zmjt=7212) 50.0 % HGB/HCT (H&H) - STAT [id number] 03:36:00 Test Item Value Reference Range Comments HEMOGLOBIN (BEAKER) (test nvue=855) 12.5 g/dL 13.0-16.8 HEMATOCRIT (BEAKER) (test fdwf=887) 37.0 % 40.0-50.0 OXYGEN SATURATION, [id number] 03:35:00 Test Item Value Reference Range Comments O2 SATURATION (MEASURED) (BEAKER) (test rnvi=9078) 80.3 % GLUCOSE-STAT [id number] 03:34:00 Test Item Value Reference Range Comments GLUCOSE RANDOM (BEAKER) (test xvdp=668) 91 mg/dL 70-110 SODIUM NA-STAT [id number] 03:34:00 Test Item Value Reference Range Comments SODIUM (BEAKER) (test cbvt=048) 137 meq/L 135-148 POTASSIUM-STAT [id number] 03:34:00 Test Item Value Reference Range Comments POTASSIUM (BEAKER) (test qlst=893) 4.6 meq/L 3.6-5.5 BLOOD GAS, [id number] 03:01:00 Test Item Value Reference Range Comments PH ARTERIAL (BEAKER) (test embd=232) 7.34 7.35-7.45 PCO2 ARTERIAL (BEAKER) (test uynt=306) 37 mmHg 35-45 PO2 ARTERIAL (BEAKER) (test uymk=683) 100 mmHg 80-90 O2 SATURATION ARTERIAL (BEAKER) (test wbns=450) 97.8 % 96.0-97.0 HCO3 ARTERIAL (BEAKER) (test agwc=797) 20 mmol/L 21-29 BASE EXCESS ARTERIAL (BEAKER) (test tuks=303) -5.7 mmol/L -2.0-3.0 PATIENT TEMPERATURE (BEAKER) (test bmxf=3521) 34.6 C FIO2 (BEAKER) (test efcc=7583) 50.0 % HGB/HCT (H&H) - STAT [id number] 03:01:00 Test Item Value Reference Range Comments HEMOGLOBIN (BEAKER) (test myvx=698) 12.0 g/dL 13.0-16.8 HEMATOCRIT (BEAKER) (test nxjn=518) 35.0 % 40.0-50.0 POTASSIUM-STAT [id number] 03:00:00 Test Item Value Reference Range Comments POTASSIUM (BEAKER) (test rtsf=631) 5.0 meq/L 3.6-5.5 GLUCOSE-STAT [id number] 03:00:00 Test Item Value Reference Range Comments GLUCOSE RANDOM (BEAKER) (test ntyl=177) 102 mg/dL 70-110 SODIUM NA-STAT [id number] 03:00:00 Test Item Value Reference Range Comments SODIUM (BEAKER) (test gjoz=702) 140 meq/L 135-148 LACTIC ACID, ARTERIAL, WHOLE [id number] 01:53:00 Test Item Value Reference Range Comments LACTATE BLOOD ARTERIAL (2) 9.4 mmol/L 0.5-2.2 Specimen slightly hemolyzed (BEAKER) (test aupm=3495) Effective 01/04/2016: Units/Reference Range ChangeNew: 0.5-2.2 mmol/L Previous: 5 -20 mg/dLGLUCOSE-STAT [id number] 01:27:00 Test Item Value Reference Range Comments GLUCOSE RANDOM (BEAKER) (test bpwv=913) 99 mg/dL 70-110 BLOOD GAS, [id number] 01:27:00 Test Item Value Reference Range Comments PH ARTERIAL (BEAKER) (test rams=812) 7.33 7.35-7.45 PCO2 ARTERIAL (BEAKER) (test piox=968) 37 mmHg 35-45 PO2 ARTERIAL (BEAKER) (test ofog=997) 325 mmHg 80-90 O2 SATURATION ARTERIAL (BEAKER) (test jsgg=293) 99.7 % 96.0-97.0 HCO3 ARTERIAL (BEAKER) (test pibx=738) 20 mmol/L 21-29 BASE EXCESS ARTERIAL (BEAKER) (test aflh=944) -6.6 mmol/L -2.0-3.0 PATIENT TEMPERATURE (BEAKER) (test suhg=1686) 33.9 C FIO2 (BEAKER) (test gzzw=0302) 100.0 % HGB/HCT (H&H) - STAT [id number] 01:27:00 Test Item Value Reference Range Comments HEMOGLOBIN (BEAKER) (test dcmw=660) 12.7 g/dL 13.0-16.8 HEMATOCRIT (BEAKER) (test mhaj=240) 37.0 % 40.0-50.0 SODIUM NA-STAT [id number] 01:26:00 Test Item Value Reference Range Comments SODIUM (BEAKER) (test kxbh=710) 141 meq/L 135-148 POTASSIUM-STAT [id number] 01:26:00 Test Item Value Reference Range Comments POTASSIUM (BEAKER) (test tmsz=971) 3.6 meq/L 3.6-5.5 [id number] 00:38:00 Test Item Value Reference Range Comments PARTIAL THROMBOPLASTIN TIME (BEAKER) (test 47.4 seconds 22.5-36.0 ryko=864) [id number] 00:35:00 Test Item Value Reference Range Comments POTASSIUM (BEAKER) (test 3.5 meq/L 3.5-5.1 Specimen slightly hemolyzed vaie=611) CALCIUM, [id number] 00:25:00 Test Item Value Reference Range Comments CALCIUM IONIZED (BEAKER) (test levm=196) 1.43 mmol/L 1.12-1.27 PH, BLOOD (BEAKER) (test xend=4049) 7.33 THROMBOELASTOGRAPH (TEG)[id number] 23:05:00 Test Item Value Reference Range Comments TEG ACTIVATED CLOTTING TIME (BEAKER) (test 7.2 minutes 4.0-7.0 ctuy=3587) TEG FIBRINOGEN ACTIVITY (BEAKER) (test 67.4 degrees 61.0-73.0 owrd=7866) TEG PLT. AGGREGATION (BEAKER) (test brbn=7637) 49.8 MM 55.0-65.0 TEG FIBRINOLYSIS (BEAKER) (test ydkd=5710) 15.1 % 0.0-5.0 TGH ACTIVATED CLOTTING TIME (BEAKER) (test 6.9 minutes 4.0-7.0 mzqa=5655) TGH FIBRINOGEN ACTIVITY (BEAKER) (test 69.4 degrees 61.0-73.0 dkjj=3988) TGH PLT. AGGREGATION (BEAKER) (test haup=7876) 55.8 MM 55.0-65.0 TGH FIBRINOLYSIS (BEAKER) (test teji=2688) 0.0 % 0.0-5.0 RAD, CHEST, 1 VIEW, NON [id number] 22:36:00Reason for exam:->s/p BronchoscopyFINAL REPORT CLINICAL INDICATION: Post bronchoscopy Comparison: Same date [id number] hours There is improved aeration of the right upper lobe. No pneumothorax is present. Hazy opacity in the right upper lobe and in the retrocardiac lower lungs may reflect atelectasis but pneumonitis should be excluded clinically. The cardiomediastinal contours are stable. Support lines are stable. Signed: Kellen Parra MDReport Verified Date/ Time: 01/10/2018 22:36:29 Reading Location: [address] Reading Room [facility] METABOLIC [id number] 22:01:00 Test Item Value Reference Range Comments SODIUM (BEAKER) (test 144 meq/L 136-145 oqpa=989) POTASSIUM (BEAKER) (test 3.9 meq/L 3.5-5.1 Specimen slightly bqnf=179) hemolyzed CHLORIDE (BEAKER) (test 109 meq/L 98-107 nuxb=664) CO2 (BEAKER) (test 20 meq/L 22-29 utou=191) BLOOD UREA NITROGEN 39 mg/dL 7-21 (BEAKER) (test lkyt=547) CREATININE (BEAKER) (test 6.14 mg/dL 0.57-1.25 Specimen slightly oysb=288) hemolyzed GLUCOSE RANDOM (BEAKER) 105 mg/dL 70-105 (test uwrj=295) CALCIUM (BEAKER) (test 12.8 mg/dL 8.4-10.2 aytk=664) EGFR (BEAKER) (test 11 mL/min/1.73 sq m ESTIMATED GFR IS NOT mybd=8405) ACCURATE CREATININE CLEARANCE IN PREDICTING GLOMERULAR FILTRATION RATE. ESTIMATED GFR IS NOT APPLICABLE FOR DIALYSIS PATIENTS. [id number] 22:00:00 Test Item Value Reference Range Comments MAGNESIUM (BEAKER) (test 2.4 mg/dL 1.6-2.6 Specimen slightly hemolyzed kybd=809) [id number] 22:00:00 Test Item Value Reference Range Comments PHOSPHORUS (BEAKER) (test 3.2 mg/dL 2.3-4.7 Specimen slightly hemolyzed gtja=641) LACTIC ACID, ARTERIAL, WHOLE [id number] 21:57:00 Test Item Value Reference Range Comments LACTATE BLOOD ARTERIAL (2) 10.2 mmol/L 0.5-2.2 Specimen slightly hemolyzed (BEAKER) (test rdqr=7998) Effective 01/04/2016: Units/Reference Range ChangeNew: 0.5-2.2 mmol/L Previous: 5 -20 mg/dLCBC W/PLT COUNT & AUTO [id number] 21:51:00 Test Item Value Reference Range Comments WHITE BLOOD CELL COUNT (BEAKER) (test pkop=367) 12.9 K/ L 3.5-10.5 RED BLOOD CELL COUNT (BEAKER) (test ebqn=808) 2.52 M/ L 4.63-6.08 HEMOGLOBIN (BEAKER) (test zkdh=391) 8.0 GM/DL 13.7-17.5 HEMATOCRIT (BEAKER) (test lxhu=736) 24.9 % 40.1-51.0 MEAN CORPUSCULAR VOLUME (BEAKER) (test hmjp=000) 98.8 fL 79.0-92.2 MEAN CORPUSCULAR HEMOGLOBIN (BEAKER) (test 31.7 pg 25.7-32.2 zyls=144) MEAN CORPUSCULAR HEMOGLOBIN CONC (BEAKER) (test 32.1 GM/DL 32.3-36.5 emzy=881) RED CELL DISTRIBUTION WIDTH (BEAKER) (test 17.2 % 11.6-14.4 mopi=525) PLATELET COUNT (BEAKER) (test kdtv=623) 150 K/CU MM 150-450 MEAN PLATELET VOLUME (BEAKER) (test zrgp=536) 9.8 fL 9.4-12.4 NUCLEATED RED BLOOD CELLS (BEAKER) (test 1 /100 WBC 0-0 lktk=814) NEUTROPHILS RELATIVE PERCENT (BEAKER) (test 85 % wtnm=292) LYMPHOCYTES RELATIVE PERCENT (BEAKER) (test 9 % tlot=675) MONOCYTES RELATIVE PERCENT (BEAKER) (test 6 % lhgb=609) EOSINOPHILS RELATIVE PERCENT (BEAKER) (test 0 % iryf=906) BASOPHILS RELATIVE PERCENT (BEAKER) (test 0 % mgfi=173) NEUTROPHILS ABSOLUTE COUNT (BEAKER) (test 10.97 K/ L 1.78-5.38 ssuj=971) LYMPHOCYTES ABSOLUTE COUNT (BEAKER) (test 1.10 K/ L 1.32-3.57 kdrc=985) MONOCYTES ABSOLUTE COUNT (BEAKER) (test 0.72 K/ L 0.30-0.82 onhk=817) EOSINOPHILS ABSOLUTE COUNT (BEAKER) (test 0.04 K/ L 0.04-0.54 dpqv=027) BASOPHILS ABSOLUTE COUNT (BEAKER) (test 0.01 K/ L 0.01-0.08 etsm=252) IMMATURE GRANULOCYTES-RELATIVE PERCENT (BEAKER) 1 % 0-1 (test fyza=5199) [id number] 21:49:00 Test Item Value Reference Range Comments PARTIAL THROMBOPLASTIN TIME (BEAKER) (test 41.2 seconds 22.5-36.0 qtui=168) PROTHROMBIN TIME/[id number] 21:48:00 Test Item Value Reference Range Comments PROTIME (BEAKER) (test tstx=850) 19.8 seconds 11.7-14.7 INR (BEAKER) (test gfjt=965) 1.7 <=5.9 RECOMMENDED COUMADIN/WARFARIN INR THERAPY RANGESSTANDARD DOSE: 2.0 - 3.0 Includes: PROPHYLAXIS forvenous thrombosis, systemic embolization; TREATMENT for venous thrombosis and/or pulmonary embolus.HIGH RISK: Target INR is 2.5-3.5 for patients with mechanical heart valves.[id number] 21:48:00 Test Item Value Reference Range Comments FIBRINOGEN LEVEL (BEAKER) (test ehrd=468) 221 mg/dl 225-434 CALCIUM, [id number] 21:33:00 Test Item Value Reference Range Comments CALCIUM IONIZED (BEAKER) (test tiey=684) 1.54 mmol/L 1.12-1.27 PH, BLOOD (BEAKER) (test fnbd=3310) 7.33 OXYGEN SATURATION, [id number] 21:33:00 Test Item Value Reference Range Comments O2 SATURATION (MEASURED) (BEAKER) (test qcmp=2934) 67.1 % GLUCOSE-STAT [id number] 21:32:00 Test Item Value Reference Range Comments GLUCOSE RANDOM (BEAKER) (test rlui=723) 98 mg/dL 70-110 SODIUM NA-STAT [id number] 21:32:00 Test Item Value Reference Range Comments SODIUM (BEAKER) (test oola=113) 139 meq/L 135-148 POTASSIUM-STAT [id number] 21:32:00 Test Item Value Reference Range Comments POTASSIUM (BEAKER) (test tgna=731) 3.6 meq/L 3.6-5.5 BLOOD GAS, [id number] 21:32:00 Test Item Value Reference Range Comments PH ARTERIAL (BEAKER) (test pymo=941) 7.33 7.35-7.45 PCO2 ARTERIAL (BEAKER) (test sgcq=697) 44 mmHg 35-45 PO2 ARTERIAL (BEAKER) (test ypkv=393) 98 mmHg 80-90 O2 SATURATION ARTERIAL (BEAKER) (test wkvz=863) 97.1 % 96.0-97.0 HCO3 ARTERIAL (BEAKER) (test iark=804) 23 mmol/L 21-29 BASE EXCESS ARTERIAL (BEAKER) (test gxqz=350) -3.1 mmol/L -2.0-3.0 PATIENT TEMPERATURE (BEAKER) (test hwym=7666) 36.6 C FIO2 (BEAKER) (test vdtk=5486) 60.0 % HGB/HCT (H&H) - STAT [id number] 21:32:00 Test Item Value Reference Range Comments HEMOGLOBIN (BEAKER) (test cqrn=876) 8.2 g/dL 13.0-16.8 HEMATOCRIT (BEAKER) (test wvar=362) 24.0 % 40.0-50.0 RAD, CHEST, 1 VIEW, NON [id number] 21:32:00Reason for exam:->s/p cardiac surgeryShould this be [...] the level of the clavicles. Right IJ Riddleton-Moni catheter terminatesin the distal right pulmonary artery. The soft tissues and osseous structures are intact. IMPRESSION: Postoperative changes with right upper lobe collapse, likely secondary to mucous plugging. Supporting lines and tubes as described above. Note position of the Riddleton-Moni catheter. Signed: Moiz Musaeport Verified Date/Time: 01/10/2018 21:32:31 Reading Location: [facility] B1 C013W Consult Reading Room THROMBOELASTOGRAPH (TEG) 21:01:00 Test Item Value Reference Range Comments TEG ACTIVATED CLOTTING TIME (BEAKER) (test 19.1 minutes 4.0-7.0 vcbc=0390) TEG FIBRINOGEN ACTIVITY (BEAKER) (test 45.3 degrees 61.0-73.0 ivnt=4024) TEG PLT. AGGREGATION (BEAKER) (test kbqh=9852) 42.1 MM 55.0-65.0 TGH ACTIVATED CLOTTING TIME (BEAKER) (test 12.9 minutes 4.0-7.0 nebk=0771) TGH FIBRINOGEN ACTIVITY (BEAKER) (test 24.6 degrees 61.0-73.0 obdf=9856) TGH PLT. AGGREGATION (BEAKER) (test hpup=6434) 40.1 MM 55.0-65.0 CALCIUM, [id number] 20:42:00 Test Item Value Reference Range Comments CALCIUM IONIZED (BEAKER) (test dpzv=599) 1.41 mmol/L 1.12-1.27 PH, BLOOD (BEAKER) (test elmb=5621) 7.41 SODIUM NA-STAT [id number] 20:41:00 Test Item Value Reference Range Comments SODIUM (BEAKER) (test dhta=527) 138 meq/L 135-148 POTASSIUM-STAT [id number] 20:41:00 Test Item Value Reference Range Comments POTASSIUM (BEAKER) (test qxwb=690) 3.7 meq/L 3.6-5.5 BLOOD GAS, [id number] 20:41:00 Test Item Value Reference Range Comments PH ARTERIAL (BEAKER) (test rmga=087) 7.41 7.35-7.45 PCO2 ARTERIAL (BEAKER) (test uarw=622) 32 mmHg 35-45 PO2 ARTERIAL (BEAKER) (test gere=282) 153 mmHg 80-90 O2 SATURATION ARTERIAL (BEAKER) (test otau=198) 99.1 % 96.0-97.0 HCO3 ARTERIAL (BEAKER) (test iclk=241) 21 mmol/L 21-29 BASE EXCESS ARTERIAL (BEAKER) (test znzc=055) -4.2 mmol/L -2.0-3.0 PATIENT TEMPERATURE (BEAKER) (test wnop=6643) 32.0 C FIO2 (BEAKER) (test tnzy=2416) 100.0 % GLUCOSE-STAT [id number] 20:41:00 Test Item Value Reference Range Comments GLUCOSE RANDOM (BEAKER) (test yvnp=953) 120 mg/dL 70-110 HGB/HCT (H&H) - STAT [id number] 20:41:00 Test Item Value Reference Range Comments HEMOGLOBIN (BEAKER) (test cvak=186) 7.8 g/dL 13.0-16.8 HEMATOCRIT (BEAKER) (test mtqv=221) 23.0 % 40.0-50.0 [id number] 20:23:00 Test Item Value Reference Range Comments FIBRINOGEN LEVEL (BEAKER) (test clrd=930) 239 mg/dl 225-434 [id number] 20:23:00 Test Item Value Reference Range Comments PARTIAL THROMBOPLASTIN TIME (BEAKER) (test 38.6 seconds 22.5-36.0 mduf=311) PROTHROMBIN [id number] 20:22:00 Test Item Value Reference Range Comments PROTIME (BEAKER) (test qnis=791) 21.6 seconds 11.7-14.7 INR (BEAKER) (test wlye=377) 1.9 <=5.9 RECOMMENDED COUMADIN/WARFARIN INR THERAPY RANGESSTANDARD DOSE: 2.0 - 3.0 Includes: PROPHYLAXIS forvenous thrombosis, systemic embolization; TREATMENT for venous thrombosis and/or pulmonary embolus.HIGH RISK: Target INR is 2.5-3.5 for patients with mechanical heart valves.[id number] 20:16:00 Test Item Value Reference Range Comments ACTIVATED CLOTTING TIME 114 sec TESTED AT [address] [facility] (test mklj=997) [place] [id number] 20:16:00 Test Item Value Reference Range Comments ACTIVATED CLOTTING TIME 499 sec TESTED AT [address] ([facility]) (test phuz=870) [place] [id number] 20:16:00 Test Item Value Reference Range Comments ACTIVATED CLOTTING TIME 483 sec TESTED AT [address] [facility] (test vctg=645) [place] [address] [id number] 20:16:00 Test Item Value Reference Range Comments ACTIVATED CLOTTING TIME 538 sec TESTED AT [address] ([facility]) (test ljlk=027) [place] [address] [id number] 20:16:00 Test Item Value Reference Range Comments ACTIVATED CLOTTING TIME 615 sec TESTED AT [address] ([facility]) (test uwxp=534) [place] [id number] 20:16:00 Test Item Value Reference Range Comments ACTIVATED CLOTTING TIME 692 sec TESTED AT [address] ([facility]) (test iaqh=826) [place] [address] [id number] 20:16:00 Test Item Value Reference Range Comments ACTIVATED CLOTTING TIME 428 sec TESTED AT [address] [facility] (test tgjx=662) [place] [address] [id number] 20:16:00 Test Item Value Reference Range Comments ACTIVATED CLOTTING TIME 373 sec TESTED AT [address] [facility] (test quyl=440) [place] [id number] 20:16:00 Test Item Value Reference Range Comments ACTIVATED CLOTTING TIME 455 sec TESTED AT [address] [facility] (test szbg=870) [place] [address] [id number] 20:16:00 Test Item Value Reference Range Comments ACTIVATED CLOTTING TIME 494 sec TESTED AT [place] [address] [facility] (BEAKER) (test mbii=822) [place] [address] [id number] 20:16:00 Test Item Value Reference Range Comments ACTIVATED CLOTTING TIME 527 sec TESTED AT [place] [address] [facility] (test ogtp=364) [place] [address] [id number] 20:16:00 Test Item Value Reference Range Comments ACTIVATED CLOTTING TIME 610 sec TESTED AT [address] (BEAKER) (test paaj=296) [place] [address] [id number] 20:16:00 Test Item Value Reference Range Comments ACTIVATED CLOTTING TIME 576 sec TESTED AT [address] (BEAKER) (test hdoj=198) [place] [address] [id number] 20:16:00 Test Item Value Reference Range Comments ACTIVATED CLOTTING TIME 384 sec TESTED AT [address] (BEAKER) (test zudp=590) [place] [address] PLATELET [id number] 20:08:00 Test Item Value Reference Range Comments PLATELET COUNT (BEAKER) (test kngt=040) 47 K/CU MM 150-450 THROMBOELASTOGRAPH (TEG)[id number] 20:00:00 Test Item Value Reference Range Comments TEG ACTIVATED CLOTTING TIME (BEAKER) minutes 4.0-7.0 No clot detected (test hqoz=4251) [facility] ACTIVATED CLOTTING TIME (BEAKER) 9.2 minutes 4.0-7.0 (test afge=4404) [facility] FIBRINOGEN ACTIVITY (BEAKER) (test 51.1 degrees 61.0-73.0 akam=1718) [facility] PLT. AGGREGATION (BEAKER) (test 41.9 MM 55.0-65.0 hcjj=0684) [facility] FIBRINOLYSIS (BEAKER) (test 0.0 % 0.0-5.0 rtit=4199) CALCIUM, [id number] 19:59:00 Test Item Value Reference Range Comments CALCIUM IONIZED (BEAKER) (test qwzu=255) 1.39 mmol/L 1.12-1.27 PH, BLOOD (BEAKER) (test ated=6650) 7.37 BLOOD GAS, [id number] 19:58:00 Test Item Value Reference Range Comments PH ARTERIAL (BEAKER) (test sggx=937) 7.39 7.35-7.45 PCO2 ARTERIAL (BEAKER) (test zrxz=234) 35 mmHg 35-45 PO2 ARTERIAL (BEAKER) (test neub=431) 304 mmHg 80-90 O2 SATURATION ARTERIAL (BEAKER) (test nryf=439) 99.7 % 96.0-97.0 HCO3 ARTERIAL (BEAKER) (test tfxb=268) 21 mmol/L 21-29 BASE EXCESS ARTERIAL (BEAKER) (test kwqr=002) -3.8 mmol/L -2.0-3.0 PATIENT TEMPERATURE (BEAKER) (test nsip=1675) 36.0 C FIO2 (BEAKER) (test cevu=2381) 100.0 % GLUCOSE-STAT [id number] 19:58:00 Test Item Value Reference Range Comments GLUCOSE RANDOM (BEAKER) (test cble=730) 143 mg/dL 70-110 HGB/HCT (H&H) - STAT [id number] 19:58:00 Test Item Value Reference Range Comments HEMOGLOBIN (BEAKER) (test hshk=900) 8.7 g/dL 13.0-16.8 HEMATOCRIT (BEAKER) (test agro=680) 26.0 % 40.0-50.0 SODIUM NA-STAT [id number] 19:57:00 Test Item Value Reference Range Comments SODIUM (BEAKER) (test bhpl=037) 140 meq/L 135-148 POTASSIUM-STAT [id number] 19:57:00 Test Item Value Reference Range Comments POTASSIUM (BEAKER) (test wdov=293) 3.9 meq/L 3.6-5.5 [id number] 19:29:00 Test Item Value Reference Range Comments PARTIAL THROMBOPLASTIN TIME (BEAKER) (test > seconds 22.5-36.0 urbe=639) [id number] 19:16:00 Test Item Value Reference Range Comments FIBRINOGEN LEVEL (BEAKER) (test zket=723) 271 mg/dl 225-434 PROTHROMBIN [id number] 19:15:00 Test Item Value Reference Range Comments PROTIME (BEAKER) (test uhlc=891) 21.3 seconds 11.7-14.7 INR (BEAKER) (test kgve=859) 1.8 <=5.9 RECOMMENDED COUMADIN/WARFARIN INR THERAPY RANGESSTANDARD DOSE: 2.0 - 3.0 Includes: PROPHYLAXIS forvenous thrombosis, systemic embolization; TREATMENT for venous thrombosis and/or pulmonary embolus.HIGH RISK: Target INR is 2.5-3.5 for patients with mechanical heart valves.PLATELET [id number] 19:06:00 Test Item Value Reference Range Comments PLATELET COUNT (BEAKER) (test odha=455) 54 K/CU MM 150-450 BLOOD GAS, [id number] 18:49:00 Test Item Value Reference Range Comments PH ARTERIAL (BEAKER) (test pmcb=075) 7.46 7.35-7.45 PCO2 ARTERIAL (BEAKER) (test xlry=425) 32 mmHg 35-45 PO2 ARTERIAL (BEAKER) (test iboa=711) 228 mmHg 80-90 O2 SATURATION ARTERIAL (BEAKER) (test iseh=860) 99.6 % 96.0-97.0 HCO3 ARTERIAL (BEAKER) (test hrcf=335) 23 mmol/L 21-29 BASE EXCESS ARTERIAL (BEAKER) (test efbq=463) -1.0 mmol/L -2.0-3.0 PATIENT TEMPERATURE (BEAKER) (test rseu=9657) 34.0 C FIO2 (BEAKER) (test bglj=0212) 100.0 % HGB/HCT (H&H) - STAT [id number] 18:44:00 Test Item Value Reference Range Comments HEMOGLOBIN (BEAKER) (test xmyn=628) 10.1 g/dL 13.0-16.8 HEMATOCRIT (BEAKER) (test yvsq=420) 30.0 % 40.0-50.0 SODIUM NA-STAT [id number] 18:43:00 Test Item Value Reference Range Comments SODIUM (BEAKER) (test fnsm=298) 137 meq/L 135-148 POTASSIUM-STAT [id number] 18:43:00 Test Item Value Reference Range Comments POTASSIUM (BEAKER) (test gzqh=011) 5.0 meq/L 3.6-5.5 GLUCOSE-STAT [id number] 18:43:00 Test Item Value Reference Range Comments GLUCOSE RANDOM (BEAKER) (test neuz=056) 187 mg/dL 70-110 SODIUM NA-STAT [id number] 18:22:00 Test Item Value Reference Range Comments SODIUM (BEAKER) (test msyv=333) 140 meq/L 135-148 POTASSIUM-STAT [id number] 18:22:00 Test Item Value Reference Range Comments POTASSIUM (BEAKER) (test rpba=169) 4.7 meq/L 3.6-5.5 BLOOD GAS, [id number] 18:22:00 Test Item Value Reference Range Comments PH ARTERIAL (BEAKER) (test xvzh=147) 7.38 7.35-7.45 PCO2 ARTERIAL (BEAKER) (test ufyl=274) 43 mmHg 35-45 PO2 ARTERIAL (BEAKER) (test yzqa=176) 282 mmHg 80-90 O2 SATURATION ARTERIAL (BEAKER) (test fmim=906) 99.6 % 96.0-97.0 HCO3 ARTERIAL (BEAKER) (test cfiy=037) 26 mmol/L 21-29 BASE EXCESS ARTERIAL (BEAKER) (test msuj=504) -0.8 mmol/L -2.0-3.0 PATIENT TEMPERATURE (BEAKER) (test fumx=1754) 30.7 C FIO2 (BEAKER) (test meff=6581) 60.0 % GLUCOSE-STAT [id number] 18:22:00 Test Item Value Reference Range Comments GLUCOSE RANDOM (BEAKER) (test erla=019) 209 mg/dL 70-110 HGB/HCT (H&H) - STAT [id number] 18:22:00 Test Item Value Reference Range Comments HEMOGLOBIN (BEAKER) (test zoxe=550) 10.2 g/dL 13.0-16.8 HEMATOCRIT (BEAKER) (test azge=437) 30.0 % 40.0-50.0 BLOOD GAS, [id number] 17:57:00 Test Item Value Reference Range Comments PH ARTERIAL (BEAKER) (test tgub=435) 7.37 7.35-7.45 PCO2 ARTERIAL (BEAKER) (test abpr=703) 41 mmHg 35-45 PO2 ARTERIAL (BEAKER) (test bxre=700) 336 mmHg 80-90 O2 SATURATION ARTERIAL (BEAKER) (test sniu=785) 99.7 % 96.0-97.0 HCO3 ARTERIAL (BEAKER) (test vxkb=209) 26 mmol/L 21-29 BASE EXCESS ARTERIAL (BEAKER) (test nafp=313) -2.3 mmol/L -2.0-3.0 PATIENT TEMPERATURE (BEAKER) (test odbu=0708) 28.5 C FIO2 (BEAKER) (test gwvb=4683) 65.0 % GLUCOSE-STAT [id number] 17:57:00 Test Item Value Reference Range Comments GLUCOSE RANDOM (BEAKER) (test vbeq=523) 198 mg/dL 70-110 HGB/HCT (H&H) - STAT [id number] 17:57:00 Test Item Value Reference Range Comments HEMOGLOBIN (BEAKER) (test snlg=078) 10.3 g/dL 13.0-16.8 HEMATOCRIT (BEAKER) (test qnde=768) 30.0 % 40.0-50.0 SODIUM NA-STAT [id number] 17:56:00 Test Item Value Reference Range Comments SODIUM (BEAKER) (test zict=449) 138 meq/L 135-148 POTASSIUM-STAT [id number] 17:56:00 Test Item Value Reference Range Comments POTASSIUM (BEAKER) (test sogj=327) 4.7 meq/L 3.6-5.5 BLOOD GAS, [id number] 17:28:00 Test Item Value Reference Range Comments PH ARTERIAL (BEAKER) (test rxmh=662) 7.37 7.35-7.45 PCO2 ARTERIAL (BEAKER) (test hfax=033) 40 mmHg 35-45 PO2 ARTERIAL (BEAKER) (test lork=354) 337 mmHg 80-90 O2 SATURATION ARTERIAL (BEAKER) (test llvl=467) 99.7 % 96.0-97.0 HCO3 ARTERIAL (BEAKER) (test smlo=277) 25 mmol/L 21-29 BASE EXCESS ARTERIAL (BEAKER) (test bpcm=370) -2.5 mmol/L -2.0-3.0 PATIENT TEMPERATURE (BEAKER) (test apda=1868) 28.2 C FIO2 (BEAKER) (test zgdt=6828) 65.0 % GLUCOSE-STAT [id number] 17:28:00 Test Item Value Reference Range Comments GLUCOSE RANDOM (BEAKER) (test ugwt=068) 223 mg/dL 70-110 HGB/HCT (H&H) - STAT [id number] 17:28:00 Test Item Value Reference Range Comments HEMOGLOBIN (BEAKER) (test uizj=172) 10.1 g/dL 13.0-16.8 HEMATOCRIT (BEAKER) (test blkd=744) 30.0 % 40.0-50.0 SODIUM NA-STAT [id number] 17:27:00 Test Item Value Reference Range Comments SODIUM (BEAKER) (test xgja=829) 140 meq/L 135-148 POTASSIUM-STAT [id number] 17:27:00 Test Item Value Reference Range Comments POTASSIUM (BEAKER) (test fswc=096) 4.8 meq/L 3.6-5.5 THROMBOELASTOGRAPH ([id number])[id number] 17:02:00 Test Item Value Reference Range Comments TEG ACTIVATED CLOTTING TIME (BEAKER) minutes 4.0-7.0 No clot detected. (test tzhg=7294) TEG FIBRINOGEN ACTIVITY (BEAKER) (test degrees 61.0-73.0 No clot detected. rpnx=3148) TEG PLT. AGGREGATION (BEAKER) (test MM 55.0-65.0 No clot detected. gprp=8682) TEG FIBRINOLYSIS (BEAKER) (test % 0.0-5.0 No clot detected. wsfi=7370) TGH ACTIVATED CLOTTING TIME (BEAKER) 8.8 minutes 4.0-7.0 (test pwov=5958) TGH FIBRINOGEN ACTIVITY (BEAKER) (test 59.5 degrees 61.0-73.0 ckoo=2820) TGH PLT. AGGREGATION (BEAKER) (test 54.0 MM 55.0-65.0 qcae=7250) TGH FIBRINOLYSIS (BEAKER) (test 0.0 % 0.0-5.0 lvaj=5193) HGB/HCT (H&H) - STAT [id number] 17:01:00 Test Item Value Reference Range Comments HEMOGLOBIN (BEAKER) (test losd=508) 10.1 g/dL 13.0-16.8 HEMATOCRIT (BEAKER) (test agfm=263) 30.0 % 40.0-50.0 BLOOD GAS, [id number] 17:00:00 Test Item Value Reference Range Comments PH ARTERIAL (BEAKER) (test sjxm=311) 7.37 7.35-7.45 PCO2 ARTERIAL (BEAKER) (test putv=815) 39 mmHg 35-45 PO2 ARTERIAL (BEAKER) (test begd=048) 310 mmHg 80-90 O2 SATURATION ARTERIAL (BEAKER) (test mkho=008) 99.7 % 96.0-97.0 HCO3 ARTERIAL (BEAKER) (test cesp=352) 25 mmol/L 21-29 BASE EXCESS ARTERIAL (BEAKER) (test ccxc=394) -2.9 mmol/L -2.0-3.0 PATIENT TEMPERATURE (BEAKER) (test qqyw=1582) 28.5 C FIO2 (BEAKER) (test qyie=5669) 65.0 % GLUCOSE-STAT [id number] 17:00:00 Test Item Value Reference Range Comments GLUCOSE RANDOM (BEAKER) (test disx=658) 243 mg/dL 70-110 SODIUM NA-STAT [id number] 16:59:00 Test Item Value Reference Range Comments SODIUM (BEAKER) (test qerv=471) 139 meq/L 135-148 POTASSIUM-STAT [id number] 16:59:00 Test Item Value Reference Range Comments POTASSIUM (BEAKER) (test arfg=807) 4.6 meq/L 3.6-5.5 [id number] 16:47:00 Test Item Value Reference Range Comments PARTIAL THROMBOPLASTIN TIME (BEAKER) (test > seconds 22.5-36.0 tnzj=135) BLOOD GAS, [id number] 16:18:00 Test Item Value Reference Range Comments PH ARTERIAL (BEAKER) (test xsja=628) 7.50 7.35-7.45 PCO2 ARTERIAL (BEAKER) (test lbug=816) 30 mmHg 35-45 PO2 ARTERIAL (BEAKER) (test cdbh=797) 306 mmHg 80-90 O2 SATURATION ARTERIAL (BEAKER) (test rlmc=537) 99.8 % 96.0-97.0 HCO3 ARTERIAL (BEAKER) (test rvly=057) 25 mmol/L 21-29 BASE EXCESS ARTERIAL (BEAKER) (test kbon=447) 0.0 mmol/L -2.0-3.0 PATIENT TEMPERATURE (BEAKER) (test yzzh=6410) 27.9 C FIO2 (BEAKER) (test mhtd=9123) 65.0 % GLUCOSE-STAT [id number] 16:18:00 Test Item Value Reference Range Comments GLUCOSE RANDOM (BEAKER) (test ifds=834) 279 mg/dL 70-110 HGB/HCT (H&H) - STAT [id number] 16:18:00 Test Item Value Reference Range Comments HEMOGLOBIN (BEAKER) (test qdmd=514) 7.0 g/dL 13.0-16.8 HEMATOCRIT (BEAKER) (test npmj=433) 21.0 % 40.0-50.0 SODIUM NA-STAT [id number] 16:17:00 Test Item Value Reference Range Comments SODIUM (BEAKER) (test ljxk=442) 137 meq/L 135-148 POTASSIUM-STAT [id number] 16:17:00 Test Item Value Reference Range Comments POTASSIUM (BEAKER) (test uwxn=625) 4.6 meq/L 3.6-5.5 [id number] 16:15:00 Test Item Value Reference Range Comments FIBRINOGEN LEVEL (BEAKER) (test rmru=759) 255 mg/dl 225-434 PROTHROMBIN TIME/[id number] 16:14:00 Test Item Value Reference Range Comments PROTIME (BEAKER) (test eahz=156) 20.2 seconds 11.7-14.7 INR (BEAKER) (test uufc=936) 1.7 <=5.9 RECOMMENDED COUMADIN/WARFARIN INR THERAPY RANGESSTANDARD DOSE: 2.0 - 3.0 Includes: PROPHYLAXIS forvenous thrombosis, systemic embolization; TREATMENT for venous thrombosis and/or pulmonary embolus.HIGH RISK: Target INR is 2.5-3.5 for patients with mechanical heart valves.PLATELET [id number] 16:02:00 Test Item Value Reference Range Comments PLATELET COUNT (BEAKER) (test dwwg=318) 57 K/CU MM 150-450 CALCIUM, [id number] 15:51:00 Test Item Value Reference Range Comments CALCIUM IONIZED (BEAKER) (test qnto=506) 0.82 mmol/L 1.12-1.27 PH, BLOOD (BEAKER) (test zhrs=3936) 7.45 BLOOD GAS, [id number] 15:51:00 Test Item Value Reference Range Comments PH ARTERIAL (BEAKER) (test kwns=587) 7.45 7.35-7.45 PCO2 ARTERIAL (BEAKER) (test ypwq=359) 40 mmHg 35-45 PO2 ARTERIAL (BEAKER) (test wsus=649) 336 mmHg 80-90 O2 SATURATION ARTERIAL (BEAKER) (test waix=635) 99.8 % 96.0-97.0 HCO3 ARTERIAL (BEAKER) (test wcih=322) 28 mmol/L 21-29 BASE EXCESS ARTERIAL (BEAKER) (test qzuu=204) 3.1 mmol/L -2.0-3.0 PATIENT TEMPERATURE (BEAKER) (test lvlz=4598) 35.6 C FIO2 (BEAKER) (test dlcj=5462) 100.0 % GLUCOSE-STAT [id number] 15:51:00 Test Item Value Reference Range Comments GLUCOSE RANDOM (BEAKER) (test yvps=024) 190 mg/dL 70-110 HGB/HCT (H&H) - STAT [id number] 15:51:00 Test Item Value Reference Range Comments HEMOGLOBIN (BEAKER) (test ltvr=215) 7.6 g/dL 13.0-16.8 HEMATOCRIT (BEAKER) (test njms=357) 22.0 % 40.0-50.0 POTASSIUM-STAT [id number] 15:51:00 Test Item Value Reference Range Comments POTASSIUM (BEAKER) (test hfgn=488) 5.6 meq/L 3.6-5.5 SODIUM NA-STAT [id number] 15:50:00 Test Item Value Reference Range Comments SODIUM (BEAKER) (test jeqf=747) 139 meq/L 135-148 BLOOD GAS, [id number] 15:43:00 Test Item Value Reference Range Comments PH ARTERIAL (BEAKER) (test kckw=546) 7.45 7.35-7.45 PCO2 ARTERIAL (BEAKER) (test ncsb=757) 39 mmHg 35-45 PO2 ARTERIAL (BEAKER) (test zrhq=417) 315 mmHg 80-90 O2 SATURATION ARTERIAL (BEAKER) (test dudv=083) 99.7 % 96.0-97.0 HCO3 ARTERIAL (BEAKER) (test xqhj=455) 27 mmol/L 21-29 BASE EXCESS ARTERIAL (BEAKER) (test wjxl=886) 1.9 mmol/L -2.0-3.0 PATIENT TEMPERATURE (BEAKER) (test hhpj=4527) 34.1 C FIO2 (BEAKER) (test bkap=4250) 75.0 % GLUCOSE-STAT [id number] 15:43:00 Test Item Value Reference Range Comments GLUCOSE RANDOM (BEAKER) (test qnbe=412) 189 mg/dL 70-110 HGB/HCT (H&H) - STAT [id number] 15:43:00 Test Item Value Reference Range Comments HEMOGLOBIN (BEAKER) (test jmxe=518) 8.0 g/dL 13.0-16.8 HEMATOCRIT (BEAKER) (test roed=780) 24.0 % 40.0-50.0 POTASSIUM-STAT [id number] 15:43:00 Test Item Value Reference Range Comments POTASSIUM (BEAKER) (test rhtd=185) 5.7 meq/L 3.6-5.5 SODIUM NA-STAT [id number] 15:42:00 Test Item Value Reference Range Comments SODIUM (BEAKER) (test bgnk=652) 136 meq/L 135-148 SODIUM NA-STAT [id number] 15:06:00 Test Item Value Reference Range Comments SODIUM (BEAKER) (test xhjv=044) 139 meq/L 135-148 BLOOD GAS, [id number] 15:06:00 Test Item Value Reference Range Comments PH ARTERIAL (BEAKER) (test ifjo=097) 7.45 7.35-7.45 PCO2 ARTERIAL (BEAKER) (test ijsg=960) 40 mmHg 35-45 PO2 ARTERIAL (BEAKER) (test vgnh=908) 293 mmHg 80-90 O2 SATURATION ARTERIAL (BEAKER) (test wxby=000) 99.7 % 96.0-97.0 HCO3 ARTERIAL (BEAKER) (test zabr=040) 31 mmol/L 21-29 BASE EXCESS ARTERIAL (BEAKER) (test xfwg=719) 3.6 mmol/L -2.0-3.0 PATIENT TEMPERATURE (BEAKER) (test qkdt=7716) 26.7 C FIO2 (BEAKER) (test gbvh=9618) 60.0 % POTASSIUM-STAT [id number] 15:06:00 Test Item Value Reference Range Comments POTASSIUM (BEAKER) (test tvpj=535) 5.8 meq/L 3.6-5.5 GLUCOSE-STAT [id number] 15:06:00 Test Item Value Reference Range Comments GLUCOSE RANDOM (BEAKER) (test zvma=433) 192 mg/dL 70-110 HGB/HCT (H&H) - STAT [id number] 15:06:00 Test Item Value Reference Range Comments HEMOGLOBIN (BEAKER) (test rnil=177) 8.2 g/dL 13.0-16.8 HEMATOCRIT (BEAKER) (test wzpn=348) 24.0 % 40.0-50.0 POTASSIUM-STAT [id number] 14:41:00 Test Item Value Reference Range Comments POTASSIUM (BEAKER) (test pnli=366) 5.2 meq/L 3.6-5.5 BLOOD GAS, [id number] 14:41:00 Test Item Value Reference Range Comments PH ARTERIAL (BEAKER) (test fobt=038) 7.43 7.35-7.45 PCO2 ARTERIAL (BEAKER) (test uilq=445) 40 mmHg 35-45 PO2 ARTERIAL (BEAKER) (test hppc=761) 321 mmHg 80-90 O2 SATURATION ARTERIAL (BEAKER) (test zkcn=330) 99.7 % 96.0-97.0 HCO3 ARTERIAL (BEAKER) (test sels=836) 29 mmol/L 21-29 BASE EXCESS ARTERIAL (BEAKER) (test zazi=028) 2.1 mmol/L -2.0-3.0 PATIENT TEMPERATURE (BEAKER) (test hihp=1353) 26.6 C FIO2 (BEAKER) (test jlgz=5200) 60.0 % SODIUM NA-STAT [id number] 14:41:00 Test Item Value Reference Range Comments SODIUM (BEAKER) (test tsrn=368) 134 meq/L 135-148 GLUCOSE-STAT [id number] 14:41:00 Test Item Value Reference Range Comments GLUCOSE RANDOM (BEAKER) (test hram=904) 195 mg/dL 70-110 HGB/HCT (H&H) - STAT [id number] 14:41:00 Test Item Value Reference Range Comments HEMOGLOBIN (BEAKER) (test abms=571) 8.2 g/dL 13.0-16.8 HEMATOCRIT (BEAKER) (test gaoo=679) 24.0 % 40.0-50.0 BLOOD GAS, [id number] 14:10:00 Test Item Value Reference Range Comments PH ARTERIAL (BEAKER) (test sctd=923) 7.41 7.35-7.45 PCO2 ARTERIAL (BEAKER) (test alwj=177) 41 mmHg 35-45 PO2 ARTERIAL (BEAKER) (test xmqs=788) 313 mmHg 80-90 O2 SATURATION ARTERIAL (BEAKER) (test afom=879) 99.7 % 96.0-97.0 HCO3 ARTERIAL (BEAKER) (test ampv=056) 29 mmol/L 21-29 BASE EXCESS ARTERIAL (BEAKER) (test phan=088) 1.4 mmol/L -2.0-3.0 PATIENT TEMPERATURE (BEAKER) (test rdkp=5936) 27.0 C FIO2 (BEAKER) (test cvyn=7849) 60.0 % GLUCOSE-STAT [id number] 14:10:00 Test Item Value Reference Range Comments GLUCOSE RANDOM (BEAKER) (test wgah=247) 177 mg/dL 70-110 HGB/HCT (H&H) - STAT [id number] 14:10:00 Test Item Value Reference Range Comments HEMOGLOBIN (BEAKER) (test ould=855) 8.5 g/dL 13.0-16.8 HEMATOCRIT (BEAKER) (test uewd=288) 25.0 % 40.0-50.0 SODIUM NA-STAT [id number] 14:09:00 Test Item Value Reference Range Comments SODIUM (BEAKER) (test yfds=331) 136 meq/L 135-148 POTASSIUM-STAT [id number] 14:09:00 Test Item Value Reference Range Comments POTASSIUM (BEAKER) (test qosk=416) 5.0 meq/L 3.6-5.5 SODIUM NA-STAT [id number] 13:39:00 Test Item Value Reference Range Comments SODIUM (BEAKER) (test accq=135) 136 meq/L 135-148 POTASSIUM-STAT [id number] 13:39:00 Test Item Value Reference Range Comments POTASSIUM (BEAKER) (test snou=174) 5.0 meq/L 3.6-5.5 BLOOD GAS, [id number] 13:39:00 Test Item Value Reference Range Comments PH ARTERIAL (BEAKER) (test ckoh=196) 7.46 7.35-7.45 PCO2 ARTERIAL (BEAKER) (test fcra=388) 37 mmHg 35-45 PO2 ARTERIAL (BEAKER) (test fmes=599) 246 mmHg 80-90 O2 SATURATION ARTERIAL (BEAKER) (test jigj=376) 99.6 % 96.0-97.0 HCO3 ARTERIAL (BEAKER) (test zgqw=366) 29 mmol/L 21-29 BASE EXCESS ARTERIAL (BEAKER) (test dvdi=438) 1.7 mmol/L -2.0-3.0 PATIENT TEMPERATURE (BEAKER) (test szzz=2063) 26.5 C FIO2 (BEAKER) (test tpzi=4203) 60.0 % GLUCOSE-STAT [id number] 13:39:00 Test Item Value Reference Range Comments GLUCOSE RANDOM (BEAKER) (test vuxk=297) 179 mg/dL 70-110 HGB/HCT (H&H) - STAT [id number] 13:39:00 Test Item Value Reference Range Comments HEMOGLOBIN (BEAKER) (test fppv=354) 8.1 g/dL 13.0-16.8 HEMATOCRIT (BEAKER) (test uhdg=192) 24.0 % 40.0-50.0 CALCIUM, [id number] 12:31:00 Test Item Value Reference Range Comments CALCIUM IONIZED (BEAKER) (test ibzj=020) 1.09 mmol/L 1.12-1.27 PH, BLOOD (BEAKER) (test smvt=1162) 7.45 GLUCOSE-STAT [id number] 12:30:00 Test Item Value Reference Range Comments GLUCOSE RANDOM (BEAKER) (test vwwx=750) 93 mg/dL 70-110 SODIUM NA-STAT [id number] 12:30:00 Test Item Value Reference Range Comments SODIUM (BEAKER) (test thzr=300) 140 meq/L 135-148 POTASSIUM-STAT [id number] 12:30:00 Test Item Value Reference Range Comments POTASSIUM (BEAKER) (test manv=296) 3.9 meq/L 3.6-5.5 BLOOD GAS, [id number] 12:30:00 Test Item Value Reference Range Comments PH ARTERIAL (BEAKER) (test infv=732) 7.48 7.35-7.45 PCO2 ARTERIAL (BEAKER) (test bxtv=350) 39 mmHg 35-45 PO2 ARTERIAL (BEAKER) (test xtnv=829) 128 mmHg 80-90 O2 SATURATION ARTERIAL (BEAKER) (test bpgl=126) 98.9 % 96.0-97.0 HCO3 ARTERIAL (BEAKER) (test rrqu=425) 29 mmol/L 21-29 BASE EXCESS ARTERIAL (BEAKER) (test tdtm=183) 4.1 mmol/L -2.0-3.0 PATIENT TEMPERATURE (BEAKER) (test njrw=5769) 35.0 C FIO2 (BEAKER) (test heag=2676) 100.0 % HGB/HCT (H&H) - STAT [id number] 12:30:00 Test Item Value Reference Range Comments HEMOGLOBIN (BEAKER) (test dies=942) 9.3 g/dL 13.0-16.8 HEMATOCRIT (BEAKER) (test zapp=776) 27.0 % 40.0-50.0 HEMOGLOBIN [id number] 10:02:00 Test Item Value Reference Range Comments HEMOGLOBIN A1C (BEAKER) (test maxp=181) 4.4 % 4.3-6.1 POCT-GLUCOSE [id number] 09:52:00 Test Item Value Reference Range Comments POC-GLUCOSE METER (BEAKER) 115 mg/dL 70-110 TESTED AT [facility] [address] [facility] (test zfmk=2037) [facility] [address] PROTHROMBIN [id number] 02:41:00 Test Item Value Reference Range Comments PROTIME (BEAKER) (test yzxk=831) 14.9 seconds 11.7-14.7 INR (BEAKER) (test spyz=689) 1.2 <=5.9 RECOMMENDED COUMADIN/WARFARIN INR THERAPY RANGESSTANDARD DOSE: 2.0 - 3.0 Includes: PROPHYLAXIS forvenous thrombosis, systemic embolization; TREATMENT for venous thrombosis and/or pulmonary embolus.HIGH RISK: Target INR is 2.5-3.5 for patients with mechanical heart valves.BASIC METABOLIC [id number] 00:29: 00 Test Item Value Reference Range Comments SODIUM (BEAKER) (test 137 meq/L 136-145 fjms=261) POTASSIUM (BEAKER) (test 4.4 meq/L 3.5-5.1 Specimen slightly dcla=326) hemolyzed CHLORIDE (BEAKER) (test 100 meq/L 98-107 saom=954) CO2 (BEAKER) (test 25 meq/L 22-29 wboy=176) BLOOD UREA NITROGEN 32 mg/dL 7-21 (BEAKER) (test ppzi=171) CREATININE (BEAKER) (test 5.79 mg/dL 0.57-1.25 Specimen slightly yxrp=998) hemolyzed GLUCOSE RANDOM (BEAKER) 126 mg/dL 70-105 (test xdyy=763) CALCIUM (BEAKER) (test 9.8 mg/dL 8.4-10.2 fgti=991) EGFR (BEAKER) (test 12 mL/min/1.73 sq m ESTIMATED GFR IS NOT bvvh=0000) ACCURATE CREATININE CLEARANCE IN PREDICTING GLOMERULAR FILTRATION RATE. ESTIMATED GFR IS NOT APPLICABLE FOR DIALYSIS PATIENTS. [id number] 00:22:00 Test Item Value Reference Range Comments MAGNESIUM (BEAKER) (test 2.5 mg/dL 1.6-2.6 Specimen slightly hemolyzed plxh=912) [id number] 00:14:00 Test Item Value Reference Range Comments PARTIAL THROMBOPLASTIN TIME (BEAKER) (test 38.6 seconds 22.5-36.0 ictq=982) CBC W/PLT COUNT & AUTO [id number] 00:07:00 Test Item Value Reference Range Comments WHITE BLOOD CELL COUNT (BEAKER) (test rrqf=839) 5.2 K/ L 3.5-10.5 RED BLOOD CELL COUNT (BEAKER) (test qbou=984) 3.16 M/ L 4.63-6.08 HEMOGLOBIN (BEAKER) (test mlvv=386) 10.1 GM/DL 13.7-17.5 HEMATOCRIT (BEAKER) (test zaxm=746) 31.4 % 40.1-51.0 MEAN CORPUSCULAR VOLUME (BEAKER) (test lieb=895) 99.4 fL 79.0-92.2 MEAN CORPUSCULAR HEMOGLOBIN (BEAKER) (test 32.0 pg 25.7-32.2 ybim=037) MEAN CORPUSCULAR HEMOGLOBIN CONC (BEAKER) (test 32.2 GM/DL 32.3-36.5 nmnh=537) RED CELL DISTRIBUTION WIDTH (BEAKER) (test 16.7 % 11.6-14.4 arwr=639) PLATELET COUNT (BEAKER) (test ffka=108) 112 K/CU MM 150-450 MEAN PLATELET VOLUME (BEAKER) (test vqdx=612) 9.6 fL 9.4-12.4 NUCLEATED RED BLOOD CELLS (BEAKER) (test 0 /100 WBC 0-0 xhsd=794) NEUTROPHILS RELATIVE PERCENT (BEAKER) (test 69 % vuux=200) LYMPHOCYTES RELATIVE PERCENT (BEAKER) (test 19 % uhas=660) MONOCYTES RELATIVE PERCENT (BEAKER) (test 10 % namq=668) EOSINOPHILS RELATIVE PERCENT (BEAKER) (test 1 % bxgt=605) BASOPHILS RELATIVE PERCENT (BEAKER) (test 1 % udva=938) NEUTROPHILS ABSOLUTE COUNT (BEAKER) (test 3.58 K/ L 1.78-5.38 fniq=472) LYMPHOCYTES ABSOLUTE COUNT (BEAKER) (test 0.98 K/ L 1.32-3.57 dxlg=420) MONOCYTES ABSOLUTE COUNT (BEAKER) (test 0.49 K/ L 0.30-0.82 imeb=990) EOSINOPHILS ABSOLUTE COUNT (BEAKER) (test 0.07 K/ L 0.04-0.54 acsz=872) BASOPHILS ABSOLUTE COUNT (BEAKER) (test 0.04 K/ L 0.01-0.08 cbix=661) IMMATURE GRANULOCYTES-RELATIVE PERCENT (BEAKER) 0 % 0-1 (test abbc=7864) [id number] 17:03:00 Test Item Value Reference Range Comments THYROID STIMULATING HORMONE (BEAKER) (test 1.30 uIU/mL 0.35-4.94 weds=707) HEPATIC FUNCTION [id number] 16:43:00 Test Item Value Reference Range Comments TOTAL PROTEIN (BEAKER) (test lbkm=034) 8.0 gm/dL 6.0-8.3 ALBUMIN (BEAKER) (test dxdp=4478) 3.9 g/dL 3.5-5.0 BILIRUBIN TOTAL (BEAKER) (test cxon=730) 1.3 mg/dL 0.2-1.2 BILIRUBIN DIRECT (BEAKER) (test kbja=264) 0.7 mg/dL 0.1-0.5 ALKALINE PHOSPHATASE (BEAKER) (test lmxi=471) 74 U/L 40-150 AST (SGOT) (BEAKER) (test pbur=636) 60 U/L 5-34 ALT (SGPT) (BEAKER) (test csrm=067) 69 U/L 6-55 BASIC METABOLIC [id number] 15:47:00 Test Item Value Reference Range Comments SODIUM (BEAKER) (test 135 meq/L 136-145 ehaz=233) POTASSIUM (BEAKER) (test 4.5 meq/L 3.5-5.1 wdmn=503) CHLORIDE (BEAKER) (test 94 meq/L 98-107 hbol=289) CO2 (BEAKER) (test 23 meq/L 22-29 tjxi=851) BLOOD UREA NITROGEN 78 mg/dL 7-21 (BEAKER) (test xuzz=242) CREATININE (BEAKER) (test 10.41 mg/dL 0.57-1.25 zgxp=070) GLUCOSE RANDOM (BEAKER) 111 mg/dL 70-105 (test coby=367) CALCIUM (BEAKER) (test 9.9 mg/dL 8.4-10.2 rxgk=764) EGFR (BEAKER) (test 6 mL/min/1.73 sq m ESTIMATED GFR IS NOT lpoa=3224) ACCURATE CREATININE CLEARANCE IN PREDICTING GLOMERULAR FILTRATION RATE. ESTIMATED GFR IS NOT APPLICABLE FOR DIALYSIS PATIENTS. [id number] 14:57:00 Test Item Value Reference Range Comments PARTIAL THROMBOPLASTIN TIME (BEAKER) (test 82.9 seconds 22.5-36.0 udpj=357) CBC W/PLT COUNT & AUTO [id number] 14:48:00 Test Item Value Reference Range Comments WHITE BLOOD CELL COUNT (BEAKER) (test zfhj=183) 6.6 K/ L 3.5-10.5 RED BLOOD CELL COUNT (BEAKER) (test qbqh=904) 3.02 M/ L 4.63-6.08 HEMOGLOBIN (BEAKER) (test dbml=219) 9.9 GM/DL 13.7-17.5 HEMATOCRIT (BEAKER) (test mcro=968) 29.3 % 40.1-51.0 MEAN CORPUSCULAR VOLUME (BEAKER) (test ljpp=185) 97.0 fL 79.0-92.2 MEAN CORPUSCULAR HEMOGLOBIN (BEAKER) (test 32.8 pg 25.7-32.2 gcyy=415) MEAN CORPUSCULAR HEMOGLOBIN CONC (BEAKER) (test 33.8 GM/DL 32.3-36.5 xqtd=793) RED CELL DISTRIBUTION WIDTH (BEAKER) (test 16.7 % 11.6-14.4 wfxd=687) PLATELET COUNT (BEAKER) (test krwb=817) 116 K/CU MM 150-450 MEAN PLATELET VOLUME (BEAKER) (test pgps=549) 9.9 fL 9.4-12.4 NUCLEATED RED BLOOD CELLS (BEAKER) (test 0 /100 WBC 0-0 bted=206) NEUTROPHILS RELATIVE PERCENT (BEAKER) (test 68 % imth=648) LYMPHOCYTES RELATIVE PERCENT (BEAKER) (test 20 % qubs=003) MONOCYTES RELATIVE PERCENT (BEAKER) (test 10 % dufc=157) EOSINOPHILS RELATIVE PERCENT (BEAKER) (test 1 % qddz=426) BASOPHILS RELATIVE PERCENT (BEAKER) (test 0 % fqth=488) NEUTROPHILS ABSOLUTE COUNT (BEAKER) (test 4.44 K/ L 1.78-5.38 eyid=645) LYMPHOCYTES ABSOLUTE COUNT (BEAKER) (test 1.33 K/ L 1.32-3.57 fpsl=267) MONOCYTES ABSOLUTE COUNT (BEAKER) (test 0.66 K/ L 0.30-0.82 mdcv=332) EOSINOPHILS ABSOLUTE COUNT (BEAKER) (test 0.06 K/ L 0.04-0.54 lkqa=365) BASOPHILS ABSOLUTE COUNT (BEAKER) (test 0.02 K/ L 0.01-0.08 qjuq=610) IMMATURE GRANULOCYTES-RELATIVE PERCENT (BEAKER) 1 % 0-1 (test pylh=9521) POCT-GLUCOSE [id number] 11:13:00 Test Item Value Reference Range Comments POC-GLUCOSE METER (BEAKER) 207 mg/dL 70-110 TESTED AT [address] (test ebms=2643) [facility] [address] POCT-GLUCOSE [id number] 08:08:00 Test Item Value Reference Range Comments POC-GLUCOSE METER (BEAKER) 124 mg/dL 70-110 TESTED AT [address] (test iwey=7577) [facility] [address] [id number] 06:51:00 Test Item Value Reference Range Comments PARTIAL THROMBOPLASTIN TIME (BEAKER) (test 54.6 seconds 22.5-36.0 mqcn=357) HEPATITIS B SURFACE [id number] 00:28:00 Test Item Value Reference Range Comments HEPATITIS B SURFACE ANTIGEN (2) (BEAKER) (test Nonreactive Nonreactive yviq=2613) [id number] 00:06:00 Test Item Value Reference Range Comments PHOSPHORUS (BEAKER) (test yqya=597) 3.2 mg/dL 2.3-4.7 [id number] 00:03:00 Test Item Value Reference Range Comments PARTIAL THROMBOPLASTIN TIME (BEAKER) (test 36.0 seconds 22.5-36.0 obuq=875) CBC W/PLT COUNT & AUTO [id number] 23:45:00 Test Item Value Reference Range Comments WHITE BLOOD CELL COUNT (BEAKER) (test uxki=603) 5.8 K/ L 3.5-10.5 RED BLOOD CELL COUNT (BEAKER) (test pzzb=689) 2.99 M/ L 4.63-6.08 HEMOGLOBIN (BEAKER) (test lsmp=075) 9.7 GM/DL 13.7-17.5 HEMATOCRIT (BEAKER) (test rhzb=086) 29.3 % 40.1-51.0 MEAN CORPUSCULAR VOLUME (BEAKER) (test ngci=373) 98.0 fL 79.0-92.2 MEAN CORPUSCULAR HEMOGLOBIN (BEAKER) (test 32.4 pg 25.7-32.2 cpmc=967) MEAN CORPUSCULAR HEMOGLOBIN CONC (BEAKER) (test 33.1 GM/DL 32.3-36.5 iflz=141) RED CELL DISTRIBUTION WIDTH (BEAKER) (test 16.5 % 11.6-14.4 xfau=669) PLATELET COUNT (BEAKER) (test fvbi=064) 103 K/CU MM 150-450 MEAN PLATELET VOLUME (BEAKER) (test xdgm=129) 9.5 fL 9.4-12.4 NUCLEATED RED BLOOD CELLS (BEAKER) (test 0 /100 WBC 0-0 palq=218) NEUTROPHILS RELATIVE PERCENT (BEAKER) (test 66 % rbjt=827) LYMPHOCYTES RELATIVE PERCENT (BEAKER) (test 22 % rihi=898) MONOCYTES RELATIVE PERCENT (BEAKER) (test 10 % wrop=468) EOSINOPHILS RELATIVE PERCENT (BEAKER) (test 2 % vaex=503) BASOPHILS RELATIVE PERCENT (BEAKER) (test 1 % uxvm=270) NEUTROPHILS ABSOLUTE COUNT (BEAKER) (test 3.79 K/ L 1.78-5.38 ljof=645) LYMPHOCYTES ABSOLUTE COUNT (BEAKER) (test 1.26 K/ L 1.32-3.57 ozmj=662) MONOCYTES ABSOLUTE COUNT (BEAKER) (test 0.59 K/ L 0.30-0.82 ivdm=871) EOSINOPHILS ABSOLUTE COUNT (BEAKER) (test 0.10 K/ L 0.04-0.54 ptka=739) BASOPHILS ABSOLUTE COUNT (BEAKER) (test 0.03 K/ L 0.01-0.08 naat=881) IMMATURE GRANULOCYTES-RELATIVE PERCENT (BEAKER) 0 % 0-1 (test srgh=8505) POCT-GLUCOSE [id number] 17:39:00 Test Item Value Reference Range Comments POC-GLUCOSE METER (BEAKER) 116 mg/dL 70-110 TESTED AT [address] (test bqoa=8869) [facility] [address] [id number] 15:35:00 Test Item Value Reference Range Comments THYROID STIMULATING HORMONE (BEAKER) (test 1.39 uIU/mL 0.35-4.94 jxso=859) [id number] 15:06:00 Test Item Value Reference Range Comments PARTIAL THROMBOPLASTIN TIME (BEAKER) (test 31.0 seconds 22.5-36.0 vhdw=796) Prior to initiating heparinPROTHROMBIN TIME/[id number] 15:05:00 Test Item Value Reference Range Comments PROTIME (BEAKER) (test bdmm=123) 14.4 seconds 11.7-14.7 INR (BEAKER) (test yymr=165) 1.1 <=5.9 RECOMMENDED COUMADIN/WARFARIN INR THERAPY RANGESSTANDARD DOSE: 2.0 - 3.0 Includes: PROPHYLAXIS forvenous thrombosis, systemic embolization; TREATMENT for venous thrombosis and/or pulmonary embolus.HIGH RISK: Target INR is 2.5-3.5 for patients with mechanical heart valves.PLATELET [id number] 14:52:00 Test Item Value Reference Range Comments PLATELET COUNT (BEAKER) (test hbul=847) 109 K/CU MM 150-450 POCT-GLUCOSE [id number] 12:00:00 Test Item Value Reference Range Comments POC-GLUCOSE METER (GAELAKER) 186 mg/dL 70-110 TESTED AT [facility] [address] (test gpzr=5379) [facility] [address] RAD, CHEST, 1 VIEW, NON [id number] 11:43:00Reason for exam:->SOB, known severe MRShould this be performed at the bedside?->YesFINAL REPORT Chest one view AP 01/08/2018 11:42 AM CLINICAL INDICATION: SOB, known severe MR COMPARISON: 12/02/2017 IMPRESSION: Cardiomediastinal contours are stable. There is mild pulmonary edema. There are trace bilateral pleural effusions. Signed: Yevgeniy Anderson Verified Date/Time: 01/08/2018 11: 43:52 Reading Location: [facility] Radiology Reading Room RAPID [id number] 10 :04:00 Test Item Value Reference Range Comments RAPID CKMB (BEAKER) (test gvds=3197) 1.5 ng/mL 0.0-4.3 RAPID TROPONIN [id number] 10:04:00 Test Item Value Reference Range Comments RAPID TROPONIN I (BEAKER) (test nyoo=0232) < ng/mL <0.05 RAD, CHEST, 2 [id number] 10:00:00Reason for exam:->Chest PainFINAL REPORT Chest two views Discussion: Heart size upper limits of normal. Bilateral interstitial edema with small bilateral effusions. No pneumothorax. Bones and soft tissues unremarkable. Signed: Rhea Colindres Verified Date/Time: 12/02/2017 10:00:39 Reading Location:[facility] Radiology Reading Room B-TYPE NATRIURETIC FACTOR (BNP)2017-12-02 09:56:00 Test Item Value Reference Range Comments B-TYPE NATRIURETIC PEPTIDE (BEAKER) (test 1990 pg/mL 0-100 kiiq=066) BASIC METABOLIC [id number] 09:52:00 Test Item Value Reference Range Comments SODIUM (BEAKER) (test 141 meq/L 135-148 yvie=552) POTASSIUM (BEAKER) (test 3.9 meq/L 3.6-5.5 zndu=657) CHLORIDE (BEAKER) (test 94 meq/L 98-106 hsod=262) CO2 (BEAKER) (test 28 meq/L 24-32 genj=509) BLOOD UREA NITROGEN 59 mg/dL 10-26 (BEAKER) (test urtf=776) CREATININE (BEAKER) (test 8.47 mg/dL 0.50-1.20 iqws=137) GLUCOSE RANDOM (BEAKER) 89 mg/dL 70-110 (test rlig=654) CALCIUM (BEAKER) (test 9.5 mg/dL 8.5-10.5 jpqo=446) EGFR (BEAKER) (test 8 mL/min/1.73 sq m ESTIMATED GFR IS NOT fdah=6540) ACCURATE CREATININE CLEARANCE IN PREDICTING GLOMERULAR FILTRATION RATE. ESTIMATED GFR IS NOT APPLICABLE FOR DIALYSIS PATIENTS. [id number] 09:51:00 Test Item Value Reference Range Comments MAGNESIUM (BEAKER) (test lnjh=289) 1.7 mg/dL 1.5-3.0 CBC W/PLT COUNT & AUTO [id number] 09:50:00 Test Item Value Reference Range Comments WHITE BLOOD CELL COUNT (BEAKER) (test bpxo=098) 5.7 10e3/ L 4.0-10.0 RED BLOOD CELL COUNT (BEAKER) (test ssxt=895) 2.81 10e6/ L 4.20-5.80 HEMOGLOBIN (BEAKER) (test zick=689) 9.1 g/dL 13.0-16.8 HEMATOCRIT (BEAKER) (test hydu=908) 26.7 % 40.0-50.0 MEAN CORPUSCULAR VOLUME (BEAKER) (test 94.8 fL 82.0-98.0 iajs=728) MEAN CORPUSCULAR HEMOGLOBIN (BEAKER) (test 32.4 pg 27.0-33.0 tazv=000) MEAN CORPUSCULAR HEMOGLOBIN CONC (BEAKER) (test 34.1 g/dL 32.0-36.0 atpu=577) RED CELL DISTRIBUTION WIDTH (BEAKER) (test 12.6 % 10.3-14.2 dcpw=846) PLATELET COUNT (BEAKER) (test pmdk=529) 120 10e3/ L 150-430 MEAN PLATELET VOLUME (BEAKER) (test zjhk=479) 7.6 fL 6.5-10.5 NEUTROPHILS RELATIVE PERCENT (BEAKER) (test 72 % gxro=585) LYMPHOCYTES RELATIVE PERCENT (BEAKER) (test 17 % xtyy=033) MONOCYTES RELATIVE PERCENT (BEAKER) (test 9 % lsgs=634) EOSINOPHILS RELATIVE PERCENT (BEAKER) (test 2 % sfiu=795) BASOPHILS RELATIVE PERCENT (BEAKER) (test 0 % cvog=711) NEUTROPHILS ABSOLUTE COUNT (BEAKER) (test 4.04 10e3/ L 1.80-8.00 nnew=762) LYMPHOCYTES ABSOLUTE COUNT (BEAKER) (test 0.97 10e3/ L 1.48-4.50 tswy=023) MONOCYTES ABSOLUTE COUNT (BEAKER) (test 0.53 10e3/ L 0.00-1.30 vvfg=434) EOSINOPHILS ABSOLUTE COUNT (BEAKER) (test 0.10 10e3/ L 0.00-0.50 gjxj=144) BASOPHILS ABSOLUTE COUNT (BEAKER) (test 0.02 10e3/ L 0.00-0.20 hgan=886) CD4/CD8 Ratio [id number] 08:04:00 Test Item Value Reference Range Comments Absolute CD 4 [place] (test jsse=812294) 188 /uL 359-1519 % CD 4 Pos. Lymph. (test oybs=939238) 37.6 % 30.8-58.5 Abs. CD 8 Suppressor (test vrro=797883) 183 /uL 109-897 % CD 8 Pos. Lymph. (test mpqt=429473) 36.6 % 12.0-35.5 CD4/CD8 Ratio (test hfge=086139) 1.03 0.92-3.72 WBC (test qsiy=561951) 5.0 x10E3/uL 3.4-10.8 RBC (test cqus=587708) 3.00 x10E6/uL 4.14-5.80 Hemoglobin (test ctao=279499) 9.6 g/dL 13.0-17.7 Hematocrit (test sxxu=420282) 27.6 % 37.5-51.0 MCV (test ibyj=417536) 92 fL 79-97 MCH (test nzcg=536411) 32.0 pg 26.6-33.0 MCHC (test ekqp=873585) 34.8 g/dL 31.5-35.7 RDW (test lwej=895165) 15.5 % 12.3-15.4 Platelets (test yxam=330275) 113 x10E3/uL 150-379 Neutrophils (test rhsv=076940) 84 % Not Estab. Lymphs (test ejpe=555629) 9 % Not Estab. Monocytes (test ebwe=817101) 6 % Not Estab. Eos (test mfds=696226) 1 % Not Estab. Basos (test lxsa=913811) 0 % Not Estab. Neutrophils (Absolute) (test hddb=363125) 4.2 x10E3/uL 1.4-7.0 Lymphs (Absolute) (test fzdl=431325) 0.5 x10E3/uL 0.7-3.1 Monocytes(Absolute) (test ormv=211239) 0.3 x10E3/uL 0.1-0.9 Eos (Absolute) (test guxk=924305) 0.0 x10E3/uL 0.0-0.4 Baso (Absolute) (test ttpg=402378) 0.0 x10E3/uL 0.0-0.2 Immature Granulocytes (test gslu=961759) 0 % Not Estab. Immature Grans (Abs) (test twbh=197786) 0.0 x10E3/uL 0.0-0.1 Culture, Blood [id number] 08:42:00Specimen: BloodCollected: 11/19/2017 00 :21 Status: Final Last Updated: 11/24/2017 08:42 Culture Result (Final) ( Final) No Growth After 5 DaysCulture, Blood [id number] 08:42: 00Specimen: BloodCollected: 11/18/2017 20:30 Status: Final Last Updated: 08:42 Culture Result (Final) (Final) No Growth After 5 DaysPOC Glucose, [id number] 11:51:00 Test Item Value Reference Range Comments POC Glucose (test 148 mg/dL 70-115 Notify RN or MDIf you consider code=POCGLUC) your patient critically ill, the [facility] Accu-Chek InformII metershould not be used for Glucose determinations.Draw a venous Glucose and send to the Main Lab for Analysis. CK [id number] 07:42:00 Test Item Value Reference Range Comments CK (test code=CK) na U/L 39-308 CKMB (test code=CKMB) 4.0 ng/mL 0.0-4.9 CKMB% (test code=CKMBP) 0.0 % 0.0-3.4 [id number] 07:39:00 Test Item Value Reference Range Comments NT ProBnp (test code=PBNP) >58323 pg/mL 0-124 Troponin [id number] 07:18:00 Test Item Value Reference Range Comments Troponin T (test code=MADHAV) 0.103 ng/mL 0.000-0.090 Lactate [id number] 07:18:00 Test Item Value Reference Range Comments LDH (test code=LDH) 271 U/L 135-225 POC Glucose, [id number] 06:50:00 Test Item Value Reference Range Comments POC Glucose (test 154 mg/dL 70-115 Notify RN or MDIf you consider code=POCGLUC) your patient critically ill, the [facility] Accu-Chek InformII metershould not be used for Glucose determinations.Draw a venous Glucose and send to the Main Lab for Analysis. CK [id number] 01:08:00 Test Item Value Reference Range Comments CK (test code=CK) na U/L 39-308 CKMB (test code=CKMB) 3.6 ng/mL 0.0-4.9 CKMB% (test code=CKMBP) 0.0 % 0.0-3.4 Troponin [id number] 01:08:00 Test Item Value Reference Range Comments Troponin T (test code=MADHAV) 0.106 ng/mL 0.000-0.090 XR CHEST 1 [id number] 21:02:01CLINICAL INFORMATION: Vascular congestion.Dictation Location: 16Comparison: 11/18/2017 showed perihilar and lower lobe opacities. Technique: Portable AP 195 hoursFINDINGS: Monitoring electrodes overlie the chest wall. Cardiomegaly withincreasing central vascular interstitial prominence with bibasilaropacities and effusions. No interval bone changes.IMPRESSION: Changes could indicate worsening cardiac decompensation orfluid overload.POC Glucose, [id number] 20:15:00 Test Item Value Reference Range Comments POC Glucose (test 139 mg/dL 70-115 If you consider your patient code=POCGLUC) critically ill, the [facility] Accu-Chek InformII metershould not be used for Glucose determinations.Draw a venous Glucose and send to the Main Lab for Analysis. POC Glucose, [id number] 16:52:00 Test Item Value Reference Range Comments POC Glucose (test 123 mg/dL 70-115 If you consider your patient code=POCGLUC) critically ill, the [facility] Accu-Chek InformII metershould not be used for Glucose determinations.Draw a venous Glucose and send to the Main Lab for Analysis. POC Glucose, [id number] 12:04:00 Test Item Value Reference Range Comments POC Glucose (test 140 mg/dL 70-115 If you consider your patient code=POCGLUC) critically ill, the [facility] Accu-Chek InformII metershould not be used for Glucose determinations.Draw a venous Glucose and send to the Main Lab for Analysis. POC Glucose, [id number] 08:01:00 Test Item Value Reference Range Comments POC Glucose (test 126 mg/dL 70-115 If you consider your patient code=POCGLUC) critically ill, the [facility] Accu-Chek InformII metershould not be used for Glucose determinations.Draw a venous Glucose and send to the Main Lab for Analysis. CK [id number] 06:03:00 Test Item Value Reference Range Comments CK (test code=CK) na U/L 39-308 CKMB (test code=CKMB) 2.8 ng/mL 0.0-4.9 CKMB% (test code=CKMBP) 0.0 % 0.0-3.4 Basic Metabolic [id number] 05:51:00 Test Item Value Reference Range Comments [...] race is not provided, and the patient isAfrican[place]Citizen [place], multiply by 1.212. If sex is not provided, and thepatient is female, multiply by 0.742. Results for patients <18 years ofage have not been validated by the MDRD study and should be interpretedwith caution.eGFR Result Interpretation:eGFR > or=60 is in the Normal RangeeGFR < 60 may mean kidney diseaseeGFR < 15 may mean kidney failureRanges recommended by the National Kidney Foundation,http://nkdep.nih .gov Magnesium, [id number] 05:51:00 Test Item Value Reference Range Comments Magnesium (test code=MG) 1.9 mg/dL 1.7-2.5 [id number] 05:51:00 Test Item Value Reference Range Comments Phosphorus (test code=PO4) 3.8 mg/dL 2.70-4.50 Oas-[id number] 05:51:00 Test Item Value Reference Range Comments NT ProBnp (test code=PBNP) >27567 pg/mL 0-124 Troponin [id number] 05:51:00 Test Item Value Reference Range Comments Troponin T (test code=MADHAV) 0.126 ng/mL 0.000-0.090 CBC with [id number] 05:34:00 Test Item Value Reference Range Comments [...] Lymph Abs (test code=ALYMPH) 0.4 K/cumm 0.5-4.6 Bosque Abs (test code=AMONO) 0.6 K/cumm 0.0-1.2 Eos Abs (test code=AEOS) 0.13 K/cumm 0.00-0.74 Baso Abs (test code=ABASO) 0.0 K/cumm 0.00-0.21 CK [id number] 18:39:00 Test Item Value Reference Range Comments CK (test code=CK) HIDE U/L 39-308 CKMB (test code=CKMB) 3.2 ng/mL 0.0-4.9 CKMB% (test code=CKMBP) HIDE % 0.0-3.4 Troponin [id number] 18:39:00 Test Item Value Reference Range Comments Troponin T (test code=MADHAV) 0.126 ng/mL 0.000-0.090 Hep B Surface [id number] 18:39:00 Test Item Value Reference Range Comments Hep Bs Ag (test code=HBSAG) Nonreactive Non-Reactive POC Glucose, [id number] 16:47:00 Test Item Value Reference Range Comments POC Glucose (test 143 mg/dL 70-115 If you consider your patient code=POCGLUC) critically ill, the [facility] Accu-Chek InformII metershould not be used for Glucose determinations.Draw a venous Glucose and send to the Main Lab for Analysis. XR CHEST 1 [id number] 08:18:18EXAM: Portable AP chest x-rayLOCATION: R16 INDICATION: CoughCOMPARISON: 11/07/2017FINDINGS:The cardiacsilhouette is stable enlargement. There are increasinginterstitial opacities, most evident in the perihilar regions and lowerlobes. There is blunting of the costophrenic angles bilaterally. Thereis no discernible pneumothorax.IMPRESSION:Increasing perihilar and bilateral lower lobe opacities compared to theprior exam dated 11/07. Findings may represent pulmonary edema orpneumonia in the appropriate clinical setting.Comprehensive Metabolic [id number] 08:05:00 Test Item Value Reference Range Comments [...] race is not provided, and the patient isAfrican[place]Citizen [place], multiply by 1.212. If sex is not provided, and thepatient is female, multiply by 0.742. Results for patients <18 years ofage have not been validated by the MDRD study and should be interpretedwith caution.eGFR Result Interpretation:eGFR > or=60 is in the Normal RangeeGFR < 60 may mean kidney diseaseeGFR < 15 may mean kidney failureRanges recommended by the National Kidney Foundation,http://nkdep.nih .gov CK [id number] 08:05:00 Test Item Value Reference Range Comments CK (test code=CK) 149 U/L 39-308 Troponin [id number] 08:02:00 Test Item Value Reference Range Comments Troponin T (test code=MADHAV) 0.114 ng/mL 0.000-0.090 [id number] 08:02:00 Test Item Value Reference Range Comments NT ProBnp (test code=PBNP) >37489 pg/mL 0-124 CBC with [id number] 07:53:00 Test Item Value Reference Range Comments [...] Lymph Abs (test code=ALYMPH) 0.9 K/cumm 0.5-4.6 Bosque Abs (test code=AMONO) 0.4 K/cumm 0.0-1.2 Eos Abs (test code=AEOS) 0.11 K/cumm 0.00-0.74 Baso Abs (test code=ABASO) 0.0 K/cumm 0.00-0.21 XR CHEST 1 [id number] 21:38:09EXAM: CHEST ONE VIEWINDICATION: CoughCOMPARISON: October 06, 2017TECHNIQUE: AP view of the chest.FINDINGS: The cardiomediastinal silhouette is unchanged. Mild congestive changesbilaterally. No pneumothorax or pleural effusion is identified. Theosseous structures are unremarkable.IMPRESSION: Diffuse congestive changes bilaterally.LOCATION: R16US DUPLX EXT VEINS COMPRS, [id number] 20:09:34AFTER HOURS SERVICE ON: 10/06/2017 8: 09 PMRIGHT Lower Extremity Venous Duplex Doppler ExaminationLocation Code G38Rfdzrfm: SwellingTechnique: Real-time castillo scale, Doppler spectral analysis [...] imaged vessels.AFTER HOURS SERVICE ON: 10/06/2017 8:09 PMLEFT Lower Extremity Venous Duplex Doppler ExaminationLocation Code X41Shgswez : SwellingTechnique: Real-time castillo scale, Doppler spectral [...] of DVT in the imaged vessels.Comprehensive Metabolic [id number] 17 :40:00 Test Item Value Reference Range [...] race is not provided, and the patient isAfrican-Citizen [place], multiply by 1.212. If sex is not [...] the National Kidney Foundation,http://nkdep.nih .gov CBC with [id number] 17:15:00 Test Item Value Reference Range Comments [...] Lymph Abs (test code=ALYMPH) 1.3 K/cumm 0.5-4.6 Bosque Abs (test code=AMONO) 0.6 K/cumm 0.0-1.2 Eos Abs (test code=AEOS) 0.12 K/cumm 0.00-0.74 Baso Abs (test code=ABASO) 0.0 K/cumm 0.00-0.21 XR CHEST 1 [id number] 16:56:42CHEST 1 VIEW: [id number]: coughCOMPARISON: Sep 24, 2017FINDINGS:The heart is enlarged. There is engorgement of the central pulmonaryvasculature. There are patchy bibasilar areas of infiltrate oratelectasis with bilateral effusions. No pneumothorax is present. IMPRESSION: 1. Patchy areas of atelectasis or infiltrate in the lung bases withsmall bilateral effusions and vascular congestion most likely secondaryto CHF.Culture, Blood [id number] 14:58:00Specimen: BloodCollected: 2017 13:05 Status: Final Last Updated: 09/29/2017 14:58 (1) ER Bed 1 Culture Result (Final) (Final) No Growth After 5 DaysCulture, Blood [id number] 14:58:00Specimen: BloodCollected: 09/24/2017 12:50 Status: Final Last Updated: 09/29/2017 14:58 (1) ER Bed 1 Culture Result (Final) (Final) No Growth After 5 DaysPOC Glucose, [id number] 10:54:00 Test Item Value Reference Range Comments POC Glucose (test 168 mg/dL 70-115 If you consider your patient code=POCGLUC) critically ill, the [facility] Accu-Chek InformII metershould not be used for Glucose determinations.Draw a venous Glucose and send to the Main Lab for Analysis. POC Glucose, [id number] 07:16:00 Test Item Value Reference Range Comments POC Glucose (test 143 mg/dL 70-115 If you consider your patient code=POCGLUC) critically ill, the [facility] Accu-Chek InformII metershould not be used for Glucose determinations.Draw a venous Glucose and send to the Main Lab for Analysis. CBC with [id number] 07:15:00 Test Item Value Reference Range Comments [...] Lymph Abs (test code=ALYMPH) 1.3 K/cumm 0.5-4.6 Bosque Abs (test code=AMONO) 0.7 K/cumm 0.0-1.2 Eos Abs (test code=AEOS) 0.07 K/cumm 0.00-0.74 Baso Abs (test code=ABASO) 0.0 K/cumm 0.00-0.21 Magnesium, [id number] 07:03:00 Test Item Value Reference Range Comments Magnesium (test code=MG) 2.0 mg/dL 1.7-2.5 Basic Metabolic [id number] 07:03:00 Test Item Value Reference Range Comments [...] race is not provided, and the patient isAfrican-Citizen [place], multiply by 1.212. If sex is not [...] the National Kidney Foundation,http://nkdep.nih .gov POC Glucose, [id number] 21:40:00 Test Item Value Reference Range Comments POC Glucose (test 129 mg/dL 70-115 If you consider your patient code=POCGLUC) critically ill, the [facility] Accu-Chek InformII metershould not be used for Glucose determinations.Draw a venous Glucose and send to the Main Lab for Analysis. Hep B Surface [id number] 18:36:00 Test Item Value Reference Range Comments Hep Bs Ag (test code=HBSAG) Nonreactive Non-Reactive POC Glucose, [id number] 10:51:00 Test Item Value Reference Range Comments POC Glucose (test 216 mg/dL 70-115 If you consider your patient code=POCGLUC) critically ill, the [facility] Accu-Chek InformII metershould not be used for Glucose determinations.Draw a venous Glucose and send to the Main Lab for Analysis. POC Glucose, [id number] 07:57:00 Test Item Value Reference Range Comments POC Glucose (test 164 mg/dL 70-115 If you consider your patient code=POCGLUC) critically ill, the [facility] Accu-Chek InformII metershould not be used for Glucose determinations.Draw a venous Glucose and send to the Main Lab for Analysis. POC Glucose, [id number] 19:47:00 Test Item Value Reference Range Comments POC Glucose (test 140 mg/dL 70-115 Notify RN or MDIf you consider code=POCGLUC) your patient critically ill, the [facility] Accu-Chek InformII metershould not be used for Glucose determinations.Draw a venous Glucose and send to the Main Lab for Analysis. Troponin [id number] 19:36:00 Test Item Value Reference Range Comments Troponin T (test code=MADHAV) 0.121 ng/mL 0.000-0.090 CK [id number] 19:25:00 Test Item Value Reference Range Comments CK (test code=CK) 160 U/L 39-308 The value HIDE originally released by [employer] on 09/25/2017 19:12 waschanged to 160 by 777 Davis on 09/25/2017 19:24 CKMB (test code=CKMB) 3.0 ng/mL 0.0-4.9 CKMB% (test code=CKMBP) 1.9 % 0.0-3.4 The value HIDE originally released by [employer] on 09/25/2017 19:12 waschanged to 1.9 by 777 Davis on 09/25/2017 19:24 POC Glucose, [id number] 16:42:00 Test Item Value Reference Range Comments POC Glucose (test 123 mg/dL 70-115 If you consider your patient code=POCGLUC) critically ill, the [facility] Accu-Chek InformII metershould not be used for Glucose determinations.Draw a venous Glucose and send to the Main Lab for Analysis. POC Glucose, [id number] 12:09:00 Test Item Value Reference Range Comments POC Glucose (test 141 mg/dL 70-115 If you consider your patient code=POCGLUC) critically ill, the [facility] Accu-Chek InformII metershould not be used for Glucose determinations.Draw a venous Glucose and send to the Main Lab for Analysis. Hep B Surface [id number] 07:59:00 Test Item Value Reference Range Comments Hep Bs Ag (test code=HBSAG) Nonreactive Non-Reactive CK [id number] 07:43:00 Test Item Value Reference Range Comments CK (test code=CK) n/a U/L 39-308 CKMB (test code=CKMB) 2.4 ng/mL 0.0-4.9 CKMB% (test code=CKMBP) 0.0 % 0.0-3.4 Troponin [id number] 07:38:00 Test Item Value Reference Range Comments Troponin T (test code=MADHAV) 0.134 ng/mL 0.000-0.090 Thyroid Stimulating Hormone (TSH)2017-09-25 07:38:00 Test Item Value Reference Range Comments TSH (test code=TSH) 1.10 mIU/mL 0.270-4.200 [id number] 07:38:00 Test Item Value Reference Range Comments Phosphorus (test code=PO4) 3.4 mg/dL 2.70-4.50 Comprehensive Metabolic [id number] 07:38:00 Test Item Value Reference Range Comments [...] race is not provided, and the patient isAfrican-Citizen Of [place], multiply by 1.212. If sex is not provided, and thepatient is female, multiply by 0.742. Results for patients <18 years ofage have not been validated by the MDRD study and should be interpretedwith caution.eGFR Result Interpretation:eGFR > or=60 is in the Normal RangeeGFR < 60 may mean kidney diseaseeGFR < 15 may mean kidney failureRanges recommended by the National Kidney Foundation,http://nkdep.nih .gov Magnesium, [id number] 07:38:00 Test Item Value Reference Range Comments Magnesium (test code=MG) 2.0 mg/dL 1.7-2.5 CK [id number] 07:31:00 Test Item Value Reference Range Comments CK (test code=CK) 159 U/L 39-308 Lipid [id number] 07:31:00 Test Item Value Reference Range Comments Cholesterol (test 118 mg/dL 0-200 code=CHOL) Triglycerides (test 170 mg/dL 9-200 code=TRIG) HDL (test code=HDL) 49 mg/dL 40-60 Chol/HDL (test 2.4 Ratio 0.0-5.0 code=CHOLPHDL) LDL, Calculated (test 35 0-130 (NOTE)RISK OF HEART code=LDLC) DISEASEPublished by Citizen Of [place] Heart AssociationAnalyte Optimal Boderline Increased RiskCHOL <200 200-239 >240TRIG <150 150-199 >200HDL Male: >60 <40HDL Female: >60 <50LDL <100 130-159 >160LDL NEAR OPTIMAL IS 100-129 VLDL (test code=VLDL) 34 mg/dL 5-40 LDL/HDL (test code=LDLPHDL) 1 Glycosylated [id number] 07:24:00 Test Item Value Reference Range Comments HBA1c (test code=HBA1C) 5.0 % 4.8-5.9 CBC with [id number] 07:20:00 Test Item Value Reference Range Comments [...] Lymph Abs (test code=ALYMPH) 0.8 K/cumm 0.5-4.6 Bosque Abs (test code=AMONO) 0.5 K/cumm 0.0-1.2 Eos Abs (test code=AEOS) 0.10 K/cumm 0.00-0.74 Baso Abs (test code=ABASO) 0.0 K/cumm 0.00-0.21 POC Glucose, [id number] 07:03:00 Test Item Value Reference Range Comments POC Glucose (test 147 mg/dL 70-115 If you consider your patient code=POCGLUC) critically ill, the Madeline Accu-Chek InformII metershould not be used for Glucose determinations.Draw a venous Glucose and send to the Main Lab for Analysis. POC Glucose, [id number] 22:05:00 Test Item Value Reference Range Comments POC Glucose (test 134 mg/dL 70-115 If you consider your patient code=POCGLUC) critically ill, the Madeline Accu-Chek InformII metershould not be used for Glucose determinations.Draw a venous Glucose and send to the Main Lab for Analysis. Blood Gas+Lytes+Glu+Ca+Hgb+Hct+[id number] 18:31:00 Test Item Value Reference Range Comments [...] Celcius code=PTTEMP) Comment (test code=COMMENT) [email or web address] Puncture Site (test code=PUNSITE) Radial. R Drawing Tech ID (test medel fi code=DRAWTECH) iPAP (test code=IPAP) 0 cmH2O Respiratory Rate (test code=RESP 0 RATE) Lactic Acid, Blood Gas (test 0.4 mmol/L code=BGLA) CT CHEST W/O [id number] 16:48:03CT CHEST W/O CONTRASTLOCATION CODE: R16 HISTORY: [...] bilateral axillary, prevascular, andparatracheal lymph nodes.Influenza B [id number] 14:36:00Specimen: NasalCollected: 09/24/2017 14:04 Status: Final Last [...] Culture of negative samples is recommended.Influenza A [id number] 14:34:00Specimen: NasalCollected: 09/24/2017 14:04 Status: Final Last [...] Culture of negative samples is recommended.Comprehensive Metabolic [id number] 13:54:00 Test Item Value Reference Range Comments [...] race is not provided, and the patient isAfrican-Citizen Of [place], multiply by 1.212. If sex is not provided, and thepatient is female, multiply by 0.742. Results for patients <18 years ofage have not been validated by the MDRD study and should be interpretedwith caution.eGFR Result Interpretation:eGFR > or=60 is in the Normal RangeeGFR < 60 may mean kidney diseaseeGFR < 15 may mean kidney failureRanges recommended by the National Kidney Foundation,http://nkdep.nih .gov Troponin [id number] 13:54:00 Test Item Value Reference Range Comments Troponin T (test code=MADHAV) 0.124 ng/mL 0.000-0.090 [id number] 13:54:00 Test Item Value Reference Range Comments NT ProBnp (test code=PBNP) >93747 pg/mL 0-124 CK [id number] 13:54:00 Test Item Value Reference Range Comments CK (test code=CK) 222 U/L 39-308 CKMB (test code=CKMB) 3.1 ng/mL 0.0-4.9 CKMB% (test code=CKMBP) 1.4 % 0.0-3.4 CK [id number] 13:54:00 Test Item Value Reference Range Comments CK (test code=CK) 222 U/L 39-308 Partial Thromboplastin [id number] 13:43:00 Test Item Value Reference Range Comments aPTT (test code=PTT) 35.70 seconds 24.39-37.25 Prothrombin [id number] 13:43:00 Test Item Value Reference Range Comments PT (test code=PT) 11.30 seconds 9.78-13.35 INR (test code=INR) 0.99 Ratio 0.6-1.2 Lactic Acid [id number] 13:41:00 Test Item Value Reference Range Comments Lactic Acid, Bld (test code=LAC) 1.3 mmol/L 0.5-1.9 CBC with [id number] 13:32:00 Test Item Value Reference Range Comments [...] Lymph Abs (test code=ALYMPH) 1.2 K/cumm 0.5-4.6 Bosque Abs (test code=AMONO) 0.6 K/cumm 0.0-1.2 Eos Abs (test code=AEOS) 0.23 K/cumm 0.00-0.74 Baso Abs (test code=ABASO) 0.0 K/cumm 0.00-0.21 XR CHEST 1 [id number] 12:50:14XR CHEST 1 VIEWLOCATION: [id number]: None.INDICATION: CoughDISCUSSION:A single portable chest radiograph was [...]
--- OUTSIDE RECORDS SUMMARY | 2019-09-11 15:34 | XMS REPORT ---
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 Medication List Medication Instructions Start Stop Generic NDC Status Provider Patient Date Date Name Instruction AMLODIPINE AMLODIPINE 27508893211 Active Mo Active BESYLATE 10 MG BESYLATE Dicks OD ORAL TABLET CALCIUM ACETATE CALCIUM ACETATE 82934927654 Active Mo Active (PHOS BINDER) (PHOS BINDER) Dicks OD 667 MG ORAL CAPSULE CRESTOR 5 MG ROSUVASTATIN 28888004783 Active Mo Active ORAL TABLET CALCIUM Dicks OD EPIVIR SOLUTION LAMIVUDINE SOLN 39052262896 Active Mo Active Dicks OD ISENTRESS RALTEGRAVIR 56856912152 Active Mo Active TABLET POTASSIUM TABS Dicks OD KALETRA TABLET LOPINAVIR-RITONAVI 52126714453 Active Mo Active R TABS Dicks OD LAMIVUDINE LAMIVUDINE TABS 06578346667 Active Mo Active TABLET Dicks OD PROAIR HFA ALBUTEROL SULFATE 50620370835 Active Mo Active AEROSOL AERS Dicks OD SOLUTION PEDRO-EAMON RX B-COMPLEX W/ C & 46331611787 Active Mo Active TABLET FOLIC ACID TABS Dicks OD VITAMIN D2 ERGOCALCIFEROL 92062251173 Active Mo Active TABLET TABS Dicks OD Diagnostic Results Date Name Value Unit Range Description Append: Eye Exam - Hematology T-helper cells (CD4) count 602 uL Append: Eye Exam - Serology HIV-1RNA, serum, by PCR, quantitative 20 {Copies}/mL Procedures Code Procedure Name Date Entry Date Standard Description CPT-11185 Dispensing Visit (UNLIVSTED OPHTHALMOLOGICAL 10:14:39 CDT SERVICE/PROCEDURE) CPT-45674 Est Patient Comprehensive Opt - 35970 15:29:32 CDT CPT-33524 New Patient Intermediate Opt - 45926 14:28:41 CDT
[2019-09-11 16:36] LABS: Hematocrit 34.4 % (39.6-49.0); MPV 6.4 fL (7.6-11.3); RBC Red Blood Cell Count 3.56 M/uL (4.33-5.43)
[2019-09-11 16:40] LABS: Protime INR 2.12
[2019-09-11 17:07] LABS: ALT/SGPT 41 U/L (12-78); AST/SGOT 43 U/L (15-37); Albumin 3.7 g/dL (3.4-5.0); Alkaline Phosphatase 111 U/L (45-117); BUN Blood Urea Nitrogen 45 mg/dL (7-18); Bicarbonate 29 mmol/L (21-32); Bilirubin Direct 0.3 mg/dL (0-0.2); Bilirubin Total 0.8 mg/dL (0.2-1.0); Glucose Level 93 mg/dL (74-106); NT PRO-BNP 29311 pg/mL (<125); Potassium 4.2 mmol/L (3.5-5.1); Protein, Total 9.1 g/dL (6.4-8.2); Sodium Level 134 mmol/L (136-145); Troponin (Emerg Dept Use Only) < 0.02 ng/mL (0.0-0.045)
[2019-09-11 17:09] LABS: Basophilic Stippling 1+; Blood Morphology Comment NOTED (NOT SEEN); Macrocytosis 1+; Platelet Estimate ADEQ
--- NOTE | 2019-09-11 17:56 | RAD REPORT ---
EXAM DESCRIPTION: Segun Lamar And Mike (2 Views)09/11/2019 4:11 pm CLINICAL HISTORY: cough COMPARISON: 07/2019 FINDINGS: A small right pleural effusion without change. Mild right basilar atelectasis Left lung appears clear The heart is mildly to moderately enlarged Postsurgical changes involve chest
--- NOTE | 2019-09-11 19:00 | EDPHYS ---
Physician Documentation [facility] Name: Salvtaore Goldman Age: 64 yrs Sex: Male : 1955 Arrival Date: 09/11/2019 Time: 15:08 Bed 17 Private MD: MICHELINE Physician Boston Johnson HPI: 09/11 16:05 This 64 yrs old Black Male presents to ER via Ambulatory with complaints of Cough, pm1 Doesn't Feel Right. 16:05 The patient or guardian reports cough, with no sputum. Onset: The symptoms/episode pm1 began/occurred 1 month(s) ago, reports present since 07/29/2019. Severity of symptoms: in the emergency department the symptoms are unchanged. Modifying factors: The symptoms are alleviated by nothing, the symptoms are aggravated by nothing. Had dialysis treatment yesterday without any issues. Patient also presenting with penile discharge and inability to retract his foreskin. Onset 3-4 months ago. Has not had any sexual intercourse. Also reports sensation of itching in his face and seeing bugs crawling on his skin. Historical: - Allergies: 15:40 codeine sulfate (DIZZINESS); aa5 - PMHx: 15:40 Cirrhosis; Diabetes - NIDDM; Dialysis; heart valve; Hepatitis; HIV; Hyperlipidemia; aa5 Karposi Sarcoma (left leg); kidney failure; L arm HD access; - PSHx: 15:40 left forearm dialysis fistula; partial lobectomy right; CABG; heart valve replacement; aa5 - Immunization history:: Flu vaccine is up to date. - Social history:: Smoking status: Patient/guardian denies using tobacco. - Ebola Screening: : No symptoms or risks identified at this time. ROS: 16:05 Constitutional: Negative for fever, chills, and weight loss, Eyes: Negative for injury, pm1 pain, redness, and discharge, ENT: Negative for injury, pain, and discharge, Neck: Negative for injury, pain, and swelling, Cardiovascular: Negative for chest pain, palpitations, and edema. 16:05 Abdomen/GI: Negative for abdominal pain, nausea, vomiting, diarrhea, and constipation, Back: Negative for injury and pain. 16:05 MS/Extremity: Negative for injury and deformity. 16:05 Neuro: Negative for headache, weakness, numbness, tingling, and seizure. 16:05 Respiratory: Positive for cough, Negative for shortness of breath, sputum production, wheezing. 16:05 : Positive for penile discharge, Negative for urinary symptoms, testicular pain 16:05 Skin: Positive for itching to skin on face and ears. Exam: 16:05 Constitutional: This is a well developed, well nourished patient who is awake, alert, pm1 and in no acute distress. Head/Face: Normocephalic, atraumatic. Eyes: Pupils equal round and reactive to light, extra-ocular motions intact. Lids and lashes normal. Conjunctiva and sclera are non-icteric and not injected. Cornea within normal limits. Periorbital areas with no swelling, redness, or edema. ENT: Nares patent. No nasal discharge, no septal abnormalities noted. Tympanic membranes are normal and external auditory canals are clear. Oropharynx with no redness, swelling, or masses, exudates, or evidence of obstruction, uvula midline. Mucous membranes moist. Neck: Trachea midline, no thyromegaly or masses palpated, and no cervical lymphadenopathy. Supple, full range of motion without nuchal rigidity, or vertebral point tenderness. No Meningismus. Chest/axilla: Normal chest wall appearance and motion. Nontender with no deformity. No lesions are appreciated. Cardiovascular: Regular rate and rhythm with a normal S1 and S2. No gallops, murmurs, or rubs. Normal PMI, no JVD. No pulse deficits. Respiratory: Lungs have equal breath sounds bilaterally, clear to auscultation and percussion. No rales, rhonchi or wheezes noted. No increased work of breathing, no retractions or nasal flaring. Abdomen/GI: Soft, non-tender, with normal bowel sounds. No distension or tympany. No guarding or rebound. No evidence of tenderness throughout. Back: No spinal tenderness. No costovertebral tenderness. Full range of motion. 16:05 Skin: Warm, dry with normal turgor. Normal color with no rashes, no lesions, and no evidence of cellulitis. MS/ Extremity: Pulses equal, no cyanosis. Neurovascular intact. Full, normal range of motion. 16:05 : Male external genitalia: redness and swelling to this tip of patient's foreskin consistent with balanitis. 16:05 Neuro: Orientation: is normal, Motor: is normal, moves all fours. Vital Signs: 15:41 BP 150 / 89; Pulse 83; Resp 18 S; Temp 99.5(O); Pulse Ox 99% on R/A; Weight 72.57 kg aa5 (R); Height 5 ft. 7 in. (170.18 cm) (R); 17:05 BP 158 / 79; Pulse 92; Resp 17; Pulse Ox 100% on R/A; hb 18:20 BP 159 / 89; Pulse 89; Resp 17; Pulse Ox 98% ; hb 15:41 Body Mass Index 25.06 (72.57 kg, 170.18 cm) aa5 MDM: 15:44 Patient medically screened. pm1 18:53 Data reviewed: vital signs. Data interpreted: Pulse oximetry: on room air is 98 %. pm1 Interpretation: normal. Counseling: I had a detailed discussion with the patient and/or guardian regarding: the historical points, exam findings, and any diagnostic results supporting the discharge/admit diagnosis, lab results, radiology results, the need for outpatient follow up, to return to the emergency department if symptoms worsen or persist or if there are any questions or concerns that arise at home. 19:19 ED course: Patient requested medication for cough. Denies allergy to codeine. pm1 09/11 15:54 Order name: Flu; Complete Time: 17:12 pm09/11 15:54 Order name: Basic Metabolic Panel; Complete Time: 17:15 pm09/11 15:54 Order name: CBC with Diff; Complete Time: 17:11 pm09/11 15:54 Order name: LFT's; Complete Time: 17:15 pm09/11 15:54 Order name: NT PRO-BNP; Complete Time: 17:15 pm09/11 15:54 Order name: PT-INR; Complete Time: 16:49 pm09/11 15:54 Order name: Chest Pa And Lat (2 Views) XRAY; Complete Time: 17:59 pm09/11 15:54 Order name: Troponin (emerg Dept Use Only); Complete Time: 17:15 pm09/11 15:54 Order name: EKG; Complete Time: 15:55 pm09/11 15:54 Order name: Cardiac monitoring; Complete Time: 16:35 pm1 01/10 15:54 Order name: EKG - Nurse/Tech; Complete Time: 16:35 pm1 09/11 15:54 Order name: IV Saline Lock; Complete Time: 16:30 pm1 09/11 15:54 Order name: Blood Culture Adult (2) pm1 09/11 17:09 Order name: Manual Differential; Complete Time: 17:11 EDNM 09/11 15:54 Order name: Labs collected and sent; Complete Time: 16:30 pm1 09/11 15:54 Order name: O2 Per Protocol; Complete Time: 16:30 pm1 09/11 15:54 Order name: O2 Sat Monitoring; Complete Time: 16:30 pm1 Administered Medications: No medications were administered Disposition: 09/11/19 18:58 Discharged to Home. Impression: Balanitis, Acute upper respiratory infection, unspecified. - Condition is Stable. - Discharge Instructions: Balanitis, Upper Respiratory Infection, Adult. - Prescriptions for Clotrimazole 1 % Topical Cream - Apply to affected area 1 application by TOPICAL route every 12 hours; 15 gram. Bactrim DS 800- 160 mg Oral Tablet - take 1 tablet by ORAL route every 12 hours for 14 days; 28 tablet. Guaifenesin AC 10- 100 mg/5 mL Oral Liquid - take 10 milliliter by ORAL route every 4 hours As needed; 240 milliliter. - Medication Reconciliation Form, Thank You Letter, Antibiotic Education, Prescription Opioid Use form. - Follow up: Emergency Department; When: As needed; Reason: Worsening of condition. Follow up: Private Physician; When: 2 - 3 days; Reason: Recheck today's complaints, Continuance of care, Re-evaluation by your physician. - Problem is new. - Symptoms have improved. Addendum: 09/14/2019 08:08 Co-signature as Attending Physician, Boston Johnson MD I agree with the assessment and c perez plan of care. Signatures: Dispatcher [employer] Boston Miner MD MD cha Calderon, Audri, RN RN aa5 Efe Ridley, MOUNA CLOCK MAKER pm1 Jonathan Easley Corrections: (The following items were deleted from the chart) 09/11 19:23 18:58 09/11/2019 18:58 Discharged to Home. Impression: Balanitis; Acute upper wh respiratory infection, unspecified. Condition is Stable. Forms are Medication Reconciliation Form, Thank You Letter, Antibiotic Education, Prescription Opioid Use. Follow up: Emergency Department; When: As needed; Reason: Worsening of condition. Follow up: Private Physician; When: 2 - 3 days; Reason: Recheck today's complaints, Continuance of care, Re-evaluation by your physician. Problem is new. Symptoms have improved. pm1
--- NOTE | 2019-09-11 19:00 | ER ---
Nurse's Notes [facility] Name: Salvatore Goldman Age: 64 yrs Sex: Male : 1955 Arrival Date: 09/11/2019 Time: 15:08 Bed 17 Private MD: Diagnosis: Balanitis;Acute upper respiratory infection, unspecified Presentation: 09/11 15:35 Presenting complaint: Patient states: cough with clear sputum that began 1 month ago aa5 and is getting worse. Pt states "I had Pneumonia a month ago". Pt also reports yellowish discharge from penis. Las dialysis was yesterday. Pt states "I am also itchy sometimes everywhere and I don't know if I am getting bug bites or what". 15:35 Transition of care: patient was not received from another setting of care. Onset of aa5 symptoms was September 2019. Risk Assessment: Do you want to hurt yourself or someone else? Patient reports no desire to harm self or others. Initial Sepsis Screen: Does the patient meet any 2 criteria? No. Patient's initial sepsis screen is negative. Does the patient have a suspected source of infection? No. Patient's initial sepsis screen is negative. Care prior to arrival: None. 15:35 Acuity: NARDA 3 aa5 15:35 Method Of Arrival: Ambulatory aa5 Historical: - Allergies: 15:40 codeine sulfate (DIZZINESS); aa5 - PMHx: 15:40 Cirrhosis; Diabetes - NIDDM; Dialysis; heart valve; Hepatitis; HIV; Hyperlipidemia; aa5 Karposi Sarcoma (left leg); kidney failure; L arm HD access; - PSHx: 15:40 left forearm dialysis fistula; partial lobectomy right; CABG; heart valve replacement; aa5 - Immunization history:: Flu vaccine is up to date. - Social history:: Smoking status: Patient/guardian denies using tobacco. - Ebola Screening: : No symptoms or risks identified at this time. Screenin:43 Abuse screen: Denies threats or abuse. Denies injuries from another. Nutritional hb screening: No deficits noted. Tuberculosis screening: No symptoms or risk factors identified. Fall Risk None identified. Assessment: 16:00 General: Appears in no apparent distress. Behavior is calm, cooperative. Pain: Denies hb pain. Neuro: Level of Consciousness is awake, alert, obeys commands, Oriented to person, place, time, situation. Cardiovascular: Heart tones S1 S2 present Capillary refill < 3 seconds Patient's skin is warm and dry. Respiratory: Airway is patent Respiratory effort is even, unlabored, Respiratory pattern is regular, symmetrical, Breath sounds are clear bilaterally. GI: No signs and/or symptoms were reported involving the gastrointestinal system. : No signs and/or symptoms were reported regarding the genitourinary system. EENT: No signs and/or symptoms were reported regarding the EENT system. Derm: Skin is pink, warm \\T\\ dry. Musculoskeletal: No signs and/or symptoms reported regarding the musculoskeletal system. 17:00 Reassessment: Patient appears in no apparent distress at this time. No changes from hb previously documented assessment. Patient and/or family updated on plan of care and expected duration. Pain level reassessed. 18:20 Reassessment: Patient appears in no apparent distress at this time. No changes from hb previously documented assessment. Patient and/or family updated on plan of care and expected duration. Pain level reassessed. Vital Signs: 15:41 BP 150 / 89; Pulse 83; Resp 18 S; Temp 99.5(O); Pulse Ox 99% on R/A; Weight 72.57 kg aa5 (R); Height 5 ft. 7 in. (170.18 cm) (R); 17:05 BP 158 / 79; Pulse 92; Resp 17; Pulse Ox 100% on R/A; hb 18:20 BP 159 / 89; Pulse 89; Resp 17; Pulse Ox 98% ; hb 15:41 Body Mass Index 25.06 (72.57 kg, 170.18 cm) aa5 ED Course: 15:08 Patient arrived in ED. ag5 15:35 Arm band placed on. aa5 15:39 Triage completed. aa5 15:43 Rere Boston, LAURYN is Primary Nurse. hb 15:43 Efe Ridley NP is PHCP. pm1 15:43 Boston Johnson MD is Attending Physician. pm1 16:02 Patient has correct armband on for positive identification. Placed in gown. Bed in low hb position. Call light in reach. 16:11 Chest Pa And Lat (2 Views) XRAY In Process Unspecified. EDMS 16:20 Inserted saline lock: 20 gauge in right forearm, using aseptic technique. ,using hb aseptic technique. by Helena COMBS Blood collected. 16:20 Initial lab(s) drawn, First set of blood cultures drawn by Helena COMBS. hb 19:08 No provider procedures requiring assistance completed. IV discontinued, intact, hb bleeding controlled, No redness/swelling at site. Administered Medications: No medications were administered Outcome: 18:58 Discharge ordered by . pm1 19:08 Discharged to home via wheelchair. hb 19:08 Condition: stable 19:08 Discharge instructions given to patient, Instructed on discharge instructions, follow up and referral plans. medication usage, Demonstrated understanding of instructions, follow-up care, medications, Prescriptions given X 3. 19:23 Patient left the ED. Signatures: Dispatcher [employer] EDMS Miladys Magallon RN RN aa5 Efe Ridley, MOUNA BRANCH RETAIL EXECUTIVE pm1 Rere Boston RN RN Jonathan Easley Khanh Charles ag5 Corrections: (The following items were deleted from the chart) 15:40 15:37 Arm band placed on aa5 aa5 19:22 19:08 Discharge instructions given to patient, Instructed on discharge instructions, follow up and referral plans. medication usage, Demonstrated understanding of instructions, follow-up care, medications, Prescriptions given X 2, hb
[2019-09-11 19:41] VITALS: TEMP 99.5
[2019-09-11 19:44] VITALS: BP 159/89; O2SAT 98
--- NOTE | 2019-09-13 06:40 | EKG ---
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
== END 2019-09-11 19:23 | disposition home or self-care (01) ==
LOC: ER 15:05
DX: J06.9 Acute upper respiratory infection, unspecified (principal); N48.1 Balanitis; Z88.6 Allergy status to analgesic agent; B20 Human immunodeficiency virus [HIV] disease; N19 Unspecified kidney failure; Z99.2 Dependence on renal dialysis; Z95.1 Presence of aortocoronary bypass graft; Z95.4 Presence of other heart-valve replacement
CPT/HCPCS: 36415; 71046; 80048; 80076; 83880; 84484; 85025; 85610; 87040; 87804; 93005; 99284

== ENCOUNTER 2020-01-01 21:08 | Emergency (ER) | payer OTHER ==
--- OUTSIDE RECORDS SUMMARY | 2020-01-01 21:40 | XMS REPORT ---
:1955 Author Organization [facility] t Address [address] [place] [address] Care Team Providers Name Role Phone UNKNOWN, REFFERING Primary Care Provider Unavailable ROMEO CAMPBELL Unavailable Unavailable TROY SOLANO Unavailable Unavailable SANJUANA BREWER Unavailable Unavailable CHARI Unavailable Unavailable BHAVNA GERBER Unavailable Unavailable KAZ TURPIN Unavailable Unavailable EDENILSON ANTONIO Unavailable Unavailable Xavier HOLLOWAY Unavailable Unavailable ELIANA Unavailable Unavailable SHILA JAFFE MD, M.Diogo Unavailable Unavailable Problems This patient has no known problems. Allergies, Adverse Reactions, Alerts This patient has no known allergies or adverse reactions. Medications This patient has no known medications. Procedures and Interventions Procedure Date / Time Performed Performing Clinici an [id number] 2019-01-08 00:00:00 [id number] 2019-01-08 00:00:00 [id number] 2019-01-08 00:00:00 Encounters Start End Encounter Admission Attending Care Care Encounter Date/Time Date/Time Type Type Clinicians Facility Department ID 2019-11-09 2019-11-09 Outpatient [facility] MED [id number] 08:51:00 08:51:00 2017-11-18 2017-11-20 [facility] [id number] 18 13:43:00 13:54:00 [place] 2017-11-07 2017-11-07 Emergency E [facility] MED [id number] 03 20:22:00 20:22:00 2017-10-06 2017-10-06 [facility] [id number] 06 14:25:00 14:25:00 [facility] Results Test Description Test Time Test Comments Text Results Atomic Results Result Comments AFB CULTURE + SMEAR 2019-02-02 07:33:00 Test Item Value Reference Range Comments CULTURE (BEAKER) (test code = 1095) No acid-fast bacilli isolate d in 42 days AFB SMEAR (BEAKER) (test code = 994) No acid fast bacilli seen FUNGUS CULTURE + [id number] 17:26:00 Test Item Value Reference Range Comments CULTURE (BEAKER) (test code = No fungus isolated in 28 days 1095) FUNGUS SMEAR (BEAKER) (test No fungi seen code = 1406) POCT-GLUCOSE [id number] 13:35:00 Test Item Value Reference Range Comments POC-GLUCOSE METER (BEAKER) 116 mg/dL 70-110 TESTE D AT [address] (test code = 1538) [place] [id number] POCT-GLUCOSE [id number] 08:54:00 Test Item Value Reference Range Comments POC-GLUCOSE METER (BEAKER) 99 mg/dL 70-110 TESTE D AT [address] (test code = 1538) [place] [id number] [id number] 06:34:00 Test Item Value Reference Range Comments PARTIAL THROMBOPLASTIN TIME (BEAKER) (test code 46.7 seconds 22.5-36.0 = 760) While on warfarin.PROTHROMBIN [id number] 06:33:00 Test Item Value Reference Range Comments PROTIME (BEAKER) (test code = 759) 26.5 seconds 11.7-14.7 INR (BEAKER) (test code = 370) 2.6 <=5.9 RECOMMENDED COUMADIN/WARFARIN INR THERAPY RANGESSTANDARD DOSE: 2.0 - 3.0 Includes: PROPHYLAXIS forvenous thrombosis, systemic embolization; TREATMENT for venous thrombosis and/or pulmonary embolus.HIGH RISK: Target INR is 2.5-3.5 for patients with mechanical heart valves.While on warfarin.BASIC METABOLIC PANEL 2019-01-06 06:30:00 Test Item Value Reference Range Comments SODIUM (BEAKER) (test 132 meq/L 136-145 code = 381) POTASSIUM (BEAKER) (test 4.7 meq/L 3.5-5.1 code = 379) CHLORIDE (BEAKER) (test 96 meq/L 98-107 code = 382) CO2 (BEAKER) (test code = 27 meq/L 22-29 355) BLOOD UREA NITROGEN 59 mg/dL 7-21 (BEAKER) (test code = 354) CREATININE (BEAKER) (test 6.00 mg/dL 0.57-1.25 code = 358) GLUCOSE RANDOM (BEAKER) 118 mg/dL 70-105 (test code = 652) CALCIUM (BEAKER) (test 9.5 mg/dL 8.4-10.2 code = 697) EGFR (BEAKER) (test code 12 mL/min/1.73 sq m EST IMATED GFR IS NOT = 1092) ACCURATE CREA TININE CLEARANCE IN PRE DICTING GLOMERULAR FILTR ATION RATE. ESTIMATED GFR IS NOT APPLICABLE F OR DIALYSIS PATIENT S. CBC (HEMOGRAM ONLY)2019-01-06 06:09:00 Test Item Value Reference Range Comments WHITE BLOOD CELL COUNT (BEAKER) (test code = 9.4 K/ L 3.5 -10.5 775) RED BLOOD CELL COUNT (BEAKER) (test code = 761) 2.60 M/ L 4.63-6.08 HEMOGLOBIN (BEAKER) (test code = 410) 8.5 GM/DL 13.7-17.5 HEMATOCRIT (BEAKER) (test code = 411) 27.6 % 40.1-51.0 MEAN CORPUSCULAR VOLUME (BEAKER) (test code = 106.2 fL 79 .0-92.2 753) MEAN CORPUSCULAR HEMOGLOBIN (BEAKER) (test code 32.7 pg 25.7-32.2 = 751) MEAN CORPUSCULAR HEMOGLOBIN CONC (BEAKER) (test 30.8 GM/DL 32.3-36.5 code = 752) RED CELL DISTRIBUTION WIDTH (BEAKER) (test code 17.9 % 11.6-14.4 = 412) PLATELET COUNT (BEAKER) (test code = 756) 148 K/CU MM 150-45 0 MEAN PLATELET VOLUME (BEAKER) (test code = 754) 9.2 fL 9.4-12.4 NUCLEATED RED BLOOD CELLS (BEAKER) (test code = 1 /100 WBC 0-0 413) POCT-GLUCOSE [id number] 21:38:00 Test Item Value Reference Range Comments POC-GLUCOSE METER (BEAKER) 192 mg/dL 70-110 TESTE D AT [facility] [address] [facility] (test code = 1538) [place] [address] POCT-GLUCOSE [id number] 13:01:00 Test Item Value Reference Range Comments POC-GLUCOSE METER (BEAKER) 200 mg/dL 70-110 TESTE D AT [facility] [address] [facility] (test code = 1538) [facility] [address] POCT-GLUCOSE [id number] 08:00:00 Test Item Value Reference Range Comments POC-GLUCOSE METER (BEAKER) 123 mg/dL 70-110 TESTE D AT [facility] [address] [facility] (test code = 1538) [facility] [address] [id number] 06:40:00 Test Item Value Reference Range Comments PARTIAL THROMBOPLASTIN TIME (BEAKER) (test code 83.1 seconds 22.5-36.0 = 760) [id number] 05:54:00 Test Item Value Reference Range Comments PARTIAL THROMBOPLASTIN TIME (BEAKER) (test code = > seconds 22.5-36.0 760) PROTHROMBIN [id number] 05:30:00 Test Item Value Reference Range Comments PROTIME (BEAKER) (test code = 759) 24.1 seconds 11.7-14.7 INR (BEAKER) (test code = 370) 2.3 <=5.9 RECOMMENDED COUMADIN/WARFARIN INR THERAPY RANGESSTANDARD DOSE: 2.0 - 3.0 Includes: PROPHYLAXIS forvenous thrombosis, systemic embolization; TREATMENT for venous thrombosis and/or pulmonary embolus.HIGH RISK: Target INR is 2.5-3.5 for patients with mechanical heart valves.While on warfarin.CBC (HEMOGRAM ONLY) 2019-01-05 05:15:00 Test Item Value Reference Range Comments WHITE BLOOD CELL COUNT (BEAKER) (test code = 9.4 K/ L 3.5 -10.5 775) RED BLOOD CELL COUNT (BEAKER) (test code = 761) 2.54 M/ L 4.63-6.08 HEMOGLOBIN (BEAKER) (test code = 410) 8.2 GM/DL 13.7-17.5 HEMATOCRIT (BEAKER) (test code = 411) 27.1 % 40.1-51.0 MEAN CORPUSCULAR VOLUME (BEAKER) (test code = 106.7 fL 79 .0-92.2 753) MEAN CORPUSCULAR HEMOGLOBIN (BEAKER) (test code 32.3 pg 25.7-32.2 = 751) MEAN CORPUSCULAR HEMOGLOBIN CONC (BEAKER) (test 30.3 GM/DL 32.3-36.5 code = 752) RED CELL DISTRIBUTION WIDTH (BEAKER) (test code 17.3 % 11.6-14.4 = 412) PLATELET COUNT (BEAKER) (test code = 756) 151 K/CU MM 150-45 0 MEAN PLATELET VOLUME (BEAKER) (test code = 754) 8.9 fL 9.4-12.4 NUCLEATED RED BLOOD CELLS (BEAKER) (test code = 1 /100 WBC 0-0 413) BASIC METABOLIC [id number] 05:10:00 Test Item Value Reference Range Comments SODIUM (BEAKER) (test 134 meq/L 136-145 code = 381) POTASSIUM (BEAKER) (test 4.0 meq/L 3.5-5.1 code = 379) CHLORIDE (BEAKER) (test 97 meq/L 98-107 code = 382) CO2 (BEAKER) (test code = 29 meq/L 22-29 355) BLOOD UREA NITROGEN 41 mg/dL 7-21 (BEAKER) (test code = 354) CREATININE (BEAKER) (test 4.78 mg/dL 0.57-1.25 code = 358) GLUCOSE RANDOM (BEAKER) 185 mg/dL 70-105 (test code = 652) CALCIUM (BEAKER) (test 9.3 mg/dL 8.4-10.2 code = 697) EGFR (BEAKER) (test code 15 mL/min/1.73 sq m EST IMATED GFR IS NOT = 1092) ACCURATE CREA TININE CLEARANCE IN PRE DICTING GLOMERULAR FILTR ATION RATE. ESTIMATED GFR IS NOT APPLICABLE F OR DIALYSIS PATIENT S. OCCULT BLOOD, [id number] 23:46:00 Test Item Value Reference Range Comments FECAL OCCULT BLOOD (BEAKER) (test code = 618) Negative Ne gative POCT-GLUCOSE [id number] 22:52:00 Test Item Value Reference Range Comments POC-GLUCOSE METER (BEAKER) 192 mg/dL 70-110 TESTE D AT [address] (test code = 1538) [facility] [address] POCT-GLUCOSE [id number] 17:11:00 Test Item Value Reference Range Comments POC-GLUCOSE METER (BEAKER) 149 mg/dL 70-110 TESTE D AT [address] (test code = 1538) [place] [address] PROTHROMBIN [id number] 13:00:00 Test Item Value Reference Range Comments PROTIME (BEAKER) (test code = 759) 19.9 seconds 11.7-14.7 INR (BEAKER) (test code = 370) 1.8 <=5.9 RECOMMENDED COUMADIN/WARFARIN INR THERAPY RANGESSTANDARD DOSE: 2.0 - 3.0 Includes: PROPHYLAXIS forvenous thrombosis, systemic embolization; TREATMENT for venous thrombosis and/or pulmonary embolus.HIGH RISK: Target INR is 2.5-3.5 for patients with mechanical heart valves.While on warfarin.POCT-GLUCOSE METER 2019-01-04 12:14:00 Test Item Value Reference Range Comments POC-GLUCOSE METER (BEAKER) 134 mg/dL 70-110 TESTE D AT [address] (test code = 1538) [place] [address] RAD, CHEST, 1 VIEW, NON [id number] 08:02:00Reason for exam:->Post opShould this be performed [...] interval change. Signed: Edenilson Bloom Verified Date/Time: 01/04/2019 08:02:18 Reading Location: [facility] B1 C013W Consult Reading Room Electronicallysigned by: EDENILSON BLOOM M.D. on 01/04/2019 08:02 AMPOCT-GLUCOSE [id number] 07:42:00 Test Item Value Reference Range Comments POC-GLUCOSE METER (BEAKER) 98 mg/dL 70-110 TESTE D AT [address] (test code = 1538) [place] [address] BASIC METABOLIC [id number] 07:28:00 Test Item Value Reference Range Comments SODIUM (BEAKER) (test 136 meq/L 136-145 code = 381) POTASSIUM (BEAKER) (test 4.1 meq/L 3.5-5.1 code = 379) CHLORIDE (BEAKER) (test 98 meq/L 98-107 code = 382) CO2 (BEAKER) (test code = 29 meq/L 22-29 355) BLOOD UREA NITROGEN 21 mg/dL 7-21 (BEAKER) (test code = 354) CREATININE (BEAKER) (test 3.10 mg/dL 0.57-1.25 code = 358) GLUCOSE RANDOM (BEAKER) 101 mg/dL 70-105 (test code = 652) CALCIUM (BEAKER) (test 9.4 mg/dL 8.4-10.2 code = 697) EGFR (BEAKER) (test code 25 mL/min/1.73 sq m EST IMATED GFR IS NOT = 1092) ACCURATE CREA TININE CLEARANCE IN PRE DICTING GLOMERULAR FILTR ATION RATE. ESTIMATED GFR IS NOT APPLICABLE F OR DIALYSIS PATIENT S. CBC (HEMOGRAM ONLY)2019-01-04 07:07:00 Test Item Value Reference Range Comments WHITE BLOOD CELL COUNT (BEAKER) (test code = 10.6 K/ L 3.5 -10.5 775) RED BLOOD CELL COUNT (BEAKER) (test code = 761) 2.69 M/ L 4.63-6.08 HEMOGLOBIN (BEAKER) (test code = 410) 8.7 GM/DL 13.7-17.5 HEMATOCRIT (BEAKER) (test code = 411) 28.4 % 40.1-51.0 MEAN CORPUSCULAR VOLUME (BEAKER) (test code = 105.6 fL 79 .0-92.2 753) MEAN CORPUSCULAR HEMOGLOBIN (BEAKER) (test code 32.3 pg 25.7-32.2 = 751) MEAN CORPUSCULAR HEMOGLOBIN CONC (BEAKER) (test 30.6 GM/DL 32.3-36.5 code = 752) RED CELL DISTRIBUTION WIDTH (BEAKER) (test code 17.2 % 11.6-14.4 = 412) PLATELET COUNT (BEAKER) (test code = 756) 170 K/CU MM 150-45 0 MEAN PLATELET VOLUME (BEAKER) (test code = 754) 9.1 fL 9.4-12.4 NUCLEATED RED BLOOD CELLS (BEAKER) (test code = 1 /100 WBC 0-0 413) [id number] 06:08:00 Test Item Value Reference Range Comments PARTIAL THROMBOPLASTIN TIME (BEAKER) (test code 70.6 seconds 22.5-36.0 = 760) [id number] 23:32:00 Test Item Value Reference Range Comments PARTIAL THROMBOPLASTIN TIME (BEAKER) (test code 77.2 seconds 22.5-36.0 = 760) POCT-GLUCOSE [id number] 21:55:00 Test Item Value Reference Range Comments POC-GLUCOSE METER (BEAKER) 150 mg/dL 70-110 TESTE D AT [address] (test code = 1538) [facility] [address] [id number] 18:25:00 Test Item Value Reference Range Comments PARTIAL THROMBOPLASTIN TIME (BEAKER) (test code 71.2 seconds 22.5-36.0 = 760) POCT-GLUCOSE [id number] 13:45:00 Test Item Value Reference Range Comments POC-GLUCOSE METER (BEAKER) 375 mg/dL 70-110 Notif ied LAURYN PÉREZ/TESTED AT [facility] (test code = 1538) [address] [place] [address] [id number] 10:26:00 Test Item Value Reference Range Comments PARTIAL THROMBOPLASTIN TIME (BEAKER) (test code 94.0 seconds 22.5-36.0 = 760) While on warfarin.PROTHROMBIN TIME/[id number] 10:24:00 Test Item Value Reference Range Comments PROTIME (BEAKER) (test code = 759) 19.3 seconds 11.7-14.7 INR (BEAKER) (test code = 370) 1.7 <=5.9 RECOMMENDED COUMADIN/WARFARIN INR THERAPY RANGESSTANDARD DOSE: 2.0 - 3.0 Includes: PROPHYLAXIS forvenous thrombosis, systemic embolization; TREATMENT for venous thrombosis and/or pulmonary embolus.HIGH RISK: Target INR is 2.5-3.5 for patients with mechanical heart valves.While on warfarin.POCT-GLUCOSE METER 2019-01-03 08:36:00 Test Item Value Reference Range Comments POC-GLUCOSE METER (BEAKER) 124 mg/dL 70-110 TESTE D AT [address] (test code = 1538) [facility] [address] RAD, CHEST, 1 VIEW, NON [id number] 08:19:00Reason for exam:->Post opShould this be performed at the bedside?->YesFINAL REPORT RAD, CHEST, 1 VIEW, NON DEPT INDICATION: Post op COMPARISON: Prior day's exam FINDINGS: Portable frontal view of the chest. IMPRESSION: Support Lines: Right IJ catheter tip overlies the SVC Lungs and pleura: Right effusion and adjacent airspace disease are unchanged. Loculated effusion within the minor fissure is unchanged. No pneumothorax.Heart and mediastinum:Stable contours. Additional findings: None. Signed: Radha Lisa Verified Date/Time: 01/03/2019 08:19:51 Reading Location: [facility] Neuro Reading Room [id number] 03:31:00 Test Item Value Reference Range Comments PARTIAL THROMBOPLASTIN TIME (BEAKER) (test code 64.2 seconds 22.5-36.0 = 760) BASIC METABOLIC [id number] 03:21:00 Test Item Value Reference Range Comments SODIUM (BEAKER) (test 132 meq/L 136-145 code = 381) POTASSIUM (BEAKER) (test 3.9 meq/L 3.5-5.1 code = 379) CHLORIDE (BEAKER) (test 95 meq/L 98-107 code = 382) CO2 (BEAKER) (test code = 28 meq/L 22-29 355) BLOOD UREA NITROGEN 37 mg/dL 7-21 (BEAKER) (test code = 354) CREATININE (BEAKER) (test 4.74 mg/dL 0.57-1.25 code = 358) GLUCOSE RANDOM (BEAKER) 125 mg/dL 70-105 (test code = 652) CALCIUM (BEAKER) (test 9.2 mg/dL 8.4-10.2 code = 697) EGFR (BEAKER) (test code 15 mL/min/1.73 sq m EST IMATED GFR IS NOT = 1092) ACCURATE CREA TININE CLEARANCE IN PRE DICTING GLOMERULAR FILTR ATION RATE. ESTIMATED GFR IS NOT APPLICABLE F OR DIALYSIS PATIENT S. CBC (HEMOGRAM ONLY)2019-01-03 02:58:00 Test Item Value Reference Range Comments WHITE BLOOD CELL COUNT (BEAKER) (test code = 10.8 K/ L 3.5 -10.5 775) RED BLOOD CELL COUNT (BEAKER) (test code = 761) 2.61 M/ L 4.63-6.08 HEMOGLOBIN (BEAKER) (test code = 410) 8.2 GM/DL 13.7-17.5 HEMATOCRIT (BEAKER) (test code = 411) 26.9 % 40.1-51.0 MEAN CORPUSCULAR VOLUME (BEAKER) (test code = 103.1 fL 79 .0-92.2 753) MEAN CORPUSCULAR HEMOGLOBIN (BEAKER) (test code 31.4 pg 25.7-32.2 = 751) MEAN CORPUSCULAR HEMOGLOBIN CONC (BEAKER) (test 30.5 GM/DL 32.3-36.5 code = 752) RED CELL DISTRIBUTION WIDTH (BEAKER) (test code 16.1 % 11.6-14.4 = 412) PLATELET COUNT (BEAKER) (test code = 756) 167 K/CU MM 150-45 0 MEAN PLATELET VOLUME (BEAKER) (test code = 754) 8.7 fL 9.4-12.4 NUCLEATED RED BLOOD CELLS (BEAKER) (test code = 1 /100 WBC 0-0 413) POCT-GLUCOSE [id number] 22:54:00 Test Item Value Reference Range Comments POC-GLUCOSE METER (BEAKER) 206 mg/dL 70-110 TESTE D AT [address] (test code = 1538) [place] [address] [id number] 19:36:00 Test Item Value Reference Range Comments PARTIAL THROMBOPLASTIN TIME (BEAKER) (test code 79.3 seconds 22.5-36.0 = 760) POCT-GLUCOSE [id number] 17:59:00 Test Item Value Reference Range Comments POC-GLUCOSE METER (BEAKER) 186 mg/dL 70-110 TESTE D AT [address] (test code = 1538) [place] [address] POCT-GLUCOSE [id number] 13:54:00 Test Item Value Reference Range Comments POC-GLUCOSE METER (BEAKER) 139 mg/dL 70-110 TESTE D AT [facility] [address] [facility] (test code = 1538) [facility] [address] POCT-GLUCOSE [id number] 13:05:00 Test Item Value Reference Range Comments POC-GLUCOSE METER (BEAKER) 163 mg/dL 70-110 TESTE D AT [facility] [address] [facility] (test code = 1538) [place] [address] [id number] 12:49:00 Test Item Value Reference Range Comments PARTIAL THROMBOPLASTIN TIME (BEAKER) (test code 64.9 seconds 22.5-36.0 = 760) OCCULT BLOOD, [id number] 12:31:00 Test Item Value Reference Range Comments FECAL OCCULT BLOOD (BEAKER) (test code = 618) Negative Tammi bautista RAD, CHEST, 1 VIEW, NON [id number] 10:37:00Reason for exam:->Post opShould this be performed at the bedside?->YesFINAL REPORT Portable chest. CLINICAL HISTORY: Post op. COMPARISON STUDY: Chest x- ray from yesterday. FINDINGS: The cardiac silhouette is enlarged. Sternotomy wires are seen. Thepatient is status post valve replacement. The pulmonary parenchyma demonstrate a rounded opacity in the right midlung, possibly loculated fluid. There is a small right pleural effusion with adjacent ate lectasis or consolidation and volume loss on the right side, stable from previous. The support linesand tubes are unchanged. No pneumothorax is seen. Degenerative changes are noted. IMPRESSION: No significant change. Signed: Sarah Beth Mejia [facility] Verified Date/Time: 01/02/2019 10:37:35 Reading Loc ation: [facility] Reading Room POCT-GLUCOSE [id number] 08:07:00 Test Item Value Reference Range Comments POC-GLUCOSE METER (BEAKER) 107 mg/dL 70-110 TESTE D AT [facility] [address] [facility] (test code = 1538) [place] [address] [id number] 04:48:00 Test Item Value Reference Range Comments PARTIAL THROMBOPLASTIN TIME (BEAKER) (test 106.0 seconds 22.5- 36.0 code = 760) While on warfarin.BASIC METABOLIC [id number] 04:48:00 Test Item Value Reference Range Comments SODIUM (BEAKER) (test 135 meq/L 136-145 code = 381) POTASSIUM (BEAKER) (test 4.0 meq/L 3.5-5.1 code = 379) CHLORIDE (BEAKER) (test 98 meq/L 98-107 code = 382) CO2 (BEAKER) (test code = 31 meq/L 22-29 355) BLOOD UREA NITROGEN 25 mg/dL 7-21 (BEAKER) (test code = 354) CREATININE (BEAKER) (test 3.58 mg/dL 0.57-1.25 code = 358) GLUCOSE RANDOM (BEAKER) 86 mg/dL 70-105 (test code = 652) CALCIUM (BEAKER) (test 9.1 mg/dL 8.4-10.2 code = 697) EGFR (BEAKER) (test code 21 mL/min/1.73 sq m EST IMATED GFR IS NOT = 1092) ACCURATE CREA TININE CLEARANCE IN PRE DICTING GLOMERULAR FILTR ATION RATE. ESTIMATED GFR IS NOT APPLICABLE F OR DIALYSIS PATIENT S. PROTHROMBIN [id number] 04:39:00 Test Item Value Reference Range Comments PROTIME (BEAKER) (test code = 759) 19.4 seconds 11.7-14.7 INR (BEAKER) (test code = 370) 1.7 <=5.9 RECOMMENDED COUMADIN/WARFARIN INR THERAPY RANGESSTANDARD DOSE: 2.0 - 3.0 Includes: PROPHYLAXIS forvenous thrombosis, systemic embolization; TREATMENT for venous thrombosis and/or pulmonary embolus.HIGH RISK: Target INR is 2.5-3.5 for patients with mechanical heart valves.While on warfarin.CBC (HEMOGRAM ONLY) 2019-01-02 04:30:00 Test Item Value Reference Range Comments WHITE BLOOD CELL COUNT (BEAKER) (test code = 12.4 K/ L 3.5 -10.5 775) RED BLOOD CELL COUNT (BEAKER) (test code = 761) 2.51 M/ L 4.63-6.08 HEMOGLOBIN (BEAKER) (test code = 410) 8.2 GM/DL 13.7-17.5 HEMATOCRIT (BEAKER) (test code = 411) 26.0 % 40.1-51.0 MEAN CORPUSCULAR VOLUME (BEAKER) (test code = 103.6 fL 79 .0-92.2 753) MEAN CORPUSCULAR HEMOGLOBIN (BEAKER) (test code 32.7 pg 25.7-32.2 = 751) MEAN CORPUSCULAR HEMOGLOBIN CONC (BEAKER) (test 31.5 GM/DL 32.3-36.5 code = 752) RED CELL DISTRIBUTION WIDTH (BEAKER) (test code 16.5 % 11.6-14.4 = 412) PLATELET COUNT (BEAKER) (test code = 756) 161 K/CU MM 150-45 0 MEAN PLATELET VOLUME (BEAKER) (test code = 754) 8.9 fL 9.4-12.4 NUCLEATED RED BLOOD CELLS (BEAKER) (test code = 0 /100 WBC 0-0 413) POCT-GLUCOSE [id number] 22:17:00 Test Item Value Reference Range Comments POC-GLUCOSE METER (BEAKER) 117 mg/dL 70-110 TESTE D AT [address] (test code = 1538) [facility] [address] RAD, CHEST, 1 VIEW, NON [id number] 19:40:00Reason for exam:->Post opShould this be performed [...] interval change. Signed: Edenilson Bloom Verified Date/Time: 01/01/2019 19:40:01 Reading Location: [facility] B1 C013W Consult Reading Room POCT-GLUCOSE [id number] 18:22:00 Test Item Value Reference Range Comments POC-GLUCOSE METER (BEAKER) 159 mg/dL 70-110 TESTE D AT [facility] [address] [facility] (test code = 1538) [place] [address] POCT-GLUCOSE [id number] 14:12:00 Test Item Value Reference Range Comments POC-GLUCOSE METER (BEAKER) 135 mg/dL 70-110 TESTE D AT [facility] [address] [facility] (test code = 1538) [place] [address] HEPATITIS B SURFACE [id number] 11:52:00 Test Item Value Reference Range Comments HEPATITIS B SURFACE ANTIGEN (2) (BEAKER) (test Nonreactive N onreactive code = 2585) POCT-GLUCOSE [id number] 08:40:00 Test Item Value Reference Range Comments POC-GLUCOSE METER (BEAKER) 85 mg/dL 70-110 TESTE D AT [address] (test code = 1538) [place] [address] BASIC METABOLIC [id number] 04:17:00 Test Item Value Reference Range Comments SODIUM (BEAKER) (test 132 meq/L 136-145 code = 381) POTASSIUM (BEAKER) (test 4.2 meq/L 3.5-5.1 Specime n slightly code = 379) hemolyzed CHLORIDE (BEAKER) (test 95 meq/L 98-107 code = 382) CO2 (BEAKER) (test code = 30 meq/L 22-29 355) BLOOD UREA NITROGEN 41 mg/dL 7-21 (BEAKER) (test code = 354) CREATININE (BEAKER) (test 4.98 mg/dL 0.57-1.25 Specim en slightly code = 358) hemolyzed GLUCOSE RANDOM (BEAKER) 96 mg/dL 70-105 (test code = 652) CALCIUM (BEAKER) (test 9.2 mg/dL 8.4-10.2 code = 697) EGFR (BEAKER) (test code 14 mL/min/1.73 sq m EST IMATED GFR IS NOT = 1092) ACCURATE CREA TININE CLEARANCE IN PRE DICTING GLOMERULAR FILTR ATION RATE. ESTIMATED GFR IS NOT APPLICABLE F OR DIALYSIS PATIENT S. [id number] 03:40:00 Test Item Value Reference Range Comments PARTIAL THROMBOPLASTIN TIME (BEAKER) (test code 84.1 seconds 22.5-36.0 = 760) While on warfarin.PROTHROMBIN TIME/[id number] 03:39:00 Test Item Value Reference Range Comments PROTIME (BEAKER) (test code = 759) 19.1 seconds 11.7-14.7 INR (BEAKER) (test code = 370) 1.7 <=5.9 RECOMMENDED COUMADIN/WARFARIN INR THERAPY RANGESSTANDARD DOSE: 2.0 - 3.0 Includes: PROPHYLAXIS forvenous thrombosis, systemic embolization; TREATMENT for venous thrombosis and/or pulmonary embolus.HIGH RISK: Target INR is 2.5-3.5 for patients with mechanical heart valves.While on warfarin.CBC (HEMOGRAM ONLY) 2019-01-01 03:29:00 Test Item Value Reference Range Comments WHITE BLOOD CELL COUNT (BEAKER) (test code = 13.2 K/ L 3.5 -10.5 775) RED BLOOD CELL COUNT (BEAKER) (test code = 761) 2.60 M/ L 4.63-6.08 HEMOGLOBIN (BEAKER) (test code = 410) 8.3 GM/DL 13.7-17.5 HEMATOCRIT (BEAKER) (test code = 411) 26.3 % 40.1-51.0 MEAN CORPUSCULAR VOLUME (BEAKER) (test code = 101.2 fL 79 .0-92.2 753) MEAN CORPUSCULAR HEMOGLOBIN (BEAKER) (test code 31.9 pg 25.7-32.2 = 751) MEAN CORPUSCULAR HEMOGLOBIN CONC (BEAKER) (test 31.6 GM/DL 32.3-36.5 code = 752) RED CELL DISTRIBUTION WIDTH (BEAKER) (test code 15.9 % 11.6-14.4 = 412) PLATELET COUNT (BEAKER) (test code = 756) 186 K/CU MM 150-45 0 MEAN PLATELET VOLUME (BEAKER) (test code = 754) 9.0 fL 9.4-12.4 NUCLEATED RED BLOOD CELLS (BEAKER) (test code = 0 /100 WBC 0-0 413) POCT-GLUCOSE [id number] 22:08:00 Test Item Value Reference Range Comments POC-GLUCOSE METER (BEAKER) 194 mg/dL 70-110 TESTE D AT [facility] [address] [facility] (test code = 1538) [facility] [phone] POCT-GLUCOSE [id number] 22:03:00 Test Item Value Reference Range Comments POC-GLUCOSE METER (BEAKER) 203 mg/dL 70-110 TESTE D AT [facility] [address] [facility] (test code = 1538) [place] [id number] POCT-GLUCOSE [id number] 21:42:00 Test Item Value Reference Range Comments POC-GLUCOSE METER (BEAKER) 42 mg/dL 70-110 TESTE D AT [facility] [address] [facility] (test code = 1538) [place] [id number] 030 [id number] 21:35:00 Test Item Value Reference Range Comments PARTIAL THROMBOPLASTIN TIME (BEAKER) (test code 80.4 seconds 22.5-36.0 = 760) POCT-GLUCOSE [id number] 18:03:00 Test Item Value Reference Range Comments POC-GLUCOSE METER (BEAKER) 144 mg/dL 70-110 TESTE D AT [address] (test code = 1538) [place] [address] 030 TISSUE [id number] 16:33:00Surgical Pathology Report Case: [id number] Authorizing Provider: Enmanuel Sharma Collected: 12/26/2018 1537 MD Liban OrderingLocation: [address] Received: 12/29/2018 0814 Service Pathologist: Brigida Parks MD Specimens: A) - Biopsy, Gastric, random gastric bx; gastritis B) - Biopsy, Mid-esophagus, mid esophagus ulcer bx; evaluate for HSV, CMV; hx of HIV This addendum is issued toreport the result of GMS stain on specimen B: - NEGATIVEThe interpretation of this case included theuse of immunohistochemistry or special stains. GMSImmunohistochemistry technical testing was performed at [facility], Pathology Laboratory where it was developed [...] toperform high complexity clinical laboratory testing.CPT CODE: [id number] electronically signed byBrigida Parks MD on 12/31/2018 at 4:33 PMTHIS FINAL REPORT IS ISSUED TO REPORT THE RESULTS OF IMMUNOHISTOCHEMICAL STAINS FOR CMV, HSV I AND HSV II: A. STOMACH, RANDOM, ENDOSCOPIC BIOPSY: - ANTRAL MUCOSA WITH MILD CHRONIC AND ACUTE GASTRITIS WITH REACTIVE GASTROPATHY - OXYNTIC MUCOSA WITH NOPATHOLOGIC ALTERATION - NO HELICOBACTER PYLORI-LIKE ORGANISMS SEEN ON WARTHIN-STARRY STAIN - NO INTESTINAL METAPLASIA,DYSPLASIA OR MALIGNANCY NOTED GASTROESOPHAGEAL MID-ESOPHAGUS, ENDOSCOPIC BIOPSY: - ACTIVE ESOPHAGITIS WITH ULCERATION AND GRANULATION TISSUE - GASTRIC MUCOSA WITH POSSIBLE EROSION AND REACTIVE CHANGES - NO INTESTINAL METAPLASIA SEEN - NO VIRAL INCLUSIONS ARE IDENTIFIED - NO DYSPLASIA OR MALIGNANCY PRESENT - IMMUNOHISTOCHEMICAL STUDIES FOR CMV, HSV I AND II ARE NEGATIVE Signing Pathologist Direct Phone Line: [phone] signed by Brigida Parks MD on 12/30/2018 at 6:43 PMPreliminary result electronically signed by Brigida Parks MD on 12/29/2018 at 4:54 [id number] X 2; [id number]; [id number]; [id number] X 2Upper endoscopy, biopsyPreoperative and postoperative diagnosis: [...] the use of immunohistochemistry or special stains. WARTHIN-STARRY; HSV I; HSVII AND CMVImmunohistochemistry technical testing was performed at [facility], Pathology Laboratory where it was developed [...] qualified toperform high complexity clinical laboratory testing.POCT-GLUCOSE [id number] 13:57:00 Test Item Value Reference Range Comments POC-GLUCOSE METER (BEAKER) 178 mg/dL 70-110 TESTE D AT [facility] [address] [facility] (test code = 1538) [place] [address] 030 [id number] 12:54:00 Test Item Value Reference Range Comments PARTIAL THROMBOPLASTIN TIME (BEAKER) (test code 69.4 seconds 22.5-36.0 = 760) RAD, CHEST, 1 VIEW, NON [id number] 09:26:00Reason for exam:->Post opShould this be performed [...] mid to lower lung. Signed: Dom Christianson [facility] HE[facility] SERVICESeport Verified Date/Time: 12/31/2018 09:26:31 Reading Location: [facility] Radiology Reading Room POCT-GLUCOSE [id number] 09:01:00 Test Item Value Reference Range Comments POC-GLUCOSE METER (BEAKER) 162 mg/dL 70-110 TESTE D AT [place] [id number] [facility] (test code = 1538) [place] [address]30 BASIC METABOLIC [id number] 06:50:00 Test Item Value Reference Range Comments SODIUM (BEAKER) (test 132 meq/L 136-145 code = 381) POTASSIUM (BEAKER) (test 3.5 meq/L 3.5-5.1 code = 379) CHLORIDE (BEAKER) (test 96 meq/L 98-107 code = 382) CO2 (BEAKER) (test code = 30 meq/L 22-29 355) BLOOD UREA NITROGEN 26 mg/dL 7-21 (BEAKER) (test code = 354) CREATININE (BEAKER) (test 3.97 mg/dL 0.57-1.25 code = 358) GLUCOSE RANDOM (BEAKER) 151 mg/dL 70-105 (test code = 652) CALCIUM (BEAKER) (test 8.5 mg/dL 8.4-10.2 code = 697) EGFR (BEAKER) (test code 19 mL/min/1.73 sq m EST IMATED GFR IS NOT = 1092) ACCURATE CREA TININE CLEARANCE IN PRE DICTING GLOMERULAR FILTR ATION RATE. ESTIMATED GFR IS NOT APPLICABLE F OR DIALYSIS PATIENT S. PROTHROMBIN [id number] 06:38:00 Test Item Value Reference Range Comments PROTIME (BEAKER) (test code = 759) 19.1 seconds 11.7-14.7 INR (BEAKER) (test code = 370) 1.7 <=5.9 RECOMMENDED COUMADIN/WARFARIN INR THERAPY RANGESSTANDARD DOSE: 2.0 - 3.0 Includes: PROPHYLAXIS forvenous thrombosis, systemic embolization; TREATMENT for venous thrombosis and/or pulmonary embolus.HIGH RISK: Target INR is 2.5-3.5 for patients with mechanical heart valves.While on warfarin.[id number] 06:37:00 Test Item Value Reference Range Comments PARTIAL THROMBOPLASTIN TIME (BEAKER) (test code 85.3 seconds 22.5-36.0 = 760) CBC (HEMOGRAM ONLY)2018-12-31 06:20:00 Test Item Value Reference Range Comments WHITE BLOOD CELL COUNT (BEAKER) (test code = 11.9 K/ L 3.5 -10.5 775) RED BLOOD CELL COUNT (BEAKER) (test code = 761) 2.58 M/ L 4.63-6.08 HEMOGLOBIN (BEAKER) (test code = 410) 8.3 GM/DL 13.7-17.5 HEMATOCRIT (BEAKER) (test code = 411) 26.2 % 40.1-51.0 MEAN CORPUSCULAR VOLUME (BEAKER) (test code = 101.6 fL 79 .0-92.2 753) MEAN CORPUSCULAR HEMOGLOBIN (BEAKER) (test code 32.2 pg 25.7-32.2 = 751) MEAN CORPUSCULAR HEMOGLOBIN CONC (BEAKER) (test 31.7 GM/DL 32.3-36.5 code = 752) RED CELL DISTRIBUTION WIDTH (BEAKER) (test code 15.9 % 11.6-14.4 = 412) PLATELET COUNT (BEAKER) (test code = 756) 156 K/CU MM 150-45 0 MEAN PLATELET VOLUME (BEAKER) (test code = 754) 8.7 fL 9.4-12.4 NUCLEATED RED BLOOD CELLS (BEAKER) (test code = 0 /100 WBC 0-0 413) POCT-GLUCOSE [id number] 00:45:00 Test Item Value Reference Range Comments POC-GLUCOSE METER (BEAKER) 124 mg/dL 70-110 TESTE D AT [address] (test code = 1538) [place] [address]30 [id number] 19:14:00 Test Item Value Reference Range Comments PARTIAL THROMBOPLASTIN TIME (BEAKER) (test code 57.8 seconds 22.5-36.0 = 760) POCT-GLUCOSE [id number] 17:53:00 Test Item Value Reference Range Comments POC-GLUCOSE METER (BEAKER) 133 mg/dL 70-110 TESTE D AT [address] (test code = 1538) [place] [address]30 POCT-GLUCOSE [id number] 13:19:00 Test Item Value Reference Range Comments POC-GLUCOSE METER (BEAKER) 147 mg/dL 70-110 TESTE D AT [address] (test code = 1538) [place] [address]30 [id number] 12:43:00 Test Item Value Reference Range Comments PARTIAL THROMBOPLASTIN TIME (BEAKER) (test code 57.0 seconds 22.5-36.0 = 760) [id number] 10:17:00 Test Item Value Reference Range Comments PARTIAL THROMBOPLASTIN TIME (BEAKER) (test 134.5 seconds 22.5- 36.0 code = 760) POCT-GLUCOSE [id number] 07:43:00 Test Item Value Reference Range Comments POC-GLUCOSE METER (BEAKER) 107 mg/dL 70-110 TESTE D AT [address] (test code = 1538) [place] [address] BASIC METABOLIC [id number] 06:46:00 Test Item Value Reference Range Comments SODIUM (BEAKER) (test 129 meq/L 136-145 code = 381) POTASSIUM (BEAKER) (test 4.1 meq/L 3.5-5.1 code = 379) CHLORIDE (BEAKER) (test 93 meq/L 98-107 code = 382) CO2 (BEAKER) (test code = 28 meq/L 22-29 355) BLOOD UREA NITROGEN 43 mg/dL 7-21 (BEAKER) (test code = 354) CREATININE (BEAKER) (test 6.30 mg/dL 0.57-1.25 code = 358) GLUCOSE RANDOM (BEAKER) 110 mg/dL 70-105 (test code = 652) CALCIUM (BEAKER) (test 8.5 mg/dL 8.4-10.2 code = 697) EGFR (BEAKER) (test code 11 mL/min/1.73 sq m EST IMATED GFR IS NOT = 1092) ACCURATE CREA TININE CLEARANCE IN PRE DICTING GLOMERULAR FILTR ATION RATE. ESTIMATED GFR IS NOT APPLICABLE F OR DIALYSIS PATIENT S. RAD, CHEST, 1 VIEW, NON [id number] 06:25:00Reason for exam:->Post opShould this be performed at the bedside?->YesFINAL REPORT RAD, CHEST, 1 VIEW, NON DEPT INDICATION: Post op COMPARISON: Prior day's exam FINDINGS: Portable frontal view of the chest. IMPRESSION: Support Lines: Right IJ catheter tip overlies the SVC. Lungs and pleura: Bilateral airspace disease is not significantly changed. Right CP angle remains obscured, likely by pleural effusion. No pneumothorax.Heart and mediastinum: Stable contours. Stable surgical changes.Additional findings: None. Signed: Radha Lisa Verified Date/Time: 12/30/2018 06:25:51 Reading Location: [facility] C013V Neuro Reading Room PROTHROMBIN [id number] 06:06:00 Test Item Value Reference Range Comments PROTIME (BEAKER) (test code = 759) 19.5 seconds 11.7-14.7 INR (BEAKER) (test code = 370) 1.8 <=5.9 RECOMMENDED COUMADIN/WARFARIN INR THERAPY RANGESSTANDARD DOSE: 2.0 - 3.0 Includes: PROPHYLAXIS forvenous thrombosis, systemic embolization; TREATMENT for venous thrombosis and/or pulmonary embolus.HIGH RISK: Target INR is 2.5-3.5 for patients with mechanical heart valves.While on warfarin.CBC (HEMOGRAM ONLY) 2018-12-30 06:00:00 Test Item Value Reference Range Comments WHITE BLOOD CELL COUNT (BEAKER) (test code = 11.4 K/ L 3.5 -10.5 775) RED BLOOD CELL COUNT (BEAKER) (test code = 761) 2.62 M/ L 4.63-6.08 HEMOGLOBIN (BEAKER) (test code = 410) 8.4 GM/DL 13.7-17.5 HEMATOCRIT (BEAKER) (test code = 411) 26.1 % 40.1-51.0 MEAN CORPUSCULAR VOLUME (BEAKER) (test code = 99.6 fL 79 .0-92.2 753) MEAN CORPUSCULAR HEMOGLOBIN (BEAKER) (test code 32.1 pg 25.7-32.2 = 751) MEAN CORPUSCULAR HEMOGLOBIN CONC (BEAKER) (test 32.2 GM/DL 32.3-36.5 code = 752) RED CELL DISTRIBUTION WIDTH (BEAKER) (test code 15.5 % 11.6-14.4 = 412) PLATELET COUNT (BEAKER) (test code = 756) 139 K/CU MM 150-45 0 MEAN PLATELET VOLUME (BEAKER) (test code = 754) 9.1 fL 9.4-12.4 NUCLEATED RED BLOOD CELLS (BEAKER) (test code = 0 /100 WBC 0-0 413) POCT-GLUCOSE [id number] 22:19:00 Test Item Value Reference Range Comments POC-GLUCOSE METER (BEAKER) 179 mg/dL 70-110 TESTE D AT [address] (test code = 1538) [facility] [address] POCT-GLUCOSE [id number] 17:39:00 Test Item Value Reference Range Comments POC-GLUCOSE METER (BEAKER) 181 mg/dL 70-110 TESTE D AT [address] (test code = 1538) [place] [address]30 POCT-GLUCOSE [id number] 13:14:00 Test Item Value Reference Range Comments POC-GLUCOSE METER (BEAKER) 102 mg/dL 70-110 TESTE D AT [address] (test code = 1538) [place] [address]30 RAD, CHEST, 1 VIEW, NON [id number] 08:56:00Reason for exam:->Post opShould this be performed [...] place. IMPRESSION: No interval change. Signed: Edenilson Bloomdamion Verified Date/Time: 12/29/2018 08:56:32 Reading Location: [facility] Radiology Reading Room Electronically signed by: EDENILSON BLOOM M.D.on 12/29/2018 08:56 AMPOCT-GLUCOSE [id number] 07:53:00 Test Item Value Reference Range Comments POC-GLUCOSE METER (BEAKER) 135 mg/dL 70-110 TESTE D AT [address] (test code = 1538) [place] [address]30 [id number] 06:45:00 Test Item Value Reference Range Comments PARTIAL THROMBOPLASTIN TIME (BEAKER) (test code 83.5 seconds 22.5-36.0 = 760) While on warfarin.PROTHROMBIN TIME/[id number] 06:44:00 Test Item Value Reference Range Comments PROTIME (BEAKER) (test code = 759) 17.1 seconds 11.7-14.7 INR (BEAKER) (test code = 370) 1.5 <=5.9 RECOMMENDED COUMADIN/WARFARIN INR THERAPY RANGESSTANDARD DOSE: 2.0 - 3.0 Includes: PROPHYLAXIS forvenous thrombosis, systemic embolization; TREATMENT for venous thrombosis and/or pulmonary embolus.HIGH RISK: Target INR is 2.5-3.5 for patients with mechanical heart valves.While on warfarin.BASIC METABOLIC PANEL 2018-12-29 05:56:00 Test Item Value Reference Range Comments SODIUM (BEAKER) (test 129 meq/L 136-145 code = 381) POTASSIUM (BEAKER) (test 4.2 meq/L 3.5-5.1 code = 379) CHLORIDE (BEAKER) (test 93 meq/L 98-107 code = 382) CO2 (BEAKER) (test code = 29 meq/L 22-29 355) BLOOD UREA NITROGEN 31 mg/dL 7-21 (BEAKER) (test code = 354) CREATININE (BEAKER) (test 5.18 mg/dL 0.57-1.25 code = 358) GLUCOSE RANDOM (BEAKER) 96 mg/dL 70-105 (test code = 652) CALCIUM (BEAKER) (test 8.3 mg/dL 8.4-10.2 code = 697) EGFR (BEAKER) (test code 14 mL/min/1.73 sq m EST IMATED GFR IS NOT = 1092) ACCURATE CREA TININE CLEARANCE IN PRE DICTING GLOMERULAR FILTR ATION RATE. ESTIMATED GFR IS NOT APPLICABLE F OR DIALYSIS PATIENT S. CBC (HEMOGRAM ONLY)2018-12-29 05:22:00 Test Item Value Reference Range Comments WHITE BLOOD CELL COUNT (BEAKER) (test code = 12.0 K/ L 3.5 -10.5 775) RED BLOOD CELL COUNT (BEAKER) (test code = 761) 2.66 M/ L 4.63-6.08 HEMOGLOBIN (BEAKER) (test code = 410) 8.7 GM/DL 13.7-17.5 HEMATOCRIT (BEAKER) (test code = 411) 26.6 % 40.1-51.0 MEAN CORPUSCULAR VOLUME (BEAKER) (test code = 100.0 fL 79 .0-92.2 753) MEAN CORPUSCULAR HEMOGLOBIN (BEAKER) (test code 32.7 pg 25.7-32.2 = 751) MEAN CORPUSCULAR HEMOGLOBIN CONC (BEAKER) (test 32.7 GM/DL 32.3-36.5 code = 752) RED CELL DISTRIBUTION WIDTH (BEAKER) (test code 15.6 % 11.6-14.4 = 412) PLATELET COUNT (BEAKER) (test code = 756) 131 K/CU MM 150-45 0 MEAN PLATELET VOLUME (BEAKER) (test code = 754) 9.1 fL 9.4-12.4 NUCLEATED RED BLOOD CELLS (BEAKER) (test code = 0 /100 WBC 0-0 413) [id number] 00:01:00 Test Item Value Reference Range Comments PARTIAL THROMBOPLASTIN TIME (BEAKER) (test code 78.5 seconds 22.5-36.0 = 760) POCT-GLUCOSE [id number] 21:26:00 Test Item Value Reference Range Comments POC-GLUCOSE METER (BEAKER) 139 mg/dL 70-110 TESTE D AT [address] (test code = 1538) [place] [address] POCT-GLUCOSE [id number] 17:58:00 Test Item Value Reference Range Comments POC-GLUCOSE METER (BEAKER) 146 mg/dL 70-110 TESTE D AT [address] (test code = 1538) [place] [address] [id number] 17:16:00 Test Item Value Reference Range Comments PARTIAL THROMBOPLASTIN TIME (BEAKER) (test code 34.5 seconds 22.5-36.0 = 760) Prior to initiating heparinPOCT-GLUCOSE [id number] 12:54:00 Test Item Value Reference Range Comments POC-GLUCOSE METER (BEAKER) 133 mg/dL 70-110 TESTE D AT [address] (test code = 1538) [place] [address] RAD, CHEST, 1 VIEW, NON [id number] 08:06:00Reason for exam:->Post opShould this be performed at the bedside?->YesFINAL REPORT Chest one view. Clinical history: Post op Comparison: 12/27/2018 Discussion: A frontal chest is provided. Cardiomediastinal contours are unchanged. Lines and tubesare in stable position. Unchanged right-sided pleural-parenchymal opacities. Left lung is grossly clear. Vessels do not appear engorged. No pneumothorax. Signed: Dionicio Chery Verified Date/Time: 12/28/2018 08:06:07 Reading Location: [address] Neuro Reading Room BASIC METABOLIC [id number] 06:52:00 Test Item Value Reference Range Comments SODIUM (BEAKER) (test 130 meq/L 136-145 code = 381) POTASSIUM (BEAKER) (test 3.9 meq/L 3.5-5.1 code = 379) CHLORIDE (BEAKER) (test 94 meq/L 98-107 code = 382) CO2 (BEAKER) (test code = 29 meq/L 22-29 355) BLOOD UREA NITROGEN 18 mg/dL 7-21 (BEAKER) (test code = 354) CREATININE (BEAKER) (test 3.73 mg/dL 0.57-1.25 code = 358) GLUCOSE RANDOM (BEAKER) 104 mg/dL 70-105 (test code = 652) CALCIUM (BEAKER) (test 8.7 mg/dL 8.4-10.2 code = 697) EGFR (BEAKER) (test code 20 mL/min/1.73 sq m EST IMATED GFR IS NOT = 1092) ACCURATE CREA TININE CLEARANCE IN PRE DICTING GLOMERULAR FILTR ATION RATE. ESTIMATED GFR IS NOT APPLICABLE F OR DIALYSIS PATIENT S. PROTHROMBIN TIME/[id number] 06:31:00 Test Item Value Reference Range Comments PROTIME (BEAKER) (test code = 759) 19.4 seconds 11.7-14.7 INR (BEAKER) (test code = 370) 1.7 <=5.9 RECOMMENDED COUMADIN/WARFARIN INR THERAPY RANGESSTANDARD DOSE: 2.0 - 3.0 Includes: PROPHYLAXIS forvenous thrombosis, systemic embolization; TREATMENT for venous thrombosis and/or pulmonary embolus.HIGH RISK: Target INR is 2.5-3.5 for patients with mechanical heart valves.CBC (HEMOGRAM ONLY)2018-12-28 06:09:00 Test Item Value Reference Range Comments WHITE BLOOD CELL COUNT (BEAKER) (test code = 9.9 K/ L 3.5 -10.5 775) RED BLOOD CELL COUNT (BEAKER) (test code = 761) 2.79 M/ L 4.63-6.08 HEMOGLOBIN (BEAKER) (test code = 410) 8.9 GM/DL 13.7-17.5 HEMATOCRIT (BEAKER) (test code = 411) 28.2 % 40.1-51.0 MEAN CORPUSCULAR VOLUME (BEAKER) (test code = 101.1 fL 79 .0-92.2 753) MEAN CORPUSCULAR HEMOGLOBIN (BEAKER) (test code 31.9 pg 25.7-32.2 = 751) MEAN CORPUSCULAR HEMOGLOBIN CONC (BEAKER) (test 31.6 GM/DL 32.3-36.5 code = 752) RED CELL DISTRIBUTION WIDTH (BEAKER) (test code 15.9 % 11.6-14.4 = 412) PLATELET COUNT (BEAKER) (test code = 756) 110 K/CU MM 150-45 0 MEAN PLATELET VOLUME (BEAKER) (test code = 754) 9.3 fL 9.4-12.4 NUCLEATED RED BLOOD CELLS (BEAKER) (test code = 0 /100 WBC 0-0 413) POCT-GLUCOSE [id number] 21:41:00 Test Item Value Reference Range Comments POC-GLUCOSE METER (BEAKER) 163 mg/dL 70-110 TESTE D AT [facility] [address] [facility] (test code = 1538) [place] [address] POCT-GLUCOSE [id number] 17:23:00 Test Item Value Reference Range Comments POC-GLUCOSE METER (BEAKER) 119 mg/dL 70-110 TESTE D AT [address] (test code = 1538) [place] [address] RAD, CHEST, 1 VIEW, NON [id number] 14:49:00Reason for exam:->Post opShould this be performed [...] cavoatrial junction. No othersignificant change. Signed: Kyle Romeort Verified Date/Time: 12/27/2018 14:49:48 Reading Location: [facility] [address] [place] [address] Consult Reading Room ANG, NON-TUNNELED CATH >5 Y.O. [id number] 14:17:00Reason for exam:->Central line placement, poor access, [...] and draped in the usual sterile manner. Acc ess was obtained using sonographic guidance. Ultrasound images were sent to PACS to document patency and compressibility. The right internal jugular vein was catheterized. A guide wire was advanced centrally. A 7 [place] 20 cm triple lumen catheter was advanced [...] the chest demonstrates the new central line termi nating in the right atrium. Impression: Successful, uncomplicated ultrasound and fluoroscopic guidedplacement of a right internal jugular central venous catheter terminating in the right atrium.Signed: Bonny Sykes Verified Date/Time: 12/27/2018 14:17:02 Reading Location: [place] [address] Angio Body Reading Room [id number] 13:44:00 Test Item Value Reference Range Comments PARTIAL THROMBOPLASTIN TIME (BEAKER) (test code 44.3 seconds 22.5-36.0 = 760) Prior to initiating heparinPOCT-GLUCOSE [id number] 13:27:00 Test Item Value Reference Range Comments POC-GLUCOSE METER (BEAKER) 127 mg/dL 70-110 TESTE D AT [facility] [address] (test code = 1538) [facility] [address] POCT-GLUCOSE [id number] 08:58:00 Test Item Value Reference Range Comments POC-GLUCOSE METER (BEAKER) 79 mg/dL 70-110 TESTE D AT [facility] [address] (test code = 1538) [facility] [address] BASIC METABOLIC [id number] 07:09:00 Test Item Value Reference Range Comments SODIUM (BEAKER) (test 135 meq/L 136-145 code = 381) POTASSIUM (BEAKER) (test 3.8 meq/L 3.5-5.1 code = 379) CHLORIDE (BEAKER) (test 96 meq/L 98-107 code = 382) CO2 (BEAKER) (test code = 35 meq/L 22-29 355) BLOOD UREA NITROGEN 18 mg/dL 7-21 (BEAKER) (test code = 354) CREATININE (BEAKER) (test 4.91 mg/dL 0.57-1.25 code = 358) GLUCOSE RANDOM (BEAKER) 81 mg/dL 70-105 (test code = 652) CALCIUM (BEAKER) (test 8.5 mg/dL 8.4-10.2 code = 697) EGFR (BEAKER) (test code 15 mL/min/1.73 sq m EST IMATED GFR IS NOT = 1092) ACCURATE CREA TININE CLEARANCE IN PRE DICTING GLOMERULAR FILTR ATION RATE. ESTIMATED GFR IS NOT APPLICABLE F OR DIALYSIS PATIENT S. PROTHROMBIN TIME/[id number] 06:52:00 Test Item Value Reference Range Comments PROTIME (BEAKER) (test code = 759) 23.3 seconds 11.7-14.7 INR (BEAKER) (test code = 370) 2.0 <=5.9 RECOMMENDED COUMADIN/WARFARIN INR THERAPY RANGESSTANDARD DOSE: 2.0 - 3.0 Includes: PROPHYLAXIS forvenous thrombosis, systemic embolization; TREATMENT for venous thrombosis and/or pulmonary embolus.HIGH RISK: Target INR is 2.5-3.5 for patients with mechanical heart valves.CBC (HEMOGRAM ONLY)2018-12-27 06:28:00 Test Item Value Reference Range Comments WHITE BLOOD CELL COUNT (BEAKER) (test code = 775) 7.1 K/ L 3.5-10.5 RED BLOOD CELL COUNT (BEAKER) (test code = 761) 2.16 M/ L 4.63-6.08 HEMOGLOBIN (BEAKER) (test code = 410) 6.9 GM/DL 13.7-17.5 HEMATOCRIT (BEAKER) (test code = 411) 22.5 % 40.1-51.0 MEAN CORPUSCULAR VOLUME (BEAKER) (test code = 104.2 fL 79 .0-92.2 753) MEAN CORPUSCULAR HEMOGLOBIN (BEAKER) (test code = 31.9 pg 25.7-32.2 751) MEAN CORPUSCULAR HEMOGLOBIN CONC (BEAKER) (test 30.7 GM/DL 32.3-36.5 code = 752) RED CELL DISTRIBUTION WIDTH (BEAKER) (test code = 15.0 % 11.6-14.4 412) PLATELET COUNT (BEAKER) (test code = 756) 90 K/CU MM 150-45 0 MEAN PLATELET VOLUME (BEAKER) (test code = 754) 9.1 fL 9.4-12.4 NUCLEATED RED BLOOD CELLS (BEAKER) (test code = 0 /100 WBC 0-0 413) POCT-GLUCOSE [id number] 23:54:00 Test Item Value Reference Range Comments POC-GLUCOSE METER (BEAKER) 73 mg/dL 70-110 TESTE D AT [address] (test code = 1538) [place] [address] POCT-GLUCOSE [id number] 16:02:00 Test Item Value Reference Range Comments POC-GLUCOSE METER (BEAKER) 108 mg/dL 70-110 TESTE D AT [address] (test code = 1538) [place] [address] POCT-GLUCOSE [id number] 15:24:00 Test Item Value Reference Range Comments POC-GLUCOSE METER (BEAKER) 74 mg/dL 70-110 TESTE D AT [address] (test code = 1538) [place] [address] POCT-GLUCOSE [id number] 10:29:00 Test Item Value Reference Range Comments POC-GLUCOSE METER (BEAKER) 88 mg/dL 70-110 TESTE D AT [address] (test code = 1538) [place] [address] RAD, CHEST, 1 VIEW, NON [id number] 07:33:00Reason for exam:->Post opShould this be performed [...] Signed: Sarah Beth Mejia MDReport Verified Date/Time: 12/26/2018 07:33:38 Reading Location: [facility] Radiology Reading Room BASIC METABOLIC [id number] 06:42:00 Test Item Value Reference Range Comments SODIUM (BEAKER) (test 137 meq/L 136-145 code = 381) POTASSIUM (BEAKER) (test 3.9 meq/L 3.5-5.1 code = 379) CHLORIDE (BEAKER) (test 98 meq/L 98-107 code = 382) CO2 (BEAKER) (test code = 34 meq/L 22-29 355) BLOOD UREA NITROGEN 12 mg/dL 7-21 (BEAKER) (test code = 354) CREATININE (BEAKER) (test 3.18 mg/dL 0.57-1.25 code = 358) GLUCOSE RANDOM (BEAKER) 89 mg/dL 70-105 (test code = 652) CALCIUM (BEAKER) (test 8.9 mg/dL 8.4-10.2 code = 697) EGFR (BEAKER) (test code 24 mL/min/1.73 sq m EST IMATED GFR IS NOT = 1092) ACCURATE CREA TININE CLEARANCE IN PRE DICTING GLOMERULAR FILTR ATION RATE. ESTIMATED GFR IS NOT APPLICABLE F OR DIALYSIS PATIENT S. CBC (HEMOGRAM ONLY)2018-12-26 06:05:00 Test Item Value Reference Range Comments WHITE BLOOD CELL COUNT (BEAKER) (test code = 775) 6.3 K/ L 3.5-10.5 RED BLOOD CELL COUNT (BEAKER) (test code = 761) 2.25 M/ L 4.63-6.08 HEMOGLOBIN (BEAKER) (test code = 410) 7.4 GM/DL 13.7-17.5 HEMATOCRIT (BEAKER) (test code = 411) 23.1 % 40.1-51.0 MEAN CORPUSCULAR VOLUME (BEAKER) (test code = 102.7 fL 79 .0-92.2 753) MEAN CORPUSCULAR HEMOGLOBIN (BEAKER) (test code = 32.9 pg 25.7-32.2 751) MEAN CORPUSCULAR HEMOGLOBIN CONC (BEAKER) (test 32.0 GM/DL 32.3-36.5 code = 752) RED CELL DISTRIBUTION WIDTH (BEAKER) (test code = 15.0 % 11.6-14.4 412) PLATELET COUNT (BEAKER) (test code = 756) 84 K/CU MM 150-45 0 MEAN PLATELET VOLUME (BEAKER) (test code = 754) 8.6 fL 9.4-12.4 NUCLEATED RED BLOOD CELLS (BEAKER) (test code = 1 /100 WBC 0-0 413) PROTHROMBIN [id number] 05:44:00 Test Item Value Reference Range Comments PROTIME (BEAKER) (test code = 759) 24.4 seconds 11.7-14.7 INR (BEAKER) (test code = 370) 2.2 <=5.9 RECOMMENDED COUMADIN/WARFARIN INR THERAPY RANGESSTANDARD DOSE: 2.0 - 3.0 Includes: PROPHYLAXIS forvenous thrombosis, systemic embolization; TREATMENT for venous thrombosis and/or pulmonary embolus.HIGH RISK: Target INR is 2.5-3.5 for patients with mechanical heart valves.POCT-GLUCOSE [id number] 00:06:00 Test Item Value Reference Range Comments POC-GLUCOSE METER (BEAKER) 88 mg/dL 70-110 TESTE D AT [address] (test code = 1538) [facility] [phone] POCT-GLUCOSE [id number] 19:06:00 Test Item Value Reference Range Comments POC-GLUCOSE METER (BEAKER) 121 mg/dL 70-110 [address]E [address] (test code = 1538) [place] [address] PROTHROMBIN [id number] 16:10:00 Test Item Value Reference Range Comments PROTIME (BEAKER) (test code = 759) 30.1 seconds 11.7-14.7 INR (BEAKER) (test code = 370) 2.9 <=5.9 RECOMMENDED COUMADIN/WARFARIN INR THERAPY RANGESSTANDARD DOSE: 2.0 - 3.0 Includes: PROPHYLAXIS forvenous thrombosis, systemic embolization; TREATMENT for venous thrombosis and/or pulmonary embolus.HIGH RISK: Target INR is 2.5-3.5 for patients with mechanical heart valves.BASIC METABOLIC [id number] 16:10:00 Test Item Value Reference Range Comments SODIUM (BEAKER) (test 128 meq/L 136-145 code = 381) POTASSIUM (BEAKER) (test 4.9 meq/L 3.5-5.1 code = 379) CHLORIDE (BEAKER) (test 92 meq/L 98-107 code = 382) CO2 (BEAKER) (test code = 27 meq/L 22-29 355) BLOOD UREA NITROGEN 37 mg/dL 7-21 (BEAKER) (test code = 354) CREATININE (BEAKER) (test 5.70 mg/dL 0.57-1.25 code = 358) GLUCOSE RANDOM (BEAKER) 108 mg/dL 70-105 (test code = 652) CALCIUM (BEAKER) (test 8.8 mg/dL 8.4-10.2 code = 697) EGFR (BEAKER) (test code 12 mL/min/1.73 sq m EST IMATED GFR IS NOT = 1092) ACCURATE CREA TININE CLEARANCE IN PRE DICTING GLOMERULAR FILTR ATION RATE. ESTIMATED GFR IS NOT APPLICABLE F OR DIALYSIS PATIENT S. [id number] 16:09:00 Test Item Value Reference Range Comments MAGNESIUM (BEAKER) (test code = 627) 1.7 mg/dL 1.6-2.6 CBC (HEMOGRAM ONLY)2018-12-25 16:01:00 Test Item Value Reference Range Comments WHITE BLOOD CELL COUNT (BEAKER) (test code = 775) 6.0 K/ L 3.5-10.5 RED BLOOD CELL COUNT (BEAKER) (test code = 761) 2.35 M/ L 4.63-6.08 HEMOGLOBIN (BEAKER) (test code = 410) 7.7 GM/DL 13.7-17.5 HEMATOCRIT (BEAKER) (test code = 411) 23.7 % 40.1-51.0 MEAN CORPUSCULAR VOLUME (BEAKER) (test code = 100.9 fL 79 .0-92.2 753) MEAN CORPUSCULAR HEMOGLOBIN (BEAKER) (test code = 32.8 pg 25.7-32.2 751) MEAN CORPUSCULAR HEMOGLOBIN CONC (BEAKER) (test 32.5 GM/DL 32.3-36.5 code = 752) RED CELL DISTRIBUTION WIDTH (BEAKER) (test code = 14.7 % 11.6-14.4 412) PLATELET COUNT (BEAKER) (test code = 756) 90 K/CU MM 150-45 0 MEAN PLATELET VOLUME (BEAKER) (test code = 754) 9.4 fL 9.4-12.4 NUCLEATED RED BLOOD CELLS (BEAKER) (test code = 1 /100 WBC 0-0 413) POCT-GLUCOSE [id number] 08:03:00 Test Item Value Reference Range Comments POC-GLUCOSE METER (BEAKER) 89 mg/dL 70-110 TESTE D AT [facility] [address] [facility] (test code = 1538) [facility] [address] RAD, CHEST, 1 VIEW, NON [id number] 07:46:00Reason for exam:->Post opShould this be performed at the bedside?->YesFINAL REPORT Chest one view. Clinical history: Post op Comparison: 12/24/2018 Discussion: A frontal chest is provided. Cardiomediastinal contours are unchanged. Stable appearance of pleural-parenchymal opacity at the right mid to lower lung. There is a tiny right apical pneumothorax, unchanged. Probable trace left effusion. Signed: Dionicio Chery Verified Date/Time: 07:46:01 Reading Location: [facility] Radiology Reading Room RAD, ABDOMEN/KUB, 1 VIEW [id number] 07:25:00Reason for exam:->abdominal distentionShould this be performed at the bedside?->YesFINAL REPORT Abdomen one view Comparison: January 18, 2018 Reason for exam: abd ominal distention Findings: Bowel gas pattern is nonobstructive, nonspecific. No free air is identified. No suspicious calcification. No acute bony abnormality. Liver appears enlarged. There is pleuralparenchymal opacity in the mid to lower right lung. Signed: Dionicio Chery Verified Date/Time: 12/25/2018 07:25:40 Reading Location: [facility] Radiology Reading Room POCT-GLUCOSE [id number] 22:06:00 Test Item Value Reference Range Comments POC-GLUCOSE METER (BEAKER) 102 mg/dL 70-110 TESTE D AT [address] (test code = 1538) [place] [address] POCT-GLUCOSE [id number] 18:44:00 Test Item Value Reference Range Comments POC-GLUCOSE METER (BEAKER) 100 mg/dL 70-110 TESTE D AT [address] (test code = 1538) [place] [address] POCT-GLUCOSE [id number] 14:54:00 Test Item Value Reference Range Comments POC-GLUCOSE METER (BEAKER) 103 mg/dL 70-110 TESTE D AT [address] (test code = 1538) [place] [address] [id number] 08:07:00 Test Item Value Reference Range Comments FERRITIN (BEAKER) (test code = 361) 2044 ng/mL 5-275 POCT-GLUCOSE [id number] 07:57:00 Test Item Value Reference Range Comments POC-GLUCOSE METER (BEAKER) 76 mg/dL 70-110 TESTE D AT [address] (test code = 1538) [place] [address] RAD, CHEST, 1 VIEW, NON [id number] 07:57:00Reason for exam:->Post opShould this be performed [...] MDReport Verified Date/Time: 12/24/2018 07:57:06 Reading Location: [facility] Radiology Reading Room CBC (HEMOGRAM ONLY) 2018-12-24 07:23:00 Test Item Value Reference Range Comments WHITE BLOOD CELL COUNT (BEAKER) (test code = 775) 5.2 K/ L 3.5-10.5 RED BLOOD CELL COUNT (BEAKER) (test code = 761) 2.35 M/ L 4.63-6.08 HEMOGLOBIN (BEAKER) (test code = 410) 7.6 GM/DL 13.7-17.5 HEMATOCRIT (BEAKER) (test code = 411) 24.6 % 40.1-51.0 MEAN CORPUSCULAR VOLUME (BEAKER) (test code = 104.7 fL 79 .0-92.2 753) MEAN CORPUSCULAR HEMOGLOBIN (BEAKER) (test code = 32.3 pg 25.7-32.2 751) MEAN CORPUSCULAR HEMOGLOBIN CONC (BEAKER) (test 30.9 GM/DL 32.3-36.5 code = 752) RED CELL DISTRIBUTION WIDTH (BEAKER) (test code = 14.8 % 11.6-14.4 412) PLATELET COUNT (BEAKER) (test code = 756) 78 K/CU MM 150-45 0 MEAN PLATELET VOLUME (BEAKER) (test code = 754) 9.8 fL 9.4-12.4 NUCLEATED RED BLOOD CELLS (BEAKER) (test code = 1 /100 WBC 0-0 413) BASIC METABOLIC [id number] 07:14:00 Test Item Value Reference Range Comments SODIUM (BEAKER) (test 131 meq/L 136-145 code = 381) POTASSIUM (BEAKER) (test 4.9 meq/L 3.5-5.1 code = 379) CHLORIDE (BEAKER) (test 93 meq/L 98-107 code = 382) CO2 (BEAKER) (test code = 34 meq/L 22-29 355) BLOOD UREA NITROGEN 24 mg/dL 7-21 (BEAKER) (test code = 354) CREATININE (BEAKER) (test 4.11 mg/dL 0.57-1.25 code = 358) GLUCOSE RANDOM (BEAKER) 94 mg/dL 70-105 (test code = 652) CALCIUM (BEAKER) (test 8.8 mg/dL 8.4-10.2 code = 697) EGFR (BEAKER) (test code 18 mL/min/1.73 sq m EST IMATED GFR IS NOT = 1092) ACCURATE CREA TININE CLEARANCE IN PRE DICTING GLOMERULAR FILTR ATION RATE. ESTIMATED GFR IS NOT APPLICABLE F OR DIALYSIS PATIENT S. [id number] 07:08:00 Test Item Value Reference Range Comments MAGNESIUM (BEAKER) (test code = 627) 1.8 mg/dL 1.6-2.6 IRON, TIBC, % SAT. (WITHOUT FERRITIN)2018-12-24 07:07:00 Test Item Value Reference Range Comments IRON (BEAKER) (test code = 547) 35.0 ug/dL 40.0-160.0 TOTAL IRON BINDING CAPACITY (BEAKER) (test code = 150 ug/dL 250-450 769) IRON % SATURATION (2) (BEAKER) (test code = 2590) 23 % 20-55 PROTHROMBIN [id number] 07:05:00 Test Item Value Reference Range Comments PROTIME (BEAKER) (test code = 759) 38.7 seconds 11.7-14.7 INR (BEAKER) (test code = 370) 3.9 <=5.9 RECOMMENDED COUMADIN/WARFARIN INR THERAPY RANGESSTANDARD DOSE: 2.0 - 3.0 Includes: PROPHYLAXIS forvenous thrombosis, systemic embolization; TREATMENT for venous thrombosis and/or pulmonary embolus.HIGH RISK: Target INR is 2.5-3.5 for patients with mechanical heart valves.POCT-GLUCOSE [id number] 00:26:00 Test Item Value Reference Range Comments POC-GLUCOSE METER (BEAKER) 86 mg/dL 70-110 TESTE D AT [facility] [address] (test code = 1538) [place] [address] POCT-GLUCOSE [id number] 00:26:00 Test Item Value Reference Range Comments POC-GLUCOSE METER (BEAKER) 137 mg/dL 70-110 TESTE D AT [facility] [address] [place] [address] (test code = 1538) [place] [address] POCT-GLUCOSE [id number] 16:07:00 Test Item Value Reference Range Comments POC-GLUCOSE METER (BEAKER) 72 mg/dL 70-110 TESTE D AT [address] (test code = 1538) [place] [address] POCT-GLUCOSE [id number] 16:07:00 Test Item Value Reference Range Comments POC-GLUCOSE METER (BEAKER) 61 mg/dL 70-110 TESTE D AT [address] (test code = 1538) [place] [address] POCT-GLUCOSE [id number] 11:27:00 Test Item Value Reference Range Comments POC-GLUCOSE METER (BEAKER) 82 mg/dL 70-110 TESTE D AT [address] (test code = 1538) [place] [address] POCT-GLUCOSE [id number] 10:32:00 Test Item Value Reference Range Comments POC-GLUCOSE METER (BEAKER) 43 mg/dL 70-110 TESTE D AT [address] (test code = 1538) [place] [address] BASIC METABOLIC [id number] 07:28:00 Test Item Value Reference Range Comments SODIUM (BEAKER) (test 132 meq/L 136-145 code = 381) POTASSIUM (BEAKER) (test 5.4 meq/L 3.5-5.1 Specime n slightly code = 379) hemolyzed CHLORIDE (BEAKER) (test 95 meq/L 98-107 code = 382) CO2 (BEAKER) (test code = 24 meq/L 22-29 355) BLOOD UREA NITROGEN 52 mg/dL 7-21 (BEAKER) (test code = 354) CREATININE (BEAKER) (test 5.91 mg/dL 0.57-1.25 Specim en slightly code = 358) hemolyzed GLUCOSE RANDOM (BEAKER) 49 mg/dL 70-105 (test code = 652) CALCIUM (BEAKER) (test 9.1 mg/dL 8.4-10.2 code = 697) EGFR (BEAKER) (test code 12 mL/min/1.73 sq m EST IMATED GFR IS NOT = 1092) ACCURATE CREA TININE CLEARANCE IN PRE DICTING GLOMERULAR FILTR ATION RATE. ESTIMATED GFR IS NOT APPLICABLE F OR DIALYSIS PATIENT S. [id number] 07:24:00 Test Item Value Reference Range Comments MAGNESIUM (BEAKER) (test code = 2.0 mg/dL 1.6-2.6 Specimen slightly hemolyzed 627) [id number] 07:24:00 Test Item Value Reference Range Comments PHOSPHORUS (BEAKER) (test code 4.4 mg/dL 2.3-4.7 S pecimen slightly hemolyzed = 604) PROTHROMBIN [id number] 07:20:00 Test Item Value Reference Range Comments PROTIME (BEAKER) (test code = 759) 57.8 seconds 11.7-14.7 INR (BEAKER) (test code = 370) 6.8 <=5.9 RECOMMENDED COUMADIN/WARFARIN INR THERAPY RANGESSTANDARD DOSE: 2.0 - 3.0 Includes: PROPHYLAXIS forvenous thrombosis, systemic embolization; TREATMENT for venous thrombosis and/or pulmonary embolus.HIGH RISK: Target INR is 2.5-3.5 for patients with mechanical heart valves.While on warfarin.CBC (HEMOGRAM ONLY) 2018-12-23 07:01:00 Test Item Value Reference Range Comments WHITE BLOOD CELL COUNT (BEAKER) (test code = 775) 4.6 K/ L 3.5-10.5 RED BLOOD CELL COUNT (BEAKER) (test code = 761) 2.49 M/ L 4.63-6.08 HEMOGLOBIN (BEAKER) (test code = 410) 8.2 GM/DL 13.7-17.5 HEMATOCRIT (BEAKER) (test code = 411) 25.8 % 40.1-51.0 MEAN CORPUSCULAR VOLUME (BEAKER) (test code = 103.6 fL 79 .0-92.2 753) MEAN CORPUSCULAR HEMOGLOBIN (BEAKER) (test code = 32.9 pg 25.7-32.2 751) MEAN CORPUSCULAR HEMOGLOBIN CONC (BEAKER) (test 31.8 GM/DL 32.3-36.5 code = 752) RED CELL DISTRIBUTION WIDTH (BEAKER) (test code = 15.0 % 11.6-14.4 412) PLATELET COUNT (BEAKER) (test code = 756) 79 K/CU MM 150-45 0 MEAN PLATELET VOLUME (BEAKER) (test code = 754) 9.6 fL 9.4-12.4 NUCLEATED RED BLOOD CELLS (BEAKER) (test code = 1 /100 WBC 0-0 413) RAD, CHEST, 1 VIEW, NON [id number] 04:22:00Reason for exam:->Post opShould this be performed [...] There is no no definite pneumothorax. Signed: [facility] Verified Date/Time: 12/23/2018 04:22:43 Reading Location: [facility] B1 C013Y CT Body Reading Room POCT-GLUCOSE [id number] 03:01:00 Test Item Value Reference Range Comments POC-GLUCOSE METER (BEAKER) 85 mg/dL 70-110 TESTE D AT [facility] [address] [facility] (test code = 1538) [facility] [address] BASIC METABOLIC [id number] 18:52:00 Test Item Value Reference Range Comments SODIUM (BEAKER) (test 133 meq/L 136-145 code = 381) POTASSIUM (BEAKER) (test 5.2 meq/L 3.5-5.1 Specime n slightly code = 379) hemolyzed CHLORIDE (BEAKER) (test 94 meq/L 98-107 code = 382) CO2 (BEAKER) (test code = 26 meq/L 22-29 355) BLOOD UREA NITROGEN 43 mg/dL 7-21 (BEAKER) (test code = 354) CREATININE (BEAKER) (test 5.20 mg/dL 0.57-1.25 Specim en slightly code = 358) hemolyzed GLUCOSE RANDOM (BEAKER) 66 mg/dL 70-105 (test code = 652) CALCIUM (BEAKER) (test 9.5 mg/dL 8.4-10.2 code = 697) EGFR (BEAKER) (test code 14 mL/min/1.73 sq m EST IMATED GFR IS NOT = 1092) ACCURATE CREA TININE CLEARANCE IN PRE DICTING GLOMERULAR FILTR ATION RATE. ESTIMATED GFR IS NOT APPLICABLE F OR DIALYSIS PATIENT S. CBC (HEMOGRAM ONLY)2018-12-22 17:50:00 Test Item Value Reference Range Comments WHITE BLOOD CELL COUNT (BEAKER) (test code = 4.8 K/ L 3.5 -10.5 775) RED BLOOD CELL COUNT (BEAKER) (test code = 761) 2.88 M/ L 4.63-6.08 HEMOGLOBIN (BEAKER) (test code = 410) 9.4 GM/DL 13.7-17.5 HEMATOCRIT (BEAKER) (test code = 411) 30.2 % 40.1-51.0 MEAN CORPUSCULAR VOLUME (BEAKER) (test code = 104.9 fL 79 .0-92.2 753) MEAN CORPUSCULAR HEMOGLOBIN (BEAKER) (test code 32.6 pg 25.7-32.2 = 751) MEAN CORPUSCULAR HEMOGLOBIN CONC (BEAKER) (test 31.1 GM/DL 32.3-36.5 code = 752) RED CELL DISTRIBUTION WIDTH (BEAKER) (test code 15.1 % 11.6-14.4 = 412) PLATELET COUNT (BEAKER) (test code = 756) 115 K/CU MM 150-45 0 MEAN PLATELET VOLUME (BEAKER) (test code = 754) 9.9 fL 9.4-12.4 NUCLEATED RED BLOOD CELLS (BEAKER) (test code = 1 /100 WBC 0-0 413) ANAEROBIC [id number] 17:00:00 Test Item Value Reference Range Comments CULTURE (BEAKER) (test code = 1095) No anaerobes isolated RAD, CHEST, 1 VIEW, NON [id number] 07:44:00Reason for exam:->Post opShould this be performed at the bedside?->YesFINAL REPORT Chest, one view. HISTORY: Post op COMPARISON: Radiograph from IMPRESSION: Interval removal of a right chest [...] would tell the doctor. Signed: Katherine Arteaga MDRglen Verified Date/Time: 12/22/2018 07:44:12 Reading Location: [facility] Radiology Reading Room PROTHROMBIN [id number] 04:31:00 Test Item Value Reference Range Comments PROTIME (BEAKER) (test code = 759) 63.0 seconds 11.7-14.7 INR (BEAKER) (test code = 370) 7.6 <=5.9 RECOMMENDED COUMADIN/WARFARIN INR THERAPY RANGESSTANDARD DOSE: 2.0 - 3.0 Includes: PROPHYLAXIS forvenous thrombosis, systemic embolization; TREATMENT for venous thrombosis and/or pulmonary embolus.HIGH RISK: Target INR is 2.5-3.5 for patients with mechanical heart valves.While on warfarin.POCT-GLUCOSE METER 2018-12-21 22:29:00 Test Item Value Reference Range Comments POC-GLUCOSE METER (BEAKER) 141 mg/dL 70-110 TESTE D AT [facility] [address] [facility] (test code = 1538) [place] [address] POCT-GLUCOSE [id number] 13:22:00 Test Item Value Reference Range Comments POC-GLUCOSE METER (BEAKER) 100 mg/dL 70-110 TESTE D AT [facility] [address] [facility] (test code = 1538) [place] [address] RAD, CHEST, 1 VIEW, NON [id number] 08:01:00Reason for exam:->Post opShould this be performed at the bedside?->YesFINAL REPORT RAD, CHEST, 1 VIEW, NON DEPT INDICATION: Post op COMPARISON: Prior day's exam FINDINGS: Portable frontal [...] Lisa Verified Date/Time: 12/21/2018 08:01:46 Reading Location: [facility] C013 Neuro Reading Room PROTHROMBIN TIME/[id number] 05:30:00 Test Item Value Reference Range Comments PROTIME (BEAKER) (test code = 759) 39.1 seconds 11.7-14.7 INR (BEAKER) (test code = 370) 4.0 <=5.9 RECOMMENDED COUMADIN/WARFARIN INR THERAPY RANGESSTANDARD DOSE: 2.0 - 3.0 Includes: PROPHYLAXIS forvenous thrombosis, systemic embolization; TREATMENT for venous thrombosis and/or pulmonary embolus.HIGH RISK: Target INR is 2.5-3.5 for patients with mechanical heart valves.While on warfarin.POCT-GLUCOSE METER 2018-12-20 22:10:00 Test Item Value Reference Range Comments POC-GLUCOSE METER (BEAKER) 98 mg/dL 70-110 TESTE D AT [address] (test code = 1538) [place] [address] POCT-GLUCOSE [id number] 17:40:00 Test Item Value Reference Range Comments POC-GLUCOSE METER (BEAKER) 91 mg/dL 70-110 TESTE D AT [address] (test code = 1538) [place] [address] POCT-GLUCOSE [id number] 13:13:00 Test Item Value Reference Range Comments POC-GLUCOSE METER (BEAKER) 73 mg/dL 70-110 TESTE D AT [address] (test code = 1538) [place] [address] SURGICALLY OBTAINED CULTURE + GRAM [id number] 08:41:00 Test Item Value Reference Range Comments CULTURE (BEAKER) (test code = No growth 1095) GRAM STAIN RESULT (BEAKER) (test No White blood cells seen code = 1123) GRAM STAIN RESULT (BEAKER) (test No organisms seen code = 96822) RAD, CHEST, 1 VIEW, NON [id number] 08:20:00Reason for exam:->Post opShould this be performed at the bedside?->YesFINAL REPORT RAD, CHEST, 1 VIEW, NON DEPT INDICATION: Post op COMPARISON: Prior day's exam FINDINGS: Portable frontal view of the chest. IMPRESSION: Support Lines: Right-sidedchest tubes are unchanged. Sternotomy wires are unchanged. Lungs and pleura: Right mid and lower lung airspace disease is unchanged. Left retrocardiac airspace disease is unchanged. Small right apical pneumothorax is unchangedHeart and mediastinum: Stable contours. Stable surgical changes.Additional findings: None. Signed: Radha Lisa MDReport Verified Date/Time: 12/20/2018 08:20:58 Reading Location: [address] Neuro Reading Room BASIC METABOLIC [id number] 08:09:00 Test Item Value Reference Range Comments SODIUM (BEAKER) (test 132 meq/L 136-145 code = 381) POTASSIUM (BEAKER) (test 4.6 meq/L 3.5-5.1 code = 379) CHLORIDE (BEAKER) (test 95 meq/L 98-107 code = 382) CO2 (BEAKER) (test code = 28 meq/L 22-29 355) BLOOD UREA NITROGEN 35 mg/dL 7-21 (BEAKER) (test code = 354) CREATININE (BEAKER) (test 4.94 mg/dL 0.57-1.25 code = 358) GLUCOSE RANDOM (BEAKER) 122 mg/dL 70-105 (test code = 652) CALCIUM (BEAKER) (test 9.2 mg/dL 8.4-10.2 code = 697) EGFR (BEAKER) (test code 15 mL/min/1.73 sq m EST IMATED GFR IS NOT = 1092) ACCURATE CREA TININE CLEARANCE IN PRE DICTING GLOMERULAR FILTR ATION RATE. ESTIMATED GFR IS NOT APPLICABLE F OR DIALYSIS PATIENT S. [id number] 08:00:00 Test Item Value Reference Range Comments PHOSPHORUS (BEAKER) (test code = 604) 4.5 mg/dL 2.3-4.7 CALCIUM, [id number] 07:20:00 Test Item Value Reference Range Comments CALCIUM IONIZED (BEAKER) (test code = 698) 1.04 mmol/L 1.12- 1.27 PH, BLOOD (BEAKER) (test code = 1810) 7.35 PROTHROMBIN [id number] 07:04:00 Test Item Value Reference Range Comments PROTIME (BEAKER) (test code = 759) 21.1 seconds 11.7-14.7 INR (BEAKER) (test code = 370) 1.8 <=5.9 RECOMMENDED COUMADIN/WARFARIN INR THERAPY RANGESSTANDARD DOSE: 2.0 - 3.0 Includes: PROPHYLAXIS forvenous thrombosis, systemic embolization; TREATMENT for venous thrombosis and/or pulmonary embolus.HIGH RISK: Target INR is 2.5-3.5 for patients with mechanical heart valves.While on warfarin.CBC (HEMOGRAM ONLY) 2018-12-20 06:55:00 Test Item Value Reference Range Comments WHITE BLOOD CELL COUNT (BEAKER) (test code = 9.4 K/ L 3.5 -10.5 775) RED BLOOD CELL COUNT (BEAKER) (test code = 761) 2.65 M/ L 4.63-6.08 HEMOGLOBIN (BEAKER) (test code = 410) 8.8 GM/DL 13.7-17.5 HEMATOCRIT (BEAKER) (test code = 411) 27.5 % 40.1-51.0 MEAN CORPUSCULAR VOLUME (BEAKER) (test code = 103.8 fL 79 .0-92.2 753) MEAN CORPUSCULAR HEMOGLOBIN (BEAKER) (test code 33.2 pg 25.7-32.2 = 751) MEAN CORPUSCULAR HEMOGLOBIN CONC (BEAKER) (test 32.0 GM/DL 32.3-36.5 code = 752) RED CELL DISTRIBUTION WIDTH (BEAKER) (test code 15.4 % 11.6-14.4 = 412) PLATELET COUNT (BEAKER) (test code = 756) 118 K/CU MM 150-45 0 MEAN PLATELET VOLUME (BEAKER) (test code = 754) 9.7 fL 9.4-12.4 NUCLEATED RED BLOOD CELLS (BEAKER) (test code = 0 /100 WBC 0-0 413) POCT-GLUCOSE [id number] 22:00:00 Test Item Value Reference Range Comments POC-GLUCOSE METER (BEAKER) 188 mg/dL 70-110 TESTE D AT [address] (test code = 1538) [place] [address] TISSUE [id number] 18:15:00Surgical Pathology Report Case: [id number] Authorizing Provider: Moiz Vargas, Collected: 12/17/2018 0950 Ordering Location: [facility] Received: 12/17/2018 1129 PERIOPERATIVE SERVICES Pathologist: Kwan Perla MD Specimen: Pleural, Right, RIGHT PLEURAL PEEL PLEURA, RIGHT, DECORTICATION- MILD CHRONIC INFLAMMATION AND GRANULATION TISSUE- ORGANIZING BLOOD CLOTS- NO MALIGNANT CELLS IDENTIFIED Signing Pathologist Direct Phone Line: [phone] signed by Kwan Perla MD on 12/19/2018 at 6:15 PMCorrelation with microbiology cultures is recommended.[id number] effusion and other conditions classified elsewhereRight pleural peelThe specimen is received in a formalin-filled container labeled with the patient's information and labeled "right pleural peel" and consists of multiple fragments of porter-red, dusky, firm tissue measuring 6 x 5 x 0.4 cm in aggregate. Broommaking Supervisor sections are submitted in A1-A3. CG/ew Performed.POCT-GLUCOSE [id number] 17:11:00 Test Item Value Reference Range Comments POC-GLUCOSE METER (BEAKER) 126 mg/dL 70-110 TESTE D AT [address] (test code = 1538) [place] [address] POCT-GLUCOSE [id number] 12:57:00 Test Item Value Reference Range Comments POC-GLUCOSE METER (BEAKER) 143 mg/dL 70-110 TESTE D AT [address] (test code = 1538) [place] [address] POCT-GLUCOSE [id number] 07:27:00 Test Item Value Reference Range Comments POC-GLUCOSE METER (BEAKER) 141 mg/dL 70-110 TESTE D AT [address] (test code = 1538) [place] [address] CALCIUM, [id number] 06:29:00 Test Item Value Reference Range Comments CALCIUM IONIZED (BEAKER) (test code = 698) 1.00 mmol/L 1.12- 1.27 PH, BLOOD (BEAKER) (test code = 1810) 7.45 RAD, CHEST, 1 VIEW, NON [id number] 04:54:00Reason for exam:->Post opShould this be performed [...] pleural effusion. There are persistent bibasilar airspace opacities, right greater than left.The cardiomediastinal contours are stable. 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 There are median sternotomy wires. Signed: Raz Taylor Verified Date/Time: 2018 04:54:49 Reading Location: [facility] C013Y CT Body Reading Room BASIC METABOLIC [id number] 04:19:00 Test Item Value Reference Range Comments SODIUM (BEAKER) (test 132 meq/L 136-145 code = 381) POTASSIUM (BEAKER) (test 4.0 meq/L 3.5-5.1 code = 379) CHLORIDE (BEAKER) (test 96 meq/L 98-107 code = 382) CO2 (BEAKER) (test code = 28 meq/L 22-29 355) BLOOD UREA NITROGEN 18 mg/dL 7-21 (BEAKER) (test code = 354) CREATININE (BEAKER) (test 3.49 mg/dL 0.57-1.25 code = 358) GLUCOSE RANDOM (BEAKER) 139 mg/dL 70-105 (test code = 652) CALCIUM (BEAKER) (test 8.9 mg/dL 8.4-10.2 code = 697) EGFR (BEAKER) (test code 22 mL/min/1.73 sq m EST IMATED GFR IS NOT = 1092) ACCURATE CREA TININE CLEARANCE IN PRE DICTING GLOMERULAR FILTR ATION RATE. ESTIMATED GFR IS NOT APPLICABLE F OR DIALYSIS PATIENT S. [id number] 04:16:00 Test Item Value Reference Range Comments PHOSPHORUS (BEAKER) (test code = 604) 3.4 mg/dL 2.3-4.7 PROTHROMBIN [id number] 04:06:00 Test Item Value Reference Range Comments PROTIME (BEAKER) (test code = 759) 20.9 seconds 11.7-14.7 INR (BEAKER) (test code = 370) 1.8 <=5.9 RECOMMENDED COUMADIN/WARFARIN INR THERAPY RANGESSTANDARD DOSE: 2.0 - 3.0 Includes: PROPHYLAXIS forvenous thrombosis, systemic embolization; TREATMENT for venous thrombosis and/or pulmonary embolus.HIGH RISK: Target INR is 2.5-3.5 for patients with mechanical heart valves.CBC (HEMOGRAM ONLY)2018-12-19 03:56:00 Test Item Value Reference Range Comments WHITE BLOOD CELL COUNT (BEAKER) (test code = 9.7 K/ L 3.5 -10.5 775) RED BLOOD CELL COUNT (BEAKER) (test code = 761) 2.56 M/ L 4.63-6.08 HEMOGLOBIN (BEAKER) (test code = 410) 8.5 GM/DL 13.7-17.5 HEMATOCRIT (BEAKER) (test code = 411) 26.3 % 40.1-51.0 MEAN CORPUSCULAR VOLUME (BEAKER) (test code = 102.7 fL 79 .0-92.2 753) MEAN CORPUSCULAR HEMOGLOBIN (BEAKER) (test code 33.2 pg 25.7-32.2 = 751) MEAN CORPUSCULAR HEMOGLOBIN CONC (BEAKER) (test 32.3 GM/DL 32.3-36.5 code = 752) RED CELL DISTRIBUTION WIDTH (BEAKER) (test code 15.7 % 11.6-14.4 = 412) PLATELET COUNT (BEAKER) (test code = 756) 114 K/CU MM 150-45 0 MEAN PLATELET VOLUME (BEAKER) (test code = 754) 9.8 fL 9.4-12.4 NUCLEATED RED BLOOD CELLS (BEAKER) (test code = 0 /100 WBC 0-0 413) POCT-GLUCOSE [id number] 22:11:00 Test Item Value Reference Range Comments POC-GLUCOSE METER (BEAKER) 149 mg/dL 70-110 TESTE D AT [address] (test code = 1538) [place] [id number] POCT-GLUCOSE [id number] 17:52:00 Test Item Value Reference Range Comments POC-GLUCOSE METER (BEAKER) 122 mg/dL 70-110 TESTE D AT [address] (test code = 1538) [place] [id number] POCT-GLUCOSE [id number] 14:26:00 Test Item Value Reference Range Comments POC-GLUCOSE METER (BEAKER) 98 mg/dL 70-110 TESTE D AT [address] (test code = 1538) [place] [id number] HEMOGLOBIN AND [id number] 12:47:00 Test Item Value Reference Range Comments HEMOGLOBIN (BEAKER) (test code = 410) 9.2 GM/DL 13.7-17.5 HEMATOCRIT (BEAKER) (test code = 411) 28.3 % 40.1-51.0 POCT-GLUCOSE [id number] 09:38:00 Test Item Value Reference Range Comments POC-GLUCOSE METER (BEAKER) 73 mg/dL 70-110 TESTE D AT [address] (test code = 1538) [place] [address]30 PROTEIN ELECTROPHORESIS, [id number] 09:21:00 Test Item Value Reference Range Comments ALBUMIN FRACTION (BEAKER) 3.2 g/dL 3.5-5.5 (test code = 405) ALPHA 1 FRACTION (BEAKER) 0.4 g/dL 0.2-0.4 (test code = 389) ALPHA 2 FRACTION (BEAKER) 0.6 g/dL 0.5-0.9 (test code = 390) BETA FRACTION (BEAKER) (test 1.1 g/dL 0.6-1.1 code = 392) GAMMA GLOBULIN FRACTION 2.2 g/dL 0.7-1.7 (BEAKER) (test code = 391) INTERPRETATION-119 (BEAKER) Mild polyclonal elevation of (test code = 2615) gamma fraction, suggesting component of chronic inflammation. No monoclonal bands detected. [id number] (BEAKER) Amanda De Jesus MD (test code = 2616) (electronic signature) PROTEIN TOTAL SERUM, SPEP 7.5 gm/dL 6.0-8.3 (BEAKER) (test code = 2660) RAD, CHEST, 1 VIEW, NON [id number] 06:47:00Reason for exam:->Post opShould this be performed [...] MDReport Verified Date/Time: 12/18/2018 06:47:21 Reading Location: [facility] B1 C013Y CT Body Reading Room [id number] 06:20:00 Test Item Value Reference Range Comments MAGNESIUM (BEAKER) (test code = 627) 2.2 mg/dL 1.6-2.6 CALCIUM, [id number] 06:00:00 Test Item Value Reference Range Comments CALCIUM IONIZED (BEAKER) (test code = 698) 1.09 mmol/L 1.12- 1.27 PH, BLOOD (BEAKER) (test code = 1810) 7.34 BASIC METABOLIC [id number] 05:07:00 Test Item Value Reference Range Comments SODIUM (BEAKER) (test 136 meq/L 136-145 code = 381) POTASSIUM (BEAKER) (test 5.0 meq/L 3.5-5.1 code = 379) CHLORIDE (BEAKER) (test 100 meq/L 98-107 code = 382) CO2 (BEAKER) (test code = 25 meq/L 22-29 355) BLOOD UREA NITROGEN 34 mg/dL 7-21 (BEAKER) (test code = 354) CREATININE (BEAKER) (test 6.00 mg/dL 0.57-1.25 code = 358) GLUCOSE RANDOM (BEAKER) 91 mg/dL 70-105 (test code = 652) CALCIUM (BEAKER) (test 9.1 mg/dL 8.4-10.2 code = 697) EGFR (BEAKER) (test code 12 mL/min/1.73 sq m EST IMATED GFR IS NOT = 1092) ACCURATE CREA TININE CLEARANCE IN PRE DICTING GLOMERULAR FILTR ATION RATE. ESTIMATED GFR IS NOT APPLICABLE F OR DIALYSIS PATIENT S. [id number] 04:54:00 Test Item Value Reference Range Comments PHOSPHORUS (BEAKER) (test code = 604) 6.3 mg/dL 2.3-4.7 HEPATIC FUNCTION [id number] 04:54:00 Test Item Value Reference Range Comments TOTAL PROTEIN (BEAKER) (test code = 770) 6.8 gm/dL 6.0-8.3 ALBUMIN (BEAKER) (test code = 1145) 3.1 g/dL 3.5-5.0 BILIRUBIN TOTAL (BEAKER) (test code = 377) 1.0 mg/dL 0.2-1 .2 BILIRUBIN DIRECT (BEAKER) (test code = 706) 0.8 mg/dL 0.1- 0.5 ALKALINE PHOSPHATASE (BEAKER) (test code = 346) 58 U/L 40-150 AST (SGOT) (BEAKER) (test code = 353) 29 U/L 5-34 ALT (SGPT) (BEAKER) (test code = 347) 23 U/L 6-55 [id number] 04:51:00 Test Item Value Reference Range Comments PARTIAL THROMBOPLASTIN TIME (BEAKER) (test code 38.6 seconds 22.5-36.0 = 760) PROTHROMBIN [id number] 04:50:00 Test Item Value Reference Range Comments PROTIME (BEAKER) (test code = 759) 16.0 seconds 11.7-14.7 INR (BEAKER) (test code = 370) 1.3 <=5.9 RECOMMENDED COUMADIN/WARFARIN INR THERAPY RANGESSTANDARD DOSE: 2.0 - 3.0 Includes: PROPHYLAXIS forvenous thrombosis, systemic embolization; TREATMENT for venous thrombosis and/or pulmonary embolus.HIGH RISK: Target INR is 2.5-3.5 for patients with mechanical heart valves.[id number] 04:50:00 Test Item Value Reference Range Comments FIBRINOGEN LEVEL (BEAKER) (test code = 658) 494 mg/dl 225- 434 PLATELET [id number] 04:38:00 Test Item Value Reference Range Comments PLATELET COUNT (BEAKER) (test code = 756) 112 K/CU MM 150-45 0 CBC (HEMOGRAM ONLY)2018-12-18 04:38:00 Test Item Value Reference Range Comments WHITE BLOOD CELL COUNT (BEAKER) (test code = 8.8 K/ L 3.5 -10.5 775) RED BLOOD CELL COUNT (BEAKER) (test code = 761) 2.82 M/ L 4.63-6.08 HEMOGLOBIN (BEAKER) (test code = 410) 9.2 GM/DL 13.7-17.5 HEMATOCRIT (BEAKER) (test code = 411) 29.0 % 40.1-51.0 MEAN CORPUSCULAR VOLUME (BEAKER) (test code = 102.8 fL 79 .0-92.2 753) MEAN CORPUSCULAR HEMOGLOBIN (BEAKER) (test code 32.6 pg 25.7-32.2 = 751) MEAN CORPUSCULAR HEMOGLOBIN CONC (BEAKER) (test 31.7 GM/DL 32.3-36.5 code = 752) RED CELL DISTRIBUTION WIDTH (BEAKER) (test code 16.2 % 11.6-14.4 = 412) PLATELET COUNT (BEAKER) (test code = 756) 112 K/CU MM 150-45 0 MEAN PLATELET VOLUME (BEAKER) (test code = 754) 9.4 fL 9.4-12.4 NUCLEATED RED BLOOD CELLS (BEAKER) (test code = 0 /100 WBC 0-0 413) [id number] 18:48:00 Test Item Value Reference Range Comments MAGNESIUM (BEAKER) (test code = 627) 2.4 mg/dL 1.6-2.6 POCT-GLUCOSE [id number] 18:42:00 Test Item Value Reference Range Comments POC-GLUCOSE METER (BEAKER) 121 mg/dL 70-110 TESTE D AT [facility] [address] (test code = 1538) [place] [address] HEMOGLOBIN AND [id number] 18:37:00 Test Item Value Reference Range Comments HEMOGLOBIN (BEAKER) (test code = 410) 10.0 GM/DL 13.7-17.5 HEMATOCRIT (BEAKER) (test code = 411) 31.3 % 40.1-51.0 RAD, CHEST, 1 VIEW, NON [id number] 13:28:00Reason for exam:->post opShould this be performed [...] Signed: Mandy Chairez MDReport Verified Date/Time: 12/17/2018 13:28:23 Reading Location: [facility] Reading Room BASI METABOLIC [id number] 13:03:00 Test Item Value Reference Range Comments SODIUM (BEAKER) (test 138 meq/L 136-145 code = 381) POTASSIUM (BEAKER) (test 4.2 meq/L 3.5-5.1 code = 379) CHLORIDE (BEAKER) (test 103 meq/L 98-107 code = 382) CO2 (BEAKER) (test code = 27 meq/L 22-29 355) BLOOD UREA NITROGEN 28 mg/dL 7-21 (BEAKER) (test code = 354) CREATININE (BEAKER) (test 4.75 mg/dL 0.57-1.25 code = 358) GLUCOSE RANDOM (BEAKER) 118 mg/dL 70-105 (test code = 652) CALCIUM (BEAKER) (test 8.3 mg/dL 8.4-10.2 code = 697) EGFR (BEAKER) (test code 15 mL/min/1.73 sq m EST IMATED GFR IS NOT = 1092) ACCURATE CREA TININE CLEARANCE IN PRE DICTING GLOMERULAR FILTR ATION RATE. ESTIMATED GFR IS NOT APPLICABLE F OR DIALYSIS PATIENT S. [id number] 12:53:00 Test Item Value Reference Range Comments PHOSPHORUS (BEAKER) (test code = 604) 4.3 mg/dL 2.3-4.7 [id number] 12:53:00 Test Item Value Reference Range Comments MAGNESIUM (BEAKER) (test code = 627) 1.5 mg/dL 1.6-2.6 LACTIC ACID, [id number] 12:50:00 Test Item Value Reference Range Comments LACTATE BLOOD ARTERIAL (2) (BEAKER) (test code = 0.9 mmol/L 0.5-2.2 2874) CBC W/PLT COUNT & AUTO [id number] 12:47:00 Test Item Value Reference Range Comments WHITE BLOOD CELL COUNT (BEAKER) (test code = 5.0 K/ L 3.5 -10.5 775) RED BLOOD CELL COUNT (BEAKER) (test code = 761) 2.22 M/ L 4.63-6.08 HEMOGLOBIN (BEAKER) (test code = 410) 7.5 GM/DL 13.7-17.5 HEMATOCRIT (BEAKER) (test code = 411) 23.4 % 40.1-51.0 MEAN CORPUSCULAR VOLUME (BEAKER) (test code = 105.4 fL 79 .0-92.2 753) MEAN CORPUSCULAR HEMOGLOBIN (BEAKER) (test code 33.8 pg 25.7-32.2 = 751) MEAN CORPUSCULAR HEMOGLOBIN CONC (BEAKER) (test 32.1 GM/DL 32.3-36.5 code = 752) RED CELL DISTRIBUTION WIDTH (BEAKER) (test code 14.5 % 11.6-14.4 = 412) PLATELET COUNT (BEAKER) (test code = 756) 127 K/CU MM 150-45 0 MEAN PLATELET VOLUME (BEAKER) (test code = 754) 9.8 fL 9.4-12.4 NUCLEATED RED BLOOD CELLS (BEAKER) (test code = 0 /100 WBC 0-0 413) NEUTROPHILS RELATIVE PERCENT (BEAKER) (test code 73 % = 429) LYMPHOCYTES RELATIVE PERCENT (BEAKER) (test code 15 % = 430) MONOCYTES RELATIVE PERCENT (BEAKER) (test code = 10 % 431) EOSINOPHILS RELATIVE PERCENT (BEAKER) (test code 1 % = 432) BASOPHILS RELATIVE PERCENT (BEAKER) (test code = 0 % 437) NEUTROPHILS ABSOLUTE COUNT (BEAKER) (test code = 3.65 K/ L 1.78-5.38 670) LYMPHOCYTES ABSOLUTE COUNT (BEAKER) (test code = 0.73 K/ L 1.32-3.57 414) MONOCYTES ABSOLUTE COUNT (BEAKER) (test code = 0.50 K/ L 0 .30-0.82 415) EOSINOPHILS ABSOLUTE COUNT (BEAKER) (test code = 0.04 K/ L 0.04-0.54 416) BASOPHILS ABSOLUTE COUNT (BEAKER) (test code = 0.02 K/ L 0 .01-0.08 417) IMMATURE GRANULOCYTES-RELATIVE PERCENT (BEAKER) 1 % 0-1 (test code = 2801) CALCIUM, [id number] 12:26:00 Test Item Value Reference Range Comments CALCIUM IONIZED (BEAKER) (test code = 698) 1.07 mmol/L 1.12- 1.27 PH, BLOOD (BEAKER) (test code = 1810) 7.38 BLOOD GAS, [id number] 12:26:00 Test Item Value Reference Range Comments PH ARTERIAL (BEAKER) (test code = 383) 7.39 7.35-7.45 PCO2 ARTERIAL (BEAKER) (test code = 384) 46 mmHg 35-45 PO2 ARTERIAL (BEAKER) (test code = 385) 289 mmHg 80-90 O2 SATURATION ARTERIAL (BEAKER) (test code = 386) 99.7 % 96.0-97.0 HCO3 ARTERIAL (BEAKER) (test code = 388) 27 mmol/L 21-29 BASE EXCESS ARTERIAL (BEAKER) (test code = 387) 1.4 mmol/L -2.0-3.0 PATIENT TEMPERATURE (BEAKER) (test code = 1818) 36.8 C FIO2 (BEAKER) (test code = 1819) 40.0 % CALCIUM, [id number] 10:25:00 Test Item Value Reference Range Comments CALCIUM IONIZED (BEAKER) (test code = 698) 1.09 mmol/L 1.12- 1.27 PH, BLOOD (BEAKER) (test code = 1810) 7.45 BLOOD GAS, [id number] 10:22:00 Test Item Value Reference Range Comments PH ARTERIAL (BEAKER) (test code = 383) 7.48 7.35-7.45 PCO2 ARTERIAL (BEAKER) (test code = 384) 34 mmHg 35-45 PO2 ARTERIAL (BEAKER) (test code = 385) 391 mmHg 80-90 O2 SATURATION ARTERIAL (BEAKER) (test code = 386) 99.8 % 96.0-97.0 HCO3 ARTERIAL (BEAKER) (test code = 388) 26 mmol/L 21-29 BASE EXCESS ARTERIAL (BEAKER) (test code = 387) 1.6 mmol/L -2.0-3.0 PATIENT TEMPERATURE (BEAKER) (test code = 1818) 34.9 C FIO2 (BEAKER) (test code = 1819) 96.0 % SODIUM NA-STAT [id number] 10:22:00 Test Item Value Reference Range Comments SODIUM (BEAKER) (test code = 381) 133 meq/L 135-148 GLUCOSE-STAT [id number] 10:22:00 Test Item Value Reference Range Comments GLUCOSE RANDOM (BEAKER) (test code = 652) 116 mg/dL 70-110 HGB/HCT (H&H) - STAT [id number] 10:22:00 Test Item Value Reference Range Comments HEMOGLOBIN (BEAKER) (test code = 410) 8.9 g/dL 13.0-16.8 HEMATOCRIT (BEAKER) (test code = 411) 26.0 % 40.0-50.0 POTASSIUM-STAT [id number] 10:20:00 Test Item Value Reference Range Comments POTASSIUM (BEAKER) (test code = 379) 4.0 meq/L 3.6-5.5 HEMOGLOBIN [id number] 09:33:00 Test Item Value Reference Range Comments HEMOGLOBIN A1C (BEAKER) (test code = 368) 5.9 % 4.3-6. 1 BLOOD GAS, [id number] 09:27:00 Test Item Value Reference Range Comments PH ARTERIAL (BEAKER) (test code = 383) 7.44 7.35-7.45 PCO2 ARTERIAL (BEAKER) (test code = 384) 42 mmHg 35-45 PO2 ARTERIAL (BEAKER) (test code = 385) 262 mmHg 80-90 O2 SATURATION ARTERIAL (BEAKER) (test code = 386) 99.6 % 96.0-97.0 HCO3 ARTERIAL (BEAKER) (test code = 388) 28 mmol/L 21-29 BASE EXCESS ARTERIAL (BEAKER) (test code = 387) 3.0 mmol/L -2.0-3.0 PATIENT TEMPERATURE (BEAKER) (test code = 1818) 37.0 C FIO2 (BEAKER) (test code = 1819) 100.0 % SODIUM NA-STAT [id number] 09:27:00 Test Item Value Reference Range Comments SODIUM (BEAKER) (test code = 381) 133 meq/L 135-148 HGB/HCT (H&H) - STAT [id number] 09:27:00 Test Item Value Reference Range Comments HEMOGLOBIN (BEAKER) (test code = 410) 9.4 g/dL 13.0-16.8 HEMATOCRIT (BEAKER) (test code = 411) 28.0 % 40.0-50.0 GLUCOSE-STAT [id number] 09:26:00 Test Item Value Reference Range Comments GLUCOSE RANDOM (BEAKER) (test code = 652) 97 mg/dL 70-110 POTASSIUM-STAT [id number] 09:26:00 Test Item Value Reference Range Comments POTASSIUM (BEAKER) (test code = 379) 3.9 meq/L 3.6-5.5 CALCIUM, [id number] 09:26:00 Test Item Value Reference Range Comments CALCIUM IONIZED (BEAKER) (test code = 698) 1.17 mmol/L 1.12- 1.27 PH, BLOOD (BEAKER) (test code = 1810) 7.44 BLOOD GAS, [id number] 08:32:00 Test Item Value Reference Range Comments PH ARTERIAL (BEAKER) (test code = 383) 7.52 7.35-7.45 PCO2 ARTERIAL (BEAKER) (test code = 384) 34 mmHg 35-45 PO2 ARTERIAL (BEAKER) (test code = 385) 310 mmHg 80-90 O2 SATURATION ARTERIAL (BEAKER) (test code = 386) 99.8 % 96.0-97.0 HCO3 ARTERIAL (BEAKER) (test code = 388) 28 mmol/L 21-29 BASE EXCESS ARTERIAL (BEAKER) (test code = 387) 4.2 mmol/L -2.0-3.0 PATIENT TEMPERATURE (BEAKER) (test code = 1818) 35.4 C FIO2 (BEAKER) (test code = 1819) 96.0 % SODIUM NA-STAT [id number] 08:32:00 Test Item Value Reference Range Comments SODIUM (BEAKER) (test code = 381) 133 meq/L 135-148 GLUCOSE-STAT [id number] 08:32:00 Test Item Value Reference Range Comments GLUCOSE RANDOM (BEAKER) (test code = 652) 113 mg/dL 70-110 HGB/HCT (H&H) - STAT [id number] 08:32:00 Test Item Value Reference Range Comments HEMOGLOBIN (BEAKER) (test code = 410) 9.9 g/dL 13.0-16.8 HEMATOCRIT (BEAKER) (test code = 411) 29.0 % 40.0-50.0 CALCIUM, [id number] 08:31:00 Test Item Value Reference Range Comments CALCIUM IONIZED (BEAKER) (test code = 698) 1.05 mmol/L 1.12- 1.27 PH, BLOOD (BEAKER) (test code = 1810) 7.49 POTASSIUM-STAT [id number] 08:29:00 Test Item Value Reference Range Comments POTASSIUM (BEAKER) (test code = 379) 3.6 meq/L 3.6-5.5 POCT-GLUCOSE [id number] 06:20:00 Test Item Value Reference Range Comments POC-GLUCOSE METER (BEAKER) 99 mg/dL 70-110 TESTE D AT [facility] [address] (test code = 1538) [place] [address] [id number] 05:05:00 Test Item Value Reference Range Comments PARTIAL THROMBOPLASTIN TIME (BEAKER) (test code 75.6 seconds 22.5-36.0 = 760) LIPID [id number] 05:04:00 Test Item Value Reference Range Comments TRIGLYCERIDES (BEAKER) (test code = 540) 53 mg/dL CHOLESTEROL (BEAKER) (test code = 631) 122 mg/dL HDL CHOLESTEROL (BEAKER) (test code = 976) 58 mg/dL LDL CHOLESTEROL CALCULATED (BEAKER) (test code = 53 mg/dL 633) Triglyceride Reference Range: Low Risk <150 Borderline 150-199 High Risk 200-499 Very High Risk >=500Cholesterol Reference Range: Low Risk <200 Borderline 200-239 High Risk >240HDL Cholesterol Reference Range: Low Risk >=60 High Risk <40LDL Cholesterol Reference Range: Optimal <100 Near Optimal 100-129 Borderline 130-159 High 160-189 Very High >=190PROTHROMBIN [id number] 05:03:00 Test Item Value Reference Range Comments PROTIME (BEAKER) (test code = 759) 15.4 seconds 11.7-14.7 INR (BEAKER) (test code = 370) 1.2 <=5.9 RECOMMENDED COUMADIN/WARFARIN INR THERAPY RANGESSTANDARD DOSE: 2.0 - 3.0 Includes: PROPHYLAXIS forvenous thrombosis, systemic embolization; TREATMENT for venous thrombosis and/or pulmonary embolus.HIGH RISK: Target INR is 2.5-3.5 for patients with mechanical heart valves.POCT-GLUCOSE [id number] 21:17:00 Test Item Value Reference Range Comments POC-GLUCOSE METER (BEAKER) 223 mg/dL 70-110 TESTE D AT [facility] [address] (test code = 1538) [facility] [address] COMPREHENSIVE METABOLIC [id number] 18:57:00 Test Item Value Reference Range Comments TOTAL PROTEIN (BEAKER) 7.8 gm/dL 6.0-8.3 (test code = 770) ALBUMIN (BEAKER) (test 3.1 g/dL 3.5-5.0 code = 1145) ALKALINE PHOSPHATASE 80 U/L 40-150 (BEAKER) (test code = 346) BILIRUBIN TOTAL (BEAKER) 0.9 mg/dL 0.2-1.2 (test code = 377) SODIUM (BEAKER) (test code 136 meq/L 136-145 = 381) POTASSIUM (BEAKER) (test 3.9 meq/L 3.5-5.1 code = 379) CHLORIDE (BEAKER) (test 98 meq/L 98-107 code = 382) CO2 (BEAKER) (test code = 30 meq/L 22-29 355) BLOOD UREA NITROGEN 19 mg/dL 7-21 (BEAKER) (test code = 354) CREATININE (BEAKER) (test 3.98 mg/dL 0.57-1.25 code = 358) GLUCOSE RANDOM (BEAKER) 159 mg/dL 70-105 (test code = 652) CALCIUM (BEAKER) (test 8.9 mg/dL 8.4-10.2 code = 697) AST (SGOT) (BEAKER) (test 25 U/L 5-34 code = 353) ALT (SGPT) (BEAKER) (test 28 U/L 6-55 code = 347) EGFR (BEAKER) (test code = 19 mL/min/1.73 sq m E STIMATED GFR IS NOT 1092) ACCURATE CREA TININE CLEARANCE IN PRE DICTING GLOMERULAR FILTR ATION RATE. ESTIMATED GFR IS NOT APPLICABLE F OR DIALYSIS PATIENT S. [id number] 18:46:00 Test Item Value Reference Range Comments MAGNESIUM (BEAKER) (test code = 627) 1.8 mg/dL 1.6-2.6 CBC W/PLT COUNT & AUTO [id number] 18:10:00 Test Item Value Reference Range Comments WHITE BLOOD CELL COUNT (BEAKER) (test code = 775) 6.2 K/ L 3.5-10.5 RED BLOOD CELL COUNT (BEAKER) (test code = 761) 3.32 M/ L 4.63-6.08 HEMOGLOBIN (BEAKER) (test code = 410) 11.0 GM/DL 13.7-17.5 HEMATOCRIT (BEAKER) (test code = 411) 34.4 % 40.1-51.0 MEAN CORPUSCULAR VOLUME (BEAKER) (test code = 103.6 fL 79 .0-92.2 753) MEAN CORPUSCULAR HEMOGLOBIN (BEAKER) (test code = 33.1 pg 25.7-32.2 751) MEAN CORPUSCULAR HEMOGLOBIN CONC (BEAKER) (test 32.0 GM/DL 32.3-36.5 code = 752) RED CELL DISTRIBUTION WIDTH (BEAKER) (test code = 14.9 % 11.6-14.4 412) PLATELET COUNT (BEAKER) (test code = 756) 77 K/CU MM 150-45 0 MEAN PLATELET VOLUME (BEAKER) (test code = 754) 10.2 fL 9.4-12.4 NUCLEATED RED BLOOD CELLS (BEAKER) (test code = 0 /100 WBC 0-0 413) NEUTROPHILS RELATIVE PERCENT (BEAKER) (test code 71 % = 429) LYMPHOCYTES RELATIVE PERCENT (BEAKER) (test code 13 % = 430) MONOCYTES RELATIVE PERCENT (BEAKER) (test code = 14 % 431) EOSINOPHILS RELATIVE PERCENT (BEAKER) (test code 1 % = 432) BASOPHILS RELATIVE PERCENT (BEAKER) (test code = 1 % 437) NEUTROPHILS ABSOLUTE COUNT (BEAKER) (test code = 4.39 K/ L 1.78-5.38 670) LYMPHOCYTES ABSOLUTE COUNT (BEAKER) (test code = 0.82 K/ L 1.32-3.57 414) MONOCYTES ABSOLUTE COUNT (BEAKER) (test code = 0.84 K/ L 0 .30-0.82 415) EOSINOPHILS ABSOLUTE COUNT (BEAKER) (test code = 0.05 K/ L 0.04-0.54 416) BASOPHILS ABSOLUTE COUNT (BEAKER) (test code = 0.03 K/ L 0 .01-0.08 417) IMMATURE GRANULOCYTES-RELATIVE PERCENT (BEAKER) 1 % 0-1 (test code = 2801) POCT-GLUCOSE [id number] 17:34:00 Test Item Value Reference Range Comments POC-GLUCOSE METER (BEAKER) 169 mg/dL 70-110 TESTE D AT [facility] [address] (test code = 1538) [place] [address] HEPARIN [id number] 13:40:00 Test Item Value Reference Range Comments HEPARIN ANTIBODY (BEAKER) (test code = 646) Negative Nega tive HEPARIN ANTIBODY OD (BEAKER) (test code = 1209) 0.105 <0.400 4T TOTAL SCORE (BEAKER) (test code = 2661) 4 Probability of HIT based on scoring system: 6-8 = High probability; 4-5 = intermediate probability;0-3 = low probabilityPOCT-GLUCOSE [id number] 12:51:00 Test Item Value Reference Range Comments POC-GLUCOSE METER (BEAKER) 66 mg/dL 70-110 Notif chester COMBS MD/TESTED AT [facility] (test code = 1538) [address] [id number] POCT-GLUCOSE [id number] 07:54:00 Test Item Value Reference Range Comments POC-GLUCOSE METER (BEAKER) 75 mg/dL 70-110 TESTE D AT [address] (test code = 1538) [facility] [address] [id number] 04:21:00 Test Item Value Reference Range Comments PROTIME (BEAKER) (test code = 759) 15.4 seconds 11.7-14.7 INR (BEAKER) (test code = 370) 1.2 <=5.9 PARTIAL THROMBOPLASTIN TIME (BEAKER) (test code 74.0 seconds 22.5-36.0 = 760) RECOMMENDED COUMADIN/WARFARIN INR THERAPY RANGESSTANDARD DOSE: 2.0 - 3.0 Includes: PROPHYLAXIS forvenous thrombosis, systemic embolization; TREATMENT for venous thrombosis and/or pulmonary embolus.HIGH RISK: Target INR is 2.5-3.5 for patients with mechanical heart valves.[id number] 04:20:00 Test Item Value Reference Range Comments FIBRINOGEN LEVEL (BEAKER) (test code = 658) 525 mg/dl 225- 434 POCT-GLUCOSE [id number] 21:25:00 Test Item Value Reference Range Comments POC-GLUCOSE METER (BEAKER) 129 mg/dL 70-110 TESTE D AT [address] (test code = 1538) [facility] [address] [id number] 18:23:00 Test Item Value Reference Range Comments PARTIAL THROMBOPLASTIN TIME (BEAKER) (test code 72.0 seconds 22.5-36.0 = 760) POCT-GLUCOSE [id number] 16:20:00 Test Item Value Reference Range Comments POC-GLUCOSE METER (BEAKER) 142 mg/dL 70-110 TESTE D AT [address] (test code = 1538) [facility] [phone] POCT-GLUCOSE [id number] 13:05:00 Test Item Value Reference Range Comments POC-GLUCOSE METER (BEAKER) 86 mg/dL 70-110 TESTE D AT [facility] [address] [facility] (test code = 1538) [facility] 77 [address]30 [id number] 11:19:00 Test Item Value Reference Range Comments PARTIAL THROMBOPLASTIN TIME (BEAKER) (test code 72.3 seconds 22.5-36.0 = 760) POCT-GLUCOSE [id number] 07:56:00 Test Item Value Reference Range Comments POC-GLUCOSE METER (BEAKER) 87 mg/dL 70-110 TESTE D AT [facility] [address] [facility] (test code = 1538) [facility] [phone] [id number] 03:13:00 Test Item Value Reference Range Comments PARTIAL THROMBOPLASTIN TIME (BEAKER) (test code 97.1 seconds 22.5-36.0 = 760) PROTHROMBIN [id number] 03:11:00 Test Item Value Reference Range Comments PROTIME (BEAKER) (test code = 759) 16.5 seconds 11.7-14.7 INR (BEAKER) (test code = 370) 1.3 <=5.9 RECOMMENDED COUMADIN/WARFARIN INR THERAPY RANGESSTANDARD DOSE: 2.0 - 3.0 Includes: PROPHYLAXIS forvenous thrombosis, systemic embolization; TREATMENT for venous thrombosis and/or pulmonary embolus.HIGH RISK: Target INR is 2.5-3.5 for patients with mechanical heart valves.CBC (HEMOGRAM ONLY)2018-12-15 02:42:00 Test Item Value Reference Range Comments WHITE BLOOD CELL COUNT (BEAKER) (test code = 775) 6.9 K/ L 3.5-10.5 RED BLOOD CELL COUNT (BEAKER) (test code = 761) 3.13 M/ L 4.63-6.08 HEMOGLOBIN (BEAKER) (test code = 410) 10.6 GM/DL 13.7-17.5 HEMATOCRIT (BEAKER) (test code = 411) 32.4 % 40.1-51.0 MEAN CORPUSCULAR VOLUME (BEAKER) (test code = 103.5 fL 79 .0-92.2 753) MEAN CORPUSCULAR HEMOGLOBIN (BEAKER) (test code = 33.9 pg 25.7-32.2 751) MEAN CORPUSCULAR HEMOGLOBIN CONC (BEAKER) (test 32.7 GM/DL 32.3-36.5 code = 752) RED CELL DISTRIBUTION WIDTH (BEAKER) (test code = 14.9 % 11.6-14.4 412) PLATELET COUNT (BEAKER) (test code = 756) 77 K/CU MM 150-45 0 MEAN PLATELET VOLUME (BEAKER) (test code = 754) 8.9 fL 9.4-12.4 NUCLEATED RED BLOOD CELLS (BEAKER) (test code = 0 /100 WBC 0-0 413) POCT-GLUCOSE [id number] 21:26:00 Test Item Value Reference Range Comments POC-GLUCOSE METER (BEAKER) 121 mg/dL 70-110 TESTE D AT [address] (test code = 1538) [place] [id number] [id number] 19:05:00 Test Item Value Reference Range Comments PARTIAL THROMBOPLASTIN TIME (BEAKER) (test code 64.0 seconds 22.5-36.0 = 760) POCT-GLUCOSE [id number] 17:24:00 Test Item Value Reference Range Comments POC-GLUCOSE METER (BEAKER) 131 mg/dL 70-110 TESTE D AT [address] (test code = 1538) [place] [id number] [id number] 13:32:00 Test Item Value Reference Range Comments PARTIAL THROMBOPLASTIN TIME (BEAKER) (test code 81.4 seconds 22.5-36.0 = 760) POCT-GLUCOSE [id number] 12:32:00 Test Item Value Reference Range Comments POC-GLUCOSE METER (BEAKER) 102 mg/dL 70-110 TESTE D AT [address] (test code = 1538) [place] [id number] POCT-GLUCOSE [id number] 07:07:00 Test Item Value Reference Range Comments POC-GLUCOSE METER (BEAKER) 113 mg/dL 70-110 TESTE D AT [address] (test code = 1538) [place] [id number] [id number] 05:47:00 Test Item Value Reference Range Comments PARTIAL THROMBOPLASTIN TIME (BEAKER) (test code 91.8 seconds 22.5-36.0 = 760) POCT-GLUCOSE [id number] 21:27:00 Test Item Value Reference Range Comments POC-GLUCOSE METER (BEAKER) 90 mg/dL 70-110 TESTE D AT [facility] [address] [facility] (test code = 1538) [place] [id number] POCT-GLUCOSE [id number] 17:46:00 Test Item Value Reference Range Comments POC-GLUCOSE METER (BEAKER) 175 mg/dL 70-110 TESTE D AT [address] (test code = 1538) [place] [id number] POCT-GLUCOSE [id number] 17:30:00 Test Item Value Reference Range Comments POC-GLUCOSE METER (BEAKER) 84 mg/dL 70-110 TESTE D AT [address] (test code = 1538) [place] [id number] [id number] 13:20:00 Test Item Value Reference Range Comments PARTIAL THROMBOPLASTIN TIME (BEAKER) (test code 68.4 seconds 22.5-36.0 = 760) BASIC METABOLIC [id number] 10:36:00 Test Item Value Reference Range Comments SODIUM (BEAKER) (test 133 meq/L 136-145 code = 381) POTASSIUM (BEAKER) (test 4.4 meq/L 3.5-5.1 code = 379) CHLORIDE (BEAKER) (test 98 meq/L 98-107 code = 382) CO2 (BEAKER) (test code = 25 meq/L 22-29 355) BLOOD UREA NITROGEN 38 mg/dL 7-21 (BEAKER) (test code = 354) CREATININE (BEAKER) (test 6.36 mg/dL 0.57-1.25 code = 358) GLUCOSE RANDOM (BEAKER) 94 mg/dL 70-105 (test code = 652) CALCIUM (BEAKER) (test 8.8 mg/dL 8.4-10.2 code = 697) EGFR (BEAKER) (test code 11 mL/min/1.73 sq m EST IMATED GFR IS NOT = 1092) ACCURATE CREA TININE CLEARANCE IN PRE DICTING GLOMERULAR FILTR ATION RATE. ESTIMATED GFR IS NOT APPLICABLE F OR DIALYSIS PATIENT S. POCT-GLUCOSE [id number] 07:43:00 Test Item Value Reference Range Comments POC-GLUCOSE METER (BEAKER) 84 mg/dL 70-110 TESTE D AT [facility] [address] (test code = 1538) [place] [address] [id number] 06:52:00 Test Item Value Reference Range Comments PARTIAL THROMBOPLASTIN TIME (BEAKER) (test code 76.5 seconds 22.5-36.0 = 760) PROTHROMBIN [id number] 06:51:00 Test Item Value Reference Range Comments PROTIME (BEAKER) (test code = 759) 16.5 seconds 11.7-14.7 INR (BEAKER) (test code = 370) 1.3 <=5.9 RECOMMENDED COUMADIN/WARFARIN INR THERAPY RANGESSTANDARD DOSE: 2.0 - 3.0 Includes: PROPHYLAXIS forvenous thrombosis, systemic embolization; TREATMENT for venous thrombosis and/or pulmonary embolus.HIGH RISK: Target INR is 2.5-3.5 for patients with mechanical heart valves.CBC W/PLT COUNT & AUTO DIFFERENTIAL 2018-12-13 06:50:00 Test Item Value Reference Range Comments WHITE BLOOD CELL COUNT (BEAKER) (test code = 775) 8.4 K/ L 3.5-10.5 RED BLOOD CELL COUNT (BEAKER) (test code = 761) 3.28 M/ L 4.63-6.08 HEMOGLOBIN (BEAKER) (test code = 410) 10.9 GM/DL 13.7-17.5 HEMATOCRIT (BEAKER) (test code = 411) 34.0 % 40.1-51.0 MEAN CORPUSCULAR VOLUME (BEAKER) (test code = 103.7 fL 79 .0-92.2 753) MEAN CORPUSCULAR HEMOGLOBIN (BEAKER) (test code = 33.2 pg 25.7-32.2 751) MEAN CORPUSCULAR HEMOGLOBIN CONC (BEAKER) (test 32.1 GM/DL 32.3-36.5 code = 752) RED CELL DISTRIBUTION WIDTH (BEAKER) (test code = 15.5 % 11.6-14.4 412) PLATELET COUNT (BEAKER) (test code = 756) 83 K/CU MM 150-45 0 MEAN PLATELET VOLUME (BEAKER) (test code = 754) 9.4 fL 9.4-12.4 NUCLEATED RED BLOOD CELLS (BEAKER) (test code = 0 /100 WBC 0-0 413) NEUTROPHILS RELATIVE PERCENT (BEAKER) (test code 72 % = 429) LYMPHOCYTES RELATIVE PERCENT (BEAKER) (test code 16 % = 430) MONOCYTES RELATIVE PERCENT (BEAKER) (test code = 11 % 431) EOSINOPHILS RELATIVE PERCENT (BEAKER) (test code 1 % = 432) BASOPHILS RELATIVE PERCENT (BEAKER) (test code = 1 % 437) NEUTROPHILS ABSOLUTE COUNT (BEAKER) (test code = 6.00 K/ L 1.78-5.38 670) LYMPHOCYTES ABSOLUTE COUNT (BEAKER) (test code = 1.34 K/ L 1.32-3.57 414) MONOCYTES ABSOLUTE COUNT (BEAKER) (test code = 0.88 K/ L 0 .30-0.82 415) EOSINOPHILS ABSOLUTE COUNT (BEAKER) (test code = 0.05 K/ L 0.04-0.54 416) BASOPHILS ABSOLUTE COUNT (BEAKER) (test code = 0.04 K/ L 0 .01-0.08 417) IMMATURE GRANULOCYTES-RELATIVE PERCENT (BEAKER) 1 % 0-1 (test code = 2801) [id number] 00:11:00 Test Item Value Reference Range Comments PARTIAL THROMBOPLASTIN TIME (BEAKER) (test code 59.7 seconds 22.5-36.0 = 760) POCT-GLUCOSE [id number] 21:33:00 Test Item Value Reference Range Comments POC-GLUCOSE METER (BEAKER) 113 mg/dL 70-110 TESTE D AT [address] (test code = 1538) [place] [id number] POCT-GLUCOSE [id number] 18:08:00 Test Item Value Reference Range Comments POC-GLUCOSE METER (BEAKER) 128 mg/dL 70-110 TESTE D AT [address] (test code = 1538) [place] [id number] [id number] 16:51:00 Test Item Value Reference Range Comments PARTIAL THROMBOPLASTIN TIME (BEAKER) (test code 71.6 seconds 22.5-36.0 = 760) POCT-GLUCOSE [id number] 12:39:00 Test Item Value Reference Range Comments POC-GLUCOSE METER (BEAKER) 124 mg/dL 70-110 TESTE D AT [address] (test code = 1538) [place] [id number] [id number] 09:07:00 Test Item Value Reference Range Comments PARTIAL THROMBOPLASTIN TIME (BEAKER) (test code 96.6 seconds 22.5-36.0 = 760) POCT-GLUCOSE [id number] 07:48:00 Test Item Value Reference Range Comments POC-GLUCOSE METER (BEAKER) 105 mg/dL 70-110 TESTE D AT [facility] [address] (test code = 1538) [place] [address] BASIC METABOLIC [id number] 01:54:00 Test Item Value Reference Range Comments SODIUM (BEAKER) (test 138 meq/L 136-145 code = 381) POTASSIUM (BEAKER) (test 3.9 meq/L 3.5-5.1 code = 379) CHLORIDE (BEAKER) (test 100 meq/L 98-107 code = 382) CO2 (BEAKER) (test code = 30 meq/L 22-29 355) BLOOD UREA NITROGEN 22 mg/dL 7-21 (BEAKER) (test code = 354) CREATININE (BEAKER) (test 4.23 mg/dL 0.57-1.25 code = 358) GLUCOSE RANDOM (BEAKER) 132 mg/dL 70-105 (test code = 652) CALCIUM (BEAKER) (test 8.6 mg/dL 8.4-10.2 code = 697) EGFR (BEAKER) (test code 17 mL/min/1.73 sq m EST IMATED GFR IS NOT = 1092) ACCURATE CREA TININE CLEARANCE IN PRE DICTING GLOMERULAR FILTR ATION RATE. ESTIMATED GFR IS NOT APPLICABLE F OR DIALYSIS PATIENT S. [id number] 01:37:00 Test Item Value Reference Range Comments PARTIAL THROMBOPLASTIN TIME (BEAKER) (test code 53.4 seconds 22.5-36.0 = 760) PROTHROMBIN [id number] 01:36:00 Test Item Value Reference Range Comments PROTIME (BEAKER) (test code = 759) 18.1 seconds 11.7-14.7 INR (BEAKER) (test code = 370) 1.5 <=5.9 RECOMMENDED COUMADIN/WARFARIN INR THERAPY RANGESSTANDARD DOSE: 2.0 - 3.0 Includes: PROPHYLAXIS forvenous thrombosis, systemic embolization; TREATMENT for venous thrombosis and/or pulmonary embolus.HIGH RISK: Target INR is 2.5-3.5 for patients with mechanical heart valves.CBC W/PLT COUNT & AUTO DIFFERENTIAL 2018-12-12 01:22:00 Test Item Value Reference Range Comments WHITE BLOOD CELL COUNT (BEAKER) (test code = 775) 9.0 K/ L 3.5-10.5 RED BLOOD CELL COUNT (BEAKER) (test code = 761) 3.25 M/ L 4.63-6.08 HEMOGLOBIN (BEAKER) (test code = 410) 10.8 GM/DL 13.7-17.5 HEMATOCRIT (BEAKER) (test code = 411) 33.7 % 40.1-51.0 MEAN CORPUSCULAR VOLUME (BEAKER) (test code = 103.7 fL 79 .0-92.2 753) MEAN CORPUSCULAR HEMOGLOBIN (BEAKER) (test code = 33.2 pg 25.7-32.2 751) MEAN CORPUSCULAR HEMOGLOBIN CONC (BEAKER) (test 32.0 GM/DL 32.3-36.5 code = 752) RED CELL DISTRIBUTION WIDTH (BEAKER) (test code = 15.9 % 11.6-14.4 412) PLATELET COUNT (BEAKER) (test code = 756) 89 K/CU MM 150-45 0 MEAN PLATELET VOLUME (BEAKER) (test code = 754) 9.5 fL 9.4-12.4 NUCLEATED RED BLOOD CELLS (BEAKER) (test code = 0 /100 WBC 0-0 413) NEUTROPHILS RELATIVE PERCENT (BEAKER) (test code 70 % = 429) LYMPHOCYTES RELATIVE PERCENT (BEAKER) (test code 15 % = 430) MONOCYTES RELATIVE PERCENT (BEAKER) (test code = 13 % 431) EOSINOPHILS RELATIVE PERCENT (BEAKER) (test code 0 % = 432) BASOPHILS RELATIVE PERCENT (BEAKER) (test code = 0 % 437) NEUTROPHILS ABSOLUTE COUNT (BEAKER) (test code = 6.28 K/ L 1.78-5.38 670) LYMPHOCYTES ABSOLUTE COUNT (BEAKER) (test code = 1.37 K/ L 1.32-3.57 414) MONOCYTES ABSOLUTE COUNT (BEAKER) (test code = 1.15 K/ L 0 .30-0.82 415) EOSINOPHILS ABSOLUTE COUNT (BEAKER) (test code = 0.04 K/ L 0.04-0.54 416) BASOPHILS ABSOLUTE COUNT (BEAKER) (test code = 0.04 K/ L 0 .01-0.08 417) IMMATURE GRANULOCYTES-RELATIVE PERCENT (BEAKER) 1 % 0-1 (test code = 2801) POCT-GLUCOSE [id number] 21:57:00 Test Item Value Reference Range Comments POC-GLUCOSE METER (BEAKER) 165 mg/dL 70-110 TESTE D AT [address] (test code = 1538) [place] [id number] [id number] 18:46:00 Test Item Value Reference Range Comments PARTIAL THROMBOPLASTIN TIME (BEAKER) (test code 39.0 seconds 22.5-36.0 = 760) POCT-GLUCOSE [id number] 17:51:00 Test Item Value Reference Range Comments POC-GLUCOSE METER (BEAKER) 157 mg/dL 70-110 TESTE D AT [address] (test code = 1538) [place] [id number] POCT-GLUCOSE [id number] 17:09:00 Test Item Value Reference Range Comments POC-GLUCOSE METER (BEAKER) 162 mg/dL 70-110 TESTE D AT [address] (test code = 1538) [place] [id number] [id number] 16:07:00 Test Item Value Reference Range Comments PARTIAL THROMBOPLASTIN TIME (BEAKER) (test 117.0 seconds 22.5- 36.0 code = 760) POCT-GLUCOSE [id number] 13:28:00 Test Item Value Reference Range Comments POC-GLUCOSE METER (BEAKER) 88 mg/dL 70-110 TESTE D AT [address] (test code = 1538) [place] [id number] [id number] 09:17:00 Test Item Value Reference Range Comments PARTIAL THROMBOPLASTIN TIME (BEAKER) (test code 71.7 seconds 22.5-36.0 = 760) POCT-GLUCOSE [id number] 08:07:00 Test Item Value Reference Range Comments POC-GLUCOSE METER (BEAKER) 137 mg/dL 70-110 TESTE D AT [address] (test code = 1538) [place] [id number] [id number] 02:27:00 Test Item Value Reference Range Comments PARTIAL THROMBOPLASTIN TIME (BEAKER) (test code 62.4 seconds 22.5-36.0 = 760) PROTHROMBIN [id number] 02:26:00 Test Item Value Reference Range Comments PROTIME (BEAKER) (test code = 759) 20.0 seconds 11.7-14.7 INR (BEAKER) (test code = 370) 1.7 <=5.9 RECOMMENDED COUMADIN/WARFARIN INR THERAPY RANGESSTANDARD DOSE: 2.0 - 3.0 Includes: PROPHYLAXIS forvenous thrombosis, systemic embolization; TREATMENT for venous thrombosis and/or pulmonary embolus.HIGH RISK: Target INR is 2.5-3.5 for patients with mechanical heart valves.BASIC METABOLIC [id number] 02:02:00 Test Item Value Reference Range Comments SODIUM (BEAKER) (test 139 meq/L 136-145 code = 381) POTASSIUM (BEAKER) (test 4.1 meq/L 3.5-5.1 code = 379) CHLORIDE (BEAKER) (test 100 meq/L 98-107 code = 382) CO2 (BEAKER) (test code = 25 meq/L 22-29 355) BLOOD UREA NITROGEN 48 mg/dL 7-21 (BEAKER) (test code = 354) CREATININE (BEAKER) (test 6.50 mg/dL 0.57-1.25 code = 358) GLUCOSE RANDOM (BEAKER) 127 mg/dL 70-105 (test code = 652) CALCIUM (BEAKER) (test 8.7 mg/dL 8.4-10.2 code = 697) EGFR (BEAKER) (test code 11 mL/min/1.73 sq m EST IMATED GFR IS NOT = 1092) ACCURATE CREA TININE CLEARANCE IN PRE DICTING GLOMERULAR FILTR ATION RATE. ESTIMATED GFR IS NOT APPLICABLE F OR DIALYSIS PATIENT S. CBC W/PLT COUNT & AUTO [id number] 01:42:00 Test Item Value Reference Range Comments WHITE BLOOD CELL COUNT (BEAKER) (test code = 775) 9.1 K/ L 3.5-10.5 RED BLOOD CELL COUNT (BEAKER) (test code = 761) 3.22 M/ L 4.63-6.08 HEMOGLOBIN (BEAKER) (test code = 410) 10.8 GM/DL 13.7-17.5 HEMATOCRIT (BEAKER) (test code = 411) 33.5 % 40.1-51.0 MEAN CORPUSCULAR VOLUME (BEAKER) (test code = 104.0 fL 79 .0-92.2 753) MEAN CORPUSCULAR HEMOGLOBIN (BEAKER) (test code = 33.5 pg 25.7-32.2 751) MEAN CORPUSCULAR HEMOGLOBIN CONC (BEAKER) (test 32.2 GM/DL 32.3-36.5 code = 752) RED CELL DISTRIBUTION WIDTH (BEAKER) (test code = 16.0 % 11.6-14.4 412) PLATELET COUNT (BEAKER) (test code = 756) 94 K/CU MM 150-45 0 MEAN PLATELET VOLUME (BEAKER) (test code = 754) 9.9 fL 9.4-12.4 NUCLEATED RED BLOOD CELLS (BEAKER) (test code = 0 /100 WBC 0-0 413) NEUTROPHILS RELATIVE PERCENT (BEAKER) (test code 73 % = 429) LYMPHOCYTES RELATIVE PERCENT (BEAKER) (test code 13 % = 430) MONOCYTES RELATIVE PERCENT (BEAKER) (test code = 11 % 431) EOSINOPHILS RELATIVE PERCENT (BEAKER) (test code 0 % = 432) BASOPHILS RELATIVE PERCENT (BEAKER) (test code = 0 % 437) NEUTROPHILS ABSOLUTE COUNT (BEAKER) (test code = 6.63 K/ L 1.78-5.38 670) LYMPHOCYTES ABSOLUTE COUNT (BEAKER) (test code = 1.14 K/ L 1.32-3.57 414) MONOCYTES ABSOLUTE COUNT (BEAKER) (test code = 1.03 K/ L 0 .30-0.82 415) EOSINOPHILS ABSOLUTE COUNT (BEAKER) (test code = 0.04 K/ L 0.04-0.54 416) BASOPHILS ABSOLUTE COUNT (BEAKER) (test code = 0.03 K/ L 0 .01-0.08 417) IMMATURE GRANULOCYTES-RELATIVE PERCENT (BEAKER) 2 % 0-1 (test code = 2801) POCT-GLUCOSE [id number] 21:12:00 Test Item Value Reference Range Comments POC-GLUCOSE METER (BEAKER) 199 mg/dL 70-110 TESTE D AT [facility] [address] [facility] (test code = 1538) [facility] [address] POCT-GLUCOSE [id number] 17:39:00 Test Item Value Reference Range Comments POC-GLUCOSE METER (BEAKER) 145 mg/dL 70-110 TESTE D AT [facility] [address] [facility] (test code = 1538) [facility] [address] [id number] 17:33:00 Test Item Value Reference Range Comments PARTIAL THROMBOPLASTIN TIME (BEAKER) (test code 47.3 seconds 22.5-36.0 = 760) POCT-GLUCOSE [id number] 12:53:00 Test Item Value Reference Range Comments POC-GLUCOSE METER (BEAKER) 203 mg/dL 70-110 TESTE D AT [address] (test code = 1538) [place] [id number] POCT-GLUCOSE [id number] 08:28:00 Test Item Value Reference Range Comments POC-GLUCOSE METER (BEAKER) 98 mg/dL 70-110 TESTE D AT [address] (test code = 1538) [place] [id number] BASIC METABOLIC [id number] 05:52:00 Test Item Value Reference Range Comments SODIUM (BEAKER) (test 135 meq/L 136-145 code = 381) POTASSIUM (BEAKER) (test 4.0 meq/L 3.5-5.1 code = 379) CHLORIDE (BEAKER) (test 97 meq/L 98-107 code = 382) CO2 (BEAKER) (test code = 26 meq/L 22-29 355) BLOOD UREA NITROGEN 31 mg/dL 7-21 (BEAKER) (test code = 354) CREATININE (BEAKER) (test 4.88 mg/dL 0.57-1.25 code = 358) GLUCOSE RANDOM (BEAKER) 135 mg/dL 70-105 (test code = 652) CALCIUM (BEAKER) (test 8.9 mg/dL 8.4-10.2 code = 697) EGFR (BEAKER) (test code 15 mL/min/1.73 sq m EST IMATED GFR IS NOT = 1092) ACCURATE CREA TININE CLEARANCE IN PRE DICTING GLOMERULAR FILTR ATION RATE. ESTIMATED GFR IS NOT APPLICABLE F OR DIALYSIS PATIENT S. PROTHROMBIN [id number] 05:51:00 Test Item Value Reference Range Comments PROTIME (BEAKER) (test code = 759) 22.9 seconds 11.7-14.7 INR (BEAKER) (test code = 370) 2.0 <=5.9 RECOMMENDED COUMADIN/WARFARIN INR THERAPY RANGESSTANDARD DOSE: 2.0 - 3.0 Includes: PROPHYLAXIS forvenous thrombosis, systemic embolization; TREATMENT for venous thrombosis and/or pulmonary embolus.HIGH RISK: Target INR is 2.5-3.5 for patients with mechanical heart valves.CBC W/PLT COUNT & AUTO DIFFERENTIAL 2018-12-10 05:31:00 Test Item Value Reference Range Comments WHITE BLOOD CELL COUNT (BEAKER) (test code = 8.3 K/ L 3.5 -10.5 775) RED BLOOD CELL COUNT (BEAKER) (test code = 761) 3.29 M/ L 4.63-6.08 HEMOGLOBIN (BEAKER) (test code = 410) 10.8 GM/DL 13.7-17.5 HEMATOCRIT (BEAKER) (test code = 411) 34.1 % 40.1-51.0 MEAN CORPUSCULAR VOLUME (BEAKER) (test code = 103.6 fL 79 .0-92.2 753) MEAN CORPUSCULAR HEMOGLOBIN (BEAKER) (test code 32.8 pg 25.7-32.2 = 751) MEAN CORPUSCULAR HEMOGLOBIN CONC (BEAKER) (test 31.7 GM/DL 32.3-36.5 code = 752) RED CELL DISTRIBUTION WIDTH (BEAKER) (test code 16.4 % 11.6-14.4 = 412) PLATELET COUNT (BEAKER) (test code = 756) 105 K/CU MM 150-45 0 MEAN PLATELET VOLUME (BEAKER) (test code = 754) 9.7 fL 9.4-12.4 NUCLEATED RED BLOOD CELLS (BEAKER) (test code = 0 /100 WBC 0-0 413) NEUTROPHILS RELATIVE PERCENT (BEAKER) (test code 76 % = 429) LYMPHOCYTES RELATIVE PERCENT (BEAKER) (test code 10 % = 430) MONOCYTES RELATIVE PERCENT (BEAKER) (test code = 13 % 431) EOSINOPHILS RELATIVE PERCENT (BEAKER) (test code 0 % = 432) BASOPHILS RELATIVE PERCENT (BEAKER) (test code = 0 % 437) NEUTROPHILS ABSOLUTE COUNT (BEAKER) (test code = 6.32 K/ L 1.78-5.38 670) LYMPHOCYTES ABSOLUTE COUNT (BEAKER) (test code = 0.85 K/ L 1.32-3.57 414) MONOCYTES ABSOLUTE COUNT (BEAKER) (test code = 1.04 K/ L 0 .30-0.82 415) EOSINOPHILS ABSOLUTE COUNT (BEAKER) (test code = 0.02 K/ L 0.04-0.54 416) BASOPHILS ABSOLUTE COUNT (BEAKER) (test code = 0.02 K/ L 0 .01-0.08 417) IMMATURE GRANULOCYTES-RELATIVE PERCENT (BEAKER) 1 % 0-1 (test code = 2801) POCT-GLUCOSE [id number] 20:54:00 Test Item Value Reference Range Comments POC-GLUCOSE METER (BEAKER) 126 mg/dL 70-110 TESTE D AT [address] (test code = 1538) [place] [address] POCT-GLUCOSE [id number] 18:47:00 Test Item Value Reference Range Comments POC-GLUCOSE METER (BEAKER) 70 mg/dL 70-110 TESTE D AT [address] (test code = 1538) [place] [address] POCT-GLUCOSE [id number] 13:25:00 Test Item Value Reference Range Comments POC-GLUCOSE METER (BEAKER) 120 mg/dL 70-110 TESTE D AT [address] (test code = 1538) [place] [address] POCT-GLUCOSE [id number] 09:32:00 Test Item Value Reference Range Comments POC-GLUCOSE METER (BEAKER) 104 mg/dL 70-110 TESTE D AT [address] (test code = 1538) [place] [address] BASIC METABOLIC [id number] 05:59:00 Test Item Value Reference Range Comments SODIUM (BEAKER) (test 132 meq/L 136-145 code = 381) POTASSIUM (BEAKER) (test 4.4 meq/L 3.5-5.1 code = 379) CHLORIDE (BEAKER) (test 93 meq/L 98-107 code = 382) CO2 (BEAKER) (test code = 24 meq/L 22-29 355) BLOOD UREA NITROGEN 68 mg/dL 7-21 (BEAKER) (test code = 354) CREATININE (BEAKER) (test 7.47 mg/dL 0.57-1.25 code = 358) GLUCOSE RANDOM (BEAKER) 112 mg/dL 70-105 (test code = 652) CALCIUM (BEAKER) (test 8.9 mg/dL 8.4-10.2 code = 697) EGFR (BEAKER) (test code 9 mL/min/1.73 sq m OK MATED GFR IS NOT = 1092) ACCURATE CREA TININE CLEARANCE IN PRE DICTING GLOMERULAR FILTR ATION RATE. ESTIMATED GFR IS NOT APPLICABLE F OR DIALYSIS PATIENT S. PROTHROMBIN [id number] 05:20:00 Test Item Value Reference Range Comments PROTIME (BEAKER) (test code = 759) 30.5 seconds 11.7-14.7 INR (BEAKER) (test code = 370) 2.9 <=5.9 RECOMMENDED COUMADIN/WARFARIN INR THERAPY RANGESSTANDARD DOSE: 2.0 - 3.0 Includes: PROPHYLAXIS forvenous thrombosis, systemic embolization; TREATMENT for venous thrombosis and/or pulmonary embolus.HIGH RISK: Target INR is 2.5-3.5 for patients with mechanical heart valves.CBC W/PLT COUNT & AUTO DIFFERENTIAL 2018-12-09 05:13:00 Test Item Value Reference Range Comments WHITE BLOOD CELL COUNT (BEAKER) (test code = 8.1 K/ L 3.5 -10.5 775) RED BLOOD CELL COUNT (BEAKER) (test code = 761) 3.29 M/ L 4.63-6.08 HEMOGLOBIN (BEAKER) (test code = 410) 10.9 GM/DL 13.7-17.5 HEMATOCRIT (BEAKER) (test code = 411) 33.7 % 40.1-51.0 MEAN CORPUSCULAR VOLUME (BEAKER) (test code = 102.4 fL 79 .0-92.2 753) MEAN CORPUSCULAR HEMOGLOBIN (BEAKER) (test code 33.1 pg 25.7-32.2 = 751) MEAN CORPUSCULAR HEMOGLOBIN CONC (BEAKER) (test 32.3 GM/DL 32.3-36.5 code = 752) RED CELL DISTRIBUTION WIDTH (BEAKER) (test code 16.1 % 11.6-14.4 = 412) PLATELET COUNT (BEAKER) (test code = 756) 115 K/CU MM 150-45 0 MEAN PLATELET VOLUME (BEAKER) (test code = 754) 9.3 fL 9.4-12.4 NUCLEATED RED BLOOD CELLS (BEAKER) (test code = 0 /100 WBC 0-0 413) NEUTROPHILS RELATIVE PERCENT (BEAKER) (test code 77 % = 429) LYMPHOCYTES RELATIVE PERCENT (BEAKER) (test code 11 % = 430) MONOCYTES RELATIVE PERCENT (BEAKER) (test code = 11 % 431) EOSINOPHILS RELATIVE PERCENT (BEAKER) (test code 0 % = 432) BASOPHILS RELATIVE PERCENT (BEAKER) (test code = 0 % 437) NEUTROPHILS ABSOLUTE COUNT (BEAKER) (test code = 6.20 K/ L 1.78-5.38 670) LYMPHOCYTES ABSOLUTE COUNT (BEAKER) (test code = 0.90 K/ L 1.32-3.57 414) MONOCYTES ABSOLUTE COUNT (BEAKER) (test code = 0.89 K/ L 0 .30-0.82 415) EOSINOPHILS ABSOLUTE COUNT (BEAKER) (test code = 0.02 K/ L 0.04-0.54 416) BASOPHILS ABSOLUTE COUNT (BEAKER) (test code = 0.02 K/ L 0 .01-0.08 417) IMMATURE GRANULOCYTES-RELATIVE PERCENT (BEAKER) 1 % 0-1 (test code = 2801) POCT-GLUCOSE [id number] 21:14:00 Test Item Value Reference Range Comments POC-GLUCOSE METER (BEAKER) 200 mg/dL 70-110 TESTE D AT [address] (test code = 1538) [place] [address] POCT-GLUCOSE [id number] 17:34:00 Test Item Value Reference Range Comments POC-GLUCOSE METER (BEAKER) 143 mg/dL 70-110 TESTE D AT [address] (test code = 1538) [place] [address] POCT-GLUCOSE [id number] 12:04:00 Test Item Value Reference Range Comments POC-GLUCOSE METER (BEAKER) 160 mg/dL 70-110 TESTE D AT [address] (test code = 1538) [place] [address] POCT-GLUCOSE [id number] 08:08:00 Test Item Value Reference Range Comments POC-GLUCOSE METER (BEAKER) 154 mg/dL 70-110 TESTE D AT [address] (test code = 1538) [place] [id number] BASIC METABOLIC [id number] 06:33:00 Test Item Value Reference Range Comments SODIUM (BEAKER) (test 135 meq/L 136-145 code = 381) POTASSIUM (BEAKER) (test 4.2 meq/L 3.5-5.1 code = 379) CHLORIDE (BEAKER) (test 95 meq/L 98-107 code = 382) CO2 (BEAKER) (test code = 25 meq/L 22-29 355) BLOOD UREA NITROGEN 55 mg/dL 7-21 (BEAKER) (test code = 354) CREATININE (BEAKER) (test 6.11 mg/dL 0.57-1.25 code = 358) GLUCOSE RANDOM (BEAKER) 120 mg/dL 70-105 (test code = 652) CALCIUM (BEAKER) (test 9.2 mg/dL 8.4-10.2 code = 697) EGFR (BEAKER) (test code 11 mL/min/1.73 sq m EST IMATED GFR IS NOT = 1092) ACCURATE CREA TININE CLEARANCE IN PRE DICTING GLOMERULAR FILTR ATION RATE. ESTIMATED GFR IS NOT APPLICABLE F OR DIALYSIS PATIENT S. [id number] 06:01:00 Test Item Value Reference Range Comments PARTIAL THROMBOPLASTIN TIME (BEAKER) (test 117.2 seconds 22.5- 36.0 code = 760) PROTHROMBIN [id number] 05:56:00 Test Item Value Reference Range Comments PROTIME (BEAKER) (test code = 759) 30.8 seconds 11.7-14.7 INR (BEAKER) (test code = 370) 3.0 <=5.9 RECOMMENDED COUMADIN/WARFARIN INR THERAPY RANGESSTANDARD DOSE: 2.0 - 3.0 Includes: PROPHYLAXIS forvenous thrombosis, systemic embolization; TREATMENT for venous thrombosis and/or pulmonary embolus.HIGH RISK: Target INR is 2.5-3.5 for patients with mechanical heart valves.CBC W/PLT COUNT & AUTO DIFFERENTIAL 2018-12-08 05:46:00 Test Item Value Reference Range Comments WHITE BLOOD CELL COUNT (BEAKER) (test code = 7.6 K/ L 3.5 -10.5 775) RED BLOOD CELL COUNT (BEAKER) (test code = 761) 3.30 M/ L 4.63-6.08 HEMOGLOBIN (BEAKER) (test code = 410) 11.0 GM/DL 13.7-17.5 HEMATOCRIT (BEAKER) (test code = 411) 34.1 % 40.1-51.0 MEAN CORPUSCULAR VOLUME (BEAKER) (test code = 103.3 fL 79 .0-92.2 753) MEAN CORPUSCULAR HEMOGLOBIN (BEAKER) (test code 33.3 pg 25.7-32.2 = 751) MEAN CORPUSCULAR HEMOGLOBIN CONC (BEAKER) (test 32.3 GM/DL 32.3-36.5 code = 752) RED CELL DISTRIBUTION WIDTH (BEAKER) (test code 16.1 % 11.6-14.4 = 412) PLATELET COUNT (BEAKER) (test code = 756) 119 K/CU MM 150-45 0 MEAN PLATELET VOLUME (BEAKER) (test code = 754) 9.2 fL 9.4-12.4 NUCLEATED RED BLOOD CELLS (BEAKER) (test code = 0 /100 WBC 0-0 413) NEUTROPHILS RELATIVE PERCENT (BEAKER) (test code 73 % = 429) LYMPHOCYTES RELATIVE PERCENT (BEAKER) (test code 13 % = 430) MONOCYTES RELATIVE PERCENT (BEAKER) (test code = 13 % 431) EOSINOPHILS RELATIVE PERCENT (BEAKER) (test code 0 % = 432) BASOPHILS RELATIVE PERCENT (BEAKER) (test code = 0 % 437) NEUTROPHILS ABSOLUTE COUNT (BEAKER) (test code = 5.57 K/ L 1.78-5.38 670) LYMPHOCYTES ABSOLUTE COUNT (BEAKER) (test code = 1.01 K/ L 1.32-3.57 414) MONOCYTES ABSOLUTE COUNT (BEAKER) (test code = 0.96 K/ L 0 .30-0.82 415) EOSINOPHILS ABSOLUTE COUNT (BEAKER) (test code = 0.01 K/ L 0.04-0.54 416) BASOPHILS ABSOLUTE COUNT (BEAKER) (test code = 0.01 K/ L 0 .01-0.08 417) IMMATURE GRANULOCYTES-RELATIVE PERCENT (BEAKER) 1 % 0-1 (test code = 2801) POCT-GLUCOSE [id number] 21:37:00 Test Item Value Reference Range Comments POC-GLUCOSE METER (BEAKER) 121 mg/dL 70-110 TESTE D AT [facility] [address] [facility] (test code = 1538) [facility] [id number] POCT-GLUCOSE [id number] 19:01:00 Test Item Value Reference Range Comments POC-GLUCOSE METER (BEAKER) 191 mg/dL 70-110 TESTE D AT [facility] [address] [facility] (test code = 1538) [place] [id number] [id number] 18:31:00 Test Item Value Reference Range Comments PARTIAL THROMBOPLASTIN TIME (BEAKER) (test code 86.2 seconds 22.5-36.0 = 760) POCT-GLUCOSE [id number] 13:05:00 Test Item Value Reference Range Comments POC-GLUCOSE METER (BEAKER) 130 mg/dL 70-110 TESTE D AT [facility] [address] [facility] (test code = 1538) [place] [id number] RAD, CHEST, 1 VIEW, NON [id number] 12:22:00Reason for exam:->pleural effusionsShould this be performed at the bedside?->YesFINAL REPORT RAD, CHEST, 1 VIEW, NON DEPT INDICATION: pleural effusions COMPAR BRIAN: December 04, 2018 FINDINGS: Portable frontal view of the chest. IMPRESSION: Worsening interstitial edema. Stable right effusion tracking into the minor fissure. Persistent enlargement of the cardiac silhouette with stable surgical changes. Sternotomy wires are intact. Signed: JR Platt Robert MDReport Verified Date/Time: 12/07/2018 12:22:50 Reading Location: [address] Neuro Reading Room [id number] 11:39:00 Test Item Value Reference Range Comments PARTIAL THROMBOPLASTIN TIME (BEAKER) (test 100.1 seconds 22.5- 36.0 code = 760) BODY FLUID CULTURE + GRAM [id number] 10:13:00 Test Item Value Reference Range Comments CULTURE (BEAKER) (test code = No growth 1095) GRAM STAIN RESULT (BEAKER) (test <1+ White blood cells seen code = 1123) GRAM STAIN RESULT (BEAKER) (test No organisms seen code = 84574) POCT-GLUCOSE [id number] 08:51:00 Test Item Value Reference Range Comments POC-GLUCOSE METER (BEAKER) 90 mg/dL 70-110 TESTE D AT [facility] [address] (test code = 1538) [place] [address] BASIC METABOLIC [id number] 07:31:00 Test Item Value Reference Range Comments SODIUM (BEAKER) (test 136 meq/L 136-145 code = 381) POTASSIUM (BEAKER) (test 3.8 meq/L 3.5-5.1 code = 379) CHLORIDE (BEAKER) (test 97 meq/L 98-107 code = 382) CO2 (BEAKER) (test code = 27 meq/L 22-29 355) BLOOD UREA NITROGEN 36 mg/dL 7-21 (BEAKER) (test code = 354) CREATININE (BEAKER) (test 4.44 mg/dL 0.57-1.25 code = 358) GLUCOSE RANDOM (BEAKER) 76 mg/dL 70-105 (test code = 652) CALCIUM (BEAKER) (test 9.2 mg/dL 8.4-10.2 code = 697) EGFR (BEAKER) (test code 16 mL/min/1.73 sq m EST IMATED GFR IS NOT = 1092) ACCURATE CREA TININE CLEARANCE IN PRE DICTING GLOMERULAR FILTR ATION RATE. ESTIMATED GFR IS NOT APPLICABLE F OR DIALYSIS PATIENT S. [id number] 05:21:00 Test Item Value Reference Range Comments PARTIAL THROMBOPLASTIN TIME (BEAKER) (test 104.0 seconds 22.5- 36.0 code = 760) PROTHROMBIN [id number] 04:50:00 Test Item Value Reference Range Comments PROTIME (BEAKER) (test code = 759) 23.7 seconds 11.7-14.7 INR (BEAKER) (test code = 370) 2.1 <=5.9 RECOMMENDED COUMADIN/WARFARIN INR THERAPY RANGESSTANDARD DOSE: 2.0 - 3.0 Includes: PROPHYLAXIS forvenous thrombosis, systemic embolization; TREATMENT for venous thrombosis and/or pulmonary embolus.HIGH RISK: Target INR is 2.5-3.5 for patients with mechanical heart valves.CBC W/PLT COUNT & AUTO DIFFERENTIAL 2018-12-07 04:37:00 Test Item Value Reference Range Comments WHITE BLOOD CELL COUNT (BEAKER) (test code = 9.1 K/ L 3.5 -10.5 775) RED BLOOD CELL COUNT (BEAKER) (test code = 761) 3.27 M/ L 4.63-6.08 HEMOGLOBIN (BEAKER) (test code = 410) 10.9 GM/DL 13.7-17.5 HEMATOCRIT (BEAKER) (test code = 411) 33.0 % 40.1-51.0 MEAN CORPUSCULAR VOLUME (BEAKER) (test code = 100.9 fL 79 .0-92.2 753) MEAN CORPUSCULAR HEMOGLOBIN (BEAKER) (test code 33.3 pg 25.7-32.2 = 751) MEAN CORPUSCULAR HEMOGLOBIN CONC (BEAKER) (test 33.0 GM/DL 32.3-36.5 code = 752) RED CELL DISTRIBUTION WIDTH (BEAKER) (test code 15.6 % 11.6-14.4 = 412) PLATELET COUNT (BEAKER) (test code = 756) 140 K/CU MM 150-45 0 MEAN PLATELET VOLUME (BEAKER) (test code = 754) 9.3 fL 9.4-12.4 NUCLEATED RED BLOOD CELLS (BEAKER) (test code = 0 /100 WBC 0-0 413) NEUTROPHILS RELATIVE PERCENT (BEAKER) (test code 80 % = 429) LYMPHOCYTES RELATIVE PERCENT (BEAKER) (test code 9 % = 430) MONOCYTES RELATIVE PERCENT (BEAKER) (test code = 10 % 431) EOSINOPHILS RELATIVE PERCENT (BEAKER) (test code 0 % = 432) BASOPHILS RELATIVE PERCENT (BEAKER) (test code = 0 % 437) NEUTROPHILS ABSOLUTE COUNT (BEAKER) (test code = 7.26 K/ L 1.78-5.38 670) LYMPHOCYTES ABSOLUTE COUNT (BEAKER) (test code = 0.82 K/ L 1.32-3.57 414) MONOCYTES ABSOLUTE COUNT (BEAKER) (test code = 0.94 K/ L 0 .30-0.82 415) EOSINOPHILS ABSOLUTE COUNT (BEAKER) (test code = 0.01 K/ L 0.04-0.54 416) BASOPHILS ABSOLUTE COUNT (BEAKER) (test code = 0.01 K/ L 0 .01-0.08 417) IMMATURE GRANULOCYTES-RELATIVE PERCENT (BEAKER) 1 % 0-1 (test code = 2801) [id number] 20:33:00 Test Item Value Reference Range Comments PARTIAL THROMBOPLASTIN TIME (BEAKER) (test code 87.6 seconds 22.5-36.0 = 760) POCT-GLUCOSE [id number] 19:30:00 Test Item Value Reference Range Comments POC-GLUCOSE METER (BEAKER) 112 mg/dL 70-110 TESTE D AT [facility] [address] [facility] (test code = 1538) [place] [address] [id number] 13:55:00 Test Item Value Reference Range Comments PARTIAL THROMBOPLASTIN TIME (BEAKER) (test code 85.9 seconds 22.5-36.0 = 760) POCT-GLUCOSE [id number] 09:12:00 Test Item Value Reference Range Comments POC-GLUCOSE METER (BEAKER) 112 mg/dL 70-110 TESTE D AT [address] (test code = 1538) [place] [address] BASIC METABOLIC [id number] 08:53:00 Test Item Value Reference Range Comments SODIUM (BEAKER) (test 134 meq/L 136-145 code = 381) POTASSIUM (BEAKER) (test 3.8 meq/L 3.5-5.1 code = 379) CHLORIDE (BEAKER) (test 96 meq/L 98-107 code = 382) CO2 (BEAKER) (test code = 23 meq/L 22-29 355) BLOOD UREA NITROGEN 81 mg/dL 7-21 (BEAKER) (test code = 354) CREATININE (BEAKER) (test 7.04 mg/dL 0.57-1.25 code = 358) GLUCOSE RANDOM (BEAKER) 122 mg/dL 70-105 (test code = 652) CALCIUM (BEAKER) (test 9.0 mg/dL 8.4-10.2 code = 697) EGFR (BEAKER) (test code 10 mL/min/1.73 sq m EST IMATED GFR IS NOT = 1092) ACCURATE CREA TININE CLEARANCE IN PRE DICTING GLOMERULAR FILTR ATION RATE. ESTIMATED GFR IS NOT APPLICABLE F OR DIALYSIS PATIENT S. [id number] 06:04:00 Test Item Value Reference Range Comments PARTIAL THROMBOPLASTIN TIME (BEAKER) (test 105.5 seconds 22.5- 36.0 code = 760) PROTHROMBIN [id number] 05:44:00 Test Item Value Reference Range Comments PROTIME (BEAKER) (test code = 759) 17.9 seconds 11.7-14.7 INR (BEAKER) (test code = 370) 1.5 <=5.9 RECOMMENDED COUMADIN/WARFARIN INR THERAPY RANGESSTANDARD DOSE: 2.0 - 3.0 Includes: PROPHYLAXIS forvenous thrombosis, systemic embolization; TREATMENT for venous thrombosis and/or pulmonary embolus.HIGH RISK: Target INR is 2.5-3.5 for patients with mechanical heart valves.CBC W/PLT COUNT & AUTO DIFFERENTIAL 2018-12-06 05:22:00 Test Item Value Reference Range Comments WHITE BLOOD CELL COUNT (BEAKER) (test code = 9.4 K/ L 3.5 -10.5 775) RED BLOOD CELL COUNT (BEAKER) (test code = 761) 3.41 M/ L 4.63-6.08 HEMOGLOBIN (BEAKER) (test code = 410) 11.2 GM/DL 13.7-17.5 HEMATOCRIT (BEAKER) (test code = 411) 34.7 % 40.1-51.0 MEAN CORPUSCULAR VOLUME (BEAKER) (test code = 101.8 fL 79 .0-92.2 753) MEAN CORPUSCULAR HEMOGLOBIN (BEAKER) (test code 32.8 pg 25.7-32.2 = 751) MEAN CORPUSCULAR HEMOGLOBIN CONC (BEAKER) (test 32.3 GM/DL 32.3-36.5 code = 752) RED CELL DISTRIBUTION WIDTH (BEAKER) (test code 15.5 % 11.6-14.4 = 412) PLATELET COUNT (BEAKER) (test code = 756) 150 K/CU MM 150-45 0 MEAN PLATELET VOLUME (BEAKER) (test code = 754) 8.7 fL 9.4-12.4 NUCLEATED RED BLOOD CELLS (BEAKER) (test code = 0 /100 WBC 0-0 413) NEUTROPHILS RELATIVE PERCENT (BEAKER) (test code 78 % = 429) LYMPHOCYTES RELATIVE PERCENT (BEAKER) (test code 10 % = 430) MONOCYTES RELATIVE PERCENT (BEAKER) (test code = 11 % 431) EOSINOPHILS RELATIVE PERCENT (BEAKER) (test code 0 % = 432) BASOPHILS RELATIVE PERCENT (BEAKER) (test code = 0 % 437) NEUTROPHILS ABSOLUTE COUNT (BEAKER) (test code = 7.28 K/ L 1.78-5.38 670) LYMPHOCYTES ABSOLUTE COUNT (BEAKER) (test code = 0.94 K/ L 1.32-3.57 414) MONOCYTES ABSOLUTE COUNT (BEAKER) (test code = 1.04 K/ L 0 .30-0.82 415) EOSINOPHILS ABSOLUTE COUNT (BEAKER) (test code = 0.02 K/ L 0.04-0.54 416) BASOPHILS ABSOLUTE COUNT (BEAKER) (test code = 0.01 K/ L 0 .01-0.08 417) IMMATURE GRANULOCYTES-RELATIVE PERCENT (BEAKER) 1 % 0-1 (test code = 2801) CT, CHEST, WITHOUT [id number] 03:17:00FINAL REPORT EXAM: CT of the chest, [...] left pleural effusion with associated compressive atelectasis. Cyhzo-br-kvngnoct loculated right pleural effusion with pleural thickening [...] Correlate clinically.Moderate left pleural effusion with associated c ompressive atelectasis.Right lower lobe subsegmental and round atelectasis.Mild mediastinal lymphadenopathy nonspecific, similar to prior exam. Attention to follow up is recommendedCardiomegaly. Signed: Raz Taylorort Verified Date/Time: 12/06/2018 03:17:03 Reading Location: [facility] B1 C013Y CT Body Reading Room POCT-GLUCOSE [id number] 21:22:00 Test Item Value Reference Range Comments POC-GLUCOSE METER (BEAKER) 171 mg/dL 70-110 TESTE D AT [address] (test code = 1538) [place] [address] POCT-GLUCOSE [id number] 17:58:00 Test Item Value Reference Range Comments POC-GLUCOSE METER (BEAKER) 128 mg/dL 70-110 TESTE D AT [address] (test code = 1538) [place] [address] POCT-GLUCOSE [id number] 13:24:00 Test Item Value Reference Range Comments POC-GLUCOSE METER (BEAKER) 129 mg/dL 70-110 TESTE D AT [address] (test code = 1538) [place] [address] LACTATE DEHYDROGENASE (LDH)2018-12-05 13:14:00 Test Item Value Reference Range Comments LACTATE DEHYDROGENASE (BEAKER) (test code = 635) 291 U/L 125-220 [id number] 13:10:00 Test Item Value Reference Range Comments PARTIAL THROMBOPLASTIN TIME (BEAKER) (test code 91.7 seconds 22.5-36.0 = 760) POCT-GLUCOSE [id number] 08:19:00 Test Item Value Reference Range Comments POC-GLUCOSE METER (BEAKER) 106 mg/dL 70-110 TESTE D AT [address] (test code = 1538) [place] [address] BASIC METABOLIC [id number] 07:05:00 Test Item Value Reference Range Comments SODIUM (BEAKER) (test 137 meq/L 136-145 code = 381) POTASSIUM (BEAKER) (test 3.7 meq/L 3.5-5.1 code = 379) CHLORIDE (BEAKER) (test 100 meq/L 98-107 code = 382) CO2 (BEAKER) (test code = 24 meq/L 22-29 355) BLOOD UREA NITROGEN 60 mg/dL 7-21 (BEAKER) (test code = 354) CREATININE (BEAKER) (test 5.57 mg/dL 0.57-1.25 code = 358) GLUCOSE RANDOM (BEAKER) 113 mg/dL 70-105 (test code = 652) CALCIUM (BEAKER) (test 9.2 mg/dL 8.4-10.2 code = 697) EGFR (BEAKER) (test code 13 mL/min/1.73 sq m EST IMATED GFR IS NOT = 1092) ACCURATE CREA TININE CLEARANCE IN PRE DICTING GLOMERULAR FILTR ATION RATE. ESTIMATED GFR IS NOT APPLICABLE F OR DIALYSIS PATIENT S. [id number] 06:32:00 Test Item Value Reference Range Comments PROTIME (BEAKER) (test code = 759) 19.8 seconds 11.7-14.7 INR (BEAKER) (test code = 370) 1.6 <=5.9 PARTIAL THROMBOPLASTIN TIME (BEAKER) (test code 76.5 seconds 22.5-36.0 = 760) RECOMMENDED COUMADIN/WARFARIN INR THERAPY RANGESSTANDARD DOSE: 2.0 - 3.0 Includes: PROPHYLAXIS forvenous thrombosis, systemic embolization; TREATMENT for venous thrombosis and/or pulmonary embolus.HIGH RISK: Target INR is 2.5-3.5 for patients with mechanical heart valves.PROTHROMBIN [id number] 06:30:00 Test Item Value Reference Range Comments PROTIME (BEAKER) (test code = 759) 19.8 seconds 11.7-14.7 INR (BEAKER) (test code = 370) 1.6 <=5.9 RECOMMENDED COUMADIN/WARFARIN INR THERAPY RANGESSTANDARD DOSE: 2.0 - 3.0 Includes: PROPHYLAXIS forvenous thrombosis, systemic embolization; TREATMENT for venous thrombosis and/or pulmonary embolus.HIGH RISK: Target INR is 2.5-3.5 for patients with mechanical heart valves.CBC W/PLT COUNT & AUTO DIFFERENTIAL 2018-12-05 06:15:00 Test Item Value Reference Range Comments WHITE BLOOD CELL COUNT (BEAKER) (test code = 7.5 K/ L 3.5 -10.5 775) RED BLOOD CELL COUNT (BEAKER) (test code = 761) 3.27 M/ L 4.63-6.08 HEMOGLOBIN (BEAKER) (test code = 410) 10.7 GM/DL 13.7-17.5 HEMATOCRIT (BEAKER) (test code = 411) 33.1 % 40.1-51.0 MEAN CORPUSCULAR VOLUME (BEAKER) (test code = 101.2 fL 79 .0-92.2 753) MEAN CORPUSCULAR HEMOGLOBIN (BEAKER) (test code 32.7 pg 25.7-32.2 = 751) MEAN CORPUSCULAR HEMOGLOBIN CONC (BEAKER) (test 32.3 GM/DL 32.3-36.5 code = 752) RED CELL DISTRIBUTION WIDTH (BEAKER) (test code 15.3 % 11.6-14.4 = 412) PLATELET COUNT (BEAKER) (test code = 756) 145 K/CU MM 150-45 0 MEAN PLATELET VOLUME (BEAKER) (test code = 754) 9.1 fL 9.4-12.4 NUCLEATED RED BLOOD CELLS (BEAKER) (test code = 0 /100 WBC 0-0 413) NEUTROPHILS RELATIVE PERCENT (BEAKER) (test code 74 % = 429) LYMPHOCYTES RELATIVE PERCENT (BEAKER) (test code 13 % = 430) MONOCYTES RELATIVE PERCENT (BEAKER) (test code = 12 % 431) EOSINOPHILS RELATIVE PERCENT (BEAKER) (test code 0 % = 432) BASOPHILS RELATIVE PERCENT (BEAKER) (test code = 0 % 437) NEUTROPHILS ABSOLUTE COUNT (BEAKER) (test code = 5.57 K/ L 1.78-5.38 670) LYMPHOCYTES ABSOLUTE COUNT (BEAKER) (test code = 0.94 K/ L 1.32-3.57 414) MONOCYTES ABSOLUTE COUNT (BEAKER) (test code = 0.91 K/ L 0 .30-0.82 415) EOSINOPHILS ABSOLUTE COUNT (BEAKER) (test code = 0.02 K/ L 0.04-0.54 416) BASOPHILS ABSOLUTE COUNT (BEAKER) (test code = 0.01 K/ L 0 .01-0.08 417) IMMATURE GRANULOCYTES-RELATIVE PERCENT (BEAKER) 1 % 0-1 (test code = 2801) [id number] 00:40:00 Test Item Value Reference Range Comments PARTIAL THROMBOPLASTIN TIME (BEAKER) (test code 63.1 seconds 22.5-36.0 = 760) POCT-GLUCOSE [id number] 00:12:00 Test Item Value Reference Range Comments POC-GLUCOSE METER (BEAKER) 124 mg/dL 70-110 TESTE D AT [facility] [address] (test code = 1538) [facility] [address] HEPATITIS B SURFACE [id number] 22:54:00 Test Item Value Reference Range Comments HEPATITIS B SURFACE ANTIGEN (2) (BEAKER) (test Nonreactive N onreactive code = 2585) For chronic HD patients, draw HBsAg with each admission then every 30 days.BODY FLUID CELL COUNT WITH [id number] 20:34:00 Test Item Value Reference Range Comments APPEARANCE FLUID (BEAKER) (test code = 510) Cloudy Dina r COLOR FLUID (BEAKER) (test code = 511) Brown Colorless , Straw RBC FLUID (BEAKER) (test code = 513) 05150 /cu mm <=1 ADJUSTED WBC FLUID (BEAKER) (test code = 1691) 330 /cu mm < =5 LINING CELLS (BEAKER) (test code = 1590) 0 /cu mm <=1 NEUTROPHILS FLUID (BEAKER) (test code = 1656) 4 % LYMPHS FLUID (BEAKER) (test code = 488) 92 % MONO/MACROPHAGE FLUID (BEAKER) (test code = 4 % 489) EOSINOPHILS FLUID (BEAKER) (test code = 491) 0 % BASO FLUID (BEAKER) (test code = 492) 0 % CONTAINER BODY FLUID (BEAKER) (test code = EDTA Tube 8843) LACTATE DEHYDROGENASE (LDH), BODY [id number] 19:43:00 Test Item Value Reference Range Comments LACTATE DEHYDROGENASE FLUID (BEAKER) 288 U/L Light's cri teria identifies (test code = 634) effusions if one or more are p re Absence of reference range indicates that normals have not been defined.Assay performance has not been validated for this type of specimen.U/S, THORACENTESIS 2018-12-04 18:00:00Laterality?->RightReason for exam:->SHORTNESS OF BREATH FINAL REPORT PROCEDURE: Ultrasound-guided thoracentesis INDICATION: 63-year-old man with shortness of breath and right pleural effusion. DESCRIPTION: After obtaining informed written consent, ultrasound scan showed a septated pleural effusion on the right. The overlying skin wasprepped and draped in the usual, sterile fashion and local 1% lidocaine anesthesia was administered.A 4 [place] catheter was advanced into the largest pocket of the septated pleural effusion and 300 ccof bloody fluid was removed. The catheter was removed without immediate complication. Samples were sent for analysis. IMPRESSION:Uncomplicated ultrasound-guided right thoracentesis with 300 cc fluid removed. Signed: Raimundo Kimeport Verified Date/Time: 12/04/2018 18:00:50 Reading Location: [facility] [id number] Ultrasound Reading Room RAD, CHEST, 1 VIEW, NON [id number] 17:23:00Reason for exam:->s/p right thoracentesisShould this be [...] abnormality. Signed: Kay Walter MDReport Verified Date/Time: 12/04/2018 17:23:06 [facility] C. DIFFICILE GDH [id number] 10:01:00 Test Item Value Reference Range Comments CDT TOXIN (test code = Negative Negative [id number]) CDT GDH ANTIGEN (test code = Positive Negative C. difficile present but toxin [id number]) not detected. I ndicates colonization wit h non-toxigenic strain or level of toxin below detectable level s. No need for enteric isolatio n. Treatment is rarely needed (o nly when strong clinical suspici on for Clostridium diff icile infection) Testing performed by [facility] Rapid Cassette Assay. For GDH, published sensitivity of the assay is 98.7% compared to cytotoxicity testing. For Toxin AB, published sensitivity is 87.8% and specificity 99.4% compared to cytotoxicity testing.Verification of kit performance was done by the [facility] Microbiology Lab prior to clinical use.[id number] 09:39:00 Test Item Value Reference Range Comments PARTIAL THROMBOPLASTIN TIME (BEAKER) (test code 79.4 seconds 22.5-36.0 = 760) OCCULT BLOOD, [id number] 05:59:00 Test Item Value Reference Range Comments FECAL OCCULT BLOOD (BEAKER) (test code = 618) Negative Ne [facility] BASIC METABOLIC [id number] 02:50:00 Test Item Value Reference Range Comments SODIUM (BEAKER) (test 138 meq/L 136-145 code = 381) POTASSIUM (BEAKER) (test 3.4 meq/L 3.5-5.1 code = 379) CHLORIDE (BEAKER) (test 98 meq/L 98-107 code = 382) CO2 (BEAKER) (test code = 25 meq/L 22-29 355) BLOOD UREA NITROGEN 96 mg/dL 7-21 (BEAKER) (test code = 354) CREATININE (BEAKER) (test 7.48 mg/dL 0.57-1.25 code = 358) GLUCOSE RANDOM (BEAKER) 169 mg/dL 70-105 (test code = 652) CALCIUM (BEAKER) (test 9.4 mg/dL 8.4-10.2 code = 697) EGFR (BEAKER) (test code 9 mL/min/1.73 sq m OK MATED GFR IS NOT = 1092) ACCURATE CREA TININE CLEARANCE IN PRE DICTING GLOMERULAR FILTR ATION RATE. ESTIMATED GFR IS NOT APPLICABLE F OR DIALYSIS PATIENT S. [id number] 02:50:00 Test Item Value Reference Range Comments PARTIAL THROMBOPLASTIN TIME (BEAKER) (test code 35.3 seconds 22.5-36.0 = 760) Prior to initiating heparinPROTHROMBIN TIME/[id number] 02:49:00 Test Item Value Reference Range Comments PROTIME (BEAKER) (test code = 759) 25.1 seconds 11.7-14.7 INR (BEAKER) (test code = 370) 2.3 <=5.9 RECOMMENDED COUMADIN/WARFARIN INR THERAPY RANGESSTANDARD DOSE: 2.0 - 3.0 Includes: PROPHYLAXIS forvenous thrombosis, systemic embolization; TREATMENT for venous thrombosis and/or pulmonary embolus.HIGH RISK: Target INR is 2.5-3.5 for patients with mechanical heart valves.Prior to initiating heparinTROPONIN I 2018-12-04 02:49:00 Test Item Value Reference Range Comments TROPONIN I (BEAKER) (test code = 397) 0.08 ng/mL 0.00-0.03 Troponin I (TnI) levels [...] acute neurological disease, and persistent tachyarrhythmia.HEPATIC FUNCTION [id number] 02:43:00 Test Item Value Reference Range Comments TOTAL PROTEIN (BEAKER) (test code = 770) 7.3 gm/dL 6.0-8.3 ALBUMIN (BEAKER) (test code = 1145) 3.1 g/dL 3.5-5.0 BILIRUBIN TOTAL (BEAKER) (test code = 377) 0.8 mg/dL 0.2-1 .2 BILIRUBIN DIRECT (BEAKER) (test code = 706) 0.5 mg/dL 0.1- 0.5 ALKALINE PHOSPHATASE (BEAKER) (test code = 346) 98 U/L 40-150 AST (SGOT) (BEAKER) (test code = 353) 28 U/L 5-34 ALT (SGPT) (BEAKER) (test code = 347) 37 U/L 6-55 CBC W/PLT COUNT & AUTO [id number] 02:21:00 Test Item Value Reference Range Comments WHITE BLOOD CELL COUNT (BEAKER) (test code = 8.5 K/ L 3.5 -10.5 775) RED BLOOD CELL COUNT (BEAKER) (test code = 761) 3.15 M/ L 4.63-6.08 HEMOGLOBIN (BEAKER) (test code = 410) 10.4 GM/DL 13.7-17.5 HEMATOCRIT (BEAKER) (test code = 411) 31.8 % 40.1-51.0 MEAN CORPUSCULAR VOLUME (BEAKER) (test code = 101.0 fL 79 .0-92.2 753) MEAN CORPUSCULAR HEMOGLOBIN (BEAKER) (test code 33.0 pg 25.7-32.2 = 751) MEAN CORPUSCULAR HEMOGLOBIN CONC (BEAKER) (test 32.7 GM/DL 32.3-36.5 code = 752) RED CELL DISTRIBUTION WIDTH (BEAKER) (test code 15.5 % 11.6-14.4 = 412) PLATELET COUNT (BEAKER) (test code = 756) 137 K/CU MM 150-45 0 MEAN PLATELET VOLUME (BEAKER) (test code = 754) 8.9 fL 9.4-12.4 NUCLEATED RED BLOOD CELLS (BEAKER) (test code = 0 /100 WBC 0-0 413) NEUTROPHILS RELATIVE PERCENT (BEAKER) (test code 75 % = 429) LYMPHOCYTES RELATIVE PERCENT (BEAKER) (test code 12 % = 430) MONOCYTES RELATIVE PERCENT (BEAKER) (test code = 12 % 431) EOSINOPHILS RELATIVE PERCENT (BEAKER) (test code 0 % = 432) BASOPHILS RELATIVE PERCENT (BEAKER) (test code = 0 % 437) NEUTROPHILS ABSOLUTE COUNT (BEAKER) (test code = 6.32 K/ L 1.78-5.38 670) LYMPHOCYTES ABSOLUTE COUNT (BEAKER) (test code = 1.00 K/ L 1.32-3.57 414) MONOCYTES ABSOLUTE COUNT (BEAKER) (test code = 1.01 K/ L 0 .30-0.82 415) EOSINOPHILS ABSOLUTE COUNT (BEAKER) (test code = 0.02 K/ L 0.04-0.54 416) BASOPHILS ABSOLUTE COUNT (BEAKER) (test code = 0.01 K/ L 0 .01-0.08 417) IMMATURE GRANULOCYTES-RELATIVE PERCENT (BEAKER) 2 % 0-1 (test code = 2801) POCT-GLUCOSE [id number] 21:22:00 Test Item Value Reference Range Comments POC-GLUCOSE METER (BEAKER) 192 mg/dL 70-110 TESTE D AT [facility] [address] (test code = 1538) [place] [address] TROPONIN [id number] 17:09:00 Test Item Value Reference Range Comments TROPONIN I (BEAKER) (test code = 397) 0.10 ng/mL 0.00-0.03 Troponin I (TnI) levels [...] and persistent tachyarrhythmia.RAD, CHEST, 1 VIEW, NON [id number] 15:36:00Reason for exam:->SHORTNESS OF BREATHShould this be performed at the bedside?->YesFINAL REPORT AP chest HISTORY: Shortness of breath. COMPARISON: 11/03/2017. IMPRESSION: Cardiomegaly. Mild interstitial edema. Right effusion and adjacent atelectasis. No pneumothorax. Signed: Mandy Chairez MDReport Verified Date/Time: 12/03/2018 15:36:19 Reading Location: [address] Radiology Reading Room TROPONIN [id number] 14:48:00 Test Item Value Reference Range Comments TROPONIN I (BEAKER) (test code = 397) 0.10 ng/mL 0.00-0.03 Troponin I (TnI) levels [...] disease, and persistent tachyarrhythmia.B-TYPE NATRIURETIC FACTOR (BNP) 2018-12-03 14:47:00 Test Item Value Reference Range Comments B-TYPE NATRIURETIC PEPTIDE (BEAKER) (test code = 2959 pg/mL 0-100 700) BASIC METABOLIC [id number] 14:40:00 Test Item Value Reference Range Comments SODIUM (BEAKER) (test 137 meq/L 136-145 code = 381) POTASSIUM (BEAKER) (test 3.3 meq/L 3.5-5.1 code = 379) CHLORIDE (BEAKER) (test 99 meq/L 98-107 code = 382) CO2 (BEAKER) (test code = 24 meq/L 22-29 355) BLOOD UREA NITROGEN 85 mg/dL 7-21 (BEAKER) (test code = 354) CREATININE (BEAKER) (test 6.72 mg/dL 0.57-1.25 code = 358) GLUCOSE RANDOM (BEAKER) 158 mg/dL 70-105 (test code = 652) CALCIUM (BEAKER) (test 9.7 mg/dL 8.4-10.2 code = 697) EGFR (BEAKER) (test code 10 mL/min/1.73 sq m EST IMATED GFR IS NOT = 1092) ACCURATE CREA TININE CLEARANCE IN PRE DICTING GLOMERULAR FILTR ATION RATE. ESTIMATED GFR IS NOT APPLICABLE F OR DIALYSIS PATIENT S. PT/[id number] 14:34:00 Test Item Value Reference Range Comments PROTIME (BEAKER) (test code = 759) 25.4 seconds 11.7-14.7 INR (BEAKER) (test code = 370) 2.3 <=5.9 PARTIAL THROMBOPLASTIN TIME (BEAKER) (test code 34.3 seconds 22.5-36.0 = 760) RECOMMENDED COUMADIN/WARFARIN INR THERAPY RANGESSTANDARD DOSE: 2.0 - 3.0 Includes: PROPHYLAXIS forvenous thrombosis, systemic embolization; TREATMENT for venous thrombosis and/or pulmonary embolus.HIGH RISK: Target INR is 2.5-3.5 for patients with mechanical heart valves.CBC W/PLT COUNT & AUTO DIFFERENTIAL 2018-12-03 14:25:00 Test Item Value Reference Range Comments WHITE BLOOD CELL COUNT (BEAKER) (test code = 8.5 K/ L 3.5 -10.5 775) RED BLOOD CELL COUNT (BEAKER) (test code = 761) 3.26 M/ L 4.63-6.08 HEMOGLOBIN (BEAKER) (test code = 410) 10.9 GM/DL 13.7-17.5 HEMATOCRIT (BEAKER) (test code = 411) 33.3 % 40.1-51.0 MEAN CORPUSCULAR VOLUME (BEAKER) (test code = 102.1 fL 79 .0-92.2 753) MEAN CORPUSCULAR HEMOGLOBIN (BEAKER) (test code 33.4 pg 25.7-32.2 = 751) MEAN CORPUSCULAR HEMOGLOBIN CONC (BEAKER) (test 32.7 GM/DL 32.3-36.5 code = 752) RED CELL DISTRIBUTION WIDTH (BEAKER) (test code 15.3 % 11.6-14.4 = 412) PLATELET COUNT (BEAKER) (test code = 756) 162 K/CU MM 150-45 0 MEAN PLATELET VOLUME (BEAKER) (test code = 754) 9.2 fL 9.4-12.4 NUCLEATED RED BLOOD CELLS (BEAKER) (test code = 0 /100 WBC 0-0 413) NEUTROPHILS RELATIVE PERCENT (BEAKER) (test code 74 % = 429) LYMPHOCYTES RELATIVE PERCENT (BEAKER) (test code 13 % = 430) MONOCYTES RELATIVE PERCENT (BEAKER) (test code = 11 % 431) EOSINOPHILS RELATIVE PERCENT (BEAKER) (test code 0 % = 432) BASOPHILS RELATIVE PERCENT (BEAKER) (test code = 0 % 437) NEUTROPHILS ABSOLUTE COUNT (BEAKER) (test code = 6.31 K/ L 1.78-5.38 670) LYMPHOCYTES ABSOLUTE COUNT (BEAKER) (test code = 1.07 K/ L 1.32-3.57 414) MONOCYTES ABSOLUTE COUNT (BEAKER) (test code = 0.96 K/ L 0 .30-0.82 415) EOSINOPHILS ABSOLUTE COUNT (BEAKER) (test code = 0.01 K/ L 0.04-0.54 416) BASOPHILS ABSOLUTE COUNT (BEAKER) (test code = 0.01 K/ L 0 .01-0.08 417) IMMATURE GRANULOCYTES-RELATIVE PERCENT (BEAKER) 2 % 0-1 (test code = 2801) RAD, CHEST, 2 [id number] 15:24:00Reason for Exam:->chronic Diastolic heart FailureFINAL REPORT [...] be excluded. Signed: Raimundo Kim MDReport Verified Date/Time: 11/03/2018 15:24:42 Reading Location: [address] Radiology Reading Room MISCELLANEOUS LAB [id number] 08:22:00 Test Item Value Reference Range Comments SCAN RESULT (test code = 7044457) PROTHROMBIN [id number] 08:37:00 Test Item Value Reference Range Comments PROTIME (BEAKER) (test code = 759) 24.8 seconds 11.7-14.7 INR (BEAKER) (test code = 370) 2.2 <=5.9 RECOMMENDED COUMADIN/WARFARIN INR THERAPY RANGESSTANDARD DOSE: 2.0 - 3.0 Includes: PROPHYLAXIS forvenous thrombosis, systemic embolization; TREATMENT for venous thrombosis and/or pulmonary embolus.HIGH RISK: Target INR is 2.5-3.5 for patients with mechanical heart valves.POCT-GLUCOSE [id number] 08:10:00 Test Item Value Reference Range Comments POC-GLUCOSE METER (BEAKER) 89 mg/dL 70-110 TESTE D AT [facility] [address] [facility] (test code = 1538) [facility] 77 [address] BASIC METABOLIC [id number] 06:29:00 Test Item Value Reference Range Comments SODIUM (BEAKER) (test 134 meq/L 136-145 code = 381) POTASSIUM (BEAKER) (test 4.2 meq/L 3.5-5.1 code = 379) CHLORIDE (BEAKER) (test 97 meq/L 98-107 code = 382) CO2 (BEAKER) (test code = 29 meq/L 22-29 355) BLOOD UREA NITROGEN 22 mg/dL 7-21 (BEAKER) (test code = 354) CREATININE (BEAKER) (test 5.61 mg/dL 0.57-1.25 code = 358) GLUCOSE RANDOM (BEAKER) 87 mg/dL 70-105 (test code = 652) CALCIUM (BEAKER) (test 9.0 mg/dL 8.4-10.2 code = 697) EGFR (BEAKER) (test code 13 mL/min/1.73 sq m EST IMATED GFR IS NOT = 1092) ACCURATE CREA TININE CLEARANCE IN PRE DICTING GLOMERULAR FILTR ATION RATE. ESTIMATED GFR IS NOT APPLICABLE F OR DIALYSIS PATIENT S. [id number] 06:28:00 Test Item Value Reference Range Comments MAGNESIUM (BEAKER) (test code = 627) 1.8 mg/dL 1.6-2.6 [id number] 06:14:00 Test Item Value Reference Range Comments PARTIAL THROMBOPLASTIN TIME (BEAKER) (test code 64.7 seconds 22.5-36.0 = 760) CBC W/PLT COUNT & AUTO [id number] 05:58:00 Test Item Value Reference Range Comments WHITE BLOOD CELL COUNT (BEAKER) (test code = 5.4 K/ L 3.5 -10.5 775) RED BLOOD CELL COUNT (BEAKER) (test code = 761) 3.28 M/ L 4.63-6.08 HEMOGLOBIN (BEAKER) (test code = 410) 10.7 GM/DL 13.7-17.5 HEMATOCRIT (BEAKER) (test code = 411) 32.8 % 40.1-51.0 MEAN CORPUSCULAR VOLUME (BEAKER) (test code = 100.0 fL 79 .0-92.2 753) MEAN CORPUSCULAR HEMOGLOBIN (BEAKER) (test code 32.6 pg 25.7-32.2 = 751) MEAN CORPUSCULAR HEMOGLOBIN CONC (BEAKER) (test 32.6 GM/DL 32.3-36.5 code = 752) RED CELL DISTRIBUTION WIDTH (BEAKER) (test code 14.3 % 11.6-14.4 = 412) PLATELET COUNT (BEAKER) (test code = 756) 121 K/CU MM 150-45 0 MEAN PLATELET VOLUME (BEAKER) (test code = 754) 9.0 fL 9.4-12.4 NUCLEATED RED BLOOD CELLS (BEAKER) (test code = 0 /100 WBC 0-0 413) NEUTROPHILS RELATIVE PERCENT (BEAKER) (test code 64 % = 429) LYMPHOCYTES RELATIVE PERCENT (BEAKER) (test code 18 % = 430) MONOCYTES RELATIVE PERCENT (BEAKER) (test code = 15 % 431) EOSINOPHILS RELATIVE PERCENT (BEAKER) (test code 2 % = 432) BASOPHILS RELATIVE PERCENT (BEAKER) (test code = 1 % 437) NEUTROPHILS ABSOLUTE COUNT (BEAKER) (test code = 3.45 K/ L 1.78-5.38 670) LYMPHOCYTES ABSOLUTE COUNT (BEAKER) (test code = 0.96 K/ L 1.32-3.57 414) MONOCYTES ABSOLUTE COUNT (BEAKER) (test code = 0.78 K/ L 0 .30-0.82 415) EOSINOPHILS ABSOLUTE COUNT (BEAKER) (test code = 0.11 K/ L 0.04-0.54 416) BASOPHILS ABSOLUTE COUNT (BEAKER) (test code = 0.03 K/ L 0 .01-0.08 417) IMMATURE GRANULOCYTES-RELATIVE PERCENT (BEAKER) 1 % 0-1 (test code = 2801) POCT-GLUCOSE [id number] 21:14:00 Test Item Value Reference Range Comments POC-GLUCOSE METER (BEAKER) 135 mg/dL 70-110 TESTE D AT [address] (test code = 1538) [place] [id number] [id number] 19:36:00 Test Item Value Reference Range Comments PARTIAL THROMBOPLASTIN TIME (BEAKER) (test code 88.6 seconds 22.5-36.0 = 760) POCT-GLUCOSE [id number] 18:27:00 Test Item Value Reference Range Comments POC-GLUCOSE METER (BEAKER) 88 mg/dL 70-110 TESTE D AT [address] (test code = 1538) [place] [address] POCT-GLUCOSE [id number] 12:05:00 Test Item Value Reference Range Comments POC-GLUCOSE METER (BEAKER) 92 mg/dL 70-110 TESTE D AT [address] (test code = 1538) [place] [address] [id number] 11:46:00 Test Item Value Reference Range Comments PARTIAL THROMBOPLASTIN TIME (BEAKER) (test code 74.3 seconds 22.5-36.0 = 760) POCT-GLUCOSE [id number] 10:36:00 Test Item Value Reference Range Comments POC-GLUCOSE METER (BEAKER) 101 mg/dL 70-110 TESTE D AT [facility] [address] (test code = 1538) [facility] 77 [address]30 POCT-GLUCOSE [id number] 07:10:00 Test Item Value Reference Range Comments POC-GLUCOSE METER (BEAKER) 92 mg/dL 70-110 TESTE D AT [facility] [address] [facility] (test code = 1538) [facility] 77 [address]30 PROTHROMBIN [id number] 01:41:00 Test Item Value Reference Range Comments PROTIME (BEAKER) (test code = 759) 22.8 seconds 11.7-14.7 INR (BEAKER) (test code = 370) 2.0 <=5.9 RECOMMENDED COUMADIN/WARFARIN INR THERAPY RANGESSTANDARD DOSE: 2.0 - 3.0 Includes: PROPHYLAXIS forvenous thrombosis, systemic embolization; TREATMENT for venous thrombosis and/or pulmonary embolus.HIGH RISK: Target INR is 2.5-3.5 for patients with mechanical heart valves.While on warfarin.[id number] 01:41:00 Test Item Value Reference Range Comments PARTIAL THROMBOPLASTIN TIME (BEAKER) (test code 52.3 seconds 22.5-36.0 = 760) While on warfarin.BASIC METABOLIC [id number] 01:37:00 Test Item Value Reference Range Comments SODIUM (BEAKER) (test 134 meq/L 136-145 code = 381) POTASSIUM (BEAKER) (test 4.6 meq/L 3.5-5.1 code = 379) CHLORIDE (BEAKER) (test 99 meq/L 98-107 code = 382) CO2 (BEAKER) (test code = 24 meq/L 22-29 355) BLOOD UREA NITROGEN 35 mg/dL 7-21 (BEAKER) (test code = 354) CREATININE (BEAKER) (test 7.31 mg/dL 0.57-1.25 code = 358) GLUCOSE RANDOM (BEAKER) 87 mg/dL 70-105 (test code = 652) CALCIUM (BEAKER) (test 9.2 mg/dL 8.4-10.2 code = 697) EGFR (BEAKER) (test code 9 mL/min/1.73 sq m OK MATED GFR IS NOT = 1092) ACCURATE CREA TININE CLEARANCE IN PRE DICTING GLOMERULAR FILTR ATION RATE. ESTIMATED GFR IS NOT APPLICABLE F OR DIALYSIS PATIENT S. [id number] 01:32:00 Test Item Value Reference Range Comments MAGNESIUM (BEAKER) (test code = 627) 1.8 mg/dL 1.6-2.6 CBC W/PLT COUNT & AUTO [id number] 01:18:00 Test Item Value Reference Range Comments WHITE BLOOD CELL COUNT (BEAKER) (test code = 6.7 K/ L 3.5 -10.5 775) RED BLOOD CELL COUNT (BEAKER) (test code = 761) 3.38 M/ L 4.63-6.08 HEMOGLOBIN (BEAKER) (test code = 410) 10.9 GM/DL 13.7-17.5 HEMATOCRIT (BEAKER) (test code = 411) 33.6 % 40.1-51.0 MEAN CORPUSCULAR VOLUME (BEAKER) (test code = 99.4 fL 79 .0-92.2 753) MEAN CORPUSCULAR HEMOGLOBIN (BEAKER) (test code 32.2 pg 25.7-32.2 = 751) MEAN CORPUSCULAR HEMOGLOBIN CONC (BEAKER) (test 32.4 GM/DL 32.3-36.5 code = 752) RED CELL DISTRIBUTION WIDTH (BEAKER) (test code 14.1 % 11.6-14.4 = 412) PLATELET COUNT (BEAKER) (test code = 756) 160 K/CU MM 150-45 0 MEAN PLATELET VOLUME (BEAKER) (test code = 754) 9.0 fL 9.4-12.4 NUCLEATED RED BLOOD CELLS (BEAKER) (test code = 0 /100 WBC 0-0 413) NEUTROPHILS RELATIVE PERCENT (BEAKER) (test code 70 % = 429) LYMPHOCYTES RELATIVE PERCENT (BEAKER) (test code 15 % = 430) MONOCYTES RELATIVE PERCENT (BEAKER) (test code = 12 % 431) EOSINOPHILS RELATIVE PERCENT (BEAKER) (test code 2 % = 432) BASOPHILS RELATIVE PERCENT (BEAKER) (test code = 1 % 437) NEUTROPHILS ABSOLUTE COUNT (BEAKER) (test code = 4.66 K/ L 1.78-5.38 670) LYMPHOCYTES ABSOLUTE COUNT (BEAKER) (test code = 0.97 K/ L 1.32-3.57 414) MONOCYTES ABSOLUTE COUNT (BEAKER) (test code = 0.82 K/ L 0 .30-0.82 415) EOSINOPHILS ABSOLUTE COUNT (BEAKER) (test code = 0.16 K/ L 0.04-0.54 416) BASOPHILS ABSOLUTE COUNT (BEAKER) (test code = 0.05 K/ L 0 .01-0.08 417) IMMATURE GRANULOCYTES-RELATIVE PERCENT (BEAKER) 1 % 0-1 (test code = 2801) [id number] 23:23:00 Test Item Value Reference Range Comments PARTIAL THROMBOPLASTIN TIME (BEAKER) (test 125.2 seconds 22.5- 36.0 code = 760) POCT-GLUCOSE [id number] 21:19:00 Test Item Value Reference Range Comments POC-GLUCOSE METER (BEAKER) 165 mg/dL 70-110 TESTE D AT [address] (test code = 1538) [place] [id number] POCT-GLUCOSE [id number] 18:34:00 Test Item Value Reference Range Comments POC-GLUCOSE METER (BEAKER) 92 mg/dL 70-110 TESTE D AT [address] (test code = 1538) [place] [address] [id number] 17:17:00 Test Item Value Reference Range Comments PARTIAL THROMBOPLASTIN TIME (BEAKER) (test code 75.2 seconds 22.5-36.0 = 760) POCT-GLUCOSE [id number] 12:48:00 Test Item Value Reference Range Comments POC-GLUCOSE METER (BEAKER) 105 mg/dL 70-110 TESTE D AT [address] (test code = 1538) [place] [address] RAD, CHEST, 1 VIEW, NON [id number] 11:00:00Reason for exam:->eval right effusionShould this be performed at the bedside?->YesFINAL REPORT Comparison: 08/15/2018 TECHNIQUE: Single view of the chest FINDINGS: Small to moderate right pleural effusion is stable. Small left pleural effusion may be slightly increased. Vascular congestion seen. No other significant change. Signed: Kyle Romeeport Verified Date/Time: 08/18/2018 11:00:36 Reading Location: [facility] Radiology Reading Room Electronicallysigned by: KYLE ROME M.D. on 08/18/2018 11:00 [id number] 09:48:00 Test Item Value Reference Range Comments PARTIAL THROMBOPLASTIN TIME (BEAKER) (test code 48.8 seconds 22.5-36.0 = 760) POCT-GLUCOSE [id number] 07:37:00 Test Item Value Reference Range Comments POC-GLUCOSE METER (BEAKER) 96 mg/dL 70-110 TESTE D AT [facility] [address] [facility] (test code = 1538) [facility] 77 [address] BASIC METABOLIC [id number] 02:24:00 Test Item Value Reference Range Comments SODIUM (BEAKER) (test 136 meq/L 136-145 code = 381) POTASSIUM (BEAKER) (test 4.4 meq/L 3.5-5.1 code = 379) CHLORIDE (BEAKER) (test 99 meq/L 98-107 code = 382) CO2 (BEAKER) (test code = 26 meq/L 22-29 355) BLOOD UREA NITROGEN 29 mg/dL 7-21 (BEAKER) (test code = 354) CREATININE (BEAKER) (test 5.95 mg/dL 0.57-1.25 code = 358) GLUCOSE RANDOM (BEAKER) 96 mg/dL 70-105 (test code = 652) CALCIUM (BEAKER) (test 9.1 mg/dL 8.4-10.2 code = 697) EGFR (BEAKER) (test code 12 mL/min/1.73 sq m EST IMATED GFR IS NOT = 1092) ACCURATE CREA TININE CLEARANCE IN PRE DICTING GLOMERULAR FILTR ATION RATE. ESTIMATED GFR IS NOT APPLICABLE F OR DIALYSIS PATIENT S. [id number] 02:22:00 Test Item Value Reference Range Comments MAGNESIUM (BEAKER) (test code = 627) 1.7 mg/dL 1.6-2.6 [id number] 02:15:00 Test Item Value Reference Range Comments PARTIAL THROMBOPLASTIN TIME (BEAKER) (test code 98.9 seconds 22.5-36.0 = 760) PROTHROMBIN [id number] 02:13:00 Test Item Value Reference Range Comments PROTIME (BEAKER) (test code = 759) 21.6 seconds 11.7-14.7 INR (BEAKER) (test code = 370) 1.9 <=5.9 RECOMMENDED COUMADIN/WARFARIN INR THERAPY RANGESSTANDARD DOSE: 2.0 - 3.0 Includes: PROPHYLAXIS forvenous thrombosis, systemic embolization; TREATMENT for venous thrombosis and/or pulmonary embolus.HIGH RISK: Target INR is 2.5-3.5 for patients with mechanical heart valves.CBC W/PLT COUNT & AUTO DIFFERENTIAL 2018-08-18 02:09:00 Test Item Value Reference Range Comments WHITE BLOOD CELL COUNT (BEAKER) (test code = 6.8 K/ L 3.5 -10.5 775) RED BLOOD CELL COUNT (BEAKER) (test code = 761) 3.29 M/ L 4.63-6.08 HEMOGLOBIN (BEAKER) (test code = 410) 10.7 GM/DL 13.7-17.5 HEMATOCRIT (BEAKER) (test code = 411) 33.2 % 40.1-51.0 MEAN CORPUSCULAR VOLUME (BEAKER) (test code = 100.9 fL 79 .0-92.2 753) MEAN CORPUSCULAR HEMOGLOBIN (BEAKER) (test code 32.5 pg 25.7-32.2 = 751) MEAN CORPUSCULAR HEMOGLOBIN CONC (BEAKER) (test 32.2 GM/DL 32.3-36.5 code = 752) RED CELL DISTRIBUTION WIDTH (BEAKER) (test code 14.2 % 11.6-14.4 = 412) PLATELET COUNT (BEAKER) (test code = 756) 157 K/CU MM 150-45 0 MEAN PLATELET VOLUME (BEAKER) (test code = 754) 9.1 fL 9.4-12.4 NUCLEATED RED BLOOD CELLS (BEAKER) (test code = 0 /100 WBC 0-0 413) NEUTROPHILS RELATIVE PERCENT (BEAKER) (test code 66 % = 429) LYMPHOCYTES RELATIVE PERCENT (BEAKER) (test code 16 % = 430) MONOCYTES RELATIVE PERCENT (BEAKER) (test code = 15 % 431) EOSINOPHILS RELATIVE PERCENT (BEAKER) (test code 3 % = 432) BASOPHILS RELATIVE PERCENT (BEAKER) (test code = 1 % 437) NEUTROPHILS ABSOLUTE COUNT (BEAKER) (test code = 4.48 K/ L 1.78-5.38 670) LYMPHOCYTES ABSOLUTE COUNT (BEAKER) (test code = 1.06 K/ L 1.32-3.57 414) MONOCYTES ABSOLUTE COUNT (BEAKER) (test code = 0.99 K/ L 0 .30-0.82 415) EOSINOPHILS ABSOLUTE COUNT (BEAKER) (test code = 0.17 K/ L 0.04-0.54 416) BASOPHILS ABSOLUTE COUNT (BEAKER) (test code = 0.05 K/ L 0 .01-0.08 417) IMMATURE GRANULOCYTES-RELATIVE PERCENT (BEAKER) 1 % 0-1 (test code = 2801) POCT-GLUCOSE [id number] 21:51:00 Test Item Value Reference Range Comments POC-GLUCOSE METER (BEAKER) 98 mg/dL 70-110 TESTE D AT [address] (test code = 1538) [place] [address] [id number] 18:51:00 Test Item Value Reference Range Comments PARTIAL THROMBOPLASTIN TIME (BEAKER) (test code 56.1 seconds 22.5-36.0 = 760) [id number] 17:06:00 Test Item Value Reference Range Comments PARTIAL THROMBOPLASTIN TIME (BEAKER) (test 121.9 seconds 22.5- 36.0 code = 760) POCT-GLUCOSE [id number] 16:46:00 Test Item Value Reference Range Comments POC-GLUCOSE METER (BEAKER) 135 mg/dL 70-110 TESTE D AT [address] (test code = 1538) [place] [address] POCT-GLUCOSE [id number] 13:28:00 Test Item Value Reference Range Comments POC-GLUCOSE METER (BEAKER) 96 mg/dL 70-110 TESTE D AT [address] (test code = 1538) [place] [address] [id number] 09:15:00 Test Item Value Reference Range Comments PARTIAL THROMBOPLASTIN TIME (BEAKER) (test code 58.1 seconds 22.5-36.0 = 760) BASIC METABOLIC [id number] 07:31:00 Test Item Value Reference Range Comments SODIUM (BEAKER) (test 136 meq/L 136-145 code = 381) POTASSIUM (BEAKER) (test 4.0 meq/L 3.5-5.1 code = 379) CHLORIDE (BEAKER) (test 101 meq/L 98-107 code = 382) CO2 (BEAKER) (test code = 25 meq/L 22-29 355) BLOOD UREA NITROGEN 21 mg/dL 7-21 (BEAKER) (test code = 354) CREATININE (BEAKER) (test 4.75 mg/dL 0.57-1.25 code = 358) GLUCOSE RANDOM (BEAKER) 93 mg/dL 70-105 (test code = 652) CALCIUM (BEAKER) (test 8.9 mg/dL 8.4-10.2 code = 697) EGFR (BEAKER) (test code 15 mL/min/1.73 sq m EST IMATED GFR IS NOT = 1092) ACCURATE CREA TININE CLEARANCE IN PRE DICTING GLOMERULAR FILTR ATION RATE. ESTIMATED GFR IS NOT APPLICABLE F OR DIALYSIS PATIENT S. [id number] 07:19:00 Test Item Value Reference Range Comments PHOSPHORUS (BEAKER) (test code = 604) 3.7 mg/dL 2.3-4.7 [id number] 07:19:00 Test Item Value Reference Range Comments MAGNESIUM (BEAKER) (test code = 627) 1.7 mg/dL 1.6-2.6 [id number] 07:07:00 Test Item Value Reference Range Comments PARTIAL THROMBOPLASTIN TIME (BEAKER) (test 124.4 seconds 22.5- 36.0 code = 760) PROTHROMBIN [id number] 07:02:00 Test Item Value Reference Range Comments PROTIME (BEAKER) (test code = 759) 19.8 seconds 11.7-14.7 INR (BEAKER) (test code = 370) 1.7 <=5.9 RECOMMENDED COUMADIN/WARFARIN INR THERAPY RANGESSTANDARD DOSE: 2.0 - 3.0 Includes: PROPHYLAXIS forvenous thrombosis, systemic embolization; TREATMENT for venous thrombosis and/or pulmonary embolus.HIGH RISK: Target INR is 2.5-3.5 for patients with mechanical heart valves.While on warfarin.PROTHROMBIN TIME/INR 2018-08-17 07:02:00 Test Item Value Reference Range Comments PROTIME (BEAKER) (test code = 759) 19.8 seconds 11.7-14.7 INR (BEAKER) (test code = 370) 1.7 <=5.9 RECOMMENDED COUMADIN/WARFARIN INR THERAPY RANGESSTANDARD DOSE: 2.0 - 3.0 Includes: PROPHYLAXIS forvenous thrombosis, systemic embolization; TREATMENT for venous thrombosis and/or pulmonary embolus.HIGH RISK: Target INR is 2.5-3.5 for patients with mechanical heart valves.CBC W/PLT COUNT & AUTO DIFFERENTIAL 2018-08-17 06:53:00 Test Item Value Reference Range Comments WHITE BLOOD CELL COUNT (BEAKER) (test code = 6.3 K/ L 3.5 -10.5 775) RED BLOOD CELL COUNT (BEAKER) (test code = 761) 3.34 M/ L 4.63-6.08 HEMOGLOBIN (BEAKER) (test code = 410) 10.7 GM/DL 13.7-17.5 HEMATOCRIT (BEAKER) (test code = 411) 33.6 % 40.1-51.0 MEAN CORPUSCULAR VOLUME (BEAKER) (test code = 100.6 fL 79 .0-92.2 753) MEAN CORPUSCULAR HEMOGLOBIN (BEAKER) (test code 32.0 pg 25.7-32.2 = 751) MEAN CORPUSCULAR HEMOGLOBIN CONC (BEAKER) (test 31.8 GM/DL 32.3-36.5 code = 752) RED CELL DISTRIBUTION WIDTH (BEAKER) (test code 14.2 % 11.6-14.4 = 412) PLATELET COUNT (BEAKER) (test code = 756) 159 K/CU MM 150-45 0 MEAN PLATELET VOLUME (BEAKER) (test code = 754) 9.0 fL 9.4-12.4 NUCLEATED RED BLOOD CELLS (BEAKER) (test code = 0 /100 WBC 0-0 413) NEUTROPHILS RELATIVE PERCENT (BEAKER) (test code 67 % = 429) LYMPHOCYTES RELATIVE PERCENT (BEAKER) (test code 15 % = 430) MONOCYTES RELATIVE PERCENT (BEAKER) (test code = 14 % 431) EOSINOPHILS RELATIVE PERCENT (BEAKER) (test code 2 % = 432) BASOPHILS RELATIVE PERCENT (BEAKER) (test code = 1 % 437) NEUTROPHILS ABSOLUTE COUNT (BEAKER) (test code = 4.25 K/ L 1.78-5.38 670) LYMPHOCYTES ABSOLUTE COUNT (BEAKER) (test code = 0.96 K/ L 1.32-3.57 414) MONOCYTES ABSOLUTE COUNT (BEAKER) (test code = 0.88 K/ L 0 .30-0.82 415) EOSINOPHILS ABSOLUTE COUNT (BEAKER) (test code = 0.13 K/ L 0.04-0.54 416) BASOPHILS ABSOLUTE COUNT (BEAKER) (test code = 0.04 K/ L 0 .01-0.08 417) IMMATURE GRANULOCYTES-RELATIVE PERCENT (BEAKER) 1 % 0-1 (test code = 2801) [id number] 23:01:00 Test Item Value Reference Range Comments PARTIAL THROMBOPLASTIN TIME (BEAKER) (test code 46.5 seconds 22.5-36.0 = 760) POCT-GLUCOSE [id number] 22:45:00 Test Item Value Reference Range Comments POC-GLUCOSE METER (BEAKER) 144 mg/dL 70-110 TESTE D AT [address] (test code = 1538) [place] [address] [id number] 15:02:00 Test Item Value Reference Range Comments PARTIAL THROMBOPLASTIN TIME (BEAKER) (test code 56.1 seconds 22.5-36.0 = 760) POCT-GLUCOSE [id number] 14:39:00 Test Item Value Reference Range Comments POC-GLUCOSE METER (BEAKER) 189 mg/dL 70-110 TESTE D AT [address] (test code = 1538) [place] [address] HIV-1 PCR, [id number] 13:58:00 Test Item Value Reference Range Comments HIV-1 NUMERIC RESULT (BEAKER) (test code = 2704) 170 Cp/mL <20 This test uses a Real-Time Polymerase Chain Reaction (RT-PCR) methodology to detect a highly conserved region of the HIV-1 gag gene and was performed using the ERICH AmpliPrep/ERICH TaqMan HIV-1 test kit version 2.0 ([employer]Reportable range for this assay is 20 - 10,000,000 copies per mL (1.3 - 7.0 Log copies/mL).[id number] 12:54:00 Test Item Value Reference Range Comments PARTIAL THROMBOPLASTIN TIME (BEAKER) (test 143.6 seconds 22.5- 36.0 code = 760) [id number] 10:00:00Medical Cytology Report Case: [id number] Authorizing Provider: Alison Solano MD Collected: 08/13/2018 1803 Ordering Location: [address] Received: 08/14/2018 0923 Service Pathologist: Yamil Hamm MD Specimen: Pleural, Right RIGHT PLEURAL FLUID (CYTOSPINS AND CELL BLOCK): - NO MALIGNANT CELLS IDENTIFIED (SEE COMMENT) Signing Pathologist Direct Phone Line: [phone] signed by Yamil Hamm MD on 08/16/2018 [...] cells;while TTF1 and MOC31 are predominantly negative. Clinical/radiological correlation is recommended. If clinically discordant, repeat thoracentesis may be considered when fluid reaccumulates. 72694, 12526, 89509, 72882 x 2Left pleural effusion, history of AIDS, Kaposi's sarcoma, hepatitis C.RIGHT PLEURAL FLUID 300 mls bloody; 4 cytospins, cell blockCollected: [id number]: [id number] interpretation of this case included the use of immunohistochemistry or special stains. Please see the immunohistochemistry results in the COMMENT section. Immunohistochemistry technical testing was performed at [facility], Pathology Laboratory where it was developed [...] as qualified toperform high complexity clinical laboratory testing.[facility], Department of Pathology, [address] [place] [id number], [facility], [facility] of [facility], [address] [place] [address], [facility], [facility] of [facility]ology, [address] [place] [address], JJPB-GLUCOSE [id number] 08:29:00 Test Item Value Reference Range Comments POC-GLUCOSE METER (BEAKER) 96 mg/dL 70-110 TESTE D AT [address] (test code = 1538) [facility] [address] BODY FLUID CULTURE + GRAM [id number] 07:54:00 Test Item Value Reference Range Comments CULTURE (BEAKER) (test code = 1095) No growth GRAM STAIN RESULT (BEAKER) (test code = <1+ WBCs 1123) GRAM STAIN RESULT (BEAKER) (test code = No organisms seen 14313) BASIC METABOLIC [id number] 06:30:00 Test Item Value Reference Range Comments SODIUM (BEAKER) (test 132 meq/L 136-145 code = 381) POTASSIUM (BEAKER) (test 4.0 meq/L 3.5-5.1 code = 379) CHLORIDE (BEAKER) (test 99 meq/L 98-107 code = 382) CO2 (BEAKER) (test code = 21 meq/L 22-29 355) BLOOD UREA NITROGEN 41 mg/dL 7-21 (BEAKER) (test code = 354) CREATININE (BEAKER) (test 6.80 mg/dL 0.57-1.25 code = 358) GLUCOSE RANDOM (BEAKER) 95 mg/dL 70-105 (test code = 652) CALCIUM (BEAKER) (test 8.7 mg/dL 8.4-10.2 code = 697) EGFR (BEAKER) (test code 10 mL/min/1.73 sq m EST IMATED GFR IS NOT = 1092) ACCURATE CREA TININE CLEARANCE IN PRE DICTING GLOMERULAR FILTR ATION RATE. ESTIMATED GFR IS NOT APPLICABLE F OR DIALYSIS PATIENT S. [id number] 06:26:00 Test Item Value Reference Range Comments MAGNESIUM (BEAKER) (test code = 627) 1.6 mg/dL 1.6-2.6 [id number] 05:48:00 Test Item Value Reference Range Comments PARTIAL THROMBOPLASTIN TIME (BEAKER) (test code 80.3 seconds 22.5-36.0 = 760) While on warfarin.PROTHROMBIN [id number] 05:46:00 Test Item Value Reference Range Comments PROTIME (BEAKER) (test code = 759) 18.4 seconds 11.7-14.7 INR (BEAKER) (test code = 370) 1.5 <=5.9 RECOMMENDED COUMADIN/WARFARIN INR THERAPY RANGESSTANDARD DOSE: 2.0 - 3.0 Includes: PROPHYLAXIS forvenous thrombosis, systemic embolization; TREATMENT for venous thrombosis and/or pulmonary embolus.HIGH RISK: Target INR is 2.5-3.5 for patients with mechanical heart valves.While on warfarin.CBC W/PLT COUNT & AUTO [id number] 05:28:00 Test Item Value Reference Range Comments WHITE BLOOD CELL COUNT (BEAKER) (test code = 7.8 K/ L 3.5 -10.5 775) RED BLOOD CELL COUNT (BEAKER) (test code = 761) 3.27 M/ L 4.63-6.08 HEMOGLOBIN (BEAKER) (test code = 410) 10.5 GM/DL 13.7-17.5 HEMATOCRIT (BEAKER) (test code = 411) 33.2 % 40.1-51.0 MEAN CORPUSCULAR VOLUME (BEAKER) (test code = 101.5 fL 79 .0-92.2 753) MEAN CORPUSCULAR HEMOGLOBIN (BEAKER) (test code 32.1 pg 25.7-32.2 = 751) MEAN CORPUSCULAR HEMOGLOBIN CONC (BEAKER) (test 31.6 GM/DL 32.3-36.5 code = 752) RED CELL DISTRIBUTION WIDTH (BEAKER) (test code 13.8 % 11.6-14.4 = 412) PLATELET COUNT (BEAKER) (test code = 756) 155 K/CU MM 150-45 0 MEAN PLATELET VOLUME (BEAKER) (test code = 754) 9.0 fL 9.4-12.4 NUCLEATED RED BLOOD CELLS (BEAKER) (test code = 0 /100 WBC 0-0 413) NEUTROPHILS RELATIVE PERCENT (BEAKER) (test code 71 % = 429) LYMPHOCYTES RELATIVE PERCENT (BEAKER) (test code 13 % = 430) MONOCYTES RELATIVE PERCENT (BEAKER) (test code = 13 % 431) EOSINOPHILS RELATIVE PERCENT (BEAKER) (test code 2 % = 432) BASOPHILS RELATIVE PERCENT (BEAKER) (test code = 1 % 437) NEUTROPHILS ABSOLUTE COUNT (BEAKER) (test code = 5.49 K/ L 1.78-5.38 670) LYMPHOCYTES ABSOLUTE COUNT (BEAKER) (test code = 1.00 K/ L 1.32-3.57 414) MONOCYTES ABSOLUTE COUNT (BEAKER) (test code = 1.03 K/ L 0 .30-0.82 415) EOSINOPHILS ABSOLUTE COUNT (BEAKER) (test code = 0.16 K/ L 0.04-0.54 416) BASOPHILS ABSOLUTE COUNT (BEAKER) (test code = 0.05 K/ L 0 .01-0.08 417) IMMATURE GRANULOCYTES-RELATIVE PERCENT (BEAKER) 1 % 0-1 (test code = 2801) [id number] 22:09:00 Test Item Value Reference Range Comments PARTIAL THROMBOPLASTIN TIME (BEAKER) (test code 61.5 seconds 22.5-36.0 = 760) RAD, CHEST, 1 VIEW, NON [id number] 20:20:00Reason for exam:->eval right effusionShould this be [...] Anderson Verified Date/Time: 08/15/2018 20:20:24 Reading Location: [facility] Radiology Reading Room POCT-GLUCOSE [id number] 19:05:00 Test Item Value Reference Range Comments POC-GLUCOSE METER (BEAKER) 87 mg/dL 70-110 TESTE D AT [address] (test code = 1538) [place] [id number] POCT-GLUCOSE [id number] 13:12:00 Test Item Value Reference Range Comments POC-GLUCOSE METER (BEAKER) 162 mg/dL 70-110 TESTE D AT [facility] [address] [facility] (test code = 1538) [place] [id number] [id number] 12:48:00 Test Item Value Reference Range Comments PARTIAL THROMBOPLASTIN TIME (BEAKER) (test code 89.1 seconds 22.5-36.0 = 760) POCT-GLUCOSE [id number] 09:58:00 Test Item Value Reference Range Comments POC-GLUCOSE METER (BEAKER) 229 mg/dL 70-110 TESTE D AT [facility] [address] [facility] (test code = 1538) [place] [id number] BASIC METABOLIC [id number] 05:40:00 Test Item Value Reference Range Comments SODIUM (BEAKER) (test 137 meq/L 136-145 code = 381) POTASSIUM (BEAKER) (test 3.6 meq/L 3.5-5.1 code = 379) CHLORIDE (BEAKER) (test 102 meq/L 98-107 code = 382) CO2 (BEAKER) (test code = 25 meq/L 22-29 355) BLOOD UREA NITROGEN 28 mg/dL 7-21 (BEAKER) (test code = 354) CREATININE (BEAKER) (test 5.36 mg/dL 0.57-1.25 code = 358) GLUCOSE RANDOM (BEAKER) 114 mg/dL 70-105 (test code = 652) CALCIUM (BEAKER) (test 8.6 mg/dL 8.4-10.2 code = 697) EGFR (BEAKER) (test code 13 mL/min/1.73 sq m EST IMATED GFR IS NOT = 1092) ACCURATE CREA TININE CLEARANCE IN PRE DICTING GLOMERULAR FILTR ATION RATE. ESTIMATED GFR IS NOT APPLICABLE F OR DIALYSIS PATIENT S. CBC W/PLT COUNT & AUTO [id number] 05:38:00 Test Item Value Reference Range Comments WHITE BLOOD CELL COUNT (BEAKER) (test code = 6.9 K/ L 3.5 -10.5 775) RED BLOOD CELL COUNT (BEAKER) (test code = 761) 3.13 M/ L 4.63-6.08 HEMOGLOBIN (BEAKER) (test code = 410) 10.3 GM/DL 13.7-17.5 HEMATOCRIT (BEAKER) (test code = 411) 32.2 % 40.1-51.0 MEAN CORPUSCULAR VOLUME (BEAKER) (test code = 102.9 fL 79 .0-92.2 753) MEAN CORPUSCULAR HEMOGLOBIN (BEAKER) (test code 32.9 pg 25.7-32.2 = 751) MEAN CORPUSCULAR HEMOGLOBIN CONC (BEAKER) (test 32.0 GM/DL 32.3-36.5 code = 752) RED CELL DISTRIBUTION WIDTH (BEAKER) (test code 14.0 % 11.6-14.4 = 412) PLATELET COUNT (BEAKER) (test code = 756) 140 K/CU MM 150-45 0 MEAN PLATELET VOLUME (BEAKER) (test code = 754) 9.0 fL 9.4-12.4 NUCLEATED RED BLOOD CELLS (BEAKER) (test code = 0 /100 WBC 0-0 413) NEUTROPHILS RELATIVE PERCENT (BEAKER) (test code 67 % = 429) LYMPHOCYTES RELATIVE PERCENT (BEAKER) (test code 14 % = 430) MONOCYTES RELATIVE PERCENT (BEAKER) (test code = 16 % 431) EOSINOPHILS RELATIVE PERCENT (BEAKER) (test code 1 % = 432) BASOPHILS RELATIVE PERCENT (BEAKER) (test code = 1 % 437) NEUTROPHILS ABSOLUTE COUNT (BEAKER) (test code = 4.63 K/ L 1.78-5.38 670) LYMPHOCYTES ABSOLUTE COUNT (BEAKER) (test code = 0.96 K/ L 1.32-3.57 414) MONOCYTES ABSOLUTE COUNT (BEAKER) (test code = 1.13 K/ L 0 .30-0.82 415) EOSINOPHILS ABSOLUTE COUNT (BEAKER) (test code = 0.10 K/ L 0.04-0.54 416) BASOPHILS ABSOLUTE COUNT (BEAKER) (test code = 0.05 K/ L 0 .01-0.08 417) IMMATURE GRANULOCYTES-RELATIVE PERCENT (BEAKER) 0 % 0-1 (test code = 2801) [id number] 05:28:00 Test Item Value Reference Range Comments MAGNESIUM (BEAKER) (test code = 627) 1.8 mg/dL 1.6-2.6 [id number] 04:47:00 Test Item Value Reference Range Comments PARTIAL THROMBOPLASTIN TIME (BEAKER) (test code 60.9 seconds 22.5-36.0 = 760) PROTHROMBIN [id number] 04:46:00 Test Item Value Reference Range Comments PROTIME (BEAKER) (test code = 759) 17.9 seconds 11.7-14.7 INR (BEAKER) (test code = 370) 1.5 <=5.9 RECOMMENDED COUMADIN/WARFARIN INR THERAPY RANGESSTANDARD DOSE: 2.0 - 3.0 Includes: PROPHYLAXIS forvenous thrombosis, systemic embolization; TREATMENT for venous thrombosis and/or pulmonary embolus.HIGH RISK: Target INR is 2.5-3.5 for patients with mechanical heart valves.[id number] 20:56:00 Test Item Value Reference Range Comments PARTIAL THROMBOPLASTIN TIME (BEAKER) (test code 52.1 seconds 22.5-36.0 = 760) CT, CHEST, WITHOUT [id number] 19:06:00S/p fall in Jul--> right effusion, tapped twice. ESRD, HIV, Diastolic dysfunctionFINAL REPORT CT scan of the chest: CLINICAL HISTORY: Recurrent right pleural e ffusion Comparison exam: Chest x-ray 08/13/2018 TECHNIQUE: CT [...] nonspecific right paratracheal mediastinal lymph node. Signed: Omessi, Louie MDReport Verified Date/Time: 08/14/2018 19:06:09 Reading Location: [address] Reading Room APTT 2018-08-14 12:40:00 Test Item Value Reference Range Comments PARTIAL THROMBOPLASTIN TIME (BEAKER) (test code 48.4 seconds 22.5-36.0 = 760) CD4 T CELL [id number] 11:15:00 Test Item Value Reference Range Comments TOTAL LYMPHOCYTES FC (BEAKER) (test code = 3477) 935 /cu mm CD3+ TOTAL T CELLS % FC (BEAKER) (test code = 78 % 49 -84 3478) CD3+ TOTAL T CELLS ABSOLUTE FC (BEAKER) (test 726 /cu mm 60 3-2,990 code = 3479) CD3+/CD8+ T SUPPRESSOR CELLS % FC (BEAKER) (test 33 % 10-40 code = 3480) CD3+/CD8+ T SUPPRESSOR CELLS ABS FC (BEAKER) 309 /cu mm 125 -1,312 (test code = 3481) CD3+/CD4+ T HELPER CELLS % FC (BEAKER) (test code 43 % 28-63 = 3482) CD3+/CD4+ T HELPER CELLS ABS FC (BEAKER) (test 399 /cu mm 4 41-2,156 code = 3483) CD4/CD8 RATIO FC (BEAKER) (test code = 2127) 1.29 0.7 0-3.23 CD16+/CD56+ NATURAL KILLER CELLS % FC (BEAKER) 11 % 4 -25 (test code = 3488) CD16+/CD56+ NATURAL KILLER CELLS ABS FC (BEAKER) 107 /cu mm 95-640 (test code = 3489) CD19+ TOTAL B CELLS % FC (BEAKER) (test code = 11 % 6 -27 3490) CD19+ TOTAL B CELLS ABS FC (BEAKER) (test code = 101 /cu mm 122-719 4409) [id number] 10:48:00 Test Item Value Reference Range Comments PHOSPHORUS (BEAKER) (test code = 604) 5.2 mg/dL 2.3-4.7 BASIC METABOLIC [id number] 07:13:00 Test Item Value Reference Range Comments SODIUM (BEAKER) (test 132 meq/L 136-145 code = 381) POTASSIUM (BEAKER) (test 3.6 meq/L 3.5-5.1 code = 379) CHLORIDE (BEAKER) (test 94 meq/L 98-107 code = 382) CO2 (BEAKER) (test code = 24 meq/L 22-29 355) BLOOD UREA NITROGEN 49 mg/dL 7-21 (BEAKER) (test code = 354) CREATININE (BEAKER) (test 7.61 mg/dL 0.57-1.25 code = 358) GLUCOSE RANDOM (BEAKER) 99 mg/dL 70-105 (test code = 652) CALCIUM (BEAKER) (test 8.5 mg/dL 8.4-10.2 code = 697) EGFR (BEAKER) (test code 9 mL/min/1.73 sq m OK MATED GFR IS NOT = 1092) ACCURATE CREA TININE CLEARANCE IN PRE DICTING GLOMERULAR FILTR ATION RATE. ESTIMATED GFR IS NOT APPLICABLE F OR DIALYSIS PATIENT S. [id number] 07:11:00 Test Item Value Reference Range Comments MAGNESIUM (BEAKER) (test code = 627) 1.8 mg/dL 1.6-2.6 [id number] 07:00:00 Test Item Value Reference Range Comments PARTIAL THROMBOPLASTIN TIME (BEAKER) (test code 59.2 seconds 22.5-36.0 = 760) PROTHROMBIN TIME/[id number] 06:59:00 Test Item Value Reference Range Comments PROTIME (BEAKER) (test code = 759) 18.1 seconds 11.7-14.7 INR (BEAKER) (test code = 370) 1.5 <=5.9 RECOMMENDED COUMADIN/WARFARIN INR THERAPY RANGESSTANDARD DOSE: 2.0 - 3.0 Includes: PROPHYLAXIS forvenous thrombosis, systemic embolization; TREATMENT for venous thrombosis and/or pulmonary embolus.HIGH RISK: Target INR is 2.5-3.5 for patients with mechanical heart valves.CBC W/PLT COUNT & AUTO DIFFERENTIAL 2018-08-14 06:57:00 Test Item Value Reference Range Comments WHITE BLOOD CELL COUNT (BEAKER) (test code = 5.8 K/ L 3.5 -10.5 775) RED BLOOD CELL COUNT (BEAKER) (test code = 761) 3.20 M/ L 4.63-6.08 HEMOGLOBIN (BEAKER) (test code = 410) 10.4 GM/DL 13.7-17.5 HEMATOCRIT (BEAKER) (test code = 411) 32.1 % 40.1-51.0 MEAN CORPUSCULAR VOLUME (BEAKER) (test code = 100.3 fL 79 .0-92.2 753) MEAN CORPUSCULAR HEMOGLOBIN (BEAKER) (test code 32.5 pg 25.7-32.2 = 751) MEAN CORPUSCULAR HEMOGLOBIN CONC (BEAKER) (test 32.4 GM/DL 32.3-36.5 code = 752) RED CELL DISTRIBUTION WIDTH (BEAKER) (test code 13.8 % 11.6-14.4 = 412) PLATELET COUNT (BEAKER) (test code = 756) 139 K/CU MM 150-45 0 MEAN PLATELET VOLUME (BEAKER) (test code = 754) 9.3 fL 9.4-12.4 NUCLEATED RED BLOOD CELLS (BEAKER) (test code = 0 /100 WBC 0-0 413) NEUTROPHILS RELATIVE PERCENT (BEAKER) (test code 65 % = 429) LYMPHOCYTES RELATIVE PERCENT (BEAKER) (test code 16 % = 430) MONOCYTES RELATIVE PERCENT (BEAKER) (test code = 17 % 431) EOSINOPHILS RELATIVE PERCENT (BEAKER) (test code 2 % = 432) BASOPHILS RELATIVE PERCENT (BEAKER) (test code = 1 % 437) NEUTROPHILS ABSOLUTE COUNT (BEAKER) (test code = 3.72 K/ L 1.78-5.38 670) LYMPHOCYTES ABSOLUTE COUNT (BEAKER) (test code = 0.90 K/ L 1.32-3.57 414) MONOCYTES ABSOLUTE COUNT (BEAKER) (test code = 0.98 K/ L 0 .30-0.82 415) EOSINOPHILS ABSOLUTE COUNT (BEAKER) (test code = 0.10 K/ L 0.04-0.54 416) BASOPHILS ABSOLUTE COUNT (BEAKER) (test code = 0.04 K/ L 0 .01-0.08 417) IMMATURE GRANULOCYTES-RELATIVE PERCENT (BEAKER) 1 % 0-1 (test code = 2801) [id number] 00:30:00 Test Item Value Reference Range Comments PARTIAL THROMBOPLASTIN TIME (BEAKER) (test code 56.7 seconds 22.5-36.0 = 760) BODY FLUID CELL COUNT WITH [id number] 19:28:00 Test Item Value Reference Range Comments APPEARANCE FLUID (BEAKER) (test code = 510) Cloudy Dina r COLOR FLUID (BEAKER) (test code = 511) Red Colorless , Straw RBC FLUID (BEAKER) (test code = 513) 620[address] /cu mm <=1 ADJUSTED WBC FLUID (BEAKER) (test code = 1691) 968 /cu mm < =5 LINING CELLS (BEAKER) (test code = 1590) 0 /cu mm <=1 NEUTROPHILS FLUID (BEAKER) (test code = 1656) 18 % LYMPHS FLUID (BEAKER) (test code = 488) 61 % MONO/MACROPHAGE FLUID (BEAKER) (test code = 21 % 489) EOSINOPHILS FLUID (BEAKER) (test code = 491) 0 % BASO FLUID (BEAKER) (test code = 492) 0 % CONTAINER BODY FLUID (BEAKER) (test code = EDTA Tube 2873) ALBUMIN, BODY [id number] 18:40:00 Test Item Value Reference Range Comments ALBUMIN FLUID (BEAKER) (test code = 501) 2.1 gm/dL Reference Range: No Normals Assay performance has not been validated for this type of specimen.LACTATE DEHYDROGENASE (LDH), BODY [id number] 18:40:00 Test Item Value Reference Range Comments LACTATE DEHYDROGENASE FLUID (BEAKER) (test code = 268 U/L 634) Absence of reference range indicates that normals have not been defined.Assay performance has not been validated for this type of specimen.GLUCOSE, BODY FLUID 2018-08-13 18:40:00 Test Item Value Reference Range Comments GLUCOSE, BODY FLUID (BEAKER) (test code = 1528) 102 mg/dL Absence of reference range indicates that normals have not been defined.Assay performance has not been validated for this type of specimen.LACTATE DEHYDROGENASE (LDH)2018-08-13 18:40:00 Test Item Value Reference Range Comments LACTATE DEHYDROGENASE (BEAKER) (test code = 635) 280 U/L 125-220 HEPATIC FUNCTION [id number] 18:40:00 Test Item Value Reference Range Comments TOTAL PROTEIN (BEAKER) (test code = 770) 8.2 gm/dL 6.0-8.3 ALBUMIN (BEAKER) (test code = 1145) 3.3 g/dL 3.5-5.0 BILIRUBIN TOTAL (BEAKER) (test code = 377) 1.0 mg/dL 0.2-1 .2 BILIRUBIN DIRECT (BEAKER) (test code = 706) 0.6 mg/dL 0.1- 0.5 ALKALINE PHOSPHATASE (BEAKER) (test code = 346) 85 U/L 40-150 AST (SGOT) (BEAKER) (test code = 353) 38 U/L 5-34 ALT (SGPT) (BEAKER) (test code = 347) 32 U/L 6-55 RAD, CHEST, 1 VIEW, NON [id number] 17:56:00Reason for exam:->post Right thoracentesisShould this be performed at the bedside?->YesFINAL REPORT Chest, one view. HISTORY: Right thoracentesis COMPARISON: Radiograph from earlier today IMPRESSION: Interval decrease in size of the pleural effusion on the right which is now small. No pneumothorax. Mild right basilar subsegmental atelectasis. The cardiac silhouette is enlarged and unchanged. Prior valve replacement and atrial appendage closure. Interstitial edema. Signed: Katherine Arteaga [facility] Verified Date/Time: 08/13/2018 17:56:18 Reading Location: [address] Consult Reading Room U/S, [id number] 16:22:00Reason for exam:->shortness of breath, recurrent right pleural effusionShould this be performed at the bedside?->NoFINAL REPORT Ultrasound guided right thoracentesis, 08/13/2018. Clinical History: Right pleural effusion. Modality: Ultrasound. Sedation: None. Geriatrician: Gini. Lorry Weigher: None. Estimated Blood Loss: 1cc Specimen: 1600 [...] uncomplicated ultrasound guided right thoracentesis. Signed: Moiz Musa MDReport Verified Date/Time: 08/13/2018 16:22:16 Reading Location: [facility] [id number] Ultrasound Reading Room [id number] 07:18:00 Test Item Value Reference Range Comments MAGNESIUM (BEAKER) (test code = 627) 2.0 mg/dL 1.6-2.6 BASIC METABOLIC [id number] 07:18:00 Test Item Value Reference Range Comments SODIUM (BEAKER) (test 134 meq/L 136-145 code = 381) POTASSIUM (BEAKER) (test 3.6 meq/L 3.5-5.1 code = 379) CHLORIDE (BEAKER) (test 94 meq/L 98-107 code = 382) CO2 (BEAKER) (test code = 28 meq/L 22-29 355) BLOOD UREA NITROGEN 37 mg/dL 7-21 (BEAKER) (test code = 354) CREATININE (BEAKER) (test 5.93 mg/dL 0.57-1.25 code = 358) GLUCOSE RANDOM (BEAKER) 101 mg/dL 70-105 (test code = 652) CALCIUM (BEAKER) (test 8.9 mg/dL 8.4-10.2 code = 697) EGFR (BEAKER) (test code 12 mL/min/1.73 sq m EST IMATED GFR IS NOT = 1092) ACCURATE CREA TININE CLEARANCE IN PRE DICTING GLOMERULAR FILTR ATION RATE. ESTIMATED GFR IS NOT APPLICABLE F OR DIALYSIS PATIENT S. RAD, CHEST, 1 VIEW, NON [id number] 06:25:00Reason for exam:->SOBShould this be performed at the bedside?->YesFINAL REPORT RAD, CHEST, 1 VIEW, NON DEPT INDICATION: SOB COMPARISON: Plain radiograph the chest dated 08/05/2018. FINDINGS: Portable frontal view of the chest. IMPRESSION: Lungs and pleura: Unchanged discoid atelectasis in the right middle lung. Unchanged moderate right pleural effusion with adjacent atelectasis, however superimposed infection cannot be excluded. Mild pulmonary vascular congestion and interstitial pulmonary edema is unchanged. No pneumothorax. Heart and mediastinum: Stable contours. Stable surgical changes.Additional findings: None. Signed: Sobeida Taylor Verified Date/Time: 08/13/2018 06:25:21 Reading Location: [address] Re ading Room [id number] 05:49:00 Test Item Value Reference Range Comments PARTIAL THROMBOPLASTIN TIME (BEAKER) (test code 42.0 seconds 22.5-36.0 = 760) PROTHROMBIN TIME/[id number] 05:48:00 Test Item Value Reference Range Comments PROTIME (BEAKER) (test code = 759) 22.1 seconds 11.7-14.7 INR (BEAKER) (test code = 370) 1.9 <=5.9 RECOMMENDED COUMADIN/WARFARIN INR THERAPY RANGESSTANDARD DOSE: 2.0 - 3.0 Includes: PROPHYLAXIS forvenous thrombosis, systemic embolization; TREATMENT for venous thrombosis and/or pulmonary embolus.HIGH RISK: Target INR is 2.5-3.5 for patients with mechanical heart valves.CBC W/PLT COUNT & AUTO DIFFERENTIAL 2018-08-13 05:37:00 Test Item Value Reference Range Comments WHITE BLOOD CELL COUNT (BEAKER) (test code = 6.1 K/ L 3.5 -10.5 775) RED BLOOD CELL COUNT (BEAKER) (test code = 761) 3.12 M/ L 4.63-6.08 HEMOGLOBIN (BEAKER) (test code = 410) 10.4 GM/DL 13.7-17.5 HEMATOCRIT (BEAKER) (test code = 411) 31.4 % 40.1-51.0 MEAN CORPUSCULAR VOLUME (BEAKER) (test code = 100.6 fL 79 .0-92.2 753) MEAN CORPUSCULAR HEMOGLOBIN (BEAKER) (test code 33.3 pg 25.7-32.2 = 751) MEAN CORPUSCULAR HEMOGLOBIN CONC (BEAKER) (test 33.1 GM/DL 32.3-36.5 code = 752) RED CELL DISTRIBUTION WIDTH (BEAKER) (test code 14.3 % 11.6-14.4 = 412) PLATELET COUNT (BEAKER) (test code = 756) 143 K/CU MM 150-45 0 MEAN PLATELET VOLUME (BEAKER) (test code = 754) 9.3 fL 9.4-12.4 NUCLEATED RED BLOOD CELLS (BEAKER) (test code = 0 /100 WBC 0-0 413) NEUTROPHILS RELATIVE PERCENT (BEAKER) (test code 64 % = 429) LYMPHOCYTES RELATIVE PERCENT (BEAKER) (test code 13 % = 430) MONOCYTES RELATIVE PERCENT (BEAKER) (test code = 21 % 431) EOSINOPHILS RELATIVE PERCENT (BEAKER) (test code 2 % = 432) BASOPHILS RELATIVE PERCENT (BEAKER) (test code = 1 % 437) NEUTROPHILS ABSOLUTE COUNT (BEAKER) (test code = 3.85 K/ L 1.78-5.38 670) LYMPHOCYTES ABSOLUTE COUNT (BEAKER) (test code = 0.77 K/ L 1.32-3.57 414) MONOCYTES ABSOLUTE COUNT (BEAKER) (test code = 1.27 K/ L 0 .30-0.82 415) EOSINOPHILS ABSOLUTE COUNT (BEAKER) (test code = 0.09 K/ L 0.04-0.54 416) BASOPHILS ABSOLUTE COUNT (BEAKER) (test code = 0.05 K/ L 0 .01-0.08 417) IMMATURE GRANULOCYTES-RELATIVE PERCENT (BEAKER) 0 % 0-1 (test code = 2801) POCT-GLUCOSE [id number] 18:30:00 Test Item Value Reference Range Comments POC-GLUCOSE METER (BEAKER) 80 mg/dL 70-110 TESTE D AT [facility] [address] (test code = 1538) [place] [address] RAD, CHEST, 1 VIEW, NON [id number] 13:46:00Reason for exam:->evaluate pleural effusionShould this be performed at the bedside?->YesFINAL REPORT Comparison: 08/02/2018 TECHNIQUE: Single view of the chest FINDINGS Bilateral interstitial and airspace opacities are stable. Bilateral pleural effusions seen, right greater than left. No gross new lung parenchymal changes. Post surgical changes in the mediastinum. IMPRESSION: No significant interval change. Signed: Kyle Romeeport Verified Date/Time: 08/06/2018 13:46:20 Reading Location: [facility] Radiology Reading Room [id number] 09:33:00 Test Item Value Reference Range Comments PARTIAL THROMBOPLASTIN TIME (BEAKER) (test 113.6 seconds 22.5- 36.0 code = 760) [id number] 06:48:00 Test Item Value Reference Range Comments PROTIME (BEAKER) (test code = 759) 23.2 seconds 11.7-14.7 INR (BEAKER) (test code = 370) 2.1 <=5.9 PARTIAL THROMBOPLASTIN TIME (BEAKER) (test 164.1 seconds 22.5- 36.0 code = 760) RECOMMENDED COUMADIN/WARFARIN INR THERAPY RANGESSTANDARD DOSE: 2.0 - 3.0 Includes: PROPHYLAXIS forvenous thrombosis, systemic embolization; TREATMENT for venous thrombosis and/or pulmonary embolus.HIGH RISK: Target INR is 2.5-3.5 for patients with mechanical heart valves.While on warfarin.While on warfarin.BASIC METABOLIC [id number] 06:45:00 Test Item Value Reference Range Comments SODIUM (BEAKER) (test 136 meq/L 136-145 code = 381) POTASSIUM (BEAKER) (test 3.9 meq/L 3.5-5.1 Specime n slightly code = 379) hemolyzed CHLORIDE (BEAKER) (test 98 meq/L 98-107 code = 382) CO2 (BEAKER) (test code = 29 meq/L 22-29 355) BLOOD UREA NITROGEN 27 mg/dL 7-21 (BEAKER) (test code = 354) CREATININE (BEAKER) (test 5.78 mg/dL 0.57-1.25 Specim en slightly code = 358) hemolyzed GLUCOSE RANDOM (BEAKER) 92 mg/dL 70-105 (test code = 652) CALCIUM (BEAKER) (test 9.2 mg/dL 8.4-10.2 code = 697) EGFR (BEAKER) (test code 12 mL/min/1.73 sq m EST IMATED GFR IS NOT = 1092) ACCURATE CREA TININE CLEARANCE IN PRE DICTING GLOMERULAR FILTR ATION RATE. ESTIMATED GFR IS NOT APPLICABLE F OR DIALYSIS PATIENT S. PROTHROMBIN [id number] 06:43:00 Test Item Value Reference Range Comments PROTIME (BEAKER) (test code = 759) 23.2 seconds 11.7-14.7 INR (BEAKER) (test code = 370) 2.1 <=5.9 RECOMMENDED COUMADIN/WARFARIN INR THERAPY RANGESSTANDARD DOSE: 2.0 - 3.0 Includes: PROPHYLAXIS forvenous thrombosis, systemic embolization; TREATMENT for venous thrombosis and/or pulmonary embolus.HIGH RISK: Target INR is 2.5-3.5 for patients with mechanical heart valves.CBC W/PLT COUNT & AUTO DIFFERENTIAL 2018-08-06 06:34:00 Test Item Value Reference Range Comments WHITE BLOOD CELL COUNT (BEAKER) (test code = 6.0 K/ L 3.5 -10.5 775) RED BLOOD CELL COUNT (BEAKER) (test code = 761) 3.40 M/ L 4.63-6.08 HEMOGLOBIN (BEAKER) (test code = 410) 11.2 GM/DL 13.7-17.5 HEMATOCRIT (BEAKER) (test code = 411) 34.2 % 40.1-51.0 MEAN CORPUSCULAR VOLUME (BEAKER) (test code = 100.6 fL 79 .0-92.2 753) MEAN CORPUSCULAR HEMOGLOBIN (BEAKER) (test code 32.9 pg 25.7-32.2 = 751) MEAN CORPUSCULAR HEMOGLOBIN CONC (BEAKER) (test 32.7 GM/DL 32.3-36.5 code = 752) RED CELL DISTRIBUTION WIDTH (BEAKER) (test code 14.9 % 11.6-14.4 = 412) PLATELET COUNT (BEAKER) (test code = 756) 117 K/CU MM 150-45 0 MEAN PLATELET VOLUME (BEAKER) (test code = 754) 9.5 fL 9.4-12.4 NUCLEATED RED BLOOD CELLS (BEAKER) (test code = 0 /100 WBC 0-0 413) NEUTROPHILS RELATIVE PERCENT (BEAKER) (test code 65 % = 429) LYMPHOCYTES RELATIVE PERCENT (BEAKER) (test code 17 % = 430) MONOCYTES RELATIVE PERCENT (BEAKER) (test code = 16 % 431) EOSINOPHILS RELATIVE PERCENT (BEAKER) (test code 2 % = 432) BASOPHILS RELATIVE PERCENT (BEAKER) (test code = 1 % 437) NEUTROPHILS ABSOLUTE COUNT (BEAKER) (test code = 3.90 K/ L 1.78-5.38 670) LYMPHOCYTES ABSOLUTE COUNT (BEAKER) (test code = 1.00 K/ L 1.32-3.57 414) MONOCYTES ABSOLUTE COUNT (BEAKER) (test code = 0.94 K/ L 0 .30-0.82 415) EOSINOPHILS ABSOLUTE COUNT (BEAKER) (test code = 0.13 K/ L 0.04-0.54 416) BASOPHILS ABSOLUTE COUNT (BEAKER) (test code = 0.04 K/ L 0 .01-0.08 417) IMMATURE GRANULOCYTES-RELATIVE PERCENT (BEAKER) 0 % 0-1 (test code = 2801) CBC (HEMOGRAM ONLY)2018-08-06 06:23:00 Test Item Value Reference Range Comments WHITE BLOOD CELL COUNT (BEAKER) (test code = 6.0 K/ L 3.5 -10.5 775) RED BLOOD CELL COUNT (BEAKER) (test code = 761) 3.40 M/ L 4.63-6.08 HEMOGLOBIN (BEAKER) (test code = 410) 11.2 GM/DL 13.7-17.5 HEMATOCRIT (BEAKER) (test code = 411) 34.2 % 40.1-51.0 MEAN CORPUSCULAR VOLUME (BEAKER) (test code = 100.6 fL 79 .0-92.2 753) MEAN CORPUSCULAR HEMOGLOBIN (BEAKER) (test code 32.9 pg 25.7-32.2 = 751) MEAN CORPUSCULAR HEMOGLOBIN CONC (BEAKER) (test 32.7 GM/DL 32.3-36.5 code = 752) RED CELL DISTRIBUTION WIDTH (BEAKER) (test code 14.9 % 11.6-14.4 = 412) PLATELET COUNT (BEAKER) (test code = 756) 117 K/CU MM 150-45 0 MEAN PLATELET VOLUME (BEAKER) (test code = 754) 9.5 fL 9.4-12.4 NUCLEATED RED BLOOD CELLS (BEAKER) (test code = 0 /100 WBC 0-0 413) [id number] 20:40:00 Test Item Value Reference Range Comments PARTIAL THROMBOPLASTIN TIME (BEAKER) (test code 81.7 seconds 22.5-36.0 = 760) [id number] 14:05:00 Test Item Value Reference Range Comments PARTIAL THROMBOPLASTIN TIME (BEAKER) (test code 91.5 seconds 22.5-36.0 = 760) BASIC METABOLIC [id number] 07:02:00 Test Item Value Reference Range Comments SODIUM (BEAKER) (test 130 meq/L 136-145 code = 381) POTASSIUM (BEAKER) (test 4.3 meq/L 3.5-5.1 code = 379) CHLORIDE (BEAKER) (test 97 meq/L 98-107 code = 382) CO2 (BEAKER) (test code = 19 meq/L 22-29 355) BLOOD UREA NITROGEN 52 mg/dL 7-21 (BEAKER) (test code = 354) CREATININE (BEAKER) (test 8.62 mg/dL 0.57-1.25 code = 358) GLUCOSE RANDOM (BEAKER) 75 mg/dL 70-105 (test code = 652) CALCIUM (BEAKER) (test 9.3 mg/dL 8.4-10.2 code = 697) EGFR (BEAKER) (test code 8 mL/min/1.73 sq m OK MATED GFR IS NOT = 1092) ACCURATE CREA TININE CLEARANCE IN PRE DICTING GLOMERULAR FILTR ATION RATE. ESTIMATED GFR IS NOT APPLICABLE F OR DIALYSIS PATIENT S. PT/[id number] 06:47:00 Test Item Value Reference Range Comments PROTIME (BEAKER) (test code = 759) 19.8 seconds 11.7-14.7 INR (BEAKER) (test code = 370) 1.7 <=5.9 PARTIAL THROMBOPLASTIN TIME (BEAKER) (test code 44.1 seconds 22.5-36.0 = 760) RECOMMENDED COUMADIN/WARFARIN INR THERAPY RANGESSTANDARD DOSE: 2.0 - 3.0 Includes: PROPHYLAXIS forvenous thrombosis, systemic embolization; TREATMENT for venous thrombosis and/or pulmonary embolus.HIGH RISK: Target INR is 2.5-3.5 for patients with mechanical heart valves.Ok to add onOk to add onPROTHROMBIN [id number] 06:46:00 Test Item Value Reference Range Comments PROTIME (BEAKER) (test code = 759) 19.8 seconds 11.7-14.7 INR (BEAKER) (test code = 370) 1.7 <=5.9 RECOMMENDED COUMADIN/WARFARIN INR THERAPY RANGESSTANDARD DOSE: 2.0 - 3.0 Includes: PROPHYLAXIS forvenous thrombosis, systemic embolization; TREATMENT for venous thrombosis and/or pulmonary embolus.HIGH RISK: Target INR is 2.5-3.5 for patients with mechanical heart valves.CBC W/PLT COUNT & AUTO DIFFERENTIAL 2018-08-05 06:38:00 Test Item Value Reference Range Comments WHITE BLOOD CELL COUNT (BEAKER) (test code = 6.4 K/ L 3.5 -10.5 775) RED BLOOD CELL COUNT (BEAKER) (test code = 761) 3.40 M/ L 4.63-6.08 HEMOGLOBIN (BEAKER) (test code = 410) 11.2 GM/DL 13.7-17.5 HEMATOCRIT (BEAKER) (test code = 411) 33.8 % 40.1-51.0 MEAN CORPUSCULAR VOLUME (BEAKER) (test code = 99.4 fL 79 .0-92.2 753) MEAN CORPUSCULAR HEMOGLOBIN (BEAKER) (test code 32.9 pg 25.7-32.2 = 751) MEAN CORPUSCULAR HEMOGLOBIN CONC (BEAKER) (test 33.1 GM/DL 32.3-36.5 code = 752) RED CELL DISTRIBUTION WIDTH (BEAKER) (test code 14.6 % 11.6-14.4 = 412) PLATELET COUNT (BEAKER) (test code = 756) 122 K/CU MM 150-45 0 MEAN PLATELET VOLUME (BEAKER) (test code = 754) 10.1 fL 9.4-12.4 NUCLEATED RED BLOOD CELLS (BEAKER) (test code = 0 /100 WBC 0-0 413) NEUTROPHILS RELATIVE PERCENT (BEAKER) (test code 62 % = 429) LYMPHOCYTES RELATIVE PERCENT (BEAKER) (test code 20 % = 430) MONOCYTES RELATIVE PERCENT (BEAKER) (test code = 15 % 431) EOSINOPHILS RELATIVE PERCENT (BEAKER) (test code 3 % = 432) BASOPHILS RELATIVE PERCENT (BEAKER) (test code = 1 % 437) NEUTROPHILS ABSOLUTE COUNT (BEAKER) (test code = 3.96 K/ L 1.78-5.38 670) LYMPHOCYTES ABSOLUTE COUNT (BEAKER) (test code = 1.25 K/ L 1.32-3.57 414) MONOCYTES ABSOLUTE COUNT (BEAKER) (test code = 0.93 K/ L 0 .30-0.82 415) EOSINOPHILS ABSOLUTE COUNT (BEAKER) (test code = 0.17 K/ L 0.04-0.54 416) BASOPHILS ABSOLUTE COUNT (BEAKER) (test code = 0.04 K/ L 0 .01-0.08 417) IMMATURE GRANULOCYTES-RELATIVE PERCENT (BEAKER) 0 % 0-1 (test code = 2801) [id number] 16:22:00 Test Item Value Reference Range Comments PARTIAL THROMBOPLASTIN TIME (BEAKER) (test code 76.1 seconds 22.5-36.0 = 760) BODY FLUID CULTURE + GRAM [id number] 09:10:00 Test Item Value Reference Range Comments CULTURE (BEAKER) (test code = 1095) No growth GRAM STAIN RESULT (BEAKER) (test code = <1+ WBCs 1123) GRAM STAIN RESULT (BEAKER) (test code = No organisms seen 51422) CBC W/PLT COUNT & AUTO [id number] 07:23:00 Test Item Value Reference Range Comments WHITE BLOOD CELL COUNT (BEAKER) (test code = 7.1 K/ L 3.5 -10.5 775) RED BLOOD CELL COUNT (BEAKER) (test code = 761) 3.54 M/ L 4.63-6.08 HEMOGLOBIN (BEAKER) (test code = 410) 11.6 GM/DL 13.7-17.5 HEMATOCRIT (BEAKER) (test code = 411) 35.6 % 40.1-51.0 MEAN CORPUSCULAR VOLUME (BEAKER) (test code = 100.6 fL 79 .0-92.2 753) MEAN CORPUSCULAR HEMOGLOBIN (BEAKER) (test code 32.8 pg 25.7-32.2 = 751) MEAN CORPUSCULAR HEMOGLOBIN CONC (BEAKER) (test 32.6 GM/DL 32.3-36.5 code = 752) RED CELL DISTRIBUTION WIDTH (BEAKER) (test code 14.7 % 11.6-14.4 = 412) PLATELET COUNT (BEAKER) (test code = 756) 115 K/CU MM 150-45 0 MEAN PLATELET VOLUME (BEAKER) (test code = 754) 9.8 fL 9.4-12.4 NUCLEATED RED BLOOD CELLS (BEAKER) (test code = 0 /100 WBC 0-0 413) NEUTROPHILS RELATIVE PERCENT (BEAKER) (test code 66 % = 429) LYMPHOCYTES RELATIVE PERCENT (BEAKER) (test code 17 % = 430) MONOCYTES RELATIVE PERCENT (BEAKER) (test code = 14 % 431) EOSINOPHILS RELATIVE PERCENT (BEAKER) (test code 2 % = 432) BASOPHILS RELATIVE PERCENT (BEAKER) (test code = 0 % 437) NEUTROPHILS ABSOLUTE COUNT (BEAKER) (test code = 4.67 K/ L 1.78-5.38 670) LYMPHOCYTES ABSOLUTE COUNT (BEAKER) (test code = 1.23 K/ L 1.32-3.57 414) MONOCYTES ABSOLUTE COUNT (BEAKER) (test code = 1.02 K/ L 0 .30-0.82 415) EOSINOPHILS ABSOLUTE COUNT (BEAKER) (test code = 0.14 K/ L 0.04-0.54 416) BASOPHILS ABSOLUTE COUNT (BEAKER) (test code = 0.03 K/ L 0 .01-0.08 417) IMMATURE GRANULOCYTES-RELATIVE PERCENT (BEAKER) 0 % 0-1 (test code = 2801) CBC (HEMOGRAM ONLY)2018-08-04 07:23:00 Test Item Value Reference Range Comments WHITE BLOOD CELL COUNT (BEAKER) (test code = 7.1 K/ L 3.5 -10.5 775) RED BLOOD CELL COUNT (BEAKER) (test code = 761) 3.54 M/ L 4.63-6.08 HEMOGLOBIN (BEAKER) (test code = 410) 11.6 GM/DL 13.7-17.5 HEMATOCRIT (BEAKER) (test code = 411) 35.6 % 40.1-51.0 MEAN CORPUSCULAR VOLUME (BEAKER) (test code = 100.6 fL 79 .0-92.2 753) MEAN CORPUSCULAR HEMOGLOBIN (BEAKER) (test code 32.8 pg 25.7-32.2 = 751) MEAN CORPUSCULAR HEMOGLOBIN CONC (BEAKER) (test 32.6 GM/DL 32.3-36.5 code = 752) RED CELL DISTRIBUTION WIDTH (BEAKER) (test code 14.7 % 11.6-14.4 = 412) PLATELET COUNT (BEAKER) (test code = 756) 115 K/CU MM 150-45 0 MEAN PLATELET VOLUME (BEAKER) (test code = 754) 9.8 fL 9.4-12.4 NUCLEATED RED BLOOD CELLS (BEAKER) (test code = 0 /100 WBC 0-0 413) BASIC METABOLIC [id number] 07:05:00 Test Item Value Reference Range Comments SODIUM (BEAKER) (test 134 meq/L 136-145 code = 381) POTASSIUM (BEAKER) (test 4.0 meq/L 3.5-5.1 code = 379) CHLORIDE (BEAKER) (test 100 meq/L 98-107 code = 382) CO2 (BEAKER) (test code = 24 meq/L 22-29 355) BLOOD UREA NITROGEN 38 mg/dL 7-21 (BEAKER) (test code = 354) CREATININE (BEAKER) (test 7.15 mg/dL 0.57-1.25 code = 358) GLUCOSE RANDOM (BEAKER) 92 mg/dL 70-105 (test code = 652) CALCIUM (BEAKER) (test 9.5 mg/dL 8.4-10.2 code = 697) EGFR (BEAKER) (test code 10 mL/min/1.73 sq m EST IMATED GFR IS NOT = 1092) ACCURATE CREA TININE CLEARANCE IN PRE DICTING GLOMERULAR FILTR ATION RATE. ESTIMATED GFR IS NOT APPLICABLE F OR DIALYSIS PATIENT S. [id number] 06:53:00 Test Item Value Reference Range Comments PROTIME (BEAKER) (test code = 759) 17.5 seconds 11.7-14.7 INR (BEAKER) (test code = 370) 1.4 <=5.9 PARTIAL THROMBOPLASTIN TIME (BEAKER) (test code 70.3 seconds 22.5-36.0 = 760) RECOMMENDED COUMADIN/WARFARIN INR THERAPY RANGESSTANDARD DOSE: 2.0 - 3.0 Includes: PROPHYLAXIS forvenous thrombosis, systemic embolization; TREATMENT for venous thrombosis and/or pulmonary embolus.HIGH RISK: Target INR is 2.5-3.5 for patients with mechanical heart valves.Ok to add onOk to add [id number] 06:53:00 Test Item Value Reference Range Comments PARTIAL THROMBOPLASTIN TIME (BEAKER) (test code 70.3 seconds 22.5-36.0 = 760) PROTHROMBIN [id number] 06:52:00 Test Item Value Reference Range Comments PROTIME (BEAKER) (test code = 759) 17.5 seconds 11.7-14.7 INR (BEAKER) (test code = 370) 1.4 <=5.9 RECOMMENDED COUMADIN/WARFARIN INR THERAPY RANGESSTANDARD DOSE: 2.0 - 3.0 Includes: PROPHYLAXIS forvenous thrombosis, systemic embolization; TREATMENT for venous thrombosis and/or pulmonary embolus.HIGH RISK: Target INR is 2.5-3.5 for patients with mechanical heart valves.PROTHROMBIN [id number] 06:51:00 Test Item Value Reference Range Comments PROTIME (BEAKER) (test code = 759) 17.7 seconds 11.7-14.7 INR (BEAKER) (test code = 370) 1.5 <=5.9 RECOMMENDED COUMADIN/WARFARIN INR THERAPY RANGESSTANDARD DOSE: 2.0 - 3.0 Includes: PROPHYLAXIS forvenous thrombosis, systemic embolization; TREATMENT for venous thrombosis and/or pulmonary embolus.HIGH RISK: Target INR is 2.5-3.5 for patients with mechanical heart valves.While on warfarin.[id number] 22:47:00 Test Item Value Reference Range Comments PARTIAL THROMBOPLASTIN TIME (BEAKER) (test code 73.6 seconds 22.5-36.0 = 760) [id number] 13:08:00 Test Item Value Reference Range Comments PARTIAL THROMBOPLASTIN TIME (BEAKER) (test code 49.2 seconds 22.5-36.0 = 760) BASIC METABOLIC [id number] 06:56:00 Test Item Value Reference Range Comments SODIUM (BEAKER) (test 135 meq/L 136-145 code = 381) POTASSIUM (BEAKER) (test 4.2 meq/L 3.5-5.1 code = 379) CHLORIDE (BEAKER) (test 101 meq/L 98-107 code = 382) CO2 (BEAKER) (test code = 26 meq/L 22-29 355) BLOOD UREA NITROGEN 21 mg/dL 7-21 (BEAKER) (test code = 354) CREATININE (BEAKER) (test 5.04 mg/dL 0.57-1.25 code = 358) GLUCOSE RANDOM (BEAKER) 92 mg/dL 70-105 (test code = 652) CALCIUM (BEAKER) (test 9.5 mg/dL 8.4-10.2 code = 697) EGFR (BEAKER) (test code 14 mL/min/1.73 sq m EST IMATED GFR IS NOT = 1092) ACCURATE CREA TININE CLEARANCE IN PRE DICTING GLOMERULAR FILTR ATION RATE. ESTIMATED GFR IS NOT APPLICABLE F OR DIALYSIS PATIENT S. [id number] 06:56:00 Test Item Value Reference Range Comments PARTIAL THROMBOPLASTIN TIME (BEAKER) (test code 67.5 seconds 22.5-36.0 = 760) [id number] 06:45:00 Test Item Value Reference Range Comments PROTIME (BEAKER) (test code = 759) 18.6 seconds 11.7-14.7 INR (BEAKER) (test code = 370) 1.6 <=5.9 PARTIAL THROMBOPLASTIN TIME (BEAKER) (test code 62.0 seconds 22.5-36.0 = 760) RECOMMENDED COUMADIN/WARFARIN INR THERAPY RANGESSTANDARD DOSE: 2.0 - 3.0 Includes: PROPHYLAXIS forvenous thrombosis, systemic embolization; TREATMENT for venous thrombosis and/or pulmonary embolus.HIGH RISK: Target INR is 2.5-3.5 for patients with mechanical heart valves.Ok to add onOk to add onPROTHROMBIN [id number] 06:44:00 Test Item Value Reference Range Comments PROTIME (BEAKER) (test code = 759) 18.6 seconds 11.7-14.7 INR (BEAKER) (test code = 370) 1.6 <=5.9 RECOMMENDED COUMADIN/WARFARIN INR THERAPY RANGESSTANDARD DOSE: 2.0 - 3.0 Includes: PROPHYLAXIS forvenous thrombosis, systemic embolization; TREATMENT for venous thrombosis and/or pulmonary embolus.HIGH RISK: Target INR is 2.5-3.5 for patients with mechanical heart valves.CBC W/PLT COUNT & AUTO DIFFERENTIAL 2018-08-03 06:28:00 Test Item Value Reference Range Comments WHITE BLOOD CELL COUNT (BEAKER) (test code = 775) 6.1 K/ L 3.5-10.5 RED BLOOD CELL COUNT (BEAKER) (test code = 761) 3.44 M/ L 4.63-6.08 HEMOGLOBIN (BEAKER) (test code = 410) 11.4 GM/DL 13.7-17.5 HEMATOCRIT (BEAKER) (test code = 411) 34.9 % 40.1-51.0 MEAN CORPUSCULAR VOLUME (BEAKER) (test code = 101.5 fL 79 .0-92.2 753) MEAN CORPUSCULAR HEMOGLOBIN (BEAKER) (test code = 33.1 pg 25.7-32.2 751) MEAN CORPUSCULAR HEMOGLOBIN CONC (BEAKER) (test 32.7 GM/DL 32.3-36.5 code = 752) RED CELL DISTRIBUTION WIDTH (BEAKER) (test code = 14.8 % 11.6-14.4 412) PLATELET COUNT (BEAKER) (test code = 756) 98 K/CU MM 150-45 0 MEAN PLATELET VOLUME (BEAKER) (test code = 754) 9.6 fL 9.4-12.4 NUCLEATED RED BLOOD CELLS (BEAKER) (test code = 0 /100 WBC 0-0 413) NEUTROPHILS RELATIVE PERCENT (BEAKER) (test code 66 % = 429) LYMPHOCYTES RELATIVE PERCENT (BEAKER) (test code 17 % = 430) MONOCYTES RELATIVE PERCENT (BEAKER) (test code = 15 % 431) EOSINOPHILS RELATIVE PERCENT (BEAKER) (test code 2 % = 432) BASOPHILS RELATIVE PERCENT (BEAKER) (test code = 1 % 437) NEUTROPHILS ABSOLUTE COUNT (BEAKER) (test code = 3.99 K/ L 1.78-5.38 670) LYMPHOCYTES ABSOLUTE COUNT (BEAKER) (test code = 1.02 K/ L 1.32-3.57 414) MONOCYTES ABSOLUTE COUNT (BEAKER) (test code = 0.89 K/ L 0 .30-0.82 415) EOSINOPHILS ABSOLUTE COUNT (BEAKER) (test code = 0.12 K/ L 0.04-0.54 416) BASOPHILS ABSOLUTE COUNT (BEAKER) (test code = 0.03 K/ L 0 .01-0.08 417) IMMATURE GRANULOCYTES-RELATIVE PERCENT (BEAKER) 0 % 0-1 (test code = 2801) CBC (HEMOGRAM ONLY)2018-08-03 06:28:00 Test Item Value Reference Range Comments WHITE BLOOD CELL COUNT (BEAKER) (test code = 775) 6.1 K/ L 3.5-10.5 RED BLOOD CELL COUNT (BEAKER) (test code = 761) 3.44 M/ L 4.63-6.08 HEMOGLOBIN (BEAKER) (test code = 410) 11.4 GM/DL 13.7-17.5 HEMATOCRIT (BEAKER) (test code = 411) 34.9 % 40.1-51.0 MEAN CORPUSCULAR VOLUME (BEAKER) (test code = 101.5 fL 79 .0-92.2 753) MEAN CORPUSCULAR HEMOGLOBIN (BEAKER) (test code = 33.1 pg 25.7-32.2 751) MEAN CORPUSCULAR HEMOGLOBIN CONC (BEAKER) (test 32.7 GM/DL 32.3-36.5 code = 752) RED CELL DISTRIBUTION WIDTH (BEAKER) (test code = 14.8 % 11.6-14.4 412) PLATELET COUNT (BEAKER) (test code = 756) 98 K/CU MM 150-45 0 MEAN PLATELET VOLUME (BEAKER) (test code = 754) 9.6 fL 9.4-12.4 NUCLEATED RED BLOOD CELLS (BEAKER) (test code = 0 /100 WBC 0-0 413) [id number] 02:18:00 Test Item Value Reference Range Comments PARTIAL THROMBOPLASTIN TIME (BEAKER) (test code 67.1 seconds 22.5-36.0 = 760) [id number] 18:56:00 Test Item Value Reference Range Comments PARTIAL THROMBOPLASTIN TIME (BEAKER) (test code 72.5 seconds 22.5-36.0 = 760) POCT-GLUCOSE [id number] 13:08:00 Test Item Value Reference Range Comments POC-GLUCOSE METER (BEAKER) 121 mg/dL 70-110 TESTE D AT [facility] [address] (test code = 1538) [place] [address] [id number] 12:07:00 Test Item Value Reference Range Comments PARTIAL THROMBOPLASTIN TIME (BEAKER) (test code 50.7 seconds 22.5-36.0 = 760) Ok to add onPROTHROMBIN [id number] 12:05:00 Test Item Value Reference Range Comments PROTIME (BEAKER) (test code = 759) 16.7 seconds 11.7-14.7 INR (BEAKER) (test code = 370) 1.4 <=5.9 RECOMMENDED COUMADIN/WARFARIN INR THERAPY RANGESSTANDARD DOSE: 2.0 - 3.0 Includes: PROPHYLAXIS forvenous thrombosis, systemic embolization; TREATMENT for venous thrombosis and/or pulmonary embolus.HIGH RISK: Target INR is 2.5-3.5 for patients with mechanical heart valves.Ok to add onCBC (HEMOGRAM ONLY)2018-08-02 11:55:00 Test Item Value Reference Range Comments WHITE BLOOD CELL COUNT (BEAKER) (test code = 5.4 K/ L 3.5 -10.5 775) RED BLOOD CELL COUNT (BEAKER) (test code = 761) 3.35 M/ L 4.63-6.08 HEMOGLOBIN (BEAKER) (test code = 410) 11.1 GM/DL 13.7-17.5 HEMATOCRIT (BEAKER) (test code = 411) 34.1 % 40.1-51.0 MEAN CORPUSCULAR VOLUME (BEAKER) (test code = 101.8 fL 79 .0-92.2 753) MEAN CORPUSCULAR HEMOGLOBIN (BEAKER) (test code 33.1 pg 25.7-32.2 = 751) MEAN CORPUSCULAR HEMOGLOBIN CONC (BEAKER) (test 32.6 GM/DL 32.3-36.5 code = 752) RED CELL DISTRIBUTION WIDTH (BEAKER) (test code 14.8 % 11.6-14.4 = 412) PLATELET COUNT (BEAKER) (test code = 756) 115 K/CU MM 150-45 0 MEAN PLATELET VOLUME (BEAKER) (test code = 754) 9.3 fL 9.4-12.4 NUCLEATED RED BLOOD CELLS (BEAKER) (test code = 0 /100 WBC 0-0 413) RAD, CHEST, 1 VIEW, NON [id number] 11:24:00Reason for exam:->pleural effusionShould this be performed at the bedside?->YesFINAL REPORT AP chest HISTORY: Pleural effusion COMPARISON: 08/01/2018 IMPRESS ION:Intact skeleton. Cardiomegaly. Moderate interstitial edema. Moderate right and small left effusions. No pneumothorax. Signed: Mandy Chairez MDReport Verified Date/Time: 08/02/2018 11:24:33 Reading Location: [address] Ortho Consult Reading Room BASIC METABOLIC [id number] 02:55:00 Test Item Value Reference Range Comments SODIUM (BEAKER) (test 134 meq/L 136-145 code = 381) POTASSIUM (BEAKER) (test 4.5 meq/L 3.5-5.1 code = 379) CHLORIDE (BEAKER) (test 99 meq/L 98-107 code = 382) CO2 (BEAKER) (test code = 23 meq/L 22-29 355) BLOOD UREA NITROGEN 38 mg/dL 7-21 (BEAKER) (test code = 354) CREATININE (BEAKER) (test 6.61 mg/dL 0.57-1.25 code = 358) GLUCOSE RANDOM (BEAKER) 86 mg/dL 70-105 (test code = 652) CALCIUM (BEAKER) (test 9.2 mg/dL 8.4-10.2 code = 697) EGFR (BEAKER) (test code 10 mL/min/1.73 sq m EST IMATED GFR IS NOT = 1092) ACCURATE CREA TININE CLEARANCE IN PRE DICTING GLOMERULAR FILTR ATION RATE. ESTIMATED GFR IS NOT APPLICABLE F OR DIALYSIS PATIENT S. [id number] 02:39:00 Test Item Value Reference Range Comments PARTIAL THROMBOPLASTIN TIME (BEAKER) (test code 51.6 seconds 22.5-36.0 = 760) CBC W/PLT COUNT & AUTO [id number] 02:30:00 Test Item Value Reference Range Comments WHITE BLOOD CELL COUNT (BEAKER) (test code = 5.6 K/ L 3.5 -10.5 775) RED BLOOD CELL COUNT (BEAKER) (test code = 761) 3.49 M/ L 4.63-6.08 HEMOGLOBIN (BEAKER) (test code = 410) 11.5 GM/DL 13.7-17.5 HEMATOCRIT (BEAKER) (test code = 411) 35.1 % 40.1-51.0 MEAN CORPUSCULAR VOLUME (BEAKER) (test code = 100.6 fL 79 .0-92.2 753) MEAN CORPUSCULAR HEMOGLOBIN (BEAKER) (test code 33.0 pg 25.7-32.2 = 751) MEAN CORPUSCULAR HEMOGLOBIN CONC (BEAKER) (test 32.8 GM/DL 32.3-36.5 code = 752) RED CELL DISTRIBUTION WIDTH (BEAKER) (test code 14.9 % 11.6-14.4 = 412) PLATELET COUNT (BEAKER) (test code = 756) 117 K/CU MM 150-45 0 MEAN PLATELET VOLUME (BEAKER) (test code = 754) 9.8 fL 9.4-12.4 NUCLEATED RED BLOOD CELLS (BEAKER) (test code = 0 /100 WBC 0-0 413) NEUTROPHILS RELATIVE PERCENT (BEAKER) (test code 64 % = 429) LYMPHOCYTES RELATIVE PERCENT (BEAKER) (test code 18 % = 430) MONOCYTES RELATIVE PERCENT (BEAKER) (test code = 15 % 431) EOSINOPHILS RELATIVE PERCENT (BEAKER) (test code 2 % = 432) BASOPHILS RELATIVE PERCENT (BEAKER) (test code = 1 % 437) NEUTROPHILS ABSOLUTE COUNT (BEAKER) (test code = 3.59 K/ L 1.78-5.38 670) LYMPHOCYTES ABSOLUTE COUNT (BEAKER) (test code = 1.02 K/ L 1.32-3.57 414) MONOCYTES ABSOLUTE COUNT (BEAKER) (test code = 0.84 K/ L 0 .30-0.82 415) EOSINOPHILS ABSOLUTE COUNT (BEAKER) (test code = 0.13 K/ L 0.04-0.54 416) BASOPHILS ABSOLUTE COUNT (BEAKER) (test code = 0.04 K/ L 0 .01-0.08 417) IMMATURE GRANULOCYTES-RELATIVE PERCENT (BEAKER) 0 % 0-1 (test code = 2801) BODY FLUID CELL COUNT WITH [id number] 21:13:00 Test Item Value Reference Range Comments APPEARANCE FLUID (BEAKER) (test code = 510) Bloody Dina r COLOR FLUID (BEAKER) (test code = 511) Sunil Colorless , Straw RBC FLUID (BEAKER) (test code = 513) 96185 /cu mm <=1 ADJUSTED WBC FLUID (BEAKER) (test code = 1691) 462 /cu mm < =5 LINING CELLS (BEAKER) (test code = 1590) 0 /cu mm <=1 NEUTROPHILS FLUID (BEAKER) (test code = 1656) 1 % LYMPHS FLUID (BEAKER) (test code = 488) 32 % MONO/MACROPHAGE FLUID (BEAKER) (test code = 67 % 489) EOSINOPHILS FLUID (BEAKER) (test code = 491) 0 % BASO FLUID (BEAKER) (test code = 492) 0 % CONTAINER BODY FLUID (BEAKER) (test code = EDTA Tube 2873) ALBUMIN, BODY [id number] 20:00:00 Test Item Value Reference Range Comments ALBUMIN FLUID (BEAKER) (test code = 501) 2.1 gm/dL Reference Range: No Normals Assay performance has not been validated for this type of specimen.LACTATE DEHYDROGENASE (LDH), BODY [id number] 20:00:00 Test Item Value Reference Range Comments LACTATE DEHYDROGENASE FLUID (BEAKER) (test code = 216 U/L 634) Absence of reference range indicates that normals have not been defined.Assay performance has not been validated for this type of specimen.PROTEIN, BODY FLUID 2018-08-01 20:00:00 Test Item Value Reference Range Comments PROTEIN FLUID (BEAKER) (test code = 579) 4.6 g/dL Absence of reference range indicates that normals have not been defined.Assay performance has not been validated for this type of specimen.GLUCOSE, BODY FLUID 2018-08-01 20:00:00 Test Item Value Reference Range Comments GLUCOSE, BODY FLUID (BEAKER) (test code = 1528) 103 mg/dL Absence of reference range indicates that normals have not been defined.Assay performance has not been validated for this type of specimen.RAD, CHEST, PA OR AP, 1 [id number] 17:08:00Ultrasound Room 1Reason for exam:->s/p Right sided ThoracentesisFINAL REPORT TECHNIQUE: Frontal chest radiograph dated 08/01/2018. CLINICAL HISTORY: S/P Right sided thora COMPARISON STUDY: Chest radiograph performed earlier the same day. IMPRESSION:Right-sided pleural effusion has decreased in size. No pneumothorax. Cardiomediastinal silhouette is stable in size. No pulmonary edema. Midline sternotomy wires are intact and well aligned. Degenerative changes are seen in the spine. Signed: Alonso Vailepdamion Verified Date/Time: 08/01/2018 17:08:13 Reading Location: [facility] [address] Radiology Reading Room U/S, [id number] 17:03:00 Laterality?->RightReason for exam:->large pleural effusionFINAL REPORT HISTORY: Right pleural effusion Following informed written consent, the patient's right posterior chest wall was prepped and draped in the usual sterile manner. 2% lidocaine was given locally for anesthesia. No conscious sedation was administered. Vital signs were monitored and remained stable. Using ultrasound guidance and a 5 [place] angiocatheter, access was gain ed to the right posterior pleural space. Approximately [...] of dark sunil fluid was removed, as d escribed above. Signed: Rhea Seymour Verified Date/Time: 08/01/2018 17:03:15 Reading Location: [facility] [id number] Ultrasound Reading Room RAD, CHEST, 1 VIEW, NON [id number] 12:40:00Reason for exam:->pleural effusion; shortness of breathShould this be performed at the bedside?->YesFINAL REPORT RAD, CHEST, 1 VIEW, NON DEPT INDICATION: pleural effusion; shortness of breath COMPARISON: July 30, 2018 FINDINGS: Portable frontal view of the chest. IMPRESSION: Support Lines: None. Lungs and pleura: Worsening congestive changes and airspace disease in the right base. Grossly stable volume of right effusion. Left lung is clear. No pneumothorax.Heart and mediastinum: Stable contours. Stable surgical changes.Additional findings: None. Signed: JR Platt Robert MDReport Verified Date/Time: 08/01/2018 12:40:42 Reading Location: [facility] Radiology Reading Room APTT 2018-08-01 11:33:00 Test Item Value Reference Range Comments PARTIAL THROMBOPLASTIN TIME (BEAKER) (test 118.1 seconds 22.5- 36.0 code = 760) BASIC METABOLIC [id number] 02:07:00 Test Item Value Reference Range Comments SODIUM (BEAKER) (test 137 meq/L 136-145 code = 381) POTASSIUM (BEAKER) (test 4.4 meq/L 3.5-5.1 Specime n slightly code = 379) hemolyzed CHLORIDE (BEAKER) (test 100 meq/L 98-107 code = 382) CO2 (BEAKER) (test code = 27 meq/L 22-29 355) BLOOD UREA NITROGEN 26 mg/dL 7-21 (BEAKER) (test code = 354) CREATININE (BEAKER) (test 4.73 mg/dL 0.57-1.25 Specim en slightly code = 358) hemolyzed GLUCOSE RANDOM (BEAKER) 81 mg/dL 70-105 (test code = 652) CALCIUM (BEAKER) (test 8.9 mg/dL 8.4-10.2 code = 697) EGFR (BEAKER) (test code 15 mL/min/1.73 sq m EST IMATED GFR IS NOT = 1092) ACCURATE CREA TININE CLEARANCE IN PRE DICTING GLOMERULAR FILTR ATION RATE. ESTIMATED GFR IS NOT APPLICABLE F OR DIALYSIS PATIENT S. [id number] 01:55:00 Test Item Value Reference Range Comments PROTIME (BEAKER) (test code = 759) 19.5 seconds 11.7-14.7 INR (BEAKER) (test code = 370) 1.7 <=5.9 PARTIAL THROMBOPLASTIN TIME (BEAKER) (test code 96.8 seconds 22.5-36.0 = 760) RECOMMENDED COUMADIN/WARFARIN INR THERAPY RANGESSTANDARD DOSE: 2.0 - 3.0 Includes: PROPHYLAXIS forvenous thrombosis, systemic embolization; TREATMENT for venous thrombosis and/or pulmonary embolus.HIGH RISK: Target INR is 2.5-3.5 for patients with mechanical heart valves.[id number] 01:55:00 Test Item Value Reference Range Comments PARTIAL THROMBOPLASTIN TIME (BEAKER) (test code 96.8 seconds 22.5-36.0 = 760) CBC W/PLT COUNT & AUTO [id number] 01:38:00 Test Item Value Reference Range Comments WHITE BLOOD CELL COUNT (BEAKER) (test code = 5.5 K/ L 3.5 -10.5 775) RED BLOOD CELL COUNT (BEAKER) (test code = 761) 3.37 M/ L 4.63-6.08 HEMOGLOBIN (BEAKER) (test code = 410) 11.2 GM/DL 13.7-17.5 HEMATOCRIT (BEAKER) (test code = 411) 33.6 % 40.1-51.0 MEAN CORPUSCULAR VOLUME (BEAKER) (test code = 99.7 fL 79 .0-92.2 753) MEAN CORPUSCULAR HEMOGLOBIN (BEAKER) (test code 33.2 pg 25.7-32.2 = 751) MEAN CORPUSCULAR HEMOGLOBIN CONC (BEAKER) (test 33.3 GM/DL 32.3-36.5 code = 752) RED CELL DISTRIBUTION WIDTH (BEAKER) (test code 14.7 % 11.6-14.4 = 412) PLATELET COUNT (BEAKER) (test code = 756) 113 K/CU MM 150-45 0 MEAN PLATELET VOLUME (BEAKER) (test code = 754) 9.8 fL 9.4-12.4 NUCLEATED RED BLOOD CELLS (BEAKER) (test code = 0 /100 WBC 0-0 413) NEUTROPHILS RELATIVE PERCENT (BEAKER) (test code 64 % = 429) LYMPHOCYTES RELATIVE PERCENT (BEAKER) (test code 18 % = 430) MONOCYTES RELATIVE PERCENT (BEAKER) (test code = 15 % 431) EOSINOPHILS RELATIVE PERCENT (BEAKER) (test code 2 % = 432) BASOPHILS RELATIVE PERCENT (BEAKER) (test code = 1 % 437) NEUTROPHILS ABSOLUTE COUNT (BEAKER) (test code = 3.50 K/ L 1.78-5.38 670) LYMPHOCYTES ABSOLUTE COUNT (BEAKER) (test code = 0.97 K/ L 1.32-3.57 414) MONOCYTES ABSOLUTE COUNT (BEAKER) (test code = 0.82 K/ L 0 .30-0.82 415) EOSINOPHILS ABSOLUTE COUNT (BEAKER) (test code = 0.11 K/ L 0.04-0.54 416) BASOPHILS ABSOLUTE COUNT (BEAKER) (test code = 0.04 K/ L 0 .01-0.08 417) IMMATURE GRANULOCYTES-RELATIVE PERCENT (BEAKER) 0 % 0-1 (test code = 2801) [id number] 18:58:00 Test Item Value Reference Range Comments PARTIAL THROMBOPLASTIN TIME (BEAKER) (test code 61.7 seconds 22.5-36.0 = 760) [id number] 09:22:00 Test Item Value Reference Range Comments PARTIAL THROMBOPLASTIN TIME (BEAKER) (test code 61.5 seconds 22.5-36.0 = 760) BASIC METABOLIC [id number] 02:14:00 Test Item Value Reference Range Comments SODIUM (BEAKER) (test 130 meq/L 136-145 code = 381) POTASSIUM (BEAKER) (test 4.1 meq/L 3.5-5.1 code = 379) CHLORIDE (BEAKER) (test 93 meq/L 98-107 code = 382) CO2 (BEAKER) (test code = 24 meq/L 22-29 355) BLOOD UREA NITROGEN 39 mg/dL 7-21 (BEAKER) (test code = 354) CREATININE (BEAKER) (test 6.56 mg/dL 0.57-1.25 code = 358) GLUCOSE RANDOM (BEAKER) 84 mg/dL 70-105 (test code = 652) CALCIUM (BEAKER) (test 8.5 mg/dL 8.4-10.2 code = 697) EGFR (BEAKER) (test code 11 mL/min/1.73 sq m EST IMATED GFR IS NOT = 1092) ACCURATE CREA TININE CLEARANCE IN PRE DICTING GLOMERULAR FILTR ATION RATE. ESTIMATED GFR IS NOT APPLICABLE F OR DIALYSIS PATIENT S. [id number] 01:43:00 Test Item Value Reference Range Comments PROTIME (BEAKER) (test code = 759) 21.8 seconds 11.7-14.7 INR (BEAKER) (test code = 370) 1.9 <=5.9 PARTIAL THROMBOPLASTIN TIME (BEAKER) (test code 62.7 seconds 22.5-36.0 = 760) RECOMMENDED COUMADIN/WARFARIN INR THERAPY RANGESSTANDARD DOSE: 2.0 - 3.0 Includes: PROPHYLAXIS forvenous thrombosis, systemic embolization; TREATMENT for venous thrombosis and/or pulmonary embolus.HIGH RISK: Target INR is 2.5-3.5 for patients with mechanical heart valves.[id number] 01:43:00 Test Item Value Reference Range Comments PARTIAL THROMBOPLASTIN TIME (BEAKER) (test code 62.7 seconds 22.5-36.0 = 760) CBC W/PLT COUNT & AUTO [id number] 01:32:00 Test Item Value Reference Range Comments WHITE BLOOD CELL COUNT (BEAKER) (test code = 5.9 K/ L 3.5 -10.5 775) RED BLOOD CELL COUNT (BEAKER) (test code = 761) 3.41 M/ L 4.63-6.08 HEMOGLOBIN (BEAKER) (test code = 410) 11.1 GM/DL 13.7-17.5 HEMATOCRIT (BEAKER) (test code = 411) 33.7 % 40.1-51.0 MEAN CORPUSCULAR VOLUME (BEAKER) (test code = 98.8 fL 79 .0-92.2 753) MEAN CORPUSCULAR HEMOGLOBIN (BEAKER) (test code 32.6 pg 25.7-32.2 = 751) MEAN CORPUSCULAR HEMOGLOBIN CONC (BEAKER) (test 32.9 GM/DL 32.3-36.5 code = 752) RED CELL DISTRIBUTION WIDTH (BEAKER) (test code 14.7 % 11.6-14.4 = 412) PLATELET COUNT (BEAKER) (test code = 756) 132 K/CU MM 150-45 0 MEAN PLATELET VOLUME (BEAKER) (test code = 754) 10.0 fL 9.4-12.4 NUCLEATED RED BLOOD CELLS (BEAKER) (test code = 0 /100 WBC 0-0 413) NEUTROPHILS RELATIVE PERCENT (BEAKER) (test code 64 % = 429) LYMPHOCYTES RELATIVE PERCENT (BEAKER) (test code 19 % = 430) MONOCYTES RELATIVE PERCENT (BEAKER) (test code = 14 % 431) EOSINOPHILS RELATIVE PERCENT (BEAKER) (test code 2 % = 432) BASOPHILS RELATIVE PERCENT (BEAKER) (test code = 1 % 437) NEUTROPHILS ABSOLUTE COUNT (BEAKER) (test code = 3.80 K/ L 1.78-5.38 670) LYMPHOCYTES ABSOLUTE COUNT (BEAKER) (test code = 1.14 K/ L 1.32-3.57 414) MONOCYTES ABSOLUTE COUNT (BEAKER) (test code = 0.80 K/ L 0 .30-0.82 415) EOSINOPHILS ABSOLUTE COUNT (BEAKER) (test code = 0.13 K/ L 0.04-0.54 416) BASOPHILS ABSOLUTE COUNT (BEAKER) (test code = 0.05 K/ L 0 .01-0.08 417) IMMATURE GRANULOCYTES-RELATIVE PERCENT (BEAKER) 0 % 0-1 (test code = 2801) [id number] 18:38:00 Test Item Value Reference Range Comments PARTIAL THROMBOPLASTIN TIME (BEAKER) (test code 38.9 seconds 22.5-36.0 = 760) Prior to initiating heparinPLATELET [id number] 18:17:00 Test Item Value Reference Range Comments PLATELET COUNT (BEAKER) (test code = 756) 115 K/CU MM 150-45 0 RAD, CHEST, 2 [id number] 18:05:00Reason for exam:->sob and pleural effusionFINAL REPORT Chest x-ray Clinical History: sob and pleural effusion Comparison: May 20, 2018 Views: 2 Chest x-ray:The cardiac and mediastinal silhouettes are prominent. There is no evidence of a pneumothorax. There is evidence of a moderate right pleural effusion. Th ere is no evidence of overt cardiac failure. [...] Sykes MDReport Verified Date/Time: 07/30/2018 18:05:46Reading Location: [facility] B1 [id number] Consult Reading Room C METABOLIC [id number] 05:26:00 Test Item Value Reference Range Comments SODIUM (BEAKER) (test 137 meq/L 136-145 code = 381) POTASSIUM (BEAKER) (test 3.9 meq/L 3.5-5.1 code = 379) CHLORIDE (BEAKER) (test 99 meq/L 98-107 code = 382) CO2 (BEAKER) (test code = 29 meq/L 22-29 355) BLOOD UREA NITROGEN 27 mg/dL 7-21 (BEAKER) (test code = 354) CREATININE (BEAKER) (test 5.10 mg/dL 0.57-1.25 code = 358) GLUCOSE RANDOM (BEAKER) 81 mg/dL 70-105 (test code = 652) CALCIUM (BEAKER) (test 8.7 mg/dL 8.4-10.2 code = 697) EGFR (BEAKER) (test code 14 mL/min/1.73 sq m EST IMATED GFR IS NOT = 1092) ACCURATE CREA TININE CLEARANCE IN PRE DICTING GLOMERULAR FILTR ATION RATE. ESTIMATED GFR IS NOT APPLICABLE F OR DIALYSIS PATIENT S. [id number] 05:25:00 Test Item Value Reference Range Comments PROTIME (BEAKER) (test code = 759) 21.4 seconds 11.7-14.7 INR (BEAKER) (test code = 370) 1.9 <=5.9 PARTIAL THROMBOPLASTIN TIME (BEAKER) (test code 38.6 seconds 22.5-36.0 = 760) RECOMMENDED COUMADIN/WARFARIN INR THERAPY RANGESSTANDARD DOSE: 2.0 - 3.0 Includes: PROPHYLAXIS forvenous thrombosis, systemic embolization; TREATMENT for venous thrombosis and/or pulmonary embolus.HIGH RISK: Target INR is 2.5-3.5 for patients with mechanical heart valves.PROTHROMBIN [id number] 05:24:00 Test Item Value Reference Range Comments PROTIME (BEAKER) (test code = 759) 21.4 seconds 11.7-14.7 INR (BEAKER) (test code = 370) 1.9 <=5.9 RECOMMENDED COUMADIN/WARFARIN INR THERAPY RANGESSTANDARD DOSE: 2.0 - 3.0 Includes: PROPHYLAXIS forvenous thrombosis, systemic embolization; TREATMENT for venous thrombosis and/or pulmonary embolus.HIGH RISK: Target INR is 2.5-3.5 for patients with mechanical heart valves.CBC W/PLT COUNT & AUTO DIFFERENTIAL 2018-07-30 05:12:00 Test Item Value Reference Range Comments WHITE BLOOD CELL COUNT (BEAKER) (test code = 775) 4.4 K/ L 3.5-10.5 RED BLOOD CELL COUNT (BEAKER) (test code = 761) 3.39 M/ L 4.63-6.08 HEMOGLOBIN (BEAKER) (test code = 410) 10.9 GM/DL 13.7-17.5 HEMATOCRIT (BEAKER) (test code = 411) 34.4 % 40.1-51.0 MEAN CORPUSCULAR VOLUME (BEAKER) (test code = 101.5 fL 79 .0-92.2 753) MEAN CORPUSCULAR HEMOGLOBIN (BEAKER) (test code = 32.2 pg 25.7-32.2 751) MEAN CORPUSCULAR HEMOGLOBIN CONC (BEAKER) (test 31.7 GM/DL 32.3-36.5 code = 752) RED CELL DISTRIBUTION WIDTH (BEAKER) (test code = 15.1 % 11.6-14.4 412) PLATELET COUNT (BEAKER) (test code = 756) 98 K/CU MM 150-45 0 MEAN PLATELET VOLUME (BEAKER) (test code = 754) 8.8 fL 9.4-12.4 NUCLEATED RED BLOOD CELLS (BEAKER) (test code = 0 /100 WBC 0-0 413) NEUTROPHILS RELATIVE PERCENT (BEAKER) (test code 58 % = 429) LYMPHOCYTES RELATIVE PERCENT (BEAKER) (test code 20 % = 430) MONOCYTES RELATIVE PERCENT (BEAKER) (test code = 19 % 431) EOSINOPHILS RELATIVE PERCENT (BEAKER) (test code 2 % = 432) BASOPHILS RELATIVE PERCENT (BEAKER) (test code = 1 % 437) NEUTROPHILS ABSOLUTE COUNT (BEAKER) (test code = 2.55 K/ L 1.78-5.38 670) LYMPHOCYTES ABSOLUTE COUNT (BEAKER) (test code = 0.87 K/ L 1.32-3.57 414) MONOCYTES ABSOLUTE COUNT (BEAKER) (test code = 0.82 K/ L 0 .30-0.82 415) EOSINOPHILS ABSOLUTE COUNT (BEAKER) (test code = 0.10 K/ L 0.04-0.54 416) BASOPHILS ABSOLUTE COUNT (BEAKER) (test code = 0.03 K/ L 0 .01-0.08 417) IMMATURE GRANULOCYTES-RELATIVE PERCENT (BEAKER) 1 % 0-1 (test code = 2801) HEPATITIS B SURFACE [id number] 12:09:00 Test Item Value Reference Range Comments HEPATITIS B SURFACE ANTIGEN (2) (BEAKER) (test Nonreactive N onreactive code = 2585) POCT-GLUCOSE [id number] 07:50:00 Test Item Value Reference Range Comments POC-GLUCOSE METER (BEAKER) 93 mg/dL 70-110 TESTE D AT [facility] [address] [place] [address] (test code = 1538) [facility] 77 [address] PT/[id number] 04:59:00 Test Item Value Reference Range Comments PROTIME (BEAKER) (test code = 759) 20.8 seconds 11.7-14.7 INR (BEAKER) (test code = 370) 1.8 <=5.9 PARTIAL THROMBOPLASTIN TIME (BEAKER) (test code 46.4 seconds 22.5-36.0 = 760) RECOMMENDED COUMADIN/WARFARIN INR THERAPY RANGESSTANDARD DOSE: 2.0 - 3.0 Includes: PROPHYLAXIS forvenous thrombosis, systemic embolization; TREATMENT for venous thrombosis and/or pulmonary embolus.HIGH RISK: Target INR is 2.5-3.5 for patients with mechanical heart valves.BASIC METABOLIC [id number] 04:59:00 Test Item Value Reference Range Comments SODIUM (BEAKER) (test 137 meq/L 136-145 code = 381) POTASSIUM (BEAKER) (test 3.4 meq/L 3.5-5.1 code = 379) CHLORIDE (BEAKER) (test 96 meq/L 98-107 code = 382) CO2 (BEAKER) (test code = 28 meq/L 22-29 355) BLOOD UREA NITROGEN 44 mg/dL 7-21 (BEAKER) (test code = 354) CREATININE (BEAKER) (test 7.25 mg/dL 0.57-1.25 code = 358) GLUCOSE RANDOM (BEAKER) 98 mg/dL 70-105 (test code = 652) CALCIUM (BEAKER) (test 8.8 mg/dL 8.4-10.2 code = 697) EGFR (BEAKER) (test code 9 mL/min/1.73 sq m OK MATED GFR IS NOT = 1092) ACCURATE CREA TININE CLEARANCE IN PRE DICTING GLOMERULAR FILTR ATION RATE. ESTIMATED GFR IS NOT APPLICABLE F OR DIALYSIS PATIENT S. CBC W/PLT COUNT & AUTO [id number] 04:51:00 Test Item Value Reference Range Comments WHITE BLOOD CELL COUNT (BEAKER) (test code = 5.1 K/ L 3.5 -10.5 775) RED BLOOD CELL COUNT (BEAKER) (test code = 761) 3.27 M/ L 4.63-6.08 HEMOGLOBIN (BEAKER) (test code = 410) 10.6 GM/DL 13.7-17.5 HEMATOCRIT (BEAKER) (test code = 411) 32.8 % 40.1-51.0 MEAN CORPUSCULAR VOLUME (BEAKER) (test code = 100.3 fL 79 .0-92.2 753) MEAN CORPUSCULAR HEMOGLOBIN (BEAKER) (test code 32.4 pg 25.7-32.2 = 751) MEAN CORPUSCULAR HEMOGLOBIN CONC (BEAKER) (test 32.3 GM/DL 32.3-36.5 code = 752) RED CELL DISTRIBUTION WIDTH (BEAKER) (test code 14.9 % 11.6-14.4 = 412) PLATELET COUNT (BEAKER) (test code = 756) 108 K/CU MM 150-45 0 MEAN PLATELET VOLUME (BEAKER) (test code = 754) 9.7 fL 9.4-12.4 NUCLEATED RED BLOOD CELLS (BEAKER) (test code = 0 /100 WBC 0-0 413) NEUTROPHILS RELATIVE PERCENT (BEAKER) (test code 56 % = 429) LYMPHOCYTES RELATIVE PERCENT (BEAKER) (test code 24 % = 430) MONOCYTES RELATIVE PERCENT (BEAKER) (test code = 17 % 431) EOSINOPHILS RELATIVE PERCENT (BEAKER) (test code 2 % = 432) BASOPHILS RELATIVE PERCENT (BEAKER) (test code = 1 % 437) NEUTROPHILS ABSOLUTE COUNT (BEAKER) (test code = 2.86 K/ L 1.78-5.38 670) LYMPHOCYTES ABSOLUTE COUNT (BEAKER) (test code = 1.21 K/ L 1.32-3.57 414) MONOCYTES ABSOLUTE COUNT (BEAKER) (test code = 0.87 K/ L 0 .30-0.82 415) EOSINOPHILS ABSOLUTE COUNT (BEAKER) (test code = 0.12 K/ L 0.04-0.54 416) BASOPHILS ABSOLUTE COUNT (BEAKER) (test code = 0.05 K/ L 0 .01-0.08 417) IMMATURE GRANULOCYTES-RELATIVE PERCENT (BEAKER) 0 % 0-1 (test code = 2801) AFB CULTURE + [id number] 16:13:00 Test Item Value Reference Range Comments CULTURE (BEAKER) (test code = No acid-fast bacilli isolated 1095) in 42 days AFB SMEAR (BEAKER) (test code No acid fast bacilli seen = 994) AFB CULTURE + [id number] 16:13:00 Test Item Value Reference Range Comments CULTURE (BEAKER) (test code = No acid-fast bacilli isolated 1095) in 42 days AFB SMEAR (BEAKER) (test code No acid fast bacilli seen = 994) FUNGUS CULTURE + [id number] 07:13:00 Test Item Value Reference Range Comments CULTURE (BEAKER) (test code = No fungus isolated in 28 days 1095) FUNGUS SMEAR (BEAKER) (test No fungi seen code = 1406) FUNGUS CULTURE + [id number] 07:13:00 Test Item Value Reference Range Comments CULTURE (BEAKER) (test code = No fungus isolated in 28 days 1095) FUNGUS SMEAR (BEAKER) (test No fungi seen code = 1406) TISSUE [id number] 19:17:00Surgical Pathology Report Case: [id number] Authorizing Provider: Juliana Martinez MD Collected: 05/23/2018 0825 Ordering Location: [facility] Received: 05/23/2018 0923 SERVICES Pathologist: Brigida Parks MD Specimen: SoftTissue, Other, LEFT GROIN - TISSUE BIOPSY SKIN AND SOFT TISSUE,GROIN,LEFT, BIOPSY: - ABSCESSES, GRANULOMAS AND CHRONIC INFLAMMATION - NEGATIVE FOR DYSPLASIA OR MALIGNANCY - AFB AND GMS STAINS ARE NEGATIVE (SEE COMMENT) Signing Pathologist Direct Phone Line: [phone] signed by Brigida Parks MD on 06/02/2018 at 7:17 PMCorrelation with culture studies is recommended.[id number] abscess groinLeft groin tissue biopsyReceived fresh labeled "soft tissue, other", description "left groin tissue biopsy" are two dark-porter, wrinkled,hair- bearing strips of skin measuring 1.5 and 2.6 cm in length, 0.3 cm in diameter and excised to a depth of 0.3 cm.Sectioning reveals no discrete masses.The specimen is entirely submitted in cassettesA1. DB/ewPOCT-GLUCOSE [id number] 08:51:00 Test Item Value Reference Range Comments POC-GLUCOSE METER (BEAKER) 101 mg/dL 70-110 TESTE D AT [address] (test code = 1538) [facility] 77 030 CBC W/PLT COUNT & AUTO [id number] 06:01:00 Test Item Value Reference Range Comments WHITE BLOOD CELL COUNT (BEAKER) (test code = 7.1 K/ L 3.5 -10.5 775) RED BLOOD CELL COUNT (BEAKER) (test code = 761) 3.50 M/ L 4.63-6.08 HEMOGLOBIN (BEAKER) (test code = 410) 10.7 GM/DL 13.7-17.5 HEMATOCRIT (BEAKER) (test code = 411) 33.4 % 40.1-51.0 MEAN CORPUSCULAR VOLUME (BEAKER) (test code = 95.4 fL 79 .0-92.2 753) MEAN CORPUSCULAR HEMOGLOBIN (BEAKER) (test code 30.6 pg 25.7-32.2 = 751) MEAN CORPUSCULAR HEMOGLOBIN CONC (BEAKER) (test 32.0 GM/DL 32.3-36.5 code = 752) RED CELL DISTRIBUTION WIDTH (BEAKER) (test code 17.5 % 11.6-14.4 = 412) PLATELET COUNT (BEAKER) (test code = 756) 159 K/CU MM 150-45 0 MEAN PLATELET VOLUME (BEAKER) (test code = 754) 9.8 fL 9.4-12.4 NUCLEATED RED BLOOD CELLS (BEAKER) (test code = 1 /100 WBC 0-0 413) NEUTROPHILS RELATIVE PERCENT (BEAKER) (test code 66 % = 429) LYMPHOCYTES RELATIVE PERCENT (BEAKER) (test code 20 % = 430) MONOCYTES RELATIVE PERCENT (BEAKER) (test code = 11 % 431) EOSINOPHILS RELATIVE PERCENT (BEAKER) (test code 1 % = 432) BASOPHILS RELATIVE PERCENT (BEAKER) (test code = 1 % 437) NEUTROPHILS ABSOLUTE COUNT (BEAKER) (test code = 4.70 K/ L 1.78-5.38 670) LYMPHOCYTES ABSOLUTE COUNT (BEAKER) (test code = 1.39 K/ L 1.32-3.57 414) MONOCYTES ABSOLUTE COUNT (BEAKER) (test code = 0.78 K/ L 0 .30-0.82 415) EOSINOPHILS ABSOLUTE COUNT (BEAKER) (test code = 0.10 K/ L 0.04-0.54 416) BASOPHILS ABSOLUTE COUNT (BEAKER) (test code = 0.08 K/ L 0 .01-0.08 417) IMMATURE GRANULOCYTES-RELATIVE PERCENT (BEAKER) 1 % 0-1 (test code = 2801) PROTHROMBIN [id number] 05:51:00 Test Item Value Reference Range Comments PROTIME (BEAKER) (test code = 759) 25.9 seconds 11.7-14.7 INR (BEAKER) (test code = 370) 2.4 <=5.9 RECOMMENDED COUMADIN/WARFARIN INR THERAPY RANGESSTANDARD DOSE: 2.0 - 3.0 Includes: PROPHYLAXIS forvenous thrombosis, systemic embolization; TREATMENT for venous thrombosis and/or pulmonary embolus.HIGH RISK: Target INR is 2.5-3.5 for patients with mechanical heart valves.BASIC METABOLIC [id number] 05:46:00 Test Item Value Reference Range Comments SODIUM (BEAKER) (test 134 meq/L 136-145 code = 381) POTASSIUM (BEAKER) (test 4.1 meq/L 3.5-5.1 code = 379) CHLORIDE (BEAKER) (test 98 meq/L 98-107 code = 382) CO2 (BEAKER) (test code = 27 meq/L 22-29 355) BLOOD UREA NITROGEN 28 mg/dL 7-21 (BEAKER) (test code = 354) CREATININE (BEAKER) (test 5.07 mg/dL 0.57-1.25 code = 358) GLUCOSE RANDOM (BEAKER) 110 mg/dL 70-105 (test code = 652) CALCIUM (BEAKER) (test 9.0 mg/dL 8.4-10.2 code = 697) EGFR (BEAKER) (test code 14 mL/min/1.73 sq m EST IMATED GFR IS NOT = 1092) ACCURATE CREA TININE CLEARANCE IN PRE DICTING GLOMERULAR FILTR ATION RATE. ESTIMATED GFR IS NOT APPLICABLE F OR DIALYSIS PATIENT S. POCT-GLUCOSE [id number] 20:34:00 Test Item Value Reference Range Comments POC-GLUCOSE METER (BEAKER) 261 mg/dL 70-110 TESTE D AT [address] (test code = 1538) [place] [id number] POCT-GLUCOSE [id number] 18:12:00 Test Item Value Reference Range Comments POC-GLUCOSE METER (BEAKER) 139 mg/dL 70-110 TESTE D AT [address] (test code = 1538) [place] [address] POCT-GLUCOSE [id number] 11:51:00 Test Item Value Reference Range Comments POC-GLUCOSE METER (BEAKER) 147 mg/dL 70-110 TESTE D AT [address] (test code = 1538) [place] [address]30 POCT-GLUCOSE [id number] 08:42:00 Test Item Value Reference Range Comments POC-GLUCOSE METER (BEAKER) 104 mg/dL 70-110 TESTE D AT [address] (test code = 1538) [place] [address] CBC W/PLT COUNT & AUTO [id number] 06:56:00 Test Item Value Reference Range Comments WHITE BLOOD CELL COUNT (BEAKER) (test code = 8.0 K/ L 3.5 -10.5 775) RED BLOOD CELL COUNT (BEAKER) (test code = 761) 3.40 M/ L 4.63-6.08 HEMOGLOBIN (BEAKER) (test code = 410) 10.2 GM/DL 13.7-17.5 HEMATOCRIT (BEAKER) (test code = 411) 32.0 % 40.1-51.0 MEAN CORPUSCULAR VOLUME (BEAKER) (test code = 94.1 fL 79 .0-92.2 753) MEAN CORPUSCULAR HEMOGLOBIN (BEAKER) (test code 30.0 pg 25.7-32.2 = 751) MEAN CORPUSCULAR HEMOGLOBIN CONC (BEAKER) (test 31.9 GM/DL 32.3-36.5 code = 752) RED CELL DISTRIBUTION WIDTH (BEAKER) (test code 17.1 % 11.6-14.4 = 412) PLATELET COUNT (BEAKER) (test code = 756) 167 K/CU MM 150-45 0 MEAN PLATELET VOLUME (BEAKER) (test code = 754) 9.3 fL 9.4-12.4 NUCLEATED RED BLOOD CELLS (BEAKER) (test code = 1 /100 WBC 0-0 413) NEUTROPHILS RELATIVE PERCENT (BEAKER) (test code 69 % = 429) LYMPHOCYTES RELATIVE PERCENT (BEAKER) (test code 17 % = 430) MONOCYTES RELATIVE PERCENT (BEAKER) (test code = 11 % 431) EOSINOPHILS RELATIVE PERCENT (BEAKER) (test code 2 % = 432) BASOPHILS RELATIVE PERCENT (BEAKER) (test code = 1 % 437) NEUTROPHILS ABSOLUTE COUNT (BEAKER) (test code = 5.54 K/ L 1.78-5.38 670) LYMPHOCYTES ABSOLUTE COUNT (BEAKER) (test code = 1.33 K/ L 1.32-3.57 414) MONOCYTES ABSOLUTE COUNT (BEAKER) (test code = 0.87 K/ L 0 .30-0.82 415) EOSINOPHILS ABSOLUTE COUNT (BEAKER) (test code = 0.12 K/ L 0.04-0.54 416) BASOPHILS ABSOLUTE COUNT (BEAKER) (test code = 0.06 K/ L 0 .01-0.08 417) IMMATURE GRANULOCYTES-RELATIVE PERCENT (BEAKER) 1 % 0-1 (test code = 2801) BASIC METABOLIC [id number] 06:49:00 Test Item Value Reference Range Comments SODIUM (BEAKER) (test 130 meq/L 136-145 code = 381) POTASSIUM (BEAKER) (test 4.3 meq/L 3.5-5.1 code = 379) CHLORIDE (BEAKER) (test 93 meq/L 98-107 code = 382) CO2 (BEAKER) (test code = 25 meq/L 22-29 355) BLOOD UREA NITROGEN 41 mg/dL 7-21 (BEAKER) (test code = 354) CREATININE (BEAKER) (test 6.65 mg/dL 0.57-1.25 code = 358) GLUCOSE RANDOM (BEAKER) 113 mg/dL 70-105 (test code = 652) CALCIUM (BEAKER) (test 8.9 mg/dL 8.4-10.2 code = 697) EGFR (BEAKER) (test code 10 mL/min/1.73 sq m EST IMATED GFR IS NOT = 1092) ACCURATE CREA TININE CLEARANCE IN PRE DICTING GLOMERULAR FILTR ATION RATE. ESTIMATED GFR IS NOT APPLICABLE F OR DIALYSIS PATIENT S. PROTHROMBIN [id number] 06:46:00 Test Item Value Reference Range Comments PROTIME (BEAKER) (test code = 759) 26.9 seconds 11.7-14.7 INR (BEAKER) (test code = 370) 2.5 <=5.9 RECOMMENDED COUMADIN/WARFARIN INR THERAPY RANGESSTANDARD DOSE: 2.0 - 3.0 Includes: PROPHYLAXIS forvenous thrombosis, systemic embolization; TREATMENT for venous thrombosis and/or pulmonary embolus.HIGH RISK: Target INR is 2.5-3.5 for patients with mechanical heart valves.ANAEROBIC [id number] 00:38:00 Test Item Value Reference Range Comments CULTURE (BEAKER) (test code = 1095) No anaerobes isolated ANAEROBIC [id number] 00:38:00 Test Item Value Reference Range Comments CULTURE (BEAKER) (test code = 1095) No anaerobes isolated POCT-GLUCOSE [id number] 20:43:00 Test Item Value Reference Range Comments POC-GLUCOSE METER (BEAKER) 124 mg/dL 70-110 TESTE D AT [facility] [address] [facility] (test code = 1538) [place] [address] POCT-GLUCOSE [id number] 17:17:00 Test Item Value Reference Range Comments POC-GLUCOSE METER (BEAKER) 190 mg/dL 70-110 TESTE D AT [facility] [address] [facility] (test code = 1538) [place] [address] POCT-GLUCOSE [id number] 11:54:00 Test Item Value Reference Range Comments POC-GLUCOSE METER (BEAKER) 195 mg/dL 70-110 TESTE D AT [facility] [address] [facility] (test code = 1538) [facility] [address] C. DIFFICILE GDH [id number] 11:16:00 Test Item Value Reference Range Comments CDT TOXIN (test code = Negative Negative [id number]) CDT GDH ANTIGEN (test code = Negative Negative No indication of Clostridium [id number]) difficile infect ion and no colonization. D iscontinue enteric isolatio n and therapy. Testing performed by [employer] Rapid Cassette Assay. For GDH, published sensitivity of the assay is 98.7% compared to cytotoxicity testing. For Toxin AB, published sensitivity is 87.8% and specificity 99.4% compared to cytotoxicity testing.Verification of kit performance was done by the [facility] Microbiology Lab prior to clinical use.SURGICALLY OBTAINED CULTURE + GRAM [id number] 09:22:00 Test Item Value Reference Range Comments CULTURE (BEAKER) (test COAGULASE NEGATIVE <1+ Co agulase negative code = 1095) STAPHYLOCOCCUS Staphylococcus Clindamycin (test code = 10) Erythromycin (test code = 4) Linezolid (test code = 40) Nitrofurantoin (test code = 23) Oxacillin (test code = 14) Rifampin (test code = 43) Tetracycline (test code = 2) Trimethoprim + Sulfamethoxazole (test code = 47) Vancomycin (test code = 13) GRAM STAIN RESULT 1+ WBCs (BEAKER) (test code = 1123) GRAM STAIN RESULT No organisms seen (BEAKER) (test code = 891150) SURGICALLY OBTAINED CULTURE + GRAM [id number] 09:20:00 Test Item Value Reference Range Comments CULTURE (BEAKER) (test code = 1095) No growth GRAM STAIN RESULT (BEAKER) (test code = 4+ WBCs 1123) GRAM STAIN RESULT (BEAKER) (test code = No organisms seen 49960) POCT-GLUCOSE [id number] 08:21:00 Test Item Value Reference Range Comments POC-GLUCOSE METER (BEAKER) 101 mg/dL 70-110 TESTE D AT [facility] [address] [facility] (test code = 1538) [facility] [phone] BASIC METABOLIC [id number] 07:57:00 Test Item Value Reference Range Comments SODIUM (BEAKER) (test 135 meq/L 136-145 code = 381) POTASSIUM (BEAKER) (test 3.9 meq/L 3.5-5.1 code = 379) CHLORIDE (BEAKER) (test 96 meq/L 98-107 code = 382) CO2 (BEAKER) (test code = 26 meq/L 22-29 355) BLOOD UREA NITROGEN 29 mg/dL 7-21 (BEAKER) (test code = 354) CREATININE (BEAKER) (test 5.49 mg/dL 0.57-1.25 code = 358) GLUCOSE RANDOM (BEAKER) 100 mg/dL 70-105 (test code = 652) CALCIUM (BEAKER) (test 9.1 mg/dL 8.4-10.2 code = 697) EGFR (BEAKER) (test code 13 mL/min/1.73 sq m EST IMATED GFR IS NOT = 1092) ACCURATE CREA TININE CLEARANCE IN PRE DICTING GLOMERULAR FILTR ATION RATE. ESTIMATED GFR IS NOT APPLICABLE F OR DIALYSIS PATIENT S. PROTHROMBIN [id number] 06:36:00 Test Item Value Reference Range Comments PROTIME (BEAKER) (test code = 759) 25.3 seconds 11.7-14.7 INR (BEAKER) (test code = 370) 2.3 <=5.9 RECOMMENDED COUMADIN/WARFARIN INR THERAPY RANGESSTANDARD DOSE: 2.0 - 3.0 Includes: PROPHYLAXIS forvenous thrombosis, systemic embolization; TREATMENT for venous thrombosis and/or pulmonary embolus.HIGH RISK: Target INR is 2.5-3.5 for patients with mechanical heart valves.CBC W/PLT COUNT & AUTO DIFFERENTIAL 2018-05-26 06:27:00 Test Item Value Reference Range Comments WHITE BLOOD CELL COUNT (BEAKER) (test code = 7.3 K/ L 3.5 -10.5 775) RED BLOOD CELL COUNT (BEAKER) (test code = 761) 3.29 M/ L 4.63-6.08 HEMOGLOBIN (BEAKER) (test code = 410) 9.8 GM/DL 13.7-17.5 HEMATOCRIT (BEAKER) (test code = 411) 30.9 % 40.1-51.0 MEAN CORPUSCULAR VOLUME (BEAKER) (test code = 93.9 fL 79 .0-92.2 753) MEAN CORPUSCULAR HEMOGLOBIN (BEAKER) (test code 29.8 pg 25.7-32.2 = 751) MEAN CORPUSCULAR HEMOGLOBIN CONC (BEAKER) (test 31.7 GM/DL 32.3-36.5 code = 752) RED CELL DISTRIBUTION WIDTH (BEAKER) (test code 16.9 % 11.6-14.4 = 412) PLATELET COUNT (BEAKER) (test code = 756) 153 K/CU MM 150-45 0 MEAN PLATELET VOLUME (BEAKER) (test code = 754) 9.1 fL 9.4-12.4 NUCLEATED RED BLOOD CELLS (BEAKER) (test code = 0 /100 WBC 0-0 413) NEUTROPHILS RELATIVE PERCENT (BEAKER) (test code 66 % = 429) LYMPHOCYTES RELATIVE PERCENT (BEAKER) (test code 16 % = 430) MONOCYTES RELATIVE PERCENT (BEAKER) (test code = 15 % 431) EOSINOPHILS RELATIVE PERCENT (BEAKER) (test code 2 % = 432) BASOPHILS RELATIVE PERCENT (BEAKER) (test code = 1 % 437) NEUTROPHILS ABSOLUTE COUNT (BEAKER) (test code = 4.75 K/ L 1.78-5.38 670) LYMPHOCYTES ABSOLUTE COUNT (BEAKER) (test code = 1.14 K/ L 1.32-3.57 414) MONOCYTES ABSOLUTE COUNT (BEAKER) (test code = 1.05 K/ L 0 .30-0.82 415) EOSINOPHILS ABSOLUTE COUNT (BEAKER) (test code = 0.13 K/ L 0.04-0.54 416) BASOPHILS ABSOLUTE COUNT (BEAKER) (test code = 0.07 K/ L 0 .01-0.08 417) IMMATURE GRANULOCYTES-RELATIVE PERCENT (BEAKER) 2 % 0-1 (test code = 2801) POCT-GLUCOSE [id number] 21:40:00 Test Item Value Reference Range Comments POC-GLUCOSE METER (BEAKER) 176 mg/dL 70-110 TESTE D AT [address] (test code = 1538) [place] [id number] POCT-GLUCOSE [id number] 16:07:00 Test Item Value Reference Range Comments POC-GLUCOSE METER (BEAKER) 120 mg/dL 70-110 TESTE D AT [address] (test code = 1538) [place] [phone] POCT-GLUCOSE [id number] 08:31:00 Test Item Value Reference Range Comments POC-GLUCOSE METER (BEAKER) 119 mg/dL 70-110 TESTE D AT [facility] [address] (test code = 1538) [facility] [address] BASIC METABOLIC [id number] 08:19:00 Test Item Value Reference Range Comments SODIUM (BEAKER) (test 133 meq/L 136-145 code = 381) POTASSIUM (BEAKER) (test 3.8 meq/L 3.5-5.1 code = 379) CHLORIDE (BEAKER) (test 97 meq/L 98-107 code = 382) CO2 (BEAKER) (test code = 26 meq/L 22-29 355) BLOOD UREA NITROGEN 19 mg/dL 7-21 (BEAKER) (test code = 354) CREATININE (BEAKER) (test 4.05 mg/dL 0.57-1.25 code = 358) GLUCOSE RANDOM (BEAKER) 107 mg/dL 70-105 (test code = 652) CALCIUM (BEAKER) (test 9.0 mg/dL 8.4-10.2 code = 697) EGFR (BEAKER) (test code 18 mL/min/1.73 sq m EST IMATED GFR IS NOT = 1092) ACCURATE CREA TININE CLEARANCE IN PRE DICTING GLOMERULAR FILTR ATION RATE. ESTIMATED GFR IS NOT APPLICABLE F OR DIALYSIS PATIENT S. VANCOMYCIN LEVEL, [id number] 08:16:00 Test Item Value Reference Range Comments VANCOMYCIN RANDOM (BEAKER) (test code = 523) 17.6 ug/mL Reference Range: No NormalsPROTHROMBIN [id number] 07:21:00 Test Item Value Reference Range Comments PROTIME (BEAKER) (test code = 759) 22.0 seconds 11.7-14.7 INR (BEAKER) (test code = 370) 1.9 <=5.9 RECOMMENDED COUMADIN/WARFARIN INR THERAPY RANGESSTANDARD DOSE: 2.0 - 3.0 Includes: PROPHYLAXIS forvenous thrombosis, systemic embolization; TREATMENT for venous thrombosis and/or pulmonary embolus.HIGH RISK: Target INR is 2.5-3.5 for patients with mechanical heart valves.CBC W/PLT COUNT & AUTO DIFFERENTIAL 2018-05-25 07:02:00 Test Item Value Reference Range Comments WHITE BLOOD CELL COUNT (BEAKER) (test code = 8.2 K/ L 3.5 -10.5 775) RED BLOOD CELL COUNT (BEAKER) (test code = 761) 3.46 M/ L 4.63-6.08 HEMOGLOBIN (BEAKER) (test code = 410) 10.4 GM/DL 13.7-17.5 HEMATOCRIT (BEAKER) (test code = 411) 32.8 % 40.1-51.0 MEAN CORPUSCULAR VOLUME (BEAKER) (test code = 94.8 fL 79 .0-92.2 753) MEAN CORPUSCULAR HEMOGLOBIN (BEAKER) (test code 30.1 pg 25.7-32.2 = 751) MEAN CORPUSCULAR HEMOGLOBIN CONC (BEAKER) (test 31.7 GM/DL 32.3-36.5 code = 752) RED CELL DISTRIBUTION WIDTH (BEAKER) (test code 16.7 % 11.6-14.4 = 412) PLATELET COUNT (BEAKER) (test code = 756) 167 K/CU MM 150-45 0 MEAN PLATELET VOLUME (BEAKER) (test code = 754) 9.7 fL 9.4-12.4 NUCLEATED RED BLOOD CELLS (BEAKER) (test code = 0 /100 WBC 0-0 413) NEUTROPHILS RELATIVE PERCENT (BEAKER) (test code 69 % = 429) LYMPHOCYTES RELATIVE PERCENT (BEAKER) (test code 13 % = 430) MONOCYTES RELATIVE PERCENT (BEAKER) (test code = 12 % 431) EOSINOPHILS RELATIVE PERCENT (BEAKER) (test code 2 % = 432) BASOPHILS RELATIVE PERCENT (BEAKER) (test code = 1 % 437) NEUTROPHILS ABSOLUTE COUNT (BEAKER) (test code = 5.72 K/ L 1.78-5.38 670) LYMPHOCYTES ABSOLUTE COUNT (BEAKER) (test code = 1.07 K/ L 1.32-3.57 414) MONOCYTES ABSOLUTE COUNT (BEAKER) (test code = 1.02 K/ L 0 .30-0.82 415) EOSINOPHILS ABSOLUTE COUNT (BEAKER) (test code = 0.18 K/ L 0.04-0.54 416) BASOPHILS ABSOLUTE COUNT (BEAKER) (test code = 0.07 K/ L 0 .01-0.08 417) IMMATURE GRANULOCYTES-RELATIVE PERCENT (BEAKER) 2 % 0-1 (test code = 2801) BLOOD [id number] 06:00:00 Test Item Value Reference Range Comments CULTURE (BEAKER) (test code = 1095) No growth in 5 days BLOOD [id number] 00:00:00 Test Item Value Reference Range Comments CULTURE (BEAKER) (test code = 1095) No growth in 5 days POCT-GLUCOSE [id number] 22:05:00 Test Item Value Reference Range Comments POC-GLUCOSE METER (BEAKER) 169 mg/dL 70-110 TESTE D AT [address] (test code = 1538) [place] [id number] POCT-GLUCOSE [id number] 18:20:00 Test Item Value Reference Range Comments POC-GLUCOSE METER (BEAKER) 110 mg/dL 70-110 TESTE D AT [address] (test code = 1538) [place] [id number] POCT-GLUCOSE [id number] 17:17:00 Test Item Value Reference Range Comments POC-GLUCOSE METER (BEAKER) 99 mg/dL 70-110 TESTE D AT [address] (test code = 1538) [place] [id number] SPIN/CONCENTRATION [id number] 14:49:00 Test Item Value Reference Range Comments CONCENTRATION CHARGED (BEAKER) (test code = 2657) Done SPIN/CONCENTRATION [id number] 14:49:00 Test Item Value Reference Range Comments CONCENTRATION CHARGED (BEAKER) (test code = 2657) Done POCT-GLUCOSE [id number] 12:13:00 Test Item Value Reference Range Comments POC-GLUCOSE METER (BEAKER) 188 mg/dL 70-110 TESTE D AT [address] (test code = 1538) [place] [id number] BASIC METABOLIC [id number] 09:56:00 Test Item Value Reference Range Comments SODIUM (BEAKER) (test 132 meq/L 136-145 code = 381) POTASSIUM (BEAKER) (test 4.1 meq/L 3.5-5.1 code = 379) CHLORIDE (BEAKER) (test 96 meq/L 98-107 code = 382) CO2 (BEAKER) (test code = 24 meq/L 22-29 355) BLOOD UREA NITROGEN 30 mg/dL 7-21 (BEAKER) (test code = 354) CREATININE (BEAKER) (test 5.66 mg/dL 0.57-1.25 code = 358) GLUCOSE RANDOM (BEAKER) 98 mg/dL 70-105 (test code = 652) CALCIUM (BEAKER) (test 8.7 mg/dL 8.4-10.2 code = 697) EGFR (BEAKER) (test code 12 mL/min/1.73 sq m EST IMATED GFR IS NOT = 1092) ACCURATE CREA TININE CLEARANCE IN PRE DICTING GLOMERULAR FILTR ATION RATE. ESTIMATED GFR IS NOT APPLICABLE F OR DIALYSIS PATIENT S. POCT-GLUCOSE [id number] 07:45:00 Test Item Value Reference Range Comments POC-GLUCOSE METER (BEAKER) 108 mg/dL 70-110 TESTE D AT [facility] [address] (test code = 1538) [place] [address] CBC W/PLT COUNT & AUTO [id number] 07:00:00 Test Item Value Reference Range Comments WHITE BLOOD CELL COUNT (BEAKER) (test code = 11.1 K/ L 3.5 -10.5 775) RED BLOOD CELL COUNT (BEAKER) (test code = 761) 3.30 M/ L 4.63-6.08 HEMOGLOBIN (BEAKER) (test code = 410) 10.0 GM/DL 13.7-17.5 HEMATOCRIT (BEAKER) (test code = 411) 31.4 % 40.1-51.0 MEAN CORPUSCULAR VOLUME (BEAKER) (test code = 95.2 fL 79 .0-92.2 753) MEAN CORPUSCULAR HEMOGLOBIN (BEAKER) (test code 30.3 pg 25.7-32.2 = 751) MEAN CORPUSCULAR HEMOGLOBIN CONC (BEAKER) (test 31.8 GM/DL 32.3-36.5 code = 752) RED CELL DISTRIBUTION WIDTH (BEAKER) (test code 16.3 % 11.6-14.4 = 412) PLATELET COUNT (BEAKER) (test code = 756) 166 K/CU MM 150-45 0 MEAN PLATELET VOLUME (BEAKER) (test code = 754) 9.4 fL 9.4-12.4 NUCLEATED RED BLOOD CELLS (BEAKER) (test code = 0 /100 WBC 0-0 413) NEUTROPHILS RELATIVE PERCENT (BEAKER) (test code 72 % = 429) LYMPHOCYTES RELATIVE PERCENT (BEAKER) (test code 11 % = 430) MONOCYTES RELATIVE PERCENT (BEAKER) (test code = 12 % 431) EOSINOPHILS RELATIVE PERCENT (BEAKER) (test code 2 % = 432) BASOPHILS RELATIVE PERCENT (BEAKER) (test code = 1 % 437) NEUTROPHILS ABSOLUTE COUNT (BEAKER) (test code = 7.96 K/ L 1.78-5.38 670) LYMPHOCYTES ABSOLUTE COUNT (BEAKER) (test code = 1.25 K/ L 1.32-3.57 414) MONOCYTES ABSOLUTE COUNT (BEAKER) (test code = 1.27 K/ L 0 .30-0.82 415) EOSINOPHILS ABSOLUTE COUNT (BEAKER) (test code = 0.23 K/ L 0.04-0.54 416) BASOPHILS ABSOLUTE COUNT (BEAKER) (test code = 0.07 K/ L 0 .01-0.08 417) IMMATURE GRANULOCYTES-RELATIVE PERCENT (BEAKER) 3 % 0-1 (test code = 2801) PROTHROMBIN [id number] 06:47:00 Test Item Value Reference Range Comments PROTIME (BEAKER) (test code = 759) 20.7 seconds 11.7-14.7 INR (BEAKER) (test code = 370) 1.8 <=5.9 RECOMMENDED COUMADIN/WARFARIN INR THERAPY RANGESSTANDARD DOSE: 2.0 - 3.0 Includes: PROPHYLAXIS forvenous thrombosis, systemic embolization; TREATMENT for venous thrombosis and/or pulmonary embolus.HIGH RISK: Target INR is 2.5-3.5 for patients with mechanical heart valves.POCT-GLUCOSE [id number] 20:42:00 Test Item Value Reference Range Comments POC-GLUCOSE METER (BEAKER) 134 mg/dL 70-110 TESTE D AT [facility] [address] [facility] (test code = 1538) [place] [address] POCT-GLUCOSE [id number] 13:29:00 Test Item Value Reference Range Comments POC-GLUCOSE METER (BEAKER) 209 mg/dL 70-110 TESTE D AT [facility] [address] [facility] (test code = 1538) [place] [address] POCT-GLUCOSE [id number] 08:53:00 Test Item Value Reference Range Comments POC-GLUCOSE METER (BEAKER) 103 mg/dL 70-110 TESTE D AT [facility] [address] (test code = 1538) [place] [address] BASIC METABOLIC [id number] 07:47:00 Test Item Value Reference Range Comments SODIUM (BEAKER) (test 136 meq/L 136-145 code = 381) POTASSIUM (BEAKER) (test 4.0 meq/L 3.5-5.1 code = 379) CHLORIDE (BEAKER) (test 100 meq/L 98-107 code = 382) CO2 (BEAKER) (test code = 27 meq/L 22-29 355) BLOOD UREA NITROGEN 22 mg/dL 7-21 (BEAKER) (test code = 354) CREATININE (BEAKER) (test 4.63 mg/dL 0.57-1.25 code = 358) GLUCOSE RANDOM (BEAKER) 111 mg/dL 70-105 (test code = 652) CALCIUM (BEAKER) (test 8.7 mg/dL 8.4-10.2 code = 697) EGFR (BEAKER) (test code 16 mL/min/1.73 sq m EST IMATED GFR IS NOT = 1092) ACCURATE CREA TININE CLEARANCE IN PRE DICTING GLOMERULAR FILTR ATION RATE. ESTIMATED GFR IS NOT APPLICABLE F OR DIALYSIS PATIENT S. WOUND CULTURE + GRAM [id number] 07:44:00 Test Item Value Reference Range Comments CULTURE (BEAKER) (test code = 1095) No growth GRAM STAIN RESULT (BEAKER) (test code = No WBCs 1123) GRAM STAIN RESULT (BEAKER) (test code = No organisms seen 29582) [id number] 07:38:00 Test Item Value Reference Range Comments PHOSPHORUS (BEAKER) (test code = 604) 3.2 mg/dL 2.3-4.7 CBC W/PLT COUNT & AUTO [id number] 06:35:00 Test Item Value Reference Range Comments WHITE BLOOD CELL COUNT (BEAKER) (test code = 11.0 K/ L 3.5 -10.5 775) RED BLOOD CELL COUNT (BEAKER) (test code = 761) 3.30 M/ L 4.63-6.08 HEMOGLOBIN (BEAKER) (test code = 410) 9.9 GM/DL 13.7-17.5 HEMATOCRIT (BEAKER) (test code = 411) 31.2 % 40.1-51.0 MEAN CORPUSCULAR VOLUME (BEAKER) (test code = 94.5 fL 79 .0-92.2 753) MEAN CORPUSCULAR HEMOGLOBIN (BEAKER) (test code 30.0 pg 25.7-32.2 = 751) MEAN CORPUSCULAR HEMOGLOBIN CONC (BEAKER) (test 31.7 GM/DL 32.3-36.5 code = 752) RED CELL DISTRIBUTION WIDTH (BEAKER) (test code 16.1 % 11.6-14.4 = 412) PLATELET COUNT (BEAKER) (test code = 756) 184 K/CU MM 150-45 0 MEAN PLATELET VOLUME (BEAKER) (test code = 754) 9.5 fL 9.4-12.4 NUCLEATED RED BLOOD CELLS (BEAKER) (test code = 0 /100 WBC 0-0 413) NEUTROPHILS RELATIVE PERCENT (BEAKER) (test code 79 % = 429) LYMPHOCYTES RELATIVE PERCENT (BEAKER) (test code 8 % = 430) MONOCYTES RELATIVE PERCENT (BEAKER) (test code = 8 % 431) EOSINOPHILS RELATIVE PERCENT (BEAKER) (test code 2 % = 432) BASOPHILS RELATIVE PERCENT (BEAKER) (test code = 1 % 437) NEUTROPHILS ABSOLUTE COUNT (BEAKER) (test code = 8.70 K/ L 1.78-5.38 670) LYMPHOCYTES ABSOLUTE COUNT (BEAKER) (test code = 0.86 K/ L 1.32-3.57 414) MONOCYTES ABSOLUTE COUNT (BEAKER) (test code = 0.91 K/ L 0 .30-0.82 415) EOSINOPHILS ABSOLUTE COUNT (BEAKER) (test code = 0.24 K/ L 0.04-0.54 416) BASOPHILS ABSOLUTE COUNT (BEAKER) (test code = 0.08 K/ L 0 .01-0.08 417) IMMATURE GRANULOCYTES-RELATIVE PERCENT (BEAKER) 2 % 0-1 (test code = 2801) PROTHROMBIN [id number] 06:32:00 Test Item Value Reference Range Comments PROTIME (BEAKER) (test code = 759) 23.2 seconds 11.7-14.7 INR (BEAKER) (test code = 370) 2.1 <=5.9 RECOMMENDED COUMADIN/WARFARIN INR THERAPY RANGESSTANDARD DOSE: 2.0 - 3.0 Includes: PROPHYLAXIS forvenous thrombosis, systemic embolization; TREATMENT for venous thrombosis and/or pulmonary embolus.HIGH RISK: Target INR is 2.5-3.5 for patients with mechanical heart valves.POCT-GLUCOSE [id number] 21:21:00 Test Item Value Reference Range Comments POC-GLUCOSE METER (BEAKER) 177 mg/dL 70-110 TESTE D AT [address] (test code = 1538) [place] [address] POCT-GLUCOSE [id number] 17:53:00 Test Item Value Reference Range Comments POC-GLUCOSE METER (BEAKER) 89 mg/dL 70-110 TESTE D AT [address] (test code = 1538) [place] [address] IRON, TIBC, % SAT. (WITHOUT FERRITIN)2018-05-22 17:45:00 Test Item Value Reference Range Comments IRON (BEAKER) (test code = 547) 63 ug/dL 40-160 TOTAL IRON BINDING CAPACITY (BEAKER) (test code = 203 ug/dL 250-450 769) IRON % SATURATION (2) (BEAKER) (test code = 2590) 31 % 20-55 [id number] 16:07:00 Test Item Value Reference Range Comments PHOSPHORUS (BEAKER) (test code = 604) 5.4 mg/dL 2.3-4.7 POCT-GLUCOSE [id number] 12:41:00 Test Item Value Reference Range Comments POC-GLUCOSE METER (BEAKER) 110 mg/dL 70-110 TESTE D AT [address] (test code = 1538) [place] [address] POCT-GLUCOSE [id number] 07:00:00 Test Item Value Reference Range Comments POC-GLUCOSE METER (BEAKER) 159 mg/dL 70-110 TESTE D AT [address] (test code = 1538) [place] [address] BASIC METABOLIC [id number] 05:19:00 Test Item Value Reference Range Comments SODIUM (BEAKER) (test 136 meq/L 136-145 code = 381) POTASSIUM (BEAKER) (test 3.6 meq/L 3.5-5.1 code = 379) CHLORIDE (BEAKER) (test 98 meq/L 98-107 code = 382) CO2 (BEAKER) (test code = 26 meq/L 22-29 355) BLOOD UREA NITROGEN 33 mg/dL 7-21 (BEAKER) (test code = 354) CREATININE (BEAKER) (test 6.38 mg/dL 0.57-1.25 code = 358) GLUCOSE RANDOM (BEAKER) 122 mg/dL 70-105 (test code = 652) CALCIUM (BEAKER) (test 8.4 mg/dL 8.4-10.2 code = 697) EGFR (BEAKER) (test code 11 mL/min/1.73 sq m EST IMATED GFR IS NOT = 1092) ACCURATE CREA TININE CLEARANCE IN PRE DICTING GLOMERULAR FILTR ATION RATE. ESTIMATED GFR IS NOT APPLICABLE F OR DIALYSIS PATIENT S. [id number] 05:18:00 Test Item Value Reference Range Comments MAGNESIUM (BEAKER) (test code = 627) 1.9 mg/dL 1.6-2.6 PROTHROMBIN [id number] 05:03:00 Test Item Value Reference Range Comments PROTIME (BEAKER) (test code = 759) 30.2 seconds 11.7-14.7 INR (BEAKER) (test code = 370) 2.9 <=5.9 RECOMMENDED COUMADIN/WARFARIN INR THERAPY RANGESSTANDARD DOSE: 2.0 - 3.0 Includes: PROPHYLAXIS forvenous thrombosis, systemic embolization; TREATMENT for venous thrombosis and/or pulmonary embolus.HIGH RISK: Target INR is 2.5-3.5 for patients with mechanical heart valves.CBC W/PLT COUNT & AUTO DIFFERENTIAL 2018-05-22 04:51:00 Test Item Value Reference Range Comments WHITE BLOOD CELL COUNT (BEAKER) (test code = 10.2 K/ L 3.5 -10.5 775) RED BLOOD CELL COUNT (BEAKER) (test code = 761) 3.27 M/ L 4.63-6.08 HEMOGLOBIN (BEAKER) (test code = 410) 9.7 GM/DL 13.7-17.5 HEMATOCRIT (BEAKER) (test code = 411) 30.5 % 40.1-51.0 MEAN CORPUSCULAR VOLUME (BEAKER) (test code = 93.3 fL 79 .0-92.2 753) MEAN CORPUSCULAR HEMOGLOBIN (BEAKER) (test code 29.7 pg 25.7-32.2 = 751) MEAN CORPUSCULAR HEMOGLOBIN CONC (BEAKER) (test 31.8 GM/DL 32.3-36.5 code = 752) RED CELL DISTRIBUTION WIDTH (BEAKER) (test code 15.8 % 11.6-14.4 = 412) PLATELET COUNT (BEAKER) (test code = 756) 181 K/CU MM 150-45 0 MEAN PLATELET VOLUME (BEAKER) (test code = 754) 9.4 fL 9.4-12.4 NUCLEATED RED BLOOD CELLS (BEAKER) (test code = 0 /100 WBC 0-0 413) NEUTROPHILS RELATIVE PERCENT (BEAKER) (test code 78 % = 429) LYMPHOCYTES RELATIVE PERCENT (BEAKER) (test code 8 % = 430) MONOCYTES RELATIVE PERCENT (BEAKER) (test code = 10 % 431) EOSINOPHILS RELATIVE PERCENT (BEAKER) (test code 2 % = 432) BASOPHILS RELATIVE PERCENT (BEAKER) (test code = 1 % 437) NEUTROPHILS ABSOLUTE COUNT (BEAKER) (test code = 7.90 K/ L 1.78-5.38 670) LYMPHOCYTES ABSOLUTE COUNT (BEAKER) (test code = 0.86 K/ L 1.32-3.57 414) MONOCYTES ABSOLUTE COUNT (BEAKER) (test code = 1.01 K/ L 0 .30-0.82 415) EOSINOPHILS ABSOLUTE COUNT (BEAKER) (test code = 0.17 K/ L 0.04-0.54 416) BASOPHILS ABSOLUTE COUNT (BEAKER) (test code = 0.07 K/ L 0 .01-0.08 417) IMMATURE GRANULOCYTES-RELATIVE PERCENT (BEAKER) 2 % 0-1 (test code = 2801) POCT-GLUCOSE [id number] 23:35:00 Test Item Value Reference Range Comments POC-GLUCOSE METER (BEAKER) 190 mg/dL 70-110 TESTE D AT [facility] [address] [facility] (test code = 1538) [place] [address] POCT-GLUCOSE [id number] 17:16:00 Test Item Value Reference Range Comments POC-GLUCOSE METER (BEAKER) 122 mg/dL 70-110 TESTE D AT [facility] [address] [facility] (test code = 1538) [place] [address] U/S, TESTICULAR (SCROTUM)2018-05-21 14:53:00Reason for exam:->testicular swellingFINAL REPORT Scrotal ultrasound, 05/21/2018 Clinical History: Testicular swelling Discussion: Sonographic evaluation of the scrotal contents is performed. In addition, color Doppler and spectral waveform analysis evaluations of the scrotal contents are obtained. The testes have homogeneous echotexture, without focal mass. The right testis [...] lymphocele is a consideration. Signed: Reagan Carr MDReport Verified Date/Time: 05/21/2018 14:53:00 Reading Location: [facility] P0J UltrasoundReading Room POCT- GLUCOSE [id number] 11:22:00 Test Item Value Reference Range Comments POC-GLUCOSE METER (BEAKER) 144 mg/dL 70-110 TESTE D AT [address] (test code = 1538) [facility] [address] POCT-GLUCOSE [id number] 07:05:00 Test Item Value Reference Range Comments POC-GLUCOSE METER (BEAKER) 171 mg/dL 70-110 TESTE D AT [address] (test code = 1538) [facility] [address] BASIC METABOLIC [id number] 06:19:00 Test Item Value Reference Range Comments SODIUM (BEAKER) (test 137 meq/L 136-145 code = 381) POTASSIUM (BEAKER) (test 3.3 meq/L 3.5-5.1 code = 379) CHLORIDE (BEAKER) (test 98 meq/L 98-107 code = 382) CO2 (BEAKER) (test code = 31 meq/L 22-29 355) BLOOD UREA NITROGEN 22 mg/dL 7-21 (BEAKER) (test code = 354) CREATININE (BEAKER) (test 4.82 mg/dL 0.57-1.25 code = 358) GLUCOSE RANDOM (BEAKER) 161 mg/dL 70-105 (test code = 652) CALCIUM (BEAKER) (test 8.5 mg/dL 8.4-10.2 code = 697) EGFR (BEAKER) (test code 15 mL/min/1.73 sq m EST IMATED GFR IS NOT = 1092) ACCURATE CREA TININE CLEARANCE IN PRE DICTING GLOMERULAR FILTR ATION RATE. ESTIMATED GFR IS NOT APPLICABLE F OR DIALYSIS PATIENT S. [id number] 06:04:00 Test Item Value Reference Range Comments MAGNESIUM (BEAKER) (test code = 627) 1.9 mg/dL 1.6-2.6 PROTHROMBIN [id number] 05:31:00 Test Item Value Reference Range Comments PROTIME (BEAKER) (test code = 759) 29.0 seconds 11.7-14.7 INR (BEAKER) (test code = 370) 2.7 <=5.9 RECOMMENDED COUMADIN/WARFARIN INR THERAPY RANGESSTANDARD DOSE: 2.0 - 3.0 Includes: PROPHYLAXIS forvenous thrombosis, systemic embolization; TREATMENT for venous thrombosis and/or pulmonary embolus.HIGH RISK: Target INR is 2.5-3.5 for patients with mechanical heart valves.CBC W/PLT COUNT & AUTO DIFFERENTIAL 2018-05-21 05:27:00 Test Item Value Reference Range Comments WHITE BLOOD CELL COUNT (BEAKER) (test code = 9.5 K/ L 3.5 -10.5 775) RED BLOOD CELL COUNT (BEAKER) (test code = 761) 3.38 M/ L 4.63-6.08 HEMOGLOBIN (BEAKER) (test code = 410) 10.0 GM/DL 13.7-17.5 HEMATOCRIT (BEAKER) (test code = 411) 31.5 % 40.1-51.0 MEAN CORPUSCULAR VOLUME (BEAKER) (test code = 93.2 fL 79 .0-92.2 753) MEAN CORPUSCULAR HEMOGLOBIN (BEAKER) (test code 29.6 pg 25.7-32.2 = 751) MEAN CORPUSCULAR HEMOGLOBIN CONC (BEAKER) (test 31.7 GM/DL 32.3-36.5 code = 752) RED CELL DISTRIBUTION WIDTH (BEAKER) (test code 15.7 % 11.6-14.4 = 412) PLATELET COUNT (BEAKER) (test code = 756) 178 K/CU MM 150-45 0 MEAN PLATELET VOLUME (BEAKER) (test code = 754) 8.7 fL 9.4-12.4 NUCLEATED RED BLOOD CELLS (BEAKER) (test code = 0 /100 WBC 0-0 413) NEUTROPHILS RELATIVE PERCENT (BEAKER) (test code 77 % = 429) LYMPHOCYTES RELATIVE PERCENT (BEAKER) (test code 9 % = 430) MONOCYTES RELATIVE PERCENT (BEAKER) (test code = 10 % 431) EOSINOPHILS RELATIVE PERCENT (BEAKER) (test code 2 % = 432) BASOPHILS RELATIVE PERCENT (BEAKER) (test code = 1 % 437) NEUTROPHILS ABSOLUTE COUNT (BEAKER) (test code = 7.36 K/ L 1.78-5.38 670) LYMPHOCYTES ABSOLUTE COUNT (BEAKER) (test code = 0.88 K/ L 1.32-3.57 414) MONOCYTES ABSOLUTE COUNT (BEAKER) (test code = 0.95 K/ L 0 .30-0.82 415) EOSINOPHILS ABSOLUTE COUNT (BEAKER) (test code = 0.16 K/ L 0.04-0.54 416) BASOPHILS ABSOLUTE COUNT (BEAKER) (test code = 0.05 K/ L 0 .01-0.08 417) IMMATURE GRANULOCYTES-RELATIVE PERCENT (BEAKER) 1 % 0-1 (test code = 2801) POCT-GLUCOSE [id number] 21:29:00 Test Item Value Reference Range Comments POC-GLUCOSE METER (BEAKER) 156 mg/dL 70-110 TESTE D AT [address] (test code = 1538) [place] [address] POCT-GLUCOSE [id number] 18:14:00 Test Item Value Reference Range Comments POC-GLUCOSE METER (BEAKER) 93 mg/dL 70-110 TESTE D AT [address] (test code = 1538) [place] [id number] PROTHROMBIN [id number] 13:26:00 Test Item Value Reference Range Comments PROTIME (BEAKER) (test code = 759) 42.0 seconds 11.7-14.7 INR (BEAKER) (test code = 370) 4.4 <=5.9 RECOMMENDED COUMADIN/WARFARIN INR THERAPY RANGESSTANDARD DOSE: 2.0 - 3.0 Includes: PROPHYLAXIS forvenous thrombosis, systemic embolization; TREATMENT for venous thrombosis and/or pulmonary embolus.HIGH RISK: Target INR is 2.5-3.5 for patients with mechanical heart valves.LACTIC ACID, VENOUS, WHOLE [id number] 13:18:00 Test Item Value Reference Range Comments LACTATE BLOOD VENOUS (2) (BEAKER) (test code = 0.8 mmol/L 0 .5-2.2 2872) Effective 01/04/2016: Units/Reference Range ChangeNew: 0.5-2.2 mmol/L Previous: 5-20 mg/dLPOCT-GLUCOSE [id number] 12:04:00 Test Item Value Reference Range Comments POC-GLUCOSE METER (JARROD) 111 mg/dL 70-110 TESTE D AT [address] (test code = 1538) [place] [id number] CD4 T CELL [id number] 12:04:00 Test Item Value Reference Range Comments CD4/CD8 RATIO FC (BEAKER) (test code = 2127) 0.76 0.7 0-3.23 HEPATITIS B SURFACE [id number] 11:32:00 Test Item Value Reference Range Comments HEPATITIS B SURFACE ANTIGEN (2) (BEAKER) (test Nonreactive N onreactive code = 2585) VANCOMYCIN LEVEL, [id number] 11:10:00 Test Item Value Reference Range Comments VANCOMYCIN RANDOM (BEZOILA) (test code = 523) 20.7 ug/mL Reference Range: No NormalsBASIC METABOLIC [id number] 09:19:00 Test Item Value Reference Range Comments SODIUM (BEAKER) (test 129 meq/L 136-145 code = 381) POTASSIUM (BEAKER) (test 3.4 meq/L 3.5-5.1 code = 379) CHLORIDE (BEAKER) (test 93 meq/L 98-107 code = 382) CO2 (BEAKER) (test code = 26 meq/L 22-29 355) BLOOD UREA NITROGEN 46 mg/dL 7-21 (BEAKER) (test code = 354) CREATININE (BEAKER) (test 7.70 mg/dL 0.57-1.25 code = 358) GLUCOSE RANDOM (BEAKER) 129 mg/dL 70-105 (test code = 652) CALCIUM (BEAKER) (test 8.5 mg/dL 8.4-10.2 code = 697) EGFR (BEAKER) (test code 9 mL/min/1.73 sq m OK MATED GFR IS NOT = 1092) ACCURATE CREA TININE CLEARANCE IN PRE DICTING GLOMERULAR FILTR ATION RATE. ESTIMATED GFR IS NOT APPLICABLE F OR DIALYSIS PATIENT S. [id number] 09:16:00 Test Item Value Reference Range Comments MAGNESIUM (BEAKER) (test code = 627) 2.1 mg/dL 1.6-2.6 RAD, CHEST, 1 VIEW, NON [id number] 07:56:00Reason for exam:->pleural effusion seen on outside hospital imagingShould this be performed at the bedside?->YesFINAL REPORT Chest one view compared to February 23 Discussion: Small effusions are similar. Replaced cardiac valve and atrial appendage clip noted. No pneumothorax. Unchanged cardiac pulmonary appearance. Signed: Rhea Colindres MDReport Verified Date/Time: 05/20/2018 07:56:50 Reading Location: [facility] Radiology Reading Room POCT-GLUCOSE [id number] 07:32:00 Test Item Value Reference Range Comments POC-GLUCOSE METER (BEAKER) 105 mg/dL 70-110 TESTE D AT [facility] [id number] (test code = 1538) [facility] [phone] CBC W/PLT COUNT & AUTO [id number] 07:01:00 Test Item Value Reference Range Comments WHITE BLOOD CELL COUNT (BEAKER) (test code = 9.1 K/ L 3.5 -10.5 775) RED BLOOD CELL COUNT (BEAKER) (test code = 761) 3.34 M/ L 4.63-6.08 HEMOGLOBIN (BEAKER) (test code = 410) 9.8 GM/DL 13.7-17.5 HEMATOCRIT (BEAKER) (test code = 411) 30.9 % 40.1-51.0 MEAN CORPUSCULAR VOLUME (BEAKER) (test code = 92.5 fL 79 .0-92.2 753) MEAN CORPUSCULAR HEMOGLOBIN (BEAKER) (test code 29.3 pg 25.7-32.2 = 751) MEAN CORPUSCULAR HEMOGLOBIN CONC (BEAKER) (test 31.7 GM/DL 32.3-36.5 code = 752) RED CELL DISTRIBUTION WIDTH (BEAKER) (test code 15.8 % 11.6-14.4 = 412) PLATELET COUNT (BEAKER) (test code = 756) 173 K/CU MM 150-45 0 MEAN PLATELET VOLUME (BEAKER) (test code = 754) 9.2 fL 9.4-12.4 NUCLEATED RED BLOOD CELLS (BEAKER) (test code = 0 /100 WBC 0-0 413) NEUTROPHILS RELATIVE PERCENT (BEAKER) (test code 78 % = 429) LYMPHOCYTES RELATIVE PERCENT (BEAKER) (test code 9 % = 430) MONOCYTES RELATIVE PERCENT (BEAKER) (test code = 11 % 431) EOSINOPHILS RELATIVE PERCENT (BEAKER) (test code 1 % = 432) BASOPHILS RELATIVE PERCENT (BEAKER) (test code = 0 % 437) NEUTROPHILS ABSOLUTE COUNT (BEAKER) (test code = 7.12 K/ L 1.78-5.38 670) LYMPHOCYTES ABSOLUTE COUNT (BEAKER) (test code = 0.84 K/ L 1.32-3.57 414) MONOCYTES ABSOLUTE COUNT (BEAKER) (test code = 0.98 K/ L 0 .30-0.82 415) EOSINOPHILS ABSOLUTE COUNT (BEAKER) (test code = 0.07 K/ L 0.04-0.54 416) BASOPHILS ABSOLUTE COUNT (BEAKER) (test code = 0.03 K/ L 0 .01-0.08 417) IMMATURE GRANULOCYTES-RELATIVE PERCENT (BEAKER) 1 % 0-1 (test code = 2801) VANCOMYCIN LEVEL, [id number] 22:39:00 Test Item Value Reference Range Comments VANCOMYCIN RANDOM (BEAKER) (test code = 523) 22.0 ug/mL Reference Range: No NormalsCOMPREHENSIVE METABOLIC [id number] 22:39:00 Test Item Value Reference Range Comments TOTAL PROTEIN (BEAKER) 7.3 gm/dL 6.0-8.3 (test code = 770) ALBUMIN (BEAKER) (test 3.0 g/dL 3.5-5.0 code = 1145) ALKALINE PHOSPHATASE 65 U/L 40-150 (BEAKER) (test code = 346) BILIRUBIN TOTAL (BEAKER) 0.9 mg/dL 0.2-1.2 (test code = 377) SODIUM (BEAKER) (test code 130 meq/L 136-145 = 381) POTASSIUM (BEAKER) (test 3.5 meq/L 3.5-5.1 code = 379) CHLORIDE (BEAKER) (test 94 meq/L 98-107 code = 382) CO2 (BEAKER) (test code = 24 meq/L 22-29 355) BLOOD UREA NITROGEN 44 mg/dL 7-21 (BEAKER) (test code = 354) CREATININE (BEAKER) (test 7.35 mg/dL 0.57-1.25 code = 358) GLUCOSE RANDOM (BEAKER) 144 mg/dL 70-105 (test code = 652) CALCIUM (BEAKER) (test 8.6 mg/dL 8.4-10.2 code = 697) AST (SGOT) (BEAKER) (test 30 U/L 5-34 code = 353) ALT (SGPT) (BEAKER) (test 21 U/L 6-55 code = 347) EGFR (BEAKER) (test code = 9 mL/min/1.73 sq m ES TIMATED GFR IS NOT 1092) ACCURATE CREA TININE CLEARANCE IN PRE DICTING GLOMERULAR FILTR ATION RATE. ESTIMATED GFR IS NOT APPLICABLE F OR DIALYSIS PATIENT S. [id number] 22:38:00 Test Item Value Reference Range Comments PHOSPHORUS (BEAKER) (test code = 604) 4.5 mg/dL 2.3-4.7 [id number] 22:38:00 Test Item Value Reference Range Comments MAGNESIUM (BEAKER) (test code = 627) 2.0 mg/dL 1.6-2.6 [id number] 22:29:00 Test Item Value Reference Range Comments PARTIAL THROMBOPLASTIN TIME (BEAKER) (test code 45.0 seconds 22.5-36.0 = 760) PROTHROMBIN [id number] 22:28:00 Test Item Value Reference Range Comments PROTIME (BEAKER) (test code = 759) 48.1 seconds 11.7-14.7 INR (BEAKER) (test code = 370) 5.2 <=5.9 RECOMMENDED COUMADIN/WARFARIN INR THERAPY RANGESSTANDARD DOSE: 2.0 - 3.0 Includes: PROPHYLAXIS forvenous thrombosis, systemic embolization; TREATMENT for venous thrombosis and/or pulmonary embolus.HIGH RISK: Target INR is 2.5-3.5 for patients with mechanical heart valves.POCT-GLUCOSE [id number] 21:38:00 Test Item Value Reference Range Comments POC-GLUCOSE METER (BEAKER) 105 mg/dL 70-110 TESTE D AT [facility] [address] [facility] (test code = 1538) [facility] 77 [address] XR Ankle Complete 3+ Views [id number] 22:30:07Patient: CALEB LUGO Date/Time05/12/2018 22:24 CDTReason for [...] Signature): 05/12/2018 10:30 pmXR Chest 1 View [id number] 09:48:17Patient: CALEB LUGO Date/Time05/12/2018 09:30 CDTReason for ExamChest painReportCHEST 1 VIEWCLINICAL INFORMATION: Chest painCOMPARISON: November 19, 2017FINDINGS:The cardiac silhouette is moderately enlarged. A cardiac valve replacement and m edian sternotomy wires are now seen. There is prominence of the central pulmonary vasculature and interstitial markings. Right basilar alveolar opacities are also present. Small layering pleural effusions are noted, right greater than left.IMPRESSION:1. Enlarged cardiac silhouette with interstitial pulmonary edema.2. Small layering pleural effusions, right greater than left.LOCATION: R16 Final Dictated by: MD David Adam FDictated DT/TM: 05/12/2018 9:45 amSigned by: MD David Adam FSigned (Electronic Signature): 05/12/2018 9:48 amBASIC METABOLIC [id number] 11:15:00 Test Item Value Reference Range Comments SODIUM (BEAKER) (test 139 meq/L 136-145 code = 381) POTASSIUM (BEAKER) (test 3.5 meq/L 3.5-5.1 code = 379) CHLORIDE (BEAKER) (test 96 meq/L 98-107 code = 382) CO2 (BEAKER) (test code = 29 meq/L 22-29 355) BLOOD UREA NITROGEN 31 mg/dL 7-21 (BEAKER) (test code = 354) CREATININE (BEAKER) (test 6.31 mg/dL 0.57-1.25 code = 358) GLUCOSE RANDOM (BEAKER) 147 mg/dL 70-105 (test code = 652) CALCIUM (BEAKER) (test 9.7 mg/dL 8.4-10.2 code = 697) EGFR (BEAKER) (test code 11 mL/min/1.73 sq m EST IMATED GFR IS NOT = 1092) ACCURATE CREA TININE CLEARANCE IN PRE DICTING GLOMERULAR FILTR ATION RATE. ESTIMATED GFR IS NOT APPLICABLE F OR DIALYSIS PATIENT S. B-TYPE NATRIURETIC FACTOR (BNP)2018-03-19 11:13:00 Test Item Value Reference Range Comments B-TYPE NATRIURETIC PEPTIDE (BEAKER) (test code = 3030 pg/mL 0-100 700) BASIC METABOLIC [id number] 02:55:00 Test Item Value Reference Range Comments SODIUM (BEAKER) (test 139 meq/L 136-145 code = 381) POTASSIUM (BEAKER) (test 4.1 meq/L 3.5-5.1 code = 379) CHLORIDE (BEAKER) (test 97 meq/L 98-107 code = 382) CO2 (BEAKER) (test code = 32 meq/L 22-29 355) BLOOD UREA NITROGEN 34 mg/dL 7-21 (BEAKER) (test code = 354) CREATININE (BEAKER) (test 5.68 mg/dL 0.57-1.25 code = 358) GLUCOSE RANDOM (BEAKER) 109 mg/dL 70-105 (test code = 652) CALCIUM (BEAKER) (test 9.3 mg/dL 8.4-10.2 code = 697) EGFR (BEAKER) (test code 12 mL/min/1.73 sq m EST IMATED GFR IS NOT = 1092) ACCURATE CREA TININE CLEARANCE IN PRE DICTING GLOMERULAR FILTR ATION RATE. ESTIMATED GFR IS NOT APPLICABLE F OR DIALYSIS PATIENT S. B-TYPE NATRIURETIC FACTOR (BNP)2018-02-24 02:31:00 Test Item Value Reference Range Comments B-TYPE NATRIURETIC PEPTIDE (BEAKER) (test code = 3676 pg/mL 0-100 700) TROPONIN [id number] 02:30:00 Test Item Value Reference Range Comments TROPONIN I (BEAKER) (test code = 397) 0.14 ng/mL 0.00-0.03 Troponin I (TnI) levels [...] failure, acidosis, acute neurological disease, and persistent tachyarrhythmia.[id number] 02:21:00 Test Item Value Reference Range Comments MAGNESIUM (BEAKER) (test code = 627) 1.8 mg/dL 1.6-2.6 CBC W/PLT COUNT & AUTO [id number] 00:24:00 Test Item Value Reference Range Comments WHITE BLOOD CELL COUNT (BEAKER) (test code = 775) 7.8 K/ L 3.5-10.5 RED BLOOD CELL COUNT (BEAKER) (test code = 761) 3.03 M/ L 4.63-6.08 HEMOGLOBIN (BEAKER) (test code = 410) 9.2 GM/DL 13.7-17.5 HEMATOCRIT (BEAKER) (test code = 411) 30.1 % 40.1-51.0 MEAN CORPUSCULAR VOLUME (BEAKER) (test code = 99.3 fL 79 .0-92.2 753) MEAN CORPUSCULAR HEMOGLOBIN (BEAKER) (test code = 30.4 pg 25.7-32.2 751) MEAN CORPUSCULAR HEMOGLOBIN CONC (BEAKER) (test 30.6 GM/DL 32.3-36.5 code = 752) RED CELL DISTRIBUTION WIDTH (BEAKER) (test code = 18.5 % 11.6-14.4 412) PLATELET COUNT (BEAKER) (test code = 756) 83 K/CU MM 150-45 0 MEAN PLATELET VOLUME (BEAKER) (test code = 754) 10.2 fL 9.4-12.4 NUCLEATED RED BLOOD CELLS (BEAKER) (test code = 0 /100 WBC 0-0 413) NEUTROPHILS RELATIVE PERCENT (BEAKER) (test code 63 % = 429) LYMPHOCYTES RELATIVE PERCENT (BEAKER) (test code 21 % = 430) MONOCYTES RELATIVE PERCENT (BEAKER) (test code = 13 % 431) EOSINOPHILS RELATIVE PERCENT (BEAKER) (test code 1 % = 432) BASOPHILS RELATIVE PERCENT (BEAKER) (test code = 1 % 437) NEUTROPHILS ABSOLUTE COUNT (BEAKER) (test code = 4.95 K/ L 1.78-5.38 670) LYMPHOCYTES ABSOLUTE COUNT (BEAKER) (test code = 1.61 K/ L 1.32-3.57 414) MONOCYTES ABSOLUTE COUNT (BEAKER) (test code = 1.04 K/ L 0 .30-0.82 415) EOSINOPHILS ABSOLUTE COUNT (BEAKER) (test code = 0.10 K/ L 0.04-0.54 416) BASOPHILS ABSOLUTE COUNT (BEAKER) (test code = 0.06 K/ L 0 .01-0.08 417) IMMATURE GRANULOCYTES-RELATIVE PERCENT (BEAKER) 1 % 0-1 (test code = 2801) [id number] 00:01:00 Test Item Value Reference Range Comments PROTIME (BEAKER) (test code = 759) 14.4 seconds 11.7-14.7 INR (BEAKER) (test code = 370) 1.1 <=5.9 PARTIAL THROMBOPLASTIN TIME (BEAKER) (test code 28.5 seconds 22.5-36.0 = 760) RECOMMENDED COUMADIN/WARFARIN INR THERAPY RANGESSTANDARD DOSE: 2.0 - 3.0 Includes: PROPHYLAXIS forvenous thrombosis, systemic embolization; TREATMENT for venous thrombosis and/or pulmonary embolus.HIGH RISK: Target INR is 2.5-3.5 for patients with mechanical heart valves.RAD, CHEST, 1 VIEW, NON [id number] 23:39:00Reason for exam:->chest painShould this be performed at the bedside?->YesFINAL REPORT EXAMINATION: AP PORTABLE CHEST RADIOGRAPH CLINICAL INDICATION: Chest pain IMPRESSION: Compared with 01/29/2018. A midline sternotomy and prosthetic cardiac valve [...] Wan Verified Date/Time: 02/23/2018 23:39:58 Reading Location: [address] Reading Room POCT-GLUCOSE [id number] 19:47:00 Test Item Value Reference Range Comments POC-GLUCOSE METER (BEAKER) 94 mg/dL 70-110 TESTE D AT [address] (test code = 1538) [place] [id number] POCT-GLUCOSE [id number] 17:07:00 Test Item Value Reference Range Comments POC-GLUCOSE METER (BEAKER) 176 mg/dL 70-110 TESTE D AT [address] (test code = 1538) [place] [address] POCT-GLUCOSE [id number] 12:31:00 Test Item Value Reference Range Comments POC-GLUCOSE METER (BEAKER) 84 mg/dL 70-110 TESTE D AT [facility] [address] [facility] (test code = 1538) [place] [address] [id number] 10:40:00 Test Item Value Reference Range Comments PARTIAL THROMBOPLASTIN TIME (BEAKER) (test code 88.5 seconds 22.5-36.0 = 760) OCCULT BLOOD, [id number] 09:36:00 Test Item Value Reference Range Comments FECAL OCCULT BLOOD (BEAKER) (test code = 618) Negative Ne gative POCT-GLUCOSE [id number] 08:51:00 Test Item Value Reference Range Comments POC-GLUCOSE METER (BEAKER) 223 mg/dL 70-110 TESTE D AT [address] (test code = 1538) [place] [address] [id number] 04:14:00 Test Item Value Reference Range Comments PARTIAL THROMBOPLASTIN TIME (BEAKER) (test code 80.3 seconds 22.5-36.0 = 760) While on warfarin.PROTHROMBIN TIME/[id number] 04:13:00 Test Item Value Reference Range Comments PROTIME (BEAKER) (test code = 759) 23.8 seconds 11.7-14.7 INR (BEAKER) (test code = 370) 2.1 <=5.9 RECOMMENDED COUMADIN/WARFARIN INR THERAPY RANGESSTANDARD DOSE: 2.0 - 3.0 Includes: PROPHYLAXIS forvenous thrombosis, systemic embolization; TREATMENT for venous thrombosis and/or pulmonary embolus.HIGH RISK: Target INR is 2.5-3.5 for patients with mechanical heart valves.While on warfarin.POCT-GLUCOSE METER 2018-02-02 21:56:00 Test Item Value Reference Range Comments POC-GLUCOSE METER (BEAKER) 206 mg/dL 70-110 TESTE D AT [place] [id number] [facility] (test code = 1538) [place] [address] [id number] 19:50:00 Test Item Value Reference Range Comments PARTIAL THROMBOPLASTIN TIME (BEAKER) (test code 59.7 seconds 22.5-36.0 = 760) POCT-GLUCOSE [id number] 17:00:00 Test Item Value Reference Range Comments POC-GLUCOSE METER (BEAKER) 183 mg/dL 70-110 TESTE D AT [address] (test code = 1538) [place] [address] [id number] 12:45:00 Test Item Value Reference Range Comments PARTIAL THROMBOPLASTIN TIME (BEAKER) (test code 89.5 seconds 22.5-36.0 = 760) CBC W/PLT COUNT & AUTO [id number] 12:04:00 Test Item Value Reference Range Comments WHITE BLOOD CELL COUNT (BEAKER) (test code = 775) 4.8 K/ L 3.5-10.5 RED BLOOD CELL COUNT (BEAKER) (test code = 761) 2.46 M/ L 4.63-6.08 HEMOGLOBIN (BEAKER) (test code = 410) 7.5 GM/DL 13.7-17.5 HEMATOCRIT (BEAKER) (test code = 411) 24.2 % 40.1-51.0 MEAN CORPUSCULAR VOLUME (BEAKER) (test code = 98.4 fL 79 .0-92.2 753) MEAN CORPUSCULAR HEMOGLOBIN (BEAKER) (test code = 30.5 pg 25.7-32.2 751) MEAN CORPUSCULAR HEMOGLOBIN CONC (BEAKER) (test 31.0 GM/DL 32.3-36.5 code = 752) RED CELL DISTRIBUTION WIDTH (BEAKER) (test code = 18.0 % 11.6-14.4 412) PLATELET COUNT (BEAKER) (test code = 756) 90 K/CU MM 150-45 0 MEAN PLATELET VOLUME (BEAKER) (test code = 754) 9.3 fL 9.4-12.4 NUCLEATED RED BLOOD CELLS (BEAKER) (test code = 0 /100 WBC 0-0 413) POCT-GLUCOSE [id number] 11:54:00 Test Item Value Reference Range Comments POC-GLUCOSE METER (BEAKER) 124 mg/dL 70-110 TESTE D AT [address] (test code = 1538) [place] [address] POCT-GLUCOSE [id number] 07:48:00 Test Item Value Reference Range Comments POC-GLUCOSE METER (BEAKER) 178 mg/dL 70-110 TESTE D AT [address] (test code = 1538) [place] [address] BASIC METABOLIC [id number] 05:15:00 Test Item Value Reference Range Comments SODIUM (BEAKER) (test 133 meq/L 136-145 code = 381) POTASSIUM (BEAKER) (test 4.8 meq/L 3.5-5.1 code = 379) CHLORIDE (BEAKER) (test 97 meq/L 98-107 code = 382) CO2 (BEAKER) (test code = 27 meq/L 22-29 355) BLOOD UREA NITROGEN 26 mg/dL 7-21 (BEAKER) (test code = 354) CREATININE (BEAKER) (test 5.28 mg/dL 0.57-1.25 code = 358) GLUCOSE RANDOM (BEAKER) 131 mg/dL 70-105 (test code = 652) CALCIUM (BEAKER) (test 8.5 mg/dL 8.4-10.2 code = 697) EGFR (BEAKER) (test code 14 mL/min/1.73 sq m EST IMATED GFR IS NOT = 1092) ACCURATE CREA TININE CLEARANCE IN PRE DICTING GLOMERULAR FILTR ATION RATE. ESTIMATED GFR IS NOT APPLICABLE F OR DIALYSIS PATIENT S. [id number] 04:51:00 Test Item Value Reference Range Comments MAGNESIUM (BEAKER) (test code = 627) 1.8 mg/dL 1.6-2.6 [id number] 04:36:00 Test Item Value Reference Range Comments PARTIAL THROMBOPLASTIN TIME (BEAKER) (test code 91.9 seconds 22.5-36.0 = 760) While on warfarin.PROTHROMBIN [id number] 04:34:00 Test Item Value Reference Range Comments PROTIME (BEAKER) (test code = 759) 21.6 seconds 11.7-14.7 INR (BEAKER) (test code = 370) 1.9 <=5.9 RECOMMENDED COUMADIN/WARFARIN INR THERAPY RANGESSTANDARD DOSE: 2.0 - 3.0 Includes: PROPHYLAXIS forvenous thrombosis, systemic embolization; TREATMENT for venous thrombosis and/or pulmonary embolus.HIGH RISK: Target INR is 2.5-3.5 for patients with mechanical heart valves.While on warfarin.POCT-GLUCOSE METER 2018-02-01 21:46:00 Test Item Value Reference Range Comments POC-GLUCOSE METER (BEAKER) 126 mg/dL 70-110 TESTE D AT [address] (test code = 1538) [place] [address] [id number] 21:23:00 Test Item Value Reference Range Comments PARTIAL THROMBOPLASTIN TIME (BEAKER) (test code 84.1 seconds 22.5-36.0 = 760) POCT-GLUCOSE [id number] 16:57:00 Test Item Value Reference Range Comments POC-GLUCOSE METER (BEAKER) 156 mg/dL 70-110 TESTE D AT [address] (test code = 1538) [place] [address] [id number] 14:11:00 Test Item Value Reference Range Comments PARTIAL THROMBOPLASTIN TIME (BEAKER) (test code 96.5 seconds 22.5-36.0 = 760) POCT-GLUCOSE [id number] 08:24:00 Test Item Value Reference Range Comments POC-GLUCOSE METER (BEAKER) 169 mg/dL 70-110 TESTE D AT [address] (test code = 1538) [place] [address] POCT-GLUCOSE [id number] 06:49:00 Test Item Value Reference Range Comments POC-GLUCOSE METER (BEAKER) 172 mg/dL 70-110 TESTE D AT [address] (test code = 1538) [place] [address] [id number] 04:59:00 Test Item Value Reference Range Comments PARTIAL THROMBOPLASTIN TIME (BEAKER) (test code 64.7 seconds 22.5-36.0 = 760) While on warfarin.PROTHROMBIN TIME/[id number] 04:57:00 Test Item Value Reference Range Comments PROTIME (BEAKER) (test code = 759) 17.5 seconds 11.7-14.7 INR (BEAKER) (test code = 370) 1.4 <=5.9 RECOMMENDED COUMADIN/WARFARIN INR THERAPY RANGESSTANDARD DOSE: 2.0 - 3.0 Includes: PROPHYLAXIS forvenous thrombosis, systemic embolization; TREATMENT for venous thrombosis and/or pulmonary embolus.HIGH RISK: Target INR is 2.5-3.5 for patients with mechanical heart valves.While on warfarin.[id number] 21:55:00 Test Item Value Reference Range Comments PARTIAL THROMBOPLASTIN TIME (BEAKER) (test code 68.8 seconds 22.5-36.0 = 760) [id number] 13:54:00 Test Item Value Reference Range Comments PARTIAL THROMBOPLASTIN TIME (BEAKER) (test code 51.7 seconds 22.5-36.0 = 760) POCT-GLUCOSE [id number] 11:56:00 Test Item Value Reference Range Comments POC-GLUCOSE METER (BEAKER) 101 mg/dL 70-110 TESTE D AT [facility] [address] [facility] (test code = 1538) [place] [address] POCT-GLUCOSE [id number] 07:58:00 Test Item Value Reference Range Comments POC-GLUCOSE METER (BEAKER) 111 mg/dL 70-110 TESTE D AT [address] (test code = 1538) [place] [address] BASIC METABOLIC [id number] 05:35:00 Test Item Value Reference Range Comments SODIUM (BEAKER) (test 132 meq/L 136-145 code = 381) POTASSIUM (BEAKER) (test 3.9 meq/L 3.5-5.1 code = 379) CHLORIDE (BEAKER) (test 95 meq/L 98-107 code = 382) CO2 (BEAKER) (test code = 26 meq/L 22-29 355) BLOOD UREA NITROGEN 29 mg/dL 7-21 (BEAKER) (test code = 354) CREATININE (BEAKER) (test 5.57 mg/dL 0.57-1.25 code = 358) GLUCOSE RANDOM (BEAKER) 148 mg/dL 70-105 (test code = 652) CALCIUM (BEAKER) (test 8.2 mg/dL 8.4-10.2 code = 697) EGFR (BEAKER) (test code 13 mL/min/1.73 sq m EST IMATED GFR IS NOT = 1092) ACCURATE CREA TININE CLEARANCE IN PRE DICTING GLOMERULAR FILTR ATION RATE. ESTIMATED GFR IS NOT APPLICABLE F OR DIALYSIS PATIENT S. [id number] 05:34:00 Test Item Value Reference Range Comments PHOSPHORUS (BEAKER) (test code = 604) 4.2 mg/dL 2.3-4.7 [id number] 05:34:00 Test Item Value Reference Range Comments MAGNESIUM (BEAKER) (test code = 627) 1.7 mg/dL 1.6-2.6 PROTHROMBIN [id number] 05:24:00 Test Item Value Reference Range Comments PROTIME (BEAKER) (test code = 759) 18.8 seconds 11.7-14.7 INR (BEAKER) (test code = 370) 1.6 <=5.9 RECOMMENDED COUMADIN/WARFARIN INR THERAPY RANGESSTANDARD DOSE: 2.0 - 3.0 Includes: PROPHYLAXIS forvenous thrombosis, systemic embolization; TREATMENT for venous thrombosis and/or pulmonary embolus.HIGH RISK: Target INR is 2.5-3.5 for patients with mechanical heart valves.[id number] 05:05:00 Test Item Value Reference Range Comments PARTIAL THROMBOPLASTIN TIME (BEAKER) (test code 96.6 seconds 22.5-36.0 = 760) CBC W/PLT COUNT & AUTO [id number] 04:54:00 Test Item Value Reference Range Comments WHITE BLOOD CELL COUNT (BEAKER) (test code = 775) 5.5 K/ L 3.5-10.5 RED BLOOD CELL COUNT (BEAKER) (test code = 761) 2.40 M/ L 4.63-6.08 HEMOGLOBIN (BEAKER) (test code = 410) 7.3 GM/DL 13.7-17.5 HEMATOCRIT (BEAKER) (test code = 411) 23.3 % 40.1-51.0 MEAN CORPUSCULAR VOLUME (BEAKER) (test code = 97.1 fL 79 .0-92.2 753) MEAN CORPUSCULAR HEMOGLOBIN (BEAKER) (test code = 30.4 pg 25.7-32.2 751) MEAN CORPUSCULAR HEMOGLOBIN CONC (BEAKER) (test 31.3 GM/DL 32.3-36.5 code = 752) RED CELL DISTRIBUTION WIDTH (BEAKER) (test code = 18.9 % 11.6-14.4 412) PLATELET COUNT (BEAKER) (test code = 756) 87 K/CU MM 150-45 0 MEAN PLATELET VOLUME (BEAKER) (test code = 754) 9.5 fL 9.4-12.4 NUCLEATED RED BLOOD CELLS (BEAKER) (test code = 0 /100 WBC 0-0 413) NEUTROPHILS RELATIVE PERCENT (BEAKER) (test code 69 % = 429) LYMPHOCYTES RELATIVE PERCENT (BEAKER) (test code 18 % = 430) MONOCYTES RELATIVE PERCENT (BEAKER) (test code = 11 % 431) EOSINOPHILS RELATIVE PERCENT (BEAKER) (test code 1 % = 432) BASOPHILS RELATIVE PERCENT (BEAKER) (test code = 0 % 437) NEUTROPHILS ABSOLUTE COUNT (BEAKER) (test code = 3.77 K/ L 1.78-5.38 670) LYMPHOCYTES ABSOLUTE COUNT (BEAKER) (test code = 0.97 K/ L 1.32-3.57 414) MONOCYTES ABSOLUTE COUNT (BEAKER) (test code = 0.62 K/ L 0 .30-0.82 415) EOSINOPHILS ABSOLUTE COUNT (BEAKER) (test code = 0.07 K/ L 0.04-0.54 416) BASOPHILS ABSOLUTE COUNT (BEAKER) (test code = 0.02 K/ L 0 .01-0.08 417) IMMATURE GRANULOCYTES-RELATIVE PERCENT (BEAKER) 1 % 0-1 (test code = 2801) OCCULT BLOOD, [id number] 22:44:00 Test Item Value Reference Range Comments FECAL OCCULT BLOOD (BEAKER) (test code = 618) Positive Ne gative [id number] 21:14:00 Test Item Value Reference Range Comments PARTIAL THROMBOPLASTIN TIME (BEAKER) (test code 69.1 seconds 22.5-36.0 = 760) POCT-GLUCOSE [id number] 20:49:00 Test Item Value Reference Range Comments POC-GLUCOSE METER (BEAKER) 160 mg/dL 70-110 TESTE D AT [address] (test code = 1538) [place] [address] POCT-GLUCOSE [id number] 17:59:00 Test Item Value Reference Range Comments POC-GLUCOSE METER (BEAKER) 128 mg/dL 70-110 TESTE D AT [address] (test code = 1538) [place] [address] POCT-GLUCOSE [id number] 13:31:00 Test Item Value Reference Range Comments POC-GLUCOSE METER (BEAKER) 70 mg/dL 70-110 TESTE D AT [address] (test code = 1538) [place] [address] [id number] 13:16:00 Test Item Value Reference Range Comments PARTIAL THROMBOPLASTIN TIME (BEAKER) (test code 78.3 seconds 22.5-36.0 = 760) POCT-GLUCOSE [id number] 12:47:00 Test Item Value Reference Range Comments POC-GLUCOSE METER (BEAKER) 49 mg/dL 70-110 TESTE D AT [facility] [address] [facility] (test code = 1538) [place] [address] POCT-GLUCOSE [id number] 09:05:00 Test Item Value Reference Range Comments POC-GLUCOSE METER (BEAKER) 306 mg/dL 70-110 TESTE D AT [facility] [address] [facility] (test code = 1538) [place] [id number] OCCULT BLOOD, [id number] 06:52:00 Test Item Value Reference Range Comments FECAL OCCULT BLOOD (BEAKER) (test code = 618) Positive Ne gative [id number] 05:42:00 Test Item Value Reference Range Comments PARTIAL THROMBOPLASTIN TIME (BEAKER) (test code 70.5 seconds 22.5-36.0 = 760) IRON, TIBC, % SAT. (WITHOUT FERRITIN)[id number] 05:42:00 Test Item Value Reference Range Comments IRON (BEAKER) (test code = 547) 58 ug/dL 40-160 TOTAL IRON BINDING CAPACITY (BEAKER) (test code = 195 ug/dL 250-450 769) IRON % SATURATION (2) (BEAKER) (test code = 2590) 30 % 20-55 BASIC METABOLIC [id number] 03:53:00 Test Item Value Reference Range Comments SODIUM (BEAKER) (test 134 meq/L 136-145 code = 381) POTASSIUM (BEAKER) (test 4.1 meq/L 3.5-5.1 code = 379) CHLORIDE (BEAKER) (test 98 meq/L 98-107 code = 382) CO2 (BEAKER) (test code = 27 meq/L 22-29 355) BLOOD UREA NITROGEN 16 mg/dL 7-21 (BEAKER) (test code = 354) CREATININE (BEAKER) (test 3.58 mg/dL 0.57-1.25 code = 358) GLUCOSE RANDOM (BEAKER) 103 mg/dL 70-105 (test code = 652) CALCIUM (BEAKER) (test 8.3 mg/dL 8.4-10.2 code = 697) EGFR (BEAKER) (test code 21 mL/min/1.73 sq m EST IMATED GFR IS NOT = 1092) ACCURATE CREA TININE CLEARANCE IN PRE DICTING GLOMERULAR FILTR ATION RATE. ESTIMATED GFR IS NOT APPLICABLE F OR DIALYSIS PATIENT S. [id number] 03:51:00 Test Item Value Reference Range Comments PHOSPHORUS (BEAKER) (test code = 604) 3.2 mg/dL 2.3-4.7 [id number] 03:51:00 Test Item Value Reference Range Comments PARTIAL THROMBOPLASTIN TIME (BEAKER) (test 122.0 seconds 22.5- 36.0 code = 760) While on warfarin.PROTHROMBIN TIME/[id number] 03:48:00 Test Item Value Reference Range Comments PROTIME (BEAKER) (test code = 759) 16.3 seconds 11.7-14.7 INR (BEAKER) (test code = 370) 1.3 <=5.9 RECOMMENDED COUMADIN/WARFARIN INR THERAPY RANGESSTANDARD DOSE: 2.0 - 3.0 Includes: PROPHYLAXIS forvenous thrombosis, systemic embolization; TREATMENT for venous thrombosis and/or pulmonary embolus.HIGH RISK: Target INR is 2.5-3.5 for patients with mechanical heart valves.While on warfarin.[id number] 03:44:00 Test Item Value Reference Range Comments MAGNESIUM (BEAKER) (test code = 627) 1.7 mg/dL 1.6-2.6 CBC W/PLT COUNT & AUTO [id number] 03:38:00 Test Item Value Reference Range Comments WHITE BLOOD CELL COUNT (BEAKER) (test code = 775) 6.7 K/ L 3.5-10.5 RED BLOOD CELL COUNT (BEAKER) (test code = 761) 2.37 M/ L 4.63-6.08 HEMOGLOBIN (BEAKER) (test code = 410) 7.4 GM/DL 13.7-17.5 HEMATOCRIT (BEAKER) (test code = 411) 23.0 % 40.1-51.0 MEAN CORPUSCULAR VOLUME (BEAKER) (test code = 97.0 fL 79 .0-92.2 753) MEAN CORPUSCULAR HEMOGLOBIN (BEAKER) (test code = 31.2 pg 25.7-32.2 751) MEAN CORPUSCULAR HEMOGLOBIN CONC (BEAKER) (test 32.2 GM/DL 32.3-36.5 code = 752) RED CELL DISTRIBUTION WIDTH (BEAKER) (test code = 19.9 % 11.6-14.4 412) PLATELET COUNT (BEAKER) (test code = 756) 80 K/CU MM 150-45 0 MEAN PLATELET VOLUME (BEAKER) (test code = 754) 9.3 fL 9.4-12.4 NUCLEATED RED BLOOD CELLS (BEAKER) (test code = 0 /100 WBC 0-0 413) NEUTROPHILS RELATIVE PERCENT (BEAKER) (test code 81 % = 429) LYMPHOCYTES RELATIVE PERCENT (BEAKER) (test code 10 % = 430) MONOCYTES RELATIVE PERCENT (BEAKER) (test code = 8 % 431) EOSINOPHILS RELATIVE PERCENT (BEAKER) (test code 0 % = 432) BASOPHILS RELATIVE PERCENT (BEAKER) (test code = 0 % 437) NEUTROPHILS ABSOLUTE COUNT (BEAKER) (test code = 5.39 K/ L 1.78-5.38 670) LYMPHOCYTES ABSOLUTE COUNT (BEAKER) (test code = 0.64 K/ L 1.32-3.57 414) MONOCYTES ABSOLUTE COUNT (BEAKER) (test code = 0.55 K/ L 0 .30-0.82 415) EOSINOPHILS ABSOLUTE COUNT (BEAKER) (test code = 0.02 K/ L 0.04-0.54 416) BASOPHILS ABSOLUTE COUNT (BEAKER) (test code = 0.02 K/ L 0 .01-0.08 417) IMMATURE GRANULOCYTES-RELATIVE PERCENT (BEAKER) 1 % 0-1 (test code = 2801) POCT-GLUCOSE [id number] 23:35:00 Test Item Value Reference Range Comments POC-GLUCOSE METER (BEAKER) 149 mg/dL 70-110 TESTE D AT [facility] [address] (test code = 1538) [place] [address] [id number] 20:08:00 Test Item Value Reference Range Comments PARTIAL THROMBOPLASTIN TIME (BEAKER) (test code 55.6 seconds 22.5-36.0 = 760) [id number] 15:10:00 Test Item Value Reference Range Comments PARTIAL THROMBOPLASTIN TIME (BEAKER) (test code 81.4 seconds 22.5-36.0 = 760) POCT-GLUCOSE [id number] 11:58:00 Test Item Value Reference Range Comments POC-GLUCOSE METER (BEAKER) 124 mg/dL 70-110 TESTE D AT [facility] [address] [facility] (test code = 1538) [facility] [address] RAD, CHEST, 1 VIEW, NON [id number] 08:59:00Reason for exam:->s/p mvrShould this be performed at the bedside?->YesFINAL REPORT Chest one view compared to January 24 Discussion: Left IJ line, atrial appendage clip, cardiac valve replacement noted. Mild interstitial congestion. No gross effusion or pneumothorax. IMPRESSIONS: No significant change Signed: Rhea Colindres Verified Date/Time:01/29/2018 08:59:39 Reading Location: [facility] Radiology Reading Room POCT-GLUCOSE [id number] 07:41:00 Test Item Value Reference Range Comments POC-GLUCOSE METER (BEAKER) 113 mg/dL 70-110 TESTE D AT [facility] [address] [facility] (test code = 1538) [place] [id number] [id number] 07:23:00 Test Item Value Reference Range Comments PARTIAL THROMBOPLASTIN TIME (BEAKER) (test code 89.8 seconds 22.5-36.0 = 760) BASIC METABOLIC [id number] 06:05:00 Test Item Value Reference Range Comments SODIUM (BEAKER) (test 134 meq/L 136-145 code = 381) POTASSIUM (BEAKER) (test 3.9 meq/L 3.5-5.1 code = 379) CHLORIDE (BEAKER) (test 96 meq/L 98-107 code = 382) CO2 (BEAKER) (test code = 28 meq/L 22-29 355) BLOOD UREA NITROGEN 33 mg/dL 7-21 (BEAKER) (test code = 354) CREATININE (BEAKER) (test 6.43 mg/dL 0.57-1.25 code = 358) GLUCOSE RANDOM (BEAKER) 85 mg/dL 70-105 (test code = 652) CALCIUM (BEAKER) (test 8.4 mg/dL 8.4-10.2 code = 697) EGFR (BEAKER) (test code 11 mL/min/1.73 sq m EST IMATED GFR IS NOT = 1092) ACCURATE CREA TININE CLEARANCE IN PRE DICTING GLOMERULAR FILTR ATION RATE. ESTIMATED GFR IS NOT APPLICABLE F OR DIALYSIS PATIENT S. PROTHROMBIN [id number] 05:59:00 Test Item Value Reference Range Comments PROTIME (BEAKER) (test code = 759) 17.0 seconds 11.7-14.7 INR (BEAKER) (test code = 370) 1.4 <=5.9 RECOMMENDED COUMADIN/WARFARIN INR THERAPY RANGESSTANDARD DOSE: 2.0 - 3.0 Includes: PROPHYLAXIS forvenous thrombosis, systemic embolization; TREATMENT for venous thrombosis and/or pulmonary embolus.HIGH RISK: Target INR is 2.5-3.5 for patients with mechanical heart valves.While on warfarin.[id number] 05:56:00 Test Item Value Reference Range Comments PHOSPHORUS (BEAKER) (test code = 604) 5.3 mg/dL 2.3-4.7 [id number] 05:56:00 Test Item Value Reference Range Comments MAGNESIUM (BEAKER) (test code = 627) 1.9 mg/dL 1.6-2.6 CBC W/PLT COUNT & AUTO [id number] 05:38:00 Test Item Value Reference Range Comments WHITE BLOOD CELL COUNT (BEAKER) (test code = 6.7 K/ L 3.5 -10.5 775) RED BLOOD CELL COUNT (BEAKER) (test code = 761) 2.40 M/ L 4.63-6.08 HEMOGLOBIN (BEAKER) (test code = 410) 7.4 GM/DL 13.7-17.5 HEMATOCRIT (BEAKER) (test code = 411) 23.6 % 40.1-51.0 MEAN CORPUSCULAR VOLUME (BEAKER) (test code = 98.3 fL 79 .0-92.2 753) MEAN CORPUSCULAR HEMOGLOBIN (BEAKER) (test code 30.8 pg 25.7-32.2 = 751) MEAN CORPUSCULAR HEMOGLOBIN CONC (BEAKER) (test 31.4 GM/DL 32.3-36.5 code = 752) RED CELL DISTRIBUTION WIDTH (BEAKER) (test code 20.1 % 11.6-14.4 = 412) PLATELET COUNT (BEAKER) (test code = 756) 106 K/CU MM 150-45 0 MEAN PLATELET VOLUME (BEAKER) (test code = 754) 9.9 fL 9.4-12.4 NUCLEATED RED BLOOD CELLS (BEAKER) (test code = 0 /100 WBC 0-0 413) NEUTROPHILS RELATIVE PERCENT (BEAKER) (test code 77 % = 429) LYMPHOCYTES RELATIVE PERCENT (BEAKER) (test code 14 % = 430) MONOCYTES RELATIVE PERCENT (BEAKER) (test code = 7 % 431) EOSINOPHILS RELATIVE PERCENT (BEAKER) (test code 1 % = 432) BASOPHILS RELATIVE PERCENT (BEAKER) (test code = 0 % 437) NEUTROPHILS ABSOLUTE COUNT (BEAKER) (test code = 5.17 K/ L 1.78-5.38 670) LYMPHOCYTES ABSOLUTE COUNT (BEAKER) (test code = 0.91 K/ L 1.32-3.57 414) MONOCYTES ABSOLUTE COUNT (BEAKER) (test code = 0.50 K/ L 0 .30-0.82 415) EOSINOPHILS ABSOLUTE COUNT (BEAKER) (test code = 0.06 K/ L 0.04-0.54 416) BASOPHILS ABSOLUTE COUNT (BEAKER) (test code = 0.01 K/ L 0 .01-0.08 417) IMMATURE GRANULOCYTES-RELATIVE PERCENT (BEAKER) 1 % 0-1 (test code = 2801) [id number] 01:07:00 Test Item Value Reference Range Comments PARTIAL THROMBOPLASTIN TIME (BEAKER) (test code 63.5 seconds 22.5-36.0 = 760) [id number] 18:24:00 Test Item Value Reference Range Comments PARTIAL THROMBOPLASTIN TIME (BEAKER) (test code 56.6 seconds 22.5-36.0 = 760) POCT-GLUCOSE [id number] 18:14:00 Test Item Value Reference Range Comments POC-GLUCOSE METER (BEAKER) 101 mg/dL 70-110 TESTE D AT [facility] [address] [facility] (test code = 1538) [place] [address] [id number] 13:57:00 Test Item Value Reference Range Comments PARTIAL THROMBOPLASTIN TIME (BEAKER) (test 122.3 seconds 22.5- 36.0 code = 760) POCT-GLUCOSE [id number] 13:08:00 Test Item Value Reference Range Comments POC-GLUCOSE METER (BEAKER) 105 mg/dL 70-110 TESTE D AT [facility] [address] (test code = 1538) [facility] [address] BASIC METABOLIC [id number] 04:31:00 Test Item Value Reference Range Comments SODIUM (BEAKER) (test 136 meq/L 136-145 code = 381) POTASSIUM (BEAKER) (test 3.7 meq/L 3.5-5.1 code = 379) CHLORIDE (BEAKER) (test 98 meq/L 98-107 code = 382) CO2 (BEAKER) (test code = 27 meq/L 22-29 355) BLOOD UREA NITROGEN 23 mg/dL 7-21 (BEAKER) (test code = 354) CREATININE (BEAKER) (test 4.45 mg/dL 0.57-1.25 code = 358) GLUCOSE RANDOM (BEAKER) 92 mg/dL 70-105 (test code = 652) CALCIUM (BEAKER) (test 8.2 mg/dL 8.4-10.2 code = 697) EGFR (BEAKER) (test code 16 mL/min/1.73 sq m EST IMATED GFR IS NOT = 1092) ACCURATE CREA TININE CLEARANCE IN PRE DICTING GLOMERULAR FILTR ATION RATE. ESTIMATED GFR IS NOT APPLICABLE F OR DIALYSIS PATIENT S. [id number] 04:28:00 Test Item Value Reference Range Comments PHOSPHORUS (BEAKER) (test code = 604) 3.9 mg/dL 2.3-4.7 [id number] 04:28:00 Test Item Value Reference Range Comments MAGNESIUM (BEAKER) (test code = 627) 1.7 mg/dL 1.6-2.6 HEPATIC FUNCTION [id number] 04:28:00 Test Item Value Reference Range Comments TOTAL PROTEIN (BEAKER) (test code = 770) 5.1 gm/dL 6.0-8.3 ALBUMIN (BEAKER) (test code = 1145) 2.3 g/dL 3.5-5.0 BILIRUBIN TOTAL (BEAKER) (test code = 377) 2.1 mg/dL 0.2-1 .2 BILIRUBIN DIRECT (BEAKER) (test code = 706) 1.7 mg/dL 0.1- 0.5 ALKALINE PHOSPHATASE (BEAKER) (test code = 346) 65 U/L 40-150 AST (SGOT) (BEAKER) (test code = 353) 31 U/L 5-34 ALT (SGPT) (BEAKER) (test code = 347) 33 U/L 6-55 [id number] 04:20:00 Test Item Value Reference Range Comments PARTIAL THROMBOPLASTIN TIME (BEAKER) (test 106.2 seconds 22.5- 36.0 code = 760) While on warfarin.PROTHROMBIN [id number] 04:15:00 Test Item Value Reference Range Comments PROTIME (BEAKER) (test code = 759) 18.4 seconds 11.7-14.7 INR (BEAKER) (test code = 370) 1.5 <=5.9 RECOMMENDED COUMADIN/WARFARIN INR THERAPY RANGESSTANDARD DOSE: 2.0 - 3.0 Includes: PROPHYLAXIS forvenous thrombosis, systemic embolization; TREATMENT for venous thrombosis and/or pulmonary embolus.HIGH RISK: Target INR is 2.5-3.5 for patients with mechanical heart valves.While on warfarin.CBC W/PLT COUNT & AUTO [id number] 04:05:00 Test Item Value Reference Range Comments WHITE BLOOD CELL COUNT (BEAKER) (test code = 775) 8.0 K/ L 3.5-10.5 RED BLOOD CELL COUNT (BEAKER) (test code = 761) 2.27 M/ L 4.63-6.08 HEMOGLOBIN (BEAKER) (test code = 410) 7.1 GM/DL 13.7-17.5 HEMATOCRIT (BEAKER) (test code = 411) 22.1 % 40.1-51.0 MEAN CORPUSCULAR VOLUME (BEAKER) (test code = 97.4 fL 79 .0-92.2 753) MEAN CORPUSCULAR HEMOGLOBIN (BEAKER) (test code = 31.3 pg 25.7-32.2 751) MEAN CORPUSCULAR HEMOGLOBIN CONC (BEAKER) (test 32.1 GM/DL 32.3-36.5 code = 752) RED CELL DISTRIBUTION WIDTH (BEAKER) (test code = 20.5 % 11.6-14.4 412) PLATELET COUNT (BEAKER) (test code = 756) 96 K/CU MM 150-45 0 MEAN PLATELET VOLUME (BEAKER) (test code = 754) 10.1 fL 9.4-12.4 NUCLEATED RED BLOOD CELLS (BEAKER) (test code = 0 /100 WBC 0-0 413) NEUTROPHILS RELATIVE PERCENT (BEAKER) (test code 78 % = 429) LYMPHOCYTES RELATIVE PERCENT (BEAKER) (test code 12 % = 430) MONOCYTES RELATIVE PERCENT (BEAKER) (test code = 8 % 431) EOSINOPHILS RELATIVE PERCENT (BEAKER) (test code 1 % = 432) BASOPHILS RELATIVE PERCENT (BEAKER) (test code = 0 % 437) NEUTROPHILS ABSOLUTE COUNT (BEAKER) (test code = 6.25 K/ L 1.78-5.38 670) LYMPHOCYTES ABSOLUTE COUNT (BEAKER) (test code = 0.96 K/ L 1.32-3.57 414) MONOCYTES ABSOLUTE COUNT (BEAKER) (test code = 0.60 K/ L 0 .30-0.82 415) EOSINOPHILS ABSOLUTE COUNT (BEAKER) (test code = 0.04 K/ L 0.04-0.54 416) BASOPHILS ABSOLUTE COUNT (BEAKER) (test code = 0.02 K/ L 0 .01-0.08 417) IMMATURE GRANULOCYTES-RELATIVE PERCENT (BEAKER) 2 % 0-1 (test code = 2801) POCT-GLUCOSE [id number] 00:29:00 Test Item Value Reference Range Comments POC-GLUCOSE METER (BEAKER) 119 mg/dL 70-110 TESTE D AT [address] (test code = 1538) [place] [address] [id number] 00:24:00 Test Item Value Reference Range Comments PARTIAL THROMBOPLASTIN TIME (BEAKER) (test code 72.4 seconds 22.5-36.0 = 760) POCT-GLUCOSE [id number] 18:33:00 Test Item Value Reference Range Comments POC-GLUCOSE METER (BEAKER) 158 mg/dL 70-110 TESTE D AT [address] (test code = 1538) [place] [address] [id number] 18:22:00 Test Item Value Reference Range Comments PARTIAL THROMBOPLASTIN TIME (BEAKER) (test code 78.6 seconds 22.5-36.0 = 760) POCT-GLUCOSE [id number] 12:20:00 Test Item Value Reference Range Comments POC-GLUCOSE METER (BEAKER) 110 mg/dL 70-110 TESTE D AT [facility] [address] (test code = 1538) [place] [address] [id number] 12:04:00 Test Item Value Reference Range Comments PARTIAL THROMBOPLASTIN TIME (BEAKER) (test code 98.0 seconds 22.5-36.0 = 760) [id number] 04:11:00 Test Item Value Reference Range Comments PROTIME (BEAKER) (test code = 759) 15.2 seconds 11.7-14.7 INR (BEAKER) (test code = 370) 1.2 <=5.9 PARTIAL THROMBOPLASTIN TIME (BEAKER) (test code 67.9 seconds 22.5-36.0 = 760) RECOMMENDED COUMADIN/WARFARIN INR THERAPY RANGESSTANDARD DOSE: 2.0 - 3.0 Includes: PROPHYLAXIS forvenous thrombosis, systemic embolization; TREATMENT for venous thrombosis and/or pulmonary embolus.HIGH RISK: Target INR is 2.5-3.5 for patients with mechanical heart valves.While on warfarin.While on warfarin. PROTHROMBIN [id number] 04:10:00 Test Item Value Reference Range Comments PROTIME (BEAKER) (test code = 759) 15.2 seconds 11.7-14.7 INR (BEAKER) (test code = 370) 1.2 <=5.9 RECOMMENDED COUMADIN/WARFARIN INR THERAPY RANGESSTANDARD DOSE: 2.0 - 3.0 Includes: PROPHYLAXIS forvenous thrombosis, systemic embolization; TREATMENT for venous thrombosis and/or pulmonary embolus.HIGH RISK: Target INR is 2.5-3.5 for patients with mechanical heart valves.BASIC METABOLIC [id number] 03:53:00 Test Item Value Reference Range Comments SODIUM (BEAKER) (test 134 meq/L 136-145 code = 381) POTASSIUM (BEAKER) (test 3.9 meq/L 3.5-5.1 code = 379) CHLORIDE (BEAKER) (test 96 meq/L 98-107 code = 382) CO2 (BEAKER) (test code = 23 meq/L 22-29 355) BLOOD UREA NITROGEN 52 mg/dL 7-21 (BEAKER) (test code = 354) CREATININE (BEAKER) (test 6.75 mg/dL 0.57-1.25 code = 358) GLUCOSE RANDOM (BEAKER) 107 mg/dL 70-105 (test code = 652) CALCIUM (BEAKER) (test 8.7 mg/dL 8.4-10.2 code = 697) EGFR (BEAKER) (test code 10 mL/min/1.73 sq m EST IMATED GFR IS NOT = 1092) ACCURATE CREA TININE CLEARANCE IN PRE DICTING GLOMERULAR FILTR ATION RATE. ESTIMATED GFR IS NOT APPLICABLE F OR DIALYSIS PATIENT S. CBC W/PLT COUNT & AUTO [id number] 03:50:00 Test Item Value Reference Range Comments WHITE BLOOD CELL COUNT (BEAKER) (test code = 10.5 K/ L 3.5 -10.5 775) RED BLOOD CELL COUNT (BEAKER) (test code = 761) 2.55 M/ L 4.63-6.08 HEMOGLOBIN (BEAKER) (test code = 410) 8.0 GM/DL 13.7-17.5 HEMATOCRIT (BEAKER) (test code = 411) 24.6 % 40.1-51.0 MEAN CORPUSCULAR VOLUME (BEAKER) (test code = 96.5 fL 79 .0-92.2 753) MEAN CORPUSCULAR HEMOGLOBIN (BEAKER) (test code 31.4 pg 25.7-32.2 = 751) MEAN CORPUSCULAR HEMOGLOBIN CONC (BEAKER) (test 32.5 GM/DL 32.3-36.5 code = 752) RED CELL DISTRIBUTION WIDTH (BEAKER) (test code 19.8 % 11.6-14.4 = 412) PLATELET COUNT (BEAKER) (test code = 756) 141 K/CU MM 150-45 0 MEAN PLATELET VOLUME (BEAKER) (test code = 754) 9.6 fL 9.4-12.4 NUCLEATED RED BLOOD CELLS (BEAKER) (test code = 0 /100 WBC 0-0 413) NEUTROPHILS RELATIVE PERCENT (BEAKER) (test code 80 % = 429) LYMPHOCYTES RELATIVE PERCENT (BEAKER) (test code 11 % = 430) MONOCYTES RELATIVE PERCENT (BEAKER) (test code = 7 % 431) EOSINOPHILS RELATIVE PERCENT (BEAKER) (test code 1 % = 432) BASOPHILS RELATIVE PERCENT (BEAKER) (test code = 0 % 437) NEUTROPHILS ABSOLUTE COUNT (BEAKER) (test code = 8.37 K/ L 1.78-5.38 670) LYMPHOCYTES ABSOLUTE COUNT (BEAKER) (test code = 1.11 K/ L 1.32-3.57 414) MONOCYTES ABSOLUTE COUNT (BEAKER) (test code = 0.73 K/ L 0 .30-0.82 415) EOSINOPHILS ABSOLUTE COUNT (BEAKER) (test code = 0.07 K/ L 0.04-0.54 416) BASOPHILS ABSOLUTE COUNT (BEAKER) (test code = 0.02 K/ L 0 .01-0.08 417) IMMATURE GRANULOCYTES-RELATIVE PERCENT (BEAKER) 2 % 0-1 (test code = 2801) [id number] 03:45:00 Test Item Value Reference Range Comments PHOSPHORUS (BEAKER) (test code = 604) 4.7 mg/dL 2.3-4.7 [id number] 03:45:00 Test Item Value Reference Range Comments MAGNESIUM (BEAKER) (test code = 627) 2.0 mg/dL 1.6-2.6 HEPATIC FUNCTION [id number] 03:45:00 Test Item Value Reference Range Comments TOTAL PROTEIN (BEAKER) (test code = 770) 5.5 gm/dL 6.0-8.3 ALBUMIN (BEAKER) (test code = 1145) 2.4 g/dL 3.5-5.0 BILIRUBIN TOTAL (BEAKER) (test code = 377) 2.4 mg/dL 0.2-1 .2 BILIRUBIN DIRECT (BEAKER) (test code = 706) 2.0 mg/dL 0.1- 0.5 ALKALINE PHOSPHATASE (BEAKER) (test code = 346) 69 U/L 40-150 AST (SGOT) (BEAKER) (test code = 353) 34 U/L 5-34 ALT (SGPT) (BEAKER) (test code = 347) 36 U/L 6-55 [id number] 22:16:00 Test Item Value Reference Range Comments PARTIAL THROMBOPLASTIN TIME (BEAKER) (test code 60.7 seconds 22.5-36.0 = 760) POCT-GLUCOSE [id number] 18:32:00 Test Item Value Reference Range Comments POC-GLUCOSE METER (BEAKER) 125 mg/dL 70-110 TESTE D AT [facility] [address] (test code = 1538) [facility] [address] CBC (HEMOGRAM ONLY)[id number] 17:21:00 Test Item Value Reference Range Comments WHITE BLOOD CELL COUNT (BEAKER) (test code = 10.2 K/ L 3.5 -10.5 775) RED BLOOD CELL COUNT (BEAKER) (test code = 761) 2.57 M/ L 4.63-6.08 HEMOGLOBIN (BEAKER) (test code = 410) 8.1 GM/DL 13.7-17.5 HEMATOCRIT (BEAKER) (test code = 411) 24.8 % 40.1-51.0 MEAN CORPUSCULAR VOLUME (BEAKER) (test code = 96.5 fL 79 .0-92.2 753) MEAN CORPUSCULAR HEMOGLOBIN (BEAKER) (test code 31.5 pg 25.7-32.2 = 751) MEAN CORPUSCULAR HEMOGLOBIN CONC (BEAKER) (test 32.7 GM/DL 32.3-36.5 code = 752) RED CELL DISTRIBUTION WIDTH (BEAKER) (test code 19.8 % 11.6-14.4 = 412) PLATELET COUNT (BEAKER) (test code = 756) 148 K/CU MM 150-45 0 MEAN PLATELET VOLUME (BEAKER) (test code = 754) 9.4 fL 9.4-12.4 NUCLEATED RED BLOOD CELLS (BEAKER) (test code = 0 /100 WBC 0-0 413) BASIC METABOLIC [id number] 07:16:00 Test Item Value Reference Range Comments SODIUM (BEAKER) (test 137 meq/L 136-145 code = 381) POTASSIUM (BEAKER) (test 3.6 meq/L 3.5-5.1 code = 379) CHLORIDE (BEAKER) (test 97 meq/L 98-107 code = 382) CO2 (BEAKER) (test code = 27 meq/L 22-29 355) BLOOD UREA NITROGEN 44 mg/dL 7-21 (BEAKER) (test code = 354) CREATININE (BEAKER) (test 5.57 mg/dL 0.57-1.25 code = 358) GLUCOSE RANDOM (BEAKER) 100 mg/dL 70-105 (test code = 652) CALCIUM (BEAKER) (test 8.6 mg/dL 8.4-10.2 code = 697) EGFR (BEAKER) (test code 13 mL/min/1.73 sq m EST IMATED GFR IS NOT = 1092) ACCURATE CREA TININE CLEARANCE IN PRE DICTING GLOMERULAR FILTR ATION RATE. ESTIMATED GFR IS NOT APPLICABLE F OR DIALYSIS PATIENT S. [id number] 07:13:00 Test Item Value Reference Range Comments PHOSPHORUS (BEAKER) (test code = 604) 4.3 mg/dL 2.3-4.7 [id number] 07:13:00 Test Item Value Reference Range Comments MAGNESIUM (BEAKER) (test code = 627) 2.0 mg/dL 1.6-2.6 HEPATIC FUNCTION [id number] 07:13:00 Test Item Value Reference Range Comments TOTAL PROTEIN (BEAKER) (test code = 770) 5.4 gm/dL 6.0-8.3 ALBUMIN (BEAKER) (test code = 1145) 2.4 g/dL 3.5-5.0 BILIRUBIN TOTAL (BEAKER) (test code = 377) 2.6 mg/dL 0.2-1 .2 BILIRUBIN DIRECT (BEAKER) (test code = 706) 2.2 mg/dL 0.1- 0.5 ALKALINE PHOSPHATASE (BEAKER) (test code = 346) 65 U/L 40-150 AST (SGOT) (BEAKER) (test code = 353) 32 U/L 5-34 ALT (SGPT) (BEAKER) (test code = 347) 37 U/L 6-55 [id number] 07:12:00 Test Item Value Reference Range Comments PROTIME (BEAKER) (test code = 759) 14.2 seconds 11.7-14.7 INR (BEAKER) (test code = 370) 1.1 <=5.9 PARTIAL THROMBOPLASTIN TIME (BEAKER) (test code 66.6 seconds 22.5-36.0 = 760) RECOMMENDED COUMADIN/WARFARIN INR THERAPY RANGESSTANDARD DOSE: 2.0 - 3.0 Includes: PROPHYLAXIS forvenous thrombosis, systemic embolization; TREATMENT for venous thrombosis and/or pulmonary embolus.HIGH RISK: Target INR is 2.5-3.5 for patients with mechanical heart valves.CBC W/PLT COUNT & AUTO DIFFERENTIAL 2018-01-26 06:58:00 Test Item Value Reference Range Comments WHITE BLOOD CELL COUNT (BEAKER) (test code = 9.5 K/ L 3.5 -10.5 775) RED BLOOD CELL COUNT (BEAKER) (test code = 761) 2.50 M/ L 4.63-6.08 HEMOGLOBIN (BEAKER) (test code = 410) 7.8 GM/DL 13.7-17.5 HEMATOCRIT (BEAKER) (test code = 411) 24.2 % 40.1-51.0 MEAN CORPUSCULAR VOLUME (BEAKER) (test code = 96.8 fL 79 .0-92.2 753) MEAN CORPUSCULAR HEMOGLOBIN (BEAKER) (test code 31.2 pg 25.7-32.2 = 751) MEAN CORPUSCULAR HEMOGLOBIN CONC (BEAKER) (test 32.2 GM/DL 32.3-36.5 code = 752) RED CELL DISTRIBUTION WIDTH (BEAKER) (test code 19.8 % 11.6-14.4 = 412) PLATELET COUNT (BEAKER) (test code = 756) 142 K/CU MM 150-45 0 MEAN PLATELET VOLUME (BEAKER) (test code = 754) 9.9 fL 9.4-12.4 NUCLEATED RED BLOOD CELLS (BEAKER) (test code = 0 /100 WBC 0-0 413) NEUTROPHILS RELATIVE PERCENT (BEAKER) (test code 81 % = 429) LYMPHOCYTES RELATIVE PERCENT (BEAKER) (test code 9 % = 430) MONOCYTES RELATIVE PERCENT (BEAKER) (test code = 7 % 431) EOSINOPHILS RELATIVE PERCENT (BEAKER) (test code 1 % = 432) BASOPHILS RELATIVE PERCENT (BEAKER) (test code = 0 % 437) NEUTROPHILS ABSOLUTE COUNT (BEAKER) (test code = 7.74 K/ L 1.78-5.38 670) LYMPHOCYTES ABSOLUTE COUNT (BEAKER) (test code = 0.89 K/ L 1.32-3.57 414) MONOCYTES ABSOLUTE COUNT (BEAKER) (test code = 0.62 K/ L 0 .30-0.82 415) EOSINOPHILS ABSOLUTE COUNT (BEAKER) (test code = 0.06 K/ L 0.04-0.54 416) BASOPHILS ABSOLUTE COUNT (BEAKER) (test code = 0.01 K/ L 0 .01-0.08 417) IMMATURE GRANULOCYTES-RELATIVE PERCENT (BEAKER) 2 % 0-1 (test code = 2801) BLOOD [id number] 00:00:00 Test Item Value Reference Range Comments CULTURE (BEAKER) (test code = 1095) No growth in 5 days BLOOD [id number] 00:00:00 Test Item Value Reference Range Comments CULTURE (BEAKER) (test code = 1095) No growth in 5 days POCT-GLUCOSE [id number] 23:37:00 Test Item Value Reference Range Comments POC-GLUCOSE METER (BEAKER) 87 mg/dL 70-110 TESTE D AT [address] (test code = 1538) [place] [id number] [id number] 23:06:00 Test Item Value Reference Range Comments PARTIAL THROMBOPLASTIN TIME (BEAKER) (test code 81.8 seconds 22.5-36.0 = 760) POCT-GLUCOSE [id number] 20:42:00 Test Item Value Reference Range Comments POC-GLUCOSE METER (BEAKER) 193 mg/dL 70-110 TESTE D AT [address] (test code = 1538) [place] [id number] HEMOGLOBIN AND [id number] 17:40:00 Test Item Value Reference Range Comments HEMOGLOBIN (BEAKER) (test code = 410) 8.4 GM/DL 13.7-17.5 HEMATOCRIT (BEAKER) (test code = 411) 25.4 % 40.1-51.0 [id number] 13:06:00 Test Item Value Reference Range Comments PARTIAL THROMBOPLASTIN TIME (BEAKER) (test code 61.4 seconds 22.5-36.0 = 760) POCT-GLUCOSE [id number] 12:56:00 Test Item Value Reference Range Comments POC-GLUCOSE METER (BEAKER) 116 mg/dL 70-110 TESTE D AT [address] (test code = 1538) [place] [id number] [id number] 06:43:00 Test Item Value Reference Range Comments FERRITIN (BEAKER) (test code = 361) 2521 ng/mL 5-275 IRON, TIBC, % SAT. (WITHOUT FERRITIN)2018-01-25 05:51:00 Test Item Value Reference Range Comments IRON (BEAKER) (test code = 547) 61 ug/dL 40-160 TOTAL IRON BINDING CAPACITY (BEAKER) (test code = 165 ug/dL 250-450 769) IRON % SATURATION (2) (BEAKER) (test code = 2590) 37 % 20-55 [id number] 05:32:00 Test Item Value Reference Range Comments PARTIAL THROMBOPLASTIN TIME (BEAKER) (test code 63.7 seconds 22.5-36.0 = 760) BASIC METABOLIC [id number] 05:03:00 Test Item Value Reference Range Comments SODIUM (BEAKER) (test 140 meq/L 136-145 code = 381) POTASSIUM (BEAKER) (test 3.8 meq/L 3.5-5.1 code = 379) CHLORIDE (BEAKER) (test 99 meq/L 98-107 code = 382) CO2 (BEAKER) (test code = 28 meq/L 22-29 355) BLOOD UREA NITROGEN 32 mg/dL 7-21 (BEAKER) (test code = 354) CREATININE (BEAKER) (test 3.87 mg/dL 0.57-1.25 code = 358) GLUCOSE RANDOM (BEAKER) 145 mg/dL 70-105 (test code = 652) CALCIUM (BEAKER) (test 8.5 mg/dL 8.4-10.2 code = 697) EGFR (BEAKER) (test code 19 mL/min/1.73 sq m EST IMATED GFR IS NOT = 1092) ACCURATE CREA TININE CLEARANCE IN PRE DICTING GLOMERULAR FILTR ATION RATE. ESTIMATED GFR IS NOT APPLICABLE F OR DIALYSIS PATIENT S. HEPATIC FUNCTION [id number] 05:00:00 Test Item Value Reference Range Comments TOTAL PROTEIN (BEAKER) (test code = 770) 5.3 gm/dL 6.0-8.3 ALBUMIN (BEAKER) (test code = 1145) 2.3 g/dL 3.5-5.0 BILIRUBIN TOTAL (BEAKER) (test code = 377) 3.0 mg/dL 0.2-1 .2 BILIRUBIN DIRECT (BEAKER) (test code = 706) 2.5 mg/dL 0.1- 0.5 ALKALINE PHOSPHATASE (BEAKER) (test code = 346) 72 U/L 40-150 AST (SGOT) (BEAKER) (test code = 353) 34 U/L 5-34 ALT (SGPT) (BEAKER) (test code = 347) 41 U/L 6-55 [id number] 04:40:00 Test Item Value Reference Range Comments PROTIME (BEAKER) (test code = 759) 14.5 seconds 11.7-14.7 INR (BEAKER) (test code = 370) 1.1 <=5.9 PARTIAL THROMBOPLASTIN TIME (BEAKER) (test code 64.1 seconds 22.5-36.0 = 760) RECOMMENDED COUMADIN/WARFARIN INR THERAPY RANGESSTANDARD DOSE: 2.0 - 3.0 Includes: PROPHYLAXIS forvenous thrombosis, systemic embolization; TREATMENT for venous thrombosis and/or pulmonary embolus.HIGH RISK: Target INR is 2.5-3.5 for patients with mechanical heart valves.CBC (HEMOGRAM ONLY)2018-01-25 04:27:00 Test Item Value Reference Range Comments WHITE BLOOD CELL COUNT (BEAKER) (test code = 11.7 K/ L 3.5 -10.5 775) RED BLOOD CELL COUNT (BEAKER) (test code = 761) 2.55 M/ L 4.63-6.08 HEMOGLOBIN (BEAKER) (test code = 410) 7.9 GM/DL 13.7-17.5 HEMATOCRIT (BEAKER) (test code = 411) 24.6 % 40.1-51.0 MEAN CORPUSCULAR VOLUME (BEAKER) (test code = 96.5 fL 79 .0-92.2 753) MEAN CORPUSCULAR HEMOGLOBIN (BEAKER) (test code 31.0 pg 25.7-32.2 = 751) MEAN CORPUSCULAR HEMOGLOBIN CONC (BEAKER) (test 32.1 GM/DL 32.3-36.5 code = 752) RED CELL DISTRIBUTION WIDTH (BEAKER) (test code 20.1 % 11.6-14.4 = 412) PLATELET COUNT (BEAKER) (test code = 756) 123 K/CU MM 150-45 0 MEAN PLATELET VOLUME (BEAKER) (test code = 754) 10.1 fL 9.4-12.4 NUCLEATED RED BLOOD CELLS (BEAKER) (test code = 0 /100 WBC 0-0 413) POCT-GLUCOSE [id number] 00:30:00 Test Item Value Reference Range Comments POC-GLUCOSE METER (BEAKER) 112 mg/dL 70-110 TESTE D AT [facility] [address] (test code = 1538) [place] [address] CBC W/PLT COUNT & AUTO [id number] 19:16:00 Test Item Value Reference Range Comments WHITE BLOOD CELL COUNT (BEAKER) (test code = 15.7 K/ L 3.5 -10.5 775) RED BLOOD CELL COUNT (BEAKER) (test code = 761) 2.89 M/ L 4.63-6.08 HEMOGLOBIN (BEAKER) (test code = 410) 9.1 GM/DL 13.7-17.5 HEMATOCRIT (BEAKER) (test code = 411) 27.3 % 40.1-51.0 MEAN CORPUSCULAR VOLUME (BEAKER) (test code = 94.5 fL 79 .0-92.2 753) MEAN CORPUSCULAR HEMOGLOBIN (BEAKER) (test code 31.5 pg 25.7-32.2 = 751) MEAN CORPUSCULAR HEMOGLOBIN CONC (BEAKER) (test 33.3 GM/DL 32.3-36.5 code = 752) RED CELL DISTRIBUTION WIDTH (BEAKER) (test code 19.9 % 11.6-14.4 = 412) PLATELET COUNT (BEAKER) (test code = 756) 149 K/CU MM 150-45 0 MEAN PLATELET VOLUME (BEAKER) (test code = 754) 9.6 fL 9.4-12.4 NUCLEATED RED BLOOD CELLS (BEAKER) (test code = 0 /100 WBC 0-0 413) NEUTROPHILS RELATIVE PERCENT (BEAKER) (test code 88 % = 429) LYMPHOCYTES RELATIVE PERCENT (BEAKER) (test code 5 % = 430) MONOCYTES RELATIVE PERCENT (BEAKER) (test code = 6 % 431) EOSINOPHILS RELATIVE PERCENT (BEAKER) (test code 0 % = 432) BASOPHILS RELATIVE PERCENT (BEAKER) (test code = 0 % 437) NEUTROPHILS ABSOLUTE COUNT (BEAKER) (test code = 13.71 K/ L 1.78-5.38 670) LYMPHOCYTES ABSOLUTE COUNT (BEAKER) (test code = 0.76 K/ L 1.32-3.57 414) MONOCYTES ABSOLUTE COUNT (BEAKER) (test code = 0.90 K/ L 0 .30-0.82 415) EOSINOPHILS ABSOLUTE COUNT (BEAKER) (test code = 0.07 K/ L 0.04-0.54 416) BASOPHILS ABSOLUTE COUNT (BEAKER) (test code = 0.02 K/ L 0 .01-0.08 417) IMMATURE GRANULOCYTES-RELATIVE PERCENT (BEAKER) 1 % 0-1 (test code = 2801) POCT-GLUCOSE [id number] 18:27:00 Test Item Value Reference Range Comments POC-GLUCOSE METER (BEAKER) 102 mg/dL 70-110 TESTE D AT [facility] [address] [facility] (test code = 1538) [place] [address] POCT-GLUCOSE [id number] 13:01:00 Test Item Value Reference Range Comments POC-GLUCOSE METER (BEAKER) 119 mg/dL 70-110 TESTE D AT [place] [id number] [facility] (test code = 1538) [place] [address] RAD, CHEST, 1 VIEW, NON [id number] 10:59:00Reason for exam:->ptxShould this be performed at the bedside?->YesFINAL REPORT Portable chest CLINICAL HISTORY: Pneumothorax Comparison: January 23, 2018. FINDINGS: The cardiac silhouette is enlarged. The patient is status post sternotomy and valve replacement with a left-sided jugular line and nasogastric tube in place. The right-sided chest tube has been removed. Increased interstitial and patchy air space opacities are seen. No pleural effusion or pneumothorax noted. Degenerative changes are noted IMPRESSION: Removal of right- sided chest tube. Mild increase in pulmonary opacities. Signed: Sarah Beth Mejia MDReport Verified Date/Time: 01/24/2018 10:59:29 Reading Location: [facility] Diagnostic Imaging Reading Room - [place] [address] BRONCHIAL CULTURE + GRAM STAIN 2018-01-24 08:53:00 Test Item Value Reference Range Comments CULTURE (BEAKER) (test code 2+ Normal respiratory pete = 1095) present GRAM STAIN RESULT (BEAKER) 4+ White blood cells seen (test code = 1123) GRAM STAIN RESULT (BEAKER) No organisms seen (test code = 08121) POCT-GLUCOSE [id number] 06:28:00 Test Item Value Reference Range Comments POC-GLUCOSE METER (BEAKER) 119 mg/dL 70-110 TESTE D AT [facility] [address] (test code = 1538) [place] [address] BASIC METABOLIC [id number] 04:41:00 Test Item Value Reference Range Comments SODIUM (BEAKER) (test 138 meq/L 136-145 code = 381) POTASSIUM (BEAKER) (test 4.1 meq/L 3.5-5.1 code = 379) CHLORIDE (BEAKER) (test 98 meq/L 98-107 code = 382) CO2 (BEAKER) (test code = 24 meq/L 22-29 355) BLOOD UREA NITROGEN 59 mg/dL 7-21 (BEAKER) (test code = 354) CREATININE (BEAKER) (test 5.65 mg/dL 0.57-1.25 code = 358) GLUCOSE RANDOM (BEAKER) 118 mg/dL 70-105 (test code = 652) CALCIUM (BEAKER) (test 8.8 mg/dL 8.4-10.2 code = 697) EGFR (BEAKER) (test code 13 mL/min/1.73 sq m EST IMATED GFR IS NOT = 1092) ACCURATE CREA TININE CLEARANCE IN PRE DICTING GLOMERULAR FILTR ATION RATE. ESTIMATED GFR IS NOT APPLICABLE F OR DIALYSIS PATIENT S. Specimen slightly ictericCBC (HEMOGRAM ONLY)2018-01-24 04:34:00 Test Item Value Reference Range Comments WHITE BLOOD CELL COUNT (BEAKER) (test code = 13.4 K/ L 3.5 -10.5 775) RED BLOOD CELL COUNT (BEAKER) (test code = 761) 2.40 M/ L 4.63-6.08 HEMOGLOBIN (BEAKER) (test code = 410) 7.4 GM/DL 13.7-17.5 HEMATOCRIT (BEAKER) (test code = 411) 22.8 % 40.1-51.0 MEAN CORPUSCULAR VOLUME (BEAKER) (test code = 95.0 fL 79 .0-92.2 753) MEAN CORPUSCULAR HEMOGLOBIN (BEAKER) (test code 30.8 pg 25.7-32.2 = 751) MEAN CORPUSCULAR HEMOGLOBIN CONC (BEAKER) (test 32.5 GM/DL 32.3-36.5 code = 752) RED CELL DISTRIBUTION WIDTH (BEAKER) (test code 19.8 % 11.6-14.4 = 412) PLATELET COUNT (BEAKER) (test code = 756) 107 K/CU MM 150-45 0 MEAN PLATELET VOLUME (BEAKER) (test code = 754) 10.6 fL 9.4-12.4 NUCLEATED RED BLOOD CELLS (BEAKER) (test code = 0 /100 WBC 0-0 413) [id number] 04:21:00 Test Item Value Reference Range Comments MAGNESIUM (BEAKER) (test code = 627) 2.0 mg/dL 1.6-2.6 HEPATIC FUNCTION [id number] 04:21:00 Test Item Value Reference Range Comments TOTAL PROTEIN (BEAKER) (test code = 770) 5.2 gm/dL 6.0-8.3 ALBUMIN (BEAKER) (test code = 1145) 2.3 g/dL 3.5-5.0 BILIRUBIN TOTAL (BEAKER) (test code = 377) 3.9 mg/dL 0.2-1 .2 BILIRUBIN DIRECT (BEAKER) (test code = 706) 3.1 mg/dL 0.1- 0.5 ALKALINE PHOSPHATASE (BEAKER) (test code = 346) 69 U/L 40-150 AST (SGOT) (BEAKER) (test code = 353) 36 U/L 5-34 ALT (SGPT) (BEAKER) (test code = 347) 36 U/L 6-55 Specimen slightly [id number] 04:13:00 Test Item Value Reference Range Comments PARTIAL THROMBOPLASTIN TIME (BEAKER) (test code 72.1 seconds 22.5-36.0 = 760) BLOOD GAS, [id number] 04:13:00 Test Item Value Reference Range Comments PH ARTERIAL (BEAKER) (test code = 383) 7.39 7.35-7.45 PCO2 ARTERIAL (BEAKER) (test code = 384) 48 mmHg 35-45 PO2 ARTERIAL (BEAKER) (test code = 385) 151 mmHg 80-90 O2 SATURATION ARTERIAL (BEAKER) (test code = 386) 98.9 % 96.0-97.0 HCO3 ARTERIAL (BEAKER) (test code = 388) 28 mmol/L 21-29 BASE EXCESS ARTERIAL (BEAKER) (test code = 387) 3.1 mmol/L -2.0-3.0 PATIENT TEMPERATURE (BEAKER) (test code = 1818) 37.0 C FIO2 (BEAKER) (test code = 1819) 100.0 % POCT-GLUCOSE [id number] 00:08:00 Test Item Value Reference Range Comments POC-GLUCOSE METER (BEAKER) 150 mg/dL 70-110 TESTE D AT [address] (test code = 1538) [place] [address] POCT-GLUCOSE [id number] 18:45:00 Test Item Value Reference Range Comments POC-GLUCOSE METER (BEAKER) 162 mg/dL 70-110 TESTE D AT [address] (test code = 1538) [place] [address] POCT-GLUCOSE [id number] 13:14:00 Test Item Value Reference Range Comments POC-GLUCOSE METER (BEAKER) 176 mg/dL 70-110 TESTE D AT [address] (test code = 1538) [place] [address] POCT-GLUCOSE [id number] 10:44:00 Test Item Value Reference Range Comments POC-GLUCOSE METER (BEAKER) 146 mg/dL 70-110 TESTE D AT [address] (test code = 1538) [place] [address] BLOOD GAS, [id number] 10:32:00 Test Item Value Reference Range Comments PH ARTERIAL (BEAKER) (test code = 383) 7.44 7.35-7.45 PCO2 ARTERIAL (BEAKER) (test code = 384) 45 mmHg 35-45 PO2 ARTERIAL (BEAKER) (test code = 385) 145 mmHg 80-90 O2 SATURATION ARTERIAL (BEAKER) (test code = 386) 98.9 % 96.0-97.0 HCO3 ARTERIAL (BEAKER) (test code = 388) 30 mmol/L 21-29 BASE EXCESS ARTERIAL (BEAKER) (test code = 387) 4.6 mmol/L -2.0-3.0 PATIENT TEMPERATURE (BEAKER) (test code = 1818) 36.5 C FIO2 (BEAKER) (test code = 1819) 40.0 % RAD, CHEST, 1 VIEW, NON [id number] 09:14:00Reason for exam:->ptxShould this be performed at the bedside?->YesFINAL REPORT COMPARISON: 01/22/2018 TECHNIQUE: Single view of the chest FINDINGS: Bilateral interstitial and airspace opacities again seen. Small pleural effusions are suspected. No gross new lung parenchymal changes. There is a tiny right apical pneumothorax. Support lines and tubes are stable. IMPRESSION: No significant interval change. Signed: Kyle Rome MDReport Verified Date/Time: 01/23/2018 09:14:48 Reading Location: [facility] Radiology Reading Room Electronically sign ed by: KYLE ROME M.D. on 01/23/2018 09:14 AMBLOOD [id number] 08:09:00 Test Item Value Reference Range Comments CULTURE (BEAKER) From Aerobic William ttle Only (test code = 1095) Lactobacillus species GRAM STAIN RESULT From aerobic bottle (BEAKER) (test code = only: gram positive 1123) rods NOT DETECTEDPanel is negative for Bio[employer] BCID-detectable organisms. Please refer to traditional culture and sensitivity results as they become available.Other organisms and resistance markers not contained in this PCR panel cannot be excluded and follow-up of traditional culture results is required.This sample was tested at the [facility] Clinical Microbiology Laboratory using the [employer] FilmArray Blood Culture ID Panel. This test is FDA cleared for in vitro diagnostic use and has been verified and approved by the [facility] Clinical Microbiology laboratory for clinical use. Reference Range: Not DetectedBLOOD GAS, [id number] 04:45:00 Test Item Value Reference Range Comments PH ARTERIAL (BEAKER) (test code = 383) 7.42 7.35-7.45 PCO2 ARTERIAL (BEAKER) (test code = 384) 46 mmHg 35-45 PO2 ARTERIAL (BEAKER) (test code = 385) 192 mmHg 80-90 O2 SATURATION ARTERIAL (BEAKER) (test code = 386) 99.3 % 96.0-97.0 HCO3 ARTERIAL (BEAKER) (test code = 388) 29 mmol/L 21-29 BASE EXCESS ARTERIAL (BEAKER) (test code = 387) 4.2 mmol/L -2.0-3.0 PATIENT TEMPERATURE (BEAKER) (test code = 1818) 37.0 C FIO2 (BEAKER) (test code = 1819) 40.0 % BASIC METABOLIC [id number] 04:39:00 Test Item Value Reference Range Comments SODIUM (BEAKER) (test 137 meq/L 136-145 code = 381) POTASSIUM (BEAKER) (test 3.8 meq/L 3.5-5.1 code = 379) CHLORIDE (BEAKER) (test 100 meq/L 98-107 code = 382) CO2 (BEAKER) (test code = 26 meq/L 22-29 355) BLOOD UREA NITROGEN 39 mg/dL 7-21 (BEAKER) (test code = 354) CREATININE (BEAKER) (test 3.80 mg/dL 0.57-1.25 code = 358) GLUCOSE RANDOM (BEAKER) 137 mg/dL 70-105 (test code = 652) CALCIUM (BEAKER) (test 8.1 mg/dL 8.4-10.2 code = 697) EGFR (BEAKER) (test code 20 mL/min/1.73 sq m EST IMATED GFR IS NOT = 1092) ACCURATE CREA TININE CLEARANCE IN PRE DICTING GLOMERULAR FILTR ATION RATE. ESTIMATED GFR IS NOT APPLICABLE F OR DIALYSIS PATIENT S. Specimen slightly [id number] 04:35:00 Test Item Value Reference Range Comments MAGNESIUM (BEAKER) (test code = 627) 1.8 mg/dL 1.6-2.6 HEPATIC FUNCTION [id number] 04:35:00 Test Item Value Reference Range Comments TOTAL PROTEIN (BEAKER) (test code = 770) 4.8 gm/dL 6.0-8.3 ALBUMIN (BEAKER) (test code = 1145) 2.3 g/dL 3.5-5.0 BILIRUBIN TOTAL (BEAKER) (test code = 377) 4.2 mg/dL 0.2-1 .2 BILIRUBIN DIRECT (BEAKER) (test code = 706) 3.5 mg/dL 0.1- 0.5 ALKALINE PHOSPHATASE (BEAKER) (test code = 346) 64 U/L 40-150 AST (SGOT) (BEAKER) (test code = 353) 33 U/L 5-34 ALT (SGPT) (BEAKER) (test code = 347) 40 U/L 6-55 Specimen slightly [id number] 04:18:00 Test Item Value Reference Range Comments PARTIAL THROMBOPLASTIN TIME (BEAKER) (test code 68.0 seconds 22.5-36.0 = 760) CBC (HEMOGRAM ONLY)2018-01-23 04:10:00 Test Item Value Reference Range Comments WHITE BLOOD CELL COUNT (BEAKER) (test code = 775) 17.0 K/ L 3.5-10.5 RED BLOOD CELL COUNT (BEAKER) (test code = 761) 2.48 M/ L 4.63-6.08 HEMOGLOBIN (BEAKER) (test code = 410) 7.7 GM/DL 13.7-17.5 HEMATOCRIT (BEAKER) (test code = 411) 23.4 % 40.1-51.0 MEAN CORPUSCULAR VOLUME (BEAKER) (test code = 94.4 fL 79 .0-92.2 753) MEAN CORPUSCULAR HEMOGLOBIN (BEAKER) (test code = 31.0 pg 25.7-32.2 751) MEAN CORPUSCULAR HEMOGLOBIN CONC (BEAKER) (test 32.9 GM/DL 32.3-36.5 code = 752) RED CELL DISTRIBUTION WIDTH (BEAKER) (test code = 20.4 % 11.6-14.4 412) PLATELET COUNT (BEAKER) (test code = 756) 85 K/CU MM 150-45 0 MEAN PLATELET VOLUME (BEAKER) (test code = 754) 10.1 fL 9.4-12.4 NUCLEATED RED BLOOD CELLS (BEAKER) (test code = 0 /100 WBC 0-0 413) POCT-GLUCOSE [id number] 00:52:00 Test Item Value Reference Range Comments POC-GLUCOSE METER (BEAKER) 145 mg/dL 70-110 TESTE D AT [facility] [address] [facility] (test code = 1538) [facility] [address] BLOOD [id number] 00:00:00 Test Item Value Reference Range Comments CULTURE (BEAKER) (test code = 1095) No growth in 5 days POCT-GLUCOSE [id number] 18:17:00 Test Item Value Reference Range Comments POC-GLUCOSE METER (BEAKER) 97 mg/dL 70-110 TESTE D AT [address] (test code = 1538) [place] [address] POCT-GLUCOSE [id number] 13:26:00 Test Item Value Reference Range Comments POC-GLUCOSE METER (BEAKER) 138 mg/dL 70-110 TESTE D AT [address] (test code = 1538) [place] [address] BLOOD GAS, [id number] 10:32:00 Test Item Value Reference Range Comments PH ARTERIAL (BEAKER) (test code = 383) 7.43 7.35-7.45 PCO2 ARTERIAL (BEAKER) (test code = 384) 39 mmHg 35-45 PO2 ARTERIAL (BEAKER) (test code = 385) 145 mmHg 80-90 O2 SATURATION ARTERIAL (BEAKER) (test code = 386) 98.9 % 96.0-97.0 HCO3 ARTERIAL (BEAKER) (test code = 388) 25 mmol/L 21-29 BASE EXCESS ARTERIAL (BEAKER) (test code = 387) 0.7 mmol/L -2.0-3.0 PATIENT TEMPERATURE (BEAKER) (test code = 1818) 37.0 C FIO2 (BEAKER) (test code = 1819) 40.0 % POCT-GLUCOSE [id number] 06:21:00 Test Item Value Reference Range Comments POC-GLUCOSE METER (BEAKER) 138 mg/dL 70-110 TESTE D AT [address] (test code = 1538) [place] [address] BASIC METABOLIC [id number] 04:25:00 Test Item Value Reference Range Comments SODIUM (BEAKER) (test 135 meq/L 136-145 code = 381) POTASSIUM (BEAKER) (test 4.1 meq/L 3.5-5.1 code = 379) CHLORIDE (BEAKER) (test 98 meq/L 98-107 code = 382) CO2 (BEAKER) (test code = 24 meq/L 22-29 355) BLOOD UREA NITROGEN 76 mg/dL 7-21 (BEAKER) (test code = 354) CREATININE (BEAKER) (test 5.57 mg/dL 0.57-1.25 code = 358) GLUCOSE RANDOM (BEAKER) 120 mg/dL 70-105 (test code = 652) CALCIUM (BEAKER) (test 7.8 mg/dL 8.4-10.2 code = 697) EGFR (BEAKER) (test code 13 mL/min/1.73 sq m EST IMATED GFR IS NOT = 1092) ACCURATE CREA TININE CLEARANCE IN PRE DICTING GLOMERULAR FILTR ATION RATE. ESTIMATED GFR IS NOT APPLICABLE F OR DIALYSIS PATIENT S. Specimen slightly [id number] 04:24:00 Test Item Value Reference Range Comments MAGNESIUM (BEAKER) (test code = 627) 2.1 mg/dL 1.6-2.6 HEPATIC FUNCTION [id number] 04:24:00 Test Item Value Reference Range Comments TOTAL PROTEIN (BEAKER) (test code = 770) 4.2 gm/dL 6.0-8.3 ALBUMIN (BEAKER) (test code = 1145) 2.1 g/dL 3.5-5.0 BILIRUBIN TOTAL (BEAKER) (test code = 377) 4.3 mg/dL 0.2-1 .2 BILIRUBIN DIRECT (BEAKER) (test code = 706) 3.7 mg/dL 0.1- 0.5 ALKALINE PHOSPHATASE (BEAKER) (test code = 346) 48 U/L 40-150 AST (SGOT) (BEAKER) (test code = 353) 33 U/L 5-34 ALT (SGPT) (BEAKER) (test code = 347) 42 U/L 6-55 Specimen slightly ictericCBC (HEMOGRAM ONLY)2018-01-22 04:18:00 Test Item Value Reference Range Comments WHITE BLOOD CELL COUNT (BEAKER) (test code = 775) 14.2 K/ L 3.5-10.5 RED BLOOD CELL COUNT (BEAKER) (test code = 761) 2.34 M/ L 4.63-6.08 HEMOGLOBIN (BEAKER) (test code = 410) 7.3 GM/DL 13.7-17.5 HEMATOCRIT (BEAKER) (test code = 411) 21.6 % 40.1-51.0 MEAN CORPUSCULAR VOLUME (BEAKER) (test code = 92.3 fL 79 .0-92.2 753) MEAN CORPUSCULAR HEMOGLOBIN (BEAKER) (test code = 31.2 pg 25.7-32.2 751) MEAN CORPUSCULAR HEMOGLOBIN CONC (BEAKER) (test 33.8 GM/DL 32.3-36.5 code = 752) RED CELL DISTRIBUTION WIDTH (BEAKER) (test code = 20.3 % 11.6-14.4 412) PLATELET COUNT (BEAKER) (test code = 756) 78 K/CU MM 150-45 0 MEAN PLATELET VOLUME (BEAKER) (test code = 754) 11.0 fL 9.4-12.4 NUCLEATED RED BLOOD CELLS (BEAKER) (test code = 0 /100 WBC 0-0 413) [id number] 04:07:00 Test Item Value Reference Range Comments PARTIAL THROMBOPLASTIN TIME (BEAKER) (test code 80.2 seconds 22.5-36.0 = 760) BLOOD GAS, [id number] 04:06:00 Test Item Value Reference Range Comments PH ARTERIAL (BEAKER) (test code = 383) 7.44 7.35-7.45 PCO2 ARTERIAL (BEAKER) (test code = 384) 40 mmHg 35-45 PO2 ARTERIAL (BEAKER) (test code = 385) 128 mmHg 80-90 O2 SATURATION ARTERIAL (BEAKER) (test code = 386) 98.7 % 96.0-97.0 HCO3 ARTERIAL (BEAKER) (test code = 388) 26 mmol/L 21-29 BASE EXCESS ARTERIAL (BEAKER) (test code = 387) 2.0 mmol/L -2.0-3.0 PATIENT TEMPERATURE (BEAKER) (test code = 1818) 37.0 C FIO2 (BEAKER) (test code = 1819) 40.0 % RAD, CHEST, 1 VIEW, NON [id number] 03:32:00Reason for exam:->ptxShould this be performed at the bedside?->YesFINAL REPORT RAD, CHEST, 1 VIEW, NON DEPT INDICATION: ptx COMPARISON: Prior day's exam FINDINGS: Portable frontal view of the chest. IMPRESSION: Support Lines: Stable. Lungs and pleura: Improved inflation of the right lung. Small residual right apical pneumothorax. Congestivechanges/atelectasis and small left effusion is stable. Heart and mediastinum: Stable contours. Stable surgical changes.Additional findings: None. Signed: JR Platt Robert MDReport Verified Date/Time: 01/22/2018 03:32:38 Reading Location: [facility] B1 C013Y CT Body Reading Room POCT-GLUCOSE [id number] 00:43:00 Test Item Value Reference Range Comments POC-GLUCOSE METER (BEAKER) 102 mg/dL 70-110 TESTE D AT [address] (test code = 1538) [place] [address] [id number] 17:31:00 Test Item Value Reference Range Comments PARTIAL THROMBOPLASTIN TIME (BEAKER) (test code 65.0 seconds 22.5-36.0 = 760) POCT-GLUCOSE [id number] 17:24:00 Test Item Value Reference Range Comments POC-GLUCOSE METER (BEAKER) 171 mg/dL 70-110 TESTE D AT [address] (test code = 1538) [place] [address] POCT-GLUCOSE [id number] 13:01:00 Test Item Value Reference Range Comments POC-GLUCOSE METER (BEAKER) 144 mg/dL 70-110 TESTE D AT [address] (test code = 1538) [place] [address] [id number] 11:12:00 Test Item Value Reference Range Comments PARTIAL THROMBOPLASTIN TIME (BEAKER) (test code 67.9 seconds 22.5-36.0 = 760) RAD, CHEST, 1 VIEW, NON [id number] 08:01:00Reason for exam:->ptxShould this be performed at [...] MDReport Verified Date/Time: 01/21/2018 08:01:07 Reading Location: [facility] Radiology Reading Room POCT-GLUCOSE [id number] 06:50:00 Test Item Value Reference Range Comments POC-GLUCOSE METER (BEAKER) 149 mg/dL 70-110 TESTE D AT [facility] [address] (test code = 1538) [place] [address] CBC (HEMOGRAM ONLY)2018-01-21 04:20:00 Test Item Value Reference Range Comments WHITE BLOOD CELL COUNT (BEAKER) (test code = 775) 16.6 K/ L 3.5-10.5 RED BLOOD CELL COUNT (BEAKER) (test code = 761) 2.13 M/ L 4.63-6.08 HEMOGLOBIN (BEAKER) (test code = 410) 6.8 GM/DL 13.7-17.5 HEMATOCRIT (BEAKER) (test code = 411) 20.2 % 40.1-51.0 MEAN CORPUSCULAR VOLUME (BEAKER) (test code = 94.8 fL 79 .0-92.2 753) MEAN CORPUSCULAR HEMOGLOBIN (BEAKER) (test code = 31.9 pg 25.7-32.2 751) MEAN CORPUSCULAR HEMOGLOBIN CONC (BEAKER) (test 33.7 GM/DL 32.3-36.5 code = 752) RED CELL DISTRIBUTION WIDTH (BEAKER) (test code = 19.5 % 11.6-14.4 412) PLATELET COUNT (BEAKER) (test code = 756) 88 K/CU MM 150-45 0 MEAN PLATELET VOLUME (BEAKER) (test code = 754) 10.6 fL 9.4-12.4 NUCLEATED RED BLOOD CELLS (BEAKER) (test code = 0 /100 WBC 0-0 413) [id number] 04:03:00 Test Item Value Reference Range Comments PARTIAL THROMBOPLASTIN TIME (BEAKER) (test code 51.2 seconds 22.5-36.0 = 760) BASIC METABOLIC [id number] 04:01:00 Test Item Value Reference Range Comments SODIUM (BEAKER) (test 137 meq/L 136-145 code = 381) POTASSIUM (BEAKER) (test 3.8 meq/L 3.5-5.1 code = 379) CHLORIDE (BEAKER) (test 99 meq/L 98-107 code = 382) CO2 (BEAKER) (test code = 28 meq/L 22-29 355) BLOOD UREA NITROGEN 50 mg/dL 7-21 (BEAKER) (test code = 354) CREATININE (BEAKER) (test 3.75 mg/dL 0.57-1.25 code = 358) GLUCOSE RANDOM (BEAKER) 90 mg/dL 70-105 (test code = 652) CALCIUM (BEAKER) (test 7.9 mg/dL 8.4-10.2 code = 697) EGFR (BEAKER) (test code 20 mL/min/1.73 sq m EST IMATED GFR IS NOT = 1092) ACCURATE CREA TININE CLEARANCE IN PRE DICTING GLOMERULAR FILTR ATION RATE. ESTIMATED GFR IS NOT APPLICABLE F OR DIALYSIS PATIENT S. Specimen moderately [id number] 03:59:00 Test Item Value Reference Range Comments MAGNESIUM (BEAKER) (test code = 627) 2.0 mg/dL 1.6-2.6 HEPATIC FUNCTION [id number] 03:59:00 Test Item Value Reference Range Comments TOTAL PROTEIN (BEAKER) (test code = 770) 4.5 gm/dL 6.0-8.3 ALBUMIN (BEAKER) (test code = 1145) 2.2 g/dL 3.5-5.0 BILIRUBIN TOTAL (BEAKER) (test code = 377) 6.0 mg/dL 0.2-1 .2 BILIRUBIN DIRECT (BEAKER) (test code = 706) 5.1 mg/dL 0.1- 0.5 ALKALINE PHOSPHATASE (BEAKER) (test code = 346) 48 U/L 40-150 AST (SGOT) (BEAKER) (test code = 353) 32 U/L 5-34 ALT (SGPT) (BEAKER) (test code = 347) 51 U/L 6-55 Specimen moderately ictericVANCOMYCIN LEVEL, [id number] 03:57:00 Test Item Value Reference Range Comments VANCOMYCIN RANDOM (BEAKER) (test code = 523) 18.3 ug/mL Reference Range: No NormalsOXYGEN SATURATION, [id number] 03:32:00 Test Item Value Reference Range Comments O2 SATURATION (MEASURED) (BEAKER) (test code = 1455) 86.3 % BLOOD GAS, [id number] 03:30:00 Test Item Value Reference Range Comments PH ARTERIAL (BEAKER) (test code = 383) 7.50 7.35-7.45 PCO2 ARTERIAL (BEAKER) (test code = 384) 38 mmHg 35-45 PO2 ARTERIAL (BEAKER) (test code = 385) 142 mmHg 80-90 O2 SATURATION ARTERIAL (BEAKER) (test code = 386) 99.0 % 96.0-97.0 HCO3 ARTERIAL (BEAKER) (test code = 388) 29 mmol/L 21-29 BASE EXCESS ARTERIAL (BEAKER) (test code = 387) 5.4 mmol/L -2.0-3.0 PATIENT TEMPERATURE (BEAKER) (test code = 1818) 37.5 C FIO2 (BEAKER) (test code = 1819) 40.0 % POCT-GLUCOSE [id number] 23:43:00 Test Item Value Reference Range Comments POC-GLUCOSE METER (BEAKER) 143 mg/dL 70-110 TESTE D AT [facility] [address] [place] [address] (test code = 1538) [place] [id number] BLOOD [id number] 18:00:00 Test Item Value Reference Range Comments CULTURE (BEAKER) (test code = 1095) No growth in 5 days BLOOD [id number] 18:00:00 Test Item Value Reference Range Comments CULTURE (BEAKER) (test code = 1095) No growth in 5 days POCT-GLUCOSE [id number] 16:32:00 Test Item Value Reference Range Comments POC-GLUCOSE METER (BEAKER) 185 mg/dL 70-110 TESTE D AT [facility] [address] [place] [address] (test code = 1538) [place] [id number] MISCELLANEOUS LAB [id number] 15:04:00 Test Item Value Reference Range Comments SCAN RESULT (test code = 9259169) Result comments: NOT DETECTED Panel is negative for [employer] BCID-detectable organisms. Please refer to traditional culture and sensitivity results as they become available. Other organisms and resistance markers not contained in this PCR panel cannot be excluded and follow-up of traditional culture results is required. This sample was tested at the [facility] Clinical Microbiology Laboratory using the [employer] Blood Culture ID Panel. This test is FDA cleared for in vitro diagnostic use and hasbeen verified and approved by the [facility] Clinical Microbiology laboratory for clinical use. ReferenceRange: Not DetectedPOCT- GLUCOSE [id number] 12:25:00 Test Item Value Reference Range Comments POC-GLUCOSE METER (BEAKER) 116 mg/dL 70-110 TESTE D AT [facility] [address] [place] [address] (test code = 1538) [facility] [phone] RAD, CHEST, 1 VIEW, NON [id number] 06:38:00Reason for exam:->pl effusionShould this be performed at the bedside?->YesFINAL REPORT RAD, CHEST, 1 VIEW, NON DEPT INDICATION: pl effusion COMPARISON:Prior day's exam FINDINGS: Portable frontal view of the chest. IMPRESSION: Support Lines: Stable.Lungs and pleura: Unchanged appearance of the air spaces. No new effusion. No pneumothorax.Heart andmediastinum: Stable contours. Stable surgical changes.Additional findings: None. Signed: JR Platt Robert MDReport Verified Date/Time: 01/20/2018 06:38:33 Reading Location: [facility] C013Y CT Body Reading Room POCT-GLUCOSE [id number] 05:54:00 Test Item Value Reference Range Comments POC-GLUCOSE METER (BEAKER) 231 mg/dL 70-110 TESTE D AT 20 [address] (test code = 1538) [place] [id number] VANCOMYCIN LEVEL, [id number] 04:23:00 Test Item Value Reference Range Comments VANCOMYCIN RANDOM (BEAKER) (test code = 523) 25.8 ug/mL Reference Range: No [id number] 04:17:00 Test Item Value Reference Range Comments MAGNESIUM (BEAKER) (test code = 627) 2.0 mg/dL 1.6-2.6 HEPATIC FUNCTION [id number] 04:17:00 Test Item Value Reference Range Comments TOTAL PROTEIN (BEAKER) (test code = 770) 4.8 gm/dL 6.0-8.3 ALBUMIN (BEAKER) (test code = 1145) 2.3 g/dL 3.5-5.0 BILIRUBIN TOTAL (BEAKER) (test code = 377) 7.1 mg/dL 0.2-1 .2 BILIRUBIN DIRECT (BEAKER) (test code = 706) 6.0 mg/dL 0.1- 0.5 ALKALINE PHOSPHATASE (BEAKER) (test code = 346) 53 U/L 40-150 AST (SGOT) (BEAKER) (test code = 353) 27 U/L 5-34 ALT (SGPT) (BEAKER) (test code = 347) 65 U/L 6-55 Specimen moderately ictericBASIC METABOLIC [id number] 04:17:00 Test Item Value Reference Range Comments SODIUM (BEAKER) (test 130 meq/L 136-145 code = 381) POTASSIUM (BEAKER) (test 4.9 meq/L 3.5-5.1 code = 379) CHLORIDE (BEAKER) (test 94 meq/L 98-107 code = 382) CO2 (BEAKER) (test code = 23 meq/L 22-29 355) BLOOD UREA NITROGEN 76 mg/dL 7-21 (BEAKER) (test code = 354) CREATININE (BEAKER) (test 4.93 mg/dL 0.57-1.25 code = 358) GLUCOSE RANDOM (BEAKER) 203 mg/dL 70-105 (test code = 652) CALCIUM (BEAKER) (test 7.9 mg/dL 8.4-10.2 code = 697) EGFR (BEAKER) (test code 15 mL/min/1.73 sq m EST IMATED GFR IS NOT = 1092) ACCURATE CREA TININE CLEARANCE IN PRE DICTING GLOMERULAR FILTR ATION RATE. ESTIMATED GFR IS NOT APPLICABLE F OR DIALYSIS PATIENT S. Specimen moderately [id number] 04:05:00 Test Item Value Reference Range Comments PARTIAL THROMBOPLASTIN TIME (BEAKER) (test code 69.7 seconds 22.5-36.0 = 760) CBC W/PLT COUNT & AUTO [id number] 03:49:00 Test Item Value Reference Range Comments WHITE BLOOD CELL COUNT (BEAKER) (test code = 775) 16.1 K/ L 3.5-10.5 RED BLOOD CELL COUNT (BEAKER) (test code = 761) 2.30 M/ L 4.63-6.08 HEMOGLOBIN (BEAKER) (test code = 410) 7.4 GM/DL 13.7-17.5 HEMATOCRIT (BEAKER) (test code = 411) 22.2 % 40.1-51.0 MEAN CORPUSCULAR VOLUME (BEAKER) (test code = 96.5 fL 79 .0-92.2 753) MEAN CORPUSCULAR HEMOGLOBIN (BEAKER) (test code = 32.2 pg 25.7-32.2 751) MEAN CORPUSCULAR HEMOGLOBIN CONC (BEAKER) (test 33.3 GM/DL 32.3-36.5 code = 752) RED CELL DISTRIBUTION WIDTH (BEAKER) (test code = 19.2 % 11.6-14.4 412) PLATELET COUNT (BEAKER) (test code = 756) 71 K/CU MM 150-45 0 MEAN PLATELET VOLUME (BEAKER) (test code = 754) 10.8 fL 9.4-12.4 NUCLEATED RED BLOOD CELLS (BEAKER) (test code = 1 /100 WBC 0-0 413) NEUTROPHILS RELATIVE PERCENT (BEAKER) (test code 90 % = 429) LYMPHOCYTES RELATIVE PERCENT (BEAKER) (test code 2 % = 430) MONOCYTES RELATIVE PERCENT (BEAKER) (test code = 5 % 431) EOSINOPHILS RELATIVE PERCENT (BEAKER) (test code 0 % = 432) BASOPHILS RELATIVE PERCENT (BEAKER) (test code = 0 % 437) NEUTROPHILS ABSOLUTE COUNT (BEAKER) (test code = 14.52 K/ L 1.78-5.38 670) LYMPHOCYTES ABSOLUTE COUNT (BEAKER) (test code = 0.33 K/ L 1.32-3.57 414) MONOCYTES ABSOLUTE COUNT (BEAKER) (test code = 0.86 K/ L 0 .30-0.82 415) EOSINOPHILS ABSOLUTE COUNT (BEAKER) (test code = 0.00 K/ L 0.04-0.54 416) BASOPHILS ABSOLUTE COUNT (BEAKER) (test code = 0.01 K/ L 0 .01-0.08 417) IMMATURE GRANULOCYTES-RELATIVE PERCENT (BEAKER) 3 % 0-1 (test code = 2801) OXYGEN SATURATION, [id number] 03:48:00 Test Item Value Reference Range Comments O2 SATURATION (MEASURED) (BEAKER) (test code = 1455) 84.1 % POCT-GLUCOSE [id number] 23:14:00 Test Item Value Reference Range Comments POC-GLUCOSE METER (BEAKER) 248 mg/dL 70-110 TESTE D AT [facility] [address] [facility] (test code = 1538) [place] [address] POCT-GLUCOSE [id number] 18:56:00 Test Item Value Reference Range Comments POC-GLUCOSE METER (BEAKER) 213 mg/dL 70-110 TESTE D AT [facility] [address] [facility] (test code = 1538) [place] [address] POCT-GLUCOSE [id number] 14:06:00 Test Item Value Reference Range Comments POC-GLUCOSE METER (BEAKER) 210 mg/dL 70-110 TESTE D AT [facility] [address] [facility] (test code = 1538) [place] [address] SPUTUM CULTURE + GRAM [id number] 13:45:00 Test Item Value Reference Range Comments CULTURE (BEAKER) (test code 4+ Normal respiratory pete = 1095) present GRAM STAIN RESULT (BEAKER) 4+ WBCs (test code = 1123) GRAM STAIN RESULT (BEAKER) 0-5 epithelial cells (test code = 92189) GRAM STAIN RESULT (BEAKER) 3+ gram negative rods (test code = 41048) GRAM STAIN RESULT (BEAKER) 2+ gram positive cocci in pairs (test code = 067825) and clusters [id number] 12:37:00 Test Item Value Reference Range Comments PARTIAL THROMBOPLASTIN TIME (BEAKER) (test code 74.3 seconds 22.5-36.0 = 760) CBC W/PLT COUNT & AUTO [id number] 10:52:00 Test Item Value Reference Range Comments WHITE BLOOD CELL COUNT (BEAKER) (test code = 775) 17.8 K/ L 3.5-10.5 RED BLOOD CELL COUNT (BEAKER) (test code = 761) 2.54 M/ L 4.63-6.08 HEMOGLOBIN (BEAKER) (test code = 410) 8.0 GM/DL 13.7-17.5 HEMATOCRIT (BEAKER) (test code = 411) 24.6 % 40.1-51.0 MEAN CORPUSCULAR VOLUME (BEAKER) (test code = 96.9 fL 79 .0-92.2 753) MEAN CORPUSCULAR HEMOGLOBIN (BEAKER) (test code = 31.5 pg 25.7-32.2 751) MEAN CORPUSCULAR HEMOGLOBIN CONC (BEAKER) (test 32.5 GM/DL 32.3-36.5 code = 752) RED CELL DISTRIBUTION WIDTH (BEAKER) (test code = 19.5 % 11.6-14.4 412) PLATELET COUNT (BEAKER) (test code = 756) 61 K/CU MM 150-45 0 MEAN PLATELET VOLUME (BEAKER) (test code = 754) 10.8 fL 9.4-12.4 NUCLEATED RED BLOOD CELLS (BEAKER) (test code = 2 /100 WBC 0-0 413) VANCOMYCIN LEVEL, [id number] 05:41:00 Test Item Value Reference Range Comments VANCOMYCIN RANDOM (BEAKER) (test code = 523) 27.9 ug/mL Reference Range: No NormalsBASIC METABOLIC [id number] 05:39:00 Test Item Value Reference Range Comments SODIUM (BEAKER) (test 134 meq/L 136-145 code = 381) POTASSIUM (BEAKER) (test 4.5 meq/L 3.5-5.1 code = 379) CHLORIDE (BEAKER) (test 98 meq/L 98-107 code = 382) CO2 (BEAKER) (test code = 26 meq/L 22-29 355) BLOOD UREA NITROGEN 41 mg/dL 7-21 (BEAKER) (test code = 354) CREATININE (BEAKER) (test 3.08 mg/dL 0.57-1.25 code = 358) GLUCOSE RANDOM (BEAKER) 192 mg/dL 70-105 (test code = 652) CALCIUM (BEAKER) (test 8.0 mg/dL 8.4-10.2 code = 697) EGFR (BEAKER) (test code 25 mL/min/1.73 sq m EST IMATED GFR IS NOT = 1092) ACCURATE CREA TININE CLEARANCE IN PRE DICTING GLOMERULAR FILTR ATION RATE. ESTIMATED GFR IS NOT APPLICABLE F OR DIALYSIS PATIENT S. Specimen moderately [id number] 05:36:00 Test Item Value Reference Range Comments MAGNESIUM (BEAKER) (test code = 627) 2.0 mg/dL 1.6-2.6 [id number] 05:36:00 Test Item Value Reference Range Comments PHOSPHORUS (BEAKER) (test code = 604) 3.9 mg/dL 2.3-4.7 HEPATIC FUNCTION [id number] 05:36:00 Test Item Value Reference Range Comments TOTAL PROTEIN (BEAKER) (test code = 770) 4.8 gm/dL 6.0-8.3 ALBUMIN (BEAKER) (test code = 1145) 2.5 g/dL 3.5-5.0 BILIRUBIN TOTAL (BEAKER) (test code = 377) 7.7 mg/dL 0.2-1 .2 BILIRUBIN DIRECT (BEAKER) (test code = 706) 6.3 mg/dL 0.1- 0.5 ALKALINE PHOSPHATASE (BEAKER) (test code = 346) 57 U/L 40-150 AST (SGOT) (BEAKER) (test code = 353) 43 U/L 5-34 ALT (SGPT) (BEAKER) (test code = 347) 106 U/L 6-55 Specimen moderately ictericOXYGEN SATURATION, [id number] 05:33:00 Test Item Value Reference Range Comments O2 SATURATION (MEASURED) (BEAKER) (test code = 1455) 87.0 % CBC (HEMOGRAM ONLY)2018-01-19 05:25:00 Test Item Value Reference Range Comments WHITE BLOOD CELL COUNT (BEAKER) (test code = 775) 17.8 K/ L 3.5-10.5 RED BLOOD CELL COUNT (BEAKER) (test code = 761) 2.54 M/ L 4.63-6.08 HEMOGLOBIN (BEAKER) (test code = 410) 8.0 GM/DL 13.7-17.5 HEMATOCRIT (BEAKER) (test code = 411) 24.6 % 40.1-51.0 MEAN CORPUSCULAR VOLUME (BEAKER) (test code = 96.9 fL 79 .0-92.2 753) MEAN CORPUSCULAR HEMOGLOBIN (BEAKER) (test code = 31.5 pg 25.7-32.2 751) MEAN CORPUSCULAR HEMOGLOBIN CONC (BEAKER) (test 32.5 GM/DL 32.3-36.5 code = 752) RED CELL DISTRIBUTION WIDTH (BEAKER) (test code = 19.5 % 11.6-14.4 412) PLATELET COUNT (BEAKER) (test code = 756) 61 K/CU MM 150-45 0 MEAN PLATELET VOLUME (BEAKER) (test code = 754) 10.8 fL 9.4-12.4 NUCLEATED RED BLOOD CELLS (BEAKER) (test code = 2 /100 WBC 0-0 413) [id number] 05:24:00 Test Item Value Reference Range Comments PARTIAL THROMBOPLASTIN TIME (BEAKER) (test code 68.1 seconds 22.5-36.0 = 760) RAD, CHEST, 1 VIEW, NON [id number] 04:41:00Reason for exam:->pl effusionShould this be performed at the bedside?->YesFINAL REPORT CLINICAL INDICATION: Support lines. Comparison: 01/18/2018 The ca rdiomediastinal contours are stable. Central pulmonary vascular congestion and bilateral parenchymalopacities are unchanged. There is no pneumothorax. Support lines are stable. Signed: Kellen Parra MDReport Verified Date/Time: 01/19/2018 04:41:27 Reading Location: [address] Reading Room APTT 2018-01-19 00:38:00 Test Item Value Reference Range Comments PARTIAL THROMBOPLASTIN TIME (BEAKER) (test code 45.5 seconds 22.5-36.0 = 760) POCT-GLUCOSE [id number] 00:21:00 Test Item Value Reference Range Comments POC-GLUCOSE METER (BEAKER) 189 mg/dL 70-110 TESTE D AT [address] (test code = 1538) [place] [address] POCT-GLUCOSE [id number] 23:34:00 Test Item Value Reference Range Comments POC-GLUCOSE METER (BEAKER) 162 mg/dL 70-110 TESTE D AT [address] (test code = 1538) [place] [address] POCT-GLUCOSE [id number] 18:09:00 Test Item Value Reference Range Comments POC-GLUCOSE METER (BEAKER) 172 mg/dL 70-110 TESTE D AT [address] (test code = 1538) [place] [address] RAD, ABDOMEN/KUB, 1 VIEW [id number] 17:36:00Reason for exam:->ileusShould this be performed at the bedside?->YesFINAL REPORT Comparison: 01/17/2018 TECHNIQUE: Frontal image of the abdomen FINDINGS: There is a nonspecific bowel gas pattern. Tip of nasogastric projects in the distal stomach. No gross free intraperitoneal air. No acute skeletal abnormality. Signed: Kyle Rome MDReport Verified Date/Time: 01/18/2018 17:36:02 Reading Location: [address] Transitional Reading Room [id number] 17:10:00 Test Item Value Reference Range Comments PARTIAL THROMBOPLASTIN TIME (BEAKER) (test code 27.8 seconds 22.5-36.0 = 760) Prior to initiating heparinPOCT-GLUCOSE [id number] 15:22:00 Test Item Value Reference Range Comments POC-GLUCOSE METER (BEAKER) 126 mg/dL 70-110 TESTE D AT [facility] [address] [facility] (test code = 1538) [facility] [address] [id number] 13:02:00 Test Item Value Reference Range Comments PHOSPHORUS (BEAKER) (test code = 604) 3.8 mg/dL 2.3-4.7 BASIC METABOLIC [id number] 13:02:00 Test Item Value Reference Range Comments SODIUM (BEAKER) (test 134 meq/L 136-145 code = 381) POTASSIUM (BEAKER) (test 4.6 meq/L 3.5-5.1 code = 379) CHLORIDE (BEAKER) (test 100 meq/L 98-107 code = 382) CO2 (BEAKER) (test code = 22 meq/L 22-29 355) BLOOD UREA NITROGEN 29 mg/dL 7-21 (BEAKER) (test code = 354) CREATININE (BEAKER) (test 2.37 mg/dL 0.57-1.25 code = 358) GLUCOSE RANDOM (BEAKER) 142 mg/dL 70-105 (test code = 652) CALCIUM (BEAKER) (test 8.0 mg/dL 8.4-10.2 code = 697) EGFR (BEAKER) (test code 34 mL/min/1.73 sq m EST IMATED GFR IS NOT = 1092) ACCURATE CREA TININE CLEARANCE IN PRE DICTING GLOMERULAR FILTR ATION RATE. ESTIMATED GFR IS NOT APPLICABLE F OR DIALYSIS PATIENT S. Specimen moderately ictericPOCT-GLUCOSE [id number] 12:11:00 Test Item Value Reference Range Comments POC-GLUCOSE METER (BEAKER) 113 mg/dL 70-110 TESTE D AT [facility] [address] [facility] (test code = 1538) [place] [address] CBC W/PLT COUNT & AUTO [id number] 12:03:00 Test Item Value Reference Range Comments WHITE BLOOD CELL COUNT (BEAKER) (test code = 775) 15.4 K/ L 3.5-10.5 RED BLOOD CELL COUNT (BEAKER) (test code = 761) 2.63 M/ L 4.63-6.08 HEMOGLOBIN (BEAKER) (test code = 410) 8.4 GM/DL 13.7-17.5 HEMATOCRIT (BEAKER) (test code = 411) 25.8 % 40.1-51.0 MEAN CORPUSCULAR VOLUME (BEAKER) (test code = 98.1 fL 79 .0-92.2 753) MEAN CORPUSCULAR HEMOGLOBIN (BEAKER) (test code = 31.9 pg 25.7-32.2 751) MEAN CORPUSCULAR HEMOGLOBIN CONC (BEAKER) (test 32.6 GM/DL 32.3-36.5 code = 752) RED CELL DISTRIBUTION WIDTH (BEAKER) (test code = 19.5 % 11.6-14.4 412) PLATELET COUNT (BEAKER) (test code = 756) 65 K/CU MM 150-45 0 MEAN PLATELET VOLUME (BEAKER) (test code = 754) 10.9 fL 9.4-12.4 NUCLEATED RED BLOOD CELLS (BEAKER) (test code = 7 /100 WBC 0-0 413) RAD, CHEST, 1 VIEW, NON [id number] 09:44:00Reason for exam:->pl effusionShould this be performed at the bedside?->YesFINAL REPORT TECHNIQUE: Single view of the chest. COMPARISON: 01/17/2018 FINDINGS: Bilateral patchy interstitial and airspace opacities are stable. There are no large pleural effusions. No gross pneumothorax.No gross new lung parenchymal changes. A previous catheter in the rightneck has been removed. Remaining lines and tubes are stable. Signed: Kyle Rome MDReport Verified Date/Time: 01/18/2018 09:44:26 Reading Location: [address] Reading Room SPUTUM CULTURE + GRAM [id number] 08:09:00 Test Item Value Reference Range Comments CULTURE (BEAKER) (test code 3+ Normal respiratory pete = 1095) present GRAM STAIN RESULT (BEAKER) 4+ WBCs (test code = 1123) GRAM STAIN RESULT (BEAKER) 0-5 epithelial cells (test code = 97009) GRAM STAIN RESULT (BEAKER) No organisms seen (test code = 94762) POCT-GLUCOSE [id number] 07:52:00 Test Item Value Reference Range Comments POC-GLUCOSE METER (BEAKER) 146 mg/dL 70-110 TESTE D AT [address] (test code = 1538) [place] [address] POCT-GLUCOSE [id number] 06:30:00 Test Item Value Reference Range Comments POC-GLUCOSE METER (BEAKER) 135 mg/dL 70-110 TESTE D AT [address] (test code = 1538) [place] [address] POCT-GLUCOSE [id number] 06:30:00 Test Item Value Reference Range Comments POC-GLUCOSE METER (BEAKER) 130 mg/dL 70-110 TESTE D AT [address] (test code = 1538) [place] [address] [id number] 03:56:00 Test Item Value Reference Range Comments PHOSPHORUS (BEAKER) (test code = 604) 3.1 mg/dL 2.3-4.7 [id number] 03:56:00 Test Item Value Reference Range Comments MAGNESIUM (BEAKER) (test code = 627) 2.0 mg/dL 1.6-2.6 HEPATIC FUNCTION [id number] 03:56:00 Test Item Value Reference Range Comments TOTAL PROTEIN (BEAKER) (test code = 770) 4.8 gm/dL 6.0-8.3 ALBUMIN (BEAKER) (test code = 1145) 2.5 g/dL 3.5-5.0 BILIRUBIN TOTAL (BEAKER) (test code = 377) 8.5 mg/dL 0.2-1 .2 BILIRUBIN DIRECT (BEAKER) (test code = 706) 7.1 mg/dL 0.1- 0.5 ALKALINE PHOSPHATASE (BEAKER) (test code = 346) 57 U/L 40-150 AST (SGOT) (BEAKER) (test code = 353) 45 U/L 5-34 ALT (SGPT) (BEAKER) (test code = 347) 155 U/L 6-55 Specimen moderately ictericVANCOMYCIN LEVEL, [id number] 03:53:00 Test Item Value Reference Range Comments VANCOMYCIN RANDOM (BEAKER) (test code = 523) 18.0 ug/mL Reference Range: No [id number] 03:48:00 Test Item Value Reference Range Comments CALCIUM (BEAKER) (test code = 697) 8.1 mg/dL 8.4-10.2 CALCIUM, [id number] 03:34:00 Test Item Value Reference Range Comments CALCIUM IONIZED (BEAKER) (test code = 698) 1.06 mmol/L 1.12- 1.27 PH, BLOOD (BEAKER) (test code = 1810) 7.38 OXYGEN SATURATION, [id number] 03:33:00 Test Item Value Reference Range Comments O2 SATURATION (MEASURED) (BEAKER) (test code = 1455) 85.8 % POCT-GLUCOSE [id number] 03:26:00 Test Item Value Reference Range Comments POC-GLUCOSE METER (BEAKER) 144 mg/dL 70-110 TESTE D AT [facility] [address] [facility] (test code = 1538) [place] [address] POCT-GLUCOSE [id number] 03:26:00 Test Item Value Reference Range Comments POC-GLUCOSE METER (BEAKER) 163 mg/dL 70-110 TESTE D AT [facility] [address] [facility] (test code = 1538) [place] [address] POCT-GLUCOSE [id number] 01:04:00 Test Item Value Reference Range Comments POC-GLUCOSE METER (BEAKER) 159 mg/dL 70-110 TESTE D AT [facility] [address] [facility] (test code = 1538) [facility] [address] POCT-GLUCOSE [id number] 00:12:00 Test Item Value Reference Range Comments POC-GLUCOSE METER (BEAKER) 132 mg/dL 70-110 TESTE D AT [facility] [address] [facility] (test code = 1538) [facility] [address] LACTIC ACID, ARTERIAL, WHOLE [id number] 23:54:00 Test Item Value Reference Range Comments LACTATE BLOOD ARTERIAL (2) (BEAKER) (test code = 0.7 mmol/L 0.5-2.2 2874) Effective 01/04/2016: Units/Reference Range ChangeNew: 0.5-2.2 mmol/L Previous: 5-20 mg/dLSpecimen moderately ictericPOTASSIUM-STAT [id number] 23:30:00 Test Item Value Reference Range Comments POTASSIUM (BEAKER) (test code = 379) 4.0 meq/L 3.6-5.5 BLOOD GAS, [id number] 23:30:00 Test Item Value Reference Range Comments PH ARTERIAL (BEAKER) (test code = 383) 7.45 7.35-7.45 PCO2 ARTERIAL (BEAKER) (test code = 384) 42 mmHg 35-45 PO2 ARTERIAL (BEAKER) (test code = 385) 95 mmHg 80-90 O2 SATURATION ARTERIAL (BEAKER) (test code = 386) 97.5 % 96.0-97.0 HCO3 ARTERIAL (BEAKER) (test code = 388) 29 mmol/L 21-29 BASE EXCESS ARTERIAL (BEAKER) (test code = 387) 4.3 mmol/L -2.0-3.0 PATIENT TEMPERATURE (BEAKER) (test code = 1818) 37.1 C FIO2 (BEAKER) (test code = 1819) 50.0 % SODIUM NA-STAT [id number] 23:30:00 Test Item Value Reference Range Comments SODIUM (BEAKER) (test code = 381) 134 meq/L 135-148 GLUCOSE-STAT [id number] 23:30:00 Test Item Value Reference Range Comments GLUCOSE RANDOM (BEAKER) (test code = 652) 138 mg/dL 70-110 HGB/HCT (H&H) - STAT [id number] 23:30:00 Test Item Value Reference Range Comments HEMOGLOBIN (BEAKER) (test code = 410) 9.0 g/dL 13.0-16.8 HEMATOCRIT (BEAKER) (test code = 411) 26.0 % 40.0-50.0 CALCIUM, [id number] 23:30:00 Test Item Value Reference Range Comments CALCIUM IONIZED (BEAKER) (test code = 698) 1.04 mmol/L 1.12- 1.27 PH, BLOOD (BEAKER) (test code = 1810) 7.48 OXYGEN SATURATION, [id number] 23:28:00 Test Item Value Reference Range Comments O2 SATURATION (MEASURED) (BEAKER) (test code = 1455) 82.0 % POCT-GLUCOSE [id number] 21:35:00 Test Item Value Reference Range Comments POC-GLUCOSE METER (BEAKER) 99 mg/dL 70-110 TESTE D AT [facility] [address] [facility] (test code = 1538) [facility] [address] POCT-GLUCOSE [id number] 21:35:00 Test Item Value Reference Range Comments POC-GLUCOSE METER (BEAKER) 111 mg/dL 70-110 TESTE D AT [address] (test code = 1538) [facility] [address] RAD, CHEST, 1 VIEW, NON [id number] 17:08:00Reason for exam:->LIJ placment CVCShould this be performed at the bedside?->YesFINAL REPORT TECHNIQUE: Frontal chest radiograph dated 01/17/2018. CLINICAL HISTORY: LIJ placement COMPARISON STUDY: Chest radiograph performed earlier the same day IMPRESSION:There has been interval placement of a left-sided central vascular line with the tip projects over the superior vena cava. Left-sided chest tube and mediastinal drain have been removed. Remaining life support tubes and lines are unchanged. Vague airspace opacities in a perihilar distribution are suggestive of pulmonary edema. No pleural effusion or pneumothorax. Cardiomediastinal silhouette is stable inappearance. Midline sternotomy wires are intact and well aligned. No fracture. Signed: Alonso Vail Verified Date/Time: 01/17/2018 17:08:24 Reading Location: [facility] [address] Radiology Reading Room GLUCOSE-STAT [id number] 16:33:00 Test Item Value Reference Range Comments GLUCOSE RANDOM (BEAKER) (test code = 652) 147 mg/dL 70-110 POTASSIUM-STAT [id number] 16:32:00 Test Item Value Reference Range Comments POTASSIUM (BEAKER) (test code = 379) 4.7 meq/L 3.6-5.5 [id number] 15:03:00 Test Item Value Reference Range Comments PROCALCITONIN (BEAKER) (test code = 3036) 5.33 ng/mL <0.05 SEPSIS RISK (ng/mL)Low: 0.05-0.50Intermediate: 0.51-2.00High: >=2.01CT BRAIN WITHOUT IV CONTRAST - [id number] 13:50:00Reason for exam:->altered mental statusFINAL REPORT CT [...] available FINDINGS:There is no parenchymal hematoma, extra-axial collection, or mass effect. There is nonspecific white [...] MDReport Verified Date/Time: 01/17/2018 13:50:42 [facility] CALCIUM, [id number] 12:36:00 Test Item Value Reference Range Comments CALCIUM IONIZED (BEAKER) (test code = 698) 1.09 mmol/L 1.12- 1.27 PH, BLOOD (BEAKER) (test code = 1810) 7.36 GLUCOSE-STAT [id number] 12:36:00 Test Item Value Reference Range Comments GLUCOSE RANDOM (BEAKER) (test code = 652) 147 mg/dL 70-110 POTASSIUM-STAT [id number] 12:36:00 Test Item Value Reference Range Comments POTASSIUM (BEAKER) (test code = 379) 4.7 meq/L 3.6-5.5 RAD, ABDOMEN/KUB, 1 VIEW [id number] 08:42:00Reason for exam:->ileusShould this be performed at [...] MDReport Verified Date/Time: 01/17/2018 08:42:09 Reading Location: [facility] Radiology Reading Room CBC W/PLT COUNT & AUTO [id number] 08:18:00 Test Item Value Reference Range Comments WHITE BLOOD CELL COUNT (BEAKER) (test code = 775) 22.5 K/ L 3.5-10.5 RED BLOOD CELL COUNT (BEAKER) (test code = 761) 2.87 M/ L 4.63-6.08 HEMOGLOBIN (BEAKER) (test code = 410) 9.0 GM/DL 13.7-17.5 HEMATOCRIT (BEAKER) (test code = 411) 27.4 % 40.1-51.0 MEAN CORPUSCULAR VOLUME (BEAKER) (test code = 95.5 fL 79 .0-92.2 753) MEAN CORPUSCULAR HEMOGLOBIN (BEAKER) (test code = 31.4 pg 25.7-32.2 751) MEAN CORPUSCULAR HEMOGLOBIN CONC (BEAKER) (test 32.8 GM/DL 32.3-36.5 code = 752) RED CELL DISTRIBUTION WIDTH (BEAKER) (test code = 18.8 % 11.6-14.4 412) PLATELET COUNT (BEAKER) (test code = 756) 63 K/CU MM 150-45 0 MEAN PLATELET VOLUME (BEAKER) (test code = 754) 11.1 fL 9.4-12.4 NUCLEATED RED BLOOD CELLS (BEAKER) (test code = 6 /100 WBC 0-0 413) HEPARIN ASSAY - [id number] 08:07:00 Test Item Value Reference Range Comments UNFRACTIONATED HEPARIN-ANTI 10A (BEAKER) (test code = < u/ml 0.30-0.70 1606) Recommendations for Monitoring Unfractionated Heparin Therapeutic Range: 0.3- 0.7 u/mL with continuous IV infusionPOCT-GLUCOSE [id number] 06:09:00 Test Item Value Reference Range Comments POC-GLUCOSE METER (BEAKER) 143 mg/dL 70-110 TESTE D AT [facility] [address] [facility] (test code = 1538) [facility] 77 030 RAD, CHEST, 1 VIEW, NON [id number] 04:43:00Reason for exam:->acute respiratory insufficiencyShould this be [...] MDReport Verified Date/Time: 01/17/2018 04:43:34 Reading Location: [facility] [id number] Body Reading Room OXYGEN SATURATION, [id number] 04:13:00 Test Item Value Reference Range Comments O2 SATURATION (MEASURED) (BEAKER) (test code = 1455) 85.7 % [id number] 04:06:00 Test Item Value Reference Range Comments PHOSPHORUS (BEAKER) (test code = 604) 3.1 mg/dL 2.3-4.7 [id number] 04:06:00 Test Item Value Reference Range Comments MAGNESIUM (BEAKER) (test code = 627) 2.1 mg/dL 1.6-2.6 COMPREHENSIVE METABOLIC [id number] 04:06:00 Test Item Value Reference Range Comments TOTAL PROTEIN (BEAKER) 5.2 gm/dL 6.0-8.3 (test code = 770) ALBUMIN (BEAKER) (test 2.8 g/dL 3.5-5.0 code = 1145) ALKALINE PHOSPHATASE 60 U/L 40-150 (BEAKER) (test code = 346) BILIRUBIN TOTAL (BEAKER) 9.1 mg/dL 0.2-1.2 (test code = 377) SODIUM (BEAKER) (test code 135 meq/L 136-145 = 381) POTASSIUM (BEAKER) (test 4.7 meq/L 3.5-5.1 code = 379) CHLORIDE (BEAKER) (test 102 meq/L 98-107 code = 382) CO2 (BEAKER) (test code = 24 meq/L 22-29 355) BLOOD UREA NITROGEN 22 mg/dL 7-21 (BEAKER) (test code = 354) CREATININE (BEAKER) (test 1.47 mg/dL 0.57-1.25 code = 358) GLUCOSE RANDOM (BEAKER) 144 mg/dL 70-105 (test code = 652) CALCIUM (BEAKER) (test 8.5 mg/dL 8.4-10.2 code = 697) AST (SGOT) (BEAKER) (test 64 U/L 5-34 code = 353) ALT (SGPT) (BEAKER) (test 250 U/L 6-55 code = 347) EGFR (BEAKER) (test code = 59 mL/min/1.73 sq m E STIMATED GFR IS NOT 1092) ACCURATE CREA TININE CLEARANCE IN PRE DICTING GLOMERULAR FILTR ATION RATE. ESTIMATED GFR IS NOT APPLICABLE F OR DIALYSIS PATIENT S. Specimen moderately ictericHEPATIC FUNCTION [id number] 04:06:00 Test Item Value Reference Range Comments TOTAL PROTEIN (BEAKER) (test code = 770) 5.2 gm/dL 6.0-8.3 ALBUMIN (BEAKER) (test code = 1145) 2.8 g/dL 3.5-5.0 BILIRUBIN TOTAL (BEAKER) (test code = 377) 9.1 mg/dL 0.2-1 .2 BILIRUBIN DIRECT (BEAKER) (test code = 706) 7.4 mg/dL 0.1- 0.5 ALKALINE PHOSPHATASE (BEAKER) (test code = 346) 60 U/L 40-150 AST (SGOT) (BEAKER) (test code = 353) 64 U/L 5-34 ALT (SGPT) (BEAKER) (test code = 347) 250 U/L 6-55 Specimen moderately ictericLACTIC ACID, ARTERIAL, WHOLE [id number] 03:59:00 Test Item Value Reference Range Comments LACTATE BLOOD ARTERIAL (2) 0.5 mmol/L 0.5-2.2 Speci men slightly hemolyzed (BEAKER) (test code = 2874) Effective 01/04/2016: Units/Reference Range ChangeNew: 0.5-2.2 mmol/L Previous: 5-20 mg/dLSpecimen moderately ictericBLOOD GAS, [id number] 03:58:00 Test Item Value Reference Range Comments PH ARTERIAL (BEAKER) (test code = 383) 7.42 7.35-7.45 PCO2 ARTERIAL (BEAKER) (test code = 384) 40 mmHg 35-45 PO2 ARTERIAL (BEAKER) (test code = 385) 131 mmHg 80-90 O2 SATURATION ARTERIAL (BEAKER) (test code = 386) 98.8 % 96.0-97.0 HCO3 ARTERIAL (BEAKER) (test code = 388) 26 mmol/L 21-29 BASE EXCESS ARTERIAL (BEAKER) (test code = 387) 0.8 mmol/L -2.0-3.0 PATIENT TEMPERATURE (BEAKER) (test code = 1818) 35.6 C FIO2 (BEAKER) (test code = 1819) 40.0 % CALCIUM, [id number] 03:58:00 Test Item Value Reference Range Comments CALCIUM IONIZED (BEAKER) (test code = 698) 1.14 mmol/L 1.12- 1.27 PH, BLOOD (BEAKER) (test code = 1810) 7.41 POCT-GLUCOSE [id number] 02:41:00 Test Item Value Reference Range Comments POC-GLUCOSE METER (BEAKER) 144 mg/dL 70-110 TESTE D AT [address] (test code = 1538) [place] [address] POCT-GLUCOSE [id number] 00:30:00 Test Item Value Reference Range Comments POC-GLUCOSE METER (BEAKER) 171 mg/dL 70-110 TESTE D AT [address] (test code = 1538) [place] [address] POTASSIUM-STAT [id number] 00:08:00 Test Item Value Reference Range Comments POTASSIUM (BEAKER) (test code = 379) 4.5 meq/L 3.6-5.5 POCT-GLUCOSE [id number] 23:30:00 Test Item Value Reference Range Comments POC-GLUCOSE METER (BEAKER) 159 mg/dL 70-110 TESTE D AT [address] (test code = 1538) [place] [address] POCT-GLUCOSE [id number] 21:08:00 Test Item Value Reference Range Comments POC-GLUCOSE METER (BEAKER) 194 mg/dL 70-110 TESTE D AT [address] (test code = 1538) [place] [address] POCT-GLUCOSE [id number] 21:08:00 Test Item Value Reference Range Comments POC-GLUCOSE METER (BEAKER) 230 mg/dL 70-110 TESTE D AT [address] (test code = 1538) [place] [address] CALCIUM, [id number] 19:23:00 Test Item Value Reference Range Comments CALCIUM IONIZED (BEAKER) (test code = 698) 1.14 mmol/L 1.12- 1.27 PH, BLOOD (BEAKER) (test code = 1810) 7.36 POTASSIUM-STAT [id number] 19:23:00 Test Item Value Reference Range Comments POTASSIUM (BEAKER) (test code = 379) 5.1 meq/L 3.6-5.5 [id number] 17:27:00 Test Item Value Reference Range Comments PHOSPHORUS (BEAKER) (test code = 604) 2.2 mg/dL 2.3-4.7 [id number] 17:27:00 Test Item Value Reference Range Comments MAGNESIUM (BEAKER) (test code = 627) 2.1 mg/dL 1.6-2.6 PH, [id number] 17:03:00 Test Item Value Reference Range Comments PH ARTERIAL (BEAKER) (test code = 383) 7.39 7.35-7.45 POCT-GLUCOSE [id number] 16:43:00 Test Item Value Reference Range Comments POC-GLUCOSE METER (BEAKER) 95 mg/dL 70-110 TESTE D AT [address] (test code = 1538) [place] [address] POCT-GLUCOSE [id number] 14:41:00 Test Item Value Reference Range Comments POC-GLUCOSE METER (BEAKER) 134 mg/dL 70-110 TESTE D AT [address] (test code = 1538) [place] [address] RAD, ABDOMEN/KUB, 1 VIEW [id number] 13:16:00Reason for exam:- >constipationShould this be performed at the bedside?->YesFINAL REPORT [...] abnormality. Signed: Kay Walter MDReport Verified Date/Time: 01/16/2018 13:16:27 Reading Location: [facility] Reading Room Electronically signed by: KAY WALTER on01/16/2018 01:16 PMCALCIUM, [id number] 12:38:00 Test Item Value Reference Range Comments CALCIUM IONIZED (BEAKER) (test code = 698) 1.14 mmol/L 1.12- 1.27 PH, BLOOD (BEAKER) (test code = 1810) 7.40 POCT-GLUCOSE [id number] 12:29:00 Test Item Value Reference Range Comments POC-GLUCOSE METER (BEAKER) 127 mg/dL 70-110 TESTE D AT [address] (test code = 1538) [place] [address] POCT-GLUCOSE [id number] 10:34:00 Test Item Value Reference Range Comments POC-GLUCOSE METER (BEAKER) 130 mg/dL 70-110 TESTE D AT [address] (test code = 1538) [place] [address] POCT-GLUCOSE [id number] 09:10:00 Test Item Value Reference Range Comments POC-GLUCOSE METER (BEAKER) 151 mg/dL 70-110 TESTE D AT [address] (test code = 1538) [place] [address] HEPARIN ASSAY - [id number] 09:00:00 Test Item Value Reference Range Comments UNFRACTIONATED HEPARIN-ANTI 10A (BEAKER) (test code = < u/ml 0.30-0.70 1606) Recommendations for Monitoring Unfractionated Heparin Therapeutic Range: 0.3- 0.7 u/mL with continuous IV infusionCB W/PLT COUNT & AUTO DIFFERENTIAL 2018-01-16 08:55:00 Test Item Value Reference Range Comments WHITE BLOOD CELL COUNT (BEAKER) (test code = 775) 11.9 K/ L 3.5-10.5 RED BLOOD CELL COUNT (BEAKER) (test code = 761) 2.64 M/ L 4.63-6.08 HEMOGLOBIN (BEAKER) (test code = 410) 8.4 GM/DL 13.7-17.5 HEMATOCRIT (BEAKER) (test code = 411) 25.2 % 40.1-51.0 MEAN CORPUSCULAR VOLUME (BEAKER) (test code = 95.5 fL 79 .0-92.2 753) MEAN CORPUSCULAR HEMOGLOBIN (BEAKER) (test code = 31.8 pg 25.7-32.2 751) MEAN CORPUSCULAR HEMOGLOBIN CONC (BEAKER) (test 33.3 GM/DL 32.3-36.5 code = 752) RED CELL DISTRIBUTION WIDTH (BEAKER) (test code = 18.5 % 11.6-14.4 412) PLATELET COUNT (BEAKER) (test code = 756) 45 K/CU MM 150-45 0 MEAN PLATELET VOLUME (BEAKER) (test code = 754) 11.2 fL 9.4-12.4 NUCLEATED RED BLOOD CELLS (BEAKER) (test code = 9 /100 WBC 0-0 413) OXYGEN SATURATION, [id number] 08:30:00 Test Item Value Reference Range Comments O2 SATURATION (MEASURED) (BEAKER) (test code = 1455) 87.1 % RAD, CHEST, 1 VIEW, NON [id number] 08:11:00Reason for exam:->acute respiratory insufficiencyShould this be performed at the bedside?->YesFINAL REPORT CLINICAL HISTORY: acute respiratory insufficiency TECHNIQUE: 1 view of the chest. COMPARISON: 01/15/2018 IMPRESSION: The Aurora-Moni catheter has been removed. The supporting lines and tubes are otherwise unchanged. There is no pneumothorax. Mild bilateral perihilar lung opacities have decreased. The cardiomediastinal silhouette is magnified by technique with sternotomy wires. Signed: Lorna Slade MDReport Verified Date/Time: 01/16/2018 08:11:02 Reading Location: [facility] Radiology Reading Room POCT- GLUCOSE [id number] 06:43:00 Test Item Value Reference Range Comments POC-GLUCOSE METER (GAELAKER) 107 mg/dL 70-110 TESTE D AT [facility] [address] [facility] (test code = 1538) [facility] [address] U/S, ABDOMINAL, [id number] 05:25:00Abdomen limited area? Add comment if clarification [...] Unremarkable right upper quadrant ultrasound. Signed: JR Platt Robert MDReport Verified Date/Time: 01/16/2018 05:25:06 Reading Location: [facility] C013Y CT Body Reading Room IC ACID, ARTERIAL, WHOLE [id number] 04:06:00 Test Item Value Reference Range Comments LACTATE BLOOD ARTERIAL (2) (BEAKER) (test code = 0.6 mmol/L 0.5-2.2 2874) Effective 01/04/2016: Units/Reference Range ChangeNew: 0.5-2.2 mmol/L Previous: 5-20 mg/dLSpecimen moderately [id number] 04:00:00 Test Item Value Reference Range Comments PHOSPHORUS (BEAKER) (test code = 604) 2.2 mg/dL 2.3-4.7 [id number] 04:00:00 Test Item Value Reference Range Comments MAGNESIUM (BEAKER) (test code = 627) 2.0 mg/dL 1.6-2.6 [id number] 04:00:00 Test Item Value Reference Range Comments CALCIUM (BEAKER) (test code = 697) 8.5 mg/dL 8.4-10.2 COMPREHENSIVE METABOLIC [id number] 04:00:00 Test Item Value Reference Range Comments TOTAL PROTEIN (BEAKER) 5.0 gm/dL 6.0-8.3 (test code = 770) ALBUMIN (BEAKER) (test 2.7 g/dL 3.5-5.0 code = 1145) ALKALINE PHOSPHATASE 45 U/L 40-150 (BEAKER) (test code = 346) BILIRUBIN TOTAL (BEAKER) 7.3 mg/dL 0.2-1.2 (test code = 377) SODIUM (BEAKER) (test code 136 meq/L 136-145 = 381) POTASSIUM (BEAKER) (test 4.3 meq/L 3.5-5.1 code = 379) CHLORIDE (BEAKER) (test 105 meq/L 98-107 code = 382) CO2 (BEAKER) (test code = 25 meq/L 22-29 355) BLOOD UREA NITROGEN 24 mg/dL 7-21 (BEAKER) (test code = 354) CREATININE (BEAKER) (test 1.44 mg/dL 0.57-1.25 code = 358) GLUCOSE RANDOM (BEAKER) 102 mg/dL 70-105 (test code = 652) CALCIUM (BEAKER) (test 8.5 mg/dL 8.4-10.2 code = 697) AST (SGOT) (BEAKER) (test 107 U/L 5-34 code = 353) ALT (SGPT) (BEAKER) (test 351 U/L 6-55 code = 347) EGFR (BEAKER) (test code = 61 mL/min/1.73 sq m E STIMATED GFR IS NOT 1092) ACCURATE CREA TININE CLEARANCE IN PRE DICTING GLOMERULAR FILTR ATION RATE. ESTIMATED GFR IS NOT APPLICABLE F OR DIALYSIS PATIENT S. Specimen moderately ictericHEPATIC FUNCTION [id number] 04:00:00 Test Item Value Reference Range Comments TOTAL PROTEIN (BEAKER) (test code = 770) 5.0 gm/dL 6.0-8.3 ALBUMIN (BEAKER) (test code = 1145) 2.7 g/dL 3.5-5.0 BILIRUBIN TOTAL (BEAKER) (test code = 377) 7.3 mg/dL 0.2-1 .2 BILIRUBIN DIRECT (BEAKER) (test code = 706) 6.0 mg/dL 0.1- 0.5 ALKALINE PHOSPHATASE (BEAKER) (test code = 346) 45 U/L 40-150 AST (SGOT) (BEAKER) (test code = 353) 107 U/L 5-34 ALT (SGPT) (BEAKER) (test code = 347) 351 U/L 6-55 Specimen moderately ictericBLOOD GAS, [id number] 03:51:00 Test Item Value Reference Range Comments PH ARTERIAL (BEAKER) (test code = 383) 7.43 7.35-7.45 PCO2 ARTERIAL (BEAKER) (test code = 384) 41 mmHg 35-45 PO2 ARTERIAL (BEAKER) (test code = 385) 158 mmHg 80-90 O2 SATURATION ARTERIAL (BEAKER) (test code = 386) 99.1 % 96.0-97.0 HCO3 ARTERIAL (BEAKER) (test code = 388) 27 mmol/L 21-29 BASE EXCESS ARTERIAL (BEAKER) (test code = 387) 2.1 mmol/L -2.0-3.0 PATIENT TEMPERATURE (BEAKER) (test code = 1818) 36.1 C FIO2 (BEAKER) (test code = 1819) 60.0 % PROTHROMBIN [id number] 03:51:00 Test Item Value Reference Range Comments PROTIME (BEAKER) (test code = 759) 15.2 seconds 11.7-14.7 INR (BEAKER) (test code = 370) 1.2 <=5.9 RECOMMENDED COUMADIN/WARFARIN INR THERAPY RANGESSTANDARD DOSE: 2.0 - 3.0 Includes: PROPHYLAXIS forvenous thrombosis, systemic embolization; TREATMENT for venous thrombosis and/or pulmonary embolus.HIGH RISK: Target INR is 2.5-3.5 for patients with mechanical heart valves.CALCIUM, [id number] 03:51:00 Test Item Value Reference Range Comments CALCIUM IONIZED (BEAKER) (test code = 698) 1.17 mmol/L 1.12- 1.27 PH, BLOOD (BEAKER) (test code = 1810) 7.42 POCT-GLUCOSE [id number] 02:08:00 Test Item Value Reference Range Comments POC-GLUCOSE METER (BEAKER) 110 mg/dL 70-110 TESTE D AT [address] (test code = 1538) [place] [address] POCT-GLUCOSE [id number] 01:14:00 Test Item Value Reference Range Comments POC-GLUCOSE METER (BEAKER) 107 mg/dL 70-110 TESTE D AT [address] (test code = 1538) [place] [address] POCT-GLUCOSE [id number] 00:29:00 Test Item Value Reference Range Comments POC-GLUCOSE METER (BEAKER) 129 mg/dL 70-110 TESTE D AT [address] (test code = 1538) [place] [address] POCT-GLUCOSE [id number] 23:07:00 Test Item Value Reference Range Comments POC-GLUCOSE METER (BEAKER) 152 mg/dL 70-110 TESTE D AT [address] (test code = 1538) [place] [address] POCT-GLUCOSE [id number] 22:09:00 Test Item Value Reference Range Comments POC-GLUCOSE METER (BEAKER) 171 mg/dL 70-110 TESTE D AT [address] (test code = 1538) [place] [address] POCT-GLUCOSE [id number] 21:13:00 Test Item Value Reference Range Comments POC-GLUCOSE METER (BEAKER) 171 mg/dL 70-110 TESTE D AT [address] (test code = 1538) [place] [address] CALCIUM, [id number] 20:50:00 Test Item Value Reference Range Comments CALCIUM IONIZED (BEAKER) (test code = 698) 1.15 mmol/L 1.12- 1.27 PH, BLOOD (BEAKER) (test code = 1810) 7.34 POCT-GLUCOSE [id number] 20:21:00 Test Item Value Reference Range Comments POC-GLUCOSE METER (BEAKER) 206 mg/dL 70-110 TESTE D AT [address] (test code = 1538) [place] [address] POCT-GLUCOSE [id number] 19:16:00 Test Item Value Reference Range Comments POC-GLUCOSE METER (BEAKER) 197 mg/dL 70-110 TESTE D AT [address] (test code = 1538) [place] [address] [id number] 17:15:00 Test Item Value Reference Range Comments PHOSPHORUS (BEAKER) (test code = 604) 4.1 mg/dL 2.3-4.7 [id number] 17:15:00 Test Item Value Reference Range Comments MAGNESIUM (BEAKER) (test code = 627) 1.9 mg/dL 1.6-2.6 EEG AWAKE AND [id number] 14:56:00For STAT EEG- after 5 PM weekdays, weekends and holidays, page the on-call EEG TechReason for exam:->AMSShould this be performed at the bedside?->YesDate(s) of EE01/15/2018DATE OF REPORT: 01/15/2018ACC: [id number] Number: [id number] Location: Inpatient ICUStart time: 13:18Stop time: 13:40ICD-10: R41.82CPT Code: 14110 HISTORY: 62 y/o man with hxof AFib, ESRD on HD, HIV, DMII, respiratory insufficiency, cardiogenic shock now intubated and sedated with altered mental status MEDICATIONS THAT COULD AFFECT EEG: propofol, fentanyl TECHNICAL SUMMARY: This is a digital video-EEG recorded with 32 input channels reviewed with [...] Taisha Joiner MDNeurophysiology Fellow Mikhail Kwon MD, MSClinic al Neurophysiology/Epilepsy Attending HEPARIN [id number] 13:21:00 Test Item Value Reference Range Comments HEPARIN ANTIBODY (BEAKER) (test code = 646) Negative Nega tive HEPARIN ANTIBODY OD (BEAKER) (test code = 3128) 0.076 <0.400 4T TOTAL SCORE (BEAKER) (test code = 0807) 5 Probability of HIT based on scoring system: 6-8 = High probability; 4-5 = intermediate probability;0-3 = low probabilityPOCT-GLUCOSE [id number] 12:26:00 Test Item Value Reference Range Comments POC-GLUCOSE METER (BEAKER) 128 mg/dL 70-110 TESTE D AT [facility] [address] [facility] (test code = 1538) [place] [address] FIBRIN SOLUBLE [id number] 11:02:00 Test Item Value Reference Range Comments FIBRIN SOLUBLE MONOMER (BEAKER) (test code = 1416) Negative HEPARIN ASSAY - [id number] 10:20:00 Test Item Value Reference Range Comments UNFRACTIONATED HEPARIN-ANTI 10A (BEAKER) (test code = < u/ml 0.30-0.70 1606) Recommendations for Monitoring Unfractionated Heparin Therapeutic Range: 0.3- 0.7 u/mL with continuous IV [id number] 10:14:00 Test Item Value Reference Range Comments D-DIMER QUANTITATIVE (BEAKER) (test code = 3.76 MG/L FEU <0.50 671) Intended Use: The D-Dimer Assay can be used to aid in the diagnosis of Deep Vein Thrombosis (DVT) and Pulmonary Embolism Disease (PED).In patients with low pre- test probability, various studies concerning STA Liatest D-dimer test have reported that with a cutoff value of 0.50 MG/L FEU, the Negative Predictive Value (NPV) regarding the exclusion of thrombosis is within 95-100% range. GLUCOSE-STAT [id number] 10:03:00 Test Item Value Reference Range Comments GLUCOSE RANDOM (BEAKER) (test code = 652) 151 mg/dL 70-110 CALCIUM, [id number] 10:02:00 Test Item Value Reference Range Comments CALCIUM IONIZED (BEAKER) (test code = 698) 1.13 mmol/L 1.12- 1.27 PH, BLOOD (BEAKER) (test code = 1810) 7.36 POTASSIUM-STAT [id number] 10:01:00 Test Item Value Reference Range Comments POTASSIUM (BEAKER) (test code = 379) 4.3 meq/L 3.6-5.5 CBC W/PLT COUNT & AUTO [id number] 07:43:00 Test Item Value Reference Range Comments WHITE BLOOD CELL COUNT (BEAKER) (test code = 14.7 K/ L 3.5 -10.5 775) RED BLOOD CELL COUNT (BEAKER) (test code = 761) 2.90 M/ L 4.63-6.08 HEMOGLOBIN (BEAKER) (test code = 410) 9.0 GM/DL 13.7-17.5 HEMATOCRIT (BEAKER) (test code = 411) 27.4 % 40.1-51.0 MEAN CORPUSCULAR VOLUME (BEAKER) (test code = 94.5 fL 79 .0-92.2 753) MEAN CORPUSCULAR HEMOGLOBIN (BEAKER) (test code 31.0 pg 25.7-32.2 = 751) MEAN CORPUSCULAR HEMOGLOBIN CONC (BEAKER) (test 32.8 GM/DL 32.3-36.5 code = 752) RED CELL DISTRIBUTION WIDTH (BEAKER) (test code 18.7 % 11.6-14.4 = 412) PLATELET COUNT (BEAKER) (test code = 756) 42 K/CU MM 150-45 0 MEAN PLATELET VOLUME (BEAKER) (test code = 754) 11.2 fL 9.4-12.4 NUCLEATED RED BLOOD CELLS (BEAKER) (test code = 13 /100 WBC 0-0 413) NEUTROPHILS RELATIVE PERCENT (BEAKER) (test code 87 % = 429) LYMPHOCYTES RELATIVE PERCENT (BEAKER) (test code 3 % = 430) MONOCYTES RELATIVE PERCENT (BEAKER) (test code = 9 % 431) EOSINOPHILS RELATIVE PERCENT (BEAKER) (test code 0 % = 432) BASOPHILS RELATIVE PERCENT (BEAKER) (test code = 0 % 437) NEUTROPHILS ABSOLUTE COUNT (BEAKER) (test code = 12.77 K/ L 1.78-5.38 670) LYMPHOCYTES ABSOLUTE COUNT (BEAKER) (test code = 0.46 K/ L 1.32-3.57 414) MONOCYTES ABSOLUTE COUNT (BEAKER) (test code = 1.25 K/ L 0 .30-0.82 415) EOSINOPHILS ABSOLUTE COUNT (BEAKER) (test code = 0.00 K/ L 0.04-0.54 416) BASOPHILS ABSOLUTE COUNT (BEAKER) (test code = 0.01 K/ L 0 .01-0.08 417) IMMATURE GRANULOCYTES-RELATIVE PERCENT (BEAKER) 2 % 0-1 (test code = 2801) RAD, CHEST, 1 VIEW, NON [id number] 04:00:00Reason for exam:->acute respiratory insufficiencyShould this be performed at the bedside?->Yes Addendum BeginsREPORT STATUS:A Correction: Comparison is made to previous dated 01/14/2018. Signed: Kellen Parra MDRjerryort Verified Date/Time: 01/15/2018 04:00:43 Reading Location: [address] Reading RoomAddendum EndsFINAL REPORT CLINICAL ADEEL CATION: Respiratory insufficiency Comparison: 01/15/2018 The cardiomediastinal contours are stable. Central pulmonary vascular congestion and bilateral parenchymal opacities are unchanged. There is no pneumothorax. Support lines are stable. Signed: Kellen Parra MDReport Verified Date/Time: 01/15/201803:46:27 Reading Location: [address] Reading Room [id number] 03:36:00 Test Item Value Reference Range Comments PHOSPHORUS (BEAKER) (test code = 604) 2.7 mg/dL 2.3-4.7 [id number] 03:36:00 Test Item Value Reference Range Comments MAGNESIUM (BEAKER) (test code = 627) 2.0 mg/dL 1.6-2.6 COMPREHENSIVE METABOLIC [id number] 03:36:00 Test Item Value Reference Range Comments TOTAL PROTEIN (BEAKER) 5.2 gm/dL 6.0-8.3 (test code = 770) ALBUMIN (BEAKER) (test 2.9 g/dL 3.5-5.0 code = 1145) ALKALINE PHOSPHATASE 44 U/L 40-150 (BEAKER) (test code = 346) BILIRUBIN TOTAL (BEAKER) 5.6 mg/dL 0.2-1.2 (test code = 377) SODIUM (BEAKER) (test code 137 meq/L 136-145 = 381) POTASSIUM (BEAKER) (test 4.4 meq/L 3.5-5.1 code = 379) CHLORIDE (BEAKER) (test 104 meq/L 98-107 code = 382) CO2 (BEAKER) (test code = 23 meq/L 22-29 355) BLOOD UREA NITROGEN 27 mg/dL 7-21 (BEAKER) (test code = 354) CREATININE (BEAKER) (test 1.65 mg/dL 0.57-1.25 code = 358) GLUCOSE RANDOM (BEAKER) 134 mg/dL 70-105 (test code = 652) CALCIUM (BEAKER) (test 9.1 mg/dL 8.4-10.2 code = 697) AST (SGOT) (BEAKER) (test 315 U/L 5-34 code = 353) ALT (SGPT) (BEAKER) (test 665 U/L 6-55 code = 347) EGFR (BEAKER) (test code = 52 mL/min/1.73 sq m E STIMATED GFR IS NOT 1092) ACCURATE CREA TININE CLEARANCE IN PRE DICTING GLOMERULAR FILTR ATION RATE. ESTIMATED GFR IS NOT APPLICABLE F OR DIALYSIS PATIENT S. Specimen slightly ictericHEPATIC FUNCTION [id number] 03:36:00 Test Item Value Reference Range Comments TOTAL PROTEIN (BEAKER) (test code = 770) 5.2 gm/dL 6.0-8.3 ALBUMIN (BEAKER) (test code = 1145) 2.9 g/dL 3.5-5.0 BILIRUBIN TOTAL (BEAKER) (test code = 377) 5.6 mg/dL 0.2-1 .2 BILIRUBIN DIRECT (BEAKER) (test code = 706) 4.4 mg/dL 0.1- 0.5 ALKALINE PHOSPHATASE (BEAKER) (test code = 346) 44 U/L 40-150 AST (SGOT) (BEAKER) (test code = 353) 315 U/L 5-34 ALT (SGPT) (BEAKER) (test code = 347) 665 U/L 6-55 Specimen slightly ictericPROTHROMBIN [id number] 03:35:00 Test Item Value Reference Range Comments PROTIME (BEAKER) (test code = 759) 16.5 seconds 11.7-14.7 INR (BEAKER) (test code = 370) 1.3 <=5.9 RECOMMENDED COUMADIN/WARFARIN INR THERAPY RANGESSTANDARD DOSE: 2.0 - 3.0 Includes: PROPHYLAXIS forvenous thrombosis, systemic embolization; TREATMENT for venous thrombosis and/or pulmonary embolus.HIGH RISK: Target INR is 2.5-3.5 for patients with mechanical heart valves.LACTIC ACID, ARTERIAL, WHOLE BLOOD 2018-01-15 03:30:00 Test Item Value Reference Range Comments LACTATE BLOOD ARTERIAL (2) 0.8 mmol/L 0.5-2.2 Speci men slightly hemolyzed (BEAKER) (test code = 2874) Effective 01/04/2016: Units/Reference Range ChangeNew: 0.5-2.2 mmol/L Previous: 5-20 mg/dLSpecimen slightly ictericBLOOD GAS, [id number] 03:29:00 Test Item Value Reference Range Comments PH ARTERIAL (BEAKER) (test code = 383) 7.36 7.35-7.45 PCO2 ARTERIAL (BEAKER) (test code = 384) 45 mmHg 35-45 PO2 ARTERIAL (BEAKER) (test code = 385) 114 mmHg 80-90 O2 SATURATION ARTERIAL (BEAKER) (test code = 98.0 % 96. 0-97.0 386) HCO3 ARTERIAL (BEAKER) (test code = 388) 25 mmol/L 21-29 BASE EXCESS ARTERIAL (BEAKER) (test code = 387) -0.6 mmol/L -2.0-3.0 PATIENT TEMPERATURE (BEAKER) (test code = 1818) 37.0 C FIO2 (BEAKER) (test code = 1819) 40.0 % OXYGEN SATURATION, [id number] 03:26:00 Test Item Value Reference Range Comments O2 SATURATION (MEASURED) (BEAKER) (test code = 1455) 72.5 % CALCIUM, [id number] 00:17:00 Test Item Value Reference Range Comments CALCIUM IONIZED (BEAKER) (test code = 698) 1.19 mmol/L 1.12- 1.27 PH, BLOOD (BEAKER) (test code = 1810) 7.36 POCT-GLUCOSE [id number] 00:15:00 Test Item Value Reference Range Comments POC-GLUCOSE METER (BEAKER) 144 mg/dL 70-110 TESTE D AT [facility] [address] [facility] (test code = 1538) [facility] [phone] POCT-GLUCOSE [id number] 22:43:00 Test Item Value Reference Range Comments POC-GLUCOSE METER (BEAKER) 98 mg/dL 70-110 TESTE D AT [facility] [address] [facility] (test code = 1538) [place] [phone] POCT-GLUCOSE [id number] 22:43:00 Test Item Value Reference Range Comments POC-GLUCOSE METER (BEAKER) 80 mg/dL 70-110 TESTE D AT [facility] [address] [facility] (test code = 1538) [place] [phone] VANCOMYCIN LEVEL, [id number] 20:20:00 Test Item Value Reference Range Comments VANCOMYCIN TROUGH (BEAKER) (test code = 522) 20.1 ug/mL 10. 0-20.0 Before vanc [id number] 16:52:00 Test Item Value Reference Range Comments PHOSPHORUS (BEAKER) (test code = 604) 1.7 mg/dL 2.3-4.7 [id number] 16:52:00 Test Item Value Reference Range Comments MAGNESIUM (BEAKER) (test code = 627) 2.3 mg/dL 1.6-2.6 [id number] 16:39:00 Test Item Value Reference Range Comments AMMONIA (BEAKER) (test code = 348) 32 mol/L 18-72 PH, [id number] 16:01:00 Test Item Value Reference Range Comments PH ARTERIAL (BEAKER) (test code = 383) 7.42 7.35-7.45 GLUCOSE-STAT [id number] 16:01:00 Test Item Value Reference Range Comments GLUCOSE RANDOM (BEAKER) (test code = 652) 95 mg/dL 70-110 POTASSIUM-STAT [id number] 16:01:00 Test Item Value Reference Range Comments POTASSIUM (BEAKER) (test code = 379) 4.3 meq/L 3.6-5.5 CALCIUM, [id number] 16:01:00 Test Item Value Reference Range Comments CALCIUM IONIZED (BEAKER) (test code = 698) 1.28 mmol/L 1.12- 1.27 PH, BLOOD (BEAKER) (test code = 1810) 7.42 CALCIUM, [id number] 12:19:00 Test Item Value Reference Range Comments CALCIUM IONIZED (BEAKER) (test code = 698) 1.36 mmol/L 1.12- 1.27 PH, BLOOD (BEAKER) (test code = 1810) 7.41 GLUCOSE-STAT [id number] 12:17:00 Test Item Value Reference Range Comments GLUCOSE RANDOM (BEAKER) (test code = 652) 94 mg/dL 70-110 POTASSIUM-STAT [id number] 12:17:00 Test Item Value Reference Range Comments POTASSIUM (BEAKER) (test code = 379) 4.3 meq/L 3.6-5.5 [id number] 11:34:00 Test Item Value Reference Range Comments MAGNESIUM (BEAKER) (test code = 627) 2.1 mg/dL 1.6-2.6 BASIC METABOLIC [id number] 11:34:00 Test Item Value Reference Range Comments SODIUM (BEAKER) (test 135 meq/L 136-145 code = 381) POTASSIUM (BEAKER) (test 4.4 meq/L 3.5-5.1 code = 379) CHLORIDE (BEAKER) (test 104 meq/L 98-107 code = 382) CO2 (BEAKER) (test code = 23 meq/L 22-29 355) BLOOD UREA NITROGEN 28 mg/dL 7-21 (BEAKER) (test code = 354) CREATININE (BEAKER) (test 1.69 mg/dL 0.57-1.25 code = 358) GLUCOSE RANDOM (BEAKER) 148 mg/dL 70-105 (test code = 652) CALCIUM (BEAKER) (test 9.0 mg/dL 8.4-10.2 code = 697) EGFR (BEAKER) (test code 50 mL/min/1.73 sq m EST IMATED GFR IS NOT = 1092) ACCURATE CREA TININE CLEARANCE IN PRE DICTING GLOMERULAR FILTR ATION RATE. ESTIMATED GFR IS NOT APPLICABLE F OR DIALYSIS PATIENT S. Specimen slightly ictericHEPATIC FUNCTION [id number] 11:34:00 Test Item Value Reference Range Comments TOTAL PROTEIN (BEAKER) (test code = 770) 5.2 gm/dL 6.0-8.3 ALBUMIN (BEAKER) (test code = 1145) 3.0 g/dL 3.5-5.0 BILIRUBIN TOTAL (BEAKER) (test code = 377) 4.3 mg/dL 0.2-1 .2 BILIRUBIN DIRECT (BEAKER) (test code = 706) 3.3 mg/dL 0.1- 0.5 ALKALINE PHOSPHATASE (BEAKER) (test code = 346) 39 U/L 40-150 AST (SGOT) (BEAKER) (test code = 353) 817 U/L 5-34 ALT (SGPT) (BEAKER) (test code = 347) 1247 U/L 6-55 Specimen slightly ictericBLOOD GAS, [id number] 09:44:00 Test Item Value Reference Range Comments PH ARTERIAL (BEAKER) (test code = 383) 7.40 7.35-7.45 PCO2 ARTERIAL (BEAKER) (test code = 384) 46 mmHg 35-45 PO2 ARTERIAL (BEAKER) (test code = 385) 238 mmHg 80-90 O2 SATURATION ARTERIAL (BEAKER) (test code = 386) 99.5 % 96.0-97.0 HCO3 ARTERIAL (BEAKER) (test code = 388) 28 mmol/L 21-29 BASE EXCESS ARTERIAL (BEAKER) (test code = 387) 2.4 mmol/L -2.0-3.0 PATIENT TEMPERATURE (BEAKER) (test code = 1818) 37.0 C FIO2 (BEAKER) (test code = 1819) 100.0 % GLUCOSE-STAT [id number] 09:42:00 Test Item Value Reference Range Comments GLUCOSE RANDOM (BEAKER) (test code = 652) 95 mg/dL 70-110 POTASSIUM-STAT [id number] 09:42:00 Test Item Value Reference Range Comments POTASSIUM (BEAKER) (test code = 379) 4.5 meq/L 3.6-5.5 CALCIUM, [id number] 09:38:00 Test Item Value Reference Range Comments CALCIUM IONIZED (BEAKER) (test code = 698) 1.26 mmol/L 1.12- 1.27 PH, BLOOD (BEAKER) (test code = 1810) 7.41 HEPARIN ASSAY - [id number] 08:44:00 Test Item Value Reference Range Comments UNFRACTIONATED HEPARIN-ANTI 10A (BEAKER) (test code = < u/ml 0.30-0.70 1606) Recommendations for Monitoring Unfractionated Heparin Therapeutic Range: 0.3- 0.7 u/mL with continuous IV infusionGLUCOSE-STAT [id number] 06:41:00 Test Item Value Reference Range Comments GLUCOSE RANDOM (BEAKER) (test code = 652) 127 mg/dL 70-110 THROMBOELASTOGRAPH (TEG)2018-01-14 06:14:00 Test Item Value Reference Range Comments TEG ACTIVATED CLOTTING TIME (BEAKER) (test code 5.1 minutes 4.0-7.0 = 1407) TEG FIBRINOGEN ACTIVITY (BEAKER) (test code = 66.3 degrees 61 .0-73.0 1408) TEG PLT. AGGREGATION (BEAKER) (test code = 57.8 MM 55.0- 65.0 1409) TEG FIBRINOLYSIS (BEAKER) (test code = 1410) 0.0 % 0.0 -5.0 TGH ACTIVATED CLOTTING TIME (BEAKER) (test code 5.1 minutes 4.0-7.0 = 1411) TGH FIBRINOGEN ACTIVITY (BEAKER) (test code = 65.6 degrees 61 .0-73.0 1412) TGH PLT. AGGREGATION (BEAKER) (test code = 56.4 MM 55.0- 65.0 1413) TGH FIBRINOLYSIS (BEAKER) (test code = 1414) 0.0 % 0.0 -5.0 [id number] 05:05:00 Test Item Value Reference Range Comments PHOSPHORUS (BEAKER) (test code = 604) 2.5 mg/dL 2.3-4.7 [id number] 05:05:00 Test Item Value Reference Range Comments MAGNESIUM (BEAKER) (test code = 627) 2.1 mg/dL 1.6-2.6 HEPATIC FUNCTION [id number] 05:05:00 Test Item Value Reference Range Comments TOTAL PROTEIN (BEAKER) (test code = 770) 5.2 gm/dL 6.0-8.3 ALBUMIN (BEAKER) (test code = 1145) 3.0 g/dL 3.5-5.0 BILIRUBIN TOTAL (BEAKER) (test code = 377) 4.3 mg/dL 0.2-1 .2 BILIRUBIN DIRECT (BEAKER) (test code = 706) 3.4 mg/dL 0.1- 0.5 ALKALINE PHOSPHATASE (BEAKER) (test code = 346) 40 U/L 40-150 AST (SGOT) (BEAKER) (test code = 353) 815 U/L 5-34 ALT (SGPT) (BEAKER) (test code = 347) 1266 U/L 6-55 Specimen slightly [id number] 05:05:00 Test Item Value Reference Range Comments CALCIUM (BEAKER) (test code = 697) 9.0 mg/dL 8.4-10.2 LACTATE DEHYDROGENASE (LDH)2018-01-14 05:05:00 Test Item Value Reference Range Comments LACTATE DEHYDROGENASE (BEAKER) (test code = 635) 667 U/L 125-220 PROTHROMBIN [id number] 05:05:00 Test Item Value Reference Range Comments PROTIME (BEAKER) (test code = 759) 15.2 seconds 11.7-14.7 INR (BEAKER) (test code = 370) 1.2 <=5.9 RECOMMENDED COUMADIN/WARFARIN INR THERAPY RANGESSTANDARD DOSE: 2.0 - 3.0 Includes: PROPHYLAXIS forvenous thrombosis, systemic embolization; TREATMENT for venous thrombosis and/or pulmonary embolus.HIGH RISK: Target INR is 2.5-3.5 for patients with mechanical heart valves.[id number] 05:05:00 Test Item Value Reference Range Comments FIBRINOGEN LEVEL (BEAKER) (test code = 658) 280 mg/dl 225- 434 RAD, CHEST, 1 VIEW, NON [id number] 04:57:00Reason for exam:- >impella/ECMO/intubationShould this be performed at the bedside?->YesFINAL REPORT CLINICAL INDICATION: Support lines. Comparison: 01/13/2018 The cardiomediastinal contours are stable. Cardiac opacities may reflect atelectasis but pneumonitis should be excluded clinically. There is no pneumothorax. Support lines are stable. Signed: Kellen Parra MDReport Verified Date/Time: 01/14/2018 04:57:02 Reading Location: [address] Reading Room LACTIC ACID, ARTERIAL, WHOLE [id number] 04:55:00 Test Item Value Reference Range Comments LACTATE BLOOD ARTERIAL (2) (BEAKER) (test code = 1.2 mmol/L 0.5-2.2 2874) Effective 01/04/2016: Units/Reference Range ChangeNew: 0.5-2.2 mmol/L Previous: 5-20 mg/dLSpecimen slightly ictericCBC (HEMOGRAM ONLY)2018-01-14 04:45:00 Test Item Value Reference Range Comments WHITE BLOOD CELL COUNT (BEAKER) (test code = 11.7 K/ L 3.5 -10.5 775) RED BLOOD CELL COUNT (BEAKER) (test code = 761) 2.83 M/ L 4.63-6.08 HEMOGLOBIN (BEAKER) (test code = 410) 9.0 GM/DL 13.7-17.5 HEMATOCRIT (BEAKER) (test code = 411) 26.5 % 40.1-51.0 MEAN CORPUSCULAR VOLUME (BEAKER) (test code = 93.6 fL 79 .0-92.2 753) MEAN CORPUSCULAR HEMOGLOBIN (BEAKER) (test code 31.8 pg 25.7-32.2 = 751) MEAN CORPUSCULAR HEMOGLOBIN CONC (BEAKER) (test 34.0 GM/DL 32.3-36.5 code = 752) RED CELL DISTRIBUTION WIDTH (BEAKER) (test code 18.4 % 11.6-14.4 = 412) PLATELET COUNT (BEAKER) (test code = 756) 64 K/CU MM 150-45 0 MEAN PLATELET VOLUME (BEAKER) (test code = 754) 11.5 fL 9.4-12.4 NUCLEATED RED BLOOD CELLS (BEAKER) (test code = 16 /100 WBC 0-0 413) CALCIUM, [id number] 04:39:00 Test Item Value Reference Range Comments CALCIUM IONIZED (BEAKER) (test code = 698) 1.20 mmol/L 1.12- 1.27 PH, BLOOD (BEAKER) (test code = 1810) 7.37 OXYGEN SATURATION, [id number] 04:38:00 Test Item Value Reference Range Comments O2 SATURATION (MEASURED) (BEAKER) (test code = 1455) 75.3 % BLOOD GAS, [id number] 04:37:00 Test Item Value Reference Range Comments PH ARTERIAL (BEAKER) (test code = 383) 7.39 7.35-7.45 PCO2 ARTERIAL (BEAKER) (test code = 384) 46 mmHg 35-45 PO2 ARTERIAL (BEAKER) (test code = 385) 251 mmHg 80-90 O2 SATURATION ARTERIAL (BEAKER) (test code = 386) 99.6 % 96.0-97.0 HCO3 ARTERIAL (BEAKER) (test code = 388) 27 mmol/L 21-29 BASE EXCESS ARTERIAL (BEAKER) (test code = 387) 1.6 mmol/L -2.0-3.0 PATIENT TEMPERATURE (BEAKER) (test code = 1818) 35.4 C FIO2 (BEAKER) (test code = 1819) 40.0 % GLUCOSE-STAT [id number] 04:37:00 Test Item Value Reference Range Comments GLUCOSE RANDOM (BEAKER) (test code = 652) 154 mg/dL 70-110 GLUCOSE-STAT [id number] 02:52:00 Test Item Value Reference Range Comments GLUCOSE RANDOM (BEAKER) (test code = 652) 179 mg/dL 70-110 GLUCOSE-STAT [id number] 01:26:00 Test Item Value Reference Range Comments GLUCOSE RANDOM (BEAKER) (test code = 652) 195 mg/dL 70-110 [id number] 00:08:00 Test Item Value Reference Range Comments POTASSIUM (BEAKER) (test code = 379) 4.2 meq/L 3.5-5.1 [id number] 00:08:00 Test Item Value Reference Range Comments GLUCOSE RANDOM (BEAKER) (test code = 652) 237 mg/dL 70-105 CBC W/PLT COUNT & AUTO [id number] 22:28:00 Test Item Value Reference Range Comments WHITE BLOOD CELL COUNT (BEAKER) (test code = 13.2 K/ L 3.5 -10.5 775) RED BLOOD CELL COUNT (BEAKER) (test code = 761) 2.32 M/ L 4.63-6.08 HEMOGLOBIN (BEAKER) (test code = 410) 7.5 GM/DL 13.7-17.5 HEMATOCRIT (BEAKER) (test code = 411) 22.6 % 40.1-51.0 MEAN CORPUSCULAR VOLUME (BEAKER) (test code = 97.4 fL 79 .0-92.2 753) MEAN CORPUSCULAR HEMOGLOBIN (BEAKER) (test code 32.3 pg 25.7-32.2 = 751) MEAN CORPUSCULAR HEMOGLOBIN CONC (BEAKER) (test 33.2 GM/DL 32.3-36.5 code = 752) RED CELL DISTRIBUTION WIDTH (BEAKER) (test code 17.6 % 11.6-14.4 = 412) PLATELET COUNT (BEAKER) (test code = 756) 74 K/CU MM 150-45 0 MEAN PLATELET VOLUME (BEAKER) (test code = 754) 11.3 fL 9.4-12.4 NUCLEATED RED BLOOD CELLS (BEAKER) (test code = 11 /100 WBC 0-0 413) RAD, CHEST, 1 VIEW, NON [id number] 21:50:00Reason for exam:->chest tubes/intubationShould this be performed at the bedside?->YesFINAL REPORT TECHNIQUE: Single view of the chest. COMPARISON: 01/13/2018 at 3:21 AM FINDINGS: Mild prominent interstitial markings in the lungs are stable. There are no large pleural effusions. No gross pneumothorax.No gross new lung parenchymal changes. Previous transfemoral cannula has been removed. Impella device no longer seen. Remaining Lines and tubes are stable. Signed: Kyle Arita MDReport Verified Date/Time: 01/13/2018 21:50:50 Reading Location: [facility] B1 [id number] Consult Reading Room THROMBOELASTOGRAPH (TEG)2018-01-13 21:45:00 Test Item Value Reference Range Comments TEG ACTIVATED CLOTTING TIME (BEAKER) (test code 5.8 minutes 4.0-7.0 = 1407) TEG FIBRINOGEN ACTIVITY (BEAKER) (test code = 63.1 degrees 61 .0-73.0 1408) TEG PLT. AGGREGATION (BEAKER) (test code = 51.7 MM 55.0- 65.0 1409) TEG FIBRINOLYSIS (BEAKER) (test code = 1410) 0.0 % 0.0 -5.0 TGH ACTIVATED CLOTTING TIME (BEAKER) (test code 5.8 minutes 4.0-7.0 = 1411) TGH FIBRINOGEN ACTIVITY (BEAKER) (test code = 64.9 degrees 61 .0-73.0 1412) TGH PLT. AGGREGATION (BEAKER) (test code = 50.0 MM 55.0- 65.0 1413) TGH FIBRINOLYSIS (BEAKER) (test code = 1414) 0.0 % 0.0 -5.0 BASIC METABOLIC [id number] 21:35:00 Test Item Value Reference Range Comments SODIUM (BEAKER) (test 135 meq/L 136-145 code = 381) POTASSIUM (BEAKER) (test 3.4 meq/L 3.5-5.1 code = 379) CHLORIDE (BEAKER) (test 103 meq/L 98-107 code = 382) CO2 (BEAKER) (test code = 21 meq/L 22-29 355) BLOOD UREA NITROGEN 31 mg/dL 7-21 (BEAKER) (test code = 354) CREATININE (BEAKER) (test 1.96 mg/dL 0.57-1.25 code = 358) GLUCOSE RANDOM (BEAKER) 239 mg/dL 70-105 (test code = 652) CALCIUM (BEAKER) (test 7.9 mg/dL 8.4-10.2 code = 697) EGFR (BEAKER) (test code 42 mL/min/1.73 sq m EST IMATED GFR IS NOT = 1092) ACCURATE CREA TININE CLEARANCE IN PRE DICTING GLOMERULAR FILTR ATION RATE. ESTIMATED GFR IS NOT APPLICABLE F OR DIALYSIS PATIENT S. Specimen slightly [id number] 21:06:00 Test Item Value Reference Range Comments PHOSPHORUS (BEAKER) (test code = 604) 3.7 mg/dL 2.3-4.7 [id number] 21:06:00 Test Item Value Reference Range Comments MAGNESIUM (BEAKER) (test code = 627) 2.0 mg/dL 1.6-2.6 LACTIC ACID, ARTERIAL, WHOLE [id number] 21:06:00 Test Item Value Reference Range Comments LACTATE BLOOD ARTERIAL (2) (BEAKER) (test code = 1.8 mmol/L 0.5-2.2 2874) Effective 01/04/2016: Units/Reference Range ChangeNew: 0.5-2.2 mmol/L Previous: 5-20 mg/dLSpecimen slightly [id number] 21:01:00 Test Item Value Reference Range Comments PARTIAL THROMBOPLASTIN TIME (BEAKER) (test code 35.1 seconds 22.5-36.0 = 760) [id number] 21:00:00 Test Item Value Reference Range Comments FIBRINOGEN LEVEL (BEAKER) (test code = 658) 253 mg/dl 225- 434 PROTHROMBIN [id number] 20:59:00 Test Item Value Reference Range Comments PROTIME (BEAKER) (test code = 759) 16.4 seconds 11.7-14.7 INR (BEAKER) (test code = 370) 1.3 <=5.9 RECOMMENDED COUMADIN/WARFARIN INR THERAPY RANGESSTANDARD DOSE: 2.0 - 3.0 Includes: PROPHYLAXIS forvenous thrombosis, systemic embolization; TREATMENT for venous thrombosis and/or pulmonary embolus.HIGH RISK: Target INR is 2.5-3.5 for patients with mechanical heart valves.BLOOD GAS, [id number] 20:47:00 Test Item Value Reference Range Comments PH ARTERIAL (BEAKER) (test code = 383) 7.39 7.35-7.45 PCO2 ARTERIAL (BEAKER) (test code = 384) 37 mmHg 35-45 PO2 ARTERIAL (BEAKER) (test code = 385) 230 mmHg 80-90 O2 SATURATION ARTERIAL (BEAKER) (test code = 99.5 % 96. 0-97.0 386) HCO3 ARTERIAL (BEAKER) (test code = 388) 22 mmol/L 21-29 BASE EXCESS ARTERIAL (BEAKER) (test code = 387) -2.6 mmol/L -2.0-3.0 PATIENT TEMPERATURE (BEAKER) (test code = 1818) 35.6 C FIO2 (BEAKER) (test code = 1819) 40.0 % GLUCOSE-STAT [id number] 20:47:00 Test Item Value Reference Range Comments GLUCOSE RANDOM (BEAKER) (test code = 652) 235 mg/dL 70-110 CALCIUM, [id number] 20:47:00 Test Item Value Reference Range Comments CALCIUM IONIZED (BEAKER) (test code = 698) 0.97 mmol/L 1.12- 1.27 PH, BLOOD (BEAKER) (test code = 1810) 7.39 HGB/HCT (H&H) - STAT [id number] 20:46:00 Test Item Value Reference Range Comments HEMOGLOBIN (BEAKER) (test code = 410) 7.7 g/dL 13.0-16.8 HEMATOCRIT (BEAKER) (test code = 411) 23.0 % 40.0-50.0 POTASSIUM-STAT [id number] 20:46:00 Test Item Value Reference Range Comments POTASSIUM (BEAKER) (test code = 379) 3.4 meq/L 3.6-5.5 SODIUM NA-STAT [id number] 20:46:00 Test Item Value Reference Range Comments SODIUM (BEAKER) (test code = 381) 133 meq/L 135-148 OXYGEN SATURATION, [id number] 20:42:00 Test Item Value Reference Range Comments O2 SATURATION (MEASURED) (BEAKER) (test code = 1455) 74.1 % BLOOD GAS, [id number] 18:58:00 Test Item Value Reference Range Comments PH ARTERIAL (BEAKER) (test code = 383) 7.53 7.35-7.45 PCO2 ARTERIAL (BEAKER) (test code = 384) 24 mmHg 35-45 PO2 ARTERIAL (BEAKER) (test code = 385) 582 mmHg 80-90 O2 SATURATION ARTERIAL (BEAKER) (test code = 99.9 % 96. 0-97.0 386) HCO3 ARTERIAL (BEAKER) (test code = 388) 20 mmol/L 21-29 BASE EXCESS ARTERIAL (BEAKER) (test code = 387) -2.3 mmol/L -2.0-3.0 PATIENT TEMPERATURE (BEAKER) (test code = 1818) 37.0 C FIO2 (BEAKER) (test code = 1819) 100.0 % SODIUM NA-STAT [id number] 18:58:00 Test Item Value Reference Range Comments SODIUM (BEAKER) (test code = 381) 131 meq/L 135-148 POTASSIUM-STAT [id number] 18:58:00 Test Item Value Reference Range Comments POTASSIUM (BEAKER) (test code = 379) 3.4 meq/L 3.6-5.5 GLUCOSE-STAT [id number] 18:58:00 Test Item Value Reference Range Comments GLUCOSE RANDOM (BEAKER) (test code = 652) 214 mg/dL 70-110 HGB/HCT (H&H) - STAT [id number] 18:58:00 Test Item Value Reference Range Comments HEMOGLOBIN (BEAKER) (test code = 410) 8.1 g/dL 13.0-16.8 HEMATOCRIT (BEAKER) (test code = 411) 24.0 % 40.0-50.0 THROMBOELASTOGRAPH (TEG)2018-01-13 18:23:00 Test Item Value Reference Range Comments TEG ACTIVATED CLOTTING TIME (BEAKER) (test code 18.1 minutes 4.0-7.0 = 1407) TEG FIBRINOGEN ACTIVITY (BEAKER) (test code = 46.7 degrees 61 .0-73.0 1408) TEG PLT. AGGREGATION (BEAKER) (test code = 51.7 MM 55.0- 65.0 1409) TEG FIBRINOLYSIS (BEAKER) (test code = 1410) 0.1 % 0.0 -5.0 TGH ACTIVATED CLOTTING TIME (BEAKER) (test code 8.6 minutes 4.0-7.0 = 1411) TGH FIBRINOGEN ACTIVITY (BEAKER) (test code = 61.3 degrees 61 .0-73.0 1412) TGH PLT. AGGREGATION (BEAKER) (test code = 50.2 MM 55.0- 65.0 1413) TGH FIBRINOLYSIS (BEAKER) (test code = 1414) 0.0 % 0.0 -5.0 BLOOD GAS, [id number] 18:11:00 Test Item Value Reference Range Comments PH ARTERIAL (BEAKER) (test code = 383) 7.56 7.35-7.45 PCO2 ARTERIAL (BEAKER) (test code = 384) 27 mmHg 35-45 PO2 ARTERIAL (BEAKER) (test code = 385) 523 mmHg 80-90 O2 SATURATION ARTERIAL (BEAKER) (test code = 386) 99.9 % 96.0-97.0 HCO3 ARTERIAL (BEAKER) (test code = 388) 24 mmol/L 21-29 BASE EXCESS ARTERIAL (BEAKER) (test code = 387) 1.6 mmol/L -2.0-3.0 PATIENT TEMPERATURE (BEAKER) (test code = 1818) 37.0 C FIO2 (BEAKER) (test code = 1819) 97.0 % SODIUM NA-STAT [id number] 18:11:00 Test Item Value Reference Range Comments SODIUM (BEAKER) (test code = 381) 132 meq/L 135-148 GLUCOSE-STAT [id number] 18:11:00 Test Item Value Reference Range Comments GLUCOSE RANDOM (BEAKER) (test code = 652) 200 mg/dL 70-110 HGB/HCT (H&H) - STAT [id number] 18:11:00 Test Item Value Reference Range Comments HEMOGLOBIN (BEAKER) (test code = 410) 8.2 g/dL 13.0-16.8 HEMATOCRIT (BEAKER) (test code = 411) 24.0 % 40.0-50.0 POTASSIUM-STAT [id number] 18:07:00 Test Item Value Reference Range Comments POTASSIUM (BEAKER) (test code = 379) 3.5 meq/L 3.6-5.5 [id number] 16:37:00 Test Item Value Reference Range Comments PHOSPHORUS (BEAKER) (test code = 604) 2.5 mg/dL 2.3-4.7 [id number] 16:37:00 Test Item Value Reference Range Comments MAGNESIUM (BEAKER) (test code = 627) 2.1 mg/dL 1.6-2.6 [id number] 16:29:00 Test Item Value Reference Range Comments PROTIME (BEAKER) (test code = 759) 15.1 seconds 11.7-14.7 INR (BEAKER) (test code = 370) 1.2 <=5.9 PARTIAL THROMBOPLASTIN TIME (BEAKER) (test code 65.5 seconds 22.5-36.0 = 760) RECOMMENDED COUMADIN/WARFARIN INR THERAPY RANGESSTANDARD DOSE: 2.0 - 3.0 Includes: PROPHYLAXIS forvenous thrombosis, systemic embolization; TREATMENT for venous thrombosis and/or pulmonary embolus.HIGH RISK: Target INR is 2.5-3.5 for patients with mechanical heart valves.BLOOD GAS, [id number] 16:16:00 Test Item Value Reference Range Comments PH ARTERIAL (BEAKER) (test code = 383) 7.64 7.35-7.45 PCO2 ARTERIAL (BEAKER) (test code = 384) 24 mmHg 35-45 PO2 ARTERIAL (BEAKER) (test code = 385) 289 mmHg 80-90 O2 SATURATION ARTERIAL (BEAKER) (test code = 386) 99.8 % 96.0-97.0 HCO3 ARTERIAL (BEAKER) (test code = 388) 25 mmol/L 21-29 BASE EXCESS ARTERIAL (BEAKER) (test code = 387) 4.4 mmol/L -2.0-3.0 PATIENT TEMPERATURE (BEAKER) (test code = 1818) 36.7 C FIO2 (BEAKER) (test code = 1819) 40.0 % CALCIUM, [id number] 16:14:00 Test Item Value Reference Range Comments CALCIUM IONIZED (BEAKER) (test code = 698) 1.09 mmol/L 1.12- 1.27 PH, BLOOD (BEAKER) (test code = 1810) 7.64 GLUCOSE-STAT [id number] 16:12:00 Test Item Value Reference Range Comments GLUCOSE RANDOM (BEAKER) (test code = 652) 182 mg/dL 70-110 CALCIUM, [id number] 12:53:00 Test Item Value Reference Range Comments CALCIUM IONIZED (BEAKER) (test code = 698) 1.12 mmol/L 1.12- 1.27 PH, BLOOD (BEAKER) (test code = 1810) 7.51 BLOOD GAS, [id number] 12:53:00 Test Item Value Reference Range Comments PH ARTERIAL (BEAKER) (test code = 383) 7.51 7.35-7.45 PCO2 ARTERIAL (BEAKER) (test code = 384) 33 mmHg 35-45 PO2 ARTERIAL (BEAKER) (test code = 385) 350 mmHg 80-90 O2 SATURATION ARTERIAL (BEAKER) (test code = 386) 99.8 % 96.0-97.0 HCO3 ARTERIAL (BEAKER) (test code = 388) 26 mmol/L 21-29 BASE EXCESS ARTERIAL (BEAKER) (test code = 387) 2.5 mmol/L -2.0-3.0 PATIENT TEMPERATURE (BEAKER) (test code = 1818) 37.2 C FIO2 (BEAKER) (test code = 1819) 40.0 % HGB/HCT (H&H) - STAT [id number] 12:53:00 Test Item Value Reference Range Comments HEMOGLOBIN (BEAKER) (test code = 410) 8.3 g/dL 13.0-16.8 HEMATOCRIT (BEAKER) (test code = 411) 24.0 % 40.0-50.0 GLUCOSE-STAT [id number] 12:53:00 Test Item Value Reference Range Comments GLUCOSE RANDOM (BEAKER) (test code = 652) 185 mg/dL 70-110 POTASSIUM-STAT [id number] 12:52:00 Test Item Value Reference Range Comments POTASSIUM (BEAKER) (test code = 379) 3.7 meq/L 3.6-5.5 CBC W/PLT COUNT & AUTO [id number] 11:04:00 Test Item Value Reference Range Comments WHITE BLOOD CELL COUNT (BEAKER) (test code = 775) 11.1 K/ L 3.5-10.5 RED BLOOD CELL COUNT (BEAKER) (test code = 761) 2.49 M/ L 4.63-6.08 HEMOGLOBIN (BEAKER) (test code = 410) 8.1 GM/DL 13.7-17.5 HEMATOCRIT (BEAKER) (test code = 411) 24.2 % 40.1-51.0 MEAN CORPUSCULAR VOLUME (BEAKER) (test code = 97.2 fL 79 .0-92.2 753) MEAN CORPUSCULAR HEMOGLOBIN (BEAKER) (test code = 32.5 pg 25.7-32.2 751) MEAN CORPUSCULAR HEMOGLOBIN CONC (BEAKER) (test 33.5 GM/DL 32.3-36.5 code = 752) RED CELL DISTRIBUTION WIDTH (BEAKER) (test code = 17.8 % 11.6-14.4 412) PLATELET COUNT (BEAKER) (test code = 756) 89 K/CU MM 150-45 0 MEAN PLATELET VOLUME (BEAKER) (test code = 754) 11.4 fL 9.4-12.4 NUCLEATED RED BLOOD CELLS (BEAKER) (test code = 8 /100 WBC 0-0 413) POTASSIUM-STAT [id number] 10:49:00 Test Item Value Reference Range Comments POTASSIUM (BEAKER) (test code = 379) 3.8 meq/L 3.6-5.5 HEPARIN ASSAY - [id number] 09:55:00 Test Item Value Reference Range Comments UNFRACTIONATED HEPARIN-ANTI 10A (BEAKER) (test 0.14 u/ml 0 .30-0.70 code = 1606) Recommendations for Monitoring Unfractionated Heparin Therapeutic Range: 0.3- 0.7 u/mL with continuous IV [id number] 09:54:00 Test Item Value Reference Range Comments PARTIAL THROMBOPLASTIN TIME (BEAKER) (test code 57.6 seconds 22.5-36.0 = 760) BLOOD GAS, [id number] 09:33:00 Test Item Value Reference Range Comments PH ARTERIAL (BEAKER) (test code = 383) 7.50 7.35-7.45 PCO2 ARTERIAL (BEAKER) (test code = 384) 33 mmHg 35-45 PO2 ARTERIAL (BEAKER) (test code = 385) 336 mmHg 80-90 O2 SATURATION ARTERIAL (BEAKER) (test code = 386) 99.8 % 96.0-97.0 HCO3 ARTERIAL (BEAKER) (test code = 388) 25 mmol/L 21-29 BASE EXCESS ARTERIAL (BEAKER) (test code = 387) 2.1 mmol/L -2.0-3.0 PATIENT TEMPERATURE (BEAKER) (test code = 1818) 37.2 C FIO2 (BEAKER) (test code = 1819) 40.0 % GLUCOSE-STAT [id number] 09:33:00 Test Item Value Reference Range Comments GLUCOSE RANDOM (BEAKER) (test code = 652) 192 mg/dL 70-110 GLUCOSE-STAT [id number] 09:33:00 Test Item Value Reference Range Comments GLUCOSE RANDOM (BEAKER) (test code = 652) 192 mg/dL 70-110 CALCIUM, [id number] 09:32:00 Test Item Value Reference Range Comments CALCIUM IONIZED (BEAKER) (test code = 698) 1.15 mmol/L 1.12- 1.27 PH, BLOOD (BEAKER) (test code = 1810) 7.51 BLOOD GAS, [id number] 07:23:00 Test Item Value Reference Range Comments PH ARTERIAL (BEAKER) (test code = 383) 7.53 7.35-7.45 PCO2 ARTERIAL (BEAKER) (test code = 384) 30 mmHg 35-45 PO2 ARTERIAL (BEAKER) (test code = 385) 336 mmHg 80-90 O2 SATURATION ARTERIAL (BEAKER) (test code = 386) 99.8 % 96.0-97.0 HCO3 ARTERIAL (BEAKER) (test code = 388) 24 mmol/L 21-29 BASE EXCESS ARTERIAL (BEAKER) (test code = 387) 1.8 mmol/L -2.0-3.0 PATIENT TEMPERATURE (BEAKER) (test code = 1818) 36.9 C FIO2 (BEAKER) (test code = 1819) 40.0 % THROMBOELASTOGRAPH (TEG)[id number] 06:54:00 Test Item Value Reference Range Comments TEG ACTIVATED CLOTTING TIME (BEAKER) (test code 28.1 minutes 4.0-7.0 = 1407) TEG FIBRINOGEN ACTIVITY (BEAKER) (test code = 28.6 degrees 61 .0-73.0 1408) TEG PLT. AGGREGATION (BEAKER) (test code = 45.8 MM 55.0- 65.0 1409) TEG FIBRINOLYSIS (BEAKER) (test code = 1410) 0.0 % 0.0 -5.0 TGH ACTIVATED CLOTTING TIME (BEAKER) (test code 9.9 minutes 4.0-7.0 = 1411) TGH FIBRINOGEN ACTIVITY (BEAKER) (test code = 61.4 degrees 61 .0-73.0 1412) TGH PLT. AGGREGATION (BEAKER) (test code = 50.5 MM 55.0- 65.0 1413) TGH FIBRINOLYSIS (BEAKER) (test code = 1414) 0.0 % 0.0 -5.0 BLOOD GAS, [id number] 06:13:00 Test Item Value Reference Range Comments PH ARTERIAL (BEAKER) (test code = 383) 7.53 7.35-7.45 PCO2 ARTERIAL (BEAKER) (test code = 384) 28 mmHg 35-45 PO2 ARTERIAL (BEAKER) (test code = 385) 337 mmHg 80-90 O2 SATURATION ARTERIAL (BEAKER) (test code = 386) 99.8 % 96.0-97.0 HCO3 ARTERIAL (BEAKER) (test code = 388) 23 mmol/L 21-29 BASE EXCESS ARTERIAL (BEAKER) (test code = 387) 0.7 mmol/L -2.0-3.0 PATIENT TEMPERATURE (BEAKER) (test code = 1818) 36.8 C FIO2 (BEAKER) (test code = 1819) 40.0 % BLOOD GAS, [id number] 05:13:00 Test Item Value Reference Range Comments PH ARTERIAL (BEAKER) (test code = 383) 7.46 7.35-7.45 PCO2 ARTERIAL (BEAKER) (test code = 384) 37 mmHg 35-45 PO2 ARTERIAL (BEAKER) (test code = 385) 522 mmHg 80-90 O2 SATURATION ARTERIAL (BEAKER) (test code = 386) 99.9 % 96.0-97.0 HCO3 ARTERIAL (BEAKER) (test code = 388) 26 mmol/L 21-29 BASE EXCESS ARTERIAL (BEAKER) (test code = 387) 1.6 mmol/L -2.0-3.0 PATIENT TEMPERATURE (BEAKER) (test code = 1818) 36.8 C FIO2 (BEAKER) (test code = 1819) 100.0 % [id number] 04:41:00 Test Item Value Reference Range Comments PARTIAL THROMBOPLASTIN TIME (BEAKER) (test code 61.3 seconds 22.5-36.0 = 760) RAD, CHEST, 1 VIEW, NON [id number] 04:38:00Reason for exam:- >impella/ECMO/intubationShould this be performed at the bedside?->YesFINAL REPORT CLINICAL INDICATION: Support lines. Comparison: 01/12/2018 The cardiomediastinal contours are stable. Central pulmonary vascular prominence and bilateral parenchymalopacities are previous. There is no pneumothorax. Support lines are stable. Signed: Kellen Parra Verified Date/Time: 01/13/2018 04:38:41 Reading Location: [address] Reading Room HEPATIC FUNCTION [id number] 04:25:00 Test Item Value Reference Range Comments TOTAL PROTEIN (BEAKER) (test code = 770) 5.0 gm/dL 6.0-8.3 ALBUMIN (BEAKER) (test code = 1145) 2.7 g/dL 3.5-5.0 BILIRUBIN TOTAL (BEAKER) (test code = 377) 4.6 mg/dL 0.2-1 .2 BILIRUBIN DIRECT (BEAKER) (test code = 706) 3.6 mg/dL 0.1- 0.5 ALKALINE PHOSPHATASE (BEAKER) (test code = 346) 43 U/L 40-150 AST (SGOT) (BEAKER) (test code = 353) 2670 U/L 5-34 ALT (SGPT) (BEAKER) (test code = 347) 2232 U/L 6-55 Specimen slightly [id number] 04:19:00 Test Item Value Reference Range Comments PHOSPHORUS (BEAKER) (test code = 604) 4.1 mg/dL 2.3-4.7 [id number] 04:19:00 Test Item Value Reference Range Comments MAGNESIUM (BEAKER) (test code = 627) 1.9 mg/dL 1.6-2.6 [id number] 04:19:00 Test Item Value Reference Range Comments CALCIUM (BEAKER) (test code = 697) 8.6 mg/dL 8.4-10.2 BASIC METABOLIC [id number] 04:19:00 Test Item Value Reference Range Comments SODIUM (BEAKER) (test 136 meq/L 136-145 code = 381) POTASSIUM (BEAKER) (test 4.2 meq/L 3.5-5.1 code = 379) CHLORIDE (BEAKER) (test 102 meq/L 98-107 code = 382) CO2 (BEAKER) (test code = 25 meq/L 22-29 355) BLOOD UREA NITROGEN 24 mg/dL 7-21 (BEAKER) (test code = 354) CREATININE (BEAKER) (test 1.80 mg/dL 0.57-1.25 code = 358) GLUCOSE RANDOM (BEAKER) 188 mg/dL 70-105 (test code = 652) CALCIUM (BEAKER) (test 8.6 mg/dL 8.4-10.2 code = 697) EGFR (BEAKER) (test code 47 mL/min/1.73 sq m EST IMATED GFR IS NOT = 1092) ACCURATE CREA TININE CLEARANCE IN PRE DICTING GLOMERULAR FILTR ATION RATE. ESTIMATED GFR IS NOT APPLICABLE F OR DIALYSIS PATIENT S. Specimen slightly ictericLACTATE DEHYDROGENASE (LDH)2018-01-13 04:19:00 Test Item Value Reference Range Comments LACTATE DEHYDROGENASE (BEAKER) (test code = 635) 1658 U/L 125-220 [id number] 04:16:00 Test Item Value Reference Range Comments FIBRINOGEN LEVEL (BEAKER) (test code = 658) 299 mg/dl 225- 434 LACTIC ACID, ARTERIAL, WHOLE [id number] 04:16:00 Test Item Value Reference Range Comments LACTATE BLOOD ARTERIAL (2) (BEAKER) (test code = 0.8 mmol/L 0.5-2.2 5424) Effective 01/04/2016: Units/Reference Range ChangeNew: 0.5-2.2 mmol/L Previous: 5-20 mg/dLSpecimen slightly ictericPROTHROMBIN TIME/[id number] 04:15:00 Test Item Value Reference Range Comments PROTIME (BEAKER) (test code = 759) 15.8 seconds 11.7-14.7 INR (BEAKER) (test code = 370) 1.3 <=5.9 RECOMMENDED COUMADIN/WARFARIN INR THERAPY RANGESSTANDARD DOSE: 2.0 - 3.0 Includes: PROPHYLAXIS forvenous thrombosis, systemic embolization; TREATMENT for venous thrombosis and/or pulmonary embolus.HIGH RISK: Target INR is 2.5-3.5 for patients with mechanical heart valves.CALCIUM, [id number] 04:04:00 Test Item Value Reference Range Comments CALCIUM IONIZED (BEAKER) (test code = 698) 1.15 mmol/L 1.12- 1.27 PH, BLOOD (BEAKER) (test code = 1810) 7.33 BLOOD GAS, [id number] 04:03:00 Test Item Value Reference Range Comments PH ARTERIAL (BEAKER) (test code = 383) 7.33 7.35-7.45 PCO2 ARTERIAL (BEAKER) (test code = 384) 55 mmHg 35-45 PO2 ARTERIAL (BEAKER) (test code = 385) 324 mmHg 80-90 O2 SATURATION ARTERIAL (BEAKER) (test code = 386) 99.7 % 96.0-97.0 HCO3 ARTERIAL (BEAKER) (test code = 388) 28 mmol/L 21-29 BASE EXCESS ARTERIAL (BEAKER) (test code = 387) 1.8 mmol/L -2.0-3.0 PATIENT TEMPERATURE (BEAKER) (test code = 1818) 36.8 C FIO2 (BEAKER) (test code = 1819) 40.0 % PLATELET [id number] 03:58:00 Test Item Value Reference Range Comments PLATELET COUNT (BEAKER) (test code = 756) 89 K/CU MM 150-45 0 OXYGEN SATURATION, [id number] 03:57:00 Test Item Value Reference Range Comments O2 SATURATION (MEASURED) (BEAKER) (test code = 1455) 79.4 % BLOOD GAS, [id number] 01:19:00 Test Item Value Reference Range Comments PH ARTERIAL (BEAKER) (test code = 383) 7.47 7.35-7.45 PCO2 ARTERIAL (BEAKER) (test code = 384) 36 mmHg 35-45 PO2 ARTERIAL (BEAKER) (test code = 385) 328 mmHg 80-90 O2 SATURATION ARTERIAL (BEAKER) (test code = 386) 99.8 % 96.0-97.0 HCO3 ARTERIAL (BEAKER) (test code = 388) 26 mmol/L 21-29 BASE EXCESS ARTERIAL (BEAKER) (test code = 387) 1.8 mmol/L -2.0-3.0 PATIENT TEMPERATURE (BEAKER) (test code = 1818) 36.6 C FIO2 (BEAKER) (test code = 1819) 40.0 % GLUCOSE-STAT [id number] 01:19:00 Test Item Value Reference Range Comments GLUCOSE RANDOM (BEAKER) (test code = 652) 177 mg/dL 70-110 POTASSIUM-STAT [id number] 01:18:00 Test Item Value Reference Range Comments POTASSIUM (BEAKER) (test code = 379) 4.0 meq/L 3.6-5.5 CALCIUM, [id number] 01:17:00 Test Item Value Reference Range Comments CALCIUM IONIZED (BEAKER) (test code = 698) 1.13 mmol/L 1.12- 1.27 PH, BLOOD (BEAKER) (test code = 1810) 7.46 THROMBOELASTOGRAPH (TEG)2018-01-12 20:40:00 Test Item Value Reference Range Comments TEG ACTIVATED CLOTTING TIME (BEAKER) (test code 12.3 minutes 4.0-7.0 = 1407) TEG FIBRINOGEN ACTIVITY (BEAKER) (test code = 56.6 degrees 61 .0-73.0 1408) TEG PLT. AGGREGATION (BEAKER) (test code = 56.6 MM 55.0- 65.0 1409) TEG FIBRINOLYSIS (BEAKER) (test code = 1410) 6.6 % 0.0 -5.0 TGH ACTIVATED CLOTTING TIME (BEAKER) (test code 6.4 minutes 4.0-7.0 = 1411) TGH FIBRINOGEN ACTIVITY (BEAKER) (test code = 71.3 degrees 61 .0-73.0 1412) TGH PLT. AGGREGATION (BEAKER) (test code = 60.5 MM 55.0- 65.0 1413) TGH FIBRINOLYSIS (BEAKER) (test code = 1414) 0.0 % 0.0 -5.0 [id number] 20:36:00 Test Item Value Reference Range Comments POTASSIUM (BEAKER) (test code = 379) 4.2 meq/L 3.5-5.1 [id number] 20:36:00 Test Item Value Reference Range Comments MAGNESIUM (BEAKER) (test code = 627) 1.8 mg/dL 1.6-2.6 [id number] 20:36:00 Test Item Value Reference Range Comments PHOSPHORUS (BEAKER) (test code = 604) 3.5 mg/dL 2.3-4.7 LACTIC ACID, ARTERIAL, WHOLE [id number] 20:33:00 Test Item Value Reference Range Comments LACTATE BLOOD ARTERIAL (2) (BEAKER) (test code = 0.8 mmol/L 0.5-2.2 2874) Effective 01/04/2016: Units/Reference Range ChangeNew: 0.5-2.2 mmol/L Previous: 5-20 mg/dLSpecimen slightly ictericBLOOD GAS, [id number] 20:20:00 Test Item Value Reference Range Comments PH ARTERIAL (BEAKER) (test code = 383) 7.45 7.35-7.45 PCO2 ARTERIAL (BEAKER) (test code = 384) 39 mmHg 35-45 PO2 ARTERIAL (BEAKER) (test code = 385) 289 mmHg 80-90 O2 SATURATION ARTERIAL (BEAKER) (test code = 386) 99.7 % 96.0-97.0 HCO3 ARTERIAL (BEAKER) (test code = 388) 27 mmol/L 21-29 BASE EXCESS ARTERIAL (BEAKER) (test code = 387) 2.5 mmol/L -2.0-3.0 PATIENT TEMPERATURE (BEAKER) (test code = 1818) 36.8 C FIO2 (BEAKER) (test code = 1819) 40.0 % GLUCOSE-STAT [id number] 20:20:00 Test Item Value Reference Range Comments GLUCOSE RANDOM (BEAKER) (test code = 652) 180 mg/dL 70-110 [id number] 18:34:00 Test Item Value Reference Range Comments GLUCOSE RANDOM (BEAKER) (test code = 652) 218 mg/dL 70-105 BLOOD GAS, [id number] 18:18:00 Test Item Value Reference Range Comments PH ARTERIAL (BEAKER) (test code = 383) 7.44 7.35-7.45 PCO2 ARTERIAL (BEAKER) (test code = 384) 40 mmHg 35-45 PO2 ARTERIAL (BEAKER) (test code = 385) 321 mmHg 80-90 O2 SATURATION ARTERIAL (BEAKER) (test code = 386) 99.7 % 96.0-97.0 HCO3 ARTERIAL (BEAKER) (test code = 388) 27 mmol/L 21-29 BASE EXCESS ARTERIAL (BEAKER) (test code = 387) 2.4 mmol/L -2.0-3.0 PATIENT TEMPERATURE (BEAKER) (test code = 1818) 36.9 C FIO2 (BEAKER) (test code = 1819) 40.0 % [id number] 17:12:00 Test Item Value Reference Range Comments PARTIAL THROMBOPLASTIN TIME (BEAKER) (test code 54.1 seconds 22.5-36.0 = 760) [id number] 17:12:00 Test Item Value Reference Range Comments FIBRINOGEN LEVEL (BEAKER) (test code = 658) 285 mg/dl 225- 434 PROTHROMBIN TIME/[id number] 17:10:00 Test Item Value Reference Range Comments PROTIME (BEAKER) (test code = 759) 19.8 seconds 11.7-14.7 INR (BEAKER) (test code = 370) 1.7 <=5.9 RECOMMENDED COUMADIN/WARFARIN INR THERAPY RANGESSTANDARD DOSE: 2.0 - 3.0 Includes: PROPHYLAXIS forvenous thrombosis, systemic embolization; TREATMENT for venous thrombosis and/or pulmonary embolus.HIGH RISK: Target INR is 2.5-3.5 for patients with mechanical heart valves.LACTIC ACID, ARTERIAL, WHOLE BLOOD 2018-01-12 17:03:00 Test Item Value Reference Range Comments LACTATE BLOOD ARTERIAL (2) (BEAKER) (test code = 0.8 mmol/L 0.5-2.2 2874) Effective 01/04/2016: Units/Reference Range ChangeNew: 0.5-2.2 mmol/L Previous: 5-20 mg/dLSpecimen slightly [id number] 17:01:00 Test Item Value Reference Range Comments POTASSIUM (BEAKER) (test code = 379) 4.5 meq/L 3.5-5.1 [id number] 17:01:00 Test Item Value Reference Range Comments GLUCOSE RANDOM (BEAKER) (test code = 652) 239 mg/dL 70-105 PLATELET [id number] 16:46:00 Test Item Value Reference Range Comments PLATELET COUNT (BEAKER) (test code = 756) 86 K/CU MM 150-45 0 BLOOD GAS, [id number] 16:36:00 Test Item Value Reference Range Comments PH ARTERIAL (BEAKER) (test code = 383) 7.46 7.35-7.45 PCO2 ARTERIAL (BEAKER) (test code = 384) 39 mmHg 35-45 PO2 ARTERIAL (BEAKER) (test code = 385) 256 mmHg 80-90 O2 SATURATION ARTERIAL (BEAKER) (test code = 386) 99.6 % 96.0-97.0 HCO3 ARTERIAL (BEAKER) (test code = 388) 27 mmol/L 21-29 BASE EXCESS ARTERIAL (BEAKER) (test code = 387) 3.2 mmol/L -2.0-3.0 PATIENT TEMPERATURE (BEAKER) (test code = 1818) 37.0 C CALCIUM, [id number] 16:36:00 Test Item Value Reference Range Comments CALCIUM IONIZED (BEAKER) (test code = 698) 1.08 mmol/L 1.12- 1.27 PH, BLOOD (BEAKER) (test code = 1810) 7.46 [id number] 15:00:00 Test Item Value Reference Range Comments POTASSIUM (BEAKER) (test code = 379) 4.7 meq/L 3.5-5.1 [id number] 15:00:00 Test Item Value Reference Range Comments GLUCOSE RANDOM (BEAKER) (test code = 652) 210 mg/dL 70-105 BLOOD GAS, [id number] 14:42:00 Test Item Value Reference Range Comments PH ARTERIAL (BEAKER) (test code = 383) 7.45 7.35-7.45 PCO2 ARTERIAL (BEAKER) (test code = 384) 41 mmHg 35-45 PO2 ARTERIAL (BEAKER) (test code = 385) 308 mmHg 80-90 O2 SATURATION ARTERIAL (BEAKER) (test code = 386) 99.7 % 96.0-97.0 HCO3 ARTERIAL (BEAKER) (test code = 388) 28 mmol/L 21-29 BASE EXCESS ARTERIAL (BEAKER) (test code = 387) 3.7 mmol/L -2.0-3.0 PATIENT TEMPERATURE (BEAKER) (test code = 1818) 36.8 C FIO2 (BEAKER) (test code = 1819) 40.0 % RAD, CHEST, 1 VIEW, NON [id number] 14:41:00Reason for exam:->chest tube insertionFINAL REPORT CHEST ONE VIEW HISTORY: Status post chest tube placement COMPARISON: 01/12/2018 FINDINGS: Single portable AP examination of the chest was performed. Interval placement of of a left-sided chest tube. Interval resolution of the previously visualized left pleural effusi on layering out. No pneumothorax is identified. Right-sided [...] prosthetic cardiac valve is present. Signed: Kay [place] Verified Date/Time: 01/12/2018 14:41:22 Reading Location: [facility] [id number] Transitional Reading Room MBOELASTOGRAPH (TEG)2018-01-12 12:43:00 Test Item Value Reference Range Comments TEG ACTIVATED CLOTTING TIME (BEAKER) (test code 30.7 minutes 4.0-7.0 = 1407) TEG FIBRINOGEN ACTIVITY (BEAKER) (test code = 23.3 degrees 61 .0-73.0 1408) TEG PLT. AGGREGATION (BEAKER) (test code = 54.6 MM 55.0- 65.0 1409) TEG FIBRINOLYSIS (BEAKER) (test code = 1410) 0.0 % 0.0 -5.0 TGH ACTIVATED CLOTTING TIME (BEAKER) (test code 11.6 minutes 4.0-7.0 = 1411) TGH FIBRINOGEN ACTIVITY (BEAKER) (test code = 58.6 degrees 61 .0-73.0 1412) TGH PLT. AGGREGATION (BEAKER) (test code = 52.2 MM 55.0- 65.0 1413) TGH FIBRINOLYSIS (BEAKER) (test code = 1414) 0.0 % 0.0 -5.0 [id number] 11:23:00 Test Item Value Reference Range Comments D-DIMER QUANTITATIVE (BEAKER) (test code = 1.67 MG/L FEU <0.50 671) Intended Use: The D-Dimer Assay can be used to aid in the diagnosis of Deep Vein Thrombosis (DVT) and Pulmonary Embolism Disease (PED).In patients with low pre- test probability, various studies concerning STA Liatest D-dimer test have reported that with a cutoff value of 0.50 MG/L FEU, the Negative Predictive Value (NPV) regarding the exclusion of thrombosis is within 95-100% range. [id number] 10:10:00 Test Item Value Reference Range Comments MAGNESIUM (BEAKER) (test code = 2.1 mg/dL 1.6-2.6 Specimen slightly hemolyzed 627) [id number] 10:10:00 Test Item Value Reference Range Comments PHOSPHORUS (BEAKER) (test code 4.2 mg/dL 2.3-4.7 S pecimen slightly hemolyzed = 604) [id number] 10:10:00 Test Item Value Reference Range Comments POTASSIUM (BEAKER) (test code = 5.0 meq/L 3.5-5.1 Specimen slightly hemolyzed 379) [id number] 10:10:00 Test Item Value Reference Range Comments GLUCOSE RANDOM (BEAKER) (test code = 652) 204 mg/dL 70-105 [id number] 10:07:00 Test Item Value Reference Range Comments FIBRINOGEN LEVEL (BEAKER) (test code = 658) 251 mg/dl 225- 434 ANTITHROMBIN [id number] 10:04:00 Test Item Value Reference Range Comments ANTITHROMBIN III ACTIVITY (BEAKER) (test code = 711) 46.0 % 80.0-120.0 [id number] 09:58:00 Test Item Value Reference Range Comments PARTIAL THROMBOPLASTIN TIME (BEAKER) (test code 59.8 seconds 22.5-36.0 = 760) PROTHROMBIN TIME/[id number] 09:57:00 Test Item Value Reference Range Comments PROTIME (BEAKER) (test code = 759) 19.3 seconds 11.7-14.7 INR (BEAKER) (test code = 370) 1.6 <=5.9 RECOMMENDED COUMADIN/WARFARIN INR THERAPY RANGESSTANDARD DOSE: 2.0 - 3.0 Includes: PROPHYLAXIS forvenous thrombosis, systemic embolization; TREATMENT for venous thrombosis and/or pulmonary embolus.HIGH RISK: Target INR is 2.5-3.5 for patients with mechanical heart valves.PLATELET [id number] 09:49:00 Test Item Value Reference Range Comments PLATELET COUNT (BEAKER) (test code = 756) 94 K/CU MM 150-45 0 BLOOD GAS, [id number] 09:47:00 Test Item Value Reference Range Comments PH ARTERIAL (BEAKER) (test code = 383) 7.47 7.35-7.45 PCO2 ARTERIAL (BEAKER) (test code = 384) 38 mmHg 35-45 PO2 ARTERIAL (BEAKER) (test code = 385) 259 mmHg 80-90 O2 SATURATION ARTERIAL (BEAKER) (test code = 386) 99.6 % 96.0-97.0 HCO3 ARTERIAL (BEAKER) (test code = 388) 27 mmol/L 21-29 BASE EXCESS ARTERIAL (BEAKER) (test code = 387) 3.2 mmol/L -2.0-3.0 PATIENT TEMPERATURE (BEAKER) (test code = 1818) 36.9 C FIO2 (BEAKER) (test code = 1819) 40.0 % CALCIUM, [id number] 09:46:00 Test Item Value Reference Range Comments CALCIUM IONIZED (BEAKER) (test code = 698) 1.12 mmol/L 1.12- 1.27 PH, BLOOD (BEAKER) (test code = 1810) 7.47 HEPARIN ASSAY - [id number] 08:21:00 Test Item Value Reference Range Comments UNFRACTIONATED HEPARIN-ANTI 10A (BEAKER) (test code = < u/ml 0.30-0.70 1606) Recommendations for Monitoring Unfractionated Heparin Therapeutic Range: 0.3- 0.7 u/mL with continuous IV infusionLACTATE DEHYDROGENASE (LDH)2018-01-12 07:40:00 Test Item Value Reference Range Comments LACTATE DEHYDROGENASE (BEAKER) (test code = 635) 3247 U/L 125-220 [id number] 07:38:00 Test Item Value Reference Range Comments MAGNESIUM (BEAKER) (test code = 627) 2.3 mg/dL 1.6-2.6 [id number] 07:38:00 Test Item Value Reference Range Comments GLUCOSE RANDOM (BEAKER) (test code = 652) 217 mg/dL 70-105 LACTIC ACID, ARTERIAL, WHOLE [id number] 07:27:00 Test Item Value Reference Range Comments LACTATE BLOOD ARTERIAL (2) (BEAKER) (test code = 1.4 mmol/L 0.5-2.2 2874) Effective 01/04/2016: Units/Reference Range ChangeNew: 0.5-2.2 mmol/L Previous: 5-20 mg/dLSpecimen slightly ictericGLUCOSE-STAT [id number] 06:55:00 Test Item Value Reference Range Comments GLUCOSE RANDOM (BEAKER) (test code = 652) 212 mg/dL 70-110 BLOOD GAS, [id number] 06:55:00 Test Item Value Reference Range Comments PH ARTERIAL (BEAKER) (test code = 383) 7.44 7.35-7.45 PCO2 ARTERIAL (BEAKER) (test code = 384) 40 mmHg 35-45 PO2 ARTERIAL (BEAKER) (test code = 385) 259 mmHg 80-90 O2 SATURATION ARTERIAL (BEAKER) (test code = 386) 99.6 % 96.0-97.0 HCO3 ARTERIAL (BEAKER) (test code = 388) 26 mmol/L 21-29 BASE EXCESS ARTERIAL (BEAKER) (test code = 387) 2.1 mmol/L -2.0-3.0 PATIENT TEMPERATURE (BEAKER) (test code = 1818) 36.7 C FIO2 (BEAKER) (test code = 1819) 40.0 % POTASSIUM-STAT [id number] 06:52:00 Test Item Value Reference Range Comments POTASSIUM (BEAKER) (test code = 379) 4.8 meq/L 3.6-5.5 BLOOD GAS, [id number] 06:43:00 Test Item Value Reference Range Comments PH ARTERIAL (BEAKER) (test code = 383) 7.33 7.35-7.45 PCO2 ARTERIAL (BEAKER) (test code = 384) 55 mmHg 35-45 PO2 ARTERIAL (BEAKER) (test code = 385) 475 mmHg 80-90 O2 SATURATION ARTERIAL (BEAKER) (test code = 386) 99.8 % 96.0-97.0 HCO3 ARTERIAL (BEAKER) (test code = 388) 28 mmol/L 21-29 BASE EXCESS ARTERIAL (BEAKER) (test code = 387) 0.8 mmol/L -2.0-3.0 PATIENT TEMPERATURE (BEAKER) (test code = 1818) 36.7 C FIO2 (BEAKER) (test code = 1819) 100.0 % RAD, CHEST, 1 VIEW, NON [id number] 06:14:00Reason for exam:- >impella/ECMO/intubationShould this be performed at the bedside?->YesFINAL REPORT [...] Taylor Verified Date/Time: 01/12/2018 06:14:29 Reading Location: [facility] [id number] Transitional Reading Room LACTATE DEHYDROGENASE (LDH)2018-01-12 05:03:00 Test Item Value Reference Range Comments LACTATE DEHYDROGENASE (BEAKER) (test code = 635) 3014 U/L 125-220 HEPATIC FUNCTION [id number] 05:03:00 Test Item Value Reference Range Comments TOTAL PROTEIN (BEAKER) (test code = 770) 4.8 gm/dL 6.0-8.3 ALBUMIN (BEAKER) (test code = 1145) 2.7 g/dL 3.5-5.0 BILIRUBIN TOTAL (BEAKER) (test code = 377) 4.3 mg/dL 0.2-1 .2 BILIRUBIN DIRECT (BEAKER) (test code = 706) 3.2 mg/dL 0.1- 0.5 ALKALINE PHOSPHATASE (BEAKER) (test code = 346) 43 U/L 40-150 AST (SGOT) (BEAKER) (test code = 353) 2716 U/L 5-34 ALT (SGPT) (BEAKER) (test code = 347) 1544 U/L 6-55 Specimen slightly [id number] 05:01:00 Test Item Value Reference Range Comments PHOSPHORUS (BEAKER) (test code = 604) 5.0 mg/dL 2.3-4.7 [id number] 05:01:00 Test Item Value Reference Range Comments MAGNESIUM (BEAKER) (test code = 627) 2.1 mg/dL 1.6-2.6 [id number] 05:01:00 Test Item Value Reference Range Comments CALCIUM (BEAKER) (test code = 697) 8.5 mg/dL 8.4-10.2 BASIC METABOLIC [id number] 05:01:00 Test Item Value Reference Range Comments SODIUM (BEAKER) (test 137 meq/L 136-145 code = 381) POTASSIUM (BEAKER) (test 5.1 meq/L 3.5-5.1 code = 379) CHLORIDE (BEAKER) (test 103 meq/L 98-107 code = 382) CO2 (BEAKER) (test code = 24 meq/L 22-29 355) BLOOD UREA NITROGEN 25 mg/dL 7-21 (BEAKER) (test code = 354) CREATININE (BEAKER) (test 2.54 mg/dL 0.57-1.25 code = 358) GLUCOSE RANDOM (BEAKER) 208 mg/dL 70-105 (test code = 652) CALCIUM (BEAKER) (test 8.5 mg/dL 8.4-10.2 code = 697) EGFR (BEAKER) (test code 32 mL/min/1.73 sq m EST IMATED GFR IS NOT = 1092) ACCURATE CREA TININE CLEARANCE IN PRE DICTING GLOMERULAR FILTR ATION RATE. ESTIMATED GFR IS NOT APPLICABLE F OR DIALYSIS PATIENT S. Specimen slightly ictericLACTIC ACID, ARTERIAL, WHOLE [id number] 04:42:00 Test Item Value Reference Range Comments LACTATE BLOOD ARTERIAL (2) (BEAKER) (test code = 1.5 mmol/L 0.5-2.2 2874) Effective 01/04/2016: Units/Reference Range ChangeNew: 0.5-2.2 mmol/L Previous: 5-20 mg/dLSpecimen slightly [id number] 04:38:00 Test Item Value Reference Range Comments FIBRINOGEN LEVEL (BEAKER) (test code = 658) 252 mg/dl 225- 434 [id number] 04:38:00 Test Item Value Reference Range Comments PARTIAL THROMBOPLASTIN TIME (BEAKER) (test code 54.6 seconds 22.5-36.0 = 760) CBC W/PLT COUNT & AUTO [id number] 04:37:00 Test Item Value Reference Range Comments WHITE BLOOD CELL COUNT (BEAKER) (test code = 10.9 K/ L 3.5 -10.5 775) RED BLOOD CELL COUNT (BEAKER) (test code = 761) 2.74 M/ L 4.63-6.08 HEMOGLOBIN (BEAKER) (test code = 410) 8.7 GM/DL 13.7-17.5 HEMATOCRIT (BEAKER) (test code = 411) 25.8 % 40.1-51.0 MEAN CORPUSCULAR VOLUME (BEAKER) (test code = 94.2 fL 79 .0-92.2 753) MEAN CORPUSCULAR HEMOGLOBIN (BEAKER) (test code 31.8 pg 25.7-32.2 = 751) MEAN CORPUSCULAR HEMOGLOBIN CONC (BEAKER) (test 33.7 GM/DL 32.3-36.5 code = 752) RED CELL DISTRIBUTION WIDTH (BEAKER) (test code 18.6 % 11.6-14.4 = 412) PLATELET COUNT (BEAKER) (test code = 756) 110 K/CU MM 150-45 0 MEAN PLATELET VOLUME (BEAKER) (test code = 754) 11.8 fL 9.4-12.4 NUCLEATED RED BLOOD CELLS (BEAKER) (test code = 3 /100 WBC 0-0 413) NEUTROPHILS RELATIVE PERCENT (BEAKER) (test code 91 % = 429) LYMPHOCYTES RELATIVE PERCENT (BEAKER) (test code 3 % = 430) MONOCYTES RELATIVE PERCENT (BEAKER) (test code = 5 % 431) EOSINOPHILS RELATIVE PERCENT (BEAKER) (test code 0 % = 432) BASOPHILS RELATIVE PERCENT (BEAKER) (test code = 0 % 437) NEUTROPHILS ABSOLUTE COUNT (BEAKER) (test code = 9.98 K/ L 1.78-5.38 670) LYMPHOCYTES ABSOLUTE COUNT (BEAKER) (test code = 0.31 K/ L 1.32-3.57 414) MONOCYTES ABSOLUTE COUNT (BEAKER) (test code = 0.55 K/ L 0 .30-0.82 415) EOSINOPHILS ABSOLUTE COUNT (BEAKER) (test code = 0.00 K/ L 0.04-0.54 416) BASOPHILS ABSOLUTE COUNT (BEAKER) (test code = 0.02 K/ L 0 .01-0.08 417) IMMATURE GRANULOCYTES-RELATIVE PERCENT (BEAKER) 1 % 0-1 (test code = 2801) PROTHROMBIN [id number] 04:37:00 Test Item Value Reference Range Comments PROTIME (BEAKER) (test code = 759) 19.9 seconds 11.7-14.7 INR (BEAKER) (test code = 370) 1.7 <=5.9 RECOMMENDED COUMADIN/WARFARIN INR THERAPY RANGESSTANDARD DOSE: 2.0 - 3.0 Includes: PROPHYLAXIS forvenous thrombosis, systemic embolization; TREATMENT for venous thrombosis and/or pulmonary embolus.HIGH RISK: Target INR is 2.5-3.5 for patients with mechanical heart valves.CALCIUM, [id number] 04:31:00 Test Item Value Reference Range Comments CALCIUM IONIZED (BEAKER) (test code = 698) 1.12 mmol/L 1.12- 1.27 PH, BLOOD (BEAKER) (test code = 1810) 7.42 BLOOD GAS, [id number] 04:30:00 Test Item Value Reference Range Comments PH ARTERIAL (BEAKER) (test code = 383) 7.42 7.35-7.45 PCO2 ARTERIAL (BEAKER) (test code = 384) 41 mmHg 35-45 PO2 ARTERIAL (BEAKER) (test code = 385) 226 mmHg 80-90 O2 SATURATION ARTERIAL (BEAKER) (test code = 386) 99.5 % 96.0-97.0 HCO3 ARTERIAL (BEAKER) (test code = 388) 26 mmol/L 21-29 BASE EXCESS ARTERIAL (BEAKER) (test code = 387) 1.6 mmol/L -2.0-3.0 PATIENT TEMPERATURE (BEAKER) (test code = 1818) 36.8 C FIO2 (BEAKER) (test code = 1819) 40.0 % PLATELET [id number] 04:23:00 Test Item Value Reference Range Comments PLATELET COUNT (BEAKER) (test code = 756) 110 K/CU MM 150-45 0 OXYGEN SATURATION, [id number] 04:14:00 Test Item Value Reference Range Comments O2 SATURATION (MEASURED) (BEAKER) (test code = 1455) 79.7 % [id number] 02:54:00 Test Item Value Reference Range Comments PARTIAL THROMBOPLASTIN TIME (BEAKER) (test 134.3 seconds 22.5- 36.0 code = 760) [id number] 02:25:00 Test Item Value Reference Range Comments PARTIAL THROMBOPLASTIN TIME (BEAKER) (test code 94.0 seconds 22.5-36.0 = 760) BLOOD GAS, [id number] 01:56:00 Test Item Value Reference Range Comments PH ARTERIAL (BEAKER) (test code = 383) 7.61 7.35-7.45 PCO2 ARTERIAL (BEAKER) (test code = 384) 25 mmHg 35-45 PO2 ARTERIAL (BEAKER) (test code = 385) 209 mmHg 80-90 O2 SATURATION ARTERIAL (BEAKER) (test code = 386) 99.6 % 96.0-97.0 HCO3 ARTERIAL (BEAKER) (test code = 388) 25 mmol/L 21-29 BASE EXCESS ARTERIAL (BEAKER) (test code = 387) 3.4 mmol/L -2.0-3.0 PATIENT TEMPERATURE (BEAKER) (test code = 1818) 36.5 C FIO2 (BEAKER) (test code = 1819) 40.0 % GLUCOSE-STAT [id number] 01:53:00 Test Item Value Reference Range Comments GLUCOSE RANDOM (BEAKER) (test code = 652) 201 mg/dL 70-110 POTASSIUM-STAT [id number] 01:52:00 Test Item Value Reference Range Comments POTASSIUM (BEAKER) (test code = 379) 4.9 meq/L 3.6-5.5 LACTIC ACID, ARTERIAL, WHOLE [id number] 01:18:00 Test Item Value Reference Range Comments LACTATE BLOOD ARTERIAL (2) (BEAKER) (test code = 2.0 mmol/L 0.5-2.2 2874) Effective 01/04/2016: Units/Reference Range ChangeNew: 0.5-2.2 mmol/L Previous: 5-20 mg/dLSpecimen slightly [id number] 01:18:00 Test Item Value Reference Range Comments POTASSIUM (BEAKER) (test code = 379) 5.1 meq/L 3.5-5.1 [id number] 01:18:00 Test Item Value Reference Range Comments GLUCOSE RANDOM (BEAKER) (test code = 652) 194 mg/dL 70-105 PROTHROMBIN [id number] 01:15:00 Test Item Value Reference Range Comments PROTIME (BEAKER) (test code = 759) 21.2 seconds 11.7-14.7 INR (BEAKER) (test code = 370) 1.8 <=5.9 RECOMMENDED COUMADIN/WARFARIN INR THERAPY RANGESSTANDARD DOSE: 2.0 - 3.0 Includes: PROPHYLAXIS forvenous thrombosis, systemic embolization; TREATMENT for venous thrombosis and/or pulmonary embolus.HIGH RISK: Target INR is 2.5-3.5 for patients with mechanical heart valves.[id number] 01:15:00 Test Item Value Reference Range Comments FIBRINOGEN LEVEL (BEAKER) (test code = 658) 233 mg/dl 225- 434 PLATELET [id number] 01:01:00 Test Item Value Reference Range Comments PLATELET COUNT (BEAKER) (test code = 756) 84 K/CU MM 150-45 0 BLOOD GAS, [id number] 01:00:00 Test Item Value Reference Range Comments PH ARTERIAL (BEAKER) (test code = 383) 7.43 7.35-7.45 PCO2 ARTERIAL (BEAKER) (test code = 384) 40 mmHg 35-45 PO2 ARTERIAL (BEAKER) (test code = 385) 285 mmHg 80-90 O2 SATURATION ARTERIAL (BEAKER) (test code = 386) 99.7 % 96.0-97.0 HCO3 ARTERIAL (BEAKER) (test code = 388) 26 mmol/L 21-29 BASE EXCESS ARTERIAL (BEAKER) (test code = 387) 1.7 mmol/L -2.0-3.0 PATIENT TEMPERATURE (BEAKER) (test code = 1818) 36.7 C FIO2 (BEAKER) (test code = 1819) 40.0 % CALCIUM, [id number] 01:00:00 Test Item Value Reference Range Comments CALCIUM IONIZED (BEAKER) (test code = 698) 1.08 mmol/L 1.12- 1.27 PH, BLOOD (BEAKER) (test code = 1810) 7.43 THROMBOELASTOGRAPH (TEG)2018-01-12 00:01:00 Test Item Value Reference Range Comments TEG ACTIVATED CLOTTING TIME (BEAKER) minutes 4.0-7.0 No clot detected (test code = 1407) TGH ACTIVATED CLOTTING TIME (BEAKER) 13.3 minutes 4.0-7.0 (test code = 1411) [facility] FIBRINOGEN ACTIVITY (BEAKER) (test 44.7 degrees 61.0-73.0 code = 1412) [facility] PLT. AGGREGATION (BEAKER) (test 46.3 MM 55.0-65.0 code = 1413) [facility]GH FIBRINOLYSIS (BEAKER) (test code = 0.0 % 0.0-5.0 1414) GLUCOSE-STAT [id number] 23:53:00 Test Item Value Reference Range Comments GLUCOSE RANDOM (BEAKER) (test code = 652) 182 mg/dL 70-110 BLOOD GAS, [id number] 23:52:00 Test Item Value Reference Range Comments PH ARTERIAL (BEAKER) (test code = 383) 7.52 7.35-7.45 PCO2 ARTERIAL (BEAKER) (test code = 384) 31 mm Hg 35-45 PO2 ARTERIAL (BEAKER) (test code = 385) 280 mm Hg 80-90 O2 SATURATION ARTERIAL (BEAKER) (test code = 386) 99.7 % 96.0-97.0 HCO3 ARTERIAL (BEAKER) (test code = 388) 25 mmol/L 21-29 BASE EXCESS ARTERIAL (BEAKER) (test code = 387) 2.3 mmol/L -2.0-3.0 PATIENT TEMPERATURE (BEAKER) (test code = 1818) 36.7 FIO2 (BEAKER) (test code = 1819) 40 [id number] 23:05:00 Test Item Value Reference Range Comments PARTIAL THROMBOPLASTIN TIME (BEAKER) (test code = > seconds 22.5-36.0 760) BLOOD GAS, [id number] 23:01:00 Test Item Value Reference Range Comments PH ARTERIAL (BEAKER) (test code = 383) 7.42 7.35-7.45 PCO2 ARTERIAL (BEAKER) (test code = 384) 44 mmHg 35-45 PO2 ARTERIAL (BEAKER) (test code = 385) 541 mmHg 80-90 O2 SATURATION ARTERIAL (BEAKER) (test code = 386) 99.9 % 96.0-97.0 HCO3 ARTERIAL (BEAKER) (test code = 388) 28 mmol/L 21-29 BASE EXCESS ARTERIAL (BEAKER) (test code = 387) 2.6 mmol/L -2.0-3.0 PATIENT TEMPERATURE (BEAKER) (test code = 1818) 37.0 C FIO2 (BEAKER) (test code = 1819) 100.0 % [id number] 22:46:00 Test Item Value Reference Range Comments FIBRINOGEN LEVEL (BEAKER) (test code = 658) 223 mg/dl 225- 434 PROTHROMBIN TIME/[id number] 22:45:00 Test Item Value Reference Range Comments PROTIME (BEAKER) (test code = 759) 23.0 seconds 11.7-14.7 INR (BEAKER) (test code = 370) 2.0 <=5.9 RECOMMENDED COUMADIN/WARFARIN INR THERAPY RANGESSTANDARD DOSE: 2.0 - 3.0 Includes: PROPHYLAXIS forvenous thrombosis, systemic embolization; TREATMENT for venous thrombosis and/or pulmonary embolus.HIGH RISK: Target INR is 2.5-3.5 for patients with mechanical heart valves.BLOOD GAS, [id number] 22:22:00 Test Item Value Reference Range Comments PH ARTERIAL (BEAKER) (test code = 383) 7.67 7.35-7.45 PCO2 ARTERIAL (BEAKER) (test code = 384) 20 mmHg 35-45 PO2 ARTERIAL (BEAKER) (test code = 385) 261 mmHg 80-90 O2 SATURATION ARTERIAL (BEAKER) (test code = 386) 99.8 % 96.0-97.0 HCO3 ARTERIAL (BEAKER) (test code = 388) 23 mmol/L 21-29 BASE EXCESS ARTERIAL (BEAKER) (test code = 387) 2.6 mmol/L -2.0-3.0 PATIENT TEMPERATURE (BEAKER) (test code = 1818) 35.8 C FIO2 (BEAKER) (test code = 1819) 40.0 % CALCIUM, [id number] 22:21:00 Test Item Value Reference Range Comments CALCIUM IONIZED (BEAKER) (test code = 698) 1.05 mmol/L 1.12- 1.27 PH, BLOOD (BEAKER) (test code = 1810) 7.67 PLATELET [id number] 22:21:00 Test Item Value Reference Range Comments PLATELET COUNT (BEAKER) (test code = 756) 71 K/CU MM 150-45 0 GLUCOSE-STAT [id number] 22:20:00 Test Item Value Reference Range Comments GLUCOSE RANDOM (BEAKER) (test code = 652) 189 mg/dL 70-110 POTASSIUM-STAT [id number] 22:19:00 Test Item Value Reference Range Comments POTASSIUM (BEAKER) (test code = 379) 5.1 meq/L 3.6-5.5 THROMBOELASTOGRAPH (TEG)2018-01-11 21:07:00 Test Item Value Reference Range Comments TEG ACTIVATED CLOTTING TIME (BEAKER) minutes 4.0-7.0 No clot detected. (test code = 1407) TEG FIBRINOGEN ACTIVITY (BEAKER) (test degrees 61.0-73.0 No clot detected. code = 1408) TEG PLT. AGGREGATION (BEAKER) (test MM 55.0-65.0 No clot detected. code = 1409) TEG FIBRINOLYSIS (BEAKER) (test code = % 0.0-5.0 No clot detected. 1410) TGH ACTIVATED CLOTTING TIME (BEAKER) 15.3 minutes 4.0-7.0 (test code = 1411) TGH FIBRINOGEN ACTIVITY (BEAKER) (test 42.8 degrees 61.0-73.0 code = 1412) TGH PLT. AGGREGATION (BEAKER) (test 43.9 MM 55.0-65.0 code = 1413) TGH FIBRINOLYSIS (BEAKER) (test code = 0.0 % 0.0-5.0 1414) LACTATE DEHYDROGENASE (LDH)2018-01-11 20:57:00 Test Item Value Reference Range Comments LACTATE DEHYDROGENASE (BEAKER) (test code = 635) 2133 U/L 125-220 [id number] 20:55:00 Test Item Value Reference Range Comments POTASSIUM (BEAKER) (test code = 379) 5.4 meq/L 3.5-5.1 [id number] 20:55:00 Test Item Value Reference Range Comments MAGNESIUM (BEAKER) (test code = 627) 1.6 mg/dL 1.6-2.6 [id number] 20:55:00 Test Item Value Reference Range Comments PHOSPHORUS (BEAKER) (test code = 604) 2.9 mg/dL 2.3-4.7 GLUCOSE-STAT [id number] 20:31:00 Test Item Value Reference Range Comments GLUCOSE RANDOM (BEAKER) (test code = 652) 166 mg/dL 70-110 POTASSIUM-STAT [id number] 20:30:00 Test Item Value Reference Range Comments POTASSIUM (BEAKER) (test code = 379) 5.2 meq/L 3.6-5.5 BLOOD GAS, [id number] 20:30:00 Test Item Value Reference Range Comments PH ARTERIAL (BEAKER) (test code = 383) 7.59 7.35-7.45 PCO2 ARTERIAL (BEAKER) (test code = 384) 24 mmHg 35-45 PO2 ARTERIAL (BEAKER) (test code = 385) 151 mmHg 80-90 O2 SATURATION ARTERIAL (BEAKER) (test code = 386) 99.3 % 96.0-97.0 HCO3 ARTERIAL (BEAKER) (test code = 388) 23 mmol/L 21-29 BASE EXCESS ARTERIAL (BEAKER) (test code = 387) 1.6 mmol/L -2.0-3.0 PATIENT TEMPERATURE (BEAKER) (test code = 1818) 36.5 C FIO2 (BEAKER) (test code = 1819) 40.0 % OXYGEN SATURATION, [id number] 18:46:00 Test Item Value Reference Range Comments O2 SATURATION (MEASURED) (BEAKER) (test code = 1455) 81.5 % RAD, CHEST, 1 VIEW, NON [id number] 18:27:00Reason for exam:->impella/ECMO placementShould this be performed at the bedside?->YesFINAL REPORT INDICATION: impella/ECMO placement COMPARISON: January 11, 2018 at 4: 11 AM TECHNIQUE: Chest radiograph, single view, portable [...] No pneumothorax. Signed: Pedro Xie MDReport Verified Date/Time: 01/11/2018 18:27:33 Reading Location: [facility] B1 [id number] Ortho Consult Reading [id number] 18:11:00 Test Item Value Reference Range Comments PARTIAL THROMBOPLASTIN TIME (BEAKER) (test code = > seconds 22.5-36.0 760) LACTATE DEHYDROGENASE (LDH)2018-01-11 18:09:00 Test Item Value Reference Range Comments LACTATE DEHYDROGENASE (BEAKER) 1590 U/L 125-220 S pecimen slightly hemolyzed (test code = 635) BASIC METABOLIC [id number] 18:08:00 Test Item Value Reference Range Comments SODIUM (BEAKER) (test 139 meq/L 136-145 code = 381) POTASSIUM (BEAKER) (test 6.5 meq/L 3.5-5.1 Specime n slightly code = 379) hemolyzed CHLORIDE (BEAKER) (test 106 meq/L 98-107 code = 382) CO2 (BEAKER) (test code = 15 meq/L 22-29 355) BLOOD UREA NITROGEN 27 mg/dL 7-21 (BEAKER) (test code = 354) CREATININE (BEAKER) (test 3.65 mg/dL 0.57-1.25 Specim en slightly code = 358) hemolyzed GLUCOSE RANDOM (BEAKER) 162 mg/dL 70-105 (test code = 652) CALCIUM (BEAKER) (test 8.8 mg/dL 8.4-10.2 code = 697) EGFR (BEAKER) (test code 21 mL/min/1.73 sq m EST IMATED GFR IS NOT = 1092) ACCURATE CREA TININE CLEARANCE IN PRE DICTING GLOMERULAR FILTR ATION RATE. ESTIMATED GFR IS NOT APPLICABLE F OR DIALYSIS PATIENT S. [id number] 17:54:00 Test Item Value Reference Range Comments MAGNESIUM (BEAKER) (test code = 1.8 mg/dL 1.6-2.6 Specimen slightly hemolyzed 627) [id number] 17:54:00 Test Item Value Reference Range Comments PHOSPHORUS (BEAKER) (test code 4.6 mg/dL 2.3-4.7 S pecimen slightly hemolyzed = 604) LACTIC ACID, ARTERIAL, WHOLE [id number] 17:53:00 Test Item Value Reference Range Comments LACTATE BLOOD ARTERIAL (2) 10.8 mmol/L 0.5-2.2 Speci men slightly hemolyzed (BEAKER) (test code = 2874) Effective 01/04/2016: Units/Reference Range ChangeNew: 0.5-2.2 mmol/L Previous: 5-20 mg/hHS-[id number] 17:46:00 Test Item Value Reference Range Comments D-DIMER QUANTITATIVE (BEAKER) (test code = 0.82 MG/L FEU <0.50 671) Intended Use: The D-Dimer Assay can be used to aid in the diagnosis of Deep Vein Thrombosis (DVT) and Pulmonary Embolism Disease (PED).In patients with low pre- test probability, various studies concerning STA Liatest D-dimer test have reported that with a cutoff value of 0.50 MG/L FEU, the Negative Predictive Value (NPV) regarding the exclusion of thrombosis is within 95-100% range. [id number] 17:46:00 Test Item Value Reference Range Comments FIBRINOGEN LEVEL (BEAKER) (test code = 658) 201 mg/dl 225- 434 PROTHROMBIN [id number] 17:45:00 Test Item Value Reference Range Comments PROTIME (BEAKER) (test code = 759) 24.4 seconds 11.7-14.7 INR (BEAKER) (test code = 370) 2.2 <=5.9 RECOMMENDED COUMADIN/WARFARIN INR THERAPY RANGESSTANDARD DOSE: 2.0 - 3.0 Includes: PROPHYLAXIS forvenous thrombosis, systemic embolization; TREATMENT for venous thrombosis and/or pulmonary embolus.HIGH RISK: Target INR is 2.5-3.5 for patients with mechanical heart valves.BLOOD GAS, [id number] 17:44:00 Test Item Value Reference Range Comments PH ARTERIAL (BEAKER) (test code = 383) 7.52 7.35-7.45 PCO2 ARTERIAL (BEAKER) (test code = 384) 21 mmHg 35-45 PO2 ARTERIAL (BEAKER) (test code = 385) 231 mmHg 80-90 O2 SATURATION ARTERIAL (BEAKER) (test code = 99.6 % 96. 0-97.0 386) HCO3 ARTERIAL (BEAKER) (test code = 388) 17 mmol/L 21-29 BASE EXCESS ARTERIAL (BEAKER) (test code = 387) -4.9 mmol/L -2.0-3.0 PATIENT TEMPERATURE (BEAKER) (test code = 1818) 36.1 C FIO2 (BEAKER) (test code = 1819) 40.0 % SODIUM NA-STAT [id number] 17:44:00 Test Item Value Reference Range Comments SODIUM (BEAKER) (test code = 381) 134 meq/L 135-148 POTASSIUM-STAT [id number] 17:44:00 Test Item Value Reference Range Comments POTASSIUM (BEAKER) (test code = 379) 6.2 meq/L 3.6-5.5 GLUCOSE-STAT [id number] 17:44:00 Test Item Value Reference Range Comments GLUCOSE RANDOM (BEAKER) (test code = 652) 147 mg/dL 70-110 HGB/HCT (H&H) - STAT [id number] 17:44:00 Test Item Value Reference Range Comments HEMOGLOBIN (BEAKER) (test code = 410) 9.9 g/dL 13.0-16.8 HEMATOCRIT (BEAKER) (test code = 411) 29.0 % 40.0-50.0 CALCIUM, [id number] 17:41:00 Test Item Value Reference Range Comments CALCIUM IONIZED (BEAKER) (test code = 698) 1.03 mmol/L 1.12- 1.27 PH, BLOOD (BEAKER) (test code = 1810) 7.52 OXYGEN SATURATION, [id number] 17:39:00 Test Item Value Reference Range Comments O2 SATURATION (MEASURED) (BEAKER) (test code = 1455) 84.5 % CBC W/PLT COUNT & AUTO [id number] 17:37:00 Test Item Value Reference Range Comments WHITE BLOOD CELL COUNT (BEAKER) (test code = 775) 9.3 K/ L 3.5-10.5 RED BLOOD CELL COUNT (BEAKER) (test code = 761) 2.91 M/ L 4.63-6.08 HEMOGLOBIN (BEAKER) (test code = 410) 9.2 GM/DL 13.7-17.5 HEMATOCRIT (BEAKER) (test code = 411) 27.9 % 40.1-51.0 MEAN CORPUSCULAR VOLUME (BEAKER) (test code = 95.9 fL 79 .0-92.2 753) MEAN CORPUSCULAR HEMOGLOBIN (BEAKER) (test code = 31.6 pg 25.7-32.2 751) MEAN CORPUSCULAR HEMOGLOBIN CONC (BEAKER) (test 33.0 GM/DL 32.3-36.5 code = 752) RED CELL DISTRIBUTION WIDTH (BEAKER) (test code = 18.9 % 11.6-14.4 412) PLATELET COUNT (BEAKER) (test code = 756) 88 K/CU MM 150-45 0 MEAN PLATELET VOLUME (BEAKER) (test code = 754) 11.5 fL 9.4-12.4 NUCLEATED RED BLOOD CELLS (BEAKER) (test code = 1 /100 WBC 0-0 413) NEUTROPHILS RELATIVE PERCENT (BEAKER) (test code 91 % = 429) LYMPHOCYTES RELATIVE PERCENT (BEAKER) (test code 3 % = 430) MONOCYTES RELATIVE PERCENT (BEAKER) (test code = 6 % 431) EOSINOPHILS RELATIVE PERCENT (BEAKER) (test code 0 % = 432) BASOPHILS RELATIVE PERCENT (BEAKER) (test code = 0 % 437) NEUTROPHILS ABSOLUTE COUNT (BEAKER) (test code = 8.47 K/ L 1.78-5.38 670) LYMPHOCYTES ABSOLUTE COUNT (BEAKER) (test code = 0.23 K/ L 1.32-3.57 414) MONOCYTES ABSOLUTE COUNT (BEAKER) (test code = 0.53 K/ L 0 .30-0.82 415) EOSINOPHILS ABSOLUTE COUNT (BEAKER) (test code = 0.00 K/ L 0.04-0.54 416) BASOPHILS ABSOLUTE COUNT (BEAKER) (test code = 0.01 K/ L 0 .01-0.08 417) IMMATURE GRANULOCYTES-RELATIVE PERCENT (BEAKER) 0 % 0-1 (test code = 2801) [id number] 16:35:00 Test Item Value Reference Range Comments ACTIVATED CLOTTING TIME 230 sec TESTED A T [facility] [address] (BEAKER) (test code = 441) [place] [address] [id number] 16:35:00 Test Item Value Reference Range Comments ACTIVATED CLOTTING TIME 191 sec TESTED A T [facility] [address] (BEAKER) (test code = 441) [place] [address] BLOOD GAS, [id number] 16:20:00 Test Item Value Reference Range Comments PH ARTERIAL (BEAKER) (test code = 383) 7.37 7.35-7.45 PCO2 ARTERIAL (BEAKER) (test code = 384) 29 mm Hg 35-45 PO2 ARTERIAL (BEAKER) (test code = 385) 590 mm Hg 80-90 O2 SATURATION ARTERIAL (BEAKER) (test code = 99.9 % 96. 0-97.0 386) HCO3 ARTERIAL (BEAKER) (test code = 388) 16 mmol/L 21-29 BASE EXCESS ARTERIAL (BEAKER) (test code = 387) -7.3 mmol/L -2.0-3.0 PATIENT TEMPERATURE (BEAKER) (test code = 1818) 37.0 FIO2 (BEAKER) (test code = 1819) 100 BLOOD GAS, [id number] 16:19:00 Test Item Value Reference Range Comments PH ARTERIAL (BEAKER) (test code = 383) 7.37 7.35-7.45 PCO2 ARTERIAL (BEAKER) (test code = 384) 27 mmHg 35-45 PO2 ARTERIAL (BEAKER) (test code = 385) 426 mmHg 80-90 O2 SATURATION ARTERIAL (BEAKER) (test code = 99.8 % 96. 0-97.0 386) HCO3 ARTERIAL (BEAKER) (test code = 388) 15 mmol/L 21-29 BASE EXCESS ARTERIAL (BEAKER) (test code = 387) -9.1 mmol/L -2.0-3.0 PATIENT TEMPERATURE (BEAKER) (test code = 1818) 37.0 C FIO2 (BEAKER) (test code = 1819) 100.0 % Sample drawn from ECMO circuitLACTIC ACID, ARTERIAL, WHOLE [id number] 14:07:00 Test Item Value Reference Range Comments LACTATE BLOOD ARTERIAL (2) 13.1 mmol/L 0.5-2.2 Speci men slightly hemolyzed (BEAKER) (test code = 2874) Effective 01/04/2016: Units/Reference Range ChangeNew: 0.5-2.2 mmol/L Previous: 5-20 mg/dLPROTHROMBIN [id number] 14:01:00 Test Item Value Reference Range Comments PROTIME (BEAKER) (test code = 759) 20.9 seconds 11.7-14.7 INR (BEAKER) (test code = 370) 1.8 <=5.9 RECOMMENDED COUMADIN/WARFARIN INR THERAPY RANGESSTANDARD DOSE: 2.0 - 3.0 Includes: PROPHYLAXIS forvenous thrombosis, systemic embolization; TREATMENT for venous thrombosis and/or pulmonary embolus.HIGH RISK: Target INR is 2.5-3.5 for patients with mechanical heart valves.[id number] 14:01:00 Test Item Value Reference Range Comments FIBRINOGEN LEVEL (BEAKER) (test code = 658) 227 mg/dl 225- 434 PLATELET [id number] 13:54:00 Test Item Value Reference Range Comments PLATELET COUNT (BEAKER) (test code = 756) 115 K/CU MM 150-45 0 BLOOD GAS, [id number] 13:47:00 Test Item Value Reference Range Comments PH ARTERIAL (BEAKER) (test code = 383) 7.26 7.35-7.45 PCO2 ARTERIAL (BEAKER) (test code = 384) 39 mmHg 35-45 PO2 ARTERIAL (BEAKER) (test code = 385) 180 mmHg 80-90 O2 SATURATION ARTERIAL (BEAKER) (test code = 99.0 % 96. 0-97.0 386) HCO3 ARTERIAL (BEAKER) (test code = 388) 17 mmol/L 21-29 BASE EXCESS ARTERIAL (BEAKER) (test code = 387) -9.0 mmol/L -2.0-3.0 PATIENT TEMPERATURE (BEAKER) (test code = 1818) 37.1 C FIO2 (BEAKER) (test code = 1819) 40.0 % GLUCOSE-STAT [id number] 13:47:00 Test Item Value Reference Range Comments GLUCOSE RANDOM (BEAKER) (test code = 652) 134 mg/dL 70-110 [id number] 12:33:00 Test Item Value Reference Range Comments POTASSIUM (BEAKER) (test code = 379) 5.6 meq/L 3.5-5.1 PRN - repeat glucose levels every 1 hour or as specified by insulin titration orders until glucose level is less than 450 mg/[id number] 12:33:00 Test Item Value Reference Range Comments GLUCOSE RANDOM (BEAKER) (test code = 652) 43 mg/dL 70-105 PRN - repeat glucose levels every 1 hour or as specified by insulin titration orders until glucose level is less than 450 mg/dLBASIC METABOLIC [id number] 11:05:00 Test Item Value Reference Range Comments SODIUM (BEAKER) (test 144 meq/L 136-145 code = 381) POTASSIUM (BEAKER) (test 5.9 meq/L 3.5-5.1 code = 379) CHLORIDE (BEAKER) (test 107 meq/L 98-107 code = 382) CO2 (BEAKER) (test code = 19 meq/L 22-29 355) BLOOD UREA NITROGEN 26 mg/dL 7-21 (BEAKER) (test code = 354) CREATININE (BEAKER) (test 3.68 mg/dL 0.57-1.25 code = 358) GLUCOSE RANDOM (BEAKER) 34 mg/dL 70-105 (test code = 652) CALCIUM (BEAKER) (test 9.5 mg/dL 8.4-10.2 code = 697) EGFR (BEAKER) (test code 21 mL/min/1.73 sq m EST IMATED GFR IS NOT = 1092) ACCURATE CREA TININE CLEARANCE IN PRE DICTING GLOMERULAR FILTR ATION RATE. ESTIMATED GFR IS NOT APPLICABLE F OR DIALYSIS PATIENT S. PRN - repeat glucose levels every 1 hour or as specified by insulin titration orders until glucose level is less than 450 mg/dLPRN - repeat potassium levels every 1 hour until glucose level is less than 450 mg/[id number] 11:05:00 Test Item Value Reference Range Comments GLUCOSE RANDOM (BEAKER) (test code = 652) 34 mg/dL 70-105 [id number] 10:44:00 Test Item Value Reference Range Comments POTASSIUM (BEAKER) (test code = 379) 5.9 meq/L 3.5-5.1 HEPATIC FUNCTION [id number] 10:44:00 Test Item Value Reference Range Comments TOTAL PROTEIN (BEAKER) (test code = 770) 5.5 gm/dL 6.0-8.3 ALBUMIN (BEAKER) (test code = 1145) 2.8 g/dL 3.5-5.0 BILIRUBIN TOTAL (BEAKER) (test code = 377) 2.3 mg/dL 0.2-1 .2 BILIRUBIN DIRECT (BEAKER) (test code = 706) 1.6 mg/dL 0.1- 0.5 ALKALINE PHOSPHATASE (BEAKER) (test code = 346) 50 U/L 40-150 AST (SGOT) (BEAKER) (test code = 353) 856 U/L 5-34 ALT (SGPT) (BEAKER) (test code = 347) 420 U/L 6-55 PRN - repeat glucose levels every 1 hour or as specified by insulin titration orders until glucose level is less than 450 mg/dLPRN - repeat potassium levels every 1 hour until glucose level is less than 450 mg/dLPROTHROMBIN TIME/INR 2018-01-11 10:43:00 Test Item Value Reference Range Comments PROTIME (BEAKER) (test code = 759) 19.5 seconds 11.7-14.7 INR (BEAKER) (test code = 370) 1.7 <=5.9 RECOMMENDED COUMADIN/WARFARIN INR THERAPY RANGESSTANDARD DOSE: 2.0 - 3.0 Includes: PROPHYLAXIS forvenous thrombosis, systemic embolization; TREATMENT for venous thrombosis and/or pulmonary embolus.HIGH RISK: Target INR is 2.5-3.5 for patients with mechanical heart valves.LACTIC ACID, ARTERIAL, WHOLE BLOOD 2018-01-11 10:38:00 Test Item Value Reference Range Comments LACTATE BLOOD ARTERIAL (2) 13.1 mmol/L 0.5-2.2 Speci men slightly hemolyzed (BEAKER) (test code = 2874) Effective 01/04/2016: Units/Reference Range ChangeNew: 0.5-2.2 mmol/L Previous: 5-20 mg/dLCBC W/PLT COUNT & AUTO [id number] 10:23:00 Test Item Value Reference Range Comments WHITE BLOOD CELL COUNT (BEAKER) (test code = 10.3 K/ L 3.5 -10.5 775) RED BLOOD CELL COUNT (BEAKER) (test code = 761) 3.75 M/ L 4.63-6.08 HEMOGLOBIN (BEAKER) (test code = 410) 11.8 GM/DL 13.7-17.5 HEMATOCRIT (BEAKER) (test code = 411) 36.6 % 40.1-51.0 MEAN CORPUSCULAR VOLUME (BEAKER) (test code = 97.6 fL 79 .0-92.2 753) MEAN CORPUSCULAR HEMOGLOBIN (BEAKER) (test code 31.5 pg 25.7-32.2 = 751) MEAN CORPUSCULAR HEMOGLOBIN CONC (BEAKER) (test 32.2 GM/DL 32.3-36.5 code = 752) RED CELL DISTRIBUTION WIDTH (BEAKER) (test code 19.2 % 11.6-14.4 = 412) PLATELET COUNT (BEAKER) (test code = 756) 125 K/CU MM 150-45 0 MEAN PLATELET VOLUME (BEAKER) (test code = 754) 10.7 fL 9.4-12.4 NUCLEATED RED BLOOD CELLS (BEAKER) (test code = 1 /100 WBC 0-0 413) NEUTROPHILS RELATIVE PERCENT (BEAKER) (test code 86 % = 429) LYMPHOCYTES RELATIVE PERCENT (BEAKER) (test code 4 % = 430) MONOCYTES RELATIVE PERCENT (BEAKER) (test code = 9 % 431) EOSINOPHILS RELATIVE PERCENT (BEAKER) (test code 0 % = 432) BASOPHILS RELATIVE PERCENT (BEAKER) (test code = 0 % 437) NEUTROPHILS ABSOLUTE COUNT (BEAKER) (test code = 8.88 K/ L 1.78-5.38 670) LYMPHOCYTES ABSOLUTE COUNT (BEAKER) (test code = 0.41 K/ L 1.32-3.57 414) MONOCYTES ABSOLUTE COUNT (BEAKER) (test code = 0.91 K/ L 0 .30-0.82 415) EOSINOPHILS ABSOLUTE COUNT (BEAKER) (test code = 0.00 K/ L 0.04-0.54 416) BASOPHILS ABSOLUTE COUNT (BEAKER) (test code = 0.02 K/ L 0 .01-0.08 417) IMMATURE GRANULOCYTES-RELATIVE PERCENT (BEAKER) 1 % 0-1 (test code = 2801) BLOOD GAS, [id number] 10:20:00 Test Item Value Reference Range Comments PH ARTERIAL (BEAKER) (test code = 383) 7.29 7.35-7.45 PCO2 ARTERIAL (BEAKER) (test code = 384) 40 mmHg 35-45 PO2 ARTERIAL (BEAKER) (test code = 385) 185 mmHg 80-90 O2 SATURATION ARTERIAL (BEAKER) (test code = 99.1 % 96. 0-97.0 386) HCO3 ARTERIAL (BEAKER) (test code = 388) 18 mmol/L 21-29 BASE EXCESS ARTERIAL (BEAKER) (test code = 387) -7.7 mmol/L -2.0-3.0 PATIENT TEMPERATURE (BEAKER) (test code = 1818) 37.3 C FIO2 (BEAKER) (test code = 1819) 40.0 % [id number] 09:01:00 Test Item Value Reference Range Comments POTASSIUM (BEAKER) (test code = 379) 5.9 meq/L 3.5-5.1 PRN - repeat glucose levels every 1 hour or as specified by insulin titration orders until glucose level is less than 450 mg/[id number] 09:01:00 Test Item Value Reference Range Comments MAGNESIUM (BEAKER) (test code = 627) 1.7 mg/dL 1.6-2.6 PRN - repeat glucose levels every 1 hour or as specified by insulin titration orders until glucose level is less than 450 mg/[id number] 09:01:00 Test Item Value Reference Range Comments PHOSPHORUS (BEAKER) (test code = 604) 4.7 mg/dL 2.3-4.7 PRN - repeat glucose levels every 1 hour or as specified by insulin titration orders until glucose level is less than 450 mg/[id number] 09:01:00 Test Item Value Reference Range Comments GLUCOSE RANDOM (BEAKER) (test code = 652) 50 mg/dL 70-105 PRN - repeat glucose levels every 1 hour or as specified by insulin titration orders until glucose level is less than 450 mg/dLCALCIUM, [id number] 08:47:00 Test Item Value Reference Range Comments CALCIUM IONIZED (BEAKER) (test code = 698) 1.24 mmol/L 1.12- 1.27 PH, BLOOD (BEAKER) (test code = 1810) 7.31 [id number] 08:45:00 Test Item Value Reference Range Comments PARTIAL THROMBOPLASTIN TIME (BEAKER) (test code 53.7 seconds 22.5-36.0 = 760) BLOOD GAS, [id number] 08:41:00 Test Item Value Reference Range Comments PH ARTERIAL (BEAKER) (test code = 383) 7.31 7.35-7.45 PCO2 ARTERIAL (BEAKER) (test code = 384) 37 mmHg 35-45 PO2 ARTERIAL (BEAKER) (test code = 385) 192 mmHg 80-90 O2 SATURATION ARTERIAL (BEAKER) (test code = 99.2 % 96. 0-97.0 386) HCO3 ARTERIAL (BEAKER) (test code = 388) 18 mmol/L 21-29 BASE EXCESS ARTERIAL (BEAKER) (test code = 387) -7.6 mmol/L -2.0-3.0 PATIENT TEMPERATURE (BEAKER) (test code = 1818) 37.5 C FIO2 (BEAKER) (test code = 1819) 40.0 % PH, [id number] 08:41:00 Test Item Value Reference Range Comments PH ARTERIAL (BEAKER) (test code = 383) 7.31 7.35-7.45 RAD, CHEST, 1 VIEW, NON [id number] 07:31:00Reason for exam:->s/p cardiac surgeryShould this be [...] Xie MDReport VerifiedDate/Time: 01/11/2018 07:31:38 Reading Location: [address] Ortho Consult Reading Room BLOOD GAS, ARTERIAL 2018-01-11 06:54:00 Test Item Value Reference Range Comments PH ARTERIAL (BEAKER) (test code = 383) 7.28 7.35-7.45 PCO2 ARTERIAL (BEAKER) (test code = 384) 40 mmHg 35-45 PO2 ARTERIAL (BEAKER) (test code = 385) 206 mmHg 80-90 O2 SATURATION ARTERIAL (BEAKER) (test code = 99.3 % 96. 0-97.0 386) HCO3 ARTERIAL (BEAKER) (test code = 388) 18 mmol/L 21-29 BASE EXCESS ARTERIAL (BEAKER) (test code = 387) -7.9 mmol/L -2.0-3.0 PATIENT TEMPERATURE (BEAKER) (test code = 1818) 37.3 C FIO2 (BEAKER) (test code = 1819) 40.0 % BASIC METABOLIC [id number] 06:12:00 Test Item Value Reference Range Comments SODIUM (BEAKER) (test 141 meq/L 136-145 code = 381) POTASSIUM (BEAKER) (test 4.7 meq/L 3.5-5.1 code = 379) CHLORIDE (BEAKER) (test 109 meq/L 98-107 code = 382) CO2 (BEAKER) (test code = 17 meq/L 22-29 355) BLOOD UREA NITROGEN 31 mg/dL 7-21 (BEAKER) (test code = 354) CREATININE (BEAKER) (test 4.41 mg/dL 0.57-1.25 code = 358) GLUCOSE RANDOM (BEAKER) 86 mg/dL 70-105 (test code = 652) CALCIUM (BEAKER) (test 10.6 mg/dL 8.4-10.2 code = 697) EGFR (BEAKER) (test code 17 mL/min/1.73 sq m EST IMATED GFR IS NOT = 1092) ACCURATE CREA TININE CLEARANCE IN PRE DICTING GLOMERULAR FILTR ATION RATE. ESTIMATED GFR IS NOT APPLICABLE F OR DIALYSIS PATIENT S. POCT-GLUCOSE [id number] 05:58:00 Test Item Value Reference Range Comments POC-GLUCOSE METER (BEAKER) 121 mg/dL 70-110 TESTE D AT [address] (test code = 1538) [facility] [id number] POCT-GLUCOSE [id number] 05:58:00 Test Item Value Reference Range Comments POC-GLUCOSE METER (BEAKER) 66 mg/dL 70-110 Will Repeat Test/TESTED AT (test code = 1538) [place] [id number] [facility] [address] [id number] 05:51:00 Test Item Value Reference Range Comments PHOSPHORUS (BEAKER) (test code = 604) 3.5 mg/dL 2.3-4.7 [id number] 05:51:00 Test Item Value Reference Range Comments MAGNESIUM (BEAKER) (test code = 627) 1.9 mg/dL 1.6-2.6 BLOOD GAS, [id number] 05:47:00 Test Item Value Reference Range Comments PH ARTERIAL (BEAKER) (test code = 383) 7.32 7.35-7.45 PCO2 ARTERIAL (BEAKER) (test code = 384) 40 mmHg 35-45 PO2 ARTERIAL (BEAKER) (test code = 385) 190 mmHg 80-90 O2 SATURATION ARTERIAL (BEAKER) (test code = 99.2 % 96. 0-97.0 386) HCO3 ARTERIAL (BEAKER) (test code = 388) 20 mmol/L 21-29 BASE EXCESS ARTERIAL (BEAKER) (test code = 387) -5.6 mmol/L -2.0-3.0 PATIENT TEMPERATURE (BEAKER) (test code = 1818) 36.6 C FIO2 (BEAKER) (test code = 1819) 40.0 % POCT-GLUCOSE [id number] 05:27:00 Test Item Value Reference Range Comments POC-GLUCOSE METER (BEAKER) 112 mg/dL 70-110 TESTE D AT [address] (test code = 1538) [place] [id number] POCT-GLUCOSE [id number] 05:27:00 Test Item Value Reference Range Comments POC-GLUCOSE METER (BEAKER) 106 mg/dL 70-110 TESTE D AT [address] (test code = 1538) [place] [id number]30 POCT-GLUCOSE [id number] 05:26:00 Test Item Value Reference Range Comments POC-GLUCOSE METER (BEAKER) 66 mg/dL 70-110 TESTE D AT [address] (test code = 1538) [place] [id number]30 LACTIC ACID, ARTERIAL, WHOLE [id number] 04:59:00 Test Item Value Reference Range Comments LACTATE BLOOD ARTERIAL (2) 12.2 mmol/L 0.5-2.2 Speci men slightly hemolyzed (BEAKER) (test code = 2874) Effective 01/04/2016: Units/Reference Range ChangeNew: 0.5-2.2 mmol/L Previous: 5-20 mg/dLCALCIUM, [id number] 04:57:00 Test Item Value Reference Range Comments CALCIUM IONIZED (BEAKER) (test code = 698) 1.33 mmol/L 1.12- 1.27 PH, BLOOD (BEAKER) (test code = 1810) 7.30 BLOOD GAS, [id number] 04:57:00 Test Item Value Reference Range Comments PH ARTERIAL (BEAKER) (test code = 383) 7.32 7.35-7.45 PCO2 ARTERIAL (BEAKER) (test code = 384) 40 mmHg 35-45 PO2 ARTERIAL (BEAKER) (test code = 385) 193 mmHg 80-90 O2 SATURATION ARTERIAL (BEAKER) (test code = 99.2 % 96. 0-97.0 386) HCO3 ARTERIAL (BEAKER) (test code = 388) 20 mmol/L 21-29 BASE EXCESS ARTERIAL (BEAKER) (test code = 387) -6.0 mmol/L -2.0-3.0 PATIENT TEMPERATURE (BEAKER) (test code = 1818) 35.5 C FIO2 (BEAKER) (test code = 1819) 45.0 % OXYGEN SATURATION, [id number] 04:56:00 Test Item Value Reference Range Comments O2 SATURATION (MEASURED) (BEAKER) (test code = 1455) 83.2 % CBC W/PLT COUNT & AUTO [id number] 04:56:00 Test Item Value Reference Range Comments WHITE BLOOD CELL COUNT (BEAKER) (test code = 12.5 K/ L 3.5 -10.5 775) RED BLOOD CELL COUNT (BEAKER) (test code = 761) 3.79 M/ L 4.63-6.08 HEMOGLOBIN (BEAKER) (test code = 410) 12.0 GM/DL 13.7-17.5 HEMATOCRIT (BEAKER) (test code = 411) 36.8 % 40.1-51.0 MEAN CORPUSCULAR VOLUME (BEAKER) (test code = 97.1 fL 79 .0-92.2 753) MEAN CORPUSCULAR HEMOGLOBIN (BEAKER) (test code 31.7 pg 25.7-32.2 = 751) MEAN CORPUSCULAR HEMOGLOBIN CONC (BEAKER) (test 32.6 GM/DL 32.3-36.5 code = 752) RED CELL DISTRIBUTION WIDTH (BEAKER) (test code 18.2 % 11.6-14.4 = 412) PLATELET COUNT (BEAKER) (test code = 756) 134 K/CU MM 150-45 0 MEAN PLATELET VOLUME (BEAKER) (test code = 754) 10.9 fL 9.4-12.4 NUCLEATED RED BLOOD CELLS (BEAKER) (test code = 0 /100 WBC 0-0 413) NEUTROPHILS RELATIVE PERCENT (BEAKER) (test code 89 % = 429) LYMPHOCYTES RELATIVE PERCENT (BEAKER) (test code 2 % = 430) MONOCYTES RELATIVE PERCENT (BEAKER) (test code = 8 % 431) EOSINOPHILS RELATIVE PERCENT (BEAKER) (test code 0 % = 432) BASOPHILS RELATIVE PERCENT (BEAKER) (test code = 0 % 437) NEUTROPHILS ABSOLUTE COUNT (BEAKER) (test code = 11.15 K/ L 1.78-5.38 670) LYMPHOCYTES ABSOLUTE COUNT (BEAKER) (test code = 0.30 K/ L 1.32-3.57 414) MONOCYTES ABSOLUTE COUNT (BEAKER) (test code = 0.97 K/ L 0 .30-0.82 415) EOSINOPHILS ABSOLUTE COUNT (BEAKER) (test code = 0.01 K/ L 0.04-0.54 416) BASOPHILS ABSOLUTE COUNT (BEAKER) (test code = 0.02 K/ L 0 .01-0.08 417) IMMATURE GRANULOCYTES-RELATIVE PERCENT (BEAKER) 1 % 0-1 (test code = 2801) CALCIUM, [id number] 03:38:00 Test Item Value Reference Range Comments CALCIUM IONIZED (BEAKER) (test code = 698) 1.32 mmol/L 1.12- 1.27 PH, BLOOD (BEAKER) (test code = 1810) 7.29 BLOOD GAS, [id number] 03:36:00 Test Item Value Reference Range Comments PH ARTERIAL (BEAKER) (test code = 383) 7.31 7.35-7.45 PCO2 ARTERIAL (BEAKER) (test code = 384) 36 mmHg 35-45 PO2 ARTERIAL (BEAKER) (test code = 385) 207 mmHg 80-90 O2 SATURATION ARTERIAL (BEAKER) (test code = 99.3 % 96. 0-97.0 386) HCO3 ARTERIAL (BEAKER) (test code = 388) 19 mmol/L 21-29 BASE EXCESS ARTERIAL (BEAKER) (test code = 387) -7.6 mmol/L -2.0-3.0 PATIENT TEMPERATURE (BEAKER) (test code = 1818) 34.9 C FIO2 (BEAKER) (test code = 1819) 50.0 % HGB/HCT (H&H) - STAT [id number] 03:36:00 Test Item Value Reference Range Comments HEMOGLOBIN (BEAKER) (test code = 410) 12.5 g/dL 13.0-16.8 HEMATOCRIT (BEAKER) (test code = 411) 37.0 % 40.0-50.0 OXYGEN SATURATION, [id number] 03:35:00 Test Item Value Reference Range Comments O2 SATURATION (MEASURED) (BEAKER) (test code = 1455) 80.3 % GLUCOSE-STAT [id number] 03:34:00 Test Item Value Reference Range Comments GLUCOSE RANDOM (BEAKER) (test code = 652) 91 mg/dL 70-110 SODIUM NA-STAT [id number] 03:34:00 Test Item Value Reference Range Comments SODIUM (BEAKER) (test code = 381) 137 meq/L 135-148 POTASSIUM-STAT [id number] 03:34:00 Test Item Value Reference Range Comments POTASSIUM (BEAKER) (test code = 379) 4.6 meq/L 3.6-5.5 BLOOD GAS, [id number] 03:01:00 Test Item Value Reference Range Comments PH ARTERIAL (BEAKER) (test code = 383) 7.34 7.35-7.45 PCO2 ARTERIAL (BEAKER) (test code = 384) 37 mmHg 35-45 PO2 ARTERIAL (BEAKER) (test code = 385) 100 mmHg 80-90 O2 SATURATION ARTERIAL (BEAKER) (test code = 97.8 % 96. 0-97.0 386) HCO3 ARTERIAL (BEAKER) (test code = 388) 20 mmol/L 21-29 BASE EXCESS ARTERIAL (BEAKER) (test code = 387) -5.7 mmol/L -2.0-3.0 PATIENT TEMPERATURE (BEAKER) (test code = 1818) 34.6 C FIO2 (BEAKER) (test code = 1819) 50.0 % HGB/HCT (H&H) - STAT [id number] 03:01:00 Test Item Value Reference Range Comments HEMOGLOBIN (BEAKER) (test code = 410) 12.0 g/dL 13.0-16.8 HEMATOCRIT (BEAKER) (test code = 411) 35.0 % 40.0-50.0 POTASSIUM-STAT [id number] 03:00:00 Test Item Value Reference Range Comments POTASSIUM (BEAKER) (test code = 379) 5.0 meq/L 3.6-5.5 GLUCOSE-STAT [id number] 03:00:00 Test Item Value Reference Range Comments GLUCOSE RANDOM (BEAKER) (test code = 652) 102 mg/dL 70-110 SODIUM NA-STAT [id number] 03:00:00 Test Item Value Reference Range Comments SODIUM (BEAKER) (test code = 381) 140 meq/L 135-148 LACTIC ACID, ARTERIAL, WHOLE [id number] 01:53:00 Test Item Value Reference Range Comments LACTATE BLOOD ARTERIAL (2) 9.4 mmol/L 0.5-2.2 Speci men slightly hemolyzed (BEAKER) (test code = 2874) Effective 01/04/2016: Units/Reference Range ChangeNew: 0.5-2.2 mmol/L Previous: 5-20 mg/dLGLUCOSE-STAT [id number] 01:27:00 Test Item Value Reference Range Comments GLUCOSE RANDOM (BEAKER) (test code = 652) 99 mg/dL 70-110 BLOOD GAS, [id number] 01:27:00 Test Item Value Reference Range Comments PH ARTERIAL (BEAKER) (test code = 383) 7.33 7.35-7.45 PCO2 ARTERIAL (BEAKER) (test code = 384) 37 mmHg 35-45 PO2 ARTERIAL (BEAKER) (test code = 385) 325 mmHg 80-90 O2 SATURATION ARTERIAL (BEAKER) (test code = 99.7 % 96. 0-97.0 386) HCO3 ARTERIAL (BEAKER) (test code = 388) 20 mmol/L 21-29 BASE EXCESS ARTERIAL (BEAKER) (test code = 387) -6.6 mmol/L -2.0-3.0 PATIENT TEMPERATURE (BEAKER) (test code = 1818) 33.9 C FIO2 (BEAKER) (test code = 1819) 100.0 % HGB/HCT (H&H) - STAT [id number] 01:27:00 Test Item Value Reference Range Comments HEMOGLOBIN (BEAKER) (test code = 410) 12.7 g/dL 13.0-16.8 HEMATOCRIT (BEAKER) (test code = 411) 37.0 % 40.0-50.0 SODIUM NA-STAT [id number] 01:26:00 Test Item Value Reference Range Comments SODIUM (BEAKER) (test code = 381) 141 meq/L 135-148 POTASSIUM-STAT [id number] 01:26:00 Test Item Value Reference Range Comments POTASSIUM (BEAKER) (test code = 379) 3.6 meq/L 3.6-5.5 [id number] 00:38:00 Test Item Value Reference Range Comments PARTIAL THROMBOPLASTIN TIME (BEAKER) (test code 47.4 seconds 22.5-36.0 = 760) [id number] 00:35:00 Test Item Value Reference Range Comments POTASSIUM (BEAKER) (test code = 3.5 meq/L 3.5-5.1 Specimen slightly hemolyzed 379) CALCIUM, [id number] 00:25:00 Test Item Value Reference Range Comments CALCIUM IONIZED (BEAKER) (test code = 698) 1.43 mmol/L 1.12- 1.27 PH, BLOOD (BEAKER) (test code = 1810) 7.33 THROMBOELASTOGRAPH (TEG)2018-01-10 23:05:00 Test Item Value Reference Range Comments TEG ACTIVATED CLOTTING TIME (BEAKER) (test code 7.2 minutes 4.0-7.0 = 1407) TEG FIBRINOGEN ACTIVITY (BEAKER) (test code = 67.4 degrees 61 .0-73.0 1408) TEG PLT. AGGREGATION (BEAKER) (test code = 49.8 MM 55.0- 65.0 1409) TEG FIBRINOLYSIS (BEAKER) (test code = 1410) 15.1 % 0.0 -5.0 TGH ACTIVATED CLOTTING TIME (BEAKER) (test code 6.9 minutes 4.0-7.0 = 1411) TGH FIBRINOGEN ACTIVITY (BEAKER) (test code = 69.4 degrees 61 .0-73.0 1412) TGH PLT. AGGREGATION (BEAKER) (test code = 55.8 MM 55.0- 65.0 1413) TGH FIBRINOLYSIS (BEAKER) (test code = 1414) 0.0 % 0.0 -5.0 RAD, CHEST, 1 VIEW, NON [id number] 22:36:00Reason for exam:->s/p BronchoscopyFINAL REPORT CLINICAL INDICATION: Post bronchoscopy Comparison: Same date [id number] hours There is improved aeration of the right upper lobe. No pneumothorax is present. Hazy opacity in the right upper lobe and in the retrocardiac lower lungs may reflect atelectasis but pneumonitis should be excluded clinically. The cardiomediastinal contours are stable. Support lines are stable. Signed: Kellen Parra MDReport Verified Date/Time: 01/10/2018 22:36:29 Reading Location: [address] Reading Room C METABOLIC [id number] 22:01:00 Test Item Value Reference Range Comments SODIUM (BEAKER) (test 144 meq/L 136-145 code = 381) POTASSIUM (BEAKER) (test 3.9 meq/L 3.5-5.1 Specime n slightly code = 379) hemolyzed CHLORIDE (BEAKER) (test 109 meq/L 98-107 code = 382) CO2 (BEAKER) (test code = 20 meq/L 22-29 355) BLOOD UREA NITROGEN 39 mg/dL 7-21 (BEAKER) (test code = 354) CREATININE (BEAKER) (test 6.14 mg/dL 0.57-1.25 Specim en slightly code = 358) hemolyzed GLUCOSE RANDOM (BEAKER) 105 mg/dL 70-105 (test code = 652) CALCIUM (BEAKER) (test 12.8 mg/dL 8.4-10.2 code = 697) EGFR (BEAKER) (test code 11 mL/min/1.73 sq m EST IMATED GFR IS NOT = 1092) ACCURATE CREA TININE CLEARANCE IN PRE DICTING GLOMERULAR FILTR ATION RATE. ESTIMATED GFR IS NOT APPLICABLE F OR DIALYSIS PATIENT S. [id number] 22:00:00 Test Item Value Reference Range Comments MAGNESIUM (BEAKER) (test code = 2.4 mg/dL 1.6-2.6 Specimen slightly hemolyzed 627) [id number] 22:00:00 Test Item Value Reference Range Comments PHOSPHORUS (BEAKER) (test code 3.2 mg/dL 2.3-4.7 S pecimen slightly hemolyzed = 604) LACTIC ACID, ARTERIAL, WHOLE [id number] 21:57:00 Test Item Value Reference Range Comments LACTATE BLOOD ARTERIAL (2) 10.2 mmol/L 0.5-2.2 Speci men slightly hemolyzed (BEAKER) (test code = 2874) Effective 01/04/2016: Units/Reference Range ChangeNew: 0.5-2.2 mmol/L Previous: 5-20 mg/dLCBC W/PLT COUNT & AUTO [id number] 21:51:00 Test Item Value Reference Range Comments WHITE BLOOD CELL COUNT (BEAKER) (test code = 12.9 K/ L 3.5 -10.5 775) RED BLOOD CELL COUNT (BEAKER) (test code = 761) 2.52 M/ L 4.63-6.08 HEMOGLOBIN (BEAKER) (test code = 410) 8.0 GM/DL 13.7-17.5 HEMATOCRIT (BEAKER) (test code = 411) 24.9 % 40.1-51.0 MEAN CORPUSCULAR VOLUME (BEAKER) (test code = 98.8 fL 79 .0-92.2 753) MEAN CORPUSCULAR HEMOGLOBIN (BEAKER) (test code 31.7 pg 25.7-32.2 = 751) MEAN CORPUSCULAR HEMOGLOBIN CONC (BEAKER) (test 32.1 GM/DL 32.3-36.5 code = 752) RED CELL DISTRIBUTION WIDTH (BEAKER) (test code 17.2 % 11.6-14.4 = 412) PLATELET COUNT (BEAKER) (test code = 756) 150 K/CU MM 150-45 0 MEAN PLATELET VOLUME (BEAKER) (test code = 754) 9.8 fL 9.4-12.4 NUCLEATED RED BLOOD CELLS (BEAKER) (test code = 1 /100 WBC 0-0 413) NEUTROPHILS RELATIVE PERCENT (BEAKER) (test code 85 % = 429) LYMPHOCYTES RELATIVE PERCENT (BEAKER) (test code 9 % = 430) MONOCYTES RELATIVE PERCENT (BEAKER) (test code = 6 % 431) EOSINOPHILS RELATIVE PERCENT (BEAKER) (test code 0 % = 432) BASOPHILS RELATIVE PERCENT (BEAKER) (test code = 0 % 437) NEUTROPHILS ABSOLUTE COUNT (BEAKER) (test code = 10.97 K/ L 1.78-5.38 670) LYMPHOCYTES ABSOLUTE COUNT (BEAKER) (test code = 1.10 K/ L 1.32-3.57 414) MONOCYTES ABSOLUTE COUNT (BEAKER) (test code = 0.72 K/ L 0 .30-0.82 415) EOSINOPHILS ABSOLUTE COUNT (BEAKER) (test code = 0.04 K/ L 0.04-0.54 416) BASOPHILS ABSOLUTE COUNT (BEAKER) (test code = 0.01 K/ L 0 .01-0.08 417) IMMATURE GRANULOCYTES-RELATIVE PERCENT (BEAKER) 1 % 0-1 (test code = 2801) [id number] 21:49:00 Test Item Value Reference Range Comments PARTIAL THROMBOPLASTIN TIME (BEAKER) (test code 41.2 seconds 22.5-36.0 = 760) PROTHROMBIN [id number] 21:48:00 Test Item Value Reference Range Comments PROTIME (BEAKER) (test code = 759) 19.8 seconds 11.7-14.7 INR (BEAKER) (test code = 370) 1.7 <=5.9 RECOMMENDED COUMADIN/WARFARIN INR THERAPY RANGESSTANDARD DOSE: 2.0 - 3.0 Includes: PROPHYLAXIS forvenous thrombosis, systemic embolization; TREATMENT for venous thrombosis and/or pulmonary embolus.HIGH RISK: Target INR is 2.5-3.5 for patients with mechanical heart valves.[id number] 21:48:00 Test Item Value Reference Range Comments FIBRINOGEN LEVEL (BEAKER) (test code = 658) 221 mg/dl 225- 434 CALCIUM, [id number] 21:33:00 Test Item Value Reference Range Comments CALCIUM IONIZED (BEAKER) (test code = 698) 1.54 mmol/L 1.12- 1.27 PH, BLOOD (BEAKER) (test code = 1810) 7.33 OXYGEN SATURATION, [id number] 21:33:00 Test Item Value Reference Range Comments O2 SATURATION (MEASURED) (BEAKER) (test code = 1455) 67.1 % GLUCOSE-STAT [id number] 21:32:00 Test Item Value Reference Range Comments GLUCOSE RANDOM (BEAKER) (test code = 652) 98 mg/dL 70-110 SODIUM NA-STAT [id number] 21:32:00 Test Item Value Reference Range Comments SODIUM (BEAKER) (test code = 381) 139 meq/L 135-148 POTASSIUM-STAT [id number] 21:32:00 Test Item Value Reference Range Comments POTASSIUM (BEAKER) (test code = 379) 3.6 meq/L 3.6-5.5 BLOOD GAS, [id number] 21:32:00 Test Item Value Reference Range Comments PH ARTERIAL (BEAKER) (test code = 383) 7.33 7.35-7.45 PCO2 ARTERIAL (BEAKER) (test code = 384) 44 mmHg 35-45 PO2 ARTERIAL (BEAKER) (test code = 385) 98 mmHg 80-90 O2 SATURATION ARTERIAL (BEAKER) (test code = 97.1 % 96. 0-97.0 386) HCO3 ARTERIAL (BEAKER) (test code = 388) 23 mmol/L 21-29 BASE EXCESS ARTERIAL (BEAKER) (test code = 387) -3.1 mmol/L -2.0-3.0 PATIENT TEMPERATURE (BEAKER) (test code = 1818) 36.6 C FIO2 (BEAKER) (test code = 1819) 60.0 % HGB/HCT (H&H) - STAT [id number] 21:32:00 Test Item Value Reference Range Comments HEMOGLOBIN (BEAKER) (test code = 410) 8.2 g/dL 13.0-16.8 HEMATOCRIT (BEAKER) (test code = 411) 24.0 % 40.0-50.0 RAD, CHEST, 1 VIEW, NON [id number] 21:32:00Reason for exam:->s/p cardiac surgeryShould this be performed at the bedside?->YesFINAL REPORT Chest, 1 view, 01/10/2018 9:28 PM. History: Postop. Comparison: . Discussion: The cardiomediastinal silhouette and pulmonary vasculature [...] the level of the clavicles. Right IJ Aurora-Moni catheter terminatesin the distal right pulmonary artery. The soft tissues and osseous structures are intact. IMPRESSION: Postoperative changes with right upper lobe collapse, likely secondary to mucous plugging. Supporting lines and tubes as described above. Note position of the Aurora-Moni catheter. Signed: Moiz Musaort Verified Date/Time: 01/10/2018 21:32:31 Reading Location: [facility] [id number] Consult Reading Room THROMBOELASTOGRAPH (TEG)2018-01-10 21:01:00 Test Item Value Reference Range Comments TEG ACTIVATED CLOTTING TIME (BEAKER) (test code 19.1 minutes 4.0-7.0 = 1407) TEG FIBRINOGEN ACTIVITY (BEAKER) (test code = 45.3 degrees 61 .0-73.0 1408) TEG PLT. AGGREGATION (BEAKER) (test code = 42.1 MM 55.0- 65.0 1409) TGH ACTIVATED CLOTTING TIME (BEAKER) (test code 12.9 minutes 4.0-7.0 = 1411) TGH FIBRINOGEN ACTIVITY (BEAKER) (test code = 24.6 degrees 61 .0-73.0 1412) TGH PLT. AGGREGATION (BEAKER) (test code = 40.1 MM 55.0- 65.0 1413) CALCIUM, [id number] 20:42:00 Test Item Value Reference Range Comments CALCIUM IONIZED (BEAKER) (test code = 698) 1.41 mmol/L 1.12- 1.27 PH, BLOOD (BEAKER) (test code = 1810) 7.41 SODIUM NA-STAT [id number] 20:41:00 Test Item Value Reference Range Comments SODIUM (BEAKER) (test code = 381) 138 meq/L 135-148 POTASSIUM-STAT [id number] 20:41:00 Test Item Value Reference Range Comments POTASSIUM (BEAKER) (test code = 379) 3.7 meq/L 3.6-5.5 BLOOD GAS, [id number] 20:41:00 Test Item Value Reference Range Comments PH ARTERIAL (BEAKER) (test code = 383) 7.41 7.35-7.45 PCO2 ARTERIAL (BEAKER) (test code = 384) 32 mmHg 35-45 PO2 ARTERIAL (BEAKER) (test code = 385) 153 mmHg 80-90 O2 SATURATION ARTERIAL (BEAKER) (test code = 99.1 % 96. 0-97.0 386) HCO3 ARTERIAL (BEAKER) (test code = 388) 21 mmol/L 21-29 BASE EXCESS ARTERIAL (BEAKER) (test code = 387) -4.2 mmol/L -2.0-3.0 PATIENT TEMPERATURE (BEAKER) (test code = 1818) 32.0 C FIO2 (BEAKER) (test code = 1819) 100.0 % GLUCOSE-STAT [id number] 20:41:00 Test Item Value Reference Range Comments GLUCOSE RANDOM (BEAKER) (test code = 652) 120 mg/dL 70-110 HGB/HCT (H&H) - STAT [id number] 20:41:00 Test Item Value Reference Range Comments HEMOGLOBIN (BEAKER) (test code = 410) 7.8 g/dL 13.0-16.8 HEMATOCRIT (BEAKER) (test code = 411) 23.0 % 40.0-50.0 [id number] 20:23:00 Test Item Value Reference Range Comments FIBRINOGEN LEVEL (BEAKER) (test code = 658) 239 mg/dl 225- 434 [id number] 20:23:00 Test Item Value Reference Range Comments PARTIAL THROMBOPLASTIN TIME (BEAKER) (test code 38.6 seconds 22.5-36.0 = 760) PROTHROMBIN [id number] 20:22:00 Test Item Value Reference Range Comments PROTIME (BEAKER) (test code = 759) 21.6 seconds 11.7-14.7 INR (BEAKER) (test code = 370) 1.9 <=5.9 RECOMMENDED COUMADIN/WARFARIN INR THERAPY RANGESSTANDARD DOSE: 2.0 - 3.0 Includes: PROPHYLAXIS forvenous thrombosis, systemic embolization; TREATMENT for venous thrombosis and/or pulmonary embolus.HIGH RISK: Target INR is 2.5-3.5 for patients with mechanical heart valves.[id number] 20:16:00 Test Item Value Reference Range Comments ACTIVATED CLOTTING TIME 114 sec TESTED A T [facility] [address] (BEAKER) (test code = 441) [place] [address] [id number] 20:16:00 Test Item Value Reference Range Comments ACTIVATED CLOTTING TIME 499 sec TESTED A T [facility] [address] (BEAKER) (test code = 441) [place] [address] [id number] 20:16:00 Test Item Value Reference Range Comments ACTIVATED CLOTTING TIME 483 sec TESTED A T [facility] [address] (BEAKER) (test code = 441) [place] [address] [id number] 20:16:00 Test Item Value Reference Range Comments ACTIVATED CLOTTING TIME 538 sec TESTED A T [facility] [address] (BEAKER) (test code = 441) [place] [address] [id number] 20:16:00 Test Item Value Reference Range Comments ACTIVATED CLOTTING TIME 615 sec TESTED A T [facility] [address] (BEAKER) (test code = 441) [place] [address] [id number] 20:16:00 Test Item Value Reference Range Comments ACTIVATED CLOTTING TIME 692 sec TESTED A T [facility] [address] (BEAKER) (test code = 441) [place] [address] [id number] 20:16:00 Test Item Value Reference Range Comments ACTIVATED CLOTTING TIME 428 sec TESTED A T [facility] [address] (BEAKER) (test code = 441) [place] [address] [id number] 20:16:00 Test Item Value Reference Range Comments ACTIVATED CLOTTING TIME 373 sec TESTED A T [facility] [address] (BEAKER) (test code = 441) [place] [address] [id number] 20:16:00 Test Item Value Reference Range Comments ACTIVATED CLOTTING TIME 455 sec TESTED A T [facility] [address] (BEAKER) (test code = 441) [place] [address] [id number] 20:16:00 Test Item Value Reference Range Comments ACTIVATED CLOTTING TIME 494 sec TESTED A T [facility] [address] (BEAKER) (test code = 441) [place] [address] [id number] 20:16:00 Test Item Value Reference Range Comments ACTIVATED CLOTTING TIME 527 sec TESTED A T [facility] [address] (BEAKER) (test code = 441) [place] [address] [id number] 20:16:00 Test Item Value Reference Range Comments ACTIVATED CLOTTING TIME 610 sec TESTED A T [facility] [address] (BEAKER) (test code = 441) [place] [address] [id number] 20:16:00 Test Item Value Reference Range Comments ACTIVATED CLOTTING TIME 576 sec TESTED A T [facility] [address] (BEAKER) (test code = 441) [place] [address] [id number] 20:16:00 Test Item Value Reference Range Comments ACTIVATED CLOTTING TIME 384 sec TESTED A T [facility] [address] (BEAKER) (test code = 441) [place] [address] PLATELET [id number] 20:08:00 Test Item Value Reference Range Comments PLATELET COUNT (BEAKER) (test code = 756) 47 K/CU MM 150-45 0 THROMBOELASTOGRAPH (TEG)[id number] 20:00:00 Test Item Value Reference Range Comments TEG ACTIVATED CLOTTING TIME (BEAKER) minutes 4.0-7.0 No clot detected (test code = 1407) [facility] ACTIVATED CLOTTING TIME (BEAKER) 9.2 minutes 4.0-7.0 (test code = 1411) [facility] FIBRINOGEN ACTIVITY (BEAKER) (test 51.1 degrees 61.0-73.0 code = 1412) [facility] PLT. AGGREGATION (BEAKER) (test 41.9 MM 55.0-65.0 code = 1413) [facility] FIBRINOLYSIS (BEAKER) (test code = 0.0 % 0.0-5.0 1414) CALCIUM, [id number] 19:59:00 Test Item Value Reference Range Comments CALCIUM IONIZED (BEAKER) (test code = 698) 1.39 mmol/L 1.12- 1.27 PH, BLOOD (BEAKER) (test code = 1810) 7.37 BLOOD GAS, [id number] 19:58:00 Test Item Value Reference Range Comments PH ARTERIAL (BEAKER) (test code = 383) 7.39 7.35-7.45 PCO2 ARTERIAL (BEAKER) (test code = 384) 35 mmHg 35-45 PO2 ARTERIAL (BEAKER) (test code = 385) 304 mmHg 80-90 O2 SATURATION ARTERIAL (BEAKER) (test code = 99.7 % 96. 0-97.0 386) HCO3 ARTERIAL (BEAKER) (test code = 388) 21 mmol/L 21-29 BASE EXCESS ARTERIAL (BEAKER) (test code = 387) -3.8 mmol/L -2.0-3.0 PATIENT TEMPERATURE (BEAKER) (test code = 1818) 36.0 C FIO2 (BEAKER) (test code = 1819) 100.0 % GLUCOSE-STAT [id number] 19:58:00 Test Item Value Reference Range Comments GLUCOSE RANDOM (BEAKER) (test code = 652) 143 mg/dL 70-110 HGB/HCT (H&H) - STAT [id number] 19:58:00 Test Item Value Reference Range Comments HEMOGLOBIN (BEAKER) (test code = 410) 8.7 g/dL 13.0-16.8 HEMATOCRIT (BEAKER) (test code = 411) 26.0 % 40.0-50.0 SODIUM NA-STAT [id number] 19:57:00 Test Item Value Reference Range Comments SODIUM (BEAKER) (test code = 381) 140 meq/L 135-148 POTASSIUM-STAT [id number] 19:57:00 Test Item Value Reference Range Comments POTASSIUM (BEAKER) (test code = 379) 3.9 meq/L 3.6-5.5 [id number] 19:29:00 Test Item Value Reference Range Comments PARTIAL THROMBOPLASTIN TIME (BEAKER) (test code = > seconds 22.5-36.0 760) [id number] 19:16:00 Test Item Value Reference Range Comments FIBRINOGEN LEVEL (BEAKER) (test code = 658) 271 mg/dl 225- 434 PROTHROMBIN [id number] 19:15:00 Test Item Value Reference Range Comments PROTIME (BEAKER) (test code = 759) 21.3 seconds 11.7-14.7 INR (BEAKER) (test code = 370) 1.8 <=5.9 RECOMMENDED COUMADIN/WARFARIN INR THERAPY RANGESSTANDARD DOSE: 2.0 - 3.0 Includes: PROPHYLAXIS forvenous thrombosis, systemic embolization; TREATMENT for venous thrombosis and/or pulmonary embolus.HIGH RISK: Target INR is 2.5-3.5 for patients with mechanical heart valves.PLATELET [id number] 19:06:00 Test Item Value Reference Range Comments PLATELET COUNT (BEAKER) (test code = 756) 54 K/CU MM 150-45 0 BLOOD GAS, [id number] 18:49:00 Test Item Value Reference Range Comments PH ARTERIAL (BEAKER) (test code = 383) 7.46 7.35-7.45 PCO2 ARTERIAL (BEAKER) (test code = 384) 32 mmHg 35-45 PO2 ARTERIAL (BEAKER) (test code = 385) 228 mmHg 80-90 O2 SATURATION ARTERIAL (BEAKER) (test code = 99.6 % 96. 0-97.0 386) HCO3 ARTERIAL (BEAKER) (test code = 388) 23 mmol/L 21-29 BASE EXCESS ARTERIAL (BEAKER) (test code = 387) -1.0 mmol/L -2.0-3.0 PATIENT TEMPERATURE (BEAKER) (test code = 1818) 34.0 C FIO2 (BEAKER) (test code = 1819) 100.0 % HGB/HCT (H&H) - STAT [id number] 18:44:00 Test Item Value Reference Range Comments HEMOGLOBIN (BEAKER) (test code = 410) 10.1 g/dL 13.0-16.8 HEMATOCRIT (BEAKER) (test code = 411) 30.0 % 40.0-50.0 SODIUM NA-STAT [id number] 18:43:00 Test Item Value Reference Range Comments SODIUM (BEAKER) (test code = 381) 137 meq/L 135-148 POTASSIUM-STAT [id number] 18:43:00 Test Item Value Reference Range Comments POTASSIUM (BEAKER) (test code = 379) 5.0 meq/L 3.6-5.5 GLUCOSE-STAT [id number] 18:43:00 Test Item Value Reference Range Comments GLUCOSE RANDOM (BEAKER) (test code = 652) 187 mg/dL 70-110 SODIUM NA-STAT [id number] 18:22:00 Test Item Value Reference Range Comments SODIUM (BEAKER) (test code = 381) 140 meq/L 135-148 POTASSIUM-STAT [id number] 18:22:00 Test Item Value Reference Range Comments POTASSIUM (BEAKER) (test code = 379) 4.7 meq/L 3.6-5.5 BLOOD GAS, [id number] 18:22:00 Test Item Value Reference Range Comments PH ARTERIAL (BEAKER) (test code = 383) 7.38 7.35-7.45 PCO2 ARTERIAL (BEAKER) (test code = 384) 43 mmHg 35-45 PO2 ARTERIAL (BEAKER) (test code = 385) 282 mmHg 80-90 O2 SATURATION ARTERIAL (BEAKER) (test code = 99.6 % 96. 0-97.0 386) HCO3 ARTERIAL (BEAKER) (test code = 388) 26 mmol/L 21-29 BASE EXCESS ARTERIAL (BEAKER) (test code = 387) -0.8 mmol/L -2.0-3.0 PATIENT TEMPERATURE (BEAKER) (test code = 1818) 30.7 C FIO2 (BEAKER) (test code = 1819) 60.0 % GLUCOSE-STAT [id number] 18:22:00 Test Item Value Reference Range Comments GLUCOSE RANDOM (BEAKER) (test code = 652) 209 mg/dL 70-110 HGB/HCT (H&H) - STAT [id number] 18:22:00 Test Item Value Reference Range Comments HEMOGLOBIN (BEAKER) (test code = 410) 10.2 g/dL 13.0-16.8 HEMATOCRIT (BEAKER) (test code = 411) 30.0 % 40.0-50.0 BLOOD GAS, [id number] 17:57:00 Test Item Value Reference Range Comments PH ARTERIAL (BEAKER) (test code = 383) 7.37 7.35-7.45 PCO2 ARTERIAL (BEAKER) (test code = 384) 41 mmHg 35-45 PO2 ARTERIAL (BEAKER) (test code = 385) 336 mmHg 80-90 O2 SATURATION ARTERIAL (BEAKER) (test code = 99.7 % 96. 0-97.0 386) HCO3 ARTERIAL (BEAKER) (test code = 388) 26 mmol/L 21-29 BASE EXCESS ARTERIAL (BEAKER) (test code = 387) -2.3 mmol/L -2.0-3.0 PATIENT TEMPERATURE (BEAKER) (test code = 1818) 28.5 C FIO2 (BEAKER) (test code = 1819) 65.0 % GLUCOSE-STAT [id number] 17:57:00 Test Item Value Reference Range Comments GLUCOSE RANDOM (BEAKER) (test code = 652) 198 mg/dL 70-110 HGB/HCT (H&H) - STAT [id number] 17:57:00 Test Item Value Reference Range Comments HEMOGLOBIN (BEAKER) (test code = 410) 10.3 g/dL 13.0-16.8 HEMATOCRIT (BEAKER) (test code = 411) 30.0 % 40.0-50.0 SODIUM NA-STAT [id number] 17:56:00 Test Item Value Reference Range Comments SODIUM (BEAKER) (test code = 381) 138 meq/L 135-148 POTASSIUM-STAT [id number] 17:56:00 Test Item Value Reference Range Comments POTASSIUM (BEAKER) (test code = 379) 4.7 meq/L 3.6-5.5 BLOOD GAS, [id number] 17:28:00 Test Item Value Reference Range Comments PH ARTERIAL (BEAKER) (test code = 383) 7.37 7.35-7.45 PCO2 ARTERIAL (BEAKER) (test code = 384) 40 mmHg 35-45 PO2 ARTERIAL (BEAKER) (test code = 385) 337 mmHg 80-90 O2 SATURATION ARTERIAL (BEAKER) (test code = 99.7 % 96. 0-97.0 386) HCO3 ARTERIAL (BEAKER) (test code = 388) 25 mmol/L 21-29 BASE EXCESS ARTERIAL (BEAKER) (test code = 387) -2.5 mmol/L -2.0-3.0 PATIENT TEMPERATURE (BEAKER) (test code = 1818) 28.2 C FIO2 (BEAKER) (test code = 1819) 65.0 % GLUCOSE-STAT [id number] 17:28:00 Test Item Value Reference Range Comments GLUCOSE RANDOM (BEAKER) (test code = 652) 223 mg/dL 70-110 HGB/HCT (H&H) - STAT [id number] 17:28:00 Test Item Value Reference Range Comments HEMOGLOBIN (BEAKER) (test code = 410) 10.1 g/dL 13.0-16.8 HEMATOCRIT (BEAKER) (test code = 411) 30.0 % 40.0-50.0 SODIUM NA-STAT [id number] 17:27:00 Test Item Value Reference Range Comments SODIUM (BEAKER) (test code = 381) 140 meq/L 135-148 POTASSIUM-STAT [id number] 17:27:00 Test Item Value Reference Range Comments POTASSIUM (BEAKER) (test code = 379) 4.8 meq/L 3.6-5.5 THROMBOELASTOGRAPH ([id number] 17:02:00 Test Item Value Reference Range Comments TEG ACTIVATED CLOTTING TIME (BEAKER) minutes 4.0-7.0 No clot detected. (test code = 1407) TEG FIBRINOGEN ACTIVITY (BEAKER) (test degrees 61.0-73.0 No clot detected. code = 1408) TEG PLT. AGGREGATION (BEAKER) (test MM 55.0-65.0 No clot detected. code = 1409) TEG FIBRINOLYSIS (BEAKER) (test code = % 0.0-5.0 No clot detected. 1410) TGH ACTIVATED CLOTTING TIME (BEAKER) 8.8 minutes 4.0-7.0 (test code = 1411) TGH FIBRINOGEN ACTIVITY (BEAKER) (test 59.5 degrees 61.0-73.0 code = 1412) TGH PLT. AGGREGATION (BEAKER) (test 54.0 MM 55.0-65.0 code = 1413) TGH FIBRINOLYSIS (BEAKER) (test code = 0.0 % 0.0-5.0 1414) HGB/HCT (H&H) - STAT [id number] 17:01:00 Test Item Value Reference Range Comments HEMOGLOBIN (BEAKER) (test code = 410) 10.1 g/dL 13.0-16.8 HEMATOCRIT (BEAKER) (test code = 411) 30.0 % 40.0-50.0 BLOOD GAS, [id number] 17:00:00 Test Item Value Reference Range Comments PH ARTERIAL (BEAKER) (test code = 383) 7.37 7.35-7.45 PCO2 ARTERIAL (BEAKER) (test code = 384) 39 mmHg 35-45 PO2 ARTERIAL (BEAKER) (test code = 385) 310 mmHg 80-90 O2 SATURATION ARTERIAL (BEAKER) (test code = 99.7 % 96. 0-97.0 386) HCO3 ARTERIAL (BEAKER) (test code = 388) 25 mmol/L 21-29 BASE EXCESS ARTERIAL (BEAKER) (test code = 387) -2.9 mmol/L -2.0-3.0 PATIENT TEMPERATURE (BEAKER) (test code = 1818) 28.5 C FIO2 (BEAKER) (test code = 1819) 65.0 % GLUCOSE-STAT [id number] 17:00:00 Test Item Value Reference Range Comments GLUCOSE RANDOM (BEAKER) (test code = 652) 243 mg/dL 70-110 SODIUM NA-STAT [id number] 16:59:00 Test Item Value Reference Range Comments SODIUM (BEAKER) (test code = 381) 139 meq/L 135-148 POTASSIUM-STAT [id number] 16:59:00 Test Item Value Reference Range Comments POTASSIUM (BEAKER) (test code = 379) 4.6 meq/L 3.6-5.5 [id number] 16:47:00 Test Item Value Reference Range Comments PARTIAL THROMBOPLASTIN TIME (BEAKER) (test code = > seconds 22.5-36.0 760) BLOOD GAS, [id number] 16:18:00 Test Item Value Reference Range Comments PH ARTERIAL (BEAKER) (test code = 383) 7.50 7.35-7.45 PCO2 ARTERIAL (BEAKER) (test code = 384) 30 mmHg 35-45 PO2 ARTERIAL (BEAKER) (test code = 385) 306 mmHg 80-90 O2 SATURATION ARTERIAL (BEAKER) (test code = 386) 99.8 % 96.0-97.0 HCO3 ARTERIAL (BEAKER) (test code = 388) 25 mmol/L 21-29 BASE EXCESS ARTERIAL (BEAKER) (test code = 387) 0.0 mmol/L -2.0-3.0 PATIENT TEMPERATURE (BEAKER) (test code = 1818) 27.9 C FIO2 (BEAKER) (test code = 1819) 65.0 % GLUCOSE-STAT [id number] 16:18:00 Test Item Value Reference Range Comments GLUCOSE RANDOM (BEAKER) (test code = 652) 279 mg/dL 70-110 HGB/HCT (H&H) - STAT [id number] 16:18:00 Test Item Value Reference Range Comments HEMOGLOBIN (BEAKER) (test code = 410) 7.0 g/dL 13.0-16.8 HEMATOCRIT (BEAKER) (test code = 411) 21.0 % 40.0-50.0 SODIUM NA-STAT [id number] 16:17:00 Test Item Value Reference Range Comments SODIUM (BEAKER) (test code = 381) 137 meq/L 135-148 POTASSIUM-STAT [id number] 16:17:00 Test Item Value Reference Range Comments POTASSIUM (BEAKER) (test code = 379) 4.6 meq/L 3.6-5.5 [id number] 16:15:00 Test Item Value Reference Range Comments FIBRINOGEN LEVEL (BEAKER) (test code = 658) 255 mg/dl 225- 434 PROTHROMBIN [id number] 16:14:00 Test Item Value Reference Range Comments PROTIME (BEAKER) (test code = 759) 20.2 seconds 11.7-14.7 INR (BEAKER) (test code = 370) 1.7 <=5.9 RECOMMENDED COUMADIN/WARFARIN INR THERAPY RANGESSTANDARD DOSE: 2.0 - 3.0 Includes: PROPHYLAXIS forvenous thrombosis, systemic embolization; TREATMENT for venous thrombosis and/or pulmonary embolus.HIGH RISK: Target INR is 2.5-3.5 for patients with mechanical heart valves.PLATELET [id number] 16:02:00 Test Item Value Reference Range Comments PLATELET COUNT (BEAKER) (test code = 756) 57 K/CU MM 150-45 0 CALCIUM, [id number] 15:51:00 Test Item Value Reference Range Comments CALCIUM IONIZED (BEAKER) (test code = 698) 0.82 mmol/L 1.12- 1.27 PH, BLOOD (BEAKER) (test code = 1810) 7.45 BLOOD GAS, [id number] 15:51:00 Test Item Value Reference Range Comments PH ARTERIAL (BEAKER) (test code = 383) 7.45 7.35-7.45 PCO2 ARTERIAL (BEAKER) (test code = 384) 40 mmHg 35-45 PO2 ARTERIAL (BEAKER) (test code = 385) 336 mmHg 80-90 O2 SATURATION ARTERIAL (BEAKER) (test code = 386) 99.8 % 96.0-97.0 HCO3 ARTERIAL (BEAKER) (test code = 388) 28 mmol/L 21-29 BASE EXCESS ARTERIAL (BEAKER) (test code = 387) 3.1 mmol/L -2.0-3.0 PATIENT TEMPERATURE (BEAKER) (test code = 1818) 35.6 C FIO2 (BEAKER) (test code = 1819) 100.0 % GLUCOSE-STAT [id number] 15:51:00 Test Item Value Reference Range Comments GLUCOSE RANDOM (BEAKER) (test code = 652) 190 mg/dL 70-110 HGB/HCT (H&H) - STAT [id number] 15:51:00 Test Item Value Reference Range Comments HEMOGLOBIN (BEAKER) (test code = 410) 7.6 g/dL 13.0-16.8 HEMATOCRIT (BEAKER) (test code = 411) 22.0 % 40.0-50.0 POTASSIUM-STAT [id number] 15:51:00 Test Item Value Reference Range Comments POTASSIUM (BEAKER) (test code = 379) 5.6 meq/L 3.6-5.5 SODIUM NA-STAT [id number] 15:50:00 Test Item Value Reference Range Comments SODIUM (BEAKER) (test code = 381) 139 meq/L 135-148 BLOOD GAS, [id number] 15:43:00 Test Item Value Reference Range Comments PH ARTERIAL (BEAKER) (test code = 383) 7.45 7.35-7.45 PCO2 ARTERIAL (BEAKER) (test code = 384) 39 mmHg 35-45 PO2 ARTERIAL (BEAKER) (test code = 385) 315 mmHg 80-90 O2 SATURATION ARTERIAL (BEAKER) (test code = 386) 99.7 % 96.0-97.0 HCO3 ARTERIAL (BEAKER) (test code = 388) 27 mmol/L 21-29 BASE EXCESS ARTERIAL (BEAKER) (test code = 387) 1.9 mmol/L -2.0-3.0 PATIENT TEMPERATURE (BEAKER) (test code = 1818) 34.1 C FIO2 (BEAKER) (test code = 1819) 75.0 % GLUCOSE-STAT [id number] 15:43:00 Test Item Value Reference Range Comments GLUCOSE RANDOM (BEAKER) (test code = 652) 189 mg/dL 70-110 HGB/HCT (H&H) - STAT [id number] 15:43:00 Test Item Value Reference Range Comments HEMOGLOBIN (BEAKER) (test code = 410) 8.0 g/dL 13.0-16.8 HEMATOCRIT (BEAKER) (test code = 411) 24.0 % 40.0-50.0 POTASSIUM-STAT [id number] 15:43:00 Test Item Value Reference Range Comments POTASSIUM (BEAKER) (test code = 379) 5.7 meq/L 3.6-5.5 SODIUM NA-STAT [id number] 15:42:00 Test Item Value Reference Range Comments SODIUM (BEAKER) (test code = 381) 136 meq/L 135-148 SODIUM NA-STAT [id number] 15:06:00 Test Item Value Reference Range Comments SODIUM (BEAKER) (test code = 381) 139 meq/L 135-148 BLOOD GAS, [id number] 15:06:00 Test Item Value Reference Range Comments PH ARTERIAL (BEAKER) (test code = 383) 7.45 7.35-7.45 PCO2 ARTERIAL (BEAKER) (test code = 384) 40 mmHg 35-45 PO2 ARTERIAL (BEAKER) (test code = 385) 293 mmHg 80-90 O2 SATURATION ARTERIAL (BEAKER) (test code = 386) 99.7 % 96.0-97.0 HCO3 ARTERIAL (BEAKER) (test code = 388) 31 mmol/L 21-29 BASE EXCESS ARTERIAL (BEAKER) (test code = 387) 3.6 mmol/L -2.0-3.0 PATIENT TEMPERATURE (BEAKER) (test code = 1818) 26.7 C FIO2 (BEAKER) (test code = 1819) 60.0 % POTASSIUM-STAT [id number] 15:06:00 Test Item Value Reference Range Comments POTASSIUM (BEAKER) (test code = 379) 5.8 meq/L 3.6-5.5 GLUCOSE-STAT [id number] 15:06:00 Test Item Value Reference Range Comments GLUCOSE RANDOM (BEAKER) (test code = 652) 192 mg/dL 70-110 HGB/HCT (H&H) - STAT [id number] 15:06:00 Test Item Value Reference Range Comments HEMOGLOBIN (BEAKER) (test code = 410) 8.2 g/dL 13.0-16.8 HEMATOCRIT (BEAKER) (test code = 411) 24.0 % 40.0-50.0 POTASSIUM-STAT [id number] 14:41:00 Test Item Value Reference Range Comments POTASSIUM (BEAKER) (test code = 379) 5.2 meq/L 3.6-5.5 BLOOD GAS, [id number] 14:41:00 Test Item Value Reference Range Comments PH ARTERIAL (BEAKER) (test code = 383) 7.43 7.35-7.45 PCO2 ARTERIAL (BEAKER) (test code = 384) 40 mmHg 35-45 PO2 ARTERIAL (BEAKER) (test code = 385) 321 mmHg 80-90 O2 SATURATION ARTERIAL (BEAKER) (test code = 386) 99.7 % 96.0-97.0 HCO3 ARTERIAL (BEAKER) (test code = 388) 29 mmol/L 21-29 BASE EXCESS ARTERIAL (BEAKER) (test code = 387) 2.1 mmol/L -2.0-3.0 PATIENT TEMPERATURE (BEAKER) (test code = 1818) 26.6 C FIO2 (BEAKER) (test code = 1819) 60.0 % SODIUM NA-STAT [id number] 14:41:00 Test Item Value Reference Range Comments SODIUM (BEAKER) (test code = 381) 134 meq/L 135-148 GLUCOSE-STAT [id number] 14:41:00 Test Item Value Reference Range Comments GLUCOSE RANDOM (BEAKER) (test code = 652) 195 mg/dL 70-110 HGB/HCT (H&H) - STAT [id number] 14:41:00 Test Item Value Reference Range Comments HEMOGLOBIN (BEAKER) (test code = 410) 8.2 g/dL 13.0-16.8 HEMATOCRIT (BEAKER) (test code = 411) 24.0 % 40.0-50.0 BLOOD GAS, [id number] 14:10:00 Test Item Value Reference Range Comments PH ARTERIAL (BEAKER) (test code = 383) 7.41 7.35-7.45 PCO2 ARTERIAL (BEAKER) (test code = 384) 41 mmHg 35-45 PO2 ARTERIAL (BEAKER) (test code = 385) 313 mmHg 80-90 O2 SATURATION ARTERIAL (BEAKER) (test code = 386) 99.7 % 96.0-97.0 HCO3 ARTERIAL (BEAKER) (test code = 388) 29 mmol/L 21-29 BASE EXCESS ARTERIAL (BEAKER) (test code = 387) 1.4 mmol/L -2.0-3.0 PATIENT TEMPERATURE (BEAKER) (test code = 1818) 27.0 C FIO2 (BEAKER) (test code = 1819) 60.0 % GLUCOSE-STAT [id number] 14:10:00 Test Item Value Reference Range Comments GLUCOSE RANDOM (BEAKER) (test code = 652) 177 mg/dL 70-110 HGB/HCT (H&H) - STAT [id number] 14:10:00 Test Item Value Reference Range Comments HEMOGLOBIN (BEAKER) (test code = 410) 8.5 g/dL 13.0-16.8 HEMATOCRIT (BEAKER) (test code = 411) 25.0 % 40.0-50.0 SODIUM NA-STAT [id number] 14:09:00 Test Item Value Reference Range Comments SODIUM (BEAKER) (test code = 381) 136 meq/L 135-148 POTASSIUM-STAT [id number] 14:09:00 Test Item Value Reference Range Comments POTASSIUM (BEAKER) (test code = 379) 5.0 meq/L 3.6-5.5 SODIUM NA-STAT [id number] 13:39:00 Test Item Value Reference Range Comments SODIUM (BEAKER) (test code = 381) 136 meq/L 135-148 POTASSIUM-STAT [id number] 13:39:00 Test Item Value Reference Range Comments POTASSIUM (BEAKER) (test code = 379) 5.0 meq/L 3.6-5.5 BLOOD GAS, [id number] 13:39:00 Test Item Value Reference Range Comments PH ARTERIAL (BEAKER) (test code = 383) 7.46 7.35-7.45 PCO2 ARTERIAL (BEAKER) (test code = 384) 37 mmHg 35-45 PO2 ARTERIAL (BEAKER) (test code = 385) 246 mmHg 80-90 O2 SATURATION ARTERIAL (BEAKER) (test code = 386) 99.6 % 96.0-97.0 HCO3 ARTERIAL (BEAKER) (test code = 388) 29 mmol/L 21-29 BASE EXCESS ARTERIAL (BEAKER) (test code = 387) 1.7 mmol/L -2.0-3.0 PATIENT TEMPERATURE (BEAKER) (test code = 1818) 26.5 C FIO2 (BEAKER) (test code = 1819) 60.0 % GLUCOSE-STAT [id number] 13:39:00 Test Item Value Reference Range Comments GLUCOSE RANDOM (BEAKER) (test code = 652) 179 mg/dL 70-110 HGB/HCT (H&H) - STAT [id number] 13:39:00 Test Item Value Reference Range Comments HEMOGLOBIN (BEAKER) (test code = 410) 8.1 g/dL 13.0-16.8 HEMATOCRIT (BEAKER) (test code = 411) 24.0 % 40.0-50.0 CALCIUM, [id number] 12:31:00 Test Item Value Reference Range Comments CALCIUM IONIZED (BEAKER) (test code = 698) 1.09 mmol/L 1.12- 1.27 PH, BLOOD (BEAKER) (test code = 1810) 7.45 GLUCOSE-STAT [id number] 12:30:00 Test Item Value Reference Range Comments GLUCOSE RANDOM (BEAKER) (test code = 652) 93 mg/dL 70-110 SODIUM NA-STAT [id number] 12:30:00 Test Item Value Reference Range Comments SODIUM (BEAKER) (test code = 381) 140 meq/L 135-148 POTASSIUM-STAT [id number] 12:30:00 Test Item Value Reference Range Comments POTASSIUM (BEAKER) (test code = 379) 3.9 meq/L 3.6-5.5 BLOOD GAS, [id number] 12:30:00 Test Item Value Reference Range Comments PH ARTERIAL (BEAKER) (test code = 383) 7.48 7.35-7.45 PCO2 ARTERIAL (BEAKER) (test code = 384) 39 mmHg 35-45 PO2 ARTERIAL (BEAKER) (test code = 385) 128 mmHg 80-90 O2 SATURATION ARTERIAL (BEAKER) (test code = 386) 98.9 % 96.0-97.0 HCO3 ARTERIAL (BEAKER) (test code = 388) 29 mmol/L 21-29 BASE EXCESS ARTERIAL (BEAKER) (test code = 387) 4.1 mmol/L -2.0-3.0 PATIENT TEMPERATURE (BEAKER) (test code = 1818) 35.0 C FIO2 (BEAKER) (test code = 1819) 100.0 % HGB/HCT (H&H) - STAT [id number] 12:30:00 Test Item Value Reference Range Comments HEMOGLOBIN (BEAKER) (test code = 410) 9.3 g/dL 13.0-16.8 HEMATOCRIT (BEAKER) (test code = 411) 27.0 % 40.0-50.0 HEMOGLOBIN [id number] 10:02:00 Test Item Value Reference Range Comments HEMOGLOBIN A1C (BEAKER) (test code = 368) 4.4 % 4.3-6. 1 POCT-GLUCOSE [id number] 09:52:00 Test Item Value Reference Range Comments POC-GLUCOSE METER (BEAKER) 115 mg/dL 70-110 TESTE D AT [facility] [address] (test code = 1538) [place] [address] PROTHROMBIN [id number] 02:41:00 Test Item Value Reference Range Comments PROTIME (BEAKER) (test code = 759) 14.9 seconds 11.7-14.7 INR (BEAKER) (test code = 370) 1.2 <=5.9 RECOMMENDED COUMADIN/WARFARIN INR THERAPY RANGESSTANDARD DOSE: 2.0 - 3.0 Includes: PROPHYLAXIS forvenous thrombosis, systemic embolization; TREATMENT for venous thrombosis and/or pulmonary embolus.HIGH RISK: Target INR is 2.5-3.5 for patients with mechanical heart valves.BASIC METABOLIC [id number] 00:29:00 Test Item Value Reference Range Comments SODIUM (BEAKER) (test 137 meq/L 136-145 code = 381) POTASSIUM (BEAKER) (test 4.4 meq/L 3.5-5.1 Specime n slightly code = 379) hemolyzed CHLORIDE (BEAKER) (test 100 meq/L 98-107 code = 382) CO2 (BEAKER) (test code = 25 meq/L 22-29 355) BLOOD UREA NITROGEN 32 mg/dL 7-21 (BEAKER) (test code = 354) CREATININE (BEAKER) (test 5.79 mg/dL 0.57-1.25 Specim en slightly code = 358) hemolyzed GLUCOSE RANDOM (BEAKER) 126 mg/dL 70-105 (test code = 652) CALCIUM (BEAKER) (test 9.8 mg/dL 8.4-10.2 code = 697) EGFR (BEAKER) (test code 12 mL/min/1.73 sq m EST IMATED GFR IS NOT = 1092) ACCURATE CREA TININE CLEARANCE IN PRE DICTING GLOMERULAR FILTR ATION RATE. ESTIMATED GFR IS NOT APPLICABLE F OR DIALYSIS PATIENT S. [id number] 00:22:00 Test Item Value Reference Range Comments MAGNESIUM (BEAKER) (test code = 2.5 mg/dL 1.6-2.6 Specimen slightly hemolyzed 627) [id number] 00:14:00 Test Item Value Reference Range Comments PARTIAL THROMBOPLASTIN TIME (BEAKER) (test code 38.6 seconds 22.5-36.0 = 760) CBC W/PLT COUNT & AUTO [id number] 00:07:00 Test Item Value Reference Range Comments WHITE BLOOD CELL COUNT (BEAKER) (test code = 5.2 K/ L 3.5 -10.5 775) RED BLOOD CELL COUNT (BEAKER) (test code = 761) 3.16 M/ L 4.63-6.08 HEMOGLOBIN (BEAKER) (test code = 410) 10.1 GM/DL 13.7-17.5 HEMATOCRIT (BEAKER) (test code = 411) 31.4 % 40.1-51.0 MEAN CORPUSCULAR VOLUME (BEAKER) (test code = 99.4 fL 79 .0-92.2 753) MEAN CORPUSCULAR HEMOGLOBIN (BEAKER) (test code 32.0 pg 25.7-32.2 = 751) MEAN CORPUSCULAR HEMOGLOBIN CONC (BEAKER) (test 32.2 GM/DL 32.3-36.5 code = 752) RED CELL DISTRIBUTION WIDTH (BEAKER) (test code 16.7 % 11.6-14.4 = 412) PLATELET COUNT (BEAKER) (test code = 756) 112 K/CU MM 150-45 0 MEAN PLATELET VOLUME (BEAKER) (test code = 754) 9.6 fL 9.4-12.4 NUCLEATED RED BLOOD CELLS (BEAKER) (test code = 0 /100 WBC 0-0 413) NEUTROPHILS RELATIVE PERCENT (BEAKER) (test code 69 % = 429) LYMPHOCYTES RELATIVE PERCENT (BEAKER) (test code 19 % = 430) MONOCYTES RELATIVE PERCENT (BEAKER) (test code = 10 % 431) EOSINOPHILS RELATIVE PERCENT (BEAKER) (test code 1 % = 432) BASOPHILS RELATIVE PERCENT (BEAKER) (test code = 1 % 437) NEUTROPHILS ABSOLUTE COUNT (BEAKER) (test code = 3.58 K/ L 1.78-5.38 670) LYMPHOCYTES ABSOLUTE COUNT (BEAKER) (test code = 0.98 K/ L 1.32-3.57 414) MONOCYTES ABSOLUTE COUNT (BEAKER) (test code = 0.49 K/ L 0 .30-0.82 415) EOSINOPHILS ABSOLUTE COUNT (BEAKER) (test code = 0.07 K/ L 0.04-0.54 416) BASOPHILS ABSOLUTE COUNT (BEAKER) (test code = 0.04 K/ L 0 .01-0.08 417) IMMATURE GRANULOCYTES-RELATIVE PERCENT (BEAKER) 0 % 0-1 (test code = 2801) [id number] 17:03:00 Test Item Value Reference Range Comments THYROID STIMULATING HORMONE (BEAKER) (test code 1.30 uIU/mL 0.35-4.94 = 772) HEPATIC FUNCTION [id number] 16:43:00 Test Item Value Reference Range Comments TOTAL PROTEIN (BEAKER) (test code = 770) 8.0 gm/dL 6.0-8.3 ALBUMIN (BEAKER) (test code = 1145) 3.9 g/dL 3.5-5.0 BILIRUBIN TOTAL (BEAKER) (test code = 377) 1.3 mg/dL 0.2-1 .2 BILIRUBIN DIRECT (BEAKER) (test code = 706) 0.7 mg/dL 0.1- 0.5 ALKALINE PHOSPHATASE (BEAKER) (test code = 346) 74 U/L 40-150 AST (SGOT) (BEAKER) (test code = 353) 60 U/L 5-34 ALT (SGPT) (BEAKER) (test code = 347) 69 U/L 6-55 BASIC METABOLIC [id number] 15:47:00 Test Item Value Reference Range Comments SODIUM (BEAKER) (test 135 meq/L 136-145 code = 381) POTASSIUM (BEAKER) (test 4.5 meq/L 3.5-5.1 code = 379) CHLORIDE (BEAKER) (test 94 meq/L 98-107 code = 382) CO2 (BEAKER) (test code = 23 meq/L 22-29 355) BLOOD UREA NITROGEN 78 mg/dL 7-21 (BEAKER) (test code = 354) CREATININE (BEAKER) (test 10.41 mg/dL 0.57-1.25 code = 358) GLUCOSE RANDOM (BEAKER) 111 mg/dL 70-105 (test code = 652) CALCIUM (BEAKER) (test 9.9 mg/dL 8.4-10.2 code = 697) EGFR (BEAKER) (test code 6 mL/min/1.73 sq m OK MATED GFR IS NOT = 1092) ACCURATE CREA TININE CLEARANCE IN PRE DICTING GLOMERULAR FILTR ATION RATE. ESTIMATED GFR IS NOT APPLICABLE F OR DIALYSIS PATIENT S. [id number] 14:57:00 Test Item Value Reference Range Comments PARTIAL THROMBOPLASTIN TIME (BEAKER) (test code 82.9 seconds 22.5-36.0 = 760) CBC W/PLT COUNT & AUTO [id number] 14:48:00 Test Item Value Reference Range Comments WHITE BLOOD CELL COUNT (BEAKER) (test code = 6.6 K/ L 3.5 -10.5 775) RED BLOOD CELL COUNT (BEAKER) (test code = 761) 3.02 M/ L 4.63-6.08 HEMOGLOBIN (BEAKER) (test code = 410) 9.9 GM/DL 13.7-17.5 HEMATOCRIT (BEAKER) (test code = 411) 29.3 % 40.1-51.0 MEAN CORPUSCULAR VOLUME (BEAKER) (test code = 97.0 fL 79 .0-92.2 753) MEAN CORPUSCULAR HEMOGLOBIN (BEAKER) (test code 32.8 pg 25.7-32.2 = 751) MEAN CORPUSCULAR HEMOGLOBIN CONC (BEAKER) (test 33.8 GM/DL 32.3-36.5 code = 752) RED CELL DISTRIBUTION WIDTH (BEAKER) (test code 16.7 % 11.6-14.4 = 412) PLATELET COUNT (BEAKER) (test code = 756) 116 K/CU MM 150-45 0 MEAN PLATELET VOLUME (BEAKER) (test code = 754) 9.9 fL 9.4-12.4 NUCLEATED RED BLOOD CELLS (BEAKER) (test code = 0 /100 WBC 0-0 413) NEUTROPHILS RELATIVE PERCENT (BEAKER) (test code 68 % = 429) LYMPHOCYTES RELATIVE PERCENT (BEAKER) (test code 20 % = 430) MONOCYTES RELATIVE PERCENT (BEAKER) (test code = 10 % 431) EOSINOPHILS RELATIVE PERCENT (BEAKER) (test code 1 % = 432) BASOPHILS RELATIVE PERCENT (BEAKER) (test code = 0 % 437) NEUTROPHILS ABSOLUTE COUNT (BEAKER) (test code = 4.44 K/ L 1.78-5.38 670) LYMPHOCYTES ABSOLUTE COUNT (BEAKER) (test code = 1.33 K/ L 1.32-3.57 414) MONOCYTES ABSOLUTE COUNT (BEAKER) (test code = 0.66 K/ L 0 .30-0.82 415) EOSINOPHILS ABSOLUTE COUNT (BEAKER) (test code = 0.06 K/ L 0.04-0.54 416) BASOPHILS ABSOLUTE COUNT (BEAKER) (test code = 0.02 K/ L 0 .01-0.08 417) IMMATURE GRANULOCYTES-RELATIVE PERCENT (BEAKER) 1 % 0-1 (test code = 2801) POCT-GLUCOSE [id number] 11:13:00 Test Item Value Reference Range Comments POC-GLUCOSE METER (BEAKER) 207 mg/dL 70-110 TESTE D AT [address] (test code = 1538) [place] [id number] POCT-GLUCOSE [id number] 08:08:00 Test Item Value Reference Range Comments POC-GLUCOSE METER (BEAKER) 124 mg/dL 70-110 TESTE D AT [address] (test code = 1538) [place] [id number] [id number] 06:51:00 Test Item Value Reference Range Comments PARTIAL THROMBOPLASTIN TIME (BEAKER) (test code 54.6 seconds 22.5-36.0 = 760) HEPATITIS B SURFACE [id number] 00:28:00 Test Item Value Reference Range Comments HEPATITIS B SURFACE ANTIGEN (2) (BEAKER) (test Nonreactive N onreactive code = 2585) [id number] 00:06:00 Test Item Value Reference Range Comments PHOSPHORUS (BEAKER) (test code = 604) 3.2 mg/dL 2.3-4.7 [id number] 00:03:00 Test Item Value Reference Range Comments PARTIAL THROMBOPLASTIN TIME (BEAKER) (test code 36.0 seconds 22.5-36.0 = 760) CBC W/PLT COUNT & AUTO [id number] 23:45:00 Test Item Value Reference Range Comments WHITE BLOOD CELL COUNT (BEAKER) (test code = 5.8 K/ L 3.5 -10.5 775) RED BLOOD CELL COUNT (BEAKER) (test code = 761) 2.99 M/ L 4.63-6.08 HEMOGLOBIN (BEAKER) (test code = 410) 9.7 GM/DL 13.7-17.5 HEMATOCRIT (BEAKER) (test code = 411) 29.3 % 40.1-51.0 MEAN CORPUSCULAR VOLUME (BEAKER) (test code = 98.0 fL 79 .0-92.2 753) MEAN CORPUSCULAR HEMOGLOBIN (BEAKER) (test code 32.4 pg 25.7-32.2 = 751) MEAN CORPUSCULAR HEMOGLOBIN CONC (BEAKER) (test 33.1 GM/DL 32.3-36.5 code = 752) RED CELL DISTRIBUTION WIDTH (BEAKER) (test code 16.5 % 11.6-14.4 = 412) PLATELET COUNT (BEAKER) (test code = 756) 103 K/CU MM 150-45 0 MEAN PLATELET VOLUME (BEAKER) (test code = 754) 9.5 fL 9.4-12.4 NUCLEATED RED BLOOD CELLS (BEAKER) (test code = 0 /100 WBC 0-0 413) NEUTROPHILS RELATIVE PERCENT (BEAKER) (test code 66 % = 429) LYMPHOCYTES RELATIVE PERCENT (BEAKER) (test code 22 % = 430) MONOCYTES RELATIVE PERCENT (BEAKER) (test code = 10 % 431) EOSINOPHILS RELATIVE PERCENT (BEAKER) (test code 2 % = 432) BASOPHILS RELATIVE PERCENT (BEAKER) (test code = 1 % 437) NEUTROPHILS ABSOLUTE COUNT (BEAKER) (test code = 3.79 K/ L 1.78-5.38 670) LYMPHOCYTES ABSOLUTE COUNT (BEAKER) (test code = 1.26 K/ L 1.32-3.57 414) MONOCYTES ABSOLUTE COUNT (BEAKER) (test code = 0.59 K/ L 0 .30-0.82 415) EOSINOPHILS ABSOLUTE COUNT (BEAKER) (test code = 0.10 K/ L 0.04-0.54 416) BASOPHILS ABSOLUTE COUNT (BEAKER) (test code = 0.03 K/ L 0 .01-0.08 417) IMMATURE GRANULOCYTES-RELATIVE PERCENT (BEAKER) 0 % 0-1 (test code = 2801) POCT-GLUCOSE [id number] 17:39:00 Test Item Value Reference Range Comments POC-GLUCOSE METER (BEAKER) 116 mg/dL 70-110 TESTE D AT [address] (test code = 1538) [place] [id number] [id number] 15:35:00 Test Item Value Reference Range Comments THYROID STIMULATING HORMONE (BEAKER) (test code 1.39 uIU/mL 0.35-4.94 = 772) [id number] 15:06:00 Test Item Value Reference Range Comments PARTIAL THROMBOPLASTIN TIME (BEAKER) (test code 31.0 seconds 22.5-36.0 = 760) Prior to initiating heparinPROTHROMBIN TIME/[id number] 15:05:00 Test Item Value Reference Range Comments PROTIME (BEAKER) (test code = 759) 14.4 seconds 11.7-14.7 INR (BEAKER) (test code = 370) 1.1 <=5.9 RECOMMENDED COUMADIN/WARFARIN INR THERAPY RANGESSTANDARD DOSE: 2.0 - 3.0 Includes: PROPHYLAXIS forvenous thrombosis, systemic embolization; TREATMENT for venous thrombosis and/or pulmonary embolus.HIGH RISK: Target INR is 2.5-3.5 for patients with mechanical heart valves.PLATELET [id number] 14:52:00 Test Item Value Reference Range Comments PLATELET COUNT (BEAKER) (test code = 756) 109 K/CU MM 150-45 0 POCT-GLUCOSE [id number] 12:00:00 Test Item Value Reference Range Comments POC-GLUCOSE METER (BEAKER) 186 mg/dL 70-110 TESTE D AT [place] [id number] [facility] (test code = 1538) [place] [id number] RAD, CHEST, 1 VIEW, NON [id number] 11:43:00Reason for exam:->SOB, known severe MRShould this be performed at the bedside?->YesFINAL REPORT Chest one view AP 01/08/2018 11:42 AM CLINICAL INDICATION: SOB, kno wn severe MR COMPARISON: 12/02/2017 IMPRESSION: Cardiomediastinal contours are stable. There is mild pulmonary edema. There are trace bilateral pleural effusions. Signed: Yevgeniy Anderson Verified Date/Time: 01/08/2018 11:43:52 Reading Location: [facility] Radiology Reading Room Electronic ally signed by: YEVGENIY ANDERSON M.D. on 01/08/2018 11:43 AMRAPID CK-MB 2017-12-02 10:04:00 Test Item Value Reference Range Comments RAPID CKMB (BEAKER) (test code = 1482) 1.5 ng/mL 0.0-4.3 RAPID TROPONIN [id number] 10:04:00 Test Item Value Reference Range Comments RAPID TROPONIN I (BEAKER) (test code = 1483) < ng/mL <0. 05 RAD, CHEST, 2 [id number] 10:00:00Reason for exam:->Chest PainFINAL REPORT Chest two views Discussion: Heart size upper limits of normal. Bilateral interstitial edema with small bilateral effusions. No pneumothorax. Bones and soft tissues unremarkable. Signed: Rhea Colindres Verified Date/Time: 12/02/2017 10:00:39 Reading Location:[facility] Radiology Reading Room B-TYPE NATRIURETIC FACTOR (BNP)2017-12-02 09:56:00 Test Item Value Reference Range Comments B-TYPE NATRIURETIC PEPTIDE (BEAKER) (test code = 1990 pg/mL 0-100 700) BASIC METABOLIC [id number] 09:52:00 Test Item Value Reference Range Comments SODIUM (BEAKER) (test 141 meq/L 135-148 code = 381) POTASSIUM (BEAKER) (test 3.9 meq/L 3.6-5.5 code = 379) CHLORIDE (BEAKER) (test 94 meq/L 98-106 code = 382) CO2 (BEAKER) (test code = 28 meq/L 24-32 355) BLOOD UREA NITROGEN 59 mg/dL 10-26 (BEAKER) (test code = 354) CREATININE (BEAKER) (test 8.47 mg/dL 0.50-1.20 code = 358) GLUCOSE RANDOM (BEAKER) 89 mg/dL 70-110 (test code = 652) CALCIUM (BEAKER) (test 9.5 mg/dL 8.5-10.5 code = 697) EGFR (BEAKER) (test code 8 mL/min/1.73 sq m OK MATED GFR IS NOT = 1092) ACCURATE CREA TININE CLEARANCE IN PRE DICTING GLOMERULAR FILTR ATION RATE. ESTIMATED GFR IS NOT APPLICABLE F OR DIALYSIS PATIENT S. [id number] 09:51:00 Test Item Value Reference Range Comments MAGNESIUM (BEAKER) (test code = 627) 1.7 mg/dL 1.5-3.0 CBC W/PLT COUNT & AUTO [id number] 09:50:00 Test Item Value Reference Range Comments WHITE BLOOD CELL COUNT (BEAKER) (test code = 5.7 10e3/ L 4.0 -10.0 775) RED BLOOD CELL COUNT (BEAKER) (test code = 761) 2.81 10e6/ L 4.20-5.80 HEMOGLOBIN (BEAKER) (test code = 410) 9.1 g/dL 13.0-16.8 HEMATOCRIT (BEAKER) (test code = 411) 26.7 % 40.0-50.0 MEAN CORPUSCULAR VOLUME (BEAKER) (test code = 94.8 fL 82 .0-98.0 753) MEAN CORPUSCULAR HEMOGLOBIN (BEAKER) (test code 32.4 pg 27.0-33.0 = 751) MEAN CORPUSCULAR HEMOGLOBIN CONC (BEAKER) (test 34.1 g/dL 32.0-36.0 code = 752) RED CELL DISTRIBUTION WIDTH (BEAKER) (test code 12.6 % 10.3-14.2 = 412) PLATELET COUNT (BEAKER) (test code = 756) 120 10e3/ L 150-43 0 MEAN PLATELET VOLUME (BEAKER) (test code = 754) 7.6 fL 6.5-10.5 NEUTROPHILS RELATIVE PERCENT (BEAKER) (test 72 % code = 429) LYMPHOCYTES RELATIVE PERCENT (BEAKER) (test 17 % code = 430) MONOCYTES RELATIVE PERCENT (BEAKER) (test code 9 % = 431) EOSINOPHILS RELATIVE PERCENT (BEAKER) (test 2 % code = 432) BASOPHILS RELATIVE PERCENT (BEAKER) (test code 0 % = 437) NEUTROPHILS ABSOLUTE COUNT (BEAKER) (test code 4.04 10e3/ L 1 .80-8.00 = 670) LYMPHOCYTES ABSOLUTE COUNT (BEAKER) (test code 0.97 10e3/ L 1 .48-4.50 = 414) MONOCYTES ABSOLUTE COUNT (BEAKER) (test code = 0.53 10e3/ L 0 .00-1.30 415) EOSINOPHILS ABSOLUTE COUNT (BEAKER) (test code 0.10 10e3/ L 0 .00-0.50 = 416) BASOPHILS ABSOLUTE COUNT (BEAKER) (test code = 0.02 10e3/ L 0 .00-0.20 417) CD4/CD8 Ratio [id number] 08:04:00 Test Item Value Reference Range Comments Absolute CD 4 [place] (test code = 783003) 188 /uL 359-15 19 % CD 4 Pos. Lymph. (test code = 469846) 37.6 % 30.8-58. 5 Abs. CD 8 Suppressor (test code = 400469) 183 /uL 109-89 7 % CD 8 Pos. Lymph. (test code = 782916) 36.6 % 12.0-35. 5 CD4/CD8 Ratio (test code = 038959) 1.03 0.92-3.72 WBC (test code = 639655) 5.0 x10E3/uL 3.4-10.8 RBC (test code = 330188) 3.00 x10E6/uL 4.14-5.80 Hemoglobin (test code = 379986) 9.6 g/dL 13.0-17.7 Hematocrit (test code = 747203) 27.6 % 37.5-51.0 MCV (test code = 135914) 92 fL 79-97 MCH (test code = 726318) 32.0 pg 26.6-33.0 MCHC (test code = 780099) 34.8 g/dL 31.5-35.7 RDW (test code = 536192) 15.5 % 12.3-15.4 Platelets (test code = 676833) 113 x10E3/uL 150-379 Neutrophils (test code = 054042) 84 % Not Estab. Lymphs (test code = 956008) 9 % Not Estab. Monocytes (test code = 241438) 6 % Not Estab. Eos (test code = 320690) 1 % Not Estab. Basos (test code = 828289) 0 % Not Estab. Neutrophils (Absolute) (test code = 684348) 4.2 x10E3/uL 1.4- 7.0 Lymphs (Absolute) (test code = 109069) 0.5 x10E3/uL 0.7-3.1 Monocytes(Absolute) (test code = 221702) 0.3 x10E3/uL 0.1-0.9 Eos (Absolute) (test code = 838021) 0.0 x10E3/uL 0.0-0.4 Baso (Absolute) (test code = 723011) 0.0 x10E3/uL 0.0-0.2 Immature Granulocytes (test code = 146368) 0 % Not E stab. Immature Grans (Abs) (test code = 972960) 0.0 x10E3/uL 0.0-0. 1 Culture, Blood [id number] 08:42:00Specimen: BloodCollected: 11/19/2017 00:21 Status: Final Last Updated: 11/24/2017 08:42 Culture Result (Final) (Final) No Growth After 5 DaysCulture, Blood [id number] 08:42:00 Specimen: BloodCollected: 11/18/2017 20:30 Status: Final Last Updated: 11/24/2017 08:42 Culture Result (Final) (Final) No Growth After 5 DaysPOC Glucose, [id number] 11:51:00 Test Item Value Reference Range Comments POC Glucose (test code = 148 mg/dL 70-115 Notify RN or MDIf you consider POCGLUC) your patient cri tically ill, the [facility] Accu-C hek InformII metershould not be used for Glucose determin ations.Draw a venous Glucose a nd send to the Main Lab for Gretta lysis. CK [id number] 07:42:00 Test Item Value Reference Range Comments CK (test code = CK) na U/L 39-308 CKMB (test code = CKMB) 4.0 ng/mL 0.0-4.9 CKMB% (test code = CKMBP) 0.0 % 0.0-3.4 [id number] 07:39:00 Test Item Value Reference Range Comments NT ProBnp (test code = PBNP) >09050 pg/mL 0-124 Troponin [id number] 07:18:00 Test Item Value Reference Range Comments Troponin T (test code = MADHAV) 0.103 ng/mL 0.000-0.090 Lactate [id number] 07:18:00 Test Item Value Reference Range Comments LDH (test code = LDH) 271 U/L 135-225 POC Glucose, [id number] 06:50:00 Test Item Value Reference Range Comments POC Glucose (test code = 154 mg/dL 70-115 Notify RN or MDIf you consider POCGLUC) your patient cri tically ill, the [facility] Accu-C hek InformII metershould not be used for Glucose determin ations.Draw a venous Glucose a nd send to the Main Lab for Gretta lysis. CK [id number] 01:08:00 Test Item Value Reference Range Comments CK (test code = CK) na U/L 39-308 CKMB (test code = CKMB) 3.6 ng/mL 0.0-4.9 CKMB% (test code = CKMBP) 0.0 % 0.0-3.4 Troponin [id number] 01:08:00 Test Item Value Reference Range Comments Troponin T (test code = MADHAV) 0.106 ng/mL 0.000-0.090 XR CHEST 1 [id number] 21:02:01CLINICAL INFORMATION: Vascular congestion.Dictation Location: 16Comparison: 11/18/2017 showed perihilar and lower lobe opacities. Technique: Portable AP 195 hoursFINDINGS: Monitoring electrodes overlie the chest wall. Cardiomegaly withincreasing central vascular interstitial prominence with bibasilaropacities and effusions. No interval bone changes.IMPRESSION: Changes could indicate worsening cardiac decompensation orfluid overload.POC Glucose, [id number] 20:15:00 Test Item Value Reference Range Comments POC Glucose (test code = 139 mg/dL 70-115 If you consider your patient POCGLUC) critically ill, the [facility] Accu-Chek Inform II metershould not be used for Glucose determinations.D raw a venous Glucose and send to the Main Lab for Analysis . POC Glucose, [id number] 16:52:00 Test Item Value Reference Range Comments POC Glucose (test code = 123 mg/dL 70-115 If you consider your patient POCGLUC) critically ill, the [facility] Accu-Chek Inform II metershould not be used for Glucose determinations.D raw a venous Glucose and send to the Main Lab for Analysis . POC Glucose, [id number] 12:04:00 Test Item Value Reference Range Comments POC Glucose (test code = 140 mg/dL 70-115 If you consider your patient POCGLUC) critically ill, the [facility] Accu-Chek Inform II metershould not be used for Glucose determinations.D raw a venous Glucose and send to the Main Lab for Analysis . POC Glucose, [id number] 08:01:00 Test Item Value Reference Range Comments POC Glucose (test code = 126 mg/dL 70-115 If you consider your patient POCGLUC) critically ill, the [facility] Accu-Chek Inform II metershould not be used for Glucose determinations.D raw a venous Glucose and send to the Main Lab for Analysis . CK [id number] 06:03:00 Test Item Value Reference Range Comments CK (test code = CK) na U/L 39-308 CKMB (test code = CKMB) 2.8 ng/mL 0.0-4.9 CKMB% (test code = CKMBP) 0.0 % 0.0-3.4 Basic Metabolic [id number] 05:51:00 Test Item Value Reference Range Comments Sodium (test code = NA) 140 mmol/L 135-145 Potassium (test code = K) 4.0 mmol/L 3.5-5.1 Chloride (test code = CL) 97 mmol/L 98-105 Carbon Dioxide (test code 32 mmol/L 22-29 = CO2) Glucose (test code = GLU) 115 mg/dL 70-115 Blood Urea Nitrogen (test 29 mg/dL 6-20 code = BUN) Creatinine (test code = 5.5 mg/dL 0.7-1.2 CREAT) Calcium (test code = CA) 9.1 mg/dL 8.3-10.5 BUN/Creatinine Ratio 5.3 (test code = BCRATIO) Anion Gap (test code = 11 mmol/L 7-16 AGAP) Estimated GFR (test code 14 mL/min/1.73m2 eGFR ( estimated Glomerular = GFR) Filtration Rate) is an estimated value, calculated from the patient 's serum creatinine using the MDRD equation.It is N OT the patient's actual GFR. The eGFR provides a more clinicallyuseful measure of kidney disease t pino serum creatinine alone .This calculation take s sex and race into accoun t, if the informationis pr ovided. If the race is not provided, and the patient isAfrican-Americ an, multiply by 1.21 2. If sex is not provided, and thepatient is fe male, multiply by 0.74 2. Results for patients <18 years ofage have not b een validated by the MDRD study and should be interpretedwith caution.eGFR Res ult Interpretation:e GFR > or = 60 is in the Nor mal RangeeGFR < 60 m ay mean kidney diseaseeG FR < 15 may mean kidney failureRanges recommended by jon turcios [employer] Kid[employer] Foundation,http: //nkdep.nih .gov Magnesium, [id number] 05:51:00 Test Item Value Reference Range Comments Magnesium (test code = MG) 1.9 mg/dL 1.7-2.5 [id number] 05:51:00 Test Item Value Reference Range Comments Phosphorus (test code = PO4) 3.8 mg/dL 2.70-4.50 [id number] 05:51:00 Test Item Value Reference Range Comments NT ProBnp (test code = PBNP) >25181 pg/mL 0-124 Troponin [id number] 05:51:00 Test Item Value Reference Range Comments Troponin T (test code = MADHAV) 0.126 ng/mL 0.000-0.090 CBC with [id number] 05:34:00 Test Item Value Reference Range Comments WBC (test code = WBC) 5.9 K/cumm 4.4-10.5 RBC (test code = RBC) 3.01 M/cumm 4.10-5.70 Hemoglobin (test code = HGB) 9.4 gm/dL 13.4-17.4 Hematocrit (test code = HCT) 28.8 % 38.7-52.0 MCV (test code = MCV) 95.7 fL 80-100 MCH (test code = MCH) 31.3 pg 27.0-32.5 MCHC (test code = MCHC) 32.7 g/dL 32.0-37.5 RDW (test code = RDW) 15.6 % 11.5-14.5 Platelet Count (test code = PLTCT) 111 K/cumm 140-440 MPV (test code = MPV) 7.1 fL Diff Method (test code = DIFFM) Auto Neutrophil (test code = NEUT) 82.1 % 36-70 Lymphocyte (test code = LYMPH) 6.2 % 12-44 Monocyte (test code = MONO) 9.3 % 0-11 Eosinophil (test code = EOS) 2.1 % 0-7 Basophil (test code = BASO) 0.3 % 0-2 Neutro Abs (test code = ANEUT) 4.8 K/cumm 1.6-7.4 Lymph Abs (test code = ALYMPH) 0.4 K/cumm 0.5-4.6 Obion Abs (test code = AMONO) 0.6 K/cumm 0.0-1.2 Eos Abs (test code = AEOS) 0.13 K/cumm 0.00-0.74 Baso Abs (test code = ABASO) 0.0 K/cumm 0.00-0.21 CK [id number] 18:39:00 Test Item Value Reference Range Comments CK (test code = CK) HIDE U/L 39-308 CKMB (test code = CKMB) 3.2 ng/mL 0.0-4.9 CKMB% (test code = CKMBP) HIDE % 0.0-3.4 Troponin [id number] 18:39:00 Test Item Value Reference Range Comments Troponin T (test code = MADHAV) 0.126 ng/mL 0.000-0.090 Hep B Surface [id number] 18:39:00 Test Item Value Reference Range Comments Hep Bs Ag (test code = HBSAG) Nonreactive Non-Reactive POC Glucose, [id number] 16:47:00 Test Item Value Reference Range Comments POC Glucose (test code = 143 mg/dL 70-115 If you consider your patient POCGLUC) critically ill, the [facility] Accu-Chek Inform II metershould not be used for Glucose determinations.D raw a venous Glucose and send to the Main Lab for Analysis . XR CHEST 1 [id number] 08:18:18EXAM: Portable AP chest x-rayLOCATION: R16 INDICATION: CoughCOMPARISON: 11/07/2017FINDINGS:The cardiacsilhouette is stable enlargement. There are increasinginterstitial opacities, most evident in the per ihilar regions and lowerlobes. There is blunting of the costophrenic angles bilaterally. Thereis no discernible pneumothorax.IMPRESSION:Increasing perihilar and bilateral lower lobe opacities compared to theprior exam dated 11/07/2017. Findings may represent pulmonary edema orpneumonia in the appropriate clinical setting.Comprehensive Metabolic [id number] 08:05:00 Test Item Value Reference Range Comments Sodium (test code = NA) 141 mmol/L 135-145 Potassium (test code = K) 3.9 mmol/L 3.5-5.1 Chloride (test code = CL) 94 mmol/L 98-105 Carbon Dioxide (test code 28 mmol/L 22-29 = CO2) Glucose (test code = GLU) 123 mg/dL 70-115 Blood Urea Nitrogen (test 50 mg/dL 6-20 code = BUN) Creatinine (test code = 7.4 mg/dL 0.7-1.2 CREAT) Calcium (test code = CA) 9.3 mg/dL 8.3-10.5 Prot Total (test code = 7.9 g/dL 6.4-8.3 TP) Albumin (test code = ALB) 4.3 g/dL 3.5-5.2 A/G Ratio (test code = 1.2 Ratio AGRATIO) Globulin (test code = 3.6 2.9-3.1 GLOB) Bili Total (test code = 0.7 mg/dL 0.1-0.9 TBIL) Alk Phos (test code = 93 U/L 40-129 APHOS) AST (test code = AST) 55 U/L 1-40 ALT (test code = ALT) 38 U/L 1-41 BUN/Creatinine Ratio 6.8 (test code = BCRATIO) Anion Gap (test code = 19 mmol/L 7-16 AGAP) Estimated GFR (test code 10 mL/min/1.73m2 eGFR ( estimated Glomerular = GFR) Filtration Rate) is an estimated value, calculated from the patient 's serum creatinine using the MDRD equation.It is N OT the patient's actual GFR. The eGFR provides a more clinicallyuseful measure of kidney disease t pino serum creatinine alone .This calculation take s sex and race into accoun t, if the informationis pr ovided. If the race is not provided, and the patient isAfrican-Americ an, multiply by 1.21 2. If sex is not provided, and thepatient is fe male, multiply by 0.74 2. Results for patients <18 years ofage have not b een validated by the MDRD study and should be interpretedwith caution.eGFR Res ult Interpretation:e GFR > or = 60 is in the Nor mal RangeeGFR < 60 m ay mean kidney diseaseeG FR < 15 may mean kidney failureRanges recommended by jon turcios National Kidney Foundation,http: //nkdep.nih .gov CK [id number] 08:05:00 Test Item Value Reference Range Comments CK (test code = CK) 149 U/L 39-308 Troponin [id number] 08:02:00 Test Item Value Reference Range Comments Troponin T (test code = MADHAV) 0.114 ng/mL 0.000-0.090 [id number] 08:02:00 Test Item Value Reference Range Comments NT ProBnp (test code = PBNP) >09575 pg/mL 0-124 CBC with [id number] 07:53:00 Test Item Value Reference Range Comments WBC (test code = WBC) 5.1 K/cumm 4.4-10.5 RBC (test code = RBC) 3.22 M/cumm 4.10-5.70 Hemoglobin (test code = HGB) 10.0 gm/dL 13.4-17.4 Hematocrit (test code = HCT) 30.4 % 38.7-52.0 MCV (test code = MCV) 94.4 fL 80-100 MCH (test code = MCH) 30.9 pg 27.0-32.5 MCHC (test code = MCHC) 32.8 g/dL 32.0-37.5 RDW (test code = RDW) 16.1 % 11.5-14.5 Platelet Count (test code = PLTCT) 118 K/cumm 140-440 MPV (test code = MPV) 9.6 fL Diff Method (test code = DIFFM) Auto Neutrophil (test code = NEUT) 73.2 % 36-70 Lymphocyte (test code = LYMPH) 16.7 % 12-44 Monocyte (test code = MONO) 7.2 % 0-11 Eosinophil (test code = EOS) 2.2 % 0-7 Basophil (test code = BASO) 0.6 % 0-2 Neutro Abs (test code = ANEUT) 3.7 K/cumm 1.6-7.4 Lymph Abs (test code = ALYMPH) 0.9 K/cumm 0.5-4.6 Obion Abs (test code = AMONO) 0.4 K/cumm 0.0-1.2 Eos Abs (test code = AEOS) 0.11 K/cumm 0.00-0.74 Baso Abs (test code = ABASO) 0.0 K/cumm 0.00-0.21 XR CHEST 1 [id number] 21:38:09EXAM: CHEST ONE VIEWINDICATION: CoughCOMPARISON: October 06, 2017TECHNIQUE: AP view of the chest.FINDINGS: The cardiomediastinal silhouette is unchanged. Mild congestive changesbilaterally. No pneumothorax or pleural effusion is identified. Theosseous structures are unremarkable.IMPRESSION: Diffuse congestive changes bilaterally.LOCATION: R16US DUPLX EXT VEINS COMPRS, [id number] 20:09:34AFTER HOURS SERVICE ON: 10/06/2017 8:09 PMRIGHT Lower Extremity Venous Duplex Doppler ExaminationLocation Code [id number]: SwellingTechnique: Real-time castillo scale, Doppler spectral analysis [...] Lower Extremity Venous Duplex Doppler ExaminationLocation Code [id number] ry: SwellingTechnique: Real-time castillo scale, Doppler spectral analysis [...] of DVT in the imaged vessels.Comprehensive Metabolic [id number] 17:40:00 Test Item Value Reference Range Comments Sodium (test code = NA) 137 mmol/L 135-145 Potassium (test code = K) 3.7 mmol/L 3.5-5.1 Chloride (test code = CL) 92 mmol/L 98-105 Carbon Dioxide (test code 33 mmol/L 22-29 = CO2) Glucose (test code = GLU) 98 mg/dL 70-115 Blood Urea Nitrogen (test 34 mg/dL 6-20 code = BUN) Creatinine (test code = 6.3 mg/dL 0.7-1.2 CREAT) Calcium (test code = CA) 9.6 mg/dL 8.3-10.5 Prot Total (test code = 7.0 g/dL 6.4-8.3 TP) Albumin (test code = ALB) 4.1 g/dL 3.5-5.2 A/G Ratio (test code = 1.4 Ratio AGRATIO) Globulin (test code = 2.9 2.9-3.1 GLOB) Bili Total (test code = 0.6 mg/dL 0.1-0.9 TBIL) Alk Phos (test code = 77 U/L 40-129 APHOS) AST (test code = AST) 47 U/L 1-40 HEMOLYZED ALT (test code = ALT) 35 U/L 1-41 BUN/Creatinine Ratio 5.4 (test code = BCRATIO) Anion Gap (test code = 12 mmol/L 7-16 AGAP) Estimated GFR (test code 12 mL/min/1.73m2 eGFR ( estimated Glomerular = GFR) Filtration Rate) is an estimated value, calculated from the patient 's serum creatinine using the MDRD equation.It is N OT the patient's actual GFR. The eGFR provides a more clinicallyuseful measure of kidney disease t pino serum creatinine alone .This calculation take s sex and race into accoun t, if the informationis pr ovided. If the race is not provided, and the patient isAfrican-Americ an, multiply by 1.21 2. If sex is not provided, and thepatient is fe male, multiply by 0.74 2. Results for patients <18 years ofage have not b een validated by the MDRD study and should be interpretedwith caution.eGFR Res ult Interpretation:e GFR > or = 60 is in the Nor mal RangeeGFR < 60 m ay mean kidney diseaseeG FR < 15 may mean kidney failureRanges recommended by jon turcios [employer],http: //nkdep.nih .gov CBC with [id number] 17:15:00 Test Item Value Reference Range Comments WBC (test code = WBC) 5.8 K/cumm 4.4-10.5 RBC (test code = RBC) 2.93 M/cumm 4.10-5.70 Hemoglobin (test code = HGB) 9.7 gm/dL 13.4-17.4 Hematocrit (test code = HCT) 28.1 % 38.7-52.0 MCV (test code = MCV) 95.8 fL 80-100 MCH (test code = MCH) 32.9 pg 27.0-32.5 MCHC (test code = MCHC) 34.4 g/dL 32.0-37.5 RDW (test code = RDW) 15.1 % 11.5-14.5 Platelet Count (test code = PLTCT) 136 K/cumm 140-440 MPV (test code = MPV) 6.8 fL Diff Method (test code = DIFFM) Auto Neutrophil (test code = NEUT) 65.8 % 36-70 Lymphocyte (test code = LYMPH) 22.0 % 12-44 Monocyte (test code = MONO) 9.6 % 0-11 Eosinophil (test code = EOS) 2.0 % 0-7 Basophil (test code = BASO) 0.5 % 0-2 Neutro Abs (test code = ANEUT) 3.8 K/cumm 1.6-7.4 Lymph Abs (test code = ALYMPH) 1.3 K/cumm 0.5-4.6 Obion Abs (test code = AMONO) 0.6 K/cumm 0.0-1.2 Eos Abs (test code = AEOS) 0.12 K/cumm 0.00-0.74 Baso Abs (test code = ABASO) 0.0 K/cumm 0.00-0.21 XR CHEST 1 [id number] 16:56:42CHEST 1 VIEW: [id number]: coughCOMPARISON:Sep 24, 2017FINDINGS:The heart is enlarged. There is engorgement of the central pulmonaryvasculature. There are patchy bibasilar areas of infiltrate oratelectasis with bilateral effusions. No pneumothorax is present. IMPRESSION: 1. Patchy areas of atelectasis or infiltrate in the lung bases withsmall bilateral effusions and vascular congestion most likely secondaryto CHF.Culture, Blood [id number] 14:58:00Specimen: BloodCollected: 09/24/2017 13:05 Status: Final Last Updated: 09/29/2017 14:58 (1) ER Bed 1 Culture Result (Final) (Final) No Growth After 5 DaysCulture, Blood [id number] 14:58:00Specimen: BloodCollected: 09/24/2017 12:50 Status: Final Last Updated: 09/29/2017 14:58 (1) ER Bed 1 Culture Result (Final) (Final) No Growth After 5 DaysPOC Glucose, [id number] 10:54:00 Test Item Value Reference Range Comments POC Glucose (test code = 168 mg/dL 70-115 If you consider your patient POCGLUC) critically ill, the [facility] Accu-Chek Inform II metershould not be used for Glucose determinations.D raw a venous Glucose and send to the Main Lab for Analysis . POC Glucose, [id number] 07:16:00 Test Item Value Reference Range Comments POC Glucose (test code = 143 mg/dL 70-115 If you consider your patient POCGLUC) critically ill, the [facility] Accu-Chek Inform II metershould not be used for Glucose determinations.D raw a venous Glucose and send to the Main Lab for Analysis . CBC with [id number] 07:15:00 Test Item Value Reference Range Comments WBC (test code = WBC) 7.5 K/cumm 4.4-10.5 RBC (test code = RBC) 2.77 M/cumm 4.10-5.70 Hemoglobin (test code = HGB) 8.7 gm/dL 13.4-17.4 Hematocrit (test code = HCT) 24.7 % 38.7-52.0 MCV (test code = MCV) 88.9 fL 80-100 MCH (test code = MCH) 31.3 pg 27.0-32.5 MCHC (test code = MCHC) 35.2 g/dL 32.0-37.5 RDW (test code = RDW) 15.9 % 11.5-14.5 Platelet Count (test code = PLTCT) 157 K/cumm 140-440 MPV (test code = MPV) 9.0 fL Diff Method (test code = DIFFM) Auto Neutrophil (test code = NEUT) 72.8 % 36-70 Lymphocyte (test code = LYMPH) 17.3 % 12-44 Monocyte (test code = MONO) 8.7 % 0-11 Eosinophil (test code = EOS) 0.9 % 0-7 Basophil (test code = BASO) 0.4 % 0-2 Neutro Abs (test code = ANEUT) 5.5 K/cumm 1.6-7.4 Lymph Abs (test code = ALYMPH) 1.3 K/cumm 0.5-4.6 Obion Abs (test code = AMONO) 0.7 K/cumm 0.0-1.2 Eos Abs (test code = AEOS) 0.07 K/cumm 0.00-0.74 Baso Abs (test code = ABASO) 0.0 K/cumm 0.00-0.21 Magnesium, [id number] 07:03:00 Test Item Value Reference Range Comments Magnesium (test code = MG) 2.0 mg/dL 1.7-2.5 Basic Metabolic [id number] 07:03:00 Test Item Value Reference Range Comments Sodium (test code = NA) 137 mmol/L 135-145 Potassium (test code = K) 3.7 mmol/L 3.5-5.1 Chloride (test code = CL) 95 mmol/L 98-105 Carbon Dioxide (test code 30 mmol/L 22-29 = CO2) Glucose (test code = GLU) 155 mg/dL 70-115 Blood Urea Nitrogen (test 20 mg/dL 6-20 code = BUN) Creatinine (test code = 5.7 mg/dL 0.7-1.2 CREAT) Calcium (test code = CA) 9.0 mg/dL 8.3-10.5 BUN/Creatinine Ratio 3.5 (test code = BCRATIO) Anion Gap (test code = 12 mmol/L 7-16 AGAP) Estimated GFR (test code 13 mL/min/1.73m2 eGFR ( estimated Glomerular = GFR) Filtration Rate) is an estimated value, calculated from the patient 's serum creatinine using the MDRD equation.It is N OT the patient's actual GFR. The eGFR provides a more clinicallyuseful measure of kidney disease t pino serum creatinine alone .This calculation take s sex and race into accoun t, if the informationis pr ovided. If the race is not provided, and the patient isAfrican-Americ an, multiply by 1.21 2. If sex is not provided, and thepatient is fe male, multiply by 0.74 2. Results for patients <18 years ofage have not b een validated by the MDRD study and should be interpretedwith caution.eGFR Res ult Interpretation:e GFR > or = 60 is in the Nor mal RangeeGFR < 60 m ay mean kidney diseaseeG FR < 15 may mean kidney failureRanges recommended by jon turcios [employer] Foundation,http: //nkdep.nih .gov POC Glucose, [id number] 21:40:00 Test Item Value Reference Range Comments POC Glucose (test code = 129 mg/dL 70-115 If you consider your patient POCGLUC) critically ill, the [facility] Accu-Chek Inform II metershould not be used for Glucose determinations.D raw a venous Glucose and send to the Main Lab for Analysis . Hep B Surface [id number] 18:36:00 Test Item Value Reference Range Comments Hep Bs Ag (test code = HBSAG) Nonreactive Non-Reactive POC Glucose, [id number] 10:51:00 Test Item Value Reference Range Comments POC Glucose (test code = 216 mg/dL 70-115 If you consider your patient POCGLUC) critically ill, the [facility] Accu-Chek Inform II metershould not be used for Glucose determinations.D raw a venous Glucose and send to the Main Lab for Analysis . POC Glucose, [id number] 07:57:00 Test Item Value Reference Range Comments POC Glucose (test code = 164 mg/dL 70-115 If you consider your patient POCGLUC) critically ill, the [facility] Accu-Chek Inform II metershould not be used for Glucose determinations.D raw a venous Glucose and send to the Main Lab for Analysis . POC Glucose, [id number] 19:47:00 Test Item Value Reference Range Comments POC Glucose (test code = 140 mg/dL 70-115 Notify RN or MDIf you consider POCGLUC) your patient cri tically ill, the [facility] Accu-C hek InformII metershould not be used for Glucose determin ations.Draw a venous Glucose a nd send to the Main Lab for Gretta lysis. Troponin [id number] 19:36:00 Test Item Value Reference Range Comments Troponin T (test code = MADHAV) 0.121 ng/mL 0.000-0.090 CK [id number] 19:25:00 Test Item Value Reference Range Comments CK (test code = CK) 160 U/L 39-308 The value HI DE originally released by RUFINO CHRIS on 09/25/2017 19:12 waschanged to 160 by GINO on 09/25/2017 19:24 CKMB (test code = CKMB) 3.0 ng/mL 0.0-4.9 CKMB% (test code = CKMBP) 1.9 % 0.0-3.4 The va lue HIDE originally released by RUFINO CHRIS on 09/25/2017 19:12 waschanged to 1.9 by GINO on 09/25/2017 19:24 POC Glucose, [id number] 16:42:00 Test Item Value Reference Range Comments POC Glucose (test code = 123 mg/dL 70-115 If you consider your patient POCGLUC) critically ill, the [facility] Accu-Chek Inform II metershould not be used for Glucose determinations.D raw a venous Glucose and send to the Main Lab for Analysis . POC Glucose, [id number] 12:09:00 Test Item Value Reference Range Comments POC Glucose (test code = 141 mg/dL 70-115 If you consider your patient POCGLUC) critically ill, the [facility] Accu-Chek Inform II metershould not be used for Glucose determinations.D raw a venous Glucose and send to the Main Lab for Analysis . Hep B Surface [id number] 07:59:00 Test Item Value Reference Range Comments Hep Bs Ag (test code = HBSAG) Nonreactive Non-Reactive CK [id number] 07:43:00 Test Item Value Reference Range Comments CK (test code = CK) n/a U/L 39-308 CKMB (test code = CKMB) 2.4 ng/mL 0.0-4.9 CKMB% (test code = CKMBP) 0.0 % 0.0-3.4 Troponin [id number] 07:38:00 Test Item Value Reference Range Comments Troponin T (test code = MADHAV) 0.134 ng/mL 0.000-0.090 Thyroid Stimulating Hormone (TSH)2017-09-25 07:38:00 Test Item Value Reference Range Comments TSH (test code = TSH) 1.10 mIU/mL 0.270-4.200 [id number] 07:38:00 Test Item Value Reference Range Comments Phosphorus (test code = PO4) 3.4 mg/dL 2.70-4.50 Comprehensive Metabolic [id number] 07:38:00 Test Item Value Reference Range Comments Sodium (test code = NA) 136 mmol/L 135-145 Potassium (test code = K) 3.2 mmol/L 3.5-5.1 Chloride (test code = CL) 91 mmol/L 98-105 Carbon Dioxide (test code 32 mmol/L 22-29 = CO2) Glucose (test code = GLU) 103 mg/dL 70-115 Blood Urea Nitrogen (test 20 mg/dL 6-20 code = BUN) Creatinine (test code = 6.3 mg/dL 0.7-1.2 CREAT) Calcium (test code = CA) 8.9 mg/dL 8.3-10.5 Prot Total (test code = 6.8 g/dL 6.4-8.3 TP) Albumin (test code = ALB) 3.9 g/dL 3.5-5.2 A/G Ratio (test code = 1.3 Ratio AGRATIO) Globulin (test code = 2.9 2.9-3.1 GLOB) Bili Total (test code = 0.9 mg/dL 0.1-0.9 TBIL) Alk Phos (test code = 59 U/L 40-129 APHOS) AST (test code = AST) 48 U/L 1-40 ALT (test code = ALT) 41 U/L 1-41 BUN/Creatinine Ratio 3.2 (test code = BCRATIO) Anion Gap (test code = 13 mmol/L 7-16 AGAP) Estimated GFR (test code 12 mL/min/1.73m2 eGFR ( estimated Glomerular = GFR) Filtration Rate) is an estimated value, calculated from the patient 's serum creatinine using the MDRD equation.It is N OT the patient's actual GFR. The eGFR provides a more clinicallyuseful measure of kidney disease t pino serum creatinine alone .This calculation take s sex and race into accoun t, if the informationis pr ovided. If the race is not provided, and the patient isAfrican-Americ an, multiply by 1.21 2. If sex is not provided, and thepatient is fe male, multiply by 0.74 2. Results for patients <18 years ofage have not b een validated by the MDRD study and should be interpretedwith caution.eGFR Res ult Interpretation:e GFR > or = 60 is in the Nor mal RangeeGFR < 60 m ay mean kidney diseaseeG FR < 15 may mean kidney failureRanges recommended by jon turcios National Kidney Foundation,http: //nkdep.nih .gov Magnesium, [id number] 07:38:00 Test Item Value Reference Range Comments Magnesium (test code = MG) 2.0 mg/dL 1.7-2.5 CK [id number] 07:31:00 Test Item Value Reference Range Comments CK (test code = CK) 159 U/L 39-308 Lipid [id number] 07:31:00 Test Item Value Reference Range Comments Cholesterol (test code = 118 mg/dL 0-200 CHOL) Triglycerides (test code = 170 mg/dL 9-200 TRIG) HDL (test code = HDL) 49 mg/dL 40-60 Chol/HDL (test code = 2.4 Ratio 0.0-5.0 CHOLPHDL) LDL, Calculated (test code 35 0-130 (NOTE )RISK OF HEART = LDLC) DISEASEPublished by [facility] Heart Associatio nAnalyte Optimal Boderline Increased RiskCHOL <200 20 0-239 >240TRIG <150 150-199 >200HDL Male: >60 <40HDL Female: &g t;60 <50LDL <100 130-159 >1 60LDL NEAR O PTIMAL IS 100-129 VLDL (test code = VLDL) 34 mg/dL 5-40 LDL/HDL (test code = 1 LDLPHDL) Glycosylated [id number] 07:24:00 Test Item Value Reference Range Comments HBA1c (test code = HBA1C) 5.0 % 4.8-5.9 CBC with [id number] 07:20:00 Test Item Value Reference Range Comments WBC (test code = WBC) 6.5 K/cumm 4.4-10.5 RBC (test code = RBC) 2.80 M/cumm 4.10-5.70 Hemoglobin (test code = HGB) 8.8 gm/dL 13.4-17.4 Hematocrit (test code = HCT) 24.2 % 38.7-52.0 MCV (test code = MCV) 86.5 fL 80-100 MCH (test code = MCH) 31.5 pg 27.0-32.5 MCHC (test code = MCHC) 36.4 g/dL 32.0-37.5 RDW (test code = RDW) 15.6 % 11.5-14.5 Platelet Count (test code = PLTCT) 145 K/cumm 140-440 MPV (test code = MPV) 8.7 fL Diff Method (test code = DIFFM) Auto Neutrophil (test code = NEUT) 78.8 % 36-70 Lymphocyte (test code = LYMPH) 11.6 % 12-44 Monocyte (test code = MONO) 7.6 % 0-11 Eosinophil (test code = EOS) 1.6 % 0-7 Basophil (test code = BASO) 0.4 % 0-2 Neutro Abs (test code = ANEUT) 5.1 K/cumm 1.6-7.4 Lymph Abs (test code = ALYMPH) 0.8 K/cumm 0.5-4.6 Obion Abs (test code = AMONO) 0.5 K/cumm 0.0-1.2 Eos Abs (test code = AEOS) 0.10 K/cumm 0.00-0.74 Baso Abs (test code = ABASO) 0.0 K/cumm 0.00-0.21 POC Glucose, [id number] 07:03:00 Test Item Value Reference Range Comments POC Glucose (test code = 147 mg/dL 70-115 If you consider your patient POCGLUC) critically ill, the [facility] Accu-Chek Inform II metershould not be used for Glucose determinations.D raw a venous Glucose and send to the Main Lab for Analysis . POC Glucose, [id number] 22:05:00 Test Item Value Reference Range Comments POC Glucose (test code = 134 mg/dL 70-115 If you consider your patient POCGLUC) critically ill, the [facility] Accu-Chek Inform II metershould not be used for Glucose determinations.D raw a venous Glucose and send to the Main Lab for Analysis . Blood Gas+Lytes+Glu+Ca+Hgb+Hct+[id number] 18:31:00 Test Item Value Reference Range Comments pH, Blood Gas (test code = BGPH) 7.513 pH Units 7.35-7.45 pCO2 (test code = PCO2) 45.3 mm Hg 35-45 pO2 (test code = PO2) 59.8 mm Hg 80-100 Bicarbonate (test code = HCO3) 36.4 mmol/L 22.0-26.0 Base Excess (test code = BE) 12.1 mmol/L O2 Saturation (test code = O2SAT) 93.5 % 80.0-100.0 Sodium, Blood Gas (test code = 138 mmol/L 135-145 BGNA) Potassium, Blood Gas (test code = 3.2 mmol/L 3.5-4.5 BGK) Chloride, Blood Gas (test code = 92 mmol/L 98-105 BGCL) Calcium, Ionized, Blood Gas (test 1.11 mmol/L 1.00-1.50 code = BGCAI) Glucose, Blood Gas (test code = 91 mg/dL 75-115 BGGLU) tHB (test code = RTHB) 9.2 gm/dL 12.2-17.4 Hematocrit, Blood Gas (test code = 28.2 % 34.0-52.0 BGHCT) O2Hb (test code = RO2HB) 91 80-100 Carboxyhemoglobin (test code = 1.8 % 0.0-20.0 CARHGB) Methemoglobin (test code = METHGB) 1.2 % 0.0-20.0 FLOW (LPM) (test code = FLOW) 2 L/min Patient Temperature (test code = 37.0 Degrees Celcius PTTEMP) Comment (test code = COMMENT) [email or web address] Puncture Site (test code = Radial. R PUNSITE) Drawing Tech ID (test code = gianfranco jin DRAWTECH) iPAP (test code = IPAP) 0 cmH2O Respiratory Rate (test code = RESP 0 RATE) Lactic Acid, Blood Gas (test code 0.4 mmol/L = BGLA) CT CHEST W/O [id number] 16:48:03CT CHEST W/O CONTRASTLOCATION CODE: R16 HISTORY: [...] is mild interstitial prominence in the upper lungs.Otherwise, no pneumothorax or suspicious pulmonary nodule is [...] bilateral axillary, prevascular, andparatracheal lymph nodes.Influenza B [id number] 14:36:00Specimen: NasalCollected: 09/24/2017 14:04 Status: Final Last Updated: 09/24/2017 14:36 (1) ER Bed 1 Influenza B Ag (Final) (Final) Negative for Flu B protein antigen FLU COMMENT 1(Final) (Final) A negative test result does not exclude infection with influenza Aor B. Flu A or B antigen in the sample may be below the detection limitof the test. Culture of negative samples is recommended.Influenza A Antigen 2017-09-24 14:34:00Specimen: NasalCollected: 09/24/2017 14:04 Status: Final Last [...] Culture of negative samples is recommended.Comprehensive Metabolic Panel 2017-09-24 13:54:00 Test Item Value Reference Range Comments Sodium (test code = NA) 132 mmol/L 135-145 Potassium (test code = K) 3.7 mmol/L 3.5-5.1 Hemoly zed Chloride (test code = CL) 89 mmol/L 98-105 Carbon Dioxide (test code 32 mmol/L 22-29 = CO2) Glucose (test code = GLU) 136 mg/dL 70-115 Blood Urea Nitrogen (test 12 mg/dL 6-20 code = BUN) Creatinine (test code = 4.8 mg/dL 0.7-1.2 CREAT) Calcium (test code = CA) 9.0 mg/dL 8.3-10.5 Prot Total (test code = 7.4 g/dL 6.4-8.3 TP) Albumin (test code = ALB) 4.2 g/dL 3.5-5.2 A/G Ratio (test code = 1.3 Ratio AGRATIO) Globulin (test code = 3.2 2.9-3.1 GLOB) Bili Total (test code = 0.8 mg/dL 0.1-0.9 TBIL) Alk Phos (test code = 56 U/L 40-129 APHOS) AST (test code = AST) 72 U/L 1-40 Hemolyzed ALT (test code = ALT) 49 U/L 1-41 BUN/Creatinine Ratio 2.5 (test code = BCRATIO) Anion Gap (test code = 11 mmol/L 7-16 AGAP) Estimated GFR (test code 16 mL/min/1.73m2 eGFR ( estimated Glomerular = GFR) Filtration Rate) is an estimated value, calculated from the patient 's serum creatinine using the MDRD equation.It is N OT the patient's actual GFR. The eGFR provides a more clinicallyuseful measure of kidney disease t pino serum creatinine alone .This calculation take s sex and race into accoun t, if the informationis pr ovided. If the race is not provided, and the patient isAfrican-Americ an, multiply by 1.21 2. If sex is not provided, and thepatient is fe male, multiply by 0.74 2. Results for patients <18 years ofage have not b een validated by the MDRD study and should be interpretedwith caution.eGFR Res ult Interpretation:e GFR > or = 60 is in the Nor mal RangeeGFR < 60 m ay mean kidney diseaseeG FR < 15 may mean kidney failureRanges recommended by jon turcios National Kidney Foundation,http: //nkdep.nih .gov Troponin [id number] 13:54:00 Test Item Value Reference Range Comments Troponin T (test code = MADHAV) 0.124 ng/mL 0.000-0.090 Sst-[id number] 13:54:00 Test Item Value Reference Range Comments NT ProBnp (test code = PBNP) >28997 pg/mL 0-124 CK [id number] 13:54:00 Test Item Value Reference Range Comments CK (test code = CK) 222 U/L 39-308 CKMB (test code = CKMB) 3.1 ng/mL 0.0-4.9 CKMB% (test code = CKMBP) 1.4 % 0.0-3.4 CK [id number] 13:54:00 Test Item Value Reference Range Comments CK (test code = CK) 222 U/L 39-308 Partial Thromboplastin [id number] 13:43:00 Test Item Value Reference Range Comments aPTT (test code = PTT) 35.70 seconds 24.39-37.25 Prothrombin [id number] 13:43:00 Test Item Value Reference Range Comments PT (test code = PT) 11.30 seconds 9.78-13.35 INR (test code = INR) 0.99 Ratio 0.6-1.2 Lactic Acid [id number] 13:41:00 Test Item Value Reference Range Comments Lactic Acid, Bld (test code = LAC) 1.3 mmol/L 0.5-1.9 CBC with [id number] 13:32:00 Test Item Value Reference Range Comments WBC (test code = WBC) 5.3 K/cumm 4.4-10.5 RBC (test code = RBC) 2.81 M/cumm 4.10-5.70 Hemoglobin (test code = HGB) 9.1 gm/dL 13.4-17.4 Hematocrit (test code = HCT) 26.3 % 38.7-52.0 MCV (test code = MCV) 93.7 fL 80-100 MCH (test code = MCH) 32.4 pg 27.0-32.5 MCHC (test code = MCHC) 34.5 g/dL 32.0-37.5 RDW (test code = RDW) 15.1 % 11.5-14.5 Platelet Count (test code = PLTCT) 166 K/cumm 140-440 MPV (test code = MPV) 6.1 fL Diff Method (test code = DIFFM) Auto Neutrophil (test code = NEUT) 60.1 % 36-70 Lymphocyte (test code = LYMPH) 23.2 % 12-44 Monocyte (test code = MONO) 11.8 % 0-11 Eosinophil (test code = EOS) 4.4 % 0-7 Basophil (test code = BASO) 0.6 % 0-2 Neutro Abs (test code = ANEUT) 3.2 K/cumm 1.6-7.4 Lymph Abs (test code = ALYMPH) 1.2 K/cumm 0.5-4.6 Obion Abs (test code = AMONO) 0.6 K/cumm 0.0-1.2 Eos Abs (test code = AEOS) 0.23 K/cumm 0.00-0.74 Baso Abs (test code = ABASO) 0.0 K/cumm 0.00-0.21 XR CHEST 1 [id number] 12:50:14XR CHEST 1 VIEWLOCATION: [id number]: None.INDICATION: CoughDISCUSSION:A single portable chest radiograph was [...]
--- OUTSIDE RECORDS SUMMARY | 2020-01-01 21:40 | XMS REPORT ---
:1955 Author Organization [facility] Address Unavailable , Allergies, Adverse Reactions, Alerts Allergy Name Reaction Description Start Date Severity Status Pr ovider No Known Allergies Julieta Yb arra Conditions or Problems Problem Name Problem Onset Status Entry Provider Comment Standard A nnotate Code Date Date Description Diabetes 250.00 Active [place] Diabetes melli tus mellitus, type 12/02 12/02 Benjamin ÉPREZ without mention II of complication, type II or unspecified type , not stated as uncontrolled Encounter for Active [place] screening for 12/02 12/02 Benjamin PÉREZ eye and ear disorders HIV infection 042 Active [place] Human 12/02 12/02 Benjamin PÉREZ immunodeficien cy virus [HIV] disease Hyperopia - OU 367.0 Active Mo Hypermetr opia 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 OD Hypertension 401.9 Active [place] Unspecifie d 12/02 12/02 Benjamin PÉREZ essential hypertension Hypertensive 362.11 Active [place] Hypertensi ve retinopathy, 12/02 12/02 Benjamin PÉREZ retinopat hy bilateral Presbyopia - 367.4 Active Mo Presbyopia OU 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 OD 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, 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 OD astigmatis m bilateral Medication List Medication Instructions Start Stop Generic NDC Status Provider Patient Date Date Name Instruct ion AMLODIPINE AMLODIPINE 06261788958 Active Mo Active BESYLATE 10 MG BESYLATE Dicks OD ORAL TABLET CALCIUM ACETATE CALCIUM ACETATE 83575323976 Acti ve Mo Active (PHOS BINDER) (PHOS BINDER) Dicks OD 667 MG ORAL CAPSULE CRESTOR 5 MG ROSUVASTATIN 50661371677 Active Francesca n Active ORAL TABLET CALCIUM Dicks OD EPIVIR SOLUTION LAMIVUDINE SOLN 50216624817 Acti ve Mo Active Dicks OD ISENTRESS RALTEGRAVIR 33311565168 Active Mo Active TABLET POTASSIUM TABS Dicks OD KALETRA TABLET LOPINAVIR-RITONAVI 46885552062 Ac tive Mo Active R TABS Dicks OD LAMIVUDINE LAMIVUDINE TABS 41471826120 Active De an Active TABLET Dicks OD PROAIR HFA ALBUTEROL SULFATE 05793618731 Active Mo Active AEROSOL AERS Dicks OD SOLUTION PEDRO-EAMON RX B-COMPLEX W/ C & 71560855343 Active Mo Active TABLET FOLIC ACID TABS Dicks OD VITAMIN D2 ERGOCALCIFEROL 31923361857 Active Francesca n Active TABLET TABS Dicks OD Diagnostic Results Date Name Value Unit Range Description Append: Eye Exam - Hematology T-helper cells (CD4) count 602 uL Append: Eye Exam - Serology HIV-1RNA, serum, by PCR, quantitative 20 {Copies}/ mL Procedures Code Procedure Name Date Entry Date Standard Desc ription CPT-30616 Dispensing Visit (UNLIVSTED OPHTHALMOLOGICAL 10:14:39 CDT SERVICE/PROCEDURE) CPT-30427 Est Patient Comprehensive Opt - 37978 15:29:32 CDT CPT-29577 New Patient Intermediate Opt - 29198 14:28:41 CDT
[2020-01-01] MEDS ORDERED: LIDOCAINE 1% MPF 5 ML VIAL ONE (22:54)
--- NOTE | 2020-01-01 23:01 | EDPHYS ---
Physician Documentation [facility] Name: Salvatore Goldman Age: 64 yrs Sex: Male : 1955 Arrival Date: 01/01/2020 Time: 21:10 Bed 5 Private MD: ED Physician David Cardenas HPI: 12/31 22:29 This 64 yrs old Black Male presents to ER via Ambulatory with complaints of Boil. pkl 22:29 The patient presents with an abscess of the right buttock. Description: The affected pkl area is small, fluctuant. Onset: The symptoms/episode began/occurred 2 day(s) ago. The patient has experienced similar episodes in the past, several times. Patient also has another small abscess on his left buttock. Not ready for I and D.. Historical: - Allergies: 21:20 codeine sulfate (DIZZINESS); ca1 - Home Meds: 21:20 atropine 1 % Opht drop 1 drop once daily [Active]; carvedilol 12.5 mg Oral tab 1 tab 2 ca1 times per day [Active]; Isentress 400 mg Oral tab 1 tab 2 times per day [Active]; Kaletra 200-50 mg Oral tab 2 tabs 2 times per day [Active]; lamivudine 10 mg/mL Oral soln 2.5 mL once daily [Active]; metformin 500 mg Oral tab 1 tab daily [Active]; pantoprazole 40 mg Oral TbEC 1 tab once daily [Active]; prednisolone acetate 1 % Opht drps 1 drop 4 times per day [Active]; Daija-Kodak 0.8 mg Oral tab daily [Active]; tramadol 50 mg Oral tab 1 tab Q8HRS PRN [Active]; Vitamin D Oral 95164 unit WEEKLY [Active]; warfarin 10 mg Oral tab 1.5 tabs on M,W, F and 1 tab on T,Thurs, Sat, Sun [Active]; - PMHx: 21:20 Cirrhosis; Diabetes - NIDDM; Dialysis; heart valve; Hepatitis; HIV; Hyperlipidemia; ca1 Karposi Sarcoma (left leg); kidney failure; L arm HD access; - PSHx: 21:20 left forearm dialysis fistula; partial lobectomy right; CABG; heart valve replacement; ca1 - Immunization history:: Adult Immunizations up to date, Pneumococcal vaccine is up to date, Flu vaccine is up to date. - Social history:: Smoking status: Patient denies any tobacco usage or history of. ROS: 22:29 Eyes: Negative for injury, pain, redness, and discharge, ENT: Negative for injury, pkl pain, and discharge, Neck: Negative for injury, pain, and swelling, Cardiovascular: Negative for chest pain, palpitations, and edema, Respiratory: Negative for shortness of breath, cough, wheezing, and pleuritic chest pain, Abdomen/GI: Negative for abdominal pain, nausea, vomiting, diarrhea, and constipation, Back: Negative for injury and pain, MS/Extremity: Negative for injury and deformity, Neuro: Negative for headache, weakness, numbness, tingling, and seizure. 22:29 Skin: Positive for abscess, of the right buttock. Exam: 22:29 Head/Face: Normocephalic, atraumatic. Eyes: Pupils equal round and reactive to light, pkl extra-ocular motions intact. Lids and lashes normal. Conjunctiva and sclera are non-icteric and not injected. Cornea within normal limits. Periorbital areas with no swelling, redness, or edema. ENT: Nares patent. No nasal discharge, no septal abnormalities noted. Tympanic membranes are normal and external auditory canals are clear. Oropharynx with no redness, swelling, or masses, exudates, or evidence of obstruction, uvula midline. Mucous membranes moist. Neck: Trachea midline, no thyromegaly or masses palpated, and no cervical lymphadenopathy. Supple, full range of motion without nuchal rigidity, or vertebral point tenderness. No Meningismus. Chest/axilla: Normal chest wall appearance and motion. Nontender with no deformity. No lesions are appreciated. Cardiovascular: Regular rate and rhythm with a normal S1 and S2. No gallops, murmurs, or rubs. Normal PMI, no JVD. No pulse deficits. Respiratory: Lungs have equal breath sounds bilaterally, clear to auscultation and percussion. No rales, rhonchi or wheezes noted. No increased work of breathing, no retractions or nasal flaring. Abdomen/GI: Soft, non-tender, with normal bowel sounds. No distension or tympany. No guarding or rebound. No evidence of tenderness throughout. Back: No spinal tenderness. No costovertebral tenderness. Full range of motion. 22:29 Skin: abscess, that is small, approximately 1.5 cm(s), of the right buttock. 22:29 Neuro: Orientation: is normal, Mentation: is normal, Cranial nerves: grossly normal, Motor: is normal, Gait: is steady. Vital Signs: 21:16 BP 162 / 87; Pulse 77; Resp 17 S; Temp 97.3(TE); Pulse Ox 99% on R/A; Weight 72.57 kg ca1 (R); Height 5 ft. 6 in. (167.64 cm) (R); 23:17 BP 152 / 75; Pulse 88; Resp 17 S; Pulse Ox 99% on R/A; jd3 21:16 Body Mass Index 25.82 (72.57 kg, 167.64 cm) ca1 Procedures: 22:58 I \T\ D: Incision and drainage was performed for an abscess of the right buttock Prepped pkl with Betadine, Anesthetized with 2 ml's 1% Lidocaine. Incised with #11 blade. Drained small amount purulent fluid. Packed with iodoform gauze, Dressing: sterile 4x4 gauze, the patient tolerated the procedure well. MDM: 21:23 Patient medically screened. pkl 22:58 Data reviewed: vital signs, nurses notes. [facility] 12/31 23:04 Order name: Wound Culture ar5 Administered Medications: 23:00 Drug: Lidocaine (1 %) 1 vials {Note: given by Dr. Cardenas.} Volume: 5 ml; Route: jd3 Infiltration; 23:18 Follow up: Response: No adverse reaction jd3 23:12 Drug: Bactrim (160 mg-800 mg (DS) 1 tablet Route: PO; jd3 23:18 Follow up: Response: Medication administered at discharge. jd3 Disposition: 01/01/20 23:00 Discharged to Home. Impression: Abscess right buttock. - Condition is Stable. - Prescriptions for Bactrim DS 800- 160 mg Oral Tablet - take 1 tablet by ORAL route every 12 hours for 7 days; 14 tablet. - Medication Reconciliation Form, Thank You Letter, Antibiotic Education, Prescription Opioid Use form. - Follow up: Private Physician; When: 2 - 3 days; Reason: Re-evaluation by your physician. - Problem is new. - Symptoms have improved. Signatures: Dispatcher [employer] EDMS Cardenas, PinMD MD ronni Jonathon, RN RN jd3 Helena Reyes RN RN ca1 Corrections: (The following items were deleted from the chart) 23:18 23:00 01/01/2020 23:00 Discharged to Home. Impression: Abscess right buttock. Condition jd3 is Stable. Forms are Medication Reconciliation Form, Thank You Letter, Antibiotic Education, Prescription Opioid Use. Follow up: Private Physician; When: 2 - 3 days; Reason: Re-evaluation by your physician. Problem is new. Symptoms have improved. pkl
--- NOTE | 2020-01-01 23:01 | ER ---
Nurse's Notes [facility] Name: Salvatore Goldman Age: 64 yrs Sex: Male : 1955 Arrival Date: 01/01/2020 Time: 21:10 Bed 5 Private MD: Diagnosis: Abscess right buttock Presentation: 12/31 21:16 Chief complaint: Patient states: abscess on buttocks x 1-2 days ago. Coronavirus ca1 screen: Proceed with normal triage. Patient denies a cough. Patient denies shortness of breath or difficulty breathing. Patient denies measured and/or subjective temperature greater than 100.4F prior to today's visit. Patient denies travel on a cruise ship or to a country the [facility] currently lists as an affected area. Patient denies contact with known and/or suspected case of COVID-19. Ebola Screen: Patient negative for fever greater than or equal to 101.5 degrees Fahrenheit, and additional compatible Ebola Virus Disease symptoms Patient denies exposure to infectious person. Patient denies travel to an Ebola-affected area in the 21 days before illness onset. No symptoms or risks identified at this time. Initial Sepsis Screen: Does the patient meet any 2 criteria? No. Patient's initial sepsis screen is negative. Does the patient have a suspected source of infection? No. Patient's initial sepsis screen is negative. Risk Assessment: Do you want to hurt yourself or someone else? Patient reports no desire to harm self or others. Onset of symptoms was January 01, 2020. 21:16 Method Of Arrival: Ambulatory ca1 21:16 Acuity: NARDA 4 ca1 Historical: - Allergies: 21:20 codeine sulfate (DIZZINESS); ca1 - Home Meds: 21:20 atropine 1 % Opht drop 1 drop once daily [Active]; carvedilol 12.5 mg Oral tab 1 tab 2 ca1 times per day [Active]; Isentress 400 mg Oral tab 1 tab 2 times per day [Active]; Kaletra 200-50 mg Oral tab 2 tabs 2 times per day [Active]; lamivudine 10 mg/mL Oral soln 2.5 mL once daily [Active]; metformin 500 mg Oral tab 1 tab daily [Active]; pantoprazole 40 mg Oral TbEC 1 tab once daily [Active]; prednisolone acetate 1 % Opht drps 1 drop 4 times per day [Active]; Daija-Kodak 0.8 mg Oral tab daily [Active]; tramadol 50 mg Oral tab 1 tab Q8HRS PRN [Active]; Vitamin D Oral 20433 unit WEEKLY [Active]; warfarin 10 mg Oral tab 1.5 tabs on M,W, F and 1 tab on T,Thurs, Sat, Sun [Active]; - PMHx: 21:20 Cirrhosis; Diabetes - NIDDM; Dialysis; heart valve; Hepatitis; HIV; Hyperlipidemia; ca1 Karposi Sarcoma (left leg); kidney failure; L arm HD access; - PSHx: 21:20 left forearm dialysis fistula; partial lobectomy right; CABG; heart valve replacement; ca1 - Immunization history:: Adult Immunizations up to date, Pneumococcal vaccine is up to date, Flu vaccine is up to date. - Social history:: Smoking status: Patient denies any tobacco usage or history of. Screenin:34 Abuse screen: Denies threats or abuse. Nutritional screening: No deficits noted. jd3 Tuberculosis screening: No symptoms or risk factors identified. Fall Risk Ambulatory Aid- None/Bed Rest/Nurse Assist (0 pts). Gait- Normal/Bed Rest/Wheelchair (0 pts) Mental Status- Oriented to own ability (0 pts). Total Humphrey Fall Scale indicates No Risk (0-24 pts). Assessment: 21:31 General: Appears in no apparent distress. uncomfortable, Behavior is calm, cooperative, jd3 appropriate for age. Pain: Complains of pain in left gluteus verenice and right gluteus verenice Quality of pain is described as aching, tender. Neuro: Level of Consciousness is awake, alert, obeys commands, Oriented to person, place, time, situation. Cardiovascular: Denies chest pain, Capillary refill < 3 seconds Patient's skin is warm and dry. Respiratory: Airway is patent Respiratory effort is even, unlabored, Respiratory pattern is regular, symmetrical, Denies cough, shortness of breath. GI: No signs and/or symptoms were reported involving the gastrointestinal system. : No signs and/or symptoms were reported regarding the genitourinary system. EENT: No signs and/or symptoms were reported regarding the EENT system. Derm: Skin is intact, Skin is dry, Skin is normal, Skin temperature is warm. Musculoskeletal: Circulation, motion, and sensation intact. Range of motion: intact in all extremities. Injury Description: small welts noted to both sides of the gluteus verenice. 23:17 Reassessment: Patient and/or family updated on plan of care and expected duration. Pain jd3 level reassessed. Patient is alert, oriented x 3, equal unlabored respirations, skin warm/dry/pink. pt reported understanding of discharge instructions. Patient states feeling better. Vital Signs: 21:16 BP 162 / 87; Pulse 77; Resp 17 S; Temp 97.3(TE); Pulse Ox 99% on R/A; Weight 72.57 kg ca1 (R); Height 5 ft. 6 in. (167.64 cm) (R); 23:17 BP 152 / 75; Pulse 88; Resp 17 S; Pulse Ox 99% on R/A; jd3 21:16 Body Mass Index 25.82 (72.57 kg, 167.64 cm) ca1 ED Course: 21:10 Patient arrived in ED. fj1 21:18 Triage completed. ca1 21:20 Arm band placed on right wrist. ca1 21:22 David Cardenas MD is Attending Physician. pkl 21:25 Dean Cee RN is Primary Nurse. jd3 21:34 Patient has correct armband on for positive identification. Bed in low position. Call jd3 light in reach. Side rails up X 1. Adult w/ patient. Pulse ox on. NIBP on. 23:00 Assist provider with I \T\ D: of an abscess on right gluteus Set up I\T\D tray. Performed sarah 3 by David Cardenas MD Culture sent to lab. Wound packed. iodoform gauze, Dressing with 4X4s, tape Patient tolerated well. Patient did not have IV access during this emergency room visit. Administered Medications: 23:00 Drug: Lidocaine (1 %) 1 vials {Note: given by Dr. Cardenas.} Volume: 5 ml; Route: jd3 Infiltration; 23:18 Follow up: Response: No adverse reaction jd3 23:12 Drug: Bactrim (160 mg-800 mg (DS) 1 tablet Route: PO; jd3 23:18 Follow up: Response: Medication administered at discharge. jd3 Outcome: 23:00 Discharge ordered by . pkl 23:18 Discharged to home ambulatory, with family. jd3 23:18 Condition: stable 23:18 Discharge instructions given to patient, Instructed on discharge instructions, follow up and referral plans. medication usage, Demonstrated understanding of instructions, follow-up care, medications, Prescriptions given X 1. 23:18 Patient left the ED. jd3 Signatures: David Cardenas MD MD pkl Davies, Jonathon, RN RN jd3 Helena Reyes RN RN ca1 Trace Hooper Hilton
[2020-01-01] MEDS ORDERED: SMZ./TMP. 800/160 MG TABLET ONE (23:16)
[2020-01-02 00:26] VITALS: TEMP 97.3; O2SAT 99
[2020-01-02 00:28] VITALS: BP 152/75
== END 2020-01-01 23:18 | disposition home or self-care (01) ==
LOC: ER 21:08
PROC: 0J990ZZ Drainage of Buttock Subcutaneous Tissue and Fascia, Open Approach (ICD-10-PCS; principal; 2020-01-01)
DX: L02.31 Cutaneous abscess of buttock (principal); N19 Unspecified kidney failure; E11.9 Type 2 diabetes mellitus without complications; B20 Human immunodeficiency virus [HIV] disease; C46.0 Kaposi's sarcoma of skin; Z79.01 Long term (current) use of anticoagulants; Z99.2 Dependence on renal dialysis; Z95.4 Presence of other heart-valve replacement; Z95.1 Presence of aortocoronary bypass graft
CPT/HCPCS: 87070; 87205; 99284

== ENCOUNTER 2020-02-26 16:29 | Emergency (ER) | payer OTHER ==
[2020-02-26] MEDS ORDERED: HYDROCODONE/APAP 7.5/325 MG TAB ONE (17:09)
--- NOTE | 2020-02-26 18:04 | ER ---
Nurse's Notes [facility] Name: Salvatore Goldman Age: 64 yrs Sex: Male : 1955 Arrival Date: 02/26/2020 Time: 16:33 Bed 13 Private MD: Diagnosis: Nondisplaced fracture of base of neck of left femur Presentation: 02/25 16:33 Chief complaint: EMS states: Working outside, got overheated and slipped and fell onto jl7 his left side, denies LOC, did not hit head, reports left hip pain. Left foot noted to be rotated. Care prior to arrival: None. Mechanism of Injury: Fall from standing position. Trauma event details: Injury occurred in the [facility], Injury occurred: at home. Injury occurred: February 26, 2020. 16:33 Acuity: NARDA 3 jl7 16:33 Method Of Arrival: EMS: [facility] jl7 16:35 Coronavirus screen: Proceed with normal triage. Patient denies a cough. Patient denies jl7 shortness of breath or difficulty breathing. Patient denies measured and/or subjective temperature greater than 100.4F prior to today's visit. Patient denies travel on a cruise ship or to a country the [facility] currently lists as an affected area. Patient denies contact with known and/or suspected case of COVID-19. Ebola Screen: No symptoms or risks identified at this time. Initial Sepsis Screen: Does the patient meet any 2 criteria? No. Patient's initial sepsis screen is negative. Does the patient have a suspected source of infection? No. Patient's initial sepsis screen is negative. Risk Assessment: Do you want to hurt yourself or someone else? Patient reports no desire to harm self or others. Onset of symptoms was February 26, 2020. Transition of care: patient was not received from another setting of care. Triage Assessment: 16:37 General: Appears in no apparent distress. uncomfortable, Behavior is calm, cooperative, jl7 appropriate for age. Pain: Complains of pain in left hip Pain currently is 10 out of 10 on a pain scale. Neuro: Level of Consciousness is awake, alert, obeys commands, Oriented to person, place, time, situation. Cardiovascular: Patient's skin is warm and dry. Respiratory: Airway is patent Respiratory effort is even, unlabored, Respiratory pattern is regular, symmetrical. Derm: Skin is dry, Skin is normal, Skin temperature is cool. Musculoskeletal: Range of motion: limited in left hip. Trauma Activation: Not Applicable Physician: ED Physician; Name: ; Notified At: ; Arrived At: Physician: General Surgeon; Name: ; Notified At: ; Arrived At: Physician: Radiology; Name: ; Notified At: ; Arrived At: Physician: Respiratory; Name: ; Notified At: ; Arrived At: Physician: Lab; Name: ; Notified At: ; Arrived At: Historical: - Allergies: 16:37 codeine sulfate (DIZZINESS); jl7 - Home Meds: 16:37 atropine 1 % Opht drop 1 drop once daily [Active]; carvedilol 12.5 mg Oral tab 1 tab 2 jl7 times per day [Active]; Isentress 400 mg Oral tab 1 tab 2 times per day [Active]; Kaletra 200-50 mg Oral tab 2 tabs 2 times per day [Active]; lamivudine 10 mg/mL Oral soln 2.5 mL once daily [Active]; metformin 500 mg Oral tab 1 tab daily [Active]; pantoprazole 40 mg Oral TbEC 1 tab once daily [Active]; prednisolone acetate 1 % Opht drps 1 drop 4 times per day [Active]; Daija-Kodak 0.8 mg Oral tab daily [Active]; tramadol 50 mg Oral tab 1 tab Q8HRS PRN [Active]; Vitamin D Oral 82242 unit WEEKLY [Active]; warfarin 10 mg Oral tab 1.5 tabs on M,W, F and 1 tab on T,Thurs, Sat, Sun [Active]; - PMHx: 16:37 Cirrhosis; Diabetes - NIDDM; Dialysis; heart valve; Hepatitis; HIV; Hyperlipidemia; jl7 Karposi Sarcoma (left leg); kidney failure; L arm HD access; - PSHx: 16:37 left forearm dialysis fistula; partial lobectomy right; CABG; heart valve replacement; jl7 - Immunization history:: Adult Immunizations unknown. - Social history:: Smoking status: Patient denies any tobacco usage or history of. Screenin:24 Abuse screen: Denies threats or abuse. Denies injuries from another. Nutritional jl7 screening: No deficits noted. Tuberculosis screening: No symptoms or risk factors identified. 22:02 Fall Risk Fall in past 12 months (25 points). ao Assessment: 16:35 General: See triage assessment. jl7 17:30 Reassessment: Patient appears in no apparent distress at this time. Patient and/or jl7 family updated on plan of care and expected duration. Pain level reassessed. Patient is alert, oriented x 3, equal unlabored respirations, skin warm/dry/pink. 18:30 Reassessment: Pt reports medication did not help, ERP notified, see [facility] for orders. jl7 22:02 Reassessment: Hand off report to [facility]. Patient stable and V/S WNL. ao Vital Signs: 16:35 BP 108 / 80; Pulse 76; Resp 16; Temp 97.3(O); Pulse Ox 100% on R/A; Pain 10/10; jl7 17:30 BP 124 / 81; Pulse 79; Resp 17; Pulse Ox 100% ; jl7 18:00 Pain 9/10; jl7 18:30 BP 132 / 81; Pulse 77; Resp 17; Pulse Ox 100% ; Pain 9/10; jl7 ED Course: 16:33 Patient arrived in ED. jl7 16:35 Triage completed. jl7 16:35 Paco Mckeon PA is PHCP. jr8 16:35 Boston Johnson MD is Attending Physician. jr8 16:37 Arm band placed on left wrist. jl7 16:45 Patient has correct armband on for positive identification. Placed in gown. Bed in low jl7 position. Call light in reach. Side rails up X 1. Pulse ox on. NIBP on. 16:45 Warm blanket given. jl7 16:58 Jase Hughes RN is Primary Nurse. jl7 17:47 XRAY Hip LEFT 2 view In Process Unspecified. EDMS 18:44 initiated a transfer with CHERELLE Chaidez from the [facility] transfer center. eb 18:[address] Callejas the orthopedic belt sander stone from [facility] with Paco Lamar for eb patient transfer consultation. 19:12 CHERELLE Chaidez from the Transfer Center called to do Doc to Doc with Linda. tt3 22:01 No provider procedures requiring assistance completed. Patient transferred, IV remains ao in place. 22:24 Primary Nurse role handed off by Jase Hughes, LAURYN ao Administered Medications: 17:00 Drug: Beckemeyer (7.5 mg-325 mg) 1 tabs Route: PO; jl7 18:00 Follow up: Pain 9/10 Adult; Response: No adverse reaction; Pain is decreased jl7 18:46 Drug: fentaNYL (PF) 50 mcg Route: IVP; Site: right forearm; jl7 19:41 Follow up: Response: No adverse reaction ao 20:12 Drug: morphine 4 mg Route: IVP; Site: right forearm; ao 22:25 Follow up: Response: No adverse reaction ao 20:13 Drug: Benadryl 25 mg Route: IVP; Site: right forearm; ao 22:26 Follow up: Response: No adverse reaction ao 22:20 Drug: morphine 4 mg Route: IVP; Site: left forearm; ao 22:25 Follow up: Response: Medication administered at discharge. ao Outcome: 18:03 ER care complete, transfer ordered by MD. sutherland 22:01 Transferred by ground EMS to [facility], Transfer form completed. ao X-rays sent w/ patient. 22:01 Condition: stable 22:01 Instructed on the need for transfer. 22:03 Patient left the ED. ao 22:26 Patient left the ED. ao Signatures: Dispatcher [employer] EDMS Paco Mckeon PA PA jr8 Niranjan Maradiaga RN RN Jase Garcia RN RN jl7 Amanda Sinha Tyler tt3
--- NOTE | 2020-02-26 18:04 | EDPHYS ---
Physician Documentation [facility] Name: Salvatore Goldman Age: 64 yrs Sex: Male : 1955 Arrival Date: 02/26/2020 Time: 16:33 Bed 13 Private MD: ED Physician Boston Johnson HPI: 02/25 16:55 This 64 yrs old Black Male presents to ER via EMS with complaints of Hip Injury. jr8 16:55 The patient or guardian reports decreased range of motion, pain. that occurred jr8 outdoors, sustained from a fall, The patient is not able to ambulate. The complaints affect the left hip. Onset: The symptoms/episode began/occurred acutely, today. Modifying factors: The symptoms are alleviated by nothing, the symptoms are aggravated by any movement. Associated signs and symptoms: Loss of consciousness: the patient experienced no loss of consciousness. Severity of symptoms: At their worst the symptoms were moderate, in the emergency department the symptoms are unchanged. The patient has not experienced similar symptoms in the past. The patient has not recently seen a physician. Patient stated that he tripped and fell off porch landing on left buttock. Pain with decreased ROM to left hip since incident . Historical: - Allergies: 16:37 codeine sulfate (DIZZINESS); jl7 - Home Meds: 16:37 atropine 1 % Opht drop 1 drop once daily [Active]; carvedilol 12.5 mg Oral tab 1 tab 2 jl7 times per day [Active]; Isentress 400 mg Oral tab 1 tab 2 times per day [Active]; Kaletra 200-50 mg Oral tab 2 tabs 2 times per day [Active]; lamivudine 10 mg/mL Oral soln 2.5 mL once daily [Active]; metformin 500 mg Oral tab 1 tab daily [Active]; pantoprazole 40 mg Oral TbEC 1 tab once daily [Active]; prednisolone acetate 1 % Opht drps 1 drop 4 times per day [Active]; Daija-Kodak 0.8 mg Oral tab daily [Active]; tramadol 50 mg Oral tab 1 tab Q8HRS PRN [Active]; Vitamin D Oral 92379 unit WEEKLY [Active]; warfarin 10 mg Oral tab 1.5 tabs on M,W, F and 1 tab on T,Thurs, Sat, Sun [Active]; - PMHx: 16:37 Cirrhosis; Diabetes - NIDDM; Dialysis; heart valve; Hepatitis; HIV; Hyperlipidemia; jl7 Karposi Sarcoma (left leg); kidney failure; L arm HD access; - PSHx: 16:37 left forearm dialysis fistula; partial lobectomy right; CABG; heart valve replacement; jl7 - Immunization history:: Adult Immunizations unknown. - Social history:: Smoking status: Patient denies any tobacco usage or history of. ROS: 17:48 Eyes: Negative for injury, pain, redness, and discharge, ENT: Negative for injury, jr8 pain, and discharge, Neck: Negative for injury, pain, and swelling, Cardiovascular: Negative for chest pain, palpitations, and edema, Respiratory: Negative for shortness of breath, cough, wheezing, and pleuritic chest pain, Abdomen/GI: Negative for abdominal pain, nausea, vomiting, diarrhea, and constipation, Back: Negative for injury and pain, Skin: Negative for injury, rash, and discoloration, Neuro: Negative for headache, weakness, numbness, tingling, and seizure. 17:48 MS/extremity: Positive for decreased range of motion, pain, tenderness, of the left hip. Exam: 17:48 Eyes: Pupils equal round and reactive to light, extra-ocular motions intact. Lids and jr8 lashes normal. Conjunctiva and sclera are non-icteric and not injected. Cornea within normal limits. Periorbital areas with no swelling, redness, or edema. ENT: Nares patent. No nasal discharge, no septal abnormalities noted. Tympanic membranes are normal and external auditory canals are clear. Oropharynx with no redness, swelling, or masses, exudates, or evidence of obstruction, uvula midline. Mucous membranes moist. Neck: Trachea midline, no thyromegaly or masses palpated, and no cervical lymphadenopathy. Supple, full range of motion without nuchal rigidity, or vertebral point tenderness. No Meningismus. Cardiovascular: Regular rate and rhythm with a normal S1 and S2. No gallops, murmurs, or rubs. Normal PMI, no JVD. No pulse deficits. Respiratory: Lungs have equal breath sounds bilaterally, clear to auscultation and percussion. No rales, rhonchi or wheezes noted. No increased work of breathing, no retractions or nasal flaring. Abdomen/GI: Soft, non-tender, with normal bowel sounds. No distension or tympany. No guarding or rebound. No evidence of tenderness throughout. Back: No spinal tenderness. No costovertebral tenderness. Full range of motion. Skin: Warm, dry with normal turgor. Normal color with no rashes, no lesions, and no evidence of cellulitis. Neuro: Awake and alert, GCS 15, oriented to person, place, time, and situation. Cranial nerves II-XII grossly intact. Motor strength 5/5 in all extremities. Sensory grossly intact. Cerebellar exam normal. Normal gait. 17:48 Musculoskeletal/extremity: Extremities: grossly normal except: noted in the left hip: decreased ROM, pain, tenderness, left outer hip at greater trochanter region , ROM: limited active range of motion, limited passive range of motion, limited active range of motion due to pain, limited passive range of motion due to pain, Circulation is intact in all extremities. Sensation intact. Vital Signs: 16:35 BP 108 / 80; Pulse 76; Resp 16; Temp 97.3(O); Pulse Ox 100% on R/A; Pain 10/10; jl7 17:30 BP 124 / 81; Pulse 79; Resp 17; Pulse Ox 100% ; jl7 18:00 Pain 9/10; jl7 18:30 BP 132 / 81; Pulse 77; Resp 17; Pulse Ox 100% ; Pain 9/10; jl7 MDM: 16:37 Patient medically screened. jr8 17:58 Data reviewed: vital signs, nurses notes, radiologic studies, plain films. Data jr8 interpreted: Pulse oximetry: on room air is 100 %. Interpretation: normal. Counseling: I had a detailed discussion with the patient and/or guardian regarding: the historical points, exam findings, and any diagnostic results supporting the discharge/admit diagnosis, radiology results, the need to transfer to another facility, [facility] does not immediately have the required specialist. 19:12 ED course: Discussed case with Dr. Callejas orthopedics at [facility]. Accepted patient . 02/25 18:38 Order name: CBC with Diff; Complete Time: 19:54 02/25 18:38 Order name: Basic Metabolic Panel; Complete Time: 19:54 02/25 16:50 Order name: XRAY Hip LEFT 2 view; Complete Time: 18:31 02/25 18:38 Order name: Protime (+inr); Complete Time: 19:58 [facility] 02/25 18:38 Order name: Ptt, Activated; Complete Time: 19:58 [facility] 02/25 18:59 Order name: EKG - Nurse/Tech; Complete Time: 19:41 [facility] 02/25 19:15 Order name: EKG; Complete Time: 19:15 jl7 Administered Medications: 17:00 Drug: Monument (7.5 mg-325 mg) 1 tabs Route: PO; jl7 18:00 Follow up: Pain 9/10 Adult; Response: No adverse reaction; Pain is decreased jl7 18:46 Drug: fentaNYL (PF) 50 mcg Route: IVP; Site: right forearm; jl7 19:41 Follow up: Response: No adverse reaction ao 20:12 Drug: morphine 4 mg Route: IVP; Site: right forearm; ao 22:25 Follow up: Response: No adverse reaction ao 20:13 Drug: Benadryl 25 mg Route: IVP; Site: right forearm; ao 22:26 Follow up: Response: No adverse reaction ao 22:20 Drug: morphine 4 mg Route: IVP; Site: left forearm; ao 22:25 Follow up: Response: Medication administered at discharge. ao Disposition: 02/26 07:13 Co-signature as Attending Physician, Boston Johnson MD I agree with the assessment and beny plan of care. Disposition: 02/26/20 18:03 Transfer ordered to [facility]. Diagnosis is Nondisplaced fracture of base of neck of left femur. - Reason for transfer: Higher level of care. - Accepting physician is [facility]. - Condition is Stable. - Problem is new. - Symptoms are unchanged. Signatures: Dispatcher [employer] EDIN Boston Johnson MD MD cha Roszak, Josh, PA PA jr8 Niranjan Maradiaga RN RN Jase Garcia RN RN jl7 Corrections: (The following items were deleted from the chart) 02/25 22:03 18:03 02/26/2020 18:03 Transfer ordered to [facility]. ao Diagnosis is Nondisplaced fracture of base of neck of left femur. Reason for transfer: Higher level of care. Accepting physician is [facility]. Condition is Stable. Problem is new. Symptoms are unchanged. jr8 22:26 22:03 02/26/2020 18:03 Transfer ordered to [facility]. ao Diagnosis is Nondisplaced fracture of base of neck of left femur. Reason for transfer: Higher level of care. Accepting physician is [facility]. Condition is Stable. Problem is new. Symptoms are unchanged. ao
--- NOTE | 2020-02-26 18:18 | RAD REPORT ---
EXAM DESCRIPTION: RAD - Hip Left 2 View - 02/26/2020 5:47 pm CLINICAL HISTORY: Left hip pain status post injury FINDINGS: Lucency within the neck of the left femur likely a mildly displaced fracture. No dislocat ion Osteoporosis
[2020-02-26] MEDS ORDERED: FENTANYL CITR 100 MCG/2 ML ONE (18:48)
--- OUTSIDE RECORDS SUMMARY | 2020-02-26 19:01 | XMS REPORT | Clinical Summary ---
:1955 Author Organization [facility] Address [address] [place] [address] Care Team Providers Name Role Phone Rufus Joel Unavailable Pcp, No Primary Care Provider Unavailable Allergies Active Allergy Reactions Severity Noted Date Comments Codeine Other (See Comments) Medium 12/02/2017 Pt roderick alvarado intolerance to pain meds 12/18/18 Medications Medication Sig Dispensed Refills Start Date End Date Status multivitamin with Take 1 tablet by 0 Active minerals tablet mouth daily. cholecalciferol, Take by mouth. 0 Active vitamin D3, 2,000 unit Cap lopinavir-ritonavir Take 2 tablets by 0 Active (KALETRA) 200-50 mg mouth 2 (two) per tablet times daily. raltegravir Take 400 mg by 0 Act samreen (ISENTRESS) 400 mg mouth 2 (two) tablet times daily. aspirin 81 MG EC Take 81 mg by 0 Active tablet mouth daily. atorvastatin Take 20 mg by 0 Act samreen (LIPITOR) 20 MG mouth daily. tablet ergocalciferol Take 50,000 Units 0 Active (VITAMIN D2) 50,000 by mouth once a unit capsule week. warfarin (COUMADIN) See patient 0 08/20/2018 Active 6 MG tablet instructions for details, 12 mg on Saturday, Saturday and Saturday, and 11 mg on Saturday, , Saturday, Saturday. pantoprazole Take 1 tablet (40 30 tablet 0 01/06/2019 Active (PROTONIX) 40 MG mg total) by mouth tablet daily. lamiVUDine (EPIVIR) Take 2.5 mLs (25 240 mL 0 05/29/2018 10 mg/mL solution mg total) by mouth 9 daily. carvedilol (COREG) Take 1 tablet 60 tablet 5 08/20/2018 12.5 MG tablet (12.5 mg total) by 9 mouth 2 (two) times daily No more refills through my office. calcium acetate Take 1 capsule 60 capsule 1 01/06/2019 02 (PHOSLO) 667 mg (667 mg total) by 0 capsule mouth 2 (two) times daily before meals. losartan (COZAAR) 50 Take 1 tablet (50 30 tablet 1 01/06/2019 MG tablet mg total) by mouth 0 daily. Active Problems Problem Noted Date Drug-induced thrombocytopenia 12/22/2018 S/P R-thoracotomy, decort, 12/17 by Sam 12/17/2018 Recurrent right pleural effusion 08/13/2018 Pleural effusion 07/29/2018 Chronic anticoagulation 05/28/2018 Scrotal edema 05/28/2018 Groin abscess 05/19/2018 S/P MVR (mitral valve replacement) 01/28/2018 Pulmonary HTN 01/28/2018 ESRD (end stage renal disease) 01/09/2018 HIV (human immunodeficiency virus infection) 8 DM II (diabetes mellitus, type II), controlled 018 Paroxysmal atrial fibrillation 01/08/2018 Hepatic cirrhosis due to chronic hepatitis C infection 12/03/2016 HTN (hypertension) 11/18/2014 Encounters Date Type Specialty Care Team Description 02/26/2020 Hospital Encounter after 02/25/2019 Family History Medical History Relation Name Comments Diabetes Father Heart disease Mother Relation Name Status Comments Father Mother Social History Tobacco Use Types Packs/Day Years Used Date Never Smoker Smokeless Tobacco: Never Used Alcohol Use Drinks/Week oz/Week Comments No Sex Assigned at Date Recorded Not on file Job Start Date Occupation Industry Not on file Not on file Not on file Travel History Travel Start Travel End No recent travel history available. 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 Device Shelf Model / Identifier Expiration Serial / Date Lot Sys Atriclip Exclsn Flx 40mm [id number] - Sn/A Cardiovascular N/A: ATRICURE 07/03/2020 [id number] / Implanted: Qty: 1 on 01/10/2018 by Tasneem Black MD Heart N/A / [id number] Cath Dlys Trialysis Pwr 30cm [id number] - [id number] Catheter Dial ysis Left: CR BARD:ACCESS 03/01/2019 [id number] / Implanted: Qty: 1 on 01/10/2018 by Tasneem Black MD Lo ng Term Groin SYS / [id number] Valve Mitrl [facility] Std Mstr 27mm [id number] - [id number] Valves Heart [facility] SHEA 12/27/2021 [id number] / Implanted: Qty: 1 on 01/10/2018 by Tasneem Black MD MED:CARDIAC [id number] / SURG N/A Results Not on fileafter 02/25/2019 Insurance Payer Benefit Plan / Group Subscriber ID Type Phone A ddress MEDICARE MEDICARE A B xxxxxxxxxxx Medicare Advance Directives For more information, please contact:[address] [phone] Code Status Date Activated Date Inactivated Comments Full Code 12/16/2018 12:58 PM 01/06/2019 5:42 PM This code status was determined by: Patient Full Code 12/03/2018 6:25 PM 12/16/2018 12:58 PM This code status was determined by: Patient Full Code 08/13/2018 12:34 AM 12/03/2018 1:45 PM This code status was determined by: Patient Full Code 07/29/2018 1:52 AM 08/12/2018 9:21 PM This code status was determined by: Patient Full Code 05/19/2018 8:26 PM 05/28/2018 7:09 PM This code status was determined by: Patient
--- OUTSIDE RECORDS SUMMARY | 2020-02-26 19:01 | XMS REPORT | Clinical Summary ---
:1955 Author Organization [facility] Address [address] [place] [address] Care Team Providers Name Role Phone Asked, No Pcp Primary Care Provider Unavailable Allergies No Known Allergies Medications Medication Sig Dispensed Refills Start Date End Date Status metFORMIN Take 1,000 mg by 0 Act samreen (GLUCOPHAGE) 1,000 mg mouth 2 (two) tablet times a day with meals. raltegravir Take 400 mg by 0 Act samreen (ISENTRESS) 400 mg mouth 2 (two) tablet times a day. traMADol (ULTRAM) 50 Take 50 mg by 0 Active mg tabletIndications: mouth every 6 acute pain (six) hours as needed for moderate pain .acute pain. ergocalciferol Take 50,000 Units 0 Active (VITAMIN D2) 50,000 by mouth once a unit capsule week. carvedilol (COREG) Take 12.5 mg by 0 Active 12.5 MG tablet mouth 2 (two) times a day with meals. pantoprazole Take 40 mg by 0 Act samreen (PROTONIX) 40 MG EC mouth daily. tablet warfarin (COUMADIN) Take 10 mg by 0 Active 10 MG tablet mouth daily. Take 105mg on Saturday, , and Saturday and 1 tablet on all other days lopinavir-ritonavir Take 2 tablets by 0 Active (KALETRA) 200-50 mg mouth 2 (two) per tablet times a day. prednisoLONE sodium 1 drop 4 (four) 0 Active phosphate 1 % times a day. ophthalmic solution lamiVUDine (EPIVIR) Take by mouth 2 0 Active 10 mg/mL solution (two) times a day. sulfamethoxazole-trim Take 1 tablet by 0 Active ethoprim (BACTRIM DS) mouth 2 (two) 800-160 mg per tablet times a day. codeine-guaifenesin Take 5 mL by 0 Active (GUAIFENESIN AC) mouth 3 (three) 10-100 mg/5 mL times a day as liquidIndications: needed for cough acute pain .acute pain. clotrimazole Apply topically 2 0 Active (LOTRIMIN) 1 % cream (two) times a day. oseltamivir (TAMIFLU) 30 mg immediately 6 capsule 0 09/12/2019 Active 30 MG capsule before and 30 mg after dialysis. 3 dialysis days. ondansetron ODT Take 1 tablet (4 15 tablet 0 09/12/20192019 (ZOFRAN-ODT) 4 MG mg total) by disintegrating tablet mouth every 8 (eight) hours as needed for nausea or vomiting for up to 5 days. Active Problems Not on file Encounters Date Type Specialty Care Team Description 12/04/2019 Travel 11/11/2019 Travel 09/12/2019 Emergency Emergency Medicine Ty Nieves (Primary Dx); MD Sushant Viral syndrome after 02/25/2019 Social History Tobacco Use Types Packs/Day Years Used Date Never Smoker Smokeless Tobacco: Never Used Alcohol Use Drinks/Week oz/Week Comments Never Alcohol Habits Answer Date Recorded How often do you have a drink containing alcohol? Never 09/12/2019 How many drinks containing alcohol do you have on a typical Not asked day when you are drinking? How often do you have six or more drinks on one occasion? No t asked Sex Assigned at Date Recorded Not on file Job Start Date Occupation Industry Not on file Not on file Not on file Travel History Travel Start Travel End No recent travel history available. Last Filed Vital Signs Vital Sign Reading Time Taken Comments Blood Pressure 155/80 09/12/2019 9:52 PM [facility] Pulse 104 09/12/2019 9:52 PM [facility] Temperature 38.4 C (101.2 F) 09/12/2019 9:52 PM [facility] Respiratory Rate 16 09/12/2019 9:52 PM [facility] Oxygen Saturation 97% 09/12/2019 9:52 PM [facility] L[facility] Inhaled Oxygen Concentration - - Weight 72.6 kg (160 lb) 09/12/2019 6:46 PM [facility] Height 170.2 cm (5' 7") 09/12/2019 6:46 PM [facility] Body Mass Index 25.06 09/12/2019 6:46 PM [facility] Plan of Treatment Date Type Specialty Care Team Description 03/09/2020 Office Visit Ophthalmology Gildardo, Cristiano T. , MD [address] [place], [place] [address] [phone] Health Maintenance Due Date Last Done Comments DIABETIC RETINAL EYE EXAM 1955 DIABETIC FOOT EXAM 04/24/1967 COLONOSCOPY SCREENING 04/24/2007 SHINGLES VACCINES (#1) 04/24/2007 INFLUENZA VACCINE 04/02/2020 Procedures Procedure Name Priority Date/Time Associated Comments Diagnosis CT ABDOMEN PELVIS WO STAT 09/12/2019 8:46 Res ults for this CONTRAST PM [facility] procedure are i n the results section. XR CHEST 2 VW STAT 09/12/2019 8:44 Results fo r this PM [facility] procedure are i n the results section. BLOOD CULTURE, AEROBIC STAT 09/12/2019 8:01 R esults for this & ANAEROBIC PM [facility] procedure are i n the results section. MANUAL DIFFERENTIAL STAT 09/12/2019 7:43 Resu lts for this PM [facility] procedure are i n the results section. BILIRUBIN DIRECT STAT 09/12/2019 7:43 Results for this PM [facility] procedure are i n the results section. COMPREHENSIVE METABOLIC STAT 09/12/2019 7:43 Results for this PANEL PM [facility] procedure are i n the results section. ESTIMATED GFR STAT 09/12/2019 7:43 Results fo r this PM [facility] procedure are i n the results section. VENOUS BLOOD GAS STAT 09/12/2019 7:43 Results for this PM [facility] procedure are i n the results section. TROPONIN, I-STAT STAT 09/12/2019 7:43 Results for this PM [facility] procedure are i n the results section. LACTIC ACID, I-STAT STAT 09/12/2019 7:43 Resu lts for this PM [facility] procedure are i n the results section. CBC WITH PLATELET AND STAT 09/12/2019 7:43 Re sults for this DIFFERENTIAL PM [facility] procedure are i n the results section. BLOOD CULTURE, AEROBIC STAT 09/12/2019 7:43 R esults for this & ANAEROBIC PM [facility] procedure are i n the results section. INFLUENZA ANTIGEN Routine 09/12/2019 7:43 Result s for this PM [facility] procedure are i n the results section. ECG ED PRELIMINARY Routine 09/12/2019 7:29 Resul ts for this INTERPRETATION PM [facility] procedure are in the results section. ECG 12-LEAD STAT 09/12/2019 7:25 Results for this PM [facility] procedure are i n the results section. after 02/25/[address] Abdomen Pelvis Wo Contrast (09/12/2019 8:46 PM [facility] LIFT TRIMMER) Specimen Narrative Performed At EXAMINATION: CT ABDOMEN PELVIS WO CONT RAST [facility] CLINICAL HISTORY: 64 years Male abd pain n v TECHNIQUE: Multiple axial images of the abdomen and pe lvis were obtained without intravenous administration of iodinated contra st. Sagittal and coronal computerized reformatted images were also obta ined. CT imaging was performed with iterative reconstruction techniques and/or automated exposure co ntrol to reduce radiation dose. The lack of intravenous contrast reduc es the sensitivity of detecting solid organ disease. COMPARISON: None. IMPRESSION: Lung bases: Heart is enlarged with small right pleural effusion/pleural thickening and basilar volume loss. Liver: Unenhanced liver is unremarkable. No focal mass. Gallbladder/Biliary: There are small calcified stones in the dependent portion of the gallbladder. There is no gallbladder di stention or biliary duct dilation. Spleen: Spleen is mildly enlarged measur ing 14 cm in length. Pancreas: Pancreas is mildly atrophic. Adrenal Glands: The adrenal glands are u nremarkable. Kidneys: Kidneys are moderately atrophic without hydro nephrosis or nephrolithiasis. Vascular: Scattered aortoiliac atherosclerotic calcifi cation present without aneurysm. Nodes: Nonspecific portacaval node present measuring u p to 1.3 x 2.7 cm. Multiple small retroperitoneal nodes also present with left para-aortic nodes measuring up to 1 cm in short axis. Small pelvic sidewall nodes are present with external iliac node measuring up to 1 cm and diameter. Bowel: No evidence of intestinal obstruction or inflam mation. The appendix is normal. Ascites/fluid collections: No ascites or fluid collections. Genitourinary: Bladder is unremarkable. Prostate is not enlarged. Bones/soft tissues: Bones are mildly demineralized. No suspicious osseous lesion noted. Postsurgical changes likely seco ndary to vascular intervention noted in the right and left groin. SUMMARY: 1.Cardiomegaly with small right pleural effusion/pleur al thickening and basilar volume loss. 2.Cholelithiasis. 3.Mild splenomegaly. 4.Nonspecific periportal nodes and small er retroperitoneal nodes. 5.Atrophic pancreas and kidneys. 6.No intestinal obstruction or evidence of inflammation. Procedure Note Interface, Radiology Results Incoming - 09/12/2019 8:56 PM [facility] EXAMINATION: CT ABDOMEN PELVIS WO CONTRAST CLINICAL HISTORY: 64 years Male abd pain n v TECHNIQUE: Multiple axial images of the abdomen and pelvis were obtained without intravenous administration of iodinated contrast. Sagittal and coronal computerized reformatted images were also obtained. CT imaging was performed with iterative reconstruction techniques and/or automat ed exposure control to reduce radiation dose. The lack of intravenous contrast reduces the sensitivity of detecting solid organ disease. COMPARISON: None. IMPRESSION: Lung bases: Heart is enlarged with small right pleural effusion/pleural thickening and basilar volume loss. Liver: Unenhanced liver is unremarkable. No focal mass. Gallbladder/Biliary: There are small shakira cified stones in the dependent portion of the gallbladder. There is no gallbladder distention or biliary duct dilation. Spleen: Spleen is mildly enlarged measur ing 14 cm in length. Pancreas: Pancreas is mildly atrophic. Adrenal Glands: The adrenal glands are u nremarkable. Kidneys: Kidneys are moderately atrophic without hydronephrosis or nephrolithiasis. Vascular: Scattered aortoiliac atheroscl erotic calcification present without aneurysm. Nodes: Nonspecific portacaval node prese nt measuring up to 1.3 x 2.7 cm. Multiple small retroperitoneal nodes also present with left para-aortic nodes measuring up to 1 cm in short axis. Small pelvic sidewall nodes are present with external iliac node measuring up to 1 cm and diameter. Bowel: No evidence of intestinal obstruc tion or inflammation. The appendix is normal. Ascites/fluid collections: No ascites or fluid collections. Genitourinary: Bladder is unremarkable. Prostate is not enlarged. Bones/soft tissues: Bones are mildly dem ineralized. No suspicious osseous lesion noted. Postsurgical changes likely secondary to vascular intervention noted in the right and left groin. SUMMARY: 1.Cardiomegaly with small right pleural effusion/pleural thickening and basilar volume loss. 2.Cholelithiasis. 3.Mild splenomegaly. 4.Nonspecific periportal nodes and small er retroperitoneal nodes. 5.Atrophic pancreas and kidneys. 6.No intestinal obstruction or evidence of inflammation. Performing Organization Address City/State/Zipcode Phone Number [facility] [address] [place] [address] XR Chest 2 Vw (09/12/2019 8:44 PM [facility]MER) Specimen Narrative Performed At EXAMINATION: [facility] CLINICAL H[facility]: sob COMPARISON: None IMPRESSION: Status post median sternotomy and valvular surgery. At rial clip present. There is mild cardiomegaly. There is mild central vasc ular congestion. There is small right pleural effusion with volume loss in the right base. Lungs are otherwise clear. There i s no pneumothorax. Visualized osseous stru ctures are intact. [facility]-[id number] Procedure Note Hm Interface, Radiology Results Incoming - 09/12/2019 8:49 PM [facility]MER EXAMINATION: XR CHEST 2 VW CLINICAL HISTORY: sob COMPARISON: None IMPRESSION: Status post median sternotomy and valvul ar surgery. Atrial clip present. There is mild cardiomegaly. There is mild central vascular congestion. There is small right pleural effusion with volume loss in the right base. Lungs are otherwise clear. There is no pneumothorax. Visualized osseous stru ctures are intact. [facility]-[id number] Performing Organization Address City/[facility] Phone Number [facility] [address] [place] [address] Blood culture, aerobic & anaerobic (09/12/2019 8:01 PM [facility] LIFT TRIMMER)Only the most recent of2 resultswithin the time period is included. Pathologist [facility] Blood culture No growth after 5 days of incubation. [facility] isolate Comment: HOSPITAL Specimen Information Specimen Source: Blood Specimen Site: Hand, right Specimen Blood - Hand, right Performing Organization Address [facility] Phone Number [facility] DEPARTMENT OF PATHOLOGY AND [address], [place] [address] [address] [address] Estimated GFR (09/12/2019 7:43 PM [facility] LIFT TRIMMER) Pathologist [facility] Estimated GFR 12 (A) mL/min/1.73 [facility] Comment: m2 [facility] Units Interpretation [facility] G1 >=90 Normal or high CENTER G2 60-89 Mildly decreased G3a 45-59 Mildly to moderately decreas ed G3b 30-44 Moderately to severely decre ased G4 15-29 Severely decreased G5 <15 Kidney failure The eGFR was calculated using the Chronic Kidney Disea se Epidemiology Collaboration (CKD-EPI) equation. Interpretation is based on recommendations of the National Kidney Foundation-Kidney Disease Outcomes López lity Initiative (NKF-KDOQI) published in 2014. Specimen Plasma specimen Performing Organization Address City/[facility] Phone Number DEPARTMENT OF PATHOLOGY AND [address] [place], [place] [id number] [place] [address] EMERGENCY [facility] Troponin, I-Stat (09/12/2019 7:43 PM [facility] L[facility] TRIMMER) Pathologist [facility] Troponin, I-Stat 0.01 0.00 - 0.08 [facility] Comment: ng/mL [place]EN CAMPBELL 0.09 - 1.49 ng/ml May indicate increa sed risk of acute EMERGENCY CARE coronary syndrome. HASKELL >=1.5 ng/ml Consistent with acute myocardial infarction. The diagnostic value of a single normal or non-diagnos tic result is questionable. Serial samples at 2-6 hour i ntervals are required to rule out acute myocardial injury. Specimen Plasma specimen Performing Organization Address City/State/Zipcode Phone Number DEPARTMENT OF PATHOLOGY AND [address] [place] [address] Lactic acid, I-Stat (09/12/2019 7:43 PM [facility] LIFT TRIMMER) [facility] Lactic acid, I-Stat 2.0 0.5 - 2.2 mmol/L [facility] Specimen Plasma specimen Performing Organization Address City/State/Zipcode Phone Number DEPARTMENT PATHOLOGY AND [address] [place], [place] [address] [address] Manual differential (09/12/2019 7:43 PM [facility] L[facility] TR[facility]MER) Pathologist [facility] Manual differential PERFORMED [facility] Neutrophils 69.0 39.0 - 69.0 % [facility] Lymphocytes 17.0 (L) 25.0 - 45.0 % [facility] Monocytes 14.0 (H) 0.0 - 10.0 % [facility] Eosinophils 0.0 0.0 - 5.0 % [facility] Basophils 0.0 0.0 - 1.0 % [facility] Metamyelocytes 0 % [facility] Promyelocytes 0 % [facility] Platelet slide review Cayla slt decr [facility] Anisocytosis Moderate [facility] Polychromasia Moderate [facility] Spherocytes Occasional [facility] Ovalocytes Moderate [facility] Specimen Performing Organization Address City/State/Zipcode Phone Number [facility] DEPARTMENT OF PATHOLOGY AND [address], [place] [address] GENOMIC MEDICINE [place] [id number] [place] [address] [facility] EMERGENCY [id number] [place] [id number] [place] [address] CBC with platelet and differential (09/12/2019 7:43 PM [facility]MER) [facility] Sig nature WBC 6.31 4.50 - 11.00 k/uL [facility] RBC 3.41 (L) 4.40 - 6.00 m/uL [facility] HGB 11.3 (L) 14.0 - 18.0 g/dL [facility] HCT 33.9 (L) 41.0 - 51.0 % [facility] MCV 99.4 82.0 - 100.0 fL [facility] MCH 33.1 27.0 - 34.0 pg [facility] MCHC 33.3 31.0 - 37.0 g/dL [facility] RDW - SD 45.9 37.0 - 55.0 fL [facility] MPV 8.0 (L) 8.8 - 13.2 fL [facility] Platelet count 133 (L) 150 - 400 k/uL [facility] Neutrophils 69.0 39.0 - 69.0 % [facility] Lymphocytes 17.0 (L) 25.0 - 45.0 % [facility] Monocytes 14.0 (H) 0.0 - 10.0 % [facility] Eosinophils 0.0 0.0 - 5.0 % [facility] Basophils 0.0 0.0 - 1.0 % [facility] Specimen Blood Performing Organization Address City/State/Zipcode Phone Number DEPARTMENT OF PATHOLOGY AND [address] [place], [place] [address] GENOMIC MEDICINE, [place] [address] EMERGENCY CARE CENTER Influenza antigen (09/12/2019 7:43 PM [employer] L[facility] TR[facility]MER) Influenza antigen Flue B: positive Flue A: negative [facility] Comment: [facility] Specimen [facility] Specimen Source: Nares Specimen Site: Left Specimen Nares - Left Performing Organization Address City/[facility] Phone Number DEPARTMENT OF PATHOLOGY AND [address] [place] [address] Venous blood gas (09/12/2019 7:43 PM [employer] LIFT TRIMMER) Pathologist Sig nature pH, venous, POC 7.52 (H) 7.32 - 7.42 [facility] pCO2, venous, POC 41 (L) 45 - 51 mm Hg [facility] pO2, venous, POC 32 25 - 40 mm Hg [facility] Base excess, venous, 9 (H) -2 - 2 mmol/L [facility] EMERGENCY [facility] Bicarbonate, venous, 32.9 (H) 21.0 - 28.0 [facility] mmol/L [facility] O2 saturation, 68 40 - 70 % [facility] venous, POC [facility] Specimen Blood Performing Organization Address [facility] Phone Number DEPARTMENT OF PATHOLOGY AND [address] [place] [address] [address] [place] [address] EMERGENCY CARE CENTER Bilirubin direct (09/12/2019 7:43 PM [facility] LIFT TRIMMER) Pathologist Sig nature Bilirubin direct 0.3 0.0 - 0.3 mg/dL [facility] Specimen Plasma specimen Performing Organization Address City/[facility]/Zipcode Phone Number DEPARTMENT OF PATHOLOGY AND [address] [place] [address] [address] [place] [address] EMERGENCY CARE CENTER Comprehensive metabolic panel (09/12/2019 7:43 PM [employer] LIFT TRIMMER) Pathologist Sig nature Sodium 135 128 - 145 mEq/L [facility] Potassium 4.9 3.6 - 5.1 mEq/L [facility] CO2 30 18 - 33 mEq/L [facility] Chloride 91 (L) 98 - 108 mEq/L [facility] Glucose 94 73 - 118 mg/dL [facility] Calcium 9.1 8.0 - 10.3 mg/dL [facility] BUN 29 (H) 7 - 22 mg/dL [facility] Creatinine 5.5 (H) 0.7 - 1.2 mg/dL [facility] Alkaline phosphatase 76 53 - 128 U/L [facility] ALT 38 10 - 47 U/L [facility] AST 45 (H) 11 - 38 U/L [facility] Total bilirubin 0.7 0.2 - 1.6 mg/dL [facility] Albumin 3.7 3.3 - 5.5 g/dL [facility] Protein 8.2 (H) 6.4 - 8.1 g/dL [facility] Anion gap 14@ANIO 7 - 15 mEq/L [facility] A/G ratio 0.8 0.7 - 3.8 [facility] Specimen Plasma specimen Performing Organization Address City/State/Zipcode Phone Number DEPARTMENT OF PATHOLOGY AND [address] [place] [address] [address] [address] EMERGENCY CARE CENTER ECG ED Preliminary Interpretation - Not an Order (09/12/2019 7:29 PM [facility] TRIMMER) Narrative Performed At Ty Nieves MD 09/13/2019 6:41 AM ECG ED Preliminary Interpretation - Not an Order Performed by: Ty Nieves MD Authorized by: Ty Nieves MD ECG reviewed by ED Physician in the abse nce of a marketing lead: yes Interpretation: Interpretation: non-specific Rate: ECG rate: 96 ECG rate assessment: normal Rhythm: Rhythm: sinus rhythm Ectopy: Ectopy: none QRS: QRS axis: Normal Conduction: Conduction: normal ST segments: ST segments: Normal T waves: T waves: peaked Peaked: V3, V4, V5, V6, II, III and aVF ECG 12 lead (09/12/2019 7:25 PM [employer] LIFT TRIMMER) Pathologist Sig nature Ventricular rate 96 [facility] Atrial rate 96 [facility] UT interval 182 [facility] QRSD interval 80 [facility] QT interval 364 [facility] QTC interval 459 [facility] P axis 1 41 [facility] QRS axis 1 72 [facility] T wave axis 80 [facility] EKG impression Normal sinus [facility] rhythm-Normal ECG-In automated comparison with ECG of 16-FEB-2015 10:01,-No significant change was found- Specimen Narrative Performed At This result has an attachment that is no t available. Performing Organization Address City/State/Zipcode Phone Number [facility] MUSE [address] [place] [address] after 02/25/2019 Insurance Payer Benefit Plan / Subscriber ID Effective Dates Phone Addre ss Type Group MEDICARE MEDICARE PART A xxxxxxxxxxx 2010-Present [place], [place] Medicare AND B [id number] 1 Advance Directives For more information, please contact: [phone] Type Date Recorded Patient Health Inspector Food Explanati on Advance Directives, Living Will and Medical Power of Manager Star
[2020-02-26 19:11] LABS: Absolute Lymphocytes (CBC) 1.3 K/uL (0.7-4.9); Basophils % 0.8 % (0-1.3); Hematocrit 43.1 % (39.6-49.0); Lymphocytes % 18.2 % (15.3-44.8); MPV 7.5 fL (7.6-11.3); RBC Red Blood Cell Count 4.48 M/uL (4.33-5.43)
[2020-02-26 19:29] LABS: Potassium 5.3 mmol/L (3.5-5.1)
--- OUTSIDE RECORDS SUMMARY | 2020-02-26 19:33 | XMS REPORT | Continuity of Care Document ---
:1955 Author Organization [facility] t Address [address] [place] [address] Care Team Providers Name Role Phone UNKNOWN, REFFERING Primary Care Physician Unavailable Ty Nieves MD Attending Clinician BRI CAMPBELL Attending Clinician Unavailable TROY SOLANO Attending Clinician Unavailable SANJUANA BREWER Attending Clinician Unavailable CHARI Attending Clinician Unavailable BHAVNA GERBER Attending Clinician Unavailable KAZ TURPIN Attending Clinician Unavailable EDENILSON ANTONIO Attending Clinician Unavailable Xavier HOLLOWAY Attending Clinician Unavailable ELIANA Attending Clinician Unavailable SHILA JAFFE MD, MDafneD. Attending Clinician Unavailable KAZ TURPIN Admitting Clinician Unavailable TROY SOLANO Admitting Clinician Unavailable SANJUANA BREWER Admitting Clinician Unavailable Xavier HOLLOWAY Admitting Clinician Unavailable ELIANA Admitting Clinician Unavailable SHILA JAFFE MD, MMalka., M Admitting Clinician Unavail able Payers Payer Name Policy Policy Number Effective Expiration Source Type Date Date MEDICAREMEDICARE A xxxxxxxxxxx CHARISMA Abraham BxxxxxxxxxxxMedicare - [facility] MEDICAREMEDICARE PART A xxxxxxxxxxx 2010 [place] AND 00:00:00 [facility] Bxxxxxxxxxxx2010-[place] Problems Condition Condition Condition Status Onset Resolution Last Treating Co mments Source Name Details Category Date Date Treatment Clinician Date Drug-induc Drug-induc Disease Active 2019-[address] ed ed 12-22 [facility] thrombocyt thrombocyt 00:00: Me dical openia openia 00 Center S/P S/P Disease Active [facility] R-thoracot R-thoracot - Khushbu kes - nilesh, nilesh, 00:00: Medical decort, decort, 00 Center 12/17 by 12/17 by Sam Vargas Recurrent Recurrent Disease Active 2017-[address] [facility] right right 2-12 [facility] - pleural pleural 00:00: Medical effusion effusion 00 Center Pleural Pleural Disease Active 2017-[address] [facility] effusion effusion - [facility] - 00:[facility]: Medical 00 Center Chronic Chronic Disease Active [facility] anticoagul anticoagul 05-28 Khushbu kes - ation ation 00:00: Medical 00 Center Scrotal Scrotal Disease Active [facility] edema edema 05-28 [facility] - 00[facility] 00 Center Groin Groin Disease Active [facility] abscess abscess 05-19 [facility] - 00:[facility] Medical 00 Center S/P MVR S/P MVR Disease Active [facility] (mitral (mitral 01-28 [facility] - valve valve 00:00: Medical replacemen replacemen 00 Ce nter t) t) Pulmonary Pulmonary Disease Active [facility] HTN HTN 01-28 [facility] - 00:[facility]: Medical 00 Center ESRD (end ESRD (end Disease Active [facility] stage stage 5- [facility] - renal renal 00:00: Medical disease) disease) 00 Center 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 - Khushbu kes - ciency ciency 00:00: Medical virus virus 00 Center infection) infection) DM II DM II Disease Active [facility] (diabetes (diabetes - Luke s - mellitus, mellitus, 00:00: Medi shakira type II), type II), 00 Cent er controlled controlled Paroxysmal Paroxysmal Disease Active [facility] atrial atrial - [facility] - fibrillati fibrillati 00:00: Me dical on on 00 Center Hepatic Hepatic Disease Active [facility] cirrhosis cirrhosis 4-03 [facility] - due to due to 00:00: Medical chronic chronic 00 Center hepatitis hepatitis C C infection infection HTN HTN Disease Active [facility] (hypertens (hypertens 3-19 Khushbu kes - ion) ion) 00:00: Medical 00 Center Allergies, Adverse Reactions, Alerts Allergy Allergy Status Severity Reaction(s) Onset Inactive Treating Comm ents Source Name Type Date Date Clinician Codeine Drug Active Other (See Pt denies [facility] Intolera Comments) 12-02 intoleran Khushbu kes - nce 00:00: ce to Medical 00 pain meds Center 12/18/18 Family History Family Member Diagnosis Comments Start Date Stop Date Source Natural father Diabetes [facility] Natural mother Heart disease [facility] Social History Social Habit Start Date Stop Date Quantity Comments Source History [facility] Meth odist Alcohol Std Drinks History [facility] Meth odist Alcohol Binge Sex Assigned At [facility] ethodist Alcohol intake 2019-09-12 2019-09-12 [facility] thodist 00:00:00 00:00:00 non-drinker (finding) History SDOH 2019-09-12 2019-09-12 1 [place] Meth odist Alcohol Frequency 00:00:00 00:00:00 Smoking Status Start Date Stop Date Source Never smoker [place] Method[facility] t Medications Ordered Filled Start Stop Current Ordering Indication Dosage Frequency Signature Comments Components Source Medication Medication Date Date Medication? Clinician (SIG) Name Name lamiVUDine Yes Q.5D Take by [place] (EPIVIR) 09-12 mouth 2 Metho di mg/mL 18:52: (two) st solution 25 times a day. sulfamethox 2019-0 Yes 1{tbl} Q.5D Take 1 [place] azole-trime 09-12 tablet by Met hodi thoprim 18:52: mouth 2 st (BACTRIM 25 (two) DS) 800-160 times a mg per day. tablet codeine-gua Yes acute pain 5mL Q.[id number] Take 5 mL [place] ifenesin 09-12 [id number] by mouth 3 Methodi (GUAIFENESI 18:52: 3D (three) st N AC) 25 times a 10-100 mg/5 day as mL liquid needed for cough .acute pain. clotrimazol 2019-0 Yes Q.5D Apply [place] e 09-12 topically Methodi (LOTRIMIN) 18:52: 2 (two) st 1 % cream 25 times a day. traMADol 2019-0 Yes acute pain 50mg Q6H Take 50 mg López (ULTRAM) 50 1-11 by mouth Meth lora mg tablet 18:52: every 6 st 24 (six) hours as needed for moderate pain .acute pain. ergocalcife 2020-0 Yes [id number] Q7D Take [place] rol 1-11 50,000 Methodi (VITAMIN 18:52: Units by st D2) 50,000 24 mouth once unit a week. capsule carvedilol 2020-0 Yes 12.5mg Q.5D Take 12.5 [facility] (COREG) 1-11 mg by Methodi 12.5 MG 18:52: mouth 2 st tablet 24 (two) times a day with meals. pantoprazol 2020-0 Yes 40mg QD Take 40 mg López e 1-11 by mouth Methodi (PROTONIX) 18:52: daily. st 40 MG EC 24 tablet warfarin 2020-0 Yes 10mg QD Take 10 mg [place] (COUMADIN) 1-11 by mouth Metho di 10 MG 18:52: daily. st tablet 24 Take 105mg on Saturday, , and Saturday and 1 tablet on all other days lopinavir-r 2020-0 Yes 2{tbl} Q.5D Take 2 [place] itonavir 1-11 tablets by Metho di (KALETRA) 18:52: mouth 2 st 200-50 mg 24 (two) per tablet times a day. prednisoLON 2020-0 Yes 1[drp] Q.25D 1 drop 4 López E sodium 1-11 (four) Methodi phosphate 1 18:52: times a st % 24 day. ophthalmic solution metFORMIN 2020-0 Yes 1000mg Q.5D Take 1,000 L[facility] (GLUCOPHAGE 1-11 mg by Methodi ) 1,000 mg 18:52: mouth 2 st tablet 23 (two) times a day with meals. raltegravir 2020-0 Yes 400mg Q.5D Take 400 [place] (ISENTRESS) 1-11 mg by Methodi 400 mg 18:52: mouth 2 st tablet 23 (two) times a day. oseltamivir 2020-0 Yes 30 mg [place] (TAMIFLU) 1-11 immediatel Meth lora 30 MG 00:00: y before st capsule 00 and 30 mg after dialysis. 3 dialysis days. ondansetron 2020-0 2020- No 4mg Q8H Take 1 [place] ODT 1-11 01-16 tablet (4 Methodi (ZOFRAN-ODT 00:00: 23:59 mg total) st ) 4 MG 00 :00 by mouth disintegrat every 8 ing tablet (eight) hours as needed for nausea or vomiting for up to 5 days. pantoprazol Yes 40mg QD Take [address] [facility] e 5-07 tablet (40 [facility] - (PROTONIX) 00:00: mg total) Me dical 40 MG 00 by mouth Center tablet daily. calcium 2019- No 667mg Take [address] [facility] acetate - 05-06 capsule [facility] - (PHOSLO) 00:00: 23:59 (667 mg Medic al 667 mg 00 :00 total) by Center capsule mouth 2 (two) times daily before meals. losartan 2019- No 50mg QD Take [address] [facility] (COZAAR) 50 01-06-06 tablet (50 L ukes - MG tablet 00:00: 23:59 mg total) Me dical 00 :00 by mouth Center daily. warfarin 2017-[address] [facility] (COUMADIN) 2- patient [facility] - 6 MG tablet 00:00: [facility] 00 ns for Center details, 12 mg on Saturday, Saturday and Saturday, and 11 mg on Saturday, , Saturday, Saturday. carvedilol 2017-09- No 12.5mg Q.5D Take [address] (COREG) 2- 12-19 tablet [facility] - 12.5 MG 00:00: 23:59 (12.5 mg Medic al tablet 00 :00 total) by Center mouth 2 (two) times daily No more refills through my office. lamiVUDine 2019- No 25mg QD Take 2.[address] (EPIVIR) 10 05-29 09-27 mLs (25 mg L ukes - mg/mL 00:00: 23:59 total) by Medica l solution 00 :00 mouth Center daily. atorvastati Yes 20mg QD Take [address] n (LIPITOR) 9-17 by mouth Luke s - 20 MG 17:54: daily. Medical tablet 47 Center ergocalcife Yes [id number] Q7D Take [facility] rol 9- 50,000 [facility] - (VITAMIN 17:54: Units by Medic al D2) 50,[address] unit a week. capsule aspirin 81 Yes 81mg QD Take [address] MG EC 6-24 by mouth [facility] - tablet 22:06: daily. Medical 28 Center cholecalcif Yes Take by [facility] gavin, 4-02 mouth. [facility] - vitamin D3, 08:57: Medica l 2,000 unit 54 Center Cap lopinavir-r Yes 2{tbl} Q.5D Take [address] itonavir 4-02 tablets by [facility] - (KALETRA) 08:57: mouth 2 Medic al 200-50 mg 54 (two) Center per tablet times daily. raltegravir Yes 400mg Q.5D Take [address] (ISENTRESS) 4-02 mg by [facility] - 400 mg 08:57: mouth 2 Medical tablet 54 (two) Center times daily. multivitami Yes 1{tbl} QD Take [address] n with 4-02 tablet by [facility] - minerals 08:57: mouth Medical tablet 53 daily. Center Vital Signs Vital Name Observation Time Observation Value Comments Source Systolic blood 2019-09-12 21:52:03 155 mm[Hg] Luisto n [facility] pressure Diastolic blood 2019-09-12 21:52:03 80 mm[Hg] Bert on [facility] pressure Heart rate 2019-09-12 21:52:03 104 /min Rene Wilson Body temperature 2019-09-12 21:52:03 38.44 Marjorie [place] ton [facility] Respiratory rate 2019-09-12 21:52:03 16 /min Luis ton [facility] Oxygen saturation in 2019-09-12 21:52:03 97 /min Rene Wilson Arterial blood by Pulse oximetry Body height 2019-09-12 18:46:00 170.2 cm Rene Wilson Body weight 2019-09-12 18:46:00 72.576 kg Rene Wilson BMI 2019-09-12 18:46:00 25.06 kg/m2 Rene Wilson Procedures Procedure Date / Time Performing Clinician Source Performed CT ABDOMEN PELVIS WO 2019-09-12 20:46:00 Ty Nieves CONTRAST XR CHEST 2 VW 2019-09-12 20:44:31 Ty Nievesist BLOOD CULTURE, AEROBIC & 2019-09-12 20:01:00 Ty Nieves ANAEROBIC INFLUENZA ANTIGEN 2019-09-12 19:43:00 Ty Nieves [facility] BLOOD CULTURE, AEROBIC & 2019-09-12 19:43:00 Ty Nieves ANAEROBIC CBC WITH PLATELET AND 2019-09-12 19:43:00 Ty Nieves [place] [facility] DIFFERENTIAL LACTIC ACID, I-STAT 2019-09-12 19:43:00 Ty Nieves TROPONIN, I-STAT 2019-09-12 19:43:00 Ty Nieves VENOUS BLOOD GAS 2019-09-12 19:43:00 Ty Nieves ESTIMATED GFR 2019-09-12 19:43:00 Ty Nieves COMPREHENSIVE METABOLIC 2019-09-12 19:43:00 Ty Nieves PANEL BILIRUBIN DIRECT 2019-09-12 19:43:00 Ty Nieves MANUAL DIFFERENTIAL 2019-09-12 19:43:00 Ty Nieves ECG ED PRELIMINARY 2019-09-12 19:29:23 Ty Nieves INTERPRETATION ECG 12-LEAD 2019-09-12 19:25:17 Ty Nieves [id number] 2019-01-08 00:00:00 ENCPL [id number] 2019-01-08 00:00:00 ENCPL [id number] 2019-01-08 00:00:00 ENCPL [id number] 2019-01-08 00:00:00 ENCPL Plan of Care Planned Activity Planned Date Details Comments Source Future Scheduled 2020-05-[address] [facility] Test 00:00:00 (Season Ended) [code = [facility] INFLUENZA VACCINE (Season Ended)] Future Scheduled 2020-04-02 INFLUENZA VACCINE Damaris barahona [facility] Test 00:00:00 [code = INFLUENZA VACCINE] Future Scheduled 2020-01-05 COLON CANCER SCREENING [facility] - Test 00:00:00 ANNUAL FOBT [code = Medical Center COLON CANCER SCREENING ANNUAL FOBT] Future Scheduled 2019-06-17 HEMOGLOBIN A1C [code = [facility] - Test 00:00:00 HEMOGLOBIN A1C] Medical Cent er Future Scheduled 2011-05-[address] [facility] - Test 00:00:00 WELLNESS (YEAR 2 or Medical Center FIRST YEAR if no IPPE) [code = MEDICARE ANNUAL WELLNESS (YEAR 2 or FIRST YEAR if no IPPE)] Future Scheduled 2007-04-24 COLONOSCOPY SCREENING [place] [facility] Test 00:00:00 [code = COLONOSCOPY SCREENING] Future Scheduled 2007-04-24 SHINGLES VACCINES (#1) [place] [facility] Test 00:00:00 [code = SHINGLES VACCINES (#1)] Future Scheduled 1967-04-24 DIABETIC FOOT EXAM [place] [facility] Test 00:00:00 [code = DIABETIC FOOT EXAM] Future Scheduled 1967 DIABETIC EYE EXAM [facility] - Test 00:00:00 [code = DIABETIC EYE Medical Center EXAM] Future Scheduled [address] [facility] - Test 00:00:00 examination Medical Center (regime/therapy) [code = 535624381] Future Scheduled [address] [facility] - Test 00:00:00 2-64 YEARS AT RISK (1 Medica l Center of 3 - PCV13) [code = PNEUMOCOCCAL VACCINE 2-64 YEARS AT RISK (1 of 3 - PCV13)] Future Scheduled 1955 DIABETIC RETINAL EYE [place] [facility] Test 00:00:00 EXAM [code = DIABETIC RETINAL EYE EXAM] Encounters Start End Encounter Admission Attending Care Care Encounter Source Date/Time Date/Time Type Type Clinicians Facility Department ID 2019-11-09 2019-11-09 Outpatient [facility] MED [id number] [facility] 08:51:00 08:51:00 2019-09-12 2019-09-12 Emergency NIEVES, [facility] 064 [id number] [place] 00:00:00 00:00:00 TY Lewis [facility] 2017-11-18 2017-11-20 Inpatient Carine HOLLOWAY [facility] MED [id number] [facility] 13:43:00 13:54:00 [facility] 2017-11-07 2017-11-07 Emergency E [facility] MED [id number] [facility] 20:22:00 20:22:00 [facility] 2017-10-06 2017-10-06 Emergency E ELIANA, [facility] MED [id number] [facility] 14:25:00 14:25:00 [facility] Results Test Description Test Time Test Comments Results Result Comments Source Blood culture, aerobic & anaerobic 2019-09-18 01:33:06 Test Item Value Reference Range Interpretation Comme nts Blood culture isolate No growth after 5 days of Specimen InformationSpecimen (test code = 600-7) incubation. Source: BloodSpecimen Site: Hand, right [place] [facility] [id number] 21:54:59 Test Item Value Reference Range Interpretation Comments Ventricular rate (test 96 code = 253) Atrial rate (test code 96 = 255) RI interval (test code 182 = 266) QRSD interval (test 80 code = 260) QT interval (test code 364 = 264) QTC interval (test code 459 = 265) P axis 1 (test code = 41 267) QRS axis 1 (test code = 72 268) T wave axis (test code 80 = 270) EKG impression (test Normal sinus code = 273) rhythm-Normal ECG-In automated comparison with ECG of 16-FEB-2015 10:01,-No significant change was found- STUS [facility] with platelet and [id number] 06:24:24 Test Item Value Reference Range Interpretation Comments WBC (test code = 74334-0) 6.31 4.50- 11.00 k/uL RBC (test code = 63981-0) 3.41 m/uL 4.4-6 L HGB (test code = 718-7) 11.3 g/dL 14-18 L HCT (test code = 4544-3) 33.9 % 41-51 L MCV (test code = 787-2) 99.4 fL 82-100 MCH (test code = 785-6) 33.1 pg 27-34 MCHC (test code = 786-4) 33.3 g/dL 31-37 RDW - SD (test code = 00415-8) 45.9 fL 37-55 MPV (test code = 49556-5) 8.0 fL 8.8-13.2 L Platelet count (test code = 133 150- 400 k/uL L 26161-8) Neutrophils (test code = 23393-0) 69.0 % 39-69 Lymphocytes (test code = 13124-7) 17.0 % 25-45 L Monocytes (test code = 22469-7) 14.0 % 0-10 H Eosinophils (test code = 64895-7) 0.0 % 0-5 Basophils (test code = 79864-9) 0.0 % 0-1 Lab Interpretation (test code = Abnormal 15655-5) [place] MethodistManual [id number] 04:04:40 Test Item Value Reference Range Interpretation Comments Manual differential (test code = PERFORMED 86986-6) Neutrophils (test code = 69.0 % 39-69 61055-7) Lymphocytes (test code = 17.0 % 25-45 L 95656-4) Monocytes (test code = 39982-2) 14.0 % 0-10 H Eosinophils (test code = 0.0 % 0-5 79566-5) Basophils (test code = 90184-7) 0.0 % 0-1 Metamyelocytes (test code = 0 % 740-1) Promyelocytes (test code = 0 % 783-1) Platelet slide review (test code Cayla slt decr = 76267-3) Anisocytosis (test code = 702-1) Moderate Polychromasia (test code = Moderate 36333-2) Spherocytes (test code = 802-9) Occasional Ovalocytes (test code = 774-0) Moderate Lab Interpretation (test code = Abnormal 39063-0) [place] MethodistComprehensive metabolic [id number] 21:52:24 Test Item Value Reference Range Interpretation Comments Sodium (test code = 2951-2) 135 128- 145 mEq/L Potassium (test code = 2823-3) 4.9 3.6- 5.1 mEq/L CO2 (test code = 2027-9) 30 18- 33 mEq/L Chloride (test code = 2075-0) 91 98- 108 mEq/L L Glucose (test code = 2345-7) 94 mg/dL 73-118 Calcium (test code = 55939-0) 9.1 mg/dL 8-10.3 BUN (test code = 3094-0) 29 mg/dL 7-22 H Creatinine (test code = 2160-0) 5.5 mg/dL 0.7-1.2 H Alkaline phosphatase (test code = 76 U/L 53-128 6768-6) ALT (test code = 1742-6) 38 U/L 10-47 AST (test code = 1920-8) 45 U/L 11-38 H Total bilirubin (test code = 0.7 mg/dL 0.2-1.6 1974-) Albumin (test code = 1751-7) 3.7 g/dL 3.3-5.5 Protein (test code = 2885-2) 8.2 g/dL 6.4-8.1 H Anion gap (test code = 88019-9) 14@ANIO 7- 15 mEq/L A/G ratio (test code = 1759-0) 0.8 0.7-3.8 Lab Interpretation (test code = Abnormal 52448-3) Rene MethodistBilirubin [id number] 21:52:24 Test Item Value Reference Range Interpretation Comments Bilirubin direct (test code = 0.3 mg/dL 0-0.3 1968-03) López MethodistEstimated [id number] 21:52:24 Test Item Value Reference Range Interpretation Comments Estimated GFR (test 12 mL/min/1.73 m2 Ev Moniejarred ebonyjessee Units code = 5488) InterpretationG 1 >=90 Jazmine l or highG2 60-89 Mildly decrease dG3a 45-59 Mil dly to moderately decr idlxxC0j 30-44 Moderately to s everely decreasedG4 15-29 Severe ly decreasedG5 <15 Kidney blanco lureThe eGFR was calcul ated using the Chron ic Kidney Disease Epidemiology Collaboration ( CKD-EPI) equation. Interpretation is based on recommendati ons of the National Ki dney Foundation-Kidn ey Disease Outcome s Quality Initiat samreen (NKF-KDOQI) pub lished in 2013. Lab Interpretation Abnormal (test code = 62586-0) Rene MethodistCT Abdomen Pelvis Wo [id number] 20:53:43Hm Interface, Radiology Results - 09/12/2019 8:56 PM CSTEXAMINATION: CT ABDOMEN PELVIS WOCONTRASTCLINICAL HISTORY: 64 years Male abd pain n vTECHNIQUE: Multiple axial images of the abdomenand pelvis were obtained without intravenous administration of iodinated contrast. Sagittal and coronal computerized reformatted images were also obtained. CT imaging was performed with iterative reconstruction techniques and/or automated exposure control to reduce radiation dose. The lack of intravenous contrast reduces the sensitivity of detecting solid organ disease. COMPARISON: None.IMPRESSION:Lung bases: Heart is enlarged with small right pleural effusion/pleural thickening and basilar volume l oss.Liver: Unenhanced liver is unremarkable. No focal mass.Gallbladder/Biliary: There are small calcified stones in the dependent portion of the gallbladder. There is no gallbladder distention or biliary duct dilation.Spleen: Spleen is mildly enlarged measuring 14 cm in length.Pancreas: Pancreas is mildly atrophic.Adrenal Glands: The adrenal glands are unremarkable.Kidneys: Kidneys are moderately atrophic without hydronephrosis or nephrolithiasis.Vascular: Scattered aortoiliac atherosclerotic calcification present without aneurysm.Nodes: Nonspecific portacaval node present measuring up to 1.3 x 2.7cm. Multiple small retroperitoneal nodes also present with left para-aortic nodes measuring up to 1 cm in short axis. Small pelvic sidewall nodes are present with external iliac node measuring up to 1 cm and diameter.Bowel: No evidence of intestinal obstruction or inflammation. The appendix is normal.Ascites/fluid collections: No ascites or fluid collections.Genitourinary: Bladder is unremarkable. Prostate is not enlarged.Bones/soft tissues: Bones are mildly demineralized. No suspicious osseous lesion noted. Postsurgical changes likely secondary to vascular intervention noted in the right and left g roin.SUMMARY:1.Cardiomegaly with small right pleural effusion/pleural thickening and basilar volume loss.2.Cholelithiasis.3.Mild splenomegaly.4.Nonspecific periportal nodes and smaller retroperitoneal nodes.5.Atrophic pancreas and kidneys.6.No intestinal obstruction or evidence of inflammation.Rene Anderson [id number] 20:46:29 Test Item Value Reference Range Interpretation Comments Troponin, I-Stat 0.01 ng/mL 0-0.08 0.09 - 1.49 ng/ml (test code = 2359) May indic ate increased risk of acute coronary syndro me. >=1.5 ng/ml Consistent with acute myocardial infar ction. The diagnostic valu e of a single normal o r non-diagnostic result is questionable. Serial samples at 2-6 hour intervalsare re quired to rule out acute myocardial injury. [place] MethodistXR Chest 2 [id number] 20:46:25Hm Interface, Radiology Results 09/12/2019 8:49 PM CSTEXAMINATION: XR CHEST 2 VWCLINICAL HISTORY: sobCOMPARISON: NoneIMPRESSION:Status post median sternotomy and valvular surgery. Atrial clip present. There is mild cardiomegaly. There is mild central vascular congestion. There is small right pleural effusion with volume loss in the right base. Lungs are otherwise clear. There is no pneumothorax. Visualized osseous structures are intact. [facility]-[id number] MethodistVenous blood gas 2019-09-12 20:39:32 Test Item Value Reference Range Interpretation Comments pH, venous, POC (test code = 7.52 7.32-7.42 H 2746-6) pCO2, venous, POC (test code = 41 45- 51 mm Hg L 2020-4) pO2, venous, POC (test code = 32 25- 40 mm Hg 2705-2) Base excess, venous, POC (test 9 mmol/L -2-2 H code = 1927-3) Bicarbonate, venous, POC (test 32.9 mmol/L 21-28 H code = 13381-8) O2 saturation, venous, POC (test 68 % 40-70 code = 2711-0) Lab Interpretation (test code = Abnormal 12109-7) [place] MethodistLactic acid, [id number] 20:37:11 Test Item Value Reference Range Interpretation Comments Lactic acid, I-Stat (test code = 2.0 mmol/L 0.5-2.2 63614-9) [place] MethodistInfluenza [id number] 20:05:58 Test Item Value Reference Range Interpretation Comments Influenza Flue B: Specimen antigen (test positive InformationSpe [facility] = 1604) Flue A: Source: NaresSp ecimen negative Site: Left [place] MethodistECG ED Preliminary Interpretation - Not an [id number] 19:29:23Ty Nieves MD 09/13/2019 6:41 AMECG ED Preliminary Interpretation - Not an OrderPerformed by: Ty Nieves MDAuthorized by: Ty Nieves MD ECG reviewed by ED Physician in the absence of a hr director: yes Interpretation: Interpretation: non-specific Rate: ECG r ate: 96 ECG rate assessment: normal Rhythm: Rhythm: sinus rhythm Ectopy: Ectopy: none QRS: QRS axis: NormalConduction: Conduction: normal ST segments: ST segments: NormalT waves: T waves: peaked Peaked: V3, V4, V5, V6, II, III and aVFHouston MethodistAFB CULTURE + [id number] 07:33:00 Test Item Value Reference Range Interpretation Comments CULTURE ([facility]) (test No acid-fast bacilli code = 1095) isolated in 42 days AFB SMEAR ([facility]) No acid fast bacilli (test code = 994) seen FUNGUS CULTURE + [id number] 17:26:00 Test Item Value Reference Range Interpretation Comments CULTURE ([facility]) (test No fungus isolated in code = 1095) 28 days FUNGUS SMEAR ([facility]) No fungi seen (test code = 1406) POCT-GLUCOSE [id number] 13:35:00 Test Item Value Reference Range Interpretation Comments POC-GLUCOSE METER 116 mg/dL 70-110 H TESTED AT [facility] 67 ([facility]) (test code = [facility] 1538) [id number] POCT-GLUCOSE [id number] 08:54:00 Test Item Value Reference Range Interpretation Comments POC-GLUCOSE METER 99 mg/dL 70-110 TESTED AT [place] [address] ([facility]) (test code = [facility] [address] 1538) [id number] 06:34:00 Test Item Value Reference Range Interpretation Comments PARTIAL THROMBOPLASTIN TIME 46.7 seconds 22.5-36.0 H ([facility]) (test code = 760) While on warfarin.PROTHROMBIN TIME/[id number] 06:33:00 Test Item Value Reference Range Interpretation Comments PROTIME ([facility] [facility]) (test code = 26.5 seconds 11.7-14.7 H 759) INR ([facility]) (test code = 370) 2.6 <=5.9 RECOMMENDED COUMADIN/WARFARIN INR THERAPY RANGESSTANDARD DOSE: 2.0 - 3.0 Includes: PROPHYLAXIS forvenous thrombosis, systemic embolization; TREATMENT for venous thrombosis and/or pulmonary embolus.HIGH RISK: Target INR is 2.5-3.5 for patients with mechanical heart valves.While on warfarin.BASIC METABOLIC PANEL 2019-01-06 06:30:00 Test Item Value Reference Range Interpretation Comments SODIUM (BEAKER) 132 meq/L 136-145 L (test code = 381) POTASSIUM (BEAKER) 4.7 meq/L 3.5-5.1 (test code = 379) CHLORIDE (BEAKER) 96 meq/L 98-107 L (test code = 382) CO2 (BEAKER) (test 27 meq/L 22-29 code = 355) BLOOD UREA NITROGEN 59 mg/dL 7-21 H (BEAKER) (test code = 354) CREATININE (BEAKER) 6.00 mg/dL 0.57-1.25 H (test code = 358) GLUCOSE RANDOM 118 mg/dL 70-105 H (BEAKER) (test code = 652) CALCIUM (BEAKER) 9.5 mg/dL 8.4-10.2 (test code = 697) EGFR (BEAKER) (test 12 mL/min/1.73 ESTIMA JAYLA GFR IS code = 1092) sq m NOT ACCURATE CREATININE CLEARANCE IN PREDICTING GLOMERULAR FILTRATION RATE . ESTIMATED GFR I S NOT APPLICABLE FOR DIALYSIS PATIEN TS. CBC (HEMOGRAM ONLY)2019-01-06 06:09:00 Test Item Value Reference Range Interpretation Comments WHITE BLOOD CELL COUNT (BEAKER) 9.4 K/ L 3.5-10.5 (test code = 775) RED BLOOD CELL COUNT (BEAKER) 2.60 M/ L 4.63-6.08 L (test code = 761) HEMOGLOBIN (BEAKER) (test code = 8.5 GM/DL 13.7-17.5 L 410) HEMATOCRIT (BEAKER) (test code = 27.6 % 40.1-51.0 L 411) MEAN CORPUSCULAR VOLUME (BEAKER) 106.2 fL 79.0-92.2 H (test code = 753) MEAN CORPUSCULAR HEMOGLOBIN 32.7 pg 25.7-32.2 H (BEAKER) (test code = 751) MEAN CORPUSCULAR HEMOGLOBIN CONC 30.8 GM/DL 32.3-36.5 L (BEAKER) (test code = 752) RED CELL DISTRIBUTION WIDTH 17.9 % 11.6-14.4 H ([facility]) (test code = 412) PLATELET COUNT ([facility]) (test 148 K/CU MM 150-450 L code = 756) MEAN PLATELET VOLUME ([facility]) 9.2 fL 9.4-12.4 L (test code = 754) NUCLEATED RED BLOOD CELLS 1 /100 WBC 0-0 H ([facility]) (test code = 413) POCT-GLUCOSE [id number] 21:38:00 Test Item Value Reference Range Interpretation Comments POC-GLUCOSE METER 192 mg/dL 70-110 H TESTED AT [place] [address] ([facility]) (test code = [facility] 1538) [id number] POCT-GLUCOSE [id number] 13:01:00 Test Item Value Reference Range Interpretation Comments POC-GLUCOSE METER 200 mg/dL 70-110 H TESTED AT [place] [address] ([facility]) (test code = [facility] 1538) [id number] POCT-GLUCOSE [id number] 08:00:00 Test Item Value Reference Range Interpretation Comments POC-GLUCOSE METER 123 mg/dL 70-110 H TESTED AT [place] [address] ([facility]) (test code = [facility] 1538) [id number] 06:40:00 Test Item Value Reference Range Interpretation Comments PARTIAL THROMBOPLASTIN TIME 83.1 seconds 22.5-36.0 H ([facility]) (test code = 760) [id number] 05:54:00 Test Item Value Reference Range Interpretation Comments PARTIAL THROMBOPLASTIN TIME > seconds 22.5-36.0 HH ([facility]) (test code = 760) PROTHROMBIN [id number] 05:30:00 Test Item Value Reference Range Interpretation Comments PROTIME ([facility]) (test code = 24.1 seconds 11.7-14.7 H 759) INR ([facility]) (test code = 370) 2.3 <=5.9 RECOMMENDED COUMADIN/WARFARIN INR THERAPY RANGESSTANDARD DOSE: 2.0 - 3.0 Includes: PROPHYLAXIS forvenous thrombosis, systemic embolization; TREATMENT for venous thrombosis and/or pulmonary embolus.HIGH RISK: Target INR is 2.5-3.5 for patients with mechanical heart valves.While on warfarin.CBC (HEMOGRAM ONLY) 2019-01-05 05:15:00 Test Item Value Reference Range Interpretation Comments WHITE BLOOD CELL COUNT (BEAKER) 9.4 K/ L 3.5-10.5 (test code = 775) RED BLOOD CELL COUNT (BEAKER) 2.54 M/ L 4.63-6.08 L (test code = 761) HEMOGLOBIN (BEAKER) (test code = 8.2 GM/DL 13.7-17.5 L 410) HEMATOCRIT (BEAKER) (test code = 27.1 % 40.1-51.0 L 411) MEAN CORPUSCULAR VOLUME (BEAKER) 106.7 fL 79.0-92.2 H (test code = 753) MEAN CORPUSCULAR HEMOGLOBIN 32.3 pg 25.7-32.2 H (BEAKER) (test code = 751) MEAN CORPUSCULAR HEMOGLOBIN CONC 30.3 GM/DL 32.3-36.5 L (BEAKER) (test code = 752) RED CELL DISTRIBUTION WIDTH 17.3 % 11.6-14.4 H (BEAKER) (test code = 412) PLATELET COUNT (BEAKER) (test 151 K/CU MM 150-450 code = 756) MEAN PLATELET VOLUME (BEAKER) 8.9 fL 9.4-12.4 L (test code = 754) NUCLEATED RED BLOOD CELLS 1 /100 WBC 0-0 H (BEAKER) (test code = 413) BASIC METABOLIC [id number] 05:10:00 Test Item Value Reference Range Interpretation Comments SODIUM (BEAKER) 134 meq/L 136-145 L (test code = 381) POTASSIUM (BEAKER) 4.0 meq/L 3.5-5.1 (test code = 379) CHLORIDE (BEAKER) 97 meq/L 98-107 L (test code = 382) CO2 (BEAKER) (test 29 meq/L 22-29 code = 355) BLOOD UREA NITROGEN 41 mg/dL 7-21 H (BEAKER) (test code = 354) CREATININE (BEAKER) 4.78 mg/dL 0.57-1.25 H (test code = 358) GLUCOSE RANDOM 185 mg/dL 70-105 H (BEAKER) (test code = 652) CALCIUM (BEAKER) 9.3 mg/dL 8.4-10.2 (test code = 697) EGFR (BEZOILA) (test 15 mL/min/1.73 ESTIMA JAYLA GFR IS code = 1092) sq m NOT ACCURATE CREATININE CLEARANCE IN PREDICTING GLOMERULAR FILTRATION RATE . ESTIMATED GFR I S NOT APPLICABLE FOR DIALYSIS PATIEN TS. OCCULT BLOOD, [id number] 23:46:00 Test Item Value Reference Range Interpretation Comments FECAL OCCULT BLOOD ([facility]) (test Negative Negative code = 618) POCT-GLUCOSE [id number] 22:52:00 Test Item Value Reference Range Interpretation Comments POC-GLUCOSE METER 192 mg/dL 70-110 H TESTED AT [place] [address] ([facility]) (test code = [facility] 1538) [id number] POCT-GLUCOSE [id number] 17:11:00 Test Item Value Reference Range Interpretation Comments POC-GLUCOSE METER 149 mg/dL 70-110 H TESTED AT [place] [address] ([facility]) (test code = [facility] 1538) [id number] PROTHROMBIN [id number] 13:00:00 Test Item Value Reference Range Interpretation Comments PROTIME ([facility]) (test code = 19.9 seconds 11.7-14.7 H 759) INR ([facility]) (test code = 370) 1.8 <=5.9 RECOMMENDED COUMADIN/WARFARIN INR THERAPY RANGESSTANDARD DOSE: 2.0 - 3.0 Includes: PROPHYLAXIS forvenous thrombosis, systemic embolization; TREATMENT for venous thrombosis and/or pulmonary embolus.HIGH RISK: Target INR is 2.5-3.5 for patients with mechanical heart valves.While on warfarin.POCT-GLUCOSE METER 2019-01-04 12:14:00 Test Item Value Reference Range Interpretation Comments POC-GLUCOSE METER 134 mg/dL 70-110 H TESTED AT [place] [address] ([facility]) (test code = [facility] 1538) [id number] RAD, CHEST, 1 VIEW, NON [id number] 08:02:00Reason for exam:->Post opShould this be performed [...] Verified Date/Time: 01/04/2019 08:02:18 Reading Location: [address] Consult Reading Room Electronicallysigned by: EDENILSON LBOOM M.D. on 01/04/2019 08:02 AMPOCT-GLUCOSE [id number] 07:42:00 Test Item Value Reference Range Interpretation Comments POC-GLUCOSE METER 98 mg/dL 70-110 TESTED AT [facility] 6720 (BEAKER) (test code = [facility] [address] 1538) BASIC METABOLIC [id number] 07:28:00 Test Item Value Reference Range Interpretation Comments SODIUM (BEAKER) 136 meq/L 136-145 (test code = 381) POTASSIUM (BEAKER) 4.1 meq/L 3.5-5.1 (test code = 379) CHLORIDE (BEAKER) 98 meq/L 98-107 (test code = 382) CO2 (BEAKER) (test 29 meq/L 22-29 code = 355) BLOOD UREA NITROGEN 21 mg/dL 7-21 (BEAKER) (test code = 354) CREATININE (BEAKER) 3.10 mg/dL 0.57-1.25 H (test code = 358) GLUCOSE RANDOM 101 mg/dL 70-105 (BEAKER) (test code = 652) CALCIUM (BEAKER) 9.4 mg/dL 8.4-10.2 (test code = 697) EGFR (BEAKER) (test 25 mL/min/1.73 ESTIMA JAYLA GFR IS code = 1092) sq m NOT ACCURATE CREATININE CLEARANCE IN PREDICTING GLOMERULAR FILTRATION RATE . ESTIMATED GFR I S NOT APPLICABLE FOR DIALYSIS PATIEN TS. CBC (HEMOGRAM ONLY)2019-01-04 07:07:00 Test Item Value Reference Range Interpretation Comments WHITE BLOOD CELL COUNT (BEAKER) 10.6 K/ L 3.5-10.5 H (test code = 775) RED BLOOD CELL COUNT (BEAKER) 2.69 M/ L 4.63-6.08 L (test code = 761) HEMOGLOBIN (BEAKER) (test code = 8.7 GM/DL 13.7-17.5 L 410) HEMATOCRIT (BEAKER) (test code = 28.4 % 40.1-51.0 L 411) MEAN CORPUSCULAR VOLUME (BEAKER) 105.6 fL 79.0-92.2 H (test code = 753) MEAN CORPUSCULAR HEMOGLOBIN 32.3 pg 25.7-32.2 H (BEAKER) (test code = 751) MEAN CORPUSCULAR HEMOGLOBIN CONC 30.6 GM/DL 32.3-36.5 L (BEAKER) (test code = 752) RED CELL DISTRIBUTION WIDTH 17.2 % 11.6-14.4 H (BEAKER) (test code = 412) PLATELET COUNT (BEAKER) (test 170 K/CU MM 150-450 code = 756) MEAN PLATELET VOLUME (BEAKER) 9.1 fL 9.4-12.4 L (test code = 754) NUCLEATED RED BLOOD CELLS 1 /100 WBC 0-0 H (BEAKER) (test code = 413) [id number] 06:08:00 Test Item Value Reference Range Interpretation Comments PARTIAL THROMBOPLASTIN TIME 70.6 seconds 22.5-36.0 H (BEAKER) (test code = 760) [id number] 23:32:00 Test Item Value Reference Range Interpretation Comments PARTIAL THROMBOPLASTIN TIME 77.2 seconds 22.5-36.0 H (AKER) (test code = 760) POCT-GLUCOSE [id number] 21:55:00 Test Item Value Reference Range Interpretation Comments POC-GLUCOSE METER 150 mg/dL 70-110 H TESTED AT [facility] 6720 ([facility]) (test code = [facility] [facility] 1538) [id number] 18:25:00 Test Item Value Reference Range Interpretation Comments PARTIAL THROMBOPLASTIN TIME 71.2 seconds 22.5-36.0 H ([facility]) (test code = 760) POCT-GLUCOSE [id number] 13:45:00 Test Item Value Reference Range Interpretation Comments POC-GLUCOSE METER 375 mg/dL 70-110 H Notified R Toy PÉREZ/TESTED ([facility]) (test code = AT [facility] [address]TON[address] [facility]8) [facility] [address] [id number] 10:26:00 Test Item Value Reference Range Interpretation Comments PARTIAL THROMBOPLASTIN TIME 94.0 seconds 22.5-36.0 H ([facility]) (test code = 760) While on warfarin.PROTHROMBIN TIME/[id number] 10:24:00 Test Item Value Reference Range Interpretation Comments PROTIME ([facility]) (test code = 19.3 seconds 11.7-14.7 H 759) INR ([facility]) (test code = 370) 1.7 <=5.9 RECOMMENDED COUMADIN/WARFARIN INR THERAPY RANGESSTANDARD DOSE: 2.0 - 3.0 Includes: PROPHYLAXIS forvenous thrombosis, systemic embolization; TREATMENT for venous thrombosis and/or pulmonary embolus.HIGH RISK: Target INR is 2.5-3.5 for patients with mechanical heart valves.While on warfarin.POCT-GLUCOSE METER 2019-01-03 08:36:00 Test Item Value Reference Range Interpretation Comments POC-GLUCOSE METER 124 mg/dL 70-110 H TESTED AT [facility] 6720 (JARROD) (test code = [place] 1538) [address] RAD, CHEST, 1 VIEW, NON [id number] 08:19:00Reason for exam:->Post opShould this be performed [...] contours. Additional findings: None. Signed: Radha Lisa MDReport Verified Date/Time: 01/03/2019 08:19:51 Reading Location: [address] Neuro Reading Room [id number] 03:31:00 Test Item Value Reference Range Interpretation Comments PARTIAL THROMBOPLASTIN TIME 64.2 seconds 22.5-36.0 H ([facility]) (test code = 760) BASIC METABOLIC [id number] 03:21:00 Test Item Value Reference Range Interpretation Comments SODIUM (BEAKER) 132 meq/L 136-145 L (test code = 381) POTASSIUM (BEAKER) 3.9 meq/L 3.5-5.1 (test code = 379) CHLORIDE (BEAKER) 95 meq/L 98-107 L (test code = 382) CO2 (BEAKER) (test 28 meq/L 22-29 code = 355) BLOOD UREA NITROGEN 37 mg/dL 7-21 H (BEAKER) (test code = 354) CREATININE (BEAKER) 4.74 mg/dL 0.57-1.25 H (test code = 358) GLUCOSE RANDOM 125 mg/dL 70-105 H (BEAKER) (test code = 652) CALCIUM (BEAKER) 9.2 mg/dL 8.4-10.2 (test code = 697) EGFR (BEAKER) (test 15 mL/min/1.73 ESTIMA JAYLA GFR IS code = 1092) sq m NOT ACCURATE CREATININE CLEARANCE IN PREDICTING GLOMERULAR FILTRATION RATE . ESTIMATED GFR I S NOT APPLICABLE FOR DIALYSIS PATIEN TS. CBC (HEMOGRAM ONLY)2019-01-03 02:58:00 Test Item Value Reference Range Interpretation Comments WHITE BLOOD CELL COUNT (BEAKER) 10.8 K/ L 3.5-10.5 H (test code = 775) RED BLOOD CELL COUNT (BEAKER) 2.61 M/ L 4.63-6.08 L (test code = 761) HEMOGLOBIN (BEAKER) (test code = 8.2 GM/DL 13.7-17.5 L 410) HEMATOCRIT (BEAKER) (test code = 26.9 % 40.1-51.0 L 411) MEAN CORPUSCULAR VOLUME (BEAKER) 103.1 fL 79.0-92.2 H (test code = 753) MEAN CORPUSCULAR HEMOGLOBIN 31.4 pg 25.7-32.2 (BEAKER) (test code = 751) MEAN CORPUSCULAR HEMOGLOBIN CONC 30.5 GM/DL 32.3-36.5 L (BEAKER) (test code = 752) RED CELL DISTRIBUTION WIDTH 16.1 % 11.6-14.4 H (BEAKER) (test code = 412) PLATELET COUNT (BEAKER) (test 167 K/CU MM 150-450 code = 756) MEAN PLATELET VOLUME (BEAKER) 8.7 fL 9.4-12.4 L (test code = 754) NUCLEATED RED BLOOD CELLS 1 /100 WBC 0-0 H ([facility]) (test code = 413) POCT-GLUCOSE [id number] 22:54:00 Test Item Value Reference Range Interpretation Comments POC-GLUCOSE METER 206 mg/dL 70-110 H TESTED AT [place] [address] ([facility]) (test code = [facility] 1538) [address] [id number] 19:36:00 Test Item Value Reference Range Interpretation Comments PARTIAL THROMBOPLASTIN TIME 79.3 seconds 22.5-36.0 H ([facility]) (test code = 760) POCT-GLUCOSE [id number] 17:59:00 Test Item Value Reference Range Interpretation Comments POC-GLUCOSE METER 186 mg/dL 70-110 H TESTED AT [place] [address] ([facility]) (test code = F[place]ER Paul [facility] 1538) [address] POCT-GLUCOSE [id number] 13:54:00 Test Item Value Reference Range Interpretation Comments POC-GLUCOSE METER 139 mg/dL 70-110 H TESTED AT [place] [address] ([facility]) (test code = F[facility]ER Paul [facility] 1538) [address] POCT-GLUCOSE [id number] 13:05:00 Test Item Value Reference Range Interpretation Comments POC-GLUCOSE METER 163 mg/dL 70-110 H TESTED AT [place] [address] ([facility]) (test code = F[facility]ER Paul [facility] 1538) [id number] 12:49:00 Test Item Value Reference Range Interpretation Comments PARTIAL THROMBOPLASTIN TIME 64.9 seconds 22.5-36.0 H ([facility]) (test code = 760) OCCULT BLOOD, [id number] 12:31:00 Test Item Value Reference Range Interpretation Comments FECAL OCCULT BLOOD ([facility]) (test Negative Negative code = 618) RAD, CHEST, 1 VIEW, NON [id number] 10:37:00Reason for exam:->Post opShould this be performed [...] Signed: Sarah Beth Mejia MDReport Verified Date/Time: 01/02/2019 10:37:35 Reading Loc ation: [facility] Michelle [facility] Radiology Reading Room POCT-GLUCOSE [id number] 08:07:00 Test Item Value Reference Range Interpretation Comments POC-GLUCOSE METER 107 mg/dL 70-110 TESTED AT [facility] 6720 (BEAKER) (test code = [place] 1538) [id number] 04:48:00 Test Item Value Reference Range Interpretation Comments PARTIAL THROMBOPLASTIN TIME 106.0 seconds 22.5-36.0 H (BEAKER) (test code = 760) While on warfarin.BASIC METABOLIC [id number] 04:48:00 Test Item Value Reference Range Interpretation Comments SODIUM (BEAKER) 135 meq/L 136-145 L (test code = 381) POTASSIUM (BEAKER) 4.0 meq/L 3.5-5.1 (test code = 379) CHLORIDE (BEAKER) 98 meq/L 98-107 (test code = 382) CO2 (BEAKER) (test 31 meq/L 22-29 H code = 355) BLOOD UREA NITROGEN 25 mg/dL 7-21 H (BEAKER) (test code = 354) CREATININE (BEAKER) 3.58 mg/dL 0.57-1.25 H (test code = 358) GLUCOSE RANDOM 86 mg/dL 70-105 (BEAKER) (test code = 652) CALCIUM (BEAKER) 9.1 mg/dL 8.4-10.2 (test code = 697) EGFR (BEAKER) (test 21 mL/min/1.73 ESTIMA JAYLA GFR IS code = 1092) sq m NOT ACCURATE CREATININE CLEARANCE IN PREDICTING GLOMERULAR FILTRATION RATE . ESTIMATED GFR I S NOT APPLICABLE FOR DIALYSIS PATIEN TS. PROTHROMBIN [id number] 04:39:00 Test Item Value Reference Range Interpretation Comments PROTIME (BEAKER) (test code = 19.4 seconds 11.7-14.7 H 759) INR (BEAKER) (test code = 370) 1.7 <=5.9 RECOMMENDED COUMADIN/WARFARIN INR THERAPY RANGESSTANDARD DOSE: 2.0 - 3.0 Includes: PROPHYLAXIS forvenous thrombosis, systemic embolization; TREATMENT for venous thrombosis and/or pulmonary embolus.HIGH RISK: Target INR is 2.5-3.5 for patients with mechanical heart valves.While on warfarin.CBC (HEMOGRAM ONLY) 2019-01-02 04:30:00 Test Item Value Reference Range Interpretation Comments WHITE BLOOD CELL COUNT (BEAKER) 12.4 K/ L 3.5-10.5 H (test code = 775) RED BLOOD CELL COUNT (BEAKER) 2.51 M/ L 4.63-6.08 L (test code = 761) HEMOGLOBIN (BEAKER) (test code = 8.2 GM/DL 13.7-17.5 L 410) HEMATOCRIT (BEAKER) (test code = 26.0 % 40.1-51.0 L 411) MEAN CORPUSCULAR VOLUME (BEAKER) 103.6 fL 79.0-92.2 H (test code = 753) MEAN CORPUSCULAR HEMOGLOBIN 32.7 pg 25.7-32.2 H (BEAKER) (test code = 751) MEAN CORPUSCULAR HEMOGLOBIN CONC 31.5 GM/DL 32.3-36.5 L (BEAKER) (test code = 752) RED CELL DISTRIBUTION WIDTH 16.5 % 11.6-14.4 H (BEAKER) (test code = 412) PLATELET COUNT (BEAKER) (test 161 K/CU MM 150-450 code = 756) MEAN PLATELET VOLUME (BEAKER) 8.9 fL 9.4-12.4 L (test code = 754) NUCLEATED RED BLOOD CELLS 0 /100 WBC 0-0 (BEAKER) (test code = 413) POCT-GLUCOSE [id number] 22:17:00 Test Item Value Reference Range Interpretation Comments POC-GLUCOSE METER 117 mg/dL 70-110 H TESTED AT [facility] 6720 (BEAKER) (test code = [facility] [place] 1538) [id number] RAD, CHEST, 1 VIEW, NON [id number] 19:40:00Reason for exam:->Post opShould this be performed [...] Bloom Verified Date/Time: 01/01/2019 19:40:01 Reading Location: [address] Reading Room POCT-GLUCOSE [id number] 18:22:00 Test Item Value Reference Range Interpretation Comments POC-GLUCOSE METER 159 mg/dL 70-110 H TESTED AT [place] [address] ([facility]) (test code = F[facility]ER Paul [facility] 1538) [id number] POCT-GLUCOSE [id number] 14:12:00 Test Item Value Reference Range Interpretation Comments POC-GLUCOSE METER 135 mg/dL 70-110 H TESTED AT [place] [address] ([facility]) (test code = [facility] Humberto [facility] 1538) [address] HEPATITIS B SURFACE [id number] 11:52:00 Test Item Value Reference Range Interpretation Comments HEPATITIS B SURFACE ANTIGEN (2) Nonreactive Nonreactive ([facility]) (test code = 2585) POCT-GLUCOSE [id number] 08:40:00 Test Item Value Reference Range Interpretation Comments POC-GLUCOSE METER 85 mg/dL 70-110 TESTED AT [place] [id number] ([facility]) (test code = FOSTER Paul [facility] [id number] 1538) BASIC METABOLIC [id number] 04:17:00 Test Item Value Reference Range Interpretation Comments SODIUM (BEAKER) 132 meq/L 136-145 L (test code = 381) POTASSIUM (BEAKER) 4.2 meq/L 3.5-5.1 Specimen slightly (test code = 379) hemolyzed CHLORIDE (BEAKER) 95 meq/L 98-107 L (test code = 382) CO2 (BEAKER) (test 30 meq/L 22-29 H code = 355) BLOOD UREA NITROGEN 41 mg/dL 7-21 H (BEAKER) (test code = 354) CREATININE (BEAKER) 4.98 mg/dL 0.57-1.25 H Specimen slightly (test code = 358) hemolyzed GLUCOSE RANDOM 96 mg/dL 70-105 (BEAKER) (test code = 652) CALCIUM (BEAKER) 9.2 mg/dL 8.4-10.2 (test code = 697) EGFR (BEAKER) (test 14 mL/min/1.73 ESTIMA JAYLA GFR IS code = 1092) sq m NOT ACCURATE CREATININE CLEARANCE IN PREDICTING GLOMERULAR FILTRATION RATE . ESTIMATED GFR I S NOT APPLICABLE FOR DIALYSIS PATIEN TS. [id number] 03:40:00 Test Item Value Reference Range Interpretation Comments PARTIAL THROMBOPLASTIN TIME 84.1 seconds 22.5-36.0 H (BEAKER) (test code = 760) While on warfarin.PROTHROMBIN [id number] 03:39:00 Test Item Value Reference Range Interpretation Comments PROTIME (BEAKER) (test code = 19.1 seconds 11.7-14.7 H 759) INR (BEAKER) (test code = 370) 1.7 <=5.9 RECOMMENDED COUMADIN/WARFARIN INR THERAPY RANGESSTANDARD DOSE: 2.0 - 3.0 Includes: PROPHYLAXIS forvenous thrombosis, systemic embolization; TREATMENT for venous thrombosis and/or pulmonary embolus.HIGH RISK: Target INR is 2.5-3.5 for patients with mechanical heart valves.While on warfarin.CBC (HEMOGRAM ONLY) 2019-01-01 03:29:00 Test Item Value Reference Range Interpretation Comments WHITE BLOOD CELL COUNT (BEAKER) 13.2 K/ L 3.5-10.5 H (test code = 775) RED BLOOD CELL COUNT (BEAKER) 2.60 M/ L 4.63-6.08 L (test code = 761) HEMOGLOBIN (BEAKER) (test code = 8.3 GM/DL 13.7-17.5 L 410) HEMATOCRIT (BEAKER) (test code = 26.3 % 40.1-51.0 L 411) MEAN CORPUSCULAR VOLUME ([facility]) 101.2 fL 79.0-92.2 H (test code = 753) MEAN CORPUSCULAR HEMOGLOBIN 31.9 pg 25.7-32.2 ([facility]) (test code = 751) MEAN CORPUSCULAR HEMOGLOBIN CONC 31.6 GM/DL 32.3-36.5 L ([facility]) (test code = 752) RED CELL DISTRIBUTION WIDTH 15.9 % 11.6-14.4 H ([facility]) (test code = 412) PLATELET COUNT ([facility]) (test 186 K/CU MM 150-450 code = 756) MEAN PLATELET VOLUME ([facility]) 9.0 fL 9.4-12.4 L (test code = 754) NUCLEATED RED BLOOD CELLS 0 /100 WBC 0-0 ([facility]) (test code = 413) POCT-GLUCOSE [id number] 22:08:00 Test Item Value Reference Range Interpretation Comments POC-GLUCOSE METER 194 mg/dL 70-110 H TESTED AT [place] [address] ([facility]) (test code = [facility] 1538) [id number] POCT-GLUCOSE [id number] 22:03:00 Test Item Value Reference Range Interpretation Comments POC-GLUCOSE METER 203 mg/dL 70-110 H TESTED AT [place] [address] ([facility]) (test code = [facility] 1538) [id number] POCT-GLUCOSE [id number] 21:42:00 Test Item Value Reference Range Interpretation Comments POC-GLUCOSE METER 42 mg/dL 70-110 L TESTED AT [place] [address] ([facility]) (test code = [facility] [address] 1538) [id number] 21:35:00 Test Item Value Reference Range Interpretation Comments PARTIAL THROMBOPLASTIN TIME 80.4 seconds 22.5-36.0 H ([facility]) (test code = 760) POCT-GLUCOSE [id number] 18:03:00 Test Item Value Reference Range Interpretation Comments POC-GLUCOSE METER 144 mg/dL 70-110 H TESTED AT [place] [address] ([facility]) (test code = [facility] 1538) [id number] TISSUE [id number] 16:33:00Surgical Pathology Report Case: [id number] Authorizing Provider: Enmanuel Sharma Collected: 12/26/2018 1537 MD Liban OrderingLocation: [address] Received: 12/29/2018 0814 Service Pathologist: Brigida [...] stains. GMSImmunohistochemistry technical testing was performed at [facility], Pathology Laboratory where it was developed [...] toperform high complexity clinical laboratory testing.CPT CODE: [id number] electronically signed byBrigida Parks MD on 12/31/2018 [...] ARE NEGATIVE Signing Pathologist Direct Phone Line: [phone] signed by Brigida Parks MD on 12/30/2018 at 6:43 PMPreliminary result electronically signed by Brigida Parks MD on 12/29/2018 at 4:54 [id number] X 2; [id number]; 23102; [id number] X 2Upper endoscopy, biopsyPreoperative and postoperative diagnosis: [...] AND CMVImmunohistochemistry technical testing was performed at [facility], Pathology Laboratory where it was developed [...] qualified toperform high complexity clinical laboratory testing.POCT-GLUCOSE [id number] 13:57:00 Test Item Value Reference Range Interpretation Comments POC-GLUCOSE METER 178 mg/dL 70-110 H TESTED AT [facility] 6720 ([facility]) (test code = FOSTER Paul [facility] 1538) [address] [id number] 12:54:00 Test Item Value Reference Range Interpretation Comments PARTIAL THROMBOPLASTIN TIME 69.4 seconds 22.5-36.0 H ([facility] (test code = 760) RAD, CHEST, 1 VIEW, NON [id number] 09:26:00Reason for exam:->Post opShould this be performed [...] MDReport Verified Date/Time: 12/31/2018 09:26:31 Reading Location: [facility] Radiology Reading Room POCT-GLUCOSE [id number] 09:01:00 Test Item Value Reference Range Interpretation Comments POC-GLUCOSE METER 162 mg/dL 70-110 H TESTED AT [facility] 6720 (BEAKER) (test code = FOSTER LÓPEZ [place] 1538) [address] BASIC METABOLIC [id number] 06:50:00 Test Item Value Reference Range Interpretation Comments SODIUM (BEAKER) 132 meq/L 136-145 L (test code = 381) POTASSIUM (BEAKER) 3.5 meq/L 3.5-5.1 (test code = 379) CHLORIDE (BEAKER) 96 meq/L 98-107 L (test code = 382) CO2 (BEAKER) (test 30 meq/L 22-29 H code = 355) BLOOD UREA NITROGEN 26 mg/dL 7-21 H (BEAKER) (test code = 354) CREATININE (BEAKER) 3.97 mg/dL 0.57-1.25 H (test code = 358) GLUCOSE RANDOM 151 mg/dL 70-105 H (BEAKER) (test code = 652) CALCIUM (BEAKER) 8.5 mg/dL 8.4-10.2 (test code = 697) EGFR (BEAKER) (test 19 mL/min/1.73 ESTIMA JAYLA GFR IS code = 1092) sq m NOT ACCURATE CREATININE CLEARANCE IN PREDICTING GLOMERULAR FILTRATION RATE . ESTIMATED GFR I S NOT APPLICABLE FOR DIALYSIS PATIEN TS. PROTHROMBIN [id number] 06:38:00 Test Item Value Reference Range Interpretation Comments PROTIME (BEAKER) (test code = 19.1 seconds 11.7-14.7 H 759) INR (BEAKER) (test code = 370) 1.7 <=5.9 RECOMMENDED COUMADIN/WARFARIN INR THERAPY RANGESSTANDARD DOSE: 2.0 - 3.0 Includes: PROPHYLAXIS forvenous thrombosis, systemic embolization; TREATMENT for venous thrombosis and/or pulmonary embolus.HIGH RISK: Target INR is 2.5-3.5 for patients with mechanical heart valves.While on warfarin.[id number] 06:37:00 Test Item Value Reference Range Interpretation Comments PARTIAL THROMBOPLASTIN TIME 85.3 seconds 22.5-36.0 H (BEAKER) (test code = 760) CBC (HEMOGRAM ONLY)2018-12-31 06:20:00 Test Item Value Reference Range Interpretation Comments WHITE BLOOD CELL COUNT (BEAKER) 11.9 K/ L 3.5-10.5 H (test code = 775) RED BLOOD CELL COUNT (BEAKER) 2.58 M/ L 4.63-6.08 L (test code = 761) HEMOGLOBIN (BEAKER) (test code = 8.3 GM/DL 13.7-17.5 L 410) HEMATOCRIT (BEAKER) (test code = 26.2 % 40.1-51.0 L 411) MEAN CORPUSCULAR VOLUME (BEAKER) 101.6 fL 79.0-92.2 H (test code = 753) MEAN CORPUSCULAR HEMOGLOBIN 32.2 pg 25.7-32.2 (BEAKER) (test code = 751) MEAN CORPUSCULAR HEMOGLOBIN CONC 31.7 GM/DL 32.3-36.5 L (BEAKER) (test code = 752) RED CELL DISTRIBUTION WIDTH 15.9 % 11.6-14.4 H (BEAKER) (test code = 412) PLATELET COUNT (BEAKER) (test 156 K/CU MM 150-450 code = 756) MEAN PLATELET VOLUME (BEAKER) 8.7 fL 9.4-12.4 L (test code = 754) NUCLEATED RED BLOOD CELLS 0 /100 WBC 0-0 (BEAKER) (test code = 413) POCT-GLUCOSE [id number] 00:45:00 Test Item Value Reference Range Interpretation Comments POC-GLUCOSE METER 124 mg/dL 70-110 H TESTED AT [facility] 6720 (AKER) (test code = MARIA GOSMAN BRANDON 1538) [id number] 19:14:00 Test Item Value Reference Range Interpretation Comments PARTIAL THROMBOPLASTIN TIME 57.8 seconds 22.5-36.0 H (BEAKER) (test code = 760) POCT-GLUCOSE [id number] 17:53:00 Test Item Value Reference Range Interpretation Comments POC-GLUCOSE METER 133 mg/dL 70-110 H TESTED AT [place] [address] (BEAKER) (test code = FOSTER Paul [place] 1538) [address] POCT-GLUCOSE [id number] 13:19:00 Test Item Value Reference Range Interpretation Comments POC-GLUCOSE METER 147 mg/dL 70-110 H TESTED AT [place] [address] (BEAKER) (test code = FOSTER Paul [facility] 1538) [address] [id number] 12:43:00 Test Item Value Reference Range Interpretation Comments PARTIAL THROMBOPLASTIN TIME 57.0 seconds 22.5-36.0 H (BEAKER) (test code = 760) [id number] 10:17:00 Test Item Value Reference Range Interpretation Comments PARTIAL THROMBOPLASTIN TIME 134.5 seconds 22.5-36.0 H (BEAKER) (test code = 760) POCT-GLUCOSE [id number] 07:43:00 Test Item Value Reference Range Interpretation Comments POC-GLUCOSE METER 107 mg/dL 70-110 TESTED AT [place] [address] ([facility]) (test code = FOSTER Paul [facility] 1538) [address] BASIC METABOLIC [id number] 06:46:00 Test Item Value Reference Range Interpretation Comments SODIUM (BEAKER) 129 meq/L 136-145 L (test code = 381) POTASSIUM (BEAKER) 4.1 meq/L 3.5-5.1 (test code = 379) CHLORIDE (BEAKER) 93 meq/L 98-107 L (test code = 382) CO2 (BEAKER) (test 28 meq/L 22-29 code = 355) BLOOD UREA NITROGEN 43 mg/dL 7-21 H (BEAKER) (test code = 354) CREATININE (BEAKER) 6.30 mg/dL 0.57-1.25 H (test code = 358) GLUCOSE RANDOM 110 mg/dL 70-105 H (BEAKER) (test code = 652) CALCIUM (BEAKER) 8.5 mg/dL 8.4-10.2 (test code = 697) EGFR (BEAKER) (test 11 mL/min/1.73 ESTIMA JAYLA GFR IS code = 1092) sq m NOT ACCURATE CREATININE CLEARANCE IN PREDICTING GLOMERULAR FILTRATION RATE . ESTIMATED GFR I S NOT APPLICABLE FOR DIALYSIS PATIEN TS. RAD, CHEST, 1 VIEW, NON [id number] 06:25:00Reason for exam:->Post opShould this be performed [...] Stable surgical changes.Additional findings: None. Signed: Radha Lisaort Verified Date/Time: 12/30/2018 06:25:51 Reading Location: [address] Neuro Reading Room PROTHROMBIN TIME/[id number] 06:06:00 Test Item Value Reference Range Interpretation Comments PROTIME (BEAKER) (test code = 19.5 seconds 11.7-14.7 H 759) INR (BEAKER) (test code = 370) 1.8 <=5.9 RECOMMENDED COUMADIN/WARFARIN INR THERAPY RANGESSTANDARD DOSE: 2.0 - 3.0 Includes: PROPHYLAXIS forvenous thrombosis, systemic embolization; TREATMENT for venous thrombosis and/or pulmonary embolus.HIGH RISK: Target INR is 2.5-3.5 for patients with mechanical heart valves.While on warfarin.CBC (HEMOGRAM ONLY) 2018-12-30 06:00:00 Test Item Value Reference Range Interpretation Comments WHITE BLOOD CELL COUNT (BEAKER) 11.4 K/ L 3.5-10.5 H (test code = 775) RED BLOOD CELL COUNT (BEAKER) 2.62 M/ L 4.63-6.08 L (test code = 761) HEMOGLOBIN (BEAKER) (test code = 8.4 GM/DL 13.7-17.5 L 410) HEMATOCRIT (BEAKER) (test code = 26.1 % 40.1-51.0 L 411) MEAN CORPUSCULAR VOLUME ([facility]) 99.6 fL 79.0-92.2 H (test code = 753) MEAN CORPUSCULAR HEMOGLOBIN 32.1 pg 25.7-32.2 ([facility]) (test code = 751) MEAN CORPUSCULAR HEMOGLOBIN CONC 32.2 GM/DL 32.3-36.5 L ([facility]) (test code = 752) RED CELL DISTRIBUTION WIDTH 15.5 % 11.6-14.4 H ([facility]) (test code = 412) PLATELET COUNT ([facility]) (test 139 K/CU MM 150-450 L code = 756) MEAN PLATELET VOLUME ([facility]) 9.1 fL 9.4-12.4 L (test code = 754) NUCLEATED RED BLOOD CELLS 0 /100 WBC 0-0 ([facility]) (test code = 413) POCT-GLUCOSE [id number] 22:19:00 Test Item Value Reference Range Interpretation Comments POC-GLUCOSE METER 179 mg/dL 70-110 H TESTED AT [place] [address] ([facility]) (test code = [facility] 1538) [address] POCT-GLUCOSE [id number] 17:39:00 Test Item Value Reference Range Interpretation Comments POC-GLUCOSE METER 181 mg/dL 70-110 H TESTED AT [place] [address] ([facility]) (test code = [facility] 1538) [address] POCT-GLUCOSE [id number] 13:14:00 Test Item Value Reference Range Interpretation Comments POC-GLUCOSE METER 102 mg/dL 70-110 TESTED AT [place] [address] ([facility]) (test code = [facility] 1538) [address] RAD, CHEST, 1 VIEW, NON [id number] 08:56:00Reason for exam:->Post opShould this be performed [...] change. Signed: Edenilson Bloom MDReport Verified Date/Time: 12/29/2018 08:56:32 Reading Location: [facility] Radiology Reading Room Electronically signed by: EDENILSON BLOOM M.D.on 12/29/2018 08:56 AMPOCT-GLUCOSE [id number] 07:53:00 Test Item Value Reference Range Interpretation Comments POC-GLUCOSE METER 135 mg/dL 70-110 H TESTED AT [facility] 6720 (BEAKER) (test code = OFSTER L[place]PE[place] 1538) [address] [id number] 06:45:00 Test Item Value Reference Range Interpretation Comments PARTIAL THROMBOPLASTIN TIME 83.5 seconds 22.5-36.0 H (BEAKER) (test code = 760) While on warfarin.PROTHROMBIN TIME/[id number] 06:44:00 Test Item Value Reference Range Interpretation Comments PROTIME (BEAKER) (test code = 17.1 seconds 11.7-14.7 H 759) INR (BEAKER) (test code = 370) 1.5 <=5.9 RECOMMENDED COUMADIN/WARFARIN INR THERAPY RANGESSTANDARD DOSE: 2.0 - 3.0 Includes: PROPHYLAXIS forvenous thrombosis, systemic embolization; TREATMENT for venous thrombosis and/or pulmonary embolus.HIGH RISK: Target INR is 2.5-3.5 for patients with mechanical heart valves.While on warfarin.BASIC METABOLIC PANEL 2018-12-29 05:56:00 Test Item Value Reference Range Interpretation Comments SODIUM (BEAKER) 129 meq/L 136-145 L (test code = 381) POTASSIUM (BEAKER) 4.2 meq/L 3.5-5.1 (test code = 379) CHLORIDE (BEAKER) 93 meq/L 98-107 L (test code = 382) CO2 (BEAKER) (test 29 meq/L -29 code = 355) BLOOD UREA NITROGEN 31 mg/dL 7-21 H (BEAKER) (test code = 354) CREATININE (BEAKER) 5.18 mg/dL 0.57-1.25 H (test code = 358) GLUCOSE RANDOM 96 mg/dL 70-105 (BEAKER) (test code = 652) CALCIUM (BEAKER) 8.3 mg/dL 8.4-10.2 L (test code = 697) EGFR (BEAKER) (test 14 mL/min/1.73 ESTIMA JAYLA GFR IS code = 1092) sq m NOT ACCURATE CREATININE CLEARANCE IN PREDICTING GLOMERULAR FILTRATION RATE . ESTIMATED GFR I S NOT APPLICABLE FOR DIALYSIS PATIEN TS. CBC (HEMOGRAM ONLY)2018-12-29 05:22:00 Test Item Value Reference Range Interpretation Comments WHITE BLOOD CELL COUNT (BEAKER) 12.0 K/ L 3.5-10.5 H (test code = 775) RED BLOOD CELL COUNT (BEAKER) 2.66 M/ L 4.63-6.08 L (test code = 761) HEMOGLOBIN (BEAKER) (test code = 8.7 GM/DL 13.7-17.5 L 410) HEMATOCRIT (BEAKER) (test code = 26.6 % 40.1-51.0 L 411) MEAN CORPUSCULAR VOLUME (BEAKER) 100.0 fL 79.0-92.2 H (test code = 753) MEAN CORPUSCULAR HEMOGLOBIN 32.7 pg 25.7-32.2 H (BEAKER) (test code = 751) MEAN CORPUSCULAR HEMOGLOBIN CONC 32.7 GM/DL 32.3-36.5 (BEAKER) (test code = 752) RED CELL DISTRIBUTION WIDTH 15.6 % 11.6-14.4 H (BEAKER) (test code = 412) PLATELET COUNT (BEAKER) (test 131 K/CU MM 150-450 L code = 756) MEAN PLATELET VOLUME (BEAKER) 9.1 fL 9.4-12.4 L (test code = 754) NUCLEATED RED BLOOD CELLS 0 /100 WBC 0-0 (BEAKER) (test code = 413) [id number] 00:01:00 Test Item Value Reference Range Interpretation Comments PARTIAL THROMBOPLASTIN TIME 78.5 seconds 22.5-36.0 H (BEAKER) (test code = 760) POCT-GLUCOSE [id number] 21:26:00 Test Item Value Reference Range Interpretation Comments POC-GLUCOSE METER 139 mg/dL 70-110 H TESTED AT [facility] 6720 (BEAKER) (test code = FOSTER BRAND[place] 1538) [id number] POCT-GLUCOSE [id number] 17:58:00 Test Item Value Reference Range Interpretation Comments POC-GLUCOSE METER 146 mg/dL 70-110 H TESTED AT [facility] 6720 (BEAKER) (test code = FOSTER L[place]PE[place] 1538) [address] [id number] 17:16:00 Test Item Value Reference Range Interpretation Comments PARTIAL THROMBOPLASTIN TIME 34.5 seconds 22.5-36.0 (BEAKER) (test code = 760) Prior to initiating heparinPOCT-GLUCOSE [id number] 12:54:00 Test Item Value Reference Range Interpretation Comments POC-GLUCOSE METER 133 mg/dL 70-110 H TESTED AT [facility] 6720 ([facility]) (test code = FOSTER L[place]PE[place] 1538) [address] RAD, CHEST, 1 VIEW, NON [id number] 08:06:00Reason for exam:->Post opShould this be performed at the bedside?->YesFINAL REPORT Chest one view. Clinical history: Post op Comparison: 12/27/2018 Discussion: A frontal chest is provided. Cardiomediastinal contours are unchanged. Lines and tubesare in stable position. Unchanged right-sided pleural-parenchymal opacities. Left lung is grossly clear. Vessels do not appear engorged. No pneumothorax. Signed: Dionicio Chery Verified Date/Time: 12/28/2018 08:06:07 Reading Location: [facility] C0[facility] Neuro Reading Room BASIC METABOLIC [id number] 06:52:00 Test Item Value Reference Range Interpretation Comments SODIUM (BEAKER) 130 meq/L 136-145 L (test code = 381) POTASSIUM (BEAKER) 3.9 meq/L 3.5-5.1 (test code = 379) CHLORIDE (BEAKER) 94 meq/L 98-107 L (test code = 382) CO2 (BEAKER) (test 29 meq/L 22-29 code = 355) BLOOD UREA NITROGEN 18 mg/dL 7-21 (BEAKER) (test code = 354) CREATININE (BEAKER) 3.73 mg/dL 0.57-1.25 H (test code = 358) GLUCOSE RANDOM 104 mg/dL 70-105 (BEAKER) (test code = 652) CALCIUM (BEAKER) 8.7 mg/dL 8.4-10.2 (test code = 697) EGFR (BEAKER) (test 20 mL/min/1.73 ESTIMA JAYLA GFR IS code = 1092) sq m NOT ACCURATE CREATININE CLEARANCE IN PREDICTING GLOMERULAR FILTRATION RATE . ESTIMATED GFR I S NOT APPLICABLE FOR DIALYSIS PATIEN TS. PROTHROMBIN [id number] 06:31:00 Test Item Value Reference Range Interpretation Comments PROTIME (BEAKER) (test code = 19.4 seconds 11.7-14.7 H 759) INR (BEAKER) (test code = 370) 1.7 <=5.9 RECOMMENDED COUMADIN/WARFARIN INR THERAPY RANGESSTANDARD DOSE: 2.0 - 3.0 Includes: PROPHYLAXIS forvenous thrombosis, systemic embolization; TREATMENT for venous thrombosis and/or pulmonary embolus.HIGH RISK: Target INR is 2.5-3.5 for patients with mechanical heart valves.CBC (HEMOGRAM ONLY)2018-12-28 06:09:00 Test Item Value Reference Range Interpretation Comments WHITE BLOOD CELL COUNT (BEAKER) 9.9 K/ L 3.5-10.5 (test code = 775) RED BLOOD CELL COUNT (BEAKER) 2.79 M/ L 4.63-6.08 L (test code = 761) HEMOGLOBIN (BEAKER) (test code = 8.9 GM/DL 13.7-17.5 L 410) HEMATOCRIT (BEAKER) (test code = 28.2 % 40.1-51.0 L 411) MEAN CORPUSCULAR VOLUME (BEAKER) 101.1 fL 79.0-92.2 H (test code = 753) MEAN CORPUSCULAR HEMOGLOBIN 31.9 pg 25.7-32.2 (BEAKER) (test code = 751) MEAN CORPUSCULAR HEMOGLOBIN CONC 31.6 GM/DL 32.3-36.5 L (BEAKER) (test code = 752) RED CELL DISTRIBUTION WIDTH 15.9 % 11.6-14.4 H (BEAKER) (test code = 412) PLATELET COUNT (BEAKER) (test 110 K/CU MM 150-450 L code = 756) MEAN PLATELET VOLUME (BEAKER) 9.3 fL 9.4-12.4 L (test code = 754) NUCLEATED RED BLOOD CELLS 0 /100 WBC 0-0 ([facility]) (test code = 413) POCT-GLUCOSE [id number] 21:41:00 Test Item Value Reference Range Interpretation Comments POC-GLUCOSE METER 163 mg/dL 70-110 H TESTED AT [facility] 6720 ([facility]) (test code = FOSTER Paul [facility] 1538) [id number] POCT-GLUCOSE [id number] 17:23:00 Test Item Value Reference Range Interpretation Comments POC-GLUCOSE METER 119 mg/dL 70-110 H TESTED AT [facility] 6720 ([facility]) (test code = FOSTER Paul [facility] 1538) [address] RAD, CHEST, 1 VIEW, NON [id number] 14:49:00Reason for exam:->Post opShould this be performed [...] MDReport Verified Date/Time: 12/27/2018 14:49:48 Reading Location: [address] Ortho Consult Reading Room ANG, NON-TUNNELED CATH >5 Y.O. [id number] 14:17:00Reason for exam:->Central line placement, poor access, [...] guide wire was advanced centrally. A 7 Finnish 20 cm triple lumen catheter was advanced [...] Sykes Verified Date/Time: 12/27/2018 14:17:02 Reading Location: [place] [address] Angio Body Reading Room [id number] 13:44:00 Test Item Value Reference Range Interpretation Comments PARTIAL THROMBOPLASTIN TIME 44.3 seconds 22.5-36.0 H ([facility]) (test code = 760) Prior to initiating heparinPOCT-GLUCOSE [id number] 13:27:00 Test Item Value Reference Range Interpretation Comments POC-GLUCOSE METER 127 mg/dL 70-110 H TESTED AT [place] [address] ([facility]) (test code = [facility] 1538) [id number] POCT-GLUCOSE [id number] 08:58:00 Test Item Value Reference Range Interpretation Comments POC-GLUCOSE METER 79 mg/dL 70-110 TESTED AT [facility] 6720 ([facility]) (test code = [facility] [address] 1538) BASIC METABOLIC [id number] 07:09:00 Test Item Value Reference Range Interpretation Comments SODIUM (BEAKER) 135 meq/L 136-145 L (test code = 381) POTASSIUM (BEAKER) 3.8 meq/L 3.5-5.1 (test code = 379) CHLORIDE (BEAKER) 96 meq/L 98-107 L (test code = 382) CO2 (BEAKER) (test 35 meq/L 22-29 H code = 355) BLOOD UREA NITROGEN 18 mg/dL 7-21 (BEAKER) (test code = 354) CREATININE (BEAKER) 4.91 mg/dL 0.57-1.25 H (test code = 358) GLUCOSE RANDOM 81 mg/dL 70-105 (BEAKER) (test code = 652) CALCIUM (BEAKER) 8.5 mg/dL 8.4-10.2 (test code = 697) EGFR (BEAKER) (test 15 mL/min/1.73 ESTIMA JAYLA GFR IS code = 1092) sq m NOT ACCURATE CREATININE CLEARANCE IN PREDICTING GLOMERULAR FILTRATION RATE . ESTIMATED GFR I S NOT APPLICABLE FOR DIALYSIS PATIEN TS. PROTHROMBIN [id number] 06:52:00 Test Item Value Reference Range Interpretation Comments PROTIME (BEAKER) (test code = 23.3 seconds 11.7-14.7 H 759) INR (BEAKER) (test code = 370) 2.0 <=5.9 RECOMMENDED COUMADIN/WARFARIN INR THERAPY RANGESSTANDARD DOSE: 2.0 - 3.0 Includes: PROPHYLAXIS forvenous thrombosis, systemic embolization; TREATMENT for venous thrombosis and/or pulmonary embolus.HIGH RISK: Target INR is 2.5-3.5 for patients with mechanical heart valves.CBC (HEMOGRAM ONLY)2018-12-27 06:28:00 Test Item Value Reference Range Interpretation Comments WHITE BLOOD CELL COUNT (BEAKER) 7.1 K/ L 3.5-10.5 (test code = 775) RED BLOOD CELL COUNT (BEAKER) 2.16 M/ L 4.63-6.08 L (test code = 761) HEMOGLOBIN (BEAKER) (test code = 6.9 GM/DL 13.7-17.5 L 410) HEMATOCRIT (BEAKER) (test code = 22.5 % 40.1-51.0 L 411) MEAN CORPUSCULAR VOLUME (BEAKER) 104.2 fL 79.0-92.2 H (test code = 753) MEAN CORPUSCULAR HEMOGLOBIN 31.9 pg 25.7-32.2 (BEAKER) (test code = 751) MEAN CORPUSCULAR HEMOGLOBIN CONC 30.7 GM/DL 32.3-36.5 L (BEAKER) (test code = 752) RED CELL DISTRIBUTION WIDTH 15.0 % 11.6-14.4 H ([facility]) (test code = 412) PLATELET COUNT ([facility]) (test code 90 K/CU MM 150-450 L = 756) MEAN PLATELET VOLUME ([facility]) 9.1 fL 9.4-12.4 L (test code = 754) NUCLEATED RED BLOOD CELLS ([facility]) 0 /100 WBC 0-0 (test code = 413) POCT-GLUCOSE [id number] 23:54:00 Test Item Value Reference Range Interpretation Comments POC-GLUCOSE METER 73 mg/dL 70-110 TESTED AT [place] [address] ([facility]) (test code = [place] [address] 1538) POCT-GLUCOSE [id number] 16:02:00 Test Item Value Reference Range Interpretation Comments POC-GLUCOSE METER 108 mg/dL 70-110 TESTED AT [place] [address] ([facility]) (test code = [place] 1538) [address] POCT-GLUCOSE [id number] 15:24:00 Test Item Value Reference Range Interpretation Comments POC-GLUCOSE METER 74 mg/dL 70-110 TESTED AT [place] [address] ([facility]) (test code = Fi.tt [facility] [address] 1538) POCT-GLUCOSE [id number] 10:29:00 Test Item Value Reference Range Interpretation Comments POC-GLUCOSE METER 88 mg/dL 70-110 TESTED AT [place] [address] ([facility]) (test code = Fi.tt [facility] [address] 1538) RAD, CHEST, 1 VIEW, NON [id number] 07:33:00Reason for exam:->Post opShould this be performed [...] MDReport Verified Date/Time: 12/26/2018 07:33:38 Reading Location: [facility] Radiology Reading Room BASIC METABOLIC [id number] 06:42:00 Test Item Value Reference Range Interpretation Comments SODIUM (BEAKER) 137 meq/L 136-145 (test code = 381) POTASSIUM (BEAKER) 3.9 meq/L 3.5-5.1 (test code = 379) CHLORIDE (BEAKER) 98 meq/L 98-107 (test code = 382) CO2 (BEAKER) (test 34 meq/L 22-29 H code = 355) BLOOD UREA NITROGEN 12 mg/dL 7-21 (BEAKER) (test code = 354) CREATININE (BEAKER) 3.18 mg/dL 0.57-1.25 H (test code = 358) GLUCOSE RANDOM 89 mg/dL 70-105 (BEAKER) (test code = 652) CALCIUM (BEAKER) 8.9 mg/dL 8.4-10.2 (test code = 697) EGFR (BEAKER) (test 24 mL/min/1.73 ESTIMA JAYLA GFR IS code = 1092) sq m NOT ACCURATE CREATININE CLEARANCE IN PREDICTING GLOMERULAR FILTRATION RATE . ESTIMATED GFR I S NOT APPLICABLE FOR DIALYSIS PATIEN TS. CBC (HEMOGRAM ONLY)2018-12-26 06:05:00 Test Item Value Reference Range Interpretation Comments WHITE BLOOD CELL COUNT (BEAKER) 6.3 K/ L 3.5-10.5 (test code = 775) RED BLOOD CELL COUNT (BEAKER) 2.25 M/ L 4.63-6.08 L (test code = 761) HEMOGLOBIN (BEAKER) (test code = 7.4 GM/DL 13.7-17.5 L 410) HEMATOCRIT (BEAKER) (test code = 23.1 % 40.1-51.0 L 411) MEAN CORPUSCULAR VOLUME (BEAKER) 102.7 fL 79.0-92.2 H (test code = 753) MEAN CORPUSCULAR HEMOGLOBIN 32.9 pg 25.7-32.2 H (BEAKER) (test code = 751) MEAN CORPUSCULAR HEMOGLOBIN CONC 32.0 GM/DL 32.3-36.5 L ([facility]) (test code = 752) RED CELL DISTRIBUTION WIDTH 15.0 % 11.6-14.4 H ([facility]) (test code = 412) PLATELET COUNT ([facility]) (test code 84 K/CU MM 150-450 L = 756) MEAN PLATELET VOLUME ([facility]) 8.6 fL 9.4-12.4 L (test code = 754) NUCLEATED RED BLOOD CELLS ([facility]) 1 /100 WBC 0-0 H (test code = 413) PROTHROMBIN [id number] 05:44:00 Test Item Value Reference Range Interpretation Comments PROTIME ([facility]) (test code = 24.4 seconds 11.7-14.7 H 759) INR ([facility]) (test code = 370) 2.2 <=5.9 RECOMMENDED COUMADIN/WARFARIN INR THERAPY RANGESSTANDARD DOSE: 2.0 - 3.0 Includes: PROPHYLAXIS forvenous thrombosis, systemic embolization; TREATMENT for venous thrombosis and/or pulmonary embolus.HIGH RISK: Target INR is 2.5-3.5 for patients with mechanical heart valves.POCT-GLUCOSE [id number] 00:06:00 Test Item Value Reference Range Interpretation Comments POC-GLUCOSE METER 88 mg/dL 70-110 TESTED AT [place] [id number] ([facility]) (test code = FOSTER Paul [facility] [id number]) POCT-GLUCOSE [id number] 19:06:00 Test Item Value Reference Range Interpretation Comments POC-GLUCOSE METER 121 mg/dL 70-110 H TESTED AT [place] [id number] ([facility] [facility]) (test code = [facility] 1538) [id number] PROTHROMBIN [id number] 16:10:00 Test Item Value Reference Range Interpretation Comments PROTIME ([facility]) (test code = 30.1 seconds 11.7-14.7 H 759) INR ([facility]) (test code = 370) 2.9 <=5.9 RECOMMENDED COUMADIN/WARFARIN INR THERAPY RANGESSTANDARD DOSE: 2.0 - 3.0 Includes: PROPHYLAXIS forvenous thrombosis, systemic embolization; TREATMENT for venous thrombosis and/or pulmonary embolus.HIGH RISK: Target INR is 2.5-3.5 for patients with mechanical heart valves.BASIC METABOLIC [id number] 16:10:00 Test Item Value Reference Range Interpretation Comments SODIUM (BEAKER) 128 meq/L 136-145 L (test code = 381) POTASSIUM (BEAKER) 4.9 meq/L 3.5-5.1 (test code = 379) CHLORIDE (BEAKER) 92 meq/L 98-107 L (test code = 382) CO2 (BEAKER) (test 27 meq/L 22-29 code = 355) BLOOD UREA NITROGEN 37 mg/dL 7-21 H (BEAKER) (test code = 354) CREATININE (BEAKER) 5.70 mg/dL 0.57-1.25 H (test code = 358) GLUCOSE RANDOM 108 mg/dL 70-105 H (BEAKER) (test code = 652) CALCIUM (BEAKER) 8.8 mg/dL 8.4-10.2 (test code = 697) EGFR (BEAKER) (test 12 mL/min/1.73 ESTIMA JAYLA GFR IS code = 1092) sq m NOT ACCURATE CREATININE CLEARANCE IN PREDICTING GLOMERULAR FILTRATION RATE . ESTIMATED GFR I S NOT APPLICABLE FOR DIALYSIS PATIEN TS. [id number] 16:09:00 Test Item Value Reference Range Interpretation Comments MAGNESIUM (BEAKER) (test code = 1.7 mg/dL 1.6-2.6 627) CBC (HEMOGRAM ONLY)2018-12-25 16:01:00 Test Item Value Reference Range Interpretation Comments WHITE BLOOD CELL COUNT (BEAKER) 6.0 K/ L 3.5-10.5 (test code = 775) RED BLOOD CELL COUNT (BEAKER) 2.35 M/ L 4.63-6.08 L (test code = 761) HEMOGLOBIN (BEAKER) (test code = 7.7 GM/DL 13.7-17.5 L 410) HEMATOCRIT (BEAKER) (test code = 23.7 % 40.1-51.0 L 411) MEAN CORPUSCULAR VOLUME (BEAKER) 100.9 fL 79.0-92.2 H (test code = 753) MEAN CORPUSCULAR HEMOGLOBIN 32.8 pg 25.7-32.2 H (BEAKER) (test code = 751) MEAN CORPUSCULAR HEMOGLOBIN CONC 32.5 GM/DL 32.3-36.5 (BEAKER) (test code = 752) RED CELL DISTRIBUTION WIDTH 14.7 % 11.6-14.4 H (BEAKER) (test code = 412) PLATELET COUNT (BEAKER) (test code 90 K/CU MM 150-450 L = 756) MEAN PLATELET VOLUME (BEAKER) 9.4 fL 9.4-12.4 (test code = 754) NUCLEATED RED BLOOD CELLS (BEAKER) 1 /100 WBC 0-0 H (test code = 413) POCT-GLUCOSE [id number] 08:03:00 Test Item Value Reference Range Interpretation Comments POC-GLUCOSE METER 89 mg/dL 70-110 TESTED AT [facility] 6720 (BEAKER) (test code = [place] [address] 1538) RAD, CHEST, 1 VIEW, NON [id number] 07:46:00Reason for exam:->Post opShould this be performed at the bedside?->YesFINAL REPORT Chest one view. Clinical history: Post op Comparison: 12/24/2018 Discussion: A frontal chest is provided. Cardiomediastinal contours are unchanged. Stable appearance of pleural-parenchymal opacity at the right mid to lower lung. There is a tiny right apical pneumothorax, unchanged. Probable trace left effusion. Signed: Dionicio Chery Verified Date/Time: 07:46:01 Reading Location: [facility] Radiology Reading Room RAD, ABDOMEN/KUB, 1 VIEW [id number] 07:25:00Reason for exam:->abdominal distentionShould this be performed [...] Chery Verified Date/Time: 12/25/2018 07:25:40 Reading Location: [facility] Radiology Reading Room POCT-GLUCOSE [id number] 22:06:00 Test Item Value Reference Range Interpretation Comments POC-GLUCOSE METER 102 mg/dL 70-110 TESTED AT [place] [address] ([facility]) (test code = [place] [facility] 1538) [id number] POCT-GLUCOSE [id number] 18:44:00 Test Item Value Reference Range Interpretation Comments POC-GLUCOSE METER 100 mg/dL 70-110 TESTED AT [place] [address] ([facility]) (test code = [place] [facility] 1538) [id number] POCT-GLUCOSE [id number] 14:54:00 Test Item Value Reference Range Interpretation Comments POC-GLUCOSE METER 103 mg/dL 70-110 TESTED AT [place] [address] ([facility]) (test code = [place] [facility] 1538) [id number] 08:07:00 Test Item Value Reference Range Interpretation Comments FERRITIN ([facility]) (test code = 2044 ng/mL 5-275 H 361) POCT-GLUCOSE [id number] 07:57:00 Test Item Value Reference Range Interpretation Comments POC-GLUCOSE METER 76 mg/dL 70-110 TESTED AT [place] [address] ([facility]) (test code = [place] [facility] [address] 1538) RAD, CHEST, 1 VIEW, NON [id number] 07:57:00Reason for exam:->Post opShould this be performed [...] MDReport Verified Date/Time: 12/24/2018 07:57:06 Reading Location: [facility] Radiology Reading Room CBC (HEMOGRAM ONLY) 2018-12-24 07:23:00 Test Item Value Reference Range Interpretation Comments WHITE BLOOD CELL COUNT (BEAKER) 5.2 K/ L 3.5-10.5 (test code = 775) RED BLOOD CELL COUNT (BEAKER) 2.35 M/ L 4.63-6.08 L (test code = 761) HEMOGLOBIN (BEAKER) (test code = 7.6 GM/DL 13.7-17.5 L 410) HEMATOCRIT (BEAKER) (test code = 24.6 % 40.1-51.0 L 411) MEAN CORPUSCULAR VOLUME (BEAKER) 104.7 fL 79.0-92.2 H (test code = 753) MEAN CORPUSCULAR HEMOGLOBIN 32.3 pg 25.7-32.2 H (BEAKER) (test code = 751) MEAN CORPUSCULAR HEMOGLOBIN CONC 30.9 GM/DL 32.3-36.5 L (BEAKER) (test code = 752) RED CELL DISTRIBUTION WIDTH 14.8 % 11.6-14.4 H (BEAKER) (test code = 412) PLATELET COUNT (BEAKER) (test code 78 K/CU MM 150-450 L = 756) MEAN PLATELET VOLUME (BEAKER) 9.8 fL 9.4-12.4 (test code = 754) NUCLEATED RED BLOOD CELLS (BEAKER) 1 /100 WBC 0-0 H (test code = 413) BASIC METABOLIC [id number] 07:14:00 Test Item Value Reference Range Interpretation Comments SODIUM (BEAKER) 131 meq/L 136-145 L (test code = 381) POTASSIUM (BEAKER) 4.9 meq/L 3.5-5.1 (test code = 379) CHLORIDE (BEAKER) 93 meq/L 98-107 L (test code = 382) CO2 (BEAKER) (test 34 meq/L 22-29 H code = 355) BLOOD UREA NITROGEN 24 mg/dL 7-21 H (BEAKER) (test code = 354) CREATININE (BEAKER) 4.11 mg/dL 0.57-1.25 H (test code = 358) GLUCOSE RANDOM 94 mg/dL 70-105 (BEAKER) (test code = 652) CALCIUM (BEAKER) 8.8 mg/dL 8.4-10.2 (test code = 697) EGFR (BEAKER) (test 18 mL/min/1.73 ESTIMA JAYLA GFR IS code = 1092) sq m NOT ACCURATE CREATININE CLEARANCE IN PREDICTING GLOMERULAR FILTRATION RATE . ESTIMATED GFR I S NOT APPLICABLE FOR DIALYSIS PATIEN TS. [id number] 07:08:00 Test Item Value Reference Range Interpretation Comments MAGNESIUM (BEAKER) (test code = 1.8 mg/dL 1.6-2.6 627) IRON, TIBC, % SAT. (WITHOUT FERRITIN)2018-12-24 07:07:00 Test Item Value Reference Range Interpretation Comments IRON (BEAKER) (test code = 547) 35.0 ug/dL 40.0-160.0 L TOTAL IRON BINDING CAPACITY 150 ug/dL 250-450 L (BEAKER) (test code = 769) IRON % SATURATION (2) (BEAKER) 23 % 20-55 (test code = 2590) PROTHROMBIN [id number] 07:05:00 Test Item Value Reference Range Interpretation Comments PROTIME (BEAKER) (test code = 38.7 seconds 11.7-14.7 H 759) INR (BEAKER) (test code = 370) 3.9 <=5.9 RECOMMENDED COUMADIN/WARFARIN INR THERAPY RANGESSTANDARD DOSE: 2.0 - 3.0 Includes: PROPHYLAXIS forvenous thrombosis, systemic embolization; TREATMENT for venous thrombosis and/or pulmonary embolus.HIGH RISK: Target INR is 2.5-3.5 for patients with mechanical heart valves.POCT-GLUCOSE [id number] 00:26:00 Test Item Value Reference Range Interpretation Comments POC-GLUCOSE METER 86 mg/dL 70-110 TESTED AT [place] [address] ([facility] (test code = [facility] Humberto [facility] [address] 1538) POCT-GLUCOSE [id number] 00:26:00 Test Item Value Reference Range Interpretation Comments POC-GLUCOSE METER 137 mg/dL 70-110 H TESTED AT [place] [address] ([facility] (test code = [facility] 1538) [address] POCT-GLUCOSE [id number] 16:07:00 Test Item Value Reference Range Interpretation Comments POC-GLUCOSE METER 72 mg/dL 70-110 TESTED AT [place] [address] ([facility] (test code = [facility] [address] 1538) POCT-GLUCOSE [id number] 16:07:00 Test Item Value Reference Range Interpretation Comments POC-GLUCOSE METER 61 mg/dL 70-110 L TESTED AT [facility] 6720 (BEAKER) (test code = [place] [facility] [address] 1538) POCT-GLUCOSE [id number] 11:27:00 Test Item Value Reference Range Interpretation Comments POC-GLUCOSE METER 82 mg/dL 70-110 TESTED AT [facility] 6720 (BEAKER) (test code = [place] [facility] [address] 1538) POCT-GLUCOSE [id number] 10:32:00 Test Item Value Reference Range Interpretation Comments POC-GLUCOSE METER 43 mg/dL 70-110 L TESTED AT [facility] 6720 (BEAKER) (test code = [place] [facility] [address] 1538) BASIC METABOLIC [id number] 07:28:00 Test Item Value Reference Range Interpretation Comments SODIUM (BEAKER) 132 meq/L 136-145 L (test code = 381) POTASSIUM (BEAKER) 5.4 meq/L 3.5-5.1 H Specimen slightly (test code = 379) hemolyzed CHLORIDE (BEAKER) 95 meq/L 98-107 L (test code = 382) CO2 (BEAKER) (test 24 meq/L 22-29 code = 355) BLOOD UREA NITROGEN 52 mg/dL 7-21 H (BEAKER) (test code = 354) CREATININE (BEAKER) 5.91 mg/dL 0.57-1.25 H Specimen slightly (test code = 358) hemolyzed GLUCOSE RANDOM 49 mg/dL 70-105 L (BEAKER) (test code = 652) CALCIUM (BEAKER) 9.1 mg/dL 8.4-10.2 (test code = 697) EGFR (BEAKER) (test 12 mL/min/1.73 ESTIMA JAYLA GFR IS code = 1092) sq m NOT ACCURATE CREATININE CLEARANCE IN PREDICTING GLOMERULAR FILTRATION RATE . ESTIMATED GFR I S NOT APPLICABLE FOR DIALYSIS PATIEN TS. [id number] 07:24:00 Test Item Value Reference Range Interpretation Comments MAGNESIUM (BEAKER) 2.0 mg/dL 1.6-2.6 Specimen slightly (test code = 627) hemolyzed [id number] 07:24:00 Test Item Value Reference Range Interpretation Comments PHOSPHORUS (BEAKER) 4.4 mg/dL 2.3-4.7 Specimen slightly (test code = 604) hemolyzed PROTHROMBIN [id number] 07:20:00 Test Item Value Reference Range Interpretation Comments PROTIME (BEAKER) (test code = 57.8 seconds 11.7-14.7 H 759) INR (BEAKER) (test code = 370) 6.8 <=5.9 RECOMMENDED COUMADIN/WARFARIN INR THERAPY RANGESSTANDARD DOSE: 2.0 - 3.0 Includes: PROPHYLAXIS forvenous thrombosis, systemic embolization; TREATMENT for venous thrombosis and/or pulmonary embolus.HIGH RISK: Target INR is 2.5-3.5 for patients with mechanical heart valves.While on warfarin.CBC (HEMOGRAM ONLY) 2018-12-23 07:01:00 Test Item Value Reference Range Interpretation Comments WHITE BLOOD CELL COUNT (BEAKER) 4.6 K/ L 3.5-10.5 (test code = 775) RED BLOOD CELL COUNT (BEAKER) 2.49 M/ L 4.63-6.08 L (test code = 761) HEMOGLOBIN (BEAKER) (test code = 8.2 GM/DL 13.7-17.5 L 410) HEMATOCRIT (BEAKER) (test code = 25.8 % 40.1-51.0 L 411) MEAN CORPUSCULAR VOLUME (BEAKER) 103.6 fL 79.0-92.2 H (test code = 753) MEAN CORPUSCULAR HEMOGLOBIN 32.9 pg 25.7-32.2 H (BEAKER) (test code = 751) MEAN CORPUSCULAR HEMOGLOBIN CONC 31.8 GM/DL 32.3-36.5 L (BEAKER) (test code = 752) RED CELL DISTRIBUTION WIDTH 15.0 % 11.6-14.4 H (BEAKER) (test code = 412) PLATELET COUNT (BEAKER) (test code 79 K/CU MM 150-450 L = 756) MEAN PLATELET VOLUME (BEAKER) 9.6 fL 9.4-12.4 (test code = 754) NUCLEATED RED BLOOD CELLS (BEAKER) 1 /100 WBC 0-0 H (test code = 413) RAD, CHEST, 1 VIEW, NON [id number] 04:22:00Reason for exam:->Post opShould this be performed [...] MDReport Verified Date/Time: 12/23/2018 04:22:43 Reading Location: [facility] C013Y CT Body Reading Room POCT-GLUCOSE [id number] 03:01:00 Test Item Value Reference Range Interpretation Comments POC-GLUCOSE METER 85 mg/dL 70-110 TESTED AT [facility] 6720 (BEAKER) (test code = [place] [facility] [address] 1538) BASIC METABOLIC [id number] 18:52:00 Test Item Value Reference Range Interpretation Comments SODIUM (BEAKER) 133 meq/L 136-145 L (test code = 381) POTASSIUM (BEAKER) 5.2 meq/L 3.5-5.1 H Specimen slightly (test code = 379) hemolyzed CHLORIDE (BEAKER) 94 meq/L 98-107 L (test code = 382) CO2 (BEAKER) (test 26 meq/L 22-29 code = 355) BLOOD UREA NITROGEN 43 mg/dL 7-21 H (BEAKER) (test code = 354) CREATININE (BEAKER) 5.20 mg/dL 0.57-1.25 H Specimen slightly (test code = 358) hemolyzed GLUCOSE RANDOM 66 mg/dL 70-105 L (BEAKER) (test code = 652) CALCIUM (BEAKER) 9.5 mg/dL 8.4-10.2 (test code = 697) EGFR (BEAKER) (test 14 mL/min/1.73 ESTIMA JAYLA GFR IS code = 1092) sq m NOT ACCURATE CREATININE CLEARANCE IN PREDICTING GLOMERULAR FILTRATION RATE . ESTIMATED GFR I S NOT APPLICABLE FOR DIALYSIS PATIEN TS. CBC (HEMOGRAM ONLY)2018-12-22 17:50:00 Test Item Value Reference Range Interpretation Comments WHITE BLOOD CELL COUNT (BEAKER) 4.8 K/ L 3.5-10.5 (test code = 775) RED BLOOD CELL COUNT (BEAKER) 2.88 M/ L 4.63-6.08 L (test code = 761) HEMOGLOBIN (BEAKER) (test code = 9.4 GM/DL 13.7-17.5 L 410) HEMATOCRIT (BEAKER) (test code = 30.2 % 40.1-51.0 L 411) MEAN CORPUSCULAR VOLUME (BEAKER) 104.9 fL 79.0-92.2 H (test code = 753) MEAN CORPUSCULAR HEMOGLOBIN 32.6 pg 25.7-32.2 H (BEAKER) (test code = 751) MEAN CORPUSCULAR HEMOGLOBIN CONC 31.1 GM/DL 32.3-36.5 L (BEAKER) (test code = 752) RED CELL DISTRIBUTION WIDTH 15.1 % 11.6-14.4 H (BEAKER) (test code = 412) PLATELET COUNT (BEAKER) (test 115 K/CU MM 150-450 L code = 756) MEAN PLATELET VOLUME (BEAKER) 9.9 fL 9.4-12.4 (test code = 754) NUCLEATED RED BLOOD CELLS 1 /100 WBC 0-0 H (BEAKER) (test code = 413) ANAEROBIC [id number] 17:00:00 Test Item Value Reference Range Interpretation Comments CULTURE (BEAKER) (test No anaerobes isolated code = 1095) RAD, CHEST, 1 VIEW, NON [id number] 07:44:00Reason for exam:->Post opShould this be performed [...] the doctor. Signed: Katherine Arteaga Verified Date/Time: 12/22/2018 07:44:12 Reading Location: [facility] Radiology Reading Room PROTHROMBIN [id number] 04:31:00 Test Item Value Reference Range Interpretation Comments PROTIME ([facility]) (test code = 63.0 seconds 11.7-14.7 H 759) INR ([facility]) (test code = 370) 7.6 <=5.9 RECOMMENDED COUMADIN/WARFARIN INR THERAPY RANGESSTANDARD DOSE: 2.0 - 3.0 Includes: PROPHYLAXIS forvenous thrombosis, systemic embolization; TREATMENT for venous thrombosis and/or pulmonary embolus.HIGH RISK: Target INR is 2.5-3.5 for patients with mechanical heart valves.While on warfarin.POCT-GLUCOSE METER 2018-12-21 22:29:00 Test Item Value Reference Range Interpretation Comments POC-GLUCOSE METER 141 mg/dL 70-110 H TESTED AT [place] [address] ([facility]) (test code = [place] [facility] 1538) [address] POCT-GLUCOSE [id number] 13:22:00 Test Item Value Reference Range Interpretation Comments POC-GLUCOSE METER 100 mg/dL 70-110 TESTED AT [place] [address] ([facility]) (test code = [place] [facility] 1538) [address] RAD, CHEST, 1 VIEW, NON [id number] 08:01:00Reason for exam:->Post opShould this be performed [...] contours. Stable surgical changes.Additional findings: None. Signed: Sloan, Radha MDReport Verified Date/Time: 12/21/2018 08:01:46 Reading Location: [facility] C0[facility] Neuro Reading Room PROTHROMBIN [id number] 05:30:00 Test Item Value Reference Range Interpretation Comments PROTIME (BEAKER) (test code = 39.1 seconds 11.7-14.7 H 759) INR (BEAKER) (test code = 370) 4.0 <=5.9 RECOMMENDED COUMADIN/WARFARIN INR THERAPY RANGESSTANDARD DOSE: 2.0 - 3.0 Includes: PROPHYLAXIS forvenous thrombosis, systemic embolization; TREATMENT for venous thrombosis and/or pulmonary embolus.HIGH RISK: Target INR is 2.5-3.5 for patients with mechanical heart valves.While on warfarin.POCT-GLUCOSE METER 2018-12-20 22:10:00 Test Item Value Reference Range Interpretation Comments POC-GLUCOSE METER 98 mg/dL 70-110 TESTED AT [place] [address] ([facility]) (test code = [facility] [address] 1538) POCT-GLUCOSE [id number] 17:40:00 Test Item Value Reference Range Interpretation Comments POC-GLUCOSE METER 91 mg/dL 70-110 TESTED AT [place] [address] ([facility]) (test code = [facility] [address] 1538) POCT-GLUCOSE [id number] 13:13:00 Test Item Value Reference Range Interpretation Comments POC-GLUCOSE METER 73 mg/dL 70-110 TESTED AT [place] [address] ([facility]) (test code = [facility] [address] 1538) SURGICALLY OBTAINED CULTURE + GRAM [id number] 08:41:00 Test Item Value Reference Range Interpretation Comments CULTURE (BEAKER) (test No growth code = 1095) GRAM STAIN RESULT No White blood cells (BEAKER) (test code = seen 1123) GRAM STAIN RESULT No organisms seen (AKER) (test code = 72376) RAD, CHEST, 1 VIEW, NON [id number] 08:20:00Reason for exam:->Post opShould this be performed [...] MDReport Verified Date/Time: 12/20/2018 08:20:58 Reading Location: [facility] C013V Neuro Reading Room BASIC METABOLIC [id number] 08:09:00 Test Item Value Reference Range Interpretation Comments SODIUM (BEAKER) 132 meq/L 136-145 L (test code = 381) POTASSIUM (BEAKER) 4.6 meq/L 3.5-5.1 (test code = 379) CHLORIDE (BEAKER) 95 meq/L 98-107 L (test code = 382) CO2 (BEAKER) (test 28 meq/L 22-29 code = 355) BLOOD UREA NITROGEN 35 mg/dL 7-21 H (BEAKER) (test code = 354) CREATININE (BEAKER) 4.94 mg/dL 0.57-1.25 H (test code = 358) GLUCOSE RANDOM 122 mg/dL 70-105 H (BEAKER) (test code = 652) CALCIUM (BEAKER) 9.2 mg/dL 8.4-10.2 (test code = 697) EGFR (BEAKER) (test 15 mL/min/1.73 ESTIMA JAYLA GFR IS code = 1092) sq m NOT ACCURATE CREATININE CLEARANCE IN PREDICTING GLOMERULAR FILTRATION RATE . ESTIMATED GFR I S NOT APPLICABLE FOR DIALYSIS PATIEN TS. [id number] 08:00:00 Test Item Value Reference Range Interpretation Comments PHOSPHORUS (BEAKER) (test code = 4.5 mg/dL 2.3-4.7 604) CALCIUM, [id number] 07:20:00 Test Item Value Reference Range Interpretation Comments CALCIUM IONIZED (BEAKER) (test 1.04 mmol/L 1.12-1.27 L code = 698) PH, BLOOD (BEAKER) (test code = 7.35 1810) PROTHROMBIN [id number] 07:04:00 Test Item Value Reference Range Interpretation Comments PROTIME (BEAKER) (test code = 21.1 seconds 11.7-14.7 H 759) INR (BEAKER) (test code = 370) 1.8 <=5.9 RECOMMENDED COUMADIN/WARFARIN INR THERAPY RANGESSTANDARD DOSE: 2.0 - 3.0 Includes: PROPHYLAXIS forvenous thrombosis, systemic embolization; TREATMENT for venous thrombosis and/or pulmonary embolus.HIGH RISK: Target INR is 2.5-3.5 for patients with mechanical heart valves.While on warfarin.CBC (HEMOGRAM ONLY) 2018-12-20 06:55:00 Test Item Value Reference Range Interpretation Comments WHITE BLOOD CELL COUNT (BEAKER) 9.4 K/ L 3.5-10.5 (test code = 775) RED BLOOD CELL COUNT (BEAKER) 2.65 M/ L 4.63-6.08 L (test code = 761) HEMOGLOBIN (BEAKER) (test code = 8.8 GM/DL 13.7-17.5 L 410) HEMATOCRIT (BEAKER) (test code = 27.5 % 40.1-51.0 L 411) MEAN CORPUSCULAR VOLUME (BEAKER) 103.8 fL 79.0-92.2 H (test code = 753) MEAN CORPUSCULAR HEMOGLOBIN 33.2 pg 25.7-32.2 H (BEAKER) (test code = 751) MEAN CORPUSCULAR HEMOGLOBIN CONC 32.0 GM/DL 32.3-36.5 L (BEAKER) (test code = 752) RED CELL DISTRIBUTION WIDTH 15.4 % 11.6-14.4 H (BEAKER) (test code = 412) PLATELET COUNT (BEAKER) (test 118 K/CU MM 150-450 L code = 756) MEAN PLATELET VOLUME (BEAKER) 9.7 fL 9.4-12.4 (test code = 754) NUCLEATED RED BLOOD CELLS 0 /100 WBC 0-0 (BEAKER) (test code = 413) POCT-GLUCOSE [id number] 22:00:00 Test Item Value Reference Range Interpretation Comments POC-GLUCOSE METER 188 mg/dL 70-110 H TESTED AT [facility] 6720 (BEAKER) (test code = [facility] 1538) [address] TISSUE [id number] 18:15:00Surgical Pathology Report Case: [id number] Authorizing Provider: Moiz Vargas, Collected: 12/17/2018 0950 Ordering Location: [facility] Received: 12/17/2018 1129 PERIOPERATIVE SERVICES Pathologist: Kwan Perla MD Specimen: Pleural, Right, RIGHT PLEURAL PEEL PLEURA, RIGHT, DECORTICATION- MILD CHRONIC INFLAMMATION AND GRANULATION TISSUE- ORGANIZING BLOOD CLOTS- NO MALIGNANT CELLS IDENTIFIED Signing Pathologist Direct Phone Line: [phone] signed by Kwan Perla MD on 12/19/2018 at 6:15 PMCorrelation with microbiology cultures is recommended.[id number] effusion and other conditions classified elsewhereRight pleural peelThe specimen is received in a formalin-filled container labeled with the patient's information and labeled "right pleural peel" and consists of multiple fragments of porter-red, dusky, firm tissue measuring 6 x 5 x 0.4 cm in aggregate. Special Client [employer] Driver sections are submitted in A1-A3. CG/ew Performed.POCT-GLUCOSE [id number] 17:11:00 Test Item Value Reference Range Interpretation Comments POC-GLUCOSE METER 126 mg/dL 70-110 H TESTED AT [place] [id number] ([facility]) (test code = FOSTER Paul [facility] 1538) [id number] POCT-GLUCOSE [id number] 12:57:00 Test Item Value Reference Range Interpretation Comments POC-GLUCOSE METER 143 mg/dL 70-110 H TESTED AT [place] [address] ([facility]) (test code = [facility] 1538) [id number] POCT-GLUCOSE [id number] 07:27:00 Test Item Value Reference Range Interpretation Comments POC-GLUCOSE METER 141 mg/dL 70-110 H TESTED AT [place] [address] ([facility]) (test code = [facility] 1538) [address] CALCIUM, [id number] 06:29:00 Test Item Value Reference Range Interpretation Comments CALCIUM IONIZED ([facility]) (test 1.00 mmol/L 1.12-1.27 L code = 698) PH, BLOOD ([facility]) (test code = 7.45 1810) RAD, CHEST, 1 VIEW, NON [id number] 04:54:00Reason for exam:->Post opShould this be performed [...] are median sternotomy wires. Signed: Raz Taylor MDReport Verified Date/Time: 2018 04:54:49 Reading Location: [facility] C013Y CT Body Reading Room BASIC METABOLIC [id number] 04:19:00 Test Item Value Reference Range Interpretation Comments SODIUM (BEAKER) 132 meq/L 136-145 L (test code = 381) POTASSIUM (BEAKER) 4.0 meq/L 3.5-5.1 (test code = 379) CHLORIDE (BEAKER) 96 meq/L 98-107 L (test code = 382) CO2 (BEAKER) (test 28 meq/L 22-29 code = 355) BLOOD UREA NITROGEN 18 mg/dL 7-21 (BEAKER) (test code = 354) CREATININE (BEAKER) 3.49 mg/dL 0.57-1.25 H (test code = 358) GLUCOSE RANDOM 139 mg/dL 70-105 H (BEAKER) (test code = 652) CALCIUM (BEAKER) 8.9 mg/dL 8.4-10.2 (test code = 697) EGFR (BEAKER) (test 22 mL/min/1.73 ESTIMA JAYLA GFR IS code = 1092) sq m NOT ACCURATE CREATININE CLEARANCE IN PREDICTING GLOMERULAR FILTRATION RATE . ESTIMATED GFR I S NOT APPLICABLE FOR DIALYSIS PATIEN TS. [id number] 04:16:00 Test Item Value Reference Range Interpretation Comments PHOSPHORUS (BEAKER) (test code = 3.4 mg/dL 2.3-4.7 604) PROTHROMBIN TIME/[id number] 04:06:00 Test Item Value Reference Range Interpretation Comments PROTIME (BEAKER) (test code = 20.9 seconds 11.7-14.7 H 759) INR (BEAKER) (test code = 370) 1.8 <=5.9 RECOMMENDED COUMADIN/WARFARIN INR THERAPY RANGESSTANDARD DOSE: 2.0 - 3.0 Includes: PROPHYLAXIS forvenous thrombosis, systemic embolization; TREATMENT for venous thrombosis and/or pulmonary embolus.HIGH RISK: Target INR is 2.5-3.5 for patients with mechanical heart valves.CBC (HEMOGRAM ONLY)2018-12-19 03:56:00 Test Item Value Reference Range Interpretation Comments WHITE BLOOD CELL COUNT (BEAKER) 9.7 K/ L 3.5-10.5 (test code = 775) RED BLOOD CELL COUNT (BEAKER) 2.56 M/ L 4.63-6.08 L (test code = 761) HEMOGLOBIN (BEAKER) (test code = 8.5 GM/DL 13.7-17.5 L 410) HEMATOCRIT (BEAKER) (test code = 26.3 % 40.1-51.0 L 411) MEAN CORPUSCULAR VOLUME (BEAKER) 102.7 fL 79.0-92.2 H (test code = 753) MEAN CORPUSCULAR HEMOGLOBIN 33.2 pg 25.7-32.2 H (BEAKER) (test code = 751) MEAN CORPUSCULAR HEMOGLOBIN CONC 32.3 GM/DL 32.3-36.5 (BEAKER) (test code = 752) RED CELL DISTRIBUTION WIDTH 15.7 % 11.6-14.4 H (BEAKER) (test code = 412) PLATELET COUNT (BEAKER) (test 114 K/CU MM 150-450 L code = 756) MEAN PLATELET VOLUME (BEAKER) 9.8 fL 9.4-12.4 (test code = 754) NUCLEATED RED BLOOD CELLS 0 /100 WBC 0-0 (BEAKER) (test code = 413) POCT-GLUCOSE [id number] 22:11:00 Test Item Value Reference Range Interpretation Comments POC-GLUCOSE METER 149 mg/dL 70-110 H TESTED AT [place] [id number] ([facility]) [facility] 1538) [id number] POCT-GLUCOSE [id number] 17:52:00 Test Item Value Reference Range Interpretation Comments POC-GLUCOSE METER 122 mg/dL 70-110 H TESTED AT [place] [address] ([facility]) (test code = [facility] Humberto [facility] 1538) [address] POCT-GLUCOSE [id number] 14:26:00 Test Item Value Reference Range Interpretation Comments POC-GLUCOSE METER 98 mg/dL 70-110 TESTED AT [place] [address] ([facility]) (test code = [facility] Humberto [facility] [address] 1538) HEMOGLOBIN AND [id number] 12:47:00 Test Item Value Reference Range Interpretation Comments HEMOGLOBIN (BEAKER) (test code = 9.2 GM/DL 13.7-17.5 L 410) HEMATOCRIT (BEAKER) (test code = 28.3 % 40.1-51.0 L 411) POCT-GLUCOSE [id number] 09:38:00 Test Item Value Reference Range Interpretation Comments POC-GLUCOSE METER 73 mg/dL 70-110 TESTED AT [place] [address] ([facility]) (test code = [facility] [address] 1538) PROTEIN ELECTROPHORESIS, [id number] 09:21:00 Test Item Value Reference Range Interpretation Comments ALBUMIN FRACTION 3.2 g/dL 3.5-5.5 L (BEAKER) (test code = 405) ALPHA 1 FRACTION 0.4 g/dL 0.2-0.4 (BEAKER) (test code = 389) ALPHA 2 FRACTION 0.6 g/dL 0.5-0.9 (BEAKER) (test code = 390) BETA FRACTION (BEAKER) 1.1 g/dL 0.6-1.1 (test code = 392) GAMMA GLOBULIN 2.2 g/dL 0.7-1.7 H FRACTION (BEAKER) (test code = 391) INTERPRETATION-119 Mild polyclonal (BEAKER) (test code = elevation of gamma 2615) fraction, suggesting component of chronic inflammation. No monoclonal bands detected. [id number] Amanda De Jesus MD (BEAKER) (test code = (electronic signature) 6517) PROTEIN TOTAL SERUM, 7.5 gm/dL 6.0-8.3 SPEP (BEAKER) (test code = 2660) RAD, CHEST, 1 VIEW, NON [id number] 06:47:00Reason for exam:->Post opShould this be performed [...] MDReport Verified Date/Time: 12/18/2018 06:47:21 Reading Location: [place] [id number] Body Reading Room [id number] 06:20:00 Test Item Value Reference Range Interpretation Comments MAGNESIUM (BEAKER) (test code = 2.2 mg/dL 1.6-2.6 627) CALCIUM, [id number] 06:00:00 Test Item Value Reference Range Interpretation Comments CALCIUM IONIZED (BEAKER) (test 1.09 mmol/L 1.12-1.27 L code = 698) PH, BLOOD (BEAKER) (test code = 7.34 1810) BASIC METABOLIC [id number] 05:07:00 Test Item Value Reference Range Interpretation Comments SODIUM (BEAKER) 136 meq/L 136-145 (test code = 381) POTASSIUM (BEAKER) 5.0 meq/L 3.5-5.1 (test code = 379) CHLORIDE (BEAKER) 100 meq/L 98-107 (test code = 382) CO2 (BEAKER) (test 25 meq/L 22-29 code = 355) BLOOD UREA NITROGEN 34 mg/dL 7-21 H (BEAKER) (test code = 354) CREATININE (BEAKER) 6.00 mg/dL 0.57-1.25 H (test code = 358) GLUCOSE RANDOM 91 mg/dL 70-105 (BEAKER) (test code = 652) CALCIUM (BEAKER) 9.1 mg/dL 8.4-10.2 (test code = 697) EGFR (BEAKER) (test 12 mL/min/1.73 ESTIMA JAYLA GFR IS code = 1092) sq m NOT ACCURATE CREATININE CLEARANCE IN PREDICTING GLOMERULAR FILTRATION RATE . ESTIMATED GFR I S NOT APPLICABLE FOR DIALYSIS PATIEN TS. [id number] 04:54:00 Test Item Value Reference Range Interpretation Comments PHOSPHORUS (BEAKER) (test code = 6.3 mg/dL 2.3-4.7 H 604) HEPATIC FUNCTION [id number] 04:54:00 Test Item Value Reference Range Interpretation Comments TOTAL PROTEIN (BEAKER) (test code = 6.8 gm/dL 6.0-8.3 770) ALBUMIN (BEAKER) (test code = 1145) 3.1 g/dL 3.5-5.0 L BILIRUBIN TOTAL (BEAKER) (test code 1.0 mg/dL 0.2-1.2 = 377) BILIRUBIN DIRECT (BEAKER) (test 0.8 mg/dL 0.1-0.5 H code = 706) ALKALINE PHOSPHATASE (BEAKER) (test 58 U/L 40-150 code = 346) AST (SGOT) (BEAKER) (test code = 29 U/L 5-34 353) ALT (SGPT) (BEAKER) (test code = 23 U/L 6-55 347) [id number] 04:51:00 Test Item Value Reference Range Interpretation Comments PARTIAL THROMBOPLASTIN TIME 38.6 seconds 22.5-36.0 H (BEAKER) (test code = 760) PROTHROMBIN [id number] 04:50:00 Test Item Value Reference Range Interpretation Comments PROTIME (BEAKER) (test code = 16.0 seconds 11.7-14.7 H 759) INR (BEAKER) (test code = 370) 1.3 <=5.9 RECOMMENDED COUMADIN/WARFARIN INR THERAPY RANGESSTANDARD DOSE: 2.0 - 3.0 Includes: PROPHYLAXIS forvenous thrombosis, systemic embolization; TREATMENT for venous thrombosis and/or pulmonary embolus.HIGH RISK: Target INR is 2.5-3.5 for patients with mechanical heart valves.[id number] 04:50:00 Test Item Value Reference Range Interpretation Comments FIBRINOGEN LEVEL (BEAKER) (test 494 mg/dl 225-434 H code = 658) PLATELET [id number] 04:38:00 Test Item Value Reference Range Interpretation Comments PLATELET COUNT (BEAKER) (test 112 K/CU MM 150-450 L code = 756) CBC (HEMOGRAM ONLY)2018-12-18 04:38:00 Test Item Value Reference Range Interpretation Comments WHITE BLOOD CELL COUNT (BEAKER) 8.8 K/ L 3.5-10.5 (test code = 775) RED BLOOD CELL COUNT (BEAKER) 2.82 M/ L 4.63-6.08 L (test code = 761) HEMOGLOBIN (BEAKER) (test code = 9.2 GM/DL 13.7-17.5 L 410) HEMATOCRIT (BEAKER) (test code = 29.0 % 40.1-51.0 L 411) MEAN CORPUSCULAR VOLUME (BEAKER) 102.8 fL 79.0-92.2 H (test code = 753) MEAN CORPUSCULAR HEMOGLOBIN 32.6 pg 25.7-32.2 H (BEAKER) (test code = 751) MEAN CORPUSCULAR HEMOGLOBIN CONC 31.7 GM/DL 32.3-36.5 L (BEAKER) (test code = 752) RED CELL DISTRIBUTION WIDTH 16.2 % 11.6-14.4 H (BEAKER) (test code = 412) PLATELET COUNT (BEAKER) (test 112 K/CU MM 150-450 L code = 756) MEAN PLATELET VOLUME (BEAKER) 9.4 fL 9.4-12.4 (test code = 754) NUCLEATED RED BLOOD CELLS 0 /100 WBC 0-0 (BEAKER) (test code = 413) [id number] 18:48:00 Test Item Value Reference Range Interpretation Comments MAGNESIUM (BEAKER) (test code = 2.4 mg/dL 1.6-2.6 627) POCT-GLUCOSE [id number] 18:42:00 Test Item Value Reference Range Interpretation Comments POC-GLUCOSE METER 121 mg/dL 70-110 H TESTED AT [facility] 6720 (BEAKER) (test code = [place] 1538) [address] HEMOGLOBIN AND [id number] 18:37:00 Test Item Value Reference Range Interpretation Comments HEMOGLOBIN (BEAKER) (test code = 10.0 GM/DL 13.7-17.5 L 410) HEMATOCRIT (BEAKER) (test code = 31.3 % 40.1-51.0 L 411) RAD, CHEST, 1 VIEW, NON [id number] 13:28:00Reason for exam:->post opShould this be performed [...] MDReport Verified Date/Time: 12/17/2018 13:28:23 Reading Location: [facility] Mammo Reading Room BASI METABOLIC [id number] 13:03:00 Test Item Value Reference Range Interpretation Comments SODIUM (BEAKER) 138 meq/L 136-145 (test code = 381) POTASSIUM (BEAKER) 4.2 meq/L 3.5-5.1 (test code = 379) CHLORIDE (BEAKER) 103 meq/L 98-107 (test code = 382) CO2 (BEAKER) (test 27 meq/L 22-29 code = 355) BLOOD UREA NITROGEN 28 mg/dL 7-21 H (BEAKER) (test code = 354) CREATININE (BEAKER) 4.75 mg/dL 0.57-1.25 H (test code = 358) GLUCOSE RANDOM 118 mg/dL 70-105 H (BEAKER) (test code = 652) CALCIUM (BEAKER) 8.3 mg/dL 8.4-10.2 L (test code = 697) EGFR (BEAKER) (test 15 mL/min/1.73 ESTIMA JAYLA GFR IS code = 1092) sq m NOT ACCURATE CREATININE CLEARANCE IN PREDICTING GLOMERULAR FILTRATION RATE . ESTIMATED GFR I S NOT APPLICABLE FOR DIALYSIS PATIEN TS. [id number] 12:53:00 Test Item Value Reference Range Interpretation Comments PHOSPHORUS (BEAKER) (test code = 4.3 mg/dL 2.3-4.7 604) [id number] 12:53:00 Test Item Value Reference Range Interpretation Comments MAGNESIUM (BEAKER) (test code = 1.5 mg/dL 1.6-2.6 L 627) LACTIC ACID, [id number] 12:50:00 Test Item Value Reference Range Interpretation Comments LACTATE BLOOD ARTERIAL (2) 0.9 mmol/L 0.5-2.2 (BEAKER) (test code = 2874) CBC W/PLT COUNT & AUTO [id number] 12:47:00 Test Item Value Reference Range Interpretation Comments WHITE BLOOD CELL COUNT (BEAKER) 5.0 K/ L 3.5-10.5 (test code = 775) RED BLOOD CELL COUNT (BEAKER) 2.22 M/ L 4.63-6.08 L (test code = 761) HEMOGLOBIN (BEAKER) (test code = 7.5 GM/DL 13.7-17.5 L 410) HEMATOCRIT (BEAKER) (test code = 23.4 % 40.1-51.0 L 411) MEAN CORPUSCULAR VOLUME (BEAKER) 105.4 fL 79.0-92.2 H (test code = 753) MEAN CORPUSCULAR HEMOGLOBIN 33.8 pg 25.7-32.2 H (BEAKER) (test code = 751) MEAN CORPUSCULAR HEMOGLOBIN CONC 32.1 GM/DL 32.3-36.5 L (BEAKER) (test code = 752) RED CELL DISTRIBUTION WIDTH 14.5 % 11.6-14.4 H (BEAKER) (test code = 412) PLATELET COUNT (BEAKER) (test 127 K/CU MM 150-450 L code = 756) MEAN PLATELET VOLUME (BEAKER) 9.8 fL 9.4-12.4 (test code = 754) NUCLEATED RED BLOOD CELLS 0 /100 WBC 0-0 (BEAKER) (test code = 413) NEUTROPHILS RELATIVE PERCENT 73 % (BEAKER) (test code = 429) LYMPHOCYTES RELATIVE PERCENT 15 % (BEAKER) (test code = 430) MONOCYTES RELATIVE PERCENT 10 % (BEAKER) (test code = 431) EOSINOPHILS RELATIVE PERCENT 1 % (BEAKER) (test code = 432) BASOPHILS RELATIVE PERCENT 0 % (BEAKER) (test code = 437) NEUTROPHILS ABSOLUTE COUNT 3.65 K/ L 1.78-5.38 (BEAKER) (test code = 670) LYMPHOCYTES ABSOLUTE COUNT 0.73 K/ L 1.32-3.57 L (BEAKER) (test code = 414) MONOCYTES ABSOLUTE COUNT (BEAKER) 0.50 K/ L 0.30-0.82 (test code = 415) EOSINOPHILS ABSOLUTE COUNT 0.04 K/ L 0.04-0.54 (BEAKER) (test code = 416) BASOPHILS ABSOLUTE COUNT (BEAKER) 0.02 K/ L 0.01-0.08 (test code = 417) IMMATURE GRANULOCYTES-RELATIVE 1 % 0-1 PERCENT (BEAKER) (test code = 2801) CALCIUM, [id number] 12:26:00 Test Item Value Reference Range Interpretation Comments CALCIUM IONIZED (BEAKER) (test 1.07 mmol/L 1.12-1.27 L code = 698) PH, BLOOD (BEAKER) (test code = 7.38 1810) BLOOD GAS, [id number] 12:26:00 Test Item Value Reference Range Interpretation Comments PH ARTERIAL (BEAKER) (test code = 7.39 7.35-7.45 383) PCO2 ARTERIAL (BEAKER) (test code 46 mmHg 35-45 H = 384) PO2 ARTERIAL (BEAKER) (test code = 289 mmHg 80-90 H 385) O2 SATURATION ARTERIAL (BEAKER) 99.7 % 96.0-97.0 H (test code = 386) HCO3 ARTERIAL (BEAKER) (test code 27 mmol/L 21-29 = 388) BASE EXCESS ARTERIAL (BEAKER) 1.4 mmol/L -2.0-3.0 (test code = 387) PATIENT TEMPERATURE (BEAKER) (test 36.8 C code = 1818) FIO2 (BEAKER) (test code = 1819) 40.0 % CALCIUM, [id number] 10:25:00 Test Item Value Reference Range Interpretation Comments CALCIUM IONIZED (BEAKER) (test 1.09 mmol/L 1.12-1.27 L code = 698) PH, BLOOD (BEAKER) (test code = 7.45 1810) BLOOD GAS, [id number] 10:22:00 Test Item Value Reference Range Interpretation Comments PH ARTERIAL (BEAKER) (test code = 7.48 7.35-7.45 H 383) PCO2 ARTERIAL (BEAKER) (test code 34 mmHg 35-45 L = 384) PO2 ARTERIAL (BEAKER) (test code = 391 mmHg 80-90 H 385) O2 SATURATION ARTERIAL (BEAKER) 99.8 % 96.0-97.0 H (test code = 386) HCO3 ARTERIAL (BEAKER) (test code 26 mmol/L 21-29 = 388) BASE EXCESS ARTERIAL (BEAKER) 1.6 mmol/L -2.0-3.0 (test code = 387) PATIENT TEMPERATURE (BEAKER) (test 34.9 C code = 1818) FIO2 (BEAKER) (test code = 1819) 96.0 % SODIUM NA-STAT [id number] 10:22:00 Test Item Value Reference Range Interpretation Comments SODIUM (BEAKER) (test code = 381) 133 meq/L 135-148 L GLUCOSE-STAT [id number] 10:22:00 Test Item Value Reference Range Interpretation Comments GLUCOSE RANDOM (BEAKER) (test code 116 mg/dL 70-110 H = 652) HGB/HCT (H&H) - STAT [id number] 10:22:00 Test Item Value Reference Range Interpretation Comments HEMOGLOBIN (BEAKER) (test code = 8.9 g/dL 13.0-16.8 L 410) HEMATOCRIT (BEAKER) (test code = 26.0 % 40.0-50.0 L 411) POTASSIUM-STAT [id number] 10:20:00 Test Item Value Reference Range Interpretation Comments POTASSIUM (BEAKER) (test code = 4.0 meq/L 3.6-5.5 379) HEMOGLOBIN [id number] 09:33:00 Test Item Value Reference Range Interpretation Comments HEMOGLOBIN A1C (BEAKER) (test code = 5.9 % 4.3-6.1 368) BLOOD GAS, [id number] 09:27:00 Test Item Value Reference Range Interpretation Comments PH ARTERIAL (BEAKER) (test code = 7.44 7.35-7.45 383) PCO2 ARTERIAL (BEAKER) (test code 42 mmHg 35-45 = 384) PO2 ARTERIAL (BEAKER) (test code = 262 mmHg 80-90 H 385) O2 SATURATION ARTERIAL (BEAKER) 99.6 % 96.0-97.0 H (test code = 386) HCO3 ARTERIAL (BEAKER) (test code 28 mmol/L 21-29 = 388) BASE EXCESS ARTERIAL (BEAKER) 3.0 mmol/L -2.0-3.0 (test code = 387) PATIENT TEMPERATURE (BEAKER) (test 37.0 C code = 1818) FIO2 (BEAKER) (test code = 1819) 100.0 % SODIUM NA-STAT [id number] 09:27:00 Test Item Value Reference Range Interpretation Comments SODIUM (BEAKER) (test code = 381) 133 meq/L 135-148 L HGB/HCT (H&H) - STAT [id number] 09:27:00 Test Item Value Reference Range Interpretation Comments HEMOGLOBIN (BEAKER) (test code = 9.4 g/dL 13.0-16.8 L 410) HEMATOCRIT (BEAKER) (test code = 28.0 % 40.0-50.0 L 411) GLUCOSE-STAT [id number] 09:26:00 Test Item Value Reference Range Interpretation Comments GLUCOSE RANDOM (BEAKER) (test code = 97 mg/dL 70-110 652) POTASSIUM-STAT [id number] 09:26:00 Test Item Value Reference Range Interpretation Comments POTASSIUM (BEAKER) (test code = 3.9 meq/L 3.6-5.5 379) CALCIUM, [id number] 09:26:00 Test Item Value Reference Range Interpretation Comments CALCIUM IONIZED (BEAKER) (test 1.17 mmol/L 1.12-1.27 code = 698) PH, BLOOD (BEAKER) (test code = 7.44 1810) BLOOD GAS, [id number] 08:32:00 Test Item Value Reference Range Interpretation Comments PH ARTERIAL (BEAKER) (test code = 7.52 7.35-7.45 H 383) PCO2 ARTERIAL (BEAKER) (test code 34 mmHg 35-45 L = 384) PO2 ARTERIAL (BEAKER) (test code = 310 mmHg 80-90 H 385) O2 SATURATION ARTERIAL (BEAKER) 99.8 % 96.0-97.0 H (test code = 386) HCO3 ARTERIAL (BEAKER) (test code 28 mmol/L 21-29 = 388) BASE EXCESS ARTERIAL (BEAKER) 4.2 mmol/L -2.0-3.0 H (test code = 387) PATIENT TEMPERATURE (BEAKER) (test 35.4 C code = 1818) FIO2 (BEAKER) (test code = 1819) 96.0 % SODIUM NA-STAT [id number] 08:32:00 Test Item Value Reference Range Interpretation Comments SODIUM (BEAKER) (test code = 381) 133 meq/L 135-148 L GLUCOSE-STAT [id number] 08:32:00 Test Item Value Reference Range Interpretation Comments GLUCOSE RANDOM (BEAKER) (test code 113 mg/dL 70-110 H = 652) HGB/HCT (H&H) - STAT [id number] 08:32:00 Test Item Value Reference Range Interpretation Comments HEMOGLOBIN (BEAKER) (test code = 9.9 g/dL 13.0-16.8 L 410) HEMATOCRIT (BEAKER) (test code = 29.0 % 40.0-50.0 L 411) CALCIUM, [id number] 08:31:00 Test Item Value Reference Range Interpretation Comments CALCIUM IONIZED (BEAKER) (test 1.05 mmol/L 1.12-1.27 L code = 698) PH, BLOOD (BEAKER) (test code = 7.49 1810) POTASSIUM-STAT [id number] 08:29:00 Test Item Value Reference Range Interpretation Comments POTASSIUM (BEAKER) (test code = 3.6 meq/L 3.6-5.5 379) POCT-GLUCOSE [id number] 06:20:00 Test Item Value Reference Range Interpretation Comments POC-GLUCOSE METER 99 mg/dL 70-110 TESTED AT [facility] 6720 (BEAKER) (test code = [place] [address] 1538) [id number] 05:05:00 Test Item Value Reference Range Interpretation Comments PARTIAL THROMBOPLASTIN TIME 75.6 seconds 22.5-36.0 H (JARROD) (test code = 760) LIPID [id number] 05:04:00 Test Item Value Reference Range Interpretation Comments TRIGLYCERIDES (JARROD) (test code = 53 mg/dL 540) CHOLESTEROL (JARROD) (test code = 122 mg/dL 631) HDL CHOLESTEROL (ZOILA) (test code 58 mg/dL = 976) LDL CHOLESTEROL CALCULATED ([facility]) 53 mg/dL (test code = 633) Triglyceride Reference Range: Low Risk <150 Borderline 150-199 High Risk 200-499 Very High Risk >=500Cholesterol Reference Range: Low Risk <200 Borderline 200-239 High Risk >240HDL Cholesterol Reference Range: Low Risk >=60 High Risk <40LDL Cholesterol Reference Range: Optimal <100 Near Optimal 100-129 Borderline 130-159 High 160-189 Very High >=190PROTHROMBIN [id number] 05:03:00 Test Item Value Reference Range Interpretation Comments PROTIME (JARROD) (test code = 15.4 seconds 11.7-14.7 H 759) INR ([facility]) (test code = 370) 1.2 <=5.9 RECOMMENDED COUMADIN/WARFARIN INR THERAPY RANGESSTANDARD DOSE: 2.0 - 3.0 Includes: PROPHYLAXIS forvenous thrombosis, systemic embolization; TREATMENT for venous thrombosis and/or pulmonary embolus.HIGH RISK: Target INR is 2.5-3.5 for patients with mechanical heart valves.POCT-GLUCOSE [id number] 21:17:00 Test Item Value Reference Range Interpretation Comments POC-GLUCOSE METER 223 mg/dL 70-110 H TESTED AT [facility] 6720 ([facility]) (test code = [place] [facility] 1538) [address] COMPREHENSIVE METABOLIC [id number] 18:57:00 Test Item Value Reference Range Interpretation Comments TOTAL PROTEIN 7.8 gm/dL 6.0-8.3 (JARROD) (test code = 770) ALBUMIN ([facility]) 3.1 g/dL 3.5-5.0 L (test code = 1145) ALKALINE PHOSPHATASE 80 U/L 40-150 (BEAKER) (test code = 346) BILIRUBIN TOTAL 0.9 mg/dL 0.2-1.2 (BEAKER) (test code = 377) SODIUM (BEAKER) (test 136 meq/L 136-145 code = 381) POTASSIUM (BEAKER) 3.9 meq/L 3.5-5.1 (test code = 379) CHLORIDE (BEAKER) 98 meq/L 98-107 (test code = 382) CO2 (BEAKER) (test 30 meq/L 22-29 H code = 355) BLOOD UREA NITROGEN 19 mg/dL 7-21 (BEAKER) (test code = 354) CREATININE (BEAKER) 3.98 mg/dL 0.57-1.25 H (test code = 358) GLUCOSE RANDOM 159 mg/dL 70-105 H (BEAKER) (test code = 652) CALCIUM (BEAKER) 8.9 mg/dL 8.4-10.2 (test code = 697) AST (SGOT) (BEAKER) 25 U/L 5-34 (test code = 353) ALT (SGPT) (BEAKER) 28 U/L 6-55 (test code = 347) EGFR (BEAKER) (test 19 mL/min/1.73 ESTIMA JAYLA GFR IS code = 1092) sq m NOT ACCURATE CREATININE CLEARANCE IN PREDICTING GLOMERULAR FILTRATION RATE . ESTIMATED GFR I S NOT APPLICABLE FOR DIALYSIS PATIEN TS. [id number] 18:46:00 Test Item Value Reference Range Interpretation Comments MAGNESIUM (BEAKER) (test code = 1.8 mg/dL 1.6-2.6 627) CBC W/PLT COUNT & AUTO [id number] 18:10:00 Test Item Value Reference Range Interpretation Comments WHITE BLOOD CELL COUNT (BEAKER) 6.2 K/ L 3.5-10.5 (test code = 775) RED BLOOD CELL COUNT (BEAKER) 3.32 M/ L 4.63-6.08 L (test code = 761) HEMOGLOBIN (BEAKER) (test code = 11.0 GM/DL 13.7-17.5 L 410) HEMATOCRIT (BEAKER) (test code = 34.4 % 40.1-51.0 L 411) MEAN CORPUSCULAR VOLUME (BEAKER) 103.6 fL 79.0-92.2 H (test code = 753) MEAN CORPUSCULAR HEMOGLOBIN 33.1 pg 25.7-32.2 H (BEAKER) (test code = 751) MEAN CORPUSCULAR HEMOGLOBIN CONC 32.0 GM/DL 32.3-36.5 L (BEAKER) (test code = 752) RED CELL DISTRIBUTION WIDTH 14.9 % 11.6-14.4 H (BEAKER) (test code = 412) PLATELET COUNT (BEAKER) (test code 77 K/CU MM 150-450 L = 756) MEAN PLATELET VOLUME (BEAKER) 10.2 fL 9.4-12.4 (test code = 754) NUCLEATED RED BLOOD CELLS (BEAKER) 0 /100 WBC 0-0 (test code = 413) NEUTROPHILS RELATIVE PERCENT 71 % (BEAKER) (test code = 429) LYMPHOCYTES RELATIVE PERCENT 13 % (BEAKER) (test code = 430) MONOCYTES RELATIVE PERCENT 14 % (BEAKER) (test code = 431) EOSINOPHILS RELATIVE PERCENT 1 % (BEAKER) (test code = 432) BASOPHILS RELATIVE PERCENT 1 % (BEAKER) (test code = 437) NEUTROPHILS ABSOLUTE COUNT 4.39 K/ L 1.78-5.38 (BEAKER) (test code = 670) LYMPHOCYTES ABSOLUTE COUNT 0.82 K/ L 1.32-3.57 L (BEAKER) (test code = 414) MONOCYTES ABSOLUTE COUNT (BEAKER) 0.84 K/ L 0.30-0.82 H (test code = 415) EOSINOPHILS ABSOLUTE COUNT 0.05 K/ L 0.04-0.54 (BEAKER) (test code = 416) BASOPHILS ABSOLUTE COUNT (BEAKER) 0.03 K/ L 0.01-0.08 (test code = 417) IMMATURE GRANULOCYTES-RELATIVE 1 % 0-1 PERCENT (BEAKER) (test code = 2801) POCT-GLUCOSE [id number] 17:34:00 Test Item Value Reference Range Interpretation Comments POC-GLUCOSE METER 169 mg/dL 70-110 H TESTED AT [facility] 6720 (BEAKER) (test code = [place] 1538) [address] HEPARIN [id number] 13:40:00 Test Item Value Reference Range Interpretation Comments HEPARIN ANTIBODY (BEAKER) (test code Negative Negative = 646) HEPARIN ANTIBODY OD (BEAKER) (test 0.105 <0.400 code = 2659) 4T TOTAL SCORE ([facility]) (test code = 4 2661) Probability of HIT based on scoring system: 6-8 = High probability; 4-5 = intermediate probability;0-3 = low probabilityPOCT-GLUCOSE [id number] 12:51:00 Test Item Value Reference Range Interpretation Comments POC-GLUCOSE METER 66 mg/dL 70-110 L Notified R Toy PÉREZ/TESTED AT ([facility]) (test code = [place] [address] [address]TONIO 1538) [facility] 7703 0 POCT-GLUCOSE [id number] 07:54:00 Test Item Value Reference Range Interpretation Comments POC-GLUCOSE METER 75 mg/dL 70-110 TESTED AT [place] [address] ([facility]) (test code = [place]ER [place] [facility] [address]) [id number] 04:21:00 Test Item Value Reference Range Interpretation Comments PROTIME ([facility]) (test code = 15.4 seconds 11.7-14.7 H 759) INR ([facility]) (test code = 370) 1.2 <=5.9 PARTIAL THROMBOPLASTIN TIME 74.0 seconds 22.5-36.0 H ([facility]) (test code = 760) RECOMMENDED COUMADIN/WARFARIN INR THERAPY RANGESSTANDARD DOSE: 2.0 - 3.0 Includes: PROPHYLAXIS forvenous thrombosis, systemic embolization; TREATMENT for venous thrombosis and/or pulmonary embolus.HIGH RISK: Target INR is 2.5-3.5 for patients with mechanical heart valves.[id number] 04:20:00 Test Item Value Reference Range Interpretation Comments FIBRINOGEN LEVEL ([facility]) (test 525 mg/dl 225-434 H code = 658) POCT-GLUCOSE [id number] 21:25:00 Test Item Value Reference Range Interpretation Comments POC-GLUCOSE METER 129 mg/dL 70-110 H TESTED AT [place] [address] ([facility]) (test code = [place] [facility] 1538) [id number] 18:23:00 Test Item Value Reference Range Interpretation Comments PARTIAL THROMBOPLASTIN TIME 72.0 seconds 22.5-36.0 H ([facility]) (test code = 760) POCT-GLUCOSE [id number] 16:20:00 Test Item Value Reference Range Interpretation Comments POC-GLUCOSE METER 142 mg/dL 70-110 H TESTED AT [place] [address] ([facility]) (test code = FOSTER Paul [place] 1538) [address] POCT-GLUCOSE [id number] 13:05:00 Test Item Value Reference Range Interpretation Comments POC-GLUCOSE METER 86 mg/dL 70-110 TESTED AT [place] [address] ([facility]) (test code = [place] [facility] [address] 1538) [id number] 11:19:00 Test Item Value Reference Range Interpretation Comments PARTIAL THROMBOPLASTIN TIME 72.3 seconds 22.5-36.0 H ([facility]) (test code = 760) POCT-GLUCOSE [id number] 07:56:00 Test Item Value Reference Range Interpretation Comments POC-GLUCOSE METER 87 mg/dL 70-110 TESTED AT [place] [address] ([facility]) (test code = FOSTER Paul [facility] [address]38) [id number] 03:13:00 Test Item Value Reference Range Interpretation Comments PARTIAL THROMBOPLASTIN TIME 97.1 seconds 22.5-36.0 H ([facility]) (test code = 760) PROTHROMBIN [id number] 03:11:00 Test Item Value Reference Range Interpretation Comments PROTIME ([facility]) (test code = 16.5 seconds 11.7-14.7 H 759) INR ([facility]) (test code = 370) 1.3 <=5.9 RECOMMENDED COUMADIN/WARFARIN INR THERAPY RANGESSTANDARD DOSE: 2.0 - 3.0 Includes: PROPHYLAXIS forvenous thrombosis, systemic embolization; TREATMENT for venous thrombosis and/or pulmonary embolus.HIGH RISK: Target INR is 2.5-3.5 for patients with mechanical heart valves.CBC (HEMOGRAM ONLY)2018-12-15 02:42:00 Test Item Value Reference Range Interpretation Comments WHITE BLOOD CELL COUNT ([facility]) 6.9 K/ L 3.5-10.5 (test code = 775) RED BLOOD CELL COUNT (AKER) 3.13 M/ L 4.63-6.08 L (test code = 761) HEMOGLOBIN (AKER) (test code = 10.6 GM/DL 13.7-17.5 L 410) HEMATOCRIT ([facility]) (test code = 32.4 % 40.1-51.0 L 411) MEAN CORPUSCULAR VOLUME (AKER) 103.5 fL 79.0-92.2 H (test code = 753) MEAN CORPUSCULAR HEMOGLOBIN 33.9 pg 25.7-32.2 H ([facility]) (test code = 751) MEAN CORPUSCULAR HEMOGLOBIN CONC 32.7 GM/DL 32.3-36.5 ([facility]) (test code = 752) RED CELL DISTRIBUTION WIDTH 14.9 % 11.6-14.4 H ([facility]) (test code = 412) PLATELET COUNT ([facility]) (test code 77 K/CU MM 150-450 L = 756) MEAN PLATELET VOLUME (AKER) 8.9 fL 9.4-12.4 L (test code = 754) NUCLEATED RED BLOOD CELLS ([facility]) 0 /100 WBC 0-0 (test code = 413) POCT-GLUCOSE [id number] 21:26:00 Test Item Value Reference Range Interpretation Comments POC-GLUCOSE METER 121 mg/dL 70-110 H TESTED AT [place] [address] ([facility]) (test code = [place] [facility] 1538) [id number] 19:05:00 Test Item Value Reference Range Interpretation Comments PARTIAL THROMBOPLASTIN TIME 64.0 seconds 22.5-36.0 H ([facility]) (test code = 760) POCT-GLUCOSE [id number] 17:24:00 Test Item Value Reference Range Interpretation Comments POC-GLUCOSE METER 131 mg/dL 70-110 H TESTED AT [place] [address] ([facility]) (test code = [place] 1538) [address] [id number] 13:32:00 Test Item Value Reference Range Interpretation Comments PARTIAL THROMBOPLASTIN TIME 81.4 seconds 22.5-36.0 H ([facility]) (test code = 760) POCT-GLUCOSE [id number] 12:32:00 Test Item Value Reference Range Interpretation Comments POC-GLUCOSE METER 102 mg/dL 70-110 TESTED AT [place] [address] ([facility]) (test code = [place] 1538) [address] POCT-GLUCOSE [id number] 07:07:00 Test Item Value Reference Range Interpretation Comments POC-GLUCOSE METER 113 mg/dL 70-110 H TESTED AT [place] [address] ([facility]) (test code = [place] [facility] 1538) [id number] [id number] 05:47:00 Test Item Value Reference Range Interpretation Comments PARTIAL THROMBOPLASTIN TIME 91.8 seconds 22.5-36.0 H ([facility]) (test code = 760) POCT-GLUCOSE [id number] 21:27:00 Test Item Value Reference Range Interpretation Comments POC-GLUCOSE METER 90 mg/dL 70-110 TESTED AT [place] [address] ([facility]) (test code = [place] [facility] [address] 1538) POCT-GLUCOSE [id number] 17:46:00 Test Item Value Reference Range Interpretation Comments POC-GLUCOSE METER 175 mg/dL 70-110 H TESTED AT [place] [address] ([facility]) (test code = [facility] H[place]to [facility] 1538) [id number] POCT-GLUCOSE [id number] 17:30:00 Test Item Value Reference Range Interpretation Comments POC-GLUCOSE METER 84 mg/dL 70-110 TESTED AT [place] [address] ([facility]) (test code = [facility] [place]to [facility] [id number] 1538) [id number] 13:20:00 Test Item Value Reference Range Interpretation Comments PARTIAL THROMBOPLASTIN TIME 68.4 seconds 22.5-36.0 H ([facility]) (test code = 760) BASIC METABOLIC [id number] 10:36:00 Test Item Value Reference Range Interpretation Comments SODIUM (BEAKER) 133 meq/L 136-145 L (test code = 381) POTASSIUM (BEAKER) 4.4 meq/L 3.5-5.1 (test code = 379) CHLORIDE (BEAKER) 98 meq/L 98-107 (test code = 382) CO2 (BEAKER) (test 25 meq/L 22-29 code = 355) BLOOD UREA NITROGEN 38 mg/dL 7-21 H (BEAKER) (test code = 354) CREATININE (BEAKER) 6.36 mg/dL 0.57-1.25 H (test code = 358) GLUCOSE RANDOM 94 mg/dL 70-105 (BEAKER) (test code = 652) CALCIUM (BEAKER) 8.8 mg/dL 8.4-10.2 (test code = 697) EGFR (BEAKER) (test 11 mL/min/1.73 ESTIMA JAYLA GFR IS code = 1092) sq m NOT ACCURATE CREATININE CLEARANCE IN PREDICTING GLOMERULAR FILTRATION RATE . ESTIMATED GFR I S NOT APPLICABLE FOR DIALYSIS PATIEN TS. POCT-GLUCOSE [id number] 07:43:00 Test Item Value Reference Range Interpretation Comments POC-GLUCOSE METER 84 mg/dL 70-110 TESTED AT [facility] 6720 (AKER) (test code = [place] [id number] 1538) [id number] 06:52:00 Test Item Value Reference Range Interpretation Comments PARTIAL THROMBOPLASTIN TIME 76.5 seconds 22.5-36.0 H (BEAKER) (test code = 760) PROTHROMBIN [id number] 06:51:00 Test Item Value Reference Range Interpretation Comments PROTIME (BEAKER) (test code = 16.5 seconds 11.7-14.7 H 759) INR (BEAKER) (test code = 370) 1.3 <=5.9 RECOMMENDED COUMADIN/WARFARIN INR THERAPY RANGESSTANDARD DOSE: 2.0 - 3.0 Includes: PROPHYLAXIS forvenous thrombosis, systemic embolization; TREATMENT for venous thrombosis and/or pulmonary embolus.HIGH RISK: Target INR is 2.5-3.5 for patients with mechanical heart valves.CBC W/PLT COUNT & AUTO DIFFERENTIAL 2018-12-13 06:50:00 Test Item Value Reference Range Interpretation Comments WHITE BLOOD CELL COUNT (BEAKER) 8.4 K/ L 3.5-10.5 (test code = 775) RED BLOOD CELL COUNT (BEAKER) 3.28 M/ L 4.63-6.08 L (test code = 761) HEMOGLOBIN (BEAKER) (test code = 10.9 GM/DL 13.7-17.5 L 410) HEMATOCRIT (BEAKER) (test code = 34.0 % 40.1-51.0 L 411) MEAN CORPUSCULAR VOLUME (BEAKER) 103.7 fL 79.0-92.2 H (test code = 753) MEAN CORPUSCULAR HEMOGLOBIN 33.2 pg 25.7-32.2 H (BEAKER) (test code = 751) MEAN CORPUSCULAR HEMOGLOBIN CONC 32.1 GM/DL 32.3-36.5 L (BEAKER) (test code = 752) RED CELL DISTRIBUTION WIDTH 15.5 % 11.6-14.4 H (BEAKER) (test code = 412) PLATELET COUNT (BEAKER) (test code 83 K/CU MM 150-450 L = 756) MEAN PLATELET VOLUME (BEAKER) 9.4 fL 9.4-12.4 (test code = 754) NUCLEATED RED BLOOD CELLS (BEAKER) 0 /100 WBC 0-0 (test code = 413) NEUTROPHILS RELATIVE PERCENT 72 % (BEAKER) (test code = 429) LYMPHOCYTES RELATIVE PERCENT 16 % (BEAKER) (test code = 430) MONOCYTES RELATIVE PERCENT 11 % (BEAKER) (test code = 431) EOSINOPHILS RELATIVE PERCENT 1 % (BEAKER) (test code = 432) BASOPHILS RELATIVE PERCENT 1 % (BEAKER) (test code = 437) NEUTROPHILS ABSOLUTE COUNT 6.00 K/ L 1.78-5.38 H (BEAKER) (test code = 670) LYMPHOCYTES ABSOLUTE COUNT 1.34 K/ L 1.32-3.57 (BEAKER) (test code = 414) MONOCYTES ABSOLUTE COUNT (BEAKER) 0.88 K/ L 0.30-0.82 H (test code = 415) EOSINOPHILS ABSOLUTE COUNT 0.05 K/ L 0.04-0.54 (BEAKER) (test code = 416) BASOPHILS ABSOLUTE COUNT (BEAKER) 0.04 K/ L 0.01-0.08 (test code = 417) IMMATURE GRANULOCYTES-RELATIVE 1 % 0-1 PERCENT (BEAKER) (test code = 2801) [id number] 00:11:00 Test Item Value Reference Range Interpretation Comments PARTIAL THROMBOPLASTIN TIME 59.7 seconds 22.5-36.0 H (BEAKER) (test code = 760) POCT-GLUCOSE [id number] 21:33:00 Test Item Value Reference Range Interpretation Comments POC-GLUCOSE METER 113 mg/dL 70-110 H TESTED AT [facility] 6720 ([facility]) (test code = [place] 1538) [address] POCT-GLUCOSE [id number] 18:08:00 Test Item Value Reference Range Interpretation Comments POC-GLUCOSE METER 128 mg/dL 70-110 H TESTED AT [facility] 6720 (BEAKER) (test code = [place] 1538) [address] [id number] 16:51:00 Test Item Value Reference Range Interpretation Comments PARTIAL THROMBOPLASTIN TIME 71.6 seconds 22.5-36.0 H (BEAKER) (test code = 760) POCT-GLUCOSE [id number] 12:39:00 Test Item Value Reference Range Interpretation Comments POC-GLUCOSE METER 124 mg/dL 70-110 H TESTED AT [facility] 6720 (BEAKER) (test code = [place] 1538) [address] [id number] 09:07:00 Test Item Value Reference Range Interpretation Comments PARTIAL THROMBOPLASTIN TIME 96.6 seconds 22.5-36.0 H (BEAKER) (test code = 760) POCT-GLUCOSE [id number] 07:48:00 Test Item Value Reference Range Interpretation Comments POC-GLUCOSE METER 105 mg/dL 70-110 TESTED AT [facility] 67 (BEAKER) (test code = [place] [facility] 1538) [id number] BASIC METABOLIC [id number] 01:54:00 Test Item Value Reference Range Interpretation Comments SODIUM (BEAKER) 138 meq/L 136-145 (test code = 381) POTASSIUM (BEAKER) 3.9 meq/L 3.5-5.1 (test code = 379) CHLORIDE (BEAKER) 100 meq/L 98-107 (test code = 382) CO2 (BEAKER) (test 30 meq/L 22-29 H code = 355) BLOOD UREA NITROGEN 22 mg/dL 7-21 H (BEAKER) (test code = 354) CREATININE (BEAKER) 4.23 mg/dL 0.57-1.25 H (test code = 358) GLUCOSE RANDOM 132 mg/dL 70-105 H (BEAKER) (test code = 652) CALCIUM (BEAKER) 8.6 mg/dL 8.4-10.2 (test code = 697) EGFR (BEAKER) (test 17 mL/min/1.73 ESTIMA JAYLA GFR IS code = 1092) sq m NOT ACCURATE CREATININE CLEARANCE IN PREDICTING GLOMERULAR FILTRATION RATE . ESTIMATED GFR I S NOT APPLICABLE FOR DIALYSIS PATIEN TS. [id number] 01:37:00 Test Item Value Reference Range Interpretation Comments PARTIAL THROMBOPLASTIN TIME 53.4 seconds 22.5-36.0 H (BEAKER) (test code = 760) PROTHROMBIN [id number] 01:36:00 Test Item Value Reference Range Interpretation Comments PROTIME (BEAKER) (test code = 18.1 seconds 11.7-14.7 H 759) INR (BEAKER) (test code = 370) 1.5 <=5.9 RECOMMENDED COUMADIN/WARFARIN INR THERAPY RANGESSTANDARD DOSE: 2.0 - 3.0 Includes: PROPHYLAXIS forvenous thrombosis, systemic embolization; TREATMENT for venous thrombosis and/or pulmonary embolus.HIGH RISK: Target INR is 2.5-3.5 for patients with mechanical heart valves.CBC W/PLT COUNT & AUTO DIFFERENTIAL 2018-12-12 01:22:00 Test Item Value Reference Range Interpretation Comments WHITE BLOOD CELL COUNT (BEAKER) 9.0 K/ L 3.5-10.5 (test code = 775) RED BLOOD CELL COUNT (BEAKER) 3.25 M/ L 4.63-6.08 L (test code = 761) HEMOGLOBIN (BEAKER) (test code = 10.8 GM/DL 13.7-17.5 L 410) HEMATOCRIT (BEAKER) (test code = 33.7 % 40.1-51.0 L 411) MEAN CORPUSCULAR VOLUME (BEAKER) 103.7 fL 79.0-92.2 H (test code = 753) MEAN CORPUSCULAR HEMOGLOBIN 33.2 pg 25.7-32.2 H (BEAKER) (test code = 751) MEAN CORPUSCULAR HEMOGLOBIN CONC 32.0 GM/DL 32.3-36.5 L (BEAKER) (test code = 752) RED CELL DISTRIBUTION WIDTH 15.9 % 11.6-14.4 H (BEAKER) (test code = 412) PLATELET COUNT (BEAKER) (test code 89 K/CU MM 150-450 L = 756) MEAN PLATELET VOLUME (BEAKER) 9.5 fL 9.4-12.4 (test code = 754) NUCLEATED RED BLOOD CELLS (BEAKER) 0 /100 WBC 0-0 (test code = 413) NEUTROPHILS RELATIVE PERCENT 70 % (BEAKER) (test code = 429) LYMPHOCYTES RELATIVE PERCENT 15 % (BEAKER) (test code = 430) MONOCYTES RELATIVE PERCENT 13 % (BEAKER) (test code = 431) EOSINOPHILS RELATIVE PERCENT 0 % (BEAKER) (test code = 432) BASOPHILS RELATIVE PERCENT 0 % (BEAKER) (test code = 437) NEUTROPHILS ABSOLUTE COUNT 6.28 K/ L 1.78-5.38 H (AKER) (test code = 670) LYMPHOCYTES ABSOLUTE COUNT 1.37 K/ L 1.32-3.57 (BEAKER) (test code = 414) MONOCYTES ABSOLUTE COUNT (BEAKER) 1.15 K/ L 0.30-0.82 H (test code = 415) EOSINOPHILS ABSOLUTE COUNT 0.04 K/ L 0.04-0.54 (BEAKER) (test code = 416) BASOPHILS ABSOLUTE COUNT (BEAKER) 0.04 K/ L 0.01-0.08 (test code = 417) IMMATURE GRANULOCYTES-RELATIVE 1 % 0-1 PERCENT ([facility]) (test code = 2801) POCT-GLUCOSE [id number] 21:57:00 Test Item Value Reference Range Interpretation Comments POC-GLUCOSE METER 165 mg/dL 70-110 H TESTED AT [place] [address] ([facility]) (test code = [facility] 1538) [address] [id number] 18:46:00 Test Item Value Reference Range Interpretation Comments PARTIAL THROMBOPLASTIN TIME 39.0 seconds 22.5-36.0 H ([facility]) (test code = 760) POCT-GLUCOSE [id number] 17:51:00 Test Item Value Reference Range Interpretation Comments POC-GLUCOSE METER 157 mg/dL 70-110 H TESTED AT [place] [address] ([facility]) (test code = [facility] 1538) [address] POCT-GLUCOSE [id number] 17:09:00 Test Item Value Reference Range Interpretation Comments POC-GLUCOSE METER 162 mg/dL 70-110 H TESTED AT [place] [address] ([facility]) (test code = [facility] 1538) [address] [id number] 16:07:00 Test Item Value Reference Range Interpretation Comments PARTIAL THROMBOPLASTIN TIME 117.0 seconds 22.5-36.0 H ([facility]) (test code = 760) POCT-GLUCOSE [id number] 13:28:00 Test Item Value Reference Range Interpretation Comments POC-GLUCOSE METER 88 mg/dL 70-110 TESTED AT [place] [address] ([facility]) (test code = [facility] [id number] 1538) [id number] 09:17:00 Test Item Value Reference Range Interpretation Comments PARTIAL THROMBOPLASTIN TIME 71.7 seconds 22.5-36.0 H (BEAKER) (test code = 760) POCT-GLUCOSE [id number] 08:07:00 Test Item Value Reference Range Interpretation Comments POC-GLUCOSE METER 137 mg/dL 70-110 H TESTED AT [facility] 6720 (BEAKER) (test code = [place] 1538) [address] [id number] 02:27:00 Test Item Value Reference Range Interpretation Comments PARTIAL THROMBOPLASTIN TIME 62.4 seconds 22.5-36.0 H (BEAKER) (test code = 760) PROTHROMBIN [id number] 02:26:00 Test Item Value Reference Range Interpretation Comments PROTIME (BEAKER) (test code = 20.0 seconds 11.7-14.7 H 759) INR (BEAKER) (test code = 370) 1.7 <=5.9 RECOMMENDED COUMADIN/WARFARIN INR THERAPY RANGESSTANDARD DOSE: 2.0 - 3.0 Includes: PROPHYLAXIS forvenous thrombosis, systemic embolization; TREATMENT for venous thrombosis and/or pulmonary embolus.HIGH RISK: Target INR is 2.5-3.5 for patients with mechanical heart valves.BASIC METABOLIC [id number] 02:02:00 Test Item Value Reference Range Interpretation Comments SODIUM (BEAKER) 139 meq/L 136-145 (test code = 381) POTASSIUM (BEAKER) 4.1 meq/L 3.5-5.1 (test code = 379) CHLORIDE (BEAKER) 100 meq/L 98-107 (test code = 382) CO2 (BEAKER) (test 25 meq/L 22-29 code = 355) BLOOD UREA NITROGEN 48 mg/dL 7-21 H (BEAKER) (test code = 354) CREATININE (BEAKER) 6.50 mg/dL 0.57-1.25 H (test code = 358) GLUCOSE RANDOM 127 mg/dL 70-105 H (BEAKER) (test code = 652) CALCIUM (BEAKER) 8.7 mg/dL 8.4-10.2 (test code = 697) EGFR (BEAKER) (test 11 mL/min/1.73 ESTIMA JAYLA GFR IS code = 1092) sq m NOT ACCURATE CREATININE CLEARANCE IN PREDICTING GLOMERULAR FILTRATION RATE . ESTIMATED GFR I S NOT APPLICABLE FOR DIALYSIS PATIEN TS. CBC W/PLT COUNT & AUTO [id number] 01:42:00 Test Item Value Reference Range Interpretation Comments WHITE BLOOD CELL COUNT (BEAKER) 9.1 K/ L 3.5-10.5 (test code = 775) RED BLOOD CELL COUNT (BEAKER) 3.22 M/ L 4.63-6.08 L (test code = 761) HEMOGLOBIN (BEAKER) (test code = 10.8 GM/DL 13.7-17.5 L 410) HEMATOCRIT (BEAKER) (test code = 33.5 % 40.1-51.0 L 411) MEAN CORPUSCULAR VOLUME (BEAKER) 104.0 fL 79.0-92.2 H (test code = 753) MEAN CORPUSCULAR HEMOGLOBIN 33.5 pg 25.7-32.2 H (BEAKER) (test code = 751) MEAN CORPUSCULAR HEMOGLOBIN CONC 32.2 GM/DL 32.3-36.5 L (BEAKER) (test code = 752) RED CELL DISTRIBUTION WIDTH 16.0 % 11.6-14.4 H (BEAKER) (test code = 412) PLATELET COUNT (BEAKER) (test code 94 K/CU MM 150-450 L = 756) MEAN PLATELET VOLUME (BEAKER) 9.9 fL 9.4-12.4 (test code = 754) NUCLEATED RED BLOOD CELLS (BEAKER) 0 /100 WBC 0-0 (test code = 413) NEUTROPHILS RELATIVE PERCENT 73 % (BEAKER) (test code = 429) LYMPHOCYTES RELATIVE PERCENT 13 % (BEAKER) (test code = 430) MONOCYTES RELATIVE PERCENT 11 % (BEAKER) (test code = 431) EOSINOPHILS RELATIVE PERCENT 0 % (BEAKER) (test code = 432) BASOPHILS RELATIVE PERCENT 0 % (BEAKER) (test code = 437) NEUTROPHILS ABSOLUTE COUNT 6.63 K/ L 1.78-5.38 H (BEAKER) (test code = 670) LYMPHOCYTES ABSOLUTE COUNT 1.14 K/ L 1.32-3.57 L (BEAKER) (test code = 414) MONOCYTES ABSOLUTE COUNT (BEAKER) 1.03 K/ L 0.30-0.82 H (test code = 415) EOSINOPHILS ABSOLUTE COUNT 0.04 K/ L 0.04-0.54 (BEAKER) (test code = 416) BASOPHILS ABSOLUTE COUNT (BEAKER) 0.03 K/ L 0.01-0.08 (test code = 417) IMMATURE GRANULOCYTES-RELATIVE 2 % 0-1 H PERCENT (BEAKER) (test code = 2801) POCT-GLUCOSE [id number] 21:12:00 Test Item Value Reference Range Interpretation Comments POC-GLUCOSE METER 199 mg/dL 70-110 H TESTED AT [facility] 6720 ([facility]) (test code = [facility] 1538) [id number] POCT-GLUCOSE [id number] 17:39:00 Test Item Value Reference Range Interpretation Comments POC-GLUCOSE METER 145 mg/dL 70-110 H TESTED AT [facility] 67 ([facility]) (test code = [facility] 1538) [address] [id number] 17:33:00 Test Item Value Reference Range Interpretation Comments PARTIAL THROMBOPLASTIN TIME 47.3 seconds 22.5-36.0 H (AKER) (test code = 760) POCT-GLUCOSE [id number] 12:53:00 Test Item Value Reference Range Interpretation Comments POC-GLUCOSE METER 203 mg/dL 70-110 H TESTED AT [facility] 67 ([facility]) (test code = [facility] 1538) [id number] POCT-GLUCOSE [id number] 08:28:00 Test Item Value Reference Range Interpretation Comments POC-GLUCOSE METER 98 mg/dL 70-110 TESTED AT [facility] 6720 ([facility]) (test code = [facility] [id number] 1538) BASIC METABOLIC [id number] 05:52:00 Test Item Value Reference Range Interpretation Comments SODIUM (BEAKER) 135 meq/L 136-145 L (test code = 381) POTASSIUM (BEAKER) 4.0 meq/L 3.5-5.1 (test code = 379) CHLORIDE (BEAKER) 97 meq/L 98-107 L (test code = 382) CO2 (BEAKER) (test 26 meq/L 22-29 code = 355) BLOOD UREA NITROGEN 31 mg/dL 7-21 H (BEAKER) (test code = 354) CREATININE (BEAKER) 4.88 mg/dL 0.57-1.25 H (test code = 358) GLUCOSE RANDOM 135 mg/dL 70-105 H (BEAKER) (test code = 652) CALCIUM (BEAKER) 8.9 mg/dL 8.4-10.2 (test code = 697) EGFR (BEAKER) (test 15 mL/min/1.73 ESTIMA JAYLA GFR IS code = 1092) sq m NOT ACCURATE CREATININE CLEARANCE IN PREDICTING GLOMERULAR FILTRATION RATE . ESTIMATED GFR I S NOT APPLICABLE FOR DIALYSIS PATIEN TS. PROTHROMBIN [id number] 05:51:00 Test Item Value Reference Range Interpretation Comments PROTIME (BEAKER) (test code = 22.9 seconds 11.7-14.7 H 759) INR (BEAKER) (test code = 370) 2.0 <=5.9 RECOMMENDED COUMADIN/WARFARIN INR THERAPY RANGESSTANDARD DOSE: 2.0 - 3.0 Includes: PROPHYLAXIS forvenous thrombosis, systemic embolization; TREATMENT for venous thrombosis and/or pulmonary embolus.HIGH RISK: Target INR is 2.5-3.5 for patients with mechanical heart valves.CBC W/PLT COUNT & AUTO DIFFERENTIAL 2018-12-10 05:31:00 Test Item Value Reference Range Interpretation Comments WHITE BLOOD CELL COUNT (BEAKER) 8.3 K/ L 3.5-10.5 (test code = 775) RED BLOOD CELL COUNT (BEAKER) 3.29 M/ L 4.63-6.08 L (test code = 761) HEMOGLOBIN (BEAKER) (test code = 10.8 GM/DL 13.7-17.5 L 410) HEMATOCRIT (BEAKER) (test code = 34.1 % 40.1-51.0 L 411) MEAN CORPUSCULAR VOLUME (BEAKER) 103.6 fL 79.0-92.2 H (test code = 753) MEAN CORPUSCULAR HEMOGLOBIN 32.8 pg 25.7-32.2 H (BEAKER) (test code = 751) MEAN CORPUSCULAR HEMOGLOBIN CONC 31.7 GM/DL 32.3-36.5 L (BEAKER) (test code = 752) RED CELL DISTRIBUTION WIDTH 16.4 % 11.6-14.4 H (BEAKER) (test code = 412) PLATELET COUNT (BEAKER) (test 105 K/CU MM 150-450 L code = 756) MEAN PLATELET VOLUME (BEAKER) 9.7 fL 9.4-12.4 (test code = 754) NUCLEATED RED BLOOD CELLS 0 /100 WBC 0-0 (BEAKER) (test code = 413) NEUTROPHILS RELATIVE PERCENT 76 % (BEAKER) (test code = 429) LYMPHOCYTES RELATIVE PERCENT 10 % (BEAKER) (test code = 430) MONOCYTES RELATIVE PERCENT 13 % (BEAKER) (test code = 431) EOSINOPHILS RELATIVE PERCENT 0 % (BEAKER) (test code = 432) BASOPHILS RELATIVE PERCENT 0 % (BEAKER) (test code = 437) NEUTROPHILS ABSOLUTE COUNT 6.32 K/ L 1.78-5.38 H (BEAKER) (test code = 670) LYMPHOCYTES ABSOLUTE COUNT 0.85 K/ L 1.32-3.57 L (BEAKER) (test code = 414) MONOCYTES ABSOLUTE COUNT (BEAKER) 1.04 K/ L 0.30-0.82 H (test code = 415) EOSINOPHILS ABSOLUTE COUNT 0.02 K/ L 0.04-0.54 L (BEAKER) (test code = 416) BASOPHILS ABSOLUTE COUNT (BEAKER) 0.02 K/ L 0.01-0.08 (test code = 417) IMMATURE GRANULOCYTES-RELATIVE 1 % 0-1 PERCENT (BEAKER) (test code = 2801) POCT-GLUCOSE [id number] 20:54:00 Test Item Value Reference Range Interpretation Comments POC-GLUCOSE METER 126 mg/dL 70-110 H TESTED AT [place] [address] ([facility]) (test code = [facility] 1538) [id number] POCT-GLUCOSE [id number] 18:47:00 Test Item Value Reference Range Interpretation Comments POC-GLUCOSE METER 70 mg/dL 70-110 TESTED AT [place] [address] ([facility]) (test code = [facility] [address] 1538) POCT-GLUCOSE [id number] 13:25:00 Test Item Value Reference Range Interpretation Comments POC-GLUCOSE METER 120 mg/dL 70-110 H TESTED AT [place] [address] ([facility]) (test code = [facility] 1538) [id number] POCT-GLUCOSE [id number] 09:32:00 Test Item Value Reference Range Interpretation Comments POC-GLUCOSE METER 104 mg/dL 70-110 TESTED AT [place] [address] ([facility]) (test code = [facility] 1538) [id number] BASIC METABOLIC [id number] 05:59:00 Test Item Value Reference Range Interpretation Comments SODIUM (BEAKER) 132 meq/L 136-145 L (test code = 381) POTASSIUM (BEAKER) 4.4 meq/L 3.5-5.1 (test code = 379) CHLORIDE (BEAKER) 93 meq/L 98-107 L (test code = 382) CO2 (BEAKER) (test 24 meq/L 22-29 code = 355) BLOOD UREA NITROGEN 68 mg/dL 7-21 H (BEAKER) (test code = 354) CREATININE (BEAKER) 7.47 mg/dL 0.57-1.25 H (test code = 358) GLUCOSE RANDOM 112 mg/dL 70-105 H (BEAKER) (test code = 652) CALCIUM (BEAKER) 8.9 mg/dL 8.4-10.2 (test code = 697) EGFR (BEAKER) (test 9 mL/min/1.73 ESTIMAT ED GFR IS code = 1092) sq m NOT ACCURATE CREATININE CLEARANCE IN PREDICTING GLOMERULAR FILTRATION RATE . ESTIMATED GFR I S NOT APPLICABLE FOR DIALYSIS PATIEN TS. PROTHROMBIN TIME/[id number] 05:20:00 Test Item Value Reference Range Interpretation Comments PROTIME (BEAKER) (test code = 30.5 seconds 11.7-14.7 H 759) INR (BEAKER) (test code = 370) 2.9 <=5.9 RECOMMENDED COUMADIN/WARFARIN INR THERAPY RANGESSTANDARD DOSE: 2.0 - 3.0 Includes: PROPHYLAXIS forvenous thrombosis, systemic embolization; TREATMENT for venous thrombosis and/or pulmonary embolus.HIGH RISK: Target INR is 2.5-3.5 for patients with mechanical heart valves.CBC W/PLT COUNT & AUTO DIFFERENTIAL 2018-12-09 05:13:00 Test Item Value Reference Range Interpretation Comments WHITE BLOOD CELL COUNT (BEAKER) 8.1 K/ L 3.5-10.5 (test code = 775) RED BLOOD CELL COUNT (BEAKER) 3.29 M/ L 4.63-6.08 L (test code = 761) HEMOGLOBIN (BEAKER) (test code = 10.9 GM/DL 13.7-17.5 L 410) HEMATOCRIT (BEAKER) (test code = 33.7 % 40.1-51.0 L 411) MEAN CORPUSCULAR VOLUME (BEAKER) 102.4 fL 79.0-92.2 H (test code = 753) MEAN CORPUSCULAR HEMOGLOBIN 33.1 pg 25.7-32.2 H (BEAKER) (test code = 751) MEAN CORPUSCULAR HEMOGLOBIN CONC 32.3 GM/DL 32.3-36.5 (BEAKER) (test code = 752) RED CELL DISTRIBUTION WIDTH 16.1 % 11.6-14.4 H (BEAKER) (test code = 412) PLATELET COUNT (BEAKER) (test 115 K/CU MM 150-450 L code = 756) MEAN PLATELET VOLUME (BEAKER) 9.3 fL 9.4-12.4 L (test code = 754) NUCLEATED RED BLOOD CELLS 0 /100 WBC 0-0 (BEAKER) (test code = 413) NEUTROPHILS RELATIVE PERCENT 77 % (BEAKER) (test code = 429) LYMPHOCYTES RELATIVE PERCENT 11 % (BEAKER) (test code = 430) MONOCYTES RELATIVE PERCENT 11 % (BEAKER) (test code = 431) EOSINOPHILS RELATIVE PERCENT 0 % (BEAKER) (test code = 432) BASOPHILS RELATIVE PERCENT 0 % (BEAKER) (test code = 437) NEUTROPHILS ABSOLUTE COUNT 6.20 K/ L 1.78-5.38 H (BEAKER) (test code = 670) LYMPHOCYTES ABSOLUTE COUNT 0.90 K/ L 1.32-3.57 L (BEAKER) (test code = 414) MONOCYTES ABSOLUTE COUNT (BEAKER) 0.89 K/ L 0.30-0.82 H (test code = 415) EOSINOPHILS ABSOLUTE COUNT 0.02 K/ L 0.04-0.54 L (BEAKER) (test code = 416) BASOPHILS ABSOLUTE COUNT (BEAKER) 0.02 K/ L 0.01-0.08 (test code = 417) IMMATURE GRANULOCYTES-RELATIVE 1 % 0-1 PERCENT (BEAKER) (test code = 5732) POCT-GLUCOSE [id number] 21:14:00 Test Item Value Reference Range Interpretation Comments POC-GLUCOSE METER 200 mg/dL 70-110 H TESTED AT [facility] 6720 (BEAKER) (test code = [place] 1538) [address] POCT-GLUCOSE [id number] 17:34:00 Test Item Value Reference Range Interpretation Comments POC-GLUCOSE METER 143 mg/dL 70-110 H TESTED AT [facility] 6720 (BEAKER) (test code = FOSTER Paul [place] 1538) [address] POCT-GLUCOSE [id number] 12:04:00 Test Item Value Reference Range Interpretation Comments POC-GLUCOSE METER 160 mg/dL 70-110 H TESTED AT [facility] 6720 (BEAKER) (test code = FOSTER Paul [place] 1538) [address] POCT-GLUCOSE [id number] 08:08:00 Test Item Value Reference Range Interpretation Comments POC-GLUCOSE METER 154 mg/dL 70-110 H TESTED AT [facility] 6720 (BEAKER) (test code = [facility] Humberto [facility] 1538) [address] BASIC METABOLIC [id number] 06:33:00 Test Item Value Reference Range Interpretation Comments SODIUM (BEAKER) 135 meq/L 136-145 L (test code = 381) POTASSIUM (BEAKER) 4.2 meq/L 3.5-5.1 (test code = 379) CHLORIDE (BEAKER) 95 meq/L 98-107 L (test code = 382) CO2 (BEAKER) (test 25 meq/L 22-29 code = 355) BLOOD UREA NITROGEN 55 mg/dL 7-21 H (BEAKER) (test code = 354) CREATININE (BEAKER) 6.11 mg/dL 0.57-1.25 H (test code = 358) GLUCOSE RANDOM 120 mg/dL 70-105 H (BEAKER) (test code = 652) CALCIUM (BEAKER) 9.2 mg/dL 8.4-10.2 (test code = 697) EGFR (BEAKER) (test 11 mL/min/1.73 ESTIMA JAYLA GFR IS code = 1092) sq m NOT ACCURATE CREATININE CLEARANCE IN PREDICTING GLOMERULAR FILTRATION RATE . ESTIMATED GFR I S NOT APPLICABLE FOR DIALYSIS PATIEN TS. [id number] 06:01:00 Test Item Value Reference Range Interpretation Comments PARTIAL THROMBOPLASTIN TIME 117.2 seconds 22.5-36.0 H (BEAKER) (test code = 760) PROTHROMBIN [id number] 05:56:00 Test Item Value Reference Range Interpretation Comments PROTIME (BEAKER) (test code = 30.8 seconds 11.7-14.7 H 759) INR (BEAKER) (test code = 370) 3.0 <=5.9 RECOMMENDED COUMADIN/WARFARIN INR THERAPY RANGESSTANDARD DOSE: 2.0 - 3.0 Includes: PROPHYLAXIS forvenous thrombosis, systemic embolization; TREATMENT for venous thrombosis and/or pulmonary embolus.HIGH RISK: Target INR is 2.5-3.5 for patients with mechanical heart valves.CBC W/PLT COUNT & AUTO DIFFERENTIAL 2018-12-08 05:46:00 Test Item Value Reference Range Interpretation Comments WHITE BLOOD CELL COUNT (BEAKER) 7.6 K/ L 3.5-10.5 (test code = 775) RED BLOOD CELL COUNT (BEAKER) 3.30 M/ L 4.63-6.08 L (test code = 761) HEMOGLOBIN (BEAKER) (test code = 11.0 GM/DL 13.7-17.5 L 410) HEMATOCRIT (BEAKER) (test code = 34.1 % 40.1-51.0 L 411) MEAN CORPUSCULAR VOLUME (BEAKER) 103.3 fL 79.0-92.2 H (test code = 753) MEAN CORPUSCULAR HEMOGLOBIN 33.3 pg 25.7-32.2 H (BEAKER) (test code = 751) MEAN CORPUSCULAR HEMOGLOBIN CONC 32.3 GM/DL 32.3-36.5 (BEAKER) (test code = 752) RED CELL DISTRIBUTION WIDTH 16.1 % 11.6-14.4 H (BEAKER) (test code = 412) PLATELET COUNT (BEAKER) (test 119 K/CU MM 150-450 L code = 756) MEAN PLATELET VOLUME (BEAKER) 9.2 fL 9.4-12.4 L (test code = 754) NUCLEATED RED BLOOD CELLS 0 /100 WBC 0-0 (BEAKER) (test code = 413) NEUTROPHILS RELATIVE PERCENT 73 % (BEAKER) (test code = 429) LYMPHOCYTES RELATIVE PERCENT 13 % (BEAKER) (test code = 430) MONOCYTES RELATIVE PERCENT 13 % (BEAKER) (test code = 431) EOSINOPHILS RELATIVE PERCENT 0 % (BEAKER) (test code = 432) BASOPHILS RELATIVE PERCENT 0 % (BEAKER) (test code = 437) NEUTROPHILS ABSOLUTE COUNT 5.57 K/ L 1.78-5.38 H (BEAKER) (test code = 670) LYMPHOCYTES ABSOLUTE COUNT 1.01 K/ L 1.32-3.57 L (BEAKER) (test code = 414) MONOCYTES ABSOLUTE COUNT (BEAKER) 0.96 K/ L 0.30-0.82 H (test code = 415) EOSINOPHILS ABSOLUTE COUNT 0.01 K/ L 0.04-0.54 L (BEAKER) (test code = 416) BASOPHILS ABSOLUTE COUNT (BEAKER) 0.01 K/ L 0.01-0.08 (test code = 417) IMMATURE GRANULOCYTES-RELATIVE 1 % 0-1 PERCENT (BEAKER) (test code = 2801) POCT-GLUCOSE [id number] 21:37:00 Test Item Value Reference Range Interpretation Comments POC-GLUCOSE METER 121 mg/dL 70-110 H TESTED AT [facility] 67 ([facility]) (test code = FOSTER Paul [facility] 1538) [address] POCT-GLUCOSE [id number] 19:01:00 Test Item Value Reference Range Interpretation Comments POC-GLUCOSE METER 191 mg/dL 70-110 H TESTED AT [place] [address] ([facility]) (test code = MARIA GID Humberto [facility] 1538) [id number] 18:31:00 Test Item Value Reference Range Interpretation Comments PARTIAL THROMBOPLASTIN TIME 86.2 seconds 22.5-36.0 H ([facility]) (test code = 760) POCT-GLUCOSE [id number] 13:05:00 Test Item Value Reference Range Interpretation Comments POC-GLUCOSE METER 130 mg/dL 70-110 H TESTED AT [facility] 67 ([facility]) (test code = FOSTER Paul [facility] 1538) [address] RAD, CHEST, 1 VIEW, NON [id number] 12:22:00Reason for exam:->pleural effusionsShould this be performed [...] MDReport Verified Date/Time: 12/07/2018 12:22:50 Reading Location: [facility] B1 C013V Neuro Reading Room [id number] 11:39:00 Test Item Value Reference Range Interpretation Comments PARTIAL THROMBOPLASTIN TIME 100.1 seconds 22.5-36.0 H (BEAKER) (test code = 760) BODY FLUID CULTURE + GRAM [id number] 10:13:00 Test Item Value Reference Range Interpretation Comments CULTURE (BEAKER) (test No growth code = 1095) GRAM STAIN RESULT <1+ White blood cells (BEAKER) (test code = seen 1123) GRAM STAIN RESULT No organisms seen (BEAKER) (test code = 32419) POCT-GLUCOSE [id number] 08:51:00 Test Item Value Reference Range Interpretation Comments POC-GLUCOSE METER 90 mg/dL 70-110 TESTED AT [facility] 6720 (BEAKER) (test code = [facility] [address] 1538) BASIC METABOLIC [id number] 07:31:00 Test Item Value Reference Range Interpretation Comments SODIUM (BEAKER) 136 meq/L 136-145 (test code = 381) POTASSIUM (BEAKER) 3.8 meq/L 3.5-5.1 (test code = 379) CHLORIDE (BEAKER) 97 meq/L 98-107 L (test code = 382) CO2 (BEAKER) (test 27 meq/L 22-29 code = 355) BLOOD UREA NITROGEN 36 mg/dL 7-21 H (BEAKER) (test code = 354) CREATININE (BEAKER) 4.44 mg/dL 0.57-1.25 H (test code = 358) GLUCOSE RANDOM 76 mg/dL 70-105 (BEAKER) (test code = 652) CALCIUM (BEAKER) 9.2 mg/dL 8.4-10.2 (test code = 697) EGFR (BEAKER) (test 16 mL/min/1.73 ESTIMA JAYLA GFR IS code = 1092) sq m NOT ACCURATE CREATININE CLEARANCE IN PREDICTING GLOMERULAR FILTRATION RATE . ESTIMATED GFR I S NOT APPLICABLE FOR DIALYSIS PATIEN TS. [id number] 05:21:00 Test Item Value Reference Range Interpretation Comments PARTIAL THROMBOPLASTIN TIME 104.0 seconds 22.5-36.0 H (BEAKER) (test code = 760) PROTHROMBIN [id number] 04:50:00 Test Item Value Reference Range Interpretation Comments PROTIME (BEAKER) (test code = 23.7 seconds 11.7-14.7 H 759) INR (BEAKER) (test code = 370) 2.1 <=5.9 RECOMMENDED COUMADIN/WARFARIN INR THERAPY RANGESSTANDARD DOSE: 2.0 - 3.0 Includes: PROPHYLAXIS forvenous thrombosis, systemic embolization; TREATMENT for venous thrombosis and/or pulmonary embolus.HIGH RISK: Target INR is 2.5-3.5 for patients with mechanical heart valves.CBC W/PLT COUNT & AUTO DIFFERENTIAL 2018-12-07 04:37:00 Test Item Value Reference Range Interpretation Comments WHITE BLOOD CELL COUNT (BEAKER) 9.1 K/ L 3.5-10.5 (test code = 775) RED BLOOD CELL COUNT (BEAKER) 3.27 M/ L 4.63-6.08 L (test code = 761) HEMOGLOBIN (BEAKER) (test code = 10.9 GM/DL 13.7-17.5 L 410) HEMATOCRIT (BEAKER) (test code = 33.0 % 40.1-51.0 L 411) MEAN CORPUSCULAR VOLUME (BEAKER) 100.9 fL 79.0-92.2 H (test code = 753) MEAN CORPUSCULAR HEMOGLOBIN 33.3 pg 25.7-32.2 H (BEAKER) (test code = 751) MEAN CORPUSCULAR HEMOGLOBIN CONC 33.0 GM/DL 32.3-36.5 (BEAKER) (test code = 752) RED CELL DISTRIBUTION WIDTH 15.6 % 11.6-14.4 H (BEAKER) (test code = 412) PLATELET COUNT (BEAKER) (test 140 K/CU MM 150-450 L code = 756) MEAN PLATELET VOLUME (BEAKER) 9.3 fL 9.4-12.4 L (test code = 754) NUCLEATED RED BLOOD CELLS 0 /100 WBC 0-0 (BEAKER) (test code = 413) NEUTROPHILS RELATIVE PERCENT 80 % (BEAKER) (test code = 429) LYMPHOCYTES RELATIVE PERCENT 9 % (BEAKER) (test code = 430) MONOCYTES RELATIVE PERCENT 10 % (BEAKER) (test code = 431) EOSINOPHILS RELATIVE PERCENT 0 % (BEAKER) (test code = 432) BASOPHILS RELATIVE PERCENT 0 % (BEAKER) (test code = 437) NEUTROPHILS ABSOLUTE COUNT 7.26 K/ L 1.78-5.38 H (BEAKER) (test code = 670) LYMPHOCYTES ABSOLUTE COUNT 0.82 K/ L 1.32-3.57 L (BEAKER) (test code = 414) MONOCYTES ABSOLUTE COUNT (BEAKER) 0.94 K/ L 0.30-0.82 H (test code = 415) EOSINOPHILS ABSOLUTE COUNT 0.01 K/ L 0.04-0.54 L (BEAKER) (test code = 416) BASOPHILS ABSOLUTE COUNT (BEAKER) 0.01 K/ L 0.01-0.08 (test code = 417) IMMATURE GRANULOCYTES-RELATIVE 1 % 0-1 PERCENT (BEAKER) (test code = 2801) [id number] 20:33:00 Test Item Value Reference Range Interpretation Comments PARTIAL THROMBOPLASTIN TIME 87.6 seconds 22.5-36.0 H (BEAKER) (test code = 760) POCT-GLUCOSE [id number] 19:30:00 Test Item Value Reference Range Interpretation Comments POC-GLUCOSE METER 112 mg/dL 70-110 H TESTED AT [facility] 67 (BEAKER) (test code = [place] 1538) [address] [id number] 13:55:00 Test Item Value Reference Range Interpretation Comments PARTIAL THROMBOPLASTIN TIME 85.9 seconds 22.5-36.0 H (BEAKER) (test code = 760) POCT-GLUCOSE [id number] 09:12:00 Test Item Value Reference Range Interpretation Comments POC-GLUCOSE METER 112 mg/dL 70-110 H TESTED AT [facility] 6720 (BEAKER) (test code = FOSTER Paul [facility] 1538) [address] BASIC METABOLIC [id number] 08:53:00 Test Item Value Reference Range Interpretation Comments SODIUM (BEAKER) 134 meq/L 136-145 L (test code = 381) POTASSIUM (BEAKER) 3.8 meq/L 3.5-5.1 (test code = 379) CHLORIDE (BEAKER) 96 meq/L 98-107 L (test code = 382) CO2 (BEAKER) (test 23 meq/L 22-29 code = 355) BLOOD UREA NITROGEN 81 mg/dL 7-21 H (BEAKER) (test code = 354) CREATININE (BEAKER) 7.04 mg/dL 0.57-1.25 H (test code = 358) GLUCOSE RANDOM 122 mg/dL 70-105 H (BEAKER) (test code = 652) CALCIUM (BEAKER) 9.0 mg/dL 8.4-10.2 (test code = 697) EGFR (BEAKER) (test 10 mL/min/1.73 ESTIMA JYALA GFR IS code = 1092) sq m NOT ACCURATE CREATININE CLEARANCE IN PREDICTING GLOMERULAR FILTRATION RATE . ESTIMATED GFR I S NOT APPLICABLE FOR DIALYSIS PATIEN TS. [id number] 06:04:00 Test Item Value Reference Range Interpretation Comments PARTIAL THROMBOPLASTIN TIME 105.5 seconds 22.5-36.0 H (BEAKER) (test code = 760) PROTHROMBIN [id number] 05:44:00 Test Item Value Reference Range Interpretation Comments PROTIME (BEAKER) (test code = 17.9 seconds 11.7-14.7 H 759) INR (BEAKER) (test code = 370) 1.5 <=5.9 RECOMMENDED COUMADIN/WARFARIN INR THERAPY RANGESSTANDARD DOSE: 2.0 - 3.0 Includes: PROPHYLAXIS forvenous thrombosis, systemic embolization; TREATMENT for venous thrombosis and/or pulmonary embolus.HIGH RISK: Target INR is 2.5-3.5 for patients with mechanical heart valves.CBC W/PLT COUNT & AUTO DIFFERENTIAL 2018-12-06 05:22:00 Test Item Value Reference Range Interpretation Comments WHITE BLOOD CELL COUNT (BEAKER) 9.4 K/ L 3.5-10.5 (test code = 775) RED BLOOD CELL COUNT (BEAKER) 3.41 M/ L 4.63-6.08 L (test code = 761) HEMOGLOBIN (BEAKER) (test code = 11.2 GM/DL 13.7-17.5 L 410) HEMATOCRIT (BEAKER) (test code = 34.7 % 40.1-51.0 L 411) MEAN CORPUSCULAR VOLUME (BEAKER) 101.8 fL 79.0-92.2 H (test code = 753) MEAN CORPUSCULAR HEMOGLOBIN 32.8 pg 25.7-32.2 H (BEAKER) (test code = 751) MEAN CORPUSCULAR HEMOGLOBIN CONC 32.3 GM/DL 32.3-36.5 (BEAKER) (test code = 752) RED CELL DISTRIBUTION WIDTH 15.5 % 11.6-14.4 H (BEAKER) (test code = 412) PLATELET COUNT (BEAKER) (test 150 K/CU MM 150-450 code = 756) MEAN PLATELET VOLUME (BEAKER) 8.7 fL 9.4-12.4 L (test code = 754) NUCLEATED RED BLOOD CELLS 0 /100 WBC 0-0 (BEAKER) (test code = 413) NEUTROPHILS RELATIVE PERCENT 78 % (BEAKER) (test code = 429) LYMPHOCYTES RELATIVE PERCENT 10 % (BEAKER) (test code = 430) MONOCYTES RELATIVE PERCENT 11 % (BEAKER) (test code = 431) EOSINOPHILS RELATIVE PERCENT 0 % (BEAKER) (test code = 432) BASOPHILS RELATIVE PERCENT 0 % (BEAKER) (test code = 437) NEUTROPHILS ABSOLUTE COUNT 7.28 K/ L 1.78-5.38 H (BEAKER) (test code = 670) LYMPHOCYTES ABSOLUTE COUNT 0.94 K/ L 1.32-3.57 L (BEAKER) (test code = 414) MONOCYTES ABSOLUTE COUNT (BEAKER) 1.04 K/ L 0.30-0.82 H (test code = 415) EOSINOPHILS ABSOLUTE COUNT 0.02 K/ L 0.04-0.54 L (BEAKER) (test code = 416) BASOPHILS ABSOLUTE COUNT (BEAKER) 0.01 K/ L 0.01-0.08 (test code = 417) IMMATURE GRANULOCYTES-RELATIVE 1 % 0-1 PERCENT (BEAKER) (test code = 2801) CT, CHEST, WITHOUT [id number] 03:17:00FINAL REPORT EXAM: CT of the chest, [...] left pleural effusion with associated compressive atelectasis. Zxdil-[id number] loculated right pleural effusion with pleural thickening [...] follow up is recommendedCardiomegaly. Signed: Raz Taylor Verified Date/Time: 12/06/2018 03:17:03 Reading Location: [address] Body Reading Room POCT-GLUCOSE [id number] 21:22:00 Test Item Value Reference Range Interpretation Comments POC-GLUCOSE METER 171 mg/dL 70-110 H TESTED AT [place] [address] ([facility]) (test code = FOSTER Paul [facility] 1538) [id number] POCT-GLUCOSE [id number] 17:58:00 Test Item Value Reference Range Interpretation Comments POC-GLUCOSE METER 128 mg/dL 70-110 H TESTED AT [place] [address] ([facility]) (test code = FOSTER Paul [facility] 1538) [id number] POCT-GLUCOSE [id number] 13:24:00 Test Item Value Reference Range Interpretation Comments POC-GLUCOSE METER 129 mg/dL 70-110 H TESTED AT [place] [address] ([facility]) (test code = FOSTER Paul [facility] 1538) [id number] LACTATE DEHYDROGENASE (LDH)2018-12-05 13:14:00 Test Item Value Reference Range Interpretation Comments LACTATE DEHYDROGENASE (BEAKER) (test 291 U/L 125-220 H code = 635) [id number] 13:10:00 Test Item Value Reference Range Interpretation Comments PARTIAL THROMBOPLASTIN TIME 91.7 seconds 22.5-36.0 H (BEAKER) (test code = 760) POCT-GLUCOSE [id number] 08:19:00 Test Item Value Reference Range Interpretation Comments POC-GLUCOSE METER 106 mg/dL 70-110 TESTED AT [facility] 6720 (BEAKER) (test code = FOSTER L[place]PE[place] 1538) [address] BASIC METABOLIC [id number] 07:05:00 Test Item Value Reference Range Interpretation Comments SODIUM (BEAKER) 137 meq/L 136-145 (test code = 381) POTASSIUM (BEAKER) 3.7 meq/L 3.5-5.1 (test code = 379) CHLORIDE (BEAKER) 100 meq/L 98-107 (test code = 382) CO2 (BEAKER) (test 24 meq/L 22-29 code = 355) BLOOD UREA NITROGEN 60 mg/dL 7-21 H (BEAKER) (test code = 354) CREATININE (BEAKER) 5.57 mg/dL 0.57-1.25 H (test code = 358) GLUCOSE RANDOM 113 mg/dL 70-105 H (BEAKER) (test code = 652) CALCIUM (BEAKER) 9.2 mg/dL 8.4-10.2 (test code = 697) EGFR (BEAKER) (test 13 mL/min/1.73 ESTIMA JAYLA GFR IS code = 1092) sq m NOT ACCURATE CREATININE CLEARANCE IN PREDICTING GLOMERULAR FILTRATION RATE . ESTIMATED GFR I S NOT APPLICABLE FOR DIALYSIS PATIEN TS. [id number] 06:32:00 Test Item Value Reference Range Interpretation Comments PROTIME (BEAKER) (test code = 19.8 seconds 11.7-14.7 H 759) INR (BEAKER) (test code = 370) 1.6 <=5.9 PARTIAL THROMBOPLASTIN TIME 76.5 seconds 22.5-36.0 H (BEAKER) (test code = 760) RECOMMENDED COUMADIN/WARFARIN INR THERAPY RANGESSTANDARD DOSE: 2.0 - 3.0 Includes: PROPHYLAXIS forvenous thrombosis, systemic embolization; TREATMENT for venous thrombosis and/or pulmonary embolus.HIGH RISK: Target INR is 2.5-3.5 for patients with mechanical heart valves.PROTHROMBIN [id number] 06:30:00 Test Item Value Reference Range Interpretation Comments PROTIME (BEAKER) (test code = 19.8 seconds 11.7-14.7 H 759) INR (BEAKER) (test code = 370) 1.6 <=5.9 RECOMMENDED COUMADIN/WARFARIN INR THERAPY RANGESSTANDARD DOSE: 2.0 - 3.0 Includes: PROPHYLAXIS forvenous thrombosis, systemic embolization; TREATMENT for venous thrombosis and/or pulmonary embolus.HIGH RISK: Target INR is 2.5-3.5 for patients with mechanical heart valves.CBC W/PLT COUNT & AUTO DIFFERENTIAL 2018-12-05 06:15:00 Test Item Value Reference Range Interpretation Comments WHITE BLOOD CELL COUNT (BEAKER) 7.5 K/ L 3.5-10.5 (test code = 775) RED BLOOD CELL COUNT (BEAKER) 3.27 M/ L 4.63-6.08 L (test code = 761) HEMOGLOBIN (BEAKER) (test code = 10.7 GM/DL 13.7-17.5 L 410) HEMATOCRIT (BEAKER) (test code = 33.1 % 40.1-51.0 L 411) MEAN CORPUSCULAR VOLUME (BEAKER) 101.2 fL 79.0-92.2 H (test code = 753) MEAN CORPUSCULAR HEMOGLOBIN 32.7 pg 25.7-32.2 H (BEAKER) (test code = 751) MEAN CORPUSCULAR HEMOGLOBIN CONC 32.3 GM/DL 32.3-36.5 (BEAKER) (test code = 752) RED CELL DISTRIBUTION WIDTH 15.3 % 11.6-14.4 H (BEAKER) (test code = 412) PLATELET COUNT (BEAKER) (test 145 K/CU MM 150-450 L code = 756) MEAN PLATELET VOLUME (BEAKER) 9.1 fL 9.4-12.4 L (test code = 754) NUCLEATED RED BLOOD CELLS 0 /100 WBC 0-0 (BEAKER) (test code = 413) NEUTROPHILS RELATIVE PERCENT 74 % (BEAKER) (test code = 429) LYMPHOCYTES RELATIVE PERCENT 13 % (BEAKER) (test code = 430) MONOCYTES RELATIVE PERCENT 12 % (BEAKER) (test code = 431) EOSINOPHILS RELATIVE PERCENT 0 % (BEAKER) (test code = 432) BASOPHILS RELATIVE PERCENT 0 % (BEAKER) (test code = 437) NEUTROPHILS ABSOLUTE COUNT 5.57 K/ L 1.78-5.38 H (BEAKER) (test code = 670) LYMPHOCYTES ABSOLUTE COUNT 0.94 K/ L 1.32-3.57 L (BEAKER) (test code = 414) MONOCYTES ABSOLUTE COUNT (BEAKER) 0.91 K/ L 0.30-0.82 H (test code = 415) EOSINOPHILS ABSOLUTE COUNT 0.02 K/ L 0.04-0.54 L (BEAKER) (test code = 416) BASOPHILS ABSOLUTE COUNT (BEAKER) 0.01 K/ L 0.01-0.08 (test code = 417) IMMATURE GRANULOCYTES-RELATIVE 1 % 0-1 PERCENT (BEAKER) (test code = 2801) [id number] 00:40:00 Test Item Value Reference Range Interpretation Comments PARTIAL THROMBOPLASTIN TIME 63.1 seconds 22.5-36.0 H (BEAKER) (test code = 760) POCT-GLUCOSE [id number] 00:12:00 Test Item Value Reference Range Interpretation Comments POC-GLUCOSE METER 124 mg/dL 70-110 H TESTED AT [facility] 6720 (BEAKER) (test code = [place]ER [place] 1538) [address] HEPATITIS B SURFACE [id number] 22:54:00 Test Item Value Reference Range Interpretation Comments HEPATITIS B SURFACE ANTIGEN (2) Nonreactive Nonreactive (BEAKER) (test code = 2585) For chronic HD patients, draw HBsAg with each admission then every 30 days.BODY FLUID CELL COUNT WITH [id number] 20:34:00 Test Item Value Reference Range Interpretation Comments APPEARANCE FLUID (BEAKER) (test Cloudy Clear A code = 510) COLOR FLUID (BEAKER) (test code Brown Colorless, Straw A = 511) RBC FLUID (BEAKER) (test code = 11760 /cu mm <=1 H 513) ADJUSTED WBC FLUID (BEAKER) 330 /cu mm <=5 H (test code = 1691) LINING CELLS (BEAKER) (test 0 /cu mm <=1 code = 1590) NEUTROPHILS FLUID (BEAKER) 4 % (test code = 1656) LYMPHS FLUID (BEAKER) (test 92 % code = 488) MONO/MACROPHAGE FLUID (BEAKER) 4 % (test code = 489) EOSINOPHILS FLUID (BEAKER) 0 % (test code = 491) BASO FLUID (BEAKER) (test code 0 % = 492) CONTAINER BODY FLUID (BEAKER) EDTA Tube (test code = 2873) LACTATE DEHYDROGENASE (LDH), BODY [id number] 19:43:00 Test Item Value Reference Range Interpretation Comments LACTATE DEHYDROGENASE FLUID 288 U/L Light's criteria (BEAKER) (test code = 634) identifies effusions if one or more are pre [...] local 1% lidocaine anesthesia was administered.A 4 Finnish catheter was advanced into the largest pocket of the septated pleural effusion and 300 ccof bloody fluid was removed. The catheter was removed without immediate complication. Samples were sent for analysis. IMPRESSION:Uncomplicated ultrasound-guided right thoracentesis with 300 cc fluid removed. Signed: Raimundo Kim MDReport Verified Date/Time: 12/04/2018 18:00:50 Reading Location: [facility] [id number] Ultrasound Reading Room RAD, CHEST, 1 VIEW, NON [id number] 17:23:00Reason for exam:->s/p right thoracentesisShould this be [...] MDReport Verified Date/Time: 12/04/2018 17:23:06 Reading Location: [facility] Reading Room C. DIFFICILE GDH [id number] 10:01:00 Test Item Value Reference Range Interpretation Comments CDT TOXIN (test code Negative Negative = [id number]) CDT GDH ANTIGEN Positive Negative A C. difficile present but (test code = toxin not detec jayla. [id number]) Indicates colon ization with non-toxige ron strain or level of tox in below detectable leve ls. No need for enteri c isolation. Gary atment is rarely needed ( only when strong clinical suspicion for Clostridium difficile infection) Testing performed by [employer] Rapid Cassette Assay. For GDH, published sensitivity of the assay is 98.7% compared to cytotoxicity testing. For Toxin AB, published sensitivity is 87.8% and specificity 99.4% compared to cytotoxicity testing.Verification of kit performance was done by the [facility] Microbiology Lab prior to clinical use.[id number] 09:39:00 Test Item Value Reference Range Interpretation Comments PARTIAL THROMBOPLASTIN TIME 79.4 seconds 22.5-36.0 H (BEAKER) (test code = 760) OCCULT BLOOD, [id number] 05:59:00 Test Item Value Reference Range Interpretation Comments FECAL OCCULT BLOOD (BEAKER) (test Negative Negative code = 618) BASIC METABOLIC [id number] 02:50:00 Test Item Value Reference Range Interpretation Comments SODIUM (BEAKER) 138 meq/L 136-145 (test code = 381) POTASSIUM (BEAKER) 3.4 meq/L 3.5-5.1 L (test code = 379) CHLORIDE (BEAKER) 98 meq/L 98-107 (test code = 382) CO2 (BEAKER) (test 25 meq/L 22-29 code = 355) BLOOD UREA NITROGEN 96 mg/dL 7-21 H (BEAKER) (test code = 354) CREATININE (BEAKER) 7.48 mg/dL 0.57-1.25 H (test code = 358) GLUCOSE RANDOM 169 mg/dL 70-105 H (BEAKER) (test code = 652) CALCIUM (BEAKER) 9.4 mg/dL 8.4-10.2 (test code = 697) EGFR (BEAKER) (test 9 mL/min/1.73 ESTIMAT ED GFR IS code = 1092) sq m NOT ACCURATE CREATININE CLEARANCE IN PREDICTING GLOMERULAR FILTRATION RATE . ESTIMATED GFR I S NOT APPLICABLE FOR DIALYSIS PATIEN [id number] 02:50:00 Test Item Value Reference Range Interpretation Comments PARTIAL THROMBOPLASTIN TIME 35.3 seconds 22.5-36.0 (BEAKER) (test code = 760) Prior to initiating heparinPROTHROMBIN [id number] 02:49:00 Test Item Value Reference Range Interpretation Comments PROTIME (BEAKER) (test code = 25.1 seconds 11.7-14.7 H 759) INR (BEAKER) (test code = 370) 2.3 <=5.9 RECOMMENDED COUMADIN/WARFARIN INR THERAPY RANGESSTANDARD DOSE: 2.0 - 3.0 Includes: PROPHYLAXIS forvenous thrombosis, systemic embolization; TREATMENT for venous thrombosis and/or pulmonary embolus.HIGH RISK: Target INR is 2.5-3.5 for patients with mechanical heart valves.Prior to initiating heparinTROPONIN I 2018-12-04 02:49:00 Test Item Value Reference Range Interpretation Comments TROPONIN I (BEAKER) (test code = 0.08 ng/mL 0.00-0.03 H 397) Troponin I (TnI) levels must be interpreted [...] acute neurological disease, and persistent tachyarrhythmia.HEPATIC FUNCTION [id number] 02:43:00 Test Item Value Reference Range Interpretation Comments TOTAL PROTEIN (BEAKER) (test code = 7.3 gm/dL 6.0-8.3 770) ALBUMIN (BEAKER) (test code = 1145) 3.1 g/dL 3.5-5.0 L BILIRUBIN TOTAL (BEAKER) (test code 0.8 mg/dL 0.2-1.2 = 377) BILIRUBIN DIRECT (BEAKER) (test 0.5 mg/dL 0.1-0.5 code = 706) ALKALINE PHOSPHATASE (BEAKER) (test 98 U/L 40-150 code = 346) AST (SGOT) (BEAKER) (test code = 28 U/L 5-34 353) ALT (SGPT) (BEAKER) (test code = 37 U/L 6-55 347) CBC W/PLT COUNT & AUTO [id number] 02:21:00 Test Item Value Reference Range Interpretation Comments WHITE BLOOD CELL COUNT (BEAKER) 8.5 K/ L 3.5-10.5 (test code = 775) RED BLOOD CELL COUNT (BEAKER) 3.15 M/ L 4.63-6.08 L (test code = 761) HEMOGLOBIN (BEAKER) (test code = 10.4 GM/DL 13.7-17.5 L 410) HEMATOCRIT (BEAKER) (test code = 31.8 % 40.1-51.0 L 411) MEAN CORPUSCULAR VOLUME (BEAKER) 101.0 fL 79.0-92.2 H (test code = 753) MEAN CORPUSCULAR HEMOGLOBIN 33.0 pg 25.7-32.2 H (BEAKER) (test code = 751) MEAN CORPUSCULAR HEMOGLOBIN CONC 32.7 GM/DL 32.3-36.5 (BEAKER) (test code = 752) RED CELL DISTRIBUTION WIDTH 15.5 % 11.6-14.4 H (BEAKER) (test code = 412) PLATELET COUNT (BEAKER) (test 137 K/CU MM 150-450 L code = 756) MEAN PLATELET VOLUME (BEAKER) 8.9 fL 9.4-12.4 L (test code = 754) NUCLEATED RED BLOOD CELLS 0 /100 WBC 0-0 (BEAKER) (test code = 413) NEUTROPHILS RELATIVE PERCENT 75 % (BEAKER) (test code = 429) LYMPHOCYTES RELATIVE PERCENT 12 % (BEAKER) (test code = 430) MONOCYTES RELATIVE PERCENT 12 % (BEAKER) (test code = 431) EOSINOPHILS RELATIVE PERCENT 0 % (BEAKER) (test code = 432) BASOPHILS RELATIVE PERCENT 0 % (BEAKER) (test code = 437) NEUTROPHILS ABSOLUTE COUNT 6.32 K/ L 1.78-5.38 H (BEAKER) (test code = 670) LYMPHOCYTES ABSOLUTE COUNT 1.00 K/ L 1.32-3.57 L (BEAKER) (test code = 414) MONOCYTES ABSOLUTE COUNT (BEAKER) 1.01 K/ L 0.30-0.82 H (test code = 415) EOSINOPHILS ABSOLUTE COUNT 0.02 K/ L 0.04-0.54 L (BEAKER) (test code = 416) BASOPHILS ABSOLUTE COUNT (BEAKER) 0.01 K/ L 0.01-0.08 (test code = 417) IMMATURE GRANULOCYTES-RELATIVE 2 % 0-1 H PERCENT (BEAKER) (test code = 2801) POCT-GLUCOSE [id number] 21:22:00 Test Item Value Reference Range Interpretation Comments POC-GLUCOSE METER 192 mg/dL 70-110 H TESTED AT [facility] 6720 ([facility]) (test code = F[place]ER Paul [facility] 1538) [id number] TROPONIN [id number] 17:09:00 Test Item Value Reference Range Interpretation Comments TROPONIN I (BEAKER) (test code = 0.10 ng/mL 0.00-0.03 H 397) Troponin I (TnI) levels must be interpreted [...] and persistent tachyarrhythmia.RAD, CHEST, 1 VIEW, NON [id number] 15:36:00Reason for exam:->SHORTNESS OF BREATHShould this be performed at the bedside?->YesFINAL REPORT AP chest HISTORY: Shortness of breath. COMPARISON: 11/03/2017. IMPRESSION: Cardiomegaly. Mild interstitial edema. Right effusion and adjacent atelectasis. No pneumothorax. Signed: Mandy Chairez MDReport Verified Date/Time: 12/03/2018 15:36:19 Reading Location: [address] Radiology Reading Room TROPONIN [id number] 14:48:00 Test Item Value Reference Range Interpretation Comments TROPONIN I (BEAKER) (test code = 0.10 ng/mL 0.00-0.03 H 397) Troponin I (TnI) levels must be interpreted [...] 2018-12-03 14:47:00 Test Item Value Reference Range Interpretation Comments B-TYPE NATRIURETIC PEPTIDE 2959 pg/mL 0-100 H (BEAKER) (test code = 700) BASIC METABOLIC [id number] 14:40:00 Test Item Value Reference Range Interpretation Comments SODIUM (BEAKER) 137 meq/L 136-145 (test code = 381) POTASSIUM (BEAKER) 3.3 meq/L 3.5-5.1 L (test code = 379) CHLORIDE (BEAKER) 99 meq/L 98-107 (test code = 382) CO2 (BEAKER) (test 24 meq/L 22-29 code = 355) BLOOD UREA NITROGEN 85 mg/dL 7-21 H (BEAKER) (test code = 354) CREATININE (BEAKER) 6.72 mg/dL 0.57-1.25 H (test code = 358) GLUCOSE RANDOM 158 mg/dL 70-105 H (BEAKER) (test code = 652) CALCIUM (BEAKER) 9.7 mg/dL 8.4-10.2 (test code = 697) EGFR (BEAKER) (test 10 mL/min/1.73 ESTIMA JAYLA GFR IS code = 1092) sq m NOT ACCURATE CREATININE CLEARANCE IN PREDICTING GLOMERULAR FILTRATION RATE . ESTIMATED GFR I S NOT APPLICABLE FOR DIALYSIS PATIEN TS. [id number] 14:34:00 Test Item Value Reference Range Interpretation Comments PROTIME (BEAKER) (test code = 25.4 seconds 11.7-14.7 H 759) INR (BEAKER) (test code = 370) 2.3 <=5.9 PARTIAL THROMBOPLASTIN TIME 34.3 seconds 22.5-36.0 (BEAKER) (test code = 760) RECOMMENDED COUMADIN/WARFARIN INR THERAPY RANGESSTANDARD DOSE: 2.0 - 3.0 Includes: PROPHYLAXIS forvenous thrombosis, systemic embolization; TREATMENT for venous thrombosis and/or pulmonary embolus.HIGH RISK: Target INR is 2.5-3.5 for patients with mechanical heart valves.CBC W/PLT COUNT & AUTO DIFFERENTIAL 2018-12-03 14:25:00 Test Item Value Reference Range Interpretation Comments WHITE BLOOD CELL COUNT (BEAKER) 8.5 K/ L 3.5-10.5 (test code = 775) RED BLOOD CELL COUNT (BEAKER) 3.26 M/ L 4.63-6.08 L (test code = 761) HEMOGLOBIN (BEAKER) (test code = 10.9 GM/DL 13.7-17.5 L 410) HEMATOCRIT (BEAKER) (test code = 33.3 % 40.1-51.0 L 411) MEAN CORPUSCULAR VOLUME (BEAKER) 102.1 fL 79.0-92.2 H (test code = 753) MEAN CORPUSCULAR HEMOGLOBIN 33.4 pg 25.7-32.2 H (BEAKER) (test code = 751) MEAN CORPUSCULAR HEMOGLOBIN CONC 32.7 GM/DL 32.3-36.5 (BEAKER) (test code = 752) RED CELL DISTRIBUTION WIDTH 15.3 % 11.6-14.4 H (BEAKER) (test code = 412) PLATELET COUNT (BEAKER) (test 162 K/CU MM 150-450 code = 756) MEAN PLATELET VOLUME (BEAKER) 9.2 fL 9.4-12.4 L (test code = 754) NUCLEATED RED BLOOD CELLS 0 /100 WBC 0-0 (BEAKER) (test code = 413) NEUTROPHILS RELATIVE PERCENT 74 % (BEAKER) (test code = 429) LYMPHOCYTES RELATIVE PERCENT 13 % (BEAKER) (test code = 430) MONOCYTES RELATIVE PERCENT 11 % (BEAKER) (test code = 431) EOSINOPHILS RELATIVE PERCENT 0 % (BEAKER) (test code = 432) BASOPHILS RELATIVE PERCENT 0 % (BEAKER) (test code = 437) NEUTROPHILS ABSOLUTE COUNT 6.31 K/ L 1.78-5.38 H (BEAKER) (test code = 670) LYMPHOCYTES ABSOLUTE COUNT 1.07 K/ L 1.32-3.57 L (BEAKER) (test code = 414) MONOCYTES ABSOLUTE COUNT (BEAKER) 0.96 K/ L 0.30-0.82 H (test code = 415) EOSINOPHILS ABSOLUTE COUNT 0.01 K/ L 0.04-0.54 L (BEAKER) (test code = 416) BASOPHILS ABSOLUTE COUNT (BEAKER) 0.01 K/ L 0.01-0.08 (test code = 417) IMMATURE GRANULOCYTES-RELATIVE 2 % 0-1 H PERCENT (BEAKER) (test code = 2801) RAD, CHEST, 2 [id number] 15:24:00Reason for Exam:->chronic Diastolic heart FailureFINAL REPORT [...] MDReport Verified Date/Time: 11/03/2018 15:24:42 Reading Location: [address] Radiology Reading Room MISCELLANEOUS LAB [id number] 08:22:00 Test Item Value Reference Range Interpretation Comments SCAN RESULT (test code = 6330024) PROTHROMBIN [id number] 08:37:00 Test Item Value Reference Range Interpretation Comments PROTIME (BEAKER) (test code = 24.8 seconds 11.7-14.7 H 759) INR (BEAKER) (test code = 370) 2.2 <=5.9 RECOMMENDED COUMADIN/WARFARIN INR THERAPY RANGESSTANDARD DOSE: 2.0 - 3.0 Includes: PROPHYLAXIS forvenous thrombosis, systemic embolization; TREATMENT for venous thrombosis and/or pulmonary embolus.HIGH RISK: Target INR is 2.5-3.5 for patients with mechanical heart valves.POCT-GLUCOSE [id number] 08:10:00 Test Item Value Reference Range Interpretation Comments POC-GLUCOSE METER 89 mg/dL 70-110 TESTED AT [facility] 6720 (BEAKER) (test code = [place] [address] 1538) BASIC METABOLIC [id number] 06:29:00 Test Item Value Reference Range Interpretation Comments SODIUM (BEAKER) 134 meq/L 136-145 L (test code = 381) POTASSIUM (BEAKER) 4.2 meq/L 3.5-5.1 (test code = 379) CHLORIDE (BEAKER) 97 meq/L 98-107 L (test code = 382) CO2 (BEAKER) (test 29 meq/L 22-29 code = 355) BLOOD UREA NITROGEN 22 mg/dL 7-21 H (BEAKER) (test code = 354) CREATININE (BEAKER) 5.61 mg/dL 0.57-1.25 H (test code = 358) GLUCOSE RANDOM 87 mg/dL 70-105 (BEAKER) (test code = 652) CALCIUM (BEAKER) 9.0 mg/dL 8.4-10.2 (test code = 697) EGFR (BEAKER) (test 13 mL/min/1.73 ESTIMA JAYLA GFR IS code = 1092) sq m NOT ACCURATE CREATININE CLEARANCE IN PREDICTING GLOMERULAR FILTRATION RATE . ESTIMATED GFR I S NOT APPLICABLE FOR DIALYSIS PATIEN TS. [id number] 06:28:00 Test Item Value Reference Range Interpretation Comments MAGNESIUM (BEAKER) (test code = 1.8 mg/dL 1.6-2.6 627) [id number] 06:14:00 Test Item Value Reference Range Interpretation Comments PARTIAL THROMBOPLASTIN TIME 64.7 seconds 22.5-36.0 H (BEAKER) (test code = 760) CBC W/PLT COUNT & AUTO [id number] 05:58:00 Test Item Value Reference Range Interpretation Comments WHITE BLOOD CELL COUNT (BEAKER) 5.4 K/ L 3.5-10.5 (test code = 775) RED BLOOD CELL COUNT (BEAKER) 3.28 M/ L 4.63-6.08 L (test code = 761) HEMOGLOBIN (BEAKER) (test code = 10.7 GM/DL 13.7-17.5 L 410) HEMATOCRIT (BEAKER) (test code = 32.8 % 40.1-51.0 L 411) MEAN CORPUSCULAR VOLUME (BEAKER) 100.0 fL 79.0-92.2 H (test code = 753) MEAN CORPUSCULAR HEMOGLOBIN 32.6 pg 25.7-32.2 H (BEAKER) (test code = 751) MEAN CORPUSCULAR HEMOGLOBIN CONC 32.6 GM/DL 32.3-36.5 (BEAKER) (test code = 752) RED CELL DISTRIBUTION WIDTH 14.3 % 11.6-14.4 (BEAKER) (test code = 412) PLATELET COUNT (BEAKER) (test 121 K/CU MM 150-450 L code = 756) MEAN PLATELET VOLUME (BEAKER) 9.0 fL 9.4-12.4 L (test code = 754) NUCLEATED RED BLOOD CELLS 0 /100 WBC 0-0 (BEAKER) (test code = 413) NEUTROPHILS RELATIVE PERCENT 64 % (BEAKER) (test code = 429) LYMPHOCYTES RELATIVE PERCENT 18 % (BEAKER) (test code = 430) MONOCYTES RELATIVE PERCENT 15 % (BEAKER) (test code = 431) EOSINOPHILS RELATIVE PERCENT 2 % (BEAKER) (test code = 432) BASOPHILS RELATIVE PERCENT 1 % (BEAKER) (test code = 437) NEUTROPHILS ABSOLUTE COUNT 3.45 K/ L 1.78-5.38 (BEAKER) (test code = 670) LYMPHOCYTES ABSOLUTE COUNT 0.96 K/ L 1.32-3.57 L (BEAKER) (test code = 414) MONOCYTES ABSOLUTE COUNT (BEAKER) 0.78 K/ L 0.30-0.82 (test code = 415) EOSINOPHILS ABSOLUTE COUNT 0.11 K/ L 0.04-0.54 (BEAKER) (test code = 416) BASOPHILS ABSOLUTE COUNT (BEAKER) 0.03 K/ L 0.01-0.08 (test code = 417) IMMATURE GRANULOCYTES-RELATIVE 1 % 0-1 PERCENT (BEAKER) (test code = 2801) POCT-GLUCOSE [id number] 21:14:00 Test Item Value Reference Range Interpretation Comments POC-GLUCOSE METER 135 mg/dL 70-110 H TESTED AT [place] [address] ([facility]) (test code = FOSTER Paul [facility] 1538) [id number] 19:36:00 Test Item Value Reference Range Interpretation Comments PARTIAL THROMBOPLASTIN TIME 88.6 seconds 22.5-36.0 H ([facility]) (test code = 760) POCT-GLUCOSE [id number] 18:27:00 Test Item Value Reference Range Interpretation Comments POC-GLUCOSE METER 88 mg/dL 70-110 TESTED AT [place] [address] ([facility]) (test code = FOSTER Paul [facility] [address] 1538) POCT-GLUCOSE [id number] 12:05:00 Test Item Value Reference Range Interpretation Comments POC-GLUCOSE METER 92 mg/dL 70-110 TESTED AT [place] [address] ([facility]) (test code = FOSTER Paul [facility] [address] 1538) [id number] 11:46:00 Test Item Value Reference Range Interpretation Comments PARTIAL THROMBOPLASTIN TIME 74.3 seconds 22.5-36.0 H ([facility]) (test code = 760) POCT-GLUCOSE [id number] 10:36:00 Test Item Value Reference Range Interpretation Comments POC-GLUCOSE METER 101 mg/dL 70-110 TESTED AT [place] [address] ([facility]) (test code = FOSTER Paul [facility] 1538) [id number] POCT-GLUCOSE [id number] 07:10:00 Test Item Value Reference Range Interpretation Comments POC-GLUCOSE METER 92 mg/dL 70-110 TESTED AT [place] [address] ([facility]) (test code = FOSTER Paul [facility] [address] 1538) PROTHROMBIN [id number] 01:41:00 Test Item Value Reference Range Interpretation Comments PROTIME ([facility]) (test code = 22.8 seconds 11.7-14.7 H 759) INR ([facility]) (test code = 370) 2.0 <=5.9 RECOMMENDED COUMADIN/WARFARIN INR THERAPY RANGESSTANDARD DOSE: 2.0 - 3.0 Includes: PROPHYLAXIS forvenous thrombosis, systemic embolization; TREATMENT for venous thrombosis and/or pulmonary embolus.HIGH RISK: Target INR is 2.5-3.5 for patients with mechanical heart valves.While on warfarin.[id number] 01:41:00 Test Item Value Reference Range Interpretation Comments PARTIAL THROMBOPLASTIN TIME 52.3 seconds 22.5-36.0 H (BEAKER) (test code = 760) While on warfarin.BASIC METABOLIC [id number] 01:37:00 Test Item Value Reference Range Interpretation Comments SODIUM (BEAKER) 134 meq/L 136-145 L (test code = 381) POTASSIUM (BEAKER) 4.6 meq/L 3.5-5.1 (test code = 379) CHLORIDE (BEAKER) 99 meq/L 98-107 (test code = 382) CO2 (BEAKER) (test 24 meq/L 22-29 code = 355) BLOOD UREA NITROGEN 35 mg/dL 7-21 H (BEAKER) (test code = 354) CREATININE (BEAKER) 7.31 mg/dL 0.57-1.25 H (test code = 358) GLUCOSE RANDOM 87 mg/dL 70-105 (BEAKER) (test code = 652) CALCIUM (BEAKER) 9.2 mg/dL 8.4-10.2 (test code = 697) EGFR (BEAKER) (test 9 mL/min/1.73 ESTIMAT ED GFR IS code = 1092) sq m NOT ACCURATE CREATININE CLEARANCE IN PREDICTING GLOMERULAR FILTRATION RATE . ESTIMATED GFR I S NOT APPLICABLE FOR DIALYSIS PATIEN TS. [id number] 01:32:00 Test Item Value Reference Range Interpretation Comments MAGNESIUM (BEAKER) (test code = 1.8 mg/dL 1.6-2.6 627) CBC W/PLT COUNT & AUTO [id number] 01:18:00 Test Item Value Reference Range Interpretation Comments WHITE BLOOD CELL COUNT (BEAKER) 6.7 K/ L 3.5-10.5 (test code = 775) RED BLOOD CELL COUNT (BEAKER) 3.38 M/ L 4.63-6.08 L (test code = 761) HEMOGLOBIN (BEAKER) (test code = 10.9 GM/DL 13.7-17.5 L 410) HEMATOCRIT (BEAKER) (test code = 33.6 % 40.1-51.0 L 411) MEAN CORPUSCULAR VOLUME (BEAKER) 99.4 fL 79.0-92.2 H (test code = 753) MEAN CORPUSCULAR HEMOGLOBIN 32.2 pg 25.7-32.2 (BEAKER) (test code = 751) MEAN CORPUSCULAR HEMOGLOBIN CONC 32.4 GM/DL 32.3-36.5 (BEAKER) (test code = 752) RED CELL DISTRIBUTION WIDTH 14.1 % 11.6-14.4 (BEAKER) (test code = 412) PLATELET COUNT (BEAKER) (test 160 K/CU MM 150-450 code = 756) MEAN PLATELET VOLUME (BEAKER) 9.0 fL 9.4-12.4 L (test code = 754) NUCLEATED RED BLOOD CELLS 0 /100 WBC 0-0 (BEAKER) (test code = 413) NEUTROPHILS RELATIVE PERCENT 70 % (BEAKER) (test code = 429) LYMPHOCYTES RELATIVE PERCENT 15 % (BEAKER) (test code = 430) MONOCYTES RELATIVE PERCENT 12 % (BEAKER) (test code = 431) EOSINOPHILS RELATIVE PERCENT 2 % (BEAKER) (test code = 432) BASOPHILS RELATIVE PERCENT 1 % (BEAKER) (test code = 437) NEUTROPHILS ABSOLUTE COUNT 4.66 K/ L 1.78-5.38 (BEAKER) (test code = 670) LYMPHOCYTES ABSOLUTE COUNT 0.97 K/ L 1.32-3.57 L (BEAKER) (test code = 414) MONOCYTES ABSOLUTE COUNT (BEAKER) 0.82 K/ L 0.30-0.82 (test code = 415) EOSINOPHILS ABSOLUTE COUNT 0.16 K/ L 0.04-0.54 (BEAKER) (test code = 416) BASOPHILS ABSOLUTE COUNT (BEAKER) 0.05 K/ L 0.01-0.08 (test code = 417) IMMATURE GRANULOCYTES-RELATIVE 1 % 0-1 PERCENT (BEAKER) (test code = 2807) [id number] 23:23:00 Test Item Value Reference Range Interpretation Comments PARTIAL THROMBOPLASTIN TIME 125.2 seconds 22.5-36.0 H (BEAKER) (test code = 760) POCT-GLUCOSE [id number] 21:19:00 Test Item Value Reference Range Interpretation Comments POC-GLUCOSE METER 165 mg/dL 70-110 H TESTED AT [facility] 6720 (BEAKER) (test code = F[place]ER [place] 1538) [id number] POCT-GLUCOSE [id number] 18:34:00 Test Item Value Reference Range Interpretation Comments POC-GLUCOSE METER 92 mg/dL 70-110 TESTED AT [facility] 6720 ([facility]) (test code = FOSTER Paul [facility] [address] 1538) [id number] 17:17:00 Test Item Value Reference Range Interpretation Comments PARTIAL THROMBOPLASTIN TIME 75.2 seconds 22.5-36.0 H ([facility]) (test code = 760) POCT-GLUCOSE [id number] 12:48:00 Test Item Value Reference Range Interpretation Comments POC-GLUCOSE METER 105 mg/dL 70-110 TESTED AT [place] [address] ([facility]) (test code = [facility] Humberto [facility] 1538) [id number] RAD, CHEST, 1 VIEW, NON [id number] 11:00:00Reason for exam:->eval right effusionShould this be performed at the bedside?->YesFINAL REPORT Comparison: 08/15/2018 TECHNIQUE: Single view of the chest FINDINGS: Small to moderate right pleural effusion is stable. Small left pleural effusion may be slightly increased. Vascular congestion seen. No other significant change. Signed: Kyle Rome Verified Date/Time: 08/18/2018 11:00:36 Reading Location: [facility] Radiology Reading Room Electronicallysigned by: KYLE ROME M.D. on 08/18/2018 11:00 [id number] 09:48:00 Test Item Value Reference Range Interpretation Comments PARTIAL THROMBOPLASTIN TIME 48.8 seconds 22.5-36.0 H ([facility]) (test code = 760) POCT-GLUCOSE [id number] 07:37:00 Test Item Value Reference Range Interpretation Comments POC-GLUCOSE METER 96 mg/dL 70-110 TESTED AT [facility] 67 ([facility]) (test code = FOSTER Paul [facility] [address] 1538) BASIC METABOLIC [id number] 02:24:00 Test Item Value Reference Range Interpretation Comments SODIUM (BEAKER) 136 meq/L 136-145 (test code = 381) POTASSIUM ([facility]) 4.4 meq/L 3.5-5.1 (test code = 379) CHLORIDE (BEAKER) 99 meq/L 98-107 (test code = 382) CO2 (BEAKER) (test 26 meq/L 22-29 code = 355) BLOOD UREA NITROGEN 29 mg/dL 7-21 H (BEAKER) (test code = 354) CREATININE (BEAKER) 5.95 mg/dL 0.57-1.25 H (test code = 358) GLUCOSE RANDOM 96 mg/dL 70-105 (BEAKER) (test code = 652) CALCIUM (BEAKER) 9.1 mg/dL 8.4-10.2 (test code = 697) EGFR (BEAKER) (test 12 mL/min/1.73 ESTIMA JAYLA GFR IS code = 1092) sq m NOT ACCURATE CREATININE CLEARANCE IN PREDICTING GLOMERULAR FILTRATION RATE . ESTIMATED GFR I S NOT APPLICABLE FOR DIALYSIS PATIEN TS. [id number] 02:22:00 Test Item Value Reference Range Interpretation Comments MAGNESIUM (BEAKER) (test code = 1.7 mg/dL 1.6-2.6 627) [id number] 02:15:00 Test Item Value Reference Range Interpretation Comments PARTIAL THROMBOPLASTIN TIME 98.9 seconds 22.5-36.0 H (BEAKER) (test code = 760) PROTHROMBIN TIME/[id number] 02:13:00 Test Item Value Reference Range Interpretation Comments PROTIME (BEAKER) (test code = 21.6 seconds 11.7-14.7 H 759) INR (BEAKER) (test code = 370) 1.9 <=5.9 RECOMMENDED COUMADIN/WARFARIN INR THERAPY RANGESSTANDARD DOSE: 2.0 - 3.0 Includes: PROPHYLAXIS forvenous thrombosis, systemic embolization; TREATMENT for venous thrombosis and/or pulmonary embolus.HIGH RISK: Target INR is 2.5-3.5 for patients with mechanical heart valves.CBC W/PLT COUNT & AUTO DIFFERENTIAL 2018-08-18 02:09:00 Test Item Value Reference Range Interpretation Comments WHITE BLOOD CELL COUNT (BEAKER) 6.8 K/ L 3.5-10.5 (test code = 775) RED BLOOD CELL COUNT (BEAKER) 3.29 M/ L 4.63-6.08 L (test code = 761) HEMOGLOBIN (BEAKER) (test code = 10.7 GM/DL 13.7-17.5 L 410) HEMATOCRIT (BEAKER) (test code = 33.2 % 40.1-51.0 L 411) MEAN CORPUSCULAR VOLUME (BEAKER) 100.9 fL 79.0-92.2 H (test code = 753) MEAN CORPUSCULAR HEMOGLOBIN 32.5 pg 25.7-32.2 H (BEAKER) (test code = 751) MEAN CORPUSCULAR HEMOGLOBIN CONC 32.2 GM/DL 32.3-36.5 L (BEAKER) (test code = 752) RED CELL DISTRIBUTION WIDTH 14.2 % 11.6-14.4 (BEAKER) (test code = 412) PLATELET COUNT (BEAKER) (test 157 K/CU MM 150-450 code = 756) MEAN PLATELET VOLUME (BEAKER) 9.1 fL 9.4-12.4 L (test code = 754) NUCLEATED RED BLOOD CELLS 0 /100 WBC 0-0 (BEAKER) (test code = 413) NEUTROPHILS RELATIVE PERCENT 66 % (BEAKER) (test code = 429) LYMPHOCYTES RELATIVE PERCENT 16 % (BEAKER) (test code = 430) MONOCYTES RELATIVE PERCENT 15 % (BEAKER) (test code = 431) EOSINOPHILS RELATIVE PERCENT 3 % (BEAKER) (test code = 432) BASOPHILS RELATIVE PERCENT 1 % (BEAKER) (test code = 437) NEUTROPHILS ABSOLUTE COUNT 4.48 K/ L 1.78-5.38 (BEAKER) (test code = 670) LYMPHOCYTES ABSOLUTE COUNT 1.06 K/ L 1.32-3.57 L (BEAKER) (test code = 414) MONOCYTES ABSOLUTE COUNT (BEAKER) 0.99 K/ L 0.30-0.82 H (test code = 415) EOSINOPHILS ABSOLUTE COUNT 0.17 K/ L 0.04-0.54 (BEAKER) (test code = 416) BASOPHILS ABSOLUTE COUNT (BEAKER) 0.05 K/ L 0.01-0.08 (test code = 417) IMMATURE GRANULOCYTES-RELATIVE 1 % 0-1 PERCENT (BEAKER) (test code = 2801) POCT-GLUCOSE [id number] 21:51:00 Test Item Value Reference Range Interpretation Comments POC-GLUCOSE METER 98 mg/dL 70-110 TESTED AT [facility] 67[address] (BEAKER) (test code = [place] [address] 1538) [id number] 18:51:00 Test Item Value Reference Range Interpretation Comments PARTIAL THROMBOPLASTIN TIME 56.1 seconds 22.5-36.0 H (BEAKER) (test code = 760) [id number] 17:06:00 Test Item Value Reference Range Interpretation Comments PARTIAL THROMBOPLASTIN TIME 121.9 seconds 22.5-36.0 H (BEAKER) (test code = 760) POCT-GLUCOSE [id number] 16:46:00 Test Item Value Reference Range Interpretation Comments POC-GLUCOSE METER 135 mg/dL 70-110 H TESTED AT [facility] 6720 (BEAKER) (test code = [facility] Humberto [facility] 1538) [id number] POCT-GLUCOSE [id number] 13:28:00 Test Item Value Reference Range Interpretation Comments POC-GLUCOSE METER 96 mg/dL 70-110 TESTED AT [facility] 67[address] (BEAKER) [facility] [id number] 1538) [id number] 09:15:00 Test Item Value Reference Range Interpretation Comments PARTIAL THROMBOPLASTIN TIME 58.1 seconds 22.5-36.0 H (BEAKER) (test code = 760) BASIC METABOLIC [id number] 07:31:00 Test Item Value Reference Range Interpretation Comments SODIUM (BEAKER) 136 meq/L 136-145 (test code = 381) POTASSIUM (BEAKER) 4.0 meq/L 3.5-5.1 (test code = 379) CHLORIDE (BEAKER) 101 meq/L 98-107 (test code = 382) CO2 (BEAKER) (test 25 meq/L 22-29 code = 355) BLOOD UREA NITROGEN 21 mg/dL 7-21 (BEAKER) (test code = 354) CREATININE (BEAKER) 4.75 mg/dL 0.57-1.25 H (test code = 358) GLUCOSE RANDOM 93 mg/dL 70-105 (BEAKER) (test code = 652) CALCIUM (BEAKER) 8.9 mg/dL 8.4-10.2 (test code = 697) EGFR (BEAKER) (test 15 mL/min/1.73 ESTIMA JAYLA GFR IS code = 1092) sq m NOT ACCURATE CREATININE CLEARANCE IN PREDICTING GLOMERULAR FILTRATION RATE . ESTIMATED GFR I S NOT APPLICABLE FOR DIALYSIS PATIEN TS. [id number] 07:19:00 Test Item Value Reference Range Interpretation Comments PHOSPHORUS (BEAKER) (test code = 3.7 mg/dL 2.3-4.7 604) [id number] 07:19:00 Test Item Value Reference Range Interpretation Comments MAGNESIUM (BEAKER) (test code = 1.7 mg/dL 1.6-2.6 627) [id number] 07:07:00 Test Item Value Reference Range Interpretation Comments PARTIAL THROMBOPLASTIN TIME 124.4 seconds 22.5-36.0 H (BEAKER) (test code = 760) PROTHROMBIN [id number] 07:02:00 Test Item Value Reference Range Interpretation Comments PROTIME (BEAKER) (test code = 19.8 seconds 11.7-14.7 H 759) INR (BEAKER) (test code = 370) 1.7 <=5.9 RECOMMENDED COUMADIN/WARFARIN INR THERAPY RANGESSTANDARD DOSE: 2.0 - 3.0 Includes: PROPHYLAXIS forvenous thrombosis, systemic embolization; TREATMENT for venous thrombosis and/or pulmonary embolus.HIGH RISK: Target INR is 2.5-3.5 for patients with mechanical heart valves.While on warfarin.PROTHROMBIN TIME/INR 2018-08-17 07:02:00 Test Item Value Reference Range Interpretation Comments PROTIME (BEAKER) (test code = 19.8 seconds 11.7-14.7 H 759) INR (BEAKER) (test code = 370) 1.7 <=5.9 RECOMMENDED COUMADIN/WARFARIN INR THERAPY RANGESSTANDARD DOSE: 2.0 - 3.0 Includes: PROPHYLAXIS forvenous thrombosis, systemic embolization; TREATMENT for venous thrombosis and/or pulmonary embolus.HIGH RISK: Target INR is 2.5-3.5 for patients with mechanical heart valves.CBC W/PLT COUNT & AUTO DIFFERENTIAL 2018-08-17 06:53:00 Test Item Value Reference Range Interpretation Comments WHITE BLOOD CELL COUNT (BEAKER) 6.3 K/ L 3.5-10.5 (test code = 775) RED BLOOD CELL COUNT (BEAKER) 3.34 M/ L 4.63-6.08 L (test code = 761) HEMOGLOBIN (BEAKER) (test code = 10.7 GM/DL 13.7-17.5 L 410) HEMATOCRIT (BEAKER) (test code = 33.6 % 40.1-51.0 L 411) MEAN CORPUSCULAR VOLUME (BEAKER) 100.6 fL 79.0-92.2 H (test code = 753) MEAN CORPUSCULAR HEMOGLOBIN 32.0 pg 25.7-32.2 (BEAKER) (test code = 751) MEAN CORPUSCULAR HEMOGLOBIN CONC 31.8 GM/DL 32.3-36.5 L (BEAKER) (test code = 752) RED CELL DISTRIBUTION WIDTH 14.2 % 11.6-14.4 (BEAKER) (test code = 412) PLATELET COUNT (BEAKER) (test 159 K/CU MM 150-450 code = 756) MEAN PLATELET VOLUME (BEAKER) 9.0 fL 9.4-12.4 L (test code = 754) NUCLEATED RED BLOOD CELLS 0 /100 WBC 0-0 (BEAKER) (test code = 413) NEUTROPHILS RELATIVE PERCENT 67 % (BEAKER) (test code = 429) LYMPHOCYTES RELATIVE PERCENT 15 % (BEAKER) (test code = 430) MONOCYTES RELATIVE PERCENT 14 % (BEAKER) (test code = 431) EOSINOPHILS RELATIVE PERCENT 2 % (BEAKER) (test code = 432) BASOPHILS RELATIVE PERCENT 1 % (BEAKER) (test code = 437) NEUTROPHILS ABSOLUTE COUNT 4.25 K/ L 1.78-5.38 (BEAKER) (test code = 670) LYMPHOCYTES ABSOLUTE COUNT 0.96 K/ L 1.32-3.57 L (BEAKER) (test code = 414) MONOCYTES ABSOLUTE COUNT (BEAKER) 0.88 K/ L 0.30-0.82 H (test code = 415) EOSINOPHILS ABSOLUTE COUNT 0.13 K/ L 0.04-0.54 (BEAKER) (test code = 416) BASOPHILS ABSOLUTE COUNT (BEAKER) 0.04 K/ L 0.01-0.08 (test code = 417) IMMATURE GRANULOCYTES-RELATIVE 1 % 0-1 PERCENT (BEAKER) (test code = 2801) [id number] 23:01:00 Test Item Value Reference Range Interpretation Comments PARTIAL THROMBOPLASTIN TIME 46.5 seconds 22.5-36.0 H (BEAKER) (test code = 760) POCT-GLUCOSE [id number] 22:45:00 Test Item Value Reference Range Interpretation Comments POC-GLUCOSE METER 144 mg/dL 70-110 H TESTED AT [facility] ([facility]) (test code = [place] 1538) [id number] 15:02:00 Test Item Value Reference Range Interpretation Comments PARTIAL THROMBOPLASTIN TIME 56.1 seconds 22.5-36.0 H ([facility]) (test code = 760) POCT-GLUCOSE [id number] 14:39:00 Test Item Value Reference Range Interpretation Comments POC-GLUCOSE METER 189 mg/dL 70-110 H TESTED AT [facility] 6720 ([facility]) (test code = [place] 1538) [address] HIV-1 PCR, [id number] 13:58:00 Test Item Value Reference Range Interpretation Comments HIV-1 NUMERIC RESULT ([facility]) (test 170 Cp/mL <20 H code = 2704) This test uses a Real-Time Polymerase Chain Reaction (RT-PCR) methodology to detect a highly conserved region of the HIV-1 gag gene and was performed using the ERICH AmpliPrep/ERICH TaqMan HIV-1 test kit version 2.0 ([employer]Reportable range for this assay is 20 - 10,000,000 copies per mL (1.3 - 7.0 Log copies/mL).[id number] 12:54:00 Test Item Value Reference Range Interpretation Comments PARTIAL THROMBOPLASTIN TIME 143.6 seconds 22.5-36.0 H ([facility]) (test code = 760) [id number] 10:00:00Medical Cytology Report Case: [id number] Authorizing Provider: Alison Solano MD Collected: 08/13/2018 1803 Ordering Location: [address] Received: 08/14/2018 0923 Service Pathologist: Yamil Hamm MD Specimen: Pleural, Right RIGHT PLEURAL FLUID (CYTOSPINS AND CELL BLOCK): - NO MALIGNANT CELLS IDENTIFIED (SEE COMMENT) Signing Pathologist Direct Phone Line: [phone] signed by Yamil Hamm MD on 08/16/2018 [...] thoracentesis may be considered when fluid reaccumulates. 90285, 46315, 89242, 92410 x 2Left pleural effusion, history of AIDS, Kaposi's sarcoma, hepatitis C.RIGHT PLEURAL FLUID 300 mls bloody; 4 cytospins, cell blockCollected: [id number]: [id number] interpretation of this case included the use of immunohistochemistry or special stains. Please see the immunohistochemistry results in the COMMENT section. Immunohistochemistry technical testing was performed at [facility], Pathology Laboratory where it was developed [...] as qualified toperform high complexity clinical laboratory testing.[facility], Department of Pathology, [address] [place] [address], [facility] of [facility], [address] [place] [address], [facility], [address] [place] [address], DTMR-GLUCOSE [id number] 08:29:00 Test Item Value Reference Range Interpretation Comments POC-GLUCOSE METER 96 mg/dL 70-110 TESTED AT [place] [address] (BEAKER) (test code = [place] [facility] [address] 1538) BODY FLUID CULTURE + GRAM [id number] 07:54:00 Test Item Value Reference Range Interpretation Comments CULTURE (BEAKER) (test code No growth = 1095) GRAM STAIN RESULT (BEAKER) <1+ WBCs (test code = 1123) GRAM STAIN RESULT (BEAKER) No organisms seen (test code = 53325) BASIC METABOLIC [id number] 06:30:00 Test Item Value Reference Range Interpretation Comments SODIUM (BEAKER) 132 meq/L 136-145 L (test code = 381) POTASSIUM (BEAKER) 4.0 meq/L 3.5-5.1 (test code = 379) CHLORIDE (BEAKER) 99 meq/L 98-107 (test code = 382) CO2 (BEAKER) (test 21 meq/L 22-29 L code = 355) BLOOD UREA NITROGEN 41 mg/dL 7-21 H (BEAKER) (test code = 354) CREATININE (BEAKER) 6.80 mg/dL 0.57-1.25 H (test code = 358) GLUCOSE RANDOM 95 mg/dL 70-105 (BEAKER) (test code = 652) CALCIUM (BEAKER) 8.7 mg/dL 8.4-10.2 (test code = 697) EGFR (BEAKER) (test 10 mL/min/1.73 ESTIMA JAYLA GFR IS code = 1092) sq m NOT ACCURATE CREATININE CLEARANCE IN PREDICTING GLOMERULAR FILTRATION RATE . ESTIMATED GFR I S NOT APPLICABLE FOR DIALYSIS PATIEN TS. [id number] 06:26:00 Test Item Value Reference Range Interpretation Comments MAGNESIUM (BEAKER) (test code = 1.6 mg/dL 1.6-2.6 627) [id number] 05:48:00 Test Item Value Reference Range Interpretation Comments PARTIAL THROMBOPLASTIN TIME 80.3 seconds 22.5-36.0 H (BEAKER) (test code = 760) While on warfarin.PROTHROMBIN [id number] 05:46:00 Test Item Value Reference Range Interpretation Comments PROTIME (BEAKER) (test code = 18.4 seconds 11.7-14.7 H 759) INR (BEAKER) (test code = 370) 1.5 <=5.9 RECOMMENDED COUMADIN/WARFARIN INR THERAPY RANGESSTANDARD DOSE: 2.0 - 3.0 Includes: PROPHYLAXIS forvenous thrombosis, systemic embolization; TREATMENT for venous thrombosis and/or pulmonary embolus.HIGH RISK: Target INR is 2.5-3.5 for patients with mechanical heart valves.While on warfarin.CBC W/PLT COUNT & AUTO [id number] 05:28:00 Test Item Value Reference Range Interpretation Comments WHITE BLOOD CELL COUNT (BEAKER) 7.8 K/ L 3.5-10.5 (test code = 775) RED BLOOD CELL COUNT (BEAKER) 3.27 M/ L 4.63-6.08 L (test code = 761) HEMOGLOBIN (BEAKER) (test code = 10.5 GM/DL 13.7-17.5 L 410) HEMATOCRIT (BEAKER) (test code = 33.2 % 40.1-51.0 L 411) MEAN CORPUSCULAR VOLUME (BEAKER) 101.5 fL 79.0-92.2 H (test code = 753) MEAN CORPUSCULAR HEMOGLOBIN 32.1 pg 25.7-32.2 (BEAKER) (test code = 751) MEAN CORPUSCULAR HEMOGLOBIN CONC 31.6 GM/DL 32.3-36.5 L (BEAKER) (test code = 752) RED CELL DISTRIBUTION WIDTH 13.8 % 11.6-14.4 (BEAKER) (test code = 412) PLATELET COUNT (BEAKER) (test 155 K/CU MM 150-450 code = 756) MEAN PLATELET VOLUME (BEAKER) 9.0 fL 9.4-12.4 L (test code = 754) NUCLEATED RED BLOOD CELLS 0 /100 WBC 0-0 (BEAKER) (test code = 413) NEUTROPHILS RELATIVE PERCENT 71 % (BEAKER) (test code = 429) LYMPHOCYTES RELATIVE PERCENT 13 % (BEAKER) (test code = 430) MONOCYTES RELATIVE PERCENT 13 % (BEAKER) (test code = 431) EOSINOPHILS RELATIVE PERCENT 2 % (BEAKER) (test code = 432) BASOPHILS RELATIVE PERCENT 1 % (BEAKER) (test code = 437) NEUTROPHILS ABSOLUTE COUNT 5.49 K/ L 1.78-5.38 H (BEAKER) (test code = 670) LYMPHOCYTES ABSOLUTE COUNT 1.00 K/ L 1.32-3.57 L (BEAKER) (test code = 414) MONOCYTES ABSOLUTE COUNT (BEAKER) 1.03 K/ L 0.30-0.82 H (test code = 415) EOSINOPHILS ABSOLUTE COUNT 0.16 K/ L 0.04-0.54 (BEAKER) (test code = 416) BASOPHILS ABSOLUTE COUNT (BEAKER) 0.05 K/ L 0.01-0.08 (test code = 417) IMMATURE GRANULOCYTES-RELATIVE 1 % 0-1 PERCENT (BEAKER) (test code = 2801) [id number] 22:09:00 Test Item Value Reference Range Interpretation Comments PARTIAL THROMBOPLASTIN TIME 61.5 seconds 22.5-36.0 H (JARROD) (test code = 760) RAD, CHEST, 1 VIEW, NON [id number] 20:20:00Reason for exam:->eval right effusionShould this be [...] Anderson Verified Date/Time: 08/15/2018 20:20:24 Reading Location: [facility] Radiology Reading Room POCT-GLUCOSE [id number] 19:05:00 Test Item Value Reference Range Interpretation Comments POC-GLUCOSE METER 87 mg/dL 70-110 TESTED AT [facility] 67 ([facility]) ([facility] [address]) POCT-GLUCOSE [id number] 13:12:00 Test Item Value Reference Range Interpretation Comments POC-GLUCOSE METER 162 mg/dL 70-110 H TESTED AT [facility] 67[address] ([facility]) (test code = [facility] 1538) [address] [id number] 12:48:00 Test Item Value Reference Range Interpretation Comments PARTIAL THROMBOPLASTIN TIME 89.1 seconds 22.5-36.0 H ([facility]) (test code = 760) POCT-GLUCOSE [id number] 09:58:00 Test Item Value Reference Range Interpretation Comments POC-GLUCOSE METER 229 mg/dL 70-110 H TESTED AT [facility] 6720 (BEAKER) (test code = [place] 1538) [address] BASIC METABOLIC [id number] 05:40:00 Test Item Value Reference Range Interpretation Comments SODIUM (BEAKER) 137 meq/L 136-145 (test code = 381) POTASSIUM (BEAKER) 3.6 meq/L 3.5-5.1 (test code = 379) CHLORIDE (BEAKER) 102 meq/L 98-107 (test code = 382) CO2 (BEAKER) (test 25 meq/L 22-29 code = 355) BLOOD UREA NITROGEN 28 mg/dL 7-21 H (BEAKER) (test code = 354) CREATININE (BEAKER) 5.36 mg/dL 0.57-1.25 H (test code = 358) GLUCOSE RANDOM 114 mg/dL 70-105 H (BEAKER) (test code = 652) CALCIUM (BEAKER) 8.6 mg/dL 8.4-10.2 (test code = 697) EGFR (BEAKER) (test 13 mL/min/1.73 ESTIMA JAYLA GFR IS code = 1092) sq m NOT ACCURATE CREATININE CLEARANCE IN PREDICTING GLOMERULAR FILTRATION RATE . ESTIMATED GFR I S NOT APPLICABLE FOR DIALYSIS PATIEN TS. CBC W/PLT COUNT & AUTO [id number] 05:38:00 Test Item Value Reference Range Interpretation Comments WHITE BLOOD CELL COUNT (BEAKER) 6.9 K/ L 3.5-10.5 (test code = 775) RED BLOOD CELL COUNT (BEAKER) 3.13 M/ L 4.63-6.08 L (test code = 761) HEMOGLOBIN (BEAKER) (test code = 10.3 GM/DL 13.7-17.5 L 410) HEMATOCRIT (BEAKER) (test code = 32.2 % 40.1-51.0 L 411) MEAN CORPUSCULAR VOLUME (BEAKER) 102.9 fL 79.0-92.2 H (test code = 753) MEAN CORPUSCULAR HEMOGLOBIN 32.9 pg 25.7-32.2 H (BEAKER) (test code = 751) MEAN CORPUSCULAR HEMOGLOBIN CONC 32.0 GM/DL 32.3-36.5 L (BEAKER) (test code = 752) RED CELL DISTRIBUTION WIDTH 14.0 % 11.6-14.4 (BEAKER) (test code = 412) PLATELET COUNT (BEAKER) (test 140 K/CU MM 150-450 L code = 756) MEAN PLATELET VOLUME (BEAKER) 9.0 fL 9.4-12.4 L (test code = 754) NUCLEATED RED BLOOD CELLS 0 /100 WBC 0-0 (BEAKER) (test code = 413) NEUTROPHILS RELATIVE PERCENT 67 % (BEAKER) (test code = 429) LYMPHOCYTES RELATIVE PERCENT 14 % (BEAKER) (test code = 430) MONOCYTES RELATIVE PERCENT 16 % (BEAKER) (test code = 431) EOSINOPHILS RELATIVE PERCENT 1 % (BEAKER) (test code = 432) BASOPHILS RELATIVE PERCENT 1 % (BEAKER) (test code = 437) NEUTROPHILS ABSOLUTE COUNT 4.63 K/ L 1.78-5.38 (BEAKER) (test code = 670) LYMPHOCYTES ABSOLUTE COUNT 0.96 K/ L 1.32-3.57 L (BEAKER) (test code = 414) MONOCYTES ABSOLUTE COUNT (BEAKER) 1.13 K/ L 0.30-0.82 H (test code = 415) EOSINOPHILS ABSOLUTE COUNT 0.10 K/ L 0.04-0.54 (BEAKER) (test code = 416) BASOPHILS ABSOLUTE COUNT (BEAKER) 0.05 K/ L 0.01-0.08 (test code = 417) IMMATURE GRANULOCYTES-RELATIVE 0 % 0-1 PERCENT (BEAKER) (test code = 2801) [id number] 05:28:00 Test Item Value Reference Range Interpretation Comments MAGNESIUM (BEAKER) (test code = 1.8 mg/dL 1.6-2.6 627) [id number] 04:47:00 Test Item Value Reference Range Interpretation Comments PARTIAL THROMBOPLASTIN TIME 60.9 seconds 22.5-36.0 H (BEAKER) (test code = 760) PROTHROMBIN [id number] 04:46:00 Test Item Value Reference Range Interpretation Comments PROTIME (BEAKER) (test code = 17.9 seconds 11.7-14.7 H 759) INR (BEAKER) (test code = 370) 1.5 <=5.9 RECOMMENDED COUMADIN/WARFARIN INR THERAPY RANGESSTANDARD DOSE: 2.0 - 3.0 Includes: PROPHYLAXIS forvenous thrombosis, systemic embolization; TREATMENT for venous thrombosis and/or pulmonary embolus.HIGH RISK: Target INR is 2.5-3.5 for patients with mechanical heart valves.[id number] 20:56:00 Test Item Value Reference Range Interpretation Comments PARTIAL THROMBOPLASTIN TIME 52.1 seconds 22.5-36.0 H (J[facility]) (test code = 760) CT, CHEST, WITHOUT [id number] 19:06:00S/p fall in Nov--> right effusion, tapped [...] paratracheal mediastinal lymph node. Signed: Louie Tapia MDRepdamion Verified Date/Time: 08/14/2018 19:06:09 Reading Location: [address] Reading Room APTT 2018-08-14 12:40:00 Test Item Value Reference Range Interpretation Comments PARTIAL THROMBOPLASTIN TIME 48.4 seconds 22.5-36.0 H (JARROD) (test code = 760) CD4 T CELL [id number] 11:15:00 Test Item Value Reference Range Interpretation Comments TOTAL LYMPHOCYTES FC (BEAKER) 935 /cu mm (test code = 3477) CD3+ TOTAL T CELLS % FC (BEAKER) 78 % 49-84 (test code = 3478) CD3+ TOTAL T CELLS ABSOLUTE FC 726 /cu mm 603-2,990 (BEAKER) (test code = 3479) CD3+/CD8+ T SUPPRESSOR CELLS % FC 33 % 10-40 (BEAKER) (test code = 3480) CD3+/CD8+ T SUPPRESSOR CELLS ABS 309 /cu mm 125-1,312 FC (BEAKER) (test code = 3481) CD3+/CD4+ T HELPER CELLS % FC 43 % 28-63 (BEAKER) (test code = 3482) CD3+/CD4+ T HELPER CELLS ABS FC 399 /cu mm 441-2,156 L (BEAKER) (test code = 3483) CD4/CD8 RATIO FC (BEAKER) (test 1.29 0.70-3.23 code = 2127) CD16+/CD56+ NATURAL KILLER CELLS % 11 % 4-25 FC (BEAKER) (test code = 3488) CD16+/CD56+ NATURAL KILLER CELLS 107 /cu mm 95-640 ABS FC (BEAKER) (test code = 3489) CD19+ TOTAL B CELLS % FC (BEAKER) 11 % 6-27 (test code = 3490) CD19+ TOTAL B CELLS ABS FC 101 /cu mm 107-698 L (BEAKER) (test code = 3491) [id number] 10:48:00 Test Item Value Reference Range Interpretation Comments PHOSPHORUS (BEAKER) (test code = 5.2 mg/dL 2.3-4.7 H 604) BASIC METABOLIC [id number] 07:13:00 Test Item Value Reference Range Interpretation Comments SODIUM (BEAKER) 132 meq/L 136-145 L (test code = 381) POTASSIUM (BEAKER) 3.6 meq/L 3.5-5.1 (test code = 379) CHLORIDE (BEAKER) 94 meq/L 98-107 L (test code = 382) CO2 (BEAKER) (test 24 meq/L 22-29 code = 355) BLOOD UREA NITROGEN 49 mg/dL 7-21 H (BEAKER) (test code = 354) CREATININE (BEAKER) 7.61 mg/dL 0.57-1.25 H (test code = 358) GLUCOSE RANDOM 99 mg/dL 70-105 (BEAKER) (test code = 652) CALCIUM (BEAKER) 8.5 mg/dL 8.4-10.2 (test code = 697) EGFR (BEAKER) (test 9 mL/min/1.73 ESTIMAT ED GFR IS code = 1092) sq m NOT ACCURATE CREATININE CLEARANCE IN PREDICTING GLOMERULAR FILTRATION RATE . ESTIMATED GFR I S NOT APPLICABLE FOR DIALYSIS PATIEN TS. [id number] 07:11:00 Test Item Value Reference Range Interpretation Comments MAGNESIUM (BEAKER) (test code = 1.8 mg/dL 1.6-2.6 627) [id number] 07:00:00 Test Item Value Reference Range Interpretation Comments PARTIAL THROMBOPLASTIN TIME 59.2 seconds 22.5-36.0 H (BEAKER) (test code = 760) PROTHROMBIN [id number] 06:59:00 Test Item Value Reference Range Interpretation Comments PROTIME (BEAKER) (test code = 18.1 seconds 11.7-14.7 H 759) INR (BEAKER) (test code = 370) 1.5 <=5.9 RECOMMENDED COUMADIN/WARFARIN INR THERAPY RANGESSTANDARD DOSE: 2.0 - 3.0 Includes: PROPHYLAXIS forvenous thrombosis, systemic embolization; TREATMENT for venous thrombosis and/or pulmonary embolus.HIGH RISK: Target INR is 2.5-3.5 for patients with mechanical heart valves.CBC W/PLT COUNT & AUTO DIFFERENTIAL 2018-08-14 06:57:00 Test Item Value Reference Range Interpretation Comments WHITE BLOOD CELL COUNT (BEAKER) 5.8 K/ L 3.5-10.5 (test code = 775) RED BLOOD CELL COUNT (BEAKER) 3.20 M/ L 4.63-6.08 L (test code = 761) HEMOGLOBIN (BEAKER) (test code = 10.4 GM/DL 13.7-17.5 L 410) HEMATOCRIT (BEAKER) (test code = 32.1 % 40.1-51.0 L 411) MEAN CORPUSCULAR VOLUME (BEAKER) 100.3 fL 79.0-92.2 H (test code = 753) MEAN CORPUSCULAR HEMOGLOBIN 32.5 pg 25.7-32.2 H (BEAKER) (test code = 751) MEAN CORPUSCULAR HEMOGLOBIN CONC 32.4 GM/DL 32.3-36.5 (BEAKER) (test code = 752) RED CELL DISTRIBUTION WIDTH 13.8 % 11.6-14.4 (BEAKER) (test code = 412) PLATELET COUNT (BEAKER) (test 139 K/CU MM 150-450 L code = 756) MEAN PLATELET VOLUME (BEAKER) 9.3 fL 9.4-12.4 L (test code = 754) NUCLEATED RED BLOOD CELLS 0 /100 WBC 0-0 (BEAKER) (test code = 413) NEUTROPHILS RELATIVE PERCENT 65 % (BEAKER) (test code = 429) LYMPHOCYTES RELATIVE PERCENT 16 % (BEAKER) (test code = 430) MONOCYTES RELATIVE PERCENT 17 % (BEAKER) (test code = 431) EOSINOPHILS RELATIVE PERCENT 2 % (BEAKER) (test code = 432) BASOPHILS RELATIVE PERCENT 1 % (BEAKER) (test code = 437) NEUTROPHILS ABSOLUTE COUNT 3.72 K/ L 1.78-5.38 (BEAKER) (test code = 670) LYMPHOCYTES ABSOLUTE COUNT 0.90 K/ L 1.32-3.57 L (BEAKER) (test code = 414) MONOCYTES ABSOLUTE COUNT (BEAKER) 0.98 K/ L 0.30-0.82 H (test code = 415) EOSINOPHILS ABSOLUTE COUNT 0.10 K/ L 0.04-0.54 (BEAKER) (test code = 416) BASOPHILS ABSOLUTE COUNT (BEAKER) 0.04 K/ L 0.01-0.08 (test code = 417) IMMATURE GRANULOCYTES-RELATIVE 1 % 0-1 PERCENT (BEAKER) (test code = 2801) [id number] 00:30:00 Test Item Value Reference Range Interpretation Comments PARTIAL THROMBOPLASTIN TIME 56.7 seconds 22.5-36.0 H (BEAKER) (test code = 760) BODY FLUID CELL COUNT WITH [id number] 19:28:00 Test Item Value Reference Range Interpretation Comments APPEARANCE FLUID (BEAKER) (test Cloudy Clear A code = 510) COLOR FLUID (BEAKER) (test code Red Colorless, Straw A = 511) RBC FLUID (BEAKER) (test code = 07441 /cu mm <=1 H 513) ADJUSTED WBC FLUID (BEAKER) 968 /cu mm <=5 H (test code = 1691) LINING CELLS (BEAKER) (test 0 /cu mm <=1 code = 1590) NEUTROPHILS FLUID (BEAKER) 18 % (test code = 1656) LYMPHS FLUID (BEAKER) (test 61 % code = 488) MONO/MACROPHAGE FLUID (BEAKER) 21 % (test code = 489) EOSINOPHILS FLUID (BEAKER) 0 % (test code = 491) BASO FLUID (BEAKER) (test code 0 % = 492) CONTAINER BODY FLUID (BEAKER) EDTA Tube (test code = 2873) ALBUMIN, BODY [id number] 18:40:00 Test Item Value Reference Range Interpretation Comments ALBUMIN FLUID (BEAKER) (test code = 2.1 gm/dL 501) Reference Range: No Normals Assay performance has not been validated for this type of specimen.LACTATE DEHYDROGENASE (LDH), BODY [id number] 18:40:00 Test Item Value Reference Range Interpretation Comments LACTATE DEHYDROGENASE FLUID (BEAKER) 268 U/L (test code = 634) Absence of reference range indicates that normals have not been defined.Assay performance has not been validated for this type of specimen.GLUCOSE, BODY FLUID 2018-08-13 18:40:00 Test Item Value Reference Range Interpretation Comments GLUCOSE, BODY FLUID (BEAKER) (test 102 mg/dL code = 1528) Absence of reference range indicates that normals have not been defined.Assay performance has not been validated for this type of specimen.LACTATE DEHYDROGENASE (LDH)2018-08-13 18:40:00 Test Item Value Reference Range Interpretation Comments LACTATE DEHYDROGENASE (BEAKER) (test 280 U/L 125-220 H code = 635) HEPATIC FUNCTION [id number] 18:40:00 Test Item Value Reference Range Interpretation Comments TOTAL PROTEIN (BEAKER) (test code = 8.2 gm/dL 6.0-8.3 770) ALBUMIN (BEAKER) (test code = 1145) 3.3 g/dL 3.5-5.0 L BILIRUBIN TOTAL (BEAKER) (test code 1.0 mg/dL 0.2-1.2 = 377) BILIRUBIN DIRECT (BEAKER) (test 0.6 mg/dL 0.1-0.5 H code = 706) ALKALINE PHOSPHATASE (BEAKER) (test 85 U/L 40-150 code = 346) AST (SGOT) (BEAKER) (test code = 38 U/L 5-34 H 353) ALT (SGPT) (BEAKER) (test code = 32 U/L 6-55 347) RAD, CHEST, 1 VIEW, NON [id number] 17:56:00Reason for exam:->post Right thoracentesisShould this be [...] atrial appendage closure. Interstitial edema. Signed: Katherine Arteagacox branson Verified Date/Time: 08/13/2018 17:56:18 Reading Location: [address] Consult Reading Room U/S, [id number] 16:22:00Reason for exam:->shortness of breath, recurrent right pleural effusionShould this be performed at the bedside?->NoFINAL REPORT Ultrasound guided right thoracentesis, 08/13/2018. Clinical History: Right pleural effusion. Modality: Ultrasound. Sedation: None. Spike Driver: [facility]. Repairer Welding Equipment: None. Estimated Blood Loss: 1cc Specimen: 1600 [...] ultrasound guided right thoracentesis. Signed: Moiz Musa Verified Date/Time: 08/13/2018 16:22:16 Reading Location: [facility] [id number] Ultrasound Reading Room [id number] 07:18:00 Test Item Value Reference Range Interpretation Comments MAGNESIUM (BEAKER) (test code = 2.0 mg/dL 1.6-2.6 627) BASIC METABOLIC [id number] 07:18:00 Test Item Value Reference Range Interpretation Comments SODIUM (BEAKER) 134 meq/L 136-145 L (test code = 381) POTASSIUM (BEAKER) 3.6 meq/L 3.5-5.1 (test code = 379) CHLORIDE (BEAKER) 94 meq/L 98-107 L (test code = 382) CO2 (BEAKER) (test 28 meq/L 22-29 code = 355) BLOOD UREA NITROGEN 37 mg/dL 7-21 H (BEAKER) (test code = 354) CREATININE (BEAKER) 5.93 mg/dL 0.57-1.25 H (test code = 358) GLUCOSE RANDOM 101 mg/dL 70-105 (BEAKER) (test code = 652) CALCIUM (BEAKER) 8.9 mg/dL 8.4-10.2 (test code = 697) EGFR (BEAKER) (test 12 mL/min/1.73 ESTIMA JAYLA GFR IS code = 1092) sq m NOT ACCURATE CREATININE CLEARANCE IN PREDICTING GLOMERULAR FILTRATION RATE . ESTIMATED GFR I S NOT APPLICABLE FOR DIALYSIS PATIEN TS. RAD, CHEST, 1 VIEW, NON [id number] 06:25:00Reason for exam:->SOBShould this be performed at [...] Taylor Verified Date/Time: 08/13/2018 06:25:21 Reading Location: [address] ading Room [id number] 05:49:00 Test Item Value Reference Range Interpretation Comments PARTIAL THROMBOPLASTIN TIME 42.0 seconds 22.5-36.0 H (BEAKER) (test code = 760) PROTHROMBIN [id number] 05:48:00 Test Item Value Reference Range Interpretation Comments PROTIME (BEAKER) (test code = 22.1 seconds 11.7-14.7 H 759) INR (BEAKER) (test code = 370) 1.9 <=5.9 RECOMMENDED COUMADIN/WARFARIN INR THERAPY RANGESSTANDARD DOSE: 2.0 - 3.0 Includes: PROPHYLAXIS forvenous thrombosis, systemic embolization; TREATMENT for venous thrombosis and/or pulmonary embolus.HIGH RISK: Target INR is 2.5-3.5 for patients with mechanical heart valves.CBC W/PLT COUNT & AUTO DIFFERENTIAL 2018-08-13 05:37:00 Test Item Value Reference Range Interpretation Comments WHITE BLOOD CELL COUNT (BEAKER) 6.1 K/ L 3.5-10.5 (test code = 775) RED BLOOD CELL COUNT (BEAKER) 3.12 M/ L 4.63-6.08 L (test code = 761) HEMOGLOBIN (BEAKER) (test code = 10.4 GM/DL 13.7-17.5 L 410) HEMATOCRIT (BEAKER) (test code = 31.4 % 40.1-51.0 L 411) MEAN CORPUSCULAR VOLUME (BEAKER) 100.6 fL 79.0-92.2 H (test code = 753) MEAN CORPUSCULAR HEMOGLOBIN 33.3 pg 25.7-32.2 H (BEAKER) (test code = 751) MEAN CORPUSCULAR HEMOGLOBIN CONC 33.1 GM/DL 32.3-36.5 (BEAKER) (test code = 752) RED CELL DISTRIBUTION WIDTH 14.3 % 11.6-14.4 (BEAKER) (test code = 412) PLATELET COUNT (BEAKER) (test 143 K/CU MM 150-450 L code = 756) MEAN PLATELET VOLUME (BEAKER) 9.3 fL 9.4-12.4 L (test code = 754) NUCLEATED RED BLOOD CELLS 0 /100 WBC 0-0 (BEAKER) (test code = 413) NEUTROPHILS RELATIVE PERCENT 64 % (BEAKER) (test code = 429) LYMPHOCYTES RELATIVE PERCENT 13 % (BEAKER) (test code = 430) MONOCYTES RELATIVE PERCENT 21 % (BEAKER) (test code = 431) EOSINOPHILS RELATIVE PERCENT 2 % (BEAKER) (test code = 432) BASOPHILS RELATIVE PERCENT 1 % (BEAKER) (test code = 437) NEUTROPHILS ABSOLUTE COUNT 3.85 K/ L 1.78-5.38 (BEAKER) (test code = 670) LYMPHOCYTES ABSOLUTE COUNT 0.77 K/ L 1.32-3.57 L (BEAKER) (test code = 414) MONOCYTES ABSOLUTE COUNT (BEAKER) 1.27 K/ L 0.30-0.82 H (test code = 415) EOSINOPHILS ABSOLUTE COUNT 0.09 K/ L 0.04-0.54 (BEAKER) (test code = 416) BASOPHILS ABSOLUTE COUNT (BEAKER) 0.05 K/ L 0.01-0.08 (test code = 417) IMMATURE GRANULOCYTES-RELATIVE 0 % 0-1 PERCENT (BEAKER) (test code = 2801) POCT-GLUCOSE [id number] 18:30:00 Test Item Value Reference Range Interpretation Comments POC-GLUCOSE METER 80 mg/dL 70-110 TESTED AT [facility] 6720 (BEAKER) (test code = [facility] [address] 1538) RAD, CHEST, 1 VIEW, NON [id number] 13:46:00Reason for exam:->evaluate pleural effusionShould this be performed at the bedside?->YesFINAL REPORT Comparison: 08/02/2018 TECHNIQUE: Single view of the chest FINDINGS Bilateral interstitial and airspace opacities are stable. Bilateral pleural effusions seen, right greater than left. No gross new lung parenchymal changes. Post surgical changes in the mediastinum. IMPRESSION: No significant interval change. Signed: Kyle Rome MDReport Verified Date/Time: 08/06/2018 13:46:20 Reading Location: [facility] Radiology Reading Room [id number] 09:33:00 Test Item Value Reference Range Interpretation Comments PARTIAL THROMBOPLASTIN TIME 113.6 seconds 22.5-36.0 H (BEAKER) (test code = 760) [id number] 06:48:00 Test Item Value Reference Range Interpretation Comments PROTIME (BEAKER) (test code = 23.2 seconds 11.7-14.7 H 759) INR (BEAKER) (test code = 370) 2.1 <=5.9 PARTIAL THROMBOPLASTIN TIME 164.1 seconds 22.5-36.0 HH (BEAKER) (test code = 760) RECOMMENDED COUMADIN/WARFARIN INR THERAPY RANGESSTANDARD DOSE: 2.0 - 3.0 Includes: PROPHYLAXIS forvenous thrombosis, systemic embolization; TREATMENT for venous thrombosis and/or pulmonary embolus.HIGH RISK: Target INR is 2.5-3.5 for patients with mechanical heart valves.While on warfarin.While on warfarin.BASIC METABOLIC [id number] 06:45:00 Test Item Value Reference Range Interpretation Comments SODIUM (BEAKER) 136 meq/L 136-145 (test code = 381) POTASSIUM (BEAKER) 3.9 meq/L 3.5-5.1 Specimen slightly (test code = 379) hemolyzed CHLORIDE (BEAKER) 98 meq/L 98-107 (test code = 382) CO2 (BEAKER) (test 29 meq/L 22-29 code = 355) BLOOD UREA NITROGEN 27 mg/dL 7-21 H (BEAKER) (test code = 354) CREATININE (BEAKER) 5.78 mg/dL 0.57-1.25 H Specimen slightly (test code = 358) hemolyzed GLUCOSE RANDOM 92 mg/dL 70-105 (BEAKER) (test code = 652) CALCIUM (BEAKER) 9.2 mg/dL 8.4-10.2 (test code = 697) EGFR (BEAKER) (test 12 mL/min/1.73 ESTIMA JAYLA GFR IS code = 1092) sq m NOT ACCURATE CREATININE CLEARANCE IN PREDICTING GLOMERULAR FILTRATION RATE . ESTIMATED GFR I S NOT APPLICABLE FOR DIALYSIS PATIEN TS. PROTHROMBIN [id number] 06:43:00 Test Item Value Reference Range Interpretation Comments PROTIME (BEAKER) (test code = 23.2 seconds 11.7-14.7 H 759) INR (BEAKER) (test code = 370) 2.1 <=5.9 RECOMMENDED COUMADIN/WARFARIN INR THERAPY RANGESSTANDARD DOSE: 2.0 - 3.0 Includes: PROPHYLAXIS forvenous thrombosis, systemic embolization; TREATMENT for venous thrombosis and/or pulmonary embolus.HIGH RISK: Target INR is 2.5-3.5 for patients with mechanical heart valves.CBC W/PLT COUNT & AUTO DIFFERENTIAL 2018-08-06 06:34:00 Test Item Value Reference Range Interpretation Comments WHITE BLOOD CELL COUNT (BEAKER) 6.0 K/ L 3.5-10.5 (test code = 775) RED BLOOD CELL COUNT (BEAKER) 3.40 M/ L 4.63-6.08 L (test code = 761) HEMOGLOBIN (BEAKER) (test code = 11.2 GM/DL 13.7-17.5 L 410) HEMATOCRIT (BEAKER) (test code = 34.2 % 40.1-51.0 L 411) MEAN CORPUSCULAR VOLUME (BEAKER) 100.6 fL 79.0-92.2 H (test code = 753) MEAN CORPUSCULAR HEMOGLOBIN 32.9 pg 25.7-32.2 H (BEAKER) (test code = 751) MEAN CORPUSCULAR HEMOGLOBIN CONC 32.7 GM/DL 32.3-36.5 (BEAKER) (test code = 752) RED CELL DISTRIBUTION WIDTH 14.9 % 11.6-14.4 H (BEAKER) (test code = 412) PLATELET COUNT (BEAKER) (test 117 K/CU MM 150-450 L code = 756) MEAN PLATELET VOLUME (BEAKER) 9.5 fL 9.4-12.4 (test code = 754) NUCLEATED RED BLOOD CELLS 0 /100 WBC 0-0 (BEAKER) (test code = 413) NEUTROPHILS RELATIVE PERCENT 65 % (BEAKER) (test code = 429) LYMPHOCYTES RELATIVE PERCENT 17 % (BEAKER) (test code = 430) MONOCYTES RELATIVE PERCENT 16 % (BEAKER) (test code = 431) EOSINOPHILS RELATIVE PERCENT 2 % (BEAKER) (test code = 432) BASOPHILS RELATIVE PERCENT 1 % (BEAKER) (test code = 437) NEUTROPHILS ABSOLUTE COUNT 3.90 K/ L 1.78-5.38 (BEAKER) (test code = 670) LYMPHOCYTES ABSOLUTE COUNT 1.00 K/ L 1.32-3.57 L (BEAKER) (test code = 414) MONOCYTES ABSOLUTE COUNT (BEAKER) 0.94 K/ L 0.30-0.82 H (test code = 415) EOSINOPHILS ABSOLUTE COUNT 0.13 K/ L 0.04-0.54 (BEAKER) (test code = 416) BASOPHILS ABSOLUTE COUNT (BEAKER) 0.04 K/ L 0.01-0.08 (test code = 417) IMMATURE GRANULOCYTES-RELATIVE 0 % 0-1 PERCENT (BEAKER) (test code = 2801) CBC (HEMOGRAM ONLY)2018-08-06 06:23:00 Test Item Value Reference Range Interpretation Comments WHITE BLOOD CELL COUNT (BEAKER) 6.0 K/ L 3.5-10.5 (test code = 775) RED BLOOD CELL COUNT (BEAKER) 3.40 M/ L 4.63-6.08 L (test code = 761) HEMOGLOBIN (BEAKER) (test code = 11.2 GM/DL 13.7-17.5 L 410) HEMATOCRIT (BEAKER) (test code = 34.2 % 40.1-51.0 L 411) MEAN CORPUSCULAR VOLUME (BEAKER) 100.6 fL 79.0-92.2 H (test code = 753) MEAN CORPUSCULAR HEMOGLOBIN 32.9 pg 25.7-32.2 H (BEAKER) (test code = 751) MEAN CORPUSCULAR HEMOGLOBIN CONC 32.7 GM/DL 32.3-36.5 (BEAKER) (test code = 752) RED CELL DISTRIBUTION WIDTH 14.9 % 11.6-14.4 H (BEAKER) (test code = 412) PLATELET COUNT (BEAKER) (test 117 K/CU MM 150-450 L code = 756) MEAN PLATELET VOLUME (BEAKER) 9.5 fL 9.4-12.4 (test code = 754) NUCLEATED RED BLOOD CELLS 0 /100 WBC 0-0 (BEAKER) (test code = 413) [id number] 20:40:00 Test Item Value Reference Range Interpretation Comments PARTIAL THROMBOPLASTIN TIME 81.7 seconds 22.5-36.0 H (BEAKER) (test code = 760) [id number] 14:05:00 Test Item Value Reference Range Interpretation Comments PARTIAL THROMBOPLASTIN TIME 91.5 seconds 22.5-36.0 H (BEAKER) (test code = 760) BASIC METABOLIC [id number] 07:02:00 Test Item Value Reference Range Interpretation Comments SODIUM (BEAKER) 130 meq/L 136-145 L (test code = 381) POTASSIUM (BEAKER) 4.3 meq/L 3.5-5.1 (test code = 379) CHLORIDE (BEAKER) 97 meq/L 98-107 L (test code = 382) CO2 (BEAKER) (test 19 meq/L 22-29 L code = 355) BLOOD UREA NITROGEN 52 mg/dL 7-21 H (BEAKER) (test code = 354) CREATININE (BEAKER) 8.62 mg/dL 0.57-1.25 H (test code = 358) GLUCOSE RANDOM 75 mg/dL 70-105 (BEAKER) (test code = 652) CALCIUM (BEAKER) 9.3 mg/dL 8.4-10.2 (test code = 697) EGFR (BEAKER) (test 8 mL/min/1.73 ESTIMAT ED GFR IS code = 1092) sq m NOT ACCURATE CREATININE CLEARANCE IN PREDICTING GLOMERULAR FILTRATION RATE . ESTIMATED GFR I S NOT APPLICABLE FOR DIALYSIS PATIEN TS. [id number] 06:47:00 Test Item Value Reference Range Interpretation Comments PROTIME (BEAKER) (test code = 19.8 seconds 11.7-14.7 H 759) INR (BEAKER) (test code = 370) 1.7 <=5.9 PARTIAL THROMBOPLASTIN TIME 44.1 seconds 22.5-36.0 H (BEAKER) (test code = 760) RECOMMENDED COUMADIN/WARFARIN INR THERAPY RANGESSTANDARD DOSE: 2.0 - 3.0 Includes: PROPHYLAXIS forvenous thrombosis, systemic embolization; TREATMENT for venous thrombosis and/or pulmonary embolus.HIGH RISK: Target INR is 2.5-3.5 for patients with mechanical heart valves.Ok to add onOk to add onPROTHROMBIN [id number] 06:46:00 Test Item Value Reference Range Interpretation Comments PROTIME (BEAKER) (test code = 19.8 seconds 11.7-14.7 H 759) INR (BEAKER) (test code = 370) 1.7 <=5.9 RECOMMENDED COUMADIN/WARFARIN INR THERAPY RANGESSTANDARD DOSE: 2.0 - 3.0 Includes: PROPHYLAXIS forvenous thrombosis, systemic embolization; TREATMENT for venous thrombosis and/or pulmonary embolus.HIGH RISK: Target INR is 2.5-3.5 for patients with mechanical heart valves.CBC W/PLT COUNT & AUTO DIFFERENTIAL 2018-08-05 06:38:00 Test Item Value Reference Range Interpretation Comments WHITE BLOOD CELL COUNT (BEAKER) 6.4 K/ L 3.5-10.5 (test code = 775) RED BLOOD CELL COUNT (BEAKER) 3.40 M/ L 4.63-6.08 L (test code = 761) HEMOGLOBIN (BEAKER) (test code = 11.2 GM/DL 13.7-17.5 L 410) HEMATOCRIT (BEAKER) (test code = 33.8 % 40.1-51.0 L 411) MEAN CORPUSCULAR VOLUME (BEAKER) 99.4 fL 79.0-92.2 H (test code = 753) MEAN CORPUSCULAR HEMOGLOBIN 32.9 pg 25.7-32.2 H (BEAKER) (test code = 751) MEAN CORPUSCULAR HEMOGLOBIN CONC 33.1 GM/DL 32.3-36.5 (BEAKER) (test code = 752) RED CELL DISTRIBUTION WIDTH 14.6 % 11.6-14.4 H (BEAKER) (test code = 412) PLATELET COUNT (BEAKER) (test 122 K/CU MM 150-450 L code = 756) MEAN PLATELET VOLUME (BEAKER) 10.1 fL 9.4-12.4 (test code = 754) NUCLEATED RED BLOOD CELLS 0 /100 WBC 0-0 (BEAKER) (test code = 413) NEUTROPHILS RELATIVE PERCENT 62 % (BEAKER) (test code = 429) LYMPHOCYTES RELATIVE PERCENT 20 % (BEAKER) (test code = 430) MONOCYTES RELATIVE PERCENT 15 % (BEAKER) (test code = 431) EOSINOPHILS RELATIVE PERCENT 3 % (BEAKER) (test code = 432) BASOPHILS RELATIVE PERCENT 1 % (BEAKER) (test code = 437) NEUTROPHILS ABSOLUTE COUNT 3.96 K/ L 1.78-5.38 (BEAKER) (test code = 670) LYMPHOCYTES ABSOLUTE COUNT 1.25 K/ L 1.32-3.57 L (BEAKER) (test code = 414) MONOCYTES ABSOLUTE COUNT (BEAKER) 0.93 K/ L 0.30-0.82 H (test code = 415) EOSINOPHILS ABSOLUTE COUNT 0.17 K/ L 0.04-0.54 (BEAKER) (test code = 416) BASOPHILS ABSOLUTE COUNT (BEAKER) 0.04 K/ L 0.01-0.08 (test code = 417) IMMATURE GRANULOCYTES-RELATIVE 0 % 0-1 PERCENT (BEAKER) (test code = 2801) [id number] 16:22:00 Test Item Value Reference Range Interpretation Comments PARTIAL THROMBOPLASTIN TIME 76.1 seconds 22.5-36.0 H (BEAKER) (test code = 760) BODY FLUID CULTURE + GRAM [id number] 09:10:00 Test Item Value Reference Range Interpretation Comments CULTURE (BEAKER) (test code No growth = 1095) GRAM STAIN RESULT (BEAKER) <1+ WBCs (test code = 1123) GRAM STAIN RESULT (BEAKER) No organisms seen (test code = 32165) CBC W/PLT COUNT & AUTO [id number] 07:23:00 Test Item Value Reference Range Interpretation Comments WHITE BLOOD CELL COUNT (BEAKER) 7.1 K/ L 3.5-10.5 (test code = 775) RED BLOOD CELL COUNT (BEAKER) 3.54 M/ L 4.63-6.08 L (test code = 761) HEMOGLOBIN (BEAKER) (test code = 11.6 GM/DL 13.7-17.5 L 410) HEMATOCRIT (BEAKER) (test code = 35.6 % 40.1-51.0 L 411) MEAN CORPUSCULAR VOLUME (BEAKER) 100.6 fL 79.0-92.2 H (test code = 753) MEAN CORPUSCULAR HEMOGLOBIN 32.8 pg 25.7-32.2 H (BEAKER) (test code = 751) MEAN CORPUSCULAR HEMOGLOBIN CONC 32.6 GM/DL 32.3-36.5 (BEAKER) (test code = 752) RED CELL DISTRIBUTION WIDTH 14.7 % 11.6-14.4 H (BEAKER) (test code = 412) PLATELET COUNT (BEAKER) (test 115 K/CU MM 150-450 L code = 756) MEAN PLATELET VOLUME (BEAKER) 9.8 fL 9.4-12.4 (test code = 754) NUCLEATED RED BLOOD CELLS 0 /100 WBC 0-0 (BEAKER) (test code = 413) NEUTROPHILS RELATIVE PERCENT 66 % (BEAKER) (test code = 429) LYMPHOCYTES RELATIVE PERCENT 17 % (BEAKER) (test code = 430) MONOCYTES RELATIVE PERCENT 14 % (BEAKER) (test code = 431) EOSINOPHILS RELATIVE PERCENT 2 % (BEAKER) (test code = 432) BASOPHILS RELATIVE PERCENT 0 % (BEAKER) (test code = 437) NEUTROPHILS ABSOLUTE COUNT 4.67 K/ L 1.78-5.38 (BEAKER) (test code = 670) LYMPHOCYTES ABSOLUTE COUNT 1.23 K/ L 1.32-3.57 L (BEAKER) (test code = 414) MONOCYTES ABSOLUTE COUNT (BEAKER) 1.02 K/ L 0.30-0.82 H (test code = 415) EOSINOPHILS ABSOLUTE COUNT 0.14 K/ L 0.04-0.54 (BEAKER) (test code = 416) BASOPHILS ABSOLUTE COUNT (BEAKER) 0.03 K/ L 0.01-0.08 (test code = 417) IMMATURE GRANULOCYTES-RELATIVE 0 % 0-1 PERCENT (BEAKER) (test code = 2801) CBC (HEMOGRAM ONLY)2018-08-04 07:23:00 Test Item Value Reference Range Interpretation Comments WHITE BLOOD CELL COUNT (BEAKER) 7.1 K/ L 3.5-10.5 (test code = 775) RED BLOOD CELL COUNT (BEAKER) 3.54 M/ L 4.63-6.08 L (test code = 761) HEMOGLOBIN (BEAKER) (test code = 11.6 GM/DL 13.7-17.5 L 410) HEMATOCRIT (BEAKER) (test code = 35.6 % 40.1-51.0 L 411) MEAN CORPUSCULAR VOLUME (BEAKER) 100.6 fL 79.0-92.2 H (test code = 753) MEAN CORPUSCULAR HEMOGLOBIN 32.8 pg 25.7-32.2 H (BEAKER) (test code = 751) MEAN CORPUSCULAR HEMOGLOBIN CONC 32.6 GM/DL 32.3-36.5 (BEAKER) (test code = 752) RED CELL DISTRIBUTION WIDTH 14.7 % 11.6-14.4 H (BEAKER) (test code = 412) PLATELET COUNT (BEAKER) (test 115 K/CU MM 150-450 L code = 756) MEAN PLATELET VOLUME (BEAKER) 9.8 fL 9.4-12.4 (test code = 754) NUCLEATED RED BLOOD CELLS 0 /100 WBC 0-0 (BEAKER) (test code = 413) BASIC METABOLIC [id number] 07:05:00 Test Item Value Reference Range Interpretation Comments SODIUM (BEAKER) 134 meq/L 136-145 L (test code = 381) POTASSIUM (BEAKER) 4.0 meq/L 3.5-5.1 (test code = 379) CHLORIDE (BEAKER) 100 meq/L 98-107 (test code = 382) CO2 (BEAKER) (test 24 meq/L 22-29 code = 355) BLOOD UREA NITROGEN 38 mg/dL 7-21 H (BEAKER) (test code = 354) CREATININE (BEAKER) 7.15 mg/dL 0.57-1.25 H (test code = 358) GLUCOSE RANDOM 92 mg/dL 70-105 (BEAKER) (test code = 652) CALCIUM (BEAKER) 9.5 mg/dL 8.4-10.2 (test code = 697) EGFR (BEAKER) (test 10 mL/min/1.73 ESTIMA JAYLA GFR IS code = 1092) sq m NOT ACCURATE CREATININE CLEARANCE IN PREDICTING GLOMERULAR FILTRATION RATE . ESTIMATED GFR I S NOT APPLICABLE FOR DIALYSIS PATIEN TS. [id number] 06:53:00 Test Item Value Reference Range Interpretation Comments PROTIME (BEAKER) (test code = 17.5 seconds 11.7-14.7 H 759) INR (BEAKER) (test code = 370) 1.4 <=5.9 PARTIAL THROMBOPLASTIN TIME 70.3 seconds 22.5-36.0 H (BEAKER) (test code = 760) RECOMMENDED COUMADIN/WARFARIN INR THERAPY RANGESSTANDARD DOSE: 2.0 - 3.0 Includes: PROPHYLAXIS forvenous thrombosis, systemic embolization; TREATMENT for venous thrombosis and/or pulmonary embolus.HIGH RISK: Target INR is 2.5-3.5 for patients with mechanical heart valves.Ok to add onOk to add [id number] 06:53:00 Test Item Value Reference Range Interpretation Comments PARTIAL THROMBOPLASTIN TIME 70.3 seconds 22.5-36.0 H (BEAKER) (test code = 760) PROTHROMBIN [id number] 06:52:00 Test Item Value Reference Range Interpretation Comments PROTIME (BEAKER) (test code = 17.5 seconds 11.7-14.7 H 759) INR (BEAKER) (test code = 370) 1.4 <=5.9 RECOMMENDED COUMADIN/WARFARIN INR THERAPY RANGESSTANDARD DOSE: 2.0 - 3.0 Includes: PROPHYLAXIS forvenous thrombosis, systemic embolization; TREATMENT for venous thrombosis and/or pulmonary embolus.HIGH RISK: Target INR is 2.5-3.5 for patients with mechanical heart valves.PROTHROMBIN [id number] 06:51:00 Test Item Value Reference Range Interpretation Comments PROTIME (BEAKER) (test code = 17.7 seconds 11.7-14.7 H 759) INR (BEAKER) (test code = 370) 1.5 <=5.9 RECOMMENDED COUMADIN/WARFARIN INR THERAPY RANGESSTANDARD DOSE: 2.0 - 3.0 Includes: PROPHYLAXIS forvenous thrombosis, systemic embolization; TREATMENT for venous thrombosis and/or pulmonary embolus.HIGH RISK: Target INR is 2.5-3.5 for patients with mechanical heart valves.While on warfarin.[id number] 22:47:00 Test Item Value Reference Range Interpretation Comments PARTIAL THROMBOPLASTIN TIME 73.6 seconds 22.5-36.0 H (BEAKER) (test code = 760) [id number] 13:08:00 Test Item Value Reference Range Interpretation Comments PARTIAL THROMBOPLASTIN TIME 49.2 seconds 22.5-36.0 H (BEAKER) (test code = 760) BASIC METABOLIC [id number] 06:56:00 Test Item Value Reference Range Interpretation Comments SODIUM (BEAKER) 135 meq/L 136-145 L (test code = 381) POTASSIUM (BEAKER) 4.2 meq/L 3.5-5.1 (test code = 379) CHLORIDE (BEAKER) 101 meq/L 98-107 (test code = 382) CO2 (BEAKER) (test 26 meq/L 22-29 code = 355) BLOOD UREA NITROGEN 21 mg/dL 7-21 (BEAKER) (test code = 354) CREATININE (BEAKER) 5.04 mg/dL 0.57-1.25 H (test code = 358) GLUCOSE RANDOM 92 mg/dL 70-105 (BEAKER) (test code = 652) CALCIUM (BEAKER) 9.5 mg/dL 8.4-10.2 (test code = 697) EGFR (BEAKER) (test 14 mL/min/1.73 ESTIMA JAYLA GFR IS code = 1092) sq m NOT ACCURATE CREATININE CLEARANCE IN PREDICTING GLOMERULAR FILTRATION RATE . ESTIMATED GFR I S NOT APPLICABLE FOR DIALYSIS PATIEN TS. [id number] 06:56:00 Test Item Value Reference Range Interpretation Comments PARTIAL THROMBOPLASTIN TIME 67.5 seconds 22.5-36.0 H (BEAKER) (test code = 760) [id number] 06:45:00 Test Item Value Reference Range Interpretation Comments PROTIME (BEAKER) (test code = 18.6 seconds 11.7-14.7 H 759) INR (BEAKER) (test code = 370) 1.6 <=5.9 PARTIAL THROMBOPLASTIN TIME 62.0 seconds 22.5-36.0 H (BEAKER) (test code = 760) RECOMMENDED COUMADIN/WARFARIN INR THERAPY RANGESSTANDARD DOSE: 2.0 - 3.0 Includes: PROPHYLAXIS forvenous thrombosis, systemic embolization; TREATMENT for venous thrombosis and/or pulmonary embolus.HIGH RISK: Target INR is 2.5-3.5 for patients with mechanical heart valves.Ok to add onOk to add onPROTHROMBIN [id number] 06:44:00 Test Item Value Reference Range Interpretation Comments PROTIME (BEAKER) (test code = 18.6 seconds 11.7-14.7 H 759) INR (BEAKER) (test code = 370) 1.6 <=5.9 RECOMMENDED COUMADIN/WARFARIN INR THERAPY RANGESSTANDARD DOSE: 2.0 - 3.0 Includes: PROPHYLAXIS forvenous thrombosis, systemic embolization; TREATMENT for venous thrombosis and/or pulmonary embolus.HIGH RISK: Target INR is 2.5-3.5 for patients with mechanical heart valves.CBC W/PLT COUNT & AUTO DIFFERENTIAL 2018-08-03 06:28:00 Test Item Value Reference Range Interpretation Comments WHITE BLOOD CELL COUNT (BEAKER) 6.1 K/ L 3.5-10.5 (test code = 775) RED BLOOD CELL COUNT (BEAKER) 3.44 M/ L 4.63-6.08 L (test code = 761) HEMOGLOBIN (BEAKER) (test code = 11.4 GM/DL 13.7-17.5 L 410) HEMATOCRIT (BEAKER) (test code = 34.9 % 40.1-51.0 L 411) MEAN CORPUSCULAR VOLUME (BEAKER) 101.5 fL 79.0-92.2 H (test code = 753) MEAN CORPUSCULAR HEMOGLOBIN 33.1 pg 25.7-32.2 H (BEAKER) (test code = 751) MEAN CORPUSCULAR HEMOGLOBIN CONC 32.7 GM/DL 32.3-36.5 (BEAKER) (test code = 752) RED CELL DISTRIBUTION WIDTH 14.8 % 11.6-14.4 H (BEAKER) (test code = 412) PLATELET COUNT (BEAKER) (test code 98 K/CU MM 150-450 L = 756) MEAN PLATELET VOLUME (BEAKER) 9.6 fL 9.4-12.4 (test code = 754) NUCLEATED RED BLOOD CELLS (BEAKER) 0 /100 WBC 0-0 (test code = 413) NEUTROPHILS RELATIVE PERCENT 66 % (BEAKER) (test code = 429) LYMPHOCYTES RELATIVE PERCENT 17 % (BEAKER) (test code = 430) MONOCYTES RELATIVE PERCENT 15 % (BEAKER) (test code = 431) EOSINOPHILS RELATIVE PERCENT 2 % (BEAKER) (test code = 432) BASOPHILS RELATIVE PERCENT 1 % (BEAKER) (test code = 437) NEUTROPHILS ABSOLUTE COUNT 3.99 K/ L 1.78-5.38 (BEAKER) (test code = 670) LYMPHOCYTES ABSOLUTE COUNT 1.02 K/ L 1.32-3.57 L (BEAKER) (test code = 414) MONOCYTES ABSOLUTE COUNT (BEAKER) 0.89 K/ L 0.30-0.82 H (test code = 415) EOSINOPHILS ABSOLUTE COUNT 0.12 K/ L 0.04-0.54 (BEAKER) (test code = 416) BASOPHILS ABSOLUTE COUNT (BEAKER) 0.03 K/ L 0.01-0.08 (test code = 417) IMMATURE GRANULOCYTES-RELATIVE 0 % 0-1 PERCENT (BEAKER) (test code = 2801) CBC (HEMOGRAM ONLY)2018-08-03 06:28:00 Test Item Value Reference Range Interpretation Comments WHITE BLOOD CELL COUNT (BEAKER) 6.1 K/ L 3.5-10.5 (test code = 775) RED BLOOD CELL COUNT (BEAKER) 3.44 M/ L 4.63-6.08 L (test code = 761) HEMOGLOBIN (BEAKER) (test code = 11.4 GM/DL 13.7-17.5 L 410) HEMATOCRIT (BEAKER) (test code = 34.9 % 40.1-51.0 L 411) MEAN CORPUSCULAR VOLUME (BEAKER) 101.5 fL 79.0-92.2 H (test code = 753) MEAN CORPUSCULAR HEMOGLOBIN 33.1 pg 25.7-32.2 H (BEAKER) (test code = 751) MEAN CORPUSCULAR HEMOGLOBIN CONC 32.7 GM/DL 32.3-36.5 (BEAKER) (test code = 752) RED CELL DISTRIBUTION WIDTH 14.8 % 11.6-14.4 H (BEAKER) (test code = 412) PLATELET COUNT (BEAKER) (test code 98 K/CU MM 150-450 L = 756) MEAN PLATELET VOLUME (BEAKER) 9.6 fL 9.4-12.4 (test code = 754) NUCLEATED RED BLOOD CELLS (BEAKER) 0 /100 WBC 0-0 (test code = 413) [id number] 02:18:00 Test Item Value Reference Range Interpretation Comments PARTIAL THROMBOPLASTIN TIME 67.1 seconds 22.5-36.0 H (BEAKER) (test code = 760) [id number] 18:56:00 Test Item Value Reference Range Interpretation Comments PARTIAL THROMBOPLASTIN TIME 72.5 seconds 22.5-36.0 H (BEAKER) (test code = 760) POCT-GLUCOSE [id number] 13:08:00 Test Item Value Reference Range Interpretation Comments POC-GLUCOSE METER 121 mg/dL 70-110 H TESTED AT [facility] 6720 (BEAKER) (test code = [place] 1538) [address] [id number] 12:07:00 Test Item Value Reference Range Interpretation Comments PARTIAL THROMBOPLASTIN TIME 50.7 seconds 22.5-36.0 H (BEAKER) (test code = 760) Ok to add onPROTHROMBIN TIME/[id number] 12:05:00 Test Item Value Reference Range Interpretation Comments PROTIME (BEAKER) (test code = 16.7 seconds 11.7-14.7 H 759) INR (BEAKER) (test code = 370) 1.4 <=5.9 RECOMMENDED COUMADIN/WARFARIN INR THERAPY RANGESSTANDARD DOSE: 2.0 - 3.0 Includes: PROPHYLAXIS forvenous thrombosis, systemic embolization; TREATMENT for venous thrombosis and/or pulmonary embolus.HIGH RISK: Target INR is 2.5-3.5 for patients with mechanical heart valves.Ok to add onCBC (HEMOGRAM ONLY)2018-08-02 11:55:00 Test Item Value Reference Range Interpretation Comments WHITE BLOOD CELL COUNT (BEAKER) 5.4 K/ L 3.5-10.5 (test code = 775) RED BLOOD CELL COUNT (BEAKER) 3.35 M/ L 4.63-6.08 L (test code = 761) HEMOGLOBIN (BEAKER) (test code = 11.1 GM/DL 13.7-17.5 L 410) HEMATOCRIT (BEAKER) (test code = 34.1 % 40.1-51.0 L 411) MEAN CORPUSCULAR VOLUME (BEAKER) 101.8 fL 79.0-92.2 H (test code = 753) MEAN CORPUSCULAR HEMOGLOBIN 33.1 pg 25.7-32.2 H (BEAKER) (test code = 751) MEAN CORPUSCULAR HEMOGLOBIN CONC 32.6 GM/DL 32.3-36.5 (BEAKER) (test code = 752) RED CELL DISTRIBUTION WIDTH 14.8 % 11.6-14.4 H (BEAKER) (test code = 412) PLATELET COUNT (BEAKER) (test 115 K/CU MM 150-450 L code = 756) MEAN PLATELET VOLUME (BEAKER) 9.3 fL 9.4-12.4 L (test code = 754) NUCLEATED RED BLOOD CELLS 0 /100 WBC 0-0 (BEAKER) (test code = 413) RAD, CHEST, 1 VIEW, NON [id number] 11:24:00Reason for exam:->pleural effusionShould this be performed at the bedside?->YesFINAL REPORT AP chest HISTORY: Pleural effusion COMPARISON: 08/01/2018 IMPRESS ION:Intact skeleton. Cardiomegaly. Moderate interstitial edema. Moderate right and small left effusions. No pneumothorax. Signed: Mandy Chairez MDReport Verified Date/Time: 08/02/2018 11:24:33 Reading Location: [address] Ortho Consult Reading Room BASIC METABOLIC [id number] 02:55:00 Test Item Value Reference Range Interpretation Comments SODIUM (BEAKER) 134 meq/L 136-145 L (test code = 381) POTASSIUM (BEAKER) 4.5 meq/L 3.5-5.1 (test code = 379) CHLORIDE (BEAKER) 99 meq/L 98-107 (test code = 382) CO2 (BEAKER) (test 23 meq/L 22-29 code = 355) BLOOD UREA NITROGEN 38 mg/dL 7-21 H (BEAKER) (test code = 354) CREATININE (BEAKER) 6.61 mg/dL 0.57-1.25 H (test code = 358) GLUCOSE RANDOM 86 mg/dL 70-105 (BEAKER) (test code = 652) CALCIUM (BEAKER) 9.2 mg/dL 8.4-10.2 (test code = 697) EGFR (BEAKER) (test 10 mL/min/1.73 ESTIMA JAYLA GFR IS code = 1092) sq m NOT ACCURATE CREATININE CLEARANCE IN PREDICTING GLOMERULAR FILTRATION RATE . ESTIMATED GFR I S NOT APPLICABLE FOR DIALYSIS PATIEN TS. [id number] 02:39:00 Test Item Value Reference Range Interpretation Comments PARTIAL THROMBOPLASTIN TIME 51.6 seconds 22.5-36.0 H (BEAKER) (test code = 760) CBC W/PLT COUNT & AUTO [id number] 02:30:00 Test Item Value Reference Range Interpretation Comments WHITE BLOOD CELL COUNT (BEAKER) 5.6 K/ L 3.5-10.5 (test code = 775) RED BLOOD CELL COUNT (BEAKER) 3.49 M/ L 4.63-6.08 L (test code = 761) HEMOGLOBIN (BEAKER) (test code = 11.5 GM/DL 13.7-17.5 L 410) HEMATOCRIT (BEAKER) (test code = 35.1 % 40.1-51.0 L 411) MEAN CORPUSCULAR VOLUME (BEAKER) 100.6 fL 79.0-92.2 H (test code = 753) MEAN CORPUSCULAR HEMOGLOBIN 33.0 pg 25.7-32.2 H (BEAKER) (test code = 751) MEAN CORPUSCULAR HEMOGLOBIN CONC 32.8 GM/DL 32.3-36.5 (BEAKER) (test code = 752) RED CELL DISTRIBUTION WIDTH 14.9 % 11.6-14.4 H (BEAKER) (test code = 412) PLATELET COUNT (BEAKER) (test 117 K/CU MM 150-450 L code = 756) MEAN PLATELET VOLUME (BEAKER) 9.8 fL 9.4-12.4 (test code = 754) NUCLEATED RED BLOOD CELLS 0 /100 WBC 0-0 (BEAKER) (test code = 413) NEUTROPHILS RELATIVE PERCENT 64 % (BEAKER) (test code = 429) LYMPHOCYTES RELATIVE PERCENT 18 % (BEAKER) (test code = 430) MONOCYTES RELATIVE PERCENT 15 % (BEAKER) (test code = 431) EOSINOPHILS RELATIVE PERCENT 2 % (BEAKER) (test code = 432) BASOPHILS RELATIVE PERCENT 1 % (BEAKER) (test code = 437) NEUTROPHILS ABSOLUTE COUNT 3.59 K/ L 1.78-5.38 (BEAKER) (test code = 670) LYMPHOCYTES ABSOLUTE COUNT 1.02 K/ L 1.32-3.57 L (BEAKER) (test code = 414) MONOCYTES ABSOLUTE COUNT (BEAKER) 0.84 K/ L 0.30-0.82 H (test code = 415) EOSINOPHILS ABSOLUTE COUNT 0.13 K/ L 0.04-0.54 (BEAKER) (test code = 416) BASOPHILS ABSOLUTE COUNT (BEAKER) 0.04 K/ L 0.01-0.08 (test code = 417) IMMATURE GRANULOCYTES-RELATIVE 0 % 0-1 PERCENT (BEAKER) (test code = 2801) BODY FLUID CELL COUNT WITH [id number] 21:13:00 Test Item Value Reference Range Interpretation Comments APPEARANCE FLUID (BEAKER) (test Bloody Clear A code = 510) COLOR FLUID (BEAKER) (test code Sunil Colorless, Straw A = 511) RBC FLUID (BEAKER) (test code = 74315 /cu mm <=1 H 513) ADJUSTED WBC FLUID (BEAKER) 462 /cu mm <=5 H (test code = 1691) LINING CELLS (BEAKER) (test 0 /cu mm <=1 code = 1590) NEUTROPHILS FLUID (BEAKER) 1 % (test code = 1656) LYMPHS FLUID (BEAKER) (test 32 % code = 488) MONO/MACROPHAGE FLUID (BEAKER) 67 % (test code = 489) EOSINOPHILS FLUID (BEAKER) 0 % (test code = 491) BASO FLUID (BEAKER) (test code 0 % = 492) CONTAINER BODY FLUID (BEAKER) EDTA Tube (test code = 2873) ALBUMIN, BODY [id number] 20:00:00 Test Item Value Reference Range Interpretation Comments ALBUMIN FLUID (BEAKER) (test code = 2.1 gm/dL 501) Reference Range: No Normals Assay performance has not been validated for this type of specimen.LACTATE DEHYDROGENASE (LDH), BODY [id number] 20:00:00 Test Item Value Reference Range Interpretation Comments LACTATE DEHYDROGENASE FLUID (BEAKER) 216 U/L (test code = 634) Absence of reference range indicates that normals have not been defined.Assay performance has not been validated for this type of specimen.PROTEIN, BODY FLUID 2018-08-01 20:00:00 Test Item Value Reference Range Interpretation Comments PROTEIN FLUID (BEAKER) (test code = 4.6 g/dL 579) Absence of reference range indicates that normals have not been defined.Assay performance has not been validated for this type of specimen.GLUCOSE, BODY FLUID 2018-08-01 20:00:00 Test Item Value Reference Range Interpretation Comments GLUCOSE, BODY FLUID (BEAKER) (test 103 mg/dL code = 1528) Absence of reference range indicates that normals have not been defined.Assay performance has not been validated for this type of specimen.RAD, CHEST, PA OR AP, 1 [id number] 17:08:00Ultrasound Room 1Reason for exam:->s/p Right sided [...] are seen in the spine. Signed: Alonso Vaileport Verified Date/Time: 08/01/2018 17:08:13 Reading Location: [facility] Radiology Reading Room U/S, [id number] 17:03:00 Laterality?->RightReason for exam:->large pleural effusionFINAL REPORT HISTORY: Right pleural effusion Following informed written consent, the patient's right posterior chest wall was prepped and draped in the usual sterile manner. 2% lidocaine was given locally for anesthesia. No conscious sedation was administered. Vital signs were monitored and remained stable. Using ultrasound guidance and a 5 Finnish angiocatheter, access was gain ed to the [...] Seymour Verified Date/Time: 08/01/2018 17:03:15 Reading Location: [facility] [id number] Ultrasound Reading Room RAD, CHEST, 1 VIEW, NON [id number] 12:40:00Reason for exam:->pleural effusion; shortness of breathShould [...] MDReport Verified Date/Time: 08/01/2018 12:40:42 Reading Location: [facility] Radiology Reading Room APTT 2018-08-01 11:33:00 Test Item Value Reference Range Interpretation Comments PARTIAL THROMBOPLASTIN TIME 118.1 seconds 22.5-36.0 H (BEAKER) (test code = 760) BASIC METABOLIC [id number] 02:07:00 Test Item Value Reference Range Interpretation Comments SODIUM (BEAKER) 137 meq/L 136-145 (test code = 381) POTASSIUM (BEAKER) 4.4 meq/L 3.5-5.1 Specimen slightly (test code = 379) hemolyzed CHLORIDE (BEAKER) 100 meq/L 98-107 (test code = 382) CO2 (BEAKER) (test 27 meq/L 22-29 code = 355) BLOOD UREA NITROGEN 26 mg/dL 7-21 H (BEAKER) (test code = 354) CREATININE (BEAKER) 4.73 mg/dL 0.57-1.25 H Specimen slightly (test code = 358) hemolyzed GLUCOSE RANDOM 81 mg/dL 70-105 (BEAKER) (test code = 652) CALCIUM (BEAKER) 8.9 mg/dL 8.4-10.2 (test code = 697) EGFR (BEAKER) (test 15 mL/min/1.73 ESTIMA JAYLA GFR IS code = 1092) sq m NOT ACCURATE CREATININE CLEARANCE IN PREDICTING GLOMERULAR FILTRATION RATE . ESTIMATED GFR I S NOT APPLICABLE FOR DIALYSIS PATIEN TS. [id number] 01:55:00 Test Item Value Reference Range Interpretation Comments PROTIME (BEAKER) (test code = 19.5 seconds 11.7-14.7 H 759) INR (BEAKER) (test code = 370) 1.7 <=5.9 PARTIAL THROMBOPLASTIN TIME 96.8 seconds 22.5-36.0 H (BEAKER) (test code = 760) RECOMMENDED COUMADIN/WARFARIN INR THERAPY RANGESSTANDARD DOSE: 2.0 - 3.0 Includes: PROPHYLAXIS forvenous thrombosis, systemic embolization; TREATMENT for venous thrombosis and/or pulmonary embolus.HIGH RISK: Target INR is 2.5-3.5 for patients with mechanical heart valves.[id number] 01:55:00 Test Item Value Reference Range Interpretation Comments PARTIAL THROMBOPLASTIN TIME 96.8 seconds 22.5-36.0 H (BEAKER) (test code = 760) CBC W/PLT COUNT & AUTO [id number] 01:38:00 Test Item Value Reference Range Interpretation Comments WHITE BLOOD CELL COUNT (BEAKER) 5.5 K/ L 3.5-10.5 (test code = 775) RED BLOOD CELL COUNT (BEAKER) 3.37 M/ L 4.63-6.08 L (test code = 761) HEMOGLOBIN (BEAKER) (test code = 11.2 GM/DL 13.7-17.5 L 410) HEMATOCRIT (BEAKER) (test code = 33.6 % 40.1-51.0 L 411) MEAN CORPUSCULAR VOLUME (BEAKER) 99.7 fL 79.0-92.2 H (test code = 753) MEAN CORPUSCULAR HEMOGLOBIN 33.2 pg 25.7-32.2 H (BEAKER) (test code = 751) MEAN CORPUSCULAR HEMOGLOBIN CONC 33.3 GM/DL 32.3-36.5 (BEAKER) (test code = 752) RED CELL DISTRIBUTION WIDTH 14.7 % 11.6-14.4 H (BEAKER) (test code = 412) PLATELET COUNT (BEAKER) (test 113 K/CU MM 150-450 L code = 756) MEAN PLATELET VOLUME (BEAKER) 9.8 fL 9.4-12.4 (test code = 754) NUCLEATED RED BLOOD CELLS 0 /100 WBC 0-0 (BEAKER) (test code = 413) NEUTROPHILS RELATIVE PERCENT 64 % (BEAKER) (test code = 429) LYMPHOCYTES RELATIVE PERCENT 18 % (BEAKER) (test code = 430) MONOCYTES RELATIVE PERCENT 15 % (BEAKER) (test code = 431) EOSINOPHILS RELATIVE PERCENT 2 % (BEAKER) (test code = 432) BASOPHILS RELATIVE PERCENT 1 % (BEAKER) (test code = 437) NEUTROPHILS ABSOLUTE COUNT 3.50 K/ L 1.78-5.38 (BEAKER) (test code = 670) LYMPHOCYTES ABSOLUTE COUNT 0.97 K/ L 1.32-3.57 L (BEAKER) (test code = 414) MONOCYTES ABSOLUTE COUNT (BEAKER) 0.82 K/ L 0.30-0.82 (test code = 415) EOSINOPHILS ABSOLUTE COUNT 0.11 K/ L 0.04-0.54 (BEAKER) (test code = 416) BASOPHILS ABSOLUTE COUNT (BEAKER) 0.04 K/ L 0.01-0.08 (test code = 417) IMMATURE GRANULOCYTES-RELATIVE 0 % 0-1 PERCENT (BEAKER) (test code = 2801) [id number] 18:58:00 Test Item Value Reference Range Interpretation Comments PARTIAL THROMBOPLASTIN TIME 61.7 seconds 22.5-36.0 H (BEAKER) (test code = 760) [id number] 09:22:00 Test Item Value Reference Range Interpretation Comments PARTIAL THROMBOPLASTIN TIME 61.5 seconds 22.5-36.0 H (BEAKER) (test code = 760) BASIC METABOLIC [id number] 02:14:00 Test Item Value Reference Range Interpretation Comments SODIUM (BEAKER) 130 meq/L 136-145 L (test code = 381) POTASSIUM (BEAKER) 4.1 meq/L 3.5-5.1 (test code = 379) CHLORIDE (BEAKER) 93 meq/L 98-107 L (test code = 382) CO2 (BEAKER) (test 24 meq/L -29 code = 355) BLOOD UREA NITROGEN 39 mg/dL 7-21 H (BEAKER) (test code = 354) CREATININE (BEAKER) 6.56 mg/dL 0.57-1.25 H (test code = 358) GLUCOSE RANDOM 84 mg/dL 70-105 (BEAKER) (test code = 652) CALCIUM (BEAKER) 8.5 mg/dL 8.4-10.2 (test code = 697) EGFR (BEAKER) (test 11 mL/min/1.73 ESTIMA JAYLA GFR IS code = 1092) sq m NOT ACCURATE CREATININE CLEARANCE IN PREDICTING GLOMERULAR FILTRATION RATE . ESTIMATED GFR I S NOT APPLICABLE FOR DIALYSIS PATIEN TS. [id number] 01:43:00 Test Item Value Reference Range Interpretation Comments PROTIME (BEAKER) (test code = 21.8 seconds 11.7-14.7 H 759) INR (BEAKER) (test code = 370) 1.9 <=5.9 PARTIAL THROMBOPLASTIN TIME 62.7 seconds 22.5-36.0 H (BEAKER) (test code = 760) RECOMMENDED COUMADIN/WARFARIN INR THERAPY RANGESSTANDARD DOSE: 2.0 - 3.0 Includes: PROPHYLAXIS forvenous thrombosis, systemic embolization; TREATMENT for venous thrombosis and/or pulmonary embolus.HIGH RISK: Target INR is 2.5-3.5 for patients with mechanical heart valves.[id number] 01:43:00 Test Item Value Reference Range Interpretation Comments PARTIAL THROMBOPLASTIN TIME 62.7 seconds 22.5-36.0 H (BEAKER) (test code = 760) CBC W/PLT COUNT & AUTO [id number] 01:32:00 Test Item Value Reference Range Interpretation Comments WHITE BLOOD CELL COUNT (BEAKER) 5.9 K/ L 3.5-10.5 (test code = 775) RED BLOOD CELL COUNT (BEAKER) 3.41 M/ L 4.63-6.08 L (test code = 761) HEMOGLOBIN (BEAKER) (test code = 11.1 GM/DL 13.7-17.5 L 410) HEMATOCRIT (BEAKER) (test code = 33.7 % 40.1-51.0 L 411) MEAN CORPUSCULAR VOLUME (BEAKER) 98.8 fL 79.0-92.2 H (test code = 753) MEAN CORPUSCULAR HEMOGLOBIN 32.6 pg 25.7-32.2 H (BEAKER) (test code = 751) MEAN CORPUSCULAR HEMOGLOBIN CONC 32.9 GM/DL 32.3-36.5 (BEAKER) (test code = 752) RED CELL DISTRIBUTION WIDTH 14.7 % 11.6-14.4 H (BEAKER) (test code = 412) PLATELET COUNT (BEAKER) (test 132 K/CU MM 150-450 L code = 756) MEAN PLATELET VOLUME (BEAKER) 10.0 fL 9.4-12.4 (test code = 754) NUCLEATED RED BLOOD CELLS 0 /100 WBC 0-0 (BEAKER) (test code = 413) NEUTROPHILS RELATIVE PERCENT 64 % (BEAKER) (test code = 429) LYMPHOCYTES RELATIVE PERCENT 19 % (BEAKER) (test code = 430) MONOCYTES RELATIVE PERCENT 14 % (BEAKER) (test code = 431) EOSINOPHILS RELATIVE PERCENT 2 % (BEAKER) (test code = 432) BASOPHILS RELATIVE PERCENT 1 % (BEAKER) (test code = 437) NEUTROPHILS ABSOLUTE COUNT 3.80 K/ L 1.78-5.38 (BEAKER) (test code = 670) LYMPHOCYTES ABSOLUTE COUNT 1.14 K/ L 1.32-3.57 L (BEAKER) (test code = 414) MONOCYTES ABSOLUTE COUNT (BEAKER) 0.80 K/ L 0.30-0.82 (test code = 415) EOSINOPHILS ABSOLUTE COUNT 0.13 K/ L 0.04-0.54 (BEAKER) (test code = 416) BASOPHILS ABSOLUTE COUNT (BEAKER) 0.05 K/ L 0.01-0.08 (test code = 417) IMMATURE GRANULOCYTES-RELATIVE 0 % 0-1 PERCENT (BEAKER) (test code = 2801) [id number] 18:38:00 Test Item Value Reference Range Interpretation Comments PARTIAL THROMBOPLASTIN TIME 38.9 seconds 22.5-36.0 H (BEAKER) (test code = 760) Prior to initiating heparinPLATELET [id number] 18:17:00 Test Item Value Reference Range Interpretation Comments PLATELET COUNT (BEAKER) (test 115 K/CU MM 150-450 L code = 756) RAD, CHEST, 2 [id number] 18:05:00Reason for exam:->sob and pleural effusionFINAL REPORT [...] Sykes MDReport Verified Date/Time: 07/30/2018 18:05:46Reading Location: [facility] B1 [id number] Consult Reading Room C METABOLIC [id number] 05:26:00 Test Item Value Reference Range Interpretation Comments SODIUM (BEAKER) 137 meq/L 136-145 (test code = 381) POTASSIUM (BEAKER) 3.9 meq/L 3.5-5.1 (test code = 379) CHLORIDE (BEAKER) 99 meq/L 98-107 (test code = 382) CO2 (BEAKER) (test 29 meq/L 22-29 code = 355) BLOOD UREA NITROGEN 27 mg/dL 7-21 H (BEAKER) (test code = 354) CREATININE (BEAKER) 5.10 mg/dL 0.57-1.25 H (test code = 358) GLUCOSE RANDOM 81 mg/dL 70-105 (BEAKER) (test code = 652) CALCIUM (BEAKER) 8.7 mg/dL 8.4-10.2 (test code = 697) EGFR (BEAKER) (test 14 mL/min/1.73 ESTIMA JAYLA GFR IS code = 1092) sq m NOT ACCURATE CREATININE CLEARANCE IN PREDICTING GLOMERULAR FILTRATION RATE . ESTIMATED GFR I S NOT APPLICABLE FOR DIALYSIS PATIEN TS. PT/[id number] 05:25:00 Test Item Value Reference Range Interpretation Comments PROTIME (BEAKER) (test code = 21.4 seconds 11.7-14.7 H 759) INR (BEAKER) (test code = 370) 1.9 <=5.9 PARTIAL THROMBOPLASTIN TIME 38.6 seconds 22.5-36.0 H (BEAKER) (test code = 760) RECOMMENDED COUMADIN/WARFARIN INR THERAPY RANGESSTANDARD DOSE: 2.0 - 3.0 Includes: PROPHYLAXIS forvenous thrombosis, systemic embolization; TREATMENT for venous thrombosis and/or pulmonary embolus.HIGH RISK: Target INR is 2.5-3.5 for patients with mechanical heart valves.PROTHROMBIN TIME/[id number] 05:24:00 Test Item Value Reference Range Interpretation Comments PROTIME (BEAKER) (test code = 21.4 seconds 11.7-14.7 H 759) INR (BEAKER) (test code = 370) 1.9 <=5.9 RECOMMENDED COUMADIN/WARFARIN INR THERAPY RANGESSTANDARD DOSE: 2.0 - 3.0 Includes: PROPHYLAXIS forvenous thrombosis, systemic embolization; TREATMENT for venous thrombosis and/or pulmonary embolus.HIGH RISK: Target INR is 2.5-3.5 for patients with mechanical heart valves.CBC W/PLT COUNT & AUTO DIFFERENTIAL 2018-07-30 05:12:00 Test Item Value Reference Range Interpretation Comments WHITE BLOOD CELL COUNT (BEAKER) 4.4 K/ L 3.5-10.5 (test code = 775) RED BLOOD CELL COUNT (BEAKER) 3.39 M/ L 4.63-6.08 L (test code = 761) HEMOGLOBIN (BEAKER) (test code = 10.9 GM/DL 13.7-17.5 L 410) HEMATOCRIT (BEAKER) (test code = 34.4 % 40.1-51.0 L 411) MEAN CORPUSCULAR VOLUME (BEAKER) 101.5 fL 79.0-92.2 H (test code = 753) MEAN CORPUSCULAR HEMOGLOBIN 32.2 pg 25.7-32.2 (BEAKER) (test code = 751) MEAN CORPUSCULAR HEMOGLOBIN CONC 31.7 GM/DL 32.3-36.5 L (BEAKER) (test code = 752) RED CELL DISTRIBUTION WIDTH 15.1 % 11.6-14.4 H (BEAKER) (test code = 412) PLATELET COUNT (BEAKER) (test code 98 K/CU MM 150-450 L = 756) MEAN PLATELET VOLUME (BEAKER) 8.8 fL 9.4-12.4 L (test code = 754) NUCLEATED RED BLOOD CELLS (BEAKER) 0 /100 WBC 0-0 (test code = 413) NEUTROPHILS RELATIVE PERCENT 58 % (BEAKER) (test code = 429) LYMPHOCYTES RELATIVE PERCENT 20 % (BEAKER) (test code = 430) MONOCYTES RELATIVE PERCENT 19 % (BEAKER) (test code = 431) EOSINOPHILS RELATIVE PERCENT 2 % (BEAKER) (test code = 432) BASOPHILS RELATIVE PERCENT 1 % (BEAKER) (test code = 437) NEUTROPHILS ABSOLUTE COUNT 2.55 K/ L 1.78-5.38 (BEAKER) (test code = 670) LYMPHOCYTES ABSOLUTE COUNT 0.87 K/ L 1.32-3.57 L (BEAKER) (test code = 414) MONOCYTES ABSOLUTE COUNT (BEAKER) 0.82 K/ L 0.30-0.82 (test code = 415) EOSINOPHILS ABSOLUTE COUNT 0.10 K/ L 0.04-0.54 (BEAKER) (test code = 416) BASOPHILS ABSOLUTE COUNT (BEAKER) 0.03 K/ L 0.01-0.08 (test code = 417) IMMATURE GRANULOCYTES-RELATIVE 1 % 0-1 PERCENT (BEAKER) (test code = 2801) HEPATITIS B SURFACE [id number] 12:09:00 Test Item Value Reference Range Interpretation Comments HEPATITIS B SURFACE ANTIGEN (2) Nonreactive Nonreactive (BEAKER) (test code = 2585) POCT-GLUCOSE [id number] 07:50:00 Test Item Value Reference Range Interpretation Comments POC-GLUCOSE METER 93 mg/dL 70-110 TESTED AT [facility] 6720 (BEAKER) (test code = FOSTER Paul [facility] [address] 1538) PT/[id number] 04:59:00 Test Item Value Reference Range Interpretation Comments PROTIME (BEAKER) (test code = 20.8 seconds 11.7-14.7 H 759) INR (BEAKER) (test code = 370) 1.8 <=5.9 PARTIAL THROMBOPLASTIN TIME 46.4 seconds 22.5-36.0 H (BEAKER) (test code = 760) RECOMMENDED COUMADIN/WARFARIN INR THERAPY RANGESSTANDARD DOSE: 2.0 - 3.0 Includes: PROPHYLAXIS forvenous thrombosis, systemic embolization; TREATMENT for venous thrombosis and/or pulmonary embolus.HIGH RISK: Target INR is 2.5-3.5 for patients with mechanical heart valves.BASIC METABOLIC [id number] 04:59:00 Test Item Value Reference Range Interpretation Comments SODIUM (BEAKER) 137 meq/L 136-145 (test code = 381) POTASSIUM (BEAKER) 3.4 meq/L 3.5-5.1 L (test code = 379) CHLORIDE (BEAKER) 96 meq/L 98-107 L (test code = 382) CO2 (BEAKER) (test 28 meq/L 22-29 code = 355) BLOOD UREA NITROGEN 44 mg/dL 7-21 H (BEAKER) (test code = 354) CREATININE (BEAKER) 7.25 mg/dL 0.57-1.25 H (test code = 358) GLUCOSE RANDOM 98 mg/dL 70-105 (BEAKER) (test code = 652) CALCIUM (BEAKER) 8.8 mg/dL 8.4-10.2 (test code = 697) EGFR (BEAKER) (test 9 mL/min/1.73 ESTIMAT ED GFR IS code = 1092) sq m NOT ACCURATE CREATININE CLEARANCE IN PREDICTING GLOMERULAR FILTRATION RATE . ESTIMATED GFR I S NOT APPLICABLE FOR DIALYSIS PATIEN TS. CBC W/PLT COUNT & AUTO [id number] 04:51:00 Test Item Value Reference Range Interpretation Comments WHITE BLOOD CELL COUNT (BEAKER) 5.1 K/ L 3.5-10.5 (test code = 775) RED BLOOD CELL COUNT (BEAKER) 3.27 M/ L 4.63-6.08 L (test code = 761) HEMOGLOBIN (BEAKER) (test code = 10.6 GM/DL 13.7-17.5 L 410) HEMATOCRIT (BEAKER) (test code = 32.8 % 40.1-51.0 L 411) MEAN CORPUSCULAR VOLUME (BEAKER) 100.3 fL 79.0-92.2 H (test code = 753) MEAN CORPUSCULAR HEMOGLOBIN 32.4 pg 25.7-32.2 H (BEAKER) (test code = 751) MEAN CORPUSCULAR HEMOGLOBIN CONC 32.3 GM/DL 32.3-36.5 (BEAKER) (test code = 752) RED CELL DISTRIBUTION WIDTH 14.9 % 11.6-14.4 H (BEAKER) (test code = 412) PLATELET COUNT (BEAKER) (test 108 K/CU MM 150-450 L code = 756) MEAN PLATELET VOLUME (BEAKER) 9.7 fL 9.4-12.4 (test code = 754) NUCLEATED RED BLOOD CELLS 0 /100 WBC 0-0 (BEAKER) (test code = 413) NEUTROPHILS RELATIVE PERCENT 56 % (BEAKER) (test code = 429) LYMPHOCYTES RELATIVE PERCENT 24 % (BEAKER) (test code = 430) MONOCYTES RELATIVE PERCENT 17 % (BEAKER) (test code = 431) EOSINOPHILS RELATIVE PERCENT 2 % (BEAKER) (test code = 432) BASOPHILS RELATIVE PERCENT 1 % (BEAKER) (test code = 437) NEUTROPHILS ABSOLUTE COUNT 2.86 K/ L 1.78-5.38 (BEAKER) (test code = 670) LYMPHOCYTES ABSOLUTE COUNT 1.21 K/ L 1.32-3.57 L (BEAKER) (test code = 414) MONOCYTES ABSOLUTE COUNT (BEAKER) 0.87 K/ L 0.30-0.82 H (test code = 415) EOSINOPHILS ABSOLUTE COUNT 0.12 K/ L 0.04-0.54 (BEAKER) (test code = 416) BASOPHILS ABSOLUTE COUNT (BEAKER) 0.05 K/ L 0.01-0.08 (test code = 417) IMMATURE GRANULOCYTES-RELATIVE 0 % 0-1 PERCENT (BEAKER) (test code = 2801) AFB CULTURE + [id number] 16:13:00 Test Item Value Reference Range Interpretation Comments CULTURE (BEAKER) (test No acid-fast bacilli code = 1095) isolated in 42 days AFB SMEAR (BEAKER) No acid fast bacilli (test code = 994) seen AFB CULTURE + [id number] 16:13:00 Test Item Value Reference Range Interpretation Comments CULTURE (BEAKER) (test No acid-fast bacilli code = 1095) isolated in 42 days AFB SMEAR (BEAKER) No acid fast bacilli (test code = 994) seen FUNGUS CULTURE + [id number] 07:13:00 Test Item Value Reference Range Interpretation Comments CULTURE (BEAKER) (test No fungus isolated in code = 1095) 28 days FUNGUS SMEAR (BEAKER) No fungi seen (test code = 1406) FUNGUS CULTURE + [id number] 07:13:00 Test Item Value Reference Range Interpretation Comments CULTURE (BEAKER) (test No fungus isolated in code = 1095) 28 days FUNGUS SMEAR (BEAKER) No fungi seen (test code = 1406) TISSUE [id number] 19:17:00Surgical Pathology Report Case: [id number] Authorizing Provider: Juliana Martinez MD Collected: 05/23/2018 0825 Ordering Location: [facility] PERIOPERATIVE Received: 05/23/2018 0923 SERVICES Pathologist: Brigida Parks MD Specimen: SoftTissue, Other, LEFT GROIN - TISSUE BIOPSY SKIN AND SOFT TISSUE,GROIN,LEFT, BIOPSY: - ABSCESSES, GRANULOMAS AND CHRONIC INFLAMMATION - NEGATIVE FOR DYSPLASIA OR MALIGNANCY - AFB AND GMS STAINS ARE NEGATIVE (SEE COMMENT) Signing Pathologist Direct Phone Line: [phone] signed by Brigida Parks MD on 06/02/2018 at 7:17 PMCorrelation with culture studies is recommended.[id number] abscess groinLeft groin tissue biopsyReceived fresh labeled "soft tissue, other", description "left groin tissue biopsy" are two dark-porter, wrinkled,hair- bearing strips of skin measuring 1.5 and 2.6 cm in length, 0.3 cm in diameter and excised to a depth of 0.3 cm.Sectioning reveals no discrete masses.The specimen is entirely submitted in cassettesA1. DB/ewPOCT-GLUCOSE [id number] 08:51:00 Test Item Value Reference Range Interpretation Comments POC-GLUCOSE METER 101 mg/dL 70-110 TESTED AT [facility] 6720 ([facility]) (test code = FOSTER Paul [place] 1538) [id number] CBC W/PLT COUNT & AUTO [id number] 06:01:00 Test Item Value Reference Range Interpretation Comments WHITE BLOOD CELL COUNT (BEAKER) 7.1 K/ L 3.5-10.5 (test code = 775) RED BLOOD CELL COUNT (BEAKER) 3.50 M/ L 4.63-6.08 L (test code = 761) HEMOGLOBIN (BEAKER) (test code = 10.7 GM/DL 13.7-17.5 L 410) HEMATOCRIT (BEAKER) (test code = 33.4 % 40.1-51.0 L 411) MEAN CORPUSCULAR VOLUME (AKER) 95.4 fL 79.0-92.2 H (test code = 753) MEAN CORPUSCULAR HEMOGLOBIN 30.6 pg 25.7-32.2 (BEAKER) (test code = 751) MEAN CORPUSCULAR HEMOGLOBIN CONC 32.0 GM/DL 32.3-36.5 L (BEAKER) (test code = 752) RED CELL DISTRIBUTION WIDTH 17.5 % 11.6-14.4 H (BEAKER) (test code = 412) PLATELET COUNT (BEAKER) (test 159 K/CU MM 150-450 code = 756) MEAN PLATELET VOLUME (BEAKER) 9.8 fL 9.4-12.4 (test code = 754) NUCLEATED RED BLOOD CELLS 1 /100 WBC 0-0 H (BEAKER) (test code = 413) NEUTROPHILS RELATIVE PERCENT 66 % (BEAKER) (test code = 429) LYMPHOCYTES RELATIVE PERCENT 20 % (BEAKER) (test code = 430) MONOCYTES RELATIVE PERCENT 11 % (BEAKER) (test code = 431) EOSINOPHILS RELATIVE PERCENT 1 % (BEAKER) (test code = 432) BASOPHILS RELATIVE PERCENT 1 % (BEAKER) (test code = 437) NEUTROPHILS ABSOLUTE COUNT 4.70 K/ L 1.78-5.38 (BEAKER) (test code = 670) LYMPHOCYTES ABSOLUTE COUNT 1.39 K/ L 1.32-3.57 (BEAKER) (test code = 414) MONOCYTES ABSOLUTE COUNT (BEAKER) 0.78 K/ L 0.30-0.82 (test code = 415) EOSINOPHILS ABSOLUTE COUNT 0.10 K/ L 0.04-0.54 (BEAKER) (test code = 416) BASOPHILS ABSOLUTE COUNT (BEAKER) 0.08 K/ L 0.01-0.08 (test code = 417) IMMATURE GRANULOCYTES-RELATIVE 1 % 0-1 PERCENT (BEAKER) (test code = 2801) PROTHROMBIN [id number] 05:51:00 Test Item Value Reference Range Interpretation Comments PROTIME (BEAKER) (test code = 25.9 seconds 11.7-14.7 H 759) INR (BEAKER) (test code = 370) 2.4 <=5.9 RECOMMENDED COUMADIN/WARFARIN INR THERAPY RANGESSTANDARD DOSE: 2.0 - 3.0 Includes: PROPHYLAXIS forvenous thrombosis, systemic embolization; TREATMENT for venous thrombosis and/or pulmonary embolus.HIGH RISK: Target INR is 2.5-3.5 for patients with mechanical heart valves.BASIC METABOLIC [id number] 05:46:00 Test Item Value Reference Range Interpretation Comments SODIUM (BEAKER) 134 meq/L 136-145 L (test code = 381) POTASSIUM (BEAKER) 4.1 meq/L 3.5-5.1 (test code = 379) CHLORIDE (BEAKER) 98 meq/L 98-107 (test code = 382) CO2 (BEAKER) (test 27 meq/L 22-29 code = 355) BLOOD UREA NITROGEN 28 mg/dL 7-21 H (BEAKER) (test code = 354) CREATININE (BEAKER) 5.07 mg/dL 0.57-1.25 H (test code = 358) GLUCOSE RANDOM 110 mg/dL 70-105 H (BEAKER) (test code = 652) CALCIUM (BEAKER) 9.0 mg/dL 8.4-10.2 (test code = 697) EGFR (BEAKER) (test 14 mL/min/1.73 ESTIMA JAYLA GFR IS code = 1092) sq m NOT ACCURATE CREATININE CLEARANCE IN PREDICTING GLOMERULAR FILTRATION RATE . ESTIMATED GFR I S NOT APPLICABLE FOR DIALYSIS PATIEN TS. POCT-GLUCOSE [id number] 20:34:00 Test Item Value Reference Range Interpretation Comments POC-GLUCOSE METER 261 mg/dL 70-110 H TESTED AT [place] [id number] ([facility]) (test code = [facility] 1538) [id number] POCT-GLUCOSE [id number] 18:12:00 Test Item Value Reference Range Interpretation Comments POC-GLUCOSE METER 139 mg/dL 70-110 H TESTED AT [place] [address] ([facility]) (test code = [facility] 1538) [id number] POCT-GLUCOSE [id number] 11:51:00 Test Item Value Reference Range Interpretation Comments POC-GLUCOSE METER 147 mg/dL 70-110 H TESTED AT [place] [address] ([facility]) (test code = [facility] 1538) [id number] POCT-GLUCOSE [id number] 08:42:00 Test Item Value Reference Range Interpretation Comments POC-GLUCOSE METER 104 mg/dL 70-110 TESTED AT [place] [address] ([facility]) (test code = [facility] 1538) [id number] CBC W/PLT COUNT & AUTO [id number] 06:56:00 Test Item Value Reference Range Interpretation Comments WHITE BLOOD CELL COUNT (BEAKER) 8.0 K/ L 3.5-10.5 (test code = 775) RED BLOOD CELL COUNT (BEAKER) 3.40 M/ L 4.63-6.08 L (test code = 761) HEMOGLOBIN (BEAKER) (test code = 10.2 GM/DL 13.7-17.5 L 410) HEMATOCRIT (BEAKER) (test code = 32.0 % 40.1-51.0 L 411) MEAN CORPUSCULAR VOLUME (BEAKER) 94.1 fL 79.0-92.2 H (test code = 753) MEAN CORPUSCULAR HEMOGLOBIN 30.0 pg 25.7-32.2 (BEAKER) (test code = 751) MEAN CORPUSCULAR HEMOGLOBIN CONC 31.9 GM/DL 32.3-36.5 L (BEAKER) (test code = 752) RED CELL DISTRIBUTION WIDTH 17.1 % 11.6-14.4 H (BEAKER) (test code = 412) PLATELET COUNT (BEAKER) (test 167 K/CU MM 150-450 code = 756) MEAN PLATELET VOLUME (BEAKER) 9.3 fL 9.4-12.4 L (test code = 754) NUCLEATED RED BLOOD CELLS 1 /100 WBC 0-0 H (BEAKER) (test code = 413) NEUTROPHILS RELATIVE PERCENT 69 % (BEAKER) (test code = 429) LYMPHOCYTES RELATIVE PERCENT 17 % (BEAKER) (test code = 430) MONOCYTES RELATIVE PERCENT 11 % (BEAKER) (test code = 431) EOSINOPHILS RELATIVE PERCENT 2 % (BEAKER) (test code = 432) BASOPHILS RELATIVE PERCENT 1 % (BEAKER) (test code = 437) NEUTROPHILS ABSOLUTE COUNT 5.54 K/ L 1.78-5.38 H (BEAKER) (test code = 670) LYMPHOCYTES ABSOLUTE COUNT 1.33 K/ L 1.32-3.57 (BEAKER) (test code = 414) MONOCYTES ABSOLUTE COUNT (BEAKER) 0.87 K/ L 0.30-0.82 H (test code = 415) EOSINOPHILS ABSOLUTE COUNT 0.12 K/ L 0.04-0.54 (BEAKER) (test code = 416) BASOPHILS ABSOLUTE COUNT (BEAKER) 0.06 K/ L 0.01-0.08 (test code = 417) IMMATURE GRANULOCYTES-RELATIVE 1 % 0-1 PERCENT (BEAKER) (test code = 2801) BASIC METABOLIC [id number] 06:49:00 Test Item Value Reference Range Interpretation Comments SODIUM (BEAKER) 130 meq/L 136-145 L (test code = 381) POTASSIUM (BEAKER) 4.3 meq/L 3.5-5.1 (test code = 379) CHLORIDE (BEAKER) 93 meq/L 98-107 L (test code = 382) CO2 (BEAKER) (test 25 meq/L 22-29 code = 355) BLOOD UREA NITROGEN 41 mg/dL 7-21 H (BEAKER) (test code = 354) CREATININE (BEAKER) 6.65 mg/dL 0.57-1.25 H (test code = 358) GLUCOSE RANDOM 113 mg/dL 70-105 H (BEAKER) (test code = 652) CALCIUM (BEAKER) 8.9 mg/dL 8.4-10.2 (test code = 697) EGFR (BEAKER) (test 10 mL/min/1.73 ESTIMA JAYLA GFR IS code = 1092) sq m NOT ACCURATE CREATININE CLEARANCE IN PREDICTING GLOMERULAR FILTRATION RATE . ESTIMATED GFR I S NOT APPLICABLE FOR DIALYSIS PATIEN TS. PROTHROMBIN [id number] 06:46:00 Test Item Value Reference Range Interpretation Comments PROTIME (BEAKER) (test code = 26.9 seconds 11.7-14.7 H 759) INR (BEAKER) (test code = 370) 2.5 <=5.9 RECOMMENDED COUMADIN/WARFARIN INR THERAPY RANGESSTANDARD DOSE: 2.0 - 3.0 Includes: PROPHYLAXIS forvenous thrombosis, systemic embolization; TREATMENT for venous thrombosis and/or pulmonary embolus.HIGH RISK: Target INR is 2.5-3.5 for patients with mechanical heart valves.ANAEROBIC [id number] 00:38:00 Test Item Value Reference Range Interpretation Comments CULTURE (BEAKER) (test No anaerobes isolated code = 1095) ANAEROBIC [id number] 00:38:00 Test Item Value Reference Range Interpretation Comments CULTURE (BEAKER) (test No anaerobes isolated code = 1095) POCT-GLUCOSE [id number] 20:43:00 Test Item Value Reference Range Interpretation Comments POC-GLUCOSE METER 124 mg/dL 70-110 H TESTED AT [facility] [address] ([facility]) (test code = [address] [place] 1538) [id number] POCT-GLUCOSE [id number] 17:17:00 Test Item Value Reference Range Interpretation Comments POC-GLUCOSE METER 190 mg/dL 70-110 H TESTED AT [facility] [address] ([facility]) (test code = [address] [place] 1538) [address] POCT-GLUCOSE [id number] 11:54:00 Test Item Value Reference Range Interpretation Comments POC-GLUCOSE METER 195 mg/dL 70-110 H TESTED AT [facility] [address] ([facility]) (test code = [address] [place] 1538) [address] C. DIFFICILE GDH [id number] 11:16:00 Test Item Value Reference Range Interpretation Comments CDT TOXIN (test code Negative Negative = [id number]) CDT GDH ANTIGEN (test Negative Negative No ind ication of code = [id number]) Clostridi um difficile infection and n o colonization. Discontinue ent kenrick isolation and t herapy. Testing performed by [employer] Rapid Cassette Assay. For GDH, published sensitivity of the assay is 98.7% compared to cytotoxicity testing. For Toxin AB, published sensitivity is 87.8% and specificity 99.4% compared to cytotoxicity testing.Verification of kit performance was done by the [facility]biology Lab prior to clinical use.SURGICALLY OBTAINED CULTURE + GRAM [id number] 09:22:00 Test Item Value Reference Interpretation Comments Range CULTURE (BEAKER) COAGULASE NEGATIVE A <1+ C oagulase (test code = 1095) STAPHYLOCOCCUS negativ e Staphylococcus Clindamycin (test S code = 10) Erythromycin (test S code = 4) Linezolid (test code S = 40) Nitrofurantoin (test S code = 23) Oxacillin (test code R = 14) Rifampin (test code = S 43) Tetracycline (test S code = 2) Trimethoprim + R Sulfamethoxazole (test code = 47) Vancomycin (test code S = 13) GRAM STAIN RESULT 1+ WBCs (BEAKER) (test code = 1123) GRAM STAIN RESULT No organisms seen (BEAKER) (test code = 026382) SURGICALLY OBTAINED CULTURE + GRAM [id number] 09:20:00 Test Item Value Reference Range Interpretation Comments CULTURE (BEAKER) (test code No growth = 1095) GRAM STAIN RESULT (BEAKER) 4+ WBCs (test code = 1123) GRAM STAIN RESULT (BEAKER) No organisms seen (test code = 96772) POCT-GLUCOSE [id number] 08:21:00 Test Item Value Reference Range Interpretation Comments POC-GLUCOSE METER 101 mg/dL 70-110 TESTED AT [facility] [address] (BEAKER) (test code = [address] [place] 1538) [address] BASIC METABOLIC [id number] 07:57:00 Test Item Value Reference Range Interpretation Comments SODIUM (BEAKER) 135 meq/L 136-145 L (test code = 381) POTASSIUM (BEAKER) 3.9 meq/L 3.5-5.1 (test code = 379) CHLORIDE (BEAKER) 96 meq/L 98-107 L (test code = 382) CO2 (BEAKER) (test 26 meq/L 22-29 code = 355) BLOOD UREA NITROGEN 29 mg/dL 7-21 H (BEAKER) (test code = 354) CREATININE (BEAKER) 5.49 mg/dL 0.57-1.25 H (test code = 358) GLUCOSE RANDOM 100 mg/dL 70-105 (BEAKER) (test code = 652) CALCIUM (BEAKER) 9.1 mg/dL 8.4-10.2 (test code = 697) EGFR (BEAKER) (test 13 mL/min/1.73 ESTIMA JAYLA GFR IS code = 1092) sq m NOT ACCURATE CREATININE CLEARANCE IN PREDICTING GLOMERULAR FILTRATION RATE . ESTIMATED GFR I S NOT APPLICABLE FOR DIALYSIS PATIEN TS. PROTHROMBIN [id number] 06:36:00 Test Item Value Reference Range Interpretation Comments PROTIME (BEAKER) (test code = 25.3 seconds 11.7-14.7 H 759) INR (BEAKER) (test code = 370) 2.3 <=5.9 RECOMMENDED COUMADIN/WARFARIN INR THERAPY RANGESSTANDARD DOSE: 2.0 - 3.0 Includes: PROPHYLAXIS forvenous thrombosis, systemic embolization; TREATMENT for venous thrombosis and/or pulmonary embolus.HIGH RISK: Target INR is 2.5-3.5 for patients with mechanical heart valves.CBC W/PLT COUNT & AUTO DIFFERENTIAL 2018-05-26 06:27:00 Test Item Value Reference Range Interpretation Comments WHITE BLOOD CELL COUNT (BEAKER) 7.3 K/ L 3.5-10.5 (test code = 775) RED BLOOD CELL COUNT (BEAKER) 3.29 M/ L 4.63-6.08 L (test code = 761) HEMOGLOBIN (BEAKER) (test code = 9.8 GM/DL 13.7-17.5 L 410) HEMATOCRIT (BEAKER) (test code = 30.9 % 40.1-51.0 L 411) MEAN CORPUSCULAR VOLUME (BEAKER) 93.9 fL 79.0-92.2 H (test code = 753) MEAN CORPUSCULAR HEMOGLOBIN 29.8 pg 25.7-32.2 (BEAKER) (test code = 751) MEAN CORPUSCULAR HEMOGLOBIN CONC 31.7 GM/DL 32.3-36.5 L (BEAKER) (test code = 752) RED CELL DISTRIBUTION WIDTH 16.9 % 11.6-14.4 H (BEAKER) (test code = 412) PLATELET COUNT (BEAKER) (test 153 K/CU MM 150-450 code = 756) MEAN PLATELET VOLUME (BEAKER) 9.1 fL 9.4-12.4 L (test code = 754) NUCLEATED RED BLOOD CELLS 0 /100 WBC 0-0 (BEAKER) (test code = 413) NEUTROPHILS RELATIVE PERCENT 66 % (BEAKER) (test code = 429) LYMPHOCYTES RELATIVE PERCENT 16 % (BEAKER) (test code = 430) MONOCYTES RELATIVE PERCENT 15 % (BEAKER) (test code = 431) EOSINOPHILS RELATIVE PERCENT 2 % (BEAKER) (test code = 432) BASOPHILS RELATIVE PERCENT 1 % (BEAKER) (test code = 437) NEUTROPHILS ABSOLUTE COUNT 4.75 K/ L 1.78-5.38 (BEAKER) (test code = 670) LYMPHOCYTES ABSOLUTE COUNT 1.14 K/ L 1.32-3.57 L (BEAKER) (test code = 414) MONOCYTES ABSOLUTE COUNT (BEAKER) 1.05 K/ L 0.30-0.82 H (test code = 415) EOSINOPHILS ABSOLUTE COUNT 0.13 K/ L 0.04-0.54 (BEAKER) (test code = 416) BASOPHILS ABSOLUTE COUNT (BEAKER) 0.07 K/ L 0.01-0.08 (test code = 417) IMMATURE GRANULOCYTES-RELATIVE 2 % 0-1 H PERCENT (BEAKER) (test code = 2801) POCT-GLUCOSE [id number] 21:40:00 Test Item Value Reference Range Interpretation Comments POC-GLUCOSE METER 176 mg/dL 70-110 H TESTED AT [facility] [address] ([facility]) (test code = [facility] 1538) [address] POCT-GLUCOSE [id number] 16:07:00 Test Item Value Reference Range Interpretation Comments POC-GLUCOSE METER 120 mg/dL 70-110 H TESTED AT [place] [address] ([facility]) (test code = [facility] 1538) [address] POCT-GLUCOSE [id number] 08:31:00 Test Item Value Reference Range Interpretation Comments POC-GLUCOSE METER 119 mg/dL 70-110 H TESTED AT [place] [address] ([facility]) (test code = [facility] 1538) [address] BASIC METABOLIC [id number] 08:19:00 Test Item Value Reference Range Interpretation Comments SODIUM (BEAKER) 133 meq/L 136-145 L (test code = 381) POTASSIUM (BEAKER) 3.8 meq/L 3.5-5.1 (test code = 379) CHLORIDE (BEAKER) 97 meq/L 98-107 L (test code = 382) CO2 (BEAKER) (test 26 meq/L 22-29 code = 355) BLOOD UREA NITROGEN 19 mg/dL 7-21 (BEAKER) (test code = 354) CREATININE (BEAKER) 4.05 mg/dL 0.57-1.25 H (test code = 358) GLUCOSE RANDOM 107 mg/dL 70-105 H (BEAKER) (test code = 652) CALCIUM (BEAKER) 9.0 mg/dL 8.4-10.2 (test code = 697) EGFR (BEAKER) (test 18 mL/min/1.73 ESTIMA JAYLA GFR IS code = 1092) sq m NOT ACCURATE CREATININE CLEARANCE IN PREDICTING GLOMERULAR FILTRATION RATE . ESTIMATED GFR I S NOT APPLICABLE FOR DIALYSIS PATIEN TS. VANCOMYCIN LEVEL, [id number] 08:16:00 Test Item Value Reference Range Interpretation Comments VANCOMYCIN RANDOM (BEAKER) (test 17.6 ug/mL code = 523) Reference Range: No NormalsPROTHROMBIN [id number] 07:21:00 Test Item Value Reference Range Interpretation Comments PROTIME (BEAKER) (test code = 22.0 seconds 11.7-14.7 H 759) INR (BEAKER) (test code = 370) 1.9 <=5.9 RECOMMENDED COUMADIN/WARFARIN INR THERAPY RANGESSTANDARD DOSE: 2.0 - 3.0 Includes: PROPHYLAXIS forvenous thrombosis, systemic embolization; TREATMENT for venous thrombosis and/or pulmonary embolus.HIGH RISK: Target INR is 2.5-3.5 for patients with mechanical heart valves.CBC W/PLT COUNT & AUTO DIFFERENTIAL 2018-05-25 07:02:00 Test Item Value Reference Range Interpretation Comments WHITE BLOOD CELL COUNT (BEAKER) 8.2 K/ L 3.5-10.5 (test code = 775) RED BLOOD CELL COUNT (BEAKER) 3.46 M/ L 4.63-6.08 L (test code = 761) HEMOGLOBIN (BEAKER) (test code = 10.4 GM/DL 13.7-17.5 L 410) HEMATOCRIT (BEAKER) (test code = 32.8 % 40.1-51.0 L 411) MEAN CORPUSCULAR VOLUME (BEAKER) 94.8 fL 79.0-92.2 H (test code = 753) MEAN CORPUSCULAR HEMOGLOBIN 30.1 pg 25.7-32.2 (BEAKER) (test code = 751) MEAN CORPUSCULAR HEMOGLOBIN CONC 31.7 GM/DL 32.3-36.5 L (BEAKER) (test code = 752) RED CELL DISTRIBUTION WIDTH 16.7 % 11.6-14.4 H (BEAKER) (test code = 412) PLATELET COUNT (BEAKER) (test 167 K/CU MM 150-450 code = 756) MEAN PLATELET VOLUME (BEAKER) 9.7 fL 9.4-12.4 (test code = 754) NUCLEATED RED BLOOD CELLS 0 /100 WBC 0-0 (BEAKER) (test code = 413) NEUTROPHILS RELATIVE PERCENT 69 % (BEAKER) (test code = 429) LYMPHOCYTES RELATIVE PERCENT 13 % (BEAKER) (test code = 430) MONOCYTES RELATIVE PERCENT 12 % (BEAKER) (test code = 431) EOSINOPHILS RELATIVE PERCENT 2 % (BEAKER) (test code = 432) BASOPHILS RELATIVE PERCENT 1 % (BEAKER) (test code = 437) NEUTROPHILS ABSOLUTE COUNT 5.72 K/ L 1.78-5.38 H (BEAKER) (test code = 670) LYMPHOCYTES ABSOLUTE COUNT 1.07 K/ L 1.32-3.57 L (BEAKER) (test code = 414) MONOCYTES ABSOLUTE COUNT (BEAKER) 1.02 K/ L 0.30-0.82 H (test code = 415) EOSINOPHILS ABSOLUTE COUNT 0.18 K/ L 0.04-0.54 (BEAKER) (test code = 416) BASOPHILS ABSOLUTE COUNT (BEAKER) 0.07 K/ L 0.01-0.08 (test code = 417) IMMATURE GRANULOCYTES-RELATIVE 2 % 0-1 H PERCENT (BEAKER) (test code = 2801) BLOOD [id number] 06:00:00 Test Item Value Reference Range Interpretation Comments CULTURE (BEAKER) (test No growth in 5 days code = 1095) BLOOD [id number] 00:00:00 Test Item Value Reference Range Interpretation Comments CULTURE (BEAKER) (test No growth in 5 days code = 1095) POCT-GLUCOSE [id number] 22:05:00 Test Item Value Reference Range Interpretation Comments POC-GLUCOSE METER 169 mg/dL 70-110 H TESTED AT [place] [address] (BEAKER) (test code = [facility] 1538) [address] POCT-GLUCOSE [id number] 18:20:00 Test Item Value Reference Range Interpretation Comments POC-GLUCOSE METER 110 mg/dL 70-110 TESTED AT [place] [address] (BEAKER) (test code = [facility] 1538) [address] POCT-GLUCOSE [id number] 17:17:00 Test Item Value Reference Range Interpretation Comments POC-GLUCOSE METER 99 mg/dL 70-110 TESTED AT [place] [address] ([facility]) (test code = [facility] [id number] 1538) SPIN/CONCENTRATION [id number] 14:49:00 Test Item Value Reference Range Interpretation Comments CONCENTRATION CHARGED (BEAKER) (test Done code = 2657) SPIN/CONCENTRATION [id number] 14:49:00 Test Item Value Reference Range Interpretation Comments CONCENTRATION CHARGED (BEAKER) (test Done code = 2657) POCT-GLUCOSE [id number] 12:13:00 Test Item Value Reference Range Interpretation Comments POC-GLUCOSE METER 188 mg/dL 70-110 H TESTED AT [place] [address] ([facility]) (test code = [address] [place] 1538) [address] BASIC METABOLIC [id number] 09:56:00 Test Item Value Reference Range Interpretation Comments SODIUM (BEAKER) 132 meq/L 136-145 L (test code = 381) POTASSIUM (BEAKER) 4.1 meq/L 3.5-5.1 (test code = 379) CHLORIDE (BEAKER) 96 meq/L 98-107 L (test code = 382) CO2 (BEAKER) (test 24 meq/L 22-29 code = 355) BLOOD UREA NITROGEN 30 mg/dL 7-21 H (BEAKER) (test code = 354) CREATININE (BEAKER) 5.66 mg/dL 0.57-1.25 H (test code = 358) GLUCOSE RANDOM 98 mg/dL 70-105 (BEAKER) (test code = 652) CALCIUM (BEAKER) 8.7 mg/dL 8.4-10.2 (test code = 697) EGFR (BEAKER) (test 12 mL/min/1.73 ESTIMA JAYLA GFR IS code = 1092) sq m NOT ACCURATE CREATININE CLEARANCE IN PREDICTING GLOMERULAR FILTRATION RATE . ESTIMATED GFR I S NOT APPLICABLE FOR DIALYSIS PATIEN TS. POCT-GLUCOSE [id number] 07:45:00 Test Item Value Reference Range Interpretation Comments POC-GLUCOSE METER 108 mg/dL 70-110 TESTED AT [place] [address] ([facility]) (test code = [address] [facility] 1538) [address] CBC W/PLT COUNT & AUTO [id number] 07:00:00 Test Item Value Reference Range Interpretation Comments WHITE BLOOD CELL COUNT (BEAKER) 11.1 K/ L 3.5-10.5 H (test code = 775) RED BLOOD CELL COUNT (BEAKER) 3.30 M/ L 4.63-6.08 L (test code = 761) HEMOGLOBIN (BEAKER) (test code = 10.0 GM/DL 13.7-17.5 L 410) HEMATOCRIT (BEAKER) (test code = 31.4 % 40.1-51.0 L 411) MEAN CORPUSCULAR VOLUME (BEAKER) 95.2 fL 79.0-92.2 H (test code = 753) MEAN CORPUSCULAR HEMOGLOBIN 30.3 pg 25.7-32.2 (BEAKER) (test code = 751) MEAN CORPUSCULAR HEMOGLOBIN CONC 31.8 GM/DL 32.3-36.5 L (BEAKER) (test code = 752) RED CELL DISTRIBUTION WIDTH 16.3 % 11.6-14.4 H (BEAKER) (test code = 412) PLATELET COUNT (BEAKER) (test 166 K/CU MM 150-450 code = 756) MEAN PLATELET VOLUME (BEAKER) 9.4 fL 9.4-12.4 (test code = 754) NUCLEATED RED BLOOD CELLS 0 /100 WBC 0-0 (BEAKER) (test code = 413) NEUTROPHILS RELATIVE PERCENT 72 % (BEAKER) (test code = 429) LYMPHOCYTES RELATIVE PERCENT 11 % (BEAKER) (test code = 430) MONOCYTES RELATIVE PERCENT 12 % (BEAKER) (test code = 431) EOSINOPHILS RELATIVE PERCENT 2 % (BEAKER) (test code = 432) BASOPHILS RELATIVE PERCENT 1 % (BEAKER) (test code = 437) NEUTROPHILS ABSOLUTE COUNT 7.96 K/ L 1.78-5.38 H (BEAKER) (test code = 670) LYMPHOCYTES ABSOLUTE COUNT 1.25 K/ L 1.32-3.57 L (BEAKER) (test code = 414) MONOCYTES ABSOLUTE COUNT (BEAKER) 1.27 K/ L 0.30-0.82 H (test code = 415) EOSINOPHILS ABSOLUTE COUNT 0.23 K/ L 0.04-0.54 (BEAKER) (test code = 416) BASOPHILS ABSOLUTE COUNT (BEAKER) 0.07 K/ L 0.01-0.08 (test code = 417) IMMATURE GRANULOCYTES-RELATIVE 3 % 0-1 H PERCENT (BEAKER) (test code = 2800) PROTHROMBIN [id number] 06:47:00 Test Item Value Reference Range Interpretation Comments PROTIME (BEAKER) (test code = 20.7 seconds 11.7-14.7 H 759) INR (BEAKER) (test code = 370) 1.8 <=5.9 RECOMMENDED COUMADIN/WARFARIN INR THERAPY RANGESSTANDARD DOSE: 2.0 - 3.0 Includes: PROPHYLAXIS forvenous thrombosis, systemic embolization; TREATMENT for venous thrombosis and/or pulmonary embolus.HIGH RISK: Target INR is 2.5-3.5 for patients with mechanical heart valves.POCT-GLUCOSE [id number] 20:42:00 Test Item Value Reference Range Interpretation Comments POC-GLUCOSE METER 134 mg/dL 70-110 H TESTED AT [facility] 67 ([facility]) (test code = [facility] 1538) [address] POCT-GLUCOSE [id number] 13:29:00 Test Item Value Reference Range Interpretation Comments POC-GLUCOSE METER 209 mg/dL 70-110 H TESTED AT [place] [address] ([facility]) (test code = [facility] 1538) [address] POCT-GLUCOSE [id number] 08:53:00 Test Item Value Reference Range Interpretation Comments POC-GLUCOSE METER 103 mg/dL 70-110 TESTED AT [place] [address] ([facility]) (test code = [facility] 1538) [address] BASIC METABOLIC [id number] 07:47:00 Test Item Value Reference Range Interpretation Comments SODIUM (BEAKER) 136 meq/L 136-145 (test code = 381) POTASSIUM (BEAKER) 4.0 meq/L 3.5-5.1 (test code = 379) CHLORIDE (BEAKER) 100 meq/L 98-107 (test code = 382) CO2 (BEAKER) (test 27 meq/L 22-29 code = 355) BLOOD UREA NITROGEN 22 mg/dL 7-21 H (BEAKER) (test code = 354) CREATININE (BEAKER) 4.63 mg/dL 0.57-1.25 H (test code = 358) GLUCOSE RANDOM 111 mg/dL 70-105 H (BEAKER) (test code = 652) CALCIUM (BEAKER) 8.7 mg/dL 8.4-10.2 (test code = 697) EGFR (BEAKER) (test 16 mL/min/1.73 ESTIMA JAYLA GFR IS code = 1092) sq m NOT ACCURATE CREATININE CLEARANCE IN PREDICTING GLOMERULAR FILTRATION RATE . ESTIMATED GFR I S NOT APPLICABLE FOR DIALYSIS PATIEN TS. WOUND CULTURE + GRAM [id number] 07:44:00 Test Item Value Reference Range Interpretation Comments CULTURE (BEAKER) (test code No growth = 1095) GRAM STAIN RESULT (BEAKER) No WBCs (test code = 1123) GRAM STAIN RESULT (BEAKER) No organisms seen (test code = 51371) [id number] 07:38:00 Test Item Value Reference Range Interpretation Comments PHOSPHORUS (BEAKER) (test code = 3.2 mg/dL 2.3-4.7 604) CBC W/PLT COUNT & AUTO [id number] 06:35:00 Test Item Value Reference Range Interpretation Comments WHITE BLOOD CELL COUNT (BEAKER) 11.0 K/ L 3.5-10.5 H (test code = 775) RED BLOOD CELL COUNT (BEAKER) 3.30 M/ L 4.63-6.08 L (test code = 761) HEMOGLOBIN (BEAKER) (test code = 9.9 GM/DL 13.7-17.5 L 410) HEMATOCRIT (BEAKER) (test code = 31.2 % 40.1-51.0 L 411) MEAN CORPUSCULAR VOLUME (BEAKER) 94.5 fL 79.0-92.2 H (test code = 753) MEAN CORPUSCULAR HEMOGLOBIN 30.0 pg 25.7-32.2 (BEAKER) (test code = 751) MEAN CORPUSCULAR HEMOGLOBIN CONC 31.7 GM/DL 32.3-36.5 L (BEAKER) (test code = 752) RED CELL DISTRIBUTION WIDTH 16.1 % 11.6-14.4 H (BEAKER) (test code = 412) PLATELET COUNT (BEAKER) (test 184 K/CU MM 150-450 code = 756) MEAN PLATELET VOLUME (BEAKER) 9.5 fL 9.4-12.4 (test code = 754) NUCLEATED RED BLOOD CELLS 0 /100 WBC 0-0 (BEAKER) (test code = 413) NEUTROPHILS RELATIVE PERCENT 79 % (BEAKER) (test code = 429) LYMPHOCYTES RELATIVE PERCENT 8 % (BEAKER) (test code = 430) MONOCYTES RELATIVE PERCENT 8 % (BEAKER) (test code = 431) EOSINOPHILS RELATIVE PERCENT 2 % (BEAKER) (test code = 432) BASOPHILS RELATIVE PERCENT 1 % (BEAKER) (test code = 437) NEUTROPHILS ABSOLUTE COUNT 8.70 K/ L 1.78-5.38 H (BEAKER) (test code = 670) LYMPHOCYTES ABSOLUTE COUNT 0.86 K/ L 1.32-3.57 L (BEAKER) (test code = 414) MONOCYTES ABSOLUTE COUNT (BEAKER) 0.91 K/ L 0.30-0.82 H (test code = 415) EOSINOPHILS ABSOLUTE COUNT 0.24 K/ L 0.04-0.54 (BEAKER) (test code = 416) BASOPHILS ABSOLUTE COUNT (BEAKER) 0.08 K/ L 0.01-0.08 (test code = 417) IMMATURE GRANULOCYTES-RELATIVE 2 % 0-1 H PERCENT (BEAKER) (test code = 2801) PROTHROMBIN [id number] 06:32:00 Test Item Value Reference Range Interpretation Comments PROTIME ([facility]) (test code = 23.2 seconds 11.7-14.7 H 759) INR ([facility]) (test code = 370) 2.1 <=5.9 RECOMMENDED COUMADIN/WARFARIN INR THERAPY RANGESSTANDARD DOSE: 2.0 - 3.0 Includes: PROPHYLAXIS forvenous thrombosis, systemic embolization; TREATMENT for venous thrombosis and/or pulmonary embolus.HIGH RISK: Target INR is 2.5-3.5 for patients with mechanical heart valves.POCT-GLUCOSE [id number] 21:21:00 Test Item Value Reference Range Interpretation Comments POC-GLUCOSE METER 177 mg/dL 70-110 H TESTED AT [place] [address] ([facility]) (test code = [facility] 1538) [id number] POCT-GLUCOSE [id number] 17:53:00 Test Item Value Reference Range Interpretation Comments POC-GLUCOSE METER 89 mg/dL 70-110 TESTED AT [place] [address] ([facility]) (test code = [facility] [address] 1538) IRON, TIBC, % SAT. (WITHOUT FERRITIN)2018-05-22 17:45:00 Test Item Value Reference Range Interpretation Comments IRON (BEAKER) (test code = 547) 63 ug/dL 40-160 TOTAL IRON BINDING CAPACITY 203 ug/dL 250-450 L ([facility]) (test code = 769) IRON % SATURATION (2) (AKER) 31 % 20-55 (test code = 2590) [id number] 16:07:00 Test Item Value Reference Range Interpretation Comments PHOSPHORUS ([facility]) (test code = 5.4 mg/dL 2.3-4.7 H 604) POCT-GLUCOSE [id number] 12:41:00 Test Item Value Reference Range Interpretation Comments POC-GLUCOSE METER 110 mg/dL 70-110 TESTED AT [facility] 6720 (BEAKER) (test code = [place] 1538) [id number] POCT-GLUCOSE [id number] 07:00:00 Test Item Value Reference Range Interpretation Comments POC-GLUCOSE METER 159 mg/dL 70-110 H TESTED AT [facility] 67[address] (BEAKER) (test code = [place] 1538) [id number] BASIC METABOLIC [id number] 05:19:00 Test Item Value Reference Range Interpretation Comments SODIUM (BEAKER) 136 meq/L 136-145 (test code = 381) POTASSIUM (BEAKER) 3.6 meq/L 3.5-5.1 (test code = 379) CHLORIDE (BEAKER) 98 meq/L 98-107 (test code = 382) CO2 (BEAKER) (test 26 meq/L 22-29 code = 355) BLOOD UREA NITROGEN 33 mg/dL 7-21 H (BEAKER) (test code = 354) CREATININE (BEAKER) 6.38 mg/dL 0.57-1.25 H (test code = 358) GLUCOSE RANDOM 122 mg/dL 70-105 H (BEAKER) (test code = 652) CALCIUM (BEAKER) 8.4 mg/dL 8.4-10.2 (test code = 697) EGFR (BEAKER) (test 11 mL/min/1.73 ESTIMA JAYLA GFR IS code = 1092) sq m NOT ACCURATE CREATININE CLEARANCE IN PREDICTING GLOMERULAR FILTRATION RATE . ESTIMATED GFR I S NOT APPLICABLE FOR DIALYSIS PATIEN TS. [id number] 05:18:00 Test Item Value Reference Range Interpretation Comments MAGNESIUM (BEAKER) (test code = 1.9 mg/dL 1.6-2.6 627) PROTHROMBIN [id number] 05:03:00 Test Item Value Reference Range Interpretation Comments PROTIME (BEAKER) (test code = 30.2 seconds 11.7-14.7 H 759) INR (BEAKER) (test code = 370) 2.9 <=5.9 RECOMMENDED COUMADIN/WARFARIN INR THERAPY RANGESSTANDARD DOSE: 2.0 - 3.0 Includes: PROPHYLAXIS forvenous thrombosis, systemic embolization; TREATMENT for venous thrombosis and/or pulmonary embolus.HIGH RISK: Target INR is 2.5-3.5 for patients with mechanical heart valves.CBC W/PLT COUNT & AUTO DIFFERENTIAL 2018-05-22 04:51:00 Test Item Value Reference Range Interpretation Comments WHITE BLOOD CELL COUNT (BEAKER) 10.2 K/ L 3.5-10.5 (test code = 775) RED BLOOD CELL COUNT (BEAKER) 3.27 M/ L 4.63-6.08 L (test code = 761) HEMOGLOBIN (BEAKER) (test code = 9.7 GM/DL 13.7-17.5 L 410) HEMATOCRIT (BEAKER) (test code = 30.5 % 40.1-51.0 L 411) MEAN CORPUSCULAR VOLUME (BEAKER) 93.3 fL 79.0-92.2 H (test code = 753) MEAN CORPUSCULAR HEMOGLOBIN 29.7 pg 25.7-32.2 (BEAKER) (test code = 751) MEAN CORPUSCULAR HEMOGLOBIN CONC 31.8 GM/DL 32.3-36.5 L (BEAKER) (test code = 752) RED CELL DISTRIBUTION WIDTH 15.8 % 11.6-14.4 H (BEAKER) (test code = 412) PLATELET COUNT (BEAKER) (test 181 K/CU MM 150-450 code = 756) MEAN PLATELET VOLUME (BEAKER) 9.4 fL 9.4-12.4 (test code = 754) NUCLEATED RED BLOOD CELLS 0 /100 WBC 0-0 (BEAKER) (test code = 413) NEUTROPHILS RELATIVE PERCENT 78 % (BEAKER) (test code = 429) LYMPHOCYTES RELATIVE PERCENT 8 % (BEAKER) (test code = 430) MONOCYTES RELATIVE PERCENT 10 % (BEAKER) (test code = 431) EOSINOPHILS RELATIVE PERCENT 2 % (BEAKER) (test code = 432) BASOPHILS RELATIVE PERCENT 1 % (BEAKER) (test code = 437) NEUTROPHILS ABSOLUTE COUNT 7.90 K/ L 1.78-5.38 H (BEAKER) (test code = 670) LYMPHOCYTES ABSOLUTE COUNT 0.86 K/ L 1.32-3.57 L (BEAKER) (test code = 414) MONOCYTES ABSOLUTE COUNT (BEAKER) 1.01 K/ L 0.30-0.82 H (test code = 415) EOSINOPHILS ABSOLUTE COUNT 0.17 K/ L 0.04-0.54 ([facility]) (test code = 416) BASOPHILS ABSOLUTE COUNT ([facility]) 0.07 K/ L 0.01-0.08 (test code = 417) IMMATURE GRANULOCYTES-RELATIVE 2 % 0-1 H PERCENT ([facility]) (test code = 2801) POCT-GLUCOSE [id number] 23:35:00 Test Item Value Reference Range Interpretation Comments POC-GLUCOSE METER 190 mg/dL 70-110 H TESTED AT [facility] 6720 ([facility]) (test code = FOSTER Paul [facility] 1538) [id number] POCT-GLUCOSE [id number] 17:16:00 Test Item Value Reference Range Interpretation Comments POC-GLUCOSE METER 122 mg/dL 70-110 H TESTED AT [facility] 6720 ([facility]) (test code = [facility] Humberto [facility] 1538) [id number] U/S, TESTICULAR (SCROTUM)2018-05-21 14:53:00Reason for exam:->testicular swellingFINAL [...] or lymphocele is a consideration. Signed: Reagan Carreport Verified Date/Time: 05/21/2018 14:53:00 Reading Location: [place] [id number] UltrasoundReading Room POCT- GLUCOSE [id number] 11:22:00 Test Item Value Reference Range Interpretation Comments POC-GLUCOSE METER 144 mg/dL 70-110 H TESTED AT [facility] 6720 (BEAKER) (test code = [place] 1538) [address] POCT-GLUCOSE [id number] 07:05:00 Test Item Value Reference Range Interpretation Comments POC-GLUCOSE METER 171 mg/dL 70-110 H TESTED AT [facility] 6720 (BEAKER) (test code = [place] Paul [place] 1538) [address] BASIC METABOLIC [id number] 06:19:00 Test Item Value Reference Range Interpretation Comments SODIUM (BEAKER) 137 meq/L 136-145 (test code = 381) POTASSIUM (BEAKER) 3.3 meq/L 3.5-5.1 L (test code = 379) CHLORIDE (BEAKER) 98 meq/L 98-107 (test code = 382) CO2 (BEAKER) (test 31 meq/L 22-29 H code = 355) BLOOD UREA NITROGEN 22 mg/dL 7-21 H (BEAKER) (test code = 354) CREATININE (BEAKER) 4.82 mg/dL 0.57-1.25 H (test code = 358) GLUCOSE RANDOM 161 mg/dL 70-105 H (BEAKER) (test code = 652) CALCIUM (BEAKER) 8.5 mg/dL 8.4-10.2 (test code = 697) EGFR (BEAKER) (test 15 mL/min/1.73 ESTIMA JAYLA GFR IS code = 1092) sq m NOT ACCURATE CREATININE CLEARANCE IN PREDICTING GLOMERULAR FILTRATION RATE . ESTIMATED GFR I S NOT APPLICABLE FOR DIALYSIS PATIEN TS. [id number] 06:04:00 Test Item Value Reference Range Interpretation Comments MAGNESIUM (BEAKER) (test code = 1.9 mg/dL 1.6-2.6 627) PROTHROMBIN [id number] 05:31:00 Test Item Value Reference Range Interpretation Comments PROTIME (BEAKER) (test code = 29.0 seconds 11.7-14.7 H 759) INR (BEAKER) (test code = 370) 2.7 <=5.9 RECOMMENDED COUMADIN/WARFARIN INR THERAPY RANGESSTANDARD DOSE: 2.0 - 3.0 Includes: PROPHYLAXIS forvenous thrombosis, systemic embolization; TREATMENT for venous thrombosis and/or pulmonary embolus.HIGH RISK: Target INR is 2.5-3.5 for patients with mechanical heart valves.CBC W/PLT COUNT & AUTO DIFFERENTIAL 2018-05-21 05:27:00 Test Item Value Reference Range Interpretation Comments WHITE BLOOD CELL COUNT (BEAKER) 9.5 K/ L 3.5-10.5 (test code = 775) RED BLOOD CELL COUNT (BEAKER) 3.38 M/ L 4.63-6.08 L (test code = 761) HEMOGLOBIN (BEAKER) (test code = 10.0 GM/DL 13.7-17.5 L 410) HEMATOCRIT (BEAKER) (test code = 31.5 % 40.1-51.0 L 411) MEAN CORPUSCULAR VOLUME (BEAKER) 93.2 fL 79.0-92.2 H (test code = 753) MEAN CORPUSCULAR HEMOGLOBIN 29.6 pg 25.7-32.2 (BEAKER) (test code = 751) MEAN CORPUSCULAR HEMOGLOBIN CONC 31.7 GM/DL 32.3-36.5 L (BEAKER) (test code = 752) RED CELL DISTRIBUTION WIDTH 15.7 % 11.6-14.4 H (BEAKER) (test code = 412) PLATELET COUNT (BEAKER) (test 178 K/CU MM 150-450 code = 756) MEAN PLATELET VOLUME (BEAKER) 8.7 fL 9.4-12.4 L (test code = 754) NUCLEATED RED BLOOD CELLS 0 /100 WBC 0-0 (BEAKER) (test code = 413) NEUTROPHILS RELATIVE PERCENT 77 % (BEAKER) (test code = 429) LYMPHOCYTES RELATIVE PERCENT 9 % (BEAKER) (test code = 430) MONOCYTES RELATIVE PERCENT 10 % (BEAKER) (test code = 431) EOSINOPHILS RELATIVE PERCENT 2 % (BEAKER) (test code = 432) BASOPHILS RELATIVE PERCENT 1 % (BEAKER) (test code = 437) NEUTROPHILS ABSOLUTE COUNT 7.36 K/ L 1.78-5.38 H (AKER) (test code = 670) LYMPHOCYTES ABSOLUTE COUNT 0.88 K/ L 1.32-3.57 L (BEAKER) (test code = 414) MONOCYTES ABSOLUTE COUNT (BEAKER) 0.95 K/ L 0.30-0.82 H (test code = 415) EOSINOPHILS ABSOLUTE COUNT 0.16 K/ L 0.04-0.54 (BEAKER) (test code = 416) BASOPHILS ABSOLUTE COUNT (BEAKER) 0.05 K/ L 0.01-0.08 (test code = 417) IMMATURE GRANULOCYTES-RELATIVE 1 % 0-1 PERCENT ([facility]) (test code = 2801) POCT-GLUCOSE [id number] 21:29:00 Test Item Value Reference Range Interpretation Comments POC-GLUCOSE METER 156 mg/dL 70-110 H TESTED AT [place] [address] ([facility]) (test code = [facility] 1538) [id number] POCT-GLUCOSE [id number] 18:14:00 Test Item Value Reference Range Interpretation Comments POC-GLUCOSE METER 93 mg/dL 70-110 TESTED AT [place] [address] ([facility]) (test code = [facility] [address] 1538) PROTHROMBIN [id number] 13:26:00 Test Item Value Reference Range Interpretation Comments PROTIME ([facility]) (test code = 42.0 seconds 11.7-14.7 H 759) INR ([facility]) (test code = 370) 4.4 <=5.9 RECOMMENDED COUMADIN/WARFARIN INR THERAPY RANGESSTANDARD DOSE: 2.0 - 3.0 Includes: PROPHYLAXIS forvenous thrombosis, systemic embolization; TREATMENT for venous thrombosis and/or pulmonary embolus.HIGH RISK: Target INR is 2.5-3.5 for patients with mechanical heart valves.LACTIC ACID, VENOUS, WHOLE [id number] 13:18:00 Test Item Value Reference Range Interpretation Comments LACTATE BLOOD VENOUS (2) ([facility]) 0.8 mmol/L 0.5-2.2 (test code = 2872) Effective 01/04/2016: Units/Reference Range ChangeNew: 0.5-2.2 mmol/L Previous: 5-20 mg/dLPOCT-GLUCOSE [id number] 12:04:00 Test Item Value Reference Range Interpretation Comments POC-GLUCOSE METER 111 mg/dL 70-110 H TESTED AT [facility] 6720 (BEAKER) (test code = [place] 1538) [address] CD4 T CELL [id number] 12:04:00 Test Item Value Reference Range Interpretation Comments CD4/CD8 RATIO FC (BEAKER) (test code = 0.76 0.70-3.23 2126) HEPATITIS B SURFACE [id number] 11:32:00 Test Item Value Reference Range Interpretation Comments HEPATITIS B SURFACE ANTIGEN (2) Nonreactive Nonreactive (BEAKER) (test code = 2585) VANCOMYCIN LEVEL, [id number] 11:10:00 Test Item Value Reference Range Interpretation Comments VANCOMYCIN RANDOM (BEAKER) (test 20.7 ug/mL code = 523) Reference Range: No NormalsBASIC METABOLIC [id number] 09:19:00 Test Item Value Reference Range Interpretation Comments SODIUM (BEAKER) 129 meq/L 136-145 L (test code = 381) POTASSIUM (BEAKER) 3.4 meq/L 3.5-5.1 L (test code = 379) CHLORIDE (BEAKER) 93 meq/L 98-107 L (test code = 382) CO2 (BEAKER) (test 26 meq/L 22-29 code = 355) BLOOD UREA NITROGEN 46 mg/dL 7-21 H (BEAKER) (test code = 354) CREATININE (BEAKER) 7.70 mg/dL 0.57-1.25 H (test code = 358) GLUCOSE RANDOM 129 mg/dL 70-105 H (BEAKER) (test code = 652) CALCIUM (BEAKER) 8.5 mg/dL 8.4-10.2 (test code = 697) EGFR (BEAKER) (test 9 mL/min/1.73 ESTIMAT ED GFR IS code = 1092) sq m NOT ACCURATE CREATININE CLEARANCE IN PREDICTING GLOMERULAR FILTRATION RATE . ESTIMATED GFR I S NOT APPLICABLE FOR DIALYSIS PATIEN TS. [id number] 09:16:00 Test Item Value Reference Range Interpretation Comments MAGNESIUM (BEAKER) (test code = 2.1 mg/dL 1.6-2.6 627) RAD, CHEST, 1 VIEW, NON [id number] 07:56:00Reason for exam:->pleural effusion seen on outside hospital imagingShould this be performed at the bedside?->YesFINAL REPORT Chest one view compared to February 23 Discussion: Small effusions are similar. Replaced cardiac valve and atrial appendage clip noted. No pneumothorax. Unchanged cardiac pulmonary appearance. Signed: Rhea Colindres Verified Date/Time: 05/20/2018 07:56:50 Reading Location: [facility] Radiology Reading Room POCT-GLUCOSE [id number] 07:32:00 Test Item Value Reference Range Interpretation Comments POC-GLUCOSE METER 105 mg/dL 70-110 TESTED AT [facility] 6720 (BEAKER) (test code = FOSTER Paul [facility] 1538) [address] CBC W/PLT COUNT & AUTO [id number] 07:01:00 Test Item Value Reference Range Interpretation Comments WHITE BLOOD CELL COUNT (BEAKER) 9.1 K/ L 3.5-10.5 (test code = 775) RED BLOOD CELL COUNT (BEAKER) 3.34 M/ L 4.63-6.08 L (test code = 761) HEMOGLOBIN (BEAKER) (test code = 9.8 GM/DL 13.7-17.5 L 410) HEMATOCRIT (BEAKER) (test code = 30.9 % 40.1-51.0 L 411) MEAN CORPUSCULAR VOLUME (BEAKER) 92.5 fL 79.0-92.2 H (test code = 753) MEAN CORPUSCULAR HEMOGLOBIN 29.3 pg 25.7-32.2 (BEAKER) (test code = 751) MEAN CORPUSCULAR HEMOGLOBIN CONC 31.7 GM/DL 32.3-36.5 L (BEAKER) (test code = 752) RED CELL DISTRIBUTION WIDTH 15.8 % 11.6-14.4 H (BEAKER) (test code = 412) PLATELET COUNT (BEAKER) (test 173 K/CU MM 150-450 code = 756) MEAN PLATELET VOLUME (BEAKER) 9.2 fL 9.4-12.4 L (test code = 754) NUCLEATED RED BLOOD CELLS 0 /100 WBC 0-0 (BEAKER) (test code = 413) NEUTROPHILS RELATIVE PERCENT 78 % (BEAKER) (test code = 429) LYMPHOCYTES RELATIVE PERCENT 9 % (BEAKER) (test code = 430) MONOCYTES RELATIVE PERCENT 11 % (BEAKER) (test code = 431) EOSINOPHILS RELATIVE PERCENT 1 % (BEAKER) (test code = 432) BASOPHILS RELATIVE PERCENT 0 % (BEAKER) (test code = 437) NEUTROPHILS ABSOLUTE COUNT 7.12 K/ L 1.78-5.38 H (BEAKER) (test code = 670) LYMPHOCYTES ABSOLUTE COUNT 0.84 K/ L 1.32-3.57 L (BEAKER) (test code = 414) MONOCYTES ABSOLUTE COUNT (BEAKER) 0.98 K/ L 0.30-0.82 H (test code = 415) EOSINOPHILS ABSOLUTE COUNT 0.07 K/ L 0.04-0.54 (BEAKER) (test code = 416) BASOPHILS ABSOLUTE COUNT (BEAKER) 0.03 K/ L 0.01-0.08 (test code = 417) IMMATURE GRANULOCYTES-RELATIVE 1 % 0-1 PERCENT (BEAKER) (test code = 2801) VANCOMYCIN LEVEL, [id number] 22:39:00 Test Item Value Reference Range Interpretation Comments VANCOMYCIN RANDOM (BEAKER) (test 22.0 ug/mL code = 523) Reference Range: No NormalsCOMPREHENSIVE METABOLIC [id number] 22:39:00 Test Item Value Reference Range Interpretation Comments TOTAL PROTEIN 7.3 gm/dL 6.0-8.3 (BEAKER) (test code = 770) ALBUMIN (BEAKER) 3.0 g/dL 3.5-5.0 L (test code = 1145) ALKALINE PHOSPHATASE 65 U/L 40-150 (BEAKER) (test code = 346) BILIRUBIN TOTAL 0.9 mg/dL 0.2-1.2 (BEAKER) (test code = 377) SODIUM (BEAKER) (test 130 meq/L 136-145 L code = 381) POTASSIUM (BEAKER) 3.5 meq/L 3.5-5.1 (test code = 379) CHLORIDE (BEAKER) 94 meq/L 98-107 L (test code = 382) CO2 (BEAKER) (test 24 meq/L 22-29 code = 355) BLOOD UREA NITROGEN 44 mg/dL 7-21 H (BEAKER) (test code = 354) CREATININE (BEAKER) 7.35 mg/dL 0.57-1.25 H (test code = 358) GLUCOSE RANDOM 144 mg/dL 70-105 H (BEAKER) (test code = 652) CALCIUM (BEAKER) 8.6 mg/dL 8.4-10.2 (test code = 697) AST (SGOT) (BEAKER) 30 U/L 5-34 (test code = 353) ALT (SGPT) (BEAKER) 21 U/L 6-55 (test code = 347) EGFR (BEAKER) (test 9 mL/min/1.73 ESTIMAT ED GFR IS code = 1092) sq m NOT ACCURATE CREATININE CLEARANCE IN PREDICTING GLOMERULAR FILTRATION RATE . ESTIMATED GFR I S NOT APPLICABLE FOR DIALYSIS PATIEN TS. [id number] 22:38:00 Test Item Value Reference Range Interpretation Comments PHOSPHORUS (BEAKER) (test code = 4.5 mg/dL 2.3-4.7 604) [id number] 22:38:00 Test Item Value Reference Range Interpretation Comments MAGNESIUM (BEAKER) (test code = 2.0 mg/dL 1.6-2.6 627) [id number] 22:29:00 Test Item Value Reference Range Interpretation Comments PARTIAL THROMBOPLASTIN TIME 45.0 seconds 22.5-36.0 H (BEAKER) (test code = 760) PROTHROMBIN [id number] 22:28:00 Test Item Value Reference Range Interpretation Comments PROTIME (BEAKER) (test code = 48.1 seconds 11.7-14.7 H 759) INR (BEAKER) (test code = 370) 5.2 <=5.9 RECOMMENDED COUMADIN/WARFARIN INR THERAPY RANGESSTANDARD DOSE: 2.0 - 3.0 Includes: PROPHYLAXIS forvenous thrombosis, systemic embolization; TREATMENT for venous thrombosis and/or pulmonary embolus.HIGH RISK: Target INR is 2.5-3.5 for patients with mechanical heart valves.POCT-GLUCOSE [id number] 21:38:00 Test Item Value Reference Range Interpretation Comments POC-GLUCOSE METER 105 mg/dL 70-110 TESTED AT [facility] 67 (BEAKER) (test code = [place] 1538) [address] XR Ankle Complete 3+ Views [id number] 22:30:07Patient: CALEB LUGO Date/Time05/12/2018 22:24 CDTReason for [...] Signature): 05/12/2018 10:30 pmXR Chest 1 View [id number] 09:48:17Patient: CALEB LUGO Date/Time05/12/2018 09:30 CDTReason for [...] FSigned (Electronic Signature): 05/12/2018 9:48 amBASIC METABOLIC [id number] 11:15:00 Test Item Value Reference Range Interpretation Comments SODIUM (BEAKER) 139 meq/L 136-145 (test code = 381) POTASSIUM (BEAKER) 3.5 meq/L 3.5-5.1 (test code = 379) CHLORIDE (BEAKER) 96 meq/L 98-107 L (test code = 382) CO2 (BEAKER) (test 29 meq/L 22-29 code = 355) BLOOD UREA NITROGEN 31 mg/dL 7-21 H (BEAKER) (test code = 354) CREATININE (BEAKER) 6.31 mg/dL 0.57-1.25 H (test code = 358) GLUCOSE RANDOM 147 mg/dL 70-105 H (BEAKER) (test code = 652) CALCIUM (BEAKER) 9.7 mg/dL 8.4-10.2 (test code = 697) EGFR (BEAKER) (test 11 mL/min/1.73 ESTIMA JAYLA GFR IS code = 1092) sq m NOT ACCURATE CREATININE CLEARANCE IN PREDICTING GLOMERULAR FILTRATION RATE . ESTIMATED GFR I S NOT APPLICABLE FOR DIALYSIS PATIEN TS. B-TYPE NATRIURETIC FACTOR (BNP)2018-03-19 11:13:00 Test Item Value Reference Range Interpretation Comments B-TYPE NATRIURETIC PEPTIDE 3030 pg/mL 0-100 H (BEAKER) (test code = 700) BASIC METABOLIC [id number] 02:55:00 Test Item Value Reference Range Interpretation Comments SODIUM (BEAKER) 139 meq/L 136-145 (test code = 381) POTASSIUM (BEAKER) 4.1 meq/L 3.5-5.1 (test code = 379) CHLORIDE (BEAKER) 97 meq/L 98-107 L (test code = 382) CO2 (BEAKER) (test 32 meq/L 22-29 H code = 355) BLOOD UREA NITROGEN 34 mg/dL 7-21 H (BEAKER) (test code = 354) CREATININE (BEAKER) 5.68 mg/dL 0.57-1.25 H (test code = 358) GLUCOSE RANDOM 109 mg/dL 70-105 H (BEAKER) (test code = 652) CALCIUM (BEAKER) 9.3 mg/dL 8.4-10.2 (test code = 697) EGFR (BEAKER) (test 12 mL/min/1.73 ESTIMA JAYLA GFR IS code = 1092) sq m NOT ACCURATE CREATININE CLEARANCE IN PREDICTING GLOMERULAR FILTRATION RATE . ESTIMATED GFR I S NOT APPLICABLE FOR DIALYSIS PATIEN TS. B-TYPE NATRIURETIC FACTOR (BNP)2018-02-24 02:31:00 Test Item Value Reference Range Interpretation Comments B-TYPE NATRIURETIC PEPTIDE 3676 pg/mL 0-100 H (BEAKER) (test code = 700) TROPONIN [id number] 02:30:00 Test Item Value Reference Range Interpretation Comments TROPONIN I (BEAKER) (test code = 0.14 ng/mL 0.00-0.03 H 397) Troponin I (TnI) levels must be interpreted [...] failure, acidosis, acute neurological disease, and persistent tachyarrhythmia.[id number] 02:21:00 Test Item Value Reference Range Interpretation Comments MAGNESIUM (BEAKER) (test code = 1.8 mg/dL 1.6-2.6 627) CBC W/PLT COUNT & AUTO [id number] 00:24:00 Test Item Value Reference Range Interpretation Comments WHITE BLOOD CELL COUNT (BEAKER) 7.8 K/ L 3.5-10.5 (test code = 775) RED BLOOD CELL COUNT (BEAKER) 3.03 M/ L 4.63-6.08 L (test code = 761) HEMOGLOBIN (BEAKER) (test code = 9.2 GM/DL 13.7-17.5 L 410) HEMATOCRIT (BEAKER) (test code = 30.1 % 40.1-51.0 L 411) MEAN CORPUSCULAR VOLUME (BEAKER) 99.3 fL 79.0-92.2 H (test code = 753) MEAN CORPUSCULAR HEMOGLOBIN 30.4 pg 25.7-32.2 (BEAKER) (test code = 751) MEAN CORPUSCULAR HEMOGLOBIN CONC 30.6 GM/DL 32.3-36.5 L (BEAKER) (test code = 752) RED CELL DISTRIBUTION WIDTH 18.5 % 11.6-14.4 H (BEAKER) (test code = 412) PLATELET COUNT (BEAKER) (test code 83 K/CU MM 150-450 L = 756) MEAN PLATELET VOLUME (BEAKER) 10.2 fL 9.4-12.4 (test code = 754) NUCLEATED RED BLOOD CELLS (BEAKER) 0 /100 WBC 0-0 (test code = 413) NEUTROPHILS RELATIVE PERCENT 63 % (BEAKER) (test code = 429) LYMPHOCYTES RELATIVE PERCENT 21 % (BEAKER) (test code = 430) MONOCYTES RELATIVE PERCENT 13 % (BEAKER) (test code = 431) EOSINOPHILS RELATIVE PERCENT 1 % (BEAKER) (test code = 432) BASOPHILS RELATIVE PERCENT 1 % (BEAKER) (test code = 437) NEUTROPHILS ABSOLUTE COUNT 4.95 K/ L 1.78-5.38 (BEAKER) (test code = 670) LYMPHOCYTES ABSOLUTE COUNT 1.61 K/ L 1.32-3.57 (BEAKER) (test code = 414) MONOCYTES ABSOLUTE COUNT (BEAKER) 1.04 K/ L 0.30-0.82 H (test code = 415) EOSINOPHILS ABSOLUTE COUNT 0.10 K/ L 0.04-0.54 (BEAKER) (test code = 416) BASOPHILS ABSOLUTE COUNT (BEAKER) 0.06 K/ L 0.01-0.08 (test code = 417) IMMATURE GRANULOCYTES-RELATIVE 1 % 0-1 PERCENT (BEAKER) (test code = 2801) [id number] 00:01:00 Test Item Value Reference Range Interpretation Comments PROTIME (BEAKER) (test code = 14.4 seconds 11.7-14.7 759) INR (BEAKER) (test code = 370) 1.1 <=5.9 PARTIAL THROMBOPLASTIN TIME 28.5 seconds 22.5-36.0 (BEAKER) (test code = 760) RECOMMENDED COUMADIN/WARFARIN INR THERAPY RANGESSTANDARD DOSE: 2.0 - 3.0 Includes: PROPHYLAXIS forvenous thrombosis, systemic embolization; TREATMENT for venous thrombosis and/or pulmonary embolus.HIGH RISK: Target INR is 2.5-3.5 for patients with mechanical heart valves.RAD, CHEST, 1 VIEW, NON [id number] 23:39:00Reason for exam:->chest painShould this be performed [...] worrisome for fluid overload-heart failure. Signed: Josiah Waneport Verified Date/Time: 02/23/2018 23:39:58 Reading Location: [address] Reading Room POCT-GLUCOSE [id number] 19:47:00 Test Item Value Reference Range Interpretation Comments POC-GLUCOSE METER 94 mg/dL 70-110 TESTED AT [place] [address] ([facility]) [facility] [address] 1538) POCT-GLUCOSE [id number] 17:07:00 Test Item Value Reference Range Interpretation Comments POC-GLUCOSE METER 176 mg/dL 70-110 H TESTED AT [place] [address] ([facility]) (test code = [facility] 1538) [id number] POCT-GLUCOSE [id number] 12:31:00 Test Item Value Reference Range Interpretation Comments POC-GLUCOSE METER 84 mg/dL 70-110 TESTED AT [place] [address] ([facility]) (test code = [facility] Humberto [facility] [address] 1538) [id number] 10:40:00 Test Item Value Reference Range Interpretation Comments PARTIAL THROMBOPLASTIN TIME 88.5 seconds 22.5-36.0 H ([facility]) (test code = 760) OCCULT BLOOD, [id number] 09:36:00 Test Item Value Reference Range Interpretation Comments FECAL OCCULT BLOOD ([facility]) (test Negative Negative code = 618) POCT-GLUCOSE [id number] 08:51:00 Test Item Value Reference Range Interpretation Comments POC-GLUCOSE METER 223 mg/dL 70-110 H TESTED AT [place] [address] ([facility]) (test code = [facility] Humberto [facility] 1538) [id number] 04:14:00 Test Item Value Reference Range Interpretation Comments PARTIAL THROMBOPLASTIN TIME 80.3 seconds 22.5-36.0 H ([facility]) (test code = 760) While on warfarin.PROTHROMBIN [id number] 04:13:00 Test Item Value Reference Range Interpretation Comments PROTIME ([facility]) (test code = 23.8 seconds 11.7-14.7 H 759) INR ([facility]) (test code = 370) 2.1 <=5.9 RECOMMENDED COUMADIN/WARFARIN INR THERAPY RANGESSTANDARD DOSE: 2.0 - 3.0 Includes: PROPHYLAXIS forvenous thrombosis, systemic embolization; TREATMENT for venous thrombosis and/or pulmonary embolus.HIGH RISK: Target INR is 2.5-3.5 for patients with mechanical heart valves.While on warfarin.POCT-GLUCOSE METER 2018-02-02 21:56:00 Test Item Value Reference Range Interpretation Comments POC-GLUCOSE METER 206 mg/dL 70-110 H TESTED AT [place] [address] ([facility]) (test code = FOSTER Paul [facility] 1538) [id number] 19:50:00 Test Item Value Reference Range Interpretation Comments PARTIAL THROMBOPLASTIN TIME 59.7 seconds 22.5-36.0 H ([facility]) (test code = 760) POCT-GLUCOSE [id number] 17:00:00 Test Item Value Reference Range Interpretation Comments POC-GLUCOSE METER 183 mg/dL 70-110 H TESTED AT [place] [address] ([facility]) (test code = FOSTER Paul [facility] 1538) [id number] 12:45:00 Test Item Value Reference Range Interpretation Comments PARTIAL THROMBOPLASTIN TIME 89.5 seconds 22.5-36.0 H ([facility]) (test code = 760) CBC W/PLT COUNT & AUTO [id number] 12:04:00 Test Item Value Reference Range Interpretation Comments WHITE BLOOD CELL COUNT (BEAKER) 4.8 K/ L 3.5-10.5 (test code = 775) RED BLOOD CELL COUNT (AKER) 2.46 M/ L 4.63-6.08 L (test code = 761) HEMOGLOBIN (BEAKER) (test code = 7.5 GM/DL 13.7-17.5 L 410) HEMATOCRIT (BEAKER) (test code = 24.2 % 40.1-51.0 L 411) MEAN CORPUSCULAR VOLUME (AKER) 98.4 fL 79.0-92.2 H (test code = 753) MEAN CORPUSCULAR HEMOGLOBIN 30.5 pg 25.7-32.2 (BEAKER) (test code = 751) MEAN CORPUSCULAR HEMOGLOBIN CONC 31.0 GM/DL 32.3-36.5 L (BEAKER) (test code = 752) RED CELL DISTRIBUTION WIDTH 18.0 % 11.6-14.4 H (BEAKER) (test code = 412) PLATELET COUNT (BEAKER) (test code 90 K/CU MM 150-450 L = 756) MEAN PLATELET VOLUME (BEAKER) 9.3 fL 9.4-12.4 L (test code = 754) NUCLEATED RED BLOOD CELLS (BEAKER) 0 /100 WBC 0-0 (test code = 413) POCT-GLUCOSE [id number] 11:54:00 Test Item Value Reference Range Interpretation Comments POC-GLUCOSE METER 124 mg/dL 70-110 H TESTED AT [facility] 67 ([facility]) (test code = FOSTER Paul [facility] 1538) [id number] POCT-GLUCOSE [id number] 07:48:00 Test Item Value Reference Range Interpretation Comments POC-GLUCOSE METER 178 mg/dL 70-110 H TESTED AT [place] [address] ([facility]) (test code = [facility] 1538) [id number] BASIC METABOLIC [id number] 05:15:00 Test Item Value Reference Range Interpretation Comments SODIUM (BEAKER) 133 meq/L 136-145 L (test code = 381) POTASSIUM (BEAKER) 4.8 meq/L 3.5-5.1 (test code = 379) CHLORIDE (BEAKER) 97 meq/L 98-107 L (test code = 382) CO2 (BEAKER) (test 27 meq/L 22-29 code = 355) BLOOD UREA NITROGEN 26 mg/dL 7-21 H (BEAKER) (test code = 354) CREATININE (BEAKER) 5.28 mg/dL 0.57-1.25 H (test code = 358) GLUCOSE RANDOM 131 mg/dL 70-105 H (BEAKER) (test code = 652) CALCIUM (BEAKER) 8.5 mg/dL 8.4-10.2 (test code = 697) EGFR (BEAKER) (test 14 mL/min/1.73 ESTIMA JAYLA GFR IS code = 1092) sq m NOT ACCURATE CREATININE CLEARANCE IN PREDICTING GLOMERULAR FILTRATION RATE . ESTIMATED GFR I S NOT APPLICABLE FOR DIALYSIS PATIEN TS. [id number] 04:51:00 Test Item Value Reference Range Interpretation Comments MAGNESIUM (BEAKER) (test code = 1.8 mg/dL 1.6-2.6 627) [id number] 04:36:00 Test Item Value Reference Range Interpretation Comments PARTIAL THROMBOPLASTIN TIME 91.9 seconds 22.5-36.0 H (BEAKER) (test code = 760) While on warfarin.PROTHROMBIN TIME/[id number] 04:34:00 Test Item Value Reference Range Interpretation Comments PROTIME (BEAKER) (test code = 21.6 seconds 11.7-14.7 H 759) INR (BEAKER) (test code = 370) 1.9 <=5.9 RECOMMENDED COUMADIN/WARFARIN INR THERAPY RANGESSTANDARD DOSE: 2.0 - 3.0 Includes: PROPHYLAXIS forvenous thrombosis, systemic embolization; TREATMENT for venous thrombosis and/or pulmonary embolus.HIGH RISK: Target INR is 2.5-3.5 for patients with mechanical heart valves.While on warfarin.POCT-GLUCOSE METER 2018-02-01 21:46:00 Test Item Value Reference Range Interpretation Comments POC-GLUCOSE METER 126 mg/dL 70-110 H TESTED AT [place] [address] ([facility]) (test code = [place] 15[address]) [address] [id number] 21:23:00 Test Item Value Reference Range Interpretation Comments PARTIAL THROMBOPLASTIN TIME 84.1 seconds 22.5-36.0 H ([facility]) (test code = 760) POCT-GLUCOSE [id number] 16:57:00 Test Item Value Reference Range Interpretation Comments POC-GLUCOSE METER 156 mg/dL 70-110 H TESTED AT [place] [address] ([facility]) (test code = [place] 1538) [id number] 14:11:00 Test Item Value Reference Range Interpretation Comments PARTIAL THROMBOPLASTIN TIME 96.5 seconds 22.5-36.0 H ([facility]) (test code = 760) POCT-GLUCOSE [id number] 08:24:00 Test Item Value Reference Range Interpretation Comments POC-GLUCOSE METER 169 mg/dL 70-110 H TESTED AT [place] [address] ([facility]) (test code = [place] 1538) [address] POCT-GLUCOSE [id number] 06:49:00 Test Item Value Reference Range Interpretation Comments POC-GLUCOSE METER 172 mg/dL 70-110 H TESTED AT [place] [address] ([facility]) (test code = [place] 1538) [address] [id number] 04:59:00 Test Item Value Reference Range Interpretation Comments PARTIAL THROMBOPLASTIN TIME 64.7 seconds 22.5-36.0 H ([facility]) (test code = 760) While on warfarin.PROTHROMBIN TIME/[id number] 04:57:00 Test Item Value Reference Range Interpretation Comments PROTIME ([facility]) (test code = 17.5 seconds 11.7-14.7 H 759) INR ([facility]) (test code = 370) 1.4 <=5.9 RECOMMENDED COUMADIN/WARFARIN INR THERAPY RANGESSTANDARD DOSE: 2.0 - 3.0 Includes: PROPHYLAXIS forvenous thrombosis, systemic embolization; TREATMENT for venous thrombosis and/or pulmonary embolus.HIGH RISK: Target INR is 2.5-3.5 for patients with mechanical heart valves.While on warfarin.[id number] 21:55:00 Test Item Value Reference Range Interpretation Comments PARTIAL THROMBOPLASTIN TIME 68.8 seconds 22.5-36.0 H ([facility]) (test code = 760) [id number] 13:54:00 Test Item Value Reference Range Interpretation Comments PARTIAL THROMBOPLASTIN TIME 51.7 seconds 22.5-36.0 H ([facility]) (test code = 760) POCT-GLUCOSE [id number] 11:56:00 Test Item Value Reference Range Interpretation Comments POC-GLUCOSE METER 101 mg/dL 70-110 TESTED AT [place] [address] ([facility]) (test code = [place] 1538) [id number] POCT-GLUCOSE [id number] 07:58:00 Test Item Value Reference Range Interpretation Comments POC-GLUCOSE METER 111 mg/dL 70-110 H TESTED AT [place] [address] ([facility]) (test code = [place] 1538) [address] BASIC METABOLIC [id number] 05:35:00 Test Item Value Reference Range Interpretation Comments SODIUM (BEAKER) 132 meq/L 136-145 L (test code = 381) POTASSIUM (BEAKER) 3.9 meq/L 3.5-5.1 (test code = 379) CHLORIDE (BEAKER) 95 meq/L 98-107 L (test code = 382) CO2 (BEAKER) (test 26 meq/L 22-29 code = 355) BLOOD UREA NITROGEN 29 mg/dL 7-21 H (BEAKER) (test code = 354) CREATININE (BEAKER) 5.57 mg/dL 0.57-1.25 H (test code = 358) GLUCOSE RANDOM 148 mg/dL 70-105 H (BEAKER) (test code = 652) CALCIUM (BEAKER) 8.2 mg/dL 8.4-10.2 L (test code = 697) EGFR (BEAKER) (test 13 mL/min/1.73 ESTIMA JAYLA GFR IS code = 1092) sq m NOT ACCURATE CREATININE CLEARANCE IN PREDICTING GLOMERULAR FILTRATION RATE . ESTIMATED GFR I S NOT APPLICABLE FOR DIALYSIS PATIEN TS. [id number] 05:34:00 Test Item Value Reference Range Interpretation Comments PHOSPHORUS (BEAKER) (test code = 4.2 mg/dL 2.3-4.7 604) [id number] 05:34:00 Test Item Value Reference Range Interpretation Comments MAGNESIUM (BEAKER) (test code = 1.7 mg/dL 1.6-2.6 627) PROTHROMBIN [id number] 05:24:00 Test Item Value Reference Range Interpretation Comments PROTIME (BEAKER) (test code = 18.8 seconds 11.7-14.7 H 759) INR (BEAKER) (test code = 370) 1.6 <=5.9 RECOMMENDED COUMADIN/WARFARIN INR THERAPY RANGESSTANDARD DOSE: 2.0 - 3.0 Includes: PROPHYLAXIS forvenous thrombosis, systemic embolization; TREATMENT for venous thrombosis and/or pulmonary embolus.HIGH RISK: Target INR is 2.5-3.5 for patients with mechanical heart valves.[id number] 05:05:00 Test Item Value Reference Range Interpretation Comments PARTIAL THROMBOPLASTIN TIME 96.6 seconds 22.5-36.0 H (BEAKER) (test code = 760) CBC W/PLT COUNT & AUTO [id number] 04:54:00 Test Item Value Reference Range Interpretation Comments WHITE BLOOD CELL COUNT (BEAKER) 5.5 K/ L 3.5-10.5 (test code = 775) RED BLOOD CELL COUNT (BEAKER) 2.40 M/ L 4.63-6.08 L (test code = 761) HEMOGLOBIN (BEAKER) (test code = 7.3 GM/DL 13.7-17.5 L 410) HEMATOCRIT (BEAKER) (test code = 23.3 % 40.1-51.0 L 411) MEAN CORPUSCULAR VOLUME (BEAKER) 97.1 fL 79.0-92.2 H (test code = 753) MEAN CORPUSCULAR HEMOGLOBIN 30.4 pg 25.7-32.2 (BEAKER) (test code = 751) MEAN CORPUSCULAR HEMOGLOBIN CONC 31.3 GM/DL 32.3-36.5 L (BEAKER) (test code = 752) RED CELL DISTRIBUTION WIDTH 18.9 % 11.6-14.4 H (BEAKER) (test code = 412) PLATELET COUNT (BEAKER) (test code 87 K/CU MM 150-450 L = 756) MEAN PLATELET VOLUME (BEAKER) 9.5 fL 9.4-12.4 (test code = 754) NUCLEATED RED BLOOD CELLS (BEAKER) 0 /100 WBC 0-0 (test code = 413) NEUTROPHILS RELATIVE PERCENT 69 % (BEAKER) (test code = 429) LYMPHOCYTES RELATIVE PERCENT 18 % (BEAKER) (test code = 430) MONOCYTES RELATIVE PERCENT 11 % (BEAKER) (test code = 431) EOSINOPHILS RELATIVE PERCENT 1 % (BEAKER) (test code = 432) BASOPHILS RELATIVE PERCENT 0 % (BEAKER) (test code = 437) NEUTROPHILS ABSOLUTE COUNT 3.77 K/ L 1.78-5.38 (BEAKER) (test code = 670) LYMPHOCYTES ABSOLUTE COUNT 0.97 K/ L 1.32-3.57 L (BEAKER) (test code = 414) MONOCYTES ABSOLUTE COUNT (BEAKER) 0.62 K/ L 0.30-0.82 (test code = 415) EOSINOPHILS ABSOLUTE COUNT 0.07 K/ L 0.04-0.54 (BEAKER) (test code = 416) BASOPHILS ABSOLUTE COUNT (BEAKER) 0.02 K/ L 0.01-0.08 (test code = 417) IMMATURE GRANULOCYTES-RELATIVE 1 % 0-1 PERCENT ([facility]) (test code = 2801) OCCULT BLOOD, [id number] 22:44:00 Test Item Value Reference Range Interpretation Comments FECAL OCCULT BLOOD ([facility]) (test Positive Negative A code = 618) [id number] 21:14:00 Test Item Value Reference Range Interpretation Comments PARTIAL THROMBOPLASTIN TIME 69.1 seconds 22.5-36.0 H ([facility]) (test code = 760) POCT-GLUCOSE [id number] 20:49:00 Test Item Value Reference Range Interpretation Comments POC-GLUCOSE METER 160 mg/dL 70-110 H TESTED AT [place] [address] ([facility]) (test code = [place] [facility] 1538) [address] POCT-GLUCOSE [id number] 17:59:00 Test Item Value Reference Range Interpretation Comments POC-GLUCOSE METER 128 mg/dL 70-110 H TESTED AT [place] [address] ([facility]) (test code = [place] [facility] 1538) [address] POCT-GLUCOSE [id number] 13:31:00 Test Item Value Reference Range Interpretation Comments POC-GLUCOSE METER 70 mg/dL 70-110 TESTED AT [place] [address] ([facility]) (test code = [place] [facility] [id number]) [id number] 13:16:00 Test Item Value Reference Range Interpretation Comments PARTIAL THROMBOPLASTIN TIME 78.3 seconds 22.5-36.0 H ([facility]) (test code = 760) POCT-GLUCOSE [id number] 12:47:00 Test Item Value Reference Range Interpretation Comments POC-GLUCOSE METER 49 mg/dL 70-110 L TESTED AT [place] [address] ([facility]) (test code = [place] [facility] [id number]) POCT-GLUCOSE [id number] 09:05:00 Test Item Value Reference Range Interpretation Comments POC-GLUCOSE METER 306 mg/dL 70-110 H TESTED AT [place] [id number] ([facility]) (test code = [place] 1538) [address] OCCULT BLOOD, [id number] 06:52:00 Test Item Value Reference Range Interpretation Comments FECAL OCCULT BLOOD (BEAKER) (test Positive Negative A code = 618) [id number] 05:42:00 Test Item Value Reference Range Interpretation Comments PARTIAL THROMBOPLASTIN TIME 70.5 seconds 22.5-36.0 H (BEAKER) (test code = 760) IRON, TIBC, % SAT. (WITHOUT FERRITIN)[id number] 05:42:00 Test Item Value Reference Range Interpretation Comments IRON (BEAKER) (test code = 547) 58 ug/dL 40-160 TOTAL IRON BINDING CAPACITY 195 ug/dL 250-450 L (BEAKER) (test code = 769) IRON % SATURATION (2) (BEAKER) 30 % 20-55 (test code = 2590) BASIC METABOLIC [id number] 03:53:00 Test Item Value Reference Range Interpretation Comments SODIUM (BEAKER) 134 meq/L 136-145 L (test code = 381) POTASSIUM (BEAKER) 4.1 meq/L 3.5-5.1 (test code = 379) CHLORIDE (BEAKER) 98 meq/L 98-107 (test code = 382) CO2 (BEAKER) (test 27 meq/L 22-29 code = 355) BLOOD UREA NITROGEN 16 mg/dL 7-21 (BEAKER) (test code = 354) CREATININE (BEAKER) 3.58 mg/dL 0.57-1.25 H (test code = 358) GLUCOSE RANDOM 103 mg/dL 70-105 (BEAKER) (test code = 652) CALCIUM (BEAKER) 8.3 mg/dL 8.4-10.2 L (test code = 697) EGFR (BEAKER) (test 21 mL/min/1.73 ESTIMA JAYLA GFR IS code = 1092) sq m NOT ACCURATE CREATININE CLEARANCE IN PREDICTING GLOMERULAR FILTRATION RATE . ESTIMATED GFR I S NOT APPLICABLE FOR DIALYSIS PATIEN TS. [id number] 03:51:00 Test Item Value Reference Range Interpretation Comments PHOSPHORUS (BEAKER) (test code = 3.2 mg/dL 2.3-4.7 604) [id number] 03:51:00 Test Item Value Reference Range Interpretation Comments PARTIAL THROMBOPLASTIN TIME 122.0 seconds 22.5-36.0 H (BEAKER) (test code = 760) While on warfarin.PROTHROMBIN [id number] 03:48:00 Test Item Value Reference Range Interpretation Comments PROTIME (BEAKER) (test code = 16.3 seconds 11.7-14.7 H 759) INR (BEAKER) (test code = 370) 1.3 <=5.9 RECOMMENDED COUMADIN/WARFARIN INR THERAPY RANGESSTANDARD DOSE: 2.0 - 3.0 Includes: PROPHYLAXIS forvenous thrombosis, systemic embolization; TREATMENT for venous thrombosis and/or pulmonary embolus.HIGH RISK: Target INR is 2.5-3.5 for patients with mechanical heart valves.While on warfarin.[id number] 03:44:00 Test Item Value Reference Range Interpretation Comments MAGNESIUM (BEAKER) (test code = 1.7 mg/dL 1.6-2.6 627) CBC W/PLT COUNT & AUTO [id number] 03:38:00 Test Item Value Reference Range Interpretation Comments WHITE BLOOD CELL COUNT (BEAKER) 6.7 K/ L 3.5-10.5 (test code = 775) RED BLOOD CELL COUNT (BEAKER) 2.37 M/ L 4.63-6.08 L (test code = 761) HEMOGLOBIN (BEAKER) (test code = 7.4 GM/DL 13.7-17.5 L 410) HEMATOCRIT (BEAKER) (test code = 23.0 % 40.1-51.0 L 411) MEAN CORPUSCULAR VOLUME (BEAKER) 97.0 fL 79.0-92.2 H (test code = 753) MEAN CORPUSCULAR HEMOGLOBIN 31.2 pg 25.7-32.2 (BEAKER) (test code = 751) MEAN CORPUSCULAR HEMOGLOBIN CONC 32.2 GM/DL 32.3-36.5 L (BEAKER) (test code = 752) RED CELL DISTRIBUTION WIDTH 19.9 % 11.6-14.4 H (BEAKER) (test code = 412) PLATELET COUNT (BEAKER) (test code 80 K/CU MM 150-450 L = 756) MEAN PLATELET VOLUME (BEAKER) 9.3 fL 9.4-12.4 L (test code = 754) NUCLEATED RED BLOOD CELLS (BEAKER) 0 /100 WBC 0-0 (test code = 413) NEUTROPHILS RELATIVE PERCENT 81 % (BEAKER) (test code = 429) LYMPHOCYTES RELATIVE PERCENT 10 % (BEAKER) (test code = 430) MONOCYTES RELATIVE PERCENT 8 % (BEAKER) (test code = 431) EOSINOPHILS RELATIVE PERCENT 0 % (BEAKER) (test code = 432) BASOPHILS RELATIVE PERCENT 0 % (BEAKER) (test code = 437) NEUTROPHILS ABSOLUTE COUNT 5.39 K/ L 1.78-5.38 H (BEAKER) (test code = 670) LYMPHOCYTES ABSOLUTE COUNT 0.64 K/ L 1.32-3.57 L (BEAKER) (test code = 414) MONOCYTES ABSOLUTE COUNT (BEAKER) 0.55 K/ L 0.30-0.82 (test code = 415) EOSINOPHILS ABSOLUTE COUNT 0.02 K/ L 0.04-0.54 L (BEAKER) (test code = 416) BASOPHILS ABSOLUTE COUNT (BEAKER) 0.02 K/ L 0.01-0.08 (test code = 417) IMMATURE GRANULOCYTES-RELATIVE 1 % 0-1 PERCENT (BEAKER) (test code = 2801) POCT-GLUCOSE [id number] 23:35:00 Test Item Value Reference Range Interpretation Comments POC-GLUCOSE METER 149 mg/dL 70-110 H TESTED AT [facility] 67 ([facility]) (test code = [facility] 1538) [address] [id number] 20:08:00 Test Item Value Reference Range Interpretation Comments PARTIAL THROMBOPLASTIN TIME 55.6 seconds 22.5-36.0 H (BEAKER) (test code = 760) [id number] 15:10:00 Test Item Value Reference Range Interpretation Comments PARTIAL THROMBOPLASTIN TIME 81.4 seconds 22.5-36.0 H ([facility]) (test code = 760) POCT-GLUCOSE [id number] 11:58:00 Test Item Value Reference Range Interpretation Comments POC-GLUCOSE METER 124 mg/dL 70-110 H TESTED AT [facility] 67[address] ([facility]) (test code = [facility] 1538) [address] RAD, CHEST, 1 VIEW, NON [id number] 08:59:00Reason for exam:->s/p mvrShould this be performed at the bedside?->YesFINAL REPORT Chest one view compared to January 24 Discussion: Left IJ line, atrial appendage clip, cardiac valve replacement noted. Mild interstitial congestion. No gross effusion or pneumothorax. IMPRESSIONS: No significant change Signed: Rhea Colindreseport Verified Date/Time:01/29/2018 08:59:39 [facility] POCT-GLUCOSE [id number] 07:41:00 Test Item Value Reference Range Interpretation Comments POC-GLUCOSE METER 113 mg/dL 70-110 H TESTED AT [facility] 6720 (BEAKER) (test code = [place] 1538) [address] [id number] 07:23:00 Test Item Value Reference Range Interpretation Comments PARTIAL THROMBOPLASTIN TIME 89.8 seconds 22.5-36.0 H (BEAKER) (test code = 760) BASIC METABOLIC [id number] 06:05:00 Test Item Value Reference Range Interpretation Comments SODIUM (BEAKER) 134 meq/L 136-145 L (test code = 381) POTASSIUM (BEAKER) 3.9 meq/L 3.5-5.1 (test code = 379) CHLORIDE (BEAKER) 96 meq/L 98-107 L (test code = 382) CO2 (BEAKER) (test 28 meq/L 22-29 code = 355) BLOOD UREA NITROGEN 33 mg/dL 7-21 H (BEAKER) (test code = 354) CREATININE (BEAKER) 6.43 mg/dL 0.57-1.25 H (test code = 358) GLUCOSE RANDOM 85 mg/dL 70-105 (BEAKER) (test code = 652) CALCIUM (BEAKER) 8.4 mg/dL 8.4-10.2 (test code = 697) EGFR (BEAKER) (test 11 mL/min/1.73 ESTIMA JAYLA GFR IS code = 1092) sq m NOT ACCURATE CREATININE CLEARANCE IN PREDICTING GLOMERULAR FILTRATION RATE . ESTIMATED GFR I S NOT APPLICABLE FOR DIALYSIS PATIEN TS. PROTHROMBIN [id number] 05:59:00 Test Item Value Reference Range Interpretation Comments PROTIME (BEAKER) (test code = 17.0 seconds 11.7-14.7 H 759) INR (BEAKER) (test code = 370) 1.4 <=5.9 RECOMMENDED COUMADIN/WARFARIN INR THERAPY RANGESSTANDARD DOSE: 2.0 - 3.0 Includes: PROPHYLAXIS forvenous thrombosis, systemic embolization; TREATMENT for venous thrombosis and/or pulmonary embolus.HIGH RISK: Target INR is 2.5-3.5 for patients with mechanical heart valves.While on warfarin.[id number] 05:56:00 Test Item Value Reference Range Interpretation Comments PHOSPHORUS (BEAKER) (test code = 5.3 mg/dL 2.3-4.7 H 604) [id number] 05:56:00 Test Item Value Reference Range Interpretation Comments MAGNESIUM (BEAKER) (test code = 1.9 mg/dL 1.6-2.6 627) CBC W/PLT COUNT & AUTO [id number] 05:38:00 Test Item Value Reference Range Interpretation Comments WHITE BLOOD CELL COUNT (BEAKER) 6.7 K/ L 3.5-10.5 (test code = 775) RED BLOOD CELL COUNT (BEAKER) 2.40 M/ L 4.63-6.08 L (test code = 761) HEMOGLOBIN (BEAKER) (test code = 7.4 GM/DL 13.7-17.5 L 410) HEMATOCRIT (BEAKER) (test code = 23.6 % 40.1-51.0 L 411) MEAN CORPUSCULAR VOLUME (BEAKER) 98.3 fL 79.0-92.2 H (test code = 753) MEAN CORPUSCULAR HEMOGLOBIN 30.8 pg 25.7-32.2 (BEAKER) (test code = 751) MEAN CORPUSCULAR HEMOGLOBIN CONC 31.4 GM/DL 32.3-36.5 L (BEAKER) (test code = 752) RED CELL DISTRIBUTION WIDTH 20.1 % 11.6-14.4 H (BEAKER) (test code = 412) PLATELET COUNT (BEAKER) (test 106 K/CU MM 150-450 L code = 756) MEAN PLATELET VOLUME (BEAKER) 9.9 fL 9.4-12.4 (test code = 754) NUCLEATED RED BLOOD CELLS 0 /100 WBC 0-0 (BEAKER) (test code = 413) NEUTROPHILS RELATIVE PERCENT 77 % (BEAKER) (test code = 429) LYMPHOCYTES RELATIVE PERCENT 14 % (BEAKER) (test code = 430) MONOCYTES RELATIVE PERCENT 7 % (BEAKER) (test code = 431) EOSINOPHILS RELATIVE PERCENT 1 % (BEAKER) (test code = 432) BASOPHILS RELATIVE PERCENT 0 % (BEAKER) (test code = 437) NEUTROPHILS ABSOLUTE COUNT 5.17 K/ L 1.78-5.38 (BEAKER) (test code = 670) LYMPHOCYTES ABSOLUTE COUNT 0.91 K/ L 1.32-3.57 L (BEAKER) (test code = 414) MONOCYTES ABSOLUTE COUNT (BEAKER) 0.50 K/ L 0.30-0.82 (test code = 415) EOSINOPHILS ABSOLUTE COUNT 0.06 K/ L 0.04-0.54 (BEAKER) (test code = 416) BASOPHILS ABSOLUTE COUNT (BEAKER) 0.01 K/ L 0.01-0.08 (test code = 417) IMMATURE GRANULOCYTES-RELATIVE 1 % 0-1 PERCENT (BEAKER) (test code = 2801) [id number] 01:07:00 Test Item Value Reference Range Interpretation Comments PARTIAL THROMBOPLASTIN TIME 63.5 seconds 22.5-36.0 H (BEAKER) (test code = 760) [id number] 18:24:00 Test Item Value Reference Range Interpretation Comments PARTIAL THROMBOPLASTIN TIME 56.6 seconds 22.5-36.0 H (BEAKER) (test code = 760) POCT-GLUCOSE [id number] 18:14:00 Test Item Value Reference Range Interpretation Comments POC-GLUCOSE METER 101 mg/dL 70-110 TESTED AT [place] [address] (BEAKER) [facility] 1538) [address] [id number] 13:57:00 Test Item Value Reference Range Interpretation Comments PARTIAL THROMBOPLASTIN TIME 122.3 seconds 22.5-36.0 H (BEAKER) (test code = 760) POCT-GLUCOSE [id number] 13:08:00 Test Item Value Reference Range Interpretation Comments POC-GLUCOSE METER 105 mg/dL 70-110 TESTED AT [place] [address] ([facility]) (test code = [facility] [place] 1538) [address] BASIC METABOLIC [id number] 04:31:00 Test Item Value Reference Range Interpretation Comments SODIUM (BEAKER) 136 meq/L 136-145 (test code = 381) POTASSIUM (BEAKER) 3.7 meq/L 3.5-5.1 (test code = 379) CHLORIDE (BEAKER) 98 meq/L 98-107 (test code = 382) CO2 (BEAKER) (test 27 meq/L 22-29 code = 355) BLOOD UREA NITROGEN 23 mg/dL 7-21 H (BEAKER) (test code = 354) CREATININE (BEAKER) 4.45 mg/dL 0.57-1.25 H (test code = 358) GLUCOSE RANDOM 92 mg/dL 70-105 (BEAKER) (test code = 652) CALCIUM (BEAKER) 8.2 mg/dL 8.4-10.2 L (test code = 697) EGFR (BEAKER) (test 16 mL/min/1.73 ESTIMA JAYLA GFR IS code = 1092) sq m NOT ACCURATE CREATININE CLEARANCE IN PREDICTING GLOMERULAR FILTRATION RATE . ESTIMATED GFR I S NOT APPLICABLE FOR DIALYSIS PATIEN TS. [id number] 04:28:00 Test Item Value Reference Range Interpretation Comments PHOSPHORUS (BEAKER) (test code = 3.9 mg/dL 2.3-4.7 604) [id number] 04:28:00 Test Item Value Reference Range Interpretation Comments MAGNESIUM (BEAKER) (test code = 1.7 mg/dL 1.6-2.6 627) HEPATIC FUNCTION [id number] 04:28:00 Test Item Value Reference Range Interpretation Comments TOTAL PROTEIN (BEAKER) (test code = 5.1 gm/dL 6.0-8.3 L 770) ALBUMIN (BEAKER) (test code = 1145) 2.3 g/dL 3.5-5.0 L BILIRUBIN TOTAL (BEAKER) (test code 2.1 mg/dL 0.2-1.2 H = 377) BILIRUBIN DIRECT (BEAKER) (test 1.7 mg/dL 0.1-0.5 H code = 706) ALKALINE PHOSPHATASE (BEAKER) (test 65 U/L 40-150 code = 346) AST (SGOT) (BEAKER) (test code = 31 U/L 5-34 353) ALT (SGPT) (BEAKER) (test code = 33 U/L 6-55 347) [id number] 04:20:00 Test Item Value Reference Range Interpretation Comments PARTIAL THROMBOPLASTIN TIME 106.2 seconds 22.5-36.0 H (BEAKER) (test code = 760) While on warfarin.PROTHROMBIN [id number] 04:15:00 Test Item Value Reference Range Interpretation Comments PROTIME (BEAKER) (test code = 18.4 seconds 11.7-14.7 H 759) INR (BEAKER) (test code = 370) 1.5 <=5.9 RECOMMENDED COUMADIN/WARFARIN INR THERAPY RANGESSTANDARD DOSE: 2.0 - 3.0 Includes: PROPHYLAXIS forvenous thrombosis, systemic embolization; TREATMENT for venous thrombosis and/or pulmonary embolus.HIGH RISK: Target INR is 2.5-3.5 for patients with mechanical heart valves.While on warfarin.CBC W/PLT COUNT & AUTO [id number] 04:05:00 Test Item Value Reference Range Interpretation Comments WHITE BLOOD CELL COUNT (BEAKER) 8.0 K/ L 3.5-10.5 (test code = 775) RED BLOOD CELL COUNT (BEAKER) 2.27 M/ L 4.63-6.08 L (test code = 761) HEMOGLOBIN (BEAKER) (test code = 7.1 GM/DL 13.7-17.5 L 410) HEMATOCRIT (BEAKER) (test code = 22.1 % 40.1-51.0 L 411) MEAN CORPUSCULAR VOLUME (BEAKER) 97.4 fL 79.0-92.2 H (test code = 753) MEAN CORPUSCULAR HEMOGLOBIN 31.3 pg 25.7-32.2 (BEAKER) (test code = 751) MEAN CORPUSCULAR HEMOGLOBIN CONC 32.1 GM/DL 32.3-36.5 L (BEAKER) (test code = 752) RED CELL DISTRIBUTION WIDTH 20.5 % 11.6-14.4 H (BEAKER) (test code = 412) PLATELET COUNT (BEAKER) (test code 96 K/CU MM 150-450 L = 756) MEAN PLATELET VOLUME (BEAKER) 10.1 fL 9.4-12.4 (test code = 754) NUCLEATED RED BLOOD CELLS (BEAKER) 0 /100 WBC 0-0 (test code = 413) NEUTROPHILS RELATIVE PERCENT 78 % (BEAKER) (test code = 429) LYMPHOCYTES RELATIVE PERCENT 12 % (BEAKER) (test code = 430) MONOCYTES RELATIVE PERCENT 8 % (BEAKER) (test code = 431) EOSINOPHILS RELATIVE PERCENT 1 % (BEAKER) (test code = 432) BASOPHILS RELATIVE PERCENT 0 % (BEAKER) (test code = 437) NEUTROPHILS ABSOLUTE COUNT 6.25 K/ L 1.78-5.38 H (BEAKER) (test code = 670) LYMPHOCYTES ABSOLUTE COUNT 0.96 K/ L 1.32-3.57 L (BEAKER) (test code = 414) MONOCYTES ABSOLUTE COUNT (BEAKER) 0.60 K/ L 0.30-0.82 (test code = 415) EOSINOPHILS ABSOLUTE COUNT 0.04 K/ L 0.04-0.54 (BEAKER) (test code = 416) BASOPHILS ABSOLUTE COUNT (BEAKER) 0.02 K/ L 0.01-0.08 (test code = 417) IMMATURE GRANULOCYTES-RELATIVE 2 % 0-1 H PERCENT (BEAKER) (test code = 2801) POCT-GLUCOSE [id number] 00:29:00 Test Item Value Reference Range Interpretation Comments POC-GLUCOSE METER 119 mg/dL 70-110 H TESTED AT [place] [id number] ([facility]) (test code = FOSTER Paul [facility] 1538) [id number] 00:24:00 Test Item Value Reference Range Interpretation Comments PARTIAL THROMBOPLASTIN TIME 72.4 seconds 22.5-36.0 H (BEAKER) (test code = 760) POCT-GLUCOSE [id number] 18:33:00 Test Item Value Reference Range Interpretation Comments POC-GLUCOSE METER 158 mg/dL 70-110 H TESTED AT [place] [address] ([facility]) (test code = [place] Paul [facility] 1538) [id number] 18:22:00 Test Item Value Reference Range Interpretation Comments PARTIAL THROMBOPLASTIN TIME 78.6 seconds 22.5-36.0 H (BEAKER) (test code = 760) POCT-GLUCOSE [id number] 12:20:00 Test Item Value Reference Range Interpretation Comments POC-GLUCOSE METER 110 mg/dL 70-110 TESTED AT [place] [address] ([facility]) (test code = [place] Paul [facility] 1538) [id number] 12:04:00 Test Item Value Reference Range Interpretation Comments PARTIAL THROMBOPLASTIN TIME 98.0 seconds 22.5-36.0 H (BEAKER) (test code = 760) [id number] 04:11:00 Test Item Value Reference Range Interpretation Comments PROTIME (BEAKER) (test code = 15.2 seconds 11.7-14.7 H 759) INR (BEAKER) (test code = 370) 1.2 <=5.9 PARTIAL THROMBOPLASTIN TIME 67.9 seconds 22.5-36.0 H (BEAKER) (test code = 760) RECOMMENDED COUMADIN/WARFARIN INR THERAPY RANGESSTANDARD DOSE: 2.0 - 3.0 Includes: PROPHYLAXIS forvenous thrombosis, systemic embolization; TREATMENT for venous thrombosis and/or pulmonary embolus.HIGH RISK: Target INR is 2.5-3.5 for patients with mechanical heart valves.While on warfarin.While on warfarin. PROTHROMBIN [id number] 04:10:00 Test Item Value Reference Range Interpretation Comments PROTIME (BEAKER) (test code = 15.2 seconds 11.7-14.7 H 759) INR (BEAKER) (test code = 370) 1.2 <=5.9 RECOMMENDED COUMADIN/WARFARIN INR THERAPY RANGESSTANDARD DOSE: 2.0 - 3.0 Includes: PROPHYLAXIS forvenous thrombosis, systemic embolization; TREATMENT for venous thrombosis and/or pulmonary embolus.HIGH RISK: Target INR is 2.5-3.5 for patients with mechanical heart valves.BASIC METABOLIC [id number] 03:53:00 Test Item Value Reference Range Interpretation Comments SODIUM (BEAKER) 134 meq/L 136-145 L (test code = 381) POTASSIUM (BEAKER) 3.9 meq/L 3.5-5.1 (test code = 379) CHLORIDE (BEAKER) 96 meq/L 98-107 L (test code = 382) CO2 (BEAKER) (test 23 meq/L 22-29 code = 355) BLOOD UREA NITROGEN 52 mg/dL 7-21 H (BEAKER) (test code = 354) CREATININE (BEAKER) 6.75 mg/dL 0.57-1.25 H (test code = 358) GLUCOSE RANDOM 107 mg/dL 70-105 H (BEAKER) (test code = 652) CALCIUM (BEAKER) 8.7 mg/dL 8.4-10.2 (test code = 697) EGFR (BEAKER) (test 10 mL/min/1.73 ESTIMA JAYLA GFR IS code = 1092) sq m NOT ACCURATE CREATININE CLEARANCE IN PREDICTING GLOMERULAR FILTRATION RATE . ESTIMATED GFR I S NOT APPLICABLE FOR DIALYSIS PATIEN TS. CBC W/PLT COUNT & AUTO [id number] 03:50:00 Test Item Value Reference Range Interpretation Comments WHITE BLOOD CELL COUNT (BEAKER) 10.5 K/ L 3.5-10.5 (test code = 775) RED BLOOD CELL COUNT (BEAKER) 2.55 M/ L 4.63-6.08 L (test code = 761) HEMOGLOBIN (BEAKER) (test code = 8.0 GM/DL 13.7-17.5 L 410) HEMATOCRIT (BEAKER) (test code = 24.6 % 40.1-51.0 L 411) MEAN CORPUSCULAR VOLUME (BEAKER) 96.5 fL 79.0-92.2 H (test code = 753) MEAN CORPUSCULAR HEMOGLOBIN 31.4 pg 25.7-32.2 (BEAKER) (test code = 751) MEAN CORPUSCULAR HEMOGLOBIN CONC 32.5 GM/DL 32.3-36.5 (BEAKER) (test code = 752) RED CELL DISTRIBUTION WIDTH 19.8 % 11.6-14.4 H (BEAKER) (test code = 412) PLATELET COUNT (BEAKER) (test 141 K/CU MM 150-450 L code = 756) MEAN PLATELET VOLUME (BEAKER) 9.6 fL 9.4-12.4 (test code = 754) NUCLEATED RED BLOOD CELLS 0 /100 WBC 0-0 (BEAKER) (test code = 413) NEUTROPHILS RELATIVE PERCENT 80 % (BEAKER) (test code = 429) LYMPHOCYTES RELATIVE PERCENT 11 % (BEAKER) (test code = 430) MONOCYTES RELATIVE PERCENT 7 % (BEAKER) (test code = 431) EOSINOPHILS RELATIVE PERCENT 1 % (BEAKER) (test code = 432) BASOPHILS RELATIVE PERCENT 0 % (BEAKER) (test code = 437) NEUTROPHILS ABSOLUTE COUNT 8.37 K/ L 1.78-5.38 H (BEAKER) (test code = 670) LYMPHOCYTES ABSOLUTE COUNT 1.11 K/ L 1.32-3.57 L (BEAKER) (test code = 414) MONOCYTES ABSOLUTE COUNT (BEAKER) 0.73 K/ L 0.30-0.82 (test code = 415) EOSINOPHILS ABSOLUTE COUNT 0.07 K/ L 0.04-0.54 (BEAKER) (test code = 416) BASOPHILS ABSOLUTE COUNT (BEAKER) 0.02 K/ L 0.01-0.08 (test code = 417) IMMATURE GRANULOCYTES-RELATIVE 2 % 0-1 H PERCENT (BEAKER) (test code = 2801) [id number] 03:45:00 Test Item Value Reference Range Interpretation Comments PHOSPHORUS (BEAKER) (test code = 4.7 mg/dL 2.3-4.7 604) [id number] 03:45:00 Test Item Value Reference Range Interpretation Comments MAGNESIUM (BEAKER) (test code = 2.0 mg/dL 1.6-2.6 627) HEPATIC FUNCTION [id number] 03:45:00 Test Item Value Reference Range Interpretation Comments TOTAL PROTEIN (BEAKER) (test code = 5.5 gm/dL 6.0-8.3 L 770) ALBUMIN (BEAKER) (test code = 1145) 2.4 g/dL 3.5-5.0 L BILIRUBIN TOTAL (BEAKER) (test code 2.4 mg/dL 0.2-1.2 H = 377) BILIRUBIN DIRECT (BEAKER) (test 2.0 mg/dL 0.1-0.5 H code = 706) ALKALINE PHOSPHATASE (BEAKER) (test 69 U/L 40-150 code = 346) AST (SGOT) (BEAKER) (test code = 34 U/L 5-34 353) ALT (SGPT) (BEAKER) (test code = 36 U/L 6-55 347) [id number] 22:16:00 Test Item Value Reference Range Interpretation Comments PARTIAL THROMBOPLASTIN TIME 60.7 seconds 22.5-36.0 H (BEAKER) (test code = 760) POCT-GLUCOSE [id number] 18:32:00 Test Item Value Reference Range Interpretation Comments POC-GLUCOSE METER 125 mg/dL 70-110 H TESTED AT [facility] 6720 (BEAKER) (test code = [place] 1538) [id number] CBC (HEMOGRAM ONLY)2018-01-26 17:21:00 Test Item Value Reference Range Interpretation Comments WHITE BLOOD CELL COUNT (BEAKER) 10.2 K/ L 3.5-10.5 (test code = 775) RED BLOOD CELL COUNT (BEAKER) 2.57 M/ L 4.63-6.08 L (test code = 761) HEMOGLOBIN (BEAKER) (test code = 8.1 GM/DL 13.7-17.5 L 410) HEMATOCRIT (BEAKER) (test code = 24.8 % 40.1-51.0 L 411) MEAN CORPUSCULAR VOLUME (BEAKER) 96.5 fL 79.0-92.2 H (test code = 753) MEAN CORPUSCULAR HEMOGLOBIN 31.5 pg 25.7-32.2 (BEAKER) (test code = 751) MEAN CORPUSCULAR HEMOGLOBIN CONC 32.7 GM/DL 32.3-36.5 (BEAKER) (test code = 752) RED CELL DISTRIBUTION WIDTH 19.8 % 11.6-14.4 H (BEAKER) (test code = 412) PLATELET COUNT (BEAKER) (test 148 K/CU MM 150-450 L code = 756) MEAN PLATELET VOLUME (BEAKER) 9.4 fL 9.4-12.4 (test code = 754) NUCLEATED RED BLOOD CELLS 0 /100 WBC 0-0 (BEAKER) (test code = 413) BASIC METABOLIC [id number] 07:16:00 Test Item Value Reference Range Interpretation Comments SODIUM (BEAKER) 137 meq/L 136-145 (test code = 381) POTASSIUM (BEAKER) 3.6 meq/L 3.5-5.1 (test code = 379) CHLORIDE (BEAKER) 97 meq/L 98-107 L (test code = 382) CO2 (BEAKER) (test 27 meq/L 22-29 code = 355) BLOOD UREA NITROGEN 44 mg/dL 7-21 H (BEAKER) (test code = 354) CREATININE (BEAKER) 5.57 mg/dL 0.57-1.25 H (test code = 358) GLUCOSE RANDOM 100 mg/dL 70-105 (BEAKER) (test code = 652) CALCIUM (BEAKER) 8.6 mg/dL 8.4-10.2 (test code = 697) EGFR (BEAKER) (test 13 mL/min/1.73 ESTIMA JAYLA GFR IS code = 1092) sq m NOT ACCURATE CREATININE CLEARANCE IN PREDICTING GLOMERULAR FILTRATION RATE . ESTIMATED GFR I S NOT APPLICABLE FOR DIALYSIS PATIEN TS. [id number] 07:13:00 Test Item Value Reference Range Interpretation Comments PHOSPHORUS (BEAKER) (test code = 4.3 mg/dL 2.3-4.7 604) [id number] 07:13:00 Test Item Value Reference Range Interpretation Comments MAGNESIUM (BEAKER) (test code = 2.0 mg/dL 1.6-2.6 627) HEPATIC FUNCTION [id number] 07:13:00 Test Item Value Reference Range Interpretation Comments TOTAL PROTEIN (BEAKER) (test code = 5.4 gm/dL 6.0-8.3 L 770) ALBUMIN (BEAKER) (test code = 1145) 2.4 g/dL 3.5-5.0 L BILIRUBIN TOTAL (BEAKER) (test code 2.6 mg/dL 0.2-1.2 H = 377) BILIRUBIN DIRECT (BEAKER) (test 2.2 mg/dL 0.1-0.5 H code = 706) ALKALINE PHOSPHATASE (BEAKER) (test 65 U/L 40-150 code = 346) AST (SGOT) (BEAKER) (test code = 32 U/L 5-34 353) ALT (SGPT) (BEAKER) (test code = 37 U/L 6-55 347) [id number] 07:12:00 Test Item Value Reference Range Interpretation Comments PROTIME (BEAKER) (test code = 14.2 seconds 11.7-14.7 759) INR (BEAKER) (test code = 370) 1.1 <=5.9 PARTIAL THROMBOPLASTIN TIME 66.6 seconds 22.5-36.0 H (BEAKER) (test code = 760) RECOMMENDED COUMADIN/WARFARIN INR THERAPY RANGESSTANDARD DOSE: 2.0 - 3.0 Includes: PROPHYLAXIS forvenous thrombosis, systemic embolization; TREATMENT for venous thrombosis and/or pulmonary embolus.HIGH RISK: Target INR is 2.5-3.5 for patients with mechanical heart valves.CBC W/PLT COUNT & AUTO DIFFERENTIAL 2018-01-26 06:58:00 Test Item Value Reference Range Interpretation Comments WHITE BLOOD CELL COUNT (BEAKER) 9.5 K/ L 3.5-10.5 (test code = 775) RED BLOOD CELL COUNT (BEAKER) 2.50 M/ L 4.63-6.08 L (test code = 761) HEMOGLOBIN (BEAKER) (test code = 7.8 GM/DL 13.7-17.5 L 410) HEMATOCRIT (BEAKER) (test code = 24.2 % 40.1-51.0 L 411) MEAN CORPUSCULAR VOLUME (BEAKER) 96.8 fL 79.0-92.2 H (test code = 753) MEAN CORPUSCULAR HEMOGLOBIN 31.2 pg 25.7-32.2 (BEAKER) (test code = 751) MEAN CORPUSCULAR HEMOGLOBIN CONC 32.2 GM/DL 32.3-36.5 L (BEAKER) (test code = 752) RED CELL DISTRIBUTION WIDTH 19.8 % 11.6-14.4 H (BEAKER) (test code = 412) PLATELET COUNT (BEAKER) (test 142 K/CU MM 150-450 L code = 756) MEAN PLATELET VOLUME (BEAKER) 9.9 fL 9.4-12.4 (test code = 754) NUCLEATED RED BLOOD CELLS 0 /100 WBC 0-0 (BEAKER) (test code = 413) NEUTROPHILS RELATIVE PERCENT 81 % (BEAKER) (test code = 429) LYMPHOCYTES RELATIVE PERCENT 9 % (BEAKER) (test code = 430) MONOCYTES RELATIVE PERCENT 7 % (BEAKER) (test code = 431) EOSINOPHILS RELATIVE PERCENT 1 % (BEAKER) (test code = 432) BASOPHILS RELATIVE PERCENT 0 % (BEAKER) (test code = 437) NEUTROPHILS ABSOLUTE COUNT 7.74 K/ L 1.78-5.38 H (BEAKER) (test code = 670) LYMPHOCYTES ABSOLUTE COUNT 0.89 K/ L 1.32-3.57 L (BEAKER) (test code = 414) MONOCYTES ABSOLUTE COUNT (BEAKER) 0.62 K/ L 0.30-0.82 (test code = 415) EOSINOPHILS ABSOLUTE COUNT 0.06 K/ L 0.04-0.54 (BEAKER) (test code = 416) BASOPHILS ABSOLUTE COUNT (BEAKER) 0.01 K/ L 0.01-0.08 (test code = 417) IMMATURE GRANULOCYTES-RELATIVE 2 % 0-1 H PERCENT (BEAKER) (test code = 2801) BLOOD [id number] 00:00:00 Test Item Value Reference Range Interpretation Comments CULTURE (BEAKER) (test No growth in 5 days code = 1095) BLOOD [id number] 00:00:00 Test Item Value Reference Range Interpretation Comments CULTURE (BEAKER) (test No growth in 5 days code = 1095) POCT-GLUCOSE [id number] 23:37:00 Test Item Value Reference Range Interpretation Comments POC-GLUCOSE METER 87 mg/dL 70-110 TESTED AT [place] [address] ([facility]) (test code = [facility] [address] 1538) [id number] 23:06:00 Test Item Value Reference Range Interpretation Comments PARTIAL THROMBOPLASTIN TIME 81.8 seconds 22.5-36.0 H (BEAKER) (test code = 760) POCT-GLUCOSE [id number] 20:42:00 Test Item Value Reference Range Interpretation Comments POC-GLUCOSE METER 193 mg/dL 70-110 H TESTED AT [place] [address] ([facility]) (test code = [facility] 1538) [id number] HEMOGLOBIN AND [id number] 17:40:00 Test Item Value Reference Range Interpretation Comments HEMOGLOBIN (BEAKER) (test code = 8.4 GM/DL 13.7-17.5 L 410) HEMATOCRIT (BEAKER) (test code = 25.4 % 40.1-51.0 L 411) [id number] 13:06:00 Test Item Value Reference Range Interpretation Comments PARTIAL THROMBOPLASTIN TIME 61.4 seconds 22.5-36.0 H (BEAKER) (test code = 760) POCT-GLUCOSE [id number] 12:56:00 Test Item Value Reference Range Interpretation Comments POC-GLUCOSE METER 116 mg/dL 70-110 H TESTED AT [place] [address] (BEAKER) (test code = [facility] 1538) [id number] 06:43:00 Test Item Value Reference Range Interpretation Comments FERRITIN (BEAKER) (test code = 2521 ng/mL 5-275 H 361) IRON, TIBC, % SAT. (WITHOUT FERRITIN)2018-01-25 05:51:00 Test Item Value Reference Range Interpretation Comments IRON (BEAKER) (test code = 547) 61 ug/dL 40-160 TOTAL IRON BINDING CAPACITY 165 ug/dL 250-450 L (BEAKER) (test code = 769) IRON % SATURATION (2) (BEAKER) 37 % 20-55 (test code = 2590) [id number] 05:32:00 Test Item Value Reference Range Interpretation Comments PARTIAL THROMBOPLASTIN TIME 63.7 seconds 22.5-36.0 H (BEAKER) (test code = 760) BASIC METABOLIC [id number] 05:03:00 Test Item Value Reference Range Interpretation Comments SODIUM (BEAKER) 140 meq/L 136-145 (test code = 381) POTASSIUM (BEAKER) 3.8 meq/L 3.5-5.1 (test code = 379) CHLORIDE (BEAKER) 99 meq/L 98-107 (test code = 382) CO2 (BEAKER) (test 28 meq/L 22-29 code = 355) BLOOD UREA NITROGEN 32 mg/dL 7-21 H (BEAKER) (test code = 354) CREATININE (BEAKER) 3.87 mg/dL 0.57-1.25 H (test code = 358) GLUCOSE RANDOM 145 mg/dL 70-105 H (BEAKER) (test code = 652) CALCIUM (BEAKER) 8.5 mg/dL 8.4-10.2 (test code = 697) EGFR (BEAKER) (test 19 mL/min/1.73 ESTIMA JAYLA GFR IS code = 1092) sq m NOT ACCURATE CREATININE CLEARANCE IN PREDICTING GLOMERULAR FILTRATION RATE . ESTIMATED GFR I S NOT APPLICABLE FOR DIALYSIS PATIEN TS. HEPATIC FUNCTION [id number] 05:00:00 Test Item Value Reference Range Interpretation Comments TOTAL PROTEIN (BEAKER) (test code = 5.3 gm/dL 6.0-8.3 L 770) ALBUMIN (BEAKER) (test code = 1145) 2.3 g/dL 3.5-5.0 L BILIRUBIN TOTAL (BEAKER) (test code 3.0 mg/dL 0.2-1.2 H = 377) BILIRUBIN DIRECT (BEAKER) (test 2.5 mg/dL 0.1-0.5 H code = 706) ALKALINE PHOSPHATASE (BEAKER) (test 72 U/L 40-150 code = 346) AST (SGOT) (BEAKER) (test code = 34 U/L 5-34 353) ALT (SGPT) (BEAKER) (test code = 41 U/L 6-55 347) [id number] 04:40:00 Test Item Value Reference Range Interpretation Comments PROTIME (BEAKER) (test code = 14.5 seconds 11.7-14.7 759) INR (BEAKER) (test code = 370) 1.1 <=5.9 PARTIAL THROMBOPLASTIN TIME 64.1 seconds 22.5-36.0 H (BEAKER) (test code = 760) RECOMMENDED COUMADIN/WARFARIN INR THERAPY RANGESSTANDARD DOSE: 2.0 - 3.0 Includes: PROPHYLAXIS forvenous thrombosis, systemic embolization; TREATMENT for venous thrombosis and/or pulmonary embolus.HIGH RISK: Target INR is 2.5-3.5 for patients with mechanical heart valves.CBC (HEMOGRAM ONLY)2018-01-25 04:27:00 Test Item Value Reference Range Interpretation Comments WHITE BLOOD CELL COUNT (BEAKER) 11.7 K/ L 3.5-10.5 H (test code = 775) RED BLOOD CELL COUNT (BEAKER) 2.55 M/ L 4.63-6.08 L (test code = 761) HEMOGLOBIN (BEAKER) (test code = 7.9 GM/DL 13.7-17.5 L 410) HEMATOCRIT (BEAKER) (test code = 24.6 % 40.1-51.0 L 411) MEAN CORPUSCULAR VOLUME (BEAKER) 96.5 fL 79.0-92.2 H (test code = 753) MEAN CORPUSCULAR HEMOGLOBIN 31.0 pg 25.7-32.2 (BEAKER) (test code = 751) MEAN CORPUSCULAR HEMOGLOBIN CONC 32.1 GM/DL 32.3-36.5 L (BEAKER) (test code = 752) RED CELL DISTRIBUTION WIDTH 20.1 % 11.6-14.4 H (BEAKER) (test code = 412) PLATELET COUNT (BEAKER) (test 123 K/CU MM 150-450 L code = 756) MEAN PLATELET VOLUME (BEAKER) 10.1 fL 9.4-12.4 (test code = 754) NUCLEATED RED BLOOD CELLS 0 /100 WBC 0-0 (BEAKER) (test code = 413) POCT-GLUCOSE [id number] 00:30:00 Test Item Value Reference Range Interpretation Comments POC-GLUCOSE METER 112 mg/dL 70-110 H TESTED AT [facility] 6720 (BEAKER) (test code = [place] 153) [id number] CBC W/PLT COUNT & AUTO [id number] 19:16:00 Test Item Value Reference Range Interpretation Comments WHITE BLOOD CELL COUNT (BEAKER) 15.7 K/ L 3.5-10.5 H (test code = 775) RED BLOOD CELL COUNT (BEAKER) 2.89 M/ L 4.63-6.08 L (test code = 761) HEMOGLOBIN (BEAKER) (test code = 9.1 GM/DL 13.7-17.5 L 410) HEMATOCRIT (BEAKER) (test code = 27.3 % 40.1-51.0 L 411) MEAN CORPUSCULAR VOLUME (BEAKER) 94.5 fL 79.0-92.2 H (test code = 753) MEAN CORPUSCULAR HEMOGLOBIN 31.5 pg 25.7-32.2 (BEAKER) (test code = 751) MEAN CORPUSCULAR HEMOGLOBIN CONC 33.3 GM/DL 32.3-36.5 (BEAKER) (test code = 752) RED CELL DISTRIBUTION WIDTH 19.9 % 11.6-14.4 H (BEAKER) (test code = 412) PLATELET COUNT (BEAKER) (test 149 K/CU MM 150-450 L code = 756) MEAN PLATELET VOLUME (BEAKER) 9.6 fL 9.4-12.4 (test code = 754) NUCLEATED RED BLOOD CELLS 0 /100 WBC 0-0 (BEAKER) (test code = 413) NEUTROPHILS RELATIVE PERCENT 88 % (BEAKER) (test code = 429) LYMPHOCYTES RELATIVE PERCENT 5 % (BEAKER) (test code = 430) MONOCYTES RELATIVE PERCENT 6 % (BEAKER) (test code = 431) EOSINOPHILS RELATIVE PERCENT 0 % (BEAKER) (test code = 432) BASOPHILS RELATIVE PERCENT 0 % (BEAKER) (test code = 437) NEUTROPHILS ABSOLUTE COUNT 13.71 K/ L 1.78-5.38 H (BEAKER) (test code = 670) LYMPHOCYTES ABSOLUTE COUNT 0.76 K/ L 1.32-3.57 L (BEAKER) (test code = 414) MONOCYTES ABSOLUTE COUNT (BEAKER) 0.90 K/ L 0.30-0.82 H (test code = 415) EOSINOPHILS ABSOLUTE COUNT 0.07 K/ L 0.04-0.54 (BEAKER) (test code = 416) BASOPHILS ABSOLUTE COUNT (BEAKER) 0.02 K/ L 0.01-0.08 (test code = 417) IMMATURE GRANULOCYTES-RELATIVE 1 % 0-1 PERCENT (BEAKER) (test code = 2801) POCT-GLUCOSE [id number] 18:27:00 Test Item Value Reference Range Interpretation Comments POC-GLUCOSE METER 102 mg/dL 70-110 TESTED AT [facility] 6720 (BEAKER) (test code = [place] [facility] 1538) [address] POCT-GLUCOSE [id number] 13:01:00 Test Item Value Reference Range Interpretation Comments POC-GLUCOSE METER 119 mg/dL 70-110 H TESTED AT [facility] 6720 (BEAKER) (test code = [place] Paul [facility] 1538) [address] RAD, CHEST, 1 VIEW, NON [id number] 10:59:00Reason for exam:->ptxShould this be performed at [...] MDReport Verified Date/Time: 01/24/2018 10:59:29 Reading Location: [facility] Diagnostic Imaging Reading Room - [place] [address] BRONCHIAL CULTURE + GRAM STAIN 2018-01-24 08:53:00 Test Item Value Reference Range Interpretation Comments CULTURE (BEAKER) 2+ Normal respiratory (test code = 1095) pete present GRAM STAIN RESULT 4+ White blood cells (BEAKER) (test code = seen 1123) GRAM STAIN RESULT No organisms seen (BEAKER) (test code = 83325) POCT-GLUCOSE [id number] 06:28:00 Test Item Value Reference Range Interpretation Comments POC-GLUCOSE METER 119 mg/dL 70-110 H TESTED AT [facility] 6720 (BEAKER) (test code = [place] 1538) [address] BASIC METABOLIC [id number] 04:41:00 Test Item Value Reference Range Interpretation Comments SODIUM (BEAKER) 138 meq/L 136-145 (test code = 381) POTASSIUM (BEAKER) 4.1 meq/L 3.5-5.1 (test code = 379) CHLORIDE (BEAKER) 98 meq/L 98-107 (test code = 382) CO2 (BEAKER) (test 24 meq/L 22-29 code = 355) BLOOD UREA NITROGEN 59 mg/dL 7-21 H (BEAKER) (test code = 354) CREATININE (BEAKER) 5.65 mg/dL 0.57-1.25 H (test code = 358) GLUCOSE RANDOM 118 mg/dL 70-105 H (BEAKER) (test code = 652) CALCIUM (BEAKER) 8.8 mg/dL 8.4-10.2 (test code = 697) EGFR (BEAKER) (test 13 mL/min/1.73 ESTIMA JAYLA GFR IS code = 1092) sq m NOT ACCURATE CREATININE CLEARANCE IN PREDICTING GLOMERULAR FILTRATION RATE . ESTIMATED GFR I S NOT APPLICABLE FOR DIALYSIS PATIEN TS. Specimen slightly ictericCBC (HEMOGRAM ONLY)2018-01-24 04:34:00 Test Item Value Reference Range Interpretation Comments WHITE BLOOD CELL COUNT (BEAKER) 13.4 K/ L 3.5-10.5 H (test code = 775) RED BLOOD CELL COUNT (BEAKER) 2.40 M/ L 4.63-6.08 L (test code = 761) HEMOGLOBIN (BEAKER) (test code = 7.4 GM/DL 13.7-17.5 L 410) HEMATOCRIT (BEAKER) (test code = 22.8 % 40.1-51.0 L 411) MEAN CORPUSCULAR VOLUME (BEAKER) 95.0 fL 79.0-92.2 H (test code = 753) MEAN CORPUSCULAR HEMOGLOBIN 30.8 pg 25.7-32.2 (BEAKER) (test code = 751) MEAN CORPUSCULAR HEMOGLOBIN CONC 32.5 GM/DL 32.3-36.5 (BEAKER) (test code = 752) RED CELL DISTRIBUTION WIDTH 19.8 % 11.6-14.4 H (BEAKER) (test code = 412) PLATELET COUNT (BEAKER) (test 107 K/CU MM 150-450 L code = 756) MEAN PLATELET VOLUME (BEAKER) 10.6 fL 9.4-12.4 (test code = 754) NUCLEATED RED BLOOD CELLS 0 /100 WBC 0-0 (BEAKER) (test code = 413) [id number] 04:21:00 Test Item Value Reference Range Interpretation Comments MAGNESIUM (BEAKER) (test code = 2.0 mg/dL 1.6-2.6 627) HEPATIC FUNCTION [id number] 04:21:00 Test Item Value Reference Range Interpretation Comments TOTAL PROTEIN (BEAKER) (test code = 5.2 gm/dL 6.0-8.3 L 770) ALBUMIN (BEAKER) (test code = 1145) 2.3 g/dL 3.5-5.0 L BILIRUBIN TOTAL (BEAKER) (test code 3.9 mg/dL 0.2-1.2 H = 377) BILIRUBIN DIRECT (BEAKER) (test 3.1 mg/dL 0.1-0.5 H code = 706) ALKALINE PHOSPHATASE (BEAKER) (test 69 U/L 40-150 code = 346) AST (SGOT) (BEAKER) (test code = 36 U/L 5-34 H 353) ALT (SGPT) (BEAKER) (test code = 36 U/L 6-55 347) Specimen slightly [id number] 04:13:00 Test Item Value Reference Range Interpretation Comments PARTIAL THROMBOPLASTIN TIME 72.1 seconds 22.5-36.0 H (BEAKER) (test code = 760) BLOOD GAS, [id number] 04:13:00 Test Item Value Reference Range Interpretation Comments PH ARTERIAL (BEAKER) (test code = 7.39 7.35-7.45 383) PCO2 ARTERIAL (BEAKER) (test code 48 mmHg 35-45 H = 384) PO2 ARTERIAL (BEAKER) (test code = 151 mmHg 80-90 H 385) O2 SATURATION ARTERIAL (BEAKER) 98.9 % 96.0-97.0 H (test code = 386) HCO3 ARTERIAL (BEAKER) (test code 28 mmol/L 21-29 = 388) BASE EXCESS ARTERIAL (BEAKER) 3.1 mmol/L -2.0-3.0 H (test code = 387) PATIENT TEMPERATURE (BEAKER) (test 37.0 C code = 1818) FIO2 (BEAKER) (test code = 1819) 100.0 % POCT-GLUCOSE [id number] 00:08:00 Test Item Value Reference Range Interpretation Comments POC-GLUCOSE METER 150 mg/dL 70-110 H TESTED AT [place] [id number] ([facility]) (test code = [facility] 1538) [address] POCT-GLUCOSE [id number] 18:45:00 Test Item Value Reference Range Interpretation Comments POC-GLUCOSE METER 162 mg/dL 70-110 H TESTED AT [place] [address] ([facility]) (test code = [facility] 1538) [address] POCT-GLUCOSE [id number] 13:14:00 Test Item Value Reference Range Interpretation Comments POC-GLUCOSE METER 176 mg/dL 70-110 H TESTED AT [place] [address] ([facility]) (test code = [facility] 1538) [address] POCT-GLUCOSE [id number] 10:44:00 Test Item Value Reference Range Interpretation Comments POC-GLUCOSE METER 146 mg/dL 70-110 H TESTED AT [place] [address] ([facility]) (test code = [facility] 1538) [address] BLOOD GAS, [id number] 10:32:00 Test Item Value Reference Range Interpretation Comments PH ARTERIAL (BEAKER) (test code = 7.44 7.35-7.45 383) PCO2 ARTERIAL (BEAKER) (test code 45 mmHg 35-45 = 384) PO2 ARTERIAL (BEAKER) (test code = 145 mmHg 80-90 H 385) O2 SATURATION ARTERIAL (BEAKER) 98.9 % 96.0-97.0 H (test code = 386) HCO3 ARTERIAL (BEAKER) (test code 30 mmol/L 21-29 H = 388) BASE EXCESS ARTERIAL (BEAKER) 4.6 mmol/L -2.0-3.0 H (test code = 387) PATIENT TEMPERATURE (BEAKER) (test 36.5 C code = 1818) FIO2 (BEAKER) (test code = 1819) 40.0 % RAD, CHEST, 1 VIEW, NON [id number] 09:14:00Reason for exam:->ptxShould this be performed at [...] MDReport Verified Date/Time: 01/23/2018 09:14:48 Reading Location: [facility] Radiology Reading Room Electronically sign ed by: KYLE ROME M.D. on 01/23/2018 09:14 AMBLOOD [id number] 08:09:00 Test Item Value Reference Range Interpretation Comments CULTURE (BEAKER) A From Aerobi c Bottle (test code = Only Lactobacil [place] 1095) species GRAM STAIN From aerobic RESULT (BEAKER) bottle only: gram (test code = positive rods 1123) NOT DETECTEDPanel is negative for [employer] BCID-detectable organisms. Please refer to traditional culture and sensitivity results as they become available.Other organisms and resistance markers not contained in this PCR panel cannot be excluded and follow-up of traditional culture results is required.This sample was tested at the [facility] Clinical [facility]biology Laboratory using the [employer] Film[employer] Blood Culture ID Panel. This test is FDA cleared for in vitro diagnostic use and has been verified and approved by the [facility] Clinical Microbiology laboratory for clinical use. Reference Range: Not DetectedBLOOD GAS, [id number] 04:45:00 Test Item Value Reference Range Interpretation Comments PH ARTERIAL (BEAKER) (test code = 7.42 7.35-7.45 383) PCO2 ARTERIAL (BEAKER) (test code 46 mmHg 35-45 H = 384) PO2 ARTERIAL (BEAKER) (test code = 192 mmHg 80-90 H 385) O2 SATURATION ARTERIAL (BEAKER) 99.3 % 96.0-97.0 H (test code = 386) HCO3 ARTERIAL (BEAKER) (test code 29 mmol/L 21-29 = 388) BASE EXCESS ARTERIAL (BEAKER) 4.2 mmol/L -2.0-3.0 H (test code = 387) PATIENT TEMPERATURE (BEAKER) (test 37.0 C code = 1818) FIO2 (BEAKER) (test code = 1819) 40.0 % BASIC METABOLIC [id number] 04:39:00 Test Item Value Reference Range Interpretation Comments SODIUM (BEAKER) 137 meq/L 136-145 (test code = 381) POTASSIUM (BEAKER) 3.8 meq/L 3.5-5.1 (test code = 379) CHLORIDE (BEAKER) 100 meq/L 98-107 (test code = 382) CO2 (BEAKER) (test 26 meq/L 22-29 code = 355) BLOOD UREA NITROGEN 39 mg/dL 7-21 H (BEAKER) (test code = 354) CREATININE (BEAKER) 3.80 mg/dL 0.57-1.25 H (test code = 358) GLUCOSE RANDOM 137 mg/dL 70-105 H (BEAKER) (test code = 652) CALCIUM (BEAKER) 8.1 mg/dL 8.4-10.2 L (test code = 697) EGFR (BEAKER) (test 20 mL/min/1.73 ESTIMA JAYLA GFR IS code = 1092) sq m NOT ACCURATE CREATININE CLEARANCE IN PREDICTING GLOMERULAR FILTRATION RATE . ESTIMATED GFR I S NOT APPLICABLE FOR DIALYSIS PATIEN TS. Specimen slightly [id number] 04:35:00 Test Item Value Reference Range Interpretation Comments MAGNESIUM (BEAKER) (test code = 1.8 mg/dL 1.6-2.6 627) HEPATIC FUNCTION [id number] 04:35:00 Test Item Value Reference Range Interpretation Comments TOTAL PROTEIN (BEAKER) (test code = 4.8 gm/dL 6.0-8.3 L 770) ALBUMIN (BEAKER) (test code = 1145) 2.3 g/dL 3.5-5.0 L BILIRUBIN TOTAL (BEAKER) (test code 4.2 mg/dL 0.2-1.2 H = 377) BILIRUBIN DIRECT (BEAKER) (test 3.5 mg/dL 0.1-0.5 H code = 706) ALKALINE PHOSPHATASE (BEAKER) (test 64 U/L 40-150 code = 346) AST (SGOT) (BEAKER) (test code = 33 U/L 5-34 353) ALT (SGPT) (BEAKER) (test code = 40 U/L 6-55 347) Specimen slightly [id number] 04:18:00 Test Item Value Reference Range Interpretation Comments PARTIAL THROMBOPLASTIN TIME 68.0 seconds 22.5-36.0 H (BEAKER) (test code = 760) CBC (HEMOGRAM ONLY)2018-01-23 04:10:00 Test Item Value Reference Range Interpretation Comments WHITE BLOOD CELL COUNT (BEAKER) 17.0 K/ L 3.5-10.5 H (test code = 775) RED BLOOD CELL COUNT (BEAKER) 2.48 M/ L 4.63-6.08 L (test code = 761) HEMOGLOBIN (BEAKER) (test code = 7.7 GM/DL 13.7-17.5 L 410) HEMATOCRIT (BEAKER) (test code = 23.4 % 40.1-51.0 L 411) MEAN CORPUSCULAR VOLUME (BEAKER) 94.4 fL 79.0-92.2 H (test code = 753) MEAN CORPUSCULAR HEMOGLOBIN 31.0 pg 25.7-32.2 (BEAKER) (test code = 751) MEAN CORPUSCULAR HEMOGLOBIN CONC 32.9 GM/DL 32.3-36.5 (BEAKER) (test code = 752) RED CELL DISTRIBUTION WIDTH 20.4 % 11.6-14.4 H (BEAKER) (test code = 412) PLATELET COUNT (BEAKER) (test code 85 K/CU MM 150-450 L = 756) MEAN PLATELET VOLUME (BEAKER) 10.1 fL 9.4-12.4 (test code = 754) NUCLEATED RED BLOOD CELLS (BEAKER) 0 /100 WBC 0-0 (test code = 413) POCT-GLUCOSE [id number] 00:52:00 Test Item Value Reference Range Interpretation Comments POC-GLUCOSE METER 145 mg/dL 70-110 H TESTED AT [facility] 6720 ([facility]) (test code = MARIA GOSMAN BRANDON 1538) [address] BLOOD [id number] 00:00:00 Test Item Value Reference Range Interpretation Comments CULTURE (BEAKER) (test No growth in 5 days code = 1095) POCT-GLUCOSE [id number] 18:17:00 Test Item Value Reference Range Interpretation Comments POC-GLUCOSE METER 97 mg/dL 70-110 TESTED AT [place] [address] (BEAKER) [facility] [address] 1538) POCT-GLUCOSE [id number] 13:26:00 Test Item Value Reference Range Interpretation Comments POC-GLUCOSE METER 138 mg/dL 70-110 H TESTED AT [place] [address] (BEAKER) (test code = [facility] 1538) [address] BLOOD GAS, [id number] 10:32:00 Test Item Value Reference Range Interpretation Comments PH ARTERIAL (BEAKER) (test code = 7.43 7.35-7.45 383) PCO2 ARTERIAL (BEAKER) (test code 39 mmHg 35-45 = 384) PO2 ARTERIAL (BEAKER) (test code = 145 mmHg 80-90 H 385) O2 SATURATION ARTERIAL (BEAKER) 98.9 % 96.0-97.0 H (test code = 386) HCO3 ARTERIAL (BEAKER) (test code 25 mmol/L 21-29 = 388) BASE EXCESS ARTERIAL (BEAKER) 0.7 mmol/L -2.0-3.0 (test code = 387) PATIENT TEMPERATURE (BEAKER) (test 37.0 C code = 1818) FIO2 (BEAKER) (test code = 1819) 40.0 % POCT-GLUCOSE [id number] 06:21:00 Test Item Value Reference Range Interpretation Comments POC-GLUCOSE METER 138 mg/dL 70-110 H TESTED AT [place] [address] (BEAKER) (test code = [facility] 1538) [address] BASIC METABOLIC [id number] 04:25:00 Test Item Value Reference Range Interpretation Comments SODIUM (BEAKER) 135 meq/L 136-145 L (test code = 381) POTASSIUM (BEAKER) 4.1 meq/L 3.5-5.1 (test code = 379) CHLORIDE (BEAKER) 98 meq/L 98-107 (test code = 382) CO2 (BEAKER) (test 24 meq/L 22-29 code = 355) BLOOD UREA NITROGEN 76 mg/dL 7-21 H (BEAKER) (test code = 354) CREATININE (BEAKER) 5.57 mg/dL 0.57-1.25 H (test code = 358) GLUCOSE RANDOM 120 mg/dL 70-105 H (BEAKER) (test code = 652) CALCIUM (BEAKER) 7.8 mg/dL 8.4-10.2 L (test code = 697) EGFR (BEAKER) (test 13 mL/min/1.73 ESTIMA JAYLA GFR IS code = 1092) sq m NOT ACCURATE CREATININE CLEARANCE IN PREDICTING GLOMERULAR FILTRATION RATE . ESTIMATED GFR I S NOT APPLICABLE FOR DIALYSIS PATIEN TS. Specimen slightly [id number] 04:24:00 Test Item Value Reference Range Interpretation Comments MAGNESIUM (BEAKER) (test code = 2.1 mg/dL 1.6-2.6 627) HEPATIC FUNCTION [id number] 04:24:00 Test Item Value Reference Range Interpretation Comments TOTAL PROTEIN (BEAKER) (test code = 4.2 gm/dL 6.0-8.3 L 770) ALBUMIN (BEAKER) (test code = 1145) 2.1 g/dL 3.5-5.0 L BILIRUBIN TOTAL (BEAKER) (test code 4.3 mg/dL 0.2-1.2 H = 377) BILIRUBIN DIRECT (BEAKER) (test 3.7 mg/dL 0.1-0.5 H code = 706) ALKALINE PHOSPHATASE (BEAKER) (test 48 U/L 40-150 code = 346) AST (SGOT) (BEAKER) (test code = 33 U/L 5-34 353) ALT (SGPT) (BEAKER) (test code = 42 U/L 6-55 347) Specimen slightly ictericCBC (HEMOGRAM ONLY)2018-01-22 04:18:00 Test Item Value Reference Range Interpretation Comments WHITE BLOOD CELL COUNT (BEAKER) 14.2 K/ L 3.5-10.5 H (test code = 775) RED BLOOD CELL COUNT (BEAKER) 2.34 M/ L 4.63-6.08 L (test code = 761) HEMOGLOBIN (BEAKER) (test code = 7.3 GM/DL 13.7-17.5 L 410) HEMATOCRIT (BEAKER) (test code = 21.6 % 40.1-51.0 L 411) MEAN CORPUSCULAR VOLUME (BEAKER) 92.3 fL 79.0-92.2 H (test code = 753) MEAN CORPUSCULAR HEMOGLOBIN 31.2 pg 25.7-32.2 (BEAKER) (test code = 751) MEAN CORPUSCULAR HEMOGLOBIN CONC 33.8 GM/DL 32.3-36.5 (BEAKER) (test code = 752) RED CELL DISTRIBUTION WIDTH 20.3 % 11.6-14.4 H (BEAKER) (test code = 412) PLATELET COUNT (BEAKER) (test code 78 K/CU MM 150-450 L = 756) MEAN PLATELET VOLUME (BEAKER) 11.0 fL 9.4-12.4 (test code = 754) NUCLEATED RED BLOOD CELLS (BEAKER) 0 /100 WBC 0-0 (test code = 413) [id number] 04:07:00 Test Item Value Reference Range Interpretation Comments PARTIAL THROMBOPLASTIN TIME 80.2 seconds 22.5-36.0 H (BEAKER) (test code = 760) BLOOD GAS, [id number] 04:06:00 Test Item Value Reference Range Interpretation Comments PH ARTERIAL (BEAKER) (test code = 7.44 7.35-7.45 383) PCO2 ARTERIAL (BEAKER) (test code 40 mmHg 35-45 = 384) PO2 ARTERIAL (BEAKER) (test code = 128 mmHg 80-90 H 385) O2 SATURATION ARTERIAL (BEAKER) 98.7 % 96.0-97.0 H (test code = 386) HCO3 ARTERIAL (BEAKER) (test code 26 mmol/L 21-29 = 388) BASE EXCESS ARTERIAL (BEAKER) 2.0 mmol/L -2.0-3.0 (test code = 387) PATIENT TEMPERATURE (BEAKER) (test 37.0 C code = 1818) FIO2 (BEAKER) (test code = 1819) 40.0 % RAD, CHEST, 1 VIEW, NON [id number] 03:32:00Reason for exam:->ptxShould this be performed at [...] MDReport Verified Date/Time: 01/22/2018 03:32:38 Reading Location: [facility] B1 C013Y CT Body Reading Room POCT-GLUCOSE [id number] 00:43:00 Test Item Value Reference Range Interpretation Comments POC-GLUCOSE METER 102 mg/dL 70-110 TESTED AT [place] [address] ([facility]) (test code = [facility] Humberto [facility] 1538) [address] [id number] 17:31:00 Test Item Value Reference Range Interpretation Comments PARTIAL THROMBOPLASTIN TIME 65.0 seconds 22.5-36.0 H ([facility]) (test code = 760) POCT-GLUCOSE [id number] 17:24:00 Test Item Value Reference Range Interpretation Comments POC-GLUCOSE METER 171 mg/dL 70-110 H TESTED AT [place] [address] ([facility]) (test code = FOSTER Paul [facility] 1538) [address] POCT-GLUCOSE [id number] 13:01:00 Test Item Value Reference Range Interpretation Comments POC-GLUCOSE METER 144 mg/dL 70-110 H TESTED AT [place] [address] ([facility]) (test code = MARIA [employer] [facility] 1538) [address] [id number] 11:12:00 Test Item Value Reference Range Interpretation Comments PARTIAL THROMBOPLASTIN TIME 67.9 seconds 22.5-36.0 H ([facility]) (test code = 760) RAD, CHEST, 1 VIEW, NON [id number] 08:01:00Reason for exam:->ptxShould this be performed at [...] left pleural effusion is present. Signed: Dung Grandaeport Verified Date/Time: 01/21/2018 08:01:07 Reading Location: [facility] Radiology Reading Room POCT-GLUCOSE [id number] 06:50:00 Test Item Value Reference Range Interpretation Comments POC-GLUCOSE METER 149 mg/dL 70-110 H TESTED AT [facility] 6720 (BEAKER) (test code = [place] 1538) [id number] CBC (HEMOGRAM ONLY)2018-01-21 04:20:00 Test Item Value Reference Range Interpretation Comments WHITE BLOOD CELL COUNT (BEAKER) 16.6 K/ L 3.5-10.5 H (test code = 775) RED BLOOD CELL COUNT (BEAKER) 2.13 M/ L 4.63-6.08 L (test code = 761) HEMOGLOBIN (BEAKER) (test code = 6.8 GM/DL 13.7-17.5 L 410) HEMATOCRIT (BEAKER) (test code = 20.2 % 40.1-51.0 L 411) MEAN CORPUSCULAR VOLUME (BEAKER) 94.8 fL 79.0-92.2 H (test code = 753) MEAN CORPUSCULAR HEMOGLOBIN 31.9 pg 25.7-32.2 (BEAKER) (test code = 751) MEAN CORPUSCULAR HEMOGLOBIN CONC 33.7 GM/DL 32.3-36.5 (BEAKER) (test code = 752) RED CELL DISTRIBUTION WIDTH 19.5 % 11.6-14.4 H (BEAKER) (test code = 412) PLATELET COUNT (BEAKER) (test code 88 K/CU MM 150-450 L = 756) MEAN PLATELET VOLUME (BEAKER) 10.6 fL 9.4-12.4 (test code = 754) NUCLEATED RED BLOOD CELLS (BEAKER) 0 /100 WBC 0-0 (test code = 413) [id number] 04:03:00 Test Item Value Reference Range Interpretation Comments PARTIAL THROMBOPLASTIN TIME 51.2 seconds 22.5-36.0 H (BEAKER) (test code = 760) BASIC METABOLIC [id number] 04:01:00 Test Item Value Reference Range Interpretation Comments SODIUM (BEAKER) 137 meq/L 136-145 (test code = 381) POTASSIUM (BEAKER) 3.8 meq/L 3.5-5.1 (test code = 379) CHLORIDE (BEAKER) 99 meq/L 98-107 (test code = 382) CO2 (BEAKER) (test 28 meq/L 22-29 code = 355) BLOOD UREA NITROGEN 50 mg/dL 7-21 H (BEAKER) (test code = 354) CREATININE (BEAKER) 3.75 mg/dL 0.57-1.25 H (test code = 358) GLUCOSE RANDOM 90 mg/dL 70-105 (BEAKER) (test code = 652) CALCIUM (BEAKER) 7.9 mg/dL 8.4-10.2 L (test code = 697) EGFR (BEAKER) (test 20 mL/min/1.73 ESTIMA JAYLA GFR IS code = 1092) sq m NOT ACCURATE CREATININE CLEARANCE IN PREDICTING GLOMERULAR FILTRATION RATE . ESTIMATED GFR I S NOT APPLICABLE FOR DIALYSIS PATIEN TS. Specimen moderately [id number] 03:59:00 Test Item Value Reference Range Interpretation Comments MAGNESIUM (BEAKER) (test code = 2.0 mg/dL 1.6-2.6 627) HEPATIC FUNCTION [id number] 03:59:00 Test Item Value Reference Range Interpretation Comments TOTAL PROTEIN (BEAKER) (test code = 4.5 gm/dL 6.0-8.3 L 770) ALBUMIN (BEAKER) (test code = 1145) 2.2 g/dL 3.5-5.0 L BILIRUBIN TOTAL (BEAKER) (test code 6.0 mg/dL 0.2-1.2 H = 377) BILIRUBIN DIRECT (BEAKER) (test 5.1 mg/dL 0.1-0.5 H code = 706) ALKALINE PHOSPHATASE (BEAKER) (test 48 U/L 40-150 code = 346) AST (SGOT) (BEAKER) (test code = 32 U/L 5-34 353) ALT (SGPT) (BEAKER) (test code = 51 U/L 6-55 347) Specimen moderately ictericVANCOMYCIN LEVEL, [id number] 03:57:00 Test Item Value Reference Range Interpretation Comments VANCOMYCIN RANDOM (BEAKER) (test 18.3 ug/mL code = 523) Reference Range: No NormalsOXYGEN SATURATION, [id number] 03:32:00 Test Item Value Reference Range Interpretation Comments O2 SATURATION (MEASURED) (BEAKER) 86.3 % (test code = 1455) BLOOD GAS, [id number] 03:30:00 Test Item Value Reference Range Interpretation Comments PH ARTERIAL (BEAKER) (test code = 7.50 7.35-7.45 H 383) PCO2 ARTERIAL (BEAKER) (test code 38 mmHg 35-45 = 384) PO2 ARTERIAL (BEAKER) (test code = 142 mmHg 80-90 H 385) O2 SATURATION ARTERIAL (BEAKER) 99.0 % 96.0-97.0 H (test code = 386) HCO3 ARTERIAL (BEAKER) (test code 29 mmol/L 21-29 = 388) BASE EXCESS ARTERIAL (BEAKER) 5.4 mmol/L -2.0-3.0 H (test code = 387) PATIENT TEMPERATURE (BEAKER) (test 37.5 C code = 1818) FIO2 (BEAKER) (test code = 1819) 40.0 % POCT-GLUCOSE [id number] 23:43:00 Test Item Value Reference Range Interpretation Comments POC-GLUCOSE METER 143 mg/dL 70-110 H TESTED AT [place] [address] ([facility]) (test code = [facility] 1538) [address] BLOOD [id number] 18:00:00 Test Item Value Reference Range Interpretation Comments CULTURE (BEAKER) (test No growth in 5 days code = 1095) BLOOD [id number] 18:00:00 Test Item Value Reference Range Interpretation Comments CULTURE (BEAKER) (test No growth in 5 days code = 1095) POCT-GLUCOSE [id number] 16:32:00 Test Item Value Reference Range Interpretation Comments POC-GLUCOSE METER 185 mg/dL 70-110 H TESTED AT [facility] 6720 ([facility]) (test code = [facility] 1538) [address] MISCELLANEOUS LAB [id number] 15:04:00 Test Item Value Reference Range Interpretation Comments SCAN RESULT (test code = 9081960) Result comments: NOT DETECTED Panel is negative for [employer] BCID-detectable organisms. Please refer to traditional culture and sensitivity results as they become available. Other organisms and resistance markers not contained in this PCR panel cannot be excluded and follow-up of traditional culture results is required. This sample was tested at the [facility] Clinical Microbiology Laboratory using the [employer] Film[employer] Blood Culture ID Panel. This test is FDA cleared for in vitro diagnostic use and hasbeen verified and approved by the [facility] Clinical Microbiology laboratory for clinical use. ReferenceRange: Not DetectedPOCT- GLUCOSE [id number] 12:25:00 Test Item Value Reference Range Interpretation Comments POC-GLUCOSE METER 116 mg/dL 70-110 H TESTED AT [place] [address] ([facility]) (test code = FOSTER Paul [facility] 1538) [address] RAD, CHEST, 1 VIEW, NON [id number] 06:38:00Reason for exam:->pl effusionShould this be performed [...] MDReport Verified Date/Time: 01/20/2018 06:38:33 Reading Location: [address] Body Reading Room POCT-GLUCOSE [id number] 05:54:00 Test Item Value Reference Range Interpretation Comments POC-GLUCOSE METER 231 mg/dL 70-110 H TESTED AT [facility] 67 ([facility] (test code = FOSTER Paul [facility] 1538) [address] VANCOMYCIN LEVEL, [id number] 04:23:00 Test Item Value Reference Range Interpretation Comments VANCOMYCIN RANDOM ([facility]) (test 25.8 ug/mL code = 523) Reference Range: No [id number] 04:17:00 Test Item Value Reference Range Interpretation Comments MAGNESIUM (BEAKER) (test code = 2.0 mg/dL 1.6-2.6 627) HEPATIC FUNCTION [id number] 04:17:00 Test Item Value Reference Range Interpretation Comments TOTAL PROTEIN (BEAKER) (test code = 4.8 gm/dL 6.0-8.3 L 770) ALBUMIN (BEAKER) (test code = 1145) 2.3 g/dL 3.5-5.0 L BILIRUBIN TOTAL (BEAKER) (test code 7.1 mg/dL 0.2-1.2 H = 377) BILIRUBIN DIRECT (BEAKER) (test 6.0 mg/dL 0.1-0.5 H code = 706) ALKALINE PHOSPHATASE (BEAKER) (test 53 U/L 40-150 code = 346) AST (SGOT) (BEAKER) (test code = 27 U/L 5-34 353) ALT (SGPT) (BEAKER) (test code = 65 U/L 6-55 H 347) Specimen moderately ictericBASIC METABOLIC [id number] 04:17:00 Test Item Value Reference Range Interpretation Comments SODIUM (BEAKER) 130 meq/L 136-145 L (test code = 381) POTASSIUM (BEAKER) 4.9 meq/L 3.5-5.1 (test code = 379) CHLORIDE (BEAKER) 94 meq/L 98-107 L (test code = 382) CO2 (BEAKER) (test 23 meq/L 22-29 code = 355) BLOOD UREA NITROGEN 76 mg/dL 7-21 H (BEAKER) (test code = 354) CREATININE (BEAKER) 4.93 mg/dL 0.57-1.25 H (test code = 358) GLUCOSE RANDOM 203 mg/dL 70-105 H (BEAKER) (test code = 652) CALCIUM (BEAKER) 7.9 mg/dL 8.4-10.2 L (test code = 697) EGFR (BEAKER) (test 15 mL/min/1.73 ESTIMA JAYLA GFR IS code = 1092) sq m NOT ACCURATE CREATININE CLEARANCE IN PREDICTING GLOMERULAR FILTRATION RATE . ESTIMATED GFR I S NOT APPLICABLE FOR DIALYSIS PATIEN TS. Specimen moderately [id number] 04:05:00 Test Item Value Reference Range Interpretation Comments PARTIAL THROMBOPLASTIN TIME 69.7 seconds 22.5-36.0 H (BEAKER) (test code = 760) CBC W/PLT COUNT & AUTO [id number] 03:49:00 Test Item Value Reference Range Interpretation Comments WHITE BLOOD CELL COUNT (BEAKER) 16.1 K/ L 3.5-10.5 H (test code = 775) RED BLOOD CELL COUNT (BEAKER) 2.30 M/ L 4.63-6.08 L (test code = 761) HEMOGLOBIN (BEAKER) (test code = 7.4 GM/DL 13.7-17.5 L 410) HEMATOCRIT (BEAKER) (test code = 22.2 % 40.1-51.0 L 411) MEAN CORPUSCULAR VOLUME (BEAKER) 96.5 fL 79.0-92.2 H (test code = 753) MEAN CORPUSCULAR HEMOGLOBIN 32.2 pg 25.7-32.2 (BEAKER) (test code = 751) MEAN CORPUSCULAR HEMOGLOBIN CONC 33.3 GM/DL 32.3-36.5 (BEAKER) (test code = 752) RED CELL DISTRIBUTION WIDTH 19.2 % 11.6-14.4 H (BEAKER) (test code = 412) PLATELET COUNT (BEAKER) (test code 71 K/CU MM 150-450 L = 756) MEAN PLATELET VOLUME (BEAKER) 10.8 fL 9.4-12.4 (test code = 754) NUCLEATED RED BLOOD CELLS (BEAKER) 1 /100 WBC 0-0 H (test code = 413) NEUTROPHILS RELATIVE PERCENT 90 % (BEAKER) (test code = 429) LYMPHOCYTES RELATIVE PERCENT 2 % (BEAKER) (test code = 430) MONOCYTES RELATIVE PERCENT 5 % (BEAKER) (test code = 431) EOSINOPHILS RELATIVE PERCENT 0 % (BEAKER) (test code = 432) BASOPHILS RELATIVE PERCENT 0 % (BEAKER) (test code = 437) NEUTROPHILS ABSOLUTE COUNT 14.52 K/ L 1.78-5.38 H (BEAKER) (test code = 670) LYMPHOCYTES ABSOLUTE COUNT 0.33 K/ L 1.32-3.57 L (BEAKER) (test code = 414) MONOCYTES ABSOLUTE COUNT (BEAKER) 0.86 K/ L 0.30-0.82 H (test code = 415) EOSINOPHILS ABSOLUTE COUNT 0.00 K/ L 0.04-0.54 L (BEAKER) (test code = 416) BASOPHILS ABSOLUTE COUNT (BEAKER) 0.01 K/ L 0.01-0.08 (test code = 417) IMMATURE GRANULOCYTES-RELATIVE 3 % 0-1 H PERCENT (BEAKER) (test code = 2801) OXYGEN SATURATION, [id number] 03:48:00 Test Item Value Reference Range Interpretation Comments O2 SATURATION (MEASURED) (AKER) 84.1 % (test code = 1455) POCT-GLUCOSE [id number] 23:14:00 Test Item Value Reference Range Interpretation Comments POC-GLUCOSE METER 248 mg/dL 70-110 H TESTED AT [facility] 67 ([facility]) [facility] 1538) [address] POCT-GLUCOSE [id number] 18:56:00 Test Item Value Reference Range Interpretation Comments POC-GLUCOSE METER 213 mg/dL 70-110 H TESTED AT [place] [address] ([facility]) [facility] = [facility] 1538) [address] POCT-GLUCOSE [id number] 14:06:00 Test Item Value Reference Range Interpretation Comments POC-GLUCOSE METER 210 mg/dL 70-110 H TESTED AT [facility] 67 ([facility]) (test code = [facility] Humberto [facility] 1538) [address] SPUTUM CULTURE + GRAM [id number] 13:45:00 Test Item Value Reference Range Interpretation Comments CULTURE (BEAKER) 4+ Normal respiratory (test code = 1095) pete present GRAM STAIN RESULT 4+ WBCs (BEAKER) (test code = 1123) GRAM STAIN RESULT 0-5 epithelial cells (BEAKER) (test code = 69666) GRAM STAIN RESULT 3+ gram negative rods (BEAKER) (test code = 30266) GRAM STAIN RESULT 2+ gram positive cocci (BEAKER) (test code = in pairs and clusters 261036) [id number] 12:37:00 Test Item Value Reference Range Interpretation Comments PARTIAL THROMBOPLASTIN TIME 74.3 seconds 22.5-36.0 H (BEAKER) (test code = 760) CBC W/PLT COUNT & AUTO [id number] 10:52:00 Test Item Value Reference Range Interpretation Comments WHITE BLOOD CELL COUNT (BEAKER) 17.8 K/ L 3.5-10.5 H (test code = 775) RED BLOOD CELL COUNT (BEAKER) 2.54 M/ L 4.63-6.08 L (test code = 761) HEMOGLOBIN (BEAKER) (test code = 8.0 GM/DL 13.7-17.5 L 410) HEMATOCRIT (BEAKER) (test code = 24.6 % 40.1-51.0 L 411) MEAN CORPUSCULAR VOLUME (BEAKER) 96.9 fL 79.0-92.2 H (test code = 753) MEAN CORPUSCULAR HEMOGLOBIN 31.5 pg 25.7-32.2 (BEAKER) (test code = 751) MEAN CORPUSCULAR HEMOGLOBIN CONC 32.5 GM/DL 32.3-36.5 (BEAKER) (test code = 752) RED CELL DISTRIBUTION WIDTH 19.5 % 11.6-14.4 H (BEAKER) (test code = 412) PLATELET COUNT (BEAKER) (test code 61 K/CU MM 150-450 L = 756) MEAN PLATELET VOLUME (BEAKER) 10.8 fL 9.4-12.4 (test code = 754) NUCLEATED RED BLOOD CELLS (BEAKER) 2 /100 WBC 0-0 H (test code = 413) VANCOMYCIN LEVEL, [id number] 05:41:00 Test Item Value Reference Range Interpretation Comments VANCOMYCIN RANDOM (BEAKER) (test 27.9 ug/mL code = 523) Reference Range: No NormalsBASIC METABOLIC [id number] 05:39:00 Test Item Value Reference Range Interpretation Comments SODIUM (BEAKER) 134 meq/L 136-145 L (test code = 381) POTASSIUM (BEAKER) 4.5 meq/L 3.5-5.1 (test code = 379) CHLORIDE (BEAKER) 98 meq/L 98-107 (test code = 382) CO2 (BEAKER) (test 26 meq/L 22-29 code = 355) BLOOD UREA NITROGEN 41 mg/dL 7-21 H (BEAKER) (test code = 354) CREATININE (BEAKER) 3.08 mg/dL 0.57-1.25 H (test code = 358) GLUCOSE RANDOM 192 mg/dL 70-105 H (BEAKER) (test code = 652) CALCIUM (BEAKER) 8.0 mg/dL 8.4-10.2 L (test code = 697) EGFR (BEAKER) (test 25 mL/min/1.73 ESTIMA JAYLA GFR IS code = 1092) sq m NOT ACCURATE CREATININE CLEARANCE IN PREDICTING GLOMERULAR FILTRATION RATE . ESTIMATED GFR I S NOT APPLICABLE FOR DIALYSIS PATIEN TS. Specimen moderately [id number] 05:36:00 Test Item Value Reference Range Interpretation Comments MAGNESIUM (BEAKER) (test code = 2.0 mg/dL 1.6-2.6 627) [id number] 05:36:00 Test Item Value Reference Range Interpretation Comments PHOSPHORUS (BEAKER) (test code = 3.9 mg/dL 2.3-4.7 604) HEPATIC FUNCTION [id number] 05:36:00 Test Item Value Reference Range Interpretation Comments TOTAL PROTEIN (BEAKER) (test code = 4.8 gm/dL 6.0-8.3 L 770) ALBUMIN (BEAKER) (test code = 1145) 2.5 g/dL 3.5-5.0 L BILIRUBIN TOTAL (BEAKER) (test code 7.7 mg/dL 0.2-1.2 H = 377) BILIRUBIN DIRECT (BEAKER) (test 6.3 mg/dL 0.1-0.5 H code = 706) ALKALINE PHOSPHATASE (BEAKER) (test 57 U/L 40-150 code = 346) AST (SGOT) (BEAKER) (test code = 43 U/L 5-34 H 353) ALT (SGPT) (BEAKER) (test code = 106 U/L 6-55 H 347) Specimen moderately ictericOXYGEN SATURATION, [id number] 05:33:00 Test Item Value Reference Range Interpretation Comments O2 SATURATION (MEASURED) (BEAKER) 87.0 % (test code = 1455) CBC (HEMOGRAM ONLY)[id number] 05:25:00 Test Item Value Reference Range Interpretation Comments WHITE BLOOD CELL COUNT (BEAKER) 17.8 K/ L 3.5-10.5 H (test code = 775) RED BLOOD CELL COUNT (BEAKER) 2.54 M/ L 4.63-6.08 L (test code = 761) HEMOGLOBIN (BEAKER) (test code = 8.0 GM/DL 13.7-17.5 L 410) HEMATOCRIT (BEAKER) (test code = 24.6 % 40.1-51.0 L 411) MEAN CORPUSCULAR VOLUME (BEAKER) 96.9 fL 79.0-92.2 H (test code = 753) MEAN CORPUSCULAR HEMOGLOBIN 31.5 pg 25.7-32.2 (BEAKER) (test code = 751) MEAN CORPUSCULAR HEMOGLOBIN CONC 32.5 GM/DL 32.3-36.5 (BEAKER) (test code = 752) RED CELL DISTRIBUTION WIDTH 19.5 % 11.6-14.4 H (BEAKER) (test code = 412) PLATELET COUNT (BEAKER) (test code 61 K/CU MM 150-450 L = 756) MEAN PLATELET VOLUME (BEAKER) 10.8 fL 9.4-12.4 (test code = 754) NUCLEATED RED BLOOD CELLS (BEAKER) 2 /100 WBC 0-0 H (test code = 413) [id number] 05:24:00 Test Item Value Reference Range Interpretation Comments PARTIAL THROMBOPLASTIN TIME 68.1 seconds 22.5-36.0 H (BEAKER) (test code = 760) RAD, CHEST, 1 VIEW, NON [id number] 04:41:00Reason for exam:->pl effusionShould this be performed at the bedside?->YesFINAL REPORT CLINICAL INDICATION: Support lines. Comparison: 01/18/2018 The ca rdiomediastinal contours are stable. Central pulmonary vascular congestion and bilateral parenchymalopacities are unchanged. There is no pneumothorax. Support lines are stable. Signed: Kellen Parra MDReport Verified Date/Time: 01/19/2018 04:41:27 Reading Location: [address] Reading Room APTT 2018-01-19 00:38:00 Test Item Value Reference Range Interpretation Comments PARTIAL THROMBOPLASTIN TIME 45.5 seconds 22.5-36.0 H (BEAKER) (test code = 760) POCT-GLUCOSE [id number] 00:21:00 Test Item Value Reference Range Interpretation Comments POC-GLUCOSE METER 189 mg/dL 70-110 H TESTED AT [facility] 67[address] ([facility]) (test code = FOSTER Paul [place] 1538) [address] POCT-GLUCOSE [id number] 23:34:00 Test Item Value Reference Range Interpretation Comments POC-GLUCOSE METER 162 mg/dL 70-110 H TESTED AT [facility] 67[address] ([facility]) (test code = FOSTER Paul [facility] 1538) [address] POCT-GLUCOSE [id number] 18:09:00 Test Item Value Reference Range Interpretation Comments POC-GLUCOSE METER 172 mg/dL 70-110 H TESTED AT [facility] 6720 ([facility]) (test code = FOSTER Paul [facility] 1538) [address] RAD, ABDOMEN/KUB, 1 VIEW [id number] 17:36:00Reason for exam:->ileusShould this be performed at the bedside?->YesFINAL REPORT Comparison: 01/17/2018 TECHNIQUE: Frontal image of the abdomen FINDINGS: There is a nonspecific bowel gas pattern. Tip of nasogastric projects in the distal stomach. No gross free intraperitoneal air. No acute skeletal abnormality. Signed: Kyle Rome MDReport Verified Date/Time: 01/18/2018 17:36:02 Reading Location: [address] Transitional Reading Room [id number] 17:10:00 Test Item Value Reference Range Interpretation Comments PARTIAL THROMBOPLASTIN TIME 27.8 seconds 22.5-36.0 ([facility]) (test code = 760) Prior to initiating heparinPOCT-GLUCOSE [id number] 15:22:00 Test Item Value Reference Range Interpretation Comments POC-GLUCOSE METER 126 mg/dL 70-110 H TESTED AT [facility] 67[address] ([facility]) (test code = FOSTER Paul [facility] 1538) [address] [id number] 13:02:00 Test Item Value Reference Range Interpretation Comments PHOSPHORUS (BEAKER) (test code = 3.8 mg/dL 2.3-4.7 604) BASIC METABOLIC [id number] 13:02:00 Test Item Value Reference Range Interpretation Comments SODIUM (BEAKER) 134 meq/L 136-145 L (test code = 381) POTASSIUM (BEAKER) 4.6 meq/L 3.5-5.1 (test code = 379) CHLORIDE (BEAKER) 100 meq/L 98-107 (test code = 382) CO2 (BEAKER) (test 22 meq/L 22-29 code = 355) BLOOD UREA NITROGEN 29 mg/dL 7-21 H (BEAKER) (test code = 354) CREATININE (BEAKER) 2.37 mg/dL 0.57-1.25 H (test code = 358) GLUCOSE RANDOM 142 mg/dL 70-105 H (BEAKER) (test code = 652) CALCIUM (BEAKER) 8.0 mg/dL 8.4-10.2 L (test code = 697) EGFR (BEAKER) (test 34 mL/min/1.73 ESTIMA JAYLA GFR IS code = 1092) sq m NOT ACCURATE CREATININE CLEARANCE IN PREDICTING GLOMERULAR FILTRATION RATE . ESTIMATED GFR I S NOT APPLICABLE FOR DIALYSIS PATIEN TS. Specimen moderately ictericPOCT-GLUCOSE [id number] 12:11:00 Test Item Value Reference Range Interpretation Comments POC-GLUCOSE METER 113 mg/dL 70-110 H TESTED AT [facility] 6720 (BEAKER) (test code = [place]ER [place] 1538) [address] CBC W/PLT COUNT & AUTO [id number] 12:03:00 Test Item Value Reference Range Interpretation Comments WHITE BLOOD CELL COUNT (BEAKER) 15.4 K/ L 3.5-10.5 H (test code = 775) RED BLOOD CELL COUNT (BEAKER) 2.63 M/ L 4.63-6.08 L (test code = 761) HEMOGLOBIN (BEAKER) (test code = 8.4 GM/DL 13.7-17.5 L 410) HEMATOCRIT (BEAKER) (test code = 25.8 % 40.1-51.0 L 411) MEAN CORPUSCULAR VOLUME (BEAKER) 98.1 fL 79.0-92.2 H (test code = 753) MEAN CORPUSCULAR HEMOGLOBIN 31.9 pg 25.7-32.2 (BEAKER) (test code = 751) MEAN CORPUSCULAR HEMOGLOBIN CONC 32.6 GM/DL 32.3-36.5 (BEAKER) (test code = 752) RED CELL DISTRIBUTION WIDTH 19.5 % 11.6-14.4 H (BEAKER) (test code = 412) PLATELET COUNT (BEAKER) (test code 65 K/CU MM 150-450 L = 756) MEAN PLATELET VOLUME (BEAKER) 10.9 fL 9.4-12.4 (test code = 754) NUCLEATED RED BLOOD CELLS (BEAKER) 7 /100 WBC 0-0 H (test code = 413) RAD, CHEST, 1 VIEW, NON [id number] 09:44:00Reason for exam:->pl effusionShould this be performed [...] MDReport Verified Date/Time: 01/18/2018 09:44:26 Reading Location: [address] Transitional Reading Room SPUTUM CULTURE + GRAM [id number] 08:09:00 Test Item Value Reference Range Interpretation Comments CULTURE (BEAKER) 3+ Normal respiratory (test code = 1095) pete present GRAM STAIN RESULT 4+ WBCs (BEAKER) (test code = 1123) GRAM STAIN RESULT 0-5 epithelial cells (BEAKER) (test code = 76486) GRAM STAIN RESULT No organisms seen (BEAKER) (test code = 63903) POCT-GLUCOSE [id number] 07:52:00 Test Item Value Reference Range Interpretation Comments POC-GLUCOSE METER 146 mg/dL 70-110 H TESTED AT [facility] 67[address] (BEAKER) (test code = [facility] 1538) [address] POCT-GLUCOSE [id number] 06:30:00 Test Item Value Reference Range Interpretation Comments POC-GLUCOSE METER 135 mg/dL 70-110 H [facility] (BEAKER) (test code = [facility] 1538) [address] POCT-GLUCOSE [id number] 06:30:00 Test Item Value Reference Range Interpretation Comments POC-GLUCOSE METER 130 mg/dL 70-110 H TESTED AT [facility] 6720 (BEAKER) (test code = FOSTER [place] 1538) [address] [id number] 03:56:00 Test Item Value Reference Range Interpretation Comments PHOSPHORUS (BEAKER) (test code = 3.1 mg/dL 2.3-4.7 604) [id number] 03:56:00 Test Item Value Reference Range Interpretation Comments MAGNESIUM (BEAKER) (test code = 2.0 mg/dL 1.6-2.6 627) HEPATIC FUNCTION [id number] 03:56:00 Test Item Value Reference Range Interpretation Comments TOTAL PROTEIN (BEAKER) (test code = 4.8 gm/dL 6.0-8.3 L 770) ALBUMIN (BEAKER) (test code = 1145) 2.5 g/dL 3.5-5.0 L BILIRUBIN TOTAL (BEAKER) (test code 8.5 mg/dL 0.2-1.2 H = 377) BILIRUBIN DIRECT (BEAKER) (test 7.1 mg/dL 0.1-0.5 H code = 706) ALKALINE PHOSPHATASE (BEAKER) (test 57 U/L 40-150 code = 346) AST (SGOT) (BEAKER) (test code = 45 U/L 5-34 H 353) ALT (SGPT) (BEAKER) (test code = 155 U/L 6-55 H 347) Specimen moderately ictericVANCOMYCIN LEVEL, [id number] 03:53:00 Test Item Value Reference Range Interpretation Comments VANCOMYCIN RANDOM (BEAKER) (test 18.0 ug/mL code = 523) Reference Range: No [id number] 03:48:00 Test Item Value Reference Range Interpretation Comments CALCIUM (BEAKER) (test code = 697) 8.1 mg/dL 8.4-10.2 L CALCIUM, [id number] 03:34:00 Test Item Value Reference Range Interpretation Comments CALCIUM IONIZED (BEAKER) (test 1.06 mmol/L 1.12-1.27 L code = 698) PH, BLOOD (BEAKER) (test code = 7.38 1810) OXYGEN SATURATION, [id number] 03:33:00 Test Item Value Reference Range Interpretation Comments O2 SATURATION (MEASURED) ([facility]) 85.8 % (test code = 1455) POCT-GLUCOSE [id number] 03:26:00 Test Item Value Reference Range Interpretation Comments POC-GLUCOSE METER 144 mg/dL 70-110 H TESTED AT [place] [address] ([facility]) (test code = FOSTER Paul [facility] 1538) [address] POCT-GLUCOSE [id number] 03:26:00 Test Item Value Reference Range Interpretation Comments POC-GLUCOSE METER 163 mg/dL 70-110 H TESTED AT [place] [address] ([facility]) (test code = [facility] 1538) [address] POCT-GLUCOSE [id number] 01:04:00 Test Item Value Reference Range Interpretation Comments POC-GLUCOSE METER 159 mg/dL 70-110 H TESTED AT [place] [address] ([facility]) (test code = [facility] 1538) [address] POCT-GLUCOSE [id number] 00:12:00 Test Item Value Reference Range Interpretation Comments POC-GLUCOSE METER 132 mg/dL 70-110 H TESTED AT [place] [address] ([facility]) (test code = [facility] 1538) [address] LACTIC ACID, ARTERIAL, WHOLE [id number] 23:54:00 Test Item Value Reference Range Interpretation Comments LACTATE BLOOD ARTERIAL (2) 0.7 mmol/L 0.5-2.2 ([facility]) (test code = 2874) Effective 01/04/2016: Units/Reference Range ChangeNew: 0.5-2.2 mmol/L Previous: 5-20 mg/dLSpecimen moderately ictericPOTASSIUM-STAT [id number] 23:30:00 Test Item Value Reference Range Interpretation Comments POTASSIUM (BEAKER) (test code = 4.0 meq/L 3.6-5.5 379) BLOOD GAS, [id number] 23:30:00 Test Item Value Reference Range Interpretation Comments PH ARTERIAL (BEAKER) (test code = 7.45 7.35-7.45 383) PCO2 ARTERIAL (BEAKER) (test code 42 mmHg 35-45 = 384) PO2 ARTERIAL (BEAKER) (test code = 95 mmHg 80-90 H 385) O2 SATURATION ARTERIAL (BEAKER) 97.5 % 96.0-97.0 H (test code = 386) HCO3 ARTERIAL (BEAKER) (test code 29 mmol/L 21-29 = 388) BASE EXCESS ARTERIAL (BEAKER) 4.3 mmol/L -2.0-3.0 H (test code = 387) PATIENT TEMPERATURE (BEAKER) (test 37.1 C code = 1818) FIO2 (BEAKER) (test code = 1819) 50.0 % SODIUM NA-STAT [id number] 23:30:00 Test Item Value Reference Range Interpretation Comments SODIUM (BEAKER) (test code = 381) 134 meq/L 135-148 L GLUCOSE-STAT [id number] 23:30:00 Test Item Value Reference Range Interpretation Comments GLUCOSE RANDOM (BEAKER) (test code 138 mg/dL 70-110 H = 652) HGB/HCT (H&H) - STAT [id number] 23:30:00 Test Item Value Reference Range Interpretation Comments HEMOGLOBIN (BEAKER) (test code = 9.0 g/dL 13.0-16.8 L 410) HEMATOCRIT (BEAKER) (test code = 26.0 % 40.0-50.0 L 411) CALCIUM, [id number] 23:30:00 Test Item Value Reference Range Interpretation Comments CALCIUM IONIZED (BEAKER) (test 1.04 mmol/L 1.12-1.27 L code = 698) PH, BLOOD (BEAKER) (test code = 7.48 1810) OXYGEN SATURATION, [id number] 23:28:00 Test Item Value Reference Range Interpretation Comments O2 SATURATION (MEASURED) (BEAKER) 82.0 % (test code = 1455) POCT-GLUCOSE [id number] 21:35:00 Test Item Value Reference Range Interpretation Comments POC-GLUCOSE METER 99 mg/dL 70-110 TESTED AT [facility] 6720 ([facility]) (test code = FOSTER Paul [facility] [address] 1538) POCT-GLUCOSE [id number] 21:35:00 Test Item Value Reference Range Interpretation Comments POC-GLUCOSE METER 111 mg/dL 70-110 H TESTED AT [facility] 6720 ([facility]) ([facility] = [facility] [place] [address]) [address] RAD, CHEST, 1 VIEW, NON [id number] 17:08:00Reason for exam:->LIJ placment CVCShould this be [...] [place] Verified Date/Time: 01/17/2018 17:08:24 Reading Location: [facility] Radiology Reading Room GLUCOSE-STAT [id number] 16:33:00 Test Item Value Reference Range Interpretation Comments GLUCOSE RANDOM (BEAKER) (test code 147 mg/dL 70-110 H = 652) POTASSIUM-STAT [id number] 16:32:00 Test Item Value Reference Range Interpretation Comments POTASSIUM (BEAKER) (test code = 4.7 meq/L 3.6-5.5 379) [id number] 15:03:00 Test Item Value Reference Range Interpretation Comments PROCALCITONIN (BEAKER) (test code 5.33 ng/mL <0.05 H = 3036) SEPSIS RISK (ng/mL)Low: 0.05-0.50Intermediate: 0.51-2.00High: >=2.01CT BRAIN WITHOUT IV CONTRAST - [id number] 13:50:00Reason for exam:->altered mental statusFINAL REPORT CT [...] should be excluded clinically. Signed: Dung Granda MDRort Verified Date/Time: 01/17/2018 13:50:42 Reading Location: [facility] Radiology Reading Room CALCIUM, [id number] 12:36:00 Test Item Value Reference Range Interpretation Comments CALCIUM IONIZED (BEAKER) (test 1.09 mmol/L 1.12-1.27 L code = 698) PH, BLOOD (BEAKER) (test code = 7.36 1810) GLUCOSE-STAT [id number] 12:36:00 Test Item Value Reference Range Interpretation Comments GLUCOSE RANDOM (BEAKER) (test code 147 mg/dL 70-110 H = 652) POTASSIUM-STAT [id number] 12:36:00 Test Item Value Reference Range Interpretation Comments POTASSIUM (BEAKER) (test code = 4.7 meq/L 3.6-5.5 379) RAD, ABDOMEN/KUB, 1 VIEW [id number] 08:42:00Reason for exam:->ileusShould this be performed at [...] MDReport Verified Date/Time: 01/17/2018 08:42:09 Reading Location: [facility] Radiology Reading Room CBC W/PLT COUNT & AUTO [id number] 08:18:00 Test Item Value Reference Range Interpretation Comments WHITE BLOOD CELL COUNT (BEAKER) 22.5 K/ L 3.5-10.5 H (test code = 775) RED BLOOD CELL COUNT (BEAKER) 2.87 M/ L 4.63-6.08 L (test code = 761) HEMOGLOBIN (BEAKER) (test code = 9.0 GM/DL 13.7-17.5 L 410) HEMATOCRIT (BEAKER) (test code = 27.4 % 40.1-51.0 L 411) MEAN CORPUSCULAR VOLUME (BEAKER) 95.5 fL 79.0-92.2 H (test code = 753) MEAN CORPUSCULAR HEMOGLOBIN 31.4 pg 25.7-32.2 (BEAKER) (test code = 751) MEAN CORPUSCULAR HEMOGLOBIN CONC 32.8 GM/DL 32.3-36.5 (BEAKER) (test code = 752) RED CELL DISTRIBUTION WIDTH 18.8 % 11.6-14.4 H (BEAKER) (test code = 412) PLATELET COUNT (BEAKER) (test code 63 K/CU MM 150-450 L = 756) MEAN PLATELET VOLUME (BEAKER) 11.1 fL 9.4-12.4 (test code = 754) NUCLEATED RED BLOOD CELLS (BEAKER) 6 /100 WBC 0-0 H (test code = 413) HEPARIN ASSAY - [id number] 08:07:00 Test Item Value Reference Range Interpretation Comments UNFRACTIONATED HEPARIN-ANTI 10A < u/ml 0.30-0.70 L (BEAKER) (test code = 1606) Recommendations for Monitoring Unfractionated Heparin Therapeutic Range: 0.3- 0.7 u/mL with continuous IV infusionPOCT-GLUCOSE [id number] 06:09:00 Test Item Value Reference Range Interpretation Comments POC-GLUCOSE METER 143 mg/dL 70-110 H TESTED AT [facility] 6720 (BEAKER) (test code = [place] 1538) [address] RAD, CHEST, 1 VIEW, NON [id number] 04:43:00Reason for exam:->acute respiratory insufficiencyShould this be [...] MDReport Verified Date/Time: 01/17/2018 04:43:34 Reading Location: [address] Body Reading Room OXYGEN SATURATION, [id number] 04:13:00 Test Item Value Reference Range Interpretation Comments O2 SATURATION (MEASURED) (BEAKER) 85.7 % (test code = 1455) [id number] 04:06:00 Test Item Value Reference Range Interpretation Comments PHOSPHORUS (BEAKER) (test code = 3.1 mg/dL 2.3-4.7 604) [id number] 04:06:00 Test Item Value Reference Range Interpretation Comments MAGNESIUM (BEAKER) (test code = 2.1 mg/dL 1.6-2.6 627) COMPREHENSIVE METABOLIC [id number] 04:06:00 Test Item Value Reference Range Interpretation Comments TOTAL PROTEIN 5.2 gm/dL 6.0-8.3 L (BEAKER) (test code = 770) ALBUMIN (BEAKER) 2.8 g/dL 3.5-5.0 L (test code = 1145) ALKALINE PHOSPHATASE 60 U/L 40-150 (BEAKER) (test code = 346) BILIRUBIN TOTAL 9.1 mg/dL 0.2-1.2 H (BEAKER) (test code = 377) SODIUM (BEAKER) (test 135 meq/L 136-145 L code = 381) POTASSIUM (BEAKER) 4.7 meq/L 3.5-5.1 (test code = 379) CHLORIDE (BEAKER) 102 meq/L 98-107 (test code = 382) CO2 (BEAKER) (test 24 meq/L 22-29 code = 355) BLOOD UREA NITROGEN 22 mg/dL 7-21 H (BEAKER) (test code = 354) CREATININE (BEAKER) 1.47 mg/dL 0.57-1.25 H (test code = 358) GLUCOSE RANDOM 144 mg/dL 70-105 H (BEAKER) (test code = 652) CALCIUM (BEAKER) 8.5 mg/dL 8.4-10.2 (test code = 697) AST (SGOT) (BEAKER) 64 U/L 5-34 H (test code = 353) ALT (SGPT) (BEAKER) 250 U/L 6-55 H (test code = 347) EGFR (BEAKER) (test 59 mL/min/1.73 ESTIMA JAYLA GFR IS code = 1092) sq m NOT ACCURATE CREATININE CLEARANCE IN PREDICTING GLOMERULAR FILTRATION RATE . ESTIMATED GFR I S NOT APPLICABLE FOR DIALYSIS PATIEN TS. Specimen moderately ictericHEPATIC FUNCTION [id number] 04:06:00 Test Item Value Reference Range Interpretation Comments TOTAL PROTEIN (BEAKER) (test code = 5.2 gm/dL 6.0-8.3 L 770) ALBUMIN (BEAKER) (test code = 1145) 2.8 g/dL 3.5-5.0 L BILIRUBIN TOTAL (BEAKER) (test code 9.1 mg/dL 0.2-1.2 H = 377) BILIRUBIN DIRECT (BEAKER) (test 7.4 mg/dL 0.1-0.5 H code = 706) ALKALINE PHOSPHATASE (BEAKER) (test 60 U/L 40-150 code = 346) AST (SGOT) (BEAKER) (test code = 64 U/L 5-34 H 353) ALT (SGPT) (BEAKER) (test code = 250 U/L 6-55 H 347) Specimen moderately ictericLACTIC ACID, ARTERIAL, WHOLE [id number] 03:59:00 Test Item Value Reference Range Interpretation Comments LACTATE BLOOD 0.5 mmol/L 0.5-2.2 Specimen sligh tly ARTERIAL (2) (BEAKER) hemoly zed (test code = 2874) Effective 01/04/2016: Units/Reference Range ChangeNew: 0.5-2.2 mmol/L Previous: 5-20 mg/dLSpecimen moderately ictericBLOOD GAS, [id number] 03:58:00 Test Item Value Reference Range Interpretation Comments PH ARTERIAL (BEAKER) (test code = 7.42 7.35-7.45 383) PCO2 ARTERIAL (BEAKER) (test code 40 mmHg 35-45 = 384) PO2 ARTERIAL (BEAKER) (test code = 131 mmHg 80-90 H 385) O2 SATURATION ARTERIAL (BEAKER) 98.8 % 96.0-97.0 H (test code = 386) HCO3 ARTERIAL (BEAKER) (test code 26 mmol/L 21-29 = 388) BASE EXCESS ARTERIAL (BEAKER) 0.8 mmol/L -2.0-3.0 (test code = 387) PATIENT TEMPERATURE (BEAKER) (test 35.6 C code = 1818) FIO2 (BEAKER) (test code = 1819) 40.0 % CALCIUM, [id number] 03:58:00 Test Item Value Reference Range Interpretation Comments CALCIUM IONIZED (BEAKER) (test 1.14 mmol/L 1.12-1.27 code = 698) PH, BLOOD (BEAKER) (test code = 7.41 1810) POCT-GLUCOSE [id number] 02:41:00 Test Item Value Reference Range Interpretation Comments POC-GLUCOSE METER 144 mg/dL 70-110 H TESTED AT [place] [address] ([facility]) (test code = [place] 1538) [address] POCT-GLUCOSE [id number] 00:30:00 Test Item Value Reference Range Interpretation Comments POC-GLUCOSE METER 171 mg/dL 70-110 H TESTED AT [place] [address] ([facility]) (test code = [place] 1538) [address] POTASSIUM-STAT [id number] 00:08:00 Test Item Value Reference Range Interpretation Comments POTASSIUM (BEAKER) (test code = 4.5 meq/L 3.6-5.5 379) POCT-GLUCOSE [id number] 23:30:00 Test Item Value Reference Range Interpretation Comments POC-GLUCOSE METER 159 mg/dL 70-110 H TESTED AT [place] [address] ([facility]) (test code = FOSTER Paul [facility] 1538) [address] POCT-GLUCOSE [id number] 21:08:00 Test Item Value Reference Range Interpretation Comments POC-GLUCOSE METER 194 mg/dL 70-110 H TESTED AT [place] [address] ([facility]) (test code = [facility] Humberto [facility] 1538) [address] POCT-GLUCOSE [id number] 21:08:00 Test Item Value Reference Range Interpretation Comments POC-GLUCOSE METER 230 mg/dL 70-110 H TESTED AT [place] [address] (BEAKER) (test code = [facility] [place]umberto [facility] 1538) [address] CALCIUM, [id number] 19:23:00 Test Item Value Reference Range Interpretation Comments CALCIUM IONIZED (BEAKER) (test 1.14 mmol/L 1.12-1.27 code = 698) PH, BLOOD (BEAKER) (test code = 7.36 1810) POTASSIUM-STAT [id number] 19:23:00 Test Item Value Reference Range Interpretation Comments POTASSIUM (BEAKER) (test code = 5.1 meq/L 3.6-5.5 379) [id number] 17:27:00 Test Item Value Reference Range Interpretation Comments PHOSPHORUS (BEAKER) (test code = 2.2 mg/dL 2.3-4.7 L 604) [id number] 17:27:00 Test Item Value Reference Range Interpretation Comments MAGNESIUM (BEAKER) (test code = 2.1 mg/dL 1.6-2.6 627) PH, [id number] 17:03:00 Test Item Value Reference Range Interpretation Comments PH ARTERIAL (BEAKER) (test code = 383) 7.39 7.35-7.45 POCT-GLUCOSE [id number] 16:43:00 Test Item Value Reference Range Interpretation Comments POC-GLUCOSE METER 95 mg/dL 70-110 TESTED AT [place] [address] ([facility]) (test code = [facility] Humberto [facility] [address]38) POCT-GLUCOSE [id number] 14:41:00 Test Item Value Reference Range Interpretation Comments POC-GLUCOSE METER 134 mg/dL 70-110 H TESTED AT [place] [address] ([facility]) (test code = [facility] 1538) [address] RAD, ABDOMEN/KUB, 1 VIEW [id number] 13:16:00Reason for exam:- >constipationShould this be performed [...] MDReport Verified Date/Time: 01/16/2018 13:16:27 Reading Location: [facility] Reading Room Electronically signed by: KAY WALTER on01/16/2018 01:16 PMCALCIUM, [id number] 12:38:00 Test Item Value Reference Range Interpretation Comments CALCIUM IONIZED ([facility]) (test 1.14 mmol/L 1.12-1.27 code = 698) PH, BLOOD ([facility]) (test code = 7.40 1810) POCT-GLUCOSE [id number] 12:29:00 Test Item Value Reference Range Interpretation Comments POC-GLUCOSE METER 127 mg/dL 70-110 H TESTED AT [place] [id number] ([facility]) (test code = FOSTER Paul [facility] 1538) [id number] POCT-GLUCOSE [id number] 10:34:00 Test Item Value Reference Range Interpretation Comments POC-GLUCOSE METER 130 mg/dL 70-110 H TESTED AT [place] [address] ([facility]) (test code = FOSTER Paul [facility] 1538) [id number] POCT-GLUCOSE [id number] 09:10:00 Test Item Value Reference Range Interpretation Comments POC-GLUCOSE METER 151 mg/dL 70-110 H TESTED AT [place] [address] ([facility]) (test code = FOSTER Paul [facility] 1538) [id number] HEPARIN ASSAY - [id number] 09:00:00 Test Item Value Reference Range Interpretation Comments UNFRACTIONATED HEPARIN-ANTI 10A < u/ml 0.30-0.70 L (BEAKER) (test code = 1606) Recommendations for Monitoring Unfractionated Heparin Therapeutic Range: 0.3- 0.7 u/mL with continuous IV infusionCBC W/PLT COUNT & AUTO DIFFERENTIAL 2018-01-16 08:55:00 Test Item Value Reference Range Interpretation Comments WHITE BLOOD CELL COUNT (BEAKER) 11.9 K/ L 3.5-10.5 H (test code = 775) RED BLOOD CELL COUNT (BEAKER) 2.64 M/ L 4.63-6.08 L (test code = 761) HEMOGLOBIN (BEAKER) (test code = 8.4 GM/DL 13.7-17.5 L 410) HEMATOCRIT (BEAKER) (test code = 25.2 % 40.1-51.0 L 411) MEAN CORPUSCULAR VOLUME (BEAKER) 95.5 fL 79.0-92.2 H (test code = 753) MEAN CORPUSCULAR HEMOGLOBIN 31.8 pg 25.7-32.2 (BEAKER) (test code = 751) MEAN CORPUSCULAR HEMOGLOBIN CONC 33.3 GM/DL 32.3-36.5 (BEAKER) (test code = 752) RED CELL DISTRIBUTION WIDTH 18.5 % 11.6-14.4 H (BEAKER) (test code = 412) PLATELET COUNT (BEAKER) (test code 45 K/CU MM 150-450 L = 756) MEAN PLATELET VOLUME (BEAKER) 11.2 fL 9.4-12.4 (test code = 754) NUCLEATED RED BLOOD CELLS (BEAKER) 9 /100 WBC 0-0 H (test code = 413) OXYGEN SATURATION, [id number] 08:30:00 Test Item Value Reference Range Interpretation Comments O2 SATURATION (MEASURED) (BEAKER) 87.1 % (test code = 1455) RAD, CHEST, 1 VIEW, NON [id number] 08:11:00Reason for exam:->acute respiratory insufficiencyShould this be performed at the bedside?->YesFINAL REPORT CLINICAL HISTORY: acute respiratory insufficiency TECHNIQUE: 1 view of the chest. COMPARISON: 01/15/2018 IMPRESSION: The [place]-Moni catheter has been removed. The supporting lines and tubes are otherwise unchanged. There is no pneumothorax. Mild bilateral perihilar lung opacities have decreased. The cardiomediastinal silhouette is magnified by technique with sternotomy wires. Signed: Lorna Slade Verified Date/Time: 01/16/2018 08:11:02 Reading Location: [facility] Reading Room POCT- GLUCOSE [id number] 06:43:00 Test Item Value Reference Range Interpretation Comments POC-GLUCOSE METER 107 mg/dL 70-110 TESTED AT [facility] 6720 ([facility]) (test code = [place] 1538) [address] U/S, ABDOMINAL, [id number] 05:25:00Abdomen limited area? Add comment if clarification [...] MDReport Verified Date/Time: 01/16/2018 05:25:06 Reading Location: [facility] B1 C013Y CT Body Reading Room IC ACID, ARTERIAL, WHOLE [id number] 04:06:00 Test Item Value Reference Range Interpretation Comments LACTATE BLOOD ARTERIAL (2) 0.6 mmol/L 0.5-2.2 (BEAKER) (test code = 2874) Effective 01/04/2016: Units/Reference Range ChangeNew: 0.5-2.2 mmol/L Previous: 5-20 mg/dLSpecimen moderately [id number] 04:00:00 Test Item Value Reference Range Interpretation Comments PHOSPHORUS (BEAKER) (test code = 2.2 mg/dL 2.3-4.7 L 604) [id number] 04:00:00 Test Item Value Reference Range Interpretation Comments MAGNESIUM (BEAKER) (test code = 2.0 mg/dL 1.6-2.6 627) [id number] 04:00:00 Test Item Value Reference Range Interpretation Comments CALCIUM (BEAKER) (test code = 697) 8.5 mg/dL 8.4-10.2 COMPREHENSIVE METABOLIC [id number] 04:00:00 Test Item Value Reference Range Interpretation Comments TOTAL PROTEIN 5.0 gm/dL 6.0-8.3 L (BEAKER) (test code = 770) ALBUMIN (BEAKER) 2.7 g/dL 3.5-5.0 L (test code = 1145) ALKALINE PHOSPHATASE 45 U/L 40-150 (BEAKER) (test code = 346) BILIRUBIN TOTAL 7.3 mg/dL 0.2-1.2 H (BEAKER) (test code = 377) SODIUM (BEAKER) (test 136 meq/L 136-145 code = 381) POTASSIUM (BEAKER) 4.3 meq/L 3.5-5.1 (test code = 379) CHLORIDE (BEAKER) 105 meq/L 98-107 (test code = 382) CO2 (BEAKER) (test 25 meq/L 22-29 code = 355) BLOOD UREA NITROGEN 24 mg/dL 7-21 H (BEAKER) (test code = 354) CREATININE (BEAKER) 1.44 mg/dL 0.57-1.25 H (test code = 358) GLUCOSE RANDOM 102 mg/dL 70-105 (BEAKER) (test code = 652) CALCIUM (BEAKER) 8.5 mg/dL 8.4-10.2 (test code = 697) AST (SGOT) (BEAKER) 107 U/L 5-34 H (test code = 353) ALT (SGPT) (BEAKER) 351 U/L 6-55 H (test code = 347) EGFR (BEAKER) (test 61 mL/min/1.73 ESTIMA JAYLA GFR IS code = 1092) sq m NOT ACCURATE CREATININE CLEARANCE IN PREDICTING GLOMERULAR FILTRATION RATE . ESTIMATED GFR I S NOT APPLICABLE FOR DIALYSIS PATIEN TS. Specimen moderately ictericHEPATIC FUNCTION [id number] 04:00:00 Test Item Value Reference Range Interpretation Comments TOTAL PROTEIN (BEAKER) (test code = 5.0 gm/dL 6.0-8.3 L 770) ALBUMIN (BEAKER) (test code = 1145) 2.7 g/dL 3.5-5.0 L BILIRUBIN TOTAL (BEAKER) (test code 7.3 mg/dL 0.2-1.2 H = 377) BILIRUBIN DIRECT (BEAKER) (test 6.0 mg/dL 0.1-0.5 H code = 706) ALKALINE PHOSPHATASE (BEAKER) (test 45 U/L 40-150 code = 346) AST (SGOT) (BEAKER) (test code = 107 U/L 5-34 H 353) ALT (SGPT) (BEAKER) (test code = 351 U/L 6-55 H 347) Specimen moderately ictericBLOOD GAS, [id number] 03:51:00 Test Item Value Reference Range Interpretation Comments PH ARTERIAL (BEAKER) (test code = 7.43 7.35-7.45 383) PCO2 ARTERIAL (BEAKER) (test code 41 mmHg 35-45 = 384) PO2 ARTERIAL (BEAKER) (test code = 158 mmHg 80-90 H 385) O2 SATURATION ARTERIAL (BEAKER) 99.1 % 96.0-97.0 H (test code = 386) HCO3 ARTERIAL (BEAKER) (test code 27 mmol/L 21-29 = 388) BASE EXCESS ARTERIAL (BEAKER) 2.1 mmol/L -2.0-3.0 (test code = 387) PATIENT TEMPERATURE (BEAKER) (test 36.1 C code = 1818) FIO2 (BEAKER) (test code = 1819) 60.0 % PROTHROMBIN [id number] 03:51:00 Test Item Value Reference Range Interpretation Comments PROTIME ([facility]) (test code = 15.2 seconds 11.7-14.7 H 759) INR ([facility]) (test code = 370) 1.2 <=5.9 RECOMMENDED COUMADIN/WARFARIN INR THERAPY RANGESSTANDARD DOSE: 2.0 - 3.0 Includes: PROPHYLAXIS forvenous thrombosis, systemic embolization; TREATMENT for venous thrombosis and/or pulmonary embolus.HIGH RISK: Target INR is 2.5-3.5 for patients with mechanical heart valves.CALCIUM, [id number] 03:51:00 Test Item Value Reference Range Interpretation Comments CALCIUM IONIZED ([facility]) (test 1.17 mmol/L 1.12-1.27 code = 698) PH, BLOOD ([facility]) (test code = 7.42 1810) POCT-GLUCOSE [id number] 02:08:00 Test Item Value Reference Range Interpretation Comments POC-GLUCOSE METER 110 mg/dL 70-110 TESTED AT [place] [address] ([facility]) [facility] 1538) [address] POCT-GLUCOSE [id number] 01:14:00 Test Item Value Reference Range Interpretation Comments POC-GLUCOSE METER 107 mg/dL 70-110 TESTED AT [place] [address] ([facility]) [facility] 1538) [address] POCT-GLUCOSE [id number] 00:29:00 Test Item Value Reference Range Interpretation Comments POC-GLUCOSE METER 129 mg/dL 70-110 H TESTED AT [place] [address] ([facility]) [facility] 1538) [address] POCT-GLUCOSE [id number] 23:07:00 Test Item Value Reference Range Interpretation Comments POC-GLUCOSE METER 152 mg/dL 70-110 H TESTED AT [place] [address] ([facility]) [facility] 1538) [address] POCT-GLUCOSE [id number] 22:09:00 Test Item Value Reference Range Interpretation Comments POC-GLUCOSE METER 171 mg/dL 70-110 H TESTED AT [place] [address] ([facility]) [facility] 1538) [address] POCT-GLUCOSE [id number] 21:13:00 Test Item Value Reference Range Interpretation Comments POC-GLUCOSE METER 171 mg/dL 70-110 H TESTED AT [facility] 6720 ([facility]) (test code = [place] [facility] 1538) [address] CALCIUM, [id number] 20:50:00 Test Item Value Reference Range Interpretation Comments CALCIUM IONIZED (BEAKER) (test 1.15 mmol/L 1.12-1.27 code = 698) PH, BLOOD ([facility]) (test code = 7.34 1810) POCT-GLUCOSE [id number] 20:21:00 Test Item Value Reference Range Interpretation Comments POC-GLUCOSE METER 206 mg/dL 70-110 H TESTED AT [facility] 6720 ([facility]) (test code = [place] [facility] 1538) [address] POCT-GLUCOSE [id number] 19:16:00 Test Item Value Reference Range Interpretation Comments POC-GLUCOSE METER 197 mg/dL 70-110 H TESTED AT [facility] 67 ([facility]) (test code = [place] [facility] 1538) [address] [id number] 17:15:00 Test Item Value Reference Range Interpretation Comments PHOSPHORUS (BEAKER) (test code = 4.1 mg/dL 2.3-4.7 604) [id number] 17:15:00 Test Item Value Reference Range Interpretation Comments MAGNESIUM (BEAKER) (test code = 1.9 mg/dL 1.6-2.6 627) EEG AWAKE AND [id number] 14:56:00For STAT EEG- after 5 PM weekdays, weekends and holidays, page the on-call EEG TechReason for exam:->AMSShould this be performed at the bedside?->YesDate(s) of EE01/15/2018DATE OF REPORT: 01/15/2018ACC: [id number] Number: [id number] Location: Inpatient ICUStart time: 13:18Stop time: 13:40ICD-10: R41.82CPT Code: 87874 HISTORY: 62 y/o man with hxof AFib, [...] Kwon MD, MSClinic al Neurophysiology/Epilepsy Attending HEPARIN [id number] 13:21:00 Test Item Value Reference Range Interpretation Comments HEPARIN ANTIBODY (BEAKER) (test code Negative Negative = 646) HEPARIN ANTIBODY OD (BEAKER) (test 0.076 <0.400 code = 2659) 4T TOTAL SCORE (AKER) (test code = 5 2258) Probability of HIT based on scoring system: 6-8 = High probability; 4-5 = intermediate probability;0-3 = low probabilityPOCT-GLUCOSE [id number] 12:26:00 Test Item Value Reference Range Interpretation Comments POC-GLUCOSE METER 128 mg/dL 70-110 H TESTED AT [facility] 6720 (BEAKER) (test code = [place] 1538) [address] FIBRIN SOLUBLE [id number] 11:02:00 Test Item Value Reference Range Interpretation Comments FIBRIN SOLUBLE MONOMER (BEAKER) Negative (test code = 1416) HEPARIN ASSAY - [id number] 10:20:00 Test Item Value Reference Range Interpretation Comments UNFRACTIONATED HEPARIN-ANTI 10A < u/ml 0.30-0.70 L (BEAKER) (test code = 1606) Recommendations for Monitoring Unfractionated Heparin Therapeutic Range: 0.3- 0.7 u/mL with continuous IV [id number] 10:14:00 Test Item Value Reference Range Interpretation Comments D-DIMER QUANTITATIVE (BEAKER) 3.76 MG/L FEU <0.50 H (test code = 671) Intended Use: The D-Dimer Assay can be used to aid in the diagnosis of Deep Vein Thrombosis (DVT) and Pulmonary Embolism Disease (PED).In patients with low pre- test probability, various studies concerning STA Liatest D-dimer test have reported that with a cutoff value of 0.50 MG/L FEU, the Negative Predictive Value (NPV) regarding the exclusion of thrombosis is within 95-100% range. GLUCOSE-STAT [id number] 10:03:00 Test Item Value Reference Range Interpretation Comments GLUCOSE RANDOM (BEAKER) (test code 151 mg/dL 70-110 H = 652) CALCIUM, [id number] 10:02:00 Test Item Value Reference Range Interpretation Comments CALCIUM IONIZED (BEAKER) (test 1.13 mmol/L 1.12-1.27 code = 698) PH, BLOOD (BEAKER) (test code = 7.36 1810) POTASSIUM-STAT [id number] 10:01:00 Test Item Value Reference Range Interpretation Comments POTASSIUM (BEAKER) (test code = 4.3 meq/L 3.6-5.5 379) CBC W/PLT COUNT & AUTO [id number] 07:43:00 Test Item Value Reference Range Interpretation Comments WHITE BLOOD CELL COUNT (BEAKER) 14.7 K/ L 3.5-10.5 H (test code = 775) RED BLOOD CELL COUNT (BEAKER) 2.90 M/ L 4.63-6.08 L (test code = 761) HEMOGLOBIN (BEAKER) (test code = 9.0 GM/DL 13.7-17.5 L 410) HEMATOCRIT (BEAKER) (test code = 27.4 % 40.1-51.0 L 411) MEAN CORPUSCULAR VOLUME (BEAKER) 94.5 fL 79.0-92.2 H (test code = 753) MEAN CORPUSCULAR HEMOGLOBIN 31.0 pg 25.7-32.2 (BEAKER) (test code = 751) MEAN CORPUSCULAR HEMOGLOBIN CONC 32.8 GM/DL 32.3-36.5 (BEAKER) (test code = 752) RED CELL DISTRIBUTION WIDTH 18.7 % 11.6-14.4 H (BEAKER) (test code = 412) PLATELET COUNT (BEAKER) (test 42 K/CU MM 150-450 L code = 756) MEAN PLATELET VOLUME (BEAKER) 11.2 fL 9.4-12.4 (test code = 754) NUCLEATED RED BLOOD CELLS 13 /100 WBC 0-0 H (BEAKER) (test code = 413) NEUTROPHILS RELATIVE PERCENT 87 % (BEAKER) (test code = 429) LYMPHOCYTES RELATIVE PERCENT 3 % (BEAKER) (test code = 430) MONOCYTES RELATIVE PERCENT 9 % (BEAKER) (test code = 431) EOSINOPHILS RELATIVE PERCENT 0 % (BEAKER) (test code = 432) BASOPHILS RELATIVE PERCENT 0 % (BEAKER) (test code = 437) NEUTROPHILS ABSOLUTE COUNT 12.77 K/ L 1.78-5.38 H (BEAKER) (test code = 670) LYMPHOCYTES ABSOLUTE COUNT 0.46 K/ L 1.32-3.57 L (BEAKER) (test code = 414) MONOCYTES ABSOLUTE COUNT (BEAKER) 1.25 K/ L 0.30-0.82 H (test code = 415) EOSINOPHILS ABSOLUTE COUNT 0.00 K/ L 0.04-0.54 L (BEAKER) (test code = 416) BASOPHILS ABSOLUTE COUNT (BEAKER) 0.01 K/ L 0.01-0.08 (test code = 417) IMMATURE GRANULOCYTES-RELATIVE 2 % 0-1 H PERCENT (BEAKER) (test code = 2801) RAD, CHEST, 1 VIEW, NON [id number] 04:00:00Reason for exam:->acute respiratory insufficiencyShould this be performed at the bedside?->Yes Addendum BeginsREPORT STATUS:A Correction: Comparison is made to previous dated 01/14/2018. Signed: Kellen Parra MDReport Verified Date/Time: 01/15/2018 04:00:43 Reading Location: [address] Reading RoomAddendum EndsFINAL REPORT CLINICAL ADEEL CATION: Respiratory insufficiency Comparison: 01/15/2018 The cardiomediastinal contours are stable. Central pulmonary vascular congestion and bilateral parenchymal opacities are unchanged. There is no pneumothorax. Support lines are stable. Signed: Kellen Parra MDReport Verified Date/Time: 01/15/201803:46:27 Reading Location: [address] Reading Room [id number] 03:36:00 Test Item Value Reference Range Interpretation Comments PHOSPHORUS (BEAKER) (test code = 2.7 mg/dL 2.3-4.7 604) [id number] 03:36:00 Test Item Value Reference Range Interpretation Comments MAGNESIUM (BEAKER) (test code = 2.0 mg/dL 1.6-2.6 627) COMPREHENSIVE METABOLIC [id number] 03:36:00 Test Item Value Reference Range Interpretation Comments TOTAL PROTEIN 5.2 gm/dL 6.0-8.3 L (BEAKER) (test code = 770) ALBUMIN (BEAKER) 2.9 g/dL 3.5-5.0 L (test code = 1145) ALKALINE PHOSPHATASE 44 U/L 40-150 (BEAKER) (test code = 346) BILIRUBIN TOTAL 5.6 mg/dL 0.2-1.2 H (BEAKER) (test code = 377) SODIUM (BEAKER) (test 137 meq/L 136-145 code = 381) POTASSIUM (BEAKER) 4.4 meq/L 3.5-5.1 (test code = 379) CHLORIDE (BEAKER) 104 meq/L 98-107 (test code = 382) CO2 (BEAKER) (test 23 meq/L 22-29 code = 355) BLOOD UREA NITROGEN 27 mg/dL 7-21 H (BEAKER) (test code = 354) CREATININE (BEAKER) 1.65 mg/dL 0.57-1.25 H (test code = 358) GLUCOSE RANDOM 134 mg/dL 70-105 H (BEAKER) (test code = 652) CALCIUM (BEAKER) 9.1 mg/dL 8.4-10.2 (test code = 697) AST (SGOT) (BEAKER) 315 U/L 5-34 H (test code = 353) ALT (SGPT) (BEAKER) 665 U/L 6-55 H (test code = 347) EGFR (BEAKER) (test 52 mL/min/1.73 ESTIMA JAYLA GFR IS code = 1092) sq m NOT ACCURATE CREATININE CLEARANCE IN PREDICTING GLOMERULAR FILTRATION RATE . ESTIMATED GFR I S NOT APPLICABLE FOR DIALYSIS PATIEN TS. Specimen slightly ictericHEPATIC FUNCTION [id number] 03:36:00 Test Item Value Reference Range Interpretation Comments TOTAL PROTEIN (BEAKER) (test code = 5.2 gm/dL 6.0-8.3 L 770) ALBUMIN (BEAKER) (test code = 1145) 2.9 g/dL 3.5-5.0 L BILIRUBIN TOTAL (BEAKER) (test code 5.6 mg/dL 0.2-1.2 H = 377) BILIRUBIN DIRECT (BEAKER) (test 4.4 mg/dL 0.1-0.5 H code = 706) ALKALINE PHOSPHATASE (BEAKER) (test 44 U/L 40-150 code = 346) AST (SGOT) (BEAKER) (test code = 315 U/L 5-34 H 353) ALT (SGPT) (BEAKER) (test code = 665 U/L 6-55 H 347) Specimen slightly ictericPROTHROMBIN [id number] 03:35:00 Test Item Value Reference Range Interpretation Comments PROTIME (BEAKER) (test code = 16.5 seconds 11.7-14.7 H 759) INR (BEAKER) (test code = 370) 1.3 <=5.9 RECOMMENDED COUMADIN/WARFARIN INR THERAPY RANGESSTANDARD DOSE: 2.0 - 3.0 Includes: PROPHYLAXIS forvenous thrombosis, systemic embolization; TREATMENT for venous thrombosis and/or pulmonary embolus.HIGH RISK: Target INR is 2.5-3.5 for patients with mechanical heart valves.LACTIC ACID, ARTERIAL, WHOLE BLOOD 2018-01-15 03:30:00 Test Item Value Reference Range Interpretation Comments LACTATE BLOOD 0.8 mmol/L 0.5-2.2 Specimen sligh tly ARTERIAL (2) (BEAKER) hemoly zed (test code = 2874) Effective 01/04/2016: Units/Reference Range ChangeNew: 0.5-2.2 mmol/L Previous: 5-20 mg/dLSpecimen slightly ictericBLOOD GAS, [id number] 03:29:00 Test Item Value Reference Range Interpretation Comments PH ARTERIAL (BEAKER) (test code = 7.36 7.35-7.45 383) PCO2 ARTERIAL (BEAKER) (test code 45 mmHg 35-45 = 384) PO2 ARTERIAL (BEAKER) (test code 114 mmHg 80-90 H = 385) O2 SATURATION ARTERIAL (BEAKER) 98.0 % 96.0-97.0 H (test code = 386) HCO3 ARTERIAL (BEAKER) (test code 25 mmol/L 21-29 = 388) BASE EXCESS ARTERIAL (BEAKER) -0.6 mmol/L -2.0-3.0 (test code = 387) PATIENT TEMPERATURE (BEAKER) 37.0 C (test code = 1818) FIO2 (BEAKER) (test code = 1819) 40.0 % OXYGEN SATURATION, [id number] 03:26:00 Test Item Value Reference Range Interpretation Comments O2 SATURATION (MEASURED) (BEAKER) 72.5 % (test code = 1455) CALCIUM, [id number] 00:17:00 Test Item Value Reference Range Interpretation Comments CALCIUM IONIZED (BEAKER) (test 1.19 mmol/L 1.12-1.27 code = 698) PH, BLOOD (BEAKER) (test code = 7.36 1810) POCT-GLUCOSE [id number] 00:15:00 Test Item Value Reference Range Interpretation Comments POC-GLUCOSE METER 144 mg/dL 70-110 H TESTED AT [place] [address] ([facility]) (test code = [facility] 1538) [address] POCT-GLUCOSE [id number] 22:43:00 Test Item Value Reference Range Interpretation Comments POC-GLUCOSE METER 98 mg/dL 70-110 TESTED AT [place] [address] ([facility]) (test code = [facility] [address] 1538) POCT-GLUCOSE [id number] 22:43:00 Test Item Value Reference Range Interpretation Comments POC-GLUCOSE METER 80 mg/dL 70-110 TESTED AT [place] [address] ([facility]) (test code = [facility] [address] 1538) VANCOMYCIN LEVEL, [id number] 20:20:00 Test Item Value Reference Range Interpretation Comments VANCOMYCIN TROUGH (BEAKER) (test 20.1 ug/mL 10.0-20.0 H code = 522) Before vanc [id number] 16:52:00 Test Item Value Reference Range Interpretation Comments PHOSPHORUS (BEAKER) (test code = 1.7 mg/dL 2.3-4.7 L 604) [id number] 16:52:00 Test Item Value Reference Range Interpretation Comments MAGNESIUM (BEAKER) (test code = 2.3 mg/dL 1.6-2.6 627) [id number] 16:39:00 Test Item Value Reference Range Interpretation Comments AMMONIA (BEAKER) (test code = 348) 32 mol/L 18-72 PH, [id number] 16:01:00 Test Item Value Reference Range Interpretation Comments PH ARTERIAL (BEAKER) (test code = 383) 7.42 7.35-7.45 GLUCOSE-STAT [id number] 16:01:00 Test Item Value Reference Range Interpretation Comments GLUCOSE RANDOM (BEAKER) (test code = 95 mg/dL 70-110 652) POTASSIUM-STAT [id number] 16:01:00 Test Item Value Reference Range Interpretation Comments POTASSIUM (BEAKER) (test code = 4.3 meq/L 3.6-5.5 379) CALCIUM, [id number] 16:01:00 Test Item Value Reference Range Interpretation Comments CALCIUM IONIZED (BEAKER) (test 1.28 mmol/L 1.12-1.27 H code = 698) PH, BLOOD (BEAKER) (test code = 7.42 1810) CALCIUM, [id number] 12:19:00 Test Item Value Reference Range Interpretation Comments CALCIUM IONIZED (BEAKER) (test 1.36 mmol/L 1.12-1.27 H code = 698) PH, BLOOD (BEAKER) (test code = 7.41 1810) GLUCOSE-STAT [id number] 12:17:00 Test Item Value Reference Range Interpretation Comments GLUCOSE RANDOM (BEAKER) (test code = 94 mg/dL 70-110 652) POTASSIUM-STAT [id number] 12:17:00 Test Item Value Reference Range Interpretation Comments POTASSIUM (BEAKER) (test code = 4.3 meq/L 3.6-5.5 379) [id number] 11:34:00 Test Item Value Reference Range Interpretation Comments MAGNESIUM (BEAKER) (test code = 2.1 mg/dL 1.6-2.6 627) BASIC METABOLIC [id number] 11:34:00 Test Item Value Reference Range Interpretation Comments SODIUM (BEAKER) 135 meq/L 136-145 L (test code = 381) POTASSIUM (BEAKER) 4.4 meq/L 3.5-5.1 (test code = 379) CHLORIDE (BEAKER) 104 meq/L 98-107 (test code = 382) CO2 (BEAKER) (test 23 meq/L 22-29 code = 355) BLOOD UREA NITROGEN 28 mg/dL 7-21 H (BEAKER) (test code = 354) CREATININE (BEAKER) 1.69 mg/dL 0.57-1.25 H (test code = 358) GLUCOSE RANDOM 148 mg/dL 70-105 H (BEAKER) (test code = 652) CALCIUM (BEAKER) 9.0 mg/dL 8.4-10.2 (test code = 697) EGFR (BEAKER) (test 50 mL/min/1.73 ESTIMA JAYLA GFR IS code = 1092) sq m NOT ACCURATE CREATININE CLEARANCE IN PREDICTING GLOMERULAR FILTRATION RATE . ESTIMATED GFR I S NOT APPLICABLE FOR DIALYSIS PATIEN TS. Specimen slightly ictericHEPATIC FUNCTION [id number] 11:34:00 Test Item Value Reference Range Interpretation Comments TOTAL PROTEIN (BEAKER) (test code = 5.2 gm/dL 6.0-8.3 L 770) ALBUMIN (BEAKER) (test code = 1145) 3.0 g/dL 3.5-5.0 L BILIRUBIN TOTAL (BEAKER) (test code 4.3 mg/dL 0.2-1.2 H = 377) BILIRUBIN DIRECT (BEAKER) (test 3.3 mg/dL 0.1-0.5 H code = 706) ALKALINE PHOSPHATASE (BEAKER) (test 39 U/L 40-150 L code = 346) AST (SGOT) (BEAKER) (test code = 817 U/L 5-34 H 353) ALT (SGPT) (BEAKER) (test code = 1247 U/L 6-55 H 347) Specimen slightly ictericBLOOD GAS, [id number] 09:44:00 Test Item Value Reference Range Interpretation Comments PH ARTERIAL (BEAKER) (test code = 7.40 7.35-7.45 383) PCO2 ARTERIAL (BEAKER) (test code 46 mmHg 35-45 H = 384) PO2 ARTERIAL (BEAKER) (test code = 238 mmHg 80-90 H 385) O2 SATURATION ARTERIAL (BEAKER) 99.5 % 96.0-97.0 H (test code = 386) HCO3 ARTERIAL (BEAKER) (test code 28 mmol/L 21-29 = 388) BASE EXCESS ARTERIAL (BEAKER) 2.4 mmol/L -2.0-3.0 (test code = 387) PATIENT TEMPERATURE (BEAKER) (test 37.0 C code = 1818) FIO2 (BEAKER) (test code = 1819) 100.0 % GLUCOSE-STAT [id number] 09:42:00 Test Item Value Reference Range Interpretation Comments GLUCOSE RANDOM (BEAKER) (test code = 95 mg/dL 70-110 652) POTASSIUM-STAT [id number] 09:42:00 Test Item Value Reference Range Interpretation Comments POTASSIUM (BEAKER) (test code = 4.5 meq/L 3.6-5.5 379) CALCIUM, [id number] 09:38:00 Test Item Value Reference Range Interpretation Comments CALCIUM IONIZED (BEAKER) (test 1.26 mmol/L 1.12-1.27 code = 698) PH, BLOOD (BEAKER) (test code = 7.41 1810) HEPARIN ASSAY - [id number] 08:44:00 Test Item Value Reference Range Interpretation Comments UNFRACTIONATED HEPARIN-ANTI 10A < u/ml 0.30-0.70 L (BEAKER) (test code = 1606) Recommendations for Monitoring Unfractionated Heparin Therapeutic Range: 0.3- 0.7 u/mL with continuous IV infusionGLUCOSE-STAT [id number] 06:41:00 Test Item Value Reference Range Interpretation Comments GLUCOSE RANDOM (BEAKER) (test code 127 mg/dL 70-110 H = 652) THROMBOELASTOGRAPH (TEG)2018-01-14 06:14:00 Test Item Value Reference Range Interpretation Comments TEG ACTIVATED CLOTTING TIME 5.1 minutes 4.0-7.0 (BEAKER) (test code = 1407) TEG FIBRINOGEN ACTIVITY (BEAKER) 66.3 degrees 61.0-73.0 (test code = 1408) TEG PLT. AGGREGATION (BEAKER) 57.8 MM 55.0-65.0 (test code = 1409) TEG FIBRINOLYSIS (BEAKER) (test 0.0 % 0.0-5.0 code = 1410) TGH ACTIVATED CLOTTING TIME 5.1 minutes 4.0-7.0 (BEAKER) (test code = 1411) TGH FIBRINOGEN ACTIVITY (BEAKER) 65.6 degrees 61.0-73.0 (test code = 1412) TGH PLT. AGGREGATION (BEAKER) 56.4 MM 55.0-65.0 (test code = 1413) TGH FIBRINOLYSIS (BEAKER) (test 0.0 % 0.0-5.0 code = 1414) [id number] 05:05:00 Test Item Value Reference Range Interpretation Comments PHOSPHORUS (BEAKER) (test code = 2.5 mg/dL 2.3-4.7 604) [id number] 05:05:00 Test Item Value Reference Range Interpretation Comments MAGNESIUM (BEAKER) (test code = 2.1 mg/dL 1.6-2.6 627) HEPATIC FUNCTION [id number] 05:05:00 Test Item Value Reference Range Interpretation Comments TOTAL PROTEIN (BEAKER) (test code = 5.2 gm/dL 6.0-8.3 L 770) ALBUMIN (BEAKER) (test code = 1145) 3.0 g/dL 3.5-5.0 L BILIRUBIN TOTAL (BEAKER) (test code 4.3 mg/dL 0.2-1.2 H = 377) BILIRUBIN DIRECT (BEAKER) (test 3.4 mg/dL 0.1-0.5 H code = 706) ALKALINE PHOSPHATASE (BEAKER) (test 40 U/L 40-150 code = 346) AST (SGOT) (BEAKER) (test code = 815 U/L 5-34 H 353) ALT (SGPT) (BEAKER) (test code = 1266 U/L 6-55 H 347) Specimen slightly [id number] 05:05:00 Test Item Value Reference Range Interpretation Comments CALCIUM (BEAKER) (test code = 697) 9.0 mg/dL 8.4-10.2 LACTATE DEHYDROGENASE (LDH)2018-01-14 05:05:00 Test Item Value Reference Range Interpretation Comments LACTATE DEHYDROGENASE (BEAKER) (test 667 U/L 125-220 H code = 635) PROTHROMBIN [id number] 05:05:00 Test Item Value Reference Range Interpretation Comments PROTIME (BEAKER) (test code = 15.2 seconds 11.7-14.7 H 759) INR (BEAKER) (test code = 370) 1.2 <=5.9 RECOMMENDED COUMADIN/WARFARIN INR THERAPY RANGESSTANDARD DOSE: 2.0 - 3.0 Includes: PROPHYLAXIS forvenous thrombosis, systemic embolization; TREATMENT for venous thrombosis and/or pulmonary embolus.HIGH RISK: Target INR is 2.5-3.5 for patients with mechanical heart valves.[id number] 05:05:00 Test Item Value Reference Range Interpretation Comments FIBRINOGEN LEVEL (BEAKER) (test 280 mg/dl 225-434 code = 658) RAD, CHEST, 1 VIEW, NON [id number] 04:57:00Reason for exam:- >impella/ECMO/intubationShould this be performed at the bedside?->YesFINAL REPORT CLINICAL INDICATION: Support lines. Comparison: 01/13/2018 The cardiomediastinal contours are stable. Cardiac opacities may reflect atelectasis but pneumonitis should be excluded clinically. There is no pneumothorax. Support lines are stable. Signed: Kellen Parra MDReport Verified Date/Time: 01/14/2018 04:57:02 Reading Location: [address] Reading Room LACTIC ACID, ARTERIAL, WHOLE [id number] 04:55:00 Test Item Value Reference Range Interpretation Comments LACTATE BLOOD ARTERIAL (2) 1.2 mmol/L 0.5-2.2 (BEAKER) (test code = 2874) Effective 01/04/2016: Units/Reference Range ChangeNew: 0.5-2.2 mmol/L Previous: 5-20 mg/dLSpecimen slightly ictericCBC (HEMOGRAM ONLY)2018-01-14 04:45:00 Test Item Value Reference Range Interpretation Comments WHITE BLOOD CELL COUNT (BEAKER) 11.7 K/ L 3.5-10.5 H (test code = 775) RED BLOOD CELL COUNT (BEAKER) 2.83 M/ L 4.63-6.08 L (test code = 761) HEMOGLOBIN (BEAKER) (test code = 9.0 GM/DL 13.7-17.5 L 410) HEMATOCRIT (BEAKER) (test code = 26.5 % 40.1-51.0 L 411) MEAN CORPUSCULAR VOLUME (BEAKER) 93.6 fL 79.0-92.2 H (test code = 753) MEAN CORPUSCULAR HEMOGLOBIN 31.8 pg 25.7-32.2 (BEAKER) (test code = 751) MEAN CORPUSCULAR HEMOGLOBIN CONC 34.0 GM/DL 32.3-36.5 (BEAKER) (test code = 752) RED CELL DISTRIBUTION WIDTH 18.4 % 11.6-14.4 H (BEAKER) (test code = 412) PLATELET COUNT (BEAKER) (test 64 K/CU MM 150-450 L code = 756) MEAN PLATELET VOLUME (BEAKER) 11.5 fL 9.4-12.4 (test code = 754) NUCLEATED RED BLOOD CELLS 16 /100 WBC 0-0 H (BEAKER) (test code = 413) CALCIUM, [id number] 04:39:00 Test Item Value Reference Range Interpretation Comments CALCIUM IONIZED (BEAKER) (test 1.20 mmol/L 1.12-1.27 code = 698) PH, BLOOD (BEAKER) (test code = 7.37 1810) OXYGEN SATURATION, [id number] 04:38:00 Test Item Value Reference Range Interpretation Comments O2 SATURATION (MEASURED) (BEAKER) 75.3 % (test code = 1455) BLOOD GAS, [id number] 04:37:00 Test Item Value Reference Range Interpretation Comments PH ARTERIAL (BEAKER) (test code = 7.39 7.35-7.45 383) PCO2 ARTERIAL (BEAKER) (test code 46 mmHg 35-45 H = 384) PO2 ARTERIAL (BEAKER) (test code = 251 mmHg 80-90 H 385) O2 SATURATION ARTERIAL (BEAKER) 99.6 % 96.0-97.0 H (test code = 386) HCO3 ARTERIAL (BEAKER) (test code 27 mmol/L 21-29 = 388) BASE EXCESS ARTERIAL (BEAKER) 1.6 mmol/L -2.0-3.0 (test code = 387) PATIENT TEMPERATURE (BEAKER) (test 35.4 C code = 1818) FIO2 (BEAKER) (test code = 1819) 40.0 % GLUCOSE-STAT [id number] 04:37:00 Test Item Value Reference Range Interpretation Comments GLUCOSE RANDOM (BEAKER) (test code 154 mg/dL 70-110 H = 652) GLUCOSE-STAT [id number] 02:52:00 Test Item Value Reference Range Interpretation Comments GLUCOSE RANDOM (BEAKER) (test code 179 mg/dL 70-110 H = 652) GLUCOSE-STAT [id number] 01:26:00 Test Item Value Reference Range Interpretation Comments GLUCOSE RANDOM (BEAKER) (test code 195 mg/dL 70-110 H = 652) [id number] 00:08:00 Test Item Value Reference Range Interpretation Comments POTASSIUM (BEAKER) (test code = 4.2 meq/L 3.5-5.1 379) [id number] 00:08:00 Test Item Value Reference Range Interpretation Comments GLUCOSE RANDOM (BEAKER) (test code 237 mg/dL 70-105 H = 652) CBC W/PLT COUNT & AUTO [id number] 22:28:00 Test Item Value Reference Range Interpretation Comments WHITE BLOOD CELL COUNT (BEAKER) 13.2 K/ L 3.5-10.5 H (test code = 775) RED BLOOD CELL COUNT (BEAKER) 2.32 M/ L 4.63-6.08 L (test code = 761) HEMOGLOBIN (BEAKER) (test code = 7.5 GM/DL 13.7-17.5 L 410) HEMATOCRIT (BEAKER) (test code = 22.6 % 40.1-51.0 L 411) MEAN CORPUSCULAR VOLUME (BEAKER) 97.4 fL 79.0-92.2 H (test code = 753) MEAN CORPUSCULAR HEMOGLOBIN 32.3 pg 25.7-32.2 H (BEAKER) (test code = 751) MEAN CORPUSCULAR HEMOGLOBIN CONC 33.2 GM/DL 32.3-36.5 (BEAKER) (test code = 752) RED CELL DISTRIBUTION WIDTH 17.6 % 11.6-14.4 H (BEAKER) (test code = 412) PLATELET COUNT (BEAKER) (test 74 K/CU MM 150-450 L code = 756) MEAN PLATELET VOLUME (BEAKER) 11.3 fL 9.4-12.4 (test code = 754) NUCLEATED RED BLOOD CELLS 11 /100 WBC 0-0 H (BEAKER) (test code = 413) RAD, CHEST, 1 VIEW, NON [id number] 21:50:00Reason for exam:->chest tubes/intubationShould this be performed [...] Lines and tubes are stable. Signed: Kyle Aritaepdamion Verified Date/Time: 01/13/2018 21:50:50 Reading Location: [facility] C0[facility] [place] Consult Reading Room THROMBOELASTOGRAPH (TEG)2018-01-13 21:45:00 Test Item Value Reference Range Interpretation Comments TEG ACTIVATED CLOTTING TIME 5.8 minutes 4.0-7.0 (BEAKER) (test code = 1407) TEG FIBRINOGEN ACTIVITY (BEAKER) 63.1 degrees 61.0-73.0 (test code = 1408) TEG PLT. AGGREGATION (BEAKER) 51.7 MM 55.0-65.0 L (test code = 1409) TEG FIBRINOLYSIS (BEAKER) (test 0.0 % 0.0-5.0 code = 1410) TGH ACTIVATED CLOTTING TIME 5.8 minutes 4.0-7.0 (BEAKER) (test code = 1411) TGH FIBRINOGEN ACTIVITY (BEAKER) 64.9 degrees 61.0-73.0 (test code = 1412) TGH PLT. AGGREGATION (BEAKER) 50.0 MM 55.0-65.0 L (test code = 1413) TGH FIBRINOLYSIS (BEAKER) (test 0.0 % 0.0-5.0 code = 1414) BASIC METABOLIC [id number] 21:35:00 Test Item Value Reference Range Interpretation Comments SODIUM (BEAKER) 135 meq/L 136-145 L (test code = 381) POTASSIUM (BEAKER) 3.4 meq/L 3.5-5.1 L (test code = 379) CHLORIDE (BEAKER) 103 meq/L 98-107 (test code = 382) CO2 (BEAKER) (test 21 meq/L 22-29 L code = 355) BLOOD UREA NITROGEN 31 mg/dL 7-21 H (BEAKER) (test code = 354) CREATININE (BEAKER) 1.96 mg/dL 0.57-1.25 H (test code = 358) GLUCOSE RANDOM 239 mg/dL 70-105 H (BEAKER) (test code = 652) CALCIUM (BEAKER) 7.9 mg/dL 8.4-10.2 L (test code = 697) EGFR (BEAKER) (test 42 mL/min/1.73 ESTIMA JAYLA GFR IS code = 1092) sq m NOT ACCURATE CREATININE CLEARANCE IN PREDICTING GLOMERULAR FILTRATION RATE . ESTIMATED GFR I S NOT APPLICABLE FOR DIALYSIS PATIEN TS. Specimen slightly [id number] 21:06:00 Test Item Value Reference Range Interpretation Comments PHOSPHORUS (BEAKER) (test code = 3.7 mg/dL 2.3-4.7 604) [id number] 21:06:00 Test Item Value Reference Range Interpretation Comments MAGNESIUM (BEAKER) (test code = 2.0 mg/dL 1.6-2.6 627) LACTIC ACID, ARTERIAL, WHOLE [id number] 21:06:00 Test Item Value Reference Range Interpretation Comments LACTATE BLOOD ARTERIAL (2) 1.8 mmol/L 0.5-2.2 (BEAKER) (test code = 2874) Effective 01/04/2016: Units/Reference Range ChangeNew: 0.5-2.2 mmol/L Previous: 5-20 mg/dLSpecimen slightly [id number] 21:01:00 Test Item Value Reference Range Interpretation Comments PARTIAL THROMBOPLASTIN TIME 35.1 seconds 22.5-36.0 (BEAKER) (test code = 760) [id number] 21:00:00 Test Item Value Reference Range Interpretation Comments FIBRINOGEN LEVEL (BEAKER) (test 253 mg/dl 225-434 code = 658) PROTHROMBIN [id number] 20:59:00 Test Item Value Reference Range Interpretation Comments PROTIME (BEAKER) (test code = 16.4 seconds 11.7-14.7 H 759) INR (BEAKER) (test code = 370) 1.3 <=5.9 RECOMMENDED COUMADIN/WARFARIN INR THERAPY RANGESSTANDARD DOSE: 2.0 - 3.0 Includes: PROPHYLAXIS forvenous thrombosis, systemic embolization; TREATMENT for venous thrombosis and/or pulmonary embolus.HIGH RISK: Target INR is 2.5-3.5 for patients with mechanical heart valves.BLOOD GAS, [id number] 20:47:00 Test Item Value Reference Range Interpretation Comments PH ARTERIAL (BEAKER) (test code = 7.39 7.35-7.45 383) PCO2 ARTERIAL (BEAKER) (test code 37 mmHg 35-45 = 384) PO2 ARTERIAL (BEAKER) (test code 230 mmHg 80-90 H = 385) O2 SATURATION ARTERIAL (BEAKER) 99.5 % 96.0-97.0 H (test code = 386) HCO3 ARTERIAL (BEAKER) (test code 22 mmol/L 21-29 = 388) BASE EXCESS ARTERIAL (BEAKER) -2.6 mmol/L -2.0-3.0 L (test code = 387) PATIENT TEMPERATURE (BEAKER) 35.6 C (test code = 1818) FIO2 (BEAKER) (test code = 1819) 40.0 % GLUCOSE-STAT [id number] 20:47:00 Test Item Value Reference Range Interpretation Comments GLUCOSE RANDOM (BEAKER) (test code 235 mg/dL 70-110 H = 652) CALCIUM, [id number] 20:47:00 Test Item Value Reference Range Interpretation Comments CALCIUM IONIZED (BEAKER) (test 0.97 mmol/L 1.12-1.27 L code = 698) PH, BLOOD (BEAKER) (test code = 7.39 1810) HGB/HCT (H&H) - STAT [id number] 20:46:00 Test Item Value Reference Range Interpretation Comments HEMOGLOBIN (BEAKER) (test code = 7.7 g/dL 13.0-16.8 L 410) HEMATOCRIT (BEAKER) (test code = 23.0 % 40.0-50.0 L 411) POTASSIUM-STAT [id number] 20:46:00 Test Item Value Reference Range Interpretation Comments POTASSIUM (BEAKER) (test code = 3.4 meq/L 3.6-5.5 L 379) SODIUM NA-STAT [id number] 20:46:00 Test Item Value Reference Range Interpretation Comments SODIUM (BEAKER) (test code = 381) 133 meq/L 135-148 L OXYGEN SATURATION, [id number] 20:42:00 Test Item Value Reference Range Interpretation Comments O2 SATURATION (MEASURED) (BEAKER) 74.1 % (test code = 1455) BLOOD GAS, [id number] 18:58:00 Test Item Value Reference Range Interpretation Comments PH ARTERIAL (BEAKER) (test code = 7.53 7.35-7.45 H 383) PCO2 ARTERIAL (BEAKER) (test code 24 mmHg 35-45 L = 384) PO2 ARTERIAL (BEAKER) (test code 582 mmHg 80-90 H = 385) O2 SATURATION ARTERIAL (BEAKER) 99.9 % 96.0-97.0 H (test code = 386) HCO3 ARTERIAL (BEAKER) (test code 20 mmol/L 21-29 L = 388) BASE EXCESS ARTERIAL (BEAKER) -2.3 mmol/L -2.0-3.0 L (test code = 387) PATIENT TEMPERATURE (BEAKER) 37.0 C (test code = 1818) FIO2 (BEAKER) (test code = 1819) 100.0 % SODIUM NA-STAT [id number] 18:58:00 Test Item Value Reference Range Interpretation Comments SODIUM (BEAKER) (test code = 381) 131 meq/L 135-148 L POTASSIUM-STAT [id number] 18:58:00 Test Item Value Reference Range Interpretation Comments POTASSIUM (BEAKER) (test code = 3.4 meq/L 3.6-5.5 L 379) GLUCOSE-STAT [id number] 18:58:00 Test Item Value Reference Range Interpretation Comments GLUCOSE RANDOM (BEAKER) (test code 214 mg/dL 70-110 H = 652) HGB/HCT (H&H) - STAT [id number] 18:58:00 Test Item Value Reference Range Interpretation Comments HEMOGLOBIN (BEAKER) (test code = 8.1 g/dL 13.0-16.8 L 410) HEMATOCRIT (BEAKER) (test code = 24.0 % 40.0-50.0 L 411) THROMBOELASTOGRAPH (TEG)2018-01-13 18:23:00 Test Item Value Reference Range Interpretation Comments TEG ACTIVATED CLOTTING TIME 18.1 minutes 4.0-7.0 H (BEAKER) (test code = 1407) TEG FIBRINOGEN ACTIVITY (BEAKER) 46.7 degrees 61.0-73.0 L (test code = 1408) TEG PLT. AGGREGATION (BEAKER) 51.7 MM 55.0-65.0 L (test code = 1409) TEG FIBRINOLYSIS (BEAKER) (test 0.1 % 0.0-5.0 code = 1410) TGH ACTIVATED CLOTTING TIME 8.6 minutes 4.0-7.0 H (BEAKER) (test code = 1411) TGH FIBRINOGEN ACTIVITY (BEAKER) 61.3 degrees 61.0-73.0 (test code = 1412) TGH PLT. AGGREGATION (BEAKER) 50.2 MM 55.0-65.0 L (test code = 1413) TGH FIBRINOLYSIS (BEAKER) (test 0.0 % 0.0-5.0 code = 1414) BLOOD GAS, [id number] 18:11:00 Test Item Value Reference Range Interpretation Comments PH ARTERIAL (BEAKER) (test code = 7.56 7.35-7.45 H 383) PCO2 ARTERIAL (BEAKER) (test code 27 mmHg 35-45 L = 384) PO2 ARTERIAL (BEAKER) (test code = 523 mmHg 80-90 H 385) O2 SATURATION ARTERIAL (BEAKER) 99.9 % 96.0-97.0 H (test code = 386) HCO3 ARTERIAL (BEAKER) (test code 24 mmol/L 21-29 = 388) BASE EXCESS ARTERIAL (BEAKER) 1.6 mmol/L -2.0-3.0 (test code = 387) PATIENT TEMPERATURE (BEAKER) (test 37.0 C code = 1818) FIO2 (BEAKER) (test code = 1819) 97.0 % SODIUM NA-STAT [id number] 18:11:00 Test Item Value Reference Range Interpretation Comments SODIUM (BEAKER) (test code = 381) 132 meq/L 135-148 L GLUCOSE-STAT [id number] 18:11:00 Test Item Value Reference Range Interpretation Comments GLUCOSE RANDOM (BEAKER) (test code 200 mg/dL 70-110 H = 652) HGB/HCT (H&H) - STAT [id number] 18:11:00 Test Item Value Reference Range Interpretation Comments HEMOGLOBIN (BEAKER) (test code = 8.2 g/dL 13.0-16.8 L 410) HEMATOCRIT (BEAKER) (test code = 24.0 % 40.0-50.0 L 411) POTASSIUM-STAT [id number] 18:07:00 Test Item Value Reference Range Interpretation Comments POTASSIUM (BEAKER) (test code = 3.5 meq/L 3.6-5.5 L 379) [id number] 16:37:00 Test Item Value Reference Range Interpretation Comments PHOSPHORUS (BEAKER) (test code = 2.5 mg/dL 2.3-4.7 604) [id number] 16:37:00 Test Item Value Reference Range Interpretation Comments MAGNESIUM (BEAKER) (test code = 2.1 mg/dL 1.6-2.6 627) [id number] 16:29:00 Test Item Value Reference Range Interpretation Comments PROTIME (BEAKER) (test code = 15.1 seconds 11.7-14.7 H 759) INR (BEAKER) (test code = 370) 1.2 <=5.9 PARTIAL THROMBOPLASTIN TIME 65.5 seconds 22.5-36.0 H (BEAKER) (test code = 760) RECOMMENDED COUMADIN/WARFARIN INR THERAPY RANGESSTANDARD DOSE: 2.0 - 3.0 Includes: PROPHYLAXIS forvenous thrombosis, systemic embolization; TREATMENT for venous thrombosis and/or pulmonary embolus.HIGH RISK: Target INR is 2.5-3.5 for patients with mechanical heart valves.BLOOD GAS, [id number] 16:16:00 Test Item Value Reference Range Interpretation Comments PH ARTERIAL (BEAKER) (test code = 7.64 7.35-7.45 HH 383) PCO2 ARTERIAL (BEAKER) (test code 24 mmHg 35-45 L = 384) PO2 ARTERIAL (BEAKER) (test code = 289 mmHg 80-90 H 385) O2 SATURATION ARTERIAL (BEAKER) 99.8 % 96.0-97.0 H (test code = 386) HCO3 ARTERIAL (BEAKER) (test code 25 mmol/L 21-29 = 388) BASE EXCESS ARTERIAL (BEAKER) 4.4 mmol/L -2.0-3.0 H (test code = 387) PATIENT TEMPERATURE (BEAKER) (test 36.7 C code = 1818) FIO2 (BEAKER) (test code = 1819) 40.0 % CALCIUM, [id number] 16:14:00 Test Item Value Reference Range Interpretation Comments CALCIUM IONIZED (BEAKER) (test 1.09 mmol/L 1.12-1.27 L code = 698) PH, BLOOD (BEAKER) (test code = 7.64 1810) GLUCOSE-STAT [id number] 16:12:00 Test Item Value Reference Range Interpretation Comments GLUCOSE RANDOM (BEAKER) (test code 182 mg/dL 70-110 H = 652) CALCIUM, [id number] 12:53:00 Test Item Value Reference Range Interpretation Comments CALCIUM IONIZED (BEAKER) (test 1.12 mmol/L 1.12-1.27 code = 698) PH, BLOOD (BEAKER) (test code = 7.51 1810) BLOOD GAS, [id number] 12:53:00 Test Item Value Reference Range Interpretation Comments PH ARTERIAL (BEAKER) (test code = 7.51 7.35-7.45 H 383) PCO2 ARTERIAL (BEAKER) (test code 33 mmHg 35-45 L = 384) PO2 ARTERIAL (BEAKER) (test code = 350 mmHg 80-90 H 385) O2 SATURATION ARTERIAL (BEAKER) 99.8 % 96.0-97.0 H (test code = 386) HCO3 ARTERIAL (BEAKER) (test code 26 mmol/L 21-29 = 388) BASE EXCESS ARTERIAL (BEAKER) 2.5 mmol/L -2.0-3.0 (test code = 387) PATIENT TEMPERATURE (BEAKER) (test 37.2 C code = 1818) FIO2 (BEAKER) (test code = 1819) 40.0 % HGB/HCT (H&H) - STAT [id number] 12:53:00 Test Item Value Reference Range Interpretation Comments HEMOGLOBIN (BEAKER) (test code = 8.3 g/dL 13.0-16.8 L 410) HEMATOCRIT (BEAKER) (test code = 24.0 % 40.0-50.0 L 411) GLUCOSE-STAT [id number] 12:53:00 Test Item Value Reference Range Interpretation Comments GLUCOSE RANDOM (BEAKER) (test code 185 mg/dL 70-110 H = 652) POTASSIUM-STAT [id number] 12:52:00 Test Item Value Reference Range Interpretation Comments POTASSIUM (BEAKER) (test code = 3.7 meq/L 3.6-5.5 379) CBC W/PLT COUNT & AUTO [id number] 11:04:00 Test Item Value Reference Range Interpretation Comments WHITE BLOOD CELL COUNT (BEAKER) 11.1 K/ L 3.5-10.5 H (test code = 775) RED BLOOD CELL COUNT (BEAKER) 2.49 M/ L 4.63-6.08 L (test code = 761) HEMOGLOBIN (BEAKER) (test code = 8.1 GM/DL 13.7-17.5 L 410) HEMATOCRIT (BEAKER) (test code = 24.2 % 40.1-51.0 L 411) MEAN CORPUSCULAR VOLUME (BEAKER) 97.2 fL 79.0-92.2 H (test code = 753) MEAN CORPUSCULAR HEMOGLOBIN 32.5 pg 25.7-32.2 H (BEAKER) (test code = 751) MEAN CORPUSCULAR HEMOGLOBIN CONC 33.5 GM/DL 32.3-36.5 (BEAKER) (test code = 752) RED CELL DISTRIBUTION WIDTH 17.8 % 11.6-14.4 H (BEAKER) (test code = 412) PLATELET COUNT (BEAKER) (test code 89 K/CU MM 150-450 L = 756) MEAN PLATELET VOLUME (BEAKER) 11.4 fL 9.4-12.4 (test code = 754) NUCLEATED RED BLOOD CELLS (BEAKER) 8 /100 WBC 0-0 H (test code = 413) POTASSIUM-STAT [id number] 10:49:00 Test Item Value Reference Range Interpretation Comments POTASSIUM (BEAKER) (test code = 3.8 meq/L 3.6-5.5 379) HEPARIN ASSAY - [id number] 09:55:00 Test Item Value Reference Range Interpretation Comments UNFRACTIONATED HEPARIN-ANTI 10A 0.14 u/ml 0.30-0.70 L (BEAKER) (test code = 1606) Recommendations for Monitoring Unfractionated Heparin Therapeutic Range: 0.3- 0.7 u/mL with continuous IV [id number] 09:54:00 Test Item Value Reference Range Interpretation Comments PARTIAL THROMBOPLASTIN TIME 57.6 seconds 22.5-36.0 H (BEAKER) (test code = 760) BLOOD GAS, [id number] 09:33:00 Test Item Value Reference Range Interpretation Comments PH ARTERIAL (BEAKER) (test code = 7.50 7.35-7.45 H 383) PCO2 ARTERIAL (BEAKER) (test code 33 mmHg 35-45 L = 384) PO2 ARTERIAL (BEAKER) (test code = 336 mmHg 80-90 H 385) O2 SATURATION ARTERIAL (BEAKER) 99.8 % 96.0-97.0 H (test code = 386) HCO3 ARTERIAL (BEAKER) (test code 25 mmol/L 21-29 = 388) BASE EXCESS ARTERIAL (BEAKER) 2.1 mmol/L -2.0-3.0 (test code = 387) PATIENT TEMPERATURE (BEAKER) (test 37.2 C code = 1818) FIO2 (BEAKER) (test code = 1819) 40.0 % GLUCOSE-STAT [id number] 09:33:00 Test Item Value Reference Range Interpretation Comments GLUCOSE RANDOM (BEAKER) (test code 192 mg/dL 70-110 H = 652) GLUCOSE-STAT [id number] 09:33:00 Test Item Value Reference Range Interpretation Comments GLUCOSE RANDOM (BEAKER) (test code 192 mg/dL 70-110 H = 652) CALCIUM, [id number] 09:32:00 Test Item Value Reference Range Interpretation Comments CALCIUM IONIZED (BEAKER) (test 1.15 mmol/L 1.12-1.27 code = 698) PH, BLOOD (BEAKER) (test code = 7.51 1810) BLOOD GAS, [id number] 07:23:00 Test Item Value Reference Range Interpretation Comments PH ARTERIAL (BEAKER) (test code = 7.53 7.35-7.45 H 383) PCO2 ARTERIAL (BEAKER) (test code 30 mmHg 35-45 L = 384) PO2 ARTERIAL (BEAKER) (test code = 336 mmHg 80-90 H 385) O2 SATURATION ARTERIAL (BEAKER) 99.8 % 96.0-97.0 H (test code = 386) HCO3 ARTERIAL (BEAKER) (test code 24 mmol/L 21-29 = 388) BASE EXCESS ARTERIAL (BEAKER) 1.8 mmol/L -2.0-3.0 (test code = 387) PATIENT TEMPERATURE (BEAKER) (test 36.9 C code = 1818) FIO2 (BEAKER) (test code = 1819) 40.0 % THROMBOELASTOGRAPH (TEG)2018-01-13 06:54:00 Test Item Value Reference Range Interpretation Comments TEG ACTIVATED CLOTTING TIME 28.1 minutes 4.0-7.0 H (BEAKER) (test code = 1407) TEG FIBRINOGEN ACTIVITY (BEAKER) 28.6 degrees 61.0-73.0 L (test code = 1408) TEG PLT. AGGREGATION (BEAKER) 45.8 MM 55.0-65.0 L (test code = 1409) TEG FIBRINOLYSIS (BEAKER) (test 0.0 % 0.0-5.0 code = 1410) TGH ACTIVATED CLOTTING TIME 9.9 minutes 4.0-7.0 H (BEAKER) (test code = 1411) TGH FIBRINOGEN ACTIVITY (BEAKER) 61.4 degrees 61.0-73.0 (test code = 1412) TGH PLT. AGGREGATION (BEAKER) 50.5 MM 55.0-65.0 L (test code = 1413) TGH FIBRINOLYSIS (BEAKER) (test 0.0 % 0.0-5.0 code = 1414) BLOOD GAS, [id number] 06:13:00 Test Item Value Reference Range Interpretation Comments PH ARTERIAL (BEAKER) (test code = 7.53 7.35-7.45 H 383) PCO2 ARTERIAL (BEAKER) (test code 28 mmHg 35-45 L = 384) PO2 ARTERIAL (BEAKER) (test code = 337 mmHg 80-90 H 385) O2 SATURATION ARTERIAL (BEAKER) 99.8 % 96.0-97.0 H (test code = 386) HCO3 ARTERIAL (BEAKER) (test code 23 mmol/L 21-29 = 388) BASE EXCESS ARTERIAL (BEAKER) 0.7 mmol/L -2.0-3.0 (test code = 387) PATIENT TEMPERATURE (BEAKER) (test 36.8 C code = 1818) FIO2 (BEAKER) (test code = 1819) 40.0 % BLOOD GAS, [id number] 05:13:00 Test Item Value Reference Range Interpretation Comments PH ARTERIAL (BEAKER) (test code = 7.46 7.35-7.45 H 383) PCO2 ARTERIAL (BEAKER) (test code 37 mmHg 35-45 = 384) PO2 ARTERIAL (BEAKER) (test code = 522 mmHg 80-90 H 385) O2 SATURATION ARTERIAL (BEAKER) 99.9 % 96.0-97.0 H (test code = 386) HCO3 ARTERIAL (BEAKER) (test code 26 mmol/L 21-29 = 388) BASE EXCESS ARTERIAL (BEAKER) 1.6 mmol/L -2.0-3.0 (test code = 387) PATIENT TEMPERATURE (BEAKER) (test 36.8 C code = 1818) FIO2 (BEAKER) (test code = 1819) 100.0 % [id number] 04:41:00 Test Item Value Reference Range Interpretation Comments PARTIAL THROMBOPLASTIN TIME 61.3 seconds 22.5-36.0 H (BEAKER) (test code = 760) RAD, CHEST, 1 VIEW, NON [id number] 04:38:00Reason for exam:- >impella/ECMO/intubationShould this be performed at the bedside?->YesFINAL REPORT CLINICAL INDICATION: Support lines. Comparison: 01/12/2018 The cardiomediastinal contours are stable. Central pulmonary vascular prominence and bilateral parenchymalopacities are previous. There is no pneumothorax. Support lines are stable. Signed: Kellen Parra MDReport Verified Date/Time: 01/13/2018 04:38:41 Reading Location: [address] Reading Room HEPATIC FUNCTION [id number] 04:25:00 Test Item Value Reference Range Interpretation Comments TOTAL PROTEIN (BEAKER) (test code = 5.0 gm/dL 6.0-8.3 L 770) ALBUMIN (BEAKER) (test code = 1145) 2.7 g/dL 3.5-5.0 L BILIRUBIN TOTAL (BEAKER) (test code 4.6 mg/dL 0.2-1.2 H = 377) BILIRUBIN DIRECT (BEAKER) (test 3.6 mg/dL 0.1-0.5 H code = 706) ALKALINE PHOSPHATASE (BEAKER) (test 43 U/L 40-150 code = 346) AST (SGOT) (BEAKER) (test code = 2670 U/L 5-34 H 353) ALT (SGPT) (BEAKER) (test code = 2232 U/L 6-55 H 347) Specimen slightly [id number] 04:19:00 Test Item Value Reference Range Interpretation Comments PHOSPHORUS (BEAKER) (test code = 4.1 mg/dL 2.3-4.7 604) [id number] 04:19:00 Test Item Value Reference Range Interpretation Comments MAGNESIUM (BEAKER) (test code = 1.9 mg/dL 1.6-2.6 627) [id number] 04:19:00 Test Item Value Reference Range Interpretation Comments CALCIUM (BEAKER) (test code = 697) 8.6 mg/dL 8.4-10.2 BASIC METABOLIC [id number] 04:19:00 Test Item Value Reference Range Interpretation Comments SODIUM (BEAKER) 136 meq/L 136-145 (test code = 381) POTASSIUM (BEAKER) 4.2 meq/L 3.5-5.1 (test code = 379) CHLORIDE (BEAKER) 102 meq/L 98-107 (test code = 382) CO2 (BEAKER) (test 25 meq/L 22-29 code = 355) BLOOD UREA NITROGEN 24 mg/dL 7-21 H (BEAKER) (test code = 354) CREATININE (BEAKER) 1.80 mg/dL 0.57-1.25 H (test code = 358) GLUCOSE RANDOM 188 mg/dL 70-105 H (BEAKER) (test code = 652) CALCIUM (BEAKER) 8.6 mg/dL 8.4-10.2 (test code = 697) EGFR (BEAKER) (test 47 mL/min/1.73 ESTIMA JAYLA GFR IS code = 1092) sq m NOT ACCURATE CREATININE CLEARANCE IN PREDICTING GLOMERULAR FILTRATION RATE . ESTIMATED GFR I S NOT APPLICABLE FOR DIALYSIS PATIEN TS. Specimen slightly ictericLACTATE DEHYDROGENASE (LDH)2018-01-13 04:19:00 Test Item Value Reference Range Interpretation Comments LACTATE DEHYDROGENASE (BEAKER) (test 1658 U/L 125-220 H code = 635) [id number] 04:16:00 Test Item Value Reference Range Interpretation Comments FIBRINOGEN LEVEL (BEAKER) (test 299 mg/dl 225-434 code = 658) LACTIC ACID, ARTERIAL, WHOLE [id number] 04:16:00 Test Item Value Reference Range Interpretation Comments LACTATE BLOOD ARTERIAL (2) 0.8 mmol/L 0.5-2.2 (BEAKER) (test code = 2874) Effective 01/04/2016: Units/Reference Range ChangeNew: 0.5-2.2 mmol/L Previous: 5-20 mg/dLSpecimen slightly ictericPROTHROMBIN [id number] 04:15:00 Test Item Value Reference Range Interpretation Comments PROTIME (BEAKER) (test code = 15.8 seconds 11.7-14.7 H 759) INR (BEAKER) (test code = 370) 1.3 <=5.9 RECOMMENDED COUMADIN/WARFARIN INR THERAPY RANGESSTANDARD DOSE: 2.0 - 3.0 Includes: PROPHYLAXIS forvenous thrombosis, systemic embolization; TREATMENT for venous thrombosis and/or pulmonary embolus.HIGH RISK: Target INR is 2.5-3.5 for patients with mechanical heart valves.CALCIUM, [id number] 04:04:00 Test Item Value Reference Range Interpretation Comments CALCIUM IONIZED (BEAKER) (test 1.15 mmol/L 1.12-1.27 code = 698) PH, BLOOD (BEAKER) (test code = 7.33 1810) BLOOD GAS, [id number] 04:03:00 Test Item Value Reference Range Interpretation Comments PH ARTERIAL (BEAKER) (test code = 7.33 7.35-7.45 L 383) PCO2 ARTERIAL (BEAKER) (test code 55 mmHg 35-45 H = 384) PO2 ARTERIAL (BEAKER) (test code = 324 mmHg 80-90 H 385) O2 SATURATION ARTERIAL (BEAKER) 99.7 % 96.0-97.0 H (test code = 386) HCO3 ARTERIAL (BEAKER) (test code 28 mmol/L 21-29 = 388) BASE EXCESS ARTERIAL (BEAKER) 1.8 mmol/L -2.0-3.0 (test code = 387) PATIENT TEMPERATURE (BEAKER) (test 36.8 C code = 1818) FIO2 (BEAKER) (test code = 1819) 40.0 % PLATELET [id number] 03:58:00 Test Item Value Reference Range Interpretation Comments PLATELET COUNT (BEAKER) (test code 89 K/CU MM 150-450 L = 756) OXYGEN SATURATION, [id number] 03:57:00 Test Item Value Reference Range Interpretation Comments O2 SATURATION (MEASURED) (BEAKER) 79.4 % (test code = 1455) BLOOD GAS, [id number] 01:19:00 Test Item Value Reference Range Interpretation Comments PH ARTERIAL (BEAKER) (test code = 7.47 7.35-7.45 H 383) PCO2 ARTERIAL (BEAKER) (test code 36 mmHg 35-45 = 384) PO2 ARTERIAL (BEAKER) (test code = 328 mmHg 80-90 H 385) O2 SATURATION ARTERIAL (BEAKER) 99.8 % 96.0-97.0 H (test code = 386) HCO3 ARTERIAL (BEAKER) (test code 26 mmol/L 21-29 = 388) BASE EXCESS ARTERIAL (BEAKER) 1.8 mmol/L -2.0-3.0 (test code = 387) PATIENT TEMPERATURE (BEAKER) (test 36.6 C code = 1818) FIO2 (BEAKER) (test code = 1819) 40.0 % GLUCOSE-STAT [id number] 01:19:00 Test Item Value Reference Range Interpretation Comments GLUCOSE RANDOM (BEAKER) (test code 177 mg/dL 70-110 H = 652) POTASSIUM-STAT [id number] 01:18:00 Test Item Value Reference Range Interpretation Comments POTASSIUM (BEAKER) (test code = 4.0 meq/L 3.6-5.5 379) CALCIUM, [id number] 01:17:00 Test Item Value Reference Range Interpretation Comments CALCIUM IONIZED (BEAKER) (test 1.13 mmol/L 1.12-1.27 code = 698) PH, BLOOD (BEAKER) (test code = 7.46 1810) THROMBOELASTOGRAPH (TEG)2018-01-12 20:40:00 Test Item Value Reference Range Interpretation Comments TEG ACTIVATED CLOTTING TIME 12.3 minutes 4.0-7.0 H (BEAKER) (test code = 1407) TEG FIBRINOGEN ACTIVITY (BEAKER) 56.6 degrees 61.0-73.0 L (test code = 1408) TEG PLT. AGGREGATION (BEAKER) 56.6 MM 55.0-65.0 (test code = 1409) TEG FIBRINOLYSIS (BEAKER) (test 6.6 % 0.0-5.0 H code = 1410) TGH ACTIVATED CLOTTING TIME 6.4 minutes 4.0-7.0 (BEAKER) (test code = 1411) TGH FIBRINOGEN ACTIVITY (BEAKER) 71.3 degrees 61.0-73.0 (test code = 1412) TGH PLT. AGGREGATION (BEAKER) 60.5 MM 55.0-65.0 (test code = 1413) TGH FIBRINOLYSIS (BEAKER) (test 0.0 % 0.0-5.0 code = 1414) [id number] 20:36:00 Test Item Value Reference Range Interpretation Comments POTASSIUM (BEAKER) (test code = 4.2 meq/L 3.5-5.1 379) [id number] 20:36:00 Test Item Value Reference Range Interpretation Comments MAGNESIUM (BEAKER) (test code = 1.8 mg/dL 1.6-2.6 627) [id number] 20:36:00 Test Item Value Reference Range Interpretation Comments PHOSPHORUS (BEAKER) (test code = 3.5 mg/dL 2.3-4.7 604) LACTIC ACID, ARTERIAL, WHOLE [id number] 20:33:00 Test Item Value Reference Range Interpretation Comments LACTATE BLOOD ARTERIAL (2) 0.8 mmol/L 0.5-2.2 (BEAKER) (test code = 2874) Effective 01/04/2016: Units/Reference Range ChangeNew: 0.5-2.2 mmol/L Previous: 5-20 mg/dLSpecimen slightly ictericBLOOD GAS, [id number] 20:20:00 Test Item Value Reference Range Interpretation Comments PH ARTERIAL (BEAKER) (test code = 7.45 7.35-7.45 383) PCO2 ARTERIAL (BEAKER) (test code 39 mmHg 35-45 = 384) PO2 ARTERIAL (BEAKER) (test code = 289 mmHg 80-90 H 385) O2 SATURATION ARTERIAL (BEAKER) 99.7 % 96.0-97.0 H (test code = 386) HCO3 ARTERIAL (BEAKER) (test code 27 mmol/L 21-29 = 388) BASE EXCESS ARTERIAL (BEAKER) 2.5 mmol/L -2.0-3.0 (test code = 387) PATIENT TEMPERATURE (BEAKER) (test 36.8 C code = 1818) FIO2 (BEAKER) (test code = 1819) 40.0 % GLUCOSE-STAT [id number] 20:20:00 Test Item Value Reference Range Interpretation Comments GLUCOSE RANDOM (BEAKER) (test code 180 mg/dL 70-110 H = 652) [id number] 18:34:00 Test Item Value Reference Range Interpretation Comments GLUCOSE RANDOM (BEAKER) (test code 218 mg/dL 70-105 H = 652) BLOOD GAS, [id number] 18:18:00 Test Item Value Reference Range Interpretation Comments PH ARTERIAL (BEAKER) (test code = 7.44 7.35-7.45 383) PCO2 ARTERIAL (BEAKER) (test code 40 mmHg 35-45 = 384) PO2 ARTERIAL (BEAKER) (test code = 321 mmHg 80-90 H 385) O2 SATURATION ARTERIAL (BEAKER) 99.7 % 96.0-97.0 H (test code = 386) HCO3 ARTERIAL (BEAKER) (test code 27 mmol/L 21-29 = 388) BASE EXCESS ARTERIAL (BEAKER) 2.4 mmol/L -2.0-3.0 (test code = 387) PATIENT TEMPERATURE (BEAKER) (test 36.9 C code = 1818) FIO2 (BEAKER) (test code = 1819) 40.0 % [id number] 17:12:00 Test Item Value Reference Range Interpretation Comments PARTIAL THROMBOPLASTIN TIME 54.1 seconds 22.5-36.0 H (BEAKER) (test code = 760) [id number] 17:12:00 Test Item Value Reference Range Interpretation Comments FIBRINOGEN LEVEL (BEAKER) (test 285 mg/dl 225-434 code = 658) PROTHROMBIN [id number] 17:10:00 Test Item Value Reference Range Interpretation Comments PROTIME (BEAKER) (test code = 19.8 seconds 11.7-14.7 H 759) INR (BEAKER) (test code = 370) 1.7 <=5.9 RECOMMENDED COUMADIN/WARFARIN INR THERAPY RANGESSTANDARD DOSE: 2.0 - 3.0 Includes: PROPHYLAXIS forvenous thrombosis, systemic embolization; TREATMENT for venous thrombosis and/or pulmonary embolus.HIGH RISK: Target INR is 2.5-3.5 for patients with mechanical heart valves.LACTIC ACID, ARTERIAL, WHOLE BLOOD 2018-01-12 17:03:00 Test Item Value Reference Range Interpretation Comments LACTATE BLOOD ARTERIAL (2) 0.8 mmol/L 0.5-2.2 (BEAKER) (test code = 2874) Effective 01/04/2016: Units/Reference Range ChangeNew: 0.5-2.2 mmol/L Previous: 5-20 mg/dLSpecimen slightly [id number] 17:01:00 Test Item Value Reference Range Interpretation Comments POTASSIUM (BEAKER) (test code = 4.5 meq/L 3.5-5.1 379) [id number] 17:01:00 Test Item Value Reference Range Interpretation Comments GLUCOSE RANDOM (BEAKER) (test code 239 mg/dL 70-105 H = 652) PLATELET [id number] 16:46:00 Test Item Value Reference Range Interpretation Comments PLATELET COUNT (BEAKER) (test code 86 K/CU MM 150-450 L = 756) BLOOD GAS, [id number] 16:36:00 Test Item Value Reference Range Interpretation Comments PH ARTERIAL (BEAKER) (test code = 7.46 7.35-7.45 H 383) PCO2 ARTERIAL (BEAKER) (test code 39 mmHg 35-45 = 384) PO2 ARTERIAL (BEAKER) (test code = 256 mmHg 80-90 H 385) O2 SATURATION ARTERIAL (BEAKER) 99.6 % 96.0-97.0 H (test code = 386) HCO3 ARTERIAL (BEAKER) (test code 27 mmol/L 21-29 = 388) BASE EXCESS ARTERIAL (BEAKER) 3.2 mmol/L -2.0-3.0 H (test code = 387) PATIENT TEMPERATURE (BEAKER) (test 37.0 C code = 1818) CALCIUM, [id number] 16:36:00 Test Item Value Reference Range Interpretation Comments CALCIUM IONIZED (BEAKER) (test 1.08 mmol/L 1.12-1.27 L code = 698) PH, BLOOD (BEAKER) (test code = 7.46 1810) [id number] 15:00:00 Test Item Value Reference Range Interpretation Comments POTASSIUM (BEAKER) (test code = 4.7 meq/L 3.5-5.1 379) [id number] 15:00:00 Test Item Value Reference Range Interpretation Comments GLUCOSE RANDOM (BEAKER) (test code 210 mg/dL 70-105 H = 652) BLOOD GAS, [id number] 14:42:00 Test Item Value Reference Range Interpretation Comments PH ARTERIAL (BEAKER) (test code = 7.45 7.35-7.45 383) PCO2 ARTERIAL (BEAKER) (test code 41 mmHg 35-45 = 384) PO2 ARTERIAL (BEAKER) (test code = 308 mmHg 80-90 H 385) O2 SATURATION ARTERIAL (BEAKER) 99.7 % 96.0-97.0 H (test code = 386) HCO3 ARTERIAL (BEAKER) (test code 28 mmol/L 21-29 = 388) BASE EXCESS ARTERIAL (BEAKER) 3.7 mmol/L -2.0-3.0 H (test code = 387) PATIENT TEMPERATURE (BEAKER) (test 36.8 C code = 1818) FIO2 (BEAKER) (test code = 1819) 40.0 % RAD, CHEST, 1 VIEW, NON [id number] 14:41:00Reason for exam:->chest tube insertionFINAL REPORT CHEST [...] present. Signed: Kay Wilkerson MDReport Verified Date/Time: 01/12/2018 14:41:22 Reading Location: [address] Transitional Reading Room MBOELASTOGRAPH (TEG)2018-01-12 12:43:00 Test Item Value Reference Range Interpretation Comments TEG ACTIVATED CLOTTING TIME 30.7 minutes 4.0-7.0 H (BEAKER) (test code = 1407) TEG FIBRINOGEN ACTIVITY (BEAKER) 23.3 degrees 61.0-73.0 L (test code = 1408) TEG PLT. AGGREGATION (BEAKER) 54.6 MM 55.0-65.0 L (test code = 1409) TEG FIBRINOLYSIS (BEAKER) (test 0.0 % 0.0-5.0 code = 1410) TGH ACTIVATED CLOTTING TIME 11.6 minutes 4.0-7.0 H (BEAKER) (test code = 1411) TGH FIBRINOGEN ACTIVITY (BEAKER) 58.6 degrees 61.0-73.0 L (test code = 1412) TGH PLT. AGGREGATION (BEAKER) 52.2 MM 55.0-65.0 L (test code = 1413) TGH FIBRINOLYSIS (BEAKER) (test 0.0 % 0.0-5.0 code = 1414) [id number] 11:23:00 Test Item Value Reference Range Interpretation Comments D-DIMER QUANTITATIVE (BEAKER) 1.67 MG/L FEU <0.50 H (test code = 671) Intended Use: The D-Dimer Assay can be used to aid in the diagnosis of Deep Vein Thrombosis (DVT) and Pulmonary Embolism Disease (PED).In patients with low pre- test probability, various studies concerning STA Liatest D-dimer test have reported that with a cutoff value of 0.50 MG/L FEU, the Negative Predictive Value (NPV) regarding the exclusion of thrombosis is within 95-100% range. [id number] 10:10:00 Test Item Value Reference Range Interpretation Comments MAGNESIUM (BEAKER) 2.1 mg/dL 1.6-2.6 Specimen slightly (test code = 627) hemolyzed [id number] 10:10:00 Test Item Value Reference Range Interpretation Comments PHOSPHORUS (BEAKER) 4.2 mg/dL 2.3-4.7 Specimen slightly (test code = 604) hemolyzed [id number] 10:10:00 Test Item Value Reference Range Interpretation Comments POTASSIUM (BEAKER) 5.0 meq/L 3.5-5.1 Specimen slightly (test code = 379) hemolyzed [id number] 10:10:00 Test Item Value Reference Range Interpretation Comments GLUCOSE RANDOM (BEAKER) (test code 204 mg/dL 70-105 H = 652) [id number] 10:07:00 Test Item Value Reference Range Interpretation Comments FIBRINOGEN LEVEL (BEAKER) (test 251 mg/dl 225-434 code = 658) ANTITHROMBIN [id number] 10:04:00 Test Item Value Reference Range Interpretation Comments ANTITHROMBIN III ACTIVITY (BEAKER) 46.0 % 80.0-120.0 L (test code = 711) [id number] 09:58:00 Test Item Value Reference Range Interpretation Comments PARTIAL THROMBOPLASTIN TIME 59.8 seconds 22.5-36.0 H (BEAKER) (test code = 760) PROTHROMBIN [id number] 09:57:00 Test Item Value Reference Range Interpretation Comments PROTIME (BEAKER) (test code = 19.3 seconds 11.7-14.7 H 759) INR (BEAKER) (test code = 370) 1.6 <=5.9 RECOMMENDED COUMADIN/WARFARIN INR THERAPY RANGESSTANDARD DOSE: 2.0 - 3.0 Includes: PROPHYLAXIS forvenous thrombosis, systemic embolization; TREATMENT for venous thrombosis and/or pulmonary embolus.HIGH RISK: Target INR is 2.5-3.5 for patients with mechanical heart valves.PLATELET [id number] 09:49:00 Test Item Value Reference Range Interpretation Comments PLATELET COUNT (BEAKER) (test code 94 K/CU MM 150-450 L = 756) BLOOD GAS, [id number] 09:47:00 Test Item Value Reference Range Interpretation Comments PH ARTERIAL (BEAKER) (test code = 7.47 7.35-7.45 H 383) PCO2 ARTERIAL (BEAKER) (test code 38 mmHg 35-45 = 384) PO2 ARTERIAL (BEAKER) (test code = 259 mmHg 80-90 H 385) O2 SATURATION ARTERIAL (BEAKER) 99.6 % 96.0-97.0 H (test code = 386) HCO3 ARTERIAL (BEAKER) (test code 27 mmol/L 21-29 = 388) BASE EXCESS ARTERIAL (BEAKER) 3.2 mmol/L -2.0-3.0 H (test code = 387) PATIENT TEMPERATURE (BEAKER) (test 36.9 C code = 1818) FIO2 (BEAKER) (test code = 1819) 40.0 % CALCIUM, [id number] 09:46:00 Test Item Value Reference Range Interpretation Comments CALCIUM IONIZED (BEAKER) (test 1.12 mmol/L 1.12-1.27 code = 698) PH, BLOOD (BEAKER) (test code = 7.47 1810) HEPARIN ASSAY - [id number] 08:21:00 Test Item Value Reference Range Interpretation Comments UNFRACTIONATED HEPARIN-ANTI 10A < u/ml 0.30-0.70 L (BEAKER) (test code = 1606) Recommendations for Monitoring Unfractionated Heparin Therapeutic Range: 0.3- 0.7 u/mL with continuous IV infusionLACTATE DEHYDROGENASE (LDH)2018-01-12 07:40:00 Test Item Value Reference Range Interpretation Comments LACTATE DEHYDROGENASE (BEAKER) (test 3247 U/L 125-220 H code = 635) [id number] 07:38:00 Test Item Value Reference Range Interpretation Comments MAGNESIUM (BEAKER) (test code = 2.3 mg/dL 1.6-2.6 627) [id number] 07:38:00 Test Item Value Reference Range Interpretation Comments GLUCOSE RANDOM (BEAKER) (test code 217 mg/dL 70-105 H = 652) LACTIC ACID, ARTERIAL, WHOLE [id number] 07:27:00 Test Item Value Reference Range Interpretation Comments LACTATE BLOOD ARTERIAL (2) 1.4 mmol/L 0.5-2.2 (BEAKER) (test code = 2874) Effective 01/04/2016: Units/Reference Range ChangeNew: 0.5-2.2 mmol/L Previous: 5-20 mg/dLSpecimen slightly ictericGLUCOSE-STAT [id number] 06:55:00 Test Item Value Reference Range Interpretation Comments GLUCOSE RANDOM (BEAKER) (test code 212 mg/dL 70-110 H = 652) BLOOD GAS, [id number] 06:55:00 Test Item Value Reference Range Interpretation Comments PH ARTERIAL (BEAKER) (test code = 7.44 7.35-7.45 383) PCO2 ARTERIAL (BEAKER) (test code 40 mmHg 35-45 = 384) PO2 ARTERIAL (BEAKER) (test code = 259 mmHg 80-90 H 385) O2 SATURATION ARTERIAL (BEAKER) 99.6 % 96.0-97.0 H (test code = 386) HCO3 ARTERIAL (BEAKER) (test code 26 mmol/L 21-29 = 388) BASE EXCESS ARTERIAL (BEAKER) 2.1 mmol/L -2.0-3.0 (test code = 387) PATIENT TEMPERATURE (BEAKER) (test 36.7 C code = 1818) FIO2 (BEAKER) (test code = 1819) 40.0 % POTASSIUM-STAT [id number] 06:52:00 Test Item Value Reference Range Interpretation Comments POTASSIUM (BEAKER) (test code = 4.8 meq/L 3.6-5.5 379) BLOOD GAS, [id number] 06:43:00 Test Item Value Reference Range Interpretation Comments PH ARTERIAL (BEAKER) (test code = 7.33 7.35-7.45 L 383) PCO2 ARTERIAL (BEAKER) (test code 55 mmHg 35-45 H = 384) PO2 ARTERIAL (BEAKER) (test code = 475 mmHg 80-90 H 385) O2 SATURATION ARTERIAL (BEAKER) 99.8 % 96.0-97.0 H (test code = 386) HCO3 ARTERIAL (BEAKER) (test code 28 mmol/L 21-29 = 388) BASE EXCESS ARTERIAL (BEAKER) 0.8 mmol/L -2.0-3.0 (test code = 387) PATIENT TEMPERATURE (BEAKER) (test 36.7 C code = 1818) FIO2 (BEAKER) (test code = 1819) 100.0 % RAD, CHEST, 1 VIEW, NON [id number] 06:14:00Reason for exam:- >impella/ECMO/intubationShould this be performed [...] changed. There is no pneumothorax. Signed: Raz Tayloreport Verified Date/Time: 01/12/2018 06:14:29 Reading Location: [address] Transitional Reading Room LACTATE DEHYDROGENASE (LDH)2018-01-12 05:03:00 Test Item Value Reference Range Interpretation Comments LACTATE DEHYDROGENASE (BEAKER) (test 3014 U/L 125-220 H code = 635) HEPATIC FUNCTION [id number] 05:03:00 Test Item Value Reference Range Interpretation Comments TOTAL PROTEIN (BEAKER) (test code = 4.8 gm/dL 6.0-8.3 L 770) ALBUMIN (BEAKER) (test code = 1145) 2.7 g/dL 3.5-5.0 L BILIRUBIN TOTAL (BEAKER) (test code 4.3 mg/dL 0.2-1.2 H = 377) BILIRUBIN DIRECT (BEAKER) (test 3.2 mg/dL 0.1-0.5 H code = 706) ALKALINE PHOSPHATASE (BEAKER) (test 43 U/L 40-150 code = 346) AST (SGOT) (BEAKER) (test code = 2716 U/L 5-34 H 353) ALT (SGPT) (BEAKER) (test code = 1544 U/L 6-55 H 347) Specimen slightly [id number] 05:01:00 Test Item Value Reference Range Interpretation Comments PHOSPHORUS (BEAKER) (test code = 5.0 mg/dL 2.3-4.7 H 604) [id number] 05:01:00 Test Item Value Reference Range Interpretation Comments MAGNESIUM (BEAKER) (test code = 2.1 mg/dL 1.6-2.6 627) [id number] 05:01:00 Test Item Value Reference Range Interpretation Comments CALCIUM (BEAKER) (test code = 697) 8.5 mg/dL 8.4-10.2 BASIC METABOLIC [id number] 05:01:00 Test Item Value Reference Range Interpretation Comments SODIUM (BEAKER) 137 meq/L 136-145 (test code = 381) POTASSIUM (BEAKER) 5.1 meq/L 3.5-5.1 (test code = 379) CHLORIDE (BEAKER) 103 meq/L 98-107 (test code = 382) CO2 (BEAKER) (test 24 meq/L 22-29 code = 355) BLOOD UREA NITROGEN 25 mg/dL 7-21 H (BEAKER) (test code = 354) CREATININE (BEAKER) 2.54 mg/dL 0.57-1.25 H (test code = 358) GLUCOSE RANDOM 208 mg/dL 70-105 H (BEAKER) (test code = 652) CALCIUM (BEAKER) 8.5 mg/dL 8.4-10.2 (test code = 697) EGFR (BEAKER) (test 32 mL/min/1.73 ESTIMA JAYLA GFR IS code = 1092) sq m NOT ACCURATE CREATININE CLEARANCE IN PREDICTING GLOMERULAR FILTRATION RATE . ESTIMATED GFR I S NOT APPLICABLE FOR DIALYSIS PATIEN TS. Specimen slightly ictericLACTIC ACID, ARTERIAL, WHOLE [id number] 04:42:00 Test Item Value Reference Range Interpretation Comments LACTATE BLOOD ARTERIAL (2) 1.5 mmol/L 0.5-2.2 (BEAKER) (test code = 2874) Effective 01/04/2016: Units/Reference Range ChangeNew: 0.5-2.2 mmol/L Previous: 5-20 mg/dLSpecimen slightly [id number] 04:38:00 Test Item Value Reference Range Interpretation Comments FIBRINOGEN LEVEL (BEAKER) (test 252 mg/dl 225-434 code = 658) [id number] 04:38:00 Test Item Value Reference Range Interpretation Comments PARTIAL THROMBOPLASTIN TIME 54.6 seconds 22.5-36.0 H (BEAKER) (test code = 760) CBC W/PLT COUNT & AUTO [id number] 04:37:00 Test Item Value Reference Range Interpretation Comments WHITE BLOOD CELL COUNT (BEAKER) 10.9 K/ L 3.5-10.5 H (test code = 775) RED BLOOD CELL COUNT (BEAKER) 2.74 M/ L 4.63-6.08 L (test code = 761) HEMOGLOBIN (BEAKER) (test code = 8.7 GM/DL 13.7-17.5 L 410) HEMATOCRIT (BEAKER) (test code = 25.8 % 40.1-51.0 L 411) MEAN CORPUSCULAR VOLUME (BEAKER) 94.2 fL 79.0-92.2 H (test code = 753) MEAN CORPUSCULAR HEMOGLOBIN 31.8 pg 25.7-32.2 (BEAKER) (test code = 751) MEAN CORPUSCULAR HEMOGLOBIN CONC 33.7 GM/DL 32.3-36.5 (BEAKER) (test code = 752) RED CELL DISTRIBUTION WIDTH 18.6 % 11.6-14.4 H (BEAKER) (test code = 412) PLATELET COUNT (BEAKER) (test 110 K/CU MM 150-450 L code = 756) MEAN PLATELET VOLUME (BEAKER) 11.8 fL 9.4-12.4 (test code = 754) NUCLEATED RED BLOOD CELLS 3 /100 WBC 0-0 H (BEAKER) (test code = 413) NEUTROPHILS RELATIVE PERCENT 91 % (BEAKER) (test code = 429) LYMPHOCYTES RELATIVE PERCENT 3 % (BEAKER) (test code = 430) MONOCYTES RELATIVE PERCENT 5 % (BEAKER) (test code = 431) EOSINOPHILS RELATIVE PERCENT 0 % (BEAKER) (test code = 432) BASOPHILS RELATIVE PERCENT 0 % (BEAKER) (test code = 437) NEUTROPHILS ABSOLUTE COUNT 9.98 K/ L 1.78-5.38 H (BEAKER) (test code = 670) LYMPHOCYTES ABSOLUTE COUNT 0.31 K/ L 1.32-3.57 L (BEAKER) (test code = 414) MONOCYTES ABSOLUTE COUNT (BEAKER) 0.55 K/ L 0.30-0.82 (test code = 415) EOSINOPHILS ABSOLUTE COUNT 0.00 K/ L 0.04-0.54 L (BEAKER) (test code = 416) BASOPHILS ABSOLUTE COUNT (BEAKER) 0.02 K/ L 0.01-0.08 (test code = 417) IMMATURE GRANULOCYTES-RELATIVE 1 % 0-1 PERCENT (BEAKER) (test code = 2801) PROTHROMBIN [id number] 04:37:00 Test Item Value Reference Range Interpretation Comments PROTIME (BEAKER) (test code = 19.9 seconds 11.7-14.7 H 759) INR (BEAKER) (test code = 370) 1.7 <=5.9 RECOMMENDED COUMADIN/WARFARIN INR THERAPY RANGESSTANDARD DOSE: 2.0 - 3.0 Includes: PROPHYLAXIS forvenous thrombosis, systemic embolization; TREATMENT for venous thrombosis and/or pulmonary embolus.HIGH RISK: Target INR is 2.5-3.5 for patients with mechanical heart valves.CALCIUM, [id number] 04:31:00 Test Item Value Reference Range Interpretation Comments CALCIUM IONIZED (BEAKER) (test 1.12 mmol/L 1.12-1.27 code = 698) PH, BLOOD (BEAKER) (test code = 7.42 1810) BLOOD GAS, [id number] 04:30:00 Test Item Value Reference Range Interpretation Comments PH ARTERIAL (BEAKER) (test code = 7.42 7.35-7.45 383) PCO2 ARTERIAL (BEAKER) (test code 41 mmHg 35-45 = 384) PO2 ARTERIAL (BEAKER) (test code = 226 mmHg 80-90 H 385) O2 SATURATION ARTERIAL (BEAKER) 99.5 % 96.0-97.0 H (test code = 386) HCO3 ARTERIAL (BEAKER) (test code 26 mmol/L 21-29 = 388) BASE EXCESS ARTERIAL (BEAKER) 1.6 mmol/L -2.0-3.0 (test code = 387) PATIENT TEMPERATURE (BEAKER) (test 36.8 C code = 1818) FIO2 (BEAKER) (test code = 1819) 40.0 % PLATELET [id number] 04:23:00 Test Item Value Reference Range Interpretation Comments PLATELET COUNT (BEAKER) (test 110 K/CU MM 150-450 L code = 756) OXYGEN SATURATION, [id number] 04:14:00 Test Item Value Reference Range Interpretation Comments O2 SATURATION (MEASURED) (BEAKER) 79.7 % (test code = 1455) [id number] 02:54:00 Test Item Value Reference Range Interpretation Comments PARTIAL THROMBOPLASTIN TIME 134.3 seconds 22.5-36.0 H (BEAKER) (test code = 760) [id number] 02:25:00 Test Item Value Reference Range Interpretation Comments PARTIAL THROMBOPLASTIN TIME 94.0 seconds 22.5-36.0 H (BEAKER) (test code = 760) BLOOD GAS, [id number] 01:56:00 Test Item Value Reference Range Interpretation Comments PH ARTERIAL (BEAKER) (test code = 7.61 7.35-7.45 HH 383) PCO2 ARTERIAL (BEAKER) (test code 25 mmHg 35-45 L = 384) PO2 ARTERIAL (BEAKER) (test code = 209 mmHg 80-90 H 385) O2 SATURATION ARTERIAL (BEAKER) 99.6 % 96.0-97.0 H (test code = 386) HCO3 ARTERIAL (BEAKER) (test code 25 mmol/L 21-29 = 388) BASE EXCESS ARTERIAL (BEAKER) 3.4 mmol/L -2.0-3.0 H (test code = 387) PATIENT TEMPERATURE (BEAKER) (test 36.5 C code = 1818) FIO2 (BEAKER) (test code = 1819) 40.0 % GLUCOSE-STAT [id number] 01:53:00 Test Item Value Reference Range Interpretation Comments GLUCOSE RANDOM (BEAKER) (test code 201 mg/dL 70-110 H = 652) POTASSIUM-STAT [id number] 01:52:00 Test Item Value Reference Range Interpretation Comments POTASSIUM (BEAKER) (test code = 4.9 meq/L 3.6-5.5 379) LACTIC ACID, ARTERIAL, WHOLE [id number] 01:18:00 Test Item Value Reference Range Interpretation Comments LACTATE BLOOD ARTERIAL (2) 2.0 mmol/L 0.5-2.2 (BEAKER) (test code = 2874) Effective 01/04/2016: Units/Reference Range ChangeNew: 0.5-2.2 mmol/L Previous: 5-20 mg/dLSpecimen slightly [id number] 01:18:00 Test Item Value Reference Range Interpretation Comments POTASSIUM (BEAKER) (test code = 5.1 meq/L 3.5-5.1 379) [id number] 01:18:00 Test Item Value Reference Range Interpretation Comments GLUCOSE RANDOM (BEAKER) (test code 194 mg/dL 70-105 H = 652) PROTHROMBIN [id number] 01:15:00 Test Item Value Reference Range Interpretation Comments PROTIME (BEAKER) (test code = 21.2 seconds 11.7-14.7 H 759) INR (BEAKER) (test code = 370) 1.8 <=5.9 RECOMMENDED COUMADIN/WARFARIN INR THERAPY RANGESSTANDARD DOSE: 2.0 - 3.0 Includes: PROPHYLAXIS forvenous thrombosis, systemic embolization; TREATMENT for venous thrombosis and/or pulmonary embolus.HIGH RISK: Target INR is 2.5-3.5 for patients with mechanical heart valves.[id number] 01:15:00 Test Item Value Reference Range Interpretation Comments FIBRINOGEN LEVEL (BEAKER) (test 233 mg/dl 225-434 code = 658) PLATELET [id number] 01:01:00 Test Item Value Reference Range Interpretation Comments PLATELET COUNT (BEAKER) (test code 84 K/CU MM 150-450 L = 756) BLOOD GAS, [id number] 01:00:00 Test Item Value Reference Range Interpretation Comments PH ARTERIAL (BEAKER) (test code = 7.43 7.35-7.45 383) PCO2 ARTERIAL (BEAKER) (test code 40 mmHg 35-45 = 384) PO2 ARTERIAL (BEAKER) (test code = 285 mmHg 80-90 H 385) O2 SATURATION ARTERIAL (BEAKER) 99.7 % 96.0-97.0 H (test code = 386) HCO3 ARTERIAL (BEAKER) (test code 26 mmol/L 21-29 = 388) BASE EXCESS ARTERIAL (BEAKER) 1.7 mmol/L -2.0-3.0 (test code = 387) PATIENT TEMPERATURE (BEAKER) (test 36.7 C code = 4188) FIO2 (BEAKER) (test code = 1819) 40.0 % CALCIUM, [id number] 01:00:00 Test Item Value Reference Range Interpretation Comments CALCIUM IONIZED (BEAKER) (test 1.08 mmol/L 1.12-1.27 L code = 698) PH, BLOOD (BEAKER) (test code = 7.43 1810) THROMBOELASTOGRAPH (TEG)[id number] 00:01:00 Test Item Value Reference Range Interpretation Comments TEG ACTIVATED CLOTTING minutes 4.0-7.0 No cl ot detected TIME (BEAKER) (test code = 1407) [facility]GH ACTIVATED CLOTTING 13.3 minutes 4.0-7.0 H TIME (BEAKER) (test code = 1411) [facility] FIBRINOGEN ACTIVITY 44.7 degrees 61.0-73.0 L (BEAKER) (test code = 1412) [facility] PLT. AGGREGATION 46.3 MM 55.0-65.0 L (BEAKER) (test code = 1413) [facility] FIBRINOLYSIS 0.0 % 0.0-5.0 (BEAKER) (test code = 1414) GLUCOSE-STAT [id number] 23:53:00 Test Item Value Reference Range Interpretation Comments GLUCOSE RANDOM (BEAKER) (test code 182 mg/dL 70-110 H = 652) BLOOD GAS, [id number] 23:52:00 Test Item Value Reference Range Interpretation Comments PH ARTERIAL (BEAKER) (test code = 7.52 7.35-7.45 H 383) PCO2 ARTERIAL (BEAKER) (test code 31 mm Hg 35-45 L = 384) PO2 ARTERIAL (BEAKER) (test code = 280 mm Hg 80-90 H 385) O2 SATURATION ARTERIAL (BEAKER) 99.7 % 96.0-97.0 H (test code = 386) HCO3 ARTERIAL (BEAKER) (test code 25 mmol/L 21-29 = 388) BASE EXCESS ARTERIAL (BEAKER) 2.3 mmol/L -2.0-3.0 (test code = 387) PATIENT TEMPERATURE (BEAKER) (test 36.7 code = 1818) FIO2 (BEAKER) (test code = 1819) 40 [id number] 23:05:00 Test Item Value Reference Range Interpretation Comments PARTIAL THROMBOPLASTIN TIME > seconds 22.5-36.0 HH (BEAKER) (test code = 760) BLOOD GAS, [id number] 23:01:00 Test Item Value Reference Range Interpretation Comments PH ARTERIAL (BEAKER) (test code = 7.42 7.35-7.45 383) PCO2 ARTERIAL (BEAKER) (test code 44 mmHg 35-45 = 384) PO2 ARTERIAL (BEAKER) (test code = 541 mmHg 80-90 H 385) O2 SATURATION ARTERIAL (BEAKER) 99.9 % 96.0-97.0 H (test code = 386) HCO3 ARTERIAL (BEAKER) (test code 28 mmol/L 21-29 = 388) BASE EXCESS ARTERIAL (BEAKER) 2.6 mmol/L -2.0-3.0 (test code = 387) PATIENT TEMPERATURE (BEAKER) (test 37.0 C code = 1818) FIO2 (BEAKER) (test code = 1819) 100.0 % [id number] 22:46:00 Test Item Value Reference Range Interpretation Comments FIBRINOGEN LEVEL (BEAKER) (test 223 mg/dl 225-434 L code = 658) PROTHROMBIN [id number] 22:45:00 Test Item Value Reference Range Interpretation Comments PROTIME (BEAKER) (test code = 23.0 seconds 11.7-14.7 H 759) INR (BEAKER) (test code = 370) 2.0 <=5.9 RECOMMENDED COUMADIN/WARFARIN INR THERAPY RANGESSTANDARD DOSE: 2.0 - 3.0 Includes: PROPHYLAXIS forvenous thrombosis, systemic embolization; TREATMENT for venous thrombosis and/or pulmonary embolus.HIGH RISK: Target INR is 2.5-3.5 for patients with mechanical heart valves.BLOOD GAS, [id number] 22:22:00 Test Item Value Reference Range Interpretation Comments PH ARTERIAL (BEAKER) (test code = 7.67 7.35-7.45 HH 383) PCO2 ARTERIAL (BEAKER) (test code 20 mmHg 35-45 LL = 384) PO2 ARTERIAL (BEAKER) (test code = 261 mmHg 80-90 H 385) O2 SATURATION ARTERIAL (BEAKER) 99.8 % 96.0-97.0 H (test code = 386) HCO3 ARTERIAL (BEAKER) (test code 23 mmol/L 21-29 = 388) BASE EXCESS ARTERIAL (BEAKER) 2.6 mmol/L -2.0-3.0 (test code = 387) PATIENT TEMPERATURE (BEAKER) (test 35.8 C code = 1818) FIO2 (BEAKER) (test code = 1819) 40.0 % CALCIUM, [id number] 22:21:00 Test Item Value Reference Range Interpretation Comments CALCIUM IONIZED (BEAKER) (test 1.05 mmol/L 1.12-1.27 L code = 698) PH, BLOOD (BEAKER) (test code = 7.67 1810) PLATELET [id number] 22:21:00 Test Item Value Reference Range Interpretation Comments PLATELET COUNT (BEAKER) (test code 71 K/CU MM 150-450 L = 756) GLUCOSE-STAT [id number] 22:20:00 Test Item Value Reference Range Interpretation Comments GLUCOSE RANDOM (BEAKER) (test code 189 mg/dL 70-110 H = 652) POTASSIUM-STAT [id number] 22:19:00 Test Item Value Reference Range Interpretation Comments POTASSIUM (BEAKER) (test code = 5.1 meq/L 3.6-5.5 379) THROMBOELASTOGRAPH (TEG)2018-01-11 21:07:00 Test Item Value Reference Range Interpretation Comments TEG ACTIVATED CLOTTING minutes 4.0-7.0 No cl ot detected. TIME (BEAKER) (test code = 1407) TEG FIBRINOGEN ACTIVITY degrees 61.0-73.0 No c lot detected. (BEAKER) (test code = 1408) TEG PLT. AGGREGATION MM 55.0-65.0 No clot detected. (BEAKER) (test code = 1409) TEG FIBRINOLYSIS % 0.0-5.0 No clot det ected. (BEAKER) (test code = 1410) TGH ACTIVATED CLOTTING 15.3 minutes 4.0-7.0 H TIME (BEAKER) (test code = 1411) TGH FIBRINOGEN ACTIVITY 42.8 degrees 61.0-73.0 L (BEAKER) (test code = 1412) TGH PLT. AGGREGATION 43.9 MM 55.0-65.0 L (BEAKER) (test code = 1413) TGH FIBRINOLYSIS 0.0 % 0.0-5.0 (BEAKER) (test code = 1414) LACTATE DEHYDROGENASE (LDH)2018-01-11 20:57:00 Test Item Value Reference Range Interpretation Comments LACTATE DEHYDROGENASE (BEAKER) (test 2133 U/L 125-220 H code = 635) [id number] 20:55:00 Test Item Value Reference Range Interpretation Comments POTASSIUM (BEAKER) (test code = 5.4 meq/L 3.5-5.1 H 379) [id number] 20:55:00 Test Item Value Reference Range Interpretation Comments MAGNESIUM (BEAKER) (test code = 1.6 mg/dL 1.6-2.6 627) [id number] 20:55:00 Test Item Value Reference Range Interpretation Comments PHOSPHORUS (BEAKER) (test code = 2.9 mg/dL 2.3-4.7 604) GLUCOSE-STAT [id number] 20:31:00 Test Item Value Reference Range Interpretation Comments GLUCOSE RANDOM (BEAKER) (test code 166 mg/dL 70-110 H = 652) POTASSIUM-STAT [id number] 20:30:00 Test Item Value Reference Range Interpretation Comments POTASSIUM (BEAKER) (test code = 5.2 meq/L 3.6-5.5 379) BLOOD GAS, [id number] 20:30:00 Test Item Value Reference Range Interpretation Comments PH ARTERIAL (BEAKER) (test code = 7.59 7.35-7.45 H 383) PCO2 ARTERIAL (BEAKER) (test code 24 mmHg 35-45 L = 384) PO2 ARTERIAL (BEAKER) (test code = 151 mmHg 80-90 H 385) O2 SATURATION ARTERIAL (BEAKER) 99.3 % 96.0-97.0 H (test code = 386) HCO3 ARTERIAL (BEAKER) (test code 23 mmol/L 21-29 = 388) BASE EXCESS ARTERIAL (BEAKER) 1.6 mmol/L -2.0-3.0 (test code = 387) PATIENT TEMPERATURE (BEAKER) (test 36.5 C code = 1818) FIO2 (BEAKER) (test code = 1819) 40.0 % OXYGEN SATURATION, [id number] 18:46:00 Test Item Value Reference Range Interpretation Comments O2 SATURATION (MEASURED) (BEAKER) 81.5 % (test code = 1455) RAD, CHEST, 1 VIEW, NON [id number] 18:27:00Reason for exam:->impella/ECMO placementShould this be performed [...] MDReport Verified Date/Time: 01/11/2018 18:27:33 Reading Location: [facility] [id number] Ortho Consult Reading Room [id number] 18:11:00 Test Item Value Reference Range Interpretation Comments PARTIAL THROMBOPLASTIN TIME > seconds 22.5-36.0 HH (BEAKER) (test code = 760) LACTATE DEHYDROGENASE (LDH)2018-01-11 18:09:00 Test Item Value Reference Range Interpretation Comments LACTATE DEHYDROGENASE 1590 U/L 125-220 H Specim en slightly (BEAKER) (test code = hemoly zed 635) BASIC METABOLIC [id number] 18:08:00 Test Item Value Reference Range Interpretation Comments SODIUM (BEAKER) 139 meq/L 136-145 (test code = 381) POTASSIUM (BEAKER) 6.5 meq/L 3.5-5.1 HH Specimen slightly (test code = 379) hemolyzed CHLORIDE (BEAKER) 106 meq/L 98-107 (test code = 382) CO2 (BEAKER) (test 15 meq/L 22-29 L code = 355) BLOOD UREA NITROGEN 27 mg/dL 7-21 H (BEAKER) (test code = 354) CREATININE (BEAKER) 3.65 mg/dL 0.57-1.25 H Specimen slightly (test code = 358) hemolyzed GLUCOSE RANDOM 162 mg/dL 70-105 H (BEAKER) (test code = 652) CALCIUM (BEAKER) 8.8 mg/dL 8.4-10.2 (test code = 697) EGFR (BEAKER) (test 21 mL/min/1.73 ESTIMA JAYLA GFR IS code = 1092) sq m NOT ACCURATE CREATININE CLEARANCE IN PREDICTING GLOMERULAR FILTRATION RATE . ESTIMATED GFR I S NOT APPLICABLE FOR DIALYSIS PATIEN TS. [id number] 17:54:00 Test Item Value Reference Range Interpretation Comments MAGNESIUM (BEAKER) 1.8 mg/dL 1.6-2.6 Specimen slightly (test code = 627) hemolyzed [id number] 17:54:00 Test Item Value Reference Range Interpretation Comments PHOSPHORUS (BEAKER) 4.6 mg/dL 2.3-4.7 Specimen slightly (test code = 604) hemolyzed LACTIC ACID, ARTERIAL, WHOLE [id number] 17:53:00 Test Item Value Reference Range Interpretation Comments LACTATE BLOOD 10.8 mmol/L 0.5-2.2 H Specimen sligh tly ARTERIAL (2) (BEAKER) hemoly zed (test code = 2874) Effective 01/04/2016: Units/Reference Range ChangeNew: 0.5-2.2 mmol/L Previous: 5-20 mg/[id number] 17:46:00 Test Item Value Reference Range Interpretation Comments D-DIMER QUANTITATIVE (BEAKER) 0.82 MG/L FEU <0.50 H (test code = 671) Intended Use: The D-Dimer Assay can be used to aid in the diagnosis of Deep Vein Thrombosis (DVT) and Pulmonary Embolism Disease (PED).In patients with low pre- test probability, various studies concerning STA Liatest D-dimer test have reported that with a cutoff value of 0.50 MG/L FEU, the Negative Predictive Value (NPV) regarding the exclusion of thrombosis is within 95-100% range. [id number] 17:46:00 Test Item Value Reference Range Interpretation Comments FIBRINOGEN LEVEL (BEAKER) (test 201 mg/dl 225-434 L code = 658) PROTHROMBIN [id number] 17:45:00 Test Item Value Reference Range Interpretation Comments PROTIME (BEAKER) (test code = 24.4 seconds 11.7-14.7 H 759) INR (BEAKER) (test code = 370) 2.2 <=5.9 RECOMMENDED COUMADIN/WARFARIN INR THERAPY RANGESSTANDARD DOSE: 2.0 - 3.0 Includes: PROPHYLAXIS forvenous thrombosis, systemic embolization; TREATMENT for venous thrombosis and/or pulmonary embolus.HIGH RISK: Target INR is 2.5-3.5 for patients with mechanical heart valves.BLOOD GAS, [id number] 17:44:00 Test Item Value Reference Range Interpretation Comments PH ARTERIAL (BEAKER) (test code = 7.52 7.35-7.45 H 383) PCO2 ARTERIAL (BEAKER) (test code 21 mmHg 35-45 L = 384) PO2 ARTERIAL (BEAKER) (test code 231 mmHg 80-90 H = 385) O2 SATURATION ARTERIAL (BEAKER) 99.6 % 96.0-97.0 H (test code = 386) HCO3 ARTERIAL (BEAKER) (test code 17 mmol/L 21-29 L = 388) BASE EXCESS ARTERIAL (BEAKER) -4.9 mmol/L -2.0-3.0 L (test code = 387) PATIENT TEMPERATURE (BEAKER) 36.1 C (test code = 1818) FIO2 (BEAKER) (test code = 1819) 40.0 % SODIUM NA-STAT [id number] 17:44:00 Test Item Value Reference Range Interpretation Comments SODIUM (BEAKER) (test code = 381) 134 meq/L 135-148 L POTASSIUM-STAT [id number] 17:44:00 Test Item Value Reference Range Interpretation Comments POTASSIUM (BEAKER) (test code = 6.2 meq/L 3.6-5.5 HH 379) GLUCOSE-STAT [id number] 17:44:00 Test Item Value Reference Range Interpretation Comments GLUCOSE RANDOM (BEAKER) (test code 147 mg/dL 70-110 H = 652) HGB/HCT (H&H) - STAT [id number] 17:44:00 Test Item Value Reference Range Interpretation Comments HEMOGLOBIN (BEAKER) (test code = 9.9 g/dL 13.0-16.8 L 410) HEMATOCRIT (BEAKER) (test code = 29.0 % 40.0-50.0 L 411) CALCIUM, [id number] 17:41:00 Test Item Value Reference Range Interpretation Comments CALCIUM IONIZED (BEAKER) (test 1.03 mmol/L 1.12-1.27 L code = 698) PH, BLOOD (BEAKER) (test code = 7.52 1810) OXYGEN SATURATION, [id number] 17:39:00 Test Item Value Reference Range Interpretation Comments O2 SATURATION (MEASURED) (BEAKER) 84.5 % (test code = 1455) CBC W/PLT COUNT & AUTO [id number] 17:37:00 Test Item Value Reference Range Interpretation Comments WHITE BLOOD CELL COUNT (BEAKER) 9.3 K/ L 3.5-10.5 (test code = 775) RED BLOOD CELL COUNT (BEAKER) 2.91 M/ L 4.63-6.08 L (test code = 761) HEMOGLOBIN (BEAKER) (test code = 9.2 GM/DL 13.7-17.5 L 410) HEMATOCRIT (BEAKER) (test code = 27.9 % 40.1-51.0 L 411) MEAN CORPUSCULAR VOLUME (BEAKER) 95.9 fL 79.0-92.2 H (test code = 753) MEAN CORPUSCULAR HEMOGLOBIN 31.6 pg 25.7-32.2 (BEAKER) (test code = 751) MEAN CORPUSCULAR HEMOGLOBIN CONC 33.0 GM/DL 32.3-36.5 (BEAKER) (test code = 752) RED CELL DISTRIBUTION WIDTH 18.9 % 11.6-14.4 H (BEAKER) (test code = 412) PLATELET COUNT (BEAKER) (test code 88 K/CU MM 150-450 L = 756) MEAN PLATELET VOLUME (BEAKER) 11.5 fL 9.4-12.4 (test code = 754) NUCLEATED RED BLOOD CELLS (BEAKER) 1 /100 WBC 0-0 H (test code = 413) NEUTROPHILS RELATIVE PERCENT 91 % (BEAKER) (test code = 429) LYMPHOCYTES RELATIVE PERCENT 3 % (BEAKER) (test code = 430) MONOCYTES RELATIVE PERCENT 6 % (BEAKER) (test code = 431) EOSINOPHILS RELATIVE PERCENT 0 % (BEAKER) (test code = 432) BASOPHILS RELATIVE PERCENT 0 % (BEAKER) (test code = 437) NEUTROPHILS ABSOLUTE COUNT 8.47 K/ L 1.78-5.38 H (BEAKER) (test code = 670) LYMPHOCYTES ABSOLUTE COUNT 0.23 K/ L 1.32-3.57 L (BEAKER) (test code = 414) MONOCYTES ABSOLUTE COUNT (BEAKER) 0.53 K/ L 0.30-0.82 (test code = 415) EOSINOPHILS ABSOLUTE COUNT 0.00 K/ L 0.04-0.54 L (BEAKER) (test code = 416) BASOPHILS ABSOLUTE COUNT (BEAKER) 0.01 K/ L 0.01-0.08 (test code = 417) IMMATURE GRANULOCYTES-RELATIVE 0 % 0-1 PERCENT (BEAKER) (test code = 2801) [id number] 16:35:00 Test Item Value Reference Range Interpretation Comments ACTIVATED CLOTTING TIME 230 sec TEST ED AT [place] [address] (AKER) (test code = [facility] [place] [address]) [id number] 16:35:00 Test Item Value Reference Range Interpretation Comments ACTIVATED CLOTTING TIME 191 sec TEST ED AT [place] [address] ([facility]) (test code = [facility] [place] [address]) [id number] BLOOD GAS, [id number] 16:20:00 Test Item Value Reference Range Interpretation Comments PH ARTERIAL (BEAKER) (test code = 7.37 7.35-7.45 383) PCO2 ARTERIAL (BEAKER) (test code 29 mm Hg 35-45 L = 384) PO2 ARTERIAL (BEAKER) (test code 590 mm Hg 80-90 H = 385) O2 SATURATION ARTERIAL (BEAKER) 99.9 % 96.0-97.0 H (test code = 386) HCO3 ARTERIAL (BEAKER) (test code 16 mmol/L 21-29 L = 388) BASE EXCESS ARTERIAL (BEAKER) -7.3 mmol/L -2.0-3.0 L (test code = 387) PATIENT TEMPERATURE (BEAKER) 37.0 (test code = 1818) FIO2 (BEAKER) (test code = 1819) 100 BLOOD GAS, [id number] 16:19:00 Test Item Value Reference Range Interpretation Comments PH ARTERIAL (BEAKER) (test code = 7.37 7.35-7.45 383) PCO2 ARTERIAL (BEAKER) (test code 27 mmHg 35-45 L = 384) PO2 ARTERIAL (BEAKER) (test code 426 mmHg 80-90 H = 385) O2 SATURATION ARTERIAL (BEAKER) 99.8 % 96.0-97.0 H (test code = 386) HCO3 ARTERIAL (BEAKER) (test code 15 mmol/L 21-29 L = 388) BASE EXCESS ARTERIAL (BEAKER) -9.1 mmol/L -2.0-3.0 L (test code = 387) PATIENT TEMPERATURE (BEAKER) 37.0 C (test code = 1818) FIO2 (BEAKER) (test code = 1819) 100.0 % Sample drawn from ECMO circuitLACTIC ACID, ARTERIAL, WHOLE [id number] 14:07:00 Test Item Value Reference Range Interpretation Comments LACTATE BLOOD 13.1 mmol/L 0.5-2.2 H Specimen sligh tly ARTERIAL (2) (BEAKER) hemoly zed (test code = 2874) Effective 01/04/2016: Units/Reference Range ChangeNew: 0.5-2.2 mmol/L Previous: 5-20 mg/dLPROTHROMBIN [id number] 14:01:00 Test Item Value Reference Range Interpretation Comments PROTIME (BEAKER) (test code = 20.9 seconds 11.7-14.7 H 759) INR (BEAKER) (test code = 370) 1.8 <=5.9 RECOMMENDED COUMADIN/WARFARIN INR THERAPY RANGESSTANDARD DOSE: 2.0 - 3.0 Includes: PROPHYLAXIS forvenous thrombosis, systemic embolization; TREATMENT for venous thrombosis and/or pulmonary embolus.HIGH RISK: Target INR is 2.5-3.5 for patients with mechanical heart valves.[id number] 14:01:00 Test Item Value Reference Range Interpretation Comments FIBRINOGEN LEVEL (BEAKER) (test 227 mg/dl 225-434 code = 658) PLATELET [id number] 13:54:00 Test Item Value Reference Range Interpretation Comments PLATELET COUNT (BEAKER) (test 115 K/CU MM 150-450 L code = 756) BLOOD GAS, [id number] 13:47:00 Test Item Value Reference Range Interpretation Comments PH ARTERIAL (BEAKER) (test code = 7.26 7.35-7.45 L 383) PCO2 ARTERIAL (BEAKER) (test code 39 mmHg 35-45 = 384) PO2 ARTERIAL (BEAKER) (test code 180 mmHg 80-90 H = 385) O2 SATURATION ARTERIAL (BEAKER) 99.0 % 96.0-97.0 H (test code = 386) HCO3 ARTERIAL (BEAKER) (test code 17 mmol/L 21-29 L = 388) BASE EXCESS ARTERIAL (BEAKER) -9.0 mmol/L -2.0-3.0 L (test code = 387) PATIENT TEMPERATURE (BEAKER) 37.1 C (test code = 1818) FIO2 (BEAKER) (test code = 1819) 40.0 % GLUCOSE-STAT [id number] 13:47:00 Test Item Value Reference Range Interpretation Comments GLUCOSE RANDOM (BEAKER) (test code 134 mg/dL 70-110 H = 652) [id number] 12:33:00 Test Item Value Reference Range Interpretation Comments POTASSIUM (BEAKER) (test code = 5.6 meq/L 3.5-5.1 H 379) PRN - repeat glucose levels every 1 hour or as specified by insulin titration orders until glucose level is less than 450 mg/[id number] 12:33:00 Test Item Value Reference Range Interpretation Comments GLUCOSE RANDOM (BEAKER) (test code = 43 mg/dL 70-105 L 652) PRN - repeat glucose levels every 1 hour or as specified by insulin titration orders until glucose level is less than 450 mg/dLBASIC METABOLIC [id number] 11:05:00 Test Item Value Reference Range Interpretation Comments SODIUM (BEAKER) 144 meq/L 136-145 (test code = 381) POTASSIUM (BEAKER) 5.9 meq/L 3.5-5.1 H (test code = 379) CHLORIDE (BEAKER) 107 meq/L 98-107 (test code = 382) CO2 (BEAKER) (test 19 meq/L 22-29 L code = 355) BLOOD UREA NITROGEN 26 mg/dL 7-21 H (BEAKER) (test code = 354) CREATININE (BEAKER) 3.68 mg/dL 0.57-1.25 H (test code = 358) GLUCOSE RANDOM 34 mg/dL 70-105 LL (BEAKER) (test code = 652) CALCIUM (BEAKER) 9.5 mg/dL 8.4-10.2 (test code = 697) EGFR (BEAKER) (test 21 mL/min/1.73 ESTIMA JAYLA GFR IS code = 1092) sq m NOT ACCURATE CREATININE CLEARANCE IN PREDICTING GLOMERULAR FILTRATION RATE . ESTIMATED GFR I S NOT APPLICABLE FOR DIALYSIS PATIEN TS. PRN - repeat glucose levels every 1 hour or as specified by insulin titration orders until glucose level is less than 450 mg/dLPRN - repeat potassium levels every 1 hour until glucose level is less than 450 mg/[id number] 11:05:00 Test Item Value Reference Range Interpretation Comments GLUCOSE RANDOM (BEAKER) (test code = 34 mg/dL 70-105 LL 652) [id number] 10:44:00 Test Item Value Reference Range Interpretation Comments POTASSIUM (BEAKER) (test code = 5.9 meq/L 3.5-5.1 H 379) HEPATIC FUNCTION [id number] 10:44:00 Test Item Value Reference Range Interpretation Comments TOTAL PROTEIN (BEAKER) (test code = 5.5 gm/dL 6.0-8.3 L 770) ALBUMIN (BEAKER) (test code = 1145) 2.8 g/dL 3.5-5.0 L BILIRUBIN TOTAL (BEAKER) (test code 2.3 mg/dL 0.2-1.2 H = 377) BILIRUBIN DIRECT (BEAKER) (test 1.6 mg/dL 0.1-0.5 H code = 706) ALKALINE PHOSPHATASE (BEAKER) (test 50 U/L 40-150 code = 346) AST (SGOT) (BEAKER) (test code = 856 U/L 5-34 H 353) ALT (SGPT) (BEAKER) (test code = 420 U/L 6-55 H 347) PRN - repeat glucose levels every 1 hour or as specified by insulin titration orders until glucose level is less than 450 mg/dLPRN - repeat potassium levels every 1 hour until glucose level is less than 450 mg/dLPROTHROMBIN TIME/INR 2018-01-11 10:43:00 Test Item Value Reference Range Interpretation Comments PROTIME (BEAKER) (test code = 19.5 seconds 11.7-14.7 H 759) INR (BEAKER) (test code = 370) 1.7 <=5.9 RECOMMENDED COUMADIN/WARFARIN INR THERAPY RANGESSTANDARD DOSE: 2.0 - 3.0 Includes: PROPHYLAXIS forvenous thrombosis, systemic embolization; TREATMENT for venous thrombosis and/or pulmonary embolus.HIGH RISK: Target INR is 2.5-3.5 for patients with mechanical heart valves.LACTIC ACID, ARTERIAL, WHOLE BLOOD 2018-01-11 10:38:00 Test Item Value Reference Range Interpretation Comments LACTATE BLOOD 13.1 mmol/L 0.5-2.2 H Specimen sligh tly ARTERIAL (2) (BEAKER) hemoly zed (test code = 2874) Effective 01/04/2016: Units/Reference Range ChangeNew: 0.5-2.2 mmol/L Previous: 5-20 mg/dLCBC W/PLT COUNT & AUTO [id number] 10:23:00 Test Item Value Reference Range Interpretation Comments WHITE BLOOD CELL COUNT (BEAKER) 10.3 K/ L 3.5-10.5 (test code = 775) RED BLOOD CELL COUNT (BEAKER) 3.75 M/ L 4.63-6.08 L (test code = 761) HEMOGLOBIN (BEAKER) (test code = 11.8 GM/DL 13.7-17.5 L 410) HEMATOCRIT (BEAKER) (test code = 36.6 % 40.1-51.0 L 411) MEAN CORPUSCULAR VOLUME (BEAKER) 97.6 fL 79.0-92.2 H (test code = 753) MEAN CORPUSCULAR HEMOGLOBIN 31.5 pg 25.7-32.2 (BEAKER) (test code = 751) MEAN CORPUSCULAR HEMOGLOBIN CONC 32.2 GM/DL 32.3-36.5 L (BEAKER) (test code = 752) RED CELL DISTRIBUTION WIDTH 19.2 % 11.6-14.4 H (BEAKER) (test code = 412) PLATELET COUNT (BEAKER) (test 125 K/CU MM 150-450 L code = 756) MEAN PLATELET VOLUME (BEAKER) 10.7 fL 9.4-12.4 (test code = 754) NUCLEATED RED BLOOD CELLS 1 /100 WBC 0-0 H (BEAKER) (test code = 413) NEUTROPHILS RELATIVE PERCENT 86 % (BEAKER) (test code = 429) LYMPHOCYTES RELATIVE PERCENT 4 % (BEAKER) (test code = 430) MONOCYTES RELATIVE PERCENT 9 % (BEAKER) (test code = 431) EOSINOPHILS RELATIVE PERCENT 0 % (BEAKER) (test code = 432) BASOPHILS RELATIVE PERCENT 0 % (BEAKER) (test code = 437) NEUTROPHILS ABSOLUTE COUNT 8.88 K/ L 1.78-5.38 H (BEAKER) (test code = 670) LYMPHOCYTES ABSOLUTE COUNT 0.41 K/ L 1.32-3.57 L (BEAKER) (test code = 414) MONOCYTES ABSOLUTE COUNT (BEAKER) 0.91 K/ L 0.30-0.82 H (test code = 415) EOSINOPHILS ABSOLUTE COUNT 0.00 K/ L 0.04-0.54 L (BEAKER) (test code = 416) BASOPHILS ABSOLUTE COUNT (BEAKER) 0.02 K/ L 0.01-0.08 (test code = 417) IMMATURE GRANULOCYTES-RELATIVE 1 % 0-1 PERCENT (BEAKER) (test code = 2801) BLOOD GAS, [id number] 10:20:00 Test Item Value Reference Range Interpretation Comments PH ARTERIAL (BEAKER) (test code = 7.29 7.35-7.45 L 383) PCO2 ARTERIAL (BEAKER) (test code 40 mmHg 35-45 = 384) PO2 ARTERIAL (BEAKER) (test code 185 mmHg 80-90 H = 385) O2 SATURATION ARTERIAL (BEAKER) 99.1 % 96.0-97.0 H (test code = 386) HCO3 ARTERIAL (BEAKER) (test code 18 mmol/L 21-29 L = 388) BASE EXCESS ARTERIAL (BEAKER) -7.7 mmol/L -2.0-3.0 L (test code = 387) PATIENT TEMPERATURE (BEAKER) 37.3 C (test code = 1818) FIO2 (BEAKER) (test code = 1819) 40.0 % [id number] 09:01:00 Test Item Value Reference Range Interpretation Comments POTASSIUM (BEAKER) (test code = 5.9 meq/L 3.5-5.1 H 379) PRN - repeat glucose levels every 1 hour or as specified by insulin titration orders until glucose level is less than 450 mg/[id number] 09:01:00 Test Item Value Reference Range Interpretation Comments MAGNESIUM (BEAKER) (test code = 1.7 mg/dL 1.6-2.6 627) PRN - repeat glucose levels every 1 hour or as specified by insulin titration orders until glucose level is less than 450 mg/[id number] 09:01:00 Test Item Value Reference Range Interpretation Comments PHOSPHORUS (BEAKER) (test code = 4.7 mg/dL 2.3-4.7 604) PRN - repeat glucose levels every 1 hour or as specified by insulin titration orders until glucose level is less than 450 mg/[id number] 09:01:00 Test Item Value Reference Range Interpretation Comments GLUCOSE RANDOM (BEAKER) (test code = 50 mg/dL 70-105 L 652) PRN - repeat glucose levels every 1 hour or as specified by insulin titration orders until glucose level is less than 450 mg/dLCALCIUM, [id number] 08:47:00 Test Item Value Reference Range Interpretation Comments CALCIUM IONIZED (BEAKER) (test 1.24 mmol/L 1.12-1.27 code = 698) PH, BLOOD (BEAKER) (test code = 7.31 1810) [id number] 08:45:00 Test Item Value Reference Range Interpretation Comments PARTIAL THROMBOPLASTIN TIME 53.7 seconds 22.5-36.0 H (BEAKER) (test code = 760) BLOOD GAS, [id number] 08:41:00 Test Item Value Reference Range Interpretation Comments PH ARTERIAL (BEAKER) (test code = 7.31 7.35-7.45 L 383) PCO2 ARTERIAL (BEAKER) (test code 37 mmHg 35-45 = 384) PO2 ARTERIAL (BEAKER) (test code 192 mmHg 80-90 H = 385) O2 SATURATION ARTERIAL (BEAKER) 99.2 % 96.0-97.0 H (test code = 386) HCO3 ARTERIAL (BEAKER) (test code 18 mmol/L 21-29 L = 388) BASE EXCESS ARTERIAL (BEAKER) -7.6 mmol/L -2.0-3.0 L (test code = 387) PATIENT TEMPERATURE (BEAKER) 37.5 C (test code = 1818) FIO2 (BEAKER) (test code = 1819) 40.0 % PH, [id number] 08:41:00 Test Item Value Reference Range Interpretation Comments PH ARTERIAL (BEAKER) (test code = 383) 7.31 7.35-7.45 L RAD, CHEST, 1 VIEW, NON [id number] 07:31:00Reason for exam:->s/p cardiac surgeryShould this be [...] Xie MDReport VerifiedDate/Time: 01/11/2018 07:31:38 Reading Location: [facility] B1 [id number] Ortho Consult Reading Room BLOOD GAS, ARTERIAL 2018-01-11 06:54:00 Test Item Value Reference Range Interpretation Comments PH ARTERIAL (BEAKER) (test code = 7.28 7.35-7.45 L 383) PCO2 ARTERIAL (BEAKER) (test code 40 mmHg 35-45 = 384) PO2 ARTERIAL (BEAKER) (test code 206 mmHg 80-90 H = 385) O2 SATURATION ARTERIAL (BEAKER) 99.3 % 96.0-97.0 H (test code = 386) HCO3 ARTERIAL (BEAKER) (test code 18 mmol/L 21-29 L = 388) BASE EXCESS ARTERIAL (BEAKER) -7.9 mmol/L -2.0-3.0 L (test code = 387) PATIENT TEMPERATURE (BEAKER) 37.3 C (test code = 1818) FIO2 (BEAKER) (test code = 1819) 40.0 % BASIC METABOLIC [id number] 06:12:00 Test Item Value Reference Range Interpretation Comments SODIUM (BEAKER) 141 meq/L 136-145 (test code = 381) POTASSIUM (BEAKER) 4.7 meq/L 3.5-5.1 (test code = 379) CHLORIDE (BEAKER) 109 meq/L 98-107 H (test code = 382) CO2 (BEAKER) (test 17 meq/L 22-29 L code = 355) BLOOD UREA NITROGEN 31 mg/dL 7-21 H (BEAKER) (test code = 354) CREATININE (BEAKER) 4.41 mg/dL 0.57-1.25 H (test code = 358) GLUCOSE RANDOM 86 mg/dL 70-105 (BEAKER) (test code = 652) CALCIUM (BEAKER) 10.6 mg/dL 8.4-10.2 H (test code = 697) EGFR (BEAKER) (test 17 mL/min/1.73 ESTIMA JAYLA GFR IS code = 1092) sq m NOT ACCURATE CREATININE CLEARANCE IN PREDICTING GLOMERULAR FILTRATION RATE . ESTIMATED GFR I S NOT APPLICABLE FOR DIALYSIS PATIEN TS. POCT-GLUCOSE [id number] 05:58:00 Test Item Value Reference Range Interpretation Comments POC-GLUCOSE METER 121 mg/dL 70-110 H TESTED AT [facility] 6720 (BEAKER) (test code = FOSTER Paul [facility] 1538) [id number] POCT-GLUCOSE [id number] 05:58:00 Test Item Value Reference Range Interpretation Comments POC-GLUCOSE METER 66 mg/dL 70-110 L Will Repea t Test/TESTED (BEAKER) (test code = AT [facility] 6720 [facility] 1538) [facility] 7703 0 [id number] 05:51:00 Test Item Value Reference Range Interpretation Comments PHOSPHORUS (BEAKER) (test code = 3.5 mg/dL 2.3-4.7 604) [id number] 05:51:00 Test Item Value Reference Range Interpretation Comments MAGNESIUM (BEAKER) (test code = 1.9 mg/dL 1.6-2.6 627) BLOOD GAS, [id number] 05:47:00 Test Item Value Reference Range Interpretation Comments PH ARTERIAL (BEAKER) (test code = 7.32 7.35-7.45 L 383) PCO2 ARTERIAL (BEAKER) (test code 40 mmHg 35-45 = 384) PO2 ARTERIAL (BEAKER) (test code 190 mmHg 80-90 H = 385) O2 SATURATION ARTERIAL (BEAKER) 99.2 % 96.0-97.0 H (test code = 386) HCO3 ARTERIAL (BEAKER) (test code 20 mmol/L 21-29 L = 388) BASE EXCESS ARTERIAL (BEAKER) -5.6 mmol/L -2.0-3.0 L (test code = 387) PATIENT TEMPERATURE (BEAKER) 36.6 C (test code = 1818) FIO2 (BEAKER) (test code = 1819) 40.0 % POCT-GLUCOSE [id number] 05:27:00 Test Item Value Reference Range Interpretation Comments POC-GLUCOSE METER 112 mg/dL 70-110 H TESTED AT [facility] 6720 ([facility]) (test code = FOSTER Paul [facility] 1538) [address] POCT-GLUCOSE [id number] 05:27:00 Test Item Value Reference Range Interpretation Comments POC-GLUCOSE METER 106 mg/dL 70-110 TESTED AT [place] [address] ([facility]) (test code = [facility] Humberto [facility] 1538) [address] POCT-GLUCOSE [id number] 05:26:00 Test Item Value Reference Range Interpretation Comments POC-GLUCOSE METER 66 mg/dL 70-110 L TESTED AT [place] [address] ([facility]) (test code = [facility] Humberto [facility] [address] 1538) LACTIC ACID, ARTERIAL, WHOLE [id number] 04:59:00 Test Item Value Reference Range Interpretation Comments LACTATE BLOOD 12.2 mmol/L 0.5-2.2 H Specimen sligh tly ARTERIAL (2) (BEAKER) hemoly zed (test code = 2874) Effective 01/04/2016: Units/Reference Range ChangeNew: 0.5-2.2 mmol/L Previous: 5-20 mg/dLCALCIUM, [id number] 04:57:00 Test Item Value Reference Range Interpretation Comments CALCIUM IONIZED (BEAKER) (test 1.33 mmol/L 1.12-1.27 H code = 698) PH, BLOOD (BEAKER) (test code = 7.30 1810) BLOOD GAS, [id number] 04:57:00 Test Item Value Reference Range Interpretation Comments PH ARTERIAL (BEAKER) (test code = 7.32 7.35-7.45 L 383) PCO2 ARTERIAL (BEAKER) (test code 40 mmHg 35-45 = 384) PO2 ARTERIAL (BEAKER) (test code 193 mmHg 80-90 H = 385) O2 SATURATION ARTERIAL (BEAKER) 99.2 % 96.0-97.0 H (test code = 386) HCO3 ARTERIAL (BEAKER) (test code 20 mmol/L 21-29 L = 388) BASE EXCESS ARTERIAL (BEAKER) -6.0 mmol/L -2.0-3.0 L (test code = 387) PATIENT TEMPERATURE (BEAKER) 35.5 C (test code = 1818) FIO2 (BEAKER) (test code = 1819) 45.0 % OXYGEN SATURATION, [id number] 04:56:00 Test Item Value Reference Range Interpretation Comments O2 SATURATION (MEASURED) (BEAKER) 83.2 % (test code = 1455) CBC W/PLT COUNT & AUTO [id number] 04:56:00 Test Item Value Reference Range Interpretation Comments WHITE BLOOD CELL COUNT (BEAKER) 12.5 K/ L 3.5-10.5 H (test code = 775) RED BLOOD CELL COUNT (BEAKER) 3.79 M/ L 4.63-6.08 L (test code = 761) HEMOGLOBIN (BEAKER) (test code = 12.0 GM/DL 13.7-17.5 L 410) HEMATOCRIT (BEAKER) (test code = 36.8 % 40.1-51.0 L 411) MEAN CORPUSCULAR VOLUME (BEAKER) 97.1 fL 79.0-92.2 H (test code = 753) MEAN CORPUSCULAR HEMOGLOBIN 31.7 pg 25.7-32.2 (BEAKER) (test code = 751) MEAN CORPUSCULAR HEMOGLOBIN CONC 32.6 GM/DL 32.3-36.5 (BEAKER) (test code = 752) RED CELL DISTRIBUTION WIDTH 18.2 % 11.6-14.4 H (BEAKER) (test code = 412) PLATELET COUNT (BEAKER) (test 134 K/CU MM 150-450 L code = 756) MEAN PLATELET VOLUME (BEAKER) 10.9 fL 9.4-12.4 (test code = 754) NUCLEATED RED BLOOD CELLS 0 /100 WBC 0-0 (BEAKER) (test code = 413) NEUTROPHILS RELATIVE PERCENT 89 % (BEAKER) (test code = 429) LYMPHOCYTES RELATIVE PERCENT 2 % (BEAKER) (test code = 430) MONOCYTES RELATIVE PERCENT 8 % (BEAKER) (test code = 431) EOSINOPHILS RELATIVE PERCENT 0 % (BEAKER) (test code = 432) BASOPHILS RELATIVE PERCENT 0 % (BEAKER) (test code = 437) NEUTROPHILS ABSOLUTE COUNT 11.15 K/ L 1.78-5.38 H (BEAKER) (test code = 670) LYMPHOCYTES ABSOLUTE COUNT 0.30 K/ L 1.32-3.57 L (BEAKER) (test code = 414) MONOCYTES ABSOLUTE COUNT (BEAKER) 0.97 K/ L 0.30-0.82 H (test code = 415) EOSINOPHILS ABSOLUTE COUNT 0.01 K/ L 0.04-0.54 L (BEAKER) (test code = 416) BASOPHILS ABSOLUTE COUNT (BEAKER) 0.02 K/ L 0.01-0.08 (test code = 417) IMMATURE GRANULOCYTES-RELATIVE 1 % 0-1 PERCENT (BEAKER) (test code = 2801) CALCIUM, [id number] 03:38:00 Test Item Value Reference Range Interpretation Comments CALCIUM IONIZED (BEAKER) (test 1.32 mmol/L 1.12-1.27 H code = 698) PH, BLOOD (BEAKER) (test code = 7.29 1810) BLOOD GAS, [id number] 03:36:00 Test Item Value Reference Range Interpretation Comments PH ARTERIAL (BEAKER) (test code = 7.31 7.35-7.45 L 383) PCO2 ARTERIAL (BEAKER) (test code 36 mmHg 35-45 = 384) PO2 ARTERIAL (BEAKER) (test code 207 mmHg 80-90 H = 385) O2 SATURATION ARTERIAL (BEAKER) 99.3 % 96.0-97.0 H (test code = 386) HCO3 ARTERIAL (BEAKER) (test code 19 mmol/L 21-29 L = 388) BASE EXCESS ARTERIAL (BEAKER) -7.6 mmol/L -2.0-3.0 L (test code = 387) PATIENT TEMPERATURE (BEAKER) 34.9 C (test code = 1818) FIO2 (BEAKER) (test code = 1819) 50.0 % HGB/HCT (H&H) - STAT [id number] 03:36:00 Test Item Value Reference Range Interpretation Comments HEMOGLOBIN (BEAKER) (test code = 12.5 g/dL 13.0-16.8 L 410) HEMATOCRIT (BEAKER) (test code = 37.0 % 40.0-50.0 L 411) OXYGEN SATURATION, [id number] 03:35:00 Test Item Value Reference Range Interpretation Comments O2 SATURATION (MEASURED) (BEAKER) 80.3 % (test code = 1455) GLUCOSE-STAT [id number] 03:34:00 Test Item Value Reference Range Interpretation Comments GLUCOSE RANDOM (BEAKER) (test code = 91 mg/dL 70-110 652) SODIUM NA-STAT [id number] 03:34:00 Test Item Value Reference Range Interpretation Comments SODIUM (BEAKER) (test code = 381) 137 meq/L 135-148 POTASSIUM-STAT [id number] 03:34:00 Test Item Value Reference Range Interpretation Comments POTASSIUM (BEAKER) (test code = 4.6 meq/L 3.6-5.5 379) BLOOD GAS, [id number] 03:01:00 Test Item Value Reference Range Interpretation Comments PH ARTERIAL (BEAKER) (test code = 7.34 7.35-7.45 L 383) PCO2 ARTERIAL (BEAKER) (test code 37 mmHg 35-45 = 384) PO2 ARTERIAL (BEAKER) (test code 100 mmHg 80-90 H = 385) O2 SATURATION ARTERIAL (BEAKER) 97.8 % 96.0-97.0 H (test code = 386) HCO3 ARTERIAL (BEAKER) (test code 20 mmol/L 21-29 L = 388) BASE EXCESS ARTERIAL (BEAKER) -5.7 mmol/L -2.0-3.0 L (test code = 387) PATIENT TEMPERATURE (BEAKER) 34.6 C (test code = 1818) FIO2 (BEAKER) (test code = 1819) 50.0 % HGB/HCT (H&H) - STAT [id number] 03:01:00 Test Item Value Reference Range Interpretation Comments HEMOGLOBIN (BEAKER) (test code = 12.0 g/dL 13.0-16.8 L 410) HEMATOCRIT (BEAKER) (test code = 35.0 % 40.0-50.0 L 411) POTASSIUM-STAT [id number] 03:00:00 Test Item Value Reference Range Interpretation Comments POTASSIUM (BEAKER) (test code = 5.0 meq/L 3.6-5.5 379) GLUCOSE-STAT [id number] 03:00:00 Test Item Value Reference Range Interpretation Comments GLUCOSE RANDOM (BEAKER) (test code 102 mg/dL 70-110 = 652) SODIUM NA-STAT [id number] 03:00:00 Test Item Value Reference Range Interpretation Comments SODIUM (BEAKER) (test code = 381) 140 meq/L 135-148 LACTIC ACID, ARTERIAL, WHOLE [id number] 01:53:00 Test Item Value Reference Range Interpretation Comments LACTATE BLOOD 9.4 mmol/L 0.5-2.2 H Specimen sligh tly ARTERIAL (2) (BEAKER) hemoly zed (test code = 2874) Effective 01/04/2016: Units/Reference Range ChangeNew: 0.5-2.2 mmol/L Previous: 5-20 mg/dLGLUCOSE-STAT [id number] 01:27:00 Test Item Value Reference Range Interpretation Comments GLUCOSE RANDOM (BEAKER) (test code = 99 mg/dL 70-110 652) BLOOD GAS, [id number] 01:27:00 Test Item Value Reference Range Interpretation Comments PH ARTERIAL (BEAKER) (test code = 7.33 7.35-7.45 L 383) PCO2 ARTERIAL (BEAKER) (test code 37 mmHg 35-45 = 384) PO2 ARTERIAL (BEAKER) (test code 325 mmHg 80-90 H = 385) O2 SATURATION ARTERIAL (BEAKER) 99.7 % 96.0-97.0 H (test code = 386) HCO3 ARTERIAL (BEAKER) (test code 20 mmol/L 21-29 L = 388) BASE EXCESS ARTERIAL (BEAKER) -6.6 mmol/L -2.0-3.0 L (test code = 387) PATIENT TEMPERATURE (BEAKER) 33.9 C (test code = 1818) FIO2 (BEAKER) (test code = 1819) 100.0 % HGB/HCT (H&H) - STAT [id number] 01:27:00 Test Item Value Reference Range Interpretation Comments HEMOGLOBIN (BEAKER) (test code = 12.7 g/dL 13.0-16.8 L 410) HEMATOCRIT (BEAKER) (test code = 37.0 % 40.0-50.0 L 411) SODIUM NA-STAT [id number] 01:26:00 Test Item Value Reference Range Interpretation Comments SODIUM (BEAKER) (test code = 381) 141 meq/L 135-148 POTASSIUM-STAT [id number] 01:26:00 Test Item Value Reference Range Interpretation Comments POTASSIUM (BEAKER) (test code = 3.6 meq/L 3.6-5.5 379) [id number] 00:38:00 Test Item Value Reference Range Interpretation Comments PARTIAL THROMBOPLASTIN TIME 47.4 seconds 22.5-36.0 H (BEAKER) (test code = 760) [id number] 00:35:00 Test Item Value Reference Range Interpretation Comments POTASSIUM (BEAKER) 3.5 meq/L 3.5-5.1 Specimen slightly (test code = 379) hemolyzed CALCIUM, [id number] 00:25:00 Test Item Value Reference Range Interpretation Comments CALCIUM IONIZED (BEAKER) (test 1.43 mmol/L 1.12-1.27 H code = 698) PH, BLOOD (BEAKER) (test code = 7.33 1810) THROMBOELASTOGRAPH (TEG)[id number] 23:05:00 Test Item Value Reference Range Interpretation Comments TEG ACTIVATED CLOTTING TIME 7.2 minutes 4.0-7.0 H (BEAKER) (test code = 1407) TEG FIBRINOGEN ACTIVITY (BEAKER) 67.4 degrees 61.0-73.0 (test code = 1408) TEG PLT. AGGREGATION (BEAKER) 49.8 MM 55.0-65.0 L (test code = 1409) TEG FIBRINOLYSIS (BEAKER) (test 15.1 % 0.0-5.0 H code = 1410) TGH ACTIVATED CLOTTING TIME 6.9 minutes 4.0-7.0 (BEAKER) (test code = 1411) TGH FIBRINOGEN ACTIVITY (BEAKER) 69.4 degrees 61.0-73.0 (test code = 1412) TGH PLT. AGGREGATION (BEAKER) 55.8 MM 55.0-65.0 (test code = 1413) TGH FIBRINOLYSIS (BEAKER) (test 0.0 % 0.0-5.0 code = 1414) RAD, CHEST, 1 VIEW, NON [id number] 22:36:00Reason for exam:->s/p BronchoscopyFINAL REPORT CLINICAL INDICATION: Post bronchoscopy Comparison: Same date [id number] hours There is improved aeration of the right upper lobe. No pneumothorax is present. Hazy opacity in the right upper lobe and in the retrocardiac lower lungs may reflect atelectasis but pneumonitis should be excluded clinically. The cardiomediastinal contours are stable. Support lines are stable. Signed: Kellen Parra MDReport Verified Date/Time: 01/10/2018 22:36:29 Reading Location: [address] Reading Room C METABOLIC [id number] 22:01:00 Test Item Value Reference Range Interpretation Comments SODIUM (BEAKER) 144 meq/L 136-145 (test code = 381) POTASSIUM (BEAKER) 3.9 meq/L 3.5-5.1 Specimen slightly (test code = 379) hemolyzed CHLORIDE (BEAKER) 109 meq/L 98-107 H (test code = 382) CO2 (BEAKER) (test 20 meq/L 22-29 L code = 355) BLOOD UREA NITROGEN 39 mg/dL 7-21 H (BEAKER) (test code = 354) CREATININE (BEAKER) 6.14 mg/dL 0.57-1.25 H Specimen slightly (test code = 358) hemolyzed GLUCOSE RANDOM 105 mg/dL 70-105 (BEAKER) (test code = 652) CALCIUM (BEAKER) 12.8 mg/dL 8.4-10.2 H (test code = 697) EGFR (BEAKER) (test 11 mL/min/1.73 ESTIMA JAYLA GFR IS code = 1092) sq m NOT ACCURATE CREATININE CLEARANCE IN PREDICTING GLOMERULAR FILTRATION RATE . ESTIMATED GFR I S NOT APPLICABLE FOR DIALYSIS PATIEN TS. [id number] 22:00:00 Test Item Value Reference Range Interpretation Comments MAGNESIUM (BEAKER) 2.4 mg/dL 1.6-2.6 Specimen slightly (test code = 627) hemolyzed [id number] 22:00:00 Test Item Value Reference Range Interpretation Comments PHOSPHORUS (BEAKER) 3.2 mg/dL 2.3-4.7 Specimen slightly (test code = 604) hemolyzed LACTIC ACID, ARTERIAL, WHOLE [id number] 21:57:00 Test Item Value Reference Range Interpretation Comments LACTATE BLOOD 10.2 mmol/L 0.5-2.2 H Specimen sligh tly ARTERIAL (2) (BEAKER) hemoly zed (test code = 2874) Effective 01/04/2016: Units/Reference Range ChangeNew: 0.5-2.2 mmol/L Previous: 5-20 mg/dLCBC W/PLT COUNT & AUTO [id number] 21:51:00 Test Item Value Reference Range Interpretation Comments WHITE BLOOD CELL COUNT (BEAKER) 12.9 K/ L 3.5-10.5 H (test code = 775) RED BLOOD CELL COUNT (BEAKER) 2.52 M/ L 4.63-6.08 L (test code = 761) HEMOGLOBIN (BEAKER) (test code = 8.0 GM/DL 13.7-17.5 L 410) HEMATOCRIT (BEAKER) (test code = 24.9 % 40.1-51.0 L 411) MEAN CORPUSCULAR VOLUME (BEAKER) 98.8 fL 79.0-92.2 H (test code = 753) MEAN CORPUSCULAR HEMOGLOBIN 31.7 pg 25.7-32.2 (BEAKER) (test code = 751) MEAN CORPUSCULAR HEMOGLOBIN CONC 32.1 GM/DL 32.3-36.5 L (BEAKER) (test code = 752) RED CELL DISTRIBUTION WIDTH 17.2 % 11.6-14.4 H (BEAKER) (test code = 412) PLATELET COUNT (BEAKER) (test 150 K/CU MM 150-450 code = 756) MEAN PLATELET VOLUME (BEAKER) 9.8 fL 9.4-12.4 (test code = 754) NUCLEATED RED BLOOD CELLS 1 /100 WBC 0-0 H (BEAKER) (test code = 413) NEUTROPHILS RELATIVE PERCENT 85 % (BEAKER) (test code = 429) LYMPHOCYTES RELATIVE PERCENT 9 % (BEAKER) (test code = 430) MONOCYTES RELATIVE PERCENT 6 % (BEAKER) (test code = 431) EOSINOPHILS RELATIVE PERCENT 0 % (BEAKER) (test code = 432) BASOPHILS RELATIVE PERCENT 0 % (BEAKER) (test code = 437) NEUTROPHILS ABSOLUTE COUNT 10.97 K/ L 1.78-5.38 H (BEAKER) (test code = 670) LYMPHOCYTES ABSOLUTE COUNT 1.10 K/ L 1.32-3.57 L (BEAKER) (test code = 414) MONOCYTES ABSOLUTE COUNT (BEAKER) 0.72 K/ L 0.30-0.82 (test code = 415) EOSINOPHILS ABSOLUTE COUNT 0.04 K/ L 0.04-0.54 (BEAKER) (test code = 416) BASOPHILS ABSOLUTE COUNT (BEAKER) 0.01 K/ L 0.01-0.08 (test code = 417) IMMATURE GRANULOCYTES-RELATIVE 1 % 0-1 PERCENT (BEAKER) (test code = 2801) [id number] 21:49:00 Test Item Value Reference Range Interpretation Comments PARTIAL THROMBOPLASTIN TIME 41.2 seconds 22.5-36.0 H (BEAKER) (test code = 760) PROTHROMBIN [id number] 21:48:00 Test Item Value Reference Range Interpretation Comments PROTIME (BEAKER) (test code = 19.8 seconds 11.7-14.7 H 759) INR (BEAKER) (test code = 370) 1.7 <=5.9 RECOMMENDED COUMADIN/WARFARIN INR THERAPY RANGESSTANDARD DOSE: 2.0 - 3.0 Includes: PROPHYLAXIS forvenous thrombosis, systemic embolization; TREATMENT for venous thrombosis and/or pulmonary embolus.HIGH RISK: Target INR is 2.5-3.5 for patients with mechanical heart valves.[id number] 21:48:00 Test Item Value Reference Range Interpretation Comments FIBRINOGEN LEVEL (BEAKER) (test 221 mg/dl 225-434 L code = 658) CALCIUM, [id number] 21:33:00 Test Item Value Reference Range Interpretation Comments CALCIUM IONIZED (BEAKER) (test 1.54 mmol/L 1.12-1.27 H code = 698) PH, BLOOD (BEAKER) (test code = 7.33 1810) OXYGEN SATURATION, [id number] 21:33:00 Test Item Value Reference Range Interpretation Comments O2 SATURATION (MEASURED) (BEAKER) 67.1 % (test code = 1455) GLUCOSE-STAT [id number] 21:32:00 Test Item Value Reference Range Interpretation Comments GLUCOSE RANDOM (BEAKER) (test code = 98 mg/dL 70-110 652) SODIUM NA-STAT [id number] 21:32:00 Test Item Value Reference Range Interpretation Comments SODIUM (BEAKER) (test code = 381) 139 meq/L 135-148 POTASSIUM-STAT [id number] 21:32:00 Test Item Value Reference Range Interpretation Comments POTASSIUM (BEAKER) (test code = 3.6 meq/L 3.6-5.5 379) BLOOD GAS, [id number] 21:32:00 Test Item Value Reference Range Interpretation Comments PH ARTERIAL (BEAKER) (test code = 7.33 7.35-7.45 L 383) PCO2 ARTERIAL (BEAKER) (test code 44 mmHg 35-45 = 384) PO2 ARTERIAL (BEAKER) (test code 98 mmHg 80-90 H = 385) O2 SATURATION ARTERIAL (BEAKER) 97.1 % 96.0-97.0 H (test code = 386) HCO3 ARTERIAL (BEAKER) (test code 23 mmol/L 21-29 = 388) BASE EXCESS ARTERIAL (BEAKER) -3.1 mmol/L -2.0-3.0 L (test code = 387) PATIENT TEMPERATURE (BEAKER) 36.6 C (test code = 1818) FIO2 (BEAKER) (test code = 1819) 60.0 % HGB/HCT (H&H) - STAT [id number] 21:32:00 Test Item Value Reference Range Interpretation Comments HEMOGLOBIN (BEAKER) (test code = 8.2 g/dL 13.0-16.8 L 410) HEMATOCRIT (BEAKER) (test code = 24.0 % 40.0-50.0 L 411) RAD, CHEST, 1 VIEW, NON [id number] 21:32:00Reason for exam:->s/p cardiac surgeryShould this be [...] the level of the clavicles. Right IJ [place]-Moni catheter terminatesin the distal right pulmonary artery. The soft tissues and osseous structures are intact. IMPRESSION: Postoperative changes with right upper lobe collapse, likely secondary to mucous plugging. Supporting lines and tubes as described above. Note position of the [place]-Moni catheter. Signed: Moiz Musaeport Verified Date/Time: 01/10/2018 21:32:31 Reading Location: [facility] B1 [id number] Consult Reading Room THROMBOELASTOGRAPH (TEG)2018-01-10 21:01:00 Test Item Value Reference Range Interpretation Comments TEG ACTIVATED CLOTTING TIME 19.1 minutes 4.0-7.0 H (BEAKER) (test code = 1407) TEG FIBRINOGEN ACTIVITY (BEAKER) 45.3 degrees 61.0-73.0 L (test code = 1408) TEG PLT. AGGREGATION (BEAKER) 42.1 MM 55.0-65.0 L (test code = 1409) TGH ACTIVATED CLOTTING TIME 12.9 minutes 4.0-7.0 H (BEAKER) (test code = 1411) TGH FIBRINOGEN ACTIVITY (BEAKER) 24.6 degrees 61.0-73.0 L (test code = 1412) TGH PLT. AGGREGATION (BEAKER) 40.1 MM 55.0-65.0 L (test code = 1413) CALCIUM, [id number] 20:42:00 Test Item Value Reference Range Interpretation Comments CALCIUM IONIZED (BEAKER) (test 1.41 mmol/L 1.12-1.27 H code = 698) PH, BLOOD (BEAKER) (test code = 7.41 1810) SODIUM NA-STAT [id number] 20:41:00 Test Item Value Reference Range Interpretation Comments SODIUM (BEAKER) (test code = 381) 138 meq/L 135-148 POTASSIUM-STAT [id number] 20:41:00 Test Item Value Reference Range Interpretation Comments POTASSIUM (BEAKER) (test code = 3.7 meq/L 3.6-5.5 379) BLOOD GAS, [id number] 20:41:00 Test Item Value Reference Range Interpretation Comments PH ARTERIAL (BEAKER) (test code = 7.41 7.35-7.45 383) PCO2 ARTERIAL (BEAKER) (test code 32 mmHg 35-45 L = 384) PO2 ARTERIAL (BEAKER) (test code 153 mmHg 80-90 H = 385) O2 SATURATION ARTERIAL (BEAKER) 99.1 % 96.0-97.0 H (test code = 386) HCO3 ARTERIAL (BEAKER) (test code 21 mmol/L 21-29 = 388) BASE EXCESS ARTERIAL (BEAKER) -4.2 mmol/L -2.0-3.0 L (test code = 387) PATIENT TEMPERATURE (BEAKER) 32.0 C (test code = 1818) FIO2 (BEAKER) (test code = 1819) 100.0 % GLUCOSE-STAT [id number] 20:41:00 Test Item Value Reference Range Interpretation Comments GLUCOSE RANDOM (BEAKER) (test code 120 mg/dL 70-110 H = 652) HGB/HCT (H&H) - STAT [id number] 20:41:00 Test Item Value Reference Range Interpretation Comments HEMOGLOBIN (BEAKER) (test code = 7.8 g/dL 13.0-16.8 L 410) HEMATOCRIT (BEAKER) (test code = 23.0 % 40.0-50.0 L 411) [id number] 20:23:00 Test Item Value Reference Range Interpretation Comments FIBRINOGEN LEVEL (BEAKER) (test 239 mg/dl 225-434 code = 658) [id number] 20:23:00 Test Item Value Reference Range Interpretation Comments PARTIAL THROMBOPLASTIN TIME 38.6 seconds 22.5-36.0 H (BEAKER) (test code = 760) PROTHROMBIN [id number] 20:22:00 Test Item Value Reference Range Interpretation Comments PROTIME (BEAKER) (test code = 21.6 seconds 11.7-14.7 H 759) INR (BEAKER) (test code = 370) 1.9 <=5.9 RECOMMENDED COUMADIN/WARFARIN INR THERAPY RANGESSTANDARD DOSE: 2.0 - 3.0 Includes: PROPHYLAXIS forvenous thrombosis, systemic embolization; TREATMENT for venous thrombosis and/or pulmonary embolus.HIGH RISK: Target INR is 2.5-3.5 for patients with mechanical heart valves.[id number] 20:16:00 Test Item Value Reference Range Interpretation Comments ACTIVATED CLOTTING TIME 114 sec TEST ED AT [facility] 67 (BEAKER) (test code = [place] [address]) [id number] 20:16:00 Test Item Value Reference Range Interpretation Comments ACTIVATED CLOTTING TIME 499 sec TEST ED AT [place] [address] ([facility]) (test code = [place] [address]) [id number] 20:16:00 Test Item Value Reference Range Interpretation Comments ACTIVATED CLOTTING TIME 483 sec TEST ED AT [place] [address] ([facility]) (test code = [place] [address]) [address] [id number] 20:16:00 Test Item Value Reference Range Interpretation Comments ACTIVATED CLOTTING TIME 538 sec TEST ED AT [place] [address] ([facility]) (test code = [place] [address]) [address] [id number] 20:16:00 Test Item Value Reference Range Interpretation Comments ACTIVATED CLOTTING TIME 615 sec TEST ED AT [place] [address] ([facility]) (test code = [place] [address]) [address] [id number] 20:16:00 Test Item Value Reference Range Interpretation Comments ACTIVATED CLOTTING TIME 692 sec TEST ED AT [place] [address] ([facility]) (test code = [place] [address]) [address] [id number] 20:16:00 Test Item Value Reference Range Interpretation Comments ACTIVATED CLOTTING TIME 428 sec TEST ED AT [place] [address] ([facility]) (test code = [place] [address]) [address] [id number] 20:16:00 Test Item Value Reference Range Interpretation Comments ACTIVATED CLOTTING TIME 373 sec TEST ED AT [place] [address] ([facility]) (test code = [place] [address]) [address] [id number] 20:16:00 Test Item Value Reference Range Interpretation Comments ACTIVATED CLOTTING TIME 455 sec TEST ED AT [place] [address] ([facility]) (test code = [place] [address]) [address] [id number] 20:16:00 Test Item Value Reference Range Interpretation Comments ACTIVATED CLOTTING TIME 494 sec TEST ED AT [place] [address] ([facility]) (test code = [place] [address]) [address] [id number] 20:16:00 Test Item Value Reference Range Interpretation Comments ACTIVATED CLOTTING TIME 527 sec TEST ED AT [place] [address] ([facility]) (test code = [place] [address]) [address] [id number] 20:16:00 Test Item Value Reference Range Interpretation Comments ACTIVATED CLOTTING TIME 610 sec TEST ED AT [place] [address] ([facility]) (test code = [place] [address]) [address] [id number] 20:16:00 Test Item Value Reference Range Interpretation Comments ACTIVATED CLOTTING TIME 576 sec TEST ED AT [place] [address] ([facility]) (test code = [place] [address]) [address] [id number] 20:16:00 Test Item Value Reference Range Interpretation Comments ACTIVATED CLOTTING TIME 384 sec TEST ED AT [place] [address] ([facility]) (test code = [place] [address]) [address] PLATELET [id number] 20:08:00 Test Item Value Reference Range Interpretation Comments PLATELET COUNT (BEAKER) (test code 47 K/CU MM 150-450 L = 756) THROMBOELASTOGRAPH (TEG)2018-01-10 20:00:00 Test Item Value Reference Range Interpretation Comments TEG ACTIVATED CLOTTING minutes 4.0-7.0 No cl ot detected TIME (BEAKER) (test code = 1407) [facility] ACTIVATED CLOTTING 9.2 minutes 4.0-7.0 H TIME (BEAKER) (test code = 1411) [facility] FIBRINOGEN ACTIVITY 51.1 degrees 61.0-73.0 L (BEAKER) (test code = 1412) [facility] PLT. AGGREGATION 41.9 MM 55.0-65.0 L (BEAKER) (test code = 1413) [facility] FIBRINOLYSIS 0.0 % 0.0-5.0 (BEAKER) (test code = 1414) CALCIUM, [id number] 19:59:00 Test Item Value Reference Range Interpretation Comments CALCIUM IONIZED (BEAKER) (test 1.39 mmol/L 1.12-1.27 H code = 698) PH, BLOOD (BEAKER) (test code = 7.37 1810) BLOOD GAS, [id number] 19:58:00 Test Item Value Reference Range Interpretation Comments PH ARTERIAL (BEAKER) (test code = 7.39 7.35-7.45 383) PCO2 ARTERIAL (BEAKER) (test code 35 mmHg 35-45 = 384) PO2 ARTERIAL (BEAKER) (test code 304 mmHg 80-90 H = 385) O2 SATURATION ARTERIAL (BEAKER) 99.7 % 96.0-97.0 H (test code = 386) HCO3 ARTERIAL (BEAKER) (test code 21 mmol/L 21-29 = 388) BASE EXCESS ARTERIAL (BEAKER) -3.8 mmol/L -2.0-3.0 L (test code = 387) PATIENT TEMPERATURE (BEAKER) 36.0 C (test code = 1818) FIO2 (BEAKER) (test code = 1819) 100.0 % GLUCOSE-STAT [id number] 19:58:00 Test Item Value Reference Range Interpretation Comments GLUCOSE RANDOM (BEAKER) (test code 143 mg/dL 70-110 H = 652) HGB/HCT (H&H) - STAT [id number] 19:58:00 Test Item Value Reference Range Interpretation Comments HEMOGLOBIN (BEAKER) (test code = 8.7 g/dL 13.0-16.8 L 410) HEMATOCRIT (BEAKER) (test code = 26.0 % 40.0-50.0 L 411) SODIUM NA-STAT [id number] 19:57:00 Test Item Value Reference Range Interpretation Comments SODIUM (BEAKER) (test code = 381) 140 meq/L 135-148 POTASSIUM-STAT [id number] 19:57:00 Test Item Value Reference Range Interpretation Comments POTASSIUM (BEAKER) (test code = 3.9 meq/L 3.6-5.5 379) [id number] 19:29:00 Test Item Value Reference Range Interpretation Comments PARTIAL THROMBOPLASTIN TIME > seconds 22.5-36.0 HH (BEAKER) (test code = 760) [id number] 19:16:00 Test Item Value Reference Range Interpretation Comments FIBRINOGEN LEVEL (BEAKER) (test 271 mg/dl 225-434 code = 658) PROTHROMBIN [id number] 19:15:00 Test Item Value Reference Range Interpretation Comments PROTIME (BEAKER) (test code = 21.3 seconds 11.7-14.7 H 759) INR (BEAKER) (test code = 370) 1.8 <=5.9 RECOMMENDED COUMADIN/WARFARIN INR THERAPY RANGESSTANDARD DOSE: 2.0 - 3.0 Includes: PROPHYLAXIS forvenous thrombosis, systemic embolization; TREATMENT for venous thrombosis and/or pulmonary embolus.HIGH RISK: Target INR is 2.5-3.5 for patients with mechanical heart valves.PLATELET [id number] 19:06:00 Test Item Value Reference Range Interpretation Comments PLATELET COUNT (BEAKER) (test code 54 K/CU MM 150-450 L = 756) BLOOD GAS, [id number] 18:49:00 Test Item Value Reference Range Interpretation Comments PH ARTERIAL (BEAKER) (test code = 7.46 7.35-7.45 H 383) PCO2 ARTERIAL (BEAKER) (test code 32 mmHg 35-45 L = 384) PO2 ARTERIAL (BEAKER) (test code 228 mmHg 80-90 H = 385) O2 SATURATION ARTERIAL (BEAKER) 99.6 % 96.0-97.0 H (test code = 386) HCO3 ARTERIAL (BEAKER) (test code 23 mmol/L 21-29 = 388) BASE EXCESS ARTERIAL (BEAKER) -1.0 mmol/L -2.0-3.0 (test code = 387) PATIENT TEMPERATURE (BEAKER) 34.0 C (test code = 1818) FIO2 (BEAKER) (test code = 1819) 100.0 % HGB/HCT (H&H) - STAT [id number] 18:44:00 Test Item Value Reference Range Interpretation Comments HEMOGLOBIN (BEAKER) (test code = 10.1 g/dL 13.0-16.8 L 410) HEMATOCRIT (BEAKER) (test code = 30.0 % 40.0-50.0 L 411) SODIUM NA-STAT [id number] 18:43:00 Test Item Value Reference Range Interpretation Comments SODIUM (BEAKER) (test code = 381) 137 meq/L 135-148 POTASSIUM-STAT [id number] 18:43:00 Test Item Value Reference Range Interpretation Comments POTASSIUM (BEAKER) (test code = 5.0 meq/L 3.6-5.5 379) GLUCOSE-STAT [id number] 18:43:00 Test Item Value Reference Range Interpretation Comments GLUCOSE RANDOM (BEAKER) (test code 187 mg/dL 70-110 H = 652) SODIUM NA-STAT [id number] 18:22:00 Test Item Value Reference Range Interpretation Comments SODIUM (BEAKER) (test code = 381) 140 meq/L 135-148 POTASSIUM-STAT [id number] 18:22:00 Test Item Value Reference Range Interpretation Comments POTASSIUM (BEAKER) (test code = 4.7 meq/L 3.6-5.5 379) BLOOD GAS, [id number] 18:22:00 Test Item Value Reference Range Interpretation Comments PH ARTERIAL (BEAKER) (test code = 7.38 7.35-7.45 383) PCO2 ARTERIAL (BEAKER) (test code 43 mmHg 35-45 = 384) PO2 ARTERIAL (BEAKER) (test code 282 mmHg 80-90 H = 385) O2 SATURATION ARTERIAL (BEAKER) 99.6 % 96.0-97.0 H (test code = 386) HCO3 ARTERIAL (BEAKER) (test code 26 mmol/L 21-29 = 388) BASE EXCESS ARTERIAL (BEAKER) -0.8 mmol/L -2.0-3.0 (test code = 387) PATIENT TEMPERATURE (BEAKER) 30.7 C (test code = 1818) FIO2 (BEAKER) (test code = 1819) 60.0 % GLUCOSE-STAT [id number] 18:22:00 Test Item Value Reference Range Interpretation Comments GLUCOSE RANDOM (BEAKER) (test code 209 mg/dL 70-110 H = 652) HGB/HCT (H&H) - STAT [id number] 18:22:00 Test Item Value Reference Range Interpretation Comments HEMOGLOBIN (BEAKER) (test code = 10.2 g/dL 13.0-16.8 L 410) HEMATOCRIT (BEAKER) (test code = 30.0 % 40.0-50.0 L 411) BLOOD GAS, [id number] 17:57:00 Test Item Value Reference Range Interpretation Comments PH ARTERIAL (BEAKER) (test code = 7.37 7.35-7.45 383) PCO2 ARTERIAL (BEAKER) (test code 41 mmHg 35-45 = 384) PO2 ARTERIAL (BEAKER) (test code 336 mmHg 80-90 H = 385) O2 SATURATION ARTERIAL (BEAKER) 99.7 % 96.0-97.0 H (test code = 386) HCO3 ARTERIAL (BEAKER) (test code 26 mmol/L 21-29 = 388) BASE EXCESS ARTERIAL (BEAKER) -2.3 mmol/L -2.0-3.0 L (test code = 387) PATIENT TEMPERATURE (BEAKER) 28.5 C (test code = 1818) FIO2 (BEAKER) (test code = 1819) 65.0 % GLUCOSE-STAT [id number] 17:57:00 Test Item Value Reference Range Interpretation Comments GLUCOSE RANDOM (BEAKER) (test code 198 mg/dL 70-110 H = 652) HGB/HCT (H&H) - STAT [id number] 17:57:00 Test Item Value Reference Range Interpretation Comments HEMOGLOBIN (BEAKER) (test code = 10.3 g/dL 13.0-16.8 L 410) HEMATOCRIT (BEAKER) (test code = 30.0 % 40.0-50.0 L 411) SODIUM NA-STAT [id number] 17:56:00 Test Item Value Reference Range Interpretation Comments SODIUM (BEAKER) (test code = 381) 138 meq/L 135-148 POTASSIUM-STAT [id number] 17:56:00 Test Item Value Reference Range Interpretation Comments POTASSIUM (BEAKER) (test code = 4.7 meq/L 3.6-5.5 379) BLOOD GAS, [id number] 17:28:00 Test Item Value Reference Range Interpretation Comments PH ARTERIAL (BEAKER) (test code = 7.37 7.35-7.45 383) PCO2 ARTERIAL (BEAKER) (test code 40 mmHg 35-45 = 384) PO2 ARTERIAL (BEAKER) (test code 337 mmHg 80-90 H = 385) O2 SATURATION ARTERIAL (BEAKER) 99.7 % 96.0-97.0 H (test code = 386) HCO3 ARTERIAL (BEAKER) (test code 25 mmol/L 21-29 = 388) BASE EXCESS ARTERIAL (BEAKER) -2.5 mmol/L -2.0-3.0 L (test code = 387) PATIENT TEMPERATURE (BEAKER) 28.2 C (test code = 1818) FIO2 (BEAKER) (test code = 1819) 65.0 % GLUCOSE-STAT [id number] 17:28:00 Test Item Value Reference Range Interpretation Comments GLUCOSE RANDOM (BEAKER) (test code 223 mg/dL 70-110 H = 652) HGB/HCT (H&H) - STAT [id number] 17:28:00 Test Item Value Reference Range Interpretation Comments HEMOGLOBIN (BEAKER) (test code = 10.1 g/dL 13.0-16.8 L 410) HEMATOCRIT (BEAKER) (test code = 30.0 % 40.0-50.0 L 411) SODIUM NA-STAT [id number] 17:27:00 Test Item Value Reference Range Interpretation Comments SODIUM (BEAKER) (test code = 381) 140 meq/L 135-148 POTASSIUM-STAT [id number] 17:27:00 Test Item Value Reference Range Interpretation Comments POTASSIUM (BEAKER) (test code = 4.8 meq/L 3.6-5.5 379) THROMBOELASTOGRAPH ([id number] 17:02:00 Test Item Value Reference Range Interpretation Comments TEG ACTIVATED CLOTTING minutes 4.0-7.0 No cl ot detected. TIME (BEAKER) (test code = 1407) TEG FIBRINOGEN ACTIVITY degrees 61.0-73.0 No c lot detected. (BEAKER) (test code = 1408) TEG PLT. AGGREGATION MM 55.0-65.0 No clot detected. (BEAKER) (test code = 1409) TEG FIBRINOLYSIS % 0.0-5.0 No clot det ected. (BEAKER) (test code = 1410) TGH ACTIVATED CLOTTING 8.8 minutes 4.0-7.0 H TIME (BEAKER) (test code = 1411) TGH FIBRINOGEN ACTIVITY 59.5 degrees 61.0-73.0 L (BEAKER) (test code = 1412) TGH PLT. AGGREGATION 54.0 MM 55.0-65.0 L (BEAKER) (test code = 1413) TGH FIBRINOLYSIS 0.0 % 0.0-5.0 (BEAKER) (test code = 1414) HGB/HCT (H&H) - STAT [id number] 17:01:00 Test Item Value Reference Range Interpretation Comments HEMOGLOBIN (BEAKER) (test code = 10.1 g/dL 13.0-16.8 L 410) HEMATOCRIT (BEAKER) (test code = 30.0 % 40.0-50.0 L 411) BLOOD GAS, [id number] 17:00:00 Test Item Value Reference Range Interpretation Comments PH ARTERIAL (BEAKER) (test code = 7.37 7.35-7.45 383) PCO2 ARTERIAL (BEAKER) (test code 39 mmHg 35-45 = 384) PO2 ARTERIAL (BEAKER) (test code 310 mmHg 80-90 H = 385) O2 SATURATION ARTERIAL (BEAKER) 99.7 % 96.0-97.0 H (test code = 386) HCO3 ARTERIAL (BEAKER) (test code 25 mmol/L 21-29 = 388) BASE EXCESS ARTERIAL (BEAKER) -2.9 mmol/L -2.0-3.0 L (test code = 387) PATIENT TEMPERATURE (BEAKER) 28.5 C (test code = 1818) FIO2 (BEAKER) (test code = 1819) 65.0 % GLUCOSE-STAT [id number] 17:00:00 Test Item Value Reference Range Interpretation Comments GLUCOSE RANDOM (BEAKER) (test code 243 mg/dL 70-110 H = 652) SODIUM NA-STAT [id number] 16:59:00 Test Item Value Reference Range Interpretation Comments SODIUM (BEAKER) (test code = 381) 139 meq/L 135-148 POTASSIUM-STAT [id number] 16:59:00 Test Item Value Reference Range Interpretation Comments POTASSIUM (BEAKER) (test code = 4.6 meq/L 3.6-5.5 379) [id number] 16:47:00 Test Item Value Reference Range Interpretation Comments PARTIAL THROMBOPLASTIN TIME > seconds 22.5-36.0 HH (BEAKER) (test code = 760) BLOOD GAS, [id number] 16:18:00 Test Item Value Reference Range Interpretation Comments PH ARTERIAL (BEAKER) (test code = 7.50 7.35-7.45 H 383) PCO2 ARTERIAL (BEAKER) (test code 30 mmHg 35-45 L = 384) PO2 ARTERIAL (BEAKER) (test code = 306 mmHg 80-90 H 385) O2 SATURATION ARTERIAL (BEAKER) 99.8 % 96.0-97.0 H (test code = 386) HCO3 ARTERIAL (BEAKER) (test code 25 mmol/L 21-29 = 388) BASE EXCESS ARTERIAL (BEAKER) 0.0 mmol/L -2.0-3.0 (test code = 387) PATIENT TEMPERATURE (BEAKER) (test 27.9 C code = 1818) FIO2 (BEAKER) (test code = 1819) 65.0 % GLUCOSE-STAT [id number] 16:18:00 Test Item Value Reference Range Interpretation Comments GLUCOSE RANDOM (BEAKER) (test code 279 mg/dL 70-110 H = 652) HGB/HCT (H&H) - STAT [id number] 16:18:00 Test Item Value Reference Range Interpretation Comments HEMOGLOBIN (BEAKER) (test code = 7.0 g/dL 13.0-16.8 L 410) HEMATOCRIT (BEAKER) (test code = 21.0 % 40.0-50.0 L 411) SODIUM NA-STAT [id number] 16:17:00 Test Item Value Reference Range Interpretation Comments SODIUM (BEAKER) (test code = 381) 137 meq/L 135-148 POTASSIUM-STAT [id number] 16:17:00 Test Item Value Reference Range Interpretation Comments POTASSIUM (BEAKER) (test code = 4.6 meq/L 3.6-5.5 379) [id number] 16:15:00 Test Item Value Reference Range Interpretation Comments FIBRINOGEN LEVEL (BEAKER) (test 255 mg/dl 225-434 code = 658) PROTHROMBIN [id number] 16:14:00 Test Item Value Reference Range Interpretation Comments PROTIME (BEAKER) (test code = 20.2 seconds 11.7-14.7 H 759) INR (BEAKER) (test code = 370) 1.7 <=5.9 RECOMMENDED COUMADIN/WARFARIN INR THERAPY RANGESSTANDARD DOSE: 2.0 - 3.0 Includes: PROPHYLAXIS forvenous thrombosis, systemic embolization; TREATMENT for venous thrombosis and/or pulmonary embolus.HIGH RISK: Target INR is 2.5-3.5 for patients with mechanical heart valves.PLATELET [id number] 16:02:00 Test Item Value Reference Range Interpretation Comments PLATELET COUNT (BEAKER) (test code 57 K/CU MM 150-450 L = 756) CALCIUM, [id number] 15:51:00 Test Item Value Reference Range Interpretation Comments CALCIUM IONIZED (BEAKER) (test 0.82 mmol/L 1.12-1.27 L code = 698) PH, BLOOD (BEAKER) (test code = 7.45 1810) BLOOD GAS, [id number] 15:51:00 Test Item Value Reference Range Interpretation Comments PH ARTERIAL (BEAKER) (test code = 7.45 7.35-7.45 383) PCO2 ARTERIAL (BEAKER) (test code 40 mmHg 35-45 = 384) PO2 ARTERIAL (BEAKER) (test code = 336 mmHg 80-90 H 385) O2 SATURATION ARTERIAL (BEAKER) 99.8 % 96.0-97.0 H (test code = 386) HCO3 ARTERIAL (BEAKER) (test code 28 mmol/L 21-29 = 388) BASE EXCESS ARTERIAL (BEAKER) 3.1 mmol/L -2.0-3.0 H (test code = 387) PATIENT TEMPERATURE (BEAKER) (test 35.6 C code = 1818) FIO2 (BEAKER) (test code = 1819) 100.0 % GLUCOSE-STAT [id number] 15:51:00 Test Item Value Reference Range Interpretation Comments GLUCOSE RANDOM (BEAKER) (test code 190 mg/dL 70-110 H = 652) HGB/HCT (H&H) - STAT [id number] 15:51:00 Test Item Value Reference Range Interpretation Comments HEMOGLOBIN (BEAKER) (test code = 7.6 g/dL 13.0-16.8 L 410) HEMATOCRIT (BEAKER) (test code = 22.0 % 40.0-50.0 L 411) POTASSIUM-STAT [id number] 15:51:00 Test Item Value Reference Range Interpretation Comments POTASSIUM (BEAKER) (test code = 5.6 meq/L 3.6-5.5 H 379) SODIUM NA-STAT [id number] 15:50:00 Test Item Value Reference Range Interpretation Comments SODIUM (BEAKER) (test code = 381) 139 meq/L 135-148 BLOOD GAS, [id number] 15:43:00 Test Item Value Reference Range Interpretation Comments PH ARTERIAL (BEAKER) (test code = 7.45 7.35-7.45 383) PCO2 ARTERIAL (BEAKER) (test code 39 mmHg 35-45 = 384) PO2 ARTERIAL (BEAKER) (test code = 315 mmHg 80-90 H 385) O2 SATURATION ARTERIAL (BEAKER) 99.7 % 96.0-97.0 H (test code = 386) HCO3 ARTERIAL (BEAKER) (test code 27 mmol/L 21-29 = 388) BASE EXCESS ARTERIAL (BEAKER) 1.9 mmol/L -2.0-3.0 (test code = 387) PATIENT TEMPERATURE (BEAKER) (test 34.1 C code = 1818) FIO2 (BEAKER) (test code = 1819) 75.0 % GLUCOSE-STAT [id number] 15:43:00 Test Item Value Reference Range Interpretation Comments GLUCOSE RANDOM (BEAKER) (test code 189 mg/dL 70-110 H = 652) HGB/HCT (H&H) - STAT [id number] 15:43:00 Test Item Value Reference Range Interpretation Comments HEMOGLOBIN (BEAKER) (test code = 8.0 g/dL 13.0-16.8 L 410) HEMATOCRIT (BEAKER) (test code = 24.0 % 40.0-50.0 L 411) POTASSIUM-STAT [id number] 15:43:00 Test Item Value Reference Range Interpretation Comments POTASSIUM (BEAKER) (test code = 5.7 meq/L 3.6-5.5 H 379) SODIUM NA-STAT [id number] 15:42:00 Test Item Value Reference Range Interpretation Comments SODIUM (BEAKER) (test code = 381) 136 meq/L 135-148 SODIUM NA-STAT [id number] 15:06:00 Test Item Value Reference Range Interpretation Comments SODIUM (BEAKER) (test code = 381) 139 meq/L 135-148 BLOOD GAS, [id number] 15:06:00 Test Item Value Reference Range Interpretation Comments PH ARTERIAL (BEAKER) (test code = 7.45 7.35-7.45 383) PCO2 ARTERIAL (BEAKER) (test code 40 mmHg 35-45 = 384) PO2 ARTERIAL (BEAKER) (test code = 293 mmHg 80-90 H 385) O2 SATURATION ARTERIAL (BEAKER) 99.7 % 96.0-97.0 H (test code = 386) HCO3 ARTERIAL (BEAKER) (test code 31 mmol/L 21-29 H = 388) BASE EXCESS ARTERIAL (BEAKER) 3.6 mmol/L -2.0-3.0 H (test code = 387) PATIENT TEMPERATURE (BEAKER) (test 26.7 C code = 1818) FIO2 (BEAKER) (test code = 1819) 60.0 % POTASSIUM-STAT [id number] 15:06:00 Test Item Value Reference Range Interpretation Comments POTASSIUM (BEAKER) (test code = 5.8 meq/L 3.6-5.5 H 379) GLUCOSE-STAT [id number] 15:06:00 Test Item Value Reference Range Interpretation Comments GLUCOSE RANDOM (BEAKER) (test code 192 mg/dL 70-110 H = 652) HGB/HCT (H&H) - STAT [id number] 15:06:00 Test Item Value Reference Range Interpretation Comments HEMOGLOBIN (BEAKER) (test code = 8.2 g/dL 13.0-16.8 L 410) HEMATOCRIT (BEAKER) (test code = 24.0 % 40.0-50.0 L 411) POTASSIUM-STAT [id number] 14:41:00 Test Item Value Reference Range Interpretation Comments POTASSIUM (BEAKER) (test code = 5.2 meq/L 3.6-5.5 379) BLOOD GAS, [id number] 14:41:00 Test Item Value Reference Range Interpretation Comments PH ARTERIAL (BEAKER) (test code = 7.43 7.35-7.45 383) PCO2 ARTERIAL (BEAKER) (test code 40 mmHg 35-45 = 384) PO2 ARTERIAL (BEAKER) (test code = 321 mmHg 80-90 H 385) O2 SATURATION ARTERIAL (BEAKER) 99.7 % 96.0-97.0 H (test code = 386) HCO3 ARTERIAL (BEAKER) (test code 29 mmol/L 21-29 = 388) BASE EXCESS ARTERIAL (BEAKER) 2.1 mmol/L -2.0-3.0 (test code = 387) PATIENT TEMPERATURE (BEAKER) (test 26.6 C code = 1818) FIO2 (BEAKER) (test code = 1819) 60.0 % SODIUM NA-STAT [id number] 14:41:00 Test Item Value Reference Range Interpretation Comments SODIUM (BEAKER) (test code = 381) 134 meq/L 135-148 L GLUCOSE-STAT [id number] 14:41:00 Test Item Value Reference Range Interpretation Comments GLUCOSE RANDOM (BEAKER) (test code 195 mg/dL 70-110 H = 652) HGB/HCT (H&H) - STAT [id number] 14:41:00 Test Item Value Reference Range Interpretation Comments HEMOGLOBIN (BEAKER) (test code = 8.2 g/dL 13.0-16.8 L 410) HEMATOCRIT (BEAKER) (test code = 24.0 % 40.0-50.0 L 411) BLOOD GAS, [id number] 14:10:00 Test Item Value Reference Range Interpretation Comments PH ARTERIAL (BEAKER) (test code = 7.41 7.35-7.45 383) PCO2 ARTERIAL (BEAKER) (test code 41 mmHg 35-45 = 384) PO2 ARTERIAL (BEAKER) (test code = 313 mmHg 80-90 H 385) O2 SATURATION ARTERIAL (BEAKER) 99.7 % 96.0-97.0 H (test code = 386) HCO3 ARTERIAL (BEAKER) (test code 29 mmol/L 21-29 = 388) BASE EXCESS ARTERIAL (BEAKER) 1.4 mmol/L -2.0-3.0 (test code = 387) PATIENT TEMPERATURE (BEAKER) (test 27.0 C code = 1818) FIO2 (BEAKER) (test code = 1819) 60.0 % GLUCOSE-STAT [id number] 14:10:00 Test Item Value Reference Range Interpretation Comments GLUCOSE RANDOM (BEAKER) (test code 177 mg/dL 70-110 H = 652) HGB/HCT (H&H) - STAT [id number] 14:10:00 Test Item Value Reference Range Interpretation Comments HEMOGLOBIN (BEAKER) (test code = 8.5 g/dL 13.0-16.8 L 410) HEMATOCRIT (BEAKER) (test code = 25.0 % 40.0-50.0 L 411) SODIUM NA-STAT [id number] 14:09:00 Test Item Value Reference Range Interpretation Comments SODIUM (BEAKER) (test code = 381) 136 meq/L 135-148 POTASSIUM-STAT [id number] 14:09:00 Test Item Value Reference Range Interpretation Comments POTASSIUM (BEAKER) (test code = 5.0 meq/L 3.6-5.5 379) SODIUM NA-STAT [id number] 13:39:00 Test Item Value Reference Range Interpretation Comments SODIUM (BEAKER) (test code = 381) 136 meq/L 135-148 POTASSIUM-STAT [id number] 13:39:00 Test Item Value Reference Range Interpretation Comments POTASSIUM (BEAKER) (test code = 5.0 meq/L 3.6-5.5 379) BLOOD GAS, [id number] 13:39:00 Test Item Value Reference Range Interpretation Comments PH ARTERIAL (BEAKER) (test code = 7.46 7.35-7.45 H 383) PCO2 ARTERIAL (BEAKER) (test code 37 mmHg 35-45 = 384) PO2 ARTERIAL (BEAKER) (test code = 246 mmHg 80-90 H 385) O2 SATURATION ARTERIAL (BEAKER) 99.6 % 96.0-97.0 H (test code = 386) HCO3 ARTERIAL (BEAKER) (test code 29 mmol/L 21-29 = 388) BASE EXCESS ARTERIAL (BEAKER) 1.7 mmol/L -2.0-3.0 (test code = 387) PATIENT TEMPERATURE (BEAKER) (test 26.5 C code = 1818) FIO2 (BEAKER) (test code = 1819) 60.0 % GLUCOSE-STAT [id number] 13:39:00 Test Item Value Reference Range Interpretation Comments GLUCOSE RANDOM (BEAKER) (test code 179 mg/dL 70-110 H = 652) HGB/HCT (H&H) - STAT [id number] 13:39:00 Test Item Value Reference Range Interpretation Comments HEMOGLOBIN (BEAKER) (test code = 8.1 g/dL 13.0-16.8 L 410) HEMATOCRIT (BEAKER) (test code = 24.0 % 40.0-50.0 L 411) CALCIUM, [id number] 12:31:00 Test Item Value Reference Range Interpretation Comments CALCIUM IONIZED (BEAKER) (test 1.09 mmol/L 1.12-1.27 L code = 698) PH, BLOOD (BEAKER) (test code = 7.45 1810) GLUCOSE-STAT [id number] 12:30:00 Test Item Value Reference Range Interpretation Comments GLUCOSE RANDOM (BEAKER) (test code = 93 mg/dL 70-110 652) SODIUM NA-STAT [id number] 12:30:00 Test Item Value Reference Range Interpretation Comments SODIUM (BEAKER) (test code = 381) 140 meq/L 135-148 POTASSIUM-STAT [id number] 12:30:00 Test Item Value Reference Range Interpretation Comments POTASSIUM (BEAKER) (test code = 3.9 meq/L 3.6-5.5 379) BLOOD GAS, [id number] 12:30:00 Test Item Value Reference Range Interpretation Comments PH ARTERIAL (BEAKER) (test code = 7.48 7.35-7.45 H 383) PCO2 ARTERIAL (BEAKER) (test code 39 mmHg 35-45 = 384) PO2 ARTERIAL (BEAKER) (test code = 128 mmHg 80-90 H 385) O2 SATURATION ARTERIAL (BEAKER) 98.9 % 96.0-97.0 H (test code = 386) HCO3 ARTERIAL (BEAKER) (test code 29 mmol/L 21-29 = 388) BASE EXCESS ARTERIAL (BEAKER) 4.1 mmol/L -2.0-3.0 H (test code = 387) PATIENT TEMPERATURE (BEAKER) (test 35.0 C code = 1818) FIO2 (BEAKER) (test code = 1819) 100.0 % HGB/HCT (H&H) - STAT [id number] 12:30:00 Test Item Value Reference Range Interpretation Comments HEMOGLOBIN (BEAKER) (test code = 9.3 g/dL 13.0-16.8 L 410) HEMATOCRIT (BEAKER) (test code = 27.0 % 40.0-50.0 L 411) HEMOGLOBIN [id number] 10:02:00 Test Item Value Reference Range Interpretation Comments HEMOGLOBIN A1C (BEAKER) (test code = 4.4 % 4.3-6.1 368) POCT-GLUCOSE [id number] 09:52:00 Test Item Value Reference Range Interpretation Comments POC-GLUCOSE METER 115 mg/dL 70-110 H TESTED AT [facility] [id number] (BEAKER) (test code = MARIA GOSMAN BRANDON 1538) [id number] PROTHROMBIN [id number] 02:41:00 Test Item Value Reference Range Interpretation Comments PROTIME (BEAKER) (test code = 14.9 seconds 11.7-14.7 H 759) INR (BEAKER) (test code = 370) 1.2 <=5.9 RECOMMENDED COUMADIN/WARFARIN INR THERAPY RANGESSTANDARD DOSE: 2.0 - 3.0 Includes: PROPHYLAXIS forvenous thrombosis, systemic embolization; TREATMENT for venous thrombosis and/or pulmonary embolus.HIGH RISK: Target INR is 2.5-3.5 for patients with mechanical heart valves.BASIC METABOLIC [id number] 00:29:00 Test Item Value Reference Range Interpretation Comments SODIUM (BEAKER) 137 meq/L 136-145 (test code = 381) POTASSIUM (BEAKER) 4.4 meq/L 3.5-5.1 Specimen slightly (test code = 379) hemolyzed CHLORIDE (BEAKER) 100 meq/L 98-107 (test code = 382) CO2 (BEAKER) (test 25 meq/L 22-29 code = 355) BLOOD UREA NITROGEN 32 mg/dL 7-21 H (BEAKER) (test code = 354) CREATININE (BEAKER) 5.79 mg/dL 0.57-1.25 H Specimen slightly (test code = 358) hemolyzed GLUCOSE RANDOM 126 mg/dL 70-105 H (BEAKER) (test code = 652) CALCIUM (BEAKER) 9.8 mg/dL 8.4-10.2 (test code = 697) EGFR (BEAKER) (test 12 mL/min/1.73 ESTIMA JAYLA GFR IS code = 1092) sq m NOT ACCURATE CREATININE CLEARANCE IN PREDICTING GLOMERULAR FILTRATION RATE . ESTIMATED GFR I S NOT APPLICABLE FOR DIALYSIS PATIEN TS. [id number] 00:22:00 Test Item Value Reference Range Interpretation Comments MAGNESIUM (BEAKER) 2.5 mg/dL 1.6-2.6 Specimen slightly (test code = 627) hemolyzed [id number] 00:14:00 Test Item Value Reference Range Interpretation Comments PARTIAL THROMBOPLASTIN TIME 38.6 seconds 22.5-36.0 H (BEAKER) (test code = 760) CBC W/PLT COUNT & AUTO [id number] 00:07:00 Test Item Value Reference Range Interpretation Comments WHITE BLOOD CELL COUNT (BEAKER) 5.2 K/ L 3.5-10.5 (test code = 775) RED BLOOD CELL COUNT (BEAKER) 3.16 M/ L 4.63-6.08 L (test code = 761) HEMOGLOBIN (BEAKER) (test code = 10.1 GM/DL 13.7-17.5 L 410) HEMATOCRIT (BEAKER) (test code = 31.4 % 40.1-51.0 L 411) MEAN CORPUSCULAR VOLUME (BEAKER) 99.4 fL 79.0-92.2 H (test code = 753) MEAN CORPUSCULAR HEMOGLOBIN 32.0 pg 25.7-32.2 (BEAKER) (test code = 751) MEAN CORPUSCULAR HEMOGLOBIN CONC 32.2 GM/DL 32.3-36.5 L (BEAKER) (test code = 752) RED CELL DISTRIBUTION WIDTH 16.7 % 11.6-14.4 H (BEAKER) (test code = 412) PLATELET COUNT (BEAKER) (test 112 K/CU MM 150-450 L code = 756) MEAN PLATELET VOLUME (BEAKER) 9.6 fL 9.4-12.4 (test code = 754) NUCLEATED RED BLOOD CELLS 0 /100 WBC 0-0 (BEAKER) (test code = 413) NEUTROPHILS RELATIVE PERCENT 69 % (BEAKER) (test code = 429) LYMPHOCYTES RELATIVE PERCENT 19 % (BEAKER) (test code = 430) MONOCYTES RELATIVE PERCENT 10 % (BEAKER) (test code = 431) EOSINOPHILS RELATIVE PERCENT 1 % (BEAKER) (test code = 432) BASOPHILS RELATIVE PERCENT 1 % (BEAKER) (test code = 437) NEUTROPHILS ABSOLUTE COUNT 3.58 K/ L 1.78-5.38 (BEAKER) (test code = 670) LYMPHOCYTES ABSOLUTE COUNT 0.98 K/ L 1.32-3.57 L (BEAKER) (test code = 414) MONOCYTES ABSOLUTE COUNT (BEAKER) 0.49 K/ L 0.30-0.82 (test code = 415) EOSINOPHILS ABSOLUTE COUNT 0.07 K/ L 0.04-0.54 (BEAKER) (test code = 416) BASOPHILS ABSOLUTE COUNT (BEAKER) 0.04 K/ L 0.01-0.08 (test code = 417) IMMATURE GRANULOCYTES-RELATIVE 0 % 0-1 PERCENT (BEAKER) (test code = 2801) [id number] 17:03:00 Test Item Value Reference Range Interpretation Comments THYROID STIMULATING HORMONE 1.30 uIU/mL 0.35-4.94 (BEAKER) (test code = 772) HEPATIC FUNCTION [id number] 16:43:00 Test Item Value Reference Range Interpretation Comments TOTAL PROTEIN (BEAKER) (test code = 8.0 gm/dL 6.0-8.3 770) ALBUMIN (BEAKER) (test code = 1145) 3.9 g/dL 3.5-5.0 BILIRUBIN TOTAL (BEAKER) (test code 1.3 mg/dL 0.2-1.2 H = 377) BILIRUBIN DIRECT (BEAKER) (test 0.7 mg/dL 0.1-0.5 H code = 706) ALKALINE PHOSPHATASE (BEAKER) (test 74 U/L 40-150 code = 346) AST (SGOT) (BEAKER) (test code = 60 U/L 5-34 H 353) ALT (SGPT) (BEAKER) (test code = 69 U/L 6-55 H 347) BASIC METABOLIC [id number] 15:47:00 Test Item Value Reference Range Interpretation Comments SODIUM (BEAKER) 135 meq/L 136-145 L (test code = 381) POTASSIUM (BEAKER) 4.5 meq/L 3.5-5.1 (test code = 379) CHLORIDE (BEAKER) 94 meq/L 98-107 L (test code = 382) CO2 (BEAKER) (test 23 meq/L 22-29 code = 355) BLOOD UREA NITROGEN 78 mg/dL 7-21 H (BEAKER) (test code = 354) CREATININE (BEAKER) 10.41 mg/dL 0.57-1.25 H (test code = 358) GLUCOSE RANDOM 111 mg/dL 70-105 H (BEAKER) (test code = 652) CALCIUM (BEAKER) 9.9 mg/dL 8.4-10.2 (test code = 697) EGFR (BEAKER) (test 6 mL/min/1.73 ESTIMAT ED GFR IS code = 1092) sq m NOT ACCURATE CREATININE CLEARANCE IN PREDICTING GLOMERULAR FILTRATION RATE . ESTIMATED GFR I S NOT APPLICABLE FOR DIALYSIS PATIEN TED. [id number] 14:57:00 Test Item Value Reference Range Interpretation Comments PARTIAL THROMBOPLASTIN TIME 82.9 seconds 22.5-36.0 H (BEAKER) (test code = 760) CBC W/PLT COUNT & AUTO [id number] 14:48:00 Test Item Value Reference Range Interpretation Comments WHITE BLOOD CELL COUNT (BEAKER) 6.6 K/ L 3.5-10.5 (test code = 775) RED BLOOD CELL COUNT (BEAKER) 3.02 M/ L 4.63-6.08 L (test code = 761) HEMOGLOBIN (BEAKER) (test code = 9.9 GM/DL 13.7-17.5 L 410) HEMATOCRIT (BEAKER) (test code = 29.3 % 40.1-51.0 L 411) MEAN CORPUSCULAR VOLUME (BEAKER) 97.0 fL 79.0-92.2 H (test code = 753) MEAN CORPUSCULAR HEMOGLOBIN 32.8 pg 25.7-32.2 H (BEAKER) (test code = 751) MEAN CORPUSCULAR HEMOGLOBIN CONC 33.8 GM/DL 32.3-36.5 (BEAKER) (test code = 752) RED CELL DISTRIBUTION WIDTH 16.7 % 11.6-14.4 H (BEAKER) (test code = 412) PLATELET COUNT (BEAKER) (test 116 K/CU MM 150-450 L code = 756) MEAN PLATELET VOLUME (BEAKER) 9.9 fL 9.4-12.4 (test code = 754) NUCLEATED RED BLOOD CELLS 0 /100 WBC 0-0 (BEAKER) (test code = 413) NEUTROPHILS RELATIVE PERCENT 68 % (BEAKER) (test code = 429) LYMPHOCYTES RELATIVE PERCENT 20 % (BEAKER) (test code = 430) MONOCYTES RELATIVE PERCENT 10 % (BEAKER) (test code = 431) EOSINOPHILS RELATIVE PERCENT 1 % (BEAKER) (test code = 432) BASOPHILS RELATIVE PERCENT 0 % (BEAKER) (test code = 437) NEUTROPHILS ABSOLUTE COUNT 4.44 K/ L 1.78-5.38 (BEAKER) (test code = 670) LYMPHOCYTES ABSOLUTE COUNT 1.33 K/ L 1.32-3.57 (BEAKER) (test code = 414) MONOCYTES ABSOLUTE COUNT (BEAKER) 0.66 K/ L 0.30-0.82 (test code = 415) EOSINOPHILS ABSOLUTE COUNT 0.06 K/ L 0.04-0.54 (BEAKER) (test code = 416) BASOPHILS ABSOLUTE COUNT (BEAKER) 0.02 K/ L 0.01-0.08 (test code = 417) IMMATURE GRANULOCYTES-RELATIVE 1 % 0-1 PERCENT (AKER) (test code = 2801) POCT-GLUCOSE [id number] 11:13:00 Test Item Value Reference Range Interpretation Comments POC-GLUCOSE METER 207 mg/dL 70-110 H TESTED AT [facility] 67 ([facility]) (test code = [address] [place] 1538) [id number] POCT-GLUCOSE [id number] 08:08:00 Test Item Value Reference Range Interpretation Comments POC-GLUCOSE METER 124 mg/dL 70-110 H TESTED AT [facility] 6720 ([facility]) (test code = [address] [facility] 1538) [id number] 06:51:00 Test Item Value Reference Range Interpretation Comments PARTIAL THROMBOPLASTIN TIME 54.6 seconds 22.5-36.0 H (AKER) (test code = 760) HEPATITIS B SURFACE [id number] 00:28:00 Test Item Value Reference Range Interpretation Comments HEPATITIS B SURFACE ANTIGEN (2) Nonreactive Nonreactive (BEAKER) (test code = 2585) [id number] 00:06:00 Test Item Value Reference Range Interpretation Comments PHOSPHORUS (BEAKER) (test code = 3.2 mg/dL 2.3-4.7 604) [id number] 00:03:00 Test Item Value Reference Range Interpretation Comments PARTIAL THROMBOPLASTIN TIME 36.0 seconds 22.5-36.0 (AKER) (test code = 760) CBC W/PLT COUNT & AUTO [id number] 23:45:00 Test Item Value Reference Range Interpretation Comments WHITE BLOOD CELL COUNT (BEAKER) 5.8 K/ L 3.5-10.5 (test code = 775) RED BLOOD CELL COUNT (BEAKER) 2.99 M/ L 4.63-6.08 L (test code = 761) HEMOGLOBIN (BEAKER) (test code = 9.7 GM/DL 13.7-17.5 L 410) HEMATOCRIT (BEAKER) (test code = 29.3 % 40.1-51.0 L 411) MEAN CORPUSCULAR VOLUME (BEAKER) 98.0 fL 79.0-92.2 H (test code = 753) MEAN CORPUSCULAR HEMOGLOBIN 32.4 pg 25.7-32.2 H (BEAKER) (test code = 751) MEAN CORPUSCULAR HEMOGLOBIN CONC 33.1 GM/DL 32.3-36.5 (BEAKER) (test code = 752) RED CELL DISTRIBUTION WIDTH 16.5 % 11.6-14.4 H (BEAKER) (test code = 412) PLATELET COUNT (BEAKER) (test 103 K/CU MM 150-450 L code = 756) MEAN PLATELET VOLUME (BEAKER) 9.5 fL 9.4-12.4 (test code = 754) NUCLEATED RED BLOOD CELLS 0 /100 WBC 0-0 (BEAKER) (test code = 413) NEUTROPHILS RELATIVE PERCENT 66 % (BEAKER) (test code = 429) LYMPHOCYTES RELATIVE PERCENT 22 % (BEAKER) (test code = 430) MONOCYTES RELATIVE PERCENT 10 % (BEAKER) (test code = 431) EOSINOPHILS RELATIVE PERCENT 2 % (BEAKER) (test code = 432) BASOPHILS RELATIVE PERCENT 1 % (BEAKER) (test code = 437) NEUTROPHILS ABSOLUTE COUNT 3.79 K/ L 1.78-5.38 (BEAKER) (test code = 670) LYMPHOCYTES ABSOLUTE COUNT 1.26 K/ L 1.32-3.57 L (BEAKER) (test code = 414) MONOCYTES ABSOLUTE COUNT (BEAKER) 0.59 K/ L 0.30-0.82 (test code = 415) EOSINOPHILS ABSOLUTE COUNT 0.10 K/ L 0.04-0.54 (BEAKER) (test code = 416) BASOPHILS ABSOLUTE COUNT (BEAKER) 0.03 K/ L 0.01-0.08 (test code = 417) IMMATURE GRANULOCYTES-RELATIVE 0 % 0-1 PERCENT (BEAKER) (test code = 2801) POCT-GLUCOSE [id number] 17:39:00 Test Item Value Reference Range Interpretation Comments POC-GLUCOSE METER 116 mg/dL 70-110 H TESTED AT [facility] 6720 (BEAKER) (test code = [address] [place] 1538) [id number] 15:35:00 Test Item Value Reference Range Interpretation Comments THYROID STIMULATING HORMONE 1.39 uIU/mL 0.35-4.94 (BEAKER) (test code = 772) [id number] 15:06:00 Test Item Value Reference Range Interpretation Comments PARTIAL THROMBOPLASTIN TIME 31.0 seconds 22.5-36.0 (JARROD) (test code = 760) Prior to initiating heparinPROTHROMBIN TIME/[id number] 15:05:00 Test Item Value Reference Range Interpretation Comments PROTIME (JARROD) (test code = 14.4 seconds 11.7-14.7 759) INR (JARROD) (test code = 370) 1.1 <=5.9 RECOMMENDED COUMADIN/WARFARIN INR THERAPY RANGESSTANDARD DOSE: 2.0 - 3.0 Includes: PROPHYLAXIS forvenous thrombosis, systemic embolization; TREATMENT for venous thrombosis and/or pulmonary embolus.HIGH RISK: Target INR is 2.5-3.5 for patients with mechanical heart valves.PLATELET [id number] 14:52:00 Test Item Value Reference Range Interpretation Comments PLATELET COUNT (JARROD) (test 109 K/CU MM 150-450 L code = 756) POCT-GLUCOSE [id number] 12:00:00 Test Item Value Reference Range Interpretation Comments POC-GLUCOSE METER 186 mg/dL 70-110 H TESTED AT [facility] 6720 (JARROD) (test code = [address] [place] 1538) [id number] RAD, CHEST, 1 VIEW, NON [id number] 11:43:00Reason for exam:->SOB, known severe MRShould this be performed at the bedside?->YesFINAL REPORT Chest one view AP 01/08/2018 11:42 AM CLINICAL INDICATION: SOB, kno wn severe MR COMPARISON: 12/02/2017 IMPRESSION: Cardiomediastinal contours are stable. There is mild pulmonary edema. There are trace bilateral pleural effusions. Signed: Yevgeniy Anderson Verified Date/Time: 01/08/2018 11:43:52 Reading Location: [facility] Radiology Reading Room [facility] ally signed by: YEVGENIY ANDERSON M.D. on 01/08/2018 11:43 AMRAPID CK-MB 2017-12-02 10:04:00 Test Item Value Reference Range Interpretation Comments RAPID CKMB (JARROD) (test code = 1.5 ng/mL 0.0-4.3 1482) RAPID TROPONIN [id number] 10:04:00 Test Item Value Reference Range Interpretation Comments RAPID TROPONIN I (BEAKER) (test code < ng/mL <0.05 = 1483) RAD, CHEST, 2 [id number] 10:00:00Reason for exam:->Chest PainFINAL REPORT Chest two views Discussion: Heart size upper limits of normal. Bilateral interstitial edema with small bilateral effusions. No pneumothorax. Bones and soft tissues unremarkable. Signed: Rhea Colindres MDReport Verified Date/Time: 12/02/2017 10:00:39 Reading Location:[facility] Radiology Reading Room B-TYPE NATRIURETIC FACTOR (BNP)2017-12-02 09:56:00 Test Item Value Reference Range Interpretation Comments B-TYPE NATRIURETIC PEPTIDE 1990 pg/mL 0-100 H (BEAKER) (test code = 700) BASIC METABOLIC [id number] 09:52:00 Test Item Value Reference Range Interpretation Comments SODIUM (BEAKER) 141 meq/L 135-148 (test code = 381) POTASSIUM (BEAKER) 3.9 meq/L 3.6-5.5 (test code = 379) CHLORIDE (BEAKER) 94 meq/L 98-106 L (test code = 382) CO2 (BEAKER) (test 28 meq/L 24-32 code = 355) BLOOD UREA NITROGEN 59 mg/dL 10-26 H (BEAKER) (test code = 354) CREATININE (BEAKER) 8.47 mg/dL 0.50-1.20 H (test code = 358) GLUCOSE RANDOM 89 mg/dL 70-110 (BEAKER) (test code = 652) CALCIUM (BEAKER) 9.5 mg/dL 8.5-10.5 (test code = 697) EGFR (BEAKER) (test 8 mL/min/1.73 ESTIMAT ED GFR IS code = 1092) sq m NOT ACCURATE CREATININE CLEARANCE IN PREDICTING GLOMERULAR FILTRATION RATE . ESTIMATED GFR I S NOT APPLICABLE FOR DIALYSIS PATIEN TS. [id number] 09:51:00 Test Item Value Reference Range Interpretation Comments MAGNESIUM (BEAKER) (test code = 1.7 mg/dL 1.5-3.0 627) CBC W/PLT COUNT & AUTO [id number] 09:50:00 Test Item Value Reference Range Interpretation Comments WHITE BLOOD CELL COUNT (BEAKER) 5.7 10e3/ L 4.0-10.0 (test code = 775) RED BLOOD CELL COUNT (BEAKER) 2.81 10e6/ L 4.20-5.80 L (test code = 761) HEMOGLOBIN (BEAKER) (test code = 9.1 g/dL 13.0-16.8 L 410) HEMATOCRIT (BEAKER) (test code = 26.7 % 40.0-50.0 L 411) MEAN CORPUSCULAR VOLUME (BEAKER) 94.8 fL 82.0-98.0 (test code = 753) MEAN CORPUSCULAR HEMOGLOBIN 32.4 pg 27.0-33.0 (BEAKER) (test code = 751) MEAN CORPUSCULAR HEMOGLOBIN CONC 34.1 g/dL 32.0-36.0 (BEAKER) (test code = 752) RED CELL DISTRIBUTION WIDTH 12.6 % 10.3-14.2 (BEAKER) (test code = 412) PLATELET COUNT (BEAKER) (test 120 10e3/ L 150-430 L code = 756) MEAN PLATELET VOLUME (BEAKER) 7.6 fL 6.5-10.5 (test code = 754) NEUTROPHILS RELATIVE PERCENT 72 % (BEAKER) (test code = 429) LYMPHOCYTES RELATIVE PERCENT 17 % (BEAKER) (test code = 430) MONOCYTES RELATIVE PERCENT 9 % (BEAKER) (test code = 431) EOSINOPHILS RELATIVE PERCENT 2 % (BEAKER) (test code = 432) BASOPHILS RELATIVE PERCENT 0 % (BEAKER) (test code = 437) NEUTROPHILS ABSOLUTE COUNT 4.04 10e3/ L 1.80-8.00 (BEAKER) (test code = 670) LYMPHOCYTES ABSOLUTE COUNT 0.97 10e3/ L 1.48-4.50 L (BEAKER) (test code = 414) MONOCYTES ABSOLUTE COUNT 0.53 10e3/ L 0.00-1.30 (BEAKER) (test code = 415) EOSINOPHILS ABSOLUTE COUNT 0.10 10e3/ L 0.00-0.50 (BEAKER) (test code = 416) BASOPHILS ABSOLUTE COUNT 0.02 10e3/ L 0.00-0.20 (BEAKER) (test code = 417) CD4/CD8 Ratio [id number] 08:04:00 Test Item Value Reference Range Interpretation Comments Absolute CD 4 [place] (test code 188 /uL 359-1519 L = 025788) % CD 4 Pos. Lymph. (test code = 37.6 % 30.8-58.5 N 327692) Abs. CD 8 Suppressor (test code 183 /uL 109-897 N = 731479) % CD 8 Pos. Lymph. (test code = 36.6 % 12.0-35.5 H 311383) CD4/CD8 Ratio (test code = 1.03 0.92-3.72 N 312371) WBC (test code = 813645) 5.0 x10E3/uL 3.4-10.8 N RBC (test code = 833780) 3.00 x10E6/uL 4.14-5.80 L Hemoglobin (test code = 117790) 9.6 g/dL 13.0-17.7 L Hematocrit (test code = 559583) 27.6 % 37.5-51.0 L MCV (test code = 266675) 92 fL 79-97 N MCH (test code = 312458) 32.0 pg 26.6-33.0 N MCHC (test code = 865465) 34.8 g/dL 31.5-35.7 N RDW (test code = 814543) 15.5 % 12.3-15.4 H Platelets (test code = 606920) 113 x10E3/uL 150-379 L Neutrophils (test code = 84 % Not Estab. N 489879) Lymphs (test code = 857094) 9 % Not Estab. N Monocytes (test code = 508157) 6 % Not Estab. N Eos (test code = 742917) 1 % Not Estab. N Basos (test code = 490442) 0 % Not Estab. N Neutrophils (Absolute) (test 4.2 x10E3/uL 1.4-7.0 N code = 940109) Lymphs (Absolute) (test code = 0.5 x10E3/uL 0.7-3.1 L 512489) Monocytes(Absolute) (test code 0.3 x10E3/uL 0.1-0.9 N = 497676) Eos (Absolute) (test code = 0.0 x10E3/uL 0.0-0.4 N 815183) Baso (Absolute) (test code = 0.0 x10E3/uL 0.0-0.2 N 672680) Immature Granulocytes (test 0 % Not Estab. N code = 376972) Immature Grans (Abs) (test code 0.0 x10E3/uL 0.0-0.1 N = 494682) Culture, Blood [id number] 08:42:00Specimen: BloodCollected: 11/19/2017 00:21 Status: Final Last Updated: 11/24/2017 08:42 Culture Result (Final) (Final) No Growth After 5 DaysCulture, Blood [id number] 08:42:00 Specimen: BloodCollected: 11/18/2017 20:30 Status: Final Last Updated: 11/24/2017 08:42 Culture Result (Final) (Final) No Growth After 5 DaysPOC Glucose, [id number] 11:51:00 Test Item Value Reference Range Interpretation Comments POC Glucose (test 148 mg/dL 70-115 H Notify RN or MDIf you code = POCGLUC) consider you r patient critically ill, the Madeline Accu-Chek InformII metershould not be used for Glucose determinations. Draw a venous Glucose and send to the Main Lab for Analysis. CK [id number] 07:42:00 Test Item Value Reference Range Interpretation Comments CK (test code = CK) na U/L 39-308 N CKMB (test code = CKMB) 4.0 ng/mL 0.0-4.9 N CKMB% (test code = CKMBP) 0.0 % 0.0-3.4 N [id number] 07:39:00 Test Item Value Reference Range Interpretation Comments NT ProBnp (test code = PBNP) >00576 pg/mL 0-124 H Troponin [id number] 07:18:00 Test Item Value Reference Range Interpretation Comments Troponin T (test code = MADHAV) 0.103 ng/mL 0.000-0.090 H Lactate [id number] 07:18:00 Test Item Value Reference Range Interpretation Comments LDH (test code = LDH) 271 U/L 135-225 H POC Glucose, [id number] 06:50:00 Test Item Value Reference Range Interpretation Comments POC Glucose (test 154 mg/dL 70-115 H Notify RN or MDIf you code = POCGLUC) consider you r patient critically ill, the Madeline Accu-Chek InformII metershould not be used for Glucose determinations. Draw a venous Glucose and send to the Main Lab for Analysis. CK [id number] 01:08:00 Test Item Value Reference Range Interpretation Comments CK (test code = CK) na U/L 39-308 N CKMB (test code = CKMB) 3.6 ng/mL 0.0-4.9 N CKMB% (test code = CKMBP) 0.0 % 0.0-3.4 N Troponin [id number] 01:08:00 Test Item Value Reference Range Interpretation Comments Troponin T (test code = MADHAV) 0.106 ng/mL 0.000-0.090 H XR CHEST 1 [id number] 21:02:01CLINICAL INFORMATION: Vascular congestion.Dictation Location: R 16Comparison: 11/18/2017 showed perihilar and lower lobe opacities. Technique: Portable AP 1951 hoursFINDINGS: Monitoring electrodes overlie the chest wall. Cardiomegaly withincreasing central vascular interstitial prominence with bibasilaropacities and effusions. No interval bone changes.IMPRESSION: Changes could indicate worsening cardiac decompensation orfluid overload.POC Glucose, [id number] 20:15:00 Test Item Value Reference Range Interpretation Comments POC Glucose (test 139 mg/dL 70-115 H If you con chief order dispatcher your code = POCGLUC) patient crit ically ill, the Madeline Accu- Chek InformII meters hould not be used for Glu cose determinations. Draw a venous Glucose and send to the Main Lab for Analysis. POC Glucose, [id number] 16:52:00 Test Item Value Reference Range Interpretation Comments POC Glucose (test 123 mg/dL 70-115 H If you con chief order dispatcher your code = POCGLUC) patient crit ically ill, the Madeline Accu- Chek InformII meters hould not be used for Glu cose determinations. Draw a venous Glucose and send to the Main Lab for Analysis. POC Glucose, [id number] 12:04:00 Test Item Value Reference Range Interpretation Comments POC Glucose (test 140 mg/dL 70-115 H If you con chief order dispatcher your code = POCGLUC) patient crit ically ill, the Madeline Accu- Chek InformII meters hould not be used for Glu cose determinations. Draw a venous Glucose and send to the Main Lab for Analysis. POC Glucose, [id number] 08:01:00 Test Item Value Reference Range Interpretation Comments POC Glucose (test 126 mg/dL 70-115 H If you con chief order dispatcher your code = POCGLUC) patient crit ically ill, the Madeline Accu- Chek InformII meters hould not be used for Glu cose determinations. Draw a venous Glucose and send to the Main Lab for Analysis. CK [id number] 06:03:00 Test Item Value Reference Range Interpretation Comments CK (test code = CK) na U/L 39-308 N CKMB (test code = CKMB) 2.8 ng/mL 0.0-4.9 N CKMB% (test code = CKMBP) 0.0 % 0.0-3.4 N Basic Metabolic [id number] 05:51:00 Test Item Value Reference Range Interpretation Comments Sodium (test code = 140 mmol/L 135-145 N NA) Potassium (test 4.0 mmol/L 3.5-5.1 N code = K) Chloride (test code 97 mmol/L 98-105 L = CL) Carbon Dioxide 32 mmol/L 22-29 H (test code = CO2) Glucose (test code 115 mg/dL 70-115 N = GLU) Blood Urea Nitrogen 29 mg/dL 6-20 H (test code = BUN) Creatinine (test 5.5 mg/dL 0.7-1.2 H code = CREAT) Calcium (test code 9.1 mg/dL 8.3-10.5 N = CA) BUN/Creatinine 5.3 Ratio (test code = BCRATIO) Anion Gap (test 11 mmol/L 7-16 N code = AGAP) Estimated GFR (test 14 eGFR (es timated code = GFR) mL/min/1.73m2 Glomerular Ramses tration Rate) is an est imated value,calculate d from the patient's s radha creatinine usin g the MDRD equation.I t is NOT the patient 's actual GFR. The eGFR provides a more clinicallyusefu l measure of kidn ey disease than se rum creatinine alone.This calculation russell es sex and race into account, if the informationis provided. If th e race is not provided , and the patient isAfrican-Ameri can, multiply by 1.2 12. If sex is not prov ided, and thepatient is female, multipl y by 0.742. Results for patients <18 ye ars ofage have not been validated by th e MDRD study and shoul d be interpretedwith caution.eGFR Re sult Interpretation: eGFR > or = 60 is in t he Normal RangeeGF R < 60 may mean kidney diseaseeGFR < 1 5 may mean kidney failureRange s recommended by the National Kidney Foundation,http ://nkd ep.nih.gov Magnesium, [id number] 05:51:00 Test Item Value Reference Range Interpretation Comments Magnesium (test code = MG) 1.9 mg/dL 1.7-2.5 N [id number] 05:51:00 Test Item Value Reference Range Interpretation Comments Phosphorus (test code = PO4) 3.8 mg/dL 2.70-4.50 N [id number] 05:51:00 Test Item Value Reference Range Interpretation Comments NT ProBnp (test code = PBNP) >78652 pg/mL 0-124 H Troponin [id number] 05:51:00 Test Item Value Reference Range Interpretation Comments Troponin T (test code = MADHAV) 0.126 ng/mL 0.000-0.090 H CBC with [id number] 05:34:00 Test Item Value Reference Range Interpretation Comments WBC (test code = WBC) 5.9 K/cumm 4.4-10.5 N RBC (test code = RBC) 3.01 M/cumm 4.10-5.70 L Hemoglobin (test code = HGB) 9.4 gm/dL 13.4-17.4 L Hematocrit (test code = HCT) 28.8 % 38.7-52.0 L MCV (test code = MCV) 95.7 fL 80-100 N MCH (test code = MCH) 31.3 pg 27.0-32.5 N MCHC (test code = MCHC) 32.7 g/dL 32.0-37.5 N RDW (test code = RDW) 15.6 % 11.5-14.5 H Platelet Count (test code = 111 K/cumm 140-440 L PLTCT) MPV (test code = MPV) 7.1 fL Diff Method (test code = DIFFM) Auto Neutrophil (test code = NEUT) 82.1 % 36-70 H Lymphocyte (test code = LYMPH) 6.2 % 12-44 L Monocyte (test code = MONO) 9.3 % 0-11 N Eosinophil (test code = EOS) 2.1 % 0-7 N Basophil (test code = BASO) 0.3 % 0-2 N Neutro Abs (test code = ANEUT) 4.8 K/cumm 1.6-7.4 N Lymph Abs (test code = ALYMPH) 0.4 K/cumm 0.5-4.6 L [place] Abs (test code = AMONO) 0.6 K/cumm 0.0-1.2 N Eos Abs (test code = AEOS) 0.13 K/cumm 0.00-0.74 N Baso Abs (test code = ABASO) 0.0 K/cumm 0.00-0.21 N CK [id number] 18:39:00 Test Item Value Reference Range Interpretation Comments CK (test code = CK) HIDE U/L 39-308 N CKMB (test code = CKMB) 3.2 ng/mL 0.0-4.9 N CKMB% (test code = CKMBP) HIDE % 0.0-3.4 N Troponin [id number] 18:39:00 Test Item Value Reference Range Interpretation Comments Troponin T (test code = MADHAV) 0.126 ng/mL 0.000-0.090 H Hep B Surface [id number] 18:39:00 Test Item Value Reference Range Interpretation Comments Hep Bs Ag (test code = HBSAG) Nonreactive Non-Reactive A POC Glucose, [id number] 16:47:00 Test Item Value Reference Range Interpretation Comments POC Glucose (test 143 mg/dL 70-115 H If you con chief order dispatcher your code = POCGLUC) patient crit ically ill, the Madeline Accu- Chek InformII meters hould not be used for Glu cose determinations. Draw a venous Glucose and send to the Main Lab for Analysis. XR CHEST 1 [id number] 08:18:18EXAM: Portable AP chest x-rayLOCATION: R16 INDICATION: CoughCOMPARISON: 11/07/2017FINDINGS:The cardiacsilhouette is stable enlargement. There are increasinginterstitial opacities, most evident in the per ihilar regions and lowerlobes. There is blunting of the costophrenic angles bilaterally. Thereis no discernible pneumothorax.IMPRESSION:Increasing perihilar and bilateral lower lobe opacities compared to theprior exam dated 11/07/2017. Findings may represent pulmonary edema orpneumonia in the appropriate clinical setting.Comprehensive Metabolic [id number] 08:05:00 Test Item Value Reference Range Interpretation Comments Sodium (test code = 141 mmol/L 135-145 N NA) Potassium (test 3.9 mmol/L 3.5-5.1 N code = K) Chloride (test code 94 mmol/L 98-105 L = CL) Carbon Dioxide 28 mmol/L 22-29 N (test code = CO2) Glucose (test code 123 mg/dL 70-115 H = GLU) Blood Urea Nitrogen 50 mg/dL 6-20 H (test code = BUN) Creatinine (test 7.4 mg/dL 0.7-1.2 H code = CREAT) Calcium (test code 9.3 mg/dL 8.3-10.5 N = CA) Prot Total (test 7.9 g/dL 6.4-8.3 N code = TP) Albumin (test code 4.3 g/dL 3.5-5.2 N = ALB) A/G Ratio (test 1.2 Ratio code = AGRATIO) Globulin (test code 3.6 2.9-3.1 H = GLOB) Bili Total (test 0.7 mg/dL 0.1-0.9 N code = TBIL) Alk Phos (test code 93 U/L 40-129 N = APHOS) AST (test code = 55 U/L 1-40 H AST) ALT (test code = 38 U/L 1-41 N ALT) BUN/Creatinine 6.8 Ratio (test code = BCRATIO) Anion Gap (test 19 mmol/L 7-16 H code = AGAP) Estimated GFR (test 10 eGFR (es timated code = GFR) mL/min/1.73m2 Glomerular Ramses tration Rate) is an est imated value,calculate d from the patient's s radha creatinine usin g the MDRD equation.I t is NOT the patient 's actual GFR. The eGFR provides a more clinicallyusefu l measure of kidn ey disease than se rum creatinine alone.This calculation russell es sex and race into account, if the informationis provided. If th e race is not provided , and the patient isAfrican-Ameri can, multiply by 1.2 12. If sex is not prov ided, and thepatient is female, multipl y by 0.742. Results for patients <18 ye ars ofage have not been validated by th e MDRD study and shoul d be interpretedwith caution.eGFR Re sult Interpretation: eGFR > or = 60 is in t he Normal RangeeGF R < 60 may mean kidney diseaseeGFR < 1 5 may mean kidney failureRange s recommended by the [employer],http ://nkd ep.nih.gov CK [id number] 08:05:00 Test Item Value Reference Range Interpretation Comments CK (test code = CK) 149 U/L 39-308 N Troponin [id number] 08:02:00 Test Item Value Reference Range Interpretation Comments Troponin T (test code = MADHAV) 0.114 ng/mL 0.000-0.090 H [id number] 08:02:00 Test Item Value Reference Range Interpretation Comments NT ProBnp (test code = PBNP) >49704 pg/mL 0-124 H CBC with [id number] 07:53:00 Test Item Value Reference Range Interpretation Comments WBC (test code = WBC) 5.1 K/cumm 4.4-10.5 N RBC (test code = RBC) 3.22 M/cumm 4.10-5.70 L Hemoglobin (test code = HGB) 10.0 gm/dL 13.4-17.4 L Hematocrit (test code = HCT) 30.4 % 38.7-52.0 L MCV (test code = MCV) 94.4 fL 80-100 N MCH (test code = MCH) 30.9 pg 27.0-32.5 N MCHC (test code = MCHC) 32.8 g/dL 32.0-37.5 N RDW (test code = RDW) 16.1 % 11.5-14.5 H Platelet Count (test code = 118 K/cumm 140-440 L PLTCT) MPV (test code = MPV) 9.6 fL Diff Method (test code = DIFFM) Auto Neutrophil (test code = NEUT) 73.2 % 36-70 H Lymphocyte (test code = LYMPH) 16.7 % 12-44 N Monocyte (test code = MONO) 7.2 % 0-11 N Eosinophil (test code = EOS) 2.2 % 0-7 N Basophil (test code = BASO) 0.6 % 0-2 N Neutro Abs (test code = ANEUT) 3.7 K/cumm 1.6-7.4 N Lymph Abs (test code = ALYMPH) 0.9 K/cumm 0.5-4.6 N [place] Abs (test code = AMONO) 0.4 K/cumm 0.0-1.2 N Eos Abs (test code = AEOS) 0.11 K/cumm 0.00-0.74 N Baso Abs (test code = ABASO) 0.0 K/cumm 0.00-0.21 N XR CHEST 1 [id number] 21:38:09EXAM: CHEST ONE VIEWINDICATION: CoughCOMPARISON: October 06, 2017TECHNIQUE: AP view of the chest.FINDINGS: The cardiomediastinal silhouette is unchanged. Mild congestive changesbilaterally. No pneumothorax or pleural effusion is identified. Theosseous structures are unremarkable.IMPRESSION: Diffuse congestive changes bilaterally.LOCATION: R16US DUPLX EXT VEINS COMPRS, [id number] 20:09:34AFTER HOURS SERVICE ON: 10/06/2017 8:09 PMRIGHT Lower Extremity Venous Duplex Doppler ExaminationLocation Code F23Uavtdjo: SwellingTechnique: Real-time castillo scale, Doppler spectral analysis [...] Lower Extremity Venous Duplex Doppler ExaminationLocation Code U44Bktko ry: SwellingTechnique: Real-time castillo scale, Doppler spectral [...] of DVT in the imaged vessels.Comprehensive Metabolic [id number] 17:40:00 Test Item Value Reference Range Interpretation Comments Sodium (test code = 137 mmol/L 135-145 N NA) Potassium (test 3.7 mmol/L 3.5-5.1 N code = K) Chloride (test code 92 mmol/L 98-105 L = CL) Carbon Dioxide 33 mmol/L 22-29 H (test code = CO2) Glucose (test code 98 mg/dL 70-115 N = GLU) Blood Urea Nitrogen 34 mg/dL 6-20 H (test code = BUN) Creatinine (test 6.3 mg/dL 0.7-1.2 H code = CREAT) Calcium (test code 9.6 mg/dL 8.3-10.5 N = CA) Prot Total (test 7.0 g/dL 6.4-8.3 N code = TP) Albumin (test code 4.1 g/dL 3.5-5.2 N = ALB) A/G Ratio (test 1.4 Ratio code = AGRATIO) Globulin (test code 2.9 2.9-3.1 N = GLOB) Bili Total (test 0.6 mg/dL 0.1-0.9 N code = TBIL) Alk Phos (test code 77 U/L 40-129 N = APHOS) AST (test code = 47 U/L 1-40 H HEMOLYZED AST) ALT (test code = 35 U/L 1-41 N ALT) BUN/Creatinine 5.4 Ratio (test code = BCRATIO) Anion Gap (test 12 mmol/L 7-16 N code = AGAP) Estimated GFR (test 12 eGFR (es timated code = GFR) mL/min/1.73m2 Glomerular Ramses tration Rate) is an est imated value,calculate d from the patient's s radha creatinine usin g the MDRD equation.I t is NOT the patient 's actual GFR. The eGFR provides a more clinicallyusefu l measure of kidn ey disease than se rum creatinine alone.This calculation russell es sex and race into account, if the informationis provided. If th e race is not provided , and the patient isAfrican-Ameri can, multiply by 1.2 12. If sex is not prov ided, and thepatient is female, multipl y by 0.742. Results for patients <18 ye ars ofage have not been validated by th e MDRD study and shoul d be interpretedwith caution.eGFR Re sult Interpretation: eGFR > or = 60 is in t he Normal RangeeGF R < 60 may mean kidney diseaseeGFR < 1 5 may mean kidney failureRange s recommended by the National Kidney Foundation,http ://nkd ep.nih.gov CBC with [id number] 17:15:00 Test Item Value Reference Range Interpretation Comments WBC (test code = WBC) 5.8 K/cumm 4.4-10.5 N RBC (test code = RBC) 2.93 M/cumm 4.10-5.70 L Hemoglobin (test code = HGB) 9.7 gm/dL 13.4-17.4 L Hematocrit (test code = HCT) 28.1 % 38.7-52.0 L MCV (test code = MCV) 95.8 fL 80-100 N MCH (test code = MCH) 32.9 pg 27.0-32.5 H MCHC (test code = MCHC) 34.4 g/dL 32.0-37.5 N RDW (test code = RDW) 15.1 % 11.5-14.5 H Platelet Count (test code = 136 K/cumm 140-440 L PLTCT) MPV (test code = MPV) 6.8 fL Diff Method (test code = DIFFM) Auto Neutrophil (test code = NEUT) 65.8 % 36-70 N Lymphocyte (test code = LYMPH) 22.0 % 12-44 N Monocyte (test code = MONO) 9.6 % 0-11 N Eosinophil (test code = EOS) 2.0 % 0-7 N Basophil (test code = BASO) 0.5 % 0-2 N Neutro Abs (test code = ANEUT) 3.8 K/cumm 1.6-7.4 N Lymph Abs (test code = ALYMPH) 1.3 K/cumm 0.5-4.6 N [place] Abs (test code = AMONO) 0.6 K/cumm 0.0-1.2 N Eos Abs (test code = AEOS) 0.12 K/cumm 0.00-0.74 N Baso Abs (test code = ABASO) 0.0 K/cumm 0.00-0.21 N XR CHEST 1 [id number] 16:56:42CHEST 1 VIEW: [id number]: coughCOMPARISON:Sep 24, 2017FINDINGS:The heart is enlarged. There is engorgement of the central pulmonaryvasculature. There are patchy bibasilar areas of infiltrate oratelectasis with bilateral effusions. No pneumothorax is present. IMPRESSION: 1. Patchy areas of atelectasis or infiltrate in the lung bases withsmall bilateral effusions and vascular congestion most likely secondaryto CHF.Culture, Blood [id number] 14:58:00Specimen: BloodCollected: 09/24/2017 13:05 Status: Final Last Updated: 09/29/2017 14:58 (1) ER Bed 1 Culture Result (Final) (Final) No Growth After 5 DaysCulture, Blood [id number] 14:58:00Specimen: BloodCollected: 09/24/2017 12:50 Status: Final Last Updated: 09/29/2017 14:58 (1) ER Bed 1 Culture Result (Final) (Final) No Growth After 5 DaysPOC Glucose, [id number] 10:54:00 Test Item Value Reference Range Interpretation Comments POC Glucose (test 168 mg/dL 70-115 H If you con chief order dispatcher your code = POCGLUC) patient crit ically ill, the Madeline Accu- Chek InformII meters hould not be used for Glu cose determinations. Draw a venous Glucose and send to the Main Lab for Analysis. POC Glucose, [id number] 07:16:00 Test Item Value Reference Range Interpretation Comments POC Glucose (test 143 mg/dL 70-115 H If you con chief order dispatcher your code = POCGLUC) patient crit ically ill, the Madeline Accu- Chek InformII meters hould not be used for Glu cose determinations. Draw a venous Glucose and send to the Main Lab for Analysis. CBC with [id number] 07:15:00 Test Item Value Reference Range Interpretation Comments WBC (test code = WBC) 7.5 K/cumm 4.4-10.5 N RBC (test code = RBC) 2.77 M/cumm 4.10-5.70 L Hemoglobin (test code = HGB) 8.7 gm/dL 13.4-17.4 L Hematocrit (test code = HCT) 24.7 % 38.7-52.0 L MCV (test code = MCV) 88.9 fL 80-100 N MCH (test code = MCH) 31.3 pg 27.0-32.5 N MCHC (test code = MCHC) 35.2 g/dL 32.0-37.5 N RDW (test code = RDW) 15.9 % 11.5-14.5 H Platelet Count (test code = 157 K/cumm 140-440 N PLTCT) MPV (test code = MPV) 9.0 fL Diff Method (test code = DIFFM) Auto Neutrophil (test code = NEUT) 72.8 % 36-70 H Lymphocyte (test code = LYMPH) 17.3 % 12-44 N Monocyte (test code = MONO) 8.7 % 0-11 N Eosinophil (test code = EOS) 0.9 % 0-7 N Basophil (test code = BASO) 0.4 % 0-2 N Neutro Abs (test code = ANEUT) 5.5 K/cumm 1.6-7.4 N Lymph Abs (test code = ALYMPH) 1.3 K/cumm 0.5-4.6 N [place] Abs (test code = AMONO) 0.7 K/cumm 0.0-1.2 N Eos Abs (test code = AEOS) 0.07 K/cumm 0.00-0.74 N Baso Abs (test code = ABASO) 0.0 K/cumm 0.00-0.21 N Magnesium, [id number] 07:03:00 Test Item Value Reference Range Interpretation Comments Magnesium (test code = MG) 2.0 mg/dL 1.7-2.5 N Basic Metabolic [id number] 07:03:00 Test Item Value Reference Range Interpretation Comments Sodium (test code = 137 mmol/L 135-145 N NA) Potassium (test 3.7 mmol/L 3.5-5.1 N code = K) Chloride (test code 95 mmol/L 98-105 L = CL) Carbon Dioxide 30 mmol/L 22-29 H (test code = CO2) Glucose (test code 155 mg/dL 70-115 H = GLU) Blood Urea Nitrogen 20 mg/dL 6-20 N (test code = BUN) Creatinine (test 5.7 mg/dL 0.7-1.2 H code = CREAT) Calcium (test code 9.0 mg/dL 8.3-10.5 N = CA) BUN/Creatinine 3.5 Ratio (test code = BCRATIO) Anion Gap (test 12 mmol/L 7-16 N code = AGAP) Estimated GFR (test 13 eGFR (es timated code = GFR) mL/min/1.73m2 Glomerular Ramses tration Rate) is an est imated value,calculate d from the patient's s radha creatinine usin g the MDRD equation.I t is NOT the patient 's actual GFR. The eGFR provides a more clinicallyusefu l measure of kidn ey disease than se rum creatinine alone.This calculation russell es sex and race into account, if the informationis provided. If th e race is not provided , and the patient isAfrican-Ameri can, multiply by 1.2 12. If sex is not prov ided, and thepatient is female, multipl y by 0.742. Results for patients <18 ye ars ofage have not been validated by th e MDRD study and shoul d be interpretedwith caution.eGFR Re sult Interpretation: eGFR > or = 60 is in t he Normal RangeeGF R < 60 may mean kidney diseaseeGFR < 1 5 may mean kidney failureRange s recommended by the National Kidney Foundation,http ://nkd ep.nih.gov POC Glucose, [id number] 21:40:00 Test Item Value Reference Range Interpretation Comments POC Glucose (test 129 mg/dL 70-115 H If you con chief order dispatcher your code = POCGLUC) patient crit ically ill, the [place] Accu- Chek InformII meters hould not be used for Glu cose determinations. Draw a venous Glucose and send to the Main Lab for Analysis. Hep B Surface [id number] 18:36:00 Test Item Value Reference Range Interpretation Comments Hep Bs Ag (test code = HBSAG) Nonreactive Non-Reactive A POC Glucose, [id number] 10:51:00 Test Item Value Reference Range Interpretation Comments POC Glucose (test 216 mg/dL 70-115 H If you con chief order dispatcher your code = POCGLUC) patient crit ically ill, the [place] Accu- Chek InformII meters hould not be used for Glu cose determinations. Draw a venous Glucose and send to the Main Lab for Analysis. POC Glucose, [id number] 07:57:00 Test Item Value Reference Range Interpretation Comments POC Glucose (test 164 mg/dL 70-115 H If you con chief order dispatcher your code = POCGLUC) patient crit ically ill, the [place] Accu- Chek InformII meters hould not be used for Glu cose determinations. Draw a venous Glucose and send to the Main Lab for Analysis. POC Glucose, [id number] 19:47:00 Test Item Value Reference Range Interpretation Comments POC Glucose (test 140 mg/dL 70-115 H Notify RN or MDIf you code = POCGLUC) consider you r patient critically ill, the [place] Accu-Chek InformII metershould not be used for Glucose determinations. Draw a venous Glucose and send to the Main Lab for Analysis. Troponin [id number] 19:36:00 Test Item Value Reference Range Interpretation Comments Troponin T (test code = MADHAV) 0.121 ng/mL 0.000-0.090 H CK [id number] 19:25:00 Test Item Value Reference Range Interpretation Comments CK (test code = CK) 160 U/L 39-308 N The valu e HIDE originally released by DEAN WATERS on 09/25/2017 19:1 2 waschanged to 1 60 by GINO on 09/25 19:24 CKMB (test code = 3.0 ng/mL 0.0-4.9 N CKMB) CKMB% (test code = 1.9 % 0.0-3.4 N The value HIDE originally CKMBP) released by DEAN WATERS on 09/25/2017 19:1 2 waschanged to 1 .9 by GINO on 09/25 19:24 POC Glucose, [id number] 16:42:00 Test Item Value Reference Range Interpretation Comments POC Glucose (test 123 mg/dL 70-115 H If you con chief order dispatcher your code = POCGLUC) patient crit ically ill, the [place] Accu- Chek InformII meters hould not be used for Glu cose determinations. Draw a venous Glucose and send to the Main Lab for Analysis. POC Glucose, [id number] 12:09:00 Test Item Value Reference Range Interpretation Comments POC Glucose (test 141 mg/dL 70-115 H If you con chief order dispatcher your code = POCGLUC) patient crit ically ill, the [place] Accu- Chek InformII meters hould not be used for Glu cose determinations. Draw a venous Glucose and send to the Main Lab for Analysis. Hep B Surface [id number] 07:59:00 Test Item Value Reference Range Interpretation Comments Hep Bs Ag (test code = HBSAG) Nonreactive Non-Reactive A CK [id number] 07:43:00 Test Item Value Reference Range Interpretation Comments CK (test code = CK) n/a U/L 39-308 N CKMB (test code = CKMB) 2.4 ng/mL 0.0-4.9 N CKMB% (test code = CKMBP) 0.0 % 0.0-3.4 N Troponin [id number] 07:38:00 Test Item Value Reference Range Interpretation Comments Troponin T (test code = MADHAV) 0.134 ng/mL 0.000-0.090 H Thyroid Stimulating Hormone (TSH)2017-09-25 07:38:00 Test Item Value Reference Range Interpretation Comments TSH (test code = TSH) 1.10 mIU/mL 0.270-4.200 N [id number] 07:38:00 Test Item Value Reference Range Interpretation Comments Phosphorus (test code = PO4) 3.4 mg/dL 2.70-4.50 N Comprehensive Metabolic [id number] 07:38:00 Test Item Value Reference Range Interpretation Comments Sodium (test code = 136 mmol/L 135-145 N NA) Potassium (test 3.2 mmol/L 3.5-5.1 L code = K) Chloride (test code 91 mmol/L 98-105 L = CL) Carbon Dioxide 32 mmol/L 22-29 H (test code = CO2) Glucose (test code 103 mg/dL 70-115 N = GLU) Blood Urea Nitrogen 20 mg/dL 6-20 N (test code = BUN) Creatinine (test 6.3 mg/dL 0.7-1.2 H code = CREAT) Calcium (test code 8.9 mg/dL 8.3-10.5 N = CA) Prot Total (test 6.8 g/dL 6.4-8.3 N code = TP) Albumin (test code 3.9 g/dL 3.5-5.2 N = ALB) A/G Ratio (test 1.3 Ratio code = AGRATIO) Globulin (test code 2.9 2.9-3.1 N = GLOB) Bili Total (test 0.9 mg/dL 0.1-0.9 N code = TBIL) Alk Phos (test code 59 U/L 40-129 N = APHOS) AST (test code = 48 U/L 1-40 H AST) ALT (test code = 41 U/L 1-41 N ALT) BUN/Creatinine 3.2 Ratio (test code = BCRATIO) Anion Gap (test 13 mmol/L 7-16 N code = AGAP) Estimated GFR (test 12 eGFR (es timated code = GFR) mL/min/1.73m2 Glomerular Ramses tration Rate) is an est imated value,calculate d from the patient's s radha creatinine usin g the MDRD equation.I t is NOT the patient 's actual GFR. The eGFR provides a more clinicallyusefu l measure of kidn ey disease than se rum creatinine alone.This calculation russell es sex and race into account, if the informationis provided. If th e race is not provided , and the patient isAfrican-Ameri can, multiply by 1.2 12. If sex is not prov ided, and thepatient is female, multipl y by 0.742. Results for patients <18 ye ars ofage have not been validated by jatinder tubbs MDRD study and yakelin hill be interpretedwith caution.eGFR Re sult Interpretation: eGFR > or = 60 is in t he Normal RangeeGF R < 60 may mean kidney diseaseeGFR < 1 5 may mean kidney failureRange s recommended by the National Kidney Foundation,http ://nkd ep.nih.gov Magnesium, [id number] 07:38:00 Test Item Value Reference Range Interpretation Comments Magnesium (test code = MG) 2.0 mg/dL 1.7-2.5 N CK [id number] 07:31:00 Test Item Value Reference Range Interpretation Comments CK (test code = CK) 159 U/L 39-308 N Lipid [id number] 07:31:00 Test Item Value Reference Range Interpretation Comments Cholesterol (test 118 mg/dL 0-200 N code = CHOL) Triglycerides (test 170 mg/dL 9-200 N code = TRIG) HDL (test code = 49 mg/dL 40-60 N HDL) Chol/HDL (test code 2.4 Ratio 0.0-5.0 N = CHOLPHDL) LDL, Calculated 35 0-130 N (NOTE)RISK O F HEART (test code = LDLC) DISEASEPu blished by [place] Heart AssociationAnal yte Optim al Boderline Increased RiskC HOL <200 200-239 >240TRI G <150 150-199 >200HDL Male: >60 <40HDL Female: >60 <50 LDL < 100 130-15 9 >160 LDL NEAR OPTIMAL IS 100- 129 VLDL (test code = 34 mg/dL 5-40 N VLDL) LDL/HDL (test code = 1 LDLPHDL) Glycosylated [id number] 07:24:00 Test Item Value Reference Range Interpretation Comments HBA1c (test code = HBA1C) 5.0 % 4.8-5.9 N CBC with [id number] 07:20:00 Test Item Value Reference Range Interpretation Comments WBC (test code = WBC) 6.5 K/cumm 4.4-10.5 N RBC (test code = RBC) 2.80 M/cumm 4.10-5.70 L Hemoglobin (test code = HGB) 8.8 gm/dL 13.4-17.4 L Hematocrit (test code = HCT) 24.2 % 38.7-52.0 L MCV (test code = MCV) 86.5 fL 80-100 N MCH (test code = MCH) 31.5 pg 27.0-32.5 N MCHC (test code = MCHC) 36.4 g/dL 32.0-37.5 N RDW (test code = RDW) 15.6 % 11.5-14.5 H Platelet Count (test code = 145 K/cumm 140-440 N PLTCT) MPV (test code = MPV) 8.7 fL Diff Method (test code = DIFFM) Auto Neutrophil (test code = NEUT) 78.8 % 36-70 H Lymphocyte (test code = LYMPH) 11.6 % 12-44 L Monocyte (test code = MONO) 7.6 % 0-11 N Eosinophil (test code = EOS) 1.6 % 0-7 N Basophil (test code = BASO) 0.4 % 0-2 N Neutro Abs (test code = ANEUT) 5.1 K/cumm 1.6-7.4 N Lymph Abs (test code = ALYMPH) 0.8 K/cumm 0.5-4.6 N [place] Abs (test code = AMONO) 0.5 K/cumm 0.0-1.2 N Eos Abs (test code = AEOS) 0.10 K/cumm 0.00-0.74 N Baso Abs (test code = ABASO) 0.0 K/cumm 0.00-0.21 N POC Glucose, [id number] 07:03:00 Test Item Value Reference Range Interpretation Comments POC Glucose (test 147 mg/dL 70-115 H If you con chief order dispatcher your code = POCGLUC) patient crit ically ill, the [facility]eline Accu- Chek InformII meters hould not be used for Glu cose determinations. Draw a venous Glucose and send to the Main Lab for Analysis. POC Glucose, [id number] 22:05:00 Test Item Value Reference Range Interpretation Comments POC Glucose (test 134 mg/dL 70-115 H If you con chief order dispatcher your code = POCGLUC) patient crit ically ill, the Madeline Accu- Chek InformII meters hould not be used for Glu cose determinations. Draw a venous Glucose and send to the Main Lab for Analysis. Blood Gas+Lytes+Glu+Ca+Hgb+Hct+[id number] 18:31:00 Test Item Value Reference Range Interpretation Comments pH, Blood Gas (test code = 7.513 pH Units 7.35-7.45 HH BGPH) pCO2 (test code = PCO2) 45.3 mm Hg 35-45 H pO2 (test code = PO2) 59.8 mm Hg 80-100 LL Bicarbonate (test code = 36.4 mmol/L 22.0-26.0 HH HCO3) Base Excess (test code = 12.1 mmol/L BE) O2 Saturation (test code = 93.5 % 80.0-100.0 N O2SAT) Sodium, Blood Gas (test 138 mmol/L 135-145 N code = BGNA) Potassium, Blood Gas (test 3.2 mmol/L 3.5-4.5 L code = BGK) Chloride, Blood Gas (test 92 mmol/L 98-105 L code = BGCL) Calcium, Ionized, Blood Gas 1.11 mmol/L 1.00-1.50 N (test code = BGCAI) Glucose, Blood Gas (test 91 mg/dL 75-115 N code = BGGLU) tHB (test code = RTHB) 9.2 gm/dL 12.2-17.4 L Hematocrit, Blood Gas (test 28.2 % 34.0-52.0 L code = BGHCT) O2Hb (test code = RO2HB) 91 80-100 N Carboxyhemoglobin (test 1.8 % 0.0-20.0 N code = CARHGB) Methemoglobin (test code = 1.2 % 0.0-20.0 N METHGB) FLOW (LPM) (test code = 2 L/min FLOW) Patient Temperature (test 37.0 Degrees code = PTTEMP) Celcius Comment (test code = alokrblvverqnscrit COMMENT) liz Pierre@ [id number] Puncture Site (test code = Radial. R PUNSITE) Drawing Tech ID (test code medel fi = DRAWTECH) iPAP (test code = IPAP) 0 cmH2O Respiratory Rate (test code 0 = RESP RATE) Lactic Acid, Blood Gas 0.4 mmol/L (test code = BGLA) CT CHEST W/O [id number] 16:48:03CT CHEST W/O CONTRASTLOCATION CODE: R16 HISTORY: [...] bilateral axillary, prevascular, andparatracheal lymph nodes.Influenza B [id number] 14:36:00Specimen: NasalCollected: 09/24/2017 14:04 Status: Final Last [...] 2017-09-24 13:54:00 Test Item Value Reference Range Interpretation Comments Sodium (test code = 132 mmol/L 135-145 L NA) Potassium (test 3.7 mmol/L 3.5-5.1 N Hemolyzed code = K) Chloride (test code 89 mmol/L 98-105 L = CL) Carbon Dioxide 32 mmol/L 22-29 H (test code = CO2) Glucose (test code 136 mg/dL 70-115 H = GLU) Blood Urea Nitrogen 12 mg/dL 6-20 N (test code = BUN) Creatinine (test 4.8 mg/dL 0.7-1.2 H code = CREAT) Calcium (test code 9.0 mg/dL 8.3-10.5 N = CA) Prot Total (test 7.4 g/dL 6.4-8.3 N code = TP) Albumin (test code 4.2 g/dL 3.5-5.2 N = ALB) A/G Ratio (test 1.3 Ratio code = AGRATIO) Globulin (test code 3.2 2.9-3.1 H = GLOB) Bili Total (test 0.8 mg/dL 0.1-0.9 N code = TBIL) Alk Phos (test code 56 U/L 40-129 N = APHOS) AST (test code = 72 U/L 1-40 H Hemolyzed AST) ALT (test code = 49 U/L 1-41 H ALT) BUN/Creatinine 2.5 Ratio (test code = BCRATIO) Anion Gap (test 11 mmol/L 7-16 N code = AGAP) Estimated GFR (test 16 eGFR (es timated code = GFR) mL/min/1.73m2 Glomerular Ramses tration Rate) is an est imated value,calculate d from the patient's s radha creatinine usin g the MDRD equation.I t is NOT the patient 's actual GFR. The eGFR provides a more clinicallyusefu l measure of kidn ey disease than se rum creatinine alone.This calculation russell es sex and race into account, if the informationis provided. If th e race is not provided , and the patient isAfrican-Ameri can, multiply by 1.2 12. If sex is not prov ided, and thepatient is female, multipl y by 0.742. Results for patients <18 ye ars ofage have not been validated by jatinder tubbs MDRD study and yakelin hill be interpretedwith caution.eGFR Re sult Interpretation: eGFR > or = 60 is in t he Normal RangeeGF R < 60 may mean kidney diseaseeGFR < 1 5 may mean kidney failureRange s recommended by the National Kidney Foundation,http ://nkd ep.nih.gov Troponin [id number] 13:54:00 Test Item Value Reference Range Interpretation Comments Troponin T (test code = MADHAV) 0.124 ng/mL 0.000-0.090 H [id number] 13:54:00 Test Item Value Reference Range Interpretation Comments NT ProBnp (test code = PBNP) >11428 pg/mL 0-124 H CK [id number] 13:54:00 Test Item Value Reference Range Interpretation Comments CK (test code = CK) 222 U/L 39-308 N CKMB (test code = CKMB) 3.1 ng/mL 0.0-4.9 N CKMB% (test code = CKMBP) 1.4 % 0.0-3.4 N CK [id number] 13:54:00 Test Item Value Reference Range Interpretation Comments CK (test code = CK) 222 U/L 39-308 N Partial Thromboplastin [id number] 13:43:00 Test Item Value Reference Range Interpretation Comments aPTT (test code = PTT) 35.70 seconds 24.39-37.25 N Prothrombin [id number] 13:43:00 Test Item Value Reference Range Interpretation Comments PT (test code = PT) 11.30 seconds 9.78-13.35 N INR (test code = INR) 0.99 Ratio 0.6-1.2 N Lactic Acid [id number] 13:41:00 Test Item Value Reference Range Interpretation Comments Lactic Acid, Bld (test code = LAC) 1.3 mmol/L 0.5-1.9 N CBC with [id number] 13:32:00 Test Item Value Reference Range Interpretation Comments WBC (test code = WBC) 5.3 K/cumm 4.4-10.5 N RBC (test code = RBC) 2.81 M/cumm 4.10-5.70 L Hemoglobin (test code = HGB) 9.1 gm/dL 13.4-17.4 L Hematocrit (test code = HCT) 26.3 % 38.7-52.0 L MCV (test code = MCV) 93.7 fL 80-100 N MCH (test code = MCH) 32.4 pg 27.0-32.5 N MCHC (test code = MCHC) 34.5 g/dL 32.0-37.5 N RDW (test code = RDW) 15.1 % 11.5-14.5 H Platelet Count (test code = 166 K/cumm 140-440 N PLTCT) MPV (test code = MPV) 6.1 fL Diff Method (test code = DIFFM) Auto Neutrophil (test code = NEUT) 60.1 % 36-70 N Lymphocyte (test code = LYMPH) 23.2 % 12-44 N Monocyte (test code = MONO) 11.8 % 0-11 H Eosinophil (test code = EOS) 4.4 % 0-7 N Basophil (test code = BASO) 0.6 % 0-2 N Neutro Abs (test code = ANEUT) 3.2 K/cumm 1.6-7.4 N Lymph Abs (test code = ALYMPH) 1.2 K/cumm 0.5-4.6 N [place] Abs (test code = AMONO) 0.6 K/cumm 0.0-1.2 N Eos Abs (test code = AEOS) 0.23 K/cumm 0.00-0.74 N Baso Abs (test code = ABASO) 0.0 K/cumm 0.00-0.21 N XR CHEST 1 [id number] 12:50:14XR CHEST 1 VIEWLOCATION: [id number]: None.INDICATION: CoughDISCUSSION:A single portable chest radiograph was [...]
[2020-02-26 19:41] LABS: Protime INR 1.82
[2020-02-26] MEDS ORDERED: DIPHENHYDRAMINE 50 MG/ML VIAL ONE (20:13)
[2020-02-26] MEDS ORDERED: MORPHINE 4 MG/ML SYR ONE ×2 (20:15→22:04)
[2020-02-26 22:32] VITALS: TEMP 97.3; O2SAT 100
[2020-02-26 22:38] VITALS: BP 132/81
--- NOTE | 2020-02-27 11:25 | EKG ---
Test Date: 2020-02-26 Test Time: 19:38:58 Building Specialist: SUELLEN MEASUREMENT RESULTS: Intervals: Rate: 80 RI: 154 QRSD: 86 QT: 390 QTc: 449 [place]: P: 19 RI: 154 QRS: 121 T: 115 INTERPRETIVE STATEMENTS: Normal sinus rhythm Left posterior fascicular block Abnormal ECG Compared to ECG 09/11/2019 16:36:42 Left posterior fascicular block now present Electronically Signed On 02-27-20 11:23:19 CDT by Rafael Bedolla
== END 2020-02-26 22:26 | disposition short-term general hospital (02) ==
LOC: ER 16:29
DX: S72.045A Nondisplaced fracture of base of neck of left femur, initial encounter for closed fracture (principal); W01.0XXA Fall on same level from slipping, tripping and stumbling without subsequent striking against object, initial encounter; Y92.9 Unspecified place or not applicable; Z88.6 Allergy status to analgesic agent; E11.9 Type 2 diabetes mellitus without complications; N17.9 Acute kidney failure, unspecified; Z99.2 Dependence on renal dialysis; Z21 Asymptomatic human immunodeficiency virus [HIV] infection status; Z95.1 Presence of aortocoronary bypass graft
CPT/HCPCS: 93005; 85025; 80048; 36415; 85610; 85730; 73502; 99285; J1200; J3010

== ENCOUNTER 2020-04-18 13:02 | Emergency (ER) | payer OTHER ==
--- OUTSIDE RECORDS SUMMARY | 2020-04-18 13:05 | XMS REPORT | Clinical Summary ---
:1955 Author Organization [facility] Address [address] [place] [address] Care Team Providers Name Role Phone Asked, [...] (Primary Dx); MD Sushant Viral syndrome after 04/18/2019 Social History Tobacco Use Types Packs/Day Years [...] Comments Blood Pressure 155/80 09/12/2019 9:52 PM [facility] Pulse 104 09/12/2019 9:52 PM [facility] Temperature 38.4 C (101.2 F) 09/12/2019 9:52 PM [facility] Respiratory Rate 16 09/12/2019 9:52 PM [facility] Oxygen Saturation 97% 09/12/2019 9:52 PM [facility] Inhaled Oxygen Concentration - - Weight 72.6 kg (160 lb) 09/12/2019 6:46 PM [facility] Height 170.2 cm (5' 7") 09/12/2019 6:46 PM [facility] Body Mass Index 25.06 09/12/2019 6:46 PM [facility] Plan of Treatment Health Maintenance Due Date Last Done Comments DIABETIC RETINAL EYE EXAM 1955 DIABETIC FOOT EXAM 04/24/1967 COLONOSCOPY SCREENING 04/24/2007 SHINGLES VACCINES (#1) 04/24/2007 INFLUENZA VACCINE 05/03/2020 Procedures Procedure Name Priority Date/Time Associated Comments Diagnosis CT ABDOMEN PELVIS WO STAT 09/12/2019 8:46 Res ults for this CONTRAST PM [facility] procedure are i n the results section. XR CHEST 2 VW STAT 09/12/2019 8:44 Results fo r this PM [facility] procedure are i n the results section. BLOOD CULTURE, AEROBIC STAT 09/12/2019 8:01 R esults for this & ANAEROBIC PM [facility] procedure are i n the results section. MANUAL DIFFERENTIAL STAT 09/12/2019 7:43 Resu lts for this PM [facility] procedure are i n the results section. BILIRUBIN DIRECT STAT 09/12/2019 7:43 Results for this PM [facility] procedure are i n the results section. COMPREHENSIVE METABOLIC STAT 09/12/2019 7:43 Results for this PANEL PM [facility] procedure are i n the results section. ESTIMATED GFR STAT 09/12/2019 7:43 Results fo r this PM [facility] procedure are i n the results section. VENOUS BLOOD GAS STAT 09/12/2019 7:43 Results for this PM [facility] procedure are i n the results section. TROPONIN, I-STAT STAT 09/12/2019 7:43 Results for this PM [facility] procedure are i n the results section. LACTIC ACID, I-STAT STAT 09/12/2019 7:43 Resu lts for this PM [facility] procedure are i n the results section. CBC WITH PLATELET AND STAT 09/12/2019 7:43 Re sults for this DIFFERENTIAL PM [facility] procedure are i n the results section. BLOOD CULTURE, AEROBIC STAT 09/12/2019 7:43 R esults for this & ANAEROBIC PM [facility] procedure are i n the results section. INFLUENZA ANTIGEN Routine 09/12/2019 7:43 Result s for this PM [facility] procedure are i n the results section. ECG ED PRELIMINARY Routine 09/12/2019 7:29 Resul ts for this INTERPRETATION PM [facility] procedure are in the results section. ECG 12-LEAD STAT 09/12/2019 7:25 Results for this PM [facility] procedure are i n the results section. after 04/18/[address] Abdomen Pelvis Wo Contrast (09/12/2019 8:46 PM [facility]) Specimen Narrative Performed At EXAMINATION: CT ABDOMEN [...] Radiology Results Incoming - 09/12/2019 8:56 PM [facility] EXAMINATION: CT ABDOMEN PELVIS WO CONTRAST CLINICAL [...] inflammation. Performing Organization Address City/State/Zipcode Phone Number [facility] [address] [place] [address] XR Chest 2 Vw (09/12/2019 8:44 PM [facility]) Specimen Narrative Performed At EXAMINATION: XR CHEST 2 VW JOHN CLINICAL HISTORY: sob COMPARISON: None IMPRESSION: Status post median sternotomy and valvular surgery. At rial clip present. There is mild cardiomegaly. There is mild central vasc ular congestion. There is small right pleural effusion with volume loss in the right base. Lungs are otherwise clear. There i s no pneumothorax. Visualized osseous stru ctures are intact. [facility]-[id number] Procedure Note Interface, Radiology Results Incoming - 09/12/2019 8:49 PM [facility] EXAMINATION: XR CHEST 2 VW CLINICAL HISTORY: sob COMPARISON: None IMPRESSION: Status post median sternotomy and valvul ar surgery. Atrial clip present. There is mild cardiomegaly. There is mild central vascular congestion. There is small right pleural effusion with volume loss in the right base. Lungs are otherwise clear. There is no pneumothorax. Visualized osseous stru ctures are intact. [facility]-[id number] Performing Organization Address City/[facility] Phone Number [facility] [address] [place] [address] Blood culture, aerobic & anaerobic (09/12/2019 8:01 PM [facility])Only the most recent of2 resultswithin the time period is included. [facility] Blood culture No growth after 5 days of incubation. [facility]I PERE[facility] isolate Comment: HOSPITAL Specimen Information Specimen Source: Blood Specimen Site: Hand, right Specimen Blood - Hand, right Performing Organization Address [facility] Phone Number [facility] DEPARTMENT OF PATHOLOGY AND [address] [place], [place] [address] [address] Estimated GFR (09/12/2019 7:43 PM S[facility]) [facility] Estimated GFR 12 (A) mL/min/1.73 [facility] Comment: m2 EGAN Catergory Units Interpretation [facility] G1 >=90 [...] 2014. Specimen Plasma specimen Performing Organization Address [facility]/Zipcode Phone Number DEPARTMENT OF PATHOLOGY AND [address] [place], [place] [address] [facility] [address] [place] [address] [facility] Troponin, I-Stat (09/12/2019 7:43 PM [facility]) Troponin, I-Stat 0.01 0.00 - 0.08 [facility] Comment: ng/mL EGAN 0.09 - 1.49 ng/ml May indicate increa sed risk of acute EMERGENCY CARE coronary syndrome. [place] >=1.5 ng/ml Consistent with acute myocardial infarction. The diagnostic value of a single normal or non-diagnos tic result is questionable. Serial samples at 2-6 hour i ntervals are required to rule out acute myocardial injury. Specimen Plasma specimen Performing Organization Address City/[facility] Phone Number DEPARTMENT OF PATHOLOGY AND [address] [place] [address] Lactic acid, I-Stat (09/12/2019 7:43 PM S[facility]ACK) Pathologist [facility] Lactic acid, I-Stat 2.0 0.5 - 2.2 mmol/L [facility] Specimen Plasma specimen Performing Organization Address [facility] Phone Number DEPARTMENT OF PATHOLOGY AND [address] [place] [address] Manual differential (09/12/2019 7:43 PM S[facility] TACK) Pathologist [facility] Manual differential PERFORMED [facility] Neutrophils 69.0 39.0 - 69.0 % [facility] Lymphocytes 17.0 (L) 25.0 - 45.0 % [facility] Monocytes 14.0 (H) 0.0 - 10.0 % [facility] Eosinophils 0.0 0.0 - 5.0 % [facility] Basophils 0.0 0.0 - 1.0 % [facility] Metamyelocytes 0 % [facility] Promyelocytes 0 % [facility] Platelet slide review Cayla slt decr [facility] Anisocytosis Moderate [facility] Polychromasia Moderate [facility] Spherocytes Occasional [facility] Ovalocytes Moderate [facility] Specimen Performing Organization Address [facility] Phone Number [facility] DEPARTMENT OF PATHOLOGY AND [address] [place] [phone] [facility]IC[facility] [address] [place] [address] [facility] [id number] [place] [id number] [place] [address] CBC with platelet and differential (09/12/2019 7:43 PM [facility]) Pathologist Sig nature WBC 6.31 4.50 - 11.00 k/uL [facility] RBC 3.41 (L) 4.40 - 6.00 m/uL [facility] HGB 11.3 (L) 14.0 - 18.0 g/dL [facility] HCT 33.9 (L) 41.0 - 51.0 % [facility] MCV 99.4 82.0 - 100.0 fL [facility] MCH 33.1 27.0 - 34.0 pg [facility] MCHC 33.3 31.0 - 37.0 g/dL [facility] RDW - SD 45.9 37.0 - 55.0 fL [facility] MPV 8.0 (L) 8.8 - 13.2 fL [facility] Platelet count 133 (L) 150 - 400 k/uL [facility] Neutrophils 69.0 39.0 - 69.0 % [facility] Lymphocytes 17.0 (L) 25.0 - 45.0 % [facility] Monocytes 14.0 (H) 0.0 - 10.0 % [facility] Eosinophils 0.0 0.0 - 5.0 % [facility] Basophils 0.0 0.0 - 1.0 % [facility] Specimen Blood Performing Organization Address City/State/Zipcode Phone Number DEPARTMENT OF PATHOLOGY AND [id number] [place] [phone] [facility] [id number] [place] [address] [facility] Influenza antigen (09/12/2019 7:43 PM [facility]) Influenza antigen Flue B: positive Flue A: negative [facility] Comment: [facility] Specimen Source: Nares Specimen Site: Left Specimen Nares - Left Performing Organization Address City/[facility]/Zipcode Phone Number DEPARTMENT OF PATHOLOGY AND [address] [place], [place] [phone] [address] Venous blood gas (09/12/2019 7:43 PM S[facility] TACK) Pathologist Sig nature pH, venous, POC 7.52 (H) 7.32 - 7.42 [facility] pCO2, venous, POC 41 (L) 45 - 51 mm Hg [facility] pO2, venous, POC 32 25 - 40 mm Hg [facility] Base excess, venous, 9 (H) -2 - 2 mmol/L [facility] Bicarbonate, venous, 32.9 (H) 21.0 - 28.0 [facility] mmol/L [facility] O2 saturation, 68 40 - 70 % [facility] venous, POC [facility] Specimen Blood Performing Organization Address City/[facility] Phone Number DEPARTMENT OF PATHOLOGY AND [address] [place], [place] [phone] [place] [address] [facility] [place] [place] Bilirubin direct (09/12/2019 7:43 PM S[facility] TACK) Pathologist Sig nature Bilirubin direct 0.3 0.0 - 0.3 mg/dL [facility] Specimen Plasma specimen Performing Organization Address City/[facility]/Zipcode Phone Number DEPARTMENT OF PATHOLOGY AND [address] [place] [address] CENTER Comprehensive metabolic panel (09/12/2019 7:43 PM SIDE [facility] TACK) Pathologist Sig nature Sodium 135 128 - 145 mEq/L [facility] Potassium 4.9 3.6 - 5.1 mEq/L [facility] CO2 30 18 - 33 mEq/L [facility] Chloride 91 (L) 98 - 108 mEq/L [facility] Glucose 94 73 - 118 mg/dL [facility] Calcium 9.1 8.0 - 10.3 mg/dL [facility] BUN 29 (H) 7 - 22 mg/dL [facility] Creatinine 5.5 (H) 0.7 - 1.2 mg/dL [facility] Alkaline phosphatase 76 53 - 128 U/L [facility] ALT 38 10 - 47 U/L [facility] AST 45 (H) 11 - 38 U/L [facility] Total bilirubin 0.7 0.2 - 1.6 mg/dL [facility] Albumin 3.7 3.3 - 5.5 g/dL [facility] Protein 8.2 (H) 6.4 - 8.1 g/dL [facility] Anion gap 14@ANIO 7 - 15 mEq/L [facility] A/G ratio 0.8 0.7 - 3.8 [facility] Specimen Plasma specimen Performing Organization Address City/State/Zipcode Phone Number DEPARTMENT OF PATHOLOGY AND [address] [place] [address] [place] [address] [facility] ECG ED Preliminary Interpretation - Not an Order (09/12/2019 7:29 PM [facility]) Narrative Performed At Ty Nieves MD 09/13/2019 6:41 AM ECG ED Preliminary Interpretation - Not an Order Performed by: Ty Nieves MD Authorized by: Ty Nieves MD ECG reviewed by ED Physician in the abse nce of a digital operations analyst: yes Interpretation: Interpretation: non-specific Rate: ECG rate: 96 ECG rate assessment: normal Rhythm: Rhythm: sinus rhythm Ectopy: Ectopy: none QRS: QRS axis: Normal Conduction: Conduction: normal ST segments: ST segments: Normal T waves: T waves: peaked Peaked: V3, V4, V5, V6, II, III and aVF ECG 12 lead (09/12/2019 7:25 PM [facility]) Pathologist Sig nature Ventricular rate 96 [facility] Atrial rate 96 [facility] AL interval 182 [facility] QRSD interval 80 [...] available. 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
--- OUTSIDE RECORDS SUMMARY | 2020-04-18 13:06 | XMS REPORT | Clinical Summary ---
:1955 Author Organization [facility] Address [address] [place] [address] Care Team Providers Name Role Phone Rufus [...] MG mg total) by mouth tablet daily. calcium Take 667 mg by 0 Activ e acetate,phosphat mouth 3 (three) bind, (PHOSLO) 667 times daily with mg capsule meals. lamiVUDine (EPIVIR) Take 25 mg by 0 Active 10 mg/mL mouth daily. solutionIndications: HIV carvediloL (COREG) Take 12.5 mg by 0 Active 12.5 MG tablet mouth daily. senna-docusate Take 2 tablets by 60 tablet 0 03/03/2020 Active (SENOKOT S) 8.6-50 mouth nightly. 1 mg per tablet lamiVUDine (EPIVIR) Take 2.5 mLs (25 240 [...] tablet mg total) by mouth 0 daily. HYDROcodone-acetamin Take 1 tablet by 30 tablet 0 03/03/2020 0 ophen (NORCO 5-325) mouth every 6 0 5-325 mg per tablet (six) hours as needed for Pain for up to 10 days. Max Daily Amount: 4 tablets Active Problems Problem Noted Date Fractured femoral neck 02/26/2020 Drug-induced thrombocytopenia 12/22/2018 S/P R-thoracotomy, decort, 12/17 [...] hepatitis C infection 12/03/2016 HTN (hypertension) 11/18/2014 ESRD on hemodialysis Encounters Date Type Specialty Care Team Description 02/28/2020 Anesthesia Event Sukumar Ware MD 02/27/2020 Surgery Callejas, ORIF,FEMUR Sukumar Hines MD 02/26/2020 - Hospital Encounter General Internal Florencio Anderson , Closed fracture of neck of left femur, initial encounter (HCC) (Primary Dx); 03/03/2020 Medicine ESRD on hemodia lysis (HCC); HIV infection, unspecified symptom status (HCC); Hepatic cirrhos is due to chronic hepatitis C infection (HCC); Chronic heart f ailure, unspecified heart failure type (HCC); Paroxysmal atri al fibrillation (HCC); 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, without long-term current use of insulin (HCC) after 04/18/2019 Family History Medical History Relation Name Comments [...] Vital Signs Vital Sign Reading Time Taken Blood Pressure 127/72 03/03/2020 3:15 PM CDT Pulse 79 03/03/2020 3:15 PM CDT Temperature 36.8 C (98.2 F) 03/03/2020 3:15 PM CDT Respiratory Rate 18 03/03/2020 3:15 PM CDT Oxygen Saturation 99% 03/03/2020 3:15 PM CDT Inhaled Oxygen Concentration 21% 03/02/2020 10:43 PM CDT Weight 73 kg (160 lb 15 oz) 03/01/2020 12:37 PM CDT Height 170.2 cm (5' 7") 02/27/2020 1:00 AM CDT Body Mass Index 25.21 03/01/2020 12:37 PM CDT Plan of Treatment Health Maintenance Due Date Last Done Comments DIABETIC EYE EXAM 1965 DIABETIC FOOT EXAM 1965 URINE MICROALBUMIN 1965 MEDICARE ANNUAL WELLNESS (YEAR 2 05/04/2011 or FIRST YEAR if no IPPE) PNEUMOCOCCAL VACCINE 2-64 YEARS AT 08/23/2018 08/23/2017 RISK (2 of 3 - PCV13) HEMOGLOBIN A1C 06/17/2019 12/16/2018, 01/10/2018 COLON CANCER SCREENING ANNUAL FOBT 01/05/2020 01/04/2019, 0 01/02/2019, 12/04/2018, Additional history exists INFLUENZA VACCINE (#1) 2020 08/23/2017 LIPID PANEL 12/24/2022 12/25/2019, 12/17/2018 Implants Implanted Type Area Cementing Bulk Material Operator Device Shelf Model / Identifier Expiration Serial / Date Lot Sys Atriclip Exclsn Flx 40mm [id number] - Sn/A Cardiovascular N/A: ATRICURE 07/03/2020 [id number] / Implanted: Qty: 1 on 01/10/2018 by Tasneem Black MD Heart N/A / [id number] Cath Dlys Trialysis Pwr 30cm [id number] - [id number] Catheter Left: CR BARD:ACCESS 03/01/2019 [id number] / Implanted: Qty: 1 on 01/10/2018 by Tasneem Black M D Dialysis Long Groin SYS / Term [id number] Valve [facility] Std Mstr 27mm [id number] - [id number] Valves Heart [facility] 12/27/2021 [id number] / Implanted: Qty: 1 on 01/10/2018 by Tasneem Black MD MED:CARDIAC [id number] / SURG N/A [place] For Femoral Neck System- Depuysynthes Left: DePuy 06/01/2029 REF [id number] / Implanted: Qty: 1 on 02/28/2020 by Sukumar Callejas M D Hip Orthopaedics / [id number] 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 Lenght Left: DEPUY 06/01/2029 REF [id number] / Implanted: Qty: 1 on 02/28/2020 by Sukumar Callejas M D Hip ORTHOPEDICS / [id number] Femoral Neck System Plate 2 Hole Left: DEPUY 09/01/2029 REF [id number] / Implanted: Qty: 1 on 02/28/2020 by Sukumar Callejas M D Hip ORTHOPEDICS / [id number] 5.0mm Ti Locking Scr Slf-Tpng W/T25 Stardrive 38mm Left: DEPUY 08/01/2029 REF [id number] / Implanted: Qty: 1 on 02/28/2020 by Sukumar Callejas M D Hip ORTHOPEDICS / [id number] 5.0mm Ti Locking Scr Slf Tpng W/T25 Stardrive 38mm Left: DEPUY 07/02/2029 REF [id number] / Implanted: Qty: 1 on 02/28/2020 by Sukumar Callejas M D Hip ORTHOPEDICS / [id number] Procedures Procedure Name Priority Date/Time Associated Comments Diagnosis RHYTHM STRIP - SCAN 03/07/2020 11:30 AM CDT POCT-GLUCOSE METER Routine 03/03/2020 3:17 Resul ts for this PM CDT procedure are i n the results section. POCT-GLUCOSE METER Routine 03/03/2020 12:24 Resul ts for this PM CDT procedure are i n the results section. HEMODIALYSIS INPATIENT Routine 03/03/2020 12:23 R esults for this PM CDT procedure are i n the results section. APTT Routine 03/03/2020 9:05 Results for this AM CDT procedure are i n the results section. APTT Routine 03/03/2020 6:33 Results for this AM CDT procedure are i n the results section. PROTHROMBIN TIME/INR Routine 03/03/2020 4:20 Res ults for this AM CDT procedure are i n the results section. BASIC METABOLIC PANEL Routine 03/03/2020 4:20 Re sults for this (7) AM CDT procedure are i n the results section. CBC W/PLT COUNT & AUTO Routine 03/03/2020 4:19 R esults for this DIFFERENTIAL AM CDT procedure are i n the results section. CBC W/PLT COUNT & AUTO Routine 03/03/2020 4:19 R esults for this DIFFERENTIAL AM CDT procedure are i n the results section. POCT-GLUCOSE METER Routine 03/02/2020 9:17 Resul ts for this PM CDT procedure are i n the results section. APTT Routine 03/02/2020 8:45 Results for this PM CDT procedure are i n the results section. APTT Routine 03/02/2020 6:38 Results for this PM CDT procedure are i n the results section. POCT-GLUCOSE METER Routine 03/02/2020 4:57 Resul ts for this PM CDT procedure are i n the results section. POCT-GLUCOSE METER Routine 03/02/2020 11:53 Resul ts for this AM CDT procedure are i n the results section. APTT Routine 03/02/2020 11:29 Results for this AM CDT procedure are i n the results section. POCT-GLUCOSE METER Routine 03/02/2020 8:16 Resul ts for this AM CDT procedure are i n the results section. APTT Routine 03/02/2020 5:09 Results for this AM CDT procedure are i n the results section. CBC W/PLT COUNT & AUTO Routine 03/02/2020 5:08 R esults for this DIFFERENTIAL AM CDT procedure are i n the results section. PROTHROMBIN TIME/INR Routine 03/02/2020 5:08 Res ults for this AM CDT procedure are i n the results section. CBC W/PLT COUNT & AUTO Routine 03/02/2020 5:08 R esults for this DIFFERENTIAL AM CDT procedure are i n the results section. BASIC METABOLIC PANEL Routine 03/02/2020 5:08 Re sults for this (7) AM CDT procedure are i n the results section. POCT-GLUCOSE METER Routine 03/01/2020 11:01 Resul ts for this PM CDT procedure are i n the results section. APTT Routine 03/01/2020 10:26 Results for this PM CDT procedure are i n the results section. PT/APTT Routine 03/01/2020 3:10 Results for this PM CDT procedure are i n the results section. APTT Routine 03/01/2020 3:10 Results for this PM CDT procedure are i n the results section. HEMODIALYSIS INPATIENT Routine 03/01/2020 12:40 R esults for this PM CDT procedure are i n the results section. BASIC METABOLIC PANEL WONG 03/01/2020 11:33 Re sults for this (7) AM CDT procedure are i n the results section. CBC W/PLT COUNT & AUTO Routine 03/01/2020 5:43 R esults for this DIFFERENTIAL AM CDT procedure are i n the results section. APTT Add-On 03/01/2020 5:43 Results for this AM CDT procedure are i n the results section. PROTHROMBIN TIME/INR Routine 03/01/2020 5:43 Res ults for this AM CDT procedure are i n the results section. CBC W/PLT COUNT & AUTO Routine 03/01/2020 5:43 R esults for this DIFFERENTIAL AM CDT procedure are i n the results section. BASIC METABOLIC PANEL Routine 03/01/2020 5:43 Re sults for this (7) AM CDT procedure are i n the results section. APTT Routine 02/29/2020 10:37 Results for this PM CDT procedure are i n the results section. POCT-GLUCOSE METER Routine 02/29/2020 10:19 Resul ts for this PM CDT procedure are i n the results section. POCT-GLUCOSE METER Routine 02/29/2020 3:25 Resul ts for this PM CDT procedure are i n the results section. APTT Routine 02/29/2020 3:17 Results for this PM CDT procedure are i n the results section. POCT-GLUCOSE METER Routine 02/29/2020 11:38 Resul ts for this AM CDT procedure are i n the results section. PROTHROMBIN TIME/INR Add-On 02/29/2020 9:03 Res ults for this AM CDT procedure are i n the results section. APTT Routine 02/29/2020 9:03 Results for this AM CDT procedure are i n the results section. CBC W/PLT COUNT & AUTO Routine 02/29/2020 12:51 R esults for this DIFFERENTIAL AM CDT procedure are i n the results section. APTT Routine 02/29/2020 12:51 Results for this AM CDT procedure are i n the results section. CBC W/PLT COUNT & AUTO Routine 02/29/2020 12:51 R esults for this DIFFERENTIAL AM CDT procedure are i n the results section. BASIC METABOLIC PANEL Routine 02/29/2020 12:51 Re sults for this (7) AM CDT procedure are i n the results section. POCT-GLUCOSE METER Routine 02/28/2020 11:48 Resul ts for this PM CDT procedure are i n the results section. APTT Routine 02/28/2020 6:36 Results for this PM CDT procedure are i n the results section. POCT-GLUCOSE METER Routine 02/28/2020 6:03 Resul ts for this PM CDT procedure are i n the results section. TRANSFUSION SERVICE 02/28/2020 6:00 REPORT - SCAN PM CDT APTT Routine 02/28/2020 5:12 Results for this PM CDT procedure are i n the results section. POCT-GLUCOSE METER Routine 02/28/2020 12:02 Resul ts for this PM CDT procedure are i n the results section. APTT Routine 02/28/2020 10:56 Results for this AM CDT procedure are i n the results section. POCT-GLUCOSE METER Routine 02/28/2020 6:38 Resul ts for this AM CDT procedure are i n the results section. CBC W/PLT COUNT & AUTO Routine 02/28/2020 4:31 R esults for this DIFFERENTIAL AM CDT procedure are i n the results section. CBC W/PLT COUNT & AUTO Routine 02/28/2020 4:31 R esults for this DIFFERENTIAL AM CDT procedure are i n the results section. BASIC METABOLIC PANEL Routine 02/28/2020 4:31 Re sults for this (7) AM CDT procedure are i n the results section. POCT-GLUCOSE METER Routine 02/28/2020 2:14 Resul ts for this AM CDT procedure are i n the results section. FL FLUORO NON-SPECIFIC Routine 02/28/2020 1:47 R esults for this UP TO 1 HOUR AM CDT procedure are i n the results section. APTT Routine 02/27/2020 7:46 Results for this PM CDT procedure are i n the results section. PROCEDURE W/ C-ARM 02/27/2020 7:25 Closed fracture of PM CDT neck of left femur, initial encounter (HCC) ORIF,FEMUR 02/27/2020 7:25 Closed fracture of PM CDT neck of left femur, initial encounter (HCC) HEMODIALYSIS INPATIENT Routine 02/27/2020 6:35 R esults for this PM CDT procedure are i n the results section. POCT-GLUCOSE METER Routine 02/27/2020 5:44 Resul ts for this PM CDT procedure are i n the results section. FERRITIN Routine 02/27/2020 3:19 Results for this PM CDT procedure are i n the results section. IRON, TIBC, % SAT. Routine 02/27/2020 3:19 Resul ts for this (WITHOUT FERRITIN) PM CDT procedure are in the results section. APTT Routine 02/27/2020 12:30 Results for this PM CDT procedure are i n the results section. PLATELET COUNT Routine 02/27/2020 12:30 Results f or this PM CDT procedure are i n the results section. POCT-GLUCOSE METER Routine 02/27/2020 12:01 Resul ts for this PM CDT procedure are i n the results section. HEPATITIS B SURFACE STAT 02/27/2020 10:18 Resu lts for this ANTIGEN AM CDT procedure are i n the results section. ANTIBODY IDENTIFICATION Routine 02/27/2020 8:56 Results for this AM CDT procedure are i n the results section. XR WRIST 2 VIEWS LEFT Routine 02/27/2020 8:49 Re sults for this AM CDT procedure are i n the results section. POTASSIUM Routine 02/27/2020 7:53 Results for this AM CDT procedure are i n the results section. XR HIP 2 VIEWS LEFT STAT 02/27/2020 7:02 Resu lts for this AM CDT procedure are i n the results section. XR PELVIS 1 OR 2 VIEWS STAT 02/27/2020 6:56 R esults for this AM CDT procedure are i n the results section. POCT-GLUCOSE METER Routine 02/27/2020 6:15 Resul ts for this AM CDT procedure are i n the results section. SARS-COV2/RT-PCR ([facility] Routine 02/27/2020 1:52 R esults for this & REF LABS) AM CDT procedure are i n the results section. CBC W/PLT COUNT & AUTO Routine 02/27/2020 1:23 R esults for this DIFFERENTIAL AM CDT procedure are i n the results section. TYPE AND SCREEN, Routine 02/27/2020 1:23 Results for this AUTOMATED AM CDT procedure are i n the results section. PHOSPHORUS Routine 02/27/2020 1:23 Results for this AM CDT procedure are i n the results section. MAGNESIUM Routine 02/27/2020 1:23 Results for this AM CDT procedure are i n the results section. PROTHROMBIN TIME/INR Routine 02/27/2020 1:23 Res ults for this AM CDT procedure are i n the results section. COMPREHENSIVE METABOLIC Routine 02/27/2020 1:23 Results for this PANEL AM CDT procedure are i n the results section. CBC W/PLT COUNT & AUTO Routine 02/27/2020 1:23 R esults for this DIFFERENTIAL AM CDT procedure are i n the results section. after 04/18/2019 Results RHYTHM STRIP - SCAN (03/07/2020 11:30 AM CDT) Narrative Performed At This result has an attachment that is no t available. POC-Glucose meter (03/03/2020 3:17 PM CDT)Only the most recent of18 results within the time period is included. POC-Glucose Meter 133 (H)Comment: : TESTED 70 - 110 mg/dL [facility] [address] [facility] [address] [facility], [address]: Maintenance Construction Helper/Cardiac Monitor Technician ID = [id number] for Phyllis Samson Specimen Blood Performing Organization Address City/[facility]/Zipcode Phone Number [address] [address] CENTER HEMODIALYSIS INPATIENT (03/03/2020 12:23 PM CDT) Narrative Performed At Simeon Leo RN 03/03/2020 12: 24 PM HD x 3.5 hours. UF net 2L. Treatment katie erated well. Pt awake and alert, not in distress. Lab Results Component Value Date WBC 4.5 03/03/2020 HGB 9.6 (L) 03/03/2020 HCT 28.7 (L) 03/03/2020 MCV 95.7 (H) 03/03/2020 PLT 123 (L) 03/03/2020 Lab Results Component Value Date GLUCOSE 104 03/03/2020 CALCIUM 8.1 (L) 03/03/2020 NA 132 (L) 03/03/2020 K 4.4 03/03/2020 CO2 25 03/03/2020 CL 92 (L) 03/03/2020 BUN 57 (H) 03/03/2020 CREATININE 8.85 (H) 03/03/2020 Lab Results Component Value Date HEPBSAG Nonreactive 02/27/2020 aPTT (03/03/2020 9:05 AM CDT)Only the most recent of18 resultswithin the time period is included. PTT 67.8 (H) 22.5 - 36.0 seconds [facility] Specimen Blood Performing Organization Address City/State/Zipcode Phone Number [address] [address] CENTER Daily Prothrombin time/INR while on warfarin (03/03/2020 4:20 AM CDT)Only the most recent of5 resultswithin the time period is included. Protime 32.1 (H) 11.9 - 14.2 seconds [facility] INR 3.2 <=5.9 [facility] Specimen Blood Narrative Performed At Effective 01/28/2019: PT Reference Range [facility] Change New: 11.9-14.2Previous: 11.7-14.7 RECOMMENDED COUMADIN/WARFARIN INR THERAPY RANGES STANDARD DOSE: 2.0-3.0Includes: PROPHYLAXIS for venous thrombosis, systemic embolization; TREATMENT for venous thrombosis and/or pulmonary embolus. HIGH RISK: Target INR is 2.5-3.5 for patients wiht mechanical heart valves. While on warfarin. Performing Organization Address City/State/Zipcode Phone Number [facility] [address] [place] [address] CENTER Basic Metabolic Panel (03/03/2020 4:20 AM CDT)Only the most recent of6 results within the time period is included. Sodium 132 (L) 136 - 145 meq/L [facility] Potassium 4.4 3.5 - 5.1 meq/L [facility] Chloride 92 (L) 98 - 107 meq/L [facility] CO2 25 22 - 29 meq/L [facility] BUN 57 (H) 7 - 21 mg/dL [facility] Creatinine 8.85 (H) 0.57 - 1.25 mg/dL [facility] Glucose 104 70 - 105 mg/dL [facility] Calcium 8.1 (L) 8.4 - 10.2 mg/dL [facility] EGFR 7Comment: ESTIMATED GFR IS mL/min/1.73 sq m [facility] NOT ACCURATE CREATININE ME [facility]ENTER CLEARANCE IN PREDICTING GLOMERULAR FILTRATION RATE. ESTIMATED GFR IS NOT APPLICABLE FOR DIALYSIS PATIENTS. Specimen Blood Narrative Performed At Maintenance Construction Helper JOSE Birmingham [facility] ICAL CENTER Performing Organization Address City/State/Zipcode Phone Number [facility] [address] [place] [address] CENTER CBC with platelet count + automated diff (03/03/2020 4:19 AM CDT)Only the most recent of6 resultswithin the time period is included. WBC 4.5 3.5 - 10.5 K/L [facility] RBC 3.00 (L) 4.63 - 6.08 M/L [facility] Hemoglobin 9.6 (L) 13.7 - 17.5 GM/DL [facility] Hematocrit 28.7 (L) 40.1 - 51.0 % [facility] MCV 95.7 (H) 79.0 - 92.2 fL [facility] MCH 32.0 25.7 - 32.2 pg [facility] MCHC 33.4 32.3 - 36.5 GM/DL [facility] RDW 14.2 11.6 - 14.4 % [facility] Platelets 123 (L) 150 - 450 K/CU MM [facility] MPV 8.8 (L) 9.4 - 12.4 fL [facility] nRBC 0 0 - 0 /[address] [facility] % Neutros 44 % [facility] % Lymphs 27 % [facility] % Monos 25 % [facility] % Eos 3 % [facility] % Baso 0 % [facility] # Neutros 1.99 1.78 - 5.38 K/L [facility] # Lymphs 1.20 (L) 1.32 - 3.57 K/L [facility] # Monos 1.11 (H) 0.30 - 0.82 K/L [facility] # Eos 0.15 0.04 - 0.54 K/L [facility] # Baso 0.01 0.01 - 0.08 K/L [facility] Immature Granulocytes-Relative 1 0 - 1 % C HI [facility] Specimen Blood Performing Organization Address [facility] Phone Number [facility] [address] [place] [address] CENTER PT/aPTT (03/01/2020 3:10 PM CDT) Protime 24.8 (H) 11.9 - 14.2 seconds [facility] INR 2.3 <=5.9 [facility] PTT 90.0 (H) 22.5 - 36.0 seconds [facility] Specimen Blood Narrative Performed At Effective 01/28/2019: PT Reference Range [facility] Change New: 11.9-14.2Previous: 11.7-14.7 RECOMMENDED COUMADIN/WARFARIN INR THERAPY RANGES STANDARD DOSE: 2.0-3.0Includes: PROPHYLAXIS for venous thrombosis, systemic embolization; TREATMENT for venous thrombosis and/or pulmonary embolus. HIGH RISK: Target INR is 2.5-3.5 for patients wiht mechanical heart valves. Performing Organization Address City/[facility] Hospitalcode Phone Number [facility] [address] [place] [address] CENTER HEMODIALYSIS INPATIENT (03/01/2020 12:40 PM CDT) Narrative Performed At Maria Isabel Kelly RN 03/01/20202 :57 PM Procedure tolerated. Vital signs stable. HD duration 4 hours UF 2 L via l eft forearm AV Graft. Lab Results Component Value Date WBC 5.4 03/01/2020 HGB 10.7 (L) 03/01/2020 HCT 31.5 (L) 03/01/2020 MCV 93.8 (H) 03/01/2020 PLT 108 (L) 03/01/2020 Lab Results Component Value Date GLUCOSE 98 03/01/2020 CALCIUM 8.8 03/01/2020 NA 135 (L) 03/01/2020 K 3.6 03/01/2020 CO2 25 03/01/2020 CL 96 (L) 03/01/2020 BUN 24 (H) 03/01/2020 CREATININE 4.01 (H) 03/01/2020 No components found for: HEPSAG Vitals: 03/01/20 1315 BP: 112/78 Pulse: 97 Resp: Temp: SpO2: 98% TRANSFUSION SERVICE REPORT - SCAN (02/28/2020 6:00 PM CDT) Narrative Performed At This result has an attachment that is no t available. [place] fluoro non-specific up to 1 hour (02/28/2020 1:47 AM CDT) Specimen Narrative Performed At Fluoroscopic unit utilized for a procedure performed i n the OR.No GE RIS interpretation was requested.Refer to the operativ e report for findings.Refer to PACS for patient radiation dose information. Procedure Note Interface, External Ris In - 02/28/2020 1:50 AM CDT Fluoroscopic unit utilized for a procedu re performed in the OR. No interpretation was requested. Refer to the operative r eport for findings. Refer to PACS for patient radiation dose information. Performing Organization Address City/State/Zipcode Phone Number GE RIS HEMODIALYSIS INPATIENT (02/27/2020 6:35 PM CDT) Narrative Performed At Serena Rachel RN 02/27/2020 6:35 PM Lab Results Component Value Date GLUCOSE 99 02/27/2020 CALCIUM 9.2 02/27/2020 NA 132 (L) 02/27/2020 K 5.0 02/27/2020 CO2 24 02/27/2020 CL 91 (L) 02/27/2020 BUN 58 (H) 02/27/2020 CREATININE 8.80 (H) 02/27/2020 Lab Results Component Value Date WBC 6.5 02/27/2020 HGB 13.8 02/27/2020 HCT 42.5 02/27/2020 MCV 98.2 (H) 02/27/2020 PLT 116 (L) 02/27/2020 Results for CALEB LUGO ( ) as of 02/27/2020 18:35 Ref. Range 02/27/2020 10:18 HBsAg Screen Latest Ref Range: Nonreacti veNonreactive HD X 3.5 hours completed.Net UF -2L VSS.Patient tolerated procedure well.Serena Rachel RN Iron, TIBC, % sat. (without ferritin) (02/27/2020 3:19 PM CDT) Iron 125.0 40.0 - 160.0 ug/dL [facility] TIBC 219 (L) 250 - 450 ug/dL [facility] Iron % Saturation 57 (H) 20 - 55 % [facility] Specimen Blood Narrative Performed At Maintenance Construction Helper ID - JOEL W [facility] Performing Organization Address City/[facility] Phone Number [address] [address] CENTER Ferritin (02/27/2020 3:19 PM CDT) Ferritin 5,182.19 (H) 5.00 - 275.00 ng/mL [facility] Specimen Blood Narrative Performed At Maintenance Construction Helper ID - OJEL W [facility] Performing Organization Address [facility] Hospitalcoaz Phone Number [address] [address] CENTER Platelet count (02/27/2020 12:30 PM CDT) Platelets 116 (L) 150 - 450 K/CU MM [facility] Specimen Blood Narrative Performed At Maintenance Construction Helper ID - [id number] [facility] No clot Performing Organization Address City/[facility]/Zipcode Phone Number [address] [address] CENTER Hepatitis B surface antigen (02/27/2020 10:18 AM CDT) HBsAg Screen Nonreactive Nonreactive [facility] Specimen Blood Narrative Performed At Specimen is considered negative for HBsAg. [facility] Performing Organization Address City/State/Zipcode Phone Number [facility] [address] [place] [address] CENTER Antibody identification (02/27/2020 8:56 AM CDT) ANTIBODY ID ([id number]) UNID IgG SAFETRACE T X Antibody Consult SIGNED OUTComment: An IgG antibody of SAFETRACE [place] undetermined specificity is detected, transfuse crossmatch compatible RBCs.Electronic Signature: Cale Shirley M.D. Specimen Performing Organization Address [facility] [facility] Phone Number [place] XR wrist 2 views left (02/27/2020 8:49 AM CDT) Specimen Narrative Performed At FINAL REPORT GE RIS TECHNIQUE: Frontal, oblique, and lateral views of the left wrist. INDICATION: Fall immobility. COMPARISON: None. FINDINGS: No acute fractures or dislocations. Joint spaces are within normal limits. There are atherosclerotic calcifications of the vessels. Surgical clips project over the distal radius.. IMPRESSION: No acute osseous abnormality. Signed: Bhavin Artis MD Report Verified Date/Time:02/27/2020 09:19:08 Reading Location: [facility] B1 C013Y CT Body R eading Room Procedure Note Interface, External Ris In - 02/27/2020 9:21 AM CDT FINAL REPORT TECHNIQUE: Frontal, oblique, and lateral views of the left wrist. INDICATION: Fall immobility. COMPARISON: None. FINDINGS: No acute fractures or dislocations. Joint spaces are within normal limits. There are atherosclerotic calcifications of the vessels. Surgical clips project over the distal radius.. IMPRESSION: No acute osseous abnormality. Signed: Bhavin Artis MD Report Verified Date/Time: 02/27/2020 0 9:19:08 Reading Location: [facility] B1 C013Y CT Body R eading Room Performing Organization Address City/State/Zipcode Phone Number GE RIS Potassium (02/27/2020 7:53 AM CDT) Potassium 5.0 3.5 - 5.1 meq/L [facility] [place] CENTER Specimen Blood Narrative Performed At Maintenance Construction Helper ID - PIAYA L [facility] Performing Organization Address City/State/Zipcode Phone Number [facility] [address] [place] [address] CENTER XR hip 2 views left (02/27/2020 7:02 AM CDT) Specimen Narrative Performed At FINAL REPORT GE RIS RAD, PELVIS, 1 OR 2 VIEWS, RAD, HIP, 2 V IEWS, LEFT INDICATION: femoral neck fx COMPARISON: None TECHNIQUE: AP view of the pelvis, AP and lateral view of the left hip FINDINGS/IMPRESSION: Fracture of the left femoral neck with m edial rotation of the distal fragment and slight overriding. Remainde r of the pelvic ring is intact. The ilioischial and ileoileal li deyanira are intact. Signed: Mihaela Mahajan MD Report Verified Date/Time:02/27/2020 07:23:52 Reading Location: [facility] [address] [place] [address] Room Procedure Note Interface, External Ris In - 02/27/2020 7:26 AM CDT FINAL REPORT RAD, PELVIS, 1 OR 2 VIEWS, RAD, HIP, 2 V IEWS, LEFT INDICATION: femoral neck fx COMPARISON: None TECHNIQUE: AP view of the pelvis, AP and lateral view of the left hip FINDINGS/IMPRESSION: Fracture of the left femoral neck with m edial rotation of the distal fragment and slight overriding. Remainde r of the pelvic ring is intact. The ilioischial and ileoileal li deyanira are intact. Signed: Mihaela Mahajan MD Report Verified Date/Time: 02/27/2020 0 7:23:52 Reading Location: [facility] C[address] [facility] Room Performing Organization Address City/State/Zipcode Phone Number GE RIS XR pelvis 1 or 2 views (02/27/2020 6:56 AM CDT) Specimen Narrative Performed At FINAL REPORT GE RIS RAD, PELVIS, 1 OR 2 VIEWS, RAD, HIP, 2 V IEWS, LEFT INDICATION: femoral neck fx COMPARISON: None TECHNIQUE: AP view of the pelvis, AP and lateral view of the left hip FINDINGS/IMPRESSION: Fracture of the left femoral neck with m edial rotation of the distal fragment and slight overriding. Remainde r of the pelvic ring is intact. The ilioischial and ileoileal li deyanira are intact. Signed: Mihaela Mahajan MD Report Verified Date/Time:02/27/2020 07:23:52 Reading Location: [facility] [address] [place] [address] Room Procedure Note Interface, External Ris In - 02/27/2020 7:26 AM CDT FINAL REPORT RAD, PELVIS, 1 OR 2 VIEWS, RAD, HIP, 2 V IEWS, LEFT INDICATION: femoral neck fx COMPARISON: None TECHNIQUE: AP view of the pelvis, AP and lateral view of the left hip FINDINGS/IMPRESSION: Fracture of the left femoral neck with m edial rotation of the distal fragment and slight overriding. Remainde r of the pelvic ring is intact. The ilioischial and ileoileal li deyanira are intact. Signed: Mihaela Mahajan MD Report Verified Date/Time: 02/27/2020 0 7:23:52 Reading Location: [facility] [address] [facility] Room Performing Organization Address City/State/Zipcode Phone Number [place] SARS-CoV2/RT-PCR (Asymptomatic ONLY) (02/27/2020 1:52 AM CDT) SARS-COV2/RT-PCR Negative Not Detected, Negative [facility] SARS-COV-2 PERFORMING LAB [facility] Specimen Other Narrative Performed At Negative result for this test determines that [facility] SARS-CoV-2 RNA was not present in the specimen above the Limit of Detection (LOD).However, Negative results do not preclude SARS-CoV-2 infection and should not be used as the sole basis for treatment or patient management decisions. Negative results must be combined with clinical observations, patient history, and epidemiological information. A false negative result may occur if a specimen is improperly collected, transported or handled.A false negative result should be considered if patient's recent exposures or clinical presentation indicate that COVID-19 (SARS-CoV-2) is likely and diagnostic tests for other causes of illness are negative.Re-testing should be considered in cases of suspected false negatives. The limit of detection for this assay is 800 copies/mL. This SARS CoV-2 test is a real-time RT-PCR test intended for the qualitative detection of nucleic acid from SARS-CoV-2 in a nasopharyngeal swab specimen collected from individuals suspected of COVID-19 by their healthcare provider. This test has not been Food and Drug Administration (FDA) cleared or approved.This is a modified version of an approved Emergency Use Authorization (EUA) and is in the process of review by the FDA. Once authorized by the FDA, the issued EUA will be effective until the declaration that circumstances exist justifying the authorization of the emergency use of in vitro diagnostic tests for detection and/or diagnosis of COVID-19 is terminated under Section 564(b)(2) of the Act or the EUA is revoked under Section 564(g) of the Act. Fact Sheet for Healthcare Providers: https://www.VBOX/sites/default/files/pro duct/documents/Fact_Sheet_HC_Providers_Lyra_SA RS-CoV-2.pdf Fact Sheet for Healthcare Patients: https://www.VBOX/sites/default/files/pro duct/documents/Fact_Sheet_Patients_Lyra_SARS-C oV-2.pdf Performing Laboratory: [address] [place] [address] Performing Organization Address City/[facility] Hospital[facility] [place] [address] CENTER Type and screen, automated (02/27/2020 1:23 AM CDT) ABO/RH AUTOMATED (BEAKER) AB POSITIVE [facility] Ab Scrn POSITIVEComment: ECHO 2 [facility] Specimen Blood Performing Organization Address City/[facility] Phone Number [address] [address] Phosphorus (02/27/2020 1:23 AM CDT) Phosphorus 7.3 (H) 2.3 - 4.7 mg/dL [facility] Specimen Blood Narrative Performed At Maintenance Construction Helper ID - AKSHAT Chapman [facility] Performing Organization Address City/[facility] Phone Number [address] [address] CENTER Magnesium (02/27/2020 1:23 AM CDT) Magnesium 1.9 1.6 - 2.6 mg/dL [facility] Specimen Blood Narrative Performed At Maintenance Construction Helper ID - AKSHAT Chapman [facility] Performing Organization Address [facility] Phone Number [address] [address] [place] Comprehensive metabolic panel (02/27/2020 1:23 AM CDT) Protein, Total 9.6 (H) 6.0 - 8.3 gm/dL [facility] Albumin 4.3 3.5 - 5.0 g/dL [facility] Alkaline Phosphatase 85 40 - 150 U/L [facility] Total Bilirubin 1.1 0.2 - 1.2 mg/dL [facility] Sodium 132 (L) 136 - 145 meq/L [facility] Potassium 5.9 (H) 3.5 - 5.1 meq/L [facility] Chloride 91 (L) 98 - 107 meq/L [facility] CO2 24 22 - 29 meq/L [facility] BUN 58 (H) 7 - 21 mg/dL [facility] Creatinine 8.80 (H) 0.57 - 1.25 mg/dL [facility] Glucose 99 70 - 105 mg/dL [facility] Calcium 9.2 8.4 - 10.2 mg/dL [facility] AST 44 (H) 5 - 34 U/L [facility] ALT 36 6 - 55 U/L [facility] ESPINOSA [facility] EGFR 7Comment: ESTIMATED GFR mL/min/1.73 sq m [facility] IS NOT ACCURATE [facility] CREATININE CLEARANCE IN PREDICTING GLOMERULAR FILTRATION RATE. ESTIMATED GFR IS NOT APPLICABLE FOR DIALYSIS PATIENTS. Specimen Blood Narrative Performed At Maintenance Construction Helper ID - PIAYA L [facility]ENTERKierraAN[facility] Performing Organization Address City/State/Zipcode Phone Number [address] [address] CENTER after 04/18/2019 Insurance Payer Benefit Plan / Group Subscriber ID Type Phone A ddress MEDICARE MEDICARE A B xxxxxxxxxxx Medicare CDC REVIEW CDC REVIEW xxxxxxxx [address] [place], [place] [phone] Advance Directives For more information, please contact:[facility] CountyDafne lizzette[address] [phone] Code Status Date Activated Date Inactivated Comments Full Code 02/26/2020 11:34 PM 03/03/2020 7:41 PM This code status was determined by: Patient Full Code 12/16/2018 12:58 PM 01/06/2019 5:42 [...]
--- OUTSIDE RECORDS SUMMARY | 2020-04-18 13:33 | XMS REPORT | Continuity of Care Document ---
:1955 Author Organization [facility] t Address [address] [place] [address] Care Team Providers Name Role Phone UNKNOWN, REFFERING Primary Care Physician Unavailable Justin PÉREZ, Florencio Lai Attending Clinician Arnold Ware MD Attending Clinician Donny Callejas MD Attending Clinician RAHUL OCAMPO Attending Clinician Unavailable Sushant Nieves MD Attending Clinician BRI CAMPBELL Attending Clinician Unavailable TROY SOLANO Attending Clinician Unavailable SANJUANA BREWER Attending Clinician Unavailable CHARI Attending Clinician Unavailable BHAVNA GERBER Attending Clinician Unavailable KAZ TURPIN Attending Clinician Unavailable EDENILSON ANTONIO Attending Clinician Unavailable Xavier HOLLOWAY Attending Clinician Unavailable ELIANA Attending Clinician Unavailable SHILA JAFFE MD MEric Attending Clinician Unavailable RAHUL OCAMPO Admitting Clinician Unavailable KAZ TURPIN Admitting Clinician Unavailable TROY SOLANO Admitting Clinician Unavailable SANJUANA BREWER Admitting Clinician Unavailable Xavier HOLLOWAY Admitting Clinician Unavailable ELIANA Admitting Clinician Unavailable SHILA JAFFE MD, MMalka., M Admitting Clinician Unavail able Payers Payer Name Policy Policy Number Effective Expiration Source Type Date Date MEDICAREMEDICARE A xxxxxxxxxxx CHARISMA S jon Abraham Bxxxxxxxxxxx[facility] CDC REVIEWCDC xxxxxxxx [facility] REVIEW[facility]PO - Medica l [facility] [phone] MEDICAREMEDICARE PART A xxxxxxxxxxx 2010 Sargeant AND 00:00:00 [place]ish Bxxxxxxxxxxx2010-Pre [place] Condition Condition Condition Status Onset Resolution Last Treating Co mments Source Name Details Category Date Date Treatment Clinician Date Fractured Fractured Disease Active [facility] femoral femoral 6- [facility] - neck neck 00:00: Medical 00 [place] Drug-induc Drug-induc Disease Active [facility] ed ed 12-22 [facility] - thrombocyt thrombocyt 00:00: Vt dical openia openia 00 [place] S/P S/P Disease Active [facility] R-thoracot R-thoracot 12-17 Khushbu kes - nilesh, nilesh, 00:00: Medical decort, decort, 00 Center 12/17 by 12/17 by Sam Vargas Recurrent Recurrent Disease Active 2017-[address] [facility] right right 2-12 [facility] - pleural pleural 00:00: Medical effusion effusion 00 Center Pleural Pleural Disease Active 2017-[address] effusion effusion 09-28 [facility] - 00:00: Medical 00 [place] Chronic Chronic Disease Active [facility] anticoagul anticoagul 05-28 Khushbu kes - ation ation 00:00: Medical 00 [place] Scrotal Scrotal Disease Active [facility] edema edema 05-28 [facility] - 00:00: Medical 00 [place] Groin Groin Disease Active [facility] abscess [...] (end Disease Active [facility] stage stage - [facility] - renal renal 00:00: Medical disease) disease) 00 Center 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 St (diabetes (diabetes 01-09 [facility] - mellitus, mellitus, 00:00: Medi shakira type II), type II), 00 Cent er controlled controlled Paroxysmal Paroxysmal Disease Active [facility] atrial atrial 01-08 [facility] - fibrillati fibrillati 00:00: Me dical on on 00 Center Hepatic Hepatic Disease Active [facility] cirrhosis cirrhosis 12-03 [facility] - due to due to 00:00: Medical chronic chronic 00 Center hepatitis hepatitis C C infection infection HTN HTN Disease Active [facility] (hypertens (hypertens 3-19 [facility] - ion) ion) 00:00: Medical 00 Center ESRD on ESRD on Disease Active [facility] hemodialys hemodialys [facility] Allergies, Adverse Reactions, Alerts Allergy Allergy Status Severity Reaction(s) Onset Inactive Treating Comm ents Source Name Type Date Date Clinician Codeine Drug Active Other (See Pt denies [facility] Intolera Comments) 12-[address] - nce 00:00: ce to Medical 00 pain meds Center 12/18/18 Family History Family Member Diagnosis Comments Start Date Stop Date Source Natural father Diabetes [facility] Natural mother Heart disease [facility] Social History Social Habit Start Date Stop Date Quantity Comments [facility] Std Drinks History [facility] Meth odist Alcohol Binge Sex Assigned At [facility] Alcohol intake 2019-09-12 2019-09-12 Lifetime [facility] thodist 00:00:00 00:00:00 non-drinker (finding) History SDWI 2019-09-12 2019-09-12 1 [facility] Meth odist Alcohol Frequency 00:00:00 00:00:00 Smoking Status Start Date Stop Date Source Never smoker [facility] [place] Medications Ordered Filled Start Stop Current Ordering Indication Dosage Frequency Signature Comments Components Source Medication Medication Date Date Medication? Clinician (SIG) Name Name arron 2020- Yes 2{tbl} QD Take [address] ate 03-03 07-02 tablets by [facility] - (SENOKOT S) 00:00: 23:59 mouth Medi shakira 8.6-50 mg 00 :00 nightly. Center per tablet HYDROcodone 2020-0 2020- No 1{tbl} Take [address] -acetaminop 7-02 07-12 tablet by Khushbu alan (NORCO 00:00: 23:59 mouth Medic al 5-325) 00 :00 every 6 Center 5-325 mg (six) per tablet hours as needed for Pain for up to 10 days. Max Daily Amount: 4 tablets carvediloL 2020-0 Yes 12.5mg QD Take 12.[address] (COREG) 6-27 mg by [facility] - 12.5 MG 01:12: mouth Medical tablet 34 daily. Center lamiVUDine 2020-0 Yes HIV 25mg QD Take [address] (EPIVIR) 10 6-27 by mouth [facility] - mg/mL 01:08: daily. Medical solution 07 Center calcium 2020-0 Yes 667mg Take 667 [facility] acetate,shayla 6-27 mg by Lumaddison - sphat bind, 01:05: mouth 3 Med ical (PHOSLO) 18 (three) Center 667 mg times capsule daily with meals. lamiVUDine 2020-0 Yes Q.5D Take by Luis ton (EPIVIR) 10 -11 mouth 2 Metho di mg/mL 18:52: (two) st solution 25 times a day. sulfamethox 2020-0 Yes 1{tbl} Q.5D Take 1 Ho usye azole-trime 1-11 tablet by Met [facility]right thoprim 18:52: mouth 2 st (BACTRIM 25 (two) DS) 800-160 times a mg per day. tablet codeine-gua 2020-0 Yes acute pain 5mL Q.[id number] Take 5 mL López ifenesin 09-12 [id number] by mouth 3 Methodi (GUAIFENESI 18:52: 3D (three) st N AC) 25 times a 10-100 mg/5 day as mL liquid needed for cough .acute pain. clotrimazol 2020-0 Yes Q.5D Apply Bert on e - topically Methodi (LOTRIMIN) 18:52: 2 (two) st 1 % cream 25 times a day. traMADol 2020-0 Yes acute pain 50mg Q6H Take 50 mg López (ULTRAM) 50 -11 by mouth Meth lora mg tablet 18:52: every 6 st 24 (six) hours as needed for moderate pain .acute pain. ergocalcife 2020-0 Yes [id number] Q7D Take [place] 1-11 50,000 [...] No 667mg Take [address] acetate 5-07 05-06 capsule [facility] - (PHOSLO) 00:00: 23:59 (667 mg Medic al 667 mg 00 :00 total) by Center capsule mouth 2 (two) times daily before meals. losartan 2019- No 50mg QD Take [address] (COZAAR) 50 - 05-06 tablet (50 L ukes - MG tablet 00:00: 23:59 mg total) Me dical 00 :00 by mouth Center daily. warfarin 2017-[address] (COUMADIN) 2-19 patient [facility] - 6 MG tablet 00:00: [facility] 00 ns for Center details, 12 mg on Saturday, Saturday and Saturday, and 11 mg on Saturday, , Saturday, Saturday. carvedilol 2017-09 2019- No 12.5mg Q.5D Take 1 CH I [...] daily. Medical tablet 47 Center ergocalcife Yes [id number] Q7D Take [facility] rol 9-17 50,000 [facility] - (VITAMIN 17:54: Units by Medic al D2) 50,[address] unit a week. capsule aspirin 81 Yes 81mg QD Take [address] MG EC 6-24 by mouth [facility] - tablet 22:06: daily. [facility] 28 Center cholecalcif Yes Take by [facility] gavin, 4-02 [facility], 08:57: Medica l 2,000 [...] Time Observation Value Comments Source Systolic blood 2020-03-03 15:15:00 127 mm[Hg] [facility] Diastolic blood 2020-03-03 15:15:00 72 mm[Hg] [facility] Heart rate 2020-03-03 15:15:00 79 /min [facility] Body temperature 2020-03-03 15:15:00 36.78 Marjorie [facility] Respiratory rate 2020-03-03 15:15:00 18 /min [facility] Oxygen saturation in 2020-03-03 15:15:00 99 /min [facility] - Arterial blood by Medical Ce nter Pulse oximetry Body weight Measured 2020-03-01 12:37:00 73 kg [facility] BMI 2020-03-01 12:37:00 25.21 kg/m2 [facility] Body height 2020-02-27 01:00:00 170.2 cm [facility] Systolic blood 2019-09-12 21:52:03 155 mm[Hg] Luisto n [facility] pressure Diastolic blood 2019-09-12 21:52:03 80 mm[Hg] Bert on [facility] pressure Heart rate 2019-09-12 21:52:03 104 /min [facility] Body temperature 2019-09-12 21:52:03 38.44 Marjorie [place] [facility] Respiratory rate 2019-09-12 21:52:03 16 /min Luis belcher [facility] Oxygen saturation in 2019-09-12 21:52:03 97 /min Rene Wilson Arterial blood by Pulse oximetry Body height 2019-09-12 18:46:00 170.2 cm Rene Wilson Body weight 2019-09-12 18:46:00 72.576 kg Rene Wilson BMI 2019-09-12 18:46:00 25.06 kg/m2 López [facility] Procedures Procedure Date / Time Performing Clinician Source Performed RHYTHM STRIP - SCAN 2020-03-07 11:30:22 ProviderHeriberto [facility] [id number] 2020-03-05 00:00:00 ENCPL [id number] 2020-03-05 00:00:00 ENCPL 9F5T07B 2020-03-05 00:00:00 ENCPL 2V4D25H 2020-03-05 00:00:00 ENCPL 2Q7I87E 2020-03-05 00:00:00 ENCPL 6F7Q11T 2020-03-05 00:00:00 ENCPL [id number] 2020-03-05 00:00:00 ENCPL 9G0B59E 2020-03-05 00:00:00 ENCPL 4E1Z20V 2020-03-05 00:00:00 ENCPL 6B8S91F 2020-03-05 00:00:00 ENCPL [id number] 2020-03-05 00:00:00 ENCPL 1M2U84U 2020-03-05 00:00:00 ENCPL [id number] 2020-03-05 00:00:00 ENCPL 4U0P97H 2020-03-05 00:00:00 ENCPL 8O9L26Z 2020-03-05 00:00:00 ENCPL 0Z1I05L 2020-03-05 00:00:00 ENCPL 0T2O34B 2020-03-05 00:00:00 ENCPL 3N6S43S 2020-03-05 00:00:00 ENCPL 1I2U83D 2020-03-05 00:00:00 ENCPL 0T1P82M 2020-03-05 00:00:00 ENCPL [id number] 2020-03-05 00:00:00 ENCPL POCT-GLUCOSE METER 2020-03-03 15:17:00 Justin Florencio Lai [facility] POCT-GLUCOSE METER 2020-03-03 12:24:00 Justin Florencio Lai [facility] HEMODIALYSIS INPATIENT 2020-03-03 12:23:00 Abena SquiresDafne [facility] APTT 2020-03-03 09:05:00 Justin Florencio Lai [facility] APTT 2020-03-03 06:33:00 Justin Florencio Lai [facility] BASIC METABOLIC PANEL (7) 2020-03-03 04:20:00 JustinFlorencio [facility] PROTHROMBIN TIME/INR 2020-03-03 04:20:00 Mckennajose malexandraFlorencio [facility] CBC W/PLT COUNT & AUTO 2020-03-03 04:19:00 Florencio Ocampo [facility] POCT-GLUCOSE METER 2020-03-02 21:17:00 JustinFlorencio [facility] APTT 2020-03-02 20:45:00 JustinFlorencio [facility] APTT 2020-03-02 18:38:00 JustinFlorencio [facility] POCT-GLUCOSE METER 2020-03-02 16:57:00 KinzaalexandraFlorencio [facility] POCT-GLUCOSE METER 2020-03-02 11:53:00 JustinFlorencio [facility] APTT 2020-03-02 11:29:00 KinzaalexandraFlorencio [facility] POCT-GLUCOSE METER 2020-03-02 08:16:00 JustinFlorencio [facility] APTT 2020-03-02 05:09:00 Florencio Ocampo [facility] BASIC METABOLIC PANEL (7) 2020-03-02 05:08:00 Florencio Ocampo [facility] PROTHROMBIN TIME/INR 2020-03-02 05:08:00 Florencio Ocamporamakrishna [facility] CBC W/PLT COUNT & AUTO 2020-03-02 05:08:00 Lety Ocampojessee Lai [facility] I [facility] POCT-GLUCOSE METER 2020-03-01 23:01:00 Lety Ocampojessee Lai [facility] APTT 2020-03-01 22:26:00 Florencio Ocamporamakrishna [facility] APTT 2020-03-01 15:10:00 uJstin Florencio Lai [facility] PT/APTT 2020-03-01 15:10:00 Lety Ocampojessee Lai [facility] HEMODIALYSIS INPATIENT 2020-03-01 12:40:00 Abena Squires [facility] BASIC METABOLIC PANEL (7) 2020-03-01 11:33:00 Florencio Ocamporamakrishna [facility] BASIC METABOLIC PANEL (7) 2020-03-01 05:43:00 Justin Florencio Lai [facility] PROTHROMBIN TIME/INR 2020-03-01 05:43:00 Florencio Ocamporamakrishna [facility] APTT 2020-03-01 05:43:00 Mckennajose malexandra Florencio Jaeramakrishna [facility] CBC W/PLT COUNT & AUTO 2020-03-01 05:43:00 Florencio Ocamporamakrishna I [facility] APTT 2020-02-29 22:37:00 Mckennajose malexandra Florencio Lai [facility] POCT-GLUCOSE METER 2020-02-29 22:19:00 Justin Florencio Lai [facility] POCT-GLUCOSE METER 2020-02-29 15:25:00 Kinzaalexandra Florencio Lai [facility] APTT 2020-02-29 15:17:00 Kinzaalexandra Florencio Lai [facility] POCT-GLUCOSE METER 2020-02-29 11:38:00 Florencio Ocampo [facility] APTT 2020-02-29 09:03:00 Florencio Ocampo [facility] PROTHROMBIN TIME/INR 2020-02-29 09:03:00 Mihai Estrella [facility] BASIC METABOLIC PANEL (7) 2020-02-29 00:51:00 Florencio Ocampo [facility] APTT 2020-02-29 00:51:00 Florencio Ocampo [facility] CBC W/PLT COUNT & AUTO 2020-02-29 00:51:00 Florencio Ocampo [facility] I [facility] POCT-GLUCOSE METER 2020-02-28 23:48:00 Florencio Ocampo [facility] APTT 2020-02-28 18:36:00 Florencio Ocampo [facility] POCT-GLUCOSE METER 2020-02-28 18:03:00 Florencio Ocampo [facility] TRANSFUSION SERVICE 2020-02-28 18:00:[address] [facility] APTT 2020-02-28 17:12:00 Florencio Ocampo [facility] POCT-GLUCOSE METER 2020-02-28 12:02:00 Florencio Ocamop [facility] APTT 2020-02-28 10:56:00 Florencio Ocampo [facility] POCT-GLUCOSE METER 2020-02-28 06:38:00 Florencio Ocampo [facility] BASIC METABOLIC PANEL (7) 2020-02-28 04:31:00 Florencio Ocampo [facility] CBC W/PLT COUNT & AUTO 2020-02-28 04:31:[address] [facility] POCT-GLUCOSE METER 2020-02-28 02:14:00 Florencio Ocampo [facility] FL FLUORO NON-SPECIFIC UP 2020-02-28 01:47:00 Stoney Callejas [facility] 1 HOUR [facility] APTT 2020-02-27 19:46:00 Florencio Ocampo [facility] ORIF,FEMUR 2020-02-27 19:25:00 Sukumar Callejas [facility] PROCEDURE W/ C-ARM 2020-02-27 19:25:00 Sukumar Callejas [facility] HEMODIALYSIS INPATIENT 2020-02-27 18:35:06 Abena Squires [facility] POCT-GLUCOSE METER 2020-02-27 17:44:00 [facility] IRON, TIBC, % SAT. 2020-02-27 15:19:[address] [facility] (WITHOUT FERRITIN) Medical Cente r FERRITIN 2020-02-27 15:19:00 [facility] PLATELET COUNT 2020-02-27 12:30:00 Florencio Ocampo ramakrishna [facility] APTT 2020-02-27 12:30:00 Florencio Ocampo ramakrishna [facility] POCT-GLUCOSE METER 2020-02-27 12:01:00 Florencio Ocampo [facility] HEPATITIS B SURFACE 2020-02-27 10:18:00 Abena Squires CH, I [facility] ANTIBODY IDENTIFICATION 2020-02-27 08:56:00 Florencio Ocampo [facility] XR WRIST 2 VIEWS LEFT 2020-02-27 08:49:00 Florencio Ocampo [facility] POTASSIUM 2020-02-27 07:53:00 Florencio Ocampo [facility] XR HIP 2 VIEWS LEFT 2020-02-27 07:02:00 Kay Peoples [facility] XR PELVIS 1 OR 2 VIEWS 2020-02-27 06:56:00 Kay Peoples I [facility] POCT-GLUCOSE METER 2020-02-27 06:15:00 Florencio Ocampoliz [facility] SARS-COV2/RT-PCR ([facility] & 2020-02-27 01:52:00 Caleb Martinez [facility] - REF LABS) Medical Center COMPREHENSIVE METABOLIC 2020-02-27 01:23:00 Caleb Martinez [facility] PROTHROMBIN TIME/INR 2020-02-27 01:23:00 Caleb Martinez [facility] MAGNESIUM 2020-02-27 01:23:00 Caleb Martinez [facility] PHOSPHORUS 2020-02-27 01:23:00 Caleb Martinez [facility] TYPE AND SCREEN, 2020-02-27 01:23:[address] [facility] CBC W/PLT COUNT & AUTO 2020-02-27 01:23:[address] [facility] CT ABDOMEN PELVIS WO 2019-09-12 20:46:00 Ty Nieevsist CONTRAST XR CHEST 2 VW 2019-09-12 20:44:31 Ty Nieves BLOOD CULTURE, AEROBIC & 2019-09-12 20:01:00 Ty Nieves ANAEROBIC INFLUENZA ANTIGEN 2019-09-12 19:43:00 Ty Nieves on [facility] BLOOD CULTURE, AEROBIC & 2019-09-12 19:43:00 Ty Nieves ANAEROBIC CBC WITH PLATELET AND 2019-09-12 19:43:00 Ty Nieves [facility] DIFFERENTIAL LACTIC ACID, I-STAT 2019-09-12 19:43:00 Ty Nieves [facility] TROPONIN, I-STAT 2019-09-12 19:43:00 Ty Nieves n [facility] VENOUS BLOOD GAS 2019-09-12 19:43:00 Ty Nieves [facility] ESTIMATED GFR 2019-09-12 19:43:00 Ty Nieves COMPREHENSIVE METABOLIC 2019-09-12 19:43:00 Ty Nieves PANEL BILIRUBIN DIRECT 2019-09-12 19:43:00 Ty Nieves MANUAL DIFFERENTIAL 2019-09-12 19:43:00 Ty Nieves [place] [facility] [facility] ECG ED PRELIMINARY 2019-09-12 19:29:23 Ty Nieves INTERPRETATION ECG 12-LEAD 2019-09-12 19:25:17 Ty Nievesist [id number] 2019-01-08 00:00:00 ENCPL [id number] 2019-01-08 00:00:00 ENCPL 1U2T02B 2019-01-08 00:00:00 ENCPL [id number] 2019-01-08 00:00:00 ENCPL Plan of Care Planned Activity Planned Date Details Comments Source Future Scheduled 2022-12-[address] [facility] - Test 00:00:00 (procedure) [code = Medical Center 88569804] Future Scheduled 2020-05-03 INFLUENZA VACCINE Damaris [place] [facility] Test 00:00:00 [code = INFLUENZA VACCINE] Future Scheduled 2020-05-03 INFLUENZA VACCINE (#1) [facility] Test 00:00:00 [code = INFLUENZA Medical Ce nter VACCINE (#1)] Future Scheduled 2020-01-[address] [facility] - Test 00:00:00 malignant neoplasm of Medica l Center colon (procedure) [code = 057003537] Future Scheduled 2019-06-[address] Khushbu kes - Test 00:00:00 [facility] Center (procedure) [code = 73538467] Future Scheduled 2018-08-[address] [facility] - Test 00:00:00 2-64 YEARS AT RISK (2 Medica l Center of 3 - PCV13) [code = PNEUMOCOCCAL VACCINE 2-64 YEARS AT RISK (2 of 3 - PCV13)] Future Scheduled 2011-05-[address] [facility] - Test 00:00:00 WELLNESS (YEAR 2 or Medical Center FIRST YEAR if no IPPE) [code = MEDICARE ANNUAL WELLNESS (YEAR 2 or FIRST YEAR if no IPPE)] Future Scheduled 2007-04-24 COLONOSCOPY SCREENING [place] [facility] Test 00:00:00 [code = COLONOSCOPY SCREENING] Future Scheduled 2007-04-24 SHINGLES VACCINES (#1) [place] [facility] Test 00:00:00 [code = SHINGLES VACCINES (#1)] Future Scheduled 1967-04-24 DIABETIC FOOT EXAM [place] [facility] Test 00:00:00 [code = DIABETIC FOOT EXAM] Future Scheduled 1967 DIABETIC EYE EXAM [facility] Test 00:00:00 [code = DIABETIC EYE Medical Center EXAM] Future Scheduled [address] [facility] - Test 00:00:00 examination Medical Center (regime/therapy) [code = 876790907] Future Scheduled 1967 Urine screening [facility] Test 00:00:00 protein (procedure) Medical Center [code = 139626648] Future Scheduled 1955 DIABETIC RETINAL EYE [facility] [facility] Test 00:00:00 EXAM [code = DIABETIC RETINAL EYE EXAM] Encounters Start End Encounter Admission Attending Care Care Encounter Source Date/Time Date/Time Type Type Clinicians Facility Department ID 2019-11-09 2019-11-09 Outpatient [facility] MED [id number] [facility] 08:51:00 08:51:00 2019-09-12 2019-09-12 Emergency [facility] [id number] [place] [address] 00:00:00 00:00:00 TY [facility] 2017-11-18 2017-11-20 [facility] [id number] 13:43:00 13:54:00 [facility] 2017-11-07 2017-11-07 Emergency E [facility] MED [id number] [address] 20:22:00 20:22:00 [facility] 2017-10-06 2017-10-06 [facility] [id number] [address] [facility] 14:25:00 14:25:00 [facility] Results Test Description Test Time Test Comments Results Result Comments Source POC-Glucose meter 2020-03-03 15:36:00 Test Item Value Reference Range Interpretation Comme nts POC-Glucose Meter (test code = 133 mg/dL 70-110 H : TESTED AT [facility] [address] [facility] 1538) [facility], 770 30: Film Or Tape Librarian/Techni kush ID = [id number] for Eulalio Samson na Lab Interpretation (test code = Abnormal 51806-9) [facility] [id number] 15:36:00 Test Item Value Reference Range Interpretation Comments POC-GLUCOSE METER 133 mg/dL 70-110 H : TESTED A T [facility] 6720 (BEAKER) (test code = FOSTER Paul [facility], 1538) [address]: Film Or Tape Librarian/Techni kush ID = [id number] for Wi lliams, Areiona POCT-GLUCOSE [id number] 12:38:00 Test Item Value Reference Range Interpretation Comments POC-GLUCOSE METER 100 mg/dL 70-110 : TESTED A T [facility] [address] (BEAKER) (test code = FOSTER Paul [facility], 1538) [address]: Film Or Tape Librarian/Techni kush ID = [id number] for Wi lliams, Areiona HEMODIALYSIS [id number] 12:23:00Chnona, Simeon Gallego RN 03/03/2020 12:24 PMHD x 3.5 hours. UF net 2L. Treatment tolerated well. Pt awake and alert, not in [...] Lab Results Component Value Date HEPBSAG Nonreactive 02/27/2020[facility] 09:28:00 Test Item Value Reference Range Interpretation Comments PTT (test code = 32244-7) 67.8 22.5- 36.0 seconds H Lab Interpretation (test code = Abnormal 65619-9) [facility] 09:28:00 Test Item Value Reference Range Interpretation Comments PARTIAL THROMBOPLASTIN TIME 67.8 seconds 22.5-36.0 H (BEAKER) (test code = 760) [id number] 07:14:00 Test Item Value Reference Range Interpretation Comments PARTIAL THROMBOPLASTIN TIME 146.9 seconds 22.5-36.0 H (BEAKER) (test code = 760) CBC with platelet count + automated [id number] 05:40:00 Test Item Value Reference Range Interpretation Comments WBC (test code = 6690-2) 4.5 3.5- 10.5 K/L RBC (test code = 789-8) 3.00 4.63- 6.08 M/L L MCHC (test code = 786-4) 33.4 32.3- 36.5 GM/DL L Hematocrit (test code = 4544-3) 28.7 % 40.1-51 L MCV (test code = 787-2) 95.7 fL 79-92.2 H MCH (test code = 785-6) 32.0 pg 25.7-32.2 RDW (test code = 788-0) 14.2 % 11.6-14.4 Platelets (test code = 777-3) 123 150- 450 K/CU MM L MPV (test code = 33952-6) 8.8 fL 9.4-12.4 L nRBC (test code = 413) 0 0- 0 /100 WBC % Neutros (test code = 429) 44 % % Lymphs (test code = 430) 27 % % Monos (test code = 431) 25 % % Eos (test code = 432) 3 % % Baso (test code = 437) 0 % # Neutros (test code = 670) 1.99 1.78- 5.38 K/L # Lymphs (test code = 414) 1.20 1.32- 3.57 K/L L # Monos (test code = 415) 1.11 0.30- 0.82 K/L H # Eos (test code = 416) 0.15 0.04- 0.54 K/L # Baso (test code = 417) 0.01 0.01- 0.08 K/L Immature Granulocytes-Relative 1 % 0-1 (test code = 2801) Lab Interpretation (test code = Abnormal 35041-3) [facility] W/PLT COUNT & AUTO [id number] 05:40:00 Test Item Value Reference Range Interpretation Comments WHITE BLOOD CELL COUNT (BEAKER) 4.5 K/ L 3.5-10.5 (test code = 775) RED BLOOD CELL COUNT (BEAKER) 3.00 M/ L 4.63-6.08 L (test code = 761) HEMOGLOBIN (BEAKER) (test code = 9.6 GM/DL 13.7-17.5 L 410) HEMATOCRIT (BEAKER) (test code = 28.7 % 40.1-51.0 L 411) MEAN CORPUSCULAR VOLUME (BEAKER) 95.7 fL 79.0-92.2 H (test code = 753) MEAN CORPUSCULAR HEMOGLOBIN 32.0 pg 25.7-32.2 (BEAKER) (test code = 751) MEAN CORPUSCULAR HEMOGLOBIN CONC 33.4 GM/DL 32.3-36.5 (BEAKER) (test code = 752) RED CELL DISTRIBUTION WIDTH 14.2 % 11.6-14.4 (BEAKER) (test code = 412) PLATELET COUNT (BEAKER) (test 123 K/CU MM 150-450 L code = 756) MEAN PLATELET VOLUME (BEAKER) 8.8 fL 9.4-12.4 L (test code = 754) NUCLEATED RED BLOOD CELLS 0 /100 WBC 0-0 (BEAKER) (test code = 413) NEUTROPHILS RELATIVE PERCENT 44 % (BEAKER) (test code = 429) LYMPHOCYTES RELATIVE PERCENT 27 % (BEAKER) (test code = 430) MONOCYTES RELATIVE PERCENT 25 % (BEAKER) (test code = 431) EOSINOPHILS RELATIVE PERCENT 3 % (BEAKER) (test code = 432) BASOPHILS RELATIVE PERCENT 0 % (BEAKER) (test code = 437) NEUTROPHILS ABSOLUTE COUNT 1.99 K/ L 1.78-5.38 (BEAKER) (test code = 670) LYMPHOCYTES ABSOLUTE COUNT 1.20 K/ L 1.32-3.57 L (BEAKER) (test code = 414) MONOCYTES ABSOLUTE COUNT (BEAKER) 1.11 K/ L 0.30-0.82 H (test code = 415) EOSINOPHILS ABSOLUTE COUNT 0.15 K/ L 0.04-0.54 (BEAKER) (test code = 416) BASOPHILS ABSOLUTE COUNT (BEAKER) 0.01 K/ L 0.01-0.08 (test code = 417) IMMATURE GRANULOCYTES-RELATIVE 1 % 0-1 PERCENT (BEAKER) (test code = 2801) Basic Metabolic [id number] 05:24:00 Test Item Value Reference Range Interpretation Comments Sodium (test code = 132 meq/L 136-145 L 2951-2) Potassium (test code = 4.4 meq/L 3.5-5.1 2823-3) Chloride (test code = 92 meq/L 98-107 L 2075-0) CO2 (test code = 25 meq/L 22-29 2028-9) BUN (test code = 57 mg/dL 7-21 H 3094-0) Creatinine (test code 8.85 mg/dL 0.57-1.25 H = 2160-0) Glucose (test code = 104 mg/dL 70-105 2345-7) Calcium (test code = 8.1 mg/dL 8.4-10.2 L 78332-7) EGFR (test code = 7 mL/min/1.73 [place] [address]-1) NOT ACCURATE CREATININE CLEARANCE IN PREDICTING GLOMERULAR FILTRATION RATE . ESTIMATED GFR I S NOT APPLICABLE FOR DIALYSIS PATIENTS. ALVIN (test code = ALVIN) Film Or Tape Librarian ID - LORENZO W Lab Interpretation Abnormal (test code = 73043-3) [facility] [id number] 05:24:00 Test Item Value Reference Range Interpretation Comments SODIUM (BEAKER) 132 meq/L 136-145 L (test code = 381) POTASSIUM (BEAKER) 4.4 meq/L 3.5-5.1 (test code = 379) CHLORIDE (BEAKER) 92 meq/L 98-107 L (test code = 382) CO2 (BEAKER) (test 25 meq/L 22-29 code = 355) BLOOD UREA NITROGEN 57 mg/dL 7-21 H (BEAKER) (test code = 354) CREATININE (BEAKER) 8.85 mg/dL 0.57-1.25 H (test code = 358) GLUCOSE RANDOM 104 mg/dL 70-105 (BEAKER) (test code = 652) CALCIUM (BEAKER) 8.1 mg/dL 8.4-10.2 L (test code = 697) EGFR (BEAKER) (test 7 mL/min/1.73 ESTIMAT ED GFR IS code = 1092) sq m NOT ACCURATE CREATININE CLEARANCE IN PREDICTING GLOMERULAR FILTRATION RATE . ESTIMATED GFR I S NOT APPLICABLE FOR DIALYSIS PATIEN TS. Film Or Tape Librarian ID - LORENZO WDann mariey Prothrombin time/INR while on [id number] 04:52:00 Test Item Value Reference Range Interpretation Comments Protime (test code = 32.1 11.9- 14.2 H 5902-2) seconds INR (test code = 3.2 <=5.9 6301-6) ALVIN (test code = ALVIN) Effective 01/28/2019: PT Reference Range ChangeNew: 11.9-14.2 Previous: 11.7-14.7 RECOMMENDED COUMADIN/WARFARIN INR THERAPY RANGESSTANDARD DOSE: 2.0-3.0 Includes: PROPHYLAXIS for venous thrombosis, systemic embolization; TREATMENT for venous thrombosis and/or pulmonary embolus.HIGH RISK: Target INR is 2.5-3.5 for patients wiht mechanical heart valves. While on warfarin. Lab Interpretation Abnormal (test code = 25896-2) [facility] Center[id number] 04:52:00 Test Item Value Reference Range Interpretation Comments PROTIME (BEAKER) (test code = 32.1 seconds 11.9-14.2 H 759) INR (BEAKER) (test code = 370) 3.2 <=5.9 Effective 01/28/2019: PT Reference Range ChangeNew: 11.9-14.2 Previous: 11.7- 14.7RECOMMENDED COUMADIN/WARFARIN INR THERAPY RANGESSTANDARD DOSE: 2.0-3.0 Includes: PROPHYLAXIS for venous thrombosis, systemic embolization; TREATMENT for venous thrombosis and/or pulmonary embolus.HIGH RISK: Target INR is2.5-3.5 for patients wiht mechanical heart valves.While on warfarin.POCT-GLUCOSE METER 2020-03-02 21:30:00 Test Item Value Reference Range Interpretation Comments POC-GLUCOSE METER 128 mg/dL 70-110 H : TESTED A T [facility] [address] (BEAKER) (test code = [facility], 1538) [address]: Film Or Tape Librarian/Techni kush ID = [id number] for KATIA RAO [id number] 21:05:00 Test Item Value Reference Range Interpretation Comments PARTIAL THROMBOPLASTIN TIME 66.8 seconds 22.5-36.0 H (BEAKER) (test code = 760) [id number] 19:49:00 Test Item Value Reference Range Interpretation Comments PARTIAL THROMBOPLASTIN TIME > seconds 22.5-36.0 HH (BEAKER) (test code = 760) POCT-GLUCOSE [id number] 17:09:00 Test Item Value Reference Range Interpretation Comments POC-GLUCOSE METER 145 mg/dL 70-110 H : TESTED A T [facility] 67[address] (BEAKER) (test code = [facility], 1538) 34900: Film Or Tape Librarian/Techni kush ID = [id number] for Christina Chisholm POCT-GLUCOSE [id number] 12:10:00 Test Item Value Reference Range Interpretation Comments POC-GLUCOSE METER 113 mg/dL 70-110 H : TESTED A T [facility] [address] (BEAKER) (test code = [facility], 1538) 591[address]: Film Or Tape Librarian/Techni kush ID = [id number] for Christina Chisholm [id number] 11:50:00 Test Item Value Reference Range Interpretation Comments PARTIAL THROMBOPLASTIN TIME 96.6 seconds 22.5-36.0 H (BEAKER) (test code = 760) POCT-GLUCOSE [id number] 08:28:00 Test Item Value Reference Range Interpretation Comments POC-GLUCOSE METER 150 mg/dL 70-110 H : TESTED A T [facility] [address] (BEAKER) (test code = [facility], 1538) 128[address]: Film Or Tape Librarian/Techni kush ID = [id number] for Christina Chisholm BASIC METABOLIC [id number] 06:15:00 Test Item Value Reference Range Interpretation Comments SODIUM (BEAKER) 132 meq/L 136-145 L (test code = 381) POTASSIUM (BEAKER) 4.1 meq/L 3.5-5.1 (test code = 379) CHLORIDE (BEAKER) 93 meq/L 98-107 L (test code = 382) CO2 (BEAKER) (test 25 meq/L 22-29 code = 355) BLOOD UREA NITROGEN 39 mg/dL 7-21 H (BEAKER) (test code = 354) CREATININE (BEAKER) 6.84 mg/dL 0.57-1.25 H (test code = 358) GLUCOSE RANDOM 105 mg/dL 70-105 (BEAKER) (test code = 652) CALCIUM (BEAKER) 8.0 mg/dL 8.4-10.2 L (test code = 697) EGFR (BEAKER) (test 10 mL/min/1.73 ESTIMA JAYLA GFR IS code = 1092) sq m NOT ACCURATE CREATININE CLEARANCE IN PREDICTING GLOMERULAR FILTRATION RATE . ESTIMATED GFR I S NOT APPLICABLE FOR DIALYSIS PATIEN TS. Film Or Tape Librarian ID - BSCBC W/PLT COUNT & AUTO [id number] 06:12:00 Test Item Value Reference Range Interpretation Comments WHITE BLOOD CELL COUNT (BEAKER) 4.9 K/ L 3.5-10.5 (test code = 775) RED BLOOD CELL COUNT (BEAKER) 3.18 M/ L 4.63-6.08 L (test code = 761) HEMOGLOBIN (BEAKER) (test code = 10.4 GM/DL 13.7-17.5 L 410) HEMATOCRIT (BEAKER) (test code = 30.5 % 40.1-51.0 L 411) MEAN CORPUSCULAR VOLUME (BEAKER) 95.9 fL 79.0-92.2 H (test code = 753) MEAN CORPUSCULAR HEMOGLOBIN 32.7 pg 25.7-32.2 H (BEAKER) (test code = 751) MEAN CORPUSCULAR HEMOGLOBIN CONC 34.1 GM/DL 32.3-36.5 (BEAKER) (test code = 752) RED CELL DISTRIBUTION WIDTH 14.3 % 11.6-14.4 (BEAKER) (test code = 412) PLATELET COUNT (BEAKER) (test 107 K/CU MM 150-450 L code = 756) MEAN PLATELET VOLUME (BEAKER) 8.7 fL 9.4-12.4 L (test code = 754) NUCLEATED RED BLOOD CELLS 0 /100 WBC 0-0 (BEAKER) (test code = 413) NEUTROPHILS RELATIVE PERCENT 54 % (BEAKER) (test code = 429) LYMPHOCYTES RELATIVE PERCENT 17 % (BEAKER) (test code = 430) MONOCYTES RELATIVE PERCENT 26 % (BEAKER) (test code = 431) EOSINOPHILS RELATIVE PERCENT 2 % (BEAKER) (test code = 432) BASOPHILS RELATIVE PERCENT 0 % (BEAKER) (test code = 437) NEUTROPHILS ABSOLUTE COUNT 2.63 K/ L 1.78-5.38 (BEAKER) (test code = 670) LYMPHOCYTES ABSOLUTE COUNT 0.85 K/ L 1.32-3.57 L (BEAKER) (test code = 414) MONOCYTES ABSOLUTE COUNT (BEAKER) 1.28 K/ L 0.30-0.82 H (test code = 415) EOSINOPHILS ABSOLUTE COUNT 0.10 K/ L 0.04-0.54 (BEAKER) (test code = 416) BASOPHILS ABSOLUTE COUNT (BEAKER) 0.02 K/ L 0.01-0.08 (test code = 417) IMMATURE GRANULOCYTES-RELATIVE 1 % 0-1 PERCENT (BEAKER) (test code = 2801) [id number] 05:43:00 Test Item Value Reference Range Interpretation Comments PARTIAL THROMBOPLASTIN TIME 61.8 seconds 22.5-36.0 H (BEAKER) (test code = 760) PROTHROMBIN [id number] 05:42:00 Test Item Value Reference Range Interpretation Comments PROTIME (BEAKER) (test code = 25.4 seconds 11.9-14.2 H 759) INR (BEAKER) (test code = 370) 2.4 <=5.9 Effective 01/28/2019: PT Reference Range ChangeNew: 11.9-14.2 Previous: 11.7- 14.7RECOMMENDED COUMADIN/WARFARIN INR THERAPY RANGESSTANDARD DOSE: 2.0-3.0 Includes: PROPHYLAXIS for venous thrombosis, systemic embolization; TREATMENT for venous thrombosis and/or pulmonary embolus.HIGH RISK: Target INR is2.5-3.5 for patients wiht mechanical heart valves.While on warfarin.POCT-GLUCOSE METER 2020-03-01 23:12:00 Test Item Value Reference Range Interpretation Comments POC-GLUCOSE METER 122 mg/dL 70-110 H : TESTED Ev Wade [facility] [address] (BEAKER) (test code = [address], 1538) [address]: Film Or Tape Librarian/Techni kush ID = [id number] for AN BENITA ERNANDEZ [id number] 22:49:00 Test Item Value Reference Range Interpretation Comments PARTIAL THROMBOPLASTIN TIME 86.0 seconds 22.5-36.0 H (BEAKER) (test code = 760) [id number] 15:29:00 Test Item Value Reference Range Interpretation Comments Protime (test code = 24.8 11.9- 14.2 H 5902-2) seconds INR (test code = 2.3 <=5.9 6301-6) PTT (test code = 90.0 22.5- 36.0 H 15457-3) seconds ALVIN (test code = ALVIN) Effective 01/28/2019: PT Reference Range ChangeNew: 11.9-14.2 Previous: 11.7-14.7 RECOMMENDED COUMADIN/WARFARIN INR THERAPY RANGESSTANDARD DOSE: 2.0-3.0 Includes: PROPHYLAXIS for venous thrombosis, systemic embolization; TREATMENT for venous thrombosis and/or pulmonary embolus.HIGH RISK: Target INR is 2.5-3.5 for patients wiht mechanical heart valves. Lab Interpretation Abnormal (test code = 24964-0) [facility] CenterPT/[id number] 15:29:00 Test Item Value Reference Range Interpretation Comments PROTIME (BEAKER) (test code = 24.8 seconds 11.9-14.2 H 759) INR (BEAKER) (test code = 370) 2.3 <=5.9 PARTIAL THROMBOPLASTIN TIME 90.0 seconds 22.5-36.0 H (BEAKER) (test code = 760) Effective 01/28/2019: PT Reference Range ChangeNew: 11.9-14.2 Previous: 11.7- 14.7RECOMMENDED COUMADIN/WARFARIN INR THERAPY RANGESSTANDARD DOSE: 2.0-3.0 Includes: PROPHYLAXIS for venous thrombosis, systemic embolization; TREATMENT for venous thrombosis and/or pulmonary embolus.HIGH RISK: Target INR is2.5-3.5 for patients wiht mechanical heart valves.[id number] 15:29:00 Test Item Value Reference Range Interpretation Comments PARTIAL THROMBOPLASTIN TIME 90.0 seconds 22.5-36.0 H (BEAKER) (test code = 760) HEMODIALYSIS [id number] 12:40:00Maria Isabel Kelly RN 03/01/2020 2:57 PMProcedure tolerated. Vital signs stable.HD duration 4 hours UF 2 L via left forearm AV Graft. Lab Results Component Value Date WBC 5.4 03/01/2020 HGB 10.7 (L) 03/01/2020 HCT 31.5 (L) 03/01/2020 MCV 93.8 (H) 03/01/2020 PLT 108 (L) 03/01/2020 Lab ResultsComponent Value Date GLUCOSE 98 03/01/2020 CALCIUM 8.8 03/01/2020 NA 135 (L) 03/01/2020 K 3.6 03/01/2020 CO2 25 03/01/2020 CL 96 (L) 03/01/2020 BUN 24 (H) 03/01/2020 CREATININE 4.01 (H) 03/01/2020 No components found for: HEPSAG Vitals: 03/01/20 1315 BP: 112/78 Pulse: 97 Resp: Temp: SpO2:98[facility] [id number] 12:20:00 Test Item Value Reference Range Interpretation Comments SODIUM (BEAKER) 135 meq/L 136-145 L (test code = 381) POTASSIUM (BEAKER) 3.6 meq/L 3.5-5.1 (test code = 379) CHLORIDE (BEAKER) 96 meq/L 98-107 L (test code = 382) CO2 (BEAKER) (test 25 meq/L 22-29 code = 355) BLOOD UREA NITROGEN 24 mg/dL 7-21 H (BEAKER) (test code = 354) CREATININE (BEAKER) 4.01 mg/dL 0.57-1.25 H (test code = 358) GLUCOSE RANDOM 98 mg/dL 70-105 (BEAKER) (test code = 652) CALCIUM (BEAKER) 8.8 mg/dL 8.4-10.2 (test code = 697) EGFR (BEAKER) (test 18 mL/min/1.73 ESTIMA JAYLA GFR IS code = 1092) sq m NOT ACCURATE CREATININE CLEARANCE IN PREDICTING GLOMERULAR FILTRATION RATE . ESTIMATED GFR I S NOT APPLICABLE FOR DIALYSIS PATIEN TS. Film Or Tape Librarian ID - ELLSTON FCBC W/PLT COUNT & AUTO [id number] 07:29:00 Test Item Value Reference Range Interpretation Comments WHITE BLOOD CELL COUNT (BEAKER) 5.4 K/ L 3.5-10.5 (test code = 775) RED BLOOD CELL COUNT (BEAKER) 3.36 M/ L 4.63-6.08 L (test code = 761) HEMOGLOBIN (BEAKER) (test code = 10.7 GM/DL 13.7-17.5 L 410) HEMATOCRIT (BEAKER) (test code = 31.5 % 40.1-51.0 L 411) MEAN CORPUSCULAR VOLUME (BEAKER) 93.8 fL 79.0-92.2 H (test code = 753) [...] (test code = 413) NEUTROPHILS RELATIVE PERCENT 60 % (BEAKER) (test code = 429) LYMPHOCYTES RELATIVE PERCENT 19 % (BEAKER) (test code = 430) MONOCYTES RELATIVE PERCENT 18 % (BEAKER) (test code = 431) EOSINOPHILS RELATIVE PERCENT 2 % (BEAKER) (test code = 432) BASOPHILS RELATIVE PERCENT 1 % (BEAKER) (test code = 437) NEUTROPHILS ABSOLUTE COUNT 3.24 K/ L 1.78-5.38 (BEAKER) (test code = 670) LYMPHOCYTES ABSOLUTE COUNT 1.04 K/ L 1.32-3.57 L (BEAKER) (test code = 414) MONOCYTES ABSOLUTE COUNT (BEAKER) 0.98 K/ L 0.30-0.82 H (test code = 415) EOSINOPHILS ABSOLUTE COUNT 0.09 K/ L 0.04-0.54 (BEAKER) (test code = 416) BASOPHILS ABSOLUTE COUNT (BEAKER) 0.03 K/ L 0.01-0.08 (test code = 417) IMMATURE GRANULOCYTES-RELATIVE 1 % 0-1 PERCENT (BEAKER) (test code = 2801) [id number] 07:20:00 Test Item Value Reference Range Interpretation Comments PARTIAL THROMBOPLASTIN TIME 61.2 seconds 22.5-36.0 H (BEAKER) (test code = 760) While on warfarin.BASIC METABOLIC [id number] 07:06:00 Test Item Value Reference Range Interpretation Comments SODIUM (BEAKER) 129 meq/L 136-145 L (test code = 381) POTASSIUM (BEAKER) 4.6 meq/L 3.5-5.1 (test code = 379) CHLORIDE (BEAKER) 88 meq/L 98-107 L (test code = 382) CO2 (BEAKER) (test 22 meq/L 22-29 code = 355) BLOOD UREA NITROGEN 80 mg/dL 7-21 H (BEAKER) (test code = 354) CREATININE (BEAKER) 10.71 mg/dL 0.57-1.25 H (test code = 358) GLUCOSE RANDOM 98 mg/dL 70-105 (BEAKER) (test code = 652) CALCIUM (BEAKER) 7.7 mg/dL 8.4-10.2 L (test code = 697) EGFR (BEAKER) (test 6 mL/min/1.73 ESTIMAT ED GFR IS code = 1092) sq m NOT ACCURATE CREATININE CLEARANCE IN PREDICTING GLOMERULAR FILTRATION RATE . ESTIMATED GFR I S NOT APPLICABLE FOR DIALYSIS PATIEN TS. Film Or Tape Librarian ID - ANTONIA FPROTHROMBIN TIME/[id number] 06:37:00 Test Item Value Reference Range Interpretation Comments PROTIME (BEAKER) (test code = 23.1 seconds 11.9-14.2 H 759) INR (BEAKER) (test code = 370) 2.1 <=5.9 Effective 01/28/2019: PT Reference Range ChangeNew: 11.9-14.2 Previous: 11.7- 14.7RECOMMENDED COUMADIN/WARFARIN INR THERAPY RANGESSTANDARD DOSE: 2.0-3.0 Includes: PROPHYLAXIS for venous thrombosis, systemic embolization; TREATMENT for venous thrombosis and/or pulmonary embolus.HIGH RISK: Target INR is2.5-3.5 for patients wiht mechanical heart valves.While on warfarin.[id number] 23:03:00 Test Item Value Reference Range Interpretation Comments PARTIAL THROMBOPLASTIN TIME 54.4 seconds 22.5-36.0 H (BEAKER) (test code = 760) POCT-GLUCOSE [id number] 22:30:00 Test Item Value Reference Range Interpretation Comments POC-GLUCOSE METER 96 mg/dL 70-110 : TESTED A T [facility] [address] (BEAKER) (test code = [facility], 1538) 209[address]: Film Or Tape Librarian/Techni kuhs ID = [id number] for BENITA MASSEY POCT-GLUCOSE [id number] 15:59:00 Test Item Value Reference Range Interpretation Comments POC-GLUCOSE METER 133 mg/dL 70-110 H : TESTED A T [facility] [address] (BEAKER) (test code = [facility], 1538) 959[address]: Film Or Tape Librarian/Techni kush ID = [id number] for Raquel Raoa [id number] 15:38:00 Test Item Value Reference Range Interpretation Comments PARTIAL THROMBOPLASTIN TIME 88.8 seconds 22.5-36.0 H (BEAKER) (test code = 760) POCT-GLUCOSE [id number] 12:08:00 Test Item Value Reference Range Interpretation Comments POC-GLUCOSE METER 130 mg/dL 70-110 H : TESTED A T [facility] [address] (BEAKER) (test code = [facility], 1538) 12200: Film Or Tape Librarian/Techni kush ID = [id number] for Raquel Raoa PROTHROMBIN TIME/[id number] 11:48:00 Test Item Value Reference Range Interpretation Comments PROTIME (BEAKER) (test code = 22.5 seconds 11.9-14.2 H 759) INR (BEAKER) (test code = 370) 2.0 <=5.9 Effective 01/28/2019: PT Reference Range ChangeNew: 11.9-14.2 Previous: 11.7- 14.7RECOMMENDED COUMADIN/WARFARIN INR THERAPY RANGESSTANDARD DOSE: 2.0-3.0 Includes: PROPHYLAXIS for venous thrombosis, systemic embolization; TREATMENT for venous thrombosis and/or pulmonary embolus.HIGH RISK: Target INR is2.5-3.5 for patients wiht mechanical heart valves.[id number] 09:34:00 Test Item Value Reference Range Interpretation Comments PARTIAL THROMBOPLASTIN TIME 74.6 seconds 22.5-36.0 H (BEAKER) (test code = 760) CBC W/PLT COUNT & AUTO [id number] 01:34:00 Test Item Value Reference Range Interpretation Comments WHITE BLOOD CELL COUNT (BEAKER) 5.2 K/ L 3.5-10.5 (test code = 775) RED BLOOD CELL COUNT (BEAKER) 3.89 M/ L 4.63-6.08 L (test code = 761) HEMOGLOBIN (BEAKER) (test code = 12.4 GM/DL 13.7-17.5 L 410) HEMATOCRIT (BEAKER) (test code = 37.4 % 40.1-51.0 L 411) MEAN CORPUSCULAR VOLUME (BEAKER) 96.1 fL 79.0-92.2 H (test code = 753) MEAN CORPUSCULAR HEMOGLOBIN 31.9 pg 25.7-32.2 (BEAKER) (test code = 751) MEAN CORPUSCULAR HEMOGLOBIN CONC 33.2 GM/DL 32.3-36.5 (BEAKER) (test code = 752) RED CELL DISTRIBUTION WIDTH 14.4 % 11.6-14.4 (BEAKER) (test code = 412) PLATELET COUNT (BEAKER) (test 129 K/CU MM 150-450 L code = 756) MEAN PLATELET VOLUME (BEAKER) 9.2 fL 9.4-12.4 L (test code = 754) NUCLEATED RED BLOOD CELLS 0 /100 WBC 0-0 (BEAKER) (test code = 413) NEUTROPHILS RELATIVE PERCENT 60 % (BEAKER) (test code = 429) LYMPHOCYTES RELATIVE PERCENT 20 % (BEAKER) (test code = 430) MONOCYTES RELATIVE PERCENT 18 % (BEAKER) (test code = 431) EOSINOPHILS RELATIVE PERCENT 2 % (BEAKER) (test code = 432) BASOPHILS RELATIVE PERCENT 1 % (BEAKER) (test code = 437) NEUTROPHILS ABSOLUTE COUNT 3.07 K/ L 1.78-5.38 (BEAKER) (test code = [...] (BEAKER) (test code = 2801) BASIC METABOLIC [id number] 01:29:00 Test Item Value Reference Range Interpretation Comments SODIUM (BEAKER) 130 meq/L 136-145 L (test code = 381) POTASSIUM (BEAKER) 4.7 meq/L 3.5-5.1 (test code = 379) CHLORIDE (BEAKER) 89 meq/L 98-107 L (test code = 382) CO2 (BEAKER) (test 23 meq/L 22-29 code = 355) BLOOD UREA NITROGEN 59 mg/dL 7-21 H (BEAKER) (test code = 354) CREATININE (BEAKER) 8.39 mg/dL 0.57-1.25 H (test code = 358) GLUCOSE RANDOM 113 mg/dL 70-105 H (BEAKER) (test code = 652) CALCIUM (BEAKER) 8.0 mg/dL 8.4-10.2 L (test code = 697) EGFR (BEAKER) (test 8 mL/min/1.73 ESTIMAT ED GFR IS code = 1092) sq m NOT ACCURATE CREATININE CLEARANCE IN PREDICTING GLOMERULAR FILTRATION RATE . ESTIMATED GFR I S NOT APPLICABLE FOR DIALYSIS PATIEN TS. Film Or Tape Librarian ID - PIAYA [id number] 01:13:00 Test Item Value Reference Range Interpretation Comments PARTIAL THROMBOPLASTIN TIME 56.4 seconds 22.5-36.0 H (BEAKER) (test code = 760) POCT-GLUCOSE [id number] 23:59:00 Test Item Value Reference Range Interpretation Comments POC-GLUCOSE METER 134 mg/dL 70-110 H : TESTED A T [facility] [address] (BEAKER) (test code = [address] [place], [place]38) [address]: Film Or Tape Librarian/Techni kush ID = [id number] for SCOOTER MIRZA [id number] 18:52:00 Test Item Value Reference Range Interpretation Comments PARTIAL THROMBOPLASTIN TIME 47.3 seconds 22.5-36.0 H (BEAKER) (test code = 760) [id number] 18:18:00 Test Item Value Reference Range Interpretation Comments PARTIAL THROMBOPLASTIN TIME > seconds 22.5-36.0 HH (BEAKER) (test code = 760) POCT-GLUCOSE [id number] 18:15:00 Test Item Value Reference Range Interpretation Comments POC-GLUCOSE METER 143 mg/dL 70-110 H : TESTED A T [facility] 6720 (BEAKER) (test code = [facility], 1538) [address]: Film Or Tape Librarian/Techni kush ID = [id number] for DO BBINS, RANDI POCT-GLUCOSE [id number] 12:15:00 Test Item Value Reference Range Interpretation Comments POC-GLUCOSE METER 123 mg/dL 70-110 H : TESTED A T [facility] [address] (BEAKER) (test code = [facility], 1538) 313[address]: Film Or Tape Librarian/Techni kush ID = [id number] for DO BBINS, RANDI [id number] 11:28:00 Test Item Value Reference Range Interpretation Comments PARTIAL THROMBOPLASTIN TIME 57.3 seconds 22.5-36.0 H (BEAKER) (test code = 760) POCT-GLUCOSE [id number] 06:49:00 Test Item Value Reference Range Interpretation Comments POC-GLUCOSE METER 86 mg/dL 70-110 : TESTED A T [facility] 6720 (BEAKER) (test code = [facility], 1538) 53[address]: Film Or Tape Librarian/Techni kush ID = [id number] for SCOOTER MAYA BASIC METABOLIC [id number] 06:19:00 Test Item Value Reference Range Interpretation Comments SODIUM (BEAKER) 137 meq/L 136-145 (test code = 381) POTASSIUM (BEAKER) 5.0 meq/L 3.5-5.1 (test code = 379) CHLORIDE (BEAKER) 96 meq/L 98-107 L (test code = 382) CO2 (BEAKER) (test 25 meq/L 22-29 code = 355) BLOOD UREA NITROGEN 38 mg/dL 7-21 H (BEAKER) (test code = 354) CREATININE (BEAKER) 6.99 mg/dL 0.57-1.25 H (test code = 358) GLUCOSE RANDOM 73 mg/dL 70-105 (BEAKER) (test code = 652) CALCIUM (BEAKER) 9.0 mg/dL 8.4-10.2 (test code = 697) EGFR (BEAKER) (test 10 mL/min/1.73 ESTIMA JAYLA GFR IS code = 1092) sq m NOT ACCURATE CREATININE CLEARANCE IN PREDICTING GLOMERULAR FILTRATION RATE . ESTIMATED GFR I S NOT APPLICABLE FOR DIALYSIS PATIEN TS. Film Or Tape Librarian ID - PIAYA LCBC W/PLT COUNT & AUTO [id number] 04:57:00 Test Item Value Reference Range Interpretation Comments WHITE BLOOD CELL COUNT (BEAKER) 6.2 K/ L 3.5-10.5 (test code = 775) RED BLOOD CELL COUNT (BEAKER) 4.30 M/ L 4.63-6.08 L (test code = 761) HEMOGLOBIN (BEAKER) (test code = 13.5 GM/DL 13.7-17.5 L 410) HEMATOCRIT (BEAKER) (test code = 42.2 % 40.1-51.0 411) MEAN CORPUSCULAR VOLUME (BEAKER) 98.1 fL [...] (test code = 437) NEUTROPHILS ABSOLUTE COUNT 4.32 K/ L 1.78-5.38 (BEAKER) (test code = [...] PERCENT (BEAKER) (test code = 2801) POCT-GLUCOSE [id number] 02:25:00 Test Item Value Reference Range Interpretation Comments POC-GLUCOSE METER 69 mg/dL 70-110 L : TESTED A T [facility] 6720 (BEAKER) (test code = [place], 1538) [address]: Film Or Tape Librarian/Techni kush ID = [id number] for RADHA PEREZ FL, FLUORO, NON-SPECIFIC, UP TO 1 [id number] 01:47:00Reason for exam:- >orif right femurFluoroscopic unit utilized for a procedure performed in the OR. No interpretation was requested. Refer to the operative report for findings. Refer to PACS for patient radiation dose information.FL fluoro non- specific up to 1 [id number] 01:47:00Interface, External Ris In - 02/28/2020 1:50 AM CDTFluoroscopic unit utilized for a procedure performed in the OR. No interpretation was requested. Refer to the operative report for findings. [place] PACS for patient radiation dose information.[facility]00 Test Item Value Reference Range Interpretation Comments PARTIAL THROMBOPLASTIN TIME 41.1 seconds 22.5-36.0 H (BEAKER) (test code = 760) 6 hours after starting heparin infusion and as indicated per sliding scale HEMODIALYSIS [id number] 18:35:06Alma Delia Rachel RN 02/27/2020 6:35 PMLab Results Component Value Date GLUCOSE 99 02/27/2020 [...] 02/27/2020 10:18 HBsAg Screen Latest Ref Range: Nonreactive Nonreactive HD X 3.5 hours completed. Net UF -2L VSS. Patient tolerated procedure well. Alma Delia Rachel RNColor[facility] CenterPOCT-GLUCOSE [id number] 17:57:00 Test Item Value Reference Range Interpretation Comments POC-GLUCOSE METER 82 mg/dL 70-110 : TESTED A T [facility] [address] (BEAKER) (test code = [place], 1538) [address]: Film Or Tape Librarian/Techni kush ID = [id number] for ALMA DELIA PATHAK [id number] 17:14:00 Test Item Value Reference Range Interpretation Comments Ferritin (test code = 5182.19 ng/mL 5-275 H 2276-4) ALVIN (test code = ALVIN) Film Or Tape Librarian ID [facility] Interpretation (test Abnormal code = 41026-0) [facility] Center[facility]ERR[facility]IN2020-[facility] 17:14:00 Test Item Value Reference Range Interpretation Comments FERRITIN (BEAKER) (test code = 5182.19 ng/mL 5.00-275.00 H 361) Film Or Tape Librarian ID - JOEL Kim, TIBC, % sat. (without ferritin)2020-02-27 16:01:00 Test Item Value Reference Range Interpretation Comments Iron (test code = 2498-4) 125.0 ug/dL 40-160 TIBC (test code = 2500-7) 219 ug/dL 250-450 L Iron % Saturation (test 57 % 20-55 H code = 2502-3) ALVIN (test code = ALVIN) Film Or Tape Librarian ID Patel [place] Lab Interpretation (test Abnormal code = 71404-5) [facility], TIBC, % SAT. (WITHOUT FERRITIN)2020-02-27 16:01:00 Test Item Value Reference Range Interpretation Comments IRON (BEAKER) (test code = 547) 125.0 ug/dL 40.0-160.0 TOTAL IRON BINDING CAPACITY 219 ug/dL 250-450 L (BEAKER) (test code = 769) IRON % SATURATION (2) (BEAKER) 57 % 20-55 H (test code = 2590) Film Or Tape Librarian ID Patel MALDONADO [id number] 12:54:00 Test Item Value Reference Range Interpretation Comments PARTIAL THROMBOPLASTIN TIME 41.5 seconds 22.5-36.0 H (BEAKER) (test code = 760) Prior to initiating heparinPlatelet [id number] 12:51:00 Test Item Value Reference Range Interpretation Comments Platelets (test code = 116 150- 450 K/CU MM L 777-3) ALVIN (test code = ALVIN) Film Or Tape Librarian ID - [id number] clot Lab Interpretation (test Abnormal code = 24931-5) [facility] CenterPLATELET [id number] 12:51:00 Test Item Value Reference Range Interpretation Comments PLATELET COUNT (BEAKER) (test 116 K/CU MM 150-450 L code = 756) Film Or Tape Librarian ID - [id number] clotSARS-CoV2/RT-PCR (Asymptomatic ONLY)2020-02-27 12:46:00 Test Item Value Reference Range Interpretation Comments SARS-COV2/RT-PCR Negative Not Detected, (test code = Negative 55273-8) SARS-COV-2 [facility] PERFORMING LAB (test code = 80627-2) ALVIN (test code = Negative result for this ALVIN) test determines that SARS-CoV-2 RNA was not present in the specimen above the Limit of Detection (LOD). However, Negative results do not preclude SARS-CoV-2 infection and should not be used as the sole basis for treatment or patient management decisions. Negative results must be combined with clinical observations, patient history, and epidemiological information. A false negative result may occur if a specimen is improperly collected, transported or handled. A false negative result should be considered if patient's recent exposures or clinical presentation indicate that COVID-19 (SARS-CoV-2) is likely and diagnostic tests for other causes of illness are negative. Re-testing should be considered in cases of suspected [...] Food and Drug Administration (FDA) cleared or approved. This is a modified version of an approved [...] of the Act. Fact Sheet for Healthcare Providers:https://www.BackType/sites/default/f mio/product/documents/F act_Sheet_HC_Providers_L feu_AOAO-LbV-7.pdf Fact Sheet for Healthcare Patients:https://www.InteraXon/sites/default/fi les/product/documents/Fa ct_Sheet_Patients_Lyra_S ARS-CoV-2.pdf Performing Laboratory:[place] [address] [address]OV2/RT-PCR ([facility])2020-02-27 12:46:00 Test Item Value Reference Range Interpretation Comments SARS-COV2/RT-PCR (test code = Negative Not Detected, Negative 5011210) SARS-COV-2 PERFORMING LAB [facility] (test code = 6076374) Negative result for this test determines that SARS-CoV-2 RNA was not present in the specimen above the Limit of Detection (LOD). However, Negative results do not preclude SARS-CoV-2 infection and should not be used as the sole basis for treatment or patient management decisions. Negative results mustbe combined with clinical observations, patient history, and epidemiological information. A false negative result may occur if a specimen is improperly collected, transported or handled. A false negative result should be considered if patient's recent exposures or clinical presentation indicate that COVID-19 (SARS-CoV-2) is likely and diagnostic tests for other causes of illness are negative. Re-testing should be considered in cases of suspected false negatives.The limit of detection for this assay is 800 copies/mL.This SARS CoV-2 test is a real-time RT-PCR test intended for the qualitative detection of nucleic acid from SARS-CoV-2 in a nasopharyngeal swab specimen collected from individuals susp ected of COVID-19 by their healthcare provider.This test has not been Food and Drug Administration (FDA) cleared or approved. This is a modified version of an approved [...] is revoked under Section 564(g) of the Act.Fact Sheet for Healthcare Providers:https://www.Snackr/sites/default/files/product/documents/Fact_Shee c_MH_Nwxksczcj_Uqyy_ANRJ-DjM-4.pdfFact Sheet for Healthcare Patients:https://www.Snackr/sites/default/files/product/ documents/Uyen_Wrphj_Ajbrlnwd_Tead_CRIP-TuP-0.pdfPerforming Laboratory:[facility], [place] [address]OEYS-MOCMXES METER 2020-02-27 12:12:00 Test Item Value Reference Range Interpretation Comments POC-GLUCOSE METER 90 mg/dL 70-110 : TESTED A T [facility] 6720 (JARROD) (test code = MARIA GOSMAN Paul [facility], 1538) [address]: Film Or Tape Librarian/Techni kush ID = [id number] for ABENA BIRCH Hepatitis B surface [id number] 11:32:00 Test Item Value Reference Range Interpretation Comments HBsAg Screen (test code Nonreactive Nonreactive = 5195-3) ALVIN (test code = ALVIN) Specimen is considered negative for HBsAg. Lab Interpretation (test Normal code = 62386-4) [facility] CenterHEPATITIS B SURFACE [id number] 11:32:00 Test Item Value Reference Range Interpretation Comments HEPATITIS B SURFACE ANTIGEN (2) Nonreactive Nonreactive (JARROD) (test code = 2585) Specimen is considered negative for HBsAg.RAD, WRIST, 2 VIEWS, [id number] 09:19:00Reason for exam:->fall, immbolityFINAL REPORT TECHNIQUE: Frontal, oblique, and lateral views of the left wrist. INDICATION: Fall immobility. COMPARISON: None. FINDINGS:No acute fractures or dislocations.Joint spaces are within normal limits.There are atherosclerotic calcifications of the vessels. Surgical clipsproject over the distal radius.. IMPRESSION:No acute osseous abnormality. Signed: Bhavin Artis Verified Date/Time: 02/27/2020 09:19:08 Reading Location: [address] Body ReadingRoom XR wrist 2 views [id number] 09:19:00Interface, External Ris In - 02/27/2020 9:21 AM CDTFINAL REPORT TECHNIQUE: Frontal, oblique, and lateral views of the left wrist. INDICATION: Fall immobility. COMPARISON: None. FINDINGS:No acute fractures or dislocations.Joint spaces are within normal limits.There are atherosclerotic calcifications of the vessels. Surgical clips project over the distal radius.. IMPRESSION:No acute osseous abnormality. Signed: Bhavin Artis Verified Date/Time: 02/27/2020 09:19:08 Reading Location: [address] Body Reading [facility]Antib[facility] [id number] 08:56:00 Test Item Value Reference Range Interpretation Comments ANTIBODY ID (JARROD) UNID IgG (test code = 2253) Antibody Consult SIGNED OUT An IgG anti body of (test code = 2479) undetermi christian specificity is detected, trans fuse crossmatch comp atible RBCs.Electronic Signature: Rosendo Shirley M.D. [facility] CenterPotassium2020-06-27 08:30:00 Test Item Value Reference Range Interpretation Comments Potassium (test code = 5.0 meq/L 3.5-5.1 2823-3) ALVIN (test code = ALVIN) Film Or Tape Librarian ID - AKSHAT L Lab Interpretation (test Normal code = 32783-5) [facility] CenterPOTASSIUM2020-06-27 08:30:00 Test Item Value Reference Range Interpretation Comments POTASSIUM (BEAKER) (test code = 5.0 meq/L 3.5-5.1 379) Film Or Tape Librarian ID - AKSHAT LType and screen, [id number] 08:01:00 Test Item Value Reference Range Interpretation Comments ABO/RH AUTOMATED (BEAKER) (test AB POSITIVE code = 2260) Ab Scrn (test code = 890-4) POSITIVE ECHO 2 [facility] CenterRAD, PELVIS, 1 OR 2 [id number] 07:23:00Reason for exam:->femoral neck fxFINAL REPORT RAD, PELVIS, 1 OR 2 VIEWS, RAD, HIP, 2 VIEWS, LEFT INDICATION: femoral neck fx COMPARISON: None TECHNIQUE: AP view of the pelvis, AP and lateral view of the left hip FINDINGS/IMPRESSION:Fracture of the left femoral neck with medial rotation of the distal fragment and slight overriding. Remainder of the pelvic ring is intact. The ilioischial and ileoileal lines are intact. Signed: Radha Lisa Verified Date/Time: 02/27/2020 07:23:52 Reading Location: [address] Neuro Reading Room RAD, HIP, 2 VIEWS, [id number] 07:23:00Reason for exam:- >femoral neck fractureFINAL REPORT RAD, PELVIS, 1 OR 2 VIEWS, RAD, HIP, 2 VIEWS, LEFT INDICATION: femoral neck fx COMPARISON: None TECHNIQUE: AP view of the pelvis, AP and lateral view of the left hip FINDINGS/IMPRESSION:Fracture of the left femoral neck with medial rotation of the distal fragment and slight overriding. Remainder of the pelvic ring is intact. The ilioischial and ileoileal lines are intact. Signed: Radha Lisa Verified Date/Time: 02/27/2020 07:23:52 Reading Location: [address] Neuro Reading Room XR hip 2 views [id number] 07:23:00Interface, External Ris In - 02/27/2020 7:26 AM CDTFINAL REPORT RAD, PELVIS,1 OR 2 VIEWS, RAD, HIP, 2 VIEWS, LEFT INDICATION: femoral neck fx COMPARISON: None TECHNIQUE: AP view of the pelvis, AP and lateral view of the left hip FINDINGS/IMPRESSION:Fracture of the left femoralneck with medial rotation of the distal fragment and slight overriding. Remainder of the pelvic ringis intact. The ilioischial and ileoileal lines are intact. Signed: Radha Lisa VerifiedDate/Time: 02/27/2020 07:23:52 Reading Location: [address] Neuro Reading Room [facility] HospitalXR pelvis 1 or 2 [id number] 07:23:00Interface, External Ris In - 02/27/2020 7:26 AM CDTFINAL REPORT RAD, PELVIS,1 OR 2 VIEWS, RAD, HIP, 2 VIEWS, LEFT INDICATION: femoral neck fx COMPARISON: None TECHNIQUE: AP view of the pelvis, AP and lateral view of the left hip FINDINGS/IMPRESSION:Fracture of the left femoral neck with medial rotation of the distal fragment and slight overriding. Remainder of the pelvic ringis intact. The ilioischial and ileoileal lines are intact. Signed: Radha Lisa VerifiedDate/Time: 02/27/2020 07:23:52 Reading Location: [address] Neuro Reading Room [facility] POCT-GLUCOSE [id number] 06:26:00 Test Item Value Reference Range Interpretation Comments POC-GLUCOSE METER 72 mg/dL 70-110 : TESTED A T [facility] 67[address] ([employer]) (test code = [place], 1538) [address]: Film Or Tape Librarian/Techni kush ID = [id number] for SCOOTER MAYA Comprehensive metabolic [id number] 02:44:00 Test Item Value Reference Range Interpretation Comments Protein, Total (test 9.6 6.0- 8.3 gm/dL H code = 2885-2) Albumin (test code = 4.3 g/dL 3.5-5 37654-1) Alkaline Phosphatase 85 U/L 40-150 (test code = 6768-6) Total Bilirubin (test 1.1 mg/dL 0.2-1.2 code = 1974-2) Sodium (test code = 132 meq/L 136-145 L 2951-2) Potassium (test code = 5.9 meq/L 3.5-5.1 H 2823-3) Chloride (test code = 91 meq/L 98-107 L 2075-0) CO2 (test code = 24 meq/L 22-29 2028-9) BUN (test code = 58 mg/dL 7-21 H 3094-0) Creatinine (test code 8.80 mg/dL 0.57-1.25 H = 2160-0) Glucose (test code = 99 mg/dL 70-105 2345-7) Calcium (test code = 9.2 mg/dL 8.4-10.2 15521-1) AST (test code = 44 U/L 5-34 H 1920-8) ALT (test code = 36 U/L 6-55 1742-6) EGFR (test code = 7 mL/min/1.73 [place] [address]-2) NOT ACCURATE CREATININE CLEARANCE IN PREDICTING GLOMERULAR FILTRATION RATE . ESTIMATED GFR I S NOT APPLICABLE FOR DIALYSIS PATIENTS. ALVIN (test code = ALVIN) Film Or Tape Librarian ID - PIAYA L Lab Interpretation Abnormal (test code = 01495-9) [facility] CenterCOMPREHENSIVE METABOLIC [id number] 02:44:00 Test Item Value Reference Range Interpretation Comments TOTAL PROTEIN 9.6 gm/dL 6.0-8.3 H (BEAKER) (test code = 770) ALBUMIN (BEAKER) 4.3 g/dL 3.5-5.0 (test code = 1145) ALKALINE PHOSPHATASE 85 U/L 40-150 (BEAKER) (test code = 346) BILIRUBIN TOTAL 1.1 mg/dL 0.2-1.2 (BEAKER) (test code = 377) SODIUM (BEAKER) (test 132 meq/L 136-145 L code = 381) POTASSIUM (BEAKER) 5.9 meq/L 3.5-5.1 H (test code = 379) CHLORIDE (BEAKER) 91 meq/L 98-107 L (test code = 382) CO2 (BEAKER) (test 24 meq/L 22-29 code = 355) BLOOD UREA NITROGEN 58 mg/dL 7-21 H (BEAKER) (test code = 354) CREATININE (BEAKER) 8.80 mg/dL 0.57-1.25 H (test code = 358) GLUCOSE RANDOM 99 mg/dL 70-105 (BEAKER) (test code = 652) CALCIUM (BEAKER) 9.2 mg/dL 8.4-10.2 (test code = 697) AST (SGOT) (BEAKER) 44 U/L 5-34 H (test code = 353) ALT (SGPT) (BEAKER) 36 U/L 6-55 (test code = 347) EGFR (BEAKER) (test 7 mL/min/1.73 ESTIMAT ED GFR IS code = 1092) sq m NOT ACCURATE CREATININE CLEARANCE IN PREDICTING GLOMERULAR FILTRATION RATE . ESTIMATED GFR I S NOT APPLICABLE FOR DIALYSIS PATIEN TS. Film Or Tape Librarian ID - PIAYA LPROTHROMBIN TIME/[id number] 02:03:00 Test Item Value Reference Range Interpretation Comments PROTIME (BEAKER) (test code = 21.5 seconds 11.9-14.2 H 759) INR (BEAKER) (test code = 370) 1.9 <=5.9 Effective 01/28/2019: PT Reference Range ChangeNew: 11.9-14.2 Previous: 11.7- 14.7RECOMMENDED COUMADIN/WARFARIN INR THERAPY RANGESSTANDARD DOSE: 2.0-3.0 Includes: PROPHYLAXIS for venous thrombosis, systemic embolization; TREATMENT for venous thrombosis and/or pulmonary embolus.HIGH RISK: Target INR is2.5-3.5 for patients wiht mechanical heart valves.[id number] 01:56:00 Test Item Value Reference Range Interpretation Comments Magnesium (test code = 1.9 mg/dL 1.6-2.6 49769-6) ALVIN (test code = ALVIN) Film Or Tape Librarian ID Patel ODEN L Lab Interpretation (test Normal code = 16581-2) [facility] CenterPhosphorus2020-06-27 01:56:00 Test Item Value Reference Range Interpretation Comments Phosphorus (test code = 7.3 mg/dL 2.3-4.7 H 2777-1) ALVIN (test code = ALVIN) Film Or Tape Librarian JOSE ODEN L Lab Interpretation (test Abnormal code = 35422-2) [facility] CenterPHOSPHORUS2020-06-27 01:56:00 Test Item Value Reference Range Interpretation Comments PHOSPHORUS (BEAKER) (test code = 7.3 mg/dL 2.3-4.7 H 604) Film Or Tape Librarian ID Patel ODEN [id number] 01:56:00 Test Item Value Reference Range Interpretation Comments MAGNESIUM (BEAKER) (test code = 1.9 mg/dL 1.6-2.6 627) Film Or Tape Librarian JOSE ODEN LCBC W/PLT COUNT & AUTO [id number] 01:33:00 Test Item Value Reference Range Interpretation Comments WHITE BLOOD CELL COUNT (BEAKER) 6.5 K/ L 3.5-10.5 (test code = 775) RED BLOOD CELL COUNT (BEAKER) 4.33 M/ L 4.63-6.08 L (test code = 761) HEMOGLOBIN (BEAKER) (test code = 13.8 GM/DL 13.7-17.5 410) HEMATOCRIT (BEAKER) (test code = 42.5 % 40.1-51.0 411) MEAN CORPUSCULAR VOLUME (BEAKER) 98.2 fL 79.0-92.2 H (test code = 753) [...] 0-1 PERCENT (BEAKER) (test code = 2801) Blood culture, aerobic & [id number] 01:33:06 Test Item Value Reference Range Interpretation Comments Blood culture No growth Specimen isolate (test after 5 days InformationSpe [facility] = 600-7) of Source: BloodS pecimen incubation. Site: [facility] [id number] 21:54:59 Test Item Value Reference Range Interpretation Comments Ventricular rate (test 96 code = 253) Atrial rate (test code 96 = 255) NE interval (test code 182 = 266) QRSD [...] of 16-FEB-2015 10:01,-No significant change was found- [facility] with platelet and [id number] 06:24:24 Test Item Value Reference Range Interpretation Comments WBC (test code = 68435-6) 6.31 4.50- 11.00 k/uL RBC (test code = 74909-3) 3.41 m/uL 4.4-6 L HGB (test code = 718-7) 11.3 g/dL 14-18 L HCT (test code = 4544-3) 33.9 % 41-51 L MCV (test code = 787-2) 99.4 fL 82-100 MCH (test code = 785-6) 33.1 pg 27-34 MCHC (test code = 786-4) 33.3 g/dL 31-37 RDW - SD (test code = 47524-5) 45.9 fL 37-55 MPV (test code = 37506-6) 8.0 fL 8.8-13.2 L Platelet count (test code = 133 150- 400 k/uL L 65430-6) Neutrophils (test code = 59211-6) 69.0 % 39-69 Lymphocytes (test code = 99496-8) 17.0 % 25-45 L Monocytes (test code = 05092-0) 14.0 % 0-10 H Eosinophils (test code = 62880-4) 0.0 % 0-5 Basophils (test code = 77980-7) 0.0 % 0-1 Lab Interpretation (test code = Abnormal 24993-5) [facility] MethodistManual [id number] 04:04:40 Test Item Value Reference Range Interpretation Comments Manual differential (test code = PERFORMED 18164-3) Neutrophils (test code = 69.0 % 39-69 38142-4) Lymphocytes (test code = 17.0 % 25-45 L 33644-7) Monocytes (test code = 05606-5) 14.0 % 0-10 H Eosinophils (test code = 0.0 % 0-5 87832-7) Basophils (test code = 79004-4) 0.0 % 0-1 Metamyelocytes (test code = 0 % 740-1) Promyelocytes (test code = 0 % 783-1) Platelet slide review (test code Cayla slt decr = 23825-7) Anisocytosis (test code = 702-1) Moderate Polychromasia (test code = Moderate 52403-3) Spherocytes (test code = 802-9) Occasional Ovalocytes (test code = 774-0) Moderate Lab Interpretation (test code = Abnormal 14451-4) López MethodistComprehensive metabolic [id number] 21:52:24 Test Item Value Reference Range Interpretation Comments Sodium (test code = 2951-2) 135 128- 145 mEq/L Potassium (test code = 2823-3) 4.9 3.6- 5.1 mEq/L CO2 (test code = 2027-9) 30 18- 33 mEq/L Chloride (test code = 2075-0) 91 98- 108 mEq/L L Glucose (test code = 2345-7) 94 mg/dL 73-118 Calcium (test code = 02926-6) 9.1 mg/dL 8-10.3 BUN (test code = 3094-0) 29 mg/dL 7-22 H Creatinine (test code = 2160-0) 5.5 mg/dL 0.7-1.2 H Alkaline phosphatase (test code = 76 U/L 53-128 68-6) ALT (test code = 1742-6) 38 U/L 10-47 AST (test code = 1920-8) 45 U/L 11-38 H Total bilirubin (test code = 0.7 mg/dL 0.2-1.6 1974-10) Albumin (test code = 1751-7) 3.7 g/dL 3.3-5.5 Protein (test code = 2885-2) 8.2 g/dL 6.4-8.1 H Anion gap (test code = 80719-5) 14@ANIO 7- 15 mEq/L A/G ratio (test code = 1759-0) 0.8 0.7-3.8 Lab Interpretation (test code = Abnormal 43165-0) López MethodistBilirubin [id number] 21:52:24 Test Item Value Reference Range Interpretation Comments Bilirubin direct (test code = 0.3 mg/dL 0-0.3 1968-03) López MethodistEstimated [id number] 21:52:24 Test Item Value Reference Range Interpretation Comments Estimated GFR (test 12 mL/min/1.73 m2 A Caterg ory Units code = 5488) InterpretationG 1 >=90 Jazmine l or highG2 60-89 Mildly decrease dG3a 45-59 Mil dly to moderately decr plveoL8w 30-44 Moderately to s everely decreasedG4 15-29 Severe ly decreasedG5 <15 Kidney blanco lureThe eGFR was calcul ated using the [facility] Kidney Disease Epidemiology Collaboration ( CKD-EPI) equation. Interpretation is based on recommendati ons of the [facility]-Kidn ey Disease Outcome s Quality Initiat samreen (NKF-KDOQI) pub lished in 2013. Lab Interpretation Abnormal (test code = 60112-8) [facility]geant MethodistCT Abdomen Pelvis Wo [id number] 20:53:43Hm Interface, Radiology Results 09/12/2019 8:56 PM CSTEXAMINATION: CT ABDOMEN PELVIS [...] kidneys.6.No intestinal obstruction or evidence of inflammation.Rene WilsonTroponin, [id number] 20:46:29 Test Item Value Reference Range Interpretation [...] quired to rule out acute myocardial injury. [facility] MethodistXR Chest 2 [id number] 20:46:25Hm Interface, Radiology Results 09/12/2019 8:49 PM CSTEXAMINATION: XR CHEST 2 VWCLINICAL HISTORY: sobCOMPARISON: NoneIMPRESSION:Status post median sternotomy and valvular surgery. Atrial clip present. There is mild cardiomegaly. There is mild central vascular congestion. There is small right pleural effusion with volume loss in the right base. Lungs are otherwise clear. There is no pneumothorax. Visualized osseous structures are intact. [facility]-[id number] MethodistVenous blood gas 2019-09-12 20:39:32 Test Item Value Reference Range Interpretation Comments pH, venous, POC (test code = 7.52 7.32-7.42 H 6-6) pCO2, venous, POC (test code = 41 45- 51 mm Hg L 2020-4) pO2, venous, POC (test code = 32 25- 40 mm Hg 5-2) Base excess, venous, POC (test 9 mmol/L -2-2 H code = 1927-3) Bicarbonate, venous, POC (test 32.9 mmol/L 21-28 H code = 96218-9) O2 saturation, venous, POC (test 68 % 40-70 code = 2711-0) Lab Interpretation (test code = Abnormal 02986-0) López MethodistLactic acid, D-[id number] 20:37:11 Test Item Value Reference Range Interpretation Comments Lactic acid, I-Stat (test code = 2.0 mmol/L 0.5-2.2 11088-4) Sargeant MethodistInfluenza [id number] 20:05:58 Test Item Value Reference Range Interpretation Comments Influenza Flue B: Specimen antigen (test positive InformationSpe cimen code = 1604) Flue A: Source: NaresSp ecimen negative Site: Left [facility] ED Preliminary Interpretation - Not an [id number] 19:29:23Ty Nieves MD 09/13/2019 6:41 AMECG ED Preliminary Interpretation - Not an OrderPerformed by: Ty Nieves MDAuthorized by: Ty Nieves MD ECG reviewed by ED Physician in the absence of a product marketing programs manager: yes Interpretation: Interpretation: non-specific Rate: ECG r ate: 96 ECG rate assessment: normal Rhythm: Rhythm: sinus rhythm Ectopy: Ectopy: none QRS: QRS axis: NormalConduction: Conduction: normal ST segments: ST segments: NormalT waves: T waves: peaked Peaked: V3, V4, V5, V6, II, III and aVFHouston MethodistAFB CULTURE + [id number] 07:33:00 Test Item Value Reference Range Interpretation Comments CULTURE (BEAKER) (test No acid-fast bacilli code = 1095) isolated in 42 days [facility] No acid fast bacilli (test code = 994) seen FUNGUS CULTURE + [id number] 17:26:00 Test Item Value Reference Range Interpretation Comments CULTURE (BEAKER) (test No fungus isolated in code = 1095) 28 days FUNGUS SMEAR ([facility]) No fungi seen (test code = 1406) POCT-GLUCOSE [id number] 13:35:00 Test Item Value Reference Range Interpretation Comments POC-GLUCOSE METER 116 mg/dL 70-110 H TESTED AT [facility] 72[address] ([facility]) (test code = [address] [place] 1538) [address] POCT-GLUCOSE [id number] 08:54:00 Test Item Value Reference Range Interpretation Comments POC-GLUCOSE METER 99 mg/dL 70-110 TESTED AT [facility] 67[address] (BEAKER) (test code = [place] [address] 1878) [id number] 06:34:00 Test Item Value Reference Range Interpretation Comments PARTIAL THROMBOPLASTIN TIME 46.7 seconds 22.5-36.0 H (BEAKER) (test code = 760) While on warfarin.PROTHROMBIN TIME/[id number] 06:33:00 Test Item Value Reference Range Interpretation Comments PROTIME (BEAKER) (test code = 26.5 seconds 11.7-14.7 H 759) INR (BEAKER) (test code = 370) 2.6 [...] CELL DISTRIBUTION WIDTH 17.9 % 11.6-14.4 H (BEAKER) (test code = 412) PLATELET COUNT (BEAKER) (test 148 K/CU MM 150-450 L code = 756) MEAN PLATELET VOLUME (BEAKER) 9.2 fL 9.4-12.4 L (test code = 754) NUCLEATED RED BLOOD CELLS 1 /100 WBC 0-0 H (BEAKER) (test code = 413) POCT-GLUCOSE [id number] 21:38:00 Test Item Value Reference Range Interpretation Comments POC-GLUCOSE METER 192 mg/dL 70-110 H TESTED AT [place] [address] ([facility]) (test code = [address] [facility] 1538) [address] POCT-GLUCOSE [id number] 13:01:00 Test Item Value Reference Range Interpretation Comments POC-GLUCOSE METER 200 mg/dL 70-110 H TESTED AT [place] [address] ([facility]) (test code = [address] [facility] 1538) [address] POCT-GLUCOSE [id number] 08:00:00 Test Item Value Reference Range Interpretation Comments POC-GLUCOSE METER 123 mg/dL 70-110 H TESTED AT [place] [address] ([facility]) (test code = [address] [facility] 1538) [address] [id number] 06:40:00 Test Item Value Reference Range Interpretation Comments PARTIAL THROMBOPLASTIN TIME 83.1 seconds 22.5-36.0 H ([facility]) (test code = 760) [id number] 05:54:00 Test Item Value Reference Range Interpretation Comments PARTIAL THROMBOPLASTIN TIME > seconds 22.5-36.0 HH (BEAKER) (test code = 760) PROTHROMBIN TIME/[id number] 05:30:00 Test Item Value Reference Range Interpretation Comments PROTIME (BEAKER) (test code = 24.1 seconds 11.7-14.7 H 759) INR (BEAKER) (test [...] (BEAKER) (test code = 413) BASIC METABOLIC [id number] 05:10:00 Test Item Value Reference Range Interpretation [...] APPLICABLE FOR DIALYSIS PATIEN TS. OCCULT BLOOD, [id number] 23:46:00 Test Item Value Reference Range Interpretation Comments FECAL OCCULT BLOOD (BEAKER) (test Negative Negative code = 618) POCT-GLUCOSE [id number] 22:52:00 Test Item Value Reference Range Interpretation Comments POC-GLUCOSE METER 192 mg/dL 70-110 H TESTED AT [place] [address] ([facility]) (test code = [facility] 1538) [address] POCT-GLUCOSE [id number] 17:11:00 Test Item Value Reference Range Interpretation Comments POC-GLUCOSE METER 149 mg/dL 70-110 H TESTED AT [place] [address] ([facility]) (test code = [facility] 1538) [address] PROTHROMBIN [id number] 13:00:00 Test Item Value Reference Range Interpretation [...] METER 134 mg/dL 70-110 H TESTED AT [facility] 6720 ([facility]) (test code = [facility] 1538) [address] RAD, CHEST, 1 VIEW, NON [id number] 08:02:00Reason for exam:->Post opShould this be performed [...] MDReport Verified Date/Time: 01/04/2019 08:02:18 Reading Location: [facility] [address] Consult Reading Room Electronicallysigned by: EDENILSON BLOOM M.D. on 01/04/2019 08:02 AMPOCT-GLUCOSE [id number] 07:42:00 Test Item Value Reference Range Interpretation Comments POC-GLUCOSE METER 98 mg/dL 70-110 TESTED AT [facility] 6720 ([facility]) (test code = [facility] [address] 1538) BASIC METABOLIC [id number] 07:28:00 Test Item Value Reference Range Interpretation [...] 0-0 H (BEAKER) (test code = 413) [id number] 06:08:00 Test Item Value Reference Range Interpretation Comments PARTIAL THROMBOPLASTIN TIME 70.6 seconds 22.5-36.0 H (BEAKER) (test code = 760) [id number] 23:32:00 Test Item Value Reference Range Interpretation Comments PARTIAL THROMBOPLASTIN TIME 77.2 seconds 22.5-36.0 H (BEAKER) (test code = 760) POCT-GLUCOSE [id number] 21:55:00 Test Item Value Reference Range Interpretation Comments POC-GLUCOSE METER 150 mg/dL 70-110 H TESTED AT [facility] 67[facility] ([facility]) (test code = [facility] 1538) [address] [id number] 18:25:00 Test Item Value Reference Range Interpretation Comments PARTIAL THROMBOPLASTIN TIME 71.2 seconds 22.5-36.0 H ([facility]) (test code = 760) POCT-GLUCOSE [id number] 13:45:00 Test Item Value Reference Range Interpretation Comments POC-GLUCOSE METER 375 mg/dL 70-110 H Notified R Toy PÉREZ/TESTED ([facility]) (test code = AT [facility] 6720 [facility] 1538) [facility] 7[address] 0 [id number] 10:26:00 Test Item Value Reference Range Interpretation Comments PARTIAL THROMBOPLASTIN TIME 94.0 seconds 22.5-36.0 H ([facility]) (test code = 760) While on warfarin.PROTHROMBIN [id number] 10:24:00 Test Item Value Reference Range Interpretation Comments PROTIME ([facility]) (test code = 19.3 seconds 11.7-14.7 H 759) INR ([facility]) (test code = 370) 1.7 <=5.9 RECOMMENDED COUMADIN/WARFARIN INR THERAPY RANGESSTANDARD DOSE: 2.0 - 3.0 Includes: PROPHYLAXIS forvenous thrombosis, systemic embolization; TREATMENT for venous thrombosis and/or pulmonary embolus.HIGH RISK: Target INR is 2.5-3.5 for patients with mechanical heart valves.While on warfarin.POCT-GLUCOSE METER 2019-01-03 08:36:00 Test Item Value Reference Range Interpretation Comments POC-GLUCOSE METER 124 mg/dL 70-110 H TESTED AT [facility] 6720 ([facility]) (test code = [facility] 1538) [address] RAD, CHEST, 1 VIEW, NON [id number] 08:19:00Reason for exam:->Post opShould this be performed [...] Lisa Verified Date/Time: 01/03/2019 08:19:51 Reading Location: [address] Neuro Reading Room [id number] 03:31:00 Test Item Value Reference Range Interpretation Comments PARTIAL THROMBOPLASTIN TIME 64.2 seconds 22.5-36.0 H (BEAKER) (test code = 760) BASIC METABOLIC [id number] 03:21:00 Test Item Value Reference Range Interpretation [...] = 8.2 GM/DL 13.7-17.5 L 410) HEMATOCRIT ([facility]) (test code = 26.9 % 40.1-51.0 L 411) MEAN CORPUSCULAR VOLUME (AKER) 103.1 fL 79.0-92.2 H (test code = 753) MEAN CORPUSCULAR HEMOGLOBIN 31.4 pg 25.7-32.2 (AKER) (test code = 751) MEAN CORPUSCULAR HEMOGLOBIN CONC 30.5 GM/DL 32.3-36.5 L (AKER) (test code = 752) RED CELL DISTRIBUTION WIDTH 16.1 % 11.6-14.4 H (AKER) (test code = 412) PLATELET COUNT ([facility]) (test 167 K/CU MM 150-450 code = 756) MEAN PLATELET VOLUME (AKER) 8.7 fL 9.4-12.4 L (test code = 754) NUCLEATED RED BLOOD CELLS 1 /100 WBC 0-0 H ([facility]) (test code = 413) POCT-GLUCOSE [id number] 22:54:00 Test Item Value Reference Range Interpretation Comments POC-GLUCOSE METER 206 mg/dL 70-110 H TESTED AT [place] [address] ([facility]) (test code = [facility] 1538) [address] [id number] 19:36:00 Test Item Value Reference Range Interpretation Comments PARTIAL THROMBOPLASTIN TIME 79.3 seconds 22.5-36.0 H ([facility]) (test code = 760) POCT-GLUCOSE [id number] 17:59:00 Test Item Value Reference Range Interpretation Comments POC-GLUCOSE METER 186 mg/dL 70-110 H TESTED AT [place] [address] ([facility]) (test code = [facility] 1538) [address] POCT-GLUCOSE [id number] 13:54:00 Test Item Value Reference Range Interpretation Comments POC-GLUCOSE METER 139 mg/dL 70-110 H TESTED AT [place] [address] ([facility]) (test code = [facility] 1538) [address] POCT-GLUCOSE [id number] 13:05:00 Test Item Value Reference Range Interpretation Comments POC-GLUCOSE METER 163 mg/dL 70-110 H TESTED AT [place] [address] ([facility]) (test code = [facility] 1538) [address] [id number] 12:49:00 Test Item Value Reference Range Interpretation Comments PARTIAL THROMBOPLASTIN TIME 64.9 seconds 22.5-36.0 H (BEAKER) (test code = 760) OCCULT BLOOD, [id number] 12:31:00 Test Item Value Reference Range Interpretation Comments FECAL OCCULT BLOOD (BEAKER) (test Negative Negative code = 618) RAD, CHEST, 1 VIEW, NON [id number] 10:37:00Reason for exam:->Post opShould this be performed [...] No significant change. Signed: Sarah Beth Mejia MDRepsaint [facility] Verified Date/Time: 01/02/2019 10:37:35 Reading Loc ation: ARTURO Michelle Clymer Radiology Reading Room POCT-GLUCOSE [id number] 08:07:00 Test Item Value Reference Range Interpretation Comments POC-GLUCOSE METER 107 mg/dL 70-110 TESTED AT [facility] 6720 ([facility]ZO[facility]) (test code = [facility] 1538) [address] [id number] 04:48:00 Test Item Value Reference Range Interpretation Comments PARTIAL THROMBOPLASTIN TIME 106.0 seconds 22.5-36.0 H (BEAKER) (test code = 760) While on warfarin.BASIC METABOLIC [id number] 04:48:00 Test Item Value Reference Range Interpretation [...] NOT APPLICABLE FOR DIALYSIS PATIEN TS. PROTHROMBIN TIME/[id number] 04:39:00 Test Item Value Reference Range Interpretation [...] CORPUSCULAR HEMOGLOBIN CONC 31.5 GM/DL 32.3-36.5 L ([facility]) (test code = 752) RED CELL DISTRIBUTION WIDTH 16.5 % 11.6-14.4 H (AKER) (test code = 412) PLATELET COUNT ([facility]) (test 161 K/CU MM 150-450 code = 756) MEAN PLATELET VOLUME (AKER) 8.9 fL 9.4-12.4 L (test code = 754) NUCLEATED RED BLOOD CELLS 0 /100 WBC 0-0 ([facility]) (test code = 413) POCT-GLUCOSE [id number] 22:17:00 Test Item Value Reference Range Interpretation Comments POC-GLUCOSE METER 117 mg/dL 70-110 H TESTED AT [place] [address] ([facility]) (test code = [facility] 1538) [address] RAD, CHEST, 1 VIEW, NON [id number] 19:40:00Reason for exam:->Post opShould this be performed [...] Bloom Verified Date/Time: 01/01/2019 19:40:01 Reading Location: [facility] C013W Consult Reading Room POCT-GLUCOSE [id number] 18:22:00 Test Item Value Reference Range Interpretation Comments POC-GLUCOSE METER 159 mg/dL 70-110 H TESTED AT [place] [address] ([facility]) (test code = [facility] 1538) [address] POCT-GLUCOSE [id number] 14:12:00 Test Item Value Reference Range Interpretation Comments POC-GLUCOSE METER 135 mg/dL 70-110 H TESTED AT [place] [address] ([facility]) (test code = [facility] 1538) [address] HEPATITIS B SURFACE [id number] 11:52:00 Test Item Value Reference Range Interpretation Comments HEPATITIS B SURFACE ANTIGEN (2) Nonreactive Nonreactive (BEAKER) (test code = 2585) POCT-GLUCOSE [id number] 08:40:00 Test Item Value Reference Range Interpretation Comments POC-GLUCOSE METER 85 mg/dL 70-110 TESTED AT [facility] 6720 ([facility]) (test code = [facility] [address] 1538) BASIC METABOLIC [id number] 04:17:00 Test Item Value Reference Range Interpretation [...] S NOT APPLICABLE FOR DIALYSIS PATIEN TS. [id number] 03:40:00 Test Item Value Reference Range Interpretation Comments PARTIAL THROMBOPLASTIN TIME 84.1 seconds 22.5-36.0 H (BEAKER) (test code = 760) While on warfarin.PROTHROMBIN TIME/[id number] 03:39:00 Test Item Value Reference Range Interpretation [...] code = 412) PLATELET COUNT (BEAKER) (test 186 K/CU MM 150-450 code = 756) MEAN PLATELET VOLUME (BEAKER) 9.0 fL 9.4-12.4 L (test code = 754) NUCLEATED RED BLOOD CELLS 0 /100 WBC 0-0 (BEAKER) (test code = 413) POCT-GLUCOSE [id number] 22:08:00 Test Item Value Reference Range Interpretation Comments POC-GLUCOSE METER 194 mg/dL 70-110 H TESTED AT [place] [id number] ([facility]) (test code = [facility] [place] 1538) [address] POCT-GLUCOSE [id number] 22:03:00 Test Item Value Reference Range Interpretation Comments POC-GLUCOSE METER 203 mg/dL 70-110 H TESTED AT [facility] 6720 ([facility]) (test code = [facility] [place] 1538) [address] POCT-GLUCOSE [id number] 21:42:00 Test Item Value Reference Range Interpretation Comments POC-GLUCOSE METER 42 mg/dL 70-110 L TESTED AT [facility] 6720 ([facility]) (test code = [place] [address] 1538) [id number] 21:35:00 Test Item Value Reference Range Interpretation Comments PARTIAL THROMBOPLASTIN TIME 80.4 seconds 22.5-36.0 H [facility] (test code = 760) POCT-GLUCOSE [id number] 18:03:00 Test Item Value Reference Range Interpretation Comments POC-GLUCOSE METER 144 mg/dL 70-110 H TESTED AT [facility] 6720 ([facility]) (test code = [facility] 1538) [address] TISSUE [id number] 16:33:00Surgical Pathology Report Case: [id number] Authorizing Provider: Enmanuel Sharma Collected: 12/26/2018 1537 MD Liban OrderingLocation: [address] Received: 12/29/2018 0814 Service Pathologist: Brigida [...] stains. GMSImmunohistochemistry technical testing was performed at [facility], Pathology Laboratory where it was developed [...] toperform high complexity clinical laboratory testing.CPT CODE: [id number] electronically signed byBrigida Parks MD on 12/31/2018 [...] ARE NEGATIVE Signing Pathologist Direct Phone Line: [phone] signed by Brigida Parks MD on 12/30/2018 at 6:43 PMPreliminary result electronically signed by Brigida Parks MD on 12/29/2018 at 4:54 [id number] X 2; 75078; 78365; 79089 X 2Upper endoscopy, biopsyPreoperative and postoperative diagnosis: [...] AND CMVImmunohistochemistry technical testing was performed at [facility], Pathology Laboratory where it was developed [...] qualified toperform high complexity clinical laboratory testing.POCT-GLUCOSE [id number] 13:57:00 Test Item Value Reference Range Interpretation Comments POC-GLUCOSE METER 178 mg/dL 70-110 H TESTED AT [facility] 6720 ([facility]) (test code = [place] 1538) [address] [id number] 12:54:00 Test Item Value Reference Range Interpretation Comments PARTIAL THROMBOPLASTIN TIME 69.4 seconds 22.5-36.0 H (BEAKER) (test code = 760) RAD, CHEST, 1 VIEW, NON [id number] 09:26:00Reason for exam:->Post opShould this be performed [...] MDReport Verified Date/Time: 12/31/2018 09:26:31 Reading Location: [facility] Radiology Reading Room POCT-GLUCOSE [id number] 09:01:00 Test Item Value Reference Range Interpretation Comments POC-GLUCOSE METER 162 mg/dL 70-110 H TESTED AT [facility] 6720 ([facility]) (test code = [place] [facility] 1538) [address] BASIC METABOLIC [id number] 06:50:00 Test Item Value Reference Range Interpretation [...] NOT APPLICABLE FOR DIALYSIS PATIEN TS. PROTHROMBIN [id number] 06:38:00 Test Item Value Reference Range Interpretation Comments PROTIME (BEAKER) (test code = 19.1 seconds 11.7-14.7 H 759) INR (BEAKER) (test code = 370) 1.7 <=5.9 RECOMMENDED COUMADIN/WARFARIN INR THERAPY RANGESSTANDARD DOSE: 2.0 - 3.0 Includes: PROPHYLAXIS forvenous thrombosis, systemic embolization; TREATMENT for venous thrombosis and/or pulmonary embolus.HIGH RISK: Target INR is 2.5-3.5 for patients with mechanical heart valves.While on warfarin.[id number] 06:37:00 Test Item Value Reference Range Interpretation [...] CELL DISTRIBUTION WIDTH 15.9 % 11.6-14.4 H ([facility]) (test code = 412) PLATELET COUNT ([facility]) (test 156 K/CU MM 150-450 code = 756) MEAN PLATELET VOLUME ([facility]) 8.7 fL 9.4-12.4 L (test code = 754) NUCLEATED RED BLOOD CELLS 0 /100 WBC 0-0 ([facility]) (test code = 413) POCT-GLUCOSE [id number] 00:45:00 Test Item Value Reference Range Interpretation Comments POC-GLUCOSE METER 124 mg/dL 70-110 H TESTED AT [place] [address] ([facility]) (test code = [place] 1538) [address] [id number] 19:14:00 Test Item Value Reference Range Interpretation Comments PARTIAL THROMBOPLASTIN TIME 57.8 seconds 22.5-36.0 H ([facility]) (test code = 760) POCT-GLUCOSE [id number] 17:53:00 Test Item Value Reference Range Interpretation Comments POC-GLUCOSE METER 133 mg/dL 70-110 H TESTED AT [place] [address] ([facility]) (test code = [place] [facility] 1538) [address] POCT-GLUCOSE [id number] 13:19:00 Test Item Value Reference Range Interpretation Comments POC-GLUCOSE METER 147 mg/dL 70-110 H TESTED AT [place] [address] ([facility]) (test code = [place] 1538) [address] [id number] 12:43:00 Test Item Value Reference Range Interpretation Comments PARTIAL THROMBOPLASTIN TIME 57.0 seconds 22.5-36.0 H ([facility]) (test code = 760) [id number] 10:17:00 Test Item Value Reference Range Interpretation Comments PARTIAL THROMBOPLASTIN TIME 134.5 seconds 22.5-36.0 H ([facility]) (test code = 760) POCT-GLUCOSE [id number] 07:43:00 Test Item Value Reference Range Interpretation Comments POC-GLUCOSE METER 107 mg/dL 70-110 TESTED AT [place] [address] ([facility]) (test code = [place] Paul [place] 1538) [address] BASIC METABOLIC [id number] 06:46:00 Test Item Value Reference Range Interpretation Comments SODIUM ([facility]) 129 meq/L 136-145 L (test code = [...] PATIEN TS. RAD, CHEST, 1 VIEW, NON [id number] 06:25:00Reason for exam:->Post opShould this be performed [...] Lisa Verified Date/Time: 12/30/2018 06:25:51 Reading Location: [address] Neuro Reading Room PROTHROMBIN TIME/[id number] 06:06:00 Test Item Value Reference Range Interpretation [...] 40.1-51.0 L 411) MEAN CORPUSCULAR VOLUME (BEAKER) 99.6 fL 79.0-92.2 H (test code = [...] 0-0 (BEAKER) (test code = 413) POCT-GLUCOSE [id number] 22:19:00 Test Item Value Reference Range Interpretation Comments POC-GLUCOSE METER 179 mg/dL 70-110 H TESTED AT [place] [address] ([facility]) (test code = [facility] [place] 1538) [address] POCT-GLUCOSE [id number] 17:39:00 Test Item Value Reference Range Interpretation Comments POC-GLUCOSE METER 181 mg/dL 70-110 H TESTED AT [facility] 6720 ([facility]) (test code = [place] 1538) [address] POCT-GLUCOSE [id number] 13:14:00 Test Item Value Reference Range Interpretation Comments POC-GLUCOSE METER 102 mg/dL 70-110 TESTED AT [facility] 6720 ([facility]) (test code = [place] Paul [place] 1538) [address] RAD, CHEST, 1 VIEW, NON [id number] 08:56:00Reason for exam:->Post opShould this be performed [...] interval change. Signed: Edenilson Bloom Verified Date/Time: 12/29/2018 08:56:32 Reading Location: [facility] Radiology Reading Room Electronically signed by: EDENILSON BLOOM M.D.on 12/29/2018 08:56 AMPOCT-GLUCOSE [id number] 07:53:00 Test Item Value Reference Range Interpretation Comments POC-GLUCOSE METER 135 mg/dL 70-110 H TESTED AT [facility] 6720 ([facility]) (test code = [facility] Paul [facility] 1538) [address] [id number] 06:45:00 Test Item Value Reference Range Interpretation Comments PARTIAL THROMBOPLASTIN TIME 83.5 seconds 22.5-36.0 H ([facility]) (test code = 760) While on warfarin.PROTHROMBIN TIME/[id number] 06:44:00 Test Item Value Reference Range Interpretation Comments PROTIME ([facility]) (test code = 17.1 seconds 11.7-14.7 H 759) INR ([facility]) (test code = 370) 1.5 <=5.9 RECOMMENDED [...] RED BLOOD CELLS 0 /100 WBC 0-0 ([facility]) (test code = 413) [id number] 00:01:00 Test Item Value Reference Range Interpretation Comments PARTIAL THROMBOPLASTIN TIME 78.5 seconds 22.5-36.0 H ([facility]) (test code = 760) POCT-GLUCOSE [id number] 21:26:00 Test Item Value Reference Range Interpretation Comments POC-GLUCOSE METER 139 mg/dL 70-110 H TESTED AT [place] [address] ([facility]) (test code = [place] Paul [place] 1538) [address] POCT-GLUCOSE [id number] 17:58:00 Test Item Value Reference Range Interpretation Comments POC-GLUCOSE METER 146 mg/dL 70-110 H TESTED AT [place] [address] ([facility]) (test code = [place] 1538) [address] [id number] 17:16:00 Test Item Value Reference Range Interpretation Comments PARTIAL THROMBOPLASTIN TIME 34.5 seconds 22.5-36.0 ([facility]) (test code = 760) Prior to initiating heparinPOCT-GLUCOSE [id number] 12:54:00 Test Item Value Reference Range Interpretation Comments POC-GLUCOSE METER 133 mg/dL 70-110 H TESTED AT [place] [address] ([facility]) (test code = [place] Paul [place] 1538) [address] RAD, CHEST, 1 VIEW, NON [id number] 08:06:00Reason for exam:->Post opShould this be performed at the bedside?->YesFINAL REPORT Chest one view. Clinical history: Post op Comparison: 12/27/2018 Discussion: A frontal chest is provided. Cardiomediastinal contours are unchanged. Lines and tubesare in stable position. Unchanged right-sided pleural-parenchymal opacities. Left lung is grossly clear. Vessels do not appear engorged. No pneumothorax. Signed: Dionicio Chery Verified Date/Time: 12/28/2018 08:06:07 Reading Location: [address] Neuro Reading Room BASIC METABOLIC [id number] 06:52:00 Test Item Value Reference Range Interpretation [...] NOT APPLICABLE FOR DIALYSIS PATIEN TS. PROTHROMBIN TIME/[id number] 06:31:00 Test Item Value Reference Range Interpretation [...] RED BLOOD CELLS 0 /100 WBC 0-0 ([facility]) (test code = 413) POCT-GLUCOSE [id number] 21:41:00 Test Item Value Reference Range Interpretation Comments POC-GLUCOSE METER 163 mg/dL 70-110 H TESTED AT [facility] 6720 ([facility]) (test code = [facility] Paul [facility] 1538) [address] POCT-GLUCOSE [id number] 17:23:00 Test Item Value Reference Range Interpretation Comments POC-GLUCOSE METER 119 mg/dL 70-110 H TESTED AT [place] [address] ([facility]) (test code = [facility] Paul [facility] 1538) [address] RAD, CHEST, 1 VIEW, NON [id number] 14:49:00Reason for exam:->Post opShould this be performed [...] junction. No othersignificant change. Signed: Kyle Rome MDRjerryort Verified Date/Time: 12/27/2018 14:49:48 Reading Location: [address] Consult Reading Room ANG, NON-TUNNELED CATH >5 Y.O. [id number] 14:17:00Reason for exam:->Central line placement, poor access, [...] guide wire was advanced centrally. A 7 [place] 20 cm triple lumen catheter was advanced [...] Sykes Verified Date/Time: 12/27/2018 14:17:02 Reading Location: [place] [address] Angio Body Reading Room [id number] 13:44:00 Test Item Value Reference Range Interpretation Comments PARTIAL THROMBOPLASTIN TIME 44.3 seconds 22.5-36.0 H (BEAKER) (test code = 760) Prior to initiating heparinPOCT-GLUCOSE [id number] 13:27:00 Test Item Value Reference Range Interpretation Comments POC-GLUCOSE METER 127 mg/dL 70-110 H TESTED AT [facility] 6720 (BEAKER) (test code = [place] Paul [place] 1538) [address] POCT-GLUCOSE [id number] 08:58:00 Test Item Value Reference Range Interpretation Comments POC-GLUCOSE METER 79 mg/dL 70-110 TESTED AT [facility] 6720 (BEAKER) (test code = [facility]ER Paul [facility] [address] 1538) BASIC METABOLIC [id number] 07:09:00 Test Item Value Reference Range Interpretation [...] NOT APPLICABLE FOR DIALYSIS PATIEN TS. PROTHROMBIN TIME/[id number] 06:52:00 Test Item Value Reference Range Interpretation [...] L = 756) MEAN PLATELET VOLUME (BEAKER) 9.1 fL 9.4-12.4 L (test code = 754) NUCLEATED RED BLOOD CELLS (BEAKER) 0 /100 WBC 0-0 (test code = 413) POCT-GLUCOSE [id number] 23:54:00 Test Item Value Reference Range Interpretation Comments POC-GLUCOSE METER 73 mg/dL 70-110 TESTED AT [place] [address] ([facility]) ([facility] = [facility] [address] 1538) POCT-GLUCOSE [id number] 16:02:00 Test Item Value Reference Range Interpretation Comments POC-GLUCOSE METER 108 mg/dL 70-110 TESTED AT [place] [address] ([facility]) (test [facility] = [facility] 1538) [address] POCT-GLUCOSE [id number] 15:24:00 Test Item Value Reference Range Interpretation Comments POC-GLUCOSE METER 74 mg/dL 70-110 TESTED AT [place] [address] ([facility]) (test code = [facility] [address] 1538) POCT-GLUCOSE [id number] 10:29:00 Test Item Value Reference Range Interpretation Comments POC-GLUCOSE METER 88 mg/dL 70-110 TESTED AT [place] [address] ([facility]) (test code = [facility] [address] 1538) RAD, CHEST, 1 VIEW, NON [id number] 07:33:00Reason for exam:->Post opShould this be performed [...] MDReport Verified Date/Time: 12/26/2018 07:33:38 Reading Location: [facility] Radiology Reading Room BASIC METABOLIC [id number] 06:42:00 Test Item Value Reference Range Interpretation [...] = 412) PLATELET COUNT (BEAKER) (test code 84 K/CU MM 150-450 L = 756) MEAN PLATELET VOLUME (BEAKER) 8.6 fL 9.4-12.4 L (test code = 754) NUCLEATED RED BLOOD CELLS (BEAKER) 1 /100 WBC 0-0 H (test code = 413) PROTHROMBIN [id number] 05:44:00 Test Item Value Reference Range Interpretation Comments PROTIME (BEAKER) (test code = 24.4 seconds 11.7-14.7 H 759) INR (BEAKER) (test code = 370) 2.2 <=5.9 RECOMMENDED COUMADIN/WARFARIN INR THERAPY RANGESSTANDARD DOSE: 2.0 - 3.0 Includes: PROPHYLAXIS forvenous thrombosis, systemic embolization; TREATMENT for venous thrombosis and/or pulmonary embolus.HIGH RISK: Target INR is 2.5-3.5 for patients with mechanical heart valves.POCT-GLUCOSE [id number] 00:06:00 Test Item Value Reference Range Interpretation Comments POC-GLUCOSE METER 88 mg/dL 70-110 TESTED AT [facility] [address] ([facility]) (test code = [place] [address] 1538) POCT-GLUCOSE [id number] 19:06:00 Test Item Value Reference Range Interpretation Comments POC-GLUCOSE METER 121 mg/dL 70-110 H TESTED AT [facility] 6720 (BEAKER) (test code = [place] 1538) [address] PROTHROMBIN [id number] 16:10:00 Test Item Value Reference Range Interpretation Comments PROTIME (BEAKER) (test code = 30.1 seconds 11.7-14.7 H 759) INR (BEAKER) (test code = 370) 2.9 <=5.9 RECOMMENDED COUMADIN/WARFARIN INR THERAPY RANGESSTANDARD DOSE: 2.0 - 3.0 Includes: PROPHYLAXIS forvenous thrombosis, systemic embolization; TREATMENT for venous thrombosis and/or pulmonary embolus.HIGH RISK: Target INR is 2.5-3.5 for patients with mechanical heart valves.BASIC METABOLIC [id number] 16:10:00 Test Item Value Reference Range Interpretation [...] S NOT APPLICABLE FOR DIALYSIS PATIEN TS. [id number] 16:09:00 Test Item Value Reference Range Interpretation [...] 0-0 H (test code = 413) POCT-GLUCOSE [id number] 08:03:00 Test Item Value Reference Range Interpretation Comments POC-GLUCOSE METER 89 mg/dL 70-110 TESTED AT [facility] 6720 (BEAKER) (test code = FOSTER Paul [facility] [address] 1538) RAD, CHEST, 1 VIEW, NON [id number] 07:46:00Reason for exam:->Post opShould this be performed at the bedside?->YesFINAL REPORT Chest one view. Clinical history: Post op Comparison: 12/24/2018 Discussion: A frontal chest is provided. Cardiomediastinal contours are unchanged. Stable appearance of pleural-parenchymal opacity at the right mid to lower lung. There is a tiny right apical pneumothorax, unchanged. Probable trace left effusion. Signed: Dionicio Chery Verified Date/Time: 07:46:01 Reading Location: [facility] Radiology Reading Room RAD, ABDOMEN/KUB, 1 VIEW [id number] 07:25:00Reason for exam:->abdominal distentionShould this be performed [...] Chery Verified Date/Time: 12/25/2018 07:25:40 Reading Location: [facility] Radiology Reading Room POCT-GLUCOSE [id number] 22:06:00 Test Item Value Reference Range Interpretation Comments POC-GLUCOSE METER 102 mg/dL 70-110 TESTED AT [place] [address] ([facility]) (test code = [facility] 1538) [address] POCT-GLUCOSE [id number] 18:44:00 Test Item Value Reference Range Interpretation Comments POC-GLUCOSE METER 100 mg/dL 70-110 TESTED AT [place] [address] ([facility]) (test code = [facility] 1538) [address] POCT-GLUCOSE [id number] 14:54:00 Test Item Value Reference Range Interpretation Comments POC-GLUCOSE METER 103 mg/dL 70-110 TESTED AT [place] [address] ([facility]) (test code = [facility] 1538) [address] [id number] 08:07:00 Test Item Value Reference Range Interpretation Comments FERRITIN ([facility]) (test code = 2044 ng/mL 5-275 H 361) POCT-GLUCOSE [id number] 07:57:00 Test Item Value Reference Range Interpretation Comments POC-GLUCOSE METER 76 mg/dL 70-110 TESTED AT [place] [address] ([facility]) (test code = [facility] [address] 1538) RAD, CHEST, 1 VIEW, NON [id number] 07:57:00Reason for exam:->Post opShould this be performed [...] MDReport Verified Date/Time: 12/24/2018 07:57:06 Reading Location: [facility] Radiology Reading Room CBC (HEMOGRAM ONLY) 2018-12-24 [...] H (test code = 413) BASIC METABOLIC [id number] 07:14:00 Test Item Value Reference Range Interpretation [...] S NOT APPLICABLE FOR DIALYSIS PATIEN TS. [id number] 07:08:00 Test Item Value Reference Range Interpretation [...] % 20-55 (test code = 2590) PROTHROMBIN [id number] 07:05:00 Test Item Value Reference Range Interpretation Comments PROTIME (BEAKER) (test code = 38.7 seconds 11.7-14.7 H 759) INR (BEAKER) (test code = 370) 3.9 <=5.9 RECOMMENDED COUMADIN/WARFARIN INR THERAPY RANGESSTANDARD DOSE: 2.0 - 3.0 Includes: PROPHYLAXIS forvenous thrombosis, systemic embolization; TREATMENT for venous thrombosis and/or pulmonary embolus.HIGH RISK: Target INR is 2.5-3.5 for patients with mechanical heart valves.POCT-GLUCOSE [id number] 00:26:00 Test Item Value Reference Range Interpretation Comments POC-GLUCOSE METER 86 mg/dL 70-110 TESTED AT [place] [address] ([facility]) (test code = FOSTER Paul [facility] [address] 1538) POCT-GLUCOSE [id number] 00:26:00 Test Item Value Reference Range Interpretation Comments POC-GLUCOSE METER 137 mg/dL 70-110 H TESTED AT [place] [address] ([facility]) (test code = FOSTER Paul [facility] 1538) [address] POCT-GLUCOSE [id number] 16:07:00 Test Item Value Reference Range Interpretation Comments POC-GLUCOSE METER 72 mg/dL 70-110 TESTED AT [place] [address] ([facility]) (test code = [facility] Humberto [facility] [address] 1538) POCT-GLUCOSE [id number] 16:07:00 Test Item Value Reference Range Interpretation Comments POC-GLUCOSE METER 61 mg/dL 70-110 L TESTED AT [place] [address] ([facility]) (test code = FOSTER Paul [facility] [address] 1538) POCT-GLUCOSE [id number] 11:27:00 Test Item Value Reference Range Interpretation Comments POC-GLUCOSE METER 82 mg/dL 70-110 TESTED AT [place] [address] ([facility]) (test code = [facility] Humberto [facility] [address] 1538) POCT-GLUCOSE [id number] 10:32:00 Test Item Value Reference Range Interpretation Comments POC-GLUCOSE METER 43 mg/dL 70-110 L TESTED AT [place] [address] ([facility]) (test code = [facility] Humberto [facility] [address] 1538) BASIC METABOLIC [id number] 07:28:00 Test Item Value Reference Range Interpretation [...] S NOT APPLICABLE FOR DIALYSIS PATIEN TS. [id number] 07:24:00 Test Item Value Reference Range Interpretation Comments MAGNESIUM (BEAKER) 2.0 mg/dL 1.6-2.6 Specimen slightly (test code = 627) hemolyzed [id number] 07:24:00 Test Item Value Reference Range Interpretation Comments PHOSPHORUS (BEAKER) 4.4 mg/dL 2.3-4.7 Specimen slightly (test code = 604) hemolyzed PROTHROMBIN [id number] 07:20:00 Test Item Value Reference Range Interpretation [...] = 413) RAD, CHEST, 1 VIEW, NON [id number] 04:22:00Reason for exam:->Post opShould this be performed [...] is no no definite pneumothorax. Signed: Raz [facility] Verified Date/Time: 12/23/2018 04:22:43 Reading Location: [facility] C013Y CT Body Reading Room POCT-GLUCOSE [id number] 03:01:00 Test Item Value Reference Range Interpretation Comments POC-GLUCOSE METER 85 mg/dL 70-110 TESTED AT [facility] 6720 (BEAKER) (test code = [place] [address] 1538) BASIC METABOLIC [id number] 18:52:00 Test Item Value Reference Range Interpretation [...] H (BEAKER) (test code = 413) ANAEROBIC [id number] 17:00:00 Test Item Value Reference Range Interpretation Comments CULTURE (BEAKER) (test No anaerobes isolated code = 1095) RAD, CHEST, 1 VIEW, NON [id number] 07:44:00Reason for exam:->Post opShould this be performed [...] Arteaga Verified Date/Time: 12/22/2018 07:44:12 Reading Location: [facility] Radiology Reading Room PROTHROMBIN [id number] 04:31:00 Test Item Value Reference Range Interpretation Comments PROTIME ([facility]) (test code = 63.0 seconds 11.7-14.7 H 759) INR ([facility]) (test code = 370) 7.6 <=5.9 RECOMMENDED COUMADIN/WARFARIN INR THERAPY RANGESSTANDARD DOSE: 2.0 - 3.0 Includes: PROPHYLAXIS forvenous thrombosis, systemic embolization; TREATMENT for venous thrombosis and/or pulmonary embolus.HIGH RISK: Target INR is 2.5-3.5 for patients with mechanical heart valves.While on warfarin.POCT-GLUCOSE METER 2018-12-21 22:29:00 Test Item Value Reference Range Interpretation Comments POC-GLUCOSE METER 141 mg/dL 70-110 H TESTED AT [facility] 67 [facility] (test code = [place]ER Paul [facility] 1538) [address] POCT-GLUCOSE [id number] 13:22:00 Test Item Value Reference Range Interpretation Comments POC-GLUCOSE METER 100 mg/dL 70-110 TESTED AT [facility] 6720 ([facility]) (test code = FOSTER Paul [facility] 1538) [address] RAD, CHEST, 1 VIEW, NON [id number] 08:01:00Reason for exam:->Post opShould this be performed [...] Lisa Verified Date/Time: 12/21/2018 08:01:46 Reading Location: [address] Neuro Reading Room PROTHROMBIN [id number] 05:30:00 Test Item Value Reference Range Interpretation Comments PROTIME ([place]) (test code = 39.1 seconds 11.7-14.7 H 759) INR ([facility]) (test code = 370) 4.0 <=5.9 RECOMMENDED COUMADIN/WARFARIN INR THERAPY RANGESSTANDARD DOSE: 2.0 - 3.0 Includes: PROPHYLAXIS forvenous thrombosis, systemic embolization; TREATMENT for venous thrombosis and/or pulmonary embolus.HIGH RISK: Target INR is 2.5-3.5 for patients with mechanical heart valves.While on warfarin.POCT-GLUCOSE METER 2018-12-20 22:10:00 Test Item Value Reference Range Interpretation Comments POC-GLUCOSE METER 98 mg/dL 70-110 TESTED AT [facility] 6720 ([facility]) (test code = FOSTER Paul [facility] [address] 1538) POCT-GLUCOSE [id number] 17:40:00 Test Item Value Reference Range Interpretation Comments POC-GLUCOSE METER 91 mg/dL 70-110 TESTED AT [facility] 6720 ([facility]) (test code = FOSTER Paul [facility] [address] 1538) POCT-GLUCOSE [id number] 13:13:00 Test Item Value Reference Range Interpretation Comments POC-GLUCOSE METER 73 mg/dL 70-110 TESTED AT [facility] 6720 (BEAKER) (test code = [place] [address] 1538) SURGICALLY OBTAINED CULTURE + GRAM [id number] 08:41:00 Test Item Value Reference Range Interpretation Comments CULTURE (BEAKER) (test No growth code = 1095) GRAM STAIN RESULT No White blood cells (BEAKER) (test code = seen 1123) GRAM STAIN RESULT No organisms seen (BEAKER) (test code = 97058) RAD, CHEST, 1 VIEW, NON [id number] 08:20:00Reason for exam:->Post opShould this be performed [...] MDReport Verified Date/Time: 12/20/2018 08:20:58 Reading Location: [address] Neuro Reading Room BASIC METABOLIC [id number] 08:09:00 Test Item Value Reference Range Interpretation [...] S NOT APPLICABLE FOR DIALYSIS PATIEN TS. [id number] 08:00:00 Test Item Value Reference Range Interpretation Comments PHOSPHORUS (BEAKER) (test code = 4.5 mg/dL 2.3-4.7 604) CALCIUM, [id number] 07:20:00 Test Item Value Reference Range Interpretation Comments CALCIUM IONIZED (BEAKER) (test 1.04 mmol/L 1.12-1.27 L code = 698) PH, BLOOD (BEAKER) (test code = 7.35 1810) PROTHROMBIN [id number] 07:04:00 Test Item Value Reference Range Interpretation [...] 0-0 (BEAKER) (test code = 413) POCT-GLUCOSE [id number] 22:00:00 Test Item Value Reference Range Interpretation Comments POC-GLUCOSE METER 188 mg/dL 70-110 H TESTED AT [place] [address] ([facility]) (test code = [facility] 1538) [address] TISSUE [id number] 18:15:00Surgical Pathology Report Case: [id number] Authorizing Provider: Moiz Vargas, Collected: 12/17/2018 0950 Ordering Location: [facility] Received: 12/17/2018 1129 PERIOPERATIVE SERVICES Pathologist: Kwan Perla MD Specimen: Pleural, Right, RIGHT PLEURAL PEEL PLEURA, RIGHT, DECORTICATION- MILD CHRONIC INFLAMMATION AND GRANULATION TISSUE- ORGANIZING BLOOD CLOTS- NO MALIGNANT CELLS IDENTIFIED Signing Pathologist Direct Phone Line: [phone] signed by Kwan Perla MD on 12/19/2018 at 6:15 PMCorrelation with microbiology cultures is recommended.66857Eqehoom effusion and other conditions classified elsewhereRight pleural peelThe specimen is received in a formalin-filled container labeled with the patient's information and labeled "right pleural peel" and consists of multiple fragments of porter-red, dusky, firm tissue measuring 6 x 5 x 0.4 cm in aggregate. Deep Submergence Vehicle Crewmember sections are submitted in A1-A3. CG/ew Performed.POCT-GLUCOSE [id number] 17:11:00 Test Item Value Reference Range Interpretation Comments POC-GLUCOSE METER 126 mg/dL 70-110 H TESTED AT [facility] 6720 ([facility]) (test code = [place]OSTER Paul [place] 1538) [address] POCT-GLUCOSE [id number] 12:57:00 Test Item Value Reference Range Interpretation Comments POC-GLUCOSE METER 143 mg/dL 70-110 H TESTED AT [facility] 6720 (BEAKER) (test code = FOSTER Paul [place] 1538) [address] POCT-GLUCOSE [id number] 07:27:00 Test Item Value Reference Range Interpretation Comments POC-GLUCOSE METER 141 mg/dL 70-110 H TESTED AT [facility] 6720 (BEAKER) (test code = FOSTER Paul [place] 1538) [address] CALCIUM, [id number] 06:29:00 Test Item Value Reference Range Interpretation Comments CALCIUM IONIZED (BEAKER) (test 1.00 mmol/L 1.12-1.27 L code = 698) PH, BLOOD (BEAKER) (test code = 7.45 1810) RAD, CHEST, 1 VIEW, NON [id number] 04:54:00Reason for exam:->Post opShould this be performed [...] MDReport Verified Date/Time: 2018 04:54:49 Reading Location: [facility] C013Y CT Body Reading Room BASIC METABOLIC [id number] 04:19:00 Test Item Value Reference Range Interpretation [...] S NOT APPLICABLE FOR DIALYSIS PATIEN TS. [id number] 04:16:00 Test Item Value Reference Range Interpretation Comments PHOSPHORUS (BEAKER) (test code = 3.4 mg/dL 2.3-4.7 604) PROTHROMBIN [id number] 04:06:00 Test Item Value Reference Range Interpretation [...] MEAN CORPUSCULAR HEMOGLOBIN 33.2 pg 25.7-32.2 H ([facility]) (test code = 751) MEAN CORPUSCULAR HEMOGLOBIN CONC 32.3 GM/DL 32.3-36.5 ([facility]) (test code = 752) RED CELL DISTRIBUTION WIDTH 15.7 % 11.6-14.4 H ([facility]) (test code = 412) PLATELET COUNT ([facility]) (test 114 K/CU MM 150-450 L code = 756) MEAN PLATELET VOLUME ([facility]) 9.8 fL 9.4-12.4 (test code = 754) NUCLEATED RED BLOOD CELLS 0 /100 WBC 0-0 ([facility]) (test code = 413) POCT-GLUCOSE [id number] 22:11:00 Test Item Value Reference Range Interpretation Comments POC-GLUCOSE METER 149 mg/dL 70-110 H TESTED AT [place] [address] ([facility]) (test code = [facility] 1538) [address] POCT-GLUCOSE [id number] 17:52:00 Test Item Value Reference Range Interpretation Comments POC-GLUCOSE METER 122 mg/dL 70-110 H TESTED AT [place] [address] ([facility]) (test code = [facility] 1538) [address] POCT-GLUCOSE [id number] 14:26:00 Test Item Value Reference Range Interpretation Comments POC-GLUCOSE METER 98 mg/dL 70-110 TESTED AT [place] [address] ([facility]) (test code = [facility] [address] 1538) HEMOGLOBIN AND [id number] 12:47:00 Test Item Value Reference Range Interpretation Comments HEMOGLOBIN ([facility]) (test code = 9.2 GM/DL 13.7-17.5 L 410) HEMATOCRIT ([facility]) (test code = 28.3 % 40.1-51.0 L 411) POCT-GLUCOSE [id number] 09:38:00 Test Item Value Reference Range Interpretation Comments POC-GLUCOSE METER 73 mg/dL 70-110 TESTED AT [place] [address] ([facility]) (test code = [facility] [address] 1538) PROTEIN ELECTROPHORESIS, [id number] 09:21:00 Test Item Value Reference Range Interpretation [...] of chronic inflammation. No monoclonal bands detected. [id number] Amanda De Jesus MD (BEAKER) (test code = (electronic signature) 2616) PROTEIN TOTAL SERUM, 7.5 gm/dL 6.0-8.3 SPEP (BEAKER) (test code = 2660) RAD, CHEST, 1 VIEW, NON [id number] 06:47:00Reason for exam:->Post opShould this be performed [...] MDReport Verified Date/Time: 12/18/2018 06:47:21 Reading Location: [facility] C013Y CT Body Reading Room [id number] 06:20:00 Test Item Value Reference Range Interpretation Comments MAGNESIUM (BEAKER) (test code = 2.2 mg/dL 1.6-2.6 627) CALCIUM, [id number] 06:00:00 Test Item Value Reference Range Interpretation Comments CALCIUM IONIZED (BEAKER) (test 1.09 mmol/L 1.12-1.27 L code = 698) PH, BLOOD (BEAKER) (test code = 7.34 1810) BASIC METABOLIC [id number] 05:07:00 Test Item Value Reference Range Interpretation [...] S NOT APPLICABLE FOR DIALYSIS PATIEN TS. [id number] 04:54:00 Test Item Value Reference Range Interpretation Comments PHOSPHORUS (BEAKER) (test code = 6.3 mg/dL 2.3-4.7 H 604) HEPATIC FUNCTION [id number] 04:54:00 Test Item Value Reference Range Interpretation [...] (test code = 23 U/L 6-55 347) [id number] 04:51:00 Test Item Value Reference Range Interpretation Comments PARTIAL THROMBOPLASTIN TIME 38.6 seconds 22.5-36.0 H (BEAKER) (test code = 760) PROTHROMBIN [id number] 04:50:00 Test Item Value Reference Range Interpretation Comments PROTIME (BEAKER) (test code = 16.0 seconds 11.7-14.7 H 759) INR (BEAKER) (test code = 370) 1.3 <=5.9 RECOMMENDED COUMADIN/WARFARIN INR THERAPY RANGESSTANDARD DOSE: 2.0 - 3.0 Includes: PROPHYLAXIS forvenous thrombosis, systemic embolization; TREATMENT for venous thrombosis and/or pulmonary embolus.HIGH RISK: Target INR is 2.5-3.5 for patients with mechanical heart valves.[id number] 04:50:00 Test Item Value Reference Range Interpretation Comments FIBRINOGEN LEVEL (BEAKER) (test 494 mg/dl 225-434 H code = 658) PLATELET [id number] 04:38:00 Test Item Value Reference Range Interpretation [...] WBC 0-0 (BEAKER) (test code = 413) [id number] 18:48:00 Test Item Value Reference Range Interpretation Comments MAGNESIUM (BEAKER) (test code = 2.4 mg/dL 1.6-2.6 627) POCT-GLUCOSE [id number] 18:42:00 Test Item Value Reference Range Interpretation Comments POC-GLUCOSE METER 121 mg/dL 70-110 H TESTED AT [facility] 6720 (BEAKER) (test code = [place] 1538) [address] HEMOGLOBIN AND [id number] 18:37:00 Test Item Value Reference Range Interpretation Comments HEMOGLOBIN (BEAKER) (test code = 10.0 GM/DL 13.7-17.5 L 410) HEMATOCRIT (BEAKER) (test code = 31.3 % 40.1-51.0 L 411) RAD, CHEST, 1 VIEW, NON [id number] 13:28:00Reason for exam:->post opShould this be performed [...] MDReport Verified Date/Time: 12/17/2018 13:28:23 Reading Location: [facility] Reading Room BASI METABOLIC [id number] 13:03:00 Test Item Value Reference Range Interpretation [...] S NOT APPLICABLE FOR DIALYSIS PATIEN TS. [id number] 12:53:00 Test Item Value Reference Range Interpretation Comments PHOSPHORUS (BEAKER) (test code = 4.3 mg/dL 2.3-4.7 604) [id number] 12:53:00 Test Item Value Reference Range Interpretation Comments MAGNESIUM (BEAKER) (test code = 1.5 mg/dL 1.6-2.6 L 627) LACTIC ACID, [id number] 12:50:00 Test Item Value Reference Range Interpretation Comments LACTATE BLOOD ARTERIAL (2) 0.9 mmol/L 0.5-2.2 (BEAKER) (test code = 2874) CBC W/PLT COUNT & AUTO [id number] 12:47:00 Test Item Value Reference Range Interpretation [...] PERCENT (BEAKER) (test code = 2801) CALCIUM, [id number] 12:26:00 Test Item Value Reference Range Interpretation Comments CALCIUM IONIZED (BEAKER) (test 1.07 mmol/L 1.12-1.27 L code = 698) PH, BLOOD (BEAKER) (test code = 7.38 1810) BLOOD GAS, [id number] 12:26:00 Test Item Value Reference Range Interpretation [...] (test code = 1819) 40.0 % CALCIUM, [id number] 10:25:00 Test Item Value Reference Range Interpretation Comments CALCIUM IONIZED (BEAKER) (test 1.09 mmol/L 1.12-1.27 L code = 698) PH, BLOOD (BEAKER) (test code = 7.45 1810) BLOOD GAS, [id number] 10:22:00 Test Item Value Reference Range Interpretation [...] code = 1819) 96.0 % SODIUM NA-STAT [id number] 10:22:00 Test Item Value Reference Range Interpretation Comments SODIUM (BEAKER) (test code = 381) 133 meq/L 135-148 L GLUCOSE-STAT [id number] 10:22:00 Test Item Value Reference Range Interpretation Comments GLUCOSE RANDOM (BEAKER) (test code 116 mg/dL 70-110 H = 652) HGB/HCT (H&H) - STAT [id number] 10:22:00 Test Item Value Reference Range Interpretation Comments HEMOGLOBIN (BEAKER) (test code = 8.9 g/dL 13.0-16.8 L 410) HEMATOCRIT (BEAKER) (test code = 26.0 % 40.0-50.0 L 411) POTASSIUM-STAT [id number] 10:20:00 Test Item Value Reference Range Interpretation Comments POTASSIUM (BEAKER) (test code = 4.0 meq/L 3.6-5.5 379) HEMOGLOBIN [id number] 09:33:00 Test Item Value Reference Range Interpretation Comments HEMOGLOBIN A1C (BEAKER) (test code = 5.9 % 4.3-6.1 368) BLOOD GAS, [id number] 09:27:00 Test Item Value Reference Range Interpretation [...] code = 1819) 100.0 % SODIUM NA-STAT [id number] 09:27:00 Test Item Value Reference Range Interpretation Comments SODIUM (BEAKER) (test code = 381) 133 meq/L 135-148 L HGB/HCT (H&H) - STAT [id number] 09:27:00 Test Item Value Reference Range Interpretation Comments HEMOGLOBIN (BEAKER) (test code = 9.4 g/dL 13.0-16.8 L 410) HEMATOCRIT (BEAKER) (test code = 28.0 % 40.0-50.0 L 411) GLUCOSE-STAT [id number] 09:26:00 Test Item Value Reference Range Interpretation Comments GLUCOSE RANDOM (BEAKER) (test code = 97 mg/dL 70-110 652) POTASSIUM-STAT [id number] 09:26:00 Test Item Value Reference Range Interpretation Comments POTASSIUM (BEAKER) (test code = 3.9 meq/L 3.6-5.5 379) CALCIUM, [id number] 09:26:00 Test Item Value Reference Range Interpretation Comments CALCIUM IONIZED (BEAKER) (test 1.17 mmol/L 1.12-1.27 code = 698) PH, BLOOD (BEAKER) (test code = 7.44 1810) BLOOD GAS, [id number] 08:32:00 Test Item Value Reference Range Interpretation [...] code = 1819) 96.0 % SODIUM NA-STAT [id number] 08:32:00 Test Item Value Reference Range Interpretation Comments SODIUM (BEAKER) (test code = 381) 133 meq/L 135-148 L GLUCOSE-STAT [id number] 08:32:00 Test Item Value Reference Range Interpretation Comments GLUCOSE RANDOM (BEAKER) (test code 113 mg/dL 70-110 H = 652) HGB/HCT (H&H) - STAT [id number] 08:32:00 Test Item Value Reference Range Interpretation Comments HEMOGLOBIN (BEAKER) (test code = 9.9 g/dL 13.0-16.8 L 410) HEMATOCRIT (BEAKER) (test code = 29.0 % 40.0-50.0 L 411) CALCIUM, [id number] 08:31:00 Test Item Value Reference Range Interpretation Comments CALCIUM IONIZED (BEAKER) (test 1.05 mmol/L 1.12-1.27 L code = 698) PH, BLOOD (BEAKER) (test code = 7.49 1810) POTASSIUM-STAT [id number] 08:29:00 Test Item Value Reference Range Interpretation Comments POTASSIUM (BEAKER) (test code = 3.6 meq/L 3.6-5.5 379) POCT-GLUCOSE [id number] 06:20:00 Test Item Value Reference Range Interpretation Comments POC-GLUCOSE METER 99 mg/dL 70-110 TESTED AT [facility] 6720 (BEAKER) (test code = [place] [address] 1538) [id number] 05:05:00 Test Item Value Reference Range Interpretation Comments PARTIAL THROMBOPLASTIN TIME 75.6 seconds 22.5-36.0 H (BEAKER) (test code = 760) LIPID [id number] 05:04:00 Test Item Value Reference Range Interpretation Comments TRIGLYCERIDES (BEAKER) (test code = 53 mg/dL 540) CHOLESTEROL (BEAKER) (test code = 122 mg/dL 631) HDL CHOLESTEROL (BEAKER) (test code 58 mg/dL = 976) LDL CHOLESTEROL CALCULATED (BEAKER) 53 mg/dL (test code = 633) Triglyceride Reference Range: Low Risk <150 Borderline 150-199 High Risk 200-499 Very High Risk >=500Cholesterol Reference Range: Low Risk <200 Borderline 200-239 High Risk >240HDL Cholesterol Reference Range: Low Risk >=60 High Risk <40LDL Cholesterol Reference Range: Optimal <100 Near Optimal 100-129 Borderline 130-159 High 160-189 Very High >=190PROTHROMBIN [id number] 05:03:00 Test Item Value Reference Range Interpretation Comments PROTIME (BEAKER) (test code = 15.4 seconds 11.7-14.7 H 759) INR (BEAKER) (test code = 370) 1.2 <=5.9 RECOMMENDED COUMADIN/WARFARIN INR THERAPY RANGESSTANDARD DOSE: 2.0 - 3.0 Includes: PROPHYLAXIS forvenous thrombosis, systemic embolization; TREATMENT for venous thrombosis and/or pulmonary embolus.HIGH RISK: Target INR is 2.5-3.5 for patients with mechanical heart valves.POCT-GLUCOSE [id number] 21:17:00 Test Item Value Reference Range Interpretation Comments POC-GLUCOSE METER 223 mg/dL 70-110 H TESTED AT [facility] 67[address] (BEAKER) (test code = [place] 1538) [address] COMPREHENSIVE METABOLIC [id number] 18:57:00 Test Item Value Reference Range Interpretation Comments TOTAL PROTEIN 7.8 gm/dL 6.0-8.3 (BEAKER) (test code = 770) ALBUMIN (BEAKER) 3.1 g/dL 3.5-5.0 L (test code = [...] S NOT APPLICABLE FOR DIALYSIS PATIEN TS. [id number] 18:46:00 Test Item Value Reference Range Interpretation Comments MAGNESIUM (BEAKER) (test code = 1.8 mg/dL 1.6-2.6 627) CBC W/PLT COUNT & AUTO [id number] 18:10:00 Test Item Value Reference Range Interpretation [...] (test code = 416) BASOPHILS ABSOLUTE COUNT ([facility]) 0.03 K/ L 0.01-0.08 (test code = 417) IMMATURE GRANULOCYTES-RELATIVE 1 % 0-1 PERCENT ([facility]) (test code = 2801) POCT-GLUCOSE [id number] 17:34:00 Test Item Value Reference Range Interpretation Comments POC-GLUCOSE METER 169 mg/dL 70-110 H TESTED AT [facility] 6720 ([facility]) (test code = FOSTER Paul [facility] 1538) [address] HEPARIN [id number] 13:40:00 Test Item Value Reference Range Interpretation Comments HEPARIN ANTIBODY ([facility]) (test code Negative Negative = 646) HEPARIN ANTIBODY OD ([facility]) (test 0.105 <0.400 code = 2659) 4T TOTAL SCORE ([facility]) (test code = 4 8718) Probability of HIT based on scoring system: 6-8 = High probability; 4-5 = intermediate probability;0-3 = low probabilityPOCT-GLUCOSE [id number] 12:51:00 Test Item Value Reference Range Interpretation Comments POC-GLUCOSE METER 66 mg/dL 70-110 L Notified R Toy PÉREZ/TESTED AT ([facility]) (test code = [place] [address] JOSE ANTONIO 1538) [place] [address] POCT-GLUCOSE [id number] 07:54:00 Test Item Value Reference Range Interpretation Comments POC-GLUCOSE METER 75 mg/dL 70-110 TESTED AT [place] [id number] ([facility]) (test code = FOSTER Paul [facility] [address] 1538) [id number] 04:21:00 Test Item Value Reference Range Interpretation Comments PROTIME ([facility]) (test code = 15.4 seconds 11.7-14.7 H 759) INR ([facility]) (test code = 370) 1.2 <=5.9 PARTIAL THROMBOPLASTIN TIME 74.0 seconds 22.5-36.0 H ([facility]) (test code = 760) RECOMMENDED COUMADIN/WARFARIN INR THERAPY RANGESSTANDARD DOSE: 2.0 - 3.0 Includes: PROPHYLAXIS forvenous thrombosis, systemic embolization; TREATMENT for venous thrombosis and/or pulmonary embolus.HIGH RISK: Target INR is 2.5-3.5 for patients with mechanical heart valves.[id number] 04:20:00 Test Item Value Reference Range Interpretation Comments FIBRINOGEN LEVEL ([facility]) (test 525 mg/dl 225-434 H code = 658) POCT-GLUCOSE [id number] 21:25:00 Test Item Value Reference Range Interpretation Comments POC-GLUCOSE METER 129 mg/dL 70-110 H TESTED AT [place] [address] ([facility]) (test code = FOSTER Paul [facility] 1538) [address] [id number] 18:23:00 Test Item Value Reference Range Interpretation Comments PARTIAL THROMBOPLASTIN TIME 72.0 seconds 22.5-36.0 H ([facility]) (test code = 760) POCT-GLUCOSE [id number] 16:20:00 Test Item Value Reference Range Interpretation Comments POC-GLUCOSE METER 142 mg/dL 70-110 H TESTED AT [place] [address] ([facility]) (test code = FOSTER Paul [facility] 1538) [address] POCT-GLUCOSE [id number] 13:05:00 Test Item Value Reference Range Interpretation Comments POC-GLUCOSE METER 86 mg/dL 70-110 TESTED AT [place] [address] ([facility]) (test code = FOSTER Paul [facility] [address] 1538) [id number] 11:19:00 Test Item Value Reference Range Interpretation Comments PARTIAL THROMBOPLASTIN TIME 72.3 seconds 22.5-36.0 H ([facility]) (test code = 760) POCT-GLUCOSE [id number] 07:56:00 Test Item Value Reference Range Interpretation Comments POC-GLUCOSE METER 87 mg/dL 70-110 TESTED AT [place] [address] ([facility]) (test code = FOSTER Paul [facility] [address] 1538) [id number] 03:13:00 Test Item Value Reference Range Interpretation Comments PARTIAL THROMBOPLASTIN TIME 97.1 seconds 22.5-36.0 H ([facility]) (test code = 760) PROTHROMBIN [id number] 03:11:00 Test Item Value Reference Range Interpretation Comments PROTIME ([facility]) (test code = 16.5 seconds 11.7-14.7 H 759) INR ([facility]) (test code = 370) 1.3 <=5.9 RECOMMENDED [...] L 410) HEMATOCRIT (BEAKER) (test code = 32.4 % 40.1-51.0 L 411) MEAN CORPUSCULAR VOLUME (BEAKER) 103.5 fL 79.0-92.2 H (test code = 753) MEAN CORPUSCULAR HEMOGLOBIN 33.9 pg 25.7-32.2 H (BEAKER) (test code = 751) MEAN CORPUSCULAR HEMOGLOBIN CONC 32.7 GM/DL 32.3-36.5 (BEAKER) (test code = 752) RED CELL DISTRIBUTION WIDTH 14.9 % 11.6-14.4 H (BEAKER) (test code = 412) PLATELET COUNT (BEAKER) (test code 77 K/CU MM 150-450 L = 756) MEAN PLATELET VOLUME (BEAKER) 8.9 fL 9.4-12.4 L (test code = 754) NUCLEATED RED BLOOD CELLS (BEAKER) 0 /100 WBC 0-0 (test code = 413) POCT-GLUCOSE [id number] 21:26:00 Test Item Value Reference Range Interpretation Comments POC-GLUCOSE METER 121 mg/dL 70-110 H TESTED AT [facility] 6720 ([facility]) (test code = FOSTER [place] 1538) [address] [id number] 19:05:00 Test Item Value Reference Range Interpretation Comments PARTIAL THROMBOPLASTIN TIME 64.0 seconds 22.5-36.0 H (AKER) (test code = 760) POCT-GLUCOSE [id number] 17:24:00 Test Item Value Reference Range Interpretation Comments POC-GLUCOSE METER 131 mg/dL 70-110 H TESTED AT [place] [address] ([facility]) (test code = FOSTER Paul [facility] 1538) [address] [id number] 13:32:00 Test Item Value Reference Range Interpretation Comments PARTIAL THROMBOPLASTIN TIME 81.4 seconds 22.5-36.0 H ([facility]) (test code = 760) POCT-GLUCOSE [id number] 12:32:00 Test Item Value Reference Range Interpretation Comments POC-GLUCOSE METER 102 mg/dL 70-110 TESTED AT [place] [address] ([facility]) (test code = FOSTER Paul [facility] 1538) [address] POCT-GLUCOSE [id number] 07:07:00 Test Item Value Reference Range Interpretation Comments POC-GLUCOSE METER 113 mg/dL 70-110 H TESTED AT [place] [address] ([facility]) (test code = FOSTER Paul [facility] 1538) [address] [id number] 05:47:00 Test Item Value Reference Range Interpretation Comments PARTIAL THROMBOPLASTIN TIME 91.8 seconds 22.5-36.0 H ([facility]) (test code = 760) POCT-GLUCOSE [id number] 21:27:00 Test Item Value Reference Range Interpretation Comments POC-GLUCOSE METER 90 mg/dL 70-110 TESTED AT [place] [address] ([facility]) (test code = FOSTER Paul [facility] [address] 1538) POCT-GLUCOSE [id number] 17:46:00 Test Item Value Reference Range Interpretation Comments POC-GLUCOSE METER 175 mg/dL 70-110 H TESTED AT [place] [address] ([facility]) (test code = FOSTER Paul [facility] 1538) [address] POCT-GLUCOSE [id number] 17:30:00 Test Item Value Reference Range Interpretation Comments POC-GLUCOSE METER 84 mg/dL 70-110 TESTED AT [place] [address] ([facility]) (test code = [facility] Humberto [facility] [address] 1538) [id number] 13:20:00 Test Item Value Reference Range Interpretation Comments PARTIAL THROMBOPLASTIN TIME 68.4 seconds 22.5-36.0 H ([facility]) (test code = 760) BASIC METABOLIC [id number] 10:36:00 Test Item Value Reference Range Interpretation Comments SODIUM ([facility]) 133 meq/L 136-145 L (test code = [...] NOT APPLICABLE FOR DIALYSIS PATIEN TS. POCT-GLUCOSE [id number] 07:43:00 Test Item Value Reference Range Interpretation Comments POC-GLUCOSE METER 84 mg/dL 70-110 TESTED AT [facility] 6720 (BEAKER) (test code = [place] [address] 1538) [id number] 06:52:00 Test Item Value Reference Range Interpretation Comments PARTIAL THROMBOPLASTIN TIME 76.5 seconds 22.5-36.0 H (BEAKER) (test code = 760) PROTHROMBIN [id number] 06:51:00 Test Item Value Reference Range Interpretation [...] 0-1 PERCENT (BEAKER) (test code = 2801) [id number] 00:11:00 Test Item Value Reference Range Interpretation Comments PARTIAL THROMBOPLASTIN TIME 59.7 seconds 22.5-36.0 H (BEAKER) (test code = 760) POCT-GLUCOSE [id number] 21:33:00 Test Item Value Reference Range Interpretation Comments POC-GLUCOSE METER 113 mg/dL 70-110 H TESTED AT [place] [address] ([facility]) (test code = [place]OSTER Paul [place] 1538) [address] POCT-GLUCOSE [id number] 18:08:00 Test Item Value Reference Range Interpretation Comments POC-GLUCOSE METER 128 mg/dL 70-110 H TESTED AT [place] [address] ([facility]) (test code = FOSTER Paul [place] 1538) [address] [id number] 16:51:00 Test Item Value Reference Range Interpretation Comments PARTIAL THROMBOPLASTIN TIME 71.6 seconds 22.5-36.0 H (BEAKER) (test code = 760) POCT-GLUCOSE [id number] 12:39:00 Test Item Value Reference Range Interpretation Comments POC-GLUCOSE METER 124 mg/dL 70-110 H TESTED AT [place] [address] ([facility]) (test code = [place]OSTER Paul [place] 1538) [address] [id number] 09:07:00 Test Item Value Reference Range Interpretation Comments PARTIAL THROMBOPLASTIN TIME 96.6 seconds 22.5-36.0 H (BEAKER) (test code = 760) POCT-GLUCOSE [id number] 07:48:00 Test Item Value Reference Range Interpretation Comments POC-GLUCOSE METER 105 mg/dL 70-110 TESTED AT [place] [address] ([facility]) (test code = FOSTER Paul [facility] 1538) [address] BASIC METABOLIC [id number] 01:54:00 Test Item Value Reference Range Interpretation [...] I S NOT APPLICABLE FOR DIALYSIS PATIEN [id number] 01:37:00 Test Item Value Reference Range Interpretation Comments PARTIAL THROMBOPLASTIN TIME 53.4 seconds 22.5-36.0 H (BEAKER) (test code = 760) PROTHROMBIN [id number] 01:36:00 Test Item Value Reference Range Interpretation [...] ABSOLUTE COUNT 6.28 K/ L 1.78-5.38 H (BEAKER) (test code [...] PERCENT (BEAKER) (test code = 2801) POCT-GLUCOSE [id number] 21:57:00 Test Item Value Reference Range Interpretation Comments POC-GLUCOSE METER 165 mg/dL 70-110 H TESTED AT [place] [address] ([facility]) (test code = FOSTER [place] 1538) [address] [id number] 18:46:00 Test Item Value Reference Range Interpretation Comments PARTIAL THROMBOPLASTIN TIME 39.0 seconds 22.5-36.0 H ([facility]) (test code = 760) POCT-GLUCOSE [id number] 17:51:00 Test Item Value Reference Range Interpretation Comments POC-GLUCOSE METER 157 mg/dL 70-110 H TESTED AT [place] [address] ([facility]) (test code = FOSTER [place] 1538) [address] POCT-GLUCOSE [id number] 17:09:00 Test Item Value Reference Range Interpretation Comments POC-GLUCOSE METER 162 mg/dL 70-110 H TESTED AT [place] [address] ([facility]) (test code = FOSTER Paul [place] 1538) [address] [id number] 16:07:00 Test Item Value Reference Range Interpretation Comments PARTIAL THROMBOPLASTIN TIME 117.0 seconds 22.5-36.0 H ([facility]) (test code = 760) POCT-GLUCOSE [id number] 13:28:00 Test Item Value Reference Range Interpretation Comments POC-GLUCOSE METER 88 mg/dL 70-110 TESTED AT [place] [address] ([facility]) (test code = FOSTER Paul [facility] [address] 1538) [id number] 09:17:00 Test Item Value Reference Range Interpretation Comments PARTIAL THROMBOPLASTIN TIME 71.7 seconds 22.5-36.0 H ([facility]) (test code = 760) POCT-GLUCOSE [id number] 08:07:00 Test Item Value Reference Range Interpretation Comments POC-GLUCOSE METER 137 mg/dL 70-110 H TESTED AT [place] [address] ([facility]) (test code = FOSTER Paul [place] 1538) [address] [id number] 02:27:00 Test Item Value Reference Range Interpretation Comments PARTIAL THROMBOPLASTIN TIME 62.4 seconds 22.5-36.0 H ([facility]) (test code = 760) PROTHROMBIN [id number] 02:26:00 Test Item Value Reference Range Interpretation Comments PROTIME (BEAKER) (test code = 20.0 seconds 11.7-14.7 H 759) INR (BEAKER) (test code = 370) 1.7 <=5.9 RECOMMENDED COUMADIN/WARFARIN INR THERAPY RANGESSTANDARD DOSE: 2.0 - 3.0 Includes: PROPHYLAXIS forvenous thrombosis, systemic embolization; TREATMENT for venous thrombosis and/or pulmonary embolus.HIGH RISK: Target INR is 2.5-3.5 for patients with mechanical heart valves.BASIC METABOLIC [id number] 02:02:00 Test Item Value Reference Range Interpretation [...] PATIEN TS. CBC W/PLT COUNT & AUTO [id number] 01:42:00 Test Item Value Reference Range Interpretation [...] PERCENT (BEAKER) (test code = 2801) POCT-GLUCOSE [id number] 21:12:00 Test Item Value Reference Range Interpretation Comments POC-GLUCOSE METER 199 mg/dL 70-110 H TESTED AT [place] [address] ([facility]) (test code = [place] 1538) [address] POCT-GLUCOSE [id number] 17:39:00 Test Item Value Reference Range Interpretation Comments POC-GLUCOSE METER 145 mg/dL 70-110 H TESTED AT [place] [address] ([facility]) (test code = [place] 1538) [address] [id number] 17:33:00 Test Item Value Reference Range Interpretation Comments PARTIAL THROMBOPLASTIN TIME 47.3 seconds 22.5-36.0 H (AKER) (test code = 760) POCT-GLUCOSE [id number] 12:53:00 Test Item Value Reference Range Interpretation Comments POC-GLUCOSE METER 203 mg/dL 70-110 H TESTED AT [place] [address] ([facility]) (test code = [place] 1538) [address] POCT-GLUCOSE [id number] 08:28:00 Test Item Value Reference Range Interpretation Comments POC-GLUCOSE METER 98 mg/dL 70-110 TESTED AT [place] [address] (BEAKER) (test code = [place] [address] 1538) BASIC METABOLIC [id number] 05:52:00 Test Item Value Reference Range Interpretation [...] NOT APPLICABLE FOR DIALYSIS PATIEN TS. PROTHROMBIN [id number] 05:51:00 Test Item Value Reference Range Interpretation [...] PERCENT (BEAKER) (test code = 2801) POCT-GLUCOSE [id number] 20:54:00 Test Item Value Reference Range Interpretation Comments POC-GLUCOSE METER 126 mg/dL 70-110 H TESTED AT [facility] 6720 (BEAKER) (test code = FOSTER [place] 1538) [address] POCT-GLUCOSE [id number] 18:47:00 Test Item Value Reference Range Interpretation Comments POC-GLUCOSE METER 70 mg/dL 70-110 TESTED AT [facility] 6720 (BEAKER) (test code = FOSTER Paul [facility] [address] 1538) POCT-GLUCOSE [id number] 13:25:00 Test Item Value Reference Range Interpretation Comments POC-GLUCOSE METER 120 mg/dL 70-110 H TESTED AT [facility] 67 (BEAKER) (test code = FOSTER Paul [facility] 1538) [address] POCT-GLUCOSE [id number] 09:32:00 Test Item Value Reference Range Interpretation Comments POC-GLUCOSE METER 104 mg/dL 70-110 TESTED AT [place] [address] (BEAKER) (test code = FOSTER Paul [facility] 1538) [address] BASIC METABOLIC [id number] 05:59:00 Test Item Value Reference Range Interpretation [...] NOT APPLICABLE FOR DIALYSIS PATIEN TS. PROTHROMBIN [id number] 05:20:00 Test Item Value Reference Range Interpretation [...] PERCENT (BEAKER) (test code = 2801) POCT-GLUCOSE [id number] 21:14:00 Test Item Value Reference Range Interpretation Comments POC-GLUCOSE METER 200 mg/dL 70-110 H TESTED AT [place] [address] ([facility]) (test code = [facility] 1538) [address] POCT-GLUCOSE [id number] 17:34:00 Test Item Value Reference Range Interpretation Comments POC-GLUCOSE METER 143 mg/dL 70-110 H TESTED AT [place] [address] ([facility]) (test code = [facility] 1538) [address] POCT-GLUCOSE [id number] 12:04:00 Test Item Value Reference Range Interpretation Comments POC-GLUCOSE METER 160 mg/dL 70-110 H TESTED AT [place] [address] ([facility]) (test code = [facility] 1538) [address] POCT-GLUCOSE [id number] 08:08:00 Test Item Value Reference Range Interpretation Comments POC-GLUCOSE METER 154 mg/dL 70-110 H TESTED AT [place] [address] ([facility]) (test code = [facility] 1538) [address] BASIC METABOLIC [id number] 06:33:00 Test Item Value Reference Range Interpretation [...] I S NOT APPLICABLE FOR DIALYSIS PATIEN [id number] 06:01:00 Test Item Value Reference Range Interpretation Comments PARTIAL THROMBOPLASTIN TIME 117.2 seconds 22.5-36.0 H (BEAKER) (test code = 760) PROTHROMBIN [id number] 05:56:00 Test Item Value Reference Range Interpretation [...] % 0-1 PERCENT (BEAKER) (test code = 2803) POCT-GLUCOSE [id number] 21:37:00 Test Item Value Reference Range Interpretation Comments POC-GLUCOSE METER 121 mg/dL 70-110 H TESTED AT [place] [address] ([facility]) (test code = FOSTER [place] 1538) [address] POCT-GLUCOSE [id number] 19:01:00 Test Item Value Reference Range Interpretation Comments POC-GLUCOSE METER 191 mg/dL 70-110 H TESTED AT [place] [address] ([facility]) (test code = [place] 1538) [address] [id number] 18:31:00 Test Item Value Reference Range Interpretation Comments PARTIAL THROMBOPLASTIN TIME 86.2 seconds 22.5-36.0 H (AKER) (test code = 760) POCT-GLUCOSE [id number] 13:05:00 Test Item Value Reference Range Interpretation Comments POC-GLUCOSE METER 130 mg/dL 70-110 H TESTED AT [facility] 6720 (BEAKER) (test code = [facility] 1538) [address] RAD, CHEST, 1 VIEW, NON [id number] 12:22:00Reason for exam:->pleural effusionsShould this be performed [...] MDReport Verified Date/Time: 12/07/2018 12:22:50 Reading Location: [address] Neuro Reading Room [id number] 11:39:00 Test Item Value Reference Range Interpretation Comments PARTIAL THROMBOPLASTIN TIME 100.1 seconds 22.5-36.0 H (BEAKER) (test code = 760) BODY FLUID CULTURE + GRAM [id number] 10:13:00 Test Item Value Reference Range Interpretation Comments CULTURE (BEAKER) (test No growth code = 1095) GRAM STAIN RESULT <1+ White blood cells (BEAKER) (test code = seen 1123) GRAM STAIN RESULT No organisms seen (BEAKER) (test code = 46390) POCT-GLUCOSE [id number] 08:51:00 Test Item Value Reference Range Interpretation Comments POC-GLUCOSE METER 90 mg/dL 70-110 TESTED AT [facility] 6720 (BEAKER) (test code = [facility] [address] 1538) BASIC METABOLIC [id number] 07:31:00 Test Item Value Reference Range Interpretation [...] S NOT APPLICABLE FOR DIALYSIS PATIEN TS. [id number] 05:21:00 Test Item Value Reference Range Interpretation Comments PARTIAL THROMBOPLASTIN TIME 104.0 seconds 22.5-36.0 H (BEAKER) (test code = 760) PROTHROMBIN [id number] 04:50:00 Test Item Value Reference Range Interpretation [...] 0-1 PERCENT (BEAKER) (test code = 2801) [id number] 20:33:00 Test Item Value Reference Range Interpretation Comments PARTIAL THROMBOPLASTIN TIME 87.6 seconds 22.5-36.0 H (BEAKER) (test code = 760) POCT-GLUCOSE [id number] 19:30:00 Test Item Value Reference Range Interpretation Comments POC-GLUCOSE METER 112 mg/dL 70-110 H TESTED AT [facility] 6720 (BEAKER) (test code = [place]ER [place] 1538) [address] [id number] 13:55:00 Test Item Value Reference Range Interpretation Comments PARTIAL THROMBOPLASTIN TIME 85.9 seconds 22.5-36.0 H (BEAKER) (test code = 760) POCT-GLUCOSE [id number] 09:12:00 Test Item Value Reference Range Interpretation Comments POC-GLUCOSE METER 112 mg/dL 70-110 H TESTED AT [facility] 6720 (BEAKER) (test code = [place] 1538) [address] BASIC METABOLIC [id number] 08:53:00 Test Item Value Reference Range Interpretation [...] S NOT APPLICABLE FOR DIALYSIS PATIEN TS. [id number] 06:04:00 Test Item Value Reference Range Interpretation Comments PARTIAL THROMBOPLASTIN TIME 105.5 seconds 22.5-36.0 H (BEAKER) (test code = 760) PROTHROMBIN [id number] 05:44:00 Test Item Value Reference Range Interpretation [...] (test code = 2801) CT, CHEST, WITHOUT [id number] 03:17:00FINAL REPORT EXAM: CT of the chest, [...] left pleural effusion with associated compressive atelectasis. Buyvz-xu-nxtbuxri loculated right pleural effusion with pleural thickening [...] Taylor Verified Date/Time: 12/06/2018 03:17:03 Reading Location: [facility] C013Y CT Body Reading Room POCT-GLUCOSE [id number] 21:22:00 Test Item Value Reference Range Interpretation Comments POC-GLUCOSE METER 171 mg/dL 70-110 H TESTED AT [place] [address] (BEAKER) (test code = FOSTER Paul [place] 1538) [address] POCT-GLUCOSE [id number] 17:58:00 Test Item Value Reference Range Interpretation Comments POC-GLUCOSE METER 128 mg/dL 70-110 H TESTED AT [place] [address] ([facility]) (test code = FOSTER Paul [place] 1538) [address] POCT-GLUCOSE [id number] 13:24:00 Test Item Value Reference Range Interpretation Comments POC-GLUCOSE METER 129 mg/dL 70-110 H TESTED AT [place] [address] ([facility]) (test code = FOSTER Paul [place] 1538) [address] LACTATE DEHYDROGENASE (LDH)2018-12-05 13:14:00 Test Item Value Reference Range Interpretation Comments LACTATE DEHYDROGENASE (BEAKER) (test 291 U/L 125-220 H code = 635) [id number] 13:10:00 Test Item Value Reference Range Interpretation Comments PARTIAL THROMBOPLASTIN TIME 91.7 seconds 22.5-36.0 H (BEAKER) (test code = 760) POCT-GLUCOSE [id number] 08:19:00 Test Item Value Reference Range Interpretation Comments POC-GLUCOSE METER 106 mg/dL 70-110 TESTED AT [place] [address] ([facility]) (test code = FOSTER Paul [facility] 1538) [address] BASIC METABOLIC [id number] 07:05:00 Test Item Value Reference Range Interpretation [...] S NOT APPLICABLE FOR DIALYSIS PATIEN TS. [id number] 06:32:00 Test Item Value Reference Range Interpretation [...] 2.5-3.5 for patients with mechanical heart valves.PROTHROMBIN TIME/[id number] 06:30:00 Test Item Value Reference Range Interpretation [...] % 0-1 PERCENT (BEAKER) (test code = 2808) [id number] 00:40:00 Test Item Value Reference Range Interpretation Comments PARTIAL THROMBOPLASTIN TIME 63.1 seconds 22.5-36.0 H (BEAKER) (test code = 760) POCT-GLUCOSE [id number] 00:12:00 Test Item Value Reference Range Interpretation Comments POC-GLUCOSE METER 124 mg/dL 70-110 H TESTED AT [facility] 6720 ([facility]) (test code = FOSTER [place] 1538) [address] HEPATITIS B SURFACE [id number] 22:54:00 Test Item Value Reference Range Interpretation Comments HEPATITIS B SURFACE ANTIGEN (2) Nonreactive Nonreactive (BEAKER) (test code = 2585) For chronic HD patients, draw HBsAg with each admission then every 30 days.BODY FLUID CELL COUNT WITH [id number] 20:34:00 Test Item Value Reference Range Interpretation Comments APPEARANCE FLUID (BEAKER) (test Cloudy Clear A code = 510) COLOR FLUID (BEAKER) (test code Brown Colorless, Straw A = 511) RBC FLUID (BEAKER) (test code = 25881 /cu mm <=1 H 513) ADJUSTED WBC [...] code = 2873) LACTATE DEHYDROGENASE (LDH), BODY [id number] 19:43:00 Test Item Value Reference Range Interpretation [...] local 1% lidocaine anesthesia was administered.A 4 [place] catheter was advanced into the largest pocket of the septated pleural effusion and 300 ccof bloody fluid was removed. The catheter was removed without immediate complication. Samples were sent for analysis. IMPRESSION:Uncomplicated ultrasound-guided right thoracentesis with 300 cc fluid removed. Signed: Raimundo Kim MDReport Verified Date/Time: 12/04/2018 18:00:50 Reading Location: [facility] [id number] Ultrasound Reading Room RAD, CHEST, 1 VIEW, NON [id number] 17:23:00Reason for exam:->s/p right thoracentesisShould this be [...] MDReport Verified Date/Time: 12/04/2018 17:23:06 Reading Location: [facility] Mammo Reading Room C. DIFFICILE GDH [id number] 10:01:00 Test Item Value Reference Range Interpretation Comments CDT TOXIN (test code Negative Negative = [id number]) CDT GDH ANTIGEN Positive Negative A C. difficile present but (test code = toxin not detec jayla. [id number]) Indicates colon ization with non-toxige ron strain [...] of kit performance was done by the [facility] Microbiology Lab prior to clinical use.[id number] 09:39:00 Test Item Value Reference Range Interpretation Comments PARTIAL THROMBOPLASTIN TIME 79.4 seconds 22.5-36.0 H (BEAKER) (test code = 760) OCCULT BLOOD, [id number] 05:59:00 Test Item Value Reference Range Interpretation Comments FECAL OCCULT BLOOD (BEAKER) (test Negative Negative code = 618) BASIC METABOLIC [id number] 02:50:00 Test Item Value Reference Range Interpretation [...] S NOT APPLICABLE FOR DIALYSIS PATIEN TS. [id number] 02:50:00 Test Item Value Reference Range Interpretation Comments PARTIAL THROMBOPLASTIN TIME 35.3 seconds 22.5-36.0 (BEAKER) (test code = 760) Prior to initiating heparinPROTHROMBIN TIME/[id number] 02:49:00 Test Item Value Reference Range Interpretation [...] acute neurological disease, and persistent tachyarrhythmia.HEPATIC FUNCTION [id number] 02:43:00 Test Item Value Reference Range Interpretation [...] 6-55 347) CBC W/PLT COUNT & AUTO [id number] 02:21:00 Test Item Value Reference Range Interpretation [...] PERCENT (BEAKER) (test code = 2801) POCT-GLUCOSE [id number] 21:22:00 Test Item Value Reference Range Interpretation Comments POC-GLUCOSE METER 192 mg/dL 70-110 H TESTED AT [facility] 6720 ([facility]) (test code = MARIA GOSMAN Paul [facility] 1538) [address] TROPONIN [id number] 17:09:00 Test Item Value Reference Range Interpretation [...] and persistent tachyarrhythmia.RAD, CHEST, 1 VIEW, NON [id number] 15:36:00Reason for exam:->SHORTNESS OF BREATHShould this be performed at the bedside?->YesFINAL REPORT AP chest HISTORY: Shortness of breath. COMPARISON: 11/03/2017. IMPRESSION: Cardiomegaly. Mild interstitial edema. Right effusion and adjacent atelectasis. No pneumothorax. Signed: Mandy Chairez MDReport Verified Date/Time: 12/03/2018 15:36:19 Reading Location: [address] Radiology Reading Room TROPONIN [id number] 14:48:00 Test Item Value Reference Range Interpretation [...] (BEAKER) (test code = 700) BASIC METABOLIC [id number] 14:40:00 Test Item Value Reference Range Interpretation [...] S NOT APPLICABLE FOR DIALYSIS PATIEN TS. [id number] 14:34:00 Test Item Value Reference Range Interpretation [...] (test code = 2801) RAD, CHEST, 2 [id number] 15:24:00Reason for Exam:->chronic Diastolic heart FailureFINAL REPORT [...] MDReport Verified Date/Time: 11/03/2018 15:24:42 Reading Location: [address] Radiology Reading Room MISCELLANEOUS LAB [id number] 08:22:00 Test Item Value Reference Range Interpretation Comments SCAN RESULT (test code = 4880672) PROTHROMBIN TIME/[id number] 08:37:00 Test Item Value Reference Range Interpretation Comments PROTIME (BEAKER) (test code = 24.8 seconds 11.7-14.7 H 759) INR (BEAKER) (test code = 370) 2.2 <=5.9 RECOMMENDED COUMADIN/WARFARIN INR THERAPY RANGESSTANDARD DOSE: 2.0 - 3.0 Includes: PROPHYLAXIS forvenous thrombosis, systemic embolization; TREATMENT for venous thrombosis and/or pulmonary embolus.HIGH RISK: Target INR is 2.5-3.5 for patients with mechanical heart valves.POCT-GLUCOSE [id number] 08:10:00 Test Item Value Reference Range Interpretation Comments POC-GLUCOSE METER 89 mg/dL 70-110 TESTED AT [facility] 6720 (BEAKER) (test code = [place] [address] 1538) BASIC METABOLIC [id number] 06:29:00 Test Item Value Reference Range Interpretation [...] S NOT APPLICABLE FOR DIALYSIS PATIEN TS. [id number] 06:28:00 Test Item Value Reference Range Interpretation Comments MAGNESIUM (BEAKER) (test code = 1.8 mg/dL 1.6-2.6 627) [id number] 06:14:00 Test Item Value Reference Range Interpretation Comments PARTIAL THROMBOPLASTIN TIME 64.7 seconds 22.5-36.0 H (BEAKER) (test code = 760) CBC W/PLT COUNT & AUTO [id number] 05:58:00 Test Item Value Reference Range Interpretation [...] PERCENT (BEAKER) (test code = 2801) POCT-GLUCOSE [id number] 21:14:00 Test Item Value Reference Range Interpretation Comments POC-GLUCOSE METER 135 mg/dL 70-110 H TESTED AT [place] [address] ([facility]) (test code = [facility] 1538) [address] [id number] 19:36:00 Test Item Value Reference Range Interpretation Comments PARTIAL THROMBOPLASTIN TIME 88.6 seconds 22.5-36.0 H ([facility]) (test code = 760) POCT-GLUCOSE [id number] 18:27:00 Test Item Value Reference Range Interpretation Comments POC-GLUCOSE METER 88 mg/dL 70-110 TESTED AT [place] [address] ([facility]) (test code = [facility] [address] 1538) POCT-GLUCOSE [id number] 12:05:00 Test Item Value Reference Range Interpretation Comments POC-GLUCOSE METER 92 mg/dL 70-110 TESTED AT [place] [address] ([facility]) (test code = [facility] [address] 1538) [id number] 11:46:00 Test Item Value Reference Range Interpretation Comments PARTIAL THROMBOPLASTIN TIME 74.3 seconds 22.5-36.0 H ([facility]) (test code = 760) POCT-GLUCOSE [id number] 10:36:00 Test Item Value Reference Range Interpretation Comments POC-GLUCOSE METER 101 mg/dL 70-110 TESTED AT [place] [address] ([facility]) (test code = [facility] 1538) [address] POCT-GLUCOSE [id number] 07:10:00 Test Item Value Reference Range Interpretation Comments POC-GLUCOSE METER 92 mg/dL 70-110 TESTED AT [facility] 6720 (BEAKER) (test code = FOSTER Paul [facility] [address] 1538) PROTHROMBIN [id number] 01:41:00 Test Item Value Reference Range Interpretation Comments PROTIME (BEAKER) (test code = 22.8 seconds 11.7-14.7 H 759) INR (BEAKER) (test code = 370) 2.0 <=5.9 RECOMMENDED COUMADIN/WARFARIN INR THERAPY RANGESSTANDARD DOSE: 2.0 - 3.0 Includes: PROPHYLAXIS forvenous thrombosis, systemic embolization; TREATMENT for venous thrombosis and/or pulmonary embolus.HIGH RISK: Target INR is 2.5-3.5 for patients with mechanical heart valves.While on warfarin.[id number] 01:41:00 Test Item Value Reference Range Interpretation Comments PARTIAL THROMBOPLASTIN TIME 52.3 seconds 22.5-36.0 H (BEAKER) (test code = 760) While on warfarin.BASIC METABOLIC [id number] 01:37:00 Test Item Value Reference Range Interpretation [...] S NOT APPLICABLE FOR DIALYSIS PATIEN TS. [id number] 01:32:00 Test Item Value Reference Range Interpretation Comments MAGNESIUM (BEAKER) (test code = 1.8 mg/dL 1.6-2.6 627) CBC W/PLT COUNT & AUTO [id number] 01:18:00 Test Item Value Reference Range Interpretation [...] EOSINOPHILS ABSOLUTE COUNT 0.16 K/ L 0.04-0.54 ([facility]) (test code = 416) BASOPHILS ABSOLUTE COUNT (AKER) 0.05 K/ L 0.01-0.08 (test code = 417) IMMATURE GRANULOCYTES-RELATIVE 1 % 0-1 PERCENT ([facility]) (test code = 2801) [id number] 23:23:00 Test Item Value Reference Range Interpretation Comments PARTIAL THROMBOPLASTIN TIME 125.2 seconds 22.5-36.0 H ([facility]) (test code = 760) POCT-GLUCOSE [id number] 21:19:00 Test Item Value Reference Range Interpretation Comments POC-GLUCOSE METER 165 mg/dL 70-110 H TESTED AT [place] [address] ([facility]) (test code = [facility] 1538) [address] POCT-GLUCOSE [id number] 18:34:00 Test Item Value Reference Range Interpretation Comments POC-GLUCOSE METER 92 mg/dL 70-110 TESTED AT [place] [address] ([facility]) (test code = [facility] [address] 1538) [id number] 17:17:00 Test Item Value Reference Range Interpretation Comments PARTIAL THROMBOPLASTIN TIME 75.2 seconds 22.5-36.0 H ([facility]) (test code = 760) POCT-GLUCOSE [id number] 12:48:00 Test Item Value Reference Range Interpretation Comments POC-GLUCOSE METER 105 mg/dL 70-110 TESTED AT [place] [address] ([facility]) (test code = [facility] 1538) [address] RAD, CHEST, 1 VIEW, NON [id number] 11:00:00Reason for exam:->eval right effusionShould this be performed at the bedside?->YesFINAL REPORT Comparison: 08/15/2018 TECHNIQUE: Single view of the chest FINDINGS: Small to moderate right pleural effusion is stable. Small left pleural effusion may be slightly increased. Vascular congestion seen. No other significant change. Signed: Kyle Rome MDReport Verified Date/Time: 08/18/2018 11:00:36 Reading Location: [facility] Radiology Reading Room Electronicallysigned by: KYLE ROME M.D. on 08/18/2018 11:00 [id number] 09:48:00 Test Item Value Reference Range Interpretation Comments PARTIAL THROMBOPLASTIN TIME 48.8 seconds 22.5-36.0 H (BEAKER) (test code = 760) POCT-GLUCOSE [id number] 07:37:00 Test Item Value Reference Range Interpretation Comments POC-GLUCOSE METER 96 mg/dL 70-110 TESTED AT [facility] 6720 (BEAKER) (test code = [place] [address] 1538) BASIC METABOLIC [id number] 02:24:00 Test Item Value Reference Range Interpretation [...] S NOT APPLICABLE FOR DIALYSIS PATIEN TS. [id number] 02:22:00 Test Item Value Reference Range Interpretation Comments MAGNESIUM (BEAKER) (test code = 1.7 mg/dL 1.6-2.6 627) [id number] 02:15:00 Test Item Value Reference Range Interpretation Comments PARTIAL THROMBOPLASTIN TIME 98.9 seconds 22.5-36.0 H (BEAKER) (test code = 760) PROTHROMBIN [id number] 02:13:00 Test Item Value Reference Range Interpretation [...] PERCENT (BEAKER) (test code = 2801) POCT-GLUCOSE [id number] 21:51:00 Test Item Value Reference Range Interpretation Comments POC-GLUCOSE METER 98 mg/dL 70-110 TESTED AT [place] [address] ([facility]) (test code = [facility] [address] 1538) [id number] 18:51:00 Test Item Value Reference Range Interpretation Comments PARTIAL THROMBOPLASTIN TIME 56.1 seconds 22.5-36.0 H (BEAKER) (test code = 760) [id number] 17:06:00 Test Item Value Reference Range Interpretation Comments PARTIAL THROMBOPLASTIN TIME 121.9 seconds 22.5-36.0 H (BEAKER) (test code = 760) POCT-GLUCOSE [id number] 16:46:00 Test Item Value Reference Range Interpretation Comments POC-GLUCOSE METER 135 mg/dL 70-110 H TESTED AT [place] [address] ([facility]) (test code = [facility] 1538) [address] POCT-GLUCOSE [id number] 13:28:00 Test Item Value Reference Range Interpretation Comments POC-GLUCOSE METER 96 mg/dL 70-110 TESTED AT [place] [address] ([facility]) (test code = [facility] [address] 1538) [id number] 09:15:00 Test Item Value Reference Range Interpretation Comments PARTIAL THROMBOPLASTIN TIME 58.1 seconds 22.5-36.0 H (BEAKER) (test code = 760) BASIC METABOLIC [id number] 07:31:00 Test Item Value Reference Range Interpretation [...] S NOT APPLICABLE FOR DIALYSIS PATIEN TS. [id number] 07:19:00 Test Item Value Reference Range Interpretation Comments PHOSPHORUS (BEAKER) (test code = 3.7 mg/dL 2.3-4.7 604) [id number] 07:19:00 Test Item Value Reference Range Interpretation Comments MAGNESIUM (BEAKER) (test code = 1.7 mg/dL 1.6-2.6 627) [id number] 07:07:00 Test Item Value Reference Range Interpretation Comments PARTIAL THROMBOPLASTIN TIME 124.4 seconds 22.5-36.0 H (BEAKER) (test code = 760) PROTHROMBIN [id number] 07:02:00 Test Item Value Reference Range Interpretation [...] (test code = 414) MONOCYTES ABSOLUTE COUNT (AKER) 0.88 K/ L 0.30-0.82 H (test code = 415) EOSINOPHILS ABSOLUTE COUNT 0.13 K/ L 0.04-0.54 (BEAKER) (test code = 416) BASOPHILS ABSOLUTE COUNT (AKER) 0.04 K/ L 0.01-0.08 (test code = 417) IMMATURE GRANULOCYTES-RELATIVE 1 % 0-1 PERCENT ([facility]) (test code = 2801) [id number] 23:01:00 Test Item Value Reference Range Interpretation Comments PARTIAL THROMBOPLASTIN TIME 46.5 seconds 22.5-36.0 H ([facility]) (test code = 760) POCT-GLUCOSE [id number] 22:45:00 Test Item Value Reference Range Interpretation Comments POC-GLUCOSE METER 144 mg/dL 70-110 H TESTED AT [place] [address] ([facility]) (test code = [facility] 1538) [address] [id number] 15:02:00 Test Item Value Reference Range Interpretation Comments PARTIAL THROMBOPLASTIN TIME 56.1 seconds 22.5-36.0 H ([facility]) (test code = 760) POCT-GLUCOSE [id number] 14:39:00 Test Item Value Reference Range Interpretation Comments POC-GLUCOSE METER 189 mg/dL 70-110 H TESTED AT [place] [address] ([facility]) (test code = [facility] 1538) [address] HIV-1 PCR, [id number] 13:58:00 Test Item Value Reference Range Interpretation Comments HIV-1 NUMERIC RESULT ([facility]) (test 170 Cp/mL <20 H code = 2704) This test uses a Real-Time Polymerase Chain Reaction (RT-PCR) methodology to detect a highly conserved region of the HIV-1 gag gene and was performed using the ERICH AmpliPrep/ERICH TaqMan HIV-1 test kit version 2.0 ([employer]Reportable range for this assay is 20 - 10,000,000 copies per mL (1.3 - 7.0 Log copies/mL).[id number] 12:54:00 Test Item Value Reference Range Interpretation Comments PARTIAL THROMBOPLASTIN TIME 143.6 seconds 22.5-36.0 H ([facility]) (test code = 760) [id number] 10:00:00Medical Cytology Report Case: [id number] Authorizing Provider: Alison Solano MD Collected: 08/13/2018 1803 Ordering Location: [address] Received: 08/14/2018 0923 Service Pathologist: Yamil Hamm MD Specimen: Pleural, Right RIGHT PLEURAL FLUID (CYTOSPINS AND CELL BLOCK): - NO MALIGNANT CELLS IDENTIFIED (SEE COMMENT) Signing Pathologist Direct Phone Line: [phone] signed by Yamil Hamm MD on 08/16/2018 [...] thoracentesis may be considered when fluid reaccumulates. 61231, 37656, 14632, 29189 x 2Left pleural effusion, history of AIDS, Kaposi's sarcoma, hepatitis C.RIGHT PLEURAL FLUID 300 mls bloody; 4 cytospins, cell blockCollected: [id number]: [id number] interpretation of this case included the use of immunohistochemistry or special stains. Please see the immunohistochemistry results in the COMMENT section. Immunohistochemistry technical testing was performed at [facility], Pathology Laboratory where it was developed [...] as qualified toperform high complexity clinical laboratory testing.[facility], Department of Pathology, [address] [place] [address], [place] [address], [facility], [address] [place] [address], [facility], [facility] of [facility], [address] [place] [address], OAXN-GLUCOSE [id number] 08:29:00 Test Item Value Reference Range Interpretation Comments POC-GLUCOSE METER 96 mg/dL 70-110 TESTED AT [facility] 67 (BEAKER) (test code = FOSTER Paul [facility] [address] 1538) BODY FLUID CULTURE + GRAM [id number] 07:54:00 Test Item Value Reference Range Interpretation Comments CULTURE (BEAKER) (test code No growth = 1095) GRAM STAIN RESULT (BEAKER) <1+ WBCs (test code = 1123) GRAM STAIN RESULT (BEAKER) No organisms seen (test code = 14091) BASIC METABOLIC [id number] 06:30:00 Test Item Value Reference Range Interpretation [...] S NOT APPLICABLE FOR DIALYSIS PATIEN TS. [id number] 06:26:00 Test Item Value Reference Range Interpretation Comments MAGNESIUM (BEAKER) (test code = 1.6 mg/dL 1.6-2.6 627) [id number] 05:48:00 Test Item Value Reference Range Interpretation Comments PARTIAL THROMBOPLASTIN TIME 80.3 seconds 22.5-36.0 H (BEAKER) (test code = 760) While on warfarin.PROTHROMBIN TIME/[id number] 05:46:00 Test Item Value Reference Range Interpretation [...] valves.While on warfarin.CBC W/PLT COUNT & AUTO [id number] 05:28:00 Test Item Value Reference Range Interpretation [...] 0-1 PERCENT (BEAKER) (test code = 2801) [id number] 22:09:00 Test Item Value Reference Range Interpretation Comments PARTIAL THROMBOPLASTIN TIME 61.5 seconds 22.5-36.0 H (BEAKER) (test code = 760) RAD, CHEST, 1 VIEW, NON [id number] 20:20:00Reason for exam:->eval right effusionShould this be [...] Anderson Verified Date/Time: 08/15/2018 20:20:24 Reading Location: [facility] Radiology Reading Room POCT-GLUCOSE [id number] 19:05:00 Test Item Value Reference Range Interpretation Comments POC-GLUCOSE METER 87 mg/dL 70-110 TESTED AT [facility] 6720 (BEAKER) (test code = [place] [address] 1538) POCT-GLUCOSE [id number] 13:12:00 Test Item Value Reference Range Interpretation Comments POC-GLUCOSE METER 162 mg/dL 70-110 H TESTED AT [facility] 67 (BEAKER) (test code = [place]OST[place] 1538) [address] [id number] 12:48:00 Test Item Value Reference Range Interpretation Comments PARTIAL THROMBOPLASTIN TIME 89.1 seconds 22.5-36.0 H (BEAKER) (test code = 760) POCT-GLUCOSE [id number] 09:58:00 Test Item Value Reference Range Interpretation Comments POC-GLUCOSE METER 229 mg/dL 70-110 H TESTED AT [place] [address] (BEAKER) (test code = FOSTER Paul [facility] 1538) [address] BASIC METABOLIC [id number] 05:40:00 Test Item Value Reference Range Interpretation [...] PATIEN TS. CBC W/PLT COUNT & AUTO [id number] 05:38:00 Test Item Value Reference Range Interpretation [...] 0-1 PERCENT (BEAKER) (test code = 2801) [id number] 05:28:00 Test Item Value Reference Range Interpretation Comments MAGNESIUM (BEAKER) (test code = 1.8 mg/dL 1.6-2.6 627) [id number] 04:47:00 Test Item Value Reference Range Interpretation Comments PARTIAL THROMBOPLASTIN TIME 60.9 seconds 22.5-36.0 H (BEAKER) (test code = 760) PROTHROMBIN [id number] 04:46:00 Test Item Value Reference Range Interpretation Comments PROTIME (BEAKER) (test code = 17.9 seconds 11.7-14.7 H 759) INR (BEAKER) (test code = 370) 1.5 <=5.9 RECOMMENDED COUMADIN/WARFARIN INR THERAPY RANGESSTANDARD DOSE: 2.0 - 3.0 Includes: PROPHYLAXIS forvenous thrombosis, systemic embolization; TREATMENT for venous thrombosis and/or pulmonary embolus.HIGH RISK: Target INR is 2.5-3.5 for patients with mechanical heart valves.[id number] 20:56:00 Test Item Value Reference Range Interpretation Comments PARTIAL THROMBOPLASTIN TIME 52.1 seconds 22.5-36.0 H (BEAKER) (test code = 760) CT, CHEST, WITHOUT [id number] 19:06:00S/p fall in Nov--> right effusion, tapped [...] right paratracheal mediastinal lymph node. Signed: Louie Tapiaepdamion Verified Date/Time: 08/14/2018 19:06:09 Reading Location: [address] Reading Room APTT 2018-08-14 12:40:00 Test Item Value Reference Range Interpretation Comments PARTIAL THROMBOPLASTIN TIME 48.4 seconds 22.5-36.0 H (BEAKER) (test code = 760) CD4 T CELL [id number] 11:15:00 Test Item Value Reference Range Interpretation [...] 107-698 L (BEAKER) (test code = 3491) [id number] 10:48:00 Test Item Value Reference Range Interpretation Comments PHOSPHORUS (BEAKER) (test code = 5.2 mg/dL 2.3-4.7 H 604) BASIC METABOLIC [id number] 07:13:00 Test Item Value Reference Range Interpretation [...] S NOT APPLICABLE FOR DIALYSIS PATIEN TS. [id number] 07:11:00 Test Item Value Reference Range Interpretation Comments MAGNESIUM (BEAKER) (test code = 1.8 mg/dL 1.6-2.6 627) [id number] 07:00:00 Test Item Value Reference Range Interpretation Comments PARTIAL THROMBOPLASTIN TIME 59.2 seconds 22.5-36.0 H (BEAKER) (test code = 760) PROTHROMBIN [id number] 06:59:00 Test Item Value Reference Range Interpretation [...] 0-1 PERCENT (BEAKER) (test code = 2801) [id number] 00:30:00 Test Item Value Reference Range Interpretation Comments PARTIAL THROMBOPLASTIN TIME 56.7 seconds 22.5-36.0 H (BEAKER) (test code = 760) BODY FLUID CELL COUNT WITH [id number] 19:28:00 Test Item Value Reference Range Interpretation Comments APPEARANCE FLUID (BEAKER) (test Cloudy Clear A code = 510) COLOR FLUID (BEAKER) (test code Red Colorless, Straw A = 511) RBC FLUID (BEAKER) (test code = 65416 /cu mm <=1 H 513) ADJUSTED WBC [...] Tube (test code = 2873) ALBUMIN, BODY [id number] 18:40:00 Test Item Value Reference Range Interpretation Comments ALBUMIN FLUID (BEAKER) (test code = 2.1 gm/dL 501) Reference Range: No Normals Assay performance has not been validated for this type of specimen.LACTATE DEHYDROGENASE (LDH), BODY [id number] 18:40:00 Test Item Value Reference Range Interpretation [...] 125-220 H code = 635) HEPATIC FUNCTION [id number] 18:40:00 Test Item Value Reference Range Interpretation [...] 6-55 347) RAD, CHEST, 1 VIEW, NON [id number] 17:56:00Reason for exam:->post Right thoracentesisShould this be [...] MDReport Verified Date/Time: 08/13/2018 17:56:18 Reading Location: [address] Consult Reading Room U/S, [id number] 16:22:00Reason for exam:->shortness of breath, recurrent right pleural effusionShould this be performed at the bedside?->NoFINAL REPORT Ultrasound guided right thoracentesis, 08/13/2018. Clinical History: Right pleural effusion. Modality: Ultrasound. Sedation: None. 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 Music Leader: None. Estimated Blood Loss: 1cc Specimen: 1600 [...] Musa Verified Date/Time: 08/13/2018 16:22:16 Reading Location: [address] Ultrasound Reading Room [id number] 07:18:00 Test Item Value Reference Range Interpretation Comments MAGNESIUM (BEAKER) (test code = 2.0 mg/dL 1.6-2.6 627) BASIC METABOLIC [id number] 07:18:00 Test Item Value Reference Range Interpretation [...] PATIEN TS. RAD, CHEST, 1 VIEW, NON [id number] 06:25:00Reason for exam:->SOBShould this be performed at [...] Taylor Verified Date/Time: 08/13/2018 06:25:21 Reading Location: [address] Transitional Re ading Room [id number] 05:49:00 Test Item Value Reference Range Interpretation Comments PARTIAL THROMBOPLASTIN TIME 42.0 seconds 22.5-36.0 H (BEAKER) (test code = 760) PROTHROMBIN [id number] 05:48:00 Test Item Value Reference Range Interpretation [...] PERCENT (BEAKER) (test code = 2801) POCT-GLUCOSE [id number] 18:30:00 Test Item Value Reference Range Interpretation Comments POC-GLUCOSE METER 80 mg/dL 70-110 TESTED AT [facility] 6720 ([facility]) (test code = [place] [address] 1538) RAD, CHEST, 1 VIEW, NON [id number] 13:46:00Reason for exam:->evaluate pleural effusionShould this be performed at the bedside?->YesFINAL REPORT Comparison: 08/02/2018 TECHNIQUE: Single view of the chest FINDINGS Bilateral interstitial and airspace opacities are stable. Bilateral pleural effusions seen, right greater than left. No gross new lung parenchymal changes. Post surgical changes in the mediastinum. IMPRESSION: No significant interval change. Signed: Kyle Rome Verified Date/Time: 08/06/2018 13:46:20 Reading Location: [facility] Radiology Reading Room [id number] 09:33:00 Test Item Value Reference Range Interpretation Comments PARTIAL THROMBOPLASTIN TIME 113.6 seconds 22.5-36.0 H (BEAKER) (test code = 760) [id number] 06:48:00 Test Item Value Reference Range Interpretation [...] heart valves.While on warfarin.While on warfarin.BASIC METABOLIC [id number] 06:45:00 Test Item Value Reference Range Interpretation [...] NOT APPLICABLE FOR DIALYSIS PATIEN TS. PROTHROMBIN [id number] 06:43:00 Test Item Value Reference Range Interpretation [...] WBC 0-0 (BEAKER) (test code = 413) [id number] 20:40:00 Test Item Value Reference Range Interpretation Comments PARTIAL THROMBOPLASTIN TIME 81.7 seconds 22.5-36.0 H (BEAKER) (test code = 760) [id number] 14:05:00 Test Item Value Reference Range Interpretation Comments PARTIAL THROMBOPLASTIN TIME 91.5 seconds 22.5-36.0 H (BEAKER) (test code = 760) BASIC METABOLIC [id number] 07:02:00 Test Item Value Reference Range Interpretation [...] S NOT APPLICABLE FOR DIALYSIS PATIEN TS. [id number] 06:47:00 Test Item Value Reference Range Interpretation [...] valves.Ok to add onOk to add onPROTHROMBIN TIME/[id number] 06:46:00 Test Item Value Reference Range Interpretation [...] 0-1 PERCENT (BEAKER) (test code = 2801) [id number] 16:22:00 Test Item Value Reference Range Interpretation Comments PARTIAL THROMBOPLASTIN TIME 76.1 seconds 22.5-36.0 H (BEAKER) (test code = 760) BODY FLUID CULTURE + GRAM [id number] 09:10:00 Test Item Value Reference Range Interpretation Comments CULTURE (BEAKER) (test code No growth = 1095) GRAM STAIN RESULT (BEAKER) <1+ WBCs (test code = 1123) GRAM STAIN RESULT (BEAKER) No organisms seen (test code = 20608) CBC W/PLT COUNT & AUTO [id number] 07:23:00 Test Item Value Reference Range Interpretation [...] (BEAKER) (test code = 413) BASIC METABOLIC [id number] 07:05:00 Test Item Value Reference Range Interpretation [...] S NOT APPLICABLE FOR DIALYSIS PATIEN TS. [id number] 06:53:00 Test Item Value Reference Range Interpretation [...] heart valves.Ok to add onOk to add [id number] 06:53:00 Test Item Value Reference Range Interpretation Comments PARTIAL THROMBOPLASTIN TIME 70.3 seconds 22.5-36.0 H (BEAKER) (test code = 760) PROTHROMBIN [id number] 06:52:00 Test Item Value Reference Range Interpretation Comments PROTIME (BEAKER) (test code = 17.5 seconds 11.7-14.7 H 759) INR (BEAKER) (test code = 370) 1.4 <=5.9 RECOMMENDED COUMADIN/WARFARIN INR THERAPY RANGESSTANDARD DOSE: 2.0 - 3.0 Includes: PROPHYLAXIS forvenous thrombosis, systemic embolization; TREATMENT for venous thrombosis and/or pulmonary embolus.HIGH RISK: Target INR is 2.5-3.5 for patients with mechanical heart valves.PROTHROMBIN [id number] 06:51:00 Test Item Value Reference Range Interpretation Comments PROTIME (BEAKER) (test code = 17.7 seconds 11.7-14.7 H 759) INR (BEAKER) (test code = 370) 1.5 <=5.9 RECOMMENDED COUMADIN/WARFARIN INR THERAPY RANGESSTANDARD DOSE: 2.0 - 3.0 Includes: PROPHYLAXIS forvenous thrombosis, systemic embolization; TREATMENT for venous thrombosis and/or pulmonary embolus.HIGH RISK: Target INR is 2.5-3.5 for patients with mechanical heart valves.While on warfarin.[id number] 22:47:00 Test Item Value Reference Range Interpretation Comments PARTIAL THROMBOPLASTIN TIME 73.6 seconds 22.5-36.0 H (BEAKER) (test code = 760) [id number] 13:08:00 Test Item Value Reference Range Interpretation Comments PARTIAL THROMBOPLASTIN TIME 49.2 seconds 22.5-36.0 H (BEAKER) (test code = 760) BASIC METABOLIC [id number] 06:56:00 Test Item Value Reference Range Interpretation [...] S NOT APPLICABLE FOR DIALYSIS PATIEN TS. [id number] 06:56:00 Test Item Value Reference Range Interpretation Comments PARTIAL THROMBOPLASTIN TIME 67.5 seconds 22.5-36.0 H (BEAKER) (test code = 760) [id number] 06:45:00 Test Item Value Reference Range Interpretation [...] valves.Ok to add onOk to add onPROTHROMBIN TIME/[id number] 06:44:00 Test Item Value Reference Range Interpretation [...] /100 WBC 0-0 (test code = 413) [id number] 02:18:00 Test Item Value Reference Range Interpretation Comments PARTIAL THROMBOPLASTIN TIME 67.1 seconds 22.5-36.0 H (BEAKER) (test code = 760) [id number] 18:56:00 Test Item Value Reference Range Interpretation Comments PARTIAL THROMBOPLASTIN TIME 72.5 seconds 22.5-36.0 H (BEAKER) (test code = 760) POCT-GLUCOSE [id number] 13:08:00 Test Item Value Reference Range Interpretation Comments POC-GLUCOSE METER 121 mg/dL 70-110 H TESTED AT [facility] 6720 (BEAKER) (test code = [place] 1538) [address] [id number] 12:07:00 Test Item Value Reference Range Interpretation Comments PARTIAL THROMBOPLASTIN TIME 50.7 seconds 22.5-36.0 H (BEAKER) (test code = 760) Ok to add onPROTHROMBIN TIME/[id number] 12:05:00 Test Item Value Reference Range Interpretation [...] = 413) RAD, CHEST, 1 VIEW, NON [id number] 11:24:00Reason for exam:->pleural effusionShould this be performed at the bedside?->YesFINAL REPORT AP chest HISTORY: Pleural effusion COMPARISON: 08/01/2018 IMPRESS ION:Intact skeleton. Cardiomegaly. Moderate interstitial edema. Moderate right and small left effusions. No pneumothorax. Signed: Mandy Chairez MDReport Verified Date/Time: 08/02/2018 11:24:33 Reading Location: [address] Ortho Consult Reading Room BASIC METABOLIC [id number] 02:55:00 Test Item Value Reference Range Interpretation [...] S NOT APPLICABLE FOR DIALYSIS PATIEN TED. [id number] 02:39:00 Test Item Value Reference Range Interpretation Comments PARTIAL THROMBOPLASTIN TIME 51.6 seconds 22.5-36.0 H (BEAKER) (test code = 760) CBC W/PLT COUNT & AUTO [id number] 02:30:00 Test Item Value Reference Range Interpretation [...] = 2801) BODY FLUID CELL COUNT WITH [id number] 21:13:00 Test Item Value Reference Range Interpretation Comments APPEARANCE FLUID (BEAKER) (test Bloody Clear A code = 510) COLOR FLUID (BEAKER) (test code Sunil Colorless, Straw A = 511) RBC FLUID (BEAKER) (test code = 81741 /cu mm <=1 H 513) ADJUSTED WBC [...] Tube (test code = 2873) ALBUMIN, BODY [id number] 20:00:00 Test Item Value Reference Range Interpretation Comments ALBUMIN FLUID (BEAKER) (test code = 2.1 gm/dL 501) Reference Range: No Normals Assay performance has not been validated for this type of specimen.LACTATE DEHYDROGENASE (LDH), BODY [id number] 20:00:00 Test Item Value Reference Range Interpretation [...] of specimen.RAD, CHEST, PA OR AP, 1 [id number] 17:08:00Ultrasound Room 1Reason for exam:->s/p Right sided [...] MDReport Verified Date/Time: 08/01/2018 17:08:13 Reading Location: [facility] Radiology Reading Room U/S, [id number] 17:03:00 Laterality?->RightReason for exam:->large pleural effusionFINAL REPORT HISTORY: Right pleural effusion Following informed written consent, the patient's right posterior chest wall was prepped and draped in the usual sterile manner. 2% lidocaine was given locally for anesthesia. No conscious sedation was administered. Vital signs were monitored and remained stable. Using ultrasound guidance and a 5 [place] angiocatheter, access was gain ed to the [...] Seymour Verified Date/Time: 08/01/2018 17:03:15 Reading Location: [address] Ultrasound Reading Room RAD, CHEST, 1 VIEW, NON [id number] 12:40:00Reason for exam:->pleural effusion; shortness of breathShould [...] MDReport Verified Date/Time: 08/01/2018 12:40:42 Reading Location: [facility] Radiology Reading Room APTT 2018-08-01 11:33:00 Test Item Value Reference Range Interpretation Comments PARTIAL THROMBOPLASTIN TIME 118.1 seconds 22.5-36.0 H (BEAKER) (test code = 760) BASIC METABOLIC [id number] 02:07:00 Test Item Value Reference Range Interpretation [...] S NOT APPLICABLE FOR DIALYSIS PATIEN TS. [id number] 01:55:00 Test Item Value Reference Range Interpretation [...] is 2.5-3.5 for patients with mechanical heart valves.[id number] 01:55:00 Test Item Value Reference Range Interpretation Comments PARTIAL THROMBOPLASTIN TIME 96.8 seconds 22.5-36.0 H (BEAKER) (test code = 760) CBC W/PLT COUNT & AUTO [id number] 01:38:00 Test Item Value Reference Range Interpretation [...] 0-1 PERCENT (BEAKER) (test code = 2801) [id number] 18:58:00 Test Item Value Reference Range Interpretation Comments PARTIAL THROMBOPLASTIN TIME 61.7 seconds 22.5-36.0 H (BEAKER) (test code = 760) [id number] 09:22:00 Test Item Value Reference Range Interpretation Comments PARTIAL THROMBOPLASTIN TIME 61.5 seconds 22.5-36.0 H (BEAKER) (test code = 760) BASIC METABOLIC [id number] 02:14:00 Test Item Value Reference Range Interpretation [...] S NOT APPLICABLE FOR DIALYSIS PATIEN TS. [id number] 01:43:00 Test Item Value Reference Range Interpretation [...] is 2.5-3.5 for patients with mechanical heart valves.[id number] 01:43:00 Test Item Value Reference Range Interpretation Comments PARTIAL THROMBOPLASTIN TIME 62.7 seconds 22.5-36.0 H (BEAKER) (test code = 760) CBC W/PLT COUNT & AUTO [id number] 01:32:00 Test Item Value Reference Range Interpretation [...] 0-1 PERCENT (BEAKER) (test code = 2801) [id number] 18:38:00 Test Item Value Reference Range Interpretation Comments PARTIAL THROMBOPLASTIN TIME 38.9 seconds 22.5-36.0 H (BEAKER) (test code = 760) Prior to initiating heparinPLATELET [id number] 18:17:00 Test Item Value Reference Range Interpretation Comments PLATELET COUNT (BEAKER) (test 115 K/CU MM 150-450 L code = 756) RAD, CHEST, 2 [id number] 18:05:00Reason for exam:->sob and pleural effusionFINAL REPORT [...] Bonny [place] Verified Date/Time: 07/30/2018 18:05:46Reading Location: [facility] C0[facility] Consult Reading Room C METABOLIC [id number] 05:26:00 Test Item Value Reference Range Interpretation [...] S NOT APPLICABLE FOR DIALYSIS PATIEN TS. [id number] 05:25:00 Test Item Value Reference Range Interpretation [...] 2.5-3.5 for patients with mechanical heart valves.PROTHROMBIN TIME/[id number] 05:24:00 Test Item Value Reference Range Interpretation [...] (test code = 2801) HEPATITIS B SURFACE [id number] 12:09:00 Test Item Value Reference Range Interpretation Comments HEPATITIS B SURFACE ANTIGEN (2) Nonreactive Nonreactive (BEAKER) (test code = 2585) POCT-GLUCOSE [id number] 07:50:00 Test Item Value Reference Range Interpretation Comments POC-GLUCOSE METER 93 mg/dL 70-110 TESTED AT [facility] 6720 ([facility]) (test code = [place] [facility] [address] 1538) [id number] 04:59:00 Test Item Value Reference Range Interpretation [...] for patients with mechanical heart valves.BASIC METABOLIC [id number] 04:59:00 Test Item Value Reference Range Interpretation [...] PATIEN TS. CBC W/PLT COUNT & AUTO [id number] 04:51:00 Test Item Value Reference Range Interpretation [...] (test code = 2801) AFB CULTURE + [id number] 16:13:00 Test Item Value Reference Range Interpretation Comments CULTURE (BEAKER) (test No acid-fast bacilli code = 1095) isolated in 42 days AFB SMEAR (BEAKER) No acid fast bacilli (test code = 994) seen AFB CULTURE + [id number] 16:13:00 Test Item Value Reference Range Interpretation Comments CULTURE (BEAKER) (test No acid-fast bacilli code = 1095) isolated in 42 days AFB SMEAR (BEAKER) No acid fast bacilli (test code = 994) seen FUNGUS CULTURE + [id number] 07:13:00 Test Item Value Reference Range Interpretation Comments CULTURE (BEAKER) (test No fungus isolated in code = 1095) 28 days FUNGUS SMEAR (BEAKER) No fungi seen (test code = 1406) FUNGUS CULTURE + [id number] 07:13:00 Test Item Value Reference Range Interpretation Comments CULTURE (BEAKER) (test No fungus isolated in code = 1095) 28 days FUNGUS SMEAR (BEAKER) No fungi seen (test code = 1406) TISSUE [id number] 19:17:00Surgical Pathology Report Case: [id number] Authorizing Provider: Juliana Martinez MD Collected: 05/23/2018824 Ordering Location: [facility] PERIOPERATIVE Received: 05/23/2018 0923 SERVICES Pathologist: Brigida Parks MD Specimen: SoftTissue, Other, LEFT GROIN - TISSUE BIOPSY SKIN AND SOFT TISSUE,GROIN,LEFT, BIOPSY: - ABSCESSES, GRANULOMAS AND CHRONIC INFLAMMATION - NEGATIVE FOR DYSPLASIA OR MALIGNANCY - AFB AND GMS STAINS ARE NEGATIVE (SEE COMMENT) Signing Pathologist Direct Phone Line: [phone] signed by Brigida Parks MD on 06/02/2018 at 7:17 PMCorrelation with culture studies is recommended.[id number] abscess groinLeft groin tissue biopsyReceived fresh labeled "soft tissue, other", description "left groin tissue biopsy" are two dark-porter, wrinkled,hair- bearing strips of skin measuring 1.5 and 2.6 cm in length, 0.3 cm in diameter and excised to a depth of 0.3 cm.Sectioning reveals no discrete masses.The specimen is entirely submitted in cassettesA1. DB/ewPOCT-GLUCOSE [id number] 08:51:00 Test Item Value Reference Range Interpretation Comments POC-GLUCOSE METER 101 mg/dL 70-110 TESTED AT [place] [address] (BEAKER) (test code = [place] 1538) [address] CBC W/PLT COUNT & AUTO [id number] 06:01:00 Test Item Value Reference Range Interpretation Comments WHITE BLOOD CELL COUNT (BEAKER) 7.1 K/ L 3.5-10.5 (test code = 775) RED BLOOD CELL COUNT (BEAKER) 3.50 M/ L 4.63-6.08 L (test code = 761) HEMOGLOBIN (BEAKER) (test code = 10.7 GM/DL 13.7-17.5 L 410) HEMATOCRIT (BEAKER) (test code = 33.4 % 40.1-51.0 L 411) MEAN CORPUSCULAR VOLUME (BEAKER) 95.4 fL 79.0-92.2 H (test code = [...] PERCENT (BEAKER) (test code = 2801) PROTHROMBIN [id number] 05:51:00 Test Item Value Reference Range Interpretation Comments PROTIME (BEAKER) (test code = 25.9 seconds 11.7-14.7 H 759) INR (BEAKER) (test code = 370) 2.4 <=5.9 RECOMMENDED COUMADIN/WARFARIN INR THERAPY RANGESSTANDARD DOSE: 2.0 - 3.0 Includes: PROPHYLAXIS forvenous thrombosis, systemic embolization; TREATMENT for venous thrombosis and/or pulmonary embolus.HIGH RISK: Target INR is 2.5-3.5 for patients with mechanical heart valves.BASIC METABOLIC [id number] 05:46:00 Test Item Value Reference Range Interpretation [...] NOT APPLICABLE FOR DIALYSIS PATIEN TS. POCT-GLUCOSE [id number] 20:34:00 Test Item Value Reference Range Interpretation Comments POC-GLUCOSE METER 261 mg/dL 70-110 H TESTED AT [facility] 6479 (BEAKER) (test code = [place] 2897) [address] POCT-GLUCOSE [id number] 18:12:00 Test Item Value Reference Range Interpretation Comments POC-GLUCOSE METER 139 mg/dL 70-110 H TESTED AT [place] [address] (BEAKER) (test code = [place] 1538) [address] POCT-GLUCOSE [id number] 11:51:00 Test Item Value Reference Range Interpretation Comments POC-GLUCOSE METER 147 mg/dL 70-110 H TESTED AT [place] [address] (BEAKER) (test code = [place] 1538) [address] POCT-GLUCOSE [id number] 08:42:00 Test Item Value Reference Range Interpretation Comments POC-GLUCOSE METER 104 mg/dL 70-110 TESTED AT [place] [address] (BEAKER) (test code = [place] 1538) [address] CBC W/PLT COUNT & AUTO [id number] 06:56:00 Test Item Value Reference Range Interpretation [...] (BEAKER) (test code = 2801) BASIC METABOLIC [id number] 06:49:00 Test Item Value Reference Range Interpretation [...] NOT APPLICABLE FOR DIALYSIS PATIEN TS. PROTHROMBIN [id number] 06:46:00 Test Item Value Reference Range Interpretation Comments PROTIME (BEAKER) (test code = 26.9 seconds 11.7-14.7 H 759) INR (BEAKER) (test code = 370) 2.5 <=5.9 RECOMMENDED COUMADIN/WARFARIN INR THERAPY RANGESSTANDARD DOSE: 2.0 - 3.0 Includes: PROPHYLAXIS forvenous thrombosis, systemic embolization; TREATMENT for venous thrombosis and/or pulmonary embolus.HIGH RISK: Target INR is 2.5-3.5 for patients with mechanical heart valves.ANAEROBIC [id number] 00:38:00 Test Item Value Reference Range Interpretation Comments CULTURE ([facility]) (test No anaerobes isolated code = 1095) ANAEROBIC [id number] 00:38:00 Test Item Value Reference Range Interpretation Comments CULTURE ([facility]) (test No anaerobes isolated code = 1095) POCT-GLUCOSE [id number] 20:43:00 Test Item Value Reference Range Interpretation Comments POC-GLUCOSE METER 124 mg/dL 70-110 H TESTED AT [place] [address] ([facility]) (test code = [place] [facility] 1538) [address] POCT-GLUCOSE [id number] 17:17:00 Test Item Value Reference Range Interpretation Comments POC-GLUCOSE METER 190 mg/dL 70-110 H TESTED AT [place] [address] ([facility]) (test code = [place] [facility] 1538) [address] POCT-GLUCOSE [id number] 11:54:00 Test Item Value Reference Range Interpretation Comments POC-GLUCOSE METER 195 mg/dL 70-110 H TESTED AT [place] [address] ([facility]) (test code = [place] [facility] 1538) [address] C. DIFFICILE GDH [id number] 11:16:00 Test Item Value Reference Range Interpretation Comments CDT TOXIN (test code Negative Negative = [id number]) CDT GDH ANTIGEN (test Negative Negative No ind ication of code = 3884900299) Clostridi um difficile infection and n o colonization. Discontinue ent kenrick isolation and t herapy. Testing performed by [employer] Rapid Cassette Assay. For GDH, published sensitivity of the assay is 98.7% compared to cytotoxicity testing. For Toxin AB, published sensitivity is 87.8% and specificity 99.4% compared to cytotoxicity testing.Verification of kit performance was done by the [facility] Microbiology Lab prior to clinical use.SURGICALLY OBTAINED CULTURE + GRAM [id number] 09:22:00 Test Item Value Reference Interpretation Comments [...] No organisms seen (BEAKER) (test code = 096115) SURGICALLY OBTAINED CULTURE + GRAM [id number] 09:20:00 Test Item Value Reference Range Interpretation Comments CULTURE (BEAKER) (test code No growth = 1095) GRAM STAIN RESULT (BEAKER) 4+ WBCs (test code = 1123) GRAM STAIN RESULT (BEAKER) No organisms seen (test code = 26460) POCT-GLUCOSE [id number] 08:21:00 Test Item Value Reference Range Interpretation Comments POC-GLUCOSE METER 101 mg/dL 70-110 TESTED AT [facility] 6720 (BEAKER) (test code = [place] 1538) [address] BASIC METABOLIC [id number] 07:57:00 Test Item Value Reference Range Interpretation [...] NOT APPLICABLE FOR DIALYSIS PATIEN TS. PROTHROMBIN [id number] 06:36:00 Test Item Value Reference Range Interpretation [...] PERCENT (BEAKER) (test code = 2801) POCT-GLUCOSE [id number] 21:40:00 Test Item Value Reference Range Interpretation Comments POC-GLUCOSE METER 176 mg/dL 70-110 H TESTED AT [place] [address] ([facility]) (test code = [facility] 1538) [address] POCT-GLUCOSE [id number] 16:07:00 Test Item Value Reference Range Interpretation Comments POC-GLUCOSE METER 120 mg/dL 70-110 H TESTED AT [place] [address] ([facility]) (test code = [facility] 1538) [address] POCT-GLUCOSE [id number] 08:31:00 Test Item Value Reference Range Interpretation Comments POC-GLUCOSE METER 119 mg/dL 70-110 H TESTED AT [place] [address] ([facility]) (test code = [facility] 1538) [address] BASIC METABOLIC [id number] 08:19:00 Test Item Value Reference Range Interpretation [...] APPLICABLE FOR DIALYSIS PATIEN TS. VANCOMYCIN LEVEL, [id number] 08:16:00 Test Item Value Reference Range Interpretation Comments VANCOMYCIN RANDOM (BEAKER) (test 17.6 ug/mL code = 523) Reference Range: No NormalsPROTHROMBIN [id number] 07:21:00 Test Item Value Reference Range Interpretation [...] 0-1 H PERCENT (BEAKER) (test code = 2802) BLOOD [id number] 06:00:00 Test Item Value Reference Range Interpretation Comments CULTURE (BEAKER) (test No growth in 5 days code = 1095) BLOOD [id number] 00:00:00 Test Item Value Reference Range Interpretation Comments CULTURE (BEAKER) (test No growth in 5 days code = 1095) POCT-GLUCOSE [id number] 22:05:00 Test Item Value Reference Range Interpretation Comments POC-GLUCOSE METER 169 mg/dL 70-110 H TESTED AT [facility] 6720 (BEAKER) (test code = [place] 1538) [address] POCT-GLUCOSE [id number] 18:20:00 Test Item Value Reference Range Interpretation Comments POC-GLUCOSE METER 110 mg/dL 70-110 TESTED AT [facility] 6720 (BEAKER) (test code = [place] 1538) [address] POCT-GLUCOSE [id number] 17:17:00 Test Item Value Reference Range Interpretation Comments POC-GLUCOSE METER 99 mg/dL 70-110 TESTED AT [facility] 6720 (BEAKER) (test code = [facility] H[place]to [facility] [address] 1538) SPIN/CONCENTRATION [id number] 14:49:00 Test Item Value Reference Range Interpretation Comments CONCENTRATION CHARGED (BEAKER) (test Done code = 2657) SPIN/CONCENTRATION [id number] 14:49:00 Test Item Value Reference Range Interpretation Comments CONCENTRATION CHARGED (BEAKER) (test Done code = 2657) POCT-GLUCOSE [id number] 12:13:00 Test Item Value Reference Range Interpretation Comments POC-GLUCOSE METER 188 mg/dL 70-110 H TESTED AT [place] [address] (BEAKER) (test code = [facility] H[place]to [facility] 1538) [address] BASIC METABOLIC [id number] 09:56:00 Test Item Value Reference Range Interpretation [...] NOT APPLICABLE FOR DIALYSIS PATIEN TS. POCT-GLUCOSE [id number] 07:45:00 Test Item Value Reference Range Interpretation Comments POC-GLUCOSE METER 108 mg/dL 70-110 TESTED AT [facility] 6720 (BEAKER) (test code = [place] 1538) [address] CBC W/PLT COUNT & AUTO [id number] 07:00:00 Test Item Value Reference Range Interpretation [...] IMMATURE GRANULOCYTES-RELATIVE 3 % 0-1 H PERCENT ([facility]) (test code = 2801) PROTHROMBIN [id number] 06:47:00 Test Item Value Reference Range Interpretation Comments PROTIME (BEAKER) (test code = 20.7 seconds 11.7-14.7 H 759) INR ([facility]) (test code = 370) 1.8 <=5.9 RECOMMENDED COUMADIN/WARFARIN INR THERAPY RANGESSTANDARD DOSE: 2.0 - 3.0 Includes: PROPHYLAXIS forvenous thrombosis, systemic embolization; TREATMENT for venous thrombosis and/or pulmonary embolus.HIGH RISK: Target INR is 2.5-3.5 for patients with mechanical heart valves.POCT-GLUCOSE [id number] 20:42:00 Test Item Value Reference Range Interpretation Comments POC-GLUCOSE METER 134 mg/dL 70-110 H TESTED AT [place] [address] ([facility]) (test code = [facility] 1538) [address] POCT-GLUCOSE [id number] 13:29:00 Test Item Value Reference Range Interpretation Comments POC-GLUCOSE METER 209 mg/dL 70-110 H TESTED AT [place] [address] ([facility]) (test code = [facility] 1538) [address] POCT-GLUCOSE [id number] 08:53:00 Test Item Value Reference Range Interpretation Comments POC-GLUCOSE METER 103 mg/dL 70-110 TESTED AT [place] [address] ([facility]) (test code = [facility] 1538) [address] BASIC METABOLIC [id number] 07:47:00 Test Item Value Reference Range Interpretation [...] DIALYSIS PATIEN TS. WOUND CULTURE + GRAM [id number] 07:44:00 Test Item Value Reference Range Interpretation Comments CULTURE (BEAKER) (test code No growth = 1095) GRAM STAIN RESULT (BEAKER) No WBCs (test code = 1123) GRAM STAIN RESULT (BEAKER) No organisms seen (test code = 83773) [id number] 07:38:00 Test Item Value Reference Range Interpretation Comments PHOSPHORUS (BEAKER) (test code = 3.2 mg/dL 2.3-4.7 604) CBC W/PLT COUNT & AUTO [id number] 06:35:00 Test Item Value Reference Range Interpretation [...] PERCENT (BEAKER) (test code = 2801) PROTHROMBIN [id number] 06:32:00 Test Item Value Reference Range Interpretation Comments PROTIME (BEAKER) (test code = 23.2 seconds 11.7-14.7 H 759) INR (BEAKER) (test code = 370) 2.1 <=5.9 RECOMMENDED COUMADIN/WARFARIN INR THERAPY RANGESSTANDARD DOSE: 2.0 - 3.0 Includes: PROPHYLAXIS forvenous thrombosis, systemic embolization; TREATMENT for venous thrombosis and/or pulmonary embolus.HIGH RISK: Target INR is 2.5-3.5 for patients with mechanical heart valves.POCT-GLUCOSE [id number] 21:21:00 Test Item Value Reference Range Interpretation Comments POC-GLUCOSE METER 177 mg/dL 70-110 H TESTED AT [facility] 6720 (BEAKER) (test code = [place] 1538) [address] POCT-GLUCOSE [id number] 17:53:00 Test Item Value Reference Range Interpretation Comments POC-GLUCOSE METER 89 mg/dL 70-110 TESTED AT [facility] 67 ([facility]) (test code = [facility] [address] 1538) IRON, TIBC, % SAT. (WITHOUT FERRITIN)[id number] 17:45:00 Test Item Value Reference Range Interpretation Comments IRON (BEAKER) (test code = 547) 63 ug/dL 40-160 TOTAL IRON BINDING CAPACITY 203 ug/dL 250-450 L (BEAKER) (test code = 769) IRON % SATURATION (2) (BEAKER) 31 % 20-55 (test code = 2590) [id number] 16:07:00 Test Item Value Reference Range Interpretation Comments PHOSPHORUS (BEAKER) (test code = 5.4 mg/dL 2.3-4.7 H 604) POCT-GLUCOSE [id number] 12:41:00 Test Item Value Reference Range Interpretation Comments POC-GLUCOSE METER 110 mg/dL 70-110 TESTED AT [place] [address] ([facility]) (test code = [facility] 1538) [address] POCT-GLUCOSE [id number] 07:00:00 Test Item Value Reference Range Interpretation Comments POC-GLUCOSE METER 159 mg/dL 70-110 H TESTED AT [place] [address] ([facility]) (test code = [facility] 1538) [id number] BASIC METABOLIC [id number] 05:19:00 Test Item Value Reference Range Interpretation [...] S NOT APPLICABLE FOR DIALYSIS PATIEN TS. [id number] 05:18:00 Test Item Value Reference Range Interpretation Comments MAGNESIUM (BEAKER) (test code = 1.9 mg/dL 1.6-2.6 627) PROTHROMBIN [id number] 05:03:00 Test Item Value Reference Range Interpretation [...] PERCENT (BEAKER) (test code = 2801) POCT-GLUCOSE [id number] 23:35:00 Test Item Value Reference Range Interpretation Comments POC-GLUCOSE METER 190 mg/dL 70-110 H TESTED AT [facility] 6720 ([facility]) (test code = FOSTER Humberto [facility] 1538) [address] POCT-GLUCOSE [id number] 17:16:00 Test Item Value Reference Range Interpretation Comments POC-GLUCOSE METER 122 mg/dL 70-110 H TESTED AT [facility] 6720 ([facility]) (test code = MARIA GOSMAN Humberto [facility] 1538) [address] U/S, TESTICULAR (SCROTUM)2018-05-21 14:53:00Reason for exam:->testicular swellingFINAL [...] lymphocele is a consideration. Signed: Reagan Carr [facility] Verified Date/Time: 05/21/2018 14:53:00 Reading Location: [facility] [id number] UltrasoundReading Room POCT- GLUCOSE [id number] 11:22:00 Test Item Value Reference Range Interpretation Comments POC-GLUCOSE METER 144 mg/dL 70-110 H TESTED AT [place] [address] ([facility]) (test code = [facility] 1538) [address] POCT-GLUCOSE [id number] 07:05:00 Test Item Value Reference Range Interpretation Comments POC-GLUCOSE METER 171 mg/dL 70-110 H TESTED AT [place] [address] ([facility]) (test code = [facility] 1538) [address] BASIC METABOLIC [id number] 06:19:00 Test Item Value Reference Range Interpretation [...] S NOT APPLICABLE FOR DIALYSIS PATIEN TS. [id number] 06:04:00 Test Item Value Reference Range Interpretation Comments MAGNESIUM (BEAKER) (test code = 1.9 mg/dL 1.6-2.6 627) PROTHROMBIN [id number] 05:31:00 Test Item Value Reference Range Interpretation [...] ABSOLUTE COUNT 7.36 K/ L 1.78-5.38 H (BEAKER) (test code [...] PERCENT (BEAKER) (test code = 2801) POCT-GLUCOSE [id number] 21:29:00 Test Item Value Reference Range Interpretation Comments POC-GLUCOSE METER 156 mg/dL 70-110 H TESTED AT [facility] 6720 (BEAKER) (test code = FOSTER [place] 1538) [address] POCT-GLUCOSE [id number] 18:14:00 Test Item Value Reference Range Interpretation Comments POC-GLUCOSE METER 93 mg/dL 70-110 TESTED AT [facility] 6720 (BEAKER) (test code = [place] [address] 1538) PROTHROMBIN [id number] 13:26:00 Test Item Value Reference Range Interpretation Comments PROTIME (BEAKER) (test code = 42.0 seconds 11.7-14.7 H 759) INR (BEAKER) (test code = 370) 4.4 <=5.9 RECOMMENDED COUMADIN/WARFARIN INR THERAPY RANGESSTANDARD DOSE: 2.0 - 3.0 Includes: PROPHYLAXIS forvenous thrombosis, systemic embolization; TREATMENT for venous thrombosis and/or pulmonary embolus.HIGH RISK: Target INR is 2.5-3.5 for patients with mechanical heart valves.LACTIC ACID, VENOUS, WHOLE [id number] 13:18:00 Test Item Value Reference Range Interpretation Comments LACTATE BLOOD VENOUS (2) (BEAKER) 0.8 mmol/L 0.5-2.2 (test code = 2872) Effective 01/04/2016: Units/Reference Range ChangeNew: 0.5-2.2 mmol/L Previous: 5-20 mg/dLPOCT-GLUCOSE [id number] 12:04:00 Test Item Value Reference Range Interpretation Comments POC-GLUCOSE METER 111 mg/dL 70-110 H TESTED AT [facility] 6720 ([facility]) (test code = FOSTER BRANDON 1538) [address] CD4 T CELL [id number] 12:04:00 Test Item Value Reference Range Interpretation Comments CD4/CD8 RATIO FC (AKER) (test code = 0.76 0.70-3.23 2) HEPATITIS B SURFACE [id number] 11:32:00 Test Item Value Reference Range Interpretation Comments HEPATITIS B SURFACE ANTIGEN (2) Nonreactive Nonreactive (BEAKER) (test code = 2585) VANCOMYCIN LEVEL, [id number] 11:10:00 Test Item Value Reference Range Interpretation Comments VANCOMYCIN RANDOM (BEAKER) (test 20.7 ug/mL code = 523) Reference Range: No NormalsBASIC METABOLIC [id number] 09:19:00 Test Item Value Reference Range Interpretation [...] S NOT APPLICABLE FOR DIALYSIS PATIEN TS. [id number] 09:16:00 Test Item Value Reference Range Interpretation Comments MAGNESIUM (BEAKER) (test code = 2.1 mg/dL 1.6-2.6 627) RAD, CHEST, 1 VIEW, NON [id number] 07:56:00Reason for exam:->pleural effusion seen on outside hospital imagingShould this be performed at the bedside?->YesFINAL REPORT Chest one view compared to February 23 Discussion: Small effusions are similar. Replaced cardiac valve and atrial appendage clip noted. No pneumothorax. Unchanged cardiac pulmonary appearance. Signed: Rhea Colindres Verified Date/Time: 05/20/2018 07:56:50 Reading Location: [facility] Radiology Reading Room POCT-GLUCOSE [id number] 07:32:00 Test Item Value Reference Range Interpretation Comments POC-GLUCOSE METER 105 mg/dL 70-110 TESTED AT [facility] 6720 ([facility]) (test code = FOSTER Paul [facility] 1538) [address] CBC W/PLT COUNT & AUTO [id number] 07:01:00 Test Item Value Reference Range Interpretation [...] (BEAKER) (test code = 2801) VANCOMYCIN LEVEL, [id number] 22:39:00 Test Item Value Reference Range Interpretation Comments VANCOMYCIN RANDOM (BEAKER) (test 22.0 ug/mL code = 523) Reference Range: No NormalsCOMPREHENSIVE METABOLIC [id number] 22:39:00 Test Item Value Reference Range Interpretation [...] S NOT APPLICABLE FOR DIALYSIS PATIEN TS. [id number] 22:38:00 Test Item Value Reference Range Interpretation Comments PHOSPHORUS (BEAKER) (test code = 4.5 mg/dL 2.3-4.7 604) [id number] 22:38:00 Test Item Value Reference Range Interpretation Comments MAGNESIUM (BEAKER) (test code = 2.0 mg/dL 1.6-2.6 627) [id number] 22:29:00 Test Item Value Reference Range Interpretation Comments PARTIAL THROMBOPLASTIN TIME 45.0 seconds 22.5-36.0 H (BEAKER) (test code = 760) PROTHROMBIN [id number] 22:28:00 Test Item Value Reference Range Interpretation Comments PROTIME (JARROD) (test code = 48.1 seconds 11.7-14.7 H 759) INR (JARROD) (test code = 370) 5.2 <=5.9 RECOMMENDED COUMADIN/WARFARIN INR THERAPY RANGESSTANDARD DOSE: 2.0 - 3.0 Includes: PROPHYLAXIS forvenous thrombosis, systemic embolization; TREATMENT for venous thrombosis and/or pulmonary embolus.HIGH RISK: Target INR is 2.5-3.5 for patients with mechanical heart valves.POCT-GLUCOSE [id number] 21:38:00 Test Item Value Reference Range Interpretation Comments POC-GLUCOSE METER 105 mg/dL 70-110 TESTED AT [facility] 6720 (JARROD) (test code = FOSTER [place] 1538) [address] XR Ankle Complete 3+ Views [id number] 22:30:07Patient: CALEB LUGO Date/Time05/12/2018 22:24 CDTReason for [...] Signature): 05/12/2018 10:30 pmXR Chest 1 View [id number] 09:48:17Patient: CALEB LUGO Date/Time05/12/2018 09:30 CDTReason for [...] FSigned (Electronic Signature): 05/12/2018 9:48 amBASIC METABOLIC [id number] 11:15:00 Test Item Value Reference Range Interpretation [...] (BEAKER) (test code = 700) BASIC METABOLIC [id number] 02:55:00 Test Item Value Reference Range Interpretation [...] H (BEAKER) (test code = 700) TROPONIN [id number] 02:30:00 Test Item Value Reference Range Interpretation [...] failure, acidosis, acute neurological disease, and persistent tachyarrhythmia.[id number] 02:21:00 Test Item Value Reference Range Interpretation Comments MAGNESIUM (BEAKER) (test code = 1.8 mg/dL 1.6-2.6 627) CBC W/PLT COUNT & AUTO [id number] 00:24:00 Test Item Value Reference Range Interpretation [...] 0-1 PERCENT (BEAKER) (test code = 2801) [id number] 00:01:00 Test Item Value Reference Range Interpretation Comments PROTIME (BEAKER) (test code = 14.4 seconds 11.7-14.7 759) INR (BEAKER) (test code = 370) 1.1 <=5.9 PARTIAL THROMBOPLASTIN TIME 28.5 seconds 22.5-36.0 ([facility]) (test code = 760) RECOMMENDED COUMADIN/WARFARIN INR THERAPY RANGESSTANDARD DOSE: 2.0 - 3.0 Includes: PROPHYLAXIS forvenous thrombosis, systemic embolization; TREATMENT for venous thrombosis and/or pulmonary embolus.HIGH RISK: Target INR is 2.5-3.5 for patients with mechanical heart valves.RAD, CHEST, 1 VIEW, NON [id number] 23:39:00Reason for exam:->chest painShould this be performed [...] Wan Verified Date/Time: 02/23/2018 23:39:58 Reading Location: [address] Reading Room POCT-GLUCOSE [id number] 19:47:00 Test Item Value Reference Range Interpretation Comments POC-GLUCOSE METER 94 mg/dL 70-110 TESTED AT [place] [address] ([facility]) (test code = FOSTER Humberto [facility] [address] 1538) POCT-GLUCOSE [id number] 17:07:00 Test Item Value Reference Range Interpretation Comments POC-GLUCOSE METER 176 mg/dL 70-110 H TESTED AT [place] [address] ([facility]) (test code = FOSTER Humberto [facility] 1538) [address] POCT-GLUCOSE [id number] 12:31:00 Test Item Value Reference Range Interpretation Comments POC-GLUCOSE METER 84 mg/dL 70-110 TESTED AT [place] [address] ([facility]) (test code = FOSTER Paul [facility] [address] 1538) [id number] 10:40:00 Test Item Value Reference Range Interpretation Comments PARTIAL THROMBOPLASTIN TIME 88.5 seconds 22.5-36.0 H ([facility]) (test code = 760) OCCULT BLOOD, [id number] 09:36:00 Test Item Value Reference Range Interpretation Comments FECAL OCCULT BLOOD ([facility]) (test Negative Negative code = 618) POCT-GLUCOSE [id number] 08:51:00 Test Item Value Reference Range Interpretation Comments POC-GLUCOSE METER 223 mg/dL 70-110 H TESTED AT [place] [address] ([facility]) (test code = FOSTER Paul [facility] 1538) [address] [id number] 04:14:00 Test Item Value Reference Range Interpretation Comments PARTIAL THROMBOPLASTIN TIME 80.3 seconds 22.5-36.0 H ([facility]) (test code = 760) While on warfarin.PROTHROMBIN TIME/[id number] 04:13:00 Test Item Value Reference Range Interpretation Comments PROTIME ([facility]) (test code = 23.8 seconds 11.7-14.7 H 759) INR ([facility]) (test code = 370) 2.1 <=5.9 RECOMMENDED COUMADIN/WARFARIN INR THERAPY RANGESSTANDARD DOSE: 2.0 - 3.0 Includes: PROPHYLAXIS forvenous thrombosis, systemic embolization; TREATMENT for venous thrombosis and/or pulmonary embolus.HIGH RISK: Target INR is 2.5-3.5 for patients with mechanical heart valves.While on warfarin.POCT-GLUCOSE METER 2018-02-02 21:56:00 Test Item Value Reference Range Interpretation Comments POC-GLUCOSE METER 206 mg/dL 70-110 H TESTED AT [place] [address] ([facility]) (test code = FOSTER Paul [facility] 1538) [address] [id number] 19:50:00 Test Item Value Reference Range Interpretation Comments PARTIAL THROMBOPLASTIN TIME 59.7 seconds 22.5-36.0 H ([facility]) (test code = 760) POCT-GLUCOSE [id number] 17:00:00 Test Item Value Reference Range Interpretation Comments POC-GLUCOSE METER 183 mg/dL 70-110 H TESTED AT [place] [address] ([facility]) (test code = FOSTER Paul [place] 1538) [address] [id number] 12:45:00 Test Item Value Reference Range Interpretation Comments PARTIAL THROMBOPLASTIN TIME 89.5 seconds 22.5-36.0 H ([facility]) (test code = 760) CBC W/PLT COUNT & AUTO [id number] 12:04:00 Test Item Value Reference Range Interpretation Comments WHITE BLOOD CELL COUNT (BEAKER) 4.8 K/ L 3.5-10.5 (test code = 775) RED BLOOD CELL COUNT (BEAKER) 2.46 M/ L 4.63-6.08 L (test code = 761) HEMOGLOBIN (BEAKER) (test code = 7.5 GM/DL 13.7-17.5 L 410) HEMATOCRIT (BEAKER) (test code = 24.2 % 40.1-51.0 L 411) MEAN CORPUSCULAR VOLUME (BEAKER) 98.4 fL 79.0-92.2 H (test code = [...] WBC 0-0 (test code = 413) POCT-GLUCOSE [id number] 11:54:00 Test Item Value Reference Range Interpretation Comments POC-GLUCOSE METER 124 mg/dL 70-110 H TESTED AT [place] [address] ([facility]) (test code = FOSTER [place] 1538) [address] POCT-GLUCOSE [id number] 07:48:00 Test Item Value Reference Range Interpretation Comments POC-GLUCOSE METER 178 mg/dL 70-110 H TESTED AT [place] [address] ([facility]) (test code = FOSTER [place] 1538) [address] BASIC METABOLIC [id number] 05:15:00 Test Item Value Reference Range Interpretation [...] S NOT APPLICABLE FOR DIALYSIS PATIEN TS. [id number] 04:51:00 Test Item Value Reference Range Interpretation Comments MAGNESIUM (BEAKER) (test code = 1.8 mg/dL 1.6-2.6 627) [id number] 04:36:00 Test Item Value Reference Range Interpretation Comments PARTIAL THROMBOPLASTIN TIME 91.9 seconds 22.5-36.0 H (BEAKER) (test code = 760) While on warfarin.PROTHROMBIN TIME/[id number] 04:34:00 Test Item Value Reference Range Interpretation [...] METER 126 mg/dL 70-110 H TESTED AT [facility] 6720 ([facility]) (test code = FOSTER Paul [place] 1538) [address] [id number] 21:23:00 Test Item Value Reference Range Interpretation Comments PARTIAL THROMBOPLASTIN TIME 84.1 seconds 22.5-36.0 H ([facility]) (test code = 760) POCT-GLUCOSE [id number] 16:57:00 Test Item Value Reference Range Interpretation Comments POC-GLUCOSE METER 156 mg/dL 70-110 H TESTED AT [place] [address] ([facility]) (test code = FOSTER Paul [place] 1538) [address] [id number] 14:11:00 Test Item Value Reference Range Interpretation Comments PARTIAL THROMBOPLASTIN TIME 96.5 seconds 22.5-36.0 H ([facility]) (test code = 760) POCT-GLUCOSE [id number] 08:24:00 Test Item Value Reference Range Interpretation Comments POC-GLUCOSE METER 169 mg/dL 70-110 H TESTED AT [place] [address] ([facility]) (test code = FOSTER Paul [facility] 1538) [address] POCT-GLUCOSE [id number] 06:49:00 Test Item Value Reference Range Interpretation Comments POC-GLUCOSE METER 172 mg/dL 70-110 H TESTED AT [place] [address] ([facility]) (test code = FOSTER Paul [facility] 1538) [address] [id number] 04:59:00 Test Item Value Reference Range Interpretation Comments PARTIAL THROMBOPLASTIN TIME 64.7 seconds 22.5-36.0 H ([facility]) (test code = 760) While on warfarin.PROTHROMBIN TIME/[id number] 04:57:00 Test Item Value Reference Range Interpretation Comments PROTIME ([facility]) (test code = 17.5 seconds 11.7-14.7 H 759) INR ([facility]) (test code = 370) 1.4 <=5.9 RECOMMENDED COUMADIN/WARFARIN INR THERAPY RANGESSTANDARD DOSE: 2.0 - 3.0 Includes: PROPHYLAXIS forvenous thrombosis, systemic embolization; TREATMENT for venous thrombosis and/or pulmonary embolus.HIGH RISK: Target INR is 2.5-3.5 for patients with mechanical heart valves.While on warfarin.[id number] 21:55:00 Test Item Value Reference Range Interpretation Comments PARTIAL THROMBOPLASTIN TIME 68.8 seconds 22.5-36.0 H ([facility]) (test code = 760) [id number] 13:54:00 Test Item Value Reference Range Interpretation Comments PARTIAL THROMBOPLASTIN TIME 51.7 seconds 22.5-36.0 H (BEAKER) (test code = 760) POCT-GLUCOSE [id number] 11:56:00 Test Item Value Reference Range Interpretation Comments POC-GLUCOSE METER 101 mg/dL 70-110 TESTED AT [facility] 6720 (BEAKER) (test code = FOSTER Paul [place] 1538) [address] POCT-GLUCOSE [id number] 07:58:00 Test Item Value Reference Range Interpretation Comments POC-GLUCOSE METER 111 mg/dL 70-110 H TESTED AT [facility] 6720 (BEAKER) (test code = FOSTER Paul [place] 1538) [address] BASIC METABOLIC [id number] 05:35:00 Test Item Value Reference Range Interpretation [...] S NOT APPLICABLE FOR DIALYSIS PATIEN TS. [id number] 05:34:00 Test Item Value Reference Range Interpretation Comments PHOSPHORUS (BEAKER) (test code = 4.2 mg/dL 2.3-4.7 604) [id number] 05:34:00 Test Item Value Reference Range Interpretation Comments MAGNESIUM (BEAKER) (test code = 1.7 mg/dL 1.6-2.6 627) PROTHROMBIN [id number] 05:24:00 Test Item Value Reference Range Interpretation Comments PROTIME (BEAKER) (test code = 18.8 seconds 11.7-14.7 H 759) INR (BEAKER) (test code = 370) 1.6 <=5.9 RECOMMENDED COUMADIN/WARFARIN INR THERAPY RANGESSTANDARD DOSE: 2.0 - 3.0 Includes: PROPHYLAXIS forvenous thrombosis, systemic embolization; TREATMENT for venous thrombosis and/or pulmonary embolus.HIGH RISK: Target INR is 2.5-3.5 for patients with mechanical heart valves.[id number] 05:05:00 Test Item Value Reference Range Interpretation Comments PARTIAL THROMBOPLASTIN TIME 96.6 seconds 22.5-36.0 H (BEAKER) (test code = 760) CBC W/PLT COUNT & AUTO [id number] 04:54:00 Test Item Value Reference Range Interpretation [...] 0-1 PERCENT (BEAKER) (test code = 2801) OCCULT BLOOD, [id number] 22:44:00 Test Item Value Reference Range Interpretation Comments FECAL OCCULT BLOOD (BEAKER) (test Positive Negative A code = 618) [id number] 21:14:00 Test Item Value Reference Range Interpretation Comments PARTIAL THROMBOPLASTIN TIME 69.1 seconds 22.5-36.0 H (BEAKER) (test code = 760) POCT-GLUCOSE [id number] 20:49:00 Test Item Value Reference Range Interpretation Comments POC-GLUCOSE METER 160 mg/dL 70-110 H TESTED AT [facility] 6720 ([facility]) (test code = [facility] Humberto [facility] 1538) [address] POCT-GLUCOSE [id number] 17:59:00 Test Item Value Reference Range Interpretation Comments POC-GLUCOSE METER 128 mg/dL 70-110 H TESTED AT [facility] 6720 ([facility]) (test code = [facility] Humberto [facility] 1538) [address] POCT-GLUCOSE [id number] 13:31:00 Test Item Value Reference Range Interpretation Comments POC-GLUCOSE METER 70 mg/dL 70-110 TESTED AT [facility] 6720 ([facility]) (test code = [facility] Humberto [facility] [address] 1538) [id number] 13:16:00 Test Item Value Reference Range Interpretation Comments PARTIAL THROMBOPLASTIN TIME 78.3 seconds 22.5-36.0 H (BEAKER) (test code = 760) POCT-GLUCOSE [id number] 12:47:00 Test Item Value Reference Range Interpretation Comments POC-GLUCOSE METER 49 mg/dL 70-110 L TESTED AT [facility] 6720 (BEAKER) (test code = FOSTER Paul [facility] [address] 1538) POCT-GLUCOSE [id number] 09:05:00 Test Item Value Reference Range Interpretation Comments POC-GLUCOSE METER 306 mg/dL 70-110 H TESTED AT [facility] 6720 (BEAKER) (test code = [facility] Humberto [facility] 1538) [address] OCCULT BLOOD, [id number] 06:52:00 Test Item Value Reference Range Interpretation Comments FECAL OCCULT BLOOD (BEAKER) (test Positive Negative A code = 618) [id number] 05:42:00 Test Item Value Reference Range Interpretation [...] 20-55 (test code = 2590) BASIC METABOLIC [id number] 03:53:00 Test Item Value Reference Range Interpretation [...] S NOT APPLICABLE FOR DIALYSIS PATIEN TS. [id number] 03:51:00 Test Item Value Reference Range Interpretation Comments PHOSPHORUS (BEAKER) (test code = 3.2 mg/dL 2.3-4.7 604) [id number] 03:51:00 Test Item Value Reference Range Interpretation Comments PARTIAL THROMBOPLASTIN TIME 122.0 seconds 22.5-36.0 H (BEAKER) (test code = 760) While on warfarin.PROTHROMBIN [id number] 03:48:00 Test Item Value Reference Range Interpretation Comments PROTIME (BEAKER) (test code = 16.3 seconds 11.7-14.7 H 759) INR (BEAKER) (test code = 370) 1.3 <=5.9 RECOMMENDED COUMADIN/WARFARIN INR THERAPY RANGESSTANDARD DOSE: 2.0 - 3.0 Includes: PROPHYLAXIS forvenous thrombosis, systemic embolization; TREATMENT for venous thrombosis and/or pulmonary embolus.HIGH RISK: Target INR is 2.5-3.5 for patients with mechanical heart valves.While on warfarin.[id number] 03:44:00 Test Item Value Reference Range Interpretation Comments MAGNESIUM (BEAKER) (test code = 1.7 mg/dL 1.6-2.6 627) CBC W/PLT COUNT & AUTO [id number] 03:38:00 Test Item Value Reference Range Interpretation [...] PERCENT (BEAKER) (test code = 2801) POCT-GLUCOSE [id number] 23:35:00 Test Item Value Reference Range Interpretation Comments POC-GLUCOSE METER 149 mg/dL 70-110 H TESTED AT [facility] 6720 (BEAKER) (test code = FOSTER [place] 1538) [address] [id number] 20:08:00 Test Item Value Reference Range Interpretation Comments PARTIAL THROMBOPLASTIN TIME 55.6 seconds 22.5-36.0 H (BEAKER) (test code = 760) [id number] 15:10:00 Test Item Value Reference Range Interpretation Comments PARTIAL THROMBOPLASTIN TIME 81.4 seconds 22.5-36.0 H (BEAKER) (test code = 760) POCT-GLUCOSE [id number] 11:58:00 Test Item Value Reference Range Interpretation Comments POC-GLUCOSE METER 124 mg/dL 70-110 H TESTED AT [facility] 6720 ([facility]) (test code = FOSTER Pual [facility] 1538) [address] RAD, CHEST, 1 VIEW, NON [id number] 08:59:00Reason for exam:->s/p mvrShould this be performed at the bedside?->YesFINAL REPORT Chest one view compared to January 24 Discussion: Left IJ line, atrial appendage clip, cardiac valve replacement noted. Mild interstitial congestion. No gross effusion or pneumothorax. IMPRESSIONS: No significant change Signed: Rhea Colindres Verified Date/Time:01/29/2018 08:59:39 Reading Location: [facility] Radiology Reading Room POCT-GLUCOSE [id number] 07:41:00 Test Item Value Reference Range Interpretation Comments POC-GLUCOSE METER 113 mg/dL 70-110 H TESTED AT [facility] 6720 ([facility]) (test code = FOSTER Paul [facility] 1538) [address] [id number] 07:23:00 Test Item Value Reference Range Interpretation Comments PARTIAL THROMBOPLASTIN TIME 89.8 seconds 22.5-36.0 H (BEAKER) (test code = 760) BASIC METABOLIC [id number] 06:05:00 Test Item Value Reference Range Interpretation [...] NOT APPLICABLE FOR DIALYSIS PATIEN TS. PROTHROMBIN [id number] 05:59:00 Test Item Value Reference Range Interpretation Comments PROTIME (BEAKER) (test code = 17.0 seconds 11.7-14.7 H 759) INR (BEAKER) (test code = 370) 1.4 <=5.9 RECOMMENDED COUMADIN/WARFARIN INR THERAPY RANGESSTANDARD DOSE: 2.0 - 3.0 Includes: PROPHYLAXIS forvenous thrombosis, systemic embolization; TREATMENT for venous thrombosis and/or pulmonary embolus.HIGH RISK: Target INR is 2.5-3.5 for patients with mechanical heart valves.While on warfarin.[id number] 05:56:00 Test Item Value Reference Range Interpretation Comments PHOSPHORUS (BEAKER) (test code = 5.3 mg/dL 2.3-4.7 H 604) [id number] 05:56:00 Test Item Value Reference Range Interpretation Comments MAGNESIUM (BEAKER) (test code = 1.9 mg/dL 1.6-2.6 627) CBC W/PLT COUNT & AUTO [id number] 05:38:00 Test Item Value Reference Range Interpretation [...] 0-1 PERCENT (BEAKER) (test code = 2801) [id number] 01:07:00 Test Item Value Reference Range Interpretation Comments PARTIAL THROMBOPLASTIN TIME 63.5 seconds 22.5-36.0 H (BEAKER) (test code = 760) [id number] 18:24:00 Test Item Value Reference Range Interpretation Comments PARTIAL THROMBOPLASTIN TIME 56.6 seconds 22.5-36.0 H (BEAKER) (test code = 760) POCT-GLUCOSE [id number] 18:14:00 Test Item Value Reference Range Interpretation Comments POC-GLUCOSE METER 101 mg/dL 70-110 TESTED AT [facility] 6720 (BEAKER) (test code = [place] 1538) [address] [id number] 13:57:00 Test Item Value Reference Range Interpretation Comments PARTIAL THROMBOPLASTIN TIME 122.3 seconds 22.5-36.0 H (BEAKER) (test code = 760) POCT-GLUCOSE [id number] 13:08:00 Test Item Value Reference Range Interpretation Comments POC-GLUCOSE METER 105 mg/dL 70-110 TESTED AT [facility] 6720 (BEAKER) (test code = [place] [facility] 1538) [id number] BASIC METABOLIC [id number] 04:31:00 Test Item Value Reference Range Interpretation [...] S NOT APPLICABLE FOR DIALYSIS PATIEN TS. [id number] 04:28:00 Test Item Value Reference Range Interpretation Comments PHOSPHORUS (BEAKER) (test code = 3.9 mg/dL 2.3-4.7 604) [id number] 04:28:00 Test Item Value Reference Range Interpretation Comments MAGNESIUM (BEAKER) (test code = 1.7 mg/dL 1.6-2.6 627) HEPATIC FUNCTION [id number] 04:28:00 Test Item Value Reference Range Interpretation [...] (test code = 33 U/L 6-55 347) [id number] 04:20:00 Test Item Value Reference Range Interpretation Comments PARTIAL THROMBOPLASTIN TIME 106.2 seconds 22.5-36.0 H (BEAKER) (test code = 760) While on warfarin.PROTHROMBIN TIME/[id number] 04:15:00 Test Item Value Reference Range Interpretation [...] valves.While on warfarin.CBC W/PLT COUNT & AUTO [id number] 04:05:00 Test Item Value Reference Range Interpretation [...] 0-1 H PERCENT (BEAKER) (test code = 2807) POCT-GLUCOSE [id number] 00:29:00 Test Item Value Reference Range Interpretation Comments POC-GLUCOSE METER 119 mg/dL 70-110 H TESTED AT [facility] 67 ([facility]) (test code = FOSTER [place] 1538) [address] [id number] 00:24:00 Test Item Value Reference Range Interpretation Comments PARTIAL THROMBOPLASTIN TIME 72.4 seconds 22.5-36.0 H (BEAKER) (test code = 760) POCT-GLUCOSE [id number] 18:33:00 Test Item Value Reference Range Interpretation Comments POC-GLUCOSE METER 158 mg/dL 70-110 H TESTED AT [place] [address] ([facility]) (test code = FOSTER Paul [place] 1538) [address] [id number] 18:22:00 Test Item Value Reference Range Interpretation Comments PARTIAL THROMBOPLASTIN TIME 78.6 seconds 22.5-36.0 H ([facility]) (test code = 760) POCT-GLUCOSE [id number] 12:20:00 Test Item Value Reference Range Interpretation Comments POC-GLUCOSE METER 110 mg/dL 70-110 TESTED AT [facility] 6720 ([facility]) (test code = FOSTER Paul [place] 1538) [address] [id number] 12:04:00 Test Item Value Reference Range Interpretation Comments PARTIAL THROMBOPLASTIN TIME 98.0 seconds 22.5-36.0 H ([facility]) (test code = 760) [id number] 04:11:00 Test Item Value Reference Range Interpretation Comments PROTIME ([facility]) (test code = 15.2 seconds 11.7-14.7 H 759) INR ([facility]) (test code = 370) 1.2 <=5.9 PARTIAL THROMBOPLASTIN TIME 67.9 seconds 22.5-36.0 H ([facility]) (test code = 760) RECOMMENDED COUMADIN/WARFARIN INR THERAPY RANGESSTANDARD DOSE: 2.0 - 3.0 Includes: PROPHYLAXIS forvenous thrombosis, systemic embolization; TREATMENT for venous thrombosis and/or pulmonary embolus.HIGH RISK: Target INR is 2.5-3.5 for patients with mechanical heart valves.While on warfarin.While on warfarin. PROTHROMBIN [id number] 04:10:00 Test Item Value Reference Range Interpretation Comments PROTIME (BEAKER) (test code = 15.2 seconds 11.7-14.7 H 759) INR ([facility]) (test code = 370) 1.2 <=5.9 RECOMMENDED COUMADIN/WARFARIN INR THERAPY RANGESSTANDARD DOSE: 2.0 - 3.0 Includes: PROPHYLAXIS forvenous thrombosis, systemic embolization; TREATMENT for venous thrombosis and/or pulmonary embolus.HIGH RISK: Target INR is 2.5-3.5 for patients with mechanical heart valves.BASIC METABOLIC [id number] 03:53:00 Test Item Value Reference Range Interpretation [...] PATIEN TS. CBC W/PLT COUNT & AUTO [id number] 03:50:00 Test Item Value Reference Range Interpretation [...] H PERCENT (BEAKER) (test code = 2801) [id number] 03:45:00 Test Item Value Reference Range Interpretation Comments PHOSPHORUS (BEAKER) (test code = 4.7 mg/dL 2.3-4.7 604) [id number] 03:45:00 Test Item Value Reference Range Interpretation Comments MAGNESIUM (BEAKER) (test code = 2.0 mg/dL 1.6-2.6 627) HEPATIC FUNCTION [id number] 03:45:00 Test Item Value Reference Range Interpretation [...] (test code = 36 U/L 6-55 347) [id number] 22:16:00 Test Item Value Reference Range Interpretation Comments PARTIAL THROMBOPLASTIN TIME 60.7 seconds 22.5-36.0 H (BEAKER) (test code = 760) POCT-GLUCOSE [id number] 18:32:00 Test Item Value Reference Range Interpretation Comments POC-GLUCOSE METER 125 mg/dL 70-110 H TESTED AT [facility] 6720 (BEAKER) (test code = [place]ER [place] 1538) [address] CBC (HEMOGRAM ONLY)2018-01-26 17:21:00 Test Item Value [...] (BEAKER) (test code = 413) BASIC METABOLIC [id number] 07:16:00 Test Item Value Reference Range Interpretation [...] S NOT APPLICABLE FOR DIALYSIS PATIEN TS. [id number] 07:13:00 Test Item Value Reference Range Interpretation Comments PHOSPHORUS (BEAKER) (test code = 4.3 mg/dL 2.3-4.7 604) [id number] 07:13:00 Test Item Value Reference Range Interpretation Comments MAGNESIUM (BEAKER) (test code = 2.0 mg/dL 1.6-2.6 627) HEPATIC FUNCTION [id number] 07:13:00 Test Item Value Reference Range Interpretation [...] (test code = 37 U/L 6-55 347) [id number] 07:12:00 Test Item Value Reference Range Interpretation [...] PERCENT (BEAKER) (test code = 2801) BLOOD [id number] 00:00:00 Test Item Value Reference Range Interpretation Comments CULTURE (BEAKER) (test No growth in 5 days code = 1095) BLOOD [id number] 00:00:00 Test Item Value Reference Range Interpretation Comments CULTURE (BEAKER) (test No growth in 5 days code = 1095) POCT-GLUCOSE [id number] 23:37:00 Test Item Value Reference Range Interpretation Comments POC-GLUCOSE METER 87 mg/dL 70-110 TESTED AT [place] [id number] ([facility]) (test code = [facility] [address] 1538) [id number] 23:06:00 Test Item Value Reference Range Interpretation Comments PARTIAL THROMBOPLASTIN TIME 81.8 seconds 22.5-36.0 H (BEAKER) (test code = 760) POCT-GLUCOSE [id number] 20:42:00 Test Item Value Reference Range Interpretation Comments POC-GLUCOSE METER 193 mg/dL 70-110 H TESTED AT [facility] 6720 (BEAKER) (test code = [facility] 1538) [address] HEMOGLOBIN AND [id number] 17:40:00 Test Item Value Reference Range Interpretation Comments HEMOGLOBIN (BEAKER) (test code = 8.4 GM/DL 13.7-17.5 L 410) HEMATOCRIT (BEAKER) (test code = 25.4 % 40.1-51.0 L 411) [id number] 13:06:00 Test Item Value Reference Range Interpretation Comments PARTIAL THROMBOPLASTIN TIME 61.4 seconds 22.5-36.0 H (BEAKER) (test code = 760) POCT-GLUCOSE [id number] 12:56:00 Test Item Value Reference Range Interpretation Comments POC-GLUCOSE METER 116 mg/dL 70-110 H TESTED AT [facility] 6720 (BEAKER) (test code = [place] 1538) [address] [id number] 06:43:00 Test Item Value Reference Range Interpretation [...] 37 % 20-55 (test code = 2590) [id number] 05:32:00 Test Item Value Reference Range Interpretation Comments PARTIAL THROMBOPLASTIN TIME 63.7 seconds 22.5-36.0 H (BEAKER) (test code = 760) BASIC METABOLIC [id number] 05:03:00 Test Item Value Reference Range Interpretation [...] APPLICABLE FOR DIALYSIS PATIEN TS. HEPATIC FUNCTION [id number] 05:00:00 Test Item Value Reference Range Interpretation [...] (test code = 41 U/L 6-55 347) [id number] 04:40:00 Test Item Value Reference Range Interpretation [...] 0-0 (BEAKER) (test code = 413) POCT-GLUCOSE [id number] 00:30:00 Test Item Value Reference Range Interpretation Comments POC-GLUCOSE METER 112 mg/dL 70-110 H TESTED AT [facility] 6720 (BEAKER) (test code = [place] 1538) [address] CBC W/PLT COUNT & AUTO [id number] 19:16:00 Test Item Value Reference Range Interpretation [...] PERCENT (BEAKER) (test code = 2801) POCT-GLUCOSE [id number] 18:27:00 Test Item Value Reference Range Interpretation Comments POC-GLUCOSE METER 102 mg/dL 70-110 TESTED AT [place] [address] ([facility]) (test code = [facility] 1538) [address] POCT-GLUCOSE [id number] 13:01:00 Test Item Value Reference Range Interpretation Comments POC-GLUCOSE METER 119 mg/dL 70-110 H TESTED AT [place] [address] ([facility]) (test code = [facility] 1538) [address] RAD, CHEST, 1 VIEW, NON [id number] 10:59:00Reason for exam:->ptxShould this be performed at [...] increase in pulmonary opacities. Signed: Sarah Beth Mejiaeport Verified Date/Time: 01/24/2018 10:59:29 Reading Location: [facility] Diagnostic Imaging Reading Room - [place] [address] 1120 BRONCHIAL CULTURE + GRAM STAIN 2018-01-24 08:53:00 Test Item Value Reference Range Interpretation Comments CULTURE (BEAKER) 2+ Normal respiratory (test code = 1095) pete present GRAM STAIN RESULT 4+ White blood cells (BEAKER) (test code = seen 1123) GRAM STAIN RESULT No organisms seen (BEAKER) (test code = 58305) POCT-GLUCOSE [id number] 06:28:00 Test Item Value Reference Range Interpretation Comments POC-GLUCOSE METER 119 mg/dL 70-110 H TESTED AT [facility] 6720 (BEAKER) (test code = [place] 1538) [address] BASIC METABOLIC [id number] 04:41:00 Test Item Value Reference Range Interpretation [...] WBC 0-0 (BEAKER) (test code = 413) [id number] 04:21:00 Test Item Value Reference Range Interpretation Comments MAGNESIUM (BEAKER) (test code = 2.0 mg/dL 1.6-2.6 627) HEPATIC FUNCTION [id number] 04:21:00 Test Item Value Reference Range Interpretation [...] 36 U/L 5-34 H 353) ALT (SGPT) (AKER) (test code = 36 U/L 6-55 347) Specimen slightly [id number] 04:13:00 Test Item Value Reference Range Interpretation Comments PARTIAL THROMBOPLASTIN TIME 72.1 seconds 22.5-36.0 H (BEAKER) (test code = 760) BLOOD GAS, [id number] 04:13:00 Test Item Value Reference Range Interpretation [...] (test code = 1819) 100.0 % POCT-GLUCOSE [id number] 00:08:00 Test Item Value Reference Range Interpretation Comments POC-GLUCOSE METER 150 mg/dL 70-110 H TESTED AT [place] [address] ([facility]) (test code = [facility] Humberto [facility] 1538) [address] POCT-GLUCOSE [id number] 18:45:00 Test Item Value Reference Range Interpretation Comments POC-GLUCOSE METER 162 mg/dL 70-110 H TESTED AT [place] [address] ([facility]) (test code = [facility] 1538) [address] POCT-GLUCOSE [id number] 13:14:00 Test Item Value Reference Range Interpretation Comments POC-GLUCOSE METER 176 mg/dL 70-110 H TESTED AT [place] [address] ([facility]) (test code = [facility] 1538) [address] POCT-GLUCOSE [id number] 10:44:00 Test Item Value Reference Range Interpretation Comments POC-GLUCOSE METER 146 mg/dL 70-110 H TESTED AT [place] [address] ([facility]) (test code = [facility] 1538) [address] BLOOD GAS, [id number] 10:32:00 Test Item Value Reference Range Interpretation [...] 40.0 % RAD, CHEST, 1 VIEW, NON [id number] 09:14:00Reason for exam:->ptxShould this be performed at [...] MDReport Verified Date/Time: 01/23/2018 09:14:48 Reading Location: [facility] Radiology Reading Room Electronically sign ed by: KYLE ROME M.D. on 01/23/2018 09:14 AMBLOOD [id number] 08:09:00 Test Item Value Reference Range Interpretation Comments CULTURE (BEAKER) A From Aerobi c Bottle (test code = Only [place] 1095) species GRAM STAIN From aerobic RESULT (BEAKER) bottle only: gram (test code = positive rods 1123) NOT DETECTEDPanel is negative for Beautylish BCID-detectable organisms. Please refer to traditional culture and sensitivity results as they become available.Other organisms and resistance markers not contained in this PCR panel cannot be excluded and follow-up of traditional culture results is required.This sample was tested at the [facility] Clinical Microbiology Laboratory using the unamia Blood Culture ID Panel. This test is FDA cleared for in vitro diagnostic use and has been verified and approved by the [facility] Clinical Microbiology laboratory for clinical use. Reference Range: Not DetectedBLOOD GAS, [id number] 04:45:00 Test Item Value Reference Range Interpretation [...] code = 1819) 40.0 % BASIC METABOLIC [id number] 04:39:00 Test Item Value Reference Range Interpretation [...] APPLICABLE FOR DIALYSIS PATIEN TS. Specimen slightly [id number] 04:35:00 Test Item Value Reference Range Interpretation Comments MAGNESIUM (BEAKER) (test code = 1.8 mg/dL 1.6-2.6 627) HEPATIC FUNCTION [id number] 04:35:00 Test Item Value Reference Range Interpretation [...] = 40 U/L 6-55 347) Specimen slightly [id number] 04:18:00 Test Item Value Reference Range Interpretation [...] WBC 0-0 (test code = 413) POCT-GLUCOSE [id number] 00:52:00 Test Item Value Reference Range Interpretation Comments POC-GLUCOSE METER 145 mg/dL 70-110 H TESTED AT [place] [address] ([facility]) (test [facility] = [facility] 1538) [address] BLOOD [id number] 00:00:00 Test Item Value Reference Range Interpretation Comments CULTURE (BEAKER) (test No growth in 5 days code = 1095) POCT-GLUCOSE [id number] 18:17:00 Test Item Value Reference Range Interpretation Comments POC-GLUCOSE METER 97 mg/dL 70-110 TESTED AT [place] [address] ([facility]) (test code = [facility] [address] 1538) POCT-GLUCOSE [id number] 13:26:00 Test Item Value Reference Range Interpretation Comments POC-GLUCOSE METER 138 mg/dL 70-110 H TESTED AT [place] [address] ([facility]) (test code = [facility] 1538) [address] BLOOD GAS, [id number] 10:32:00 Test Item Value Reference Range Interpretation [...] (test code = 1819) 40.0 % POCT-GLUCOSE [id number] 06:21:00 Test Item Value Reference Range Interpretation Comments POC-GLUCOSE METER 138 mg/dL 70-110 H TESTED AT [facility] 6720 (BEAKER) (test code = [place] 1537) [address] BASIC METABOLIC [id number] 04:25:00 Test Item Value Reference Range Interpretation [...] APPLICABLE FOR DIALYSIS PATIEN TS. Specimen slightly [id number] 04:24:00 Test Item Value Reference Range Interpretation Comments MAGNESIUM (BEAKER) (test code = 2.1 mg/dL 1.6-2.6 627) HEPATIC FUNCTION [id number] 04:24:00 Test Item Value Reference Range Interpretation [...] /100 WBC 0-0 (test code = 413) [id number] 04:07:00 Test Item Value Reference Range Interpretation Comments PARTIAL THROMBOPLASTIN TIME 80.2 seconds 22.5-36.0 H (BEAKER) (test code = 760) BLOOD GAS, [id number] 04:06:00 Test Item Value Reference Range Interpretation [...] -2.0-3.0 (test code = 387) PATIENT TEMPERATURE ([facility]) (test 37.0 C code = 1818) FIO2 (AKER) (test code = 1819) 40.0 % RAD, CHEST, 1 VIEW, NON [id number] 03:32:00Reason for exam:->ptxShould this be performed at [...] MDReport Verified Date/Time: 01/22/2018 03:32:38 Reading Location: [place] [address]Y CT Body Reading Room POCT-GLUCOSE [id number] 00:43:00 Test Item Value Reference Range Interpretation Comments POC-GLUCOSE METER 102 mg/dL 70-110 TESTED AT [facility] 6720 ([facility]) (test code = FOSTER Paul [facility] 1538) [address] [id number] 17:31:00 Test Item Value Reference Range Interpretation Comments PARTIAL THROMBOPLASTIN TIME 65.0 seconds 22.5-36.0 H ([facility]) (test code = 760) POCT-GLUCOSE [id number] 17:24:00 Test Item Value Reference Range Interpretation Comments POC-GLUCOSE METER 171 mg/dL 70-110 H TESTED AT [facility] 6720 ([facility]) (test code = FOSTER Paul [facility] 1538) [address] POCT-GLUCOSE [id number] 13:01:00 Test Item Value Reference Range Interpretation Comments POC-GLUCOSE METER 144 mg/dL 70-110 H TESTED AT [place] [address] ([facility]) (test code = FOSTER Paul [facility] 1538) [address] [id number] 11:12:00 Test Item Value Reference Range Interpretation Comments PARTIAL THROMBOPLASTIN TIME 67.9 seconds 22.5-36.0 H (BEAKER) (test code = 760) RAD, CHEST, 1 VIEW, NON [id number] 08:01:00Reason for exam:->ptxShould this be performed at [...] MDReport Verified Date/Time: 01/21/2018 08:01:07 Reading Location: [facility] Radiology Reading Room POCT-GLUCOSE [id number] 06:50:00 Test Item Value Reference Range Interpretation Comments POC-GLUCOSE METER 149 mg/dL 70-110 H TESTED AT [facility] 6720 ([facility]) (test code = [place] 1538) [address] CBC (HEMOGRAM ONLY)2018-01-21 04:20:00 Test Item Value [...] /100 WBC 0-0 (test code = 413) [id number] 04:03:00 Test Item Value Reference Range Interpretation Comments PARTIAL THROMBOPLASTIN TIME 51.2 seconds 22.5-36.0 H (BEAKER) (test code = 760) BASIC METABOLIC [id number] 04:01:00 Test Item Value Reference Range Interpretation [...] APPLICABLE FOR DIALYSIS PATIEN TS. Specimen moderately [id number] 03:59:00 Test Item Value Reference Range Interpretation Comments MAGNESIUM (BEAKER) (test code = 2.0 mg/dL 1.6-2.6 627) HEPATIC FUNCTION [id number] 03:59:00 Test Item Value Reference Range Interpretation [...] U/L 6-55 347) Specimen moderately ictericVANCOMYCIN LEVEL, [id number] 03:57:00 Test Item Value Reference Range Interpretation Comments VANCOMYCIN RANDOM (BEAKER) (test 18.3 ug/mL code = 523) Reference Range: No NormalsOXYGEN SATURATION, [id number] 03:32:00 Test Item Value Reference Range Interpretation Comments O2 SATURATION (MEASURED) (BEAKER) 86.3 % (test code = 1455) BLOOD GAS, [id number] 03:30:00 Test Item Value Reference Range Interpretation [...] (test code = 1819) 40.0 % POCT-GLUCOSE [id number] 23:43:00 Test Item Value Reference Range Interpretation Comments POC-GLUCOSE METER 143 mg/dL 70-110 H TESTED AT [facility] 6720 (BEAKER) (test code = [place] 1538) [address] BLOOD [id number] 18:00:00 Test Item Value Reference Range Interpretation Comments CULTURE ([facility]) (test No growth in 5 days code = 1095) BLOOD [id number] 18:00:00 Test Item Value Reference Range Interpretation Comments CULTURE (JARROD) (test No growth in 5 days code = 1095) POCT-GLUCOSE [id number] 16:32:00 Test Item Value Reference Range Interpretation Comments POC-GLUCOSE METER 185 mg/dL 70-110 H TESTED AT [place] [address] ([facility]) (test code = FOSTER Paul [facility] 1538) [address] MISCELLANEOUS LAB [id number] 15:04:00 Test Item Value Reference Range Interpretation Comments SCAN RESULT (test code = 1511164) Result comments: NOT DETECTED Panel is negative for BioFire BCID-detectable organisms. Please refer to traditional culture and sensitivity results as they become available. Other organisms and resistance markers not contained in this PCR panel cannot be excluded and follow-up of traditional culture results is required. This sample was tested at the [facility] Clinical Microbiology Laboratory using the [employer] Film[employer] Blood Culture ID Panel. This test is FDA cleared for in vitro diagnostic use and hasbeen verified and approved by the [facility] Clinical Microbiology laboratory for clinical use. ReferenceRange: Not DetectedPOCT- GLUCOSE [id number] 12:25:00 Test Item Value Reference Range Interpretation Comments POC-GLUCOSE METER 116 mg/dL 70-110 H TESTED AT [place] [address] ([facility]) (test code = FOSTER Paul [facility] 1538) [address] RAD, CHEST, 1 VIEW, NON [id number] 06:38:00Reason for exam:->pl effusionShould this be performed [...] MDReport Verified Date/Time: 01/20/2018 06:38:33 Reading Location: [facility] [address] Body Reading Room POCT-GLUCOSE [id number] 05:54:00 Test Item Value Reference Range Interpretation Comments POC-GLUCOSE METER 231 mg/dL 70-110 H TESTED AT [facility] 6720 (BEAKER) (test code = [place] 1538) [address] VANCOMYCIN LEVEL, [id number] 04:23:00 Test Item Value Reference Range Interpretation Comments VANCOMYCIN RANDOM (BEAKER) (test 25.8 ug/mL code = 523) Reference Range: No [id number] 04:17:00 Test Item Value Reference Range Interpretation Comments MAGNESIUM (BEAKER) (test code = 2.0 mg/dL 1.6-2.6 627) HEPATIC FUNCTION [id number] 04:17:00 Test Item Value Reference Range Interpretation [...] 6-55 H 347) Specimen moderately ictericBASIC METABOLIC [id number] 04:17:00 Test Item Value Reference Range Interpretation [...] APPLICABLE FOR DIALYSIS PATIEN TS. Specimen moderately [id number] 04:05:00 Test Item Value Reference Range Interpretation Comments PARTIAL THROMBOPLASTIN TIME 69.7 seconds 22.5-36.0 H (BEAKER) (test code = 760) CBC W/PLT COUNT & AUTO [id number] 03:49:00 Test Item Value Reference Range Interpretation [...] (BEAKER) (test code = 2801) OXYGEN SATURATION, [id number] 03:48:00 Test Item Value Reference Range Interpretation Comments O2 SATURATION (MEASURED) (BEAKER) 84.1 % (test code = 1455) POCT-GLUCOSE [id number] 23:14:00 Test Item Value Reference Range Interpretation Comments POC-GLUCOSE METER 248 mg/dL 70-110 H TESTED AT [place] [address] ([facility]) (test code = [facility] 1538) [address] POCT-GLUCOSE [id number] 18:56:00 Test Item Value Reference Range Interpretation Comments POC-GLUCOSE METER 213 mg/dL 70-110 H TESTED AT [facility] 6720 ([facility]) (test code = [facility] 1538) [address] POCT-GLUCOSE [id number] 14:06:00 Test Item Value Reference Range Interpretation Comments POC-GLUCOSE METER 210 mg/dL 70-110 H TESTED AT [place] [id number] ([facility]) (test code = [facility] 1538) [address] SPUTUM CULTURE + GRAM [id number] 13:45:00 Test Item Value Reference Range Interpretation Comments CULTURE (BEAKER) 4+ Normal respiratory (test code = 1095) pete present GRAM STAIN RESULT 4+ WBCs (BEAKER) (test code = 1123) GRAM STAIN RESULT 0-5 epithelial cells (BEAKER) (test code = 66003) GRAM STAIN RESULT 3+ gram negative rods (BEAKER) (test code = 39624) GRAM STAIN RESULT 2+ gram positive cocci (BEAKER) (test code = in pairs and clusters 534451) [id number] 12:37:00 Test Item Value Reference Range Interpretation Comments PARTIAL THROMBOPLASTIN TIME 74.3 seconds 22.5-36.0 H (BEAKER) (test code = 760) CBC W/PLT COUNT & AUTO [id number] 10:52:00 Test Item Value Reference Range Interpretation [...] H (test code = 413) VANCOMYCIN LEVEL, [id number] 05:41:00 Test Item Value Reference Range Interpretation Comments VANCOMYCIN RANDOM (BEAKER) (test 27.9 ug/mL code = 523) Reference Range: No NormalsBASIC METABOLIC [id number] 05:39:00 Test Item Value Reference Range Interpretation [...] APPLICABLE FOR DIALYSIS PATIEN TS. Specimen moderately [id number] 05:36:00 Test Item Value Reference Range Interpretation Comments MAGNESIUM (BEAKER) (test code = 2.0 mg/dL 1.6-2.6 627) [id number] 05:36:00 Test Item Value Reference Range Interpretation Comments PHOSPHORUS (BEAKER) (test code = 3.9 mg/dL 2.3-4.7 604) HEPATIC FUNCTION [id number] 05:36:00 Test Item Value Reference Range Interpretation [...] 6-55 H 347) Specimen moderately ictericOXYGEN SATURATION, [id number] 05:33:00 Test Item Value Reference Range Interpretation [...] WBC 0-0 H (test code = 413) [id number] 05:24:00 Test Item Value Reference Range Interpretation Comments PARTIAL THROMBOPLASTIN TIME 68.1 seconds 22.5-36.0 H (BEAKER) (test code = 760) RAD, CHEST, 1 VIEW, NON [id number] 04:41:00Reason for exam:->pl effusionShould this be performed at the bedside?->YesFINAL REPORT CLINICAL INDICATION: Support lines. Comparison: 01/18/2018 The ca rdiomediastinal contours are stable. Central pulmonary vascular congestion and bilateral parenchymalopacities are unchanged. There is no pneumothorax. Support lines are stable. Signed: Kellen Parra MDReport Verified Date/Time: 01/19/2018 04:41:27 Reading Location: [address] Reading Room APTT 2018-01-19 00:38:00 Test Item Value Reference Range Interpretation Comments PARTIAL THROMBOPLASTIN TIME 45.5 seconds 22.5-36.0 H ([facility]) (test code = 760) POCT-GLUCOSE [id number] 00:21:00 Test Item Value Reference Range Interpretation Comments POC-GLUCOSE METER 189 mg/dL 70-110 H TESTED AT [place] [address] ([facility]) (test code = [facility] H[facility]to [facility] 1538) [id number] POCT-GLUCOSE [id number] 23:34:00 Test Item Value Reference Range Interpretation Comments POC-GLUCOSE METER 162 mg/dL 70-110 H TESTED AT [place] [address] ([facility]) (test code = [facility] go2 media [facility] 1538) [id number] POCT-GLUCOSE [id number] 18:09:00 Test Item Value Reference Range Interpretation Comments POC-GLUCOSE METER 172 mg/dL 70-110 H TESTED AT [place] [address] ([facility]) (test code = [facility] H[facility]to [facility] 1538) [id number] RAD, ABDOMEN/KUB, 1 VIEW [id number] 17:36:00Reason for exam:->ileusShould this be performed at the bedside?->YesFINAL REPORT Comparison: 01/17/2018 TECHNIQUE: Frontal image of the abdomen FINDINGS: There is a nonspecific bowel gas pattern. Tip of nasogastric projects in the distal stomach. No gross free intraperitoneal air. No acute skeletal abnormality. Signed: Kyle Rome MDReport Verified Date/Time: 01/18/2018 17:36:02 Reading Location: [facility] [address] [place] [address] Reading Room [id number] 17:10:00 Test Item Value Reference Range Interpretation Comments PARTIAL THROMBOPLASTIN TIME 27.8 seconds 22.5-36.0 (BEAKER) (test code = 760) Prior to initiating heparinPOCT-GLUCOSE [id number] 15:22:00 Test Item Value Reference Range Interpretation Comments POC-GLUCOSE METER 126 mg/dL 70-110 H TESTED AT [facility] 6720 (BEAKER) (test code = [place] 1538) [address] [id number] 13:02:00 Test Item Value Reference Range Interpretation Comments PHOSPHORUS (BEAKER) (test code = 3.8 mg/dL 2.3-4.7 604) BASIC METABOLIC [id number] 13:02:00 Test Item Value Reference Range Interpretation [...] FOR DIALYSIS PATIEN TS. Specimen moderately ictericPOCT-GLUCOSE [id number] 12:11:00 Test Item Value Reference Range Interpretation Comments POC-GLUCOSE METER 113 mg/dL 70-110 H TESTED AT [facility] 6720 ([facility]) (test code = [place] 1538) [address] CBC W/PLT COUNT & AUTO [id number] 12:03:00 Test Item Value Reference Range Interpretation [...] = 413) RAD, CHEST, 1 VIEW, NON [id number] 09:44:00Reason for exam:->pl effusionShould this be performed [...] MDReport Verified Date/Time: 01/18/2018 09:44:26 Reading Location: [address] Transitional Reading Room SPUTUM CULTURE + GRAM [id number] 08:09:00 Test Item Value Reference Range Interpretation Comments CULTURE (BEAKER) 3+ Normal respiratory (test code = 1095) pete present GRAM STAIN RESULT 4+ WBCs (BEAKER) (test code = 1123) GRAM STAIN RESULT 0-5 epithelial cells (BEAKER) (test code = 08890) GRAM STAIN RESULT No organisms seen (BEAKER) (test code = 93878) POCT-GLUCOSE [id number] 07:52:00 Test Item Value Reference Range Interpretation Comments POC-GLUCOSE METER 146 mg/dL 70-110 H TESTED AT [facility] 6720 (BEAKER) (test code = [facility] 1538) [address] POCT-GLUCOSE [id number] 06:30:00 Test Item Value Reference Range Interpretation Comments POC-GLUCOSE METER 135 mg/dL 70-110 H TESTED AT [facility] 6720 (BEAKER) (test code = [facility] 1538) [address] POCT-GLUCOSE [id number] 06:30:00 Test Item Value Reference Range Interpretation Comments POC-GLUCOSE METER 130 mg/dL 70-110 H TESTED AT [facility] 6720 (BEAKER) (test code = [facility] 1538) [address] [id number] 03:56:00 Test Item Value Reference Range Interpretation Comments PHOSPHORUS (BEAKER) (test code = 3.1 mg/dL 2.3-4.7 604) [id number] 03:56:00 Test Item Value Reference Range Interpretation Comments MAGNESIUM (BEAKER) (test code = 2.0 mg/dL 1.6-2.6 627) HEPATIC FUNCTION [id number] 03:56:00 Test Item Value Reference Range Interpretation [...] 6-55 H 347) Specimen moderately ictericVANCOMYCIN LEVEL, [id number] 03:53:00 Test Item Value Reference Range Interpretation Comments VANCOMYCIN RANDOM ([facility]) (test 18.0 ug/mL code = 523) Reference Range: No [id number] 03:48:00 Test Item Value Reference Range Interpretation Comments CALCIUM ([facility]) (test code = 697) 8.1 mg/dL 8.4-10.2 L CALCIUM, [id number] 03:34:00 Test Item Value Reference Range Interpretation Comments CALCIUM IONIZED ([facility]) (test 1.06 mmol/L 1.12-1.27 L code = 698) PH, BLOOD ([facility]) (test code = 7.38 1810) OXYGEN SATURATION, [id number] 03:33:00 Test Item Value Reference Range Interpretation Comments O2 SATURATION (MEASURED) ([facility]) 85.8 % (test code = 1455) POCT-GLUCOSE [id number] 03:26:00 Test Item Value Reference Range Interpretation Comments POC-GLUCOSE METER 144 mg/dL 70-110 H TESTED AT [place] [address] ([facility]) (test code = [facility] 1538) [address] POCT-GLUCOSE [id number] 03:26:00 Test Item Value Reference Range Interpretation Comments POC-GLUCOSE METER 163 mg/dL 70-110 H TESTED AT [place] [address] ([facility]) (test code = [facility] 1538) [address] POCT-GLUCOSE [id number] 01:04:00 Test Item Value Reference Range Interpretation Comments POC-GLUCOSE METER 159 mg/dL 70-110 H TESTED AT [place] [address] ([facility]) (test code = [facility] 1538) [address] POCT-GLUCOSE [id number] 00:12:00 Test Item Value Reference Range Interpretation Comments POC-GLUCOSE METER 132 mg/dL 70-110 H TESTED AT [place] [address] ([facility]) (test code = [facility] 1538) [address] LACTIC ACID, ARTERIAL, WHOLE [id number] 23:54:00 Test Item Value Reference Range Interpretation Comments LACTATE BLOOD ARTERIAL (2) 0.7 mmol/L 0.5-2.2 ([facility]) (test code = 2874) Effective 01/04/2016: Units/Reference Range ChangeNew: 0.5-2.2 mmol/L Previous: 5-20 mg/dLSpecimen moderately ictericPOTASSIUM-STAT [id number] 23:30:00 Test Item Value Reference Range Interpretation Comments POTASSIUM (BEAKER) (test code = 4.0 meq/L 3.6-5.5 379) BLOOD GAS, [id number] 23:30:00 Test Item Value Reference Range Interpretation [...] code = 1819) 50.0 % SODIUM NA-STAT [id number] 23:30:00 Test Item Value Reference Range Interpretation Comments SODIUM (BEAKER) (test code = 381) 134 meq/L 135-148 L GLUCOSE-STAT [id number] 23:30:00 Test Item Value Reference Range Interpretation Comments GLUCOSE RANDOM (BEAKER) (test code 138 mg/dL 70-110 H = 652) HGB/HCT (H&H) - STAT [id number] 23:30:00 Test Item Value Reference Range Interpretation Comments HEMOGLOBIN (BEAKER) (test code = 9.0 g/dL 13.0-16.8 L 410) HEMATOCRIT (BEAKER) (test code = 26.0 % 40.0-50.0 L 411) CALCIUM, [id number] 23:30:00 Test Item Value Reference Range Interpretation Comments CALCIUM IONIZED (BEAKER) (test 1.04 mmol/L 1.12-1.27 L code = 698) PH, BLOOD (BEAKER) (test code = 7.48 1810) OXYGEN SATURATION, [id number] 23:28:00 Test Item Value Reference Range Interpretation Comments O2 SATURATION (MEASURED) ([facility]) 82.0 % (test code = 1455) POCT-GLUCOSE [id number] 21:35:00 Test Item Value Reference Range Interpretation Comments POC-GLUCOSE METER 99 mg/dL 70-110 TESTED AT [facility] 6720 ([facility]) (test code = [place] [facility] [address] 1538) POCT-GLUCOSE [id number] 21:35:00 Test Item Value Reference Range Interpretation Comments POC-GLUCOSE METER 111 mg/dL 70-110 H TESTED AT [facility] 6720 ([facility]) (test code = [facility] Humberto [facility] 1538) [address] RAD, CHEST, 1 VIEW, NON [id number] 17:08:00Reason for exam:->LIJ placment CVCShould this be [...] [place] Verified Date/Time: 01/17/2018 17:08:24 Reading Location: [facility] Radiology Reading Room GLUCOSE-STAT [id number] 16:33:00 Test Item Value Reference Range Interpretation Comments GLUCOSE RANDOM (BEAKER) (test code 147 mg/dL 70-110 H = 652) POTASSIUM-STAT [id number] 16:32:00 Test Item Value Reference Range Interpretation Comments POTASSIUM (BEAKER) (test code = 4.7 meq/L 3.6-5.5 379) [id number] 15:03:00 Test Item Value Reference Range Interpretation Comments PROCALCITONIN (BEAKER) (test code 5.33 ng/mL <0.05 H = 3036) SEPSIS RISK (ng/mL)Low: 0.05-0.50Intermediate: 0.51-2.00High: >=2.01CT BRAIN WITHOUT IV CONTRAST - [id number] 13:50:00Reason for exam:->altered mental statusFINAL REPORT CT [...] should be excluded clinically. Signed: Dung Granda [facility] Verified Date/Time: 01/17/2018 13:50:42 Reading Location: [facility] Radiology Reading Room CALCIUM, [id number] 12:36:00 Test Item Value Reference Range Interpretation Comments CALCIUM IONIZED (BEAKER) (test 1.09 mmol/L 1.12-1.27 L code = 698) PH, BLOOD (BEAKER) (test code = 7.36 1810) GLUCOSE-STAT [id number] 12:36:00 Test Item Value Reference Range Interpretation Comments GLUCOSE RANDOM (BEAKER) (test code 147 mg/dL 70-110 H = 652) POTASSIUM-STAT [id number] 12:36:00 Test Item Value Reference Range Interpretation Comments POTASSIUM (BEAKER) (test code = 4.7 meq/L 3.6-5.5 379) RAD, ABDOMEN/KUB, 1 VIEW [id number] 08:42:00Reason for exam:->ileusShould this be performed at [...] MDReport Verified Date/Time: 01/17/2018 08:42:09 Reading Location: [facility] Radiology Reading Room CBC W/PLT COUNT & AUTO [id number] 08:18:00 Test Item Value Reference Range Interpretation [...] (test code = 413) HEPARIN ASSAY - [id number] 08:07:00 Test Item Value Reference Range Interpretation Comments UNFRACTIONATED HEPARIN-ANTI 10A < u/ml 0.30-0.70 L (AKER) (test code = 1606) Recommendations for Monitoring Unfractionated Heparin Therapeutic Range: 0.3- 0.7 u/mL with continuous IV infusionPOCT-GLUCOSE [id number] 06:09:00 Test Item Value Reference Range Interpretation Comments POC-GLUCOSE METER 143 mg/dL 70-110 H TESTED AT [facility] 6720 ([facility]) (test code = [place] 1538) [address] RAD, CHEST, 1 VIEW, NON [id number] 04:43:00Reason for exam:->acute respiratory insufficiencyShould this be [...] MDReport Verified Date/Time: 01/17/2018 04:43:34 Reading Location: [facility] [id number] Body Reading Room OXYGEN SATURATION, [id number] 04:13:00 Test Item Value Reference Range Interpretation Comments O2 SATURATION (MEASURED) (BEAKER) 85.7 % (test code = 1455) [id number] 04:06:00 Test Item Value Reference Range Interpretation Comments PHOSPHORUS (BEAKER) (test code = 3.1 mg/dL 2.3-4.7 604) [id number] 04:06:00 Test Item Value Reference Range Interpretation Comments MAGNESIUM (BEAKER) (test code = 2.1 mg/dL 1.6-2.6 627) COMPREHENSIVE METABOLIC [id number] 04:06:00 Test Item Value Reference Range Interpretation [...] DIALYSIS PATIEN TS. Specimen moderately ictericHEPATIC FUNCTION [id number] 04:06:00 Test Item Value Reference Range Interpretation [...] 347) Specimen moderately ictericLACTIC ACID, ARTERIAL, WHOLE [id number] 03:59:00 Test Item Value Reference Range Interpretation Comments LACTATE BLOOD 0.5 mmol/L 0.5-2.2 Specimen sligh tly ARTERIAL (2) (BEAKER) hemoly zed (test code = 2874) Effective 01/04/2016: Units/Reference Range ChangeNew: 0.5-2.2 mmol/L Previous: 5-20 mg/dLSpecimen moderately ictericBLOOD GAS, [id number] 03:58:00 Test Item Value Reference Range Interpretation [...] (test code = 1819) 40.0 % CALCIUM, [id number] 03:58:00 Test Item Value Reference Range Interpretation Comments CALCIUM IONIZED (BEAKER) (test 1.14 mmol/L 1.12-1.27 code = 698) PH, BLOOD (BEAKER) (test code = 7.41 1810) POCT-GLUCOSE [id number] 02:41:00 Test Item Value Reference Range Interpretation Comments POC-GLUCOSE METER 144 mg/dL 70-110 H TESTED AT [place] [address] ([facility]) (test code = [place] 1538) [address] POCT-GLUCOSE [id number] 00:30:00 Test Item Value Reference Range Interpretation Comments POC-GLUCOSE METER 171 mg/dL 70-110 H TESTED AT [place] [address] ([facility]) (test code = [place] 1538) [address] POTASSIUM-STAT [id number] 00:08:00 Test Item Value Reference Range Interpretation Comments POTASSIUM (BEAKER) (test code = 4.5 meq/L 3.6-5.5 379) POCT-GLUCOSE [id number] 23:30:00 Test Item Value Reference Range Interpretation Comments POC-GLUCOSE METER 159 mg/dL 70-110 H TESTED AT [place] [address] ([facility]) (test code = [place] Paul [facility] 1538) [address] POCT-GLUCOSE [id number] 21:08:00 Test Item Value Reference Range Interpretation Comments POC-GLUCOSE METER 194 mg/dL 70-110 H TESTED AT [place] [address] ([facility]) (test code = [place] [facility] 1538) [address] POCT-GLUCOSE [id number] 21:08:00 Test Item Value Reference Range Interpretation Comments POC-GLUCOSE METER 230 mg/dL 70-110 H TESTED AT [place] [address] ([facility]) (test code = [place] Paul [facility] 1538) [address] CALCIUM, [id number] 19:23:00 Test Item Value Reference Range Interpretation Comments CALCIUM IONIZED (BEAKER) (test 1.14 mmol/L 1.12-1.27 code = 698) PH, BLOOD (BEAKER) (test code = 7.36 1810) POTASSIUM-STAT [id number] 19:23:00 Test Item Value Reference Range Interpretation Comments POTASSIUM (BEAKER) (test code = 5.1 meq/L 3.6-5.5 379) [id number] 17:27:00 Test Item Value Reference Range Interpretation Comments PHOSPHORUS (BEAKER) (test code = 2.2 mg/dL 2.3-4.7 L 604) [id number] 17:27:00 Test Item Value Reference Range Interpretation Comments MAGNESIUM (BEAKER) (test code = 2.1 mg/dL 1.6-2.6 627) PH, [id number] 17:03:00 Test Item Value Reference Range Interpretation Comments PH ARTERIAL (BEAKER) (test code = 383) 7.39 7.35-7.45 POCT-GLUCOSE [id number] 16:43:00 Test Item Value Reference Range Interpretation Comments POC-GLUCOSE METER 95 mg/dL 70-110 TESTED AT [place] [address] ([facility]) (test code = [place] [facility] [address] 1538) POCT-GLUCOSE [id number] 14:41:00 Test Item Value Reference Range Interpretation Comments POC-GLUCOSE METER 134 mg/dL 70-110 H TESTED AT [place] [address] ([facility]) (test code = [facility] 1538) [address] RAD, ABDOMEN/KUB, 1 VIEW [id number] 13:16:00Reason for exam:- >constipationShould this be performed [...] No acute osseous abnormality. Signed: Kay Walter [facility] Verified Date/Time: 01/16/2018 13:16:27 Reading Location: [facility] Mammo Reading Room Electronically signed by: KAY WALTER on01/16/2018 01:16 PMCALCIUM, [id number] 12:38:00 Test Item Value Reference Range Interpretation Comments CALCIUM IONIZED (BEAKER) (test 1.14 mmol/L 1.12-1.27 code = 698) PH, BLOOD (BEAKER) (test code = 7.40 1810) POCT-GLUCOSE [id number] 12:29:00 Test Item Value Reference Range Interpretation Comments POC-GLUCOSE METER 127 mg/dL 70-110 H TESTED AT [place] [address] ([facility]) (test code = [place] Paul [facility] 1538) [address] POCT-GLUCOSE [id number] 10:34:00 Test Item Value Reference Range Interpretation Comments POC-GLUCOSE METER 130 mg/dL 70-110 H TESTED AT [place] [address] ([facility]) (test code = [place] Paul [facility] 1538) [address] POCT-GLUCOSE [id number] 09:10:00 Test Item Value Reference Range Interpretation Comments POC-GLUCOSE METER 151 mg/dL 70-110 H TESTED AT [place] [address] ([facility]) (test code = [facility] Humberto [facility] 1538) [address] HEPARIN ASSAY - [id number] 09:00:00 Test Item Value Reference Range Interpretation Comments UNFRACTIONATED HEPARIN-ANTI 10A < u/ml 0.30-0.70 L ([facility]) (test code = 1606) Recommendations for Monitoring [...] H (test code = 413) OXYGEN SATURATION, [id number] 08:30:00 Test Item Value Reference Range Interpretation Comments O2 SATURATION (MEASURED) (AKER) 87.1 % (test code = 1455) RAD, CHEST, 1 VIEW, NON [id number] 08:11:00Reason for exam:->acute respiratory insufficiencyShould this be performed at the bedside?->YesFINAL REPORT CLINICAL HISTORY: acute respiratory insufficiency TECHNIQUE: 1 view of the chest. COMPARISON: 01/15/2018 IMPRESSION: The [place]-Moni catheter has been removed. The supporting lines and tubes are otherwise unchanged. There is no pneumothorax. Mild bilateral perihilar lung opacities have decreased. The cardiomediastinal silhouette is magnified by technique with sternotomy wires. Signed: Lorna Slade MDReport Verified Date/Time: 01/16/2018 08:11:02 Reading Location: [facility] Radiology Reading Room POCT- GLUCOSE [id number] 06:43:00 Test Item Value Reference Range Interpretation Comments POC-GLUCOSE METER 107 mg/dL 70-110 TESTED AT [facility] 6720 ([facility]) (test code = [place] 1538) [address] U/S, ABDOMINAL, [id number] 05:25:00Abdomen limited area? Add comment if clarification [...] MDReport Verified Date/Time: 01/16/2018 05:25:06 Reading Location: [facility] [address] CT Body Reading Room IC ACID, ARTERIAL, WHOLE [id number] 04:06:00 Test Item Value Reference Range Interpretation Comments LACTATE BLOOD ARTERIAL (2) 0.6 mmol/L 0.5-2.2 (BEAKER) (test code = 2874) Effective 01/04/2016: Units/Reference Range ChangeNew: 0.5-2.2 mmol/L Previous: 5-20 mg/dLSpecimen moderately [id number] 04:00:00 Test Item Value Reference Range Interpretation Comments PHOSPHORUS (BEAKER) (test code = 2.2 mg/dL 2.3-4.7 L 604) [id number] 04:00:00 Test Item Value Reference Range Interpretation Comments MAGNESIUM (BEAKER) (test code = 2.0 mg/dL 1.6-2.6 627) [id number] 04:00:00 Test Item Value Reference Range Interpretation Comments CALCIUM (BEAKER) (test code = 697) 8.5 mg/dL 8.4-10.2 COMPREHENSIVE METABOLIC [id number] 04:00:00 Test Item Value Reference Range Interpretation [...] DIALYSIS PATIEN TS. Specimen moderately ictericHEPATIC FUNCTION [id number] 04:00:00 Test Item Value Reference Range Interpretation [...] 6-55 H 347) Specimen moderately ictericBLOOD GAS, [id number] 03:51:00 Test Item Value Reference Range Interpretation [...] (test code = 1819) 60.0 % PROTHROMBIN TIME/[id number] 03:51:00 Test Item Value Reference Range Interpretation Comments PROTIME (BEAKER) (test code = 15.2 seconds 11.7-14.7 H 759) INR (BEAKER) (test code = 370) 1.2 <=5.9 RECOMMENDED COUMADIN/WARFARIN INR THERAPY RANGESSTANDARD DOSE: 2.0 - 3.0 Includes: PROPHYLAXIS forvenous thrombosis, systemic embolization; TREATMENT for venous thrombosis and/or pulmonary embolus.HIGH RISK: Target INR is 2.5-3.5 for patients with mechanical heart valves.CALCIUM, [id number] 03:51:00 Test Item Value Reference Range Interpretation Comments CALCIUM IONIZED (BEAKER) (test 1.17 mmol/L 1.12-1.27 code = 698) PH, BLOOD (BEAKER) (test code = 7.42 1810) POCT-GLUCOSE [id number] 02:08:00 Test Item Value Reference Range Interpretation Comments POC-GLUCOSE METER 110 mg/dL 70-110 TESTED AT [place] [address] ([facility]) (test code = [place] 1538) [address] POCT-GLUCOSE [id number] 01:14:00 Test Item Value Reference Range Interpretation Comments POC-GLUCOSE METER 107 mg/dL 70-110 TESTED AT [place] [address] ([facility]) (test code = [place] Paul [place] 1538) [address] POCT-GLUCOSE [id number] 00:29:00 Test Item Value Reference Range Interpretation Comments POC-GLUCOSE METER 129 mg/dL 70-110 H TESTED AT [place] [address] ([facility]) (test code = F[place]ER Paul [facility] 1538) [address] POCT-GLUCOSE [id number] 23:07:00 Test Item Value Reference Range Interpretation Comments POC-GLUCOSE METER 152 mg/dL 70-110 H TESTED AT [place] [address] ([facility]) (test code = F[place]ER Paul [facility] 1538) [address] POCT-GLUCOSE [id number] 22:09:00 Test Item Value Reference Range Interpretation Comments POC-GLUCOSE METER 171 mg/dL 70-110 H TESTED AT [place] [address] ([facility]) (test code = F[place]ER Paul [facility] 1538) [address] POCT-GLUCOSE [id number] 21:13:00 Test Item Value Reference Range Interpretation Comments POC-GLUCOSE METER 171 mg/dL 70-110 H TESTED AT [place] [address] ([facility]) (test code = FOSTER Paul [facility] 1538) [address] CALCIUM, [id number] 20:50:00 Test Item Value Reference Range Interpretation Comments CALCIUM IONIZED ([facility]) (test 1.15 mmol/L 1.12-1.27 code = 698) PH, BLOOD ([facility]) (test code = 7.34 1810) POCT-GLUCOSE [id number] 20:21:00 Test Item Value Reference Range Interpretation Comments POC-GLUCOSE METER 206 mg/dL 70-110 H TESTED AT [place] [address] ([facility]) (test code = FOSTER Paul [facility] 1538) [address]344 POCT-GLUCOSE [id number] 19:16:00 Test Item Value Reference Range Interpretation Comments POC-GLUCOSE METER 197 mg/dL 70-110 H TESTED AT [place] [address] ([facility]) (test code = [facility] 1538) [address] [id number] 17:15:00 Test Item Value Reference Range Interpretation Comments PHOSPHORUS ([facility]) (test code = 4.1 mg/dL 2.3-4.7 604) [id number] 17:15:00 Test Item Value Reference Range Interpretation Comments MAGNESIUM ([facility]) (test code = 1.9 mg/dL 1.6-2.6 627) EEG AWAKE AND [id number] 14:56:00For STAT EEG- after 5 PM weekdays, weekends and holidays, page the on-call EEG TechReason for exam:->AMSShould this be performed at the bedside?->YesDate(s) of EE01/15/2018DATE OF REPORT: 01/15/2018ACC: [id number] Number: [id number] Location: Inpatient ICUStart time: 13:18Stop time: 13:40ICD-10: R41.82CPT Code: 09683 HISTORY: 62 y/o man with hxof AFib, [...] Kwon MD, MSClinic al Neurophysiology/Epilepsy Attending HEPARIN [id number] 13:21:00 Test Item Value Reference Range Interpretation Comments HEPARIN ANTIBODY (BEAKER) (test code Negative Negative = 646) HEPARIN ANTIBODY OD (BEAKER) (test 0.076 <0.400 code = 2659) 4T TOTAL SCORE ([facility]) (test code = 5 6374) Probability of HIT based on scoring system: 6-8 = High probability; 4-5 = intermediate probability;0-3 = low probabilityPOCT-GLUCOSE [id number] 12:26:00 Test Item Value Reference Range Interpretation Comments POC-GLUCOSE METER 128 mg/dL 70-110 H TESTED AT [facility] 6720 ([facility]) (test code = [place] 1538) [address] FIBRIN SOLUBLE [id number] 11:02:00 Test Item Value Reference Range Interpretation Comments FIBRIN SOLUBLE MONOMER (BEAKER) Negative (test code = 1416) HEPARIN ASSAY - [id number] 10:20:00 Test Item Value Reference Range Interpretation Comments UNFRACTIONATED HEPARIN-ANTI 10A < u/ml 0.30-0.70 L ([facility]) (test code = 1606) Recommendations for Monitoring Unfractionated Heparin Therapeutic Range: 0.3- 0.7 u/mL with continuous IV [id number] 10:14:00 Test Item Value Reference Range Interpretation Comments D-DIMER QUANTITATIVE (AKER) 3.76 MG/L FEU <0.50 H (test code [...] of thrombosis is within 95-100% range. GLUCOSE-STAT [id number] 10:03:00 Test Item Value Reference Range Interpretation Comments GLUCOSE RANDOM (BEAKER) (test code 151 mg/dL 70-110 H = 652) CALCIUM, [id number] 10:02:00 Test Item Value Reference Range Interpretation Comments CALCIUM IONIZED (BEAKER) (test 1.13 mmol/L 1.12-1.27 code = 698) PH, BLOOD (BEAKER) (test code = 7.36 7168) POTASSIUM-STAT [id number] 10:01:00 Test Item Value Reference Range Interpretation Comments POTASSIUM (BEAKER) (test code = 4.3 meq/L 3.6-5.5 379) CBC W/PLT COUNT & AUTO [id number] 07:43:00 Test Item Value Reference Range Interpretation [...] = 2801) RAD, CHEST, 1 VIEW, NON [id number] 04:00:00Reason for exam:->acute respiratory insufficiencyShould this be performed at the bedside?->Yes Addendum BeginsREPORT STATUS:A Correction: Comparison is made to previous dated 01/14/2018. Signed: Kellen Parraeport Verified Date/Time: 01/15/2018 04:00:43 Reading Location: [address] Reading RoomAddendum EndsFINAL REPORT CLINICAL ADEEL CATION: Respiratory insufficiency Comparison: 01/15/2018 The cardiomediastinal contours are stable. Central pulmonary vascular congestion and bilateral parenchymal opacities are unchanged. There is no pneumothorax. Support lines are stable. Signed: Kellen Parraort Verified Date/Time: 01/15/201803:46:27 Reading Location: [address] Reading Room [id number] 03:36:00 Test Item Value Reference Range Interpretation Comments PHOSPHORUS (BEAKER) (test code = 2.7 mg/dL 2.3-4.7 604) [id number] 03:36:00 Test Item Value Reference Range Interpretation Comments MAGNESIUM (BEAKER) (test code = 2.0 mg/dL 1.6-2.6 627) COMPREHENSIVE METABOLIC [id number] 03:36:00 Test Item Value Reference Range Interpretation [...] DIALYSIS PATIEN TS. Specimen slightly ictericHEPATIC FUNCTION [id number] 03:36:00 Test Item Value Reference Range Interpretation [...] U/L 6-55 H 347) Specimen slightly ictericPROTHROMBIN [id number] 03:35:00 Test Item Value Reference Range Interpretation [...] mmol/L Previous: 5-20 mg/dLSpecimen slightly ictericBLOOD GAS, [id number] 03:29:00 Test Item Value Reference Range Interpretation [...] code = 1819) 40.0 % OXYGEN SATURATION, [id number] 03:26:00 Test Item Value Reference Range Interpretation Comments O2 SATURATION (MEASURED) (BEAKER) 72.5 % (test code = 1455) CALCIUM, [id number] 00:17:00 Test Item Value Reference Range Interpretation Comments CALCIUM IONIZED (BEAKER) (test 1.19 mmol/L 1.12-1.27 code = 698) PH, BLOOD (BEAKER) (test code = 7.36 1810) POCT-GLUCOSE [id number] 00:15:00 Test Item Value Reference Range Interpretation Comments POC-GLUCOSE METER 144 mg/dL 70-110 H TESTED AT [facility] 6720 (BEAKER) (test code = FOSTER Paul [facility] 1538) [address] POCT-GLUCOSE [id number] 22:43:00 Test Item Value Reference Range Interpretation Comments POC-GLUCOSE METER 98 mg/dL 70-110 TESTED AT [facility] 6720 ([facility]) (test code = FOSTER Paul [facility] [address] 1538) POCT-GLUCOSE [id number] 22:43:00 Test Item Value Reference Range Interpretation Comments POC-GLUCOSE METER 80 mg/dL 70-110 TESTED AT [facility] 67 ([facility]) (test code = FOSTER Paul [facility] [address] 1538) VANCOMYCIN LEVEL, [id number] 20:20:00 Test Item Value Reference Range Interpretation Comments VANCOMYCIN TROUGH (BEAKER) (test 20.1 ug/mL 10.0-20.0 H code = 522) Before vanc [id number] 16:52:00 Test Item Value Reference Range Interpretation Comments PHOSPHORUS (BEAKER) (test code = 1.7 mg/dL 2.3-4.7 L 604) [id number] 16:52:00 Test Item Value Reference Range Interpretation Comments MAGNESIUM (BEAKER) (test code = 2.3 mg/dL 1.6-2.6 627) [id number] 16:39:00 Test Item Value Reference Range Interpretation Comments AMMONIA (BEAKER) (test code = 348) 32 mol/L 18-72 PH, [id number] 16:01:00 Test Item Value Reference Range Interpretation Comments PH ARTERIAL (BEAKER) (test code = 383) 7.42 7.35-7.45 GLUCOSE-STAT [id number] 16:01:00 Test Item Value Reference Range Interpretation Comments GLUCOSE RANDOM (BEAKER) (test code = 95 mg/dL 70-110 652) POTASSIUM-STAT [id number] 16:01:00 Test Item Value Reference Range Interpretation Comments POTASSIUM (BEAKER) (test code = 4.3 meq/L 3.6-5.5 379) CALCIUM, [id number] 16:01:00 Test Item Value Reference Range Interpretation Comments CALCIUM IONIZED (BEAKER) (test 1.28 mmol/L 1.12-1.27 H code = 698) PH, BLOOD (BEAKER) (test code = 7.42 1810) CALCIUM, [id number] 12:19:00 Test Item Value Reference Range Interpretation Comments CALCIUM IONIZED (BEAKER) (test 1.36 mmol/L 1.12-1.27 H code = 698) PH, BLOOD (BEAKER) (test code = 7.41 1810) GLUCOSE-STAT [id number] 12:17:00 Test Item Value Reference Range Interpretation Comments GLUCOSE RANDOM (BEAKER) (test code = 94 mg/dL 70-110 652) POTASSIUM-STAT [id number] 12:17:00 Test Item Value Reference Range Interpretation Comments POTASSIUM (BEAKER) (test code = 4.3 meq/L 3.6-5.5 379) [id number] 11:34:00 Test Item Value Reference Range Interpretation Comments MAGNESIUM (BEAKER) (test code = 2.1 mg/dL 1.6-2.6 627) BASIC METABOLIC [id number] 11:34:00 Test Item Value Reference Range Interpretation [...] DIALYSIS PATIEN TS. Specimen slightly ictericHEPATIC FUNCTION [id number] 11:34:00 Test Item Value Reference Range Interpretation [...] 6-55 H 347) Specimen slightly ictericBLOOD GAS, [id number] 09:44:00 Test Item Value Reference Range Interpretation [...] (test code = 1819) 100.0 % GLUCOSE-STAT [id number] 09:42:00 Test Item Value Reference Range Interpretation Comments GLUCOSE RANDOM (BEAKER) (test code = 95 mg/dL 70-110 652) POTASSIUM-STAT [id number] 09:42:00 Test Item Value Reference Range Interpretation Comments POTASSIUM (BEAKER) (test code = 4.5 meq/L 3.6-5.5 379) CALCIUM, [id number] 09:38:00 Test Item Value Reference Range Interpretation Comments CALCIUM IONIZED (BEAKER) (test 1.26 mmol/L 1.12-1.27 code = 698) PH, BLOOD (BEAKER) (test code = 7.41 1810) HEPARIN ASSAY - [id number] 08:44:00 Test Item Value Reference Range Interpretation Comments UNFRACTIONATED HEPARIN-ANTI 10A < u/ml 0.30-0.70 L (BEAKER) (test code = 1606) Recommendations for Monitoring Unfractionated Heparin Therapeutic Range: 0.3- 0.7 u/mL with continuous IV infusionGLUCOSE-STAT [id number] 06:41:00 Test Item Value Reference Range Interpretation [...] (test 0.0 % 0.0-5.0 code = 1414) [id number] 05:05:00 Test Item Value Reference Range Interpretation Comments PHOSPHORUS (BEAKER) (test code = 2.5 mg/dL 2.3-4.7 604) [id number] 05:05:00 Test Item Value Reference Range Interpretation Comments MAGNESIUM (BEAKER) (test code = 2.1 mg/dL 1.6-2.6 627) HEPATIC FUNCTION [id number] 05:05:00 Test Item Value Reference Range Interpretation [...] 1266 U/L 6-55 H 347) Specimen slightly [id number] 05:05:00 Test Item Value Reference Range Interpretation Comments CALCIUM (BEAKER) (test code = 697) 9.0 mg/dL 8.4-10.2 LACTATE DEHYDROGENASE (LDH)2018-01-14 05:05:00 Test Item Value Reference Range Interpretation Comments LACTATE DEHYDROGENASE (BEAKER) (test 667 U/L 125-220 H code = 635) PROTHROMBIN [id number] 05:05:00 Test Item Value Reference Range Interpretation Comments PROTIME (BEAKER) (test code = 15.2 seconds 11.7-14.7 H 759) INR (BEAKER) (test code = 370) 1.2 <=5.9 RECOMMENDED COUMADIN/WARFARIN INR THERAPY RANGESSTANDARD DOSE: 2.0 - 3.0 Includes: PROPHYLAXIS forvenous thrombosis, systemic embolization; TREATMENT for venous thrombosis and/or pulmonary embolus.HIGH RISK: Target INR is 2.5-3.5 for patients with mechanical heart valves.[id number] 05:05:00 Test Item Value Reference Range Interpretation Comments FIBRINOGEN LEVEL (BEAKER) (test 280 mg/dl 225-434 code = 658) RAD, CHEST, 1 VIEW, NON [id number] 04:57:00Reason for exam:- >impella/ECMO/intubationShould this be performed at the bedside?->YesFINAL REPORT CLINICAL INDICATION: Support lines. Comparison: 01/13/2018 The cardiomediastinal contours are stable. Cardiac opacities may reflect atelectasis but pneumonitis should be excluded clinically. There is no pneumothorax. Support lines are stable. Signed: Kellen Parra MDReport Verified Date/Time: 01/14/2018 04:57:02 Reading Location: [address] Reading Room LACTIC ACID, ARTERIAL, WHOLE [id number] 04:55:00 Test Item Value Reference Range Interpretation [...] H (BEAKER) (test code = 413) CALCIUM, [id number] 04:39:00 Test Item Value Reference Range Interpretation Comments CALCIUM IONIZED (BEAKER) (test 1.20 mmol/L 1.12-1.27 code = 698) PH, BLOOD (BEAKER) (test code = 7.37 1810) OXYGEN SATURATION, [id number] 04:38:00 Test Item Value Reference Range Interpretation Comments O2 SATURATION (MEASURED) (BEAKER) 75.3 % (test code = 1455) BLOOD GAS, [id number] 04:37:00 Test Item Value Reference Range Interpretation [...] (test code = 1819) 40.0 % GLUCOSE-STAT [id number] 04:37:00 Test Item Value Reference Range Interpretation Comments GLUCOSE RANDOM (BEAKER) (test code 154 mg/dL 70-110 H = 652) GLUCOSE-STAT [id number] 02:52:00 Test Item Value Reference Range Interpretation Comments GLUCOSE RANDOM (BEAKER) (test code 179 mg/dL 70-110 H = 652) GLUCOSE-STAT [id number] 01:26:00 Test Item Value Reference Range Interpretation Comments GLUCOSE RANDOM (BEAKER) (test code 195 mg/dL 70-110 H = 652) [id number] 00:08:00 Test Item Value Reference Range Interpretation Comments POTASSIUM (BEAKER) (test code = 4.2 meq/L 3.5-5.1 379) [id number] 00:08:00 Test Item Value Reference Range Interpretation Comments GLUCOSE RANDOM (BEAKER) (test code 237 mg/dL 70-105 H = 652) CBC W/PLT COUNT & AUTO [id number] 22:28:00 Test Item Value Reference Range Interpretation [...] = 413) RAD, CHEST, 1 VIEW, NON [id number] 21:50:00Reason for exam:->chest tubes/intubationShould this be performed [...] MDReport Verified Date/Time: 01/13/2018 21:50:50 Reading Location: [facility] C0[facility] Consult Reading Room THROMBOELASTOGRAPH (TEG)2018-01-13 21:45:00 Test [...] % 0.0-5.0 code = 1414) BASIC METABOLIC [id number] 21:35:00 Test Item Value Reference Range Interpretation [...] APPLICABLE FOR DIALYSIS PATIEN TS. Specimen slightly [id number] 21:06:00 Test Item Value Reference Range Interpretation Comments PHOSPHORUS (BEAKER) (test code = 3.7 mg/dL 2.3-4.7 604) [id number] 21:06:00 Test Item Value Reference Range Interpretation Comments MAGNESIUM (BEAKER) (test code = 2.0 mg/dL 1.6-2.6 627) LACTIC ACID, ARTERIAL, WHOLE [id number] 21:06:00 Test Item Value Reference Range Interpretation Comments LACTATE BLOOD ARTERIAL (2) 1.8 mmol/L 0.5-2.2 (BEAKER) (test code = 2874) Effective 01/04/2016: Units/Reference Range ChangeNew: 0.5-2.2 mmol/L Previous: 5-20 mg/dLSpecimen slightly [id number] 21:01:00 Test Item Value Reference Range Interpretation Comments PARTIAL THROMBOPLASTIN TIME 35.1 seconds 22.5-36.0 (BEAKER) (test code = 760) [id number] 21:00:00 Test Item Value Reference Range Interpretation Comments FIBRINOGEN LEVEL (BEAKER) (test 253 mg/dl 225-434 code = 658) PROTHROMBIN [id number] 20:59:00 Test Item Value Reference Range Interpretation Comments PROTIME (BEAKER) (test code = 16.4 seconds 11.7-14.7 H 759) INR (BEAKER) (test code = 370) 1.3 <=5.9 RECOMMENDED COUMADIN/WARFARIN INR THERAPY RANGESSTANDARD DOSE: 2.0 - 3.0 Includes: PROPHYLAXIS forvenous thrombosis, systemic embolization; TREATMENT for venous thrombosis and/or pulmonary embolus.HIGH RISK: Target INR is 2.5-3.5 for patients with mechanical heart valves.BLOOD GAS, [id number] 20:47:00 Test Item Value Reference Range Interpretation [...] (test code = 1819) 40.0 % GLUCOSE-STAT [id number] 20:47:00 Test Item Value Reference Range Interpretation Comments GLUCOSE RANDOM (BEAKER) (test code 235 mg/dL 70-110 H = 652) CALCIUM, [id number] 20:47:00 Test Item Value Reference Range Interpretation Comments CALCIUM IONIZED (BEAKER) (test 0.97 mmol/L 1.12-1.27 L code = 698) PH, BLOOD (BEAKER) (test code = 7.39 1810) HGB/HCT (H&H) - STAT [id number] 20:46:00 Test Item Value Reference Range Interpretation Comments HEMOGLOBIN (BEAKER) (test code = 7.7 g/dL 13.0-16.8 L 410) HEMATOCRIT (BEAKER) (test code = 23.0 % 40.0-50.0 L 411) POTASSIUM-STAT [id number] 20:46:00 Test Item Value Reference Range Interpretation Comments POTASSIUM (BEAKER) (test code = 3.4 meq/L 3.6-5.5 L 379) SODIUM NA-STAT [id number] 20:46:00 Test Item Value Reference Range Interpretation Comments SODIUM (BEAKER) (test code = 381) 133 meq/L 135-148 L OXYGEN SATURATION, [id number] 20:42:00 Test Item Value Reference Range Interpretation Comments O2 SATURATION (MEASURED) (BEAKER) 74.1 % (test code = 1455) BLOOD GAS, [id number] 18:58:00 Test Item Value Reference Range Interpretation [...] code = 1819) 100.0 % SODIUM NA-STAT [id number] 18:58:00 Test Item Value Reference Range Interpretation Comments SODIUM (BEAKER) (test code = 381) 131 meq/L 135-148 L POTASSIUM-STAT [id number] 18:58:00 Test Item Value Reference Range Interpretation Comments POTASSIUM (BEAKER) (test code = 3.4 meq/L 3.6-5.5 L 379) GLUCOSE-STAT [id number] 18:58:00 Test Item Value Reference Range Interpretation Comments GLUCOSE RANDOM (BEAKER) (test code 214 mg/dL 70-110 H = 652) HGB/HCT (H&H) - STAT [id number] 18:58:00 Test Item Value Reference Range Interpretation [...] % 0.0-5.0 code = 1414) BLOOD GAS, [id number] 18:11:00 Test Item Value Reference Range Interpretation [...] code = 1819) 97.0 % SODIUM NA-STAT [id number] 18:11:00 Test Item Value Reference Range Interpretation Comments SODIUM (BEAKER) (test code = 381) 132 meq/L 135-148 L GLUCOSE-STAT [id number] 18:11:00 Test Item Value Reference Range Interpretation Comments GLUCOSE RANDOM (BEAKER) (test code 200 mg/dL 70-110 H = 652) HGB/HCT (H&H) - STAT [id number] 18:11:00 Test Item Value Reference Range Interpretation Comments HEMOGLOBIN (BEAKER) (test code = 8.2 g/dL 13.0-16.8 L 410) HEMATOCRIT (BEAKER) (test code = 24.0 % 40.0-50.0 L 411) POTASSIUM-STAT [id number] 18:07:00 Test Item Value Reference Range Interpretation Comments POTASSIUM (BEAKER) (test code = 3.5 meq/L 3.6-5.5 L 379) [id number] 16:37:00 Test Item Value Reference Range Interpretation Comments PHOSPHORUS (BEAKER) (test code = 2.5 mg/dL 2.3-4.7 604) [id number] 16:37:00 Test Item Value Reference Range Interpretation Comments MAGNESIUM (BEAKER) (test code = 2.1 mg/dL 1.6-2.6 627) [id number] 16:29:00 Test Item Value Reference Range Interpretation [...] for patients with mechanical heart valves.BLOOD GAS, [id number] 16:16:00 Test Item Value Reference Range Interpretation [...] (test code = 1819) 40.0 % CALCIUM, [id number] 16:14:00 Test Item Value Reference Range Interpretation Comments CALCIUM IONIZED (BEAKER) (test 1.09 mmol/L 1.12-1.27 L code = 698) PH, BLOOD (BEAKER) (test code = 7.64 1810) GLUCOSE-STAT [id number] 16:12:00 Test Item Value Reference Range Interpretation Comments GLUCOSE RANDOM (BEAKER) (test code 182 mg/dL 70-110 H = 652) CALCIUM, [id number] 12:53:00 Test Item Value Reference Range Interpretation Comments CALCIUM IONIZED (BEAKER) (test 1.12 mmol/L 1.12-1.27 code = 698) PH, BLOOD (BEAKER) (test code = 7.51 1810) BLOOD GAS, [id number] 12:53:00 Test Item Value Reference Range Interpretation [...] 1819) 40.0 % HGB/HCT (H&H) - STAT [id number] 12:53:00 Test Item Value Reference Range Interpretation Comments HEMOGLOBIN (BEAKER) (test code = 8.3 g/dL 13.0-16.8 L 410) HEMATOCRIT (BEAKER) (test code = 24.0 % 40.0-50.0 L 411) GLUCOSE-STAT [id number] 12:53:00 Test Item Value Reference Range Interpretation Comments GLUCOSE RANDOM (BEAKER) (test code 185 mg/dL 70-110 H = 652) POTASSIUM-STAT [id number] 12:52:00 Test Item Value Reference Range Interpretation Comments POTASSIUM (BEAKER) (test code = 3.7 meq/L 3.6-5.5 379) CBC W/PLT COUNT & AUTO [id number] 11:04:00 Test Item Value Reference Range Interpretation [...] 0-0 H (test code = 413) POTASSIUM-STAT [id number] 10:49:00 Test Item Value Reference Range Interpretation Comments POTASSIUM (BEAKER) (test code = 3.8 meq/L 3.6-5.5 379) HEPARIN ASSAY - [id number] 09:55:00 Test Item Value Reference Range Interpretation Comments UNFRACTIONATED HEPARIN-ANTI 10A 0.14 u/ml 0.30-0.70 L (BEAKER) (test code = 1606) Recommendations for Monitoring Unfractionated Heparin Therapeutic Range: 0.3- 0.7 u/mL with continuous IV [id number] 09:54:00 Test Item Value Reference Range Interpretation Comments PARTIAL THROMBOPLASTIN TIME 57.6 seconds 22.5-36.0 H (BEAKER) (test code = 760) BLOOD GAS, [id number] 09:33:00 Test Item Value Reference Range Interpretation [...] (test code = 1819) 40.0 % GLUCOSE-STAT [id number] 09:33:00 Test Item Value Reference Range Interpretation Comments GLUCOSE RANDOM (BEAKER) (test code 192 mg/dL 70-110 H = 652) GLUCOSE-STAT [id number] 09:33:00 Test Item Value Reference Range Interpretation Comments GLUCOSE RANDOM (BEAKER) (test code 192 mg/dL 70-110 H = 652) CALCIUM, [id number] 09:32:00 Test Item Value Reference Range Interpretation Comments CALCIUM IONIZED (BEAKER) (test 1.15 mmol/L 1.12-1.27 code = 698) PH, BLOOD (BEAKER) (test code = 7.51 1810) BLOOD GAS, [id number] 07:23:00 Test Item Value Reference Range Interpretation [...] % 0.0-5.0 code = 1414) BLOOD GAS, [id number] 06:13:00 Test Item Value Reference Range Interpretation [...] code = 1819) 40.0 % BLOOD GAS, [id number] 05:13:00 Test Item Value Reference Range Interpretation [...] (BEAKER) (test code = 1819) 100.0 % [id number] 04:41:00 Test Item Value Reference Range Interpretation Comments PARTIAL THROMBOPLASTIN TIME 61.3 seconds 22.5-36.0 H (BEAKER) (test code = 760) RAD, CHEST, 1 VIEW, NON [id number] 04:38:00Reason for exam:- >impella/ECMO/intubationShould this be performed at the bedside?->YesFINAL REPORT CLINICAL INDICATION: Support lines. Comparison: 01/12/2018 The cardiomediastinal contours are stable. Central pulmonary vascular prominence and bilateral parenchymalopacities are previous. There is no pneumothorax. Support lines are stable. Signed: Kellen Parra MDReport Verified Date/Time: 01/13/2018 04:38:41 Reading Location: [address] Reading Room HEPATIC FUNCTION [id number] 04:25:00 Test Item Value Reference Range Interpretation [...] 2232 U/L 6-55 H 347) Specimen slightly [id number] 04:19:00 Test Item Value Reference Range Interpretation Comments PHOSPHORUS (BEAKER) (test code = 4.1 mg/dL 2.3-4.7 604) [id number] 04:19:00 Test Item Value Reference Range Interpretation Comments MAGNESIUM (BEAKER) (test code = 1.9 mg/dL 1.6-2.6 627) [id number] 04:19:00 Test Item Value Reference Range Interpretation Comments CALCIUM (BEAKER) (test code = 697) 8.6 mg/dL 8.4-10.2 BASIC METABOLIC [id number] 04:19:00 Test Item Value Reference Range Interpretation [...] 1658 U/L 125-220 H code = 635) [id number] 04:16:00 Test Item Value Reference Range Interpretation Comments FIBRINOGEN LEVEL (BEAKER) (test 299 mg/dl 225-434 code = 658) LACTIC ACID, ARTERIAL, WHOLE [id number] 04:16:00 Test Item Value Reference Range Interpretation Comments LACTATE BLOOD ARTERIAL (2) 0.8 mmol/L 0.5-2.2 (BEAKER) (test code = 2874) Effective 01/04/2016: Units/Reference Range ChangeNew: 0.5-2.2 mmol/L Previous: 5-20 mg/dLSpecimen slightly ictericPROTHROMBIN [id number] 04:15:00 Test Item Value Reference Range Interpretation Comments PROTIME (BEAKER) (test code = 15.8 seconds 11.7-14.7 H 759) INR (BEAKER) (test code = 370) 1.3 <=5.9 RECOMMENDED COUMADIN/WARFARIN INR THERAPY RANGESSTANDARD DOSE: 2.0 - 3.0 Includes: PROPHYLAXIS forvenous thrombosis, systemic embolization; TREATMENT for venous thrombosis and/or pulmonary embolus.HIGH RISK: Target INR is 2.5-3.5 for patients with mechanical heart valves.CALCIUM, [id number] 04:04:00 Test Item Value Reference Range Interpretation Comments CALCIUM IONIZED (BEAKER) (test 1.15 mmol/L 1.12-1.27 code = 698) PH, BLOOD (BEAKER) (test code = 7.33 1810) BLOOD GAS, [id number] 04:03:00 Test Item Value Reference Range Interpretation [...] (test code = 1819) 40.0 % PLATELET [id number] 03:58:00 Test Item Value Reference Range Interpretation Comments PLATELET COUNT (BEAKER) (test code 89 K/CU MM 150-450 L = 756) OXYGEN SATURATION, [id number] 03:57:00 Test Item Value Reference Range Interpretation Comments O2 SATURATION (MEASURED) (BEAKER) 79.4 % (test code = 1455) BLOOD GAS, [id number] 01:19:00 Test Item Value Reference Range Interpretation [...] (test code = 1819) 40.0 % GLUCOSE-STAT [id number] 01:19:00 Test Item Value Reference Range Interpretation Comments GLUCOSE RANDOM (BEAKER) (test code 177 mg/dL 70-110 H = 652) POTASSIUM-STAT [id number] 01:18:00 Test Item Value Reference Range Interpretation Comments POTASSIUM (BEAKER) (test code = 4.0 meq/L 3.6-5.5 379) CALCIUM, [id number] 01:17:00 Test Item Value Reference Range Interpretation [...] (test 0.0 % 0.0-5.0 code = 1414) [id number] 20:36:00 Test Item Value Reference Range Interpretation Comments POTASSIUM (BEAKER) (test code = 4.2 meq/L 3.5-5.1 379) [id number] 20:36:00 Test Item Value Reference Range Interpretation Comments MAGNESIUM (BEAKER) (test code = 1.8 mg/dL 1.6-2.6 627) [id number] 20:36:00 Test Item Value Reference Range Interpretation Comments PHOSPHORUS (BEAKER) (test code = 3.5 mg/dL 2.3-4.7 604) LACTIC ACID, ARTERIAL, WHOLE [id number] 20:33:00 Test Item Value Reference Range Interpretation Comments LACTATE BLOOD ARTERIAL (2) 0.8 mmol/L 0.5-2.2 (BEAKER) (test code = 2874) Effective 01/04/2016: Units/Reference Range ChangeNew: 0.5-2.2 mmol/L Previous: 5-20 mg/dLSpecimen slightly ictericBLOOD GAS, [id number] 20:20:00 Test Item Value Reference Range Interpretation [...] (test code = 1819) 40.0 % GLUCOSE-STAT [id number] 20:20:00 Test Item Value Reference Range Interpretation Comments GLUCOSE RANDOM (BEAKER) (test code 180 mg/dL 70-110 H = 652) [id number] 18:34:00 Test Item Value Reference Range Interpretation Comments GLUCOSE RANDOM (BEAKER) (test code 218 mg/dL 70-105 H = 652) BLOOD GAS, [id number] 18:18:00 Test Item Value Reference Range Interpretation [...] (BEAKER) (test code = 1819) 40.0 % [id number] 17:12:00 Test Item Value Reference Range Interpretation Comments PARTIAL THROMBOPLASTIN TIME 54.1 seconds 22.5-36.0 H (BEAKER) (test code = 760) [id number] 17:12:00 Test Item Value Reference Range Interpretation Comments FIBRINOGEN LEVEL (BEAKER) (test 285 mg/dl 225-434 code = 658) PROTHROMBIN [id number] 17:10:00 Test Item Value Reference Range Interpretation [...] ChangeNew: 0.5-2.2 mmol/L Previous: 5-20 mg/dLSpecimen slightly [id number] 17:01:00 Test Item Value Reference Range Interpretation Comments POTASSIUM (BEAKER) (test code = 4.5 meq/L 3.5-5.1 379) [id number] 17:01:00 Test Item Value Reference Range Interpretation Comments GLUCOSE RANDOM (BEAKER) (test code 239 mg/dL 70-105 H = 652) PLATELET [id number] 16:46:00 Test Item Value Reference Range Interpretation Comments PLATELET COUNT (BEAKER) (test code 86 K/CU MM 150-450 L = 756) BLOOD GAS, [id number] 16:36:00 Test Item Value Reference Range Interpretation [...] (test 37.0 C code = 1818) CALCIUM, [id number] 16:36:00 Test Item Value Reference Range Interpretation Comments CALCIUM IONIZED (BEAKER) (test 1.08 mmol/L 1.12-1.27 L code = 698) PH, BLOOD (BEAKER) (test code = 7.46 1810) [id number] 15:00:00 Test Item Value Reference Range Interpretation Comments POTASSIUM (BEAKER) (test code = 4.7 meq/L 3.5-5.1 379) [id number] 15:00:00 Test Item Value Reference Range Interpretation Comments GLUCOSE RANDOM (BEAKER) (test code 210 mg/dL 70-105 H = 652) BLOOD GAS, [id number] 14:42:00 Test Item Value Reference Range Interpretation [...] 40.0 % RAD, CHEST, 1 VIEW, NON [id number] 14:41:00Reason for exam:->chest tube insertionFINAL REPORT CHEST [...] A prosthetic cardiac valve is present. Signed: Kya Wilkerson MDReport Verified Date/Time: 01/12/2018 14:41:22 Reading Location: [address] Transitional Reading Room MBOELASTOGRAPH (TEG)2018-01-12 12:43:00 [...] (test 0.0 % 0.0-5.0 code = 1414) [id number] 11:23:00 Test Item Value Reference Range Interpretation [...] exclusion of thrombosis is within 95-100% range. [id number] 10:10:00 Test Item Value Reference Range Interpretation Comments MAGNESIUM (BEAKER) 2.1 mg/dL 1.6-2.6 Specimen slightly (test code = 627) hemolyzed [id number] 10:10:00 Test Item Value Reference Range Interpretation Comments PHOSPHORUS (BEAKER) 4.2 mg/dL 2.3-4.7 Specimen slightly (test code = 604) hemolyzed [id number] 10:10:00 Test Item Value Reference Range Interpretation Comments POTASSIUM (BEAKER) 5.0 meq/L 3.5-5.1 Specimen slightly (test code = 379) hemolyzed [id number] 10:10:00 Test Item Value Reference Range Interpretation Comments GLUCOSE RANDOM (BEAKER) (test code 204 mg/dL 70-105 H = 652) [id number] 10:07:00 Test Item Value Reference Range Interpretation Comments FIBRINOGEN LEVEL (BEAKER) (test 251 mg/dl 225-434 code = 658) ANTITHROMBIN [id number] 10:04:00 Test Item Value Reference Range Interpretation Comments ANTITHROMBIN III ACTIVITY (BEAKER) 46.0 % 80.0-120.0 L (test code = 711) [id number] 09:58:00 Test Item Value Reference Range Interpretation Comments PARTIAL THROMBOPLASTIN TIME 59.8 seconds 22.5-36.0 H (BEAKER) (test code = 760) PROTHROMBIN [id number] 09:57:00 Test Item Value Reference Range Interpretation Comments PROTIME (BEAKER) (test code = 19.3 seconds 11.7-14.7 H 759) INR (BEAKER) (test code = 370) 1.6 <=5.9 RECOMMENDED COUMADIN/WARFARIN INR THERAPY RANGESSTANDARD DOSE: 2.0 - 3.0 Includes: PROPHYLAXIS forvenous thrombosis, systemic embolization; TREATMENT for venous thrombosis and/or pulmonary embolus.HIGH RISK: Target INR is 2.5-3.5 for patients with mechanical heart valves.PLATELET [id number] 09:49:00 Test Item Value Reference Range Interpretation Comments PLATELET COUNT (BEAKER) (test code 94 K/CU MM 150-450 L = 756) BLOOD GAS, [id number] 09:47:00 Test Item Value Reference Range Interpretation [...] (test code = 1819) 40.0 % CALCIUM, [id number] 09:46:00 Test Item Value Reference Range Interpretation Comments CALCIUM IONIZED (BEAKER) (test 1.12 mmol/L 1.12-1.27 code = 698) PH, BLOOD (BEAKER) (test code = 7.47 1810) HEPARIN ASSAY - [id number] 08:21:00 Test Item Value Reference Range Interpretation Comments UNFRACTIONATED HEPARIN-ANTI 10A < u/ml 0.30-0.70 L (BEAKER) (test code = 1606) Recommendations for Monitoring Unfractionated Heparin Therapeutic Range: 0.3- 0.7 u/mL with continuous IV infusionLACTATE DEHYDROGENASE (LDH)2018-01-12 07:40:00 Test Item Value Reference Range Interpretation Comments LACTATE DEHYDROGENASE (BEAKER) (test 3247 U/L 125-220 H code = 635) [id number] 07:38:00 Test Item Value Reference Range Interpretation Comments MAGNESIUM (BEAKER) (test code = 2.3 mg/dL 1.6-2.6 627) [id number] 07:38:00 Test Item Value Reference Range Interpretation Comments GLUCOSE RANDOM (BEAKER) (test code 217 mg/dL 70-105 H = 652) LACTIC ACID, ARTERIAL, WHOLE [id number] 07:27:00 Test Item Value Reference Range Interpretation Comments LACTATE BLOOD ARTERIAL (2) 1.4 mmol/L 0.5-2.2 (BEAKER) (test code = 2874) Effective 01/04/2016: Units/Reference Range ChangeNew: 0.5-2.2 mmol/L Previous: 5-20 mg/dLSpecimen slightly ictericGLUCOSE-STAT [id number] 06:55:00 Test Item Value Reference Range Interpretation Comments GLUCOSE RANDOM (BEAKER) (test code 212 mg/dL 70-110 H = 652) BLOOD GAS, [id number] 06:55:00 Test Item Value Reference Range Interpretation [...] (test code = 1819) 40.0 % POTASSIUM-STAT [id number] 06:52:00 Test Item Value Reference Range Interpretation Comments POTASSIUM (BEAKER) (test code = 4.8 meq/L 3.6-5.5 379) BLOOD GAS, [id number] 06:43:00 Test Item Value Reference Range Interpretation [...] 100.0 % RAD, CHEST, 1 VIEW, NON [id number] 06:14:00Reason for exam:- >impella/ECMO/intubationShould this be performed [...] There is no pneumothorax. Signed: Raz Taylor MDReport Verified Date/Time: 01/12/2018 06:14:29 Reading Location: [address] Reading Room LACTATE DEHYDROGENASE (LDH)2018-01-12 05:03:00 Test Item Value Reference Range Interpretation Comments LACTATE DEHYDROGENASE (BEAKER) (test 3014 U/L 125-220 H code = 635) HEPATIC FUNCTION [id number] 05:03:00 Test Item Value Reference Range Interpretation [...] 1544 U/L 6-55 H 347) Specimen slightly [id number] 05:01:00 Test Item Value Reference Range Interpretation Comments PHOSPHORUS (BEAKER) (test code = 5.0 mg/dL 2.3-4.7 H 604) [id number] 05:01:00 Test Item Value Reference Range Interpretation Comments MAGNESIUM (BEAKER) (test code = 2.1 mg/dL 1.6-2.6 627) [id number] 05:01:00 Test Item Value Reference Range Interpretation Comments CALCIUM (BEAKER) (test code = 697) 8.5 mg/dL 8.4-10.2 BASIC METABOLIC [id number] 05:01:00 Test Item Value Reference Range Interpretation [...] TS. Specimen slightly ictericLACTIC ACID, ARTERIAL, WHOLE [id number] 04:42:00 Test Item Value Reference Range Interpretation Comments LACTATE BLOOD ARTERIAL (2) 1.5 mmol/L 0.5-2.2 (BEAKER) (test code = 2874) Effective 01/04/2016: Units/Reference Range ChangeNew: 0.5-2.2 mmol/L Previous: 5-20 mg/dLSpecimen slightly [id number] 04:38:00 Test Item Value Reference Range Interpretation Comments FIBRINOGEN LEVEL (BEAKER) (test 252 mg/dl 225-434 code = 658) [id number] 04:38:00 Test Item Value Reference Range Interpretation Comments PARTIAL THROMBOPLASTIN TIME 54.6 seconds 22.5-36.0 H (BEAKER) (test code = 760) CBC W/PLT COUNT & AUTO [id number] 04:37:00 Test Item Value Reference Range Interpretation [...] PERCENT (BEAKER) (test code = 2801) PROTHROMBIN [id number] 04:37:00 Test Item Value Reference Range Interpretation Comments PROTIME (BEAKER) (test code = 19.9 seconds 11.7-14.7 H 759) INR (BEAKER) (test code = 370) 1.7 <=5.9 RECOMMENDED COUMADIN/WARFARIN INR THERAPY RANGESSTANDARD DOSE: 2.0 - 3.0 Includes: PROPHYLAXIS forvenous thrombosis, systemic embolization; TREATMENT for venous thrombosis and/or pulmonary embolus.HIGH RISK: Target INR is 2.5-3.5 for patients with mechanical heart valves.CALCIUM, [id number] 04:31:00 Test Item Value Reference Range Interpretation Comments CALCIUM IONIZED (BEAKER) (test 1.12 mmol/L 1.12-1.27 code = 698) PH, BLOOD (BEAKER) (test code = 7.42 1810) BLOOD GAS, [id number] 04:30:00 Test Item Value Reference Range Interpretation [...] (test code = 1819) 40.0 % PLATELET [id number] 04:23:00 Test Item Value Reference Range Interpretation Comments PLATELET COUNT (BEAKER) (test 110 K/CU MM 150-450 L code = 756) OXYGEN SATURATION, [id number] 04:14:00 Test Item Value Reference Range Interpretation Comments O2 SATURATION (MEASURED) (BEAKER) 79.7 % (test code = 1455) [id number] 02:54:00 Test Item Value Reference Range Interpretation Comments PARTIAL THROMBOPLASTIN TIME 134.3 seconds 22.5-36.0 H (BEAKER) (test code = 760) [id number] 02:25:00 Test Item Value Reference Range Interpretation Comments PARTIAL THROMBOPLASTIN TIME 94.0 seconds 22.5-36.0 H (BEAKER) (test code = 760) BLOOD GAS, [id number] 01:56:00 Test Item Value Reference Range Interpretation [...] (test code = 1819) 40.0 % GLUCOSE-STAT [id number] 01:53:00 Test Item Value Reference Range Interpretation Comments GLUCOSE RANDOM (BEAKER) (test code 201 mg/dL 70-110 H = 652) POTASSIUM-STAT [id number] 01:52:00 Test Item Value Reference Range Interpretation Comments POTASSIUM (BEAKER) (test code = 4.9 meq/L 3.6-5.5 379) LACTIC ACID, ARTERIAL, WHOLE [id number] 01:18:00 Test Item Value Reference Range Interpretation Comments LACTATE BLOOD ARTERIAL (2) 2.0 mmol/L 0.5-2.2 (BEAKER) (test code = 2874) Effective 01/04/2016: Units/Reference Range ChangeNew: 0.5-2.2 mmol/L Previous: 5-20 mg/dLSpecimen slightly [id number] 01:18:00 Test Item Value Reference Range Interpretation Comments POTASSIUM (BEAKER) (test code = 5.1 meq/L 3.5-5.1 379) [id number] 01:18:00 Test Item Value Reference Range Interpretation Comments GLUCOSE RANDOM (BEAKER) (test code 194 mg/dL 70-105 H = 652) PROTHROMBIN [id number] 01:15:00 Test Item Value Reference Range Interpretation Comments PROTIME (BEAKER) (test code = 21.2 seconds 11.7-14.7 H 759) INR (BEAKER) (test code = 370) 1.8 <=5.9 RECOMMENDED COUMADIN/WARFARIN INR THERAPY RANGESSTANDARD DOSE: 2.0 - 3.0 Includes: PROPHYLAXIS forvenous thrombosis, systemic embolization; TREATMENT for venous thrombosis and/or pulmonary embolus.HIGH RISK: Target INR is 2.5-3.5 for patients with mechanical heart valves.[id number] 01:15:00 Test Item Value Reference Range Interpretation Comments FIBRINOGEN LEVEL (BEAKER) (test 233 mg/dl 225-434 code = 658) PLATELET [id number] 01:01:00 Test Item Value Reference Range Interpretation Comments PLATELET COUNT (BEAKER) (test code 84 K/CU MM 150-450 L = 756) BLOOD GAS, [id number] 01:00:00 Test Item Value Reference Range Interpretation [...] (test code = 1819) 40.0 % CALCIUM, [id number] 01:00:00 Test Item Value Reference Range Interpretation [...] 0.0-5.0 (BEAKER) (test code = 1414) GLUCOSE-STAT [id number] 23:53:00 Test Item Value Reference Range Interpretation Comments GLUCOSE RANDOM (BEAKER) (test code 182 mg/dL 70-110 H = 652) BLOOD GAS, [id number] 23:52:00 Test Item Value Reference Range Interpretation [...] FIO2 (BEAKER) (test code = 1819) 40 [id number] 23:05:00 Test Item Value Reference Range Interpretation Comments PARTIAL THROMBOPLASTIN TIME > seconds 22.5-36.0 HH (BEAKER) (test code = 760) BLOOD GAS, [id number] 23:01:00 Test Item Value Reference Range Interpretation [...] (BEAKER) (test code = 1819) 100.0 % [id number] 22:46:00 Test Item Value Reference Range Interpretation Comments FIBRINOGEN LEVEL (BEAKER) (test 223 mg/dl 225-434 L code = 658) PROTHROMBIN [id number] 22:45:00 Test Item Value Reference Range Interpretation Comments PROTIME (BEAKER) (test code = 23.0 seconds 11.7-14.7 H 759) INR (BEAKER) (test code = 370) 2.0 <=5.9 RECOMMENDED COUMADIN/WARFARIN INR THERAPY RANGESSTANDARD DOSE: 2.0 - 3.0 Includes: PROPHYLAXIS forvenous thrombosis, systemic embolization; TREATMENT for venous thrombosis and/or pulmonary embolus.HIGH RISK: Target INR is 2.5-3.5 for patients with mechanical heart valves.BLOOD GAS, [id number] 22:22:00 Test Item Value Reference Range Interpretation [...] (test code = 1819) 40.0 % CALCIUM, [id number] 22:21:00 Test Item Value Reference Range Interpretation Comments CALCIUM IONIZED (BEAKER) (test 1.05 mmol/L 1.12-1.27 L code = 698) PH, BLOOD (BEAKER) (test code = 7.67 1810) PLATELET [id number] 22:21:00 Test Item Value Reference Range Interpretation Comments PLATELET COUNT (BEAKER) (test code 71 K/CU MM 150-450 L = 756) GLUCOSE-STAT [id number] 22:20:00 Test Item Value Reference Range Interpretation Comments GLUCOSE RANDOM (BEAKER) (test code 189 mg/dL 70-110 H = 652) POTASSIUM-STAT [id number] 22:19:00 Test Item Value Reference Range Interpretation [...] 2133 U/L 125-220 H code = 635) [id number] 20:55:00 Test Item Value Reference Range Interpretation Comments POTASSIUM (BEAKER) (test code = 5.4 meq/L 3.5-5.1 H 379) [id number] 20:55:00 Test Item Value Reference Range Interpretation Comments MAGNESIUM (BEAKER) (test code = 1.6 mg/dL 1.6-2.6 627) [id number] 20:55:00 Test Item Value Reference Range Interpretation Comments PHOSPHORUS (BEAKER) (test code = 2.9 mg/dL 2.3-4.7 604) GLUCOSE-STAT [id number] 20:31:00 Test Item Value Reference Range Interpretation Comments GLUCOSE RANDOM (BEAKER) (test code 166 mg/dL 70-110 H = 652) POTASSIUM-STAT [id number] 20:30:00 Test Item Value Reference Range Interpretation Comments POTASSIUM (BEAKER) (test code = 5.2 meq/L 3.6-5.5 379) BLOOD GAS, [id number] 20:30:00 Test Item Value Reference Range Interpretation [...] code = 1819) 40.0 % OXYGEN SATURATION, [id number] 18:46:00 Test Item Value Reference Range Interpretation Comments O2 SATURATION (MEASURED) (BEAKER) 81.5 % (test code = 1455) RAD, CHEST, 1 VIEW, NON [id number] 18:27:00Reason for exam:->impella/ECMO placementShould this be performed [...] MDReport Verified Date/Time: 01/11/2018 18:27:33 Reading Location: [address] Ortho Consult Reading Room [id number] 18:11:00 Test Item Value Reference Range Interpretation Comments PARTIAL THROMBOPLASTIN TIME > seconds 22.5-36.0 HH (BEAKER) (test code = 760) LACTATE DEHYDROGENASE (LDH)2018-01-11 18:09:00 Test Item Value Reference Range Interpretation Comments LACTATE DEHYDROGENASE 1590 U/L 125-220 H Specim en slightly (BEAKER) (test code = hemoly zed 635) BASIC METABOLIC [id number] 18:08:00 Test Item Value Reference Range Interpretation [...] S NOT APPLICABLE FOR DIALYSIS PATIEN TS. [id number] 17:54:00 Test Item Value Reference Range Interpretation Comments MAGNESIUM (BEAKER) 1.8 mg/dL 1.6-2.6 Specimen slightly (test code = 627) hemolyzed [id number] 17:54:00 Test Item Value Reference Range Interpretation Comments PHOSPHORUS (BEAKER) 4.6 mg/dL 2.3-4.7 Specimen slightly (test code = 604) hemolyzed LACTIC ACID, ARTERIAL, WHOLE [id number] 17:53:00 Test Item Value Reference Range Interpretation Comments LACTATE BLOOD 10.8 mmol/L 0.5-2.2 H Specimen sligh tly ARTERIAL (2) (BEAKER) hemoly zed (test code = 2874) Effective 01/04/2016: Units/Reference Range ChangeNew: 0.5-2.2 mmol/L Previous: 5-20 mg/oIV-[id number] 17:46:00 Test Item Value Reference Range Interpretation [...] exclusion of thrombosis is within 95-100% range. [id number] 17:46:00 Test Item Value Reference Range Interpretation Comments FIBRINOGEN LEVEL (BEAKER) (test 201 mg/dl 225-434 L code = 658) PROTHROMBIN [id number] 17:45:00 Test Item Value Reference Range Interpretation Comments PROTIME (BEAKER) (test code = 24.4 seconds 11.7-14.7 H 759) INR (BEAKER) (test code = 370) 2.2 <=5.9 RECOMMENDED COUMADIN/WARFARIN INR THERAPY RANGESSTANDARD DOSE: 2.0 - 3.0 Includes: PROPHYLAXIS forvenous thrombosis, systemic embolization; TREATMENT for venous thrombosis and/or pulmonary embolus.HIGH RISK: Target INR is 2.5-3.5 for patients with mechanical heart valves.BLOOD GAS, [id number] 17:44:00 Test Item Value Reference Range Interpretation [...] code = 1819) 40.0 % SODIUM NA-STAT [id number] 17:44:00 Test Item Value Reference Range Interpretation Comments SODIUM (BEAKER) (test code = 381) 134 meq/L 135-148 L POTASSIUM-STAT [id number] 17:44:00 Test Item Value Reference Range Interpretation Comments POTASSIUM (BEAKER) (test code = 6.2 meq/L 3.6-5.5 HH 379) GLUCOSE-STAT [id number] 17:44:00 Test Item Value Reference Range Interpretation Comments GLUCOSE RANDOM (BEAKER) (test code 147 mg/dL 70-110 H = 652) HGB/HCT (H&H) - STAT [id number] 17:44:00 Test Item Value Reference Range Interpretation Comments HEMOGLOBIN (BEAKER) (test code = 9.9 g/dL 13.0-16.8 L 410) HEMATOCRIT (BEAKER) (test code = 29.0 % 40.0-50.0 L 411) CALCIUM, [id number] 17:41:00 Test Item Value Reference Range Interpretation Comments CALCIUM IONIZED (BEAKER) (test 1.03 mmol/L 1.12-1.27 L code = 698) PH, BLOOD (BEAKER) (test code = 7.52 1810) OXYGEN SATURATION, [id number] 17:39:00 Test Item Value Reference Range Interpretation Comments O2 SATURATION (MEASURED) (BEAKER) 84.5 % (test code = 1455) CBC W/PLT COUNT & AUTO [id number] 17:37:00 Test Item Value Reference Range Interpretation [...] 0-1 PERCENT (BEAKER) (test code = 2801) [id number] 16:35:00 Test Item Value Reference Range Interpretation Comments ACTIVATED CLOTTING TIME 230 sec TEST ED AT [place] [address] ([facility]) (test code = [place] [address]) [address] [id number] 16:35:00 Test Item Value Reference Range Interpretation Comments ACTIVATED CLOTTING TIME 191 sec TEST ED AT [place] [address] ([facility]) (test code = [place] [address]) [address] BLOOD GAS, [id number] 16:20:00 Test Item Value Reference Range Interpretation [...] (test code = 1819) 100 BLOOD GAS, [id number] 16:19:00 Test Item Value Reference Range Interpretation [...] drawn from ECMO circuitLACTIC ACID, ARTERIAL, WHOLE [id number] 14:07:00 Test Item Value Reference Range Interpretation Comments LACTATE BLOOD 13.1 mmol/L 0.5-2.2 H Specimen sligh tly ARTERIAL (2) (BEAKER) hemoly zed (test code = 2874) Effective 01/04/2016: Units/Reference Range ChangeNew: 0.5-2.2 mmol/L Previous: 5-20 mg/dLPROTHROMBIN TIME/[id number] 14:01:00 Test Item Value Reference Range Interpretation Comments PROTIME (BEAKER) (test code = 20.9 seconds 11.7-14.7 H 759) INR (BEAKER) (test code = 370) 1.8 <=5.9 RECOMMENDED COUMADIN/WARFARIN INR THERAPY RANGESSTANDARD DOSE: 2.0 - 3.0 Includes: PROPHYLAXIS forvenous thrombosis, systemic embolization; TREATMENT for venous thrombosis and/or pulmonary embolus.HIGH RISK: Target INR is 2.5-3.5 for patients with mechanical heart valves.[id number] 14:01:00 Test Item Value Reference Range Interpretation Comments FIBRINOGEN LEVEL (BEAKER) (test 227 mg/dl 225-434 code = 658) PLATELET [id number] 13:54:00 Test Item Value Reference Range Interpretation Comments PLATELET COUNT (BEAKER) (test 115 K/CU MM 150-450 L code = 756) BLOOD GAS, [id number] 13:47:00 Test Item Value Reference Range Interpretation [...] (test code = 1819) 40.0 % GLUCOSE-STAT [id number] 13:47:00 Test Item Value Reference Range Interpretation Comments GLUCOSE RANDOM (BEAKER) (test code 134 mg/dL 70-110 H = 652) [id number] 12:33:00 Test Item Value Reference Range Interpretation Comments POTASSIUM (BEAKER) (test code = 5.6 meq/L 3.5-5.1 H 379) PRN - repeat glucose levels every 1 hour or as specified by insulin titration orders until glucose level is less than 450 mg/[id number] 12:33:00 Test Item Value Reference Range Interpretation Comments GLUCOSE RANDOM (BEAKER) (test code = 43 mg/dL 70-105 L 652) PRN - repeat glucose levels every 1 hour or as specified by insulin titration orders until glucose level is less than 450 mg/dLBASIC METABOLIC [id number] 11:05:00 Test Item Value Reference Range Interpretation [...] until glucose level is less than 450 mg/[id number] 11:05:00 Test Item Value Reference Range Interpretation Comments GLUCOSE RANDOM (BEAKER) (test code = 34 mg/dL 70-105 LL 652) [id number] 10:44:00 Test Item Value Reference Range Interpretation Comments POTASSIUM (BEAKER) (test code = 5.9 meq/L 3.5-5.1 H 379) HEPATIC FUNCTION [id number] 10:44:00 Test Item Value Reference Range Interpretation [...] Previous: 5-20 mg/dLCBC W/PLT COUNT & AUTO [id number] 10:23:00 Test Item Value Reference Range Interpretation [...] (BEAKER) (test code = 2801) BLOOD GAS, [id number] 10:20:00 Test Item Value Reference Range Interpretation [...] (BEAKER) (test code = 1819) 40.0 % [id number] 09:01:00 Test Item Value Reference Range Interpretation Comments POTASSIUM (BEAKER) (test code = 5.9 meq/L 3.5-5.1 H 379) PRN - repeat glucose levels every 1 hour or as specified by insulin titration orders until glucose level is less than 450 mg/[id number] 09:01:00 Test Item Value Reference Range Interpretation Comments MAGNESIUM (BEAKER) (test code = 1.7 mg/dL 1.6-2.6 627) PRN - repeat glucose levels every 1 hour or as specified by insulin titration orders until glucose level is less than 450 mg/[id number] 09:01:00 Test Item Value Reference Range Interpretation Comments PHOSPHORUS (BEAKER) (test code = 4.7 mg/dL 2.3-4.7 604) PRN - repeat glucose levels every 1 hour or as specified by insulin titration orders until glucose level is less than 450 mg/[id number] 09:01:00 Test Item Value Reference Range Interpretation Comments GLUCOSE RANDOM (BEAKER) (test code = 50 mg/dL 70-105 L 652) PRN - repeat glucose levels every 1 hour or as specified by insulin titration orders until glucose level is less than 450 mg/dLCALCIUM, [id number] 08:47:00 Test Item Value Reference Range Interpretation Comments CALCIUM IONIZED (BEAKER) (test 1.24 mmol/L 1.12-1.27 code = 698) PH, BLOOD (BEAKER) (test code = 7.31 1810) [id number] 08:45:00 Test Item Value Reference Range Interpretation Comments PARTIAL THROMBOPLASTIN TIME 53.7 seconds 22.5-36.0 H (BEAKER) (test code = 760) BLOOD GAS, [id number] 08:41:00 Test Item Value Reference Range Interpretation [...] (test code = 1819) 40.0 % PH, [id number] 08:41:00 Test Item Value Reference Range Interpretation Comments PH ARTERIAL (BEAKER) (test code = 383) 7.31 7.35-7.45 L RAD, CHEST, 1 VIEW, NON [id number] 07:31:00Reason for exam:->s/p cardiac surgeryShould this be [...] and no pneumothorax demonstrated. Signed: Pedro Xie [facility] VerifiedDate/Time: 01/11/2018 07:31:38 Reading Location: [facility] [id number] Ortho Consult Reading Room BLOOD [...] code = 1819) 40.0 % BASIC METABOLIC [id number] 06:12:00 Test Item Value Reference Range Interpretation [...] NOT APPLICABLE FOR DIALYSIS PATIEN TS. POCT-GLUCOSE [id number] 05:58:00 Test Item Value Reference Range Interpretation Comments POC-GLUCOSE METER 121 mg/dL 70-110 H TESTED AT [facility] 67[address] (BEAKER) (test code = [place]OSTER Paul [place] [address]) [address] POCT-GLUCOSE [id number] 05:58:00 Test Item Value Reference Range Interpretation Comments POC-GLUCOSE METER 66 mg/dL 70-110 L Will Repea t Test/TESTED (BEAKER) (test code = AT [facility] [address] [place] [address]) [facility] [address] [id number] 05:51:00 Test Item Value Reference Range Interpretation Comments PHOSPHORUS (BEAKER) (test code = 3.5 mg/dL 2.3-4.7 604) [id number] 05:51:00 Test Item Value Reference Range Interpretation Comments MAGNESIUM (BEAKER) (test code = 1.9 mg/dL 1.6-2.6 627) BLOOD GAS, [id number] 05:47:00 Test Item Value Reference Range Interpretation [...] (test code = 1819) 40.0 % POCT-GLUCOSE [id number] 05:27:00 Test Item Value Reference Range Interpretation Comments POC-GLUCOSE METER 112 mg/dL 70-110 H TESTED AT [place] [address] ([facility]) ([facility] 1538) [address] POCT-GLUCOSE [id number] 05:27:00 Test Item Value Reference Range Interpretation Comments POC-GLUCOSE METER 106 mg/dL 70-110 TESTED AT [place] [address] ([facility]) (test code = [facility] 1538) [address] POCT-GLUCOSE [id number] 05:26:00 Test Item Value Reference Range Interpretation Comments POC-GLUCOSE METER 66 mg/dL 70-110 L TESTED AT [place] [address] ([facility]) (test code = [facility] Humberto [facility] [address] 1538) LACTIC ACID, ARTERIAL, WHOLE [id number] 04:59:00 Test Item Value Reference Range Interpretation Comments LACTATE BLOOD 12.2 mmol/L 0.5-2.2 H Specimen sligh tly ARTERIAL (2) (BEAKER) hemoly zed (test code = 2874) Effective 01/04/2016: Units/Reference Range ChangeNew: 0.5-2.2 mmol/L Previous: 5-20 mg/dLCALCIUM, [id number] 04:57:00 Test Item Value Reference Range Interpretation Comments CALCIUM IONIZED (BEAKER) (test 1.33 mmol/L 1.12-1.27 H code = 698) PH, BLOOD (BEAKER) (test code = 7.30 1810) BLOOD GAS, [id number] 04:57:00 Test Item Value Reference Range Interpretation [...] code = 1819) 45.0 % OXYGEN SATURATION, [id number] 04:56:00 Test Item Value Reference Range Interpretation Comments O2 SATURATION (MEASURED) (BEAKER) 83.2 % (test code = 1455) CBC W/PLT COUNT & AUTO [id number] 04:56:00 Test Item Value Reference Range Interpretation [...] PERCENT (BEAKER) (test code = 2801) CALCIUM, [id number] 03:38:00 Test Item Value Reference Range Interpretation Comments CALCIUM IONIZED (BEAKER) (test 1.32 mmol/L 1.12-1.27 H code = 698) PH, BLOOD (BEAKER) (test code = 7.29 1810) BLOOD GAS, [id number] 03:36:00 Test Item Value Reference Range Interpretation [...] 1819) 50.0 % HGB/HCT (H&H) - STAT [id number] 03:36:00 Test Item Value Reference Range Interpretation Comments HEMOGLOBIN (BEAKER) (test code = 12.5 g/dL 13.0-16.8 L 410) HEMATOCRIT (BEAKER) (test code = 37.0 % 40.0-50.0 L 411) OXYGEN SATURATION, [id number] 03:35:00 Test Item Value Reference Range Interpretation Comments O2 SATURATION (MEASURED) (BEAKER) 80.3 % (test code = 1455) GLUCOSE-STAT [id number] 03:34:00 Test Item Value Reference Range Interpretation Comments GLUCOSE RANDOM (BEAKER) (test code = 91 mg/dL 70-110 652) SODIUM NA-STAT [id number] 03:34:00 Test Item Value Reference Range Interpretation Comments SODIUM (BEAKER) (test code = 381) 137 meq/L 135-148 POTASSIUM-STAT [id number] 03:34:00 Test Item Value Reference Range Interpretation Comments POTASSIUM (BEAKER) (test code = 4.6 meq/L 3.6-5.5 379) BLOOD GAS, [id number] 03:01:00 Test Item Value Reference Range Interpretation [...] 1819) 50.0 % HGB/HCT (H&H) - STAT [id number] 03:01:00 Test Item Value Reference Range Interpretation Comments HEMOGLOBIN (BEAKER) (test code = 12.0 g/dL 13.0-16.8 L 410) HEMATOCRIT (BEAKER) (test code = 35.0 % 40.0-50.0 L 411) POTASSIUM-STAT [id number] 03:00:00 Test Item Value Reference Range Interpretation Comments POTASSIUM (BEAKER) (test code = 5.0 meq/L 3.6-5.5 379) GLUCOSE-STAT [id number] 03:00:00 Test Item Value Reference Range Interpretation Comments GLUCOSE RANDOM (BEAKER) (test code 102 mg/dL 70-110 = 652) SODIUM NA-STAT [id number] 03:00:00 Test Item Value Reference Range Interpretation Comments SODIUM (BEAKER) (test code = 381) 140 meq/L 135-148 LACTIC ACID, ARTERIAL, WHOLE [id number] 01:53:00 Test Item Value Reference Range Interpretation Comments LACTATE BLOOD 9.4 mmol/L 0.5-2.2 H Specimen sligh tly ARTERIAL (2) (BEAKER) hemoly zed (test code = 2874) Effective 01/04/2016: Units/Reference Range ChangeNew: 0.5-2.2 mmol/L Previous: 5-20 mg/dLGLUCOSE-STAT [id number] 01:27:00 Test Item Value Reference Range Interpretation Comments GLUCOSE RANDOM (BEAKER) (test code = 99 mg/dL 70-110 652) BLOOD GAS, [id number] 01:27:00 Test Item Value Reference Range Interpretation [...] 1819) 100.0 % HGB/HCT (H&H) - STAT [id number] 01:27:00 Test Item Value Reference Range Interpretation Comments HEMOGLOBIN (BEAKER) (test code = 12.7 g/dL 13.0-16.8 L 410) HEMATOCRIT (BEAKER) (test code = 37.0 % 40.0-50.0 L 411) SODIUM NA-STAT [id number] 01:26:00 Test Item Value Reference Range Interpretation Comments SODIUM (BEAKER) (test code = 381) 141 meq/L 135-148 POTASSIUM-STAT [id number] 01:26:00 Test Item Value Reference Range Interpretation Comments POTASSIUM (BEAKER) (test code = 3.6 meq/L 3.6-5.5 379) [id number] 00:38:00 Test Item Value Reference Range Interpretation Comments PARTIAL THROMBOPLASTIN TIME 47.4 seconds 22.5-36.0 H (BEAKER) (test code = 760) [id number] 00:35:00 Test Item Value Reference Range Interpretation Comments POTASSIUM (BEAKER) 3.5 meq/L 3.5-5.1 Specimen slightly (test code = 379) hemolyzed CALCIUM, [id number] 00:25:00 Test Item Value Reference Range Interpretation [...] = 1414) RAD, CHEST, 1 VIEW, NON [id number] 22:36:00Reason for exam:->s/p BronchoscopyFINAL REPORT CLINICAL INDICATION: Post bronchoscopy Comparison: Same date [id number] hours There is improved aeration of the right upper lobe. No pneumothorax is present. Hazy opacity in the right upper lobe and in the retrocardiac lower lungs may reflect atelectasis but pneumonitis should be excluded clinically. The cardiomediastinal contours are stable. Support lines are stable. Signed: Kellen Parra MDReport Verified Date/Time: 01/10/2018 22:36:29 Reading Location: [address] Reading Room C METABOLIC [id number] 22:01:00 Test Item Value Reference Range Interpretation [...] S NOT APPLICABLE FOR DIALYSIS PATIEN TS. [id number] 22:00:00 Test Item Value Reference Range Interpretation Comments MAGNESIUM (BEAKER) 2.4 mg/dL 1.6-2.6 Specimen slightly (test code = 627) hemolyzed [id number] 22:00:00 Test Item Value Reference Range Interpretation Comments PHOSPHORUS (BEAKER) 3.2 mg/dL 2.3-4.7 Specimen slightly (test code = 604) hemolyzed LACTIC ACID, ARTERIAL, WHOLE [id number] 21:57:00 Test Item Value Reference Range Interpretation Comments LACTATE BLOOD 10.2 mmol/L 0.5-2.2 H Specimen sligh tly ARTERIAL (2) (BEAKER) hemoly zed (test code = 2874) Effective 01/04/2016: Units/Reference Range ChangeNew: 0.5-2.2 mmol/L Previous: 5-20 mg/dLCBC W/PLT COUNT & AUTO [id number] 21:51:00 Test Item Value Reference Range Interpretation [...] 0-1 PERCENT (BEAKER) (test code = 2801) [id number] 21:49:00 Test Item Value Reference Range Interpretation Comments PARTIAL THROMBOPLASTIN TIME 41.2 seconds 22.5-36.0 H (BEAKER) (test code = 760) PROTHROMBIN [id number] 21:48:00 Test Item Value Reference Range Interpretation Comments PROTIME (BEAKER) (test code = 19.8 seconds 11.7-14.7 H 759) INR (BEAKER) (test code = 370) 1.7 <=5.9 RECOMMENDED COUMADIN/WARFARIN INR THERAPY RANGESSTANDARD DOSE: 2.0 - 3.0 Includes: PROPHYLAXIS forvenous thrombosis, systemic embolization; TREATMENT for venous thrombosis and/or pulmonary embolus.HIGH RISK: Target INR is 2.5-3.5 for patients with mechanical heart valves.[id number] 21:48:00 Test Item Value Reference Range Interpretation Comments FIBRINOGEN LEVEL (BEAKER) (test 221 mg/dl 225-434 L code = 658) CALCIUM, [id number] 21:33:00 Test Item Value Reference Range Interpretation Comments CALCIUM IONIZED (BEAKER) (test 1.54 mmol/L 1.12-1.27 H code = 698) PH, BLOOD (BEAKER) (test code = 7.33 1810) OXYGEN SATURATION, [id number] 21:33:00 Test Item Value Reference Range Interpretation Comments O2 SATURATION (MEASURED) (BEAKER) 67.1 % (test code = 1455) GLUCOSE-STAT [id number] 21:32:00 Test Item Value Reference Range Interpretation Comments GLUCOSE RANDOM (BEAKER) (test code = 98 mg/dL 70-110 652) SODIUM NA-STAT [id number] 21:32:00 Test Item Value Reference Range Interpretation Comments SODIUM (BEAKER) (test code = 381) 139 meq/L 135-148 POTASSIUM-STAT [id number] 21:32:00 Test Item Value Reference Range Interpretation Comments POTASSIUM (BEAKER) (test code = 3.6 meq/L 3.6-5.5 379) BLOOD GAS, [id number] 21:32:00 Test Item Value Reference Range Interpretation [...] 1819) 60.0 % HGB/HCT (H&H) - STAT [id number] 21:32:00 Test Item Value Reference Range Interpretation Comments HEMOGLOBIN (BEAKER) (test code = 8.2 g/dL 13.0-16.8 L 410) HEMATOCRIT (BEAKER) (test code = 24.0 % 40.0-50.0 L 411) RAD, CHEST, 1 VIEW, NON [id number] 21:32:00Reason for exam:->s/p cardiac surgeryShould this be [...] the level of the clavicles. Right IJ [place]-Moni catheter terminatesin the distal right pulmonary artery. The soft tissues and osseous structures are intact. IMPRESSION: Postoperative changes with right upper lobe collapse, likely secondary to mucous plugging. Supporting lines and tubes as described above. Note position of the [place]-Mnoi catheter. Signed: Moiz Musa MDReport Verified Date/Time: 01/10/2018 21:32:31 Reading Location: [facility] [id number] Consult Reading Room THROMBOELASTOGRAPH (TEG)2018-01-10 21:01:00 [...] 55.0-65.0 L (test code = 1413) CALCIUM, [id number] 20:42:00 Test Item Value Reference Range Interpretation Comments CALCIUM IONIZED (BEAKER) (test 1.41 mmol/L 1.12-1.27 H code = 698) PH, BLOOD (BEAKER) (test code = 7.41 1810) SODIUM NA-STAT [id number] 20:41:00 Test Item Value Reference Range Interpretation Comments SODIUM (BEAKER) (test code = 381) 138 meq/L 135-148 POTASSIUM-STAT [id number] 20:41:00 Test Item Value Reference Range Interpretation Comments POTASSIUM (BEAKER) (test code = 3.7 meq/L 3.6-5.5 379) BLOOD GAS, [id number] 20:41:00 Test Item Value Reference Range Interpretation [...] (test code = 1819) 100.0 % GLUCOSE-STAT [id number] 20:41:00 Test Item Value Reference Range Interpretation Comments GLUCOSE RANDOM (BEAKER) (test code 120 mg/dL 70-110 H = 652) HGB/HCT (H&H) - STAT [id number] 20:41:00 Test Item Value Reference Range Interpretation Comments HEMOGLOBIN (BEAKER) (test code = 7.8 g/dL 13.0-16.8 L 410) HEMATOCRIT (BEAKER) (test code = 23.0 % 40.0-50.0 L 411) [id number] 20:23:00 Test Item Value Reference Range Interpretation Comments FIBRINOGEN LEVEL (BEAKER) (test 239 mg/dl 225-434 code = 658) [id number] 20:23:00 Test Item Value Reference Range Interpretation Comments PARTIAL THROMBOPLASTIN TIME 38.6 seconds 22.5-36.0 H (BEAKER) (test code = 760) PROTHROMBIN [id number] 20:22:00 Test Item Value Reference Range Interpretation Comments PROTIME ([facility]) (test code = 21.6 seconds 11.7-14.7 H 759) INR ([facility]) (test code = 370) 1.9 <=5.9 RECOMMENDED COUMADIN/WARFARIN INR THERAPY RANGESSTANDARD DOSE: 2.0 - 3.0 Includes: PROPHYLAXIS forvenous thrombosis, systemic embolization; TREATMENT for venous thrombosis and/or pulmonary embolus.HIGH RISK: Target INR is 2.5-3.5 for patients with mechanical heart valves.[id number] 20:16:00 Test Item Value Reference Range Interpretation Comments ACTIVATED CLOTTING TIME 114 sec TEST ED AT [place] [address] ([facility]) (test code = [place] [address]) [address] [id number] 20:16:00 Test Item Value Reference Range Interpretation Comments ACTIVATED CLOTTING TIME 499 sec TEST ED AT [place] [address] ([facility]) (test code = [place] [address]) [id number] 20:16:00 Test Item Value Reference Range Interpretation Comments ACTIVATED CLOTTING TIME 483 sec TEST ED AT [place] [address] ([facility]) (test code = [place] [address]) [address] [id number] 20:16:00 Test Item Value Reference Range Interpretation Comments ACTIVATED CLOTTING TIME 538 sec TEST ED AT [place] [address] ([facility]) (test code = [place] [address]) [address] [id number] 20:16:00 Test Item Value Reference Range Interpretation Comments ACTIVATED CLOTTING TIME 615 sec TEST ED AT [place] [address] ([facility]) (test code = [place] [address]) [address] [id number] 20:16:00 Test Item Value Reference Range Interpretation Comments ACTIVATED CLOTTING TIME 692 sec TEST ED AT [place] [address] ([facility]) (test code = [place] [address]) [address] [id number] 20:16:00 Test Item Value Reference Range Interpretation Comments ACTIVATED CLOTTING TIME 428 sec TEST ED AT [place] [address] ([facility]) (test code = [place] [address]) [address] [id number] 20:16:00 Test Item Value Reference Range Interpretation Comments ACTIVATED CLOTTING TIME 373 sec TEST ED AT [place] [address] ([facility]) (test code = [place] [address]) [address] [id number] 20:16:00 Test Item Value Reference Range Interpretation Comments ACTIVATED CLOTTING TIME 455 sec TEST ED AT [place] [address] ([facility]) (test code = [place] [address]) [address] [id number] 20:16:00 Test Item Value Reference Range Interpretation Comments ACTIVATED CLOTTING TIME 494 sec TEST ED AT [place] [address] ([facility]) (test code = [place] [address]) [id number] 20:16:00 Test Item Value Reference Range Interpretation Comments ACTIVATED CLOTTING TIME 527 sec TEST ED AT [place] [address] ([facility]) (test code = [place] [address]) [address] [id number] 20:16:00 Test Item Value Reference Range Interpretation Comments ACTIVATED CLOTTING TIME 610 sec TEST ED AT [place] [address] ([facility]) (test code = [place] [address]) [address] [id number] 20:16:00 Test Item Value Reference Range Interpretation Comments ACTIVATED CLOTTING TIME 576 sec TEST ED AT [place] [address] ([facility]) (test code = [place] [address]) [address] [id number] 20:16:00 Test Item Value Reference Range Interpretation Comments ACTIVATED CLOTTING TIME 384 sec TEST ED AT [place] [address] ([facility]) (test code = [place] [address]) [address] PLATELET [id number] 20:08:00 Test Item Value Reference Range Interpretation Comments PLATELET COUNT ([facility]) (test code 47 K/CU MM 150-450 L = 756) THROMBOELASTOGRAPH (TEG)2018-01-10 20:00:00 Test Item Value Reference Range Interpretation Comments TEG ACTIVATED CLOTTING minutes 4.0-7.0 No cl ot detected TIME (BEAKER) (test code = 1407) TGH ACTIVATED CLOTTING 9.2 minutes 4.0-7.0 H TIME (AKER) (test code = 1411) TGH FIBRINOGEN ACTIVITY 51.1 degrees 61.0-73.0 L (BEAKER) (test code = 1412) TGH PLT. AGGREGATION 41.9 MM 55.0-65.0 L (BEAKER) (test code = 1413) TGH FIBRINOLYSIS 0.0 % 0.0-5.0 (BEAKER) (test code = 1414) CALCIUM, [id number] 19:59:00 Test Item Value Reference Range Interpretation Comments CALCIUM IONIZED (BEAKER) (test 1.39 mmol/L 1.12-1.27 H code = 698) PH, BLOOD (BEAKER) (test code = 7.37 1810) BLOOD GAS, [id number] 19:58:00 Test Item Value Reference Range Interpretation [...] (test code = 1819) 100.0 % GLUCOSE-STAT [id number] 19:58:00 Test Item Value Reference Range Interpretation Comments GLUCOSE RANDOM (BEAKER) (test code 143 mg/dL 70-110 H = 652) HGB/HCT (H&H) - STAT [id number] 19:58:00 Test Item Value Reference Range Interpretation Comments HEMOGLOBIN (BEAKER) (test code = 8.7 g/dL 13.0-16.8 L 410) HEMATOCRIT (BEAKER) (test code = 26.0 % 40.0-50.0 L 411) SODIUM NA-STAT [id number] 19:57:00 Test Item Value Reference Range Interpretation Comments SODIUM (BEAKER) (test code = 381) 140 meq/L 135-148 POTASSIUM-STAT [id number] 19:57:00 Test Item Value Reference Range Interpretation Comments POTASSIUM (BEAKER) (test code = 3.9 meq/L 3.6-5.5 379) [id number] 19:29:00 Test Item Value Reference Range Interpretation Comments PARTIAL THROMBOPLASTIN TIME > seconds 22.5-36.0 HH (BEAKER) (test code = 760) [id number] 19:16:00 Test Item Value Reference Range Interpretation Comments FIBRINOGEN LEVEL (BEAKER) (test 271 mg/dl 225-434 code = 658) PROTHROMBIN [id number] 19:15:00 Test Item Value Reference Range Interpretation Comments PROTIME (BEAKER) (test code = 21.3 seconds 11.7-14.7 H 759) INR (BEAKER) (test code = 370) 1.8 <=5.9 RECOMMENDED COUMADIN/WARFARIN INR THERAPY RANGESSTANDARD DOSE: 2.0 - 3.0 Includes: PROPHYLAXIS forvenous thrombosis, systemic embolization; TREATMENT for venous thrombosis and/or pulmonary embolus.HIGH RISK: Target INR is 2.5-3.5 for patients with mechanical heart valves.PLATELET [id number] 19:06:00 Test Item Value Reference Range Interpretation Comments PLATELET COUNT (BEAKER) (test code 54 K/CU MM 150-450 L = 756) BLOOD GAS, [id number] 18:49:00 Test Item Value Reference Range Interpretation [...] 1819) 100.0 % HGB/HCT (H&H) - STAT [id number] 18:44:00 Test Item Value Reference Range Interpretation Comments HEMOGLOBIN (BEAKER) (test code = 10.1 g/dL 13.0-16.8 L 410) HEMATOCRIT (BEAKER) (test code = 30.0 % 40.0-50.0 L 411) SODIUM NA-STAT [id number] 18:43:00 Test Item Value Reference Range Interpretation Comments SODIUM (BEAKER) (test code = 381) 137 meq/L 135-148 POTASSIUM-STAT [id number] 18:43:00 Test Item Value Reference Range Interpretation Comments POTASSIUM (BEAKER) (test code = 5.0 meq/L 3.6-5.5 379) GLUCOSE-STAT [id number] 18:43:00 Test Item Value Reference Range Interpretation Comments GLUCOSE RANDOM (BEAKER) (test code 187 mg/dL 70-110 H = 652) SODIUM NA-STAT [id number] 18:22:00 Test Item Value Reference Range Interpretation Comments SODIUM (BEAKER) (test code = 381) 140 meq/L 135-148 POTASSIUM-STAT [id number] 18:22:00 Test Item Value Reference Range Interpretation Comments POTASSIUM (BEAKER) (test code = 4.7 meq/L 3.6-5.5 379) BLOOD GAS, [id number] 18:22:00 Test Item Value Reference Range Interpretation [...] (test code = 1819) 60.0 % GLUCOSE-STAT [id number] 18:22:00 Test Item Value Reference Range Interpretation Comments GLUCOSE RANDOM (BEAKER) (test code 209 mg/dL 70-110 H = 652) HGB/HCT (H&H) - STAT [id number] 18:22:00 Test Item Value Reference Range Interpretation Comments HEMOGLOBIN (BEAKER) (test code = 10.2 g/dL 13.0-16.8 L 410) HEMATOCRIT (BEAKER) (test code = 30.0 % 40.0-50.0 L 411) BLOOD GAS, [id number] 17:57:00 Test Item Value Reference Range Interpretation [...] (test code = 1819) 65.0 % GLUCOSE-STAT [id number] 17:57:00 Test Item Value Reference Range Interpretation Comments GLUCOSE RANDOM (BEAKER) (test code 198 mg/dL 70-110 H = 652) HGB/HCT (H&H) - STAT [id number] 17:57:00 Test Item Value Reference Range Interpretation Comments HEMOGLOBIN (BEAKER) (test code = 10.3 g/dL 13.0-16.8 L 410) HEMATOCRIT (BEAKER) (test code = 30.0 % 40.0-50.0 L 411) SODIUM NA-STAT [id number] 17:56:00 Test Item Value Reference Range Interpretation Comments SODIUM (BEAKER) (test code = 381) 138 meq/L 135-148 POTASSIUM-STAT [id number] 17:56:00 Test Item Value Reference Range Interpretation Comments POTASSIUM (BEAKER) (test code = 4.7 meq/L 3.6-5.5 379) BLOOD GAS, [id number] 17:28:00 Test Item Value Reference Range Interpretation [...] (test code = 1819) 65.0 % GLUCOSE-STAT [id number] 17:28:00 Test Item Value Reference Range Interpretation Comments GLUCOSE RANDOM (BEAKER) (test code 223 mg/dL 70-110 H = 652) HGB/HCT (H&H) - STAT [id number] 17:28:00 Test Item Value Reference Range Interpretation Comments HEMOGLOBIN (BEAKER) (test code = 10.1 g/dL 13.0-16.8 L 410) HEMATOCRIT (BEAKER) (test code = 30.0 % 40.0-50.0 L 411) SODIUM NA-STAT [id number] 17:27:00 Test Item Value Reference Range Interpretation Comments SODIUM (BEAKER) (test code = 381) 140 meq/L 135-148 POTASSIUM-STAT [id number] 17:27:00 Test Item Value Reference Range Interpretation [...] code = 1414) HGB/HCT (H&H) - STAT [id number] 17:01:00 Test Item Value Reference Range Interpretation Comments HEMOGLOBIN (BEAKER) (test code = 10.1 g/dL 13.0-16.8 L 410) HEMATOCRIT (BEAKER) (test code = 30.0 % 40.0-50.0 L 411) BLOOD GAS, [id number] 17:00:00 Test Item Value Reference Range Interpretation [...] (test code = 1819) 65.0 % GLUCOSE-STAT [id number] 17:00:00 Test Item Value Reference Range Interpretation Comments GLUCOSE RANDOM (BEAKER) (test code 243 mg/dL 70-110 H = 652) SODIUM NA-STAT [id number] 16:59:00 Test Item Value Reference Range Interpretation Comments SODIUM (BEAKER) (test code = 381) 139 meq/L 135-148 POTASSIUM-STAT [id number] 16:59:00 Test Item Value Reference Range Interpretation Comments POTASSIUM (BEAKER) (test code = 4.6 meq/L 3.6-5.5 379) [id number] 16:47:00 Test Item Value Reference Range Interpretation Comments PARTIAL THROMBOPLASTIN TIME > seconds 22.5-36.0 HH (BEAKER) (test code = 760) BLOOD GAS, [id number] 16:18:00 Test Item Value Reference Range Interpretation [...] (test code = 1819) 65.0 % GLUCOSE-STAT [id number] 16:18:00 Test Item Value Reference Range Interpretation Comments GLUCOSE RANDOM (BEAKER) (test code 279 mg/dL 70-110 H = 652) HGB/HCT (H&H) - STAT [id number] 16:18:00 Test Item Value Reference Range Interpretation Comments HEMOGLOBIN (BEAKER) (test code = 7.0 g/dL 13.0-16.8 L 410) HEMATOCRIT (BEAKER) (test code = 21.0 % 40.0-50.0 L 411) SODIUM NA-STAT [id number] 16:17:00 Test Item Value Reference Range Interpretation Comments SODIUM (BEAKER) (test code = 381) 137 meq/L 135-148 POTASSIUM-STAT [id number] 16:17:00 Test Item Value Reference Range Interpretation Comments POTASSIUM (BEAKER) (test code = 4.6 meq/L 3.6-5.5 379) [id number] 16:15:00 Test Item Value Reference Range Interpretation Comments FIBRINOGEN LEVEL (BEAKER) (test 255 mg/dl 225-434 code = 658) PROTHROMBIN [id number] 16:14:00 Test Item Value Reference Range Interpretation Comments PROTIME (BEAKER) (test code = 20.2 seconds 11.7-14.7 H 759) INR (BEAKER) (test code = 370) 1.7 <=5.9 RECOMMENDED COUMADIN/WARFARIN INR THERAPY RANGESSTANDARD DOSE: 2.0 - 3.0 Includes: PROPHYLAXIS forvenous thrombosis, systemic embolization; TREATMENT for venous thrombosis and/or pulmonary embolus.HIGH RISK: Target INR is 2.5-3.5 for patients with mechanical heart valves.PLATELET [id number] 16:02:00 Test Item Value Reference Range Interpretation Comments PLATELET COUNT (BEAKER) (test code 57 K/CU MM 150-450 L = 756) CALCIUM, [id number] 15:51:00 Test Item Value Reference Range Interpretation Comments CALCIUM IONIZED (BEAKER) (test 0.82 mmol/L 1.12-1.27 L code = 698) PH, BLOOD (BEAKER) (test code = 7.45 1810) BLOOD GAS, [id number] 15:51:00 Test Item Value Reference Range Interpretation [...] (test code = 1819) 100.0 % GLUCOSE-STAT [id number] 15:51:00 Test Item Value Reference Range Interpretation Comments GLUCOSE RANDOM (BEAKER) (test code 190 mg/dL 70-110 H = 652) HGB/HCT (H&H) - STAT [id number] 15:51:00 Test Item Value Reference Range Interpretation Comments HEMOGLOBIN (BEAKER) (test code = 7.6 g/dL 13.0-16.8 L 410) HEMATOCRIT (BEAKER) (test code = 22.0 % 40.0-50.0 L 411) POTASSIUM-STAT [id number] 15:51:00 Test Item Value Reference Range Interpretation Comments POTASSIUM (BEAKER) (test code = 5.6 meq/L 3.6-5.5 H 379) SODIUM NA-STAT [id number] 15:50:00 Test Item Value Reference Range Interpretation Comments SODIUM (BEAKER) (test code = 381) 139 meq/L 135-148 BLOOD GAS, [id number] 15:43:00 Test Item Value Reference Range Interpretation [...] (test code = 1819) 75.0 % GLUCOSE-STAT [id number] 15:43:00 Test Item Value Reference Range Interpretation Comments GLUCOSE RANDOM (BEAKER) (test code 189 mg/dL 70-110 H = 652) HGB/HCT (H&H) - STAT [id number] 15:43:00 Test Item Value Reference Range Interpretation Comments HEMOGLOBIN (BEAKER) (test code = 8.0 g/dL 13.0-16.8 L 410) HEMATOCRIT (BEAKER) (test code = 24.0 % 40.0-50.0 L 411) POTASSIUM-STAT [id number] 15:43:00 Test Item Value Reference Range Interpretation Comments POTASSIUM (BEAKER) (test code = 5.7 meq/L 3.6-5.5 H 379) SODIUM NA-STAT [id number] 15:42:00 Test Item Value Reference Range Interpretation Comments SODIUM (BEAKER) (test code = 381) 136 meq/L 135-148 SODIUM NA-STAT [id number] 15:06:00 Test Item Value Reference Range Interpretation Comments SODIUM (BEAKER) (test code = 381) 139 meq/L 135-148 BLOOD GAS, [id number] 15:06:00 Test Item Value Reference Range Interpretation [...] (test code = 1819) 60.0 % POTASSIUM-STAT [id number] 15:06:00 Test Item Value Reference Range Interpretation Comments POTASSIUM (BEAKER) (test code = 5.8 meq/L 3.6-5.5 H 379) GLUCOSE-STAT [id number] 15:06:00 Test Item Value Reference Range Interpretation Comments GLUCOSE RANDOM (BEAKER) (test code 192 mg/dL 70-110 H = 652) HGB/HCT (H&H) - STAT [id number] 15:06:00 Test Item Value Reference Range Interpretation Comments HEMOGLOBIN (BEAKER) (test code = 8.2 g/dL 13.0-16.8 L 410) HEMATOCRIT (BEAKER) (test code = 24.0 % 40.0-50.0 L 411) POTASSIUM-STAT [id number] 14:41:00 Test Item Value Reference Range Interpretation Comments POTASSIUM (BEAKER) (test code = 5.2 meq/L 3.6-5.5 379) BLOOD GAS, [id number] 14:41:00 Test Item Value Reference Range Interpretation [...] code = 1819) 60.0 % SODIUM NA-STAT [id number] 14:41:00 Test Item Value Reference Range Interpretation Comments SODIUM (BEAKER) (test code = 381) 134 meq/L 135-148 L GLUCOSE-STAT [id number] 14:41:00 Test Item Value Reference Range Interpretation Comments GLUCOSE RANDOM (BEAKER) (test code 195 mg/dL 70-110 H = 652) HGB/HCT (H&H) - STAT [id number] 14:41:00 Test Item Value Reference Range Interpretation Comments HEMOGLOBIN (BEAKER) (test code = 8.2 g/dL 13.0-16.8 L 410) HEMATOCRIT (BEAKER) (test code = 24.0 % 40.0-50.0 L 411) BLOOD GAS, [id number] 14:10:00 Test Item Value Reference Range Interpretation [...] (test code = 1819) 60.0 % GLUCOSE-STAT [id number] 14:10:00 Test Item Value Reference Range Interpretation Comments GLUCOSE RANDOM (BEAKER) (test code 177 mg/dL 70-110 H = 652) HGB/HCT (H&H) - STAT [id number] 14:10:00 Test Item Value Reference Range Interpretation Comments HEMOGLOBIN (BEAKER) (test code = 8.5 g/dL 13.0-16.8 L 410) HEMATOCRIT (BEAKER) (test code = 25.0 % 40.0-50.0 L 411) SODIUM NA-STAT [id number] 14:09:00 Test Item Value Reference Range Interpretation Comments SODIUM (BEAKER) (test code = 381) 136 meq/L 135-148 POTASSIUM-STAT [id number] 14:09:00 Test Item Value Reference Range Interpretation Comments POTASSIUM (BEAKER) (test code = 5.0 meq/L 3.6-5.5 379) SODIUM NA-STAT [id number] 13:39:00 Test Item Value Reference Range Interpretation Comments SODIUM (BEAKER) (test code = 381) 136 meq/L 135-148 POTASSIUM-STAT [id number] 13:39:00 Test Item Value Reference Range Interpretation Comments POTASSIUM (BEAKER) (test code = 5.0 meq/L 3.6-5.5 379) BLOOD GAS, [id number] 13:39:00 Test Item Value Reference Range Interpretation [...] (test code = 1819) 60.0 % GLUCOSE-STAT [id number] 13:39:00 Test Item Value Reference Range Interpretation Comments GLUCOSE RANDOM (BEAKER) (test code 179 mg/dL 70-110 H = 652) HGB/HCT (H&H) - STAT [id number] 13:39:00 Test Item Value Reference Range Interpretation Comments HEMOGLOBIN (BEAKER) (test code = 8.1 g/dL 13.0-16.8 L 410) HEMATOCRIT (BEAKER) (test code = 24.0 % 40.0-50.0 L 411) CALCIUM, [id number] 12:31:00 Test Item Value Reference Range Interpretation Comments CALCIUM IONIZED (BEAKER) (test 1.09 mmol/L 1.12-1.27 L code = 698) PH, BLOOD (BEAKER) (test code = 7.45 1810) GLUCOSE-STAT [id number] 12:30:00 Test Item Value Reference Range Interpretation Comments GLUCOSE RANDOM (BEAKER) (test code = 93 mg/dL 70-110 652) SODIUM NA-STAT [id number] 12:30:00 Test Item Value Reference Range Interpretation Comments SODIUM (BEAKER) (test code = 381) 140 meq/L 135-148 POTASSIUM-STAT [id number] 12:30:00 Test Item Value Reference Range Interpretation Comments POTASSIUM (BEAKER) (test code = 3.9 meq/L 3.6-5.5 379) BLOOD GAS, [id number] 12:30:00 Test Item Value Reference Range Interpretation [...] 1819) 100.0 % HGB/HCT (H&H) - STAT [id number] 12:30:00 Test Item Value Reference Range Interpretation Comments HEMOGLOBIN (BEAKER) (test code = 9.3 g/dL 13.0-16.8 L 410) HEMATOCRIT (BEAKER) (test code = 27.0 % 40.0-50.0 L 411) HEMOGLOBIN [id number] 10:02:00 Test Item Value Reference Range Interpretation Comments HEMOGLOBIN A1C (BEAKER) (test code = 4.4 % 4.3-6.1 368) POCT-GLUCOSE [id number] 09:52:00 Test Item Value Reference Range Interpretation Comments POC-GLUCOSE METER 115 mg/dL 70-110 H TESTED AT [facility] 6720 (BEAKER) (test code = [place] 1538) [address] PROTHROMBIN [id number] 02:41:00 Test Item Value Reference Range Interpretation Comments PROTIME (BEAKER) (test code = 14.9 seconds 11.7-14.7 H 759) INR (BEAKER) (test code = 370) 1.2 <=5.9 RECOMMENDED COUMADIN/WARFARIN INR THERAPY RANGESSTANDARD DOSE: 2.0 - 3.0 Includes: PROPHYLAXIS forvenous thrombosis, systemic embolization; TREATMENT for venous thrombosis and/or pulmonary embolus.HIGH RISK: Target INR is 2.5-3.5 for patients with mechanical heart valves.BASIC METABOLIC [id number] 00:29:00 Test Item Value Reference Range Interpretation [...] S NOT APPLICABLE FOR DIALYSIS PATIEN TS. [id number] 00:22:00 Test Item Value Reference Range Interpretation Comments MAGNESIUM (BEAKER) 2.5 mg/dL 1.6-2.6 Specimen slightly (test code = 627) hemolyzed [id number] 00:14:00 Test Item Value Reference Range Interpretation Comments PARTIAL THROMBOPLASTIN TIME 38.6 seconds 22.5-36.0 H (BEAKER) (test code = 760) CBC W/PLT COUNT & AUTO [id number] 00:07:00 Test Item Value Reference Range Interpretation [...] 0-1 PERCENT (BEAKER) (test code = 2801) [id number] 17:03:00 Test Item Value Reference Range Interpretation Comments THYROID STIMULATING HORMONE 1.30 uIU/mL 0.35-4.94 (BEAKER) (test code = 772) HEPATIC FUNCTION [id number] 16:43:00 Test Item Value Reference Range Interpretation [...] 69 U/L 6-55 H 347) BASIC METABOLIC [id number] 15:47:00 Test Item Value Reference Range Interpretation [...] I S NOT APPLICABLE FOR DIALYSIS PATIEN [id number] 14:57:00 Test Item Value Reference Range Interpretation Comments PARTIAL THROMBOPLASTIN TIME 82.9 seconds 22.5-36.0 H (BEAKER) (test code = 760) CBC W/PLT COUNT & AUTO [id number] 14:48:00 Test Item Value Reference Range Interpretation [...] PERCENT (BEAKER) (test code = 2801) POCT-GLUCOSE [id number] 11:13:00 Test Item Value Reference Range Interpretation Comments POC-GLUCOSE METER 207 mg/dL 70-110 H TESTED AT [place] [address] ([facility]) (test code = [facility] 1538) [address] POCT-GLUCOSE [id number] 08:08:00 Test Item Value Reference Range Interpretation Comments POC-GLUCOSE METER 124 mg/dL 70-110 H TESTED AT [place] [address] ([facility]) (test code = [facility] 1538) [address] [id number] 06:51:00 Test Item Value Reference Range Interpretation Comments PARTIAL THROMBOPLASTIN TIME 54.6 seconds 22.5-36.0 H (BEAKER) (test code = 760) HEPATITIS B SURFACE [id number] 00:28:00 Test Item Value Reference Range Interpretation Comments HEPATITIS B SURFACE ANTIGEN (2) Nonreactive Nonreactive ([facility]) (test code = 2585) [id number] 00:06:00 Test Item Value Reference Range Interpretation Comments PHOSPHORUS (BEAKER) (test code = 3.2 mg/dL 2.3-4.7 604) [id number] 00:03:00 Test Item Value Reference Range Interpretation Comments PARTIAL THROMBOPLASTIN TIME 36.0 seconds 22.5-36.0 (BEAKER) (test code = 760) CBC W/PLT COUNT & AUTO [id number] 23:45:00 Test Item Value Reference Range Interpretation [...] EOSINOPHILS ABSOLUTE COUNT 0.10 K/ L 0.04-0.54 ([facility]) (test code = 416) BASOPHILS ABSOLUTE COUNT ([facility]) 0.03 K/ L 0.01-0.08 (test code = 417) IMMATURE GRANULOCYTES-RELATIVE 0 % 0-1 PERCENT ([facility]) (test code = 2801) POCT-GLUCOSE [id number] 17:39:00 Test Item Value Reference Range Interpretation Comments POC-GLUCOSE METER 116 mg/dL 70-110 H TESTED AT [place] [address] ([facility]) (test code = [facility] [facility] 1538) [address] [id number] 15:35:00 Test Item Value Reference Range Interpretation Comments THYROID STIMULATING HORMONE 1.39 uIU/mL 0.35-4.94 ([facility]) (test code = 772) [id number] 15:06:00 Test Item Value Reference Range Interpretation Comments PARTIAL THROMBOPLASTIN TIME 31.0 seconds 22.5-36.0 ([facility]) (test code = 760) Prior to initiating heparinPROTHROMBIN [id number] 15:05:00 Test Item Value Reference Range Interpretation Comments PROTIME ([facility]) (test code = 14.4 seconds 11.7-14.7 759) INR ([facility]) (test code = 370) 1.1 <=5.9 RECOMMENDED COUMADIN/WARFARIN INR THERAPY RANGESSTANDARD DOSE: 2.0 - 3.0 Includes: PROPHYLAXIS forvenous thrombosis, systemic embolization; TREATMENT for venous thrombosis and/or pulmonary embolus.HIGH RISK: Target INR is 2.5-3.5 for patients with mechanical heart valves.PLATELET [id number] 14:52:00 Test Item Value Reference Range Interpretation Comments PLATELET COUNT ([facility]) (test 109 K/CU MM 150-450 L code = 756) POCT-GLUCOSE [id number] 12:00:00 Test Item Value Reference Range Interpretation Comments POC-GLUCOSE METER 186 mg/dL 70-110 H TESTED AT [place] [address] ([facility]) (test code = [place] [facility] 1538) [address] RAD, CHEST, 1 VIEW, NON [id number] 11:43:00Reason for exam:->SOB, known severe MRShould this be performed at the bedside?->YesFINAL REPORT Chest one view AP 01/08/2018 11:42 AM CLINICAL INDICATION: SOB, kno wn severe MR COMPARISON: 12/02/2017 IMPRESSION: Cardiomediastinal contours are stable. There is mild pulmonary edema. There are trace bilateral pleural effusions. Signed: Yevgeniy Anderson Verified Date/Time: 01/08/2018 11:43:52 Reading Location: [facility] Radiology Reading Room Electronic ally signed by: YEVGENIY ANDERSON M.D. on 01/08/2018 11:43 AMRAPID CK-MB 2017-12-02 10:04:00 Test Item Value Reference Range Interpretation Comments RAPID CKMB (BEAKER) (test code = 1.5 ng/mL 0.0-4.3 1482) RAPID TROPONIN [id number] 10:04:00 Test Item Value Reference Range Interpretation Comments RAPID TROPONIN I (BEAKER) (test code < ng/mL <0.05 = 1483) RAD, CHEST, 2 [id number] 10:00:00Reason for exam:->Chest PainFINAL REPORT Chest two views Discussion: Heart size upper limits of normal. Bilateral interstitial edema with small bilateral effusions. No pneumothorax. Bones and soft tissues unremarkable. Signed: Rhea Colindres Verified Date/Time: 12/02/2017 10:00:39 Reading Location:[facility] Radiology Reading Room B-TYPE NATRIURETIC FACTOR (BNP)2017-12-02 09:56:00 Test Item Value Reference Range Interpretation Comments B-TYPE NATRIURETIC PEPTIDE 1990 pg/mL 0-100 H (BEAKER) (test code = 700) BASIC METABOLIC [id number] 09:52:00 Test Item Value Reference Range Interpretation [...] S NOT APPLICABLE FOR DIALYSIS PATIEN TS. [id number] 09:51:00 Test Item Value Reference Range Interpretation Comments MAGNESIUM (BEAKER) (test code = 1.7 mg/dL 1.5-3.0 627) CBC W/PLT COUNT & AUTO [id number] 09:50:00 Test Item Value Reference Range Interpretation [...] (BEAKER) (test code = 417) CD4/CD8 Ratio [id number] 08:04:00 Test Item Value Reference Range Interpretation Comments Absolute CD 4 Mystic (test code 188 /uL 359-1519 L = 158317) % CD 4 Pos. Lymph. (test code = 37.6 % 30.8-58.5 N 687582) Abs. CD 8 Suppressor (test code 183 /uL 109-897 N = 773352) % CD 8 Pos. Lymph. (test code = 36.6 % 12.0-35.5 H 457242) CD4/CD8 Ratio (test code = 1.03 0.92-3.72 N 096088) WBC (test code = 862714) 5.0 x10E3/uL 3.4-10.8 N RBC (test code = 387844) 3.00 x10E6/uL 4.14-5.80 L Hemoglobin (test code = 266880) 9.6 g/dL 13.0-17.7 L Hematocrit (test code = 110109) 27.6 % 37.5-51.0 L MCV (test code = 725658) 92 fL 79-97 N MCH (test code = 126296) 32.0 pg 26.6-33.0 N MCHC (test code = 590275) 34.8 g/dL 31.5-35.7 N RDW (test code = 558974) 15.5 % 12.3-15.4 H Platelets (test code = 537058) 113 x10E3/uL 150-379 L Neutrophils (test code = 84 % Not Estab. N 680744) Lymphs (test code = 401930) 9 % Not Estab. N Monocytes (test code = 020482) 6 % Not Estab. N Eos (test code = 297513) 1 % Not Estab. N Basos (test code = 400992) 0 % Not Estab. N Neutrophils (Absolute) (test 4.2 x10E3/uL 1.4-7.0 N code = 305734) Lymphs (Absolute) (test code = 0.5 x10E3/uL 0.7-3.1 L 056295) Monocytes(Absolute) (test code 0.3 x10E3/uL 0.1-0.9 N = 986223) Eos (Absolute) (test code = 0.0 x10E3/uL 0.0-0.4 N 493819) Baso (Absolute) (test code = 0.0 x10E3/uL 0.0-0.2 N 702704) Immature Granulocytes (test 0 % Not Estab. N code = 441294) Immature Grans (Abs) (test code 0.0 x10E3/uL 0.0-0.1 N = 658734) Culture, Blood [id number] 08:42:00Specimen: BloodCollected: 11/19/2017 00:21 Status: Final Last Updated: 11/24/2017 08:42 Culture Result (Final) (Final) No Growth After 5 DaysCulture, Blood [id number] 08:42:00 Specimen: BloodCollected: 11/18/2017 20:30 Status: Final Last Updated: 11/24/2017 08:42 Culture Result (Final) (Final) No Growth After 5 DaysPOC Glucose, [id number] 11:51:00 Test Item Value Reference Range Interpretation Comments POC Glucose (test 148 mg/dL 70-115 H Notify RN or MDIf you code = POCGLUC) consider you r patient critically ill, the Madeline Accu-Chek InformII metershould not be used for Glucose determinations. Draw a venous Glucose and send to the Main Lab for Analysis. NIKITA [id number] 07:42:00 Test Item Value Reference Range Interpretation Comments CK (test code = CK) na U/L 39-308 N CKMB (test code = CKMB) 4.0 ng/mL 0.0-4.9 N CKMB% (test code = CKMBP) 0.0 % 0.0-3.4 N [id number] 07:39:00 Test Item Value Reference Range Interpretation Comments NT ProBnp (test code = PBNP) >99761 pg/mL 0-124 H Troponin [id number] 07:18:00 Test Item Value Reference Range Interpretation Comments Troponin T (test code = MADHAV) 0.103 ng/mL 0.000-0.090 H Lactate [id number] 07:18:00 Test Item Value Reference Range Interpretation Comments LDH (test code = LDH) 271 U/L 135-225 H POC Glucose, [id number] 06:50:00 Test Item Value Reference Range Interpretation Comments POC Glucose (test 154 mg/dL 70-115 H Notify RN or MDIf you code = POCGLUC) consider you r patient critically ill, the Madeline Accu-Chek InformII metershould not be used for Glucose determinations. Draw a venous Glucose and send to the Main Lab for Analysis. CK [id number] 01:08:00 Test Item Value Reference Range Interpretation Comments CK (test code = CK) na U/L 39-308 N CKMB (test code = CKMB) 3.6 ng/mL 0.0-4.9 N CKMB% (test code = CKMBP) 0.0 % 0.0-3.4 N Troponin [id number] 01:08:00 Test Item Value Reference Range Interpretation Comments Troponin T (test code = MADHAV) 0.106 ng/mL 0.000-0.090 H XR CHEST 1 [id number] 21:02:01CLINICAL INFORMATION: Vascular congestion.Dictation Location: R 16Comparison: 11/18/2017 showed perihilar and lower lobe opacities. Technique: Portable AP 1950 hoursFINDINGS: Monitoring electrodes overlie the chest wall. Cardiomegaly withincreasing central vascular interstitial prominence with bibasilaropacities and effusions. No interval bone changes.IMPRESSION: Changes could indicate worsening cardiac decompensation orfluid overload.POC Glucose, [id number] 20:15:00 Test Item Value Reference Range Interpretation Comments POC Glucose (test 139 mg/dL 70-115 H If you con energy analyst your code = POCGLUC) patient crit ically ill, the Madeline Accu- Chek InformII meters hould not be used for Glu cose determinations. Draw a venous Glucose and send to the Main Lab for Analysis. POC Glucose, [id number] 16:52:00 Test Item Value Reference Range Interpretation Comments POC Glucose (test 123 mg/dL 70-115 H If you con energy analyst your code = POCGLUC) patient crit ically ill, the Madeline Accu- Chek InformII meters hould not be used for Glu cose determinations. Draw a venous Glucose and send to the Main Lab for Analysis. POC Glucose, [id number] 12:04:00 Test Item Value Reference Range Interpretation Comments POC Glucose (test 140 mg/dL 70-115 H If you con energy analyst your code = POCGLUC) patient crit ically ill, the Madeline Accu- Chek InformII meters hould not be used for Glu cose determinations. Draw a venous Glucose and send to the Main Lab for Analysis. POC Glucose, [id number] 08:01:00 Test Item Value Reference Range Interpretation Comments POC Glucose (test 126 mg/dL 70-115 H If you con energy analyst your code = POCGLUC) patient crit ically ill, the Madeline Accu- Chek InformII meters hould not be used for Glu cose determinations. Draw a venous Glucose and send to the Main Lab for Analysis. CK [id number] 06:03:00 Test Item Value Reference Range Interpretation Comments CK (test code = CK) na U/L 39-308 N CKMB (test code = CKMB) 2.8 ng/mL 0.0-4.9 N CKMB% (test code = CKMBP) 0.0 % 0.0-3.4 N Basic Metabolic [id number] 05:51:00 Test Item Value Reference Range Interpretation [...] into account, if the informationis provided. If e race is not provided , and the patient isAfrican-Ameri can, multiply by 1.2 12. If sex is not prov ided, and thepatient is female, multipl y by 0.742. Results for patients <18 ye ars ofage have not been validated by e MDRD study and viktorul d be interpretedwith caution.eGFR Re sult Interpretation: eGFR > or = 60 is in t he Normal RangeeGF R < 60 may mean kidney diseaseeGFR < 1 5 may mean kidney failureRange s recommended by the National Kidney Foundation,http ://nkd ep.nih.gov Magnesium, [id number] 05:51:00 Test Item Value Reference Range Interpretation Comments Magnesium (test code = MG) 1.9 mg/dL 1.7-2.5 N [id number] 05:51:00 Test Item Value Reference Range Interpretation Comments Phosphorus (test code = PO4) 3.8 mg/dL 2.70-4.50 N [id number] 05:51:00 Test Item Value Reference Range Interpretation Comments NT ProBnp (test code = PBNP) >08588 pg/mL 0-124 H Troponin [id number] 05:51:00 Test Item Value Reference Range Interpretation Comments Troponin T (test code = MADHAV) 0.126 ng/mL 0.000-0.090 H CBC with [id number] 05:34:00 Test Item Value Reference Range Interpretation [...] code = ALYMPH) 0.4 K/cumm 0.5-4.6 L Glenn Abs (test code = AMONO) 0.6 K/cumm 0.0-1.2 N Eos Abs (test code = AEOS) 0.13 K/cumm 0.00-0.74 N Baso Abs (test code = ABASO) 0.0 K/cumm 0.00-0.21 N CK [id number] 18:39:00 Test Item Value Reference Range Interpretation Comments CK (test code = CK) HIDE U/L 39-308 N CKMB (test code = CKMB) 3.2 ng/mL 0.0-4.9 N CKMB% (test code = CKMBP) HIDE % 0.0-3.4 N Troponin [id number] 18:39:00 Test Item Value Reference Range Interpretation Comments Troponin T (test code = MADHAV) 0.126 ng/mL 0.000-0.090 H Hep B Surface [id number] 18:39:00 Test Item Value Reference Range Interpretation Comments Hep Bs Ag (test code = HBSAG) Nonreactive Non-Reactive A POC Glucose, [id number] 16:47:00 Test Item Value Reference Range Interpretation Comments POC Glucose (test 143 mg/dL 70-115 H If you con energy analyst your code = POCGLUC) patient crit ically ill, the Madeline Accu- Chek InformII meters hould not be used for Glu cose determinations. Draw a venous Glucose and send to the Main Lab for Analysis. XR CHEST 1 [id number] 08:18:18EXAM: Portable AP chest x-rayLOCATION: R16 INDICATION: CoughCOMPARISON: 11/07/2017FINDINGS:The cardiacsilhouette is stable enlargement. There are increasinginterstitial opacities, most evident in the per ihilar regions and lowerlobes. There is blunting of the costophrenic angles bilaterally. Thereis no discernible pneumothorax.IMPRESSION:Increasing perihilar and bilateral lower lobe opacities compared to theprior exam dated 11/07/2017. Findings may represent pulmonary edema orpneumonia in the appropriate clinical setting.Comprehensive Metabolic [id number] 08:05:00 Test Item Value Reference Range Interpretation [...] the National Kidney Foundation,http ://nkd ep.nih.gov CK [id number] 08:05:00 Test Item Value Reference Range Interpretation Comments CK (test code = CK) 149 U/L 39-308 N Troponin [id number] 08:02:00 Test Item Value Reference Range Interpretation Comments Troponin T (test code = MADHAV) 0.114 ng/mL 0.000-0.090 H [id number] 08:02:00 Test Item Value Reference Range Interpretation Comments NT ProBnp (test code = PBNP) >87010 pg/mL 0-124 H CBC with [id number] 07:53:00 Test Item Value Reference Range Interpretation [...] code = ALYMPH) 0.9 K/cumm 0.5-4.6 N Glenn Abs (test code = AMONO) 0.4 K/cumm 0.0-1.2 N Eos Abs (test code = AEOS) 0.11 K/cumm 0.00-0.74 N Baso Abs (test code = ABASO) 0.0 K/cumm 0.00-0.21 N XR CHEST 1 [id number] 21:38:09EXAM: CHEST ONE VIEWINDICATION: CoughCOMPARISON: February 4, 2018TECHNIQUE: AP view of the chest.FINDINGS: The cardiomediastinal silhouette is unchanged. Mild congestive changesbilaterally. No pneumothorax or pleural effusion is identified. Theosseous structures are unremarkable.IMPRESSION: Diffuse congestive changes bilaterally.LOCATION: R16US DUPLX EXT VEINS QIAN, [id number] 20:09:34AFTER HOURS SERVICE ON: 10/06/2017 8:09 PMRIGHT Lower Extremity Venous Duplex Doppler ExaminationLocation Code V29Rhjwamx: SwellingTechnique: Real-time castillo scale, Doppler spectral analysis [...] Lower Extremity Venous Duplex Doppler ExaminationLocation Code M57Rrbil ry: SwellingTechnique: Real-time castillo scale, Doppler spectral [...] of DVT in the imaged vessels.Comprehensive Metabolic [id number] 17:40:00 Test Item Value Reference Range Interpretation [...] National Kidney Foundation,http ://nkd ep.nih.gov CBC with [id number] 17:15:00 Test Item Value Reference Range Interpretation [...] code = ALYMPH) 1.3 K/cumm 0.5-4.6 N Glenn Abs (test code = AMONO) 0.6 K/cumm 0.0-1.2 N Eos Abs (test code = AEOS) 0.12 K/cumm 0.00-0.74 N Baso Abs (test code = ABASO) 0.0 K/cumm 0.00-0.21 N XR CHEST 1 [id number] 16:56:42CHEST 1 VIEW: [id number]: coughCOMPARISON:Sep 24, 2017FINDINGS:The heart is enlarged. There is engorgement of the central pulmonaryvasculature. There are patchy bibasilar areas of infiltrate oratelectasis with bilateral effusions. No pneumothorax is present. IMPRESSION: 1. Patchy areas of atelectasis or infiltrate in the lung bases withsmall bilateral effusions and vascular congestion most likely secondaryto CHF.Culture, Blood [id number] 14:58:00Specimen: BloodCollected: 09/24/2017 13:05 Status: Final Last Updated: 09/29/2017 14:58 (1) ER Bed 1 Culture Result (Final) (Final) No Growth After 5 DaysCulture, Blood [id number] 14:58:00Specimen: BloodCollected: 09/24/2017 12:50 Status: Final Last Updated: 09/29/2017 14:58 (1) ER Bed 1 Culture Result (Final) (Final) No Growth After 5 DaysPOC Glucose, [id number] 10:54:00 Test Item Value Reference Range Interpretation Comments POC Glucose (test 168 mg/dL 70-115 H If you con energy analyst your code = POCGLUC) patient crit ically ill, the [facility]eline Accu- Chek InformII meters hould not be used for Glu cose determinations. Draw a venous Glucose and send to the Main Lab for Analysis. POC Glucose, [id number] 07:16:00 Test Item Value Reference Range Interpretation Comments POC Glucose (test 143 mg/dL 70-115 H If you con energy analyst your code = POCGLUC) patient crit ically ill, the Madeline Accu- Chek InformII meters hould not be used for Glu cose determinations. Draw a venous Glucose and send to the Main Lab for Analysis. CBC with [id number] 07:15:00 Test Item Value Reference Range Interpretation [...] code = ALYMPH) 1.3 K/cumm 0.5-4.6 N Glenn Abs (test code = AMONO) 0.7 K/cumm 0.0-1.2 N Eos Abs (test code = AEOS) 0.07 K/cumm 0.00-0.74 N Baso Abs (test code = ABASO) 0.0 K/cumm 0.00-0.21 N Magnesium, [id number] 07:03:00 Test Item Value Reference Range Interpretation Comments Magnesium (test code = MG) 2.0 mg/dL 1.7-2.5 N Basic Metabolic [id number] 07:03:00 Test Item Value Reference Range Interpretation [...] is not provided , and the patient isAfrican-Amelijah can, multiply by 1.2 12. If sex is not prov ided, and thepatient is female, multipl y by 0.742. Results for patients <18 ye ars ofage have not been validated by e MDRD study and yakelin d be interpretedwith caution.eGFR Re sult Interpretation: eGFR > or = 60 is in t he Normal RangeeGF R < 60 may mean kidney diseaseeGFR < 1 5 may mean kidney failureRange s recommended by the National Kidney Foundation,http ://nkd ep.nih.gov POC Glucose, [id number] 21:40:00 Test Item Value Reference Range Interpretation Comments POC Glucose (test 129 mg/dL 70-115 H If you con energy analyst your code = POCGLUC) patient crit ically ill, the Madeline Accu- Chek InformII meters hould not be used for Glu cose determinations. Draw a venous Glucose and send to the Main Lab for Analysis. Hep B Surface [id number] 18:36:00 Test Item Value Reference Range Interpretation Comments Hep Bs Ag (test code = HBSAG) Nonreactive Non-Reactive A POC Glucose, [id number] 10:51:00 Test Item Value Reference Range Interpretation Comments POC Glucose (test 216 mg/dL 70-115 H If you con energy analyst your code = POCGLUC) patient crit ically ill, the Madeline Accu- Chek InformII meters hould not be used for Glu cose determinations. Draw a venous Glucose and send to the Main Lab for Analysis. POC Glucose, [id number] 07:57:00 Test Item Value Reference Range Interpretation Comments POC Glucose (test 164 mg/dL 70-115 H If you con energy analyst your code = POCGLUC) patient crit ically ill, the Madeline Accu- Chek InformII meters hould not be used for Glu cose determinations. Draw a venous Glucose and send to the Main Lab for Analysis. POC Glucose, [id number] 19:47:00 Test Item Value Reference Range Interpretation Comments POC Glucose (test 140 mg/dL 70-115 H Notify RN or MDIf you code = POCGLUC) consider you r patient critically ill, the Madeline Accu-Chek InformII metershould not be used for Glucose determinations. Draw a venous Glucose and send to the Main Lab for Analysis. Troponin [id number] 19:36:00 Test Item Value Reference Range Interpretation Comments Troponin T (test code = MADHAV) 0.121 ng/mL 0.000-0.090 H CK [id number] 19:25:00 Test Item Value Reference Range Interpretation Comments CK (test code = CK) 160 U/L 39-308 N The valu e HIDE originally released by [facility] on 09/25/2017 19:1 2 waschanged to 1 60 by Ossia on 09/25 19:24 CKMB (test code = 3.0 ng/mL 0.0-4.9 N CKMB) CKMB% (test code = 1.9 % 0.0-3.4 N The value HIDE originally CKMBP) released by [facility] on 09/25/2017 19:1 2 waschanged to 1 .9 by Barburrito on 09/25 19:24 POC Glucose, [id number] 16:42:00 Test Item Value Reference Range Interpretation Comments POC Glucose (test 123 mg/dL 70-115 H If you con energy analyst your code = POCGLUC) patient crit ically ill, the Madeline Accu- Chek InformII meters hould not be used for Glu cose determinations. Draw a venous Glucose and send to the Main Lab for Analysis. POC Glucose, [id number] 12:09:00 Test Item Value Reference Range Interpretation Comments POC Glucose (test 141 mg/dL 70-115 H If you con energy analyst your code = POCGLUC) patient crit ically ill, the Madeline Accu- Chek InformII meters hould not be used for Glu cose determinations. Draw a venous Glucose and send to the Main Lab for Analysis. Hep B Surface [id number] 07:59:00 Test Item Value Reference Range Interpretation Comments Hep Bs Ag (test code = HBSAG) Nonreactive Non-Reactive A CK [id number] 07:43:00 Test Item Value Reference Range Interpretation Comments CK (test code = CK) n/a U/L 39-308 N CKMB (test code = CKMB) 2.4 ng/mL 0.0-4.9 N CKMB% (test code = CKMBP) 0.0 % 0.0-3.4 N Troponin [id number] 07:38:00 Test Item Value Reference Range Interpretation Comments Troponin T (test code = MADHAV) 0.134 ng/mL 0.000-0.090 H Thyroid Stimulating Hormone (TSH)2017-09-25 07:38:00 Test Item Value Reference Range Interpretation Comments TSH (test code = TSH) 1.10 mIU/mL 0.270-4.200 N [id number] 07:38:00 Test Item Value Reference Range Interpretation Comments Phosphorus (test code = PO4) 3.4 mg/dL 2.70-4.50 N Comprehensive Metabolic [id number] 07:38:00 Test Item Value Reference Range Interpretation [...] the National Kidney Foundation,http ://nkd ep.nih.gov Magnesium, [id number] 07:38:00 Test Item Value Reference Range Interpretation Comments Magnesium (test code = MG) 2.0 mg/dL 1.7-2.5 N CK [id number] 07:31:00 Test Item Value Reference Range Interpretation Comments CK (test code = CK) 159 U/L 39-308 N Lipid [id number] 07:31:00 Test Item Value Reference Range Interpretation Comments Cholesterol (test 118 mg/dL 0-200 N code = CHOL) Triglycerides (test 170 mg/dL 9-200 N code = TRIG) HDL (test code = 49 mg/dL 40-60 N HDL) Chol/HDL (test code 2.4 Ratio 0.0-5.0 N = CHOLPHDL) LDL, Calculated 35 0-130 N (NOTE)RISK O F HEART (test code = LDLC) DISEASEPu blished by [place] Heart AssociationAnal yte Optim al Boderline Increased RiskC HOL <200 200-239 >240TRI G <150 150-199 >200HDL Male: >60 <40HDL Female: >60 <50 LDL < 100 130-15 9 >160 LDL NEAR OPTIMAL IS 100- 129 VLDL (test code = 34 mg/dL 5-40 N VLDL) LDL/HDL (test code = 1 LDLPHDL) Glycosylated [id number] 07:24:00 Test Item Value Reference Range Interpretation Comments HBA1c (test code = HBA1C) 5.0 % 4.8-5.9 N CBC with [id number] 07:20:00 Test Item Value Reference Range Interpretation [...] code = ALYMPH) 0.8 K/cumm 0.5-4.6 N Glenn Abs (test code = AMONO) 0.5 K/cumm 0.0-1.2 N Eos Abs (test code = AEOS) 0.10 K/cumm 0.00-0.74 N Baso Abs (test code = ABASO) 0.0 K/cumm 0.00-0.21 N POC Glucose, [id number] 07:03:00 Test Item Value Reference Range Interpretation Comments POC Glucose (test 147 mg/dL 70-115 H If you con energy analyst your code = POCGLUC) patient crit ically ill, the Madeline Accu- Chek InformII meters hould not be used for Glu cose determinations. Draw a venous Glucose and send to the Main Lab for Analysis. POC Glucose, [id number] 22:05:00 Test Item Value Reference Range Interpretation Comments POC Glucose (test 134 mg/dL 70-115 H If you con energy analyst your code = POCGLUC) patient crit ically ill, the Madeline Accu- Chek InformII meters hould not be used for Glu cose determinations. Draw a venous Glucose and send to the Main Lab for Analysis. Blood Gas+Lytes+Glu+Ca+Hgb+Hct+[id number] 18:31:00 Test Item Value Reference Range Interpretation [...] (test code = alokrblvverqnscrit COMMENT) liz Pierre@ [id number] Puncture Site (test code = Radial. R PUNSITE) Drawing Tech ID (test code gianfranco fi = DRAWTECH) iPAP (test code = IPAP) 0 cmH2O Respiratory Rate (test code 0 = RESP RATE) Lactic Acid, Blood Gas 0.4 mmol/L (test code = BGLA) CT CHEST W/O [id number] 16:48:03CT CHEST W/O CONTRASTLOCATION CODE: R16 HISTORY: [...] bilateral axillary, prevascular, andparatracheal lymph nodes.Influenza B [id number] 14:36:00Specimen: NasalCollected: 09/24/2017 14:04 Status: Final Last [...] the National Kidney Foundation,http ://nkd ep.nih.gov Troponin [id number] 13:54:00 Test Item Value Reference Range Interpretation Comments Troponin T (test code = MADHAV) 0.124 ng/mL 0.000-0.090 H [id number] 13:54:00 Test Item Value Reference Range Interpretation Comments NT ProBnp (test code = PBNP) >14356 pg/mL 0-124 H CK [id number] 13:54:00 Test Item Value Reference Range Interpretation Comments CK (test code = CK) 222 U/L 39-308 N CKMB (test code = CKMB) 3.1 ng/mL 0.0-4.9 N CKMB% (test code = CKMBP) 1.4 % 0.0-3.4 N CK [id number] 13:54:00 Test Item Value Reference Range Interpretation Comments CK (test code = CK) 222 U/L 39-308 N Partial Thromboplastin [id number] 13:43:00 Test Item Value Reference Range Interpretation Comments aPTT (test code = PTT) 35.70 seconds 24.39-37.25 N Prothrombin [id number] 13:43:00 Test Item Value Reference Range Interpretation Comments PT (test code = PT) 11.30 seconds 9.78-13.35 N INR (test code = INR) 0.99 Ratio 0.6-1.2 N Lactic Acid [id number] 13:41:00 Test Item Value Reference Range Interpretation Comments Lactic Acid, Bld (test code = LAC) 1.3 mmol/L 0.5-1.9 N CBC with [id number] 13:32:00 Test Item Value Reference Range Interpretation [...] code = ALYMPH) 1.2 K/cumm 0.5-4.6 N Glenn Abs (test code = AMONO) 0.6 K/cumm 0.0-1.2 N Eos Abs (test code = AEOS) 0.23 K/cumm 0.00-0.74 N Baso Abs (test code = ABASO) 0.0 K/cumm 0.00-0.21 N XR CHEST 1 [id number] 12:50:14XR CHEST 1 VIEWLOCATION: [id number]: None.INDICATION: CoughDISCUSSION:A single portable chest radiograph was [...]
[2020-04-18 15:35] LABS: Basophils % 0.5 % (0-1.3); Lymphocytes % 17.7 % (15.3-44.8); MPV 6.3 fL (7.6-11.3); RBC Red Blood Cell Count 2.99 M/uL (4.33-5.43)
--- NOTE | 2020-04-18 16:05 | RAD REPORT ---
EXAM DESCRIPTION: RAD - Chest Single View - 04/18/2020 3:58 pm CLINICAL HISTORY: Cough;Dyspnea Chest pain. COMPARISON: Chest Pa And Lat (2 Views) dated 09/11/2019; Chest Pa And Lat (2 Views) dated 07/30/2019; Chest Single View dated 07/29/2019; Chest Single View dated 03/08/2019 FINDINGS: Portable technique limits examination quality. Mild bilateral pulmonary edema is seen. Small moderate bilateral pleural effusions seen, greatest on the left. The heart is moderately enlarged with sternotomy wires present. IMPRESSION: Mild to moderate CHF versus volume overload pattern.
[2020-04-18 16:23] LABS: BUN Blood Urea Nitrogen 44 mg/dL (7-18); Bicarbonate 33 mmol/L (21-32); Glucose Level 115 mg/dL (74-106); NT PRO-BNP 126237 pg/mL (<125); Potassium 4.3 mmol/L (3.5-5.1); Sodium Level 137 mmol/L (136-145); Troponin (Emerg Dept Use Only) < 0.02 ng/mL (0.0-0.045)
--- NOTE | 2020-04-18 16:47 | EDPHYS ---
Physician Documentation [facility] Name: Salvatore Goldman Age: 64 yrs Sex: Male : 1955 Arrival Date: 04/18/2020 Time: 13:03 Bed 6 Private MD: ED Physician Manuel Montgomery HPI: 04/18 16:26 This 64 yrs old Black Male presents to ER via Wheelchair with complaints of Shortness rn Of Breath. 16:26 The patient has shortness of breath at rest, with light activity. Onset: The rn symptoms/episode began/occurred yesterday. Duration: The symptoms are intermittent. The patient's shortness of breath is aggravated by exertion, is alleviated by rest. Severity of symptoms: At their worst the symptoms were moderate in the emergency department the symptoms have improved. The patient has experienced similar episodes in the past. Reports dialysis T/Th/S, denies fever or new cough, + dyspnea on exertion, due for dialysis tomorrow, no hemoptysis. . Historical: - Allergies: 13:14 codeine sulfate (DIZZINESS); ca1 - PMHx: 13:14 Cirrhosis; Diabetes - NIDDM; Dialysis; heart valve; Hepatitis; HIV; Hyperlipidemia; ca1 Karposi Sarcoma (left leg); kidney failure; L arm HD access; - PSHx: 13:14 left forearm dialysis fistula; partial lobectomy right; CABG; heart valve replacement; ca1 - Immunization history:: Adult Immunizations up to date. - Social history:: Smoking status: Patient denies any tobacco usage or history of. - Family history:: not pertinent. - Hospitalizations: : No recent hospitalization is reported. ROS: 16:26 Constitutional: Negative for fever, chills, and weight loss, Eyes: Negative for injury, rn pain, redness, and discharge, Neck: Negative for injury, pain, and swelling, Cardiovascular: Negative for chest pain, palpitations Respiratory: Negative for cough, wheezing, and pleuritic chest pain, Abdomen/GI: Negative for abdominal pain, nausea, vomiting, diarrhea, and constipation, Skin: Negative for injury, rash, and discoloration, Neuro: Negative for headache, weakness, numbness, tingling, and seizure. Exam: 16:39 Constitutional: This is a well developed, well nourished patient who is awake, alert, rn and in no acute distress. Head/Face: Normocephalic, atraumatic. Cardiovascular: Regular rate and rhythm. No pulse deficits. Respiratory: + mild crackles at bases, no retractions. No increased work of breathing, no retractions or nasal flaring. Abdomen/GI: soft, non-tender Skin: Warm, dry MS/ Extremity: Pulses equal, no cyanosis. Neurovascular intact. Full, normal range of motion. Equal circumference. Neuro: Awake and alert, GCS 15 16:49 ECG was reviewed by the Attending Physician. rn Vital Signs: 13:09 BP 163 / 88; Pulse 80; Resp 18 S; Temp 98.9(O); Pulse Ox 98% on R/A; Weight 72.57 kg; ca1 Height 5 ft. 7 in. (170.18 cm) (R); 13:09 Body Mass Index 25.06 (72.57 kg, 170.18 cm) ca1 MDM: 14:32 Patient medically screened. rn 16:39 Differential diagnosis: Anemia pneumonia, pulmonary edema, ESRD. Data reviewed: vital rn signs, nurses notes, lab test result(s), radiologic studies, plain films, and as a result, I will discharge patient. Counseling: I had a detailed discussion with the patient and/or guardian regarding: the historical points, exam findings, and any diagnostic results supporting the discharge/admit diagnosis, lab results. 16:47 ED course: labs and CXR consistent with ESRD and pulmonary edema, no oxygen rn requirement, after discussion with patient, he chooses to go home and wait for dialysis tomorrow, return precautions given and understood.. 04/18 14:48 Order name: Blood Culture Adult (2) rn 04/18 14:48 Order name: BMP; Complete Time: 16:25 rn 04/18 14:48 Order name: XRAY CXR (1 view); Complete Time: 16:24 rn 04/18 14:48 Order name: CBC with Diff; Complete Time: 15:58 rn 04/18 14:48 Order name: NT PRO-BNP; Complete Time: 16:25 rn 04/18 14:48 Order name: Troponin (emerg Dept Use Only); Complete Time: 16:25 rn 04/18 14:48 Order name: EKG; Complete Time: 14:49 rn 04/18 14:48 Order name: Cardiac monitoring; Complete Time: 16:49 rn 04/18 14:48 Order name: EKG - Nurse/Tech; Complete Time: 16:49 rn 04/18 14:48 Order name: IV Saline Lock; Complete Time: 15: rn 04/18 14:48 Order name: Labs collected and sent; Complete Time: 15: rn 04/18 14:48 Order name: O2 Per Protocol; Complete Time: 15: rn 04/18 14:48 Order name: O2 Sat Monitoring; Complete Time: 15: rn EC:49 Rate is 76 beats/min. Rhythm is regular. QRS [place] is Normal. RI interval is normal. QRS rn interval is normal. QT interval is normal. No Q waves. T waves are Normal. No ST changes noted. Clinical impression: Normal ECG. Interpreted by me. Reviewed by me. Administered Medications: No medications were administered Disposition: 04/18/20 16:46 Discharged to Home. Impression: End stage renal disease, Pulmonary edema. - Condition is Stable. - Discharge Instructions: Pulmonary Edema, Dialysis, End-Stage Kidney Disease. - Medication Reconciliation Form, Thank You Letter, Antibiotic Education, Prescription Opioid Use form. - Follow up: Private Physician; When: Tomorrow; Reason: Recheck today's complaints, Re-evaluation by your physician. - Problem is new. - Symptoms are unchanged. Signatures: Dispatcher [employer] EDGela Chris RN RN iw Nieto, Roman, MD MD rn Acob, LAURYN Malik RN ca1 Corrections: (The following items were deleted from the chart) 16:39 16:26 Constitutional: Negative for fever, chills, and weight loss, Eyes: Negative for rn injury, pain, redness, and discharge, Neck: Negative for injury, pain, and swelling, Cardiovascular: Negative for chest pain, palpitations Respiratory: Negative for cough, wheezing, and pleuritic chest pain, Abdomen/GI: Negative for abdominal pain, nausea, vomiting, diarrhea, and constipation, rn 17:36 16:46 04/18/2020 16:46 Discharged to Home. Impression: End stage renal disease; iw Pulmonary edema. Condition is Stable. Forms are Medication Reconciliation Form, Thank You Letter, Antibiotic Education, Prescription Opioid Use. Follow up: Private Physician; When: Tomorrow; Reason: Recheck today's complaints, Re-evaluation by your physician. Problem is new. Symptoms are unchanged. rn
--- NOTE | 2020-04-18 16:47 | ER ---
Nurse's Notes [facility] Name: Salvatore Goldman Age: 64 yrs Sex: Male : 1955 Arrival Date: 04/18/2020 Time: 13:03 Bed 6 Private MD: Diagnosis: End stage renal disease;Pulmonary edema Presentation: 04/18 13:09 Chief complaint: Patient states: Dialysis pt, scheduled T,TH,S. SOB at rest since this ca1 morning. Denies cough. Coronavirus screen: Client denies travel out of the [place] in the last 14 days. At this time, the client does not indicate any symptoms associated with coronavirus-19. The client reports previous COVID testing was negative. Date of collection: March 2020 In a Rehab facility([facility]) after I broke my hip in March. Ebola Screen: Patient negative for fever greater than or equal to 101.5 degrees Fahrenheit, and additional compatible Ebola Virus Disease symptoms Patient denies exposure to infectious person. Patient denies travel to an Ebola-affected area in the 21 days before illness onset. No symptoms or risks identified at this time. Initial Sepsis Screen: Does the patient meet any 2 criteria? No. Patient's initial sepsis screen is negative. Does the patient have a suspected source of infection? No. Patient's initial sepsis screen is negative. Risk Assessment: Do you want to hurt yourself or someone else? Patient reports no desire to harm self or others. Onset of symptoms was April 18, 2020. 13:09 Method Of Arrival: Wheelchair ca1 13:09 Acuity: NARDA 3 ca1 Triage Assessment: 13:14 General: Appears in no apparent distress. comfortable, Behavior is calm, cooperative, ca1 appropriate for age. Pain: Denies pain. Respiratory: Reports shortness of breath at rest Airway is patent Respiratory effort is even, unlabored, Respiratory pattern is regular, symmetrical. Historical: - Allergies: 13:14 codeine sulfate (DIZZINESS); ca1 - PMHx: 13:14 Cirrhosis; Diabetes - NIDDM; Dialysis; heart valve; Hepatitis; HIV; Hyperlipidemia; ca1 Karposi Sarcoma (left leg); kidney failure; L arm HD access; - PSHx: 13:14 left forearm dialysis fistula; partial lobectomy right; CABG; heart valve replacement; ca1 - Immunization history:: Adult Immunizations up to date. - Social history:: Smoking status: Patient denies any tobacco usage or history of. - Family history:: not pertinent. - Hospitalizations: : No recent hospitalization is reported. Screenin:36 Abuse screen: Denies threats or abuse. Denies injuries from another. Nutritional iw screening: No deficits noted. Tuberculosis screening: No symptoms or risk factors identified. Fall Risk None identified. Assessment: 14:40 General: Appears in no apparent distress. comfortable, well developed, Behavior is sv calm, cooperative, appropriate for age. Pain: Denies pain. Neuro: Level of Consciousness is awake, alert, obeys commands, Oriented to person, place, time, situation, Moves all extremities. Full function Gait is steady, Speech is normal. Cardiovascular: Patient's skin is warm and dry. Rhythm is sinus rhythm. Respiratory: Reports shortness of breath at rest Airway is patent Respiratory effort is even, unlabored, Respiratory pattern is regular, symmetrical. Derm: Skin is pink, warm \T\ dry. 16:20 Reassessment: Patient appears in no apparent distress at this time. No changes from sv previously documented assessment. Patient and/or family updated on plan of care and expected duration. Pain level reassessed. Patient is alert, oriented x 3, equal unlabored respirations, skin warm/dry/pink. Vital Signs: 13:09 BP 163 / 88; Pulse 80; Resp 18 S; Temp 98.9(O); Pulse Ox 98% on R/A; Weight 72.57 kg; ca1 Height 5 ft. 7 in. (170.18 cm) (R); 13:09 Body Mass Index 25.06 (72.57 kg, 170.18 cm) ca1 ED Course: 13:03 Patient arrived in ED. as 13:13 Triage completed. ca1 13:14 Arm band placed on right wrist. ca1 14:31 Manuel Montgomery MD is Attending Physician. rn 14:36 Becky Ricardo RN is Primary Nurse. sv 14:40 Patient has correct armband on for positive identification. Placed in gown. Bed in low sv position. Call light in reach. Side rails up X2. permaculture designer on. Pulse ox on. NIBP on. 15:07 Initial lab(s) drawn, by me, sent to lab. Inserted saline lock: 22 gauge in right iw forearm, using aseptic technique. Blood collected. 15:58 XRAY CXR (1 view) In Process Unspecified. EDMS 17:35 No provider procedures requiring assistance completed. IV discontinued, intact, iw bleeding controlled, No redness/swelling at site. Pressure dressing applied. Administered Medications: No medications were administered Outcome: 16:46 Discharge ordered by . rn 17:35 Discharged to home via wheelchair, with family. iw 17:35 Condition: good 17:35 Discharge instructions given to patient, Instructed on discharge instructions, follow up and referral plans. Demonstrated understanding of instructions, follow-up care. 17:36 Patient left the ED. iw Signatures: Dispatcher [employer] EDMS Becky Ricardo RN RN Angely Pan Irene, RN RN iw Manuel Montgomery MD MD rn Acob, Cheryl, RN RN ca1
[2020-04-18 18:32] VITALS: BP 163/88; TEMP 98.9; O2SAT 98
--- NOTE | 2020-04-20 07:43 | EKG ---
Test Date: 2020-04-18 Test Time: 16:50:14 Marketer: OLIVER MEASUREMENT RESULTS: Intervals: Rate: 76 PA: 204 QRSD: 84 QT: 408 QTc: 459 [place]: P: 48 PA: 204 QRS: 57 T: 63 INTERPRETIVE STATEMENTS: Normal sinus rhythm Normal ECG Compared to ECG 02/26/2020 19:38:58 Left posterior fascicular block no longer present Electronically Signed On 04-20-20 07:40:06 CDT by Rafael Bedolla
== END 2020-04-18 17:36 | disposition home or self-care (01) ==
LOC: ER 13:02
DX: N18.6 End stage renal disease (principal); J81.1 Chronic pulmonary edema; E11.22 Type 2 diabetes mellitus with diabetic chronic kidney disease; Z99.2 Dependence on renal dialysis; B20 Human immunodeficiency virus [HIV] disease; C46.7 Kaposi's sarcoma of other sites; Z95.1 Presence of aortocoronary bypass graft; Z95.2 Presence of prosthetic heart valve; Z88.5 Allergy status to narcotic agent
CPT/HCPCS: 36415; 71045; 80048; 83880; 84484; 85025; 87040; 93005; 99284

== ENCOUNTER 2020-04-25 16:56 | Emergency (ER) | payer OTHER ==
--- OUTSIDE RECORDS SUMMARY | 2020-04-25 16:58 | XMS REPORT | Clinical Summary ---
:1955 Author Organization [facility] Address [address] [place] [address] Care Team Providers Name Role Phone Asked, [...] (Primary Dx); MD Sushant Viral syndrome after 04/25/2019 Social History Tobacco Use Types Packs/Day Years [...] Comments Blood Pressure 155/80 09/12/2019 9:52 PM [facility] Pulse 104 09/12/2019 9:52 PM [facility] Temperature 38.4 C (101.2 F) 09/12/2019 9:52 PM [facility] Respiratory Rate 16 09/12/2019 9:52 PM [facility] Oxygen Saturation 97% 09/12/2019 9:52 PM [facility] Inhaled Oxygen Concentration - - Weight 72.6 kg (160 lb) 09/12/2019 6:46 PM [facility] Height 170.2 cm (5' 7") 09/12/2019 6:46 PM [facility] Body Mass Index 25.06 09/12/2019 6:46 PM [facility] Plan of Treatment Health Maintenance Due Date Last Done Comments DIABETIC RETINAL EYE EXAM 1955 DIABETIC FOOT EXAM 04/24/1967 COLONOSCOPY SCREENING 04/24/2007 SHINGLES VACCINES (#1) 04/24/2007 INFLUENZA VACCINE 06/02/2020 Procedures Procedure Name Priority Date/Time Associated Comments Diagnosis CT ABDOMEN PELVIS WO STAT 09/12/2019 8:46 Res ults for this CONTRAST PM [facility] procedure are i n the results section. XR CHEST 2 VW STAT 09/12/2019 8:44 Results fo r this PM [facility] procedure are i n the results section. BLOOD CULTURE, AEROBIC STAT 09/12/2019 8:01 R esults for this & ANAEROBIC PM [facility] procedure are i n the results section. MANUAL DIFFERENTIAL STAT 09/12/2019 7:43 Resu lts for this PM [facility] procedure are i n the results section. BILIRUBIN DIRECT STAT 09/12/2019 7:43 Results for this PM [facility] procedure are i n the results section. COMPREHENSIVE METABOLIC STAT 09/12/2019 7:43 Results for this PANEL PM [facility] procedure are i n the results section. ESTIMATED GFR STAT 09/12/2019 7:43 Results fo r this PM [facility] procedure are i n the results section. VENOUS BLOOD GAS STAT 09/12/2019 7:43 Results for this PM [facility] procedure are i n the results section. TROPONIN, I-STAT STAT 09/12/2019 7:43 Results for this PM [facility] procedure are i n the results section. LACTIC ACID, I-STAT STAT 09/12/2019 7:43 Resu lts for this PM [facility] procedure are i n the results section. CBC WITH PLATELET AND STAT 09/12/2019 7:43 Re sults for this DIFFERENTIAL PM [facility] procedure are i n the results section. BLOOD CULTURE, AEROBIC STAT 09/12/2019 7:43 R esults for this & ANAEROBIC PM [facility] procedure are i n the results section. INFLUENZA ANTIGEN Routine 09/12/2019 7:43 Result s for this PM [facility] procedure are i n the results section. ECG ED PRELIMINARY Routine 09/12/2019 7:29 Resul ts for this INTERPRETATION PM [facility] procedure are in the results section. ECG 12-LEAD STAT 09/12/2019 7:25 Results for this PM [facility] procedure are i n the results section. after 04/25/[address] Abdomen Pelvis Wo Contrast (09/12/2019 8:46 PM [facility]) Specimen Narrative Performed At EXAMINATION: CT ABDOMEN [...] Radiology Results Incoming - 09/12/2019 8:56 PM [facility] EXAMINATION: CT ABDOMEN PELVIS WO CONTRAST CLINICAL [...] inflammation. Performing Organization Address City/State/Zipcode Phone Number [facility] [address] [place] [address] XR Chest 2 Vw (09/12/2019 8:44 PM [facility]) Specimen Narrative Performed At EXAMINATION: XR CHEST [...] pneumothorax. Visualized osseous stru ctures are intact. [facility]-[id number] Procedure Note Interface, Radiology Results Incoming - 09/12/2019 8:49 PM [facility] EXAMINATION: XR CHEST 2 VW CLINICAL HISTORY: sob COMPARISON: None IMPRESSION: Status post median sternotomy and valvul ar surgery. Atrial clip present. There is mild cardiomegaly. There is mild central vascular congestion. There is small right pleural effusion with volume loss in the right base. Lungs are otherwise clear. There is no pneumothorax. Visualized osseous stru ctures are intact. [facility]-[id number] Performing Organization Address City/[facility] Phone Number [facility] [address] [place] [address] Blood culture, aerobic & anaerobic (09/12/2019 8:01 PM [facility])Only the most recent of2 resultswithin the time period is included. [facility] Blood culture No growth after 5 days of incubation. [facility] isolate Comment: HOSPITAL Specimen Information Specimen Source: Blood Specimen Site: Hand, right Specimen Blood - Hand, right Performing Organization Address [facility] Phone Number [facility] DEPARTMENT OF PATHOLOGY AND [address] [place], [place] [address] [address] Estimated GFR (09/12/2019 7:43 PM [facility]) [facility] Estimated GFR 12 (A) mL/min/1.73 [facility] Comment: m2 [place] Catergory Units Interpretation [facility] G1 [...] 2014. Specimen Plasma specimen Performing Organization Address [facility]/Zipcode Phone Number DEPARTMENT OF PATHOLOGY AND [address] [place], [place] [address] [facility] [address] [place] [address] [facility] Troponin, I-Stat (09/12/2019 7:43 PM [facility]) Troponin, I-Stat 0.01 0.00 - 0.08 [facility] Comment: ng/mL [place] 0.09 - 1.49 ng/ml May indicate increa sed risk of acute EMERGENCY CARE coronary syndrome. [place] >=1.5 ng/ml Consistent with acute myocardial infarction. The diagnostic value of a single normal or non-diagnos tic result is questionable. Serial samples at 2-6 hour i ntervals are required to rule out acute myocardial injury. Specimen Plasma specimen Performing Organization Address City/[facility] Phone Number DEPARTMENT OF PATHOLOGY AND [address] [place] [address] Lactic acid, I-Stat (09/12/2019 7:43 PM [facility]) Pathologist [facility] Lactic acid, I-Stat 2.0 0.5 - 2.2 mmol/L [facility] Specimen Plasma specimen Performing Organization Address [facility] Phone Number DEPARTMENT OF PATHOLOGY AND [address] [place] [address] Manual differential (09/12/2019 7:43 PM [facility]) Pathologist [facility] Manual differential PERFORMED [facility] Neutrophils 69.0 39.0 - 69.0 % [facility] Lymphocytes 17.0 (L) 25.0 - 45.0 % [facility] Monocytes 14.0 (H) 0.0 - 10.0 % [facility] Eosinophils 0.0 0.0 - 5.0 % [facility] Basophils 0.0 0.0 - 1.0 % [facility] Metamyelocytes 0 % [facility] Promyelocytes 0 % [facility] Platelet slide review Cayla slt decr [facility] Anisocytosis Moderate [facility] Polychromasia Moderate [facility] Spherocytes Occasional [facility] Ovalocytes Moderate [facility] Specimen Performing Organization Address [facility] Phone Number [facility] DEPARTMENT OF PATHOLOGY AND [address] [place] [phone] GENOMIC MEDICINE [facility] [address] [place] [address] [facility] [id number] [place] [phone] [place] [address] CBC with platelet and differential (09/12/2019 7:43 PM [facility]) Pathologist Sig nature WBC 6.31 4.50 - 11.00 k/uL [facility] RBC 3.41 (L) 4.40 - 6.00 m/uL [facility] HGB 11.3 (L) 14.0 - 18.0 g/dL [facility] HCT 33.9 (L) 41.0 - 51.0 % [facility] MCV 99.4 82.0 - 100.0 fL [facility] MCH 33.1 27.0 - 34.0 pg [facility] MCHC 33.3 31.0 - 37.0 g/dL [facility] RDW - SD 45.9 37.0 - 55.0 fL [facility] MPV 8.0 (L) 8.8 - 13.2 fL [facility] Platelet count 133 (L) 150 - 400 k/uL [facility] Neutrophils 69.0 39.0 - 69.0 % [facility] Lymphocytes 17.0 (L) 25.0 - 45.0 % [facility] Monocytes 14.0 (H) 0.0 - 10.0 % [facility] Eosinophils 0.0 0.0 - 5.0 % [facility] Basophils 0.0 0.0 - 1.0 % [facility] Specimen Blood Performing Organization Address City/State/Zipcode Phone Number DEPARTMENT OF PATHOLOGY AND [id number] [place] [phone] [facility] [id number] [place] [address] [facility] Influenza antigen (09/12/2019 7:43 PM [facility]) Influenza antigen Flue B: positive Flue A: negative [facility] Comment: [facility] Specimen Source: Nares Specimen Site: Left Specimen Nares - Left Performing Organization Address City/[facility]/Zipcode Phone Number DEPARTMENT OF PATHOLOGY AND [address] [place], [place] [phone] [address] Venous blood gas (09/12/2019 7:43 PM [facility]) Pathologist Sig nature pH, venous, POC 7.52 (H) 7.32 - 7.42 [facility] pCO2, venous, POC 41 (L) 45 - 51 mm Hg [facility] pO2, venous, POC 32 25 - 40 mm Hg [facility] Base excess, venous, 9 (H) -2 - 2 mmol/L [facility] Bicarbonate, venous, 32.9 (H) 21.0 - 28.0 [facility] mmol/L [facility] O2 saturation, 68 40 - 70 % [facility] venous, POC [facility] Specimen Blood Performing Organization Address City/[facility] Phone Number DEPARTMENT OF PATHOLOGY AND [address] [place], [place] [phone] [place] [address] [facility] [place] Bilirubin direct (09/12/2019 7:43 PM [facility]) Pathologist Sig nature Bilirubin direct 0.3 0.0 - 0.3 mg/dL [facility] Specimen Plasma specimen Performing Organization Address City/[facility]/Zipcode Phone Number DEPARTMENT OF PATHOLOGY AND [address] [place] [address] CENTER Comprehensive metabolic panel (09/12/2019 7:43 PM [facility]) Pathologist Sig nature Sodium 135 128 - 145 mEq/L [facility] Potassium 4.9 3.6 - 5.1 mEq/L [facility] CO2 30 18 - 33 mEq/L [facility] Chloride 91 (L) 98 - 108 mEq/L [facility] Glucose 94 73 - 118 mg/dL [facility] Calcium 9.1 8.0 - 10.3 mg/dL [facility] BUN 29 (H) 7 - 22 mg/dL [facility] Creatinine 5.5 (H) 0.7 - 1.2 mg/dL [facility] Alkaline phosphatase 76 53 - 128 U/L [facility] ALT 38 10 - 47 U/L [facility] AST 45 (H) 11 - 38 U/L [facility] Total bilirubin 0.7 0.2 - 1.6 mg/dL [facility] Albumin 3.7 3.3 - 5.5 g/dL [facility] Protein 8.2 (H) 6.4 - 8.1 g/dL [facility] Anion gap 14@ANIO 7 - 15 mEq/L [facility] A/G ratio 0.8 0.7 - 3.8 [facility] Specimen Plasma specimen Performing Organization Address City/State/Zipcode Phone Number DEPARTMENT OF PATHOLOGY AND [address] [place] [address] [place] [address] EMERGENCY [facility] ECG ED Preliminary Interpretation - Not an Order (09/12/2019 7:29 PM [facility]) Narrative Performed At Ty Nieves MD 09/13/2019 6:41 AM ECG ED Preliminary Interpretation - Not an Order Performed by: Ty Nieves MD Authorized by: Ty Nieves MD ECG reviewed by ED Physician in the abse nce of a mail censor: yes Interpretation: Interpretation: non-specific Rate: ECG rate: 96 ECG rate assessment: normal Rhythm: Rhythm: sinus rhythm Ectopy: Ectopy: none QRS: QRS axis: Normal Conduction: Conduction: normal ST segments: ST segments: Normal T waves: T waves: peaked Peaked: V3, V4, V5, V6, II, III and aVF ECG 12 lead (09/12/2019 7:25 PM [facility]) Pathologist Sig nature Ventricular rate 96 [facility] Atrial rate 96 [facility] AR interval 182 [facility] QRSD interval 80 [...] available. Performing Organization Address City/State/Zipcode Phone Number [facility] MUSE [address] [place] [address] after 04/25/2019 Insurance Payer Benefit Plan / Subscriber ID Effective Dates Phone Addre ss Type Group MEDICARE MEDICARE PART A xxxxxxxxxxx 2010-Present [place], [place] Medicare AND B [id number] Advance Directives For more information, please contact: [phone] Type Date Recorded Patient Re Examiner Explanati on Advance Directives, Living Will and Medical Power of Trouble Tracer
--- OUTSIDE RECORDS SUMMARY | 2020-04-25 16:58 | XMS REPORT | Clinical Summary ---
:1955 Author Organization [facility] Address [address] [place] [address] Care Team Providers Name Role Phone Edenilson Joel Unavailable Pcp, No Primary Care Provider [...] raltegravir Take 400 mg by 0 Act smareen (ISENTRESS) 400 mg mouth 2 (two) tablet [...] Encounters Date Type Specialty Care Team Description 04/21/2020 - Emergency Emergency Juan Antonio Avila, Dyspnea, 04/22/2020 Medicine unspecified typ e (Primary Dx) 04/21/2020 Orders Only General Internal Medicine 04/21/2020 Travel 02/28/2020 Anesthesia Event Sukumar Ware MD 02/27/2020 [...] long-term current use of insulin (HCC) after 04/25/2019 Family History Medical History Relation Name Comments [...] Vital Sign Reading Time Taken Blood Pressure 173/84 04/21/2020 11:45 PM CDT Pulse 87 04/21/2020 11:45 PM CDT Temperature 36.7 C (98.1 F) 04/21/2020 11:45 PM CDT Respiratory Rate 17 04/21/2020 11:45 PM CDT Oxygen Saturation 98% 04/21/2020 11:45 PM CDT Inhaled Oxygen Concentration 21% 03/02/2020 10:43 PM CDT Weight 69.9 kg (154 lb) 04/21/2020 8:57 PM CDT Height 170.2 cm (5' 7") 04/21/2020 8:57 PM CDT Body Mass Index 24.12 04/21/2020 8:57 PM CDT Plan of Treatment Health Maintenance [...] INFLUENZA VACCINE (#1) 2020 08/23/2017 LIPID PANEL 03/25/2023 03/25/2020, 12/25/2019, 12/17/2018 Implants Implanted Type Area Zipper Setter Chainstitch Device Shelf Model / Identifier Expiration Serial / Date Lot Sys Atriclip Exclsn Flx 40mm [id number] - Sn/A Cardiovascular N/A: ATRICURE 07/03/2020 [id number] / Implanted: Qty: 1 on 01/10/2018 by Tasneem Black MD Heart N/A / [id number] Cath Dlys Trialysis Pwr 30cm [id number] - [id number] Catheter Left: CR BARD:ACCESS 03/01/2019 [id number] / Implanted: Qty: 1 on 01/10/2018 by Tasneem Black M D Dialysis Long Groin SYS / Term [id number] Valve Mitrl [facility] Std Mstr 27mm [id number] - [id number] Valves Heart [facility] SHEA 12/27/2021 [id number] / Implanted: Qty: 1 on 01/10/2018 by Tasneem Black MD MED:CARDIAC [id number] / SURG N/A [place] For Femoral Neck System- Depuysynthes Left: DePuy 06/01/2029 REF [id number] / Implanted: Qty: 1 on 02/28/2020 by Sukumar Callejas M D Hip Orthopaedics / [id number] 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 Lenght Left: DEPUY 06/01/2029 REF [id number] / Implanted: Qty: 1 on 02/28/2020 by Suukmar Callejas M D Hip ORTHOPEDICS / [id number] Femoral Neck System Plate 2 Hole Left: DEPUY 09/01/2029 REF [id number] / Implanted: Qty: 1 on 02/28/2020 by Sukumar Callejas M D Hip ORTHOPEDICS / [id number] 5.0mm Ti Locking Scr Slf-Tpng W/T25 Stardrive 38mm Left: DEPUY 08/01/2029 REF [id number] / Implanted: Qty: 1 on 02/28/2020 by Sukumar Callejas M D Hip ORTHOPEDICS / [id number] 5.0mm Ti Locking Scr Slf Tpng W/T25 Stardrive 38mm Left: DEPUY 07/02/2029 REF [id number] / Implanted: Qty: 1 on 02/28/2020 by Sukumar Callejas M D Hip ORTHOPEDICS / [id number] Procedures Procedure Name Priority Date/Time Associated Comments Diagnosis ED ECG INTERPRETATION Routine 04/22/2020 12:23 Re sults for this AM CDT procedure are i n the results section. CBC W/PLT COUNT & AUTO STAT 04/21/2020 10:30 R esults for this DIFFERENTIAL PM CDT procedure are i n the results section. TROPONIN I WONG 04/21/2020 10:30 Results for this PM CDT procedure are i n the results section. B-TYPE NATRIURETIC STAT 04/21/2020 10:30 Resul ts for this FACTOR (BNP) PM CDT procedure are i n the results section. PT/APTT STAT 04/21/2020 10:30 Results for this PM CDT procedure are i n the results section. BASIC METABOLIC PANEL WONG 04/21/2020 10:30 Re sults for this (7) PM CDT procedure are i n the results section. CBC W/PLT COUNT & AUTO STAT 04/21/2020 10:30 R esults for this DIFFERENTIAL PM CDT procedure are i n the results section. XR CHEST 2 VIEWS STAT 04/21/2020 10:05 Results for this PM CDT procedure are i n the results section. ECG 12-LEAD STAT 04/21/2020 8:57 Results for this PM CDT procedure are i n the results section. RHYTHM STRIP - SCAN 03/07/2020 11:30 AM [...] are i n the results section. SARS-COV2/RT-PCR (HS Routine 02/27/2020 1:52 R esults for this [...] n the results section. after 04/25/2019 Results ECG/EKG Interpretation (04/22/2020 12:23 AM CDT) Narrative Performed At Juan Antonio Avila MD 04/22/2020 1:24 AM ECG/EKG Interpretation Date/Time: 04/22/2020 1:24 AM Performed by: Juan Antonio Avila MD Authorized by: Juan Antonio Avila MD The ECG was interpreted by ED physician. The ECG is in terpreted as sinus rhythm. Rate is normal rate. Heart rate is 86 BPM. Conduction: conduction normal. ST segments normal. T w aves normal. PT/aPTT (04/21/2020 10:30 PM CDT)Only the most recent of2 resultswithin the time period is included. Protime 25.1 (H) 11.9 - 14.2 seconds [facility] INR 2.34 <=5.90 [facility] PTT 38.7 (H) 22.5 - 36.0 seconds [facility] Specimen Blood Narrative Performed At Effective 01/28/2019: PT Reference Range [facility] Change New: 11.9-14.2Previous: 11.7-14.7 RECOMMENDED COUMADIN/WARFARIN INR THERAPY RANGES STANDARD DOSE: 2.0-3.0Includes: PROPHYLAXIS for venous thrombosis, systemic embolization; TREATMENT for venous thrombosis and/or pulmonary embolus. HIGH RISK: Target INR is 2.5-3.5 for patients wiht mechanical heart valves. Performing Organization Address City/State/Zipcode Phone Number [facility] [address] [place] [address] CENTER CBC with platelet count + automated diff (04/21/2020 10:30 PM CDT)Only the most recent of7 resultswithin the time period is included. WBC 6.2 3.5 - 10.5 K/L [facility] RBC 2.92 (L) 4.63 - 6.08 M/L [facility] Hemoglobin 9.3 (L) 13.7 - 17.5 GM/DL [facility] Hematocrit 29.5 (L) 40.1 - 51.0 % [facility] MCV 101.0 (H) 79.0 - 92.2 fL [facility] MCH 31.8 25.7 - 32.2 pg [facility] MCHC 31.5 (L) 32.3 - 36.5 GM/DL [facility] RDW 13.3 11.6 - 14.4 % [facility] Platelets 126 (L) 150 - 450 K/CU MM [facility] MPV 9.0 (L) 9.4 - 12.4 fL [facility] nRBC 0 0 - 0 /100 WBC [facility] % Neutros 65 % [facility] % Lymphs 20 % [facility] % Monos 13 % [facility] % Eos 2 % [facility] % Baso 1 % [facility] # Neutros 4.02 1.78 - 5.38 K/L [facility] # Lymphs 1.23 (L) 1.32 - 3.57 K/L [facility] # Monos 0.82 0.30 - 0.82 K/L [facility] # Eos 0.12 0.04 - 0.54 K/L [facility] # Baso 0.03 0.01 - 0.08 K/L [facility] Immature 0 0 - 1 % [facility] Granulocytes-Relative MEDICAL CE NTER Specimen Blood Performing Organization Address [facility] [[email or web address] Phone Number [address] [address] [place] Troponin I (04/21/2020 10:30 PM CDT) Troponin I 0.04 (H) 0.00 - 0.03 ng/mL [facility] Specimen Blood Narrative Performed At Troponin I (TnI) levels must be interpreted [facility] in the context of the presenting symptoms and the clinical findings. Elevated TnI levels indicate myocardial damage, but are not specific for ischemic heart disease. Elevated TnI levels are seen in patients with other cardiac conditions (including myocarditis and congestive heart failure), and slight TnI elevations occur in patients with other conditions, including sepsis, renal failure, acidosis, acute neurological disease, and persistent tachyarrhythmia. Device Test Engineer ID - PIAYA L Performing Organization Address [facility]/Zipcode Phone Number [place] [phone] [place] [address] [place] B-type Natriuretic Factor (BNP) (04/21/2020 10:30 PM CDT) BNP 1,507 (H) 0 - 100 pg/mL [facility] Specimen Blood Narrative Performed At Device Test Engineer ID - AKSHAT Chapman [facility] Performing Organization Address [facility]/Zipcode Phone Number [address] [address] [place] Basic Metabolic Panel (04/21/2020 10:30 PM CDT)Only the most recent of7 results within the time period is included. Sodium 137 136 - 145 meq/L [facility] Potassium 4.2 3.5 - 5.1 meq/L [facility] Chloride 94 (L) 98 - 107 meq/L [facility] CO2 34 (H) 22 - 29 meq/L [facility] BUN 21 7 - 21 mg/dL [facility] Creatinine 4.95 (H) 0.57 - 1.25 mg/dL [facility] Glucose 126 (H) 70 - 105 mg/dL [facility] Calcium 9.4 8.4 - 10.2 mg/dL [facility] EGFR 14Comment: ESTIMATED GFR IS mL/min/1.73 sq m [facility] NOT ACCURATE CREATININE [facility] CLEARANCE IN PREDICTING GLOMERULAR FILTRATION RATE. ESTIMATED GFR IS NOT APPLICABLE FOR DIALYSIS PATIENTS. Specimen Blood Narrative Performed At Device Test Engineer ID - AKSHAT Chapman [facility] Performing Organization Address [facility] [[email or web address] Phone Number [address] [address] [place] XR chest 2 views (04/21/2020 10:05 PM CDT) Specimen Narrative Performed At FINAL REPORT GE [facility] INDICATION: SHORTNESS OF BREATH COMPARISON: 01/04/2019 TECHNIQUE: Frontal and lateral views of the chest. IMPRESSION: Lungs and pleura: Small bilateral pleura l effusions with bibasilar streaky opacities suggestive of edema or atelectasis. Superimposed infection would need to be excluded clin ically. No pneumothorax. Heart and mediastinum: Stable cardiomega ly. Prior median sternotomy with atrial appendage clip and valve pro sthesis, as before. Unremarkable mediastinal contours. Osseous structures: No acute abnormality . Additional findings: None. Signed: Edenilson Gutierrez MD Report Verified Date/Time:04/21/2020 22:26:38 Procedure Note Interface, External Ris In - 04/21/2020 10:28 PM CDT FINAL REPORT INDICATION: SHORTNESS OF BREATH COMPARISON: 01/04/2019 TECHNIQUE: Frontal and lateral views of the chest. IMPRESSION: Lungs and pleura: Small bilateral pleura l effusions with bibasilar streaky opacities suggestive of edema or atelectasis. Superimposed infection would need to be excluded clin ically. No pneumothorax. Heart and mediastinum: Stable cardiomega ly. Prior median sternotomy with atrial appendage clip and valve pro sthesis, as before. Unremarkable mediastinal contours. Osseous structures: No acute abnormality . Additional findings: None. Signed: Edenilson Gutierrez MD Report Verified Date/Time: 04/21/2020 2 2:26:38 Performing Organization Address City/State/Zipcode Phone Number GE RIS ECG 12 lead (04/21/2020 8:57 PM CDT) Specimen Narrative Performed At Ventricular Rate 86 BPM GE MUSE Atrial Rate 88 BPM QRS Duration 76 ms Q-T Interval 382 ms QTC Calculation(Bazett) 457 ms R Arjay 50 degrees T Arjay 73 degrees Undetermined rhythm Nonspecific ST abnormality Abnormal ECG When compared with ECG of 16-DEC-2018 13 :58, Current undetermined rhythm precludes [facility] comparison, needs review Confirmed by MD SHAYNA, GUSTAVO ([id number]) on 020 8:10:24 PM Procedure Note Interface, External Ris In - 2020 8:10 PM CDT Ventricular Rate 86 BPM Atrial Rate 88 BPM QRS Duration 76 ms Q-T Interval 382 ms QTC Calculation(Bazett) 457 ms R Arjay 50 degrees T Arjay 73 degrees Undetermined rhythm Nonspecific ST abnormality Abnormal ECG When compared with ECG of 16-DEC-2018 13 :58, Current undetermined rhythm precludes rh [facility] comparison, needs review Confirmed by MD SHAYNA, GUSTAVO ( 190) on 2020 8:10:24 PM Performing Organization Address City/[facility] [[email or web address]]coms Phone Number [employer] MUSE RHYTHM STRIP - SCAN (03/07/2020 11:30 AM CDT) Narrative Performed At This result has an attachment that is no t available. POC-Glucose meter (03/03/2020 3:17 PM CDT)Only the most recent of18 results within the time period is included. POC-Glucose Meter 133 (H)Comment: : TESTED 70 - 110 mg/dL [facility] AT [address], [facility]: Device Test Engineer/Aquatic Performer ID = [id number] for Phyllis Samson Specimen Blood Performing Organization Address [facility] [[email or web address]]coms Phone Number [facility] MEDICAL [address] [place] [address] CENTER HEMODIALYSIS INPATIENT (03/03/2020 12:23 PM CDT) [...] PTT 67.8 (H) 22.5 - 36.0 seconds [facility] Specimen Blood Performing Organization Address [facility]/Zipcode Phone Number [facility] [address] [place] [address] CENTER Daily Prothrombin time/INR while on warfarin (03/03/2020 4:20 AM CDT)Only the most recent of5 resultswithin the time period is included. Protime 32.1 (H) 11.9 - 14.2 seconds [facility] INR 3.2 <=5.9 [facility] Specimen Blood Narrative Performed At Effective 01/28/2019: PT Reference Range [facility] Change New: 11.9-14.2Previous: 11.7-14.7 RECOMMENDED COUMADIN/WARFARIN INR THERAPY RANGES STANDARD DOSE: 2.0-3.0Includes: PROPHYLAXIS for venous thrombosis, systemic embolization; TREATMENT for venous thrombosis and/or pulmonary embolus. HIGH RISK: Target INR is 2.5-3.5 for patients wiht mechanical heart valves. While on warfarin. Performing Organization Address City/[facility]/Zipcode Phone Number [facility] [address] [place] [address] CENTER HEMODIALYSIS INPATIENT (03/01/2020 12:40 PM [...] CDT) Iron 125.0 40.0 - 160.0 ug/dL [facility] TIBC 219 (L) 250 - 450 ug/dL [facility] Iron % Saturation 57 (H) 20 - 55 % [facility] Specimen Blood Narrative Performed At Device Test Engineer ID - JOEL W [facility] [place] Performing Organization Address City/[facility] [[email or web address] Phone Number [address] [address] CENTER Ferritin (02/27/2020 3:19 PM CDT) Ferritin 5,182.19 (H) 5.00 - 275.00 ng/mL [facility] Specimen Blood Narrative Performed At Device Test Engineer ID - JOEL W [facility] Performing Organization Address [facility] [[email or web address] Phone Number [address] [address] [place] Platelet count (02/27/2020 12:30 PM CDT) Platelets 116 (L) 150 - 450 K/CU MM [facility] Specimen Blood Narrative Performed At Device Test Engineer ID - [id number] [facility] No clot Performing Organization Address [facility] [[email or web address] Phone Number [address] [address] [place] Hepatitis B surface antigen (02/27/2020 10:18 AM CDT) HBsAg Screen Nonreactive Nonreactive [facility] Specimen Blood Narrative Performed At Specimen is considered negative for HBsAg. [facility] Performing Organization Address City/[facility] [[email or web address] Phone Number [address] [address] CENTER Antibody identification (02/27/2020 8:56 AM CDT) ANTIBODY ID (JARROD) UNID IgG [place] T X Antibody Consult SIGNED OUTComment: An IgG antibody of [place] undetermined specificity is detected, transfuse crossmatch compatible RBCs.Electronic Signature: Cale Shirley M.D. Specimen Performing Organization Address City/State/[facility] [[email or web address] Phone Number [place] XR wrist 2 [...] MD Report Verified Date/Time:02/27/2020 09:19:08 Reading Location: [facility] C013Y CT Body R eading Room Procedure [...] Verified Date/Time: 02/27/2020 0 9:19:08 Reading Location: [facility] B1 C013Y CT Body R eading Room Performing Organization Address City/[facility]/Zipcode Phone Number GE RIS Potassium (02/27/2020 7:53 AM CDT) Potassium 5.0 3.5 - 5.1 meq/L [facility] Specimen Blood Narrative Performed At Device Test Engineer ID - AKSHAT Chapman [facility] C[facility] Performing Organization Address City/[facility]/Zipcode Phone Number [facility] MEDICAL [address] [place] [address] CENTER XR hip 2 views left (02/27/2020 7:02 AM CDT) Specimen Narrative Performed At FINAL REPORT RIS RAD, PELVIS, 1 OR 2 VIEWS, [...] MD Report Verified Date/Time:02/27/2020 07:23:52 Reading Location: [address] Room Procedure Note Interface, External Ris In [...] Verified Date/Time: 02/27/2020 0 7:23:52 Reading Location: [facility] C[facility] Room Performing Organization Address City/State/Zipcode Phone Number [...] MD Report Verified Date/Time:02/27/2020 07:23:52 Reading Location: [facility] B1 C013V [facility] Room Procedure Note Interface, External Ris In [...] Verified Date/Time: 02/27/2020 0 7:23:52 Reading Location: [facility] C013V [facility] Room Performing Organization Address City/State/Zipcode Phone Number [facility] SARS-CoV2/RT-PCR (Asymptomatic ONLY) (02/27/2020 1:52 AM CDT) SARS-COV2/RT-PCR Negative Not Detected, Negative [facility] SARS-COV-2 PERFORMING LAB [facility] Specimen Other Narrative Performed At Negative result for this test determines that [facility] SARS-CoV-2 RNA was not present in the [...] the Act. Fact Sheet for Healthcare Providers: https://www.combionic/sites/default/files/pro duct/documents/Fact_Sheet_HC_Providers_Lyra_SA RS-CoV-2.pdf Fact Sheet for Healthcare Patients: https://www.combionic/sites/default/files/pro duct/documents/Fact_Sheet_Patients_Lyra_SARS-C oV-2.pdf Performing Laboratory: [address] [place] [address] Performing Organization Address City/[facility]/[place] [address] CENTER Type and screen, automated (02/27/2020 1:23 AM CDT) ABO/RH AUTOMATED (BEAKER) AB POSITIVE [facility] Ab Scrn POSITIVEComment: ECHO 2 [facility] Specimen Blood Performing Organization Address [facility]/[place] [address] Phosphorus (02/27/2020 1:23 AM CDT) Phosphorus 7.3 (H) 2.3 - 4.7 mg/dL [facility] Specimen Blood Narrative Performed At Device Test Engineer ID - PIJESSE L [facility] Performing Organization Address City/State/Zipcode Phone Number [facility] [address] [place] [address] [place] Magnesium (02/27/2020 1:23 AM CDT) Magnesium 1.9 1.6 - 2.6 mg/dL [facility] Specimen Blood Narrative Performed At Device Test Engineer ID - AKSHAT L [facility] Performing Organization Address City/State/Zipcode Phone Number [facility] [address] [place] [address] [place] Comprehensive metabolic panel (02/27/2020 1:23 AM CDT) Protein, Total 9.6 (H) 6.0 - 8.3 gm/dL [facility] Albumin 4.3 3.5 - 5.0 g/dL [facility] Alkaline Phosphatase 85 40 - 150 U/L [facility] Total Bilirubin 1.1 0.2 - 1.2 mg/dL [facility] Sodium 132 (L) 136 - 145 meq/L [facility] Potassium 5.9 (H) 3.5 - 5.1 meq/L [facility] Chloride 91 (L) 98 - 107 meq/L [facility] CO2 24 22 - 29 meq/L [facility] BUN 58 (H) 7 - 21 mg/dL [facility] Creatinine 8.80 (H) 0.57 - 1.25 mg/dL [facility] ER Glucose 99 70 - 105 mg/dL [facility] Calcium 9.2 8.4 - 10.2 mg/dL [facility] AST 44 (H) 5 - 34 U/L [facility] SOLISS [facility] ER ALT 36 6 - 55 U/L [facility] ESPINOSA [facility] ER EGFR 7Comment: ESTIMATED GFR mL/min/1.[address] [facility] IS NOT ACCURATE [facility] CREATININE CLEARANCE IN PREDICTING GLOMERULAR FILTRATION RATE. ESTIMATED GFR IS NOT APPLICABLE FOR DIALYSIS PATIENTS. Specimen Blood Narrative Performed At Device Test Engineer ID - PIAYA L [facility] Performing Organization Address City/State/Zipcode Phone Number [facility] [address] [place] [address] CENTER after 04/25/2019 Insurance Payer Benefit Plan / Group Subscriber ID Type Phone A ddress MEDICARE MEDICARE A B xxxxxxxxxxx Medicare CDC REVIEW CDC REVIEW xxxxxxxx [address] [place], [place] [phone] Advance Directives For more information, please contact:[facility] [address] [place] [address] [place], [place] [phone] Code Status Date Activated Date Inactivated Comments [...]
--- OUTSIDE RECORDS SUMMARY | 2020-04-25 17:17 | XMS REPORT | Continuity of Care Document ---
:1955 Author Organization [facility] t Address [address] [place] [address] Care Team Providers Name Role Phone UNKNOWN, REFFERING Primary Care Physician Unavailable Juliana Avila MD Attending Clinician JULIANA AVILA Attending Clinician Unavailable Florencio Ocampo MD Attending Clinician Arnold Ware MD Attending Clinician Donny Callejas MD Attending Clinician JOELLE OCAMPO Attending Clinician Unavailable Sushant Nieves MD Attending Clinician BRI CAMPBELL Attending Clinician Unavailable TROY SOLANO Attending Clinician Unavailable SANJUANA BREWER Attending Clinician Unavailable CHARI Attending Clinician Unavailable BHAVNA GERBER Attending Clinician Unavailable KAZ TURPIN Attending Clinician Unavailable EDENILSON ANTONIO Attending Clinician Unavailable Xavier HOLLOWAY Attending Clinician Unavailable ELIANA Attending Clinician Unavailable SHILA JAFFE MD, MEric Attending Clinician Unavailable JOELLE OCAMPO Admitting Clinician Unavailable KAZ TURPIN Admitting Clinician Unavailable TROY SOLANO Admitting Clinician Unavailable SANJUANA BREWER Admitting Clinician Unavailable Xavier HOLLOWAY Admitting Clinician Unavailable ELIANA Admitting Clinician Unavailable SHILA JAFFE MD, MMalka., M Admitting Clinician Unavail able Payers Payer Name Policy Policy Number Effective Expiration Source Type Date Date MEDICAREMEDICARE A xxxxxxxxxxx [facility] [place] [facility] CDC REVIEWCDC xxxxxxxx [facility] REVIEWxxxxxxxxPO - [facility] [id number] MEDICAREMEDICARE PART A xxxxxxxxxxx 2010 [place] AND 00:00:00 [facility] Bxxxxxxxxxxx2010-Pre [place] Condition Condition Condition Status Onset Resolution Last Treating Co mments Source Name Details Category Date Date Treatment Clinician Date Fractured Fractured Disease Active [facility] femoral femoral 02-25 [facility] - neck neck 00:00: Medical 00 Nursery Drug-induc Drug-induc Disease Active [facility] ed ed 12-22 [facility] - thrombocyt thrombocyt 00:00: Ok dical openia openia 00 Nursery S/P S/P Disease Active [facility] R-thoracot R-thoracot 12-17 Khushbu kes - nilesh, nilesh, 00:00: Medical decort, decort, 00 Center 12/17 by 12/17 by Sam Vargas Recurrent Recurrent Disease Active 2017-[address] [facility] right right 2 [facility] - pleural pleural 00:00: Medical effusion effusion 00 Center Pleural Pleural Disease Active 2017-[address] effusion effusion 09-28 [facility] - 00:00: Medical 00 Nursery Chronic Chronic Disease Active [facility] anticoagul anticoagul 05-28 Khushbu kes - ation ation 00:00: Medical 00 Nursery Scrotal Scrotal Disease Active [facility] edema edema 05-28 [facility] - 00:00: Medical 00 Nursery Groin Groin Disease Active [facility] abscess [...] Disease Active [facility] 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 Khushbu kes - ciency ciency 00:00: Medical virus virus 00 Center infection) infection) DM II DM II Disease Active [facility] (diabetes (diabetes 01-09 [facility] - mellitus, mellitus, 00:00: Medi shakira type II), type II), 00 Cent er controlled controlled Paroxysmal Paroxysmal Disease Active [facility] atrial atrial 01-08 [facility] - fibrillati fibrillati 00:00: Me dical on on 00 Center Hepatic Hepatic Disease Active [facility] cirrhosis cirrhosis 4 [facility] - due to due to 00:00: Medical chronic chronic 00 Center hepatitis hepatitis C C infection infection HTN HTN Disease Active [facility] (hypertens (hypertens 3-19 Khushbu kes - ion) ion) 00:00: Medical 00 Center ESRD on ESRD on Disease Active [facility] hemodialys hemodialys [facility] - is is Medical Center Allergies, Adverse Reactions, Alerts Allergy Allergy Status Severity Reaction(s) Onset Inactive Treating Comm ents Source Name Type Date Date Clinician Codeine Drug Active Other (See Pt denies [facility] Intolera Comments) 12-02 [facility] 00:00: ce to Medical 00 pain meds Center 12/18/18 Family History Family Member Diagnosis Comments Start Date Stop Date Source Natural father Diabetes [facility] Natural mother Heart disease [facility] Social History Social Habit Start Date Stop Date Quantity Comments Source History [facility] Meth odist Alcohol Std Drinks History [facility] Meth odist Alcohol Binge Sex Assigned At [facility] Alcohol intake 2019-09-12 2019-09-12 Lifetime [facility] thodist 00:00:00 00:00:00 non-drinker (finding) History [facility] 2019-09-12 2019-09-12 [address] [place] Meth odist Alcohol Frequency 00:00:00 00:00:00 Smoking Status Start Date Stop Date Source Never smoker [facility] Medications Ordered Filled Start Stop Current Ordering Indication Dosage Frequency Signature Comments Components Source Medication Medication Date Date Medication? Clinician (SIG) Name Name pablomina 2020- Yes 2{tbl} QD Take [address] ate 03-03 07-02 tablets by Jarad - (SENOKOT S) 00:00: 23:59 mouth Medi [...] [facility]I S t acetate,shayla 6-27 mg by Jarad - sphat bind, 01:05: mouth 3 Med ical (PHOSLO) 18 (three) Center 667 mg times capsule daily with meals. lamiVUDine 2020-0 Yes Q.5D Take by [place] (EPIVIR) 10 -11 mouth 2 Metho di mg/mL 18:52: (two) st solution 25 times a day. sulfamethox 2020-0 Yes 1{tbl} Q.5D Take 1 [place] azole-trime -11 tablet by Met [facility] thoprim 18:52: mouth 2 st (BACTRIM 25 (two) DS) 800-160 times a mg per day. tablet codeine-gua 2019-0 Yes acute pain 5mL Q.[id number] Take 5 mL López ifenesin 09-12 [id number] by mouth 3 Methodi (GUAIFENESI 18:52: 3D (three) st N AC) 25 times a 10-100 mg/5 day as mL liquid needed for cough .acute pain. clotrimazol 2020-0 Yes Q.5D Apply Bert on e -11 topically Methodi (LOTRIMIN) 18:52: 2 (two) st 1 % cream 25 times a day. traMADol 2020-0 Yes acute pain 50mg Q6H Take 50 mg López (ULTRAM) 50 -11 by mouth Meth lora mg tablet 18:52: every 6 st 24 (six) hours as needed for moderate pain .acute pain. ergocalcife 2020-0 Yes 27000Q Q7D Take [place] 1-11 50,000 [...] 2020-0 Yes 1[drp] Q.25D 1 drop 4 Lpóez E sodium 1-11 (four) Methodi phosphate 1 [...] Q8H Take 1 [place] ODT 1-11 -16 tablet (4 Methodi (ZOFRAN-ODT 00:00: 23:59 mg [...] No 667mg Take [address] [facility] [facility] acetate 5- 05-06 capsule [facility] - (PHOSLO) 00:00: 23:59 (667 mg Medic al 667 mg 00 :00 total) by Center capsule mouth 2 (two) times daily before meals. losartan 2019- No 50mg QD Take [address] (COZAAR) 50 01-06 05-06 tablet (50 L ukes - MG tablet 00:00: 23:59 mg total) Me dical 00 :00 by mouth Center daily. warfarin 2017-[address] (COUMADIN) 10-21 patient [facility] - 6 MG tablet 00:00: [facility] Medical 00 ns for Center details, 12 mg on Saturday, Saturday and Saturday, and 11 mg on Saturday, , Saturday, Saturday. carvedilol 2017-09 2019- No 12.5mg Q.5D Take [address] (COREG) -20 08-19 tablet [facility] - 12.5 MG 00:00: 23:59 (12.5 mg Medic al tablet 00 :00 total) by Center mouth 2 (two) times daily No more refills through my office. lamiVUDine 2019- No 25mg QD Take 2.[address] (EPIVIR) 10 05-29-27 mLs (25 mg L ukes - mg/mL 00:00: 23:59 total) by Medica l solution 00 :00 mouth Center daily. atorvastati Yes 20mg QD Take [address] n (LIPITOR) - by mouth Luke s - 20 MG 17:54: daily. Medical tablet 47 Center ergocalcife Yes 51647V Q7D Take [facility] rol - 50,000 [facility] - (VITAMIN 17:54: Units by Medic al D2) 50,[address] unit a week. capsule aspirin 81 Yes 81mg QD Take [address] MG EC 6-24 by mouth [facility] - tablet 22:06: daily. Medical 28 Nursery cholecalcif Yes Take by [facility] [place] [facility] gavin, 4-02 mouth. [facility] - [facility] D3, 08:57: Medica [...] Time Observation Value Comments Source Systolic blood 2020-04-21 23:45:00 173 mm[Hg] [facility] Diastolic blood 2020-04-21 23:45:00 84 mm[Hg] [facility] Heart rate 2020-04-21 23:45:00 87 /min [facility] Body temperature 2020-04-21 23:45:00 36.72 Marjorie [facility] Respiratory rate 2020-04-21 23:45:00 17 /min [facility] Oxygen saturation in 2020-04-21 23:45:00 98 /min [facility] - Arterial blood by Medical Ce nter Pulse oximetry Body height 2020-04-21 20:57:00 170.2 cm [facility] Body weight Measured 2020-04-21 20:57:00 69.854 kg [facility] BMI 2020-04-21 20:57:00 24.12 kg/m2 [facility] Systolic blood 2019-09-12 21:52:03 155 mm[Hg] Lu[place] n [facility] pressure Diastolic blood 2019-09-12 21:52:03 80 mm[Hg] [place] [facility] pressure Heart rate 2019-09-12 21:52:03 104 /min L[facility]pez [facility] Body temperature 2019-09-12 21:52:03 38.44 Marjorie [place] [facility] Respiratory rate 2019-09-12 21:52:03 16 /min [place] [facility] Oxygen saturation in 2019-09-12 21:52:03 97 /min L[facility]pez [facility] Arterial blood by Pulse oximetry Body height 2019-09-12 18:46:00 170.2 cm L[facility]pez [facility] Body weight 2019-09-12 18:46:00 72.576 kg L[facility]pez [facility] BMI 2019-09-12 18:46:00 25.06 kg/m2 L[facility] Procedures Procedure Date / Time Performing Clinician Source Performed ED ECG INTERPRETATION 2020-04-22 00:23:00 Margarita [facility] BASIC METABOLIC PANEL (7) 2020-04-21 22:30:00 Margarita [facility] PT/APTT 2020-04-21 22:30:00 Margarita, [facility] B-TYPE NATRIURETIC FACTOR 2020-04-21 22:30:00 Margarita [facility] (BNP) [facility] TROPONIN I 2020-04-21 22:30:00 Margarita, [facility] CBC W/PLT COUNT & AUTO 2020-04-21 22:30:00 Margarita, [facility] XR CHEST 2 VIEWS 2020-04-21 22:05:00 Margarita [facility] ECG 12-LEAD 2020-04-21 20:57:[facility] - [facility] 2020-03-07 11:30:22 Provider, [facility] [id number] 2020-03-05 00:00:00 ENCPL [id number] 2020-03-05 00:00:00 ENCPL [id number] 2020-03-05 00:00:00 ENCPL [id number] 2020-03-05 00:00:00 ENCPL [id number] 2020-03-05 00:00:00 ENCPL 2I4P60N 2020-03-05 00:00:00 ENCPL 9S6D61C 2020-03-05 00:00:00 ENCPL [id number] 2020-03-05 00:00:00 ENCPL 4G4R79R 2020-03-05 00:00:00 ENCPL 1D1T47G 2020-03-05 00:00:00 ENCPL 0G1Z25N 2020-03-05 00:00:00 ENCPL [id number] 2020-03-05 00:00:00 ENCPL 2W5D29P 2020-03-05 00:00:00 ENCPL 5T7H83Q 2020-03-05 00:00:00 ENCPL 8E6W14L 2020-03-05 00:00:00 ENCPL 3P3G91Q 2020-03-05 00:00:00 ENCPL 4O8M46B 2020-03-05 00:00:00 ENCPL 2X2Z11B 2020-03-05 00:00:00 ENCPL 1Q3O38H 2020-03-05 00:00:00 ENCPL [id number] 2020-03-05 00:00:00 ENCPL 8J0A86P 2020-03-05 00:00:00 ENCPL POCT-GLUCOSE METER 2020-03-03 15:17:00 Florencio Ocampo [facility] POCT-GLUCOSE METER 2020-03-03 12:24:00 Florencio Ocampo [facility] HEMODIALYSIS INPATIENT 2020-03-03 12:23:00 Abena Squires [facility] APTT 2020-03-03 09:05:00 Florencio Ocampo [facility] APTT 2020-03-03 06:33:00 Florencio Ocampo [facility] BASIC METABOLIC PANEL (7) 2020-03-03 04:20:00 Florencio Ocampo [facility] PROTHROMBIN TIME/INR 2020-03-03 04:20:00 Florencio Ocampo [facility] CBC W/PLT COUNT & AUTO 2020-03-03 04:19:[address] [facility] POCT-GLUCOSE METER 2020-03-02 21:17:00 Florencio Ocamporamakrishna [facility] APTT 2020-03-02 20:45:00 Florencio Ocamporamakrishna [facility] APTT 2020-03-02 18:38:00 Florencio Ocamporamakrishna [facility] POCT-GLUCOSE METER 2020-03-02 16:57:00 Florencio Ocamporamakrishna [facility] POCT-GLUCOSE METER 2020-03-02 11:53:00 Florencio Ocamporamakrishna [facility] APTT 2020-03-02 11:29:00 Justin Florencio Lai [facility] POCT-GLUCOSE METER 2020-03-02 08:16:00 Justin Florencio Lai [facility] APTT 2020-03-02 05:09:00 Justin Florencio Lai [facility] BASIC METABOLIC PANEL (7) 2020-03-02 05:08:00 Justin Florencio Lai [facility] PROTHROMBIN TIME/INR 2020-03-02 05:08:00 Justin Florencio Lai [facility] CBC W/PLT COUNT & AUTO 2020-03-02 05:08:00 Justin Florencio Lai [facility] POCT-GLUCOSE METER 2020-03-01 23:01:00 Justin Florencio Lai [facility] APTT 2020-03-01 22:26:00 Justin Florencio Lai [facility] APTT 2020-03-01 15:10:00 JustinFlorencio [facility] PT/APTT 2020-03-01 15:10:00 Mckennajose malexandraFlorencio [facility] HEMODIALYSIS INPATIENT 2020-03-01 12:40:00 Abena Squires [facility] BASIC METABOLIC PANEL (7) 2020-03-01 11:33:00 JoFlorencio fuentesramakrishna [facility] BASIC METABOLIC PANEL (7) 2020-03-01 05:43:00 Lety Ocampojessee Lai [facility] PROTHROMBIN TIME/INR 2020-03-01 05:43:00 Florencio Ocamporamakrishna [facility] APTT 2020-03-01 05:43:00 Florencio Ocamporamakrishna [facility] CBC W/PLT COUNT & AUTO 2020-03-01 05:43:00 Florencio Ocampo Joelle [facility] APTT 2020-02-29 22:37:00 Justin Florencio Lai [facility] POCT-GLUCOSE METER 2020-02-29 22:19:00 Florencio Ocampo Joelle [facility] POCT-GLUCOSE METER 2020-02-29 15:25:00 Justin Florencio Lai [facility] APTT 2020-02-29 15:17:00 Florencio Ocampo Joelle [facility] POCT-GLUCOSE METER 2020-02-29 11:38:00 Justin Florencio Lai [facility] APTT 2020-02-29 09:03:00 Jusitn Florencio Jaeramakrishna [facility] PROTHROMBIN TIME/INR 2020-02-29 09:03:00 Mihai Estrella [facility] BASIC METABOLIC PANEL (7) 2020-02-29 00:51:00 Florencio Ocamporamakrishna [facility] APTT 2020-02-29 00:51:00 Florencio Ocamporamakrishna [facility] CBC W/PLT COUNT & AUTO 2020-02-29 00:51:00 Lety Ocampojessee Lai [facility] POCT-GLUCOSE METER 2020-02-28 23:48:00 Mckennagina Florencio Lai [facility] APTT 2020-02-28 18:36:00 Mckennagina Florencio Lai [facility] POCT-GLUCOSE METER 2020-02-28 18:03:00 Justin Florencio ramakrishna [facility] TRANSFUSION SERVICE 2020-02-28 18:00:38 Heriberto Rosario [facility] REPORT - SCAN [facility] APTT 2020-02-28 17:12:00 Justin Florencio ramakrishna [facility] POCT-GLUCOSE METER 2020-02-28 12:02:00 Justin Florencio ramakrishna [facility] APTT 2020-02-28 10:56:00 Justin Florencio [facility]heather [facility] POCT-GLUCOSE METER 2020-02-28 06:38:00 Justin Florencio [facility]heather [facility] BASIC METABOLIC PANEL (7) 2020-02-28 04:31:00 JustinFlorencio [facility] CBC W/PLT COUNT & AUTO 2020-02-28 04:31:00 Mckennajose malexandra Florencio Lai [facility] POCT-GLUCOSE METER 2020-02-28 02:14:00 Justin Florencio [facility] [place] FLUORO NON-SPECIFIC UP 2020-02-28 01:47:00 Stoney Callejas [facility] TO 1 [facility] APTT 2020-02-27 19:46:00 KinzaalexandraFlorencio ramakrishna [facility] ORIF,FEMUR 2020-02-27 19:25:00 Sukumar Callejas [facility] PROCEDURE W/ C-ARM 2020-02-27 19:25:00 Sukumar Callejas [facility] HEMODIALYSIS INPATIENT 2020-02-27 18:35:06 Abena Squires [facility] POCT-GLUCOSE METER 2020-02-27 17:44:00 Florencio Ocampo ramakrishna [facility] IRON, TIBC, % SAT. 2020-02-27 15:19:00 Abena Squires [facility] (WITHOUT FERRITIN) [facility] F[facility] 2020-02-27 15:19:[address] [facility] PLATELET COUNT 2020-02-27 12:30:[address] [facility] APTT 2020-02-27 12:30:00 Florencio Ocampo ramakrishna [facility] POCT-GLUCOSE METER 2020-02-27 12:01:00 Florencio Ocampo [facility] HEPATITIS B SURFACE 2020-02-27 10:18:[address] [facility] ANTIBODY IDENTIFICATION 2020-02-27 08:56:00 Florencio Ocampo [facility] XR WRIST 2 VIEWS LEFT 2020-02-27 08:49:00 Florencio Ocampo [facility] POTASSIUM 2020-02-27 07:53:[address] [facility] XR HIP 2 VIEWS LEFT 2020-02-27 07:02:00 Kay Peoples [facility] XR PELVIS 1 OR 2 VIEWS 2020-02-27 06:56:00 Kay Peoples [facility] POCT-GLUCOSE METER 2020-02-27 06:15:00 Florencio Ocampo [facility] SARS-COV2/RT-PCR ([facility] & 2020-02-27 01:52:00 Caleb Martinez [facility] - REF LABS) Medical Center COMPREHENSIVE METABOLIC 2020-02-27 01:23:[address] [facility] PROTHROMBIN TIME/INR 2020-02-27 01:23:00 Caleb Martinez [facility] MAGNESIUM 2020-02-27 01:23:00 Caleb Martinez [facility] PHOSPHORUS 2020-02-27 01:23:00 Caleb Martinez [facility] TYPE AND SCREEN, 2020-02-27 01:23:00 Caleb Martinez [facility] AUTOMATED [facility] CBC W/PLT COUNT & AUTO 2020-02-27 01:23:00 Caleb Martinez [facility] ABDOMEN PELVIS WO 2019-09-12 20:46:00 Ty Nieves CONTRAST XR CHEST 2 VW 2019-09-12 20:44:31 Ty Nieves BLOOD CULTURE, AEROBIC & 2019-09-12 20:01:00 Ty Nieves ANAEROBIC INFLUENZA ANTIGEN 2019-09-12 19:43:00 Ty Nieves on [facility] BLOOD CULTURE, AEROBIC & 2019-09-12 19:43:00 Ty Nieves ANAEROBIC CBC WITH PLATELET AND 2019-09-12 19:43:00 Ty Nieves DIFFERENTIAL LACTIC ACID, I-STAT 2019-09-12 19:43:00 Ty Nieves TROPONIN, I-STAT 2019-09-12 19:43:00 Ty Nieves VENOUS BLOOD GAS 2019-09-12 19:43:00 Ty Nieves ESTIMATED GFR 2019-09-12 19:43:00 Ty Nieves COMPREHENSIVE METABOLIC 2019-09-12 19:43:00 Ty Nieves PANEL BILIRUBIN DIRECT 2019-09-12 19:43:00 Ty Nieves MANUAL DIFFERENTIAL 2019-09-12 19:43:00 Ty Nieves ECG ED PRELIMINARY 2019-09-12 19:29:23 Ty Nieves INTERPRETATION ECG 12-LEAD 2019-09-12 19:25:17 Ty Nieves [id number] 2019-01-08 00:00:00 ENCPL 6H4R62T 2019-01-08 00:00:00 ENCPL 0R9W04R 2019-01-08 00:00:00 ENCPL [id number] 2019-01-08 00:00:00 ENCPL Plan of Care Planned Activity Planned Date Details Comments Source Future Scheduled 2023-03-[address] [facility] - Test 00:00:00 (procedure) [code = Medical Center 01432682] Future Scheduled 2020-06-02 INFLUENZA VACCINE [place] [facility] 00:00:00 [code = INFLUENZA VACCINE] Future Scheduled 2020-05-03 INFLUENZA VACCINE (#1) [facility] Test 00:00:00 [code = INFLUENZA Medical Ce nter VACCINE (#1)] Future Scheduled 2020-01-[address] [facility] - Test 00:00:00 malignant neoplasm of Medica l Center colon (procedure) [code = 027714183] Future Scheduled 2019-06-[address] Khushbu kes - Test 00:00:00 measurement [facility] (procedure) [code = 81907195] Future Scheduled 2018-08-[address] [facility] [...] Future Scheduled 2007-04-24 COLONOSCOPY SCREENING [place] [facility] Test 00:00:00 [code = COLONOSCOPY SCREENING] Future Scheduled 2007-04-24 SHINGLES VACCINES (#1) [place] [facility] Test 00:00:00 [code = SHINGLES VACCINES (#1)] Future Scheduled 1967-04-24 DIABETIC FOOT EXAM [place] [facility] Test 00:00:00 [code = DIABETIC FOOT EXAM] Future Scheduled 1967 DIABETIC EYE EXAM [facility] Test 00:00:00 [code = DIABETIC EYE Medical Center EXAM] Future Scheduled [address] [facility] - Test 00:00:00 examination Medical Center (regime/therapy) [code = 431510987] Future Scheduled 1967 Urine screening for [facility] - Test 00:00:00 protein (procedure) Medical Center [code = 535932658] Future Scheduled 1957 DIABETIC RETINAL EYE [place] [facility] Test 00:00:00 EXAM [code = DIABETIC RETINAL EYE EXAM] Encounters Start End Encounter Admission Attending Care Care Encounter Source Date/Time Date/Time Type Type Clinicians Facility Department ID 2019-11-09 2019-11-09 Outpatient [facility] MED [id number] [facility] 08:51:00 08:51:00 2019-09-12 2019-09-12 Emergency [facility] Myles4 [id number] [place] 00:00:00 00:00:00 TY [address] 2017-11-18 2017-11-20 Inpatient C HEYDIGIA, [facility] MED [id number] [address] [facility] 13:43:00 13:54:00 [facility] 2017-11-07 2017-11-07 Emergency E [facility] MED [id number] [facility] 20:22:00 20:22:00 [facility] 2017-10-06 2017-10-06 Emergency E ELIANA, [facility] MED [id number] [address] [facility] 14:25:00 14:25:00 [facility] Results Test Description Test Test Results Result Source Time Comments Comments ECG 12 lead 2020-04- Interface, External Ris [facility] In - 2020 8:10 [place] [facility] - 20:10:26 PM CDTVentricular Rate Me dical 86 BPMAtrial Rate 88 Cent er BPMQRS Duration 76 msQ-T Interval 382 msQTC Calculation(Bazett) 457 msR Atkinson 50 degreesT [place] [address] abnormalityAbnormal ECGWhen compared with ECG of 16-DEC-2018 13:58,Current undetermined rhythm precludes rhythm comparison, needs reviewConfirmed by MD SHAYNA, GUSTAVO ([id number]) on 2020 8:10:24 PM ECG/EKG 2020-04- Juliana Avila MD [facility] Interpretation 21 04/22/2020 1:24 [facility] - 00:23:00 AMECG/EKG Medical InterpretationDate/Time C enter : 04/22/2020 1:24 AMPerformed by: Juliana Avila MDAuthorized by: Juliana Avila MD The ECG was interpreted by ED physician. The ECG is interpreted as sinus rhythm. Rate is normal rate. Heart rate is 86 BPM.Conduction: conduction normal. ST segments normal. T waves normal. Troponin I 2020-04-21 23:28:00 Test Item Value Reference Range Interpretation Comme nts Troponin I (test code = 35299-8) 0.04 ng/mL 0-0.03 H ALVIN (test code = ALVIN) Troponin I (TnI) levels must be interpreted [...] failure, acidosis, acute neurological disease, and persistent tachyarrhythmia.Commercial Assistant ID - AKSHAT L Lab Interpretation (test code = Abnormal 80038-3) [facility] [id number] 23:28:00 Test Item Value Reference Range Interpretation Comments TROPONIN I (BEAKER) (test code = 0.04 ng/mL 0.00-0.03 H 397) Troponin I (TnI) [...] failure, acidosis, acute neurological disease, and persistent tachyarrhythmia.Commercial Assistant ID - PIJESSE LBasic Metabolic [id number] 23:26:00 Test Item Value Reference Range Interpretation Comments Sodium (test code = 137 meq/L 701-514 7461-2) Potassium (test code = 4.2 meq/L 3.5-5.1 2823-3) Chloride (test code = 94 meq/L 98-107 L 2075-0) CO2 (test code = 34 meq/L 22-29 H 2028-9) BUN (test code = 21 mg/dL 7-21 3094-0) Creatinine (test code 4.95 mg/dL 0.57-1.25 H = 2160-0) Glucose (test code = 126 mg/dL 70-105 H 2345-7) Calcium (test code = 9.4 mg/dL 8.4-10.2 56846-8) EGFR (test code = 14 mL/min/1.73 [place] [address]-4) NOT ACCURATE CREATININE CLEARANCE IN PREDICTING GLOMERULAR FILTRATION RATE . ESTIMATED GFR I S NOT APPLICABLE FOR DIALYSIS PATIENTS. ALVIN (test code = ALVIN) Commercial Assistant ID - AKSHAT L Lab Interpretation Abnormal (test code = 36664-1) [facility] [id number] 23:26:00 Test Item Value Reference Range Interpretation Comments SODIUM (BEAKER) 137 meq/L 136-145 (test code = 381) POTASSIUM (BEAKER) 4.2 meq/L 3.5-5.1 (test code = 379) CHLORIDE (BEAKER) 94 meq/L 98-107 L (test code = 382) CO2 (BEAKER) (test 34 meq/L 22-29 H code = 355) BLOOD UREA NITROGEN 21 mg/dL 7-21 (BEAKER) (test code = 354) CREATININE (BEAKER) 4.95 mg/dL 0.57-1.25 H (test code = 358) GLUCOSE RANDOM 126 mg/dL 70-105 H (BEAKER) (test code = 652) CALCIUM (BEAKER) 9.4 mg/dL 8.4-10.2 (test code = 697) EGFR (BEAKER) (test 14 mL/min/1.73 ESTIMA JAYLA GFR IS code = 1092) sq m NOT ACCURATE CREATININE CLEARANCE IN PREDICTING GLOMERULAR FILTRATION RATE . ESTIMATED GFR I S NOT APPLICABLE FOR DIALYSIS PATIEN TS. Commercial Assistant ID - AKSHAT LB-type Natriuretic Factor (BNP)2020-04-21 23:25:00 Test Item Value Reference Range Interpretation Comments BNP (test code = 54703-7) 1507 pg/mL 0-100 H ALVIN (test code = ALVIN) Commercial Assistant ID - AKSHAT L Lab Interpretation (test Abnormal code = 65935-7) [facility] (BNP)2020-04-21 23:25:00 Test Item Value Reference Range Interpretation Comments B-TYPE NATRIURETIC PEPTIDE 1507 pg/mL 0-100 H (BEAKER) (test code = 700) Commercial Assistant ID - AKSHAT LPT/[id number] 23:09:00 Test Item Value Reference Range Interpretation Comments Protime (test code = 25.1 11.9- 14.2 H 5902-2) seconds INR (test code = 2.34 <=5.90 6301-6) PTT (test code = 38.7 22.5- 36.0 H 21279-1) seconds ALVIN (test code = ALVIN) Effective 01/28/2019: PT Reference Range ChangeNew: 11.9-14.2 Previous: 11.7-14.7 RECOMMENDED COUMADIN/WARFARIN INR THERAPY RANGESSTANDARD DOSE: 2.0-3.0 Includes: PROPHYLAXIS for venous thrombosis, systemic embolization; TREATMENT for venous thrombosis and/or pulmonary embolus.HIGH RISK: Target INR is 2.5-3.5 for patients wiht mechanical heart valves. Lab Interpretation Abnormal (test code = 25770-1) [facility]PT/[id number] 23:09:00 Test Item Value Reference Range Interpretation Comments PROTIME (BEAKER) (test code = 25.1 seconds 11.9-14.2 H 759) INR (BEAKER) (test code = 370) 2.34 <=5.90 PARTIAL THROMBOPLASTIN TIME 38.7 seconds 22.5-36.0 H (BEAKER) (test code = 760) Effective 01/28/2019: PT Reference Range ChangeNew: 11.9-14.2 Previous: 11.7- 14.7RECOMMENDED COUMADIN/WARFARIN INR THERAPY RANGESSTANDARD DOSE: 2.0-3.0 Includes: PROPHYLAXIS for venous thrombosis, systemic embolization; TREATMENT for venous thrombosis and/or pulmonary embolus.HIGH RISK: Target INR is2.5-3.5 for patients wiht mechanical heart valves.CBC with platelet count + automated [id number] 22:49:00 Test Item Value Reference Range Interpretation Comments WBC (test code = 6690-2) 6.2 3.5- 10.5 K/L RBC (test code = 789-8) 2.92 4.63- 6.08 M/L L MCHC (test code = 786-4) 31.5 32.3- 36.5 GM/DL L Hematocrit (test code = 4544-3) 29.5 % 40.1-51 L MCV (test code = 787-2) 101.0 fL 79-92.2 H MCH (test code = 785-6) 31.8 pg 25.7-32.2 RDW (test code = 788-0) 13.3 % 11.6-14.4 Platelets (test code = 777-3) 126 150- 450 K/CU MM L MPV (test code = 64075-5) 9.0 fL 9.4-12.4 L nRBC (test code = 413) 0 0- 0 /100 WBC % Neutros (test code = 429) 65 % % Lymphs (test code = 430) 20 % % Monos (test code = 431) 13 % % Eos (test code = 432) 2 % % Baso (test code = 437) 1 % # Neutros (test code = 670) 4.02 1.78- 5.38 K/L # Lymphs (test code = 414) 1.23 1.32- 3.57 K/L L # Monos (test code = 415) 0.82 0.30- 0.82 K/L # Eos (test code = 416) 0.12 0.04- 0.54 K/L # Baso (test code = 417) 0.03 0.01- 0.08 K/L Immature Granulocytes-Relative 0 % 0-1 (test code = 2801) Lab Interpretation (test code = Abnormal 14640-7) [facility] W/PLT COUNT & AUTO [id number] 22:49:00 Test Item Value Reference Range Interpretation Comments WHITE BLOOD CELL COUNT (BEAKER) 6.2 K/ L 3.5-10.5 (test code = 775) RED BLOOD CELL COUNT (BEAKER) 2.92 M/ L 4.63-6.08 L (test code = 761) HEMOGLOBIN (BEAKER) (test code = 9.3 GM/DL 13.7-17.5 L 410) HEMATOCRIT (BEAKER) (test code = 29.5 % 40.1-51.0 L 411) MEAN CORPUSCULAR VOLUME (BEAKER) 101.0 fL 79.0-92.2 H (test code = 753) MEAN CORPUSCULAR HEMOGLOBIN 31.8 pg 25.7-32.2 (BEAKER) (test code = 751) MEAN CORPUSCULAR HEMOGLOBIN CONC 31.5 GM/DL 32.3-36.5 L (BEAKER) (test code = 752) RED CELL DISTRIBUTION WIDTH 13.3 % 11.6-14.4 (BEAKER) (test code = 412) PLATELET COUNT (BEAKER) (test 126 K/CU MM 150-450 L code = 756) [...] (test code = 437) NEUTROPHILS ABSOLUTE COUNT 4.02 K/ L 1.78-5.38 (BEAKER) (test code = [...] 0-1 PERCENT (BEAKER) (test code = 2801) RAD, CHEST, 2 [id number] 22:26:00Reason for exam:->SHORTNESS OF BREATH FINAL REPORT INDICATION: SHORTNESS OF BREATH COMPARISON: 01/04/2019 TECHNIQUE: Frontal and lateral views of the chest. IMPRESSION: Lungs and pleura: Small bilateral pleural effusions with bibasilar streaky opacities suggestive of edema or atelectasis. Superimposed infection would need to be excluded clinically. No pneumothorax.Heart and mediastinum: Stable cardiomegaly. 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 Unremarkable mediastinal contours.Osseous structures: No acute abnormality.Additional findings: None. Signed: Edenilson Gutierrez MDReport Verified Date/Time: 04/21/2020 22:26:38 XR chest 2 [id number] 22:26:00Interface, External Ris In - 04/21/2020 10:28 PM CDTFINAL REPORT INDICATION: SHORTNESS OF BREATH COMPARISON: 01/04/2019 TECHNIQUE: Frontal and lateral views of the chest. IMPRESSION: Lungs and pleura: Small bilateral pleural effusions with bibasilar streaky opacities suggestive ofedema or atelectasis. Superimposed infection would need to be excluded clinically. No pneumothorax.Heart and mediastinum: Stable cardiomegaly. 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 Unremarkable mediastinal contours.Osseous structures: No acute abnormality.Additional findings: None. Signed: Edenilson Gutierrez MDReport Verified Date/Time: 04/21/2020 22:26:38 [facility]-Glucose [id number] 15:36:00 Test Item Value Reference Range Interpretation Comments POC-Glucose Meter (test 133 mg/dL 70-110 H : TE STED AT [facility] code = 1538) [address] [facility], 770 30: Commercial Assistant/Techni kush ID = [id number] for Eulalio Samson Lab Interpretation (test Abnormal code = 50909-9) [facility] HospitalPOID-GLUCOSE [id number] 15:36:00 Test Item Value Reference Range Interpretation Comments POC-GLUCOSE METER 133 mg/dL 70-110 H : [facility] (test code = [facility], 1538) [address]: Commercial Assistant/Techni kush ID = [id number] for Wi lliams, Areiona POCT-GLUCOSE [id number] 12:38:00 Test Item Value Reference Range Interpretation Comments POC-GLUCOSE METER 100 mg/dL 70-110 : TESTED A T [facility] 6720 (BEAKER) (test code = [facility], 1538) [address]: Commercial Assistant/Techni kush ID = [id number] for Wi lliams, Areiona HEMODIALYSIS [id number] 12:23:00Simeon Leo RN 03/03/2020 12:24 PMHD x 3.5 hours. [...] Lab Results Component Value Date HEPBSAG Nonreactive 02/27/2020[facility]aPTT2020-07-02 09:28:00 Test Item Value Reference Range Interpretation Comments PTT (test code = 58580-5) 67.8 22.5- 36.0 seconds H Lab Interpretation (test code = Abnormal 16434-6) [facility] HospitalAPTT2020-07-02 09:28:00 Test Item Value Reference Range Interpretation Comments PARTIAL THROMBOPLASTIN TIME 67.8 seconds 22.5-36.0 H (BEAKER) (test code = 760) [id number] 07:14:00 Test Item Value Reference Range Interpretation Comments PARTIAL THROMBOPLASTIN TIME 146.9 seconds 22.5-36.0 H (BEAKER) (test code = 760) CBC W/PLT COUNT & AUTO [id number] 05:40:00 Test Item Value Reference Range Interpretation [...] (BEAKER) (test code = 2801) BASIC METABOLIC [id number] 05:24:00 Test Item Value Reference Range Interpretation [...] S NOT APPLICABLE FOR DIALYSIS PATIEN TS. Commercial Assistant ID - LORENZO WDann mariey Prothrombin time/INR while on [id number] 04:52:00 Test Item Value Reference Range Interpretation [...] warfarin. Lab Interpretation Abnormal (test code = 72436-1) [facility] HospitalPROTHROMBIN TIME/[id number] 04:52:00 Test Item Value Reference Range Interpretation [...] H : TESTED A T [facility] 6720 ([facility]) (test code = [facility], 1538) 114[address]: Commercial Assistant/Techni kush ID = [id number] for KATIA RAO [id number] 21:05:00 Test Item Value Reference Range Interpretation Comments PARTIAL THROMBOPLASTIN TIME 66.8 seconds 22.5-36.0 H (BEAKER) (test code = 760) [id number] 19:49:00 Test Item Value Reference Range Interpretation Comments PARTIAL THROMBOPLASTIN TIME > seconds 22.5-36.0 HH (AKER) (test code = 760) POCT-GLUCOSE [id number] 17:09:00 Test Item Value Reference Range Interpretation Comments POC-GLUCOSE METER 145 mg/dL 70-110 H : TESTED A T [facility] 6720 ([facility]) (test code = [facility], 1538) [address]: Commercial Assistant/Techni kush ID = [id number] for Christina Chisholm POCT-GLUCOSE [id number] 12:10:00 Test Item Value Reference Range Interpretation Comments POC-GLUCOSE METER 113 mg/dL 70-110 H : TESTED A T [facility] 6720 ([facility]) (test code = [facility], 1538) 21763: Commercial Assistant/Techni kush ID = [id number] for Eugneia Chisholmia [id number] 11:50:00 Test Item Value Reference Range Interpretation Comments PARTIAL THROMBOPLASTIN TIME 96.6 seconds 22.5-36.0 H ([facility]) (test code = 760) POCT-GLUCOSE [id number] 08:28:00 Test Item Value Reference Range Interpretation Comments POC-GLUCOSE METER 150 mg/dL 70-110 H : TESTED A T [facility] 6720 ([facility]) (test code = [facility], 1538) 26[address]: Commercial Assistant/Techni kush ID = [id number] for Eugenia Chisholmia BASIC METABOLIC [id number] 06:15:00 Test Item Value Reference Range Interpretation [...] S NOT APPLICABLE FOR DIALYSIS PATIEN TS. Commercial Assistant ID - BSCBC W/PLT COUNT & AUTO [id number] 06:12:00 Test Item Value Reference Range Interpretation [...] 0-1 PERCENT (BEAKER) (test code = 2801) [id number] 05:43:00 Test Item Value Reference Range Interpretation Comments PARTIAL THROMBOPLASTIN TIME 61.8 seconds 22.5-36.0 H (BEAKER) (test code = 760) PROTHROMBIN TIME/[id number] 05:42:00 Test Item Value Reference Range Interpretation [...] METER 122 mg/dL 70-110 H : TESTED A T [facility] 6720 (BEAKER) (test code = [place], 1538) 114[address]: Commercial Assistant/Techni kush ID = [id number] for AN BENITA ERNANDEZ [id number] 22:49:00 Test Item Value Reference Range Interpretation Comments PARTIAL THROMBOPLASTIN TIME 86.0 seconds 22.5-36.0 H (BEAKER) (test code = 760) PT/[id number] 15:29:00 Test Item Value Reference Range Interpretation [...] INR is2.5-3.5 for patients wiht mechanical heart valves.[id number] 15:29:00 Test Item Value Reference Range Interpretation Comments PARTIAL THROMBOPLASTIN TIME 90.0 seconds 22.5-36.0 H (BEAKER) (test code = 760) HEMODIALYSIS [id number] 12:40:00Maria Isabel Kelly RN 03/01/2020 2:57 PMProcedure [...] BP: 112/78 Pulse: 97 Resp: Temp: SpO2:98%[facility] METABOLIC [id number] 12:20:00 Test Item Value Reference Range Interpretation [...] S NOT APPLICABLE FOR DIALYSIS PATIEN TS. Commercial Assistant ID - CAROLINA FCBC W/PLT COUNT & AUTO [id number] 07:29:00 Test Item Value Reference Range Interpretation [...] 0-1 PERCENT (BEAKER) (test code = 2801) [id number] 07:20:00 Test Item Value Reference Range Interpretation Comments PARTIAL THROMBOPLASTIN TIME 61.2 seconds 22.5-36.0 H (BEAKER) (test code = 760) While on warfarin.BASIC METABOLIC [id number] 07:06:00 Test Item Value Reference Range Interpretation Comments SODIUM (BEAKER) 129 meq/L 136-145 L (test code = 381) POTASSIUM (BEAKER) 4.6 meq/L 3.5-5.1 (test code = 379) CHLORIDE (BEAKER) 88 meq/L 98-107 L (test code = 382) CO2 (BEAKER) (test 22 meq/L code = 355) BLOOD UREA NITROGEN 80 [...] S NOT APPLICABLE FOR DIALYSIS PATIEN TS. Commercial Assistant ID - ANTONIA FPROTHROMBIN TIME/[id number] 06:37:00 Test Item Value Reference Range Interpretation [...] for patients wiht mechanical heart valves.While on warfarin.[id number] 23:03:00 Test Item Value Reference Range Interpretation Comments PARTIAL THROMBOPLASTIN TIME 54.4 seconds 22.5-36.0 H (BEAKER) (test code = 760) POCT-GLUCOSE [id number] 22:30:00 Test Item Value Reference Range Interpretation Comments POC-GLUCOSE METER 96 mg/dL 70-110 : TESTED A T [facility] 6720 ([facility]) (test code = [place], 1538) 85[address]: Commercial Assistant/Techni kush ID = [id number] for BENITA MASSEY POCT-GLUCOSE [id number] 15:59:00 Test Item Value Reference Range Interpretation Comments POC-GLUCOSE METER 133 mg/dL 70-110 H : TESTED A T [facility] 6720 ([facility]) (test code = [facility] [facility], 1538) [address]: Commercial Assistant/Techni kush ID = [id number] for Phyllis Rao [id number] 15:38:00 Test Item Value Reference Range Interpretation Comments PARTIAL THROMBOPLASTIN TIME 88.8 seconds 22.5-36.0 H (BEAKER) (test code = 760) POCT-GLUCOSE [id number] 12:08:00 Test Item Value Reference Range Interpretation Comments POC-GLUCOSE METER 130 mg/dL 70-110 H : TESTED A T [facility] 6720 (BEAKER) (test code = [facility] [facility], 1538) [address]: Commercial Assistant/Techni kush ID = [id number] for Phyllis Rao PROTHROMBIN TIME/[id number] 11:48:00 Test Item Value Reference Range Interpretation [...] INR is2.5-3.5 for patients wiht mechanical heart valves.[id number] 09:34:00 Test Item Value Reference Range Interpretation Comments PARTIAL THROMBOPLASTIN TIME 74.6 seconds 22.5-36.0 H (BEAKER) (test code = 760) CBC W/PLT COUNT & AUTO [id number] 01:34:00 Test Item Value Reference Range Interpretation [...] (BEAKER) (test code = 2801) BASIC METABOLIC [id number] 01:29:00 Test Item Value Reference Range Interpretation Comments SODIUM (BEAKER) 130 meq/L 136-145 L (test code = 381) POTASSIUM (BEAKER) 4.7 meq/L 3.5-5.1 (test code = 379) CHLORIDE (BEAKER) 89 meq/L 98-107 L (test code = 382) CO2 (BEAKER) (test 23 meq/L -29 code = 355) BLOOD UREA NITROGEN 59 [...] S NOT APPLICABLE FOR DIALYSIS PATIEN TS. Commercial Assistant ID - PIAYA [id number] 01:13:00 Test Item Value Reference Range Interpretation Comments PARTIAL THROMBOPLASTIN TIME 56.4 seconds 22.5-36.0 H (BEAKER) (test code = 760) POCT-GLUCOSE [id number] 23:59:00 Test Item Value Reference Range Interpretation Comments POC-GLUCOSE METER 134 mg/dL 70-110 H : TESTED A T [facility] 6720 (BEAKER) (test code = [facility], 153) [address]: Commercial Assistant/Techni kush ID = [id number] for SCOOTER MIRZA [id number] 18:52:00 Test Item Value Reference Range Interpretation Comments PARTIAL THROMBOPLASTIN TIME 47.3 seconds 22.5-36.0 H (BEAKER) (test code = 760) [id number] 18:18:00 Test Item Value Reference Range Interpretation Comments PARTIAL THROMBOPLASTIN TIME > seconds 22.5-36.0 HH (BEAKER) (test code = 760) POCT-GLUCOSE [id number] 18:15:00 Test Item Value Reference Range Interpretation Comments POC-GLUCOSE METER 143 mg/dL 70-110 H : TESTED A T [facility] 6720 (BEAKER) (test code = [facility], 153) 50009: Commercial Assistant/Techni kush ID = [id number] for RANDI WESLEY POCT-GLUCOSE [id number] 12:15:00 Test Item Value Reference Range Interpretation Comments POC-GLUCOSE METER 123 mg/dL 70-110 H : TESTED A T [facility] 6720 (BEAKER) (test code = [facility] Humberto [facility], 1538) [address]: Commercial Assistant/Techni kush ID = [id number] for RANDI WELSEY [id number] 11:28:00 Test Item Value Reference Range Interpretation Comments PARTIAL THROMBOPLASTIN TIME 57.3 seconds 22.5-36.0 H (BEAKER) (test code = 760) POCT-GLUCOSE [id number] 06:49:00 Test Item Value Reference Range Interpretation Comments POC-GLUCOSE METER 86 mg/dL 70-110 : TESTED A T [facility] 6720 (BEAKER) (test code = [facility] [place], 1538) [address]: Commercial Assistant/Techni kush ID = [id number] for SCOOTER MAYA BASIC METABOLIC [id number] 06:19:00 Test Item Value Reference Range Interpretation [...] S NOT APPLICABLE FOR DIALYSIS PATIEN TS. Commercial Assistant ID - PIAYA LCBC W/PLT COUNT & AUTO [id number] 04:57:00 Test Item Value Reference Range Interpretation [...] PERCENT (BEAKER) (test code = 2801) POCT-GLUCOSE [id number] 02:25:00 Test Item Value Reference Range Interpretation Comments POC-GLUCOSE METER 69 mg/dL 70-110 L : TESTED A T [facility] 6720 (JARROD) (test code = [place], 1538) [address]: Commercial Assistant/Techni kush ID = [id number] for RADHA PEREZ FL, FLUORO, NON-SPECIFIC, UP TO 1 [id number] 01:47:00Reason for exam:- >orif right femurFluoroscopic unit utilized for a procedure performed in the OR. No interpretation was requested. Refer to the operative report for findings. Refer to PACS for patient radiation dose information.FL fluoro non- specific up to 1 [id number] 01:47:00Interface, External Ris In - 02/28/2020 1:50 AM CDTFluoroscopic unit utilized for a procedure performed in the OR. No interpretation was requested. Refer to the operative report for findings. Referto PACS for patient radiation dose information[facility] 20:21:00 Test Item Value Reference Range Interpretation Comments PARTIAL THROMBOPLASTIN TIME 41.1 seconds 22.5-36.0 H (JARROD) (test code = 760) 6 hours after starting heparin infusion and as indicated per sliding scale HEMODIALYSIS [id number] 18:35:06Alma Delia Rachel RN 02/27/2020 6:35 PMLab [...] Patient tolerated procedure well. Alma Delia Rachel RNCHI [facility] HospitalPOCT-GLUCOSE [id number] 17:57:00 Test Item Value Reference Range Interpretation Comments POC-GLUCOSE METER 82 mg/dL 70-110 : [facility] (BEAKER) (test code = [place] [facility], 1538) [address]: Commercial Assistant/Techni kush ID = [id number] for ALMA DELIA PATHAK [id number] 17:14:00 Test Item Value Reference Range Interpretation Comments Ferritin (test code = 5182.19 ng/mL 5-275 H 2276-4) ALVIN (test code = ALVIN) Commercial Assistant ID - JOEL W Lab Interpretation (test Abnormal code = 60881-0) [facility] HospitalFERRITIN2020-06-27 17:14:00 Test Item Value Reference Range Interpretation Comments FERRITIN (BEAKER) (test code = 5182.19 ng/mL 5.00-275.00 H 361) Commercial Assistant ID - JOEL Kim, TIBC, % sat. (without ferritin)2020-02-27 16:01:00 Test Item Value Reference Range Interpretation Comments Iron (test code = 2498-4) 125.0 ug/dL 40-160 TIBC (test code = 2500-7) 219 ug/dL 250-450 L Iron % Saturation (test 57 % 20-55 H code = 2502-3) ALVIN (test code = ALVIN) Commercial Assistant ID - JOEL W Lab Interpretation (test Abnormal code = 02088-3) [facility] HospitalIRON, TIBC, % SAT. (WITHOUT FERRITIN)2020-02-27 16:01:00 Test Item Value Reference Range Interpretation Comments IRON (BEAKER) (test code = 547) 125.0 ug/dL 40.0-160.0 TOTAL IRON BINDING CAPACITY 219 ug/dL 250-450 L (BEAKER) (test code = 769) IRON % SATURATION (2) (BEAKER) 57 % 20-55 H (test code = 2590) Commercial Assistant ID Patel MALDONADO [id number] 12:54:00 Test Item Value Reference Range Interpretation Comments PARTIAL THROMBOPLASTIN TIME 41.5 seconds 22.5-36.0 H (BEAKER) (test code = 760) Prior to initiating heparinPlatelet [id number] 12:51:00 Test Item Value Reference Range Interpretation Comments Platelets (test code = 116 150- 450 K/CU MM L 777-3) ALVIN (test code = ALVIN) Commercial Assistant ID - [id number] clot Lab Interpretation (test Abnormal code = 39868-3) [facility] HospitalPLATELET [id number] 12:51:00 Test Item Value Reference Range Interpretation Comments PLATELET COUNT (BEAKER) (test 116 K/CU MM 150-450 L code = 756) Commercial Assistant ID - [id number] clotSARS-CoV2/RT-PCR (Asymptomatic ONLY)2020-02-27 12:46:00 Test Item Value Reference Range Interpretation Comments SARS-COV2/RT-PCR Negative Not Detected, (test code = Negative 54385-7) SARS-COV-2 [facility] PERFORMING LAB (test code = 63717-9) ALVIN (test code = Negative result for [...] of the Act. Fact Sheet for Healthcare Providers:https://www.Sword.com idePounce.Win the Planet/sites/default/f mio/product/documents/F act_Sheet_HC_Providers_L fcj_CYUP-SsB-5.pdf Fact Sheet for Healthcare Patients:https://www.ScriptRock/sites/default/fi les/product/documents/Fa ct_Sheet_Patients_Lyra_S ARS-CoV-2.pdf Performing Laboratory:[facility] [place] [address] [facility] CenterARS[facility] ([facility])2020-02-27 12:46:00 Test Item Value Reference Range Interpretation Comments SARS-COV2/RT-PCR (test code = Negative Not Detected, Negative 7436422) SARS-COV-2 PERFORMING LAB [facility] (test code = 6975420) Negative result for this test determines that [...] 564(g) of the Act.Fact Sheet for Healthcare Providers:https://www.Kintera/sites/default/files/product/documents/Fact_Shee o_YU_Labwrevin_Tkgw_JVTV-UsW-8.pdfFact Sheet for Healthcare Patients:https://www.Kintera/sites/default/files/product/ documents/Cfcc_Poeps_Eugpqhsh_Jfpe_ZIEO-UcH-4.pdfPerforming Laboratory:[facility], [place] [address]FLJL-LMMSAKC METER 2020-02-27 12:12:00 Test Item Value Reference Range Interpretation Comments POC-GLUCOSE METER 90 mg/dL 70-110 : TESTED A T [facility] 6720 (BEAKER) (test code = [facility] Paul [facility], 1538) 47[address]: Commercial Assistant/Techni kush ID = [id number] for ANTONIO ABENA YI Hepatitis B surface [id number] 11:32:00 Test Item Value Reference Range Interpretation Comments HBsAg Screen (test code Nonreactive Nonreactive = 5195-3) ALVIN (test code = ALVIN) Specimen is considered negative for HBsAg. Lab Interpretation (test Normal code = 68627-2) [facility] HospitalHEPATITIS B SURFACE [id number] 11:32:00 Test Item Value Reference Range Interpretation Comments HEPATITIS B SURFACE ANTIGEN (2) Nonreactive Nonreactive (BEAKER) (test code = 2585) Specimen is considered negative for HBsAg.RAD, WRIST, 2 VIEWS, [id number] 09:19:00Reason for exam:->fall, immbolityFINAL REPORT TECHNIQUE: Frontal, oblique, and lateral views of the left wrist. INDICATION: Fall immobility. COMPARISON: None. FINDINGS:No acute fractures or dislocations.Joint spaces are within normal limits.There are atherosclerotic calcifications of the vessels. Surgical clipsproject over the distal radius.. IMPRESSION:No acute osseous abnormality. Signed: Bhavin Artis Verified Date/Time: 02/27/2020 09:19:08 Reading Location: [facility] C013Y CT Body ReadingRoom XR wrist 2 views [id number] 09:19:00Interface, External Ris In - 02/27/2020 9:21 AM CDTFINAL REPORT TECHNIQUE: Frontal, oblique, and lateral views of the left wrist. INDICATION: Fall immobility. COMPARISON: None. FINDINGS:No acute fractures or dislocations.Joint spaces are within normal limits.There are atherosclerotic calcifications of the vessels. Surgical clips project over the distal radius.. IMPRESSION:No acute osseous abnormality. Signed: Bhavin Artis MDReport Verified Date/Time: 02/27/2020 09:19:08 Reading Location: [facility] C013Y CT Body Reading Room [facility] HospitalAntibody [id number] 08:56:00 Test Item Value Reference Range Interpretation Comments [facility] UNID IgG (test code = 2253) Antibody Consult SIGNED OUT An IgG anti body of (test code = 2479) undetermi christian specificity is detected, trans fuse crossmatch comp atible RBCs.Electronic Signature: Rosendo Shirley M.D. [facility] HospitalPotassium2020-06-27 08:30:00 Test Item Value Reference Range Interpretation Comments Potassium (test code = 5.0 meq/L 3.5-5.1 2823-3) ALVIN (test code = ALVIN) Commercial Assistant ID - AKSHAT L Lab Interpretation (test Normal code = 89350-2) [facility] HospitalPOTASSIUM2020-06-27 08:30:00 Test Item Value Reference Range Interpretation Comments POTASSIUM (BEAKER) (test code = 5.0 meq/L 3.5-5.1 379) Commercial Assistant ID - AKSHAT LType and screen, [id number] 08:01:00 Test Item Value Reference Range Interpretation Comments ABO/RH AUTOMATED (BEAKER) (test AB POSITIVE code = 2260) Ab Scrn (test code = 890-4) POSITIVE ECHO 2 [facility] HospitalRAD, PELVIS, 1 OR 2 [id number] 07:23:00Reason for exam:->femoral neck fxFINAL REPORT RAD, [...] Lisa Verified Date/Time: 02/27/2020 07:23:52 Reading Location: [facility] C013 Neuro Reading Room RAD, HIP, 2 VIEWS, [id number] 07:23:00Reason for exam:- >femoral neck fractureFINAL REPORT [...] Lisa Verified Date/Time: 02/27/2020 07:23:52 Reading Location: [facility] C013V Neuro Reading Room XR hip 2 views [id number] 07:23:00Interface, External Ris In - 02/27/2020 7:26 [...] Radha Lisa VerifiedDate/Time: 02/27/2020 07:23:52 Reading Location: [address] Neuro [facility] or 2 [id number] 07:23:00Interface, External Ris In - 02/27/2020 7:26 [...] Radha Lisa VerifiedDate/Time: 02/27/2020 07:23:52 Reading Location: [address] Neuro Reading Room [facility] POCT-GLUCOSE [id number] 06:26:00 Test Item Value Reference Range Interpretation Comments POC-GLUCOSE METER 72 mg/dL 70-110 : TESTED A T [facility] 6720 (GAELAKER) (test code = FOSTER Paul [place], 1538) [address]: Commercial Assistant/Techni kush ID = [id number] for SCOOTER MAYA Comprehensive metabolic [id number] 02:44:00 Test Item Value Reference Range Interpretation Comments Protein, Total (test 9.6 6.0- 8.3 gm/dL H code = 2885-2) Albumin (test code = 4.3 g/dL 3.5-5 28878-3) Alkaline Phosphatase 85 U/L 40-150 (test code = 6768-6) Total Bilirubin (test 1.1 mg/dL 0.2-1.2 code = 1975-2) Sodium (test code = 132 meq/L 136-145 L 2951-2) Potassium (test code = 5.9 meq/L 3.5-5.1 H 2823-3) Chloride (test code = 91 meq/L 98-107 L 5-0) CO2 (test code = 24 meq/L -29 8-9) BUN (test code = 58 mg/dL 7-21 H 3094-0) Creatinine (test code 8.80 mg/dL 0.57-1.25 H = 2160-0) Glucose (test code = 99 mg/dL 70-105 2345-7) Calcium (test code = 9.2 mg/dL 8.4-10.2 14084-1) AST (test code = 44 U/L 5-34 H 1920-8) ALT (test code = 36 U/L 6-55 1742-6) EGFR (test code = 7 mL/min/1.73 [place] [address]-8) NOT ACCURATE CREATININE CLEARANCE IN PREDICTING GLOMERULAR FILTRATION RATE . ESTIMATED GFR I S NOT APPLICABLE FOR DIALYSIS PATIENTS. ALVIN (test code = ALVIN) Commercial Assistant ID - PIAYA L Lab Interpretation Abnormal (test code = 05026-2) [facility] [id number] 02:44:00 Test Item Value Reference Range Interpretation [...] = 382) CO2 (BEAKER) (test 24 meq/L - code = 355) BLOOD UREA NITROGEN 58 [...] S NOT APPLICABLE FOR DIALYSIS PATIEN TS. Commercial Assistant ID - AKSHAT LPROTHROMBIN TIME/[id number] 02:03:00 Test Item Value Reference Range Interpretation [...] INR is2.5-3.5 for patients wiht mechanical heart valves.Urznmzjey6609-29-03 01:56:00 Test Item Value Reference Range Interpretation Comments Magnesium (test code = 1.9 mg/dL 1.6-2.6 74379-9) ALVIN (test code = ALVIN) Commercial Assistant ID - AKSHAT L Lab Interpretation (test Normal code = 59532-8) [facility] 01:56:00 Test Item Value Reference Range Interpretation Comments Phosphorus (test code = 7.3 mg/dL 2.3-4.7 H 2777-1) ALVIN (test code = ALVIN) Commercial Assistant ID - AKSHAT L Lab Interpretation (test Abnormal code = 45292-3) [facility]2020-[facility]-27 01:56:00 Test Item Value Reference Range Interpretation Comments PHOSPHORUS (BEAKER) (test code = 7.3 mg/dL 2.3-4.7 H 604) Commercial Assistant JOSE - AKSHAT [id number] 01:56:00 Test Item Value Reference Range Interpretation Comments MAGNESIUM (BEAKER) (test code = 1.9 mg/dL 1.6-2.6 627) Commercial Assistant ID Patel ODEN LCBC W/PLT COUNT & AUTO [id number] 01:33:00 Test Item Value Reference Range Interpretation [...] code = 2801) Blood culture, aerobic & ffkdkxlgd1520-10-92 01:33:06 Test Item Value Reference Range Interpretation Comments Blood culture No growth Specimen isolate (test after 5 days InformationSpe cimen code = 600-7) of Source: BloodS pecimen incubation. Site: Hand, rig ht [facility] 12 [id number] 21:54:59 Test Item Value Reference Range Interpretation Comments Ventricular rate (test 96 code = 253) Atrial rate (test code 96 = 255) FL interval (test code 182 = 266) QRSD [...] of 16-FEB-2015 10:01,-No significant change was found- [facility] with platelet and dwabjdtsbvev2088-52-07 06:24:24 Test Item Value Reference Range Interpretation Comments WBC (test code = 02681-6) 6.31 4.50- 11.00 k/uL RBC (test code = 92936-3) 3.41 m/uL 4.4-6 L HGB (test code = 718-7) 11.3 g/dL 14-18 L HCT (test code = 4544-3) 33.9 % 41-51 L MCV (test code = 787-2) 99.4 fL 82-100 MCH (test code = 785-6) 33.1 pg 27-34 MCHC (test code = 786-4) 33.3 g/dL 31-37 RDW - SD (test code = 12831-3) 45.9 fL 37-55 MPV (test code = 46196-8) 8.0 fL 8.8-13.2 L Platelet count (test code = 133 150- 400 k/uL L 03497-8) Neutrophils (test code = 46166-9) 69.0 % 39-69 Lymphocytes (test code = 97417-2) 17.0 % 25-45 L Monocytes (test code = 10839-0) 14.0 % 0-10 H Eosinophils (test code = 44314-3) 0.0 % 0-5 Basophils (test code = 33016-5) 0.0 % 0-1 Lab Interpretation (test code = Abnormal 36856-2) [facility] [id number] 04:04:40 Test Item Value Reference Range Interpretation Comments Manual differential (test code = PERFORMED 27817-7) Neutrophils (test code = 69.0 % 39-69 18719-7) Lymphocytes (test code = 17.0 % 25-45 L 27850-1) Monocytes (test code = 86775-9) 14.0 % 0-10 H Eosinophils (test code = 0.0 % 0-5 00254-0) Basophils (test code = 63079-1) 0.0 % 0-1 Metamyelocytes (test code = 0 % 740-1) Promyelocytes (test code = 0 % 783-1) Platelet slide review (test code Cayla slt decr = 50539-6) Anisocytosis (test code = 702-1) Moderate Polychromasia (test code = Moderate 95354-6) Spherocytes (test code = 802-9) Occasional Ovalocytes (test code = 774-0) Moderate Lab Interpretation (test code = Abnormal 97100-7) [facility] metabolic [id number] 21:52:24 Test Item Value Reference Range Interpretation Comments Sodium (test code = 2951-2) 135 128- 145 mEq/L Potassium (test code = 2823-3) 4.9 3.6- 5.1 mEq/L CO2 (test code = 2027-9) 30 18- 33 mEq/L Chloride (test code = 2075-0) 91 98- 108 mEq/L L Glucose (test code = 2345-7) 94 mg/dL 73-118 Calcium (test code = 95756-6) 9.1 mg/dL 8-10.3 BUN (test code = [...] 6.4-8.1 H Anion gap (test code = 25004-6) 14@ANIO 7- 15 mEq/L A/G ratio (test code = 1759-0) 0.8 0.7-3.8 Lab Interpretation (test code = Abnormal 85902-9) [facility] MethodistBilirubin [id number] 21:52:24 Test Item Value Reference Range Interpretation Comments Bilirubin direct (test code = 0.3 mg/dL 0-0.3 1968-03) [facility] MethodistEstimated [id number] 21:52:24 Test Item Value Reference Range Interpretation Comments Estimated GFR (test 12 mL/min/1.73 m2 A Yesenia beck Units code = 5488) InterpretationG 1 >=90 Jazmine l or highG2 60-89 Mildly decrease dG3a 45-59 Mil dly to moderately decr cwzrbA4o 30-44 Moderately to s everely decreasedG4 15-29 Severe ly decreasedG5 <15 Kidney blanco lureThe eGFR was calcul ated using the Chron ic Kidney Disease Epidemiology Collaboration ( CKD-EPI) equation. Interpretation is based on recommendati ons of the National Ki dney Foundation-Kidn ey Disease Outcome s Quality Initiat samreen (NKF-KDOQI) pub lished in 2013. Lab Interpretation Abnormal (test code = 98005-0) Rene MethodistCT Abdomen Pelvis Wo [id number] 20:53:43Hm Interface, Radiology Results Incoming - 09/12/2019 8:56 PM CSTEXAMINATION: CT ABDOMEN [...] kidneys.6.No intestinal obstruction or evidence of inflammation.Rene Anderson, M-[id number] 20:46:29 Test Item Value Reference Range Interpretation [...] quired to rule out acute myocardial injury. [facility] Chest 2 [id number] 20:46:25Hm Interface, Radiology Results 09/12/2019 8:49 PM CSTEXAMINATION: XR CHEST 2 VWCLINICAL HISTORY: sobCOMPARISON: NoneIMPRESSION:Status post median sternotomy and valvular surgery. Atrial clip present. There is mild cardiomegaly. There is mild central vascular congestion. There is small right pleural effusion with volume loss in the right base. Lungs are otherwise clear. There is no pneumothorax. Visualized osseous structures are intact. [facility]-[id number] MethodistVenous blood gas 2019-09-12 20:39:32 Test Item [...] (test 32.9 mmol/L 21-28 H code = 03383-9) O2 saturation, venous, POC (test 68 % 40-70 code = 2711-0) Lab Interpretation (test code = Abnormal 09357-9) [facility] MethodistLactic acid, Q-[id number] 20:37:11 Test Item Value Reference Range Interpretation Comments Lactic acid, I-Stat (test code = 2.0 mmol/L 0.5-2.2 50867-9) [facility] MethodistInfluenza roiigyu9163-29-32 20:05:58 Test Item Value Reference Range Interpretation Comments Influenza Flue B: Specimen antigen (test positive InformationSpe cimen code = 1604) Flue A: Source: NaresSp ecimen negative Site: [facility] Preliminary Interpretation - Not an [id number] 19:29:23Ty Nieves MD 09/13/2019 6:41 [facility] ED Preliminary Interpretation - Not an OrderPerformed by: Ty Nieves MDAuthorized by: Ty Nieves MD ECG reviewed by ED Physician in the absence of a mechanical drawing teacher: yes Interpretation: Interpretation: non-specific Rate: ECG r ate: 96 ECG rate assessment: normal Rhythm: Rhythm: sinus rhythm Ectopy: Ectopy: none QRS: QRS axis: NormalConduction: Conduction: normal ST segments: ST segments: NormalT waves: T waves: peaked Peaked: V3, V4, V5, V6, II, III and aVFHouston MethodistAFB CULTURE + [id number] 07:33:00 Test Item Value Reference Range Interpretation Comments CULTURE ([facility]) (test No acid-fast bacilli code = 1095) isolated in 42 days AFB SMEAR ([facility]) No acid fast bacilli (test code = 994) seen FUNGUS CULTURE + [id number] 17:26:00 Test Item Value Reference Range Interpretation Comments CULTURE ([facility]) (test No fungus isolated in code = 1095) 28 days FUNGUS SMEAR ([facility]) No fungi seen (test code = 1406) POCT-GLUCOSE [id number] 13:35:00 Test Item Value Reference Range Interpretation Comments POC-GLUCOSE METER 116 mg/dL 70-110 H TESTED AT [place] [address] ([facility]) (test code = [facility] 1538) [address] POCT-GLUCOSE [id number] 08:54:00 Test Item Value Reference Range Interpretation Comments POC-GLUCOSE METER 99 mg/dL 70-110 TESTED AT [place] [address] ([facility]) (test code = [facility] [address] 1538) [id number] 06:34:00 Test Item Value Reference Range Interpretation Comments PARTIAL THROMBOPLASTIN TIME 46.7 seconds 22.5-36.0 H ([facility]) (test code = 760) While on warfarin.PROTHROMBIN TIME/[id number] 06:33:00 Test Item Value Reference Range Interpretation Comments PROTIME ([facility]) (test code = 26.5 seconds 11.7-14.7 H 759) INR ([facility]) (test code = 370) 2.6 <=5.9 RECOMMENDED [...] CORPUSCULAR HEMOGLOBIN CONC 30.8 GM/DL 32.3-36.5 L ([facility]) (test code = 752) RED CELL DISTRIBUTION WIDTH 17.9 % 11.6-14.4 H ([facility]) (test code = 412) PLATELET COUNT ([facility]) (test 148 K/CU MM 150-450 L code = 756) MEAN PLATELET VOLUME ([facility]) 9.2 fL 9.4-12.4 L (test code = 754) NUCLEATED RED BLOOD CELLS 1 /100 WBC 0-0 H ([facility]) (test code = 413) POCT-GLUCOSE [id number] 21:38:00 Test Item Value Reference Range Interpretation Comments POC-GLUCOSE METER 192 mg/dL 70-110 H TESTED AT [place] [address] ([facility]) (test code = MARIA GOSMAN Paul [facility] 1538) [address] POCT-GLUCOSE [id number] 13:01:00 Test Item Value Reference Range Interpretation Comments POC-GLUCOSE METER 200 mg/dL 70-110 H TESTED AT [place] [address] ([facility]) (test code = FOSTER Paul [facility] 1538) [address] POCT-GLUCOSE [id number] 08:00:00 Test Item Value Reference Range Interpretation Comments POC-GLUCOSE METER 123 mg/dL 70-110 H TESTED AT [place] [address] ([facility]) (test code = [facility] Humberto [facility] 1538) [address] [id number] 06:40:00 Test Item Value Reference Range Interpretation Comments PARTIAL THROMBOPLASTIN TIME 83.1 seconds 22.5-36.0 H ([facility]) (test code = 760) [id number] 05:54:00 Test Item Value Reference Range Interpretation Comments PARTIAL THROMBOPLASTIN TIME > seconds 22.5-36.0 HH ([facility]) (test code = 760) PROTHROMBIN TIME/[id number] 05:30:00 Test Item Value Reference Range Interpretation Comments PROTIME ([facility]) (test code = 24.1 seconds 11.7-14.7 H 759) INR ([facility]) (test code = 370) 2.3 <=5.9 RECOMMENDED [...] (BEAKER) (test code = 413) BASIC METABOLIC [id number] 05:10:00 Test Item Value Reference Range Interpretation [...] mg/dL 8.4-10.2 (test code = 697) EGFR (JARROD) (test 15 mL/min/1.73 ESTIMA JAYLA GFR IS code = 1092) sq m NOT ACCURATE CREATININE CLEARANCE IN PREDICTING GLOMERULAR FILTRATION RATE . ESTIMATED GFR I S NOT APPLICABLE FOR DIALYSIS PATIEN TS. OCCULT BLOOD, [id number] 23:46:00 Test Item Value Reference Range Interpretation Comments FECAL OCCULT BLOOD (JARROD) (test Negative Negative code = 618) POCT-GLUCOSE [id number] 22:52:00 Test Item Value Reference Range Interpretation Comments POC-GLUCOSE METER 192 mg/dL 70-110 H TESTED AT [place] [address] ([facility]) (test code = FOSTER Paul [facility] 1538) [address] POCT-GLUCOSE [id number] 17:11:00 Test Item Value Reference Range Interpretation Comments POC-GLUCOSE METER 149 mg/dL 70-110 H TESTED AT [place] [address] ([facility]) (test code = FOSTER Paul [facility] 1538) [address] PROTHROMBIN [id number] 13:00:00 Test Item Value Reference Range Interpretation Comments PROTIME (JARROD) (test code = 19.9 seconds 11.7-14.7 H 759) INR [facility] (test code = 370) 1.8 <=5.9 RECOMMENDED COUMADIN/WARFARIN INR THERAPY RANGESSTANDARD DOSE: 2.0 - 3.0 Includes: PROPHYLAXIS forvenous thrombosis, systemic embolization; TREATMENT for venous thrombosis and/or pulmonary embolus.HIGH RISK: Target INR is 2.5-3.5 for patients with mechanical heart valves.While on warfarin.POCT-GLUCOSE METER 2019-01-04 12:14:00 Test Item Value Reference Range Interpretation Comments POC-GLUCOSE METER 134 mg/dL 70-110 H TESTED AT [place] [address] ([facility]) (test code = [facility] Humberto [facility] 1538) [address] RAD, CHEST, 1 VIEW, NON [id number] 08:02:00Reason for exam:->Post opShould this be performed [...] MDReport Verified Date/Time: 01/04/2019 08:02:18 Reading Location: [address] Consult Reading Room Electronicallysigned by: EDENILSON BLOOM M.D. on 01/04/2019 08:02 AMPOCT-GLUCOSE [id number] 07:42:00 Test Item Value Reference Range Interpretation Comments POC-GLUCOSE METER 98 mg/dL 70-110 TESTED AT [facility] 6720 (BEAKER) (test code = [place] [address] 1538) BASIC METABOLIC [id number] 07:28:00 Test Item Value Reference Range Interpretation [...] 697) EGFR (BEAKER) (test 25 mL/min/1.73 ESTIMA JALYA GFR IS code = 1092) sq m [...] 0-0 H (BEAKER) (test code = 413) [id number] 06:08:00 Test Item Value Reference Range Interpretation Comments PARTIAL THROMBOPLASTIN TIME 70.6 seconds 22.5-36.0 H ([facility]) (test code = 760) [id number] 23:32:00 Test Item Value Reference Range Interpretation Comments PARTIAL THROMBOPLASTIN TIME 77.2 seconds 22.5-36.0 H ([facility]) (test code = 760) POCT-GLUCOSE [id number] 21:55:00 Test Item Value Reference Range Interpretation Comments POC-GLUCOSE METER 150 mg/dL 70-110 H TESTED AT [facility] 67 ([facility]) (test code = FOSTER [place] 1538) [address] [id number] 18:25:00 Test Item Value Reference Range Interpretation Comments PARTIAL THROMBOPLASTIN TIME 71.2 seconds 22.5-36.0 H ([facility]) (test code = 760) POCT-GLUCOSE [id number] 13:45:00 Test Item Value Reference Range Interpretation Comments POC-GLUCOSE METER 375 mg/dL 70-110 H Notified R Toy PÉREZ/TESTED ([facility]) (test code = AT [facility] 67[address] [facility] 1538) [facility] [address] [id number] 10:26:00 Test Item Value Reference Range Interpretation Comments PARTIAL THROMBOPLASTIN TIME 94.0 seconds 22.5-36.0 H ([facility]) (test code = 760) While on warfarin.PROTHROMBIN TIME/[id number] 10:24:00 Test Item Value Reference Range Interpretation [...] METER 124 mg/dL 70-110 H TESTED AT [facility] 67 ([facility]) (test code = FOSTER Paul [facility] 1538) [address] RAD, CHEST, 1 VIEW, NON [id number] 08:19:00Reason for exam:->Post opShould this be performed [...] MDReport Verified Date/Time: 01/03/2019 08:19:51 Reading Location: [facility] C013V Neuro Reading Room [id number] 03:31:00 Test Item Value Reference Range Interpretation Comments PARTIAL THROMBOPLASTIN TIME 64.2 seconds 22.5-36.0 H (BEAKER) (test code = 760) BASIC METABOLIC [id number] 03:21:00 Test Item Value Reference Range Interpretation [...] 150-450 code = 756) MEAN PLATELET VOLUME ([facility]) 8.7 fL 9.4-12.4 L (test code = 754) NUCLEATED RED BLOOD CELLS 1 /100 WBC 0-0 H ([facility]) (test code = 413) POCT-GLUCOSE [id number] 22:54:00 Test Item Value Reference Range Interpretation Comments POC-GLUCOSE METER 206 mg/dL 70-110 H TESTED AT [place] [address] ([facility]) (test code = FOSTER Paul [facility] 1538) [address] [id number] 19:36:00 Test Item Value Reference Range Interpretation Comments PARTIAL THROMBOPLASTIN TIME 79.3 seconds 22.5-36.0 H ([facility]) (test code = 760) POCT-GLUCOSE [id number] 17:59:00 Test Item Value Reference Range Interpretation Comments POC-GLUCOSE METER 186 mg/dL 70-110 H TESTED AT [place] [address] ([facility]) (test code = FOSTER Paul [facility] 1538) [address] POCT-GLUCOSE [id number] 13:54:00 Test Item Value Reference Range Interpretation Comments POC-GLUCOSE METER 139 mg/dL 70-110 H TESTED AT [place] [address] ([facility]) (test code = FOSTER Paul [place] 1538) [address] POCT-GLUCOSE [id number] 13:05:00 Test Item Value Reference Range Interpretation Comments POC-GLUCOSE METER 163 mg/dL 70-110 H TESTED AT [place] [address] ([facility]) (test code = FOSTER Paul [place] 1538) [address] [id number] 12:49:00 Test Item Value Reference Range Interpretation Comments PARTIAL THROMBOPLASTIN TIME 64.9 seconds 22.5-36.0 H ([facility]) (test code = 760) OCCULT BLOOD, [id number] 12:31:00 Test Item Value Reference Range Interpretation Comments FECAL OCCULT BLOOD ([facility]) (test Negative Negative code = 618) RAD, CHEST, 1 VIEW, NON [id number] 10:37:00Reason for exam:->Post opShould this be performed [...] Date/Time: 01/02/2019 10:37:35 Reading Loc ation: [facility] Radiology Reading Room POCT-GLUCOSE [id number] 08:07:00 Test Item Value Reference Range Interpretation Comments POC-GLUCOSE METER 107 mg/dL 70-110 TESTED AT [facility] 6720 [facility] (test code = FOSTER Paul [place] 1538) [address] [id number] 04:48:00 Test Item Value Reference Range Interpretation Comments PARTIAL THROMBOPLASTIN TIME 106.0 seconds 22.5-36.0 H (BEAKER) (test code = 760) While on warfarin.BASIC METABOLIC [id number] 04:48:00 Test Item Value Reference Range Interpretation [...] NOT APPLICABLE FOR DIALYSIS PATIEN TS. PROTHROMBIN TIME/[id number] 04:39:00 Test Item Value Reference Range Interpretation [...] 0-0 (BEAKER) (test code = 413) POCT-GLUCOSE [id number] 22:17:00 Test Item Value Reference Range Interpretation Comments POC-GLUCOSE METER 117 mg/dL 70-110 H TESTED AT [place] [address] ([facility]) (test code = FOSTER Paul [facility] 1538) [address] RAD, CHEST, 1 VIEW, NON [id number] 19:40:00Reason for exam:->Post opShould this be performed [...] Bloom Verified Date/Time: 01/01/2019 19:40:01 Reading Location: [address] Consult Reading Room POCT-GLUCOSE [id number] 18:22:00 Test Item Value Reference Range Interpretation Comments POC-GLUCOSE METER 159 mg/dL 70-110 H TESTED AT [place] [address] ([facility]) (test code = [facility] Humberto [facility] 1538) [address] POCT-GLUCOSE [id number] 14:12:00 Test Item Value Reference Range Interpretation Comments POC-GLUCOSE METER 135 mg/dL 70-110 H TESTED AT [place] [address] ([facility]) (test code = [facility] 1538) [address] HEPATITIS B SURFACE [id number] 11:52:00 Test Item Value Reference Range Interpretation Comments HEPATITIS B SURFACE ANTIGEN (2) Nonreactive Nonreactive ([facility]) (test code = 2585) POCT-GLUCOSE [id number] 08:40:00 Test Item Value Reference Range Interpretation Comments POC-GLUCOSE METER 85 mg/dL 70-110 TESTED AT [place] [address] ([facility]) (test code = [facility] [address] 1538) BASIC METABOLIC [id number] 04:17:00 Test Item Value Reference Range Interpretation Comments SODIUM ([facility]) 132 meq/L 136-145 L (test code = [...] S NOT APPLICABLE FOR DIALYSIS PATIEN TS. [id number] 03:40:00 Test Item Value Reference Range Interpretation Comments PARTIAL THROMBOPLASTIN TIME 84.1 seconds 22.5-36.0 H (BEAKER) (test code = 760) While on warfarin.PROTHROMBIN TIME/[id number] 03:39:00 Test Item Value Reference Range Interpretation [...] = 8.3 GM/DL 13.7-17.5 L 410) HEMATOCRIT ([facility]) (test code = 26.3 % 40.1-51.0 L 411) MEAN CORPUSCULAR VOLUME ([facility]) 101.2 fL 79.0-92.2 H (test code = 753) MEAN CORPUSCULAR HEMOGLOBIN 31.9 pg 25.7-32.2 ([facility]) (test code = 751) MEAN CORPUSCULAR HEMOGLOBIN CONC 31.6 GM/DL 32.3-36.5 L ([facility]) (test code = 752) RED CELL DISTRIBUTION WIDTH 15.9 % 11.6-14.4 H ([facility]) (test code = 412) PLATELET COUNT ([facility]) (test 186 K/CU MM 150-450 code = 756) MEAN PLATELET VOLUME ([facility]) 9.0 fL 9.4-12.4 L (test code = 754) NUCLEATED RED BLOOD CELLS 0 /100 WBC 0-0 ([facility]) (test code = 413) POCT-GLUCOSE [id number] 22:08:00 Test Item Value Reference Range Interpretation Comments POC-GLUCOSE METER 194 mg/dL 70-110 H TESTED AT [place] [address] ([facility]) (test code = [facility] 1538) [address] POCT-GLUCOSE [id number] 22:03:00 Test Item Value Reference Range Interpretation Comments POC-GLUCOSE METER 203 mg/dL 70-110 H TESTED AT [place] [address] ([facility]) (test code = [facility] 1538) [address] POCT-GLUCOSE [id number] 21:42:00 Test Item Value Reference Range Interpretation Comments POC-GLUCOSE METER 42 mg/dL 70-110 L TESTED AT [place] [address] ([facility]) (test code = [facility] [address] 1538) [id number] 21:35:00 Test Item Value Reference Range Interpretation Comments PARTIAL THROMBOPLASTIN TIME 80.4 seconds 22.5-36.0 H ([facility]) (test code = 760) POCT-GLUCOSE [id number] 18:03:00 Test Item Value Reference Range Interpretation Comments POC-GLUCOSE METER 144 mg/dL 70-110 H TESTED AT [place] [address] ([facility]) (test code = [facility] 1538) [address] TISSUE [id number] 16:33:00Surgical Pathology Report Case: [id number] Authorizing Provider: Enmanuel Sharma Collected: 12/26/2018 Darya Louie MD OrderingLocation: [address] Received: 12/29/2018 0814 Service Pathologist: Brigida [...] stains. GMSImmunohistochemistry technical testing was performed at [facility], Pathology Laboratory where it was developed [...] toperform high complexity clinical laboratory testing.CPT CODE: [id number] electronically signed byBrigida Parks MD on 12/31/2018 [...] ARE NEGATIVE Signing Pathologist Direct Phone Line: [phone] signed by Brigida Parks MD on 12/30/2018 at 6:43 PMPreliminary result electronically signed by Brigida Parks MD on 12/29/2018 at 4:54 [id number] X 2; 11903; 43755; 76084 X 2Upper endoscopy, biopsyPreoperative and postoperative diagnosis: [...] AND CMVImmunohistochemistry technical testing was performed at [facility], Pathology Laboratory where it was developed [...] qualified toperform high complexity clinical laboratory testing.POCT-GLUCOSE [id number] 13:57:00 Test Item Value Reference Range Interpretation Comments POC-GLUCOSE METER 178 mg/dL 70-110 H TESTED AT [facility] 6720 ([facility]) (test code = MARIA GOSMAN Paul [facility] 1538) [address] [id number] 12:54:00 Test Item Value Reference Range Interpretation Comments PARTIAL THROMBOPLASTIN TIME 69.4 seconds 22.5-36.0 H ([facility]) (test code = 760) RAD, CHEST, 1 VIEW, NON [id number] 09:26:00Reason for exam:->Post opShould this be performed [...] MDReport Verified Date/Time: 12/31/2018 09:26:31 Reading Location: [facility] Radiology Reading Room POCT-GLUCOSE [id number] 09:01:00 Test Item Value Reference Range Interpretation Comments POC-GLUCOSE METER 162 mg/dL 70-110 H TESTED AT [facility] 6720 (BEAKER) (test code = FOSTER [place]PE[place] 1538) [address] BASIC METABOLIC [id number] 06:50:00 Test Item Value Reference Range Interpretation [...] NOT APPLICABLE FOR DIALYSIS PATIEN TS. PROTHROMBIN [id number] 06:38:00 Test Item Value Reference Range Interpretation Comments PROTIME (BEAKER) (test code = 19.1 seconds 11.7-14.7 H 759) INR (BEAKER) (test code = 370) 1.7 <=5.9 RECOMMENDED COUMADIN/WARFARIN INR THERAPY RANGESSTANDARD DOSE: 2.0 - 3.0 Includes: PROPHYLAXIS forvenous thrombosis, systemic embolization; TREATMENT for venous thrombosis and/or pulmonary embolus.HIGH RISK: Target INR is 2.5-3.5 for patients with mechanical heart valves.While on warfarin.[id number] 06:37:00 Test Item Value Reference Range Interpretation [...] 0-0 (BEAKER) (test code = 413) POCT-GLUCOSE [id number] 00:45:00 Test Item Value Reference Range Interpretation Comments POC-GLUCOSE METER 124 mg/dL 70-110 H TESTED AT [facility] 6720 (BEAKER) (test code = FOSTER BRANDON 1538) [address] [id number] 19:14:00 Test Item Value Reference Range Interpretation Comments PARTIAL THROMBOPLASTIN TIME 57.8 seconds 22.5-36.0 H (BEAKER) (test code = 760) POCT-GLUCOSE [id number] 17:53:00 Test Item Value Reference Range Interpretation Comments POC-GLUCOSE METER 133 mg/dL 70-110 H TESTED AT [place] [address] (BEAKER) (test code = FOSTER Paul [place] 1538) [address] POCT-GLUCOSE [id number] 13:19:00 Test Item Value Reference Range Interpretation Comments POC-GLUCOSE METER 147 mg/dL 70-110 H TESTED AT [place] [address] (BEAKER) (test code = [facility] Humberto [place] 1538) [address] [id number] 12:43:00 Test Item Value Reference Range Interpretation Comments PARTIAL THROMBOPLASTIN TIME 57.0 seconds 22.5-36.0 H (BEAKER) (test code = 760) [id number] 10:17:00 Test Item Value Reference Range Interpretation Comments PARTIAL THROMBOPLASTIN TIME 134.5 seconds 22.5-36.0 H (BEAKER) (test code = 760) POCT-GLUCOSE [id number] 07:43:00 Test Item Value Reference Range Interpretation Comments POC-GLUCOSE METER 107 mg/dL 70-110 TESTED AT [place] [address] [facility] (test code = [facility] Humberto [facility] 1538) [address] BASIC METABOLIC [id number] 06:46:00 Test Item Value Reference Range Interpretation [...] PATIEN TS. RAD, CHEST, 1 VIEW, NON [id number] 06:25:00Reason for exam:->Post opShould this be performed [...] Stable surgical changes.Additional findings: None. Signed: Radha Lisaeport Verified Date/Time: 12/30/2018 06:25:51 Reading Location: [address] Neuro Reading Room PROTHROMBIN TIME/[id number] 06:06:00 Test Item Value Reference Range Interpretation [...] = 8.4 GM/DL 13.7-17.5 L 410) HEMATOCRIT ([facility]) (test code = 26.1 % 40.1-51.0 L 411) MEAN CORPUSCULAR VOLUME ([facility]) 99.6 fL 79.0-92.2 H (test code = 753) MEAN CORPUSCULAR HEMOGLOBIN 32.1 pg 25.7-32.2 ([facility]) (test code = 751) MEAN CORPUSCULAR HEMOGLOBIN CONC 32.2 GM/DL 32.3-36.5 L (AKER) (test code = 752) RED CELL DISTRIBUTION WIDTH 15.5 % 11.6-14.4 H ([facility]) (test code = 412) PLATELET COUNT ([facility]) (test 139 K/CU MM 150-450 L code = 756) MEAN PLATELET VOLUME ([facility]) 9.1 fL 9.4-12.4 L (test code = 754) NUCLEATED RED BLOOD CELLS 0 /100 WBC 0-0 ([facility]) (test code = 413) POCT-GLUCOSE [id number] 22:19:00 Test Item Value Reference Range Interpretation Comments POC-GLUCOSE METER 179 mg/dL 70-110 H TESTED AT [place] [address] ([facility]) (test code = FOSTER Paul [facility] 1538) [address] POCT-GLUCOSE [id number] 17:39:00 Test Item Value Reference Range Interpretation Comments POC-GLUCOSE METER 181 mg/dL 70-110 H TESTED AT [place] [address] ([facility]) (test code = FOSTER Paul [facility] 1538) [address] POCT-GLUCOSE [id number] 13:14:00 Test Item Value Reference Range Interpretation Comments POC-GLUCOSE METER 102 mg/dL 70-110 TESTED AT [place] [address] ([facility]) (test code = FOSTER Paul [facility] 1538) [address] RAD, CHEST, 1 VIEW, NON [id number] 08:56:00Reason for exam:->Post opShould this be performed [...] Bloom Verified Date/Time: 12/29/2018 08:56:32 Reading Location: [facility] Radiology Reading Room Electronically signed by: EDENILSON BLOOM M.D.on 12/29/2018 08:56 AMPOCT-GLUCOSE [id number] 07:53:00 Test Item Value Reference Range Interpretation Comments POC-GLUCOSE METER 135 mg/dL 70-110 H TESTED AT [facility] 6720 (BEAKER) (test code = FOSTER [place] 1538) [address] [id number] 06:45:00 Test Item Value Reference Range Interpretation Comments PARTIAL THROMBOPLASTIN TIME 83.5 seconds 22.5-36.0 H (BEAKER) (test code = 760) While on warfarin.PROTHROMBIN TIME/[id number] 06:44:00 Test Item Value Reference Range Interpretation [...] = 382) CO2 (BEAKER) (test 29 meq/L - code = 355) BLOOD UREA NITROGEN 31 [...] WBC 0-0 (BEAKER) (test code = 413) [id number] 00:01:00 Test Item Value Reference Range Interpretation Comments PARTIAL THROMBOPLASTIN TIME 78.5 seconds 22.5-36.0 H (BEAKER) (test code = 760) POCT-GLUCOSE [id number] 21:26:00 Test Item Value Reference Range Interpretation Comments POC-GLUCOSE METER 139 mg/dL 70-110 H TESTED AT [facility] 6720 (BEAKER) (test code = FOSTER L[place] 1538) [address] POCT-GLUCOSE [id number] 17:58:00 Test Item Value Reference Range Interpretation Comments POC-GLUCOSE METER 146 mg/dL 70-110 H TESTED AT [facility] 6720 [facility] (test code = FOSTER [place] 1538) [address] [id number] 17:16:00 Test Item Value Reference Range Interpretation Comments PARTIAL THROMBOPLASTIN TIME 34.5 seconds 22.5-36.0 (BEAKER) (test code = 760) Prior to initiating heparinPOCT-GLUCOSE [id number] 12:54:00 Test Item Value Reference Range Interpretation Comments POC-GLUCOSE METER 133 mg/dL 70-110 H TESTED AT [facility] 6720 ([facility]) (test code = FOSTER [place] 1538) [address] RAD, CHEST, 1 VIEW, NON [id number] 08:06:00Reason for exam:->Post opShould this be performed at the bedside?->YesFINAL REPORT Chest one view. Clinical history: Post op Comparison: 12/27/2018 Discussion: A frontal chest is provided. Cardiomediastinal contours are unchanged. Lines and tubesare in stable position. Unchanged right-sided pleural-parenchymal opacities. Left lung is grossly clear. Vessels do not appear engorged. No pneumothorax. Signed: Dionicio Chery Verified Date/Time: 12/28/2018 08:06:07 Reading Location: [address] Neuro Reading Room BASIC METABOLIC [id number] 06:52:00 Test Item Value Reference Range Interpretation [...] NOT APPLICABLE FOR DIALYSIS PATIEN TS. PROTHROMBIN [id number] 06:31:00 Test Item Value Reference Range Interpretation [...] RED BLOOD CELLS 0 /100 WBC 0-0 ([facility]) (test code = 413) POCT-GLUCOSE [id number] 21:41:00 Test Item Value Reference Range Interpretation Comments POC-GLUCOSE METER 163 mg/dL 70-110 H TESTED AT [facility] 6720 [facility] (test code = FOSTER Paul [place] 1538) [address] POCT-GLUCOSE [id number] 17:23:00 Test Item Value Reference Range Interpretation Comments POC-GLUCOSE METER 119 mg/dL 70-110 H TESTED AT [facility] 6720 ([facility]) (test code = FOSTER Paul [facility] 1538) [address] RAD, CHEST, 1 VIEW, NON [id number] 14:49:00Reason for exam:->Post opShould this be performed [...] cavoatrial junction. No othersignificant change. Signed: Kyle Evans MDReport Verified Date/Time: 12/27/2018 14:49:48 Reading Location: [address] Ortho Consult Reading Room ANG, NON-TUNNELED CATH >5 Y.O. [id number] 14:17:00Reason for exam:->Central line placement, poor access, [...] guide wire was advanced centrally. A 7 Prydeinig 20 cm triple lumen catheter was advanced [...] Sykes Verified Date/Time: 12/27/2018 14:17:02 Reading Location: [place] [address] Angio Body Reading Room [id number] 13:44:00 Test Item Value Reference Range Interpretation Comments PARTIAL THROMBOPLASTIN TIME 44.3 seconds 22.5-36.0 H ([facility]) (test code = 760) Prior to initiating heparinPOCT-GLUCOSE [id number] 13:27:00 Test Item Value Reference Range Interpretation Comments POC-GLUCOSE METER 127 mg/dL 70-110 H TESTED AT [place] [address] ([facility]) (test code = [facility] 1538) [address] POCT-GLUCOSE [id number] 08:58:00 Test Item Value Reference Range Interpretation Comments POC-GLUCOSE METER 79 mg/dL 70-110 TESTED AT [place] [id number] ([facility]) (test code = [facility] [address] 1538) BASIC METABOLIC [id number] 07:09:00 Test Item Value Reference Range Interpretation [...] NOT APPLICABLE FOR DIALYSIS PATIEN TS. PROTHROMBIN [id number] 06:52:00 Test Item Value Reference Range Interpretation [...] CORPUSCULAR HEMOGLOBIN CONC 30.7 GM/DL 32.3-36.5 L ([facility]) (test code = 752) RED CELL DISTRIBUTION WIDTH 15.0 % 11.6-14.4 H ([facility]) (test code = 412) PLATELET COUNT ([facility]) (test code 90 K/CU MM 150-450 L = 756) MEAN PLATELET VOLUME ([facility]) 9.1 fL 9.4-12.4 L (test code = 754) NUCLEATED RED BLOOD CELLS ([facility]) 0 /100 WBC 0-0 (test code = 413) POCT-GLUCOSE [id number] 23:54:00 Test Item Value Reference Range Interpretation Comments POC-GLUCOSE METER 73 mg/dL 70-110 TESTED AT [place] [address] ([facility]) (test code = [facility] Humberto [facility] [address] 1538) POCT-GLUCOSE [id number] 16:02:00 Test Item Value Reference Range Interpretation Comments POC-GLUCOSE METER 108 mg/dL 70-110 TESTED AT [place] [address] ([facility]) (test code = [facility] 1538) [address] POCT-GLUCOSE [id number] 15:24:00 Test Item Value Reference Range Interpretation Comments POC-GLUCOSE METER 74 mg/dL 70-110 TESTED AT [place] [address] ([facility]) (test code = [facility] [employer] [facility] [address] 1538) POCT-GLUCOSE [id number] 10:29:00 Test Item Value Reference Range Interpretation Comments POC-GLUCOSE METER 88 mg/dL 70-110 TESTED AT [place] [address] ([facility]) (test code = [facility] [employer] [facility] [address] 1538) RAD, CHEST, 1 VIEW, NON [id number] 07:33:00Reason for exam:->Post opShould this be performed [...] MDReport Verified Date/Time: 12/26/2018 07:33:38 Reading Location: [facility] Radiology Reading Room BASIC METABOLIC [id number] 06:42:00 Test Item Value Reference Range Interpretation [...] CORPUSCULAR HEMOGLOBIN CONC 32.0 GM/DL 32.3-36.5 L ([facility]) (test code = 752) RED CELL DISTRIBUTION WIDTH 15.0 % 11.6-14.4 H (AKER) (test code = 412) PLATELET COUNT ([facility]) (test code 84 K/CU MM 150-450 L = 756) MEAN PLATELET VOLUME (AKER) 8.6 fL 9.4-12.4 L (test code = 754) NUCLEATED RED BLOOD CELLS (AKER) 1 /100 WBC 0-0 H (test code = 413) PROTHROMBIN [id number] 05:44:00 Test Item Value Reference Range Interpretation Comments PROTIME ([facility]) (test code = 24.4 seconds 11.7-14.7 H 759) INR ([facility]) (test code = 370) 2.2 <=5.9 RECOMMENDED COUMADIN/WARFARIN INR THERAPY RANGESSTANDARD DOSE: 2.0 - 3.0 Includes: PROPHYLAXIS forvenous thrombosis, systemic embolization; TREATMENT for venous thrombosis and/or pulmonary embolus.HIGH RISK: Target INR is 2.5-3.5 for patients with mechanical heart valves.POCT-GLUCOSE [id number] 00:06:00 Test Item Value Reference Range Interpretation Comments POC-GLUCOSE METER 88 mg/dL 70-110 TESTED AT [place] [address] ([facility]) (test code = [facility] [address] 1538) POCT-GLUCOSE [id number] 19:06:00 Test Item Value Reference Range Interpretation Comments POC-GLUCOSE METER 121 mg/dL 70-110 H TESTED AT [place] [address] ([facility]) (test code = [facility] 1538) [address] PROTHROMBIN [id number] 16:10:00 Test Item Value Reference Range Interpretation Comments PROTIME ([facility]) (test code = 30.1 seconds 11.7-14.7 H 759) INR ([facility]) (test code = 370) 2.9 <=5.9 RECOMMENDED COUMADIN/WARFARIN INR THERAPY RANGESSTANDARD DOSE: 2.0 - 3.0 Includes: PROPHYLAXIS forvenous thrombosis, systemic embolization; TREATMENT for venous thrombosis and/or pulmonary embolus.HIGH RISK: Target INR is 2.5-3.5 for patients with mechanical heart valves.BASIC METABOLIC [id number] 16:10:00 Test Item Value Reference Range Interpretation [...] S NOT APPLICABLE FOR DIALYSIS PATIEN TS. [id number] 16:09:00 Test Item Value Reference Range Interpretation [...] 0-0 H (test code = 413) POCT-GLUCOSE [id number] 08:03:00 Test Item Value Reference Range Interpretation Comments POC-GLUCOSE METER 89 mg/dL 70-110 TESTED AT [facility] 6720 ([facility]) (test code = [place] [address] 1538) RAD, CHEST, 1 VIEW, NON [id number] 07:46:00Reason for exam:->Post opShould this be performed at the bedside?->YesFINAL REPORT Chest one view. Clinical history: Post op Comparison: 12/24/2018 Discussion: A frontal chest is provided. Cardiomediastinal contours are unchanged. Stable appearance of pleural-parenchymal opacity at the right mid to lower lung. There is a tiny right apical pneumothorax, unchanged. Probable trace left effusion. Signed: Dionicio Chery Verified Date/Time: 07:46:01 Reading Location: [facility] Reading Room RAD, ABDOMEN/KUB, 1 VIEW [id number] 07:25:00Reason for exam:->abdominal distentionShould this be performed [...] Chery Verified Date/Time: 12/25/2018 07:25:40 Reading Location: [facility] Radiology Reading Room POCT-GLUCOSE [id number] 22:06:00 Test Item Value Reference Range Interpretation Comments POC-GLUCOSE METER 102 mg/dL 70-110 TESTED AT [place] [address] ([facility]) (test code = FOSTER Paul [facility] 1538) [address] POCT-GLUCOSE [id number] 18:44:00 Test Item Value Reference Range Interpretation Comments POC-GLUCOSE METER 100 mg/dL 70-110 TESTED AT [place] [address] ([facility]) (test code = FOSTER Paul [facility] 1538) [address] POCT-GLUCOSE [id number] 14:54:00 Test Item Value Reference Range Interpretation Comments POC-GLUCOSE METER 103 mg/dL 70-110 TESTED AT [place] [address] ([facility]) (test code = FOSTER Paul [facility] 1538) [address] [id number] 08:07:00 Test Item Value Reference Range Interpretation Comments FERRITIN ([facility]) (test code = 2044 ng/mL 5-275 H 361) POCT-GLUCOSE [id number] 07:57:00 Test Item Value Reference Range Interpretation Comments POC-GLUCOSE METER 76 mg/dL 70-110 TESTED AT [place] [address] ([facility]) (test code = [facility] Humberto [facility] [address] 1538) RAD, CHEST, 1 VIEW, NON [id number] 07:57:00Reason for exam:->Post opShould this be performed at the bedside?->YesFINAL REPORT Comparison: 12/23/2018 TECHNIQUE: Single view of the chest FINDINGS: Right-sided airspace disease and pleural effusion again noted, stable. There is a tiny right apical pneumothorax. Left retrocardiac opacity again noted. Lungs otherwise clear. Cardiac silhouette is enlarged. Postsurgical changes in the mediastinum noted. Signed: Kyle Evans Verified Date/Time: 12/24/2018 07:57:06 Reading Location: [facility] Radiology Reading Room CBC (HEMOGRAM ONLY) [...] H (test code = 413) BASIC METABOLIC [id number] 07:14:00 Test Item Value Reference Range Interpretation [...] S NOT APPLICABLE FOR DIALYSIS PATIEN TS. [id number] 07:08:00 Test Item Value Reference Range Interpretation [...] % 20-55 (test code = 2590) PROTHROMBIN TIME/[id number] 07:05:00 Test Item Value Reference Range Interpretation Comments PROTIME (BEAKER) (test code = 38.7 seconds 11.7-14.7 H 759) INR (BEAKER) (test code = 370) 3.9 <=5.9 RECOMMENDED COUMADIN/WARFARIN INR THERAPY RANGESSTANDARD DOSE: 2.0 - 3.0 Includes: PROPHYLAXIS forvenous thrombosis, systemic embolization; TREATMENT for venous thrombosis and/or pulmonary embolus.HIGH RISK: Target INR is 2.5-3.5 for patients with mechanical heart valves.POCT-GLUCOSE [id number] 00:26:00 Test Item Value Reference Range Interpretation Comments POC-GLUCOSE METER 86 mg/dL 70-110 TESTED AT [place] [address] ([employer]) (test code = FOSTER Paul [facility] [address] 1538) POCT-GLUCOSE [id number] 00:26:00 Test Item Value Reference Range Interpretation Comments POC-GLUCOSE METER 137 mg/dL 70-110 H TESTED AT [place] [address] ([facility]) (test code = [facility] Humberto [facility] 1538) [address] POCT-GLUCOSE [id number] 16:07:00 Test Item Value Reference Range Interpretation Comments POC-GLUCOSE METER 72 mg/dL 70-110 TESTED AT [place] [address] ([facility]) (test code = [facility] Humberto [facility] [address] 1538) POCT-GLUCOSE [id number] 16:07:00 Test Item Value Reference Range Interpretation Comments POC-GLUCOSE METER 61 mg/dL 70-110 L TESTED AT [facility] 6720 (BEAKER) (test code = FOSTER Paul [facility] [address] 1538) POCT-GLUCOSE [id number] 11:27:00 Test Item Value Reference Range Interpretation Comments POC-GLUCOSE METER 82 mg/dL 70-110 TESTED AT [facility] 6720 (BEAKER) (test code = FOSTER Paul [facility] [address] 1538) POCT-GLUCOSE [id number] 10:32:00 Test Item Value Reference Range Interpretation Comments POC-GLUCOSE METER 43 mg/dL 70-110 L TESTED AT [facility] 6720 (BEAKER) (test code = FOSTER Paul [facility] [address] 1538) BASIC METABOLIC [id number] 07:28:00 Test Item Value Reference Range Interpretation [...] S NOT APPLICABLE FOR DIALYSIS PATIEN TS. [id number] 07:24:00 Test Item Value Reference Range Interpretation Comments MAGNESIUM (BEAKER) 2.0 mg/dL 1.6-2.6 Specimen slightly (test code = 627) hemolyzed [id number] 07:24:00 Test Item Value Reference Range Interpretation Comments PHOSPHORUS (BEAKER) 4.4 mg/dL 2.3-4.7 Specimen slightly (test code = 604) hemolyzed PROTHROMBIN TIME/[id number] 07:20:00 Test Item Value Reference Range Interpretation [...] = 413) RAD, CHEST, 1 VIEW, NON [id number] 04:22:00Reason for exam:->Post opShould this be performed [...] MDReport Verified Date/Time: 12/23/2018 04:22:43 Reading Location: [facility] C013Y CT Body Reading Room POCT-GLUCOSE [id number] 03:01:00 Test Item Value Reference Range Interpretation Comments POC-GLUCOSE METER 85 mg/dL 70-110 TESTED AT [facility] 6720 ([facility]) (test code = [facility] [address] 1538) BASIC METABOLIC [id number] 18:52:00 Test Item Value Reference Range Interpretation [...] H (BEAKER) (test code = 413) ANAEROBIC [id number] 17:00:00 Test Item Value Reference Range Interpretation Comments CULTURE (BEAKER) (test No anaerobes isolated code = 1095) RAD, CHEST, 1 VIEW, NON [id number] 07:44:00Reason for exam:->Post opShould this be performed [...] Arteaga Verified Date/Time: 12/22/2018 07:44:12 Reading Location: [facility] Radiology Reading Room PROTHROMBIN [id number] 04:31:00 Test Item Value Reference Range Interpretation Comments PROTIME ([facility] (test code = 63.0 seconds 11.7-14.7 H 759) INR ([facility]) (test code = 370) 7.6 <=5.9 RECOMMENDED COUMADIN/WARFARIN INR THERAPY RANGESSTANDARD DOSE: 2.0 - 3.0 Includes: PROPHYLAXIS forvenous thrombosis, systemic embolization; TREATMENT for venous thrombosis and/or pulmonary embolus.HIGH RISK: Target INR is 2.5-3.5 for patients with mechanical heart valves.While on warfarin.POCT-GLUCOSE METER 2018-12-21 22:29:00 Test Item Value Reference Range Interpretation Comments POC-GLUCOSE METER 141 mg/dL 70-110 H TESTED AT [facility] 6720 ([facility]) (test code = FOSTER Paul [facility] 1538) [address] POCT-GLUCOSE [id number] 13:22:00 Test Item Value Reference Range Interpretation Comments POC-GLUCOSE METER 100 mg/dL 70-110 TESTED AT [facility] 6720 ([facility]) (test code = FOSTER Paul [facility] 1538) [address] RAD, CHEST, 1 VIEW, NON [id number] 08:01:00Reason for exam:->Post opShould this be performed [...] None. Signed: Radha Lisa MDReport Verified Date/Time: 12/21/2018 08:01:46 Reading Location: [address] Neuro Reading Room PROTHROMBIN TIME/[id number] 05:30:00 Test Item Value Reference Range Interpretation Comments PROTIME [facility] (test code = 39.1 seconds 11.7-14.7 H [...] POC-GLUCOSE METER 98 mg/dL 70-110 TESTED AT [place] [address] ([facility]) (test code = FOSTER Paul [facility] [address] 1538) POCT-GLUCOSE [id number] 17:40:00 Test Item Value Reference Range Interpretation Comments POC-GLUCOSE METER 91 mg/dL 70-110 TESTED AT [place] [address] ([facility]) (test code = [facility] [address] 1538) POCT-GLUCOSE [id number] 13:13:00 Test Item Value Reference Range Interpretation Comments POC-GLUCOSE METER 73 mg/dL 70-110 TESTED AT [place] [address] ([facility]) (test code = [facility] [address] 1538) SURGICALLY OBTAINED CULTURE + GRAM [id number] 08:41:00 Test Item Value Reference Range Interpretation Comments CULTURE ([facility]) (test No growth code = 1095) GRAM STAIN RESULT No White blood cells (BEAKER) (test code = seen 1123) GRAM STAIN RESULT No organisms seen ([facility]) (test code = 36824) RAD, CHEST, 1 VIEW, NON [id number] 08:20:00Reason for exam:->Post opShould this be performed [...] Stable surgical changes.Additional findings: None. Signed: Radha Lisaeport Verified Date/Time: 12/20/2018 08:20:58 Reading Location: [facility] C013V Neuro Reading Room BASIC METABOLIC [id number] 08:09:00 Test Item Value Reference Range Interpretation [...] S NOT APPLICABLE FOR DIALYSIS PATIEN TS. [id number] 08:00:00 Test Item Value Reference Range Interpretation Comments PHOSPHORUS (BEAKER) (test code = 4.5 mg/dL 2.3-4.7 604) CALCIUM, [id number] 07:20:00 Test Item Value Reference Range Interpretation Comments CALCIUM IONIZED (BEAKER) (test 1.04 mmol/L 1.12-1.27 L code = 698) PH, BLOOD (BEAKER) (test code = 7.35 1810) PROTHROMBIN [id number] 07:04:00 Test Item Value Reference Range Interpretation [...] 0-0 (BEAKER) (test code = 413) POCT-GLUCOSE [id number] 22:00:00 Test Item Value Reference Range Interpretation Comments POC-GLUCOSE METER 188 mg/dL 70-110 H TESTED AT [place] [address] (BEAKER) (test code = [facility] 1538) [address] TISSUE [id number] 18:15:00Surgical Pathology Report Case: [id number] Authorizing Provider: Moiz Vargas, Collected: 12/17/2018 0950 Ordering Location: [facility] Received: 12/17/2018 1129 PERIOPERATIVE SERVICES Pathologist: Kwan Perla MD Specimen: Pleural, Right, RIGHT PLEURAL PEEL PLEURA, RIGHT, DECORTICATION- MILD CHRONIC INFLAMMATION AND GRANULATION TISSUE- ORGANIZING BLOOD CLOTS- NO MALIGNANT CELLS IDENTIFIED Signing Pathologist Direct Phone Line: [phone] signed by Kwan Perla MD on 12/19/2018 at 6:15 PMCorrelation with microbiology cultures is recommended.62485Nyrxhmj effusion and other conditions classified elsewhereRight pleural peelThe specimen is received in a formalin-filled container labeled with the patient's information and labeled "right pleural peel" and consists of multiple fragments of porter-red, dusky, firm tissue measuring 6 x 5 x 0.4 cm in aggregate. Glaze Mixer sections are submitted in A1-A3. CG/ew Performed.POCT-GLUCOSE [id number] 17:11:00 Test Item Value Reference Range Interpretation Comments POC-GLUCOSE METER 126 mg/dL 70-110 H TESTED AT [place] [address] ([facility]) (test code = MARIA GNJ Humberto [facility] 1538) [address] POCT-GLUCOSE [id number] 12:57:00 Test Item Value Reference Range Interpretation Comments POC-GLUCOSE METER 143 mg/dL 70-110 H TESTED AT [place] [address] ([facility]) (test code = [facility] 1538) [address] POCT-GLUCOSE [id number] 07:27:00 Test Item Value Reference Range Interpretation Comments POC-GLUCOSE METER 141 mg/dL 70-110 H TESTED AT [place] [address] ([facility]) (test code = [facility] 1538) [address] CALCIUM, [id number] 06:29:00 Test Item Value Reference Range Interpretation Comments CALCIUM IONIZED ([facility]) (test 1.00 mmol/L 1.12-1.27 L code = 698) PH, BLOOD ([facility]) (test code = 7.45 3980) RAD, CHEST, 1 VIEW, NON [id number] 04:54:00Reason for exam:->Post opShould this be performed [...] MDReport Verified Date/Time: 2018 04:54:49 Reading Location: [facility] C013Y CT Body Reading Room BASIC METABOLIC [id number] 04:19:00 Test Item Value Reference Range Interpretation [...] S NOT APPLICABLE FOR DIALYSIS PATIEN TS. [id number] 04:16:00 Test Item Value Reference Range Interpretation Comments PHOSPHORUS (BEAKER) (test code = 3.4 mg/dL 2.3-4.7 604) PROTHROMBIN [id number] 04:06:00 Test Item Value Reference Range Interpretation [...] 0-0 (BEAKER) (test code = 413) POCT-GLUCOSE [id number] 22:11:00 Test Item Value Reference Range Interpretation Comments POC-GLUCOSE METER 149 mg/dL 70-110 H TESTED AT [place] [address] ([facility]) (test code = [facility] 1538) [address] POCT-GLUCOSE [id number] 17:52:00 Test Item Value Reference Range Interpretation Comments POC-GLUCOSE METER 122 mg/dL 70-110 H TESTED AT [place] [address] ([facility]) (test code = [facility] 1538) [address] POCT-GLUCOSE [id number] 14:26:00 Test Item Value Reference Range Interpretation Comments POC-GLUCOSE METER 98 mg/dL 70-110 TESTED AT [place] [address] ([facility]) (test code = [facility] [address] 1538) HEMOGLOBIN AND [id number] 12:47:00 Test Item Value Reference Range Interpretation Comments HEMOGLOBIN (AKER) (test code = 9.2 GM/DL 13.7-17.5 L 410) HEMATOCRIT ([facility]) (test code = 28.3 % 40.1-51.0 L 411) POCT-GLUCOSE [id number] 09:38:00 Test Item Value Reference Range Interpretation Comments POC-GLUCOSE METER 73 mg/dL 70-110 TESTED AT [place] [address] ([facility]) (test code = [facility] [address] 1538) PROTEIN ELECTROPHORESIS, [id number] 09:21:00 Test Item Value Reference Range Interpretation [...] of chronic inflammation. No monoclonal bands detected. [id number] Amanda De Jesus MD (BEAKER) (test code = (electronic signature) 7458) PROTEIN TOTAL SERUM, 7.5 gm/dL 6.0-8.3 SPEP (BEAKER) (test code = 2660) RAD, CHEST, 1 VIEW, NON [id number] 06:47:00Reason for exam:->Post opShould this be performed [...] chest wall and lower neck. Signed: [facility] Verified Date/Time: 12/18/2018 06:47:21 Reading Location: [facility] C013Y CT Body Reading Room [id number] 06:20:00 Test Item Value Reference Range Interpretation Comments MAGNESIUM (BEAKER) (test code = 2.2 mg/dL 1.6-2.6 627) CALCIUM, [id number] 06:00:00 Test Item Value Reference Range Interpretation Comments CALCIUM IONIZED (BEAKER) (test 1.09 mmol/L 1.12-1.27 L code = 698) PH, BLOOD (BEAKER) (test code = 7.34 1810) BASIC METABOLIC [id number] 05:07:00 Test Item Value Reference Range Interpretation [...] S NOT APPLICABLE FOR DIALYSIS PATIEN TS. [id number] 04:54:00 Test Item Value Reference Range Interpretation Comments PHOSPHORUS (BEAKER) (test code = 6.3 mg/dL 2.3-4.7 H 604) HEPATIC FUNCTION [id number] 04:54:00 Test Item Value Reference Range Interpretation [...] (test code = 23 U/L 6-55 347) [id number] 04:51:00 Test Item Value Reference Range Interpretation Comments PARTIAL THROMBOPLASTIN TIME 38.6 seconds 22.5-36.0 H (BEAKER) (test code = 760) PROTHROMBIN [id number] 04:50:00 Test Item Value Reference Range Interpretation Comments PROTIME (BEAKER) (test code = 16.0 seconds 11.7-14.7 H 759) INR (BEAKER) (test code = 370) 1.3 <=5.9 RECOMMENDED COUMADIN/WARFARIN INR THERAPY RANGESSTANDARD DOSE: 2.0 - 3.0 Includes: PROPHYLAXIS forvenous thrombosis, systemic embolization; TREATMENT for venous thrombosis and/or pulmonary embolus.HIGH RISK: Target INR is 2.5-3.5 for patients with mechanical heart valves.[id number] 04:50:00 Test Item Value Reference Range Interpretation Comments FIBRINOGEN LEVEL (BEAKER) (test 494 mg/dl 225-434 H code = 658) PLATELET [id number] 04:38:00 Test Item Value Reference Range Interpretation [...] WBC 0-0 (BEAKER) (test code = 413) [id number] 18:48:00 Test Item Value Reference Range Interpretation Comments MAGNESIUM (BEAKER) (test code = 2.4 mg/dL 1.6-2.6 627) POCT-GLUCOSE [id number] 18:42:00 Test Item Value Reference Range Interpretation Comments POC-GLUCOSE METER 121 mg/dL 70-110 H TESTED AT [facility] 6720 (BEAKER) (test code = [place] 1538) [address] HEMOGLOBIN AND [id number] 18:37:00 Test Item Value Reference Range Interpretation Comments HEMOGLOBIN (BEAKER) (test code = 10.0 GM/DL 13.7-17.5 L 410) HEMATOCRIT (BEAKER) (test code = 31.3 % 40.1-51.0 L 411) RAD, CHEST, 1 VIEW, NON [id number] 13:28:00Reason for exam:->post opShould this be performed [...] MDReport Verified Date/Time: 12/17/2018 13:28:23 Reading Location: [facility] Reading Room BASI METABOLIC [id number] 13:03:00 Test Item Value Reference Range Interpretation [...] S NOT APPLICABLE FOR DIALYSIS PATIEN TS. [id number] 12:53:00 Test Item Value Reference Range Interpretation Comments PHOSPHORUS (BEAKER) (test code = 4.3 mg/dL 2.3-4.7 604) [id number] 12:53:00 Test Item Value Reference Range Interpretation Comments MAGNESIUM (BEAKER) (test code = 1.5 mg/dL 1.6-2.6 L 627) LACTIC ACID, [id number] 12:50:00 Test Item Value Reference Range Interpretation Comments LACTATE BLOOD ARTERIAL (2) 0.9 mmol/L 0.5-2.2 (BEAKER) (test code = 2874) CBC W/PLT COUNT & AUTO [id number] 12:47:00 Test Item Value Reference Range Interpretation [...] PERCENT (BEAKER) (test code = 2801) CALCIUM, [id number] 12:26:00 Test Item Value Reference Range Interpretation Comments CALCIUM IONIZED (BEAKER) (test 1.07 mmol/L 1.12-1.27 L code = 698) PH, BLOOD (BEAKER) (test code = 7.38 1810) BLOOD GAS, [id number] 12:26:00 Test Item Value Reference Range Interpretation [...] (test code = 1819) 40.0 % CALCIUM, [id number] 10:25:00 Test Item Value Reference Range Interpretation Comments CALCIUM IONIZED (BEAKER) (test 1.09 mmol/L 1.12-1.27 L code = 698) PH, BLOOD (BEAKER) (test code = 7.45 1810) BLOOD GAS, [id number] 10:22:00 Test Item Value Reference Range Interpretation [...] code = 1819) 96.0 % SODIUM NA-STAT [id number] 10:22:00 Test Item Value Reference Range Interpretation Comments SODIUM (BEAKER) (test code = 381) 133 meq/L 135-148 L GLUCOSE-STAT [id number] 10:22:00 Test Item Value Reference Range Interpretation Comments GLUCOSE RANDOM (BEAKER) (test code 116 mg/dL 70-110 H = 652) HGB/HCT (H&H) - STAT [id number] 10:22:00 Test Item Value Reference Range Interpretation Comments HEMOGLOBIN (BEAKER) (test code = 8.9 g/dL 13.0-16.8 L 410) HEMATOCRIT (BEAKER) (test code = 26.0 % 40.0-50.0 L 411) POTASSIUM-STAT [id number] 10:20:00 Test Item Value Reference Range Interpretation Comments POTASSIUM (BEAKER) (test code = 4.0 meq/L 3.6-5.5 379) HEMOGLOBIN [id number] 09:33:00 Test Item Value Reference Range Interpretation Comments HEMOGLOBIN A1C (BEAKER) (test code = 5.9 % 4.3-6.1 368) BLOOD GAS, [id number] 09:27:00 Test Item Value Reference Range Interpretation [...] code = 1819) 100.0 % SODIUM NA-STAT [id number] 09:27:00 Test Item Value Reference Range Interpretation Comments SODIUM (BEAKER) (test code = 381) 133 meq/L 135-148 L HGB/HCT (H&H) - STAT [id number] 09:27:00 Test Item Value Reference Range Interpretation Comments HEMOGLOBIN (BEAKER) (test code = 9.4 g/dL 13.0-16.8 L 410) HEMATOCRIT (BEAKER) (test code = 28.0 % 40.0-50.0 L 411) GLUCOSE-STAT [id number] 09:26:00 Test Item Value Reference Range Interpretation Comments GLUCOSE RANDOM (BEAKER) (test code = 97 mg/dL 70-110 652) POTASSIUM-STAT [id number] 09:26:00 Test Item Value Reference Range Interpretation Comments POTASSIUM (BEAKER) (test code = 3.9 meq/L 3.6-5.5 379) CALCIUM, [id number] 09:26:00 Test Item Value Reference Range Interpretation Comments CALCIUM IONIZED (BEAKER) (test 1.17 mmol/L 1.12-1.27 code = 698) PH, BLOOD (BEAKER) (test code = 7.44 1810) BLOOD GAS, [id number] 08:32:00 Test Item Value Reference Range Interpretation [...] code = 1819) 96.0 % SODIUM NA-STAT [id number] 08:32:00 Test Item Value Reference Range Interpretation Comments SODIUM (BEAKER) (test code = 381) 133 meq/L 135-148 L GLUCOSE-STAT [id number] 08:32:00 Test Item Value Reference Range Interpretation Comments GLUCOSE RANDOM (BEAKER) (test code 113 mg/dL 70-110 H = 652) HGB/HCT (H&H) - STAT [id number] 08:32:00 Test Item Value Reference Range Interpretation Comments HEMOGLOBIN (BEAKER) (test code = 9.9 g/dL 13.0-16.8 L 410) HEMATOCRIT (BEAKER) (test code = 29.0 % 40.0-50.0 L 411) CALCIUM, [id number] 08:31:00 Test Item Value Reference Range Interpretation Comments CALCIUM IONIZED (BEAKER) (test 1.05 mmol/L 1.12-1.27 L code = 698) PH, BLOOD (BEAKER) (test code = 7.49 1810) POTASSIUM-STAT [id number] 08:29:00 Test Item Value Reference Range Interpretation Comments POTASSIUM (BEAKER) (test code = 3.6 meq/L 3.6-5.5 379) POCT-GLUCOSE [id number] 06:20:00 Test Item Value Reference Range Interpretation Comments POC-GLUCOSE METER 99 mg/dL 70-110 TESTED AT [place] [address] (BEAKER) (test code = FOSTER Paul [facility] [address] 1538) [id number] 05:05:00 Test Item Value Reference Range Interpretation Comments PARTIAL THROMBOPLASTIN TIME 75.6 seconds 22.5-36.0 H (JARROD) (test code = 760) LIPID [id number] 05:04:00 Test Item Value Reference Range Interpretation Comments TRIGLYCERIDES ([facility]) (test code = 53 mg/dL 540) CHOLESTEROL ([facility]) (test code = 122 mg/dL 631) HDL CHOLESTEROL ([facility]) (test code 58 mg/dL = 976) LDL CHOLESTEROL CALCULATED ([facility]) 53 mg/dL (test code = 633) Triglyceride Reference Range: Low Risk <150 Borderline 150-199 High Risk 200-499 Very High Risk >=500Cholesterol Reference Range: Low Risk <200 Borderline 200-239 High Risk >240HDL Cholesterol Reference Range: Low Risk >=60 High Risk <40LDL Cholesterol Reference Range: Optimal <100 Near Optimal 100-129 Borderline 130-159 High 160-189 Very High >=190PROTHROMBIN [id number] 05:03:00 Test Item Value Reference Range Interpretation Comments PROTIME ([facility]) (test code = 15.4 seconds 11.7-14.7 H 759) INR ([facility]) (test code = 370) 1.2 <=5.9 RECOMMENDED COUMADIN/WARFARIN INR THERAPY RANGESSTANDARD DOSE: 2.0 - 3.0 Includes: PROPHYLAXIS forvenous thrombosis, systemic embolization; TREATMENT for venous thrombosis and/or pulmonary embolus.HIGH RISK: Target INR is 2.5-3.5 for patients with mechanical heart valves.POCT-GLUCOSE [id number] 21:17:00 Test Item Value Reference Range Interpretation Comments POC-GLUCOSE METER 223 mg/dL 70-110 H TESTED AT [facility] 6720 ([facility]) (test code = [facility] 1538) [address] COMPREHENSIVE METABOLIC [id number] 18:57:00 Test Item Value Reference Range Interpretation Comments TOTAL PROTEIN 7.8 gm/dL 6.0-8.3 ([facility]) (test code = 770) ALBUMIN ([facility]) 3.1 g/dL 3.5-5.0 L (test code = [...] S NOT APPLICABLE FOR DIALYSIS PATIEN TS. [id number] 18:46:00 Test Item Value Reference Range Interpretation Comments MAGNESIUM (BEAKER) (test code = 1.8 mg/dL 1.6-2.6 627) CBC W/PLT COUNT & AUTO [id number] 18:10:00 Test Item Value Reference Range Interpretation [...] PERCENT (BEAKER) (test code = 2801) POCT-GLUCOSE [id number] 17:34:00 Test Item Value Reference Range Interpretation Comments POC-GLUCOSE METER 169 mg/dL 70-110 H TESTED AT [facility] 6720 (BEAKER) (test code = [place] 1538) [address] HEPARIN [id number] 13:40:00 Test Item Value Reference Range Interpretation Comments HEPARIN ANTIBODY (BEAKER) (test code Negative Negative = 646) HEPARIN ANTIBODY OD ([facility]) (test 0.105 <0.400 code = 1733) 4T TOTAL SCORE ([facility]) (test code = 4 8248) Probability of HIT based on scoring system: 6-8 = High probability; 4-5 = intermediate probability;0-3 = low probabilityPOCT-GLUCOSE [id number] 12:51:00 Test Item Value Reference Range Interpretation Comments POC-GLUCOSE METER 66 mg/dL 70-110 L Ayshaied Humberto Yeager MD/TESTED AT ([facility]) (test code = [place] [address] JOSE ANTONIO 1538) [facility] 7703 0 POCT-GLUCOSE [id number] 07:54:00 Test Item Value Reference Range Interpretation Comments POC-GLUCOSE METER 75 mg/dL 70-110 TESTED AT [place] [address] ([facility]) (test code = FOSTER Paul [facility] [address] 1538) [id number] 04:21:00 Test Item Value Reference Range Interpretation Comments PROTIME ([facility]) (test code = 15.4 seconds 11.7-14.7 H 759) INR ([facility]) (test code = 370) 1.2 <=5.9 PARTIAL THROMBOPLASTIN TIME 74.0 seconds 22.5-36.0 H ([facility]) (test code = 760) RECOMMENDED COUMADIN/WARFARIN INR THERAPY RANGESSTANDARD DOSE: 2.0 - 3.0 Includes: PROPHYLAXIS forvenous thrombosis, systemic embolization; TREATMENT for venous thrombosis and/or pulmonary embolus.HIGH RISK: Target INR is 2.5-3.5 for patients with mechanical heart valves.[id number] 04:20:00 Test Item Value Reference Range Interpretation Comments FIBRINOGEN LEVEL ([facility]) (test 525 mg/dl 225-434 H code = 658) POCT-GLUCOSE [id number] 21:25:00 Test Item Value Reference Range Interpretation Comments POC-GLUCOSE METER 129 mg/dL 70-110 H TESTED AT [place] [address] ([facility]) (test code = FOSTER Paul [facility] 1538) [address] [id number] 18:23:00 Test Item Value Reference Range Interpretation Comments PARTIAL THROMBOPLASTIN TIME 72.0 seconds 22.5-36.0 H ([facility]) (test code = 760) POCT-GLUCOSE [id number] 16:20:00 Test Item Value Reference Range Interpretation Comments POC-GLUCOSE METER 142 mg/dL 70-110 H TESTED AT [place] [address] ([facility]) (test code = MARIA GNJ Humberto [facility] 1538) [address] POCT-GLUCOSE [id number] 13:05:00 Test Item Value Reference Range Interpretation Comments POC-GLUCOSE METER 86 mg/dL 70-110 TESTED AT [place] [address] ([facility]) (test code = [facility] [address] 1538) [id number] 11:19:00 Test Item Value Reference Range Interpretation Comments PARTIAL THROMBOPLASTIN TIME 72.3 seconds 22.5-36.0 H ([facility]) (test code = 760) POCT-GLUCOSE [id number] 07:56:00 Test Item Value Reference Range Interpretation Comments POC-GLUCOSE METER 87 mg/dL 70-110 TESTED AT [place] [address] ([facility]) (test code = [facility] [address] 1538) [id number] 03:13:00 Test Item Value Reference Range Interpretation Comments PARTIAL THROMBOPLASTIN TIME 97.1 seconds 22.5-36.0 H ([facility]) (test code = 760) PROTHROMBIN [id number] 03:11:00 Test Item Value Reference Range Interpretation Comments PROTIME ([facility]) (test code = 16.5 seconds 11.7-14.7 H 759) INR ([facility]) (test code = 370) 1.3 <=5.9 RECOMMENDED [...] (BEAKER) (test code = 412) PLATELET COUNT (AKER) (test code 77 K/CU MM 150-450 L = 756) MEAN PLATELET VOLUME (BEAKER) 8.9 fL 9.4-12.4 L (test code = 754) NUCLEATED RED BLOOD CELLS (AKER) 0 /100 WBC 0-0 (test code = 413) POCT-GLUCOSE [id number] 21:26:00 Test Item Value Reference Range Interpretation Comments POC-GLUCOSE METER 121 mg/dL 70-110 H TESTED AT [place] [address] ([facility]) (test code = FOSTER Paul [facility] 1538) [address] [id number] 19:05:00 Test Item Value Reference Range Interpretation Comments PARTIAL THROMBOPLASTIN TIME 64.0 seconds 22.5-36.0 H ([facility]) (test code = 760) POCT-GLUCOSE [id number] 17:24:00 Test Item Value Reference Range Interpretation Comments POC-GLUCOSE METER 131 mg/dL 70-110 H TESTED AT [place] [address] ([facility]) (test code = [place]OSTER Paul [place] 1538) [address] [id number] 13:32:00 Test Item Value Reference Range Interpretation Comments PARTIAL THROMBOPLASTIN TIME 81.4 seconds 22.5-36.0 H ([facility]) (test code = 760) POCT-GLUCOSE [id number] 12:32:00 Test Item Value Reference Range Interpretation Comments POC-GLUCOSE METER 102 mg/dL 70-110 TESTED AT [place] [address] ([facility]) (test code = [place] Paul [place] 1538) [address] POCT-GLUCOSE [id number] 07:07:00 Test Item Value Reference Range Interpretation Comments POC-GLUCOSE METER 113 mg/dL 70-110 H TESTED AT [place] [address] ([facility]) (test code = FOSTER Paul [facility] 1538) [address] [id number] 05:47:00 Test Item Value Reference Range Interpretation Comments PARTIAL THROMBOPLASTIN TIME 91.8 seconds 22.5-36.0 H ([facility]) (test code = 760) POCT-GLUCOSE [id number] 21:27:00 Test Item Value Reference Range Interpretation Comments POC-GLUCOSE METER 90 mg/dL 70-110 TESTED AT [place] [address] ([facility]) (test [facility] = [facility] [address] 1538) POCT-GLUCOSE [id number] 17:46:00 Test Item Value Reference Range Interpretation Comments POC-GLUCOSE METER 175 mg/dL 70-110 H TESTED AT [place] [address] ([facility]) (test code = FOSTER Paul [facility] 1538) [address] POCT-GLUCOSE [id number] 17:30:00 Test Item Value Reference Range Interpretation Comments POC-GLUCOSE METER 84 mg/dL 70-110 TESTED AT [place] [address] ([facility]) (test code = [facility] Humberto [facility] [address] 1538) [id number] 13:20:00 Test Item Value Reference Range Interpretation Comments PARTIAL THROMBOPLASTIN TIME 68.4 seconds 22.5-36.0 H ([facility]) (test code = 760) BASIC METABOLIC [id number] 10:36:00 Test Item Value Reference Range Interpretation [...] NOT APPLICABLE FOR DIALYSIS PATIEN TS. POCT-GLUCOSE [id number] 07:43:00 Test Item Value Reference Range Interpretation Comments POC-GLUCOSE METER 84 mg/dL 70-110 TESTED AT [facility] 6720 ([facility]) (test code = [place] [address] 1538) [id number] 06:52:00 Test Item Value Reference Range Interpretation Comments PARTIAL THROMBOPLASTIN TIME 76.5 seconds 22.5-36.0 H (AKER) (test code = 760) PROTHROMBIN [id number] 06:51:00 Test Item Value Reference Range Interpretation Comments PROTIME (AKER) (test code = 16.5 seconds 11.7-14.7 H 759) INR ([facility]) (test code = 370) 1.3 <=5.9 RECOMMENDED [...] 0-1 PERCENT (BEAKER) (test code = 2801) [id number] 00:11:00 Test Item Value Reference Range Interpretation Comments PARTIAL THROMBOPLASTIN TIME 59.7 seconds 22.5-36.0 H (BEAKER) (test code = 760) POCT-GLUCOSE [id number] 21:33:00 Test Item Value Reference Range Interpretation Comments POC-GLUCOSE METER 113 mg/dL 70-110 H TESTED AT [facility] 67 ([facility]) (test code = [place] 1538) [address] POCT-GLUCOSE [id number] 18:08:00 Test Item Value Reference Range Interpretation Comments POC-GLUCOSE METER 128 mg/dL 70-110 H TESTED AT [facility] 6720 ([facility]) (test code = [place] 1538) [address] [id number] 16:51:00 Test Item Value Reference Range Interpretation Comments PARTIAL THROMBOPLASTIN TIME 71.6 seconds 22.5-36.0 H (BEAKER) (test code = 760) POCT-GLUCOSE [id number] 12:39:00 Test Item Value Reference Range Interpretation Comments POC-GLUCOSE METER 124 mg/dL 70-110 H TESTED AT [facility] 6720 (BEAKER) (test code = [place] Paul [place] 1538) [address] [id number] 09:07:00 Test Item Value Reference Range Interpretation Comments PARTIAL THROMBOPLASTIN TIME 96.6 seconds 22.5-36.0 H (BEAKER) (test code = 760) POCT-GLUCOSE [id number] 07:48:00 Test Item Value Reference Range Interpretation Comments POC-GLUCOSE METER 105 mg/dL 70-110 TESTED AT [facility] 67 (BEAKER) (test code = F[place] Paul [place] 1538) [address] BASIC METABOLIC [id number] 01:54:00 Test Item Value Reference Range Interpretation [...] S NOT APPLICABLE FOR DIALYSIS PATIEN TS. [id number] 01:37:00 Test Item Value Reference Range Interpretation Comments PARTIAL THROMBOPLASTIN TIME 53.4 seconds 22.5-36.0 H (BEAKER) (test code = 760) PROTHROMBIN [id number] 01:36:00 Test Item Value Reference Range Interpretation [...] PERCENT (BEAKER) (test code = 2801) POCT-GLUCOSE [id number] 21:57:00 Test Item Value Reference Range Interpretation Comments POC-GLUCOSE METER 165 mg/dL 70-110 H TESTED AT [place] [address] ([facility]) (test code = [facility] 1538) [id number] 18:46:00 Test Item Value Reference Range Interpretation Comments PARTIAL THROMBOPLASTIN TIME 39.0 seconds 22.5-36.0 H ([facility]) (test code = 760) POCT-GLUCOSE [id number] 17:51:00 Test Item Value Reference Range Interpretation Comments POC-GLUCOSE METER 157 mg/dL 70-110 H TESTED AT [place] [address] ([facility]) (test code = [facility] 1538) [id number] POCT-GLUCOSE [id number] 17:09:00 Test Item Value Reference Range Interpretation Comments POC-GLUCOSE METER 162 mg/dL 70-110 H TESTED AT [place] [address] ([facility]) (test code = [facility] 1538) [address] [id number] 16:07:00 Test Item Value Reference Range Interpretation Comments PARTIAL THROMBOPLASTIN TIME 117.0 seconds 22.5-36.0 H ([facility]) (test code = 760) POCT-GLUCOSE [id number] 13:28:00 Test Item Value Reference Range Interpretation Comments POC-GLUCOSE METER 88 mg/dL 70-110 TESTED AT [place] [address] ([facility]) (test code = [facility] [address] 1538) [id number] 09:17:00 Test Item Value Reference Range Interpretation Comments PARTIAL THROMBOPLASTIN TIME 71.7 seconds 22.5-36.0 H (BEAKER) (test code = 760) POCT-GLUCOSE [id number] 08:07:00 Test Item Value Reference Range Interpretation Comments POC-GLUCOSE METER 137 mg/dL 70-110 H TESTED AT [facility] 6720 (BEAKER) (test code = [place] 1538) [address] [id number] 02:27:00 Test Item Value Reference Range Interpretation Comments PARTIAL THROMBOPLASTIN TIME 62.4 seconds 22.5-36.0 H (BEAKER) (test code = 760) PROTHROMBIN [id number] 02:26:00 Test Item Value Reference Range Interpretation Comments PROTIME (BEAKER) (test code = 20.0 seconds 11.7-14.7 H 759) INR (BEAKER) (test code = 370) 1.7 <=5.9 RECOMMENDED COUMADIN/WARFARIN INR THERAPY RANGESSTANDARD DOSE: 2.0 - 3.0 Includes: PROPHYLAXIS forvenous thrombosis, systemic embolization; TREATMENT for venous thrombosis and/or pulmonary embolus.HIGH RISK: Target INR is 2.5-3.5 for patients with mechanical heart valves.BASIC METABOLIC [id number] 02:02:00 Test Item Value Reference Range Interpretation [...] PATIEN TS. CBC W/PLT COUNT & AUTO [id number] 01:42:00 Test Item Value Reference Range Interpretation [...] IMMATURE GRANULOCYTES-RELATIVE 2 % 0-1 H PERCENT ([facility]) (test code = 2801) POCT-GLUCOSE [id number] 21:12:00 Test Item Value Reference Range Interpretation Comments POC-GLUCOSE METER 199 mg/dL 70-110 H TESTED AT [place] [address] ([facility]) (test code = [facility] 1538) [address] POCT-GLUCOSE [id number] 17:39:00 Test Item Value Reference Range Interpretation Comments POC-GLUCOSE METER 145 mg/dL 70-110 H TESTED AT [place] [address] ([facility]) (test code = [facility] 1538) [address] [id number] 17:33:00 Test Item Value Reference Range Interpretation Comments PARTIAL THROMBOPLASTIN TIME 47.3 seconds 22.5-36.0 H ([facility]) (test code = 760) POCT-GLUCOSE [id number] 12:53:00 Test Item Value Reference Range Interpretation Comments POC-GLUCOSE METER 203 mg/dL 70-110 H TESTED AT [place] [address] ([facility]) (test code = [facility] 1538) [address] POCT-GLUCOSE [id number] 08:28:00 Test Item Value Reference Range Interpretation Comments POC-GLUCOSE METER 98 mg/dL 70-110 TESTED AT [place] [address] ([facility]) (test code = [facility] [address] 1538) BASIC METABOLIC [id number] 05:52:00 Test Item Value Reference Range Interpretation [...] NOT APPLICABLE FOR DIALYSIS PATIEN TS. PROTHROMBIN [id number] 05:51:00 Test Item Value Reference Range Interpretation [...] PERCENT (BEAKER) (test code = 2801) POCT-GLUCOSE [id number] 20:54:00 Test Item Value Reference Range Interpretation Comments POC-GLUCOSE METER 126 mg/dL 70-110 H TESTED AT [place] [address] ([facility]) (test code = [facility] 1538) [address] POCT-GLUCOSE [id number] 18:47:00 Test Item Value Reference Range Interpretation Comments POC-GLUCOSE METER 70 mg/dL 70-110 TESTED AT [place] [address] ([facility]) (test code = [facility] [address] 1538) POCT-GLUCOSE [id number] 13:25:00 Test Item Value Reference Range Interpretation Comments POC-GLUCOSE METER 120 mg/dL 70-110 H TESTED AT [place] [address] ([facility]) (test code = [facility] 1538) [address] POCT-GLUCOSE [id number] 09:32:00 Test Item Value Reference Range Interpretation Comments POC-GLUCOSE METER 104 mg/dL 70-110 TESTED AT [place] [address] (BEAKER) (test code = [place] 1538) [address] BASIC METABOLIC [id number] 05:59:00 Test Item Value Reference Range Interpretation [...] NOT APPLICABLE FOR DIALYSIS PATIEN TS. PROTHROMBIN [id number] 05:20:00 Test Item Value Reference Range Interpretation [...] PERCENT (BEAKER) (test code = 2801) POCT-GLUCOSE [id number] 21:14:00 Test Item Value Reference Range Interpretation Comments POC-GLUCOSE METER 200 mg/dL 70-110 H TESTED AT [facility] 6720 (BEAKER) (test code = [place] 1538) [address] POCT-GLUCOSE [id number] 17:34:00 Test Item Value Reference Range Interpretation Comments POC-GLUCOSE METER 143 mg/dL 70-110 H TESTED AT [facility] 6720 (BEAKER) (test code = FOSTER Paul [place] 1538) [address] POCT-GLUCOSE [id number] 12:04:00 Test Item Value Reference Range Interpretation Comments POC-GLUCOSE METER 160 mg/dL 70-110 H TESTED AT [facility] 6720 (BEAKER) (test code = FOSTER Paul [place] 1538) [address] POCT-GLUCOSE [id number] 08:08:00 Test Item Value Reference Range Interpretation Comments POC-GLUCOSE METER 154 mg/dL 70-110 H TESTED AT [facility] 6720 (BEAKER) (test code = FOSTER Paul [facility] 1538) [address] BASIC METABOLIC [id number] 06:33:00 Test Item Value Reference Range Interpretation [...] S NOT APPLICABLE FOR DIALYSIS PATIEN TS. [id number] 06:01:00 Test Item Value Reference Range Interpretation Comments PARTIAL THROMBOPLASTIN TIME 117.2 seconds 22.5-36.0 H (BEAKER) (test code = 760) PROTHROMBIN [id number] 05:56:00 Test Item Value Reference Range Interpretation [...] ABSOLUTE COUNT 1.01 K/ L 1.32-3.57 L (AKER) (test code = 414) MONOCYTES ABSOLUTE COUNT (BEAKER) 0.96 K/ L 0.30-0.82 H (test code = 415) EOSINOPHILS ABSOLUTE COUNT 0.01 K/ L 0.04-0.54 L (AKER) (test code = 416) BASOPHILS ABSOLUTE COUNT (AKER) 0.01 K/ L 0.01-0.08 (test code = 417) IMMATURE GRANULOCYTES-RELATIVE 1 % 0-1 PERCENT ([facility]) (test code = 2801) POCT-GLUCOSE [id number] 21:37:00 Test Item Value Reference Range Interpretation Comments POC-GLUCOSE METER 121 mg/dL 70-110 H TESTED AT [place] [address] ([facility]) (test code = [facility] 1538) [address] POCT-GLUCOSE [id number] 19:01:00 Test Item Value Reference Range Interpretation Comments POC-GLUCOSE METER 191 mg/dL 70-110 H TESTED AT [place] [address] ([facility]) (test code = [facility] 1538) [address] [id number] 18:31:00 Test Item Value Reference Range Interpretation Comments PARTIAL THROMBOPLASTIN TIME 86.2 seconds 22.5-36.0 H ([facility]) (test code = 760) POCT-GLUCOSE [id number] 13:05:00 Test Item Value Reference Range Interpretation Comments POC-GLUCOSE METER 130 mg/dL 70-110 H TESTED AT [place] [address] ([facility]) (test code = [facility] 1538) [address] RAD, CHEST, 1 VIEW, NON [id number] 12:22:00Reason for exam:->pleural effusionsShould this be performed at the bedside?->YesFINAL REPORT RAD, CHEST, 1 VIEW, NON DEPT INDICATION: pleural effusions COMPAR BRIAN: December 04, 2018 FINDINGS: Portable frontal view of the chest. IMPRESSION: Worsening interstitial edema. Stable right effusion tracking into the minor fissure. Persistent enlargement of the cardiac silhouette with stable surgical changes. Sternotomy wires are intact. Signed: JR Platt Robert [facility]ITAL[facility]ort Verified Date/Time: 12/07/2018 12:22:50 Reading Location: [facility] C013V Neuro Reading Room [id number] 11:39:00 Test Item Value Reference Range Interpretation Comments PARTIAL THROMBOPLASTIN TIME 100.1 seconds 22.5-36.0 H (BEAKER) (test code = 760) BODY FLUID CULTURE + GRAM [id number] 10:13:00 Test Item Value Reference Range Interpretation Comments CULTURE (BEAKER) (test No growth code = 1095) GRAM STAIN RESULT <1+ White blood cells (BEAKER) (test code = seen 1123) GRAM STAIN RESULT No organisms seen (BEAKER) (test code = 94248) POCT-GLUCOSE [id number] 08:51:00 Test Item Value Reference Range Interpretation Comments POC-GLUCOSE METER 90 mg/dL 70-110 TESTED AT [facility] 6720 (BEAKER) (test code = FOSTER Paul [facility] [address] 1538) BASIC METABOLIC [id number] 07:31:00 Test Item Value Reference Range Interpretation [...] S NOT APPLICABLE FOR DIALYSIS PATIEN TS. [id number] 05:21:00 Test Item Value Reference Range Interpretation Comments PARTIAL THROMBOPLASTIN TIME 104.0 seconds 22.5-36.0 H (BEAKER) (test code = 760) PROTHROMBIN [id number] 04:50:00 Test Item Value Reference Range Interpretation [...] 0-1 PERCENT (BEAKER) (test code = 2801) [id number] 20:33:00 Test Item Value Reference Range Interpretation Comments PARTIAL THROMBOPLASTIN TIME 87.6 seconds 22.5-36.0 H (BEAKER) (test code = 760) POCT-GLUCOSE [id number] 19:30:00 Test Item Value Reference Range Interpretation Comments POC-GLUCOSE METER 112 mg/dL 70-110 H TESTED AT [facility] 67 (BEAKER) (test code = [facility] 1538) [address] [id number] 13:55:00 Test Item Value Reference Range Interpretation Comments PARTIAL THROMBOPLASTIN TIME 85.9 seconds 22.5-36.0 H (BEAKER) (test code = 760) POCT-GLUCOSE [id number] 09:12:00 Test Item Value Reference Range Interpretation Comments POC-GLUCOSE METER 112 mg/dL 70-110 H TESTED AT [facility] 6720 (BEAKER) (test code = [facility] 1538) [address] BASIC METABOLIC [id number] 08:53:00 Test Item Value Reference Range Interpretation [...] S NOT APPLICABLE FOR DIALYSIS PATIEN TS. [id number] 06:04:00 Test Item Value Reference Range Interpretation Comments PARTIAL THROMBOPLASTIN TIME 105.5 seconds 22.5-36.0 H (BEAKER) (test code = 760) PROTHROMBIN TIME/[id number] 05:44:00 Test Item Value Reference Range Interpretation [...] (test code = 2801) CT, CHEST, WITHOUT [id number] 03:17:00FINAL REPORT EXAM: CT of the chest, [...] left pleural effusion with associated compressive atelectasis. Qelst-zz-ygtttwmy loculated right pleural effusion with pleural thickening [...] follow up is recommendedCardiomegaly. Signed: Raz Taylor MDReport Verified Date/Time: 12/06/2018 03:17:03 Reading Location: [facility] C013Y CT Body Reading Room POCT-GLUCOSE [id number] 21:22:00 Test Item Value Reference Range Interpretation Comments POC-GLUCOSE METER 171 mg/dL 70-110 H TESTED AT [place] [address] ([facility]) (test code = [facility] 1538) [address] POCT-GLUCOSE [id number] 17:58:00 Test Item Value Reference Range Interpretation Comments POC-GLUCOSE METER 128 mg/dL 70-110 H TESTED AT [place] [address] ([facility]) (test code = [facility] 1538) [address] POCT-GLUCOSE [id number] 13:24:00 Test Item Value Reference Range Interpretation Comments POC-GLUCOSE METER 129 mg/dL 70-110 H TESTED AT [place] [address] ([facility]) (test code = [facility] 1538) [address] LACTATE DEHYDROGENASE (LDH)2018-12-05 13:14:00 Test Item Value Reference Range Interpretation Comments LACTATE DEHYDROGENASE (BEAKER) (test 291 U/L 125-220 H code = 635) [id number] 13:10:00 Test Item Value Reference Range Interpretation Comments PARTIAL THROMBOPLASTIN TIME 91.7 seconds 22.5-36.0 H (BEAKER) (test code = 760) POCT-GLUCOSE [id number] 08:19:00 Test Item Value Reference Range Interpretation Comments POC-GLUCOSE METER 106 mg/dL 70-110 TESTED AT [facility] 6720 (BEAKER) (test code = FOSTER Paul [facility] 1538) [address] BASIC METABOLIC [id number] 07:05:00 Test Item Value Reference Range Interpretation [...] S NOT APPLICABLE FOR DIALYSIS PATIEN TS. [id number] 06:32:00 Test Item Value Reference Range Interpretation [...] 2.5-3.5 for patients with mechanical heart valves.PROTHROMBIN TIME/[id number] 06:30:00 Test Item Value Reference Range Interpretation [...] 0-1 PERCENT (BEAKER) (test code = 2801) [id number] 00:40:00 Test Item Value Reference Range Interpretation Comments PARTIAL THROMBOPLASTIN TIME 63.1 seconds 22.5-36.0 H (BEAKER) (test code = 760) POCT-GLUCOSE [id number] 00:12:00 Test Item Value Reference Range Interpretation Comments POC-GLUCOSE METER 124 mg/dL 70-110 H TESTED AT [facility] 6720 (BEAKER) (test code = FOSTER Paul [facility] 1538) [address] HEPATITIS B SURFACE [id number] 22:54:00 Test Item Value Reference Range Interpretation Comments HEPATITIS B SURFACE ANTIGEN (2) Nonreactive Nonreactive (BEAKER) (test code = 2585) For chronic HD patients, draw HBsAg with each admission then every 30 days.BODY FLUID CELL COUNT WITH [id number] 20:34:00 Test Item Value Reference Range Interpretation Comments APPEARANCE FLUID (BEAKER) (test Cloudy Clear A code = 510) COLOR FLUID (BEAKER) (test code Brown Colorless, Straw A = 511) RBC FLUID (BEAKER) (test code = 18155 /cu mm <=1 H 513) ADJUSTED WBC [...] code = 2873) LACTATE DEHYDROGENASE (LDH), BODY [id number] 19:43:00 Test Item Value Reference Range Interpretation [...] local 1% lidocaine anesthesia was administered.A 4 Prydeinig catheter was advanced into the largest pocket of the septated pleural effusion and 300 ccof bloody fluid was removed. The catheter was removed without immediate complication. Samples were sent for analysis. IMPRESSION:Uncomplicated ultrasound-guided right thoracentesis with 300 cc fluid removed. Signed: Raimundo Kim MDReport Verified Date/Time: 12/04/2018 18:00:50 Reading Location: [address] Ultrasound Reading Room RAD, CHEST, 1 VIEW, NON [id number] 17:23:00Reason for exam:->s/p right thoracentesisShould this be [...] MDReport Verified Date/Time: 12/04/2018 17:23:06 Reading Location: [facility] Reading Room C. DIFFICILE GDH [id number] 10:01:00 Test Item Value Reference Range Interpretation Comments CDT TOXIN (test code Negative Negative = [id number]) CDT GDH ANTIGEN Positive Negative A C. difficile present but (test code = toxin not detec jayla. [id number]) Indicates colon ization with non-toxige ron strain or level of tox in below detectable leve ls. No need for enteri c isolation. Gary atment is rarely needed ( only when strong clinical suspicion for Clostridium difficile infection) Testing performed by [employer] Rapid Cassette Assay. For GDH, published sensitivity of the assay is 98.7% compared to cytotoxicity testing. For Toxin AB, published sensitivity is 87.8% and specificity 99.4% compared to cytotoxicity testing.Verification of kit performance was done by the [facility] Microbiology Lab prior to clinical use.[id number] 09:39:00 Test Item Value Reference Range Interpretation Comments PARTIAL THROMBOPLASTIN TIME 79.4 seconds 22.5-36.0 H (BEAKER) (test code = 760) OCCULT BLOOD, [id number] 05:59:00 Test Item Value Reference Range Interpretation Comments FECAL OCCULT BLOOD (BEAKER) (test Negative Negative code = 618) BASIC METABOLIC [id number] 02:50:00 Test Item Value Reference Range Interpretation [...] S NOT APPLICABLE FOR DIALYSIS PATIEN TS. [id number] 02:50:00 Test Item Value Reference Range Interpretation Comments PARTIAL THROMBOPLASTIN TIME 35.3 seconds 22.5-36.0 (BEAKER) (test code = 760) Prior to initiating heparinPROTHROMBIN TIME/[id number] 02:49:00 Test Item Value Reference Range Interpretation [...] acute neurological disease, and persistent tachyarrhythmia.HEPATIC FUNCTION [id number] 02:43:00 Test Item Value Reference Range Interpretation [...] 6-55 347) CBC W/PLT COUNT & AUTO [id number] 02:21:00 Test Item Value Reference Range Interpretation [...] PERCENT (BEAKER) (test code = 2801) POCT-GLUCOSE [id number] 21:22:00 Test Item Value Reference Range Interpretation Comments POC-GLUCOSE METER 192 mg/dL 70-110 H TESTED AT [facility] 6720 ([facility]) (test code = [facility] 1538) [address] TROPONIN [id number] 17:09:00 Test Item Value Reference Range Interpretation [...] and persistent tachyarrhythmia.RAD, CHEST, 1 VIEW, NON [id number] 15:36:00Reason for exam:->SHORTNESS OF BREATHShould this be performed at the bedside?->YesFINAL REPORT AP chest HISTORY: Shortness of breath. COMPARISON: 11/03/2017. IMPRESSION: Cardiomegaly. Mild interstitial edema. Right effusion and adjacent atelectasis. No pneumothorax. Signed: Mandy Chairezeport Verified Date/Time: 12/03/2018 15:36:19 Reading Location: [address] Radiology Reading Room TROPONIToy [id number] 14:48:00 Test Item Value Reference Range Interpretation [...] (BEAKER) (test code = 700) BASIC METABOLIC [id number] 14:40:00 Test Item Value Reference Range Interpretation [...] S NOT APPLICABLE FOR DIALYSIS PATIEN TS. [id number] 14:34:00 Test Item Value Reference Range Interpretation [...] (test code = 2801) RAD, CHEST, 2 [id number] 15:24:00Reason for Exam:->chronic Diastolic heart FailureFINAL REPORT [...] MDReport Verified Date/Time: 11/03/2018 15:24:42 Reading Location: [address] Radiology Reading Room MISCELLANEOUS LAB [id number] 08:22:00 Test Item Value Reference Range Interpretation Comments SCAN RESULT (test code = 4001154) PROTHROMBIN [id number] 08:37:00 Test Item Value Reference Range Interpretation Comments PROTIME (BEAKER) (test code = 24.8 seconds 11.7-14.7 H 759) INR (BEAKER) (test code = 370) 2.2 <=5.9 RECOMMENDED COUMADIN/WARFARIN INR THERAPY RANGESSTANDARD DOSE: 2.0 - 3.0 Includes: PROPHYLAXIS forvenous thrombosis, systemic embolization; TREATMENT for venous thrombosis and/or pulmonary embolus.HIGH RISK: Target INR is 2.5-3.5 for patients with mechanical heart valves.POCT-GLUCOSE [id number] 08:10:00 Test Item Value Reference Range Interpretation Comments POC-GLUCOSE METER 89 mg/dL 70-110 TESTED AT [facility] 6720 (BEAKER) (test code = FOSTER Paul [facility] [address] 1538) BASIC METABOLIC [id number] 06:29:00 Test Item Value Reference Range Interpretation [...] S NOT APPLICABLE FOR DIALYSIS PATIEN TS. [id number] 06:28:00 Test Item Value Reference Range Interpretation Comments MAGNESIUM (BEAKER) (test code = 1.8 mg/dL 1.6-2.6 627) [id number] 06:14:00 Test Item Value Reference Range Interpretation Comments PARTIAL THROMBOPLASTIN TIME 64.7 seconds 22.5-36.0 H (BEAKER) (test code = 760) CBC W/PLT COUNT & AUTO [id number] 05:58:00 Test Item Value Reference Range Interpretation [...] 417) IMMATURE GRANULOCYTES-RELATIVE 1 % 0-1 PERCENT ([facility]) (test code = 2801) POCT-GLUCOSE [id number] 21:14:00 Test Item Value Reference Range Interpretation Comments POC-GLUCOSE METER 135 mg/dL 70-110 H TESTED AT [place] [address] ([facility]) (test code = FOSTER Paul [facility] 1538) [address] [id number] 19:36:00 Test Item Value Reference Range Interpretation Comments PARTIAL THROMBOPLASTIN TIME 88.6 seconds 22.5-36.0 H ([facility]) (test code = 760) POCT-GLUCOSE [id number] 18:27:00 Test Item Value Reference Range Interpretation Comments POC-GLUCOSE METER 88 mg/dL 70-110 TESTED AT [place] [address] ([facility]) (test code = FOSTER Paul [facility] [address] 1538) POCT-GLUCOSE [id number] 12:05:00 Test Item Value Reference Range Interpretation Comments POC-GLUCOSE METER 92 mg/dL 70-110 TESTED AT [place] [address] ([facility]) (test code = FOSTER Paul [facility] [address] 1538) [id number] 11:46:00 Test Item Value Reference Range Interpretation Comments PARTIAL THROMBOPLASTIN TIME 74.3 seconds 22.5-36.0 H ([facility]) (test code = 760) POCT-GLUCOSE [id number] 10:36:00 Test Item Value Reference Range Interpretation Comments POC-GLUCOSE METER 101 mg/dL 70-110 TESTED AT [place] [address] ([facility]) (test code = FOSTER Paul [facility] 1538) [address] POCT-GLUCOSE [id number] 07:10:00 Test Item Value Reference Range Interpretation Comments POC-GLUCOSE METER 92 mg/dL 70-110 TESTED AT [place] [address] ([facility]) (test code = FOSTER Paul [facility] [address] 1538) PROTHROMBIN [id number] 01:41:00 Test Item Value Reference Range Interpretation Comments PROTIME ([facility]) (test code = 22.8 seconds 11.7-14.7 H 759) INR ([facility]) (test code = 370) 2.0 <=5.9 RECOMMENDED COUMADIN/WARFARIN INR THERAPY RANGESSTANDARD DOSE: 2.0 - 3.0 Includes: PROPHYLAXIS forvenous thrombosis, systemic embolization; TREATMENT for venous thrombosis and/or pulmonary embolus.HIGH RISK: Target INR is 2.5-3.5 for patients with mechanical heart valves.While on warfarin.[id number] 01:41:00 Test Item Value Reference Range Interpretation Comments PARTIAL THROMBOPLASTIN TIME 52.3 seconds 22.5-36.0 H (BEAKER) (test code = 760) While on warfarin.BASIC METABOLIC [id number] 01:37:00 Test Item Value Reference Range Interpretation [...] S NOT APPLICABLE FOR DIALYSIS PATIEN TS. [id number] 01:32:00 Test Item Value Reference Range Interpretation Comments MAGNESIUM (BEAKER) (test code = 1.8 mg/dL 1.6-2.6 627) CBC W/PLT COUNT & AUTO [id number] 01:18:00 Test Item Value Reference Range Interpretation [...] 0-1 PERCENT (BEAKER) (test code = 2801) [id number] 23:23:00 Test Item Value Reference Range Interpretation Comments PARTIAL THROMBOPLASTIN TIME 125.2 seconds 22.5-36.0 H (BEAKER) (test code = 760) POCT-GLUCOSE [id number] 21:19:00 Test Item Value Reference Range Interpretation Comments POC-GLUCOSE METER 165 mg/dL 70-110 H TESTED AT [place] [address] ([facility]) (test code = FOSTER Paul [facility] 1538) [address] POCT-GLUCOSE [id number] 18:34:00 Test Item Value Reference Range Interpretation Comments POC-GLUCOSE METER 92 mg/dL 70-110 TESTED AT [place] [address] ([facility]) (test code = FOSTER Paul [facility] [address] 1538) [id number] 17:17:00 Test Item Value Reference Range Interpretation Comments PARTIAL THROMBOPLASTIN TIME 75.2 seconds 22.5-36.0 H ([facility]) (test code = 760) POCT-GLUCOSE [id number] 12:48:00 Test Item Value Reference Range Interpretation Comments POC-GLUCOSE METER 105 mg/dL 70-110 TESTED AT [place] [address] ([facility]) (test code = FOSTER Paul [facility] 1538) [address] RAD, CHEST, 1 VIEW, NON [id number] 11:00:00Reason for exam:->eval right effusionShould this be performed at the bedside?->YesFINAL REPORT Comparison: 08/15/2018 TECHNIQUE: Single view of the chest FINDINGS: Small to moderate right pleural effusion is stable. Small left pleural effusion may be slightly increased. Vascular congestion seen. No other significant change. Signed: Kyle Evans Verified Date/Time: 08/18/2018 11:00:36 Reading Location: [facility] Radiology Reading Room Electronicallysigned by: KYLE EVANS M.D. on 08/18/2018 11:00 [id number] 09:48:00 Test Item Value Reference Range Interpretation Comments PARTIAL THROMBOPLASTIN TIME 48.8 seconds 22.5-36.0 H ([facility]) (test code = 760) POCT-GLUCOSE [id number] 07:37:00 Test Item Value Reference Range Interpretation Comments POC-GLUCOSE METER 96 mg/dL 70-110 TESTED AT [facility] 67 ([facility]) (test code = FOSTER Paul [facility] [address] 1538) BASIC METABOLIC [id number] 02:24:00 Test Item Value Reference Range Interpretation Comments SODIUM (AKER) 136 meq/L 136-145 (test code = 381) [...] S NOT APPLICABLE FOR DIALYSIS PATIEN TS. [id number] 02:22:00 Test Item Value Reference Range Interpretation Comments MAGNESIUM (BEAKER) (test code = 1.7 mg/dL 1.6-2.6 627) [id number] 02:15:00 Test Item Value Reference Range Interpretation Comments PARTIAL THROMBOPLASTIN TIME 98.9 seconds 22.5-36.0 H (BEAKER) (test code = 760) PROTHROMBIN [id number] 02:13:00 Test Item Value Reference Range Interpretation [...] PERCENT (BEAKER) (test code = 2801) POCT-GLUCOSE [id number] 21:51:00 Test Item Value Reference Range Interpretation Comments POC-GLUCOSE METER 98 mg/dL 70-110 TESTED AT [facility] 6720 (BEAKER) (test code = FOSTER Paul [facility] [address] 1538) [id number] 18:51:00 Test Item Value Reference Range Interpretation Comments PARTIAL THROMBOPLASTIN TIME 56.1 seconds 22.5-36.0 H (BEAKER) (test code = 760) [id number] 17:06:00 Test Item Value Reference Range Interpretation Comments PARTIAL THROMBOPLASTIN TIME 121.9 seconds 22.5-36.0 H (BEAKER) (test code = 760) POCT-GLUCOSE [id number] 16:46:00 Test Item Value Reference Range Interpretation Comments POC-GLUCOSE METER 135 mg/dL 70-110 H TESTED AT [place] [address] ([facility]) (test code = FOSTER Paul [facility] 1538) [address] POCT-GLUCOSE [id number] 13:28:00 Test Item Value Reference Range Interpretation Comments POC-GLUCOSE METER 96 mg/dL 70-110 TESTED AT [place] [address] ([facility]) (test code = FOSTER Paul [facility] [address] 1538) [id number] 09:15:00 Test Item Value Reference Range Interpretation Comments PARTIAL THROMBOPLASTIN TIME 58.1 seconds 22.5-36.0 H (BEAKER) (test code = 760) BASIC METABOLIC [id number] 07:31:00 Test Item Value Reference Range Interpretation [...] S NOT APPLICABLE FOR DIALYSIS PATIEN TS. [id number] 07:19:00 Test Item Value Reference Range Interpretation Comments PHOSPHORUS (BEAKER) (test code = 3.7 mg/dL 2.3-4.7 604) [id number] 07:19:00 Test Item Value Reference Range Interpretation Comments MAGNESIUM (BEAKER) (test code = 1.7 mg/dL 1.6-2.6 627) [id number] 07:07:00 Test Item Value Reference Range Interpretation Comments PARTIAL THROMBOPLASTIN TIME 124.4 seconds 22.5-36.0 H (BEAKER) (test code = 760) PROTHROMBIN [id number] 07:02:00 Test Item Value Reference Range Interpretation [...] 0-1 PERCENT (BEAKER) (test code = 2801) [id number] 23:01:00 Test Item Value Reference Range Interpretation Comments PARTIAL THROMBOPLASTIN TIME 46.5 seconds 22.5-36.0 H (BEAKER) (test code = 760) POCT-GLUCOSE [id number] 22:45:00 Test Item Value Reference Range Interpretation Comments POC-GLUCOSE METER 144 mg/dL 70-110 H TESTED AT [facility] [address] ([facility]) (test code = FOSTER LÓPEZ [place] 1538) [address] [id number] 15:02:00 Test Item Value Reference Range Interpretation Comments PARTIAL THROMBOPLASTIN TIME 56.1 seconds 22.5-36.0 H ([facility]) (test code = 760) POCT-GLUCOSE [id number] 14:39:00 Test Item Value Reference Range Interpretation Comments POC-GLUCOSE METER 189 mg/dL 70-110 H TESTED AT [facility] 67[address] ([facility]) (test code = FOSTER Paul [facility] 1538) [address] HIV-1 PCR, [id number] 13:58:00 Test Item Value Reference Range Interpretation Comments HIV-1 NUMERIC RESULT ([facility]) (test 170 Cp/mL <20 H code = 2704) This test uses a Real-Time Polymerase Chain Reaction (RT-PCR) methodology to detect a highly conserved region of the HIV-1 gag gene and was performed using the ERICH AmpliPrep/ERICH TaqMan HIV-1 test kit version 2.0 ([employer]Reportable range for this assay is 20 - 10,000,000 copies per mL (1.3 - 7.0 Log copies/mL).[id number] 12:54:00 Test Item Value Reference Range Interpretation Comments PARTIAL THROMBOPLASTIN TIME 143.6 seconds 22.5-36.0 H ([facility]) (test code = 760) [id number] 10:00:00Medical Cytology Report Case: [id number] Authorizing Provider: Alison Solano MD Collected: 08/13/2018 1803 Ordering Location: [address] Received: 08/14/2018 0970 Service Pathologist: Yamil Hamm MD Specimen: Pleural, Right RIGHT PLEURAL FLUID (CYTOSPINS AND CELL BLOCK): - NO MALIGNANT CELLS IDENTIFIED (SEE COMMENT) Signing Pathologist Direct Phone Line: [phone] signed by Yamil Hamm MD on 08/16/2018 [...] thoracentesis may be considered when fluid reaccumulates. 69981, 55428, 58313, 18938 x 2Left pleural effusion, history of AIDS, Kaposi's sarcoma, hepatitis C.RIGHT PLEURAL FLUID 300 mls bloody; 4 cytospins, cell blockCollected: [id number]: [id number] interpretation of this case included the use of immunohistochemistry or special stains. Please see the immunohistochemistry results in the COMMENT section. Immunohistochemistry technical testing was performed at [facility], Pathology Laboratory where it was developed [...] as qualified toperform high complexity clinical laboratory testing.[facility], Department of Pathology, [address] [place] [address], [facility], [address] [place] [address], [facility], [facility] of [facility], [address] [place] [address], FBKA-GLUCOSE [id number] 08:29:00 Test Item Value Reference Range Interpretation Comments POC-GLUCOSE METER 96 mg/dL 70-110 TESTED AT [place] [address] ([facility]) (test code = FOSTER Paul [place] [address] 1538) BODY FLUID CULTURE + GRAM [id number] 07:54:00 Test Item Value Reference Range Interpretation Comments CULTURE (BEAKER) (test code No growth = 1095) GRAM STAIN RESULT (BEAKER) <1+ WBCs (test code = 1123) GRAM STAIN RESULT (BEAKER) No organisms seen (test code = 29259) BASIC METABOLIC [id number] 06:30:00 Test Item Value Reference Range Interpretation [...] S NOT APPLICABLE FOR DIALYSIS PATIEN TS. [id number] 06:26:00 Test Item Value Reference Range Interpretation Comments MAGNESIUM (BEAKER) (test code = 1.6 mg/dL 1.6-2.6 627) [id number] 05:48:00 Test Item Value Reference Range Interpretation Comments PARTIAL THROMBOPLASTIN TIME 80.3 seconds 22.5-36.0 H (BEAKER) (test code = 760) While on warfarin.PROTHROMBIN TIME/[id number] 05:46:00 Test Item Value Reference Range Interpretation [...] valves.While on warfarin.CBC W/PLT COUNT & AUTO [id number] 05:28:00 Test Item Value Reference Range Interpretation [...] 0-1 PERCENT (AKER) (test code = 2801) [id number] 22:09:00 Test Item Value Reference Range Interpretation Comments PARTIAL THROMBOPLASTIN TIME 61.5 seconds 22.5-36.0 H ([facility]) (test code = 760) RAD, CHEST, 1 VIEW, NON [id number] 20:20:00Reason for exam:->eval right effusionShould this be [...] Anderson Verified Date/Time: 08/15/2018 20:20:24 Reading Location: [facility] Radiology Reading Room POCT-GLUCOSE [id number] 19:05:00 Test Item Value Reference Range Interpretation Comments POC-GLUCOSE METER 87 mg/dL 70-110 TESTED AT [facility] 67[address] ([facility]) (test [facility] = [facility] [address] 1538) POCT-GLUCOSE [id number] 13:12:00 Test Item Value Reference Range Interpretation Comments POC-GLUCOSE METER 162 mg/dL 70-110 H TESTED AT [facility] 6720 ([facility]) (test code = FOSTER Paul [facility] 1538) [address] [id number] 12:48:00 Test Item Value Reference Range Interpretation Comments PARTIAL THROMBOPLASTIN TIME 89.1 seconds 22.5-36.0 H ([facility]) (test code = 760) POCT-GLUCOSE [id number] 09:58:00 Test Item Value Reference Range Interpretation Comments POC-GLUCOSE METER 229 mg/dL 70-110 H TESTED AT [facility] 6720 (BEAKER) (test code = FOSTER LÓPE[place] 1538) [address] BASIC METABOLIC [id number] 05:40:00 Test Item Value Reference Range Interpretation [...] PATIEN TS. CBC W/PLT COUNT & AUTO [id number] 05:38:00 Test Item Value Reference Range Interpretation [...] 0-1 PERCENT (BEAKER) (test code = 2801) [id number] 05:28:00 Test Item Value Reference Range Interpretation Comments MAGNESIUM (BEAKER) (test code = 1.8 mg/dL 1.6-2.6 627) [id number] 04:47:00 Test Item Value Reference Range Interpretation Comments PARTIAL THROMBOPLASTIN TIME 60.9 seconds 22.5-36.0 H (BEAKER) (test code = 760) PROTHROMBIN [id number] 04:46:00 Test Item Value Reference Range Interpretation Comments PROTIME (BEAKER) (test code = 17.9 seconds 11.7-14.7 H 759) INR (BEAKER) (test code = 370) 1.5 <=5.9 RECOMMENDED COUMADIN/WARFARIN INR THERAPY RANGESSTANDARD DOSE: 2.0 - 3.0 Includes: PROPHYLAXIS forvenous thrombosis, systemic embolization; TREATMENT for venous thrombosis and/or pulmonary embolus.HIGH RISK: Target INR is 2.5-3.5 for patients with mechanical heart valves.[id number] 20:56:00 Test Item Value Reference Range Interpretation Comments PARTIAL THROMBOPLASTIN TIME 52.1 seconds 22.5-36.0 H (BEAKER) (test code = 760) CT, CHEST, WITHOUT [id number] 19:06:00S/p fall in Jul--> right effusion, tapped [...] paratracheal mediastinal lymph node. Signed: Louie Tapia Verified Date/Time: 08/14/2018 19:06:09 Reading Location: [address] Reading Room APTT 2018-08-14 12:40:00 Test Item Value Reference Range Interpretation Comments PARTIAL THROMBOPLASTIN TIME 48.4 seconds 22.5-36.0 H ([facility]ZOILA) (test code = 760) CD4 T CELL [id number] 11:15:00 Test Item Value Reference Range Interpretation [...] 107-698 L (BEAKER) (test code = 3491) [id number] 10:48:00 Test Item Value Reference Range Interpretation Comments PHOSPHORUS (BEAKER) (test code = 5.2 mg/dL 2.3-4.7 H 604) BASIC METABOLIC [id number] 07:13:00 Test Item Value Reference Range Interpretation [...] S NOT APPLICABLE FOR DIALYSIS PATIEN TS. [id number] 07:11:00 Test Item Value Reference Range Interpretation Comments MAGNESIUM (BEAKER) (test code = 1.8 mg/dL 1.6-2.6 627) [id number] 07:00:00 Test Item Value Reference Range Interpretation Comments PARTIAL THROMBOPLASTIN TIME 59.2 seconds 22.5-36.0 H (BEAKER) (test code = 760) PROTHROMBIN [id number] 06:59:00 Test Item Value Reference Range Interpretation [...] 0-1 PERCENT (BEAKER) (test code = 2801) [id number] 00:30:00 Test Item Value Reference Range Interpretation Comments PARTIAL THROMBOPLASTIN TIME 56.7 seconds 22.5-36.0 H (BEAKER) (test code = 760) BODY FLUID CELL COUNT WITH [id number] 19:28:00 Test Item Value Reference Range Interpretation Comments APPEARANCE FLUID (BEAKER) (test Cloudy Clear A code = 510) COLOR FLUID (BEAKER) (test code Red Colorless, Straw A = 511) RBC FLUID (BEAKER) (test code = 47049 /cu mm <=1 H 513) ADJUSTED WBC [...] Tube (test code = 2873) ALBUMIN, BODY [id number] 18:40:00 Test Item Value Reference Range Interpretation Comments ALBUMIN FLUID (BEAKER) (test code = 2.1 gm/dL 501) Reference Range: No Normals Assay performance has not been validated for this type of specimen.LACTATE DEHYDROGENASE (LDH), BODY [id number] 18:40:00 Test Item Value Reference Range Interpretation [...] 125-220 H code = 635) HEPATIC FUNCTION [id number] 18:40:00 Test Item Value Reference Range Interpretation [...] 6-55 347) RAD, CHEST, 1 VIEW, NON [id number] 17:56:00Reason for exam:->post Right thoracentesisShould this be [...] appendage closure. Interstitial edema. Signed: Katherine Arteaga [facility] Verified Date/Time: 08/13/2018 17:56:18 Reading Location: [address] Consult Reading Room U/S, [id number] 16:22:00Reason for exam:->shortness of breath, recurrent right pleural effusionShould this be performed at the bedside?->NoFINAL REPORT Ultrasound guided right thoracentesis, 08/13/2018. Clinical History: Right pleural effusion. Modality: Ultrasound. Sedation: None. Aquatic Scientist: Gini. Visual Merchandise Manager: None. Estimated Blood Loss: 1cc Specimen: 1600 [...] Musa Verified Date/Time: 08/13/2018 16:22:16 Reading Location: [address] Ultrasound Reading Room [id number] 07:18:00 Test Item Value Reference Range Interpretation Comments MAGNESIUM (BEAKER) (test code = 2.0 mg/dL 1.6-2.6 627) BASIC METABOLIC [id number] 07:18:00 Test Item Value Reference Range Interpretation [...] PATIEN TS. RAD, CHEST, 1 VIEW, NON [id number] 06:25:00Reason for exam:->SOBShould this be performed at [...] Taylor Verified Date/Time: 08/13/2018 06:25:21 Reading Location: [address] Transitional Re ading Room [id number] 05:49:00 Test Item Value Reference Range Interpretation Comments PARTIAL THROMBOPLASTIN TIME 42.0 seconds 22.5-36.0 H (BEAKER) (test code = 760) PROTHROMBIN TIME/[id number] 05:48:00 Test Item Value Reference Range Interpretation [...] PERCENT (BEAKER) (test code = 2801) POCT-GLUCOSE [id number] 18:30:00 Test Item Value Reference Range Interpretation Comments POC-GLUCOSE METER 80 mg/dL 70-110 TESTED AT [facility] 6720 (BEAKER) (test code = MARIA GNJ Humberto [facility] [address] 1538) RAD, CHEST, 1 VIEW, NON [id number] 13:46:00Reason for exam:->evaluate pleural effusionShould this be performed at the bedside?->YesFINAL REPORT Comparison: 08/02/2018 TECHNIQUE: Single view of the chest FINDINGS Bilateral interstitial and airspace opacities are stable. Bilateral pleural effusions seen, right greater than left. No gross new lung parenchymal changes. Post surgical changes in the mediastinum. IMPRESSION: No significant interval change. Signed: Kyle Evans MDReport Verified Date/Time: 08/06/2018 13:46:20 Reading Location: [facility] Radiology Reading Room [id number] 09:33:00 Test Item Value Reference Range Interpretation Comments PARTIAL THROMBOPLASTIN TIME 113.6 seconds 22.5-36.0 H (BEAKER) (test code = 760) [id number] 06:48:00 Test Item Value Reference Range Interpretation [...] heart valves.While on warfarin.While on warfarin.BASIC METABOLIC [id number] 06:45:00 Test Item Value Reference Range Interpretation [...] NOT APPLICABLE FOR DIALYSIS PATIEN TS. PROTHROMBIN [id number] 06:43:00 Test Item Value Reference Range Interpretation [...] WBC 0-0 (BEAKER) (test code = 413) [id number] 20:40:00 Test Item Value Reference Range Interpretation Comments PARTIAL THROMBOPLASTIN TIME 81.7 seconds 22.5-36.0 H (BEAKER) (test code = 760) [id number] 14:05:00 Test Item Value Reference Range Interpretation Comments PARTIAL THROMBOPLASTIN TIME 91.5 seconds 22.5-36.0 H (BEAKER) (test code = 760) BASIC METABOLIC [id number] 07:02:00 Test Item Value Reference Range Interpretation [...] S NOT APPLICABLE FOR DIALYSIS PATIEN TS. [id number] 06:47:00 Test Item Value Reference Range Interpretation [...] valves.Ok to add onOk to add onPROTHROMBIN TIME/[id number] 06:46:00 Test Item Value Reference Range Interpretation [...] 0-1 PERCENT (BEAKER) (test code = 2801) [id number] 16:22:00 Test Item Value Reference Range Interpretation Comments PARTIAL THROMBOPLASTIN TIME 76.1 seconds 22.5-36.0 H (BEAKER) (test code = 760) BODY FLUID CULTURE + GRAM [id number] 09:10:00 Test Item Value Reference Range Interpretation Comments CULTURE (BEAKER) (test code No growth = 1095) GRAM STAIN RESULT (BEAKER) <1+ WBCs (test code = 1123) GRAM STAIN RESULT (BEAKER) No organisms seen (test code = 98037) CBC W/PLT COUNT & AUTO [id number] 07:23:00 Test Item Value Reference Range Interpretation [...] (BEAKER) (test code = 413) BASIC METABOLIC [id number] 07:05:00 Test Item Value Reference Range Interpretation [...] S NOT APPLICABLE FOR DIALYSIS PATIEN TS. [id number] 06:53:00 Test Item Value Reference Range Interpretation [...] heart valves.Ok to add onOk to add [id number] 06:53:00 Test Item Value Reference Range Interpretation Comments PARTIAL THROMBOPLASTIN TIME 70.3 seconds 22.5-36.0 H (BEAKER) (test code = 760) PROTHROMBIN TIME/[id number] 06:52:00 Test Item Value Reference Range Interpretation Comments PROTIME (BEAKER) (test code = 17.5 seconds 11.7-14.7 H 759) INR (BEAKER) (test code = 370) 1.4 <=5.9 RECOMMENDED COUMADIN/WARFARIN INR THERAPY RANGESSTANDARD DOSE: 2.0 - 3.0 Includes: PROPHYLAXIS forvenous thrombosis, systemic embolization; TREATMENT for venous thrombosis and/or pulmonary embolus.HIGH RISK: Target INR is 2.5-3.5 for patients with mechanical heart valves.PROTHROMBIN [id number] 06:51:00 Test Item Value Reference Range Interpretation Comments PROTIME (BEAKER) (test code = 17.7 seconds 11.7-14.7 H 759) INR (BEAKER) (test code = 370) 1.5 <=5.9 RECOMMENDED COUMADIN/WARFARIN INR THERAPY RANGESSTANDARD DOSE: 2.0 - 3.0 Includes: PROPHYLAXIS forvenous thrombosis, systemic embolization; TREATMENT for venous thrombosis and/or pulmonary embolus.HIGH RISK: Target INR is 2.5-3.5 for patients with mechanical heart valves.While on warfarin.[id number] 22:47:00 Test Item Value Reference Range Interpretation Comments PARTIAL THROMBOPLASTIN TIME 73.6 seconds 22.5-36.0 H (BEAKER) (test code = 760) [id number] 13:08:00 Test Item Value Reference Range Interpretation Comments PARTIAL THROMBOPLASTIN TIME 49.2 seconds 22.5-36.0 H (BEAKER) (test code = 760) BASIC METABOLIC [id number] 06:56:00 Test Item Value Reference Range Interpretation [...] S NOT APPLICABLE FOR DIALYSIS PATIEN TS. [id number] 06:56:00 Test Item Value Reference Range Interpretation Comments PARTIAL THROMBOPLASTIN TIME 67.5 seconds 22.5-36.0 H (BEAKER) (test code = 760) [id number] 06:45:00 Test Item Value Reference Range Interpretation [...] valves.Ok to add onOk to add onPROTHROMBIN TIME/[id number] 06:44:00 Test Item Value Reference Range Interpretation [...] /100 WBC 0-0 (test code = 413) [id number] 02:18:00 Test Item Value Reference Range Interpretation Comments PARTIAL THROMBOPLASTIN TIME 67.1 seconds 22.5-36.0 H (BEAKER) (test code = 760) [id number] 18:56:00 Test Item Value Reference Range Interpretation Comments PARTIAL THROMBOPLASTIN TIME 72.5 seconds 22.5-36.0 H (BEAKER) (test code = 760) POCT-GLUCOSE [id number] 13:08:00 Test Item Value Reference Range Interpretation Comments POC-GLUCOSE METER 121 mg/dL 70-110 H TESTED AT [facility] 6720 (BEAKER) (test code = FOSTER BRAND[place] 1538) [address] [id number] 12:07:00 Test Item Value Reference Range Interpretation Comments PARTIAL THROMBOPLASTIN TIME 50.7 seconds 22.5-36.0 H (BEAKER) (test code = 760) Ok to add onPROTHROMBIN TIME/[id number] 12:05:00 Test Item Value Reference Range Interpretation [...] = 413) RAD, CHEST, 1 VIEW, NON [id number] 11:24:00Reason for exam:->pleural effusionShould this be performed at the bedside?->YesFINAL REPORT AP chest HISTORY: Pleural effusion COMPARISON: 08/01/2018 IMPRESS ION:Intact skeleton. Cardiomegaly. Moderate interstitial edema. Moderate right and small left effusions. No pneumothorax. Signed: Mandy Chairez MDReport Verified Date/Time: 08/02/2018 11:24:33 Reading Location: [address] Ortho Consult Reading Room BASIC METABOLIC [id number] 02:55:00 Test Item Value Reference Range Interpretation [...] S NOT APPLICABLE FOR DIALYSIS PATIEN TS. [id number] 02:39:00 Test Item Value Reference Range Interpretation Comments PARTIAL THROMBOPLASTIN TIME 51.6 seconds 22.5-36.0 H (BEAKER) (test code = 760) CBC W/PLT COUNT & AUTO [id number] 02:30:00 Test Item Value Reference Range Interpretation [...] = 2801) BODY FLUID CELL COUNT WITH [id number] 21:13:00 Test Item Value Reference Range Interpretation Comments APPEARANCE FLUID (BEAKER) (test Bloody Clear A code = 510) COLOR FLUID (BEAKER) (test code Sunil Colorless, Straw A = 511) RBC FLUID (BEAKER) (test code = 36215 /cu mm <=1 H 513) ADJUSTED WBC [...] Tube (test code = 2873) ALBUMIN, BODY [id number] 20:00:00 Test Item Value Reference Range Interpretation Comments ALBUMIN FLUID (BEAKER) (test code = 2.1 gm/dL 501) Reference Range: No Normals Assay performance has not been validated for this type of specimen.LACTATE DEHYDROGENASE (LDH), BODY [id number] 20:00:00 Test Item Value Reference Range Interpretation [...] of specimen.RAD, CHEST, PA OR AP, 1 [id number] 17:08:00Ultrasound Room 1Reason for exam:->s/p Right sided [...] seen in the spine. Signed: Alonso Vail Verified Date/Time: 08/01/2018 17:08:13 Reading Location: [facility] Radiology Reading Room U/S, [id number] 17:03:00 Laterality?->RightReason for exam:->large pleural effusionFINAL REPORT HISTORY: Right pleural effusion Following informed written consent, the patient's right posterior chest wall was prepped and draped in the usual sterile manner. 2% lidocaine was given locally for anesthesia. No conscious sedation was administered. Vital signs were monitored and remained stable. Using ultrasound guidance and a 5 Prydeinig angiocatheter, access was gain ed to the [...] Seymour Verified Date/Time: 08/01/2018 17:03:15 Reading Location: [facility] P006 Ultrasound Reading Room RAD, CHEST, 1 VIEW, NON [id number] 12:40:00Reason for exam:->pleural effusion; shortness of breathShould [...] MDReport Verified Date/Time: 08/01/2018 12:40:42 Reading Location: [facility] Radiology Reading Room APTT 2018-08-01 11:33:00 Test Item Value Reference Range Interpretation Comments PARTIAL THROMBOPLASTIN TIME 118.1 seconds 22.5-36.0 H (BEAKER) (test code = 760) BASIC METABOLIC [id number] 02:07:00 Test Item Value Reference Range Interpretation [...] S NOT APPLICABLE FOR DIALYSIS PATIEN TS. [id number] 01:55:00 Test Item Value Reference Range Interpretation [...] is 2.5-3.5 for patients with mechanical heart valves.[id number] 01:55:00 Test Item Value Reference Range Interpretation Comments PARTIAL THROMBOPLASTIN TIME 96.8 seconds 22.5-36.0 H (BEAKER) (test code = 760) CBC W/PLT COUNT & AUTO [id number] 01:38:00 Test Item Value Reference Range Interpretation [...] 0-1 PERCENT (BEAKER) (test code = 2801) [id number] 18:58:00 Test Item Value Reference Range Interpretation Comments PARTIAL THROMBOPLASTIN TIME 61.7 seconds 22.5-36.0 H (BEAKER) (test code = 760) [id number] 09:22:00 Test Item Value Reference Range Interpretation Comments PARTIAL THROMBOPLASTIN TIME 61.5 seconds 22.5-36.0 H (BEAKER) (test code = 760) BASIC METABOLIC [id number] 02:14:00 Test Item Value Reference Range Interpretation [...] S NOT APPLICABLE FOR DIALYSIS PATIEN TS. [id number] 01:43:00 Test Item Value Reference Range Interpretation [...] is 2.5-3.5 for patients with mechanical heart valves.[id number] 01:43:00 Test Item Value Reference Range Interpretation Comments PARTIAL THROMBOPLASTIN TIME 62.7 seconds 22.5-36.0 H (BEAKER) (test code = 760) CBC W/PLT COUNT & AUTO [id number] 01:32:00 Test Item Value Reference Range Interpretation [...] 0-1 PERCENT (BEAKER) (test code = 2801) [id number] 18:38:00 Test Item Value Reference Range Interpretation Comments PARTIAL THROMBOPLASTIN TIME 38.9 seconds 22.5-36.0 H (BEAKER) (test code = 760) Prior to initiating heparinPLATELET [id number] 18:17:00 Test Item Value Reference Range Interpretation Comments PLATELET COUNT (BEAKER) (test 115 K/CU MM 150-450 L code = 756) RAD, CHEST, 2 [id number] 18:05:00Reason for exam:->sob and pleural effusionFINAL REPORT [...] Sykes MDReport Verified Date/Time: 07/30/2018 18:05:46Reading Location: [facility] C METABOLIC [id number] 05:26:00 Test Item Value Reference Range Interpretation [...] S NOT APPLICABLE FOR DIALYSIS PATIEN TS. [id number] 05:25:00 Test Item Value Reference Range Interpretation [...] 2.5-3.5 for patients with mechanical heart valves.PROTHROMBIN TIME/[id number] 05:24:00 Test Item Value Reference Range Interpretation [...] (test code = 2801) HEPATITIS B SURFACE [id number] 12:09:00 Test Item Value Reference Range Interpretation Comments HEPATITIS B SURFACE ANTIGEN (2) Nonreactive Nonreactive (BEAKER) (test code = 2585) POCT-GLUCOSE [id number] 07:50:00 Test Item Value Reference Range Interpretation Comments POC-GLUCOSE METER 93 mg/dL 70-110 TESTED AT [facility] 6720 (BEAKER) (test code = FOSTER Paul [facility] [address] 1538) [id number] 04:59:00 Test Item Value Reference Range Interpretation [...] for patients with mechanical heart valves.BASIC METABOLIC [id number] 04:59:00 Test Item Value Reference Range Interpretation [...] PATIEN TS. CBC W/PLT COUNT & AUTO [id number] 04:51:00 Test Item Value Reference Range Interpretation [...] (test code = 2801) AFB CULTURE + [id number] 16:13:00 Test Item Value Reference Range Interpretation Comments CULTURE (BEAKER) (test No acid-fast bacilli code = 1095) isolated in 42 days AFB SMEAR (BEAKER) No acid fast bacilli (test code = 994) seen AFB CULTURE + [id number] 16:13:00 Test Item Value Reference Range Interpretation Comments CULTURE (BEAKER) (test No acid-fast bacilli code = 1095) isolated in 42 days AFB SMEAR (BEAKER) No acid fast bacilli (test code = 994) seen FUNGUS CULTURE + [id number] 07:13:00 Test Item Value Reference Range Interpretation Comments CULTURE (BEAKER) (test No fungus isolated in code = 1095) 28 days FUNGUS SMEAR (BEAKER) No fungi seen (test code = 1406) FUNGUS CULTURE + [id number] 07:13:00 Test Item Value Reference Range Interpretation Comments CULTURE (BEAKER) (test No fungus isolated in code = 1095) 28 days FUNGUS SMEAR ([facility]) No fungi seen (test code = 1406) TISSUE [id number] 19:17:00Surgical Pathology Report Case: [id number] Authorizing Provider: Juliana Martinez MD Collected: 05/23/2018 0825 Ordering Location: [facility] PERIOPERATIVE Received: 05/23/2018 0923 SERVICES Pathologist: Brigida Parks MD Specimen: SoftTissue, Other, LEFT GROIN - TISSUE BIOPSY SKIN AND SOFT TISSUE,GROIN,LEFT, BIOPSY: - ABSCESSES, GRANULOMAS AND CHRONIC INFLAMMATION - NEGATIVE FOR DYSPLASIA OR MALIGNANCY - AFB AND GMS STAINS ARE NEGATIVE (SEE COMMENT) Signing Pathologist Direct Phone Line: [phone] signed by Brigida Parks MD on 06/02/2018 at 7:17 PMCorrelation with culture studies is recommended.[id number] abscess groinLeft groin tissue biopsyReceived fresh labeled "soft tissue, other", description "left groin tissue biopsy" are two dark-porter, wrinkled,hair- bearing strips of skin measuring 1.5 and 2.6 cm in length, 0.3 cm in diameter and excised to a depth of 0.3 cm.Sectioning reveals no discrete masses.The specimen is entirely submitted in cassettesA1. DB/ewPOCT-GLUCOSE [id number] 08:51:00 Test Item Value Reference Range Interpretation Comments POC-GLUCOSE METER 101 mg/dL 70-110 TESTED AT [facility] 6720 ([facility]) (test code = [place] 1538) [address] CBC W/PLT COUNT & AUTO [id number] 06:01:00 Test Item Value Reference Range Interpretation Comments WHITE BLOOD CELL COUNT (AKER) 7.1 K/ L 3.5-10.5 (test code = 775) RED BLOOD CELL COUNT (AKER) 3.50 M/ L 4.63-6.08 L (test code = 761) HEMOGLOBIN (BEAKER) (test code = 10.7 GM/DL 13.7-17.5 L 410) HEMATOCRIT ([facility]) (test code = 33.4 % 40.1-51.0 L [...] PERCENT (BEAKER) (test code = 2801) PROTHROMBIN [id number] 05:51:00 Test Item Value Reference Range Interpretation Comments PROTIME (BEAKER) (test code = 25.9 seconds 11.7-14.7 H 759) INR (BEAKER) (test code = 370) 2.4 <=5.9 RECOMMENDED COUMADIN/WARFARIN INR THERAPY RANGESSTANDARD DOSE: 2.0 - 3.0 Includes: PROPHYLAXIS forvenous thrombosis, systemic embolization; TREATMENT for venous thrombosis and/or pulmonary embolus.HIGH RISK: Target INR is 2.5-3.5 for patients with mechanical heart valves.BASIC METABOLIC [id number] 05:46:00 Test Item Value Reference Range Interpretation [...] NOT APPLICABLE FOR DIALYSIS PATIEN TS. POCT-GLUCOSE [id number] 20:34:00 Test Item Value Reference Range Interpretation Comments POC-GLUCOSE METER 261 mg/dL 70-110 H TESTED AT [place] [address] ([facility]) (test code = [facility] 1538) [address] POCT-GLUCOSE [id number] 18:12:00 Test Item Value Reference Range Interpretation Comments POC-GLUCOSE METER 139 mg/dL 70-110 H TESTED AT [place] [address] ([facility]) (test code = [facility] 1538) [address] POCT-GLUCOSE [id number] 11:51:00 Test Item Value Reference Range Interpretation Comments POC-GLUCOSE METER 147 mg/dL 70-110 H TESTED AT [place] [address] ([facility]) (test code = [facility] 1538) [address] POCT-GLUCOSE [id number] 08:42:00 Test Item Value Reference Range Interpretation Comments POC-GLUCOSE METER 104 mg/dL 70-110 TESTED AT [place] [address] ([facility]) (test code = [facility] 1538) [address] CBC W/PLT COUNT & AUTO [id number] 06:56:00 Test Item Value Reference Range Interpretation [...] (BEAKER) (test code = 2801) BASIC METABOLIC [id number] 06:49:00 Test Item Value Reference Range Interpretation [...] NOT APPLICABLE FOR DIALYSIS PATIEN TS. PROTHROMBIN [id number] 06:46:00 Test Item Value Reference Range Interpretation Comments PROTIME (BEAKER) (test code = 26.9 seconds 11.7-14.7 H 759) INR (BEAKER) (test code = 370) 2.5 <=5.9 RECOMMENDED COUMADIN/WARFARIN INR THERAPY RANGESSTANDARD DOSE: 2.0 - 3.0 Includes: PROPHYLAXIS forvenous thrombosis, systemic embolization; TREATMENT for venous thrombosis and/or pulmonary embolus.HIGH RISK: Target INR is 2.5-3.5 for patients with mechanical heart valves.ANAEROBIC [id number] 00:38:00 Test Item Value Reference Range Interpretation Comments CULTURE (BEAKER) (test No anaerobes isolated code = 1095) ANAEROBIC [id number] 00:38:00 Test Item Value Reference Range Interpretation Comments CULTURE (BEAKER) (test No anaerobes isolated code = 1095) POCT-GLUCOSE [id number] 20:43:00 Test Item Value Reference Range Interpretation Comments POC-GLUCOSE METER 124 mg/dL 70-110 H TESTED AT [facility] 67 ([facility]) (test code = [place] [facility] 1538) [address] POCT-GLUCOSE [id number] 17:17:00 Test Item Value Reference Range Interpretation Comments POC-GLUCOSE METER 190 mg/dL 70-110 H TESTED AT [facility] 67 ([facility]) (test code = [place] Paul [facility] 1538) [address] POCT-GLUCOSE [id number] 11:54:00 Test Item Value Reference Range Interpretation Comments POC-GLUCOSE METER 195 mg/dL 70-110 H TESTED AT [facility] 67 ([facility]) (test code = [place] [facility] 1538) [address] C. DIFFICILE GDH [id number] 11:16:00 Test Item Value Reference Range Interpretation Comments CDT TOXIN (test code Negative Negative = [id number]) CDT GDH ANTIGEN (test Negative Negative No ind ication of code = [id number]) Clostridi um difficile infection and n o colonization. Discontinue ent kenrick isolation and t herapy. Testing performed by [employer] Rapid Cassette Assay. For GDH, published sensitivity of the assay is 98.7% compared to cytotoxicity testing. For Toxin AB, published sensitivity is 87.8% and specificity 99.4% compared to cytotoxicity testing.Verification of kit performance was done by the [facility] Microbiology Lab prior to clinical use.SURGICALLY OBTAINED CULTURE + GRAM [id number] 09:22:00 Test Item Value Reference Interpretation Comments Range CULTURE (AKER) COAGULASE NEGATIVE A <1+ C oagulase (test [...] = 13) GRAM STAIN RESULT 1+ WBCs (AKER) (test code = 1123) GRAM STAIN RESULT No organisms seen (AKER) (test code = 276000) SURGICALLY OBTAINED CULTURE + GRAM [id number] 09:20:00 Test Item Value Reference Range Interpretation Comments CULTURE (BEAKER) (test code No growth = 1095) GRAM STAIN RESULT (BEAKER) 4+ WBCs (test code = 1123) GRAM STAIN RESULT (BEAKER) No organisms seen (test code = 10979) POCT-GLUCOSE [id number] 08:21:00 Test Item Value Reference Range Interpretation Comments POC-GLUCOSE METER 101 mg/dL 70-110 TESTED AT [facility] 6720 (BEAKER) (test code = [place] Paul [facility] 1538) [address] BASIC METABOLIC [id number] 07:57:00 Test Item Value Reference Range Interpretation [...] NOT APPLICABLE FOR DIALYSIS PATIEN TS. PROTHROMBIN [id number] 06:36:00 Test Item Value Reference Range Interpretation [...] PERCENT (BEAKER) (test code = 2801) POCT-GLUCOSE [id number] 21:40:00 Test Item Value Reference Range Interpretation Comments POC-GLUCOSE METER 176 mg/dL 70-110 H TESTED AT [facility] 67 [facility] (test code = [place] [facility] 1538) [address] POCT-GLUCOSE [id number] 16:07:00 Test Item Value Reference Range Interpretation Comments POC-GLUCOSE METER 120 mg/dL 70-110 H TESTED AT [place] [address] ([facility]) (test code = [facility] Humberto [facility] 1538) [address] POCT-GLUCOSE [id number] 08:31:00 Test Item Value Reference Range Interpretation Comments POC-GLUCOSE METER 119 mg/dL 70-110 H TESTED AT [place] [address] ([facility]) (test code = [facility] 1538) [address] BASIC METABOLIC [id number] 08:19:00 Test Item Value Reference Range Interpretation [...] APPLICABLE FOR DIALYSIS PATIEN TS. VANCOMYCIN LEVEL, [id number] 08:16:00 Test Item Value Reference Range Interpretation Comments VANCOMYCIN RANDOM (BEAKER) (test 17.6 ug/mL code = 523) Reference Range: No NormalsPROTHROMBIN [id number] 07:21:00 Test Item Value Reference Range Interpretation [...] PERCENT (BEAKER) (test code = 2801) BLOOD [id number] 06:00:00 Test Item Value Reference Range Interpretation Comments CULTURE (BEAKER) (test No growth in 5 days code = 1095) BLOOD [id number] 00:00:00 Test Item Value Reference Range Interpretation Comments CULTURE (BEAKER) (test No growth in 5 days code = 1095) POCT-GLUCOSE [id number] 22:05:00 Test Item Value Reference Range Interpretation Comments POC-GLUCOSE METER 169 mg/dL 70-110 H TESTED AT [facility] 67 [facility] (test code = [facility] 1538) [address] POCT-GLUCOSE [id number] 18:20:00 Test Item Value Reference Range Interpretation Comments POC-GLUCOSE METER 110 mg/dL 70-110 TESTED AT [place] [address] ([facility] (test code = [facility] 1538) [address] POCT-GLUCOSE [id number] 17:17:00 Test Item Value Reference Range Interpretation Comments POC-GLUCOSE METER 99 mg/dL 70-110 TESTED AT [place] [address] ([facility] (test code = [facility] [address] 1538) SPIN/CONCENTRATION [id number] 14:49:00 Test Item Value Reference Range Interpretation Comments CONCENTRATION CHARGED (BEAKER) (test Done code = 2657) SPIN/CONCENTRATION [id number] 14:49:00 Test Item Value Reference Range Interpretation Comments [facility]EN[facility]ATION CHARGED ([facility] (test Done code = 2657) POCT-GLUCOSE [id number] 12:13:00 Test Item Value Reference Range Interpretation Comments POC-GLUCOSE METER 188 mg/dL 70-110 H TESTED AT [place] [address] ([facility]) (test code = [facility] 1538) [address] BASIC METABOLIC [id number] 09:56:00 Test Item Value Reference Range Interpretation [...] NOT APPLICABLE FOR DIALYSIS PATIEN TS. POCT-GLUCOSE [id number] 07:45:00 Test Item Value Reference Range Interpretation Comments POC-GLUCOSE METER 108 mg/dL 70-110 TESTED AT [place] [address] ([facility]) (test code = [facility] 1538) [address] CBC W/PLT COUNT & AUTO [id number] 07:00:00 Test Item Value Reference Range Interpretation [...] PERCENT (BEAKER) (test code = 2801) PROTHROMBIN [id number] 06:47:00 Test Item Value Reference Range Interpretation Comments PROTIME (BEAKER) (test code = 20.7 seconds 11.7-14.7 H 759) INR (BEAKER) (test code = 370) 1.8 <=5.9 RECOMMENDED COUMADIN/WARFARIN INR THERAPY RANGESSTANDARD DOSE: 2.0 - 3.0 Includes: PROPHYLAXIS forvenous thrombosis, systemic embolization; TREATMENT for venous thrombosis and/or pulmonary embolus.HIGH RISK: Target INR is 2.5-3.5 for patients with mechanical heart valves.POCT-GLUCOSE [id number] 20:42:00 Test Item Value Reference Range Interpretation Comments POC-GLUCOSE METER 134 mg/dL 70-110 H TESTED AT [place] [address] ([facility]) (test code = [facility] 1538) [address] POCT-GLUCOSE [id number] 13:29:00 Test Item Value Reference Range Interpretation Comments POC-GLUCOSE METER 209 mg/dL 70-110 H TESTED AT [place] [address] ([facility]) (test code = [facility] 1538) [address] POCT-GLUCOSE [id number] 08:53:00 Test Item Value Reference Range Interpretation Comments POC-GLUCOSE METER 103 mg/dL 70-110 TESTED AT [place] [address] ([facility]) (test code = [facility] 1538) [address] BASIC METABOLIC [id number] 07:47:00 Test Item Value Reference Range Interpretation [...] DIALYSIS PATIEN TS. WOUND CULTURE + GRAM [id number] 07:44:00 Test Item Value Reference Range Interpretation Comments CULTURE (BEAKER) (test code No growth = 1095) GRAM STAIN RESULT (BEAKER) No WBCs (test code = 1123) GRAM STAIN RESULT (BEAKER) No organisms seen (test code = 29623) [id number] 07:38:00 Test Item Value Reference Range Interpretation Comments PHOSPHORUS (BEAKER) (test code = 3.2 mg/dL 2.3-4.7 604) CBC W/PLT COUNT & AUTO [id number] 06:35:00 Test Item Value Reference Range Interpretation [...] PERCENT (BEAKER) (test code = 2801) PROTHROMBIN [id number] 06:32:00 Test Item Value Reference Range Interpretation Comments PROTIME (BEAKER) (test code = 23.2 seconds 11.7-14.7 H 759) [facility] (test code = 370) 2.1 <=5.9 RECOMMENDED COUMADIN/WARFARIN INR THERAPY RANGESSTANDARD DOSE: 2.0 - 3.0 Includes: PROPHYLAXIS forvenous thrombosis, systemic embolization; TREATMENT for venous thrombosis and/or pulmonary embolus.HIGH RISK: Target INR is 2.5-3.5 for patients with mechanical heart valves.POCT-GLUCOSE [id number] 21:21:00 Test Item Value Reference Range Interpretation Comments POC-GLUCOSE METER 177 mg/dL 70-110 H TESTED AT [place] [address] ([facility]) (test code = [facility] 1538) 120[address] POCT-GLUCOSE [id number] 17:53:00 Test Item Value Reference Range Interpretation Comments POC-GLUCOSE METER 89 mg/dL 70-110 TESTED AT [place] [address] ([facility]) (test code = [facility] [address] 1538) IRON, TIBC, % SAT. (WITHOUT FERRITIN)[id number] 17:45:00 Test Item Value Reference Range Interpretation Comments IRON (BEAKER) (test code = 547) 63 ug/dL 40-160 TOTAL IRON BINDING CAPACITY 203 ug/dL 250-450 L (AKER) (test code = 769) IRON % SATURATION (2) (BEAKER) 31 % 20-55 (test code = 2590) [id number] 16:07:00 Test Item Value Reference Range Interpretation Comments PHOSPHORUS (BEAKER) (test code = 5.4 mg/dL 2.3-4.7 H 604) POCT-GLUCOSE [id number] 12:41:00 Test Item Value Reference Range Interpretation Comments POC-GLUCOSE METER 110 mg/dL 70-110 TESTED AT [facility] 6720 (BEAKER) (test code = [facility] 1538) [address] POCT-GLUCOSE [id number] 07:00:00 Test Item Value Reference Range Interpretation Comments POC-GLUCOSE METER 159 mg/dL 70-110 H TESTED AT [facility] 67 (BEAKER) (test code = [facility] 1538) [address] BASIC METABOLIC [id number] 05:19:00 Test Item Value Reference Range Interpretation [...] S NOT APPLICABLE FOR DIALYSIS PATIEN TS. [id number] 05:18:00 Test Item Value Reference Range Interpretation Comments MAGNESIUM (BEAKER) (test code = 1.9 mg/dL 1.6-2.6 627) PROTHROMBIN [id number] 05:03:00 Test Item Value Reference Range Interpretation [...] PERCENT (BEAKER) (test code = 2801) POCT-GLUCOSE [id number] 23:35:00 Test Item Value Reference Range Interpretation Comments POC-GLUCOSE METER 190 mg/dL 70-110 H TESTED AT [facility] 6720 ([facility]) (test code = [place] [facility] 1538) 137[address] POCT-GLUCOSE [id number] 17:16:00 Test Item Value Reference Range Interpretation Comments POC-GLUCOSE METER 122 mg/dL 70-110 H TESTED AT [facility] 6720 ([facility]) (test code = [place] Paul [facility] 1538) [address] U/S, TESTICULAR (SCROTUM)2018-05-21 14:53:00Reason for exam:->testicular swellingFINAL [...] MDReport Verified Date/Time: 05/21/2018 14:53:00 Reading Location: [place] [id number] UltrasoundReading Room POCT- GLUCOSE [id number] 11:22:00 Test Item Value Reference Range Interpretation Comments POC-GLUCOSE METER 144 mg/dL 70-110 H TESTED AT [facility] 6720 (BEAKER) (test code = [facility] 1538) [address] POCT-GLUCOSE [id number] 07:05:00 Test Item Value Reference Range Interpretation Comments POC-GLUCOSE METER 171 mg/dL 70-110 H TESTED AT [facility] 6720 (BEAKER) (test code = [facility] 1538) 14070 BASIC METABOLIC [id number] 06:19:00 Test Item Value Reference Range Interpretation [...] S NOT APPLICABLE FOR DIALYSIS PATIEN TS. [id number] 06:04:00 Test Item Value Reference Range Interpretation Comments MAGNESIUM (BEAKER) (test code = 1.9 mg/dL 1.6-2.6 627) PROTHROMBIN [id number] 05:31:00 Test Item Value Reference Range Interpretation [...] PERCENT (AKER) (test code = 2801) POCT-GLUCOSE [id number] 21:29:00 Test Item Value Reference Range Interpretation Comments POC-GLUCOSE METER 156 mg/dL 70-110 H TESTED AT [place] [address] ([facility]) (test code = [facility] 1538) [address] POCT-GLUCOSE [id number] 18:14:00 Test Item Value Reference Range Interpretation Comments POC-GLUCOSE METER 93 mg/dL 70-110 TESTED AT [place] [address] ([facility]) (test code = [facility] [address] 1538) PROTHROMBIN [id number] 13:26:00 Test Item Value Reference Range Interpretation Comments PROTIME ([facility]) (test code = 42.0 seconds 11.7-14.7 H 759) INR ([facility]) (test code = 370) 4.4 <=5.9 RECOMMENDED COUMADIN/WARFARIN INR THERAPY RANGESSTANDARD DOSE: 2.0 - 3.0 Includes: PROPHYLAXIS forvenous thrombosis, systemic embolization; TREATMENT for venous thrombosis and/or pulmonary embolus.HIGH RISK: Target INR is 2.5-3.5 for patients with mechanical heart valves.LACTIC ACID, VENOUS, WHOLE [id number] 13:18:00 Test Item Value Reference Range Interpretation Comments LACTATE BLOOD VENOUS (2) ([facility]) 0.8 mmol/L 0.5-2.2 (test code = 7032) Effective 01/04/2016: Units/Reference Range ChangeNew: 0.5-2.2 mmol/L Previous: 5-20 mg/dLPOCT-GLUCOSE [id number] 12:04:00 Test Item Value Reference Range Interpretation Comments POC-GLUCOSE METER 111 mg/dL 70-110 H TESTED AT [facility] 6720 (BEAKER) (test code = [place] 1538) [address] CD4 T CELL [id number] 12:04:00 Test Item Value Reference Range Interpretation Comments CD4/CD8 RATIO FC (BEAKER) (test code = 0.76 0.70-3.23 8987) HEPATITIS B SURFACE [id number] 11:32:00 Test Item Value Reference Range Interpretation Comments HEPATITIS B SURFACE ANTIGEN (2) Nonreactive Nonreactive (BEAKER) (test code = 2585) VANCOMYCIN LEVEL, [id number] 11:10:00 Test Item Value Reference Range Interpretation Comments VANCOMYCIN RANDOM (BEAKER) (test 20.7 ug/mL code = 523) Reference Range: No NormalsBASIC METABOLIC [id number] 09:19:00 Test Item Value Reference Range Interpretation [...] S NOT APPLICABLE FOR DIALYSIS PATIEN TS. [id number] 09:16:00 Test Item Value Reference Range Interpretation Comments MAGNESIUM (BEAKER) (test code = 2.1 mg/dL 1.6-2.6 627) RAD, CHEST, 1 VIEW, NON [id number] 07:56:00Reason for exam:->pleural effusion seen on outside hospital imagingShould this be performed at the bedside?->YesFINAL REPORT Chest one view compared to February 23 Discussion: Small effusions are similar. Replaced cardiac valve and atrial appendage clip noted. No pneumothorax. Unchanged cardiac pulmonary appearance. Signed: Rhea Colindres Verified Date/Time: 05/20/2018 07:56:50 Reading Location: [facility] Radiology Reading Room POCT-GLUCOSE [id number] 07:32:00 Test Item Value Reference Range Interpretation Comments POC-GLUCOSE METER 105 mg/dL 70-110 TESTED AT [facility] 6720 ([facility]) (test code = [place] Paul [facility] 1538) [address] CBC W/PLT COUNT & AUTO [id number] 07:01:00 Test Item Value Reference Range Interpretation [...] (BEAKER) (test code = 2801) VANCOMYCIN LEVEL, [id number] 22:39:00 Test Item Value Reference Range Interpretation Comments VANCOMYCIN RANDOM (BEAKER) (test 22.0 ug/mL code = 523) Reference Range: No NormalsCOMPREHENSIVE METABOLIC [id number] 22:39:00 Test Item Value Reference Range Interpretation [...] S NOT APPLICABLE FOR DIALYSIS PATIEN TS. [id number] 22:38:00 Test Item Value Reference Range Interpretation Comments PHOSPHORUS (BEAKER) (test code = 4.5 mg/dL 2.3-4.7 604) [id number] 22:38:00 Test Item Value Reference Range Interpretation Comments MAGNESIUM (BEAKER) (test code = 2.0 mg/dL 1.6-2.6 627) [id number] 22:29:00 Test Item Value Reference Range Interpretation Comments PARTIAL THROMBOPLASTIN TIME 45.0 seconds 22.5-36.0 H (BEAKER) (test code = 760) PROTHROMBIN [id number] 22:28:00 Test Item Value Reference Range Interpretation Comments PROTIME (BEAKER) (test code = 48.1 seconds 11.7-14.7 H 759) INR (BEAKER) (test code = 370) 5.2 <=5.9 RECOMMENDED COUMADIN/WARFARIN INR THERAPY RANGESSTANDARD DOSE: 2.0 - 3.0 Includes: PROPHYLAXIS forvenous thrombosis, systemic embolization; TREATMENT for venous thrombosis and/or pulmonary embolus.HIGH RISK: Target INR is 2.5-3.5 for patients with mechanical heart valves.POCT-GLUCOSE [id number] 21:38:00 Test Item Value Reference Range Interpretation Comments POC-GLUCOSE METER 105 mg/dL 70-110 TESTED AT [facility] 6720 (JARROD) (test code = [place] 1533) [address] XR Ankle Complete 3+ Views [id number] 22:30:07Patient: CALEB LUGO Date/Time05/12/2018 22:24 CDTReason for [...] Signature): 05/12/2018 10:30 pmXR Chest 1 View [id number] 09:48:17Patient: CALEB LUGO Date/Time05/12/2018 09:30 CDTReason for [...] FSigned (Electronic Signature): 05/12/2018 9:48 amBASIC METABOLIC [id number] 11:15:00 Test Item Value Reference Range Interpretation Comments SODIUM (JARROD) 139 meq/L 136-145 (test code = 381) [...] (BEAKER) (test code = 700) BASIC METABOLIC [id number] 02:55:00 Test Item Value Reference Range Interpretation [...] H (BEAKER) (test code = 700) TROPONIN [id number] 02:30:00 Test Item Value Reference Range Interpretation [...] failure, acidosis, acute neurological disease, and persistent tachyarrhythmia.[id number] 02:21:00 Test Item Value Reference Range Interpretation Comments MAGNESIUM (BEAKER) (test code = 1.8 mg/dL 1.6-2.6 627) CBC W/PLT COUNT & AUTO [id number] 00:24:00 Test Item Value Reference Range Interpretation [...] 0-1 PERCENT (BEAKER) (test code = 2801) [id number] 00:01:00 Test Item Value Reference Range Interpretation [...] mechanical heart valves.RAD, CHEST, 1 VIEW, NON [id number] 23:39:00Reason for exam:->chest painShould this be performed [...] [place] Verified Date/Time: 02/23/2018 23:39:58 Reading Location: [address] Reading Room POCT-GLUCOSE [id number] 19:47:00 Test Item Value Reference Range Interpretation Comments POC-GLUCOSE METER 94 mg/dL 70-110 TESTED AT [place] [address] ([facility]) (test code = [facility] [address] 1538) POCT-GLUCOSE [id number] 17:07:00 Test Item Value Reference Range Interpretation Comments POC-GLUCOSE METER 176 mg/dL 70-110 H TESTED AT [place] [address] ([facility]) (test code = [facility] 1538) [address] POCT-GLUCOSE [id number] 12:31:00 Test Item Value Reference Range Interpretation Comments POC-GLUCOSE METER 84 mg/dL 70-110 TESTED AT [place] [address] ([facility]) (test code = [facility] [address] 1538) [id number] 10:40:00 Test Item Value Reference Range Interpretation Comments PARTIAL THROMBOPLASTIN TIME 88.5 seconds 22.5-36.0 H ([facility]) (test code = 760) OCCULT BLOOD, [id number] 09:36:00 Test Item Value Reference Range Interpretation Comments FECAL OCCULT BLOOD ([facility]) (test Negative Negative code = 618) POCT-GLUCOSE [id number] 08:51:00 Test Item Value Reference Range Interpretation Comments POC-GLUCOSE METER 223 mg/dL 70-110 H TESTED AT [place] [id number] ([facility]) (test code = [facility] 1538) [id number] 04:14:00 Test Item Value Reference Range Interpretation Comments PARTIAL THROMBOPLASTIN TIME 80.3 seconds 22.5-36.0 H ([facility]) (test code = 760) While on warfarin.PROTHROMBIN [id number] 04:13:00 Test Item Value Reference Range Interpretation Comments PROTIME ([facility]) (test code = 23.8 seconds 11.7-14.7 H 759) INR ([facility]) (test code = 370) 2.1 <=5.9 RECOMMENDED COUMADIN/WARFARIN INR THERAPY RANGESSTANDARD DOSE: 2.0 - 3.0 Includes: PROPHYLAXIS forvenous thrombosis, systemic embolization; TREATMENT for venous thrombosis and/or pulmonary embolus.HIGH RISK: Target INR is 2.5-3.5 for patients with mechanical heart valves.While on warfarin.POCT-GLUCOSE METER 2018-02-02 21:56:00 Test Item Value Reference Range Interpretation Comments POC-GLUCOSE METER 206 mg/dL 70-110 H TESTED AT [place] [address] ([facility]) (test code = FOSTER Paul [facility] 1538) [address] [id number] 19:50:00 Test Item Value Reference Range Interpretation Comments PARTIAL THROMBOPLASTIN TIME 59.7 seconds 22.5-36.0 H ([facility]) (test code = 760) POCT-GLUCOSE [id number] 17:00:00 Test Item Value Reference Range Interpretation Comments POC-GLUCOSE METER 183 mg/dL 70-110 H TESTED AT [place] [address] ([facility]) (test code = FOSTER Paul [facility] 1538) [address] [id number] 12:45:00 Test Item Value Reference Range Interpretation Comments PARTIAL THROMBOPLASTIN TIME 89.5 seconds 22.5-36.0 H ([facility]) (test code = 760) CBC W/PLT COUNT & AUTO [id number] 12:04:00 Test Item Value Reference Range Interpretation Comments WHITE BLOOD CELL COUNT ([facility]) 4.8 K/ L 3.5-10.5 (test code = 775) RED BLOOD CELL COUNT ([facility]) 2.46 M/ L 4.63-6.08 L (test code = 761) HEMOGLOBIN ([facility]) (test code = 7.5 GM/DL 13.7-17.5 L 410) HEMATOCRIT ([facility]) (test code = 24.2 % 40.1-51.0 L [...] code = 754) NUCLEATED RED BLOOD CELLS (AKER) 0 /100 WBC 0-0 (test code = 413) POCT-GLUCOSE [id number] 11:54:00 Test Item Value Reference Range Interpretation Comments POC-GLUCOSE METER 124 mg/dL 70-110 H TESTED AT [place] [address] ([facility]) (test code = FOSTER [place] 1538) [address] POCT-GLUCOSE [id number] 07:48:00 Test Item Value Reference Range Interpretation Comments POC-GLUCOSE METER 178 mg/dL 70-110 H TESTED AT [place] [address] ([facility]) (test code = F[place]ER [place] 1538) [address] BASIC METABOLIC [id number] 05:15:00 Test Item Value Reference Range Interpretation [...] S NOT APPLICABLE FOR DIALYSIS PATIEN TS. [id number] 04:51:00 Test Item Value Reference Range Interpretation Comments MAGNESIUM (BEAKER) (test code = 1.8 mg/dL 1.6-2.6 627) [id number] 04:36:00 Test Item Value Reference Range Interpretation Comments PARTIAL THROMBOPLASTIN TIME 91.9 seconds 22.5-36.0 H (BEAKER) (test code = 760) While on warfarin.PROTHROMBIN [id number] 04:34:00 Test Item Value Reference Range Interpretation [...] METER 126 mg/dL 70-110 H TESTED AT [facility] 67 ([facility]) (test code = FOSTER Paul [facility] 1538) [address] [id number] 21:23:00 Test Item Value Reference Range Interpretation Comments PARTIAL THROMBOPLASTIN TIME 84.1 seconds 22.5-36.0 H ([facility]) (test code = 760) POCT-GLUCOSE [id number] 16:57:00 Test Item Value Reference Range Interpretation Comments POC-GLUCOSE METER 156 mg/dL 70-110 H TESTED AT [facility] 67 ([facility]) (test code = [facility] Humberto [facility] 1538) [address] [id number] 14:11:00 Test Item Value Reference Range Interpretation Comments PARTIAL THROMBOPLASTIN TIME 96.5 seconds 22.5-36.0 H ([facility]) (test code = 760) POCT-GLUCOSE [id number] 08:24:00 Test Item Value Reference Range Interpretation Comments POC-GLUCOSE METER 169 mg/dL 70-110 H TESTED AT [facility] 67 ([facility]) (test code = FOSTER Paul [place] 1538) [address] POCT-GLUCOSE [id number] 06:49:00 Test Item Value Reference Range Interpretation Comments POC-GLUCOSE METER 172 mg/dL 70-110 H TESTED AT [facility] 67 ([facility]) (test code = FOSTER Paul [place] 1538) [address] [id number] 04:59:00 Test Item Value Reference Range Interpretation Comments PARTIAL THROMBOPLASTIN TIME 64.7 seconds 22.5-36.0 H ([facility]) (test code = 760) While on warfarin.PROTHROMBIN [id number] 04:57:00 Test Item Value Reference Range Interpretation Comments PROTIME ([facility]) (test code = 17.5 seconds 11.7-14.7 H 759) INR ([facility]) (test code = 370) 1.4 <=5.9 RECOMMENDED COUMADIN/WARFARIN INR THERAPY RANGESSTANDARD DOSE: 2.0 - 3.0 Includes: PROPHYLAXIS forvenous thrombosis, systemic embolization; TREATMENT for venous thrombosis and/or pulmonary embolus.HIGH RISK: Target INR is 2.5-3.5 for patients with mechanical heart valves.While on warfarin.[id number] 21:55:00 Test Item Value Reference Range Interpretation Comments PARTIAL THROMBOPLASTIN TIME 68.8 seconds 22.5-36.0 H ([facility]) (test code = 760) [id number] 13:54:00 Test Item Value Reference Range Interpretation Comments PARTIAL THROMBOPLASTIN TIME 51.7 seconds 22.5-36.0 H ([facility]) (test code = 760) POCT-GLUCOSE [id number] 11:56:00 Test Item Value Reference Range Interpretation Comments POC-GLUCOSE METER 101 mg/dL 70-110 TESTED AT [place] [address] ([facility]) (test code = FOSTER Paul [facility] 1538) [address] POCT-GLUCOSE [id number] 07:58:00 Test Item Value Reference Range Interpretation Comments POC-GLUCOSE METER 111 mg/dL 70-110 H TESTED AT [place] [address] ([facility]) (test code = FOSTER Paul [place] 1538) [address] BASIC METABOLIC [id number] 05:35:00 Test Item Value Reference Range Interpretation [...] S NOT APPLICABLE FOR DIALYSIS PATIEN TS. [id number] 05:34:00 Test Item Value Reference Range Interpretation Comments PHOSPHORUS (BEAKER) (test code = 4.2 mg/dL 2.3-4.7 604) [id number] 05:34:00 Test Item Value Reference Range Interpretation Comments MAGNESIUM (BEAKER) (test code = 1.7 mg/dL 1.6-2.6 627) PROTHROMBIN [id number] 05:24:00 Test Item Value Reference Range Interpretation Comments PROTIME (BEAKER) (test code = 18.8 seconds 11.7-14.7 H 759) INR (BEAKER) (test code = 370) 1.6 <=5.9 RECOMMENDED COUMADIN/WARFARIN INR THERAPY RANGESSTANDARD DOSE: 2.0 - 3.0 Includes: PROPHYLAXIS forvenous thrombosis, systemic embolization; TREATMENT for venous thrombosis and/or pulmonary embolus.HIGH RISK: Target INR is 2.5-3.5 for patients with mechanical heart valves.[id number] 05:05:00 Test Item Value Reference Range Interpretation Comments PARTIAL THROMBOPLASTIN TIME 96.6 seconds 22.5-36.0 H (BEAKER) (test code = 760) CBC W/PLT COUNT & AUTO [id number] 04:54:00 Test Item Value Reference Range Interpretation [...] 417) IMMATURE GRANULOCYTES-RELATIVE 1 % 0-1 PERCENT ([facility]) (test code = 2801) OCCULT BLOOD, [id number] 22:44:00 Test Item Value Reference Range Interpretation Comments FECAL OCCULT BLOOD ([facility]) (test Positive Negative A code = 618) [id number] 21:14:00 Test Item Value Reference Range Interpretation Comments PARTIAL THROMBOPLASTIN TIME 69.1 seconds 22.5-36.0 H ([facility]) (test code = 760) POCT-GLUCOSE [id number] 20:49:00 Test Item Value Reference Range Interpretation Comments POC-GLUCOSE METER 160 mg/dL 70-110 H TESTED AT [place] [address] ([facility]) (test code = MARIA GOSMAN Paul [facility] 1538) [address] POCT-GLUCOSE [id number] 17:59:00 Test Item Value Reference Range Interpretation Comments POC-GLUCOSE METER 128 mg/dL 70-110 H TESTED AT [place] [address] ([facility]) (test code = FOSTER Paul [facility] 1538) [address] POCT-GLUCOSE [id number] 13:31:00 Test Item Value Reference Range Interpretation Comments POC-GLUCOSE METER 70 mg/dL 70-110 TESTED AT [place] [address] ([facility]) (test code = MARIA GOSMAN Paul [facility] [address] 1538) [id number] 13:16:00 Test Item Value Reference Range Interpretation Comments PARTIAL THROMBOPLASTIN TIME 78.3 seconds 22.5-36.0 H ([facility]) (test code = 760) POCT-GLUCOSE [id number] 12:47:00 Test Item Value Reference Range Interpretation Comments POC-GLUCOSE METER 49 mg/dL 70-110 L TESTED AT [place] [address] ([facility]) (test code = [place] [address] 1538) POCT-GLUCOSE [id number] 09:05:00 Test Item Value Reference Range Interpretation Comments POC-GLUCOSE METER 306 mg/dL 70-110 H TESTED AT [place] [address] ([facility]) (test [facility] = [facility] [place] 1538) [address] OCCULT BLOOD, [id number] 06:52:00 Test Item Value Reference Range Interpretation Comments FECAL OCCULT BLOOD ([facility]) (test Positive Negative A code = 618) [id number] 05:42:00 Test Item Value Reference Range Interpretation [...] 20-55 (test code = 2590) BASIC METABOLIC [id number] 03:53:00 Test Item Value Reference Range Interpretation [...] S NOT APPLICABLE FOR DIALYSIS PATIEN TS. [id number] 03:51:00 Test Item Value Reference Range Interpretation Comments PHOSPHORUS (BEAKER) (test code = 3.2 mg/dL 2.3-4.7 604) [id number] 03:51:00 Test Item Value Reference Range Interpretation Comments PARTIAL THROMBOPLASTIN TIME 122.0 seconds 22.5-36.0 H (BEAKER) (test code = 760) While on warfarin.PROTHROMBIN [id number] 03:48:00 Test Item Value Reference Range Interpretation Comments PROTIME (BEAKER) (test code = 16.3 seconds 11.7-14.7 H 759) INR (BEAKER) (test code = 370) 1.3 <=5.9 RECOMMENDED COUMADIN/WARFARIN INR THERAPY RANGESSTANDARD DOSE: 2.0 - 3.0 Includes: PROPHYLAXIS forvenous thrombosis, systemic embolization; TREATMENT for venous thrombosis and/or pulmonary embolus.HIGH RISK: Target INR is 2.5-3.5 for patients with mechanical heart valves.While on warfarin.[id number] 03:44:00 Test Item Value Reference Range Interpretation Comments MAGNESIUM (BEAKER) (test code = 1.7 mg/dL 1.6-2.6 627) CBC W/PLT COUNT & AUTO [id number] 03:38:00 Test Item Value Reference Range Interpretation [...] PERCENT (BEAKER) (test code = 2801) POCT-GLUCOSE [id number] 23:35:00 Test Item Value Reference Range Interpretation Comments POC-GLUCOSE METER 149 mg/dL 70-110 H TESTED AT [facility] 6720 (BEAKER) (test code = FOSTER Paul [facility] 1538) [address] [id number] 20:08:00 Test Item Value Reference Range Interpretation Comments PARTIAL THROMBOPLASTIN TIME 55.6 seconds 22.5-36.0 H (BEAKER) (test code = 760) [id number] 15:10:00 Test Item Value Reference Range Interpretation Comments PARTIAL THROMBOPLASTIN TIME 81.4 seconds 22.5-36.0 H (BEAKER) (test code = 760) POCT-GLUCOSE [id number] 11:58:00 Test Item Value Reference Range Interpretation Comments POC-GLUCOSE METER 124 mg/dL 70-110 H TESTED AT [facility] 6720 [facility] (test code = FOSTER Paul [facility] 1538) [address] RAD, CHEST, 1 VIEW, NON [id number] 08:59:00Reason for exam:->s/p mvrShould this be performed at the bedside?->YesFINAL REPORT Chest one view compared to January 24 Discussion: Left IJ line, atrial appendage clip, cardiac valve replacement noted. Mild interstitial congestion. No gross effusion or pneumothorax. IMPRESSIONS: No significant change Signed: Rhea Colinrdes Verified Date/Time:01/29/2018 08:59:39 Reading Location: [facility] Reading Room POCT-GLUCOSE [id number] 07:41:00 Test Item Value Reference Range Interpretation Comments POC-GLUCOSE METER 113 mg/dL 70-110 H TESTED AT [facility] 6720 (BEAKER) (test code = FOSTER [place] 1538) [address] [id number] 07:23:00 Test Item Value Reference Range Interpretation Comments PARTIAL THROMBOPLASTIN TIME 89.8 seconds 22.5-36.0 H (BEAKER) (test code = 760) BASIC METABOLIC [id number] 06:05:00 Test Item Value Reference Range Interpretation [...] NOT APPLICABLE FOR DIALYSIS PATIEN TS. PROTHROMBIN [id number] 05:59:00 Test Item Value Reference Range Interpretation Comments PROTIME (BEAKER) (test code = 17.0 seconds 11.7-14.7 H 759) INR (BEAKER) (test code = 370) 1.4 <=5.9 RECOMMENDED COUMADIN/WARFARIN INR THERAPY RANGESSTANDARD DOSE: 2.0 - 3.0 Includes: PROPHYLAXIS forvenous thrombosis, systemic embolization; TREATMENT for venous thrombosis and/or pulmonary embolus.HIGH RISK: Target INR is 2.5-3.5 for patients with mechanical heart valves.While on warfarin.[id number] 05:56:00 Test Item Value Reference Range Interpretation Comments PHOSPHORUS (BEAKER) (test code = 5.3 mg/dL 2.3-4.7 H 604) [id number] 05:56:00 Test Item Value Reference Range Interpretation Comments MAGNESIUM (BEAKER) (test code = 1.9 mg/dL 1.6-2.6 627) CBC W/PLT COUNT & AUTO [id number] 05:38:00 Test Item Value Reference Range Interpretation [...] 0-1 PERCENT (BEAKER) (test code = 2801) [id number] 01:07:00 Test Item Value Reference Range Interpretation Comments PARTIAL THROMBOPLASTIN TIME 63.5 seconds 22.5-36.0 H (BEAKER) (test code = 760) [id number] 18:24:00 Test Item Value Reference Range Interpretation Comments PARTIAL THROMBOPLASTIN TIME 56.6 seconds 22.5-36.0 H (BEAKER) (test code = 760) POCT-GLUCOSE [id number] 18:14:00 Test Item Value Reference Range Interpretation Comments POC-GLUCOSE METER 101 mg/dL 70-110 TESTED AT [place] [address] (BEAKER) (test code = FOSTER [place] 1538) [address] [id number] 13:57:00 Test Item Value Reference Range Interpretation Comments PARTIAL THROMBOPLASTIN TIME 122.3 seconds 22.5-36.0 H (BEAKER) (test code = 760) POCT-GLUCOSE [id number] 13:08:00 Test Item Value Reference Range Interpretation Comments POC-GLUCOSE METER 105 mg/dL 70-110 TESTED AT [facility] 6720 (BEAKER) (test code = FOSTER Paul [facility] 1538) [address] BASIC METABOLIC [id number] 04:31:00 Test Item Value Reference Range Interpretation [...] S NOT APPLICABLE FOR DIALYSIS PATIEN TS. [id number] 04:28:00 Test Item Value Reference Range Interpretation Comments PHOSPHORUS (BEAKER) (test code = 3.9 mg/dL 2.3-4.7 604) [id number] 04:28:00 Test Item Value Reference Range Interpretation Comments MAGNESIUM (BEAKER) (test code = 1.7 mg/dL 1.6-2.6 627) HEPATIC FUNCTION [id number] 04:28:00 Test Item Value Reference Range Interpretation [...] (test code = 33 U/L 6-55 347) [id number] 04:20:00 Test Item Value Reference Range Interpretation Comments PARTIAL THROMBOPLASTIN TIME 106.2 seconds 22.5-36.0 H (BEAKER) (test code = 760) While on warfarin.PROTHROMBIN [id number] 04:15:00 Test Item Value Reference Range Interpretation [...] valves.While on warfarin.CBC W/PLT COUNT & AUTO [id number] 04:05:00 Test Item Value Reference Range Interpretation [...] PERCENT (BEAKER) (test code = 2801) POCT-GLUCOSE [id number] 00:29:00 Test Item Value Reference Range Interpretation Comments POC-GLUCOSE METER 119 mg/dL 70-110 H TESTED AT [place] [address] [facility] (test code = FOSTER Paul [facility] 1538) [address] [id number] 00:24:00 Test Item Value Reference Range Interpretation Comments PARTIAL THROMBOPLASTIN TIME 72.4 seconds 22.5-36.0 H (BEAKER) (test code = 760) POCT-GLUCOSE [id number] 18:33:00 Test Item Value Reference Range Interpretation Comments POC-GLUCOSE METER 158 mg/dL 70-110 H TESTED AT [place] [address] ([facility]) (test code = FOSTER Paul [facility] 1538) [address] [id number] 18:22:00 Test Item Value Reference Range Interpretation Comments PARTIAL THROMBOPLASTIN TIME 78.6 seconds 22.5-36.0 H (BEAKER) (test code = 760) POCT-GLUCOSE [id number] 12:20:00 Test Item Value Reference Range Interpretation Comments POC-GLUCOSE METER 110 mg/dL 70-110 TESTED AT [place] [address] ([facility]) (test code = FOSTER Paul [facility] 1538) [address] [id number] 12:04:00 Test Item Value Reference Range Interpretation Comments PARTIAL THROMBOPLASTIN TIME 98.0 seconds 22.5-36.0 H (BEAKER) (test code = 760) [id number] 04:11:00 Test Item Value Reference Range Interpretation [...] heart valves.While on warfarin.While on warfarin. PROTHROMBIN [id number] 04:10:00 Test Item Value Reference Range Interpretation Comments PROTIME (BEAKER) (test code = 15.2 seconds 11.7-14.7 H 759) INR (BEAKER) (test code = 370) 1.2 <=5.9 RECOMMENDED COUMADIN/WARFARIN INR THERAPY RANGESSTANDARD DOSE: 2.0 - 3.0 Includes: PROPHYLAXIS forvenous thrombosis, systemic embolization; TREATMENT for venous thrombosis and/or pulmonary embolus.HIGH RISK: Target INR is 2.5-3.5 for patients with mechanical heart valves.BASIC METABOLIC [id number] 03:53:00 Test Item Value Reference Range Interpretation [...] PATIEN TS. CBC W/PLT COUNT & AUTO [id number] 03:50:00 Test Item Value Reference Range Interpretation [...] H PERCENT (BEAKER) (test code = 2801) [id number] 03:45:00 Test Item Value Reference Range Interpretation Comments PHOSPHORUS (BEAKER) (test code = 4.7 mg/dL 2.3-4.7 604) [id number] 03:45:00 Test Item Value Reference Range Interpretation Comments MAGNESIUM (BEAKER) (test code = 2.0 mg/dL 1.6-2.6 627) HEPATIC FUNCTION [id number] 03:45:00 Test Item Value Reference Range Interpretation [...] (test code = 36 U/L 6-55 347) [id number] 22:16:00 Test Item Value Reference Range Interpretation Comments PARTIAL THROMBOPLASTIN TIME 60.7 seconds 22.5-36.0 H (BEAKER) (test code = 760) POCT-GLUCOSE [id number] 18:32:00 Test Item Value Reference Range Interpretation Comments POC-GLUCOSE METER 125 mg/dL 70-110 H TESTED AT [facility] 6720 (BEAKER) (test code = FOSTER [place] 1538) [address] CBC (HEMOGRAM ONLY)2018-01-26 17:21:00 Test Item Value [...] (BEAKER) (test code = 413) BASIC METABOLIC [id number] 07:16:00 Test Item Value Reference Range Interpretation [...] S NOT APPLICABLE FOR DIALYSIS PATIEN TS. [id number] 07:13:00 Test Item Value Reference Range Interpretation Comments PHOSPHORUS (BEAKER) (test code = 4.3 mg/dL 2.3-4.7 604) [id number] 07:13:00 Test Item Value Reference Range Interpretation Comments MAGNESIUM (BEAKER) (test code = 2.0 mg/dL 1.6-2.6 627) HEPATIC FUNCTION [id number] 07:13:00 Test Item Value Reference Range Interpretation [...] (test code = 37 U/L 6-55 347) [id number] 07:12:00 Test Item Value Reference Range Interpretation [...] PERCENT (BEAKER) (test code = 2801) BLOOD [id number] 00:00:00 Test Item Value Reference Range Interpretation Comments CULTURE (BEAKER) (test No growth in 5 days code = 1095) BLOOD [id number] 00:00:00 Test Item Value Reference Range Interpretation Comments CULTURE (BEAKER) (test No growth in 5 days code = 1095) POCT-GLUCOSE [id number] 23:37:00 Test Item Value Reference Range Interpretation Comments POC-GLUCOSE METER 87 mg/dL 70-110 TESTED AT [place] [address] (BEAKER) (test code = [facility] [address] 1538) [id number] 23:06:00 Test Item Value Reference Range Interpretation Comments PARTIAL THROMBOPLASTIN TIME 81.8 seconds 22.5-36.0 H (BEAKER) (test code = 760) POCT-GLUCOSE [id number] 20:42:00 Test Item Value Reference Range Interpretation Comments POC-GLUCOSE METER 193 mg/dL 70-110 H TESTED AT [place] [address] [facility] (test code = [facility] 1538) [address] HEMOGLOBIN AND [id number] 17:40:00 Test Item Value Reference Range Interpretation Comments HEMOGLOBIN (BEAKER) (test code = 8.4 GM/DL 13.7-17.5 L 410) HEMATOCRIT (BEAKER) (test code = 25.4 % 40.1-51.0 L 411) [id number] 13:06:00 Test Item Value Reference Range Interpretation Comments PARTIAL THROMBOPLASTIN TIME 61.4 seconds 22.5-36.0 H (BEAKER) (test code = 760) POCT-GLUCOSE [id number] 12:56:00 Test Item Value Reference Range Interpretation Comments POC-GLUCOSE METER 116 mg/dL 70-110 H TESTED AT [place] [address] (BEAKER) (test code = [facility] 1538) [address] [id number] 06:43:00 Test Item Value Reference Range Interpretation [...] 37 % 20-55 (test code = 2590) [id number] 05:32:00 Test Item Value Reference Range Interpretation Comments PARTIAL THROMBOPLASTIN TIME 63.7 seconds 22.5-36.0 H (BEAKER) (test code = 760) BASIC METABOLIC [id number] 05:03:00 Test Item Value Reference Range Interpretation [...] APPLICABLE FOR DIALYSIS PATIEN TS. HEPATIC FUNCTION [id number] 05:00:00 Test Item Value Reference Range Interpretation [...] (test code = 41 U/L 6-55 347) [id number] 04:40:00 Test Item Value Reference Range Interpretation [...] 0-0 (BEAKER) (test code = 413) POCT-GLUCOSE [id number] 00:30:00 Test Item Value Reference Range Interpretation Comments POC-GLUCOSE METER 112 mg/dL 70-110 H TESTED AT [facility] 6720 (BEAKER) (test code = [place] 1538) [address] CBC W/PLT COUNT & AUTO [id number] 19:16:00 Test Item Value Reference Range Interpretation [...] PERCENT (BEAKER) (test code = 2801) POCT-GLUCOSE [id number] 18:27:00 Test Item Value Reference Range Interpretation Comments POC-GLUCOSE METER 102 mg/dL 70-110 TESTED AT [facility] 6720 (BEAKER) (test code = FOSTER Paul [facility] 1538) [address] POCT-GLUCOSE [id number] 13:01:00 Test Item Value Reference Range Interpretation Comments POC-GLUCOSE METER 119 mg/dL 70-110 H TESTED AT [facility] 6720 [facility] (test code = FOSTER Paul [facility] 1538) [address] RAD, CHEST, 1 VIEW, NON [id number] 10:59:00Reason for exam:->ptxShould this be performed at [...] MDReport Verified Date/Time: 01/24/2018 10:59:29 Reading Location: [facility] Diagnostic Imaging Reading Room - [place] [address] 1120 BRONCHIAL CULTURE + GRAM STAIN 2018-01-24 08:53:00 Test Item Value Reference Range Interpretation Comments CULTURE (BEAKER) 2+ Normal respiratory (test code = 1095) pete present GRAM STAIN RESULT 4+ White blood cells (BEAKER) (test code = seen 1123) GRAM STAIN RESULT No organisms seen (BEAKER) (test code = 62384) POCT-GLUCOSE [id number] 06:28:00 Test Item Value Reference Range Interpretation Comments POC-GLUCOSE METER 119 mg/dL 70-110 H TESTED AT [facility] 6720 (BEAKER) (test code = F[place]ER [place] 1538) [address] BASIC METABOLIC [id number] 04:41:00 Test Item Value Reference Range Interpretation [...] WBC 0-0 (BEAKER) (test code = 413) [id number] 04:21:00 Test Item Value Reference Range Interpretation Comments MAGNESIUM (BEAKER) (test code = 2.0 mg/dL 1.6-2.6 627) HEPATIC FUNCTION [id number] 04:21:00 Test Item Value Reference Range Interpretation [...] = 36 U/L 6-55 347) Specimen slightly [id number] 04:13:00 Test Item Value Reference Range Interpretation Comments PARTIAL THROMBOPLASTIN TIME 72.1 seconds 22.5-36.0 H (BEAKER) (test code = 760) BLOOD GAS, [id number] 04:13:00 Test Item Value Reference Range Interpretation [...] (test code = 1819) 100.0 % POCT-GLUCOSE [id number] 00:08:00 Test Item Value Reference Range Interpretation Comments POC-GLUCOSE METER 150 mg/dL 70-110 H TESTED AT [place] [address] ([facility] (test code = MARIA GOSMAN Paul [place] 1538) [address] POCT-GLUCOSE [id number] 18:45:00 Test Item Value Reference Range Interpretation Comments POC-GLUCOSE METER 162 mg/dL 70-110 H TESTED AT [place] [address] ([facility]) (test code = FOSTER [place] 1538) [id number] POCT-GLUCOSE [id number] 13:14:00 Test Item Value Reference Range Interpretation Comments POC-GLUCOSE METER 176 mg/dL 70-110 H TESTED AT [place] [address] ([facility]) (test code = [place]OSTER [place] 1538) [id number] POCT-GLUCOSE [id number] 10:44:00 Test Item Value Reference Range Interpretation Comments POC-GLUCOSE METER 146 mg/dL 70-110 H TESTED AT [place] [address] ([facility]) (test code = [place]OSTER [place] 1538) [id number] BLOOD GAS, [id number] 10:32:00 Test Item Value Reference Range Interpretation [...] 40.0 % RAD, CHEST, 1 VIEW, NON [id number] 09:14:00Reason for exam:->ptxShould this be performed at the bedside?->YesFINAL REPORT COMPARISON: 01/22/2018 TECHNIQUE: Single view of the chest FINDINGS: Bilateral interstitial and airspace opacities again seen. Small pleural effusions are suspected. No gross new lung parenchymal changes. There is a tiny right apical pneumothorax. Support lines and tubes are stable. IMPRESSION: No significant interval change. Signed: Kyle Evans MDReport Verified Date/Time: 01/23/2018 09:14:48 Reading Location: [facility] Radiology Reading Room Electronically sign ed by: KYLE EVANS M.D. on 01/23/2018 09:14 AMBLOOD [id number] 08:09:00 Test Item Value Reference Range Interpretation Comments CULTURE (BEAKER) A From Aerobi c Bottle (test code = Only [place] 1095) species GRAM STAIN From aerobic RESULT (BEAKER) bottle only: gram (test code = positive rods 1123) NOT DETECTEDPanel is negative for Wedo [employer] BCID-detectable organisms. Please refer to traditional culture and sensitivity results as they become available.Other organisms and resistance markers not contained in this PCR panel cannot be excluded and follow-up of traditional culture results is required.This sample was tested at the [facility] Clinical Microbiology Laboratory using the [employer]Array Blood Culture ID Panel. This test is FDA cleared for in vitro diagnostic use and has been verified and approved by the [facility] Clinical Microbiology laboratory for clinical use. Reference Range: Not DetectedBLOOD GAS, [id number] 04:45:00 Test Item Value Reference Range Interpretation [...] code = 1819) 40.0 % BASIC METABOLIC [id number] 04:39:00 Test Item Value Reference Range Interpretation [...] APPLICABLE FOR DIALYSIS PATIEN TS. Specimen slightly [id number] 04:35:00 Test Item Value Reference Range Interpretation Comments MAGNESIUM (BEAKER) (test code = 1.8 mg/dL 1.6-2.6 627) HEPATIC FUNCTION [id number] 04:35:00 Test Item Value Reference Range Interpretation [...] = 40 U/L 6-55 347) Specimen slightly [id number] 04:18:00 Test Item Value Reference Range Interpretation [...] WBC 0-0 (test code = 413) POCT-GLUCOSE [id number] 00:52:00 Test Item Value Reference Range Interpretation Comments POC-GLUCOSE METER 145 mg/dL 70-110 H TESTED AT [facility] 6720 ([facility]) (test code = MARIA GOSMAN [place] 1538) [address] BLOOD [id number] 00:00:00 Test Item Value Reference Range Interpretation Comments CULTURE (BEAKER) (test No growth in 5 days code = 1095) POCT-GLUCOSE [id number] 18:17:00 Test Item Value Reference Range Interpretation Comments POC-GLUCOSE METER 97 mg/dL 70-110 TESTED AT [place] [address] (BEAKER) (test code = [facility] [address] 1538) POCT-GLUCOSE [id number] 13:26:00 Test Item Value Reference Range Interpretation Comments POC-GLUCOSE METER 138 mg/dL 70-110 H TESTED AT [place] [address] (BEAKER) (test code = [facility] 1538) [address] BLOOD GAS, [id number] 10:32:00 Test Item Value Reference Range Interpretation [...] (test code = 1819) 40.0 % POCT-GLUCOSE [id number] 06:21:00 Test Item Value Reference Range Interpretation Comments POC-GLUCOSE METER 138 mg/dL 70-110 H TESTED AT [place] [address] (BEAKER) (test code = [facility] 1538) [address] BASIC METABOLIC [id number] 04:25:00 Test Item Value Reference Range Interpretation [...] APPLICABLE FOR DIALYSIS PATIEN TS. Specimen slightly [id number] 04:24:00 Test Item Value Reference Range Interpretation Comments MAGNESIUM (BEAKER) (test code = 2.1 mg/dL 1.6-2.6 627) HEPATIC FUNCTION [id number] 04:24:00 Test Item Value Reference Range Interpretation [...] /100 WBC 0-0 (test code = 413) [id number] 04:07:00 Test Item Value Reference Range Interpretation Comments PARTIAL THROMBOPLASTIN TIME 80.2 seconds 22.5-36.0 H (BEAKER) (test code = 760) BLOOD GAS, [id number] 04:06:00 Test Item Value Reference Range Interpretation [...] 40.0 % RAD, CHEST, 1 VIEW, NON [id number] 03:32:00Reason for exam:->ptxShould this be performed at [...] Stable surgical changes.Additional findings: None. Signed: JR Lc, Juliana Muniz Verified Date/Time: 01/22/2018 03:32:38 Reading Location: [address] Body Reading Room POCT-GLUCOSE [id number] 00:43:00 Test Item Value Reference Range Interpretation Comments POC-GLUCOSE METER 102 mg/dL 70-110 TESTED AT [place] [address] ([facility]) (test code = [facility] 1538) [address] [id number] 17:31:00 Test Item Value Reference Range Interpretation Comments PARTIAL THROMBOPLASTIN TIME 65.0 seconds 22.5-36.0 H ([facility]) (test code = 760) POCT-GLUCOSE [id number] 17:24:00 Test Item Value Reference Range Interpretation Comments POC-GLUCOSE METER 171 mg/dL 70-110 H TESTED AT [facility] 6720 ([facility]) (test code = [place] Paul [place] 1538) [address] POCT-GLUCOSE [id number] 13:01:00 Test Item Value Reference Range Interpretation Comments POC-GLUCOSE METER 144 mg/dL 70-110 H TESTED AT [place] [address] ([facility]) (test code = [facility] [place] 1538) [address] [id number] 11:12:00 Test Item Value Reference Range Interpretation Comments PARTIAL THROMBOPLASTIN TIME 67.9 seconds 22.5-36.0 H ([facility]) (test code = 760) RAD, CHEST, 1 VIEW, NON [id number] 08:01:00Reason for exam:->ptxShould this be performed at [...] MDReport Verified Date/Time: 01/21/2018 08:01:07 Reading Location: [facility] Radiology Reading Room POCT-GLUCOSE [id number] 06:50:00 Test Item Value Reference Range Interpretation Comments POC-GLUCOSE METER 149 mg/dL 70-110 H TESTED AT [facility] 6720 (BEAKER) (test code = FOSTER Paul [place] 1538) [address] CBC (HEMOGRAM ONLY)2018-01-21 04:20:00 Test Item Value [...] /100 WBC 0-0 (test code = 413) [id number] 04:03:00 Test Item Value Reference Range Interpretation Comments PARTIAL THROMBOPLASTIN TIME 51.2 seconds 22.5-36.0 H (BEAKER) (test code = 760) BASIC METABOLIC [id number] 04:01:00 Test Item Value Reference Range Interpretation [...] APPLICABLE FOR DIALYSIS PATIEN TS. Specimen moderately [id number] 03:59:00 Test Item Value Reference Range Interpretation Comments MAGNESIUM (BEAKER) (test code = 2.0 mg/dL 1.6-2.6 627) HEPATIC FUNCTION [id number] 03:59:00 Test Item Value Reference Range Interpretation [...] U/L 6-55 347) Specimen moderately ictericVANCOMYCIN LEVEL, [id number] 03:57:00 Test Item Value Reference Range Interpretation Comments VANCOMYCIN RANDOM (BEAKER) (test 18.3 ug/mL code = 523) Reference Range: No NormalsOXYGEN SATURATION, [id number] 03:32:00 Test Item Value Reference Range Interpretation Comments O2 SATURATION (MEASURED) (BEAKER) 86.3 % (test code = 1455) BLOOD GAS, [id number] 03:30:00 Test Item Value Reference Range Interpretation [...] (test code = 1819) 40.0 % POCT-GLUCOSE [id number] 23:43:00 Test Item Value Reference Range Interpretation Comments POC-GLUCOSE METER 143 mg/dL 70-110 H TESTED AT [place] [address] ([facility]) (test code = [place]ER [place] 1538) [address] BLOOD [id number] 18:00:00 Test Item Value Reference Range Interpretation Comments CULTURE (BEAKER) (test No growth in 5 days code = 1095) BLOOD [id number] 18:00:00 Test Item Value Reference Range Interpretation Comments CULTURE (BEAKER) (test No growth in 5 days code = 1095) POCT-GLUCOSE [id number] 16:32:00 Test Item Value Reference Range Interpretation Comments POC-GLUCOSE METER 185 mg/dL 70-110 H TESTED AT [place] [id number] ([facility]) (test code = FOSTER [place] 1538) [address] MISCELLANEOUS LAB [id number] 15:04:00 Test Item Value Reference Range Interpretation Comments SCAN RESULT (test code = 7097994) Result comments: NOT DETECTED Panel is negative for [employer] BCID-detectable organisms. Please refer to traditional culture and sensitivity results as they become available. Other organisms and resistance markers not contained in this PCR panel cannot be excluded and follow-up of traditional culture results is required. This sample was tested at the [facility] Clinical Microbiology Laboratory using the the [employer] Blood Culture ID Panel. This test is FDA cleared for in vitro diagnostic use and hasbeen verified and approved by the [facility] Clinical Microbiology laboratory for clinical use. ReferenceRange: Not DetectedPOCT- GLUCOSE [id number] 12:25:00 Test Item Value Reference Range Interpretation Comments POC-GLUCOSE METER 116 mg/dL 70-110 H TESTED AT [place] [address] ([facility]) (test code = FOSTER Paul [facility] 1538) [address] RAD, CHEST, 1 VIEW, NON [id number] 06:38:00Reason for exam:->pl effusionShould this be performed [...] MDReport Verified Date/Time: 01/20/2018 06:38:33 Reading Location: [place] [address]Y CT Body Reading Room POCT-GLUCOSE [id number] 05:54:00 Test Item Value Reference Range Interpretation Comments POC-GLUCOSE METER 231 mg/dL 70-110 H TESTED AT [place] [address] ([facility]) (test code = FOSTER Paul [facility] 1538) [address] VANCOMYCIN LEVEL, [id number] 04:23:00 Test Item Value Reference Range Interpretation Comments VANCOMYCIN RANDOM ([facility]) (test 25.8 ug/mL code = 523) Reference Range: No [id number] 04:17:00 Test Item Value Reference Range Interpretation Comments MAGNESIUM (BEAKER) (test code = 2.0 mg/dL 1.6-2.6 627) HEPATIC FUNCTION [id number] 04:17:00 Test Item Value Reference Range Interpretation [...] 6-55 H 347) Specimen moderately ictericBASIC METABOLIC [id number] 04:17:00 Test Item Value Reference Range Interpretation [...] APPLICABLE FOR DIALYSIS PATIEN TS. Specimen moderately [id number] 04:05:00 Test Item Value Reference Range Interpretation Comments PARTIAL THROMBOPLASTIN TIME 69.7 seconds 22.5-36.0 H (BEAKER) (test code = 760) CBC W/PLT COUNT & AUTO [id number] 03:49:00 Test Item Value Reference Range Interpretation [...] IMMATURE GRANULOCYTES-RELATIVE 3 % 0-1 H PERCENT (AKER) (test code = 2801) OXYGEN SATURATION, [id number] 03:48:00 Test Item Value Reference Range Interpretation Comments O2 SATURATION (MEASURED) ([facility]) 84.1 % (test code = 1455) POCT-GLUCOSE [id number] 23:14:00 Test Item Value Reference Range Interpretation Comments POC-GLUCOSE METER 248 mg/dL 70-110 H TESTED AT [facility] 67 ([facility]) (test code = [facility] 1538) [address] POCT-GLUCOSE [id number] 18:56:00 Test Item Value Reference Range Interpretation Comments POC-GLUCOSE METER 213 mg/dL 70-110 H TESTED AT [place] [address] ([facility]) (test code = [facility] 1538) [address] POCT-GLUCOSE [id number] 14:06:00 Test Item Value Reference Range Interpretation Comments POC-GLUCOSE METER 210 mg/dL 70-110 H TESTED AT [place] [address] ([facility]) (test code = [facility] 1538) [address] SPUTUM CULTURE + GRAM [id number] 13:45:00 Test Item Value Reference Range Interpretation Comments CULTURE (BEAKER) 4+ Normal respiratory (test code = 1095) pete present GRAM STAIN RESULT 4+ WBCs (BEAKER) (test code = 1123) GRAM STAIN RESULT 0-5 epithelial cells (BEAKER) (test code = 43569) GRAM STAIN RESULT 3+ gram negative rods (BEAKER) (test code = 53482) GRAM STAIN RESULT 2+ gram positive cocci (BEAKER) (test code = in pairs and clusters 411963) [id number] 12:37:00 Test Item Value Reference Range Interpretation Comments PARTIAL THROMBOPLASTIN TIME 74.3 seconds 22.5-36.0 H (BEAKER) (test code = 760) CBC W/PLT COUNT & AUTO [id number] 10:52:00 Test Item Value Reference Range Interpretation [...] H (test code = 413) VANCOMYCIN LEVEL, [id number] 05:41:00 Test Item Value Reference Range Interpretation Comments VANCOMYCIN RANDOM (BEAKER) (test 27.9 ug/mL code = 523) Reference Range: No NormalsBASIC METABOLIC [id number] 05:39:00 Test Item Value Reference Range Interpretation [...] APPLICABLE FOR DIALYSIS PATIEN TS. Specimen moderately [id number] 05:36:00 Test Item Value Reference Range Interpretation Comments MAGNESIUM (BEAKER) (test code = 2.0 mg/dL 1.6-2.6 627) [id number] 05:36:00 Test Item Value Reference Range Interpretation Comments PHOSPHORUS (BEAKER) (test code = 3.9 mg/dL 2.3-4.7 604) HEPATIC FUNCTION [id number] 05:36:00 Test Item Value Reference Range Interpretation [...] 6-55 H 347) Specimen moderately ictericOXYGEN SATURATION, [id number] 05:33:00 Test Item Value Reference Range Interpretation [...] WBC 0-0 H (test code = 413) [id number] 05:24:00 Test Item Value Reference Range Interpretation Comments PARTIAL THROMBOPLASTIN TIME 68.1 seconds 22.5-36.0 H (BEAKER) (test code = 760) RAD, CHEST, 1 VIEW, NON [id number] 04:41:00Reason for exam:->pl effusionShould this be performed at the bedside?->YesFINAL REPORT CLINICAL INDICATION: Support lines. Comparison: 01/18/2018 The ca rdiomediastinal contours are stable. Central pulmonary vascular congestion and bilateral parenchymalopacities are unchanged. There is no pneumothorax. Support lines are stable. Signed: Kellen Parra MDReport Verified Date/Time: 01/19/2018 04:41:27 Reading Location: [address] Reading Room APTT 2018-01-19 00:38:00 Test Item Value Reference Range Interpretation Comments PARTIAL THROMBOPLASTIN TIME 45.5 seconds 22.5-36.0 H (BEAKER) (test code = 760) POCT-GLUCOSE [id number] 00:21:00 Test Item Value Reference Range Interpretation Comments POC-GLUCOSE METER 189 mg/dL 70-110 H TESTED AT [facility] 6720 ([facility]) (test code = FOSTER Paul [place] 1538) [address] POCT-GLUCOSE [id number] 23:34:00 Test Item Value Reference Range Interpretation Comments POC-GLUCOSE METER 162 mg/dL 70-110 H TESTED AT [facility] 6720 ([facility]) (test code = FOSTER Paul [place] 1538) [address] POCT-GLUCOSE [id number] 18:09:00 Test Item Value Reference Range Interpretation Comments POC-GLUCOSE METER 172 mg/dL 70-110 H TESTED AT [facility] 6720 ([facility]) (test code = FOSTER Paul [place] 1538) [address] RAD, ABDOMEN/KUB, 1 VIEW [id number] 17:36:00Reason for exam:->ileusShould this be performed at the bedside?->YesFINAL REPORT Comparison: 01/17/2018 TECHNIQUE: Frontal image of the abdomen FINDINGS: There is a nonspecific bowel gas pattern. Tip of nasogastric projects in the distal stomach. No gross free intraperitoneal air. No acute skeletal abnormality. Signed: Kyle Evans MDReport Verified Date/Time: 01/18/2018 17:36:02 Reading Location: [address] Transitional Reading Room [id number] 17:10:00 Test Item Value Reference Range Interpretation Comments PARTIAL THROMBOPLASTIN TIME 27.8 seconds 22.5-36.0 ([facility]) (test code = 760) Prior to initiating heparinPOCT-GLUCOSE [id number] 15:22:00 Test Item Value Reference Range Interpretation Comments POC-GLUCOSE METER 126 mg/dL 70-110 H TESTED AT [facility] 6720 ([facility]) (test code = FOSTER Paul [facility] 1538) [address] [id number] 13:02:00 Test Item Value Reference Range Interpretation Comments [facility] (test code = 3.8 mg/dL 2.3-4.7 604) BASIC METABOLIC [id number] 13:02:00 Test Item Value Reference Range Interpretation [...] FOR DIALYSIS PATIEN TS. Specimen moderately ictericPOCT-GLUCOSE [id number] 12:11:00 Test Item Value Reference Range Interpretation Comments POC-GLUCOSE METER 113 mg/dL 70-110 H TESTED AT [facility] 6720 (BEAKER) (test code = [place] 1531) [address] CBC W/PLT COUNT & AUTO [id number] 12:03:00 Test Item Value Reference Range Interpretation [...] = 413) RAD, CHEST, 1 VIEW, NON [id number] 09:44:00Reason for exam:->pl effusionShould this be performed at the bedside?->YesFINAL REPORT TECHNIQUE: Single view of the chest. COMPARISON: 01/17/2018 FINDINGS: Bilateral patchy interstitial and airspace opacities are stable. There are no large pleural effusions. No gross pneumothorax.No gross new lung parenchymal changes. A previous catheter in the rightneck has been removed. Remaining lines and tubes are stable. Signed: Kyle Evans MDReport Verified Date/Time: 01/18/2018 09:44:26 Reading Location: [address] Transitional Reading Room SPUTUM CULTURE + GRAM [id number] 08:09:00 Test Item Value Reference Range Interpretation Comments CULTURE (BEAKER) 3+ Normal respiratory (test code = 1095) pete present GRAM STAIN RESULT 4+ WBCs (BEAKER) (test code = 1123) GRAM STAIN RESULT 0-5 epithelial cells (BEAKER) (test code = 82505) GRAM STAIN RESULT No organisms seen (BEAKER) (test code = 47655) POCT-GLUCOSE [id number] 07:52:00 Test Item Value Reference Range Interpretation Comments POC-GLUCOSE METER 146 mg/dL 70-110 H TESTED AT [facility] 6720 (BEAKER) (test code = FOSTER Paul [facility] 1538) [address] POCT-GLUCOSE [id number] 06:30:00 Test Item Value Reference Range Interpretation Comments POC-GLUCOSE METER 135 mg/dL 70-110 H TESTED AT [facility] 6720 (BEAKER) (test code = [facility] [place] 1538) [address] POCT-GLUCOSE [id number] 06:30:00 Test Item Value Reference Range Interpretation Comments POC-GLUCOSE METER 130 mg/dL 70-110 H TESTED AT [facility] 6720 (BEAKER) (test code = FOSTER Paul [facility] 1538) [address] [id number] 03:56:00 Test Item Value Reference Range Interpretation Comments PHOSPHORUS (BEAKER) (test code = 3.1 mg/dL 2.3-4.7 604) [id number] 03:56:00 Test Item Value Reference Range Interpretation Comments MAGNESIUM (BEAKER) (test code = 2.0 mg/dL 1.6-2.6 627) HEPATIC FUNCTION [id number] 03:56:00 Test Item Value Reference Range Interpretation [...] 6-55 H 347) Specimen moderately ictericVANCOMYCIN LEVEL, [id number] 03:53:00 Test Item Value Reference Range Interpretation Comments VANCOMYCIN RANDOM (BEAKER) (test 18.0 ug/mL code = 523) Reference Range: No [id number] 03:48:00 Test Item Value Reference Range Interpretation Comments CALCIUM (BEAKER) (test code = 697) 8.1 mg/dL 8.4-10.2 L CALCIUM, [id number] 03:34:00 Test Item Value Reference Range Interpretation Comments CALCIUM IONIZED (BEAKER) (test 1.06 mmol/L 1.12-1.27 L code = 698) PH, BLOOD (BEAKER) (test code = 7.38 1810) OXYGEN SATURATION, [id number] 03:33:00 Test Item Value Reference Range Interpretation Comments O2 SATURATION (MEASURED) ([facility]) 85.8 % (test code = 1455) POCT-GLUCOSE [id number] 03:26:00 Test Item Value Reference Range Interpretation Comments POC-GLUCOSE METER 144 mg/dL 70-110 H TESTED AT [place] [address] ([facility]) (test code = F[place]ER Paul [place] 1538) [address] POCT-GLUCOSE [id number] 03:26:00 Test Item Value Reference Range Interpretation Comments POC-GLUCOSE METER 163 mg/dL 70-110 H TESTED AT [place] [address] ([facility]) (test code = [facility] [place] 1538) [address] POCT-GLUCOSE [id number] 01:04:00 Test Item Value Reference Range Interpretation Comments POC-GLUCOSE METER 159 mg/dL 70-110 H TESTED AT [place] [address] ([facility]) (test code = [facility] [place] 1538) [address] POCT-GLUCOSE [id number] 00:12:00 Test Item Value Reference Range Interpretation Comments POC-GLUCOSE METER 132 mg/dL 70-110 H TESTED AT [place] [address] ([facility]) (test code = [facility] [place] 1538) [address] LACTIC ACID, ARTERIAL, WHOLE [id number] 23:54:00 Test Item Value Reference Range Interpretation Comments LACTATE BLOOD ARTERIAL (2) 0.7 mmol/L 0.5-2.2 ([facility]) (test code = 2874) Effective 01/04/2016: Units/Reference Range ChangeNew: 0.5-2.2 mmol/L Previous: 5-20 mg/dLSpecimen moderately ictericPOTASSIUM-STAT [id number] 23:30:00 Test Item Value Reference Range Interpretation Comments POTASSIUM (BEAKER) (test code = 4.0 meq/L 3.6-5.5 379) BLOOD GAS, [id number] 23:30:00 Test Item Value Reference Range Interpretation [...] code = 1819) 50.0 % SODIUM NA-STAT [id number] 23:30:00 Test Item Value Reference Range Interpretation Comments SODIUM (BEAKER) (test code = 381) 134 meq/L 135-148 L GLUCOSE-STAT [id number] 23:30:00 Test Item Value Reference Range Interpretation Comments GLUCOSE RANDOM (BEAKER) (test code 138 mg/dL 70-110 H = 652) HGB/HCT (H&H) - STAT [id number] 23:30:00 Test Item Value Reference Range Interpretation Comments HEMOGLOBIN (BEAKER) (test code = 9.0 g/dL 13.0-16.8 L 410) HEMATOCRIT (BEAKER) (test code = 26.0 % 40.0-50.0 L 411) CALCIUM, [id number] 23:30:00 Test Item Value Reference Range Interpretation Comments CALCIUM IONIZED (BEAKER) (test 1.04 mmol/L 1.12-1.27 L code = 698) PH, BLOOD (BEAKER) (test code = 7.48 1810) OXYGEN SATURATION, [id number] 23:28:00 Test Item Value Reference Range Interpretation Comments O2 SATURATION (MEASURED) (BEAKER) 82.0 % (test code = 1455) POCT-GLUCOSE [id number] 21:35:00 Test Item Value Reference Range Interpretation Comments POC-GLUCOSE METER 99 mg/dL 70-110 TESTED AT [facility] 6720 ([facility]) (test code = [facility] [address] 1538) POCT-GLUCOSE [id number] 21:35:00 Test Item Value Reference Range Interpretation Comments POC-GLUCOSE METER 111 mg/dL 70-110 H TESTED AT [facility] 6720 ([facility]) (test code = [facility] 1538) [address] RAD, CHEST, 1 VIEW, NON [id number] 17:08:00Reason for exam:->LIJ placment CVCShould this be [...] well aligned. No fracture. Signed: Alonso Vail MDReport Verified Date/Time: 01/17/2018 17:08:24 Reading Location: [facility] Radiology Reading Room GLUCOSE-STAT [id number] 16:33:00 Test Item Value Reference Range Interpretation Comments GLUCOSE RANDOM (BEAKER) (test code 147 mg/dL 70-110 H = 652) POTASSIUM-STAT [id number] 16:32:00 Test Item Value Reference Range Interpretation Comments POTASSIUM (BEAKER) (test code = 4.7 meq/L 3.6-5.5 379) [id number] 15:03:00 Test Item Value Reference Range Interpretation Comments PROCALCITONIN (BEAKER) (test code 5.33 ng/mL <0.05 H = 3036) SEPSIS RISK (ng/mL)Low: 0.05-0.50Intermediate: 0.51-2.00High: >=2.01CT BRAIN WITHOUT IV CONTRAST - [id number] 13:50:00Reason for exam:->altered mental statusFINAL REPORT CT [...] should be excluded clinically. Signed: Dung Granda Verified Date/Time: 01/17/2018 13:50:42 Reading Location: [facility] Radiology Reading Room CALCIUM, [id number] 12:36:00 Test Item Value Reference Range Interpretation Comments CALCIUM IONIZED (BEAKER) (test 1.09 mmol/L 1.12-1.27 L code = 698) PH, BLOOD (BEAKER) (test code = 7.36 1810) GLUCOSE-STAT [id number] 12:36:00 Test Item Value Reference Range Interpretation Comments GLUCOSE RANDOM (BEAKER) (test code 147 mg/dL 70-110 H = 652) POTASSIUM-STAT [id number] 12:36:00 Test Item Value Reference Range Interpretation Comments POTASSIUM (BEAKER) (test code = 4.7 meq/L 3.6-5.5 379) RAD, ABDOMEN/KUB, 1 VIEW [id number] 08:42:00Reason for exam:->ileusShould this be performed at [...] MDReport Verified Date/Time: 01/17/2018 08:42:09 Reading Location: [facility] Radiology Reading Room CBC W/PLT COUNT & AUTO [id number] 08:18:00 Test Item Value Reference Range Interpretation [...] (test code = 413) HEPARIN ASSAY - [id number] 08:07:00 Test Item Value Reference Range Interpretation Comments UNFRACTIONATED HEPARIN-ANTI 10A < u/ml 0.30-0.70 L (BEAKER) (test code = 1606) Recommendations for Monitoring Unfractionated Heparin Therapeutic Range: 0.3- 0.7 u/mL with continuous IV infusionPOCT-GLUCOSE [id number] 06:09:00 Test Item Value Reference Range Interpretation Comments POC-GLUCOSE METER 143 mg/dL 70-110 H TESTED AT [facility] 6720 (BEAKER) (test code = [place] 1538) [address] RAD, CHEST, 1 VIEW, NON [id number] 04:43:00Reason for exam:->acute respiratory insufficiencyShould this be [...] MDReport Verified Date/Time: 01/17/2018 04:43:34 Reading Location: [address] Body Reading Room OXYGEN SATURATION, [id number] 04:13:00 Test Item Value Reference Range Interpretation Comments O2 SATURATION (MEASURED) (BEAKER) 85.7 % (test code = 1455) [id number] 04:06:00 Test Item Value Reference Range Interpretation Comments PHOSPHORUS (BEAKER) (test code = 3.1 mg/dL 2.3-4.7 604) [id number] 04:06:00 Test Item Value Reference Range Interpretation Comments MAGNESIUM (BEAKER) (test code = 2.1 mg/dL 1.6-2.6 627) COMPREHENSIVE METABOLIC [id number] 04:06:00 Test Item Value Reference Range Interpretation [...] DIALYSIS PATIEN TS. Specimen moderately ictericHEPATIC FUNCTION [id number] 04:06:00 Test Item Value Reference Range Interpretation [...] 347) Specimen moderately ictericLACTIC ACID, ARTERIAL, WHOLE [id number] 03:59:00 Test Item Value Reference Range Interpretation Comments LACTATE BLOOD 0.5 mmol/L 0.5-2.2 Specimen sligh tly ARTERIAL (2) (BEAKER) hemoly zed (test code = 2874) Effective 01/04/2016: Units/Reference Range ChangeNew: 0.5-2.2 mmol/L Previous: 5-20 mg/dLSpecimen moderately ictericBLOOD GAS, [id number] 03:58:00 Test Item Value Reference Range Interpretation [...] (test code = 1819) 40.0 % CALCIUM, [id number] 03:58:00 Test Item Value Reference Range Interpretation Comments CALCIUM IONIZED (BEAKER) (test 1.14 mmol/L 1.12-1.27 code = 698) PH, BLOOD (BEAKER) (test code = 7.41 1810) POCT-GLUCOSE [id number] 02:41:00 Test Item Value Reference Range Interpretation Comments POC-GLUCOSE METER 144 mg/dL 70-110 H TESTED AT [place] [address] ([facility]) (test code = [place] 1538) [address] POCT-GLUCOSE [id number] 00:30:00 Test Item Value Reference Range Interpretation Comments POC-GLUCOSE METER 171 mg/dL 70-110 H TESTED AT [place] [address] ([facility]) (test code = FOSTER Paul [place] 1538) [address] POTASSIUM-STAT [id number] 00:08:00 Test Item Value Reference Range Interpretation Comments POTASSIUM (BEAKER) (test code = 4.5 meq/L 3.6-5.5 379) POCT-GLUCOSE [id number] 23:30:00 Test Item Value Reference Range Interpretation Comments POC-GLUCOSE METER 159 mg/dL 70-110 H TESTED AT [place] [address] (BEAKER) (test code = [facility] [place] [address]) [address] POCT-GLUCOSE [id number] 21:08:00 Test Item Value Reference Range Interpretation Comments POC-GLUCOSE METER 194 mg/dL 70-110 H TESTED AT [place] [address] (BEAKER) (test code = [facility] [place] 1538) [address] POCT-GLUCOSE [id number] 21:08:00 Test Item Value Reference Range Interpretation Comments POC-GLUCOSE METER 230 mg/dL 70-110 H TESTED AT [place] [address] (BEAKER) (test code = [facility] [place] 1538) [address] CALCIUM, [id number] 19:23:00 Test Item Value Reference Range Interpretation Comments CALCIUM IONIZED (BEAKER) (test 1.14 mmol/L 1.12-1.27 code = 698) PH, BLOOD (BEAKER) (test code = 7.36 1810) POTASSIUM-STAT [id number] 19:23:00 Test Item Value Reference Range Interpretation Comments POTASSIUM (BEAKER) (test code = 5.1 meq/L 3.6-5.5 379) [id number] 17:27:00 Test Item Value Reference Range Interpretation Comments PHOSPHORUS (BEAKER) (test code = 2.2 mg/dL 2.3-4.7 L 604) [id number] 17:27:00 Test Item Value Reference Range Interpretation Comments MAGNESIUM (BEAKER) (test code = 2.1 mg/dL 1.6-2.6 627) PH, [id number] 17:03:00 Test Item Value Reference Range Interpretation Comments PH ARTERIAL (BEAKER) (test code = 383) 7.39 7.35-7.45 POCT-GLUCOSE [id number] 16:43:00 Test Item Value Reference Range Interpretation Comments POC-GLUCOSE METER 95 mg/dL 70-110 TESTED AT [place] [address] (BEAKER) (test code = [facility] [place] [address] 15[address]) POCT-GLUCOSE [id number] 14:41:00 Test Item Value Reference Range Interpretation Comments POC-GLUCOSE METER 134 mg/dL 70-110 H TESTED AT [place] [address] (BEAKER) (test code = FOSTER Paul [place] 1538) [address] RAD, ABDOMEN/KUB, 1 VIEW [id number] 13:16:00Reason for exam:- >constipationShould this be performed [...] MDReport Verified Date/Time: 01/16/2018 13:16:27 Reading Location: [facility] Reading Room Electronically signed by: KAY WALTER on01/16/2018 01:16 PMCALCIUM, [id number] 12:38:00 Test Item Value Reference Range Interpretation Comments CALCIUM IONIZED ([facility]) (test 1.14 mmol/L 1.12-1.27 code = 698) PH, BLOOD ([facility]) (test code = 7.40 1810) POCT-GLUCOSE [id number] 12:29:00 Test Item Value Reference Range Interpretation Comments POC-GLUCOSE METER 127 mg/dL 70-110 H TESTED AT [place] [address] ([facility]) (test code = FOSTER Paul [facility] 1538) [address] POCT-GLUCOSE [id number] 10:34:00 Test Item Value Reference Range Interpretation Comments POC-GLUCOSE METER 130 mg/dL 70-110 H TESTED AT [place] [address] ([facility]) (test code = FOSTER Paul [place] 1538) [address] POCT-GLUCOSE [id number] 09:10:00 Test Item Value Reference Range Interpretation Comments POC-GLUCOSE METER 151 mg/dL 70-110 H TESTED AT [place] [address] ([facility]) (test code = FOSTER Paul [facility] 1538) [address] HEPARIN ASSAY - [id number] 09:00:00 Test Item Value Reference Range Interpretation [...] H (test code = 413) OXYGEN SATURATION, [id number] 08:30:00 Test Item Value Reference Range Interpretation Comments O2 SATURATION (MEASURED) (BEAKER) 87.1 % (test code = 1455) RAD, CHEST, 1 VIEW, NON [id number] 08:11:00Reason for exam:->acute respiratory insufficiencyShould this be performed at the bedside?->YesFINAL REPORT CLINICAL HISTORY: acute respiratory insufficiency TECHNIQUE: 1 view of the chest. COMPARISON: 01/15/2018 IMPRESSION: The Winston-Moni catheter has been removed. The supporting lines and tubes are otherwise unchanged. There is no pneumothorax. Mild bilateral perihilar lung opacities have decreased. The cardiomediastinal silhouette is magnified by technique with sternotomy wires. Signed: Lorna Slade Verified Date/Time: 01/16/2018 08:11:02 Reading Location: [facility] Radiology Reading Room POCT- GLUCOSE [id number] 06:43:00 Test Item Value Reference Range Interpretation Comments POC-GLUCOSE METER 107 mg/dL 70-110 TESTED AT [facility] ([facility]) (test code = [place] 1538) [address] U/S, ABDOMINAL, [id number] 05:25:00Abdomen limited area? Add comment if clarification [...] MDReport Verified Date/Time: 01/16/2018 05:25:06 Reading Location: [facility] B1 C013[facility] Body Reading Room IC ACID, ARTERIAL, WHOLE [id number] 04:06:00 Test Item Value Reference Range Interpretation Comments LACTATE BLOOD ARTERIAL (2) 0.6 mmol/L 0.5-2.2 (BEAKER) (test code = 2874) Effective 01/04/2016: Units/Reference Range ChangeNew: 0.5-2.2 mmol/L Previous: 5-20 mg/dLSpecimen moderately [id number] 04:00:00 Test Item Value Reference Range Interpretation Comments PHOSPHORUS (BEAKER) (test code = 2.2 mg/dL 2.3-4.7 L 604) [id number] 04:00:00 Test Item Value Reference Range Interpretation Comments MAGNESIUM (BEAKER) (test code = 2.0 mg/dL 1.6-2.6 627) [id number] 04:00:00 Test Item Value Reference Range Interpretation Comments CALCIUM (BEAKER) (test code = 697) 8.5 mg/dL 8.4-10.2 COMPREHENSIVE METABOLIC [id number] 04:00:00 Test Item Value Reference Range Interpretation [...] DIALYSIS PATIEN TS. Specimen moderately ictericHEPATIC FUNCTION [id number] 04:00:00 Test Item Value Reference Range Interpretation [...] 6-55 H 347) Specimen moderately ictericBLOOD GAS, [id number] 03:51:00 Test Item Value Reference Range Interpretation [...] (test code = 1819) 60.0 % PROTHROMBIN [id number] 03:51:00 Test Item Value Reference Range Interpretation Comments PROTIME ([facility]) (test code = 15.2 seconds 11.7-14.7 H 759) INR ([facility]) (test code = 370) 1.2 <=5.9 RECOMMENDED COUMADIN/WARFARIN INR THERAPY RANGESSTANDARD DOSE: 2.0 - 3.0 Includes: PROPHYLAXIS forvenous thrombosis, systemic embolization; TREATMENT for venous thrombosis and/or pulmonary embolus.HIGH RISK: Target INR is 2.5-3.5 for patients with mechanical heart valves.CALCIUM, [id number] 03:51:00 Test Item Value Reference Range Interpretation Comments CALCIUM IONIZED ([facility]) (test 1.17 mmol/L 1.12-1.27 code = 698) PH, BLOOD ([facility]) (test code = 7.42 1810) POCT-GLUCOSE [id number] 02:08:00 Test Item Value Reference Range Interpretation Comments POC-GLUCOSE METER 110 mg/dL 70-110 TESTED AT [place] [address] ([facility]) (test code = FOSTER Paul [facility] 1538) [address] POCT-GLUCOSE [id number] 01:14:00 Test Item Value Reference Range Interpretation Comments POC-GLUCOSE METER 107 mg/dL 70-110 TESTED AT [place] [address] ([facility]) (test code = [place] 1538) [address] POCT-GLUCOSE [id number] 00:29:00 Test Item Value Reference Range Interpretation Comments POC-GLUCOSE METER 129 mg/dL 70-110 H TESTED AT [place] [address] ([facility]) (test code = [place] 1538) [address] POCT-GLUCOSE [id number] 23:07:00 Test Item Value Reference Range Interpretation Comments POC-GLUCOSE METER 152 mg/dL 70-110 H TESTED AT [place] [address] ([facility]) (test code = FOSTER Paul [facility] 1538) [address] POCT-GLUCOSE [id number] 22:09:00 Test Item Value Reference Range Interpretation Comments POC-GLUCOSE METER 171 mg/dL 70-110 H TESTED AT [place] [address] ([facility]) (test code = [place] 1538) [address] POCT-GLUCOSE [id number] 21:13:00 Test Item Value Reference Range Interpretation Comments POC-GLUCOSE METER 171 mg/dL 70-110 H TESTED AT [facility] 67 ([facility]) (test code = FOSTER Paul [facility] 1538) [address] CALCIUM, [id number] 20:50:00 Test Item Value Reference Range Interpretation Comments CALCIUM IONIZED ([facility]) (test 1.15 mmol/L 1.12-1.27 code = 698) PH, BLOOD ([facility]) (test code = 7.34 1810) POCT-GLUCOSE [id number] 20:21:00 Test Item Value Reference Range Interpretation Comments POC-GLUCOSE METER 206 mg/dL 70-110 H TESTED AT [facility] 67 ([facility]) (test code = FOSTER Paul [facility] 1538) [address] POCT-GLUCOSE [id number] 19:16:00 Test Item Value Reference Range Interpretation Comments POC-GLUCOSE METER 197 mg/dL 70-110 H TESTED AT [place] [address] ([facility]) (test code = FOSTER Paul [facility] 1538) [address] [id number] 17:15:00 Test Item Value Reference Range Interpretation Comments PHOSPHORUS (BEAKER) (test code = 4.1 mg/dL 2.3-4.7 604) [id number] 17:15:00 Test Item Value Reference Range Interpretation Comments MAGNESIUM (BEAKER) (test code = 1.9 mg/dL 1.6-2.6 627) EEG AWAKE AND [id number] 14:56:00For STAT EEG- after 5 PM weekdays, weekends and holidays, page the on-call EEG TechReason for exam:->AMSShould this be performed at the bedside?->YesDate(s) of EE01/15/2018DATE OF REPORT: 01/15/2018ACC: [id number] Number: [id number] Location: Inpatient ICUStart time: 13:18Stop time: 13:40ICD-10: R41.82CPT Code: 21096 HISTORY: 62 y/o man with hxof AFib, [...] Kwon MD, MSClinic al Neurophysiology/Epilepsy Attending HEPARIN [id number] 13:21:00 Test Item Value Reference Range Interpretation Comments HEPARIN ANTIBODY (musiXmatch) (test code Negative Negative = 646) HEPARIN ANTIBODY OD ([facility] (test 0.076 <0.400 code = 2659) 4T TOTAL SCORE ([facility]) (test code = 5 5877) Probability of HIT based on scoring system: 6-8 = High probability; 4-5 = intermediate probability;0-3 = low probabilityPOCT-GLUCOSE [id number] 12:26:00 Test Item Value Reference Range Interpretation Comments POC-GLUCOSE METER 128 mg/dL 70-110 H TESTED AT [facility] 67[address] ([facility]) (test code = MARIA GOSMAN [place] 1538) [address] FIBRIN SOLUBLE [id number] 11:02:00 Test Item Value Reference Range Interpretation Comments FIBRIN SOLUBLE MONOMER ([employer]) Negative (test code = 1416) HEPARIN ASSAY - [id number] 10:20:00 Test Item Value Reference Range Interpretation Comments UNFRACTIONATED HEPARIN-ANTI 10A < u/ml 0.30-0.70 L (BEAKER) (test code = 1606) Recommendations for Monitoring Unfractionated Heparin Therapeutic Range: 0.3- 0.7 u/mL with continuous IV ibvclyelH-[id number] 10:14:00 Test Item Value Reference Range Interpretation [...] of thrombosis is within 95-100% range. GLUCOSE-STAT [id number] 10:03:00 Test Item Value Reference Range Interpretation Comments GLUCOSE RANDOM (BEAKER) (test code 151 mg/dL 70-110 H = 652) CALCIUM, [id number] 10:02:00 Test Item Value Reference Range Interpretation Comments CALCIUM IONIZED (BEAKER) (test 1.13 mmol/L 1.12-1.27 code = 698) PH, BLOOD (BEAKER) (test code = 7.36 1810) POTASSIUM-STAT [id number] 10:01:00 Test Item Value Reference Range Interpretation Comments POTASSIUM (BEAKER) (test code = 4.3 meq/L 3.6-5.5 379) CBC W/PLT COUNT & AUTO [id number] 07:43:00 Test Item Value Reference Range Interpretation [...] = 2801) RAD, CHEST, 1 VIEW, NON [id number] 04:00:00Reason for exam:->acute respiratory insufficiencyShould this be performed at the bedside?->Yes Addendum BeginsREPORT STATUS:A Correction: Comparison is made to previous dated 01/14/2018. Signed: Kellen Parra MDReport Verified Date/Time: 01/15/2018 04:00:43 Reading Location: [address] Reading RoomAddendum EndsFINAL REPORT CLINICAL ADEEL CATION: Respiratory insufficiency Comparison: 01/15/2018 The cardiomediastinal contours are stable. Central pulmonary vascular congestion and bilateral parenchymal opacities are unchanged. There is no pneumothorax. Support lines are stable. Signed: Kellen Parra MDReport Verified Date/Time: 01/15/201803:46:27 Reading Location: [address] Reading Room [id number] 03:36:00 Test Item Value Reference Range Interpretation Comments PHOSPHORUS (BEAKER) (test code = 2.7 mg/dL 2.3-4.7 604) [id number] 03:36:00 Test Item Value Reference Range Interpretation Comments MAGNESIUM (BEAKER) (test code = 2.0 mg/dL 1.6-2.6 627) COMPREHENSIVE METABOLIC [id number] 03:36:00 Test Item Value Reference Range Interpretation [...] DIALYSIS PATIEN TS. Specimen slightly ictericHEPATIC FUNCTION [id number] 03:36:00 Test Item Value Reference Range Interpretation [...] U/L 6-55 H 347) Specimen slightly ictericPROTHROMBIN [id number] 03:35:00 Test Item Value Reference Range Interpretation [...] mmol/L Previous: 5-20 mg/dLSpecimen slightly ictericBLOOD GAS, [id number] 03:29:00 Test Item Value Reference Range Interpretation [...] code = 1819) 40.0 % OXYGEN SATURATION, [id number] 03:26:00 Test Item Value Reference Range Interpretation Comments O2 SATURATION (MEASURED) (BEAKER) 72.5 % (test code = 1455) CALCIUM, [id number] 00:17:00 Test Item Value Reference Range Interpretation Comments CALCIUM IONIZED (BEAKER) (test 1.19 mmol/L 1.12-1.27 code = 698) PH, BLOOD (BEAKER) (test code = 7.36 1810) POCT-GLUCOSE [id number] 00:15:00 Test Item Value Reference Range Interpretation Comments POC-GLUCOSE METER 144 mg/dL 70-110 H TESTED AT [place] [address] ([facility]) (test code = FOSTER Paul [facility] 1538) [address] POCT-GLUCOSE [id number] 22:43:00 Test Item Value Reference Range Interpretation Comments POC-GLUCOSE METER 98 mg/dL 70-110 TESTED AT [place] [address] ([facility]) (test code = FOSTER Paul [facility] [address]38) POCT-GLUCOSE [id number] 22:43:00 Test Item Value Reference Range Interpretation Comments POC-GLUCOSE METER 80 mg/dL 70-110 TESTED AT [place] [address] (BEAKER) (test code = [place] [address] 1538) VANCOMYCIN LEVEL, [id number] 20:20:00 Test Item Value Reference Range Interpretation Comments VANCOMYCIN TROUGH (BEAKER) (test 20.1 ug/mL 10.0-20.0 H code = 522) Before vanc [id number] 16:52:00 Test Item Value Reference Range Interpretation Comments PHOSPHORUS (BEAKER) (test code = 1.7 mg/dL 2.3-4.7 L 604) [id number] 16:52:00 Test Item Value Reference Range Interpretation Comments MAGNESIUM (BEAKER) (test code = 2.3 mg/dL 1.6-2.6 627) [id number] 16:39:00 Test Item Value Reference Range Interpretation Comments AMMONIA (BEAKER) (test code = 348) 32 mol/L 18-72 PH, [id number] 16:01:00 Test Item Value Reference Range Interpretation Comments PH ARTERIAL (BEAKER) (test code = 383) 7.42 7.35-7.45 GLUCOSE-STAT [id number] 16:01:00 Test Item Value Reference Range Interpretation Comments GLUCOSE RANDOM (BEAKER) (test code = 95 mg/dL 70-110 652) POTASSIUM-STAT [id number] 16:01:00 Test Item Value Reference Range Interpretation Comments POTASSIUM (BEAKER) (test code = 4.3 meq/L 3.6-5.5 379) CALCIUM, [id number] 16:01:00 Test Item Value Reference Range Interpretation Comments CALCIUM IONIZED (BEAKER) (test 1.28 mmol/L 1.12-1.27 H code = 698) PH, BLOOD (BEAKER) (test code = 7.42 1810) CALCIUM, [id number] 12:19:00 Test Item Value Reference Range Interpretation Comments CALCIUM IONIZED (BEAKER) (test 1.36 mmol/L 1.12-1.27 H code = 698) PH, BLOOD (BEAKER) (test code = 7.41 1810) GLUCOSE-STAT [id number] 12:17:00 Test Item Value Reference Range Interpretation Comments GLUCOSE RANDOM (BEAKER) (test code = 94 mg/dL 70-110 652) POTASSIUM-STAT [id number] 12:17:00 Test Item Value Reference Range Interpretation Comments POTASSIUM (BEAKER) (test code = 4.3 meq/L 3.6-5.5 379) [id number] 11:34:00 Test Item Value Reference Range Interpretation Comments MAGNESIUM (BEAKER) (test code = 2.1 mg/dL 1.6-2.6 627) BASIC METABOLIC [id number] 11:34:00 Test Item Value Reference Range Interpretation [...] DIALYSIS PATIEN TS. Specimen slightly ictericHEPATIC FUNCTION [id number] 11:34:00 Test Item Value Reference Range Interpretation [...] 6-55 H 347) Specimen slightly ictericBLOOD GAS, [id number] 09:44:00 Test Item Value Reference Range Interpretation [...] (test code = 1819) 100.0 % GLUCOSE-STAT [id number] 09:42:00 Test Item Value Reference Range Interpretation Comments GLUCOSE RANDOM (BEAKER) (test code = 95 mg/dL 70-110 652) POTASSIUM-STAT [id number] 09:42:00 Test Item Value Reference Range Interpretation Comments POTASSIUM (BEAKER) (test code = 4.5 meq/L 3.6-5.5 379) CALCIUM, [id number] 09:38:00 Test Item Value Reference Range Interpretation Comments CALCIUM IONIZED (BEAKER) (test 1.26 mmol/L 1.12-1.27 code = 698) PH, BLOOD (BEAKER) (test code = 7.41 1810) HEPARIN ASSAY - [id number] 08:44:00 Test Item Value Reference Range Interpretation Comments UNFRACTIONATED HEPARIN-ANTI 10A < u/ml 0.30-0.70 L (BEAKER) (test code = 1606) Recommendations for Monitoring Unfractionated Heparin Therapeutic Range: 0.3- 0.7 u/mL with continuous IV infusionGLUCOSE-STAT [id number] 06:41:00 Test Item Value Reference Range Interpretation [...] (test 0.0 % 0.0-5.0 code = 1414) [id number] 05:05:00 Test Item Value Reference Range Interpretation Comments PHOSPHORUS (BEAKER) (test code = 2.5 mg/dL 2.3-4.7 604) [id number] 05:05:00 Test Item Value Reference Range Interpretation Comments MAGNESIUM (BEAKER) (test code = 2.1 mg/dL 1.6-2.6 627) HEPATIC FUNCTION [id number] 05:05:00 Test Item Value Reference Range Interpretation [...] 1266 U/L 6-55 H 347) Specimen slightly [id number] 05:05:00 Test Item Value Reference Range Interpretation Comments CALCIUM (BEAKER) (test code = 697) 9.0 mg/dL 8.4-10.2 LACTATE DEHYDROGENASE (LDH)2018-01-14 05:05:00 Test Item Value Reference Range Interpretation Comments LACTATE DEHYDROGENASE (BEAKER) (test 667 U/L 125-220 H code = 635) PROTHROMBIN [id number] 05:05:00 Test Item Value Reference Range Interpretation Comments PROTIME (BEAKER) (test code = 15.2 seconds 11.7-14.7 H 759) INR (BEAKER) (test code = 370) 1.2 <=5.9 RECOMMENDED COUMADIN/WARFARIN INR THERAPY RANGESSTANDARD DOSE: 2.0 - 3.0 Includes: PROPHYLAXIS forvenous thrombosis, systemic embolization; TREATMENT for venous thrombosis and/or pulmonary embolus.HIGH RISK: Target INR is 2.5-3.5 for patients with mechanical heart valves.[id number] 05:05:00 Test Item Value Reference Range Interpretation Comments FIBRINOGEN LEVEL (BEAKER) (test 280 mg/dl 225-434 code = 658) RAD, CHEST, 1 VIEW, NON [id number] 04:57:00Reason for exam:- >impella/ECMO/intubationShould this be performed at the bedside?->YesFINAL REPORT CLINICAL INDICATION: Support lines. Comparison: 01/13/2018 The cardiomediastinal contours are stable. Cardiac opacities may reflect atelectasis but pneumonitis should be excluded clinically. There is no pneumothorax. Support lines are stable. Signed: Kellen Parra MDReport Verified Date/Time: 01/14/2018 04:57:02 Reading Location: [address] Reading Room LACTIC ACID, ARTERIAL, WHOLE [id number] 04:55:00 Test Item Value Reference Range Interpretation [...] H (BEAKER) (test code = 413) CALCIUM, [id number] 04:39:00 Test Item Value Reference Range Interpretation Comments CALCIUM IONIZED (BEAKER) (test 1.20 mmol/L 1.12-1.27 code = 698) PH, BLOOD (BEAKER) (test code = 7.37 1810) OXYGEN SATURATION, [id number] 04:38:00 Test Item Value Reference Range Interpretation Comments O2 SATURATION (MEASURED) (BEAKER) 75.3 % (test code = 1455) BLOOD GAS, [id number] 04:37:00 Test Item Value Reference Range Interpretation [...] (test code = 1819) 40.0 % GLUCOSE-STAT [id number] 04:37:00 Test Item Value Reference Range Interpretation Comments GLUCOSE RANDOM (BEAKER) (test code 154 mg/dL 70-110 H = 652) GLUCOSE-STAT [id number] 02:52:00 Test Item Value Reference Range Interpretation Comments GLUCOSE RANDOM (BEAKER) (test code 179 mg/dL 70-110 H = 652) GLUCOSE-STAT [id number] 01:26:00 Test Item Value Reference Range Interpretation Comments GLUCOSE RANDOM (BEAKER) (test code 195 mg/dL 70-110 H = 652) [id number] 00:08:00 Test Item Value Reference Range Interpretation Comments POTASSIUM (BEAKER) (test code = 4.2 meq/L 3.5-5.1 379) [id number] 00:08:00 Test Item Value Reference Range Interpretation Comments GLUCOSE RANDOM (BEAKER) (test code 237 mg/dL 70-105 H = 652) CBC W/PLT COUNT & AUTO [id number] 22:28:00 Test Item Value Reference Range Interpretation [...] = 413) RAD, CHEST, 1 VIEW, NON [id number] 21:50:00Reason for exam:->chest tubes/intubationShould this be performed [...] Lines and tubes are stable. Signed: Kyle Aritaeport Verified Date/Time: 01/13/2018 21:50:50 Reading Location: [address] Consult Reading Room THROMBOELASTOGRAPH (TEG)2018-01-13 21:45:00 Test [...] % 0.0-5.0 code = 1414) BASIC METABOLIC [id number] 21:35:00 Test Item Value Reference Range Interpretation [...] APPLICABLE FOR DIALYSIS PATIEN TS. Specimen slightly [id number] 21:06:00 Test Item Value Reference Range Interpretation Comments PHOSPHORUS (BEAKER) (test code = 3.7 mg/dL 2.3-4.7 604) [id number] 21:06:00 Test Item Value Reference Range Interpretation Comments MAGNESIUM (BEAKER) (test code = 2.0 mg/dL 1.6-2.6 627) LACTIC ACID, ARTERIAL, WHOLE [id number] 21:06:00 Test Item Value Reference Range Interpretation Comments LACTATE BLOOD ARTERIAL (2) 1.8 mmol/L 0.5-2.2 (BEAKER) (test code = 2874) Effective 01/04/2016: Units/Reference Range ChangeNew: 0.5-2.2 mmol/L Previous: 5-20 mg/dLSpecimen slightly [id number] 21:01:00 Test Item Value Reference Range Interpretation Comments PARTIAL THROMBOPLASTIN TIME 35.1 seconds 22.5-36.0 (BEAKER) (test code = 760) [id number] 21:00:00 Test Item Value Reference Range Interpretation Comments FIBRINOGEN LEVEL (BEAKER) (test 253 mg/dl 225-434 code = 658) PROTHROMBIN [id number] 20:59:00 Test Item Value Reference Range Interpretation Comments PROTIME (BEAKER) (test code = 16.4 seconds 11.7-14.7 H 759) INR (BEAKER) (test code = 370) 1.3 <=5.9 RECOMMENDED COUMADIN/WARFARIN INR THERAPY RANGESSTANDARD DOSE: 2.0 - 3.0 Includes: PROPHYLAXIS forvenous thrombosis, systemic embolization; TREATMENT for venous thrombosis and/or pulmonary embolus.HIGH RISK: Target INR is 2.5-3.5 for patients with mechanical heart valves.BLOOD GAS, [id number] 20:47:00 Test Item Value Reference Range Interpretation [...] (test code = 1819) 40.0 % GLUCOSE-STAT [id number] 20:47:00 Test Item Value Reference Range Interpretation Comments GLUCOSE RANDOM (BEAKER) (test code 235 mg/dL 70-110 H = 652) CALCIUM, [id number] 20:47:00 Test Item Value Reference Range Interpretation Comments CALCIUM IONIZED (BEAKER) (test 0.97 mmol/L 1.12-1.27 L code = 698) PH, BLOOD (BEAKER) (test code = 7.39 1810) HGB/HCT (H&H) - STAT [id number] 20:46:00 Test Item Value Reference Range Interpretation Comments HEMOGLOBIN (BEAKER) (test code = 7.7 g/dL 13.0-16.8 L 410) HEMATOCRIT (BEAKER) (test code = 23.0 % 40.0-50.0 L 411) POTASSIUM-STAT [id number] 20:46:00 Test Item Value Reference Range Interpretation Comments POTASSIUM (BEAKER) (test code = 3.4 meq/L 3.6-5.5 L 379) SODIUM NA-STAT [id number] 20:46:00 Test Item Value Reference Range Interpretation Comments SODIUM (BEAKER) (test code = 381) 133 meq/L 135-148 L OXYGEN SATURATION, [id number] 20:42:00 Test Item Value Reference Range Interpretation Comments O2 SATURATION (MEASURED) (BEAKER) 74.1 % (test code = 1455) BLOOD GAS, [id number] 18:58:00 Test Item Value Reference Range Interpretation [...] code = 1819) 100.0 % SODIUM NA-STAT [id number] 18:58:00 Test Item Value Reference Range Interpretation Comments SODIUM (BEAKER) (test code = 381) 131 meq/L 135-148 L POTASSIUM-STAT [id number] 18:58:00 Test Item Value Reference Range Interpretation Comments POTASSIUM (BEAKER) (test code = 3.4 meq/L 3.6-5.5 L 379) GLUCOSE-STAT [id number] 18:58:00 Test Item Value Reference Range Interpretation Comments GLUCOSE RANDOM (BEAKER) (test code 214 mg/dL 70-110 H = 652) HGB/HCT (H&H) - STAT [id number] 18:58:00 Test Item Value Reference Range Interpretation [...] % 0.0-5.0 code = 1414) BLOOD GAS, [id number] 18:11:00 Test Item Value Reference Range Interpretation [...] code = 1819) 97.0 % SODIUM NA-STAT [id number] 18:11:00 Test Item Value Reference Range Interpretation Comments SODIUM (BEAKER) (test code = 381) 132 meq/L 135-148 L GLUCOSE-STAT [id number] 18:11:00 Test Item Value Reference Range Interpretation Comments GLUCOSE RANDOM (BEAKER) (test code 200 mg/dL 70-110 H = 652) HGB/HCT (H&H) - STAT [id number] 18:11:00 Test Item Value Reference Range Interpretation Comments HEMOGLOBIN (BEAKER) (test code = 8.2 g/dL 13.0-16.8 L 410) HEMATOCRIT (BEAKER) (test code = 24.0 % 40.0-50.0 L 411) POTASSIUM-STAT [id number] 18:07:00 Test Item Value Reference Range Interpretation Comments POTASSIUM (BEAKER) (test code = 3.5 meq/L 3.6-5.5 L 379) [id number] 16:37:00 Test Item Value Reference Range Interpretation Comments PHOSPHORUS (BEAKER) (test code = 2.5 mg/dL 2.3-4.7 604) [id number] 16:37:00 Test Item Value Reference Range Interpretation Comments MAGNESIUM (BEAKER) (test code = 2.1 mg/dL 1.6-2.6 627) [id number] 16:29:00 Test Item Value Reference Range Interpretation [...] for patients with mechanical heart valves.BLOOD GAS, [id number] 16:16:00 Test Item Value Reference Range Interpretation [...] (test code = 1819) 40.0 % CALCIUM, [id number] 16:14:00 Test Item Value Reference Range Interpretation Comments CALCIUM IONIZED (BEAKER) (test 1.09 mmol/L 1.12-1.27 L code = 698) PH, BLOOD (BEAKER) (test code = 7.64 1810) GLUCOSE-STAT [id number] 16:12:00 Test Item Value Reference Range Interpretation Comments GLUCOSE RANDOM (BEAKER) (test code 182 mg/dL 70-110 H = 652) CALCIUM, [id number] 12:53:00 Test Item Value Reference Range Interpretation Comments CALCIUM IONIZED (BEAKER) (test 1.12 mmol/L 1.12-1.27 code = 698) PH, BLOOD (BEAKER) (test code = 7.51 1810) BLOOD GAS, [id number] 12:53:00 Test Item Value Reference Range Interpretation [...] 1819) 40.0 % HGB/HCT (H&H) - STAT [id number] 12:53:00 Test Item Value Reference Range Interpretation Comments HEMOGLOBIN (BEAKER) (test code = 8.3 g/dL 13.0-16.8 L 410) HEMATOCRIT (BEAKER) (test code = 24.0 % 40.0-50.0 L 411) GLUCOSE-STAT [id number] 12:53:00 Test Item Value Reference Range Interpretation Comments GLUCOSE RANDOM (BEAKER) (test code 185 mg/dL 70-110 H = 652) POTASSIUM-STAT [id number] 12:52:00 Test Item Value Reference Range Interpretation Comments POTASSIUM (BEAKER) (test code = 3.7 meq/L 3.6-5.5 379) CBC W/PLT COUNT & AUTO [id number] 11:04:00 Test Item Value Reference Range Interpretation [...] 0-0 H (test code = 413) POTASSIUM-STAT [id number] 10:49:00 Test Item Value Reference Range Interpretation Comments POTASSIUM (BEAKER) (test code = 3.8 meq/L 3.6-5.5 379) HEPARIN ASSAY - [id number] 09:55:00 Test Item Value Reference Range Interpretation Comments UNFRACTIONATED HEPARIN-ANTI 10A 0.14 u/ml 0.30-0.70 L (BEAKER) (test code = 1606) Recommendations for Monitoring Unfractionated Heparin Therapeutic Range: 0.3- 0.7 u/mL with continuous IV [id number] 09:54:00 Test Item Value Reference Range Interpretation Comments PARTIAL THROMBOPLASTIN TIME 57.6 seconds 22.5-36.0 H (BEAKER) (test code = 760) BLOOD GAS, [id number] 09:33:00 Test Item Value Reference Range Interpretation [...] (test code = 1819) 40.0 % GLUCOSE-STAT [id number] 09:33:00 Test Item Value Reference Range Interpretation Comments GLUCOSE RANDOM (BEAKER) (test code 192 mg/dL 70-110 H = 652) GLUCOSE-STAT [id number] 09:33:00 Test Item Value Reference Range Interpretation Comments GLUCOSE RANDOM (BEAKER) (test code 192 mg/dL 70-110 H = 652) CALCIUM, [id number] 09:32:00 Test Item Value Reference Range Interpretation Comments CALCIUM IONIZED (BEAKER) (test 1.15 mmol/L 1.12-1.27 code = 698) PH, BLOOD (BEAKER) (test code = 7.51 1810) BLOOD GAS, [id number] 07:23:00 Test Item Value Reference Range Interpretation [...] % 0.0-5.0 code = 1414) BLOOD GAS, [id number] 06:13:00 Test Item Value Reference Range Interpretation [...] code = 1819) 40.0 % BLOOD GAS, [id number] 05:13:00 Test Item Value Reference Range Interpretation [...] (BEAKER) (test code = 1819) 100.0 % [id number] 04:41:00 Test Item Value Reference Range Interpretation Comments PARTIAL THROMBOPLASTIN TIME 61.3 seconds 22.5-36.0 H (BEAKER) (test code = 760) RAD, CHEST, 1 VIEW, NON [id number] 04:38:00Reason for exam:- >impella/ECMO/intubationShould this be performed at the bedside?->YesFINAL REPORT CLINICAL INDICATION: Support lines. Comparison: 01/12/2018 The cardiomediastinal contours are stable. Central pulmonary vascular prominence and bilateral parenchymalopacities are previous. There is no pneumothorax. Support lines are stable. Signed: Kellen Parraeport Verified Date/Time: 01/13/2018 04:38:41 Reading Location: [address] Reading Room HEPATIC FUNCTION [id number] 04:25:00 Test Item Value Reference Range Interpretation [...] 2232 U/L 6-55 H 347) Specimen slightly [id number] 04:19:00 Test Item Value Reference Range Interpretation Comments PHOSPHORUS (BEAKER) (test code = 4.1 mg/dL 2.3-4.7 604) [id number] 04:19:00 Test Item Value Reference Range Interpretation Comments MAGNESIUM (BEAKER) (test code = 1.9 mg/dL 1.6-2.6 627) [id number] 04:19:00 Test Item Value Reference Range Interpretation Comments CALCIUM (BEAKER) (test code = 697) 8.6 mg/dL 8.4-10.2 BASIC METABOLIC [id number] 04:19:00 Test Item Value Reference Range Interpretation [...] 1658 U/L 125-220 H code = 635) [id number] 04:16:00 Test Item Value Reference Range Interpretation Comments FIBRINOGEN LEVEL (BEAKER) (test 299 mg/dl 225-434 code = 658) LACTIC ACID, ARTERIAL, WHOLE [id number] 04:16:00 Test Item Value Reference Range Interpretation Comments LACTATE BLOOD ARTERIAL (2) 0.8 mmol/L 0.5-2.2 (BEAKER) (test code = 2874) Effective 01/04/2016: Units/Reference Range ChangeNew: 0.5-2.2 mmol/L Previous: 5-20 mg/dLSpecimen slightly ictericPROTHROMBIN [id number] 04:15:00 Test Item Value Reference Range Interpretation Comments PROTIME (BEAKER) (test code = 15.8 seconds 11.7-14.7 H 759) INR (BEAKER) (test code = 370) 1.3 <=5.9 RECOMMENDED COUMADIN/WARFARIN INR THERAPY RANGESSTANDARD DOSE: 2.0 - 3.0 Includes: PROPHYLAXIS forvenous thrombosis, systemic embolization; TREATMENT for venous thrombosis and/or pulmonary embolus.HIGH RISK: Target INR is 2.5-3.5 for patients with mechanical heart valves.CALCIUM, [id number] 04:04:00 Test Item Value Reference Range Interpretation Comments CALCIUM IONIZED (BEAKER) (test 1.15 mmol/L 1.12-1.27 code = 698) PH, BLOOD (BEAKER) (test code = 7.33 1810) BLOOD GAS, [id number] 04:03:00 Test Item Value Reference Range Interpretation [...] (test code = 1819) 40.0 % PLATELET [id number] 03:58:00 Test Item Value Reference Range Interpretation Comments PLATELET COUNT (BEAKER) (test code 89 K/CU MM 150-450 L = 756) OXYGEN SATURATION, [id number] 03:57:00 Test Item Value Reference Range Interpretation Comments O2 SATURATION (MEASURED) (BEAKER) 79.4 % (test code = 1455) BLOOD GAS, [id number] 01:19:00 Test Item Value Reference Range Interpretation [...] (test code = 1819) 40.0 % GLUCOSE-STAT [id number] 01:19:00 Test Item Value Reference Range Interpretation Comments GLUCOSE RANDOM (BEAKER) (test code 177 mg/dL 70-110 H = 652) POTASSIUM-STAT [id number] 01:18:00 Test Item Value Reference Range Interpretation Comments POTASSIUM (BEAKER) (test code = 4.0 meq/L 3.6-5.5 379) CALCIUM, [id number] 01:17:00 Test Item Value Reference Range Interpretation [...] (test 0.0 % 0.0-5.0 code = 1414) [id number] 20:36:00 Test Item Value Reference Range Interpretation Comments POTASSIUM (BEAKER) (test code = 4.2 meq/L 3.5-5.1 379) [id number] 20:36:00 Test Item Value Reference Range Interpretation Comments MAGNESIUM (BEAKER) (test code = 1.8 mg/dL 1.6-2.6 627) [id number] 20:36:00 Test Item Value Reference Range Interpretation Comments PHOSPHORUS (BEAKER) (test code = 3.5 mg/dL 2.3-4.7 604) LACTIC ACID, ARTERIAL, WHOLE [id number] 20:33:00 Test Item Value Reference Range Interpretation Comments LACTATE BLOOD ARTERIAL (2) 0.8 mmol/L 0.5-2.2 (BEAKER) (test code = 2874) Effective 01/04/2016: Units/Reference Range ChangeNew: 0.5-2.2 mmol/L Previous: 5-20 mg/dLSpecimen slightly ictericBLOOD GAS, [id number] 20:20:00 Test Item Value Reference Range Interpretation [...] (test code = 1819) 40.0 % GLUCOSE-STAT [id number] 20:20:00 Test Item Value Reference Range Interpretation Comments GLUCOSE RANDOM (BEAKER) (test code 180 mg/dL 70-110 H = 652) [id number] 18:34:00 Test Item Value Reference Range Interpretation Comments GLUCOSE RANDOM (BEAKER) (test code 218 mg/dL 70-105 H = 652) BLOOD GAS, [id number] 18:18:00 Test Item Value Reference Range Interpretation [...] (BEAKER) (test code = 1819) 40.0 % [id number] 17:12:00 Test Item Value Reference Range Interpretation Comments PARTIAL THROMBOPLASTIN TIME 54.1 seconds 22.5-36.0 H (BEAKER) (test code = 760) [id number] 17:12:00 Test Item Value Reference Range Interpretation Comments FIBRINOGEN LEVEL (BEAKER) (test 285 mg/dl 225-434 code = 658) PROTHROMBIN [id number] 17:10:00 Test Item Value Reference Range Interpretation [...] ChangeNew: 0.5-2.2 mmol/L Previous: 5-20 mg/dLSpecimen slightly [id number] 17:01:00 Test Item Value Reference Range Interpretation Comments POTASSIUM (BEAKER) (test code = 4.5 meq/L 3.5-5.1 379) [id number] 17:01:00 Test Item Value Reference Range Interpretation Comments GLUCOSE RANDOM (BEAKER) (test code 239 mg/dL 70-105 H = 652) PLATELET [id number] 16:46:00 Test Item Value Reference Range Interpretation Comments PLATELET COUNT (BEAKER) (test code 86 K/CU MM 150-450 L = 756) BLOOD GAS, [id number] 16:36:00 Test Item Value Reference Range Interpretation [...] (test 37.0 C code = 1818) CALCIUM, [id number] 16:36:00 Test Item Value Reference Range Interpretation Comments CALCIUM IONIZED (BEAKER) (test 1.08 mmol/L 1.12-1.27 L code = 698) PH, BLOOD (BEAKER) (test code = 7.46 1810) [id number] 15:00:00 Test Item Value Reference Range Interpretation Comments POTASSIUM (BEAKER) (test code = 4.7 meq/L 3.5-5.1 379) [id number] 15:00:00 Test Item Value Reference Range Interpretation Comments GLUCOSE RANDOM (BEAKER) (test code 210 mg/dL 70-105 H = 652) BLOOD GAS, [id number] 14:42:00 Test Item Value Reference Range Interpretation [...] 40.0 % RAD, CHEST, 1 VIEW, NON [id number] 14:41:00Reason for exam:->chest tube insertionFINAL REPORT CHEST [...] MDReport Verified Date/Time: 01/12/2018 14:41:22 Reading Location: [facility] C013T Transitional Reading Room MBOELASTOGRAPH (TEG)2018-01-12 12:43:00 [...] (test 0.0 % 0.0-5.0 code = 1414) [id number] 11:23:00 Test Item Value Reference Range Interpretation [...] exclusion of thrombosis is within 95-100% range. [id number] 10:10:00 Test Item Value Reference Range Interpretation Comments MAGNESIUM (BEAKER) 2.1 mg/dL 1.6-2.6 Specimen slightly (test code = 627) hemolyzed [id number] 10:10:00 Test Item Value Reference Range Interpretation Comments PHOSPHORUS (BEAKER) 4.2 mg/dL 2.3-4.7 Specimen slightly (test code = 604) hemolyzed [id number] 10:10:00 Test Item Value Reference Range Interpretation Comments POTASSIUM (BEAKER) 5.0 meq/L 3.5-5.1 Specimen slightly (test code = 379) hemolyzed [id number] 10:10:00 Test Item Value Reference Range Interpretation Comments GLUCOSE RANDOM (BEAKER) (test code 204 mg/dL 70-105 H = 652) [id number] 10:07:00 Test Item Value Reference Range Interpretation Comments FIBRINOGEN LEVEL (BEAKER) (test 251 mg/dl 225-434 code = 658) ANTITHROMBIN [id number] 10:04:00 Test Item Value Reference Range Interpretation Comments ANTITHROMBIN III ACTIVITY (BEAKER) 46.0 % 80.0-120.0 L (test code = 711) [id number] 09:58:00 Test Item Value Reference Range Interpretation Comments PARTIAL THROMBOPLASTIN TIME 59.8 seconds 22.5-36.0 H (BEAKER) (test code = 760) PROTHROMBIN [id number] 09:57:00 Test Item Value Reference Range Interpretation Comments PROTIME (BEAKER) (test code = 19.3 seconds 11.7-14.7 H 759) INR (BEAKER) (test code = 370) 1.6 <=5.9 RECOMMENDED COUMADIN/WARFARIN INR THERAPY RANGESSTANDARD DOSE: 2.0 - 3.0 Includes: PROPHYLAXIS forvenous thrombosis, systemic embolization; TREATMENT for venous thrombosis and/or pulmonary embolus.HIGH RISK: Target INR is 2.5-3.5 for patients with mechanical heart valves.PLATELET [id number] 09:49:00 Test Item Value Reference Range Interpretation Comments PLATELET COUNT (BEAKER) (test code 94 K/CU MM 150-450 L = 756) BLOOD GAS, [id number] 09:47:00 Test Item Value Reference Range Interpretation [...] (test code = 1819) 40.0 % CALCIUM, [id number] 09:46:00 Test Item Value Reference Range Interpretation Comments CALCIUM IONIZED (BEAKER) (test 1.12 mmol/L 1.12-1.27 code = 698) PH, BLOOD (BEAKER) (test code = 7.47 1810) HEPARIN ASSAY - [id number] 08:21:00 Test Item Value Reference Range Interpretation Comments UNFRACTIONATED HEPARIN-ANTI 10A < u/ml 0.30-0.70 L (BEAKER) (test code = 1606) Recommendations for Monitoring Unfractionated Heparin Therapeutic Range: 0.3- 0.7 u/mL with continuous IV infusionLACTATE DEHYDROGENASE (LDH)2018-01-12 07:40:00 Test Item Value Reference Range Interpretation Comments LACTATE DEHYDROGENASE (BEAKER) (test 3247 U/L 125-220 H code = 635) [id number] 07:38:00 Test Item Value Reference Range Interpretation Comments MAGNESIUM (BEAKER) (test code = 2.3 mg/dL 1.6-2.6 627) [id number] 07:38:00 Test Item Value Reference Range Interpretation Comments GLUCOSE RANDOM (BEAKER) (test code 217 mg/dL 70-105 H = 652) LACTIC ACID, ARTERIAL, WHOLE [id number] 07:27:00 Test Item Value Reference Range Interpretation Comments LACTATE BLOOD ARTERIAL (2) 1.4 mmol/L 0.5-2.2 (BEAKER) (test code = 2874) Effective 01/04/2016: Units/Reference Range ChangeNew: 0.5-2.2 mmol/L Previous: 5-20 mg/dLSpecimen slightly ictericGLUCOSE-STAT [id number] 06:55:00 Test Item Value Reference Range Interpretation Comments GLUCOSE RANDOM (BEAKER) (test code 212 mg/dL 70-110 H = 652) BLOOD GAS, [id number] 06:55:00 Test Item Value Reference Range Interpretation [...] (test code = 1819) 40.0 % POTASSIUM-STAT [id number] 06:52:00 Test Item Value Reference Range Interpretation Comments POTASSIUM (BEAKER) (test code = 4.8 meq/L 3.6-5.5 379) BLOOD GAS, [id number] 06:43:00 Test Item Value Reference Range Interpretation [...] 100.0 % RAD, CHEST, 1 VIEW, NON [id number] 06:14:00Reason for exam:- >impella/ECMO/intubationShould this be performed [...] changed. There is no pneumothorax. Signed: [facility] Verified Date/Time: 01/12/2018 06:14:29 Reading Location: [address] Transitional Reading Room LACTATE DEHYDROGENASE (LDH)2018-01-12 05:03:00 Test Item Value Reference Range Interpretation Comments LACTATE DEHYDROGENASE (BEAKER) (test 3014 U/L 125-220 H code = 635) HEPATIC FUNCTION [id number] 05:03:00 Test Item Value Reference Range Interpretation [...] 1544 U/L 6-55 H 347) Specimen slightly [id number] 05:01:00 Test Item Value Reference Range Interpretation Comments PHOSPHORUS (BEAKER) (test code = 5.0 mg/dL 2.3-4.7 H 604) [id number] 05:01:00 Test Item Value Reference Range Interpretation Comments MAGNESIUM (BEAKER) (test code = 2.1 mg/dL 1.6-2.6 627) [id number] 05:01:00 Test Item Value Reference Range Interpretation Comments CALCIUM (BEAKER) (test code = 697) 8.5 mg/dL 8.4-10.2 BASIC METABOLIC [id number] 05:01:00 Test Item Value Reference Range Interpretation [...] TS. Specimen slightly ictericLACTIC ACID, ARTERIAL, WHOLE [id number] 04:42:00 Test Item Value Reference Range Interpretation Comments LACTATE BLOOD ARTERIAL (2) 1.5 mmol/L 0.5-2.2 (BEAKER) (test code = 2874) Effective 01/04/2016: Units/Reference Range ChangeNew: 0.5-2.2 mmol/L Previous: 5-20 mg/dLSpecimen slightly [id number] 04:38:00 Test Item Value Reference Range Interpretation Comments FIBRINOGEN LEVEL (BEAKER) (test 252 mg/dl 225-434 code = 658) [id number] 04:38:00 Test Item Value Reference Range Interpretation Comments PARTIAL THROMBOPLASTIN TIME 54.6 seconds 22.5-36.0 H (BEAKER) (test code = 760) CBC W/PLT COUNT & AUTO [id number] 04:37:00 Test Item Value Reference Range Interpretation [...] PERCENT (BEAKER) (test code = 2801) PROTHROMBIN TIME/[id number] 04:37:00 Test Item Value Reference Range Interpretation Comments PROTIME (BEAKER) (test code = 19.9 seconds 11.7-14.7 H 759) INR (BEAKER) (test code = 370) 1.7 <=5.9 RECOMMENDED COUMADIN/WARFARIN INR THERAPY RANGESSTANDARD DOSE: 2.0 - 3.0 Includes: PROPHYLAXIS forvenous thrombosis, systemic embolization; TREATMENT for venous thrombosis and/or pulmonary embolus.HIGH RISK: Target INR is 2.5-3.5 for patients with mechanical heart valves.CALCIUM, [id number] 04:31:00 Test Item Value Reference Range Interpretation Comments CALCIUM IONIZED (BEAKER) (test 1.12 mmol/L 1.12-1.27 code = 698) PH, BLOOD (BEAKER) (test code = 7.42 1810) BLOOD GAS, [id number] 04:30:00 Test Item Value Reference Range Interpretation [...] (test code = 1819) 40.0 % PLATELET [id number] 04:23:00 Test Item Value Reference Range Interpretation Comments PLATELET COUNT (BEAKER) (test 110 K/CU MM 150-450 L code = 756) OXYGEN SATURATION, [id number] 04:14:00 Test Item Value Reference Range Interpretation Comments O2 SATURATION (MEASURED) (BEAKER) 79.7 % (test code = 1455) [id number] 02:54:00 Test Item Value Reference Range Interpretation Comments PARTIAL THROMBOPLASTIN TIME 134.3 seconds 22.5-36.0 H (BEAKER) (test code = 760) [id number] 02:25:00 Test Item Value Reference Range Interpretation Comments PARTIAL THROMBOPLASTIN TIME 94.0 seconds 22.5-36.0 H (BEAKER) (test code = 760) BLOOD GAS, [id number] 01:56:00 Test Item Value Reference Range Interpretation [...] (test code = 1819) 40.0 % GLUCOSE-STAT [id number] 01:53:00 Test Item Value Reference Range Interpretation Comments GLUCOSE RANDOM (BEAKER) (test code 201 mg/dL 70-110 H = 652) POTASSIUM-STAT [id number] 01:52:00 Test Item Value Reference Range Interpretation Comments POTASSIUM (BEAKER) (test code = 4.9 meq/L 3.6-5.5 379) LACTIC ACID, ARTERIAL, WHOLE [id number] 01:18:00 Test Item Value Reference Range Interpretation Comments LACTATE BLOOD ARTERIAL (2) 2.0 mmol/L 0.5-2.2 (BEAKER) (test code = 2874) Effective 01/04/2016: Units/Reference Range ChangeNew: 0.5-2.2 mmol/L Previous: 5-20 mg/dLSpecimen slightly [id number] 01:18:00 Test Item Value Reference Range Interpretation Comments POTASSIUM (BEAKER) (test code = 5.1 meq/L 3.5-5.1 379) [id number] 01:18:00 Test Item Value Reference Range Interpretation Comments GLUCOSE RANDOM (BEAKER) (test code 194 mg/dL 70-105 H = 652) PROTHROMBIN [id number] 01:15:00 Test Item Value Reference Range Interpretation Comments PROTIME (BEAKER) (test code = 21.2 seconds 11.7-14.7 H 759) INR (BEAKER) (test code = 370) 1.8 <=5.9 RECOMMENDED COUMADIN/WARFARIN INR THERAPY RANGESSTANDARD DOSE: 2.0 - 3.0 Includes: PROPHYLAXIS forvenous thrombosis, systemic embolization; TREATMENT for venous thrombosis and/or pulmonary embolus.HIGH RISK: Target INR is 2.5-3.5 for patients with mechanical heart valves.[id number] 01:15:00 Test Item Value Reference Range Interpretation Comments FIBRINOGEN LEVEL (BEAKER) (test 233 mg/dl 225-434 code = 658) PLATELET [id number] 01:01:00 Test Item Value Reference Range Interpretation Comments PLATELET COUNT (BEAKER) (test code 84 K/CU MM 150-450 L = 756) BLOOD GAS, [id number] 01:00:00 Test Item Value Reference Range Interpretation [...] (test code = 1819) 40.0 % CALCIUM, [id number] 01:00:00 Test Item Value Reference Range Interpretation [...] 0.0-5.0 (BEAKER) (test code = 1414) GLUCOSE-STAT [id number] 23:53:00 Test Item Value Reference Range Interpretation Comments GLUCOSE RANDOM (BEAKER) (test code 182 mg/dL 70-110 H = 652) BLOOD GAS, [id number] 23:52:00 Test Item Value Reference Range Interpretation [...] FIO2 (BEAKER) (test code = 1819) 40 [id number] 23:05:00 Test Item Value Reference Range Interpretation Comments PARTIAL THROMBOPLASTIN TIME > seconds 22.5-36.0 HH (BEAKER) (test code = 760) BLOOD GAS, [id number] 23:01:00 Test Item Value Reference Range Interpretation [...] (BEAKER) (test code = 1819) 100.0 % [id number] 22:46:00 Test Item Value Reference Range Interpretation Comments FIBRINOGEN LEVEL (BEAKER) (test 223 mg/dl 225-434 L code = 658) PROTHROMBIN [id number] 22:45:00 Test Item Value Reference Range Interpretation Comments PROTIME (BEAKER) (test code = 23.0 seconds 11.7-14.7 H 759) INR (BEAKER) (test code = 370) 2.0 <=5.9 RECOMMENDED COUMADIN/WARFARIN INR THERAPY RANGESSTANDARD DOSE: 2.0 - 3.0 Includes: PROPHYLAXIS forvenous thrombosis, systemic embolization; TREATMENT for venous thrombosis and/or pulmonary embolus.HIGH RISK: Target INR is 2.5-3.5 for patients with mechanical heart valves.BLOOD GAS, [id number] 22:22:00 Test Item Value Reference Range Interpretation [...] (test code = 1819) 40.0 % CALCIUM, [id number] 22:21:00 Test Item Value Reference Range Interpretation Comments CALCIUM IONIZED (BEAKER) (test 1.05 mmol/L 1.12-1.27 L code = 698) PH, BLOOD (BEAKER) (test code = 7.67 1810) PLATELET [id number] 22:21:00 Test Item Value Reference Range Interpretation Comments PLATELET COUNT (BEAKER) (test code 71 K/CU MM 150-450 L = 756) GLUCOSE-STAT [id number] 22:20:00 Test Item Value Reference Range Interpretation Comments GLUCOSE RANDOM (BEAKER) (test code 189 mg/dL 70-110 H = 652) POTASSIUM-STAT [id number] 22:19:00 Test Item Value Reference Range Interpretation [...] 2133 U/L 125-220 H code = 635) [id number] 20:55:00 Test Item Value Reference Range Interpretation Comments POTASSIUM (BEAKER) (test code = 5.4 meq/L 3.5-5.1 H 379) [id number] 20:55:00 Test Item Value Reference Range Interpretation Comments MAGNESIUM (BEAKER) (test code = 1.6 mg/dL 1.6-2.6 627) [id number] 20:55:00 Test Item Value Reference Range Interpretation Comments PHOSPHORUS (BEAKER) (test code = 2.9 mg/dL 2.3-4.7 604) GLUCOSE-STAT [id number] 20:31:00 Test Item Value Reference Range Interpretation Comments GLUCOSE RANDOM (BEAKER) (test code 166 mg/dL 70-110 H = 652) POTASSIUM-STAT [id number] 20:30:00 Test Item Value Reference Range Interpretation Comments POTASSIUM (BEAKER) (test code = 5.2 meq/L 3.6-5.5 379) BLOOD GAS, [id number] 20:30:00 Test Item Value Reference Range Interpretation [...] code = 1819) 40.0 % OXYGEN SATURATION, [id number] 18:46:00 Test Item Value Reference Range Interpretation Comments O2 SATURATION (MEASURED) (BEAKER) 81.5 % (test code = 1455) RAD, CHEST, 1 VIEW, NON [id number] 18:27:00Reason for exam:->impella/ECMO placementShould this be performed [...] MDReport Verified Date/Time: 01/11/2018 18:27:33 Reading Location: [facility] Consult Reading Room [id number] 18:11:00 Test Item Value Reference Range Interpretation Comments PARTIAL THROMBOPLASTIN TIME > seconds 22.5-36.0 HH (BEAKER) (test code = 760) LACTATE DEHYDROGENASE (LDH)2018-01-11 18:09:00 Test Item Value Reference Range Interpretation Comments LACTATE DEHYDROGENASE 1590 U/L 125-220 H Specim en slightly (BEAKER) (test code = hemoly zed 635) BASIC METABOLIC [id number] 18:08:00 Test Item Value Reference Range Interpretation [...] S NOT APPLICABLE FOR DIALYSIS PATIEN TS. [id number] 17:54:00 Test Item Value Reference Range Interpretation Comments MAGNESIUM (BEAKER) 1.8 mg/dL 1.6-2.6 Specimen slightly (test code = 627) hemolyzed [id number] 17:54:00 Test Item Value Reference Range Interpretation Comments PHOSPHORUS (BEAKER) 4.6 mg/dL 2.3-4.7 Specimen slightly (test code = 604) hemolyzed LACTIC ACID, ARTERIAL, WHOLE [id number] 17:53:00 Test Item Value Reference Range Interpretation Comments LACTATE BLOOD 10.8 mmol/L 0.5-2.2 H Specimen sligh tly ARTERIAL (2) (BEAKER) hemoly zed (test code = 2874) Effective 01/04/2016: Units/Reference Range ChangeNew: 0.5-2.2 mmol/L Previous: 5-20 mg/[id number] 17:46:00 Test Item Value Reference Range Interpretation [...] exclusion of thrombosis is within 95-100% range. [id number] 17:46:00 Test Item Value Reference Range Interpretation Comments FIBRINOGEN LEVEL (BEAKER) (test 201 mg/dl 225-434 L code = 658) PROTHROMBIN [id number] 17:45:00 Test Item Value Reference Range Interpretation Comments PROTIME (BEAKER) (test code = 24.4 seconds 11.7-14.7 H 759) INR (BEAKER) (test code = 370) 2.2 <=5.9 RECOMMENDED COUMADIN/WARFARIN INR THERAPY RANGESSTANDARD DOSE: 2.0 - 3.0 Includes: PROPHYLAXIS forvenous thrombosis, systemic embolization; TREATMENT for venous thrombosis and/or pulmonary embolus.HIGH RISK: Target INR is 2.5-3.5 for patients with mechanical heart valves.BLOOD GAS, [id number] 17:44:00 Test Item Value Reference Range Interpretation [...] code = 1819) 40.0 % SODIUM NA-STAT [id number] 17:44:00 Test Item Value Reference Range Interpretation Comments SODIUM (BEAKER) (test code = 381) 134 meq/L 135-148 L POTASSIUM-STAT [id number] 17:44:00 Test Item Value Reference Range Interpretation Comments POTASSIUM (BEAKER) (test code = 6.2 meq/L 3.6-5.5 HH 379) GLUCOSE-STAT [id number] 17:44:00 Test Item Value Reference Range Interpretation Comments GLUCOSE RANDOM (BEAKER) (test code 147 mg/dL 70-110 H = 652) HGB/HCT (H&H) - STAT [id number] 17:44:00 Test Item Value Reference Range Interpretation Comments HEMOGLOBIN (BEAKER) (test code = 9.9 g/dL 13.0-16.8 L 410) HEMATOCRIT (BEAKER) (test code = 29.0 % 40.0-50.0 L 411) CALCIUM, [id number] 17:41:00 Test Item Value Reference Range Interpretation Comments CALCIUM IONIZED (BEAKER) (test 1.03 mmol/L 1.12-1.27 L code = 698) PH, BLOOD (BEAKER) (test code = 7.52 1810) OXYGEN SATURATION, [id number] 17:39:00 Test Item Value Reference Range Interpretation Comments O2 SATURATION (MEASURED) (BEAKER) 84.5 % (test code = 1455) CBC W/PLT COUNT & AUTO [id number] 17:37:00 Test Item Value Reference Range Interpretation [...] 0-1 PERCENT (BEAKER) (test code = 2801) [id number] 16:35:00 Test Item Value Reference Range Interpretation Comments ACTIVATED CLOTTING TIME 230 sec TEST ED AT [place] [address] (BEAKER) (test code = [facility] [place] [address]) [address] [id number] 16:35:00 Test Item Value Reference Range Interpretation Comments ACTIVATED CLOTTING TIME 191 sec TEST ED AT [place] [address] (BEAKER) (test code = [facility] [place] [address]) [address] BLOOD GAS, [id number] 16:20:00 Test Item Value Reference Range Interpretation [...] (test code = 1819) 100 BLOOD GAS, [id number] 16:19:00 Test Item Value Reference Range Interpretation [...] drawn from ECMO circuitLACTIC ACID, ARTERIAL, WHOLE [id number] 14:07:00 Test Item Value Reference Range Interpretation Comments LACTATE BLOOD 13.1 mmol/L 0.5-2.2 H Specimen sligh tly ARTERIAL (2) (BEAKER) hemoly zed (test code = 2874) Effective 01/04/2016: Units/Reference Range ChangeNew: 0.5-2.2 mmol/L Previous: 5-20 mg/dLPROTHROMBIN [id number] 14:01:00 Test Item Value Reference Range Interpretation Comments PROTIME (BEAKER) (test code = 20.9 seconds 11.7-14.7 H 759) INR (BEAKER) (test code = 370) 1.8 <=5.9 RECOMMENDED COUMADIN/WARFARIN INR THERAPY RANGESSTANDARD DOSE: 2.0 - 3.0 Includes: PROPHYLAXIS forvenous thrombosis, systemic embolization; TREATMENT for venous thrombosis and/or pulmonary embolus.HIGH RISK: Target INR is 2.5-3.5 for patients with mechanical heart valves.[id number] 14:01:00 Test Item Value Reference Range Interpretation Comments FIBRINOGEN LEVEL (BEAKER) (test 227 mg/dl 225-434 code = 658) PLATELET [id number] 13:54:00 Test Item Value Reference Range Interpretation Comments PLATELET COUNT (BEAKER) (test 115 K/CU MM 150-450 L code = 756) BLOOD GAS, [id number] 13:47:00 Test Item Value Reference Range Interpretation [...] (test code = 1819) 40.0 % GLUCOSE-STAT [id number] 13:47:00 Test Item Value Reference Range Interpretation Comments GLUCOSE RANDOM (BEAKER) (test code 134 mg/dL 70-110 H = 652) [id number] 12:33:00 Test Item Value Reference Range Interpretation Comments POTASSIUM (BEAKER) (test code = 5.6 meq/L 3.5-5.1 H 379) PRN - repeat glucose levels every 1 hour or as specified by insulin titration orders until glucose level is less than 450 mg/[id number] 12:33:00 Test Item Value Reference Range Interpretation Comments GLUCOSE RANDOM (BEAKER) (test code = 43 mg/dL 70-105 L 652) PRN - repeat glucose levels every 1 hour or as specified by insulin titration orders until glucose level is less than 450 mg/dLBASIC METABOLIC [id number] 11:05:00 Test Item Value Reference Range Interpretation [...] until glucose level is less than 450 mg/[id number] 11:05:00 Test Item Value Reference Range Interpretation Comments GLUCOSE RANDOM (BEAKER) (test code = 34 mg/dL 70-105 LL 652) [id number] 10:44:00 Test Item Value Reference Range Interpretation Comments POTASSIUM (BEAKER) (test code = 5.9 meq/L 3.5-5.1 H 379) HEPATIC FUNCTION [id number] 10:44:00 Test Item Value Reference Range Interpretation [...] Previous: 5-20 mg/dLCBC W/PLT COUNT & AUTO [id number] 10:23:00 Test Item Value Reference Range Interpretation [...] (BEAKER) (test code = 2801) BLOOD GAS, [id number] 10:20:00 Test Item Value Reference Range Interpretation [...] (BEAKER) (test code = 1819) 40.0 % [id number] 09:01:00 Test Item Value Reference Range Interpretation Comments POTASSIUM (BEAKER) (test code = 5.9 meq/L 3.5-5.1 H 379) PRN - repeat glucose levels every 1 hour or as specified by insulin titration orders until glucose level is less than 450 mg/[id number] 09:01:00 Test Item Value Reference Range Interpretation Comments MAGNESIUM (BEAKER) (test code = 1.7 mg/dL 1.6-2.6 627) PRN - repeat glucose levels every 1 hour or as specified by insulin titration orders until glucose level is less than 450 mg/[id number] 09:01:00 Test Item Value Reference Range Interpretation Comments PHOSPHORUS (BEAKER) (test code = 4.7 mg/dL 2.3-4.7 604) PRN - repeat glucose levels every 1 hour or as specified by insulin titration orders until glucose level is less than 450 mg/[id number] 09:01:00 Test Item Value Reference Range Interpretation Comments GLUCOSE RANDOM (BEAKER) (test code = 50 mg/dL 70-105 L 652) PRN - repeat glucose levels every 1 hour or as specified by insulin titration orders until glucose level is less than 450 mg/dLCALCIUM, [id number] 08:47:00 Test Item Value Reference Range Interpretation Comments CALCIUM IONIZED (BEAKER) (test 1.24 mmol/L 1.12-1.27 code = 698) PH, BLOOD (BEAKER) (test code = 7.31 1810) [id number] 08:45:00 Test Item Value Reference Range Interpretation Comments PARTIAL THROMBOPLASTIN TIME 53.7 seconds 22.5-36.0 H (BEAKER) (test code = 760) BLOOD GAS, [id number] 08:41:00 Test Item Value Reference Range Interpretation [...] (test code = 1819) 40.0 % PH, [id number] 08:41:00 Test Item Value Reference Range Interpretation Comments PH ARTERIAL (BEAKER) (test code = 383) 7.31 7.35-7.45 L RAD, CHEST, 1 VIEW, NON [id number] 07:31:00Reason for exam:->s/p cardiac surgeryShould this be [...] Xie MDReport VerifiedDate/Time: 01/11/2018 07:31:38 Reading Location: [address] Ortho Consult Reading Room BLOOD GAS, [...] code = 1819) 40.0 % BASIC METABOLIC [id number] 06:12:00 Test Item Value Reference Range Interpretation [...] NOT APPLICABLE FOR DIALYSIS PATIEN TS. POCT-GLUCOSE [id number] 05:58:00 Test Item Value Reference Range Interpretation Comments POC-GLUCOSE METER 121 mg/dL 70-110 H TESTED AT [facility] [address] (BEAKER) (test code = [place] [address]) [address] POCT-GLUCOSE [id number] 05:58:00 Test Item Value Reference Range Interpretation Comments POC-GLUCOSE METER 66 mg/dL 70-110 L Will Repea t Test/TESTED (BEAKER) (test code = AT [facility] [address] [place] [address]) [facility] [address] [id number] 05:51:00 Test Item Value Reference Range Interpretation Comments PHOSPHORUS (BEAKER) (test code = 3.5 mg/dL 2.3-4.7 604) [id number] 05:51:00 Test Item Value Reference Range Interpretation Comments MAGNESIUM (BEAKER) (test code = 1.9 mg/dL 1.6-2.6 627) BLOOD GAS, [id number] 05:47:00 Test Item Value Reference Range Interpretation [...] (test code = 1819) 40.0 % POCT-GLUCOSE [id number] 05:27:00 Test Item Value Reference Range Interpretation Comments POC-GLUCOSE METER 112 mg/dL 70-110 H TESTED AT [place] [address] ([facility]) (test code = [place] [facility] 1538) [address] POCT-GLUCOSE [id number] 05:27:00 Test Item Value Reference Range Interpretation Comments POC-GLUCOSE METER 106 mg/dL 70-110 TESTED AT [place] [address] ([facility]) (test code = [place] [facility] 1538) [address] POCT-GLUCOSE [id number] 05:26:00 Test Item Value Reference Range Interpretation Comments POC-GLUCOSE METER 66 mg/dL 70-110 L TESTED AT [place] [address] ([facility]) (test [facility] = [facility] [address]) LACTIC ACID, ARTERIAL, WHOLE [id number] 04:59:00 Test Item Value Reference Range Interpretation Comments LACTATE BLOOD 12.2 mmol/L 0.5-2.2 H Specimen sligh tly ARTERIAL (2) ([facility]) hemoly zed (test code = 2874) Effective 01/04/2016: Units/Reference Range ChangeNew: 0.5-2.2 mmol/L Previous: 5-20 mg/dLCALCIUM, [id number] 04:57:00 Test Item Value Reference Range Interpretation Comments CALCIUM IONIZED (BEAKER) (test 1.33 mmol/L 1.12-1.27 H code = 698) PH, BLOOD (BEAKER) (test code = 7.30 6220) BLOOD GAS, [id number] 04:57:00 Test Item Value Reference Range Interpretation [...] code = 1819) 45.0 % OXYGEN SATURATION, [id number] 04:56:00 Test Item Value Reference Range Interpretation Comments O2 SATURATION (MEASURED) (BEAKER) 83.2 % (test code = 1455) CBC W/PLT COUNT & AUTO [id number] 04:56:00 Test Item Value Reference Range Interpretation [...] PERCENT (BEAKER) (test code = 2801) CALCIUM, [id number] 03:38:00 Test Item Value Reference Range Interpretation Comments CALCIUM IONIZED (BEAKER) (test 1.32 mmol/L 1.12-1.27 H code = 698) PH, BLOOD (BEAKER) (test code = 7.29 1810) BLOOD GAS, [id number] 03:36:00 Test Item Value Reference Range Interpretation [...] 1819) 50.0 % HGB/HCT (H&H) - STAT [id number] 03:36:00 Test Item Value Reference Range Interpretation Comments HEMOGLOBIN (BEAKER) (test code = 12.5 g/dL 13.0-16.8 L 410) HEMATOCRIT (BEAKER) (test code = 37.0 % 40.0-50.0 L 411) OXYGEN SATURATION, [id number] 03:35:00 Test Item Value Reference Range Interpretation Comments O2 SATURATION (MEASURED) (BEAKER) 80.3 % (test code = 1455) GLUCOSE-STAT [id number] 03:34:00 Test Item Value Reference Range Interpretation Comments GLUCOSE RANDOM (BEAKER) (test code = 91 mg/dL 70-110 652) SODIUM NA-STAT [id number] 03:34:00 Test Item Value Reference Range Interpretation Comments SODIUM (BEAKER) (test code = 381) 137 meq/L 135-148 POTASSIUM-STAT [id number] 03:34:00 Test Item Value Reference Range Interpretation Comments POTASSIUM (BEAKER) (test code = 4.6 meq/L 3.6-5.5 379) BLOOD GAS, [id number] 03:01:00 Test Item Value Reference Range Interpretation [...] 1819) 50.0 % HGB/HCT (H&H) - STAT [id number] 03:01:00 Test Item Value Reference Range Interpretation Comments HEMOGLOBIN (BEAKER) (test code = 12.0 g/dL 13.0-16.8 L 410) HEMATOCRIT (BEAKER) (test code = 35.0 % 40.0-50.0 L 411) POTASSIUM-STAT [id number] 03:00:00 Test Item Value Reference Range Interpretation Comments POTASSIUM (BEAKER) (test code = 5.0 meq/L 3.6-5.5 379) GLUCOSE-STAT [id number] 03:00:00 Test Item Value Reference Range Interpretation Comments GLUCOSE RANDOM (BEAKER) (test code 102 mg/dL 70-110 = 652) SODIUM NA-STAT [id number] 03:00:00 Test Item Value Reference Range Interpretation Comments SODIUM (BEAKER) (test code = 381) 140 meq/L 135-148 LACTIC ACID, ARTERIAL, WHOLE [id number] 01:53:00 Test Item Value Reference Range Interpretation Comments LACTATE BLOOD 9.4 mmol/L 0.5-2.2 H Specimen sligh tly ARTERIAL (2) (BEAKER) hemoly zed (test code = 2874) Effective 01/04/2016: Units/Reference Range ChangeNew: 0.5-2.2 mmol/L Previous: 5-20 mg/dLGLUCOSE-STAT [id number] 01:27:00 Test Item Value Reference Range Interpretation Comments GLUCOSE RANDOM (BEAKER) (test code = 99 mg/dL 70-110 652) BLOOD GAS, [id number] 01:27:00 Test Item Value Reference Range Interpretation [...] 1819) 100.0 % HGB/HCT (H&H) - STAT [id number] 01:27:00 Test Item Value Reference Range Interpretation Comments HEMOGLOBIN (BEAKER) (test code = 12.7 g/dL 13.0-16.8 L 410) HEMATOCRIT (BEAKER) (test code = 37.0 % 40.0-50.0 L 411) SODIUM NA-STAT [id number] 01:26:00 Test Item Value Reference Range Interpretation Comments SODIUM (BEAKER) (test code = 381) 141 meq/L 135-148 POTASSIUM-STAT [id number] 01:26:00 Test Item Value Reference Range Interpretation Comments POTASSIUM (BEAKER) (test code = 3.6 meq/L 3.6-5.5 379) [id number] 00:38:00 Test Item Value Reference Range Interpretation Comments PARTIAL THROMBOPLASTIN TIME 47.4 seconds 22.5-36.0 H (BEAKER) (test code = 760) [id number] 00:35:00 Test Item Value Reference Range Interpretation Comments POTASSIUM (BEAKER) 3.5 meq/L 3.5-5.1 Specimen slightly (test code = 379) hemolyzed CALCIUM, [id number] 00:25:00 Test Item Value Reference Range Interpretation [...] = 1414) RAD, CHEST, 1 VIEW, NON [id number] 22:36:00Reason for exam:->s/p BronchoscopyFINAL REPORT CLINICAL INDICATION: Post bronchoscopy Comparison: Same date ni7375 hours There is improved aeration of the right upper lobe. No pneumothorax is present. Hazy opacity in the right upper lobe and in the retrocardiac lower lungs may reflect atelectasis but pneumonitis should be excluded clinically. The cardiomediastinal contours are stable. Support lines are stable. Signed: Kellen Parra MDReport Verified Date/Time: 01/10/2018 22:36:29 Reading Location: [address] Reading Room C METABOLIC [id number] 22:01:00 Test Item Value Reference Range Interpretation [...] S NOT APPLICABLE FOR DIALYSIS PATIEN TS. [id number] 22:00:00 Test Item Value Reference Range Interpretation Comments MAGNESIUM (BEAKER) 2.4 mg/dL 1.6-2.6 Specimen slightly (test code = 627) hemolyzed [id number] 22:00:00 Test Item Value Reference Range Interpretation Comments PHOSPHORUS (BEAKER) 3.2 mg/dL 2.3-4.7 Specimen slightly (test code = 604) hemolyzed LACTIC ACID, ARTERIAL, WHOLE [id number] 21:57:00 Test Item Value Reference Range Interpretation Comments LACTATE BLOOD 10.2 mmol/L 0.5-2.2 H Specimen sligh tly ARTERIAL (2) (BEAKER) hemoly zed (test code = 2874) Effective 01/04/2016: Units/Reference Range ChangeNew: 0.5-2.2 mmol/L Previous: 5-20 mg/dLCBC W/PLT COUNT & AUTO [id number] 21:51:00 Test Item Value Reference Range Interpretation [...] 0-1 PERCENT (BEAKER) (test code = 2801) [id number] 21:49:00 Test Item Value Reference Range Interpretation Comments PARTIAL THROMBOPLASTIN TIME 41.2 seconds 22.5-36.0 H (BEAKER) (test code = 760) PROTHROMBIN [id number] 21:48:00 Test Item Value Reference Range Interpretation Comments PROTIME (BEAKER) (test code = 19.8 seconds 11.7-14.7 H 759) INR (BEAKER) (test code = 370) 1.7 <=5.9 RECOMMENDED COUMADIN/WARFARIN INR THERAPY RANGESSTANDARD DOSE: 2.0 - 3.0 Includes: PROPHYLAXIS forvenous thrombosis, systemic embolization; TREATMENT for venous thrombosis and/or pulmonary embolus.HIGH RISK: Target INR is 2.5-3.5 for patients with mechanical heart valves.[id number] 21:48:00 Test Item Value Reference Range Interpretation Comments FIBRINOGEN LEVEL (BEAKER) (test 221 mg/dl 225-434 L code = 658) CALCIUM, [id number] 21:33:00 Test Item Value Reference Range Interpretation Comments CALCIUM IONIZED (BEAKER) (test 1.54 mmol/L 1.12-1.27 H code = 698) PH, BLOOD (BEAKER) (test code = 7.33 1810) OXYGEN SATURATION, [id number] 21:33:00 Test Item Value Reference Range Interpretation Comments O2 SATURATION (MEASURED) (BEAKER) 67.1 % (test code = 1455) GLUCOSE-STAT [id number] 21:32:00 Test Item Value Reference Range Interpretation Comments GLUCOSE RANDOM (BEAKER) (test code = 98 mg/dL 70-110 652) SODIUM NA-STAT [id number] 21:32:00 Test Item Value Reference Range Interpretation Comments SODIUM (BEAKER) (test code = 381) 139 meq/L 135-148 POTASSIUM-STAT [id number] 21:32:00 Test Item Value Reference Range Interpretation Comments POTASSIUM (BEAKER) (test code = 3.6 meq/L 3.6-5.5 379) BLOOD GAS, [id number] 21:32:00 Test Item Value Reference Range Interpretation [...] 1819) 60.0 % HGB/HCT (H&H) - STAT [id number] 21:32:00 Test Item Value Reference Range Interpretation Comments HEMOGLOBIN (BEAKER) (test code = 8.2 g/dL 13.0-16.8 L 410) HEMATOCRIT (BEAKER) (test code = 24.0 % 40.0-50.0 L 411) RAD, CHEST, 1 VIEW, NON [id number] 21:32:00Reason for exam:->s/p cardiac surgeryShould this be [...] the level of the clavicles. Right IJ Winston-Moni catheter terminatesin the distal right pulmonary artery. The soft tissues and osseous structures are intact. IMPRESSION: Postoperative changes with right upper lobe collapse, likely secondary to mucous plugging. Supporting lines and tubes as described above. Note position of the Winston-Moni catheter. Signed: Moiz Musaeport Verified Date/Time: 01/10/2018 21:32:31 Reading Location: [address] Consult Reading Room THROMBOELASTOGRAPH (TEG)2018-01-10 21:01:00 Test [...] 55.0-65.0 L (test code = 1413) CALCIUM, [id number] 20:42:00 Test Item Value Reference Range Interpretation Comments CALCIUM IONIZED (BEAKER) (test 1.41 mmol/L 1.12-1.27 H code = 698) PH, BLOOD (BEAKER) (test code = 7.41 1810) SODIUM NA-STAT [id number] 20:41:00 Test Item Value Reference Range Interpretation Comments SODIUM (BEAKER) (test code = 381) 138 meq/L 135-148 POTASSIUM-STAT [id number] 20:41:00 Test Item Value Reference Range Interpretation Comments POTASSIUM (BEAKER) (test code = 3.7 meq/L 3.6-5.5 379) BLOOD GAS, [id number] 20:41:00 Test Item Value Reference Range Interpretation [...] (test code = 1819) 100.0 % GLUCOSE-STAT [id number] 20:41:00 Test Item Value Reference Range Interpretation Comments GLUCOSE RANDOM (BEAKER) (test code 120 mg/dL 70-110 H = 652) HGB/HCT (H&H) - STAT [id number] 20:41:00 Test Item Value Reference Range Interpretation Comments HEMOGLOBIN (BEAKER) (test code = 7.8 g/dL 13.0-16.8 L 410) HEMATOCRIT (BEAKER) (test code = 23.0 % 40.0-50.0 L 411) [id number] 20:23:00 Test Item Value Reference Range Interpretation Comments FIBRINOGEN LEVEL (BEAKER) (test 239 mg/dl 225-434 code = 658) [id number] 20:23:00 Test Item Value Reference Range Interpretation Comments PARTIAL THROMBOPLASTIN TIME 38.6 seconds 22.5-36.0 H (BEAKER) (test code = 760) PROTHROMBIN [id number] 20:22:00 Test Item Value Reference Range Interpretation Comments PROTIME (BEAKER) (test code = 21.6 seconds 11.7-14.7 H 759) INR (BEAKER) (test code = 370) 1.9 <=5.9 RECOMMENDED COUMADIN/WARFARIN INR THERAPY RANGESSTANDARD DOSE: 2.0 - 3.0 Includes: PROPHYLAXIS forvenous thrombosis, systemic embolization; TREATMENT for venous thrombosis and/or pulmonary embolus.HIGH RISK: Target INR is 2.5-3.5 for patients with mechanical heart valves.[id number] 20:16:00 Test Item Value Reference Range Interpretation Comments ACTIVATED CLOTTING TIME 114 sec TEST ED AT [place] [address] ([facility]) (test code = [place] [address]) [id number] 20:16:00 Test Item Value Reference Range Interpretation Comments ACTIVATED CLOTTING TIME 499 sec TEST ED AT [place] [address] ([facility]) (test code = [place] [address]) [id number] 20:16:00 Test Item Value Reference Range Interpretation Comments ACTIVATED CLOTTING TIME 483 sec TEST ED AT [place] [address] ([facility]) (test code = [place] [address]) [address] [id number] 20:16:00 Test Item Value Reference Range Interpretation Comments ACTIVATED CLOTTING TIME 538 sec TEST ED AT [place] [address] ([facility]) (test code = [place] 441) [id number] 20:16:00 Test Item Value Reference Range Interpretation Comments ACTIVATED CLOTTING TIME 615 sec TEST ED AT [place] [address] ([facility]) (test code = [place] 441) [id number] 20:16:00 Test Item Value Reference Range Interpretation Comments ACTIVATED CLOTTING TIME 692 sec TEST ED AT [place] [address] ([facility]) (test code = [place] 441) [id number] 20:16:00 Test Item Value Reference Range Interpretation Comments ACTIVATED CLOTTING TIME 428 sec TEST ED AT [place] [address] ([facility]) (test code = [place] 441) [id number] 20:16:00 Test Item Value Reference Range Interpretation Comments ACTIVATED CLOTTING TIME 373 sec TEST ED AT [place] [address] ([facility]) (test code = [place] 441) [id number] 20:16:00 Test Item Value Reference Range Interpretation Comments ACTIVATED CLOTTING TIME 455 sec TEST ED AT [place] [address] ([facility]) (test code = F[place]ER [place] [address]) [id number] 20:16:00 Test Item Value Reference Range Interpretation Comments ACTIVATED CLOTTING TIME 494 sec TEST ED AT [place] [address] ([facility]) (test code = [place]ER [place] [address]) [address] [id number] 20:16:00 Test Item Value Reference Range Interpretation Comments ACTIVATED CLOTTING TIME 527 sec TEST ED AT [place] [address] ([facility]) (test code = [place] [address]) [address] [id number] 20:16:00 Test Item Value Reference Range Interpretation Comments ACTIVATED CLOTTING TIME 610 sec TEST ED AT [place] [address] ([facility]) (test code = [place]OST[place] Paul [place] [address]) [address] [id number] 20:16:00 Test Item Value Reference Range Interpretation Comments ACTIVATED CLOTTING TIME 576 sec TEST ED AT [place] [address] ([facility]) (test code = FOSTER [place] 441) [address] [id number] 20:16:00 Test Item Value Reference Range Interpretation Comments ACTIVATED CLOTTING TIME 384 sec TEST ED AT [place] [address] ([facility]) (test code = FOSTER Paul [place] [address]) [address] PLATELET [id number] 20:08:00 Test Item Value Reference Range Interpretation [...] 0.0-5.0 (BEAKER) (test code = 1414) CALCIUM, [id number] 19:59:00 Test Item Value Reference Range Interpretation Comments CALCIUM IONIZED (BEAKER) (test 1.39 mmol/L 1.12-1.27 H code = 698) PH, BLOOD (BEAKER) (test code = 7.37 1810) BLOOD GAS, [id number] 19:58:00 Test Item Value Reference Range Interpretation [...] (test code = 1819) 100.0 % GLUCOSE-STAT [id number] 19:58:00 Test Item Value Reference Range Interpretation Comments GLUCOSE RANDOM (BEAKER) (test code 143 mg/dL 70-110 H = 652) HGB/HCT (H&H) - STAT [id number] 19:58:00 Test Item Value Reference Range Interpretation Comments HEMOGLOBIN (BEAKER) (test code = 8.7 g/dL 13.0-16.8 L 410) HEMATOCRIT (BEAKER) (test code = 26.0 % 40.0-50.0 L 411) SODIUM NA-STAT [id number] 19:57:00 Test Item Value Reference Range Interpretation Comments SODIUM (BEAKER) (test code = 381) 140 meq/L 135-148 POTASSIUM-STAT [id number] 19:57:00 Test Item Value Reference Range Interpretation Comments POTASSIUM (BEAKER) (test code = 3.9 meq/L 3.6-5.5 379) [id number] 19:29:00 Test Item Value Reference Range Interpretation Comments PARTIAL THROMBOPLASTIN TIME > seconds 22.5-36.0 HH (BEAKER) (test code = 760) [id number] 19:16:00 Test Item Value Reference Range Interpretation Comments FIBRINOGEN LEVEL (BEAKER) (test 271 mg/dl 225-434 code = 658) PROTHROMBIN [id number] 19:15:00 Test Item Value Reference Range Interpretation Comments PROTIME (BEAKER) (test code = 21.3 seconds 11.7-14.7 H 759) INR (BEAKER) (test code = 370) 1.8 <=5.9 RECOMMENDED COUMADIN/WARFARIN INR THERAPY RANGESSTANDARD DOSE: 2.0 - 3.0 Includes: PROPHYLAXIS forvenous thrombosis, systemic embolization; TREATMENT for venous thrombosis and/or pulmonary embolus.HIGH RISK: Target INR is 2.5-3.5 for patients with mechanical heart valves.PLATELET [id number] 19:06:00 Test Item Value Reference Range Interpretation Comments PLATELET COUNT (BEAKER) (test code 54 K/CU MM 150-450 L = 756) BLOOD GAS, [id number] 18:49:00 Test Item Value Reference Range Interpretation [...] 1819) 100.0 % HGB/HCT (H&H) - STAT [id number] 18:44:00 Test Item Value Reference Range Interpretation Comments HEMOGLOBIN (BEAKER) (test code = 10.1 g/dL 13.0-16.8 L 410) HEMATOCRIT (BEAKER) (test code = 30.0 % 40.0-50.0 L 411) SODIUM NA-STAT [id number] 18:43:00 Test Item Value Reference Range Interpretation Comments SODIUM (BEAKER) (test code = 381) 137 meq/L 135-148 POTASSIUM-STAT [id number] 18:43:00 Test Item Value Reference Range Interpretation Comments POTASSIUM (BEAKER) (test code = 5.0 meq/L 3.6-5.5 379) GLUCOSE-STAT [id number] 18:43:00 Test Item Value Reference Range Interpretation Comments GLUCOSE RANDOM (BEAKER) (test code 187 mg/dL 70-110 H = 652) SODIUM NA-STAT [id number] 18:22:00 Test Item Value Reference Range Interpretation Comments SODIUM (BEAKER) (test code = 381) 140 meq/L 135-148 POTASSIUM-STAT [id number] 18:22:00 Test Item Value Reference Range Interpretation Comments POTASSIUM (BEAKER) (test code = 4.7 meq/L 3.6-5.5 379) BLOOD GAS, [id number] 18:22:00 Test Item Value Reference Range Interpretation [...] (test code = 1819) 60.0 % GLUCOSE-STAT [id number] 18:22:00 Test Item Value Reference Range Interpretation Comments GLUCOSE RANDOM (BEAKER) (test code 209 mg/dL 70-110 H = 652) HGB/HCT (H&H) - STAT [id number] 18:22:00 Test Item Value Reference Range Interpretation Comments HEMOGLOBIN (BEAKER) (test code = 10.2 g/dL 13.0-16.8 L 410) HEMATOCRIT (BEAKER) (test code = 30.0 % 40.0-50.0 L 411) BLOOD GAS, [id number] 17:57:00 Test Item Value Reference Range Interpretation [...] (test code = 1819) 65.0 % GLUCOSE-STAT [id number] 17:57:00 Test Item Value Reference Range Interpretation Comments GLUCOSE RANDOM (BEAKER) (test code 198 mg/dL 70-110 H = 652) HGB/HCT (H&H) - STAT [id number] 17:57:00 Test Item Value Reference Range Interpretation Comments HEMOGLOBIN (BEAKER) (test code = 10.3 g/dL 13.0-16.8 L 410) HEMATOCRIT (BEAKER) (test code = 30.0 % 40.0-50.0 L 411) SODIUM NA-STAT [id number] 17:56:00 Test Item Value Reference Range Interpretation Comments SODIUM (BEAKER) (test code = 381) 138 meq/L 135-148 POTASSIUM-STAT [id number] 17:56:00 Test Item Value Reference Range Interpretation Comments POTASSIUM (BEAKER) (test code = 4.7 meq/L 3.6-5.5 379) BLOOD GAS, [id number] 17:28:00 Test Item Value Reference Range Interpretation [...] (test code = 1819) 65.0 % GLUCOSE-STAT [id number] 17:28:00 Test Item Value Reference Range Interpretation Comments GLUCOSE RANDOM (BEAKER) (test code 223 mg/dL 70-110 H = 652) HGB/HCT (H&H) - STAT [id number] 17:28:00 Test Item Value Reference Range Interpretation Comments HEMOGLOBIN (BEAKER) (test code = 10.1 g/dL 13.0-16.8 L 410) HEMATOCRIT (BEAKER) (test code = 30.0 % 40.0-50.0 L 411) SODIUM NA-STAT [id number] 17:27:00 Test Item Value Reference Range Interpretation Comments SODIUM (BEAKER) (test code = 381) 140 meq/L 135-148 POTASSIUM-STAT [id number] 17:27:00 Test Item Value Reference Range Interpretation [...] code = 1414) HGB/HCT (H&H) - STAT [id number] 17:01:00 Test Item Value Reference Range Interpretation Comments HEMOGLOBIN (BEAKER) (test code = 10.1 g/dL 13.0-16.8 L 410) HEMATOCRIT (BEAKER) (test code = 30.0 % 40.0-50.0 L 411) BLOOD GAS, [id number] 17:00:00 Test Item Value Reference Range Interpretation [...] (test code = 1819) 65.0 % GLUCOSE-STAT [id number] 17:00:00 Test Item Value Reference Range Interpretation Comments GLUCOSE RANDOM (BEAKER) (test code 243 mg/dL 70-110 H = 652) SODIUM NA-STAT [id number] 16:59:00 Test Item Value Reference Range Interpretation Comments SODIUM (BEAKER) (test code = 381) 139 meq/L 135-148 POTASSIUM-STAT [id number] 16:59:00 Test Item Value Reference Range Interpretation Comments POTASSIUM (BEAKER) (test code = 4.6 meq/L 3.6-5.5 379) [id number] 16:47:00 Test Item Value Reference Range Interpretation Comments PARTIAL THROMBOPLASTIN TIME > seconds 22.5-36.0 HH (BEAKER) (test code = 760) BLOOD GAS, [id number] 16:18:00 Test Item Value Reference Range Interpretation [...] (test code = 1819) 65.0 % GLUCOSE-STAT [id number] 16:18:00 Test Item Value Reference Range Interpretation Comments GLUCOSE RANDOM (BEAKER) (test code 279 mg/dL 70-110 H = 652) HGB/HCT (H&H) - STAT [id number] 16:18:00 Test Item Value Reference Range Interpretation Comments HEMOGLOBIN (BEAKER) (test code = 7.0 g/dL 13.0-16.8 L 410) HEMATOCRIT (BEAKER) (test code = 21.0 % 40.0-50.0 L 411) SODIUM NA-STAT [id number] 16:17:00 Test Item Value Reference Range Interpretation Comments SODIUM (BEAKER) (test code = 381) 137 meq/L 135-148 POTASSIUM-STAT [id number] 16:17:00 Test Item Value Reference Range Interpretation Comments POTASSIUM (BEAKER) (test code = 4.6 meq/L 3.6-5.5 379) [id number] 16:15:00 Test Item Value Reference Range Interpretation Comments FIBRINOGEN LEVEL (BEAKER) (test 255 mg/dl 225-434 code = 658) PROTHROMBIN [id number] 16:14:00 Test Item Value Reference Range Interpretation Comments PROTIME (BEAKER) (test code = 20.2 seconds 11.7-14.7 H 759) INR (BEAKER) (test code = 370) 1.7 <=5.9 RECOMMENDED COUMADIN/WARFARIN INR THERAPY RANGESSTANDARD DOSE: 2.0 - 3.0 Includes: PROPHYLAXIS forvenous thrombosis, systemic embolization; TREATMENT for venous thrombosis and/or pulmonary embolus.HIGH RISK: Target INR is 2.5-3.5 for patients with mechanical heart valves.PLATELET [id number] 16:02:00 Test Item Value Reference Range Interpretation Comments PLATELET COUNT (BEAKER) (test code 57 K/CU MM 150-450 L = 756) CALCIUM, [id number] 15:51:00 Test Item Value Reference Range Interpretation Comments CALCIUM IONIZED (BEAKER) (test 0.82 mmol/L 1.12-1.27 L code = 698) PH, BLOOD (BEAKER) (test code = 7.45 1810) BLOOD GAS, [id number] 15:51:00 Test Item Value Reference Range Interpretation [...] (test code = 1819) 100.0 % GLUCOSE-STAT [id number] 15:51:00 Test Item Value Reference Range Interpretation Comments GLUCOSE RANDOM (BEAKER) (test code 190 mg/dL 70-110 H = 652) HGB/HCT (H&H) - STAT [id number] 15:51:00 Test Item Value Reference Range Interpretation Comments HEMOGLOBIN (BEAKER) (test code = 7.6 g/dL 13.0-16.8 L 410) HEMATOCRIT (BEAKER) (test code = 22.0 % 40.0-50.0 L 411) POTASSIUM-STAT [id number] 15:51:00 Test Item Value Reference Range Interpretation Comments POTASSIUM (BEAKER) (test code = 5.6 meq/L 3.6-5.5 H 379) SODIUM NA-STAT [id number] 15:50:00 Test Item Value Reference Range Interpretation Comments SODIUM (BEAKER) (test code = 381) 139 meq/L 135-148 BLOOD GAS, [id number] 15:43:00 Test Item Value Reference Range Interpretation [...] (test code = 1819) 75.0 % GLUCOSE-STAT [id number] 15:43:00 Test Item Value Reference Range Interpretation Comments GLUCOSE RANDOM (BEAKER) (test code 189 mg/dL 70-110 H = 652) HGB/HCT (H&H) - STAT [id number] 15:43:00 Test Item Value Reference Range Interpretation Comments HEMOGLOBIN (BEAKER) (test code = 8.0 g/dL 13.0-16.8 L 410) HEMATOCRIT (BEAKER) (test code = 24.0 % 40.0-50.0 L 411) POTASSIUM-STAT [id number] 15:43:00 Test Item Value Reference Range Interpretation Comments POTASSIUM (BEAKER) (test code = 5.7 meq/L 3.6-5.5 H 379) SODIUM NA-STAT [id number] 15:42:00 Test Item Value Reference Range Interpretation Comments SODIUM (BEAKER) (test code = 381) 136 meq/L 135-148 SODIUM NA-STAT [id number] 15:06:00 Test Item Value Reference Range Interpretation Comments SODIUM (BEAKER) (test code = 381) 139 meq/L 135-148 BLOOD GAS, [id number] 15:06:00 Test Item Value Reference Range Interpretation [...] (test code = 1819) 60.0 % POTASSIUM-STAT [id number] 15:06:00 Test Item Value Reference Range Interpretation Comments POTASSIUM (BEAKER) (test code = 5.8 meq/L 3.6-5.5 H 379) GLUCOSE-STAT [id number] 15:06:00 Test Item Value Reference Range Interpretation Comments GLUCOSE RANDOM (BEAKER) (test code 192 mg/dL 70-110 H = 652) HGB/HCT (H&H) - STAT [id number] 15:06:00 Test Item Value Reference Range Interpretation Comments HEMOGLOBIN (BEAKER) (test code = 8.2 g/dL 13.0-16.8 L 410) HEMATOCRIT (BEAKER) (test code = 24.0 % 40.0-50.0 L 411) POTASSIUM-STAT [id number] 14:41:00 Test Item Value Reference Range Interpretation Comments POTASSIUM (BEAKER) (test code = 5.2 meq/L 3.6-5.5 379) BLOOD GAS, [id number] 14:41:00 Test Item Value Reference Range Interpretation [...] code = 1819) 60.0 % SODIUM NA-STAT [id number] 14:41:00 Test Item Value Reference Range Interpretation Comments SODIUM (BEAKER) (test code = 381) 134 meq/L 135-148 L GLUCOSE-STAT [id number] 14:41:00 Test Item Value Reference Range Interpretation Comments GLUCOSE RANDOM (BEAKER) (test code 195 mg/dL 70-110 H = 652) HGB/HCT (H&H) - STAT [id number] 14:41:00 Test Item Value Reference Range Interpretation Comments HEMOGLOBIN (BEAKER) (test code = 8.2 g/dL 13.0-16.8 L 410) HEMATOCRIT (BEAKER) (test code = 24.0 % 40.0-50.0 L 411) BLOOD GAS, [id number] 14:10:00 Test Item Value Reference Range Interpretation [...] (test code = 1819) 60.0 % GLUCOSE-STAT [id number] 14:10:00 Test Item Value Reference Range Interpretation Comments GLUCOSE RANDOM (BEAKER) (test code 177 mg/dL 70-110 H = 652) HGB/HCT (H&H) - STAT [id number] 14:10:00 Test Item Value Reference Range Interpretation Comments HEMOGLOBIN (BEAKER) (test code = 8.5 g/dL 13.0-16.8 L 410) HEMATOCRIT (BEAKER) (test code = 25.0 % 40.0-50.0 L 411) SODIUM NA-STAT [id number] 14:09:00 Test Item Value Reference Range Interpretation Comments SODIUM (BEAKER) (test code = 381) 136 meq/L 135-148 POTASSIUM-STAT [id number] 14:09:00 Test Item Value Reference Range Interpretation Comments POTASSIUM (BEAKER) (test code = 5.0 meq/L 3.6-5.5 379) SODIUM NA-STAT [id number] 13:39:00 Test Item Value Reference Range Interpretation Comments SODIUM (BEAKER) (test code = 381) 136 meq/L 135-148 POTASSIUM-STAT [id number] 13:39:00 Test Item Value Reference Range Interpretation Comments POTASSIUM (BEAKER) (test code = 5.0 meq/L 3.6-5.5 379) BLOOD GAS, [id number] 13:39:00 Test Item Value Reference Range Interpretation [...] (test code = 1819) 60.0 % GLUCOSE-STAT [id number] 13:39:00 Test Item Value Reference Range Interpretation Comments GLUCOSE RANDOM (BEAKER) (test code 179 mg/dL 70-110 H = 652) HGB/HCT (H&H) - STAT [id number] 13:39:00 Test Item Value Reference Range Interpretation Comments HEMOGLOBIN (BEAKER) (test code = 8.1 g/dL 13.0-16.8 L 410) HEMATOCRIT (BEAKER) (test code = 24.0 % 40.0-50.0 L 411) CALCIUM, [id number] 12:31:00 Test Item Value Reference Range Interpretation Comments CALCIUM IONIZED (BEAKER) (test 1.09 mmol/L 1.12-1.27 L code = 698) PH, BLOOD (BEAKER) (test code = 7.45 1810) GLUCOSE-STAT [id number] 12:30:00 Test Item Value Reference Range Interpretation Comments GLUCOSE RANDOM (BEAKER) (test code = 93 mg/dL 70-110 652) SODIUM NA-STAT [id number] 12:30:00 Test Item Value Reference Range Interpretation Comments SODIUM (BEAKER) (test code = 381) 140 meq/L 135-148 POTASSIUM-STAT [id number] 12:30:00 Test Item Value Reference Range Interpretation Comments POTASSIUM (BEAKER) (test code = 3.9 meq/L 3.6-5.5 379) BLOOD GAS, [id number] 12:30:00 Test Item Value Reference Range Interpretation [...] 1819) 100.0 % HGB/HCT (H&H) - STAT [id number] 12:30:00 Test Item Value Reference Range Interpretation Comments HEMOGLOBIN (BEAKER) (test code = 9.3 g/dL 13.0-16.8 L 410) HEMATOCRIT (BEAKER) (test code = 27.0 % 40.0-50.0 L 411) HEMOGLOBIN [id number] 10:02:00 Test Item Value Reference Range Interpretation Comments HEMOGLOBIN A1C (BEAKER) (test code = 4.4 % 4.3-6.1 368) POCT-GLUCOSE [id number] 09:52:00 Test Item Value Reference Range Interpretation Comments POC-GLUCOSE METER 115 mg/dL 70-110 H TESTED AT [facility] 6720 (BEAKER) (test code = MARIA [place] 1538) [address] PROTHROMBIN [id number] 02:41:00 Test Item Value Reference Range Interpretation Comments PROTIME (BEAKER) (test code = 14.9 seconds 11.7-14.7 H 759) INR (BEAKER) (test code = 370) 1.2 <=5.9 RECOMMENDED COUMADIN/WARFARIN INR THERAPY RANGESSTANDARD DOSE: 2.0 - 3.0 Includes: PROPHYLAXIS forvenous thrombosis, systemic embolization; TREATMENT for venous thrombosis and/or pulmonary embolus.HIGH RISK: Target INR is 2.5-3.5 for patients with mechanical heart valves.BASIC METABOLIC [id number] 00:29:00 Test Item Value Reference Range Interpretation [...] S NOT APPLICABLE FOR DIALYSIS PATIEN TS. [id number] 00:22:00 Test Item Value Reference Range Interpretation Comments MAGNESIUM (BEAKER) 2.5 mg/dL 1.6-2.6 Specimen slightly (test code = 627) hemolyzed [id number] 00:14:00 Test Item Value Reference Range Interpretation Comments PARTIAL THROMBOPLASTIN TIME 38.6 seconds 22.5-36.0 H (BEAKER) (test code = 760) CBC W/PLT COUNT & AUTO [id number] 00:07:00 Test Item Value Reference Range Interpretation [...] 0-1 PERCENT (BEAKER) (test code = 2801) [id number] 17:03:00 Test Item Value Reference Range Interpretation Comments THYROID STIMULATING HORMONE 1.30 uIU/mL 0.35-4.94 (BEAKER) (test code = 772) HEPATIC FUNCTION [id number] 16:43:00 Test Item Value Reference Range Interpretation [...] 69 U/L 6-55 H 347) BASIC METABOLIC [id number] 15:47:00 Test Item Value Reference Range Interpretation [...] S NOT APPLICABLE FOR DIALYSIS PATIEN TED. [id number] 14:57:00 Test Item Value Reference Range Interpretation Comments PARTIAL THROMBOPLASTIN TIME 82.9 seconds 22.5-36.0 H (BEAKER) (test code = 760) CBC W/PLT COUNT & AUTO [id number] 14:48:00 Test Item Value Reference Range Interpretation [...] EOSINOPHILS ABSOLUTE COUNT 0.06 K/ L 0.04-0.54 ([facility]) (test code = 416) BASOPHILS ABSOLUTE COUNT (AKER) 0.02 K/ L 0.01-0.08 (test code = 417) IMMATURE GRANULOCYTES-RELATIVE 1 % 0-1 PERCENT ([facility]) (test code = 2801) POCT-GLUCOSE [id number] 11:13:00 Test Item Value Reference Range Interpretation Comments POC-GLUCOSE METER 207 mg/dL 70-110 H TESTED AT [facility] 67 ([facility]) (test code = FOSTER Paul [facility] 1538) [address] POCT-GLUCOSE [id number] 08:08:00 Test Item Value Reference Range Interpretation Comments POC-GLUCOSE METER 124 mg/dL 70-110 H TESTED AT [place] [address] ([facility]) (test code = [facility] Humberto [facility] 1538) [address] [id number] 06:51:00 Test Item Value Reference Range Interpretation Comments PARTIAL THROMBOPLASTIN TIME 54.6 seconds 22.5-36.0 H ([facility]) (test code = 760) HEPATITIS B SURFACE [id number] 00:28:00 Test Item Value Reference Range Interpretation Comments HEPATITIS B SURFACE ANTIGEN (2) Nonreactive Nonreactive ([facility]) (test code = 2585) [id number] 00:06:00 Test Item Value Reference Range Interpretation Comments [facility] (test code = 3.2 mg/dL 2.3-4.7 604) [id number] 00:03:00 Test Item Value Reference Range Interpretation Comments PARTIAL THROMBOPLASTIN TIME 36.0 seconds 22.5-36.0 ([facility]) (test code = 760) CBC W/PLT COUNT & AUTO [id number] 23:45:00 Test Item Value Reference Range Interpretation [...] PERCENT (BEAKER) (test code = 2801) POCT-GLUCOSE [id number] 17:39:00 Test Item Value Reference Range Interpretation Comments POC-GLUCOSE METER 116 mg/dL 70-110 H TESTED AT [facility] 6720 (BEAKER) (test code = FOSTER [place] 1538) [address] [id number] 15:35:00 Test Item Value Reference Range Interpretation Comments THYROID STIMULATING HORMONE 1.39 uIU/mL 0.35-4.94 (JARROD) (test code = 772) [id number] 15:06:00 Test Item Value Reference Range Interpretation Comments PARTIAL THROMBOPLASTIN TIME 31.0 seconds 22.5-36.0 (JARROD) (test code = 760) Prior to initiating heparinPROTHROMBIN [id number] 15:05:00 Test Item Value Reference Range Interpretation Comments PROTIME (JARROD) (test code = 14.4 seconds 11.7-14.7 759) INR (JARROD) (test code = 370) 1.1 <=5.9 RECOMMENDED COUMADIN/WARFARIN INR THERAPY RANGESSTANDARD DOSE: 2.0 - 3.0 Includes: PROPHYLAXIS forvenous thrombosis, systemic embolization; TREATMENT for venous thrombosis and/or pulmonary embolus.HIGH RISK: Target INR is 2.5-3.5 for patients with mechanical heart valves.PLATELET [id number] 14:52:00 Test Item Value Reference Range Interpretation Comments PLATELET COUNT (JARROD) (test 109 K/CU MM 150-450 L code = 756) POCT-GLUCOSE [id number] 12:00:00 Test Item Value Reference Range Interpretation Comments POC-GLUCOSE METER 186 mg/dL 70-110 H TESTED AT [facility] 6720 (JARROD) (test code = FOSTER [place] 1538) [address] RAD, CHEST, 1 VIEW, NON [id number] 11:43:00Reason for exam:->SOB, known severe MRShould this be performed at the bedside?->YesFINAL REPORT Chest one view AP 01/08/2018 11:42 AM CLINICAL INDICATION: SOB, kno wn severe MR COMPARISON: 12/02/2017 IMPRESSION: Cardiomediastinal contours are stable. There is mild pulmonary edema. There are trace bilateral pleural effusions. Signed: Yevgeniy Anderson Verified Date/Time: 01/08/2018 11:43:52 Reading Location: [facility] Radiology Reading Room Electronic ally signed by: YEVGENIY ANDERSON M.D. on 01/08/2018 11:43 AMRAPID CK-MB 2017-12-02 10:04:00 Test Item Value Reference Range Interpretation Comments RAPID CKMB (JARROD) (test code = 1.5 ng/mL 0.0-4.3 1482) RAPID TROPONIN [id number] 10:04:00 Test Item Value Reference Range Interpretation Comments RAPID TROPONIN I (BEAKER) (test code < ng/mL <0.05 = 1483) RAD, CHEST, 2 [id number] 10:00:00Reason for exam:->Chest PainFINAL REPORT Chest two views Discussion: Heart size upper limits of normal. Bilateral interstitial edema with small bilateral effusions. No pneumothorax. Bones and soft tissues unremarkable. Signed: Rhea Colindreseport Verified Date/Time: 12/02/2017 10:00:39 Reading Location:[facility] Radiology Reading Room B-TYPE NATRIURETIC FACTOR (BNP)2017-12-02 09:56:00 Test Item Value Reference Range Interpretation Comments B-TYPE NATRIURETIC PEPTIDE 1990 pg/mL 0-100 H (BEAKER) (test code = 700) BASIC METABOLIC [id number] 09:52:00 Test Item Value Reference Range Interpretation [...] S NOT APPLICABLE FOR DIALYSIS PATIEN TS. [id number] 09:51:00 Test Item Value Reference Range Interpretation Comments MAGNESIUM (BEAKER) (test code = 1.7 mg/dL 1.5-3.0 627) CBC W/PLT COUNT & AUTO [id number] 09:50:00 Test Item Value Reference Range Interpretation [...] (BEAKER) (test code = 417) CD4/CD8 Ratio [id number] 08:04:00 Test Item Value Reference Range Interpretation Comments Absolute CD 4 [place] (test code 188 /uL 359-1519 L = 183949) % CD 4 Pos. Lymph. (test code = 37.6 % 30.8-58.5 N 858880) Abs. CD 8 Suppressor (test code 183 /uL 109-897 N = 657178) % CD 8 Pos. Lymph. (test code = 36.6 % 12.0-35.5 H 787905) CD4/CD8 Ratio (test code = 1.03 0.92-3.72 N 593793) WBC (test code = 063317) 5.0 x10E3/uL 3.4-10.8 N RBC (test code = 231008) 3.00 x10E6/uL 4.14-5.80 L Hemoglobin (test code = 059669) 9.6 g/dL 13.0-17.7 L Hematocrit (test code = 596468) 27.6 % 37.5-51.0 L MCV (test code = 469766) 92 fL 79-97 N MCH (test code = 529202) 32.0 pg 26.6-33.0 N MCHC (test code = 580177) 34.8 g/dL 31.5-35.7 N RDW (test code = 912536) 15.5 % 12.3-15.4 H Platelets (test code = 668721) 113 x10E3/uL 150-379 L Neutrophils (test code = 84 % Not Estab. N 933440) Lymphs (test code = 932065) 9 % Not Estab. N Monocytes (test code = 840644) 6 % Not Estab. N Eos (test code = 030913) 1 % Not Estab. N Basos (test code = 853282) 0 % Not Estab. N Neutrophils (Absolute) (test 4.2 x10E3/uL 1.4-7.0 N code = 493840) Lymphs (Absolute) (test code = 0.5 x10E3/uL 0.7-3.1 L 024188) Monocytes(Absolute) (test code 0.3 x10E3/uL 0.1-0.9 N = 249542) Eos (Absolute) (test code = 0.0 x10E3/uL 0.0-0.4 N 306396) Baso (Absolute) (test code = 0.0 x10E3/uL 0.0-0.2 N 716992) Immature Granulocytes (test 0 % Not Estab. N code = 324785) Immature Grans (Abs) (test code 0.0 x10E3/uL 0.0-0.1 N = 448576) Culture, Blood [id number] 08:42:00Specimen: BloodCollected: 11/19/2017 00:21 Status: Final Last Updated: 11/24/2017 08:42 Culture Result (Final) (Final) No Growth After 5 DaysCulture, Blood [id number] 08:42:00 Specimen: BloodCollected: 11/18/2017 20:30 Status: Final Last Updated: 11/24/2017 08:42 Culture Result (Final) (Final) No Growth After 5 DaysPOC Glucose, [id number] 11:51:00 Test Item Value Reference Range Interpretation Comments POC Glucose (test 148 mg/dL 70-115 H Notify RN or MDIf you code = POCGLUC) consider you r patient critically ill, the [facility] Accu-Chek InformII metershould not be used for Glucose determinations. Draw a venous Glucose and send to the Main Lab for Analysis. CK [id number] 07:42:00 Test Item Value Reference Range Interpretation Comments CK (test code = CK) na U/L 39-308 N CKMB (test code = CKMB) 4.0 ng/mL 0.0-4.9 N CKMB% (test code = CKMBP) 0.0 % 0.0-3.4 N [id number] 07:39:00 Test Item Value Reference Range Interpretation Comments NT ProBnp (test code = PBNP) >76339 pg/mL 0-124 H Troponin [id number] 07:18:00 Test Item Value Reference Range Interpretation Comments Troponin T (test code = MADHAV) 0.103 ng/mL 0.000-0.090 H Lactate [id number] 07:18:00 Test Item Value Reference Range Interpretation Comments LDH (test code = LDH) 271 U/L 135-225 H POC Glucose, [id number] 06:50:00 Test Item Value Reference Range Interpretation Comments POC Glucose (test 154 mg/dL 70-115 H Notify RN or MDIf you code = POCGLUC) consider you r patient critically ill, the [facility] Accu-Chek InformII metershould not be used for Glucose determinations. Draw a venous Glucose and send to the Main Lab for Analysis. CK [id number] 01:08:00 Test Item Value Reference Range Interpretation Comments CK (test code = CK) na U/L 39-308 N CKMB (test code = CKMB) 3.6 ng/mL 0.0-4.9 N CKMB% (test code = CKMBP) 0.0 % 0.0-3.4 N Troponin [id number] 01:08:00 Test Item Value Reference Range Interpretation Comments Troponin T (test code = MADHAV) 0.106 ng/mL 0.000-0.090 H XR CHEST 1 [id number] 21:02:01CLINICAL INFORMATION: Vascular congestion.Dictation Location: R 16Comparison: 11/18/2017 showed perihilar and lower lobe opacities. Technique: Portable AP 195 hoursFINDINGS: Monitoring electrodes overlie the chest wall. Cardiomegaly withincreasing central vascular interstitial prominence with bibasilaropacities and effusions. No interval bone changes.IMPRESSION: Changes could indicate worsening cardiac decompensation orfluid overload.POC Glucose, [id number] 20:15:00 Test Item Value Reference Range Interpretation Comments POC Glucose (test 139 mg/dL 70-115 H If you con warehouse driver your code = POCGLUC) patient crit ically ill, the [facility] Accu- Chek InformII meters hould not be used for Glu cose determinations. Draw a venous Glucose and send to the Main Lab for Analysis. POC Glucose, [id number] 16:52:00 Test Item Value Reference Range Interpretation Comments POC Glucose (test 123 mg/dL 70-115 H If you con warehouse driver your code = POCGLUC) patient crit ically ill, the [facility] Accu- Chek InformII meters hould not be used for Glu cose determinations. Draw a venous Glucose and send to the Main Lab for Analysis. POC Glucose, [id number] 12:04:00 Test Item Value Reference Range Interpretation Comments POC Glucose (test 140 mg/dL 70-115 H If you con warehouse driver your code = POCGLUC) patient crit ically ill, the [facility] Accu- Chek InformII meters hould not be used for Glu cose determinations. Draw a venous Glucose and send to the Main Lab for Analysis. POC Glucose, [id number] 08:01:00 Test Item Value Reference Range Interpretation Comments POC Glucose (test 126 mg/dL 70-115 H If you con warehouse driver your code = POCGLUC) patient crit ically ill, the [facility] Accu- Chek InformII meters hould not be used for Glu cose determinations. Draw a venous Glucose and send to the Main Lab for Analysis. CK [id number] 06:03:00 Test Item Value Reference Range Interpretation Comments CK (test code = CK) na U/L 39-308 N CKMB (test code = CKMB) 2.8 ng/mL 0.0-4.9 N CKMB% (test code = CKMBP) 0.0 % 0.0-3.4 N Basic Metabolic [id number] 05:51:00 Test Item Value Reference Range Interpretation [...] the National Kidney Foundation,http ://nkd ep.nih.gov Magnesium, [id number] 05:51:00 Test Item Value Reference Range Interpretation Comments Magnesium (test code = MG) 1.9 mg/dL 1.7-2.5 N [id number] 05:51:00 Test Item Value Reference Range Interpretation Comments Phosphorus (test code = PO4) 3.8 mg/dL 2.70-4.50 N Ido-Hvt8318-09-20 05:51:00 Test Item Value Reference Range Interpretation Comments NT ProBnp (test code = PBNP) >96923 pg/mL 0-124 H Troponin [id number] 05:51:00 Test Item Value Reference Range Interpretation Comments Troponin T (test code = MADHAV) 0.126 ng/mL 0.000-0.090 H CBC with [id number] 05:34:00 Test Item Value Reference Range Interpretation [...] code = ALYMPH) 0.4 K/cumm 0.5-4.6 L Brewster Abs (test code = AMONO) 0.6 K/cumm 0.0-1.2 N Eos Abs (test code = AEOS) 0.13 K/cumm 0.00-0.74 N Baso Abs (test code = ABASO) 0.0 K/cumm 0.00-0.21 N CK [id number] 18:39:00 Test Item Value Reference Range Interpretation Comments CK (test code = CK) HIDE U/L 39-308 N CKMB (test code = CKMB) 3.2 ng/mL 0.0-4.9 N CKMB% (test code = CKMBP) HIDE % 0.0-3.4 N Troponin [id number] 18:39:00 Test Item Value Reference Range Interpretation Comments Troponin T (test code = MADHAV) 0.126 ng/mL 0.000-0.090 H Hep B Surface [id number] 18:39:00 Test Item Value Reference Range Interpretation Comments Hep Bs Ag (test code = HBSAG) Nonreactive Non-Reactive A POC Glucose, [id number] 16:47:00 Test Item Value Reference Range Interpretation Comments POC Glucose (test 143 mg/dL 70-115 H If you con warehouse driver your code = POCGLUC) patient crit ically ill, the [facility] Accu- Chek InformII meters hould not be used for Glu cose determinations. Draw a venous Glucose and send to the Main Lab for Analysis. XR CHEST 1 [id number] 08:18:18EXAM: Portable AP chest x-rayLOCATION: R16 INDICATION: CoughCOMPARISON: 11/07/2017FINDINGS:The cardiacsilhouette is stable enlargement. There are increasinginterstitial opacities, most evident in the per ihilar regions and lowerlobes. There is blunting of the costophrenic angles bilaterally. Thereis no discernible pneumothorax.IMPRESSION:Increasing perihilar and bilateral lower lobe opacities compared to theprior exam dated 11/07/2017. Findings may represent pulmonary edema orpneumonia in the appropriate clinical setting.Comprehensive Metabolic [id number] 08:05:00 Test Item Value Reference Range Interpretation [...] the National Kidney Foundation,http ://nkd ep.nih.gov CK [id number] 08:05:00 Test Item Value Reference Range Interpretation Comments CK (test code = CK) 149 U/L 39-308 N Troponin [id number] 08:02:00 Test Item Value Reference Range Interpretation Comments Troponin T (test code = MADHAV) 0.114 ng/mL 0.000-0.090 H [id number]-[id number] 08:02:00 Test Item Value Reference Range Interpretation Comments NT ProBnp (test code = PBNP) >62063 pg/mL 0-124 H CBC with [id number] 07:53:00 Test Item Value Reference Range Interpretation [...] code = ALYMPH) 0.9 K/cumm 0.5-4.6 N Brewster Abs (test code = AMONO) 0.4 K/cumm 0.0-1.2 N Eos Abs (test code = AEOS) 0.11 K/cumm 0.00-0.74 N Baso Abs (test code = ABASO) 0.0 K/cumm 0.00-0.21 N XR CHEST 1 [id number] 21:38:09EXAM: CHEST ONE VIEWINDICATION: CoughCOMPARISON: October 06, 2017TECHNIQUE: AP view of the chest.FINDINGS: The cardiomediastinal silhouette is unchanged. Mild congestive changesbilaterally. No pneumothorax or pleural effusion is identified. Theosseous structures are unremarkable.IMPRESSION: Diffuse congestive changes bilaterally.LOCATION: R16US DUPLX EXT VEINS COMPRS, [id number] 20:09:34AFTER HOURS SERVICE ON: 10/06/2017 8:09 PMRIGHT Lower Extremity Venous Duplex Doppler ExaminationLocation Code R33Fibqvme: SwellingTechnique: Real-time castillo scale, Doppler spectral analysis [...] Lower Extremity Venous Duplex Doppler ExaminationLocation Code Q31Ydgdd ry: SwellingTechnique: Real-time castillo scale, Doppler spectral [...] of DVT in the imaged vessels.Comprehensive Metabolic [id number] 17:40:00 Test Item Value Reference Range Interpretation [...] National Kidney Foundation,http ://nkd ep.nih.gov CBC with [id number] 17:15:00 Test Item Value Reference Range Interpretation [...] code = ALYMPH) 1.3 K/cumm 0.5-4.6 N Brewster Abs (test code = AMONO) 0.6 K/cumm 0.0-1.2 N Eos Abs (test code = AEOS) 0.12 K/cumm 0.00-0.74 N Baso Abs (test code = ABASO) 0.0 K/cumm 0.00-0.21 N XR CHEST 1 [id number] 16:56:42CHEST 1 VIEW: [id number]: coughCOMPARISON:Sep 24, 2017FINDINGS:The heart is enlarged. There is engorgement of the central pulmonaryvasculature. There are patchy bibasilar areas of infiltrate oratelectasis with bilateral effusions. No pneumothorax is present. IMPRESSION: 1. Patchy areas of atelectasis or infiltrate in the lung bases withsmall bilateral effusions and vascular congestion most likely secondaryto CHF.Culture, Blood [id number] 14:58:00Specimen: BloodCollected: 09/24/2017 13:05 Status: Final Last Updated: 09/29/2017 14:58 (1) ER Bed 1 Culture Result (Final) (Final) No Growth After 5 DaysCulture, Blood [id number] 14:58:00Specimen: BloodCollected: 09/24/2017 12:50 Status: Final Last Updated: 09/29/2017 14:58 (1) ER Bed 1 Culture Result (Final) (Final) No Growth After 5 DaysPOC Glucose, [id number] 10:54:00 Test Item Value Reference Range Interpretation Comments POC Glucose (test 168 mg/dL 70-115 H If you con warehouse driver your code = POCGLUC) patient crit ically ill, the [facility] Accu- Chek InformII meters hould not be used for Glu cose determinations. Draw a venous Glucose and send to the Main Lab for Analysis. POC Glucose, [id number] 07:16:00 Test Item Value Reference Range Interpretation Comments POC Glucose (test 143 mg/dL 70-115 H If you con warehouse driver your code = POCGLUC) patient crit ically ill, the [facility] Accu- Chek InformII meters hould not be used for Glu cose determinations. Draw a venous Glucose and send to the Main Lab for Analysis. CBC with [id number] 07:15:00 Test Item Value Reference Range Interpretation [...] code = ALYMPH) 1.3 K/cumm 0.5-4.6 N Brewster Abs (test code = AMONO) 0.7 K/cumm 0.0-1.2 N Eos Abs (test code = AEOS) 0.07 K/cumm 0.00-0.74 N Baso Abs (test code = ABASO) 0.0 K/cumm 0.00-0.21 N Magnesium, [id number] 07:03:00 Test Item Value Reference Range Interpretation Comments Magnesium (test code = MG) 2.0 mg/dL 1.7-2.5 N Basic Metabolic [id number] 07:03:00 Test Item Value Reference Range Interpretation [...] National Kidney Foundation,http ://nkd ep.nih.gov POC Glucose, [id number] 21:40:00 Test Item Value Reference Range Interpretation Comments POC Glucose (test 129 mg/dL 70-115 H If you con warehouse driver your code = POCGLUC) patient crit ically ill, the [facility] Accu- Chek InformII meters hould not be used for Glu cose determinations. Draw a venous Glucose and send to the Main Lab for Analysis. Hep B Surface [id number] 18:36:00 Test Item Value Reference Range Interpretation Comments Hep Bs Ag (test code = HBSAG) Nonreactive Non-Reactive A POC Glucose, [id number] 10:51:00 Test Item Value Reference Range Interpretation Comments POC Glucose (test 216 mg/dL 70-115 H If you con warehouse driver your code = POCGLUC) patient crit ically ill, the [facility] Accu- Chek InformII meters hould not be used for Glu cose determinations. Draw a venous Glucose and send to the Main Lab for Analysis. POC Glucose, [id number] 07:57:00 Test Item Value Reference Range Interpretation Comments POC Glucose (test 164 mg/dL 70-115 H If you con warehouse driver your code = POCGLUC) patient crit ically ill, the [facility] Accu- Chek InformII meters hould not be used for Glu cose determinations. Draw a venous Glucose and send to the Main Lab for Analysis. POC Glucose, [id number] 19:47:00 Test Item Value Reference Range Interpretation Comments POC Glucose (test 140 mg/dL 70-115 H Notify RN or MDIf you code = POCGLUC) consider you r patient critically ill, the [facility] Accu-Chek InformII metershould not be used for Glucose determinations. Draw a venous Glucose and send to the Main Lab for Analysis. Troponin [id number] 19:36:00 Test Item Value Reference Range Interpretation Comments Troponin T (test code = MADHAV) 0.121 ng/mL 0.000-0.090 H CK [id number] 19:25:00 Test Item Value Reference Range Interpretation [...] by GINO on 09/25 19:24 POC Glucose, [id number] 16:42:00 Test Item Value Reference Range Interpretation Comments POC Glucose (test 123 mg/dL 70-115 H If you con warehouse driver your code = POCGLUC) patient crit ically ill, the [facility] Accu- Chek InformII meters hould not be used for Glu cose determinations. Draw a venous Glucose and send to the Main Lab for Analysis. POC Glucose, [id number] 12:09:00 Test Item Value Reference Range Interpretation Comments POC Glucose (test 141 mg/dL 70-115 H If you con warehouse driver your code = POCGLUC) patient crit ically ill, the [facility] Accu- Chek InformII meters hould not be used for Glu cose determinations. Draw a venous Glucose and send to the Main Lab for Analysis. Hep B Surface [id number] 07:59:00 Test Item Value Reference Range Interpretation Comments Hep Bs Ag (test code = HBSAG) Nonreactive Non-Reactive A CK [id number] 07:43:00 Test Item Value Reference Range Interpretation Comments CK (test code = CK) n/a U/L 39-308 N CKMB (test code = CKMB) 2.4 ng/mL 0.0-4.9 N CKMB% (test code = CKMBP) 0.0 % 0.0-3.4 N Troponin [id number] 07:38:00 Test Item Value Reference Range Interpretation Comments Troponin T (test code = MADHAV) 0.134 ng/mL 0.000-0.090 H Thyroid Stimulating Hormone (TSH)2017-09-25 07:38:00 Test Item Value Reference Range Interpretation Comments TSH (test code = TSH) 1.10 mIU/mL 0.270-4.200 N [id number] 07:38:00 Test Item Value Reference Range Interpretation Comments Phosphorus (test code = PO4) 3.4 mg/dL 2.70-4.50 N Comprehensive Metabolic [id number] 07:38:00 Test Item Value Reference Range Interpretation [...] the National Kidney Foundation,http ://nkd ep.nih.gov Magnesium, [id number] 07:38:00 Test Item Value Reference Range Interpretation Comments Magnesium (test code = MG) 2.0 mg/dL 1.7-2.5 N CK [id number] 07:31:00 Test Item Value Reference Range Interpretation Comments CK (test code = CK) 159 U/L 39-308 N Lipid [id number] 07:31:00 Test Item Value Reference Range Interpretation Comments Cholesterol (test 118 mg/dL 0-200 N code = CHOL) Triglycerides (test 170 mg/dL 9-200 N code = TRIG) HDL (test code = 49 mg/dL 40-60 N HDL) Chol/HDL (test code 2.4 Ratio 0.0-5.0 N = CHOLPHDL) LDL, Calculated 35 0-130 N (NOTE)RISK O F HEART (test code = LDLC) DISEASEPu blished by [place] Heart AssociationAnal yte Optim al Boderline Increased RiskC HOL <200 200-239 >240TRI G <150 150-199 >200HDL Male: >60 <40HDL Female: >60 <50 LDL < 100 130-15 9 >160 LDL NEAR OPTIMAL IS 100- 129 VLDL (test code = 34 mg/dL 5-40 N VLDL) LDL/HDL (test code = 1 LDLPHDL) Glycosylated [id number] 07:24:00 Test Item Value Reference Range Interpretation Comments HBA1c (test code = HBA1C) 5.0 % 4.8-5.9 N CBC with [id number] 07:20:00 Test Item Value Reference Range Interpretation [...] code = ALYMPH) 0.8 K/cumm 0.5-4.6 N Brewster Abs (test code = AMONO) 0.5 K/cumm 0.0-1.2 N Eos Abs (test code = AEOS) 0.10 K/cumm 0.00-0.74 N Baso Abs (test code = ABASO) 0.0 K/cumm 0.00-0.21 N POC Glucose, [id number] 07:03:00 Test Item Value Reference Range Interpretation Comments POC Glucose (test 147 mg/dL 70-115 H If you con warehouse driver your code = POCGLUC) patient crit ically ill, the [facility] Accu- Chek InformII meters hould not be used for Glu cose determinations. Draw a venous Glucose and send to the Main Lab for Analysis. 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 Draw a venous Glucose and send to the Main Lab for Analysis. Blood Gas+Lytes+Glu+Ca+Hgb+Hct+[id number] 18:31:00 Test Item Value Reference Range Interpretation [...] Celcius Comment (test code = alokrblvverqnscrit COMMENT) heather Pierre@ [id number] Puncture Site (test code = Radial. R PUNSITE) Drawing Tech ID (test code gianfranco fi = DRAWTECH) iPAP (test code = IPAP) 0 cmH2O Respiratory Rate (test code 0 = RESP RATE) Lactic Acid, Blood Gas 0.4 mmol/L (test code = BGLA) CT CHEST W/O [id number] 16:48:03CT CHEST W/O CONTRASTLOCATION CODE: R16 HISTORY: [...] bilateral axillary, prevascular, andparatracheal lymph nodes.Influenza B [id number] 14:36:00Specimen: NasalCollected: 09/24/2017 14:04 Status: Final Last [...] is not provided , and the patient Shira can, multiply by 1.2 12. If sex [...] the National Kidney Foundation,http ://nkd ep.nih.gov Troponin [id number] 13:54:00 Test Item Value Reference Range Interpretation Comments Troponin T (test code = MADHAV) 0.124 ng/mL 0.000-0.090 H [id number] 13:54:00 Test Item Value Reference Range Interpretation Comments NT ProBnp (test code = PBNP) >00080 pg/mL 0-124 H CK [id number] 13:54:00 Test Item Value Reference Range Interpretation Comments CK (test code = CK) 222 U/L 39-308 N CKMB (test code = CKMB) 3.1 ng/mL 0.0-4.9 N CKMB% (test code = CKMBP) 1.4 % 0.0-3.4 N CK [id number] 13:54:00 Test Item Value Reference Range Interpretation Comments CK (test code = CK) 222 U/L 39-308 N Partial Thromboplastin [id number] 13:43:00 Test Item Value Reference Range Interpretation Comments aPTT (test code = PTT) 35.70 seconds 24.39-37.25 N Prothrombin [id number] 13:43:00 Test Item Value Reference Range Interpretation Comments PT (test code = PT) 11.30 seconds 9.78-13.35 N INR (test code = INR) 0.99 Ratio 0.6-1.2 N Lactic Acid [id number] 13:41:00 Test Item Value Reference Range Interpretation Comments Lactic Acid, Bld (test code = LAC) 1.3 mmol/L 0.5-1.9 N CBC with [id number] 13:32:00 Test Item Value Reference Range Interpretation [...] code = ALYMPH) 1.2 K/cumm 0.5-4.6 N Brewster Abs (test code = AMONO) 0.6 K/cumm 0.0-1.2 N Eos Abs (test code = AEOS) 0.23 K/cumm 0.00-0.74 N Baso Abs (test code = ABASO) 0.0 K/cumm 0.00-0.21 N XR CHEST 1 [id number] 12:50:14XR CHEST 1 VIEWLOCATION: [id number]: None.INDICATION: CoughDISCUSSION:A single portable chest radiograph was [...]
[2020-04-25 18:00] LABS: Basophils % 0.6 % (0-1.3); Hematocrit 25.9 % (39.6-49.0); Lymphocytes % 18.7 % (15.3-44.8); MPV 6.6 fL (7.6-11.3); Protime INR 2.71
--- NOTE | 2020-04-25 18:18 | RAD REPORT ---
EXAM DESCRIPTION: Segun Single View04/25/2020 6:01 pm CLINICAL HISTORY: Chest pain COMPARISON: April 18, 2020 FINDINGS: Small to moderate left and small right pleural effusions Bibasilar atelectasis Upper lobes are clear Heart is moderately to markedly enlarged. Postsurgical changes involve chest
[2020-04-25 18:44] LABS: ALT/SGPT 16 U/L (12-78); AST/SGOT 23 U/L (15-37); Alkaline Phosphatase 84 U/L (45-117); BUN Blood Urea Nitrogen 42 mg/dL (7-18); Bicarbonate 31 mmol/L (21-32); Bilirubin Direct 0.3 mg/dL (0-0.2); Bilirubin Total 0.5 mg/dL (0.2-1.0); Glucose Level 143 mg/dL (74-106); Magnesium 1.8 mg/dL (1.8-2.4); Protein, Total 8.2 g/dL (6.4-8.2); Sodium Level 138 mmol/L (136-145); Troponin (Emerg Dept Use Only) 0.02 ng/mL (0.0-0.045)
[2020-04-25 18:45] LABS: NT PRO-BNP > 175000 pg/mL (<125)
--- NOTE | 2020-04-25 19:24 | RAD REPORT ---
EXAM DESCRIPTION: CT - Thorax Wo Con - 04/25/2020 7:07 pm CLINICAL HISTORY: sob COMPARISON: July 2019 TECHNIQUE: Computed axial tomography of the chest was obtained. Contrast was not requested. All CT scans are performed using dose optimization technique as appropriate and may include automated exposure control or mA/KV adjustment according to patient size. FINDINGS: The evaluation of mediastinum, irma and vessels is limited secondary to lack of IV contras t administration. Small to moderate left and small right pleural effusions with bibasilar atelectasis. Mild bilateral interstitial lung opacities. Mild mediastinal lymphadenopathy likely reactive nature Cardiomegaly. Coronary arterial calcifications. Inferior vena cava is distended. IMPRESSION: Small to moderate left pleural effusion Mild bilateral interstitial opacities likely mild interstitial edema
--- NOTE | 2020-04-25 19:41 | ER ---
Nurse's Notes [facility] Name: Salvatore Goldman Age: 65 yrs Sex: Male : 1955 Arrival Date: 04/25/2020 Time: 16:57 Bed 4 Private MD: Diagnosis: Viral Respiratory Infection Presentation: 04/25 17:02 Chief complaint: Patient states: CP continues since last visit. + SOB with exertion, ll1 cough, and sneezing. Coronavirus screen: Client denies travel out of the [place] in the last 14 days. congestion, cough unrelated to allergies, difficulty breathing, fatigue, shortness of breath, Client presents with at least one sign or symptom that may indicate coronavirus-19. Standard/surgical mask placed on the client. Ebola Screen: Patient denies travel to an Ebola-affected area in the 21 days before illness onset. Initial Sepsis Screen: Does the patient meet any 2 criteria? No. Patient's initial sepsis screen is negative. Risk Assessment: Do you want to hurt yourself or someone else? Patient reports no desire to harm self or others. Onset of symptoms is unknown. 17:02 Method Of Arrival: Wheelchair ll1 17:02 Acuity: NARDA 3 ll1 17:30 Initial Sepsis Screen: Does the patient have a suspected source of infection? No. em Patient's initial sepsis screen is negative. Historical: - Allergies: 17:05 No Known Allergies; ll1 - PMHx: 17:05 L arm HD access; Diabetes - NIDDM; Dialysis; Karposi Sarcoma (left leg); Hepatitis; ll1 HIV; Cirrhosis; heart valve; Hyperlipidemia; kidney failure; - PSHx: 17:05 left forearm dialysis fistula; partial lobectomy right; CABG; heart valve replacement; ll1 - Immunization history:: Flu vaccine is up to date. - Social history:: Smoking status: Patient denies any tobacco usage or history of. Patient/guardian denies using alcohol, street drugs. Screenin:23 Abuse screen: Denies threats or abuse. Nutritional screening: No deficits noted. em Tuberculosis screening: No symptoms or risk factors identified. Fall Risk None identified. Assessment: 17:15 General: Appears in no apparent distress. comfortable, Behavior is calm, cooperative, em appropriate for age, Reports was seen last Saturday here and seen at [facility] on for the same thing, pt request a covid swab, also reports generalized weakness Denies fever. Pain: Complains of pain in chest Pain does not radiate. Pain began 1 week ago. Neuro: Level of Consciousness is awake, alert, obeys commands, Oriented to person, place, time, situation, Appropriate for age. Cardiovascular: Capillary refill < 3 seconds Patient's skin is warm and dry. Dialysis shunt: in the left bicep, with palpable thrill, with auscultated bruit, with no erythema, with no edema, no bleeding noted. Respiratory: Reports shortness of breath on exertion cough that is productive, labored breathing Airway is patent Respiratory effort is even, unlabored, Respiratory pattern is regular, symmetrical. GI: Patient currently denies nausea, vomiting. Derm: Skin is intact, is healthy with good turgor, Skin is pink, warm \T\ dry. Musculoskeletal: Capillary refill < 3 seconds, Range of motion: intact in all extremities. 18:15 Reassessment: Patient appears in no apparent distress at this time. Patient and/or em family updated on plan of care and expected duration. Pain level reassessed. 19:30 Reassessment: Patient and/or family updated on plan of care and expected duration. Pain mt2 level reassessed. Patient is alert, oriented x 3, equal unlabored respirations, skin warm/dry/pink. Patient denies pain at this time. General: Appears in no apparent distress. comfortable, Behavior is cooperative. Vital Signs: 17:02 BP 172 / 89; Pulse 88; Resp 18; Temp 98.9; Pulse Ox 97% ; Weight 69.85 kg; Pain 0/10; ll1 18:35 BP 173 / 92; Pulse 79; Resp 18; Pulse Ox 100% on R/A; em 19:30 BP 159 / 91; Pulse 83; Resp 19; Temp 97.9(TE); Pulse Ox 97% on R/A; Pain 0/10; mt2 ED Course: 16:57 Patient arrived in ED. ds1 17:03 Triage completed. ll1 17:05 Arm band placed on Patient placed in an exam room, on a stretcher. [facility] 17:06 Calixto Dixon PA is PHCP. [facility] 17:06 Walter Jalloh MD is Attending Physician. [facility] 17:07 Jose Caban, RN is Primary Nurse. em 17:15 Patient has correct armband on for positive identification. monitoring coordinator on. Pulse em ox on. NIBP on. 17:15 Patient maintains SpO2 saturation greater than 95% on room air. em 17:40 Initial lab(s) drawn, by me, sent to lab. Inserted saline lock: 20 gauge in right em forearm, using aseptic technique. Blood collected. 18:01 XRAY Chest (1 view) In Process Unspecified. EDMS 19:07 CT Chest Wo Con In Process Unspecified. EDMS 20:06 No provider procedures requiring assistance completed. IV discontinued, intact, mt2 bleeding controlled, No redness/swelling at site. Pressure dressing applied. Administered Medications: 19:49 Drug: Decadron - Dexamethasone 10 mg Route: IVP; Site: right forearm; mt2 20:05 Follow up: Response: No adverse reaction mt2 Outcome: 19:40 Discharge ordered by . [facility] 20:07 Discharged to home ambulatory. mt2 20:07 Condition: good 20:07 Discharge instructions given to patient, Instructed on discharge instructions, follow up and referral plans. medication usage, Demonstrated understanding of instructions, follow-up care, medications, Prescriptions given X 1. 20:09 Patient left the ED. mt2 Addendum: 04/28/2020 13:36 Addendum: COVID-19 Result: Negative result given to RN to notify pt. Unable to leave a a5 voice mail due to the number provided was either not a working number, the voice mail has not been set up, or the voice mailbox is full.. Other: Contacted pt's friend Lena Herrera (under person to notify) to notify pt to call ER for results. Pt's friend called back and provided pt's new phone number [phone], pt contacted and notified of negative result. Signatures: Dispatcher [employer] Calixto Aldridge PA PA jmm Munoz, Edgar, RN RN Suki Causey ds1 Miladys Magallon RN RN [email or web address] Albin Gonzalez RN RN ll1 Molly Linda RN RN mt2
--- NOTE | 2020-04-25 19:41 | EDPHYS ---
Physician Documentation [facility] Name: Salvatore Goldman Age: 65 yrs Sex: Male : 1955 Arrival Date: 04/25/2020 Time: 16:57 Bed 4 Private MD: ED Physician Walter Jalloh HPI: 04/25 17:19 This 65 yrs old Black Male presents to ER via Wheelchair with complaints of Irregular jmm Pulse, Chest Pain, Shortness Of Breath. 17:19 The patient has shortness of breath at rest. Onset: The symptoms/episode began/occurred jmm gradually, 1 week(s) ago. Duration: The symptoms are continuous. The patient's shortness of breath is aggravated by nothing, is alleviated by nothing. Associated signs and symptoms: Pertinent negatives: fever. This is a 65 year old male with a history of ESRD, DM, that presents to the ED with complaints of cough, shortness of breath beginning approx 1 week ago. Evaluated 1 week ago and diagned with pulmonary edema. patient is scheduled for dialysis tomorrow morning. Patient also complains of mild episodes of chest pain with deep inspiration. . Historical: - Allergies: 17:05 No Known Allergies; ll1 - PMHx: 17:05 L arm HD access; Diabetes - NIDDM; Dialysis; Karposi Sarcoma (left leg); Hepatitis; ll1 HIV; Cirrhosis; heart valve; Hyperlipidemia; kidney failure; - PSHx: 17:05 left forearm dialysis fistula; partial lobectomy right; CABG; heart valve replacement; ll1 - Immunization history:: Flu vaccine is up to date. - Social history:: Smoking status: Patient denies any tobacco usage or history of. Patient/guardian denies using alcohol, street drugs. ROS: 17:19 Constitutional: Negative for fever, chills, and weight loss. jmm 17:19 Cardiovascular: Positive for chest pain, with cough. 17:19 Respiratory: Positive for shortness of breath. 17:19 All other systems are negative. Exam: 17:19 Constitutional: This is a well developed, well nourished patient who is awake, alert, jmm and in no acute distress. Head/Face: atraumatic. Eyes: EOMI, no conjunctival erythema appreciated ENT: Moist Mucus Membranes Neck: Trachea midline, Supple Chest/axilla: Normal chest wall appearance and motion. Cardiovascular: Regular rate and rhythm. No edema appreciated Respiratory: Normal respirations, no respiratory distress appreciated Abdomen/GI: Non distended, soft Back: Normal ROM Skin: General appearance color normal MS/ Extremity: Moves all extremities, no obvious deformities appreciated, no edema noted to the lower extremities Neuro: Awake and alert, normal gait Psych: Behavior is normal, Mood is normal, Patient is cooperative and pleasant Vital Signs: 17:02 BP 172 / 89; Pulse 88; Resp 18; Temp 98.9; Pulse Ox 97% ; Weight 69.85 kg; Pain 0/10; ll1 18:35 BP 173 / 92; Pulse 79; Resp 18; Pulse Ox 100% on R/A; em 19:30 BP 159 / 91; Pulse 83; Resp 19; Temp 97.9(TE); Pulse Ox 97% on R/A; Pain 0/10; mt2 MDM: 17:12 Patient medically screened. [facility] 19:39 Data reviewed: vital signs, nurses notes. Counseling: I had a detailed discussion with lizz the patient and/or guardian regarding: the historical points, exam findings, and any diagnostic results supporting the discharge/admit diagnosis, lab results, radiology results, the need for outpatient follow up, to return to the emergency department if symptoms worsen or persist or if there are any questions or concerns that arise at home. 19:39 ED course: Patient is alert and non toxic in appearance in the ED. No resp distress jmm appreciated Patient is advised to follow up with pcp and otherwise given strict return precautions. Patient understood and agree with the plan of care. . 04/25 17:07 Order name: Basic Metabolic Panel; Complete Time: 18:46 [facility] 04/25 17:07 Order name: CBC with Diff; Complete Time: 18:27 [facility] 04/25 17:07 Order name: LFT's; Complete Time: 18:46 [facility] 04/25 17:07 Order name: Magnesium; Complete Time: 18:46 [facility] 04/25 17:07 Order name: NT PRO-BNP; Complete Time: 18:46 [facility] 04/25 17:07 Order name: PT-INR; Complete Time: 18:27 [facility] 04/25 17:07 Order name: Troponin (emerg Dept Use Only); Complete Time: 18:46 [facility] 08/24 17:07 Order name: XRAY Chest (1 view); Complete Time: 18:27 [facility] 04/25 17:07 Order name: EKG; Complete Time: 17:08 [facility] 04/25 17:07 Order name: Cardiac monitoring; Complete Time: 17:08 [facility] 04/25 17:07 Order name: EKG - Nurse/Tech; Complete Time: 17:22 [facility] 04/25 17:12 Order name: COVID-19 [facility] 04/25 18:50 Order name: CT Chest Wo Con; Complete Time: 19:29 [facility] 04/25 17:07 Order name: IV Saline Lock; Complete Time: 18:42 [facility] 04/25 17:07 Order name: Labs collected and sent; Complete Time: 18:42 [facility] 04/25 17:07 Order name: O2 Per Protocol; Complete Time: 17:07 [facility] 04/25 17:07 Order name: O2 Sat Monitoring; Complete Time: 17:07 [facility] Administered Medications: 19:49 Drug: Decadron - Dexamethasone 10 mg Route: IVP; Site: right forearm; mt2 20:05 Follow up: Response: No adverse reaction mt2 Disposition: 04/26 19:52 Co-signature as Attending Physician, Walter Jalloh MD I agree with the assessment and kdr plan of care. Disposition: 04/25/20 19:40 Discharged to Home. Impression: Viral Respiratory Infection. - Condition is Stable. - Discharge Instructions: COVID-19. - Prescriptions for Zithromax Z- Derik 250 mg Oral Tablet - take 1 tablet by ORAL route as directed for 5 days Day 1 - take two (2) tablets one time. Day 2, 3, 4 , 5 take one (1) tablet once daily.; 6 tablet. - Medication Reconciliation Form, Thank You Letter, Antibiotic Education, Prescription Opioid Use form. - Follow up: Private Physician; When: 2 - 3 days; Reason: Recheck today's complaints, Continuance of care, Re-evaluation by your physician. - Notes: This patient is currently pending COVID-[address] him in isolation until test results. Please take 50 mg of zinc daily 500 mg of quercetin twice a day 4000 IU of vitamin D daily 600 mg of NAC twice a day Signatures: Dispatcher [employer] EDWalter Meeks MD MD kdr Mickail, Joel, PA PA [facility] Carlos, Lynsay, RN RN ll1 Molly Linda RN RN mt2 Corrections: (The following items were deleted from the chart) 04/25 20:09 19:40 04/25/2020 19:40 Discharged to Home. Impression: Viral Respiratory Infection. mt2 Condition is Stable. Forms are Medication Reconciliation Form, Thank You Letter, Antibiotic Education, Prescription Opioid Use. Follow up: Private Physician; When: 2 - 3 days; Reason: Recheck today's complaints, Continuance of care, Re-evaluation by your physician. lizz
[2020-04-25] MEDS ORDERED: dexAMETHasone 10 MG/ML VIAL ONE (19:53)
--- NOTE | 2020-04-26 10:45 | EKG ---
Test Date: 2020-04-25 Test Time: 17:17: Health Technician Hearing: RUDY MEASUREMENT RESULTS: Intervals: Rate: 83 AK: 192 QRSD: 80 QT: 402 QTc: 472 [place]: P: 51 AK: 192 QRS: 51 T: 63 INTERPRETIVE STATEMENTS: Normal sinus rhythm with sinus arrhythmia Minimal voltage criteria for LVH, may be normal variant Borderline ECG Compared to ECG 04/18/2020 16:50:14 Left ventricular hypertrophy now present Electronically Signed On 04-26-20 10:43:26 CDT by Rafael Bedolla
[2020-04-30 04:28] VITALS: BP 159/91; TEMP 97.9; O2SAT 97
== END 2020-04-25 20:09 | disposition home or self-care (01) ==
LOC: ER 16:56
DX: J98.8 Other specified respiratory disorders (principal); Z20.828 Contact with and (suspected) exposure to other viral communicable diseases; E11.22 Type 2 diabetes mellitus with diabetic chronic kidney disease; N18.6 End stage renal disease; Z99.2 Dependence on renal dialysis; B20 Human immunodeficiency virus [HIV] disease; C46.0 Kaposi's sarcoma of skin; Z95.1 Presence of aortocoronary bypass graft; Z95.4 Presence of other heart-valve replacement
CPT/HCPCS: 93005; 85025; 80048; 36415; 83735; 85610; 82565; 80076; 84484; 83880; 71250; 71045; 96374; 99285; U0002; J1100

== ENCOUNTER 2020-05-02 10:54 | Emergency (ER) | payer OTHER ==
[2012-05-05 09:01] VITALS: BP 144/79
--- OUTSIDE RECORDS SUMMARY | 2020-05-02 11:32 | XMS REPORT | Clinical Summary ---
:1955 Author Organization [employer] Address [address] [place] [address] Care Team Providers Name Role Phone Asked, [...] (Primary Dx); MD Sushant Viral syndrome after 05/02/2019 Social History Tobacco Use Types Packs/Day Years [...] Comments Blood Pressure 155/80 09/12/2019 9:52 PM [facility]ENTRAL [facility]ICE TR[employer]ER Pulse 104 09/12/2019 9:52 PM [employer]ENTRAL [employer]ICE [employer]ER Temperature 38.4 C (101.2 F) 09/12/2019 9:52 PM [facility]ENTRAL OFFICE [employer]ER Respiratory Rate 16 09/12/2019 9:52 PM [employer]ENTRAL OFFICE [employer]ER Oxygen Saturation 97% 09/12/2019 9:52 PM CENTRAL OFFICE [employer]ER Inhaled Oxygen Concentration - - Weight 72.6 kg (160 lb) 09/12/2019 6:46 PM CENTRAL OFFICE TR[employer] SHOOTER Height 170.2 cm (5' 7") 09/12/2019 6:46 PM CENTRAL OFFICE [employer]ER Body Mass Index 25.06 09/12/2019 6:46 PM CENTRAL OFFICE TR[employer]OOTER Plan of Treatment Health Maintenance Due Date Last Done Comments DIABETIC RETINAL EYE EXAM 1955 DIABETIC FOOT EXAM 04/24/1967 COLONOSCOPY SCREENING 04/24/2007 SHINGLES VACCINES (#1) 04/24/2007 INFLUENZA VACCINE 06/02/2020 Procedures Procedure Name Priority Date/Time Associated Comments Diagnosis CT ABDOMEN PELVIS WO STAT 09/12/2019 8:46 Res ults for this CONTRAST PM [employer] procedure are i n the results section. XR CHEST 2 VW STAT 09/12/2019 8:44 Results fo r this PM [employer] procedure are i n the results section. BLOOD CULTURE, AEROBIC STAT 09/12/2019 8:01 R esults for this & ANAEROBIC PM [employer] procedure are i n the results section. MANUAL DIFFERENTIAL STAT 09/12/2019 7:43 Resu lts for this PM [employer] procedure are i n the results section. BILIRUBIN DIRECT STAT 09/12/2019 7:43 Results for this PM [employer] procedure are i n the results section. COMPREHENSIVE METABOLIC STAT 09/12/2019 7:43 Results for this PANEL PM [employer] procedure are i n the results section. ESTIMATED GFR STAT 09/12/2019 7:43 Results fo r this PM [employer] procedure are i n the results section. VENOUS BLOOD GAS STAT 09/12/2019 7:43 Results for this PM [employer] procedure are i n the results section. TROPONIN, I-STAT STAT 09/12/2019 7:43 Results for this PM [employer] procedure are i n the results section. LACTIC ACID, I-STAT STAT 09/12/2019 7:43 Resu lts for this PM [employer] procedure are i n the results section. CBC WITH PLATELET AND STAT 09/12/2019 7:43 Re sults for this DIFFERENTIAL PM [employer] procedure are i n the results section. BLOOD CULTURE, AEROBIC STAT 09/12/2019 7:43 R esults for this & ANAEROBIC PM [employer] procedure are i n the results section. INFLUENZA ANTIGEN Routine 09/12/2019 7:43 Result s for this PM [employer] procedure are i n the results section. ECG ED PRELIMINARY Routine 09/12/2019 7:29 Resul ts for this INTERPRETATION PM [employer] procedure are in the results section. ECG 12-LEAD STAT 09/12/2019 7:25 Results for this PM [employer] procedure are i n the results section. after 05/02/[address] Abdomen Pelvis Wo Contrast (09/12/2019 8:46 PM CENTRAL OFFICE TROUBLE SHOOTER) Specimen Narrative Performed At EXAMINATION: CT ABDOMEN [...] Radiology Results Incoming - 09/12/2019 8:56 PM [employer]ENTRAL [employer]ICE [employer]ER EXAMINATION: CT ABDOMEN PELVIS WO CONTRAST CLINICAL [...] inflammation. Performing Organization Address City/State/Zipcode Phone Number [facility] [address] [place] [address] XR Chest 2 Vw (09/12/2019 8:44 PM CENTRAL OFFICE TROUBLE SHOOTER) Specimen Narrative Performed At EXAMINATION: XR CHEST [...] pneumothorax. Visualized osseous stru ctures are intact. [id number] Procedure Note Interface, Radiology Results Incoming - 09/12/2019 8:49 PM CENTRAL OFFICE [employer] SHOOTER EXAMINATION: XR CHEST 2 VW CLINICAL HISTORY: sob COMPARISON: None IMPRESSION: Status post median sternotomy and valvul ar surgery. Atrial clip present. There is mild cardiomegaly. There is mild central vascular congestion. There is small right pleural effusion with volume loss in the right base. Lungs are otherwise clear. There is no pneumothorax. Visualized osseous stru ctures are intact. [id number] Performing Organization Address City/[facility] Phone Number [facility] [address] [place] [address] Blood culture, aerobic & anaerobic (09/12/2019 8:01 PM CENTRAL OFFICE TROUBLE SHOOTER)Only the most recent of2 resultswithin the time period is included. [facility] Blood culture No growth after 5 days of incubation. BETI PEREZ [facility] isolate Comment: HOSPITAL Specimen Information Specimen Source: Blood Specimen Site: Hand, right Specimen Blood - Hand, right Performing Organization Address [facility] Centercova Phone Number [facility] DEPARTMENT OF PATHOLOGY AND [address] [place], [place] [address] [address] Estimated GFR (09/12/2019 7:43 PM CENTRAL OFFICE TROUBLE SHOOTER) [facility] Estimated GFR 12 (A) mL/min/1.73 [facility] Comment: m2 KEMP Catergory Units Interpretation [facility] G1 [...] 2014. Specimen Plasma specimen Performing Organization Address [facility]/Zipcode Phone Number DEPARTMENT OF PATHOLOGY AND [address] [place], [place] [address] [facility] [address] [place] [address] EM[facility] CENTER Troponin, I-Stat (09/12/2019 7:43 PM CENTRAL OFFICE TROUBLE SHOOTER) Troponin, I-Stat 0.01 0.00 - 0.08 [facility] Comment: ng/mL KEMP 0.09 - 1.49 ng/ml May indicate increa sed risk of acute EMERGENCY CARE coronary syndrome. [place] >=1.5 ng/ml Consistent with acute myocardial infarction. The diagnostic value of a single normal or non-diagnos tic result is questionable. Serial samples at 2-6 hour i ntervals are required to rule out acute myocardial injury. Specimen Plasma specimen Performing Organization Address City/[facility] Centercode Phone Number DEPARTMENT OF PATHOLOGY AND [address] [place] [address] Lactic acid, I-Stat (09/12/2019 7:43 PM CENTRAL OFFICE TROUBLE SHOOTER) Pathologist [facility] Lactic acid, I-Stat 2.0 0.5 - 2.2 mmol/L [facility] Specimen Plasma specimen Performing Organization Address [facility] Phone Number DEPARTMENT OF PATHOLOGY AND [address] [place] [address] Manual differential (09/12/2019 7:43 PM CENTRAL OFFICE TROUBLE SHOOTER) Pathologist [facility] Manual differential PERFORMED [facility] Neutrophils 69.0 39.0 - 69.0 % [facility] Lymphocytes 17.0 (L) 25.0 - 45.0 % [facility] Monocytes 14.0 (H) 0.0 - 10.0 % [facility] Eosinophils 0.0 0.0 - 5.0 % [facility] Basophils 0.0 0.0 - 1.0 % [facility] Metamyelocytes 0 % [facility] Promyelocytes 0 % [facility] Platelet slide review Cayla slt decr [facility] Anisocytosis Moderate [facility] Polychromasia Moderate [facility] Spherocytes Occasional [facility] Ovalocytes Moderate [facility] Specimen Performing Organization Address [facility] Centercode Phone Number [facility] DEPARTMENT OF PATHOLOGY AND [address] [place] [phone] GENOMIC MEDICINE [facility] [address] [place] [address] [facility] EMERGENCY [id number] [place] [id number] [place] [address] CBC with platelet and differential (09/12/2019 7:43 PM CENTRAL OFFICE TROUBLE SHOOTER) Pathologist Sig nature WBC 6.31 4.50 - 11.00 k/uL [facility] RBC 3.41 (L) 4.40 - 6.00 m/uL [facility] HGB 11.3 (L) 14.0 - 18.0 g/dL [facility] HCT 33.9 (L) 41.0 - 51.0 % [facility] MCV 99.4 82.0 - 100.0 fL [facility] MCH 33.1 27.0 - 34.0 pg [facility] MCHC 33.3 31.0 - 37.0 g/dL [facility] RDW - SD 45.9 37.0 - 55.0 fL [facility] MPV 8.0 (L) 8.8 - 13.2 fL [facility] Platelet count 133 (L) 150 - 400 k/uL [facility] Neutrophils 69.0 39.0 - 69.0 % [facility] Lymphocytes 17.0 (L) 25.0 - 45.0 % [facility] Monocytes 14.0 (H) 0.0 - 10.0 % [facility] Eosinophils 0.0 0.0 - 5.0 % [facility] Basophils 0.0 0.0 - 1.0 % [facility] Specimen Blood Performing Organization Address City/State/Zipcode Phone Number DEPARTMENT OF PATHOLOGY AND [id number] [place] [address] [facility] [id number] [place] [address] [facility] Influenza antigen (09/12/2019 7:43 PM CENTRAL OFFICE TROUBLE SHOOTER) Influenza antigen Flue B: positive Flue A: negative [facility] Comment: [facility] Specimen Source: Nares Specimen Site: Left Specimen Nares - Left Performing Organization Address City/[facility]/Zipcode Phone Number DEPARTMENT OF PATHOLOGY AND [address] [place], [place] [phone] [address] Venous blood gas (09/12/2019 7:43 PM CENTRAL OFFICE TROUBLE SHOOTER) Pathologist Sig nature pH, venous, POC 7.52 (H) 7.32 - 7.42 [facility] pCO2, venous, POC 41 (L) 45 - 51 mm Hg [facility] pO2, venous, POC 32 25 - 40 mm Hg [facility] Base excess, venous, 9 (H) -2 - 2 mmol/L [facility] Bicarbonate, venous, 32.9 (H) 21.0 - 28.0 [facility] mmol/L [facility] O2 saturation, 68 40 - 70 % [facility] venous, POC [facility] Specimen Blood Performing Organization Address City/[facility] Centercode Phone Number DEPARTMENT OF PATHOLOGY AND [address] [place], [place] [phone] [place] [address] [facility] [place] Bilirubin direct (09/12/2019 7:43 PM CENTRAL OFFICE TROUBLE SHOOTER) Pathologist Sig nature Bilirubin direct 0.3 0.0 - 0.3 mg/dL [facility] Specimen Plasma specimen Performing Organization Address City/[facility]/Zipcode Phone Number DEPARTMENT OF PATHOLOGY AND [address] [place] [address] CENTER Comprehensive metabolic panel (09/12/2019 7:43 PM CENTRAL OFFICE TROUBLE SHOOTER) Pathologist Sig nature Sodium 135 128 - 145 mEq/L [facility] Potassium 4.9 3.6 - 5.1 mEq/L [facility] CO2 30 18 - 33 mEq/L [facility] Chloride 91 (L) 98 - 108 mEq/L [facility] Glucose 94 73 - 118 mg/dL [facility] Calcium 9.1 8.0 - 10.3 mg/dL [facility] BUN 29 (H) 7 - 22 mg/dL [facility] Creatinine 5.5 (H) 0.7 - 1.2 mg/dL [facility] Alkaline phosphatase 76 53 - 128 U/L [facility] ALT 38 10 - 47 U/L [facility] AST 45 (H) 11 - 38 U/L [facility] Total bilirubin 0.7 0.2 - 1.6 mg/dL [facility] Albumin 3.7 3.3 - 5.5 g/dL [facility] Protein 8.2 (H) 6.4 - 8.1 g/dL [facility] Anion gap 14@ANIO 7 - 15 mEq/L [facility] A/G ratio 0.8 0.7 - 3.8 [facility] Specimen Plasma specimen Performing Organization Address City/State/Zipcode Phone Number DEPARTMENT OF PATHOLOGY AND [address] [place] [address] [place] [address] EMERGENCY [facility] ECG ED Preliminary Interpretation - Not an Order (09/12/2019 7:29 PM CENTRAL OFFICE TR[employer] SHOOTER) Narrative Performed At Ty Nieves MD 09/13/2019 6:41 AM ECG ED Preliminary Interpretation - Not an Order Performed by: Ty Nieves MD Authorized by: Ty Nieves MD ECG reviewed by ED Physician in the abse nce of a preschool teacher assistant: yes Interpretation: Interpretation: non-specific Rate: ECG rate: 96 ECG rate assessment: normal Rhythm: Rhythm: sinus rhythm Ectopy: Ectopy: none QRS: QRS axis: Normal Conduction: Conduction: normal ST segments: ST segments: Normal T waves: T waves: peaked Peaked: V3, V4, V5, V6, II, III and aVF ECG 12 lead (09/12/2019 7:25 PM CENTRAL OFFICE TROUBLE SHOOTER) Pathologist Sig nature Ventricular rate 96 [facility] Atrial rate 96 [facility] MO interval 182 [facility] QRSD interval 80 [...] available. Performing Organization Address City/State/Zipcode Phone Number [facility] MUSE [address] [place] [address] after 05/02/2019 Insurance Payer Benefit Plan / Subscriber ID Effective Dates Phone Addre ss Type Group MEDICARE MEDICARE PART A xxxxxxxxxxx 2010-Present [place] Medicare [place] B [id number] Advance Directives For more information, please contact: [phone] Type Date Recorded Patient Central Lab Technician Explanati on Advance Directives, Living Will and Medical Power of Critical Care Rn
--- OUTSIDE RECORDS SUMMARY | 2020-05-02 11:32 | XMS REPORT | Clinical Summary ---
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 Shelf Model / Identifier Expiration Serial / Date Lot Sys Atriclip Exclsn Flx 40mm [id number] - Sn/A Cardiovascular N/A: ATRICURE 07/03/2020 [id number] / Implanted: Qty: 1 on 01/10/2018 by Tasenem Black MD Heart N/A / 20202 Cath Dlys Trialysis Pwr 30cm [id number] - [id number] Catheter Left: CR BARD:ACCESS 03/01/2019 [id number] / Implanted: Qty: 1 on 01/10/2018 by Tasneem Black M D Dialysis Long Groin SYS / Term [id number] Valve Mitrl [facility] Std Mstr 27mm [id number] - [id number] Valves Heart [facility] 12/27/2021 [id number] / Implanted: Qty: 1 on 01/10/2018 by Tasneem Black MD MED:CARDIAC [id number] / SURG N/A [place] For Femoral Neck System- Depuysynthes Left: DePuy 06/01/2029 REF [id number] / Implanted: Qty: 1 on 02/28/2020 by Sukumar Callejas M D Hip Orthopaedics / [id number] 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 Lenght Left: DEPUY 06/01/2029 REF [id number] / Implanted: Qty: 1 on 02/28/2020 by Sukumar Callejas M D Hip ORTHOPEDICS / [id number] Femoral Neck System Plate 2 Hole Left: DEPUY 09/01/2029 REF [id number] / Implanted: Qty: 1 on 02/28/2020 by Sukumar Callejas M D Hip ORTHOPEDICS / [id number] 5.0mm Ti Locking Scr Slf-Tpng W/T25 Stardrive 38mm Left: DEPUY 08/01/2029 REF [id number] / Implanted: Qty: 1 on 02/28/2020 by Sukumar Callejas M D Hip ORTHOPEDICS / [id number] 5.0mm Ti Locking Scr Slf Tpng W/T25 Stardrive 38mm Left: DEPUY 07/02/2029 REF [id number] / Implanted: Qty: 1 on 02/28/2020 by Sukumar Callejas M D Hip ORTHOPEDICS / [id number] Procedures Procedure Name Priority Date/Time Associated Comments Diagnosis REPORT OF PROCEDURE - 04/26/2020 1:01 ENDOSCOPY SCAN PM CDT ED ECG INTERPRETATION Routine 04/22/2020 12:23 Re [...] CDT neck of left femur, initial encounter ([facility]) HEMODIALYSIS INPATIENT Routine 02/27/2020 6:35 R esults [...] n the results section. after 05/02/2019 Results EKG-SCANNED (04/26/2020 1:01 PM CDT) Narrative Performed At This result has an attachment that is no t available. ECG/EKG Interpretation (04/22/2020 12:23 AM CDT) Narrative [...] Protime 25.1 (H) 11.9 - 14.2 seconds [facility] INR 2.34 <=5.90 [facility] PTT 38.7 (H) 22.5 - 36.0 seconds [facility] Specimen Blood Narrative Performed At Effective 01/28/2019: PT Reference Range [facility] Change New: 11.9-14.2Previous: 11.7-14.7 RECOMMENDED COUMADIN/WARFARIN INR THERAPY RANGES STANDARD DOSE: 2.0-3.0Includes: PROPHYLAXIS for venous thrombosis, systemic embolization; TREATMENT for venous thrombosis and/or pulmonary embolus. HIGH RISK: Target INR is 2.5-3.5 for patients wiht mechanical heart valves. Performing Organization Address City/State/Zipcode Phone Number [facility] [address] [place] [address] CENTER CBC with platelet count + automated diff (04/21/2020 10:30 PM CDT)Only the most recent of7 resultswithin the time period is included. WBC 6.2 3.5 - 10.5 K/L [facility] RBC 2.92 (L) 4.63 - 6.08 M/L [facility] Hemoglobin 9.3 (L) 13.7 - 17.5 GM/DL [facility] Hematocrit 29.5 (L) 40.1 - 51.0 % [facility] MCV 101.0 (H) 79.0 - 92.[address] [facility] MCH 31.8 25.7 - 32.[address] [facility] MCHC 31.5 (L) 32.3 - 36.5 GM/DL [facility] RDW 13.3 11.6 - 14.4 % [facility] Platelets 126 (L) 150 - 450 K/CU MM [facility] MPV 9.0 (L) 9.4 - 12.[address] [facility] nRBC 0 0 - 0 /[address] [facility] % Neutros 65 % [facility] % Lymphs 20 % [facility] % Monos 13 % [facility] % Eos 2 % [facility] % Baso 1 % [facility] # Neutros 4.02 1.78 - 5.38 K/L [facility] # Lymphs 1.23 (L) 1.32 - 3.57 K/L [facility] # Monos 0.82 0.30 - 0.82 K/L [facility] # Eos 0.12 0.04 - 0.54 K/L [facility] # Baso 0.03 0.01 - 0.08 K/L [facility] Immature 0 0 - 1 % [facility] Granulocytes-Relative MEDICAL CE NTER Specimen Blood Performing Organization Address City/[facility] Phone Number [facility] [address] [place] [address] CENTER Troponin I (04/21/2020 10:30 PM CDT) Troponin I 0.04 (H) 0.00 - 0.03 ng/mL [facility] Specimen Blood Narrative Performed At Troponin I (TnI) levels must be interpreted [facility] in the context of the presenting symptoms and the clinical findings. Elevated TnI levels indicate myocardial damage, but are not specific for ischemic heart disease. Elevated TnI levels are seen in patients with other cardiac conditions (including myocarditis and congestive heart failure), and slight TnI elevations occur in patients with other conditions, including sepsis, renal failure, acidosis, acute neurological disease, and persistent tachyarrhythmia. Head Of Integrated Media ID - PIJESSE Chapman Performing Organization Address City/[facility] Phone Number [facility] [address] [place] [address] CENTER B-type Natriuretic Factor (BNP) (04/21/2020 10:30 PM CDT) BNP 1,507 (H) 0 - 100 pg/mL [facility] Specimen Blood Narrative Performed At Head Of Integrated Media ID - AKSHAT L [facility] Performing Organization Address [facility] Cent[facility] Phone Number [address] [address] CENTER Basic Metabolic Panel (04/21/2020 10:30 PM CDT)Only the most recent of7 results within the time period is included. Sodium 137 136 - 145 meq/L [facility] Potassium 4.2 3.5 - 5.1 meq/L [facility] Chloride 94 (L) 98 - 107 meq/L [facility] CO2 34 (H) 22 - 29 meq/L [facility] BUN 21 7 - 21 mg/dL [facility] Creatinine 4.95 (H) 0.57 - 1.25 mg/dL [facility] Glucose 126 (H) 70 - 105 mg/dL [facility] Calcium 9.4 8.4 - 10.2 mg/dL [facility] EGFR 14Comment: ESTIMATED GFR IS mL/min/1.73 sq m [facility] NOT ACCURATE CREATININE [facility] CLEARANCE IN PREDICTING GLOMERULAR FILTRATION RATE. ESTIMATED GFR IS NOT APPLICABLE FOR DIALYSIS PATIENTS. Specimen Blood Narrative Performed At Head Of Integrated Media ID - AKSHAT Chapman [facility] Performing Organization Address [facility] Cent[facility]ode Phone Number [address] [address] CENTER XR chest 2 views (04/21/2020 10:05 PM CDT) Specimen Narrative Performed At FINAL REPORT [facility] INDICATION: SHORTNESS OF BREATH COMPARISON: 01/04/2019 TECHNIQUE: [...] 382 ms QTC Calculation(Bazett) 457 ms R [place] 50 degrees T [place] 73 degrees Undetermined rhythm Nonspecific ST abnormality Abnormal ECG When compared with ECG of 16-DEC-2018 13 :58, Current undetermined rhythm precludes rh [facility] comparison, needs review Confirmed by MD SHAYNA, GUSTAVO ([id number]) on 020 8:10:24 PM Procedure Note Interface, External Ris In - 2020 8:10 PM CDT Ventricular Rate 86 BPM Atrial Rate 88 BPM QRS Duration 76 ms Q-T Interval 382 ms QTC Calculation(Bazett) 457 ms R [place] 50 degrees T [place] 73 degrees Undetermined rhythm Nonspecific ST abnormality Abnormal ECG When compared with ECG of 16-DEC-2018 13 :58, Current undetermined rhythm precludes rh ythm comparison, needs review Confirmed by MD CORRAL MAJID ( 190) on 2020 8:10:24 PM Performing Organization Address City/State/Zipcode Phone Number [employer] MUSE RHYTHM STRIP - SCAN (03/07/2020 11:30 AM CDT) Narrative Performed At This result has an attachment that is no t available. POC-Glucose meter (03/03/2020 3:17 PM CDT)Only the most recent of18 results within the time period is included. POC-Glucose Meter 133 (H)Comment: : TESTED 70 - 110 mg/dL [facility] [id number]: Head Of Integrated Media/Physical Therapy Supervisor ID = [id number] for Chapin Raquelmarybeth Specimen Blood Performing Organization Address [facility] [place] [address] CENTER HEMODIALYSIS INPATIENT (03/03/2020 12:23 PM CDT) [...] PTT 67.8 (H) 22.5 - 36.0 seconds [facility] Specimen Blood Performing Organization Address City/[facility] Cent[facility]ode Phone Number [place] [phone] [place] [address] [employer] Daily Prothrombin time/INR while on warfarin (03/03/2020 4:20 AM CDT)Only the most recent of5 resultswithin the time period is included. Protime 32.1 (H) 11.9 - 14.2 seconds [facility] INR 3.[address] <=[address] [facility] Specimen Blood Narrative Performed At Effective 01/28/2019: PT Reference Range [facility] Change New: 11.9-14.2Previous: 11.7-14.7 RECOMMENDED COUMADIN/WARFARIN INR THERAPY RANGES STANDARD DOSE: 2.0-3.0Includes: PROPHYLAXIS for venous thrombosis, systemic embolization; TREATMENT for venous thrombosis and/or pulmonary embolus. HIGH RISK: Target INR is 2.5-3.5 for patients wiht mechanical heart valves. While on warfarin. Performing Organization Address City/[facility] Cent[facility]ode Phone Number [address] [address] [employer] [place] HEMODIALYSIS INPATIENT (03/01/2020 12:40 PM CDT) Narrative [...] Iron 125.0 40.0 - 160.0 ug/dL [facility] TIBC 219 (L) 250 - 450 ug/dL [facility] Iron % Saturation 57 (H) 20 - 55 % [facility] Specimen Blood Narrative Performed At Head Of Integrated Media ID - JOEL W [facility] Performing Organization Address City/State/Zipcode Phone Number [address] [address] CENTER Ferritin (02/27/2020 3:19 PM CDT) Ferritin 5,182.19 (H) 5.00 - 275.00 ng/mL [facility] Specimen Blood Narrative Performed At Head Of Integrated Media ID - JOEL W [facility] Performing Organization Address City/[facility]/Zipcode Phone Number [address] [address] CENTER Platelet count (02/27/2020 12:30 PM CDT) Platelets 116 (L) 150 - 450 K/CU MM [facility] Specimen Blood Narrative Performed At Head Of Integrated Media ID - [id number] [facility] No clot Performing Organization Address City/[facility]/Zipcode Phone Number [address] [address] CENTER Hepatitis B surface antigen (02/27/2020 10:18 AM CDT) HBsAg Screen Nonreactive Nonreactive [facility] Specimen Blood Narrative Performed At Specimen is considered negative for HBsAg. [facility] Performing Organization Address City/State/Zipcode Phone Number [address] [address] CENTER Antibody identification (02/27/2020 8:56 AM CDT) ANTIBODY ID (JARROD) UNID IgG SAF[place] T X Antibody Consult SIGNED OUTComment: An IgG antibody of [place] undetermined specificity is detected, transfuse crossmatch compatible RBCs.Electronic Signature: Cale Shirley M.D. Specimen Performing Organization Address City/[facility]/Zipcode Phone Number [place] XR wrist 2 views left (02/27/2020 8:49 AM CDT) Specimen Narrative Performed At FINAL REPORT RIS TECHNIQUE: Frontal, oblique, and lateral views of the left wrist. INDICATION: Fall immobility. COMPARISON: None. FINDINGS: No acute fractures or dislocations. Joint spaces are within normal limits. There are atherosclerotic calcifications of the vessels. Surgical clips project over the distal radius.. IMPRESSION: No acute osseous abnormality. Signed: Bhaivn Artis MD Report Verified Date/Time:02/27/2020 09:19:08 Reading Location: [facility] B1 C013Y CT Body R eading Room [...] Verified Date/Time: 02/27/2020 0 9:19:08 Reading Location: [facility] B1 C013Y CT Body R eading Room Performing Organization Address City/State/Zipcode Phone Number RIS Potassium (02/27/2020 7:53 AM CDT) Potassium 5.0 3.5 - 5.1 meq/L [facility] Specimen Blood Narrative Performed At Head Of Integrated Media ID - AKSHAT Chapman [facility] MED ICAL CENTER Performing Organization Address City/State/Zipcode Phone Number [facility] MEDICAL [address] [place] [address] CENTER XR hip 2 views [...] MD Report Verified Date/Time:02/27/2020 07:23:52 Reading Location: [address] Mapidy Ashley [facility] Room Procedure Note Interface, External Ris In [...] Verified Date/Time: 02/27/2020 0 7:23:52 Reading Location: [facility] C013 [place] [facility] Room Performing Organization Address City/State/Zipcode Phone Number [...] MD Report Verified Date/Time:02/27/2020 07:23:52 Reading Location: [facility] C013V [facility] Room Procedure Note Interface, External Ris In [...] Verified Date/Time: 02/27/2020 0 7:23:52 Reading Location: [facility] C013V Julia Ramirez [facility] Room Performing Organization Address City/State/Zipcode Phone Number [facility] SARS-CoV2/RT-PCR (Asymptomatic ONLY) (02/27/2020 1:52 AM CDT) SARS-COV2/RT-PCR Negative Not Detected, Negative [facility] SARS-COV-2 PERFORMING LAB [facility] Specimen Other Narrative Performed At Negative result for this test determines that [facility] SARS-CoV-2 RNA was not present in the [...] the Act. Fact Sheet for Healthcare Providers: https://www.[employer]/sites/default/files/pro duct/documents/Fact_Sheet_HC_Providers_Lyra_SA RS-CoV-2.pdf Fact Sheet for Healthcare Patients: https://www.[employer]/sites/default/files/pro duct/documents/Fact_Sheet_Patients_Lyra_SARS-C oV-2.pdf Performing Laboratory: [address] [place] [address] Performing Organization Address City/[facility]ode Phone Number [facility] MEDICAL [address] [place] [address] CENTER Type and screen, automated (02/27/2020 1:23 AM CDT) ABO/RH AUTOMATED (BEAKER) AB POSITIVE [facility] Ab Scrn POSITIVEComment: ECHO [address] [facility] Specimen Blood Performing Organization Address [facility]/Zipcode Phone Number [address] [address] Phosphorus (02/27/2020 1:23 AM CDT) Phosphorus 7.3 (H) 2.3 - 4.7 mg/dL [facility] Specimen Blood Narrative Performed At Head Of Integrated Media ID - AKSHAT Chapman [facility] Performing Organization Address [facility] Centercode Phone Number [address] [address] CENTER Magnesium (02/27/2020 1:23 AM CDT) Magnesium 1.9 1.6 - 2.6 mg/dL [facility] Specimen Blood Narrative Performed At Head Of Integrated Media ID - AKSHAT Chapman [facility] Performing Organization Address [facility] Centercode Phone Number [address] [address] [place] Comprehensive metabolic panel (02/27/2020 1:23 AM CDT) Protein, Total 9.6 (H) 6.0 - 8.3 gm/dL [facility] Albumin 4.3 3.5 - 5.0 g/dL [facility] ER Alkaline Phosphatase 85 40 - 150 U/L [facility] ER Total Bilirubin 1.1 0.2 - 1.2 mg/dL [facility] ER Sodium 132 (L) 136 - 145 meq/L [facility] ER Potassium 5.9 (H) 3.5 - 5.1 meq/L [facility] ER Chloride 91 (L) 98 - 107 meq/L [facility] ER CO2 24 22 - 29 meq/L [facility] ER BUN 58 (H) 7 - 21 mg/dL [facility] ER Creatinine 8.80 (H) 0.57 - 1.25 mg/dL [facility] ER Glucose 99 70 - 105 mg/dL [facility] Calcium 9.2 8.4 - 10.2 mg/dL [facility] AST 44 (H) 5 - 34 U/L [facility] ALT 36 6 - 55 U/L [facility] EGFR 7Comment: ESTIMATED GFR mL/min/1.73 sq m [facility] HOSPITALKierraCorasWorks [facility] IS NOT ACCURATE [facility] CREATININE CLEARANCE IN PREDICTING GLOMERULAR FILTRATION RATE. ESTIMATED GFR IS NOT APPLICABLE FOR DIALYSIS PATIENTS. Specimen Blood Narrative Performed At Head Of Integrated Media ID - JIMYAYA L [facility]OSPITALKierraCOAST[facility] Performing Organization Address City/State/Zipcode Phone Number [facility]OSPITALKierra[facility] [address] [place] [address] CENTER after 05/02/2019 Insurance Payer Benefit Plan / Group Subscriber ID Type Phone A ddress MEDICARE MEDICARE A B xxxxxxxxxxx Medicare CDC REVIEW CDC REVIEW xxxxxxxx [address] [place], [place] [phone] Advance Directives For more information, please contact:[facility] HospitalDafne GaleFormerly [facility] Psychiatric HospitalOvaapj[address] [place] [address] [phone] Code Status Date Activated Date Inactivated Comments [...]
--- OUTSIDE RECORDS SUMMARY | 2020-05-02 11:52 | XMS REPORT | Continuity of Care Document ---
:1955 Author Organization [facility] t Address [address] [place] [address] Care Team Providers Name Role Phone UNKNOWN, [...] [facility]xx [facility] CDC REVIEWCDC xxxxxxxx [facility] REVIEWxxxxxxxxPO - Medica [facility] [id number] MEDICAREMEDICARE PART A xxxxxxxxxxx 2010 [address] AND 00:00:00 [employer] Bxxxxxxxxxxx2010-Pre [place] Condition Condition Condition Status Onset Resolution Last Treating Co mments Source Name Details Category Date Date Treatment Clinician Date Fractured Fractured Disease Active [facility] femoral femoral 02-25 [facility] - neck neck 00:00: Medical 00 [place] Drug-induc Drug-induc Disease Active [facility] ed ed 12-22 [facility] - thrombocyt thrombocyt 00:00: Wa dical openia openia 00 [place] S/P S/P Disease Active [facility] R-thoracot R-thoracot 12-17 Khushbu kes - nilesh, nilesh, 00:00: Medical decort, decort, 00 Center 12/17 by 12/17 by Sam Vargas Recurrent Recurrent Disease Active 2017-[address] right right 2 [facility] - pleural pleural 00:00: Medical effusion effusion 00 Center Pleural Pleural Disease Active 2017-[address] effusion effusion 09-28 [facility] - 00:00: Medical 00 [place] Chronic Chronic Disease Active [facility] anticoagul anticoagul 05-28 Khushbu kes - ation ation 00:00: Medical 00 [place] Scrotal Scrotal Disease Active [facility] edema edema 05-28 [facility] - 00:00: Medical 00 [place] Groin Groin Disease Active [facility] abscess [...] Center ESRD on ESRD on Disease Active [facility] hemodialys hemodialys [facility] - is is Medical Center Allergies, Adverse Reactions, Alerts Allergy Allergy Status Severity Reaction(s) Onset Inactive Treating Comm ents Source Name Type Date Date Clinician Codeine Drug Active Other (See Pt denies [facility] Intol[facility] Comments) 12-02 intoleran [facility] - nce 00:00: ce to Medical 00 pain meds Center 12/18/18 Family History Family Member Diagnosis Comments Start Date Stop Date Source Natural father Diabetes [facility] Natural mother Heart disease [facility] Social History Social Habit Start Date Stop Date Quantity Comments Source History [facility] Meth odist Alcohol Std Drinks History [facility] Meth odist Alcohol Binge Sex Assigned At [facility] Alcohol intake 2019-09-12 2019-09-12 Lifetime [facility] thodist 00:00:00 00:00:00 non-drinker (finding) History [facility] 2019-09-12 2019-09-12 1 [place] Meth odist Alcohol Frequency 00:00:00 00:00:00 Smoking Status Start Date Stop Date Source Never smoker [facility] Medications Ordered Filled Start Stop Current Ordering [...] tablet codeine-gua 2019-0 Yes acute pain 5mL [id number] Take 5 mL López ifenesin 09-12 [id number] by mouth 3 Methodi (GUAIFENESI 18:52: 3D [...] moderate pain .acute pain. ergocalcife 2020-0 Yes [id number] Q7D Take [place] 1-11 50,000 [...] patient [facility] - 6 MG tablet 00:[facility] Medical 00 ns for Center details, 12 [...] daily. Medical tablet 47 Center ergocalcife Yes [id number] Q7D Take [facility] rol - 50,000 [facility] - (VITAMIN 17:54: Units by Medic al D2) 50,[address] unit a week. capsule aspirin 81 Yes 81mg QD Take [address] MG EC 6-24 by mouth [facility] - tablet 22:06: daily. Medical 28 [place] cholecalcif Yes Take by [facility] gavin, 4-02 mouth. [facility] D[facility], 08:57: Medica [...] Source Systolic blood 2020-04-21 23:45:00 173 mm[Hg] [facility] Diastolic blood 2020-04-21 23:45:00 84 mm[Hg] [facility] Heart rate 2020-04-21 23:45:00 87 /min [facility] Body temperature 2020-04-21 23:45:00 36.72 Marjorie [facility] Respiratory rate 2020-04-21 23:45:00 17 /min [facility] Oxygen saturation in 2020-04-21 23:45:00 98 /min [facility] - Arterial blood by Medical Ce nter Pulse oximetry Body height 2020-04-21 20:57:00 170.2 cm [facility] Body weight Measured 2020-04-21 20:57:00 69.854 kg [facility] BMI 2020-04-21 20:57:00 24.12 kg/m2 [facility] Systolic blood 2019-09-12 21:52:03 155 mm[Hg] Luisto n [employer] pressure Diastolic blood 2019-09-12 21:52:03 80 mm[Hg] [place] [facility] pressure Heart rate 2019-09-12 21:52:03 104 /min López [employer] Body temperature 2019-09-12 21:52:03 38.44 Marjorie [place] [employer] Respiratory rate 2019-09-12 21:52:03 16 /min [place] [employer] Oxygen saturation in 2019-09-12 21:52:03 97 /min López [employer] Arterial blood by Pulse oximetry Body height 2019-09-12 18:46:00 170.2 cm López [employer] Body weight 2019-09-12 18:46:00 72.576 kg López [employer] BMI 2019-09-12 18:46:00 25.06 kg/m2 López [employer] Procedures Procedure Date / Time Performing Clinician Source Performed REPORT OF PROCEDURE - 2020-04-26 13:01:45 Provider, [facility] SCAN [facility] ED ECG INTERPRETATION 2020-04-22 00:23[facility]OL[facility] PAN[facility] (7) 2020-04-21 22:30:00 Margarita [facility] PT/APTT 2020-04-21 [facility]:30[facility]-TYPE NATRIURETIC FACTOR 2020-04-21 22:30:00 aMrgarita, [facility] (BNP) [facility] TROPONIN I 2020-04-21 22:30:[facility] CBC W/PLT COUNT & AUTO 2020-04-21 22:30:00 [facility] 2 VIEWS 2020-04-21 22:05:00 Margarita [facility] ECG 12-LEAD 2020-04-21 20:57:00 [facility] RHYTHM STR[facility] - SCAN 2020-03-07 11:30:22 Provider, [facility] [id number] 2020-03-05 00:00:00 ENCPL 2Y6F52S 2020-03-05 00:00:00 ENCPL 2V2I57Q 2020-03-05 00:00:00 ENCPL 2N8E90M 2020-03-05 00:00:00 ENCPL 1O2U25E 2020-03-05 00:00:00 ENCPL 7G2S25O 2020-03-05 00:00:00 ENCPL 6D0W82R 2020-03-05 00:00:00 ENCPL 7N7O39V 2020-03-05 00:00:00 ENCPL 8J8E13M 2020-03-05 00:00:00 ENCPL 3X9B15U 2020-03-05 00:00:00 ENCPL 7V0W88W 2020-03-05 00:00:00 ENCPL 5N4S30S 2020-03-05 00:00:00 ENCPL 5H0S11O 2020-03-05 00:00:00 ENCPL 8P0D08B 2020-03-05 00:00:00 ENCPL 6G2K93N 2020-03-05 00:00:00 ENCPL 1R3X67K 2020-03-05 00:00:00 ENCPL 6K3D85N 2020-03-05 00:00:00 ENCPL 2H0R57Z 2020-03-05 00:00:00 ENCPL 4A9M27O 2020-03-05 00:00:00 ENCPL 3T1F13O 2020-03-05 00:00:00 ENCPL 8T5J50S 2020-03-05 00:00:00 ENCPL POCT-GLUCOSE METER 2020-03-03 15:17:00 Florencio Ocampo [facility] POCT-GLUCOSE METER 2020-03-03 12:24:00 Florencio Ocampo [facility] HEMODIALYSIS INPATIENT 2020-03-03 12:23:00 Abena Squires [facility] APTT 2020-03-03 09:05:00 Florencio Ocampo [facility] APTT 2020-03-03 06:33:00 Florencio Ocampo [facility] BASIC METABOLIC PANEL (7) 2020-03-03 04:20:00 Florencio Ocampo [facility] PROTHROMBIN TIME/INR 2020-03-03 04:20:00 Florencio Ocampo [facility] CBC W/PLT COUNT & AUTO 2020-03-03 04:19:00 Florencio Ocampo Joelle WILIAM I [facility] POCT-GLUCOSE METER 2020-03-02 21:17:00 Lety Ocampojessee Lai [facility] APTT 2020-03-02 20:45:00 Florencio Ocamporamakrishna [facility] APTT 2020-03-02 18:38:00 Justin Florencio Lai [facility] POCT-GLUCOSE METER 2020-03-02 16:57:00 Justin Florencio Lai [facility] POCT-GLUCOSE METER 2020-03-02 11:53:00 Justin Florencio Lai [facility] APTT 2020-03-02 11:29:00 Justin Florencio Lai [facility] POCT-GLUCOSE METER 2020-03-02 08:16:00 Justin Florencio Lai [facility] APTT 2020-03-02 05:09:00 Justin Florencio Jaeramakrishna [facility] BASIC METABOLIC PANEL (7) 2020-03-02 05:08:00 Justin Florencio Lai [facility] PROTHROMBIN TIME/INR 2020-03-02 05:08:00 [facility] W/[facility]T COUNT & AUTO 2020-03-02 05:08:00 Mckennajose meLty morrisjessee Lai WILIAM [facility] POCT-GLUCOSE METER 2020-03-01 23:01:00 Justin Florencio Lai [facility] APTT 2020-03-01 22:26:00 Mckennajose malexandraFlorencio [facility] APTT 2020-03-01 15:10:00 Mckennajose malexandra Florencio [facility] PT/APTT 2020-03-01 15:10:00 MckennaFlorencio fuentes [facility] HEMODIALYSIS INPATIENT 2020-03-01 12:40:00 Abena Squires [facility] BASIC METABOLIC PANEL (7) 2020-03-01 11:33:00 Florencio Ocampo [facility] BASIC METABOLIC PANEL (7) 2020-03-01 05:43:00 Florencio Ocampo [facility] PROTHROMBIN TIME/INR 2020-03-01 05:43:00 Florencio Ocampo [facility] APTT 2020-03-01 05:43:00 Florencio Ocampo [facility] CBC W/PLT COUNT & AUTO 2020-03-01 05:43:00 Florencio Ocamporamakrishna CH I [facility] APTT 2020-02-29 22:37:00 Florencio Ocamporamakrishna [facility] POCT-GLUCOSE METER 2020-02-29 22:19:00 Florencio Ocamporamakrishna [facility] POCT-GLUCOSE METER 2020-02-29 15:25:00 Florencio Ocampoliz [facility] APTT 2020-02-29 15:17:00 Florencio Ocampoliz [facility] POCT-GLUCOSE METER 2020-02-29 11:38:00 Florencio Ocampo [facility] APTT 2020-02-29 09:03:00 Florencio Ocampoliz [facility] PROTHROMBIN TIME/INR 2020-02-29 09:03:00 Mihai Estrella [facility] BASIC METABOLIC PANEL (7) 2020-02-29 00:51:00 Florencio Ocamporamakrishna [facility] APTT 2020-02-29 00:51:00 Florencio Ocampo [facility] CBC W/PLT COUNT & AUTO 2020-02-29 00:51:00 Florencio Ocamporamakrishna [facility] I [facility] POCT-GLUCOSE METER 2020-02-28 23:48:00 Florencio Ocampoliz [facility] APTT 2020-02-28 18:36:00 Florencio Ocampo ramakrishna [facility] POCT-GLUCOSE METER 2020-02-28 18:03:00 Justin Florencio Lai [facility] TRANSFUSION SERVICE 2020-02-28 18:00:[address] [facility] REPORT - SCAN Scanning [facility] APTT 2020-02-28 17:12:00 Justin Florencio Joelle [facility] POCT-GLUCOSE METER 2020-02-28 12:02:00 Justin Florencio ramakrishna [facility] APTT 2020-02-28 10:56:00 [facility] POCT-GLUCOSE METER 2020-02-28 06:38:00 Justin Florencio [facility] BASIC METABOLIC PANEL (7) 2020-02-28 04:31:00 Justin Florencio ramakrishna [facility] CBC W/PLT COUNT & AUTO 2020-02-28 04:31:00 Justin Florencio Lai [facility] I [facility] POCT-GLUCOSE METER 2020-02-28 02:14:00 Mckennajose malexandra [facility] FL FLUORO NON-SPECIFIC UP 2020-02-28 01:47:[address] [facility] TO 1 HOUR [facility] APTT 2020-02-27 19:46:00 Florencio Ocampo [facility] ORIF,FEMUR 2020-02-27 19:25:00 Sukumar Callejas [facility] PROCEDURE W/ C-ARM 2020-02-27 19:25:00 Sukumar Callejas [facility] HEMODIALYSIS INPATIENT 2020-02-27 18:35:06 Abena Squires [facility] POCT-GLUCOSE METER 2020-02-27 17:44:00 Justin Florencio [facility] IRON, TIBC, % SAT. 2020-02-27 15:19:[address] [facility] (WITHOUT FERRITIN) Medical Cente r FERRITIN 2020-02-27 15:19:00 Florencio Ocampo [facility] PLATELET COUNT 2020-02-27 12:30:00 Florencio Ocampo [facility] APTT 2020-02-27 12:30:00 [facility] POCT-GLUCOSE METER 2020-02-27 12:01:00 Florencio Ocampo [facility] HEPATITIS B SURFACE 2020-02-27 10:18:00 Abena Squires [facility] ANTIBODY IDENTIFICATION 2020-02-27 08:56:00 Florencio Ocampo [facility] XR WRIST 2 VIEWS LEFT 2020-02-27 08:49:00 Florencio Ocampo ramakrishna [facility] POTASSIUM 2020-02-27 07:53:00 Florencio Ocampo [facility] XR HIP 2 VIEWS LEFT 2020-02-27 07:02:00 Kay Peoples [facility] XR PELVIS 1 OR 2 VIEWS 2020-02-27 06:56:00 Kay Peoples [facility] POCT-GLUCOSE METER 2020-02-27 06:15:00 Florencio Ocampo [facility] SARS-COV2/RT-PCR ([facility] & 2020-02-27 01:52:[address] [facility] REF LABS) Medical [place] COMPREHENSIVE METABOLIC 2020-02-27 01:23:00 Caleb Martinez [facility] PROTHROMBIN TIME/INR 2020-02-27 01:23:00 Caleb Martinez [facility] MAGNESIUM 2020-02-27 01:23:00 Caleb Martinez [facility] PHOSPHORUS 2020-02-27 01:23:00 Caleb Martinez [facility] TYPE AND SCREEN, 2020-02-27 01:23:00 Caleb Martinez [facility] CBC W/PLT COUNT & AUTO 2020-02-27 01:23:00 Caleb Martinez [facility] CT ABDOMEN PELVIS WO 2019-09-12 20:46:00 Ty Nieves CONTRAST XR CHEST 2 VW 2019-09-12 20:44:31 Ty Nieves BLOOD CULTURE, AEROBIC & 2019-09-12 20:01:00 Ty Nieves ANAEROBIC INFLUENZA ANTIGEN 2019-09-12 19:43:00 Ty Nieves on [employer] BLOOD CULTURE, AEROBIC & 2019-09-12 19:43:00 Ty Nieves ANAEROBIC CBC WITH PLATELET AND 2019-09-12 19:43:00 Ty Nieves [place] [employer] DIFFERENTIAL LACTIC ACID, I-STAT 2019-09-12 19:43:00 Ty Nieves TROPONIN, I-STAT 2019-09-12 19:43:00 Ty Nieves VENOUS BLOOD GAS 2019-09-12 19:43:00 Ty Nieves ESTIMATED GFR 2019-09-12 19:43:00 Ty Nieves COMPREHENSIVE METABOLIC 2019-09-12 19:43:00 Ty Nieves PANEL BILIRUBIN DIRECT 2019-09-12 19:43:00 Ty Nieves [employer] MANUAL DIFFERENTIAL 2019-09-12 19:43:00 Ty Nieves ECG ED PRELIMINARY 2019-09-12 19:29:23 Ty Nieves INTERPRETATION ECG 12-LEAD 2019-09-12 19:25:17 Ty Nieves 0V7Q77M 2019-01-08 00:00:00 ENCPL 8U1G85U 2019-01-08 00:00:00 ENCPL 4Y9U04L 2019-01-08 00:00:00 ENCPL 6D9E17T 2019-01-08 00:00:00 ENCPL Plan of Care Planned Activity Planned Date Details Comments Source Future Scheduled 2023-03-[address] [facility] 00:[facility]00 (procedure) [code = Medical Center 22902681] Future Scheduled 2020-06-02 INFLUENZA VACCINE [place] [facility] Test 00:00:00 [code = INFLUENZA VACCINE] Future Scheduled 2020-05-03 INFLUENZA VACCINE (#1[facility] 00:00[facility]00 [code = INFLUENZA Medical Ce nter VACCINE (#1)] Future Scheduled 2020-01-[address] [facility] - Test 00:00:00 malignant [facility] colon (procedure) [code = 744750386] Future Scheduled 2019-06-[address] Khushbu kes - Test 00:00:00 measurement Medical Center (procedure) [code = 88301172] Future Scheduled 2018-08-[address] [...] Future Scheduled 2007-04-24 COLONOSCOPY SCREENING [place] [facility] Test 00:00:00 [code = COLONOSCOPY SCREENING] Future Scheduled 2007-04-24 SHINGLES VACCINES (#1) [place] [facility] Test 00:00:00 [code = SHINGLES VACCINES (#1)] Future Scheduled 1967-04-24 DIABETIC FOOT EXAM [place] [facility] Test 00:00:00 [code = DIABETIC FOOT EXAM] Future Scheduled 1967 DIABETIC EYE EXAM [facility] - Test 00:00:00 [code = DIABETIC EYE Medical Center EXAM] Future Scheduled [address] [facility] - Test 00:00:00 examination Medical Center (regime/therapy) [code = 939287459] Future Scheduled 1967 Urine screening [facility] - Test 00:00:00 protein (procedure) Medical Center [code = 894523891] Future Scheduled 1955 DIABETIC RETINAL EYE [place] [employer] Test 00:00:00 EXAM [code = DIABETIC RETINAL EYE EXAM] Encounters Start End Encounter Admission Attending Care Care Encounter Source Date/Time Date/Time Type Type Clinicians Facility Department ID 2019-11-09 2019-11-09 Outpatient [facility] [id number] [facility] 08:51:00 08:51:00 2019-09-12 2019-09-12 [place] [id number] [place] 00:00:00 00:00:00 TY [address] 2017-11-18 2017-11-20 Inpatient C NANGIA, [facility] [id number] [address] [facility] 13:43:00 13:54:00 [facility] 2017-11-07 2017-11-07 Emergency E [facility] [id number] [address] [facility] 20:22:00 20:22:00 [facility] 2017-10-06 2017-10-06 Emergency E ELIANA, [facility] [id number] [address] [facility] 14:25:00 14:25:00 [facility] Results Test Description Test Test Results Result Source Time Comments Comments ECG 12 lead 2020-04- Interface, External Ris [facility] In - 2020 8:10 [place] - 20:10:26 PM CDTVentricular Rate Me dical 86 BPMAtrial Rate 88 Cent er BPMQRS Duration 76 msQ-T Interval 382 msQTC Calculation(Bazett) 457 msR [place] 50 degreesT [place] [address] abnormalityAbnormal ECGWhen compared [...] Comme nts Troponin I (test code = 82928-1) 0.04 ng/mL 0-0.03 H ALVIN (test code [...] failure, acidosis, acute neurological disease, and persistent tachyarrhythmia.Chemical Laboratory Technician JOSE - AKSHAT Chapman Lab Interpretation (test code = Abnormal 08820-2) [facility] [id number] 23:28:00 Test Item Value Reference Range Interpretation [...] failure, acidosis, acute neurological disease, and persistent tachyarrhythmia.Chemical Laboratory Technician ID - PIJESSE LBasic Metabolic [id number] 23:26:00 Test Item Value Reference Range Interpretation Comments Sodium (test code = 137 meq/L 007-463 6119-2) Potassium (test code = 4.2 meq/L 3.5-5.1 2823-3) Chloride (test code = 94 meq/L 98-107 L 5-0) CO2 (test code = 34 meq/L 22-29 H 2027-9) BUN (test code = 21 mg/dL 7-21 3094-0) Creatinine (test code 4.95 mg/dL 0.57-1.25 H = 2160-0) Glucose (test code = 126 mg/dL 70-105 H 2345-7) Calcium (test code = 9.4 mg/dL 8.4-10.2 99420-3) EGFR (test code = 14 mL/min/1.73 [place] [address]-4) NOT ACCURATE CREATININE CLEARANCE IN PREDICTING GLOMERULAR FILTRATION RATE . ESTIMATED GFR I S NOT APPLICABLE FOR DIALYSIS PATIENTS. ALVIN (test code = ALVIN) Chemical Laboratory Technician ID - AKSHAT L Lab Interpretation Abnormal (test code = 82253-1) [facility] [id number] 23:26:00 Test Item Value Reference Range Interpretation [...] S NOT APPLICABLE FOR DIALYSIS PATIEN TS. Chemical Laboratory Technician ID - AKSHAT LB-type Natriuretic Factor (BNP)2020-04-21 23:25:00 Test Item Value Reference Range Interpretation Comments BNP (test code = 62245-7) 1507 pg/mL 0-100 H ALVIN (test code = ALVIN) Chemical Laboratory Technician ID - AKSHAT L Lab Interpretation (test Abnormal code = 79337-4) [facility] NATRIURETIC FACTOR (BNP)2020-04-21 23:25:00 Test Item Value Reference Range Interpretation Comments B-TYPE NATRIURETIC PEPTIDE 1507 pg/mL 0-100 H (BEAKER) (test code = 700) Chemical Laboratory Technician ID - AKSHAT LPT/[id number] 23:09:00 Test Item Value Reference Range Interpretation Comments Protime (test code = 25.1 11.9- 14.2 H 5902-2) seconds INR (test code = 2.34 <=5.90 6301-6) PTT (test code = 38.7 22.5- 36.0 H 56045-9) seconds ALVIN (test code = ALVIN) Effective 01/28/2019: PT Reference Range ChangeNew: 11.9-14.2 Previous: 11.7-14.7 RECOMMENDED COUMADIN/WARFARIN INR THERAPY RANGESSTANDARD DOSE: 2.0-3.0 Includes: PROPHYLAXIS for venous thrombosis, systemic embolization; TREATMENT for venous thrombosis and/or pulmonary embolus.HIGH RISK: Target INR is 2.5-3.5 for patients wiht mechanical heart valves. Lab Interpretation Abnormal (test code = 12155-9) [facility] Center[facility]/[id number] 23:09:00 Test Item Value Reference Range Interpretation [...] heart valves.CBC with platelet count + automated [id number] 22:49:00 Test Item Value Reference Range Interpretation [...] K/CU MM L MPV (test code = 55638-4) 9.0 fL 9.4-12.4 L nRBC (test code [...] 2801) Lab Interpretation (test code = Abnormal 45707-2) [facility] W/PLT COUNT & AUTO [id number] 22:49:00 Test Item Value Reference Range Interpretation [...] (test code = 2801) RAD, CHEST, 2 [id number] 22:26:00Reason for exam:->SHORTNESS OF BREATH FINAL REPORT [...] Verified Date/Time: 04/21/2020 22:26:38 XR chest 2 [id number] 22:26:00Interface, External Ris In - 04/21/2020 10:28 [...] Edenilson Gutierrez MDReport Verified Date/Time: 04/21/2020 22:26:[address] [facility]-Glucose [id number] 15:36:00 Test Item Value Reference Range Interpretation Comments POC-Glucose Meter (test 133 mg/dL 70-110 H : TE STED AT [facility] code = 1538) [address] [facility], 770 30: Chemical Laboratory Technician/Techni kush ID = [id number] for Eulalio Samson na Lab Interpretation (test Abnormal code = 50031-5) [facility] CenterPOCT-GLUCOSE [id number] 15:36:00 Test Item Value Reference Range Interpretation Comments POC-GLUCOSE METER 133 mg/dL 70-110 H : [facility] (BEAKER) (test code = [facility], 1538) [address]: Chemical Laboratory Technician/Techni kush ID = [id number] for Wi lliams, Areiona POCT-GLUCOSE [id number] 12:38:00 Test Item Value Reference Range Interpretation Comments POC-GLUCOSE METER 100 mg/dL 70-110 : [facility] (BEAKER) (test code = [facility], 1538) [address]: Chemical Laboratory Technician/Techni kush ID = [id number] for Wi lliams, Areiona HEMODIALYSIS [id number] 12:23:00Chu, Simeon Gallego RN 03/03/2020 12:24 PMHD x [...] Lab Results Component Value Date HEPBSAG Nonreactive 02/27/2020[facility] 09:28:00 Test Item Value Reference Range Interpretation Comments PTT (test code = 84529-4) 67.8 22.5- 36.0 seconds H Lab Interpretation (test code = Abnormal 82514-3) [facility]APTT2020-07-02 09:28:00 Test Item Value Reference Range Interpretation Comments PARTIAL THROMBOPLASTIN TIME 67.8 seconds 22.5-36.0 H (BEAKER) (test code = 760) [id number] 07:14:00 Test Item Value Reference Range Interpretation Comments PARTIAL THROMBOPLASTIN TIME 146.9 seconds 22.5-36.0 H (BEAKER) (test code = 760) CBC W/PLT COUNT & AUTO [id number] 05:40:00 Test Item Value Reference Range Interpretation [...] (BEAKER) (test code = 2801) BASIC METABOLIC [id number] 05:24:00 Test Item Value Reference Range Interpretation Comments SODIUM (BEAKER) 132 meq/L 136-145 L (test code = 381) POTASSIUM (BEAKER) 4.4 meq/L 3.5-5.1 (test code = 379) CHLORIDE (BEAKER) 92 meq/L 98-107 L (test code = 382) CO2 (BEAKER) (test 25 meq/L code = 355) BLOOD UREA NITROGEN 57 [...] S NOT APPLICABLE FOR DIALYSIS PATIEN TS. Chemical Laboratory Technician ID - LORENZO WDaily Prothrombin time/INR while on [id number] 04:52:00 Test Item Value Reference Range Interpretation [...] warfarin. Lab Interpretation Abnormal (test code = 49408-5) [facility] CenterPROTHROMBIN TIME/[id number] 04:52:00 Test Item Value Reference Range Interpretation [...] T [facility] 6720 (BEAKER) (test code = [facility], 1538) [address]: Chemical Laboratory Technician/Techni kush ID = [id number] for KATIA RAO [id number] 21:05:00 Test Item Value Reference Range Interpretation Comments PARTIAL THROMBOPLASTIN TIME 66.8 seconds 22.5-36.0 H (BEAKER) (test code = 760) [id number] 19:49:00 Test Item Value Reference Range Interpretation Comments PARTIAL THROMBOPLASTIN TIME > seconds 22.5-36.0 HH (BEAKER) (test code = 760) POCT-GLUCOSE [id number] 17:09:00 Test Item Value Reference Range Interpretation Comments POC-GLUCOSE METER 145 mg/dL 70-110 H : TESTED A T [facility] 6720 (BEAKER) (test code = [facility], 1538) [address]: Chemical Laboratory Technician/Techni kush ID = [id number] for Christina Chisholm POCT-GLUCOSE [id number] 12:10:00 Test Item Value Reference Range Interpretation Comments POC-GLUCOSE METER 113 mg/dL 70-110 H : TESTED A T [facility] 6720 (BEAKER) (test code = [facility], 1538) 18566: Chemical Laboratory Technician/Techni kush ID = [id number] for Ra griffithsgiovanniEugeniaia [id number] 11:50:00 Test Item Value Reference Range Interpretation Comments PARTIAL THROMBOPLASTIN TIME 96.6 seconds 22.5-36.0 H (BEAKER) (test code = 760) POCT-GLUCOSE [id number] 08:28:00 Test Item Value Reference Range Interpretation Comments POC-GLUCOSE METER 150 mg/dL 70-110 H : TESTED A T [facility] 6720 (BEAKER) (test code = [facility], 1538) 01078: Chemical Laboratory Technician/Techni kush ID = [id number] for Ra griffithsgiovanniEugeniaia BASIC METABOLIC [id number] 06:15:00 Test Item Value Reference Range Interpretation [...] S NOT APPLICABLE FOR DIALYSIS PATIEN TS. Chemical Laboratory Technician ID - BSCBC W/PLT COUNT & AUTO [id number] 06:12:00 Test Item Value Reference Range Interpretation [...] 0-1 PERCENT (BEAKER) (test code = 2801) [id number] 05:43:00 Test Item Value Reference Range Interpretation Comments PARTIAL THROMBOPLASTIN TIME 61.8 seconds 22.5-36.0 H (BEAKER) (test code = 760) PROTHROMBIN TIME/[id number] 05:42:00 Test Item Value Reference Range Interpretation [...] mg/dL 70-110 H : TESTED A T [facility] 6720 (BEZOILA) (test code = [place], 1538) 54335: Chemical Laboratory Technician/Techni kush ID = [id number] for AN BENITA ERNANDEZ [id number] 22:49:00 Test Item Value Reference Range Interpretation Comments PARTIAL THROMBOPLASTIN TIME 86.0 seconds 22.5-36.0 H (BEAKER) (test code = 760) PT/[id number] 15:29:00 Test Item Value Reference Range Interpretation [...] INR is2.5-3.5 for patients wiht mechanical heart valves.[id number] 15:29:00 Test Item Value Reference Range Interpretation Comments PARTIAL THROMBOPLASTIN TIME 90.0 seconds 22.5-36.0 H (JARROD) (test code = 760) HEMODIALYSIS [id number] 12:40:00Maria Isabel Kelly RN 03/01/2020 2:57 PMProcedure [...] BP: 112/78 Pulse: 97 Resp: Temp: SpO2:98%[facility] Center[facility]OL[facility] [id number] 12:20:00 Test Item Value Reference Range Interpretation [...] S NOT APPLICABLE FOR DIALYSIS PATIEN TS. Chemical Laboratory Technician ID - ELIZABETH FCBC W/PLT COUNT & AUTO [id number] 07:29:00 Test Item Value Reference Range Interpretation [...] 0-1 PERCENT (BEAKER) (test code = 2801) [id number] 07:20:00 Test Item Value Reference Range Interpretation Comments PARTIAL THROMBOPLASTIN TIME 61.2 seconds 22.5-36.0 H (BEAKER) (test code = 760) While on warfarin.BASIC METABOLIC [id number] 07:06:00 Test Item Value Reference Range Interpretation [...] S NOT APPLICABLE FOR DIALYSIS PATIEN TS. Chemical Laboratory Technician ID - ATNONIA FPROTHROMBIN TIME/[id number] 06:37:00 Test Item Value Reference Range Interpretation [...] for patients wiht mechanical heart valves.While on warfarin.[id number] 23:03:00 Test Item Value Reference Range Interpretation Comments PARTIAL THROMBOPLASTIN TIME 54.4 seconds 22.5-36.0 H (BEAKER) (test code = 760) POCT-GLUCOSE [id number] 22:30:00 Test Item Value Reference Range Interpretation Comments POC-GLUCOSE METER 96 mg/dL 70-110 : [facility] ([facility]ER[facility] (test code = [facility] [place], 1538) 65648: Chemical Laboratory Technician/Techni kush ID = [id number] for BENITA MASSEY POCT-GLUCOSE [id number] 15:59:00 Test Item Value Reference Range Interpretation Comments POC-GLUCOSE METER 133 mg/dL 70-110 H : TESTED A T [facility] 6720 (BEWatson Brown) (test code = [facility] [place], 1538) 60776: Chemical Laboratory Technician/Techni kush ID = [id number] for Phyllis Rao [id number] 15:38:00 Test Item Value Reference Range Interpretation Comments PARTIAL THROMBOPLASTIN TIME 88.8 seconds 22.5-36.0 H (BEAKER) (test code = 760) POCT-GLUCOSE [id number] 12:08:00 Test Item Value Reference Range Interpretation Comments POC-GLUCOSE METER 130 mg/dL 70-110 H : TESTED A T [facility] 6720 (BEWatson Brown) (test code = [facility], 1538) 71069: Chemical Laboratory Technician/Techni kush ID = [id number] for Phyllis Rao PROTHROMBIN TIME/[id number] 11:48:00 Test Item Value Reference Range Interpretation [...] INR is2.5-3.5 for patients wiht mechanical heart valves.[id number] 09:34:00 Test Item Value Reference Range Interpretation Comments PARTIAL THROMBOPLASTIN TIME 74.6 seconds 22.5-36.0 H (BEAKER) (test code = 760) CBC W/PLT COUNT & AUTO [id number] 01:34:00 Test Item Value Reference Range Interpretation [...] (BEAKER) (test code = 2801) BASIC METABOLIC [id number] 01:29:00 Test Item Value Reference Range Interpretation [...] S NOT APPLICABLE FOR DIALYSIS PATIEN TS. Chemical Laboratory Technician ID - PIAYA [id number] 01:13:00 Test Item Value Reference Range Interpretation Comments PARTIAL THROMBOPLASTIN TIME 56.4 seconds 22.5-36.0 H (BEAKER) (test code = 760) POCT-GLUCOSE [id number] 23:59:00 Test Item Value Reference Range Interpretation Comments POC-GLUCOSE METER 134 mg/dL 70-110 H : TESTED A T [facility] 6720 (BEAKER) (test code = [facility], 153) 26675: Chemical Laboratory Technician/Techni kush ID = [id number] for SIMEON OSEISCOOTER [id number] 18:52:00 Test Item Value Reference Range Interpretation Comments PARTIAL THROMBOPLASTIN TIME 47.3 seconds 22.5-36.0 H (BEAKER) (test code = 760) [id number] 18:18:00 Test Item Value Reference Range Interpretation Comments PARTIAL THROMBOPLASTIN TIME > seconds 22.5-36.0 HH (BEAKER) (test code = 760) POCT-GLUCOSE [id number] 18:15:00 Test Item Value Reference Range Interpretation Comments POC-GLUCOSE METER 143 mg/dL 70-110 H : TESTED A T [facility] 6720 (BEAKER) (test code = [facility], 153) 76506: Chemical Laboratory Technician/Techni kush ID = [id number] for RANDI WESLEY POCT-GLUCOSE [id number] 12:15:00 Test Item Value Reference Range Interpretation Comments POC-GLUCOSE METER 123 mg/dL 70-110 H : TESTED A T [facility] 6720 (BEAKER) (test code = [facility], 1538) 32873: Chemical Laboratory Technician/Techni kush ID = [id number] for RANDI WESLEY [id number] 11:28:00 Test Item Value Reference Range Interpretation Comments PARTIAL THROMBOPLASTIN TIME 57.3 seconds 22.5-36.0 H (BEAKER) (test code = 760) POCT-GLUCOSE [id number] 06:49:00 Test Item Value Reference Range Interpretation Comments POC-GLUCOSE METER 86 mg/dL 70-110 : TESTED A T [facility] 6720 (BEAKER) (test code = [facility], 1538) 34028: Chemical Laboratory Technician/Techni kush ID = [id number] for BRITNEY BRISAALEJANDROSCOOTER BASIC METABOLIC [id number] 06:19:00 Test Item Value Reference Range Interpretation [...] S NOT APPLICABLE FOR DIALYSIS PATIEN TS. Chemical Laboratory Technician ID - PIAYA LCBC W/PLT COUNT & AUTO [id number] 04:57:00 Test Item Value Reference Range Interpretation [...] % 0-1 PERCENT (BEAKER) (test code = 0501) POCT-GLUCOSE [id number] 02:25:00 Test Item Value Reference Range Interpretation Comments POC-GLUCOSE METER 69 mg/dL 70-110 L : TESTED A T [facility] 6720 (JARROD) (test code = [facility] [place], 1538) 89406: Chemical Laboratory Technician/Techni kush ID = [id number] for RADHA PEREZ FL, FLUORO, NON-SPECIFIC, UP TO 1 [id number] 01:47:00Reason for exam:- >orif right femurFluoroscopic unit utilized for a procedure performed in the OR. No interpretation was requested. Refer to the operative report for findings. Refer to PACS for patient radiation dose information.FL fluoro non- specific up to 1 [id number] 01:47:00Interface, External Ris In - 02/28/2020 1:50 AM CDTFluoroscopic unit utilized for a procedure performed in the OR. No interpretation was requested. Refer to the operative report for findings. Referto PACS for patient radiation dose information.[facility] CenterAPTT2020-06-27 20:21:00 Test Item Value Reference Range Interpretation Comments PARTIAL THROMBOPLASTIN TIME 41.1 seconds 22.5-36.0 H (JARROD) (test code = 760) 6 hours after starting heparin infusion and as indicated per sliding scale HEMODIALYSIS [id number] 18:35:06Alma Delia Rachel RN 02/27/2020 6:35 PMLab [...] Patient tolerated procedure well. Alma Delia Rachel RNLompoc Valley Medical CenterPOCT-GLUCOSE [id number] 17:57:00 Test Item Value Reference Range Interpretation Comments POC-GLUCOSE METER 82 mg/dL 70-110 : TESTED A T [facility] 6720 (BEAKER) (test code = [facility] [place] [place], 1538) 31620: Chemical Laboratory Technician/Techni kush ID = [id number] for ALMA DELIA PATHAK [id number] 17:14:00 Test Item Value Reference Range Interpretation Comments Ferritin (test code = 5182.19 ng/mL 5-275 H 2276-4) ALVIN (test code = ALVIN) Chemical Laboratory Technician ID Patel [place] Lab Interpretation (test Abnormal code = 02228-9) [facility] CenterFERRITIN2020-06-27 17:14:00 Test Item Value Reference Range Interpretation Comments FERRITIN (BEAKER) (test code = 5182.19 ng/mL 5.00-275.00 H 361) Chemical Laboratory Technician ID - JOEL Kim, TIBC, % sat. (without ferritin)2020-02-27 16:01:00 Test Item Value Reference Range Interpretation Comments Iron (test code = 2498-4) 125.0 ug/dL 40-160 TIBC (test code = 2500-7) 219 ug/dL 250-450 L Iron % Saturation (test 57 % 20-55 H code = 2502-3) ALVIN (test code = ALVIN) Chemical Laboratory Technician ID Patel [place] Lab Interpretation (test Abnormal code = 27487-6) [facility] CenterIRON, TIBC, % SAT. (WITHOUT FERRITIN)2020-02-27 16:01:00 Test Item Value Reference Range Interpretation Comments IRON (BEAKER) (test code = 547) 125.0 ug/dL 40.0-160.0 TOTAL IRON BINDING CAPACITY 219 ug/dL 250-450 L (BEAKER) (test code = 769) IRON % SATURATION (2) (BEAKER) 57 % 20-55 H (test code = 2590) Chemical Laboratory Technician ID Patel MALDONADO [id number] 12:54:00 Test Item Value Reference Range Interpretation Comments PARTIAL THROMBOPLASTIN TIME 41.5 seconds 22.5-36.0 H (BEAKER) (test code = 760) Prior to initiating heparinPlatelet [id number] 12:51:00 Test Item Value Reference Range Interpretation Comments Platelets (test code = 116 150- 450 K/CU MM L 777-3) ALVIN (test code = ALVIN) Chemical Laboratory Technician ID - [id number] clot Lab Interpretation (test Abnormal code = 69552-2) [facility] CenterPLATELET [id number] 12:51:00 Test Item Value Reference Range Interpretation Comments PLATELET COUNT (BEAKER) (test 116 K/CU MM 150-450 L code = 756) Chemical Laboratory Technician ID - [id number] clotSARS-CoV2/RT-PCR (Asymptomatic ONLY)2020-02-27 12:46:00 Test Item Value Reference Range Interpretation Comments SARS-COV2/RT-PCR Negative Not Detected, (test code = Negative 90492-8) SARS-COV-2 [facility] PERFORMING LAB (test code = 92024-5) ALVIN (test code = Negative result for [...] of the Act. Fact Sheet for Healthcare Providers:https://www.[employer]/sites/default/f mio/product/documents/F act_Sheet_HC_Providers_L vyt_NURF-QvA-7.pdf Fact Sheet for Healthcare Patients:https://www.[employer]/sites/default/fi les/product/documents/Fa ct_Sheet_Patients_Lyra_S ARS-CoV-2.pdf Performing Laboratory:[facility], [place] [address] [place], [place] [address]ARS-COV2/RT-PCR ([facility])2020-02-27 12:46:00 Test Item Value Reference Range Interpretation Comments SARS-COV2/RT-PCR (test code = Negative Not Detected, Negative 2840114) SARS-COV-[address] [facility] (test code = 8089633) Negative result for this test determines that [...] 564(g) of the Act.Fact Sheet for Healthcare Providers:https://www.[employer]/sites/default/files/product/documents/Fact_Shee n_GS_Pkamvtuaj_Cutt_TQBB-AuE-5.pdfFact Sheet for Healthcare Patients:https://www.[employer]/sites/default/files/product/ documents/Uroh_Hyngn_Nwtclnuf_Nckb_BKGW-MdA-2.pdfPerforming Laboratory:[facility], [place] [address]OWFX-CMVUQEQ METER 2020-02-27 12:12:00 Test Item Value Reference Range Interpretation Comments POC-GLUCOSE METER 90 mg/dL 70-110 : TESTED A T [facility] 6720 (BEAKER) (test code = [facility], 1538) 05303: Chemical Laboratory Technician/Techni kush ID = [id number] for ANTONIO ABENA YI Hepatitis B surface [id number] 11:32:00 Test Item Value Reference Range Interpretation Comments HBsAg Screen (test code Nonreactive Nonreactive = 5195-3) ALVIN (test code = ALVIN) Specimen is considered negative for HBsAg. Lab Interpretation (test Normal code = 32936-0) [facility] CenterHEPATITIS B SURFACE [id number] 11:32:00 Test Item Value Reference Range Interpretation Comments HEPATITIS B SURFACE ANTIGEN (2) Nonreactive Nonreactive (BEAKER) (test code = 2585) Specimen is considered negative for HBsAg.RAD, WRIST, 2 VIEWS, [id number] 09:19:00Reason for exam:->fall, immbolityFINAL REPORT TECHNIQUE: Frontal, oblique, and lateral views of the left wrist. INDICATION: Fall immobility. COMPARISON: None. FINDINGS:No acute fractures or dislocations.Joint spaces are within normal limits.There are atherosclerotic calcifications of the vessels. Surgical clipsproject over the distal radius.. IMPRESSION:No acute osseous abnormality. Signed: Bhavin Artis MDRglen Verified Date/Time: 02/27/2020 09:19:08 Reading Location: [facility] C013 CT Body ReadingRoom XR wrist 2 views [id number] 09:19:00Interface, External Ris In - 02/27/2020 9:21 AM CDTFINAL REPORT TECHNIQUE: Frontal, oblique, and lateral views of the left wrist. INDICATION: Fall immobility. COMPARISON: None. FINDINGS:No acute fractures or dislocations.Joint spaces are within normal limits.There are atherosclerotic calcifications of the vessels. Surgical clips project over the distal radius.. IMPRESSION:No acute osseous abnormality. Signed: Bhavin Artis Verified Date/Time: 02/27/2020 09:19:08 Reading Location: [facility] C013Y CT Body Reading Room [facility] CenterAntibody [id number] 08:56:00 Test Item Value Reference Range Interpretation Comments ANTIBODY ID (BEAKER) UNID IgG (test code = 2253) Antibody Consult SIGNED OUT An IgG anti body of (test code = 2479) undetermi christian specificity is detected, trans fuse crossmatch comp atible RBCs.Electronic Signature: Rosendogenia Shirley M.D. [facility] CenterPotassium2020-06-27 08:30:00 Test Item Value Reference Range Interpretation Comments Potassium (test code = 5.0 meq/L 3.5-5.1 2823-3) ALVIN (test code = ALVIN) Chemical Laboratory Technician ID - AKSHAT L Lab Interpretation (test Normal code = 66531-7) [facility] CenterPOTASSIUM2020-06-27 08:30:00 Test Item Value Reference Range Interpretation Comments POTASSIUM (BEAKER) (test code = 5.0 meq/L 3.5-5.1 379) Chemical Laboratory Technician ID - AKSHAT LType and screen, frrblsqyw3887-34-83 08:01:00 Test Item Value Reference Range Interpretation Comments ABO/RH AUTOMATED (BEAKER) (test AB POSITIVE code = 2260) Ab Scrn (test code = 890-4) POSITIVE ECHO 2 [facility] CenterRAD, PELVIS, 1 OR 2 [id number] 07:23:00Reason for exam:->femoral neck fxFINAL REPORT RAD, [...] Lisa Verified Date/Time: 02/27/2020 07:23:52 Reading Location: [address] Neuro Reading Room RAD, HIP, 2 VIEWS, [id number] 07:23:00Reason for exam:- >femoral neck fractureFINAL REPORT [...] Lisa Verified Date/Time: 02/27/2020 07:23:52 Reading Location: [address] Neuro Reading Room XR hip 2 views [id number] 07:23:00Interface, External Ris In - 02/27/2020 7:26 [...] Radha Lisa VerifiedDate/Time: 02/27/2020 07:23:52 Reading Location: [address] Neuro Reading Room [facility] CenterXR pelvis 1 or 2 [id number] 07:23:00Interface, External Ris In - 02/27/2020 7:26 [...] Radha Lisa VerifiedDate/Time: 02/27/2020 07:23:52 Reading Location: [address] Neuro Reading Room [facility] POCT-GLUCOSE [id number] 06:26:00 Test Item Value Reference Range Interpretation Comments POC-GLUCOSE METER 72 mg/dL 70-110 : TESTED A T [facility] 6720 [facility] (test code = [facility], 1538) 88788: Chemical Laboratory Technician/Techni kush ID = [id number] for SIMEONPASHA SCOOTER ESPINAL Comprehensive metabolic [id number] 02:44:00 Test Item Value Reference Range Interpretation Comments Protein, Total (test 9.6 6.0- 8.3 gm/dL H code = 2885-2) Albumin (test code = 4.3 g/dL 3.5-5 41547-6) Alkaline Phosphatase 85 U/L 40-150 (test code = 6768-6) Total Bilirubin (test 1.1 mg/dL 0.2-1.2 code = 1975-2) Sodium (test code = 132 meq/L 136-145 L 2951-2) Potassium (test code = 5.9 meq/L 3.5-5.1 H 2823-3) Chloride (test code = 91 meq/L 98-107 L 5-0) CO2 (test code = 24 meq/L 22-29 2027-9) BUN (test code = 58 mg/dL 7-21 H 3094-0) Creatinine (test code 8.80 mg/dL 0.57-1.25 H = 2160-0) Glucose (test code = 99 mg/dL 70-105 2345-7) Calcium (test code = 9.2 mg/dL 8.4-10.2 34533-3) AST (test code = 44 U/L 5-34 H 1920-8) ALT (test code = 36 U/L 6-55 1742-6) EGFR (test code = 7 mL/min/1.73 [place] [address]-2) NOT ACCURATE CREATININE CLEARANCE IN PREDICTING GLOMERULAR FILTRATION RATE . ESTIMATED GFR I S NOT APPLICABLE FOR DIALYSIS PATIENTS. ALVIN (test code = ALVIN) Chemical Laboratory Technician ID - PIAYA L Lab Interpretation Abnormal (test code = 28120-4) [facility] CenterCOMPREHENSIVE METABOLIC [id number] 02:44:00 Test Item Value Reference Range Interpretation [...] -29 code = 355) BLOOD UREA NITROGEN 58 [...] S NOT APPLICABLE FOR DIALYSIS PATIEN TS. Chemical Laboratory Technician ID - PIAYA LPROTHROMBIN TIME/[id number] 02:03:00 Test Item Value Reference Range Interpretation [...] INR is2.5-3.5 for patients wiht mechanical heart valves.Qqkwbjtws0778-17-10 01:56:00 Test Item Value Reference Range Interpretation Comments Magnesium (test code = 1.9 mg/dL 1.6-2.6 80186-9) ALVIN (test code = ALVIN) Chemical Laboratory Technician ID - PIAYA L Lab Interpretation (test Normal code = 17628-8) [facility] CenterPhosphorus2020-06-27 01:56:00 Test Item Value Reference Range Interpretation Comments Phosphorus (test code = 7.3 mg/dL 2.3-4.7 H 2777-1) ALVIN (test code = ALVIN) Chemical Laboratory Technician ID - PIAYA L Lab Interpretation (test Abnormal code = 44734-7) [facility] CenterPHOSPHORUS2020-06-27 01:56:00 Test Item Value Reference Range Interpretation Comments PHOSPHORUS (BEAKER) (test code = 7.3 mg/dL 2.3-4.7 H 604) Chemical Laboratory Technician ID - AKSHAT RPHOPKIPAH1579-07-08 01:56:00 Test Item Value Reference Range Interpretation Comments MAGNESIUM (BEAKER) (test code = 1.9 mg/dL 1.6-2.6 627) Chemical Laboratory Technician ID Patel ODEN LCBC W/PLT COUNT & AUTO [id number] 01:33:00 Test Item Value Reference Range Interpretation [...] code = 2801) Blood culture, aerobic & qsggtukxx4367-14-28 01:33:06 Test Item Value Reference Range Interpretation Comments Blood culture No growth Specimen isolate (test after 5 days InformationSpe cimen code = 600-7) of Source: BloodS pecimen incubation. Site: Hand, rig ht [facility] [id number] 21:54:59 Test Item Value Reference Range Interpretation Comments Ventricular rate (test 96 code = 253) Atrial rate (test code 96 = 255) MT interval (test code 182 = 266) QRSD [...] of 16-FEB-2015 10:01,-No significant change was found- [facility] with platelet and ysoerrifiwuz5017-80-49 06:24:24 Test Item Value Reference Range Interpretation Comments WBC (test code = 53769-9) 6.31 4.50- 11.00 k/uL RBC (test code = 64030-2) 3.41 m/uL 4.4-6 L HGB (test code = 718-7) 11.3 g/dL 14-18 L HCT (test code = 4544-3) 33.9 % 41-51 L MCV (test code = 787-2) 99.4 fL 82-100 MCH (test code = 785-6) 33.1 pg 27-34 MCHC (test code = 786-4) 33.3 g/dL 31-37 RDW - SD (test code = 82639-4) 45.9 fL 37-55 MPV (test code = 19214-6) 8.0 fL 8.8-13.2 L Platelet count (test code = 133 150- 400 k/uL L 55390-6) Neutrophils (test code = 10245-8) 69.0 % 39-69 Lymphocytes (test code = 07438-2) 17.0 % 25-45 L Monocytes (test code = 78445-9) 14.0 % 0-10 H Eosinophils (test code = 82680-9) 0.0 % 0-5 Basophils (test code = 40080-6) 0.0 % 0-1 Lab Interpretation (test code = Abnormal 35962-7) López MethodistManual qwnbiraiguzg0962-69-60 04:04:40 Test Item Value Reference Range Interpretation Comments Manual differential (test code = PERFORMED 60322-4) Neutrophils (test code = 69.0 % 39-69 32341-5) Lymphocytes (test code = 17.0 % 25-45 L 56078-0) Monocytes (test code = 31561-7) 14.0 % 0-10 H Eosinophils (test code = 0.0 % 0-5 49338-9) Basophils (test code = 40135-8) 0.0 % 0-1 Metamyelocytes (test code = 0 % 740-1) Promyelocytes (test code = 0 % 783-1) Platelet slide review (test code Cayla slt decr = 39329-2) Anisocytosis (test code = 702-1) Moderate Polychromasia (test code = Moderate 17516-8) Spherocytes (test code = 802-9) Occasional Ovalocytes (test code = 774-0) Moderate Lab Interpretation (test code = Abnormal 58943-8) [facility] MethodistComprehensive metabolic [id number] 21:52:24 Test Item Value Reference Range Interpretation Comments Sodium (test code = 2951-2) 135 128- 145 mEq/L Potassium (test code = 2823-3) 4.9 3.6- 5.1 mEq/L CO2 (test code = 2027-) 30 18- 33 mEq/L Chloride (test code = 2075-0) 91 98- 108 mEq/L L Glucose (test code = 2345-7) 94 mg/dL 73-118 Calcium (test code = 43777-1) 9.1 mg/dL 8-10.3 BUN (test code = [...] 6.4-8.1 H Anion gap (test code = 54295-5) 14@ANIO 7- 15 mEq/L A/G ratio (test code = 1759-0) 0.8 0.7-3.8 Lab Interpretation (test code = Abnormal 72560-2) Rene MethodistBilirubin vuesyd2002-07-60 21:52:24 Test Item Value Reference Range Interpretation Comments Bilirubin direct (test code = 0.3 mg/dL 0-0.3 1968-03) Rene MethodistEstimated [id number] 21:52:24 Test Item Value Reference Range Interpretation Comments Estimated GFR (test 12 mL/min/1.73 m2 A Monieerg ory Units code = 5488) InterpretationG 1 >=90 Jazmine l or highG2 60-89 Mildly decrease dG3a 45-59 Mil dly to moderately decr havcjI8x 30-44 Moderately to s everely decreasedG4 15-29 Severe ly decreasedG5 <15 Kidney blanco lureThe eGFR was calcul ated using the Chron ic Kidney Disease Epidemiology Collaboration ( CKD-EPI) equation. Interpretation is based on recommendati ons of the National [facility]-Kidn ey Disease Outcome s Quality Initiat samreen (NKF-KDOQI) pub lished in 2013. Lab Interpretation Abnormal (test code = 87004-0) López MethodistCT Abdomen Pelvis Wo [id number] 20:53:43Hm Interface, Radiology Results 09/12/2019 8:56 PM [...] intestinal obstruction or evidence of inflammation.Rene Anderson, L-Dsbj3112-22Aulf1895-87-48 20:46:29 Test Item Value Reference Range Interpretation [...] quired to rule out acute myocardial injury. [facility] MethodistXR Chest 2 Qo2829-06-64 20:46:25Hm Interface, Radiology Results - 09/12/2019 8:49 PM CSTEXAMINATION: XR CHEST 2 VWCLINICAL HISTORY: sobCOMPARISON: NoneIMPRESSION:Status post median sternotomy and valvular surgery. Atrial clip present. There is mild cardiomegaly. There is mild central vascular congestion. There is small right pleural effusion with volume loss in the right base. Lungs are otherwise clear. There is no pneumothorax. Visualized osseous structures are intact. [facility]-5IO2392A19Ixfhjhr MethodistVenous blood gas 2019-09-12 20:39:32 Test Item [...] (test 32.9 mmol/L 21-28 H code = 45830-6) O2 saturation, venous, POC (test 68 % 40-70 code = 2711-0) Lab Interpretation (test code = Abnormal 16182-2) Mccall MethodistLactic acid, R-Vzxp4461-10Rswl5728-01-18 20:37:11 Test Item Value Reference Range Interpretation Comments Lactic acid, I-Stat (test code = 2.0 mmol/L 0.5-2.2 45530-1) [facility] MethodistInfluenza uqlwpkp3277-41-91 20:05:58 Test Item Value Reference Range Interpretation Comments Influenza Flue B: Specimen antigen (test positive InformationSpe cimen code = 1604) Flue A: Source: NaresSp ecimen negative Site: Left [facility] ED Preliminary Interpretation - Not an [id number] 19:29:23Ty Nieves MD 09/13/2019 6:41 [facility] ED Preliminary Interpretation - Not an OrderPerformed by: Ty Nieves MDAuthorized by: Ty Nieves MD ECG reviewed by ED Physician in the absence of a hard rock miner: yes Interpretation: Interpretation: non-specific Rate: ECG r ate: 96 ECG rate assessment: normal Rhythm: Rhythm: sinus rhythm Ectopy: Ectopy: none QRS: QRS axis: NormalConduction: Conduction: normal ST segments: ST segments: NormalT waves: T waves: peaked Peaked: V3, V4, V5, V6, II, III and aVFHouston MethodistAFB CULTURE + [id number] 07:33:00 Test Item Value Reference Range Interpretation Comments CULTURE [facility] (test No acid-fast bacilli code = 1095) isolated in 42 days AFB SMEAR ([facility]) No acid fast bacilli (test code = 994) seen FUNGUS CULTURE + [id number] 17:26:00 Test Item Value Reference Range Interpretation Comments CULTURE ([facility]) (test No fungus isolated in code = 1095) 28 days FUNGUS SMEAR ([facility]) No fungi seen (test code = 1406) POCT-GLUCOSE [id number] 13:35:00 Test Item Value Reference Range Interpretation Comments POC-GLUCOSE METER 116 mg/dL 70-[address] [facility] 6720 ([facility]) (test code = [facility] 1538) [address] POCT-GLUCOSE [id number] 08:54:00 Test Item Value Reference Range Interpretation Comments POC-GLUCOSE METER 99 mg/dL 70-[address] [facility] 6720 ([facility]) (test [facility] = [facility] [address] 1538) [id number] 06:34:00 Test Item Value Reference Range Interpretation Comments PARTIAL THROMBOPLASTIN TIME 46.7 seconds 22.5-36.0 H ([facility]) (test code = 760) While on warfarin.PROTHROMBIN [id number] 06:33:00 Test Item Value Reference Range Interpretation Comments PROTIME ([facility]) (test code = 26.5 seconds 11.7-14.7 H [...] CORPUSCULAR HEMOGLOBIN CONC 30.8 GM/DL 32.3-36.5 L ([facility]) (test code = 752) RED CELL DISTRIBUTION WIDTH 17.9 % 11.6-14.4 H ([facility]) (test code = 412) PLATELET COUNT ([facility]) (test 148 K/CU MM 150-450 L code = 756) MEAN PLATELET VOLUME ([facility]) 9.2 fL 9.4-12.4 L (test code = 754) NUCLEATED RED BLOOD CELLS 1 /100 WBC 0-0 H ([facility]) (test code = 413) POCT-GLUCOSE [id number] 21:38:00 Test Item Value Reference Range Interpretation Comments POC-GLUCOSE METER 192 mg/dL 70-110 H TESTED AT [place] [address] ([facility]) (test code = [facility] 1538) [address] POCT-GLUCOSE [id number] 13:01:00 Test Item Value Reference Range Interpretation Comments POC-GLUCOSE METER 200 mg/dL 70-110 H TESTED AT [place] [address] ([facility]) (test code = [facility] 1538) [address] POCT-GLUCOSE [id number] 08:00:00 Test Item Value Reference Range Interpretation Comments POC-GLUCOSE METER 123 mg/dL 70-110 H TESTED AT [place] [address] ([facility]) (test code = [facility] 1538) [address] [id number] 06:40:00 Test Item Value Reference Range Interpretation Comments PARTIAL THROMBOPLASTIN TIME 83.1 seconds 22.5-36.0 H ([facility]) (test code = 760) [id number] 05:54:00 Test Item Value Reference Range Interpretation Comments PARTIAL THROMBOPLASTIN TIME > seconds 22.5-36.0 HH ([facility]) (test code = 760) PROTHROMBIN [id number] 05:30:00 Test Item Value Reference Range Interpretation Comments PROTIME ([facility]) (test code = 24.1 seconds 11.7-14.7 H 759) INR ([facility]) (test code = 370) 2.3 <=5.9 RECOMMENDED [...] ([facility]AK[facility]) (test code = 413) BASIC METABOLIC [id number] 05:10:00 Test Item Value Reference Range Interpretation [...] 358) GLUCOSE RANDOM 185 mg/dL 70-105 H ([facility]) (test code = 652) CALCIUM (AKER) 9.3 mg/dL 8.4-10.2 (test code = 697) EGFR ([facility]) (test 15 mL/min/1.73 ESTIMA JAYLA GFR IS code = 1092) sq m NOT ACCURATE CREATININE CLEARANCE IN PREDICTING GLOMERULAR FILTRATION RATE . ESTIMATED GFR I S NOT APPLICABLE FOR DIALYSIS PATIEN TS. OCCULT BLOOD, [id number] 23:46:00 Test Item Value Reference Range Interpretation Comments FECAL OCCULT BLOOD ([facility]) (test Negative Negative code = 618) POCT-GLUCOSE [id number] 22:52:00 Test Item Value Reference Range Interpretation Comments POC-GLUCOSE METER 192 mg/dL 70-110 H TESTED AT [place] [address] ([facility]) (test code = [facility] 1538) [address] POCT-GLUCOSE [id number] 17:11:00 Test Item Value Reference Range Interpretation Comments POC-GLUCOSE METER 149 mg/dL 70-110 H TESTED AT [place] [address] ([facility]) (test code = [facility] 1538) [address] PROTHROMBIN [id number] 13:00:00 Test Item Value Reference Range Interpretation Comments PROTIME ([facility]) (test code = 19.9 seconds 11.7-14.7 H 759) INR ([facility]) (test code = 370) 1.8 <=5.9 RECOMMENDED COUMADIN/WARFARIN INR THERAPY RANGESSTANDARD DOSE: 2.0 - 3.0 Includes: PROPHYLAXIS forvenous thrombosis, systemic embolization; TREATMENT for venous thrombosis and/or pulmonary embolus.HIGH RISK: Target INR is 2.5-3.5 for patients with mechanical heart valves.While on warfarin.POCT-GLUCOSE METER 2019-01-04 12:14:00 Test Item Value Reference Range Interpretation Comments POC-GLUCOSE METER 134 mg/dL 70-110 H TESTED AT [place] [address] ([facility]) (test code = [facility] 1538) [address] RAD, CHEST, 1 VIEW, NON [id number] 08:02:00Reason for exam:->Post opShould this be performed [...] MDReport Verified Date/Time: 01/04/2019 08:02:18 Reading Location: [facility] B1 C013W Consult Reading Room Electronicallysigned by: EDENILSON BLOOM M.D. on 01/04/2019 08:02 AMPOCT-GLUCOSE [id number] 07:42:00 Test Item Value Reference Range Interpretation Comments POC-GLUCOSE METER 98 mg/dL 70-[address] [facility] 6720 ([facility]) (test [facility] = [facility] [address] 1538) BASIC METABOLIC [id number] 07:28:00 Test Item Value Reference Range Interpretation [...] 0-0 H ([facility]) (test code = 413) [id number] 06:08:00 Test Item Value Reference Range Interpretation Comments PARTIAL THROMBOPLASTIN TIME 70.6 seconds 22.5-36.0 H ([facility]) (test code = 760) [id number] 23:32:00 Test Item Value Reference Range Interpretation Comments PARTIAL THROMBOPLASTIN TIME 77.2 seconds 22.5-36.0 H ([facility]) (test code = 760) POCT-GLUCOSE [id number] 21:55:00 Test Item Value Reference Range Interpretation Comments POC-GLUCOSE METER 150 mg/dL 70-[address] [facility] 6720 ([facility]) (test code = [facility] [place] 1538) [address] [id number] 18:25:00 Test Item Value Reference Range Interpretation Comments PARTIAL THROMBOPLASTIN TIME 71.2 seconds 22.5-36.0 H ([facility]) (test code = 760) POCT-GLUCOSE [id number] 13:45:00 Test Item Value Reference Range Interpretation Comments POC-GLUCOSE METER 375 mg/dL 70-110 H Notified Humberto Yeager MD/TESTED ([facility]) (test code = AT [facility] 6720 JOSE ANTONIO 1538) [place] [address] [id number] 10:26:00 Test Item Value Reference Range Interpretation Comments PARTIAL THROMBOPLASTIN TIME 94.0 seconds 22.5-36.0 H ([facility]) (test code = 760) While on warfarin.PROTHROMBIN TIME/[id number] 10:24:00 Test Item Value Reference Range Interpretation [...] METER 124 mg/dL 70-[address] [facility] 6720 ([facility]) (test code = [facility] 1538) [address] RAD, CHEST, 1 VIEW, NON [id number] 08:19:00Reason for exam:->Post opShould this be performed [...] Lisa Verified Date/Time: 01/03/2019 08:19:51 Reading Location: [address] Neuro Reading Room [id number] 03:31:00 Test Item Value Reference Range Interpretation Comments PARTIAL THROMBOPLASTIN TIME 64.2 seconds 22.5-36.0 H ([facility]) (test code = 760) BASIC METABOLIC [id number] 03:21:00 Test Item Value Reference Range Interpretation [...] CELL DISTRIBUTION WIDTH 16.1 % 11.6-14.4 H ([facility]) (test code = 412) PLATELET COUNT ([facility]) (test 167 K/CU MM 150-450 code = 756) MEAN PLATELET VOLUME ([facility]) 8.7 fL 9.4-12.4 L (test code = 754) NUCLEATED RED BLOOD CELLS 1 /100 WBC 0-0 H ([facility]) (test code = 413) POCT-GLUCOSE [id number] 22:54:00 Test Item Value Reference Range Interpretation Comments POC-GLUCOSE METER 206 mg/dL 70-110 H TESTED AT [place] [address] ([facility]) (test code = [facility] Paul [facility] 1538) [address] [id number] 19:36:00 Test Item Value Reference Range Interpretation Comments PARTIAL THROMBOPLASTIN TIME 79.3 seconds 22.5-36.0 H ([facility]) (test code = 760) POCT-GLUCOSE [id number] 17:59:00 Test Item Value Reference Range Interpretation Comments POC-GLUCOSE METER 186 mg/dL 70-110 H TESTED AT [place] [address] ([facility]) (test code = [facility] 1538) [address] POCT-GLUCOSE [id number] 13:54:00 Test Item Value Reference Range Interpretation Comments POC-GLUCOSE METER 139 mg/dL 70-110 H TESTED AT [place] [address] ([facility]) (test code = [facility] 1538) [address] POCT-GLUCOSE [id number] 13:05:00 Test Item Value Reference Range Interpretation Comments POC-GLUCOSE METER 163 mg/dL 70-110 H TESTED AT [place] [address] ([facility]) (test code = [facility] Paul [facility] 1538) [address] [id number] 12:49:00 Test Item Value Reference Range Interpretation Comments PARTIAL THROMBOPLASTIN TIME 64.9 seconds 22.5-36.0 H ([facility]) (test code = 760) OCCULT BLOOD, [id number] 12:31:00 Test Item Value Reference Range Interpretation Comments FECAL OCCULT BLOOD ([facility]) (test Negative Negative code = 618) RAD, CHEST, 1 VIEW, NON [id number] 10:37:00Reason for exam:->Post opShould this be performed [...] 01/02/2019 10:37:35 Reading Loc ation: [facility] [place] [facility] Reading Room POCT-GLUCOSE [id number] 08:07:00 Test Item Value Reference Range Interpretation Comments POC-GLUCOSE METER 107 mg/dL 70-[address] [facility] 6720 ([facility]) (test code = [facility] [place] [address]) [address] [id number] 04:48:00 Test Item Value Reference Range Interpretation Comments PARTIAL THROMBOPLASTIN TIME 106.0 seconds 22.5-36.0 H ([facility]) (test code = 760) While on warfarin.BASIC METABOLIC [id number] 04:48:00 Test Item Value Reference Range Interpretation [...] NOT APPLICABLE FOR DIALYSIS PATIEN TS. PROTHROMBIN [id number] 04:39:00 Test Item Value Reference Range Interpretation [...] 0-0 ([facility]) (test code = 413) POCT-GLUCOSE [id number] 22:17:00 Test Item Value Reference Range Interpretation Comments POC-GLUCOSE METER 117 mg/dL 70-110 H TESTED AT [place] [address] ([facility]) (test code = [facility] 1538) [address] RAD, CHEST, 1 VIEW, NON [id number] 19:40:00Reason for exam:->Post opShould this be performed [...] clear. IMPRESSION: No interval change. Signed: Edenilson Bloomort Verified Date/Time: 01/01/2019 19:40:01 Reading Location: [address] Consult Reading Room POCT-GLUCOSE [id number] 18:22:00 Test Item Value Reference Range Interpretation Comments POC-GLUCOSE METER 159 mg/dL 70-110 H TESTED AT [place] [address] ([facility]) (test code = [facility] 1538) [address]326 POCT-GLUCOSE [id number] 14:12:00 Test Item Value Reference Range Interpretation Comments POC-GLUCOSE METER 135 mg/dL 70-110 H TESTED AT [place] [address] ([facility]) (test code = MARIA GNJ Humberto [facility] 1538) [address] HEPATITIS B SURFACE [id number] 11:52:00 Test Item Value Reference Range Interpretation Comments HEPATITIS B SURFACE ANTIGEN (2) Nonreactive Nonreactive ([facility]) (test code = 2585) POCT-GLUCOSE [id number] 08:40:00 Test Item Value Reference Range Interpretation Comments POC-GLUCOSE METER 85 mg/dL 70-110 TESTED AT [place] [address] ([facility]) (test code = [facility] Humberto [facility] [address] 1538) BASIC METABOLIC [id number] 04:17:00 Test Item Value Reference Range Interpretation [...] S NOT APPLICABLE FOR DIALYSIS PATIEN TS. [id number] 03:40:00 Test Item Value Reference Range Interpretation Comments PARTIAL THROMBOPLASTIN TIME 84.1 seconds 22.5-36.0 H ([facility]) (test code = 760) While on warfarin.PROTHROMBIN TIME/[id number] 03:39:00 Test Item Value Reference Range Interpretation [...] CELL DISTRIBUTION WIDTH 15.9 % 11.6-14.4 H ([facility]) (test code = 412) PLATELET COUNT ([facility]) (test 186 K/CU MM 150-450 code = 756) MEAN PLATELET VOLUME ([facility]) 9.0 fL 9.4-12.4 L (test code = 754) NUCLEATED RED BLOOD CELLS 0 /100 WBC 0-0 ([facility]) (test code = 413) POCT-GLUCOSE [id number] 22:08:00 Test Item Value Reference Range Interpretation Comments POC-GLUCOSE METER 194 mg/dL 70-110 H TESTED AT [place] [address] ([facility]) (test code = [facility] 1538) [address] POCT-GLUCOSE [id number] 22:03:00 Test Item Value Reference Range Interpretation Comments POC-GLUCOSE METER 203 mg/dL 70-110 H TESTED AT [place] [address] ([facility]) (test code = [facility] 1538) [address] POCT-GLUCOSE [id number] 21:42:00 Test Item Value Reference Range Interpretation Comments POC-GLUCOSE METER 42 mg/dL 70-110 L TESTED AT [place] [address] ([facility]) (test code = [facility] [address] 1538) [id number] 21:35:00 Test Item Value Reference Range Interpretation Comments PARTIAL THROMBOPLASTIN TIME 80.4 seconds 22.5-36.0 H ([facility]) (test code = 760) POCT-GLUCOSE [id number] 18:03:00 Test Item Value Reference Range Interpretation Comments POC-GLUCOSE METER 144 mg/dL 70-[address] [facility] 6720 ([facility]) (test code = [place] 1538) [address] TISSUE [id number] 16:33:00Surgical Pathology Report Case: [id number] Authorizing Provider: AnnetteclaraEnmanuel yeung Collected: 12/26/2018 1537 MD Liban OrderingLocation: [facility] 11 [facility] Received: 12/29/2018 0814 Service Pathologist: Brigida Parks [...] stains. GMSImmunohistochemistry technical testing was performed at [facility], Pathology Laboratory where it was developed [...] toperform high complexity clinical laboratory testing.CPT CODE: [id number] electronically signed byBrigida Parks MD on 12/31/2018 [...] ARE NEGATIVE Signing Pathologist Direct Phone Line: [phone] signed by Brigida Parks MD on 12/30/2018 at 6:43 PMPreliminary result electronically signed by Brigida Parks MD on 12/29/2018 at 4:54 [id number] X 2; 66180; 14563; 27181 X 2Upper endoscopy, biopsyPreoperative and postoperative diagnosis: [...] AND CMVImmunohistochemistry technical testing was performed at [facility], Pathology Laboratory where it was developed [...] qualified toperform high complexity clinical laboratory testing.POCT-GLUCOSE [id number] 13:57:00 Test Item Value Reference Range Interpretation Comments POC-GLUCOSE METER 178 mg/dL 70-[address] [facility] 6720 ([facility]) (test code = [place]IA [place] 1538) [address] [id number] 12:54:00 Test Item Value Reference Range Interpretation Comments PARTIAL THROMBOPLASTIN TIME 69.4 seconds 22.5-36.0 H ([facility]) (test code = 760) RAD, CHEST, 1 VIEW, NON [id number] 09:26:00Reason for exam:->Post opShould this be performed [...] MDReport Verified Date/Time: 12/31/2018 09:26:31 Reading Location: [facility] Radiology Reading Room POCT-GLUCOSE [id number] 09:01:00 Test Item Value Reference Range Interpretation Comments POC-GLUCOSE METER 162 mg/dL 70-[address] [facility] 6720 ([facility]) (test code = [place] 1538) [address] BASIC METABOLIC [id number] 06:50:00 Test Item Value Reference Range Interpretation [...] NOT APPLICABLE FOR DIALYSIS PATIEN TS. PROTHROMBIN [id number] 06:38:00 Test Item Value Reference Range Interpretation Comments PROTIME ([facility]) (test code = 19.1 seconds 11.7-14.7 H 759) INR ([facility]) (test code = 370) 1.7 <=5.9 RECOMMENDED COUMADIN/WARFARIN INR THERAPY RANGESSTANDARD DOSE: 2.0 - 3.0 Includes: PROPHYLAXIS forvenous thrombosis, systemic embolization; TREATMENT for venous thrombosis and/or pulmonary embolus.HIGH RISK: Target INR is 2.5-3.5 for patients with mechanical heart valves.While on warfarin.[id number] 06:37:00 Test Item Value Reference Range Interpretation [...] 0-0 ([facility]) (test code = 413) POCT-GLUCOSE [id number] 00:45:00 Test Item Value Reference Range Interpretation Comments POC-GLUCOSE METER 124 mg/dL 70-110 H TESTED AT [place] [address] ([facility]) (test code = [place]ER Paul [place] 1538) [address] [id number] 19:14:00 Test Item Value Reference Range Interpretation Comments PARTIAL THROMBOPLASTIN TIME 57.8 seconds 22.5-36.0 H ([facility]) (test code = 760) POCT-GLUCOSE [id number] 17:53:00 Test Item Value Reference Range Interpretation Comments POC-GLUCOSE METER 133 mg/dL 70-110 H TESTED AT [place] [address] ([facility]) (test code = [facility] Paul [facility] 1538) [address] POCT-GLUCOSE [id number] 13:19:00 Test Item Value Reference Range Interpretation Comments POC-GLUCOSE METER 147 mg/dL 70-110 H TESTED AT [place] [address] ([facility]) (test code = [facility] Paul [facility] 1538) [address] [id number] 12:43:00 Test Item Value Reference Range Interpretation Comments PARTIAL THROMBOPLASTIN TIME 57.0 seconds 22.5-36.0 H ([facility]) (test code = 760) [id number] 10:17:00 Test Item Value Reference Range Interpretation Comments PARTIAL THROMBOPLASTIN TIME 134.5 seconds 22.5-36.0 H ([facility]) (test code = 760) POCT-GLUCOSE [id number] 07:43:00 Test Item Value Reference Range Interpretation Comments POC-GLUCOSE METER 107 mg/dL 70-110 TESTED AT [place] [address] ([facility]) (test code = [facility] Paul [facility] 1538) [address] BASIC METABOLIC [id number] 06:46:00 Test Item Value Reference Range Interpretation [...] PATIEN TS. RAD, CHEST, 1 VIEW, NON [id number] 06:25:00Reason for exam:->Post opShould this be performed [...] Lisa Verified Date/Time: 12/30/2018 06:25:51 Reading Location: [address] Neuro Reading Room PROTHROMBIN TIME/[id number] 06:06:00 Test Item Value Reference Range Interpretation [...] RED BLOOD CELLS 0 /100 WBC 0-0 ([facility]) (test code = 413) POCT-GLUCOSE [id number] 22:19:00 Test Item Value Reference Range Interpretation Comments POC-GLUCOSE METER 179 mg/dL 70-110 H TESTED AT [place] [address] ([facility]) (test code = [place] 1538) [address] POCT-GLUCOSE [id number] 17:39:00 Test Item Value Reference Range Interpretation Comments POC-GLUCOSE METER 181 mg/dL 70-110 H TESTED AT [place] [address] ([facility]) (test code = [place] 1538) [address] POCT-GLUCOSE [id number] 13:14:00 Test Item Value Reference Range Interpretation Comments POC-GLUCOSE METER 102 mg/dL 70-110 TESTED AT [place] [address] ([facility]) (test code = [facility] Paul [facility] 1538) [address] RAD, CHEST, 1 VIEW, NON [id number] 08:56:00Reason for exam:->Post opShould this be performed [...] MDReport Verified Date/Time: 12/29/2018 08:56:32 Reading Location: [facility] Radiology Reading Room Electronically signed by: EDENILSON BLOOM M.D.on 12/29/2018 08:56 AMPOCT-GLUCOSE [id number] 07:53:00 Test Item Value Reference Range Interpretation Comments POC-GLUCOSE METER 135 mg/dL 70-[address] [facility] 6720 [facility] (test code = [place] 1538) [address] [id number] 06:45:00 Test Item Value Reference Range Interpretation Comments PARTIAL THROMBOPLASTIN TIME 83.5 seconds 22.5-36.0 H ([facility]) (test code = 760) While on warfarin.PROTHROMBIN TIME/[id number] 06:44:00 Test Item Value Reference Range Interpretation [...] WBC 0-0 ([facility]) (test code = 413) [id number] 00:01:00 Test Item Value Reference Range Interpretation Comments PARTIAL THROMBOPLASTIN TIME 78.5 seconds 22.5-36.0 H ([facility]) (test code = 760) POCT-GLUCOSE [id number] 21:26:00 Test Item Value Reference Range Interpretation Comments POC-GLUCOSE METER 139 mg/dL 70-[address] [facility] 6720 ([facility]) (test code = FOSTER Paul [place] 1538) [address] POCT-GLUCOSE [id number] 17:58:00 Test Item Value Reference Range Interpretation Comments POC-GLUCOSE METER 146 mg/dL 70-[address] [facility] 6720 ([facility]) (test code = FOSTER Paul [place] 1538) [address] [id number] 17:16:00 Test Item Value Reference Range Interpretation Comments PARTIAL THROMBOPLASTIN TIME 34.5 seconds 22.5-36.0 ([facility]) (test code = 760) Prior to initiating heparinPOCT-GLUCOSE [id number] 12:54:00 Test Item Value Reference Range Interpretation Comments POC-GLUCOSE METER 133 mg/dL 70-110 H TESTED AT [place] [address] ([facility]) (test code = [facility]ER Paul [facility] 1538) [address] RAD, CHEST, 1 VIEW, NON [id number] 08:06:00Reason for exam:->Post opShould this be performed at the bedside?->YesFINAL REPORT Chest one view. Clinical history: Post op Comparison: 12/27/2018 Discussion: A frontal chest is provided. Cardiomediastinal contours are unchanged. Lines and tubesare in stable position. Unchanged right-sided pleural-parenchymal opacities. Left lung is grossly clear. Vessels do not appear engorged. No pneumothorax. Signed: Dionicio Chery Verified Date/Time: 12/28/2018 08:06:07 Reading Location: [address] Neuro Reading Room BASIC METABOLIC [id number] 06:52:00 Test Item Value Reference Range Interpretation [...] NOT APPLICABLE FOR DIALYSIS PATIEN TS. PROTHROMBIN [id number] 06:31:00 Test Item Value Reference Range Interpretation [...] L code = 756) MEAN PLATELET VOLUME ([facility]) 9.3 fL 9.4-12.4 L (test code = 754) NUCLEATED RED BLOOD CELLS 0 /100 WBC 0-0 ([facility]) (test code = 413) POCT-GLUCOSE [id number] 21:41:00 Test Item Value Reference Range Interpretation Comments POC-GLUCOSE METER 163 mg/dL 70-[address] [facility] 6720 ([facility]) (test code = F[facility] Paul [facility] 1538) [address] POCT-GLUCOSE [id number] 17:23:00 Test Item Value Reference Range Interpretation Comments POC-GLUCOSE METER 119 mg/dL 70-[address] [facility] 67 ([facility]) (test code = [facility] Paul [facility] 1538) [address] RAD, CHEST, 1 VIEW, NON [id number] 14:49:00Reason for exam:->Post opShould this be performed [...] MDReport Verified Date/Time: 12/27/2018 14:49:48 Reading Location: [address] Ortho Consult Reading Room ANG, NON-TUNNELED CATH >5 Y.O. [id number] 14:17:00Reason for exam:->Central line placement, poor access, [...] guide wire was advanced centrally. A 7 Iranian 20 cm triple lumen catheter was advanced [...] Sykes Verified Date/Time: 12/27/2018 14:17:02 Reading Location: [place] [address] Angio Body Reading Room [id number] 13:44:00 Test Item Value Reference Range Interpretation Comments PARTIAL THROMBOPLASTIN TIME 44.3 seconds 22.5-36.0 H ([facility]) (test code = 760) Prior to initiating heparinPOCT-GLUCOSE [id number] 13:27:00 Test Item Value Reference Range Interpretation Comments POC-GLUCOSE METER 127 mg/dL 70-[address] [facility] 6720 ([facility]) (test code = [facility] 1538) [address] POCT-GLUCOSE [id number] 08:58:00 Test Item Value Reference Range Interpretation Comments POC-GLUCOSE METER 79 mg/dL 70-[address] [facility] 6720 ([facility]) (test code = [facility] [address] 1538) BASIC METABOLIC [id number] 07:09:00 Test Item Value Reference Range Interpretation Comments SODIUM ([facility]) 135 meq/L 136-145 L (test code = [...] NOT APPLICABLE FOR DIALYSIS PATIEN TS. PROTHROMBIN TIME/[id number] 06:52:00 Test Item Value Reference Range Interpretation [...] 753) MEAN CORPUSCULAR HEMOGLOBIN 31.9 pg 25.7-32.2 ([facility]) (test code = 751) MEAN CORPUSCULAR HEMOGLOBIN CONC 30.7 GM/DL 32.3-36.5 L ([facility]) (test code = 752) RED CELL DISTRIBUTION WIDTH 15.0 % 11.6-14.4 H ([facility]) (test code = 412) PLATELET COUNT ([facility]) (test code 90 K/CU MM 150-450 L = 756) MEAN PLATELET VOLUME ([facility]) 9.1 fL 9.4-12.4 L (test code = 754) NUCLEATED RED BLOOD CELLS ([facility]) 0 /100 WBC 0-0 (test code = 413) POCT-GLUCOSE [id number] 23:54:00 Test Item Value Reference Range Interpretation Comments POC-GLUCOSE METER 73 mg/dL 70-110 TESTED AT [place] [address] ([facility]) (test code = [facility] [address] 1538) POCT-GLUCOSE [id number] 16:02:00 Test Item Value Reference Range Interpretation Comments POC-GLUCOSE METER 108 mg/dL 70-110 TESTED AT [place] [address] ([facility]) (test code = [facility] 1538) [address] POCT-GLUCOSE [id number] 15:24:00 Test Item Value Reference Range Interpretation Comments POC-GLUCOSE METER 74 mg/dL 70-110 TESTED AT [place] [address] ([facility]) (test code = [facility] [address] 1538) POCT-GLUCOSE [id number] 10:29:00 Test Item Value Reference Range Interpretation Comments POC-GLUCOSE METER 88 mg/dL 70-110 TESTED AT [place] [address] ([facility]) (test code = [facility] [address] 1538) RAD, CHEST, 1 VIEW, NON [id number] 07:33:00Reason for exam:->Post opShould this be performed [...] IMPRESSION: No significant change. Signed: Sarah Beth Mejiaeport Verified Date/Time: 12/26/2018 07:33:38 Reading Location: [facility] Radiology Reading Room BASIC METABOLIC [id number] 06:42:00 Test Item Value Reference Range Interpretation [...] 0-0 H (test code = 413) PROTHROMBIN [id number] 05:44:00 Test Item Value Reference Range Interpretation Comments PROTIME ([facility]) (test code = 24.4 seconds 11.7-14.7 H 759) INR ([facility]) (test code = 370) 2.2 <=5.9 RECOMMENDED COUMADIN/WARFARIN INR THERAPY RANGESSTANDARD DOSE: 2.0 - 3.0 Includes: PROPHYLAXIS forvenous thrombosis, systemic embolization; TREATMENT for venous thrombosis and/or pulmonary embolus.HIGH RISK: Target INR is 2.5-3.5 for patients with mechanical heart valves.POCT-GLUCOSE [id number] 00:06:00 Test Item Value Reference Range Interpretation Comments POC-GLUCOSE METER 88 mg/dL 70-110 TESTED AT [place] [address] ([facility]) (test code = [place] [facility] [address] 1538) POCT-GLUCOSE [id number] 19:06:00 Test Item Value Reference Range Interpretation Comments POC-GLUCOSE METER 121 mg/dL 70-[address] [facility] 6720 ([facility]) (test code = [facility] H[place] [facility] 1538) [address] PROTHROMBIN [id number] 16:10:00 Test Item Value Reference Range Interpretation Comments PROTIME ([facility]) (test code = 30.1 seconds 11.7-14.7 H 759) INR ([facility]) (test code = 370) 2.9 <=5.9 RECOMMENDED COUMADIN/WARFARIN INR THERAPY RANGESSTANDARD DOSE: 2.0 - 3.0 Includes: PROPHYLAXIS forvenous thrombosis, systemic embolization; TREATMENT for venous thrombosis and/or pulmonary embolus.HIGH RISK: Target INR is 2.5-3.5 for patients with mechanical heart valves.BASIC METABOLIC [id number] 16:10:00 Test Item Value Reference Range Interpretation [...] S NOT APPLICABLE FOR DIALYSIS PATIEN TS. [id number] 16:09:00 Test Item Value Reference Range Interpretation [...] 0-0 H (test code = 413) POCT-GLUCOSE [id number] 08:03:00 Test Item Value Reference Range Interpretation Comments POC-GLUCOSE METER 89 mg/dL 70-[address] [facility] 6720 ([facility]) (test code = [place] [address] 1538) RAD, CHEST, 1 VIEW, NON [id number] 07:46:00Reason for exam:->Post opShould this be performed at the bedside?->YesFINAL REPORT Chest one view. Clinical history: Post op Comparison: 12/24/2018 Discussion: A frontal chest is provided. Cardiomediastinal contours are unchanged. Stable appearance of pleural-parenchymal opacity at the right mid to lower lung. There is a tiny right apical pneumothorax, unchanged. Probable trace left effusion. Signed: Dionicio Chery Verified Date/Time: 07:46:01 Reading Location: [facility] Radiology Reading Room RAD, ABDOMEN/KUB, 1 VIEW [id number] 07:25:00Reason for exam:->abdominal distentionShould this be performed at the bedside?->YesFINAL REPORT Abdomen one view Comparison: January 18, 2018 Reason for exam: abd ominal distention Findings: Bowel gas pattern is nonobstructive, nonspecific. No free air is identified. No suspicious calcification. No acute bony abnormality. Liver appears enlarged. There is pleuralparenchymal opacity in the mid to lower right lung. Signed: Miri, Dionicio MDReport Verified Date/Time: 12/25/2018 07:25:40 Reading Location: [facility] Radiology Reading Room POCT-GLUCOSE [id number] 22:06:00 Test Item Value Reference Range Interpretation Comments POC-GLUCOSE METER 102 mg/dL 70-110 TESTED AT [place] [address] ([facility]) (test code = [place] [facility] 1538) [address] POCT-GLUCOSE [id number] 18:44:00 Test Item Value Reference Range Interpretation Comments POC-GLUCOSE METER 100 mg/dL 70-110 TESTED AT [place] [address] ([facility]) (test code = [place] 1538) [address] POCT-GLUCOSE [id number] 14:54:00 Test Item Value Reference Range Interpretation Comments POC-GLUCOSE METER 103 mg/dL 70-110 TESTED AT [place] [address] ([facility]) (test code = [place] [facility] 1538) [address] [id number] 08:07:00 Test Item Value Reference Range Interpretation Comments FERRITIN ([facility]) (test code = 2044 ng/mL 5-275 H 361) POCT-GLUCOSE [id number] 07:57:00 Test Item Value Reference Range Interpretation Comments POC-GLUCOSE METER 76 mg/dL 70-110 TESTED AT [place] [address] ([facility]) (test code = [place] [facility] [address] 1538) RAD, CHEST, 1 VIEW, NON [id number] 07:57:00Reason for exam:->Post opShould this be performed [...] MDReport Verified Date/Time: 12/24/2018 07:57:06 Reading Location: [facility] Radiology Reading Room CBC (HEMOGRAM ONLY) [...] H (test code = 413) BASIC METABOLIC [id number] 07:14:00 Test Item Value Reference Range Interpretation [...] S NOT APPLICABLE FOR DIALYSIS PATIEN TS. [id number] 07:08:00 Test Item Value Reference Range Interpretation [...] % 20-55 (test code = 2590) PROTHROMBIN [id number] 07:05:00 Test Item Value Reference Range Interpretation Comments PROTIME ([facility]) (test code = 38.7 seconds 11.7-14.7 H 759) INR ([facility]) (test code = 370) 3.9 <=5.9 RECOMMENDED COUMADIN/WARFARIN INR THERAPY RANGESSTANDARD DOSE: 2.0 - 3.0 Includes: PROPHYLAXIS forvenous thrombosis, systemic embolization; TREATMENT for venous thrombosis and/or pulmonary embolus.HIGH RISK: Target INR is 2.5-3.5 for patients with mechanical heart valves.POCT-GLUCOSE [id number] 00:26:00 Test Item Value Reference Range Interpretation Comments POC-GLUCOSE METER 86 mg/dL 70-110 TESTED AT [place] [address] ([facility]) (test code = [facility] [address] 1538) POCT-GLUCOSE [id number] 00:26:00 Test Item Value Reference Range Interpretation Comments POC-GLUCOSE METER 137 mg/dL 70-110 H TESTED AT [place] [address] ([facility]) (test code = [facility] 1538) [address] POCT-GLUCOSE [id number] 16:07:00 Test Item Value Reference Range Interpretation Comments POC-GLUCOSE METER 72 mg/dL 70-110 TESTED AT [facility] 6720 ([facility]) (test code = [facility] [address] 1538) POCT-GLUCOSE [id number] 16:07:00 Test Item Value Reference Range Interpretation Comments POC-GLUCOSE METER 61 mg/dL 70-[address] [facility] 6720 [facility] (test code = [facility] [address] 1538) POCT-GLUCOSE [id number] 11:27:00 Test Item Value Reference Range Interpretation Comments POC-GLUCOSE METER 82 mg/dL 70-110 TESTED AT [place] [address] ([facility]) (test code = [facility] [address] 1538) POCT-GLUCOSE [id number] 10:32:00 Test Item Value Reference Range Interpretation Comments POC-GLUCOSE METER 43 mg/dL 70-110 L TESTED AT [place] [address] ([facility]) (test code = [facility] [address] 1538) BASIC METABOLIC [id number] 07:28:00 Test Item Value Reference Range Interpretation [...] S NOT APPLICABLE FOR DIALYSIS PATIEN TS. [id number] 07:24:00 Test Item Value Reference Range Interpretation Comments MAGNESIUM ([facility]) 2.0 mg/dL 1.6-2.6 Specimen slightly (test code = 627) hemolyzed [id number] 07:24:00 Test Item Value Reference Range Interpretation Comments PHOSPHORUS ([facility]) 4.4 mg/dL 2.3-4.7 Specimen slightly (test code = 604) hemolyzed PROTHROMBIN [id number] 07:20:00 Test Item Value Reference Range Interpretation [...] = 413) RAD, CHEST, 1 VIEW, NON [id number] 04:22:00Reason for exam:->Post opShould this be performed [...] is no no definite pneumothorax. Signed: Raz Tayloreport Verified Date/Time: 12/23/2018 04:22:43 Reading Location: [facility] C013Y CT Body Reading Room POCT-GLUCOSE [id number] 03:01:00 Test Item Value Reference Range Interpretation Comments POC-GLUCOSE METER 85 mg/dL 70-[address] [facility] 6720 ([facility]) (test code = [place] [facility] [address] 1538) BASIC METABOLIC [id number] 18:52:00 Test Item Value Reference Range Interpretation [...] H ([facility]) (test code = 413) ANAEROBIC [id number] 17:00:00 Test Item Value Reference Range Interpretation Comments CULTURE ([facility]) (test No anaerobes isolated code = 1095) RAD, CHEST, 1 VIEW, NON [id number] 07:44:00Reason for exam:->Post opShould this be performed [...] Arteaga Verified Date/Time: 12/22/2018 07:44:12 Reading Location: [facility] Radiology Reading Room PROTHROMBIN [id number] 04:31:00 Test Item Value Reference Range Interpretation Comments PROTIME [facility] (test code = 63.0 seconds 11.7-14.7 H 759) INR ([facility]) (test code = 370) 7.6 <=5.9 RECOMMENDED COUMADIN/WARFARIN INR THERAPY RANGESSTANDARD DOSE: 2.0 - 3.0 Includes: PROPHYLAXIS forvenous thrombosis, systemic embolization; TREATMENT for venous thrombosis and/or pulmonary embolus.HIGH RISK: Target INR is 2.5-3.5 for patients with mechanical heart valves.While on warfarin.POCT-GLUCOSE METER 2018-12-21 22:29:00 Test Item Value Reference Range Interpretation Comments POC-GLUCOSE METER 141 mg/dL 70-110 H TESTED AT [place] [address] ([facility]) (test code = [place] [facility] 1538) [address] POCT-GLUCOSE [id number] 13:22:00 Test Item Value Reference Range Interpretation Comments POC-GLUCOSE METER 100 mg/dL 70-110 TESTED AT [place] [address] ([facility]) (test code = MARIA GNJ Humberto [facility] 1538) [address] RAD, CHEST, 1 VIEW, NON [id number] 08:01:00Reason for exam:->Post opShould this be performed [...] Lisa Verified Date/Time: 12/21/2018 08:01:46 Reading Location: [facility] C013V Neuro Reading Room PROTHROMBIN [id number] 05:30:00 Test Item Value Reference Range Interpretation Comments PROTIME ([facility]) (test code = 39.1 seconds 11.7-14.7 H 759) INR ([facility] (test code = 370) 4.0 <=5.9 RECOMMENDED COUMADIN/WARFARIN INR THERAPY RANGESSTANDARD DOSE: 2.0 - 3.0 Includes: PROPHYLAXIS forvenous thrombosis, systemic embolization; TREATMENT for venous thrombosis and/or pulmonary embolus.HIGH RISK: Target INR is 2.5-3.5 for patients with mechanical heart valves.While on warfarin.POCT-GLUCOSE METER 2018-12-20 22:10:00 Test Item Value Reference Range Interpretation Comments POC-GLUCOSE METER 98 mg/dL 70-110 TESTED AT [place] [address] ([facility]) (test code = [place] [facility] [address] 1538) POCT-GLUCOSE [id number] 17:40:00 Test Item Value Reference Range Interpretation Comments POC-GLUCOSE METER 91 mg/dL 70-110 TESTED AT [place] [address] ([facility]) (test code = [facility] [place] [facility] [address] 1538) POCT-GLUCOSE [id number] 13:13:00 Test Item Value Reference Range Interpretation Comments POC-GLUCOSE METER 73 mg/dL 70-110 TESTED AT [place] [address] ([facility]) (test code = [facility] [place] [facility] [address] 1538) SURGICALLY OBTAINED CULTURE + GRAM [id number] 08:41:00 Test Item Value Reference Range Interpretation Comments CULTURE ([facility]) (test No growth code = 1095) GRAM STAIN RESULT No White blood cells ([facility]) (test code = seen 1123) GRAM STAIN RESULT No organisms seen ([facility]) (test code = 53575) RAD, CHEST, 1 VIEW, NON [id number] 08:20:00Reason for exam:->Post opShould this be performed [...] MDReport Verified Date/Time: 12/20/2018 08:20:58 Reading Location: [address] Neuro Reading Room BASIC METABOLIC [id number] 08:09:00 Test Item Value Reference Range Interpretation [...] S NOT APPLICABLE FOR DIALYSIS PATIEN TS. [id number] 08:00:00 Test Item Value Reference Range Interpretation Comments PHOSPHORUS ([facility]) (test code = 4.5 mg/dL 2.3-4.7 604) CALCIUM, [id number] 07:20:00 Test Item Value Reference Range Interpretation Comments CALCIUM IONIZED ([facility]) (test 1.04 mmol/L 1.12-1.27 L code = 698) PH, BLOOD ([facility]) (test code = 7.35 1810) PROTHROMBIN [id number] 07:04:00 Test Item Value Reference Range Interpretation [...] 0-0 ([facility]) (test code = 413) POCT-GLUCOSE [id number] 22:00:00 Test Item Value Reference Range Interpretation Comments POC-GLUCOSE METER 188 mg/dL 70-[address] [facility] 6720 ([facility]) (test code = [place] [facility] 1538) [address] TISSUE [id number] 18:15:00Surgical Pathology Report Case: [id number] Authorizing Provider: Moiz Vargas, Collected: 12/17/2018 0950 Ordering Location: [facility] Received: 12/17/2018 1129 PERIOPERATIVE SERVICES Pathologist: Kwan Perla MD Specimen: Pleural, Right, RIGHT PLEURAL PEEL PLEURA, RIGHT, DECORTICATION- MILD CHRONIC INFLAMMATION AND GRANULATION TISSUE- ORGANIZING BLOOD CLOTS- NO MALIGNANT CELLS IDENTIFIED Signing Pathologist Direct Phone Line: [phone] signed by Kwan Perla MD on 12/19/2018 at 6:15 PMCorrelation with microbiology cultures is recommended.77657Zvzonzu effusion and other conditions classified elsewhereRight pleural peelThe specimen is received in a formalin-filled container labeled with the patient's information and labeled "right pleural peel" and consists of multiple fragments of porter-red, dusky, firm tissue measuring 6 x 5 x 0.4 cm in aggregate. Dragline Operator Helper sections are submitted in A1-A3. CG/ew Performed.POCT-GLUCOSE [id number] 17:11:00 Test Item Value Reference Range Interpretation Comments POC-GLUCOSE METER 126 mg/dL 70-[address] [facility] 6720 ([facility]) (test code = [place] [facility] 1538) [address] POCT-GLUCOSE [id number] 12:57:00 Test Item Value Reference Range Interpretation Comments POC-GLUCOSE METER 143 mg/dL 70-[address] [facility] 6720 ([facility]) (test code = [place] [facility] 1538) [address] POCT-GLUCOSE [id number] 07:27:00 Test Item Value Reference Range Interpretation Comments POC-GLUCOSE METER 141 mg/dL 70-[address] [facility] 6720 ([facility]) (test code = [place] [facility] 1538) [address] CALCIUM, [id number] 06:29:00 Test Item Value Reference Range Interpretation Comments CALCIUM IONIZED ([facility]) (test 1.00 mmol/L 1.12-1.27 L code = 698) PH, BLOOD ([facility]) (test code = 7.45 1810) RAD, CHEST, 1 VIEW, NON [id number] 04:54:00Reason for exam:->Post opShould this be performed [...] are median sternotomy wires. Signed: Raz Taylor MDRepparkland [facility] Verified Date/Time: 2018 04:54:49 Reading Location: [facility] C013Y CT Body Reading Room BASIC METABOLIC [id number] 04:19:00 Test Item Value Reference Range Interpretation [...] S NOT APPLICABLE FOR DIALYSIS PATIEN TS. [id number] 04:16:00 Test Item Value Reference Range Interpretation Comments PHOSPHORUS ([facility]) (test code = 3.4 mg/dL 2.3-4.7 604) PROTHROMBIN [id number] 04:06:00 Test Item Value Reference Range Interpretation [...] RED BLOOD CELLS 0 /100 WBC 0-0 ([facility]) (test code = 413) POCT-GLUCOSE [id number] 22:11:00 Test Item Value Reference Range Interpretation Comments POC-GLUCOSE METER 149 mg/dL 70-110 H TESTED AT [place] [address] ([facility]) (test code = [facility] Humberto [facility] 1538) [address] POCT-GLUCOSE [id number] 17:52:00 Test Item Value Reference Range Interpretation Comments POC-GLUCOSE METER 122 mg/dL 70-110 H TESTED AT [place] [address] ([facility]) (test code = [facility] 1538) [address] POCT-GLUCOSE [id number] 14:26:00 Test Item Value Reference Range Interpretation Comments POC-GLUCOSE METER 98 mg/dL 70-110 TESTED AT [place] [address] ([facility]) (test code = [facility] [address] 1538) HEMOGLOBIN AND [id number] 12:47:00 Test Item Value Reference Range Interpretation Comments HEMOGLOBIN ([facility]) (test code = 9.2 GM/DL 13.7-17.5 L 410) HEMATOCRIT ([facility]) (test code = 28.3 % 40.1-51.0 L 411) POCT-GLUCOSE [id number] 09:38:00 Test Item Value Reference Range Interpretation Comments POC-GLUCOSE METER 73 mg/dL 70-110 TESTED AT [place] [address] ([facility]) (test code = [facility] [address] 1538) PROTEIN ELECTROPHORESIS, [id number] 09:21:00 Test Item Value Reference Range Interpretation [...] of chronic inflammation. No monoclonal bands detected. [id number] Amanda De Jesus MD ([facility]) (test code = (electronic signature) 8586) PROTEIN TOTAL SERUM, 7.5 gm/dL 6.0-8.3 SPEP ([facility]) (test code = 2660) RAD, CHEST, 1 VIEW, NON [id number] 06:47:00Reason for exam:->Post opShould this be performed [...] MDReport Verified Date/Time: 12/18/2018 06:47:21 Reading Location: [facility] B1 C013Y CT Body Reading Room [id number] 06:20:00 Test Item Value Reference Range Interpretation Comments MAGNESIUM ([facility]) (test code = 2.2 mg/dL 1.6-2.6 627) CALCIUM, [id number] 06:00:00 Test Item Value Reference Range Interpretation Comments CALCIUM IONIZED ([facility]) (test 1.09 mmol/L 1.12-1.27 L code = 698) PH, BLOOD ([facility]) (test code = 7.34 1810) BASIC METABOLIC [id number] 05:07:00 Test Item Value Reference Range Interpretation [...] S NOT APPLICABLE FOR DIALYSIS PATIEN TS. [id number] 04:54:00 Test Item Value Reference Range Interpretation Comments PHOSPHORUS ([facility]) (test code = 6.3 mg/dL 2.3-4.7 H 604) HEPATIC FUNCTION [id number] 04:54:00 Test Item Value Reference Range Interpretation [...] (test code = 23 U/L 6-55 347) [id number] 04:51:00 Test Item Value Reference Range Interpretation Comments PARTIAL THROMBOPLASTIN TIME 38.6 seconds 22.5-36.0 H ([facility]) (test code = 760) PROTHROMBIN [id number] 04:50:00 Test Item Value Reference Range Interpretation Comments PROTIME ([facility]) (test code = 16.0 seconds 11.7-14.7 H 759) INR ([facility]) (test code = 370) 1.3 <=5.9 RECOMMENDED COUMADIN/WARFARIN INR THERAPY RANGESSTANDARD DOSE: 2.0 - 3.0 Includes: PROPHYLAXIS forvenous thrombosis, systemic embolization; TREATMENT for venous thrombosis and/or pulmonary embolus.HIGH RISK: Target INR is 2.5-3.5 for patients with mechanical heart valves.[id number] 04:50:00 Test Item Value Reference Range Interpretation Comments FIBRINOGEN LEVEL ([facility]) (test 494 mg/dl 225-434 H code = 658) PLATELET [id number] 04:38:00 Test Item Value Reference Range Interpretation [...] WBC 0-0 ([facility]) (test code = 413) [id number] 18:48:00 Test Item Value Reference Range Interpretation Comments MAGNESIUM ([facility]) (test code = 2.4 mg/dL 1.6-2.6 627) POCT-GLUCOSE [id number] 18:42:00 Test Item Value Reference Range Interpretation Comments POC-GLUCOSE METER 121 mg/dL 70-[address] [facility] 6720 ([facility]) (test code = [place] 1538) [address] HEMOGLOBIN AND [id number] 18:37:00 Test Item Value Reference Range Interpretation Comments HEMOGLOBIN ([facility]) (test code = 10.0 GM/DL 13.7-17.5 L 410) HEMATOCRIT ([facility]) (test code = 31.3 % 40.1-51.0 L 411) RAD, CHEST, 1 VIEW, NON [id number] 13:28:00Reason for exam:->post opShould this be performed [...] MDReport Verified Date/Time: 12/17/2018 13:28:23 Reading Location: [facility] Reading Room BASI METABOLIC [id number] 13:03:00 Test Item Value Reference Range Interpretation [...] S NOT APPLICABLE FOR DIALYSIS PATIEN TS. [id number] 12:53:00 Test Item Value Reference Range Interpretation Comments PHOSPHORUS ([facility]) (test code = 4.3 mg/dL 2.3-4.7 604) [id number] 12:53:00 Test Item Value Reference Range Interpretation Comments MAGNESIUM ([facility]) (test code = 1.5 mg/dL 1.6-2.6 L 627) LACTIC ACID, [id number] 12:50:00 Test Item Value Reference Range Interpretation Comments LACTATE BLOOD ARTERIAL (2) 0.9 mmol/L 0.5-2.2 ([facility]AKER) (test code = 2874) CBC W/PLT COUNT & AUTO [id number] 12:47:00 Test Item Value Reference Range Interpretation [...] PERCENT ([facility]) (test code = 2801) CALCIUM, [id number] 12:26:00 Test Item Value Reference Range Interpretation Comments CALCIUM IONIZED ([facility]) (test 1.07 mmol/L 1.12-1.27 L code = 698) PH, BLOOD ([facility]) (test code = 7.38 1810) BLOOD GAS, [id number] 12:26:00 Test Item Value Reference Range Interpretation [...] (test code = 1819) 40.0 % CALCIUM, [id number] 10:25:00 Test Item Value Reference Range Interpretation Comments CALCIUM IONIZED ([facility]) (test 1.09 mmol/L 1.12-1.27 L code = 698) PH, BLOOD ([facility]) (test code = 7.45 1810) BLOOD GAS, [id number] 10:22:00 Test Item Value Reference Range Interpretation Comments PH ARTERIAL ([facility]) (test code = 7.48 7.35-7.45 H 383) PCO2 ARTERIAL ([facility]) (test code 34 mmHg 35-45 L = 384) PO2 ARTERIAL ([facility]) (test code = 391 mmHg 80-90 H 385) O2 SATURATION ARTERIAL (BEAKER) 99.8 % 96.0-97.0 H (test code = 386) HCO3 ARTERIAL ([facility]) (test code 26 mmol/L 29 = 388) BASE EXCESS ARTERIAL ([facility]AKER) 1.6 mmol/L -2.0-3.0 (test code = 387) PATIENT TEMPERATURE ([facility]AKER) (test 34.9 C code = 1818) FIO2 ([facility]AKER) (test code = 1819) 96.0 % SODIUM NA-STAT [id number] 10:22:00 Test Item Value Reference Range Interpretation Comments SODIUM ([facility]) (test code = 381) 133 meq/L 135-148 L GLUCOSE-STAT [id number] 10:22:00 Test Item Value Reference Range Interpretation Comments GLUCOSE RANDOM ([facility]) (test code 116 mg/dL 70-110 H = 652) HGB/HCT (H&H) - STAT [id number] 10:22:00 Test Item Value Reference Range Interpretation Comments HEMOGLOBIN ([facility]) (test code = 8.9 g/dL 13.0-16.8 L 410) HEMATOCRIT ([facility]AK[facility]) (test code = 26.0 % 40.0-50.0 L 411) POTASSIUM-STAT [id number] 10:20:00 Test Item Value Reference Range Interpretation Comments POTASSIUM ([facility]) (test code = 4.0 meq/L 3.6-5.5 379) HEMOGLOBIN [id number] 09:33:00 Test Item Value Reference Range Interpretation Comments HEMOGLOBIN A1C (BEAKER) (test code = 5.9 % 4.3-6.1 368) BLOOD GAS, [id number] 09:27:00 Test Item Value Reference Range Interpretation [...] code = 1819) 100.0 % SODIUM NA-STAT [id number] 09:27:00 Test Item Value Reference Range Interpretation Comments SODIUM (BEAKER) (test code = 381) 133 meq/L 135-148 L HGB/HCT (H&H) - STAT [id number] 09:27:00 Test Item Value Reference Range Interpretation Comments HEMOGLOBIN (BEAKER) (test code = 9.4 g/dL 13.0-16.8 L 410) HEMATOCRIT (BEAKER) (test code = 28.0 % 40.0-50.0 L 411) GLUCOSE-STAT [id number] 09:26:00 Test Item Value Reference Range Interpretation Comments GLUCOSE RANDOM (BEAKER) (test code = 97 mg/dL 70-110 652) POTASSIUM-STAT [id number] 09:26:00 Test Item Value Reference Range Interpretation Comments POTASSIUM (BEAKER) (test code = 3.9 meq/L 3.6-5.5 379) CALCIUM, [id number] 09:26:00 Test Item Value Reference Range Interpretation Comments CALCIUM IONIZED (BEAKER) (test 1.17 mmol/L 1.12-1.27 code = 698) PH, BLOOD (BEAKER) (test code = 7.44 1810) BLOOD GAS, [id number] 08:32:00 Test Item Value Reference Range Interpretation [...] code = 1819) 96.0 % SODIUM NA-STAT [id number] 08:32:00 Test Item Value Reference Range Interpretation Comments SODIUM (BEAKER) (test code = 381) 133 meq/L 135-148 L GLUCOSE-STAT [id number] 08:32:00 Test Item Value Reference Range Interpretation Comments GLUCOSE RANDOM (BEAKER) (test code 113 mg/dL 70-110 H = 652) HGB/HCT (H&H) - STAT [id number] 08:32:00 Test Item Value Reference Range Interpretation Comments HEMOGLOBIN (BEAKER) (test code = 9.9 g/dL 13.0-16.8 L 410) HEMATOCRIT (BEAKER) (test code = 29.0 % 40.0-50.0 L 411) CALCIUM, [id number] 08:31:00 Test Item Value Reference Range Interpretation Comments CALCIUM IONIZED (BEAKER) (test 1.05 mmol/L 1.12-1.27 L code = 698) PH, BLOOD (BEAKER) (test code = 7.49 1810) POTASSIUM-STAT [id number] 08:29:00 Test Item Value Reference Range Interpretation Comments POTASSIUM (BEAKER) (test code = 3.6 meq/L 3.6-5.5 379) POCT-GLUCOSE [id number] 06:20:00 Test Item Value Reference Range Interpretation Comments POC-GLUCOSE METER 99 mg/dL 70-[address] [facility] 6720 ([facility]) (test code = [place] [address] 1538) [id number] 05:05:00 Test Item Value Reference Range Interpretation Comments PARTIAL THROMBOPLASTIN TIME 75.6 seconds 22.5-36.0 H ([facility]) (test code = 760) LIPID [id number] 05:04:00 Test Item Value Reference Range Interpretation Comments TRIGLYCERIDES ([facility]) (test code = 53 mg/dL 540) CHOLESTEROL ([facility]) (test code = 122 mg/dL 631) HDL CHOLESTEROL ([facility]) (test code 58 mg/dL = 976) LDL CHOLESTEROL CALCULATED ([facility]) 53 mg/dL (test code = 633) Triglyceride Reference Range: Low Risk <150 Borderline 150-199 High Risk 200-499 Very High Risk >=500Cholesterol Reference Range: Low Risk <200 Borderline 200-239 High Risk >240HDL Cholesterol Reference Range: Low Risk >=60 High Risk <40LDL Cholesterol Reference Range: Optimal <100 Near Optimal 100-129 Borderline 130-159 High 160-189 Very High >=190PROTHROMBIN [id number] 05:03:00 Test Item Value Reference Range Interpretation Comments PROTIME ([facility]) (test code = 15.4 seconds 11.7-14.7 H 759) INR ([facility]) (test code = 370) 1.2 <=5.9 RECOMMENDED COUMADIN/WARFARIN INR THERAPY RANGESSTANDARD DOSE: 2.0 - 3.0 Includes: PROPHYLAXIS forvenous thrombosis, systemic embolization; TREATMENT for venous thrombosis and/or pulmonary embolus.HIGH RISK: Target INR is 2.5-3.5 for patients with mechanical heart valves.POCT-GLUCOSE [id number] 21:17:00 Test Item Value Reference Range Interpretation Comments POC-GLUCOSE METER 223 mg/dL 70-[address] [facility] 6720 ([facility]) (test code = [place] 1538) [address] COMPREHENSIVE METABOLIC [id number] 18:57:00 Test Item Value Reference Range Interpretation [...] S NOT APPLICABLE FOR DIALYSIS PATIEN TS. [id number] 18:46:00 Test Item Value Reference Range Interpretation Comments MAGNESIUM (BEAKER) (test code = 1.8 mg/dL 1.6-2.6 627) CBC W/PLT COUNT & AUTO [id number] 18:10:00 Test Item Value Reference Range Interpretation [...] PERCENT (BEAKER) (test code = 2801) POCT-GLUCOSE [id number] 17:34:00 Test Item Value Reference Range Interpretation Comments POC-GLUCOSE METER 169 mg/dL 70-[address] [facility] 6720 (BEAKER) (test code = [place] 1538) [address] HEPARIN [id number] 13:40:00 Test Item Value Reference Range Interpretation Comments HEPARIN ANTIBODY ([facility]) (test code Negative Negative = 646) HEPARIN ANTIBODY OD ([facility]) (test 0.105 <0.400 code = 2659) 4T TOTAL SCORE ([facility]) (test code = 4 8669) Probability of HIT based on scoring system: 6-8 = High probability; 4-5 = intermediate probability;0-3 = low probabilityPOCT-GLUCOSE [id number] 12:51:00 Test Item Value Reference Range Interpretation Comments POC-GLUCOSE METER 66 mg/dL 70-110 L Notified R Toy PÉREZ/TESTED AT ([facility]) (test code = [place] [address] JOSE [place]TONIO 1538) [facility] 7703 0 POCT-GLUCOSE [id number] 07:54:00 Test Item Value Reference Range Interpretation Comments POC-GLUCOSE METER 75 mg/dL 70-110 TESTED AT [place] [address] ([facility]) (test code = [facility] [address] 1538) [id number] 04:21:00 Test Item Value Reference Range Interpretation Comments PROTIME ([facility]) (test code = 15.4 seconds 11.7-14.7 H 759) INR ([facility]) (test code = 370) 1.2 <=5.9 PARTIAL THROMBOPLASTIN TIME 74.0 seconds 22.5-36.0 H ([facility]) (test code = 760) RECOMMENDED COUMADIN/WARFARIN INR THERAPY RANGESSTANDARD DOSE: 2.0 - 3.0 Includes: PROPHYLAXIS forvenous thrombosis, systemic embolization; TREATMENT for venous thrombosis and/or pulmonary embolus.HIGH RISK: Target INR is 2.5-3.5 for patients with mechanical heart valves.[id number] 04:20:00 Test Item Value Reference Range Interpretation Comments FIBRINOGEN LEVEL ([facility]) (test 525 mg/dl 225-434 H code = 658) POCT-GLUCOSE [id number] 21:25:00 Test Item Value Reference Range Interpretation Comments POC-GLUCOSE METER 129 mg/dL 70-110 H TESTED AT [place] [address] ([facility]) (test code = [facility] 1538) [address] [id number] 18:23:00 Test Item Value Reference Range Interpretation Comments PARTIAL THROMBOPLASTIN TIME 72.0 seconds 22.5-36.0 H ([facility]) (test code = 760) POCT-GLUCOSE [id number] 16:20:00 Test Item Value Reference Range Interpretation Comments POC-GLUCOSE METER 142 mg/dL 70-110 H TESTED AT [place] [address] ([facility]) (test code = [place] [facility] 1538) [address] POCT-GLUCOSE [id number] 13:05:00 Test Item Value Reference Range Interpretation Comments POC-GLUCOSE METER 86 mg/dL 70-110 TESTED AT [place] [address] ([facility]) (test code = [facility] [address] 1538) [id number] 11:19:00 Test Item Value Reference Range Interpretation Comments PARTIAL THROMBOPLASTIN TIME 72.3 seconds 22.5-36.0 H ([facility]) (test code = 760) POCT-GLUCOSE [id number] 07:56:00 Test Item Value Reference Range Interpretation Comments POC-GLUCOSE METER 87 mg/dL 70-110 TESTED AT [place] [address] ([facility]) (test code = [facility] [address] 1538) [id number] 03:13:00 Test Item Value Reference Range Interpretation Comments PARTIAL THROMBOPLASTIN TIME 97.1 seconds 22.5-36.0 H ([facility]) (test code = 760) PROTHROMBIN [id number] 03:11:00 Test Item Value Reference Range Interpretation Comments PROTIME ([facility]) (test code = 16.5 seconds 11.7-14.7 H 759) INR ([facility]) (test code = 370) 1.3 <=5.9 RECOMMENDED COUMADIN/WARFARIN INR THERAPY RANGESSTANDARD DOSE: 2.0 - 3.0 Includes: PROPHYLAXIS forvenous thrombosis, systemic embolization; TREATMENT for venous thrombosis and/or pulmonary embolus.HIGH RISK: Target INR is 2.5-3.5 for patients with mechanical heart valves.CBC (HEMOGRAM ONLY)2018-12-15 02:42:00 Test Item Value Reference Range Interpretation Comments WHITE BLOOD CELL COUNT ([facility]) 6.9 K/ L 3.5-10.5 (test code = [...] WBC 0-0 (test code = 413) POCT-GLUCOSE [id number] 21:26:00 Test Item Value Reference Range Interpretation Comments POC-GLUCOSE METER 121 mg/dL 70-110 H TESTED AT [place] [address] ([facility]) (test code = [place] 1538) [address] [id number] 19:05:00 Test Item Value Reference Range Interpretation Comments PARTIAL THROMBOPLASTIN TIME 64.0 seconds 22.5-36.0 H ([facility]) (test code = 760) POCT-GLUCOSE [id number] 17:24:00 Test Item Value Reference Range Interpretation Comments POC-GLUCOSE METER 131 mg/dL 70-110 H TESTED AT [place] [address] ([facility]) (test code = [place] 1538) [address] [id number] 13:32:00 Test Item Value Reference Range Interpretation Comments PARTIAL THROMBOPLASTIN TIME 81.4 seconds 22.5-36.0 H ([facility]) (test code = 760) POCT-GLUCOSE [id number] 12:32:00 Test Item Value Reference Range Interpretation Comments POC-GLUCOSE METER 102 mg/dL 70-110 TESTED AT [place] [address] ([facility]) (test code = [place] 1538) [address] POCT-GLUCOSE [id number] 07:07:00 Test Item Value Reference Range Interpretation Comments POC-GLUCOSE METER 113 mg/dL 70-[address] [facility] 6720 [facility] (test code = [place] [facility] 1538) [address] [id number] 05:47:00 Test Item Value Reference Range Interpretation Comments PARTIAL THROMBOPLASTIN TIME 91.8 seconds 22.5-36.0 H (BEAKER) (test code = 760) POCT-GLUCOSE [id number] 21:27:00 Test Item Value Reference Range Interpretation Comments POC-GLUCOSE METER 90 mg/dL 70-110 TESTED AT [place] [address] ([facility]) (test code = [place] [facility] [address] 1538) POCT-GLUCOSE [id number] 17:46:00 Test Item Value Reference Range Interpretation Comments POC-GLUCOSE METER 175 mg/dL 70-110 H TESTED AT [place] [address] ([facility]) (test code = [place] [facility] 1538) [address] POCT-GLUCOSE [id number] 17:30:00 Test Item Value Reference Range Interpretation Comments POC-GLUCOSE METER 84 mg/dL 70-110 TESTED AT [place] [address] ([facility]) (test code = [place] [facility] [address] 1538) [id number] 13:20:00 Test Item Value Reference Range Interpretation Comments PARTIAL THROMBOPLASTIN TIME 68.4 seconds 22.5-36.0 H (BEAKER) (test code = 760) BASIC METABOLIC [id number] 10:36:00 Test Item Value Reference Range Interpretation [...] NOT APPLICABLE FOR DIALYSIS PATIEN TS. POCT-GLUCOSE [id number] 07:43:00 Test Item Value Reference Range Interpretation Comments POC-GLUCOSE METER 84 mg/dL 70-[address] [facility] 6720 ([facility]) (test code = [place] [facility] [address] 1538) [id number] 06:52:00 Test Item Value Reference Range Interpretation Comments PARTIAL THROMBOPLASTIN TIME 76.5 seconds 22.5-36.0 H (BEAKER) (test code = 760) PROTHROMBIN [id number] 06:51:00 Test Item Value Reference Range Interpretation Comments PROTIME ([facility]) (test code = 16.5 seconds 11.7-14.7 H [...] 0-1 PERCENT (BEAKER) (test code = 2801) [id number] 00:11:00 Test Item Value Reference Range Interpretation Comments PARTIAL THROMBOPLASTIN TIME 59.7 seconds 22.5-36.0 H (BEAKER) (test code = 760) POCT-GLUCOSE [id number] 21:33:00 Test Item Value Reference Range Interpretation Comments POC-GLUCOSE METER 113 mg/dL 70-[address] [facility] 67 (BEAKER) (test code = [place] 1538) [address] POCT-GLUCOSE [id number] 18:08:00 Test Item Value Reference Range Interpretation Comments POC-GLUCOSE METER 128 mg/dL 70-110 H TESTED AT [place] [address] ([facility]) (test code = [place] Paul [facility] 1538) [address] [id number] 16:51:00 Test Item Value Reference Range Interpretation Comments PARTIAL THROMBOPLASTIN TIME 71.6 seconds 22.5-36.0 H (BEAKER) (test code = 760) POCT-GLUCOSE [id number] 12:39:00 Test Item Value Reference Range Interpretation Comments POC-GLUCOSE METER 124 mg/dL 70-110 H TESTED AT [place] [address] ([facility]) (test code = [place] [facility] 1538) [address] [id number] 09:07:00 Test Item Value Reference Range Interpretation Comments PARTIAL THROMBOPLASTIN TIME 96.6 seconds 22.5-36.0 H (BEAKER) (test code = 760) POCT-GLUCOSE [id number] 07:48:00 Test Item Value Reference Range Interpretation Comments POC-GLUCOSE METER 105 mg/dL 70-110 TESTED AT [place] [address] ([facility]) (test code = [facility] Humberto [facility] 1538) [address] BASIC METABOLIC [id number] 01:54:00 Test Item Value Reference Range Interpretation [...] S NOT APPLICABLE FOR DIALYSIS PATIEN TS. [id number] 01:37:00 Test Item Value Reference Range Interpretation Comments PARTIAL THROMBOPLASTIN TIME 53.4 seconds 22.5-36.0 H (BEAK[facility]) (test code = 760) PROTHROMBIN [id number] 01:36:00 Test Item Value Reference Range Interpretation [...] PERCENT (BEAKER) (test code = 2801) POCT-GLUCOSE [id number] 21:57:00 Test Item Value Reference Range Interpretation Comments POC-GLUCOSE METER 165 mg/dL 70-110 H TESTED AT [place] [address] ([facility]) (test code = [facility] 1538) [address] [id number] 18:46:00 Test Item Value Reference Range Interpretation Comments PARTIAL THROMBOPLASTIN TIME 39.0 seconds 22.5-36.0 H ([facility]) (test code = 760) POCT-GLUCOSE [id number] 17:51:00 Test Item Value Reference Range Interpretation Comments POC-GLUCOSE METER 157 mg/dL 70-110 H TESTED AT [place] [address] ([facility]) (test code = [facility] 1538) [address] POCT-GLUCOSE [id number] 17:09:00 Test Item Value Reference Range Interpretation Comments POC-GLUCOSE METER 162 mg/dL 70-110 H TESTED AT [place] [address] ([facility]) (test code = [facility] 1538) [address] [id number] 16:07:00 Test Item Value Reference Range Interpretation Comments PARTIAL THROMBOPLASTIN TIME 117.0 seconds 22.5-36.0 H ([facility]) (test code = 760) POCT-GLUCOSE [id number] 13:28:00 Test Item Value Reference Range Interpretation Comments POC-GLUCOSE METER 88 mg/dL 70-[address] [facility] 67 ([facility]) (test code = [place] [facility] [address] 1538) [id number] 09:17:00 Test Item Value Reference Range Interpretation Comments PARTIAL THROMBOPLASTIN TIME 71.7 seconds 22.5-36.0 H (AKER) (test code = 760) POCT-GLUCOSE [id number] 08:07:00 Test Item Value Reference Range Interpretation Comments POC-GLUCOSE METER 137 mg/dL 70-[address] [facility] 6720 ([facility]) (test code = [place] [facility] 1538) [address] [id number] 02:27:00 Test Item Value Reference Range Interpretation Comments PARTIAL THROMBOPLASTIN TIME 62.4 seconds 22.5-36.0 H ([facility]) (test code = 760) PROTHROMBIN [id number] 02:26:00 Test Item Value Reference Range Interpretation Comments PROTIME ([facility]) (test code = 20.0 seconds 11.7-14.7 H 759) INR ([facility]) (test code = 370) 1.7 <=5.9 RECOMMENDED COUMADIN/WARFARIN INR THERAPY RANGESSTANDARD DOSE: 2.0 - 3.0 Includes: PROPHYLAXIS forvenous thrombosis, systemic embolization; TREATMENT for venous thrombosis and/or pulmonary embolus.HIGH RISK: Target INR is 2.5-3.5 for patients with mechanical heart valves.BASIC METABOLIC [id number] 02:02:00 Test Item Value Reference Range Interpretation [...] PATIEN TS. CBC W/PLT COUNT & AUTO [id number] 01:42:00 Test Item Value Reference Range Interpretation [...] IMMATURE GRANULOCYTES-RELATIVE 2 % 0-1 H PERCENT ([facility]) (test code = 2801) POCT-GLUCOSE [id number] 21:12:00 Test Item Value Reference Range Interpretation Comments POC-GLUCOSE METER 199 mg/dL 70-110 H TESTED AT [place] [address] ([facility]) (test code = [facility] 1538) [address] POCT-GLUCOSE [id number] 17:39:00 Test Item Value Reference Range Interpretation Comments POC-GLUCOSE METER 145 mg/dL 70-110 H TESTED AT [place] [address] ([facility]) (test code = [facility] 1538) [address] [id number] 17:33:00 Test Item Value Reference Range Interpretation Comments PARTIAL THROMBOPLASTIN TIME 47.3 seconds 22.5-36.0 H ([facility]) (test code = 760) POCT-GLUCOSE [id number] 12:53:00 Test Item Value Reference Range Interpretation Comments POC-GLUCOSE METER 203 mg/dL 70-110 H TESTED AT [place] [address] ([facility]) (test code = [facility] 1538) [address] POCT-GLUCOSE [id number] 08:28:00 Test Item Value Reference Range Interpretation Comments POC-GLUCOSE METER 98 mg/dL 70-110 TESTED AT [place] [address] ([facility]) (test code = [facility] [address] 1538) BASIC METABOLIC [id number] 05:52:00 Test Item Value Reference Range Interpretation [...] NOT APPLICABLE FOR DIALYSIS PATIEN TS. PROTHROMBIN [id number] 05:51:00 Test Item Value Reference Range Interpretation [...] PERCENT (BEAKER) (test code = 2801) POCT-GLUCOSE [id number] 20:54:00 Test Item Value Reference Range Interpretation Comments POC-GLUCOSE METER 126 mg/dL 70-110 H TESTED AT [place] [address] ([facility]) (test code = [place] [facility] 1538) [address] POCT-GLUCOSE [id number] 18:47:00 Test Item Value Reference Range Interpretation Comments POC-GLUCOSE METER 70 mg/dL 70-[address] [facility] 6720 ([facility]) (test code = [facility] Humberto [facility] [address] 1538) POCT-GLUCOSE [id number] 13:25:00 Test Item Value Reference Range Interpretation Comments POC-GLUCOSE METER 120 mg/dL 70-110 H TESTED AT [place] [address] ([facility]) (test code = [facility] Humberto [facility] 1538) [address] POCT-GLUCOSE [id number] 09:32:00 Test Item Value Reference Range Interpretation Comments POC-GLUCOSE METER 104 mg/dL 70-[address] [facility] 6720 (BEAKER) (test code = [place] 1532) [address] BASIC METABOLIC [id number] 05:59:00 Test Item Value Reference Range Interpretation [...] NOT APPLICABLE FOR DIALYSIS PATIEN TS. PROTHROMBIN [id number] 05:20:00 Test Item Value Reference Range Interpretation [...] PERCENT (BEAKER) (test code = 2801) POCT-GLUCOSE [id number] 21:14:00 Test Item Value Reference Range Interpretation Comments POC-GLUCOSE METER 200 mg/dL 70-110 H TESTED AT [facility] 6720 (BEAKER) (test code = [facility] 1538) [address] POCT-GLUCOSE [id number] 17:34:00 Test Item Value Reference Range Interpretation Comments POC-GLUCOSE METER 143 mg/dL 70-110 H TESTED AT [place] [address] ([facility]) (test code = [facility] 1538) [address] POCT-GLUCOSE [id number] 12:04:00 Test Item Value Reference Range Interpretation Comments POC-GLUCOSE METER 160 mg/dL 70-110 H TESTED AT [place] [address] ([facility]) (test code = [facility] 1538) [address] POCT-GLUCOSE [id number] 08:08:00 Test Item Value Reference Range Interpretation Comments POC-GLUCOSE METER 154 mg/dL 70-110 H TESTED AT [place] [address] ([facility]) (test code = [facility] 1538) [address] BASIC METABOLIC [id number] 06:33:00 Test Item Value Reference Range Interpretation [...] S NOT APPLICABLE FOR DIALYSIS PATIEN TS. [id number] 06:01:00 Test Item Value Reference Range Interpretation Comments PARTIAL THROMBOPLASTIN TIME 117.2 seconds 22.5-36.0 H ([facility]) (test code = 760) PROTHROMBIN [id number] 05:56:00 Test Item Value Reference Range Interpretation [...] PERCENT ([facility]) (test code = 2801) POCT-GLUCOSE [id number] 21:37:00 Test Item Value Reference Range Interpretation Comments POC-GLUCOSE METER 121 mg/dL 70-110 H TESTED AT [place] [address] ([facility]) (test code = [facility] Arvinas [facility] 1538) [address] POCT-GLUCOSE [id number] 19:01:00 Test Item Value Reference Range Interpretation Comments POC-GLUCOSE METER 191 mg/dL 70-110 H TESTED AT [place] [address] ([facility]) (test code = [facility] Arvinas [facility] 1538) [address] [id number] 18:31:00 Test Item Value Reference Range Interpretation Comments PARTIAL THROMBOPLASTIN TIME 86.2 seconds 22.5-36.0 H ([facility]) (test code = 760) POCT-GLUCOSE [id number] 13:05:00 Test Item Value Reference Range Interpretation Comments POC-GLUCOSE METER 130 mg/dL 70-110 H TESTED AT [place] [address] ([facility]) (test code = [facility] Arvinas [facility] 1538) [address] RAD, CHEST, 1 VIEW, NON [id number] 12:22:00Reason for exam:->pleural effusionsShould this be performed at the bedside?->YesFINAL REPORT RAD, CHEST, 1 VIEW, NON DEPT INDICATION: pleural effusions COMPAR BRIAN: December 04, 2018 FINDINGS: Portable frontal view of the chest. IMPRESSION: Worsening interstitial edema. Stable right effusion tracking into the minor fissure. Persistent enlargement of the cardiac silhouette with stable surgical changes. Sternotomy wires are intact. Signed: JR Lc, Juliana MARQUEZeport Verified Date/Time: 12/07/2018 12:22:50 Reading Location: [facility] C013V Neuro Reading Room [id number] 11:39:00 Test Item Value Reference Range Interpretation Comments PARTIAL THROMBOPLASTIN TIME 100.1 seconds 22.5-36.0 H ([facility]) (test code = 760) BODY FLUID CULTURE + GRAM [id number] 10:13:00 Test Item Value Reference Range Interpretation Comments CULTURE ([facility]) (test No growth code = 1095) GRAM STAIN RESULT <1+ White blood cells ([facility]) (test code = seen 1123) GRAM STAIN RESULT No organisms seen ([facility]) (test code = 02089) POCT-GLUCOSE [id number] 08:51:00 Test Item Value Reference Range Interpretation Comments POC-GLUCOSE METER 90 mg/dL 70-[address] [facility] 6720 (BEAKER) (test code = [facility] [address] 1538) BASIC METABOLIC [id number] 07:31:00 Test Item Value Reference Range Interpretation [...] S NOT APPLICABLE FOR DIALYSIS PATIEN TS. [id number] 05:21:00 Test Item Value Reference Range Interpretation Comments PARTIAL THROMBOPLASTIN TIME 104.0 seconds 22.5-36.0 H ([facility]) (test code = 760) PROTHROMBIN [id number] 04:50:00 Test Item Value Reference Range Interpretation [...] 0-1 PERCENT ([facility]) (test code = 2801) [id number] 20:33:00 Test Item Value Reference Range Interpretation Comments PARTIAL THROMBOPLASTIN TIME 87.6 seconds 22.5-36.0 H ([facility]) (test code = 760) POCT-GLUCOSE [id number] 19:30:00 Test Item Value Reference Range Interpretation Comments POC-GLUCOSE METER 112 mg/dL 70-110 H TESTED AT [place] [address] ([facility]) [facility] 1538) [address] [id number] 13:55:00 Test Item Value Reference Range Interpretation Comments PARTIAL THROMBOPLASTIN TIME 85.9 seconds 22.5-36.0 H (BEAKER) (test code = 760) POCT-GLUCOSE [id number] 09:12:00 Test Item Value Reference Range Interpretation Comments POC-GLUCOSE METER 112 mg/dL 70-[address] [facility] 67 ([facility] (test [facility] = [facility] 1538) [address] BASIC METABOLIC [id number] 08:53:00 Test Item Value Reference Range Interpretation [...] I S NOT APPLICABLE FOR DIALYSIS PATIEN [id number] 06:04:00 Test Item Value Reference Range Interpretation Comments PARTIAL THROMBOPLASTIN TIME 105.5 seconds 22.5-36.0 H (BEAKER) (test code = 760) PROTHROMBIN [id number] 05:44:00 Test Item Value Reference Range Interpretation [...] (test code = 2801) CT, CHEST, WITHOUT [id number] 03:17:00FINAL REPORT EXAM: CT of the chest, [...] left pleural effusion with associated compressive atelectasis. Govtr-br-knvvrnnj loculated right pleural effusion with pleural thickening [...] to follow up is recommendedCardiomegaly. Signed: Raz aTylor Verified Date/Time: 12/06/2018 03:17:03 Reading Location: [address] [place] Body Reading Room POCT-GLUCOSE [id number] 21:22:00 Test Item Value Reference Range Interpretation Comments POC-GLUCOSE METER 171 mg/dL 70-[address] [facility] 67 ([facility]) (test [facility] = [facility] 1538) [address] POCT-GLUCOSE [id number] 17:58:00 Test Item Value Reference Range Interpretation Comments POC-GLUCOSE METER 128 mg/dL 70-[address] [facility] 6720 ([facility]) (test code = [facility] Paul [facility] 1538) [id number] POCT-GLUCOSE [id number] 13:24:00 Test Item Value Reference Range Interpretation Comments POC-GLUCOSE METER 129 mg/dL 70-[address] [facility] 6720 (BEAKER) (test code = [place] 1538) [id number] LACTATE DEHYDROGENASE (LDH)2018-12-05 13:14:00 Test Item Value Reference Range Interpretation Comments LACTATE DEHYDROGENASE (BEAKER) (test 291 U/L 125-220 H code = 635) [id number] 13:10:00 Test Item Value Reference Range Interpretation Comments PARTIAL THROMBOPLASTIN TIME 91.7 seconds 22.5-36.0 H (BEAKER) (test code = 760) POCT-GLUCOSE [id number] 08:19:00 Test Item Value Reference Range Interpretation Comments POC-GLUCOSE METER 106 mg/dL 70-[address] [facility] 6720 ([facility] (test code = [place] 1538) [address] BASIC METABOLIC [id number] 07:05:00 Test Item Value Reference Range Interpretation [...] S NOT APPLICABLE FOR DIALYSIS PATIEN TS. [id number] 06:32:00 Test Item Value Reference Range Interpretation [...] 2.5-3.5 for patients with mechanical heart valves.PROTHROMBIN TIME/[id number] 06:30:00 Test Item Value Reference Range Interpretation [...] 0-1 PERCENT (BEAKER) (test code = 2801) [id number] 00:40:00 Test Item Value Reference Range Interpretation Comments PARTIAL THROMBOPLASTIN TIME 63.1 seconds 22.5-36.0 H (BEAKER) (test code = 760) POCT-GLUCOSE [id number] 00:12:00 Test Item Value Reference Range Interpretation Comments POC-GLUCOSE METER 124 mg/dL 70-[address] [facility] 6720 (BEAKER) (test code = FOSTER Paul [facility] 1538) [address] HEPATITIS B SURFACE [id number] 22:54:00 Test Item Value Reference Range Interpretation Comments HEPATITIS B SURFACE ANTIGEN (2) Nonreactive Nonreactive (BEAKER) (test code = 2585) For chronic HD patients, draw HBsAg with each admission then every 30 days.BODY FLUID CELL COUNT WITH [id number] 20:34:00 Test Item Value Reference Range Interpretation Comments APPEARANCE FLUID (BEAKER) (test Cloudy Clear A code = 510) COLOR FLUID (BEAKER) (test code Brown Colorless, Straw A = 511) RBC FLUID (BEAKER) (test code = 39885 /cu mm <=1 H 513) ADJUSTED WBC [...] code = 2873) LACTATE DEHYDROGENASE (LDH), BODY [id number] 19:43:00 Test Item Value Reference Range Interpretation [...] local 1% lidocaine anesthesia was administered.A 4 Iranian catheter was advanced into the largest pocket of the septated pleural effusion and 300 ccof bloody fluid was removed. The catheter was removed without immediate complication. Samples were sent for analysis. IMPRESSION:Uncomplicated ultrasound-guided right thoracentesis with 300 cc fluid removed. Signed: Raimundo Kim MDReport Verified Date/Time: 12/04/2018 18:00:50 Reading Location: [facility] P006J Ultrasound Reading Room RAD, CHEST, 1 VIEW, NON [id number] 17:23:00Reason for exam:->s/p right thoracentesisShould this be [...] Verified Date/Time: 12/04/2018 17:23:06 Reading Location: [facility] Reading Room C. DIFFICILE GDH [id number] 10:01:00 Test Item Value Reference Range Interpretation Comments CDT TOXIN (test code Negative Negative = [id number]) CDT GDH ANTIGEN Positive Negative A C. difficile present but (test code = toxin not detec jayla. [id number]) Indicates colon ization with non-toxige ron strain [...] of kit performance was done by the [facility] Microbiology Lab prior to clinical use.[id number] 09:39:00 Test Item Value Reference Range Interpretation Comments PARTIAL THROMBOPLASTIN TIME 79.4 seconds 22.5-36.0 H (BEAKER) (test code = 760) OCCULT BLOOD, [id number] 05:59:00 Test Item Value Reference Range Interpretation Comments FECAL OCCULT BLOOD (BEAKER) (test Negative Negative code = 618) BASIC METABOLIC [id number] 02:50:00 Test Item Value Reference Range Interpretation [...] S NOT APPLICABLE FOR DIALYSIS PATIEN TS. [id number] 02:50:00 Test Item Value Reference Range Interpretation Comments PARTIAL THROMBOPLASTIN TIME 35.3 seconds 22.5-36.0 (BEAKER) (test code = 760) Prior to initiating heparinPROTHROMBIN TIME/[id number] 02:49:00 Test Item Value Reference Range Interpretation [...] acute neurological disease, and persistent tachyarrhythmia.HEPATIC FUNCTION [id number] 02:43:00 Test Item Value Reference Range Interpretation [...] 6-55 347) CBC W/PLT COUNT & AUTO [id number] 02:21:00 Test Item Value Reference Range Interpretation [...] PERCENT (BEAKER) (test code = 2801) POCT-GLUCOSE [id number] 21:22:00 Test Item Value Reference Range Interpretation Comments POC-GLUCOSE METER 192 mg/dL 70-[address] [facility] 6720 (BEAKER) (test code = FOSTER Paul [facility] 1538) [address] TROPONIN [id number] 17:09:00 Test Item Value Reference Range Interpretation [...] and persistent tachyarrhythmia.RAD, CHEST, 1 VIEW, NON [id number] 15:36:00Reason for exam:->SHORTNESS OF BREATHShould this be performed at the bedside?->YesFINAL REPORT AP chest HISTORY: Shortness of breath. COMPARISON: 11/03/2017. IMPRESSION: Cardiomegaly. Mild interstitial edema. Right effusion and adjacent atelectasis. No pneumothorax. Signed: Mandy Chairez MDReport Verified Date/Time: 12/03/2018 15:36:19 Reading Location: [address] Radiology Reading Room TROPONIN [id number] 14:48:00 Test Item Value Reference Range Interpretation [...] (BEAKER) (test code = 700) BASIC METABOLIC [id number] 14:40:00 Test Item Value Reference Range Interpretation [...] S NOT APPLICABLE FOR DIALYSIS PATIEN TS. [id number] 14:34:00 Test Item Value Reference Range Interpretation [...] (test code = 2801) RAD, CHEST, 2 [id number] 15:24:00Reason for Exam:->chronic Diastolic heart FailureFINAL REPORT [...] MDReport Verified Date/Time: 11/03/2018 15:24:42 Reading Location: [address] Radiology Reading Room MISCELLANEOUS LAB [id number] 08:22:00 Test Item Value Reference Range Interpretation Comments SCAN RESULT (test code = 5618800) PROTHROMBIN TIME/[id number] 08:37:00 Test Item Value Reference Range Interpretation Comments PROTIME (BEAKER) (test code = 24.8 seconds 11.7-14.7 H 759) INR (BEAKER) (test code = 370) 2.2 <=5.9 RECOMMENDED COUMADIN/WARFARIN INR THERAPY RANGESSTANDARD DOSE: 2.0 - 3.0 Includes: PROPHYLAXIS forvenous thrombosis, systemic embolization; TREATMENT for venous thrombosis and/or pulmonary embolus.HIGH RISK: Target INR is 2.5-3.5 for patients with mechanical heart valves.POCT-GLUCOSE [id number] 08:10:00 Test Item Value Reference Range Interpretation Comments POC-GLUCOSE METER 89 mg/dL 70-[address] [facility] 6720 (BEAKER) (test code = [place] [address] 7388) BASIC METABOLIC [id number] 06:29:00 Test Item Value Reference Range Interpretation [...] S NOT APPLICABLE FOR DIALYSIS PATIEN TS. [id number] 06:28:00 Test Item Value Reference Range Interpretation Comments MAGNESIUM (BEAKER) (test code = 1.8 mg/dL 1.6-2.6 627) [id number] 06:14:00 Test Item Value Reference Range Interpretation Comments PARTIAL THROMBOPLASTIN TIME 64.7 seconds 22.5-36.0 H (BEAKER) (test code = 760) CBC W/PLT COUNT & AUTO [id number] 05:58:00 Test Item Value Reference Range Interpretation [...] 417) IMMATURE GRANULOCYTES-RELATIVE 1 % 0-1 PERCENT ([facility]) (test code = 2801) POCT-GLUCOSE [id number] 21:14:00 Test Item Value Reference Range Interpretation Comments POC-GLUCOSE METER 135 mg/dL 70-110 H TESTED AT [place] [address] ([facility]) (test code = FOSTER Paul [facility] 1538) [address] [id number] 19:36:00 Test Item Value Reference Range Interpretation Comments PARTIAL THROMBOPLASTIN TIME 88.6 seconds 22.5-36.0 H ([facility]) (test code = 760) POCT-GLUCOSE [id number] 18:27:00 Test Item Value Reference Range Interpretation Comments POC-GLUCOSE METER 88 mg/dL 70-110 TESTED AT [place] [address] ([facility]) (test code = FOSTER Paul [facility] [address] 1538) POCT-GLUCOSE [id number] 12:05:00 Test Item Value Reference Range Interpretation Comments POC-GLUCOSE METER 92 mg/dL 70-110 TESTED AT [place] [address] ([facility]) (test code = FOSTER Paul [facility] [address] 1538) [id number] 11:46:00 Test Item Value Reference Range Interpretation Comments PARTIAL THROMBOPLASTIN TIME 74.3 seconds 22.5-36.0 H ([facility]) (test code = 760) POCT-GLUCOSE [id number] 10:36:00 Test Item Value Reference Range Interpretation Comments POC-GLUCOSE METER 101 mg/dL 70-110 TESTED AT [place] [address] ([facility]) (test code = FOSTER Paul [facility] 1538) [address] POCT-GLUCOSE [id number] 07:10:00 Test Item Value Reference Range Interpretation Comments POC-GLUCOSE METER 92 mg/dL 70-110 TESTED AT [place] [address] ([facility]) (test code = MARIA GNJ Humberto [facility] [address] 1538) PROTHROMBIN [id number] 01:41:00 Test Item Value Reference Range Interpretation Comments PROTIME ([facility]) (test code = 22.8 seconds 11.7-14.7 H 759) INR ([facility]) (test code = 370) 2.0 <=5.9 RECOMMENDED COUMADIN/WARFARIN INR THERAPY RANGESSTANDARD DOSE: 2.0 - 3.0 Includes: PROPHYLAXIS forvenous thrombosis, systemic embolization; TREATMENT for venous thrombosis and/or pulmonary embolus.HIGH RISK: Target INR is 2.5-3.5 for patients with mechanical heart valves.While on warfarin.[id number] 01:41:00 Test Item Value Reference Range Interpretation Comments PARTIAL THROMBOPLASTIN TIME 52.3 seconds 22.5-36.0 H (BEAKER) (test code = 760) While on warfarin.BASIC METABOLIC [id number] 01:37:00 Test Item Value Reference Range Interpretation [...] S NOT APPLICABLE FOR DIALYSIS PATIEN TS. [id number] 01:32:00 Test Item Value Reference Range Interpretation Comments MAGNESIUM (BEAKER) (test code = 1.8 mg/dL 1.6-2.6 627) CBC W/PLT COUNT & AUTO [id number] 01:18:00 Test Item Value Reference Range Interpretation [...] 0-1 PERCENT (BEAKER) (test code = 2801) [id number] 23:23:00 Test Item Value Reference Range Interpretation Comments PARTIAL THROMBOPLASTIN TIME 125.2 seconds 22.5-36.0 H (BEAKER) (test code = 760) POCT-GLUCOSE [id number] 21:19:00 Test Item Value Reference Range Interpretation Comments POC-GLUCOSE METER 165 mg/dL 70-[address] [facility] 67 ([facility]) (test code = [place] 1538) [address] POCT-GLUCOSE [id number] 18:34:00 Test Item Value Reference Range Interpretation Comments POC-GLUCOSE METER 92 mg/dL 70-110 TESTED AT [place] [address] ([facility]) (test code = FOSTER Paul [facility] [address] 1538) [id number] 17:17:00 Test Item Value Reference Range Interpretation Comments PARTIAL THROMBOPLASTIN TIME 75.2 seconds 22.5-36.0 H ([facility]) (test code = 760) POCT-GLUCOSE [id number] 12:48:00 Test Item Value Reference Range Interpretation Comments POC-GLUCOSE METER 105 mg/dL 70-110 TESTED AT [place] [address] ([facility]) (test code = FOSTER Paul [facility] 1538) [address] RAD, CHEST, 1 VIEW, NON [id number] 11:00:00Reason for exam:->eval right effusionShould this be performed at the bedside?->YesFINAL REPORT Comparison: 08/15/2018 TECHNIQUE: Single view of the chest FINDINGS: Small to moderate right pleural effusion is stable. Small left pleural effusion may be slightly increased. Vascular congestion seen. No other significant change. Signed: Kyle Rome MDReport Verified Date/Time: 08/18/2018 11:00:36 Reading Location: [facility] Radiology Reading Room Electronicallysigned by: KYLE ROME M.D. on 08/18/2018 11:00 [id number] 09:48:00 Test Item Value Reference Range Interpretation Comments PARTIAL THROMBOPLASTIN TIME 48.8 seconds 22.5-36.0 H ([facility]) (test code = 760) POCT-GLUCOSE [id number] 07:37:00 Test Item Value Reference Range Interpretation Comments POC-GLUCOSE METER 96 mg/dL 70-[address] [facility] 67 ([facility]) (test code = FOSTER aPul [facility] [address] 1538) BASIC METABOLIC [id number] 02:24:00 Test Item Value Reference Range Interpretation [...] S NOT APPLICABLE FOR DIALYSIS PATIEN TS. [id number] 02:22:00 Test Item Value Reference Range Interpretation Comments MAGNESIUM (BEAKER) (test code = 1.7 mg/dL 1.6-2.6 627) [id number] 02:15:00 Test Item Value Reference Range Interpretation Comments PARTIAL THROMBOPLASTIN TIME 98.9 seconds 22.5-36.0 H (BEAKER) (test code = 760) PROTHROMBIN TIME/[id number] 02:13:00 Test Item Value Reference Range Interpretation [...] PERCENT (BEAKER) (test code = 2801) POCT-GLUCOSE [id number] 21:51:00 Test Item Value Reference Range Interpretation Comments POC-GLUCOSE METER 98 mg/dL 70-110 TESTED AT [place] [address] ([facility] ([facility] [address] 1538) [id number] 18:51:00 Test Item Value Reference Range Interpretation Comments PARTIAL THROMBOPLASTIN TIME 56.1 seconds 22.5-36.0 H (BEAKER) (test code = 760) [id number] 17:06:00 Test Item Value Reference Range Interpretation Comments PARTIAL THROMBOPLASTIN TIME 121.9 seconds 22.5-36.0 H (BEAKER) (test code = 760) POCT-GLUCOSE [id number] 16:46:00 Test Item Value Reference Range Interpretation Comments POC-GLUCOSE METER 135 mg/dL 70-110 H TESTED AT [place] [address] ([facility]) (test code = [facility] 1538) [address] POCT-GLUCOSE [id number] 13:28:00 Test Item Value Reference Range Interpretation Comments POC-GLUCOSE METER 96 mg/dL 70-110 TESTED AT [place] [address] ([facility]) (test code = [facility] [address] 1538) [id number] 09:15:00 Test Item Value Reference Range Interpretation Comments PARTIAL THROMBOPLASTIN TIME 58.1 seconds 22.5-36.0 H (BEAKER) (test code = 760) BASIC METABOLIC [id number] 07:31:00 Test Item Value Reference Range Interpretation [...] S NOT APPLICABLE FOR DIALYSIS PATIEN TS. [id number] 07:19:00 Test Item Value Reference Range Interpretation Comments PHOSPHORUS (BEAKER) (test code = 3.7 mg/dL 2.3-4.7 604) [id number] 07:19:00 Test Item Value Reference Range Interpretation Comments MAGNESIUM (BEAKER) (test code = 1.7 mg/dL 1.6-2.6 627) [id number] 07:07:00 Test Item Value Reference Range Interpretation Comments PARTIAL THROMBOPLASTIN TIME 124.4 seconds 22.5-36.0 H (BEAKER) (test code = 760) PROTHROMBIN TIME/[id number] 07:02:00 Test Item Value Reference Range Interpretation [...] 0-1 PERCENT (BEAKER) (test code = 2801) [id number] 23:01:00 Test Item Value Reference Range Interpretation Comments PARTIAL THROMBOPLASTIN TIME 46.5 seconds 22.5-36.0 H ([facility]) (test code = 760) POCT-GLUCOSE [id number] 22:45:00 Test Item Value Reference Range Interpretation Comments POC-GLUCOSE METER 144 mg/dL 70-[address] [facility] 6720 ([facility]) (test code = FOSTER Paul [facility] 1538) [address] [id number] 15:02:00 Test Item Value Reference Range Interpretation Comments PARTIAL THROMBOPLASTIN TIME 56.1 seconds 22.5-36.0 H ([facility]) (test code = 760) POCT-GLUCOSE [id number] 14:39:00 Test Item Value Reference Range Interpretation Comments POC-GLUCOSE METER 189 mg/dL 70-110 H TESTED AT [place] [address] ([facility]) (test code = [facility] Humberto [facility] 1538) [address] HIV-1 PCR, [id number] 13:58:00 Test Item Value Reference Range Interpretation Comments HIV-1 NUMERIC RESULT ([facility]) (test 170 Cp/mL <20 H code = 2704) This test uses a Real-Time Polymerase Chain Reaction (RT-PCR) methodology to detect a highly conserved region of the HIV-1 gag gene and was performed using the ERICH AmpliPrep/ERICH TaqMan HIV-1 test kit version 2.0 ([employer]Reportable range for this assay is 20 - 10,000,000 copies per mL (1.3 - 7.0 Log copies/mL).[id number] 12:54:00 Test Item Value Reference Range Interpretation Comments PARTIAL THROMBOPLASTIN TIME 143.6 seconds 22.5-36.0 H ([facility]) (test code = 760) [id number] 10:00:00Medical Cytology Report Case: [id number] Authorizing Provider: Alison Solano MD Collected: 08/13/2018 8767 Ordering Location: [address] Received: 08/14/2018 0987 Service Pathologist: Yamil Hamm MD Specimen: Pleural, Right RIGHT PLEURAL FLUID (CYTOSPINS AND CELL BLOCK): - NO MALIGNANT CELLS IDENTIFIED (SEE COMMENT) Signing Pathologist Direct Phone Line: [phone] signed by Yamil Hamm MD on 08/16/2018 [...] thoracentesis may be considered when fluid reaccumulates. [address], [address]2007, 33979, 27670 x 2Left pleural effusion, history of AIDS, Kaposi's sarcoma, hepatitis C.RIGHT PLEURAL FLUID 300 mls bloody; 4 cytospins, cell blockCollected: [id number]: [id number] interpretation of this case included the use of immunohistochemistry or special stains. Please see the immunohistochemistry results in the COMMENT section. Immunohistochemistry technical testing was performed at [facility], Pathology Laboratory where it was developed [...] as qualified toperform high complexity clinical laboratory testing.[facility], Department of Pathology, [address] [place] [address], [facility]wooEl [facility], Department of Pathology, [address] [place] [address], ZthzgqEl [facility], Department of Pathology, [address] [place], [place] [address], KZTH-GLUCOSE [id number] 08:29:00 Test Item Value Reference Range Interpretation Comments POC-GLUCOSE METER 96 mg/dL 70-110 TESTED AT [place] [address] ([facility]) (test code = [facility] [place] [id number] 1538) BODY FLUID CULTURE + GRAM [id number] 07:54:00 Test Item Value Reference Range Interpretation Comments CULTURE (BEAKER) (test code No growth = 1095) GRAM STAIN RESULT (BEAKER) <1+ WBCs (test code = 1123) GRAM STAIN RESULT (BEAKER) No organisms seen (test code = 08225) BASIC METABOLIC [id number] 06:30:00 Test Item Value Reference Range Interpretation [...] S NOT APPLICABLE FOR DIALYSIS PATIEN TS. [id number] 06:26:00 Test Item Value Reference Range Interpretation Comments MAGNESIUM (BEAKER) (test code = 1.6 mg/dL 1.6-2.6 627) [id number] 05:48:00 Test Item Value Reference Range Interpretation Comments PARTIAL THROMBOPLASTIN TIME 80.3 seconds 22.5-36.0 H (BEAKER) (test code = 760) While on warfarin.PROTHROMBIN TIME/[id number] 05:46:00 Test Item Value Reference Range Interpretation [...] valves.While on warfarin.CBC W/PLT COUNT & AUTO [id number] 05:28:00 Test Item Value Reference Range Interpretation [...] 0-1 PERCENT (BEAKER) (test code = 2801) [id number] 22:09:00 Test Item Value Reference Range Interpretation Comments PARTIAL THROMBOPLASTIN TIME 61.5 seconds 22.5-36.0 H (BEAKER) (test code = 760) RAD, CHEST, 1 VIEW, NON [id number] 20:20:00Reason for exam:->eval right effusionShould this be [...] Anderson Verified Date/Time: 08/15/2018 20:20:24 Reading Location: [facility] Radiology Reading Room POCT-GLUCOSE [id number] 19:05:00 Test Item Value Reference Range Interpretation Comments POC-GLUCOSE METER 87 mg/dL 70-[address] [facility] 6720 ([facility]) (test code = [place]ER Paul [facility] [address] 1538) POCT-GLUCOSE [id number] 13:12:00 Test Item Value Reference Range Interpretation Comments POC-GLUCOSE METER 162 mg/dL 70-[address] [facility] 6720 ([facility]) (test code = FOSTER Paul [facility] 1538) [address] [id number] 12:48:00 Test Item Value Reference Range Interpretation Comments PARTIAL THROMBOPLASTIN TIME 89.1 seconds 22.5-36.0 H (BEAKER) (test code = 760) POCT-GLUCOSE [id number] 09:58:00 Test Item Value Reference Range Interpretation Comments POC-GLUCOSE METER 229 mg/dL 70-[address] [facility] 6720 (BEAKER) (test code = [place] 1538) [address] BASIC METABOLIC [id number] 05:40:00 Test Item Value Reference Range Interpretation [...] PATIEN TS. CBC W/PLT COUNT & AUTO [id number] 05:38:00 Test Item Value Reference Range Interpretation [...] 0-1 PERCENT (BEAKER) (test code = 2801) [id number] 05:28:00 Test Item Value Reference Range Interpretation Comments MAGNESIUM (BEAKER) (test code = 1.8 mg/dL 1.6-2.6 627) [id number] 04:47:00 Test Item Value Reference Range Interpretation Comments PARTIAL THROMBOPLASTIN TIME 60.9 seconds 22.5-36.0 H (BEAKER) (test code = 760) PROTHROMBIN [id number] 04:46:00 Test Item Value Reference Range Interpretation Comments PROTIME (BEAKER) (test code = 17.9 seconds 11.7-14.7 H 759) INR ([facility]) (test code = 370) 1.5 <=5.9 RECOMMENDED COUMADIN/WARFARIN INR THERAPY RANGESSTANDARD DOSE: 2.0 - 3.0 Includes: PROPHYLAXIS forvenous thrombosis, systemic embolization; TREATMENT for venous thrombosis and/or pulmonary embolus.HIGH RISK: Target INR is 2.5-3.5 for patients with mechanical heart valves.[id number] 20:56:00 Test Item Value Reference Range Interpretation Comments PARTIAL THROMBOPLASTIN TIME 52.1 seconds 22.5-36.0 H ([facility]) (test code = 760) CT, CHEST, WITHOUT [id number] 19:06:00S/p fall in Jul--> right effusion, tapped [...] Tapia Verified Date/Time: 08/14/2018 19:06:09 Reading Location: [address] Reading Room APTT 2018-08-14 12:40:00 Test Item Value Reference Range Interpretation Comments PARTIAL THROMBOPLASTIN TIME 48.4 seconds 22.5-36.0 H (BEAKER) (test code = 760) CD4 T CELL [id number] 11:15:00 Test Item Value Reference Range Interpretation [...] 107-698 L (BEAKER) (test code = 3491) [id number] 10:48:00 Test Item Value Reference Range Interpretation Comments PHOSPHORUS (BEAKER) (test code = 5.2 mg/dL 2.3-4.7 H 604) BASIC METABOLIC [id number] 07:13:00 Test Item Value Reference Range Interpretation [...] S NOT APPLICABLE FOR DIALYSIS PATIEN TS. [id number] 07:11:00 Test Item Value Reference Range Interpretation Comments MAGNESIUM (BEAKER) (test code = 1.8 mg/dL 1.6-2.6 627) [id number] 07:00:00 Test Item Value Reference Range Interpretation Comments PARTIAL THROMBOPLASTIN TIME 59.2 seconds 22.5-36.0 H (BEAKER) (test code = 760) PROTHROMBIN TIME/[id number] 06:59:00 Test Item Value Reference Range Interpretation [...] 0-1 PERCENT (BEAKER) (test code = 2801) [id number] 00:30:00 Test Item Value Reference Range Interpretation Comments PARTIAL THROMBOPLASTIN TIME 56.7 seconds 22.5-36.0 H (BEAKER) (test code = 760) BODY FLUID CELL COUNT WITH [id number] 19:28:00 Test Item Value Reference Range Interpretation Comments APPEARANCE FLUID (BEAKER) (test Cloudy Clear A code = 510) COLOR FLUID (BEAKER) (test code Red Colorless, Straw A = 511) RBC FLUID (BEAKER) (test code = 45184 /cu mm <=1 H 513) ADJUSTED WBC [...] Tube (test code = 2873) ALBUMIN, BODY [id number] 18:40:00 Test Item Value Reference Range Interpretation Comments ALBUMIN FLUID (BEAKER) (test code = 2.1 gm/dL 501) Reference Range: No Normals Assay performance has not been validated for this type of specimen.LACTATE DEHYDROGENASE (LDH), BODY [id number] 18:40:00 Test Item Value Reference Range Interpretation [...] 125-220 H code = 635) HEPATIC FUNCTION [id number] 18:40:00 Test Item Value Reference Range Interpretation [...] 6-55 347) RAD, CHEST, 1 VIEW, NON [id number] 17:56:00Reason for exam:->post Right thoracentesisShould this be [...] [place] Verified Date/Time: 08/13/2018 17:56:18 Reading Location: [address] Consult Reading Room U/S, [id number] 16:22:00Reason for exam:->shortness of breath, recurrent right pleural effusionShould this be performed at the bedside?->NoFINAL REPORT Ultrasound guided right thoracentesis, 08/13/2018. Clinical History: Right pleural effusion. Modality: Ultrasound. Sedation: None. Distribution Operations Supervisor: Gini. Keymodule Assembly Machine Tender: None. Estimated Blood Loss: 1cc Specimen: 1600 [...] Musa Verified Date/Time: 08/13/2018 16:22:16 Reading Location: [place] [id number] Ultrasound Reading Room [id number] 07:18:00 Test Item Value Reference Range Interpretation Comments MAGNESIUM (BEAKER) (test code = 2.0 mg/dL 1.6-2.6 627) BASIC METABOLIC [id number] 07:18:00 Test Item Value Reference Range Interpretation [...] PATIEN TS. RAD, CHEST, 1 VIEW, NON [id number] 06:25:00Reason for exam:->SOBShould this be performed at [...] Taylor Verified Date/Time: 08/13/2018 06:25:21 Reading Location: [facility] Transitional Re ading Room [id number] 05:49:00 Test Item Value Reference Range Interpretation Comments PARTIAL THROMBOPLASTIN TIME 42.0 seconds 22.5-36.0 H (BEAKER) (test code = 760) PROTHROMBIN TIME/[id number] 05:48:00 Test Item Value Reference Range Interpretation [...] PERCENT (BEAKER) (test code = 2801) POCT-GLUCOSE [id number] 18:30:00 Test Item Value Reference Range Interpretation Comments POC-GLUCOSE METER 80 mg/dL 70-[address] [facility] 6720 [facility] (test code = [place] [address] 1538) RAD, CHEST, 1 VIEW, NON [id number] 13:46:00Reason for exam:->evaluate pleural effusionShould this be performed at the bedside?->YesFINAL REPORT Comparison: 08/02/2018 TECHNIQUE: Single view of the chest FINDINGS Bilateral interstitial and airspace opacities are stable. Bilateral pleural effusions seen, right greater than left. No gross new lung parenchymal changes. Post surgical changes in the mediastinum. IMPRESSION: No significant interval change. Signed: Kyle Romeeport Verified Date/Time: 08/06/2018 13:46:20 Reading Location: [facility] Radiology Reading Room [id number] 09:33:00 Test Item Value Reference Range Interpretation Comments PARTIAL THROMBOPLASTIN TIME 113.6 seconds 22.5-36.0 H (BEAKER) (test code = 760) [id number] 06:48:00 Test Item Value Reference Range Interpretation [...] heart valves.While on warfarin.While on warfarin.BASIC METABOLIC [id number] 06:45:00 Test Item Value Reference Range Interpretation [...] NOT APPLICABLE FOR DIALYSIS PATIEN TS. PROTHROMBIN [id number] 06:43:00 Test Item Value Reference Range Interpretation [...] WBC 0-0 (BEAKER) (test code = 413) [id number] 20:40:00 Test Item Value Reference Range Interpretation Comments PARTIAL THROMBOPLASTIN TIME 81.7 seconds 22.5-36.0 H (BEAKER) (test code = 760) [id number] 14:05:00 Test Item Value Reference Range Interpretation Comments PARTIAL THROMBOPLASTIN TIME 91.5 seconds 22.5-36.0 H (BEAKER) (test code = 760) BASIC METABOLIC [id number] 07:02:00 Test Item Value Reference Range Interpretation [...] S NOT APPLICABLE FOR DIALYSIS PATIEN TS. [id number] 06:47:00 Test Item Value Reference Range Interpretation [...] valves.Ok to add onOk to add onPROTHROMBIN [id number] 06:46:00 Test Item Value Reference Range Interpretation [...] 0-1 PERCENT (BEAKER) (test code = 2801) [id number] 16:22:00 Test Item Value Reference Range Interpretation Comments PARTIAL THROMBOPLASTIN TIME 76.1 seconds 22.5-36.0 H (BEAKER) (test code = 760) BODY FLUID CULTURE + GRAM [id number] 09:10:00 Test Item Value Reference Range Interpretation Comments CULTURE (BEAKER) (test code No growth = 1095) GRAM STAIN RESULT (BEAKER) <1+ WBCs (test code = 1123) GRAM STAIN RESULT (BEAKER) No organisms seen (test code = 07775) CBC W/PLT COUNT & AUTO [id number] 07:23:00 Test Item Value Reference Range Interpretation [...] (BEAKER) (test code = 413) BASIC METABOLIC [id number] 07:05:00 Test Item Value Reference Range Interpretation [...] S NOT APPLICABLE FOR DIALYSIS PATIEN TS. [id number] 06:53:00 Test Item Value Reference Range Interpretation [...] heart valves.Ok to add onOk to add [id number] 06:53:00 Test Item Value Reference Range Interpretation Comments PARTIAL THROMBOPLASTIN TIME 70.3 seconds 22.5-36.0 H (BEAKER) (test code = 760) PROTHROMBIN [id number] 06:52:00 Test Item Value Reference Range Interpretation Comments PROTIME (BEAKER) (test code = 17.5 seconds 11.7-14.7 H 759) INR (BEAKER) (test code = 370) 1.4 <=5.9 RECOMMENDED COUMADIN/WARFARIN INR THERAPY RANGESSTANDARD DOSE: 2.0 - 3.0 Includes: PROPHYLAXIS forvenous thrombosis, systemic embolization; TREATMENT for venous thrombosis and/or pulmonary embolus.HIGH RISK: Target INR is 2.5-3.5 for patients with mechanical heart valves.PROTHROMBIN [id number] 06:51:00 Test Item Value Reference Range Interpretation Comments PROTIME (BEAKER) (test code = 17.7 seconds 11.7-14.7 H 759) INR (BEAKER) (test code = 370) 1.5 <=5.9 RECOMMENDED COUMADIN/WARFARIN INR THERAPY RANGESSTANDARD DOSE: 2.0 - 3.0 Includes: PROPHYLAXIS forvenous thrombosis, systemic embolization; TREATMENT for venous thrombosis and/or pulmonary embolus.HIGH RISK: Target INR is 2.5-3.5 for patients with mechanical heart valves.While on warfarin.[id number] 22:47:00 Test Item Value Reference Range Interpretation Comments PARTIAL THROMBOPLASTIN TIME 73.6 seconds 22.5-36.0 H (BEAKER) (test code = 760) [id number] 13:08:00 Test Item Value Reference Range Interpretation Comments PARTIAL THROMBOPLASTIN TIME 49.2 seconds 22.5-36.0 H (BEAKER) (test code = 760) BASIC METABOLIC [id number] 06:56:00 Test Item Value Reference Range Interpretation [...] S NOT APPLICABLE FOR DIALYSIS PATIEN TS. [id number] 06:56:00 Test Item Value Reference Range Interpretation Comments PARTIAL THROMBOPLASTIN TIME 67.5 seconds 22.5-36.0 H (BEAKER) (test code = 760) [id number] 06:45:00 Test Item Value Reference Range Interpretation [...] valves.Ok to add onOk to add onPROTHROMBIN [id number] 06:44:00 Test Item Value Reference Range Interpretation [...] /100 WBC 0-0 (test code = 413) [id number] 02:18:00 Test Item Value Reference Range Interpretation Comments PARTIAL THROMBOPLASTIN TIME 67.1 seconds 22.5-36.0 H (BEAKER) (test code = 760) [id number] 18:56:00 Test Item Value Reference Range Interpretation Comments PARTIAL THROMBOPLASTIN TIME 72.5 seconds 22.5-36.0 H (BEAKER) (test code = 760) POCT-GLUCOSE [id number] 13:08:00 Test Item Value Reference Range Interpretation Comments POC-GLUCOSE METER 121 mg/dL 70-[address] [facility] 6720 (BEAKER) (test code = [place] 1538) [address] [id number] 12:07:00 Test Item Value Reference Range Interpretation Comments PARTIAL THROMBOPLASTIN TIME 50.7 seconds 22.5-36.0 H (BEAKER) (test code = 760) Ok to add onPROTHROMBIN [id number] 12:05:00 Test Item Value Reference Range Interpretation [...] = 413) RAD, CHEST, 1 VIEW, NON [id number] 11:24:00Reason for exam:->pleural effusionShould this be performed at the bedside?->YesFINAL REPORT AP chest HISTORY: Pleural effusion COMPARISON: 08/01/2018 IMPRESS ION:Intact skeleton. Cardiomegaly. Moderate interstitial edema. Moderate right and small left effusions. No pneumothorax. Signed: Mandy Chairez MDReport Verified Date/Time: 08/02/2018 11:24:33 Reading Location: [address] Ortho Consult Reading Room BASIC METABOLIC [id number] 02:55:00 Test Item Value Reference Range Interpretation [...] S NOT APPLICABLE FOR DIALYSIS PATIEN TS. [id number] 02:39:00 Test Item Value Reference Range Interpretation Comments PARTIAL THROMBOPLASTIN TIME 51.6 seconds 22.5-36.0 H (BEAKER) (test code = 760) CBC W/PLT COUNT & AUTO [id number] 02:30:00 Test Item Value Reference Range Interpretation [...] = 2801) BODY FLUID CELL COUNT WITH [id number] 21:13:00 Test Item Value Reference Range Interpretation Comments APPEARANCE FLUID (BEAKER) (test Bloody Clear A code = 510) COLOR FLUID (BEAKER) (test code Sunil Colorless, Straw A = 511) RBC FLUID (BEAKER) (test code = 92198 /cu mm <=1 H 513) ADJUSTED WBC [...] Tube (test code = 2873) ALBUMIN, BODY [id number] 20:00:00 Test Item Value Reference Range Interpretation Comments ALBUMIN FLUID (BEAKER) (test code = 2.1 gm/dL 501) Reference Range: No Normals Assay performance has not been validated for this type of specimen.LACTATE DEHYDROGENASE (LDH), BODY [id number] 20:00:00 Test Item Value Reference Range Interpretation [...] of specimen.RAD, CHEST, PA OR AP, 1 [id number] 17:08:00Ultrasound Room 1Reason for exam:->s/p Right sided [...] [place] Verified Date/Time: 08/01/2018 17:08:13 Reading Location: [facility] Radiology Reading Room U/S, [id number] 17:03:00 Laterality?->RightReason for exam:->large pleural effusionFINAL REPORT HISTORY: Right pleural effusion Following informed written consent, the patient's right posterior chest wall was prepped and draped in the usual sterile manner. 2% lidocaine was given locally for anesthesia. No conscious sedation was administered. Vital signs were monitored and remained stable. Using ultrasound guidance and a 5 Iranian angiocatheter, access was gain ed to the [...] Seymour Verified Date/Time: 08/01/2018 17:03:15 Reading Location: [facility] B1 P006J Ultrasound Reading Room RAD, CHEST, 1 VIEW, NON [id number] 12:40:00Reason for exam:->pleural effusion; shortness of breathShould [...] MDReport Verified Date/Time: 08/01/2018 12:40:42 Reading Location: [facility] Radiology Reading Room APTT 2018-08-01 11:33:00 Test Item Value Reference Range Interpretation Comments PARTIAL THROMBOPLASTIN TIME 118.1 seconds 22.5-36.0 H (BEAKER) (test code = 760) BASIC METABOLIC [id number] 02:07:00 Test Item Value Reference Range Interpretation [...] S NOT APPLICABLE FOR DIALYSIS PATIEN TS. [id number] 01:55:00 Test Item Value Reference Range Interpretation [...] is 2.5-3.5 for patients with mechanical heart valves.[id number] 01:55:00 Test Item Value Reference Range Interpretation Comments PARTIAL THROMBOPLASTIN TIME 96.8 seconds 22.5-36.0 H (BEAKER) (test code = 760) CBC W/PLT COUNT & AUTO [id number] 01:38:00 Test Item Value Reference Range Interpretation [...] 0-1 PERCENT (BEAKER) (test code = 2801) [id number] 18:58:00 Test Item Value Reference Range Interpretation Comments PARTIAL THROMBOPLASTIN TIME 61.7 seconds 22.5-36.0 H (BEAKER) (test code = 760) [id number] 09:22:00 Test Item Value Reference Range Interpretation Comments PARTIAL THROMBOPLASTIN TIME 61.5 seconds 22.5-36.0 H (BEAKER) (test code = 760) BASIC METABOLIC [id number] 02:14:00 Test Item Value Reference Range Interpretation Comments SODIUM (BEAKER) 130 meq/L 136-145 L (test code = 381) POTASSIUM (BEAKER) 4.1 meq/L 3.5-5.1 (test code = 379) CHLORIDE (BEAKER) 93 meq/L 98-107 L (test code = 382) CO2 (BEAKER) (test 24 meq/L 29 code = 355) BLOOD UREA NITROGEN 39 [...] S NOT APPLICABLE FOR DIALYSIS PATIEN TS. [id number] 01:43:00 Test Item Value Reference Range Interpretation [...] is 2.5-3.5 for patients with mechanical heart valves.[id number] 01:43:00 Test Item Value Reference Range Interpretation Comments PARTIAL THROMBOPLASTIN TIME 62.7 seconds 22.5-36.0 H (BEAKER) (test code = 760) CBC W/PLT COUNT & AUTO [id number] 01:32:00 Test Item Value Reference Range Interpretation [...] 0-1 PERCENT (BEAKER) (test code = 2801) [id number] 18:38:00 Test Item Value Reference Range Interpretation Comments PARTIAL THROMBOPLASTIN TIME 38.9 seconds 22.5-36.0 H (BEAKER) (test code = 760) Prior to initiating heparinPLATELET [id number] 18:17:00 Test Item Value Reference Range Interpretation Comments PLATELET COUNT (BEAKER) (test 115 K/CU MM 150-450 L code = 756) RAD, CHEST, 2 [id number] 18:05:00Reason for exam:->sob and pleural effusionFINAL REPORT [...] Sykes MDReport Verified Date/Time: 07/30/2018 18:05:46Reading Location: [facility] C013W Consult Reading Room C METABOLIC [id number] 05:26:00 Test Item Value Reference Range Interpretation [...] S NOT APPLICABLE FOR DIALYSIS PATIEN TS. [id number] 05:25:00 Test Item Value Reference Range Interpretation [...] 2.5-3.5 for patients with mechanical heart valves.PROTHROMBIN [id number] 05:24:00 Test Item Value Reference Range Interpretation [...] (test code = 2801) HEPATITIS B SURFACE [id number] 12:09:00 Test Item Value Reference Range Interpretation Comments HEPATITIS B SURFACE ANTIGEN (2) Nonreactive Nonreactive (BEAKER) (test code = 2585) POCT-GLUCOSE [id number] 07:50:00 Test Item Value Reference Range Interpretation Comments POC-GLUCOSE METER 93 mg/dL 70-[address] [facility] 67 (BEAKER) (test code = [place] [facility] [address] 1538) [id number] 04:59:00 Test Item Value Reference Range Interpretation [...] for patients with mechanical heart valves.BASIC METABOLIC [id number] 04:59:00 Test Item Value Reference Range Interpretation [...] PATIEN TS. CBC W/PLT COUNT & AUTO [id number] 04:51:00 Test Item Value Reference Range Interpretation [...] (test code = 2801) AFB CULTURE + [id number] 16:13:00 Test Item Value Reference Range Interpretation Comments CULTURE (BEAKER) (test No acid-fast bacilli code = 1095) isolated in 42 days AFB SMEAR (BEAKER) No acid fast bacilli (test code = 994) seen AFB CULTURE + [id number] 16:13:00 Test Item Value Reference Range Interpretation Comments CULTURE (BEAKER) (test No acid-fast bacilli code = 1095) isolated in 42 days AFB SMEAR (BEAKER) No acid fast bacilli (test code = 994) seen FUNGUS CULTURE + [id number] 07:13:00 Test Item Value Reference Range Interpretation Comments CULTURE (BEAKER) (test No fungus isolated in code = 1095) 28 days FUNGUS SMEAR (BEAKER) No fungi seen (test code = 1406) FUNGUS CULTURE + [id number] 07:13:00 Test Item Value Reference Range Interpretation Comments CULTURE ([facility]) (test No fungus isolated in code = 1095) 28 days FUNGUS SMEAR ([facility]) No fungi seen (test code = 1406) TISSUE [id number] 19:17:00Surgical Pathology Report Case: [id number] Authorizing Provider: Juliana Martinez MD Collected: 05/23/2018 0825 Ordering Location: [facility] PERIOPERATIVE Received: 05/23/2018 0923 SERVICES Pathologist: Brigida Parks MD Specimen: SoftTissue, Other, LEFT GROIN - TISSUE BIOPSY SKIN AND SOFT TISSUE,GROIN,LEFT, BIOPSY: - ABSCESSES, GRANULOMAS AND CHRONIC INFLAMMATION - NEGATIVE FOR DYSPLASIA OR MALIGNANCY - AFB AND GMS STAINS ARE NEGATIVE (SEE COMMENT) Signing Pathologist Direct Phone Line: [phone] signed by Brigida Parks MD on 06/02/2018 at 7:17 PMCorrelation with culture studies is recommended.36444Xyfbdqoxn abscess groinLeft groin tissue biopsyReceived fresh labeled "soft tissue, other", description "left groin tissue biopsy" are two dark-porter, wrinkled,hair- bearing strips of skin measuring 1.5 and 2.6 cm in length, 0.3 cm in diameter and excised to a depth of 0.3 cm.Sectioning reveals no discrete masses.The specimen is entirely submitted in cassettesA1. DB/ewPOCT-GLUCOSE [id number] 08:51:00 Test Item Value Reference Range Interpretation Comments POC-GLUCOSE METER 101 mg/dL 70-[address] [facility] 6720 ([facility]) (test code = [place] 1538) [address] CBC W/PLT COUNT & AUTO [id number] 06:01:00 Test Item Value Reference Range Interpretation Comments WHITE BLOOD CELL COUNT ([facility]) 7.1 K/ L 3.5-10.5 (test code = 775) RED BLOOD CELL COUNT ([facility]) 3.50 M/ L 4.63-6.08 L (test code [...] PERCENT (BEAKER) (test code = 2801) PROTHROMBIN [id number] 05:51:00 Test Item Value Reference Range Interpretation Comments PROTIME (BEAKER) (test code = 25.9 seconds 11.7-14.7 H 759) INR (BEAKER) (test code = 370) 2.4 <=5.9 RECOMMENDED COUMADIN/WARFARIN INR THERAPY RANGESSTANDARD DOSE: 2.0 - 3.0 Includes: PROPHYLAXIS forvenous thrombosis, systemic embolization; TREATMENT for venous thrombosis and/or pulmonary embolus.HIGH RISK: Target INR is 2.5-3.5 for patients with mechanical heart valves.BASIC METABOLIC [id number] 05:46:00 Test Item Value Reference Range Interpretation [...] NOT APPLICABLE FOR DIALYSIS PATIEN TS. POCT-GLUCOSE [id number] 20:34:00 Test Item Value Reference Range Interpretation Comments POC-GLUCOSE METER 261 mg/dL 70-110 H TESTED AT [place] [address] ([facility]) (test code = [place] [facility] 1538) [address] POCT-GLUCOSE [id number] 18:12:00 Test Item Value Reference Range Interpretation Comments POC-GLUCOSE METER 139 mg/dL 70-110 H TESTED AT [place] [address] ([facility]) (test code = [place] [facility] 1538) [address] POCT-GLUCOSE [id number] 11:51:00 Test Item Value Reference Range Interpretation Comments POC-GLUCOSE METER 147 mg/dL 70-[address] [facility] 67[address] ([facility]) (test code = [place] [facility] 1538) [address] POCT-GLUCOSE [id number] 08:42:00 Test Item Value Reference Range Interpretation Comments POC-GLUCOSE METER 104 mg/dL 70-[address] [facility] 6720 (BEAKER) (test code = [place] 1538) [address] CBC W/PLT COUNT & AUTO [id number] 06:56:00 Test Item Value Reference Range Interpretation [...] (BEAKER) (test code = 2801) BASIC METABOLIC [id number] 06:49:00 Test Item Value Reference Range Interpretation [...] NOT APPLICABLE FOR DIALYSIS PATIEN TS. PROTHROMBIN [id number] 06:46:00 Test Item Value Reference Range Interpretation Comments PROTIME (BEAKER) (test code = 26.9 seconds 11.7-14.7 H 759) INR (BEAKER) (test code = 370) 2.5 <=5.9 RECOMMENDED COUMADIN/WARFARIN INR THERAPY RANGESSTANDARD DOSE: 2.0 - 3.0 Includes: PROPHYLAXIS forvenous thrombosis, systemic embolization; TREATMENT for venous thrombosis and/or pulmonary embolus.HIGH RISK: Target INR is 2.5-3.5 for patients with mechanical heart valves.ANAEROBIC [id number] 00:38:00 Test Item Value Reference Range Interpretation Comments CULTURE (BEAKER) (test No anaerobes isolated code = 1095) ANAEROBIC [id number] 00:38:00 Test Item Value Reference Range Interpretation Comments CULTURE ([facility]) (test No anaerobes isolated code = 1095) POCT-GLUCOSE [id number] 20:43:00 Test Item Value Reference Range Interpretation Comments POC-GLUCOSE METER 124 mg/dL 70-110 H TESTED AT [place] [address] ([facility]) (test code = [place] [facility] 1538) [address] POCT-GLUCOSE [id number] 17:17:00 Test Item Value Reference Range Interpretation Comments POC-GLUCOSE METER 190 mg/dL 70-110 H TESTED AT [place] [address] ([facility]) (test code = [place] [facility] 1538) [address] POCT-GLUCOSE [id number] 11:54:00 Test Item Value Reference Range Interpretation Comments POC-GLUCOSE METER 195 mg/dL 70-110 H TESTED AT [place] [address] ([facility]) (test code = [place] [facility] 1538) [address] C. DIFFICILE GDH [id number] 11:16:00 Test Item Value Reference Range Interpretation Comments CDT TOXIN (test code Negative Negative = [id number]) CDT GDH ANTIGEN (test Negative Negative No ind ication of code = 8002315898) Clostridi um difficile infection and n o colonization. Discontinue ent kenrick isolation and t herapy. Testing performed by [employer] Rapid Cassette Assay. For GDH, published sensitivity of the assay is 98.7% compared to cytotoxicity testing. For Toxin AB, published sensitivity is 87.8% and specificity 99.4% compared to cytotoxicity testing.Verification of kit performance was done by the [facility] Microbiology Lab prior to clinical use.SURGICALLY OBTAINED CULTURE + GRAM [id number] 09:22:00 Test Item Value Reference Interpretation Comments Range CULTURE ([facility]) COAGULASE NEGATIVE A <1+ C oagulase (test [...] = 13) GRAM STAIN RESULT 1+ WBCs ([facility]) (test code = 1123) GRAM STAIN RESULT No organisms seen (BEAKER) (test code = 495248) SURGICALLY OBTAINED CULTURE + GRAM [id number] 09:20:00 Test Item Value Reference Range Interpretation Comments CULTURE (BEAKER) (test code No growth = 1095) GRAM STAIN RESULT (BEAKER) 4+ WBCs (test code = 1123) GRAM STAIN RESULT (BEAKER) No organisms seen (test code = 25266) POCT-GLUCOSE [id number] 08:21:00 Test Item Value Reference Range Interpretation Comments POC-GLUCOSE METER 101 mg/dL 70-[address] [facility] 6720 (BEAKER) (test code = [place] 1538) [address] BASIC METABOLIC [id number] 07:57:00 Test Item Value Reference Range Interpretation [...] NOT APPLICABLE FOR DIALYSIS PATIEN TS. PROTHROMBIN [id number] 06:36:00 Test Item Value Reference Range Interpretation [...] IMMATURE GRANULOCYTES-RELATIVE 2 % 0-1 H PERCENT (AKER) (test code = 2801) POCT-GLUCOSE [id number] 21:40:00 Test Item Value Reference Range Interpretation Comments POC-GLUCOSE METER 176 mg/dL 70-110 H TESTED AT [place] [address] ([facility]) (test code = [facility] 1538) [address] POCT-GLUCOSE [id number] 16:07:00 Test Item Value Reference Range Interpretation Comments POC-GLUCOSE METER 120 mg/dL 70-110 H TESTED AT [place] [address] ([facility]) (test code = [facility] 1538) [address] POCT-GLUCOSE [id number] 08:31:00 Test Item Value Reference Range Interpretation Comments POC-GLUCOSE METER 119 mg/dL 70-110 H TESTED AT [place] [address] ([facility]) (test code = [facility] 1538) [address] BASIC METABOLIC [id number] 08:19:00 Test Item Value Reference Range Interpretation [...] APPLICABLE FOR DIALYSIS PATIEN TS. VANCOMYCIN LEVEL, [id number] 08:16:00 Test Item Value Reference Range Interpretation Comments VANCOMYCIN RANDOM (BEAKER) (test 17.6 ug/mL code = 523) Reference Range: No NormalsPROTHROMBIN [id number] 07:21:00 Test Item Value Reference Range Interpretation [...] PERCENT (BEAKER) (test code = 2801) BLOOD [id number] 06:00:00 Test Item Value Reference Range Interpretation Comments CULTURE (BEAKER) (test No growth in 5 days code = 1095) BLOOD [id number] 00:00:00 Test Item Value Reference Range Interpretation Comments CULTURE (BEAKER) (test No growth in 5 days code = 1095) POCT-GLUCOSE [id number] 22:05:00 Test Item Value Reference Range Interpretation Comments POC-GLUCOSE METER 169 mg/dL 70-[address] [facility] 67 (BEAKER) (test code = [place] [facility] 1538) [address] POCT-GLUCOSE [id number] 18:20:00 Test Item Value Reference Range Interpretation Comments POC-GLUCOSE METER 110 mg/dL 70-[address] [facility] 6720 (BEAKER) (test code = [place] [facility] 1538) [address] POCT-GLUCOSE [id number] 17:17:00 Test Item Value Reference Range Interpretation Comments POC-GLUCOSE METER 99 mg/dL 70-110 TESTED AT [place] [id number] (BEAKER) [facility] [address] 1538) SPIN/CONCENTRATION [id number] 14:49:00 Test Item Value Reference Range Interpretation Comments CONCENTRATION CHARGED (BEAKER) (test Done code = 2657) SPIN/CONCENTRATION [id number] 14:49:00 Test Item Value Reference Range Interpretation Comments CONCENTRATION CHARGED (BEAKER) (test Done code = 2657) POCT-GLUCOSE [id number] 12:13:00 Test Item Value Reference Range Interpretation Comments POC-GLUCOSE METER 188 mg/dL 70-[address] [facility] 67 (BEAKER) (test code = [place] 15[address]) [address] BASIC METABOLIC [id number] 09:56:00 Test Item Value Reference Range Interpretation [...] NOT APPLICABLE FOR DIALYSIS PATIEN TS. POCT-GLUCOSE [id number] 07:45:00 Test Item Value Reference Range Interpretation Comments POC-GLUCOSE METER 108 mg/dL 70-[address] [facility] 67 (BEAKER) (test code = [place] 1538) [address] CBC W/PLT COUNT & AUTO [id number] 07:00:00 Test Item Value Reference Range Interpretation [...] PERCENT (BEAKER) (test code = 2801) PROTHROMBIN [id number] 06:47:00 Test Item Value Reference Range Interpretation Comments PROTIME (BEAKER) (test code = 20.7 seconds 11.7-14.7 H 759) INR (BEAKER) (test code = 370) 1.8 <=5.9 RECOMMENDED COUMADIN/WARFARIN INR THERAPY RANGESSTANDARD DOSE: 2.0 - 3.0 Includes: PROPHYLAXIS forvenous thrombosis, systemic embolization; TREATMENT for venous thrombosis and/or pulmonary embolus.HIGH RISK: Target INR is 2.5-3.5 for patients with mechanical heart valves.POCT-GLUCOSE [id number] 20:42:00 Test Item Value Reference Range Interpretation Comments POC-GLUCOSE METER 134 mg/dL 70-110 H TESTED AT [place] [address] ([facility]) (test code = [facility] 1538) [address] POCT-GLUCOSE [id number] 13:29:00 Test Item Value Reference Range Interpretation Comments POC-GLUCOSE METER 209 mg/dL 70-110 H TESTED AT [place] [address] ([facility]) (test code = [facility] 1538) [address] POCT-GLUCOSE [id number] 08:53:00 Test Item Value Reference Range Interpretation Comments POC-GLUCOSE METER 103 mg/dL 70-110 TESTED AT [place] [address] ([facility]) (test code = [facility] 1538) [address] BASIC METABOLIC [id number] 07:47:00 Test Item Value Reference Range Interpretation [...] DIALYSIS PATIEN TS. WOUND CULTURE + GRAM [id number] 07:44:00 Test Item Value Reference Range Interpretation Comments CULTURE (BEAKER) (test code No growth = 1095) GRAM STAIN RESULT (BEAKER) No WBCs (test code = 1123) GRAM STAIN RESULT (BEAKER) No organisms seen (test code = 10552) [id number] 07:38:00 Test Item Value Reference Range Interpretation Comments PHOSPHORUS (BEAKER) (test code = 3.2 mg/dL 2.3-4.7 604) CBC W/PLT COUNT & AUTO [id number] 06:35:00 Test Item Value Reference Range Interpretation [...] PERCENT (BEAKER) (test code = 2801) PROTHROMBIN [id number] 06:32:00 Test Item Value Reference Range Interpretation Comments PROTIME (BEAKER) (test code = 23.2 seconds 11.7-14.7 H 759) INR (BEAKER) (test code = 370) 2.1 <=5.9 RECOMMENDED COUMADIN/WARFARIN INR THERAPY RANGESSTANDARD DOSE: 2.0 - 3.0 Includes: PROPHYLAXIS forvenous thrombosis, systemic embolization; TREATMENT for venous thrombosis and/or pulmonary embolus.HIGH RISK: Target INR is 2.5-3.5 for patients with mechanical heart valves.POCT-GLUCOSE [id number] 21:21:00 Test Item Value Reference Range Interpretation Comments POC-GLUCOSE METER 177 mg/dL 70-[address] [facility] 6720 ([facility]) (test code = [facility] 1538) [address] POCT-GLUCOSE [id number] 17:53:00 Test Item Value Reference Range Interpretation Comments POC-GLUCOSE METER 89 mg/dL 70-[address] [facility] 6720 ([facility]) (test code = [facility] [address] 1538) IRON, TIBC, % SAT. (WITHOUT FERRITIN)2018-05-22 17:45:00 Test Item Value Reference Range Interpretation Comments IRON (BEAKER) (test code = 547) 63 ug/dL 40-160 TOTAL IRON BINDING CAPACITY 203 ug/dL 250-450 L (BEAKER) (test code = 769) IRON % SATURATION (2) (BEAKER) 31 % 20-55 (test code = 2590) [id number] 16:07:00 Test Item Value Reference Range Interpretation Comments PHOSPHORUS (BEAKER) (test code = 5.4 mg/dL 2.3-4.7 H 604) POCT-GLUCOSE [id number] 12:41:00 Test Item Value Reference Range Interpretation Comments POC-GLUCOSE METER 110 mg/dL 70-[address] [facility] 6720 (BEAKER) (test code = [place] 1538) [address] POCT-GLUCOSE [id number] 07:00:00 Test Item Value Reference Range Interpretation Comments POC-GLUCOSE METER 159 mg/dL 70-[address] [facility] 6720 (BEAKER) (test code = [place] 1538) [address] BASIC METABOLIC [id number] 05:19:00 Test Item Value Reference Range Interpretation [...] S NOT APPLICABLE FOR DIALYSIS PATIEN TS. [id number] 05:18:00 Test Item Value Reference Range Interpretation Comments MAGNESIUM (BEAKER) (test code = 1.9 mg/dL 1.6-2.6 627) PROTHROMBIN [id number] 05:03:00 Test Item Value Reference Range Interpretation [...] PERCENT (BEAKER) (test code = 2801) POCT-GLUCOSE [id number] 23:35:00 Test Item Value Reference Range Interpretation Comments POC-GLUCOSE METER 190 mg/dL 70-[address] [facility] 6720 ([facility]) (test code = [place] [facility] 1538) [address] POCT-GLUCOSE [id number] 17:16:00 Test Item Value Reference Range Interpretation Comments POC-GLUCOSE METER 122 mg/dL 70-[address] [facility] 6720 ([facility]) (test code = [place] [facility] 1538) [address] U/S, TESTICULAR (SCROTUM)2018-05-21 14:53:00Reason for exam:->testicular swellingFINAL [...] MDReport Verified Date/Time: 05/21/2018 14:53:00 Reading Location: [facility] P006J UltrasoundReading Room POCT- GLUCOSE [id number] 11:22:00 Test Item Value Reference Range Interpretation Comments POC-GLUCOSE METER 144 mg/dL 70-110 H TESTED AT [place] [address] (BEAKER) (test code = F[place]ER Paul [facility] 1538) [address] POCT-GLUCOSE [id number] 07:05:00 Test Item Value Reference Range Interpretation Comments POC-GLUCOSE METER 171 mg/dL 70-110 H TESTED AT [place] [address] (BEAKER) (test code = MARIA GNJ Humberto [facility] 1538) [address] BASIC METABOLIC [id number] 06:19:00 Test Item Value Reference Range Interpretation [...] S NOT APPLICABLE FOR DIALYSIS PATIEN TS. [id number] 06:04:00 Test Item Value Reference Range Interpretation Comments MAGNESIUM (BEAKER) (test code = 1.9 mg/dL 1.6-2.6 627) PROTHROMBIN [id number] 05:31:00 Test Item Value Reference Range Interpretation [...] PERCENT (BEAKER) (test code = 2801) POCT-GLUCOSE [id number] 21:29:00 Test Item Value Reference Range Interpretation Comments POC-GLUCOSE METER 156 mg/dL 70-110 H TESTED AT [place] [address] ([facility]) (test code = F[place]ER Paul [facility] 1538) [address] POCT-GLUCOSE [id number] 18:14:00 Test Item Value Reference Range Interpretation Comments POC-GLUCOSE METER 93 mg/dL 70-[address] [facility] 67 ([facility]) (test code = [place] Paul [facility] [address] 1538) PROTHROMBIN [id number] 13:26:00 Test Item Value Reference Range Interpretation Comments PROTIME (BEAKER) (test code = 42.0 seconds 11.7-14.7 H 759) [facility] (test code = 370) 4.4 <=5.9 RECOMMENDED COUMADIN/WARFARIN INR THERAPY RANGESSTANDARD DOSE: 2.0 - 3.0 Includes: PROPHYLAXIS forvenous thrombosis, systemic embolization; TREATMENT for venous thrombosis and/or pulmonary embolus.HIGH RISK: Target INR is 2.5-3.5 for patients with mechanical heart valves.LACTIC ACID, VENOUS, WHOLE [id number] 13:18:00 Test Item Value Reference Range Interpretation Comments LACTATE BLOOD VENOUS (2) ([facility]) 0.8 mmol/L 0.5-2.2 (test code = 2872) Effective 01/04/2016: Units/Reference Range ChangeNew: 0.5-2.2 mmol/L Previous: 5-20 mg/dLPOCT-GLUCOSE [id number] 12:04:00 Test Item Value Reference Range Interpretation Comments POC-GLUCOSE METER 111 mg/dL 70-[address] [facility] 6720 [facility] (test code = [place] 1538) [address] CD4 T CELL [id number] 12:04:00 Test Item Value Reference Range Interpretation Comments CD4/CD8 RATIO FC (BEAKER) (test code = 0.76 0.70-3.23 2126) HEPATITIS B SURFACE [id number] 11:32:00 Test Item Value Reference Range Interpretation Comments HEPATITIS B SURFACE ANTIGEN (2) Nonreactive Nonreactive (BEAKER) (test code = 2585) VANCOMYCIN LEVEL, [id number] 11:10:00 Test Item Value Reference Range Interpretation Comments VANCOMYCIN RANDOM (BEAKER) (test 20.7 ug/mL code = 523) Reference Range: No NormalsBASIC METABOLIC [id number] 09:19:00 Test Item Value Reference Range Interpretation [...] S NOT APPLICABLE FOR DIALYSIS PATIEN TS. [id number] 09:16:00 Test Item Value Reference Range Interpretation Comments MAGNESIUM (BEAKER) (test code = 2.1 mg/dL 1.6-2.6 627) RAD, CHEST, 1 VIEW, NON [id number] 07:56:00Reason for exam:->pleural effusion seen on outside hospital imagingShould this be performed at the bedside?->YesFINAL REPORT Chest one view compared to February 23 Discussion: Small effusions are similar. Replaced cardiac valve and atrial appendage clip noted. No pneumothorax. Unchanged cardiac pulmonary appearance. Signed: Rhea Colindres Verified Date/Time: 05/20/2018 07:56:50 Reading Location: [facility] Radiology Reading Room POCT-GLUCOSE [id number] 07:32:00 Test Item Value Reference Range Interpretation Comments POC-GLUCOSE METER 105 mg/dL 70-[address] [facility] 6720 ([facility]) (test code = [place] Paul [facility] 1538) [address] CBC W/PLT COUNT & AUTO [id number] 07:01:00 Test Item Value Reference Range Interpretation [...] (BEAKER) (test code = 2801) VANCOMYCIN LEVEL, [id number] 22:39:00 Test Item Value Reference Range Interpretation Comments VANCOMYCIN RANDOM (BEAKER) (test 22.0 ug/mL code = 523) Reference Range: No NormalsCOMPREHENSIVE METABOLIC [id number] 22:39:00 Test Item Value Reference Range Interpretation [...] S NOT APPLICABLE FOR DIALYSIS PATIEN TS. [id number] 22:38:00 Test Item Value Reference Range Interpretation Comments PHOSPHORUS (BEAKER) (test code = 4.5 mg/dL 2.3-4.7 604) [id number] 22:38:00 Test Item Value Reference Range Interpretation Comments MAGNESIUM (BEAKER) (test code = 2.0 mg/dL 1.6-2.6 627) [id number] 22:29:00 Test Item Value Reference Range Interpretation Comments PARTIAL THROMBOPLASTIN TIME 45.0 seconds 22.5-36.0 H (BEAKER) (test code = 760) PROTHROMBIN [id number] 22:28:00 Test Item Value Reference Range Interpretation Comments PROTIME (BEAKER) (test code = 48.1 seconds 11.7-14.7 H 759) INR (BEAKER) (test code = 370) 5.2 <=5.9 RECOMMENDED COUMADIN/WARFARIN INR THERAPY RANGESSTANDARD DOSE: 2.0 - 3.0 Includes: PROPHYLAXIS forvenous thrombosis, systemic embolization; TREATMENT for venous thrombosis and/or pulmonary embolus.HIGH RISK: Target INR is 2.5-3.5 for patients with mechanical heart valves.POCT-GLUCOSE [id number] 21:38:00 Test Item Value Reference Range Interpretation Comments POC-GLUCOSE METER 105 mg/dL 70-[address] [facility] 6720 (JARROD) (test code = [place] 1538) [address] XR Ankle Complete 3+ Views [id number] 22:30:07Patient: CALEB LUGO Date/Time05/12/2018 22:24 CDTReason for [...] R16 Final Dictated by: MD Cerrato Melanie CDictsandra DT/TM: 05/12/2018 10:29 pmSigned by: MD Cerrato Melanie CSigned (Electronic Signature): 05/12/2018 10:30 pmXR Chest 1 View [id number] 09:48:17Patient: CALEB LUGO Date/Time05/12/2018 09:30 CDTReason for [...] FSigned (Electronic Signature): 05/12/2018 9:48 amBASIC METABOLIC [id number] 11:15:00 Test Item Value Reference Range Interpretation [...] (BEAKER) (test code = 700) BASIC METABOLIC [id number] 02:55:00 Test Item Value Reference Range Interpretation [...] H (BEAKER) (test code = 700) TROPONIN [id number] 02:30:00 Test Item Value Reference Range Interpretation [...] failure, acidosis, acute neurological disease, and persistent tachyarrhythmia.[id number] 02:21:00 Test Item Value Reference Range Interpretation Comments MAGNESIUM (BEAKER) (test code = 1.8 mg/dL 1.6-2.6 627) CBC W/PLT COUNT & AUTO [id number] 00:24:00 Test Item Value Reference Range Interpretation [...] 0-1 PERCENT (BEAKER) (test code = 2801) [id number] 00:01:00 Test Item Value Reference Range Interpretation [...] mechanical heart valves.RAD, CHEST, 1 VIEW, NON [id number] 23:39:00Reason for exam:->chest painShould this be performed [...] Wan Verified Date/Time: 02/23/2018 23:39:58 Reading Location: [address] Reading Room POCT-GLUCOSE [id number] 19:47:00 Test Item Value Reference Range Interpretation Comments POC-GLUCOSE METER 94 mg/dL 70-110 TESTED AT [place] [address] ([facility]) (test code = [facility] Humberto [facility] [address] 1538) POCT-GLUCOSE [id number] 17:07:00 Test Item Value Reference Range Interpretation Comments POC-GLUCOSE METER 176 mg/dL 70-110 H TESTED AT [place] [address] ([facility]) (test code = [facility] 1538) [address] POCT-GLUCOSE [id number] 12:31:00 Test Item Value Reference Range Interpretation Comments POC-GLUCOSE METER 84 mg/dL 70-110 TESTED AT [place] [address] ([facility]) (test code = [facility] Humberto [facility] [address] 1538) [id number] 10:40:00 Test Item Value Reference Range Interpretation Comments PARTIAL THROMBOPLASTIN TIME 88.5 seconds 22.5-36.0 H ([facility]) (test code = 760) OCCULT BLOOD, [id number] 09:36:00 Test Item Value Reference Range Interpretation Comments FECAL OCCULT BLOOD ([facility]) (test Negative Negative code = 618) POCT-GLUCOSE [id number] 08:51:00 Test Item Value Reference Range Interpretation Comments POC-GLUCOSE METER 223 mg/dL 70-110 H TESTED AT [place] [address] ([facility]) (test code = [facility] 1538) [address] [id number] 04:14:00 Test Item Value Reference Range Interpretation Comments PARTIAL THROMBOPLASTIN TIME 80.3 seconds 22.5-36.0 H ([facility]) (test code = 760) While on warfarin.PROTHROMBIN [id number] 04:13:00 Test Item Value Reference Range Interpretation Comments PROTIME ([facility]) (test code = 23.8 seconds 11.7-14.7 H 759) INR ([facility]) (test code = 370) 2.1 <=5.9 RECOMMENDED COUMADIN/WARFARIN INR THERAPY RANGESSTANDARD DOSE: 2.0 - 3.0 Includes: PROPHYLAXIS forvenous thrombosis, systemic embolization; TREATMENT for venous thrombosis and/or pulmonary embolus.HIGH RISK: Target INR is 2.5-3.5 for patients with mechanical heart valves.While on warfarin.POCT-GLUCOSE METER 2018-02-02 21:56:00 Test Item Value Reference Range Interpretation Comments POC-GLUCOSE METER 206 mg/dL 70-110 H TESTED AT [place] [address] ([facility]) (test code = FOSTER Paul [facility] 1538) [address] [id number] 19:50:00 Test Item Value Reference Range Interpretation Comments PARTIAL THROMBOPLASTIN TIME 59.7 seconds 22.5-36.0 H ([facility]) (test code = 760) POCT-GLUCOSE [id number] 17:00:00 Test Item Value Reference Range Interpretation Comments POC-GLUCOSE METER 183 mg/dL 70-110 H TESTED AT [place] [address] ([facility]) (test code = F[place]ER Paul [facility] 1538) [address] [id number] 12:45:00 Test Item Value Reference Range Interpretation Comments PARTIAL THROMBOPLASTIN TIME 89.5 seconds 22.5-36.0 H ([facility]) (test code = 760) CBC W/PLT COUNT & AUTO [id number] 12:04:00 Test Item Value Reference Range Interpretation Comments WHITE BLOOD CELL COUNT ([facility]) 4.8 K/ L 3.5-10.5 (test code = 775) RED BLOOD CELL COUNT ([facility]) 2.46 M/ L 4.63-6.08 L (test code = 761) HEMOGLOBIN ([facility]) (test code = 7.5 GM/DL 13.7-17.5 L [...] WBC 0-0 (test code = 413) POCT-GLUCOSE [id number] 11:54:00 Test Item Value Reference Range Interpretation Comments POC-GLUCOSE METER 124 mg/dL 70-110 H TESTED AT [place] [address] ([facility]) (test code = [facility] 1538) [address] POCT-GLUCOSE [id number] 07:48:00 Test Item Value Reference Range Interpretation Comments POC-GLUCOSE METER 178 mg/dL 70-110 H TESTED AT [place] [address] ([facility]) (test code = [facility] 1538) [address] BASIC METABOLIC [id number] 05:15:00 Test Item Value Reference Range Interpretation [...] S NOT APPLICABLE FOR DIALYSIS PATIEN TS. [id number] 04:51:00 Test Item Value Reference Range Interpretation Comments MAGNESIUM (BEAKER) (test code = 1.8 mg/dL 1.6-2.6 627) [id number] 04:36:00 Test Item Value Reference Range Interpretation Comments PARTIAL THROMBOPLASTIN TIME 91.9 seconds 22.5-36.0 H ([facility]) (test code = 760) While on warfarin.PROTHROMBIN TIME/[id number] 04:34:00 Test Item Value Reference Range Interpretation Comments PROTIME (BEAKER) (test code = 21.6 seconds 11.7-14.7 H 759) INR ([facility]) (test code = 370) 1.9 <=5.9 RECOMMENDED COUMADIN/WARFARIN INR THERAPY RANGESSTANDARD DOSE: 2.0 - 3.0 Includes: PROPHYLAXIS forvenous thrombosis, systemic embolization; TREATMENT for venous thrombosis and/or pulmonary embolus.HIGH RISK: Target INR is 2.5-3.5 for patients with mechanical heart valves.While on warfarin.POCT-GLUCOSE METER 2018-02-01 21:46:00 Test Item Value Reference Range Interpretation Comments POC-GLUCOSE METER 126 mg/dL 70-110 H TESTED AT [place] [address] ([facility]) [facility] 1538) [address] [id number] 21:23:00 Test Item Value Reference Range Interpretation Comments PARTIAL THROMBOPLASTIN TIME 84.1 seconds 22.5-36.0 H ([facility]) (test code = 760) POCT-GLUCOSE [id number] 16:57:00 Test Item Value Reference Range Interpretation Comments POC-GLUCOSE METER 156 mg/dL 70-110 H TESTED AT [place] [address] ([facility]) (test code = [facility] [place] 1538) [address] [id number] 14:11:00 Test Item Value Reference Range Interpretation Comments PARTIAL THROMBOPLASTIN TIME 96.5 seconds 22.5-36.0 H ([facility]) (test code = 760) POCT-GLUCOSE [id number] 08:24:00 Test Item Value Reference Range Interpretation Comments POC-GLUCOSE METER 169 mg/dL 70-110 H TESTED AT [place] [address] ([facility]) (test code = [place] 1538) [address] POCT-GLUCOSE [id number] 06:49:00 Test Item Value Reference Range Interpretation Comments POC-GLUCOSE METER 172 mg/dL 70-110 H TESTED AT [place] [address] ([facility]) (test code = [place] 1538) [address] [id number] 04:59:00 Test Item Value Reference Range Interpretation Comments PARTIAL THROMBOPLASTIN TIME 64.7 seconds 22.5-36.0 H ([facility]) (test code = 760) While on warfarin.PROTHROMBIN TIME/[id number] 04:57:00 Test Item Value Reference Range Interpretation Comments PROTIME ([facility]) (test code = 17.5 seconds 11.7-14.7 H 759) INR ([facility]) (test code = 370) 1.4 <=5.9 RECOMMENDED COUMADIN/WARFARIN INR THERAPY RANGESSTANDARD DOSE: 2.0 - 3.0 Includes: PROPHYLAXIS forvenous thrombosis, systemic embolization; TREATMENT for venous thrombosis and/or pulmonary embolus.HIGH RISK: Target INR is 2.5-3.5 for patients with mechanical heart valves.While on warfarin.[id number] 21:55:00 Test Item Value Reference Range Interpretation Comments PARTIAL THROMBOPLASTIN TIME 68.8 seconds 22.5-36.0 H ([facility]) (test code = 760) [id number] 13:54:00 Test Item Value Reference Range Interpretation Comments PARTIAL THROMBOPLASTIN TIME 51.7 seconds 22.5-36.0 H ([facility]) (test code = 760) POCT-GLUCOSE [id number] 11:56:00 Test Item Value Reference Range Interpretation Comments POC-GLUCOSE METER 101 mg/dL 70-110 TESTED AT [place] [address] ([facility]) (test code = [place] 1538) [address] POCT-GLUCOSE [id number] 07:58:00 Test Item Value Reference Range Interpretation Comments POC-GLUCOSE METER 111 mg/dL 70-110 H TESTED AT [facility] 6720 (BEAKER) (test code = [place] 1538) [address] BASIC METABOLIC [id number] 05:35:00 Test Item Value Reference Range Interpretation [...] S NOT APPLICABLE FOR DIALYSIS PATIEN TS. [id number] 05:34:00 Test Item Value Reference Range Interpretation Comments PHOSPHORUS (BEAKER) (test code = 4.2 mg/dL 2.3-4.7 604) [id number] 05:34:00 Test Item Value Reference Range Interpretation Comments MAGNESIUM (BEAKER) (test code = 1.7 mg/dL 1.6-2.6 627) PROTHROMBIN [id number] 05:24:00 Test Item Value Reference Range Interpretation Comments PROTIME (BEAKER) (test code = 18.8 seconds 11.7-14.7 H 759) INR (BEAKER) (test code = 370) 1.6 <=5.9 RECOMMENDED COUMADIN/WARFARIN INR THERAPY RANGESSTANDARD DOSE: 2.0 - 3.0 Includes: PROPHYLAXIS forvenous thrombosis, systemic embolization; TREATMENT for venous thrombosis and/or pulmonary embolus.HIGH RISK: Target INR is 2.5-3.5 for patients with mechanical heart valves.[id number] 05:05:00 Test Item Value Reference Range Interpretation Comments PARTIAL THROMBOPLASTIN TIME 96.6 seconds 22.5-36.0 H (BEAKER) (test code = 760) CBC W/PLT COUNT & AUTO [id number] 04:54:00 Test Item Value Reference Range Interpretation [...] EOSINOPHILS ABSOLUTE COUNT 0.07 K/ L 0.04-0.54 ([facility]) (test code = 416) BASOPHILS ABSOLUTE COUNT (AKER) 0.02 K/ L 0.01-0.08 (test code = 417) IMMATURE GRANULOCYTES-RELATIVE 1 % 0-1 PERCENT ([facility]) (test code = 2801) OCCULT BLOOD, [id number] 22:44:00 Test Item Value Reference Range Interpretation Comments FECAL OCCULT BLOOD ([facility]) (test Positive Negative A code = 618) [id number] 21:14:00 Test Item Value Reference Range Interpretation Comments PARTIAL THROMBOPLASTIN TIME 69.1 seconds 22.5-36.0 H ([facility]) (test code = 760) POCT-GLUCOSE [id number] 20:49:00 Test Item Value Reference Range Interpretation Comments POC-GLUCOSE METER 160 mg/dL 70-110 H TESTED AT [place] [address] ([facility]) (test code = [facility] Arvinas [facility] 1538) [address] POCT-GLUCOSE [id number] 17:59:00 Test Item Value Reference Range Interpretation Comments POC-GLUCOSE METER 128 mg/dL 70-110 H TESTED AT [place] [address] ([facility]) (test code = [facility] 1538) [address] POCT-GLUCOSE [id number] 13:31:00 Test Item Value Reference Range Interpretation Comments POC-GLUCOSE METER 70 mg/dL 70-110 TESTED AT [place] [address] ([facility]) (test code = [facility] Arvinas [facility] [address] 1538) [id number] 13:16:00 Test Item Value Reference Range Interpretation Comments PARTIAL THROMBOPLASTIN TIME 78.3 seconds 22.5-36.0 H ([facility]) (test code = 760) POCT-GLUCOSE [id number] 12:47:00 Test Item Value Reference Range Interpretation Comments POC-GLUCOSE METER 49 mg/dL 70-110 L TESTED AT [place] [address] ([facility]) (test code = [facility] Arvinas [facility] [address] 1538) POCT-GLUCOSE [id number] 09:05:00 Test Item Value Reference Range Interpretation Comments POC-GLUCOSE METER 306 mg/dL 70-110 H TESTED AT [place] [address] ([facility]) (test code = [facility] Arvinas [facility] 1538) [address] OCCULT BLOOD, [id number] 06:52:00 Test Item Value Reference Range Interpretation Comments FECAL OCCULT BLOOD (BEAKER) (test Positive Negative A code = 618) [id number] 05:42:00 Test Item Value Reference Range Interpretation [...] 20-55 (test code = 2590) BASIC METABOLIC [id number] 03:53:00 Test Item Value Reference Range Interpretation [...] S NOT APPLICABLE FOR DIALYSIS PATIEN TS. [id number] 03:51:00 Test Item Value Reference Range Interpretation Comments PHOSPHORUS (BEAKER) (test code = 3.2 mg/dL 2.3-4.7 604) [id number] 03:51:00 Test Item Value Reference Range Interpretation Comments PARTIAL THROMBOPLASTIN TIME 122.0 seconds 22.5-36.0 H ([facility]) (test code = 760) While on warfarin.PROTHROMBIN [id number] 03:48:00 Test Item Value Reference Range Interpretation Comments PROTIME (BEAKER) (test code = 16.3 seconds 11.7-14.7 H 759) INR ([facility]) (test code = 370) 1.3 <=5.9 RECOMMENDED COUMADIN/WARFARIN INR THERAPY RANGESSTANDARD DOSE: 2.0 - 3.0 Includes: PROPHYLAXIS forvenous thrombosis, systemic embolization; TREATMENT for venous thrombosis and/or pulmonary embolus.HIGH RISK: Target INR is 2.5-3.5 for patients with mechanical heart valves.While on warfarin.[id number] 03:44:00 Test Item Value Reference Range Interpretation Comments MAGNESIUM (BEAKER) (test code = 1.7 mg/dL 1.6-2.6 627) CBC W/PLT COUNT & AUTO [id number] 03:38:00 Test Item Value Reference Range Interpretation [...] PERCENT (BEAKER) (test code = 2801) POCT-GLUCOSE [id number] 23:35:00 Test Item Value Reference Range Interpretation Comments POC-GLUCOSE METER 149 mg/dL 70-[address] [facility] 6720 ([facility]) (test code = [facility] 1538) [id number] 20:08:00 Test Item Value Reference Range Interpretation Comments PARTIAL THROMBOPLASTIN TIME 55.6 seconds 22.5-36.0 [facility] (test code = [facility]60) [id number] 15:10:00 Test Item Value Reference Range Interpretation Comments PARTIAL THROMBOPLASTIN TIME 81.4 seconds 22.5-36.0 H ([facility]) (test code = 760) POCT-GLUCOSE [id number] 11:58:00 Test Item Value Reference Range Interpretation Comments POC-GLUCOSE METER 124 mg/dL 70-[address] [facility] [address] ([facility]) (test code = [facility] 1538) [id number] RAD, CHEST, 1 VIEW, NON [id number] 08:59:00Reason for exam:->s/p mvrShould this be performed at the bedside?->YesFINAL REPORT Chest one view compared to January 24 Discussion: Left IJ line, atrial appendage clip, cardiac valve replacement noted. Mild interstitial congestion. No gross effusion or pneumothorax. IMPRESSIONS: No significant change Signed: Rhea Colindreseport Verified Date/Time:01/29/2018 08:59:39 Reading Location: [facility] Radiology Reading Room POCT-GLUCOSE [id number] 07:41:00 Test Item Value Reference Range Interpretation Comments POC-GLUCOSE METER 113 mg/dL 70-[address] [facility] 67[address] (BEAKER) (test code = [place] 1538) [id number] 07:23:00 Test Item Value Reference Range Interpretation Comments PARTIAL THROMBOPLASTIN TIME 89.8 seconds 22.5-36.0 H (BEAKER) (test code = 760) BASIC METABOLIC [id number] 06:05:00 Test Item Value Reference Range Interpretation [...] NOT APPLICABLE FOR DIALYSIS PATIEN TS. PROTHROMBIN [id number] 05:59:00 Test Item Value Reference Range Interpretation Comments PROTIME (BEAKER) (test code = 17.0 seconds 11.7-14.7 H 759) INR (BEAKER) (test code = 370) 1.4 <=5.9 RECOMMENDED COUMADIN/WARFARIN INR THERAPY RANGESSTANDARD DOSE: 2.0 - 3.0 Includes: PROPHYLAXIS forvenous thrombosis, systemic embolization; TREATMENT for venous thrombosis and/or pulmonary embolus.HIGH RISK: Target INR is 2.5-3.5 for patients with mechanical heart valves.While on warfarin.[id number] 05:56:00 Test Item Value Reference Range Interpretation Comments PHOSPHORUS (BEAKER) (test code = 5.3 mg/dL 2.3-4.7 H 604) [id number] 05:56:00 Test Item Value Reference Range Interpretation Comments MAGNESIUM (BEAKER) (test code = 1.9 mg/dL 1.6-2.6 627) CBC W/PLT COUNT & AUTO [id number] 05:38:00 Test Item Value Reference Range Interpretation [...] 0-1 PERCENT (BEAKER) (test code = 2801) [id number] 01:07:00 Test Item Value Reference Range Interpretation Comments PARTIAL THROMBOPLASTIN TIME 63.5 seconds 22.5-36.0 H (BEAKER) (test code = 760) [id number] 18:24:00 Test Item Value Reference Range Interpretation Comments PARTIAL THROMBOPLASTIN TIME 56.6 seconds 22.5-36.0 H (BEAKER) (test code = 760) POCT-GLUCOSE [id number] 18:14:00 Test Item Value Reference Range Interpretation Comments POC-GLUCOSE METER 101 mg/dL 70-[address] [facility] 67[address] ([facility] (test code = [place] 1538) [address] [id number] 13:57:00 Test Item Value Reference Range Interpretation Comments PARTIAL THROMBOPLASTIN TIME 122.3 seconds 22.5-36.0 H (BEAKER) (test code = 760) POCT-GLUCOSE [id number] 13:08:00 Test Item Value Reference Range Interpretation Comments POC-GLUCOSE METER 105 mg/dL 70-[address] [facility] 67[address] ([facility]) (test code = [place] 1538) [address] BASIC METABOLIC [id number] 04:31:00 Test Item Value Reference Range Interpretation [...] S NOT APPLICABLE FOR DIALYSIS PATIEN TS. [id number] 04:28:00 Test Item Value Reference Range Interpretation Comments PHOSPHORUS (BEAKER) (test code = 3.9 mg/dL 2.3-4.7 604) [id number] 04:28:00 Test Item Value Reference Range Interpretation Comments MAGNESIUM (BEAKER) (test code = 1.7 mg/dL 1.6-2.6 627) HEPATIC FUNCTION [id number] 04:28:00 Test Item Value Reference Range Interpretation [...] (test code = 33 U/L 6-55 347) [id number] 04:20:00 Test Item Value Reference Range Interpretation Comments PARTIAL THROMBOPLASTIN TIME 106.2 seconds 22.5-36.0 H (BEAKER) (test code = 760) While on warfarin.PROTHROMBIN TIME/[id number] 04:15:00 Test Item Value Reference Range Interpretation [...] valves.While on warfarin.CBC W/PLT COUNT & AUTO [id number] 04:05:00 Test Item Value Reference Range Interpretation [...] PERCENT (BEAKER) (test code = 2801) POCT-GLUCOSE [id number] 00:29:00 Test Item Value Reference Range Interpretation Comments POC-GLUCOSE METER 119 mg/dL 70-[address] [facility] 67 ([facility]) (test code = [place] 1538) [address] [id number] 00:24:00 Test Item Value Reference Range Interpretation Comments PARTIAL THROMBOPLASTIN TIME 72.4 seconds 22.5-36.0 H (BEAKER) (test code = 760) POCT-GLUCOSE [id number] 18:33:00 Test Item Value Reference Range Interpretation Comments POC-GLUCOSE METER 158 mg/dL 70-[address] [facility] 6720 (BEAKER) (test code = [place] 1538) [address] [id number] 18:22:00 Test Item Value Reference Range Interpretation Comments PARTIAL THROMBOPLASTIN TIME 78.6 seconds 22.5-36.0 H (BEAKER) (test code = 760) POCT-GLUCOSE [id number] 12:20:00 Test Item Value Reference Range Interpretation Comments POC-GLUCOSE METER 110 mg/dL 70-[address] [facility] 6720 (BEAKER) (test code = [place] 1538) [address] [id number] 12:04:00 Test Item Value Reference Range Interpretation Comments PARTIAL THROMBOPLASTIN TIME 98.0 seconds 22.5-36.0 H (BEAKER) (test code = 760) [id number] 04:11:00 Test Item Value Reference Range Interpretation [...] heart valves.While on warfarin.While on warfarin. PROTHROMBIN [id number] 04:10:00 Test Item Value Reference Range Interpretation Comments PROTIME (BEAKER) (test code = 15.2 seconds 11.7-14.7 H 759) INR (BEAKER) (test code = 370) 1.2 <=5.9 RECOMMENDED COUMADIN/WARFARIN INR THERAPY RANGESSTANDARD DOSE: 2.0 - 3.0 Includes: PROPHYLAXIS forvenous thrombosis, systemic embolization; TREATMENT for venous thrombosis and/or pulmonary embolus.HIGH RISK: Target INR is 2.5-3.5 for patients with mechanical heart valves.BASIC METABOLIC [id number] 03:53:00 Test Item Value Reference Range Interpretation [...] PATIEN TS. CBC W/PLT COUNT & AUTO [id number] 03:50:00 Test Item Value Reference Range Interpretation [...] H PERCENT (BEAKER) (test code = 2801) [id number] 03:45:00 Test Item Value Reference Range Interpretation Comments PHOSPHORUS (BEAKER) (test code = 4.7 mg/dL 2.3-4.7 604) [id number] 03:45:00 Test Item Value Reference Range Interpretation Comments MAGNESIUM (BEAKER) (test code = 2.0 mg/dL 1.6-2.6 627) HEPATIC FUNCTION [id number] 03:45:00 Test Item Value Reference Range Interpretation [...] (test code = 36 U/L 6-55 347) [id number] 22:16:00 Test Item Value Reference Range Interpretation Comments PARTIAL THROMBOPLASTIN TIME 60.7 seconds 22.5-36.0 H (BEAKER) (test code = 760) POCT-GLUCOSE [id number] 18:32:00 Test Item Value Reference Range Interpretation Comments POC-GLUCOSE METER 125 mg/dL 70-[address] [facility] 6720 (BEAKER) (test code = [place] 1538) [address] CBC (HEMOGRAM ONLY)2018-01-26 17:21:00 Test Item Value [...] (BEAKER) (test code = 413) BASIC METABOLIC [id number] 07:16:00 Test Item Value Reference Range Interpretation [...] S NOT APPLICABLE FOR DIALYSIS PATIEN TS. [id number] 07:13:00 Test Item Value Reference Range Interpretation Comments PHOSPHORUS (BEAKER) (test code = 4.3 mg/dL 2.3-4.7 604) [id number] 07:13:00 Test Item Value Reference Range Interpretation Comments MAGNESIUM (BEAKER) (test code = 2.0 mg/dL 1.6-2.6 627) HEPATIC FUNCTION [id number] 07:13:00 Test Item Value Reference Range Interpretation [...] (test code = 37 U/L 6-55 347) [id number] 07:12:00 Test Item Value Reference Range Interpretation [...] PERCENT (BEAKER) (test code = 2801) BLOOD [id number] 00:00:00 Test Item Value Reference Range Interpretation Comments CULTURE (BEAKER) (test No growth in 5 days code = 1095) BLOOD [id number] 00:00:00 Test Item Value Reference Range Interpretation Comments CULTURE (BEAKER) (test No growth in 5 days code = 1095) POCT-GLUCOSE [id number] 23:37:00 Test Item Value Reference Range Interpretation Comments POC-GLUCOSE METER 87 mg/dL 70-110 TESTED AT [place] [address] ([facility]) (test code = [facility] [address] 1538) [id number] 23:06:00 Test Item Value Reference Range Interpretation Comments PARTIAL THROMBOPLASTIN TIME 81.8 seconds 22.5-36.0 H (BEAKER) (test code = 760) POCT-GLUCOSE [id number] 20:42:00 Test Item Value Reference Range Interpretation Comments POC-GLUCOSE METER 193 mg/dL 70-110 H TESTED AT [place] [address] ([facility]) (test code = [facility] 1538) [address] HEMOGLOBIN AND [id number] 17:40:00 Test Item Value Reference Range Interpretation Comments HEMOGLOBIN (BEAKER) (test code = 8.4 GM/DL 13.7-17.5 L 410) HEMATOCRIT (BEAKER) (test code = 25.4 % 40.1-51.0 L 411) [id number] 13:06:00 Test Item Value Reference Range Interpretation Comments PARTIAL THROMBOPLASTIN TIME 61.4 seconds 22.5-36.0 H (BEAKER) (test code = 760) POCT-GLUCOSE [id number] 12:56:00 Test Item Value Reference Range Interpretation Comments POC-GLUCOSE METER 116 mg/dL 70-110 H TESTED AT [place] [address] ([facility]) (test code = [facility] 1538) [address] [id number] 06:43:00 Test Item Value Reference Range Interpretation [...] 37 % 20-55 (test code = 2590) [id number] 05:32:00 Test Item Value Reference Range Interpretation Comments PARTIAL THROMBOPLASTIN TIME 63.7 seconds 22.5-36.0 H (BEAKER) (test code = 760) BASIC METABOLIC [id number] 05:03:00 Test Item Value Reference Range Interpretation [...] APPLICABLE FOR DIALYSIS PATIEN TS. HEPATIC FUNCTION [id number] 05:00:00 Test Item Value Reference Range Interpretation [...] (test code = 41 U/L 6-55 347) [id number] 04:40:00 Test Item Value Reference Range Interpretation [...] 0-0 (BEAKER) (test code = 413) POCT-GLUCOSE [id number] 00:30:00 Test Item Value Reference Range Interpretation Comments POC-GLUCOSE METER 112 mg/dL 70-[address] [facility] 6720 (BEAKER) (test code = [place] 1538) [address] CBC W/PLT COUNT & AUTO [id number] 19:16:00 Test Item Value Reference Range Interpretation [...] PERCENT (BEAKER) (test code = 2801) POCT-GLUCOSE [id number] 18:27:00 Test Item Value Reference Range Interpretation Comments POC-GLUCOSE METER 102 mg/dL 70-110 TESTED AT [place] [address] ([facility]) (test code = F[place] Paul [facility] 1538) [address] POCT-GLUCOSE [id number] 13:01:00 Test Item Value Reference Range Interpretation Comments POC-GLUCOSE METER 119 mg/dL 70-110 H TESTED AT [place] [address] ([facility]) (test code = [place] Paul [facility] 1538) [address] RAD, CHEST, 1 VIEW, NON [id number] 10:59:00Reason for exam:->ptxShould this be performed at [...] MDReport Verified Date/Time: 01/24/2018 10:59:29 Reading Location: [facility] Diagnostic Imaging Reading Room - [place] [address] BRONCHIAL CULTURE + GRAM STAIN 2018-01-24 08:53:00 Test Item Value Reference Range Interpretation Comments CULTURE (BEAKER) 2+ Normal respiratory (test code = 1095) pete present GRAM STAIN RESULT 4+ White blood cells (BEAKER) (test code = seen 1123) GRAM STAIN RESULT No organisms seen (BEAKER) (test code = 16911) POCT-GLUCOSE [id number] 06:28:00 Test Item Value Reference Range Interpretation Comments POC-GLUCOSE METER 119 mg/dL 70-[address] [facility] 6720 (BEAKER) (test code = [place] 1538) [address] BASIC METABOLIC [id number] 04:41:00 Test Item Value Reference Range Interpretation [...] WBC 0-0 (BEAKER) (test code = 413) [id number] 04:21:00 Test Item Value Reference Range Interpretation Comments MAGNESIUM (BEAKER) (test code = 2.0 mg/dL 1.6-2.6 627) HEPATIC FUNCTION [id number] 04:21:00 Test Item Value Reference Range Interpretation [...] = 36 U/L 6-55 347) Specimen slightly [id number] 04:13:00 Test Item Value Reference Range Interpretation Comments PARTIAL THROMBOPLASTIN TIME 72.1 seconds 22.5-36.0 H (BEAKER) (test code = 760) BLOOD GAS, [id number] 04:13:00 Test Item Value Reference Range Interpretation [...] (test code = 1819) 100.0 % POCT-GLUCOSE [id number] 00:08:00 Test Item Value Reference Range Interpretation Comments POC-GLUCOSE METER 150 mg/dL 70-110 H TESTED AT [place] [address] ([facility]) (test code = [facility] 1538) [address] POCT-GLUCOSE [id number] 18:45:00 Test Item Value Reference Range Interpretation Comments POC-GLUCOSE METER 162 mg/dL 70-110 H TESTED AT [place] [address] ([facility]) (test code = [facility] 1538) [address] POCT-GLUCOSE [id number] 13:14:00 Test Item Value Reference Range Interpretation Comments POC-GLUCOSE METER 176 mg/dL 70-110 H TESTED AT [place] [address] ([facility]) (test code = [facility] 1538) [address] POCT-GLUCOSE [id number] 10:44:00 Test Item Value Reference Range Interpretation Comments POC-GLUCOSE METER 146 mg/dL 70-110 H TESTED AT [place] [address] ([facility]) (test code = [facility] 1538) [address] BLOOD GAS, [id number] 10:32:00 Test Item Value Reference Range Interpretation [...] 40.0 % RAD, CHEST, 1 VIEW, NON [id number] 09:14:00Reason for exam:->ptxShould this be performed at [...] MDReport Verified Date/Time: 01/23/2018 09:14:48 Reading Location: [facility] Radiology Reading Room Electronically sign ed by: KYLE ROME M.D. on 01/23/2018 09:14 AMBLOOD [id number] 08:09:00 Test Item Value Reference Range Interpretation [...] is required.This sample was tested at the [facility] Clinical Microbiology Laboratory using the [employer] Blood Culture ID Panel. This test is FDA cleared for in vitro diagnostic use and has been verified and approved by the [facility] Clinical Microbiology laboratory for clinical use. Reference Range: Not DetectedBLOOD GAS, [id number] 04:45:00 Test Item Value Reference Range Interpretation [...] code = 1819) 40.0 % BASIC METABOLIC [id number] 04:39:00 Test Item Value Reference Range Interpretation [...] APPLICABLE FOR DIALYSIS PATIEN TS. Specimen slightly [id number] 04:35:00 Test Item Value Reference Range Interpretation Comments MAGNESIUM (BEAKER) (test code = 1.8 mg/dL 1.6-2.6 627) HEPATIC FUNCTION [id number] 04:35:00 Test Item Value Reference Range Interpretation [...] = 40 U/L 6-55 347) Specimen slightly [id number] 04:18:00 Test Item Value Reference Range Interpretation [...] WBC 0-0 (test code = 413) POCT-GLUCOSE [id number] 00:52:00 Test Item Value Reference Range Interpretation Comments POC-GLUCOSE METER 145 mg/dL 70-[address] [facility] 6720 ([facility]) (test code = [place] 1538) [address] BLOOD [id number] 00:00:00 Test Item Value Reference Range Interpretation Comments CULTURE (BEAKER) (test No growth in 5 days code = 1095) POCT-GLUCOSE [id number] 18:17:00 Test Item Value Reference Range Interpretation Comments POC-GLUCOSE METER 97 mg/dL 70-110 TESTED AT [place] [id number] (BEAKER) (test code = FOSTER Paul [facility] [address] 1538) POCT-GLUCOSE [id number] 13:26:00 Test Item Value Reference Range Interpretation Comments POC-GLUCOSE METER 138 mg/dL 70-110 H TESTED AT [place] [address] (BEAKER) (test code = F[place] Paul [facility] 1538) [address] BLOOD GAS, [id number] 10:32:00 Test Item Value Reference Range Interpretation [...] (test code = 1819) 40.0 % POCT-GLUCOSE [id number] 06:21:00 Test Item Value Reference Range Interpretation Comments POC-GLUCOSE METER 138 mg/dL 70-[address] [facility] 6720 (BEAKER) (test code = [facility] Humberto [facility] 1538) [address] BASIC METABOLIC [id number] 04:25:00 Test Item Value Reference Range Interpretation [...] APPLICABLE FOR DIALYSIS PATIEN TS. Specimen slightly [id number] 04:24:00 Test Item Value Reference Range Interpretation Comments MAGNESIUM (BEAKER) (test code = 2.1 mg/dL 1.6-2.6 627) HEPATIC FUNCTION [id number] 04:24:00 Test Item Value Reference Range Interpretation [...] /100 WBC 0-0 (test code = 413) [id number] 04:07:00 Test Item Value Reference Range Interpretation Comments PARTIAL THROMBOPLASTIN TIME 80.2 seconds 22.5-36.0 H (BEAKER) (test code = 760) BLOOD GAS, [id number] 04:06:00 Test Item Value Reference Range Interpretation [...] 40.0 % RAD, CHEST, 1 VIEW, NON [id number] 03:32:00Reason for exam:->ptxShould this be performed at [...] MDReport Verified Date/Time: 01/22/2018 03:32:38 Reading Location: [facility] C013Y CT Body Reading Room POCT-GLUCOSE [id number] 00:43:00 Test Item Value Reference Range Interpretation Comments POC-GLUCOSE METER 102 mg/dL 70-110 TESTED AT [place] [address] ([facility]) (test code = [facility] Arvinas [facility] 1538) [address] [id number] 17:31:00 Test Item Value Reference Range Interpretation Comments PARTIAL THROMBOPLASTIN TIME 65.0 seconds 22.5-36.0 H ([facility]) (test code = 760) POCT-GLUCOSE [id number] 17:24:00 Test Item Value Reference Range Interpretation Comments POC-GLUCOSE METER 171 mg/dL 70-110 H TESTED AT [place] [address] ([facility]) (test code = [facility] Arvinas [facility] 1538) [address] POCT-GLUCOSE [id number] 13:01:00 Test Item Value Reference Range Interpretation Comments POC-GLUCOSE METER 144 mg/dL 70-110 H TESTED AT [place] [address] ([facility]) (test code = [facility] Arvinas [facility] 1538) [address] [id number] 11:12:00 Test Item Value Reference Range Interpretation Comments PARTIAL THROMBOPLASTIN TIME 67.9 seconds 22.5-36.0 H ([facility]) (test code = 760) RAD, CHEST, 1 VIEW, NON [id number] 08:01:00Reason for exam:->ptxShould this be performed at [...] MDReport Verified Date/Time: 01/21/2018 08:01:07 Reading Location: [facility] Radiology Reading Room POCT-GLUCOSE [id number] 06:50:00 Test Item Value Reference Range Interpretation Comments POC-GLUCOSE METER 149 mg/dL 70-[address] [facility] 6720 (BEAKER) (test code = [place] 1538) [address] CBC (HEMOGRAM ONLY)2018-01-21 04:20:00 Test Item Value [...] /100 WBC 0-0 (test code = 413) [id number] 04:03:00 Test Item Value Reference Range Interpretation Comments PARTIAL THROMBOPLASTIN TIME 51.2 seconds 22.5-36.0 H (BEAKER) (test code = 760) BASIC METABOLIC [id number] 04:01:00 Test Item Value Reference Range Interpretation [...] APPLICABLE FOR DIALYSIS PATIEN TS. Specimen moderately [id number] 03:59:00 Test Item Value Reference Range Interpretation Comments MAGNESIUM (BEAKER) (test code = 2.0 mg/dL 1.6-2.6 627) HEPATIC FUNCTION [id number] 03:59:00 Test Item Value Reference Range Interpretation [...] U/L 6-55 347) Specimen moderately ictericVANCOMYCIN LEVEL, [id number] 03:57:00 Test Item Value Reference Range Interpretation Comments VANCOMYCIN RANDOM (BEAKER) (test 18.3 ug/mL code = 523) Reference Range: No NormalsOXYGEN SATURATION, [id number] 03:32:00 Test Item Value Reference Range Interpretation Comments O2 SATURATION (MEASURED) (BEAKER) 86.3 % (test code = 1455) BLOOD GAS, [id number] 03:30:00 Test Item Value Reference Range Interpretation [...] (test code = 1819) 40.0 % POCT-GLUCOSE [id number] 23:43:00 Test Item Value Reference Range Interpretation Comments POC-GLUCOSE METER 143 mg/dL 70-110 H TESTED AT [place] [address] ([facility]) (test code = [place] 1538) [address] BLOOD [id number] 18:00:00 Test Item Value Reference Range Interpretation Comments CULTURE (BEAKER) (test No growth in 5 days code = 1095) BLOOD [id number] 18:00:00 Test Item Value Reference Range Interpretation Comments CULTURE (BEAKER) (test No growth in 5 days code = 1095) POCT-GLUCOSE [id number] 16:32:00 Test Item Value Reference Range Interpretation Comments POC-GLUCOSE METER 185 mg/dL 70-110 H TESTED AT [place] [address] ([facility]) (test code = FOSTER Paul [facility] 1538) [address] MISCELLANEOUS LAB [id number] 15:04:00 Test Item Value Reference Range Interpretation Comments SCAN RESULT (test code = 5241142) Result comments: NOT DETECTED Panel is negative for [employer] BCID-detectable organisms. Please refer to traditional culture and sensitivity results as they become available. Other organisms and resistance markers not contained in this PCR panel cannot be excluded and follow-up of traditional culture results is required. This sample was tested at the [facility] Clinical Microbiology Laboratory using the [employer] Blood Culture ID Panel. This test is FDA cleared for in vitro diagnostic use and hasbeen verified and approved by the [facility] Clinical Microbiology laboratory for clinical use. ReferenceRange: Not DetectedPOCT- GLUCOSE [id number] 12:25:00 Test Item Value Reference Range Interpretation Comments POC-GLUCOSE METER 116 mg/dL 70-110 H TESTED AT [place] [address] ([facility]) (test code = FOSTER Paul [facility] 1538) [address] RAD, CHEST, 1 VIEW, NON [id number] 06:38:00Reason for exam:->pl effusionShould this be performed [...] MDReport Verified Date/Time: 01/20/2018 06:38:33 Reading Location: [place] [address]Y CT Body Reading Room POCT-GLUCOSE [id number] 05:54:00 Test Item Value Reference Range Interpretation Comments POC-GLUCOSE METER 231 mg/dL 70-110 H TESTED AT [place] [address] ([facility]) (test code = MAR[facility] Humberto [facility] 1538) [address] VANCOMYCIN LEVEL, [id number] 04:23:00 Test Item Value Reference Range Interpretation Comments VANCOMYCIN RANDOM (BEAKER) (test 25.8 ug/mL code = 523) Reference Range: No [id number] 04:17:00 Test Item Value Reference Range Interpretation Comments MAGNESIUM (BEAKER) (test code = 2.0 mg/dL 1.6-2.6 627) HEPATIC FUNCTION [id number] 04:17:00 Test Item Value Reference Range Interpretation [...] 6-55 H 347) Specimen moderately ictericBASIC METABOLIC [id number] 04:17:00 Test Item Value Reference Range Interpretation [...] APPLICABLE FOR DIALYSIS PATIEN TS. Specimen moderately [id number] 04:05:00 Test Item Value Reference Range Interpretation Comments PARTIAL THROMBOPLASTIN TIME 69.7 seconds 22.5-36.0 H (BEAKER) (test code = 760) CBC W/PLT COUNT & AUTO [id number] 03:49:00 Test Item Value Reference Range Interpretation [...] (BEAKER) (test code = 2801) OXYGEN SATURATION, [id number] 03:48:00 Test Item Value Reference Range Interpretation Comments O2 SATURATION (MEASURED) (AKER) 84.1 % (test code = 1455) POCT-GLUCOSE [id number] 23:14:00 Test Item Value Reference Range Interpretation Comments POC-GLUCOSE METER 248 mg/dL 70-110 H TESTED AT [place] [address] ([facility]) (test code = [facility] Humberto [facility] 1538) [address] POCT-GLUCOSE [id number] 18:56:00 Test Item Value Reference Range Interpretation Comments POC-GLUCOSE METER 213 mg/dL 70-110 H TESTED AT [place] [address] ([facility]) (test code = [facility] 1538) [address] POCT-GLUCOSE [id number] 14:06:00 Test Item Value Reference Range Interpretation Comments POC-GLUCOSE METER 210 mg/dL 70-110 H TESTED AT [place] [address] ([facility]) (test code = [facility] 1538) [address] SPUTUM CULTURE + GRAM [id number] 13:45:00 Test Item Value Reference Range Interpretation Comments CULTURE (BEAKER) 4+ Normal respiratory (test code = 1095) pete present GRAM STAIN RESULT 4+ WBCs (BEAKER) (test code = 1123) GRAM STAIN RESULT 0-5 epithelial cells (BEAKER) (test code = 70625) GRAM STAIN RESULT 3+ gram negative rods (BEAKER) (test code = 30042) GRAM STAIN RESULT 2+ gram positive cocci (BEAKER) (test code = in pairs and clusters 396986) [id number] 12:37:00 Test Item Value Reference Range Interpretation Comments PARTIAL THROMBOPLASTIN TIME 74.3 seconds 22.5-36.0 H (BEAKER) (test code = 760) CBC W/PLT COUNT & AUTO [id number] 10:52:00 Test Item Value Reference Range Interpretation [...] H (test code = 413) VANCOMYCIN LEVEL, [id number] 05:41:00 Test Item Value Reference Range Interpretation Comments VANCOMYCIN RANDOM (BEAKER) (test 27.9 ug/mL code = 523) Reference Range: No NormalsBASIC METABOLIC [id number] 05:39:00 Test Item Value Reference Range Interpretation [...] APPLICABLE FOR DIALYSIS PATIEN TS. Specimen moderately [id number] 05:36:00 Test Item Value Reference Range Interpretation Comments MAGNESIUM (BEAKER) (test code = 2.0 mg/dL 1.6-2.6 627) [id number] 05:36:00 Test Item Value Reference Range Interpretation Comments PHOSPHORUS (BEAKER) (test code = 3.9 mg/dL 2.3-4.7 604) HEPATIC FUNCTION [id number] 05:36:00 Test Item Value Reference Range Interpretation [...] 6-55 H 347) Specimen moderately ictericOXYGEN SATURATION, [id number] 05:33:00 Test Item Value Reference Range Interpretation [...] WBC 0-0 H (test code = 413) [id number] 05:24:00 Test Item Value Reference Range Interpretation Comments PARTIAL THROMBOPLASTIN TIME 68.1 seconds 22.5-36.0 H (BEAKER) (test code = 760) RAD, CHEST, 1 VIEW, NON [id number] 04:41:00Reason for exam:->pl effusionShould this be performed at the bedside?->YesFINAL REPORT CLINICAL INDICATION: Support lines. Comparison: 01/18/2018 The ca rdiomediastinal contours are stable. Central pulmonary vascular congestion and bilateral parenchymalopacities are unchanged. There is no pneumothorax. Support lines are stable. Signed: Kellen Parra MDReport Verified Date/Time: 01/19/2018 04:41:27 Reading Location: [address] Reading Room APTT 2018-01-19 00:38:00 Test Item Value Reference Range Interpretation Comments PARTIAL THROMBOPLASTIN TIME 45.5 seconds 22.5-36.0 H (BEAKER) (test code = 760) POCT-GLUCOSE [id number] 00:21:00 Test Item Value Reference Range Interpretation Comments POC-GLUCOSE METER 189 mg/dL 70-110 H TESTED AT [place] [address] ([facility]) (test code = FOSTER Paul [facility] 1538) [address] POCT-GLUCOSE [id number] 23:34:00 Test Item Value Reference Range Interpretation Comments POC-GLUCOSE METER 162 mg/dL 70-110 H TESTED AT [place] [address] ([facility]) (test code = FOSTER Paul [facility] 1538) [address] POCT-GLUCOSE [id number] 18:09:00 Test Item Value Reference Range Interpretation Comments POC-GLUCOSE METER 172 mg/dL 70-110 H TESTED AT [place] [address] ([facility]) (test code = FOSTER Paul [facility] 1538) [address] RAD, ABDOMEN/KUB, 1 VIEW [id number] 17:36:00Reason for exam:->ileusShould this be performed at the bedside?->YesFINAL REPORT Comparison: 01/17/2018 TECHNIQUE: Frontal image of the abdomen FINDINGS: There is a nonspecific bowel gas pattern. Tip of nasogastric projects in the distal stomach. No gross free intraperitoneal air. No acute skeletal abnormality. Signed: Kyle Rome Verified Date/Time: 01/18/2018 17:36:02 Reading Location: [address] Reading Room [id number] 17:10:00 Test Item Value Reference Range Interpretation Comments PARTIAL THROMBOPLASTIN TIME 27.8 seconds 22.5-36.0 ([facility]) (test code = 760) Prior to initiating heparinPOCT-GLUCOSE [id number] 15:22:00 Test Item Value Reference Range Interpretation Comments POC-GLUCOSE METER 126 mg/dL 70-[address] [facility] 6720 ([facility]) (test code = FOSTER Paul [facility] 1538) [address] [id number] 13:02:00 Test Item Value Reference Range Interpretation Comments PHOSPHORUS ([facility]) (test code = 3.8 mg/dL 2.3-4.7 604) BASIC METABOLIC [id number] 13:02:00 Test Item Value Reference Range Interpretation [...] FOR DIALYSIS PATIEN TS. Specimen moderately ictericPOCT-GLUCOSE [id number] 12:11:00 Test Item Value Reference Range Interpretation Comments POC-GLUCOSE METER 113 mg/dL 70-[address] [facility] 6720 (BEAKER) (test code = [place]ER Paul [place] 1538) [address] CBC W/PLT COUNT & AUTO [id number] 12:03:00 Test Item Value Reference Range Interpretation [...] = 413) RAD, CHEST, 1 VIEW, NON [id number] 09:44:00Reason for exam:->pl effusionShould this be performed [...] MDReport Verified Date/Time: 01/18/2018 09:44:26 Reading Location: [address] Transitional Reading Room SPUTUM CULTURE + GRAM [id number] 08:09:00 Test Item Value Reference Range Interpretation Comments CULTURE (BEAKER) 3+ Normal respiratory (test code = 1095) pete present GRAM STAIN RESULT 4+ WBCs (BEAKER) (test code = 1123) GRAM STAIN RESULT 0-5 epithelial cells (BEAKER) (test code = 94669) GRAM STAIN RESULT No organisms seen (BEAKER) (test code = 09212) POCT-GLUCOSE [id number] 07:52:00 Test Item Value Reference Range Interpretation Comments POC-GLUCOSE METER 146 mg/dL 70-[address] [facility] 6720 (BEAKER) (test code = MARIA G[place] 1538) [address] POCT-GLUCOSE [id number] 06:30:00 Test Item Value Reference Range Interpretation Comments POC-GLUCOSE METER 135 mg/dL 70-[address] [facility] 6720 (BEAKER) (test code = FOSTER Paul [place] 1538) [address] POCT-GLUCOSE [id number] 06:30:00 Test Item Value Reference Range Interpretation Comments POC-GLUCOSE METER 130 mg/dL 70-[address] [facility] 6720 (BEAKER) (test code = FOSTER Paul [place] 1538) [address] [id number] 03:56:00 Test Item Value Reference Range Interpretation Comments PHOSPHORUS (BEAKER) (test code = 3.1 mg/dL 2.3-4.7 604) [id number] 03:56:00 Test Item Value Reference Range Interpretation Comments MAGNESIUM (BEAKER) (test code = 2.0 mg/dL 1.6-2.6 627) HEPATIC FUNCTION [id number] 03:56:00 Test Item Value Reference Range Interpretation [...] 6-55 H 347) Specimen moderately ictericVANCOMYCIN LEVEL, [id number] 03:53:00 Test Item Value Reference Range Interpretation Comments VANCOMYCIN RANDOM (BEAKER) (test 18.0 ug/mL code = 523) Reference Range: No [id number] 03:48:00 Test Item Value Reference Range Interpretation Comments CALCIUM (BEAKER) (test code = 697) 8.1 mg/dL 8.4-10.2 L CALCIUM, [id number] 03:34:00 Test Item Value Reference Range Interpretation Comments CALCIUM IONIZED (BEAKER) (test 1.06 mmol/L 1.12-1.27 L code = 698) PH, BLOOD ([facility]) (test code = 7.38 1810) OXYGEN SATURATION, [id number] 03:33:00 Test Item Value Reference Range Interpretation Comments O2 SATURATION (MEASURED) ([facility]) 85.8 % (test code = 1455) POCT-GLUCOSE [id number] 03:26:00 Test Item Value Reference Range Interpretation Comments POC-GLUCOSE METER 144 mg/dL 70-110 H TESTED AT [place] [address] ([facility]) (test code = [facility] 1538) [address] POCT-GLUCOSE [id number] 03:26:00 Test Item Value Reference Range Interpretation Comments POC-GLUCOSE METER 163 mg/dL 70-110 H TESTED AT [place] [address] ([facility]) (test code = [facility] 1538) [address] POCT-GLUCOSE [id number] 01:04:00 Test Item Value Reference Range Interpretation Comments POC-GLUCOSE METER 159 mg/dL 70-110 H TESTED AT [place] [address] ([facility]) (test code = [facility] 1538) [address]228 POCT-GLUCOSE [id number] 00:12:00 Test Item Value Reference Range Interpretation Comments POC-GLUCOSE METER 132 mg/dL 70-110 H TESTED AT [place] [address] ([facility]) (test code = [facility] 1538) [address] LACTIC ACID, ARTERIAL, WHOLE [id number] 23:54:00 Test Item Value Reference Range Interpretation Comments LACTATE BLOOD ARTERIAL (2) 0.7 mmol/L 0.5-2.2 ([facility]) (test code = 2874) Effective 01/04/2016: Units/Reference Range ChangeNew: 0.5-2.2 mmol/L Previous: 5-20 mg/dLSpecimen moderately ictericPOTASSIUM-STAT [id number] 23:30:00 Test Item Value Reference Range Interpretation Comments POTASSIUM ([facility]) (test code = 4.0 meq/L 3.6-5.5 379) BLOOD GAS, [id number] 23:30:00 Test Item Value Reference Range Interpretation Comments PH ARTERIAL ([facility]) (test code = 7.45 7.35-7.45 383) PCO2 [...] code = 1819) 50.0 % SODIUM NA-STAT [id number] 23:30:00 Test Item Value Reference Range Interpretation Comments SODIUM (BEAKER) (test code = 381) 134 meq/L 135-148 L GLUCOSE-STAT [id number] 23:30:00 Test Item Value Reference Range Interpretation Comments GLUCOSE RANDOM (BEAKER) (test code 138 mg/dL 70-110 H = 652) HGB/HCT (H&H) - STAT [id number] 23:30:00 Test Item Value Reference Range Interpretation Comments HEMOGLOBIN (BEAKER) (test code = 9.0 g/dL 13.0-16.8 L 410) HEMATOCRIT (BEAKER) (test code = 26.0 % 40.0-50.0 L 411) CALCIUM, [id number] 23:30:00 Test Item Value Reference Range Interpretation Comments CALCIUM IONIZED (BEAKER) (test 1.04 mmol/L 1.12-1.27 L code = 698) PH, BLOOD (BEAKER) (test code = 7.48 1810) OXYGEN SATURATION, [id number] 23:28:00 Test Item Value Reference Range Interpretation Comments O2 SATURATION (MEASURED) (BEAKER) 82.0 % (test code = 1455) POCT-GLUCOSE [id number] 21:35:00 Test Item Value Reference Range Interpretation Comments POC-GLUCOSE METER 99 mg/dL 70-[address] [facility] 6720 (BEAKER) (test code = [place] [address] 1538) POCT-GLUCOSE [id number] 21:35:00 Test Item Value Reference Range Interpretation Comments POC-GLUCOSE METER 111 mg/dL 70-[address] [facility] 6720 (BEAKER) (test code = [place] 1538) [address] RAD, CHEST, 1 VIEW, NON [id number] 17:08:00Reason for exam:->LIJ placment CVCShould this be [...] [place] Verified Date/Time: 01/17/2018 17:08:24 Reading Location: [facility] Radiology Reading Room GLUCOSE-STAT [id number] 16:33:00 Test Item Value Reference Range Interpretation Comments GLUCOSE RANDOM (BEAKER) (test code 147 mg/dL 70-110 H = 652) POTASSIUM-STAT [id number] 16:32:00 Test Item Value Reference Range Interpretation Comments POTASSIUM (BEAKER) (test code = 4.7 meq/L 3.6-5.5 379) [id number] 15:03:00 Test Item Value Reference Range Interpretation Comments PROCALCITONIN (BEAKER) (test code 5.33 ng/mL <0.05 H = 3036) SEPSIS RISK (ng/mL)Low: 0.05-0.50Intermediate: 0.51-2.00High: >=2.01CT BRAIN WITHOUT IV CONTRAST - [id number] 13:50:00Reason for exam:->altered mental statusFINAL REPORT CT [...] should be excluded clinically. Signed: Dung Granda [facility] Verified Date/Time: 01/17/2018 13:50:42 Reading Location: [facility] Radiology Reading Room CALCIUM, [id number] 12:36:00 Test Item Value Reference Range Interpretation Comments CALCIUM IONIZED (BEAKER) (test 1.09 mmol/L 1.12-1.27 L code = 698) PH, BLOOD (BEAKER) (test code = 7.36 1810) GLUCOSE-STAT [id number] 12:36:00 Test Item Value Reference Range Interpretation Comments GLUCOSE RANDOM (BEAKER) (test code 147 mg/dL 70-110 H = 652) POTASSIUM-STAT [id number] 12:36:00 Test Item Value Reference Range Interpretation Comments POTASSIUM (BEAKER) (test code = 4.7 meq/L 3.6-5.5 379) RAD, ABDOMEN/KUB, 1 VIEW [id number] 08:42:00Reason for exam:->ileusShould this be performed at [...] MDReport Verified Date/Time: 01/17/2018 08:42:09 Reading Location: [facility] Radiology Reading Room CBC W/PLT COUNT & AUTO [id number] 08:18:00 Test Item Value Reference Range Interpretation [...] (test code = 413) HEPARIN ASSAY - [id number] 08:07:00 Test Item Value Reference Range Interpretation Comments UNFRACTIONATED HEPARIN-ANTI 10A < u/ml 0.30-0.70 L (BEAKER) (test code = 1606) Recommendations for Monitoring Unfractionated Heparin Therapeutic Range: 0.3- 0.7 u/mL with continuous IV infusionPOCT-GLUCOSE [id number] 06:09:00 Test Item Value Reference Range Interpretation Comments POC-GLUCOSE METER 143 mg/dL 70-[address] [facility] 6720 (BEAKER) (test code = [place]ER [place] 1538) [address] RAD, CHEST, 1 VIEW, NON [id number] 04:43:00Reason for exam:->acute respiratory insufficiencyShould this be [...] MDReport Verified Date/Time: 01/17/2018 04:43:34 Reading Location: [address] Body Reading Room OXYGEN SATURATION, [id number] 04:13:00 Test Item Value Reference Range Interpretation Comments O2 SATURATION (MEASURED) (BEAKER) 85.7 % (test code = 1455) [id number] 04:06:00 Test Item Value Reference Range Interpretation Comments PHOSPHORUS (BEAKER) (test code = 3.1 mg/dL 2.3-4.7 604) [id number] 04:06:00 Test Item Value Reference Range Interpretation Comments MAGNESIUM (BEAKER) (test code = 2.1 mg/dL 1.6-2.6 627) COMPREHENSIVE METABOLIC [id number] 04:06:00 Test Item Value Reference Range Interpretation [...] DIALYSIS PATIEN TS. Specimen moderately ictericHEPATIC FUNCTION [id number] 04:06:00 Test Item Value Reference Range Interpretation [...] 347) Specimen moderately ictericLACTIC ACID, ARTERIAL, WHOLE [id number] 03:59:00 Test Item Value Reference Range Interpretation Comments LACTATE BLOOD 0.5 mmol/L 0.5-2.2 Specimen sligh tly ARTERIAL (2) (BEAKER) hemoly zed (test code = 2874) Effective 01/04/2016: Units/Reference Range ChangeNew: 0.5-2.2 mmol/L Previous: 5-20 mg/dLSpecimen moderately ictericBLOOD GAS, [id number] 03:58:00 Test Item Value Reference Range Interpretation [...] (test code = 1819) 40.0 % CALCIUM, [id number] 03:58:00 Test Item Value Reference Range Interpretation Comments CALCIUM IONIZED (BEAKER) (test 1.14 mmol/L 1.12-1.27 code = 698) PH, BLOOD (BEAKER) (test code = 7.41 1810) POCT-GLUCOSE [id number] 02:41:00 Test Item Value Reference Range Interpretation Comments POC-GLUCOSE METER 144 mg/dL 70-[address] [facility] 6720 ([facility]) (test code = [place] Paul [place] 1538) [address] POCT-GLUCOSE [id number] 00:30:00 Test Item Value Reference Range Interpretation Comments POC-GLUCOSE METER 171 mg/dL 70-[address] [facility] 6720 ([facility]) (test code = [place] Paul [place] 1538) [address] POTASSIUM-STAT [id number] 00:08:00 Test Item Value Reference Range Interpretation Comments POTASSIUM (BEAKER) (test code = 4.5 meq/L 3.6-5.5 379) POCT-GLUCOSE [id number] 23:30:00 Test Item Value Reference Range Interpretation Comments POC-GLUCOSE METER 159 mg/dL 70-110 H [facility] AT [place] [address] [facility] (test code = FOSTER Paul [place] 1538) [address] POCT-GLUCOSE [id number] 21:08:00 Test Item Value Reference Range Interpretation Comments POC-GLUCOSE METER 194 mg/dL 70-110 H TESTED AT [place] [address] ([facility]) (test code = FOSTER Paul [facility] 1538) [address] POCT-GLUCOSE [id number] 21:08:00 Test Item Value Reference Range Interpretation Comments POC-GLUCOSE METER 230 mg/dL 70-110 H TESTED AT [place] [address] ([facility]) (test code = FOSTER Paul [facility] 1538) [address] CALCIUM, [id number] 19:23:00 Test Item Value Reference Range Interpretation Comments CALCIUM IONIZED (BEAKER) (test 1.14 mmol/L 1.12-1.27 code = 698) PH, BLOOD (BEAKER) (test code = 7.36 1810) POTASSIUM-STAT [id number] 19:23:00 Test Item Value Reference Range Interpretation Comments POTASSIUM (BEAKER) (test code = 5.1 meq/L 3.6-5.5 379) [id number] 17:27:00 Test Item Value Reference Range Interpretation Comments PHOSPHORUS (BEAKER) (test code = 2.2 mg/dL 2.3-4.7 L 604) [id number] 17:27:00 Test Item Value Reference Range Interpretation Comments MAGNESIUM (BEAKER) (test code = 2.1 mg/dL 1.6-2.6 627) PH, [id number] 17:03:00 Test Item Value Reference Range Interpretation Comments PH ARTERIAL (BEAKER) (test code = 383) 7.39 7.35-7.45 POCT-GLUCOSE [id number] 16:43:00 Test Item Value Reference Range Interpretation Comments POC-GLUCOSE METER 95 mg/dL 70-110 TEST[facility] AT [place] [address] [facility] (test code = [place] [address] 1538) POCT-GLUCOSE [id number] 14:41:00 Test Item Value Reference Range Interpretation Comments POC-GLUCOSE METER 134 mg/dL 70-[address] [facility] 67 ([facility]) (test code = FOSTER Paul [facility] 1538) [address] RAD, ABDOMEN/KUB, 1 VIEW [id number] 13:16:00Reason for exam:- >constipationShould this be performed [...] MDReport Verified Date/Time: 01/16/2018 13:16:27 [facility] Electronically signed by: KAY WALTER on01/16/2018 01:16 PMCALCIUM, [id number] 12:38:00 Test Item Value Reference Range Interpretation Comments CALCIUM IONIZED ([facility]) (test 1.14 mmol/L 1.12-1.27 code = 698) PH, BLOOD ([facility]) (test code = 7.40 1810) POCT-GLUCOSE [id number] 12:29:00 Test Item Value Reference Range Interpretation Comments POC-GLUCOSE METER 127 mg/dL 70-[address] [facility] 6720 ([facility]) (test code = FOSTER Paul [facility] 1538) [address] POCT-GLUCOSE [id number] 10:34:00 Test Item Value Reference Range Interpretation Comments POC-GLUCOSE METER 130 mg/dL 70-110 H TESTED AT [place] [address] ([facility]) (test code = FOSTER Paul [facility] 1538) [address]26 POCT-GLUCOSE [id number] 09:10:00 Test Item Value Reference Range Interpretation Comments POC-GLUCOSE METER 151 mg/dL 70-110 H TESTED AT [place] [address] ([facility]) (test code = FOSTER Paul [facility] 3138) [address] HEPARIN ASSAY - [id number] 09:00:00 Test Item Value Reference Range Interpretation [...] H (test code = 413) OXYGEN SATURATION, [id number] 08:30:00 Test Item Value Reference Range Interpretation Comments O2 SATURATION (MEASURED) (BEAKER) 87.1 % (test code = 1455) RAD, CHEST, 1 VIEW, NON [id number] 08:11:00Reason for exam:->acute respiratory insufficiencyShould this be performed at the bedside?->YesFINAL REPORT CLINICAL HISTORY: acute respiratory insufficiency TECHNIQUE: 1 view of the chest. COMPARISON: 01/15/2018 IMPRESSION: The Highwood-Moni catheter has been removed. The supporting lines and tubes are otherwise unchanged. There is no pneumothorax. Mild bilateral perihilar lung opacities have decreased. The cardiomediastinal silhouette is magnified by technique with sternotomy wires. Signed: Lorna Slade Verified Date/Time: 01/16/2018 08:11:02 Reading Location: [facility] Radiology Reading Room POCT- GLUCOSE [id number] 06:43:00 Test Item Value Reference Range Interpretation Comments POC-GLUCOSE METER 107 mg/dL 70-110 TESTED AT [place] [address] ([facility]) (test code = [place]ER [place] 1538) [address] U/S, ABDOMINAL, [id number] 05:25:00Abdomen limited area? Add comment if clarification [...] MDReport Verified Date/Time: 01/16/2018 05:25:06 Reading Location: [facility] C013Y CT Body Reading Room IC ACID, ARTERIAL, WHOLE [id number] 04:06:00 Test Item Value Reference Range Interpretation Comments LACTATE BLOOD ARTERIAL (2) 0.6 mmol/L 0.5-2.2 (BEAKER) (test code = 2874) Effective 01/04/2016: Units/Reference Range ChangeNew: 0.5-2.2 mmol/L Previous: 5-20 mg/dLSpecimen moderately [id number] 04:00:00 Test Item Value Reference Range Interpretation Comments PHOSPHORUS (BEAKER) (test code = 2.2 mg/dL 2.3-4.7 L 604) [id number] 04:00:00 Test Item Value Reference Range Interpretation Comments MAGNESIUM (BEAKER) (test code = 2.0 mg/dL 1.6-2.6 627) [id number] 04:00:00 Test Item Value Reference Range Interpretation Comments CALCIUM (BEAKER) (test code = 697) 8.5 mg/dL 8.4-10.2 COMPREHENSIVE METABOLIC [id number] 04:00:00 Test Item Value Reference Range Interpretation [...] DIALYSIS PATIEN TS. Specimen moderately ictericHEPATIC FUNCTION [id number] 04:00:00 Test Item Value Reference Range Interpretation [...] 6-55 H 347) Specimen moderately ictericBLOOD GAS, [id number] 03:51:00 Test Item Value Reference Range Interpretation [...] (test 36.1 C code = 1818) FIO2 ([facility]) (test code = 1819) 60.0 % PROTHROMBIN [id number] 03:51:00 Test Item Value Reference Range Interpretation Comments PROTIME ([facility]) (test code = 15.2 seconds 11.7-14.7 H 759) INR ([facility]) (test code = 370) 1.2 <=5.9 RECOMMENDED COUMADIN/WARFARIN INR THERAPY RANGESSTANDARD DOSE: 2.0 - 3.0 Includes: PROPHYLAXIS forvenous thrombosis, systemic embolization; TREATMENT for venous thrombosis and/or pulmonary embolus.HIGH RISK: Target INR is 2.5-3.5 for patients with mechanical heart valves.CALCIUM, [id number] 03:51:00 Test Item Value Reference Range Interpretation Comments CALCIUM IONIZED ([facility]) (test 1.17 mmol/L 1.12-1.27 code = 698) PH, BLOOD ([facility]) (test code = 7.42 1810) POCT-GLUCOSE [id number] 02:08:00 Test Item Value Reference Range Interpretation Comments POC-GLUCOSE METER 110 mg/dL 70-110 TESTED AT [place] [address] ([facility]) [facility] 1538) [address] POCT-GLUCOSE [id number] 01:14:00 Test Item Value Reference Range Interpretation Comments POC-GLUCOSE METER 107 mg/dL 70-110 TESTED AT [place] [address] ([facility]) (test [facility] = [facility] 1538) [address] POCT-GLUCOSE [id number] 00:29:00 Test Item Value Reference Range Interpretation Comments POC-GLUCOSE METER 129 mg/dL 70-110 H TESTED AT [place] [address] ([facility]) (test code = [facility] [place] 1538) [address] POCT-GLUCOSE [id number] 23:07:00 Test Item Value Reference Range Interpretation Comments POC-GLUCOSE METER 152 mg/dL 70-110 H TESTED AT [place] [address] ([facility]) (test code = [facility] Humberto [facility] 1538) [address] POCT-GLUCOSE [id number] 22:09:00 Test Item Value Reference Range Interpretation Comments POC-GLUCOSE METER 171 mg/dL 70-110 H TESTED AT [place] [address] ([facility]) (test code = [facility] 1538) [address] POCT-GLUCOSE [id number] 21:13:00 Test Item Value Reference Range Interpretation Comments POC-GLUCOSE METER 171 mg/dL 70-110 H TESTED AT [place] [address] ([facility]) (test code = [facility] 1538) [address] CALCIUM, [id number] 20:50:00 Test Item Value Reference Range Interpretation Comments CALCIUM IONIZED ([facility]) (test 1.15 mmol/L 1.12-1.27 code = 698) PH, BLOOD ([facility]) (test code = 7.34 1810) POCT-GLUCOSE [id number] 20:21:00 Test Item Value Reference Range Interpretation Comments POC-GLUCOSE METER 206 mg/dL 70-110 H TESTED AT [place] [address] ([facility]) (test code = [facility] 1538) [address] POCT-GLUCOSE [id number] 19:16:00 Test Item Value Reference Range Interpretation Comments POC-GLUCOSE METER 197 mg/dL 70-110 H TESTED AT [place] [address] ([facility]) (test code = [facility] 1538) [address] [id number] 17:15:00 Test Item Value Reference Range Interpretation Comments PHOSPHORUS ([facility]) (test code = 4.1 mg/dL 2.3-4.7 604) [id number] 17:15:00 Test Item Value Reference Range Interpretation Comments MAGNESIUM ([facility]) (test code = 1.9 mg/dL 1.6-2.6 627) EEG AWAKE AND [id number] 14:56:00For STAT EEG- after 5 PM weekdays, weekends and holidays, page the on-call EEG TechReason for exam:->AMSShould this be performed at the bedside?->YesDate(s) of EE01/15/2018DATE OF REPORT: 01/15/2018ACC: [id number] Number: [id number] Location: Inpatient ICUStart time: 13:18Stop time: 13:40ICD-10: R41.82CPT Code: 45245 HISTORY: 62 y/o man with hxof AFib, [...] Kwon MD, MSClinic al Neurophysiology/Epilepsy Attending HEPARIN [id number] 13:21:00 Test Item Value Reference Range Interpretation Comments HEPARIN ANTIBODY ([facility]) (test code Negative Negative = 646) HEPARIN ANTIBODY OD ([facility]) (test 0.076 <0.400 code = 2659) 4T TOTAL SCORE ([facility]) (test code = 5 7205) Probability of HIT based on scoring system: 6-8 = High probability; 4-5 = intermediate probability;0-3 = low probabilityPOCT-GLUCOSE [id number] 12:26:00 Test Item Value Reference Range Interpretation Comments POC-GLUCOSE METER 128 mg/dL 70-[address] [facility] 6720 ([employer]) (test code = FOSTER Paul RENE BRANDON 1538) [address] FIBRIN SOLUBLE [id number] 11:02:00 Test Item Value Reference Range Interpretation Comments FIBRIN SOLUBLE MONOMER (BEAKER) Negative (test code = 1416) HEPARIN ASSAY - [id number] 10:20:00 Test Item Value Reference Range Interpretation Comments UNFRACTIONATED HEPARIN-ANTI 10A < u/ml 0.30-0.70 L (BEAKER) (test code = 1606) Recommendations for Monitoring Unfractionated Heparin Therapeutic Range: 0.3- 0.7 u/mL with continuous IV [id number] 10:14:00 Test Item Value Reference Range Interpretation [...] of thrombosis is within 95-100% range. GLUCOSE-STAT [id number] 10:03:00 Test Item Value Reference Range Interpretation Comments GLUCOSE RANDOM (BEAKER) (test code 151 mg/dL 70-110 H = 652) CALCIUM, [id number] 10:02:00 Test Item Value Reference Range Interpretation Comments CALCIUM IONIZED (BEAKER) (test 1.13 mmol/L 1.12-1.27 code = 698) PH, BLOOD (BEAKER) (test code = 7.36 1810) POTASSIUM-STAT [id number] 10:01:00 Test Item Value Reference Range Interpretation Comments POTASSIUM (BEAKER) (test code = 4.3 meq/L 3.6-5.5 379) CBC W/PLT COUNT & AUTO [id number] 07:43:00 Test Item Value Reference Range Interpretation [...] = 2801) RAD, CHEST, 1 VIEW, NON [id number] 04:00:00Reason for exam:->acute respiratory insufficiencyShould this be performed at the bedside?->Yes Addendum BeginsREPORT STATUS:A Correction: Comparison is made to previous dated 01/14/2018. Signed: Kellen Parra MDReport Verified Date/Time: 01/15/2018 04:00:43 Reading Location: [address] Reading RoomAddendum EndsFINAL REPORT CLINICAL ADEEL CATION: Respiratory insufficiency Comparison: 01/15/2018 The cardiomediastinal contours are stable. Central pulmonary vascular congestion and bilateral parenchymal opacities are unchanged. There is no pneumothorax. Support lines are stable. Signed: Kellen Parra MDReport Verified Date/Time: 01/15/201803:46:27 Reading Location: [address] Reading Room [id number] 03:36:00 Test Item Value Reference Range Interpretation Comments PHOSPHORUS (BEAKER) (test code = 2.7 mg/dL 2.3-4.7 604) [id number] 03:36:00 Test Item Value Reference Range Interpretation Comments MAGNESIUM (BEAKER) (test code = 2.0 mg/dL 1.6-2.6 627) COMPREHENSIVE METABOLIC [id number] 03:36:00 Test Item Value Reference Range Interpretation [...] DIALYSIS PATIEN TS. Specimen slightly ictericHEPATIC FUNCTION [id number] 03:36:00 Test Item Value Reference Range Interpretation [...] U/L 6-55 H 347) Specimen slightly ictericPROTHROMBIN TIME/[id number] 03:35:00 Test Item Value Reference Range Interpretation [...] mmol/L Previous: 5-20 mg/dLSpecimen slightly ictericBLOOD GAS, [id number] 03:29:00 Test Item Value Reference Range Interpretation [...] code = 1819) 40.0 % OXYGEN SATURATION, [id number] 03:26:00 Test Item Value Reference Range Interpretation Comments O2 SATURATION (MEASURED) (BEAKER) 72.5 % (test code = 1455) CALCIUM, [id number] 00:17:00 Test Item Value Reference Range Interpretation Comments CALCIUM IONIZED (BEAKER) (test 1.19 mmol/L 1.12-1.27 code = 698) PH, BLOOD (BEAKER) (test code = 7.36 1810) POCT-GLUCOSE [id number] 00:15:00 Test Item Value Reference Range Interpretation Comments POC-GLUCOSE METER 144 mg/dL 70-[address] [facility] [address] [facility] (test code = [place] [address]) [address] POCT-GLUCOSE [id number] 22:43:00 Test Item Value Reference Range Interpretation Comments POC-GLUCOSE METER 98 mg/dL 70-[address] [facility] [address] [facility] (test code = [place] [address] 1538) POCT-GLUCOSE [id number] 22:43:00 Test Item Value Reference Range Interpretation Comments POC-GLUCOSE METER 80 mg/dL 70-[address] [facility] [address] (BEAKER) (test code = [place] [id number] 5927) VANCOMYCIN LEVEL, [id number] 20:20:00 Test Item Value Reference Range Interpretation Comments VANCOMYCIN TROUGH (BEAKER) (test 20.1 ug/mL 10.0-20.0 H code = 522) Before vanc [id number] 16:52:00 Test Item Value Reference Range Interpretation Comments PHOSPHORUS (BEAKER) (test code = 1.7 mg/dL 2.3-4.7 L 604) [id number] 16:52:00 Test Item Value Reference Range Interpretation Comments MAGNESIUM (BEAKER) (test code = 2.3 mg/dL 1.6-2.6 627) [id number] 16:39:00 Test Item Value Reference Range Interpretation Comments AMMONIA (BEAKER) (test code = 348) 32 mol/L 18-72 PH, [id number] 16:01:00 Test Item Value Reference Range Interpretation Comments PH ARTERIAL (BEAKER) (test code = 383) 7.42 7.35-7.45 GLUCOSE-STAT [id number] 16:01:00 Test Item Value Reference Range Interpretation Comments GLUCOSE RANDOM (BEAKER) (test code = 95 mg/dL 70-110 652) POTASSIUM-STAT [id number] 16:01:00 Test Item Value Reference Range Interpretation Comments POTASSIUM (BEAKER) (test code = 4.3 meq/L 3.6-5.5 379) CALCIUM, [id number] 16:01:00 Test Item Value Reference Range Interpretation Comments CALCIUM IONIZED (BEAKER) (test 1.28 mmol/L 1.12-1.27 H code = 698) PH, BLOOD (BEAKER) (test code = 7.42 1810) CALCIUM, [id number] 12:19:00 Test Item Value Reference Range Interpretation Comments CALCIUM IONIZED (BEAKER) (test 1.36 mmol/L 1.12-1.27 H code = 698) PH, BLOOD (BEAKER) (test code = 7.41 1810) GLUCOSE-STAT [id number] 12:17:00 Test Item Value Reference Range Interpretation Comments GLUCOSE RANDOM (BEAKER) (test code = 94 mg/dL 70-110 652) POTASSIUM-STAT [id number] 12:17:00 Test Item Value Reference Range Interpretation Comments POTASSIUM (BEAKER) (test code = 4.3 meq/L 3.6-5.5 379) [id number] 11:34:00 Test Item Value Reference Range Interpretation Comments MAGNESIUM (BEAKER) (test code = 2.1 mg/dL 1.6-2.6 627) BASIC METABOLIC [id number] 11:34:00 Test Item Value Reference Range Interpretation [...] DIALYSIS PATIEN TS. Specimen slightly ictericHEPATIC FUNCTION [id number] 11:34:00 Test Item Value Reference Range Interpretation [...] 6-55 H 347) Specimen slightly ictericBLOOD GAS, [id number] 09:44:00 Test Item Value Reference Range Interpretation [...] (test code = 1819) 100.0 % GLUCOSE-STAT [id number] 09:42:00 Test Item Value Reference Range Interpretation Comments GLUCOSE RANDOM (BEAKER) (test code = 95 mg/dL 70-110 652) POTASSIUM-STAT [id number] 09:42:00 Test Item Value Reference Range Interpretation Comments POTASSIUM (BEAKER) (test code = 4.5 meq/L 3.6-5.5 379) CALCIUM, [id number] 09:38:00 Test Item Value Reference Range Interpretation Comments CALCIUM IONIZED (BEAKER) (test 1.26 mmol/L 1.12-1.27 code = 698) PH, BLOOD (BEAKER) (test code = 7.41 1810) HEPARIN ASSAY - [id number] 08:44:00 Test Item Value Reference Range Interpretation Comments UNFRACTIONATED HEPARIN-ANTI 10A < u/ml 0.30-0.70 L (BEAKER) (test code = 1606) Recommendations for Monitoring Unfractionated Heparin Therapeutic Range: 0.3- 0.7 u/mL with continuous IV infusionGLUCOSE-STAT [id number] 06:41:00 Test Item Value Reference Range Interpretation [...] (test 0.0 % 0.0-5.0 code = 1414) [id number] 05:05:00 Test Item Value Reference Range Interpretation Comments PHOSPHORUS (BEAKER) (test code = 2.5 mg/dL 2.3-4.7 604) [id number] 05:05:00 Test Item Value Reference Range Interpretation Comments MAGNESIUM (BEAKER) (test code = 2.1 mg/dL 1.6-2.6 627) HEPATIC FUNCTION [id number] 05:05:00 Test Item Value Reference Range Interpretation [...] 1266 U/L 6-55 H 347) Specimen slightly [id number] 05:05:00 Test Item Value Reference Range Interpretation Comments CALCIUM (BEAKER) (test code = 697) 9.0 mg/dL 8.4-10.2 LACTATE DEHYDROGENASE (LDH)2018-01-14 05:05:00 Test Item Value Reference Range Interpretation Comments LACTATE DEHYDROGENASE (BEAKER) (test 667 U/L 125-220 H code = 635) PROTHROMBIN TIME/[id number] 05:05:00 Test Item Value Reference Range Interpretation Comments PROTIME (BEAKER) (test code = 15.2 seconds 11.7-14.7 H 759) INR (BEAKER) (test code = 370) 1.2 <=5.9 RECOMMENDED COUMADIN/WARFARIN INR THERAPY RANGESSTANDARD DOSE: 2.0 - 3.0 Includes: PROPHYLAXIS forvenous thrombosis, systemic embolization; TREATMENT for venous thrombosis and/or pulmonary embolus.HIGH RISK: Target INR is 2.5-3.5 for patients with mechanical heart valves.[id number] 05:05:00 Test Item Value Reference Range Interpretation Comments FIBRINOGEN LEVEL (BEAKER) (test 280 mg/dl 225-434 code = 658) RAD, CHEST, 1 VIEW, NON [id number] 04:57:00Reason for exam:- >impella/ECMO/intubationShould this be performed at the bedside?->YesFINAL REPORT CLINICAL INDICATION: Support lines. Comparison: 01/13/2018 The cardiomediastinal contours are stable. Cardiac opacities may reflect atelectasis but pneumonitis should be excluded clinically. There is no pneumothorax. Support lines are stable. Signed: Kellen Parra MDReport Verified Date/Time: 01/14/2018 04:57:02 Reading Location: [address] Reading Room LACTIC ACID, ARTERIAL, WHOLE [id number] 04:55:00 Test Item Value Reference Range Interpretation [...] H (BEAKER) (test code = 413) CALCIUM, [id number] 04:39:00 Test Item Value Reference Range Interpretation Comments CALCIUM IONIZED (BEAKER) (test 1.20 mmol/L 1.12-1.27 code = 698) PH, BLOOD (BEAKER) (test code = 7.37 1810) OXYGEN SATURATION, [id number] 04:38:00 Test Item Value Reference Range Interpretation Comments O2 SATURATION (MEASURED) (BEAKER) 75.3 % (test code = 1455) BLOOD GAS, [id number] 04:37:00 Test Item Value Reference Range Interpretation [...] (test code = 1819) 40.0 % GLUCOSE-STAT [id number] 04:37:00 Test Item Value Reference Range Interpretation Comments GLUCOSE RANDOM (BEAKER) (test code 154 mg/dL 70-110 H = 652) GLUCOSE-STAT [id number] 02:52:00 Test Item Value Reference Range Interpretation Comments GLUCOSE RANDOM (BEAKER) (test code 179 mg/dL 70-110 H = 652) GLUCOSE-STAT [id number] 01:26:00 Test Item Value Reference Range Interpretation Comments GLUCOSE RANDOM (BEAKER) (test code 195 mg/dL 70-110 H = 652) [id number] 00:08:00 Test Item Value Reference Range Interpretation Comments POTASSIUM (BEAKER) (test code = 4.2 meq/L 3.5-5.1 379) [id number] 00:08:00 Test Item Value Reference Range Interpretation Comments GLUCOSE RANDOM (BEAKER) (test code 237 mg/dL 70-105 H = 652) CBC W/PLT COUNT & AUTO [id number] 22:28:00 Test Item Value Reference Range Interpretation [...] = 413) RAD, CHEST, 1 VIEW, NON [id number] 21:50:00Reason for exam:->chest tubes/intubationShould this be performed [...] MDReport Verified Date/Time: 01/13/2018 21:50:50 Reading Location: [address] Consult Reading Room THROMBOELASTOGRAPH (TEG)2018-01-13 [...] % 0.0-5.0 code = 1414) BASIC METABOLIC [id number] 21:35:00 Test Item Value Reference Range Interpretation [...] APPLICABLE FOR DIALYSIS PATIEN TS. Specimen slightly [id number] 21:06:00 Test Item Value Reference Range Interpretation Comments PHOSPHORUS (BEAKER) (test code = 3.7 mg/dL 2.3-4.7 604) [id number] 21:06:00 Test Item Value Reference Range Interpretation Comments MAGNESIUM (BEAKER) (test code = 2.0 mg/dL 1.6-2.6 627) LACTIC ACID, ARTERIAL, WHOLE [id number] 21:06:00 Test Item Value Reference Range Interpretation Comments LACTATE BLOOD ARTERIAL (2) 1.8 mmol/L 0.5-2.2 (BEAKER) (test code = 2874) Effective 01/04/2016: Units/Reference Range ChangeNew: 0.5-2.2 mmol/L Previous: 5-20 mg/dLSpecimen slightly [id number] 21:01:00 Test Item Value Reference Range Interpretation Comments PARTIAL THROMBOPLASTIN TIME 35.1 seconds 22.5-36.0 (BEAKER) (test code = 760) [id number] 21:00:00 Test Item Value Reference Range Interpretation Comments FIBRINOGEN LEVEL (BEAKER) (test 253 mg/dl 225-434 code = 658) PROTHROMBIN [id number] 20:59:00 Test Item Value Reference Range Interpretation Comments PROTIME (BEAKER) (test code = 16.4 seconds 11.7-14.7 H 759) INR (BEAKER) (test code = 370) 1.3 <=5.9 RECOMMENDED COUMADIN/WARFARIN INR THERAPY RANGESSTANDARD DOSE: 2.0 - 3.0 Includes: PROPHYLAXIS forvenous thrombosis, systemic embolization; TREATMENT for venous thrombosis and/or pulmonary embolus.HIGH RISK: Target INR is 2.5-3.5 for patients with mechanical heart valves.BLOOD GAS, [id number] 20:47:00 Test Item Value Reference Range Interpretation [...] (test code = 1819) 40.0 % GLUCOSE-STAT [id number] 20:47:00 Test Item Value Reference Range Interpretation Comments GLUCOSE RANDOM (BEAKER) (test code 235 mg/dL 70-110 H = 652) CALCIUM, [id number] 20:47:00 Test Item Value Reference Range Interpretation Comments CALCIUM IONIZED (BEAKER) (test 0.97 mmol/L 1.12-1.27 L code = 698) PH, BLOOD (BEAKER) (test code = 7.39 1810) HGB/HCT (H&H) - STAT [id number] 20:46:00 Test Item Value Reference Range Interpretation Comments HEMOGLOBIN (BEAKER) (test code = 7.7 g/dL 13.0-16.8 L 410) HEMATOCRIT (BEAKER) (test code = 23.0 % 40.0-50.0 L 411) POTASSIUM-STAT [id number] 20:46:00 Test Item Value Reference Range Interpretation Comments POTASSIUM (BEAKER) (test code = 3.4 meq/L 3.6-5.5 L 379) SODIUM NA-STAT [id number] 20:46:00 Test Item Value Reference Range Interpretation Comments SODIUM (BEAKER) (test code = 381) 133 meq/L 135-148 L OXYGEN SATURATION, [id number] 20:42:00 Test Item Value Reference Range Interpretation Comments O2 SATURATION (MEASURED) (BEAKER) 74.1 % (test code = 1455) BLOOD GAS, [id number] 18:58:00 Test Item Value Reference Range Interpretation [...] code = 1819) 100.0 % SODIUM NA-STAT [id number] 18:58:00 Test Item Value Reference Range Interpretation Comments SODIUM (BEAKER) (test code = 381) 131 meq/L 135-148 L POTASSIUM-STAT [id number] 18:58:00 Test Item Value Reference Range Interpretation Comments POTASSIUM (BEAKER) (test code = 3.4 meq/L 3.6-5.5 L 379) GLUCOSE-STAT [id number] 18:58:00 Test Item Value Reference Range Interpretation Comments GLUCOSE RANDOM (BEAKER) (test code 214 mg/dL 70-110 H = 652) HGB/HCT (H&H) - STAT [id number] 18:58:00 Test Item Value Reference Range Interpretation [...] % 0.0-5.0 code = 1414) BLOOD GAS, [id number] 18:11:00 Test Item Value Reference Range Interpretation [...] code = 1819) 97.0 % SODIUM NA-STAT [id number] 18:11:00 Test Item Value Reference Range Interpretation Comments SODIUM (BEAKER) (test code = 381) 132 meq/L 135-148 L GLUCOSE-STAT [id number] 18:11:00 Test Item Value Reference Range Interpretation Comments GLUCOSE RANDOM (BEAKER) (test code 200 mg/dL 70-110 H = 652) HGB/HCT (H&H) - STAT [id number] 18:11:00 Test Item Value Reference Range Interpretation Comments HEMOGLOBIN (BEAKER) (test code = 8.2 g/dL 13.0-16.8 L 410) HEMATOCRIT (BEAKER) (test code = 24.0 % 40.0-50.0 L 411) POTASSIUM-STAT [id number] 18:07:00 Test Item Value Reference Range Interpretation Comments POTASSIUM (BEAKER) (test code = 3.5 meq/L 3.6-5.5 L 379) [id number] 16:37:00 Test Item Value Reference Range Interpretation Comments PHOSPHORUS (BEAKER) (test code = 2.5 mg/dL 2.3-4.7 604) [id number] 16:37:00 Test Item Value Reference Range Interpretation Comments MAGNESIUM (BEAKER) (test code = 2.1 mg/dL 1.6-2.6 627) [id number] 16:29:00 Test Item Value Reference Range Interpretation [...] for patients with mechanical heart valves.BLOOD GAS, [id number] 16:16:00 Test Item Value Reference Range Interpretation [...] (test code = 1819) 40.0 % CALCIUM, [id number] 16:14:00 Test Item Value Reference Range Interpretation Comments CALCIUM IONIZED (BEAKER) (test 1.09 mmol/L 1.12-1.27 L code = 698) PH, BLOOD (BEAKER) (test code = 7.64 1810) GLUCOSE-STAT [id number] 16:12:00 Test Item Value Reference Range Interpretation Comments GLUCOSE RANDOM (BEAKER) (test code 182 mg/dL 70-110 H = 652) CALCIUM, [id number] 12:53:00 Test Item Value Reference Range Interpretation Comments CALCIUM IONIZED (BEAKER) (test 1.12 mmol/L 1.12-1.27 code = 698) PH, BLOOD (BEAKER) (test code = 7.51 1810) BLOOD GAS, [id number] 12:53:00 Test Item Value Reference Range Interpretation [...] 1819) 40.0 % HGB/HCT (H&H) - STAT [id number] 12:53:00 Test Item Value Reference Range Interpretation Comments HEMOGLOBIN (BEAKER) (test code = 8.3 g/dL 13.0-16.8 L 410) HEMATOCRIT (BEAKER) (test code = 24.0 % 40.0-50.0 L 411) GLUCOSE-STAT [id number] 12:53:00 Test Item Value Reference Range Interpretation Comments GLUCOSE RANDOM (BEAKER) (test code 185 mg/dL 70-110 H = 652) POTASSIUM-STAT [id number] 12:52:00 Test Item Value Reference Range Interpretation Comments POTASSIUM (BEAKER) (test code = 3.7 meq/L 3.6-5.5 379) CBC W/PLT COUNT & AUTO [id number] 11:04:00 Test Item Value Reference Range Interpretation [...] 0-0 H (test code = 413) POTASSIUM-STAT [id number] 10:49:00 Test Item Value Reference Range Interpretation Comments POTASSIUM (BEAKER) (test code = 3.8 meq/L 3.6-5.5 379) HEPARIN ASSAY - [id number] 09:55:00 Test Item Value Reference Range Interpretation Comments UNFRACTIONATED HEPARIN-ANTI 10A 0.14 u/ml 0.30-0.70 L (BEAKER) (test code = 1606) Recommendations for Monitoring Unfractionated Heparin Therapeutic Range: 0.3- 0.7 u/mL with continuous IV [id number] 09:54:00 Test Item Value Reference Range Interpretation Comments PARTIAL THROMBOPLASTIN TIME 57.6 seconds 22.5-36.0 H (BEAKER) (test code = 760) BLOOD GAS, [id number] 09:33:00 Test Item Value Reference Range Interpretation [...] (test code = 1819) 40.0 % GLUCOSE-STAT [id number] 09:33:00 Test Item Value Reference Range Interpretation Comments GLUCOSE RANDOM (BEAKER) (test code 192 mg/dL 70-110 H = 652) GLUCOSE-STAT [id number] 09:33:00 Test Item Value Reference Range Interpretation Comments GLUCOSE RANDOM (BEAKER) (test code 192 mg/dL 70-110 H = 652) CALCIUM, [id number] 09:32:00 Test Item Value Reference Range Interpretation Comments CALCIUM IONIZED (BEAKER) (test 1.15 mmol/L 1.12-1.27 code = 698) PH, BLOOD (BEAKER) (test code = 7.51 1810) BLOOD GAS, [id number] 07:23:00 Test Item Value Reference Range Interpretation [...] % 0.0-5.0 code = 1414) BLOOD GAS, [id number] 06:13:00 Test Item Value Reference Range Interpretation [...] code = 1819) 40.0 % BLOOD GAS, [id number] 05:13:00 Test Item Value Reference Range Interpretation [...] (BEAKER) (test code = 1819) 100.0 % [id number] 04:41:00 Test Item Value Reference Range Interpretation Comments PARTIAL THROMBOPLASTIN TIME 61.3 seconds 22.5-36.0 H (BEAKER) (test code = 760) RAD, CHEST, 1 VIEW, NON [id number] 04:38:00Reason for exam:- >impella/ECMO/intubationShould this be performed at the bedside?->YesFINAL REPORT CLINICAL INDICATION: Support lines. Comparison: 01/12/2018 The cardiomediastinal contours are stable. Central pulmonary vascular prominence and bilateral parenchymalopacities are previous. There is no pneumothorax. Support lines are stable. Signed: Kellen Parra MDReport Verified Date/Time: 01/13/2018 04:38:41 Reading Location: [address] Reading Room HEPATIC FUNCTION [id number] 04:25:00 Test Item Value Reference Range Interpretation [...] 2232 U/L 6-55 H 347) Specimen slightly [id number] 04:19:00 Test Item Value Reference Range Interpretation Comments PHOSPHORUS (BEAKER) (test code = 4.1 mg/dL 2.3-4.7 604) [id number] 04:19:00 Test Item Value Reference Range Interpretation Comments MAGNESIUM (BEAKER) (test code = 1.9 mg/dL 1.6-2.6 627) [id number] 04:19:00 Test Item Value Reference Range Interpretation Comments CALCIUM (BEAKER) (test code = 697) 8.6 mg/dL 8.4-10.2 BASIC METABOLIC [id number] 04:19:00 Test Item Value Reference Range Interpretation [...] 1658 U/L 125-220 H code = 635) [id number] 04:16:00 Test Item Value Reference Range Interpretation Comments FIBRINOGEN LEVEL (BEAKER) (test 299 mg/dl 225-434 code = 658) LACTIC ACID, ARTERIAL, WHOLE [id number] 04:16:00 Test Item Value Reference Range Interpretation Comments LACTATE BLOOD ARTERIAL (2) 0.8 mmol/L 0.5-2.2 (BEAKER) (test code = 2874) Effective 01/04/2016: Units/Reference Range ChangeNew: 0.5-2.2 mmol/L Previous: 5-20 mg/dLSpecimen slightly ictericPROTHROMBIN [id number] 04:15:00 Test Item Value Reference Range Interpretation Comments PROTIME (BEAKER) (test code = 15.8 seconds 11.7-14.7 H 759) INR (BEAKER) (test code = 370) 1.3 <=5.9 RECOMMENDED COUMADIN/WARFARIN INR THERAPY RANGESSTANDARD DOSE: 2.0 - 3.0 Includes: PROPHYLAXIS forvenous thrombosis, systemic embolization; TREATMENT for venous thrombosis and/or pulmonary embolus.HIGH RISK: Target INR is 2.5-3.5 for patients with mechanical heart valves.CALCIUM, [id number] 04:04:00 Test Item Value Reference Range Interpretation Comments CALCIUM IONIZED (BEAKER) (test 1.15 mmol/L 1.12-1.27 code = 698) PH, BLOOD (BEAKER) (test code = 7.33 1810) BLOOD GAS, [id number] 04:03:00 Test Item Value Reference Range Interpretation [...] (test code = 1819) 40.0 % PLATELET [id number] 03:58:00 Test Item Value Reference Range Interpretation Comments PLATELET COUNT (BEAKER) (test code 89 K/CU MM 150-450 L = 756) OXYGEN SATURATION, [id number] 03:57:00 Test Item Value Reference Range Interpretation Comments O2 SATURATION (MEASURED) (BEAKER) 79.4 % (test code = 1455) BLOOD GAS, [id number] 01:19:00 Test Item Value Reference Range Interpretation [...] (test code = 1819) 40.0 % GLUCOSE-STAT [id number] 01:19:00 Test Item Value Reference Range Interpretation Comments GLUCOSE RANDOM (BEAKER) (test code 177 mg/dL 70-110 H = 652) POTASSIUM-STAT [id number] 01:18:00 Test Item Value Reference Range Interpretation Comments POTASSIUM (BEAKER) (test code = 4.0 meq/L 3.6-5.5 379) CALCIUM, [id number] 01:17:00 Test Item Value Reference Range Interpretation [...] (test 0.0 % 0.0-5.0 code = 1414) [id number] 20:36:00 Test Item Value Reference Range Interpretation Comments POTASSIUM (BEAKER) (test code = 4.2 meq/L 3.5-5.1 379) [id number] 20:36:00 Test Item Value Reference Range Interpretation Comments MAGNESIUM (BEAKER) (test code = 1.8 mg/dL 1.6-2.6 627) [id number] 20:36:00 Test Item Value Reference Range Interpretation Comments PHOSPHORUS (BEAKER) (test code = 3.5 mg/dL 2.3-4.7 604) LACTIC ACID, ARTERIAL, WHOLE [id number] 20:33:00 Test Item Value Reference Range Interpretation Comments LACTATE BLOOD ARTERIAL (2) 0.8 mmol/L 0.5-2.2 (BEAKER) (test code = 2874) Effective 01/04/2016: Units/Reference Range ChangeNew: 0.5-2.2 mmol/L Previous: 5-20 mg/dLSpecimen slightly ictericBLOOD GAS, [id number] 20:20:00 Test Item Value Reference Range Interpretation [...] (test code = 1819) 40.0 % GLUCOSE-STAT [id number] 20:20:00 Test Item Value Reference Range Interpretation Comments GLUCOSE RANDOM (BEAKER) (test code 180 mg/dL 70-110 H = 652) [id number] 18:34:00 Test Item Value Reference Range Interpretation Comments GLUCOSE RANDOM (BEAKER) (test code 218 mg/dL 70-105 H = 652) BLOOD GAS, [id number] 18:18:00 Test Item Value Reference Range Interpretation [...] (BEAKER) (test code = 1819) 40.0 % [id number] 17:12:00 Test Item Value Reference Range Interpretation Comments PARTIAL THROMBOPLASTIN TIME 54.1 seconds 22.5-36.0 H (BEAKER) (test code = 760) [id number] 17:12:00 Test Item Value Reference Range Interpretation Comments FIBRINOGEN LEVEL (BEAKER) (test 285 mg/dl 225-434 code = 658) PROTHROMBIN TIME/[id number] 17:10:00 Test Item Value Reference Range Interpretation [...] ChangeNew: 0.5-2.2 mmol/L Previous: 5-20 mg/dLSpecimen slightly [id number] 17:01:00 Test Item Value Reference Range Interpretation Comments POTASSIUM (BEAKER) (test code = 4.5 meq/L 3.5-5.1 379) [id number] 17:01:00 Test Item Value Reference Range Interpretation Comments GLUCOSE RANDOM (BEAKER) (test code 239 mg/dL 70-105 H = 652) PLATELET [id number] 16:46:00 Test Item Value Reference Range Interpretation Comments PLATELET COUNT (BEAKER) (test code 86 K/CU MM 150-450 L = 756) BLOOD GAS, [id number] 16:36:00 Test Item Value Reference Range Interpretation [...] (test 37.0 C code = 1818) CALCIUM, [id number] 16:36:00 Test Item Value Reference Range Interpretation Comments CALCIUM IONIZED (BEAKER) (test 1.08 mmol/L 1.12-1.27 L code = 698) PH, BLOOD (BEAKER) (test code = 7.46 1810) [id number] 15:00:00 Test Item Value Reference Range Interpretation Comments POTASSIUM (BEAKER) (test code = 4.7 meq/L 3.5-5.1 379) [id number] 15:00:00 Test Item Value Reference Range Interpretation Comments GLUCOSE RANDOM (BEAKER) (test code 210 mg/dL 70-105 H = 652) BLOOD GAS, [id number] 14:42:00 Test Item Value Reference Range Interpretation [...] 40.0 % RAD, CHEST, 1 VIEW, NON [id number] 14:41:00Reason for exam:->chest tube insertionFINAL REPORT CHEST [...] MDReport Verified Date/Time: 01/12/2018 14:41:22 Reading Location: [address] Transitional Reading Room MBOELASTOGRAPH (TEG)2018-01-12 12:43:00 [...] (test 0.0 % 0.0-5.0 code = 1414) [id number] 11:23:00 Test Item Value Reference Range Interpretation [...] exclusion of thrombosis is within 95-100% range. [id number] 10:10:00 Test Item Value Reference Range Interpretation Comments MAGNESIUM (BEAKER) 2.1 mg/dL 1.6-2.6 Specimen slightly (test code = 627) hemolyzed [id number] 10:10:00 Test Item Value Reference Range Interpretation Comments PHOSPHORUS (BEAKER) 4.2 mg/dL 2.3-4.7 Specimen slightly (test code = 604) hemolyzed [id number] 10:10:00 Test Item Value Reference Range Interpretation Comments POTASSIUM (BEAKER) 5.0 meq/L 3.5-5.1 Specimen slightly (test code = 379) hemolyzed [id number] 10:10:00 Test Item Value Reference Range Interpretation Comments GLUCOSE RANDOM (BEAKER) (test code 204 mg/dL 70-105 H = 652) [id number] 10:07:00 Test Item Value Reference Range Interpretation Comments FIBRINOGEN LEVEL (BEAKER) (test 251 mg/dl 225-434 code = 658) ANTITHROMBIN [id number] 10:04:00 Test Item Value Reference Range Interpretation Comments ANTITHROMBIN III ACTIVITY (BEAKER) 46.0 % 80.0-120.0 L (test code = 711) [id number] 09:58:00 Test Item Value Reference Range Interpretation Comments PARTIAL THROMBOPLASTIN TIME 59.8 seconds 22.5-36.0 H (BEAKER) (test code = 760) PROTHROMBIN [id number] 09:57:00 Test Item Value Reference Range Interpretation Comments PROTIME (BEAKER) (test code = 19.3 seconds 11.7-14.7 H 759) INR (BEAKER) (test code = 370) 1.6 <=5.9 RECOMMENDED COUMADIN/WARFARIN INR THERAPY RANGESSTANDARD DOSE: 2.0 - 3.0 Includes: PROPHYLAXIS forvenous thrombosis, systemic embolization; TREATMENT for venous thrombosis and/or pulmonary embolus.HIGH RISK: Target INR is 2.5-3.5 for patients with mechanical heart valves.PLATELET [id number] 09:49:00 Test Item Value Reference Range Interpretation Comments PLATELET COUNT (BEAKER) (test code 94 K/CU MM 150-450 L = 756) BLOOD GAS, [id number] 09:47:00 Test Item Value Reference Range Interpretation [...] (test code = 1819) 40.0 % CALCIUM, [id number] 09:46:00 Test Item Value Reference Range Interpretation Comments CALCIUM IONIZED (BEAKER) (test 1.12 mmol/L 1.12-1.27 code = 698) PH, BLOOD (BEAKER) (test code = 7.47 1810) HEPARIN ASSAY - [id number] 08:21:00 Test Item Value Reference Range Interpretation Comments UNFRACTIONATED HEPARIN-ANTI 10A < u/ml 0.30-0.70 L (BEAKER) (test code = 1606) Recommendations for Monitoring Unfractionated Heparin Therapeutic Range: 0.3- 0.7 u/mL with continuous IV infusionLACTATE DEHYDROGENASE (LDH)2018-01-12 07:40:00 Test Item Value Reference Range Interpretation Comments LACTATE DEHYDROGENASE (BEAKER) (test 3247 U/L 125-220 H code = 635) [id number] 07:38:00 Test Item Value Reference Range Interpretation Comments MAGNESIUM (BEAKER) (test code = 2.3 mg/dL 1.6-2.6 627) [id number] 07:38:00 Test Item Value Reference Range Interpretation Comments GLUCOSE RANDOM (BEAKER) (test code 217 mg/dL 70-105 H = 652) LACTIC ACID, ARTERIAL, WHOLE [id number] 07:27:00 Test Item Value Reference Range Interpretation Comments LACTATE BLOOD ARTERIAL (2) 1.4 mmol/L 0.5-2.2 (BEAKER) (test code = 2874) Effective 01/04/2016: Units/Reference Range ChangeNew: 0.5-2.2 mmol/L Previous: 5-20 mg/dLSpecimen slightly ictericGLUCOSE-STAT [id number] 06:55:00 Test Item Value Reference Range Interpretation Comments GLUCOSE RANDOM (BEAKER) (test code 212 mg/dL 70-110 H = 652) BLOOD GAS, [id number] 06:55:00 Test Item Value Reference Range Interpretation [...] (test code = 1819) 40.0 % POTASSIUM-STAT [id number] 06:52:00 Test Item Value Reference Range Interpretation Comments POTASSIUM (BEAKER) (test code = 4.8 meq/L 3.6-5.5 379) BLOOD GAS, [id number] 06:43:00 Test Item Value Reference Range Interpretation [...] 100.0 % RAD, CHEST, 1 VIEW, NON [id number] 06:14:00Reason for exam:- >impella/ECMO/intubationShould this be performed [...] Taylor Verified Date/Time: 01/12/2018 06:14:29 Reading Location: [address] Transitional Reading Room LACTATE DEHYDROGENASE (LDH)2018-01-12 05:03:00 Test Item Value Reference Range Interpretation Comments LACTATE DEHYDROGENASE (BEAKER) (test 3014 U/L 125-220 H code = 635) HEPATIC FUNCTION [id number] 05:03:00 Test Item Value Reference Range Interpretation [...] 1544 U/L 6-55 H 347) Specimen slightly [id number] 05:01:00 Test Item Value Reference Range Interpretation Comments PHOSPHORUS (BEAKER) (test code = 5.0 mg/dL 2.3-4.7 H 604) [id number] 05:01:00 Test Item Value Reference Range Interpretation Comments MAGNESIUM (BEAKER) (test code = 2.1 mg/dL 1.6-2.6 627) [id number] 05:01:00 Test Item Value Reference Range Interpretation Comments CALCIUM (BEAKER) (test code = 697) 8.5 mg/dL 8.4-10.2 BASIC METABOLIC [id number] 05:01:00 Test Item Value Reference Range Interpretation [...] TS. Specimen slightly ictericLACTIC ACID, ARTERIAL, WHOLE [id number] 04:42:00 Test Item Value Reference Range Interpretation Comments LACTATE BLOOD ARTERIAL (2) 1.5 mmol/L 0.5-2.2 (BEAKER) (test code = 2874) Effective 01/04/2016: Units/Reference Range ChangeNew: 0.5-2.2 mmol/L Previous: 5-20 mg/dLSpecimen slightly [id number] 04:38:00 Test Item Value Reference Range Interpretation Comments FIBRINOGEN LEVEL (BEAKER) (test 252 mg/dl 225-434 code = 658) [id number] 04:38:00 Test Item Value Reference Range Interpretation Comments PARTIAL THROMBOPLASTIN TIME 54.6 seconds 22.5-36.0 H (BEAKER) (test code = 760) CBC W/PLT COUNT & AUTO [id number] 04:37:00 Test Item Value Reference Range Interpretation [...] PERCENT (BEAKER) (test code = 2801) PROTHROMBIN [id number] 04:37:00 Test Item Value Reference Range Interpretation Comments PROTIME (BEAKER) (test code = 19.9 seconds 11.7-14.7 H 759) INR (BEAKER) (test code = 370) 1.7 <=5.9 RECOMMENDED COUMADIN/WARFARIN INR THERAPY RANGESSTANDARD DOSE: 2.0 - 3.0 Includes: PROPHYLAXIS forvenous thrombosis, systemic embolization; TREATMENT for venous thrombosis and/or pulmonary embolus.HIGH RISK: Target INR is 2.5-3.5 for patients with mechanical heart valves.CALCIUM, [id number] 04:31:00 Test Item Value Reference Range Interpretation Comments CALCIUM IONIZED (BEAKER) (test 1.12 mmol/L 1.12-1.27 code = 698) PH, BLOOD (BEAKER) (test code = 7.42 1810) BLOOD GAS, [id number] 04:30:00 Test Item Value Reference Range Interpretation [...] (test code = 1819) 40.0 % PLATELET [id number] 04:23:00 Test Item Value Reference Range Interpretation Comments PLATELET COUNT (BEAKER) (test 110 K/CU MM 150-450 L code = 756) OXYGEN SATURATION, [id number] 04:14:00 Test Item Value Reference Range Interpretation Comments O2 SATURATION (MEASURED) (BEAKER) 79.7 % (test code = 1455) [id number] 02:54:00 Test Item Value Reference Range Interpretation Comments PARTIAL THROMBOPLASTIN TIME 134.3 seconds 22.5-36.0 H (BEAKER) (test code = 760) [id number] 02:25:00 Test Item Value Reference Range Interpretation Comments PARTIAL THROMBOPLASTIN TIME 94.0 seconds 22.5-36.0 H (BEAKER) (test code = 760) BLOOD GAS, [id number] 01:56:00 Test Item Value Reference Range Interpretation [...] (test code = 1819) 40.0 % GLUCOSE-STAT [id number] 01:53:00 Test Item Value Reference Range Interpretation Comments GLUCOSE RANDOM (BEAKER) (test code 201 mg/dL 70-110 H = 652) POTASSIUM-STAT [id number] 01:52:00 Test Item Value Reference Range Interpretation Comments POTASSIUM (BEAKER) (test code = 4.9 meq/L 3.6-5.5 379) LACTIC ACID, ARTERIAL, WHOLE [id number] 01:18:00 Test Item Value Reference Range Interpretation Comments LACTATE BLOOD ARTERIAL (2) 2.0 mmol/L 0.5-2.2 (BEAKER) (test code = 2874) Effective 01/04/2016: Units/Reference Range ChangeNew: 0.5-2.2 mmol/L Previous: 5-20 mg/dLSpecimen slightly [id number] 01:18:00 Test Item Value Reference Range Interpretation Comments POTASSIUM (BEAKER) (test code = 5.1 meq/L 3.5-5.1 379) [id number] 01:18:00 Test Item Value Reference Range Interpretation Comments GLUCOSE RANDOM (BEAKER) (test code 194 mg/dL 70-105 H = 652) PROTHROMBIN [id number] 01:15:00 Test Item Value Reference Range Interpretation Comments PROTIME (BEAKER) (test code = 21.2 seconds 11.7-14.7 H 759) INR (BEAKER) (test code = 370) 1.8 <=5.9 RECOMMENDED COUMADIN/WARFARIN INR THERAPY RANGESSTANDARD DOSE: 2.0 - 3.0 Includes: PROPHYLAXIS forvenous thrombosis, systemic embolization; TREATMENT for venous thrombosis and/or pulmonary embolus.HIGH RISK: Target INR is 2.5-3.5 for patients with mechanical heart valves.[id number] 01:15:00 Test Item Value Reference Range Interpretation Comments FIBRINOGEN LEVEL (BEAKER) (test 233 mg/dl 225-434 code = 658) PLATELET [id number] 01:01:00 Test Item Value Reference Range Interpretation Comments PLATELET COUNT (BEAKER) (test code 84 K/CU MM 150-450 L = 756) BLOOD GAS, [id number] 01:00:00 Test Item Value Reference Range Interpretation [...] (test code = 1819) 40.0 % CALCIUM, [id number] 01:00:00 Test Item Value Reference Range Interpretation [...] 0.0-5.0 (BEAKER) (test code = 1414) GLUCOSE-STAT [id number] 23:53:00 Test Item Value Reference Range Interpretation Comments GLUCOSE RANDOM (BEAKER) (test code 182 mg/dL 70-110 H = 652) BLOOD GAS, [id number] 23:52:00 Test Item Value Reference Range Interpretation Comments PH ARTERIAL (BEAKER) (test code = 7.52 7.35-7.45 H 383) PCO2 ARTERIAL (BEAKER) (test code 31 mm Hg 35-45 L = 384) PO2 ARTERIAL (BEAKER) (test code = 280 mm Hg 80-90 H 385) O2 SATURATION ARTERIAL (BEAKER) 99.7 % 96.0-97.0 H (test code = 386) HCO3 ARTERIAL (BEAKER) (test code 25 mmol/L -29 = 388) BASE EXCESS ARTERIAL (BEAKER) 2.3 mmol/L -2.0-3.0 (test code = 387) PATIENT TEMPERATURE (BEAKER) (test 36.7 code = 1818) FIO2 (BEAKER) (test code = 1819) 40 [id number] 23:05:00 Test Item Value Reference Range Interpretation Comments PARTIAL THROMBOPLASTIN TIME > seconds 22.5-36.0 HH (BEAKER) (test code = 760) BLOOD GAS, [id number] 23:01:00 Test Item Value Reference Range Interpretation [...] (BEAKER) (test code = 1819) 100.0 % [id number] 22:46:00 Test Item Value Reference Range Interpretation Comments FIBRINOGEN LEVEL (BEAKER) (test 223 mg/dl 225-434 L code = 658) PROTHROMBIN [id number] 22:45:00 Test Item Value Reference Range Interpretation Comments PROTIME (BEAKER) (test code = 23.0 seconds 11.7-14.7 H 759) INR (BEAKER) (test code = 370) 2.0 <=5.9 RECOMMENDED COUMADIN/WARFARIN INR THERAPY RANGESSTANDARD DOSE: 2.0 - 3.0 Includes: PROPHYLAXIS forvenous thrombosis, systemic embolization; TREATMENT for venous thrombosis and/or pulmonary embolus.HIGH RISK: Target INR is 2.5-3.5 for patients with mechanical heart valves.BLOOD GAS, [id number] 22:22:00 Test Item Value Reference Range Interpretation [...] (test code = 1819) 40.0 % CALCIUM, [id number] 22:21:00 Test Item Value Reference Range Interpretation Comments CALCIUM IONIZED (BEAKER) (test 1.05 mmol/L 1.12-1.27 L code = 698) PH, BLOOD (BEAKER) (test code = 7.67 1810) PLATELET [id number] 22:21:00 Test Item Value Reference Range Interpretation Comments PLATELET COUNT (BEAKER) (test code 71 K/CU MM 150-450 L = 756) GLUCOSE-STAT [id number] 22:20:00 Test Item Value Reference Range Interpretation Comments GLUCOSE RANDOM (BEAKER) (test code 189 mg/dL 70-110 H = 652) POTASSIUM-STAT [id number] 22:19:00 Test Item Value Reference Range Interpretation [...] 2133 U/L 125-220 H code = 635) [id number] 20:55:00 Test Item Value Reference Range Interpretation Comments POTASSIUM (BEAKER) (test code = 5.4 meq/L 3.5-5.1 H 379) [id number] 20:55:00 Test Item Value Reference Range Interpretation Comments MAGNESIUM (BEAKER) (test code = 1.6 mg/dL 1.6-2.6 627) [id number] 20:55:00 Test Item Value Reference Range Interpretation Comments PHOSPHORUS (BEAKER) (test code = 2.9 mg/dL 2.3-4.7 604) GLUCOSE-STAT [id number] 20:31:00 Test Item Value Reference Range Interpretation Comments GLUCOSE RANDOM (BEAKER) (test code 166 mg/dL 70-110 H = 652) POTASSIUM-STAT [id number] 20:30:00 Test Item Value Reference Range Interpretation Comments POTASSIUM (BEAKER) (test code = 5.2 meq/L 3.6-5.5 379) BLOOD GAS, [id number] 20:30:00 Test Item Value Reference Range Interpretation [...] code = 1819) 40.0 % OXYGEN SATURATION, [id number] 18:46:00 Test Item Value Reference Range Interpretation Comments O2 SATURATION (MEASURED) (BEAKER) 81.5 % (test code = 1455) RAD, CHEST, 1 VIEW, NON [id number] 18:27:00Reason for exam:->impella/ECMO placementShould this be performed [...] MDReport Verified Date/Time: 01/11/2018 18:27:33 Reading Location: [address] Ortho Consult Reading Room [id number] 18:11:00 Test Item Value Reference Range Interpretation Comments PARTIAL THROMBOPLASTIN TIME > seconds 22.5-36.0 HH (BEAKER) (test code = 760) LACTATE DEHYDROGENASE (LDH)2018-01-11 18:09:00 Test Item Value Reference Range Interpretation Comments LACTATE DEHYDROGENASE 1590 U/L 125-220 H Specim en slightly (BEAKER) (test code = hemoly zed 635) BASIC METABOLIC [id number] 18:08:00 Test Item Value Reference Range Interpretation [...] S NOT APPLICABLE FOR DIALYSIS PATIEN TS. [id number] 17:54:00 Test Item Value Reference Range Interpretation Comments MAGNESIUM (BEAKER) 1.8 mg/dL 1.6-2.6 Specimen slightly (test code = 627) hemolyzed [id number] 17:54:00 Test Item Value Reference Range Interpretation Comments PHOSPHORUS (BEAKER) 4.6 mg/dL 2.3-4.7 Specimen slightly (test code = 604) hemolyzed LACTIC ACID, ARTERIAL, WHOLE [id number] 17:53:00 Test Item Value Reference Range Interpretation Comments LACTATE BLOOD 10.8 mmol/L 0.5-2.2 H Specimen sligh tly ARTERIAL (2) (BEAKER) hemoly zed (test code = 2874) Effective 01/04/2016: Units/Reference Range ChangeNew: 0.5-2.2 mmol/L Previous: 5-20 mg/kAI-[id number] 17:46:00 Test Item Value Reference Range Interpretation [...] exclusion of thrombosis is within 95-100% range. [id number] 17:46:00 Test Item Value Reference Range Interpretation Comments FIBRINOGEN LEVEL (BEAKER) (test 201 mg/dl 225-434 L code = 658) PROTHROMBIN [id number] 17:45:00 Test Item Value Reference Range Interpretation Comments PROTIME (BEAKER) (test code = 24.4 seconds 11.7-14.7 H 759) INR (BEAKER) (test code = 370) 2.2 <=5.9 RECOMMENDED COUMADIN/WARFARIN INR THERAPY RANGESSTANDARD DOSE: 2.0 - 3.0 Includes: PROPHYLAXIS forvenous thrombosis, systemic embolization; TREATMENT for venous thrombosis and/or pulmonary embolus.HIGH RISK: Target INR is 2.5-3.5 for patients with mechanical heart valves.BLOOD GAS, [id number] 17:44:00 Test Item Value Reference Range Interpretation [...] code = 1819) 40.0 % SODIUM NA-STAT [id number] 17:44:00 Test Item Value Reference Range Interpretation Comments SODIUM (BEAKER) (test code = 381) 134 meq/L 135-148 L POTASSIUM-STAT [id number] 17:44:00 Test Item Value Reference Range Interpretation Comments POTASSIUM (BEAKER) (test code = 6.2 meq/L 3.6-5.5 HH 379) GLUCOSE-STAT [id number] 17:44:00 Test Item Value Reference Range Interpretation Comments GLUCOSE RANDOM (BEAKER) (test code 147 mg/dL 70-110 H = 652) HGB/HCT (H&H) - STAT [id number] 17:44:00 Test Item Value Reference Range Interpretation Comments HEMOGLOBIN (BEAKER) (test code = 9.9 g/dL 13.0-16.8 L 410) HEMATOCRIT (BEAKER) (test code = 29.0 % 40.0-50.0 L 411) CALCIUM, [id number] 17:41:00 Test Item Value Reference Range Interpretation Comments CALCIUM IONIZED (BEAKER) (test 1.03 mmol/L 1.12-1.27 L code = 698) PH, BLOOD (BEAKER) (test code = 7.52 1810) OXYGEN SATURATION, [id number] 17:39:00 Test Item Value Reference Range Interpretation Comments O2 SATURATION (MEASURED) (BEAKER) 84.5 % (test code = 1455) CBC W/PLT COUNT & AUTO [id number] 17:37:00 Test Item Value Reference Range Interpretation [...] 0-1 PERCENT (BEAKER) (test code = 2801) [id number] 16:35:00 Test Item Value Reference Range Interpretation Comments ACTIVATED CLOTTING TIME 230 sec TEST ED [facility] [place] [address] [facility] (test code = [place] [address]) [address] [id number] 16:35:00 Test Item Value Reference Range Interpretation Comments ACTIVATED CLOTTING TIME 191 sec TEST ED AT [place] [address] ([facility]) (test code = [place] [address]) [address] BLOOD GAS, [id number] 16:20:00 Test Item Value Reference Range Interpretation [...] (test code = 1819) 100 BLOOD GAS, [id number] 16:19:00 Test Item Value Reference Range Interpretation [...] drawn from ECMO circuitLACTIC ACID, ARTERIAL, WHOLE [id number] 14:07:00 Test Item Value Reference Range Interpretation Comments LACTATE BLOOD 13.1 mmol/L 0.5-2.2 H Specimen sligh tly ARTERIAL (2) (BEAKER) hemoly zed (test code = 2874) Effective 01/04/2016: Units/Reference Range ChangeNew: 0.5-2.2 mmol/L Previous: 5-20 mg/dLPROTHROMBIN [id number] 14:01:00 Test Item Value Reference Range Interpretation Comments PROTIME (BEAKER) (test code = 20.9 seconds 11.7-14.7 H 759) INR (BEAKER) (test code = 370) 1.8 <=5.9 RECOMMENDED COUMADIN/WARFARIN INR THERAPY RANGESSTANDARD DOSE: 2.0 - 3.0 Includes: PROPHYLAXIS forvenous thrombosis, systemic embolization; TREATMENT for venous thrombosis and/or pulmonary embolus.HIGH RISK: Target INR is 2.5-3.5 for patients with mechanical heart valves.[id number] 14:01:00 Test Item Value Reference Range Interpretation Comments FIBRINOGEN LEVEL (BEAKER) (test 227 mg/dl 225-434 code = 658) PLATELET [id number] 13:54:00 Test Item Value Reference Range Interpretation Comments PLATELET COUNT (BEAKER) (test 115 K/CU MM 150-450 L code = 756) BLOOD GAS, [id number] 13:47:00 Test Item Value Reference Range Interpretation [...] (test code = 1819) 40.0 % GLUCOSE-STAT [id number] 13:47:00 Test Item Value Reference Range Interpretation Comments GLUCOSE RANDOM (BEAKER) (test code 134 mg/dL 70-110 H = 652) [id number] 12:33:00 Test Item Value Reference Range Interpretation Comments POTASSIUM (BEAKER) (test code = 5.6 meq/L 3.5-5.1 H 379) PRN - repeat glucose levels every 1 hour or as specified by insulin titration orders until glucose level is less than 450 mg/[id number] 12:33:00 Test Item Value Reference Range Interpretation Comments GLUCOSE RANDOM (BEAKER) (test code = 43 mg/dL 70-105 L 652) PRN - repeat glucose levels every 1 hour or as specified by insulin titration orders until glucose level is less than 450 mg/dLBASIC METABOLIC [id number] 11:05:00 Test Item Value Reference Range Interpretation [...] until glucose level is less than 450 mg/[id number] 11:05:00 Test Item Value Reference Range Interpretation Comments GLUCOSE RANDOM (BEAKER) (test code = 34 mg/dL 70-105 LL 652) [id number] 10:44:00 Test Item Value Reference Range Interpretation Comments POTASSIUM (BEAKER) (test code = 5.9 meq/L 3.5-5.1 H 379) HEPATIC FUNCTION [id number] 10:44:00 Test Item Value Reference Range Interpretation [...] Previous: 5-20 mg/dLCBC W/PLT COUNT & AUTO [id number] 10:23:00 Test Item Value Reference Range Interpretation [...] (BEAKER) (test code = 2801) BLOOD GAS, [id number] 10:20:00 Test Item Value Reference Range Interpretation [...] (BEAKER) (test code = 1819) 40.0 % [id number] 09:01:00 Test Item Value Reference Range Interpretation Comments POTASSIUM (BEAKER) (test code = 5.9 meq/L 3.5-5.1 H 379) PRN - repeat glucose levels every 1 hour or as specified by insulin titration orders until glucose level is less than 450 mg/[id number] 09:01:00 Test Item Value Reference Range Interpretation Comments MAGNESIUM (BEAKER) (test code = 1.7 mg/dL 1.6-2.6 627) PRN - repeat glucose levels every 1 hour or as specified by insulin titration orders until glucose level is less than 450 mg/[id number] 09:01:00 Test Item Value Reference Range Interpretation Comments PHOSPHORUS (BEAKER) (test code = 4.7 mg/dL 2.3-4.7 604) PRN - repeat glucose levels every 1 hour or as specified by insulin titration orders until glucose level is less than 450 mg/[id number] 09:01:00 Test Item Value Reference Range Interpretation Comments GLUCOSE RANDOM (BEAKER) (test code = 50 mg/dL 70-105 L 652) PRN - repeat glucose levels every 1 hour or as specified by insulin titration orders until glucose level is less than 450 mg/dLCALCIUM, [id number] 08:47:00 Test Item Value Reference Range Interpretation Comments CALCIUM IONIZED (BEAKER) (test 1.24 mmol/L 1.12-1.27 code = 698) PH, BLOOD (BEAKER) (test code = 7.31 1810) [id number] 08:45:00 Test Item Value Reference Range Interpretation Comments PARTIAL THROMBOPLASTIN TIME 53.7 seconds 22.5-36.0 H (BEAKER) (test code = 760) BLOOD GAS, [id number] 08:41:00 Test Item Value Reference Range Interpretation [...] (test code = 1819) 40.0 % PH, [id number] 08:41:00 Test Item Value Reference Range Interpretation Comments PH ARTERIAL (BEAKER) (test code = 383) 7.31 7.35-7.45 L RAD, CHEST, 1 VIEW, NON [id number] 07:31:00Reason for exam:->s/p cardiac surgeryShould this be [...] Xie MDReport VerifiedDate/Time: 01/11/2018 07:31:38 Reading Location: [facility] C013X Ortho Consult Reading Room BLOOD GAS, [...] code = 1819) 40.0 % BASIC METABOLIC [id number] 06:12:00 Test Item Value Reference Range Interpretation [...] NOT APPLICABLE FOR DIALYSIS PATIEN TS. POCT-GLUCOSE [id number] 05:58:00 Test Item Value Reference Range Interpretation Comments POC-GLUCOSE METER 121 mg/dL 70-[address] [facility] 67[address] (BEAKER) (test code = [facility] 1538) [address] POCT-GLUCOSE [id number] 05:58:00 Test Item Value Reference Range Interpretation Comments POC-GLUCOSE METER 66 mg/dL 70-110 L Will Repea t Test/TESTED (BEAKER) (test code = AT [facility] 67[address] [facility] 1538) [facility] [address] [id number] 05:51:00 Test Item Value Reference Range Interpretation Comments PHOSPHORUS (BEAKER) (test code = 3.5 mg/dL 2.3-4.7 604) [id number] 05:51:00 Test Item Value Reference Range Interpretation Comments MAGNESIUM (BEAKER) (test code = 1.9 mg/dL 1.6-2.6 627) BLOOD GAS, [id number] 05:47:00 Test Item Value Reference Range Interpretation [...] L (test code = 387) PATIENT TEMPERATURE (AKER) 36.6 C (test code = 1818) FIO2 (BEAKER) (test code = 1819) 40.0 % POCT-GLUCOSE [id number] 05:27:00 Test Item Value Reference Range Interpretation Comments POC-GLUCOSE METER 112 mg/dL 70-110 H TESTED AT [place] [address] ([facility]) (test code = [facility] 1538) [address] POCT-GLUCOSE [id number] 05:27:00 Test Item Value Reference Range Interpretation Comments POC-GLUCOSE METER 106 mg/dL 70-110 TESTED AT [place] [address] ([facility]) (test code = [facility] 1538) [address] POCT-GLUCOSE [id number] 05:26:00 Test Item Value Reference Range Interpretation Comments POC-GLUCOSE METER 66 mg/dL 70-110 L TESTED AT [place] [address] ([facility]) (test code = [facility] [address] 1538) LACTIC ACID, ARTERIAL, WHOLE [id number] 04:59:00 Test Item Value Reference Range Interpretation Comments LACTATE BLOOD 12.2 mmol/L 0.5-2.2 H Specimen sligh tly ARTERIAL (2) (AKER) hemoly zed (test code = 2874) Effective 01/04/2016: Units/Reference Range ChangeNew: 0.5-2.2 mmol/L Previous: 5-20 mg/dLCALCIUM, [id number] 04:57:00 Test Item Value Reference Range Interpretation Comments CALCIUM IONIZED (BEAKER) (test 1.33 mmol/L 1.12-1.27 H code = 698) PH, BLOOD (BEAKER) (test code = 7.30 1810) BLOOD GAS, [id number] 04:57:00 Test Item Value Reference Range Interpretation [...] code = 1819) 45.0 % OXYGEN SATURATION, [id number] 04:56:00 Test Item Value Reference Range Interpretation Comments O2 SATURATION (MEASURED) (BEAKER) 83.2 % (test code = 1455) CBC W/PLT COUNT & AUTO [id number] 04:56:00 Test Item Value Reference Range Interpretation [...] PERCENT (BEAKER) (test code = 2801) CALCIUM, [id number] 03:38:00 Test Item Value Reference Range Interpretation Comments CALCIUM IONIZED (BEAKER) (test 1.32 mmol/L 1.12-1.27 H code = 698) PH, BLOOD (BEAKER) (test code = 7.29 1810) BLOOD GAS, [id number] 03:36:00 Test Item Value Reference Range Interpretation [...] 1819) 50.0 % HGB/HCT (H&H) - STAT [id number] 03:36:00 Test Item Value Reference Range Interpretation Comments HEMOGLOBIN (BEAKER) (test code = 12.5 g/dL 13.0-16.8 L 410) HEMATOCRIT (BEAKER) (test code = 37.0 % 40.0-50.0 L 411) OXYGEN SATURATION, [id number] 03:35:00 Test Item Value Reference Range Interpretation Comments O2 SATURATION (MEASURED) (BEAKER) 80.3 % (test code = 1455) GLUCOSE-STAT [id number] 03:34:00 Test Item Value Reference Range Interpretation Comments GLUCOSE RANDOM (BEAKER) (test code = 91 mg/dL 70-110 652) SODIUM NA-STAT [id number] 03:34:00 Test Item Value Reference Range Interpretation Comments SODIUM (BEAKER) (test code = 381) 137 meq/L 135-148 POTASSIUM-STAT [id number] 03:34:00 Test Item Value Reference Range Interpretation Comments POTASSIUM (BEAKER) (test code = 4.6 meq/L 3.6-5.5 379) BLOOD GAS, [id number] 03:01:00 Test Item Value Reference Range Interpretation [...] 1819) 50.0 % HGB/HCT (H&H) - STAT [id number] 03:01:00 Test Item Value Reference Range Interpretation Comments HEMOGLOBIN (BEAKER) (test code = 12.0 g/dL 13.0-16.8 L 410) HEMATOCRIT (BEAKER) (test code = 35.0 % 40.0-50.0 L 411) POTASSIUM-STAT [id number] 03:00:00 Test Item Value Reference Range Interpretation Comments POTASSIUM (BEAKER) (test code = 5.0 meq/L 3.6-5.5 379) GLUCOSE-STAT [id number] 03:00:00 Test Item Value Reference Range Interpretation Comments GLUCOSE RANDOM (BEAKER) (test code 102 mg/dL 70-110 = 652) SODIUM NA-STAT [id number] 03:00:00 Test Item Value Reference Range Interpretation Comments SODIUM (BEAKER) (test code = 381) 140 meq/L 135-148 LACTIC ACID, ARTERIAL, WHOLE [id number] 01:53:00 Test Item Value Reference Range Interpretation Comments LACTATE BLOOD 9.4 mmol/L 0.5-2.2 H Specimen sligh tly ARTERIAL (2) (BEAKER) hemoly zed (test code = 2874) Effective 01/04/2016: Units/Reference Range ChangeNew: 0.5-2.2 mmol/L Previous: 5-20 mg/dLGLUCOSE-STAT [id number] 01:27:00 Test Item Value Reference Range Interpretation Comments GLUCOSE RANDOM (BEAKER) (test code = 99 mg/dL 70-110 652) BLOOD GAS, [id number] 01:27:00 Test Item Value Reference Range Interpretation [...] 1819) 100.0 % HGB/HCT (H&H) - STAT [id number] 01:27:00 Test Item Value Reference Range Interpretation Comments HEMOGLOBIN (BEAKER) (test code = 12.7 g/dL 13.0-16.8 L 410) HEMATOCRIT (BEAKER) (test code = 37.0 % 40.0-50.0 L 411) SODIUM NA-STAT [id number] 01:26:00 Test Item Value Reference Range Interpretation Comments SODIUM (BEAKER) (test code = 381) 141 meq/L 135-148 POTASSIUM-STAT [id number] 01:26:00 Test Item Value Reference Range Interpretation Comments POTASSIUM (BEAKER) (test code = 3.6 meq/L 3.6-5.5 379) [id number] 00:38:00 Test Item Value Reference Range Interpretation Comments PARTIAL THROMBOPLASTIN TIME 47.4 seconds 22.5-36.0 H (BEAKER) (test code = 760) [id number] 00:35:00 Test Item Value Reference Range Interpretation Comments POTASSIUM (BEAKER) 3.5 meq/L 3.5-5.1 Specimen slightly (test code = 379) hemolyzed CALCIUM, [id number] 00:25:00 Test Item Value Reference Range Interpretation [...] = 1414) RAD, CHEST, 1 VIEW, NON [id number] 22:36:00Reason for exam:->s/p BronchoscopyFINAL REPORT CLINICAL INDICATION: Post bronchoscopy Comparison: Same date [id number] hours There is improved aeration of the right upper lobe. No pneumothorax is present. Hazy opacity in the right upper lobe and in the retrocardiac lower lungs may reflect atelectasis but pneumonitis should be excluded clinically. The cardiomediastinal contours are stable. Support lines are stable. Signed: Kellen Parra MDReport Verified Date/Time: 01/10/2018 22:36:29 Reading Location: [address] Reading Room C METABOLIC [id number] 22:01:00 Test Item Value Reference Range Interpretation [...] S NOT APPLICABLE FOR DIALYSIS PATIEN TS. [id number] 22:00:00 Test Item Value Reference Range Interpretation Comments MAGNESIUM (BEAKER) 2.4 mg/dL 1.6-2.6 Specimen slightly (test code = 627) hemolyzed [id number] 22:00:00 Test Item Value Reference Range Interpretation Comments PHOSPHORUS (BEAKER) 3.2 mg/dL 2.3-4.7 Specimen slightly (test code = 604) hemolyzed LACTIC ACID, ARTERIAL, WHOLE [id number] 21:57:00 Test Item Value Reference Range Interpretation Comments LACTATE BLOOD 10.2 mmol/L 0.5-2.2 H Specimen sligh tly ARTERIAL (2) (BEAKER) hemoly zed (test code = 2874) Effective 01/04/2016: Units/Reference Range ChangeNew: 0.5-2.2 mmol/L Previous: 5-20 mg/dLCBC W/PLT COUNT & AUTO [id number] 21:51:00 Test Item Value Reference Range Interpretation [...] 0-1 PERCENT (BEAKER) (test code = 2801) [id number] 21:49:00 Test Item Value Reference Range Interpretation Comments PARTIAL THROMBOPLASTIN TIME 41.2 seconds 22.5-36.0 H (BEAKER) (test code = 760) PROTHROMBIN [id number] 21:48:00 Test Item Value Reference Range Interpretation Comments PROTIME (BEAKER) (test code = 19.8 seconds 11.7-14.7 H 759) INR (BEAKER) (test code = 370) 1.7 <=5.9 RECOMMENDED COUMADIN/WARFARIN INR THERAPY RANGESSTANDARD DOSE: 2.0 - 3.0 Includes: PROPHYLAXIS forvenous thrombosis, systemic embolization; TREATMENT for venous thrombosis and/or pulmonary embolus.HIGH RISK: Target INR is 2.5-3.5 for patients with mechanical heart valves.[id number] 21:48:00 Test Item Value Reference Range Interpretation Comments FIBRINOGEN LEVEL (BEAKER) (test 221 mg/dl 225-434 L code = 658) CALCIUM, [id number] 21:33:00 Test Item Value Reference Range Interpretation Comments CALCIUM IONIZED (BEAKER) (test 1.54 mmol/L 1.12-1.27 H code = 698) PH, BLOOD (BEAKER) (test code = 7.33 1810) OXYGEN SATURATION, [id number] 21:33:00 Test Item Value Reference Range Interpretation Comments O2 SATURATION (MEASURED) (BEAKER) 67.1 % (test code = 1455) GLUCOSE-STAT [id number] 21:32:00 Test Item Value Reference Range Interpretation Comments GLUCOSE RANDOM (BEAKER) (test code = 98 mg/dL 70-110 652) SODIUM NA-STAT [id number] 21:32:00 Test Item Value Reference Range Interpretation Comments SODIUM (BEAKER) (test code = 381) 139 meq/L 135-148 POTASSIUM-STAT [id number] 21:32:00 Test Item Value Reference Range Interpretation Comments POTASSIUM (BEAKER) (test code = 3.6 meq/L 3.6-5.5 379) BLOOD GAS, [id number] 21:32:00 Test Item Value Reference Range Interpretation [...] 1819) 60.0 % HGB/HCT (H&H) - STAT [id number] 21:32:00 Test Item Value Reference Range Interpretation Comments HEMOGLOBIN (BEAKER) (test code = 8.2 g/dL 13.0-16.8 L 410) HEMATOCRIT (BEAKER) (test code = 24.0 % 40.0-50.0 L 411) RAD, CHEST, 1 VIEW, NON [id number] 21:32:00Reason for exam:->s/p cardiac surgeryShould this be [...] the level of the clavicles. Right IJ Highwood-Moni catheter terminatesin the distal right pulmonary artery. The soft tissues and osseous structures are intact. IMPRESSION: Postoperative changes with right upper lobe collapse, likely secondary to mucous plugging. Supporting lines and tubes as described above. Note position of the Highwood-Moni catheter. Signed: Moiz Musa MDReport Verified Date/Time: 01/10/2018 21:32:31 Reading Location: [facility] C013 Consult Reading Room THROMBOELASTOGRAPH (TEG)2018-01-10 21:01:00 Test [...] 55.0-65.0 L (test code = 1413) CALCIUM, [id number] 20:42:00 Test Item Value Reference Range Interpretation Comments CALCIUM IONIZED (BEAKER) (test 1.41 mmol/L 1.12-1.27 H code = 698) PH, BLOOD (BEAKER) (test code = 7.41 1810) SODIUM NA-STAT [id number] 20:41:00 Test Item Value Reference Range Interpretation Comments SODIUM (BEAKER) (test code = 381) 138 meq/L 135-148 POTASSIUM-STAT [id number] 20:41:00 Test Item Value Reference Range Interpretation Comments POTASSIUM (BEAKER) (test code = 3.7 meq/L 3.6-5.5 379) BLOOD GAS, [id number] 20:41:00 Test Item Value Reference Range Interpretation [...] (test code = 1819) 100.0 % GLUCOSE-STAT [id number] 20:41:00 Test Item Value Reference Range Interpretation Comments GLUCOSE RANDOM (BEAKER) (test code 120 mg/dL 70-110 H = 652) HGB/HCT (H&H) - STAT [id number] 20:41:00 Test Item Value Reference Range Interpretation Comments HEMOGLOBIN (BEAKER) (test code = 7.8 g/dL 13.0-16.8 L 410) HEMATOCRIT (BEAKER) (test code = 23.0 % 40.0-50.0 L 411) [id number] 20:23:00 Test Item Value Reference Range Interpretation Comments FIBRINOGEN LEVEL (BEAKER) (test 239 mg/dl 225-434 code = 658) [id number] 20:23:00 Test Item Value Reference Range Interpretation Comments PARTIAL THROMBOPLASTIN TIME 38.6 seconds 22.5-36.0 H (BEAKER) (test code = 760) PROTHROMBIN [id number] 20:22:00 Test Item Value Reference Range Interpretation Comments PROTIME (BEAKER) (test code = 21.6 seconds 11.7-14.7 H 759) INR (BEAKER) (test code = 370) 1.9 <=5.9 RECOMMENDED COUMADIN/WARFARIN INR THERAPY RANGESSTANDARD DOSE: 2.0 - 3.0 Includes: PROPHYLAXIS forvenous thrombosis, systemic embolization; TREATMENT for venous thrombosis and/or pulmonary embolus.HIGH RISK: Target INR is 2.5-3.5 for patients with mechanical heart valves.[id number] 20:16:00 Test Item Value Reference Range Interpretation Comments ACTIVATED CLOTTING TIME 114 sec TEST ED AT [place] [address] ([facility]) (test code = [place] [address]) [id number] 20:16:00 Test Item Value Reference Range Interpretation Comments ACTIVATED CLOTTING TIME 499 sec TEST ED AT [place] [address] ([facility]) (test code = [place] [address]) [address] [id number] 20:16:00 Test Item Value Reference Range Interpretation Comments ACTIVATED CLOTTING TIME 483 sec TEST ED AT [place] [address] ([facility]) (test code = [place] [address]) [address] [id number] 20:16:00 Test Item Value Reference Range Interpretation Comments ACTIVATED CLOTTING TIME 538 sec TEST ED AT [place] [address] ([facility]) (test code = [place] [address]) [address] [id number] 20:16:00 Test Item Value Reference Range Interpretation Comments ACTIVATED CLOTTING TIME 615 sec TEST ED AT [place] [address] ([facility]) (test code = [place] [address]) [address] [id number] 20:16:00 Test Item Value Reference Range Interpretation Comments ACTIVATED CLOTTING TIME 692 sec TEST ED AT [place] [address] ([facility]) (test code = [place] [address]) [address] [id number] 20:16:00 Test Item Value Reference Range Interpretation Comments ACTIVATED CLOTTING TIME 428 sec TEST ED AT [place] [address] ([facility]) (test code = [place] [address]) [address] [id number] 20:16:00 Test Item Value Reference Range Interpretation Comments ACTIVATED CLOTTING TIME 373 sec TEST ED AT [place] [address] ([facility]) (test code = [place] [address]) [address] [id number] 20:16:00 Test Item Value Reference Range Interpretation Comments ACTIVATED CLOTTING TIME 455 sec TEST ED AT [place] [address] ([facility]) (test code = [place] [address]) [address] [id number] 20:16:00 Test Item Value Reference Range Interpretation Comments ACTIVATED CLOTTING TIME 494 sec TEST ED AT [place] [address] ([facility]) (test code = [place] [facility] [address]) [address] [id number] 20:16:00 Test Item Value Reference Range Interpretation Comments ACTIVATED CLOTTING TIME 527 sec TEST ED AT [place] [address] ([facility]) (test code = [place] [facility]) [address] [id number] 20:16:00 Test Item Value Reference Range Interpretation Comments ACTIVATED CLOTTING TIME 610 sec TEST ED AT [place] [address] ([facility]) (test code = [place] [address]) [address] [id number] 20:16:00 Test Item Value Reference Range Interpretation Comments ACTIVATED CLOTTING TIME 576 sec TEST ED AT [place] [address] ([facility]) (test code = [place] [address]) [address] [id number] 20:16:00 Test Item Value Reference Range Interpretation Comments ACTIVATED CLOTTING TIME 384 sec TEST ED AT [place] [address] ([facility]) (test code = [place] [address]) [address] PLATELET [id number] 20:08:00 Test Item Value Reference Range Interpretation Comments PLATELET COUNT (AKER) (test code 47 K/CU MM 150-450 L [...] 0.0-5.0 (BEAKER) (test code = 1414) CALCIUM, [id number] 19:59:00 Test Item Value Reference Range Interpretation Comments CALCIUM IONIZED (BEAKER) (test 1.39 mmol/L 1.12-1.27 H code = 698) PH, BLOOD (BEAKER) (test code = 7.37 1810) BLOOD GAS, [id number] 19:58:00 Test Item Value Reference Range Interpretation [...] (test code = 1819) 100.0 % GLUCOSE-STAT [id number] 19:58:00 Test Item Value Reference Range Interpretation Comments GLUCOSE RANDOM (BEAKER) (test code 143 mg/dL 70-110 H = 652) HGB/HCT (H&H) - STAT [id number] 19:58:00 Test Item Value Reference Range Interpretation Comments HEMOGLOBIN (BEAKER) (test code = 8.7 g/dL 13.0-16.8 L 410) HEMATOCRIT (BEAKER) (test code = 26.0 % 40.0-50.0 L 411) SODIUM NA-STAT [id number] 19:57:00 Test Item Value Reference Range Interpretation Comments SODIUM (BEAKER) (test code = 381) 140 meq/L 135-148 POTASSIUM-STAT [id number] 19:57:00 Test Item Value Reference Range Interpretation Comments POTASSIUM (BEAKER) (test code = 3.9 meq/L 3.6-5.5 379) [id number] 19:29:00 Test Item Value Reference Range Interpretation Comments PARTIAL THROMBOPLASTIN TIME > seconds 22.5-36.0 HH (BEAKER) (test code = 760) [id number] 19:16:00 Test Item Value Reference Range Interpretation Comments FIBRINOGEN LEVEL (BEAKER) (test 271 mg/dl 225-434 code = 658) PROTHROMBIN [id number] 19:15:00 Test Item Value Reference Range Interpretation Comments PROTIME (BEAKER) (test code = 21.3 seconds 11.7-14.7 H 759) INR (BEAKER) (test code = 370) 1.8 <=5.9 RECOMMENDED COUMADIN/WARFARIN INR THERAPY RANGESSTANDARD DOSE: 2.0 - 3.0 Includes: PROPHYLAXIS forvenous thrombosis, systemic embolization; TREATMENT for venous thrombosis and/or pulmonary embolus.HIGH RISK: Target INR is 2.5-3.5 for patients with mechanical heart valves.PLATELET [id number] 19:06:00 Test Item Value Reference Range Interpretation Comments PLATELET COUNT (BEAKER) (test code 54 K/CU MM 150-450 L = 756) BLOOD GAS, [id number] 18:49:00 Test Item Value Reference Range Interpretation [...] 1819) 100.0 % HGB/HCT (H&H) - STAT [id number] 18:44:00 Test Item Value Reference Range Interpretation Comments HEMOGLOBIN (BEAKER) (test code = 10.1 g/dL 13.0-16.8 L 410) HEMATOCRIT (BEAKER) (test code = 30.0 % 40.0-50.0 L 411) SODIUM NA-STAT [id number] 18:43:00 Test Item Value Reference Range Interpretation Comments SODIUM (BEAKER) (test code = 381) 137 meq/L 135-148 POTASSIUM-STAT [id number] 18:43:00 Test Item Value Reference Range Interpretation Comments POTASSIUM (BEAKER) (test code = 5.0 meq/L 3.6-5.5 379) GLUCOSE-STAT [id number] 18:43:00 Test Item Value Reference Range Interpretation Comments GLUCOSE RANDOM (BEAKER) (test code 187 mg/dL 70-110 H = 652) SODIUM NA-STAT [id number] 18:22:00 Test Item Value Reference Range Interpretation Comments SODIUM (BEAKER) (test code = 381) 140 meq/L 135-148 POTASSIUM-STAT [id number] 18:22:00 Test Item Value Reference Range Interpretation Comments POTASSIUM (BEAKER) (test code = 4.7 meq/L 3.6-5.5 379) BLOOD GAS, [id number] 18:22:00 Test Item Value Reference Range Interpretation [...] (test code = 1819) 60.0 % GLUCOSE-STAT [id number] 18:22:00 Test Item Value Reference Range Interpretation Comments GLUCOSE RANDOM (BEAKER) (test code 209 mg/dL 70-110 H = 652) HGB/HCT (H&H) - STAT [id number] 18:22:00 Test Item Value Reference Range Interpretation Comments HEMOGLOBIN (BEAKER) (test code = 10.2 g/dL 13.0-16.8 L 410) HEMATOCRIT (BEAKER) (test code = 30.0 % 40.0-50.0 L 411) BLOOD GAS, [id number] 17:57:00 Test Item Value Reference Range Interpretation [...] (test code = 1819) 65.0 % GLUCOSE-STAT [id number] 17:57:00 Test Item Value Reference Range Interpretation Comments GLUCOSE RANDOM (BEAKER) (test code 198 mg/dL 70-110 H = 652) HGB/HCT (H&H) - STAT [id number] 17:57:00 Test Item Value Reference Range Interpretation Comments HEMOGLOBIN (BEAKER) (test code = 10.3 g/dL 13.0-16.8 L 410) HEMATOCRIT (BEAKER) (test code = 30.0 % 40.0-50.0 L 411) SODIUM NA-STAT [id number] 17:56:00 Test Item Value Reference Range Interpretation Comments SODIUM (BEAKER) (test code = 381) 138 meq/L 135-148 POTASSIUM-STAT [id number] 17:56:00 Test Item Value Reference Range Interpretation Comments POTASSIUM (BEAKER) (test code = 4.7 meq/L 3.6-5.5 379) BLOOD GAS, [id number] 17:28:00 Test Item Value Reference Range Interpretation [...] (test code = 1819) 65.0 % GLUCOSE-STAT [id number] 17:28:00 Test Item Value Reference Range Interpretation Comments GLUCOSE RANDOM (BEAKER) (test code 223 mg/dL 70-110 H = 652) HGB/HCT (H&H) - STAT [id number] 17:28:00 Test Item Value Reference Range Interpretation Comments HEMOGLOBIN (BEAKER) (test code = 10.1 g/dL 13.0-16.8 L 410) HEMATOCRIT (BEAKER) (test code = 30.0 % 40.0-50.0 L 411) SODIUM NA-STAT [id number] 17:27:00 Test Item Value Reference Range Interpretation Comments SODIUM (BEAKER) (test code = 381) 140 meq/L 135-148 POTASSIUM-STAT [id number] 17:27:00 Test Item Value Reference Range Interpretation [...] code = 1414) HGB/HCT (H&H) - STAT [id number] 17:01:00 Test Item Value Reference Range Interpretation Comments HEMOGLOBIN (BEAKER) (test code = 10.1 g/dL 13.0-16.8 L 410) HEMATOCRIT (BEAKER) (test code = 30.0 % 40.0-50.0 L 411) BLOOD GAS, [id number] 17:00:00 Test Item Value Reference Range Interpretation [...] (test code = 1819) 65.0 % GLUCOSE-STAT [id number] 17:00:00 Test Item Value Reference Range Interpretation Comments GLUCOSE RANDOM (BEAKER) (test code 243 mg/dL 70-110 H = 652) SODIUM NA-STAT [id number] 16:59:00 Test Item Value Reference Range Interpretation Comments SODIUM (BEAKER) (test code = 381) 139 meq/L 135-148 POTASSIUM-STAT [id number] 16:59:00 Test Item Value Reference Range Interpretation Comments POTASSIUM (BEAKER) (test code = 4.6 meq/L 3.6-5.5 379) [id number] 16:47:00 Test Item Value Reference Range Interpretation Comments PARTIAL THROMBOPLASTIN TIME > seconds 22.5-36.0 HH (BEAKER) (test code = 760) BLOOD GAS, [id number] 16:18:00 Test Item Value Reference Range Interpretation [...] (test code = 1819) 65.0 % GLUCOSE-STAT [id number] 16:18:00 Test Item Value Reference Range Interpretation Comments GLUCOSE RANDOM (BEAKER) (test code 279 mg/dL 70-110 H = 652) HGB/HCT (H&H) - STAT [id number] 16:18:00 Test Item Value Reference Range Interpretation Comments HEMOGLOBIN (BEAKER) (test code = 7.0 g/dL 13.0-16.8 L 410) HEMATOCRIT (BEAKER) (test code = 21.0 % 40.0-50.0 L 411) SODIUM NA-STAT [id number] 16:17:00 Test Item Value Reference Range Interpretation Comments SODIUM (BEAKER) (test code = 381) 137 meq/L 135-148 POTASSIUM-STAT [id number] 16:17:00 Test Item Value Reference Range Interpretation Comments POTASSIUM (BEAKER) (test code = 4.6 meq/L 3.6-5.5 379) [id number] 16:15:00 Test Item Value Reference Range Interpretation Comments FIBRINOGEN LEVEL (BEAKER) (test 255 mg/dl 225-434 code = 658) PROTHROMBIN [id number] 16:14:00 Test Item Value Reference Range Interpretation Comments PROTIME (BEAKER) (test code = 20.2 seconds 11.7-14.7 H 759) INR (BEAKER) (test code = 370) 1.7 <=5.9 RECOMMENDED COUMADIN/WARFARIN INR THERAPY RANGESSTANDARD DOSE: 2.0 - 3.0 Includes: PROPHYLAXIS forvenous thrombosis, systemic embolization; TREATMENT for venous thrombosis and/or pulmonary embolus.HIGH RISK: Target INR is 2.5-3.5 for patients with mechanical heart valves.PLATELET [id number] 16:02:00 Test Item Value Reference Range Interpretation Comments PLATELET COUNT (BEAKER) (test code 57 K/CU MM 150-450 L = 756) CALCIUM, [id number] 15:51:00 Test Item Value Reference Range Interpretation Comments CALCIUM IONIZED (BEAKER) (test 0.82 mmol/L 1.12-1.27 L code = 698) PH, BLOOD (BEAKER) (test code = 7.45 1810) BLOOD GAS, [id number] 15:51:00 Test Item Value Reference Range Interpretation [...] (test code = 1819) 100.0 % GLUCOSE-STAT [id number] 15:51:00 Test Item Value Reference Range Interpretation Comments GLUCOSE RANDOM (BEAKER) (test code 190 mg/dL 70-110 H = 652) HGB/HCT (H&H) - STAT [id number] 15:51:00 Test Item Value Reference Range Interpretation Comments HEMOGLOBIN (BEAKER) (test code = 7.6 g/dL 13.0-16.8 L 410) HEMATOCRIT (BEAKER) (test code = 22.0 % 40.0-50.0 L 411) POTASSIUM-STAT [id number] 15:51:00 Test Item Value Reference Range Interpretation Comments POTASSIUM (BEAKER) (test code = 5.6 meq/L 3.6-5.5 H 379) SODIUM NA-STAT [id number] 15:50:00 Test Item Value Reference Range Interpretation Comments SODIUM (BEAKER) (test code = 381) 139 meq/L 135-148 BLOOD GAS, [id number] 15:43:00 Test Item Value Reference Range Interpretation [...] (test code = 1819) 75.0 % GLUCOSE-STAT [id number] 15:43:00 Test Item Value Reference Range Interpretation Comments GLUCOSE RANDOM (BEAKER) (test code 189 mg/dL 70-110 H = 652) HGB/HCT (H&H) - STAT [id number] 15:43:00 Test Item Value Reference Range Interpretation Comments HEMOGLOBIN (BEAKER) (test code = 8.0 g/dL 13.0-16.8 L 410) HEMATOCRIT (BEAKER) (test code = 24.0 % 40.0-50.0 L 411) POTASSIUM-STAT [id number] 15:43:00 Test Item Value Reference Range Interpretation Comments POTASSIUM (BEAKER) (test code = 5.7 meq/L 3.6-5.5 H 379) SODIUM NA-STAT [id number] 15:42:00 Test Item Value Reference Range Interpretation Comments SODIUM (BEAKER) (test code = 381) 136 meq/L 135-148 SODIUM NA-STAT [id number] 15:06:00 Test Item Value Reference Range Interpretation Comments SODIUM (BEAKER) (test code = 381) 139 meq/L 135-148 BLOOD GAS, [id number] 15:06:00 Test Item Value Reference Range Interpretation [...] (test code = 1819) 60.0 % POTASSIUM-STAT [id number] 15:06:00 Test Item Value Reference Range Interpretation Comments POTASSIUM (BEAKER) (test code = 5.8 meq/L 3.6-5.5 H 379) GLUCOSE-STAT [id number] 15:06:00 Test Item Value Reference Range Interpretation Comments GLUCOSE RANDOM (BEAKER) (test code 192 mg/dL 70-110 H = 652) HGB/HCT (H&H) - STAT [id number] 15:06:00 Test Item Value Reference Range Interpretation Comments HEMOGLOBIN (BEAKER) (test code = 8.2 g/dL 13.0-16.8 L 410) HEMATOCRIT (BEAKER) (test code = 24.0 % 40.0-50.0 L 411) POTASSIUM-STAT [id number] 14:41:00 Test Item Value Reference Range Interpretation Comments POTASSIUM (BEAKER) (test code = 5.2 meq/L 3.6-5.5 379) BLOOD GAS, [id number] 14:41:00 Test Item Value Reference Range Interpretation [...] code = 1819) 60.0 % SODIUM NA-STAT [id number] 14:41:00 Test Item Value Reference Range Interpretation Comments SODIUM (BEAKER) (test code = 381) 134 meq/L 135-148 L GLUCOSE-STAT [id number] 14:41:00 Test Item Value Reference Range Interpretation Comments GLUCOSE RANDOM (BEAKER) (test code 195 mg/dL 70-110 H = 652) HGB/HCT (H&H) - STAT [id number] 14:41:00 Test Item Value Reference Range Interpretation Comments HEMOGLOBIN (BEAKER) (test code = 8.2 g/dL 13.0-16.8 L 410) HEMATOCRIT (BEAKER) (test code = 24.0 % 40.0-50.0 L 411) BLOOD GAS, [id number] 14:10:00 Test Item Value Reference Range Interpretation [...] (test code = 1819) 60.0 % GLUCOSE-STAT [id number] 14:10:00 Test Item Value Reference Range Interpretation Comments GLUCOSE RANDOM (BEAKER) (test code 177 mg/dL 70-110 H = 652) HGB/HCT (H&H) - STAT [id number] 14:10:00 Test Item Value Reference Range Interpretation Comments HEMOGLOBIN (BEAKER) (test code = 8.5 g/dL 13.0-16.8 L 410) HEMATOCRIT (BEAKER) (test code = 25.0 % 40.0-50.0 L 411) SODIUM NA-STAT [id number] 14:09:00 Test Item Value Reference Range Interpretation Comments SODIUM (BEAKER) (test code = 381) 136 meq/L 135-148 POTASSIUM-STAT [id number] 14:09:00 Test Item Value Reference Range Interpretation Comments POTASSIUM (BEAKER) (test code = 5.0 meq/L 3.6-5.5 379) SODIUM NA-STAT [id number] 13:39:00 Test Item Value Reference Range Interpretation Comments SODIUM (BEAKER) (test code = 381) 136 meq/L 135-148 POTASSIUM-STAT [id number] 13:39:00 Test Item Value Reference Range Interpretation Comments POTASSIUM (BEAKER) (test code = 5.0 meq/L 3.6-5.5 379) BLOOD GAS, [id number] 13:39:00 Test Item Value Reference Range Interpretation [...] (test code = 1819) 60.0 % GLUCOSE-STAT [id number] 13:39:00 Test Item Value Reference Range Interpretation Comments GLUCOSE RANDOM (BEAKER) (test code 179 mg/dL 70-110 H = 652) HGB/HCT (H&H) - STAT [id number] 13:39:00 Test Item Value Reference Range Interpretation Comments HEMOGLOBIN (BEAKER) (test code = 8.1 g/dL 13.0-16.8 L 410) HEMATOCRIT (BEAKER) (test code = 24.0 % 40.0-50.0 L 411) CALCIUM, [id number] 12:31:00 Test Item Value Reference Range Interpretation Comments CALCIUM IONIZED (BEAKER) (test 1.09 mmol/L 1.12-1.27 L code = 698) PH, BLOOD (BEAKER) (test code = 7.45 1810) GLUCOSE-STAT [id number] 12:30:00 Test Item Value Reference Range Interpretation Comments GLUCOSE RANDOM (BEAKER) (test code = 93 mg/dL 70-110 652) SODIUM NA-STAT [id number] 12:30:00 Test Item Value Reference Range Interpretation Comments SODIUM (BEAKER) (test code = 381) 140 meq/L 135-148 POTASSIUM-STAT [id number] 12:30:00 Test Item Value Reference Range Interpretation Comments POTASSIUM (BEAKER) (test code = 3.9 meq/L 3.6-5.5 379) BLOOD GAS, [id number] 12:30:00 Test Item Value Reference Range Interpretation [...] 1819) 100.0 % HGB/HCT (H&H) - STAT [id number] 12:30:00 Test Item Value Reference Range Interpretation Comments HEMOGLOBIN (BEAKER) (test code = 9.3 g/dL 13.0-16.8 L 410) HEMATOCRIT (BEAKER) (test code = 27.0 % 40.0-50.0 L 411) HEMOGLOBIN [id number] 10:02:00 Test Item Value Reference Range Interpretation Comments HEMOGLOBIN A1C (BEAKER) (test code = 4.4 % 4.3-6.1 368) POCT-GLUCOSE [id number] 09:52:00 Test Item Value Reference Range Interpretation Comments POC-GLUCOSE METER 115 mg/dL 70-[address] [facility] 6720 (BEAKER) (test code = FOSTER BRANDON 1538) [address] PROTHROMBIN [id number] 02:41:00 Test Item Value Reference Range Interpretation Comments PROTIME (BEAKER) (test code = 14.9 seconds 11.7-14.7 H 759) INR (BEAKER) (test code = 370) 1.2 <=5.9 RECOMMENDED COUMADIN/WARFARIN INR THERAPY RANGESSTANDARD DOSE: 2.0 - 3.0 Includes: PROPHYLAXIS forvenous thrombosis, systemic embolization; TREATMENT for venous thrombosis and/or pulmonary embolus.HIGH RISK: Target INR is 2.5-3.5 for patients with mechanical heart valves.BASIC METABOLIC [id number] 00:29:00 Test Item Value Reference Range Interpretation [...] S NOT APPLICABLE FOR DIALYSIS PATIEN TS. [id number] 00:22:00 Test Item Value Reference Range Interpretation Comments MAGNESIUM (BEAKER) 2.5 mg/dL 1.6-2.6 Specimen slightly (test code = 627) hemolyzed [id number] 00:14:00 Test Item Value Reference Range Interpretation Comments PARTIAL THROMBOPLASTIN TIME 38.6 seconds 22.5-36.0 H (BEAKER) (test code = 760) CBC W/PLT COUNT & AUTO [id number] 00:07:00 Test Item Value Reference Range Interpretation [...] 0-1 PERCENT (BEAKER) (test code = 2801) [id number] 17:03:00 Test Item Value Reference Range Interpretation Comments THYROID STIMULATING HORMONE 1.30 uIU/mL 0.35-4.94 (BEAKER) (test code = 772) HEPATIC FUNCTION [id number] 16:43:00 Test Item Value Reference Range Interpretation [...] 69 U/L 6-55 H 347) BASIC METABOLIC [id number] 15:47:00 Test Item Value Reference Range Interpretation [...] S NOT APPLICABLE FOR DIALYSIS PATIEN TS. [id number] 14:57:00 Test Item Value Reference Range Interpretation Comments PARTIAL THROMBOPLASTIN TIME 82.9 seconds 22.5-36.0 H (BEAKER) (test code = 760) CBC W/PLT COUNT & AUTO [id number] 14:48:00 Test Item Value Reference Range Interpretation [...] PERCENT (BEAKER) (test code = 2801) POCT-GLUCOSE [id number] 11:13:00 Test Item Value Reference Range Interpretation Comments POC-GLUCOSE METER 207 mg/dL 70-[address] [facility] 6720 (BEAKER) (test code = FOSTER Paul [facility] 1538) [address] POCT-GLUCOSE [id number] 08:08:00 Test Item Value Reference Range Interpretation Comments POC-GLUCOSE METER 124 mg/dL 70-[address] [facility] 6720 [facility] (test code = [facility] Humberto [facility] 1538) [address] [id number] 06:51:00 Test Item Value Reference Range Interpretation Comments PARTIAL THROMBOPLASTIN TIME 54.6 seconds 22.5-36.0 H (BEAKER) (test code = 760) HEPATITIS B SURFACE [id number] 00:28:00 Test Item Value Reference Range Interpretation Comments HEPATITIS B SURFACE ANTIGEN (2) Nonreactive Nonreactive (BEAKER) (test code = 2585) [id number] 00:06:00 Test Item Value Reference Range Interpretation Comments PHOSPHORUS (BEAKER) (test code = 3.2 mg/dL 2.3-4.7 604) [id number] 00:03:00 Test Item Value Reference Range Interpretation Comments PARTIAL THROMBOPLASTIN TIME 36.0 seconds 22.5-36.0 (BEAKER) (test code = 760) CBC W/PLT COUNT & AUTO [id number] 23:45:00 Test Item Value Reference Range Interpretation [...] PERCENT (BEAKER) (test code = 2801) POCT-GLUCOSE [id number] 17:39:00 Test Item Value Reference Range Interpretation Comments POC-GLUCOSE METER 116 mg/dL 70-[address] [facility] 6720 (BEAKER) (test code = FOSTER BRANDON 1538) [address] [id number] 15:35:00 Test Item Value Reference Range Interpretation Comments THYROID STIMULATING HORMONE 1.39 uIU/mL 0.35-4.94 (JARROD) (test code = 772) [id number] 15:06:00 Test Item Value Reference Range Interpretation Comments PARTIAL THROMBOPLASTIN TIME 31.0 seconds 22.5-36.0 (JARROD) (test code = 760) Prior to initiating heparinPROTHROMBIN TIME/[id number] 15:05:00 Test Item Value Reference Range Interpretation Comments PROTIME (JARROD) (test code = 14.4 seconds 11.7-14.7 759) INR (JARROD) (test code = 370) 1.1 <=5.9 RECOMMENDED COUMADIN/WARFARIN INR THERAPY RANGESSTANDARD DOSE: 2.0 - 3.0 Includes: PROPHYLAXIS forvenous thrombosis, systemic embolization; TREATMENT for venous thrombosis and/or pulmonary embolus.HIGH RISK: Target INR is 2.5-3.5 for patients with mechanical heart valves.PLATELET [id number] 14:52:00 Test Item Value Reference Range Interpretation Comments PLATELET COUNT (JARROD) (test 109 K/CU MM 150-450 L code = 756) POCT-GLUCOSE [id number] 12:00:00 Test Item Value Reference Range Interpretation Comments POC-GLUCOSE METER 186 mg/dL 70-[address] [facility] 6720 (JARROD) (test code = FOSTER [place] 1538) [address] RAD, CHEST, 1 VIEW, NON [id number] 11:43:00Reason for exam:->SOB, known severe MRShould this be performed at the bedside?->YesFINAL REPORT Chest one view AP 01/08/2018 11:42 AM CLINICAL INDICATION: SOB, kno wn severe MR COMPARISON: 12/02/2017 IMPRESSION: Cardiomediastinal contours are stable. There is mild pulmonary edema. There are trace bilateral pleural effusions. Signed: Yevgeniy Anderson Verified Date/Time: 01/08/2018 11:43:52 Reading Location: [facility] Radiology Reading Room Electronic ally signed by: YEVGENIY ANDERSON M.D. on 01/08/2018 11:43 AMRAPID CK-MB 2017-12-02 10:04:00 Test Item Value Reference Range Interpretation Comments RAPID CKMB (BEAKER) (test code = 1.5 ng/mL 0.0-4.3 1482) RAPID TROPONIN [id number] 10:04:00 Test Item Value Reference Range Interpretation Comments RAPID TROPONIN I (BEAKER) (test code < ng/mL <0.05 = 1483) RAD, CHEST, 2 [id number] 10:00:00Reason for exam:->Chest PainFINAL REPORT Chest two views Discussion: Heart size upper limits of normal. Bilateral interstitial edema with small bilateral effusions. No pneumothorax. Bones and soft tissues unremarkable. Signed: Rhea Colindreseport Verified Date/Time: 12/02/2017 10:00:39 Reading Location:[facility] Radiology Reading Room B-TYPE NATRIURETIC FACTOR (BNP)2017-12-02 09:56:00 Test Item Value Reference Range Interpretation Comments B-TYPE NATRIURETIC PEPTIDE 1990 pg/mL 0-100 H (BEAKER) (test code = 700) BASIC METABOLIC [id number] 09:52:00 Test Item Value Reference Range Interpretation [...] S NOT APPLICABLE FOR DIALYSIS PATIEN TS. [id number] 09:51:00 Test Item Value Reference Range Interpretation Comments MAGNESIUM (BEAKER) (test code = 1.7 mg/dL 1.5-3.0 627) CBC W/PLT COUNT & AUTO [id number] 09:50:00 Test Item Value Reference Range Interpretation [...] (BEAKER) (test code = 417) CD4/CD8 Ratio [id number] 08:04:00 Test Item Value Reference Range Interpretation Comments Absolute CD 4 [place] (test code 188 /uL 359-1519 L = 265658) % CD 4 Pos. Lymph. (test code = 37.6 % 30.8-58.5 N 394583) Abs. CD 8 Suppressor (test code 183 /uL 109-897 N = 258759) % CD 8 Pos. Lymph. (test code = 36.6 % 12.0-35.5 H 518503) CD4/CD8 Ratio (test code = 1.03 0.92-3.72 N 320810) WBC (test code = 442928) 5.0 x10E3/uL 3.4-10.8 N RBC (test code = 995535) 3.00 x10E6/uL 4.14-5.80 L Hemoglobin (test code = 501257) 9.6 g/dL 13.0-17.7 L Hematocrit (test code = 782773) 27.6 % 37.5-51.0 L MCV (test code = 045815) 92 fL 79-97 N MCH (test code = 596306) 32.0 pg 26.6-33.0 N MCHC (test code = 912844) 34.8 g/dL 31.5-35.7 N RDW (test code = 451687) 15.5 % 12.3-15.4 H Platelets (test code = 568978) 113 x10E3/uL 150-379 L Neutrophils (test code = 84 % Not Estab. N 197387) Lymphs (test code = 361922) 9 % Not Estab. N Monocytes (test code = 163357) 6 % Not Estab. N Eos (test code = 041564) 1 % Not Estab. N Basos (test code = 334600) 0 % Not Estab. N Neutrophils (Absolute) (test 4.2 x10E3/uL 1.4-7.0 N code = 120147) Lymphs (Absolute) (test code = 0.5 x10E3/uL 0.7-3.1 L 522317) Monocytes(Absolute) (test code 0.3 x10E3/uL 0.1-0.9 N = 845146) Eos (Absolute) (test code = 0.0 x10E3/uL 0.0-0.4 N 581428) Baso (Absolute) (test code = 0.0 x10E3/uL 0.0-0.2 N 264314) Immature Granulocytes (test 0 % Not Estab. N code = 388625) Immature Grans (Abs) (test code 0.0 x10E3/uL 0.0-0.1 N = 577300) Culture, Blood [id number] 08:42:00Specimen: BloodCollected: 11/19/2017 00:21 Status: Final Last Updated: 11/24/2017 08:42 Culture Result (Final) (Final) No Growth After 5 DaysCulture, Blood [id number] 08:42:00 Specimen: BloodCollected: 11/18/2017 20:30 Status: Final Last Updated: 11/24/2017 08:42 Culture Result (Final) (Final) No Growth After 5 DaysPOC Glucose, [id number] 11:51:00 Test Item Value Reference Range Interpretation Comments POC Glucose (test 148 mg/dL 70-115 H Notify RN or MDIf you code = POCGLUC) consider you r patient critically ill, the [facility] Accu-Chek InformII metershould not be used for Glucose determinations. Draw a venous Glucose and send to the Main Lab for Analysis. CK [id number] 07:42:00 Test Item Value Reference Range Interpretation Comments CK (test code = CK) na U/L 39-308 N CKMB (test code = CKMB) 4.0 ng/mL 0.0-4.9 N CKMB% (test code = CKMBP) 0.0 % 0.0-3.4 N [id number] 07:39:00 Test Item Value Reference Range Interpretation Comments NT ProBnp (test code = PBNP) >98034 pg/mL 0-124 H Troponin [id number] 07:18:00 Test Item Value Reference Range Interpretation Comments Troponin T (test code = MADHAV) 0.103 ng/mL 0.000-0.090 H Lactate [id number] 07:18:00 Test Item Value Reference Range Interpretation Comments LDH (test code = LDH) 271 U/L 135-225 H POC Glucose, [id number] 06:50:00 Test Item Value Reference Range Interpretation Comments POC Glucose (test 154 mg/dL 70-115 H Notify RN or MDIf you code = POCGLUC) consider you r patient critically ill, the [facility] Accu-Chek InformII metershould not be used for Glucose determinations. Draw a venous Glucose and send to the Main Lab for Analysis. CK [id number] 01:08:00 Test Item Value Reference Range Interpretation Comments CK (test code = CK) na U/L 39-308 N CKMB (test code = CKMB) 3.6 ng/mL 0.0-4.9 N CKMB% (test code = CKMBP) 0.0 % 0.0-3.4 N Troponin [id number] 01:08:00 Test Item Value Reference Range Interpretation Comments Troponin T (test code = MADHAV) 0.106 ng/mL 0.000-0.090 H XR CHEST 1 [id number] 21:02:01CLINICAL INFORMATION: Vascular congestion.Dictation Location: R 16Comparison: 11/18/2017 showed perihilar and lower lobe opacities. Technique: Portable AP 1951 hoursFINDINGS: Monitoring electrodes overlie the chest wall. Cardiomegaly withincreasing central vascular interstitial prominence with bibasilaropacities and effusions. No interval bone changes.IMPRESSION: Changes could indicate worsening cardiac decompensation orfluid overload.POC Glucose, [id number] 20:15:00 Test Item Value Reference Range Interpretation Comments POC Glucose (test 139 mg/dL 70-115 H If you con brake liner your code = POCGLUC) patient crit ically ill, the [facility] Accu- Chek InformII meters hould not be used for Glu cose determinations. Draw a venous Glucose and send to the Main Lab for Analysis. POC Glucose, [id number] 16:52:00 Test Item Value Reference Range Interpretation Comments POC Glucose (test 123 mg/dL 70-115 H If you con brake liner your code = POCGLUC) patient crit ically ill, the [facility] Accu- Chek InformII meters hould not be used for Glu cose determinations. Draw a venous Glucose and send to the Main Lab for Analysis. POC Glucose, [id number] 12:04:00 Test Item Value Reference Range Interpretation Comments POC Glucose (test 140 mg/dL 70-115 H If you con brake liner your code = POCGLUC) patient crit ically ill, the [facility] Accu- Chek InformII meters hould not be used for Glu cose determinations. Draw a venous Glucose and send to the Main Lab for Analysis. POC Glucose, [id number] 08:01:00 Test Item Value Reference Range Interpretation Comments POC Glucose (test 126 mg/dL 70-115 H If you con brake liner your code = POCGLUC) patient crit ically ill, the [facility] Accu- Chek InformII meters hould not be used for Glu cose determinations. Draw a venous Glucose and send to the Main Lab for Analysis. CK [id number] 06:03:00 Test Item Value Reference Range Interpretation Comments CK (test code = CK) na U/L 39-308 N CKMB (test code = CKMB) 2.8 ng/mL 0.0-4.9 N CKMB% (test code = CKMBP) 0.0 % 0.0-3.4 N Basic Metabolic [id number] 05:51:00 Test Item Value Reference Range Interpretation [...] the National Kidney Foundation,http ://nkd ep.nih.gov Magnesium, [id number] 05:51:00 Test Item Value Reference Range Interpretation Comments Magnesium (test code = MG) 1.9 mg/dL 1.7-2.5 N [id number] 05:51:00 Test Item Value Reference Range Interpretation Comments Phosphorus (test code = PO4) 3.8 mg/dL 2.70-4.50 N [id number] 05:51:00 Test Item Value Reference Range Interpretation Comments NT ProBnp (test code = PBNP) >06945 pg/mL 0-124 H Troponin [id number] 05:51:00 Test Item Value Reference Range Interpretation Comments Troponin T (test code = MADHAV) 0.126 ng/mL 0.000-0.090 H CBC with [id number] 05:34:00 Test Item Value Reference Range Interpretation [...] code = ALYMPH) 0.4 K/cumm 0.5-4.[address] Abs (test code = AMONO) 0.6 K/cumm 0.0-1.2 N Eos Abs (test code = AEOS) 0.13 K/cumm 0.00-0.74 N Baso Abs (test code = ABASO) 0.0 K/cumm 0.00-0.21 N CK [id number] 18:39:00 Test Item Value Reference Range Interpretation Comments CK (test code = CK) HIDE U/L 39-308 N CKMB (test code = CKMB) 3.2 ng/mL 0.0-4.9 N CKMB% (test code = CKMBP) HIDE % 0.0-3.4 N Troponin [id number] 18:39:00 Test Item Value Reference Range Interpretation Comments Troponin T (test code = MADHAV) 0.126 ng/mL 0.000-0.090 H Hep B Surface [id number] 18:39:00 Test Item Value Reference Range Interpretation Comments Hep Bs Ag (test code = HBSAG) Nonreactive Non-Reactive A POC Glucose, [id number] 16:47:00 Test Item Value Reference Range Interpretation Comments POC Glucose (test 143 mg/dL 70-115 H If you con brake liner your code = POCGLUC) patient crit ically ill, the [facility] Accu- Chek InformII meters hould not be used for Glu cose determinations. Draw a venous Glucose and send to the Main Lab for Analysis. XR CHEST 1 [id number] 08:18:18EXAM: Portable AP chest x-rayLOCATION: R16 INDICATION: CoughCOMPARISON: 11/07/2017FINDINGS:The cardiacsilhouette is stable enlargement. There are increasinginterstitial opacities, most evident in the per ihilar regions and lowerlobes. There is blunting of the costophrenic angles bilaterally. Thereis no discernible pneumothorax.IMPRESSION:Increasing perihilar and bilateral lower lobe opacities compared to theprior exam dated 11/07/2017. Findings may represent pulmonary edema orpneumonia in the appropriate clinical setting.Comprehensive Metabolic [id number] 08:05:00 Test Item Value Reference Range Interpretation [...] the National Kidney Foundation,http ://nkd ep.nih.gov CK [id number] 08:05:00 Test Item Value Reference Range Interpretation Comments CK (test code = CK) 149 U/L 39-308 N Troponin [id number] 08:02:00 Test Item Value Reference Range Interpretation Comments Troponin T (test code = MADHAV) 0.114 ng/mL 0.000-0.090 H [id number] 08:02:00 Test Item Value Reference Range Interpretation Comments NT ProBnp (test code = PBNP) >76599 pg/mL 0-124 H CBC with [id number] 07:53:00 Test Item Value Reference Range Interpretation [...] code = ALYMPH) 0.9 K/cumm 0.5-4.[address] Abs (test code = AMONO) 0.4 K/cumm 0.0-1.2 N Eos Abs (test code = AEOS) 0.11 K/cumm 0.00-0.74 N Baso Abs (test code = ABASO) 0.0 K/cumm 0.00-0.21 N XR CHEST 1 [id number] 21:38:09EXAM: CHEST ONE VIEWINDICATION: CoughCOMPARISON: October 06, 2017TECHNIQUE: AP view of the chest.FINDINGS: The cardiomediastinal silhouette is unchanged. Mild congestive changesbilaterally. No pneumothorax or pleural effusion is identified. Theosseous structures are unremarkable.IMPRESSION: Diffuse congestive changes bilaterally.LOCATION: R16US DUPLX EXT VEINS COMPRS, [id number] 20:09:34AFTER HOURS SERVICE ON: 10/06/2017 8:09 PMRIGHT Lower Extremity Venous Duplex Doppler ExaminationLocation Code S19Saarcaz: SwellingTechnique: Real-time castillo scale, Doppler spectral analysis [...] Lower Extremity Venous Duplex Doppler ExaminationLocation Code V49Pnmkh ry: SwellingTechnique: Real-time castillo scale, Doppler spectral [...] of DVT in the imaged vessels.Comprehensive Metabolic [id number] 17:40:00 Test Item Value Reference Range Interpretation [...] been validated by e MDRD study and shoul d be interpretedwith caution.eGFR Re sult Interpretation: eGFR > or = 60 is in t he Normal RangeeGF R < 60 may mean kidney diseaseeGFR < 1 5 may mean kidney failureRange s recommended by the National Kidney Foundation,http ://nkd ep.nih.gov CBC with [id number] 17:15:00 Test Item Value Reference Range Interpretation [...] code = ALYMPH) 1.3 K/cumm 0.5-4.[address] Abs (test code = AMONO) 0.6 K/cumm 0.0-1.2 N Eos Abs (test code = AEOS) 0.12 K/cumm 0.00-0.74 N Baso Abs (test code = ABASO) 0.0 K/cumm 0.00-0.21 N XR CHEST 1 [id number] 16:56:42CHEST 1 VIEW: [id number]: coughCOMPARISON:Sep 24, 2017FINDINGS:The heart is enlarged. There is engorgement of the central pulmonaryvasculature. There are patchy bibasilar areas of infiltrate oratelectasis with bilateral effusions. No pneumothorax is present. IMPRESSION: 1. Patchy areas of atelectasis or infiltrate in the lung bases withsmall bilateral effusions and vascular congestion most likely secondaryto CHF.Culture, Blood [id number] 14:58:00Specimen: BloodCollected: 09/24/2017 13:05 Status: Final Last Updated: 09/29/2017 14:58 (1) ER Bed 1 Culture Result (Final) (Final) No Growth After 5 DaysCulture, Blood [id number] 14:58:00Specimen: BloodCollected: 09/24/2017 12:50 Status: Final Last Updated: 09/29/2017 14:58 (1) ER Bed 1 Culture Result (Final) (Final) No Growth After 5 DaysPOC Glucose, [id number] 10:54:00 Test Item Value Reference Range Interpretation Comments POC Glucose (test 168 mg/dL 70-115 H If you con brake liner your code = POCGLUC) patient crit ically ill, the [facility] Accu- Chek InformII meters hould not be used for Glu cose determinations. Draw a venous Glucose and send to the Main Lab for Analysis. POC Glucose, [id number] 07:16:00 Test Item Value Reference Range Interpretation Comments POC Glucose (test 143 mg/dL 70-115 H If you con brake liner your code = POCGLUC) patient crit ically ill, the [facility] Accu- Chek InformII meters hould not be used for Glu cose determinations. Draw a venous Glucose and send to the Main Lab for Analysis. CBC with [id number] 07:15:00 Test Item Value Reference Range Interpretation [...] code = ALYMPH) 1.3 K/cumm 0.5-4.[address] Abs (test code = AMONO) 0.7 K/cumm 0.0-1.2 N Eos Abs (test code = AEOS) 0.07 K/cumm 0.00-0.74 N Baso Abs (test code = ABASO) 0.0 K/cumm 0.00-0.21 N Magnesium, [id number] 07:03:00 Test Item Value Reference Range Interpretation Comments Magnesium (test code = MG) 2.0 mg/dL 1.7-2.5 N Basic Metabolic [id number] 07:03:00 Test Item Value Reference Range Interpretation [...] National Kidney Foundation,http ://nkd ep.nih.gov POC Glucose, [id number] 21:40:00 Test Item Value Reference Range Interpretation Comments POC Glucose (test 129 mg/dL 70-115 H If you con brake liner your code = POCGLUC) patient crit ically ill, the [facility]eline Accu- Chek InformII meters hould not be used for Glu cose determinations. Draw a venous Glucose and send to the Main Lab for Analysis. Hep B Surface [id number] 18:36:00 Test Item Value Reference Range Interpretation Comments Hep Bs Ag (test code = HBSAG) Nonreactive Non-Reactive A POC Glucose, [id number] 10:51:00 Test Item Value Reference Range Interpretation Comments POC Glucose (test 216 mg/dL 70-115 H If you con brake liner your code = POCGLUC) patient crit ically ill, the [facility]eline Accu- Chek InformII meters hould not be used for Glu cose determinations. Draw a venous Glucose and send to the Main Lab for Analysis. POC Glucose, [id number] 07:57:00 Test Item Value Reference Range Interpretation Comments POC Glucose (test 164 mg/dL 70-115 H If you con brake liner your code = POCGLUC) patient crit ically ill, the [facility]eline Accu- Chek InformII meters hould not be used for Glu cose determinations. Draw a venous Glucose and send to the Main Lab for Analysis. POC Glucose, [id number] 19:47:00 Test Item Value Reference Range Interpretation Comments POC Glucose (test 140 mg/dL 70-115 H Notify RN or MDIf you code = POCGLUC) consider you r patient critically ill, the [facility] Accu-Chek InformII metershould not be used for Glucose determinations. Draw a venous Glucose and send to the Main Lab for Analysis. Troponin [id number] 19:36:00 Test Item Value Reference Range Interpretation Comments Troponin T (test code = MADHAV) 0.121 ng/mL 0.000-0.090 H CK [id number] 19:25:00 Test Item Value Reference Range Interpretation Comments CK (test code = CK) 160 U/L 39-308 N The valu e HIDE originally released by [facility] on 09/25/2017 19:1 2 waschanged to 1 60 by GINO on 09/25 19:24 CKMB (test code = 3.0 ng/mL 0.0-4.9 N CKMB) CKMB% (test code = 1.9 % 0.0-3.4 N The value HIDE originally CKMBP) released by [facility] [place] on 09/25/2017 19:1 2 waschanged to 1 .9 by GINO on 09/25 19:24 POC Glucose, [id number] 16:42:00 Test Item Value Reference Range Interpretation Comments POC Glucose (test 123 mg/dL 70-115 H If you con brake liner your code = POCGLUC) patient crit ically ill, the [facility] Accu- Chek InformII meters hould not be used for Glu cose determinations. Draw a venous Glucose and send to the Main Lab for Analysis. POC Glucose, [id number] 12:09:00 Test Item Value Reference Range Interpretation Comments POC Glucose (test 141 mg/dL 70-115 H If you con brake liner your code = POCGLUC) patient crit ically ill, the [facility] Accu- Chek InformII meters hould not be used for Glu cose determinations. Draw a venous Glucose and send to the Main Lab for Analysis. Hep B Surface [id number] 07:59:00 Test Item Value Reference Range Interpretation Comments Hep Bs Ag (test code = HBSAG) Nonreactive Non-Reactive A CK [id number] 07:43:00 Test Item Value Reference Range Interpretation Comments CK (test code = CK) n/a U/L 39-308 N CKMB (test code = CKMB) 2.4 ng/mL 0.0-4.9 N CKMB% (test code = CKMBP) 0.0 % 0.0-3.4 N Troponin [id number] 07:38:00 Test Item Value Reference Range Interpretation Comments Troponin T (test code = MADHAV) 0.134 ng/mL 0.000-0.090 H Thyroid Stimulating Hormone (TSH)2017-09-25 07:38:00 Test Item Value Reference Range Interpretation Comments TSH (test code = TSH) 1.10 mIU/mL 0.270-4.200 N [id number] 07:38:00 Test Item Value Reference Range Interpretation Comments Phosphorus (test code = PO4) 3.4 mg/dL 2.70-4.50 N Comprehensive Metabolic [id number] 07:38:00 Test Item Value Reference Range Interpretation [...] is not provided , and the patient isJose can, multiply by 1.2 12. If sex is not prov ided, and thepatient is female, multipl y by 0.742. Results for patients <18 ye ars ofage have not been validated by th e MDRD study and yakelin d be interpretedwith caution.eGFR Re sult Interpretation: eGFR > or = 60 is in t he Normal RangeeGF R < 60 may mean kidney diseaseeGFR < 1 5 may mean kidney failureRange s recommended by the National Kidney Foundation,http ://nkd ep.nih.gov Magnesium, [id number] 07:38:00 Test Item Value Reference Range Interpretation Comments Magnesium (test code = MG) 2.0 mg/dL 1.7-2.5 N CK [id number] 07:31:00 Test Item Value Reference Range Interpretation Comments CK (test code = CK) 159 U/L 39-308 N Lipid [id number] 07:31:00 Test Item Value Reference Range Interpretation Comments Cholesterol (test 118 mg/dL 0-200 N code = CHOL) Triglycerides (test 170 mg/dL 9-200 N code = TRIG) HDL (test code = 49 mg/dL 40-60 N HDL) Chol/HDL (test code 2.4 Ratio 0.0-5.0 N = CHOLPHDL) LDL, Calculated 35 0-130 N (NOTE)RISK O F HEART (test code = LDLC) DISEASEPu blished by [place] Heart AssociationAnal yte Optim al Boderline Increased RiskC HOL <200 200-239 >240TRI G <150 150-199 >200HDL Male: >60 <40HDL Female: >60 <50 LDL < 100 130-15 9 >160 LDL NEAR OPTIMAL IS 100- 129 VLDL (test code = 34 mg/dL 5-40 N VLDL) LDL/HDL (test code = 1 LDLPHDL) Glycosylated [id number] 07:24:00 Test Item Value Reference Range Interpretation Comments HBA1c (test code = HBA1C) 5.0 % 4.8-5.9 N CBC with [id number] 07:20:00 Test Item Value Reference Range Interpretation [...] code = ALYMPH) 0.8 K/cumm 0.5-4.[address] Abs (test code = AMONO) 0.5 K/cumm 0.0-1.2 N Eos Abs (test code = AEOS) 0.10 K/cumm 0.00-0.74 N Baso Abs (test code = ABASO) 0.0 K/cumm 0.00-0.21 N POC Glucose, [id number] 07:03:00 Test Item Value Reference Range Interpretation Comments POC Glucose (test 147 mg/dL 70-115 H If you con brake liner your code = POCGLUC) patient crit ically ill, the Madeline Accu- Chek InformII meters hould not be used for Glu cose determinations. Draw a venous Glucose and send to the Main Lab for Analysis. POC Glucose, [id number] 22:05:00 Test Item Value Reference Range Interpretation Comments POC Glucose (test 134 mg/dL 70-115 H If you con brake liner your code = POCGLUC) patient crit ically ill, the Madeline Accu- Chek InformII meters hould not be used for Glu cose determinations. Draw a venous Glucose and send to the Main Lab for Analysis. Blood Gas+Lytes+Glu+Ca+Hgb+Hct+[id number] 18:31:00 Test Item Value Reference Range Interpretation [...] (test code = alokrblvverqnscrit COMMENT) liz Pierre@ 13617/23figrrt Puncture Site (test code = Radial. R PUNSITE) Drawing Tech ID (test code gianfranco fi = DRAWTECH) iPAP (test code = IPAP) 0 cmH2O Respiratory Rate (test code 0 = RESP RATE) Lactic Acid, Blood Gas 0.4 mmol/L (test code = BGLA) CT CHEST W/O [id number] 16:48:03CT CHEST W/O CONTRASTLOCATION CODE: R16 HISTORY: [...] bilateral axillary, prevascular, andparatracheal lymph nodes.Influenza B [id number] 14:36:00Specimen: NasalCollected: 09/24/2017 14:04 Status: Final Last [...] is not provided , and the patient isAfelliotan-Amelijah can, multiply by 1.2 12. If sex [...] the National Kidney Foundation,http ://nkd ep.nih.gov Troponin [id number] 13:54:00 Test Item Value Reference Range Interpretation Comments Troponin T (test code = MADHAV) 0.124 ng/mL 0.000-0.090 H [id number] 13:54:00 Test Item Value Reference Range Interpretation Comments NT ProBnp (test code = PBNP) >96144 pg/mL 0-124 H CK [id number] 13:54:00 Test Item Value Reference Range Interpretation Comments CK (test code = CK) 222 U/L 39-308 N CKMB (test code = CKMB) 3.1 ng/mL 0.0-4.9 N CKMB% (test code = CKMBP) 1.4 % 0.0-3.4 N CK [id number] 13:54:00 Test Item Value Reference Range Interpretation Comments CK (test code = CK) 222 U/L 39-308 N Partial Thromboplastin [id number] 13:43:00 Test Item Value Reference Range Interpretation Comments aPTT (test code = PTT) 35.70 seconds 24.39-37.25 N Prothrombin [id number] 13:43:00 Test Item Value Reference Range Interpretation Comments PT (test code = PT) 11.30 seconds 9.78-13.35 N INR (test code = INR) 0.99 Ratio 0.6-1.2 N Lactic Acid [id number] 13:41:00 Test Item Value Reference Range Interpretation Comments Lactic Acid, Bld (test code = LAC) 1.3 mmol/L 0.5-1.9 N CBC with [id number] 13:32:00 Test Item Value Reference Range Interpretation [...] code = ALYMPH) 1.2 K/cumm 0.5-4.[address] Abs (test code = AMONO) 0.6 K/cumm 0.0-1.2 N Eos Abs (test code = AEOS) 0.23 K/cumm 0.00-0.74 N Baso Abs (test code = ABASO) 0.0 K/cumm 0.00-0.21 N XR CHEST 1 [id number] 12:50:14XR CHEST 1 VIEWLOCATION: [id number]: None.INDICATION: CoughDISCUSSION:A single portable chest radiograph was [...]
[2020-05-02 12:34] LABS: Absolute Lymphocytes (CBC) 0.9 K/uL (0.7-4.9); Basophils % 0.7 % (0-1.3); Hematocrit 30.3 % (39.6-49.0); Lymphocytes % 14.3 % (15.3-44.8); MPV 6.9 fL (7.6-11.3); RBC Red Blood Cell Count 3.11 M/uL (4.33-5.43)
[2020-05-02 12:53] LABS: Albumin 3.5 g/dL (3.4-5.0); Bilirubin Direct 0.3 mg/dL (0-0.2); Bilirubin Total 0.7 mg/dL (0.2-1.0); Potassium 4.1 mmol/L (3.5-5.1); Protein, Total 8.7 g/dL (6.4-8.2)
--- NOTE | 2020-05-02 12:56 | RAD REPORT ---
EXAM DESCRIPTION: CT - Abdomen Pelvis Wo Contrast - 05/02/2020 12:44 pm CLINICAL HISTORY: diarrhea;Abd pain COMPARISON: Abdomen Pelvis W Contrast dated 05/18/2018; Thorax Wo Con dated 04/25/2020 TECHNIQUE: Axial [address] imaging of the abdomen and pelvis was performed without IV contrast. No IV contrast was given because of allergy, abnormal renal function, patient refusal or physician re quest. No oral contrast given. All CT scans are performed using dose optimization technique as appropriate and may include automated exposure control or mA/KV adjustment according to patient size. FINDINGS: Lung base images show a large pleural effusion that shows evidence of loculation. Partial atelectasis seen in the left lower lobe. Chronic pleural and parenchymal opacification in the posteri or gutter on the right unchanged from the short interval April 25 study. Cardiomegaly is present without pericardial effusion. The liver, spleen and pancreas show no suspicious findings for noncontrast imaging. 84 millimeter gal lstone is present. This is near the neck of the gallbladder. No wall thickening or pericholecystic fl uid. No biliary tree dilatation. No hydronephrosis present. Vascular calcifications are present but no obstructing or nonobstructing G U calculi seen. Both kidneys are small with cortical thinning. Degree of function of the kidneys is u nknown. Minimal perinephric stranding matches comparison. No significant adrenal finding. Isodense r enal masses and pyelonephritis cannot be excluded in the absence of IV contrast. Urinary bladder is f ully contracted limits assessment. No dilated bowel loops or bowel wall thickening. Minimal diverticulosis is present without diverticul itis. No active GI process seen. No free air or pneumatosis. Trace amount of free fluid in the dependent portion of the pelvis. No ab normal fluid retention in the subcutaneous fat. No hernia, mass or bulky lymphadenopathy. No suspicious bony findings. Left hip surgical hardware in place. IMPRESSION: Noncontrast CT abdomen and pelvis imaging shows no acute or emergent abdominal or pelvic finding. Nonacute findings detailed in the body of the report. Large loculated pleural effusion on the left with chronic pleural and parenchymal opacification in th e right base. Full assessment is limited is the absence of IV contrast.
[2020-05-02] MEDS ORDERED: NA CHLORIDE 0.9% 250 ML ONE (13:13)
--- NOTE | 2020-05-02 13:56 | EDPHYS ---
Physician Documentation [facility] Name: Salvatore Goldman Age: 65 yrs Sex: Male : 1955 Arrival Date: 05/02/2020 Time: 10:58 Bed 14 Private MD: ED Physician Manuel Montgomery HPI: 05/02 13:07 This 65 yrs old Black Male presents to ER via Wheelchair with complaints of Weakness, rn Diarrhea. 13:07 The patient presents to the emergency department with diarrhea. Onset: The rn symptoms/episode began/occurred 4 day(s) ago. Possible causes: unknown. The symptoms are aggravated by nothing. The symptoms are alleviated by nothing. Severity of symptoms: At their worst the symptoms were mild in the emergency department the symptoms are unchanged. The patient has not experienced similar symptoms in the past. The patient has not recently seen a physician. Reports non-bloody, green diarrhea, began 4 days ago, no fever, + generalized weakness. Feels dehydrated. . Historical: - Allergies: 11:32 No Known Allergies; aa5 - PMHx: 11:32 Cirrhosis; Diabetes - NIDDM; Dialysis; heart valve; Hepatitis; HIV; Hyperlipidemia; aa5 Karposi Sarcoma (left leg); kidney failure; L arm HD access; - PSHx: 11:32 left forearm dialysis fistula; partial lobectomy right; CABG; heart valve replacement; aa5 - Immunization history:: Adult Immunizations unknown. - Social history:: Smoking status: Patient denies any tobacco usage or history of. - Family history:: not pertinent. - Hospitalizations: : No recent hospitalization is reported. ROS: 13:07 Constitutional: Negative for fever, chills, and weight loss, Eyes: Negative for injury, rn pain, redness, and discharge, Neck: Negative for injury, pain, and swelling, Cardiovascular: Negative for chest pain, palpitations, and edema, Respiratory: Negative for shortness of breath, cough, wheezing, and pleuritic chest pain, Abdomen/GI: Negative for abdominal pain, nausea, vomiting,and constipation, MS/Extremity: Negative for injury and deformity, Skin: Negative for injury, rash, and discoloration, Neuro: Negative for headache, numbness, tingling, and seizure. Exam: 13:07 Constitutional: This is a well developed, well nourished patient who is awake, alert, rn and in no acute distress. Head/Face: Normocephalic, atraumatic. ENT: dry MM Cardiovascular: Regular rate and rhythm. No pulse deficits. Respiratory: No increased work of breathing, no retractions or nasal flaring. Abdomen/GI: soft, non-tender, non-distended MS/ Extremity: Pulses equal, no cyanosis. Neurovascular intact. Full, normal range of motion. Equal circumference. Neuro: Awake and alert, GCS 15 Vital Signs: 11:30 BP 180 / 102; Pulse 92; Resp 16 S; Temp 98.5(O); Pulse Ox 97% on R/A; aa5 12:48 BP 199 / 99; Pulse 64; Resp 20; Pulse Ox 99% on R/A; jr10 13:10 BP 163 / 110; Pulse 100; Resp 20; Pulse Ox 97% on R/A; Pain 0/10; jr10 14:30 BP 164 / 97; Pulse 88; Resp 20; Temp 98.5; Pulse Ox 99% on R/A; jr10 MDM: 12:00 Patient medically screened. rn 13:54 Differential diagnosis: Nonspecific abd pain, diverticulitis, viral gastroenteritis, rn gastroenteritis, colitis. Data reviewed: vital signs, nurses notes, lab test result(s), radiologic studies, CT scan, and as a result, I will discharge patient. Counseling: I had a detailed discussion with the patient and/or guardian regarding: the historical points, exam findings, and any diagnostic results supporting the discharge/admit diagnosis, lab results, radiology results, the need for outpatient follow up, to return to the emergency department if symptoms worsen or persist or if there are any questions or concerns that arise at home. Response to treatment: the patient's symptoms have mildly improved after treatment, and as a result, I will discharge patient. Special discussion: Based on the patient's Hx, exam, and Dx evaluation, there is no indication for emergent surgery or inpatient Tx. It is understood by the patient/guardian that if the Sx's persist or worsen they need to return immediately for re-evaluation. I discussed with the patient/guardian in detail that at this point there is no indication for admission to the hospital. It is understood, however, that if the symptoms persist or worsen the patient needs to return immediately for re-evaluation. 05/02 12:01 Order name: Basic Metabolic Panel; Complete Time: 12:59 rn 05/02 12:01 Order name: CBC with Diff; Complete Time: 12:55 rn 05/02 12:01 Order name: Hepatic Function; Complete Time: 12:59 rn 05/02 12:01 Order name: Lipase; Complete Time: 12:59 rn 05/02 12:01 Order name: AMMONIA; Complete Time: 12:55 rn 05/02 12:17 Order name: CT Abd/Pelvis - Without Contrast; Complete Time: 12:59 rn 05/02 12:01 Order name: IV Saline Lock; Complete Time: 12:29 rn 05/02 12:01 Order name: Labs collected and sent; Complete Time: 12:29 rn Administered Medications: 13:11 Drug: NS 0.9% 250 ml Route: IV; Rate: bolus; Site: right forearm; jr10 13:51 Follow up: Response: No adverse reaction; IV Status: Completed infusion jr10 Disposition: 05/02/20 13:55 Discharged to Home. Impression: Dehydration, Diarrhea, unspecified. - Condition is Stable. - Discharge Instructions: Dehydration, Adult, Diarrhea, Adult. - Medication Reconciliation Form, Thank You Letter, Antibiotic Education, Prescription Opioid Use form. - Follow up: Private Physician; When: As needed; Reason: Recheck today's complaints, Re-evaluation by your physician. - Problem is new. - Symptoms have improved. Signatures: Dispatcher [employer] EDWA Katlyn Lam, CUFF SETTER OVERLOCK-C CUFF SETTER OVERLOCK-Csnw Gela Samson RN RN iw Manuel Montgomery MD MD rn Calderon, Audri, RN RN aa5 Leora Phoenix, RN RN jr10 Corrections: (The following items were deleted from the chart) 14:49 13:55 05/02/2020 13:55 Discharged to Home. Impression: Dehydration; Diarrhea, iw unspecified. Condition is Stable. Forms are Medication Reconciliation Form, Thank You Letter, Antibiotic Education, Prescription Opioid Use. Follow up: Private Physician; When: As needed; Reason: Recheck today's complaints, Re-evaluation by your physician. Problem is new. Symptoms have improved. rn
--- NOTE | 2020-05-02 13:56 | ER ---
Nurse's Notes [facility] Name: Salvatore Goldman Age: 65 yrs Sex: Male : 1955 Arrival Date: 05/02/2020 Time: 10:58 Bed 14 Private MD: Diagnosis: Dehydration;Diarrhea, unspecified Presentation: 05/02 11:30 Chief complaint: Patient states: "I've been so weak over the last 4 days". Pt also aa5 reports diarrhea x 2 weeks ago. Pt reports he was tested for COVID-19 and got negative results on 04/28/20. Pt reports productive cough and SOB on exertion. 11:30 Coronavirus screen: The client reports previous COVID testing was negative. Ebola aa5 Screen: Patient negative for fever greater than or equal to 101.5 degrees Fahrenheit, and additional compatible Ebola Virus Disease symptoms. 11:30 Method Of Arrival: Wheelchair aa5 11:30 Initial Sepsis Screen: Does the patient meet any 2 criteria? No. Patient's initial aa5 sepsis screen is negative. Does the patient have a suspected source of infection? No. Patient's initial sepsis screen is negative. Risk Assessment: Do you want to hurt yourself or someone else? Patient reports no desire to harm self or others. 11:30 Onset of symptoms was April 2020. aa5 11:30 Acuity: NARDA 2 aa5 Historical: - Allergies: 11:32 No Known Allergies; aa5 - PMHx: 11:32 Cirrhosis; Diabetes - NIDDM; Dialysis; heart valve; Hepatitis; HIV; Hyperlipidemia; aa5 Karposi Sarcoma (left leg); kidney failure; L arm HD access; - PSHx: 11:32 left forearm dialysis fistula; partial lobectomy right; CABG; heart valve replacement; aa5 - Immunization history:: Adult Immunizations unknown. - Social history:: Smoking status: Patient denies any tobacco usage or history of. - Family history:: not pertinent. - Hospitalizations: : No recent hospitalization is reported. Screenin:30 Abuse screen: Denies threats or abuse. Denies injuries from another. Nutritional jr10 screening: No deficits noted. Tuberculosis screening: No symptoms or risk factors identified. Fall Risk Fall in past 12 months (25 points). No secondary diagnosis (0 pts). IV access (20 points). Ambulatory Aid- Crutches/Cane/Walker (15 pts). Gait- Weak (10 pts.). Mental Status- Oriented to own ability (0 pts). Assessment: 12:30 General: Appears in no apparent distress. Behavior is calm, cooperative, appropriate jr10 for age. Pain: Complains of pain in back. Neuro: No deficits noted. Level of Consciousness is awake, alert, obeys commands, Oriented to person, place, time, situation, Appropriate for age Speech is normal, Reports weakness since x1 week generalized. Cardiovascular: No deficits noted. Reports shortness of breath, Denies chest pain, Capillary refill < 3 seconds Patient's skin is warm and dry. Rhythm is regular Dialysis shunt: in the dorsal aspect of left forearm, with palpable thrill, with auscultated bruit, with no erythema, with no edema, no bleeding noted. Respiratory: Reports shortness of breath on exertion cough that is productive, since last saturday Airway is patent Respiratory effort is even, unlabored, Respiratory pattern is regular, symmetrical, Breath sounds are clear bilaterally. the patient has mild shortness of breath. GI: Abdomen is non-distended, Reports diarrhea, Patient currently denies nausea, vomiting. : No deficits noted. No signs and/or symptoms were reported regarding the genitourinary system. Reports pt is HD , , Sat; reports receiving dialysis on Saturday and was able to complete session. EENT: No deficits noted. No signs and/or symptoms were reported regarding the EENT system. Derm: No deficits noted. No signs and/or symptoms reported regarding the dermatologic system. Musculoskeletal: Circulation, motion, and sensation intact. Range of motion: intact in all extremities, Reports weakness in generalized. 13:09 Reassessment: Patient and/or family updated on plan of care and expected duration. Pain jr10 level reassessed. Patient is alert, oriented x 3, equal unlabored respirations, skin warm/dry/pink. pt sitting up in bed, appears in NAD, provided with sandwich so pt can take at home BP meds with verbal order via Dr Montgomery. Will monitor BP. Vital Signs: 11:30 BP 180 / 102; Pulse 92; Resp 16 S; Temp 98.5(O); Pulse Ox 97% on R/A; aa5 12:48 BP 199 / 99; Pulse 64; Resp 20; Pulse Ox 99% on R/A; jr10 13:10 BP 163 / 110; Pulse 100; Resp 20; Pulse Ox 97% on R/A; Pain 0/10; jr10 14:30 BP 164 / 97; Pulse 88; Resp 20; Temp 98.5; Pulse Ox 99% on R/A; jr10 ED Course: 10:58 Patient arrived in ED. as 11:30 Arm band placed on. aa5 11:45 Triage completed. aa5 11:59 Manuel Montgomery MD is Attending Physician. rn 12:11 Leora Phoenix, RN is Primary Nurse. jr10 12:30 Patient has correct armband on for positive identification. Placed in gown. Bed in low jr10 position. Call light in reach. Side rails up X2. quality assurance monitor chassis on. Pulse ox on. NIBP on. 12:30 No provider procedures requiring assistance completed. Inserted saline lock: 20 gauge jr10 in right forearm, using aseptic technique. ,using aseptic technique. posterior Blood collected. IV is patent, is intact, with good blood return, Flushed. 12:44 CT Abd/Pelvis - Without Contrast In Process Unspecified. EDMS 14:31 IV discontinued, intact, bleeding controlled, No redness/swelling at site. Pressure jr10 dressing applied. Administered Medications: 13:11 Drug: NS 0.9% 250 ml Route: IV; Rate: bolus; Site: right forearm; jr10 13:51 Follow up: Response: No adverse reaction; IV Status: Completed infusion jr10 Outcome: 13:55 Discharge ordered by MD. rn 14:31 Discharged to home via wheelchair. jr10 14:31 Condition: improved 14:31 Discharge instructions given to patient, Instructed on discharge instructions, follow up and referral plans. Demonstrated understanding of instructions, follow-up care. 14:49 Patient left the ED. iw Signatures: Dispatcher [employer] EDMS Angely Merchant Irene, RN RN iw Manuel Montgomery MD MD rn Calderon, Audri, RN RN aa5 Leora Phoenix, RN RN jr10 Corrections: (The following items were deleted from the chart) 11:45 11:30 Chief complaint: Patient states: "I've been so weak over the last 4 days". Pt aa5 also reports diarrhea x 2 weeks ago. Pt reports he was tested for COVID-19 and got negative results on Saturday. aa5 11:47 11:30 Acuity: NARDA 3 aa5 aa5
== END 2020-05-02 14:49 | disposition home or self-care (01) ==
LOC: ER 10:54
DX: E86.0 Dehydration (principal); E11.22 Type 2 diabetes mellitus with diabetic chronic kidney disease; N18.6 End stage renal disease; B20 Human immunodeficiency virus [HIV] disease; C46.0 Kaposi's sarcoma of skin; Z99.2 Dependence on renal dialysis; Z95.1 Presence of aortocoronary bypass graft; Z95.4 Presence of other heart-valve replacement
CPT/HCPCS: 85025; 80048; 36415; 82140; 80076; 83690; 74176; J7050; 96365; 99284

== ENCOUNTER 2020-07-15 02:03 | Observation (INO) | payer OTHER ==
--- OUTSIDE RECORDS SUMMARY | 2020-07-15 02:10 | XMS REPORT | Clinical Summary ---
:1955 Author Organization [facility] Address [address] [place] [address] Care Team Providers Name Role Phone Asked, No Pcp Primary Care Provider Unavailable Allergies No Known Active Allergies Medications Medication Sig Dispensed Refills Start End Date Status Date raltegravir Take 400 mg by 0 Act samreen (ISENTRESS) 400 mg mouth 2 (two) tablet times a day. traMADol (ULTRAM) Take 50 mg by 0 Active 50 mg mouth every 6 tabletIndications: (six) hours as acute pain needed for moderate pain .acute pain. ergocalciferol Take 50,000 0 Act samreen (VITAMIN D2) Units by mouth 50,000 unit once a week. capsule pantoprazole Take 40 mg by 0 Act samreen (PROTONIX) 40 MG mouth daily. EC tablet warfarin Take 10 mg by 0 Active (COUMADIN) 10 MG mouth daily. tablet Take 105mg on Saturday, , and Saturday and 1 tablet on all other days lopinavir-ritonavi Take 2 tablets 0 Active r (KALETRA) 200-50 by mouth 2 (two) mg per tablet times a day. prednisoLONE 1 drop 4 (four) 0 A ctive sodium phosphate 1 times a day. % ophthalmic solution lamiVUDine Take by mouth 2 0 Act samreen (EPIVIR) 10 mg/mL (two) times a solution day. dapsone 100 MG Take 1 tablet 0 07/29/20 A ctive tablet (100 mg total) 0 20 by mouth daily for 30 days. docusate sodium Take 1 capsule 60 capsule 0 07/28/20 Active (COLACE) 100 MG (100 mg total) 0 20 capsule by mouth 2 (two) times a day for 30 days. epoetin jennifer-epbx Infuse 2 mL 24 mL 0 07/29/20 Active (RETACRIT) 4,000 (8,000 Units 0 20 unit/mL solution total) into a injection venous catheter 3 (three) times a week for 30 days. gabapentin Take 1 capsule 30 capsule 0 07/28/20 Act samreen (NEURONTIN) 300 mg (300 mg total) 0 20 capsule by mouth nightly for 30 days. ipratropium-albute Take 3 mL by 0 Active roL (DUO-NEB) nebulization 2 0 0.5-2.5 mg/3 mL (two) times a nebulizer day. NIFEdipine XL Take 1 tablet 30 tablet 0 07/29/20 Ac tive (PROCARDIA XL) 30 (30 mg total) by 0 20 MG 24 hr tablet mouth daily for 30 days. polyethylene Take 17 g by 60 packet 0 07/28/20 Acti ve glycol (MIRALAX) mouth 2 (two) 0 20 17 gram packet times a day for 30 days. sennosides-docusat Take 1 tablet by 60 tablet 0 07/04 Active e sodium mouth 2 (two) 0 20 (SENOKOT-S) 8.6-50 times a day for mg per tablet 30 days. simethicone Chew 1 tablet 0 07/28/20 Acti ve (MYLICON) 80 MG (80 mg total) 0 20 chewable tablet every 6 (six) hours as needed for flatulence for up to 30 days. metFORMIN Take 0.5 tablets 30 tablet 0 07/28/20 Act samreen (GLUCOPHAGE) 1,000 (500 mg total) 0 20 mg tablet by mouth 2 (two) times a day with meals for 30 days. metFORMIN Take 1,000 mg by 0 06/28/20 Dis continued (GLUCOPHAGE) 1,000 mouth 2 (two) 20 (Reorder) mg tablet times a day with meals. carvedilol (COREG) Take 12.5 mg by 0 06/28 Discontinued 12.5 MG tablet mouth 2 (two) 20 ( Stop Taking at times a day with Dis charge) meals. sulfamethoxazole-t Take 1 tablet by 0 06/03 03/21 Discontinued rimethoprim mouth 2 (two) 20 (Sto p Taking at (BACTRIM DS) times a day. Disc harge) 800-160 mg per tablet codeine-guaifenesi Take 5 mL by 0 06/28/20 Discontinued n (GUAIFENESIN AC) mouth 3 (three) 20 (Stop Taking at 10-100 mg/5 mL times a day as Discharge) liquidIndications: needed for cough acute pain .acute pain. clotrimazole Apply topically 0 06/28/20 D iscontinued (LOTRIMIN) 1 % 2 (two) times a 20 (Stop Taking at cream day. Discharge) oseltamivir 30 mg 6 capsule 0 06/28/20 Disconti nued (TAMIFLU) 30 MG immediately 0 20 (S top Taking at capsule before and 30 mg Dis charge) after dialysis. 3 dialysis days. ondansetron ODT Take 1 tablet (4 15 tablet 0 0 (ZOFRAN-ODT) 4 MG mg total) by 0 20 disintegrating mouth every 8 tablet (eight) hours as needed for nausea or vomiting for up to 5 days. levoFLOXacin Take 1 tablet 0 07/05/20 Exp ired (LEVAQUIN) 250 MG (250 mg total) 0 20 tablet by mouth every other day for 5 days. Active Problems Problem Noted Date Respiratory failure, post-operative 06/06/2020 Atelectasis, right 06/06/2020 S/P thoracotomy (Left) 06/03/2020 Asymptomatic HIV infection 06/03/2020 Right ventricular dysfunction 06/03/2020 Nonrheumatic tricuspid valve regurgitation 06/03/2020 ESRD (end stage renal disease) 06/03/2020 S/P MVR (mitral valve replacement/ Mechanical) 020 Current use of anticoagulant therapy 06/03/2020 Shortness of breath 05/09/2020 Empyema 05/09/2020 Resolved Problems Problem Noted Date Resolved Date Postoperative hypotension 06/03/2020 06/06/2020 Encounters Date Type Specialty Care Team Description 06/29/2020 Orders Only General Internal [facility] LAURYN Soriano 06/21/2020 Telephone Cardiovascular Ada Herrera RN 06/17/2020 Anesthesia Event Cardiothoracic Bety, Surgery MD Yao Calloway Stephanie Jo, FILBERT GROWER 06/17/2020 Surgery Cardiothoracic Shanita Miller MD REVISION OF LEFT Surgery UPPER EXTREMITY ARTERIOVENOUS G RAFT WITH FISTULOGRA M 06/14/2020 Anesthesia Event Vascular Surgery Adriel Centeno, FILBERT GROWER 06/10/2020 Orders Only Intensive Care Darrell Murray PA 06/02/2020 Surgery Cardiothoracic Uri Nicole MD LEFT ROBO TIC Surgery ASSISTED THORACOSCOPIC T OTAL LEFT LUNG DECORTICATION, AND CRYOABLATION TO INTERCOSTAL NER VES 06/02/2020 Anesthesia Event Cardiothoracic Julieta Sevilla Surgery MD Shelton Patel Ridele E 06/01/2020 Anesthesia Event Procedural Cardiology Glory Zaragoza MD Lauritano, Angela Campobasso 05/09/2020 [facility] General Internal Megan Mcmahon s of breath (Primary Dx); - Encounter Medicine MD Angela Pneumonia of both lower lobes due to inf ectious organism (HCC); 06/28/2020 Joseph Rivera Hyperkalemia ; MD Noe ESRD (end stage renal disease) on dialys is (HCC); Juju Boland MD Pleural effusio n, bilateral; Empyema ([facility]); Preop pulmonary /respiratory exam; Atelectasis ; Pleural effusio n, not elsewhere classified; ESRD (end stage renal disease) (HCC); S/P thoracotomy (Left) 12/04/2019 Travel 11/11/2019 Travel 09/12/2019 Emergency Emergency Medicine Ty Nieves (Primary Dx); MD Sushant Viral syndrome after 07/15/2019 Immunizations Name Administration Dates Next Due FLUCELVAX QUAD PF 05/24/2020 Surgical History Surgery Date Site/Laterality Comments CARDIAC SURGERY LUNG SURGERY ROBOTIC ASSISTED 06/02/2020 Left Procedure: LEFT ROBOTIC THORACOSCOPIC LUNG ASSISTED THOR ACOSCOPIC TOTAL DECORTICATION LEFT LUNG DECORT ICATION, AND CRYOABLATION TO INTERCOSTAL NERVES; Surgeon : Uri Nicole MD; Locati on: [facility]; Serv ice: Thoracic; Later ality: Left; BRONCHOSCOPY 06/02/2020 N/A Procedure: FLEXI BLE BRONCHOSCOPY; S urgeon: Uri Nicole MD ; Location: [facility]; Service: Thoracic; Later ality: N/A; REVISION, ARTERIOVENOUS 06/17/2020 Arm Upper/Left Procedur e: REVISION OF LEFT GRAFT, WITH ANGIOGRAPHY UPPER EX TREMITY ARTERIOVENOUS GRAFT WITH FISTU LOGRAM; Surgeon: Abby Miller MD; Location: [facility]; Service: Vascula r; Laterality: Left ; Medical History Medical History Date Comments Renal disorder Diabetes mellitus (HCC) HIV (human immunodeficiency virus infection) (HCC) Liver cirrhosis (HCC) Hypertension Coronary artery disease Cancer (HCC) Blindness Social History Tobacco Use Types Packs/Day Years [...] Assigned at Date Recorded Not on file Last Filed Vital Signs Vital Sign Reading Time Taken Comments Blood Pressure 123/73 06/28/2020 7:35 PM CDT Pulse 104 06/28/2020 8:55 PM CDT Temperature 36.4 C (97.6 F) 06/28/2020 7:35 PM CDT Respiratory Rate 18 06/28/2020 8:55 PM CDT Oxygen Saturation 94% 06/28/2020 8:43 PM CDT Inhaled Oxygen Concentration - - Weight 59.8 kg (131 lb 12.8 oz) 06/28/2020 3:41 AM CDT Height 170.2 cm (5' 7") 06/02/2020 12:50 PM CDT Body Mass Index 20.64 06/02/2020 12:50 PM CDT Plan of Treatment Date Type Specialty Care Team Description 08/01/2020 Office Visit Cardiothoracic Surgery Uri Nicole MD [address] [facility] [address] [place], [place] [address] [phone] Health Maintenance Due Date Last Done Comments DIABETIC FOOT EXAM 04/24/1967 COLONOSCOPY SCREENING 04/24/2007 SHINGLES VACCINES (#1) 04/24/2007 DIABETES: RETINAL EYE EXAM 12/02/2018 12/02/2017, 8 INFLUENZA VACCINE Completed 05/24/2020, 08/23/2017 Procedures Procedure Name Priority Date/Time Associated Comments Diagnosis POC GLUCOSE Routine 06/28/2020 6:17 Results for this PM CDT procedure are i n the results section. POC GLUCOSE Routine 06/28/2020 12:58 Results for this PM CDT procedure are i n the results section. POC GLUCOSE Routine 06/28/2020 8:06 Results for this AM CDT procedure are i n the results section. ESTIMATED GFR Routine 06/28/2020 3:08 Results fo r this AM CDT procedure are i n the results section. BASIC METABOLIC PANEL Routine 06/28/2020 3:08 Re sults for this AM CDT procedure are i n the results section. HC COMPLETE BLD COUNT Routine 06/28/2020 2:49 Re sults for this W/AUTO DIFF AM CDT procedure are i n the results section. PROTHROMBIN TIME WITH Routine 06/28/2020 2:49 Re sults for this INR AM CDT procedure are i n the results section. POC GLUCOSE Routine 06/27/2020 9:30 Results for this PM CDT procedure are i n the results section. POC GLUCOSE Routine 06/27/2020 6:38 Results for this PM CDT procedure are i n the results section. POTASSIUM LEVEL STAT 06/27/2020 3:44 Results for this PM CDT procedure are i n the results section. POC GLUCOSE Routine 06/27/2020 3:08 Results for this PM CDT procedure are i n the results section. CT CHEST WO CONTRAST Routine 06/27/2020 1:20 Res ults for this PM CDT procedure are i n the results section. HEMODIALYSIS Routine 06/27/2020 6:57 AM CDT SMEAR REVIEW Routine 06/27/2020 6:14 Results for this AM CDT procedure are i n the results section. ESTIMATED GFR Routine 06/27/2020 6:14 Results fo r this AM CDT procedure are i n the results section. BASIC METABOLIC PANEL Routine 06/27/2020 6:14 Re sults for this AM CDT procedure are i n the results section. HC COMPLETE BLD COUNT Routine 06/27/2020 6:14 Re sults for this W/AUTO DIFF AM CDT procedure are i n the results section. PROTHROMBIN TIME WITH Routine 06/27/2020 6:14 Re sults for this INR AM CDT procedure are i n the results section. COVID-19 QUALITATIVE PCR Routine 06/27/2020 6:00 Results for this AM CDT procedure are i n the results section. XR CHEST 1 VW PORTABLE Routine 06/26/2020 10:56 R esults for this PM CDT procedure are i n the results section. POC GLUCOSE Routine 06/26/2020 8:35 Results for this PM CDT procedure are i n the results section. POC GLUCOSE Routine 06/26/2020 5:33 Results for this PM CDT procedure are i n the results section. POC GLUCOSE Routine 06/26/2020 11:57 Results for this AM CDT procedure are i n the results section. POC GLUCOSE Routine 06/26/2020 7:19 Results for this AM CDT procedure are i n the results section. SMEAR REVIEW Routine 06/26/2020 6:20 Results for this AM CDT procedure are i n the results section. ESTIMATED GFR Routine 06/26/2020 6:20 Results fo r this AM CDT procedure are i n the results section. PHOSPHORUS LEVEL Routine 06/26/2020 6:20 Results for this AM CDT procedure are i n the results section. MAGNESIUM LEVEL Routine 06/26/2020 6:20 Results for this AM CDT procedure are i n the results section. BASIC METABOLIC PANEL Routine 06/26/2020 6:20 Re sults for this AM CDT procedure are i n the results section. HC COMPLETE BLD COUNT Routine 06/26/2020 6:20 Re sults for this W/AUTO DIFF AM CDT procedure are i n the results section. PARTIAL THROMBOPLASTIN Routine 06/26/2020 4:40 R esults for this TIME (PTT) AM CDT procedure are i n the results section. PROTHROMBIN TIME WITH Routine 06/26/2020 4:40 Re sults for this INR AM CDT procedure are i n the results section. POC GLUCOSE Routine 06/25/2020 9:11 Results for this PM CDT procedure are i n the results section. POC GLUCOSE Routine 06/25/2020 6:21 Results for this PM CDT procedure are i n the results section. POC GLUCOSE Routine 06/25/2020 12:04 Results for this PM CDT procedure are i n the results section. POC GLUCOSE Routine 06/25/2020 8:28 Results for this AM CDT procedure are i n the results section. SMEAR REVIEW Routine 06/25/2020 4:00 Results for this AM CDT procedure are i n the results section. HC COMPLETE BLD COUNT Routine 06/25/2020 4:00 Re sults for this W/AUTO DIFF AM CDT procedure are i n the results section. ESTIMATED GFR Routine 06/25/2020 4:00 Results fo r this AM CDT procedure are i n the results section. PROTHROMBIN TIME WITH Routine 06/25/2020 4:00 Re sults for this INR AM CDT procedure are i n the results section. PARTIAL THROMBOPLASTIN Routine 06/25/2020 4:00 R esults for this TIME (PTT) AM CDT procedure are i n the results section. BASIC METABOLIC PANEL Routine 06/25/2020 4:00 Re sults for this AM CDT procedure are i n the results section. POC GLUCOSE Routine 06/24/2020 9:01 Results for this PM CDT procedure are i n the results section. TRANSFUSE RED BLOOD Routine 06/24/2020 4:26 CELLS PM CDT POC GLUCOSE Routine 06/24/2020 11:46 Results for this AM CDT procedure are i n the results section. PREPARE RBC Routine 06/24/2020 10:30 Results for this AM CDT procedure are i n the results section. TYPE AND SCREEN Routine 06/24/2020 10:30 Results for this AM CDT procedure are i n the results section. HEMODIALYSIS Routine 06/24/2020 8:17 AM CDT POC GLUCOSE Routine 06/24/2020 7:40 Results for this AM CDT procedure are i n the results section. ESTIMATED GFR Routine 06/24/2020 3:07 Results fo r this AM CDT procedure are i n the results section. PHOSPHORUS LEVEL Routine 06/24/2020 3:07 Results for this AM CDT procedure are i n the results section. BASIC METABOLIC PANEL Routine 06/24/2020 3:07 Re sults for this AM CDT procedure are i n the results section. PARTIAL THROMBOPLASTIN Routine 06/24/2020 2:45 R esults for this TIME (PTT) AM CDT procedure are i n the results section. CBC HEMOGRAM Routine 06/24/2020 2:45 Results for this AM CDT procedure are i n the results section. PARATHYROID HORMONE Routine 06/24/2020 2:45 Resu lts for this AM CDT procedure are i n the results section. PROTHROMBIN TIME WITH Routine 06/24/2020 2:45 Re sults for this INR AM CDT procedure are i n the results section. POC GLUCOSE Routine 06/23/2020 9:07 Results for this PM CDT procedure are i n the results section. PARTIAL THROMBOPLASTIN Timed 06/23/2020 8:05 R esults for this TIME (PTT) PM CDT procedure are i n the results section. XR CHEST 1 VW PORTABLE Routine 06/23/2020 6:23 R esults for this PM CDT procedure are i n the results section. POC GLUCOSE Routine 06/23/2020 6:02 Results for this PM CDT procedure are i n the results section. PARTIAL THROMBOPLASTIN STAT 06/23/2020 1:00 R esults for this TIME (PTT) PM CDT procedure are i n the results section. POC GLUCOSE Routine 06/23/2020 12:38 Results for this PM CDT procedure are i n the results section. POC GLUCOSE Routine 06/23/2020 8:24 Results for this AM CDT procedure are i n the results section. SMEAR REVIEW Routine 06/23/2020 4:00 Results for this AM CDT procedure are i n the results section. ESTIMATED GFR Routine 06/23/2020 4:00 Results fo r this AM CDT procedure are i n the results section. PARTIAL THROMBOPLASTIN Routine 06/23/2020 4:00 R esults for this TIME (PTT) AM CDT procedure are i n the results section. PROTHROMBIN TIME WITH Routine 06/23/2020 4:00 Re sults for this INR AM CDT procedure are i n the results section. PHOSPHORUS LEVEL Routine 06/23/2020 4:00 Results for this AM CDT procedure are i n the results section. MAGNESIUM LEVEL Routine 06/23/2020 4:00 Results for this AM CDT procedure are i n the results section. HC COMPLETE BLD COUNT Routine 06/23/2020 4:00 Re sults for this W/AUTO DIFF AM CDT procedure are i n the results section. BASIC METABOLIC PANEL Routine 06/23/2020 4:00 Re sults for this AM CDT procedure are i n the results section. POC GLUCOSE Routine 06/22/2020 9:35 Results for this PM CDT procedure are i n the results section. POC GLUCOSE Routine 06/22/2020 2:01 Results for this PM CDT procedure are i n the results section. POC GLUCOSE Routine 06/22/2020 12:21 Results for this PM CDT procedure are i n the results section. PARTIAL THROMBOPLASTIN Timed 06/22/2020 10:16 R esults for this TIME (PTT) AM CDT procedure are i n the results section. POC GLUCOSE Routine 06/22/2020 8:36 Results for this AM CDT procedure are i n the results section. HEMODIALYSIS Routine 06/22/2020 7:58 AM CDT SMEAR REVIEW Routine 06/22/2020 4:40 Results for this AM CDT procedure are i n the results section. ESTIMATED GFR Routine 06/22/2020 4:40 Results fo r this AM CDT procedure are i n the results section. PROTHROMBIN TIME WITH Routine 06/22/2020 4:40 Re sults for this INR AM CDT procedure are i n the results section. PARTIAL THROMBOPLASTIN Routine 06/22/2020 4:40 R esults for this TIME (PTT) AM CDT procedure are i n the results section. PHOSPHORUS LEVEL Routine 06/22/2020 4:40 Results for this AM CDT procedure are i n the results section. MAGNESIUM LEVEL Routine 06/22/2020 4:40 Results for this AM CDT procedure are i n the results section. HC COMPLETE BLD COUNT Routine 06/22/2020 4:40 Re sults for this W/AUTO DIFF AM CDT procedure are i n the results section. BASIC METABOLIC PANEL Routine 06/22/2020 4:40 Re sults for this AM CDT procedure are i n the results section. POC GLUCOSE Routine 06/21/2020 8:49 Results for this PM CDT procedure are i n the results section. POC GLUCOSE Routine 06/21/2020 5:03 Results for this PM CDT procedure are i n the results section. SPIROMETRY, DIFFUSION Routine 06/21/2020 3:26 Shortness of Re sults for this PM CDT breath procedure are i n the results section. POC GLUCOSE Routine 06/21/2020 12:39 Results for this PM CDT procedure are i n the results section. POC GLUCOSE Routine 06/21/2020 7:42 Results for this AM CDT procedure are i n the results section. MANUAL DIFFERENTIAL Routine 06/21/2020 4:15 Resu lts for this AM CDT procedure are i n the results section. ESTIMATED GFR Routine 06/21/2020 4:15 Results fo r this AM CDT procedure are i n the results section. PHOSPHORUS LEVEL Routine 06/21/2020 4:15 Results for this AM CDT procedure are i n the results section. MAGNESIUM LEVEL Routine 06/21/2020 4:15 Results for this AM CDT procedure are i n the results section. CBC WITH PLATELET AND Routine 06/21/2020 4:15 Re sults for this DIFFERENTIAL AM CDT procedure are i n the results section. BASIC METABOLIC PANEL Routine 06/21/2020 4:15 Re sults for this AM CDT procedure are i n the results section. PARTIAL THROMBOPLASTIN Routine 06/21/2020 4:15 R esults for this TIME (PTT) AM CDT procedure are i n the results section. PROTHROMBIN TIME WITH Routine 06/21/2020 4:15 Re sults for this INR AM CDT procedure are i n the results section. POC GLUCOSE Routine 06/20/2020 8:39 Results for this PM CDT procedure are i n the results section. POC GLUCOSE Routine 06/20/2020 1:48 Results for this PM CDT procedure are i n the results section. POC GLUCOSE Routine 06/20/2020 12:12 Results for this PM CDT procedure are i n the results section. HEMODIALYSIS Routine 06/20/2020 8:02 AM CDT POC GLUCOSE Routine 06/20/2020 7:45 Results for this AM CDT procedure are i n the results section. ESTIMATED GFR Routine 06/20/2020 4:40 Results fo r this AM CDT procedure are i n the results section. BASIC METABOLIC PANEL Routine 06/20/2020 4:40 Re sults for this AM CDT procedure are i n the results section. CBC HEMOGRAM Routine 06/20/2020 4:40 Results for this AM CDT procedure are i n the results section. PARTIAL THROMBOPLASTIN Routine 06/20/2020 4:40 R esults for this TIME (PTT) AM CDT procedure are i n the results section. PROTHROMBIN TIME WITH Routine 06/20/2020 4:40 Re sults for this INR AM CDT procedure are i n the results section. POC GLUCOSE Routine 06/20/2020 4:37 Results for this AM CDT procedure are i n the results section. POC GLUCOSE Routine 06/19/2020 8:34 Results for this PM CDT procedure are i n the results section. POC GLUCOSE Routine 06/19/2020 5:51 Results for this PM CDT procedure are i n the results section. POC GLUCOSE Routine 06/19/2020 11:55 Results for this AM CDT procedure are i n the results section. POC GLUCOSE Routine 06/19/2020 7:42 Results for this AM CDT procedure are i n the results section. POC GLUCOSE Routine 06/19/2020 5:29 Results for this AM CDT procedure are i n the results section. SMEAR REVIEW Routine 06/19/2020 5:20 Results for this AM CDT procedure are i n the results section. PARTIAL THROMBOPLASTIN Routine 06/19/2020 5:20 R esults for this TIME (PTT) AM CDT procedure are i n the results section. PROTHROMBIN TIME WITH Routine 06/19/2020 5:20 Re sults for this INR AM CDT procedure are i n the results section. HC COMPLETE BLD COUNT Routine 06/19/2020 5:20 Re sults for this W/AUTO DIFF AM CDT procedure are i n the results section. ESTIMATED GFR Routine 06/19/2020 4:00 Results fo r this AM CDT procedure are i n the results section. PHOSPHORUS LEVEL Routine 06/19/2020 4:00 Results for this AM CDT procedure are i n the results section. MAGNESIUM LEVEL Routine 06/19/2020 4:00 Results for this AM CDT procedure are i n the results section. BASIC METABOLIC PANEL Routine 06/19/2020 4:00 Re sults for this AM CDT procedure are i n the results section. POC GLUCOSE Routine 06/18/2020 9:20 Results for this PM CDT procedure are i n the results section. POC GLUCOSE Routine 06/18/2020 11:53 Results for this AM CDT procedure are i n the results section. HEMODIALYSIS Routine 06/18/2020 10:20 AM CDT PROTHROMBIN TIME WITH Routine 06/18/2020 9:56 Re sults for this INR AM CDT procedure are i n the results section. POC GLUCOSE Routine 06/18/2020 7:48 Results for this AM CDT procedure are i n the results section. SMEAR REVIEW Routine 06/18/2020 5:20 Results for this AM CDT procedure are i n the results section. PARTIAL THROMBOPLASTIN Routine 06/18/2020 5:20 R esults for this TIME (PTT) AM CDT procedure are i n the results section. HC COMPLETE BLD COUNT Routine 06/18/2020 5:20 Re sults for this W/AUTO DIFF AM CDT procedure are i n the results section. ESTIMATED GFR Routine 06/18/2020 4:00 Results fo r this AM CDT procedure are i n the results section. PHOSPHORUS LEVEL Routine 06/18/2020 4:00 Results for this AM CDT procedure are i n the results section. MAGNESIUM LEVEL Routine 06/18/2020 4:00 Results for this AM CDT procedure are i n the results section. BASIC METABOLIC PANEL Routine 06/18/2020 4:00 Re sults for this AM CDT procedure are i n the results section. POC GLUCOSE Routine 06/17/2020 11:28 Results for this PM CDT procedure are i n the results section. POC GLUCOSE Routine 06/17/2020 1:35 Results for this PM CDT procedure are i n the results section. POC GLUCOSE Routine 06/17/2020 12:47 Results for this PM CDT procedure are i n the results section. MD AN PERIPHERAL BLOCK Routine 06/17/2020 10:15 R esults for this PROCEDURE FOR PAIN AM CDT procedure are in the results section. POC GLUCOSE Routine 06/17/2020 7:25 Results for this AM CDT procedure are i n the results section. SMEAR REVIEW Routine 06/17/2020 4:38 Results for this AM CDT procedure are i n the results section. PARTIAL THROMBOPLASTIN Routine 06/17/2020 4:38 R esults for this TIME (PTT) AM CDT procedure are i n the results section. CBC WITH PLATELET AND Routine 06/17/2020 4:38 Re sults for this DIFFERENTIAL AM CDT procedure are i n the results section. ESTIMATED GFR Routine 06/17/2020 4:00 Results fo r this AM CDT procedure are i n the results section. PHOSPHORUS LEVEL Routine 06/17/2020 4:00 Results for this AM CDT procedure are i n the results section. MAGNESIUM LEVEL Routine 06/17/2020 4:00 Results for this AM CDT procedure are i n the results section. BASIC METABOLIC PANEL Routine 06/17/2020 4:00 Re sults for this AM CDT procedure are i n the results section. PARTIAL THROMBOPLASTIN Routine 06/16/2020 10:30 R esults for this TIME (PTT) PM CDT procedure are i n the results section. POC GLUCOSE Routine 06/16/2020 9:49 Results for this PM CDT procedure are i n the results section. POC GLUCOSE Routine 06/16/2020 5:30 Results for this PM CDT procedure are i n the results section. XR ABDOMEN 1 VW STAT 06/16/2020 4:03 Results for this PM CDT procedure are i n the results section. PARTIAL THROMBOPLASTIN Timed 06/16/2020 3:30 R esults for this TIME (PTT) PM CDT procedure are i n the results section. POC GLUCOSE Routine 06/16/2020 11:52 Results for this AM CDT procedure are i n the results section. POC GLUCOSE Routine 06/16/2020 8:03 Results for this AM CDT procedure are i n the results section. PARTIAL THROMBOPLASTIN Routine 06/16/2020 8:00 R esults for this TIME (PTT) AM CDT procedure are i n the results section. SMEAR REVIEW Routine 06/16/2020 5:00 Results for this AM CDT procedure are i n the results section. ESTIMATED GFR Routine 06/16/2020 5:00 Results fo r this AM CDT procedure are i n the results section. PHOSPHORUS LEVEL Routine 06/16/2020 5:00 Results for this AM CDT procedure are i n the results section. MAGNESIUM LEVEL Routine 06/16/2020 5:00 Results for this AM CDT procedure are i n the results section. HC COMPLETE BLD COUNT Routine 06/16/2020 5:00 Re sults for this W/AUTO DIFF AM CDT procedure are i n the results section. BASIC METABOLIC PANEL Routine 06/16/2020 5:00 Re sults for this AM CDT procedure are i n the results section. PARTIAL THROMBOPLASTIN Routine 06/16/2020 12:30 R esults for this TIME (PTT) AM CDT procedure are i n the results section. POC GLUCOSE Routine 06/15/2020 9:13 Results for this PM CDT procedure are i n the results section. PARTIAL THROMBOPLASTIN Timed 06/15/2020 6:15 R esults for this TIME (PTT) PM CDT procedure are i n the results section. POC GLUCOSE Routine 06/15/2020 5:35 Results for this PM CDT procedure are i n the results section. CT CHEST WO CONTRAST STAT 06/15/2020 11:59 Res ults for this AM CDT procedure are i n the results section. PARTIAL THROMBOPLASTIN Routine 06/15/2020 11:30 R esults for this TIME (PTT) AM CDT procedure are i n the results section. POC GLUCOSE Routine 06/15/2020 8:00 Results for this AM CDT procedure are i n the results section. HEMODIALYSIS Routine 06/15/2020 6:53 AM CDT XR CHEST 1 VW PORTABLE Routine 06/15/2020 6:28 R esults for this AM CDT procedure are i n the results section. ESTIMATED GFR Routine 06/15/2020 2:39 Results fo r this AM CDT procedure are i n the results section. PHOSPHORUS LEVEL Routine 06/15/2020 2:39 Results for this AM CDT procedure are i n the results section. MAGNESIUM LEVEL Routine 06/15/2020 2:39 Results for this AM CDT procedure are i n the results section. BASIC METABOLIC PANEL Routine 06/15/2020 2:39 Re sults for this AM CDT procedure are i n the results section. SMEAR REVIEW Routine 06/15/2020 2:00 Results for this AM CDT procedure are i n the results section. PARTIAL THROMBOPLASTIN Routine 06/15/2020 2:00 R esults for this TIME (PTT) AM CDT procedure are i n the results section. PROTHROMBIN TIME WITH Routine 06/15/2020 2:00 Re sults for this INR AM CDT procedure are i n the results section. CBC WITH PLATELET AND Routine 06/15/2020 2:00 Re sults for this DIFFERENTIAL AM CDT procedure are i n the results section. POC GLUCOSE Routine 06/15/2020 1:41 Results for this AM CDT procedure are i n the results section. POC GLUCOSE Routine 06/14/2020 9:50 Results for this PM CDT procedure are i n the results section. TROPONIN Routine 06/14/2020 6:17 Results for this PM CDT procedure are i n the results section. CBC HEMOGRAM Routine 06/14/2020 6:17 Results for this PM CDT procedure are i n the results section. PARTIAL THROMBOPLASTIN STAT 06/14/2020 6:16 R esults for this TIME (PTT) PM CDT procedure are i n the results section. POC GLUCOSE Routine 06/14/2020 6:07 Results for this PM CDT procedure are i n the results section. PARTIAL THROMBOPLASTIN Timed 06/14/2020 3:45 R esults for this TIME (PTT) PM CDT procedure are i n the results section. ULTRAFILTRATION Routine 06/14/2020 12:36 PM CDT POC GLUCOSE Routine 06/14/2020 9:33 Results for this AM CDT procedure are i n the results section. XR CHEST 1 VW PORTABLE STAT 06/14/2020 8:12 R esults for this AM CDT procedure are i n the results section. POC GLUCOSE Routine 06/14/2020 4:52 Results for this AM CDT procedure are i n the results section. PREPARE RBC STAT 06/14/2020 4:30 AM CDT PREPARE RBC STAT 06/14/2020 4:30 AM CDT TYPE AND SCREEN STAT 06/14/2020 4:30 Results for this AM CDT procedure are i n the results section. SMEAR REVIEW Routine 06/14/2020 4:30 Results for this AM CDT procedure are i n the results section. PROTHROMBIN TIME WITH Routine 06/14/2020 4:30 Re sults for this INR AM CDT procedure are i n the results section. HC COMPLETE BLD COUNT Routine 06/14/2020 4:30 Re sults for this W/AUTO DIFF AM CDT procedure are i n the results section. PARTIAL THROMBOPLASTIN Routine 06/14/2020 4:30 R esults for this TIME (PTT) AM CDT procedure are i n the results section. ESTIMATED GFR Routine 06/14/2020 4:00 Results fo r this AM CDT procedure are i n the results section. PHOSPHORUS LEVEL Routine 06/14/2020 4:00 Results for this AM CDT procedure are i n the results section. MAGNESIUM LEVEL Routine 06/14/2020 4:00 Results for this AM CDT procedure are i n the results section. BASIC METABOLIC PANEL Routine 06/14/2020 4:00 Re sults for this AM CDT procedure are i n the results section. ECG 12-LEAD Routine 06/14/2020 3:46 Results for this AM CDT procedure are i n the results section. TROPONIN Timed 06/14/2020 2:00 Results for this AM CDT procedure are i n the results section. POC GLUCOSE Routine 06/14/2020 1:08 Results for this AM CDT procedure are i n the results section. ECG 12-LEAD Routine 06/13/2020 10:09 Results for this PM CDT procedure are i n the results section. POC GLUCOSE Routine 06/13/2020 9:50 Results for this PM CDT procedure are i n the results section. CT RENAL STONE PROTOCOL Routine 06/13/2020 9:14 Results for this PM CDT procedure are i n the results section. TROPONIN Timed 06/13/2020 8:00 Results for this PM CDT procedure are i n the results section. POC GLUCOSE Routine 06/13/2020 6:44 Results for this PM CDT procedure are i n the results section. PROTHROMBIN TIME WITH STAT 06/13/2020 2:51 Re sults for this INR PM CDT procedure are i n the results section. PARTIAL THROMBOPLASTIN STAT 06/13/2020 2:51 R esults for this TIME (PTT) PM CDT procedure are i n the results section. TROPONIN STAT 06/13/2020 2:51 Results for this PM CDT procedure are i n the results section. HC COMPLETE BLD COUNT STAT 06/13/2020 2:51 Re sults for this W/AUTO DIFF PM CDT procedure are i n the results section. ESTIMATED GFR STAT 06/13/2020 2:27 Results fo r this PM CDT procedure are i n the results section. PHOSPHORUS LEVEL STAT 06/13/2020 2:27 Results for this PM CDT procedure are i n the results section. MAGNESIUM LEVEL STAT 06/13/2020 2:27 Results for this PM CDT procedure are i n the results section. BASIC METABOLIC PANEL STAT 06/13/2020 2:27 Re sults for this PM CDT procedure are i n the results section. ECG 12-LEAD Routine 06/13/2020 2:18 Results for this PM CDT procedure are i n the results section. XR ABDOMEN 1 VW PORTABLE STAT 06/13/2020 2:00 Results for this PM CDT procedure are i n the results section. XR CHEST 1 VW PORTABLE STAT 06/13/2020 2:00 R esults for this PM CDT procedure are i n the results section. POC GLUCOSE Routine 06/13/2020 12:56 Results for this PM CDT procedure are i n the results section. HEMODIALYSIS Routine 06/13/2020 10:56 AM CDT POC GLUCOSE Routine 06/13/2020 8:44 Results for this AM CDT procedure are i n the results section. POC GLUCOSE Routine 06/13/2020 6:00 Results for this AM CDT procedure are i n the results section. PARTIAL THROMBOPLASTIN Routine 06/13/2020 4:40 R esults for this TIME (PTT) AM CDT procedure are i n the results section. ESTIMATED GFR Routine 06/13/2020 4:00 Results fo r this AM CDT procedure are i n the results section. BASIC METABOLIC PANEL Routine 06/13/2020 4:00 Re sults for this AM CDT procedure are i n the results section. POC GLUCOSE Routine 06/12/2020 9:25 Results for this PM CDT procedure are i n the results section. COVID-19 QUALITATIVE PCR Routine 06/12/2020 2:16 Results for this PM CDT procedure are i n the results section. POC GLUCOSE Routine 06/12/2020 11:33 Results for this AM CDT procedure are i n the results section. POC GLUCOSE Routine 06/12/2020 7:31 Results for this AM CDT procedure are i n the results section. PARTIAL THROMBOPLASTIN Routine 06/12/2020 5:00 R esults for this TIME (PTT) AM CDT procedure are i n the results section. PROTHROMBIN TIME WITH Routine 06/12/2020 5:00 Re sults for this INR AM CDT procedure are i n the results section. POC GLUCOSE Routine 06/11/2020 9:24 Results for this PM CDT procedure are i n the results section. POC GLUCOSE Routine 06/11/2020 5:10 Results for this PM CDT procedure are i n the results section. POC GLUCOSE Routine 06/11/2020 11:36 Results for this AM CDT procedure are i n the results section. XR CHEST 1 VW PORTABLE Routine 06/11/2020 9:04 R esults for this AM CDT procedure are i n the results section. POC GLUCOSE Routine 06/11/2020 7:35 Results for this AM CDT procedure are i n the results section. MANUAL DIFFERENTIAL Routine 06/11/2020 3:30 Resu lts for this AM CDT procedure are i n the results section. ESTIMATED GFR Routine 06/11/2020 3:30 Results fo r this AM CDT procedure are i n the results section. CBC WITH PLATELET AND Routine 06/11/2020 3:30 Re sults for this DIFFERENTIAL AM CDT procedure are i n the results section. BASIC METABOLIC PANEL Routine 06/11/2020 3:30 Re sults for this AM CDT procedure are i n the results section. PARTIAL THROMBOPLASTIN Routine 06/11/2020 3:30 R esults for this TIME (PTT) AM CDT procedure are i n the results section. PROTHROMBIN TIME WITH Routine 06/11/2020 3:30 Re sults for this INR AM CDT procedure are i n the results section. POC GLUCOSE Routine 06/10/2020 11:54 Results for this PM CDT procedure are i n the results section. POC GLUCOSE Routine 06/10/2020 5:33 Results for this PM CDT procedure are i n the results section. US DUPLEX HEMODIALYSIS STAT 06/10/2020 4:14 R esults for this AVG AVF ACCESS PM CDT procedure are in the results section. POC GLUCOSE Routine 06/10/2020 12:20 Results for this PM CDT procedure are i n the results section. HEMODIALYSIS Routine 06/10/2020 11:18 AM CDT POC GLUCOSE Routine 06/10/2020 8:22 Results for this AM CDT procedure are i n the results section. PARTIAL THROMBOPLASTIN Routine 06/10/2020 3:45 R esults for this TIME (PTT) AM CDT procedure are i n the results section. MANUAL DIFFERENTIAL Routine 06/10/2020 3:45 Resu lts for this AM CDT procedure are i n the results section. ESTIMATED GFR Routine 06/10/2020 3:45 Results fo r this AM CDT procedure are i n the results section. BASIC METABOLIC PANEL Routine 06/10/2020 3:45 Re sults for this AM CDT procedure are i n the results section. CBC WITH PLATELET AND Routine 06/10/2020 3:45 Re sults for this DIFFERENTIAL AM CDT procedure are i n the results section. FERRITIN LEVEL Routine 06/10/2020 3:45 Results f or this AM CDT procedure are i n the results section. TOTAL IRON BINDING Routine 06/10/2020 3:45 Resul ts for this CAPACITY AM CDT procedure are i n the results section. PROTHROMBIN TIME WITH Routine 06/10/2020 3:45 Re sults for this INR AM CDT procedure are i n the results section. POC GLUCOSE Routine 06/09/2020 9:34 Results for this PM CDT procedure are i n the results section. POC GLUCOSE Routine 06/09/2020 8:57 Results for this PM CDT procedure are i n the results section. POC GLUCOSE Routine 06/09/2020 5:51 Results for this PM CDT procedure are i n the results section. HEMOGLOBIN & HEMATOCRIT Routine 06/09/2020 2:54 Results for this PM CDT procedure are i n the results section. POC GLUCOSE Routine 06/09/2020 11:54 Results for this AM CDT procedure are i n the results section. FL MODIFIED BARIUM Routine 06/09/2020 11:39 Resul ts for this SWALLOW AM CDT procedure are i n the results section. XR CHEST 1 VW PORTABLE STAT 06/09/2020 11:05 R esults for this AM CDT procedure are i n the results section. PARTIAL THROMBOPLASTIN Timed 06/09/2020 7:35 R esults for this TIME (PTT) AM CDT procedure are i n the results section. POC GLUCOSE Routine 06/09/2020 7:33 Results for this AM CDT procedure are i n the results section. ECG 12-LEAD Routine 06/09/2020 4:12 Results for this AM CDT procedure are i n the results section. ECG 12-LEAD Routine 06/09/2020 3:46 AM CDT POC GLUCOSE Routine 06/09/2020 3:36 Results for this AM CDT procedure are i n the results section. XR CHEST 1 VW PORTABLE Routine 06/09/2020 3:12 R esults for this AM CDT procedure are i n the results section. ESTIMATED GFR Routine 06/09/2020 3:02 Results fo r this AM CDT procedure are i n the results section. IONIZED CALCIUM Routine 06/09/2020 3:02 Results for this AM CDT procedure are i n the results section. PHOSPHORUS LEVEL Routine 06/09/2020 3:02 Results for this AM CDT procedure are i n the results section. MAGNESIUM LEVEL Routine 06/09/2020 3:02 Results for this AM CDT procedure are i n the results section. BASIC METABOLIC PANEL Routine 06/09/2020 3:02 Re sults for this AM CDT procedure are i n the results section. MANUAL DIFFERENTIAL Routine 06/09/2020 2:42 Resu lts for this AM CDT procedure are i n the results section. PARTIAL THROMBOPLASTIN Routine 06/09/2020 2:42 R esults for this TIME (PTT) AM CDT procedure are i n the results section. CBC WITH PLATELET AND Routine 06/09/2020 2:42 Re sults for this DIFFERENTIAL AM CDT procedure are i n the results section. PROTHROMBIN TIME WITH Routine 06/09/2020 2:42 Re sults for this INR AM CDT procedure are i n the results section. POC GLUCOSE Routine 06/09/2020 12:37 Results for this AM CDT procedure are i n the results section. POC GLUCOSE Routine 06/08/2020 8:15 Results for this PM CDT procedure are i n the results section. PARTIAL THROMBOPLASTIN Routine 06/08/2020 6:50 R esults for this TIME (PTT) PM CDT procedure are i n the results section. POC GLUCOSE Routine 06/08/2020 3:33 Results for this PM CDT procedure are i n the results section. XR CHEST 1 VW PORTABLE STAT 06/08/2020 12:15 R esults for this PM CDT procedure are i n the results section. POC GLUCOSE Routine 06/08/2020 11:27 Results for this AM CDT procedure are i n the results section. HEPATITIS B SURFACE STAT 06/08/2020 10:47 Resu lts for this ANTIGEN AM CDT procedure are i n the results section. PARTIAL THROMBOPLASTIN Timed 06/08/2020 10:30 R esults for this TIME (PTT) AM CDT procedure are i n the results section. HEMODIALYSIS Routine 06/08/2020 9:58 AM CDT POC GLUCOSE Routine 06/08/2020 7:25 Results for this AM CDT procedure are i n the results section. XR CHEST 1 VW PORTABLE Routine 06/08/2020 3:49 R esults for this AM CDT procedure are i n the results section. POC GLUCOSE Routine 06/08/2020 3:31 Results for this AM CDT procedure are i n the results section. ESTIMATED GFR Routine 06/08/2020 2:42 Results fo r this AM CDT procedure are i n the results section. MAGNESIUM LEVEL Routine 06/08/2020 2:42 Results for this AM CDT procedure are i n the results section. BASIC METABOLIC PANEL Routine 06/08/2020 2:42 Re sults for this AM CDT procedure are i n the results section. PREPARE RBC Routine 06/08/2020 2:35 Results for this AM CDT procedure are i n the results section. TYPE AND SCREEN Routine 06/08/2020 2:35 Results for this AM CDT procedure are i n the results section. CBC HEMOGRAM Routine 06/08/2020 2:15 Results for this AM CDT procedure are i n the results section. PROTHROMBIN TIME WITH Routine 06/08/2020 2:15 Re sults for this INR AM CDT procedure are i n the results section. PARTIAL THROMBOPLASTIN Routine 06/08/2020 2:15 R esults for this TIME (PTT) AM CDT procedure are i n the results section. POC GLUCOSE Routine 06/07/2020 11:34 Results for this PM CDT procedure are i n the results section. POC GLUCOSE Routine 06/07/2020 7:39 Results for this PM CDT procedure are i n the results section. XR CHEST 1 VW PORTABLE Routine 06/07/2020 3:58 R esults for this PM CDT procedure are i n the results section. POC GLUCOSE Routine 06/07/2020 3:51 Results for this PM CDT procedure are i n the results section. PROTHROMBIN TIME WITH STAT 06/07/2020 12:25 Re sults for this INR PM CDT procedure are i n the results section. POC GLUCOSE Routine 06/07/2020 11:32 Results for this AM CDT procedure are i n the results section. POC GLUCOSE Routine 06/07/2020 7:24 Results for this AM CDT procedure are i n the results section. XR CHEST 1 VW PORTABLE Routine 06/07/2020 4:06 R esults for this AM CDT procedure are i n the results section. POC GLUCOSE Routine 06/07/2020 4:00 Results for this AM CDT procedure are i n the results section. ESTIMATED GFR Routine 06/07/2020 1:59 Results fo r this AM CDT procedure are i n the results section. MAGNESIUM LEVEL Routine 06/07/2020 1:59 Results for this AM CDT procedure are i n the results section. BASIC METABOLIC PANEL Routine 06/07/2020 1:59 Re sults for this AM CDT procedure are i n the results section. ARTERIAL BLOOD GAS Routine 06/07/2020 1:35 Resul ts for this AM CDT procedure are i n the results section. CBC HEMOGRAM Routine 06/07/2020 1:35 Results for this AM CDT procedure are i n the results section. PARTIAL THROMBOPLASTIN Routine 06/07/2020 1:35 R esults for this TIME (PTT) AM CDT procedure are i n the results section. POC GLUCOSE Routine 06/06/2020 11:25 Results for this PM CDT procedure are i n the results section. IONIZED CALCIUM Routine 06/06/2020 6:15 Results for this PM CDT procedure are i n the results section. PHOSPHORUS LEVEL Routine 06/06/2020 6:15 Results for this PM CDT procedure are i n the results section. POTASSIUM LEVEL Routine 06/06/2020 6:15 Results for this PM CDT procedure are i n the results section. MAGNESIUM LEVEL Routine 06/06/2020 6:15 Results for this PM CDT procedure are i n the results section. PARTIAL THROMBOPLASTIN Routine 06/06/2020 6:15 R esults for this TIME (PTT) PM CDT procedure are i n the results section. POC GLUCOSE Routine 06/06/2020 4:05 Results for this PM CDT procedure are i n the results section. BRONCHOSCOPY Routine 06/06/2020 1:42 Shortness of Results for this PM CDT breath procedure are in Pneumonia of both the result s lower lobes due to section. infectious organism XR CHEST 1 VW PORTABLE STAT 06/06/2020 1:33 R esults for this PM CDT procedure are i n the results section. FUNGUS CULTURE Routine 06/06/2020 12:30 Results f or this PM CDT procedure are i n the results section. AFB CULTURE Routine 06/06/2020 12:30 PM CDT POC GLUCOSE Routine 06/06/2020 11:58 Results for this AM CDT procedure are i n the results section. FUNGUS SMEAR Routine 06/06/2020 11:30 Results for this AM CDT procedure are i n the results section. AFB STAIN Routine 06/06/2020 11:30 Results for this AM CDT procedure are i n the results section. GRAM STAIN Routine 06/06/2020 11:30 Results for this AM CDT procedure are i n the results section. RESPIRATORY CULTURE Routine 06/06/2020 11:30 Resu lts for this AM CDT procedure are i n the results section. PARTIAL THROMBOPLASTIN Routine 06/06/2020 11:15 R esults for this TIME (PTT) AM CDT procedure are i n the results section. HEMODIALYSIS Routine 06/06/2020 8:30 AM CDT POC GLUCOSE Routine 06/06/2020 7:28 Results for this AM CDT procedure are i n the results section. XR CHEST 1 VW PORTABLE Routine 06/06/2020 5:09 R esults for this AM CDT procedure are i n the results section. PARTIAL THROMBOPLASTIN Routine 06/06/2020 5:00 R esults for this TIME (PTT) AM CDT procedure are i n the results section. POC GLUCOSE Routine 06/06/2020 3:52 Results for this AM CDT procedure are i n the results section. ARTERIAL BLOOD GAS Routine 06/06/2020 2:31 Resul ts for this AM CDT procedure are i n the results section. ESTIMATED GFR Routine 06/06/2020 1:26 Results fo r this AM CDT procedure are i n the results section. PHOSPHORUS LEVEL Routine 06/06/2020 1:26 Results for this AM CDT procedure are i n the results section. MAGNESIUM LEVEL Routine 06/06/2020 1:26 Results for this AM CDT procedure are i n the results section. BASIC METABOLIC PANEL Routine 06/06/2020 1:26 Re sults for this AM CDT procedure are i n the results section. IONIZED CALCIUM Routine 06/06/2020 1:26 Results for this AM CDT procedure are i n the results section. MANUAL DIFFERENTIAL Routine 06/06/2020 1:20 Resu lts for this AM CDT procedure are i n the results section. CBC WITH PLATELET AND Routine 06/06/2020 1:20 Re sults for this DIFFERENTIAL AM CDT procedure are i n the results section. POC GLUCOSE Routine 06/05/2020 11:49 Results for this PM CDT procedure are i n the results section. POC GLUCOSE Routine 06/05/2020 7:46 Results for this PM CDT procedure are i n the results section. PARTIAL THROMBOPLASTIN Routine 06/05/2020 7:22 R esults for this TIME (PTT) PM CDT procedure are i n the results section. ESTIMATED GFR Timed 06/05/2020 5:00 Results fo r this PM CDT procedure are i n the results section. BASIC METABOLIC PANEL Timed 06/05/2020 5:00 Re sults for this PM CDT procedure are i n the results section. HEMOGLOBIN & HEMATOCRIT Routine 06/05/2020 5:00 Results for this PM CDT procedure are i n the results section. POC GLUCOSE Routine 06/05/2020 3:35 Results for this PM CDT procedure are i n the results section. TRANSFUSE RED BLOOD Routine 06/05/2020 3:16 CELLS PM CDT XR CHEST 1 VW PORTABLE STAT 06/05/2020 12:19 R esults for this PM CDT procedure are i n the results section. ARTERIAL BLOOD GAS STAT 06/05/2020 11:40 Resul ts for this AM CDT procedure are i n the results section. HEMOGLOBIN & HEMATOCRIT Routine 06/05/2020 11:40 Results for this AM CDT procedure are i n the results section. POC GLUCOSE Routine 06/05/2020 11:33 Results for this AM CDT procedure are i n the results section. PARTIAL THROMBOPLASTIN Routine 06/05/2020 9:25 R esults for this TIME (PTT) AM CDT procedure are i n the results section. ANTI XA, UNFRACTIONATED Routine 06/05/2020 9:25 Results for this AM CDT procedure are i n the results section. POC GLUCOSE Routine 06/05/2020 7:35 Results for this AM CDT procedure are i n the results section. XR CHEST 1 VW PORTABLE Routine 06/05/2020 5:41 R esults for this AM CDT procedure are i n the results section. POC GLUCOSE Routine 06/05/2020 4:03 Results for this AM CDT procedure are i n the results section. PHOSPHORUS LEVEL Routine 06/05/2020 2:07 Results for this AM CDT procedure are i n the results section. MAGNESIUM LEVEL Routine 06/05/2020 2:07 Results for this AM CDT procedure are i n the results section. ESTIMATED GFR Routine 06/05/2020 2:07 Results fo r this AM CDT procedure are i n the results section. BASIC METABOLIC PANEL Routine 06/05/2020 2:07 Re sults for this AM CDT procedure are i n the results section. CBC HEMOGRAM Routine 06/05/2020 1:50 Results for this AM CDT procedure are i n the results section. ANTI XA, UNFRACTIONATED Routine 06/05/2020 1:50 Results for this AM CDT procedure are i n the results section. ARTERIAL BLOOD GAS Routine 06/05/2020 12:07 Resul ts for this AM CDT procedure are i n the results section. POC GLUCOSE Routine 06/04/2020 11:49 Results for this PM CDT procedure are i n the results section. POC GLUCOSE Routine 06/04/2020 7:39 Results for this PM CDT procedure are i n the results section. ANTI XA, UNFRACTIONATED Routine 06/04/2020 6:14 Results for this PM CDT procedure are i n the results section. POTASSIUM LEVEL Timed 06/04/2020 4:00 Results for this PM CDT procedure are i n the results section. MAGNESIUM LEVEL Timed 06/04/2020 4:00 Results for this PM CDT procedure are i n the results section. PHOSPHORUS LEVEL Timed 06/04/2020 4:00 Results for this PM CDT procedure are i n the results section. POC GLUCOSE Routine 06/04/2020 3:44 Results for this PM CDT procedure are i n the results section. HEMODIALYSIS Routine 06/04/2020 2:09 PM CDT POC GLUCOSE Routine 06/04/2020 12:07 Results for this PM CDT procedure are i n the results section. ANTI XA, UNFRACTIONATED Routine 06/04/2020 10:55 Results for this AM CDT procedure are i n the results section. POC GLUCOSE Routine 06/04/2020 7:42 Results for this AM CDT procedure are i n the results section. ANTI XA, UNFRACTIONATED Routine 06/04/2020 4:30 Results for this AM CDT procedure are i n the results section. ARTERIAL BLOOD GAS Routine 06/04/2020 4:10 Resul ts for this AM CDT procedure are i n the results section. XR CHEST 1 VW PORTABLE Routine 06/04/2020 4:10 R esults for this AM CDT procedure are i n the results section. POC GLUCOSE Routine 06/04/2020 4:08 Results for this AM CDT procedure are i n the results section. LACTIC ACID LEVEL STAT 06/04/2020 3:23 Result s for this AM CDT procedure are i n the results section. PREPARE RBC STAT 06/04/2020 12:41 Results for this AM CDT procedure are i n the results section. ESTIMATED GFR Routine 06/04/2020 12:41 Results fo r this AM CDT procedure are i n the results section. TYPE AND SCREEN Routine 06/04/2020 12:41 Results for this AM CDT procedure are i n the results section. MAGNESIUM LEVEL Routine 06/04/2020 12:41 Results for this AM CDT procedure are i n the results section. CBC HEMOGRAM Routine 06/04/2020 12:41 Results for this AM CDT procedure are i n the results section. BASIC METABOLIC PANEL Routine 06/04/2020 12:41 Re sults for this AM CDT procedure are i n the results section. XR CHEST 1 VW PORTABLE Routine 06/04/2020 12:30 R esults for this AM CDT procedure are i n the results section. ARTERIAL BLOOD GAS Routine 06/04/2020 12:18 Resul ts for this AM CDT procedure are i n the results section. POC GLUCOSE Routine 06/04/2020 12:07 Results for this AM CDT procedure are i n the results section. ANTI XA, UNFRACTIONATED Timed 06/03/2020 9:35 Results for this PM CDT procedure are i n the results section. POC GLUCOSE Routine 06/03/2020 7:59 Results for this PM CDT procedure are i n the results section. POC GLUCOSE Routine 06/03/2020 4:08 Results for this PM CDT procedure are i n the results section. ANTI XA, UNFRACTIONATED Timed 06/03/2020 2:30 Results for this PM CDT procedure are i n the results section. POC GLUCOSE Routine 06/03/2020 12:08 Results for this PM CDT procedure are i n the results section. XR ABDOMEN 1 VW PORTABLE Routine 06/03/2020 10:38 Results for this AM CDT procedure are i n the results section. ULTRAFILTRATION Routine 06/03/2020 9:36 AM CDT ARTERIAL BLOOD GAS Routine 06/03/2020 9:30 Resul ts for this AM CDT procedure are i n the results section. POC GLUCOSE Routine 06/03/2020 8:04 Results for this AM CDT procedure are i n the results section. XR CHEST 1 VW PORTABLE STAT 06/03/2020 4:26 R esults for this AM CDT procedure are i n the results section. POC GLUCOSE Routine 06/03/2020 3:53 Results for this AM CDT procedure are i n the results section. BILIRUBIN DIRECT Routine 06/03/2020 2:48 Results for this AM CDT procedure are i n the results section. ESTIMATED GFR Routine 06/03/2020 2:48 Results fo r this AM CDT procedure are i n the results section. PHOSPHORUS LEVEL Routine 06/03/2020 2:48 Results for this AM CDT procedure are i n the results section. MAGNESIUM LEVEL Routine 06/03/2020 2:48 Results for this AM CDT procedure are i n the results section. COMPREHENSIVE METABOLIC Routine 06/03/2020 2:48 Results for this PANEL AM CDT procedure are i n the results section. PROTHROMBIN TIME WITH Routine 06/03/2020 2:23 Re sults for this INR AM CDT procedure are i n the results section. HC COMPLETE BLD COUNT Routine 06/03/2020 2:23 Re sults for this W/AUTO DIFF AM CDT procedure are i n the results section. ANTI XA, UNFRACTIONATED Routine 06/03/2020 2:23 Results for this AM CDT procedure are i n the results section. POC GLUCOSE Routine 06/02/2020 11:58 Results for this PM CDT procedure are i n the results section. XR CHEST 1 VW PORTABLE STAT 06/02/2020 11:09 R esults for this PM CDT procedure are i n the results section. HC CVL NON-TUNNELED Routine 06/02/2020 10:36 [facility] (HCC) Res ults for this INSERT 5YRS OR > PM CDT procedure a re in the results section. MD INSERT NON-TUNNEL CV Routine 06/02/2020 10:36 [facility] (HCC) Results for this CATH PM CDT procedure are i n the results section. POC GLUCOSE Routine 06/02/2020 9:42 Results for this PM CDT procedure are i n the results section. XR CHEST 1 VW PORTABLE STAT 06/02/2020 9:39 R esults for this PM CDT procedure are i n the results section. IONIZED CALCIUM, Routine 06/02/2020 9:33 Results for this ARTERIAL PM CDT procedure are i n the results section. ESTIMATED GFR Routine 06/02/2020 9:33 Results fo r this PM CDT procedure are i n the results section. FIBRINOGEN Routine 06/02/2020 9:33 Results for this PM CDT procedure are i n the results section. ARTERIAL BLOOD GAS Routine 06/02/2020 9:33 Resul ts for this PM CDT procedure are i n the results section. PARTIAL THROMBOPLASTIN Routine 06/02/2020 9:33 R esults for this TIME (PTT) PM CDT procedure are i n the results section. PROTHROMBIN TIME WITH Routine 06/02/2020 9:33 Re sults for this INR PM CDT procedure are i n the results section. PHOSPHORUS LEVEL Routine 06/02/2020 9:33 Results for this PM CDT procedure are i n the results section. MAGNESIUM LEVEL Routine 06/02/2020 9:33 Results for this PM CDT procedure are i n the results section. HC COMPLETE BLD COUNT Routine 06/02/2020 9:33 Re sults for this W/AUTO DIFF PM CDT procedure are i n the results section. BASIC METABOLIC PANEL Routine 06/02/2020 9:33 Re sults for this PM CDT procedure are i n the results section. CONSULT CARDIAC REHAB Routine 06/02/2020 9:26 PHASE 1 PM CDT ECG 12-LEAD STAT 06/02/2020 9:24 Results for this PM CDT procedure are i n the results section. GLUCOSE LEVEL, SYRINGE STAT 06/02/2020 8:28 R esults for this PM CDT procedure are i n the results section. LACTIC ACID, SYRINGE STAT 06/02/2020 8:28 Res ults for this PM CDT procedure are i n the results section. HEMOGLOBIN, SYRINGE STAT 06/02/2020 8:28 Resu lts for this PM CDT procedure are i n the results section. IONIZED CALCIUM, STAT 06/02/2020 8:28 Results for this ARTERIAL PM CDT procedure are i n the results section. SODIUM LEVEL, SYRINGE STAT 06/02/2020 8:28 Re sults for this PM CDT procedure are i n the results section. POTASSIUM, SYRINGE STAT 06/02/2020 8:28 Resul ts for this PM CDT procedure are i n the results section. ARTERIAL BLOOD GAS, STAT 06/02/2020 8:28 Resu lts for this CORRECTED PM CDT procedure are i n the results section. FIBRINOGEN STAT 06/02/2020 6:55 Results for this PM CDT procedure are i n the results section. PLATELET COUNT STAT 06/02/2020 6:55 Results f or this PM CDT procedure are i n the results section. PROTHROMBIN TIME WITH STAT 06/02/2020 6:55 Re sults for this INR PM CDT procedure are i n the results section. HEMOGLOBIN & HEMATOCRIT STAT 06/02/2020 6:55 Results for this PM CDT procedure are i n the results section. ROTATIONAL STAT 06/02/2020 6:23 Results for this THROMBOELASTOMETRY, PM CDT procedur e are in HEPTM the results section. ROTATIONAL STAT 06/02/2020 6:23 Results for this THROMBOELASTOMETRY, PM CDT procedur e are in FIBTEM the results section. ROTATIONAL STAT 06/02/2020 6:23 Results for this THROMBOELASTOMETRY, PM CDT procedur e are in INTEM the results section. ROTATIONAL STAT 06/02/2020 6:23 Results for this THROMBOELASTOMETRY, PM CDT procedur e are in EXTEM the results section. FIBRINOGEN STAT 06/02/2020 6:23 Results for this PM CDT procedure are i n the results section. LACTIC ACID, SYRINGE STAT 06/02/2020 6:23 Res ults for this PM CDT procedure are i n the results section. PROTHROMBIN TIME WITH STAT 06/02/2020 6:23 Re sults for this INR PM CDT procedure are i n the results section. IONIZED CALCIUM, STAT 06/02/2020 6:23 Results for this ARTERIAL PM CDT procedure are i n the results section. GLUCOSE LEVEL, SYRINGE STAT 06/02/2020 6:23 R esults for this PM CDT procedure are i n the results section. HEMOGLOBIN, SYRINGE STAT 06/02/2020 6:23 Resu lts for this PM CDT procedure are i n the results section. SODIUM LEVEL, SYRINGE STAT 06/02/2020 6:23 Re sults for this PM CDT procedure are i n the results section. POTASSIUM, SYRINGE STAT 06/02/2020 6:23 Resul ts for this PM CDT procedure are i n the results section. ARTERIAL BLOOD GAS, STAT 06/02/2020 6:23 Resu lts for this CORRECTED PM CDT procedure are i n the results section. AFB CULTURE Timed 06/02/2020 4:41 Pleural effusion, PM CDT not elsewhere classified AFB CULTURE Timed 06/02/2020 4:40 Pleural effusion, PM CDT not elsewhere classified SURGICAL PATHOLOGY Routine 06/02/2020 3:42 Resul ts for this REQUEST PM CDT procedure are i n the results section. GRAM STAIN Timed 06/02/2020 3:41 Results for this PM CDT procedure are i n the results section. AFB STAIN Timed 06/02/2020 3:41 Results for this PM CDT procedure are i n the results section. FUNGUS SMEAR Timed 06/02/2020 3:41 Results for this PM CDT procedure are i n the results section. AEROBIC CULTURE Timed 06/02/2020 3:41 Pleural effusion, Res ults for this PM CDT not elsewhere procedure are in classified the results section. FUNGUS CULTURE Timed 06/02/2020 3:41 Pleural effusion, Resu lts for this PM CDT not elsewhere procedure are in classified the results section. ANAEROBIC CULTURE Timed 06/02/2020 3:41 Pleural effusion, R esults for this PM CDT not elsewhere procedure are in classified the results section. TISSUE CULTURE Timed 06/02/2020 3:40 Results f or this PM CDT procedure are i n the results section. AFB STAIN Timed 06/02/2020 3:40 Results for this PM CDT procedure are i n the results section. FUNGUS SMEAR Timed 06/02/2020 3:40 Results for this PM CDT procedure are i n the results section. GRAM STAIN Timed 06/02/2020 3:40 Results for this PM CDT procedure are i n the results section. FUNGUS CULTURE Timed 06/02/2020 3:40 Pleural effusion, Resu lts for this PM CDT not elsewhere procedure are in classified the results section. ANAEROBIC CULTURE Timed 06/02/2020 3:40 Pleural effusion, R esults for this PM CDT not elsewhere procedure are in classified the results section. MD AN ELECTIVE Routine 06/02/2020 2:46 Results f or this ENDOTRACHEAL AIRWAY PM CDT procedur e are in the results section. ARTERIAL LINE Routine 06/02/2020 2:44 Results fo r this PM CDT procedure are i n the results section. GLUCOSE LEVEL, SYRINGE STAT 06/02/2020 2:31 R esults for this PM CDT procedure are i n the results section. HEMOGLOBIN, SYRINGE STAT 06/02/2020 2:31 Resu lts for this PM CDT procedure are i n the results section. IONIZED CALCIUM, STAT 06/02/2020 2:31 Results for this ARTERIAL PM CDT procedure are i n the results section. SODIUM LEVEL, SYRINGE STAT 06/02/2020 2:31 Re sults for this PM CDT procedure are i n the results section. POTASSIUM, SYRINGE STAT 06/02/2020 2:31 Resul ts for this PM CDT procedure are i n the results section. ARTERIAL BLOOD GAS, STAT 06/02/2020 2:31 Resu lts for this CORRECTED PM CDT procedure are i n the results section. CYTOLOGY Routine 06/02/2020 9:52 Results for this (NON-GYNECOLOGICAL) AM CDT procedur e are in REQUEST the results section. HEMODIALYSIS Routine 06/02/2020 7:39 AM CDT ESTIMATED GFR Routine 06/02/2020 3:46 Results fo r this AM CDT procedure are i n the results section. HEPATIC FUNCTION PANEL Routine 06/02/2020 3:46 R esults for this AM CDT procedure are i n the results section. BASIC METABOLIC PANEL Routine 06/02/2020 3:46 Re sults for this AM CDT procedure are i n the results section. HC COMPLETE BLD COUNT Routine 06/02/2020 3:46 Re sults for this W/AUTO DIFF AM CDT procedure are i n the results section. PARTIAL THROMBOPLASTIN Routine 06/02/2020 3:46 R esults for this TIME (PTT) AM CDT procedure are i n the results section. PROTHROMBIN TIME WITH Routine 06/02/2020 3:46 Re sults for this INR AM CDT procedure are i n the results section. ANTI XA, UNFRACTIONATED Routine 06/02/2020 3:46 Results for this AM CDT procedure are i n the results section. ECHOCARDIOGRAM Routine 06/01/2020 1:14 Results f or this TRANSESOPHAGEAL W PM CDT procedure are in DOPPLER COLORFLOW the result s section. ANTI XA, UNFRACTIONATED Routine 06/01/2020 4:35 Results for this AM CDT procedure are i n the results section. TRANSFUSE RED BLOOD Routine 05/31/2020 5:12 CELLS PM CDT TRANSFUSE RED BLOOD Routine 05/31/2020 4:13 CELLS PM CDT PREPARE RBC Routine 05/31/2020 1:30 Results for this PM CDT procedure are i n the results section. PREPARE RBC Routine 05/31/2020 1:30 Results for this PM CDT procedure are i n the results section. TYPE AND SCREEN Routine 05/31/2020 1:30 Results for this PM CDT procedure are i n the results section. HEMODIALYSIS Routine 05/31/2020 12:19 PM CDT COVID-19 QUALITATIVE PCR STAT 05/31/2020 8:16 Results for this AM CDT procedure are i n the results section. HC COMPLETE BLD COUNT Routine 05/31/2020 4:13 Re sults for this W/AUTO DIFF AM CDT procedure are i n the results section. ANTI XA, UNFRACTIONATED Routine 05/31/2020 4:13 Results for this AM CDT procedure are i n the results section. ANTI XA, UNFRACTIONATED Routine 05/30/2020 3:00 Results for this PM CDT procedure are i n the results section. ANTI XA, UNFRACTIONATED Timed 05/30/2020 8:52 Results for this AM CDT procedure are i n the results section. HEMODIALYSIS Routine 05/30/2020 6:13 AM CDT ESTIMATED GFR Routine 05/30/2020 1:40 Results fo r this AM CDT procedure are i n the results section. ANTI XA, UNFRACTIONATED Routine 05/30/2020 1:40 Results for this AM CDT procedure are i n the results section. BASIC METABOLIC PANEL Routine 05/30/2020 1:40 Re sults for this AM CDT procedure are i n the results section. HC COMPLETE BLD COUNT Routine 05/30/2020 1:40 Re sults for this W/AUTO DIFF AM CDT procedure are i n the results section. PROTHROMBIN TIME WITH Routine 05/29/2020 6:05 Re sults for this INR PM CDT procedure are i n the results section. TTE COMPLETE, W Routine 05/29/2020 9:50 Results for this CONTRAST, W DOPPLER AM CDT procedur e are in ([id number]) the results section. ESTIMATED GFR Routine 05/29/2020 4:54 Results fo r this AM CDT procedure are i n the results section. BASIC METABOLIC PANEL Routine 05/29/2020 4:54 Re sults for this AM CDT procedure are i n the results section. HC COMPLETE BLD COUNT Routine 05/29/2020 4:54 Re sults for this W/AUTO DIFF AM CDT procedure are i n the results section. PROTHROMBIN TIME WITH Routine 05/29/2020 4:54 Re sults for this INR AM CDT procedure are i n the results section. ECG PRE/POST OP Routine 05/28/2020 10:05 Results for this PM CDT procedure are i n the results section. TROPONIN Routine 05/28/2020 1:00 Results for this PM CDT procedure are i n the results section. B NATRIURETIC PEPTIDE Routine 05/28/2020 1:00 Re sults for this PM CDT procedure are i n the results section. HEMODIALYSIS Routine 05/28/2020 9:27 AM CDT XR CHEST 1 VW PORTABLE STAT 05/28/2020 8:49 R esults for this AM CDT procedure are i n the results section. CBC HEMOGRAM Routine 05/28/2020 3:08 Results for this AM CDT procedure are i n the results section. PROTHROMBIN TIME WITH Routine 05/28/2020 3:08 Re sults for this INR AM CDT procedure are i n the results section. ESTIMATED GFR Routine 05/27/2020 4:28 Results fo r this AM CDT procedure are i n the results section. BASIC METABOLIC PANEL Routine 05/27/2020 4:28 Re sults for this AM CDT procedure are i n the results section. HC COMPLETE BLD COUNT Routine 05/27/2020 4:28 Re sults for this W/AUTO DIFF AM CDT procedure are i n the results section. PROTHROMBIN TIME WITH Routine 05/27/2020 4:28 Re sults for this INR AM CDT procedure are i n the results section. CT CHEST WO CONTRAST STAT 05/26/2020 6:03 Res ults for this PM CDT procedure are i n the results section. GRAM STAIN Routine 05/26/2020 5:45 Results for this PM CDT procedure are i n the results section. SPUTUM CULTURE Routine 05/26/2020 5:45 Results f or this PM CDT procedure are i n the results section. XR CHEST 1 VW PORTABLE STAT 05/26/2020 1:55 R esults for this PM CDT procedure are i n the results section. HEMODIALYSIS Routine 05/26/2020 7:36 AM CDT ESTIMATED GFR Routine 05/26/2020 4:04 Results fo r this AM CDT procedure are i n the results section. BASIC METABOLIC PANEL Routine 05/26/2020 4:04 Re sults for this AM CDT procedure are i n the results section. HC COMPLETE BLD COUNT Routine 05/26/2020 4:04 Re sults for this W/AUTO DIFF AM CDT procedure are i n the results section. PROTHROMBIN TIME WITH Routine 05/26/2020 4:04 Re sults for this INR AM CDT procedure are i n the results section. TRANSFUSE RED BLOOD Routine 05/25/2020 7:24 CELLS PM CDT PREPARE RBC Routine 05/25/2020 2:15 Results for this PM CDT procedure are i n the results section. TYPE AND SCREEN Routine 05/25/2020 2:15 Results for this PM CDT procedure are i n the results section. HEMOGLOBIN & HEMATOCRIT Routine 05/25/2020 11:41 Results for this AM CDT procedure are i n the results section. XR CHEST 1 VW PORTABLE Routine 05/25/2020 9:05 R esults for this AM CDT procedure are i n the results section. POC GLUCOSE Routine 05/25/2020 7:31 Results for this AM CDT procedure are i n the results section. PROTHROMBIN TIME WITH Routine 05/25/2020 4:25 Re sults for this INR AM CDT procedure are i n the results section. PARTIAL THROMBOPLASTIN Routine 05/25/2020 4:25 R esults for this TIME (PTT) AM CDT procedure are i n the results section. PARTIAL THROMBOPLASTIN Routine 05/24/2020 9:33 R esults for this TIME (PTT) AM CDT procedure are i n the results section. HEMODIALYSIS Routine 05/24/2020 7:18 AM CDT SMEAR REVIEW Routine 05/24/2020 2:05 Results for this AM CDT procedure are i n the results section. ESTIMATED GFR Routine 05/24/2020 2:05 Results fo r this AM CDT procedure are i n the results section. PROTHROMBIN TIME WITH Routine 05/24/2020 2:05 Re sults for this INR AM CDT procedure are i n the results section. PHOSPHORUS LEVEL Routine 05/24/2020 2:05 Results for this AM CDT procedure are i n the results section. MAGNESIUM LEVEL Routine 05/24/2020 2:05 Results for this AM CDT procedure are i n the results section. HC COMPLETE BLD COUNT Routine 05/24/2020 2:05 Re sults for this W/AUTO DIFF AM CDT procedure are i n the results section. BASIC METABOLIC PANEL Routine 05/24/2020 2:05 Re sults for this AM CDT procedure are i n the results section. PARTIAL THROMBOPLASTIN Routine 05/24/2020 1:15 R esults for this TIME (PTT) AM CDT procedure are i n the results section. PARTIAL THROMBOPLASTIN Timed 05/23/2020 4:59 R esults for this TIME (PTT) PM CDT procedure are i n the results section. XR CHEST 1 VW PORTABLE STAT 05/23/2020 11:57 R esults for this AM CDT procedure are i n the results section. PROTHROMBIN TIME WITH STAT 05/23/2020 10:09 Re sults for this INR AM CDT procedure are i n the results section. PARTIAL THROMBOPLASTIN STAT 05/23/2020 10:09 R esults for this TIME (PTT) AM CDT procedure are i n the results section. PARTIAL THROMBOPLASTIN Routine 05/23/2020 8:35 R esults for this TIME (PTT) AM CDT procedure are i n the results section. ESTIMATED GFR Routine 05/23/2020 4:20 Results fo r this AM CDT procedure are i n the results section. PARTIAL THROMBOPLASTIN Routine 05/23/2020 4:20 R esults for this TIME (PTT) AM CDT procedure are i n the results section. PHOSPHORUS LEVEL Routine 05/23/2020 4:20 Results for this AM CDT procedure are i n the results section. MAGNESIUM LEVEL Routine 05/23/2020 4:20 Results for this AM CDT procedure are i n the results section. HC COMPLETE BLD COUNT Routine 05/23/2020 4:20 Re sults for this W/AUTO DIFF AM CDT procedure are i n the results section. BASIC METABOLIC PANEL Routine 05/23/2020 4:20 Re sults for this AM CDT procedure are i n the results section. PROTHROMBIN TIME WITH Routine 05/23/2020 4:20 Re sults for this INR AM CDT procedure are i n the results section. XR CHEST 1 VW PORTABLE STAT 05/22/2020 10:06 R esults for this AM CDT procedure are i n the results section. ESTIMATED GFR Routine 05/22/2020 4:30 Results fo r this AM CDT procedure are i n the results section. PARTIAL THROMBOPLASTIN Routine 05/22/2020 4:30 R esults for this TIME (PTT) AM CDT procedure are i n the results section. PHOSPHORUS LEVEL Routine 05/22/2020 4:30 Results for this AM CDT procedure are i n the results section. MAGNESIUM LEVEL Routine 05/22/2020 4:30 Results for this AM CDT procedure are i n the results section. HC COMPLETE BLD COUNT Routine 05/22/2020 4:30 Re sults for this W/AUTO DIFF AM CDT procedure are i n the results section. BASIC METABOLIC PANEL Routine 05/22/2020 4:30 Re sults for this AM CDT procedure are i n the results section. PROTHROMBIN TIME WITH Routine 05/22/2020 4:30 Re sults for this INR AM CDT procedure are i n the results section. HEMODIALYSIS Routine 05/21/2020 10:54 AM CDT ESTIMATED GFR Routine 05/21/2020 4:00 Results fo r this AM CDT procedure are i n the results section. PROTHROMBIN TIME WITH Routine 05/21/2020 4:00 Re sults for this INR AM CDT procedure are i n the results section. PARTIAL THROMBOPLASTIN Routine 05/21/2020 4:00 R esults for this TIME (PTT) AM CDT procedure are i n the results section. PHOSPHORUS LEVEL Routine 05/21/2020 4:00 Results for this AM CDT procedure are i n the results section. MAGNESIUM LEVEL Routine 05/21/2020 4:00 Results for this AM CDT procedure are i n the results section. BASIC METABOLIC PANEL Routine 05/21/2020 4:00 Re sults for this AM CDT procedure are i n the results section. HC COMPLETE BLD COUNT Routine 05/21/2020 4:00 Re sults for this W/AUTO DIFF AM CDT procedure are i n the results section. XR CHEST 1 VW PORTABLE STAT 05/21/2020 12:37 R esults for this AM CDT procedure are i n the results section. XR CHEST 1 VW PORTABLE STAT 05/20/2020 12:10 R esults for this PM CDT procedure are i n the results section. ESTIMATED GFR Routine 05/20/2020 4:00 Results fo r this AM CDT procedure are i n the results section. PARTIAL THROMBOPLASTIN Routine 05/20/2020 4:00 R esults for this TIME (PTT) AM CDT procedure are i n the results section. PROTHROMBIN TIME WITH Routine 05/20/2020 4:00 Re sults for this INR AM CDT procedure are i n the results section. PHOSPHORUS LEVEL Routine 05/20/2020 4:00 Results for this AM CDT procedure are i n the results section. MAGNESIUM LEVEL Routine 05/20/2020 4:00 Results for this AM CDT procedure are i n the results section. BASIC METABOLIC PANEL Routine 05/20/2020 4:00 Re sults for this AM CDT procedure are i n the results section. HC COMPLETE BLD COUNT Routine 05/20/2020 4:00 Re sults for this W/AUTO DIFF AM CDT procedure are i n the results section. XR CHEST 1 VW PORTABLE STAT 05/19/2020 9:23 R esults for this AM CDT procedure are i n the results section. HEMODIALYSIS Routine 05/19/2020 6:44 AM CDT ESTIMATED GFR Routine 05/19/2020 5:25 Results fo r this AM CDT procedure are i n the results section. PHOSPHORUS LEVEL Routine 05/19/2020 5:25 Results for this AM CDT procedure are i n the results section. MAGNESIUM LEVEL Routine 05/19/2020 5:25 Results for this AM CDT procedure are i n the results section. BASIC METABOLIC PANEL Routine 05/19/2020 5:25 Re sults for this AM CDT procedure are i n the results section. HC COMPLETE BLD COUNT Routine 05/19/2020 5:25 Re sults for this W/AUTO DIFF AM CDT procedure are i n the results section. PARTIAL THROMBOPLASTIN Routine 05/19/2020 5:25 R esults for this TIME (PTT) AM CDT procedure are i n the results section. XR CHEST 1 VW PORTABLE STAT 05/18/2020 4:09 R esults for this PM CDT procedure are i n the results section. XR CHEST 1 VW PORTABLE STAT 05/18/2020 11:45 R esults for this AM CDT procedure are i n the results section. PARTIAL THROMBOPLASTIN Routine 05/18/2020 4:45 R esults for this TIME (PTT) AM CDT procedure are i n the results section. PARTIAL THROMBOPLASTIN Timed 05/17/2020 10:30 R esults for this TIME (PTT) AM CDT procedure are i n the results section. XR CHEST 1 VW PORTABLE STAT 05/17/2020 8:30 R esults for this AM CDT procedure are i n the results section. VANCOMYCIN LEVEL, RANDOM Routine 05/17/2020 4:00 Results for this AM CDT procedure are i n the results section. PARTIAL THROMBOPLASTIN Routine 05/17/2020 3:50 R esults for this TIME (PTT) AM CDT procedure are i n the results section. PARTIAL THROMBOPLASTIN Timed 05/16/2020 7:46 R esults for this TIME (PTT) PM CDT procedure are i n the results section. XR CHEST 1 VW PORTABLE Routine 05/16/2020 4:58 R esults for this PM CDT procedure are i n the results section. HEMODIALYSIS Routine 05/16/2020 4:11 PM CDT GENERAL Routine 05/16/2020 12:19 [facility] (HCC) Results fo r this PM CDT procedure are i n the results section. CT CHEST WO CONTRAST Routine 05/16/2020 9:09 Res ults for this AM CDT procedure are i n the results section. ESTIMATED GFR Routine 05/16/2020 5:30 Results fo r this AM CDT procedure are i n the results section. PARTIAL THROMBOPLASTIN Routine 05/16/2020 5:30 R esults for this TIME (PTT) AM CDT procedure are i n the results section. BASIC METABOLIC PANEL Routine 05/16/2020 5:30 Re sults for this AM CDT procedure are i n the results section. XR CHEST 1 VW PORTABLE STAT 05/15/2020 1:20 R esults for this PM CDT procedure are i n the results section. CBC HEMOGRAM Routine 05/15/2020 3:15 Results for this AM CDT procedure are i n the results section. ESTIMATED GFR Routine 05/15/2020 3:15 Results fo r this AM CDT procedure are i n the results section. PARTIAL THROMBOPLASTIN Routine 05/15/2020 3:15 R esults for this TIME (PTT) AM CDT procedure are i n the results section. BASIC METABOLIC PANEL Routine 05/15/2020 3:15 Re sults for this AM CDT procedure are i n the results section. HEMODIALYSIS Routine 05/14/2020 9:26 AM CDT XR CHEST 1 VW PORTABLE Routine 05/14/2020 8:24 R esults for this AM CDT procedure are i n the results section. CBC HEMOGRAM Timed 05/14/2020 7:30 Results for this AM CDT procedure are i n the results section. PARTIAL THROMBOPLASTIN Routine 05/14/2020 6:05 R esults for this TIME (PTT) AM CDT procedure are i n the results section. PROTHROMBIN TIME WITH Routine 05/14/2020 6:05 Re sults for this INR AM CDT procedure are i n the results section. ESTIMATED GFR Routine 05/14/2020 4:00 Results fo r this AM CDT procedure are i n the results section. BASIC METABOLIC PANEL Routine 05/14/2020 4:00 Re sults for this AM CDT procedure are i n the results section. PARTIAL THROMBOPLASTIN Timed 05/13/2020 11:20 R esults for this TIME (PTT) PM CDT procedure are i n the results section. POC GLUCOSE Routine 05/13/2020 9:03 Results for this PM CDT procedure are i n the results section. PARTIAL THROMBOPLASTIN Timed 05/13/2020 5:00 R esults for this TIME (PTT) PM CDT procedure are i n the results section. PARTIAL THROMBOPLASTIN Routine 05/13/2020 5:00 R esults for this TIME (PTT) PM CDT procedure are i n the results section. XR CHEST 1 VW PORTABLE Routine 05/13/2020 1:21 R esults for this PM CDT procedure are i n the results section. CBC HEMOGRAM Timed 05/13/2020 5:42 Results for this AM CDT procedure are i n the results section. ESTIMATED GFR Routine 05/13/2020 5:42 Results fo r this AM CDT procedure are i n the results section. PARTIAL THROMBOPLASTIN Routine 05/13/2020 5:42 R esults for this TIME (PTT) AM CDT procedure are i n the results section. BASIC METABOLIC PANEL Routine 05/13/2020 5:42 Re sults for this AM CDT procedure are i n the results section. VANCOMYCIN LEVEL, RANDOM Routine 05/13/2020 5:42 Results for this AM CDT procedure are i n the results section. PROTHROMBIN TIME WITH Routine 05/13/2020 5:42 Re sults for this INR AM CDT procedure are i n the results section. XR CHEST 1 VW PORTABLE Routine 05/12/2020 9:28 R esults for this PM CDT procedure are i n the results section. POC GLUCOSE Routine 05/12/2020 7:46 Results for this PM CDT procedure are i n the results section. POC GLUCOSE Routine 05/12/2020 5:56 Results for this PM CDT procedure are i n the results section. XR CHEST 1 VW STAT 05/12/2020 5:08 Results fo r this PM CDT procedure are i n the results section. US INSERT PLEURA Routine 05/12/2020 4:45 Results for this CATHETER PM CDT procedure are i n the results section. PH, MISC FLUID Routine 05/12/2020 4:30 Results f or this PM CDT procedure are i n the results section. TRIGLYCERIDES, MISC Routine 05/12/2020 4:30 Resu lts for this FLUID PM CDT procedure are i n the results section. PROTEIN, MISC FLUID Routine 05/12/2020 4:30 Resu lts for this PM CDT procedure are i n the results section. ALBUMIN, MISC FLUID Routine 05/12/2020 4:30 Resu lts for this PM CDT procedure are i n the results section. CELL COUNT AND Routine 05/12/2020 4:30 Results f or this DIFFERENTIAL, BODY FLUID PM CDT pro cedure are in the results section. LDH, MISC FLUID Routine 05/12/2020 4:30 Results for this PM CDT procedure are i n the results section. GLUCOSE LEVEL, MISC Routine 05/12/2020 4:30 Resu lts for this FLUID PM CDT procedure are i n the results section. AMYLASE LEVEL, MISC Routine 05/12/2020 4:30 Resu lts for this FLUID PM CDT procedure are i n the results section. FUNGUS SMEAR Routine 05/12/2020 4:30 Results for this PM CDT procedure are i n the results section. GRAM STAIN Routine 05/12/2020 4:30 Results for this PM CDT procedure are i n the results section. FUNGUS CULTURE Routine 05/12/2020 4:30 Results f or this PM CDT procedure are i n the results section. ANAEROBIC CULTURE Routine 05/12/2020 4:30 Result s for this PM CDT procedure are i n the results section. AEROBIC CULTURE Routine 05/12/2020 4:30 Results for this PM CDT procedure are i n the results section. POC GLUCOSE Routine 05/12/2020 12:45 Results for this PM CDT procedure are i n the results section. HEMODIALYSIS Routine 05/12/2020 6:11 AM CDT ESTIMATED GFR Routine 05/12/2020 4:48 Results fo r this AM CDT procedure are i n the results section. PROTHROMBIN TIME WITH Routine 05/12/2020 4:48 Re sults for this INR AM CDT procedure are i n the results section. PHOSPHORUS LEVEL Routine 05/12/2020 4:48 Results for this AM CDT procedure are i n the results section. MAGNESIUM LEVEL Routine 05/12/2020 4:48 Results for this AM CDT procedure are i n the results section. BASIC METABOLIC PANEL Routine 05/12/2020 4:48 Re sults for this AM CDT procedure are i n the results section. HC COMPLETE BLD COUNT Routine 05/12/2020 4:48 Re sults for this W/AUTO DIFF AM CDT procedure are i n the results section. POC GLUCOSE Routine 05/11/2020 8:32 Results for this PM CDT procedure are i n the results section. POC GLUCOSE Routine 05/11/2020 5:17 Results for this PM CDT procedure are i n the results section. POC GLUCOSE Routine 05/11/2020 12:08 Results for this PM CDT procedure are i n the results section. HEMODIALYSIS Routine 05/11/2020 11:50 AM CDT POC GLUCOSE Routine 05/11/2020 7:49 Results for this AM CDT procedure are i n the results section. ESTIMATED GFR Routine 05/11/2020 4:00 Results fo r this AM CDT procedure are i n the results section. PROTHROMBIN TIME WITH Routine 05/11/2020 4:00 Re sults for this INR AM CDT procedure are i n the results section. PHOSPHORUS LEVEL Routine 05/11/2020 4:00 Results for this AM CDT procedure are i n the results section. MAGNESIUM LEVEL Routine 05/11/2020 4:00 Results for this AM CDT procedure are i n the results section. BASIC METABOLIC PANEL Routine 05/11/2020 4:00 Re sults for this AM CDT procedure are i n the results section. HC COMPLETE BLD COUNT Routine 05/11/2020 4:00 Re sults for this W/AUTO DIFF AM CDT procedure are i n the results section. PARTIAL THROMBOPLASTIN Routine 05/10/2020 9:10 R esults for this TIME (PTT) PM CDT procedure are i n the results section. PROTHROMBIN TIME WITH Routine 05/10/2020 9:10 Re sults for this INR PM CDT procedure are i n the results section. POC GLUCOSE Routine 05/10/2020 8:43 Results for this PM CDT procedure are i n the results section. POC GLUCOSE Routine 05/10/2020 4:44 Results for this PM CDT procedure are i n the results section. HEPATITIS B SURFACE Routine 05/10/2020 12:15 Resu lts for this ANTIGEN PM CDT procedure are i n the results section. POC GLUCOSE Routine 05/10/2020 11:29 Results for this AM CDT procedure are i n the results section. ECG 12-LEAD STAT 05/10/2020 8:23 Results for this AM CDT procedure are i n the results section. POC GLUCOSE Routine 05/10/2020 8:01 Results for this AM CDT procedure are i n the results section. ESTIMATED GFR Routine 05/10/2020 3:25 Results fo r this AM CDT procedure are i n the results section. VANCOMYCIN LEVEL, RANDOM Routine 05/10/2020 3:25 Results for this AM CDT procedure are i n the results section. CD 4/8 SUBSET Routine 05/10/2020 3:25 Results fo r this AM CDT procedure are i n the results section. PHOSPHORUS LEVEL Routine 05/10/2020 3:25 Results for this AM CDT procedure are i n the results section. MAGNESIUM LEVEL Routine 05/10/2020 3:25 Results for this AM CDT procedure are i n the results section. BASIC METABOLIC PANEL Routine 05/10/2020 3:25 Re sults for this AM CDT procedure are i n the results section. TROPONIN Timed 05/10/2020 3:25 Results for this AM CDT procedure are i n the results section. HC COMPLETE BLD COUNT Routine 05/10/2020 3:15 Re sults for this W/AUTO DIFF AM CDT procedure are i n the results section. MD CRITICAL CARE, E/M Routine 05/10/2020 1:13 Re sults for this 30-74 MINUTES AM CDT procedure are in the results section. GRAM STAIN Routine 05/09/2020 11:57 Results for this PM CDT procedure are i n the results section. SPUTUM CULTURE Routine 05/09/2020 11:57 Results f or this PM CDT procedure are i n the results section. HEMODIALYSIS Routine 05/09/2020 9:10 PM CDT ECG 12-LEAD Routine 05/09/2020 8:22 Results for this PM CDT procedure are i n the results section. CT CHEST WO CONTRAST STAT 05/09/2020 7:36 Res ults for this PM CDT procedure are i n the results section. ESTIMATED GFR STAT 05/09/2020 6:00 Results fo r this PM CDT procedure are i n the results section. B NATRIURETIC PEPTIDE STAT 05/09/2020 6:00 Re sults for this PM CDT procedure are i n the results section. TROPONIN STAT 05/09/2020 6:00 Results for this PM CDT procedure are i n the results section. COMPREHENSIVE METABOLIC STAT 05/09/2020 6:00 Results for this PANEL PM CDT procedure are i n the results section. PARTIAL THROMBOPLASTIN STAT 05/09/2020 6:00 R esults for this TIME (PTT) PM CDT procedure are i n the results section. PROTHROMBIN TIME WITH STAT 05/09/2020 6:00 Re sults for this INR PM CDT procedure are i n the results section. HC COMPLETE BLD COUNT STAT 05/09/2020 6:00 Re sults for this W/AUTO DIFF PM CDT procedure are i n the results section. RESPIRATORY PATHOGEN Routine 05/09/2020 6:00 Res ults for this PANEL PM CDT procedure are i n the results section. COVID-19 QUALITATIVE PCR STAT 05/09/2020 6:00 Results for this PM CDT procedure are i n the results section. INFLUENZA ANTIGEN TEST, Routine 05/09/2020 6:00 Results for this REFLEX NEGATIVE TO RPP PM CDT proce dure are in the results section. BLOOD CULTURE, AEROBIC & Routine 05/09/2020 6:00 Results for this ANAEROBIC PM CDT procedure are i n the results section. BLOOD CULTURE, AEROBIC & Routine 05/09/2020 5:45 Results for this ANAEROBIC PM CDT procedure are i n the results section. XR CHEST 1 VW PORTABLE STAT 05/09/2020 5:36 R esults for this PM CDT procedure are i n the results section. CT ABDOMEN PELVIS WO STAT 09/12/2019 8:46 Res ults for this CONTRAST PM HV[employer] FIELD SERVICE TECHNICIAN procedure are i n the results section. XR CHEST 2 VW STAT 09/12/2019 8:44 Results fo r this PM [employer] FI[employer] SERVICE TECHNICIAN procedure are i n the results section. BLOOD CULTURE, AEROBIC & STAT 09/12/2019 8:01 Results for this ANAEROBIC PM [employer] SERVICE TECHNICIAN procedure are i n the results section. MANUAL DIFFERENTIAL STAT 09/12/2019 7:43 Resu lts for this PM [employer] FI[employer] SERVICE TECHNICIAN procedure are i n the results section. BILIRUBIN DIRECT STAT 09/12/2019 7:43 Results for this PM [employer] FI[employer] SERVICE TECHNICIAN procedure are i n the results section. COMPREHENSIVE METABOLIC STAT 09/12/2019 7:43 Results for this PANEL PM [employer] FI[employer] SERVICE TECHNICIAN procedure are i n the results section. ESTIMATED GFR STAT 09/12/2019 7:43 Results fo r this PM [employer] FI[employer] SERVICE TECHNICIAN procedure are i n the results section. VENOUS BLOOD GAS STAT 09/12/2019 7:43 Results for this PM [employer] FI[employer] SERVICE TECHNICIAN procedure are i n the results section. TROPONIN, I-STAT STAT 09/12/2019 7:43 Results for this PM [employer] FIELD SERVICE TECHNICIAN procedure are i n the results section. LACTIC ACID, I-STAT STAT 09/12/2019 7:43 Resu lts for this PM [employer] FI[employer] SERVICE TECHNICIAN procedure are i n the results section. CBC WITH PLATELET AND STAT 09/12/2019 7:43 Re sults for this DIFFERENTIAL PM [employer] FI[employer] SERVICE TECHNICIAN procedure are i n the results section. BLOOD CULTURE, AEROBIC & STAT 09/12/2019 7:43 Results for this ANAEROBIC PM [employer] FI[employer] SERVICE TECHNICIAN procedure are i n the results section. INFLUENZA ANTIGEN Routine 09/12/2019 7:43 Result s for this PM [employer] FI[employer] SERVICE TECHNICIAN procedure are i n the results section. ECG ED PRELIMINARY Routine 09/12/2019 7:29 Resul ts for this INTERPRETATION PM HV[employer] FIELD SERVICE TECHNICIAN procedure are in the results section. ECG 12-LEAD STAT 09/12/2019 7:25 Results for this PM HV[employer] FI[employer] SERVICE TECHNICIAN procedure are i n the results section. after 07/15/2019 Results POC glucose (06/28/2020 6:17 PM CDT)Only the most recent of131 resultswithin the time period is included. Pathologist Sig nature POC glucose 139 (H) 65 - 99 mg/dL [facility] Comment: HOSPITAL Diesel Engine Specialist Name: Jesus Ugarte Device ID: [id number] Chartable: TM[facility] Notified RN Specimen Blood Performing Organization Address [facility] Phon e Number [facility] DEPARTMENT OF PATHOLOGY AND [address] [place] [address] [phone] [address] Estimated GFR (06/28/2020 3:08 AM CDT)Only the most recent of48 resultswithin the time period is included. Estimated GFR 21 (A) mL/min/1.73 [facility] Comment: HOSPITAL Catergory Units Interpretation G1 >=90 Normal or high G2 60-89 Mildly decreased G3a 45-59 Mildly to moderately decreas ed G3b 30-44 Moderately to severely decre ased G4 15-29 Severely decreased G5 <15 Kidney failure The eGFR was calculated using the Chronic Kidney Disea se Epidemiology Collaboration (CKD-EPI) equation. Interpretation is based on recommendations of the National Kidney Foundation-Kidney Disease Outcomes López lity Initiative (NKF-KDOQI) published in 2014. Specimen Plasma Performing Organization Address [facility] Phon e Number [facility] DEPARTMENT OF PATHOLOGY AND [address] [place] [phone] Basic metabolic panel (06/28/2020 3:08 AM CDT)Only the most recent of45 results within the time period is included. Pathologist Sig nature Sodium 130 (L) 135 - 148 mEq/L [facility] Potassium 4.1 3.5 - 5.0 mEq/L [facility] Chloride 93 (L) 98 - 112 mEq/L [facility] CO2 27 24 - 31 mEq/L [facility] Anion gap 10@ANIO 7 - 15 mEq/L [facility] BUN 28 (H) 8 - 23 mg/dL [facility] Creatinine 3.34 (H) 0.70 - 1.20 mg/dL [facility] Glucose 104 (H) 65 - 99 mg/dL [facility] Calcium 9.8 8.8 - 10.2 mg/dL [facility] Specimen Plasma Performing Organization Address City/[facility] Phon e Number [facility] DEPARTMENT OF PATHOLOGY AND [address] [place] [phone] [facility] [address] [place] [address] Prothrombin time with INR (06/28/2020 2:49 AM CDT)Only the most recent of43 resultswithin the time period is included. Prothrombin time 27.5 (H) 11.5 - 14.5 [facility] INR 2.5 [place] Comment: [facility] International Normalized Ratio (INR) is a [facility] monitoring tool for patients who are stable on oral anticoagulant therapy. An INR of 2.0-3.0 is suggested for deep vein thrombosis/pulmonary embolism. Specimen Blood Performing Organization Address City/State/[facility] Code Phon e Number [facility] DEPARTMENT OF PATHOLOGY AND [address] [place] [address] [phone] [address] CBC with platelet and differential (06/28/2020 2:49 AM CDT)Only the most recent of37 resultswithin the time period is included. Pathologist [facility] WBC 7.14 4.50 - 11.00 [facility] k/uL [facility] RBC 2.52 (L) 4.40 - 6.00 [facility] m/uL [facility] HGB 8.2 (L) 14.0 - 18.0 [facility]/dL [facility] HCT 26.4 (L) 41.0 - 51.0 % [facility] MCV 104.8 (H) 82.0 - 100.0 [facility] MCH 32.5 27.0 - 34.0 pg [facility] MCHC 31.1 31.0 - 37.0 [facility] RDW - SD 68.6 (H) 37.0 - 55.0 fL [facility] MPV 8.4 (L) 8.8 - 13.2 [facility] Platelet count 192 150 - 400 k/uL [facility] Nucleated RBC 0.00 /100 WBC [facility] Neutrophils 66.7 39.0 - 69.0 % [facility] Lymphocytes 17.1 (L) 25.0 - 45.0 % [facility] Monocytes 12.7 (H) 0.0 - 10.0 % [facility] Eosinophils 2.1 0.0 - 5.0 % [facility] Basophils 0.7 0.0 - 1.0 % [facility] Immature granulocytes 0.7Comment: 0.0 - 1.0 % [facility] "Immature HOSPITAL granulocytes" (promyelocytes , myelocytes, metamyelocytes ) Specimen Plasma Performing Organization Address City/[facility] Phon e Number [facility] DEPARTMENT OF PATHOLOGY AND [address] [place] [address] [phone] [address] Potassium level (06/27/2020 3:44 PM CDT)Only the most recent of3 resultswithin the time period is included. Pathologist Sig nature Potassium 4.3 3.5 - 5.0 mEq/L [facility] L Specimen Plasma Performing Organization Address City/[facility] Phon e Number [facility] DEPARTMENT OF PATHOLOGY AND [address] [place] [address] [phone] [address] [address] Chest Wo Contrast (06/27/2020 1:20 PM CDT)Only the most recent of5 results within the time period is included. Specimen Narrative Performed At EXAMINATION: [facility] CT CHEST WO CONTRAST CLINICAL HISTORY: fever TECHNIQUE: Multiple axial images of the chest were obtained witho ut intravenous contrast. The lack of intravenous contrast reduces the sensitivity of detecting solid organ disease and evaluating vasculatu re. Sagittal and coronal computerized reformatted images were also obtained.Automatic exposure control or iterative reconstruction techniques used to reduce dose. COMPARISON: 06/15/2020 Impression: 1.Stable mild to moderately enlarged mediastinal nodes are again noted, measuring up to 1.4 cm in short axis in the right para tracheal chain. There are also bilateral axillary prominent nodes agai n seen. Extensive postoperative changes with median sternotomy, left atrial clip and mitral valve replacem ent again seen. Bilateral complex pleural effusions containing heterog eneous high density material consistent with subacute hemothorax, left small to moderate and right small in size. 2.Bilateral lung basilar dependent airspace disease ap pear mildly increased with more consolidative features. Superimpos ed pneumonia cannot be excluded. Central airways are patent. Left-s ided eighth posterior rib fracture again noted. Summary: 1.Persistent pleural abnormalities including left-side d small to moderate hemothorax similar to prior study. Degree of dependent airspace disease has increased and may be due to worsening atel ectasis, although superimposed pneumonia cannot be exclude d. . [facility]-[id number] Procedure Note Hm Interface, Radiology Results Incoming - 06/27/2020 1:42 PM CDT EXAMINATION: CT CHEST WO CONTRAST CLINICAL HISTORY: fever TECHNIQUE: Multiple axial images of the chest were obtained without intravenous contrast. The lack of intravenous contrast reduces the sensitivity of detecting solid organ disease and evaluating vasculature. Sagittal and coronal computerized reformatted images were also obtained.Automatic exposure contro l or iterative reconstruction techniques used to reduce dose. COMPARISON: 06/15/2020 Impression: 1.Stable mild to moderately enlarged med iastinal nodes are again noted, measuring up to 1.4 cm in short axis in the right paratracheal chain. There are also bilateral axillary prominent nodes again seen. Extensive postoperative changes with median sternotomy, left atrial clip and mitral valve replacement again seen. Bilateral complex pleural effusions containing heterogeneous high density material consistent with subacute hemothorax, left small to moderate and right small in size. 2.Bilateral lung basilar dependent airsp ivy disease appear mildly increased with more consolidative features. Superimposed pneumonia cannot be excluded. Central airways are patent. Left-sided eighth posterior rib fracture again noted. Summary: 1.Persistent pleural abnormalities inclu ding left-sided small to moderate hemothorax similar to prior study. Degree of dependent airspace disease has increased and may be due to worsening atelectasis, although superimposed pneumonia cannot be exclude d. . [facility]-[id number] Performing Organization Address [facility]/ZIP Code Phon e Number [facility] [address] [place] [address] Smear review (06/27/2020 6:14 AM CDT)Only the most recent of12 resultswithin the time period is included. Pathologist Sig nature Platelet slide review Cayla adequate [facility] Anisocytosis Moderate [facility] Polychromasia Moderate [facility] Ovalocytes Moderate [facility] Specimen Plasma Narrative Performed At K results called to and read back by [place] DEPARTM ENT OF PATHOLOGY AND GENOMIC PADAIN/WT19(name/location) MEDICINE at 06/27/2020 07:42 (date/time) by PR1. Performing Organization Address City/[facility]/ZIP Code Phon e Number [facility] DEPARTMENT OF PATHOLOGY AND [address] [place] [phone] [address] COVID-19 qualitative PCR (06/27/2020 6:00 AM CDT)Only the most recent of4 resultswithin the time period is included. Interpretation Negative results do not prec lude 2019-nCoV infection and should not be used as the sole basis for treatment or other patient management decisions. Negative results must be combined with clinical observations, patient history, and epidemiological [place] information. [facility] COVID-19 qualitative Not-Detected Not-Detecte [place] PCR result d [facility] COVID-19 qualitative See link below for [place] PCR PDF Lab TAO[facility] ReportComment: Case HOSPITAL Number: [id number] Specimen Nasal swab Performing Organization Address City/State/ZIP Code Phon e Number [facility] DEPARTMENT OF PATHOLOGY AND [address] [place] [address] XR Chest 1 Vw Portable (06/26/2020 10:56 PM CDT)Only the most recent of38 resultswithin the time period is included. Specimen Narrative Performed At Examination: XR CHEST 1 VW PORTABLE [facility] Clinical history: "fever" Comparison: 06/23/2020 IMPRESSION: Indwelling support lines/tubes appear ge nerally stable in position. Pulmonary venous congestion and bilateral perihilar an d lower lung pulmonary infiltrates are seen which have worsened fro m the previous study. Blunting of the costophrenic angles is compatib le with minimal pleural fluid or scarring. No pneumothor aces are identified. The cardiomediastinal silhouette is unch anged. The bones of the chest are unchanged. [facility] Procedure Note Hm Interface, Radiology Results Incoming - 06/27/2020 1:26 AM CDT Examination: XR CHEST 1 VW PORTABLE Clinical history: "fever" Comparison: 06/23/2020 IMPRESSION: Indwelling support lines/tubes appear ge nerally stable in position. Pulmonary venous congestion and bilatera l perihilar and lower lung pulmonary infiltrates are seen which have worsened from the previous study. Blunting of the costophrenic angles is compatible with minimal pleural fluid or scarring. No pneumothor aces are identified. The cardiomediastinal silhouette is unch anged. The bones of the chest are unchanged. [facility] Performing Organization Address City/State/ZIP Code Phon e Number [facility] [address] [place] [phone] Phosphorus level (06/26/2020 6:20 AM CDT)Only the most recent of28 results within the time period is included. Pathologist Sig nature Phosphorus 2.6 2.4 - 4.5 mg/dL [facility] Specimen Plasma Performing Organization Address [facility] Phon e Number [facility] DEPARTMENT OF PATHOLOGY AND [address] [place] [phone] Magnesium level (06/26/2020 6:20 AM CDT)Only the most recent of30 resultswithin the time period is included. Pathologist Sig nature Magnesium 2.0 1.6 - 2.4 mg/dL [facility] Specimen Plasma Performing Organization Address [facility] Phon e Number [facility] DEPARTMENT OF PATHOLOGY AND [address] [place] [address] [address] Partial thromboplastin time, activated (06/26/2020 4:40 AM CDT)Only the most recent of65 resultswithin the time period is included. PTT 132.2 (HH) 23.0 - 36.0 [facility] Comment: [facility] PTT therapeutic range for unfractionated heparin is 61.0-112.0 seconds which corresponds to Anti-Xa 0.3-0.7 U/ml. PTT_results called to and read back by Brenda LORENZO/WT1Rika (name/location) at 06/26/2020 07:18 ___ (date/time) by FREDY_. Specimen Blood Performing Organization Address [facility]/ZIP [facility] [place]on e Number [facility] DEPARTMENT OF PATHOLOGY AND [address] [place] [address] [address] Transfuse RBC (06/24/2020 4:26 PM CDT)Only the most recent of5 resultswithin the time period is included.Prepare RBC, 1 Units (06/24/2020 10:30 AM CDT)Only the most recent of6 resultswithin the time period is included. Product name Red Blood Cells [place] -1, Leukored [facility] Unit number [id number] [facility] Product code [id number] [facility] Dispense status Transfused [facility] Blood expiration date [facility] Blood type code 8400 [facility] Blood type AB POSITIVE [facility] Compatibility Compatible [facility] Specimen Plasma Performing Organization Address [facility] Phon e Number [facility] DEPARTMENT OF PATHOLOGY AND [address] [place] [address] [address] Type and screen (06/24/2020 10:30 AM CDT)Only the most recent of6 resultswithin the time period is included. Pathologist Sig nature ABO grouping AB [facility] Rh type POS [facility] Antibody screen (gel) NEG [facility] Specimen Plasma Performing Organization Address [facility] Phon e Number [facility] DEPARTMENT OF PATHOLOGY AND [address] [place] [address] [address] CBC hemogram (06/24/2020 2:45 AM CDT)Only the most recent of11 resultswithin the time period is included. Pathologist Sig nature WBC 5.81 4.50 - 11.00 k/uL [facility] RBC 2.19 (L) 4.40 - 6.00 m/uL [facility] HGB 7.1 (L) 14.0 - 18.0 g/dL [facility] HCT 23.4 (L) 41.0 - 51.0 % [facility] MCV 106.8 (H) 82.0 - 100.0 fL [facility] MCH 32.4 27.0 - 34.0 pg [facility] MCHC 30.3 (L) 31.0 - 37.0 g/dL [facility] RDW - SD 72.3 (H) 37.0 - 55.0 fL [facility] MPV 8.4 (L) 8.8 - 13.2 fL [facility] Platelet count 145 (L) 150 - 400 k/uL [facility] Nucleated RBC 0.00 /100 WBC [facility] Specimen Plasma Performing Organization Address City/[facility] Phon e Number [facility] DEPARTMENT OF PATHOLOGY AND [address] [place] [phone] [facility] [address] [place] [address] Parathyroid hormone (06/24/2020 2:45 AM CDT) Pathologist Sig nature PTH 53 15 - 65 pg/mL [facility] Specimen Blood Performing Organization Address [facility] Phon e Number [facility] DEPARTMENT OF PATHOLOGY AND [address] [place] [phone] [facility] [address] [place] [address] Spirometry, diffusion (06/21/2020 3:26 PM CDT) Pathologist Sig nature FEV1 Pre 1.29 1.95 - 3.47 L [facility] FEV1/FVC % Pre 99.91 67.31 - 88.14 % [facility] FVC Pre 1.29 2.66 - 4.38 L [facility] PEF Pre 4.85 5.14 - 10.00 L/s [facility] FEF 25-75% Pre 2.98 0.87 - 4.14 L/s [facility] FEV1 Predicted 2.71 [facility] FEV1 LLN 1.95 [facility] FEV1 % Pre of Predicted 47.5 % [facility] FVC Predicted 3.52 [facility] FVC LLN 2.66 [facility] FVC % Pre of Predicted 36.6 % [facility] FEV1/FVC % Predicted 78 [facility] FEV1/FVC % LLN 67 [facility] FEV1/FVC % Pre of 128.6 % [facility] Predicted FEF 25-75% Predicted 2.51 [facility] FEF 25-75% LLN 0.87 [facility] FEF 25-75% % Pre of 118.9 % [facility] Predicted PEF Predicted 7.57 [facility] PEF LLN 5.14 [facility] PEF % Pre of Predicted 64.1 % [facility] Specimen Narrative Performed At This result has an attachment that is no t available. Performing Organization Address City/[facility]/ZIP Code Phon e Number [facility] [address] [place] [address] Manual differential (06/21/2020 4:15 AM CDT)Only the most recent of6 results within the time period is included. Manual differential PERFORMED [facility] Neutrophils 71.0 (H) 39.0 - 69.0 % [facility] Lymphocytes 9.0 (L) 25.0 - 45.0 % [facility] Monocytes 13.0 (H) 0.0 - 10.0 % [facility] Eosinophils 4.0 0.0 - 5.0 % [facility] Basophils 0.0 0.0 - 1.0 % [facility] Metamyelocytes 0 % [facility] Myelocytes 3 % [facility] Promyelocytes 0 % [facility] Platelet slide review Cayla adequate [facility] Anisocytosis Moderate [facility] Polychromasia Moderate [facility] Specimen Performing Organization Address [facility] Phon e Number [facility] DEPARTMENT OF PATHOLOGY AND [address] [place] [phone] [facility] [address] [address] Peripheral Block (06/17/2020 10:15 AM CDT) Narrative Performed At Julieta Sevilla MD 10:35 AM Peripheral Block Date/Time: 06/17/2020 10:04 AM Performed by: Joseph Rivera M D Authorized by: Joseph Rivera MD Patient Location: Pre-op Start Time: 06/17/2020 9:54 AM End Time: 06/05/2020 10:04 AM Reason for Block: primary anesthetic Staff: Anesthesiologist: Julieta Sevilla MD Performed by: Anesthesiologist Preprocedure: patient identified, IV padilla cked, site and side verified, risks and benefits discussed, procedure verified, surgical consent complete, patient position confirmed, mo nitors and equipment checked, pre-op evaluation complete, site marked, timeout performed prior to procedure and coagulation status reviewe d Peripheral Nerve Block: Patient Position: Supine and pertin ent anatomy defined Prep: ChloraPrep Monitoring: Blood pressure monitoring, continuous pulse oximetry and heart rate Block Type: Supraclavicular (and muscu locutaneous) Laterality: Left Injection Technique: Single injection Procedures: ultrasound guided Local Infiltration (See MAR for details) : Ropivacaine Needle: Needle Type: Pajunk Needle Gauge: 22 G Needle Length: 10 cm Assessment: Injection Assessment: Visualized needle/local ane sthetic surrounding nerve, visualized pertinent vascular str uctures and nerves, needle tip visualized at all times during injection of medication, intermittent aspiration during local anesthetic admin istration and no symptoms of intraneural/intravenous injection Paresthesia Pain: None Heart Rate Change: No Slow Fractionated Injection: Yes Block outcome: No apparent complica tions, patient comfortable and patient tolerated procedure well Notes: 20 cc 0.5% Ropivacaine and 10 cc 2% Lidocaine used for Supraclavicular block 10cc 0.5% Ropivacaine used for Musculocutaneous nerve block XR Abdomen 1 Vw (06/16/2020 4:03 PM CDT) Specimen Narrative Performed At EXAMINATION: XR ABDOMEN 1 VW [facility] CLINICAL HISTORY: constipation ileus COMPARISON: 06/13/2020 IMPRESSION: 1.Bowel gas pattern nonobstructive. Mild retained stoo l in the colon. The degree of retained stool has slightly increased co mpared to study of 06/13/2020. No free air. 2.Changes at the lung bases as well as osseous structu res stable. Procedure Note Interface, Radiology Results Incoming - 06/16/2020 4:31 PM CDT EXAMINATION: XR ABDOMEN 1 VW CLINICAL HISTORY: constipation ileus COMPARISON: 06/13/2020 IMPRESSION: 1.Bowel gas pattern nonobstructive. Mild retained stool in the colon. The degree of retained stool has slightly increased compared to study of 06/13/2020. No free air. 2.Changes at the lung bases as well as o sseous structures stable. Performing Organization Address City/State/ZIP Code Phon e Number [facility] [address] [place] [address] Troponin (06/14/2020 6:17 PM CDT)Only the most recent of7 resultswithin the time period is included. Troponin 0.034 0.000 - 0.040 [facility] Comment: ng/mL [facility]OSPITAL In patients suspected of having a myocardial infarctio n, along with all other appropriate clinical measures and actions includ ing ECG and other diagnostics as appropriate, measure Ultra TnI at 0 hrs and at 3 hrs. Myocardial infarction VERY LIKELY The 0 hr TnI level is > 0.10 ng/mL Myocardial infarction LIKELY The 0 hr TnI level is > 0.04 ng/mL and 3 hr level is i ncreased or decreased by at least 0.020 ng/mL Myocardial infarction VERY UNLIKELY Both the 0 hr and 3 hr TnI levels <= 0.04 ng/mL(within normal limits) OR 0 hr is > 0.04 ng/mL and 3 hr is increased OR decreased by less than 0.020 ng/mL Specimen Blood Performing Organization Address [facility] Phon e Number [facility] DEPARTMENT OF PATHOLOGY AND [address] [place] [phone] [facility] MEDICINE [address] [address] ECG 12 lead (06/14/2020 3:46 AM CDT)Only the most recent of8 resultswithin the time period is included. Pathologist Sig nature Ventricular rate 103 [facility] Atrial rate 103 [facility] MD interval 192 [facility] QRSD interval 78 [facility] QT interval 346 [facility] QTC interval 453 [facility] P axis 1 64 [facility] QRS axis 1 -6 [facility] T wave axis 81 [facility] EKG impression Sinus [facility] tachycardia-Nonspecific T wave abnormality--Electronic ally Signed By Claribel Solorzano ([id number]) on 06/15/2020 11:46:36 AM Specimen Narrative Performed At This result has an attachment that is no t available. Performing Organization Address [facility] Phon e Number [facility] MUSE [address] [place] [address] [address] Renal Stone Protocol (06/13/2020 9:14 PM CDT) Specimen Narrative Performed At EXAMINATION: CT RENAL STONE PROTOCOL [facility] CLINICAL HISTORY: left flank pain TECHNIQUE: Multiple axial images of the abdomen and pelvis were obtained without intravenous administration of iodinat ed contrast. Sagittal and coronal computerized reformatted images w ere also obtained. The lack of intravenous contrast reduces the sensitivity of detecting solid organ dis ease. CT imaging was performed with iterative reconstruction techniques and/or automated exposure control to reduce rad iation dose. COMPARISON: None. FINDINGS: Lung bases demonstrate extensive atelectasis with like ly interstitial edema. There is diffuse pleural thickening with small complex loculations, larger on the left side with heterogeneou s hyperdense material consistent with blood. There is mild anasarca. Asymmetric soft tissue edema i s demonstrated laterally in the left abdominal wall and flank region. No discrete fluid collection or soft tissue gas. Kidneys are markedly atrophic. No hydron ephrosis. Enlarged liver and distended IVC suggesting chronic co ngestive hepatopathy. Mildly enlarged spleen. Tiny gallstones. Atrophic pancreas. No evidence of bowel obstruction. No sig nificant free fluid or free air. Diffuse vascular calcifications. Aorta i s nondilated. Fixation hardware partly seen in the lef t femur. Multiple enlarged periportal, gastrohepatic, and retro peritoneal lymph nodes are slightly increased, probably r eactive. Stranding overlying the groin regions bilaterally pres umably from recent procedure. There is subcutaneous edema partly seen at the dorsum of the penis. Bones are demineralized. IMPRESSION: 1.Diffuse soft tissue induration in the left lateral a bdominal wall/flank possibly related to celluliti s. No discrete fluid collection. 2.Small complex pleural loculations with component of hemothorax on the left side. 3. Slight progression of abdominal lymphadenopathy. Co nsider follow-up to ensure regression. 4.Other chronic findings as noted above. [id number] Procedure Note Interface, Radiology Results - 06/13/2020 9:56 PM CDT EXAMINATION: CT RENAL STONE PROTOCOL CLINICAL HISTORY: left flank pain TECHNIQUE: Multiple axial images of the abdomen and pelvis were obtained without intravenous administration of iodinated contrast. Sagittal and coronal computerized reformatted images were also obtained. The lack of intravenous contrast reduces the sensitivity of detecting solid organ dis ease. CT imaging was performed with iterative reconstruction techniques and/or automated exposure control to reduce radiation dose. COMPARISON: None. FINDINGS: Lung bases demonstrate extensive atelect asis with likely interstitial edema. There is diffuse pleural thickening with small complex loculations, larger on the left side with heterogeneous hyperdense material consistent with blood. There is mild anasarca. Asymmetric soft tissue edema is demonstrated laterally in the left abdominal wall and flank region. No discrete fluid collection or soft tissue gas. Kidneys are markedly atrophic. No hydron ephrosis. Enlarged liver and distended IVC suggest ing chronic congestive hepatopathy. Mildly enlarged spleen. Tiny gallstones. Atrophic pancreas. No evidence of bowel obstruction. No sig nificant free fluid or free air. Diffuse vascular calcifications. Aorta i s nondilated. Fixation hardware partly seen in the lef t femur. Multiple enlarged periportal, gastrohepa tic, and retroperitoneal lymph nodes are slightly increased, probably reactive. Stranding overlying the groin regions bi laterally presumably from recent procedure. There is subcutaneous edema partly seen at the dorsum of the penis. Bones are demineralized. IMPRESSION: 1.Diffuse soft tissue induration in the left lateral abdominal wall/flank possibly related to cellulitis. No discrete fluid collection. 2.Small complex pleural loculations with component of hemothorax on the left side. 3. Slight progression of abdominal lymph adenopathy. Consider follow-up to ensure regression. 4.Other chronic findings as noted above. [id number] Performing Organization Address City/State/ZIP Code Phon e Number [facility] [address] [place] [address] XR Abdomen 1 Vw Portable (06/13/2020 2:00 PM CDT)Only the most recent of2 resultswithin the time period is included. Specimen Narrative Performed At Study:XR ABDOMEN 1 VW PORTABLE [facility] History:left flank pain COMPARISON:None. IMPRESSION: 3 views of the abdomen. Nonspecific calcific density o verlying the left 11th rib measures 7 mm. This could be a renal stone. N o calcifications on the right. Contrast seen within the colon. No bowel distention. Air-filled small bowel loops are nondistended in the left lower quadrant. Bones are stable. [id number] Procedure Note Interface, Radiology Results Incoming - 06/13/2020 2:32 PM CDT Study:XR ABDOMEN 1 VW PORTABLE History:left flank pain COMPARISON:None. IMPRESSION: 3 views of the abdomen. Nonspecific calc ific density overlying the left 11th rib measures 7 mm. This could be a renal stone. No calcifications on the right. Contrast seen within the colon. No bowel distention. Air-filled small bowel loops are nondistended in the left lower quadrant. Bones are stable. [id number] Performing Organization Address City/State/ZIP Code Phon e Number [facility] [address] [facility]. [place] [id number] duplex hemodialysis avg avf access (06/10/2020 4:14 PM CDT) Specimen Narrative Performed At [facility] AV Carmine t - Fistula Report [address] [facility], [address], [place] [address] Pat.Name: SALVATORE LUGO Pat.ID: [id number] St.Date: 06/10/2020 Refer.MD: JUJU BOLAND MD Exam Time: 2:34:00 PM Study Type:A V Graft - Fistula Height: 67in Weight: 143lb BSA: 1.75 m2 Ag e: 1955,65Y Sex: MALE Sonogr phr: Perez Vi, RVT Pat. Stat.:Inpatient Room: [address] Tape Vol: HV, CPT - 4: 21595 Echo Event ID:[id number] Order ID: [id number] Reason for Study:Patient has bleeding fi stula. History of ESRD on HD, hypertension, S/p mitral valve replaceme nt. Procedures: B-flow imaging, Colorflow, G rayscale/2D, Pulsed wave Doppler Race: B SUMMARY: DUPLEX SCAN OBSERVATIONS: LEFT: There is a brachial artery-brachia l vein AV loop graft seen at the proximal forearm. There is hard and calcified material seen throughout the AV loop graft. Disturbed colorflow and Doppler signals are seen in the feeding brachial artery, throughout the AVG and into the draining brachial vein. Increased ve locity with disturbed colorflow and Doppler signals are seen a t the venous anastomosis (ratio 8.37). Volume flow of brachial ar bon is 462 cc/min. DOPPLER FINDINGS: ARTERY LOCATION PSV (cm/sec) LEFT Brachial Proximal-third 153 Mid-third 145 Distal-third 175.7 125.5 Brachial A-Brachial V AV loop graft Arterial Anastomosis 241.3 (ratio 1.9) Arterial side 154.9 135.2 Mid graft 99.1 Venous side 93.9 111.6 100.7 Venous Anastomosis 843.4 (ratio 8. 37) Brachial vein Antecubital fossa 140 .9 UA-Distal 66.0 UA-Mid 72.1 UA-Proximal 28.0 Axillary vein 45.3 Subclavian vein 41.7 VOLUME FLOW: Brachial 462 cc/min 449.8 cc/min PRELIMINARY FINDINGS: 1. Patent left brachial artery-brachial vein AV loop graft seen at the proximal forearm. 2. <50% stenosis of the arterial anastom osis (ratio 1.90). 3. >50% stenosis of the venous anastomos is (ratio 8.37). 4. Volume flow of left mid brachial sukhwinder ry is 462 cc/min. PHYSICIAN INTERPRETATION: Decreased flow volume Patent left brachial artery-brachial ve in AV loop graft seen at the proximal forearm. >50% stenosis of the venous anastomos is (ratio 8.37). <50% stenosis of the arterial anastomos is (ratio 1.90). FINDINGS: Signed 06/10/2020 07:26 PM August Blankenship MD, RPVI Procedure Note Interface, Radiology Results In - 2019 7:27 PM CDT [facility] AV Graft - Fistula Report [address] [place] [address] Pat.Name: SALVATORE LUGO Pat.I D: [id number] .Date: 06/10/2020 Refer .MD: JUJU BOLAND MD Exam Time: 2:34:00 PM Study Type:AV Graft - Fistula Height: 67in Weigh t: 143lb BSA: 1.75 m2 Age: 804/24/1955,65Y Sex: MALE Sonog rphr: Heriberto Heredia RVT Pat. Stat.:Inpatient Room: [id number] Tape Vol: , CPT - 4: 29197 Echo Event ID:[id number] Order ID: [id number] Reason for Study:Patient has bleeding fi stula. History of ESRD on HD, hypertension, S/p mitral valve replaceme nt. Procedures: B-flow imaging, Colorflow, G rayscale/2D, Pulsed wave Doppler Race: B SUMMARY: DUPLEX SCAN OBSERVATIONS: LEFT: There is a brachial artery-brachia l vein AV loop graft seen at the proximal forearm. There is hard and calcified material seen throughout the AV loop graft. Disturbed colorflow and Doppler signals are seen in the feeding brachial artery, throughout the AVG and into the draining brachial vein. Increased ve locity with disturbed colorflow and Doppler signals are seen a t the venous anastomosis (ratio 8.37). Volume flow of brachial ar bon is 462 cc/min. DOPPLER FINDINGS: ARTERY LOCATION PSV (cm/sec) LEFT Brachial Proximal-third 153 Mid-third 145 Distal-third 175.7 125.5 Brachial A-Brachial V AV loop graft Arterial Anastomosis 24 1.3 (ratio 1.9) Arterial side 154.9 135.2 Mid graft 99.1 Venous side 93.9 111.6 100.7 Venous Anastomosis 843.4 (ratio 8.37 ) Brachial vein Antecubital fossa 140.9 UA-Distal 66.0 UA-Mid 72.1 UA-Proximal 28.0 Axillary vein 45.3 Subclavian vein 41.7 VOLUME FLOW: Brachial 462 cc/min 449.8 cc/min PRELIMINARY FINDINGS: 1. Patent left brachial artery-brachial vein AV loop graft seen at the proximal forearm. 2. <50% stenosis of the arterial anastom osis (ratio 1.90). 3. >50% stenosis of the venous anastomos is (ratio 8.37). 4. Volume flow of left mid brachial sukhwinder ry is 462 cc/min. PHYSICIAN INTERPRETATION: Decreased flow volume Patent left brachial artery-brachial ve in AV loop graft seen at the proximal forearm. >50% stenosis of the venous anastomosi s (ratio 8.37). <50% stenosis of the arterial anastomos is (ratio 1.90). FINDINGS: Signed 06/10/2020 07:26 PM August Blankenship MD, RPVI Performing Organization Address City/[facility]/ZIP Code [facility] Number [facility] [address] [place] [address] Total iron binding capacity (06/10/2020 3:45 AM CDT) Iron level 107 59 - 158 [facility] ug/dL [facility] Iron binding SEE COMMENT 200 - 400 [facility] capacity Comment: ug/dL HOSPITAL Unable to calculate due to too low analyte concentration. % Saturation SEE 20.0 - 40.0 % [facility] COMMENTComment: HOSPITAL Unable to calculate due to low analyte concentration. Specimen Blood Performing Organization Address [facility] Phon e Number [facility] DEPARTMENT OF PATHOLOGY AND [address] [place] [address] [phone] [address] Ferritin level (06/10/2020 3:45 AM CDT) Pathologist Sig [facility] Ferritin level 4,002 (H) 30 - 400 ng/mL [facility] Specimen Blood Performing Organization Address City/[facility]/ZIP [facility] [place] Number [facility] DEPARTMENT OF PATHOLOGY AND [address] [place] [address] [phone] [address] Hemoglobin & hematocrit (06/09/2020 2:54 PM CDT)Only the most recent of5 resultswithin the time period is included. Pathologist [facility] nature HGB 8.0 (L) 14.0 - 18.0 g/dL [facility] 25.7 (L) 41.0 - 51.0 % [facility] Specimen Blood Performing Organization Address City/[facility]/ZIP [facility] Phon e Number [facility] DEPARTMENT OF PATHOLOGY AND [address] [place] [address] [phone] [address] [place] Modified Barium Swallow (06/09/2020 11:39 AM CDT) Specimen Narrative Performed At EXAMINATION: [place] MODIFIED BARIUM SWALLO W HM [facility] CLINICAL HISTORY: Dysphagia unexplai christian COMPARISON: None. Fluoroscopy time: 0.8 minutes FINDINGS: The patient swallowed varying consistencies of barium under direct lateral fluoroscopic evaluation. The study was perform ed in conjunction with speech pathology. IMPRESSION: Normal study. The patient swallowed each consistency w ithout evidence of laryngeal penetration or aspiration. Please refer to Speech Pathology report for further details. [facility]-[id number] Procedure Note Hm Interface, Radiology Results Incoming - 06/09/2020 11:51 AM CDT EXAMINATION: [place] MODIFIED BARIUM SWALLOW CLINICAL HISTORY: Dysphagia unexplaine d COMPARISON: None. Fluoroscopy time: 0.8 minutes FINDINGS: The patient swallowed varying consisten cies of barium under direct lateral fluoroscopic evaluation. The study was performed in conjunction with speech pathology. IMPRESSION: Normal study. The patient swallowed each consistency without evidence of laryngeal penetration or aspiration. Please refer to Speech Pathology report for further details. [facility]-[id number] Performing Organization Address City/State/ZIP Code Phon e Number [facility] [address] [place] [address] Ionized calcium (06/09/2020 3:02 AM CDT)Only the most recent of3 resultswithin the time period is included. Pathologist Sig nature pH 7.43 [facility] Ionized calcium 1.20 1.11 - 1.32 mmol/L [facility] Specimen Blood Performing Organization Address City/[facility]/[place]IP [facility] [place] Number [facility] DEPARTMENT OF PATHOLOGY AND [address] [place] [address] [phone] [address] Hepatitis B surface antigen (06/08/2020 10:47 AM CDT)Only the most recent of2 resultswithin the time period is included. Pathologist Sig nature Hepatitis B surface Non-reactive Non-reactive [facility] Specimen Blood Performing Organization Address City/[facility] Phon e Number [facility] DEPARTMENT OF PATHOLOGY AND [address] [place] [address] [phone] [address] Arterial blood gas (06/07/2020 1:35 AM CDT)Only the most recent of8 results within the time period is included. Pathologist Sig nature pH, arterial 7.49 (H) 7.35 - 7.45 [facility] pCO2, arterial 39 35 - 45 mmHg [facility] pO2, arterial 219 (H) 80 - 90 mmHg [facility] Bicarbonate, 29.0 (H) 21.0 - 28.0 [facility] mmol/L HOSPITAL Base excess, 6 (H) -2 - 2 mEq/L [facility] O2 saturation, 99 95 - 100 % [facility] Specimen Blood Performing Organization Address City/State/ZIP Code Phon e Number [facility] DEPARTMENT OF PATHOLOGY AND [address] [place] [phone] [facility] MEDICINE [address] [address] Bronchoscopy (06/06/2020 1:42 PM CDT) Narrative Performed At Jam Hoskins MD 06/06/2020 1:46 PM Bronchoscopy Date/Time: 06/06/2020 1:43 PM Performed by: Jam Hoskins MD Authorized by: Juju Boland MD Consent: Consent obtained: Verbal Consent given by: Patient Alternatives discussed: No treatmen t Lindsay protocol: Procedure explained and questions ans wered to patient or proxy's satisfaction: yes Relevant documents present and verifi ed: yes Test results available and properly l abeled: yes Imaging studies available: yes Required blood products, implants, de vices, and special equipment available: yes Site/side marked: yes Immediately prior to procedure, a spenser e out was called: yes Patient identity confirmed: Verball y with patient and arm band Pre-procedure details: Indication: Hypoxemic respiratory f ailure Scope type: Flexible bronchoscope Airway: Intubated Monitoring devices: Pulse oximetry and NIPB Sedation: Sedation Type: Anxiolysis and Narco tic Narcotic(s) used:: Dilaudid Findings: Findings: Normal Secretion consistency: Thin Secretion amount: Small Washings: Washings: Right Sample sent for: Gram stain, viral culture and routine culture Post-procedure details: Patient tolerance of procedure: Patie nt tolerated the procedure well with no immediate complications Attending physician: Dr. Sierra Comments: Scant mucus retrieved for cultures. Airways diffus miky erythematous Fungus culture (06/06/2020 12:30 PM CDT)Only the most recent of4 resultswithin the time period is included. Fungus culture No growth after 4 weeks of incubation. MIRELLA [facility] isolate Comment: HOSPITAL Specimen Information Specimen Source: Bronchial alveolar lavage Specimen Site: RLL (Right Lower Lobe) Specimen Bronchial alveolar lavage - RLL (right l ower lobe) Performing Organization Address City/State/ZIP Code Phon e Number [facility] DEPARTMENT OF PATHOLOGY AND [address] [place] [address] GENOMIC MEDICINE [address] [address] Respiratory culture (06/06/2020 11:30 AM CDT) Respiratory culture No normal oral pete isolated. (A) VU isolate Comment: [facility] Specimen Information HOSPITAL Specimen Source: Bronchial alveolar lavage Specimen Site: RLL (Right Lower Lobe) Respiratory culture Klebsiella pneumoniae VU isolate Occasional [facility] susceptibility to follow HOSPITAL (A) Specimen Bronchial alveolar lavage - RLL (right l ower lobe) Organism Antibiotic Method Susceptibility Klebsiella pneumoniae Ampicillin OMAR 16 mcg/mL: Resistant Klebsiella pneumoniae Amoxicillin/Clavulanate OMAR <= 4/2 mcg/mL: Susceptible Klebsiella pneumoniae Amikacin OMAR <=8 mcg/mL : Susceptible Klebsiella pneumoniae Aztreonam OMAR <=2 mcg/mL : Susceptible Klebsiella pneumoniae Ceftazidime OMAR <=2 mcg/mL : Susceptible Klebsiella pneumoniae Ciprofloxacin OMAR <=0.25 mcg /mL: Susceptible Klebsiella pneumoniae Ceftriaxone OMAR <=1 mcg/mL : Susceptible Klebsiella pneumoniae Cefuroxime Sodium OMAR <=4 mcg/ mL: Susceptible Klebsiella pneumoniae Cefazolin OMAR <=1 mcg/mL : Susceptible Klebsiella pneumoniae Cefepime OMAR <=1 mcg/mL : Susceptible Klebsiella pneumoniae Cefoxitin OMAR <=4 mcg/mL : Susceptible Klebsiella pneumoniae Gentamicin OMAR <=2 mcg/mL : Susceptible Klebsiella pneumoniae Levofloxacin OMAR <=0.5 mcg/ mL: Susceptible Klebsiella pneumoniae Meropenem OMAR <=0.5 mcg/ mL: Susceptible Klebsiella pneumoniae Tobramycin OMAR <=2 mcg/mL : Susceptible Klebsiella pneumoniae Ampicillin/Sulbactam OMAR 4/2 m cg/mL: Susceptible Klebsiella pneumoniae Trimethoprim/Sulfamethoxazol OMAR <=0.5/9.5 mcg/mL: e Susceptible Klebsiella pneumoniae Tetracycline OMAR <=2 mcg/mL : Susceptible Klebsiella pneumoniae Piperacillin/Tazobactam OMAR 4/ 4 mcg/mL: Susceptible Klebsiella pneumoniae Ertapenem OMAR <=0.25 mcg /mL: Susceptible Klebsiella pneumoniae Tigecycline OMAR <=1 mcg/mL : Susceptible Performing Organization Address [facility] Phon e Number [facility] DEPARTMENT OF PATHOLOGY AND [address] [place] [address] [phone] [address] Fungus smear (06/06/2020 11:30 AM CDT)Only the most recent of4 resultswithin the time period is included. Pathologist Sig nature Fungus smear No fungi observed. [facility]U [facility] Comment: HOSPITAL Specimen Information Specimen Source: Bronchial alveolar lavage Specimen Site: RLL (Right Lower Lobe) Specimen Bronchial alveolar lavage - RLL (right l ower lobe) Performing Organization Address [facility] Phon e Number [facility] DEPARTMENT OF PATHOLOGY AND [address] [place] [address] [phone] [address] Gram stain (06/06/2020 11:30 AM CDT)Only the most recent of6 resultswithin the time period is included. Gram stain isolate Moderate WBC's [facility] No organisms seen HOSPITAL Comment: Specimen Information Specimen Source: Bronchial alveolar lavage Specimen Site: RLL (Right Lower Lobe) Specimen Bronchial alveolar lavage - RLL (right l ower lobe) Performing Organization Address [facility] Phon e Number [facility] DEPARTMENT OF PATHOLOGY AND [address] [place] [address] [phone] [address] AFB stain (06/06/2020 11:30 AM CDT)Only the most recent of3 resultswithin the time period is included. Pathologist Sig nature AFB stain No acid fast bacilli (AFB) seen. [facility]U [facility] Comment: HOSPITAL Specimen Information Specimen Source: Bronchial alveolar lavage Specimen Site: RLL (Right Lower Lobe) Specimen Bronchial alveolar lavage - RLL (right l ower lobe) Performing Organization Address [facility] Phon e Number [facility] DEPARTMENT OF PATHOLOGY AND [address] [place] [address] [phone] [address] Anti Xa, unfractionated (06/05/2020 9:25 AM CDT)Only the most recent of14 resultswithin the time period is included. Anti Xa, 0.43Comment: 0.30 - 0.70 [place] unfractionated Therapeutic Range: U/mL [facility] 0.30 - 0.70 U/mL HOSPITAL Specimen Blood Performing Organization Address [facility] Phon e Number [facility] DEPARTMENT OF PATHOLOGY AND [address] [place] [address] [address] Lactic acid level (06/04/2020 3:23 AM CDT) Pathologist Sig nature Lactic acid 0.8 0.5 - 2.2 mmol/L [facility] Spec[facility] Blood Performing Organization Address [facility] Phon e Number [facility] DEPARTMENT OF PATHOLOGY AND [address] [place] [address] [phone] [address] Bilirubin direct (06/03/2020 2:48 AM CDT)Only the most recent of2 resultswithin the time period is included. Pathologist Sig nature Bilirubin direct 0.7 (H) 0.0 - 0.3 mg/dL [facility] Specimen Performing Organization Address [facility] Phon e Number [facility] DEPARTMENT OF PATHOLOGY AND [address] [place] [address] [address] Comprehensive metabolic panel (06/03/2020 2:48 AM CDT)Only the most recent of3 resultswithin the time period is included. Sodium 141 135 - 148 [facility] mEq/L [facility] Potassium 4.7 3.5 - 5.0 [facility] mEq/L [facility] Chloride 102 98 - 112 [facility] mEq/L HOSPITAL CO2 25 24 - 31 mEq/L [facility] Anion gap 14@ANIO 7 - 15 mEq/L [facility] BUN 14 8 - 23 mg/dL [facility] Creatinine 3.38 (H) 0.70 - 1.20 [facility] mg/dL HOSPITAL Glucose 129 (H) 65 - 99 mg/dL [facility] Calcium 9.5 8.8 - 10.2 [facility] mg/dL HOSPITAL Protein 7.6 6.3 - 8.3 [facility] Comment: g/dL [facility] [place] 4.6-7.0 g/dL 1 week 4.4-7.6 g/dL 7 months-1year 5.1-7.3 g/dL 1-2 years 5.6-7.5 g/dL >3 years 6.0-8.0 g/dL 18-150 6.3-8.3 g/dL Albumin 2.9 (L) 3.5 - 5.0 [facility] g/dL [facility] A/G ratio 0.6 (L) 0.7 - 3.8 [facility] Alkaline phosphatase 50 40 - 129 U/L [facility] AST 33 10 - 50 U/L [facility] ALT 8 5 - 50 U/L [facility] Total bilirubin 1.0 0.0 - 1.2 [facility] mg/dL [facility] Specimen Blood Performing Organization Address City/State/ZIP Code Phon e Number [facility] DEPARTMENT OF PATHOLOGY AND [address] [place] [address] [phone] GENOMIC MEDICINE [place] [id number] [place] [address] Central Line Insertion (06/02/2020 10:36 PM CDT) Narrative Performed At Tasneem Rainey ACNP 06/02/2020 10: 37 PM Central Line Insertion Performed by: Tasneem Rainey ACNP Authorized by: Tasneem Rainey ACNP Consent: Consent obtained: Emergent situatio n Lindsay protocol: Patient identity confirmed: Provide d demographic data and hospital-assigned identification number Pre-procedure details: Hand hygiene: Hand hygiene performed prior to insertion Sterile barrier technique: All elemen ts of maximal sterile technique followed Skin preparation: 2% chlorhexidine Skin preparation agent: Skin preparation agent comp letely dried prior to procedure Sedation: Sedation Type: Systemic Systemic used:: Propofol Anesthesia (see MAR for exact dosages): Anesthesia method: Local infiltrati on Local anesthetic: Lidocaine 1% w/o epi Procedure details: Catheter type: Double lumen Catheter size: 7 Fr Catheter site: internal jugular vein Catheter Site Laterality: Right Patient position: Flat Ultrasound guidance: yes Ultrasound guidance: images not saved electronically Sterile ultrasound techniques: Sterile gel and ster ile probe covers were used Number of attempts: 1 Successful placement: yes Post-procedure details: Post-procedure: Dressing applied an d line sutured Assessment: Blood return through al l ports and free fluid flow Patient tolerance of procedure: Katie erated well, no immediate complications Ionized calcium, arterial (06/02/2020 9:33 PM CDT)Only the most recent of4 resultswithin the time period is included. Pathologist Sig nature Ionized calcium, 1.19 1.11 - 1.32 [facility] arterial mmol/L HOSPITAL Specimen Blood Performing Organization Address [facility] Phon e Number [facility] DEPARTMENT OF PATHOLOGY AND [address] [place] [address] Fibrinogen (06/02/2020 9:33 PM CDT)Only the most recent of3 resultswithin the time period is included. Pathologist Sig nature Fibrinogen 669 (H) 200 - 450 mg/dL [facility] Specimen Blood Performing Organization Address [facility] Phon e Number [facility] DEPARTMENT OF PATHOLOGY AND [address] [place] [address] Sodium level, syringe (06/02/2020 8:28 PM CDT)Only the most recent of3 results within the time period is included. Pathologist Sig nature Sodium, syringe 139 135 - 148 mEq/L [facility] Specimen Blood Performing Organization Address [facility] Phon e Number [facility] DEPARTMENT OF PATHOLOGY AND [address] [place] [address] [place] [address] Potassium, syringe (06/02/2020 8:28 PM CDT)Only the most recent of3 results within the time period is included. Pathologist Sig nature Potassium, syringe 4.3 3.5 - 5.0 mEq/L [facility] Specimen Blood Performing Organization Address [facility] Phon e Number [facility] DEPARTMENT OF PATHOLOGY AND [address] [place] [address] [phone] [address] Lactic acid, syringe (06/02/2020 8:28 PM CDT)Only the most recent of2 results within the time period is included. Pathologist Sig nature Lactic acid, syringe 0.7 0.5 - 2.2 mmol/L [facility] Specimen Blood Performing Organization Address City/[facility]/ZIP [facility] [place] Number [facility] DEPARTMENT OF PATHOLOGY AND [address] [place] [address] [phone] [address] Hemoglobin, syringe (06/02/2020 8:28 PM CDT)Only the most recent of3 results within the time period is included. Pathologist Sig nature Hemoglobin, syringe 10.0 (L) 14.0 - 18.0 g/dL [facility] Specimen Blood Performing Organization Address City/[facility]/[place]IP [facility] [place] e Number [facility] DEPARTMENT OF PATHOLOGY AND [address] [place] [address] [phone] [address] Glucose level, syringe (06/02/2020 8:28 PM CDT)Only the most recent of3 results within the time period is included. Pathologist Sig nature Glucose, syringe 106 (H) 65 - 99 mg/dL [facility] Specimen Blood Performing Organization Address [facility] Phon e Number [facility] DEPARTMENT OF PATHOLOGY AND [address] [place] [address] [phone] [address] Arterial blood gas, corrected (06/02/2020 8:28 PM CDT)Only the most recent of3 resultswithin the time period is included. Pathologist Sig nature pH, arterial 7.44 7.35 - 7.45 [facility] pCO2, arterial 42 35 - 45 mmHg [facility] pO2, arterial 264 (H) 80 - 90 mmHg [facility] Temperature, Celsius 37.6 Degrees C [facility] O2 saturation, 97 95 - 100 % [facility] arterial HOSPITAL pH, arterial 7.43 [facility] corrected HOSPITAL pCO2, arterial 44 mmHg [facility] corrected HOSPITAL pO2, arterial 266 mmHg [facility] Base excess, arterial 4 (H) -2 - 2 mEq/L [facility] Specimen Blood Performing Organization Address City/[facility]/ZIP [facility] [place] Phon e Number [facility] DEPARTMENT OF PATHOLOGY AND [address] [place] [address] [phone] [address] Platelet count (06/02/2020 6:55 PM CDT) Pathologist Sig nature Platelet count 202 150 - 400 k/uL [facility] Specimen Performing Organization Address City/[facility] Phon e Number [facility] DEPARTMENT OF PATHOLOGY AND [address] [place] [address] [phone] [address] Rotational thromboelastometry, FIBTEM (06/02/2020 6:23 PM CDT) Pathologist Sig nature A20, FIBTEM 41 (H) 7 - 24 mm [facility] Maximum clot firmness, 43 (H) 7 - 24 mm [facility] Specimen Narrative Performed At PT,FIBR results called to and read back by [facility] DEPART ENT OF PATHOLOGY AND GENOMIC /SHELLIUrbita MEDICINE at 06/02/2020 18:52 by MR. Performing Organization Address City/[facility] Phon e Number [facility] DEPARTMENT OF PATHOLOGY AND [address] [place] [address] [phone] [address] Rotational thromboelastometry, HEPTM (06/02/2020 6:23 PM CDT) Clotting time, 175 sec [facility] Clot formation 63 sec [facility] time, [facility] Alpha angle, HEPTM 78 deg [facility] A20, HEPTM 72 mm [facility] Maximum clot 73 mm [facility] firmness, [facility] Maximum lysis, 3Comment: Test % [facility] stopped early; this HOSPITAL is an estimated value. LI30, HEPTM 100 % [facility] Comment: HOSPITAL HEPTEM should be compared to INTE. INTEM-HEPTEM results allow assessment of hemostasis without the overlaying heparin effect. Specimen Narrative Performed At PT,FIBR results called to and read back by [facility] DEPARTM ENT OF PATHOLOGY AND GENOMIC /[email or web address] MEDICINE at 06/02/2020 18:52 by MR. Performing Organization Address City/[facility]/ZIP Code Phon e Number [facility] DEPARTMENT OF PATHOLOGY AND [address] [place] [address] [phone] [address] Rotational thromboelastometry, EXTEM (06/02/2020 6:23 PM CDT) Clotting time, 99 (H) 43 - 82 sec [place] [facility] Clot formation 49 48 - 127 sec [facility] time, [facility] Alpha angle, EXTEM 80 65 - 80 deg [place] [facility] A20, EXTEM 70 50 - 70 mm [facility]OSPITAL Maximum clot 72 (H) 52 - 70 mm [place] [facility] firmness, [facility] Maximum lysis, 2Comment: Test % [place] [facility] stopped early; HOSPITAL this is an estimated value. LI30, EXTEM 100 % [facility] HOSPITAL Specimen Narrative Performed At PT,FIBR results called to and read back by [facility] DEPART ENT OF PATHOLOGY AND GENOMIC /[employer] [facility] at 06/02/2020 18:52 by MR. Performing Organization Address City/[facility] Code Phon e Number [facility] DEPARTMENT OF PATHOLOGY AND [address] [place], [place] [phone] [address] [address] Rotational thromboelastometry, INTEM (06/02/2020 6:23 PM CDT) Clotting time, 178 122 - 208 sec [facility] Clot formation 76 45 - 110 sec [place] [facility] time, [facility] Alpha angle, INTEM 75 70 - 81 deg [facility] A20, INTEM 72 51 - 72 mm [facility] HOSPITAL Maximum clot 73 (H) 51 - 72 mm [facility] firmness, INTEM [facility] Maximum lysis, 2Comment: Test % [facility] INT[facility] stopped early; HOSPITAL this is an estimated value. LI30, INTEM 100 % [facility] Specimen Narrative Performed At PT,FIBR results called to and read back by [facility] DEPART ENT OF PATHOLOGY AND GENOMIC /WTORUrbita MEDICINE at 06/02/2020 18:52 by MR. Performing Organization Address City/State/ZIP Code Phon e Number [facility] DEPARTMENT OF PATHOLOGY AND [address] [place] [phone] [address] Surgical pathology request (06/02/2020 3:42 PM CDT) [facility] DEPARTMENT OF PATHOLOGY AND GENOMIC MEDICINE Surgical pathology See link below [facility] DEPARTMENT OF report for PDF Lab PATHOLOGY AND Report GENOMIC MEDICINE Result status This is Final [facility] DEPARTMENT OF Report for PATHOLOGY AND [id number] GENOMIC MEDICINE Specimen Performing Organization Address City/[facility] Phon e Number [facility] DEPARTMENT OF PATHOLOGY AND [address] [place] [phone] GENOMIC MEDICINE Aerobic culture (06/02/2020 3:41 PM CDT)Only the most recent of2 resultswithin the time period is included. Aerobic culture No growth after 3 days. [facility] IST isolate Comment: HOSPITAL Specimen Information Specimen Source: Pleural fluid Specimen Site: Lung: LEFT PLEURAL FLUID Specimen Pleural fluid - Lung Performing Organization Address City/[facility] Phon e Number [facility] DEPARTMENT OF PATHOLOGY AND [address] [place] [address] [address] Anaerobic culture (06/02/2020 3:41 PM CDT)Only the most recent of3 results within the time period is included. Anaerobic culture No anaerobic organisms isolated. CLAIRE GAMING isolate Comment: HOSPITAL Specimen Information Specimen Source: Pleural fluid Specimen Site: Lung: LEFT PLEURAL FLUID Specimen Pleural fluid - Lung Performing Organization Address City/[facility] Phon e Number [facility] DEPARTMENT OF PATHOLOGY AND [address] [place] [address] [phone] [address] Tissue culture (06/02/2020 3:40 PM CDT) Tissue culture No growth after 3 days. [facility] isolate Comment: HOSPITAL Specimen Information Specimen Source: Tissue Specimen Site: Lung: LEFT PLEURAL RIND Specimen Tissue Performing Organization Address City/[facility]/[place]IP [facility] [place] e Number [facility] DEPARTMENT OF PATHOLOGY AND [address] [place] [address] [phone] [address] Airway (06/02/2020 2:46 PM CDT) Narrative Performed At Harley Massey MD 2019 2:47 PM Airway Date/Time: 06/02/2020 2:46 PM Performed by: Harley Massey MD Authorized by: Becky Laird MD Location: OR Urgency: Elective Difficult Airway: No Resident/FILBERT GROWER/AA: Yossi Massey am, MD Performed by: resident/FILBERT GROWER/AA Preoxygenated with 100% O2: Yes C-spine Precautions Maintained Throughou t: Yes Mask Ventilation: Assisted mask Final Airway Type: Endotracheal airway Final Endotracheal Airway: ETT - doubl e lumen left Cuffed: Yes Technique Used: Direct laryngoscopy Devices/Methods Used in Placement: Int ubating stylet Insertion Site: Oral Blade Type: Mable Laryngoscope Blade/Videolaryngoscope Ashok de Size: 3 ETT Double Lumen (fr): 39 Cuff at minimum occlusion pressure: Yes Measured from: Gums ETT to Gums (cm): 31 Placement Verified by: CO2 detection, direct visualiza tion, equal breath sounds and fiber optic visualization Laryngoscopic view: Grade I - full vie w of glottis Rapid Sequence Induction (RSI): No Modified RSI: No Number of Attempts at Approach: 1 Arterial line (06/02/2020 2:44 PM CDT) Narrative Performed At Harley Massey MD 2019 2:45 PM Arterial line Performed by: Harley Massey MD Authorized by: Becky Laird MD Patient Location: OR Start Time: 06/02/2020 2:44 PM End Time: 06/02/2020 2:44 PM Staff: Resident/SASHA/AA: Halrey Massey MD Performed by: Resident/FILBERT GROWER/MITCHELL Pre-procedure: patient identified, IV ch ecked, site and side verified, risks and benefits discussed, procedure verified, surgical consent complete, patient position confirmed, mo nitors and equipment checked, pre-op evaluation complete and timeout p erformed prior to procedure MSBT: antiseptic used, all elements of maximal sterile barrier technique followed, hand hygiene performed, cap/go wn used by other personnel and solutions labeled Indications: Indications: multiple ABGs and hemody namic monitoring Anesthesia: Anesthesia: General Procedure Details: Arterial Line placement: Placed pos t induction Line placement site: Radial Line placement side: Right Arterial line gauge: 20 G Number of attempts: 1 Ultrasound guidance used: No Post-procedure: Post-procedure: Sterile dressing ap plied Post procedure circulation, sensation, movement: Unable to assess Cytology (non-gynecological) request (06/02/2020 9:52 AM CDT) [facility] DEPARTMENT OF PATHOLOGY AND GENOMIC MEDICINE Cytology See link below [facility] DEPARTMENT OF (non-gynecological) for PDF Lab PATHOLOGY AND report Report GENOMIC MEDICINE Result status This is Final [facility] DEPARTMENT OF Report for PATHOLOGY AND [id number] GENOMIC MEDICINE Specimen Performing Organization Address City/[facility] Phon e Number [facility] DEPARTMENT OF PATHOLOGY AND [address] [place], [place] [address] [facility] Hepatic function panel (06/02/2020 3:46 AM CDT) Albumin 2.8 (L) 3.5 - 5.0 [facility] g/dL [facility] Total bilirubin 1.0 0.0 - 1.2 [facility] mg/dL [facility] Bilirubin direct 0.5 (H) 0.0 - 0.3 [facility] mg/dL [facility] Alkaline phosphatase 63 40 - 129 U/L [facility] Protein 8.3 6.3 - 8.3 [facility] Comment: g/dL HOSPITAL - 4.6-7.0 g/dL 1 week 4.4-7.6 g/dL 7 months-1year 5.1-7.3 g/dL 1-2 years 5.6-7.5 g/dL >3 years 6.0-8.0 g/dL 18-150 6.3-8.3 g/dL ALT 9 5 - 50 U/L [facility] AST 29 10 - 50 U/L [facility] Specimen Blood Performing Organization Address [facility] Phon e Number [facility] DEPARTMENT OF PATHOLOGY AND [address] [place] [phone] [facility] [address] [place] [address] Echocardiogram transesophageal (06/01/2020 1:14 PM CDT) Specimen Narrative Performed At [facility] ophageal Echo Report [address], [place] [id number] Pat.Name: PARISH SALVATORE Pat.ID: [id number] St.Date: 06/01/2020 Exam Time: 11:38:00 AM Study Type:SEGUNDO Height: 67in Weight: 135lb BSA: 1.71 m2 Age: 804/24/1955,65Y Sex: MALE Sonogrphr: Clayton Carbajal MD [facility]. Stat.:[facility] sujata Study Status:Final Echo Event ID:[id number] Order ID: [id number] Reason for Study:Mitral Valve Mechanical Prosthetic Valve Dysfunction History / Clinical:Chest Pain, Chronic R enal Failure, Shortness of Breath Procedures: Transesophageal Echo with Co lorflow Doppler Race: B SUMMARY: There are very small mobile echo dens ities around the prosthesis , consistent with sutures No evidence o f endocarditis. Mechanical bileaflet prosthetic mitral v alve. There is no significant mitral prosthetic stenosis There are mobile echo densities in the L V, consistent with remenant chordae tendineae. Suggestive of very small perivalvular mitral regurgitation in addition to the " physiological" MR FINDINGS: SEGUNDO: The attending natural resources technician performed the SEGUNDO procedure and was present for the entir e duration. The patient was counseled and an informed consent was o btained. Topical and intravenous anesthesia was administered . The esophagus was intubated without difficu lty. The probe was passed to the gastric fundus and all standard echocar diographic views were obtained. The patient katie erated the procedure well. LV: LV size is normal. LV EF is mildly depressed. Overall wall motion is mildly hypokinetic. Septal mo tion is paradoxical secondary to LBBB or conduction abnorma lity. Estimated EF is 45-49%. RV: RV size is moderately enlar ged. RV systolic function is moderately depressed. LA: LA volume is enlarged. KRYSTEN not seen RA: RA volume is enlarged. A Eu stachian valve and/or Chiari network is seen. This is a normal variant. AO: Aortic root diameter is nor mal in size. Moderate atherosclerotic changes seen in the aor tic arch, ascending and descending aorta. TONY: No pericardial effusion. AV: No structural AV abnormalit ies noted. MV: Mechanical prosthetic veda l valve. There are mobile echo densities in the LV, cons istent with remanent chordae tendineae. Suggestive of very small perivalvular mitral regurgitation in addition to the " physiological" MR Estimated mean mitral valve gradient is at least 2.3 mmHg at a heart rate of 69 b/min (suboptimal CW signal). Normal velocity and gradient acr oss the prosthesis. PV: No structural PV abnormalit ies noted. TV: No structural TV abnormalit ies noted. Mild to moderate tricuspid regurgitation SEGUNDO: Anesthesia: Per Anesthesia A SA Class: 3 Physician: Chey Pappas M.D. As sistant: Clayton Carbajal MD Pre SEGUNDO BP HR Post SEGUNDO BP HR 142/57 772 132/58 67 Meds: Viscous xylocaine, Cetacai ne spray to oropharynx, Per Anesthesia Complications: None Condition: Good MEASUREMENTS: DOPPLER MV Forward Flow MV pkVel 185.2 cm/s MV Mean G 4.1 mmHg MV pkPG 13.7 mmHg MV TVI 38.4 cm Signed 06/01/2020 03:27 PM Chey Pappas M.D. Procedure Note Interface, Radiology Results In - 2019 3:28 PM CDT Transesophageal Ec ho Report [address], [place], [place] [address] Melissa.Name: SALVATORE LUGO PatDafneI D: [id number] .Date: 06/01/2020 Exam Time: 11:38:00 AM Study Type:SEGUNDO Britney t: 67in Weight: 135lb BSA: 1.71 m2 Age: 804/24/1955,65Y Sex: MALE Sonogrphr: Clayton Carbajal MD [facility]. Stat.:Inpatient Study Status:Final Echo Event ID:[id number] Order ID: [id number] Reason for Study:Mitral Valve Mechanical Prosthetic Valve Dysfunction History / Clinical:Chest Pain, Chronic R enal Failure, Shortness of Breath Procedures: Transesophageal Echo with Co lorflow Doppler Race: B SUMMARY: There are very small mobile echo densi ties around the prosthesis , consistent with sutures No evidence of endocarditis. Mechanical bileaflet prosthetic mitral v alve. There is no significant mitral prosthetic stenosis There are mobile echo densities in the L V, consistent with remenant chordae tendineae. Suggestive of very small perivalvular m itral regurgitation in addition to the " physiological" MR FINDINGS: SEGUNDO: The attending natural resources technician per formed the SEGUNDO procedure and [facility] The patient was counseled and an informed cons ent was obtained. Topical and intravenous anesthesia was adm inistered. The esophagus was intubated without difficulty. The probe was passed to the gastric fundus and all standar d echocardiographic views were obtained. The patient tolerate d the procedure well. LV: LV size is normal. LV EF is mi ldly depressed. Overall wall motion is mildly hypokinetic. Septal motion is paradoxical secondary to LBBB or conductio n abnormality. Estimated EF is 45-49%. RV: RV size is moderately enlarged . RV systolic function is moderately depressed. LA: LA volume is enlarged. KRYSTEN not seen RA: RA volume is enlarged. A Eusta chian valve and/or Chiari network is seen. This is a nor mal variant. AO: Aortic root diameter is normal in size. Moderate atherosclerotic changes seen i n the aortic arch, ascending and descending aorta. TONY: No pericardial effusion. AV: No structural AV abnormalities noted. MV: Mechanical prosthetic mitral v alve. There are mobile echo densities in the LV, consisten t with remanent chordae tendineae. Suggestive of very small perivalvular mitral regurgitation in addition to t he " physiological" MR Estimated mean mitral valve gr adient is at least 2.3 mmHg at a heart rate of 69 b/min (subo ptimal CW signal). Normal velocity and gradient across t he prosthesis. PV: No structural PV abnormalities noted. TV: No structural TV abnormalities noted. Mild to moderate tricuspid regurgitation SEGUNDO: Anesthesia: Per Anesthesia ASA C lass: 3 Physician: Chey Pappas M.D. Jorge tant: Clayton Carbajal MD Pre SEGUNDO BP HR Post SEGUNDO BP HR 142/57 772 132/58 67 Meds: Viscous xylocaine, Cetacaine spray to oropharynx, Per Anesthesia Complications: None Condition: Good MEASUREMENTS: DOPPLER MV Forward Flow MV pkVel 185.2 cm/s MV M keily G 4.1 mmHg MV pkPG 13.7 mmHg MV T 38.4 cm Signed 06/01/2020 03:27 PM Chey Pappas M.D. Performing Organization Address City/State/ZIP Code Phon e Number [facility] [address] [place] [address] Transthoracic Echocardiogram Complete, (w Contrast, Strain and 3D if needed) (05/29/2020 9:50 AM CDT) Specimen Narrative Performed At [facility] Echo cardiography Report [address] [facility], [address] [address] Pat.Name: SALVATORE LUGO Pat.ID: [id number] .Date: 05/29/2020 Refer.MD: JUJU BOLAND MD Exam Time: 8:40:00 AM Study Type:R outine Echo Height: 67in Weight: 150lb BSA: 1.79 m2 Ag e: 1955,65Y Sex: MALE BP: 129/70 HR: 88 bpm Sonogr phr: Margarita Merchant RDCS Pat. Stat.:Inpatient Room: [facility] Study Status:Final Echo Event ID:[id number] Order ID: [id number] Reason for Study:Chest pain, cardiac petra ology suspected History / Clinical:Chest Pain, Chronic R enal Failure, Shortness of Breath Procedures: 2D Echo, Colorflow Doppler, Portable, Intravenous Definity Contrast SUMMARY: Moderately dilated LV with mildly depres sed function. RV is dilated with depressed function. Mechanical prosthetic mitral valve. Mode rate to severely elevated gradient across the prosthetic valve (10 mm Hg at a HR 87 b/min). MV TVI/LVOT TVI = 2.8. 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 However, pressure half time is normal, suggesting an element of PPM. Mild to moderate MR based on v olumetric assessment (RV 21 cc, RF 28%). Possible torn chordae visualized in the left ventricle Estimated PA systolic pressure is 69 mmH g, assuming a mean RAP of 20 mmHg. Pleural effusion is present. Recommend SEGUNDO for further evaluation of prosthetic valve function and presence of MR/paravalvular MR. FINDINGS: LV: LV size is moderately enlar ged. Biplane LV ejection fraction= 45% LV EF is mi ldly depressed. Septal motion is paradoxical. Global hypok inesis. RV: RV size is enlarged. RV sys tolic function is depressed. LA: LA volume is moderately enl arged. RA: RA volume is enlarged. AO: Aortic root diameter is nor mal. TONY: No pericardial effusion. PLE: Pleural effusion is present . AV: A focal echodensity is note d on the NCC. This likely represent a focal calcifi cation. Clinical correlation recommended. MV: Mechanical prosthetic veda l valve. Calcified papillary muscle. Possible torn cho rdae visualized in the left ventricle Moderate to severely elevated gradient across the prosthetic valve (10 mm H g at a HR 87 b/min). MV TVI/LVOT TVI = 2.8. These findings are suggestiv e of prosthetic valve stenosis. However, pressure half time i s normal, suggesting an element of PPM. Mild to moderate MR based on volumetric assessment (RV 21 cc, RF 28%). PV: No structural PV abnormalit ies noted. TV: No structural TV abnormalit ies noted. Mild tricuspid regurgitation Other: Estimated PA systolic pressu re is 69 mmHg, assuming a mean RAP of 20 mmHg. MEASUREMENTS: 2D Parasternal [place] Ao An 1.9 cm LVPWd 0.9 cm Ao Rtd 3.3 cm Index 1.8 cm/m2 LA Ds 4.8 cm IVSd 0.78 cm RWT 0.35 LVIDd 5.1 cm Index 2.9 cm/m2 LV Mass 152 g (122-1 74) LVIDs 4.4 cm LVM In dex 85 g/m LV%fs 15 % LVOT 2 cm LV EF Biplane LVEDV 164 ml (65-193) Index 91 ml/m2 LV CI 3.6 l/m/m LVESV 90 ml Index 50 ml/m2 LV SV 74 ml LV EF 45 % (63-77)* HR 87 bpm LV CO 6.4 l/min LA Sng Plane LA Area 23 cm (8.8-23.4) LA Vol 78 ml Index 43 ml/m2 LA LngAx 5.8 cm RA Sng Plane RA Vol 68 ml Index 38 ml/m2 RA LngAx 5.9 cm RA Area 22 cm (8.3-1 9.5)* LVOT LVOT Area 3.2 cm DOPPLER LVOT Stroke Vol & Cardiac Out LVOT TVI 17 cm HR 86 bpm LVOT LVOT SV 53 ml LVOT CO 4.6 l/min SVi 30 ml/m LVOT C I 2.6 l/m/m MV Forward Flow MV pkVel 272 cm/s MV TVI 49 cm MV pkPG 30 mmHg MV Area P1/2t 2.8 cm (4-6)* MV Mean G 9.8 mmHg MV Dec T 266 msec TV Pressure Gradient TV PkVel 358 cm/s TV PG 51 mmHg Signed 05/29/2020 11:54 AM Jody Bryson MD Procedure Note Interface, Radiology Results In - 2019 11:54 AM CDT Echocardiography Report [address] [place] [address] Pat.Name: SALVATORE LUGO Pat.I D: [id number] .Date: 05/29/2020 Refer .MD: JUJU BOLAND MD Exam Time: 8:40:00 AM Study Type:Routine Echo Height: 67in Weigh t: 150lb BSA: 1.79 m2 Age: 804/24/1955,65Y Sex: MALE BP: 129/70 HR: 88 bpm Sonog rphr: Margarita Merchant RDCS Pat. Stat.:Inpatient Room: [facility] Study Status:Final Echo Event ID:[id number] Order ID: [id number] Reason for Study:Chest pain, cardiac petra ology suspected History / Clinical:Chest Pain, Chronic R enal Failure, Shortness of Breath Procedures: 2D Echo, Colorflow Doppler, Portable, Intravenous Definity Contrast SUMMARY: Moderately dilated LV with mildly depres sed function. RV is dilated with depressed function. Mechanical prosthetic mitral valve. Mode rate to severely elevated gradient across the prosthetic valve (10 mm Hg at a HR 87 b/min). MV TVI/LVOT TVI = 2.8. 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 However, pressure half time is normal, suggesting an element of PPM. Mild to moderate MR based on vo lumetric assessment (RV 21 cc, RF 28%). Possible torn chordae visualized in the left ventricle Estimated PA systolic pressure is 69 mmH g, assuming a mean RAP of 20 mmHg. Pleural effusion is present. Recommend SEGUNDO for further evaluation of prosthetic valve function and presence of MR/paravalvular MR. FINDINGS: LV: LV size is moderately enlarged . Biplane LV ejection fraction= 45% LV EF is mildly depressed. Septal motion is paradoxical. Global hypokinesi s. RV: RV size is enlarged. RV systol ic function is depressed. LA: LA volume is moderately enlarg ed. RA: RA volume is enlarged. AO: Aortic root diameter is normal . TONY: No pericardial effusion. PLE: Pleural effusion is present. AV: A focal echodensity is noted o n the NCC. This likely represent a focal calcificatio n. Clinical correlation recommended. MV: Mechanical prosthetic mitral v alve. Calcified papillary muscle. Possible torn chordae visualized in the left ventricle Moderate to severely elevated gradient across the prosthetic valve (10 mm Hg at a HR 87 b/min). MV TVI/LVOT TVI = 2.8. 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 However, pressure perez lf time is normal, suggesting an element of PPM. Mild to mod erate MR based on volumetric assessment (RV 21 cc, RF 28%). PV: No structural PV abnormalities noted. TV: No structural TV abnormalities noted. Mild tricuspid regurgitation Other: Estimated PA systolic pressure is 69 mmHg, assuming a mean RAP of 20 mmHg. MEASUREMENTS: 2D Parasternal [place] Ao An 1.9 cm LVPW d 0.9 cm Ao Rtd 3.3 cm Inde x 1.8 cm/m2 LA Ds 4.8 cm IVSd 0.78 cm RWT 0.35 LVIDd 5.1 cm Inde x 2.9 cm/m2 LV Mass 152 g (122-174) LVIDs 4.4 cm LVM Index 85 g/m LV%fs 15 % LVOT 2 cm LV EF Biplane LVEDV 164 ml (65-193) Inde x 91 ml/m2 LV CI 3.6 l/m/m LVESV 90 ml Inde x 50 ml/m2 LV SV 74 ml LV EF 45 % (63-77)* HR 87 bpm LV CO 6.4 l/min LA Sng Plane LA Area 23 cm (8.8-23.4) L A Vol 78 ml Index 43 ml/m2 LA LngAx 5.8 cm RA Sng Plane RA Vol 68 ml Inde x 38 ml/m2 RA LngAx 5.9 cm RA Area 22 cm (8.3-19.5)* LVOT LVOT Area 3.2 cm DOPPLER LVOT Stroke Vol & Cardiac Out LVOT TVI 17 cm HR 86 bpm LVOT LVOT SV 53 ml LVOT CO 4.6 l/min SVi 30 ml/m LVO T CI 2.6 l/m/m MV Forward Flow MV pkVel 272 cm/s MV T 49 cm MV pkPG 30 mmHg MV A geovani P1/2t 2.8 cm (4-6)* MV Mean G 9.8 mmHg MV D ec T 266 msec TV Pressure Gradient TV PkVel 358 cm/s TV P G 51 mmHg Signed 05/29/2020 11:54 AM Jody Bryson MD Performing Organization Address City/State/ZIP Code Phon e Number [facility] [address] [place] [address] ECG Pre/Post Op (05/28/2020 10:05 PM CDT) Pathologist Sig nature Ventricular rate 82 [facility] QRSD interval 76 [facility] QT interval 346 [facility] QTC interval 404 [facility] QRS axis 1 86 [facility] T wave axis 79 [facility] EKG impression Normal sinus rhythm-ST [facility] elevation, consider early repolarization, pericarditis, or injury-Nonspecific ST abnormality-Abnormal ECG- Specimen Narrative Performed At This result has an attachment that is no t available. Performing Organization Address City/[facility] Phon e Number [facility] MUSE [address] [place] [phone] B natriuretic peptide (05/28/2020 1:00 PM CDT)Only the most recent of2 results within the time period is included. Pathologist Sig nature BNP 882 (H) 0 - 100 pg/mL [facility] Specimen Blood Performing Organization Address [facility] Phon e Number [facility] DEPARTMENT OF PATHOLOGY AND [address] [place] [address] [phone] [address] Sputum culture (05/26/2020 5:45 PM CDT)Only the most recent of2 resultswithin the time period is included. Sputum culture Normal oral pete isolated. VU MET TINEO isolate Comment: HOSPITAL Specimen Information Specimen Source: Sputum Specimen Site: Expectorated Specimen Sputum - Expectorated Performing Organization Address [facility] Phon e Number [facility] DEPARTMENT OF PATHOLOGY AND [address] [place] [address] [phone] [address] Vancomycin level, random (05/17/2020 4:00 AM CDT)Only the most recent of3 resultswithin the time period is included. Pathologist Sig nature Vancomycin, random 18.5 ug/mL [facility] ITAL Specimen Serum Performing Organization Address [facility] Phon e Number [facility] DEPARTMENT OF PATHOLOGY AND [address] [place] [address] [phone] [address] TPA/Dornase Administration (05/16/2020 12:19 PM CDT) Narrative Performed At Julieta Brock PA 05/16/2020 12:22 PM TPA/Dornase Administration Date/Time: 05/16/2020 10:40 AM Performed by: Julieta Brock PA Authorized by: Uri Nicole MD Consent: Consent obtained: Verbal Consent given by: Patient Risks discussed: Bleeding, incomple te drainage, infection and pain Alternatives discussed: No treatmen t Lindsay protocol: Procedure explained and questions ans wered to patient or proxy's satisfaction: yes Relevant documents present and verifi ed: yes Test results available and properly l abeled: yes Imaging studies available: yes Required blood products, implants, de vices, and special equipment available: yes Site/side marked: yes Immediately prior to procedure, a spenser e out was called: yes Patient identity confirmed: Verball y with patient, arm band and hospital-assigned identification number Indications: Indications: Left pleural effusion Anesthesia (see MAR for exact dosages): Anesthesia method: None Post-procedure details: Patient tolerance of procedure: Katie erated well, no immediate complications XR Chest 1 Vw (05/12/2020 5:08 PM CDT) Specimen Narrative Performed At EXAMINATION: XR CHEST 1 VW [facility] CLINICAL HISTORY: post pleural cathete r insertion COMPARISON: Chest 1 view dated 0 IMPRESSION: 1. Interval placement of a left pleural catheter. No p neumothorax. Left pleural effusion is decreased in size from the prior s tudy. Right pleural effusion and right lower lobe at electasis are unchanged. 2. The cardiac silhouette is enlarged. Mild central pu lmonary vascular congestion is improved. 3. No acute osseous [id number] Procedure Note Hm Interface, Radiology Results Incoming - 05/12/2020 5:14 PM CDT EXAMINATION: XR CHEST 1 VW CLINICAL HISTORY: post pleural catheter insertion COMPARISON: Chest 1 view dated 05/09/2020 IMPRESSION: 1. Interval placement of a left pleural catheter. No pneumothorax. Left pleural effusion is decreased in size from the prior study. Right pleural effusion and right lower lobe atelectasis are unchanged. 2. The cardiac silhouette is enlarged. M ild central pulmonary vascular congestion is improved. 3. No acute osseous [id number] Performing Organization Address City/State/ZIP Code Phon e Number [facility] [address] [place] [address] US Insert Pleura Catheter (05/12/2020 4:45 PM CDT) Specimen Narrative [facility] At [facility] Procedure: Ultrasound-guided left thoracostomy tube placement Performing Radiologist: Joshua Shea MD Assistants: Dr. Osei Anesthesia Type: Intraservice moderate sedation was administered by the procedure nurse and monitored by the procedure physician for10 minutes . Lidocaine 1% was used for local anesthesia. Preprocedure Diagnosis: Recurrent pleural effusion Post Procedure Diagnosis: Same Technique: After explaining the procedure as well as its benefits and risks including but not limited to bleeding, infection, and damage to adjacent structures, all of the patient's questions were answer ed to apparent satisfaction and written informed consen t was then obtained. The patient was taken to the ultrasound suite and plac ed in the right lateral decubitus position. The left posterior chest w as interrogated with ultrasound which revealed a moderate complex pleu ral effusion. Overlying skin was then prepped and drap ed in usual sterile fashion. Lidocaine was adm inistered locally. Under direct ultrasound guidance a 5 Cymro Yueh needl e was inserted into the left pleural space. The inner stylette was re moved and a guidewire advanced. Following serial dilatation over t he wire an 8 Cymro locking pigtail catheter was plac ed. Approximately 20 cc of fluid were aspirated and sent t o laboratory for culture and sensitivity. The catheter was then affixed the patient's skin with 2-0 silk and placed to Pleur-evac drainage. Patient tolerated the procedure well. Complications: None Specimens Removed: As above Estimated Blood Loss: Less than 1 mL Blood/Blood Products Administered: None Grafts/Implants: As described in the above report. Impression: Successful, uncomplicated ultrasound-guided left thora costomy tube placement. [id number] Procedure Note Interface, Radiology Results Incoming - 05/12/2020 5:10 PM CDT Procedure: Ultrasound-guided left thoracostomy tube placement Performing Radiologist: Joshua Shea MD Assistants: Dr. Osei Anesthesia Type: Intraservice moderate sedation was admin istered by the procedure nurse and monitored by the procedure physician for10 minutes. Lidocaine 1% was used for local anesthesia. Preprocedure Diagnosis: Recurrent pleural effusion Post Procedure Diagnosis: Same Technique: After explaining the procedure as well a s its benefits and risks including but not limited to bleeding, infection, and damage to adjacent structures, all of the patient's questions were answered to apparent satisfaction and written informed consent was then obtained. The patient was taken to the ultrasound suite and placed in the right lateral decubitus position. The left posterior chest was interrogated with ultrasound which revealed a moderate complex pleural effusion. Overlying skin was then prepped and draped in usual sterile fashion. Lidocaine was adm inistered locally. Under direct ultrasound guidance a 5 Saúl nch Yueh needle was inserted into the left pleural space. The inner stylette was removed and a guidewire advanced. Following serial dilatation over the wire an 8 Cymro locking pigtail catheter was placed. Approximately 20 cc of fluid were aspira jayla and sent to laboratory for culture and sensitivity. The catheter was then affixed the patient's skin with 2-0 silk and placed to Pleur-evac drainage. Patient tolerated the procedure well. Complications: None Specimens Removed: As above Estimated Blood Loss: Less than 1 mL Blood/Blood Products Administered: None Grafts/Implants: As described in the above report. Impression: Successful, uncomplicated ultrasound-korin ded left thoracostomy tube placement. [id number] Performing Organization Address [facility] Phon e Number [facility] [address] [place] [address] Cell count and differential, body fluid (05/12/2020 4:30 PM CDT) Pathologist Sig nature [facility] fluid type Thoracentesis [facility] Color, fluid [place] [facility] Appearance, fluid Hazy [facility] RBC, fluid 22,000 /CMM [facility] Nucleated cells, 104 /CMM [facility] Fluid mononuclear See Diff [facility] Neutrophils, fluid 2 % [facility] Lymphocytes, fluid 98 % [facility] Specimen Fluid Performing Organization Address [facility] Phon e Number [facility] DEPARTMENT OF PATHOLOGY AND [address] [place] [phone] [facility]OMIC MEDICINE [address] [address] Triglycerides, misc fluid (05/12/2020 4:30 PM CDT) Fluid type Thoracentesis [facility] Triglyceride, 50 mg/dL [facility] Comment: HOSPITAL The reference interval(s) and other method performance specifications have not been established for this body fluid. The test results must be integrated into the clinical context for interpretation. This test has been modified from the manufacturers instructions. The performance characteristics were determined by [facility] in a manner consistent with CLIA requirements. This test has not been cleared or approved by the U.S. Food and Drug Administration. Specimen Fluid Performing Organization Address [facility] Phon e Number [facility] DEPARTMENT OF PATHOLOGY AND [address] [place] [address] [phone] [address] Protein, misc fluid (05/12/2020 4:30 PM CDT) Fluid type Thoracentesis [facility] Protein, fluid 3.7 g/dL [facility] Comment: [facility] The reference interval(s) and other method performance specifications have not been established for this body fluid. The test results must be integrated into the clinical context for interpretation. This test has been modified from the manufacturers instructions. The performance characteristics were determined by [facility] in a manner consistent with CLIA requirements. This test has not been cleared or approved by the U.S. Food and Drug Administration. Specimen Fluid Performing Organization Address [facility] e Number [facility] DEPARTMENT OF PATHOLOGY AND [address] [place] [address] [phone] [address] LDH, misc fluid (05/12/2020 4:30 PM CDT) [facility], fluid 201 U/L [facility] Comment: [facility] The reference interval(s) and other method performance specifications have not been established for this body fluid. The test results must be integrated into the clinical context for interpretation. This test has been modified from the manufacturers instructions. The performance characteristics were determined by [facility] in a manner consistent with CLIA requirements. This test has not been cleared or approved by the U.S. Food and Drug Administration. Specimen Fluid Performing Organization Address [facility] Phon e Number [facility] DEPARTMENT OF PATHOLOGY AND [address] [place] [address] [phone] [address] Glucose level, misc fluid (05/12/2020 4:30 PM CDT) Fluid type Thoracentesis [facility] Glucose, fluid 39 mg/dL [facility] Comment: HOSPITAL The reference interval(s) and other method performance specifications have not been established for this body fluid. The test results must be integrated into the clinical context for interpretation. This test has been modified from the manufacturers instructions. The performance characteristics were determined by [facility] in a manner consistent with CLIA requirements. This test has not been cleared or approved by the U.S. Food and Drug Administration. Specimen Fluid Performing Organization Address City/[facility] Phon e Number [facility] DEPARTMENT OF PATHOLOGY AND [address] [place], [place] [phone] [address] [address] Amylase level, misc fluid (05/12/2020 4:30 PM CDT) Fluid type Thoracentesis [facility] Amylase, fluid 44 U/L [facility] Comment: HOSPITAL The reference interval(s) and other method performance specifications have not been established for this body fluid. The test results must be integrated into the clinical context for interpretation. This test has been modified from the manufacturers instructions. The performance characteristics were determined by [facility] in a manner consistent with CLIA requirements. This test has not been cleared or approved by the U.S. Food and Drug Administration. Specimen Fluid Performing Organization Address [facility] Phon e Number [facility] DEPARTMENT OF PATHOLOGY AND [address] [place] [address] [phone] [address] Albumin, misc fluid (05/12/2020 4:30 PM CDT) Fluid type Thoracentesis [facility] Albumin, fluid 1.7 g/dL [facility] Comment: HOSPITAL The reference interval(s) and other method performance specifications have not been established for this body fluid. The test results must be integrated into the clinical context for interpretation. This test has been modified from the manufacturers instructions. The performance characteristics were determined by [facility] in a manner consistent with CLIA requirements. This test has not been cleared or approved by the U.S. Food and Drug Administration. Specimen Fluid Performing Organization Address City/[facility]/ZIP Code Phon e Number [facility] DEPARTMENT OF PATHOLOGY AND [address] [place] [address] [phone] [address] pH, misc fluid (05/12/2020 4:30 PM CDT) Pathologist Sig nature Fluid type Thoracentesis [facility] pH, fluid 8.00Comment: Reference [facility] ranges are not HOSPITAL established for Miscellanous specimens. Specimen Fluid Performing Organization Address City/[facility] Phon e Number [facility] DEPARTMENT OF PATHOLOGY AND [address] [place], [place] [address] 4/8 subset (05/10/2020 3:25 AM CDT) CD3% 57 57 - 85 % [facility] CD3 absolute count 276 (L) 544 - 2,501 ul [facility] CD4% 31 (L) 37 - 57 % [facility] CD4 absolute count 149 (L) 488 - 1,340 ul [facility] CD8% 26 13 - 40 % [facility] CD8 absolute count 126 (L) 136 - 937 ul [facility] CD4/CD8 ratio 1.2 0.8 - 2.9 [facility] 4/ subset See link below [facility] for PDF Lab HOSPITAL ReportComment: Specimen Blood Performing Organization Address City/[facility] Phon e Number [facility] DEPARTMENT OF PATHOLOGY AND [address] [place] [address] CRITICAL CARE (05/10/2020 1:13 AM CDT) Narrative Performed At Megan Mcmahon MD 05/10/2020 1:22 PM Critical Care Performed by: Leora Calloway PA Authorized by: Megan Mcmahon MD Critical care provider statement: Critical care time (minutes): 35 Critical care time was exclusive of: Separately b illable procedures and treating other patients Critical care was necessary to treat or prevent imminent or life-threatening deterioration of the fo llowing conditions: Metabolic crisis Critical care was time spent personal ly by me on the following activities: Blood draw for specimens, development of treatment plan with patient or surrogate, discussions with c onsultants, discussions with primary provider, evaluation of patient' s response to treatment, examination of patient, re-evaluation of patient's condition, pulse oximetry, ordering and review of radiographic studies, ordering and review of laboratory studies, ordering and perf orming treatments and interventions and review of old charts Joshua 'yes' if you are taking over critical care for this patient from another provider.: no Respiratory pathogen panel (05/09/2020 6:00 PM CDT) Pathologist [facility] Adenovirus PCR Not Detected [place] Comment: [facility]OIST Specimen Information [facility] Specimen Source: Nares Specimen Site: Right Coronavirus HKU1 PCR Not Detected [facility] Coronavirus NL63 PCR Not Detected [facility] Coronavirus 229E PCR Not Detected [facility] Coronavirus OC43 PCR Not Detected [facility] Human metapneumovirus Not Detected [facility] Human Not Detected [place] rhinovirus/enterovirus [facility] Influenza A PCR Not Detected [facility] Influenza A/H1 PCR Not Reported [facility] Influenza A/H3 PCR Not Reported [facility] Influenza A/H1-2009 PCR Not Reported [facility] Influenza B PCR Not Detected [facility] Parainfluenza virus 1 Not Detected [facility] Parainfluenza virus 2 Not Detected [facility] Parainfluenza virus 3 Not Detected [facility] Parainfluenza virus 4 Not Detected [facility] Respiratory syncytial Not Detected [place] virus PCR [facility] Bordetella pertussis Not Detected [facility] Bordetella Not Detected [place] parapertussis PCR [facility] Chlamydia pneumoniae Not Detected [facility] Mycoplasma pneumoniae Not Detected [facility] Influenza A no sub type Not Reported [facility] Specimen Nares - Right Performing Organization Address City/[facility] Phon e Number [facility] DEPARTMENT OF PATHOLOGY AND [address] [place] [address] [phone] [address] Influenza antigen test, reflex negative to RPP (05/09/2020 6:00 PM CDT) Pathologist [facility] Influenza antigen Negative for Influenza A/B antigen. [facility] Comment: HOSPITAL Specimen Information Specimen Source: Nares Specimen Site: Right Specimen Nares - Right Performing Organization Address City/[facility] Phon e Number [facility] DEPARTMENT OF PATHOLOGY AND [address] [place] [address] [phone] [address] Blood culture, aerobic & anaerobic (05/09/2020 6:00 PM CDT)Only the most recent of4 resultswithin the time period is included. Blood culture No growth after 5 days of incubation. [facility] isolate Comment: HOSPITAL Specimen Information Specimen Source: Blood Specimen Site: Hand, right Specimen Blood - Hand, right Performing Organization Address City/State/ZIP Code Phon e Number [facility] DEPARTMENT OF PATHOLOGY AND [address] [place], [place] [phone] GENOMIC MEDICINE [facility] [address] [place] [address] CT Abdomen Pelvis Wo Contrast (09/12/2019 8:46 PM HVAC FIELD SERVICE TECHNICIAN) Specimen Narrative Performed At EXAMINATION: CT ABDOMEN [...] obstruction or evidence of inflammation. Procedure Note Hm Interface, Radiology Results Incoming 09/12/2019 8:56 PM HVAC FIELD SERVICE TECHNICIAN EXAMINATION: CT ABDOMEN PELVIS WO CONTRAST CLINICAL [...] or evidence of inflammation. Performing Organization Address City/State/ZIP Code Phon e Number [facility] [address] [place] [address] XR Chest 2 Vw (09/12/2019 8:44 PM HVAC FIELD SERVICE TECHNICIAN) Specimen Narrative Performed At EXAMINATION: XR CHEST 2 VW [facility] CLINICAL HISTORY: sob COMPARISON: None IMPRESSION: Status post median sternotomy and valvular surgery. At rial clip present. There is mild cardiomegaly. There is mild central vasc ular congestion. There is small right pleural effusion with volume loss in the right base. Lungs are otherwise clear. There i s no pneumothorax. Visualized osseous stru ctures are intact. [facility]-[id number] Procedure Note Interface, Radiology Results Incoming - 09/12/2019 8:49 PM HVAC FIELD SERVICE TECHNICIAN EXAMINATION: XR CHEST 2 VW CLINICAL HISTORY: sob COMPARISON: None IMPRESSION: Status post median sternotomy and valvul ar surgery. Atrial clip present. There is mild cardiomegaly. There is mild central vascular congestion. There is small right pleural effusion with volume loss in the right base. Lungs are otherwise clear. There is no pneumothorax. Visualized osseous stru ctures are intact. [facility]-[id number] Performing Organization Address City/[facility]/ZIP Code Phon e Number [facility] [address] [place] [address] Troponin, I-Stat (09/12/2019 7:43 PM HVAC FIELD SERVICE TECHNICIAN) Troponin, I-Stat 0.01 0.00 - 0.08 [facility] Comment: ng/mL [place] 0.09 - 1.49 ng/ml May indicate increa sed risk of acute EMERGENCY CARE coronary syndrome. [place] >=1.5 ng/ml Consistent with acute myocardial infarction. The diagnostic value of a single normal or non-diagnos tic result is questionable. Serial samples at 2-6 hour i ntervals are required to rule out acute myocardial injury. Specimen Plasma specimen Performing Organization Address City/State/ZIP Code Phon e Number DEPARTMENT OF PATHOLOGY AND [address] [place] [phone] GENOMIC MEDICINE, [address] [address] [facility] Lactic acid, I-Stat (09/12/2019 7:43 PM HVAC FIELD SERVICE TECHNICIAN) Pathologist Sig nature Lactic acid, I-Stat 2.0 0.5 - 2.2 mmol/L [facility] Specimen Plasma specimen Performing Organization Address City/[facility] Phon e Number DEPARTMENT OF PATHOLOGY AND [address] [place] [address] [address] [place] [address] EMERGENCY CARE [place] Influenza antigen (09/12/2019 7:43 PM HVAC FIELD SERVICE TECHNICIAN) Influenza antigen Flue B: positive Flue A: negative [facility] Comment: [facility] Specimen Source: Nares Specimen Site: Left Specimen Nares - Left Performing Organization Address [facility] Phon e Number DEPARTMENT OF PATHOLOGY AND [address] [place], [place] [phone] [place] [address] EMERGENCY [facility] Venous blood gas (09/12/2019 7:43 PM HVAC FIELD SERVICE TECHNICIAN) Pathologist Sig nature pH, venous, POC 7.52 (H) 7.32 - 7.42 [facility] pCO2, venous, POC 41 (L) 45 - 51 mm Hg [facility] pO2, venous, POC 32 25 - 40 mm Hg [facility] Base excess, venous, 9 (H) -2 - 2 mmol/L [facility] Bicarbonate, venous, 32.9 (H) 21.0 - 28.0 [facility] mmol/L [facility] O2 saturation, 68 40 - 70 % [facility] venous, POC [facility] Specimen Blood Performing Organization Address City/[facility] Phon e Number DEPARTMENT OF PATHOLOGY AND [address] [place], [place] [phone] [place] [address] EMERGENCY [facility] ECG ED Preliminary Interpretation - Not an Order (09/12/2019 7:29 PM HVAC FIELD SERVICE TECHNICIAN) Narrative Performed At Ty Nieves MD 09/13/2019 6:41 AM ECG ED Preliminary Interpretation - Not an Order Performed by: Ty Nieves MD Authorized by: Ty Nieves MD ECG reviewed by ED Physician in the abse nce of a natural resources technician: yes Interpretation: Interpretation: non-specific Rate: ECG rate: 96 ECG rate assessment: normal Rhythm: Rhythm: sinus rhythm Ectopy: Ectopy: none QRS: QRS axis: Normal Conduction: Conduction: normal ST segments: ST segments: Normal T waves: T waves: peaked Peaked: V3, V4, V5, V6, II, III and aVF after 07/15/2019 Insurance Payer Benefit Plan / Subscriber ID Effective Dates Phone Addre ss Type Group MEDICARE MEDICARE PART A [id number] 2010-Present [place], [place] Medicare AND B [id number] 1 Advance Directives For more information, please contact: [phone] Type Date 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
--- OUTSIDE RECORDS SUMMARY | 2020-07-15 02:10 | XMS REPORT | Clinical Summary ---
:1955 Author Organization [facility] Address [address] [place] [address] Care Team Providers Name Role Phone Edenilson Joellain Unavailable Pcp, No Primary Care Provider Unavailable [...] Active (KALETRA) 200-50 mg mouth 2 (two) times per tablet daily. raltegravir Take 400 mg by 0 Act samreen (ISENTRESS) 400 mg mouth 2 (two) times tablet daily. aspirin 81 MG EC Take 81 mg by mouth 0 Active tablet daily. atorvastatin Take 20 mg by mouth 0 Active (LIPITOR) 20 MG daily. tablet ergocalciferol Take 50,000 Units 0 Active (VITAMIN D2) 50,000 by mouth once a unit capsule week. warfarin (COUMADIN) 6 See patient 0 08/20/2018 Active MG tablet instructions for details, 12 mg on Saturday, Saturday and Saturday, and 11 mg on Saturday, , Saturday, Saturday. Additional Information Patient taking differently: 5 mg, See patient instructions for details, 15 mg on Saturday, Saturday and Saturday, and 10 mg on Saturday, , Saturday, Saturday, Reported on 02/27/2020 1:05 AM pantoprazole (PROTONIX) Take 1 tablet (40 30 tablet 0 01/07/20 19 Active 40 MG tablet mg total) by mouth daily. calcium acetate,phosphat Take 667 mg by 0 Active bind, (PHOSLO) 667 mg mouth 3 (three) capsule times daily with meals. lamiVUDine (EPIVIR) 10 Take 25 mg by 0 Active mg/mL mouth daily. solutionIndications: HIV infection carvediloL (COREG) 12.5 Take 12.5 mg by 0 Active MG tablet mouth daily. senna-docusate (SENOKOT Take 2 tablets by 60 tablet 0 03/03/20 20 03/03/2021 Active S) 8.6-50 mg per tablet mouth nightly. carvedilol (COREG) 12.5 Take 1 tablet 60 tablet 5 08/20/2018 1 10/21/2018 MG tablet (12.5 mg total) by mouth 2 (two) times daily No more refills through my office. calcium acetate (PHOSLO) Take 1 capsule 60 capsule 1 9 01/06/2020 667 mg capsule (667 mg total) by mouth 2 (two) times daily before meals. losartan (COZAAR) 50 MG Take 1 tablet (50 30 tablet 1 01/07/20 19 01/06/2020 tablet mg total) by mouth daily. HYDROcodone-acetaminophe Take 1 tablet by 30 tablet 0 03/03/20 20 03/13/2020 n (NORCO 5-325) 5-325 mg mouth every 6 per tablet (six) hours as needed for [...] long-term current use of insulin (HCC) after 07/15/2019 Family History Medical History Relation Name Comments Diabetes Father Heart disease Mother Relation Name Status Comments Father Mother Social History Tobacco Use Types Packs/Day Years Used Date Never Smoker Smokeless Tobacco: Never Used Alcohol Use Drinks/Week oz/Week Comments No Sex Assigned at Date Recorded Not on file Last Filed Vital Signs Vital Sign Reading Time Taken Comments Blood Pressure 173/84 04/21/2020 11:45 PM CDT [...] FIRST YEAR if no IPPE) PNEUMOCOCCAL VACCINE 0-64 YRS (2 08/23/2018 08/23/2017 of 3 - PCV13) HEMOGLOBIN A1C 06/17/2019 12/16/2018, 01/10/2018 COLON CANCER SCREENING ANNUAL FOBT 01/05/2020 01/04/2019, 0 01/02/2019, 12/04/2018, Additional history exists INFLUENZA VACCINE (#1) 2020 08/23/2017 LIPID PANEL 03/25/2023 03/25/2020, 12/25/2019, 12/17/2018 Implants Implanted Type Area Cupola Operator Device Shelf Model / Identifier Expiration Serial / Date Lot Sys Atriclip Exclsn Flx 40mm [id number] - Sn/A Cardiovascular N/A: ATRICURE 07/03/2020 [id number] / Implanted: Qty: 1 on 01/10/2018 by Tasneem Araujo MD at [facility] Heart N/A / [id number] Description:ATRICURE ATRICLIP FLEX Cath Dlys Trialysis Pwr 30cm [id number] - [id number] Catheter Left: CR BARD:ACCESS 03/01/2019 [id number] / Implanted: Qty: 1 on 01/10/2018 by Tasneem Araujo MD at [facility] Dialysis Long Groin SYS / Term [id number] Valve Mitrl [facility] Std Mstr 27mm [id number] - [id number] Valves Heart ST SHEA 12/27/2021 [id number] / Implanted: Qty: 1 on 01/10/2018 by Tasneem Araujo MD at [facility] MED:CARDIAC SURG [id number] / N/A [place] For Femoral Neck System- Depuysynthes Left: Hip DePuy 06/01/2029 REF [id number] / Implanted: Qty: 1 on 02/28/2020 by Sukumar Grimes MD at [facility] Orthopaedics / [id number] 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 Lenght Left: Hip [employer] 06/01/2029 REF [id number] / Implanted: Qty: 1 on 02/28/2020 by Sukumar Grimes MD at [facility] / [id number] Femoral Neck System Plate 2 Hole Left: Hip [employer] 09/01/2029 REF [id number] / Implanted: Qty: 1 on 02/28/2020 by Gudelia edwards, Sukumar Hines MD at [facility] / [id number] 5.0mm Ti Locking Scr Slf-Tpng W/T25 Stardrive 38mm Lef t: Hip [employer] 08/01/2029 REF [id number] / Implanted: Qty: 1 on 02/28/2020 by Gudelia edwards, Sukumar Hines MD at [facility] / [id number] 5.0mm Ti Locking Scr Slf Tpng W/T25 Stardrive 38mm Lef t: Hip [employer] 07/02/2029 REF [id number] / Implanted: Qty: 1 on 02/28/2020 by Gudelia edwards, Sukmuar Hines MD at [facility] / [id number] Procedures Procedure Name Priority Date/Time Associated Comments [...] n the results section. ECG 12-LEAD Routine 04/21/2020 8:57 PM CDT Procedure Note - Interface, External Ris In - 2020 4:34 AM CDT Ventricular Rate 86 BPM Atrial Rate 88 BPM QRS Duration 76 ms Q-T Interval 382 ms QTC Calculation(Bazett) 457 ms R Elizabeth 50 degrees T Elizabeth 73 degrees Undetermined rhythm Nonspecific ST abnormality Abnormal ECG When compared with ECG of 13:58, Current undetermined rhythm precludes rhythm comparison, needs review ECG 12-LEAD STAT 04/21/2020 8:57 PM Results for this CDT procedure are i n the results section. RHYTHM STRIP - SCAN 03/07/2020 11:30 AM CDT POCT-GLUCOSE METER Routine 03/03/2020 3:17 PM Re sults for this CDT procedure are i n the results section. POCT-GLUCOSE METER Routine 03/03/2020 12:24 PM Re sults for this CDT procedure are i n the results section. HEMODIALYSIS INPATIENT Routine 03/03/2020 12:23 PM Results for this CDT procedure are i n the results section. APTT Routine 03/03/2020 9:05 AM Results for this CDT procedure are i n the results section. APTT Routine 03/03/2020 6:33 AM Results for this CDT procedure are i n the results section. PROTHROMBIN TIME/INR Routine 03/03/2020 4:20 AM Results for this CDT procedure are i n the results section. BASIC METABOLIC PANEL Routine 03/03/2020 4:20 AM Results for this (7) CDT procedure are i n the results section. CBC W/PLT COUNT & AUTO Routine 03/03/2020 4:19 AM Results for this DIFFERENTIAL CDT procedure are i n the results section. CBC W/PLT COUNT & AUTO Routine 03/03/2020 4:19 AM Results for this DIFFERENTIAL CDT procedure are i n the results section. POCT-GLUCOSE METER Routine 03/02/2020 9:17 PM Re sults for this CDT procedure are i n the results section. APTT Routine 03/02/2020 8:45 PM Results for this CDT procedure are i n the results section. APTT Routine 03/02/2020 6:38 PM Results for this CDT procedure are i n the results section. POCT-GLUCOSE METER Routine 03/02/2020 4:57 PM Re sults for this CDT procedure are i n the results section. POCT-GLUCOSE METER Routine 03/02/2020 11:53 AM Re sults for this CDT procedure are i n the results section. APTT Routine 03/02/2020 11:29 AM Results for this CDT procedure are i n the results section. POCT-GLUCOSE METER Routine 03/02/2020 8:16 AM Re sults for this CDT procedure are i n the results section. APTT Routine 03/02/2020 5:09 AM Results for this CDT procedure are i n the results section. CBC W/PLT COUNT & AUTO Routine 03/02/2020 5:08 AM Results for this DIFFERENTIAL CDT procedure are i n the results section. PROTHROMBIN TIME/INR Routine 03/02/2020 5:08 AM Results for this CDT procedure are i n the results section. CBC W/PLT COUNT & AUTO Routine 03/02/2020 5:08 AM Results for this DIFFERENTIAL CDT procedure are i n the results section. BASIC METABOLIC PANEL Routine 03/02/2020 5:08 AM Results for this (7) CDT procedure are i n the results section. POCT-GLUCOSE METER Routine 03/01/2020 11:01 PM Re sults for this CDT procedure are i n the results section. APTT Routine 03/01/2020 10:26 PM Results for this CDT procedure are i n the results section. PT/APTT Routine 03/01/2020 3:10 PM Results for this CDT procedure are i n the results section. APTT Routine 03/01/2020 3:10 PM Results for this CDT procedure are i n the results section. HEMODIALYSIS INPATIENT Routine 03/01/2020 12:40 PM Results for this CDT procedure are i n the results section. BASIC METABOLIC PANEL WONG 03/01/2020 11:33 AM Results for this (7) CDT procedure are i n the results section. CBC W/PLT COUNT & AUTO Routine 03/01/2020 5:43 AM Results for this DIFFERENTIAL CDT procedure are i n the results section. APTT Add-On 03/01/2020 5:43 AM Results for this CDT procedure are i n the results section. PROTHROMBIN TIME/INR Routine 03/01/2020 5:43 AM Results for this CDT procedure are i n the results section. CBC W/PLT COUNT & AUTO Routine 03/01/2020 5:43 AM Results for this DIFFERENTIAL CDT procedure are i n the results section. BASIC METABOLIC PANEL Routine 03/01/2020 5:43 AM Results for this (7) CDT procedure are i n the results section. APTT Routine 02/29/2020 10:37 PM Results for this CDT procedure are i n the results section. POCT-GLUCOSE METER Routine 02/29/2020 10:19 PM Re sults for this CDT procedure are i n the results section. POCT-GLUCOSE METER Routine 02/29/2020 3:25 PM Re sults for this CDT procedure are i n the results section. APTT Routine 02/29/2020 3:17 PM Results for this CDT procedure are i n the results section. POCT-GLUCOSE METER Routine 02/29/2020 11:38 AM Re sults for this CDT procedure are i n the results section. PROTHROMBIN TIME/INR Add-On 02/29/2020 9:03 AM Results for this CDT procedure are i n the results section. APTT Routine 02/29/2020 9:03 AM Results for this CDT procedure are i n the results section. CBC W/PLT COUNT & AUTO Routine 02/29/2020 12:51 AM Results for this DIFFERENTIAL CDT procedure are i n the results section. APTT Routine 02/29/2020 12:51 AM Results for this CDT procedure are i n the results section. CBC W/PLT COUNT & AUTO Routine 02/29/2020 12:51 AM Results for this DIFFERENTIAL CDT procedure are i n the results section. BASIC METABOLIC PANEL Routine 02/29/2020 12:51 AM Results for this (7) CDT procedure are i n the results section. POCT-GLUCOSE METER Routine 02/28/2020 11:48 PM Re sults for this CDT procedure are i n the results section. APTT Routine 02/28/2020 6:36 PM Results for this CDT procedure are i n the results section. POCT-GLUCOSE METER Routine 02/28/2020 6:03 PM Re sults for this CDT procedure are i n the results section. TRANSFUSION SERVICE 02/28/2020 6:00 PM REPORT - SCAN CDT APTT Routine 02/28/2020 5:12 PM Results for this CDT procedure are i n the results section. POCT-GLUCOSE METER Routine 02/28/2020 12:02 PM Re sults for this CDT procedure are i n the results section. APTT Routine 02/28/2020 10:56 AM Results for this CDT procedure are i n the results section. POCT-GLUCOSE METER Routine 02/28/2020 6:38 AM Re sults for this CDT procedure are i n the results section. CBC W/PLT COUNT & AUTO Routine 02/28/2020 4:31 AM Results for this DIFFERENTIAL CDT procedure are i n the results section. CBC W/PLT COUNT & AUTO Routine 02/28/2020 4:31 AM Results for this DIFFERENTIAL CDT procedure are i n the results section. BASIC METABOLIC PANEL Routine 02/28/2020 4:31 AM Results for this (7) CDT procedure are i n the results section. POCT-GLUCOSE METER Routine 02/28/2020 2:14 AM Re sults for this CDT procedure are i n the results section. FL FLUORO NON-SPECIFIC Routine 02/28/2020 1:47 AM Results for this UP TO 1 HOUR CDT procedure are i n the results section. PROCEDURE W/ C-ARM 02/27/2020 11:58 PM Closed fracture of CDT neck of left femur, initial encounter (HCC) ORIF,FEMUR 02/27/2020 11:58 PM Closed fracture of CDT neck of left femur, initial encounter (HCC) APTT Routine 02/27/2020 7:46 PM Results for this CDT procedure are i n the results section. HEMODIALYSIS INPATIENT Routine 02/27/2020 6:35 PM Results for this CDT procedure are i n the results section. POCT-GLUCOSE METER Routine 02/27/2020 5:44 PM Re sults for this CDT procedure are i n the results section. FERRITIN Routine 02/27/2020 3:19 PM Results for this CDT procedure are i n the results section. IRON, TIBC, % SAT. Routine 02/27/2020 3:19 PM Re sults for this (WITHOUT FERRITIN) CDT procedure are in the results section. APTT Routine 02/27/2020 12:30 PM Results for this CDT procedure are i n the results section. PLATELET COUNT Routine 02/27/2020 12:30 PM Result s for this CDT procedure are i n the results section. POCT-GLUCOSE METER Routine 02/27/2020 12:01 PM Re sults for this CDT procedure are i n the results section. HEPATITIS B SURFACE STAT 02/27/2020 10:18 AM R esults for this ANTIGEN CDT procedure are i n the results section. ANTIBODY IDENTIFICATION Routine 02/27/2020 8:56 AM Results for this CDT procedure are i n the results section. XR WRIST 2 VIEWS LEFT Routine 02/27/2020 8:49 AM Results for this CDT procedure are i n the results section. POTASSIUM Routine 02/27/2020 7:53 AM Results for this CDT procedure are i n the results section. XR HIP 2 VIEWS LEFT STAT 02/27/2020 7:02 AM R esults for this CDT procedure are i n the results section. XR PELVIS 1 OR 2 VIEWS STAT 02/27/2020 6:56 AM Results for this CDT procedure are i n the results section. POCT-GLUCOSE METER Routine 02/27/2020 6:15 AM Re sults for this CDT procedure are i n the results section. SARS-COV2/RT-PCR ([facility] Routine 02/27/2020 1:52 AM Results for this & REF LABS) CDT procedure are i n the results section. CBC W/PLT COUNT & AUTO Routine 02/27/2020 1:23 AM Results for this DIFFERENTIAL CDT procedure are i n the results section. TYPE AND SCREEN, Routine 02/27/2020 1:23 AM Resu lts for this AUTOMATED CDT procedure are i n the results section. PHOSPHORUS Routine 02/27/2020 1:23 AM Results for this CDT procedure are i n the results section. MAGNESIUM Routine 02/27/2020 1:23 AM Results for this CDT procedure are i n the results section. PROTHROMBIN TIME/INR Routine 02/27/2020 1:23 AM Results for this CDT procedure are i n the results section. COMPREHENSIVE METABOLIC Routine 02/27/2020 1:23 AM Results for this PANEL CDT procedure are i n the results section. CBC W/PLT COUNT & AUTO Routine 02/27/2020 1:23 AM Results for this DIFFERENTIAL CDT procedure are i n the results section. after 07/15/2019 Results EKG-SCANNED (04/26/2020 1:01 PM CDT) Narrative Performed At This result has an attachment that is no t available. ECG/EKG Interpretation (04/22/2020 12:23 AM CDT) Narrative Performed At Juan Antonio Avila MD 04/22/2020 1 :24 AM ECG/EKG Interpretation Date/Time: 04/22/2020 1:24 AM [...] time period is included. Pathologist Sig nature Protime 25.1 (H) 11.9 - 14.2 seconds [facility] INR 2.34 <=5.90 [facility] PTT 38.7 (H) 22.5 - 36.0 seconds [facility] Specimen Blood Narrative Performed At Effective 01/28/2019: PT Reference Range [facility] Change New: 11.9-14.2 Previous: 11.7-14.7 RECOMMENDED COUMADIN/WARFARIN INR THERAPY RANGES STANDARD DOSE: 2.0-3.0 Includes: PROPHYLAXIS for venous thrombosis, systemic embolization; TREATMENT for venous thrombosis and/or pulmonary embolus. HIGH RISK: Target INR is 2.5-3.5 for patients wiht mechanical heart valves. Performing Organization Address City/State/Zipcode Phone Number [facility] [address] [place] [address] CENTER CBC with platelet count + automated diff (04/21/2020 10:30 PM CDT)Only the most recent of7 resultswithin the time period is included. Pathologist Sig nature WBC 6.2 3.5 - 10.5 [facility] K/L [facility] RBC 2.92 (L) 4.63 - 6.08 [facility] M/L [facility] Hemoglobin 9.3 (L) 13.7 - 17.5 [facility] GM/DL [facility] Hematocrit 29.5 (L) 40.1 - 51.0 % [facility] MCV 101.0 (H) 79.0 - 92.2 fL [facility] MCH 31.8 25.7 - 32.2 pg [facility] MCHC 31.5 (L) 32.3 - 36.5 [facility] GM/DL [facility] RDW 13.3 11.6 - 14.4 % [facility] Platelets 126 (L) 150 - 450 K/CU [facility] MM [facility] MPV 9.0 (L) 9.4 - 12.4 fL [facility] nRBC 0 0 - 0 /100 WBC [facility] % Neutros 65 % [facility] % Lymphs 20 % [facility] % Monos 13 % [facility] % Eos 2 % [facility] % Baso 1 % [facility] # Neutros 4.02 1.78 - 5.38 [facility] # Lymphs 1.23 (L) 1.32 - 3.57 [facility] # Monos 0.82 0.30 - 0.82 [facility] # Eos 0.12 0.04 - 0.54 [facility] # Baso 0.03 0.01 - 0.08 [facility] Immature 0 0 - 1 % [facility] Granulocytes-Relativ [facility] Specimen Blood Performing Organization Address City/State/Zipcode Phone Number [facility] [address] [place] [address] CENTER Troponin I (04/21/2020 10:30 PM CDT) Pathologist Sig nature Troponin I 0.04 (H) 0.00 - 0.03 ng/mL [facility] Specimen Blood Narrative Performed At Troponin I (TnI) levels must be interpreted [facility] in the context of the presenting [...] acidosis, acute neurological disease, and persistent tachyarrhythmia. Disaster Response Director ID - PIAYA L Performing Organization Address City/State/Zipcode Phone Number [address] [address] CENTER B-type Natriuretic Factor (BNP) (04/21/2020 10:30 PM CDT) Pathologist Sig nature BNP 1,507 (H) 0 - 100 pg/mL [facility] Specimen Blood Narrative Performed At Disaster Response Director ID - PIAYA L [facility] Performing Organization Address City/State/Zipcode Phone Number [address] [address] CENTER Basic Metabolic Panel (04/21/2020 10:30 PM CDT)Only the most recent of7 results within the time period is included. Sodium 137 136 - 145 meq/L [facility] Potassium 4.2 3.5 - 5.1 meq/L [facility] Chloride 94 (L) 98 - 107 meq/L [facility] CO2 34 (H) 22 - 29 meq/L [facility] BUN 21 7 - 21 mg/dL [facility] Creatinine 4.95 (H) 0.57 - 1.25 [facility] mg/dL [facility] Glucose 126 (H) 70 - 105 mg/dL [facility] Calcium 9.4 8.4 - 10.2 [facility] SWAYER mg/dL [facility] EGFR 14Comment: ESTIMATED mL/min/1.73 sq [facility] GFR IS NOT m [facility] ACCURATE [place] CREATININE CLEARANCE IN PREDICTING GLOMERULAR FILTRATION RATE. ESTIMATED GFR IS NOT APPLICABLE FOR DIALYSIS PATIENTS. Specimen Blood Narrative Performed At Disaster Response Director ID - PIAYA L [facility] Performing Organization Address City/State/Zipcode Phone Number [facility] [address] [place] [address] CENTER XR chest 2 views (04/21/2020 10:05 PM CDT) Specimen Narrative Performed At FINAL REPORT [facility] INDICATION: SHORTNESS OF BREATH COMPARISON: 01/04/2019 TECHNIQUE: [...] Edenilson Gutierrez MD Report Verified Date/Time: 04/21/2020 22:26:38 Procedure Note Interface, External Ris In [...] 382 ms QTC Calculation(Bazett) 457 ms R Elizabeth 50 degrees T Elizabeth 73 degrees Undetermined rhythm Nonspecific ST abnormality Abnormal ECG When compared with ECG of 16-DEC-2018 13 :58, Current undetermined rhythm precludes rh ythm comparison, needs review Confirmed by MD CORRAL MAJID ([id number]) on 020 8:10:24 PM Procedure Note Interface, External Ris In - 2020 8:10 PM CDT Ventricular Rate 86 BPM Atrial Rate 88 BPM QRS Duration 76 ms Q-T Interval 382 ms QTC Calculation(Bazett) 457 ms R Elizabeth 50 degrees T Elizabeth 73 degrees Undetermined rhythm Nonspecific ST abnormality Abnormal ECG When compared with ECG of 16-DEC-2018 13 :58, Current undetermined rhythm precludes rh ythm comparison, needs review Confirmed by MD CORRAL MAJID ( [id number]) on 2020 8:10:24 PM Performing Organization Address City/[facility]/Zipcode Phone Number GE MUSE RHYTHM STRIP - SCAN (03/07/2020 11:30 AM CDT) Narrative Performed At This result has an attachment that is no t available. POC-Glucose meter (03/03/2020 3:17 PM CDT)Only the most recent of18 results within the time period is included. POC-Glucose Meter 133 (H)Comment: 70 - 110 mg/dL [facility] : TESTED AT [address], [id number]: Disaster Response Director/Technic chris ID = [id number] for Phyllis Samson Specimen Blood Performing Organization Address City/[facility]/Zipcode Phone Number [address] [address] CENTER HEMODIALYSIS INPATIENT (03/03/2020 12:23 PM CDT) Narrative Performed At Simeon Leo RN 03/03/2020 12:24 PM HD x 3.5 hours. UF net [...] of18 resultswithin the time period is included. Pathologist Sig nature PTT 67.8 (H) 22.5 - 36.0 seconds [facility] Specimen Blood Performing Organization Address City/[facility] Phone Number [address] [address] CENTER Daily Prothrombin time/INR while on warfarin (03/03/2020 4:20 AM CDT)Only the most recent of5 resultswithin the time period is included. Pathologist Sig nature Protime 32.1 (H) 11.9 - 14.2 seconds [facility] INR 3.2 <=5.9 [facility] Specimen Blood Narrative Performed At Effective 01/28/2019: PT Reference Range [facility] Change New: 11.9-14.2 Previous: 11.7-14.7 RECOMMENDED COUMADIN/WARFARIN INR THERAPY RANGES STANDARD DOSE: 2.0-3.0 Includes: PROPHYLAXIS for venous thrombosis, systemic embolization; TREATMENT for venous thrombosis and/or pulmonary embolus. HIGH RISK: Target INR is 2.5-3.5 for patients wiht mechanical heart valves. While on warfarin. Performing Organization Address [facility] Phone Number [address] [address] CENTER HEMODIALYSIS INPATIENT (03/01/2020 12:40 PM CDT) Narrative Performed At Maria Isabel Kelly RN 03/01/2020 2:57 PM Procedure tolerated. Vital signs stable. HD duration 4 hours UF 2 L via lef t forearm AV Graft. Lab Results Component Value [...] for a procedure performed i n the OR. No GE RIS interpretation was requested. Refer to the operative report for findings. Refer to PACS for patient radiation dose i nformation. Procedure Note Interface, External Ris In - [...] 10:18 HBsAg Screen Latest Ref Range: Nonreacti ve Nonreactive HD X 3.5 hours completed. Net UF -2L VSS. Patient tolerated procedure well. Serena Rachel RN Iron, TIBC, % sat. (without ferritin) (02/27/2020 3:19 PM CDT) Pathologist Sig nature Iron 125.0 40.0 - 160.[address] [facility] ug/dL [facility] TIBC 219 (L) 250 - 450 ug/dL [facility] Iron % Saturation 57 (H) 20 - 55 % [facility] Specimen Blood Narrative Performed At Disaster Response Director ID - JOEL W [facility] Performing Organization Address [facility] Phone Number [address] [address] CENTER Ferritin (02/27/2020 3:19 PM CDT) Pathologist Sig nature Ferritin 5,182.19 (H) 5.00 - 275.[address] [facility] ng/mL [facility] Specimen Blood Narrative Performed At Disaster Response Director ID - JOEL W [facility] Performing Organization Address [facility] Network/Zipcode Phone Number [address] [address] CENTER Platelet count (02/27/2020 12:30 PM CDT) Pathologist Sig nature Platelets 116 (L) 150 - 450 K/CU MM [facility] Specimen Blood Narrative Performed At Disaster Response Director ID - [id number] [facility] No clot Performing Organization Address City/[facility]/Zipcode Phone Number [facility] [address] [place], [place] [phone] [place] Hepatitis B surface antigen (02/27/2020 10:18 AM CDT) Pathologist Sig nature HBsAg Screen Nonreactive Nonreactive [facility] Specimen Blood Narrative Performed At Specimen is considered negative for HBsAg. [facility] Performing Organization Address City/State/Zipcode Phone Number [facility] [address] [place], [place] [phone] CENTER Antibody identification (02/27/2020 8:56 AM CDT) Pathologist Sig nature ANTIBODY ID UNID IgG [place] (BEAKER) Antibody Consult SIGNED OUTComment: An [place] IgG antibody of undetermined specificity is detected, transfuse crossmatch compatible RBCs.Electronic Signature: Cale Shirley M.D. Specimen Performing Organization Address City/[facility]/Zipcode Phone Number [place] XR wrist 2 [...] Bhavin Artis MD Report Verified Date/Time: 02/27/2020 09:19:08 Reading Location: [facility] B1 C013Y CT Body R eading Room [...] Verified Date/Time: 02/27/2020 0 9:19:08 Reading Location: [facility] C013Y CT Body R eading Room Performing Organization Address City/State/Zipcode Phone Number GE RIS Potassium (02/27/2020 7:53 AM CDT) Pathologist Sig nature Potassium 5.0 3.5 - 5.1 meq/L [facility] Specimen Blood Narrative Performed At Disaster Response Director ID - PIAYA L [facility] Performing Organization Address City/State/Zipcode Phone Number [facility] [address] [place] [address] CENTER XR hip 2 views left (02/27/2020 [...] Mihaela Mahajan MD Report Verified Date/Time: 02/27/2020 07:23:52 Reading Location: [facility] B1 C013V Neuro [place] ding Room Procedure Note Interface, External Ris In [...] Verified Date/Time: 02/27/2020 0 7:23:52 Reading Location: [address] Room Performing Organization Address [facility] Phone Number GE [facility]IS XR pelvis 1 [...] Mihaela Mahajan MD Report Verified Date/Time: 02/27/2020 07:23:52 Reading Location: [address] Room Procedure Note Interface, External Ris [...] Verified Date/Time: 02/27/2020 0 7:23:52 Reading Location: [address] Room Performing Organization Address [facility] Phone Number GE [facility]IS SARS-CoV2/RT-PCR (Asymptomatic ONLY) (02/27/2020 1:52 AM CDT) SARS-COV2/RT-PCR Negative Not Detected, [facility] Negative [facility] SARS-COV-2 BSC [facility] PERFORMING LAB [facility] Specimen Other - Nasopharyngeal wall structure (b liam structure) Narrative Performed At Negative result for this test determines that [facility] SARS-CoV-2 RNA was not present in [...] the Act. Fact Sheet for Healthcare Providers: https://www.[employer].gis.to/sites/default/files/pro duct/documents/Fact_Sheet_HC_Providers_Lyra_SA RS-CoV-2.pdf Fact Sheet for Healthcare Patients: https://www.[employer].gis.to/sites/default/files/pro duct/documents/Fact_Sheet_Patients_Lyra_SARS-C oV-2.pdf Performing Laboratory: [address] [address] Performing Organization Address City/[facility] Phone Number [address] [address] CENTER Type and screen, automated (02/27/2020 1:23 AM CDT) ABO/RH AUTOMATED AB POSITIVE [facility] (BEAKER) [facility] Ab Scrn POSITIVEComment: [facility] ECHO 2 [facility] Specimen Blood Performing Organization Address [facility] Phone Number [address] [address] Phosphorus (02/27/2020 1:23 AM CDT) Pathologist Sig nature Phosphorus 7.3 (H) 2.3 - 4.7 mg/dL [facility] Specimen Blood Narrative Performed At Disaster Response Director ID - PIJESSE L [facility] Performing Organization Address [facility] Phone Number [address] [address] CENTER Magnesium (02/27/2020 1:23 AM CDT) Pathologist Sig nature Magnesium 1.9 1.6 - 2.6 mg/dL [facility] Specimen Blood Narrative Performed At Disaster Response Director ID - PIAYA L [facility] Performing Organization Address City/[facility] Phone Number [address] [address] CENTER Comprehensive metabolic panel (02/27/2020 1:23 AM CDT) Protein, Total 9.6 (H) 6.0 - 8.3 [facility] gm/dL [facility] Albumin 4.3 3.5 - 5.0 [facility] g/dL [facility] Alkaline 85 40 - 150 U/L [facility] Phosphatase [facility] Total Bilirubin 1.1 0.2 - 1.2 [facility] mg/dL [facility] Sodium 132 (L) 136 - 145 [facility] meq/L [facility] Potassium 5.9 (H) 3.5 - 5.1 [facility] meq/L [facility] Chloride 91 (L) 98 - 107 [facility] meq/L [facility] CO2 24 22 - 29 meq/L [facility] BUN 58 (H) 7 - 21 mg/dL [facility] Creatinine 8.80 (H) 0.57 - 1.25 [facility] mg/dL [facility] Glucose 99 70 - 105 [facility] mg/dL [facility] Calcium 9.2 8.4 - 10.2 [facility] mg/dL [facility] AST 44 (H) 5 - 34 U/L [facility] ALT 36 6 - 55 U/L [facility] EGFR 7Comment: mL/min/1.73 [facility] ESTIMATED GFR IS sq [facility] NOT [facility] CREATININE CLEARANCE IN PREDICTING GLOMERULAR FILTRATION RATE. ESTIMATED GFR IS NOT APPLICABLE FOR DIALYSIS PATIENTS. Specimen Blood Narrative Performed At Disaster Response Director ID - PIAYA L [facility] Performing Organization Address City/State/Zipcode Phone Number [facility] [address] [place] [address] CENTER after 07/15/2019 Insurance Payer Benefit Plan / Subscriber ID Effective Dates Phone Addre ss Type Group MEDICARE MEDICARE A B [id number] 2010-Present Medicare CDC REVIEW CDC REVIEW [id number] 2020-[place] [address] Advance Directives For more information, please contact: [phone] Code Status Date Activated Date Inactivated Comments [...]
[2020-07-15 02:30] LABS: Absolute Lymphocytes (CBC) 1.2 K/uL (0.7-4.9); Basophils % 0.9 % (0-1.3); Lymphocytes % 17.9 % (15.3-44.8); MPV 6.6 fL (7.6-11.3); Protime INR 1.67; RBC Red Blood Cell Count 2.77 M/uL (4.33-5.43)
[2020-07-15] MEDS ORDERED: NA CHLORIDE 0.9% 500 ML ONE (02:33)
[2020-07-15] MEDS ORDERED: METOPROLOL TAR 25 MG TAB ONE (02:33)
--- OUTSIDE RECORDS SUMMARY | 2020-07-15 02:39 | XMS REPORT | Continuity of Care Document ---
:1955 Author Organization [facility] t Address [address] [place] [address] Care Team Providers Name Role Phone UNKNOWN, REFFERING Primary Care Physician Unavailable MELVIN SHER Attending Clinician Unavailable Calos COMBS, Rain Soriano Attending Clinician Unavailable Angela Mcmahon MD Attending Clinician Noe Rivera MD Attending Clinician Wally PÉREZ Attending Clinician Sharon COMBS Attending Clinician Unavailable Bety PÉREZ, Bernadette Attending Clinician Mckenna Samayoa CRNA Attending Clinician Juju PÉREZ Attending Clinician Carlos Centeno CRNA Attending Clinician Trevor COOMBS Attending Clinician Amanda Sevilla MD Attending Clinician Estee Peoples Attending Clinician Unavailable Corey PÉREZ Attending Clinician Nik PÉREZ V. Attending Clinician Yvonne Amador Attending Clinician Mandy PÉREZ Attending Clinician MANDY Attending Clinician Unavailable Joelle Ocampo MD Attending Clinician Arnold Ware MD [...] ELIANA Attending Clinician Unavailable SHILA JAFFE MD, M.D. Attending Clinician Unavailable LISA Admitting Clinician Unavailable JOELLE OCAMPO Admitting Clinician Unavailable KAZ TURPIN Admitting Clinician Unavailable TROY SOLANO Admitting Clinician Unavailable SANJUANA BREWER Admitting Clinician Unavailable Xavier HOLLOWAY Admitting Clinician Unavailable ELIANA Admitting Clinician Unavailable SHILA JAFFE MD, M.D., M Admitting Clinician Unavail able Payers Payer Name Policy Type Policy Effective Date Expiration Date Sour ce Number MEDICAREMEDICARE PART [id number] 2010 [facility] A AND 00:00:00 Buddhist [id number] [place] [id number] 2010 CHARISMA Abraham [id number] 2009- 00:00:00 - M [facility] CDC REVIEWCDC [id number] 2020 CHARISMA Diamond [id number] 00:00:00 - [address] [address] Problems Condition Condition Condition Status Onset Resolution Last Treating Co mments Source Name Details Category Date Date Treatment Clinician Date Respirator Respirator Disease Active 2019-09 H oufestus y failure, y failure, 0-05 Me th[facility] post-opera post-opera 00:00: st tive tive 00 Atelectasi Atelectasi Disease Active 2019-09 [place] s, right s, right 0-05 Method i 00:00: st 00 S/P S/P Disease Active 2019-09 L[facility]pez thoracotom thoracotom 0-02 Me thodi y (Left) y (Left) 00:00: st 00 Asymptomat Asymptomat Disease Active 2019-09 [facility] ic HIV ic HIV 0-02 Methodi infection infection 00:00: st 00 Right Right Disease Active 2019-09 [place] ventricula ventricula 0-02 Ut thodi r r 00:00: st dysfunctio dysfunctio 00 n n Nonrheumat Nonrheumat Disease Active 2019-09 [place] ic ic 0-02 [facility] tricuspid tricuspid 00:00: st valve valve 00 regurgitat regurgitat ion ion ESRD (end ESRD (end Disease Active 2019-09 [facility] stage stage 0-02 [facility] renal renal 00:00: st disease) disease) 00 S/P MVR S/P MVR Disease Active 2019-09 [place] (mitral (mitral 0-02 [facility] valve valve 00:00: st replacemen replacemen 00 t/ t/ Mechanical Mechanical ) ) Current Current Disease Active 2019-09 [place] use of use of 0-02 [facility] anticoagul anticoagul 00:00: st ant ant 00 therapy therapy Shortness Shortness Disease Active [facility] of breath of breath 9-07 Meth lora 00:00: st 00 Empyema Empyema Disease Active [place] 9-07 Methodi 00:00: st 00 Fractured Fractured Disease Active [facility] femoral femoral 6-26 [facility] neck neck 00:[facility]: Medical 00 [place] Drug-induc Drug-induc Disease Active [facility] ed ed 4-22 [facility] - thrombocyt thrombocyt 00:00: Me dical openia openia 00 Center S/P S/P Disease Active [facility] R-thoracot R-thoracot -17 [facility]ush[facility] kes - nilesh, nilesh, 00:00: Medical decort, decort, 00 Center 12/17 by 12/17 by Sam Vargas Recurrent Recurrent Disease Active 2017-[address] [facility] [facility] right right 2-12 [facility] - pleural pleural 00:00: Medical effusion effusion 00 Center Pleural Pleural Disease Active 2017-[address] effusion effusion 1-27 [facility] - 00:00: Medical 00 [place] Chronic Chronic Disease Active [facility] anticoagul anticoagul 9-26 Khushbu kes - ation ation 00:00: Medical 00 [place] Scrotal Scrotal Disease Active [facility] edema edema 9-26 [facility] - 00:00: Medical 00 Center Groin [...] (end Disease Active [facility] stage stage 01-09 [facility] - renal renal 00:00: Medical disease) disease) 00 Center 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 01-09 Khushbu kes - ciency ciency 00:00: Medical [...] Hepatic Disease Active [facility] cirrhosis cirrhosis 12-03 [facility] - due to due to 00:00: Medical chronic chronic 00 Center hepatitis hepatitis C C infection infection HTN HTN Disease Active [facility] (hypertens (hypertens 3-19 Khushbu kes - ion) ion) 00:00: Medical 00 Center ESRD on ESRD on Disease Active [facility] hemodialys hemodialys [facility]ushbu kes - is is Medical [facility] Postoperat Postoperat Disease Resolve 2019-092020-06-06 2020-06-06 [place] samreen samreen d 0-02 00:00:00 12:31:43 Method i hypotensio hypotensio 00:00: st n n 00 Allergies, Adverse Reactions, Alerts Allergy Allergy Status Severity Reaction(s) Onset Inactive Treating Comm ents Source Name Type Date Date Clinician Codeine Drug Active Other (See Pt denies [facility] Intolera Comments) 12-02 intoleran Khushbu kes - nce 00:00: ce to Medical 00 pain meds Center 12/18/18 Family History Family Member Diagnosis Comments Start Date Stop Date Source Natural father Diabetes [facility] Natural mother Heart disease [facility] Social History Social Habit Start Date Stop Date Quantity Comments Source History [facility] Meth odist Alcohol Std Drinks History [facility] Meth odist Alcohol Binge Sex Assigned At [facility] ethodist Tobacco use and 2020-06-21 2020-06-21 Never used [facility] ethodist exposure 00:00:00 00:00:00 Alcohol intake 2020-06-21 2020-06-21 [facility] thodist 00:00:00 00:00:00 non-drinker (finding) History SDTX 2019-09-12 2019-09-12 1 [place] Meth odist Alcohol Frequency 00:00:00 00:00:00 Smoking Status Start Date Stop Date Source Never smoker [place] Methodis t Medications Ordered Filled Start Stop Current Ordering Indication Dosage Frequency Signature Comments Components Source Medication Medication Date Date Medication? Clinician (SIG) Name Name levoFLOXaci 2019-09- No 250mg Q2D Take 1 [place] n 0-31 07-03 tablet [facility] (LEVAQUIN) 00:00: 23:59 ([address] 250 MG 00 :00 total) by tablet mouth every other day for 5 days. dapsone 100 2019-09 2020- Yes 100mg QD Take 1 [place] MG tablet 0- 11- tablet Methodi 00:00: 23:59 ([address] 00 :00 total) by mouth daily for 30 days. epoetin 2019-09 2020- Yes 8000U Q.[id number] Infuse 2 [place] jennifer-epbx 0-30 07- [id number] mL (8,000 [facility] (RETACRIT) 00:00: 23:[address] 4,000 00 :00 total) unit/mL into a solution venous injection catheter 3 (three) times a week for 30 days. NIFEdipine 2019-09 2020- Yes 30mg QD Take 1 [place] XL 0-30 07- tablet (30 [facility] (PROCARDIA 00:00: 23:59 mg total) s t XL) 30 MG 00 :00 by mouth 24 hr daily for tablet 30 days. carvedilol 2019-09 2020- No 12.5mg Q.5D Take 12.5 [facility] (COREG) 0-27 10-27 mg by Methodi 12.5 MG 22:50: 00:[address] tablet 38 :00 (two) times a day with meals. sulfamethox 2019-09 2020- No 1{tbl} Q.5D Take 1 [place] azole-trime 0-27 10-27 tablet by [address] thodi thoprim 22:50: 00:[address] (BACTRIM 38 :00 (two) DS) 800-160 times a mg per day. tablet codeine-gua 2019-09 2020- No acute pain 5mL Q.[id number] Take 5 m L [facility] ifenesin 0-27 10- [id number] by mouth 3 [facility] (GUAIFENESI 22:50: 00:00 3D (three) st N AC) 38 :00 times a 10-100 mg/5 day as mL liquid needed for cough .acute pain. clotrimazol 2019-09- No Q.5D Apply [place] e 0-27 10- topically [facility] (LOTRIMIN) 22:50: 00:00 2 (two) st 1 % cream 38 :00 times a day. raltegravir 2019-09 Yes 400mg Q.5D Take 400 [place] (ISENTRESS) 0-27 mg by Methodi 400 mg 22:50: mouth 2 st tablet 33 (two) times a day. traMADol 2019-09 Yes acute pain 50mg Q6H Take 50 mg [facility] (ULTRAM) 50 0-27 by mouth Meth lora mg tablet 22:50: every 6 st 33 (six) hours as needed for moderate pain .acute pain. ergocalcife 2019-09 Yes [id number] Q7D Take [place] rol 0-27 50,000 [facility] (VITAMIN 22:50: Units by st D2) 50,000 33 mouth once unit a week. capsule pantoprazol 2019-09 Yes 40mg QD Take 40 mg L[facility] e 0-27 by mouth [facility]i (PROTONIX) 22:50: daily. st 40 MG EC 33 tablet warfarin 2019-09 Yes 10mg QD Take 10 mg [facility] (COUMADIN) 0-27 by mouth Metho di 10 MG 22:50: daily. st tablet 33 Take 105mg on Saturday, , and Saturday and 1 tablet on all other days lopinavir-r 2019-09 Yes 2{tbl} Q.5D Take 2 [place] itonavir 0-27 tablets by Metho di (KALETRA) 22:50: mouth 2 st 200-50 mg 33 (two) per tablet times a day. prednisoLON 2019-09 Yes 1[drp] Q.25D 1 drop 4 [facility] E sodium 0-27 (four) Methodi phosphate 1 22:50: times a st % 33 day. ophthalmic solution lamiVUDine 2019-09 Yes Q.5D Take by [place] (EPIVIR) 10 0-27 mouth 2 Metho di mg/mL 22:50: (two) st solution 33 times a day. metFORMIN 2019-09 2020- No 1000mg Q.5D Take 1,000 [facility] (GLUCOPHAGE 0-27 10-27 mg by Method i ) 1,000 mg 14:23: 00:[address] tablet 49 :00 (two) times a day with meals. ipratropium 2019-09 Yes 3mL Q.5D Take 3 mL [place] -albuteroL 0-27 by [facility] (DUO-NEB) 00:00: nebulizati st 0.5-2.5 00 on 2 (two) mg/3 mL times a nebulizer day. docusate 2019-09- Yes 100mg Q.5D Take 1 [place] sodium 0-27 11-26 capsule [facility]i (COLACE) 00:00: 23:59 ([address] 100 MG 00 :00 total) by capsule mouth 2 (two) times a day for 30 days. gabapentin 2019-09- Yes 300mg QD Take 1 [facility] (NEURONTIN) 0-27 11-26 capsule Meth lora 300 mg 00:00: 23:59 ([address] capsule 00 :00 total) by mouth nightly for 30 days. polyethylen 2019-09 2020- Yes 17g Q.5D Take 17 g L[facility]pez e glycol 0-27 11-26 by mouth 2 Meth lora (MIRALAX) 00:00: 23:59 (two) st 17 gram 00 :00 times a packet day for 30 days. sennosides- 2019-09 2020- Yes 1{tbl} Q.5D Take 1 [place] docusate 0-27 11-26 tablet by Metho di sodium 00:00: 23:[address] (SENOKOT-S) 00 :00 (two) 8.6-50 mg times a per tablet day for 30 days. simethicone 2019-09 2020- Yes 80mg Q6H Chew 1 [facility] (MYLICON) 0- tablet (80 Met hodi 80 MG 00:00: 23:59 mg total) st chewable 00 :00 every 6 tablet (six) hours as needed for flatulence for up to 30 days. metFORMIN 2019-09 2020- Yes 500mg Q.5D Take 0.5 [place] (GLUCOPHAGE 0-27 - tablets Meth lora ) 1,000 mg 00:00: 23:59 ([address] tablet 00 :00 total) by mouth 2 (two) times a day with meals for 30 days. multivitami 2020-0 Yes 1{tbl} QD Take [address] [facility] with 7-02 tablet by [facility] - minerals 17:41: mouth Medical tablet 43 daily. [place] cholecalcif 2019-0 Yes Take by [facility] gavin, 7-02 mouth. [facility] - vitamin D3, 17:41: Medica l 2,000 unit 43 Center [facility] lopinavir-r 2020-0 Yes 2{tbl} Q.5D Take [address] itonavir 7-02 tablets by [facility] - (KALETRA) 17:41: mouth 2 Medic al 200-50 mg 43 (two) Center per tablet times daily. raltegravir 2020-0 Yes 400mg Q.5D Take [address] (ISENTRESS) 7-02 mg by [facility] - 400 mg 17:41: mouth 2 Medical tablet 43 (two) Center times daily. aspirin 81 2020-0 Yes 81mg QD Take [address] MG EC 7-02 by mouth [facility] - tablet 17:41: daily. Medical 43 Center atorvastati 2020-0 Yes 20mg QD Take [address] n (LIPITOR) 7-02 by mouth Luke s - 20 MG 17:41: daily. Medical tablet 43 Center ergocalcife 2020-0 Yes [id number] Q7D Take [facility] rol 7-02 50,000 [facility] - (VITAMIN 17:41: Units by Medic al D2) 50,[address] unit a week. capsule calcium 2020-0 Yes 667mg Take 667 [facility] acetate,shayla 7-02 mg by [facility] - sphat bind, 17:41: mouth 3 Med ical (PHOSLO) 43 (three) Center 667 mg times capsule daily with meals. lamiVUDine Yes HIV 25mg QD Take [address] (EPIVIR) 10 7-02 infection by mouth [facility] - mg/mL 17:41: daily. Medical solution 43 Center carvediloL Yes 12.5mg QD Take 12.[address] (COREG) 7-02 mg by [facility] - 12.5 MG 17:41: mouth Medical tablet 43 daily. Center senna-docus 2020- No 2{tbl} QD Take [address] ate 03-03- tablets by [facility] - (SENOKOT S) 00:00: 23:59 mouth Medi shakira 8.6-50 mg 00 :00 nightly. Center per tablet HYDROcodone 2019- No 1{tbl} Take [address] -acetaminop 03-03 07-12 tablet by Khushbu alan (NORCO 00:00: 23:59 mouth Medic al 5-325) 00 :00 every 6 Center 5-325 mg (six) per tablet hours as needed for Pain for up to 10 days. Max Daily Amount: 4 tablets oseltamivir 2019- No 30 mg [place] (TAMIFLU) 09-12 immediatel Met hodi 30 MG 00:00: 00:[address] capsule 00 :00 and 30 mg after dialysis. 3 dialysis days. ondansetron 2019- No 4mg Q8H Take 1 [facility] ODT 09-12-16 tablet (4 Methodi (ZOFRAN-ODT 00:00: 23:59 mg [...] QD Take [address] [facility] [facility] (COZAAR) 50 5-07 05-06 tablet (50 L ukes - MG tablet 00:00: 23:59 mg total) Me dical 00 :00 by mouth Center daily. warfarin 2017-[address] [facility] (COUMADIN) 10-21 patient [facility] - 6 MG tablet 00:00: [place] [id number] ns for Center details, 12 mg on Saturday, Saturday and Saturday, and 11 mg on Saturday, , Saturday, Saturday. carvedilol 2017-09- No 12.5mg Q.5D Take [address] (COREG) 10-21 12-19 tablet [facility] - 12.5 MG 00:00: 23:59 (12.5 mg Medic al tablet 00 :00 total) by Center mouth 2 (two) times daily No more refills through my office. Immunizations Ordered Immunization Filled Immunization Date Status Commen ts Source Name Name FLUCELVAX QUAD PF 2020-05-24 Completed [place] 00:00:00 Buddhist Vital Signs Vital Name Observation Time Observation Value Comments Source Heart rate 2020-06-28 20:55:00 104 /min [place] Buddhist Respiratory rate 2020-06-28 20:55:00 18 /min Luis Wilson Oxygen saturation in 2020-06-28 20:43:00 94 /min [place] Buddhist Arterial blood by Pulse oximetry Systolic blood 2020-06-28 19:35:23 123 mm[Hg] Damaris n Buddhist pressure Diastolic blood 2020-06-28 19:35:23 73 mm[Hg] Bert on Buddhist pressure Body temperature 2020-06-28 19:35:23 36.44 Marjorie Luis belcher Buddhist Body weight 2020-06-28 03:41:29 59.784 kg [place] Buddhist BMI 2020-06-28 03:41:29 20.64 kg/m2 [place] Buddhist Body height 2020-06-02 12:50:00 170.2 cm [place] Buddhist Systolic blood 2020-04-21 23:45:00 173 mm[Hg] [facility] pressure [facility] Diastolic blood 2020-04-21 23:45:00 84 mm[Hg] [facility] rate 2020-04-21 23:45:00 87 /min [facility] Body temperature 2020-04-21 23:45:00 36.72 Marjorie [facility] Respiratory rate 2020-04-21 23:45:00 17 /min [facility] Oxygen saturation in 2020-04-21 23:45:00 98 /min [facility] Arterial blood by Medical Ce nter Pulse oximetry Body height 2020-04-21 20:57:00 170.2 cm [facility] Body weight 2020-04-21 20:57:00 69.854 kg [facility] BMI 2020-04-21 20:57:00 24.12 kg/m2 [facility] Procedures Procedure Date / Time Performing Clinician Source Performed [id number] 2020-06-29 00:00:00 ENCPL [id number] 2020-06-29 00:00:00 ENCPL [id number] 2020-06-29 00:00:00 ENCPL [id number] 2020-06-29 00:00:00 ENCPL [id number] 2020-06-29 00:00:00 ENCPL [id number] 2020-06-29 00:00:00 ENCPL POC GLUCOSE 2020-06-28 18:17:00 VoJuju Meth odist POC GLUCOSE 2020-06-28 12:58:00 VoJuju Meth odist POC GLUCOSE 2020-06-28 08:06:00 Juju Boland Meth odist BASIC METABOLIC PANEL 2020-06-28 03:08:00 Faustina Persaud on Buddhist [place] ESTIMATED GFR 2020-06-28 03:08:00 Faustina Persaud Met hodist [place] PROTHROMBIN TIME WITH INR 2020-06-28 02:49:00 Faustina Persaud Buddhist [place] HC COMPLETE BLD COUNT 2020-06-28 02:49:00 Faustina Persaud on Buddhist W/AUTO DIFF [place] POC GLUCOSE 2020-06-27 21:30:00 Juju Boland Meth odist POC GLUCOSE 2020-06-27 18:38:00 Juju Boland Meth odist POTASSIUM LEVEL 2020-06-27 15:44:00 Rashaun Amezcua Meth odist Bharatkumar POC GLUCOSE 2020-06-27 15:08:00 Vo, Juju López Eliezer odnatalie CT CHEST WO CONTRAST 2020-06-27 13:20:49 Vo, Juju López Buddhist HEMODIALYSIS 2020-06-27 06:57:40 Rashaun Amezcua Meth odist Bharatkumar PROTHROMBIN TIME WITH INR 2020-06-27 06:14:00 Vo, Juju Wilson HC COMPLETE BLD COUNT 2020-06-27 06:14:00 Vo, Juju barahona Buddhist W/AUTO DIFF BASIC METABOLIC PANEL 2020-06-27 06:14:00 Vo, Juju barahona Buddhist ESTIMATED GFR 2020-06-27 06:14:00 Vo, Juju López Meth odist SMEAR REVIEW 2020-06-27 06:14:00 Vo, Juju Martins odist COVID-19 QUALITATIVE PCR 2020-06-27 06:00:00 Vo, Juju Wilson XR CHEST 1 VW PORTABLE 2020-06-26 22:56:48 Vo, Juju barrios Buddhist POC GLUCOSE 2020-06-26 20:35:00 Vo, Juju López Meth odist POC GLUCOSE 2020-06-26 17:33:00 Vo, Juju López Meth odist POC GLUCOSE 2020-06-26 11:57:00 Vo, Juju López Meth odist POC GLUCOSE 2020-06-26 07:19:00 Vo, Juju López Meth odist HC COMPLETE BLD COUNT 2020-06-26 06:20:00 Minerva Carvajal Trip mortensen Buddhist W/AUTO DIFF BASIC METABOLIC PANEL 2020-06-26 06:20:00 Minerva Carvajal Trip mortensen Buddhist MAGNESIUM LEVEL 2020-06-26 06:20:00 Minerva Carvajal ethodist PHOSPHORUS LEVEL 2020-06-26 06:20:00 Minerva Carvajal Buddhist ESTIMATED GFR 2020-06-26 06:20:00 Minerva Carvajal ethodist SMEAR REVIEW 2020-06-26 06:20:00 Minerva Carvajal ethodist PROTHROMBIN TIME WITH INR 2020-06-26 04:40:00 Vo, Juju Wilson PARTIAL THROMBOPLASTIN 2020-06-26 04:40:00 Vo, Juju Noel on Buddhist TIME (PTT) POC GLUCOSE 2020-06-25 21:11:00 Vo, Juju López Meth odist POC GLUCOSE 2020-06-25 18:21:00 Vo, Juju López Meth odist POC GLUCOSE 2020-06-25 12:04:00 Vo, Juju López Meth odist POC GLUCOSE 2020-06-25 08:28:00 Vo, Juju Martins odist BASIC METABOLIC PANEL 2020-06-25 04:00:00 SutRashaun pate Buddhist Bharatkumar PARTIAL THROMBOPLASTIN 2020-06-25 04:00:00 Vo, Juju barrios Buddhist TIME (PTT) PROTHROMBIN TIME WITH INR 2020-06-25 04:00:00 Vo, Juju [place] Buddhist ESTIMATED GFR 2020-06-25 04:00:00 Vo, Juju Martins sunnyist HC COMPLETE BLD COUNT 2020-06-25 04:00:00 Vo, Juju Wilson W/AUTO DIFF SMEAR REVIEW 2020-06-25 04:00:00 Vo, Juju Martins odist POC GLUCOSE 2020-06-24 21:01:00 Vo, Juju Martins sunnyist TRANSFUSE RED BLOOD CELLS 2020-06-24 16:26:45 Rashaun Amezcuaton Buddhist Bharatkumar POC GLUCOSE 2020-06-24 11:46:00 Vo, Juju Martins odist TYPE AND SCREEN 2020-06-24 10:30:00 Rashaun Amezcua Meth odist Bharatkumar PREPARE RBC 2020-06-24 10:30:00 Rashaun Amezcua Meth odist Bharatkumar HEMODIALYSIS 2020-06-24 08:17:42 Rashaun Amezcua Meth odist Bharatkumar POC GLUCOSE 2020-06-24 07:40:00 Vo, Juju Martins odist BASIC METABOLIC PANEL 2020-06-24 03:07:00 Rashanu Amezcua Buddhist Bharatkumar PHOSPHORUS LEVEL 2020-06-24 03:07:00 Rashaun Amezcua Met hodist Bharatkumar ESTIMATED GFR 2020-06-24 03:07:00 Joseph Rivera Meth odist Ebrahim PROTHROMBIN TIME WITH INR 2020-06-24 02:45:00 Joseph Riveraton Buddhist Ebrahim PARATHYROID HORMONE 2020-06-24 02:45:00 Rashaun Amezcua Bharatkumar CBC HEMOGRAM 2020-06-24 02:45:00 Joseph Juliana Edenilson López Buddhist PARTIAL THROMBOPLASTIN 2020-06-24 02:45:00 Vo, Juju Noel on Buddhist TIME (PTT) POC GLUCOSE 2020-06-23 21:07:00 Vo, Juju López Meth odist PARTIAL THROMBOPLASTIN 2020-06-23 20:05:00 Vo, Juju Noel on Buddhist TIME (PTT) XR CHEST 1 VW PORTABLE 2020-06-23 18:23:26 Vo, Juju Noel on Buddhist POC GLUCOSE 2020-06-23 18:02:00 Vo, Juju López Meth odist PARTIAL THROMBOPLASTIN 2020-06-23 13:00:00 Joseph Rivera on Buddhist TIME (PTT) Ebrahim POC GLUCOSE 2020-06-23 12:38:00 Vo, Juju López Meth odist POC GLUCOSE 2020-06-23 08:24:00 Vo, Juju López Meth odist BASIC METABOLIC PANEL 2020-06-23 04:00:00 Joseph Rivera Buddhist Ebrahim HC COMPLETE BLD COUNT 2020-06-23 04:00:00 Joseph Rivera Buddhist W/AUTO DIFF Ebrahim MAGNESIUM LEVEL 2020-06-23 04:00:00 Joseph Rivera Meth odist Ebrahim PHOSPHORUS LEVEL 2020-06-23 04:00:00 Joseph Rivera Met hodist Ebrahim PROTHROMBIN TIME WITH INR 2020-06-23 04:00:00 Joseph Riveraton Buddhist Ebrahim PARTIAL THROMBOPLASTIN 2020-06-23 04:00:00 Vo, Juju Noel on Buddhist TIME (PTT) ESTIMATED GFR 2020-06-23 04:00:00 Vo, Juju López Meth odist SMEAR REVIEW 2020-06-23 04:00:00 Vo, Juju López Meth odist POC GLUCOSE 2020-06-22 21:35:00 Vo, Juju López Meth odist POC GLUCOSE 2020-06-22 14:01:00 Vo, Juju López Meth odist POC GLUCOSE 2020-06-22 12:21:00 Vo, Juju López Meth odist PARTIAL THROMBOPLASTIN 2020-06-22 10:16:00 Vo, Juju Noel on Buddhist TIME (PTT) POC GLUCOSE 2020-06-22 08:36:00 Juju Boland Meth odist HEMODIALYSIS 2020-06-22 07:58:47 JuliaRashaun pate Meth odist Bharatkumar BASIC METABOLIC PANEL 2020-06-22 04:40:00 Joseph Rivera Buddhist Ebrahim HC COMPLETE BLD COUNT 2020-06-22 04:40:00 Joseph Rivera Buddhist W/AUTO DIFF Ebrahim MAGNESIUM LEVEL 2020-06-22 04:40:00 DoronbassamJoseph rueda Meth odist Ebrahim PHOSPHORUS LEVEL 2020-06-22 04:40:00 Joseph Rivera Met hodist Ebrahim PARTIAL THROMBOPLASTIN 2020-06-22 04:40:00 Joseph Rivera on Buddhist TIME (PTT) Ebrahim PROTHROMBIN TIME WITH INR 2020-06-22 04:40:00 Joseph Rivera Buddhist Ebrahim ESTIMATED GFR 2020-06-22 04:40:00 Joseph Rivera Meth odist Ebrahim SMEAR REVIEW 2020-06-22 04:40:00 Joseph Rivera Meth odist Ebrahim POC GLUCOSE 2020-06-21 20:49:00 Joseph Rivera Meth odist Ebrahim POC GLUCOSE 2020-06-21 17:03:00 Joseph Rivera Meth odist Ebrahim SPIROMETRY, DIFFUSION 2020-06-21 15:26:26 John Fletcher Buddhist POC GLUCOSE 2020-06-21 12:39:00 Joseph Rivera Meth odist Ebrahim POC GLUCOSE 2020-06-21 07:42:00 Joseph Rivera Meth odist Ebrahim PROTHROMBIN TIME WITH INR 2020-06-21 04:15:00 Joseph Riveraton Buddhist Ebrahim PARTIAL THROMBOPLASTIN 2020-06-21 04:15:00 Joseph Rivera on Buddhist TIME (PTT) Ebrahim BASIC METABOLIC PANEL 2020-06-21 04:15:00 Joseph Riverato n Buddhist Ebrahim CBC WITH PLATELET AND 2020-06-21 04:15:00 Joseph Riveramadelaine n Buddhist DIFFERENTIAL Ebrahim MAGNESIUM LEVEL 2020-06-21 04:15:00 Joseph Rivera Meth odist Ebrahim PHOSPHORUS LEVEL 2020-06-21 04:15:00 Joseph Rivera Met hodist Ebrahim ESTIMATED GFR 2020-06-21 04:15:00 Joseph Rivera Meth odist Ebrahim MANUAL DIFFERENTIAL 2020-06-21 04:15:00 Joseph Rivera Buddhist Ebrahim POC GLUCOSE 2020-06-20 20:39:00 Joseph Rivera Meth odist Ebrahim POC GLUCOSE 2020-06-20 13:48:00 Joseph Rivera Meth odist Ebrahim POC GLUCOSE 2020-06-20 12:12:00 Joseph Rivera Meth odist Ebrahim HEMODIALYSIS 2020-06-20 08:02:57 JuliaRashaun pate Meth odist Bharatkumar POC GLUCOSE 2020-06-20 07:45:00 Joseph Rivera Meth odist Ebrahim PROTHROMBIN TIME WITH INR 2020-06-20 04:40:00 Joseph Rivera Kayden [place] Buddhist Ebrahim PARTIAL THROMBOPLASTIN 2020-06-20 04:40:00 Joseph Riverajon on Buddhist TIME (PTT) Ebrahim CBC HEMOGRAM 2020-06-20 04:40:00 Joseph Rivera Meth odist Ebrahim BASIC METABOLIC PANEL 2020-06-20 04:40:00 Joseph Riverato n Buddhist Ebrahim ESTIMATED GFR 2020-06-20 04:40:00 Joseph Rivera Meth odist Ebrahim POC GLUCOSE 2020-06-20 04:37:00 Joseph Rivera Meth odist Ebrahim POC GLUCOSE 2020-06-19 20:34:00 Joseph Rivera Meth odist Ebrahim POC GLUCOSE 2020-06-19 17:51:00 Joseph Rivera Meth odist Ebrahim POC GLUCOSE 2020-06-19 11:55:00 Joseph Rivera Meth odist Ebrahim POC GLUCOSE 2020-06-19 07:42:00 Joseph Rivera Meth odist Ebrahim POC GLUCOSE 2020-06-19 05:29:00 Joseph Rivera Meth odist Ebrahim HC COMPLETE BLD COUNT 2020-06-19 05:20:00 Jesus Cr Buddhist W/AUTO DIFF PROTHROMBIN TIME WITH INR 2020-06-19 05:20:00 Joseph Rivera [place] Buddhist Ebrahim PARTIAL THROMBOPLASTIN 2020-06-19 05:20:00 Joseph Rivera Bert on Buddhist TIME (PTT) Ebrahim SMEAR REVIEW 2020-06-19 05:20:00 Joseph Rivera Meth odist Ebrahim BASIC METABOLIC PANEL 2020-06-19 04:00:00 Jesus Cr Buddhist MAGNESIUM LEVEL 2020-06-19 04:00:00 Jesus Cr Meth odist PHOSPHORUS LEVEL 2020-06-19 04:00:00 Jesus Cr Met hodist ESTIMATED GFR 2020-06-19 04:00:00 Joseph Rivera Meth odist Ebrahim POC GLUCOSE 2020-06-18 21:20:00 Joseph Rivera Meth odist Ebrahim POC GLUCOSE 2020-06-18 11:53:00 Joseph Rivera Meth odist Ebrahim HEMODIALYSIS 2020-06-18 10:20:47 GoldieRashaun Meth odist Bharatkumar PROTHROMBIN TIME WITH INR 2020-06-18 09:56:00 Joseph Riveraton Buddhist Ebrahim POC GLUCOSE 2020-06-18 07:48:00 Joseph Rivera Meth odist Ebrahim HC COMPLETE BLD COUNT 2020-06-18 05:20:00 Jesus Cr Buddhist W/AUTO DIFF PARTIAL THROMBOPLASTIN 2020-06-18 05:20:00 Jesus Cr on Buddhist TIME (PTT) SMEAR REVIEW 2020-06-18 05:20:00 Joseph Rivera Meth odist Ebrahim BASIC METABOLIC PANEL 2020-06-18 04:00:00 Jesus Crto n Buddhist MAGNESIUM LEVEL 2020-06-18 04:00:00 Shaye Jesus Tiwari Rene Meth odist PHOSPHORUS LEVEL 2020-06-18 04:00:00 ShayeJesus Rene Met hodist ESTIMATED GFR 2020-06-18 04:00:00 Joseph Rivera Meth odist Ebrahim POC GLUCOSE 2020-06-17 23:28:00 Joseph Rivera Meth odist Ebrahim POC GLUCOSE 2020-06-17 13:35:00 Joseph Rivera Meth odist Ebrahim POC GLUCOSE 2020-06-17 12:47:00 Joseph Rivera Meth odist Ebrahim HI AN PERIPHERAL BLOCK 2020-06-17 10:15:57 Lisa Josephmarline Noel on Buddhist PROCEDURE FOR PAIN Ebrahim POC GLUCOSE 2020-06-17 07:25:00 Joseph Rivera Meth odist Ebrahim CBC WITH PLATELET AND 2020-06-17 04:38:00 Leydi Mensah Buddhist DIFFERENTIAL PARTIAL THROMBOPLASTIN 2020-06-17 04:38:00 Tone Orellana Buddhist TIME (PTT) SMEAR REVIEW 2020-06-17 04:38:00 JuliaRashaun pate Meth odist Bharatkumar BASIC METABOLIC PANEL 2020-06-17 04:00:00 Jesus Cr n Buddhist MAGNESIUM LEVEL 2020-06-17 04:00:00 Jesus Cr Meth odist PHOSPHORUS LEVEL 2020-06-17 04:00:00 Jesus Cr Met hodist ESTIMATED GFR 2020-06-17 04:00:00 JuliaRashaun pate Meth odist Bharatkumar PARTIAL THROMBOPLASTIN 2020-06-16 22:30:00 Tone Orellana Buddhist TIME (PTT) POC GLUCOSE 2020-06-16 21:49:00 Joseph Rivera Meth odist Ebrahim POC GLUCOSE 2020-06-16 17:30:00 Joseph Rivera Meth odist Ebrahim XR ABDOMEN 1 VW 2020-06-16 16:03:00 Joseph Rivera Meth odist Ebrahim PARTIAL THROMBOPLASTIN 2020-06-16 15:30:00 Joseph Rivera Bert on Buddhist TIME (PTT) Ebrahim POC GLUCOSE 2020-06-16 11:52:00 Joseph Rivera Meth odist Ebrahim POC GLUCOSE 2020-06-16 08:03:00 Joseph Rivera Meth odist Ebrahim PARTIAL THROMBOPLASTIN 2020-06-16 08:00:00 Tone Orellana Buddhist TIME (PTT) BASIC METABOLIC PANEL 2020-06-16 05:00:00 Jesus Cr Buddhist HC COMPLETE BLD COUNT 2020-06-16 05:00:00 Naldo Garcia W/AUTO DIFF MAGNESIUM LEVEL 2020-06-16 05:00:00 Jose Naldoestee Martins odist PHOSPHORUS LEVEL 2020-06-16 05:00:00 Jose Naldo Rene Met hodist ESTIMATED GFR 2020-06-16 05:00:00 VoJuju odist SMEAR REVIEW 2020-06-16 05:00:00 Juju Boland odist PARTIAL THROMBOPLASTIN 2020-06-16 00:30:00 Tone Orellana Buddhist TIME (PTT) POC GLUCOSE 2020-06-15 21:13:00 Joseph Rivera Meth odist Ebrahim PARTIAL THROMBOPLASTIN 2020-06-15 18:15:00 DoronbassamNoris ruedasuf Bert on Buddhist TIME (PTT) Ebrahim POC GLUCOSE 2020-06-15 17:35:00 Joseph Rivera Meth odist Ebrahim CT CHEST WO CONTRAST 2020-06-15 11:59:13 Jory Levy Buddhist PARTIAL THROMBOPLASTIN 2020-06-15 11:30:00 Tone Orellana Buddhist TIME (PTT) POC GLUCOSE 2020-06-15 08:00:00 Joseph Rivera Meth odist Ebrahim HEMODIALYSIS 2020-06-15 06:53:10 aRshaun Amezcua Meth odist Bharatkumar XR CHEST 1 VW PORTABLE 2020-06-15 06:28:00 Vo, Juju Noel on Buddhist BASIC METABOLIC PANEL 2020-06-15 02:39:00 Jesus Cr Buddhist MAGNESIUM LEVEL 2020-06-15 02:39:00 Biow, Naldo Rene Martins odist PHOSPHORUS LEVEL 2020-06-15 02:39:00 Biow, Naldo Rene Met hodist ESTIMATED GFR 2020-06-15 02:39:00 GoldieRashaun Meth odist Bharatkumar CBC WITH PLATELET AND 2020-06-15 02:00:00 Biow, Naldo barahona Buddhist DIFFERENTIAL PROTHROMBIN TIME WITH INR 2020-06-15 02:00:00 Vo, Juju faye Buddhist PARTIAL THROMBOPLASTIN 2020-06-15 02:00:00 Rashaun Amezcua on Buddhist TIME (PTT) Bharatkumar SMEAR REVIEW 2020-06-15 02:00:00 GoldieRashaun Meth odist Bharatkumar POC GLUCOSE 2020-06-15 01:41:00 Vo, Juju López Meth odist POC GLUCOSE 2020-06-14 21:50:00 Vo, Juju López Meth odist CBC HEMOGRAM 2020-06-14 18:17:00 Vo, Juju López Meth odist TROPONIN 2020-06-14 18:17:00 Miclajon Joy PaulDafne López Meth odist PARTIAL THROMBOPLASTIN 2020-06-14 18:16:00 Vo, Juju Noel on Buddhist TIME (PTT) POC GLUCOSE 2020-06-14 18:07:00 Vo, Juju López Meth odist PARTIAL THROMBOPLASTIN 2020-06-14 15:45:00 Vo, Juju Noel on Buddhist TIME (PTT) ULTRAFILTRATION 2020-06-14 12:36:13 JuliaRashaun pate Meth odist Bharatkumar POC GLUCOSE 2020-06-14 09:33:00 Vo, Juju López Meth odist XR CHEST 1 VW PORTABLE 2020-06-14 08:12:52 Shanita Miller on Buddhist POC GLUCOSE 2020-06-14 04:52:00 Vo, Juju López Meth odist PARTIAL THROMBOPLASTIN 2020-06-14 04:30:00 Vo, Juju Noel on Buddhist TIME (PTT) HC COMPLETE BLD COUNT 2020-06-14 04:30:00 Biow, Naldo barahona Buddhist W/AUTO DIFF PROTHROMBIN TIME WITH INR 2020-06-14 04:30:00 Biow, Naldo Wilson SMEAR REVIEW 2020-06-14 04:30:00 Rashaun Amezcua Meth odist Bharatkumar PREPARE RBC 2020-06-14 04:30:00 Rashaun Amezcua Meth odist Bharatkumar BASIC METABOLIC PANEL 2020-06-14 04:00:00 Jesus Cr MAGNESIUM LEVEL 2020-06-14 04:00:00 Biow, Naldo Rene Martins odist PHOSPHORUS LEVEL 2020-06-14 04:00:00 Biow, Naldo Rene Benjamin hodnatalie ESTIMATED GFR 2020-06-14 04:00:00 SutRashaun pate Meth odist Bharatkumar ECG 12-LEAD 2020-06-14 03:46:44 Miclat, Joy Martins odist TROPONIN 2020-06-14 02:00:00 Miclat, Joy Martins odist POC GLUCOSE 2020-06-14 01:08:00 VoJuju odist ECG 12-LEAD 2020-06-13 22:09:24 Miclat, Joy López Meth odist POC GLUCOSE 2020-06-13 21:50:00 Vo, Juju Martins odist CT RENAL STONE PROTOCOL 2020-06-13 21:14:42 VoJuju Buddhist TROPONIN 2020-06-13 20:00:00 Miclat, Joy López Meth odist POC GLUCOSE 2020-06-13 18:44:00 VoJuju odist HC COMPLETE BLD COUNT 2020-06-13 14:51:00 Miclat, Joy Wilson W/AUTO DIFF TROPONIN 2020-06-13 14:51:00 Miclat, Joy Martins odist PARTIAL THROMBOPLASTIN 2020-06-13 14:51:00 Miclat, Joy Noel on Buddhist TIME (PTT) PROTHROMBIN TIME WITH INR 2020-06-13 14:51:00 Miclat, Joy Wilson BASIC METABOLIC PANEL 2020-06-13 14:27:00 Miclat, Joy barahona Buddhist MAGNESIUM LEVEL 2020-06-13 14:27:00 Miclat, Joy Cast López Eliezer odist PHOSPHORUS LEVEL 2020-06-13 14:27:00 Miclat, Joy LauraDfane López Met hodist ESTIMATED GFR 2020-06-13 14:27:00 Miclat, Joy López Meth odist ECG 12-LEAD 2020-06-13 14:18:02 Vo, Juju Martins odist XR ABDOMEN 1 VW PORTABLE 2020-06-13 14:00:51 Vo, Juju mortensen Buddhist XR CHEST 1 VW PORTABLE 2020-06-13 14:00:26 Vo, Juju Noel on Buddhist POC GLUCOSE 2020-06-13 12:56:00 Vo, Juju López Meth odist HEMODIALYSIS 2020-06-13 10:56:37 Rashaun Amezcua Meth odist Bharatkumar POC GLUCOSE 2020-06-13 08:44:00 Vo, Juju López Meth odist POC GLUCOSE 2020-06-13 06:00:00 Vo, Juju López Meth odist PARTIAL THROMBOPLASTIN 2020-06-13 04:40:00 Vo, Juju Noel on Buddhist TIME (PTT) BASIC METABOLIC PANEL 2020-06-13 04:00:00 Rashaun Amezcua n Buddhist Bharatkumar ESTIMATED GFR 2020-06-13 04:00:00 Vo, Juju López Meth odist POC GLUCOSE 2020-06-12 21:25:00 Vo, Juju Martins odist COVID-19 QUALITATIVE PCR 2020-06-12 14:16:00 Naldo Garcia Buddhist POC GLUCOSE 2020-06-12 11:33:00 Vo, Juju López Meth odist POC GLUCOSE 2020-06-12 07:31:00 Vo, Juju López Meth odist PROTHROMBIN TIME WITH INR 2020-06-12 05:00:00 Vo, Juju faye Buddhist PARTIAL THROMBOPLASTIN 2020-06-12 05:00:00 John Fletcher Buddhist TIME (PTT) POC GLUCOSE 2020-06-11 21:24:00 Vo, Juju López Meth odist POC GLUCOSE 2020-06-11 17:10:00 Vo, Juju López Meth odist POC GLUCOSE 2020-06-11 11:36:00 Vo, Juju López Meth odist XR CHEST 1 VW PORTABLE 2020-06-11 09:04:51 Vo, Juju Noel on Buddhist POC GLUCOSE 2020-06-11 07:35:00 Vo, Juju López Meth odist PROTHROMBIN TIME WITH INR 2020-06-11 03:30:00 Vo, Juju faye Buddhist PARTIAL THROMBOPLASTIN 2020-06-11 03:30:00 Vo, Juju Noel on Buddhist TIME (PTT) BASIC METABOLIC PANEL 2020-06-11 03:30:00 Vo, Juju Smithto n Buddhist CBC WITH PLATELET AND 2020-06-11 03:30:00 Vo, Juju Smithto n Buddhist DIFFERENTIAL ESTIMATED GFR 2020-06-11 03:30:00 Vo, Juju López Meth odist MANUAL DIFFERENTIAL 2020-06-11 03:30:00 Vo, Juju López Buddhist POC GLUCOSE 2020-06-10 23:54:00 Vo, Juju López Meth odist POC GLUCOSE 2020-06-10 17:33:00 Vo, Juju López Meth odist US DUPLEX HEMODIALYSIS AVG 2020-06-10 16:14:06 Stoney Villa Buddhist AVF ACCESS Larry POC GLUCOSE 2020-06-10 12:20:00 Vo, Juju López Meth odist HEMODIALYSIS 2020-06-10 11:18:17 GoldieRashaun odist Bharatkumar POC GLUCOSE 2020-06-10 08:22:00 Vo, Juju López Meth odist PROTHROMBIN TIME WITH INR 2020-06-10 03:45:00 Vo, Juju faye Buddhist TOTAL IRON BINDING 2020-06-10 03:45:00 GoldieaRshaun M ethodist CAPACITY Bharatkumar FERRITIN LEVEL 2020-06-10 03:45:00 GoldieRashaun odist Bharatkumar CBC WITH PLATELET AND 2020-06-10 03:45:00 Vo, Juju barahona Buddhist DIFFERENTIAL BASIC METABOLIC PANEL 2020-06-10 03:45:00 Vo, Juju barahona Buddhist ESTIMATED GFR 2020-06-10 03:45:00 Vo, Juju López Meth odist MANUAL DIFFERENTIAL 2020-06-10 03:45:00 Vo, Juju López Buddhist PARTIAL THROMBOPLASTIN 2020-06-10 03:45:00 Vo, Juju Noel on Buddhist TIME (PTT) POC GLUCOSE 2020-06-09 21:34:00 Vo, Juju López Meth odist POC GLUCOSE 2020-06-09 20:57:00 Vo, Juju López Meth odist POC GLUCOSE 2020-06-09 17:51:00 Vo, Juju López Meth odist HEMOGLOBIN & HEMATOCRIT 2020-06-09 14:54:00 Jory Romero Buddhist POC GLUCOSE 2020-06-09 11:54:00 Vo, Juju López Meth odist FL MODIFIED BARIUM SWALLOW 2020-06-09 11:39:27 Jory Romero Buddhist XR CHEST 1 VW PORTABLE 2020-06-09 11:05:22 Julieta Brock on Buddhist PARTIAL THROMBOPLASTIN 2020-06-09 07:35:00 Vo, Juju Noel on Buddhist TIME (PTT) POC GLUCOSE 2020-06-09 07:33:00 Vo, Juju López Meth odist ECG 12-LEAD 2020-06-09 04:12:22 Viola Haddadney Rene Met hodist Elane ECG 12-LEAD 2020-06-09 03:46:06 MurrayDarrell harrison Meth odist POC GLUCOSE 2020-06-09 03:36:00 Vo, Juju López Meth odist XR CHEST 1 VW PORTABLE 2020-06-09 03:12:00 Darrell Murray on Buddhist BASIC METABOLIC PANEL 2020-06-09 03:02:00 Darrell Murray Buddhist MAGNESIUM LEVEL 2020-06-09 03:02:00 Darrell Murray Meth odist PHOSPHORUS LEVEL 2020-06-09 03:02:00 Darrell Murray Met hodist IONIZED CALCIUM 2020-06-09 03:02:00 Darrell Murray odist ESTIMATED GFR 2020-06-09 03:02:00 Ruchi Kirkpatrick Meth odist PROTHROMBIN TIME WITH INR 2020-06-09 02:42:00 Ruchi Kirkpatrick [place] Buddhist CBC WITH PLATELET AND 2020-06-09 02:42:00 Darrell Murray Buddhist DIFFERENTIAL PARTIAL THROMBOPLASTIN 2020-06-09 02:42:00 Darrell Murray on Buddhist TIME (PTT) MANUAL DIFFERENTIAL 2020-06-09 02:42:00 Ruchi Kirkpatrick Buddhist POC GLUCOSE 2020-06-09 00:37:00 Vo, Juju López Meth odist POC GLUCOSE 2020-06-08 20:15:00 Vo, Juju López Meth odist PARTIAL THROMBOPLASTIN 2020-06-08 18:50:00 Tone Orellanau ston Buddhist TIME (PTT) POC GLUCOSE 2020-06-08 15:33:00 Vo, Juju López Meth odist XR CHEST 1 VW PORTABLE 2020-06-08 12:15:00 Julieta Brock on Buddhist POC GLUCOSE 2020-06-08 11:27:00 Vo, Juju López Meth odist HEPATITIS B SURFACE 2020-06-08 10:47:00 Tammi Amezcuail López Buddhist ANTIGEN Bharatkumar PARTIAL THROMBOPLASTIN 2020-06-08 10:30:00 Vo, Juju Noel on Buddhist TIME (PTT) HEMODIALYSIS 2020-06-08 09:58:34 GoldieRashaun Meth odist Bharatkumar POC GLUCOSE 2020-06-08 07:25:00 Vo, Juju Martins odist XR CHEST 1 VW PORTABLE 2020-06-08 03:49:00 Latiff, Anatimbo Monique [place] Buddhist POC GLUCOSE 2020-06-08 03:31:00 Vo, Juju López Meth odist BASIC METABOLIC PANEL 2020-06-08 02:42:00 Latiff, Kelly Trip ston Buddhist MAGNESIUM LEVEL 2020-06-08 02:42:00 Latiff, Kelly Gutierrez ethodist ESTIMATED GFR 2020-06-08 02:42:00 Latiff, Kelly Gutierrez ethodist TYPE AND SCREEN 2020-06-08 02:35:00 Latiff, Kelly Gutierrez ethodist PREPARE RBC 2020-06-08 02:35:00 Darrell Murray López Meth odist PARTIAL THROMBOPLASTIN 2020-06-08 02:15:00 Vo, Juju Noel on Buddhist TIME (PTT) PROTHROMBIN TIME WITH INR 2020-06-08 02:15:00 KayaRuchi Ho [place] Buddhist CBC HEMOGRAM 2020-06-08 02:15:00 Latiff, Kelly López M ethodist POC GLUCOSE 2020-06-07 23:34:00 Vo, Juju López Meth odist POC GLUCOSE 2020-06-07 19:39:00 Vo, Juju López Eliezer odist XR CHEST 1 VW PORTABLE 2020-06-07 15:58:00 Julieta Brock on Buddhist POC GLUCOSE 2020-06-07 15:51:00 Vo, Juju Martins odist PROTHROMBIN TIME WITH INR 2020-06-07 12:25:00 Ruchi Kirkpatrick Buddhist POC GLUCOSE 2020-06-07 11:32:00 Vo, Juju López Meth odist POC GLUCOSE 2020-06-07 07:24:00 Vo, Juju Martins odist XR CHEST 1 VW PORTABLE 2020-06-07 04:06:00 Paul Walterrey Monique [place] Buddhist POC GLUCOSE 2020-06-07 04:00:00 Vo, Juju López Meth odist BASIC METABOLIC PANEL 2020-06-07 01:59:00 Latiff, Kelly Trip ston Buddhist MAGNESIUM LEVEL 2020-06-07 01:59:00 Latiff, Kelly López M ethodist ESTIMATED GFR 2020-06-07 01:59:00 Latiff, Kelly López M ethodist PARTIAL THROMBOPLASTIN 2020-06-07 01:35:00 Tone Orellana Buddhist TIME (PTT) CBC HEMOGRAM 2020-06-07 01:35:00 Latiff, Kelly López M ethodist ARTERIAL BLOOD GAS 2020-06-07 01:35:00 Latiff, Kelly Smithto n Buddhist POC GLUCOSE 2020-06-06 23:25:00 Vo, Juju Martins odist PARTIAL THROMBOPLASTIN 2020-06-06 18:15:00 Ruchi Kirkpatrick on Buddhist TIME (PTT) MAGNESIUM LEVEL 2020-06-06 18:15:00 RatnaniChrissy Meth odist POTASSIUM LEVEL 2020-06-06 18:15:00 RatnaniChrissy López Meth odist PHOSPHORUS LEVEL 2020-06-06 18:15:00 Ratnani, Chrissy López Met hodist IONIZED CALCIUM 2020-06-06 18:15:00 Ratnani, Chrissy López Meth odist POC GLUCOSE 2020-06-06 16:05:00 Vo, Juju López Meth odist BRONCHOSCOPY 2020-06-06 13:42:59 Jam Hoskins Buddhist XR CHEST 1 VW PORTABLE 2020-06-06 13:33:00 Tone Orellana Buddhist AFB CULTURE 2020-06-06 12:30:00 Vo, Juju López Meth odist FUNGUS CULTURE 2020-06-06 12:30:00 Vo, Juju López Meth odist POC GLUCOSE 2020-06-06 11:58:00 Vo, Juju López Meth odist RESPIRATORY CULTURE 2020-06-06 11:30:00 Vo, Juju López Buddhist AF[employer] STAIN 2020-06-06 11:30:00 Vo, Juju López Meth odist FUNGUS SMEAR 2020-06-06 11:30:00 Vo, Juju López Meth odist PARTIAL THROMBOPLASTIN 2020-06-06 11:15:00 WantTone Buddhist TIME (PTT) HEMODIALYSIS 2020-06-06 08:30:54 SutariaRashaun Meth odist Bharatkumar POC GLUCOSE 2020-06-06 07:28:00 Vo, Juju López Meth odist XR CHEST 1 VW PORTABLE 2020-06-06 05:09:52 Do, Tasneem barrios Buddhist PARTIAL THROMBOPLASTIN 2020-06-06 05:00:00 Tone Orellana Buddhist TIME (PTT) POC GLUCOSE 2020-06-06 03:52:00 Vo, Juju López Meth odist ARTERIAL BLOOD GAS 2020-06-06 02:31:00 Do, Tasneem Gutierrez ethodist IONIZED CALCIUM 2020-06-06 01:26:00 Do, Tasneem Martins odist BASIC METABOLIC PANEL 2020-06-06 01:26:00 Do, Tasneem Wilson MAGNESIUM LEVEL 2020-06-06 01:26:00 Do, Tasneem Martins odist PHOSPHORUS LEVEL 2020-06-06 01:26:00 Do, Tasneem Benjamin hodist ESTIMATED GFR 2020-06-06 01:26:00 Do, Tasneem Martins odist CBC WITH PLATELET AND 2020-06-06 01:20:00 Do, Tasneem barahona Buddhist DIFFERENTIAL MANUAL DIFFERENTIAL 2020-06-06 01:20:00 Do, Tasneem Hopeist POC GLUCOSE 2020-06-05 23:49:00 Vo, Juju López Meth odist POC GLUCOSE 2020-06-05 19:46:00 Vo, Juju López Meth odist PARTIAL THROMBOPLASTIN 2020-06-05 19:22:00 Tone Orellana Buddhist TIME (PTT) HEMOGLOBIN & HEMATOCRIT 2020-06-05 17:00:00 Tone Orellana Buddhist BASIC METABOLIC PANEL 2020-06-05 17:00:00 Paul Walter Matos Trip mortensen Buddhist ESTIMATED GFR 2020-06-05 17:00:00 Vo, Juju Rene Meth odist POC GLUCOSE 2020-06-05 15:35:00 Vo, Juju Rene Martins odist TRANSFUSE RED BLOOD CELLS 2020-06-05 15:16:20 WantTone López Buddhist XR CHEST 1 VW PORTABLE 2020-06-05 12:19:12 WantTone Trip mortensen Buddhist HEMOGLOBIN & HEMATOCRIT 2020-06-05 11:40:00 WantTone Buddhist ARTERIAL BLOOD GAS 2020-06-05 11:40:00 WantTone Buddhist POC GLUCOSE 2020-06-05 11:33:00 Vo, Juju Rene Martins odist ANTI XA, UNFRACTIONATED 2020-06-05 09:25:00 Vo, Juju belcher Buddhist PARTIAL THROMBOPLASTIN 2020-06-05 09:25:00 Vo, Juju Noel on Buddhist TIME (PTT) POC GLUCOSE 2020-06-05 07:35:00 Vo, Juju Rene Martins odist XR CHEST 1 VW PORTABLE 2020-06-05 05:41:11 Latiff Kelly faye Buddhist POC GLUCOSE 2020-06-05 04:03:00 Vo, Juju Rene Martins odist BASIC METABOLIC PANEL 2020-06-05 02:07:00 LatKelly echols Buddhist ESTIMATED GFR 2020-06-05 02:07:00 DesireeKelly ethodist MAGNESIUM LEVEL 2020-06-05 02:07:00 LatiffeKlly ethodist PHOSPHORUS LEVEL 2020-06-05 02:07:00 Latiff Mónicanena López Buddhist ANTI XA, UNFRACTIONATED 2020-06-05 01:50:00 DoTasneem Buddhist CBC HEMOGRAM 2020-06-05 01:50:00 LatkinzaKelly ethodist ARTERIAL BLOOD GAS 2020-06-05 00:07:00 LatiffKellyto n Buddhist POC GLUCOSE 2020-06-04 23:49:00 Vo, Juju López Meth odist POC GLUCOSE 2020-06-04 19:39:00 Vo, Juju López Meth odist ANTI XA, UNFRACTIONATED 2020-06-04 18:14:00 Vo, Juju belcher Buddhist PHOSPHORUS LEVEL 2020-06-04 16:00:00 Rashaun Amezcua Met hodist Bharatkumar MAGNESIUM LEVEL 2020-06-04 16:00:00 SutRashaun pate Meth odist Bharatkumar POTASSIUM LEVEL 2020-06-04 16:00:00 SutRashaun apte Meth odist Bharatkumar POC GLUCOSE 2020-06-04 15:44:00 Vo, Juju López Meth odist HEMODIALYSIS 2020-06-04 14:09:21 SutRashaun pate Meth odist Bharatkumar POC GLUCOSE 2020-06-04 12:07:00 Vo, Juju López Meth odist ANTI XA, UNFRACTIONATED 2020-06-04 10:55:00 Vo, Le Luis ton Buddhist POC GLUCOSE 2020-06-04 07:42:00 Vo, Juju Martins odist ANTI XA, UNFRACTIONATED 2020-06-04 04:30:00 Vo, Juju belcher Buddhist XR CHEST 1 VW PORTABLE 2020-06-04 04:10:00 Clair Arnett Buddhist ARTERIAL BLOOD GAS 2020-06-04 04:10:00 Clair Arnett POC GLUCOSE 2020-06-04 04:08:00 Vo, Juju López Meth odist LACTIC ACID LEVEL 2020-06-04 03:23:00 Paul Walter Matos Rene Wilson BASIC METABOLIC PANEL 2020-06-04 00:41:00 LatKelly echols Buddhist CBC HEMOGRAM 2020-06-04 00:41:00 LatiffKelly ethodist MAGNESIUM LEVEL 2020-06-04 00:41:00 Latiff, Kelly Gutierrez ethodist TYPE AND SCREEN 2020-06-04 00:41:00 Latiff, Kelly Gutierrez ethodist ESTIMATED GFR 2020-06-04 00:41:00 Latkinza, Kelly Gutierrez ethodist PREPARE RBC 2020-06-04 00:41:00 EstebanTone Ut thodist XR CHEST 1 VW PORTABLE 2020-06-04 00:30:00 Kelly Ramírez Buddhist ARTERIAL BLOOD GAS 2020-06-04 00:18:00 Latiff, Anaoreahmed Damaris n Buddhist POC GLUCOSE 2020-06-04 00:07:00 Vo, Juju López Meth odist ANTI XA, UNFRACTIONATED 2020-06-03 21:35:00 Vo, Juju Smith ton Buddhist POC GLUCOSE 2020-06-03 19:59:00 Vo, Juju López Meth odist POC GLUCOSE 2020-06-03 16:08:00 Vo, Juju López Meth odist ANTI XA, UNFRACTIONATED 2020-06-03 14:30:00 Vo, Juju Smith ton Buddhist POC GLUCOSE 2020-06-03 12:08:00 Vo, Juju López Meth odist XR ABDOMEN 1 VW PORTABLE 2020-06-03 10:38:00 Kay Sumner Buddhist ULTRAFILTRATION 2020-06-03 09:36:12 GoldieRashaun Rene Meth odist Bharatkumar ARTERIAL BLOOD GAS 2020-06-03 09:30:00 VooreAlana López Buddhist POC GLUCOSE 2020-06-03 08:04:00 Vo, Juju López Meth odist XR CHEST 1 VW PORTABLE 2020-06-03 04:26:31 Do, Tasneem barrios Buddhist POC GLUCOSE 2020-06-03 03:53:00 Vo, Juju López Meth odist COMPREHENSIVE METABOLIC 2020-06-03 02:48:00 Do, Tasneem Hopeist PANEL MAGNESIUM LEVEL 2020-06-03 02:48:00 Do, Tasneem Martins odist PHOSPHORUS LEVEL 2020-06-03 02:48:00 Do, Tasneem López Met hodist ESTIMATED GFR 2020-06-03 02:48:00 Do, Tasneem Martins odist BILIRUBIN DIRECT 2020-06-03 02:48:00 Do, Tasneem López Met hodist ANTI XA, UNFRACTIONATED 2020-06-03 02:23:00 Do, Tasneem belcher Buddhist HC COMPLETE BLD COUNT 2020-06-03 02:23:00 Do, Tasneem Wilson W/AUTO DIFF PROTHROMBIN TIME WITH INR 2020-06-03 02:23:00 Do, Tasneem faye Buddhist POC GLUCOSE 2020-06-02 23:58:00 Vo, Juju López Meth odist XR CHEST 1 VW PORTABLE 2020-06-02 23:09:10 Do, Tasneem Wilson HC CVL NON-TUNNELED INSERT 2020-06-02 22:36:38 Do, Tasneem Wilson 5YRS OR > POC GLUCOSE 2020-06-02 21:42:00 Vo, Juju chavez XR CHEST 1 VW PORTABLE 2020-06-02 21:39:47 Do, Tasneem Noel on Buddhist BASIC METABOLIC PANEL 2020-06-02 21:33:00 Do, Tasneem Wilson HC COMPLETE BLD COUNT 2020-06-02 21:33:00 Do, Tasneem Wilson W/AUTO DIFF MAGNESIUM LEVEL 2020-06-02 21:33:00 Do, Tasneem chavez PHOSPHORUS LEVEL 2020-06-02 21:33:00 Do, Tasneem lindsey PROTHROMBIN TIME WITH INR 2020-06-02 21:33:00 Do, Tasneem Wilson PARTIAL THROMBOPLASTIN 2020-06-02 21:33:00 Do, Tasneem barrios Buddhist TIME (PTT) ARTERIAL BLOOD GAS 2020-06-02 21:33:00 Do, Tasneem Gutierrez ethodist FIBRINOGEN 2020-06-02 21:33:00 Do, Tasneem chavez ESTIMATED GFR 2020-06-02 21:33:00 Do, Tasneem chavez IONIZED CALCIUM, ARTERIAL 2020-06-02 21:33:00 Do, Tasneem Wilson CONSULT CARDIAC REHAB 2020-06-02 21:26:11 Do, Tasneem Wilson PHASE 1 ECG 12-LEAD 2020-06-02 21:24:33 Do, Tasneem Martins odist ARTERIAL BLOOD GAS, 2020-06-02 20:28:00 Vo, Juju Wilson CORRECTED POTASSIUM, SYRINGE 2020-06-02 20:28:00 Vo, Juju Gutierrez ethodist SODIUM LEVEL, SYRINGE 2020-06-02 20:28:00 Vo, Juju Wilson IONIZED CALCIUM, ARTERIAL 2020-06-02 20:28:00 Vo, Juju Wilson HEMOGLOBIN, SYRINGE 2020-06-02 20:28:00 Vo, Juju Wilson LACTIC ACID, SYRINGE 2020-06-02 20:28:00 Vo, Juju Hopeist GLUCOSE LEVEL, SYRINGE 2020-06-02 20:28:00 Vo, Juju Noel on Buddhist HEMOGLOBIN & HEMATOCRIT 2020-06-02 18:55:00 Vo, Juju Smith ton Buddhist PROTHROMBIN TIME WITH INR 2020-06-02 18:55:00 Vo, Juju Kayden faye Buddhist PLATELET COUNT 2020-06-02 18:55:00 Vo, Juju López Meth odist FIBRINOGEN 2020-06-02 18:55:00 Vo, Juju López Meth odist ARTERIAL BLOOD GAS, 2020-06-02 18:23:00 Vo, Juju Rene Hopeist CORRECTED POTASSIUM, SYRINGE 2020-06-02 18:23:00 Vo, Juju López M ethodist SODIUM LEVEL, SYRINGE 2020-06-02 18:23:00 Vo, Juju Ocampo n Buddhist HEMOGLOBIN, SYRINGE 2020-06-02 18:23:00 Vo, Juju Rene Hopeist GLUCOSE LEVEL, SYRINGE 2020-06-02 18:23:00 Vo, Juju barrios Buddhist IONIZED CALCIUM, ARTERIAL 2020-06-02 18:23:00 Vo, Juju Kayden [place] Buddhist PROTHROMBIN TIME WITH INR 2020-06-02 18:23:00 Vo, Juju beverlyye Buddhist LACTIC ACID, SYRINGE 2020-06-02 18:23:00 Vo, Juju Lópze Buddhist FIBRINOGEN 2020-06-02 18:23:00 Vo, Juju López Meth odist ROTATIONAL 2020-06-02 18:23:00 Vo, Juju López Meth odist THROMBOELASTOMETRY, HEPTM AF[employer] CULTURE 2020-06-02 16:41:00 ChiUri delgado Meth odist AFB CULTURE 2020-06-02 16:40:00 Uri Nicole Meth odist SURGICAL PATHOLOGY REQUEST 2020-06-02 15:42:00 Vo, Juju cameron Buddhist ANAEROBIC CULTURE 2020-06-02 15:41:00 Uri Nicole Me thodist FUNGUS CULTURE 2020-06-02 15:41:00 Uri Nicole Meth odist AEROBIC CULTURE 2020-06-02 15:41:00 Uri Nicole Eliezer odist AFB STAIN 2020-06-02 15:41:00 Uri Nicole Meth odist GRAM STAIN 2020-06-02 15:41:00 Uri Nicole Meth odist ANAEROBIC CULTURE 2020-06-02 15:40:00 Uri Nicole Me thodist FUNGUS CULTURE 2020-06-02 15:40:00 Uri Nicole odist FUNGUS SMEAR 2020-06-02 15:40:00 Uri Nicole odist [employer] STAIN 2020-06-02 15:40:00 Uri Nicole odist TISSUE CULTURE 2020-06-02 15:40:00 Uri Nicole odist HI AN ELECTIVE 2020-06-02 14:46:21 Rene Massey Met [employer] [place] A ARTERIAL LINE 2020-06-02 14:44:12 Rene Massey Met césar [place] A ARTERIAL BLOOD GAS, 2020-06-02 14:31:00 Vo, Juju Wilson CORRECTED POTASSIUM, SYRINGE 2020-06-02 14:31:00 Vo, Juju Gutierrez ethodist SODIUM LEVEL, SYRINGE 2020-06-02 14:31:00 Vo, Juju Wilson IONIZED CALCIUM, ARTERIAL 2020-06-02 14:31:00 Vo, Juju Wilson HEMOGLOBIN, SYRINGE 2020-06-02 14:31:00 Vo, Juju Wilson GLUCOSE LEVEL, SYRINGE 2020-06-02 14:31:00 Vo, Juju Hopeist CYTOLOGY 2020-06-02 09:52:00 Vo, Juju chavez (NON-GYNECOLOGICAL) REQUEST HEMODIALYSIS 2020-06-02 07:39:58 Rashaun Amezcua Eliezer correaist Bharatkumar ANTI XA, UNFRACTIONATED 2020-06-02 03:46:00 Vo, Juju Wilson PROTHROMBIN TIME WITH INR 2020-06-02 03:46:00 Julieta Brock PARTIAL THROMBOPLASTIN 2020-06-02 03:46:00 Julieta Brockist TIME (PTT) HC COMPLETE BLD COUNT 2020-06-02 03:46:00 Vo, Juju Wilson W/AUTO DIFF BASIC METABOLIC PANEL 2020-06-02 03:46:00 Vo, Juju Wilson HEPATIC FUNCTION PANEL 2020-06-02 03:46:00 Vo, Juju Wilson ESTIMATED GFR 2020-06-02 03:46:00 Vo, Juju Martins odist ECHOCARDIOGRAM 2020-06-01 13:14:23 Ramu Alberto EvDafne López Me thodist TRANSESOPHAGEAL W DOPPLER COLORFLOW ANTI XA, UNFRACTIONATED 2020-06-01 04:35:00 Vo, Juju Wilson TRANSFUSE RED BLOOD CELLS 2020-05-31 17:12:49 JuliaRashaun pate neyda Buddhist Bharatkumar TRANSFUSE RED BLOOD CELLS 2020-05-31 16:13:36 Sutrio Rahsaun Kayden faye Buddhist Bharatkumar TYPE AND SCREEN 2020-05-31 13:30:00 Rashaun Amezcua odist Bharatkumar PREPARE RBC 2020-05-31 13:30:00 Javier Kent Eliezer odist HEMODIALYSIS 2020-05-31 12:19:32 Rashaun Amezcua odist Bharatkumar COVID-19 QUALITATIVE PCR 2020-05-31 08:16:00 Clayton Carbajal Buddhist ANTI XA, UNFRACTIONATED 2020-05-31 04:13:00 Vo, Juju Wilson HC COMPLETE BLD COUNT 2020-05-31 04:13:00 Vo, Juju barahona Buddhist W/AUTO DIFF ANTI XA, UNFRACTIONATED 2020-05-30 15:00:00 Vo, Juju Hopeist ANTI XA, UNFRACTIONATED 2020-05-30 08:52:00 Vo, Juju Wilson HEMODIALYSIS 2020-05-30 06:13:48 JuliaRashaun pate Meth odist Bharatkumar HC COMPLETE BLD COUNT 2020-05-30 01:40:00 Vo, Juju barahona Buddhist W/AUTO DIFF BASIC METABOLIC PANEL 2020-05-30 01:40:00 Vo, Juju Ocampo n Buddhist ANTI XA, UNFRACTIONATED 2020-05-30 01:40:00 Vo, Juju Wilson ESTIMATED GFR 2020-05-30 01:40:00 Vo, Juju chavez PROTHROMBIN TIME WITH INR 2020-05-29 18:05:00 Vo, Juju Wilson TTE COMPLETE, W CONTRAST, 2020-05-29 09:50:45 Vo, Juju Wilson W DOPPLER ([id number]) PROTHROMBIN TIME WITH INR 2020-05-29 04:54:00 Vo, Juju Wilson HC COMPLETE BLD COUNT 2020-05-29 04:54:00 Vo, Juju Hopeist W/AUTO DIFF BASIC METABOLIC PANEL 2020-05-29 04:54:00 Vo, Juju Wilson ESTIMATED GFR 2020-05-29 04:54:00 Vo, Juju chavez ECG PRE/POST OP 2020-05-28 22:05:05 Emmy Benson Met hodist B NATRIURETIC PEPTIDE 2020-05-28 13:00:00 Emmy Benson on Buddhist TROPONIN 2020-05-28 13:00:00 Emmy Benson Met hodist HEMODIALYSIS 2020-05-28 09:27:17 SutariaRashaun Rene Meth odist Bharatkumar XR CHEST 1 VW PORTABLE 2020-05-28 08:49:05 Vo, Juju Noel on Buddhist PROTHROMBIN TIME WITH INR 2020-05-28 03:08:00 Vo, Juju Wilson CBC HEMOGRAM 2020-05-28 03:08:00 Vo, Juju Martins odist PROTHROMBIN TIME WITH INR 2020-05-27 04:28:00 Vo, Juju Wilson HC COMPLETE BLD COUNT 2020-05-27 04:28:00 Vo, Juju Wilson W/AUTO DIFF BASIC METABOLIC PANEL 2020-05-27 04:28:00 Vo, Juju Wilson ESTIMATED GFR 2020-05-27 04:28:00 Vo, Juju chavez CT CHEST WO CONTRAST 2020-05-26 18:03:44 Vo, Juju Wilson SPUTUM CULTURE 2020-05-26 17:45:00 Vo, Juju Martins odist GRAM STAIN 2020-05-26 17:45:00 Vo, Juju chavez XR CHEST 1 VW PORTABLE 2020-05-26 13:55:00 Vo, Juju Noel on Buddhist HEMODIALYSIS 2020-05-26 07:36:17 SutariaRashaun Rene Meth odist Bharatkumar PROTHROMBIN TIME WITH INR 2020-05-26 04:04:00 Joseph Rivera Ebrahim HC COMPLETE BLD COUNT 2020-05-26 04:04:00 Vo, Juju barahona Buddhist W/AUTO DIFF BASIC METABOLIC PANEL 2020-05-26 04:04:00 Vo, Juju Wilson ESTIMATED GFR 2020-05-26 04:04:00 Vo, Juju Rene Martins odist TRANSFUSE RED BLOOD CELLS 2020-05-25 19:24:47 Vo, Juju faye Buddhist TYPE AND SCREEN 2020-05-25 14:15:00 Vo, Juju Rene Martins odist PREPARE RBC 2020-05-25 14:15:00 Vo, Juju Martins odist HEMOGLOBIN & HEMATOCRIT 2020-05-25 11:41:00 Vo, Juju Wilson XR CHEST 1 VW PORTABLE 2020-05-25 09:05:00 Kimber Becerra on Buddhist POC GLUCOSE 2020-05-25 07:31:00 Vo, Juju Rene Martins odist PARTIAL THROMBOPLASTIN 2020-05-25 04:25:00 Joseph Rivera on Buddhist TIME (PTT) Ebrahim PROTHROMBIN TIME WITH INR 2020-05-25 04:25:00 Joseph Rivera Buddhist Ebrahim PARTIAL THROMBOPLASTIN 2020-05-24 09:33:00 Joseph Rivera on Buddhist TIME (PTT) Ebrahim HEMODIALYSIS 2020-05-24 07:18:18 Rashaun Amezcua Meth odist Bharatkumar BASIC METABOLIC PANEL 2020-05-24 02:05:00 Joseph Rivera Buddhist Ebrahim HC COMPLETE BLD COUNT 2020-05-24 02:05:00 Joseph Rivera Buddhist W/AUTO DIFF Ebrahim MAGNESIUM LEVEL 2020-05-24 02:05:00 Joseph Rivera Meth odist Ebrahim PHOSPHORUS LEVEL 2020-05-24 02:05:00 Joseph Rivera Met hodist Ebrahim PROTHROMBIN TIME WITH INR 2020-05-24 02:05:00 Joseph Riveraton Buddhist Ebrahim ESTIMATED GFR 2020-05-24 02:05:00 Joseph Rivera Meth odist Ebrahim SMEAR REVIEW 2020-05-24 02:05:00 Joseph Rivera Meth odist Ebrahim PARTIAL THROMBOPLASTIN 2020-05-24 01:15:00 Joseph Rivera on Buddhist TIME (PTT) Ebrahim PARTIAL THROMBOPLASTIN 2020-05-23 16:59:00 Joseph Rivera on Buddhist TIME (PTT) Ebrahim XR CHEST 1 VW PORTABLE 2020-05-23 11:57:34 BioNaldo turner on Buddhist PARTIAL THROMBOPLASTIN 2020-05-23 10:09:00 Joseph Rivera on Buddhist TIME (PTT) Ebrahim PROTHROMBIN TIME WITH INR 2020-05-23 10:09:00 Joseph Rivera Buddhist Ebrahim PARTIAL THROMBOPLASTIN 2020-05-23 08:35:00 Joseph Rivera on Buddhist TIME (PTT) Ebrahim PROTHROMBIN TIME WITH INR 2020-05-23 04:20:00 Joseph Rivera Buddhist Ebrahim BASIC METABOLIC PANEL 2020-05-23 04:20:00 Joseph Rivera Buddhist Ebrahim HC COMPLETE BLD COUNT 2020-05-23 04:20:00 Joseph Rivera Buddhist W/AUTO DIFF Ebrahim MAGNESIUM LEVEL 2020-05-23 04:20:00 Joseph Rivera Meth odist Ebrahim PHOSPHORUS LEVEL 2020-05-23 04:20:00 Joseph Rivera Met hodist Ebrahim PARTIAL THROMBOPLASTIN 2020-05-23 04:20:00 Joseph Rivera on Buddhist TIME (PTT) Ebrahim ESTIMATED GFR 2020-05-23 04:20:00 Joseph Rivera Meth odist Ebrahim XR CHEST 1 PORTABLE 2020-05-22 10:06:20 BioNaldo turner on Buddhist PROTHROMBIN TIME WITH INR 2020-05-22 04:30:00 Joseph Rievra Buddhist Ebrahim BASIC METABOLIC PANEL 2020-05-22 04:30:00 Joseph Rivera Buddhist Ebrahim HC COMPLETE BLD COUNT 2020-05-22 04:30:00 Joseph Rivera Buddhist W/AUTO DIFF Ebrahim MAGNESIUM LEVEL 2020-05-22 04:30:00 Joseph Rivera Meth odist Ebrahim PHOSPHORUS LEVEL 2020-05-22 04:30:00 Joseph Rivera Met hodist Ebrahim PARTIAL THROMBOPLASTIN 2020-05-22 04:30:00 Rosaev Joseph Noel on Buddhist TIME (PTT) Ebrahim ESTIMATED GFR 2020-05-22 04:30:00 Joseph Rivera Meth odist Ebrahim HEMODIALYSIS 2020-05-21 10:54:17 JuliaRashaun pate Meth odist Bharatkumar HC COMPLETE BLD COUNT 2020-05-21 04:00:00 DoronbassamNoris ruedamarline barahona Buddhist W/AUTO DIFF Ebrahim BASIC METABOLIC PANEL 2020-05-21 04:00:00 DoronJoseph cabezas Buddhist Ebrahim MAGNESIUM LEVEL 2020-05-21 04:00:00 Joseph Rivera López Meth odist Ebrahim PHOSPHORUS LEVEL 2020-05-21 04:00:00 Joseph Rivera López Met hodist Ebrahim PARTIAL THROMBOPLASTIN 2020-05-21 04:00:00 DoronJoseph cabezas on Buddhist TIME (PTT) Ebrahim PROTHROMBIN TIME WITH INR 2020-05-21 04:00:00 DoronjocelynnNorisJosephmarline faye Buddhist Ebrahim ESTIMATED GFR 2020-05-21 04:00:00 Joseph Rivera López Meth odist Ebrahim XR CHEST 1 VW PORTABLE 2020-05-21 00:37:10 MlwNaldo on Buddhist XR CHEST 1 VW PORTABLE 2020-05-20 12:10:00 MlwNaldo on Buddhist HC COMPLETE BLD COUNT 2020-05-20 04:00:00 Joseph Rivera Buddhist W/AUTO DIFF Ebrahim BASIC METABOLIC PANEL 2020-05-20 04:00:00 Joseph Rivera Buddhist Ebrahim MAGNESIUM LEVEL 2020-05-20 04:00:00 Joseph Rivera Rene Meth odist Ebrahim PHOSPHORUS LEVEL 2020-05-20 04:00:00 Doronbassamev Joseph Rene Met hodist Ebrahim PROTHROMBIN TIME WITH INR 2020-05-20 04:00:00 Joseph Rivera Buddhist Ebrahim PARTIAL THROMBOPLASTIN 2020-05-20 04:00:00 Joseph Rivera on Buddhist TIME (PTT) Ebrahim ESTIMATED GFR 2020-05-20 04:00:00 DoronbassamNoris ruedasuf Rene Meth odist Ebrahim XR CHEST 1 VW PORTABLE 2020-05-19 09:23:20 BiowNaldo on Buddhist HEMODIALYSIS 2020-05-19 06:44:34 Rashaun Amezcua Meth odist Bharatkumar PARTIAL THROMBOPLASTIN 2020-05-19 05:25:00 Joseph Rivera on Buddhist TIME (PTT) Ebrahim HC COMPLETE BLD COUNT 2020-05-19 05:25:00 Joseph Rivera Buddhist W/AUTO DIFF Ebrahim BASIC METABOLIC PANEL 2020-05-19 05:25:00 Joseph Rivera Buddhist Ebrahim MAGNESIUM LEVEL 2020-05-19 05:25:00 DoronbassamNoris ruedamarline López Meth odist Ebrahim PHOSPHORUS LEVEL 2020-05-19 05:25:00 Doronjocelynn Joseph López Met hodist Ebrahim ESTIMATED GFR 2020-05-19 05:25:00 DoronbassamNoris ruedasuf Rene Meth odist Ebrahim XR CHEST 1 VW PORTABLE 2020-05-18 16:09:55 BiowNaldo on Buddhist XR CHEST 1 VW PORTABLE 2020-05-18 11:45:21 BiowNaldo on Buddhist PARTIAL THROMBOPLASTIN 2020-05-18 04:45:00 Joseph Rivera on Buddhist TIME (PTT) Ebrahim PARTIAL THROMBOPLASTIN 2020-05-17 10:30:00 Joseph Rivera on Buddhist TIME (PTT) Ebrahim XR CHEST 1 VW PORTABLE 2020-05-17 08:30:00 BiowNaldo on Buddhist VANCOMYCIN LEVEL, RANDOM 2020-05-17 04:00:00 Joseph Rivera Buddhist Ebrahim PARTIAL THROMBOPLASTIN 2020-05-17 03:50:00 Joseph Rivera on Buddhist TIME (PTT) Ebrahim PARTIAL THROMBOPLASTIN 2020-05-16 19:46:00 Joseph Rivera on Buddhist TIME (PTT) Ebrahim XR CHEST 1 VW PORTABLE 2020-05-16 16:58:40 Julieta Brock on Buddhist HEMODIALYSIS 2020-05-16 16:11:15 Rashaun Amezcua Meth odist Bharatkumar GENERAL 2020-05-16 12:19:05 Julieta Brock Meth odist CT CHEST WO CONTRAST 2020-05-16 09:09:28 Luz Marina Moreno on Buddhist Master BASIC METABOLIC PANEL 2020-05-16 05:30:00 Juju Boland Buddhist PARTIAL THROMBOPLASTIN 2020-05-16 05:30:00 Joseph Rivera on Buddhist TIME (PTT) Ebrahim ESTIMATED GFR 2020-05-16 05:30:00 Joseph Rievra Meth odist Ebrahim XR CHEST 1 PORTABLE 2020-05-15 13:20:47 Matt Layton Buddhist BASIC METABOLIC PANEL 2020-05-15 03:15:00 Juju Boland Buddhist PARTIAL THROMBOPLASTIN 2020-05-15 03:15:00 Joseph Rivera on Buddhist TIME (PTT) Ebrahim ESTIMATED GFR 2020-05-15 03:15:00 Joseph Rivera Meth odist Ebrahim CBC HEMOGRAM 2020-05-15 03:15:00 Juju Boland odist HEMODIALYSIS 2020-05-14 09:26:06 Rashaun Amezcua Meth odist Bharatkumar XR CHEST 1 VW PORTABLE 2020-05-14 08:24:10 Matt Layton CBC HEMOGRAM 2020-05-14 07:30:00 Joseph Rivera Meth odist Ebrahim PROTHROMBIN TIME WITH INR 2020-05-14 06:05:00 Joseph Rivera Buddhist Ebrahim PARTIAL THROMBOPLASTIN 2020-05-14 06:05:00 Joseph Rivera on Buddhist TIME (PTT) Ebrahim BASIC METABOLIC PANEL 2020-05-14 04:00:00 Vo, Juju barahona Buddhist ESTIMATED GFR 2020-05-14 04:00:00 Joseph Rivera Meth odist Ebrahim PARTIAL THROMBOPLASTIN 2020-05-13 23:20:00 Joseph Rivera Bert on Buddhist TIME (PTT) Ebrahim POC GLUCOSE 2020-05-13 21:03:00 Vo, Juju López Meth odist PARTIAL THROMBOPLASTIN 2020-05-13 17:00:00 Joseph Rivera Bert on Buddhist TIME (PTT) Ebrahim XR CHEST 1 VW PORTABLE 2020-05-13 13:21:57 DonteJavier on Buddhist PROTHROMBIN TIME WITH INR 2020-05-13 05:42:00 DoronbassamNoris ruedasuf Kayden faye Buddhist Ebrahim VANCOMYCIN LEVEL, RANDOM 2020-05-13 05:42:00 Vo, Juju mortensen Buddhist BASIC METABOLIC PANEL 2020-05-13 05:42:00 Vo, Juju barahona Buddhist PARTIAL THROMBOPLASTIN 2020-05-13 05:42:00 Vo, Juju Noel on Buddhist TIME (PTT) ESTIMATED GFR 2020-05-13 05:42:00 Vo, Juju López Meth odist CBC HEMOGRAM 2020-05-13 05:42:00 Joseph Rivera Rene Meth odist Ebrahim XR CHEST 1 VW PORTABLE 2020-05-12 21:28:00 DonteJavier on Buddhist POC GLUCOSE 2020-05-12 19:46:00 Vo, Juju López Meth odist POC GLUCOSE 2020-05-12 17:56:00 VoJuju Meth odist XR CHEST 1 VW 2020-05-12 17:08:37 Abe Osei Meth odist Nigel US INSERT PLEURA CATHETER 2020-05-12 16:45:00 Matt Layton Buddhist AEROBIC CULTURE 2020-05-12 16:30:00 Julieta Brock odist ANAEROBIC CULTURE 2020-05-12 16:30:00 Julieta Brock Me thodist FUNGUS CULTURE 2020-05-12 16:30:00 Julieta Brock odist FUNGUS SMEAR 2020-05-12 16:30:00 Julieta Brock odist AMYLASE LEVEL, MISC FLUID 2020-05-12 16:30:00 Julieta Brock GLUCOSE LEVEL, MISC FLUID 2020-05-12 16:30:00 Julieta Brock LDH, MISC FLUID 2020-05-12 16:30:00 Julieta Brock odnatalie CELL COUNT AND 2020-05-12 16:30:00 Julieta Brock DIFFERENTIAL, BODY FLUID ALBUMIN, MISC FLUID 2020-05-12 16:30:00 Julieta Brock PROTEIN, MISC FLUID 2020-05-12 16:30:00 Julieta Brock TRIGLYCERIDES, MISC FLUID 2020-05-12 16:30:00 Julieta Brock PH, MISC FLUID 2020-05-12 16:30:00 Julieta Brock odist POC GLUCOSE 2020-05-12 12:45:00 Vo, Juju Martins odist HEMODIALYSIS 2020-05-12 06:11:59 Rashaun Amezcua odist Bharatkumar HC COMPLETE BLD COUNT 2020-05-12 04:48:00 Joseph Rivera Buddhist W/AUTO DIFF Ebrahim BASIC METABOLIC PANEL 2020-05-12 04:48:00 Joseph Rivera n Buddhist Ebrahim MAGNESIUM LEVEL 2020-05-12 04:48:00 Joseph Rivera Meth odist Ebrahim PHOSPHORUS LEVEL 2020-05-12 04:48:00 Joseph Rivera Met hodist Ebrahim PROTHROMBIN TIME WITH INR 2020-05-12 04:48:00 Joseph Rivera [place] Buddhist Ebrahim ESTIMATED GFR 2020-05-12 04:48:00 Joseph Rivera Meth odist Ebrahim POC GLUCOSE 2020-05-11 20:32:00 Vo, Juju López Meth odist POC GLUCOSE 2020-05-11 17:17:00 Vo, Juju López Meth odist POC GLUCOSE 2020-05-11 12:08:00 Vo, Juju López Meth odist HEMODIALYSIS 2020-05-11 11:50:37 Rashaun Amezcua Meth odist Bharatkumar POC GLUCOSE 2020-05-11 07:49:00 Juju Boland Meth odist HC COMPLETE BLD COUNT 2020-05-11 04:00:00 Joseph Rivera n Buddhist W/AUTO DIFF Ebrahim BASIC METABOLIC PANEL 2020-05-11 04:00:00 Joseph Rivera n Buddhist Ebrahim MAGNESIUM LEVEL 2020-05-11 04:00:00 DoronbassamJoseph rueda Meth odist Ebrahim PHOSPHORUS LEVEL 2020-05-11 04:00:00 Joseph Rivera Met hodist Ebrahim PROTHROMBIN TIME WITH INR 2020-05-11 04:00:00 DoronbassamNoris ruedasuf Kayden [place] Buddhist Ebrahim ESTIMATED GFR 2020-05-11 04:00:00 Joseph Rivera Meth odist Ebrahim PROTHROMBIN TIME WITH INR 2020-05-10 21:10:00 DoronbassamNoris ruedamarline Monique [place] Buddhist Ebrahim PARTIAL THROMBOPLASTIN 2020-05-10 21:10:00 DoronbassamNoris ruedamarline Noel on Buddhist TIME (PTT) Ebrahim POC GLUCOSE 2020-05-10 20:43:00 Joseph Rivera Meth odist Ebrahim POC GLUCOSE 2020-05-10 16:44:00 Joseph Rivera Meth odist Ebrahim HEPATITIS B SURFACE 2020-05-10 12:15:00 Rashaun Amezcua Buddhist ANTIGEN Bharatkumar POC GLUCOSE 2020-05-10 11:29:00 Joseph Rivera Meth odist Ebrahim ECG 12-LEAD 2020-05-10 08:23:12 Joseph Rivera Meth odist Ebrahim POC GLUCOSE 2020-05-10 08:01:00 Joseph Rivera Meth odist Ebrahim TROPONIN 2020-05-10 03:25:00 Joseph Rivera Meth odist Ebrahim BASIC METABOLIC PANEL 2020-05-10 03:25:00 Joseph Rivera n Buddhist Ebrahim MAGNESIUM LEVEL 2020-05-10 03:25:00 Joseph Rivera Meth odist Ebrahim PHOSPHORUS LEVEL 2020-05-10 03:25:00 Joseph Rivera Met hodist Ebrahim CD 4/8 SUBSET 2020-05-10 03:25:00 Joseph Rivera Meth odist Ebrahim VANCOMYCIN LEVEL, RANDOM 2020-05-10 03:25:00 Joseph Rivera Trip stojun Buddhist Ebrahim ESTIMATED GFR 2020-05-10 03:25:00 Joseph Rivera Meth odist Ebrahim HC COMPLETE BLD COUNT 2020-05-10 03:15:00 Joseph Rivera Damaris Wilson W/AUTO DIFF Ebrahim HI CRITICAL CARE, E/M 2020-05-10 01:13:17 Leora Calloway 30-74 MINUTES Kae SPUTUM CULTURE 2020-05-09 23:57:00 Joseph Rivera Meth odist Ebrahim GRAM STAIN 2020-05-09 23:57:00 Joseph Rivera Meth odist Ebrahim HEMODIALYSIS 2020-05-09 21:10:43 SutRashaun pate Meth odist Bharatkumar ECG 12-LEAD 2020-05-09 20:22:31 Joseph Rivera Meth odist Ebrahim CT CHEST WO CONTRAST 2020-05-09 19:36:36 Leora Calloway BLOOD CULTURE, AEROBIC & 2020-05-09 18:00:00 Leora Calloway ANAEROBIC Kae INFLUENZA ANTIGEN TEST, 2020-05-09 18:00:00 Leora Calloway REFLEX NEGATIVE TO RPP Kae COVID-19 QUALITATIVE PCR 2020-05-09 18:00:00 Leora Calloway RESPIRATORY PATHOGEN PANEL 2020-05-09 18:00:00 Leora Calloway Kae HC COMPLETE BLD COUNT 2020-05-09 18:00:00 Leora Calloway W/AUTO DIFF Kae PROTHROMBIN TIME WITH INR 2020-05-09 18:00:00 Leora Calloway Buddhist Kae PARTIAL THROMBOPLASTIN 2020-05-09 18:00:00 Leora Calloway on Buddhist TIME (PTT) Kae COMPREHENSIVE METABOLIC 2020-05-09 18:00:00 Leora Calloway Buddhist PANEL Kae TROPONIN 2020-05-09 18:00:00 Joseph Rivera Meth odist Ebrahim B NATRIURETIC PEPTIDE 2020-05-09 18:00:00 Leora Calloway n Buddhist Kae ESTIMATED GFR 2020-05-09 18:00:00 Leora Calloway BLOOD CULTURE, AEROBIC & 2020-05-09 17:45:00 Leora Calloway ANAEROBIC Kae XR CHEST 1 VW PORTABLE 2020-05-09 17:36:03 Leora Calloway on Buddhist Kae REPORT OF PROCEDURE - 2020-04-26 13:01:45 Provider, [facility] ENDOSCOPY SCAN Scanning [facility] ED ECG INTERPRETATION 2020-04-22 00:23:00 Mandy, [facility] BASIC METABOLIC PANEL (7) 2020-04-21 22:30:00 Mandy, [facility] PT/APTT 2020-04-21 22:30:00 Mandy, [facility] B-TYPE NATRIURETIC FACTOR 2020-04-21 22:30:00 Mandy, [facility] (BNP) [facility] TROPONIN I 2020-04-21 22:30:00 Mandy, [facility] CBC W/PLT COUNT & AUTO 2020-04-21 22:30:00 Mandy, [facility] XR CHEST 2 VIEWS 2020-04-21 22:05:00 Mandy, [facility] ECG 12-LEAD 2020-04-21 20:57:00 Unknown, [facility] RHYTHM STRIP - SCAN 2020-03-07 11:30:22 Provider, Default [facility] [id number] 2020-03-05 00:00:00 ENCPL [id number] 2020-03-05 00:00:00 ENCPL 2V6L20D 2020-03-05 00:00:00 ENCPL [id number] 2020-03-05 00:00:00 ENCPL [id number] 2020-03-05 00:00:00 ENCPL 4F9X40C 2020-03-05 00:00:00 ENCPL 9U1V79J 2020-03-05 00:00:00 ENCPL 1X0F79X 2020-03-05 00:00:00 ENCPL 2O5V02Y 2020-03-05 00:00:00 ENCPL 2B5F04M 2020-03-05 00:00:00 ENCPL [id number] 2020-03-05 00:00:00 ENCPL [id number] 2020-03-05 00:00:00 ENCPL 9U4Z95M 2020-03-05 00:00:00 ENCPL 9V8J44L 2020-03-05 00:00:00 ENCPL 8N9P31T 2020-03-05 00:00:00 ENCPL 4V4G46W 2020-03-05 00:00:00 ENCPL 9G1F54L 2020-03-05 00:00:00 ENCPL [id number] 2020-03-05 00:00:00 ENCPL [id number] 2020-03-05 00:00:00 ENCPL 7S4U09Z 2020-03-05 00:00:00 ENCPL [id number] 2020-03-05 00:00:00 ENCPL POCT-GLUCOSE METER 2020-03-03 15:17:00 Florencio Ocampo [facility] POCT-GLUCOSE METER 2020-03-03 12:24:00 Florencio Ocampo [facility] HEMODIALYSIS INPATIENT 2020-03-03 12:23:00 Selena Squires [facility] APTT 2020-03-03 09:05:00 Florencio Ocampo [facility] APTT 2020-03-03 06:33:00 Florencio Ocampo [facility] BASIC METABOLIC PANEL (7) 2020-03-03 04:20:00 Florencio Ocampogabyliz [facility] PROTHROMBIN TIME/INR 2020-03-03 04:20:00 Florencio Ocamporamakrishna [facility] CBC W/PLT COUNT & AUTO 2020-03-03 04:19:00 Florencio Ocampo Joelle I [facility] POCT-GLUCOSE METER 2020-03-02 21:17:00 Lety Ocampojessee Lai [facility] APTT 2020-03-02 20:45:00 Justin Florencio Joelle [facility] APTT 2020-03-02 18:38:00 Lety Ocampojessee Lai [facility] POCT-GLUCOSE METER 2020-03-02 16:57:00 Justin Florencio Jaeramakrishna [facility] POCT-GLUCOSE METER 2020-03-02 11:53:00 Justin Florencio Lai [facility] APTT 2020-03-02 11:29:00 Justin Florencio Ahramakrishna [facility] POCT-GLUCOSE METER 2020-03-02 08:16:00 Justin Florencio Lai [facility] APTT 2020-03-02 05:09:00 Justin Florencio Ahramakrishna [facility] BASIC METABOLIC PANEL (7) 2020-03-02 05:08:00 Justin Florencio Lai [facility] PROTHROMBIN TIME/INR 2020-03-02 05:08:00 Justin Florencio Ahramakrishna [facility] CBC W/PLT COUNT & AUTO 2020-03-02 05:08:00 Lety Ocampojessee Lai I [facility] POCT-GLUCOSE METER 2020-03-01 23:01:00 Justin Florencio Lai [facility] APTT 2020-03-01 22:26:00 Jojose mchuFlorencio [facility] APTT 2020-03-01 15:10:00 Jogina Florencio Lai [facility] PT/APTT 2020-03-01 15:10:00 Mckennajose mchu Florencio Lai [facility] HEMODIALYSIS INPATIENT 2020-03-01 12:40:00 Shaw Selena XavierDafne [facility] BASIC METABOLIC PANEL (7) 2020-03-01 11:33:00 uJstin Florencio Lai [facility] BASIC METABOLIC PANEL (7) 2020-03-01 05:43:00 Justin Florencio Lai [facility] PROTHROMBIN TIME/INR 2020-03-01 05:43:00 Mckennajose mchu Florencio Lai [facility] APTT 2020-03-01 05:43:00 Mckennajose mchu Florencio Lai [facility] CBC W/PLT COUNT & AUTO 2020-03-01 05:43:00 Kinzachu Florencio Lai I [facility] APTT 2020-02-29 22:37:00 Mckennajose mchuFlorencio [facility] POCT-GLUCOSE METER 2020-02-29 22:19:00 Mckennajose mchuFlorencio [facility] POCT-GLUCOSE METER 2020-02-29 15:25:00 Mckennajose mchuFlorencio [facility] APTT 2020-02-29 15:17:00 KinzachuFlorencio [facility] POCT-GLUCOSE METER 2020-02-29 11:38:00 Mckennajose mchuFlorencio [facility] APTT 2020-02-29 09:03:00 KinzachuFlorencio [facility] PROTHROMBIN TIME/INR 2020-02-29 09:03:00 Mihai Estrella [facility] BASIC METABOLIC PANEL (7) 2020-02-29 00:51:00 Florencio Ocampo [facility] APTT 2020-02-29 00:51:00 Florencio Ocampo [facility] CBC W/PLT COUNT & AUTO 2020-02-29 00:51:00 Justin Florencio Lai [facility] POCT-GLUCOSE METER 2020-02-28 23:48:00 Mckennajose mchuFlorencio [facility] APTT 2020-02-28 18:36:00 Mckennajose mchuFlorencio ramakrishna [facility] POCT-GLUCOSE METER 2020-02-28 18:03:00 Mckennajose mchuFlorencio [facility] TRANSFUSION SERVICE REPORT 2020-02-28 18:00:38 Provider, Heriberto [facility] APTT 2020-02-28 17:12:00 Florencio cOampo [facility] POCT-GLUCOSE METER 2020-02-28 12:02:00 Florencio Ocampo [facility] APTT 2020-02-28 10:56:00 Florencio Ocampo [facility] POCT-GLUCOSE METER 2020-02-28 06:38:00 MckennaFlorencio fuentes [facility] BASIC METABOLIC PANEL (7) 2020-02-28 04:31:00 Florencio Ocampo [facility] CBC W/PLT COUNT & AUTO 2020-02-28 04:31:00 Florencio Ocampo [facility] POCT-GLUCOSE METER 2020-02-28 02:14:00 Florencio Ocampo [facility] FL FLUORO NON-SPECIFIC UP 2020-02-28 01:47:00 Stoney Callejas [facility] - [facility] ORIF,FEMUR 2020-02-27 23:58:00 Sukumar Callejas [facility] PROCEDURE W/ C-ARM 2020-02-27 23:58:00 Sukumar Callejas [facility] APTT 2020-02-27 19:46:00 Florencio Ocampo [facility] HEMODIALYSIS INPATIENT 2020-02-27 18:35:06 Selena Squires [facility] POCT-GLUCOSE METER 2020-02-27 17:44:00 Justin Florencio [facility] IRON, TIBC, % SAT. 2020-02-27 15:19:00 Selena Squires [facility] (WITHOUT FERRITIN) [facility] FERR[facility]IN 2020-02-27 15:19:00 Florencio Ocampo [facility] PLATELET COUNT 2020-02-27 12:30:00 Justin Florencio [facility] APTT 2020-02-27 12:30:00 Justin Florencio [facility] POCT-GLUCOSE METER 2020-02-27 12:01:00 Justin Florencio [facility] HEPATITIS B SURFACE 2020-02-27 10:18:00 Selena Squires [facility] ANTIBODY IDENTIFICATION 2020-02-27 08:56:00 Florencio Ocampo ramakrishna [facility] XR WRIST 2 VIEWS LEFT 2020-02-27 08:49:00 Justin Florencio [facility] POTASSIUM 2020-02-27 07:53:00 Justin Florencio [facility] XR HIP 2 VIEWS LEFT 2020-02-27 07:02:00 Kay Peoples [facility] XR PELVIS 1 OR 2 VIEWS 2020-02-27 06:56:00 Kay Peoples [facility] POCT-GLUCOSE METER 2020-02-27 06:15:00 Justin Florencio [facility] SARS-COV2/RT-PCR ([facility] & 2020-02-27 01:52:[address] [facility] - REF LABS) [facility] [place] COMPREHENSIVE METABOLIC 2020-02-27 01:23:00 Caleb Martinez [facility] PROTHROMBIN TIME/INR 2020-02-27 01:23:00 Caleb Martinez [facility] MAGNESIUM 2020-02-27 01:23:00 MichelleCaleb Carine ZAFAR [facility] PHOSPHORUS 2020-02-27 01:23:00 Caleb Martinez [facility] TYPE AND SCREEN, AUTOMATED 2020-02-27 01:23:00 MayajesseeCaleb Carine [facility] CBC W/PLT COUNT & AUTO 2020-02-27 01:23:00 Michelle Caleb Carine ZAFAR S t [facility] CT ABDOMEN PELVIS WO 2019-09-12 20:46:00 Ty Nieves [facility] CONTRAST XR CHEST 2 VW 2019-09-12 20:44:31 Ty Nieves BLOOD CULTURE, AEROBIC & 2019-09-12 20:01:00 Ty Nieves ANAEROBIC INFLUENZA ANTIGEN 2019-09-12 19:43:00 Ty Nieves on [facility] BLOOD CULTURE, AEROBIC & 2019-09-12 19:43:00 Ty Nieves ANAEROBIC CBC WITH PLATELET AND 2019-09-12 19:43:00 Ty Nieves oufestus [facility] DIFFERENTIAL LACTIC ACID, I-STAT 2019-09-12 19:43:00 Ty Nieves [facility] TROPONIN, I-STAT 2019-09-12 19:43:00 Ty Nieves [facility] VENOUS BLOOD GAS 2019-09-12 19:43:00 Ty Nieves [facility] ESTIMATED GFR 2019-09-12 19:43:00 Ty Nieves COMPREHENSIVE METABOLIC 2019-09-12 19:43:00 Ty Nieves PANEL BILIRUBIN DIRECT 2019-09-12 19:43:00 Ty Nieves [facility] MANUAL DIFFERENTIAL 2019-09-12 19:43:00 Ty Nieves [facility] ECG ED PRELIMINARY 2019-09-12 19:29:23 Ty Nieves [facility] INTERPRETATION ECG 12-LEAD 2019-09-12 19:25:17 EzequielAbdoulayeArsenio Rene [facility] [id number] 2019-01-08 00:00:00 ENCPL [id number] 2019-01-08 00:00:00 ENCPL [id number] 2019-01-08 00:00:00 ENCPL [id number] 2019-01-08 00:00:00 ENCPL Plan of Care Planned Activity Planned Date Details Comments Source Future Scheduled 2023-03-[address] [facility] Test 00:00:00 (procedure) [code = Medical Center [id number]] Future Scheduled 2020-05-03 INFLUENZA VACCINE (#1) [facility] - Test 00:00:00 [code = INFLUENZA Medical Ce nter VACCINE (#1)] Future Scheduled 2020-01-[address] [facility] - Test 00:00:00 malignant neoplasm of [facility] colon (procedure) [code = 942040173] Future Scheduled 2019-06-[address] [facility] - Test 00:00:00 [facility] (procedure) [code = 54316343] Future Scheduled 2018-12-02 DIABETES: RETINAL EYE [facility] [place] [facility] Test 00:00:00 EXAM [code = DIABETES: RETINAL EYE EXAM] Future Scheduled 2018-08-[address] [facility] - Test 00:00:00 0-64 YRS (2 of 3 - Medical C enter PCV13) [code = PNEUMOCOCCAL VACCINE 0-64 YRS (2 of 3 - PCV13)] Future Scheduled 2011-05-[address] [facility] - Test 00:00:00 WELLNESS (YEAR 2 or Medical Center FIRST YEAR if no IPPE) [code = MEDICARE ANNUAL WELLNESS (YEAR 2 or FIRST YEAR if no IPPE)] Future Scheduled 2007-04-24 COLONOSCOPY SCREENING [place] [facility] Test 00:00:00 [code = COLONOSCOPY SCREENING] Future Scheduled 2007-04-24 SHINGLES VACCINES (#1) [place] [facility] Test 00:00:00 [code = SHINGLES VACCINES (#1)] Future Scheduled 1967-04-24 DIABETIC FOOT EXAM [place] [facility] Test 00:00:00 [code = DIABETIC FOOT EXAM] Future Scheduled 1967 DIABETIC EYE EXAM [facility] - Test 00:00:00 [code = DIABETIC EYE [facility] EXAM] Future Scheduled [address] [facility] - Test 00:[facility] examination [facility] (regime/therapy) [code = 427237029] Future Scheduled 1967 Urine screening for [facility] - Test 00:00:00 protein (procedure) [facility] [code = 035832442] Encounters Start End Encounter Admission Attending Care Care Encounter Source Date/Time Date/Time Type Type Clinicians Facility Department ID 2020-07-06 Outpatient MELONIE SHANNON ENCCLR [id number] ENCCLR 21:26:21 N MELVIN 2020-05-09 2020-06-28 Inpatient VO, [facility] [id number] [place] 00:00:00 00:00:[address] 2019-11-09 2019-11-09 Outpatient [facility] MED [id number] [facility] 08:51:00 08:51:00 2019-09-12 2019-09-12 Emergency NIEVES, [facility] [id number] [place] 00:00:00 00:00:00 TY [address] 2017-11-18 2017-11-20 Inpatient C NANGIA, [facility] MED [id number] 13:43:00 13:54:00 [facility] 2017-11-07 2017-11-07 Emergency E [facility] MED [id number] 20:22:00 20:22:00 [facility] 2017-10-06 2017-10-06 [facility] [id number] 14:25:00 14:25:00 [facility] Results Test Description Test Time Test Comments Results Result Comments Source Fungus culture 2020-07-05 00:15:24 Test Item Value Reference Range Interpretation Comme nts Fungus culture isolate No growth after 4 weeks of Specimen InformationSpecimen (test code = 1441) incubation. 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 Interpretation Abnormal (test code = 43309-9) [place] MethodistBasic metabolic cyiys4430-36-94 03:43:32 Test Item Value Reference Range Interpretation Comments Sodium (test code = 2951-2) 130 135- 148 mEq/L L Potassium (test code = 2823-3) 4.1 3.5- 5.0 mEq/L Chloride (test code = 2075-0) 93 98- 112 mEq/L L CO2 (test code = 8-9) 27 24- 31 mEq/L Anion gap (test code = 86226-9) 10@ANIO 7- 15 mEq/L BUN (test code = 3094-0) 28 mg/dL 8-23 H Creatinine (test code = 2160-0) 3.34 mg/dL 0.7-1.2 H Glucose (test code = 2345-7) 104 mg/dL 65-99 H Calcium (test code = 95142-7) 9.8 mg/dL 8.8-10.2 Lab Interpretation (test code = Abnormal 12367-2) [place] MethodistEstimated [id number] 03:43:31 Test Item Value Reference Range Interpretation Comments Estimated GFR (test 21 mL/min/1.73 m2 Ev angelo Units code = 5488) InterpretationG 1 >=90 Jazmine l or highG2 60-89 Mildly decrease dG3a 45-59 Mil dly to moderately decr btnmuW2j 30-44 Moderately to s everely decreasedG4 15-29 Severe ly decreasedG5 <15 Kidney blanco lureThe eGFR was calcul ated using the Chron ic Kidney Disease Epidemiology Collaboration ( CKD-EPI) equation. Interpretation is based on recommendati ons of the National Ki dney Foundation-Kidn ey Disease Outcome s Quality Initiat samreen (NKF-KDOQI) pub lished in 2013. Lab Interpretation Abnormal (test code = 78807-4) [place] MethodistProthrombin time with [id number] 03:30:25 Test Item Value Reference Range Interpretation Comments Prothrombin time (test 27.5 11.5- 14.5 sec H code = 5902-2) INR (test code = 2.5 The Interna tional 17444-8) Normalized Rati o (INR) is a therapeuti c monitoring tool for patients who ar e stable on oral anticoagulant t herapy. An INR of 2.0-3 .0 is suggested for d eep vein thrombosis/pulm onary embolism. Lab Interpretation Abnormal (test code = 88007-4) [facility] MethodistCBC with platelet and znctuazgdrpn9877-13-19 03:21:59 Test Item Value Reference Range Interpretation Comments WBC (test code = 14396-9) 7.14 4.50- 11.00 k/uL RBC (test code = 35875-6) 2.52 m/uL 4.4-6 L HGB (test code = 718-7) 8.2 g/dL 14-18 L HCT (test code = 4544-3) 26.4 % 41-51 L MCV (test code = 787-2) 104.8 fL 82-100 H MCH (test code = 785-6) 32.5 pg 27-34 MCHC (test code = 786-4) 31.1 g/dL 31-37 RDW - SD (test code = 68.6 fL 37-55 H 58079-9) MPV (test code = 47159-1) 8.4 fL 8.8-13.2 L Platelet count (test code 192 150- 400 k/uL = 39517-1) Nucleated RBC (test code 0.00 /100 WBC = 98111-8) Neutrophils (test code = 66.7 % 39-69 46319-0) Lymphocytes (test code = 17.1 % 25-45 L 79050-4) Monocytes (test code = 12.7 % 0-10 H 85505-7) Eosinophils (test code = 2.1 % 0-5 08726-4) Basophils (test code = 0.7 % 0-1 98473-1) Immature granulocytes 0.7 % 0-1 "Immat ure (test code = 16342-8) granul ocytes" (promyelocytes, myelocytes, metamyelocytes) Lab Interpretation (test Abnormal code = 77770-9) [facility] MethodistPotassium cijiz5878-49-08 17:36:39 Test Item Value Reference Range Interpretation Comments Potassium (test code = 2823-3) 4.3 3.5- 5.0 mEq/L Rene MethodistCT Chest Wo Hpbcwwsa5169-18-22 13:38:48Hm Interface, Radiology Results 06/27/2020 1:42 PM CDTEXAMINATION:CT CHEST WO CONTRASTCLI NICAL HISTORY:feverTECHNIQUE:Multiple axial images of the chest were obtained without intravenous contrast. The lack of intravenous contrast reduces the sensitivity of detecting solid organ disease andevaluating vasculature. Sagittal and coronal computerized reformatted images were also obtained.Automatic exposure control or iterative reconstruction techniques used to reduce dose.COMPARISON:06/15/2020Impression:1.Stable mild to moderately enlarged mediastinal nodes are again noted, measuring up to 1.4 cm in short axis in the right paratracheal chain. There are also bilateral axillary prominent nodes again seen. Extensive postoperative changes with median sternotomy, left atrial clip and mitral valve replacement again seen. Bilateral complex pleural effusions containing heterogeneous high densitymaterial consistent with subacute hemothorax, left small to moderate and right small in size.2.Bilateral lung basilar dependent airspace disease appear mildly increased with more consolidative features. Superimposed pneumonia cannot be excluded. Central airways are patent. Left-sided eighth posterior rib fracture again noted.Summary:1.Persistent pleural abnormalities including left-sided small to moderate hemothorax similar to prior study. Degree of dependent airspace disease has increased and may be due to worsening atelectasis, although superimposed pneumonia cannot be excluded.. [facility]-[id number] MethodistCOVID-19 qualitative [id number] 10:30:49 Test Item Value Reference Range Interpretation Comments Interpretation (test Negative results do code = 5269079) not preclude 2019-nCoV infection and should not be used as the sole basis for treatment or other patient management decisions. Negative results must be combined with clinical observations, patient history, and epidemiological information. COVID-19 qualitative Not-Detected Not-Detected PCR result (test code = 01973-2) COVID-19 qualitative See link below for C ase Number: PCR (test code = PDF Lab Report [id number]) Rene MethodistSmear yarmod8838-18-34 08:16:12 Test Item Value Reference Range Interpretation Comments Platelet slide review Cayla adequate (test code = 14746-7) Anisocytosis (test code = Moderate 702-1) Polychromasia (test code Moderate = 41041-4) Ovalocytes (test code = Moderate 774-0) ALVIN (test code = ALVIN) K results called to and read back by MILTON MILLER/JARET(name/loc ation)at 06/27/2020 07:42 (date/time) by PR1. Rene MethodistXR Chest 1 Vw Pdadzrig7680-51-58 01:23:35Hm Interface, Radiology Results Incoming - 06/27/2020 1:26 AM CDTExamination: XR CHEST 1 VW PORTABLEClinical history: "fever" Comparison: 06/23/2020 IMPRESSION: Indwelling support lines/tubes appear g enerally stable in position.Pulmonary venous congestion and bilateral perihilar and lower lung pulmonary infiltrates are seen which have worsened from the previous study. Blunting of the costophrenic angles is compatible with minimal pleural fluid or scarring. No pneumothoraces are identified.The cardi omediastinal silhouette is unchanged. The bones of the chest are unchanged. HMRM-Jenny MethodistPartial thromboplastin time, sjozheihr4257-40-74 07:18:58 Test Item Value Reference Range Interpretation Comments PTT (test code = 132.2 23.0- 36.0 sec HH PTT thera peutic range 85535-0) for unfractiona jayla heparin is61.0- 112.0 seconds which corresponds to Anti-Xa0.3-0.7 U/ml.PTT_result s called to and r ead back by GILMAR LORENZO/WT19 (name/location) at 06/26/2020 07: 18 ___(date/time) by FREDY_. Lab Interpretation Abnormal (test code = 16797-4) Rene HopeistMagnesium bmalb0521-55-30 07:07:44 Test Item Value Reference Range Interpretation Comments Magnesium (test code = 40401-1) 2.0 mg/dL 1.6-2.4 [facility] MethodistPhosphorus razkv2787-53-48 07:07:43 Test Item Value Reference Range Interpretation Comments Phosphorus (test code = 2777-1) 2.6 mg/dL 2.4-4.5 Rene HopeistPrepare RBC, 1 Juahv1045-46-53 14:54:00 Test Item Value Reference Range Interpretation Comments Product name (test code Red Blood Cells -1, = 25) Leukored Unit number (test code [id number] = [id number]) Product code (test code D3335O82 = 3092) Dispense status (test Transfused code = 24) Blood expiration date (test code = 302) Blood type code (test 8400 code = 308) Blood type (test code = AB POSITIVE 1314) Compatibility (test Compatible code = 6400) [facility] MethodistType and fpfsom1185-49-13 11:23:00 Test Item Value Reference Range Interpretation Comments ABO grouping (test code = 883-9) AB Rh type (test code = 19272-1) POS Antibody screen (gel) (test code = NEG 890-4) [facility] MethodistParathyroid cbkmmvq2117-69-48 03:23:40 Test Item Value Reference Range Interpretation Comments PTH (test code = 2731-8) 53 pg/mL 15-65 [facility] MethodistCBC vbndnvmz2832-16-85 03:07:56 Test Item Value Reference Range Interpretation Comments WBC (test code = 42469-0) 5.81 4.50- 11.00 k/uL RBC (test code = 94903-1) 2.19 m/uL 4.4-6 L HGB (test code = 718-7) 7.1 g/dL 14-18 L HCT (test code = 4544-3) 23.4 % 41-51 L MCV (test code = 787-2) 106.8 fL 82-100 H MCH (test code = 785-6) 32.4 pg 27-34 MCHC (test code = 786-4) 30.3 g/dL 31-37 L RDW - SD (test code = 80884-6) 72.3 fL 37-55 H MPV (test code = 05357-5) 8.4 fL 8.8-13.2 L Platelet count (test code = 145 150- 400 k/uL L 10196-3) Nucleated RBC (test code = 0.00 /100 WBC 28778-4) Lab Interpretation (test code = Abnormal 07399-7) [place] MethodistSpirometry, fdsrzaraj9844-82-32 15:26:26 Test Item Value Reference Range Interpretation Comments FEV1 Pre (test code = 5348) 1.29 L 1.95-3.47 FEV1/FVC % Pre (test code = 5361) 99.91 % 67.31-88.14 FVC Pre (test code = 5354) 1.29 L 2.66-4.38 PEF Pre (test code = 5367) 4.85 L/s 5.14-10 FEF 25-75% Pre (test code = 5547) 2.98 L/s 0.87-4.14 FEV1 Predicted (test code = 5302) 2.71 FEV1 LLN (test code = 5347) 1.95 FEV1 % Pre of Predicted (test code = 47.5 % 5308) FVC Predicted (test code = 5307) 3.52 FVC LLN (test code = 5353) 2.66 FVC % Pre of Predicted (test code = 36.6 % 5355) FEV1/FVC % Predicted (test code = 78 5359) FEV1/FVC % LLN (test code = 5360) 67 FEV1/FVC % Pre of Predicted (test 128.6 % code = 5362) FEF 25-75% Predicted (test code = 2.51 5546) FEF 25-75% LLN (test code = 5545) 0.87 FEF 25-75% % Pre of Predicted (test 118.9 % code = 5548) PEF Predicted (test code = 5310) 7.57 PEF LLN (test code = 5366) 5.14 PEF % Pre of Predicted (test code = 64.1 % 5368) [facility] MethodistManual ycpgxskenvlp9745-18-51 08:39:52 Test Item Value Reference Range Interpretation Comments Manual differential (test code = PERFORMED 50702-3) Neutrophils (test code = 71.0 % 39-69 H 93111-3) Lymphocytes (test code = 9.0 % 25-45 L 08939-0) Monocytes (test code = 83821-3) 13.0 % 0-10 H Eosinophils (test code = 4.0 % 0-5 82527-5) Basophils (test code = 08674-5) 0.0 % 0-1 Metamyelocytes (test code = 0 % 740-1) Myelocytes (test code = 749-2) 3 % Promyelocytes (test code = 0 % 783-1) Platelet slide review (test code Cayla adequate = 68814-1) Anisocytosis (test code = 702-1) Moderate Polychromasia (test code = Moderate 69480-3) Lab Interpretation (test code = Abnormal 04647-8) [place] MethodistPeripheral Fnoen1261-59-31 10:15:57Julieta Sevilla MD 06/17/2020 10:35 AMPeripheral Block Date/Time: 06/17/2020 10:04 AMPerformed by: Joseph Rivera MDAuthorized by: Joseph Rivera MD Patient Location: Pre-opStart Time: 06/17/2020 9:54 AMEnd Time: 06/05/2020 10:04 AMReason for Block: primary anesthetic Staff: Anesthesiologist: Julieta Sevilla MD Performed by: AnesthesiologistPreprocedure: patient identified, IV checked, site and side verified, risks and benefits discussed, procedure verified, surgical consent complete, patient position confirmed, monitors and equipment checked, pre-opevaluation complete, site marked, timeout performed prior to procedure and coagulation status reviewed Peripheral Nerve Block: Patient Position: Supine and pertinent anatomy defined Prep: ChloraPrep Monitoring: Blood pressure monitoring, continuous pulse oximetry and heart rateBlock Type: Supraclavicular (and musculocutaneous)Laterality: LeftInjection Technique: Single injectionProcedures: ultrasound guided Local Infiltration (See MAR for details): RopivacaineNeedle: Needle Type: Pajunk Needle Gauge: 22 G Needle Length: 10 cmAssessment: Injection Assessment: Visualized needle/local anesthetic surrounding nerve, visualized pertinent vascular structures and nerves, needle tipvisualized at all times during injection of medication, intermittent aspiration during local anesthetic administration and no symptoms of intraneural/intravenous injection Paresthesia Pain: None Heart Rate Change: No Slow Fractionated Injection: Yes Block outcome: No apparent complications, patient comfortable and patient tolerated procedure wellNotes: 20 cc 0.5% Ropivacaine and 10 cc 2%Lidocaine used for Supraclavicular ndtls93ff 0.5% Ropivacaine used for Musculocutaneous nerve block [place] MethodistXR Abdomen 1 Ha8665-05-25 16:28:25Hm Interface, Radiology Results 06/16/2020 4:31 PM CDTEXAMINATION: XR ABDOMEN 1 VWCLINICAL HISTORY: constipation ileus COMPARISON: 06/13/2020IMPRESSION:1.Bowel gas pattern nonobstructive. Mild retained stool in the colon. The degree of retained stool has slightly increased compared to study of 06/13/2020. No free air.2.Changes at the lung bases as well as osseous structures stable.López MethodistECG 12 aunz6669-70-86 11:46:43 Test Item Value Reference Range Interpretation Comments Ventricular rate (test 103 code = 253) Atrial rate (test code = 103 255) HI interval (test code = 192 266) QRSD interval (test code 78 = 260) QT interval (test code = 346 264) QTC interval (test code = 453 265) P axis 1 (test code = 64 267) QRS axis 1 (test code = -6 268) T wave axis (test code = 81 270) EKG impression (test code Sinus = 273) tachycardia-Nonspeci fic T wave abnormality--Electro nically Signed By Claribel Solorzano ([id number]) on 06/15/2020 11:46:36 AM López PkgdbefmxZzupudzn5734-08-95 19:39:05 Test Item Value Reference Range Interpretation Comments Troponin (test code 0.034 ng/mL 0-0.04 In patie nts suspected = 77666-5) of having a jewel cardial infarction, farrukh tao with all other appro priate clinical measur es and actions includi ng ECG and other diagn ostics as appropriate, measure Ultra TnI at 0 hrs and at 3 hrs.Myocar dial infarction VERY LIKELYThe 0 hr TnI level is > 0.10 ng/mL -------- -------- -------- --------Myocard ial infarction LIKE LYThe 0 hr TnI level is > 0.04 ng/mL and 3 hr level is increased or de creased by at least 0.0 20 ng/mL -------- -------- -------- ---Myocardial infarction VERY UNLIKELYBoth th e 0 hr and 3 hr TnI le vels <= 0.04 ng/mL(with in normal limits) OR 0 hr is > 0.04 ng/mL and 3 hr is increased OR decreased by le ss than 0.020 ng/mL [facility] Renal Stone Lfhlyetc1739-99-96 21:53:19Hm Interface, Radiology Results 06/13/2020 9:56 PM CDTEXAMINATION: CT RENAL STONE PROTOCOLCLINICAL HISTORY: left flank painTECHNIQUE: Multiple axial images of the abdomen and pelvis wereobtained without intravenous administration of iodinated contrast. Sagittal and coronal computerizedreformatted images were also obtained. The lack of intravenous contrast reduces the sensitivity of de tecting solid organ disease.CT imaging was performed with iterative reconstruction techniques and/orautomated exposure control to reduce radiation dose.COMPARISON: None.FINDINGS:Lung bases demonstrate extensive atelectasis with likely interstitial edema. There is diffuse pleural thickening with small complex loculations, larger on the left side with heterogeneous hyperdense material consistent withblood.There is mild anasarca. Asymmetric soft tissue edema is demonstrated laterally in the left abdominal wall and flank region. No discrete fluid collection or soft tissue gas.Kidneys are markedly atrophic. No hydronephrosis.Enlarged liver and distended IVC suggesting chronic congestive hepatopathy.Mildly enlarged spleen.Tiny gallstones. Atrophic pancreas.No evidence of bowel obstruction. No significant free fluid or free air.Diffuse vascular calcifications. Aorta is nondilated.Fixation hardware partly seen in the left femur.Multiple enlarged periportal, gastrohepatic, and retroperitoneal lymph nodes are slightly increased, probably reactive.Stranding overlying the groin regions bilaterally presumably from recent procedure. There is subcutaneous edema partly seen at the dorsum of the penis.Bones are demineralized.IMPRESSION:1.Diffuse soft tissue induration in the left lateral abdominal wall/flank possibly related to cellulitis. No discrete fluid collection.2.Small complex pleural loculationswith component of hemothorax on the left side.3. Slight progression of abdominal lymphadenopathy. Consider follow-up to ensure regression.4.Other chronic findings as noted above.1D2RAD_PS04[facility] MethodistXR Abdomen 1 Vw Tzllqmgm0121-71-60 14:29:07Hm Interface, Radiology Results 06/13/2020 2:32 PM CDTStudy:XR ABDOMEN 1 VW PORTABLEHistory:left flank painCOMPARISON:None.IMPRESSION:3 views of the abdomen. Nonspecific calcific density overlying the left 11th rib measures 7 mm. This could be a renal stone. No calcifications on the right.Contrast seen within the colon. No bowel distention. Air-filled small bowel loops are nondistended in the left lower quadrant. Bones are stable.1D2RAD_PS07[facility] MethodistUs duplex hemodialysis avg avf fdpgjh0399-64-16 19:26:00Interface, Radiology Results In - 06/10/2020 7:27 PM CDT Vascular Ultrasound Laboratory AV Graft - Fistula Report [address] [place] [address] Pat.Name: CALEB LUGO.ID: [id number] .Date: 06/10/2020 Refer.MD: JUJU BOLAND MD Exam Time: 2:34:00 PM Study Type:AV Graft - Fistula Height: 67in Weight: 143lb BSA: 1.75 m2 Age: 804/24/1955,65Y Sex: MALE Sonogrphr: Heriberto Heredia RVT Pat. Stat.:Inpatient Room: [address] Vol: , CPT - 4: 00935 Echo Event ID:[id number] Order ID: [id number] Reason for Study:Patient has bleeding fistula. History of ESRD on HD,hypertension, S/p mitral valve replacement.Procedures: B-flow imaging, Colorflow, Grayscale/2D, Pulsed waveDopplerRace: B SUMMARY: DUPLEX SCAN OBSERVATIONS:LEFT: There is a brachial artery-brachial vein AV loop graft seen atthe proximal forearm. There is hard and calcified material seenthroughout the AV loop graft. Disturbed colorflow and Doppler signalsare seen in the feeding brachial artery, throughout the AVG and intothe draining brachial vein. Increased velocity with disturbedcolorflow and Doppler signals are seen at the venous anastomosis(ratio 8.37). Volume flow of brachial artery is 462 cc/min.DOPPLER FINDINGS: ARTERY LOCATION PSV (cm/sec)LEFT Brachial Proximal-third 153 Mid-third 145 Distal-third 175.7 125.5 Brachial A- Brachial V AV loop graft Arterial Anastomosis 241.3 (ratio 1.9) Arterial s shama 154.9 135.2 Mid graft 99.1 Venous side 93.9 111.6 100.7 Venous Anastomosis 843.4 (ratio 8.37) Brachial vein Antecubital fossa 140.9 UA-Distal 66.0 UA-Mid 72.1 UA-Proximal 28.0 Axillary vein 45.3 Subclavian vein 41.7VOLUME FLOW: Brachial 462 cc/min 449.8 cc/minPRELIMINARY FINDINGS:1. Patent left brachial artery-brachial vein AV loop graft seen at theproximal forearm.2. <50% stenosis of the arterial anastomosis (ratio 1.90).3. >50% stenosis of the venous anastomosis (ratio 8.37).4. Volume flow of left mid brachial artery is 462 cc/min.PHYSICIAN INTERPRETATION:Decreased flow volume Patent left brachial artery-brachial vein AV loop graft seen at theproximal forearm. >50% stenosis of the venous anastomosis (ratio 8.37). <50% stenosis of the arterial anastomosis (ratio 1.90). FINDINGS:--------- Signed 06/10/2020 07:26 Tarsha Blankenship MD, RPVI [place] MethodistFerritin ncjzs5576-56-45 05:00:54 Test Item Value Reference Range Interpretation Comments Ferritin level (test code = 4002 ng/mL 30-400 H 2276-4) Lab Interpretation (test code = Abnormal 62150-2) [place] MethodistTotal iron binding ikujprgg8588-72-69 04:36:28 Test Item Value Reference Range Interpretation Comments Iron level (test code 107 ug/dL 59-158 = 2498-4) Iron binding capacity SEE COMMENT 200-400 Unable to calculate (test code = 2500-7) due to too low analyte concentration. % Saturation (test SEE COMMENT 20-40 Unable to calculate code = 2502-3) due to low an alyte concentration. [place] MethodistHemoglobin & gihhdcadli7700-20-40 15:27:42 Test Item Value Reference Range Interpretation Comments HGB (test code = 718-7) 8.0 g/dL 14-18 L HCT (test code = 4544-3) 25.7 % 41-51 L Lab Interpretation (test code = Abnormal 17945-0) [place] MethodistFL Modified Barium Xjacrae9470-72-08 11:48:09Hm Interface, Radiology Results - 06/09/2020 11:51 AM CDTEXAMINATION: [place] MODIFIED BARIUM SWALLOWCLINICAL HISTORY: Dysphagia unexplainedCOMPARISON: None.Fluoroscopy time: 0.8 minutesFINDINGS: The patient swallowed varying consistencies of barium under direct lateral fluoroscopic evaluation. The study was performed in conjunction with speech pathology.IMPRESSION:Normal study. The patient swallowed each consistency without evidence of laryngeal penetration or aspiration.Please refer to Speech Pathology report for further details.[facility]-[id number] MethodistIonized salisum4257-14-27 03:25:11 Test Item Value Reference Range Interpretation Comments pH (test code = 2753-2) 7.43 Ionized calcium (test code = 1.20 mmol/L 1.11-1.32 ) [place] MethodistHepatitis B surface rfhwbaw3544-46-99 16:18:48 Test Item Value Reference Range Interpretation Comments Hepatitis B surface Ag (test Non-reactive Non-reactive code = 5195-3) [place] MethodistAFB dhwon3369-42-97 16:13:32 Test Item Value Reference Range Interpretation Comments AFB stain No acid fast Specimen (test code = bacilli (AFB) InformationSpe cimen 676-7) seen. Source: Bronchi al alveolar lavageSpecimen Site: RLL (Right Lower Lo be) López MethodistFungus [id number] 16:13:32 Test Item Value Reference Range Interpretation Comments Fungus smear No fungi Specimen (test code = observed. InformationSpec imen Source: 1443) Bronchial alveo lar lavageSpecimen Site: RLL (Right Lower Lo be) [place] MethodistGram [id number] 16:13:32Gram stain isolateModerate WBC'sNo organisms seen Comment: Specimen InformationSpecimen Source: Bronchial alveolar lavageSpecimen Site: RLL (Right Lower Lobe) [facility] MethodistSurgical pathology [id number] 14:49:16 Test Item Value Reference Range Interpretation Comments Case number (test code = [id number]) Surgical pathology See link below for report (test code = PDF Lab Report 5925) Result status (test code This is Final Report = [id number]) for [id number] [place] MethodistAnaerobic [id number] 10:05:23 Test Item Value Reference Range Interpretation Comments Anaerobic No anaerobic Specimen culture isolate organisms InformationS pecimen (test code = isolated. Source: Pleural 552) fluidSpecimen S ite: Lung: LEFT PLEURAL FL UID [place] MethodistArterial blood [id number] 02:00:18 Test Item Value Reference Range Interpretation Comments pH, arterial (test code = 2744-1) 7.49 7.35-7.45 H pCO2, arterial (test code = 39 35- 45 mmHg 2018-8) pO2, arterial (test code = 219 80- 90 mmHg H 2703-7) Bicarbonate, arterial (test code 29.0 mmol/L 21-28 H = 1960-4) Base excess, arterial (test code 6 -2 - 2 mEq-L H = 1925-7) O2 saturation, arterial (test 99 % 95-100 code = 2708-6) Lab Interpretation (test code = Abnormal 64493-9) [facility] StephenvilleKoyrmllypLismngnvomrb7014-99-32 13:42:59Jam Hoskins MD 06/06/2020 1:46 PMBronchoscopy Date/Time: 06/06/2020 1:43 PMPerformed by: Jam Hoskins MDAuthorized by: Juju Boland MD Consent: Consent obtained: Verbal Consent given by: Patient Alternatives discussed: No treatmentUniversal protocol: Procedure explained and questions answered to patient or proxy's satisfaction: yes Relevant documents present and verified: yes Test results available and properly labeled: yes Imaging studies available: yes Required blood products, implants, devices, and special equipment available: yes Site/side marked: yes Immediately prior to procedure, a time out was called: yes Patient identity confirmed: Verbally with patient and arm bandPre-procedure details: Indication: Hypoxemic respiratory failure Scope type: Flexible bronchoscope Airway: Intubated Monitoring devices: Pulse oximetry and NIPBSedation: Sedation Type: Anxiolysis and Narcotic Narcotic(s) used:: DilaudidFindings: Findings: Normal Secretion consistency: Thin Secretion amount: SmallWashings: Washings: Right Sample sent for: Gram stain, viral culture and routine culturePost-procedure details: Patient tolerance of procedure: Patient tolerated the procedure well with no immediate complications Attending physician: Dr. Hernandezments: Scant mucus retrieved for cultures. Airways diffusely erythematousHouston MethodistAerobic qkccsbd7523-66-36 04:33:04 Test Item Value Reference Range Interpretation Comments Aerobic culture No growth Specimen isolate (test after 3 days. InformationSp ecimen code = 498) Source: Pleural fluidSpecimen S ite: Lung: LEFT PLEURAL FL UID [place] MethodistTissue [id number] 04:32:41 Test Item Value Reference Range Interpretation Comments Tissue culture No growth Specimen isolate (test after 3 days. InformationSp ecimen code = 52647-5) Source: Tiss ueSpecimen Site: Lung: LEF T PLEURAL RIND [place] MethodistAnti Xa, izyitkrqgyladn6065-17-38 10:10:05 Test Item Value Reference Range Interpretation Comments Anti Xa, unfractionated 0.43 U/mL 0.3-0.7 Ther apeutic Range: (test code = 3274-8) 0.30 - 0.70 U/mL [place] MethodistLactic acid [id number] 04:00:07 Test Item Value Reference Range Interpretation Comments Lactic acid (test code = 20538-3) 0.8 mmol/L 0.5-2.2 [place] MethodistCytology (non-gynecological) [id number] 16:12:18 Test Item Value Reference Range Interpretation Comments Case number (test code = [id number]) Cytology See link below for (non-gynecological) PDF Lab Report report (test code = 1178) Result status (test code This is Final Report = [id number]) for [id number] [place] MethodistComprehensive metabolic [id number] 03:16:03 Test Item Value Reference Range Interpretation Comments Sodium (test code = 141 135- 148 mEq/L 2951-2) Potassium (test code = 4.7 3.5- 5.0 mEq/L 2823-3) Chloride (test code = 102 98- 112 mEq/L 2075-0) CO2 (test code = 2027-9) 25 24- 31 mEq/L Anion gap (test code = 14@ANIO 7- 15 mEq/L 69437-2) BUN (test code = 3094-0) 14 mg/dL 8-23 Creatinine (test code = 3.38 mg/dL 0.7-1.2 H 2160-0) Glucose (test code = 129 mg/dL 65-99 H 2345-7) Calcium (test code = 9.5 mg/dL 8.8-10.2 16727-7) Protein (test code = 7.6 g/dL 6.3-8.3 -[place] n 2885-2) 4.6-7.0 g/dL1 week 4.4-7 .6 g/dL7 months-1y ear 5.1-7 .3 g/dL1-2 years 5.6-7 .5 g/dL>3 years 6.0-8 .0 g/eS94-323 6.3-8 .3 g/dL Albumin (test code = 2.9 g/dL 3.5-5 L 1751-7) A/G ratio (test code = 0.6 0.7-3.8 L 1759-0) Alkaline phosphatase 50 U/L 40-129 (test code = 6768-6) AST (test code = 1920-8) 33 U/L 10-50 ALT (test code = 1742-6) 8 U/L 5-50 Total bilirubin (test 1.0 mg/dL 0-1.2 code = 1974-2) Lab Interpretation (test Abnormal code = 46584-0) Rene MethodistBilirubin gaaxha6686-03-88 03:16:03 Test Item Value Reference Range Interpretation Comments Bilirubin direct (test code = 0.7 mg/dL 0-0.3 H 1967-7) Lab Interpretation (test code = Abnormal 38157-0) Rene MethodistCentral Line [id number] 22:36:38Tasneem Rainey ACNP 06/02/2020 10:37 PMCentral Line InsertionPerformed by: Tasneem Rainey ACNPAu thorized by: Tasneem Rainey ACNP Consent: Consent obtained: Emergent situationUniversal protocol: Patient identity confirmed: Provided demographic data and hospital-assigned identification numberPre-procedure details: Hand hygiene: Hand hygiene performed prior to insertion Sterile barriertechnique: All elements of maximal sterile technique followed Skin preparation: 2% chlorhexidine Skin preparation agent: Skin preparation agent completely dried prior to procedure Sedation: Sedation Type: Systemic Systemic used:: PropofolAnesthesia (see MAR for exact dosages): Anesthesia method: Local infiltration Local anesthetic: Lidocaine 1% w/o epiProcedure details: Catheter type: Double lumen Catheter size: 7 Fr Catheter site: internal jugular vein Catheter Site Laterality: Right Patient position: Flat Ultrasound guidance: yes Ultrasound guidance: images not saved electronically Sterile ultrasound techniques: Sterile gel and sterile probe covers were used Number of attempts: 1 Successful placement: yes Post-procedure details: Post-procedure: Dressing applied and line sutured Assessment: Blood return through all ports and free fluid flow Patienttolerance of procedure: Tolerated well, no immediate complicationsL[place]asant PfovjroihJicajfnvxm5254-91-48 22:03:04 Test Item Value Reference Range Interpretation Comments Fibrinogen (test code = 60633-9) 669 mg/dL 200-450 H Lab Interpretation (test code = Abnormal 79554-5) [place] MethodistIonized calcium, gomxjdym7574-90-25 21:45:08 Test Item Value Reference Range Interpretation Comments Ionized calcium, arterial (test 1.19 mmol/L 1.11-1.32 code = 18804-2) [place] MethodistArterial blood gas, plfwrrqtm2712-85-04 20:34:56 Test Item Value Reference Range Interpretation Comments pH, arterial (test code = 2744-1) 7.44 7.35-7.45 pCO2, arterial (test code = 2018-8) 42 35- 45 mmHg pO2, arterial (test code = 2703-7) 264 80- 90 mmHg H Temperature, Celsius (test code = 37.6 Degrees C 8310-5) O2 saturation, arterial (test code = 97 % 95-100 2708-6) pH, arterial corrected (test code = 7.43 45568-5) pCO2, arterial corrected (test code 44 mmHg = 02540-6) pO2, arterial corrected (test code = 266 mmHg 17590-3) Base excess, arterial (test code = 4 -2 - 2 mEq-L H 1925-7) Lab Interpretation (test code = Abnormal 27960-7) [place] MethodistGlucose level, lsaeghb9608-98-24 20:34:56 Test Item Value Reference Range Interpretation Comments Glucose, syringe (test code = 106 mg/dL 65-99 H 2345-7) Lab Interpretation (test code = Abnormal 65595-4) [place] MethodistHemoglobin, [id number] 20:34:56 Test Item Value Reference Range Interpretation Comments Hemoglobin, syringe (test code = 10.0 g/dL 14-18 L 718-7) Lab Interpretation (test code = Abnormal 97831-0) [place] MethodistLactic acid, aabwadg8060-96-06 20:34:56 Test Item Value Reference Range Interpretation Comments Lactic acid, syringe (test code = 0.7 mmol/L 0.5-2.2 51502-6) [place] MethodistPotassium, bxtvxmn0399-50-71 20:34:56 Test Item Value Reference Range Interpretation Comments Potassium, syringe (test code = 2007) 4.3 3.5- 5.0 mEq/L [place] MethodistSodium level, baeboll0925-25-53 20:34:56 Test Item Value Reference Range Interpretation Comments Sodium, syringe (test code = 2947-0) 139 135- 148 mEq/L [place] MethodistRotational thromboelastometry, [id number] 19:53:28 Test Item Value Reference Range Interpretation Comments Clotting time, INTEM 178 122- 208 sec (test code = 15890-9) Clot formation time, 76 45- 110 sec INTEM (test code = 27430-0) Alpha angle, INTEM 75 deg 70-81 (test code = 67964-2) A20, INTEM (test code 72 mm 51-72 = 71566-0) Maximum clot firmness, 73 mm 51-72 H INTEM (test code = 65848-2) Maximum lysis, INTEM 2 % Test st opped (test code = 89744-6) early; this is an estimated value. LI30, INTEM (test code 100 % = 40470-2) ALVIN (test code = ALVIN) PT,FIBR results called to and read back by /WTOR0 6a06/02/2020 18:52 by MR. Lab Interpretation Abnormal (test code = 62904-5) [place] MethodistRotational thromboelastometry, [id number] 19:53:28 Test Item Value Reference Range Interpretation Comments Clotting time, EXTEM 99 43- 82 sec H (test code = 32029-2) Clot formation time, 49 48- 127 sec EXTEM (test code = 07754-0) Alpha angle, EXTEM 80 deg 65-80 (test code = 11859-4) A20, EXTEM (test code 70 mm 50-70 = 69697-0) Maximum clot firmness, 72 mm 52-70 H EXTEM (test code = 38096-2) Maximum lysis, EXTEM 2 % Test st opped (test code = 28066-0) early; this is an estimated value. LI30, EXTEM (test code 100 % = 46577-0) ALVIN (test code = ALVIN) PT,FIBR results called to and read back by /[email or web address] 06/02/2020 18:52 by MR. Lab Interpretation Abnormal (test code = 92273-4) [place] MethodistRotational thromboelastometry, [id number] 19:53:28 Test Item Value Reference Range Interpretation Comments Clotting time, 175 sec HEPTM (test code = 09623-4) Clot formation 63 sec time, HEPTM (test code = 97735-1) Alpha angle, HEPTM 78 deg (test code = 36971-0) A20, HEPTM (test 72 mm code = 62265-4) Maximum clot 73 mm firmness, HEPTM (test code = 39153-3) Maximum lysis, 3 % Test stopped early; HEPTM (test code = [place] n 70558-2) estimated value . LI30, HEPTM (test 100 % HEPTEM viktor uld be code = 02285-0) compared to INTEM. INTEM-HEPTEM results allow assessment of hemostasis with out the overlaying heparin effect. ALVIN (test code = PT,FIBR results ALVIN) called to and read back by /[email or web address] 6a06/02/2020 18:52 by MR. [place] MethodistRotational thromboelastometry, [id number] 19:53:28 Test Item Value Reference Range Interpretation Comments A20, FIBTEM (test code = 41 mm 7-24 H 84386-1) Maximum clot firmness, 43 mm 7-24 H FIBTEM (test code = 92622-8) ALVIN (test code = ALVIN) PT,FIBR results called to and read back by /[email or web address] 06/02/2020 18:52 by MR. Lab Interpretation (test Abnormal code = 15776-9) [place] MethodistPlatelet kddwg3550-72-39 19:05:42 Test Item Value Reference Range Interpretation Comments Platelet count (test code = 70419-8) 202 150- 400 k/uL Rene RbapsuarhMffvpg0920-68-36 14:46:21Harley Massey MD 06/02/2020 2:47 PMAirway Date/Time: 06/02/2020 2:46 PMPerformed by: Harley Massey MDAuthorized by: Becky Laird MD Location: ORUrgency: ElectiveDifficult Airway: No Resident/PAYMENT COLLECTOR/AA: Harley Massey MDPerformed by: resident/PAYMENT COLLECTOR/AAPreoxygenated with 100% O2: Yes C- spine Precautions Maintained Throughout: Yes Mask Ventilation: Assisted maskFinal Airway Type: Endotracheal airwayFinal Endotracheal Airway: ETT - double lumen leftCuffed: Yes Technique Used: Direct laryngoscopyDevices/Methods Used in Placement: Intubating styletInsertion Site: OralBlade Type: MacintoshLaryngoscope Blade/Videolaryngoscope Blade Size: 3ETT Double Lumen (fr): 39Cuff at minimum occlusion pressure: Yes Measured from: GumsETT to Gums (cm): 31Placement Verified by: CO2 detection, direct visualization, equal breath sounds and fiber optic visualization Laryngoscopic view: Grade I - full view of glottisRapid Sequence Induction (RSI): NoModified RSI: No Number of Attempts at Approach: 1[place] MethodistArterial line 2020-06-02 14:44:12Harley Massey MD 06/02/2020 2:45 PMArterial linePerformed by: Donita Massey MDAuthorized by: Becky Laird MD Patient Location: ORStart Time: 06/02/2020 2:44 PMEnd Time: 06/02/2020 2:44 PMStaff: Resident/PAYMENT COLLECTOR/AA: Harley Massey MD Performed by: Resident/PAYMENT COLLECTOR/AAPre-procedure: patient identified, IV checked, site and side verified, risks and benefits discussed, procedure verified, surgical consent complete, patient position confirmed, monitors and equipment checked, pre-op evaluation complete and timeout performed prior to procedure MSBT: antiseptic used, all elements of maximal sterile barrier technique followed, hand hygiene performed, cap/gown used by other personnel and solutions labeled Indications: Indications: multiple ABGs and hemodynamic monitoring Anesthesia: Anesthesia: GeneralProcedure Details: Arterial Line placement: Placed post induction Line placement site: RadialLine placement side: Right Arterial line gauge: 20 GNumber of attempts: 1Ultrasound guidance used: No Post-procedure: Post-procedure: Sterile dressing applied Post procedure circulation, sensation, movement: Unable to assessLake Pleasant MethodistHepatic function ghcfy4954-09-33 04:36:09 Test Item Value Reference Range Interpretation Comments Albumin (test code = 2.8 g/dL 3.5-5 L 1751-7) Total bilirubin (test 1.0 mg/dL 0-1.2 code = 1974-2) Bilirubin direct (test 0.5 mg/dL 0-0.3 H code = 1967-7) Alkaline phosphatase 63 U/L 40-129 (test code = 6768-6) Protein (test code = 8.3 g/dL 6.3-8.3 -[place] n 2885-2) 4.6-7.0 g /dL1 week 4.4-7.6 g/dL 7 months-1year 5.1-7.3 g/dL 1-2 years 5.6-7.5 g/dL>3 years 6.0-8.0 g/mW28-370 6.3-8. 3 g/dL ALT (test code = 1742-6) 9 U/L 5-50 AST (test code = 1920-8) 29 U/L 10-50 Lab Interpretation (test Abnormal code = 06911-0) [place] MethodistEchocardiogram pmwuconqezarmrf8705-19-03 15:27:00Interface, Radiology Results In - 06/01/2020 3:28 PM CDT Transesophageal Echo Report [address], [place], [place] [address] Pat.Name: CALEB LUGO.ID: [id number] StDafneD ate: 06/01/2020 Exam Time: 11:38:00 AM Study Type:SEGUNDO Height: 67in Weight: 135lb BSA: 1.71 m2 Age: 804/24/1955,65Y Sex: MALE Sonogrphr: Clayton Carbajal MD Pat. Stat.:Inpatient Study Status:Final Echo Event ID:[id number] Order ID: [id number] Reason for Study:Mitral Valve Mechanical Prosthetic Va lve DysfunctionHistory / Clinical:Chest Pain, Chronic Renal Failure, Shortness ofBreathProcedures: Transesophageal Echo with Colorflow DopplerRace: B SUMMARY: There are very small mobile echo densities around the prosthesis , consistent with sutures No evidence of endocarditis.Mechanical bileaflet prosthetic mitral valve. There is no significantmitral prosthetic stenosisThere are mobile echo densities in the LV, consistent with remenant chordae tendineae.Suggestive of very small perivalvular mitral regurgitation inaddition to the " physiological" MR FINDINGS:-- SEGUNDO: The attending fresh meat grader performed the SEGUNDO procedure and was present for the entire duration. The patient was counseled and an informed consent was obtained. Topical and intravenous anesthesia was administered. The esophagus was intubated without difficulty. The probe was passed to the gastric fundus and all standard echocardiographic views were obtained. The patient tolerated the procedure well.LV: LV size is normal. LV EF is mildly depressed. Overall wall motion is mildly hypokinetic. Septal motion is paradoxical secondary to LBBB or conduction abnormality. Estimated EF is 45-49%.RV: RV size is moderately enlarged. RV systolic function is moderately depressed.LA: LA volume is enlarged. KRYSTEN not seenRA: RA volume is enlarged. A Eustachianvalve and/or Chiari network is seen. This is a normal variant.AO: Aortic root diameter is normal in size. Moderate atherosclerotic changes seen in the aortic arch, ascending and descending aorta.TONY: No pericardial effusion.AV: No structural AV abnormalities noted.MV: Mechanical prosthetic mitral valve. There are mobile echo densities in the LV, consistent with remanent chordae tendineae. Suggestive of very small perivalvular mitral regurgitation in addition to the " physiological" MR Estimated mean mitral valve gradient is at least 2.3 mmHg at a heart rate of 69 b/min (suboptimal CW signal). Normal velocity and gradient across the prosthesis.PV: No structural PV abnormalities noted.TV: No structural TV abnormalities noted. Mild to moderate tricuspid regurgitation SEGUNDO: Anesthesia: Per AnesthesiaASA Class: 3Physician: Chey Slade M.D. Control Technician: Luis Marshall SEGUNDO BP HR Post SEGUNDO BP HR 142/57 772 132/58 67Meds: Viscousxylocaine, Cetacaine spray to oropharynx, PerAnesthesiaComplications: None Condition:Good MEASUREMENTS: -------- DOPPLERMV Forward Flow MV pkVel 185.2 cm/s MVMean G 4.1 mmHg MV pkPG 13.7 mmHg MV TVI 38.4 cm Signed 06/01/2020 03:27 PMSu Alberto Slade M.D.[place] MethodistECG Pre/Post [id number] 14:15:37 Test Item Value Reference Range Interpretation Comments Ventricular rate (test 82 code = 253) QRSD interval (test code 76 = 260) QT interval (test code = 346 264) QTC interval (test code 404 = 265) QRS axis 1 (test code = 86 268) T wave axis (test code = 79 270) EKG impression (test Normal sinus code = 273) rhythm-ST elevation, consider early repolarization, pericarditis, or injury-Nonspecific ST abnormality-Abnormal ECG- [place] MethodistTransthoracic Echocardiogram Complete, (w Contrast, Strain and 3D if needed)2020-05-29 11:54:00Interface, Radiology Results In - 05/29/2020 11:54 AM CDT Echocardiography Report [address] [place] [address] Pat.Name: CALEB LUGO Melissa.ID: [id number].Date: 05/29/2020 Refer.MD: JUJU BOLAND MD Exam Time: 8:40:00 AM Study Type:Routine Echo Height: 67in Weight: 150lb BSA: 1.79 m2 Age: 804/24/1955,65Y Sex: MALE BP: 129/70 HR: 88 bpm Sonogrphr: CAROLYN Herbert Pat. Stat.:Inpatient Room: [facility] Study Status:Final Echo Event ID:[id number] Order ID: [id number] Reason forStudy:Chest pain, cardiac etiology suspectedHistory / Clinical:Chest Pain, Chronic Renal Failure, Shortness ofBreathProcedures: 2D Echo, Colorflow Doppler, Portable, Intravenous DefinityContrast-------- SUMMARY: Moderate ly dilated LV with mildly depressed function.RV is dilated with depressed function.Mechanical prosthetic mitral valve. Moderate to severely elevatedgradient across the prosthetic valve (10 mm Hg at a HR 87 b/min). MVTVI/LVOT TVI = 2.8. 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 However, pressure half time is normal, suggesting an elementof PPM. Mild to moderate MR based on volumetric assessment (RV 21 cc,RF 28%).Possible torn chordae visualized in the left ventricleEstimated PA systolic pressure is 69 mm Hg, assuming a mean RAP of 20mmHg.Pleural effusion is present.Recommend SEGUNDO for further evaluation of prosthetic valve function andpresence of MR/paravalvular MR. FIND INGS: LV: LV size is moderately enlarged. Biplane LV ejection fraction= 45% LV EF is mildly depressed. Septal motion is paradoxical. Global hypokinesis.RV: RV size is enlarged. RV systolic function is depressed.LA: LA volume is moderately enlarged.RA: RA volume is enlarged.AO: Aortic root diameter is normal.TONY: No pericardial effusion.PLE: Pleural effusion is present.AV: A focal echodensity is noted on the NCC. This likely represent a focal calcification. Clinical correlation recommended. MV: Mechanical prosthetic mitral valve. Calcified papillary muscle. Possible torn chordae visualized in the left ventricle Moderate to severely elevated gradient across the prosthetic valve (10 mm Hg at a HR 87 b/min). MV TVI/LVOT TVI = 2.8. 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 However, pressure half time is normal, suggesting an element of PPM. Mild to moderate MR based on volumetric assessment (RV 21 cc, RF 28%).PV: No structural PV abnormalities noted.TV: No structural TV abnormalities noted. Mild tricuspid regurgitation Other: Estimated PA systolic pressure is 69 mmHg, assuming a mean RAP of 20 mmHg. MEASUREMENTS: 2DParasternal Long [place] Ao An 1.9 cm LVPWd 0.9 cm Ao Rtd 3.3 cm Index 1.8 cm/m2 LA Ds 4.8 cm IVSd 0.78 cm RWT 0.35 LVIDd 5.1 cm Index 2.9 cm/m2 LV Mass 152 g (122-174) LVIDs 4.4 cm LVM Index 85 g/m2 LV%fs 15 % LVOT 2 cm LV EF Biplane LVEDV 164 ml (65-193) Index 91 ml/m2LV CI 3.6 l/m/m2 LVESV 90 ml Index 50 ml/m2 LVSV 74 ml LV EF 45 % (63-77)* HR 87 bpm LV CO6.4 l/min LA Sng Plane LA Area 23 cm2 (8.8-23.4) LA Vol 78 ml Index 43 ml/m2 LA LngAx 5.8 cm RA Sng Plane RA Vol 68 ml Index 38 ml/m2 RA LngAx 5.9 cm RA Area 22 cm2 (8.3-19.5)*LVOT LVOT Area 3.2 cm2 DOPPLERLVOT Stroke Vol & Cardiac Out LVOT TVI 17 cm HR 86 bpm LVOT LVOT SV 53 ml LVOT CO 4.6 l/min SVi 30 ml/m2 LVOT CI 2.6 l/m/m2MV Forward Flow MV pkVel 272 cm/s MV TVI 49 cm MV pkPG 30 mmHg MV Area P1/2t 2.8 cm2 (4-6)* MV Mean G 9.8 mmHg MV Dec T 266 msecTVPressure Gradient TV PkVel 358 cm/s TV PG 51 mmHg Signed 05/29/2020 11:54 Raj Everett MethodistSputum ifvxima4623-05-72 02:31:33 Test Item Value Reference Range Interpretation Comments Sputum culture Normal oral Specimen isolate (test pete InformationSpe [facility] code = 2234) isolated. Source: SputumS pecimen [facility] MethodistB natriuretic [id number] 13:57:05 Test Item Value Reference Range Interpretation Comments BNP (test code = 17083-2) 882 pg/mL 0-100 H Lab Interpretation (test code = Abnormal 86274-5) Rene HopenatalieVancomycin level, cfmrdx3664-80-94 06:29:11 Test Item Value Reference Range Interpretation Comments Vancomycin, random (test code = 18.5 ug/mL 11002-2) [place] MethodistTPA/Dornase Hnigoxmzdotyow3037-76-01 12:19:05Julieta Brock PA 05/16/2020 12:22 PMTPA/Dornase Administration Date/Time: 05/16/2020 10:40 AMPerformed by: Julieta Brock, PAAuthorized by: Uri Nicole MD Consent: Consent obtained: Verbal Consent given by: Patient Risks discussed: Bleeding, incomplete drainage, infection and pain Alternatives discussed: No treatmentUniversal protocol: Procedure explained and questions answered to patient or proxy's satisfaction: yes Relevant documents present and verified: yes Test results availableand properly labeled: yes Imaging studies available: yes Required blood products, implants, devices, and special equipment available: yes Site/side marked: yes Immediately prior to procedure, a time out was called: yes Patient identity confirmed: Verbally with patient, arm band and hospital-assigned identification numberIndications: Indications: Left pleural effusionAnesthesia (seeMAR for exact dosages): Anesthesia method: NonePost-procedure details: Patient tolerance of proc edure: Tolerated well, no immediate complicationsRene Centenoood culture, aerobic & ankrtyxhd0821-09-74 19:33:07 Test Item Value Reference Range Interpretation Comments Blood culture No growth Specimen isolate (test after 5 days InformationSpe cimen code = 600-7) of Source: BloodS pecimen incubation. Site: Hand, rig ht [place] Joannelbumin, misc [id number] 23:55:35 Test Item Value Reference Range Interpretation Comments Fluid type Thoracentesis (test code = 59628-0) Albumin, fluid 1.7 g/dL The reference interval(s) (test code = and other metho d 1747-5) performance specifications have not been establishe d for this body fluid. The test results must be integrated into the clinical contex t for interpretation. This test has been modifi ed from the manufacture rs instructions. The performance characteristics were determined by Chu chavez in a manner consiste nt with CLIA requiremen ts. This test has not be en cleared or approved by the U.S. Food and Drug Administration. Rene WilsonGlucose level, [facility] [id number] 23:55:16 Test Item Value Reference Range Interpretation Comments Fluid type Thoracentesis (test code = 45241-7) Glucose, fluid 39 mg/dL The reference interval(s) (test code = and other metho d 2344-0) performance specifications have not been establishe d for this body fluid. The test results must be integrated into the clinical contex t for interpretation. This test has been modifi ed from the BluPanda rs instructions. The performance characteristics were determined by Chu chavez in a manner consiste nt with CLIA requiremen ts. This test has not be en cleared or approved by the U.S. Food and Drug Administration. Rene WilsonLDH, [facility] [id number] 23:55:16 Test Item Value Reference Range Interpretation Comments Fluid type Thoracentesis (test code = 23756-0) LDH, fluid 201 U/L The reference i nterval(s) (test code = and other metho d 90076-4) performance specifications have not been establishe d for this body fluid. The test results must be integrated into the clinical contex t for interpretation. This test has been modifi ed from the BluPanda rs instructions. The performance characteristics were determined by Chu chavez in a manner consiste nt with CLIA requiremen ts. This test has not be en cleared or approved by the U.S. Food and Drug Administration. Rene WilsonProtein, [facility] [id number] 23:55:16 Test Item Value Reference Range Interpretation Comments Fluid type Thoracentesis (test code = 75242-3) Protein, fluid 3.7 g/dL The reference interval(s) (test code = and other metho d 2881-1) performance specifications have not been establishe d for this body fluid. The test results must be integrated into the clinical contex t for interpretation. This test has been modifi ed from the Blu[employer] rs instructions. The performance characteristics were determined by Chu chavez in a manner consiste nt with CLIA requiremen ts. This test has not be en cleared or approved by the U.S. Food and Drug Administration. Rene WilsonTriglycerides, [facility] [id number] 23:55:16 Test Item Value Reference Range Interpretation Comments Fluid type Thoracentesis (test code = 69124-0) Triglyceride, 50 mg/dL The reference interval(s) fluid (test and other metho d code = 56721-4) performance specifications have not been establishe d for this body fluid. The test results must be integrated into the clinical contex t for interpretation. This test has been modifi ed from the manufacture rs instructions. The performance characteristics were determined by Chu chavez in a manner consiste nt with CLIA requiremen ts. This test has not be en cleared or approved by the U.S. Food and Drug Administration. Rene WilsonpH, [facility] [id number] 22:19:02 Test Item Value Reference Range Interpretation Comments Fluid type (test Thoracentesis code = 50535-5) pH, fluid (test 8.00 Reference ra nges are code = 2748-2) not establish ed for Miscellanous sp ecimens. Rene MethodistAmylase level, [facility] [id number] 22:19:02 Test Item Value Reference Range Interpretation Comments Fluid type Thoracentesis (test code = 94749-2) Amylase, fluid 44 U/L The reference interval(s) (test code = and other metho d 1795-4) performance specifications have not been establishe d for this body fluid. The test results must be integrated into the clinical contex t for interpretation. This test has been modifi ed from the manufacture rs instructions. The performance characteristics were determined by Chu chavez in a manner consiste nt with CLIA requiremen ts. This test has not be en cleared or approved by the U.S. Food and Drug Administration. Rene WilsonCell count and differential, body [id number] 20:37:46 Test Item Value Reference Range Interpretation Comments [facility] fluid type (test code = Thoracentesis 36553-9) Color, fluid (test code = [place] 6824-7) Appearance, fluid (test code = Hazy 9335-1) RBC, fluid (test code = 22,000 /CMM 18004-2) Nucleated cells, fluid (test 104 /CMM code = 16274-0) Fluid mononuclear cell (test See Diff code = 1407) Neutrophils, fluid (test code = 2 % 91759-5) Lymphocytes, fluid (test code = 98 % 03202-1) Rene MethodistXR Chest 1 [id number] 17:11:53Hm Interface, Radiology Results 05/12/2020 5:14 PM CDTEXAMINATION: XR CHEST 1 VWCLINICAL HISTORY: post pleural catheter insertionCOMPARISON: Chest 1 view dated 05/09/2020IMPRESSION:1. Interval placement of a left pleural catheter. No pneumothorax. Left pleural effusion is decreased in size from the prior study. Right pleural effusion and right lower lobe atelectasis are unchanged.2. The c ardiac silhouette is enlarged. Mild central pulmonary vascular congestion is improved.3. No acute osseousHMWH-[id number] BuddhistUS Insert Pleura [id number] 17:07:52Hm Interface, Radiology Results 05/12/2020 5:10 PM CDTProcedure:Ultrasound-guided left thoracostomy tube placementPerforming Radiologist:Bhavna Shea [facility] CENTERssistants:Dr. OseiAnesthesiev Type: Intraservice moderate sedation was administered by the procedure nurse and monitored by the procedure physician for10 minutes. Lidocaine 1% was used for local anesthesia.Preprocedure Diagnosis:Recurrent pleural effusionPost Procedure Diagnosis:Same Technique:After explaining the procedure as well as its benefits and risks including but not limited to bleeding, infection, and damage to adjacent structures, all of the patient's questions were answered to apparent satisfaction and written informed consent was then obtained.The patient was taken to the ultrasound suite and placed in the right lateral decubitus position. The left posterior chest was interrogated with ultrasound which revealed a moderate complex pleural effusion. Overlying skin was then prepped and draped in usual sterile fashion. Lidocaine was administered locally.Under direct ultrasound guidance a 5 Swazi Yueh needle was inserted into the left pleural space. The inner stylette was removed and a guidewire advanced. Following serial dilatation over the wire an 8 Swazi locking pigtail catheter was placed. Approximately 20 cc offluid were aspirated and sent to laboratory for culture and sensitivity. The catheter was then affixe d the patient's skin with 2-0 silk and placed to Pleur-evac drainage. Patient tolerated the procedure well.Complications:NoneSpecimens Removed:As aboveEstimated Blood Loss:Less than 1 mLBlood/Blood Products Administered:NoneGrafts/Implants:As described in the above report.Impression:Successful, uncomplicated ultrasound-guided left thoracostomy tube placement.[id number] MethodistCD 4/8 [id number] 09:39:16 Test Item Value Reference Range Interpretation Comments CD3% (test code = 57 % 57-85 8124-0) CD3 absolute count 276 ul 544-2501 L (test code = 8122-4) CD4% (test code = 31 % 37-57 L 8123-2) CD4 absolute count 149 ul 488-1340 L (test code = 17661-3) CD8% (test code = 26 % 13-40 8101-8) CD8 absolute count 126 ul 136-937 L (test code = 22444-9) CD4/CD8 ratio (test 1.2 0.8-2.9 code = 88616-8) CD 4/8 subset (test See link below Case N umber: code = 1013) for PDF Lab [id number] Report Lab Interpretation Abnormal (test code = 70782-2) [place] MethodistCRITICAL [id number] 01:13:17MoMegan marie MD 05/10/2020 1:22 PMCritical CarePerformed by: Leora Calloway, PAAuthorized by: Megan Mcmahon MD Critical care provider statement: Critical care time (minutes): 35 Critical care time was exclusive of: Separately billable procedures and treating other patients Critical care was necessary to treat or prevent imminent or life-threatening deterioration of the following conditions: Metabolic crisis Critical care was time spent personally by me on the following activities: Blood draw for specimens, development of treatment plan with patient or surrogate, discussions with consultants, discussions with primary provider, evaluation of patient's response to treatment, examination of patient, re-evaluation of patient's condition, pulse oximetry, ordering andreview of radiographic studies, ordering and review of laboratory studies, ordering and performing treatments and interventions and review of old charts Bhavna 'yes' if you are taking over critical carefor this patient from another provider.: no [place] MethodistRespiratory pathogen [id number] 20:30:03 Test Item Value Reference Interpretation Comments Range Adenovirus PCR (test Not Detected Specime n code = 7092) InformationSpec imen Source: [facility] ecimen Site: Right Coronavirus HKU1 PCR Not Detected (test code = 7093) Coronavirus NL63 PCR Not Detected (test code = 7094) Coronavirus 229E PCR Not Detected (test code = 7095) Coronavirus OC43 PCR Not Detected (test code = 7096) Human Not Detected metapneumovirus PCR (test code = 7097) Human Not Detected rhinovirus/enterovir us PCR (test code = 7098) Influenza A PCR Not Detected (test code = 7099) Influenza A/H1 PCR Not Reported (test code = 7100) Influenza A/H3 PCR Not Reported (test code = 7102) Influenza A/H1-2009 Not Reported PCR (test code = 7101) Influenza B PCR Not Detected (test code = 7104) Parainfluenza virus Not Detected 1 PCR (test code = 7105) Parainfluenza virus Not Detected 2 PCR (test code = 7106) Parainfluenza virus Not Detected 3 PCR (test code = 7107) Parainfluenza virus Not Detected 4 PCR (test code = 7108) Respiratory Not Detected syncytial virus PCR (test code = 7109) Bordetella pertussis Not Detected PCR (test code = 8914270) Bordetella Not Detected parapertussis PCR (test code = 7258376) Chlamydia pneumoniae Not Detected PCR (test code = 3753) Mycoplasma Not Detected pneumoniae PCR (test code = 7110) Influenza A no sub Not Reported type PCR (test code = 7127) Rene MethodistInfluenza antigen test, reflex negative to [id number] 20:26:21 Test Item Value Reference Range Interpretation Comments Influenza Negative for Specimen antigen (test Influenza A/B Information ecimen code = 92557-7) antigen. Source: Emperatriz sSpecimen Site: Right Rene MethodistECG 12 [id number] 20:10:26Interface, External Ris In 2020 8:10 PM CDTVentricular Rate 86 BPMAtrial Rate 88 BPMQRS Duration 76 msQ-T Interval 382 msQTC Calculation(Bazett) 457 msR [place] 50 degreesT [place] [address] abnormalityAbnormal ECGWhen compared with ECG of 16-DEC-2018 13:58,Currentundetermined rhythm precludes rhythm comparison, needs reviewConfirmed by MD SHAYNA, GUSTAVO ([id number]) on 2020 8:10:24 [facility] 2020-04-22 00:23:00Juliana Avila MD 04/22/2020 1:24 AMECG/EKG InterpretationDate/Time: 04/22/2020 1:24 AMPerformed by: Juliana Avila MDAuthorized by: Juliana Avila MD The ECG was interpreted by ED physician. The ECG is interpreted as sinus rhythm. Rate is normal rate. Heart rate is 86 BPM.Conduction: conduction normal. ST segments normal. T waves normal.[facility] [id number] 23:28:00 Test Item Value Reference Range Interpretation Comments Troponin I (test code = 0.04 ng/mL 0-0.03 H 06270-7) ALVIN (test code = ALVIN) Troponin I [...] failure, acidosis, acute neurological disease, and persistent tachyarrhythmia.Opera tor ID - PIAYA L Lab Interpretation (test Abnormal code = 93639-6) [facility] [id number] 23:28:00 Test Item Value Reference Range Interpretation [...] failure, acidosis, acute neurological disease, and persistent tachyarrhythmia.Veterinarian Poultry ID - PIAYA LBasic Metabolic [id number] 23:26:00 Test Item Value Reference Range Interpretation Comments Sodium (test code = 137 meq/L 287-550 7117-2) Potassium (test code = 4.2 meq/L 3.5-5.1 2823-3) Chloride (test code = 94 meq/L 98-107 L 2075-0) CO2 (test code = 34 meq/L 22-29 H 2028-9) BUN (test code = 21 mg/dL 7-21 3094-0) Creatinine (test code 4.95 mg/dL 0.57-1.25 H = 2160-0) Glucose (test code = 126 mg/dL 70-105 H 2345-7) Calcium (test code = 9.4 mg/dL 8.4-10.2 72990-0) EGFR (test code = 14 mL/min/1.73 [place] [address]-8) NOT ACCURATE CREATININE CLEARANCE IN PREDICTING GLOMERULAR FILTRATION RATE . ESTIMATED GFR I S NOT APPLICABLE FOR DIALYSIS PATIENTS. ALVIN (test code = ALVIN) Veterinarian Poultry ID - PIAYA L Lab Interpretation Abnormal (test code = 01814-3) [facility] [id number] 23:26:00 Test Item Value Reference Range Interpretation [...] S NOT APPLICABLE FOR DIALYSIS PATIEN TS. Veterinarian Poultry ID Patel ODEN LB-type Natriuretic Factor (BNP)2020-04-21 23:25:00 Test Item Value Reference Range Interpretation Comments BNP (test code = 08002-5) 1507 pg/mL 0-100 H ALVIN (test code = ALVIN) Veterinarian Poultry ID Patel ODEN L Lab Interpretation (test Abnormal code = 64406-5) [facility] NATRIURETIC FACTOR (BNP)2020-04-21 23:25:00 Test Item Value Reference Range Interpretation Comments B-TYPE NATRIURETIC PEPTIDE 1507 pg/mL 0-100 H (BEAKER) (test code = 700) Veterinarian Poultry ID - AKSHAT LPT/[id number] 23:09:00 Test Item Value Reference Range Interpretation Comments Protime (test code = 25.1 11.9- 14.2 H 5902-2) seconds INR (test code = 2.34 <=5.90 6301-6) PTT (test code = 38.7 22.5- 36.0 H 30877-0) seconds ALVIN (test code = ALVIN) Effective 01/28/2019: PT Reference Range ChangeNew: 11.9-14.2 Previous: 11.7-14.7 RECOMMENDED COUMADIN/WARFARIN INR THERAPY RANGESSTANDARD DOSE: 2.0-3.0 Includes: PROPHYLAXIS for venous thrombosis, systemic embolization; TREATMENT for venous thrombosis and/or pulmonary embolus.HIGH RISK: Target INR is 2.5-3.5 for patients wiht mechanical heart valves. Lab Interpretation Abnormal (test code = 75784-1) [facility] HospitalPT/[id number] 23:09:00 Test Item Value Reference Range Interpretation [...] heart valves.CBC with platelet count + automated [id number] 22:49:00 Test Item Value Reference Range Interpretation [...] K/CU MM L MPV (test code = 78724-8) 9.0 fL 9.4-12.4 L nRBC (test code [...] 2801) Lab Interpretation (test code = Abnormal 91454-3) [facility] HospitalCBC W/PLT COUNT & AUTO [id number] 22:49:00 Test Item Value Reference Range Interpretation [...] (test code = 2801) RAD, CHEST, 2 [id number] 22:26:00Reason for exam:->SHORTNESS OF BREATH FINAL REPORT [...] acute abnormality.Additional findings: None. Signed: Edenilson Gutierrez Verified Date/Time: 04/21/2020 22:26:38 XR chest 2 [id number] 22:26:00Interface, External Ris In - 04/21/2020 10:28 [...] acute abnormality.Additional findings: None. Signed: Edenilson Gutierrez Verified Date/Time: 04/21/2020 22:26:38 [facility]-Glucose [id number] 15:36:00 Test Item Value Reference Range Interpretation Comments POC-Glucose Meter (test 133 mg/dL 70-110 H : TE STED AT [facility] code = 1538) [address] [facility], 770 30: Veterinarian Poultry/Techni kush ID = [id number] for Eulalio Samson Lab Interpretation (test Abnormal code = 48016-7) [facility] HospitalPOCT-GLUCOSE [id number] 15:36:00 Test Item Value Reference Range Interpretation Comments POC-GLUCOSE METER 133 mg/dL 70-110 H : TESTED A T [facility] 6720 (BEZOILA) (test code = [facility], 1538) [address]: Veterinarian Poultry/Techni kush ID = [id number] for Phyllis Rao POCT-GLUCOSE [id number] 12:38:00 Test Item Value Reference Range Interpretation Comments POC-GLUCOSE METER 100 mg/dL 70-110 : TESTED A T [facility] 6720 (BEZOILA) (test code = [facility], 1538) [address]79[address]: Veterinarian Poultry/Techni kush ID = [id number] for Phyllis Rao HEMODIALYSIS [id number] 12:23:00Chu, Simeon Gallego RN 03/03/2020 12:24 PMHD [...] Lab Results Component Value Date HEPBSAG Nonreactive 02/27/2020[facility] HospitalaPTT2020-07-02 09:28:00 Test Item Value Reference Range Interpretation Comments PTT (test code = 11664-0) 67.8 22.5- 36.0 seconds H Lab Interpretation (test code = Abnormal 10077-7) [facility] HospitalAPTT2020-07-02 09:28:00 Test Item Value Reference Range Interpretation Comments PARTIAL THROMBOPLASTIN TIME 67.8 seconds 22.5-36.0 H (BEAKER) (test code = 760) [id number] 07:14:00 Test Item Value Reference Range Interpretation Comments PARTIAL THROMBOPLASTIN TIME 146.9 seconds 22.5-36.0 H (BEAKER) (test code = 760) CBC W/PLT COUNT & AUTO [id number] 05:40:00 Test Item Value Reference Range Interpretation [...] (BEAKER) (test code = 2801) BASIC METABOLIC [id number] 05:24:00 Test Item Value Reference Range Interpretation [...] S NOT APPLICABLE FOR DIALYSIS PATIEN TS. Veterinarian Poultry ID - LORENZO WDaily Prothrombin time/INR while on [id number] 04:52:00 Test Item Value Reference Range Interpretation [...] warfarin. Lab Interpretation Abnormal (test code = 55240-7) [facility] HospitalPROTHROMBIN TIME/[id number] 04:52:00 Test Item Value Reference Range Interpretation [...] T [facility] [address] (BEAKER) (test code = [employer] [facility], 1538) [address]: Veterinarian Poultry/Techni kush ID = [id number] for KATIA RAO [id number] 21:05:00 Test Item Value Reference Range Interpretation Comments PARTIAL THROMBOPLASTIN TIME 66.8 seconds 22.5-36.0 H (BEAKER) (test code = 760) [id number] 19:49:00 Test Item Value Reference Range Interpretation Comments PARTIAL THROMBOPLASTIN TIME > seconds 22.5-36.0 HH (BEAKER) (test code = 760) POCT-GLUCOSE [id number] 17:09:00 Test Item Value Reference Range Interpretation Comments POC-GLUCOSE METER 145 mg/dL 70-110 H : TESTED A T [facility] 6720 (BEAKER) (test code = [facility], 1538) [address]: Veterinarian Poultry/Techni kush ID = [id number] for Christina Chisholm POCT-GLUCOSE [id number] 12:10:00 Test Item Value Reference Range Interpretation Comments POC-GLUCOSE METER 113 mg/dL 70-110 H : TESTED A T [facility] 67[address] (BEAKER) (test code = [facility], 1538) [address]: Veterinarian Poultry/Techni kush ID = [id number] for Christina Chisholm [id number] 11:50:00 Test Item Value Reference Range Interpretation Comments PARTIAL THROMBOPLASTIN TIME 96.6 seconds 22.5-36.0 H (BEAKER) (test code = 760) POCT-GLUCOSE [id number] 08:28:00 Test Item Value Reference Range Interpretation Comments POC-GLUCOSE METER 150 mg/dL 70-110 H : TESTED A T [facility] [address] (BEAKER) (test code = [facility], 1538) [address]: Veterinarian Poultry/Techni kush ID = [id number] for Christina Chisholm BASIC METABOLIC [id number] 06:15:00 Test Item Value Reference Range Interpretation [...] S NOT APPLICABLE FOR DIALYSIS PATIEN TS. Veterinarian Poultry ID - BSCBC W/PLT COUNT & AUTO [id number] 06:12:00 Test Item Value Reference Range Interpretation [...] 0-1 PERCENT (BEAKER) (test code = 2801) [id number] 05:43:00 Test Item Value Reference Range Interpretation Comments PARTIAL THROMBOPLASTIN TIME 61.8 seconds 22.5-36.0 H (BEAKER) (test code = 760) PROTHROMBIN TIME/[id number] 05:42:00 Test Item Value Reference Range Interpretation [...] mg/dL 70-110 H : TESTED Ev Wade [facility] [address] (JARROD) (test code = [facility] [place], 1538) [address]: Veterinarian Poultry/Techni kush ID = [id number] for AN BENITA ERNANDEZ [id number] 22:49:00 Test Item Value Reference Range Interpretation Comments PARTIAL THROMBOPLASTIN TIME 86.0 seconds 22.5-36.0 H (BEAKER) (test code = 760) PT/[id number] 15:29:00 Test Item Value Reference Range Interpretation [...] INR is2.5-3.5 for patients wiht mechanical heart valves.[id number] 15:29:00 Test Item Value Reference Range Interpretation Comments PARTIAL THROMBOPLASTIN TIME 90.0 seconds 22.5-36.0 H (BEAKER) (test code = 760) HEMODIALYSIS [id number] 12:40:00Maria Isabel Kelly RN 03/01/2020 2:57 PMProcedure [...] BP: 112/78 Pulse: 97 Resp: Temp: SpO2:98%[facility] [id number] 12:20:00 Test Item Value Reference Range Interpretation [...] S NOT APPLICABLE FOR DIALYSIS PATIEN TS. Veterinarian Poultry ID - ANTONIA FCBC W/PLT COUNT & AUTO [id number] 07:29:00 Test Item Value Reference Range Interpretation [...] 0-1 PERCENT (BEAKER) (test code = 2801) [id number] 07:20:00 Test Item Value Reference Range Interpretation Comments PARTIAL THROMBOPLASTIN TIME 61.2 seconds 22.5-36.0 H (BEAKER) (test code = 760) While on warfarin.BASIC METABOLIC [id number] 07:06:00 Test Item Value Reference Range Interpretation [...] S NOT APPLICABLE FOR DIALYSIS PATIEN TS. Veterinarian Poultry ID - ANTONIA FPROTHROMBIN TIME/[id number] 06:37:00 Test Item Value Reference Range Interpretation [...] for patients wiht mechanical heart valves.While on warfarin.[id number] 23:03:00 Test Item Value Reference Range Interpretation Comments PARTIAL THROMBOPLASTIN TIME 54.4 seconds 22.5-36.0 H (BEAKER) (test code = 760) POCT-GLUCOSE [id number] 22:30:00 Test Item Value Reference Range Interpretation Comments POC-GLUCOSE METER 96 mg/dL 70-110 : TESTED A T [facility] 6720 (BEAKER) (test code = [facility], 1538) [address]: Veterinarian Poultry/Techni kush ID = [id number] for BENITA MASSEY POCT-GLUCOSE [id number] 15:59:00 Test Item Value Reference Range Interpretation Comments POC-GLUCOSE METER 133 mg/dL 70-110 H : TESTED A T [facility] [address] (BEAKER) (test code = [facility], 1538) 67[address]: Veterinarian Poultry/Techni kush ID = [id number] for Phyllis Rao [id number] 15:38:00 Test Item Value Reference Range Interpretation Comments PARTIAL THROMBOPLASTIN TIME 88.8 seconds 22.5-36.0 H (BEAKER) (test code = 760) POCT-GLUCOSE [id number] 12:08:00 Test Item Value Reference Range Interpretation Comments POC-GLUCOSE METER 130 mg/dL 70-110 H : TESTED A T [facility] 67[address] (BEAKER) (test code = [facility], 1538) 14765: Veterinarian Poultry/Techni kush ID = [id number] for Margarita travis Aremarlina PROTHROMBIN TIME/[id number] 11:48:00 Test Item Value Reference Range Interpretation [...] INR is2.5-3.5 for patients wiht mechanical heart valves.[id number] 09:34:00 Test Item Value Reference Range Interpretation Comments PARTIAL THROMBOPLASTIN TIME 74.6 seconds 22.5-36.0 H (BEAKER) (test code = 760) CBC W/PLT COUNT & AUTO [id number] 01:34:00 Test Item Value Reference Range Interpretation [...] (BEAKER) (test code = 2801) BASIC METABOLIC [id number] 01:29:00 Test Item Value Reference Range Interpretation [...] S NOT APPLICABLE FOR DIALYSIS PATIEN TS. Veterinarian Poultry ID - AKSHAT [id number] 01:13:00 Test Item Value Reference Range Interpretation Comments PARTIAL THROMBOPLASTIN TIME 56.4 seconds 22.5-36.0 H (BEAKER) (test code = 760) POCT-GLUCOSE [id number] 23:59:00 Test Item Value Reference Range Interpretation Comments POC-GLUCOSE METER 134 mg/dL 70-110 H : TESTED A T [facility] [address] (BEAKER) (test code = [facility] [place], 1538) [address]: Veterinarian Poultry/Techni kush ID = [id number] for SCOOTER MIRZA [id number] 18:52:00 Test Item Value Reference Range Interpretation Comments PARTIAL THROMBOPLASTIN TIME 47.3 seconds 22.5-36.0 H (BEAKER) (test code = 760) [id number] 18:18:00 Test Item Value Reference Range Interpretation Comments PARTIAL THROMBOPLASTIN TIME > seconds 22.5-36.0 HH (BEAKER) (test code = 760) POCT-GLUCOSE [id number] 18:15:00 Test Item Value Reference Range Interpretation Comments POC-GLUCOSE METER 143 mg/dL 70-110 H : TESTED A T [facility] [address] (BEAKER) (test code = [facility], 1538) [address]: Veterinarian Poultry/Techni kush ID = [id number] for DO BBINS, RANDI POCT-GLUCOSE [id number] 12:15:00 Test Item Value Reference Range Interpretation Comments POC-GLUCOSE METER 123 mg/dL 70-110 H : TESTED A T [facility] 6720 (BEAKER) (test code = [facility], 1538) [address]: Veterinarian Poultry/Techni kush ID = [id number] for DO BBINS, RANDI [id number] 11:28:00 Test Item Value Reference Range Interpretation Comments PARTIAL THROMBOPLASTIN TIME 57.3 seconds 22.5-36.0 H (BEAKER) (test code = 760) POCT-GLUCOSE [id number] 06:49:00 Test Item Value Reference Range Interpretation Comments POC-GLUCOSE METER 86 mg/dL 70-110 : TESTED A T [facility] 6720 (BEAKER) (test code = [facility], 1538) [address]: Veterinarian Poultry/Techni kush ID = [id number] for SCOOTER MAYA BASIC METABOLIC [id number] 06:19:00 Test Item Value Reference Range Interpretation [...] S NOT APPLICABLE FOR DIALYSIS PATIEN TS. Veterinarian Poultry ID - PIAYA LCBC W/PLT COUNT & AUTO [id number] 04:57:00 Test Item Value Reference Range Interpretation [...] PERCENT (BEAKER) (test code = 2801) POCT-GLUCOSE [id number] 02:25:00 Test Item Value Reference Range Interpretation Comments POC-GLUCOSE METER 69 mg/dL 70-110 L : TESTED A T [facility] 6720 ([facility]) (test code = [facility], 1538) [address]: Veterinarian Poultry/Techni kush ID = [id number] for MIHAELA PEREZ FL, FLUORO, NON-SPECIFIC, UP TO 1 [id number] 01:47:00Reason for exam:- >orif right femurFluoroscopic unit utilized for a procedure performed in the OR. No interpretation was requested. Refer to the operative report for findings. Refer to PACS for patient radiation dose information.FL fluoro non- specific up to 1 [id number] 01:47:00Interface, External Ris In - 02/28/2020 1:50 AM CDTFluoroscopic unit utilized for a procedure performed in the OR. No interpretation was requested. Refer to the operative report for findings. Referto PACS for patient radiation dose information.[facility] HospitalAPTT2020-06-[facility] 20:21:00 Test Item Value Reference Range Interpretation Comments PARTIAL THROMBOPLASTIN TIME 41.1 seconds 22.5-36.0 H (BEAKER) (test code = 760) 6 hours after starting heparin infusion and as indicated per sliding scale HEMODIALYSIS [id number] 18:35:06Alma Delia Rachel RN 02/27/2020 6:35 PMLab [...] Patient tolerated procedure well. Alma Delia Rachel RNSan Dimas Community HospitalPOCT-GLUCOSE [id number] 17:57:00 Test Item Value Reference Range Interpretation Comments POC-GLUCOSE METER 82 mg/dL 70-110 : TESTED A T [facility] 6720 (BEAKER) (test code = [facility], 1538) [address]: Veterinarian Poultry/Techni kush ID = [id number] for ALMA DELIA PATHAK [id number] 17:14:00 Test Item Value Reference Range Interpretation Comments Ferritin (test code = 5182.19 ng/mL 5-275 H 2276-4) ALVIN (test code = ALVIN) Veterinarian Poultry ID - JOEL Turner Lab Interpretation (test Abnormal code = 19920-9) [facility] HospitalFERRITIN2020-06-27 17:14:00 Test Item Value Reference Range Interpretation Comments FERRITIN (BEAKER) (test code = 5182.19 ng/mL 5.00-275.00 H 361) Veterinarian Poultry JOSE - JOEL Kim, TIBC, % sat. (without ferritin)2020-02-27 16:01:00 Test Item Value Reference Range Interpretation Comments Iron (test code = 2498-4) 125.0 ug/dL 40-160 TIBC (test code = 2500-7) 219 ug/dL 250-450 L Iron % Saturation (test 57 % 20-55 H code = 2502-3) ALVIN (test code = ALVIN) Veterinarian Poultry ID - JOEL W Lab Interpretation (test Abnormal code = 74242-0) [facility] HospitalIRON, TIBC, % SAT. (WITHOUT FERRITIN)2020-02-27 16:01:00 Test Item Value Reference Range Interpretation Comments IRON (BEAKER) (test code = 547) 125.0 ug/dL 40.0-160.0 TOTAL IRON BINDING CAPACITY 219 ug/dL 250-450 L (BEAKER) (test code = 769) IRON % SATURATION (2) (BEAKER) 57 % 20-55 H (test code = 2590) Veterinarian Poultry ID - JOEL [id number] 12:54:00 Test Item Value Reference Range Interpretation Comments PARTIAL THROMBOPLASTIN TIME 41.5 seconds 22.5-36.0 H (BEAKER) (test code = 760) Prior to initiating heparinPlatelet [id number] 12:51:00 Test Item Value Reference Range Interpretation Comments Platelets (test code = 116 150- 450 K/CU MM L 777-3) ALVIN (test code = ALVIN) Veterinarian Poultry ID - [id number] clot Lab Interpretation (test Abnormal code = 74091-5) [facility] HospitalPLATELET [id number] 12:51:00 Test Item Value Reference Range Interpretation Comments PLATELET COUNT (BEAKER) (test 116 K/CU MM 150-450 L code = 756) Veterinarian Poultry ID - HeydiNo clotSARS-CoV2/RT-PCR (Asymptomatic ONLY)2020-02-27 12:46:00 Test Item Value Reference Range Interpretation Comments SARS-COV2/RT-PCR Negative Not Detected, (test code = Negative 83904-0) SARS-COV-2 [facility] PERFORMING LAB (test code = 58461-0) ALVIN (test code = Negative result for [...] of the Act. Fact Sheet for Healthcare Providers:https://www.Taykey/sites/default/f mio/product/documents/F act_Sheet_HC_Providers_L ofq_IORQ-ZzR-3.pdf Fact Sheet for Healthcare Patients:https://www.Chirp [employer]/sites/default/fi les/product/documents/Fa ct_Sheet_Patients_Lyra_S ARS-CoV-2.pdf Performing Laboratory:[facility] [place] [id number] [place], [place] [address]ARS-COV2/RT-PCR ([facility])2020-02-27 12:46:00 Test Item Value Reference Range Interpretation Comments SARS-COV2/RT-PCR (test code = Negative Not Detected, Negative 0832878) SARS-COV-2 PERFORMING LAB [facility] (test code = 6110932) Negative result for this test determines that [...] 564(g) of the Act.Fact Sheet for Healthcare Providers:https://www.[employer].Hively/sites/default/files/product/documents/Fact_Shee p_MK_Mozxipsjv_Crja_IVSN-RjZ-9.pdfFact Sheet for Healthcare Patients:https://www.[employer].Hively/sites/default/files/product/ documents/Nwmw_Rnzgb_Dbdcoedl_Eppp_CNWQ-RzN-5.pdfPerforming Laboratory:[facility], [place] [address]FJTJ-DGICQTA METER 2020-02-27 12:12:00 Test Item Value Reference Range Interpretation Comments POC-GLUCOSE METER 90 mg/dL 70-110 : TESTED A T [facility] 6720 (GAELZOILA) (test code = [facility], 1538) [address]: Veterinarian Poultry/Techni kush ID = [id number] for SELENA BIRCH Hepatitis B surface [id number] 11:32:00 Test Item Value Reference Range Interpretation Comments HBsAg Screen (test code Nonreactive Nonreactive = 5195-3) ALVIN (test code = ALVIN) Specimen is considered negative for HBsAg. Lab Interpretation (test Normal code = 07731-4) [facility] HospitalHEPATITIS B SURFACE [id number] 11:32:00 Test Item Value Reference Range Interpretation Comments HEPATITIS B SURFACE ANTIGEN (2) Nonreactive Nonreactive (BEAKER) (test code = 2585) Specimen is considered negative for HBsAg.RAD, WRIST, 2 VIEWS, [id number] 09:19:00Reason for exam:->fall, immbolityFINAL REPORT TECHNIQUE: Frontal, oblique, and lateral views of the left wrist. INDICATION: Fall immobility. COMPARISON: None. FINDINGS:No acute fractures or dislocations.Joint spaces are within normal limits.There are atherosclerotic calcifications of the vessels. Surgical clipsproject over the distal radius.. IMPRESSION:No acute osseous abnormality. Signed: Bhavin Artis Verified Date/Time: 02/27/2020 09:19:08 Reading Location: [address] Body ReadingRoom XR wrist 2 views [id number] 09:19:00Interface, External Ris In - 02/27/2020 9:21 AM CDTFINAL REPORT TECHNIQUE: Frontal, oblique, and lateral views of the left wrist. INDICATION: Fall immobility. COMPARISON: None. FINDINGS:No acute fractures or dislocations.Joint spaces are within normal limits.There are atherosclerotic calcifications of the vessels. Surgical clips project over the distal radius.. IMPRESSION:No acute osseous abnormality. Signed: Bhavin Artis Verified Date/Time: 02/27/2020 09:19:08 Reading Location: [facility] C013Y CT Body Reading Room [facility] HospitalAntibody [id number] 08:56:00 Test Item Value Reference Range Interpretation Comments ANTIBODY ID (BEAKER) UNID IgG (test code = 2253) Antibody Consult SIGNED OUT An IgG anti body of (test code = 2479) undetermi christian specificity is detected, trans fuse crossmatch comp atible RBCs.Electronic Signature: Rosendo cyndy Cast Blieden, M.D. [facility] HospitalPotassium2020-06-27 08:30:00 Test Item Value Reference Range Interpretation Comments Potassium (test code = 5.0 meq/L 3.5-5.1 2823-3) ALVIN (test code = ALVIN) Veterinarian Poultry ID - PIAYA L Lab Interpretation (test Normal code = 39766-4) [facility] HospitalPOTASSIUM2020-06-27 08:30:00 Test Item Value Reference Range Interpretation Comments POTASSIUM (BEAKER) (test code = 5.0 meq/L 3.5-5.1 379) Veterinarian Poultry ID - PIAYA LType and screen, [id number] 08:01:00 Test Item Value Reference Range Interpretation Comments ABO/RH AUTOMATED (BEAKER) (test AB POSITIVE code = 2260) Ab Scrn (test code = 890-4) POSITIVE ECHO 2 [facility] HospitalRAD, PELVIS, 1 OR 2 [id number] 07:23:00Reason for exam:->femoral neck fxFINAL REPORT RAD, [...] ilioischial and ileoileal lines are intact. Signed: Mihaela Lisa MDReport Verified Date/Time: 02/27/2020 07:23:52 Reading Location: [address] Neuro Reading Room RAD, HIP, 2 VIEWS, [id number] 07:23:00Reason for exam:- >femoral neck fractureFINAL REPORT [...] ilioischial and ileoileal lines are intact. Signed: Mihaela Lisa Verified Date/Time: 02/27/2020 07:23:52 Reading Location: [address] Neuro Reading Room XR hip 2 views [id number] 07:23:00Interface, External Ris In - 02/27/2020 7:26 [...] ilioischial and ileoileal lines are intact. Signed: Mihaela Lisa VerifiedDate/Time: 02/27/2020 07:23:52 Reading Location: [address] Neuro Reading Room [facility] HospitalXR pelvis 1 or 2 [id number] 07:23:00Interface, External Ris In - 02/27/2020 7:26 [...] ilioischial and ileoileal lines are intact. Signed: Mihaela Lisa VerifiedDate/Time: 02/27/2020 07:23:52 Reading Location: [address] Neuro Reading Room [facility] POCT-GLUCOSE [id number] 06:26:00 Test Item Value Reference Range Interpretation Comments POC-GLUCOSE METER 72 mg/dL 70-110 : TESTED A T [facility] 6720 (BEAKER) (test code = [place], 1538) [address]: Veterinarian Poultry/Techni kush ID = [id number] for SCOOTER MAYA Comprehensive metabolic [id number] 02:44:00 Test Item Value Reference Range Interpretation Comments Protein, Total (test 9.6 6.0- 8.3 gm/dL H code = 2885-2) Albumin (test code = 4.3 g/dL 3.5-5 60910-2) Alkaline Phosphatase 85 U/L 40-150 (test code [...] Calcium (test code = 9.2 mg/dL 8.4-10.2 63070-5) AST (test code = 44 U/L 5-34 H 1920-8) ALT (test code = 36 U/L 6-55 1742-6) EGFR (test code = 7 mL/min/1.73 [place] [address]-1) NOT ACCURATE CREATININE CLEARANCE IN PREDICTING GLOMERULAR FILTRATION RATE . ESTIMATED GFR I S NOT APPLICABLE FOR DIALYSIS PATIENTS. ALVIN (test code = ALVIN) Veterinarian Poultry ID - PIAYA L Lab Interpretation Abnormal (test code = 39920-3) [facility] HospitalCOMPREHENSIVE METABOLIC [id number] 02:44:00 Test Item Value Reference Range Interpretation [...] S NOT APPLICABLE FOR DIALYSIS PATIEN TS. Veterinarian Poultry ID - PIAYA LPROTHROMBIN TIME/[id number] 02:03:00 Test Item Value Reference Range Interpretation [...] INR is2.5-3.5 for patients wiht mechanical heart valves.[id number] 01:56:00 Test Item Value Reference Range Interpretation Comments Magnesium (test code = 1.9 mg/dL 1.6-2.6 73243-8) ALVIN (test code = ALVIN) Veterinarian Poultry ID - AKSHAT L Lab Interpretation (test Normal code = 17250-8) [facility] HospitalPhosphorus2020-06-27 01:56:00 Test Item Value Reference Range Interpretation Comments Phosphorus (test code = 7.3 mg/dL 2.3-4.7 H 2777-1) ALVIN (test code = ALVIN) Veterinarian Poultry ID - AKSHAT L Lab Interpretation (test Abnormal code = 15759-4) [facility] HospitalPHOSPHORUS2020-06-27 01:56:00 Test Item Value Reference Range Interpretation Comments PHOSPHORUS (BEAKER) (test code = 7.3 mg/dL 2.3-4.7 H 604) Veterinarian Poultry ID - AKSHAT [id number] 01:56:00 Test Item Value Reference Range Interpretation Comments MAGNESIUM (BEAKER) (test code = 1.9 mg/dL 1.6-2.6 627) Veterinarian Poultry ID - AKSHAT LCBC W/PLT COUNT & AUTO [id number] 01:33:00 Test Item Value Reference Range Interpretation [...] 0-1 PERCENT (BEAKER) (test code = 2801) CT Abdomen Pelvis Wo [id number] 20:53:43Hm Interface, Radiology Results 09/12/2019 8:56 PM CSTEXAMINATION: CT ABDOMEN PELVIS WO CONTRASTCLINICAL HISTORY: 64 years Male abd pain n [...] right pleural effusion/pleural thickening and basilar volume loss.Liver: Unenhanced liver is unremarkable. No focal mass.Gallbladder/Biliary: There are small calci fied stones in the dependent portion of the [...] intervention noted in the right and left groin.SUMMARY:1.Cardiomegaly with small right pleural effusion/pleural thickening and basilar volume l oss.2.Cholelithiasis.3.Mild splenomegaly.4.Nonspecific periportal nodes and smaller retroperitoneal nodes.5.Atrophic pancreas and kidneys.6.No intestinal obstruction or evidence of inflammation.Rene WilsonTroponin, I-Stat 2019-09-12 20:46:29 Test Item Value Reference Range Interpretation [...] quired to rule out acute myocardial injury. [facility]XR Chest 2 [id number] 20:46:25Hm Interface, Radiology Results 09/12/2019 8:49 PM CSTEXAMINATION: XR CHEST 2 VWCLINICAL HISTORY: sobCOMPARISON: NoneIMPRESSION:Status post median sternotomy and valvular surgery. Atrial clip present. There is mild cardiomegaly. There is mild central vascular congestion. There is small right pleural effusion with volume loss in the right base. Lungs are otherwise clear. There is no pneumothorax. Visualized osseous structures are intact. [facility]-[id number] MethodistVenous blood gas 2019-09-12 20:39:32 Test Item Value Reference Range Interpretation Comments pH, venous, POC (test code = 7.52 7.32-7.42 H 2746-6) pCO2, venous, POC (test code = 41 45- 51 mm Hg L 2020-) pO2, venous, POC (test code = 32 25- 40 mm Hg 2705-2) Base excess, venous, POC (test 9 mmol/L -2-2 H code = 1927-3) Bicarbonate, venous, POC (test 32.9 mmol/L 21-28 H code = 72138-5) O2 saturation, venous, POC (test 68 % 40-70 code = 2711-0) Lab Interpretation (test code = Abnormal 14576-3) López MethodistLactic acid, [id number] 20:37:11 Test Item Value Reference Range Interpretation Comments Lactic acid, I-Stat (test code = 2.0 mmol/L 0.5-2.2 57410-6) [place] MethodistInfluenza [id number] 20:05:58 Test Item Value Reference Range Interpretation Comments Influenza Flue B: Specimen antigen (test positive InformationSpe cimen code = 1604) Flue A: Source: NaresSp ecimen negative Site: Left [place] [facility] Preliminary Interpretation - Not an [id number] 19:29:23Ty Nieves MD 09/13/2019 6:41 AMEC[facility] ED Preliminary Interpretation - Not an OrderPerformed by: Ty Nieves MDAuthorized by: Ty Nieves MD ECG reviewed by ED Physician in the absence of a fresh meat grader: yes Interpretation: Interpretation: non-specific Rate: ECG r ate: 96 ECG rate assessment: normal Rhythm: Rhythm: sinus rhythm Ectopy: Ectopy: none QRS: QRS axis: NormalConduction: Conduction: normal ST segments: ST segments: NormalT waves: T waves: peaked Peaked: V3, V4, V5, V6, II, III and aVFHouston MethodistAFB CULTURE + [id number] 07:33:00 Test Item Value Reference Range Interpretation Comments CULTURE (BEAKER) (test No acid-fast bacilli code = 1095) isolated in 42 days AFB SMEAR (BEAKER) No acid fast bacilli (test code = 994) seen FUNGUS CULTURE + [id number] 17:26:00 Test Item Value Reference Range Interpretation Comments [facility] (test No fungus isolated in code = 1095) 28 days FUNGUS SMEAR ([facility]) No fungi seen (test code = 1406) POCT-GLUCOSE [id number] 13:35:00 Test Item Value Reference Range Interpretation Comments POC-GLUCOSE METER 116 mg/dL 70-110 H TESTED AT [place] [address] ([facility]) (test code = [facility] Laura [facility] 1538) [address] POCT-GLUCOSE [id number] 08:54:00 Test Item Value Reference Range Interpretation Comments POC-GLUCOSE METER 99 mg/dL 70-110 TESTED AT [place] [address] ([facility]) (test code = [facility] [address] 1538) [id number] 06:34:00 Test Item Value Reference Range Interpretation Comments PARTIAL THROMBOPLASTIN TIME 46.7 seconds 22.5-36.0 H ([facility]) (test code = 760) While on warfarin.PROTHROMBIN TIME/[id number] 06:33:00 Test Item Value Reference Range Interpretation Comments PROTIME ([facility]) (test code = 26.5 seconds 11.7-14.7 H 759) INR ([facility]) (test code = 370) 2.6 [...] H (BEAKER) (test code = 413) POCT-GLUCOSE [id number] 21:38:00 Test Item Value Reference Range Interpretation Comments POC-GLUCOSE METER 192 mg/dL 70-110 H TESTED AT [facility] 6720 (BEAKER) (test code = [facility] [place] 1538) [address] POCT-GLUCOSE [id number] 13:01:00 Test Item Value Reference Range Interpretation Comments POC-GLUCOSE METER 200 mg/dL 70-110 H TESTED AT [facility] 6720 ([facility]) (test code = [place] 1538) [address] POCT-GLUCOSE [id number] 08:00:00 Test Item Value Reference Range Interpretation Comments POC-GLUCOSE METER 123 mg/dL 70-110 H TESTED AT [facility] 6720 ([facility]) (test code = [place] 1538) [address] [id number] 06:40:00 Test Item Value Reference Range Interpretation Comments PARTIAL THROMBOPLASTIN TIME 83.1 seconds 22.5-36.0 H ([facility]) (test code = 760) [id number] 05:54:00 Test Item Value Reference Range Interpretation Comments PARTIAL THROMBOPLASTIN TIME > seconds 22.5-36.0 HH ([facility]) (test code = 760) PROTHROMBIN TIME/[id number] 05:30:00 Test Item Value Reference Range Interpretation Comments PROTIME ([facility]) (test code = 24.1 seconds 11.7-14.7 H 759) INR ([facility]) (test code = 370) 2.3 [...] 40.1-51.0 L 411) MEAN CORPUSCULAR VOLUME (AKER) 106.7 fL 79.0-92.2 H (test code = [...] (BEAKER) (test code = 413) BASIC METABOLIC [id number] 05:10:00 Test Item Value Reference Range Interpretation [...] APPLICABLE FOR DIALYSIS PATIEN TS. OCCULT BLOOD, [id number] 23:46:00 Test Item Value Reference Range Interpretation Comments FECAL OCCULT BLOOD (BEAKER) (test Negative Negative code = 618) POCT-GLUCOSE [id number] 22:52:00 Test Item Value Reference Range Interpretation Comments POC-GLUCOSE METER 192 mg/dL 70-110 H TESTED AT [facility] 6720 (BEAKER) (test code = [place] 1538) [address] POCT-GLUCOSE [id number] 17:11:00 Test Item Value Reference Range Interpretation Comments POC-GLUCOSE METER 149 mg/dL 70-110 H TESTED AT [place] [address] ([facility]) (test code = [facility] 1538) [address] PROTHROMBIN [id number] 13:00:00 Test Item Value Reference Range Interpretation Comments PROTIME ([facility]) (test code = 19.9 seconds 11.7-14.7 H 759) INR ([facility]) (test code = 370) 1.8 <=5.9 RECOMMENDED COUMADIN/WARFARIN INR THERAPY RANGESSTANDARD DOSE: 2.0 - 3.0 Includes: PROPHYLAXIS forvenous thrombosis, systemic embolization; TREATMENT for venous thrombosis and/or pulmonary embolus.HIGH RISK: Target INR is 2.5-3.5 for patients with mechanical heart valves.While on warfarin.POCT-GLUCOSE METER 2019-01-04 12:14:00 Test Item Value Reference Range Interpretation Comments POC-GLUCOSE METER 134 mg/dL 70-110 H TESTED AT [place] [address] ([facility]) (test code = [facility] 1538) [address] RAD, CHEST, 1 VIEW, NON [id number] 08:02:00Reason for exam:->Post opShould this be performed [...] Bloom Verified Date/Time: 01/04/2019 08:02:18 Reading Location: [facility] C0W Consult Reading Room Electronicallysigned by: EDENILSON BLOOM M.D. on 01/04/2019 08:02 AMPOCT-GLUCOSE [id number] 07:42:00 Test Item Value Reference Range Interpretation Comments POC-GLUCOSE METER 98 mg/dL 70-110 TESTED AT [place] [address] ([facility]) (test code = [facility] [address] 1538) BASIC METABOLIC [id number] 07:28:00 Test Item Value Reference Range Interpretation [...] 150-450 code = 756) MEAN PLATELET VOLUME ([facility]) 9.1 fL 9.4-12.4 L (test code = 754) NUCLEATED RED BLOOD CELLS 1 /100 WBC 0-0 H ([facility]) (test code = 413) [id number] 06:08:00 Test Item Value Reference Range Interpretation Comments PARTIAL THROMBOPLASTIN TIME 70.6 seconds 22.5-36.0 H ([facility]) (test code = 760) [id number] 23:32:00 Test Item Value Reference Range Interpretation Comments PARTIAL THROMBOPLASTIN TIME 77.2 seconds 22.5-36.0 H (AKER) (test code = 760) POCT-GLUCOSE [id number] 21:55:00 Test Item Value Reference Range Interpretation Comments POC-GLUCOSE METER 150 mg/dL 70-110 H TESTED AT [facility] 6720 ([facility]) (test code = [facility] 1538) [address] [id number] 18:25:00 Test Item Value Reference Range Interpretation Comments PARTIAL THROMBOPLASTIN TIME 71.2 seconds 22.5-36.0 H ([facility]) (test code = 760) POCT-GLUCOSE [id number] 13:45:00 Test Item Value Reference Range Interpretation Comments POC-GLUCOSE METER 375 mg/dL 70-110 H Notified R Jun PÉREZ/TESTED ([facility]) (test code = AT [facility] [address] [place] [address]) [facility] [address] [id number] 10:26:00 Test Item Value Reference Range Interpretation Comments PARTIAL THROMBOPLASTIN TIME 94.0 seconds 22.5-36.0 H ([facility]) (test code = 760) While on warfarin.PROTHROMBIN TIME/[id number] 10:24:00 Test Item Value Reference Range Interpretation Comments PROTIME ([facility]) (test code = 19.3 seconds 11.7-14.7 H 759) INR ([facility]) (test code = 370) 1.7 <=5.9 RECOMMENDED COUMADIN/WARFARIN INR THERAPY RANGESSTANDARD DOSE: 2.0 - 3.0 Includes: PROPHYLAXIS forvenous thrombosis, systemic embolization; TREATMENT for venous thrombosis and/or pulmonary embolus.HIGH RISK: Target INR is 2.5-3.5 for patients with mechanical heart valves.While on warfarin.POCT-GLUCOSE METER 2019-01-03 08:36:00 Test Item Value Reference Range Interpretation Comments POC-GLUCOSE METER 124 mg/dL 70-110 H TESTED AT [facility] 6720 (BEAKER) (test code = [place] 1538) [address] RAD, CHEST, 1 VIEW, NON [id number] 08:19:00Reason for exam:->Post opShould this be performed [...] and mediastinum:Stable contours. Additional findings: None. Signed: Mihaela Lisa MDRepst. lukes des peres [facility] Verified Date/Time: 01/03/2019 08:19:51 Reading Location: [address] Neuro Reading Room [id number] 03:31:00 Test Item Value Reference Range Interpretation Comments PARTIAL THROMBOPLASTIN TIME 64.2 seconds 22.5-36.0 H (BEAKER) (test code = 760) BASIC METABOLIC [id number] 03:21:00 Test Item Value Reference Range Interpretation [...] H (BEAKER) (test code = 413) POCT-GLUCOSE [id number] 22:54:00 Test Item Value Reference Range Interpretation Comments POC-GLUCOSE METER 206 mg/dL 70-110 H TESTED AT [facility] 6720 ([facility]) (test code = [place] 1538) [address] [id number] 19:36:00 Test Item Value Reference Range Interpretation Comments PARTIAL THROMBOPLASTIN TIME 79.3 seconds 22.5-36.0 H (AKER) (test code = 760) POCT-GLUCOSE [id number] 17:59:00 Test Item Value Reference Range Interpretation Comments POC-GLUCOSE METER 186 mg/dL 70-110 H TESTED AT [facility] 6720 [facility] (test code = [place] 1538) [address] POCT-GLUCOSE [id number] 13:54:00 Test Item Value Reference Range Interpretation Comments POC-GLUCOSE METER 139 mg/dL 70-110 H TESTED AT [facility] 6720 [facility] (test [facility] = [place] [place] 1538) [address] POCT-GLUCOSE [id number] 13:05:00 Test Item Value Reference Range Interpretation Comments POC-GLUCOSE METER 163 mg/dL 70-110 H TESTED AT [facility] 6720 ([facility]) (test code = [place] 1538) [address] [id number] 12:49:00 Test Item Value Reference Range Interpretation Comments PARTIAL THROMBOPLASTIN TIME 64.9 seconds 22.5-36.0 H ([facility]) (test code = 760) OCCULT BLOOD, [id number] 12:31:00 Test Item Value Reference Range Interpretation Comments FECAL OCCULT BLOOD ([facility]) (test Negative Negative code = 618) RAD, CHEST, 1 VIEW, NON [id number] 10:37:00Reason for exam:->Post opShould this be performed [...] are noted. IMPRESSION: No significant change. Signed: Jori Mejiaeport Verified Date/Time: 01/02/2019 10:37:35 Reading Loc ation: ARTURO Michelle [facility]rendan Radiology Reading Room POCT-GLUCOSE [id number] 08:07:00 Test Item Value Reference Range Interpretation Comments POC-GLUCOSE METER 107 mg/dL 70-110 TESTED AT [facility] 6720 (BEAKER) (test code = [place] 1538) [address] [id number] 04:48:00 Test Item Value Reference Range Interpretation Comments PARTIAL THROMBOPLASTIN TIME 106.0 seconds 22.5-36.0 H (BEAKER) (test code = 760) While on warfarin.BASIC METABOLIC [id number] 04:48:00 Test Item Value Reference Range Interpretation [...] NOT APPLICABLE FOR DIALYSIS PATIEN TS. PROTHROMBIN [id number] 04:39:00 Test Item Value Reference Range Interpretation [...] 0-0 (BEAKER) (test code = 413) POCT-GLUCOSE [id number] 22:17:00 Test Item Value Reference Range Interpretation Comments POC-GLUCOSE METER 117 mg/dL 70-110 H TESTED AT [facility] 6720 (BEAKER) (test code = [place] 1538) [address] RAD, CHEST, 1 VIEW, NON [id number] 19:40:00Reason for exam:->Post opShould this be performed [...] change. Signed: Edenilson Bloom MDReport Verified Date/Time: 01/01/2019 19:40:01 Reading Location: [facility] B1 C013W Consult Reading Room POCT-GLUCOSE [id number] 18:22:00 Test Item Value Reference Range Interpretation Comments POC-GLUCOSE METER 159 mg/dL 70-110 H TESTED AT [place] [address] ([facility]) (test code = [facility] 1538) [address] POCT-GLUCOSE [id number] 14:12:00 Test Item Value Reference Range Interpretation Comments POC-GLUCOSE METER 135 mg/dL 70-110 H TESTED AT [place] [address] ([facility]) (test code = [facility] 1538) [address] HEPATITIS B SURFACE [id number] 11:52:00 Test Item Value Reference Range Interpretation Comments HEPATITIS B SURFACE ANTIGEN (2) Nonreactive Nonreactive (BEAKER) (test code = 2585) POCT-GLUCOSE [id number] 08:40:00 Test Item Value Reference Range Interpretation Comments POC-GLUCOSE METER 85 mg/dL 70-110 TESTED AT [place] [address] ([facility] (test code = [facility] [address] 1538) BASIC METABOLIC [id number] 04:17:00 Test Item Value Reference Range Interpretation [...] S NOT APPLICABLE FOR DIALYSIS PATIEN TS. [id number] 03:40:00 Test Item Value Reference Range Interpretation Comments PARTIAL THROMBOPLASTIN TIME 84.1 seconds 22.5-36.0 H (BEAKER) (test code = 760) While on warfarin.PROTHROMBIN TIME/[id number] 03:39:00 Test Item Value Reference Range Interpretation [...] RED BLOOD CELLS 0 /100 WBC 0-0 ([facility]) (test code = 413) POCT-GLUCOSE [id number] 22:08:00 Test Item Value Reference Range Interpretation Comments POC-GLUCOSE METER 194 mg/dL 70-110 H TESTED AT [facility] 67 ([facility]) (test code = FOSTER Paul [facility] 1538) [address] POCT-GLUCOSE [id number] 22:03:00 Test Item Value Reference Range Interpretation Comments POC-GLUCOSE METER 203 mg/dL 70-110 H TESTED AT [place] [address] ([facility]) (test code = FOSTER Paul [facility] 1538) [address] POCT-GLUCOSE [id number] 21:42:00 Test Item Value Reference Range Interpretation Comments POC-GLUCOSE METER 42 mg/dL 70-110 L TESTED AT [place] [address] ([facility]) (test code = FOSTER Paul [facility] [address] 1538) [id number] 21:35:00 Test Item Value Reference Range Interpretation Comments PARTIAL THROMBOPLASTIN TIME 80.4 seconds 22.5-36.0 H ([facility]) (test code = 760) POCT-GLUCOSE [id number] 18:03:00 Test Item Value Reference Range Interpretation Comments POC-GLUCOSE METER 144 mg/dL 70-110 H TESTED AT [place] [address] ([facility]) ([facility] 1538) [address] TISSUE [id number] 16:33:00Surgical Pathology Report Case: [id number] Authorizing Provider: Enmanuel Sharma Collected: 12/26/2018 1537 MD Liban OrderingLocation: [address] Received: 12/29/2018 0814 Service Pathologist: Brigida [...] stains. GMSImmunohistochemistry technical testing was performed at [facility], Pathology Laboratory where it was developed and [...] toperform high complexity clinical laboratory testing.CPT CODE: [id number] electronically signed byBrigida Parks MD on 12/31/2018 [...] ARE NEGATIVE Signing Pathologist Direct Phone Line: [phone] signed by Brigida Parks MD on 12/30/2018 at 6:43 PMPreliminary result electronically signed by Brigida Parks MD on 12/29/2018 at 4:54 [id number] X 2; 16868; 16110; 26892 X 2Upper endoscopy, biopsyPreoperative and postoperative diagnosis: [...] AND CMVImmunohistochemistry technical testing was performed at [facility], Pathology Laboratory where it was developed and [...] qualified toperform high complexity clinical laboratory testing.POCT-GLUCOSE [id number] 13:57:00 Test Item Value Reference Range Interpretation Comments POC-GLUCOSE METER 178 mg/dL 70-110 H TESTED AT [place] [address] ([facility]) (test code = [place] 1538) [address] [id number] 12:54:00 Test Item Value Reference Range Interpretation Comments PARTIAL THROMBOPLASTIN TIME 69.4 seconds 22.5-36.0 H ([facility]) (test code = 760) RAD, CHEST, 1 VIEW, NON [id number] 09:26:00Reason for exam:->Post opShould this be performed [...] the right mid to lower lung. Signed: Zack Christianson MDReport Verified Date/Time: 12/31/2018 09:26:31 Reading Location: [facility] Radiology Reading Room POCT-GLUCOSE [id number] 09:01:00 Test Item Value Reference Range Interpretation Comments POC-GLUCOSE METER 162 mg/dL 70-110 H TESTED AT [place] [address] ([facility]) (test code = [place] 1538) [address] BASIC METABOLIC [id number] 06:50:00 Test Item Value Reference Range Interpretation [...] NOT APPLICABLE FOR DIALYSIS PATIEN TS. PROTHROMBIN [id number] 06:38:00 Test Item Value Reference Range Interpretation Comments PROTIME (BEAKER) (test code = 19.1 seconds 11.7-14.7 H 759) INR (BEAKER) (test code = 370) 1.7 <=5.9 RECOMMENDED COUMADIN/WARFARIN INR THERAPY RANGESSTANDARD DOSE: 2.0 - 3.0 Includes: PROPHYLAXIS forvenous thrombosis, systemic embolization; TREATMENT for venous thrombosis and/or pulmonary embolus.HIGH RISK: Target INR is 2.5-3.5 for patients with mechanical heart valves.While on warfarin.[id number] 06:37:00 Test Item Value Reference Range Interpretation [...] RED BLOOD CELLS 0 /100 WBC 0-0 (AKER) (test code = 413) POCT-GLUCOSE [id number] 00:45:00 Test Item Value Reference Range Interpretation Comments POC-GLUCOSE METER 124 mg/dL 70-110 H TESTED AT [place] [address] ([facility]) (test code = [place] 1538) [address] [id number] 19:14:00 Test Item Value Reference Range Interpretation Comments PARTIAL THROMBOPLASTIN TIME 57.8 seconds 22.5-36.0 H ([facility]) (test code = 760) POCT-GLUCOSE [id number] 17:53:00 Test Item Value Reference Range Interpretation Comments POC-GLUCOSE METER 133 mg/dL 70-110 H TESTED AT [place] [address] ([facility]) (test code = [place] 1538) [address] POCT-GLUCOSE [id number] 13:19:00 Test Item Value Reference Range Interpretation Comments POC-GLUCOSE METER 147 mg/dL 70-110 H TESTED AT [place] [address] ([facility]) (test code = [place] 1538) [address] [id number] 12:43:00 Test Item Value Reference Range Interpretation Comments PARTIAL THROMBOPLASTIN TIME 57.0 seconds 22.5-36.0 H (BEAKER) (test code = 760) [id number] 10:17:00 Test Item Value Reference Range Interpretation Comments PARTIAL THROMBOPLASTIN TIME 134.5 seconds 22.5-36.0 H (BEAKER) (test code = 760) POCT-GLUCOSE [id number] 07:43:00 Test Item Value Reference Range Interpretation Comments POC-GLUCOSE METER 107 mg/dL 70-110 TESTED AT [facility] 6720 (BEAKER) (test code = [place] 1538) [address] BASIC METABOLIC [id number] 06:46:00 Test Item Value Reference Range Interpretation [...] PATIEN TS. RAD, CHEST, 1 VIEW, NON [id number] 06:25:00Reason for exam:->Post opShould this be performed [...] contours. Stable surgical changes.Additional findings: None. Signed: Mihaela Lisa MDReport Verified Date/Time: 12/30/2018 06:25:51 Reading Location: [facility] C013V Neuro Reading Room PROTHROMBIN [id number] 06:06:00 Test Item Value Reference Range Interpretation [...] RED BLOOD CELLS 0 /100 WBC 0-0 ([facility]) (test code = 413) POCT-GLUCOSE [id number] 22:19:00 Test Item Value Reference Range Interpretation Comments POC-GLUCOSE METER 179 mg/dL 70-110 H TESTED AT [place] [address] ([facility]) (test code = [place] 1538) [address] POCT-GLUCOSE [id number] 17:39:00 Test Item Value Reference Range Interpretation Comments POC-GLUCOSE METER 181 mg/dL 70-110 H TESTED AT [place] [address] ([facility]) (test code = [place] 1538) [address] POCT-GLUCOSE [id number] 13:14:00 Test Item Value Reference Range Interpretation Comments POC-GLUCOSE METER 102 mg/dL 70-110 TESTED AT [place] [address] ([facility]) (test code = FOSTER Paul [facility] 1538) [address] RAD, CHEST, 1 VIEW, NON [id number] 08:56:00Reason for exam:->Post opShould this be performed [...] MDReport Verified Date/Time: 12/29/2018 08:56:32 Reading Location: [facility] Radiology Reading Room Electronically signed by: EDENILSON BLOOM M.D.on 12/29/2018 08:56 AMPOCT-GLUCOSE [id number] 07:53:00 Test Item Value Reference Range Interpretation Comments POC-GLUCOSE METER 135 mg/dL 70-110 H TESTED AT [place] [address] ([facility]) (test code = FOSTER Paul [facility] 1538) [address] [id number] 06:45:00 Test Item Value Reference Range Interpretation Comments PARTIAL THROMBOPLASTIN TIME 83.5 seconds 22.5-36.0 H (AKER) (test code = 760) While on warfarin.PROTHROMBIN [id number] 06:44:00 Test Item Value Reference Range Interpretation [...] = 382) CO2 (BEAKER) (test 29 meq/L code = 355) BLOOD UREA NITROGEN 31 [...] 40.1-51.0 L 411) MEAN CORPUSCULAR VOLUME (AKER) 100.0 fL 79.0-92.2 H (test code = 753) MEAN CORPUSCULAR HEMOGLOBIN 32.7 pg 25.7-32.2 H (AKER) (test code = 751) MEAN CORPUSCULAR HEMOGLOBIN CONC 32.7 GM/DL 32.3-36.5 (AKER) (test code = 752) RED CELL DISTRIBUTION WIDTH 15.6 % 11.6-14.4 H (AKER) (test code = 412) PLATELET COUNT ([facility]) (test 131 K/CU MM 150-450 L code = 756) MEAN PLATELET VOLUME ([facility]) 9.1 fL 9.4-12.4 L (test code = 754) NUCLEATED RED BLOOD CELLS 0 /100 WBC 0-0 ([facility]) (test code = 413) [id number] 00:01:00 Test Item Value Reference Range Interpretation Comments PARTIAL THROMBOPLASTIN TIME 78.5 seconds 22.5-36.0 H ([facility]) (test code = 760) POCT-GLUCOSE [id number] 21:26:00 Test Item Value Reference Range Interpretation Comments POC-GLUCOSE METER 139 mg/dL 70-110 H TESTED AT [place] [address] ([facility]) (test code = [place] 1538) [address] POCT-GLUCOSE [id number] 17:58:00 Test Item Value Reference Range Interpretation Comments POC-GLUCOSE METER 146 mg/dL 70-110 H TESTED AT [place] [address] ([facility]) (test code = [place] 1538) [address] [id number] 17:16:00 Test Item Value Reference Range Interpretation Comments PARTIAL THROMBOPLASTIN TIME 34.5 seconds 22.5-36.0 ([facility]) (test code = 760) Prior to initiating heparinPOCT-GLUCOSE [id number] 12:54:00 Test Item Value Reference Range Interpretation Comments POC-GLUCOSE METER 133 mg/dL 70-110 H TESTED AT [place] [address] ([facility]) (test code = [place] 1538) [address] RAD, CHEST, 1 VIEW, NON [id number] 08:06:00Reason for exam:->Post opShould this be performed at the bedside?->YesFINAL REPORT Chest one view. Clinical history: Post op Comparison: 12/27/2018 Discussion: A frontal chest is provided. Cardiomediastinal contours are unchanged. Lines and tubesare in stable position. Unchanged right-sided pleural-parenchymal opacities. Left lung is grossly clear. Vessels do not appear engorged. No pneumothorax. Signed: Letty Cheryeport Verified Date/Time: 12/28/2018 08:06:07 Reading Location: [facility] C013V Neuro Reading Room BASIC METABOLIC [id number] 06:52:00 Test Item Value Reference Range Interpretation [...] NOT APPLICABLE FOR DIALYSIS PATIEN TS. PROTHROMBIN [id number] 06:31:00 Test Item Value Reference Range Interpretation [...] 0-0 (BEAKER) (test code = 413) POCT-GLUCOSE [id number] 21:41:00 Test Item Value Reference Range Interpretation Comments POC-GLUCOSE METER 163 mg/dL 70-110 H TESTED AT [facility] 6720 ([facility]) (test code = [place] 1538) [address] POCT-GLUCOSE [id number] 17:23:00 Test Item Value Reference Range Interpretation Comments POC-GLUCOSE METER 119 mg/dL 70-110 H TESTED AT [facility] 6720 ([facility]) (test code = [place] 1538) [address] RAD, CHEST, 1 VIEW, NON [id number] 14:49:00Reason for exam:->Post opShould this be performed [...] MDReport Verified Date/Time: 12/27/2018 14:49:48 Reading Location: [facility] B1 C013X Ortho Consult Reading Room ANG, NON-TUNNELED CATH >5 Y.O. [id number] 14:17:00Reason for exam:->Central line placement, poor access, [...] guide wire was advanced centrally. A 7 Swazi 20 cm triple lumen catheter was advanced [...] venous catheter terminating in the right atrium.Signed: Aditi Sykes MDReport Verified Date/Time: 12/27/2018 14:17:02 Reading Location: [facility] P048 Angio Body Reading Room [id number] 13:44:00 Test Item Value Reference Range Interpretation Comments PARTIAL THROMBOPLASTIN TIME 44.3 seconds 22.5-36.0 H (BEAKER) (test code = 760) Prior to initiating heparinPOCT-GLUCOSE [id number] 13:27:00 Test Item Value Reference Range Interpretation Comments POC-GLUCOSE METER 127 mg/dL 70-110 H TESTED AT [place] [address] ([facility]) (test code = [facility] 1538) [address] POCT-GLUCOSE [id number] 08:58:00 Test Item Value Reference Range Interpretation Comments POC-GLUCOSE METER 79 mg/dL 70-110 TESTED AT [place] [address] ([facility]) (test code = [facility] [address] 1538) BASIC METABOLIC [id number] 07:09:00 Test Item Value Reference Range Interpretation [...] NOT APPLICABLE FOR DIALYSIS PATIEN TS. PROTHROMBIN [id number] 06:52:00 Test Item Value Reference Range Interpretation [...] WBC 0-0 (test code = 413) POCT-GLUCOSE [id number] 23:54:00 Test Item Value Reference Range Interpretation Comments POC-GLUCOSE METER 73 mg/dL 70-110 TESTED AT [facility] 6720 (BEAKER) (test code = [place] [address] 1538) POCT-GLUCOSE [id number] 16:02:00 Test Item Value Reference Range Interpretation Comments POC-GLUCOSE METER 108 mg/dL 70-110 TESTED AT [facility] 6720 (BEAKER) (test code = FOSTER Paul [facility] 1538) [address] POCT-GLUCOSE [id number] 15:24:00 Test Item Value Reference Range Interpretation Comments POC-GLUCOSE METER 74 mg/dL 70-110 TESTED AT [facility] 6720 [facility] (test code = FOSTER Paul [facility] [address] 1538) POCT-GLUCOSE [id number] 10:29:00 Test Item Value Reference Range Interpretation Comments POC-GLUCOSE METER 88 mg/dL 70-110 TESTED AT [facility] 6720 ([facility] (test code = FOSTER Paul [facility] [address] 1538) RAD, CHEST, 1 VIEW, NON [id number] 07:33:00Reason for exam:->Post opShould this be performed [...] are noted. IMPRESSION: No significant change. Signed: Jori Mejia MDReport Verified Date/Time: 12/26/2018 07:33:38 Reading Location: [facility] Radiology Reading Room BASIC METABOLIC [id number] 06:42:00 Test Item Value Reference Range Interpretation [...] 0-0 H (test code = 413) PROTHROMBIN [id number] 05:44:00 Test Item Value Reference Range Interpretation Comments PROTIME (BEAKER) (test code = 24.4 seconds 11.7-14.7 H 759) INR (BEAKER) (test code = 370) 2.2 <=5.9 RECOMMENDED COUMADIN/WARFARIN INR THERAPY RANGESSTANDARD DOSE: 2.0 - 3.0 Includes: PROPHYLAXIS forvenous thrombosis, systemic embolization; TREATMENT for venous thrombosis and/or pulmonary embolus.HIGH RISK: Target INR is 2.5-3.5 for patients with mechanical heart valves.POCT-GLUCOSE [id number] 00:06:00 Test Item Value Reference Range Interpretation Comments POC-GLUCOSE METER 88 mg/dL 70-110 TESTED AT [place] [address] ([facility]) (test code = [facility] [address] 1538) POCT-GLUCOSE [id number] 19:06:00 Test Item Value Reference Range Interpretation Comments POC-GLUCOSE METER 121 mg/dL 70-110 H TESTED AT [place] [address] ([facility]) (test code = [facility] 1538) [address] PROTHROMBIN [id number] 16:10:00 Test Item Value Reference Range Interpretation Comments PROTIME (BEAKER) (test code = 30.1 seconds 11.7-14.7 H 759) INR (BEAKER) (test code = 370) 2.9 <=5.9 RECOMMENDED COUMADIN/WARFARIN INR THERAPY RANGESSTANDARD DOSE: 2.0 - 3.0 Includes: PROPHYLAXIS forvenous thrombosis, systemic embolization; TREATMENT for venous thrombosis and/or pulmonary embolus.HIGH RISK: Target INR is 2.5-3.5 for patients with mechanical heart valves.BASIC METABOLIC [id number] 16:10:00 Test Item Value Reference Range Interpretation [...] S NOT APPLICABLE FOR DIALYSIS PATIEN TS. [id number] 16:09:00 Test Item Value Reference Range Interpretation [...] 0-0 H (test code = 413) POCT-GLUCOSE [id number] 08:03:00 Test Item Value Reference Range Interpretation Comments POC-GLUCOSE METER 89 mg/dL 70-110 TESTED AT [facility] 6720 (BEAKER) (test code = [place] [address] 1538) RAD, CHEST, 1 VIEW, NON [id number] 07:46:00Reason for exam:->Post opShould this be performed at the bedside?->YesFINAL REPORT Chest one view. Clinical history: Post op Comparison: 12/24/2018 Discussion: A frontal chest is provided. Cardiomediastinal contours are unchanged. Stable appearance of pleural-parenchymal opacity at the right mid to lower lung. There is a tiny right apical pneumothorax, unchanged. Probable trace left effusion. Signed: Letty Chery Verified Date/Time: 07:46:01 Reading Location: [facility] Radiology Reading Room RAD, ABDOMEN/KUB, 1 VIEW [id number] 07:25:00Reason for exam:->abdominal distentionShould this be performed at the bedside?->YesFINAL REPORT Abdomen one view Comparison: January 18, 2018 Reason for exam: abd ominal distention Findings: Bowel gas pattern is nonobstructive, nonspecific. No free air is identified. No suspicious calcification. No acute bony abnormality. Liver appears enlarged. There is pleuralparenchymal opacity in the mid to lower right lung. Signed: Letty Chery Verified Date/Time: 12/25/2018 07:25:40 Reading Location: [facility] Radiology Reading Room POCT-GLUCOSE [id number] 22:06:00 Test Item Value Reference Range Interpretation Comments POC-GLUCOSE METER 102 mg/dL 70-110 TESTED AT [place] [address] ([facility]) (test code = FOSTER Paul [facility] 1538) [address] POCT-GLUCOSE [id number] 18:44:00 Test Item Value Reference Range Interpretation Comments POC-GLUCOSE METER 100 mg/dL 70-110 TESTED AT [place] [address] ([facility]) (test code = MARIA GTAMMI Paul [facility] 1538) [address] POCT-GLUCOSE [id number] 14:54:00 Test Item Value Reference Range Interpretation Comments POC-GLUCOSE METER 103 mg/dL 70-110 TESTED AT [facility] 6720 (BEAKER) (test code = FOSTER Paul [facility] 1538) [address] [id number] 08:07:00 Test Item Value Reference Range Interpretation Comments FERRITIN (BEAKER) (test code = 2044 ng/mL 5-275 H 361) POCT-GLUCOSE [id number] 07:57:00 Test Item Value Reference Range Interpretation Comments POC-GLUCOSE METER 76 mg/dL 70-110 TESTED AT [facility] 6720 (BEAKER) (test code = FOSTER Paul [facility] [address] 1538) RAD, CHEST, 1 VIEW, NON [id number] 07:57:00Reason for exam:->Post opShould this be performed [...] MDReport Verified Date/Time: 12/24/2018 07:57:06 Reading Location: [facility] Radiology Reading Room CBC (HEMOGRAM ONLY) 2018-12-24 [...] H (test code = 413) BASIC METABOLIC [id number] 07:14:00 Test Item Value Reference Range Interpretation [...] S NOT APPLICABLE FOR DIALYSIS PATIEN TS. [id number] 07:08:00 Test Item Value Reference Range Interpretation [...] % 20-55 (test code = 2590) PROTHROMBIN [id number] 07:05:00 Test Item Value Reference Range Interpretation Comments PROTIME ([facility]) (test code = 38.7 seconds 11.7-14.7 H 759) INR ([facility]) (test code = 370) 3.9 <=5.9 RECOMMENDED COUMADIN/WARFARIN INR THERAPY RANGESSTANDARD DOSE: 2.0 - 3.0 Includes: PROPHYLAXIS forvenous thrombosis, systemic embolization; TREATMENT for venous thrombosis and/or pulmonary embolus.HIGH RISK: Target INR is 2.5-3.5 for patients with mechanical heart valves.POCT-GLUCOSE [id number] 00:26:00 Test Item Value Reference Range Interpretation Comments POC-GLUCOSE METER 86 mg/dL 70-110 TESTED AT [place] [address] ([facility]) (test code = FOSTER Paul [facility] [address] 1538) POCT-GLUCOSE [id number] 00:26:00 Test Item Value Reference Range Interpretation Comments POC-GLUCOSE METER 137 mg/dL 70-110 H TESTED AT [place] [address] ([facility]) (test code = MARIA GTAMMI Paul [facility] 1538) [address] POCT-GLUCOSE [id number] 16:07:00 Test Item Value Reference Range Interpretation Comments POC-GLUCOSE METER 72 mg/dL 70-110 TESTED AT [place] [address] ([facility]) (test code = FOSTER Paul [facility] [address] 1538) POCT-GLUCOSE [id number] 16:07:00 Test Item Value Reference Range Interpretation Comments POC-GLUCOSE METER 61 mg/dL 70-110 L TESTED AT [place] [address] ([facility]) (test code = MARIA Gin[employer]arvo Laura [facility] [address] 1538) POCT-GLUCOSE [id number] 11:27:00 Test Item Value Reference Range Interpretation Comments POC-GLUCOSE METER 82 mg/dL 70-110 TESTED AT [place] [address] ([facility]) (test code = [employer] [facility] [address] 1538) POCT-GLUCOSE [id number] 10:32:00 Test Item Value Reference Range Interpretation Comments POC-GLUCOSE METER 43 mg/dL 70-110 L TESTED AT [place] [address] ([facility]) (test code = [employer] [facility] [address] 1538) BASIC METABOLIC [id number] 07:28:00 Test Item Value Reference Range Interpretation [...] S NOT APPLICABLE FOR DIALYSIS PATIEN TS. [id number] 07:24:00 Test Item Value Reference Range Interpretation Comments MAGNESIUM (BEAKER) 2.0 mg/dL 1.6-2.6 Specimen slightly (test code = 627) hemolyzed [id number] 07:24:00 Test Item Value Reference Range Interpretation Comments PHOSPHORUS (BEAKER) 4.4 mg/dL 2.3-4.7 Specimen slightly (test code = 604) hemolyzed PROTHROMBIN [id number] 07:20:00 Test Item Value Reference Range Interpretation [...] = 413) RAD, CHEST, 1 VIEW, NON [id number] 04:22:00Reason for exam:->Post opShould this be performed [...] MDReport Verified Date/Time: 12/23/2018 04:22:43 Reading Location: [address] Body Reading Room POCT-GLUCOSE [id number] 03:01:00 Test Item Value Reference Range Interpretation Comments POC-GLUCOSE METER 85 mg/dL 70-110 TESTED AT [facility] 6720 (BEAKER) (test code = [place] [address] 1538) BASIC METABOLIC [id number] 18:52:00 Test Item Value Reference Range Interpretation [...] H (BEAKER) (test code = 413) ANAEROBIC [id number] 17:00:00 Test Item Value Reference Range Interpretation Comments CULTURE (BEAKER) (test No anaerobes isolated code = 1095) RAD, CHEST, 1 VIEW, NON [id number] 07:44:00Reason for exam:->Post opShould this be performed [...] that she would tell the doctor. Signed: Geoffrey Arteaga [facility] Verified Date/Time: 12/22/2018 07:44:12 Reading Location: [facility] Radiology Reading Room PROTHROMBIN TIME/[id number] 04:31:00 Test Item Value Reference Range Interpretation Comments PROTIME (BEAKER) (test code = 63.0 seconds 11.7-14.7 H 759) INR (BEAKER) (test code = 370) 7.6 <=5.9 RECOMMENDED COUMADIN/WARFARIN INR THERAPY RANGESSTANDARD DOSE: 2.0 - 3.0 Includes: PROPHYLAXIS forvenous thrombosis, systemic embolization; TREATMENT for venous thrombosis and/or pulmonary embolus.HIGH RISK: Target INR is 2.5-3.5 for patients with mechanical heart valves.While on warfarin.POCT-GLUCOSE METER 2018-12-21 22:29:00 Test Item Value Reference Range Interpretation Comments POC-GLUCOSE METER 141 mg/dL 70-110 H TESTED AT [facility] 6720 ([facility]) (test code = [place] 1538) [address] POCT-GLUCOSE [id number] 13:22:00 Test Item Value Reference Range Interpretation Comments POC-GLUCOSE METER 100 mg/dL 70-110 TESTED AT [facility] 6720 ([facility]) (test code = [place] Paul [facility] 1538) [address] RAD, CHEST, 1 VIEW, NON [id number] 08:01:00Reason for exam:->Post opShould this be performed [...] contours. Stable surgical changes.Additional findings: None. Signed: Mihaela Lisa Verified Date/Time: 12/21/2018 08:01:46 Reading Location: [address] Neuro Reading Room PROTHROMBIN TIME/[id number] 05:30:00 Test Item Value Reference Range Interpretation Comments PROTIME (JARROD) (test code = 39.1 seconds 11.7-14.7 H 759) INR (JARROD) (test code = 370) 4.0 <=5.9 RECOMMENDED COUMADIN/WARFARIN INR THERAPY RANGESSTANDARD DOSE: 2.0 - 3.0 Includes: PROPHYLAXIS forvenous thrombosis, systemic embolization; TREATMENT for venous thrombosis and/or pulmonary embolus.HIGH RISK: Target INR is 2.5-3.5 for patients with mechanical heart valves.While on warfarin.POCT-GLUCOSE METER 2018-12-20 22:10:00 Test Item Value Reference Range Interpretation Comments POC-GLUCOSE METER 98 mg/dL 70-110 TESTED AT [place] [address] (BEAKER) (test code = [place] Paul [facility] [address] 1538) POCT-GLUCOSE [id number] 17:40:00 Test Item Value Reference Range Interpretation Comments POC-GLUCOSE METER 91 mg/dL 70-110 TESTED AT [place] [address] ([facility] (test code = MARIA GSC Laura [facility] [address] 1538) POCT-GLUCOSE [id number] 13:13:00 Test Item Value Reference Range Interpretation Comments POC-GLUCOSE METER 73 mg/dL 70-110 TESTED AT [place] [address] ([facility]) (test code = [facility] Laura [facility] [address] 1538) SURGICALLY OBTAINED CULTURE + GRAM [id number] 08:41:00 Test Item Value Reference Range Interpretation Comments CULTURE (BEAKER) (test No growth code = 1095) GRAM STAIN RESULT No White blood cells (BEAKER) (test code = seen 1123) GRAM STAIN RESULT No organisms seen (BEAKER) (test code = 77726) RAD, CHEST, 1 VIEW, NON [id number] 08:20:00Reason for exam:->Post opShould this be performed [...] contours. Stable surgical changes.Additional findings: None. Signed: Mihaela Lisa Verified Date/Time: 12/20/2018 08:20:58 Reading Location: [facility] C013V Neuro Reading Room BASIC METABOLIC [id number] 08:09:00 Test Item Value Reference Range Interpretation [...] S NOT APPLICABLE FOR DIALYSIS PATIEN TS. [id number] 08:00:00 Test Item Value Reference Range Interpretation Comments PHOSPHORUS (BEAKER) (test code = 4.5 mg/dL 2.3-4.7 604) CALCIUM, [id number] 07:20:00 Test Item Value Reference Range Interpretation Comments CALCIUM IONIZED (BEAKER) (test 1.04 mmol/L 1.12-1.27 L code = 698) PH, BLOOD (BEAKER) (test code = 7.35 1810) PROTHROMBIN [id number] 07:04:00 Test Item Value Reference Range Interpretation [...] 0-0 (BEAKER) (test code = 413) POCT-GLUCOSE [id number] 22:00:00 Test Item Value Reference Range Interpretation Comments POC-GLUCOSE METER 188 mg/dL 70-110 H TESTED AT [facility] 6720 (BEAKER) (test code = [place] 1538) [address] TISSUE [id number] 18:15:00Surgical Pathology Report Case: [id number] Authorizing Provider: Nigel Vargas, Collected: 12/17/2018 Hernando50 Ordering Location: [facility] Received: 12/17/2018 1129 PERIOPERATIVE SERVICES Pathologist: Kwan Perla MD Specimen: Pleural, Right, RIGHT PLEURAL PEEL PLEURA, RIGHT, DECORTICATION- MILD CHRONIC INFLAMMATION AND GRANULATION TISSUE- ORGANIZING BLOOD CLOTS- NO MALIGNANT CELLS IDENTIFIED Signing Pathologist Direct Phone Line: [phone] signed by Kwan Perla MD on 12/19/2018 at 6:15 PMCorrelation with microbiology cultures is recommended.[id number] effusion and other conditions classified elsewhereRight pleural peelThe specimen is received in a formalin-filled container labeled with the patient's information and labeled "right pleural peel" and consists of multiple fragments of porter-red, dusky, firm tissue measuring 6 x 5 x 0.4 cm in aggregate. Artificial Flowers Supervisor sections are submitted in A1-A3. CG/ew Performed.POCT-GLUCOSE [id number] 17:11:00 Test Item Value Reference Range Interpretation Comments POC-GLUCOSE METER 126 mg/dL 70-110 H TESTED AT [place] [address] ([facility]) (test code = [facility] 1538) [address] POCT-GLUCOSE [id number] 12:57:00 Test Item Value Reference Range Interpretation Comments POC-GLUCOSE METER 143 mg/dL 70-110 H TESTED AT [place] [address] ([facility]) (test code = [facility] 1538) [address] POCT-GLUCOSE [id number] 07:27:00 Test Item Value Reference Range Interpretation Comments POC-GLUCOSE METER 141 mg/dL 70-110 H TESTED AT [place] [address] ([facility]) (test code = [facility] 1538) [address] CALCIUM, [id number] 06:29:00 Test Item Value Reference Range Interpretation Comments CALCIUM IONIZED ([facility]) (test 1.00 mmol/L 1.12-1.27 L code = 698) PH, BLOOD ([facility]) (test code = 7.45 1810) RAD, CHEST, 1 VIEW, NON [id number] 04:54:00Reason for exam:->Post opShould this be performed [...] There are median sternotomy wires. Signed: Raz [facility] Verified Date/Time: 2018 04:54:49 Reading Location: [facility] B1 C013Y CT Body Reading Room BASIC METABOLIC [id number] 04:19:00 Test Item Value Reference Range Interpretation [...] S NOT APPLICABLE FOR DIALYSIS PATIEN TS. [id number] 04:16:00 Test Item Value Reference Range Interpretation Comments PHOSPHORUS (BEAKER) (test code = 3.4 mg/dL 2.3-4.7 604) PROTHROMBIN [id number] 04:06:00 Test Item Value Reference Range Interpretation [...] 0-0 (BEAKER) (test code = 413) POCT-GLUCOSE [id number] 22:11:00 Test Item Value Reference Range Interpretation Comments POC-GLUCOSE METER 149 mg/dL 70-110 H TESTED AT [place] [address] ([facility]) (test code = [facility] 1538) [address] POCT-GLUCOSE [id number] 17:52:00 Test Item Value Reference Range Interpretation Comments POC-GLUCOSE METER 122 mg/dL 70-110 H TESTED AT [place] [address] ([facility]) (test code = [facility] 1538) [address] POCT-GLUCOSE [id number] 14:26:00 Test Item Value Reference Range Interpretation Comments POC-GLUCOSE METER 98 mg/dL 70-110 TESTED AT [place] [address] ([facility]) (test code = [facility] [address] 1538) HEMOGLOBIN AND [id number] 12:47:00 Test Item Value Reference Range Interpretation Comments HEMOGLOBIN (BEAKER) (test code = 9.2 GM/DL 13.7-17.5 L 410) HEMATOCRIT (BEAKER) (test code = 28.3 % 40.1-51.0 L 411) POCT-GLUCOSE [id number] 09:38:00 Test Item Value Reference Range Interpretation Comments POC-GLUCOSE METER 73 mg/dL 70-110 TESTED AT [facility] 6720 (BEAKER) (test code = [place] [facility] [address] 1538) PROTEIN ELECTROPHORESIS, [id number] 09:21:00 Test Item Value Reference Range Interpretation [...] of chronic inflammation. No monoclonal bands detected. [id number] Amanda De Jesus MD (BEAKER) (test code = (electronic signature) 2616) PROTEIN TOTAL SERUM, 7.5 gm/dL 6.0-8.3 SPEP (BEAKER) (test code = 2660) RAD, CHEST, 1 VIEW, NON [id number] 06:47:00Reason for exam:->Post opShould this be performed [...] chest wall and lower neck. Signed: Raz [place] Verified Date/Time: 12/18/2018 06:47:21 Reading Location: [facility] B1 C013Y CT Body Reading Room [id number] 06:20:00 Test Item Value Reference Range Interpretation Comments MAGNESIUM (BEAKER) (test code = 2.2 mg/dL 1.6-2.6 627) CALCIUM, [id number] 06:00:00 Test Item Value Reference Range Interpretation Comments CALCIUM IONIZED (BEAKER) (test 1.09 mmol/L 1.12-1.27 L code = 698) PH, BLOOD (BEAKER) (test code = 7.34 1810) BASIC METABOLIC [id number] 05:07:00 Test Item Value Reference Range Interpretation [...] S NOT APPLICABLE FOR DIALYSIS PATIEN TS. [id number] 04:54:00 Test Item Value Reference Range Interpretation Comments PHOSPHORUS (BEAKER) (test code = 6.3 mg/dL 2.3-4.7 H 604) HEPATIC FUNCTION [id number] 04:54:00 Test Item Value Reference Range Interpretation [...] (test code = 23 U/L 6-55 347) [id number] 04:51:00 Test Item Value Reference Range Interpretation Comments PARTIAL THROMBOPLASTIN TIME 38.6 seconds 22.5-36.0 H (BEAKER) (test code = 760) PROTHROMBIN [id number] 04:50:00 Test Item Value Reference Range Interpretation Comments PROTIME (BEAKER) (test code = 16.0 seconds 11.7-14.7 H 759) INR (BEAKER) (test code = 370) 1.3 <=5.9 RECOMMENDED COUMADIN/WARFARIN INR THERAPY RANGESSTANDARD DOSE: 2.0 - 3.0 Includes: PROPHYLAXIS forvenous thrombosis, systemic embolization; TREATMENT for venous thrombosis and/or pulmonary embolus.HIGH RISK: Target INR is 2.5-3.5 for patients with mechanical heart valves.[id number] 04:50:00 Test Item Value Reference Range Interpretation Comments FIBRINOGEN LEVEL (BEAKER) (test 494 mg/dl 225-434 H code = 658) PLATELET [id number] 04:38:00 Test Item Value Reference Range Interpretation [...] WBC 0-0 (BEAKER) (test code = 413) [id number] 18:48:00 Test Item Value Reference Range Interpretation Comments MAGNESIUM (BEAKER) (test code = 2.4 mg/dL 1.6-2.6 627) POCT-GLUCOSE [id number] 18:42:00 Test Item Value Reference Range Interpretation Comments POC-GLUCOSE METER 121 mg/dL 70-110 H TESTED AT [facility] 6720 (BEAKER) (test code = [place] 1538) [address] HEMOGLOBIN AND [id number] 18:37:00 Test Item Value Reference Range Interpretation Comments HEMOGLOBIN (BEAKER) (test code = 10.0 GM/DL 13.7-17.5 L 410) HEMATOCRIT (BEAKER) (test code = 31.3 % 40.1-51.0 L 411) RAD, CHEST, 1 VIEW, NON [id number] 13:28:00Reason for exam:->post opShould this be performed [...] MDReport Verified Date/Time: 12/17/2018 13:28:23 Reading Location: [facility] METABOLIC [id number] 13:03:00 Test Item Value Reference Range Interpretation [...] S NOT APPLICABLE FOR DIALYSIS PATIEN TS. [id number] 12:53:00 Test Item Value Reference Range Interpretation Comments PHOSPHORUS (BEAKER) (test code = 4.3 mg/dL 2.3-4.7 604) [id number] 12:53:00 Test Item Value Reference Range Interpretation Comments MAGNESIUM (BEAKER) (test code = 1.5 mg/dL 1.6-2.6 L 627) LACTIC ACID, [id number] 12:50:00 Test Item Value Reference Range Interpretation Comments LACTATE BLOOD ARTERIAL (2) 0.9 mmol/L 0.5-2.2 (BEAKER) (test code = 2874) CBC W/PLT COUNT & AUTO [id number] 12:47:00 Test Item Value Reference Range Interpretation [...] PERCENT (BEAKER) (test code = 2801) CALCIUM, [id number] 12:26:00 Test Item Value Reference Range Interpretation Comments CALCIUM IONIZED (BEAKER) (test 1.07 mmol/L 1.12-1.27 L code = 698) PH, BLOOD (BEAKER) (test code = 7.38 1810) BLOOD GAS, [id number] 12:26:00 Test Item Value Reference Range Interpretation [...] (test code = 1819) 40.0 % CALCIUM, [id number] 10:25:00 Test Item Value Reference Range Interpretation Comments CALCIUM IONIZED (BEAKER) (test 1.09 mmol/L 1.12-1.27 L code = 698) PH, BLOOD (BEAKER) (test code = 7.45 1810) BLOOD GAS, [id number] 10:22:00 Test Item Value Reference Range Interpretation [...] code = 1819) 96.0 % SODIUM NA-STAT [id number] 10:22:00 Test Item Value Reference Range Interpretation Comments SODIUM (BEAKER) (test code = 381) 133 meq/L 135-148 L GLUCOSE-STAT [id number] 10:22:00 Test Item Value Reference Range Interpretation Comments GLUCOSE RANDOM (BEAKER) (test code 116 mg/dL 70-110 H = 652) HGB/HCT (H&H) - STAT [id number] 10:22:00 Test Item Value Reference Range Interpretation Comments HEMOGLOBIN (BEAKER) (test code = 8.9 g/dL 13.0-16.8 L 410) HEMATOCRIT (BEAKER) (test code = 26.0 % 40.0-50.0 L 411) POTASSIUM-STAT [id number] 10:20:00 Test Item Value Reference Range Interpretation Comments POTASSIUM (BEAKER) (test code = 4.0 meq/L 3.6-5.5 379) HEMOGLOBIN [id number] 09:33:00 Test Item Value Reference Range Interpretation Comments HEMOGLOBIN A1C (BEAKER) (test code = 5.9 % 4.3-6.1 368) BLOOD GAS, [id number] 09:27:00 Test Item Value Reference Range Interpretation [...] code = 1819) 100.0 % SODIUM NA-STAT [id number] 09:27:00 Test Item Value Reference Range Interpretation Comments SODIUM (BEAKER) (test code = 381) 133 meq/L 135-148 L HGB/HCT (H&H) - STAT [id number] 09:27:00 Test Item Value Reference Range Interpretation Comments HEMOGLOBIN (BEAKER) (test code = 9.4 g/dL 13.0-16.8 L 410) HEMATOCRIT (BEAKER) (test code = 28.0 % 40.0-50.0 L 411) GLUCOSE-STAT [id number] 09:26:00 Test Item Value Reference Range Interpretation Comments GLUCOSE RANDOM (BEAKER) (test code = 97 mg/dL 70-110 652) POTASSIUM-STAT [id number] 09:26:00 Test Item Value Reference Range Interpretation Comments POTASSIUM (BEAKER) (test code = 3.9 meq/L 3.6-5.5 379) CALCIUM, [id number] 09:26:00 Test Item Value Reference Range Interpretation Comments CALCIUM IONIZED (BEAKER) (test 1.17 mmol/L 1.12-1.27 code = 698) PH, BLOOD (BEAKER) (test code = 7.44 1810) BLOOD GAS, [id number] 08:32:00 Test Item Value Reference Range Interpretation [...] code = 1819) 96.0 % SODIUM NA-STAT [id number] 08:32:00 Test Item Value Reference Range Interpretation Comments SODIUM (BEAKER) (test code = 381) 133 meq/L 135-148 L GLUCOSE-STAT [id number] 08:32:00 Test Item Value Reference Range Interpretation Comments GLUCOSE RANDOM (BEAKER) (test code 113 mg/dL 70-110 H = 652) HGB/HCT (H&H) - STAT [id number] 08:32:00 Test Item Value Reference Range Interpretation Comments HEMOGLOBIN (BEAKER) (test code = 9.9 g/dL 13.0-16.8 L 410) HEMATOCRIT (BEAKER) (test code = 29.0 % 40.0-50.0 L 411) CALCIUM, [id number] 08:31:00 Test Item Value Reference Range Interpretation Comments CALCIUM IONIZED (BEAKER) (test 1.05 mmol/L 1.12-1.27 L code = 698) PH, BLOOD (BEAKER) (test code = 7.49 1810) POTASSIUM-STAT [id number] 08:29:00 Test Item Value Reference Range Interpretation Comments POTASSIUM (BEAKER) (test code = 3.6 meq/L 3.6-5.5 379) POCT-GLUCOSE [id number] 06:20:00 Test Item Value Reference Range Interpretation Comments POC-GLUCOSE METER 99 mg/dL 70-110 TESTED AT [facility] 6720 (BEAKER) (test code = [place] [address] 1538) [id number] 05:05:00 Test Item Value Reference Range Interpretation Comments PARTIAL THROMBOPLASTIN TIME 75.6 seconds 22.5-36.0 H (BEAKER) (test code = 760) LIPID [id number] 05:04:00 Test Item Value Reference Range Interpretation [...] Borderline 130-159 High 160-189 Very High >=190PROTHROMBIN [id number] 05:03:00 Test Item Value Reference Range Interpretation Comments PROTIME (BEAKER) (test code = 15.4 seconds 11.7-14.7 H 759) INR (BEAKER) (test code = 370) 1.2 <=5.9 RECOMMENDED COUMADIN/WARFARIN INR THERAPY RANGESSTANDARD DOSE: 2.0 - 3.0 Includes: PROPHYLAXIS forvenous thrombosis, systemic embolization; TREATMENT for venous thrombosis and/or pulmonary embolus.HIGH RISK: Target INR is 2.5-3.5 for patients with mechanical heart valves.POCT-GLUCOSE [id number] 21:17:00 Test Item Value Reference Range Interpretation Comments POC-GLUCOSE METER 223 mg/dL 70-110 H TESTED AT [facility] 6720 ([facility] (test code = [place] 1538) [address] COMPREHENSIVE METABOLIC [id number] 18:57:00 Test Item Value Reference Range Interpretation [...] S NOT APPLICABLE FOR DIALYSIS PATIEN TS. [id number] 18:46:00 Test Item Value Reference Range Interpretation Comments MAGNESIUM (BEAKER) (test code = 1.8 mg/dL 1.6-2.6 627) CBC W/PLT COUNT & AUTO [id number] 18:10:00 Test Item Value Reference Range Interpretation [...] PERCENT (BEAKER) (test code = 2801) POCT-GLUCOSE [id number] 17:34:00 Test Item Value Reference Range Interpretation Comments POC-GLUCOSE METER 169 mg/dL 70-110 H TESTED AT [place] [address] ([facility]) (test code = FOST[place] Paul [facility] 1538) [address] HEPARIN [id number] 13:40:00 Test Item Value Reference Range Interpretation Comments HEPARIN ANTIBODY ([facility]) (test code Negative Negative = 646) HEPARIN ANTIBODY OD ([facility]) (test 0.105 <0.400 code = 2659) 4T TOTAL SCORE ([facility]) (test code = 4 8016) Probability of HIT based on scoring system: 6-8 = High probability; 4-5 = intermediate probability;0-3 = low probabilityPOCT-GLUCOSE [id number] 12:51:00 Test Item Value Reference Range Interpretation Comments POC-GLUCOSE METER 66 mg/dL 70-110 L Ayshaied Laura Barahona MD/TESTED AT ([facility]) (test code = [place] [address] [place] 1538) [facility] 7[address] 0 POCT-GLUCOSE [id number] 07:54:00 Test Item Value Reference Range Interpretation Comments POC-GLUCOSE METER 75 mg/dL 70-110 TESTED AT [place] [address] ([facility]) (test code = FOST[place] Paul [facility] [address] 1538) [id number] 04:21:00 Test Item Value Reference Range Interpretation Comments PROTIME ([facility]) (test code = 15.4 seconds 11.7-14.7 H 759) INR ([facility]) (test code = 370) 1.2 <=5.9 PARTIAL THROMBOPLASTIN TIME 74.0 seconds 22.5-36.0 H ([facility]) (test code = 760) RECOMMENDED COUMADIN/WARFARIN INR THERAPY RANGESSTANDARD DOSE: 2.0 - 3.0 Includes: PROPHYLAXIS forvenous thrombosis, systemic embolization; TREATMENT for venous thrombosis and/or pulmonary embolus.HIGH RISK: Target INR is 2.5-3.5 for patients with mechanical heart valves.[id number] 04:20:00 Test Item Value Reference Range Interpretation Comments FIBRINOGEN LEVEL ([facility]) (test 525 mg/dl 225-434 H code = 658) POCT-GLUCOSE [id number] 21:25:00 Test Item Value Reference Range Interpretation Comments POC-GLUCOSE METER 129 mg/dL 70-110 H TESTED AT [place] [address] ([facility]) (test code = [facility] 1538) [address] [id number] 18:23:00 Test Item Value Reference Range Interpretation Comments PARTIAL THROMBOPLASTIN TIME 72.0 seconds 22.5-36.0 H ([facility]) (test code = 760) POCT-GLUCOSE [id number] 16:20:00 Test Item Value Reference Range Interpretation Comments POC-GLUCOSE METER 142 mg/dL 70-110 H TESTED AT [place] [address] ([facility]) (test code = [facility] 1538) [address] POCT-GLUCOSE [id number] 13:05:00 Test Item Value Reference Range Interpretation Comments POC-GLUCOSE METER 86 mg/dL 70-110 TESTED AT [place] [address] ([facility]) (test code = [facility] [address] 1538) [id number] 11:19:00 Test Item Value Reference Range Interpretation Comments PARTIAL THROMBOPLASTIN TIME 72.3 seconds 22.5-36.0 H ([facility]) (test code = 760) POCT-GLUCOSE [id number] 07:56:00 Test Item Value Reference Range Interpretation Comments POC-GLUCOSE METER 87 mg/dL 70-110 TESTED AT [facility] 6720 (BEAKER) (test code = [place] [address] 1538) [id number] 03:13:00 Test Item Value Reference Range Interpretation Comments PARTIAL THROMBOPLASTIN TIME 97.1 seconds 22.5-36.0 H (BEAKER) (test code = 760) PROTHROMBIN [id number] 03:11:00 Test Item Value Reference Range Interpretation [...] WBC 0-0 (test code = 413) POCT-GLUCOSE [id number] 21:26:00 Test Item Value Reference Range Interpretation Comments POC-GLUCOSE METER 121 mg/dL 70-110 H TESTED AT [place] [address] ([facility]) (test code = [place] 1538) [address] [id number] 19:05:00 Test Item Value Reference Range Interpretation Comments PARTIAL THROMBOPLASTIN TIME 64.0 seconds 22.5-36.0 H ([facility]) (test code = 760) POCT-GLUCOSE [id number] 17:24:00 Test Item Value Reference Range Interpretation Comments POC-GLUCOSE METER 131 mg/dL 70-110 H TESTED AT [place] [address] ([facility]) (test code = [place] 1538) [address] [id number] 13:32:00 Test Item Value Reference Range Interpretation Comments PARTIAL THROMBOPLASTIN TIME 81.4 seconds 22.5-36.0 H ([facility]) (test code = 760) POCT-GLUCOSE [id number] 12:32:00 Test Item Value Reference Range Interpretation Comments POC-GLUCOSE METER 102 mg/dL 70-110 TESTED AT [place] [address] ([facility]) (test code = [place] 1538) [address] POCT-GLUCOSE [id number] 07:07:00 Test Item Value Reference Range Interpretation Comments POC-GLUCOSE METER 113 mg/dL 70-110 H TESTED AT [place] [address] ([facility]) (test code = MARIA GTAMMI Laura [place] 1538) [address] [id number] 05:47:00 Test Item Value Reference Range Interpretation Comments PARTIAL THROMBOPLASTIN TIME 91.8 seconds 22.5-36.0 H ([facility]) (test code = 760) POCT-GLUCOSE [id number] 21:27:00 Test Item Value Reference Range Interpretation Comments POC-GLUCOSE METER 90 mg/dL 70-110 TESTED AT [place] [address] ([facility]) (test code = [place] [address] 1538) POCT-GLUCOSE [id number] 17:46:00 Test Item Value Reference Range Interpretation Comments POC-GLUCOSE METER 175 mg/dL 70-110 H TESTED AT [place] [address] ([facility]) (test code = [place] [facility] 1538) [id number] POCT-GLUCOSE [id number] 17:30:00 Test Item Value Reference Range Interpretation Comments POC-GLUCOSE METER 84 mg/dL 70-110 TESTED AT [place] [address] ([facility]) (test code = [place] [facility] [id number] 1538) [id number] 13:20:00 Test Item Value Reference Range Interpretation Comments PARTIAL THROMBOPLASTIN TIME 68.4 seconds 22.5-36.0 H (BEAKER) (test code = 760) BASIC METABOLIC [id number] 10:36:00 Test Item Value Reference Range Interpretation [...] NOT APPLICABLE FOR DIALYSIS PATIEN TS. POCT-GLUCOSE [id number] 07:43:00 Test Item Value Reference Range Interpretation Comments POC-GLUCOSE METER 84 mg/dL 70-110 TESTED AT [place] [address] ([facility]) (test code = [facility] [place] [facility] [id number] 1538) [id number] 06:52:00 Test Item Value Reference Range Interpretation Comments PARTIAL THROMBOPLASTIN TIME 76.5 seconds 22.5-36.0 H (BEAKER) (test code = 760) PROTHROMBIN [id number] 06:51:00 Test Item Value Reference Range Interpretation [...] 0-1 PERCENT (BEAKER) (test code = 2801) [id number] 00:11:00 Test Item Value Reference Range Interpretation Comments PARTIAL THROMBOPLASTIN TIME 59.7 seconds 22.5-36.0 H ([facility]) (test code = 760) POCT-GLUCOSE [id number] 21:33:00 Test Item Value Reference Range Interpretation Comments POC-GLUCOSE METER 113 mg/dL 70-110 H TESTED AT [place] [address] ([facility]) (test code = F[place]ER [place] 1538) [address] POCT-GLUCOSE [id number] 18:08:00 Test Item Value Reference Range Interpretation Comments POC-GLUCOSE METER 128 mg/dL 70-110 H TESTED AT [place] [address] ([facility]) (test code = [place] 1538) [address] [id number] 16:51:00 Test Item Value Reference Range Interpretation Comments PARTIAL THROMBOPLASTIN TIME 71.6 seconds 22.5-36.0 H ([facility]) (test code = 760) POCT-GLUCOSE [id number] 12:39:00 Test Item Value Reference Range Interpretation Comments POC-GLUCOSE METER 124 mg/dL 70-110 H TESTED AT [place] [address] ([facility]) (test code = [place] 1538) [address] [id number] 09:07:00 Test Item Value Reference Range Interpretation Comments PARTIAL THROMBOPLASTIN TIME 96.6 seconds 22.5-36.0 H ([facility]) (test code = 760) POCT-GLUCOSE [id number] 07:48:00 Test Item Value Reference Range Interpretation Comments POC-GLUCOSE METER 105 mg/dL 70-110 TESTED AT [facility] 6720 (BEAKER) (test code = [place] 1538) [address] BASIC METABOLIC [id number] 01:54:00 Test Item Value Reference Range Interpretation [...] S NOT APPLICABLE FOR DIALYSIS PATIEN TS. [id number] 01:37:00 Test Item Value Reference Range Interpretation Comments PARTIAL THROMBOPLASTIN TIME 53.4 seconds 22.5-36.0 H (BEAKER) (test code = 760) PROTHROMBIN [id number] 01:36:00 Test Item Value Reference Range Interpretation [...] PERCENT (BEAKER) (test code = 2801) POCT-GLUCOSE [id number] 21:57:00 Test Item Value Reference Range Interpretation Comments POC-GLUCOSE METER 165 mg/dL 70-110 H TESTED AT [place] [address] ([facility]) (test code = FOSTER [place] 1538) [address] [id number] 18:46:00 Test Item Value Reference Range Interpretation Comments PARTIAL THROMBOPLASTIN TIME 39.0 seconds 22.5-36.0 H ([facility]) (test code = 760) POCT-GLUCOSE [id number] 17:51:00 Test Item Value Reference Range Interpretation Comments POC-GLUCOSE METER 157 mg/dL 70-110 H TESTED AT [place] [address] ([facility]) (test code = [place]OST[place] 1538) [address] POCT-GLUCOSE [id number] 17:09:00 Test Item Value Reference Range Interpretation Comments POC-GLUCOSE METER 162 mg/dL 70-110 H TESTED AT [place] [address] ([facility]) (test code = [place]OSTER [place] 1538) [address] [id number] 16:07:00 Test Item Value Reference Range Interpretation Comments PARTIAL THROMBOPLASTIN TIME 117.0 seconds 22.5-36.0 H ([facility]) (test code = 760) POCT-GLUCOSE [id number] 13:28:00 Test Item Value Reference Range Interpretation Comments POC-GLUCOSE METER 88 mg/dL 70-110 TESTED AT [place] [address] ([facility]) (test code = [place] [address] 1538) [id number] 09:17:00 Test Item Value Reference Range Interpretation Comments PARTIAL THROMBOPLASTIN TIME 71.7 seconds 22.5-36.0 H ([facility]) (test code = 760) POCT-GLUCOSE [id number] 08:07:00 Test Item Value Reference Range Interpretation Comments POC-GLUCOSE METER 137 mg/dL 70-110 H TESTED AT [place] [address] ([facility]) (test code = FOSTER Paul [place] 1538) [address] [id number] 02:27:00 Test Item Value Reference Range Interpretation Comments PARTIAL THROMBOPLASTIN TIME 62.4 seconds 22.5-36.0 H ([facility]) (test code = 760) PROTHROMBIN [id number] 02:26:00 Test Item Value Reference Range Interpretation Comments PROTIME (BEAKER) (test code = 20.0 seconds 11.7-14.7 H 759) INR (BEAKER) (test code = 370) 1.7 <=5.9 RECOMMENDED COUMADIN/WARFARIN INR THERAPY RANGESSTANDARD DOSE: 2.0 - 3.0 Includes: PROPHYLAXIS forvenous thrombosis, systemic embolization; TREATMENT for venous thrombosis and/or pulmonary embolus.HIGH RISK: Target INR is 2.5-3.5 for patients with mechanical heart valves.BASIC METABOLIC [id number] 02:02:00 Test Item Value Reference Range Interpretation [...] PATIEN TS. CBC W/PLT COUNT & AUTO [id number] 01:42:00 Test Item Value Reference Range Interpretation [...] PERCENT (BEAKER) (test code = 2801) POCT-GLUCOSE [id number] 21:12:00 Test Item Value Reference Range Interpretation Comments POC-GLUCOSE METER 199 mg/dL 70-110 H TESTED AT [facility] 6720 ([facility]) (test code = FOSTER Paul [facility] 1538) [address] POCT-GLUCOSE [id number] 17:39:00 Test Item Value Reference Range Interpretation Comments POC-GLUCOSE METER 145 mg/dL 70-110 H TESTED AT [facility] 6720 ([facility] (test code = [facility] 1538) [address] [id number] 17:33:00 Test Item Value Reference Range Interpretation Comments PARTIAL THROMBOPLASTIN TIME 47.3 seconds 22.5-36.0 H (BEAKER) (test code = 760) POCT-GLUCOSE [id number] 12:53:00 Test Item Value Reference Range Interpretation Comments POC-GLUCOSE METER 203 mg/dL 70-110 H TESTED AT [facility] 6720 ([facility]) (test code = [facility] 1538) [address] POCT-GLUCOSE [id number] 08:28:00 Test Item Value Reference Range Interpretation Comments POC-GLUCOSE METER 98 mg/dL 70-110 TESTED AT [place] [address] ([facility]) (test code = [facility] [address] 1538) BASIC METABOLIC [id number] 05:52:00 Test Item Value Reference Range Interpretation [...] NOT APPLICABLE FOR DIALYSIS PATIEN TS. PROTHROMBIN [id number] 05:51:00 Test Item Value Reference Range Interpretation [...] PERCENT (BEAKER) (test code = 2801) POCT-GLUCOSE [id number] 20:54:00 Test Item Value Reference Range Interpretation Comments POC-GLUCOSE METER 126 mg/dL 70-110 H TESTED AT [place] [address] ([facility]) (test code = [facility] 1538) [address] POCT-GLUCOSE [id number] 18:47:00 Test Item Value Reference Range Interpretation Comments POC-GLUCOSE METER 70 mg/dL 70-110 TESTED AT [place] [address] ([facility]) (test code = [facility] [address] 1538) POCT-GLUCOSE [id number] 13:25:00 Test Item Value Reference Range Interpretation Comments POC-GLUCOSE METER 120 mg/dL 70-110 H TESTED AT [place] [address] ([facility]) (test code = [facility] 1538) [address] POCT-GLUCOSE [id number] 09:32:00 Test Item Value Reference Range Interpretation Comments POC-GLUCOSE METER 104 mg/dL 70-110 TESTED AT [place] [address] ([facility]) (test code = [facility] 1538) [address] BASIC METABOLIC [id number] 05:59:00 Test Item Value Reference Range Interpretation [...] NOT APPLICABLE FOR DIALYSIS PATIEN TS. PROTHROMBIN [id number] 05:20:00 Test Item Value Reference Range Interpretation [...] PERCENT (BEAKER) (test code = 2801) POCT-GLUCOSE [id number] 21:14:00 Test Item Value Reference Range Interpretation Comments POC-GLUCOSE METER 200 mg/dL 70-110 H TESTED AT [place] [address] ([facility]) (test code = FOSTER Paul [facility] 1538) [address] POCT-GLUCOSE [id number] 17:34:00 Test Item Value Reference Range Interpretation Comments POC-GLUCOSE METER 143 mg/dL 70-110 H TESTED AT [place] [address] ([facility]) (test code = FOSTER Paul [facility] 1538) [address] POCT-GLUCOSE [id number] 12:04:00 Test Item Value Reference Range Interpretation Comments POC-GLUCOSE METER 160 mg/dL 70-110 H TESTED AT [place] [address] ([facility]) ([facility] = [facility] [place] 1538) [address] POCT-GLUCOSE [id number] 08:08:00 Test Item Value Reference Range Interpretation Comments POC-GLUCOSE METER 154 mg/dL 70-110 H TESTED AT [place] [id number] ([facility]) (test code = FOSTER Paul [place] 1538) [address] BASIC METABOLIC [id number] 06:33:00 Test Item Value Reference Range Interpretation [...] GFR I S NOT APPLICABLE FOR DIALYSIS PATIRUBÉN JEAN. [id number] 06:01:00 Test Item Value Reference Range Interpretation Comments PARTIAL THROMBOPLASTIN TIME 117.2 seconds 22.5-36.0 H (BEAKER) (test code = 760) PROTHROMBIN [id number] 05:56:00 Test Item Value Reference Range Interpretation [...] PERCENT (BEAKER) (test code = 2801) POCT-GLUCOSE [id number] 21:37:00 Test Item Value Reference Range Interpretation Comments POC-GLUCOSE METER 121 mg/dL 70-110 H TESTED AT [facility] 6720 (BEAKER) (test code = [place] 1538) [address] POCT-GLUCOSE [id number] 19:01:00 Test Item Value Reference Range Interpretation Comments POC-GLUCOSE METER 191 mg/dL 70-110 H TESTED AT [facility] 6720 (BEAKER) (test code = [place] 1538) [address] [id number] 18:31:00 Test Item Value Reference Range Interpretation Comments PARTIAL THROMBOPLASTIN TIME 86.2 seconds 22.5-36.0 H (BEAKER) (test code = 760) POCT-GLUCOSE [id number] 13:05:00 Test Item Value Reference Range Interpretation Comments POC-GLUCOSE METER 130 mg/dL 70-110 H TESTED AT [facility] 6720 (BEAKER) (test code = FOSTER Paul [facility] 1538) [address] RAD, CHEST, 1 VIEW, NON [id number] 12:22:00Reason for exam:->pleural effusionsShould this be performed [...] MDReport Verified Date/Time: 12/07/2018 12:22:50 Reading Location: [address] Neuro Reading Room [id number] 11:39:00 Test Item Value Reference Range Interpretation Comments PARTIAL THROMBOPLASTIN TIME 100.1 seconds 22.5-36.0 H (BEAKER) (test code = 760) BODY FLUID CULTURE + GRAM [id number] 10:13:00 Test Item Value Reference Range Interpretation Comments CULTURE (BEAKER) (test No growth code = 1095) GRAM STAIN RESULT <1+ White blood cells (BEAKER) (test code = seen 1123) GRAM STAIN RESULT No organisms seen (BEAKER) (test code = 68935) POCT-GLUCOSE [id number] 08:51:00 Test Item Value Reference Range Interpretation Comments POC-GLUCOSE METER 90 mg/dL 70-110 TESTED AT [facility] 6720 (BEAKER) (test code = [place] [address] 1538) BASIC METABOLIC [id number] 07:31:00 Test Item Value Reference Range Interpretation [...] S NOT APPLICABLE FOR DIALYSIS PATIEN TS. [id number] 05:21:00 Test Item Value Reference Range Interpretation Comments PARTIAL THROMBOPLASTIN TIME 104.0 seconds 22.5-36.0 H (BEAKER) (test code = 760) PROTHROMBIN [id number] 04:50:00 Test Item Value Reference Range Interpretation [...] 0-1 PERCENT (BEAKER) (test code = 2801) [id number] 20:33:00 Test Item Value Reference Range Interpretation Comments PARTIAL THROMBOPLASTIN TIME 87.6 seconds 22.5-36.0 H (BEAKER) (test code = 760) POCT-GLUCOSE [id number] 19:30:00 Test Item Value Reference Range Interpretation Comments POC-GLUCOSE METER 112 mg/dL 70-110 H TESTED AT [facility] 6720 (BEAKER) (test code = [facility] 1538) [address] [id number] 13:55:00 Test Item Value Reference Range Interpretation Comments PARTIAL THROMBOPLASTIN TIME 85.9 seconds 22.5-36.0 H (BEAKER) (test code = 760) POCT-GLUCOSE [id number] 09:12:00 Test Item Value Reference Range Interpretation Comments POC-GLUCOSE METER 112 mg/dL 70-110 H TESTED AT [facility] 6720 (BEAKER) (test code = [facility] 1538) [address] BASIC METABOLIC [id number] 08:53:00 Test Item Value Reference Range Interpretation [...] S NOT APPLICABLE FOR DIALYSIS PATIEN TS. [id number] 06:04:00 Test Item Value Reference Range Interpretation Comments PARTIAL THROMBOPLASTIN TIME 105.5 seconds 22.5-36.0 H (BEAKER) (test code = 760) PROTHROMBIN TIME/[id number] 05:44:00 Test Item Value Reference Range Interpretation [...] (test code = 2801) CT, CHEST, WITHOUT [id number] 03:17:00FINAL REPORT EXAM: CT of the chest, [...] left pleural effusion with associated compressive atelectasis. Cjxxi-jb-amsadmio loculated right pleural effusion with pleural thickening [...] to follow up is recommendedCardiomegaly. Signed: Raz Tayloreport Verified Date/Time: 12/06/2018 03:17:03 Reading Location: [facility] C013Y CT Body Reading Room POCT-GLUCOSE [id number] 21:22:00 Test Item Value Reference Range Interpretation Comments POC-GLUCOSE METER 171 mg/dL 70-110 H TESTED AT [place] [address] ([facility]) (test code = [facility] 1538) [address] POCT-GLUCOSE [id number] 17:58:00 Test Item Value Reference Range Interpretation Comments POC-GLUCOSE METER 128 mg/dL 70-110 H TESTED AT [place] [address] ([facility]) (test code = [facility] 1538) 9[address] POCT-GLUCOSE [id number] 13:24:00 Test Item Value Reference Range Interpretation Comments POC-GLUCOSE METER 129 mg/dL 70-110 H TESTED AT [place] [address] ([facility]) (test code = [facility] 1538) [address] LACTATE DEHYDROGENASE (LDH)2018-12-05 13:14:00 Test Item Value Reference Range Interpretation Comments LACTATE DEHYDROGENASE ([facility]) (test 291 U/L 125-220 H code = 635) [id number] 13:10:00 Test Item Value Reference Range Interpretation Comments PARTIAL THROMBOPLASTIN TIME 91.7 seconds 22.5-36.0 H ([facility]) (test code = 760) POCT-GLUCOSE [id number] 08:19:00 Test Item Value Reference Range Interpretation Comments POC-GLUCOSE METER 106 mg/dL 70-110 TESTED AT [place] [address] ([facility]) (test code = [facility] 1538) [address] BASIC METABOLIC [id number] 07:05:00 Test Item Value Reference Range Interpretation Comments SODIUM ([facility]) 137 meq/L 136-145 (test code = 381) [...] S NOT APPLICABLE FOR DIALYSIS PATIEN TS. [id number] 06:32:00 Test Item Value Reference Range Interpretation [...] 2.5-3.5 for patients with mechanical heart valves.PROTHROMBIN TIME/[id number] 06:30:00 Test Item Value Reference Range Interpretation [...] 0-1 PERCENT (BEAKER) (test code = 2801) [id number] 00:40:00 Test Item Value Reference Range Interpretation Comments PARTIAL THROMBOPLASTIN TIME 63.1 seconds 22.5-36.0 H (BEAKER) (test code = 760) POCT-GLUCOSE [id number] 00:12:00 Test Item Value Reference Range Interpretation Comments POC-GLUCOSE METER 124 mg/dL 70-110 H TESTED AT [facility] 6720 (BEAKER) (test code = [place] 1538) [address] HEPATITIS B SURFACE [id number] 22:54:00 Test Item Value Reference Range Interpretation Comments HEPATITIS B SURFACE ANTIGEN (2) Nonreactive Nonreactive (BEAKER) (test code = 2585) For chronic HD patients, draw HBsAg with each admission then every 30 days.BODY FLUID CELL COUNT WITH [id number] 20:34:00 Test Item Value Reference Range Interpretation Comments APPEARANCE FLUID (BEAKER) (test Cloudy Clear A code = 510) COLOR FLUID (BEAKER) (test code Brown Colorless, Straw A = 511) RBC FLUID (BEAKER) (test code = 76276 /cu mm <=1 H 513) ADJUSTED WBC [...] code = 2873) LACTATE DEHYDROGENASE (LDH), BODY [id number] 19:43:00 Test Item Value Reference Range Interpretation [...] local 1% lidocaine anesthesia was administered.A 4 Swazi catheter was advanced into the largest pocket of the septated pleural effusion and 300 ccof bloody fluid was removed. The catheter was removed without immediate complication. Samples were sent for analysis. IMPRESSION:Uncomplicated ultrasound-guided right thoracentesis with 300 cc fluid removed. Signed: Raimundo Kim MDReport Verified Date/Time: 12/04/2018 18:00:50 Reading Location: [address] Ultrasound Reading Room RAD, CHEST, 1 VIEW, NON [id number] 17:23:00Reason for exam:->s/p right thoracentesisShould this be [...] MDReport Verified Date/Time: 12/04/2018 17:23:06 [facility] C. DIFFICILE GDH [id number] 10:01:00 Test Item Value Reference Range Interpretation Comments CDT TOXIN (test code Negative Negative = [id number]) CDT GDH ANTIGEN Positive Negative A C. difficile present but (test code = toxin not detec jayla. [id number]) Indicates colon ization with non-toxige ron strain [...] [facility] Microbiology Lab prior to clinical use.[id number] 09:39:00 Test Item Value Reference Range Interpretation Comments PARTIAL THROMBOPLASTIN TIME 79.4 seconds 22.5-36.0 H (BEAKER) (test code = 760) OCCULT BLOOD, [id number] 05:59:00 Test Item Value Reference Range Interpretation Comments FECAL OCCULT BLOOD (BEAKER) (test Negative Negative code = 618) BASIC METABOLIC [id number] 02:50:00 Test Item Value Reference Range Interpretation [...] S NOT APPLICABLE FOR DIALYSIS PATIEN TS. [id number] 02:50:00 Test Item Value Reference Range Interpretation Comments PARTIAL THROMBOPLASTIN TIME 35.3 seconds 22.5-36.0 (BEAKER) (test code = 760) Prior to initiating heparinPROTHROMBIN TIME/[id number] 02:49:00 Test Item Value Reference Range Interpretation [...] acute neurological disease, and persistent tachyarrhythmia.HEPATIC FUNCTION [id number] 02:43:00 Test Item Value Reference Range Interpretation [...] 6-55 347) CBC W/PLT COUNT & AUTO [id number] 02:21:00 Test Item Value Reference Range Interpretation [...] 0-1 H PERCENT (BEAKER) (test code = 2806) POCT-GLUCOSE [id number] 21:22:00 Test Item Value Reference Range Interpretation Comments POC-GLUCOSE METER 192 mg/dL 70-110 H TESTED AT [facility] 6720 (JARROD) (test code = [place] 1538) [address] TROPONIN [id number] 17:09:00 Test Item Value Reference Range Interpretation Comments TROPONIN I (JARROD) (test code = 0.10 ng/mL 0.00-0.03 H [...] and persistent tachyarrhythmia.RAD, CHEST, 1 VIEW, NON [id number] 15:36:00Reason for exam:->SHORTNESS OF BREATHShould this be performed at the bedside?->YesFINAL REPORT AP chest HISTORY: Shortness of breath. COMPARISON: 11/03/2017. IMPRESSION: Cardiomegaly. Mild interstitial edema. Right effusion and adjacent atelectasis. No pneumothorax. Signed: [facility] Verified Date/Time: 12/03/2018 15:36:19 Reading Location: [address] Radiology Reading Room TROPONIN [id number] 14:48:00 Test Item Value Reference Range Interpretation Comments TROPONIN I (JARROD) (test code = 0.10 ng/mL 0.00-0.03 H [...] (BEAKER) (test code = 700) BASIC METABOLIC [id number] 14:40:00 Test Item Value Reference Range Interpretation [...] S NOT APPLICABLE FOR DIALYSIS PATIEN TS. [id number] 14:34:00 Test Item Value Reference Range Interpretation [...] (test code = 2801) RAD, CHEST, 2 [id number] 15:24:00Reason for Exam:->chronic Diastolic heart FailureFINAL REPORT [...] MDReport Verified Date/Time: 11/03/2018 15:24:42 Reading Location: [address] Radiology Reading Room MISCELLANEOUS LAB [id number] 08:22:00 Test Item Value Reference Range Interpretation Comments SCAN RESULT (test code = 1172390) PROTHROMBIN [id number] 08:37:00 Test Item Value Reference Range Interpretation Comments PROTIME (BEAKER) (test code = 24.8 seconds 11.7-14.7 H 759) INR [facility] (test code = 370) 2.2 <=5.9 RECOMMENDED COUMADIN/WARFARIN INR THERAPY RANGESSTANDARD DOSE: 2.0 - 3.0 Includes: PROPHYLAXIS forvenous thrombosis, systemic embolization; TREATMENT for venous thrombosis and/or pulmonary embolus.HIGH RISK: Target INR is 2.5-3.5 for patients with mechanical heart valves.POCT-GLUCOSE [id number] 08:10:00 Test Item Value Reference Range Interpretation Comments POC-GLUCOSE METER 89 mg/dL 70-110 TESTED AT [facility] 6720 (BEAKER) (test code = [place] [address] 1538) BASIC METABOLIC [id number] 06:29:00 Test Item Value Reference Range Interpretation [...] S NOT APPLICABLE FOR DIALYSIS PATIEN TS. [id number] 06:28:00 Test Item Value Reference Range Interpretation Comments MAGNESIUM (BEAKER) (test code = 1.8 mg/dL 1.6-2.6 627) [id number] 06:14:00 Test Item Value Reference Range Interpretation Comments PARTIAL THROMBOPLASTIN TIME 64.7 seconds 22.5-36.0 H (BEAKER) (test code = 760) CBC W/PLT COUNT & AUTO [id number] 05:58:00 Test Item Value Reference Range Interpretation [...] PERCENT (BEAKER) (test code = 2801) POCT-GLUCOSE [id number] 21:14:00 Test Item Value Reference Range Interpretation Comments POC-GLUCOSE METER 135 mg/dL 70-110 H TESTED AT [place] [address] ([facility]) ([facility] = [facility] 1538) [address] [id number] 19:36:00 Test Item Value Reference Range Interpretation Comments PARTIAL THROMBOPLASTIN TIME 88.6 seconds 22.5-36.0 H ([facility]) (test code = 760) POCT-GLUCOSE [id number] 18:27:00 Test Item Value Reference Range Interpretation Comments POC-GLUCOSE METER 88 mg/dL 70-110 TESTED AT [place] [address] ([facility]) (test code = [facility] Laura [facility] [address] 1538) POCT-GLUCOSE [id number] 12:05:00 Test Item Value Reference Range Interpretation Comments POC-GLUCOSE METER 92 mg/dL 70-110 TESTED AT [facility] 67 ([facility]) (test code = FOSTER Paul [facility] [address] 1538) [id number] 11:46:00 Test Item Value Reference Range Interpretation Comments PARTIAL THROMBOPLASTIN TIME 74.3 seconds 22.5-36.0 H (AKER) (test code = 760) POCT-GLUCOSE [id number] 10:36:00 Test Item Value Reference Range Interpretation Comments POC-GLUCOSE METER 101 mg/dL 70-110 TESTED AT [place] [address] ([facility]) (test code = FOSTER Paul [facility] 1538) [address] POCT-GLUCOSE [id number] 07:10:00 Test Item Value Reference Range Interpretation Comments POC-GLUCOSE METER 92 mg/dL 70-110 TESTED AT [place] [address] ([facility]) (test code = FOSTER Paul [facility] [address] 1538) PROTHROMBIN [id number] 01:41:00 Test Item Value Reference Range Interpretation Comments PROTIME (BEAKER) (test code = 22.8 seconds 11.7-14.7 H 759) INR ([facility]) (test code = 370) 2.0 <=5.9 RECOMMENDED COUMADIN/WARFARIN INR THERAPY RANGESSTANDARD DOSE: 2.0 - 3.0 Includes: PROPHYLAXIS forvenous thrombosis, systemic embolization; TREATMENT for venous thrombosis and/or pulmonary embolus.HIGH RISK: Target INR is 2.5-3.5 for patients with mechanical heart valves.While on warfarin.[id number] 01:41:00 Test Item Value Reference Range Interpretation Comments PARTIAL THROMBOPLASTIN TIME 52.3 seconds 22.5-36.0 H (BEAKER) (test code = 760) While on warfarin.BASIC METABOLIC [id number] 01:37:00 Test Item Value Reference Range Interpretation [...] S NOT APPLICABLE FOR DIALYSIS PATIEN TS. [id number] 01:32:00 Test Item Value Reference Range Interpretation Comments MAGNESIUM (BEAKER) (test code = 1.8 mg/dL 1.6-2.6 627) CBC W/PLT COUNT & AUTO [id number] 01:18:00 Test Item Value Reference Range Interpretation [...] 0-1 PERCENT (BEAKER) (test code = 2801) [id number] 23:23:00 Test Item Value Reference Range Interpretation Comments PARTIAL THROMBOPLASTIN TIME 125.2 seconds 22.5-36.0 H (BEAKER) (test code = 760) POCT-GLUCOSE [id number] 21:19:00 Test Item Value Reference Range Interpretation Comments POC-GLUCOSE METER 165 mg/dL 70-110 H TESTED AT [place] [address] ([facility]) (test code = [facility] 1538) [address] POCT-GLUCOSE [id number] 18:34:00 Test Item Value Reference Range Interpretation Comments POC-GLUCOSE METER 92 mg/dL 70-110 TESTED AT [place] [address] ([facility]) (test code = [facility] [address] 1538) [id number] 17:17:00 Test Item Value Reference Range Interpretation Comments PARTIAL THROMBOPLASTIN TIME 75.2 seconds 22.5-36.0 H (BEAKER) (test code = 760) POCT-GLUCOSE [id number] 12:48:00 Test Item Value Reference Range Interpretation Comments POC-GLUCOSE METER 105 mg/dL 70-110 TESTED AT [facility] ([facility]) (test code = [facility] 1538) [address] RAD, CHEST, 1 VIEW, NON [id number] 11:00:00Reason for exam:->eval right effusionShould this be performed at the bedside?->YesFINAL REPORT Comparison: 08/15/2018 TECHNIQUE: Single view of the chest FINDINGS: Small to moderate right pleural effusion is stable. Small left pleural effusion may be slightly increased. Vascular congestion seen. No other significant change. Signed: Kyle Rome MDReport Verified Date/Time: 08/18/2018 11:00:36 Reading Location: [facility] Radiology Reading Room Electronicallysigned by: KYLE ROME M.D. on 08/18/2018 11:00 [id number] 09:48:00 Test Item Value Reference Range Interpretation Comments PARTIAL THROMBOPLASTIN TIME 48.8 seconds 22.5-36.0 H (BEAKER) (test code = 760) POCT-GLUCOSE [id number] 07:37:00 Test Item Value Reference Range Interpretation Comments POC-GLUCOSE METER 96 mg/dL 70-110 TESTED AT [facility] 6720 (BEAKER) (test code = [facility] [address] 1538) BASIC METABOLIC [id number] 02:24:00 Test Item Value Reference Range Interpretation [...] S NOT APPLICABLE FOR DIALYSIS PATIEN TS. [id number] 02:22:00 Test Item Value Reference Range Interpretation Comments MAGNESIUM (BEAKER) (test code = 1.7 mg/dL 1.6-2.6 627) [id number] 02:15:00 Test Item Value Reference Range Interpretation Comments PARTIAL THROMBOPLASTIN TIME 98.9 seconds 22.5-36.0 H (BEAKER) (test code = 760) PROTHROMBIN TIME/[id number] 02:13:00 Test Item Value Reference Range Interpretation [...] PERCENT (BEAKER) (test code = 2801) POCT-GLUCOSE [id number] 21:51:00 Test Item Value Reference Range Interpretation Comments POC-GLUCOSE METER 98 mg/dL 70-110 TESTED AT [place] [address] ([facility] (test code = [facility] [address] 1538) [id number] 18:51:00 Test Item Value Reference Range Interpretation Comments PARTIAL THROMBOPLASTIN TIME 56.1 seconds 22.5-36.0 H (BEAKER) (test code = 760) [id number] 17:06:00 Test Item Value Reference Range Interpretation Comments PARTIAL THROMBOPLASTIN TIME 121.9 seconds 22.5-36.0 H (BEAKER) (test code = 760) POCT-GLUCOSE [id number] 16:46:00 Test Item Value Reference Range Interpretation Comments POC-GLUCOSE METER 135 mg/dL 70-110 H TESTED AT [place] [address] ([facility] (test code = [facility] 1538) [address] POCT-GLUCOSE [id number] 13:28:00 Test Item Value Reference Range Interpretation Comments POC-GLUCOSE METER 96 mg/dL 70-110 TESTED AT [facility] 6720 (BEAKER) (test code = [place] [address] 1538) [id number] 09:15:00 Test Item Value Reference Range Interpretation Comments PARTIAL THROMBOPLASTIN TIME 58.1 seconds 22.5-36.0 H (BEAKER) (test code = 760) BASIC METABOLIC [id number] 07:31:00 Test Item Value Reference Range Interpretation [...] S NOT APPLICABLE FOR DIALYSIS PATIEN TS. [id number] 07:19:00 Test Item Value Reference Range Interpretation Comments PHOSPHORUS (BEAKER) (test code = 3.7 mg/dL 2.3-4.7 604) [id number] 07:19:00 Test Item Value Reference Range Interpretation Comments MAGNESIUM (BEAKER) (test code = 1.7 mg/dL 1.6-2.6 627) [id number] 07:07:00 Test Item Value Reference Range Interpretation Comments PARTIAL THROMBOPLASTIN TIME 124.4 seconds 22.5-36.0 H (BEAKER) (test code = 760) PROTHROMBIN [id number] 07:02:00 Test Item Value Reference Range Interpretation [...] 0-1 PERCENT (BEAKER) (test code = 2801) [id number] 23:01:00 Test Item Value Reference Range Interpretation Comments PARTIAL THROMBOPLASTIN TIME 46.5 seconds 22.5-36.0 H (BEAKER) (test code = 760) POCT-GLUCOSE [id number] 22:45:00 Test Item Value Reference Range Interpretation Comments POC-GLUCOSE METER 144 mg/dL 70-110 H TESTED AT [place] [address] ([facility]) (test code = [facility] 1538) [address] [id number] 15:02:00 Test Item Value Reference Range Interpretation Comments PARTIAL THROMBOPLASTIN TIME 56.1 seconds 22.5-36.0 H ([facility]) (test code = 760) POCT-GLUCOSE [id number] 14:39:00 Test Item Value Reference Range Interpretation Comments POC-GLUCOSE METER 189 mg/dL 70-110 H TESTED AT [facility] 6720 ([facility]) (test code = [facility] 1538) [address] HIV-1 PCR, [id number] 13:58:00 Test Item Value Reference Range Interpretation Comments HIV-1 NUMERIC RESULT (BEAKER) (test 170 Cp/mL <20 H code = 2704) This test uses a Real-Time Polymerase Chain Reaction (RT-PCR) methodology to detect a highly conserved region of the HIV-1 gag gene and was performed using the ERICH AmpliPrep/ERICH TaqMan HIV-1 test kit version 2.0 ([employer]Reportable range for this assay is 20 - 10,000,000 copies per mL (1.3 - 7.0 Log copies/mL).[id number] 12:54:00 Test Item Value Reference Range Interpretation Comments PARTIAL THROMBOPLASTIN TIME 143.6 seconds 22.5-36.0 H (BEAKER) (test code = 760) [id number] 10:00:00Medical Cytology Report Case: [id number] Authorizing Provider: Alison Solano MD Collected: 08/13/2018 1803 Ordering Location: [address] Received: 08/14/2018 0901 Service Pathologist: Yamil Hamm MD Specimen: Pleural, Right RIGHT PLEURAL FLUID (CYTOSPINS AND CELL BLOCK): - NO MALIGNANT CELLS IDENTIFIED (SEE COMMENT) Signing Pathologist Direct Phone Line: [phone] signed by Yamil Hamm MD on 08/16/2018 [...] thoracentesis may be considered when fluid reaccumulates. 07345, 27496, 84040, 49412 x 2Left pleural effusion, history of AIDS, Kaposi's sarcoma, hepatitis C.RIGHT PLEURAL FLUID 300 mls bloody; 4 cytospins, cell blockCollected: [id number]: [id number] interpretation of this case included the use of immunohistochemistry or special stains. Please see the immunohistochemistry results in the COMMENT section. Immunohistochemistry technical testing was performed at [facility], Pathology Laboratory where it was developed and [...] Improvement Amendments of 1988 (CLIA-88) as qualified [facility], Department of Pathology, [address] [place] [address], [facility] of [facility], [address] [place] [address], [facility], [facility] of [facility], [address] [place] [address], IBAQ-GLUCOSE [id number] 08:29:00 Test Item Value Reference Range Interpretation Comments POC-GLUCOSE METER 96 mg/dL 70-110 TESTED AT [place] [address] (BEAKER) (test code = [facility] [address] 4558) BODY FLUID CULTURE + GRAM [id number] 07:54:00 Test Item Value Reference Range Interpretation Comments CULTURE (BEAKER) (test code No growth = 1095) GRAM STAIN RESULT (BEAKER) <1+ WBCs (test code = 1123) GRAM STAIN RESULT (BEAKER) No organisms seen (test code = 48141) BASIC METABOLIC [id number] 06:30:00 Test Item Value Reference Range Interpretation [...] S NOT APPLICABLE FOR DIALYSIS PATIEN TS. [id number] 06:26:00 Test Item Value Reference Range Interpretation Comments MAGNESIUM (BEAKER) (test code = 1.6 mg/dL 1.6-2.6 627) [id number] 05:48:00 Test Item Value Reference Range Interpretation Comments PARTIAL THROMBOPLASTIN TIME 80.3 seconds 22.5-36.0 H (BEAKER) (test code = 760) While on warfarin.PROTHROMBIN TIME/[id number] 05:46:00 Test Item Value Reference Range Interpretation [...] valves.While on warfarin.CBC W/PLT COUNT & AUTO [id number] 05:28:00 Test Item Value Reference Range Interpretation [...] 0-1 PERCENT (BEAKER) (test code = 2801) [id number] 22:09:00 Test Item Value Reference Range Interpretation Comments PARTIAL THROMBOPLASTIN TIME 61.5 seconds 22.5-36.0 H (BEAKER) (test code = 760) RAD, CHEST, 1 VIEW, NON [id number] 20:20:00Reason for exam:->eval right effusionShould this be [...] Anderson Verified Date/Time: 08/15/2018 20:20:24 Reading Location: [facility] Radiology Reading Room POCT-GLUCOSE [id number] 19:05:00 Test Item Value Reference Range Interpretation Comments POC-GLUCOSE METER 87 mg/dL 70-110 TESTED AT [place] [address] ([facility]) (test code = [facility] [address] 1538) POCT-GLUCOSE [id number] 13:12:00 Test Item Value Reference Range Interpretation Comments POC-GLUCOSE METER 162 mg/dL 70-110 H TESTED AT [place] [address] ([facility]) (test code = [facility] 1538) [address] [id number] 12:48:00 Test Item Value Reference Range Interpretation Comments PARTIAL THROMBOPLASTIN TIME 89.1 seconds 22.5-36.0 H ([facility]) (test code = 760) POCT-GLUCOSE [id number] 09:58:00 Test Item Value Reference Range Interpretation Comments POC-GLUCOSE METER 229 mg/dL 70-110 H TESTED AT [place] [address] ([facility]) (test code = [facility] 1538) [address] BASIC METABOLIC [id number] 05:40:00 Test Item Value Reference Range Interpretation [...] PATIEN TS. CBC W/PLT COUNT & AUTO [id number] 05:38:00 Test Item Value Reference Range Interpretation [...] 0-1 PERCENT (BEAKER) (test code = 2801) [id number] 05:28:00 Test Item Value Reference Range Interpretation Comments MAGNESIUM (BEAKER) (test code = 1.8 mg/dL 1.6-2.6 627) [id number] 04:47:00 Test Item Value Reference Range Interpretation Comments PARTIAL THROMBOPLASTIN TIME 60.9 seconds 22.5-36.0 H (BEAKER) (test code = 760) PROTHROMBIN [id number] 04:46:00 Test Item Value Reference Range Interpretation Comments PROTIME (BEAKER) (test code = 17.9 seconds 11.7-14.7 H 759) INR (BEAKER) (test code = 370) 1.5 <=5.9 RECOMMENDED COUMADIN/WARFARIN INR THERAPY RANGESSTANDARD DOSE: 2.0 - 3.0 Includes: PROPHYLAXIS forvenous thrombosis, systemic embolization; TREATMENT for venous thrombosis and/or pulmonary embolus.HIGH RISK: Target INR is 2.5-3.5 for patients with mechanical heart valves.[id number] 20:56:00 Test Item Value Reference Range Interpretation Comments PARTIAL THROMBOPLASTIN TIME 52.1 seconds 22.5-36.0 H (BEAKER) (test code = 760) CT, CHEST, WITHOUT [id number] 19:06:00S/p fall in Nov--> right effusion, tapped [...] MDReport Verified Date/Time: 08/14/2018 19:06:09 Reading Location: [address] Reading Room [facility] 2018-08-14 12:40:00 Test Item Value Reference Range Interpretation Comments PARTIAL THROMBOPLASTIN TIME 48.4 seconds 22.5-36.0 H (BEAKER) (test code = 760) CD4 T CELL [id number] 11:15:00 Test Item Value Reference Range Interpretation [...] 107-698 L (BEAKER) (test code = 3491) [id number] 10:48:00 Test Item Value Reference Range Interpretation Comments PHOSPHORUS (BEAKER) (test code = 5.2 mg/dL 2.3-4.7 H 604) BASIC METABOLIC [id number] 07:13:00 Test Item Value Reference Range Interpretation [...] S NOT APPLICABLE FOR DIALYSIS PATIEN TS. [id number] 07:11:00 Test Item Value Reference Range Interpretation Comments MAGNESIUM (BEAKER) (test code = 1.8 mg/dL 1.6-2.6 627) [id number] 07:00:00 Test Item Value Reference Range Interpretation Comments PARTIAL THROMBOPLASTIN TIME 59.2 seconds 22.5-36.0 H (BEAKER) (test code = 760) PROTHROMBIN TIME/[id number] 06:59:00 Test Item Value Reference Range Interpretation [...] 0-1 PERCENT (BEAKER) (test code = 2801) [id number] 00:30:00 Test Item Value Reference Range Interpretation Comments PARTIAL THROMBOPLASTIN TIME 56.7 seconds 22.5-36.0 H (BEAKER) (test code = 760) BODY FLUID CELL COUNT WITH [id number] 19:28:00 Test Item Value Reference Range Interpretation Comments APPEARANCE FLUID (BEAKER) (test Cloudy Clear A code = 510) COLOR FLUID (BEAKER) (test code Red Colorless, Straw A = 511) RBC FLUID (BEAKER) (test code = 94248 /cu mm <=1 H 513) ADJUSTED WBC [...] Tube (test code = 2873) ALBUMIN, BODY [id number] 18:40:00 Test Item Value Reference Range Interpretation Comments ALBUMIN FLUID (BEAKER) (test code = 2.1 gm/dL 501) Reference Range: No Normals Assay performance has not been validated for this type of specimen.LACTATE DEHYDROGENASE (LDH), BODY [id number] 18:40:00 Test Item Value Reference Range Interpretation [...] 125-220 H code = 635) HEPATIC FUNCTION [id number] 18:40:00 Test Item Value Reference Range Interpretation [...] 6-55 347) RAD, CHEST, 1 VIEW, NON [id number] 17:56:00Reason for exam:->post Right thoracentesisShould this be performed at the bedside?->YesFINAL REPORT Chest, one view. HISTORY: Right thoracentesis COMPARISON: Radiograph from earlier today IMPRESSION: Interval decrease in size of the pleural effusion on the right which is now small. No pneumothorax. Mild right basilar subsegmental atelectasis. The cardiac silhouette is enlarged and unchanged. Prior valve replacement and atrial appendage closure. Interstitial edema. Signed: Geoffrey Arteaga Verified Date/Time: 08/13/2018 17:56:18 Reading Location: [facility] C013W Consult Reading Room U/S, [id number] 16:22:00Reason for exam:->shortness of breath, recurrent right pleural effusionShould this be performed at the bedside?->NoFINAL REPORT Ultrasound guided right thoracentesis, 08/13/2018. Clinical History: Right pleural effusion. Modality: Ultrasound. Sedation: None. [employer] Insurance Agent: Gini. Control Technician: None. Estimated Blood Loss: 1cc Specimen: 1600 [...] and uncomplicated ultrasound guided right thoracentesis. Signed: Nigel Musa Verified Date/Time: 08/13/2018 16:22:16 Reading Location: [facility] B1 P006J Ultrasound Reading Room [id number] 07:18:00 Test Item Value Reference Range Interpretation Comments MAGNESIUM (BEAKER) (test code = 2.0 mg/dL 1.6-2.6 627) BASIC METABOLIC [id number] 07:18:00 Test Item Value Reference Range Interpretation [...] PATIEN TS. RAD, CHEST, 1 VIEW, NON [id number] 06:25:00Reason for exam:->SOBShould this be performed at [...] contours. Stable surgical changes.Additional findings: None. Signed: Tarsha Taylor Verified Date/Time: 08/13/2018 06:25:21 Reading Location: [address] Re ading Room [id number] 05:49:00 Test Item Value Reference Range Interpretation Comments PARTIAL THROMBOPLASTIN TIME 42.0 seconds 22.5-36.0 H (BEAKER) (test code = 760) PROTHROMBIN [id number] 05:48:00 Test Item Value Reference Range Interpretation [...] PERCENT (BEAKER) (test code = 2801) POCT-GLUCOSE [id number] 18:30:00 Test Item Value Reference Range Interpretation Comments POC-GLUCOSE METER 80 mg/dL 70-110 TESTED AT [facility] 6720 (BEAKER) (test code = [facility] [address] 1538) RAD, CHEST, 1 VIEW, NON [id number] 13:46:00Reason for exam:->evaluate pleural effusionShould this be performed at the bedside?->YesFINAL REPORT Comparison: 08/02/2018 TECHNIQUE: Single view of the chest FINDINGS Bilateral interstitial and airspace opacities are stable. Bilateral pleural effusions seen, right greater than left. No gross new lung parenchymal changes. Post surgical changes in the mediastinum. IMPRESSION: No significant interval change. Signed: Kyle Rome MDReport Verified Date/Time: 08/06/2018 13:46:20 Reading Location: [facility] Radiology Reading Room [id number] 09:33:00 Test Item Value Reference Range Interpretation Comments PARTIAL THROMBOPLASTIN TIME 113.6 seconds 22.5-36.0 H (BEAKER) (test code = 760) [id number] 06:48:00 Test Item Value Reference Range Interpretation [...] heart valves.While on warfarin.While on warfarin.BASIC METABOLIC [id number] 06:45:00 Test Item Value Reference Range Interpretation [...] NOT APPLICABLE FOR DIALYSIS PATIEN TS. PROTHROMBIN [id number] 06:43:00 Test Item Value Reference Range Interpretation [...] WBC 0-0 (BEAKER) (test code = 413) [id number] 20:40:00 Test Item Value Reference Range Interpretation Comments PARTIAL THROMBOPLASTIN TIME 81.7 seconds 22.5-36.0 H (BEAKER) (test code = 760) [id number] 14:05:00 Test Item Value Reference Range Interpretation Comments PARTIAL THROMBOPLASTIN TIME 91.5 seconds 22.5-36.0 H (BEAKER) (test code = 760) BASIC METABOLIC [id number] 07:02:00 Test Item Value Reference Range Interpretation [...] S NOT APPLICABLE FOR DIALYSIS PATIEN TS. [id number] 06:47:00 Test Item Value Reference Range Interpretation [...] valves.Ok to add onOk to add onPROTHROMBIN TIME/[id number] 06:46:00 Test Item Value Reference Range Interpretation [...] 0-1 PERCENT (BEAKER) (test code = 2801) [id number] 16:22:00 Test Item Value Reference Range Interpretation Comments PARTIAL THROMBOPLASTIN TIME 76.1 seconds 22.5-36.0 H (BEAKER) (test code = 760) BODY FLUID CULTURE + GRAM [id number] 09:10:00 Test Item Value Reference Range Interpretation Comments CULTURE (BEAKER) (test code No growth = 1095) GRAM STAIN RESULT (BEAKER) <1+ WBCs (test code = 1123) GRAM STAIN RESULT (BEAKER) No organisms seen (test code = 33917) CBC W/PLT COUNT & AUTO [id number] 07:23:00 Test Item Value Reference Range Interpretation [...] (BEAKER) (test code = 413) BASIC METABOLIC [id number] 07:05:00 Test Item Value Reference Range Interpretation [...] S NOT APPLICABLE FOR DIALYSIS PATIEN TS. [id number] 06:53:00 Test Item Value Reference Range Interpretation [...] heart valves.Ok to add onOk to add [id number] 06:53:00 Test Item Value Reference Range Interpretation Comments PARTIAL THROMBOPLASTIN TIME 70.3 seconds 22.5-36.0 H (BEAKER) (test code = 760) PROTHROMBIN [id number] 06:52:00 Test Item Value Reference Range Interpretation Comments PROTIME (BEAKER) (test code = 17.5 seconds 11.7-14.7 H 759) INR (BEAKER) (test code = 370) 1.4 <=5.9 RECOMMENDED COUMADIN/WARFARIN INR THERAPY RANGESSTANDARD DOSE: 2.0 - 3.0 Includes: PROPHYLAXIS forvenous thrombosis, systemic embolization; TREATMENT for venous thrombosis and/or pulmonary embolus.HIGH RISK: Target INR is 2.5-3.5 for patients with mechanical heart valves.PROTHROMBIN TIME/[id number] 06:51:00 Test Item Value Reference Range Interpretation Comments PROTIME (BEAKER) (test code = 17.7 seconds 11.7-14.7 H 759) INR (BEAKER) (test code = 370) 1.5 <=5.9 RECOMMENDED COUMADIN/WARFARIN INR THERAPY RANGESSTANDARD DOSE: 2.0 - 3.0 Includes: PROPHYLAXIS forvenous thrombosis, systemic embolization; TREATMENT for venous thrombosis and/or pulmonary embolus.HIGH RISK: Target INR is 2.5-3.5 for patients with mechanical heart valves.While on warfarin.[id number] 22:47:00 Test Item Value Reference Range Interpretation Comments PARTIAL THROMBOPLASTIN TIME 73.6 seconds 22.5-36.0 H (BEAKER) (test code = 760) [id number] 13:08:00 Test Item Value Reference Range Interpretation Comments PARTIAL THROMBOPLASTIN TIME 49.2 seconds 22.5-36.0 H (BEAKER) (test code = 760) BASIC METABOLIC [id number] 06:56:00 Test Item Value Reference Range Interpretation [...] S NOT APPLICABLE FOR DIALYSIS PATIEN TS. [id number] 06:56:00 Test Item Value Reference Range Interpretation Comments PARTIAL THROMBOPLASTIN TIME 67.5 seconds 22.5-36.0 H (BEAKER) (test code = 760) [id number] 06:45:00 Test Item Value Reference Range Interpretation [...] valves.Ok to add onOk to add onPROTHROMBIN TIME/[id number] 06:44:00 Test Item Value Reference Range Interpretation [...] /100 WBC 0-0 (test code = 413) [id number] 02:18:00 Test Item Value Reference Range Interpretation Comments PARTIAL THROMBOPLASTIN TIME 67.1 seconds 22.5-36.0 H (BEAKER) (test code = 760) [id number] 18:56:00 Test Item Value Reference Range Interpretation Comments PARTIAL THROMBOPLASTIN TIME 72.5 seconds 22.5-36.0 H (AKER) (test code = 760) POCT-GLUCOSE [id number] 13:08:00 Test Item Value Reference Range Interpretation Comments POC-GLUCOSE METER 121 mg/dL 70-110 H TESTED AT [facility] 6720 ([facility]) (test code = [place] 1538) [address] [id number] 12:07:00 Test Item Value Reference Range Interpretation Comments PARTIAL THROMBOPLASTIN TIME 50.7 seconds 22.5-36.0 H (AKER) (test code = 760) Ok to add onPROTHROMBIN TIME/[id number] 12:05:00 Test Item Value Reference Range Interpretation Comments PROTIME ([facility]) (test code = 16.7 seconds 11.7-14.7 H 759) INR ([facility]) (test code = 370) 1.4 [...] = 413) RAD, CHEST, 1 VIEW, NON [id number] 11:24:00Reason for exam:->pleural effusionShould this be performed at the bedside?->YesFINAL REPORT AP chest HISTORY: Pleural effusion COMPARISON: 08/01/2018 IMPRESS ION:Intact skeleton. Cardiomegaly. Moderate interstitial edema. Moderate right and small left effusions. No pneumothorax. Signed: Mandy Chairez MDReport Verified Date/Time: 08/02/2018 11:24:33 Reading Location: [facility] C0X Ortho Consult Reading Room BASIC METABOLIC [id number] 02:55:00 Test Item Value Reference Range Interpretation [...] S NOT APPLICABLE FOR DIALYSIS PATIEN TS. [id number] 02:39:00 Test Item Value Reference Range Interpretation Comments PARTIAL THROMBOPLASTIN TIME 51.6 seconds 22.5-36.0 H (BEAKER) (test code = 760) CBC W/PLT COUNT & AUTO [id number] 02:30:00 Test Item Value Reference Range Interpretation [...] = 2801) BODY FLUID CELL COUNT WITH [id number] 21:13:00 Test Item Value Reference Range Interpretation Comments APPEARANCE FLUID (BEAKER) (test Bloody Clear A code = 510) COLOR FLUID (BEAKER) (test code Sunil Colorless, Straw A = 511) RBC FLUID (BEAKER) (test code = 39420 /cu mm <=1 H 513) ADJUSTED WBC [...] Tube (test code = 2873) ALBUMIN, BODY [id number] 20:00:00 Test Item Value Reference Range Interpretation Comments ALBUMIN FLUID (BEAKER) (test code = 2.1 gm/dL 501) Reference Range: No Normals Assay performance has not been validated for this type of specimen.LACTATE DEHYDROGENASE (LDH), BODY [id number] 20:00:00 Test Item Value Reference Range Interpretation [...] of specimen.RAD, CHEST, PA OR AP, 1 [id number] 17:08:00Ultrasound Room 1Reason for exam:->s/p Right sided [...] [place] Verified Date/Time: 08/01/2018 17:08:13 Reading Location: [facility] Radiology Reading Room U/S, [id number] 17:03:00 Laterality?->RightReason for exam:->large pleural effusionFINAL REPORT HISTORY: Right pleural effusion Following informed written consent, the patient's right posterior chest wall was prepped and draped in the usual sterile manner. 2% lidocaine was given locally for anesthesia. No conscious sedation was administered. Vital signs were monitored and remained stable. Using ultrasound guidance and a 5 Swazi angiocatheter, access was gain ed to the [...] was removed, as d escribed above. Signed: Larry Seymour Verified Date/Time: 08/01/2018 17:03:15 Reading Location: [facility] P006 Ultrasound Reading Room RAD, CHEST, 1 VIEW, NON [id number] 12:40:00Reason for exam:->pleural effusion; shortness of breathShould [...] MDReport Verified Date/Time: 08/01/2018 12:40:42 [facility] APTT 2018-08-01 11:33:00 Test Item Value Reference Range Interpretation Comments PARTIAL THROMBOPLASTIN TIME 118.1 seconds 22.5-36.0 H (BEAKER) (test code = 760) BASIC METABOLIC [id number] 02:07:00 Test Item Value Reference Range Interpretation [...] S NOT APPLICABLE FOR DIALYSIS PATIEN TS. [id number] 01:55:00 Test Item Value Reference Range Interpretation [...] is 2.5-3.5 for patients with mechanical heart valves.[id number] 01:55:00 Test Item Value Reference Range Interpretation Comments PARTIAL THROMBOPLASTIN TIME 96.8 seconds 22.5-36.0 H (BEAKER) (test code = 760) CBC W/PLT COUNT & AUTO [id number] 01:38:00 Test Item Value Reference Range Interpretation [...] 0-1 PERCENT (BEAKER) (test code = 2801) [id number] 18:58:00 Test Item Value Reference Range Interpretation Comments PARTIAL THROMBOPLASTIN TIME 61.7 seconds 22.5-36.0 H (BEAKER) (test code = 760) [id number] 09:22:00 Test Item Value Reference Range Interpretation Comments PARTIAL THROMBOPLASTIN TIME 61.5 seconds 22.5-36.0 H (BEAKER) (test code = 760) BASIC METABOLIC [id number] 02:14:00 Test Item Value Reference Range Interpretation [...] S NOT APPLICABLE FOR DIALYSIS PATIEN TS. [id number] 01:43:00 Test Item Value Reference Range Interpretation [...] is 2.5-3.5 for patients with mechanical heart valves.[id number] 01:43:00 Test Item Value Reference Range Interpretation Comments PARTIAL THROMBOPLASTIN TIME 62.7 seconds 22.5-36.0 H (BEAKER) (test code = 760) CBC W/PLT COUNT & AUTO [id number] 01:32:00 Test Item Value Reference Range Interpretation [...] 0-1 PERCENT (BEAKER) (test code = 2801) [id number] 18:38:00 Test Item Value Reference Range Interpretation Comments PARTIAL THROMBOPLASTIN TIME 38.9 seconds 22.5-36.0 H (BEAKER) (test code = 760) Prior to initiating heparinPLATELET [id number] 18:17:00 Test Item Value Reference Range Interpretation Comments PLATELET COUNT (BEAKER) (test 115 K/CU MM 150-450 L code = 756) RAD, CHEST, 2 [id number] 18:05:00Reason for exam:->sob and pleural effusionFINAL REPORT [...] A superimposed pneumonia cannot be excluded. Signed: Aditi Sykes Verified Date/Time: 07/30/2018 18:05:46Reading Location: [address] Reading Room C METABOLIC [id number] 05:26:00 Test Item Value Reference Range Interpretation [...] S NOT APPLICABLE FOR DIALYSIS PATIEN TS. [id number] 05:25:00 Test Item Value Reference Range Interpretation [...] 2.5-3.5 for patients with mechanical heart valves.PROTHROMBIN [id number] 05:24:00 Test Item Value Reference Range Interpretation [...] (test code = 2801) HEPATITIS B SURFACE [id number] 12:09:00 Test Item Value Reference Range Interpretation Comments HEPATITIS B SURFACE ANTIGEN (2) Nonreactive Nonreactive (BEAKER) (test code = 2585) POCT-GLUCOSE [id number] 07:50:00 Test Item Value Reference Range Interpretation Comments POC-GLUCOSE METER 93 mg/dL 70-110 TESTED AT [facility] 6720 (BEAKER) (test code = [place] [address] 1538) [id number] 04:59:00 Test Item Value Reference Range Interpretation [...] for patients with mechanical heart valves.BASIC METABOLIC [id number] 04:59:00 Test Item Value Reference Range Interpretation [...] PATIEN TS. CBC W/PLT COUNT & AUTO [id number] 04:51:00 Test Item Value Reference Range Interpretation [...] (test code = 2801) AFB CULTURE + [id number] 16:13:00 Test Item Value Reference Range Interpretation Comments CULTURE (BEAKER) (test No acid-fast bacilli code = 1095) isolated in 42 days AFB SMEAR (BEAKER) No acid fast bacilli (test code = 994) seen AFB CULTURE + [id number] 16:13:00 Test Item Value Reference Range Interpretation Comments CULTURE (BEAKER) (test No acid-fast bacilli code = 1095) isolated in 42 days AFB SMEAR (BEAKER) No acid fast bacilli (test code = 994) seen FUNGUS CULTURE + [id number] 07:13:00 Test Item Value Reference Range Interpretation Comments CULTURE (BEAKER) (test No fungus isolated in code = 1095) 28 days FUNGUS SMEAR (BEAKER) No fungi seen (test code = 1406) FUNGUS CULTURE + [id number] 07:13:00 Test Item Value Reference Range Interpretation Comments CULTURE (BEAKER) (test No fungus isolated in code = 1095) 28 days FUNGUS SMEAR (BEAKER) No fungi seen (test code = 1406) TISSUE [id number] 19:17:00Surgical Pathology Report Case: [id number] Authorizing Provider: Juliana Martinez MD Collected: 05/23/201825 Ordering Location: [facility] Received: 05/23/2018 09 SERVICES Pathologist: Brigida Parks MD Specimen: SoftTissue, Other, LEFT GROIN - TISSUE BIOPSY SKIN AND SOFT TISSUE,GROIN,LEFT, BIOPSY: - ABSCESSES, GRANULOMAS AND CHRONIC INFLAMMATION - NEGATIVE FOR DYSPLASIA OR MALIGNANCY - AFB AND GMS STAINS ARE NEGATIVE (SEE COMMENT) Signing Pathologist Direct Phone Line: [phone] signed by Brigida Parks MD on 06/02/2018 at 7:17 PMCorrelation with culture studies is recommended.[id number] abscess groinLeft groin tissue biopsyReceived fresh labeled "soft tissue, other", description "left groin tissue biopsy" are two dark-porter, wrinkled,hair- bearing strips of skin measuring 1.5 and 2.6 cm in length, 0.3 cm in diameter and excised to a depth of 0.3 cm.Sectioning reveals no discrete masses.The specimen is entirely submitted in cassettesA1. DB/ewPOCT-GLUCOSE [id number] 08:51:00 Test Item Value Reference Range Interpretation Comments POC-GLUCOSE METER 101 mg/dL 70-110 TESTED AT [facility] 67[address] [facility] (test code = [place] 1538) [address] CBC W/PLT COUNT & AUTO [id number] 06:01:00 Test Item Value Reference Range Interpretation [...] PERCENT (BEAKER) (test code = 2801) PROTHROMBIN [id number] 05:51:00 Test Item Value Reference Range Interpretation Comments PROTIME (BEAKER) (test code = 25.9 seconds 11.7-14.7 H 759) INR (BEAKER) (test code = 370) 2.4 <=5.9 RECOMMENDED COUMADIN/WARFARIN INR THERAPY RANGESSTANDARD DOSE: 2.0 - 3.0 Includes: PROPHYLAXIS forvenous thrombosis, systemic embolization; TREATMENT for venous thrombosis and/or pulmonary embolus.HIGH RISK: Target INR is 2.5-3.5 for patients with mechanical heart valves.BASIC METABOLIC [id number] 05:46:00 Test Item Value Reference Range Interpretation [...] H (BEAKER) (test code = 652) CALCIUM ([facility]) 9.0 mg/dL 8.4-10.2 (test code = 697) EGFR ([facility]) (test 14 mL/min/1.73 ESTIMA JAYLA GFR IS code = 1092) sq m NOT ACCURATE CREATININE CLEARANCE IN PREDICTING GLOMERULAR FILTRATION RATE . ESTIMATED GFR I S NOT APPLICABLE FOR DIALYSIS PATIEN TS. POCT-GLUCOSE [id number] 20:34:00 Test Item Value Reference Range Interpretation Comments POC-GLUCOSE METER 261 mg/dL 70-110 H TESTED AT [place] [address] ([facility]) (test code = [facility] 1538) [address] POCT-GLUCOSE [id number] 18:12:00 Test Item Value Reference Range Interpretation Comments POC-GLUCOSE METER 139 mg/dL 70-110 H TESTED AT [place] [address] ([facility]) (test code = [facility] 1538) [address] POCT-GLUCOSE [id number] 11:51:00 Test Item Value Reference Range Interpretation Comments POC-GLUCOSE METER 147 mg/dL 70-110 H TESTED AT [place] [address] ([facility]) (test code = [facility] 1538) [address] POCT-GLUCOSE [id number] 08:42:00 Test Item Value Reference Range Interpretation Comments POC-GLUCOSE METER 104 mg/dL 70-110 TESTED AT [place] [address] ([facility]) (test code = [facility] 1538) [address] CBC W/PLT COUNT & AUTO [id number] 06:56:00 Test Item Value Reference Range Interpretation Comments WHITE BLOOD CELL COUNT ([facility]) 8.0 K/ L 3.5-10.5 (test code = 775) RED BLOOD CELL COUNT ([facility]) 3.40 M/ L 4.63-6.08 L (test code = 761) HEMOGLOBIN ([facility]) (test code = 10.2 GM/DL 13.7-17.5 L 410) HEMATOCRIT ([facility]) (test code = 32.0 % 40.1-51.0 L 411) MEAN CORPUSCULAR VOLUME ([facility]) 94.1 fL 79.0-92.2 H (test code = [...] (BEAKER) (test code = 2801) BASIC METABOLIC [id number] 06:49:00 Test Item Value Reference Range Interpretation [...] NOT APPLICABLE FOR DIALYSIS PATIEN TS. PROTHROMBIN [id number] 06:46:00 Test Item Value Reference Range Interpretation Comments PROTIME ([employer]) (test code = 26.9 seconds 11.7-14.7 H 759) INR (BEAKER) (test code = 370) 2.5 <=5.9 RECOMMENDED COUMADIN/WARFARIN INR THERAPY RANGESSTANDARD DOSE: 2.0 - 3.0 Includes: PROPHYLAXIS forvenous thrombosis, systemic embolization; TREATMENT for venous thrombosis and/or pulmonary embolus.HIGH RISK: Target INR is 2.5-3.5 for patients with mechanical heart valves.ANAEROBIC [id number] 00:38:00 Test Item Value Reference Range Interpretation Comments CULTURE ([employer]) (test No anaerobes isolated code = 1095) ANAEROBIC [id number] 00:38:00 Test Item Value Reference Range Interpretation Comments CULTURE ([employer]) (test No anaerobes isolated code = 1095) POCT-GLUCOSE [id number] 20:43:00 Test Item Value Reference Range Interpretation Comments POC-GLUCOSE METER 124 mg/dL 70-110 H TESTED AT [place] [address] ([employer]) (test code = [place] 1538) [address] POCT-GLUCOSE [id number] 17:17:00 Test Item Value Reference Range Interpretation Comments POC-GLUCOSE METER 190 mg/dL 70-110 H TESTED AT [place] [address] ([employer]) (test code = [place] 1538) [address] POCT-GLUCOSE [id number] 11:54:00 Test Item Value Reference Range Interpretation Comments POC-GLUCOSE METER 195 mg/dL 70-110 H TESTED AT [place] [address] ([employer]) (test code = [place] 1538) [address] C. DIFFICILE GDH [id number] 11:16:00 Test Item Value Reference Range Interpretation Comments CDT TOXIN (test code Negative Negative = [id number]) CDT GDH ANTIGEN (test Negative Negative No ind ication of code = [id number]) Clostridi um difficile infection and n o colonization. Discontinue ent kenrick isolation and t herapy. Testing performed by [employer] Rapid Cassette Assay. For GDH, published sensitivity of the assay is 98.7% compared to cytotoxicity testing. For Toxin AB, published sensitivity is 87.8% and specificity 99.4% compared to cytotoxicity testing.Verification of kit performance was done by the [facility] Microbiology Lab prior to clinical use.SURGICALLY OBTAINED CULTURE + GRAM [id number] 09:22:00 Test Item Value Reference Interpretation Comments [...] No organisms seen (BEAKER) (test code = 255395) SURGICALLY OBTAINED CULTURE + GRAM [id number] 09:20:00 Test Item Value Reference Range Interpretation Comments CULTURE (BEAKER) (test code No growth = 1095) GRAM STAIN RESULT (BEAKER) 4+ WBCs (test code = 1123) GRAM STAIN RESULT (BEAKER) No organisms seen (test code = 16566) POCT-GLUCOSE [id number] 08:21:00 Test Item Value Reference Range Interpretation Comments POC-GLUCOSE METER 101 mg/dL 70-110 TESTED AT [facility] 6720 (BEAKER) (test code = [place] 1538) [address] BASIC METABOLIC [id number] 07:57:00 Test Item Value Reference Range Interpretation [...] NOT APPLICABLE FOR DIALYSIS PATIEN TS. PROTHROMBIN [id number] 06:36:00 Test Item Value Reference Range Interpretation [...] PERCENT (BEAKER) (test code = 2801) POCT-GLUCOSE [id number] 21:40:00 Test Item Value Reference Range Interpretation Comments POC-GLUCOSE METER 176 mg/dL 70-110 H TESTED AT [facility] 6720 (BEAKER) (test code = [place] 1538) [address] POCT-GLUCOSE [id number] 16:07:00 Test Item Value Reference Range Interpretation Comments POC-GLUCOSE METER 120 mg/dL 70-110 H TESTED AT [facility] 6720 (BEAKER) (test code = [place] 1538) [address] POCT-GLUCOSE [id number] 08:31:00 Test Item Value Reference Range Interpretation Comments POC-GLUCOSE METER 119 mg/dL 70-110 H TESTED AT [facility] 6720 (BEAKER) (test code = [place] 1531) [address] BASIC METABOLIC [id number] 08:19:00 Test Item Value Reference Range Interpretation [...] APPLICABLE FOR DIALYSIS PATIEN TS. VANCOMYCIN LEVEL, [id number] 08:16:00 Test Item Value Reference Range Interpretation Comments VANCOMYCIN RANDOM (BEAKER) (test 17.6 ug/mL code = 523) Reference Range: No NormalsPROTHROMBIN [id number] 07:21:00 Test Item Value Reference Range Interpretation [...] PERCENT (BEAKER) (test code = 2801) BLOOD [id number] 06:00:00 Test Item Value Reference Range Interpretation Comments CULTURE (BEAKER) (test No growth in 5 days code = 1095) BLOOD [id number] 00:00:00 Test Item Value Reference Range Interpretation Comments CULTURE (BEAKER) (test No growth in 5 days code = 1095) POCT-GLUCOSE [id number] 22:05:00 Test Item Value Reference Range Interpretation Comments POC-GLUCOSE METER 169 mg/dL 70-110 H TESTED AT [place] [address] (BEAKER) (test code = [facility] 1538) [address] POCT-GLUCOSE [id number] 18:20:00 Test Item Value Reference Range Interpretation Comments POC-GLUCOSE METER 110 mg/dL 70-110 TESTED AT [place] [address] (BEAKER) (test code = [facility] 1538) [address] POCT-GLUCOSE [id number] 17:17:00 Test Item Value Reference Range Interpretation Comments POC-GLUCOSE METER 99 mg/dL 70-110 TESTED AT [place] [address] (BEAKER) (test code = [facility] [address] 1538) SPIN/CONCENTRATION [id number] 14:49:00 Test Item Value Reference Range Interpretation Comments CONCENTRATION CHARGED (BEAKER) (test Done code = 2657) SPIN/CONCENTRATION [id number] 14:49:00 Test Item Value Reference Range Interpretation Comments CONCENTRATION CHARGED (BEAKER) (test Done code = 2657) POCT-GLUCOSE [id number] 12:13:00 Test Item Value Reference Range Interpretation Comments POC-GLUCOSE METER 188 mg/dL 70-110 H TESTED AT [place] [address] (BEAKER) (test code = [facility] 1538) [address] BASIC METABOLIC [id number] 09:56:00 Test Item Value Reference Range Interpretation [...] NOT APPLICABLE FOR DIALYSIS PATIEN TS. POCT-GLUCOSE [id number] 07:45:00 Test Item Value Reference Range Interpretation Comments POC-GLUCOSE METER 108 mg/dL 70-110 TESTED AT [facility] 6720 ([facility]) (test code = [place] 1538) [address] CBC W/PLT COUNT & AUTO [id number] 07:00:00 Test Item Value Reference Range Interpretation [...] PERCENT (BEAKER) (test code = 2801) PROTHROMBIN [id number] 06:47:00 Test Item Value Reference Range Interpretation Comments PROTIME (BEAKER) (test code = 20.7 seconds 11.7-14.7 H 759) INR (BEAKER) (test code = 370) 1.8 <=5.9 RECOMMENDED COUMADIN/WARFARIN INR THERAPY RANGESSTANDARD DOSE: 2.0 - 3.0 Includes: PROPHYLAXIS forvenous thrombosis, systemic embolization; TREATMENT for venous thrombosis and/or pulmonary embolus.HIGH RISK: Target INR is 2.5-3.5 for patients with mechanical heart valves.POCT-GLUCOSE [id number] 20:42:00 Test Item Value Reference Range Interpretation Comments POC-GLUCOSE METER 134 mg/dL 70-110 H TESTED AT [facility] 6720 ([facility]) (test code = [place] [facility] 1538) [address] POCT-GLUCOSE [id number] 13:29:00 Test Item Value Reference Range Interpretation Comments POC-GLUCOSE METER 209 mg/dL 70-110 H TESTED AT [facility] 6720 ([facility]) (test code = [place] [facility] 1538) [address] POCT-GLUCOSE [id number] 08:53:00 Test Item Value Reference Range Interpretation Comments POC-GLUCOSE METER 103 mg/dL 70-110 TESTED AT [facility] 6720 (BEAKER) (test code = [place] 1538) [address] BASIC METABOLIC [id number] 07:47:00 Test Item Value Reference Range Interpretation [...] DIALYSIS PATIEN TS. WOUND CULTURE + GRAM [id number] 07:44:00 Test Item Value Reference Range Interpretation Comments CULTURE (BEAKER) (test code No growth = 1095) GRAM STAIN RESULT (BEAKER) No WBCs (test code = 1123) GRAM STAIN RESULT (BEAKER) No organisms seen (test code = 62762) [id number] 07:38:00 Test Item Value Reference Range Interpretation Comments PHOSPHORUS (BEAKER) (test code = 3.2 mg/dL 2.3-4.7 604) CBC W/PLT COUNT & AUTO [id number] 06:35:00 Test Item Value Reference Range Interpretation [...] PERCENT (BEAKER) (test code = 2801) PROTHROMBIN [id number] 06:32:00 Test Item Value Reference Range Interpretation Comments PROTIME (BEAKER) (test code = 23.2 seconds 11.7-14.7 H 759) INR (BEAKER) (test code = 370) 2.1 <=5.9 RECOMMENDED COUMADIN/WARFARIN INR THERAPY RANGESSTANDARD DOSE: 2.0 - 3.0 Includes: PROPHYLAXIS forvenous thrombosis, systemic embolization; TREATMENT for venous thrombosis and/or pulmonary embolus.HIGH RISK: Target INR is 2.5-3.5 for patients with mechanical heart valves.POCT-GLUCOSE [id number] 21:21:00 Test Item Value Reference Range Interpretation Comments POC-GLUCOSE METER 177 mg/dL 70-110 H TESTED AT [place] [address] ([facility]) (test code = [facility] 1538) [address] POCT-GLUCOSE [id number] 17:53:00 Test Item Value Reference Range Interpretation Comments POC-GLUCOSE METER 89 mg/dL 70-110 TESTED AT [place] [address] ([facility]) (test code = [facility] [address] 1538) IRON, TIBC, % SAT. (WITHOUT FERRITIN)[id number] 17:45:00 Test Item Value Reference Range Interpretation Comments IRON (BEAKER) (test code = 547) 63 ug/dL 40-160 TOTAL IRON BINDING CAPACITY 203 ug/dL 250-450 L ([facility]) (test code = 769) IRON % SATURATION (2) ([facility]) 31 % 20-55 (test code = 2590) [id number] 16:07:00 Test Item Value Reference Range Interpretation Comments PHOSPHORUS (BEAKER) (test code = 5.4 mg/dL 2.3-4.7 H 604) POCT-GLUCOSE [id number] 12:41:00 Test Item Value Reference Range Interpretation Comments POC-GLUCOSE METER 110 mg/dL 70-110 TESTED AT [place] [address] ([facility]) (test code = [facility] 1538) [address] POCT-GLUCOSE [id number] 07:00:00 Test Item Value Reference Range Interpretation Comments POC-GLUCOSE METER 159 mg/dL 70-110 H TESTED AT [place] [address] ([facility]) (test code = [facility] 1538) [address] BASIC METABOLIC [id number] 05:19:00 Test Item Value Reference Range Interpretation [...] S NOT APPLICABLE FOR DIALYSIS PATIEN TS. [id number] 05:18:00 Test Item Value Reference Range Interpretation Comments MAGNESIUM (BEAKER) (test code = 1.9 mg/dL 1.6-2.6 627) PROTHROMBIN [id number] 05:03:00 Test Item Value Reference Range Interpretation [...] 0-1 H PERCENT (BEAKER) (test code = 2809) POCT-GLUCOSE [id number] 23:35:00 Test Item Value Reference Range Interpretation Comments POC-GLUCOSE METER 190 mg/dL 70-110 H TESTED AT [facility] 6720 (BEAKER) (test code = [place] 1538) [address] POCT-GLUCOSE [id number] 17:16:00 Test Item Value Reference Range Interpretation Comments POC-GLUCOSE METER 122 mg/dL 70-110 H TESTED AT [place] [address] ([facility]) (test code = [place] [facility] 1538) [address] U/S, TESTICULAR (SCROTUM)2018-05-21 14:53:00Reason for exam:->testicular swellingFINAL [...] MDReport Verified Date/Time: 05/21/2018 14:53:00 Reading Location: [address] UltrasoundReading Room POCT- GLUCOSE [id number] 11:22:00 Test Item Value Reference Range Interpretation Comments POC-GLUCOSE METER 144 mg/dL 70-110 H TESTED AT [facility] 6720 ([facility]) (test code = [place] [facility] 1538) [address] POCT-GLUCOSE [id number] 07:05:00 Test Item Value Reference Range Interpretation Comments POC-GLUCOSE METER 171 mg/dL 70-110 H TESTED AT [facility] 6720 (BEAKER) (test code = [place] 1538) [address] BASIC METABOLIC [id number] 06:19:00 Test Item Value Reference Range Interpretation [...] S NOT APPLICABLE FOR DIALYSIS PATIEN TS. [id number] 06:04:00 Test Item Value Reference Range Interpretation Comments MAGNESIUM (BEAKER) (test code = 1.9 mg/dL 1.6-2.6 627) PROTHROMBIN [id number] 05:31:00 Test Item Value Reference Range Interpretation [...] PERCENT (BEAKER) (test code = 2801) POCT-GLUCOSE [id number] 21:29:00 Test Item Value Reference Range Interpretation Comments POC-GLUCOSE METER 156 mg/dL 70-110 H TESTED AT [place] [address] ([facility]) (test code = [place] [facility] 1538) [address] POCT-GLUCOSE [id number] 18:14:00 Test Item Value Reference Range Interpretation Comments POC-GLUCOSE METER 93 mg/dL 70-110 TESTED AT [place] [address] ([facility]) (test code = MARIA GSC [place] [facility] [address] 1538) PROTHROMBIN [id number] 13:26:00 Test Item Value Reference Range Interpretation Comments PROTIME ([facility]) (test code = 42.0 seconds 11.7-14.7 H 759) INR ([facility]) (test code = 370) 4.4 <=5.9 RECOMMENDED COUMADIN/WARFARIN INR THERAPY RANGESSTANDARD DOSE: 2.0 - 3.0 Includes: PROPHYLAXIS forvenous thrombosis, systemic embolization; TREATMENT for venous thrombosis and/or pulmonary embolus.HIGH RISK: Target INR is 2.5-3.5 for patients with mechanical heart valves.LACTIC ACID, VENOUS, WHOLE [id number] 13:18:00 Test Item Value Reference Range Interpretation Comments LACTATE BLOOD VENOUS (2) ([facility]) 0.8 mmol/L 0.5-2.2 (test code = 2872) Effective 01/04/2016: Units/Reference Range ChangeNew: 0.5-2.2 mmol/L Previous: 5-20 mg/dLPOCT-GLUCOSE [id number] 12:04:00 Test Item Value Reference Range Interpretation Comments POC-GLUCOSE METER 111 mg/dL 70-110 H TESTED AT [place] [address] ([facility]) (test code = [facility] 1538) [address] CD4 T CELL [id number] 12:04:00 Test Item Value Reference Range Interpretation Comments CD4/CD8 RATIO FC ([facility]) (test code = 0.76 0.70-3.23 1) HEPATITIS B SURFACE [id number] 11:32:00 Test Item Value Reference Range Interpretation Comments HEPATITIS B SURFACE ANTIGEN (2) Nonreactive Nonreactive ([facility]) (test code = 2585) VANCOMYCIN LEVEL, [id number] 11:10:00 Test Item Value Reference Range Interpretation Comments VANCOMYCIN RANDOM (BEAKER) (test 20.7 ug/mL code = 523) Reference Range: No NormalsBASIC METABOLIC [id number] 09:19:00 Test Item Value Reference Range Interpretation [...] S NOT APPLICABLE FOR DIALYSIS PATIEN TS. [id number] 09:16:00 Test Item Value Reference Range Interpretation Comments MAGNESIUM (BEAKER) (test code = 2.1 mg/dL 1.6-2.6 627) RAD, CHEST, 1 VIEW, NON [id number] 07:56:00Reason for exam:->pleural effusion seen on outside hospital imagingShould this be performed at the bedside?->YesFINAL REPORT Chest one view compared to February 23 Discussion: Small effusions are similar. Replaced cardiac valve and atrial appendage clip noted. No pneumothorax. Unchanged cardiac pulmonary appearance. Signed: Larry Colindres Verified Date/Time: 05/20/2018 07:56:50 Reading Location: [facility] Radiology Reading Room POCT-GLUCOSE [id number] 07:32:00 Test Item Value Reference Range Interpretation Comments POC-GLUCOSE METER 105 mg/dL 70-110 TESTED AT [facility] 6720 (BEAKER) (test code = [place] 1538) [address] CBC W/PLT COUNT & AUTO [id number] 07:01:00 Test Item Value Reference Range Interpretation [...] (BEAKER) (test code = 2801) VANCOMYCIN LEVEL, [id number] 22:39:00 Test Item Value Reference Range Interpretation Comments VANCOMYCIN RANDOM (BEAKER) (test 22.0 ug/mL code = 523) Reference Range: No NormalsCOMPREHENSIVE METABOLIC [id number] 22:39:00 Test Item Value Reference Range Interpretation [...] S NOT APPLICABLE FOR DIALYSIS PATIEN TS. [id number] 22:38:00 Test Item Value Reference Range Interpretation Comments PHOSPHORUS (BEAKER) (test code = 4.5 mg/dL 2.3-4.7 604) [id number] 22:38:00 Test Item Value Reference Range Interpretation Comments MAGNESIUM (BEAKER) (test code = 2.0 mg/dL 1.6-2.6 627) [id number] 22:29:00 Test Item Value Reference Range Interpretation Comments PARTIAL THROMBOPLASTIN TIME 45.0 seconds 22.5-36.0 H (BEAKER) (test code = 760) PROTHROMBIN [id number] 22:28:00 Test Item Value Reference Range Interpretation Comments PROTIME (BEAKER) (test code = 48.1 seconds 11.7-14.7 H 759) INR (BEAKER) (test code = 370) 5.2 <=5.9 RECOMMENDED COUMADIN/WARFARIN INR THERAPY RANGESSTANDARD DOSE: 2.0 - 3.0 Includes: PROPHYLAXIS forvenous thrombosis, systemic embolization; TREATMENT for venous thrombosis and/or pulmonary embolus.HIGH RISK: Target INR is 2.5-3.5 for patients with mechanical heart valves.POCT-GLUCOSE [id number] 21:38:00 Test Item Value Reference Range Interpretation Comments POC-GLUCOSE METER 105 mg/dL 70-110 TESTED AT [facility] 6720 ([facility]ARR[facility]) (test code = [place] 1538) [address] XR Ankle Complete 3+ Views [id number] 22:30:07Patient: CALEB LUGO Date/Time05/12/2018 22:24 CDTReason for [...] Signature): 05/12/2018 10:30 pmXR Chest 1 View [id number] 09:48:17Patient: CALEB LUGO Date/Time05/12/2018 09:30 CDTReason for [...] FSigned (Electronic Signature): 05/12/2018 9:48 amBASIC METABOLIC [id number] 11:15:00 Test Item Value Reference Range Interpretation [...] (BEAKER) (test code = 700) BASIC METABOLIC [id number] 02:55:00 Test Item Value Reference Range Interpretation [...] H (BEAKER) (test code = 700) TROPONIN [id number] 02:30:00 Test Item Value Reference Range Interpretation [...] failure, acidosis, acute neurological disease, and persistent tachyarrhythmia.[id number] 02:21:00 Test Item Value Reference Range Interpretation Comments MAGNESIUM (BEAKER) (test code = 1.8 mg/dL 1.6-2.6 627) CBC W/PLT COUNT & AUTO [id number] 00:24:00 Test Item Value Reference Range Interpretation [...] 0-1 PERCENT (BEAKER) (test code = 2801) [id number] 00:01:00 Test Item Value Reference Range Interpretation [...] mechanical heart valves.RAD, CHEST, 1 VIEW, NON [id number] 23:39:00Reason for exam:->chest painShould this be performed [...] findings worrisome for fluid overload-heart failure. Signed: Olaf Wan MDReport Verified Date/Time: 02/23/2018 23:39:58 Reading Location: [address] Reading Room POCT-GLUCOSE [id number] 19:47:00 Test Item Value Reference Range Interpretation Comments POC-GLUCOSE METER 94 mg/dL 70-110 TESTED AT [facility] 6720 ([facility]) (test code = [facility]ER [facility]ul [facility] [address] 1538) POCT-GLUCOSE [id number] 17:07:00 Test Item Value Reference Range Interpretation Comments POC-GLUCOSE METER 176 mg/dL 70-110 H TESTED AT [place] [address] ([facility]) (test code = FOSTER Paul [facility] 1538) [address] POCT-GLUCOSE [id number] 12:31:00 Test Item Value Reference Range Interpretation Comments POC-GLUCOSE METER 84 mg/dL 70-110 TESTED AT [place] [address] ([facility]) (test code = FOSTER Paul [facility] [address] 1538) [id number] 10:40:00 Test Item Value Reference Range Interpretation Comments PARTIAL THROMBOPLASTIN TIME 88.5 seconds 22.5-36.0 H ([facility]) (test code = 760) OCCULT BLOOD, [id number] 09:36:00 Test Item Value Reference Range Interpretation Comments FECAL OCCULT BLOOD ([facility]) (test Negative Negative code = 618) POCT-GLUCOSE [id number] 08:51:00 Test Item Value Reference Range Interpretation Comments POC-GLUCOSE METER 223 mg/dL 70-110 H TESTED AT [place] [address] ([facility]) (test code = MARIA GSC Laura [facility] 1538) [address] [id number] 04:14:00 Test Item Value Reference Range Interpretation Comments PARTIAL THROMBOPLASTIN TIME 80.3 seconds 22.5-36.0 H ([facility]) (test code = 760) While on warfarin.PROTHROMBIN [id number] 04:13:00 Test Item Value Reference Range Interpretation Comments PROTIME ([facility]) (test code = 23.8 seconds 11.7-14.7 H 759) INR ([facility]) (test code = 370) 2.1 <=5.9 RECOMMENDED COUMADIN/WARFARIN INR THERAPY RANGESSTANDARD DOSE: 2.0 - 3.0 Includes: PROPHYLAXIS forvenous thrombosis, systemic embolization; TREATMENT for venous thrombosis and/or pulmonary embolus.HIGH RISK: Target INR is 2.5-3.5 for patients with mechanical heart valves.While on warfarin.POCT-GLUCOSE METER 2018-02-02 21:56:00 Test Item Value Reference Range Interpretation Comments POC-GLUCOSE METER 206 mg/dL 70-110 H TESTED AT [place] [address] (BEAKER) (test code = [place]OSTER [place] 1538) [address] [id number] 19:50:00 Test Item Value Reference Range Interpretation Comments PARTIAL THROMBOPLASTIN TIME 59.7 seconds 22.5-36.0 H (BEAKER) (test code = 760) POCT-GLUCOSE [id number] 17:00:00 Test Item Value Reference Range Interpretation Comments POC-GLUCOSE METER 183 mg/dL 70-110 H TESTED AT [place] [address] (BEAKER) (test code = FOST[place] 1538) [address] [id number] 12:45:00 Test Item Value Reference Range Interpretation Comments PARTIAL THROMBOPLASTIN TIME 89.5 seconds 22.5-36.0 H (BEAKER) (test code = 760) CBC W/PLT COUNT & AUTO [id number] 12:04:00 Test Item Value Reference Range Interpretation [...] WBC 0-0 (test code = 413) POCT-GLUCOSE [id number] 11:54:00 Test Item Value Reference Range Interpretation Comments POC-GLUCOSE METER 124 mg/dL 70-110 H TESTED AT [facility] 6720 (BEAKER) (test code = [place] 1538) [address] POCT-GLUCOSE [id number] 07:48:00 Test Item Value Reference Range Interpretation Comments POC-GLUCOSE METER 178 mg/dL 70-110 H TESTED AT [facility] 6720 (BEAKER) (test code = FOST[place] 1538) [address] BASIC METABOLIC [id number] 05:15:00 Test Item Value Reference Range Interpretation [...] S NOT APPLICABLE FOR DIALYSIS PATIEN TS. [id number] 04:51:00 Test Item Value Reference Range Interpretation Comments MAGNESIUM (BEAKER) (test code = 1.8 mg/dL 1.6-2.6 627) [id number] 04:36:00 Test Item Value Reference Range Interpretation Comments PARTIAL THROMBOPLASTIN TIME 91.9 seconds 22.5-36.0 H (BEAKER) (test code = 760) While on warfarin.PROTHROMBIN TIME/[id number] 04:34:00 Test Item Value Reference Range Interpretation [...] METER 126 mg/dL 70-110 H TESTED AT [place] [address] ([facility]) (test code = [facility] Paul [facility] 1538) [address] [id number] 21:23:00 Test Item Value Reference Range Interpretation Comments PARTIAL THROMBOPLASTIN TIME 84.1 seconds 22.5-36.0 H ([facility]) (test code = 760) POCT-GLUCOSE [id number] 16:57:00 Test Item Value Reference Range Interpretation Comments POC-GLUCOSE METER 156 mg/dL 70-110 H TESTED AT [place] [address] ([facility]) (test code = [facility] Paul [facility] 1538) [address] [id number] 14:11:00 Test Item Value Reference Range Interpretation Comments PARTIAL THROMBOPLASTIN TIME 96.5 seconds 22.5-36.0 H ([facility]) (test code = 760) POCT-GLUCOSE [id number] 08:24:00 Test Item Value Reference Range Interpretation Comments POC-GLUCOSE METER 169 mg/dL 70-110 H TESTED AT [place] [address] ([facility]) (test code = [place]ER [place] 1538) [address] POCT-GLUCOSE [id number] 06:49:00 Test Item Value Reference Range Interpretation Comments POC-GLUCOSE METER 172 mg/dL 70-110 H TESTED AT [place] [address] ([facility]) (test code = F[place]ER [place] 1538) [address] [id number] 04:59:00 Test Item Value Reference Range Interpretation Comments PARTIAL THROMBOPLASTIN TIME 64.7 seconds 22.5-36.0 H ([facility]) (test code = 760) While on warfarin.PROTHROMBIN [id number] 04:57:00 Test Item Value Reference Range Interpretation Comments PROTIME ([facility]) (test code = 17.5 seconds 11.7-14.7 H 759) INR ([facility]) (test code = 370) 1.4 <=5.9 RECOMMENDED COUMADIN/WARFARIN INR THERAPY RANGESSTANDARD DOSE: 2.0 - 3.0 Includes: PROPHYLAXIS forvenous thrombosis, systemic embolization; TREATMENT for venous thrombosis and/or pulmonary embolus.HIGH RISK: Target INR is 2.5-3.5 for patients with mechanical heart valves.While on warfarin.[id number] 21:55:00 Test Item Value Reference Range Interpretation Comments PARTIAL THROMBOPLASTIN TIME 68.8 seconds 22.5-36.0 H ([facility]) (test code = 760) [id number] 13:54:00 Test Item Value Reference Range Interpretation Comments PARTIAL THROMBOPLASTIN TIME 51.7 seconds 22.5-36.0 H ([facility]) (test code = 760) POCT-GLUCOSE [id number] 11:56:00 Test Item Value Reference Range Interpretation Comments POC-GLUCOSE METER 101 mg/dL 70-110 TESTED AT [place] [address] ([facility]) (test code = [facility] 1538) [address] POCT-GLUCOSE [id number] 07:58:00 Test Item Value Reference Range Interpretation Comments POC-GLUCOSE METER 111 mg/dL 70-110 H TESTED AT [place] [address] ([facility]) (test code = [facility] 1538) [address] BASIC METABOLIC [id number] 05:35:00 Test Item Value Reference Range Interpretation Comments SODIUM (BEAKER) 132 meq/L 136-145 L (test code = 381) POTASSIUM (BEAKER) 3.9 meq/L 3.5-5.1 (test code = 379) CHLORIDE (BEAKER) 95 meq/L 98-107 L (test code = 382) CO2 (BEAKER) (test 26 meq/L 22-29 code = 355) BLOOD UREA NITROGEN 29 mg/dL 7-21 H ([facility]) (test code = 354) CREATININE (AKER) 5.57 mg/dL 0.57-1.25 H (test code = 358) GLUCOSE RANDOM 148 mg/dL 70-105 H ([facility]) (test code = 652) CALCIUM (BEAKER) 8.2 mg/dL 8.4-10.2 L (test code = 697) EGFR (BEAKER) (test 13 mL/min/1.73 ESTIMA JAYLA GFR IS code = 1092) sq m NOT ACCURATE CREATININE CLEARANCE IN PREDICTING GLOMERULAR FILTRATION RATE . ESTIMATED GFR I S NOT APPLICABLE FOR DIALYSIS PATIEN TS. [id number] 05:34:00 Test Item Value Reference Range Interpretation Comments PHOSPHORUS (BEAKER) (test code = 4.2 mg/dL 2.3-4.7 604) [id number] 05:34:00 Test Item Value Reference Range Interpretation Comments MAGNESIUM (BEAKER) (test code = 1.7 mg/dL 1.6-2.6 627) PROTHROMBIN [id number] 05:24:00 Test Item Value Reference Range Interpretation Comments PROTIME (BEAKER) (test code = 18.8 seconds 11.7-14.7 H 759) INR (BEAKER) (test code = 370) 1.6 <=5.9 RECOMMENDED COUMADIN/WARFARIN INR THERAPY RANGESSTANDARD DOSE: 2.0 - 3.0 Includes: PROPHYLAXIS forvenous thrombosis, systemic embolization; TREATMENT for venous thrombosis and/or pulmonary embolus.HIGH RISK: Target INR is 2.5-3.5 for patients with mechanical heart valves.[id number] 05:05:00 Test Item Value Reference Range Interpretation Comments PARTIAL THROMBOPLASTIN TIME 96.6 seconds 22.5-36.0 H (BEAKER) (test code = 760) CBC W/PLT COUNT & AUTO [id number] 04:54:00 Test Item Value Reference Range Interpretation [...] (BEAKER) (test code = 2801) OCCULT BLOOD, [id number] 22:44:00 Test Item Value Reference Range Interpretation Comments FECAL OCCULT BLOOD (BEAKER) (test Positive Negative A code = 618) [id number] 21:14:00 Test Item Value Reference Range Interpretation Comments PARTIAL THROMBOPLASTIN TIME 69.1 seconds 22.5-36.0 H (BEAKER) (test code = 760) POCT-GLUCOSE [id number] 20:49:00 Test Item Value Reference Range Interpretation Comments POC-GLUCOSE METER 160 mg/dL 70-110 H TESTED AT [facility] 6720 (BEAKER) (test code = FOSTER [place] 1538) [address] POCT-GLUCOSE [id number] 17:59:00 Test Item Value Reference Range Interpretation Comments POC-GLUCOSE METER 128 mg/dL 70-110 H TESTED AT [facility] 6720 [facility] (test code = [facility]ER Paul [facility] 1538) [address] POCT-GLUCOSE [id number] 13:31:00 Test Item Value Reference Range Interpretation Comments POC-GLUCOSE METER 70 mg/dL 70-110 TESTED AT [place] [address] ([facility]) (test code = F[facility]ER Paul [facility] [address] 1538) [id number] 13:16:00 Test Item Value Reference Range Interpretation Comments PARTIAL THROMBOPLASTIN TIME 78.3 seconds 22.5-36.0 H (BEAKER) (test code = 760) POCT-GLUCOSE [id number] 12:47:00 Test Item Value Reference Range Interpretation Comments POC-GLUCOSE METER 49 mg/dL 70-110 L TESTED AT [place] [address] ([facility]) (test code = F[facility]ER Paul [facility] [address] 1538) POCT-GLUCOSE [id number] 09:05:00 Test Item Value Reference Range Interpretation Comments POC-GLUCOSE METER 306 mg/dL 70-110 H TESTED AT [place] [address] ([facility]) (test code = F[facility]ER Paul [facility] 1538) [address] OCCULT BLOOD, [id number] 06:52:00 Test Item Value Reference Range Interpretation Comments FECAL OCCULT BLOOD (BEAKER) (test Positive Negative A code = 618) [id number] 05:42:00 Test Item Value Reference Range Interpretation [...] 20-55 (test code = 2590) BASIC METABOLIC [id number] 03:53:00 Test Item Value Reference Range Interpretation [...] S NOT APPLICABLE FOR DIALYSIS PATIEN TS. [id number] 03:51:00 Test Item Value Reference Range Interpretation Comments PHOSPHORUS (BEAKER) (test code = 3.2 mg/dL 2.3-4.7 604) [id number] 03:51:00 Test Item Value Reference Range Interpretation Comments PARTIAL THROMBOPLASTIN TIME 122.0 seconds 22.5-36.0 H (BEAKER) (test code = 760) While on warfarin.PROTHROMBIN [id number] 03:48:00 Test Item Value Reference Range Interpretation Comments PROTIME (BEAKER) (test code = 16.3 seconds 11.7-14.7 H 759) INR (BEAKER) (test code = 370) 1.3 <=5.9 RECOMMENDED COUMADIN/WARFARIN INR THERAPY RANGESSTANDARD DOSE: 2.0 - 3.0 Includes: PROPHYLAXIS forvenous thrombosis, systemic embolization; TREATMENT for venous thrombosis and/or pulmonary embolus.HIGH RISK: Target INR is 2.5-3.5 for patients with mechanical heart valves.While on warfarin.[id number] 03:44:00 Test Item Value Reference Range Interpretation Comments MAGNESIUM (BEAKER) (test code = 1.7 mg/dL 1.6-2.6 627) CBC W/PLT COUNT & AUTO [id number] 03:38:00 Test Item Value Reference Range Interpretation [...] 417) IMMATURE GRANULOCYTES-RELATIVE 1 % 0-1 PERCENT ([facility]) (test code = 2801) POCT-GLUCOSE [id number] 23:35:00 Test Item Value Reference Range Interpretation Comments POC-GLUCOSE METER 149 mg/dL 70-110 H TESTED AT [facility] 67 ([facility]) (test code = [facility]ER Paul [facility] 1538) [address] [id number] 20:08:00 Test Item Value Reference Range Interpretation Comments PARTIAL THROMBOPLASTIN TIME 55.6 seconds 22.5-36.0 H ([facility]) (test code = 760) [id number] 15:10:00 Test Item Value Reference Range Interpretation Comments PARTIAL THROMBOPLASTIN TIME 81.4 seconds 22.5-36.0 H ([facility]) (test code = 760) POCT-GLUCOSE [id number] 11:58:00 Test Item Value Reference Range Interpretation Comments POC-GLUCOSE METER 124 mg/dL 70-110 H TESTED AT [place] [address] ([facility]) (test code = [facility]ER Paul [facility] 1538) [address] RAD, CHEST, 1 VIEW, NON [id number] 08:59:00Reason for exam:->s/p mvrShould this be performed at the bedside?->YesFINAL REPORT Chest one view compared to January 24 Discussion: Left IJ line, atrial appendage clip, cardiac valve replacement noted. Mild interstitial congestion. No gross effusion or pneumothorax. IMPRESSIONS: No significant change Signed: Larry Colindres Verified Date/Time:01/29/2018 08:59:39 Reading Location: [facility] Radiology Reading Room POCT-GLUCOSE [id number] 07:41:00 Test Item Value Reference Range Interpretation Comments POC-GLUCOSE METER 113 mg/dL 70-110 H TESTED AT [facility] 67 ([facility]) (test code = [facility]ER Paul [facility] 1538) [address] [id number] 07:23:00 Test Item Value Reference Range Interpretation Comments PARTIAL THROMBOPLASTIN TIME 89.8 seconds 22.5-36.0 H (BEAKER) (test code = 760) BASIC METABOLIC [id number] 06:05:00 Test Item Value Reference Range Interpretation [...] NOT APPLICABLE FOR DIALYSIS PATIEN TS. PROTHROMBIN [id number] 05:59:00 Test Item Value Reference Range Interpretation Comments PROTIME (BEAKER) (test code = 17.0 seconds 11.7-14.7 H 759) INR (BEAKER) (test code = 370) 1.4 <=5.9 RECOMMENDED COUMADIN/WARFARIN INR THERAPY RANGESSTANDARD DOSE: 2.0 - 3.0 Includes: PROPHYLAXIS forvenous thrombosis, systemic embolization; TREATMENT for venous thrombosis and/or pulmonary embolus.HIGH RISK: Target INR is 2.5-3.5 for patients with mechanical heart valves.While on warfarin.[id number] 05:56:00 Test Item Value Reference Range Interpretation Comments PHOSPHORUS (BEAKER) (test code = 5.3 mg/dL 2.3-4.7 H 604) [id number] 05:56:00 Test Item Value Reference Range Interpretation Comments MAGNESIUM (BEAKER) (test code = 1.9 mg/dL 1.6-2.6 627) CBC W/PLT COUNT & AUTO [id number] 05:38:00 Test Item Value Reference Range Interpretation [...] 0-1 PERCENT (BEAKER) (test code = 2801) [id number] 01:07:00 Test Item Value Reference Range Interpretation Comments PARTIAL THROMBOPLASTIN TIME 63.5 seconds 22.5-36.0 H (BEAKER) (test code = 760) [id number] 18:24:00 Test Item Value Reference Range Interpretation Comments PARTIAL THROMBOPLASTIN TIME 56.6 seconds 22.5-36.0 H (BEAKER) (test code = 760) POCT-GLUCOSE [id number] 18:14:00 Test Item Value Reference Range Interpretation Comments POC-GLUCOSE METER 101 mg/dL 70-110 TESTED AT [facility] 67 (BEAKER) (test code = F[place]ER Paul [place] 1538) [address] [id number] 13:57:00 Test Item Value Reference Range Interpretation Comments PARTIAL THROMBOPLASTIN TIME 122.3 seconds 22.5-36.0 H (BEAKER) (test code = 760) POCT-GLUCOSE [id number] 13:08:00 Test Item Value Reference Range Interpretation Comments POC-GLUCOSE METER 105 mg/dL 70-110 TESTED AT [facility] 67 (BEAKER) (test code = FOSTER Paul [facility] 1538) [address] BASIC METABOLIC [id number] 04:31:00 Test Item Value Reference Range Interpretation [...] S NOT APPLICABLE FOR DIALYSIS PATIEN TS. [id number] 04:28:00 Test Item Value Reference Range Interpretation Comments PHOSPHORUS (BEAKER) (test code = 3.9 mg/dL 2.3-4.7 604) [id number] 04:28:00 Test Item Value Reference Range Interpretation Comments MAGNESIUM (BEAKER) (test code = 1.7 mg/dL 1.6-2.6 627) HEPATIC FUNCTION [id number] 04:28:00 Test Item Value Reference Range Interpretation [...] (test code = 33 U/L 6-55 347) [id number] 04:20:00 Test Item Value Reference Range Interpretation Comments PARTIAL THROMBOPLASTIN TIME 106.2 seconds 22.5-36.0 H (BEAKER) (test code = 760) While on warfarin.PROTHROMBIN [id number] 04:15:00 Test Item Value Reference Range Interpretation [...] valves.While on warfarin.CBC W/PLT COUNT & AUTO [id number] 04:05:00 Test Item Value Reference Range Interpretation [...] IMMATURE GRANULOCYTES-RELATIVE 2 % 0-1 H PERCENT ([facility]) (test code = 2801) POCT-GLUCOSE [id number] 00:29:00 Test Item Value Reference Range Interpretation Comments POC-GLUCOSE METER 119 mg/dL 70-110 H TESTED AT [place] [address] ([facility]) (test code = [place]ER [place] 1538) [address] [id number] 00:24:00 Test Item Value Reference Range Interpretation Comments PARTIAL THROMBOPLASTIN TIME 72.4 seconds 22.5-36.0 H ([facility]) (test code = 760) POCT-GLUCOSE [id number] 18:33:00 Test Item Value Reference Range Interpretation Comments POC-GLUCOSE METER 158 mg/dL 70-110 H TESTED AT [place] [address] ([facility]) (test code = FOSTER [place] 1538) [address] [id number] 18:22:00 Test Item Value Reference Range Interpretation Comments PARTIAL THROMBOPLASTIN TIME 78.6 seconds 22.5-36.0 H ([facility]) (test code = 760) POCT-GLUCOSE [id number] 12:20:00 Test Item Value Reference Range Interpretation Comments POC-GLUCOSE METER 110 mg/dL 70-110 TESTED AT [place] [address] ([facility]) (test code = [place] 1538) [address] [id number] 12:04:00 Test Item Value Reference Range Interpretation Comments PARTIAL THROMBOPLASTIN TIME 98.0 seconds 22.5-36.0 H ([facility]) (test code = 760) [id number] 04:11:00 Test Item Value Reference Range Interpretation Comments PROTIME ([facility]) (test code = 15.2 seconds 11.7-14.7 H 759) INR ([facility]) (test code = 370) 1.2 <=5.9 PARTIAL THROMBOPLASTIN TIME 67.9 seconds 22.5-36.0 H ([facility]) (test code = 760) RECOMMENDED COUMADIN/WARFARIN INR THERAPY RANGESSTANDARD DOSE: 2.0 - 3.0 Includes: PROPHYLAXIS forvenous thrombosis, systemic embolization; TREATMENT for venous thrombosis and/or pulmonary embolus.HIGH RISK: Target INR is 2.5-3.5 for patients with mechanical heart valves.While on warfarin.While on warfarin. PROTHROMBIN [id number] 04:10:00 Test Item Value Reference Range Interpretation Comments PROTIME (BEAKER) (test code = 15.2 seconds 11.7-14.7 H 759) INR (BEAKER) (test code = 370) 1.2 <=5.9 RECOMMENDED COUMADIN/WARFARIN INR THERAPY RANGESSTANDARD DOSE: 2.0 - 3.0 Includes: PROPHYLAXIS forvenous thrombosis, systemic embolization; TREATMENT for venous thrombosis and/or pulmonary embolus.HIGH RISK: Target INR is 2.5-3.5 for patients with mechanical heart valves.BASIC METABOLIC [id number] 03:53:00 Test Item Value Reference Range Interpretation [...] PATIEN TS. CBC W/PLT COUNT & AUTO [id number] 03:50:00 Test Item Value Reference Range Interpretation [...] H PERCENT (BEAKER) (test code = 2807) [id number] 03:45:00 Test Item Value Reference Range Interpretation Comments PHOSPHORUS (BEAKER) (test code = 4.7 mg/dL 2.3-4.7 604) [id number] 03:45:00 Test Item Value Reference Range Interpretation Comments MAGNESIUM (BEAKER) (test code = 2.0 mg/dL 1.6-2.6 627) HEPATIC FUNCTION [id number] 03:45:00 Test Item Value Reference Range Interpretation [...] (test code = 36 U/L 6-55 347) [id number] 22:16:00 Test Item Value Reference Range Interpretation Comments PARTIAL THROMBOPLASTIN TIME 60.7 seconds 22.5-36.0 H (BEAKER) (test code = 760) POCT-GLUCOSE [id number] 18:32:00 Test Item Value Reference Range Interpretation Comments POC-GLUCOSE METER 125 mg/dL 70-110 H TESTED AT [facility] 6720 (BEAKER) (test code = FOSTER [place] 1538) [address] CBC (HEMOGRAM ONLY)[id number] 17:21:00 Test Item Value [...] (BEAKER) (test code = 413) BASIC METABOLIC [id number] 07:16:00 Test Item Value Reference Range Interpretation [...] S NOT APPLICABLE FOR DIALYSIS PATIEN TS. [id number] 07:13:00 Test Item Value Reference Range Interpretation Comments PHOSPHORUS (BEAKER) (test code = 4.3 mg/dL 2.3-4.7 604) [id number] 07:13:00 Test Item Value Reference Range Interpretation Comments MAGNESIUM (BEAKER) (test code = 2.0 mg/dL 1.6-2.6 627) HEPATIC FUNCTION [id number] 07:13:00 Test Item Value Reference Range Interpretation [...] (test code = 37 U/L 6-55 347) [id number] 07:12:00 Test Item Value Reference Range Interpretation [...] PERCENT (BEAKER) (test code = 2801) BLOOD [id number] 00:00:00 Test Item Value Reference Range Interpretation Comments CULTURE (BEAKER) (test No growth in 5 days code = 1095) BLOOD [id number] 00:00:00 Test Item Value Reference Range Interpretation Comments CULTURE (BEAKER) (test No growth in 5 days code = 1095) POCT-GLUCOSE [id number] 23:37:00 Test Item Value Reference Range Interpretation Comments POC-GLUCOSE METER 87 mg/dL 70-110 TESTED AT [facility] 6720 (BEAKER) (test code = [place] [address] 1538) [id number] 23:06:00 Test Item Value Reference Range Interpretation Comments PARTIAL THROMBOPLASTIN TIME 81.8 seconds 22.5-36.0 H (BEAKER) (test code = 760) POCT-GLUCOSE [id number] 20:42:00 Test Item Value Reference Range Interpretation Comments POC-GLUCOSE METER 193 mg/dL 70-110 H TESTED AT [facility] 6720 ([facility] (test code = [place] 1538) [address] HEMOGLOBIN AND [id number] 17:40:00 Test Item Value Reference Range Interpretation Comments HEMOGLOBIN (BEAKER) (test code = 8.4 GM/DL 13.7-17.5 L 410) HEMATOCRIT (BEAKER) (test code = 25.4 % 40.1-51.0 L 411) [id number] 13:06:00 Test Item Value Reference Range Interpretation Comments PARTIAL THROMBOPLASTIN TIME 61.4 seconds 22.5-36.0 H (BEAKER) (test code = 760) POCT-GLUCOSE [id number] 12:56:00 Test Item Value Reference Range Interpretation Comments POC-GLUCOSE METER 116 mg/dL 70-110 H TESTED AT [place] [address] ([facility] (test code = [place] 1538) [address] [id number] 06:43:00 Test Item Value Reference Range Interpretation [...] 37 % 20-55 (test code = 2590) [id number] 05:32:00 Test Item Value Reference Range Interpretation Comments PARTIAL THROMBOPLASTIN TIME 63.7 seconds 22.5-36.0 H (BEAKER) (test code = 760) BASIC METABOLIC [id number] 05:03:00 Test Item Value Reference Range Interpretation [...] APPLICABLE FOR DIALYSIS PATIEN TS. HEPATIC FUNCTION [id number] 05:00:00 Test Item Value Reference Range Interpretation [...] (test code = 41 U/L 6-55 347) [id number] 04:40:00 Test Item Value Reference Range Interpretation [...] 0-0 (BEAKER) (test code = 413) POCT-GLUCOSE [id number] 00:30:00 Test Item Value Reference Range Interpretation Comments POC-GLUCOSE METER 112 mg/dL 70-110 H TESTED AT [facility] [address] (BEAKER) (test code = [place] 1538) [address] CBC W/PLT COUNT & AUTO [id number] 19:16:00 Test Item Value Reference Range Interpretation [...] % 0-1 PERCENT (BEAKER) (test code = 4066) POCT-GLUCOSE [id number] 18:27:00 Test Item Value Reference Range Interpretation Comments POC-GLUCOSE METER 102 mg/dL 70-110 TESTED AT [facility] [address] (BEAKER) (test code = [place] 1538) [address] POCT-GLUCOSE [id number] 13:01:00 Test Item Value Reference Range Interpretation Comments POC-GLUCOSE METER 119 mg/dL 70-110 H TESTED AT [facility] 6720 (BEAKER) (test code = F[facility] 1538) [address] RAD, CHEST, 1 VIEW, NON [id number] 10:59:00Reason for exam:->ptxShould this be performed at [...] tube. Mild increase in pulmonary opacities. Signed: Jori Mejiaeport Verified Date/Time: 01/24/2018 10:59:29 Reading Location: [facility] Diagnostic Imaging Reading Room - [place] [address] BRONCHIAL CULTURE + GRAM STAIN 2018-01-24 08:53:00 Test Item Value Reference Range Interpretation Comments CULTURE (BEAKER) 2+ Normal respiratory (test code = 1095) pete present GRAM STAIN RESULT 4+ White blood cells (BEAKER) (test code = seen 1123) GRAM STAIN RESULT No organisms seen (BEAKER) (test code = 12600) POCT-GLUCOSE [id number] 06:28:00 Test Item Value Reference Range Interpretation Comments POC-GLUCOSE METER 119 mg/dL 70-110 H TESTED AT [facility] 6720 (BEAKER) (test code = [facility] 1538) [address] BASIC METABOLIC [id number] 04:41:00 Test Item Value Reference Range Interpretation [...] WBC 0-0 (BEAKER) (test code = 413) [id number] 04:21:00 Test Item Value Reference Range Interpretation Comments MAGNESIUM (BEAKER) (test code = 2.0 mg/dL 1.6-2.6 627) HEPATIC FUNCTION [id number] 04:21:00 Test Item Value Reference Range Interpretation [...] = 36 U/L 6-55 347) Specimen slightly [id number] 04:13:00 Test Item Value Reference Range Interpretation Comments PARTIAL THROMBOPLASTIN TIME 72.1 seconds 22.5-36.0 H (BEAKER) (test code = 760) BLOOD GAS, [id number] 04:13:00 Test Item Value Reference Range Interpretation [...] (test code = 1819) 100.0 % POCT-GLUCOSE [id number] 00:08:00 Test Item Value Reference Range Interpretation Comments POC-GLUCOSE METER 150 mg/dL 70-110 H TESTED AT [facility] 6720 (BEAKER) (test code = [place] 1538) [address] POCT-GLUCOSE [id number] 18:45:00 Test Item Value Reference Range Interpretation Comments POC-GLUCOSE METER 162 mg/dL 70-110 H TESTED AT [facility] 6720 (BEAKER) (test code = [place] 1538) [address] POCT-GLUCOSE [id number] 13:14:00 Test Item Value Reference Range Interpretation Comments POC-GLUCOSE METER 176 mg/dL 70-110 H TESTED AT [facility] 6720 (BEAKER) (test code = [place] 1538) [address] POCT-GLUCOSE [id number] 10:44:00 Test Item Value Reference Range Interpretation Comments POC-GLUCOSE METER 146 mg/dL 70-110 H TESTED AT [facility] 6720 (BEAKER) (test code = [place] 1538) [address] BLOOD GAS, [id number] 10:32:00 Test Item Value Reference Range Interpretation [...] 40.0 % RAD, CHEST, 1 VIEW, NON [id number] 09:14:00Reason for exam:->ptxShould this be performed at [...] MDReport Verified Date/Time: 01/23/2018 09:14:48 Reading Location: [facility] Radiology Reading Room Electronically sign ed by: KYLE ROME M.D. on 01/23/2018 09:14 AMBLOOD [id number] 08:09:00 Test Item Value Reference Range Interpretation Comments CULTURE (BEAKER) A From Aerobi c Bottle (test code = Only [place] 1095) species GRAM STAIN From aerobic RESULT (BEAKER) bottle only: gram (test code = positive rods 1123) NOT DETECTEDPanel is negative for TeradiciFirTimbre BCID-detectable organisms. Please refer to traditional culture and sensitivity results as they become available.Other organisms and resistance markers not contained in this PCR panel cannot be excluded and follow-up of traditional culture results is required.This sample was tested at the [facility] Clinical Microbiology Laboratory using the [employer] Blood Culture ID Panel. This test is FDA cleared for in vitro diagnostic use and has been verified and approved by the [facility] Clinical Microbiology laboratory for clinical use. Reference Range: Not DetectedBLOOD GAS, [id number] 04:45:00 Test Item Value Reference Range Interpretation [...] code = 1819) 40.0 % BASIC METABOLIC [id number] 04:39:00 Test Item Value Reference Range Interpretation [...] APPLICABLE FOR DIALYSIS PATIEN TS. Specimen slightly [id number] 04:35:00 Test Item Value Reference Range Interpretation Comments MAGNESIUM (BEAKER) (test code = 1.8 mg/dL 1.6-2.6 627) HEPATIC FUNCTION [id number] 04:35:00 Test Item Value Reference Range Interpretation [...] = 40 U/L 6-55 347) Specimen slightly [id number] 04:18:00 Test Item Value Reference Range Interpretation [...] WBC 0-0 (test code = 413) POCT-GLUCOSE [id number] 00:52:00 Test Item Value Reference Range Interpretation Comments POC-GLUCOSE METER 145 mg/dL 70-110 H TESTED AT [place] [address] ([facility]) [facility] [address] BLOOD [id number] 00:00:00 Test Item Value Reference Range Interpretation Comments CULTURE ([facility]) (test No growth in 5 days code = 1095) POCT-GLUCOSE [id number] 18:17:00 Test Item Value Reference Range Interpretation Comments POC-GLUCOSE METER 97 mg/dL 70-110 TESTED AT [place] [address] ([facility]) (test [facility] = [facility] [address] 1538) POCT-GLUCOSE [id number] 13:26:00 Test Item Value Reference Range Interpretation Comments POC-GLUCOSE METER 138 mg/dL 70-110 H TESTED AT [place] [address] ([facility]) (test [facility] = [facility] 1538) [address] BLOOD GAS, [id number] 10:32:00 Test Item Value Reference Range Interpretation Comments PH ARTERIAL (AKER) (test code = 7.43 7.35-7.45 383) PCO2 [...] (test code = 1819) 40.0 % POCT-GLUCOSE [id number] 06:21:00 Test Item Value Reference Range Interpretation Comments POC-GLUCOSE METER 138 mg/dL 70-110 H TESTED AT [facility] 6720 (BEAKER) (test code = [facility] 1538) [address] BASIC METABOLIC [id number] 04:25:00 Test Item Value Reference Range Interpretation [...] APPLICABLE FOR DIALYSIS PATIEN TS. Specimen slightly [id number] 04:24:00 Test Item Value Reference Range Interpretation Comments MAGNESIUM (BEAKER) (test code = 2.1 mg/dL 1.6-2.6 627) HEPATIC FUNCTION [id number] 04:24:00 Test Item Value Reference Range Interpretation [...] /100 WBC 0-0 (test code = 413) [id number] 04:07:00 Test Item Value Reference Range Interpretation Comments PARTIAL THROMBOPLASTIN TIME 80.2 seconds 22.5-36.0 H (BEAKER) (test code = 760) BLOOD GAS, [id number] 04:06:00 Test Item Value Reference Range Interpretation [...] 40.0 % RAD, CHEST, 1 VIEW, NON [id number] 03:32:00Reason for exam:->ptxShould this be performed at [...] MDReport Verified Date/Time: 01/22/2018 03:32:38 Reading Location: [address] Body Reading Room POCT-GLUCOSE [id number] 00:43:00 Test Item Value Reference Range Interpretation Comments POC-GLUCOSE METER 102 mg/dL 70-110 TESTED AT [facility] 6720 (BEAKER) (test code = [place] 1538) [address] [id number] 17:31:00 Test Item Value Reference Range Interpretation Comments PARTIAL THROMBOPLASTIN TIME 65.0 seconds 22.5-36.0 H ([facility]) (test code = 760) POCT-GLUCOSE [id number] 17:24:00 Test Item Value Reference Range Interpretation Comments POC-GLUCOSE METER 171 mg/dL 70-110 H TESTED AT [place] [address] ([facility]) (test code = [place] 1538) [address] POCT-GLUCOSE [id number] 13:01:00 Test Item Value Reference Range Interpretation Comments POC-GLUCOSE METER 144 mg/dL 70-110 H TESTED AT [place] [address] ([facility]) (test code = [place] 1538) [address] [id number] 11:12:00 Test Item Value Reference Range Interpretation Comments PARTIAL THROMBOPLASTIN TIME 67.9 seconds 22.5-36.0 H ([facility]) (test code = 760) RAD, CHEST, 1 VIEW, NON [id number] 08:01:00Reason for exam:->ptxShould this be performed at [...] MDReport Verified Date/Time: 01/21/2018 08:01:07 Reading Location: [facility] Radiology Reading Room POCT-GLUCOSE [id number] 06:50:00 Test Item Value Reference Range Interpretation Comments POC-GLUCOSE METER 149 mg/dL 70-110 H TESTED AT [facility] 6720 ([facility]) (test code = [place]ER Paul [place] 1538) [address] CBC (HEMOGRAM ONLY)2018-01-21 04:20:00 Test Item Value [...] /100 WBC 0-0 (test code = 413) [id number] 04:03:00 Test Item Value Reference Range Interpretation Comments PARTIAL THROMBOPLASTIN TIME 51.2 seconds 22.5-36.0 H (BEAKER) (test code = 760) BASIC METABOLIC [id number] 04:01:00 Test Item Value Reference Range Interpretation [...] APPLICABLE FOR DIALYSIS PATIEN TS. Specimen moderately [id number] 03:59:00 Test Item Value Reference Range Interpretation Comments MAGNESIUM (BEAKER) (test code = 2.0 mg/dL 1.6-2.6 627) HEPATIC FUNCTION [id number] 03:59:00 Test Item Value Reference Range Interpretation [...] U/L 6-55 347) Specimen moderately ictericVANCOMYCIN LEVEL, [id number] 03:57:00 Test Item Value Reference Range Interpretation Comments VANCOMYCIN RANDOM (BEAKER) (test 18.3 ug/mL code = 523) Reference Range: No NormalsOXYGEN SATURATION, [id number] 03:32:00 Test Item Value Reference Range Interpretation Comments O2 SATURATION (MEASURED) (BEAKER) 86.3 % (test code = 1455) BLOOD GAS, [id number] 03:30:00 Test Item Value Reference Range Interpretation Comments PH ARTERIAL (BEAKER) (test code = 7.50 7.35-7.45 H 383) PCO2 ARTERIAL (BEAKER) (test code 38 mmHg 35-45 = 384) PO2 ARTERIAL (BEAKER) (test code = 142 mmHg 80-90 H 385) O2 SATURATION ARTERIAL (AKER) 99.0 % 96.0-97.0 H (test code = 386) [facility]ERIAL [facility] (test code 29 mmol/L 21-29 = 388) BASE EXCESS ARTERIAL (AKER) 5.4 mmol/L -2.0-3.0 H (test code = 387) PATIENT TEMPERATURE ([facility]) (test 37.5 C code = 1818) FIO2 ([facility] (test code = 1819) 40.0 % POCT-GLUCOSE [id number] 23:43:00 Test Item Value Reference Range Interpretation Comments POC-GLUCOSE METER 143 mg/dL 70-110 H TESTED AT [place] [address] ([facility]) (test code = [facility] 1538) [address] BLOOD [id number] 18:00:00 Test Item Value Reference Range Interpretation Comments CULTURE (BEAKER) (test No growth in 5 days code = 1095) BLOOD [id number] 18:00:00 Test Item Value Reference Range Interpretation Comments CULTURE (BEAKER) (test No growth in 5 days code = 1095) POCT-GLUCOSE [id number] 16:32:00 Test Item Value Reference Range Interpretation Comments POC-GLUCOSE METER 185 mg/dL 70-110 H TESTED AT [place] [address] ([facility]) (test code = [facility] 1538) [address] MISCELLANEOUS LAB [id number] 15:04:00 Test Item Value Reference Range Interpretation Comments SCAN RESULT (test code = 9032956) Result comments: NOT DETECTED Panel is negative for [employer] BCID-detectable organisms. Please refer to traditional culture and sensitivity results as they become available. Other organisms and resistance markers not contained in this PCR panel cannot be excluded and follow-up of traditional culture results is required. This sample was tested at the [facility] Clinical Microbiology Laboratory using the [employer] Blood Culture ID Panel. This test is FDA cleared for in vitro diagnostic use and hasbeen verified and approved by the [facility] Clinical Microbiology laboratory for clinical use. ReferenceRange: Not DetectedPOCT- GLUCOSE [id number] 12:25:00 Test Item Value Reference Range Interpretation Comments POC-GLUCOSE METER 116 mg/dL 70-110 H TESTED AT [facility] 6720 ([facility]) (test code = [facility] 1538) [address] RAD, CHEST, 1 VIEW, NON [id number] 06:38:00Reason for exam:->pl effusionShould this be performed [...] MDReport Verified Date/Time: 01/20/2018 06:38:33 Reading Location: [place] [address] CT Body Reading Room POCT-GLUCOSE [id number] 05:54:00 Test Item Value Reference Range Interpretation Comments POC-GLUCOSE METER 231 mg/dL 70-110 H TESTED AT [facility] 6720 (BEAKER) (test code = [facility] 1538) [address] VANCOMYCIN LEVEL, [id number] 04:23:00 Test Item Value Reference Range Interpretation Comments VANCOMYCIN RANDOM (BEAKER) (test 25.8 ug/mL code = 523) Reference Range: No [id number] 04:17:00 Test Item Value Reference Range Interpretation Comments MAGNESIUM (BEAKER) (test code = 2.0 mg/dL 1.6-2.6 627) HEPATIC FUNCTION [id number] 04:17:00 Test Item Value Reference Range Interpretation [...] 6-55 H 347) Specimen moderately ictericBASIC METABOLIC [id number] 04:17:00 Test Item Value Reference Range Interpretation [...] APPLICABLE FOR DIALYSIS PATIEN TS. Specimen moderately [id number] 04:05:00 Test Item Value Reference Range Interpretation Comments PARTIAL THROMBOPLASTIN TIME 69.7 seconds 22.5-36.0 H (BEAKER) (test code = 760) CBC W/PLT COUNT & AUTO [id number] 03:49:00 Test Item Value Reference Range Interpretation [...] H PERCENT (BEAKER) (test code = 2802) OXYGEN SATURATION, [id number] 03:48:00 Test Item Value Reference Range Interpretation Comments O2 SATURATION (MEASURED) (BEAKER) 84.1 % (test code = 1455) POCT-GLUCOSE [id number] 23:14:00 Test Item Value Reference Range Interpretation Comments POC-GLUCOSE METER 248 mg/dL 70-110 H TESTED AT [facility] 6720 [facility] (test code = [place] 1538) [address] POCT-GLUCOSE [id number] 18:56:00 Test Item Value Reference Range Interpretation Comments POC-GLUCOSE METER 213 mg/dL 70-110 H TESTED AT [facility] 6720 (BEAKER) (test code = [facility] 1538) [address] POCT-GLUCOSE [id number] 14:06:00 Test Item Value Reference Range Interpretation Comments POC-GLUCOSE METER 210 mg/dL 70-110 H TESTED AT [facility] 6720 (BEAKER) (test code = [facility] 1538) [address] SPUTUM CULTURE + GRAM [id number] 13:45:00 Test Item Value Reference Range Interpretation Comments CULTURE (BEAKER) 4+ Normal respiratory (test code = 1095) pete present GRAM STAIN RESULT 4+ WBCs (BEAKER) (test code = 1123) GRAM STAIN RESULT 0-5 epithelial cells (BEAKER) (test code = 73959) GRAM STAIN RESULT 3+ gram negative rods (BEAKER) (test code = 89110) GRAM STAIN RESULT 2+ gram positive cocci (BEAKER) (test code = in pairs and clusters 289503) [id number] 12:37:00 Test Item Value Reference Range Interpretation Comments PARTIAL THROMBOPLASTIN TIME 74.3 seconds 22.5-36.0 H (BEAKER) (test code = 760) CBC W/PLT COUNT & AUTO [id number] 10:52:00 Test Item Value Reference Range Interpretation [...] H (test code = 413) VANCOMYCIN LEVEL, [id number] 05:41:00 Test Item Value Reference Range Interpretation Comments VANCOMYCIN RANDOM (BEAKER) (test 27.9 ug/mL code = 523) Reference Range: No NormalsBASIC METABOLIC [id number] 05:39:00 Test Item Value Reference Range Interpretation [...] APPLICABLE FOR DIALYSIS PATIEN TS. Specimen moderately [id number] 05:36:00 Test Item Value Reference Range Interpretation Comments MAGNESIUM (BEAKER) (test code = 2.0 mg/dL 1.6-2.6 627) [id number] 05:36:00 Test Item Value Reference Range Interpretation Comments PHOSPHORUS (BEAKER) (test code = 3.9 mg/dL 2.3-4.7 604) HEPATIC FUNCTION [id number] 05:36:00 Test Item Value Reference Range Interpretation [...] 6-55 H 347) Specimen moderately ictericOXYGEN SATURATION, [id number] 05:33:00 Test Item Value Reference Range Interpretation [...] WBC 0-0 H (test code = 413) [id number] 05:24:00 Test Item Value Reference Range Interpretation Comments PARTIAL THROMBOPLASTIN TIME 68.1 seconds 22.5-36.0 H (BEAKER) (test code = 760) RAD, CHEST, 1 VIEW, NON [id number] 04:41:00Reason for exam:->pl effusionShould this be performed at the bedside?->YesFINAL REPORT CLINICAL INDICATION: Support lines. Comparison: 01/18/2018 The ca rdiomediastinal contours are stable. Central pulmonary vascular congestion and bilateral parenchymalopacities are unchanged. There is no pneumothorax. Support lines are stable. Signed: Kellen Parra Verified Date/Time: 01/19/2018 04:41:27 Reading Location: [address] Reading Room APTT 2018-01-19 00:38:00 Test Item Value Reference Range Interpretation Comments PARTIAL THROMBOPLASTIN TIME 45.5 seconds 22.5-36.0 H (BEAKER) (test code = 760) POCT-GLUCOSE [id number] 00:21:00 Test Item Value Reference Range Interpretation Comments POC-GLUCOSE METER 189 mg/dL 70-110 H TESTED AT [place] [address] ([facility]) (test code = [facility] 1538) [address] POCT-GLUCOSE [id number] 23:34:00 Test Item Value Reference Range Interpretation Comments POC-GLUCOSE METER 162 mg/dL 70-110 H TESTED AT [facility] 67 ([facility]) (test code = [place] 1538) [address] POCT-GLUCOSE [id number] 18:09:00 Test Item Value Reference Range Interpretation Comments POC-GLUCOSE METER 172 mg/dL 70-110 H TESTED AT [place] [address] ([facility]) (test code = [place] 1538) [address] RAD, ABDOMEN/KUB, 1 VIEW [id number] 17:36:00Reason for exam:->ileusShould this be performed at the bedside?->YesFINAL REPORT Comparison: 01/17/2018 TECHNIQUE: Frontal image of the abdomen FINDINGS: There is a nonspecific bowel gas pattern. Tip of nasogastric projects in the distal stomach. No gross free intraperitoneal air. No acute skeletal abnormality. Signed: Kyle Rome MDReport Verified Date/Time: 01/18/2018 17:36:02 Reading Location: [address] Transitional Reading Room [id number] 17:10:00 Test Item Value Reference Range Interpretation Comments PARTIAL THROMBOPLASTIN TIME 27.8 seconds 22.5-36.0 (BEAKER) (test code = 760) Prior to initiating heparinPOCT-GLUCOSE [id number] 15:22:00 Test Item Value Reference Range Interpretation Comments POC-GLUCOSE METER 126 mg/dL 70-110 H TESTED AT [facility] 6720 (BEAKER) (test code = [place] 1538) [address] [id number] 13:02:00 Test Item Value Reference Range Interpretation Comments PHOSPHORUS (BEAKER) (test code = 3.8 mg/dL 2.3-4.7 604) BASIC METABOLIC [id number] 13:02:00 Test Item Value Reference Range Interpretation [...] FOR DIALYSIS PATIEN TS. Specimen moderately ictericPOCT-GLUCOSE [id number] 12:11:00 Test Item Value Reference Range Interpretation Comments POC-GLUCOSE METER 113 mg/dL 70-110 H TESTED AT [facility] 6720 (BEAKER) (test code = [place] 1538) [address] CBC W/PLT COUNT & AUTO [id number] 12:03:00 Test Item Value Reference Range Interpretation [...] = 413) RAD, CHEST, 1 VIEW, NON [id number] 09:44:00Reason for exam:->pl effusionShould this be performed [...] MDReport Verified Date/Time: 01/18/2018 09:44:26 Reading Location: [facility] C013T Transitional Reading Room SPUTUM CULTURE + GRAM [id number] 08:09:00 Test Item Value Reference Range Interpretation Comments CULTURE (BEAKER) 3+ Normal respiratory (test code = 1095) pete present GRAM STAIN RESULT 4+ WBCs (BEAKER) (test code = 1123) GRAM STAIN RESULT 0-5 epithelial cells (BEAKER) (test code = 14715) GRAM STAIN RESULT No organisms seen (BEAKER) (test code = 36505) POCT-GLUCOSE [id number] 07:52:00 Test Item Value Reference Range Interpretation Comments POC-GLUCOSE METER 146 mg/dL 70-110 H TESTED AT [place] [address] (BEAKER) (test code = [facility] 1538) [address] POCT-GLUCOSE [id number] 06:30:00 Test Item Value Reference Range Interpretation Comments POC-GLUCOSE METER 135 mg/dL 70-110 H TEST[facility] AT [place] [address] [facility] (test code = [facility] 1538) [address] POCT-GLUCOSE [id number] 06:30:00 Test Item Value Reference Range Interpretation Comments POC-GLUCOSE METER 130 mg/dL 70-110 H TESTED AT [place] [address] ([facility] (test code = [facility] 1538) [address] [id number] 03:56:00 Test Item Value Reference Range Interpretation Comments PHOSPHORUS (BEAKER) (test code = 3.1 mg/dL 2.3-4.7 604) [id number] 03:56:00 Test Item Value Reference Range Interpretation Comments MAGNESIUM (BEAKER) (test code = 2.0 mg/dL 1.6-2.6 627) HEPATIC FUNCTION [id number] 03:56:00 Test Item Value Reference Range Interpretation [...] 6-55 H 347) Specimen moderately ictericVANCOMYCIN LEVEL, [id number] 03:53:00 Test Item Value Reference Range Interpretation Comments VANCOMYCIN RANDOM (BEAKER) (test 18.0 ug/mL code = 523) Reference Range: No [id number] 03:48:00 Test Item Value Reference Range Interpretation Comments CALCIUM (BEAKER) (test code = 697) 8.1 mg/dL 8.4-10.2 L CALCIUM, [id number] 03:34:00 Test Item Value Reference Range Interpretation Comments CALCIUM IONIZED (BEAKER) (test 1.06 mmol/L 1.12-1.27 L code = 698) PH, BLOOD (BEAKER) (test code = 7.38 1810) OXYGEN SATURATION, [id number] 03:33:00 Test Item Value Reference Range Interpretation Comments O2 SATURATION (MEASURED) (BEAKER) 85.8 % (test code = 1455) POCT-GLUCOSE [id number] 03:26:00 Test Item Value Reference Range Interpretation Comments POC-GLUCOSE METER 144 mg/dL 70-110 H TESTED AT [facility] 6720 [facility] (test code = [place] 1538) [address] POCT-GLUCOSE [id number] 03:26:00 Test Item Value Reference Range Interpretation Comments POC-GLUCOSE METER 163 mg/dL 70-110 H TESTED AT [facility] 6720 (BEAKER) (test code = [place] 1538) [address] POCT-GLUCOSE [id number] 01:04:00 Test Item Value Reference Range Interpretation Comments POC-GLUCOSE METER 159 mg/dL 70-110 H TESTED AT [facility] 6720 (BEAKER) (test code = [place] 1538) [address] POCT-GLUCOSE [id number] 00:12:00 Test Item Value Reference Range Interpretation Comments POC-GLUCOSE METER 132 mg/dL 70-110 H TESTED AT [facility] 6720 (BEAKER) (test code = [place] 1538) [address] LACTIC ACID, ARTERIAL, WHOLE [id number] 23:54:00 Test Item Value Reference Range Interpretation Comments LACTATE BLOOD ARTERIAL (2) 0.7 mmol/L 0.5-2.2 (BEAKER) (test code = 2874) Effective 01/04/2016: Units/Reference Range ChangeNew: 0.5-2.2 mmol/L Previous: 5-20 mg/dLSpecimen moderately ictericPOTASSIUM-STAT [id number] 23:30:00 Test Item Value Reference Range Interpretation Comments POTASSIUM (BEAKER) (test code = 4.0 meq/L 3.6-5.5 379) BLOOD GAS, [id number] 23:30:00 Test Item Value Reference Range Interpretation [...] code = 1819) 50.0 % SODIUM NA-STAT [id number] 23:30:00 Test Item Value Reference Range Interpretation Comments SODIUM (BEAKER) (test code = 381) 134 meq/L 135-148 L GLUCOSE-STAT [id number] 23:30:00 Test Item Value Reference Range Interpretation Comments GLUCOSE RANDOM (BEAKER) (test code 138 mg/dL 70-110 H = 652) HGB/HCT (H&H) - STAT [id number] 23:30:00 Test Item Value Reference Range Interpretation Comments HEMOGLOBIN (BEAKER) (test code = 9.0 g/dL 13.0-16.8 L 410) HEMATOCRIT ([facility]) (test code = 26.0 % 40.0-50.0 L 411) CALCIUM, [id number] 23:30:00 Test Item Value Reference Range Interpretation Comments CALCIUM IONIZED ([facility]) (test 1.04 mmol/L 1.12-1.27 L code = 698) PH, BLOOD ([facility]) (test code = 7.48 1810) OXYGEN SATURATION, [id number] 23:28:00 Test Item Value Reference Range Interpretation Comments O2 SATURATION (MEASURED) ([facility]) 82.0 % (test code = 1455) POCT-GLUCOSE [id number] 21:35:00 Test Item Value Reference Range Interpretation Comments POC-GLUCOSE METER 99 mg/dL 70-110 TESTED AT [place] [id number] ([facility]) (test code = [facility] [address] 1538) POCT-GLUCOSE [id number] 21:35:00 Test Item Value Reference Range Interpretation Comments POC-GLUCOSE METER 111 mg/dL 70-110 H TESTED AT [place] [address] ([facility]) (test code = [facility] 1538) [address] RAD, CHEST, 1 VIEW, NON [id number] 17:08:00Reason for exam:->LIJ placment CVCShould this be [...] intact and well aligned. No fracture. Signed: LinTimboAlonso Yana MDReport Verified Date/Time: 01/17/2018 17:08:24 Reading Location: [facility] Radiology Reading Room GLUCOSE-STAT [id number] 16:33:00 Test Item Value Reference Range Interpretation Comments GLUCOSE RANDOM (BEAKER) (test code 147 mg/dL 70-110 H = 652) POTASSIUM-STAT [id number] 16:32:00 Test Item Value Reference Range Interpretation Comments POTASSIUM (BEAKER) (test code = 4.7 meq/L 3.6-5.5 379) [id number] 15:03:00 Test Item Value Reference Range Interpretation Comments PROCALCITONIN (BEAKER) (test code 5.33 ng/mL <0.05 H = 3036) SEPSIS RISK (ng/mL)Low: 0.05-0.50Intermediate: 0.51-2.00High: >=2.01CT BRAIN WITHOUT IV CONTRAST - [id number] 13:50:00Reason for exam:->altered mental statusFINAL REPORT CT [...] MDReport Verified Date/Time: 01/17/2018 13:50:42 Reading Location: [facility] Radiology Reading Room CALCIUM, [id number] 12:36:00 Test Item Value Reference Range Interpretation Comments CALCIUM IONIZED (BEAKER) (test 1.09 mmol/L 1.12-1.27 L code = 698) PH, BLOOD (BEAKER) (test code = 7.36 1810) GLUCOSE-STAT [id number] 12:36:00 Test Item Value Reference Range Interpretation Comments GLUCOSE RANDOM (BEAKER) (test code 147 mg/dL 70-110 H = 652) POTASSIUM-STAT [id number] 12:36:00 Test Item Value Reference Range Interpretation Comments POTASSIUM (BEAKER) (test code = 4.7 meq/L 3.6-5.5 379) RAD, ABDOMEN/KUB, 1 VIEW [id number] 08:42:00Reason for exam:->ileusShould this be performed at [...] MDReport Verified Date/Time: 01/17/2018 08:42:09 Reading Location: [facility] Radiology Reading Room CBC W/PLT COUNT & AUTO [id number] 08:18:00 Test Item Value Reference Range Interpretation Comments WHITE BLOOD CELL COUNT (BEAKER) 22.5 K/ L 3.5-10.5 H (test code = 775) RED BLOOD CELL COUNT (BEAKER) 2.87 M/ L 4.63-6.08 L (test code = 761) HEMOGLOBIN (BEAKER) (test code = 9.0 GM/DL 13.7-17.5 L 410) HEMATOCRIT (BEAKER) (test code = 27.4 % 40.1-51.0 L 411) MEAN CORPUSCULAR VOLUME (AKER) 95.5 fL 79.0-92.2 H (test code = 753) MEAN CORPUSCULAR HEMOGLOBIN 31.4 pg 25.7-32.2 (AKER) (test code = 751) MEAN CORPUSCULAR HEMOGLOBIN CONC 32.8 GM/DL 32.3-36.5 (AKER) (test code = 752) RED CELL DISTRIBUTION WIDTH 18.8 % 11.6-14.4 H (AKER) (test code = 412) PLATELET COUNT ([facility]) (test code 63 K/CU MM 150-450 L = 756) MEAN PLATELET VOLUME ([facility]) 11.1 fL 9.4-12.4 (test code = 754) NUCLEATED RED BLOOD CELLS ([facility]) 6 /100 WBC 0-0 H (test code = 413) HEPARIN ASSAY - [id number] 08:07:00 Test Item Value Reference Range Interpretation Comments UNFRACTIONATED HEPARIN-ANTI 10A < u/ml 0.30-0.70 L ([facility]) (test code = 1606) Recommendations for Monitoring Unfractionated Heparin Therapeutic Range: 0.3- 0.7 u/mL with continuous IV infusionPOCT-GLUCOSE [id number] 06:09:00 Test Item Value Reference Range Interpretation Comments POC-GLUCOSE METER 143 mg/dL 70-110 H TESTED AT [facility] 6720 ([facility]) (test code = [facility] 1538) [address] RAD, CHEST, 1 VIEW, NON [id number] 04:43:00Reason for exam:->acute respiratory insufficiencyShould this be [...] MDReport Verified Date/Time: 01/17/2018 04:43:34 Reading Location: [facility] [id number] Body Reading Room OXYGEN SATURATION, [id number] 04:13:00 Test Item Value Reference Range Interpretation Comments O2 SATURATION (MEASURED) (BEAKER) 85.7 % (test code = 1455) [id number] 04:06:00 Test Item Value Reference Range Interpretation Comments PHOSPHORUS (BEAKER) (test code = 3.1 mg/dL 2.3-4.7 604) [id number] 04:06:00 Test Item Value Reference Range Interpretation Comments MAGNESIUM (BEAKER) (test code = 2.1 mg/dL 1.6-2.6 627) COMPREHENSIVE METABOLIC [id number] 04:06:00 Test Item Value Reference Range Interpretation [...] DIALYSIS PATIEN TS. Specimen moderately ictericHEPATIC FUNCTION [id number] 04:06:00 Test Item Value Reference Range Interpretation [...] 347) Specimen moderately ictericLACTIC ACID, ARTERIAL, WHOLE [id number] 03:59:00 Test Item Value Reference Range Interpretation Comments LACTATE BLOOD 0.5 mmol/L 0.5-2.2 Specimen sligh tly ARTERIAL (2) (BEAKER) hemoly zed (test code = 2874) Effective 01/04/2016: Units/Reference Range ChangeNew: 0.5-2.2 mmol/L Previous: 5-20 mg/dLSpecimen moderately ictericBLOOD GAS, [id number] 03:58:00 Test Item Value Reference Range Interpretation [...] -2.0-3.0 (test code = 387) PATIENT TEMPERATURE ([facility]) (test 35.6 C code = 1818) FIO2 ([facility]) (test code = 1819) 40.0 % CALCIUM, [id number] 03:58:00 Test Item Value Reference Range Interpretation Comments CALCIUM IONIZED ([facility]) (test 1.14 mmol/L 1.12-1.27 code = 698) PH, BLOOD ([facility]) (test code = 7.41 1810) POCT-GLUCOSE [id number] 02:41:00 Test Item Value Reference Range Interpretation Comments POC-GLUCOSE METER 144 mg/dL 70-110 H TESTED AT [place] [address] ([facility]) (test code = [facility] 1538) [address] POCT-GLUCOSE [id number] 00:30:00 Test Item Value Reference Range Interpretation Comments POC-GLUCOSE METER 171 mg/dL 70-110 H TESTED AT [place] [address] ([facility]) [facility] [address] POTASSIUM-STAT [id number] 00:08:00 Test Item Value Reference Range Interpretation Comments POTASSIUM ([facility]) (test code = 4.5 meq/L 3.6-5.5 379) POCT-GLUCOSE [id number] 23:30:00 Test Item Value Reference Range Interpretation Comments POC-GLUCOSE METER 159 mg/dL 70-110 H TESTED AT [place] [address] ([facility]) (test code = [facility] [place] 1538) [address] POCT-GLUCOSE [id number] 21:08:00 Test Item Value Reference Range Interpretation Comments POC-GLUCOSE METER 194 mg/dL 70-110 H TESTED AT [place] [address] ([facility]) (test code = [facility] [place] 1538) [address] POCT-GLUCOSE [id number] 21:08:00 Test Item Value Reference Range Interpretation Comments POC-GLUCOSE METER 230 mg/dL 70-110 H TESTED AT [place] [address] ([facility]) ([facility] = [facility] [place] 1538) [address] CALCIUM, [id number] 19:23:00 Test Item Value Reference Range Interpretation Comments CALCIUM IONIZED (BEAKER) (test 1.14 mmol/L 1.12-1.27 code = 698) PH, BLOOD (BEAKER) (test code = 7.36 1810) POTASSIUM-STAT [id number] 19:23:00 Test Item Value Reference Range Interpretation Comments POTASSIUM (BEAKER) (test code = 5.1 meq/L 3.6-5.5 379) [id number] 17:27:00 Test Item Value Reference Range Interpretation Comments PHOSPHORUS (BEAKER) (test code = 2.2 mg/dL 2.3-4.7 L 604) [id number] 17:27:00 Test Item Value Reference Range Interpretation Comments MAGNESIUM (BEAKER) (test code = 2.1 mg/dL 1.6-2.6 627) PH, [id number] 17:03:00 Test Item Value Reference Range Interpretation Comments PH ARTERIAL (BEAKER) (test code = 383) 7.39 7.35-7.45 POCT-GLUCOSE [id number] 16:43:00 Test Item Value Reference Range Interpretation Comments POC-GLUCOSE METER 95 mg/dL 70-110 TESTED AT [facility] 6720 [facility] (test code = [facility] [address] 1538) POCT-GLUCOSE [id number] 14:41:00 Test Item Value Reference Range Interpretation Comments POC-GLUCOSE METER 134 mg/dL 70-110 H TESTED AT [place] [address] [facility] (test code = [facility] 1538) [address] RAD, ABDOMEN/KUB, 1 VIEW [id number] 13:16:00Reason for exam:- >constipationShould this be performed [...] MDReport Verified Date/Time: 01/16/2018 13:16:27 [facility] Electronically signed by: KAY WALTER on01/16/2018 01:16 PMCALCIUM, [id number] 12:38:00 Test Item Value Reference Range Interpretation Comments CALCIUM IONIZED (BEAKER) (test 1.14 mmol/L 1.12-1.27 code = 698) PH, BLOOD ([facility]) (test code = 7.40 1810) POCT-GLUCOSE [id number] 12:29:00 Test Item Value Reference Range Interpretation Comments POC-GLUCOSE METER 127 mg/dL 70-110 H TESTED AT [place] [address] ([facility]) (test code = [facility] 1538) [address] POCT-GLUCOSE [id number] 10:34:00 Test Item Value Reference Range Interpretation Comments POC-GLUCOSE METER 130 mg/dL 70-110 H TESTED AT [place] [address] ([facility]) (test code = [facility] 1538) [address] POCT-GLUCOSE [id number] 09:10:00 Test Item Value Reference Range Interpretation Comments POC-GLUCOSE METER 151 mg/dL 70-110 H TESTED AT [place] [address] ([facility]) (test code = [facility] 1538) [address] HEPARIN ASSAY - [id number] 09:00:00 Test Item Value Reference Range Interpretation Comments UNFRACTIONATED HEPARIN-ANTI 10A < u/ml 0.30-0.70 L ([facility]) (test code = 1606) Recommendations for Monitoring [...] H (test code = 413) OXYGEN SATURATION, [id number] 08:30:00 Test Item Value Reference Range Interpretation Comments O2 SATURATION (MEASURED) (BEAKER) 87.1 % (test code = 1455) RAD, CHEST, 1 VIEW, NON [id number] 08:11:00Reason for exam:->acute respiratory insufficiencyShould this be performed at the bedside?->YesFINAL REPORT CLINICAL HISTORY: acute respiratory insufficiency TECHNIQUE: 1 view of the chest. COMPARISON: 01/15/2018 IMPRESSION: The [place] catheter has been removed. The supporting lines and tubes are otherwise unchanged. There is no pneumothorax. Mild bilateral perihilar lung opacities have decreased. The cardiomediastinal silhouette is magnified by technique with sternotomy wires. Signed: Lorna Slade MDReport Verified Date/Time: 01/16/2018 08:11:02 Reading Location: [facility] Radiology Reading Room POCT- GLUCOSE [id number] 06:43:00 Test Item Value Reference Range Interpretation Comments POC-GLUCOSE METER 107 mg/dL 70-110 TESTED AT [facility] 6720 ([facility]) (test code = [facility] [place] 1538) [address] U/S, ABDOMINAL, [id number] 05:25:00Abdomen limited area? Add comment if clarification [...] MDReport Verified Date/Time: 01/16/2018 05:25:06 Reading Location: [address] Body Reading Room IC ACID, ARTERIAL, WHOLE [id number] 04:06:00 Test Item Value Reference Range Interpretation Comments LACTATE BLOOD ARTERIAL (2) 0.6 mmol/L 0.5-2.2 (BEAKER) (test code = 2874) Effective 01/04/2016: Units/Reference Range ChangeNew: 0.5-2.2 mmol/L Previous: 5-20 mg/dLSpecimen moderately [id number] 04:00:00 Test Item Value Reference Range Interpretation Comments PHOSPHORUS (BEAKER) (test code = 2.2 mg/dL 2.3-4.7 L 604) [id number] 04:00:00 Test Item Value Reference Range Interpretation Comments MAGNESIUM (BEAKER) (test code = 2.0 mg/dL 1.6-2.6 627) [id number] 04:00:00 Test Item Value Reference Range Interpretation Comments CALCIUM (BEAKER) (test code = 697) 8.5 mg/dL 8.4-10.2 COMPREHENSIVE METABOLIC [id number] 04:00:00 Test Item Value Reference Range Interpretation [...] DIALYSIS PATIEN TS. Specimen moderately ictericHEPATIC FUNCTION [id number] 04:00:00 Test Item Value Reference Range Interpretation [...] 6-55 H 347) Specimen moderately ictericBLOOD GAS, [id number] 03:51:00 Test Item Value Reference Range Interpretation [...] (test code = 1819) 60.0 % PROTHROMBIN [id number] 03:51:00 Test Item Value Reference Range Interpretation Comments PROTIME (BEAKER) (test code = 15.2 seconds 11.7-14.7 H 759) INR (BEAKER) (test code = 370) 1.2 <=5.9 RECOMMENDED COUMADIN/WARFARIN INR THERAPY RANGESSTANDARD DOSE: 2.0 - 3.0 Includes: PROPHYLAXIS forvenous thrombosis, systemic embolization; TREATMENT for venous thrombosis and/or pulmonary embolus.HIGH RISK: Target INR is 2.5-3.5 for patients with mechanical heart valves.CALCIUM, [id number] 03:51:00 Test Item Value Reference Range Interpretation Comments CALCIUM IONIZED (BEAKER) (test 1.17 mmol/L 1.12-1.27 code = 698) PH, BLOOD (BEAKER) (test code = 7.42 1810) POCT-GLUCOSE [id number] 02:08:00 Test Item Value Reference Range Interpretation Comments POC-GLUCOSE METER 110 mg/dL 70-110 TESTED AT [place] [address] ([facility]) (test code = [facility] 1538) [address] POCT-GLUCOSE [id number] 01:14:00 Test Item Value Reference Range Interpretation Comments POC-GLUCOSE METER 107 mg/dL 70-110 TESTED AT [place] [address] ([facility]) (test code = [facility] 1538) [address] POCT-GLUCOSE [id number] 00:29:00 Test Item Value Reference Range Interpretation Comments POC-GLUCOSE METER 129 mg/dL 70-110 H TESTED AT [place] [address] ([facility]) (test code = [facility] 1538) [address] POCT-GLUCOSE [id number] 23:07:00 Test Item Value Reference Range Interpretation Comments POC-GLUCOSE METER 152 mg/dL 70-110 H TESTED AT [place] [address] ([facility]) (test code = [facility] 1538) [address] POCT-GLUCOSE [id number] 22:09:00 Test Item Value Reference Range Interpretation Comments POC-GLUCOSE METER 171 mg/dL 70-110 H TESTED AT [place] [address] ([facility]) (test code = [facility] 1538) [address] POCT-GLUCOSE [id number] 21:13:00 Test Item Value Reference Range Interpretation Comments POC-GLUCOSE METER 171 mg/dL 70-110 H TESTED AT [place] [address] ([facility]) (test code = [facility] 1538) [address] CALCIUM, [id number] 20:50:00 Test Item Value Reference Range Interpretation Comments CALCIUM IONIZED ([facility]) (test 1.15 mmol/L 1.12-1.27 code = 698) PH, BLOOD ([facility]) (test code = 7.34 1810) POCT-GLUCOSE [id number] 20:21:00 Test Item Value Reference Range Interpretation Comments POC-GLUCOSE METER 206 mg/dL 70-110 H TESTED AT [place] [address] ([facility]) (test code = [facility] 1538) [address] POCT-GLUCOSE [id number] 19:16:00 Test Item Value Reference Range Interpretation Comments POC-GLUCOSE METER 197 mg/dL 70-110 H TESTED AT [facility] 6720 ([facility]) (test code = [place] 1538) [address] [id number] 17:15:00 Test Item Value Reference Range Interpretation Comments PHOSPHORUS ([facility]) (test code = 4.1 mg/dL 2.3-4.7 604) [id number] 17:15:00 Test Item Value Reference Range Interpretation Comments MAGNESIUM ([facility]) (test code = 1.9 mg/dL 1.6-2.6 627) EEG AWAKE AND [id number] 14:56:00For STAT EEG- after 5 PM weekdays, weekends and holidays, page the on-call EEG TechReason for exam:->AMSShould this be performed at the bedside?->YesDate(s) of EE01/15/2018DATE OF REPORT: 01/15/2018ACC: [id number] Number: [id number] Location: Inpatient ICUStart time: 13:18Stop time: 13:40ICD-10: R41.82CPT Code: 02476 HISTORY: 62 y/o man with hxof AFib, [...] Kwon MD, MSClinic al Neurophysiology/Epilepsy Attending HEPARIN [id number] 13:21:00 Test Item Value Reference Range Interpretation Comments HEPARIN ANTIBODY ([facility]) (test code Negative Negative = 646) HEPARIN ANTIBODY OD ([facility]) (test 0.076 <0.400 code = 2659) 4T TOTAL SCORE ([facility]) (test code = 5 2661) Probability of HIT based on scoring system: 6-8 = High probability; 4-5 = intermediate probability;0-3 = low probabilityPOCT-GLUCOSE [id number] 12:26:00 Test Item Value Reference Range Interpretation Comments POC-GLUCOSE METER 128 mg/dL 70-110 H TESTED AT [facility] 6720 ([facility]) (test code = [place] 1538) [address] FIBRIN SOLUBLE [id number] 11:02:00 Test Item Value Reference Range Interpretation Comments FIBRIN SOLUBLE MONOMER (AKER) Negative (test code = 1416) HEPARIN ASSAY - [id number] 10:20:00 Test Item Value Reference Range Interpretation Comments UNFRACTIONATED HEPARIN-ANTI 10A < u/ml 0.30-0.70 L ([employer]) (test code = 1606) Recommendations for Monitoring Unfractionated Heparin Therapeutic Range: 0.3- 0.7 u/mL with continuous IV [id number]-[id number] 10:14:00 Test Item Value Reference Range Interpretation Comments D-DIMER QUANTITATIVE [facility] 3.76 MG/L FEU <0.50 H (test code [...] of thrombosis is within 95-100% range. GLUCOSE-STAT [id number] 10:03:00 Test Item Value Reference Range Interpretation Comments GLUCOSE RANDOM (BEAKER) (test code 151 mg/dL 70-110 H = 652) CALCIUM, [id number] 10:02:00 Test Item Value Reference Range Interpretation Comments CALCIUM IONIZED (BEAKER) (test 1.13 mmol/L 1.12-1.27 code = 698) PH, BLOOD (BEAKER) (test code = 7.36 1810) POTASSIUM-STAT [id number] 10:01:00 Test Item Value Reference Range Interpretation Comments POTASSIUM (BEAKER) (test code = 4.3 meq/L 3.6-5.5 379) CBC W/PLT COUNT & AUTO [id number] 07:43:00 Test Item Value Reference Range Interpretation [...] = 2801) RAD, CHEST, 1 VIEW, NON [id number] 04:00:00Reason for exam:->acute respiratory insufficiencyShould this be performed at the bedside?->Yes Addendum BeginsREPORT STATUS:A Correction: Comparison is made to previous dated 01/14/2018. Signed: Kellen Parra Verified Date/Time: 01/15/2018 04:00:43 Reading Location: [address] Reading RoomAddendum EndsFINAL REPORT CLINICAL ADEEL CATION: Respiratory insufficiency Comparison: 01/15/2018 The cardiomediastinal contours are stable. Central pulmonary vascular congestion and bilateral parenchymal opacities are unchanged. There is no pneumothorax. Support lines are stable. Signed: Kellen Parra MDReport Verified Date/Time: 01/15/201803:46:27 Reading Location: [address] Reading Room [id number] 03:36:00 Test Item Value Reference Range Interpretation Comments PHOSPHORUS (BEAKER) (test code = 2.7 mg/dL 2.3-4.7 604) [id number] 03:36:00 Test Item Value Reference Range Interpretation Comments MAGNESIUM (BEAKER) (test code = 2.0 mg/dL 1.6-2.6 627) COMPREHENSIVE METABOLIC [id number] 03:36:00 Test Item Value Reference Range Interpretation [...] DIALYSIS PATIEN TS. Specimen slightly ictericHEPATIC FUNCTION [id number] 03:36:00 Test Item Value Reference Range Interpretation [...] U/L 6-55 H 347) Specimen slightly ictericPROTHROMBIN [id number] 03:35:00 Test Item Value Reference Range Interpretation [...] mmol/L Previous: 5-20 mg/dLSpecimen slightly ictericBLOOD GAS, [id number] 03:29:00 Test Item Value Reference Range Interpretation [...] -2.0-3.0 (test code = 387) PATIENT TEMPERATURE ([facility]) 37.0 C (test code = 1818) FIO2 ([facility]) (test code = 1819) 40.0 % OXYGEN SATURATION, [id number] 03:26:00 Test Item Value Reference Range Interpretation Comments O2 SATURATION (MEASURED) ([facility]) 72.5 % (test code = 1455) CALCIUM, [id number] 00:17:00 Test Item Value Reference Range Interpretation Comments CALCIUM IONIZED ([facility]) (test 1.19 mmol/L 1.12-1.27 code = 698) PH, BLOOD ([facility]) (test code = 7.36 1810) POCT-GLUCOSE [id number] 00:15:00 Test Item Value Reference Range Interpretation Comments POC-GLUCOSE METER 144 mg/dL 70-110 H TESTED AT [place] [address] ([facility]) (test code = [facility] 1538) [address] POCT-GLUCOSE [id number] 22:43:00 Test Item Value Reference Range Interpretation Comments POC-GLUCOSE METER 98 mg/dL 70-110 TESTED AT [place] [address] ([facility]) (test code = [facility] [address] 1538) POCT-GLUCOSE [id number] 22:43:00 Test Item Value Reference Range Interpretation Comments POC-GLUCOSE METER 80 mg/dL 70-110 TESTED AT [place] [address] ([facility]) (test code = [facility] [address] 1538) VANCOMYCIN LEVEL, [id number] 20:20:00 Test Item Value Reference Range Interpretation Comments VANCOMYCIN TROUGH ([facility]) (test 20.1 ug/mL 10.0-20.0 H code = 522) Before vanc [id number] 16:52:00 Test Item Value Reference Range Interpretation Comments PHOSPHORUS (BEAKER) (test code = 1.7 mg/dL 2.3-4.7 L 604) [id number] 16:52:00 Test Item Value Reference Range Interpretation Comments MAGNESIUM (BEAKER) (test code = 2.3 mg/dL 1.6-2.6 627) [id number] 16:39:00 Test Item Value Reference Range Interpretation Comments AMMONIA (BEAKER) (test code = 348) 32 mol/L 18-72 PH, [id number] 16:01:00 Test Item Value Reference Range Interpretation Comments PH ARTERIAL (BEAKER) (test code = 383) 7.42 7.35-7.45 GLUCOSE-STAT [id number] 16:01:00 Test Item Value Reference Range Interpretation Comments GLUCOSE RANDOM (BEAKER) (test code = 95 mg/dL 70-110 652) POTASSIUM-STAT [id number] 16:01:00 Test Item Value Reference Range Interpretation Comments POTASSIUM (BEAKER) (test code = 4.3 meq/L 3.6-5.5 379) CALCIUM, [id number] 16:01:00 Test Item Value Reference Range Interpretation Comments CALCIUM IONIZED (BEAKER) (test 1.28 mmol/L 1.12-1.27 H code = 698) PH, BLOOD (BEAKER) (test code = 7.42 1810) CALCIUM, [id number] 12:19:00 Test Item Value Reference Range Interpretation Comments CALCIUM IONIZED (BEAKER) (test 1.36 mmol/L 1.12-1.27 H code = 698) PH, BLOOD (BEAKER) (test code = 7.41 1810) GLUCOSE-STAT [id number] 12:17:00 Test Item Value Reference Range Interpretation Comments GLUCOSE RANDOM (BEAKER) (test code = 94 mg/dL 70-110 652) POTASSIUM-STAT [id number] 12:17:00 Test Item Value Reference Range Interpretation Comments POTASSIUM (BEAKER) (test code = 4.3 meq/L 3.6-5.5 379) [id number] 11:34:00 Test Item Value Reference Range Interpretation Comments MAGNESIUM (BEAKER) (test code = 2.1 mg/dL 1.6-2.6 627) BASIC METABOLIC [id number] 11:34:00 Test Item Value Reference Range Interpretation [...] DIALYSIS PATIEN TS. Specimen slightly ictericHEPATIC FUNCTION [id number] 11:34:00 Test Item Value Reference Range Interpretation [...] 6-55 H 347) Specimen slightly ictericBLOOD GAS, [id number] 09:44:00 Test Item Value Reference Range Interpretation [...] (test code = 1819) 100.0 % GLUCOSE-STAT [id number] 09:42:00 Test Item Value Reference Range Interpretation Comments GLUCOSE RANDOM (BEAKER) (test code = 95 mg/dL 70-110 652) POTASSIUM-STAT [id number] 09:42:00 Test Item Value Reference Range Interpretation Comments POTASSIUM (BEAKER) (test code = 4.5 meq/L 3.6-5.5 379) CALCIUM, [id number] 09:38:00 Test Item Value Reference Range Interpretation Comments CALCIUM IONIZED (BEAKER) (test 1.26 mmol/L 1.12-1.27 code = 698) PH, BLOOD (BEAKER) (test code = 7.41 1810) HEPARIN ASSAY - [id number] 08:44:00 Test Item Value Reference Range Interpretation Comments UNFRACTIONATED HEPARIN-ANTI 10A < u/ml 0.30-0.70 L (BEAKER) (test code = 1606) Recommendations for Monitoring Unfractionated Heparin Therapeutic Range: 0.3- 0.7 u/mL with continuous IV infusionGLUCOSE-STAT [id number] 06:41:00 Test Item Value Reference Range Interpretation [...] (test 0.0 % 0.0-5.0 code = 1414) [id number] 05:05:00 Test Item Value Reference Range Interpretation Comments PHOSPHORUS (BEAKER) (test code = 2.5 mg/dL 2.3-4.7 604) [id number] 05:05:00 Test Item Value Reference Range Interpretation Comments MAGNESIUM (BEAKER) (test code = 2.1 mg/dL 1.6-2.6 627) HEPATIC FUNCTION [id number] 05:05:00 Test Item Value Reference Range Interpretation [...] 1266 U/L 6-55 H 347) Specimen slightly [id number] 05:05:00 Test Item Value Reference Range Interpretation Comments CALCIUM (BEAKER) (test code = 697) 9.0 mg/dL 8.4-10.2 LACTATE DEHYDROGENASE (LDH)2018-01-14 05:05:00 Test Item Value Reference Range Interpretation Comments LACTATE DEHYDROGENASE (BEAKER) (test 667 U/L 125-220 H code = 635) PROTHROMBIN TIME/[id number] 05:05:00 Test Item Value Reference Range Interpretation Comments PROTIME (BEAKER) (test code = 15.2 seconds 11.7-14.7 H 759) INR (BEAKER) (test code = 370) 1.2 <=5.9 RECOMMENDED COUMADIN/WARFARIN INR THERAPY RANGESSTANDARD DOSE: 2.0 - 3.0 Includes: PROPHYLAXIS forvenous thrombosis, systemic embolization; TREATMENT for venous thrombosis and/or pulmonary embolus.HIGH RISK: Target INR is 2.5-3.5 for patients with mechanical heart valves.[id number] 05:05:00 Test Item Value Reference Range Interpretation Comments FIBRINOGEN LEVEL (BEAKER) (test 280 mg/dl 225-434 code = 658) RAD, CHEST, 1 VIEW, NON [id number] 04:57:00Reason for exam:- >impella/ECMO/intubationShould this be performed at the bedside?->YesFINAL REPORT CLINICAL INDICATION: Support lines. Comparison: 01/13/2018 The cardiomediastinal contours are stable. Cardiac opacities may reflect atelectasis but pneumonitis should be excluded clinically. There is no pneumothorax. Support lines are stable. Signed: Kellen Parra MDReport Verified Date/Time: 01/14/2018 04:57:02 Reading Location: [address] Reading Room LACTIC ACID, ARTERIAL, WHOLE [id number] 04:55:00 Test Item Value Reference Range Interpretation [...] H (BEAKER) (test code = 413) CALCIUM, [id number] 04:39:00 Test Item Value Reference Range Interpretation Comments CALCIUM IONIZED (BEAKER) (test 1.20 mmol/L 1.12-1.27 code = 698) PH, BLOOD (BEAKER) (test code = 7.37 1810) OXYGEN SATURATION, [id number] 04:38:00 Test Item Value Reference Range Interpretation Comments O2 SATURATION (MEASURED) (BEAKER) 75.3 % (test code = 1455) BLOOD GAS, [id number] 04:37:00 Test Item Value Reference Range Interpretation [...] (test code = 1819) 40.0 % GLUCOSE-STAT [id number] 04:37:00 Test Item Value Reference Range Interpretation Comments GLUCOSE RANDOM (BEAKER) (test code 154 mg/dL 70-110 H = 652) GLUCOSE-STAT [id number] 02:52:00 Test Item Value Reference Range Interpretation Comments GLUCOSE RANDOM (BEAKER) (test code 179 mg/dL 70-110 H = 652) GLUCOSE-STAT [id number] 01:26:00 Test Item Value Reference Range Interpretation Comments GLUCOSE RANDOM (BEAKER) (test code 195 mg/dL 70-110 H = 652) [id number] 00:08:00 Test Item Value Reference Range Interpretation Comments POTASSIUM (BEAKER) (test code = 4.2 meq/L 3.5-5.1 379) [id number] 00:08:00 Test Item Value Reference Range Interpretation Comments GLUCOSE RANDOM (BEAKER) (test code 237 mg/dL 70-105 H = 652) CBC W/PLT COUNT & AUTO [id number] 22:28:00 Test Item Value Reference Range Interpretation [...] = 413) RAD, CHEST, 1 VIEW, NON [id number] 21:50:00Reason for exam:->chest tubes/intubationShould this be performed [...] MDReport Verified Date/Time: 01/13/2018 21:50:50 Reading Location: [facility] C013W Consult Reading Room THROMBOELASTOGRAPH (TEG)2018-01-13 [...] % 0.0-5.0 code = 1414) BASIC METABOLIC [id number] 21:35:00 Test Item Value Reference Range Interpretation [...] APPLICABLE FOR DIALYSIS PATIEN TS. Specimen slightly [id number] 21:06:00 Test Item Value Reference Range Interpretation Comments PHOSPHORUS (BEAKER) (test code = 3.7 mg/dL 2.3-4.7 604) [id number] 21:06:00 Test Item Value Reference Range Interpretation Comments MAGNESIUM (BEAKER) (test code = 2.0 mg/dL 1.6-2.6 627) LACTIC ACID, ARTERIAL, WHOLE [id number] 21:06:00 Test Item Value Reference Range Interpretation Comments LACTATE BLOOD ARTERIAL (2) 1.8 mmol/L 0.5-2.2 (BEAKER) (test code = 2874) Effective 01/04/2016: Units/Reference Range ChangeNew: 0.5-2.2 mmol/L Previous: 5-20 mg/dLSpecimen slightly [id number] 21:01:00 Test Item Value Reference Range Interpretation Comments PARTIAL THROMBOPLASTIN TIME 35.1 seconds 22.5-36.0 (BEAKER) (test code = 760) [id number] 21:00:00 Test Item Value Reference Range Interpretation Comments FIBRINOGEN LEVEL (BEAKER) (test 253 mg/dl 225-434 code = 658) PROTHROMBIN [id number] 20:59:00 Test Item Value Reference Range Interpretation Comments PROTIME (BEAKER) (test code = 16.4 seconds 11.7-14.7 H 759) INR (BEAKER) (test code = 370) 1.3 <=5.9 RECOMMENDED COUMADIN/WARFARIN INR THERAPY RANGESSTANDARD DOSE: 2.0 - 3.0 Includes: PROPHYLAXIS forvenous thrombosis, systemic embolization; TREATMENT for venous thrombosis and/or pulmonary embolus.HIGH RISK: Target INR is 2.5-3.5 for patients with mechanical heart valves.BLOOD GAS, [id number] 20:47:00 Test Item Value Reference Range Interpretation [...] (test code = 1819) 40.0 % GLUCOSE-STAT [id number] 20:47:00 Test Item Value Reference Range Interpretation Comments GLUCOSE RANDOM (BEAKER) (test code 235 mg/dL 70-110 H = 652) CALCIUM, [id number] 20:47:00 Test Item Value Reference Range Interpretation Comments CALCIUM IONIZED (BEAKER) (test 0.97 mmol/L 1.12-1.27 L code = 698) PH, BLOOD (BEAKER) (test code = 7.39 1810) HGB/HCT (H&H) - STAT [id number] 20:46:00 Test Item Value Reference Range Interpretation Comments HEMOGLOBIN (BEAKER) (test code = 7.7 g/dL 13.0-16.8 L 410) HEMATOCRIT (BEAKER) (test code = 23.0 % 40.0-50.0 L 411) POTASSIUM-STAT [id number] 20:46:00 Test Item Value Reference Range Interpretation Comments POTASSIUM (BEAKER) (test code = 3.4 meq/L 3.6-5.5 L 379) SODIUM NA-STAT [id number] 20:46:00 Test Item Value Reference Range Interpretation Comments SODIUM (BEAKER) (test code = 381) 133 meq/L 135-148 L OXYGEN SATURATION, [id number] 20:42:00 Test Item Value Reference Range Interpretation Comments O2 SATURATION (MEASURED) (BEAKER) 74.1 % (test code = 1455) BLOOD GAS, [id number] 18:58:00 Test Item Value Reference Range Interpretation [...] code = 1819) 100.0 % SODIUM NA-STAT [id number] 18:58:00 Test Item Value Reference Range Interpretation Comments SODIUM (BEAKER) (test code = 381) 131 meq/L 135-148 L POTASSIUM-STAT [id number] 18:58:00 Test Item Value Reference Range Interpretation Comments POTASSIUM (BEAKER) (test code = 3.4 meq/L 3.6-5.5 L 379) GLUCOSE-STAT [id number] 18:58:00 Test Item Value Reference Range Interpretation Comments GLUCOSE RANDOM (BEAKER) (test code 214 mg/dL 70-110 H = 652) HGB/HCT (H&H) - STAT [id number] 18:58:00 Test Item Value Reference Range Interpretation [...] % 0.0-5.0 code = 1414) BLOOD GAS, [id number] 18:11:00 Test Item Value Reference Range Interpretation [...] code = 1819) 97.0 % SODIUM NA-STAT [id number] 18:11:00 Test Item Value Reference Range Interpretation Comments SODIUM (BEAKER) (test code = 381) 132 meq/L 135-148 L GLUCOSE-STAT [id number] 18:11:00 Test Item Value Reference Range Interpretation Comments GLUCOSE RANDOM (BEAKER) (test code 200 mg/dL 70-110 H = 652) HGB/HCT (H&H) - STAT [id number] 18:11:00 Test Item Value Reference Range Interpretation Comments HEMOGLOBIN (BEAKER) (test code = 8.2 g/dL 13.0-16.8 L 410) HEMATOCRIT (BEAKER) (test code = 24.0 % 40.0-50.0 L 411) POTASSIUM-STAT [id number] 18:07:00 Test Item Value Reference Range Interpretation Comments POTASSIUM (BEAKER) (test code = 3.5 meq/L 3.6-5.5 L 379) [id number] 16:37:00 Test Item Value Reference Range Interpretation Comments PHOSPHORUS (BEAKER) (test code = 2.5 mg/dL 2.3-4.7 604) [id number] 16:37:00 Test Item Value Reference Range Interpretation Comments MAGNESIUM (BEAKER) (test code = 2.1 mg/dL 1.6-2.6 627) [id number] 16:29:00 Test Item Value Reference Range Interpretation [...] for patients with mechanical heart valves.BLOOD GAS, [id number] 16:16:00 Test Item Value Reference Range Interpretation [...] (test code = 1819) 40.0 % CALCIUM, [id number] 16:14:00 Test Item Value Reference Range Interpretation Comments CALCIUM IONIZED (BEAKER) (test 1.09 mmol/L 1.12-1.27 L code = 698) PH, BLOOD (BEAKER) (test code = 7.64 1810) GLUCOSE-STAT [id number] 16:12:00 Test Item Value Reference Range Interpretation Comments GLUCOSE RANDOM (BEAKER) (test code 182 mg/dL 70-110 H = 652) CALCIUM, [id number] 12:53:00 Test Item Value Reference Range Interpretation Comments CALCIUM IONIZED (BEAKER) (test 1.12 mmol/L 1.12-1.27 code = 698) PH, BLOOD (BEAKER) (test code = 7.51 1810) BLOOD GAS, [id number] 12:53:00 Test Item Value Reference Range Interpretation [...] 1819) 40.0 % HGB/HCT (H&H) - STAT [id number] 12:53:00 Test Item Value Reference Range Interpretation Comments HEMOGLOBIN (BEAKER) (test code = 8.3 g/dL 13.0-16.8 L 410) HEMATOCRIT (BEAKER) (test code = 24.0 % 40.0-50.0 L 411) GLUCOSE-STAT [id number] 12:53:00 Test Item Value Reference Range Interpretation Comments GLUCOSE RANDOM (BEAKER) (test code 185 mg/dL 70-110 H = 652) POTASSIUM-STAT [id number] 12:52:00 Test Item Value Reference Range Interpretation Comments POTASSIUM (BEAKER) (test code = 3.7 meq/L 3.6-5.5 379) CBC W/PLT COUNT & AUTO [id number] 11:04:00 Test Item Value Reference Range Interpretation [...] 0-0 H (test code = 413) POTASSIUM-STAT [id number] 10:49:00 Test Item Value Reference Range Interpretation Comments POTASSIUM (BEAKER) (test code = 3.8 meq/L 3.6-5.5 379) HEPARIN ASSAY - [id number] 09:55:00 Test Item Value Reference Range Interpretation Comments UNFRACTIONATED HEPARIN-ANTI 10A 0.14 u/ml 0.30-0.70 L (BEAKER) (test code = 1606) Recommendations for Monitoring Unfractionated Heparin Therapeutic Range: 0.3- 0.7 u/mL with continuous IV [id number] 09:54:00 Test Item Value Reference Range Interpretation Comments PARTIAL THROMBOPLASTIN TIME 57.6 seconds 22.5-36.0 H (BEAKER) (test code = 760) BLOOD GAS, [id number] 09:33:00 Test Item Value Reference Range Interpretation [...] (test code = 1819) 40.0 % GLUCOSE-STAT [id number] 09:33:00 Test Item Value Reference Range Interpretation Comments GLUCOSE RANDOM (BEAKER) (test code 192 mg/dL 70-110 H = 652) GLUCOSE-STAT [id number] 09:33:00 Test Item Value Reference Range Interpretation Comments GLUCOSE RANDOM (BEAKER) (test code 192 mg/dL 70-110 H = 652) CALCIUM, [id number] 09:32:00 Test Item Value Reference Range Interpretation Comments CALCIUM IONIZED (BEAKER) (test 1.15 mmol/L 1.12-1.27 code = 698) PH, BLOOD (BEAKER) (test code = 7.51 1810) BLOOD GAS, [id number] 07:23:00 Test Item Value Reference Range Interpretation [...] % 0.0-5.0 code = 1414) BLOOD GAS, [id number] 06:13:00 Test Item Value Reference Range Interpretation [...] code = 1819) 40.0 % BLOOD GAS, [id number] 05:13:00 Test Item Value Reference Range Interpretation [...] (BEAKER) (test code = 1819) 100.0 % [id number] 04:41:00 Test Item Value Reference Range Interpretation Comments PARTIAL THROMBOPLASTIN TIME 61.3 seconds 22.5-36.0 H (BEAKER) (test code = 760) RAD, CHEST, 1 VIEW, NON [id number] 04:38:00Reason for exam:- >impella/ECMO/intubationShould this be performed at the bedside?->YesFINAL REPORT CLINICAL INDICATION: Support lines. Comparison: 01/12/2018 The cardiomediastinal contours are stable. Central pulmonary vascular prominence and bilateral parenchymalopacities are previous. There is no pneumothorax. Support lines are stable. Signed: Kellen Parra MDReport Verified Date/Time: 01/13/2018 04:38:41 Reading Location: [address] Reading Room HEPATIC FUNCTION [id number] 04:25:00 Test Item Value Reference Range Interpretation [...] 2232 U/L 6-55 H 347) Specimen slightly [id number] 04:19:00 Test Item Value Reference Range Interpretation Comments PHOSPHORUS (BEAKER) (test code = 4.1 mg/dL 2.3-4.7 604) [id number] 04:19:00 Test Item Value Reference Range Interpretation Comments MAGNESIUM (BEAKER) (test code = 1.9 mg/dL 1.6-2.6 627) [id number] 04:19:00 Test Item Value Reference Range Interpretation Comments CALCIUM (BEAKER) (test code = 697) 8.6 mg/dL 8.4-10.2 BASIC METABOLIC [id number] 04:19:00 Test Item Value Reference Range Interpretation [...] 1658 U/L 125-220 H code = 635) [id number] 04:16:00 Test Item Value Reference Range Interpretation Comments FIBRINOGEN LEVEL (BEAKER) (test 299 mg/dl 225-434 code = 658) LACTIC ACID, ARTERIAL, WHOLE [id number] 04:16:00 Test Item Value Reference Range Interpretation Comments LACTATE BLOOD ARTERIAL (2) 0.8 mmol/L 0.5-2.2 (BEAKER) (test code = 2874) Effective 01/04/2016: Units/Reference Range ChangeNew: 0.5-2.2 mmol/L Previous: 5-20 mg/dLSpecimen slightly ictericPROTHROMBIN [id number] 04:15:00 Test Item Value Reference Range Interpretation Comments PROTIME (BEAKER) (test code = 15.8 seconds 11.7-14.7 H 759) INR (BEAKER) (test code = 370) 1.3 <=5.9 RECOMMENDED COUMADIN/WARFARIN INR THERAPY RANGESSTANDARD DOSE: 2.0 - 3.0 Includes: PROPHYLAXIS forvenous thrombosis, systemic embolization; TREATMENT for venous thrombosis and/or pulmonary embolus.HIGH RISK: Target INR is 2.5-3.5 for patients with mechanical heart valves.CALCIUM, [id number] 04:04:00 Test Item Value Reference Range Interpretation Comments CALCIUM IONIZED (BEAKER) (test 1.15 mmol/L 1.12-1.27 code = 698) PH, BLOOD (BEAKER) (test code = 7.33 1810) BLOOD GAS, [id number] 04:03:00 Test Item Value Reference Range Interpretation [...] (test code = 1819) 40.0 % PLATELET [id number] 03:58:00 Test Item Value Reference Range Interpretation Comments PLATELET COUNT (BEAKER) (test code 89 K/CU MM 150-450 L = 756) OXYGEN SATURATION, [id number] 03:57:00 Test Item Value Reference Range Interpretation Comments O2 SATURATION (MEASURED) (BEAKER) 79.4 % (test code = 1455) BLOOD GAS, [id number] 01:19:00 Test Item Value Reference Range Interpretation [...] (test code = 1819) 40.0 % GLUCOSE-STAT [id number] 01:19:00 Test Item Value Reference Range Interpretation Comments GLUCOSE RANDOM (BEAKER) (test code 177 mg/dL 70-110 H = 652) POTASSIUM-STAT [id number] 01:18:00 Test Item Value Reference Range Interpretation Comments POTASSIUM (BEAKER) (test code = 4.0 meq/L 3.6-5.5 379) CALCIUM, [id number] 01:17:00 Test Item Value Reference Range Interpretation [...] (test 0.0 % 0.0-5.0 code = 1414) [id number] 20:36:00 Test Item Value Reference Range Interpretation Comments POTASSIUM (BEAKER) (test code = 4.2 meq/L 3.5-5.1 379) [id number] 20:36:00 Test Item Value Reference Range Interpretation Comments MAGNESIUM (BEAKER) (test code = 1.8 mg/dL 1.6-2.6 627) [id number] 20:36:00 Test Item Value Reference Range Interpretation Comments PHOSPHORUS (BEAKER) (test code = 3.5 mg/dL 2.3-4.7 604) LACTIC ACID, ARTERIAL, WHOLE [id number] 20:33:00 Test Item Value Reference Range Interpretation Comments LACTATE BLOOD ARTERIAL (2) 0.8 mmol/L 0.5-2.2 (BEAKER) (test code = 2874) Effective 01/04/2016: Units/Reference Range ChangeNew: 0.5-2.2 mmol/L Previous: 5-20 mg/dLSpecimen slightly ictericBLOOD GAS, [id number] 20:20:00 Test Item Value Reference Range Interpretation [...] (test code = 1819) 40.0 % GLUCOSE-STAT [id number] 20:20:00 Test Item Value Reference Range Interpretation Comments GLUCOSE RANDOM (BEAKER) (test code 180 mg/dL 70-110 H = 652) [id number] 18:34:00 Test Item Value Reference Range Interpretation Comments GLUCOSE RANDOM (BEAKER) (test code 218 mg/dL 70-105 H = 652) BLOOD GAS, [id number] 18:18:00 Test Item Value Reference Range Interpretation [...] (BEAKER) (test code = 1819) 40.0 % [id number] 17:12:00 Test Item Value Reference Range Interpretation Comments PARTIAL THROMBOPLASTIN TIME 54.1 seconds 22.5-36.0 H (BEAKER) (test code = 760) [id number] 17:12:00 Test Item Value Reference Range Interpretation Comments FIBRINOGEN LEVEL (BEAKER) (test 285 mg/dl 225-434 code = 658) PROTHROMBIN [id number] 17:10:00 Test Item Value Reference Range Interpretation [...] ChangeNew: 0.5-2.2 mmol/L Previous: 5-20 mg/dLSpecimen slightly [id number] 17:01:00 Test Item Value Reference Range Interpretation Comments POTASSIUM (BEAKER) (test code = 4.5 meq/L 3.5-5.1 379) [id number] 17:01:00 Test Item Value Reference Range Interpretation Comments GLUCOSE RANDOM (BEAKER) (test code 239 mg/dL 70-105 H = 652) PLATELET [id number] 16:46:00 Test Item Value Reference Range Interpretation Comments PLATELET COUNT (BEAKER) (test code 86 K/CU MM 150-450 L = 756) BLOOD GAS, [id number] 16:36:00 Test Item Value Reference Range Interpretation [...] (test 37.0 C code = 1818) CALCIUM, [id number] 16:36:00 Test Item Value Reference Range Interpretation Comments CALCIUM IONIZED (BEAKER) (test 1.08 mmol/L 1.12-1.27 L code = 698) PH, BLOOD (BEAKER) (test code = 7.46 1810) [id number] 15:00:00 Test Item Value Reference Range Interpretation Comments POTASSIUM (BEAKER) (test code = 4.7 meq/L 3.5-5.1 379) [id number] 15:00:00 Test Item Value Reference Range Interpretation Comments GLUCOSE RANDOM (BEAKER) (test code 210 mg/dL 70-105 H = 652) BLOOD GAS, [id number] 14:42:00 Test Item Value Reference Range Interpretation [...] 40.0 % RAD, CHEST, 1 VIEW, NON [id number] 14:41:00Reason for exam:->chest tube insertionFINAL REPORT CHEST [...] MDReport Verified Date/Time: 01/12/2018 14:41:22 Reading Location: [facility] C013T Transitional Reading Room MBOELASTOGRAPH (TEG)2018-01-12 12:43:00 [...] (test 0.0 % 0.0-5.0 code = 1414) [id number] 11:23:00 Test Item Value Reference Range Interpretation [...] exclusion of thrombosis is within 95-100% range. [id number] 10:10:00 Test Item Value Reference Range Interpretation Comments MAGNESIUM (BEAKER) 2.1 mg/dL 1.6-2.6 Specimen slightly (test code = 627) hemolyzed [id number] 10:10:00 Test Item Value Reference Range Interpretation Comments PHOSPHORUS (BEAKER) 4.2 mg/dL 2.3-4.7 Specimen slightly (test code = 604) hemolyzed [id number] 10:10:00 Test Item Value Reference Range Interpretation Comments POTASSIUM (BEAKER) 5.0 meq/L 3.5-5.1 Specimen slightly (test code = 379) hemolyzed [id number] 10:10:00 Test Item Value Reference Range Interpretation Comments GLUCOSE RANDOM (BEAKER) (test code 204 mg/dL 70-105 H = 652) [id number] 10:07:00 Test Item Value Reference Range Interpretation Comments FIBRINOGEN LEVEL (BEAKER) (test 251 mg/dl 225-434 code = 658) ANTITHROMBIN [id number] 10:04:00 Test Item Value Reference Range Interpretation Comments ANTITHROMBIN III ACTIVITY (BEAKER) 46.0 % 80.0-120.0 L (test code = 711) [id number] 09:58:00 Test Item Value Reference Range Interpretation Comments PARTIAL THROMBOPLASTIN TIME 59.8 seconds 22.5-36.0 H (BEAKER) (test code = 760) PROTHROMBIN [id number] 09:57:00 Test Item Value Reference Range Interpretation Comments PROTIME (BEAKER) (test code = 19.3 seconds 11.7-14.7 H 759) INR (BEAKER) (test code = 370) 1.6 <=5.9 RECOMMENDED COUMADIN/WARFARIN INR THERAPY RANGESSTANDARD DOSE: 2.0 - 3.0 Includes: PROPHYLAXIS forvenous thrombosis, systemic embolization; TREATMENT for venous thrombosis and/or pulmonary embolus.HIGH RISK: Target INR is 2.5-3.5 for patients with mechanical heart valves.PLATELET [id number] 09:49:00 Test Item Value Reference Range Interpretation Comments PLATELET COUNT (BEAKER) (test code 94 K/CU MM 150-450 L = 756) BLOOD GAS, [id number] 09:47:00 Test Item Value Reference Range Interpretation [...] (test code = 1819) 40.0 % CALCIUM, [id number] 09:46:00 Test Item Value Reference Range Interpretation Comments CALCIUM IONIZED (BEAKER) (test 1.12 mmol/L 1.12-1.27 code = 698) PH, BLOOD (BEAKER) (test code = 7.47 1810) HEPARIN ASSAY - [id number] 08:21:00 Test Item Value Reference Range Interpretation Comments UNFRACTIONATED HEPARIN-ANTI 10A < u/ml 0.30-0.70 L (BEAKER) (test code = 1606) Recommendations for Monitoring Unfractionated Heparin Therapeutic Range: 0.3- 0.7 u/mL with continuous IV infusionLACTATE DEHYDROGENASE (LDH)2018-01-12 07:40:00 Test Item Value Reference Range Interpretation Comments LACTATE DEHYDROGENASE (BEAKER) (test 3247 U/L 125-220 H code = 635) [id number] 07:38:00 Test Item Value Reference Range Interpretation Comments MAGNESIUM (BEAKER) (test code = 2.3 mg/dL 1.6-2.6 627) [id number] 07:38:00 Test Item Value Reference Range Interpretation Comments GLUCOSE RANDOM (BEAKER) (test code 217 mg/dL 70-105 H = 652) LACTIC ACID, ARTERIAL, WHOLE [id number] 07:27:00 Test Item Value Reference Range Interpretation Comments LACTATE BLOOD ARTERIAL (2) 1.4 mmol/L 0.5-2.2 (BEAKER) (test code = 2874) Effective 01/04/2016: Units/Reference Range ChangeNew: 0.5-2.2 mmol/L Previous: 5-20 mg/dLSpecimen slightly ictericGLUCOSE-STAT [id number] 06:55:00 Test Item Value Reference Range Interpretation Comments GLUCOSE RANDOM (BEAKER) (test code 212 mg/dL 70-110 H = 652) BLOOD GAS, [id number] 06:55:00 Test Item Value Reference Range Interpretation [...] (test code = 1819) 40.0 % POTASSIUM-STAT [id number] 06:52:00 Test Item Value Reference Range Interpretation Comments POTASSIUM (BEAKER) (test code = 4.8 meq/L 3.6-5.5 379) BLOOD GAS, [id number] 06:43:00 Test Item Value Reference Range Interpretation [...] 100.0 % RAD, CHEST, 1 VIEW, NON [id number] 06:14:00Reason for exam:- >impella/ECMO/intubationShould this be performed [...] [place] Verified Date/Time: 01/12/2018 06:14:29 Reading Location: [facility] C013T Transitional Reading Room LACTATE DEHYDROGENASE (LDH)2018-01-12 05:03:00 Test Item Value Reference Range Interpretation Comments LACTATE DEHYDROGENASE (BEAKER) (test 3014 U/L 125-220 H code = 635) HEPATIC FUNCTION [id number] 05:03:00 Test Item Value Reference Range Interpretation [...] 1544 U/L 6-55 H 347) Specimen slightly [id number] 05:01:00 Test Item Value Reference Range Interpretation Comments PHOSPHORUS (BEAKER) (test code = 5.0 mg/dL 2.3-4.7 H 604) [id number] 05:01:00 Test Item Value Reference Range Interpretation Comments MAGNESIUM (BEAKER) (test code = 2.1 mg/dL 1.6-2.6 627) [id number] 05:01:00 Test Item Value Reference Range Interpretation Comments CALCIUM (BEAKER) (test code = 697) 8.5 mg/dL 8.4-10.2 BASIC METABOLIC [id number] 05:01:00 Test Item Value Reference Range Interpretation [...] TS. Specimen slightly ictericLACTIC ACID, ARTERIAL, WHOLE [id number] 04:42:00 Test Item Value Reference Range Interpretation Comments LACTATE BLOOD ARTERIAL (2) 1.5 mmol/L 0.5-2.2 (BEAKER) (test code = 2874) Effective 01/04/2016: Units/Reference Range ChangeNew: 0.5-2.2 mmol/L Previous: 5-20 mg/dLSpecimen slightly [id number] 04:38:00 Test Item Value Reference Range Interpretation Comments FIBRINOGEN LEVEL (BEAKER) (test 252 mg/dl 225-434 code = 658) [id number] 04:38:00 Test Item Value Reference Range Interpretation Comments PARTIAL THROMBOPLASTIN TIME 54.6 seconds 22.5-36.0 H (BEAKER) (test code = 760) CBC W/PLT COUNT & AUTO [id number] 04:37:00 Test Item Value Reference Range Interpretation [...] PERCENT (BEAKER) (test code = 2801) PROTHROMBIN [id number] 04:37:00 Test Item Value Reference Range Interpretation Comments PROTIME (BEAKER) (test code = 19.9 seconds 11.7-14.7 H 759) INR (BEAKER) (test code = 370) 1.7 <=5.9 RECOMMENDED COUMADIN/WARFARIN INR THERAPY RANGESSTANDARD DOSE: 2.0 - 3.0 Includes: PROPHYLAXIS forvenous thrombosis, systemic embolization; TREATMENT for venous thrombosis and/or pulmonary embolus.HIGH RISK: Target INR is 2.5-3.5 for patients with mechanical heart valves.CALCIUM, [id number] 04:31:00 Test Item Value Reference Range Interpretation Comments CALCIUM IONIZED (BEAKER) (test 1.12 mmol/L 1.12-1.27 code = 698) PH, BLOOD (BEAKER) (test code = 7.42 1810) BLOOD GAS, [id number] 04:30:00 Test Item Value Reference Range Interpretation [...] (test code = 1819) 40.0 % PLATELET [id number] 04:23:00 Test Item Value Reference Range Interpretation Comments PLATELET COUNT (BEAKER) (test 110 K/CU MM 150-450 L code = 756) OXYGEN SATURATION, [id number] 04:14:00 Test Item Value Reference Range Interpretation Comments O2 SATURATION (MEASURED) (BEAKER) 79.7 % (test code = 1455) [id number] 02:54:00 Test Item Value Reference Range Interpretation Comments PARTIAL THROMBOPLASTIN TIME 134.3 seconds 22.5-36.0 H (BEAKER) (test code = 760) [id number] 02:25:00 Test Item Value Reference Range Interpretation Comments PARTIAL THROMBOPLASTIN TIME 94.0 seconds 22.5-36.0 H (BEAKER) (test code = 760) BLOOD GAS, [id number] 01:56:00 Test Item Value Reference Range Interpretation [...] (test code = 1819) 40.0 % GLUCOSE-STAT [id number] 01:53:00 Test Item Value Reference Range Interpretation Comments GLUCOSE RANDOM (BEAKER) (test code 201 mg/dL 70-110 H = 652) POTASSIUM-STAT [id number] 01:52:00 Test Item Value Reference Range Interpretation Comments POTASSIUM (BEAKER) (test code = 4.9 meq/L 3.6-5.5 379) LACTIC ACID, ARTERIAL, WHOLE [id number] 01:18:00 Test Item Value Reference Range Interpretation Comments LACTATE BLOOD ARTERIAL (2) 2.0 mmol/L 0.5-2.2 (BEAKER) (test code = 2874) Effective 01/04/2016: Units/Reference Range ChangeNew: 0.5-2.2 mmol/L Previous: 5-20 mg/dLSpecimen slightly [id number] 01:18:00 Test Item Value Reference Range Interpretation Comments POTASSIUM (BEAKER) (test code = 5.1 meq/L 3.5-5.1 379) [id number] 01:18:00 Test Item Value Reference Range Interpretation Comments GLUCOSE RANDOM (BEAKER) (test code 194 mg/dL 70-105 H = 652) PROTHROMBIN [id number] 01:15:00 Test Item Value Reference Range Interpretation Comments PROTIME (BEAKER) (test code = 21.2 seconds 11.7-14.7 H 759) INR (BEAKER) (test code = 370) 1.8 <=5.9 RECOMMENDED COUMADIN/WARFARIN INR THERAPY RANGESSTANDARD DOSE: 2.0 - 3.0 Includes: PROPHYLAXIS forvenous thrombosis, systemic embolization; TREATMENT for venous thrombosis and/or pulmonary embolus.HIGH RISK: Target INR is 2.5-3.5 for patients with mechanical heart valves.[id number] 01:15:00 Test Item Value Reference Range Interpretation Comments FIBRINOGEN LEVEL (BEAKER) (test 233 mg/dl 225-434 code = 658) PLATELET [id number] 01:01:00 Test Item Value Reference Range Interpretation Comments PLATELET COUNT (BEAKER) (test code 84 K/CU MM 150-450 L = 756) BLOOD GAS, [id number] 01:00:00 Test Item Value Reference Range Interpretation [...] (test code = 1819) 40.0 % CALCIUM, [id number] 01:00:00 Test Item Value Reference Range Interpretation [...] 0.0-5.0 (BEAKER) (test code = 1414) GLUCOSE-STAT [id number] 23:53:00 Test Item Value Reference Range Interpretation Comments GLUCOSE RANDOM (BEAKER) (test code 182 mg/dL 70-110 H = 652) BLOOD GAS, [id number] 23:52:00 Test Item Value Reference Range Interpretation [...] FIO2 (BEAKER) (test code = 1819) 40 [id number] 23:05:00 Test Item Value Reference Range Interpretation Comments PARTIAL THROMBOPLASTIN TIME > seconds 22.5-36.0 HH (BEAKER) (test code = 760) BLOOD GAS, [id number] 23:01:00 Test Item Value Reference Range Interpretation [...] (BEAKER) (test code = 1819) 100.0 % [id number] 22:46:00 Test Item Value Reference Range Interpretation Comments FIBRINOGEN LEVEL (BEAKER) (test 223 mg/dl 225-434 L code = 658) PROTHROMBIN [id number] 22:45:00 Test Item Value Reference Range Interpretation Comments PROTIME (BEAKER) (test code = 23.0 seconds 11.7-14.7 H 759) INR (BEAKER) (test code = 370) 2.0 <=5.9 RECOMMENDED COUMADIN/WARFARIN INR THERAPY RANGESSTANDARD DOSE: 2.0 - 3.0 Includes: PROPHYLAXIS forvenous thrombosis, systemic embolization; TREATMENT for venous thrombosis and/or pulmonary embolus.HIGH RISK: Target INR is 2.5-3.5 for patients with mechanical heart valves.BLOOD GAS, [id number] 22:22:00 Test Item Value Reference Range Interpretation [...] (test code = 1819) 40.0 % CALCIUM, [id number] 22:21:00 Test Item Value Reference Range Interpretation Comments CALCIUM IONIZED (BEAKER) (test 1.05 mmol/L 1.12-1.27 L code = 698) PH, BLOOD (BEAKER) (test code = 7.67 1810) PLATELET [id number] 22:21:00 Test Item Value Reference Range Interpretation Comments PLATELET COUNT (BEAKER) (test code 71 K/CU MM 150-450 L = 756) GLUCOSE-STAT [id number] 22:20:00 Test Item Value Reference Range Interpretation Comments GLUCOSE RANDOM (BEAKER) (test code 189 mg/dL 70-110 H = 652) POTASSIUM-STAT [id number] 22:19:00 Test Item Value Reference Range Interpretation [...] 2133 U/L 125-220 H code = 635) [id number] 20:55:00 Test Item Value Reference Range Interpretation Comments POTASSIUM (BEAKER) (test code = 5.4 meq/L 3.5-5.1 H 379) [id number] 20:55:00 Test Item Value Reference Range Interpretation Comments MAGNESIUM (BEAKER) (test code = 1.6 mg/dL 1.6-2.6 627) [id number] 20:55:00 Test Item Value Reference Range Interpretation Comments PHOSPHORUS (BEAKER) (test code = 2.9 mg/dL 2.3-4.7 604) GLUCOSE-STAT [id number] 20:31:00 Test Item Value Reference Range Interpretation Comments GLUCOSE RANDOM (BEAKER) (test code 166 mg/dL 70-110 H = 652) POTASSIUM-STAT [id number] 20:30:00 Test Item Value Reference Range Interpretation Comments POTASSIUM (BEAKER) (test code = 5.2 meq/L 3.6-5.5 379) BLOOD GAS, [id number] 20:30:00 Test Item Value Reference Range Interpretation [...] code = 1819) 40.0 % OXYGEN SATURATION, [id number] 18:46:00 Test Item Value Reference Range Interpretation Comments O2 SATURATION (MEASURED) (BEAKER) 81.5 % (test code = 1455) RAD, CHEST, 1 VIEW, NON [id number] 18:27:00Reason for exam:->impella/ECMO placementShould this be performed [...] pleural effusion again demonstrated. No pneumothorax. Signed: Tahir Xie MDReport Verified Date/Time: 01/11/2018 18:27:33 Reading Location: [facility] C013X Ortho Consult Reading Room [id number] 18:11:00 Test Item Value Reference Range Interpretation Comments PARTIAL THROMBOPLASTIN TIME > seconds 22.5-36.0 HH (BEAKER) (test code = 760) LACTATE DEHYDROGENASE (LDH)2018-01-11 18:09:00 Test Item Value Reference Range Interpretation Comments LACTATE DEHYDROGENASE 1590 U/L 125-220 H Specim en slightly (BEAKER) (test code = hemoly zed 635) BASIC METABOLIC [id number] 18:08:00 Test Item Value Reference Range Interpretation [...] S NOT APPLICABLE FOR DIALYSIS PATIEN TS. [id number] 17:54:00 Test Item Value Reference Range Interpretation Comments MAGNESIUM (BEAKER) 1.8 mg/dL 1.6-2.6 Specimen slightly (test code = 627) hemolyzed [id number] 17:54:00 Test Item Value Reference Range Interpretation Comments PHOSPHORUS (BEAKER) 4.6 mg/dL 2.3-4.7 Specimen slightly (test code = 604) hemolyzed LACTIC ACID, ARTERIAL, WHOLE [id number] 17:53:00 Test Item Value Reference Range Interpretation Comments LACTATE BLOOD 10.8 mmol/L 0.5-2.2 H Specimen sligh tly ARTERIAL (2) (BEAKER) hemoly zed (test code = 2874) Effective 01/04/2016: Units/Reference Range ChangeNew: 0.5-2.2 mmol/L Previous: 5-20 mg/jFR-[id number] 17:46:00 Test Item Value Reference Range Interpretation [...] exclusion of thrombosis is within 95-100% range. [id number] 17:46:00 Test Item Value Reference Range Interpretation Comments FIBRINOGEN LEVEL (BEAKER) (test 201 mg/dl 225-434 L code = 658) PROTHROMBIN [id number] 17:45:00 Test Item Value Reference Range Interpretation Comments PROTIME (BEAKER) (test code = 24.4 seconds 11.7-14.7 H 759) INR (BEAKER) (test code = 370) 2.2 <=5.9 RECOMMENDED COUMADIN/WARFARIN INR THERAPY RANGESSTANDARD DOSE: 2.0 - 3.0 Includes: PROPHYLAXIS forvenous thrombosis, systemic embolization; TREATMENT for venous thrombosis and/or pulmonary embolus.HIGH RISK: Target INR is 2.5-3.5 for patients with mechanical heart valves.BLOOD GAS, [id number] 17:44:00 Test Item Value Reference Range Interpretation [...] code = 1819) 40.0 % SODIUM NA-STAT [id number] 17:44:00 Test Item Value Reference Range Interpretation Comments SODIUM (BEAKER) (test code = 381) 134 meq/L 135-148 L POTASSIUM-STAT [id number] 17:44:00 Test Item Value Reference Range Interpretation Comments POTASSIUM (BEAKER) (test code = 6.2 meq/L 3.6-5.5 HH 379) GLUCOSE-STAT [id number] 17:44:00 Test Item Value Reference Range Interpretation Comments GLUCOSE RANDOM (BEAKER) (test code 147 mg/dL 70-110 H = 652) HGB/HCT (H&H) - STAT [id number] 17:44:00 Test Item Value Reference Range Interpretation Comments HEMOGLOBIN (BEAKER) (test code = 9.9 g/dL 13.0-16.8 L 410) HEMATOCRIT (BEAKER) (test code = 29.0 % 40.0-50.0 L 411) CALCIUM, [id number] 17:41:00 Test Item Value Reference Range Interpretation Comments CALCIUM IONIZED (BEAKER) (test 1.03 mmol/L 1.12-1.27 L code = 698) PH, BLOOD (BEAKER) (test code = 7.52 1810) OXYGEN SATURATION, [id number] 17:39:00 Test Item Value Reference Range Interpretation Comments O2 SATURATION (MEASURED) (BEAKER) 84.5 % (test code = 1455) CBC W/PLT COUNT & AUTO [id number] 17:37:00 Test Item Value Reference Range Interpretation [...] 0-1 PERCENT (BEAKER) (test code = 2801) [id number] 16:35:00 Test Item Value Reference Range Interpretation Comments ACTIVATED CLOTTING TIME 230 sec TEST ED AT [facility] 6720 (BEAKER) (test code = [place] [address]) [address] [id number] 16:35:00 Test Item Value Reference Range Interpretation Comments ACTIVATED CLOTTING TIME 191 sec TEST ED AT [facility] 6720 (BEAKER) (test code = [place] [address]) [address] BLOOD GAS, [id number] 16:20:00 Test Item Value Reference Range Interpretation [...] (test code = 1819) 100 BLOOD GAS, [id number] 16:19:00 Test Item Value Reference Range Interpretation [...] drawn from ECMO circuitLACTIC ACID, ARTERIAL, WHOLE [id number] 14:07:00 Test Item Value Reference Range Interpretation Comments LACTATE BLOOD 13.1 mmol/L 0.5-2.2 H Specimen sligh tly ARTERIAL (2) (BEAKER) hemoly zed (test code = 2874) Effective 01/04/2016: Units/Reference Range ChangeNew: 0.5-2.2 mmol/L Previous: 5-20 mg/dLPROTHROMBIN [id number] 14:01:00 Test Item Value Reference Range Interpretation Comments PROTIME (BEAKER) (test code = 20.9 seconds 11.7-14.7 H 759) INR (BEAKER) (test code = 370) 1.8 <=5.9 RECOMMENDED COUMADIN/WARFARIN INR THERAPY RANGESSTANDARD DOSE: 2.0 - 3.0 Includes: PROPHYLAXIS forvenous thrombosis, systemic embolization; TREATMENT for venous thrombosis and/or pulmonary embolus.HIGH RISK: Target INR is 2.5-3.5 for patients with mechanical heart valves.[id number] 14:01:00 Test Item Value Reference Range Interpretation Comments FIBRINOGEN LEVEL (BEAKER) (test 227 mg/dl 225-434 code = 658) PLATELET [id number] 13:54:00 Test Item Value Reference Range Interpretation Comments PLATELET COUNT (BEAKER) (test 115 K/CU MM 150-450 L code = 756) BLOOD GAS, [id number] 13:47:00 Test Item Value Reference Range Interpretation [...] (test code = 1819) 40.0 % GLUCOSE-STAT [id number] 13:47:00 Test Item Value Reference Range Interpretation Comments GLUCOSE RANDOM (BEAKER) (test code 134 mg/dL 70-110 H = 652) [id number] 12:33:00 Test Item Value Reference Range Interpretation Comments POTASSIUM (BEAKER) (test code = 5.6 meq/L 3.5-5.1 H 379) PRN - repeat glucose levels every 1 hour or as specified by insulin titration orders until glucose level is less than 450 mg/[id number] 12:33:00 Test Item Value Reference Range Interpretation Comments GLUCOSE RANDOM (BEAKER) (test code = 43 mg/dL 70-105 L 652) PRN - repeat glucose levels every 1 hour or as specified by insulin titration orders until glucose level is less than 450 mg/dLBASIC METABOLIC [id number] 11:05:00 Test Item Value Reference Range Interpretation [...] until glucose level is less than 450 mg/[id number] 11:05:00 Test Item Value Reference Range Interpretation Comments GLUCOSE RANDOM (BEAKER) (test code = 34 mg/dL 70-105 LL 652) [id number] 10:44:00 Test Item Value Reference Range Interpretation Comments POTASSIUM (BEAKER) (test code = 5.9 meq/L 3.5-5.1 H 379) HEPATIC FUNCTION [id number] 10:44:00 Test Item Value Reference Range Interpretation [...] Previous: 5-20 mg/dLCBC W/PLT COUNT & AUTO [id number] 10:23:00 Test Item Value Reference Range Interpretation [...] (BEAKER) (test code = 2801) BLOOD GAS, [id number] 10:20:00 Test Item Value Reference Range Interpretation [...] (BEAKER) (test code = 1819) 40.0 % [id number] 09:01:00 Test Item Value Reference Range Interpretation Comments POTASSIUM (BEAKER) (test code = 5.9 meq/L 3.5-5.1 H 379) PRN - repeat glucose levels every 1 hour or as specified by insulin titration orders until glucose level is less than 450 mg/[id number] 09:01:00 Test Item Value Reference Range Interpretation Comments MAGNESIUM (BEAKER) (test code = 1.7 mg/dL 1.6-2.6 627) PRN - repeat glucose levels every 1 hour or as specified by insulin titration orders until glucose level is less than 450 mg/[id number] 09:01:00 Test Item Value Reference Range Interpretation Comments PHOSPHORUS (BEAKER) (test code = 4.7 mg/dL 2.3-4.7 604) PRN - repeat glucose levels every 1 hour or as specified by insulin titration orders until glucose level is less than 450 mg/[id number] 09:01:00 Test Item Value Reference Range Interpretation Comments GLUCOSE RANDOM (BEAKER) (test code = 50 mg/dL 70-105 L 652) PRN - repeat glucose levels every 1 hour or as specified by insulin titration orders until glucose level is less than 450 mg/dLCALCIUM, [id number] 08:47:00 Test Item Value Reference Range Interpretation Comments CALCIUM IONIZED (BEAKER) (test 1.24 mmol/L 1.12-1.27 code = 698) PH, BLOOD (BEAKER) (test code = 7.31 1810) [id number] 08:45:00 Test Item Value Reference Range Interpretation Comments PARTIAL THROMBOPLASTIN TIME 53.7 seconds 22.5-36.0 H (BEAKER) (test code = 760) BLOOD GAS, [id number] 08:41:00 Test Item Value Reference Range Interpretation [...] (test code = 1819) 40.0 % PH, [id number] 08:41:00 Test Item Value Reference Range Interpretation Comments PH ARTERIAL (BEAKER) (test code = 383) 7.31 7.35-7.45 L RAD, CHEST, 1 VIEW, NON [id number] 07:31:00Reason for exam:->s/p cardiac surgeryShould this be [...] discrete consolidation and no pneumothorax demonstrated. Signed: Tahir Xieeport VerifiedDate/Time: 01/11/2018 07:31:38 Reading Location: [address] Consult Reading Room BLOOD GAS, ARTERIAL 2018-01-11 [...] code = 1819) 40.0 % BASIC METABOLIC [id number] 06:12:00 Test Item Value Reference Range Interpretation [...] NOT APPLICABLE FOR DIALYSIS PATIEN TS. POCT-GLUCOSE [id number] 05:58:00 Test Item Value Reference Range Interpretation Comments POC-GLUCOSE METER 121 mg/dL 70-110 H TESTED AT [facility] 6720 (BEAKER) (test code = [place] [address]) [address] POCT-GLUCOSE [id number] 05:58:00 Test Item Value Reference Range Interpretation Comments POC-GLUCOSE METER 66 mg/dL 70-110 L Will Repea t Test/TESTED (BEAKER) (test code = AT [facility] [address] [place], [place] [address]) [facility] [address] [id number] 05:51:00 Test Item Value Reference Range Interpretation Comments PHOSPHORUS (BEAKER) (test code = 3.5 mg/dL 2.3-4.7 604) [id number] 05:51:00 Test Item Value Reference Range Interpretation Comments MAGNESIUM (BEAKER) (test code = 1.9 mg/dL 1.6-2.6 627) BLOOD GAS, [id number] 05:47:00 Test Item Value Reference Range Interpretation [...] (test code = 1819) 40.0 % POCT-GLUCOSE [id number] 05:27:00 Test Item Value Reference Range Interpretation Comments POC-GLUCOSE METER 112 mg/dL 70-110 H TESTED AT [place] [address] (BEAKER) (test code = [place] [facility] 1538) [address] POCT-GLUCOSE [id number] 05:27:00 Test Item Value Reference Range Interpretation Comments POC-GLUCOSE METER 106 mg/dL 70-110 [facility] [place] [address] [facility] (test code = [place] [facility] 1538) [address] POCT-GLUCOSE [id number] 05:26:00 Test Item Value Reference Range Interpretation Comments POC-GLUCOSE METER 66 mg/dL 70-110 L TESTED AT [place] [address] ([facility] (test code = MARIA GSC R [facility] [address]) LACTIC ACID, ARTERIAL, WHOLE [id number] 04:59:00 Test Item Value Reference Range Interpretation Comments LACTATE BLOOD 12.2 mmol/L 0.5-2.2 H Specimen sligh tly ARTERIAL (2) (BEAKER) hemoly zed (test code = 2874) Effective 01/04/2016: Units/Reference Range ChangeNew: 0.5-2.2 mmol/L Previous: 5-20 mg/dLCALCIUM, [id number] 04:57:00 Test Item Value Reference Range Interpretation Comments CALCIUM IONIZED (BEAKER) (test 1.33 mmol/L 1.12-1.27 H code = 698) PH, BLOOD (BEAKER) (test code = 7.30 1810) BLOOD GAS, [id number] 04:57:00 Test Item Value Reference Range Interpretation [...] code = 1819) 45.0 % OXYGEN SATURATION, [id number] 04:56:00 Test Item Value Reference Range Interpretation Comments O2 SATURATION (MEASURED) (BEAKER) 83.2 % (test code = 1455) CBC W/PLT COUNT & AUTO [id number] 04:56:00 Test Item Value Reference Range Interpretation [...] PERCENT (BEAKER) (test code = 2801) CALCIUM, [id number] 03:38:00 Test Item Value Reference Range Interpretation Comments CALCIUM IONIZED (BEAKER) (test 1.32 mmol/L 1.12-1.27 H code = 698) PH, BLOOD (BEAKER) (test code = 7.29 1810) BLOOD GAS, [id number] 03:36:00 Test Item Value Reference Range Interpretation [...] 1819) 50.0 % HGB/HCT (H&H) - STAT [id number] 03:36:00 Test Item Value Reference Range Interpretation Comments HEMOGLOBIN (BEAKER) (test code = 12.5 g/dL 13.0-16.8 L 410) HEMATOCRIT (BEAKER) (test code = 37.0 % 40.0-50.0 L 411) OXYGEN SATURATION, [id number] 03:35:00 Test Item Value Reference Range Interpretation Comments O2 SATURATION (MEASURED) (BEAKER) 80.3 % (test code = 1455) GLUCOSE-STAT [id number] 03:34:00 Test Item Value Reference Range Interpretation Comments GLUCOSE RANDOM (BEAKER) (test code = 91 mg/dL 70-110 652) SODIUM NA-STAT [id number] 03:34:00 Test Item Value Reference Range Interpretation Comments SODIUM (BEAKER) (test code = 381) 137 meq/L 135-148 POTASSIUM-STAT [id number] 03:34:00 Test Item Value Reference Range Interpretation Comments POTASSIUM (BEAKER) (test code = 4.6 meq/L 3.6-5.5 379) BLOOD GAS, [id number] 03:01:00 Test Item Value Reference Range Interpretation [...] 1819) 50.0 % HGB/HCT (H&H) - STAT [id number] 03:01:00 Test Item Value Reference Range Interpretation Comments HEMOGLOBIN (BEAKER) (test code = 12.0 g/dL 13.0-16.8 L 410) HEMATOCRIT (BEAKER) (test code = 35.0 % 40.0-50.0 L 411) POTASSIUM-STAT [id number] 03:00:00 Test Item Value Reference Range Interpretation Comments POTASSIUM (BEAKER) (test code = 5.0 meq/L 3.6-5.5 379) GLUCOSE-STAT [id number] 03:00:00 Test Item Value Reference Range Interpretation Comments GLUCOSE RANDOM (BEAKER) (test code 102 mg/dL 70-110 = 652) SODIUM NA-STAT [id number] 03:00:00 Test Item Value Reference Range Interpretation Comments SODIUM (BEAKER) (test code = 381) 140 meq/L 135-148 LACTIC ACID, ARTERIAL, WHOLE [id number] 01:53:00 Test Item Value Reference Range Interpretation Comments LACTATE BLOOD 9.4 mmol/L 0.5-2.2 H Specimen sligh tly ARTERIAL (2) (BEAKER) hemoly zed (test code = 2874) Effective 01/04/2016: Units/Reference Range ChangeNew: 0.5-2.2 mmol/L Previous: 5-20 mg/dLGLUCOSE-STAT [id number] 01:27:00 Test Item Value Reference Range Interpretation Comments GLUCOSE RANDOM (BEAKER) (test code = 99 mg/dL 70-110 652) BLOOD GAS, [id number] 01:27:00 Test Item Value Reference Range Interpretation [...] 1819) 100.0 % HGB/HCT (H&H) - STAT [id number] 01:27:00 Test Item Value Reference Range Interpretation Comments HEMOGLOBIN (BEAKER) (test code = 12.7 g/dL 13.0-16.8 L 410) HEMATOCRIT (BEAKER) (test code = 37.0 % 40.0-50.0 L 411) SODIUM NA-STAT [id number] 01:26:00 Test Item Value Reference Range Interpretation Comments SODIUM (BEAKER) (test code = 381) 141 meq/L 135-148 POTASSIUM-STAT [id number] 01:26:00 Test Item Value Reference Range Interpretation Comments POTASSIUM (BEAKER) (test code = 3.6 meq/L 3.6-5.5 379) [id number] 00:38:00 Test Item Value Reference Range Interpretation Comments PARTIAL THROMBOPLASTIN TIME 47.4 seconds 22.5-36.0 H (BEAKER) (test code = 760) [id number] 00:35:00 Test Item Value Reference Range Interpretation Comments POTASSIUM (BEAKER) 3.5 meq/L 3.5-5.1 Specimen slightly (test code = 379) hemolyzed CALCIUM, [id number] 00:25:00 Test Item Value Reference Range Interpretation [...] = 1414) RAD, CHEST, 1 VIEW, NON [id number] 22:36:00Reason for exam:->s/p BronchoscopyFINAL REPORT CLINICAL INDICATION: Post bronchoscopy Comparison: Same date ri7773 hours There is improved aeration of the right upper lobe. No pneumothorax is present. Hazy opacity in the right upper lobe and in the retrocardiac lower lungs may reflect atelectasis but pneumonitis should be excluded clinically. The cardiomediastinal contours are stable. Support lines are stable. Signed: Kellen Parra MDReport Verified Date/Time: 01/10/2018 22:36:29 Reading Location: [address] Reading Room C METABOLIC [id number] 22:01:00 Test Item Value Reference Range Interpretation [...] S NOT APPLICABLE FOR DIALYSIS PATIEN TS. [id number] 22:00:00 Test Item Value Reference Range Interpretation Comments MAGNESIUM (BEAKER) 2.4 mg/dL 1.6-2.6 Specimen slightly (test code = 627) hemolyzed [id number] 22:00:00 Test Item Value Reference Range Interpretation Comments PHOSPHORUS (BEAKER) 3.2 mg/dL 2.3-4.7 Specimen slightly (test code = 604) hemolyzed LACTIC ACID, ARTERIAL, WHOLE [id number] 21:57:00 Test Item Value Reference Range Interpretation Comments LACTATE BLOOD 10.2 mmol/L 0.5-2.2 H Specimen sligh tly ARTERIAL (2) (BEAKER) hemoly zed (test code = 2874) Effective 01/04/2016: Units/Reference Range ChangeNew: 0.5-2.2 mmol/L Previous: 5-20 mg/dLCBC W/PLT COUNT & AUTO [id number] 21:51:00 Test Item Value Reference Range Interpretation [...] 0-1 PERCENT (BEAKER) (test code = 2801) [id number] 21:49:00 Test Item Value Reference Range Interpretation Comments PARTIAL THROMBOPLASTIN TIME 41.2 seconds 22.5-36.0 H (BEAKER) (test code = 760) PROTHROMBIN [id number] 21:48:00 Test Item Value Reference Range Interpretation Comments PROTIME (BEAKER) (test code = 19.8 seconds 11.7-14.7 H 759) INR (BEAKER) (test code = 370) 1.7 <=5.9 RECOMMENDED COUMADIN/WARFARIN INR THERAPY RANGESSTANDARD DOSE: 2.0 - 3.0 Includes: PROPHYLAXIS forvenous thrombosis, systemic embolization; TREATMENT for venous thrombosis and/or pulmonary embolus.HIGH RISK: Target INR is 2.5-3.5 for patients with mechanical heart valves.[id number] 21:48:00 Test Item Value Reference Range Interpretation Comments FIBRINOGEN LEVEL (BEAKER) (test 221 mg/dl 225-434 L code = 658) CALCIUM, [id number] 21:33:00 Test Item Value Reference Range Interpretation Comments CALCIUM IONIZED (BEAKER) (test 1.54 mmol/L 1.12-1.27 H code = 698) PH, BLOOD (BEAKER) (test code = 7.33 1810) OXYGEN SATURATION, [id number] 21:33:00 Test Item Value Reference Range Interpretation Comments O2 SATURATION (MEASURED) (BEAKER) 67.1 % (test code = 1455) GLUCOSE-STAT [id number] 21:32:00 Test Item Value Reference Range Interpretation Comments GLUCOSE RANDOM (BEAKER) (test code = 98 mg/dL 70-110 652) SODIUM NA-STAT [id number] 21:32:00 Test Item Value Reference Range Interpretation Comments SODIUM (BEAKER) (test code = 381) 139 meq/L 135-148 POTASSIUM-STAT [id number] 21:32:00 Test Item Value Reference Range Interpretation Comments POTASSIUM (BEAKER) (test code = 3.6 meq/L 3.6-5.5 379) BLOOD GAS, [id number] 21:32:00 Test Item Value Reference Range Interpretation [...] 1819) 60.0 % HGB/HCT (H&H) - STAT [id number] 21:32:00 Test Item Value Reference Range Interpretation Comments HEMOGLOBIN (BEAKER) (test code = 8.2 g/dL 13.0-16.8 L 410) HEMATOCRIT (BEAKER) (test code = 24.0 % 40.0-50.0 L 411) RAD, CHEST, 1 VIEW, NON [id number] 21:32:00Reason for exam:->s/p cardiac surgeryShould this be [...] the level of the clavicles. Right IJ [place] catheter terminatesin the distal right pulmonary artery. The soft tissues and osseous structures are intact. IMPRESSION: Postoperative changes with right upper lobe collapse, likely secondary to mucous plugging. Supporting lines and tubes as described above. Note position of the [place]-Moni catheter. Signed: Nigel Musaort Verified Date/Time: 01/10/2018 21:32:31 Reading Location: [address] Consult Reading Room THROMBOELASTOGRAPH (TEG)2018-01-10 21:01:00 [...] 55.0-65.0 L (test code = 1413) CALCIUM, [id number] 20:42:00 Test Item Value Reference Range Interpretation Comments CALCIUM IONIZED (BEAKER) (test 1.41 mmol/L 1.12-1.27 H code = 698) PH, BLOOD (BEAKER) (test code = 7.41 1810) SODIUM NA-STAT [id number] 20:41:00 Test Item Value Reference Range Interpretation Comments SODIUM (BEAKER) (test code = 381) 138 meq/L 135-148 POTASSIUM-STAT [id number] 20:41:00 Test Item Value Reference Range Interpretation Comments POTASSIUM (BEAKER) (test code = 3.7 meq/L 3.6-5.5 379) BLOOD GAS, [id number] 20:41:00 Test Item Value Reference Range Interpretation [...] (test code = 1819) 100.0 % GLUCOSE-STAT [id number] 20:41:00 Test Item Value Reference Range Interpretation Comments GLUCOSE RANDOM (BEAKER) (test code 120 mg/dL 70-110 H = 652) HGB/HCT (H&H) - STAT [id number] 20:41:00 Test Item Value Reference Range Interpretation Comments HEMOGLOBIN (BEAKER) (test code = 7.8 g/dL 13.0-16.8 L 410) HEMATOCRIT (BEAKER) (test code = 23.0 % 40.0-50.0 L 411) [id number] 20:23:00 Test Item Value Reference Range Interpretation Comments FIBRINOGEN LEVEL (BEAKER) (test 239 mg/dl 225-434 code = 658) [id number] 20:23:00 Test Item Value Reference Range Interpretation Comments PARTIAL THROMBOPLASTIN TIME 38.6 seconds 22.5-36.0 H (BEAKER) (test code = 760) PROTHROMBIN [id number] 20:22:00 Test Item Value Reference Range Interpretation Comments PROTIME (BEAKER) (test code = 21.6 seconds 11.7-14.7 H 759) INR ([facility]) (test code = 370) 1.9 <=5.9 RECOMMENDED COUMADIN/WARFARIN INR THERAPY RANGESSTANDARD DOSE: 2.0 - 3.0 Includes: PROPHYLAXIS forvenous thrombosis, systemic embolization; TREATMENT for venous thrombosis and/or pulmonary embolus.HIGH RISK: Target INR is 2.5-3.5 for patients with mechanical heart valves.[id number] 20:16:00 Test Item Value Reference Range Interpretation Comments ACTIVATED CLOTTING TIME 114 sec TEST ED AT [place] [address] ([facility]) (test code = [facility] [facility] 441) [id number] 20:16:00 Test Item Value Reference Range Interpretation Comments ACTIVATED CLOTTING TIME 499 sec TEST ED AT [place] [address] ([facility]) (test code = [place] GT[place] [address]) [id number] 20:16:00 Test Item Value Reference Range Interpretation Comments ACTIVATED CLOTTING TIME 483 sec TEST ED AT [place] [address] ([facility]) (test code = MARIA GT[place]MI [place] [address]) [id number] 20:16:00 Test Item Value Reference Range Interpretation Comments ACTIVATED CLOTTING TIME 538 sec TEST ED AT [place] [address] ([facility]) (test code = MARIA GTAMMI [place] [facility] 441) [id number] 20:16:00 Test Item Value Reference Range Interpretation Comments ACTIVATED CLOTTING TIME 615 sec TEST ED AT [place] [address] ([facility]) (test code = [place] 441) [id number] 20:16:00 Test Item Value Reference Range Interpretation Comments ACTIVATED CLOTTING TIME 692 sec TEST ED AT [place] [address] ([facility]) (test code = [place] 441) [id number] 20:16:00 Test Item Value Reference Range Interpretation Comments ACTIVATED CLOTTING TIME 428 sec TEST ED AT [place] [address] ([facility]) (test code = [place] 441) [address] [id number] 20:16:00 Test Item Value Reference Range Interpretation Comments ACTIVATED CLOTTING TIME 373 sec TEST ED AT [place] [address] ([facility]) (test code = [place] 441) [address] [id number] 20:16:00 Test Item Value Reference Range Interpretation Comments ACTIVATED CLOTTING TIME 455 sec TEST ED AT [place] [address] ([facility]) (test code = [place] 441) [address] [id number] 20:16:00 Test Item Value Reference Range Interpretation Comments ACTIVATED CLOTTING TIME 494 sec TEST ED AT [place] [address] ([facility]) (test code = [place] 441) [id number] 20:16:00 Test Item Value Reference Range Interpretation Comments ACTIVATED CLOTTING TIME 527 sec TEST ED AT [place] [address] ([facility]) (test code = [place] 441) [address] [id number] 20:16:00 Test Item Value Reference Range Interpretation Comments ACTIVATED CLOTTING TIME 610 sec TEST ED AT [place] [address] ([facility]) (test code = [place] 441) [address] [id number] 20:16:00 Test Item Value Reference Range Interpretation Comments ACTIVATED CLOTTING TIME 576 sec TEST ED AT [place] [address] ([facility]) (test code = [place] 441) [address] [id number] 20:16:00 Test Item Value Reference Range Interpretation Comments ACTIVATED CLOTTING TIME 384 sec TEST ED AT [place] [address] (BEAKER) (test code = [place] 441) [address] PLATELET [id number] 20:08:00 Test Item Value Reference Range Interpretation [...] 0.0-5.0 (BEAKER) (test code = 1414) CALCIUM, [id number] 19:59:00 Test Item Value Reference Range Interpretation Comments CALCIUM IONIZED (BEAKER) (test 1.39 mmol/L 1.12-1.27 H code = 698) PH, BLOOD (BEAKER) (test code = 7.37 1810) BLOOD GAS, [id number] 19:58:00 Test Item Value Reference Range Interpretation [...] (test code = 1819) 100.0 % GLUCOSE-STAT [id number] 19:58:00 Test Item Value Reference Range Interpretation Comments GLUCOSE RANDOM (BEAKER) (test code 143 mg/dL 70-110 H = 652) HGB/HCT (H&H) - STAT [id number] 19:58:00 Test Item Value Reference Range Interpretation Comments HEMOGLOBIN (BEAKER) (test code = 8.7 g/dL 13.0-16.8 L 410) HEMATOCRIT (BEAKER) (test code = 26.0 % 40.0-50.0 L 411) SODIUM NA-STAT [id number] 19:57:00 Test Item Value Reference Range Interpretation Comments SODIUM (BEAKER) (test code = 381) 140 meq/L 135-148 POTASSIUM-STAT [id number] 19:57:00 Test Item Value Reference Range Interpretation Comments POTASSIUM (BEAKER) (test code = 3.9 meq/L 3.6-5.5 379) [id number] 19:29:00 Test Item Value Reference Range Interpretation Comments PARTIAL THROMBOPLASTIN TIME > seconds 22.5-36.0 HH (BEAKER) (test code = 760) [id number] 19:16:00 Test Item Value Reference Range Interpretation Comments FIBRINOGEN LEVEL (BEAKER) (test 271 mg/dl 225-434 code = 658) PROTHROMBIN [id number] 19:15:00 Test Item Value Reference Range Interpretation Comments PROTIME (BEAKER) (test code = 21.3 seconds 11.7-14.7 H 759) INR (BEAKER) (test code = 370) 1.8 <=5.9 RECOMMENDED COUMADIN/WARFARIN INR THERAPY RANGESSTANDARD DOSE: 2.0 - 3.0 Includes: PROPHYLAXIS forvenous thrombosis, systemic embolization; TREATMENT for venous thrombosis and/or pulmonary embolus.HIGH RISK: Target INR is 2.5-3.5 for patients with mechanical heart valves.PLATELET [id number] 19:06:00 Test Item Value Reference Range Interpretation Comments PLATELET COUNT (BEAKER) (test code 54 K/CU MM 150-450 L = 756) BLOOD GAS, [id number] 18:49:00 Test Item Value Reference Range Interpretation [...] 1819) 100.0 % HGB/HCT (H&H) - STAT [id number] 18:44:00 Test Item Value Reference Range Interpretation Comments HEMOGLOBIN (BEAKER) (test code = 10.1 g/dL 13.0-16.8 L 410) HEMATOCRIT (BEAKER) (test code = 30.0 % 40.0-50.0 L 411) SODIUM NA-STAT [id number] 18:43:00 Test Item Value Reference Range Interpretation Comments SODIUM (BEAKER) (test code = 381) 137 meq/L 135-148 POTASSIUM-STAT [id number] 18:43:00 Test Item Value Reference Range Interpretation Comments POTASSIUM (BEAKER) (test code = 5.0 meq/L 3.6-5.5 379) GLUCOSE-STAT [id number] 18:43:00 Test Item Value Reference Range Interpretation Comments GLUCOSE RANDOM (BEAKER) (test code 187 mg/dL 70-110 H = 652) SODIUM NA-STAT [id number] 18:22:00 Test Item Value Reference Range Interpretation Comments SODIUM (BEAKER) (test code = 381) 140 meq/L 135-148 POTASSIUM-STAT [id number] 18:22:00 Test Item Value Reference Range Interpretation Comments POTASSIUM (BEAKER) (test code = 4.7 meq/L 3.6-5.5 379) BLOOD GAS, [id number] 18:22:00 Test Item Value Reference Range Interpretation [...] (test code = 1819) 60.0 % GLUCOSE-STAT [id number] 18:22:00 Test Item Value Reference Range Interpretation Comments GLUCOSE RANDOM (BEAKER) (test code 209 mg/dL 70-110 H = 652) HGB/HCT (H&H) - STAT [id number] 18:22:00 Test Item Value Reference Range Interpretation Comments HEMOGLOBIN (BEAKER) (test code = 10.2 g/dL 13.0-16.8 L 410) HEMATOCRIT (BEAKER) (test code = 30.0 % 40.0-50.0 L 411) BLOOD GAS, [id number] 17:57:00 Test Item Value Reference Range Interpretation [...] (test code = 1819) 65.0 % GLUCOSE-STAT [id number] 17:57:00 Test Item Value Reference Range Interpretation Comments GLUCOSE RANDOM (BEAKER) (test code 198 mg/dL 70-110 H = 652) HGB/HCT (H&H) - STAT [id number] 17:57:00 Test Item Value Reference Range Interpretation Comments HEMOGLOBIN (BEAKER) (test code = 10.3 g/dL 13.0-16.8 L 410) HEMATOCRIT (BEAKER) (test code = 30.0 % 40.0-50.0 L 411) SODIUM NA-STAT [id number] 17:56:00 Test Item Value Reference Range Interpretation Comments SODIUM (BEAKER) (test code = 381) 138 meq/L 135-148 POTASSIUM-STAT [id number] 17:56:00 Test Item Value Reference Range Interpretation Comments POTASSIUM (BEAKER) (test code = 4.7 meq/L 3.6-5.5 379) BLOOD GAS, [id number] 17:28:00 Test Item Value Reference Range Interpretation [...] (test code = 1819) 65.0 % GLUCOSE-STAT [id number] 17:28:00 Test Item Value Reference Range Interpretation Comments GLUCOSE RANDOM (BEAKER) (test code 223 mg/dL 70-110 H = 652) HGB/HCT (H&H) - STAT [id number] 17:28:00 Test Item Value Reference Range Interpretation Comments HEMOGLOBIN (BEAKER) (test code = 10.1 g/dL 13.0-16.8 L 410) HEMATOCRIT (BEAKER) (test code = 30.0 % 40.0-50.0 L 411) SODIUM NA-STAT [id number] 17:27:00 Test Item Value Reference Range Interpretation Comments SODIUM (BEAKER) (test code = 381) 140 meq/L 135-148 POTASSIUM-STAT [id number] 17:27:00 Test Item Value Reference Range Interpretation [...] code = 1414) HGB/HCT (H&H) - STAT [id number] 17:01:00 Test Item Value Reference Range Interpretation Comments HEMOGLOBIN (BEAKER) (test code = 10.1 g/dL 13.0-16.8 L 410) HEMATOCRIT (BEAKER) (test code = 30.0 % 40.0-50.0 L 411) BLOOD GAS, [id number] 17:00:00 Test Item Value Reference Range Interpretation [...] (test code = 1819) 65.0 % GLUCOSE-STAT [id number] 17:00:00 Test Item Value Reference Range Interpretation Comments GLUCOSE RANDOM (BEAKER) (test code 243 mg/dL 70-110 H = 652) SODIUM NA-STAT [id number] 16:59:00 Test Item Value Reference Range Interpretation Comments SODIUM (BEAKER) (test code = 381) 139 meq/L 135-148 POTASSIUM-STAT [id number] 16:59:00 Test Item Value Reference Range Interpretation Comments POTASSIUM (BEAKER) (test code = 4.6 meq/L 3.6-5.5 379) [id number] 16:47:00 Test Item Value Reference Range Interpretation Comments PARTIAL THROMBOPLASTIN TIME > seconds 22.5-36.0 HH (BEAKER) (test code = 760) BLOOD GAS, [id number] 16:18:00 Test Item Value Reference Range Interpretation [...] (test code = 1819) 65.0 % GLUCOSE-STAT [id number] 16:18:00 Test Item Value Reference Range Interpretation Comments GLUCOSE RANDOM (BEAKER) (test code 279 mg/dL 70-110 H = 652) HGB/HCT (H&H) - STAT [id number] 16:18:00 Test Item Value Reference Range Interpretation Comments HEMOGLOBIN (BEAKER) (test code = 7.0 g/dL 13.0-16.8 L 410) HEMATOCRIT (BEAKER) (test code = 21.0 % 40.0-50.0 L 411) SODIUM NA-STAT [id number] 16:17:00 Test Item Value Reference Range Interpretation Comments SODIUM (BEAKER) (test code = 381) 137 meq/L 135-148 POTASSIUM-STAT [id number] 16:17:00 Test Item Value Reference Range Interpretation Comments POTASSIUM (BEAKER) (test code = 4.6 meq/L 3.6-5.5 379) [id number] 16:15:00 Test Item Value Reference Range Interpretation Comments FIBRINOGEN LEVEL (BEAKER) (test 255 mg/dl 225-434 code = 658) PROTHROMBIN [id number] 16:14:00 Test Item Value Reference Range Interpretation Comments PROTIME (BEAKER) (test code = 20.2 seconds 11.7-14.7 H 759) INR (BEAKER) (test code = 370) 1.7 <=5.9 RECOMMENDED COUMADIN/WARFARIN INR THERAPY RANGESSTANDARD DOSE: 2.0 - 3.0 Includes: PROPHYLAXIS forvenous thrombosis, systemic embolization; TREATMENT for venous thrombosis and/or pulmonary embolus.HIGH RISK: Target INR is 2.5-3.5 for patients with mechanical heart valves.PLATELET [id number] 16:02:00 Test Item Value Reference Range Interpretation Comments PLATELET COUNT (BEAKER) (test code 57 K/CU MM 150-450 L = 756) CALCIUM, [id number] 15:51:00 Test Item Value Reference Range Interpretation Comments CALCIUM IONIZED (BEAKER) (test 0.82 mmol/L 1.12-1.27 L code = 698) PH, BLOOD (BEAKER) (test code = 7.45 1810) BLOOD GAS, [id number] 15:51:00 Test Item Value Reference Range Interpretation [...] (test code = 1819) 100.0 % GLUCOSE-STAT [id number] 15:51:00 Test Item Value Reference Range Interpretation Comments GLUCOSE RANDOM (BEAKER) (test code 190 mg/dL 70-110 H = 652) HGB/HCT (H&H) - STAT [id number] 15:51:00 Test Item Value Reference Range Interpretation Comments HEMOGLOBIN (BEAKER) (test code = 7.6 g/dL 13.0-16.8 L 410) HEMATOCRIT (BEAKER) (test code = 22.0 % 40.0-50.0 L 411) POTASSIUM-STAT [id number] 15:51:00 Test Item Value Reference Range Interpretation Comments POTASSIUM (BEAKER) (test code = 5.6 meq/L 3.6-5.5 H 379) SODIUM NA-STAT [id number] 15:50:00 Test Item Value Reference Range Interpretation Comments SODIUM (BEAKER) (test code = 381) 139 meq/L 135-148 BLOOD GAS, [id number] 15:43:00 Test Item Value Reference Range Interpretation [...] (test code = 1819) 75.0 % GLUCOSE-STAT [id number] 15:43:00 Test Item Value Reference Range Interpretation Comments GLUCOSE RANDOM (BEAKER) (test code 189 mg/dL 70-110 H = 652) HGB/HCT (H&H) - STAT [id number] 15:43:00 Test Item Value Reference Range Interpretation Comments HEMOGLOBIN (BEAKER) (test code = 8.0 g/dL 13.0-16.8 L 410) HEMATOCRIT (BEAKER) (test code = 24.0 % 40.0-50.0 L 411) POTASSIUM-STAT [id number] 15:43:00 Test Item Value Reference Range Interpretation Comments POTASSIUM (BEAKER) (test code = 5.7 meq/L 3.6-5.5 H 379) SODIUM NA-STAT [id number] 15:42:00 Test Item Value Reference Range Interpretation Comments SODIUM (BEAKER) (test code = 381) 136 meq/L 135-148 SODIUM NA-STAT [id number] 15:06:00 Test Item Value Reference Range Interpretation Comments SODIUM (BEAKER) (test code = 381) 139 meq/L 135-148 BLOOD GAS, [id number] 15:06:00 Test Item Value Reference Range Interpretation [...] (test code = 1819) 60.0 % POTASSIUM-STAT [id number] 15:06:00 Test Item Value Reference Range Interpretation Comments POTASSIUM (BEAKER) (test code = 5.8 meq/L 3.6-5.5 H 379) GLUCOSE-STAT [id number] 15:06:00 Test Item Value Reference Range Interpretation Comments GLUCOSE RANDOM (BEAKER) (test code 192 mg/dL 70-110 H = 652) HGB/HCT (H&H) - STAT [id number] 15:06:00 Test Item Value Reference Range Interpretation Comments HEMOGLOBIN (BEAKER) (test code = 8.2 g/dL 13.0-16.8 L 410) HEMATOCRIT (BEAKER) (test code = 24.0 % 40.0-50.0 L 411) POTASSIUM-STAT [id number] 14:41:00 Test Item Value Reference Range Interpretation Comments POTASSIUM (BEAKER) (test code = 5.2 meq/L 3.6-5.5 379) BLOOD GAS, [id number] 14:41:00 Test Item Value Reference Range Interpretation [...] code = 1819) 60.0 % SODIUM NA-STAT [id number] 14:41:00 Test Item Value Reference Range Interpretation Comments SODIUM (BEAKER) (test code = 381) 134 meq/L 135-148 L GLUCOSE-STAT [id number] 14:41:00 Test Item Value Reference Range Interpretation Comments GLUCOSE RANDOM (BEAKER) (test code 195 mg/dL 70-110 H = 652) HGB/HCT (H&H) - STAT [id number] 14:41:00 Test Item Value Reference Range Interpretation Comments HEMOGLOBIN (BEAKER) (test code = 8.2 g/dL 13.0-16.8 L 410) HEMATOCRIT (BEAKER) (test code = 24.0 % 40.0-50.0 L 411) BLOOD GAS, [id number] 14:10:00 Test Item Value Reference Range Interpretation [...] (test code = 1819) 60.0 % GLUCOSE-STAT [id number] 14:10:00 Test Item Value Reference Range Interpretation Comments GLUCOSE RANDOM (BEAKER) (test code 177 mg/dL 70-110 H = 652) HGB/HCT (H&H) - STAT [id number] 14:10:00 Test Item Value Reference Range Interpretation Comments HEMOGLOBIN (BEAKER) (test code = 8.5 g/dL 13.0-16.8 L 410) HEMATOCRIT (BEAKER) (test code = 25.0 % 40.0-50.0 L 411) SODIUM NA-STAT [id number] 14:09:00 Test Item Value Reference Range Interpretation Comments SODIUM (BEAKER) (test code = 381) 136 meq/L 135-148 POTASSIUM-STAT [id number] 14:09:00 Test Item Value Reference Range Interpretation Comments POTASSIUM (BEAKER) (test code = 5.0 meq/L 3.6-5.5 379) SODIUM NA-STAT [id number] 13:39:00 Test Item Value Reference Range Interpretation Comments SODIUM (BEAKER) (test code = 381) 136 meq/L 135-148 POTASSIUM-STAT [id number] 13:39:00 Test Item Value Reference Range Interpretation Comments POTASSIUM (BEAKER) (test code = 5.0 meq/L 3.6-5.5 379) BLOOD GAS, [id number] 13:39:00 Test Item Value Reference Range Interpretation [...] (test code = 1819) 60.0 % GLUCOSE-STAT [id number] 13:39:00 Test Item Value Reference Range Interpretation Comments GLUCOSE RANDOM (BEAKER) (test code 179 mg/dL 70-110 H = 652) HGB/HCT (H&H) - STAT [id number] 13:39:00 Test Item Value Reference Range Interpretation Comments HEMOGLOBIN (BEAKER) (test code = 8.1 g/dL 13.0-16.8 L 410) HEMATOCRIT (BEAKER) (test code = 24.0 % 40.0-50.0 L 411) CALCIUM, [id number] 12:31:00 Test Item Value Reference Range Interpretation Comments CALCIUM IONIZED (BEAKER) (test 1.09 mmol/L 1.12-1.27 L code = 698) PH, BLOOD (BEAKER) (test code = 7.45 1810) GLUCOSE-STAT [id number] 12:30:00 Test Item Value Reference Range Interpretation Comments GLUCOSE RANDOM (BEAKER) (test code = 93 mg/dL 70-110 652) SODIUM NA-STAT [id number] 12:30:00 Test Item Value Reference Range Interpretation Comments SODIUM (BEAKER) (test code = 381) 140 meq/L 135-148 POTASSIUM-STAT [id number] 12:30:00 Test Item Value Reference Range Interpretation Comments POTASSIUM (BEAKER) (test code = 3.9 meq/L 3.6-5.5 379) BLOOD GAS, [id number] 12:30:00 Test Item Value Reference Range Interpretation [...] 1819) 100.0 % HGB/HCT (H&H) - STAT [id number] 12:30:00 Test Item Value Reference Range Interpretation Comments HEMOGLOBIN (BEAKER) (test code = 9.3 g/dL 13.0-16.8 L 410) HEMATOCRIT (BEAKER) (test code = 27.0 % 40.0-50.0 L 411) HEMOGLOBIN [id number] 10:02:00 Test Item Value Reference Range Interpretation Comments HEMOGLOBIN A1C (BEAKER) (test code = 4.4 % 4.3-6.1 368) POCT-GLUCOSE [id number] 09:52:00 Test Item Value Reference Range Interpretation Comments POC-GLUCOSE METER 115 mg/dL 70-110 H TESTED AT [facility] [address] (BEAKER) (test code = [place]) [id number] PROTHROMBIN [id number] 02:41:00 Test Item Value Reference Range Interpretation Comments PROTIME (BEAKER) (test code = 14.9 seconds 11.7-14.7 H 759) INR (BEAKER) (test code = 370) 1.2 <=5.9 RECOMMENDED COUMADIN/WARFARIN INR THERAPY RANGESSTANDARD DOSE: 2.0 - 3.0 Includes: PROPHYLAXIS forvenous thrombosis, systemic embolization; TREATMENT for venous thrombosis and/or pulmonary embolus.HIGH RISK: Target INR is 2.5-3.5 for patients with mechanical heart valves.BASIC METABOLIC [id number] 00:29:00 Test Item Value Reference Range Interpretation [...] S NOT APPLICABLE FOR DIALYSIS PATIEN TS. [id number] 00:22:00 Test Item Value Reference Range Interpretation Comments MAGNESIUM (BEAKER) 2.5 mg/dL 1.6-2.6 Specimen slightly (test code = 627) hemolyzed [id number] 00:14:00 Test Item Value Reference Range Interpretation Comments PARTIAL THROMBOPLASTIN TIME 38.6 seconds 22.5-36.0 H (BEAKER) (test code = 760) CBC W/PLT COUNT & AUTO [id number] 00:07:00 Test Item Value Reference Range Interpretation [...] 0-1 PERCENT (BEAKER) (test code = 2801) [id number] 17:03:00 Test Item Value Reference Range Interpretation Comments THYROID STIMULATING HORMONE 1.30 uIU/mL 0.35-4.94 (BEAKER) (test code = 772) HEPATIC FUNCTION [id number] 16:43:00 Test Item Value Reference Range Interpretation [...] 69 U/L 6-55 H 347) BASIC METABOLIC [id number] 15:47:00 Test Item Value Reference Range Interpretation [...] I S NOT APPLICABLE FOR DIALYSIS PATIEN [id number] 14:57:00 Test Item Value Reference Range Interpretation Comments PARTIAL THROMBOPLASTIN TIME 82.9 seconds 22.5-36.0 H (BEAKER) (test code = 760) CBC W/PLT COUNT & AUTO [id number] 14:48:00 Test Item Value Reference Range Interpretation [...] PERCENT (BEAKER) (test code = 2801) POCT-GLUCOSE [id number] 11:13:00 Test Item Value Reference Range Interpretation Comments POC-GLUCOSE METER 207 mg/dL 70-110 H TESTED AT [place] [address] ([facility] (test code = [place] 1538) [address] POCT-GLUCOSE [id number] 08:08:00 Test Item Value Reference Range Interpretation Comments POC-GLUCOSE METER 124 mg/dL 70-110 H TESTED AT [facility] [address] ([facility] (test code = [place] 1538) [address] [id number] 06:51:00 Test Item Value Reference Range Interpretation Comments PARTIAL THROMBOPLASTIN TIME 54.6 seconds 22.5-36.0 H (BEAKER) (test code = 760) HEPATITIS B SURFACE [id number] 00:28:00 Test Item Value Reference Range Interpretation Comments HEPATITIS B SURFACE ANTIGEN (2) Nonreactive Nonreactive (BEAKER) (test code = 2585) [id number] 00:06:00 Test Item Value Reference Range Interpretation Comments PHOSPHORUS (BEAKER) (test code = 3.2 mg/dL 2.3-4.7 604) [id number] 00:03:00 Test Item Value Reference Range Interpretation Comments PARTIAL THROMBOPLASTIN TIME 36.0 seconds 22.5-36.0 (BEAKER) (test code = 760) CBC W/PLT COUNT & AUTO [id number] 23:45:00 Test Item Value Reference Range Interpretation [...] % 0-1 PERCENT (BEAKER) (test code = 280) POCT-GLUCOSE [id number] 17:39:00 Test Item Value Reference Range Interpretation Comments POC-GLUCOSE METER 116 mg/dL 70-110 H TESTED AT [facility] [address] (AKER) (test code = [facility] 1538) [address] [id number] 15:35:00 Test Item Value Reference Range Interpretation Comments THYROID STIMULATING HORMONE 1.39 uIU/mL 0.35-4.94 (BEAKER) (test code = 772) [id number] 15:06:00 Test Item Value Reference Range Interpretation Comments PARTIAL THROMBOPLASTIN TIME 31.0 seconds 22.5-36.0 (BEAKER) (test code = 760) Prior to initiating heparinPROTHROMBIN TIME/[id number] 15:05:00 Test Item Value Reference Range Interpretation Comments PROTIME (BEAKER) (test code = 14.4 seconds 11.7-14.7 759) INR (BEAKER) (test code = 370) 1.1 <=5.9 RECOMMENDED COUMADIN/WARFARIN INR THERAPY RANGESSTANDARD DOSE: 2.0 - 3.0 Includes: PROPHYLAXIS forvenous thrombosis, systemic embolization; TREATMENT for venous thrombosis and/or pulmonary embolus.HIGH RISK: Target INR is 2.5-3.5 for patients with mechanical heart valves.PLATELET [id number] 14:52:00 Test Item Value Reference Range Interpretation Comments PLATELET COUNT (JARROD) (test 109 K/CU MM 150-450 L code = 756) POCT-GLUCOSE [id number] 12:00:00 Test Item Value Reference Range Interpretation Comments POC-GLUCOSE METER 186 mg/dL 70-110 H TESTED AT [facility] 6720 (JARROD) (test code = [facility] [place] 1538) [address] RAD, CHEST, 1 VIEW, NON [id number] 11:43:00Reason for exam:->SOB, known severe MRShould this be performed at the bedside?->YesFINAL REPORT Chest one view AP 01/08/2018 11:42 AM CLINICAL INDICATION: SOB, kno wn severe MR COMPARISON: 12/02/2017 IMPRESSION: Cardiomediastinal contours are stable. There is mild pulmonary edema. There are trace bilateral pleural effusions. Signed: Yevgeniy Anderson Verified Date/Time: 01/08/2018 11:43:52 Reading Location: [facility] Radiology Reading Room Electronic ally signed by: YEVGENIY ANDERSON M.D. on 01/08/2018 11:43 AMRAPID CK-MB 2017-12-02 10:04:00 Test Item Value Reference Range Interpretation Comments RAPID CKMB (JARROD) (test code = 1.5 ng/mL 0.0-4.3 1482) RAPID TROPONIN [id number] 10:04:00 Test Item Value Reference Range Interpretation Comments RAPID TROPONIN I (JARROD) (test code < ng/mL <0.05 = 1483) RAD, CHEST, 2 [id number] 10:00:00Reason for exam:->Chest PainFINAL REPORT Chest two views Discussion: Heart size upper limits of normal. Bilateral interstitial edema with small bilateral effusions. No pneumothorax. Bones and soft tissues unremarkable. Signed: Larry Colindres Verified Date/Time: 12/02/2017 10:00:39 Reading Location:[facility] Radiology Reading Room B-TYPE NATRIURETIC FACTOR (BNP)2017-12-02 09:56:00 Test Item Value Reference Range Interpretation Comments B-TYPE NATRIURETIC PEPTIDE 1990 pg/mL 0-100 H (BEAKER) (test code = 700) BASIC METABOLIC [id number] 09:52:00 Test Item Value Reference Range Interpretation [...] S NOT APPLICABLE FOR DIALYSIS PATIEN TS. [id number] 09:51:00 Test Item Value Reference Range Interpretation Comments MAGNESIUM (BEAKER) (test code = 1.7 mg/dL 1.5-3.0 627) CBC W/PLT COUNT & AUTO [id number] 09:50:00 Test Item Value Reference Range Interpretation [...] (BEAKER) (test code = 417) CD4/CD8 Ratio [id number] 08:04:00 Test Item Value Reference Range Interpretation Comments Absolute CD 4 Aurora (test code 188 /uL 359-1519 L = 867835) % CD 4 Pos. Lymph. (test code = 37.6 % 30.8-58.5 N 412419) Abs. CD 8 Suppressor (test code 183 /uL 109-897 N = 426516) % CD 8 Pos. Lymph. (test code = 36.6 % 12.0-35.5 H 327488) CD4/CD8 Ratio (test code = 1.03 0.92-3.72 N 793181) WBC (test code = 771218) 5.0 x10E3/uL 3.4-10.8 N RBC (test code = 294862) 3.00 x10E6/uL 4.14-5.80 L Hemoglobin (test code = 658944) 9.6 g/dL 13.0-17.7 L Hematocrit (test code = 150829) 27.6 % 37.5-51.0 L MCV (test code = 474042) 92 fL 79-97 N MCH (test code = 722202) 32.0 pg 26.6-33.0 N MCHC (test code = 917606) 34.8 g/dL 31.5-35.7 N RDW (test code = 523833) 15.5 % 12.3-15.4 H Platelets (test code = 953955) 113 x10E3/uL 150-379 L Neutrophils (test code = 84 % Not Estab. N 760175) Lymphs (test code = 207113) 9 % Not Estab. N Monocytes (test code = 104803) 6 % Not Estab. N Eos (test code = 411352) 1 % Not Estab. N Basos (test code = 629774) 0 % Not Estab. N Neutrophils (Absolute) (test 4.2 x10E3/uL 1.4-7.0 N code = 734794) Lymphs (Absolute) (test code = 0.5 x10E3/uL 0.7-3.1 L 930179) Monocytes(Absolute) (test code 0.3 x10E3/uL 0.1-0.9 N = 817282) Eos (Absolute) (test code = 0.0 x10E3/uL 0.0-0.4 N 532671) Baso (Absolute) (test code = 0.0 x10E3/uL 0.0-0.2 N 418882) Immature Granulocytes (test 0 % Not Estab. N code = 285736) Immature Grans (Abs) (test code 0.0 x10E3/uL 0.0-0.1 N = 792685) Culture, Blood [id number] 08:42:00Specimen: BloodCollected: 11/19/2017 00:21 Status: Final Last Updated: 11/24/2017 08:42 Culture Result (Final) (Final) No Growth After 5 DaysCulture, Blood [id number] 08:42:00 Specimen: BloodCollected: 11/18/2017 20:30 Status: Final Last Updated: 11/24/2017 08:42 Culture Result (Final) (Final) No Growth After 5 DaysPOC Glucose, [id number] 11:51:00 Test Item Value Reference Range Interpretation Comments POC Glucose (test 148 mg/dL 70-115 H Notify RN or MDIf you code = POCGLUC) consider you r patient critically ill, the Madeline Accu-Chek InformII metershould not be used for Glucose determinations. Draw a venous Glucose and send to the Main Lab for Analysis. CK [id number] 07:42:00 Test Item Value Reference Range Interpretation Comments CK (test code = CK) na U/L 39-308 N CKMB (test code = CKMB) 4.0 ng/mL 0.0-4.9 N CKMB% (test code = CKMBP) 0.0 % 0.0-3.4 N [id number] 07:39:00 Test Item Value Reference Range Interpretation Comments NT ProBnp (test code = PBNP) >61109 pg/mL 0-124 H Troponin [id number] 07:18:00 Test Item Value Reference Range Interpretation Comments Troponin T (test code = MADHAV) 0.103 ng/mL 0.000-0.090 H Lactate [id number] 07:18:00 Test Item Value Reference Range Interpretation Comments LDH (test code = LDH) 271 U/L 135-225 H POC Glucose, [id number] 06:50:00 Test Item Value Reference Range Interpretation Comments POC Glucose (test 154 mg/dL 70-115 H Notify RN or MDIf you code = POCGLUC) consider you r patient critically ill, the Madeline Accu-Chek InformII metershould not be used for Glucose determinations. Draw a venous Glucose and send to the Main Lab for Analysis. CK [id number] 01:08:00 Test Item Value Reference Range Interpretation Comments CK (test code = CK) na U/L 39-308 N CKMB (test code = CKMB) 3.6 ng/mL 0.0-4.9 N CKMB% (test code = CKMBP) 0.0 % 0.0-3.4 N Troponin [id number] 01:08:00 Test Item Value Reference Range Interpretation Comments Troponin T (test code = MADHAV) 0.106 ng/mL 0.000-0.090 H XR CHEST 1 [id number] 21:02:01CLINICAL INFORMATION: Vascular congestion.Dictation Location: 16Comparison: 11/18/2017 showed perihilar and lower lobe opacities. Technique: Portable AP 195 hoursFINDINGS: Monitoring electrodes overlie the chest wall. Cardiomegaly withincreasing central vascular interstitial prominence with bibasilaropacities and effusions. No interval bone changes.IMPRESSION: Changes could indicate worsening cardiac decompensation orfluid overload.POC Glucose, [id number] 20:15:00 Test Item Value Reference Range Interpretation Comments POC Glucose (test 139 mg/dL 70-115 H If you con trailer rental clerk your code = POCGLUC) patient crit ically ill, the Madeline Accu- Chek InformII meters hould not be used for Glu cose determinations. Draw a venous Glucose and send to the Main Lab for Analysis. POC Glucose, [id number] 16:52:00 Test Item Value Reference Range Interpretation Comments POC Glucose (test 123 mg/dL 70-115 H If you con trailer rental clerk your code = POCGLUC) patient crit ically ill, the Madeline Accu- Chek InformII meters hould not be used for Glu cose determinations. Draw a venous Glucose and send to the Main Lab for Analysis. POC Glucose, [id number] 12:04:00 Test Item Value Reference Range Interpretation Comments POC Glucose (test 140 mg/dL 70-115 H If you con trailer rental clerk your code = POCGLUC) patient crit ically ill, the Madeline Accu- Chek InformII meters hould not be used for Glu cose determinations. Draw a venous Glucose and send to the Main Lab for Analysis. POC Glucose, [id number] 08:01:00 Test Item Value Reference Range Interpretation Comments POC Glucose (test 126 mg/dL 70-115 H If you con trailer rental clerk your code = POCGLUC) patient crit ically ill, the Madeline Accu- Chek InformII meters hould not be used for Glu cose determinations. Draw a venous Glucose and send to the Main Lab for Analysis. CK [id number] 06:03:00 Test Item Value Reference Range Interpretation Comments CK (test code = CK) na U/L 39-308 N CKMB (test code = CKMB) 2.8 ng/mL 0.0-4.9 N CKMB% (test code = CKMBP) 0.0 % 0.0-3.4 N Basic Metabolic [id number] 05:51:00 Test Item Value Reference Range Interpretation [...] the National Kidney Foundation,http ://nkd ep.nih.gov Magnesium, [id number] 05:51:00 Test Item Value Reference Range Interpretation Comments Magnesium (test code = MG) 1.9 mg/dL 1.7-2.5 N [id number] 05:51:00 Test Item Value Reference Range Interpretation Comments Phosphorus (test code = PO4) 3.8 mg/dL 2.70-4.50 N Iow-[id number] 05:51:00 Test Item Value Reference Range Interpretation Comments NT ProBnp (test code = PBNP) >25987 pg/mL 0-124 H Troponin [id number] 05:51:00 Test Item Value Reference Range Interpretation Comments Troponin T (test code = MADHAV) 0.126 ng/mL 0.000-0.090 H CBC with [id number] 05:34:00 Test Item Value Reference Range Interpretation [...] code = ALYMPH) 0.4 K/cumm 0.5-4.6 L Labette Abs (test code = AMONO) 0.6 K/cumm 0.0-1.2 N Eos Abs (test code = AEOS) 0.13 K/cumm 0.00-0.74 N Baso Abs (test code = ABASO) 0.0 K/cumm 0.00-0.21 N CK [id number] 18:39:00 Test Item Value Reference Range Interpretation Comments CK (test code = CK) HIDE U/L 39-308 N CKMB (test code = CKMB) 3.2 ng/mL 0.0-4.9 N CKMB% (test code = CKMBP) HIDE % 0.0-3.4 N Troponin [id number] 18:39:00 Test Item Value Reference Range Interpretation Comments Troponin T (test code = MADHAV) 0.126 ng/mL 0.000-0.090 H Hep B Surface [id number] 18:39:00 Test Item Value Reference Range Interpretation Comments Hep Bs Ag (test code = HBSAG) Nonreactive Non-Reactive A POC Glucose, [id number] 16:47:00 Test Item Value Reference Range Interpretation Comments POC Glucose (test 143 mg/dL 70-115 H If you con trailer rental clerk your code = POCGLUC) patient crit ically ill, the Madeline Accu- Chek InformII meters hould not be used for Glu cose determinations. Draw a venous Glucose and send to the Main Lab for Analysis. XR CHEST 1 [id number] 08:18:18EXAM: Portable AP chest x-rayLOCATION: R16 INDICATION: CoughCOMPARISON: 11/07/2017FINDINGS:The cardiacsilhouette is stable enlargement. There are increasinginterstitial opacities, most evident in the per ihilar regions and lowerlobes. There is blunting of the costophrenic angles bilaterally. Thereis no discernible pneumothorax.IMPRESSION:Increasing perihilar and bilateral lower lobe opacities compared to theprior exam dated 11/07/2017. Findings may represent pulmonary edema orpneumonia in the appropriate clinical setting.Comprehensive Metabolic [id number] 08:05:00 Test Item Value Reference Range Interpretation [...] by jatinder tubbs MDRD study and yakelin d be interpretedwith caution.eGFR Re sult Interpretation: eGFR > or = 60 is in t he Normal RangeeGF R < 60 may mean kidney diseaseeGFR < 1 5 may mean kidney failureRange s recommended by the National Kidney Foundation,http ://nkd ep.nih.gov CK [id number] 08:05:00 Test Item Value Reference Range Interpretation Comments CK (test code = CK) 149 U/L 39-308 N Troponin [id number] 08:02:00 Test Item Value Reference Range Interpretation Comments Troponin T (test code = MADHAV) 0.114 ng/mL 0.000-0.090 H Aan-[id number] 08:02:00 Test Item Value Reference Range Interpretation Comments NT ProBnp (test code = PBNP) >94264 pg/mL 0-124 H CBC with [id number] 07:53:00 Test Item Value Reference Range Interpretation [...] code = ALYMPH) 0.9 K/cumm 0.5-4.6 N Labette Abs (test code = AMONO) 0.4 K/cumm 0.0-1.2 N Eos Abs (test code = AEOS) 0.11 K/cumm 0.00-0.74 N Baso Abs (test code = ABASO) 0.0 K/cumm 0.00-0.21 N XR CHEST 1 [id number] 21:38:09EXAM: CHEST ONE VIEWINDICATION: CoughCOMPARISON: October 06, 2017TECHNIQUE: AP view of the chest.FINDINGS: The cardiomediastinal silhouette is unchanged. Mild congestive changesbilaterally. No pneumothorax or pleural effusion is identified. Theosseous structures are unremarkable.IMPRESSION: Diffuse congestive changes bilaterally.LOCATION: R16US DUPLX EXT VEINS [facility], [id number] 20:09:34AFTER HOURS SERVICE ON: 10/06/2017 8:09 PMRIGHT Lower Extremity Venous Duplex Doppler ExaminationLocation Code Z63Sqparvc: SwellingTechnique: Real-time castillo scale, Doppler spectral analysis [...] Lower Extremity Venous Duplex Doppler ExaminationLocation Code S50Hqnab ry: SwellingTechnique: Real-time castillo scale, Doppler spectral [...] of DVT in the imaged vessels.Comprehensive Metabolic [id number] 17:40:00 Test Item Value Reference Range Interpretation [...] National Kidney Foundation,http ://nkd ep.nih.gov CBC with [id number] 17:15:00 Test Item Value Reference Range Interpretation [...] code = ALYMPH) 1.3 K/cumm 0.5-4.6 N Labette Abs (test code = AMONO) 0.6 K/cumm 0.0-1.2 N Eos Abs (test code = AEOS) 0.12 K/cumm 0.00-0.74 N Baso Abs (test code = ABASO) 0.0 K/cumm 0.00-0.21 N XR CHEST 1 [id number] 16:56:42CHEST 1 VIEW: [id number]: coughCOMPARISON:Sep 24, 2017FINDINGS:The heart is enlarged. There is engorgement of the central pulmonaryvasculature. There are patchy bibasilar areas of infiltrate oratelectasis with bilateral effusions. No pneumothorax is present. IMPRESSION: 1. Patchy areas of atelectasis or infiltrate in the lung bases withsmall bilateral effusions and vascular congestion most likely secondaryto CHF.Culture, Blood [id number] 14:58:00Specimen: BloodCollected: 09/24/2017 13:05 Status: Final Last Updated: 09/29/2017 14:58 (1) ER Bed 1 Culture Result (Final) (Final) No Growth After 5 DaysCulture, Blood [id number] 14:58:00Specimen: BloodCollected: 09/24/2017 12:50 Status: Final Last Updated: 09/29/2017 14:58 (1) ER Bed 1 Culture Result (Final) (Final) No Growth After 5 DaysPOC Glucose, [id number] 10:54:00 Test Item Value Reference Range Interpretation Comments POC Glucose (test 168 mg/dL 70-115 H If you con trailer rental clerk your code = POCGLUC) patient crit ically ill, the [facility] Accu- Chek InformII meters hould not be used for Glu cose determinations. Draw a venous Glucose and send to the Main Lab for Analysis. POC Glucose, [id number] 07:16:00 Test Item Value Reference Range Interpretation Comments POC Glucose (test 143 mg/dL 70-115 H If you con trailer rental clerk your code = POCGLUC) patient crit ically ill, the Madeline Accu- Chek InformII meters hould not be used for Glu cose determinations. Draw a venous Glucose and send to the Main Lab for Analysis. CBC with [id number] 07:15:00 Test Item Value Reference Range Interpretation [...] code = ALYMPH) 1.3 K/cumm 0.5-4.6 N Labette Abs (test code = AMONO) 0.7 K/cumm 0.0-1.2 N Eos Abs (test code = AEOS) 0.07 K/cumm 0.00-0.74 N Baso Abs (test code = ABASO) 0.0 K/cumm 0.00-0.21 N Magnesium, [id number] 07:03:00 Test Item Value Reference Range Interpretation Comments Magnesium (test code = MG) 2.0 mg/dL 1.7-2.5 N Basic Metabolic [id number] 07:03:00 Test Item Value Reference Range Interpretation [...] National Kidney Foundation,http ://nkd ep.nih.gov POC Glucose, [id number] 21:40:00 Test Item Value Reference Range Interpretation Comments POC Glucose (test 129 mg/dL 70-115 H If you con trailer rental clerk your code = POCGLUC) patient crit ically ill, the Madeline Accu- Chek InformII meters hould not be used for Glu cose determinations. Draw a venous Glucose and send to the Main Lab for Analysis. 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 Draw a venous Glucose and send to the Main Lab for Analysis. POC Glucose, [id number] 07:57:00 Test Item Value Reference Range Interpretation Comments POC Glucose (test 164 mg/dL 70-115 H If you con trailer rental clerk your code = POCGLUC) patient crit ically ill, the Madeline Accu- Chek InformII meters hould not be used for Glu cose determinations. Draw a venous Glucose and send to the Main Lab for Analysis. POC Glucose, [id number] 19:47:00 Test Item Value Reference Range Interpretation Comments POC Glucose (test 140 mg/dL 70-115 H Notify RN or MDIf you code = POCGLUC) consider you r patient critically ill, the Madeline Accu-Chek InformII metershould not be used for Glucose determinations. Draw a venous Glucose and send to the Main Lab for Analysis. Troponin [id number] 19:36:00 Test Item Value Reference Range Interpretation Comments Troponin T (test code = MADHAV) 0.121 ng/mL 0.000-0.090 H CK [id number] 19:25:00 Test Item Value Reference Range Interpretation Comments CK (test code = CK) 160 U/L 39-308 N The valu e HIDE originally released by [facility] on 09/25/2017 19:1 2 waschanged to 1 60 by Verold on 09/25 19:24 CKMB (test code = 3.0 ng/mL 0.0-4.9 N CKMB) CKMB% (test code = 1.9 % 0.0-3.4 N The value HIDE originally CKMBP) released by [facility] on 09/25/2017 19:1 2 waschanged to 1 .9 by Verold on 09/25 19:24 POC Glucose, [id number] 16:42:00 Test Item Value Reference Range Interpretation Comments POC Glucose (test 123 mg/dL 70-115 H If you con trailer rental clerk your code = POCGLUC) patient crit ically ill, the Madeline Accu- Chek InformII meters hould not be used for Glu cose determinations. Draw a venous Glucose and send to the Main Lab for Analysis. POC Glucose, [id number] 12:09:00 Test Item Value Reference Range Interpretation Comments POC Glucose (test 141 mg/dL 70-115 H If you con trailer rental clerk your code = POCGLUC) patient crit ically ill, the Madeline Accu- Chek InformII meters hould not be used for Glu cose determinations. Draw a venous Glucose and send to the Main Lab for Analysis. Hep B Surface [id number] 07:59:00 Test Item Value Reference Range Interpretation Comments Hep Bs Ag (test code = HBSAG) Nonreactive Non-Reactive A CK [id number] 07:43:00 Test Item Value Reference Range Interpretation Comments CK (test code = CK) n/a U/L 39-308 N CKMB (test code = CKMB) 2.4 ng/mL 0.0-4.9 N CKMB% (test code = CKMBP) 0.0 % 0.0-3.4 N Troponin [id number] 07:38:00 Test Item Value Reference Range Interpretation Comments Troponin T (test code = MADHAV) 0.134 ng/mL 0.000-0.090 H Thyroid Stimulating Hormone (TSH)2017-09-25 07:38:00 Test Item Value Reference Range Interpretation Comments TSH (test code = TSH) 1.10 mIU/mL 0.270-4.200 N [id number] 07:38:00 Test Item Value Reference Range Interpretation Comments Phosphorus (test code = PO4) 3.4 mg/dL 2.70-4.50 N Comprehensive Metabolic [id number] 07:38:00 Test Item Value Reference Range Interpretation [...] the National Kidney Foundation,http ://nkd ep.nih.gov Magnesium, [id number] 07:38:00 Test Item Value Reference Range Interpretation Comments Magnesium (test code = MG) 2.0 mg/dL 1.7-2.5 N CK [id number] 07:31:00 Test Item Value Reference Range Interpretation Comments CK (test code = CK) 159 U/L 39-308 N Lipid [id number] 07:31:00 Test Item Value Reference Range Interpretation Comments Cholesterol (test 118 mg/dL 0-200 N code = CHOL) Triglycerides (test 170 mg/dL 9-200 N code = TRIG) HDL (test code = 49 mg/dL 40-60 N HDL) Chol/HDL (test code 2.4 Ratio 0.0-5.0 N = CHOLPHDL) LDL, Calculated 35 0-130 N (NOTE)RISK O F HEART (test code = LDLC) DISEASEPu blished by [place] Heart AssociationAnal yte Optim al Boderline Increased RiskC HOL <200 200-239 >240TRI G <150 150-199 >200HDL Male: >60 <40HDL Female: >60 <50 LDL < 100 130-15 9 >160 LDL NEAR OPTIMAL IS 100- 129 VLDL (test code = 34 mg/dL 5-40 N VLDL) LDL/HDL (test code = 1 LDLPHDL) Glycosylated [id number] 07:24:00 Test Item Value Reference Range Interpretation Comments HBA1c (test code = HBA1C) 5.0 % 4.8-5.9 N CBC with [id number] 07:20:00 Test Item Value Reference Range Interpretation [...] code = ALYMPH) 0.8 K/cumm 0.5-4.6 N Labette Abs (test code = AMONO) 0.5 K/cumm 0.0-1.2 N Eos Abs (test code = AEOS) 0.10 K/cumm 0.00-0.74 N Baso Abs (test code = ABASO) 0.0 K/cumm 0.00-0.21 N POC Glucose, [id number] 07:03:00 Test Item Value Reference Range Interpretation Comments POC Glucose (test 147 mg/dL 70-115 H If you con trailer rental clerk your code = POCGLUC) patient crit ically ill, the Madeline Accu- Chek InformII meters hould not be used for Glu cose determinations. Draw a venous Glucose and send to the Main Lab for Analysis. POC Glucose, [id number] 22:05:00 Test Item Value Reference Range Interpretation Comments POC Glucose (test 134 mg/dL 70-115 H If you con trailer rental clerk your code = POCGLUC) patient crit ically ill, the Madeline Accu- Chek InformII meters hould not be used for Glu cose determinations. Draw a venous Glucose and send to the Main Lab for Analysis. Blood Gas+Lytes+Glu+Ca+Hgb+Hct+[id number] 18:31:00 Test Item Value Reference Range Interpretation [...] (test code = alokrblvverqnscrit COMMENT) liz Pierre@ [id number] Puncture Site (test code = Radial. R PUNSITE) Drawing Tech ID (test code gianfranco fi = DRAWTECH) iPAP (test code = IPAP) 0 cmH2O Respiratory Rate (test code 0 = RESP RATE) Lactic Acid, Blood Gas 0.4 mmol/L (test code = BGLA) CT CHEST W/O [id number] 16:48:03CT CHEST W/O CONTRASTLOCATION CODE: R16 HISTORY: [...] bilateral axillary, prevascular, andparatracheal lymph nodes.Influenza B [id number] 14:36:00Specimen: NasalCollected: 09/24/2017 14:04 Status: Final Last [...] the National Kidney Foundation,http ://nkd ep.nih.gov Troponin [id number] 13:54:00 Test Item Value Reference Range Interpretation Comments Troponin T (test code = MADHAV) 0.124 ng/mL 0.000-0.090 H Rnr-[id number] 13:54:00 Test Item Value Reference Range Interpretation Comments NT ProBnp (test code = PBNP) >79331 pg/mL 0-124 H CK [id number] 13:54:00 Test Item Value Reference Range Interpretation Comments CK (test code = CK) 222 U/L 39-308 N CKMB (test code = CKMB) 3.1 ng/mL 0.0-4.9 N CKMB% (test code = CKMBP) 1.4 % 0.0-3.4 N CK [id number] 13:54:00 Test Item Value Reference Range Interpretation Comments CK (test code = CK) 222 U/L 39-308 N Partial Thromboplastin [id number] 13:43:00 Test Item Value Reference Range Interpretation Comments aPTT (test code = PTT) 35.70 seconds 24.39-37.25 N Prothrombin [id number] 13:43:00 Test Item Value Reference Range Interpretation Comments PT (test code = PT) 11.30 seconds 9.78-13.35 N INR (test code = INR) 0.99 Ratio 0.6-1.2 N Lactic Acid [id number] 13:41:00 Test Item Value Reference Range Interpretation Comments Lactic Acid, Bld (test code = LAC) 1.3 mmol/L 0.5-1.9 N CBC with [id number] 13:32:00 Test Item Value Reference Range Interpretation [...] code = ALYMPH) 1.2 K/cumm 0.5-4.6 N Labette Abs (test code = AMONO) 0.6 K/cumm 0.0-1.2 N Eos Abs (test code = AEOS) 0.23 K/cumm 0.00-0.74 N Baso Abs (test code = ABASO) 0.0 K/cumm 0.00-0.21 N XR CHEST 1 [id number] 12:50:14XR CHEST 1 VIEWLOCATION: [id number]: None.INDICATION: CoughDISCUSSION:A single portable chest radiograph was [...]
[2020-07-15 02:53] LABS: ALT/SGPT 41 U/L (12-78); AST/SGOT 60 U/L (15-37); Albumin 2.9 g/dL (3.4-5.0); Alkaline Phosphatase 167 U/L (45-117); BUN Blood Urea Nitrogen 39 mg/dL (7-18); Bicarbonate 33 mmol/L (21-32); Bilirubin Direct 0.3 mg/dL (0-0.2); Bilirubin Total 0.6 mg/dL (0.2-1.0); Glucose Level 121 mg/dL (74-106); Magnesium 1.7 mg/dL (1.8-2.4); NT PRO-BNP 14892 pg/mL (<125); Potassium 3.1 mmol/L (3.5-5.1); Protein, Total 9.1 g/dL (6.4-8.2); Sodium Level 139 mmol/L (136-145); Troponin (Emerg Dept Use Only) < 0.02 ng/mL (0.0-0.045)
--- NOTE | 2020-07-15 03:43 | EDPHYS ---
Physician Documentation [facility] Name: Salvatore Goldman Age: 65 yrs Sex: Male : 1955 Arrival Date: 07/15/2020 Time: 02:04 Bed 30 Private MD: ED Physician Boston Johnson HPI: 07/15 02:16 This 65 yrs old Black Male presents to ER via EMS with complaints of chest pain ans beny sob, fast hr. 02:16 The patient has shortness of breath at rest, with light activity. Onset: The beny symptoms/episode began/occurred just prior to arrival. Duration: The symptoms are continuous, but are markedly better than the original presentation. The patient's shortness of breath has no apparent modifying factors. The patient or guardian reports chest pain that is located primarily in the substernal area, anterior chest wall. Onset: just prior to arrival. The pain does not radiate. Associated signs and symptoms: The patient has no apparent associated signs or symptoms. Severity of symptoms: At their worst the symptoms were moderate in the emergency department the symptoms are unchanged. Associated signs and symptoms: The patient has no apparent associated signs or symptoms. Historical: - Allergies: 02:09 No Known Allergies; rv - Home Meds: 02:16 atropine 1 % Opht drop 1 drop once daily [Active]; carvedilol 12.5 mg Oral tab 1 tab 2 bb times per day [Active]; Isentress 400 mg Oral tab 1 tab 2 times per day [Active]; Kaletra 200-50 mg Oral tab 2 tabs 2 times per day [Active]; lamivudine 10 mg/mL Oral soln 2.5 mL once daily [Active]; metformin 500 mg Oral tab 1 tab daily [Active]; pantoprazole 40 mg Oral TbEC 1 tab once daily [Active]; prednisolone acetate 1 % Opht drps 1 drop 4 times per day [Active]; Daija-Kodak 0.8 mg Oral tab daily [Active]; tramadol 50 mg Oral tab 1 tab Q8HRS PRN [Active]; Vitamin D Oral 94793 unit WEEKLY [Active]; warfarin 10 mg Oral tab 1.5 tabs on M,W, F and 1 tab on T,Thurs, Sat, Sun [Active]; - PMHx: 02:09 Cirrhosis; Diabetes - NIDDM; Dialysis; heart valve; Hepatitis; HIV; Hyperlipidemia; rv Karposi Sarcoma (left leg); kidney failure; L arm HD access; - PSHx: 02:09 VALVE REPLACEMENT, HEART; rv - Immunization history:: Adult Immunizations up to date. - Social history:: Smoking status: Patient denies any tobacco usage or history of. - Family history:: not pertinent. ROS: 02:16 Constitutional: Negative for fever, chills, and weight loss, Eyes: Negative for injury, beny pain, redness, and discharge, ENT: Negative for injury, pain, and discharge, Neck: Negative for injury, pain, and swelling, Respiratory: Negative for shortness of breath, cough, wheezing, and pleuritic chest pain, Abdomen/GI: Negative for abdominal pain, nausea, vomiting, diarrhea, and constipation, Back: Negative for injury and pain, : Negative for injury, bleeding, discharge, and swelling, MS/Extremity: Negative for injury and deformity, Skin: Negative for injury, rash, and discoloration, Neuro: Negative for headache, weakness, numbness, tingling, and seizure, Psych: Negative for depression, anxiety, suicide ideation, homicidal ideation, and hallucinations, Allergy/Immunology: Negative for hives, rash, and allergies, Endocrine: Negative for neck swelling, polydipsia, polyuria, polyphagia, and marked weight changes, Hematologic/Lymphatic: Negative for swollen nodes, abnormal bleeding, and unusual bruising. 02:16 Cardiovascular: Positive for chest pain, palpitations. Exam: 02:16 Constitutional: This is a well developed, well nourished patient who is awake, alert, beny and in no acute distress. Head/Face: Normocephalic, atraumatic. Eyes: Pupils equal round and reactive to light, extra-ocular motions intact. Lids and lashes normal. Conjunctiva and sclera are non-icteric and not injected. Cornea within normal limits. Periorbital areas with no swelling, redness, or edema. ENT: Nares patent. No nasal discharge, no septal abnormalities noted. Tympanic membranes are normal and external auditory canals are clear. Oropharynx with no redness, swelling, or masses, exudates, or evidence of obstruction, uvula midline. Mucous membranes moist. Neck: Trachea midline, no thyromegaly or masses palpated, and no cervical lymphadenopathy. Supple, full range of motion without nuchal rigidity, or vertebral point tenderness. No Meningismus. Chest/axilla: Normal chest wall appearance and motion. Nontender with no deformity. No lesions are appreciated. Cardiovascular: Regular rate and rhythm with a normal S1 and S2. No gallops, murmurs, or rubs. Normal PMI, no JVD. No pulse deficits. Respiratory: Lungs have equal breath sounds bilaterally, clear to auscultation and percussion. No rales, rhonchi or wheezes noted. No increased work of breathing, no retractions or nasal flaring. Abdomen/GI: Soft, non-tender, with normal bowel sounds. No distension or tympany. No guarding or rebound. No evidence of tenderness throughout. Back: No spinal tenderness. No costovertebral tenderness. Full range of motion. Male : Normal genitalia with no discharge or lesions. Skin: Warm, dry with normal turgor. Normal color with no rashes, no lesions, and no evidence of cellulitis. MS/ Extremity: Pulses equal, no cyanosis. Neurovascular intact. Full, normal range of motion. Neuro: Awake and alert, GCS 15, oriented to person, place, time, and situation. Cranial nerves II-XII grossly intact. Motor strength 5/5 in all extremities. Sensory grossly intact. Cerebellar exam normal. Normal gait. Psych: Awake, alert, with orientation to person, place and time. Behavior, mood, and affect are within normal limits. 03:42 ECG was reviewed by the Attending Physician. [facility] Vital Signs: 02:07 BP 108 / 68; Pulse 80; Resp 16; Temp 98; Pulse Ox 99% ; Weight 62.14 kg; Height 5 ft. 7 rv in. (170.18 cm); Pain 0/10; 03:54 BP 117 / 65; Pulse 76; Resp 16; Pulse Ox 100% on R/A; rv 02:07 Body Mass Index 21.46 (62.14 kg, 170.18 cm) rv MDM: 02:06 Patient medically screened. beny 02:21 Differential diagnosis: Bronchitis abnormal EKG, acute pericarditis, anxiety, coronary beny artery disease chest wall pain, congestive heart failure costochondritis, hiatal hernia, pancreatitis, peptic ulcer disease, pleurisy, pulmonary embolus, stable angina, unstable angina, pulmonary edema, Unstable Angina. Antibiotic administration: Not indicated. HEART Score: History: Slightly Suspicious (0), ECG: Non specific repolarization disturbance / LBTB / PM (1), Age: > 45 and < 65 years (1), Risk Factors: > or = 3 Risk factors for atherosclerotic disease (2), [Hypercholesterolemia] [Hypertension] [DM] [+ Family HX] Troponin: < or = 1 x Normal Limit (0). The patient was given aspirin in the Emergency Department. The patient's Wells Deep Vein Thrombosis Score was calculated as follows: Total Score: 0. This patient was found to be at low risk for a deep vein thrombosis by using the Well's assessment criteria Total Score: 0-2 Pts- Low Risk. The patient's pulmonary embolism risk score was calculated as follows: Total Score: 0-2 points. This patient was found to be at low risk for a pulmonary embolism by using the Well's assessment criteria Total Score: 0-2 points. This patient was found to be at low risk for a pulmonary embolism by using the Well's assessment criteria. KEITH Risk Score: TOTAL SCORE = 0. Immunization status: Influenza vaccine: Data reviewed: vital signs, nurses notes, lab test result(s), EKG, radiologic studies, CT scan, plain films. Data interpreted: school bus monitor: rate is 80 beats/min, rhythm is regular, Pulse oximetry: on room air is 99 %. Test interpretation: by ED physician or midlevel provider: ECG, plain radiologic studies. 07/15 02:12 Order name: Basic Metabolic Panel; Complete Time: 03:24 [facility] 07/15 02:12 Order name: CBC with Diff; Complete Time: 02:44 [facility] 07/15 02:12 Order name: LFT's; Complete Time: 03:25 [facility] 07/15 02:12 Order name: Magnesium; Complete Time: 03:25 [facility] 07/15 02:12 Order name: NT PRO-BNP; Complete Time: 03:25 [facility] 07/15 02:12 Order name: PT-INR; Complete Time: 02:44 [facility] 07/15 02:12 Order name: Troponin (emerg Dept Use Only); Complete Time: 03:25 [facility] 07/15 02:12 Order name: TSH; Complete Time: 03:25 [facility] 07/15 02:15 Order name: UDS [facility] 07/15 02:16 Order name: Urine Drug Screen [facility] 07/15 03:06 Order name: T4 Free; Complete Time: 03:25 [facility] 07/15 04:04 Order name: COVID-19 la1 07/15 05:47 Order name: Troponin I [facility] 07/15 06:48 Order name: Glucose, Ancillary Testing [facility] 07/15 02:12 Order name: XRAY Chest (1 view) [facility] 07/15 02:12 Order name: EKG; Complete Time: 02:13 [facility] 07/15 02:12 Order name: Cardiac monitoring; Complete Time: 02:34 [facility] 07/15 02:12 Order name: EKG - Nurse/Tech; Complete Time: 02:34 [facility] 07/15 02:12 Order name: IV Saline Lock; Complete Time: 02:34 [facility] 07/15 02:12 Order name: Labs collected and sent; Complete Time: 02:34 [facility] 07/15 02:12 Order name: O2 Per Protocol; Complete Time: 02:34 [facility] 07/15 02:12 Order name: O2 Sat Monitoring; Complete Time: 02:34 [facility] 07/15 07:34 Order name: Glucose, Ancillary Testing [facility] 07/15 12:34 Order name: Troponin I EDWY EC:42 Rate is 79 beats/min. Rhythm is regular. QRS [place] is Normal. NV interval is normal. QRS beny interval is normal. QT interval is normal. No Q waves. T waves are Normal. No ST changes noted. Clinical impression: NSR w/ Non-specific ST/T Changes, LVH, and No evidence of ischemia. Interpreted by me. Reviewed by me. Administered Medications: Discontinued: NS 0.9% 1000 ml IV at 75 ml/hr continuous 02:20 Drug: NS 0.9% 1000 ml Route: IV; Rate: 75 ml/hr; Site: right hand; rv 03:53 Follow up: IV Status: Order to discontinue infusion rv 02:20 Drug: Lopressor 25 mg Route: PO; rv 03:53 Follow up: Response: No adverse reaction rv 03:53 Drug: Coumadin 10 mg Route: PO; rv 03:56 Follow up: Response: Medication administered at discharge. rv 03:54 Drug: Potassium Chloride 10 mEq Route: PO; rv 03:56 Follow up: Response: Medication administered at discharge. rv 03:54 Drug: Magnesium Sulfate 1 grams Route: IVPB; Infused Over: 1 hrs; Site: right hand; rv 03:56 Follow up: IV Status: Infusion continued upon admission rv Disposition: 07/15/20 03:42 Hospitalization ordered by Scout Carr for Observation. Preliminary diagnosis are Atrial fibrillation and flutter, Chest pain on breathing, Dyspnea, End stage renal disease - on HD, Hypokalemia, Hypomagnesemia, Cardiomegaly, Diastolic (congestive) heart failure, Anemia, unspecified, Pleural effusion in conditions classified elsewhere. - Bed requested for [facility] ER HOLD. - Status is Observation. iw - Condition is Fair. - Problem is new. - Symptoms have improved. Signatures: Dispatcher [employer] EDMS Boston Johnson MD MD cha Ballard, Brenda RN LAURYN bb Gela Samson RN RN iw Brad Israel, FO[employer] SERVICE HOTEL RUNNER-C [employer] SERVICE HOTEL RUNNER-[facility] Aliza Durán RN RN cg Vicente, Ronaldo, RN RN rv Corrections: (The following items were deleted from the chart) 03:44 03:42 Hospitalization Ordered by Scout Carr DO for Observation. Preliminary beny diagnosis is Atrial fibrillation and flutter; Chest pain on breathing; Dyspnea; End stage renal disease - on HD; Hypokalemia; Hypomagnesemia. Bed requested for Telemetry/MedSurg (observation). Status is Observation. Condition is Fair. Problem is new. Symptoms have improved. beny 04:07 03:44 07/15/2020 03:42 Hospitalization Ordered by Scout Carr DO for Observation. cg Preliminary diagnosis is Atrial fibrillation and flutter; Chest pain on breathing; Dyspnea; End stage renal disease - on HD; Hypokalemia; Hypomagnesemia; Cardiomegaly; Diastolic (congestive) heart failure; Anemia, unspecified; Pleural effusion in conditions classified elsewhere. Bed requested for Telemetry/MedSurg (observation). Status is Observation. Condition is Fair. Problem is new. Symptoms have improved. beny 12:37 04:07 07/15/2020 03:42 Hospitalization Ordered by Scout Carr DO for Observation. iw Preliminary diagnosis is Atrial fibrillation and flutter; Chest pain on breathing; Dyspnea; End stage renal disease - on HD; Hypokalemia; Hypomagnesemia; Cardiomegaly; Diastolic (congestive) heart failure; Anemia, unspecified; Pleural effusion in conditions classified elsewhere. Bed requested for [facility] ER HOLD. Status is Observation. Condition is Fair. Problem is new. Symptoms have improved. cg
--- NOTE | 2020-07-15 03:43 | ER ---
Nurse's Notes [facility] Name: Salvatore Goldman Age: 65 yrs Sex: Male : 1955 Arrival Date: 07/15/2020 Time: 02:04 Bed 30 Private MD: Diagnosis: Atrial fibrillation and flutter;Chest pain on breathing;Dyspnea;End stage renal disease-on HD;Hypokalemia;Hypomagnesemia;Cardiomegaly;Diastolic (congestive) heart failure;Anemia, unspecified;Pleural effusion in conditions classified elsewhere Presentation: 07/15 02:07 Chief complaint: EMS states: SVT AT THE SCENE. COMPLAINING OF CHEST PAIN. HE CONVERTED rv BEFORE WE LEFT THE HOUSE. VITAL SIGNS STABLE. Coronavirus screen: Client denies travel out of the [place] in the last 14 days. Ebola Screen: No symptoms or risks identified at this time. Initial Sepsis Screen: Does the patient meet any 2 criteria? No. Patient's initial sepsis screen is negative. Does the patient have a suspected source of infection? No. Patient's initial sepsis screen is negative. Risk Assessment: Do you want to hurt yourself or someone else? Patient reports no desire to harm self or others. Onset of symptoms was July 15, 2020 at 01:00. 02:07 Method Of Arrival: EMS: [facility] rv 02:07 Acuity: NARDA 3 rv Triage Assessment: 02:09 General: Appears comfortable, Behavior is calm, cooperative. Pain: Denies pain. EENT: rv No signs and/or symptoms were reported regarding the EENT system. Neuro: Level of Consciousness is awake, alert, obeys commands, Oriented to person, place, time, situation. Cardiovascular: Patient's skin is warm and dry. Respiratory: Airway is patent Respiratory effort is even, unlabored, Breath sounds are clear bilaterally. Derm: Skin is intact. 02:09 Cardiovascular: Denies chest pain, Rhythm is sinus rhythm. rv Historical: - Allergies: 02:09 No Known Allergies; rv - Home Meds: 02:16 atropine 1 % Opht drop 1 drop once daily [Active]; carvedilol 12.5 mg Oral tab 1 tab 2 bb times per day [Active]; Isentress 400 mg Oral tab 1 tab 2 times per day [Active]; Kaletra 200-50 mg Oral tab 2 tabs 2 times per day [Active]; lamivudine 10 mg/mL Oral soln 2.5 mL once daily [Active]; metformin 500 mg Oral tab 1 tab daily [Active]; pantoprazole 40 mg Oral TbEC 1 tab once daily [Active]; prednisolone acetate 1 % Opht drps 1 drop 4 times per day [Active]; Daija-Kodak 0.8 mg Oral tab daily [Active]; tramadol 50 mg Oral tab 1 tab Q8HRS PRN [Active]; Vitamin D Oral 34264 unit WEEKLY [Active]; warfarin 10 mg Oral tab 1.5 tabs on M,W, F and 1 tab on T,Thurs, Sat, Sun [Active]; - PMHx: 02:09 Cirrhosis; Diabetes - NIDDM; Dialysis; heart valve; Hepatitis; HIV; Hyperlipidemia; rv Karposi Sarcoma (left leg); kidney failure; L arm HD access; - PSHx: 02:09 VALVE REPLACEMENT, HEART; rv - Immunization history:: Adult Immunizations up to date. - Social history:: Smoking status: Patient denies any tobacco usage or history of. - Family history:: not pertinent. Screenin:10 Abuse screen: Denies threats or abuse. Denies injuries from another. Nutritional rv screening: No deficits noted. Tuberculosis screening: No symptoms or risk factors identified. Fall Risk None identified. Assessment: 03:54 Reassessment: PATIENT UPDATED ON THE TEST RESULTS AND PLAN OF CARE. MOUNA HERNANDEZ, TALKED rv TO THE PATIENT AT BEDSIDE. AWAITING ADMISSION ORDERS. 07:00 Reassessment: RECD REPORT FROM KRISTINA COMBS. PT ON ER HOLD FOR AFIB/AFLUTTER. SEE bp [facility]. Vital Signs: 02:07 BP 108 / 68; Pulse 80; Resp 16; Temp 98; Pulse Ox 99% ; Weight 62.14 kg; Height 5 ft. 7 rv in. (170.18 cm); Pain 0/10; 03:54 BP 117 / 65; Pulse 76; Resp 16; Pulse Ox 100% on R/A; rv 02:07 Body Mass Index 21.46 (62.14 kg, 170.18 cm) rv ED Course: 02:04 Patient arrived in ED. bp1 02:06 Boston Johnson MD is Attending Physician. beny 02:07 Vignesh, Shilo, RN is Primary Nurse. rv 02:08 Triage completed. rv 02:10 Arm band placed on right wrist. Patient placed in the treatment room, on a stretcher, rv Patient notified of wait time. 02:10 No provider procedures requiring assistance completed. Maintain EMS IV. Dressing rv intact. Good blood return noted. Site clean \T\ dry. Gauge \T\ site: G22 RIGHT HAND. 02:11 Patient has correct armband on for positive identification. property assessment monitor on. Pulse rv ox on. NIBP on. 02:38 XRAY Chest (1 view) In Process Unspecified. EDMS 03:40 Scout Carr DO is Hospitalizing Provider. beny 03:56 IV is patent, with fluids infusing freely, Patient admitted, IV remains in place. rv 07:05 Primary Nurse role handed off by Shilo Medellin, LAURYN bp 07:05 Josiah Schwab, RN is Primary Nurse. bp Administered Medications: Discontinued: NS 0.9% 1000 ml IV at 75 ml/hr continuous 02:20 Drug: NS 0.9% 1000 ml Route: IV; Rate: 75 ml/hr; Site: right hand; rv 03:53 Follow up: IV Status: Order to discontinue infusion rv 02:20 Drug: Lopressor 25 mg Route: PO; rv 03:53 Follow up: Response: No adverse reaction rv 03:53 Drug: Coumadin 10 mg Route: PO; rv 03:56 Follow up: Response: Medication administered at discharge. rv 03:54 Drug: Potassium Chloride 10 mEq Route: PO; rv 03:56 Follow up: Response: Medication administered at discharge. rv 03:54 Drug: Magnesium Sulfate 1 grams Route: IVPB; Infused Over: 1 hrs; Site: right hand; rv 03:56 Follow up: IV Status: Infusion continued upon admission rv Outcome: 03:42 Decision to Hospitalize by Provider. beny 03:55 Admitted to ER Hold. Please see [facility] for further documentation. rv 03:55 Condition: good 03:55 Discharge instructions given to patient, Instructed on the need for admit, Demonstrated understanding of instructions. 12:37 Patient left the ED. iw Signatures: Dispatcher [employer] EDMS Boston Johnson MD MD cha Ballard, Brenda, RN RN bb Williams, Irene, RN RN Josiah Schwab RN RN bp Shilo Medellin RN RN rv Camille Linda bp1
[2020-07-15] MEDS ORDERED: WARFARIN SODIUM 5 MG TAB ONE (04:00)
[2020-07-15] MEDS ORDERED: MAGNESIUM SULFATE 1 gm IVPB 1 GM/100 ML BAG IV ONE (04:00)
[2020-07-15] MEDS ORDERED: POTASSIUM CL SA 10 MEQ TAB PO ONE (04:00)
--- NOTE | 2020-07-15 04:09 | P.HP ---
Certification for Inpatient Patient admitted to: Observation With expected LOS: <2 Midnights Patient will require the following post-hospital care: None Practitioner: I am a practitioner with admitting privileges, knowledge of patient current condition, hospital course, and medical plan of care. Services: Services provided to patient in accordance with Admission requirements found in Title 42 Section 412.3 of the Code of Federal Regulations <Brad Israel - Last Filed: 07/15/20 04:03> Patient admitted to: Observation <Scout Carr - Last Filed: 07/15/20 08:47> Patient History Date of Service: 07/15/20 Primary Care Provider: Dr. Chand? nephrology Dr. Washburn Reason for admission: Chest pain History of Present Illness: 65-year-old male with history of HIV, hepatitis-C, cirrhosis of the liver, diabetes mellitus type 2, end-stage renal disease, hypertension, hyperlipidemia presents emergency department for chest pain and palpitations. Patient reports that he has woken from sleep feeling as if his heart was racing, EMS was called. Patient appeared to be in atrial fibrillation with rapid ventricular response with a rate of around 170. At the time he is experiencing palpitations he was also having chest pain and shortness of breath. Patient converted to sinus rhythm shortly before arriving to the emergency department. Patient was worked up in the emergency department, EKG without acute findings, initial cardiac enzymes negative. Patient was mildly hypokalemic and hypomagnesemic. Patient also has a mechanical heart valve and is mildly subtherapeutic with his Coumadin. ED provider wishes to admit patient for further evaluation and management under observation. When I saw the patient in the emergency department is awake, alert, oriented x3. Patient states chest pain has resolved and is resting comfortably in stretcher. Will admit patient under observation. - Past Medical/Surgical History Diabetic: Yes -: HIV-AIDS -: Hepatitis C -: Diabetes mellitus type 2 -: Hypertension -: [place] Sarcoma of the LLE -: Mechanical heart valve on Coumadin -: Cirrhosis -: ESRD on HD Saturday -: AV fistula to the LUE -: Mitral Valve Replacement, mechanical Psychosocial/ Personal History: He has been with his current partner for years, 7-children, Disabled. - Family History Father -: Diabetes, Other (see notes) Notes: bilateral amputee Mother -: Heart disease, Hypertension, Stroke - Social History Smoking Status: Never smoker Alcohol use: No CD- Drugs: No Caffeine use: Yes Place of Residence: Home <Brad Israel - Last Filed: 07/15/20 04:03> Date of Service: 07/15/20 Home medications list reviewed: Yes - Past Medical/Surgical History -: Chronic anti coagulation therapy <Scout Carr - Last Filed: 07/15/20 08:47> Allergies codeine Allergy (Verified 05/17/18 03:42) Itching Home Medications: Lamivudine [Epivir] 2.5 ml PO BID 02/18/18 Lopinavir/Ritonavir [Kaletra 200-50 MG Tablet*] 2 tab PO BID 05/17/18 Raltegravir Potassium [Isentress*] 400 mg PO BID 05/17/18 Warfarin Sodium [Coumadin*] 10 mg PO DAILY 5 PM 05/17/18 Aspirin Chewable [Aspirin Chewable*] 81 mg PO DAILY 05/18/18 Folic Acid/Vit B Complex and C [Daija-Kodak Tablet] 1 tab PO DAILY 05/18/18 Calcium Acetate 1 cap PO BID 03/09/19 Amoxicillin/Potassium Clav [Augmentin 500-125 Tablet] 1 each PO DAILY #7 tablet 07/30/19 carvediloL [Coreg] 25 mg PO BID #60 tab 07/15/20 Review of Systems 10-point ROS is otherwise unremarkable Cardiovascular: Chest Pain, Palpitations <Brad Israel - Last Filed: 07/15/20 04:03> Physical Examination - Physical Exam General: Alert, In no apparent distress HEENT: Atraumatic, PERRLA, Mucous membr. moist/pink Neck: Supple, 2+ carotid pulse no bruit, No LAD Respiratory: Clear to auscultation bilaterally, Normal air movement Cardiovascular: Regular rate/rhythm, Normal S1 S2 Gastrointestinal: Normal bowel sounds, No tenderness Musculoskeletal: No tenderness Integumentary: No rashes Neurological: Normal speech, Normal strength at 5/5 x4 extr, Normal tone, Normal affect - Studies Laboratory Data (last 24 hrs) 07/15/20 02:15: PT 19.5 H, INR 1.67 07/15/20 02:15: WBC 6.9, Hgb 9.3 L, Hct 28.0 L, Plt Count 203 07/15/20 02:15: Sodium 139, Potassium 3.1 L, BUN 39 H, Creatinine 3.94 H, Glucose 121 H, Magnesium 1.7 L, Total Bilirubin 0.6, AST 60 H, ALT 41, Alkaline Phosphatase 167 H <Brad Israel - Last Filed: 07/15/20 04:03> - Studies Laboratory Data (last 24 hrs) 07/15/20 02:15: PT 19.5 H, INR 1.67 07/15/20 02:15: WBC 6.9, Hgb 9.3 L, Hct 28.0 L, Plt Count 203 07/15/20 02:15: Sodium 139, Potassium 3.1 L, BUN 39 H, Creatinine 3.94 H, Glucose 121 H, Magnesium 1.7 L, Total Bilirubin 0.6, AST 60 H, ALT 41, Alkaline Phosphatase 167 H <Scout Carr - Last Filed: 07/15/20 08:47> Assessment and Plan - Plan Assessment New onset paroxysmal atrial fibrillation with rapid ventricular response-now in sinus rhythm Subtherapeutic Coumadin level for mechanical heart valve End-stage renal disease on hemodialysis Saturday Hypomagnesemia Hypokalemia HIV 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 b.i.d., monitor on telemetry. Cardiology consult in place. DVT prophylaxis with patient's Coumadin. Subtherapeutic Coumadin level for mechanical heart valve: Patient given dose of Coumadin in the emergency department, may require further adjustment with PCP. End-stage renal disease on hemodialysis Saturday: Nephrology consulted. Hypomagnesemia: Magnesium protocol in place. Given magnesium in the emergency department. Hypokalemia: Patient was given small amount of potassium in the emergency department, will replace under guidance of nephrology as patient is on dialysis HIV: Obtain and continue home medications Cirrhosis of the liver secondary to chronic hepatitis-C: Obtain and continue home medications, appears stable at this time Hypertension: Continue carvedilol Hyperlipidemia: Obtain and continue home meds Discharge Plan: Home Plan to discharge in: 24 Hours - Advance Directives Does patient have a Living Will: No Does patient have a Durable POA for Healthcare: No - Code Status/Comfort Care Code Status Assessed: Yes (Full code) Critical Care: No Time Spent Managing Pts Care (In Minutes): 55 <Brad Israel - Last Filed: 07/15/20 04:03> - Plan Case discussed in detail with nurse practitioner. Agree with evaluation, assessment and plan of care. Case discussed with cardiology. Cardiology recommends to increase carvedilol to 25 mg 1 pill twice daily. Patient now in normal sinus rhythm. Patient will continue with his Coumadin regimen. Recommend follow up with cardiology. Will also discuss with nephrology. Plan to discharge today. Please see discharge summary for details. <Scout Carr - Last Filed: 07/15/20 08:47>
[2020-07-15 04:50] VITALS: O2SAT 100; BMI 21.4
[2020-07-15] MEDS ORDERED: ONDANSETRON 4 MG/2 ML VIAL IV PRN (04:52)
[2020-07-15] MEDS ORDERED: ACETAMINOPHEN 500 MG TAB PO PRN (04:52)
[2020-07-15] MEDS ORDERED: carvediloL 6.25 MG TAB PO SCH ×2 (06:00→18:00)
[2020-07-15] MEDS: INSULIN -REGULAR HUMAN 50 UNIT/0.5 ML ML SQ SCH ×2 (07:26→11:30)
[2020-07-15] MEDS ORDERED: carvediloL 6.25 MG TAB ONE (07:31)
--- NOTE | 2020-07-15 08:38 | P.DS ---
Admission Date: 07/15/20 Discharge Date: 07/15/20 Primary Care Provider: HIV clinic; Nephrology Dr. Washburn Disposition: ROUTINE DISCHARGE Discharge Condition: GOOD Reason for Admission: Chest pain Consultations: Cardiology-Dr. Bedolla Nephrology-Dr. Washburn Procedures: Medical problem list: Palpitation, chest pain secondary to paroxysmally atrial fibrillation now in normal sinus rhythm on chronic anti coagulation therapy History of mechanical heart valve on chronic anti coagulation therapy End-stage renal disease on hemodialysis Hypertension Hyperlipidemia HIV History of cirrhosis with hepatitis-C Brief History of Present Illness: 65-year-old male with history of HIV, hepatitis-C, cirrhosis of the liver, diabetes mellitus type 2, end-stage renal disease, hypertension, hyperlipidemia presents emergency department for chest pain and palpitations. Patient reports that he has woken from sleep feeling as if his heart was racing, EMS was called. Patient appeared to be in atrial fibrillation with rapid ventricular response with a rate of around 170. At the time he is experiencing palpitations he was also having chest pain and shortness of breath. Patient converted to sinus rhythm shortly before arriving to the emergency department. Patient was worked up in the emergency department, EKG without acute findings, initial cardiac enzymes negative. Patient was mildly hypokalemic and hypomagnesemic. Patient also has a mechanical heart valve and is mildly subtherapeutic with his Coumadin. ED provider wishes to admit patient for further evaluation and management under observation. Hospital Course: Patient presented with palpitations, chest pain secondary to new onset paroxysm al atrial fibrillation with RVR. Patient converted to normal sinus rhythm prior to admission. Patient stable. Patient seen and evaluated by Cardiology. Cardiology recommended to increase carvedilol to 25 mg 1 pill twice daily. Patient already takes chronic anti coagulation therapy due to his mechanical heart valve. No change in medication. At discharge patient will continue with carvedilol 25 mg 1 pill twice daily. Patient will continue with his current regimen of Coumadin. Recommend to recheck INR within 1 week. Recommend follow up with cardiology in 1 week to follow up this hospitalization and continue his care. Patient with end-stage renal disease on hemodialysis. Patient gets dialysis every Saturday, and Saturday. Patient remained stable at this time. Continue with dialysis as scheduled. Recommend to continue 1500 cc per day fluid restriction and low-salt diet. Recommend to monitor his weight daily. If his weight increases by more than 5 lb he is to contact nephrology for further recommendation. Future medications will need to be renally dosed and monitored. Recommend no further use of nonsteroidal anti-inflammatories. Patient with HIV. Patient goes to HIV specialist. At discharge he will continue with his current regimen. Patient with cirrhosis of the liver secondary to chronic hepatitis-C. This appears stable at this time. Patient with hypertension. As mentioned above carvedilol will be increased. At discharge patient continue with carvedilol 25 mg 1 pill twice daily. Recommend to monitor blood pressure daily. Recommend to maintain blood pressure less than 130/80. Further adjustment can be done by his PCP, Nephrology or Cardiology. Patient with hyperlipidemia. At discharge he will continue with his current medication. Patient had low magnesium level. Magnesium provided. This can be further monitored by nephrology as an outpatient. General: Alert, In no apparent distress, Oriented x3, Cooperative HEENT: Atraumatic Neck: Supple Respiratory: Clear to auscultation bilaterally, Normal air movement Cardiovascular: Normal pulses, Regular rate/rhythm Gastrointestinal: Normal bowel sounds, Soft and benign, Non-distended, No tenderness, No masses, No rebound, No guarding Musculoskeletal: No erythema, No tenderness, No warmth Integumentary: No tenderness/swelling, No erythema, No warmth, No cyanosis Neurological: Normal speech, Normal strength at 5/5 x4 extr, Normal tone, Normal affect Laboratory Data at Discharge: WBC 6.9 K/uL (4.3-10.9) 07/15/20 02:15 Hgb 9.3 g/dL (13.6-17.9) L 07/15/20 02:15 Hct 28.0 % (39.6-49.0) L 07/15/20 02:15 Plt Count 203 K/uL (152-406) 07/15/20 02:15 PT 19.5 SECONDS (9.5-12.5) H 07/15/20 02:15 INR 1.67 07/15/20 02:15 Sodium 139 mmol/L (136-145) 07/15/20 02:15 Potassium 3.1 mmol/L (3.5-5.1) L 07/15/20 02:15 BUN 39 mg/dL (7-18) H 11/13/20 02:15 Creatinine 3.94 mg/dL (0.55-1.3) H 07/15/20 02:15 Glucose 121 mg/dL (74-106) H 07/15/20 02:15 Magnesium 1.7 mg/dL (1.8-2.4) L 07/15/20 02:15 Total Bilirubin 0.6 mg/dL (0.2-1.0) 07/15/20 02:15 AST 60 U/L (15-37) H 07/15/20 02:15 ALT 41 U/L (12-78) 07/15/20 02:15 Alkaline Phosphatase 167 U/L (45-117) H 07/15/20 02:15 Troponin I < 0.02 ng/mL (0.0-0.045) 07/15/20 05:05 Home Medications: Lamivudine [Epivir] 2.5 ml PO BID 02/18/18 Lopinavir/Ritonavir [Kaletra 200-50 MG Tablet*] 2 tab PO BID 05/17/18 Raltegravir Potassium [Isentress*] 400 mg PO BID 05/17/18 Warfarin Sodium [Coumadin*] 10 mg PO DAILY 5 PM 05/17/18 Aspirin Chewable [Aspirin Chewable*] 81 mg PO DAILY 05/18/18 Folic Acid/Vit B Complex and C [Daija-Kodak Tablet] 1 tab PO DAILY 05/18/18 Calcium Acetate 1 cap PO BID 03/09/19 Amoxicillin/Potassium Clav [Augmentin 500-125 Tablet] 1 each PO DAILY #7 tablet 07/30/19 carvediloL [Coreg] 25 mg PO BID #60 tab 07/15/20 New Medications: carvediloL [Coreg] 25 mg PO BID #60 tab Patient Discharge Instructions: 1. Recommend follow up with his PCP in 1 week to follow up this hospitalization. 2. Patient presented with palpitations, chest pain secondary to new onset paroxysmal atrial fibrillation with RVR. Patient converted to normal sinus rhythm prior to admission. Patient stable. Patient seen and evaluated by Cardiology. Cardiology recommended to increase carvedilol to 25 mg 1 pill twice daily. Patient already takes chronic anti coagulation therapy due to his mechanical heart valve. No change in medication. At discharge patient will continue with carvedilol 25 mg 1 pill twice daily. Patient will continue with his current regimen of Coumadin. Recommend to recheck INR within 1 week. Recommend follow up with cardiology in 1 week to follow up this hospitalization and continue his care. 3. Patient with end- stage renal disease on hemodialysis. Patient gets dialysis every Saturday, and Saturday. Patient remained stable at this time. Continue with dialysis as scheduled. Recommend to continue 1500 cc per day fluid restriction and low-salt diet. Recommend to monitor his weight daily. If his weight increases by more than 5 lb he is to contact nephrology for further recommendation. Future medications will need to be renally dosed and monitored. Recommend no further use of nonsteroidal anti-inflammatories. 4. Patient with HIV. Patient goes to HIV specialist. At discharge he will continue with his current regimen. 5. Patient with cirrhosis of the liver secondary to chronic hepatitis-C. This appears stable at this time. 6. Patient with hypertension. As mentioned above carvedilol will be increased. At discharge patient continue with carvedilol 25 mg 1 pill twice daily. Recommend to monitor blood pressure daily. Recommend to maintain blood pressure less than 130/80. Further adjustment can be done by his PCP, Nephrology or Cardiology. 7. Patient with hyperlipidemia. At discharge he will continue with his current medication. 8. Patient had low magnesium level. Magnesium provided. This can be further monitored by nephrology as an outpatient. Diet: Renal (1500 cc per day fluid restriction) Activity: Ad pedro Followup: Unknown,U [Primary Care Provider] - Time spent managing pt's care (in minutes): 55
--- NOTE | 2020-07-15 08:40 | RAD REPORT ---
EXAM DESCRIPTION: RAD - Chest Single View - 07/15/2020 2:38 am CLINICAL HISTORY: CHEST PAIN, supraventricular tachycardia on EMS arrival, converted prior to arrivi ng at the hospital COMPARISON: April 25 TECHNIQUE: AP portable chest image was obtained 07/15/2020 2:38 am . FINDINGS: Lung volumes are low. Patchy right base opacification present similar to comparison. Chron ic pleural and parenchymal opacification at the left base again noted. Left pleural effusion has dimi nished since comparison. Heart size is prominent but diminished. Vasculature also decreased. No pneum othorax. No acute bony abnormality seen. No acute aortic findings suspected. IMPRESSION: Chronic pleural and parenchymal changes are present accentuated somewhat by low lung vol umes. Overall chest is substantially improved from April 25 comparison. No significant failure or volume overload seen.
[2020-07-15] MEDS ORDERED: LAMIVUDINE PO SCH (09:00)
[2020-07-15] MEDS ORDERED: MULTIVITAMINS,THERAPEUT 1 TAB PO SCH (09:00)
[2020-07-15] MEDS ORDERED: CA ACETATE 667 MG CAP PO SCH (09:00)
[2020-07-15] MEDS ORDERED: RALTEGRAVIR POTASSIUM 400 MG TABLET PO SCH (09:00)
[2020-07-15] MEDS ORDERED: LOPINAVIR PO SCH (09:00)
[2020-07-15] MEDS ORDERED: RITONAVIR PO SCH (09:00)
[2020-07-15] MEDS ORDERED: ASPIRIN 81 MG CHEWABLE TABLET PO SCH (09:00)
[2020-07-15] MEDS ORDERED: ASPIRIN EC 81 MG TAB PO ONE (10:48)
[2020-07-15 11:43] VITALS: BP 112/62; TEMP 97.8
[2020-07-15] MEDS ORDERED: WARFARIN SODIUM 5 MG TAB PO SCH (17:00)
--- NOTE | 2020-07-15 19:51 | P.CNS ---
Date of Consult: 07/15/20 Reason for Consult: ESRD Requesting Physician: Scout Carr Primary Care Provider: HIV clinic; Nephrology Dr. Washburn Chief Complaint: Chest pain History of Present Illness: 65-year-old male with history of HIV, hepatitis-C, cirrhosis of the liver, diabetes mellitus type 2, end-stage renal disease, hypertension, hyperlipidemia presents emergency department for chest pain and palpitations. Patient reports that he has woken from sleep feeling as if his heart was racing, EMS was called. Patient appeared to be in atrial fibrillation with rapid ventricular response with a rate of around 170. At the time he is experiencing palpitations he was also having chest pain and shortness of breath. Patient converted to sinus rhythm shortly before arriving to the emergency department. Patient was worked up in the emergency department, EKG without acute findings, initial cardiac enzymes negative. Patient was mildly hypokalemic and hypomagnesemic. Patient also has a mechanical heart valve and is mildly subtherapeutic with his Coumadin. ED provider wishes to admit patient for further evaluation and management under observation. Recent extended hospital stay in [place]. 02:16 This 65 yrs old Black Male presents to ER via EMS with complaints of chest pain ans beny sob, fast hr. 02:16 The patient has shortness of breath at rest, with light activity. Onset: The beny symptoms/episode began/occurred just prior to arrival. Duration: The symptoms are continuous, but are markedly better than the original presentation. The patient's shortness of breath has no apparent modifying factors. The patient or guardian reports chest pain that is located primarily in the substernal area, anterior chest wall. Onset: just prior to arrival. The pain does not radiate. Associated signs and symptoms: The patient has no apparent associated signs or symptoms. Severity of symptoms: At their worst the symptoms were moderate in the emergency department the symptoms are unchanged. Associated signs and symptoms: The patient has no apparent associated signs or symptoms. Allergies codeine Allergy (Verified 05/17/18 03:42) Itching Home medications list reviewed: Yes Home Medications: Lamivudine [Epivir] 2.5 ml PO BID 02/18/18 Lopinavir/Ritonavir [Kaletra 200-50 MG Tablet*] 2 tab PO BID 05/17/18 Raltegravir Potassium [Isentress*] 400 mg PO BID 05/17/18 Warfarin Sodium [Coumadin*] 10 mg PO DAILY 5 PM 05/17/18 Aspirin Chewable [Aspirin Chewable*] 81 mg PO DAILY 05/18/18 Folic Acid/Vit B Complex and C [Daija-Kodak Tablet] 1 tab PO DAILY 05/18/18 Calcium Acetate 1 cap PO BID 03/09/19 Amoxicillin/Potassium Clav [Augmentin 500-125 Tablet] 1 each PO DAILY #7 tablet 07/30/19 carvediloL [Coreg] 25 mg PO BID #60 tab 07/15/20 - Past Medical/Surgical History Diabetic: Yes -: HIV-AIDS -: Hepatitis C -: Chronic anti coagulation therapy -: Hypertension -: [place] Sarcoma of the LLE -: Mechanical heart valve on Coumadin -: Cirrhosis -: ESRD on HD Saturday -: AV fistula to the LUE -: Mitral Valve Replacement, mechanical Psychosocial/ Personal History: He has been with his current partner for years, 7-children, Disabled. - Family History Father Medical History: Diabetes, Other (see notes) Notes: bilateral amputee Mother Medical History: Heart disease, Hypertension, Stroke - Social History Smoking Status: Unknown if ever smoked Alcohol use: No CD- Drugs: No Caffeine use: Yes Place of Residence: Home Review of Systems 10-point ROS is otherwise unremarkable General: Weakness, Malaise Respiratory: SOB with Excertion Cardiovascular: Palpitations Neurological: Weakness Physical Examination Temp Pulse Resp BP Pulse Ox 97.8 F 74 12 112/62 100 07/15/20 08:00 07/15/20 08:00 07/15/20 08:00 07/15/20 08:00 07/15/20 08:00 General: In no apparent distress, Oriented x3, Cooperative HEENT: Atraumatic Neck: Supple Respiratory: Clear to auscultation bilaterally Cardiovascular: No edema, Regular rate/rhythm Gastrointestinal: Soft and benign, Non-distended Musculoskeletal: No clubbing, No contractures Integumentary: No rashes, No cyanosis Neurological: Normal speech Laboratory Data (last 24 hrs) 07/15/20 02:15: PT 19.5 H, INR 1.67 07/15/20 02:15: WBC 6.9, Hgb 9.3 L, Hct 28.0 L, Plt Count 203 07/15/20 02:15: Sodium 139, Potassium 3.1 L, BUN 39 H, Creatinine 3.94 H, Glucose 121 H, Magnesium 1.7 L, Total Bilirubin 0.6, AST 60 H, ALT 41, Alkaline Phosphatase 167 H Imagings Data: EXAM DESCRIPTION: RAD - Chest Single View - 07/15/2020 2:38 am CLINICAL HISTORY: CHEST PAIN, supraventricular tachycardia on EMS arrival, converted prior to arriving at the hospital COMPARISON: April 25 TECHNIQUE: AP portable chest image was obtained 07/15/2020 2:38 am . FINDINGS: Lung volumes are low. Patchy right base opacification present similar to comparison. Chronic pleural and parenchymal opacification at the left base again noted. Left pleural effusion has diminished since comparison. Heart size is prominent but diminished. Vasculature also decreased. No pneumothorax. No acute bony abnormality seen. No acute aortic findings suspected. IMPRESSION: Chronic pleural and parenchymal changes are present accentuated somewhat by low lung volumes. Overall chest is substantially improved from April 25 comparison. No significant failure or volume overload seen. Conclusions/Impression: A/ ESRD on HD Hypokalemia Hypomagnesemia HTN with CKD/ CHF Diastolic CHF, chronic DM II with CKD Moderate malnutrition Anemia in CKD BEBO/ Secondary HyperPTH HIV/ AIDS P/ Continue current POC and Medications Next HD Saturday. Restart home medications as indicated. Follow up with cardiology. No NSAIDs. AM labs. Daily weight. Thank you kindly for the consultation. Case reviewed with Dr. Carr and Dr. Johnson.
--- NOTE | 2020-07-17 07:48 | EKG ---
Test Date: 2020-07-15 Test Time: 02:30:17 Search Engine Marketing Specialist: RV MEASUREMENT RESULTS: Intervals: Rate: 79 KS: 186 QRSD: 92 QT: 416 QTc: 477 [place]: P: 42 KS: 186 QRS: 55 T: 67 INTERPRETIVE STATEMENTS: Normal sinus rhythm Minimal voltage criteria for LVH, may be normal variant Borderline ECG Compared to ECG 04/25/2020 17:17:26 Sinus arrhythmia no longer present Electronically Signed On 07-17-20 07:41:43 G[employer]ATION MANAGER by Rafael Bedolla
== END 2020-07-15 12:38 | disposition home or self-care (01) ==
LOC: ER 02:03 → ERHOLD 04:06
PROVIDERS: ADMIT Family Medicine; ATTEND Family Medicine
DX: I48.0 Paroxysmal atrial fibrillation (principal); R00.2 Palpitations; Z95.2 Presence of prosthetic heart valve; I12.0 Hypertensive chronic kidney disease with stage 5 chronic kidney disease or end stage renal disease; N18.6 End stage renal disease; Z99.2 Dependence on renal dialysis; Z20.828 Contact with and (suspected) exposure to other viral communicable diseases; Z79.01 Long term (current) use of anticoagulants; E78.5 Hyperlipidemia, unspecified; K74.60 Unspecified cirrhosis of liver; E11.22 Type 2 diabetes mellitus with diabetic chronic kidney disease; E87.6 Hypokalemia; E83.42 Hypomagnesemia; B18.2 Chronic viral hepatitis C; B20 Human immunodeficiency virus [HIV] disease; Z79.84 Long term (current) use of oral hypoglycemic drugs; C46.7 Kaposi's sarcoma of other sites
CPT/HCPCS: 96361; 93005; 85025; 80048; 36415; 83735; 85610; 82947 ×2; 80076; 84443; 84484 ×3; 84439; 83880; 71045; 96374; 99285; U0002; J3475; J7040

== ENCOUNTER 2020-10-22 16:25 | Emergency (ER) | payer OTHER ==
--- OUTSIDE RECORDS SUMMARY | 2020-10-22 16:29 | XMS REPORT | Clinical Summary ---
:1955 Author Organization [facility] Address [address] [place] [id number] Care Team Providers Name Role Phone Gurinder Chand MD Primary Care Provider Allergies No Known Active Allergies Medications Medication Sig Dispensed Refills Start End Status Date Date calcium acetate TK ONE C PO WITH 11 02/01/20 Active (PHOSLO) 667 mg cap MEALS AND ONE C 17 PO WITH SNACK PROAIR HFA 90 TK 2 PUFFS PO BID 3 11/29/19 Active mcg/actuation PRN 18 inhaler PEDRO-EAMON 0.8 mg TK 1 T PO QD 3 11/21/19 Active per tablet 18 VIOS Anabel see 0 09/30/19 Active administration 18 instruction. aspirin 81 mg TK 1 T PO QD 0 06/05/20 Act samreen delayed release 18 tablet warfarin (COUMADIN) TK 1 T PO QD WITH 90 tablet 3 03/17/20 Active 1 mg 10 MG FOR A TOTAL 19 tabletIndications: DAILY DOSE OF 11 Mitral valve MG. replaced atropine (ISOPTO Instill 1 Drop in 5 mL 2 04/15/20 Active ATROPINE) 1 % left eye daily. 19 ophthalmic solutionIndications : Chronic uveitis of left eye polyethylene glycol Add lukewarm 4000 mL 0 07/10/20 Active (GOLYTELY) drinking water to 19 [id number] the fill brynn (4 -5.86 gram oral liters) and solutionIndications shake. Drink as : Occult blood directed by your positive stool doctor.. fluocinonide Apply to affected 30 g 0 10/19/19 Active (LIDEX) 0.05 % area 2 times 20 topical daily. creamIndications: Phimosis prednisoLONE Instill 1 Drop in 5 mL 5 01/27/20 Active acetate (PRED left eye daily. 20 FORTE) 1 % ophthalmic suspensionIndicatio ns: Chronic uveitis of left eye polyethylene glycol Add lukewarm 4000 mL 0 04/08/20 Active (GOLYTELY) drinking water to 20 [id number] the fill brynn (4 -5.86 gram oral liters) and solutionIndications shake. Drink as : Occult blood directed by your positive stool doctor.. ergocalciferol TAKE 1 CAPSULE BY 12 capsule 0 04/08/20 Active (VITAMIN D2) 1,250 MOUTH ONCE A 20 mcg (50,000 unit) WEEK. capsuleIndications: Vitamin D deficiency pantoprazole Take 1 tablet by 90 tablet 1 04/08/20 Active (PROTONIX) 40 mg mouth daily. 20 delayed release tabletIndications: Ulcer of esophagus without bleeding carvediloL (COREG) TAKE 1 TABLET BY 180 tablet 0 04/25/20 Active 12.5 mg MOUTH TWICE DAILY 20 tabletIndications: WITH MEALS Essential hypertension atorvastatin Take 1 tablet by 90 tablet 3 05/24/20 Active (LIPITOR) 20 mg mouth at bedtime 20 tabletIndications: nightly. Type 2 diabetes mellitus without complication, without long-term current use of insulin, Mixed hyperlipidemia NOVASOURCE RENAL 2 Take 2 Packages 80462 mL 2 09/16/19 Active KATIE oral by mouth 2 times 21 liquidIndications: daily. Weight loss, unintentional, Weight loss of more than 10% body weight NOVASOURCE RENAL 2 Take 2 Packages 08733 mL 2 09/16/19 Active KATIE oral by mouth 2 times 21 liquidIndications: daily. Weight loss, unintentional, Weight loss of more than 10% body weight warfarin (COUMADIN) Take [id number] 45 tablet 09/29/19 Active 10 mg tablet (15mg) on 21 tabletIndications: MWF and one Anticoagulation tablet (10mg) all adequate other days.. raltegravir Take 1 tablet by 60 tablet 10/21/19 A ctive (ISENTRESS) 400 mg mouth 2 times 21 tabletIndications: daily. HIV (human immunodeficiency virus infection) lamiVUDine (EPIVIR) TAKE 2.5 ML BY 75 mL 10/21/19 Active 10 mg/mL oral MOUTH EVERY DAY. 21 solutionIndications : HIV (human immunodeficiency virus infection) lopinavir-RITONavir Take 2 tablets by 120 tablet 5 10/21/19 Active (KALETRA) 200-50 mg mouth 2 times 21 per daily. tabletIndications: HIV (human immunodeficiency virus infection) warfarin (COUMADIN) TK 1 T PO QHS 0 06/05/20 Discontinued 10 mg tablet ALONG WITH (Other ) WARFARIN 1MG FOR A TOTAL 11MG PER DAY triamcinolone Apply to affected 80 g 1 10/03/19 Discontinued (KENALOG) 0.1 % area 2 times ( Other) ointmentIndications daily. : Bedbug bite, initial encounter ergocalciferol TAKE 1 CAPSULE BY 12 capsule 0 03/16/20 Discontinued (VITAMIN D2) 50,000 MOUTH ONCE A (Reorder) unit WEEK. capsuleIndications: Vitamin D deficiency carvedilol (COREG) Take 1 tablet by 90 tablet 0 03/16/2011/01 Discontinued 12.5 mg mouth 2 times (Dupli brooke tabletIndications: daily (with Order) Hypertension, meals). unspecified type pantoprazole Take 1 tablet by 90 tablet 1 03/18/20 Discontinued (PROTONIX) 40 mg mouth daily. (Reorder) delayed release tabletIndications: Ulcer of esophagus without bleeding atorvastatin Take 1 tablet by 90 tablet 3 03/18/20 Discontinued (LIPITOR) 20 mg mouth at bedtime (Reorder) tabletIndications: nightly. Type 2 diabetes mellitus without complication, without long-term current use of insulin, Mixed hyperlipidemia carvedilol (COREG) TAKE 1 TABLET BY 180 tablet 1 03/19/2027/10 Discontinued 12.5 mg MOUTH TWICE DAILY (R eorder) tabletIndications: WITH MEALS Essential hypertension prednisoLONE Instill 1 Drop in 5 mL 5 04/15/20 Discontinued acetate (PRED left eye 4 times (Reorder) FORTE) 1 % daily. ophthalmic suspensionIndicatio ns: Chronic uveitis of left eye raltegravir Take 1 tablet by 60 tablet 5 05/18/20 D iscontinued (ISENTRESS) 400 mg mouth 2 times (Reorder) tabletIndications: daily. HIV (human immunodeficiency virus infection) lamiVUDine (EPIVIR) TAKE 2.5 ML BY 50 mL 5 07/01/2011/24 Discontinued 10 mg/mL oral MOUTH EVERY DAY. (Reorder) solutionIndications : HIV (human immunodeficiency virus infection) codeine-guaiFENesin Take 5 mL by 150 mL 0 09/30/19 Discontinued (GUAIFENESIN AC) mouth 3 times 20 020 (Other) 10-100 mg/5 mL daily as needed syrupIndications: for Cough. Chronic cough lopinavir-RITONavir Take 2 tablets by 120 tablet 5 10/16/19 0 Discontinued (KALETRA) 200-50 mg mouth 2 times 20 020 (Reorder) per daily. tabletIndications: HIV (human immunodeficiency virus infection) warfarin (COUMADIN) Take jhi-bqs-yrhz 45 tablet 5 10/16/19 Discontinued 10 mg tablet (15mg) on (Re order) tabletIndications: MWF and one Anticoagulation tablet (10mg) all adequate other days.. raltegravir Take 1 tablet by 60 tablet 2 11/25/19 D iscontinued (ISENTRESS) 400 mg mouth 2 times 20 020 (Reorder) tabletIndications: daily. HIV (human immunodeficiency virus infection) lamiVUDine (EPIVIR) TAKE 2.5 ML BY 50 mL 2 11/25/1911/25 Discontinued 10 mg/mL oral MOUTH EVERY DAY. 020 (Reorder) solutionIndications : HIV (human immunodeficiency virus infection) lopinavir-RITONavir Take 2 tablets by 120 tablet 2 11/25/19 0 Discontinued (KALETRA) 200-50 mg mouth 2 times 20 020 (Reorder) per daily. tabletIndications: HIV (human immunodeficiency virus infection) carvediloL (COREG) TAKE 1 TABLET BY 180 tablet 0 11/25/1928/10 Discontinued 12.5 mg MOUTH TWICE DAILY (R eorder) tabletIndications: WITH MEALS. Essential hypertension atorvastatin Take 1 tablet by 90 tablet 0 11/24/ Discontinued (LIPITOR) 20 mg mouth at bedtime 20 020 (Reorder) tabletIndications: nightly. Type 2 diabetes mellitus without complication, without long-term current use of insulin, Mixed hyperlipidemia carvediloL (COREG) TAKE 1 TABLET BY 180 tablet 0 11/26/1926/10 Discontinued 12.5 mg MOUTH TWICE DAILY 20 020 tabletIndications: WITH MEALS. Essential hypertension atorvastatin Take 1 tablet by 90 tablet 0 11/26/19 Discontinued (LIPITOR) 20 mg mouth at bedtime 20 020 (Reorder) tabletIndications: nightly. Type 2 diabetes mellitus without complication, without long-term current use of insulin, Mixed hyperlipidemia raltegravir Take 1 tablet by 60 tablet 2 11/26/19 D iscontinued (ISENTRESS) 400 mg mouth 2 times 20 020 tabletIndications: daily. HIV (human immunodeficiency virus infection) lamiVUDine (EPIVIR) TAKE 2.5 ML BY 50 mL 2 11/26/1903/10 Discontinued 10 mg/mL oral MOUTH EVERY DAY. 20 020 (Reorder) solutionIndications : HIV (human immunodeficiency virus infection) lopinavir-RITONavir Take 2 tablets by 120 tablet 2 11/26/19 0 Discontinued (KALETRA) 200-50 mg mouth 2 times 20 021 (Reorder) per daily. tabletIndications: HIV (human immunodeficiency virus infection) mupirocin calcium Apply to affected 15 g 0 01/06/2005/05 0 Discontinued (BACTROBAN) 2 % area 3 times 20 020 ( Other) topical daily. creamIndications: Open wound lamiVUDine (EPIVIR) TAKE 2.5 ML BY 75 mL 5 03/10/2010/21 Discontinued 10 mg/mL oral MOUTH EVERY DAY. 20 021 (Reorder) solutionIndications : HIV (human immunodeficiency virus infection) ISENTRESS 400 mg TAKE 1 TABLET BY 60 tablet 2 03/11/20 Discontinued tabletIndications: MOUTH TWICE DAILY 20 021 (Reorder) HIV (human immunodeficiency virus infection) NOVASOURCE RENAL 2 Take 2 Packages 88668 mL 2 08/12/2009/16 Discontinued KATIE oral by mouth 2 times 20 021 (Re order) liquidIndications: daily. Weight loss, unintentional, Weight loss of more than 10% body weight NOVASOURCE RENAL 2 Take 2 Packages 14613 mL 2 09/16/1909/16 Discontinued KATIE oral by mouth 2 times 21 021 (Re order) liquidIndications: daily. 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 Chronic anterior uveitis, left 06/17/[address]retinal detachment), total/subtotal, left 1 S/P MVR (mitral valve replacement) 07/04/2018 Hepatic cirrhosis due to chronic hepatitis C infection 12/03/2016 Chronic hepatitis C without hepatic coma 10/10/2015 Type 2 diabetes mellitus with hyperglycemia 04/29/2015 CKD (chronic kidney disease) stage 4, GFR 15-29 ml/min 10/26/2014 Microalbuminuria 12/25/2012 History of atrial flutter 06/26/2012 Nonproliferative diabetic retinopathy 06/26/2012 Mitral regurgitation 06/26/2012 Hepatitis A immune 06/26/2012 Hepatitis B immune 06/26/2012 Osteopenia 04/26/2012 Osteoporosis, unspecified 04/26/2012 History of thrombocytopenia 03/13/2012 Chronic renal insufficiency 03/13/2012 Anemia, unspecified 08/16/2011 Macrocytosis 08/16/2011 Vitamin D deficiency 12/26/2010 Basal cell carcinoma, leg 05/04/2010 Overview: 2008 Leg swelling 05/04/2010 Overview: Left ... After [place] Dyslipidemia 05/04/2010 Human immunodeficiency virus (HIV) disease 09/20/2009 HTN (hypertension) 07/12/2009 Diabetes mellitus 06/14/2009 KS (Kaposi's sarcoma) 06/14/2009 Encounters Date Type Specialty Care Team Description 10/21/2020 Refill Infectious Diseases Gurinder Chand MD 10/12/2020 Immunization Brad Ríos MD Encounter for immunization (P rimary Dx) 10/06/2020 Office Visit Clinical Pharmacy [facility] RPH monitoring, INR range 2.5-3.5 (Primar y Dx) 10/04/2020 Orders Only Infectious Diseases Gurinder Chand MD 09/29/2020 Refill Infectious Diseases Gurinder Chand MD 09/23/2020 Ancillary Procedure Radiology Chronic hepatitis C without hepatic coma; Other cirrhosis of liver 09/16/2020 Office Visit Infectious Diseases [place], Netanya Asympto matic HIV infection (Primary Dx); MD Xavier Weight loss, un intentional; Weight loss of more than 10% body weight; Type 2 diabetes mellitus without complication, without long-term current use of insulin; Chronic hepatit is C without hepatic coma; Essential hyper tension; Other cirrhosis of liver 09/16/2020 Refill Infectious Diseases Gurinder Chand MD 08/12/2020 Telephonic Nutrition Gurinder Chand MD [place], Alishia S, LD 08/05/2020 Office Visit Infectious Diseases Gurinder Chand HIV infection (Primary Dx); MD Xavier Essential hyper tension; Chronic hepatit is C without hepatic coma; Type 2 diabetes mellitus without complication, without long-term current use of insulin; H/O heart valve replacement with mechanical valve; Loss of weight; Tooth loss 08/05/2020 Orders Only Infectious Diseases Gurinder Chand MD 06/01/2020 Refill Infectious Diseases Gurinder Chand MD 05/24/2020 Refill Infectious Diseases Gurinder Chand Medicat juan Park MD 05/04/2020 Office Visit Clinical Pharmacy [facility], Anticoagu lation RPH monitoring, INR range 2.5-3.5 (Primar y Dx) 04/25/2020 Refill Infectious Diseases Gurinder Chand MD 04/20/2020 Office Visit Clinical Pharmacy [facility], Anticoagu lation RPH monitoring, INR range 2.5-3.5 (Primar y Dx) 04/11/2020 Ancillary Procedure Radiology Other ci rrhosis of liver; Chronic hepatit is C without hepatic coma 04/08/2020 Office Visit Infectious Diseases Gurinder Chand HIV infection (Primary Dx); MD Xavier Vitamin D defic iency; Ulcer of esopha carlos without bleeding; Occult blood po sitive stool; Essential hyper tension; Mixed hyperlipi demia; Other cirrhosis of liver; Chronic hepatit is C without hepatic coma; H/O heart valve replacement with mechanical valve; Type 2 diabetes mellitus without complication, without long-term current use of insulin 04/06/2020 Office Visit Clinical Pharmacy [facility], Anticoagu lation RPH monitoring, INR range 2.5-3.5 (Primar y Dx) 03/23/2020 Office Visit Clinical Pharmacy [facility], Anticoagu lation RPH monitoring, INR range 2.5-3.5 (Primar y Dx) 03/11/2020 Refill Infectious Diseases Gurinder Chand MD 03/10/2020 Refill Infectious Diseases Gurinder Chand Medicat juan Park MD 02/24/2020 Office Visit Clinical Pharmacy [facility] Manuel, Anticoagu lation RPH monitoring, INR range 2.5-3.5 (Primar y Dx) 02/10/2020 Office Visit Clinical Pharmacy [facility], Anticoagu lation RPH monitoring, INR range 2.5-3.5 (Primar y Dx) 01/27/2020 Office Visit Ophthalmology Drew Lopez Nonproliferat samreen diabetic retinopathy (Primary Dx); MD Ari Chronic uveitis of left eye; Recent rd (reti nal detachment), total/subtotal, left 01/27/2020 Office Visit Clinical Pharmacy [facility], Manuel, Anticoagu lation RPH monitoring, INR range 2.5-3.5 (Primar y Dx) 01/12/2020 Office Visit Clinical Pharmacy Zerkeith, Manuel, Anticoagu lation RPH monitoring, INR range 2.5-3.5 (Primar y Dx) 01/06/2020 Office Visit Javier, Open wound (Cata gladys Dx); Gabrielle Paul NP Human immunodef iciency virus (HIV) disease 01/06/2020 Orders Only Infectious Diseases Gurinder Chand MD 12/28/2019 Telephonic Clinical Pharmacy [facility] Manuel, Anticoagu lation goal Encounter RPH of INR 2.5 to 3 .5 (Primary Dx) 12/23/2019 Telephonic Clinical Pharmacy [facility], Anticoagu lation goal Encounter RPH of INR 2 to 3 ( Primary Dx) 12/23/2019 Telephonic Infectious Diseases Gurinder Chand Asympto matic HIV infection (Primary Dx); Encounter MD Xavier Essential hyper tension; Mixed hyperlipi demia; Other cirrhosis of liver; Chronic hepatit is C without hepatic coma; H/O heart valve replacement with mechanical valve 11/25/2019 Office Visit Chalo Stern Anticoagulation adequate; Thi, RN HIV (human immu nodeficiency virus infection); Essential hyper tension; Type 2 diabetes mellitus without complication, without long-term current use of insulin; Mixed hyperlipi demia 11/25/2019 Office Visit Clinical Pharmacy [facility] Anticoagu latmarlin RPH monitoring, INR range 2.5-3.5 (Primar y Dx) 11/25/2019 Refill Infectious Diseases Mariola Blissati manjit Serrato RN 10/28/2019 Office Visit Clinical Pharmacy [facility] Anticoagu lation RPH monitoring, INR range 2.5-3.5 (Primar y Dx) after 10/22/2019 Immunizations Name Administration Dates Next Due Hepatitis B Vaccine 01/11/2011, 06/02/2010, 05/04/2010 Influenza Vaccine 10/31/2016, 10/19/2014, 05/26/2013, 06/27/2012, 05/29/2011, 06/27/2010, 07/12/2009 Influenza Vaccine, Seasonal, 08/23/2017 Injectable Moderna Sars-cov-2 Vaccination 10/12/2020 PPD 10/19/2014, 10/29/2013 (Deferred: 2008 Other - Today ), 07/27/2013, 06/27/2012, 03/28/2009, 03/24/2009 (Deferred: Other - No PPDs given on in the clinic. ) PPV 23 (Pneumococcal Polysaccharide 08/23/2017 23 Valent) PPV 23 Pneumococcal Polysaccaride 03/24/2009 Pneumococcal 13-valent conj 0.5 mL 10/29/2013 injection Tdap (Tetanus Toxoid, Reduced 12/02/2018 Diphtheria Toxoid And Acellular Pertussis, Absorbed) Tdap Tetanus, diphtheria, acellular 03/24/2009 pertussis Vaccine Family History Medical History Relation Name Comments Psychiatry Daughter Asthma Mother Diabetes Mother Heart Mother Hypertension Mother Relation Name Status Comments Brother Alive Brother Alive Daughter Alive Daughter Alive Daughter Alive Daughter Alive Daughter Alive Daughter Father Alive Mother Alive Sister Alive Sister Alive Sister Alive Sister Alive Sister Alive Son Alive Son Alive Social History Tobacco Use Types Packs/Day Years Used Date Never Smoker Smokeless Tobacco: Never Used Tobacco Cessation: Counseling Given: No Alcohol Use Drinks/Week oz/Week Comments No None since being Dx'd with HIV, was an occasional drinker. Food Insecurity Answer Date Recorded Within the past 12 months, you worried that your food would Never true 10/03/2018 run out before you got money to buy more. Within the past 12 months, the food you bought just didn't N ever true 10/03/2018 last and you didn't have money to get more. Sex Assigned at Date Recorded Not on file COVID-19 Exposure Response Date Recorded In the last month, have you been in contact with No / Unsure 10/12/2020 10:43 AM [employer] someone who was confirmed or suspected to have Coronavirus / COVID-19? Last Filed Vital Signs Vital Sign Reading Time Taken Comments Blood Pressure 169/91 09/16/2020 1:01 PM [employer] Pulse 87 09/16/2020 1:01 PM [employer] Temperature 36.9 C (98.4 F) 09/16/2020 1:01 PM [employer] Respiratory Rate 18 09/16/2020 1:01 PM [employer] Oxygen Saturation 100% 09/16/2020 1:01 PM [employer] Inhaled Oxygen Concentration - - Weight 68.2 kg (150 lb 6.4 oz) 09/16/2020 1:01 PM [employer] Height 170.2 cm (5' 7") 09/16/2020 1:01 PM [employer] Body Mass Index 23.56 09/16/2020 1:01 PM [employer] Plan of Treatment Date Type Specialty Care Team Description 10/27/2020 Office Visit Clinical Pharmacy [facility], will co me after H dialysis; usually [address] done by 10 am [place], [place] [address] [phone] 11/09/2020 Immunization Moderna#2 12/16/2020 Lab Appointment Lab Gurinder Chand Lab MD [address] [place], [place] [address] [phone] 12/30/2020 Office Visit Infectious Diseases Gurinder Chand Foll ow-Up MD [address] [place], [place] [address] [phone] Health Maintenance Due Date Last Done Comments CT Colonography 2007 Colonoscopy 2007 Colorectal Cancer Screen 2007 Combination FIT-DNA 2007 Flex Sigmoidoscopy 2007 DM Microalbumin Urine Scrn 11/22/2018 11/22/2017, 7, (Yearly) 05/11/2016, Additional history exists IMM Influenza Seasonal Oct to 06/02/2020 08/23/2017, 2016, October (>/= 19 yrs) 07/12/2015, Additional histor y exists DM Retinal Exam (Yearly) 06/17/2020 06/17/2019, 04/15/2019, 01/14/2017, Additional history exists COVID-19 Vaccine (2 of 2 - Moderna 11/09/2020 10/12/2020 series) DM HGBA1C (Yearly) 03/25/2021 03/25/2020, 11/04/2019, 03/23/2019, Additional history exists DM Foot Exam (Yearly) 04/08/2021 04/08/2020, 07/04/2018, 08/23/2017 Goals Goal Patient Goal Associated Recent Patient-Stated? Author Type Problems Progress Use plate Diet No [place], model Karen S, LD Procedures Procedure Name Priority Date/Time Associated Diagnosis Comme nts PTINR POC Routine 10/06/2020 11:24 Results for this AM [employer] procedure are i n the results section. U/S ABDOMEN Routine 09/23/2020 7:59 Chronic hepatitis C Resu lts for this AM [employer] without hepatic coma procedure are in Other cirrhosis of the resul ts liver section. CBC Routine 08/12/2020 9:07 Asymptomatic HIV Results for this AM [employer] infection procedure are i n the results section. HCV RNA QUANT, PCR Routine 08/12/2020 9:07 Chronic hepatitis C Results for this AM [employer] without hepatic coma procedu re are in the results section. SYPHILIS MONITOR FOR Routine 08/12/2020 9:07 Asymptomatic HIV Results for this TREATMENT AM [employer] infection procedure are i n the results section. HIV RNA VIRAL LOAD Routine 08/12/2020 9:07 Asymptomatic HIV R esults for this AM [employer] infection procedure are i n the results section. COMPREHENSIVE Routine 08/12/2020 9:07 Asymptomatic HIV Result s for this METABOLIC PANEL AM [employer] infection procedure ar e in the results section. CD4/CD8 RATIO GRP Routine 08/12/2020 9:07 Asymptomatic HIV Re sults for this AM [employer] infection procedure are i n the results section. CBC/DIFF Routine 08/12/2020 9:07 Asymptomatic HIV Results for this AM [employer] infection procedure are i n the results section. PT/INR Routine 08/12/2020 9:07 H/O heart valve Results for this AM [employer] replacement with procedure a re in mechanical valve the results section. PTINR POC Routine 05/04/2020 8:03 Results for this AM CDT procedure are i n the results section. PTINR POC Routine 04/20/2020 8:15 Results for this AM CDT procedure are i n the results section. U/S ABDOMEN Routine 04/11/2020 7:49 Other cirrhosis of Resul ts for this AM CDT liver procedure are in Chronic hepatitis C the resu lts without hepatic coma section . DIABETIC FOOT EXAM Routine 04/08/2020 10:40 Type 2 diabetes Re sults for this AM CDT mellitus without procedure a re in complication, without the re sults long-term current use sectio n. of insulin PTINR POC Routine 04/06/2020 7:54 Results for this AM CDT procedure are i n the results section. CBC Routine 03/25/2020 9:20 HIV (human Results for this AM CDT immunodeficiency virus proce dure are in infection) the results section. HEMOGLOBIN A1C Routine 03/25/2020 9:20 Type 2 diabetes Result s for this AM CDT mellitus without procedure a re in complication, without the re sults long-term current use sectio n. of insulin LIPID PROFILE Routine 03/25/2020 9:20 Mixed hyperlipidemia Re sults for this AM CDT procedure are i n the results section. HIV RNA VIRAL LOAD Routine 03/25/2020 9:20 HIV (human Resul ts for this AM CDT immunodeficiency virus proce dure are in infection) the results section. COMPREHENSIVE Routine 03/25/2020 9:20 HIV (human Results fo r this METABOLIC PANEL AM CDT immunodeficiency virus pr ocedure are in infection) the results section. CD4/CD8 RATIO GRP Routine 03/25/2020 9:20 HIV (human Result s for this AM CDT immunodeficiency virus proce dure are in infection) the results section. CBC/DIFF Routine 03/25/2020 9:20 HIV (human Results for this AM CDT immunodeficiency virus proce dure are in infection) the results section. PTINR POC Routine 03/23/2020 8:13 Results for this AM CDT procedure are i n the results section. PTINR POC Routine 02/24/2020 7:48 Results for this AM CDT procedure are i n the results section. PTINR POC Routine 02/10/2020 8:02 Results for this AM CDT procedure are i n the results section. PTINR POC Routine 01/27/2020 7:59 Results for this AM CDT procedure are i n the results section. PTINR POC Routine 01/11/2020 8:30 Results for this AM CDT procedure are i n the results section. PT/INR STAT 01/06/2020 9:27 Anticoagulation goal of Results for this AM CDT INR 2.5 to 3.5 procedure are in the results section. RBC MORPHOLOGY-WAM Routine 12/25/2019 8:26 Asymptomatic HIV R esults for this AM CDT infection procedure are i n the results section. CBC Routine 12/25/2019 8:26 Asymptomatic HIV Results for this AM CDT infection procedure are i n the results section. LIPID PROFILE Routine 12/25/2019 8:26 Mixed hyperlipidemia Re sults for this AM CDT procedure are i n the results section. PT/INR Routine 12/25/2019 8:26 H/O heart valve Results for this AM CDT replacement with procedure a re in mechanical valve the results section. B-TYPE NATRIURETIC Routine 12/25/2019 8:26 H/O heart valve Re sults for this PEPTIDE (BNP) AM CDT replacement with procedure are in mechanical valve the results section. HEPATITIS C GENOTYPE Routine 12/25/2019 8:26 Chronic hepatiti s C Results for this AM CDT without hepatic coma procedu re are in the results section. HIV RNA VIRAL LOAD Routine 12/25/2019 8:26 Asymptomatic HIV R esults for this AM CDT infection procedure are i n the results section. COMPREHENSIVE Routine 12/25/2019 8:26 Asymptomatic HIV Result s for this METABOLIC PANEL AM CDT infection procedure ar e in the results section. CD4/CD8 RATIO GRP Routine 12/25/2019 8:26 Asymptomatic HIV Re sults for this AM CDT infection procedure are i n the results section. CBC/DIFF Routine 12/25/2019 8:26 Asymptomatic HIV Results for this AM CDT infection procedure are i n the results section. HCV RNA QUANT, PCR Routine 12/25/2019 8:26 Chronic hepatitis C Results for this AM CDT without hepatic coma procedu re are in the results section. PTINR POC Routine 11/25/2019 8:14 Results for this AM CDT procedure are i n the results section. TP-PA Routine 11/04/2019 8:16 Asymptomatic HIV Results for this AM [employer]ACH[employer] infection procedure are i n the results section. CBC Routine 11/04/2019 8:16 Asymptomatic HIV Results for this AM [employer]ACH[employer] infection procedure are i n the results section. B-TYPE NATRIURETIC Routine 11/04/2019 8:16 Chronic systolic R esults for this PEPTIDE (BNP) AM [employer]ACH[employer] congestive heart procedure are in failure the results section. HEMOGLOBIN A1C Routine 11/04/2019 8:16 Type 2 diabetes Result s for this AM MACH[employer]ATOR [employer] mellitus without procedure a re in complication, without the re sults long-term current use sectio n. of insulin CD4/CD8 RATIO GRP Routine 11/04/2019 8:16 Asymptomatic HIV Re sults for this AM [employer]ACH[employer] infection procedure are i n the results section. HIV RNA VIRAL LOAD Routine 11/04/2019 8:16 Asymptomatic HIV R esults for this AM [employer] infection procedure are i n the results section. SYPHILIS SCREEN FOR Routine 11/04/2019 8:16 Asymptomatic HIV Results for this INFECTION AM [employer]ACH[employer] infection procedure are i n the results section. COMPREHENSIVE Routine 11/04/2019 8:16 Asymptomatic HIV Result s for this METABOLIC PANEL AM [employer]ACH[employer] infection procedure ar e in the results section. CBC/DIFF Routine 11/04/2019 8:16 Asymptomatic HIV Results for this AM [employer]ACH[employer] infection procedure are i n the results section. PTINR POC Routine 10/28/2019 8:08 Results for this AM MACH[employer]ATOR [employer] procedure are i n the results section. after 10/22/2019 Results POCT PTINR POC docked device (10/06/2020 11:24 AM MACHINE OPERATOR FARMWORKER)Only the most recent of11 resultswithin the time period is included. PT POC 15.2 (H) 10.9 - 13.[address] Seconds LAB INR POC 1.3 [address] to INR [address] Comment: therapeutic ranges LAB SUGGESTED THERAPEUTIC RANGES: INR 2.0-3.0 for MODERATE INTENSITY ANTICOAGULATION INR 2.5-3.5 for HIGH INTENSITY ANTICOAGULATION Specimen Blood, capillary Performing Organization Address City/State/ZIP Code Phon e Number [facility] [address] [facility] ([place], [place] [address] [phone] U/S ABDOMEN (09/23/2020 7:59 AM MACHINE OPERATOR FARMWORKER)Only the most recent of2 resultswithin the time period is included. Specimen Impressions Performed At IMPRESSION: SMS 1. Heterogenous/coarsened echotexture with increased echogenicity of the liver is suggestive of hepatocellula r dysfunction in the setting of hepatitis C with concurrent hepatic stea tosis. No focal hepatic lesions. 2. Bilateral atrophic, echogenic kidne ys is consistent with medical renal disease. 3. Hyperechoic lesions adjacent to the gallbladder w all are nonspecific and may represent small polyps and/or st ones. No acute cholecystitis. If the report is "FINALIZED" it indicate s that the attending/staff radiologist has reviewed the images and agrees with the resident's interpretation. Dictated By: Anup Cash, 09/23/2020 8:2 0 AM I have reviewed the study and agree with the findings in this report. Signed By: Sharath Guallpa MD, 09/25/2020 7:14 PM Narrative Performed At EXAM: Complete Abdominal Ultrasound SMS INDICATION: HCV, cirrhosis COMPARISON: Abdominal ultrasound 04/11/20 TECHNIQUE: Transverse and longitudinal i mages of the upper abdomen were obtained. FINDINGS: Liver: Size: 17 cm in the right midclavi cular line, enlarged. Appearance: Coarsened echotexture , increased echogenicity, smooth contour. Mass: No focal masses. Spleen: Size: 12 cm in length, normal in size. Echogenicity: Normal. Mass: No focal masses. Gallbladder: Stones/Sludge: Mobile hyperechoic, homogenous f oci. However, there is no clear posterior acoustic shadowing or twinkle artifact on color Doppler. Wall: 0.2 cm. Appearance: No pericholecystic fl uid or hydrops. Sonographic Guzmán's Sign: Negati ve. Bile Ducts: Intrahepatic Ducts: No dilatation . Extrahepatic Ducts: Common bile d uct measures 0.5 cm, no dilatation. Pancreas: Increased echogenicity in the visualized portio ns of the pancreatic head, neck and proximal body. Right Kidney: Size: 8 cm (in length). Echogenicity: Thin and echogenic. Parenchymal thickness: Normal. Collecting System: No hydronephro sis. Stone: None. Cyst/Mass: None. Left Kidney: Size: 8 cm (in length). Echogenicity: Thin and echogenic. Parenchymal thickness: Normal. Collecting System: No hydronephro sis. Stone: None. Cyst/Mass: None. Vessels: Aorta: Visualized portions are no rmal. Inferior Vena Cava: Visualized po rtions are normal. Main Portal Vein: 1.3 cm, normal in size with hepatopetal flow. Free Fluid: No ascites or pleural effusion. Procedure Note Interface, Rad/Mammog In - 09/25/2020 7 :19 PM MACHINE OPERATOR FARMWORK[employer] EXAM: Complete Abdominal Ultrasound INDICATION: HCV, cirrhosis COMPARISON: Abdominal ultrasound 04/11/20 TECHNIQUE: Transverse and longitudinal i mages of the upper abdomen were obtained. FINDINGS: Liver: Size: 17 cm in the right midclavicu lar line, enlarged. Appearance: Coarsened echotexture, increased echogenicity, smooth contour. Mass: No focal masses. Spleen: Size: 12 cm in length, normal in si ze. Echogenicity: Normal. Mass: No focal masses. Gallbladder: Stones/Sludge: Mobile hyperechoic, homogenous foci. However, there is no clear posterior acoustic shadowing or twinkle artifact on color Doppler. Wall: 0.2 cm. Appearance: No pericholecystic flui d or hydrops. Sonographic Guzmán's Sign: Negative . Bile Ducts: Intrahepatic Ducts: No dilatation. Extrahepatic Ducts: Common bile august t measures 0.5 cm, no dilatation. Pancreas: Increased echogenicity in the visua lized portions of the pancreatic head, neck and proximal body. Right Kidney: Size: 8 cm (in length). Echogenicity: Thin and echogenic. Parenchymal thickness: Normal. Collecting System: No hydronephrosi s. Stone: None. Cyst/Mass: None. Left Kidney: Size: 8 cm (in length). Echogenicity: Thin and echogenic. Parenchymal thickness: Normal. Collecting System: No hydronephrosi s. Stone: None. Cyst/Mass: None. Vessels: Aorta: Visualized portions are norm al. Inferior Vena Cava: Visualized port ions are normal. Main Portal Vein: 1.3 cm, normal in size with hepatopetal flow. Free Fluid: No ascites or pleural effusion. IMPRESSION IMPRESSION: 1. Heterogenous/coarsened echotexture w ith increased echogenicity of the liver is suggestive of hepatocellula r dysfunction in the setting of hepatitis C with concurrent hepatic stea tosis. No focal hepatic lesions. 2. Bilateral atrophic, echogenic kidney s is consistent with medical renal disease. 3. Hyperechoic lesions adjacent to the gallbladder wall are nonspecific and may represent small polyps and/or st ones. No acute cholecystitis. If the report is "FINALIZED" it indicate s that the attending/staff radiologist has reviewed the images and agrees with the resident's interpretation. Dictated By: Anup Cash, 09/23/2020 8:2 0 AM I have reviewed the study and agree with the findings in this report. Signed By: Sharath Guallpa MD, 09/25/2020 7:14 PM Performing Organization Address City/State/ZIP Code Phon e Number SMS CBC/Diff (08/12/2020 9:07 AM MACHINE OPERATOR FARMWORKER)Only the most recent of4 resultswithin the time period is included. WBC 4.2 (L) 4.5 - 12.0 [facility] K/uL [facility] RBC 3.61 (L) 4.60 - 6.20 [facility] M/uL [facility] Hemoglobin 11.8 (L)Comment: 14.0 - 18.0 [facility] Discrepency from g/dL LABORATORY previous results notified - please repeat for confirmation Hematocrit 37.0 (L) 40.0 - 54.0 [facility] % [facility] MCV 102.5 (H) 82.0 - 92.0 [facility] fL [facility] MCH 32.7 (H) 27.0 - 31.0 [facility] pg [facility] MCHC 31.9 (L) 32.0 - 36.0 [facility] g/dL [facility] RDW 50.6 (H) 35.1 - 43.9 [facility] fL [facility] Platelet 114 (L) 150 - 400 [facility] K/uL [facility] Mean Platelet 9.1 (L) 9.4 - 12.4 [facility] Volume fL [facility] Percent NRBC 0.0 % [facility] Neutrophil 49.8 34.0 - 67.9 [facility] % [facility] Lymphs 32.6 21.8 - 50.0 [facility] % [facility] Monocytes 13.9 (H) 5.3 - 12.0 % [facility] Eos 2.6 0.8 - 5.0 % [facility] Basos 0.9 0.2 - 1.2 % [facility] Immature 0.2 0.0 - 0.5 % [facility] Granulocytes LAB[facility]ORY Neutrophils 2.10 1.78 - 5.36 [facility] (Absolute) K/uL LAB[facility]ORY Lymphs (Absolute) 1.38 1.32 - 3.57 [facility] K/uL [facility] Monocytes(Absolute) 0.59 0.30 - 0.82 [facility] K/uL [facility] Eos (Absolute) 0.11 0.04 - 0.54 [facility] K/uL [facility] Baso (Absolute) 0.04 0.01 - 0.08 [facility] K/uL [facility] Immature Grans 0.01 0.00 - 0.03 [facility] (Abs) K/uL [facility] Absolute NRBC 0.00 K/uL [facility] Specimen Blood - Arm, right Performing Organization Address City/State/ZIP Code Phon e Number [facility] [address] [place] [address] Comprehensive Metabolic Panel (08/12/2020 9:07 AM MACHINE OPERATOR FARMWORK[employer])Only the most recent of4 resultswithin the time period is included. Sodium 144 136 - 145 [facility] mmol/L Potassium 5.1 3.5 - 5.1 [facility] mmol/L Chloride 96 (L) 98 - 107 mmol/L [facility] CO2 32 (H) 21 - 31 mmol/L [facility] Glucose 90 70 - 110 mg/dL [facility] Calcium 10.1 8.6 - 10.3 [facility] mg/dL Urea Nitrogen 26.0 (H) 7.0 - 25.0 [facility] mg/dL Creatinine 4.8 (H) 0.7 - 1.3 mg/dL [facility] Alkaline Phosphatase 124 (H) 34 - 104 U/L [facility] ALT 38 7 - 52 U/L [facility] AST 40 (H) 13 - 39 U/L [facility] Bilirubin, Total 0.7 0.2 - 1.2 mg/dL [facility] Total Protein 8.9 (H) 6.0 - 8.3 g/dL [facility] eGFR If Africn Am 15 (L) >=90 [facility] mL/min/1.73 m2 Albumin 4.2 4.2 - 5.5 g/dL [facility] Anion Gap 16 5 - 16 mmol/L [facility] Specimen Blood - Arm, right Performing Organization Address City/State/ZIP Code Phon e Number [facility] [address] [place] [address] HCV RNA Quantitative, PCR (08/12/2020 9:07 AM MACHINE OPERATOR FARMWORKER)Only the most recent of2 resultswithin the time period is included. HCV RNA Quant, PCR Detected (A) Not detected [facility] IU/mL [facility] HCV RNA QUANT, PCR 280,315 (H) <=0 IU/mL [facility] Specimen Blood - Arm, right Narrative Performed At This test utilizes FDA cleared ERICH AmpliPrep/ERICH T aqMan HCV [facility] test, v2.0 from [employer] which all ows quantitation of viral loads between 15 copies/mL and 1 0,000,000 of plasma. When the result is positive but <15 copies/ mL of HCV RNA, the test will be reported as detected but less th an 15 copies/mL". The [employer]ICH AmpliPrep/ [employer]ICH TaqMan HCV test , v2.0 is not intended for use as a screening test for the prese nce of HCV RNA in blood or as a diagnostic test to confirm the pr esence of HCV infection. This test is intended for use as an aid in the management of patients with HCV infection. Performing Organization Address [facility] e Number [facility] [address] [place] [address] CD4/CD8 Ratio Grp (08/12/2020 9:07 AM MACHINE OPERATOR FARMWORKER)Only the most recent of4 results within the time period is included. Pathologist Sig nature Lymphocyte Abs 1,386 % [facility] CD4 Absolute 513 431-1,623 cells/uL [facility] CD8 Absolute 444 170-1,078 cells/uL [facility] CD4/CD8 Ratio 1.16 0.86 - 2.05 ratio [facility] WBC 4.2 (L) 4.5 - 12.0 K/uL [facility] Lymphs 33.0 21.8 - 50.0 % [facility] CD4% 37.0 25.0 - 56.0 % [facility] CD8% 32.0 14.2 - 35.8 % [facility] Specimen Blood - Arm, right Performing Organization Address City/[facility] Phon e Number [facility] [address] [place] [address] Syphilis Monitor for Treatment (08/12/2020 9:07 AM MACHINE OPERATOR FARMWORKER) Pathologist Sig nature RPR Non-reactive Non-reactive [facility] Specimen Blood - Arm, right Performing Organization Address City/[facility] Phon e Number [facility] [address] [place] [address] PT/INR (08/12/2020 9:07 AM MACHINE OPERATOR FARMWORKER)Only the most recent of3 resultswithin the time period is included. PT 24.8 (H) 11.7 - 14.2 [facility] INR 2.3 [facility] Comment: ranges LABORATORY 2.0 - 3.0 for moderate intensity anticoagulation 2.5 - 3.5 for high intensity anticoagulation Specimen Blood - Arm, right Performing Organization Address [facility] Phon e Number [facility] [address] [place] [address] HIV-1 RNA (08/12/2020 9:07 AM MACHINE OPERATOR FARMWORKER)Only the most recent of4 resultswithin the time period is included. HIV-1 RNA Detection Detected (A) Not detected [facility] HIV-1 RNA Copies 53 (H) <=0 copies/mL [facility] HIV-1 RNA Log10 1.73 (H) <=0.00 Log10 [facility] Specimen Blood - Arm, right Narrative Performed At This test utilizes FDA cleared ERICH AmpliPrep/ERICH T aqMan HIV-1 [facility] test 2.0 from [employer] which allow s quantitation of viral loads between 20 and 10,000,000 copies/mL of plasma. When the result is positive but less than 2 0 copies/mL of HIV-1 RNA, the test result will be reported as dete cted but less than 20 copies/mL". The [employer] AmpliPrep/ [employer]ICH Ta qManHIV-1 test, version 2.0 is not intended for use as a screeni ng test for the presence of HIV-1 RNA in blood or a diagnostic ariel t to confirm the presence of HIV infection. This test is in tended for use as an aid in the management of patients with HIV-1 infection. Performing Organization Address [facility] Phon e Number [facility] [address] [place] [address] [phone] DIABETIC FOOT EXAM (04/08/2020 10:40 AM CDT) Narrative Performed At Gurinder Chand MD 04/08/2020 1:1 8 PM Diabetic Foot Exam was performed at 2019 9:45 AM. Right foot sensation is normal, right foot pulses are reduced, ri ght foot appearance is normal. Left foot sensation is normal, left ryan t pulses are reduced, left foot appearance is normal. Hemoglobin A1C (03/25/2020 9:20 AM CDT)Only the most recent of2 resultswithin the time period is included. Pathologist Sig nature Hemoglobin A1c 5.1 4.3 - 6.1 % [facility] Estimated Average 100 70 - 110 mg/dL [facility] Glucose Specimen Blood Performing Organization Address [facility] Phon e Number [facility] [address] [place] [address] [phone] Lipid Profile (03/25/2020 9:20 AM CDT)Only the most recent of2 resultswithin the time period is included. Cholesterol 137.0 <=200.0 mg/dL [facility] Triglyceride 196 (H) <150 mg/dL [facility] HDL 34.0 See Reference [facility] Range Narrative. LABORATORY mg/dL LDL 64 <100 mg/dL [facility] Comment: LAB[facility] Optimal: < 100.0 mg/dL Near Optimal: 120-129 mg/dL Borderline: 130-159 mg/dL High: 160-189 mg/dL Very High: >=190 mg/dL Patient Fasting? Yes [facility] Specimen Blood Performing Organization Address [facility] Phon e Number [facility] [address] [place] [address] [phone] RBC Morphology (12/25/2019 8:26 AM CDT) Pathologist Sig nature Hypochromia 2+ (A) None seen [facility] Specimen Blood Performing Organization Address [facility] Phon e Number [facility] [address] [place], [place] [phone] BNP [B-Type Natriuretic Peptide] (12/25/2019 8:26 AM CDT)Only the most recent of2 resultswithin the time period is included. Pathologist Sig nature B Natriuretic Peptide 1,062 (H) <=100 pg/mL [facility] (BNP) Specimen Blood Performing Organization Address [facility] Phon e Number [facility] [address] [place] [address] Hepatitis C Virus (HCV) Genotyping, Nonreflex (12/25/2019 8:26 AM CDT) Hepatitis C 1a [facility] Genotype Please note: Comment [facility] Comment: This test was developed and its performance characteri stics determined by [facility]. It has not been cleared or approved by [facility] U.S. Food and Drug Administration. The FDA has determined that such clearance or approval is not necessary. This test is used for clinical purposes. It should not be regarded as investigational or for research. Specimen Blood Narrative Performed At Performed at: 01 - [facility] [address] [place], [place] [id number] 361 Cover Machine Operator: Stacia Nugent MD, Phone: [phone] Performing Organization Address [facility] Phon e Number [facility] [address] [place] [address] Syphilis Screen for Infection (11/04/2019 8:16 AM MACHINE OPERATOR FARMWORKER) RPR Non-reactive Non-reactive [facility] TPA Equivocal Negative, Equivocal [facility] Final Report Positive (A) Negative [facility] Specimen Blood Performing Organization Address [facility]/ZIP [facility] Phon e Number [facility] [address] [place] [address] TP-PA (11/04/2019 8:16 AM MACHINE OPERATOR FARMWORKER) Pathologist [facility] TP-PA Reactive (A) Non-Reactive [facility] Specimen Blood Performing Organization Address [facility] Phon e Number [facility] [address] [place] [address] [phone] after 10/22/2019 Insurance Payer Benefit Plan / Subscriber ID Effective Dates Phone Addre ss Type Group MEDICARE MEDICARE PART A [id number] 2010-Present [phone] [address] [place] [phone] [id number]
--- OUTSIDE RECORDS SUMMARY | 2020-10-22 16:34 | XMS REPORT | Clinical Summary ---
:1955 Author Organization [facility] Address [address] [place] [address] Care Team Providers Name Role Phone WisamEdenilson belcherlain Unavailable Pcp, No MD Primary Care Provider Unavailable Allergies Active Allergy [...] S) 8.6-50 mg per tablet mouth nightly. 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, without long-term current use of insulin (HCC) after 10/22/2019 Family History Medical History Relation Name Comments [...] 03/25/2020, 12/25/2019, 12/17/2018 Implants Implanted Type Area Order Takers Supervisor Device Shelf Model / Identifier Expiration Serial / Date Lot Sys Atriclip Exclsn Flx 40mm [id number] - Sn/A Cardiovascular N/A: ATRICURE 07/03/2020 [id number] / Implanted: Qty: 1 on 01/10/2018 by Tasneem Araujo MD at [facility] Heart N/A / [id number] Description:ATRICURE ATRICLIP FLEX Cath Dlys Trialysis Pwr 30cm [id number] - [id number] Catheter Left: CR BARD:ACCESS 03/01/2019 [id number] / Implanted: Qty: 1 on 01/10/2018 by Tasneem Araujo MD at [facility] Dialysis Long Groin SYS / Term [id number] Valve Mitrl [facility] Std Mstr 27mm [id number] - [id number] Valves Heart [facility] 12/27/2021 [id number] / Implanted: Qty: 1 on 01/10/2018 by Tasneem Araujo MD at [facility] MED:CARDIAC SURG [id number] / N/A Stringer For Femoral Neck System- Depuysynthes Left: Hip DePuy 06/01/2029 REF [id number] / Implanted: Qty: 1 on 02/28/2020 by Sukumar Grimes MD at [facility] Orthopaedics / [id number] 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 Lenght Left: Hip [employer] 06/01/2029 REF [id number] / Implanted: Qty: 1 on 02/28/2020 by Sukumar Grimes MD at [facility] / [id number] Femoral Neck System Plate 2 Hole Left: Hip [employer] 09/01/2029 REF [id number] / Implanted: Qty: 1 on 02/28/2020 by Sukumar Grimes MD at [facility] / [id number] 5.0mm Ti Locking Scr Slf-Tpng W/T25 Stardrive 38mm Lef t: Hip [employer] 08/01/2029 REF [id number] / Implanted: Qty: 1 on 02/28/2020 by Gudelia edwards, Sukumar Hines MD at [facility] / [id number] 5.0mm Ti Locking Scr Slf Tpng W/T25 Stardrive 38mm Lef t: Hip [employer] 07/02/2029 REF [id number] / Implanted: Qty: 1 on 02/28/2020 by Sukumar Grimes MD at [facility] / [id number] Procedures Procedure Name Priority Date/Time Associated Comments [...] 382 ms QTC Calculation(Bazett) 457 ms R Erie 50 degrees T Erie 73 degrees Undetermined rhythm Nonspecific ST abnormality [...] are i n the results section. SARS-COV2/RT-PCR ([facility] Routine 02/27/2020 1:52 AM Results [...] n the results section. after 10/22/2019 Results EKG-SCANNED (04/26/2020 1:01 PM CDT) Narrative [...] 25.1 (H) 11.9 - 14.2 seconds [facility] INR 2.34 <=5.90 [facility] PTT 38.7 (H) 22.5 - 36.0 seconds [facility] Specimen Blood Narrative Performed At Effective 01/28/2019: PT Reference Range [facility] Change New: 11.9-14.2 Previous: 11.7-14.7 RECOMMENDED COUMADIN/WARFARIN INR THERAPY RANGES STANDARD DOSE: 2.0-3.0 Includes: PROPHYLAXIS for venous thrombosis, systemic embolization; TREATMENT for venous thrombosis and/or pulmonary embolus. HIGH RISK: Target INR is 2.5-3.5 for patients wiht mechanical heart valves. Performing Organization Address City/State/Zipcode Phone Number [facility] [address] [place] [address] CENTER CBC with platelet count + automated diff (04/21/2020 10:30 PM CDT)Only the most recent of7 resultswithin the time period is included. Pathologist Sig nature WBC 6.2 3.5 - 10.5 [facility] K/L [facility] RBC 2.92 (L) 4.63 - 6.08 [facility] M/L [facility] Hemoglobin 9.3 (L) 13.7 - 17.5 [facility] GM/DL [facility] Hematocrit 29.5 (L) 40.1 - 51.0 % [facility] MCV 101.0 (H) 79.0 - 92.2 fL [facility] MCH 31.8 25.7 - 32.2 pg [facility] MCHC 31.5 (L) 32.3 - 36.5 [facility] GM/DL [facility] RDW 13.3 11.6 - 14.4 % [facility] Platelets 126 (L) 150 - 450 K/CU [facility] MM [facility] MPV 9.0 (L) 9.4 - 12.4 fL [facility] nRBC 0 0 - 0 /100 WBC [facility] % Neutros 65 % [facility] % Lymphs 20 % [facility] % Monos 13 % [facility] % Eos 2 % [facility] % Baso 1 % [facility] # Neutros 4.02 1.78 - 5.38 [facility] # Lymphs 1.23 (L) 1.32 - 3.57 [facility] # Monos 0.82 0.30 - 0.82 [facility] # Eos 0.12 0.04 - 0.54 [facility] # Baso 0.03 0.01 - 0.08 [facility] Immature 0 0 - 1 % [facility] Granulocytes-Relativ [facility] e CENTER Specimen Blood Performing Organization Address City/State/Zipcode Phone Number [facility] [address] [place] [address] CENTER Troponin I (04/21/2020 10:30 PM CDT) Pathologist Sig nature Troponin I 0.04 (H) 0.00 - 0.03 ng/mL [facility] Specimen Blood Narrative Performed At Troponin I (TnI) levels must be interpreted [facility] in the context of [...] acidosis, acute neurological disease, and persistent tachyarrhythmia. Distribution Warehouse Manager ID - PIAYA L Performing Organization Address City/State/Zipcode Phone Number [address] [address] CENTER B-type Natriuretic Factor (BNP) (04/21/2020 10:30 PM CDT) Pathologist Sig nature BNP 1,507 (H) 0 - 100 pg/mL [facility] Specimen Blood Narrative Performed At Distribution Warehouse Manager ID - PIAYA L [facility] ICAL CENTER Performing Organization Address City/[facility]/Zipcode Phone Number [address] [address] [place] Basic Metabolic Panel (04/21/2020 10:30 PM CDT)Only the most recent of7 results within the time period is included. Sodium 137 136 - 145 meq/L [facility] Potassium 4.2 3.5 - 5.1 meq/L [facility] Chloride 94 (L) 98 - 107 meq/L [facility] CO2 34 (H) 22 - 29 meq/L [facility] BUN 21 7 - 21 mg/dL [facility] Creatinine 4.95 (H) 0.57 - 1.25 [facility] mg/dL [facility] Glucose 126 (H) 70 - 105 mg/dL [facility] Calcium 9.4 8.4 - 10.2 [facility] mg/dL [facility] EGFR 14Comment: ESTIMATED mL/min/1.73 sq [facility] GFR IS NOT m [facility] CREATININE CLEARANCE IN PREDICTING GLOMERULAR FILTRATION RATE. ESTIMATED GFR IS NOT APPLICABLE FOR DIALYSIS PATIENTS. Specimen Blood Narrative Performed At Distribution Warehouse Manager ID - PIAYA L [facility] Performing Organization Address City/State/Zipcode Phone Number [facility] [address] [place] [address] CENTER XR chest 2 views (04/21/2020 10:05 PM CDT) Specimen Narrative Performed At FINAL REPORT [employer] INDICATION: SHORTNESS OF BREATH COMPARISON: 01/04/2019 TECHNIQUE: [...] 382 ms QTC Calculation(Bazett) 457 ms R Erie 50 degrees T Erie 73 degrees Undetermined rhythm Nonspecific ST abnormality Abnormal ECG When compared with ECG of 16-DEC-2018 13 :58, Current undetermined rhythm precludes rh ythm comparison, needs review Confirmed by MD CORRAL MAJID ([id number]) on 8:10:24 PM Procedure Note Interface, External Ris In - 2020 8:10 PM CDT Ventricular Rate 86 BPM Atrial Rate 88 BPM QRS Duration 76 ms Q-T Interval 382 ms QTC Calculation(Bazett) 457 ms R Erie 50 degrees T Erie 73 degrees Undetermined rhythm Nonspecific ST abnormality Abnormal ECG When compared with ECG of 16-DEC-2018 13 :58, Current undetermined rhythm precludes rh ythm comparison, needs review Confirmed by MD CORRAL MAJID ( 190) on 2020 8:10:24 PM Performing Organization Address City/[facility] Phone Number GE MUSE RHYTHM STRIP - SCAN (03/07/2020 11:30 AM CDT) Narrative Performed At This result has an attachment that is no t available. POC-Glucose meter (03/03/2020 3:17 PM CDT)Only the most recent of18 results within the time period is included. POC-Glucose Meter 133 (H)Comment: 70 - 110 mg/dL [facility] : TESTED AT [address], [address]: Distribution Warehouse Manager/Technic chris ID = [id number] for Phyllis Samson Specimen Blood Performing Organization Address City/[facility] Hospitalcode Phone Number [address] [address] CENTER HEMODIALYSIS INPATIENT (03/03/2020 12:23 [...] 67.8 (H) 22.5 - 36.0 seconds [facility] Specimen Blood Performing Organization Address City/[facility] Phone Number [address] [address] CENTER Daily Prothrombin time/INR while on warfarin (03/03/2020 4:20 AM CDT)Only the most recent of5 resultswithin the time period is included. Pathologist Sig nature Protime 32.1 (H) 11.9 - 14.2 seconds [facility] INR 3.2 <=5.9 [facility] Specimen Blood Narrative Performed At Effective 01/28/2019: PT Reference Range [facility] Change New: 11.9-14.2 Previous: 11.7-14.7 RECOMMENDED COUMADIN/WARFARIN INR THERAPY RANGES STANDARD DOSE: 2.0-3.0 Includes: PROPHYLAXIS for venous thrombosis, systemic embolization; TREATMENT for venous thrombosis and/or pulmonary embolus. HIGH RISK: Target INR is 2.5-3.5 for patients wiht mechanical heart valves. While on warfarin. Performing Organization Address City/[facility] Phone Number [address] [address] CENTER HEMODIALYSIS INPATIENT (03/01/2020 12:40 [...] 40.0 - 160.[address] [facility] ug/dL [facility] TIBC 219 (L) 250 - 450 ug/dL [facility] Iron % Saturation 57 (H) 20 - 55 % [facility] Specimen Blood Narrative Performed At Distribution Warehouse Manager ID - JOEL W [facility] Performing Organization Address [facility] Phone Number [address] [address] CENTER Ferritin (02/27/2020 3:19 PM CDT) Pathologist Sig nature Ferritin 5,182.19 (H) 5.00 - 275.[address] [facility] ng/mL [facility] Specimen Blood Narrative Performed At Distribution Warehouse Manager ID - JOEL W [facility] Performing Organization Address City/[facility] Phone Number [address] [address] CENTER Platelet count (02/27/2020 12:30 PM CDT) Pathologist Sig nature Platelets 116 (L) 150 - 450 K/CU MM [facility] Specimen Blood Narrative Performed At Distribution Warehouse Manager ID - [id number] [facility] No clot Performing Organization Address [facility] Hospital[facility] Phone Number [address] [address] CENTER Hepatitis B surface antigen (02/27/2020 10:18 AM CDT) Pathologist Sig nature HBsAg Screen Nonreactive Nonreactive [facility] Specimen Blood Narrative Performed At Specimen is considered negative for HBsAg. [facility] Performing Organization Address City/State/Zipcode Phone Number [facility] [address], [place] [address] CENTER Antibody identification (02/27/2020 8:56 AM CDT) Pathologist Sig nature ANTIBODY ID UNID IgG [facility] [place] (BEAKER) Antibody Consult SIGNED OUTComment: An [place] IgG antibody of undetermined specificity is detected, transfuse crossmatch compatible RBCs.Electronic Signature: Cale Shirley M.D. Specimen Performing Organization Address City/State/Zipcode Phone Number [facility] [place] XR wrist 2 [...] Report Verified Date/Time: 02/27/2020 09:19:08 Reading Location: [facility] B1 C013Y CT Body R eading [...] Verified Date/Time: 02/27/2020 0 9:19:08 Reading Location: [facility] B1 C013Y CT Body R eading Room Performing Organization Address City/State/Zipcode Phone Number [facility] Potassium (02/27/2020 7:53 AM CDT) Pathologist Sig nature Potassium 5.0 3.5 - 5.1 meq/L [facility] Specimen Blood Narrative Performed At Distribution Warehouse Manager ID - PIAYA L [facility] Performing Organization Address City/State/Zipcode Phone Number [facility] [address] [place] [address] CENTER XR hip 2 views left (02/27/2020 [...] Report Verified Date/Time: 02/27/2020 07:23:52 Reading Location: [address] Procedure Note Interface, External Ris In - [...] Verified Date/Time: 02/27/2020 0 7:23:52 Reading Location: [facility] C013[facility] Room Performing Organization Address City/State/Zipcode Phone Number GE [facility]IS XR pelvis 1 or 2 views (02/27/2020 6:56 AM CDT) Specimen Narrative Performed At FINAL REPORT [facility] RAD, PELVIS, 1 OR 2 VIEWS, RAD, [...] Report Verified Date/Time: 02/27/2020 07:23:52 Reading Location: [facility] C013[facility] Room Procedure Note Interface, External Ris In [...] Verified Date/Time: 02/27/2020 0 7:23:52 Reading Location: [facility] C013V [facility] Room Performing Organization Address City/State/Zipcode Phone Number [facility] SARS-CoV2/RT-PCR (Asymptomatic ONLY) (02/27/2020 1:52 AM CDT) SARS-COV2/RT-PCR Negative Not Detected, [facility] SARS-COV-2 [facility] PERFORMING LAB [facility] Specimen Other - Nasopharyngeal wall structure (b liam structure) Narrative Performed At Negative result for this test determines that [facility] SARS-CoV-2 RNA was not present [...] the Act. Fact Sheet for Healthcare Providers: https://www.COFCO.com/sites/default/files/pro duct/documents/Fact_Sheet_HC_Providers_Lyra_SA RS-CoV-2.pdf Fact Sheet for Healthcare Patients: https://www.COFCO.com/sites/default/files/pro duct/documents/Fact_Sheet_Patients_Lyra_SARS-C oV-2.pdf Performing Laboratory: [address] [place] [address] Performing Organization Address City/State/Zipcode Phone Number [address] [address] CENTER Type and screen, automated (02/27/2020 1:23 AM CDT) ABO/RH AUTOMATED AB POSITIVE [facility] (BEAKER) [facility] Ab Scrn POSITIVEComment: [facility] ECHO 2 [facility] Specimen Blood Performing Organization Address [facility] Phone Number [address] [address] Phosphorus (02/27/2020 1:23 AM CDT) Pathologist Sig nature Phosphorus 7.3 (H) 2.3 - 4.7 mg/dL [facility] Specimen Blood Narrative Performed At Distribution Warehouse Manager ID - AKSHAT L [facility] Performing Organization Address [facility] Phone Number [address] [address] CENTER Magnesium (02/27/2020 1:23 AM CDT) Pathologist Sig nature Magnesium 1.9 1.6 - 2.6 mg/dL [facility] Specimen Blood Narrative Performed At Distribution Warehouse Manager ID - PIJESSE L [facility] Performing Organization Address [facility] Phone Number [address] [address] CENTER Comprehensive metabolic panel (02/27/2020 1:23 AM CDT) Protein, Total 9.6 (H) 6.0 - 8.3 [facility] gm/dL [facility] Albumin 4.3 3.5 - 5.0 [facility] g/dL [facility] Alkaline 85 40 - 150 U/L [facility] Phosphatase [facility] Total Bilirubin 1.1 0.2 - 1.2 [facility] mg/dL [facility] Sodium 132 (L) 136 - 145 [facility] meq/L [facility] Potassium 5.9 (H) 3.5 - 5.1 [facility] meq/L [facility] Chloride 91 (L) 98 - 107 [facility] meq/L [facility] CO2 24 22 - 29 meq/L [facility] BUN 58 (H) 7 - 21 mg/dL [facility] Creatinine 8.80 (H) 0.57 - 1.25 [facility] mg/dL [facility] Glucose 99 70 - 105 [facility] mg/dL [facility] Calcium 9.2 8.4 - 10.2 [facility] mg/dL [facility] AST 44 (H) 5 - 34 U/L [facility] ALT 36 6 - 55 U/L [facility] EGFR 7Comment: mL/min/1.73 [facility] ESTIMATED GFR IS sq [facility] CREATININE CLEARANCE IN PREDICTING GLOMERULAR FILTRATION RATE. ESTIMATED GFR IS NOT APPLICABLE FOR DIALYSIS PATIENTS. Specimen Blood Narrative Performed At Distribution Warehouse Manager ID - PIAYA L [facility] Performing Organization Address City/State/Zipcode Phone Number [facility] [address] [place] [address] CENTER after 10/22/2019 Advance Directives For more information, please contact: [phone] Type Date Recorded Patient Secretary Bookkeeper Explanati on Advance Directives 02/05/2018 10:00 AM Code Status Date Activated Date Inactivated Comments [...]
--- OUTSIDE RECORDS SUMMARY | 2020-10-22 16:34 | XMS REPORT | Clinical Summary ---
:1955 Author Organization [facility] Address [address] [place] [address] Care Team Providers Name Role Phone Asked, [...] 10 mg/mL (two) times a solution day. ipratropium-albute Take 3 mL by 0 Active roL (DUO-NEB) nebulization 2 0 0.5-2.5 mg/3 mL (two) times a nebulizer day. metFORMIN Take 1,000 mg by 0 06/28/20 [...] Dis charge) after dialysis. 3 dialysis days. dapsone 100 MG Take 1 tablet 0 07/29/20 E xpired tablet (100 mg total) 0 20 by mouth daily for 30 days. docusate sodium Take 1 capsule 60 capsule 0 07/28/20 (COLACE) 100 MG (100 mg total) 0 20 capsule by mouth 2 (two) times a day for 30 days. epoetin jennifer-epbx Infuse 2 mL 24 mL 0 07/29/20 (RETACRIT) 4,000 (8,000 Units 0 20 unit/mL solution total) into a injection venous catheter 3 (three) times a week for 30 days. gabapentin Take 1 capsule 30 capsule 0 07/28/20 Exp ired (NEURONTIN) 300 mg (300 mg total) 0 20 capsule by mouth nightly for 30 days. levoFLOXacin Take 1 tablet 0 07/05/20 Exp ired (LEVAQUIN) 250 MG (250 mg total) 0 20 tablet by mouth every other day for 5 days. NIFEdipine XL Take 1 tablet 30 tablet 0 10/28/202 11/27/20 Ex pired (PROCARDIA XL) 30 (30 mg total) by 0 20 MG 24 hr tablet mouth daily for 30 days. polyethylene Take 17 g by 60 packet 0 07/28/20 Expi red glycol (MIRALAX) mouth 2 (two) 0 20 17 gram packet times a day for 30 days. sennosides-docusat Take 1 tablet by 60 tablet 0 07/04 e sodium mouth 2 (two) 0 20 (SENOKOT-S) 8.6-50 times a day for mg per tablet 30 days. simethicone Chew 1 tablet 0 07/28/20 Expi red (MYLICON) 80 MG (80 mg total) 0 20 chewable tablet every 6 (six) hours as needed for flatulence for up to 30 days. metFORMIN Take 0.5 tablets 30 tablet 0 07/28/20 Exp ired (GLUCOPHAGE) 1,000 (500 mg total) 0 20 mg tablet by mouth 2 (two) times a day with meals for 30 days. Active Problems Problem Noted Date Respiratory [...] Encounters Date Type Specialty Care Team Description 09/01/2020 Telephone Cardiothoracic Mary Constantino, Surgery MA 08/15/2020 Telephone Cardiothoracic Mary Constantino, Surgery MA 06/29/2020 Orders Only General Internal Rain Live RN 06/21/2020 Telephone Cardiovascular Ada Herrera RN 06/17/2020 Anesthesia Event Cardiothoracic Bety, Surgery MD Yao Calloway Stephanie Jo, CRNA 06/17/2020 Surgery Cardiothoracic Shanita Miller MD REVISION OF LEFT Surgery UPPER EXTREMITY ARTERIOVENOUS G RAFT WITH FISTULOGRA M 06/14/2020 Anesthesia Event Vascular Surgery Adriel Centeno CRNA 06/10/2020 Orders Only Intensive Care Darrell Murray PA 06/02/2020 Surgery Cardiothoracic Uri Nicole MD LEFT ROBO TIC Surgery ASSISTED THORACOSCOPIC T OTAL LEFT LUNG DECORTICATION, AND CRYOABLATION TO INTERCOSTAL NER VES 06/02/2020 Anesthesia Event Cardiothoracic Julieta Sevilla Surgery MD Shelton Patel Ridele E 06/01/2020 Anesthesia Event Procedural Cardiology Glory Zaragoza MD Lauritano, Angela Campobasso 05/09/2020 [facility] General Internal Artvaliz, Megan Gibbons s of breath (Primary Dx); - Encounter Medicine MD Angela Pneumonia of both lower lobes due to inf ectious organism (HCC); 06/28/2020 Joseph Rivera Hyperkalemia ; MD Noe ESRD (end stage renal disease) on dialys is ([facility]); Juju Boland MD Pleural effusio n, bilateral; Empyema ([facility]); Preop pulmonary /respiratory exam; Atelectasis ; Pleural effusio n, not elsewhere classified; ESRD (end stage renal disease) ([facility]); S/P thoracotomy (Left) 12/04/2019 Travel 11/11/2019 Travel after 10/22/2019 Immunizations Name Administration Dates Next Due FLUCELVAX QUAD PF 05/24/2020 Surgical History Surgery Date Site/Laterality Comments CARDIAC SURGERY LUNG SURGERY ROBOTIC ASSISTED 06/02/2020 Left Procedure: LEFT ROBOTIC THORACOSCOPIC LUNG ASSISTED THOR ACOSCOPIC TOTAL DECORTICATION LEFT LUNG DECORT ICATION, AND CRYOABLATION TO INTERCOSTAL NERVES; Surgeon : Uri Nicole MD; Locati on: [facility]; Serv ice: Thoracic; Later ality: Left; BRONCHOSCOPY 06/02/2020 N/A Procedure: FLEXI BLE BRONCHOSCOPY; S urgeon: Uri Nicole MD ; Location: [facility]; Service: Thoracic; Later ality: N/A; REVISION, ARTERIOVENOUS 06/17/2020 Arm Upper/Left Procedur e: REVISION OF LEFT GRAFT, WITH ANGIOGRAPHY UPPER EX TREMITY ARTERIOVENOUS GRAFT WITH FISTU LOGRAM; Surgeon: Abby Miller MD; Location: [facility]; Service: Vascula r; Laterality: Left ; Medical [...] file Not on file Not on file Last Filed Vital Signs [...] 06/02/2020 12:50 PM CDT Plan of Treatment Health Maintenance Due Date Last Done Comments DIABETIC FOOT EXAM 04/24/1967 COVID-19 VACCINE (1 of 2) 04/24/1973 COLONOSCOPY SCREENING 04/24/2007 SHINGLES VACCINES (#1) 04/24/2007 [...] procedure are i n the results section. PA AN PERIPHERAL BLOCK Routine 06/17/2020 10:15 R [...] results section. AFB CULTURE Routine 06/06/2020 12:30 Results for this PM CDT procedure are i n the results section. POC GLUCOSE Routine 06/06/2020 11:58 Results for [...] procedure a re in the results section. PA INSERT NON-TUNNEL CV Routine 06/02/2020 10:36 Empyema [...] AFB CULTURE Timed 06/02/2020 4:41 Pleural effusion, Result s for this PM CDT not elsewhere procedure are in classified the results section. AFB CULTURE Timed 06/02/2020 4:40 Pleural effusion, Result s for this PM CDT not elsewhere procedure are in classified the results section. SURGICAL PATHOLOGY Routine 06/02/2020 3:42 Resul ts [...] procedure are in classified the results section. PA AN ELECTIVE Routine 06/02/2020 2:46 Results f [...] procedure are i n the results section. PA CRITICAL CARE, E/M Routine 05/10/2020 1:13 Re [...] 05/09/2020 6:00 Res ults for this PANEL WITH COVID-19 PM CDT procedur e are in the results section. COVID-19 QUALITATIVE PCR STAT [...] n the results section. after 10/22/2019 Results POC glucose (06/28/2020 6:17 PM CDT)Only the most recent of131 resultswithin the time period is included. Pathologist [facility] POC glucose 139 (H) 65 - 99 mg/dL [facility] Comment: HOSPITAL Pierogi Maker Name: Jesus Ugarte Device ID: [id number] Chartable: [facility] Notified RN Specimen Blood Performing Organization Address City/[facility] Phon e Number [facility] DEPARTMENT OF PATHOLOGY AND [address] [place] [phone] Estimated GFR (06/28/2020 3:08 AM CDT)Only the most recent of47 resultswithin the time period is included. [facility] Estimated GFR 21 (A) mL/min/1.73 [facility] Comment: HOSPITAL Catergory Units Interpretation G1 [...] in 2014. Specimen Plasma Performing Organization Address City/[facility] Phon e Number [facility] DEPARTMENT OF PATHOLOGY AND [address] [place] [address] [address] Basic metabolic panel (06/28/2020 3:08 AM CDT)Only the most recent of45 results within the time period is included. [facility] nature Sodium 130 (L) 135 - 148 mEq/L [facility] Potassium 4.1 3.5 - 5.0 mEq/L [facility] Chloride 93 (L) 98 - 112 mEq/L [facility] CO2 27 24 - 31 mEq/L [facility] Anion gap 10@ANIO 7 - 15 mEq/L [facility] BUN 28 (H) 8 - 23 mg/dL [facility] Creatinine 3.34 (H) 0.70 - 1.20 mg/dL [facility] Glucose 104 (H) 65 - 99 mg/dL [facility] Calcium 9.8 8.8 - 10.2 mg/dL [facility] Specimen Plasma Performing Organization Address City/[facility] Phon e Number [facility] DEPARTMENT OF PATHOLOGY AND [address] [place] [address] [phone] [address] Prothrombin time with INR (06/28/2020 2:49 AM CDT)Only the most recent of43 resultswithin the time period is included. Pathologist [facility] Prothrombin time 27.5 (H) 11.5 - 14.5 [facility] INR 2.5 [facility] Comment: [facility] International Normalized Ratio (INR) is a [facility] monitoring tool for patients who are stable on oral anticoagulant therapy. An INR of 2.0-3.0 is suggested for deep vein thrombosis/pulmonary embolism. Specimen Blood Performing Organization Address [facility] Phon e Number [facility] DEPARTMENT OF PATHOLOGY AND [address] [place] [address] [phone] [address] CBC with platelet and differential (06/28/2020 2:49 AM CDT)Only the most recent of36 resultswithin the time period is included. Pathologist [facility] WBC 7.14 4.50 - 11.00 [facility] k/uL [facility] RBC 2.52 (L) 4.40 - 6.00 [facility] HGB 8.2 (L) 14.0 - 18.0 [facility]/dL [facility] HCT 26.4 (L) 41.0 - 51.0 % [facility] MCV 104.8 (H) 82.0 - 100.0 [facility] MCH 32.5 27.0 - 34.0 pg [facility] MCHC 31.1 31.0 - 37.0 [facility] RDW - SD 68.6 (H) 37.0 - 55.0 fL [facility] MPV 8.4 (L) 8.8 - 13.2 fL [facility] Platelet count 192 150 - 400 k/uL [facility] Nucleated RBC 0.00 /100 WBC [facility] Neutrophils 66.7 39.0 - 69.0 % [facility] Lymphocytes 17.1 (L) 25.0 - 45.0 % [facility] Monocytes 12.7 (H) 0.0 - 10.0 % [facility] Eosinophils 2.1 0.0 - 5.0 % [facility] Basophils 0.7 0.0 - 1.0 % [facility] Immature granulocytes 0.7Comment: 0.0 - 1.0 % [facility] "Immature HOSPITAL granulocytes" (promyelocytes , myelocytes, metamyelocytes ) Specimen Plasma Performing Organization Address City/[facility] Phon e Number [facility] DEPARTMENT OF PATHOLOGY AND [address] [place] [address] [phone] [address] Potassium level (06/27/2020 3:44 PM CDT)Only the most recent of3 resultswithin the time period is included. Pathologist Sig nature Potassium 4.3 3.5 - 5.0 mEq/L [facility] L Specimen Plasma Performing Organization Address [facility] Phon e Number [facility] DEPARTMENT OF PATHOLOGY AND [address] [place] [address] [phone] [address] [address] Chest Wo Contrast (06/27/2020 1:20 PM [...] superimposed pneumonia cannot be exclude d. . [facility]-[id number] Procedure Note Hm Interface, Radiology Results Incoming [...] superimposed pneumonia cannot be exclude d. . [facility]-[id number] Performing Organization Address City/State/ZIP Code Phon e Number [facility] [address] [place] [address] Smear review (06/27/2020 6:14 AM CDT)Only the most recent of12 resultswithin the time period is included. Pathologist Sig nature Platelet slide review Cayla adequate [facility] Anisocytosis Moderate [facility] Polychromasia Moderate [facility] Ovalocytes Moderate [facility] Specimen Plasma Narrative Performed At K results called to and read back by MILTON [facility] DEPARTM ENT OF PATHOLOGY AND GENOMIC PADAIN/WT19(name/location) MEDICINE at 06/27/2020 07:42 (date/time) by PR1. Performing Organization Address City/[facility]/ZIP Code Phon e Number [facility] DEPARTMENT OF PATHOLOGY AND [address] [place] [address] COVID-19 qualitative PCR (06/27/2020 6:00 AM CDT)Only the most recent of4 resultswithin the time period is included. Interpretation Negative results do not prec lude 2019-nCoV infection and should not be used as the sole basis for treatment or other patient management decisions. Negative results must be combined with clinical observations, patient history, and epidemiological [facility] information. [facility] COVID-19 qualitative Not-Detected Not-Detecte [facility] PCR result d [facility] COVID-19 qualitative See link below for [facility] PCR PDF Lab [facility] ReportComment: Case HOSPITAL Number: [id number] Specimen Nasal swab Performing Organization Address [facility]/ZIP Code Phon e Number [facility] DEPARTMENT OF PATHOLOGY AND [address] [place] [address] XR Chest 1 Vw Portable (06/26/2020 10:56 [...] the chest are unchanged. [facility] Procedure Note Interface, Radiology Results Incoming - 06/27/2020 1:26 [...] chest are unchanged. [facility] Performing Organization Address [facility] Phon e Number [facility] [address] [place] [phone] Phosphorus level (06/26/2020 6:20 AM CDT)Only the most recent of28 results within the time period is included. Pathologist Sig nature Phosphorus 2.6 2.4 - 4.5 mg/dL [facility] Specimen Plasma Performing Organization Address [facility] Phon e Number [facility] DEPARTMENT OF PATHOLOGY AND [address] [place] [address] [phone] [address] Magnesium level (06/26/2020 6:20 AM CDT)Only the most recent of30 resultswithin the time period is included. Pathologist Sig nature Magnesium 2.0 1.6 - 2.4 mg/dL [facility] Specimen Plasma Performing Organization Address [facility] Phon e Number [facility] DEPARTMENT OF PATHOLOGY AND [address] [place] [address] [phone] [address] Partial thromboplastin time, activated (06/26/2020 4:40 AM CDT)Only the most recent of65 resultswithin the time period is included. PTT 132.2 (HH) 23.0 - 36.0 [facility] Comment: sec HOSPITAL PTT therapeutic range for unfractionated heparin is 61.0-112.0 seconds which corresponds to Anti-Xa 0.3-0.7 U/ml. PTT_results called to and read back by Brenda LORENZO/WT19 (name/location) at 06/26/2020 07:18 ___ (date/time) by FREDY_. Specimen Blood Performing Organization Address [facility] Phon e Number [facility] DEPARTMENT OF PATHOLOGY AND [address] [place] [address] [phone] [address] Transfuse RBC (06/24/2020 4:26 PM CDT)Only the most recent of5 resultswithin the time period is included.Prepare RBC, 1 Units (06/24/2020 10:30 AM CDT)Only the most recent of6 resultswithin the time period is included. Product name Red Blood Cells [facility] -1, Leukored [facility] Unit number [id number] [facility] Product code [id number] [facility] Dispense status Transfused [facility] Blood expiration date [id number] [facility] Blood type code 8400 [facility] Blood type AB POSITIVE [facility] Compatibility Compatible [facility] Specimen Plasma Performing Organization Address [facility] Phon e Number [facility] DEPARTMENT OF PATHOLOGY AND [address] [place], [place] [phone] [address] [address] Type and screen (06/24/2020 10:30 AM CDT)Only the most recent of6 resultswithin the time period is included. Pathologist Sig nature ABO grouping AB [facility] Rh type POS [facility] Antibody screen (gel) NEG [facility] Specimen Plasma Performing Organization Address [facility] Phon e Number [facility] DEPARTMENT OF PATHOLOGY AND [address] [place], [place] [phone] [address] [address] CBC hemogram (06/24/2020 2:45 AM CDT)Only the most recent of11 resultswithin the time period is included. Pathologist Sig nature WBC 5.81 4.50 - 11.00 k/uL [facility] RBC 2.19 (L) 4.40 - 6.00 m/uL [facility] HGB 7.1 (L) 14.0 - 18.0 g/dL [facility] HCT 23.4 (L) 41.0 - 51.0 % [facility] MCV 106.8 (H) 82.0 - 100.0 fL [facility] MCH 32.4 27.0 - 34.0 pg [facility] MCHC 30.3 (L) 31.0 - 37.0 g/dL [facility] RDW - SD 72.3 (H) 37.0 - 55.0 fL [facility] MPV 8.4 (L) 8.8 - 13.2 fL [facility] Platelet count 145 (L) 150 - 400 k/uL [facility] Nucleated RBC 0.00 /100 WBC [facility] Specimen Plasma Performing Organization Address City/[facility] Phon e Number [facility] DEPARTMENT OF PATHOLOGY AND [address] [place] [address] [phone] [address] Parathyroid hormone (06/24/2020 2:45 AM CDT) Pathologist Sig nature PTH 53 15 - 65 pg/mL [facility] Specimen Blood Performing Organization Address [facility] Phon e Number [facility] DEPARTMENT OF PATHOLOGY AND [address] [place] [phone] [facility] [address] [place] [address] Spirometry, diffusion (06/21/2020 3:26 PM CDT) Pathologist [...] is no t available. Performing Organization Address City/[facility] Phon e Number [facility] [address] [place] [address] Manual differential (06/21/2020 4:15 AM CDT)Only the most recent of5 results within the time period is included. Manual differential PERFORMED [facility] Neutrophils 71.0 (H) 39.0 - 69.0 % [facility] Lymphocytes 9.0 (L) 25.0 - 45.0 % [facility] Monocytes 13.0 (H) 0.0 - 10.0 % [facility] Eosinophils 4.0 0.0 - 5.0 % [facility] Basophils 0.0 0.0 - 1.0 % [facility] Metamyelocytes 0 % [facility] Myelocytes 3 % [facility] Promyelocytes 0 % [facility] Platelet slide review Cayla adequate [facility] Anisocytosis Moderate [facility] Polychromasia Moderate [facility] Specimen Performing Organization Address [facility] Phon e Number [facility] DEPARTMENT OF PATHOLOGY AND [address] [place], [place] [address] GENOMIC MEDICINE [facility] [address] [place] [address] Peripheral Block (06/17/2020 10:15 AM CDT) Narrative Performed At Julieta Sevilla MD 020 10:35 AM Peripheral Block Date/Time: 06/17/2020 10:04 [...] City/State/ZIP Code Phon e Number [facility] [address] [place] [address] Troponin (06/14/2020 6:17 PM CDT)Only the most recent of7 resultswithin the time period is included. Troponin 0.034 0.000 - 0.040 [facility] Comment: ng/mL HOSPITAL In patients suspected of [...] 0.020 ng/mL Specimen Blood Performing Organization Address City/State/ZIP Code Phon e Number [facility] DEPARTMENT OF PATHOLOGY AND [address] [place] [phone] GENOMIC MEDICINE [address] [address] ECG 12 lead (06/14/2020 3:46 AM CDT)Only the most recent of7 resultswithin the time period is included. Pathologist Sig nature Ventricular rate 103 [facility] Atrial rate 103 [facility] PA interval 192 [facility] QRSD interval 78 [facility] QT interval 346 [facility] QTC interval 453 [facility] P axis 1 64 [facility] QRS axis 1 -6 [facility] T wave axis 81 [facility] EKG impression Sinus [facility] tachycardia-Nonspecific T wave abnormality--Electronic ally Signed By Claribel Solorzano ([id number]) on 06/15/2020 11:46:36 AM Specimen Narrative Performed At This result has an attachment that is no t available. Performing Organization Address City/State/ZIP Code Phon e Number [facility] MUSE [address] [place] [address] CT Renal Stone Protocol (06/13/2020 9:14 PM [...] findings as noted above. [id number] Procedure Note Hm Interface, Radiology Results Incoming - 06/13/2020 9:56 PM CDT EXAMINATION: CT [...] City/State/ZIP Code Phon e Number [facility] [address] [place] [address] XR Abdomen 1 Vw Portable (06/13/2020 2:00 [...] City/State/ZIP Code Phon e Number [facility] [address] [facility]. [address] duplex hemodialysis avg avf access (06/10/2020 4:14 PM CDT) Specimen Narrative Performed At [facility] AV Carmine t - Fistula Report [address] [facility] [address], [place] [address] Pat.Name: SALVATORE LUGO.ID: [id number] .Date: 06/10/2020 Refer.MD: JUJU BOLAND MD Exam Time: 2:34:00 PM Study Type:A V Graft - Fistula Height: 67in Weight: 143lb BSA: 1.75 m2 Ag e: 1955,65Y Sex: MALE Sonogr phr: Perez Vi, RVT Pat. Stat.:Inpatient Room: [address] Tape Vol: , CPT - 4: 07458 Echo Event ID:[id number] Order ID: [id number] Reason for Study:Patient has bleeding fi stula. [...] Ultrasound Laboratory AV Graft - Fistula Report [address] [address] Pat.Name: SALVATORE ULGO I D: [id number] St.Date: 06/10/2020 Refer .MD: JUJU BOLAND MD Exam Time: 2:34:00 PM Study Type:AV Graft - Fistula Height: 67in Weigh t: 143lb BSA: 1.75 m2 Age: 804/24/1955,65Y Sex: MALE Sonog rphr: Perez Vi, RVT Pat. Stat.:Inpatient Room: [id number] Tape Vol: HV, CPT - 4: [id number] Echo Event ID:[id number] Order ID: [id number] Reason for Study:Patient has bleeding fi stula. [...] August Blankenship MD, RPVI Performing Organization Address City/[facility]/ZIP Code Phon e Number CUPID [address] [place] [address] Total iron binding capacity (06/10/2020 3:45 AM CDT) Iron level 107 59 - 158 [facility] ug/dL HOSPITAL Iron binding SEE COMMENT 200 - 400 [facility] capacity Comment: ug/dL HOSPITAL Unable to calculate due to too low analyte concentration. % Saturation SEE 20.0 - 40.0 % [facility] COMMENTComment: HOSPITAL Unable to calculate due to low analyte concentration. Specimen Blood Performing Organization Address City/[facility]/ZIP Code Phon e Number [facility] DEPARTMENT OF PATHOLOGY AND [address] [place] [address] [phone] [facility] [address] [address] Ferritin level (06/10/2020 3:45 AM CDT) Pathologist [facility] Ferritin level 4,002 (H) 30 - 400 ng/mL [facility] Specimen Blood Performing Organization Address City/[facility]/ZIP [facility] Phon e Number [facility] DEPARTMENT OF PATHOLOGY AND [address] [place] [address] [phone] [address] Hemoglobin & hematocrit (06/09/2020 2:54 PM CDT)Only the most recent of5 resultswithin the time period is included. Pathologist [facility] HGB 8.0 (L) 14.0 - 18.0 g/dL [facility] HCT 25.7 (L) 41.0 - 51.0 % [facility] Specimen Blood Performing Organization Address City/[facility]/ZIP Code Phon e Number [facility] DEPARTMENT OF PATHOLOGY AND [address] [place] [address] [phone] [address] [place] Modified Barium Swallow (06/09/2020 11:39 AM [...] to Speech Pathology report for further details. [facility]-[id number] Procedure Note Hm Interface, Radiology Results Incoming [...] to Speech Pathology report for further details. [facility]-[id number] Performing Organization Address [facility] Phon e Number RADIANT [address] [place] [phone] Ionized calcium (06/09/2020 3:02 AM CDT)Only the most recent of3 resultswithin the time period is included. Pathologist Sig lawrence pH 7.43 [facility] Ionized calcium 1.20 1.11 - 1.32 mmol/L [facility] Specimen Blood Performing Organization Address City/[facility]/ZIP Code Phon e Number [facility] DEPARTMENT OF PATHOLOGY AND [address] [place] [address] [phone] [address] Hepatitis B surface antigen (06/08/2020 10:47 AM CDT)Only the most recent of2 resultswithin the time period is included. Pathologist Sig lawrence Hepatitis B surface Non-reactive Non-reactive [facility] Specimen Blood Performing Organization Address City/[facility]/ZIP Code Phon e Number [facility] DEPARTMENT OF PATHOLOGY AND [address] [place] [address] [phone] [address] Arterial blood gas (06/07/2020 1:35 AM CDT)Only the most recent of8 results within the time period is included. Pathologist Sig nature pH, arterial 7.49 (H) 7.35 - 7.45 [facility] pCO2, arterial 39 35 - 45 mmHg [facility] pO2, arterial 219 (H) 80 - 90 mmHg [facility] Bicarbonate, 29.0 (H) 21.0 - 28.0 [facility] mmol/L HOSPITAL Base excess, 6 (H) -2 - 2 mEq/L [facility] O2 saturation, 99 95 - 100 % [facility] Specimen Blood Performing Organization Address [facility] Phon e Number [facility] DEPARTMENT OF PATHOLOGY AND [address] [place] [address] [address] Bronchoscopy (06/06/2020 1:42 PM CDT) Narrative Performed At Jam Hoskins MD 06/06/2020 1:46 PM Bronchoscopy Date/Time: 06/06/2020 1:43 PM Performed by: Jam Hoskins MD Authorized by: Juju Boland MD Consent: Consent obtained: Verbal Consent given by: Patient Alternatives discussed: No treatmen t [place] protocol: Procedure explained and questions ans wered [...] culture Post-procedure details: Patient tolerance of procedure: Nando ng tolerated the procedure well with no immediate complications Attending physician: Dr. Sierra Comments: Scant mucus retrieved for cultures. Airways diffus miky erythematous AFB culture (06/06/2020 12:30 PM CDT)Only the most recent of3 resultswithin the time period is included. AFB culture No growth after 6 weeks of incubation. BETI PEREZ [facility] isolate Comment: HOSPITAL Specimen Information Specimen Source: Bronchial alveolar lavage Specimen Site: RLL (Right Lower Lobe) Specimen Bronchial alveolar lavage - RLL (right l ower lobe) Performing Organization Address City/[facility] Phon e Number [facility] DEPARTMENT OF PATHOLOGY AND [address] [place] [phone] Fungus culture (06/06/2020 12:30 PM CDT)Only the most recent of4 resultswithin the time period is included. Fungus culture No growth after 4 weeks of incubation. [facility] isolate Comment: HOSPITAL Specimen Information Specimen Source: Bronchial alveolar lavage Specimen Site: RLL (Right Lower Lobe) Specimen Bronchial alveolar lavage - RLL (right l ower lobe) Performing Organization Address City/[facility] Phon e Number [facility] DEPARTMENT OF PATHOLOGY AND [address] [place] [address] [address] Respiratory culture (06/06/2020 11:30 AM CDT) Respiratory culture No normal oral pete isolated. (A) [facility] isolate Comment: [facility] Specimen Information HOSPITAL Specimen Source: Bronchial alveolar lavage Specimen Site: RLL (Right Lower Lobe) Respiratory culture Klebsiella pneumoniae [facility] isolate Occasional [facility] susceptibility to follow HOSPITAL (A) Specimen Bronchial [...] <=1 mcg/mL : Susceptible Performing Organization Address [facility] Phon e Number [facility] DEPARTMENT OF PATHOLOGY AND [address] [place] [phone] Fungus smear (06/06/2020 11:30 AM CDT)Only the most recent of4 resultswithin the time period is included. Pathologist Sig nature Fungus smear No fungi observed. [facility] Comment: HOSPITAL Specimen Information Specimen Source: Bronchial alveolar lavage Specimen Site: RLL (Right Lower Lobe) Specimen Bronchial alveolar lavage - RLL (right l ower lobe) Performing Organization Address [facility] Phon e Number [facility] DEPARTMENT OF PATHOLOGY AND [address] [place] [phone] Gram stain (06/06/2020 11:30 AM CDT)Only the most recent of6 resultswithin the time period is included. Gram stain isolate Moderate WBC's [facility] No organisms seen HOSPITAL Comment: Specimen Information Specimen Source: Bronchial alveolar lavage Specimen Site: RLL (Right Lower Lobe) Specimen Bronchial alveolar lavage - RLL (right l ower lobe) Performing Organization Address [facility] Phon e Number [facility] DEPARTMENT OF PATHOLOGY AND [address] [place] [address] [phone] [address] AFB stain (06/06/2020 11:30 AM CDT)Only the most recent of3 resultswithin the time period is included. Pathologist Sig nature AFB stain No acid fast bacilli (AFB) seen. [facility] Comment: HOSPITAL Specimen Information Specimen Source: Bronchial alveolar lavage Specimen Site: RLL (Right Lower Lobe) Specimen Bronchial alveolar lavage - RLL (right l ower lobe) Performing Organization Address [facility] Phon e Number [facility] DEPARTMENT OF PATHOLOGY AND [address] [place] [address] [phone] [address] Anti Xa, unfractionated (06/05/2020 9:25 AM CDT)Only the most recent of14 resultswithin the time period is included. Anti Xa, 0.43Comment: 0.30 - 0.70 [facility] The[facility] Range: U/mL [facility] 0.30 - 0.70 U/mL HOSPITAL Specimen Blood Performing Organization Address [facility] Phon e Number [facility] DEPARTMENT OF PATHOLOGY AND [address] [place] [address] [phone] [address] Lactic acid level (06/04/2020 3:23 AM CDT) Pathologist Sig nature Lactic acid 0.8 0.5 - 2.2 mmol/L [facility] Specimen Blood Performing Organization Address [facility] Phon e Number [facility] DEPARTMENT OF PATHOLOGY AND [address] [place] [address] [phone] [address] Bilirubin direct (06/03/2020 2:48 AM CDT) Pathologist Sig nature Bilirubin direct 0.7 (H) 0.0 - 0.3 mg/dL [facility] Specimen Performing Organization Address [facility] Phon e Number [facility] DEPARTMENT OF PATHOLOGY AND [address] [place] [address] [phone] [address] Comprehensive metabolic panel (06/03/2020 2:48 AM CDT)Only the most recent of2 resultswithin the time period is included. Sodium 141 135 - 148 [facility] mEq/L [facility] Potassium 4.7 3.5 - 5.0 [facility] mEq/L [facility] Chloride 102 98 - 112 [facility] mEq/L [facility] CO2 25 24 - 31 mEq/L [facility] Anion gap 14@ANIO 7 - 15 mEq/L [facility] BUN 14 8 - 23 mg/dL [facility] Creatinine 3.38 (H) 0.70 - 1.20 [facility] mg/dL [facility] Glucose 129 (H) 65 - 99 mg/dL [facility] Calcium 9.5 8.8 - 10.2 [facility] mg/dL [facility] Protein 7.6 6.3 - 8.3 [facility] Comment: g/dL HOSPITAL - [place] 4.6-7.0 g/dL 1 week 4.4-7.6 g/dL 7 months-1year 5.1-7.3 g/dL 1-2 years 5.6-7.5 g/dL >3 years 6.0-8.0 g/dL 18-150 6.3-8.3 g/dL Albumin 2.9 (L) 3.5 - 5.0 [facility] g/dL [facility] A/G ratio 0.6 (L) 0.7 - 3.8 [facility] Alkaline phosphatase 50 40 - 129 U/L [facility] AST 33 10 - 50 U/L [facility] ALT 8 5 - 50 U/L [facility] Total bilirubin 1.0 0.0 - 1.2 [facility] mg/dL [facility] Specimen Blood Performing Organization Address City/State/ZIP Code Phon e Number [facility] DEPARTMENT OF PATHOLOGY AND [address] [place] [phone] [facility] [address] [address] [place] Insertion (06/02/2020 10:36 PM CDT) Narrative Performed At Tasneem Rainey ACNP 06/02/2020 10: 37 PM [place] Insertion Performed by: Tasneem Rainey ACNP Authorized by: Tasneem Rainey ACNP Consent: Consent obtained: Emergent situatio n [place] protocol: Patient identity confirmed: Provide d demographic [...] nature Ionized calcium, 1.19 1.11 - 1.32 [facility] arterial mmol/L HOSPITAL Specimen Blood Performing Organization Address [facility] Phon e Number [facility] DEPARTMENT OF PATHOLOGY AND [address] [place] [address] [phone] [address] Fibrinogen (06/02/2020 9:33 PM CDT)Only the most recent of3 resultswithin the time period is included. Pathologist Sig nature Fibrinogen 669 (H) 200 - 450 mg/dL [facility] L Specimen Blood Performing Organization Address City/[facility]/ZIP [facility] Phon e Number [facility] DEPARTMENT OF PATHOLOGY AND [address] [place] [address] [phone] [address] Sodium level, syringe (06/02/2020 8:28 PM CDT)Only the most recent of3 results within the time period is included. Pathologist Sig nature Sodium, syringe 139 135 - 148 mEq/L [facility] Specimen Blood Performing Organization Address [facility] Phon e Number [facility] DEPARTMENT OF PATHOLOGY AND [address] [place] [address] [phone] [address] Potassium, syringe (06/02/2020 8:28 PM CDT)Only the most recent of3 results within the time period is included. Pathologist Sig nature Potassium, syringe 4.3 3.5 - 5.0 mEq/L [facility] Specimen Blood Performing Organization Address City/[facility] Phon e Number [facility] DEPARTMENT OF PATHOLOGY AND [address] [place] [address] [phone] [address] Lactic acid, syringe (06/02/2020 8:28 PM CDT)Only the most recent of2 results within the time period is included. Pathologist Sig nature Lactic acid, syringe 0.7 0.5 - 2.2 mmol/L [facility] Specimen Blood Performing Organization Address [facility] Phon e Number [facility] DEPARTMENT OF PATHOLOGY AND [address] [place] [phone] [place] [address] Hemoglobin, syringe (06/02/2020 8:28 PM CDT)Only the most recent of3 results within the time period is included. Pathologist Sig nature Hemoglobin, syringe 10.0 (L) 14.0 - 18.0 g/dL [facility] Specimen Blood Performing Organization Address City/[facility] Phon e Number [facility] DEPARTMENT OF PATHOLOGY AND [address] [place] [address] [phone] [address] Glucose level, syringe (06/02/2020 8:28 PM CDT)Only the most recent of3 results within the time period is included. Pathologist Sig nature Glucose, syringe 106 (H) 65 - 99 mg/dL [facility] Specimen Blood Performing Organization Address City/[facility] Phon e Number [facility] DEPARTMENT OF PATHOLOGY AND [address] [place] [address] [phone] [address] Arterial blood gas, corrected (06/02/2020 8:28 PM CDT)Only the most recent of3 resultswithin the time period is included. Pathologist Sig nature pH, arterial 7.44 7.35 - 7.45 [facility] pCO2, arterial 42 35 - 45 mmHg [facility] pO2, arterial 264 (H) 80 - 90 mmHg [facility] Temperature, Celsius 37.6 Degrees C [facility] O2 saturation, 97 95 - 100 % [facility] arterial HOSPITAL pH, arterial 7.43 [facility] HOSPITAL pCO2, arterial 44 mmHg [facility] HOSPITAL pO2, arterial 266 mmHg [facility] Base excess, arterial 4 (H) -2 - 2 mEq/L [facility] Specimen Blood Performing Organization Address City/[facility] Phon e Number [facility] DEPARTMENT OF PATHOLOGY AND [address] [place] [address] [phone] [address] Platelet count (06/02/2020 6:55 PM CDT) Pathologist [facility] Platelet count 202 150 - 400 k/[facility] Specimen Performing Organization Address City/[facility] Phon e Number [facility] DEPARTMENT OF PATHOLOGY AND [address] [place] [address] [phone] [address] Rotational thromboelastometry, [facility] (06/02/2020 6:23 PM CDT) Pathologist [facility] A20, FIBTE 41 (H) 7 - 24 mm [facility] Maximum clot firmness, 43 (H) 7 - 24 mm [facility] Specimen Narrative Performed At PT,FIBR results called to and read back by [facility] DEPARTM ENT OF PATHOLOGY AND GENOMIC /WTOR MEDICINE at 06/02/2020 18:52 by MR. Performing Organization Address City/[facility] Phon e Number [facility] DEPARTMENT OF PATHOLOGY AND [address] [place] [address] [phone] [address] Rotational thromboelastometry, HEPT (06/02/2020 6:23 PM CDT) Clotting time, 175 sec [facility] Clot formation 63 sec [facility] Alpha angle, HEPT 78 deg [facility] A20, HEPTM 72 mm [facility]PITAL Maximum clot 73 mm [facility] firmness, HEPTM HOSPITAL Maximum lysis, 3Comment: Test % [facility] HEPTM stopped early; this HOSPITAL is an estimated value. LI30, HEPTM 100 % [facility] Comment: HOSPITAL HEPTEM should be compared to INTEM. INTEM-HEPTEM results allow assessment of hemostasis without the overlaying heparin effect. Specimen Narrative Performed At PT,FIBR results called to and read back by [facility] ENT OF PATHOLOGY AND GENOMIC /TYLOR MEDICINE at 06/02/2020 18:52 by MR. Performing Organization Address City/[facility] Phon e Number [facility] DEPARTMENT OF PATHOLOGY AND [address] [place], [place] [phone] [address] [address] Rotational thromboelastometry, EXTEM (06/02/2020 6:23 PM CDT) Clotting time, 99 (H) 43 - 82 sec [facility]OSPITAL Clot formation 49 48 - 127 sec [facility] time, EXT HOSPITAL Alpha angle, EXTEM 80 65 - 80 deg [facility] A20, EXTEM 70 50 - 70 mm [facility] Maximum clot 72 (H) 52 - 70 mm [facility] firmness, EXTEM HOSPITAL Maximum lysis, 2Comment: Test % [facility] EXTEM stopped early; HOSPITAL this is an estimated value. LI30, EXTEM 100 % [facility] Specimen Narrative Performed At PT,FIBR results called to and read back by [facility] ENT OF PATHOLOGY AND GENOMIC /TYLOR MEDICINE at 06/02/2020 18:52 by MR. Performing Organization Address City/[facility] Phon e Number [facility] DEPARTMENT OF PATHOLOGY AND [address] [place] [phone] [facility] [address] [place] [address] Rotational thromboelastometry, INTEM (06/02/2020 6:23 PM CDT) Clotting time, 178 122 - 208 sec [facility]TE [facility]OSPITAL Clot formation 76 45 - 110 sec [facility] time, INTEM HOSPITAL Alpha angle, INTEM 75 70 - 81 deg [facility] A20, INTEM 72 51 - 72 mm [facility] Maximum clot 73 (H) 51 - 72 mm [facility] firmness, INTEM HOSPITAL Maximum lysis, 2Comment: Test % [facility] INTE stopped early; HOSPITAL this is an estimated value. LI30, INTEM 100 % [facility] Specimen Narrative Performed At ,[facility] results called to and read back by [facility] DEPARTM ENT OF PATHOLOGY AND GENOMIC /[email or web address] MEDICINE at 06/02/2020 18:52 by MR. Performing Organization Address City/[facility] Phon e Number [facility] DEPARTMENT OF PATHOLOGY AND [address] [place], [place] [phone] [address] [address] Surgical pathology request (06/02/2020 3:42 PM CDT) [facility] DEPARTMENT OF PATHOLOGY AND GENOMIC MEDICINE Surgical pathology See link below [facility] DEPARTMENT OF report for PDF Lab PATHOLOGY AND Report GENOMIC MEDICINE Result status This is Final [facility] DEPARTMENT OF Report for PATHOLOGY AND [id number] GENOMIC MEDICINE Specimen Performing Organization Address [facility] Phon e Number [facility] DEPARTMENT OF PATHOLOGY AND [address] [place], [place] [phone] 0 [facility] Aerobic culture (06/02/2020 3:41 PM CDT)Only the most recent of2 resultswithin the time period is included. Aerobic culture No growth after 3 days. [facility] IST isolate Comment: HOSPITAL Specimen Information Specimen Source: Pleural fluid Specimen Site: Lung: LEFT PLEURAL FLUID Specimen Pleural fluid - Lung Performing Organization Address [facility] Phon e Number [facility] DEPARTMENT OF PATHOLOGY AND [address] [place], [place] [phone] [address] [address] Anaerobic culture (06/02/2020 3:41 PM CDT)Only the most recent of3 results within the time period is included. Anaerobic culture No anaerobic organisms isolated. [facility] isolate Comment: HOSPITAL Specimen Information Specimen Source: Pleural fluid Specimen Site: Lung: LEFT PLEURAL FLUID Specimen Pleural fluid - Lung Performing Organization Address [facility] Phon e Number [facility] DEPARTMENT OF PATHOLOGY AND [address] [place] [address] [phone] [address] Tissue culture (06/02/2020 3:40 PM CDT) Tissue culture No growth after 3 days. [facility] isolate Comment: HOSPITAL Specimen Information Specimen Source: Tissue Specimen Site: Lung: LEFT PLEURAL RIND Specimen Tissue Performing Organization Address City/State/ZIP Code Phon e Number [facility] DEPARTMENT OF PATHOLOGY AND [address] [place], [place] [address] GENOMIC MEDICINE [facility] [address] [place] [address] Airway (06/02/2020 2:46 PM CDT) Narrative Performed At Harley Massey MD 2019 2:47 PM Airway Date/Time: 06/02/2020 2:46 PM Performed by: Harley Massey MD Authorized by: Becky Laird MD Location: [place] Urgency: Elective Difficult Airway: No Resident/TECHNICAL SALES DIRECTOR/AA: Yossi Massey am, MD Performed by: resident/TECHNICAL SALES DIRECTOR/AA Preoxygenated with 100% O2: Yes C-spine Precautions [...] PM End Time: 06/02/2020 2:44 PM Staff: Resident/TECHNICAL SALES DIRECTOR/AA: Harley Massey MD Performed by: Resident/TECHNICAL SALES DIRECTOR/AA Pre-procedure: patient identified, IV ch ecked, site [...] Cytology (non-gynecological) request (06/02/2020 9:52 AM CDT) [facility] DEPARTMENT OF PATHOLOGY AND GENOMIC MEDICINE Cytology See link below [facility] DEPARTMENT OF (non-gynecological) for PDF Lab PATHOLOGY AND report Report GENOMIC MEDICINE Result status This is Final [facility] DEPARTMENT OF Report for PATHOLOGY AND [id number] GENOMIC MEDICINE Specimen Performing Organization Address City/State/ZIP Code Phon e Number [facility] DEPARTMENT OF PATHOLOGY AND [address] [place], [place] [address] GENOMIC MEDICINE Hepatic function panel (06/02/2020 3:46 AM CDT) Albumin 2.8 (L) 3.5 - 5.0 [facility] g/dL [facility] Total bilirubin 1.0 0.0 - 1.2 [facility] mg/dL [facility] Bilirubin direct 0.5 (H) 0.0 - 0.3 [facility] mg/dL [facility] Alkaline phosphatase 63 40 - 129 U/L [facility] Protein 8.3 6.3 - 8.3 [facility] Comment: g/dL HOSPITAL - 4.6-7.0 g/dL 1 week 4.4-7.6 g/dL 7 months-1year 5.1-7.3 g/dL 1-2 years 5.6-7.5 g/dL >3 years 6.0-8.0 g/dL 18-150 6.3-8.3 g/dL ALT 9 5 - 50 U/L [facility] AST 29 10 - 50 U/L [facility] Specimen Blood Performing Organization Address City/State/ZIP Code Phon e Number [facility] DEPARTMENT OF PATHOLOGY AND [address] [place], [place] [address] GENOMIC MEDICINE [facility] [address] [place] [address] Echocardiogram transesophageal (06/01/2020 1:14 PM CDT) Specimen Narrative Performed At [facility] Transes ophageal Echo Report [address], [place], [place] [address] Pat.Name: SALVATORE LUGO Pat.ID: [id number] .Date: 06/01/2020 Exam Time: 11:38:00 AM Study Type:SEGUNDO Height: 67in Weight: 135lb BSA: 1.71 m2 Age: 804/24/1955,65Y Sex: MALE Sonogrphr: Clayton Carbajal MD Pat. Stat.:Innc kenyatta Study Status:Final Echo Event ID:[id number] Order ID: [id number] Reason for Study:Mitral Valve Mechanical Prosthetic Valve [...] " physiological" MR FINDINGS: SEGUNDO: The attending bread stacker performed the SEGUNDO procedure and was present [...] PM CDT Transesophageal Ec ho Report [address], [place], [place] [address] Pat.Name: SALVATORE LUGO Pat.I D: [id number] St.Date: 06/01/2020 Exam Time: 11:38:00 AM Study Type:SEGUNDO Heigh t: 67in Weight: 135lb BSA: 1.71 m2 Age: 804/24/1955,65Y Sex: MALE Sonogrphr: Clayton Carbajal MD Pat. Stat.:Inpatient Study Status:Final Echo Event ID:[id number] Order ID: [id number] Reason for Study:Mitral Valve Mechanical Prosthetic Valve [...] " physiological" MR FINDINGS: SEGUNDO: The attending bread stacker per formed the SEGUNDO procedure and was present for the entire dur ation. The patient was counseled and an informed [...] Per Anesthesia ASA C lass: 3 Physician: Ana Davila: Clayton Carbajal MD Pre SEGUNDO BP HR [...] Organization Address City/State/ZIP Code Phon e Number [facility] [address] [place] [address] Transthoracic Echocardiogram Complete, (w Contrast, Strain and 3D if needed) (05/29/2020 9:50 AM CDT) Specimen Narrative Performed At [facility] Echo cardiography Report [address] [facility], [place] [address] Pat.Name: SALVATORE LUGO.ID: [id number] .Date: 05/29/2020 Refer.MD: JUJU BOLAND MD Exam Time: 8:40:00 AM Study Type:R outine Echo Height: 67in Weight: 150lb BSA: 1.79 m2 Ag e: 1955,65Y Sex: MALE BP: 129/70 HR: 88 bpm Sonogr phr: Margarita Merchant RDCS Pat. Stat.:Inpatient Room: [facility] Study Status:Final Echo Event ID:[id number] Order ID: [id number] Reason for Study:Chest pain, cardiac petra ology [...] of 20 mmHg. MEASUREMENTS: 2D Parasternal [place] Ao An 1.9 cm LVPWd 0.9 cm [...] 2019 11:54 AM CDT Echocardiography Report [address] [place] [id number] Pat.Name: SALVATORE LUGO I D: [id number] .Date: 05/29/2020 Refer .MD: JUJU BOLAND MD Exam Time: 8:40:00 AM Study Type:Routine Echo Height: 67in Weigh t: 150lb BSA: 1.79 m2 Age: 804/24/1955,65Y Sex: MALE BP: 129/70 HR: 88 bpm Sonog rphr: Margarita Merchant SERGIO Pat. Stat.:Inpatient Room: M0429 Study Status:Final Echo Event ID:[id number] Order ID: [id number] Reason for Study:Chest pain, cardiac petra ology [...] of 20 mmHg. MEASUREMENTS: 2D Parasternal [place] Ao An 1.9 cm LVPW d 0.9 [...] AM Jody Bryson MD Performing Organization Address City/[facility]/ZIP Code Phon e Number [facility] [address] [place] [address] ECG Pre/Post Op (05/28/2020 10:05 PM CDT) Pathologist Sig nature Ventricular rate 82 HM MUSE QRSD interval 76 [facility] MUSE QT interval 346 [facility] MUSE QTC interval 404 [facility] QRS axis 1 86 HM MUSE T wave axis 79 [facility] EKG impression Normal sinus rhythm-ST [facility] MUSE elevation, consider early repolarization, pericarditis, or injury-Nonspecific ST abnormality-Abnormal ECG- Specimen Narrative Performed At This result has an attachment that is no t available. Performing Organization Address [facility] Phon e Number [facility] MUSE [address] [place] [address] B natriuretic peptide (05/28/2020 1:00 PM CDT)Only the most recent of2 results within the time period is included. Pathologist Sig nature BNP 882 (H) 0 - 100 pg/mL [facility] Specimen Blood Performing Organization Address [facility]/ZIP [facility] Phon e Number [facility] DEPARTMENT OF PATHOLOGY AND [address] [place] [phone] [address] Sputum culture (05/26/2020 5:45 PM CDT)Only the most recent of2 resultswithin the time period is included. Sputum culture Normal oral pete isolated. [facility] isolate Comment: HOSPITAL Specimen Information Specimen Source: Sputum Specimen Site: Expectorated Specimen Sputum - Expectorated Performing Organization Address [facility]/State/ZIP Code Phon e Number [facility] DEPARTMENT OF PATHOLOGY AND [address] [place], [place] [address] [facility] [address] [place] [address] Vancomycin level, random (05/17/2020 4:00 AM CDT)Only the most recent of3 resultswithin the time period is included. Pathologist Sig nature Vancomycin, random 18.5 ug/mL [facility] ITAL Specimen Serum Performing Organization Address City/State/ZIP Code Phon e Number [facility] DEPARTMENT OF PATHOLOGY AND [address] [place], [place] [address] [facility] [address] [place] [address] TPA/Dornase Administration (05/16/2020 12:19 PM CDT) Narrative Performed At Julieta Brock PA 05/16/2020 12:22 PM TPA/Dornase Administration Date/Time: 05/16/2020 10:40 AM Performed by: Julieta Brock PA Authorized by: Uri Nicole MD Consent: Consent obtained: Verbal Consent given by: Patient Risks discussed: Bleeding, incomple te drainage, infection and pain Alternatives discussed: No treatmen t [place] protocol: Procedure explained and questions ans wered [...] congestion is improved. 3. No acute osseous [id number] Procedure Note Interface, Radiology Results Incoming - 05/12/2020 5:14 [...] congestion is improved. 3. No acute osseous [id number] Performing Organization Address City/State/ZIP Code Phon e Number [facility] [address] [place] [address] US Insert Pleura Catheter (05/12/2020 4:45 PM CDT) Specimen Narrative Performed At [facility] Procedure: Ultrasound-guided left thoracostomy tube placement Performing [...] locally. Under direct ultrasound guidance a 5 Pakistani Yueh needl e was inserted into the left pleural space. The inner stylette was re moved and a guidewire advanced. Following serial dilatation over t he wire an 8 Pakistani locking pigtail catheter was plac ed. Approximately [...] thora costomy tube placement. [id number] Procedure Note Hm Interface, Radiology Results Incoming - 05/12/2020 5:10 [...] Under direct ultrasound guidance a 5 [facility] Yueh needle was inserted into the left pleural space. The inner stylette was removed and a guidewire advanced. Following serial dilatation over the wire an 8 Pakistani locking pigtail catheter was placed. Approximately 20 [...] thoracostomy tube placement. [id number] Performing Organization Address City/State/ZIP Code Phon e Number [facility] [address] [place] [address] Cell count and differential, body fluid (05/12/2020 4:30 PM CDT) Pathologist [facility] fluid type Thoracentesis [facility] Color, fluid Izard [facility] Appearance, fluid Hazy [facility] RBC, fluid 22,000 /CMM [facility] Nucleated cells, 104 /CMM [facility] Fluid mononuclear See Diff [facility] Neutrophils, fluid 2 % [facility] Lymphocytes, fluid 98 % [facility] Specimen Fluid Performing Organization Address [facility] Phon e Number [facility] DEPARTMENT OF PATHOLOGY AND [address] [place] [address] [phone] [address] Triglycerides, misc fluid (05/12/2020 4:30 PM CDT) Fluid type Thoracentesis [facility] Triglyceride, 50 mg/dL [facility] fluid Comment: HOSPITAL The reference interval(s) and other method performance specifications have not been established for this body fluid. The test results must be integrated into the clinical context for interpretation. This test has been modified from the manufacturers instructions. The performance characteristics were determined by [facility] in a manner consistent with CLIA requirements. This test has not been cleared or approved by the U.S. Food and Drug Administration. Specimen Fluid Performing Organization Address [facility] Phon e Number [facility] DEPARTMENT OF PATHOLOGY AND [address] [place] [address] [phone] [address] Protein, misc fluid (05/12/2020 4:30 PM CDT) [facility] Protein, fluid 3.7 g/dL [facility] Comment: HOSPITAL The reference interval(s) and other method performance specifications have not been established for this body fluid. The test results must be integrated into the clinical context for interpretation. This test has been modified from the manufacturers instructions. The performance characteristics were determined by [facility] in a manner consistent with CLIA requirements. This test has not been cleared or approved by the U.S. Food and Drug Administration. Specimen Fluid Performing Organization Address City/[facility] Phon e Number [facility] DEPARTMENT OF PATHOLOGY AND [address] [place] [address] [phone] [address] LDH, misc fluid (05/12/2020 4:30 PM CDT) Fluid type Thoracentesis [facility] LDH, fluid 201 U/L [facility] Comment: HOSPITAL The reference interval(s) and other method performance specifications have not been established for this body fluid. The test results must be integrated into the clinical context for interpretation. This test has been modified from the manufacturers instructions. The performance characteristics were determined by [facility] in a manner consistent with CLIA requirements. This test has not been cleared or approved by the U.S. Food and Drug Administration. Specimen Fluid Performing Organization Address City/[facility] Phon e Number [facility] DEPARTMENT OF PATHOLOGY AND [address] [place] [address] [phone] [address] Glucose level, misc fluid (05/12/2020 4:30 PM CDT) Fluid type Thoracentesis [facility] Glucose, fluid 39 mg/dL [facility] Comment: HOSPITAL The reference interval(s) and other method performance specifications have not been established for this body fluid. The test results must be integrated into the clinical context for interpretation. This test has been modified from the manufacturers instructions. The performance characteristics were determined by [facility] in a manner consistent with CLIA requirements. This test has not been cleared or approved by the U.S. Food and Drug Administration. Specimen Fluid Performing Organization Address [facility] Phon e Number [facility] DEPARTMENT OF PATHOLOGY AND [address] [place] [address] [phone] [address] Amylase level, misc fluid (05/12/2020 4:30 PM CDT) Fluid type Thoracentesis [facility] Amylase, fluid 44 U/L [facility] Comment: HOSPITAL The reference interval(s) and other method performance specifications have not been established for this body fluid. The test results must be integrated into the clinical context for interpretation. This test has been modified from the manufacturers instructions. The performance characteristics were determined by [facility] in a manner consistent with CLIA requirements. This test has not been cleared or approved by the U.S. Food and Drug Administration. Specimen Fluid Performing Organization Address City/[facility] Phon e Number [facility] DEPARTMENT OF PATHOLOGY AND [address] [place] [address] [phone] [address] Albumin, misc fluid (05/12/2020 4:30 PM CDT) Fluid type Thoracentesis [facility] Albumin, fluid 1.7 g/dL [facility] Comment: HOSPITAL The reference interval(s) and other method performance specifications have not been established for this body fluid. The test results must be integrated into the clinical context for interpretation. This test has been modified from the manufacturers instructions. The performance characteristics were determined by [facility] in a manner consistent with CLIA requirements. This test has not been cleared or approved by the U.S. Food and Drug Administration. Specimen Fluid Performing Organization Address [facility] Phon e Number [facility] DEPARTMENT OF PATHOLOGY AND [address] [place] [address] [address] pH, misc fluid (05/12/2020 4:30 PM CDT) Pathologist Sig nature Fluid type Thoracentesis [facility] pH, fluid 8.00Comment: Reference [facility] ranges are not HOSPITAL established for Miscellanous specimens. Specimen Fluid Performing Organization Address [facility] Phon e Number [facility] DEPARTMENT OF PATHOLOGY AND [address] [place], [place] [phone] CD 4/8 subset (05/10/2020 3:25 AM CDT) [facility] CD3% 57 57 - 85 % [facility] CD3 absolute count 276 (L) 544 - 2,501 ul [facility] CD4% 31 (L) 37 - 57 % [facility] CD4 absolute count 149 (L) 488 - 1,340 ul [facility] CD8% 26 13 - 40 % [facility] CD8 absolute count 126 (L) 136 - 937 ul [facility] CD4/CD8 ratio 1.2 0.8 - 2.9 [facility] CD 4/8 subset See link below [facility] for PDF Lab HOSPITAL ReportComment: Specimen Blood Performing Organization Address City/[facility] Phon e Number [facility] DEPARTMENT OF PATHOLOGY AND [address] [place], [place] [phone] [address] [place] [phone] [facility] CRITICAL CARE (05/10/2020 1:13 AM CDT) Narrative [...] Respiratory pathogen panel (05/09/2020 6:00 PM CDT) [facility] Adenovirus PCR Not Detected [facility] Comment: [facility] Specimen Information [facility] Specimen Source: Nares Specimen Site: Right Coronavirus HKU1 PCR Not Detected [facility] Coronavirus NL63 PCR Not Detected [facility] Coronavirus 229E PCR Not Detected [facility] Coronavirus OC43 PCR Not Detected [facility] Human metapneumovirus Not Detected [facility] Human Not Detected [facility] rhinovirus/enterovirus [facility] Influenza A PCR Not Detected [facility] Influenza A/H1 PCR Not Reported [facility] Influenza A/H3 PCR Not Reported [facility] Influenza A/H1-2009 PCR Not Reported [facility] Influenza B PCR Not Detected [facility] Parainfluenza virus 1 Not Detected [facility] Parainfluenza virus 2 Not Detected [facility] Parainfluenza virus 3 Not Detected [facility] Parainfluenza virus 4 Not Detected [facility] Respiratory syncytial Not Detected [facility] virus [facility] Bordetella pertussis Not Detected [facility] Bordetella Not Detected [facility] parapertussis PCR [facility] Chlamydia pneumoniae Not Detected [facility] Mycoplasma pneumoniae Not Detected [facility] Influenza A no sub type Not Reported [facility] Specimen Nares - Right Performing Organization Address City/[facility] Phon e Number [facility] DEPARTMENT OF PATHOLOGY AND [address] [place] [address] [phone] [address] Influenza antigen test, reflex negative to RPP (05/09/2020 6:00 PM CDT) Influenza antigen Negative for Influenza A/B antigen. [facility] Comment: HOSPITAL Specimen Information Specimen Source: Nares Specimen Site: Right Specimen Nares - Right Performing Organization Address City/[facility] Phon e Number [facility] DEPARTMENT OF PATHOLOGY AND [address] [place] [address] [phone] [address] Blood culture, aerobic & anaerobic (05/09/2020 6:00 PM CDT)Only the most recent of2 resultswithin the time period is included. Blood culture No growth after 5 days of incubation. [facility] isolate Comment: HOSPITAL Specimen Information Specimen Source: Blood Specimen Site: Hand, right Specimen Blood - Hand, right Performing Organization Address 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
--- OUTSIDE RECORDS SUMMARY | 2020-10-22 17:06 | XMS REPORT | Continuity of Care Document ---
:1955 Author Organization [facility] t Address [address] [place] [address] Care Team Providers Name Role Phone UNKNOWN, REFFERING Primary Care Physician Unavailable MELVIN SHER Attending Clinician Unavailable Gurinder Chand MD Attending Clinician RUPERTO Attending Clinician Unavailable Lashonda Ríos MD Attending Clinician Dougie BARNES Attending Clinician Unavailable Natasha QUIROS S Attending Clinician Unavailable Christie Live RN Attending Clinician Unavailable Angela Mcmahon MD Attending Clinician oNe Rivera MD Attending Clinician Wally PÉREZ Attending Clinician Sharon COMBS Attending Clinician Unavailable Bety PÉREZ, Bernadette Attending Clinician Mckenna Samayoa CRNA Attending Clinician Juju PÉREZ Attending Clinician Carlos Centeno CRNA Attending Clinician Trevor COOMBS Attending Clinician Amanda Sevilla MD Attending Clinician Estee Peoples Attending Clinician Unavailable Corey PÉREZ Attending Clinician Nik PÉREZ V. Attending Clinician Yvonne Amador Attending Clinician [place] [facility] Attending Clinician Mandy PÉREZ Attending Clinician MANDY Attending Clinician Unavailable Justin ÉPREZ, Joelle Attending Clinician Jeanie PÉREZ, Arnold Attending Clinician Donny Callejas MD Attending Clinician Unavailable JOELLE OCAMPO Attending Clinician Unavailable John PÉREZ, Ari Attending Clinician Javier FREIRE, R Attending Clinician Leena COMBS, Roopa Attending Clinician Ruthy COMBS Attending Clinician Unavailable WANDA Attending Clinician Unavailable BRI CAMPBELL Attending Clinician Unavailable TROY SOLANO [...] Expiration Date Sour ce Number MEDICAREMEDICARE PART [id number] 2010 [facility] & 00:00:00 [id number] 2009- [phone]. [id number], [place] [address] MEDICAREMEDICARE PART [id number] 2010 Kayden Carreno AND 00:00:00 Yarsani [id number] 2009- [facility] [place]icare MEDICAREMEDICARE A [id number] 2010 CHARISMA Abraham [id number]- 00:00:00 - M edical PresentMedicare Center Problems Condition Condition Condition Status Onset Resolution Last Treating Co mments Source Name Details Category Date Date Treatment Clinician Date Respirator Respirator Disease Active 2019- [place] failure, y failure, 0-05 [facility] post-opera post-opera 00:00: st tive tive 00 Atelectasi Atelectasi Disease Active 2019-09 [place] s, right s, right 0-05 Method i 00:00: st 00 S/P S/P Disease Active 2019-09 [place] thoracotom thoracotom 0-02 Me thodi y (Left) y (Left) 00:00: st 00 Asymptomat Asymptomat Disease Active 2019-09 [place] ic HIV ic HIV 0-02 Methodi infection infection 00:00: st 00 Right Right Disease Active 2019-09 [place] ventricula ventricula 0-02 Me thodi r r 00:00: st dysfunctio dysfunctio 00 n n Nonrheumat Nonrheumat Disease Active 2019-09 [place] ic ic 0-02 [facility] tricuspid tricuspid 00:00: st valve valve 00 regurgitat regurgitat ion ion ESRD (end ESRD (end Disease Active 2019-09 [place] stage stage 0-02 Methodi renal renal 00:00: st disease) disease) 00 S/P MVR S/P MVR Disease Active 2019-09 [place] (mitral (mitral 0-02 Methodi valve valve 00:00: st replacemen replacemen 00 t/ t/ Mechanical Mechanical ) ) Current Current Disease Active 2019-09 [place] use of use of 0-02 [facility] anticoagul anticoagul 00:00: st ant ant 00 therapy therapy Shortness Shortness Disease Active [facility] of breath of breath 9-07 Meth lora 00:00: st 00 Empyema Empyema Disease Active [place] 9-07 Methodi 00:00: st 00 Fractured Fractured Disease Active [facility] femoral femoral 6-26 [facility] - neck neck 00[facility]00: Medical 00 Center Posterior Posterior Disease Active 2018-09 [facility] ris synechiae synechiae 0-16 Heal th (iris), (iris), 00:00: left eye left eye 00 Chronic Chronic Disease Active 2018-09 [facility] anterior anterior 0-16 Health uveitis, uveitis, 00:00: left left [address] Recent rd Disease Active 2018-09 [facility] ris (retinal (retinal 0-16 Health detachment detachment 00:00: ), ), 00 total/subt total/subt otal, left otal, left Drug-induc Drug-induc Disease Active [facility] ed ed 12-22 [facility] - thrombocyt thrombocyt 00:00: Me dical openia openia 00 Center S/P S/P Disease Active [facility] R-thoracot R-thoracot 12-17 Khushbu kes - nilesh, nilesh, 00:00: Medical decort, decort, 00 Center 12/17 by 12/17 by Sam Vargas Recurrent Recurrent Disease Active 2017-[address] [facility] right right 2- [facility] - pleural pleural 00:00: Medical effusion effusion 00 Center Pleural Pleural Disease Active 2017-[address] effusion effusion 09-28 [facility] - 00:00: Medical 00 Center S/P MVR S/P MVR Disease Active 2017-09 Dawn (mitral (mitral 09-03 Health valve valve 00:00: replacemen replacemen 00 t) t) Chronic Chronic Disease Active [facility] anticoagul [...] II Disease Active [facility] (diabetes (diabetes 5-10 Luke s - mellitus, mellitus, 00:00: Medi shakira type II), type II), 00 Cent er controlled controlled Paroxysmal Paroxysmal Disease Active [facility] atrial atrial 5-09 [facility] - fibrillati fibrillati 00:00: Me dical on on 00 Center Hepatic Hepatic Disease Active [facility] cirrhosis cirrhosis 4-03 Heal th due to due to 00:00: chronic chronic 00 hepatitis hepatitis C C infection infection Chronic Chronic Disease Active [facility] hepatitis hepatitis 2-08 Heal th C without C without 00:00: hepatic hepatic 00 coma coma Type 2 Type 2 Disease Active [facility] diabetes diabetes 8-28 Health mellitus mellitus 00:00: with with 00 hyperglyce hyperglyce stacey stacey HTN HTN Disease Active [facility] (hypertens (hypertens 3-19 Khushbu kes - ion) ion) 00:00: Medical 00 Center CKD CKD Disease Active [facility] (chronic (chronic 2-24 Health kidney kidney 00:00: disease) disease) 00 stage 4, stage 4, GFR 15-29 GFR 15-29 ml/min ml/min Microalbum Microalbum Disease Active H arris inuria inuria 4-25 Health 00:00: 00 History of History of Disease Active 2011-09 H [facility] atrial atrial 0-25 Health flutter flutter 00:00: 00 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 00 y y Mitral Mitral Disease Active 2011-09 [facility] regurgitat regurgitat 0-25 He alth ion ion 00:00: 00 Hepatitis Hepatitis Disease Active 2011-09 [facility] ris A immune A immune 0-25 Health 00:00: 00 Hepatitis Hepatitis Disease Active 2011-09 [facility] ris B immune B immune 0-25 Health 00:00: 00 Osteopenia Osteopenia Disease Active H arris 8-25 Health 00:00: 00 Osteoporos Osteoporos Disease Active H [facility] is, is, 8-25 Health unspecifie unspecifie 00:00: d d 00 History of History of Disease Active H arris thrombocyt thrombocyt 7-12 He alth openia openia 00:00: 00 Chronic Chronic Disease Active [facility] renal renal 712 Health insufficie insufficie 00:00: ncy ncy 00 Anemia, Anemia, Disease Active 2010-09 Dawn unspecifie unspecifie 2-15 He alth d d 00:00: 00 Macrocytos Macrocytos Disease Active 2010-09 H [facility]is is is 2-15 Health 00:00: 00 Vitamin D Vitamin D Disease Active [facility] ris deficiency deficiency - He alth 00:00: 00 Basal cell Basal cell Disease Active Overview : [facility] carcinoma, carcinoma, 05-04 [facility] leg leg 00:00: g of this note might be different from the original. 2007 Leg Leg Disease Active Overview: [facility] swelling swelling 05-04 [facility] Hea lth 00:00: g of this note might be different from the original. Left ... 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) 00:00: 00 ESRD on ESRD on Disease Active [facility] St hemodialys hemodialys Khushbu [place] - is is [facility] Postoperat Postoperat Disease Resolve 2019-092020-06-06 2020-06-06 [place] samreen samreen d 02 00:00:00 12:31:43 Method i hypotensio hypotensio 00:00: st n n 00 Allergies, Adverse Reactions, Alerts Allergy Allergy Status Severity Reaction(s) Onset Inactive Treating Comm ents Source Name Type Date Date Clinician Codeine Drug Active Other (See Pt denies [facility] Intolera Comments) 12-02 intoleran Khushbu washburn - nce 00:00: ce to Medical pain meds Center 12/18/18 Family History Family Member Diagnosis Comments Start Date Stop Date Source Natural daughter Psychiatry Dawn [facility] Natural mother Asthma [facility] Natural mother Diabetes [facility] Natural mother Heart [facility] Natural mother Hypertension [facility] ealt Natural mother Heart disease [facility] Natural father Diabetes [facility] Social History Social Habit Start Date Stop Date Quantity Comments Source Alcohol Comment None since being [facility] Dx'd with HIV, was an occasional drinker. Exposure to Not sure [facility] SARS-CoV-2 (event) History [facility] Alcohol Std Yarsani Drinks History [facility] Alcohol Binge Yarsani Sex Assigned At [place] Yarsani Tobacco use and 2020-06-21 2020-06-21 Never used [place] exposure 00:00:00 00:00:00 Yarsani Alcohol intake 2020-06-21 2020-06-21 Lifetime [place] 00:00:00 00:00:00 non-drinker Yarsani (finding) History [facility] 2019-09-12 2019-09-[address] [place] [address] Alcohol Frequency 00:00:00 00:00:[address] [facility] Food 2018-10-03 2018-10-03 1 [facility] Worry 00:00:00 00:00:00 History [facility] Food 2018-10-03 2018-10-03 1 [facility] Scarcity 00:00:00 00:00:00 Smoking Status Start Date Stop Date Source Never smoker [place] Methodis t Medications Ordered Filled Start Stop Current Ordering Indication Dosage Frequency Signature Comments Components Source Medication Medication Date Date Medication? Clinician (SIG) Name Name raltegravir Yes HIV (human 400mg Q.5D Take 1 Dawn (ISENTRESS) 2-19 immunodefic tablet by [employer] 400 mg 00:00: iency virus mouth 2 tablet 00 infection) times daily. lamiVUDine Yes HIV (human TAKE 2.5 Dawn (EPIVIR) 10 2-19 immunodefic ML BY [employer] mg/mL oral 00:00: iency virus MOUTH solution 00 infection) EVERY DAY. lopinavir-R Yes HIV (human 2{tbl} Q.5D Take 2 [facility] ITONavir 2-19 immunodefic tablets by [employer] (KALETRA) 00:00: iency virus mouth 2 200-50 mg 00 infection) times per tablet daily. warfarin Yes Anticoagula Take Perez rris (COUMADIN) 1-28 tion one-and-perez Hea lth 10 mg 00:00: adequate lf tablet tablet 00 (15mg) on MWF and one tablet (10mg) all other days.. Yes Weight loss 2{packa Q.5D Take 2 Dawn RENAL 2 SHAKIRA 1-15 of more ge} Packages H ealth oral liquid 00:00: than 10% by mouth 2 00 body weight times daily. Yes Weight loss 2{packa Q.5D Take 2 Dawn RENAL 2 SHAKIRA 1-15 of more ge} Packages H ealth oral liquid 00:00: than 10% by mouth 2 00 body weight times daily. 2020- No Weight loss 2{packa Q.5D Take 2 Dawn RENAL 2 SHAKIRA 1-15 01-15 of more ge} Packages Health oral liquid 00:00: 00:00 than 10% by mouth 2 00 :00 body weight times daily. 2019-09 No Weight loss 2{packa Q.5D Take 2 Dawn RENAL 2 SHAKIRA 2-11 01-15 of more ge} Packages Health oral liquid 00:00: 00:00 than 10% by mouth 2 00 :00 body weight times daily. levoFLOXaci 2019-09- No 250mg Q2D Take 1 [place] 0-07-05 tablet Methodi (LEVAQUIN) 00:00: 23:59 ([address] 250 MG 00 :00 total) by tablet mouth every other day for 5 days. dapsone 100 2019-09- No 100mg QD Take 1 [place] MG tablet 07-29 tablet Methodi 00:00: 23:59 ([address] 00 :00 total) by mouth daily for 30 days. epoetin 2019-09- No 8000U Q.[id number] Infuse 2 [place] jennifer-epbx 07-29 [id number] mL (8,000 [facility] (RETACRIT) 00:00: 23:[address] 4,000 00 :00 total) unit/mL into a solution venous injection catheter 3 (three) times a week for 30 days. NIFEdipine 2019-09- No 30mg QD Take 1 [place] XL 07-29 tablet (30 [facility] (PROCARDIA 00:00: 23:59 mg total) s t XL) 30 MG 00 :00 by mouth 24 hr daily for tablet 30 days. carvedilol 2019-09- No 12.5mg Q.5D Take 12.5 [facility] (COREG) 0-27 10-27 mg by Methodi 12.5 MG 22:50: 00:[address] tablet 38 :00 (two) times a day with meals. sulfamethox 2019-09- No 1{tbl} Q.5D Take 1 [place] azole-trime 0-27 10-27 tablet by Md thodi thoprim 22:50: 00:[address] (BACTRIM 38 :00 (two) DS) 800-160 times a mg per day. tablet codeine-gua 2019-09- No acute pain 5mL Q.[id number] Take 5 m L [facility] ifenesin 0-27 10- [id number] by mouth 3 [facility] (GUAIFENESI 22:50: 00:00 3D (three) st N AC) 38 :00 times a 10-100 mg/5 day as mL liquid needed for cough .acute pain. clotrimazol 2019-09- No Q.5D Apply [place] e 0-27 10-27 topically Methodi (LOTRIMIN) 22:50: 00:00 2 (two) [...] moderate pain .acute pain. ergocalcife 2019-09 Yes [id number] Q7D Take [place] rol 0-27 50,000 [...] (two) per tablet times a day. prednisoLON 2019- Yes 1[drp] Q.25D 1 drop 4 [facility] E sodium 0-27 (four) Methodi phosphate 1 22:50: times a st % 33 day. ophthalmic solution lamiVUDine 2019- Yes Q.5D Take by [place] (EPIVIR) [...] mg/3 mL times a nebulizer day. docusate 2019-09 2020- No 100mg Q.5D Take 1 [place] sodium 0-27 11-26 capsule Methodi (COLACE) 00:00: 23:59 ([address] 100 MG 00 :00 total) by capsule mouth 2 (two) times a day for 30 days. gabapentin 2019-09 2020- No 300mg QD Take [address] [facility] (NEURONTIN) 0-27 11-26 capsule Meth lora 300 mg 00:00: 23:59 ([address] capsule 00 :00 total) by mouth nightly for 30 days. polyethylen 2020- 2020- No 17g Q.5D Take 17 g [facility] e glycol 0-27 11-26 by mouth 2 Meth lora (MIRALAX) 00:00: 23:59 (two) st 17 gram 00 :00 times a packet day for 30 days. sennosides- 2019- 2020- No 1{tbl} Q.5D Take 1 [place] docusate 0-27 11- tablet by Metho di sodium 00:00: 23:[address] (SENOKOT-S) 00 :00 (two) 8.6-50 mg times a per tablet day for 30 days. simethicone 2019-09- No 80mg Q6H Chew 1 [facility] (MYLICON) 0- tablet (80 Met hodi 80 MG 00:00: 23:59 mg total) st chewable 00 :00 every 6 tablet (six) hours as needed for flatulence for up to 30 days. metFORMIN 2019-09- No 500mg Q.5D Take 0.5 [place] (GLUCOPHAGE 0-29 07- tablets Meth lora ) 1,000 mg 00:00: 23:59 ([address] tablet 00 :00 total) by mouth 2 (two) times a day with meals for 30 days. atorvastati 2019- Yes Mixed 20mg Take 1 [facility] ris n (LIPITOR) 9-22 hyperlipide tablet by [employer] 20 mg 00:00: stacey mouth at tablet 00 bedtime nightly. carvediloL Yes Essential TAKE 1 Dawn (COREG) 8-24 hypertensio TABLET BY [employer] 12.5 mg 00:00: n MOUTH tablet 00 TWICE DAILY WITH MEALS polyethylen 2019- Yes Occult Add Marcy is e glycol 04-08 blood [facility] ([facility]) 00:00: positive drinking 236-22.74-6 00 stool water to .74 -5.86 the fill gram oral bhavna (4 solution liters) and shake. Drink as directed by your doctor.. ergocalcife 2019- Yes Vitamin D TAKE 1 Dawn rol 8-07 deficiency CAPSULE BY [facility] (VITAMIN 00:00: MOUTH ONCE D2) 1,250 00 A WEEK. mcg (50,000 unit) capsule pantoprazol Yes Ulcer of 40mg QD Take 1 Dawn e 8-07 [facility]ophagus [facility] 00:[facility]: without mouth 40 mg 00 bleeding daily. delayed release tablet ISENTRESS 2020- No HIV (human TAKE 1 [facility] 400 mg 7-10 02-19 immunodefic TABLET BY Health tablet 00:00: 00:00 iency virus MOUTH 00 :00 infection) TWICE DAILY lamiVUDine 2020- No HIV (human TAKE 2.5 Dawn (EPIVIR) 10 7 02-19 immunodefic ML BY Health mg/mL oral 00:00: 00:00 iency virus MOUTH solution 00 :00 infection) EVERY DAY. multivitami 2020-0 Yes 1{tbl} QD Take [address] n with 7-02 tablet by [facility] - minerals 17:41: mouth Medical tablet 43 daily. [place] cholecalcif 2019-0 Yes Take by [facility] gavin, 7-02 mouth. [facility] - vitamin D3, 17:41: Medica l 2,000 unit 43 Center Cap lopinavir-r 2020-0 Yes 2{tbl} Q.5D Take [address] itonavir 7-02 tablets by [facility] - (KALETRA) 17:41: mouth 2 Medic al 200-50 mg 43 (two) Center per tablet times daily. raltegravir 2019-0 Yes 400mg Q.5D Take [address] (ISENTRESS) 7-02 mg by [facility] - 400 mg 17:41: mouth 2 Medical tablet 43 (two) Center times daily. aspirin 81 2020-0 Yes 81mg QD Take [address] MG EC 7-02 by mouth [facility] - tablet 17:41: daily. Medical 43 [place] atorvastati 2019-0 Yes 20mg QD Take [address] n (LIPITOR) 7-02 by mouth Luke s - 20 MG 17:41: daily. Medical tablet 43 [place] ergocalcife 2019-0 Yes [id number] Q7D Take [facility] rol 7-02 50,000 [facility] - (VITAMIN 17:41: Units by Medic al D2) 50,000 [address] unit a week. capsule calcium 2020-0 Yes 667mg Take 667 [facility] acetate,shayla 7-02 mg by [facility] - sphat bind, 17:41: mouth 3 Med ical (PHOSLO) 43 (three) Center 667 mg times capsule daily with meals. lamiVUDine 2020-0 Yes HIV 25mg QD Take [address] (EPIVIR) 10 7-02 infection by mouth [facility] - mg/mL 17:41: daily. Medical solution 43 Center carvediloL 2020-0 Yes 12.5mg QD Take 12.[address] (COREG) 7-02 mg by [facility] - 12.5 MG 17:41: mouth Medical tablet 43 daily. Center senna-docus 2020- No 2{tbl} QD Take [address] ate 03-03 07- tablets by Jarad - (JOSE MARTINOKOT S) 00:00: 23:59 mouth Medi shakira 8.6-50 mg 00 :00 nightly. Center per tablet HYDROcodone 2019- No 1{tbl} Take [address] -acetaminop 03-03 07-12 tablet by Khushbu alan (NORCO 00:00: 23:59 mouth Medic al 5-325) 00 :00 every 6 Center 5-325 mg (six) per tablet hours as needed for Pain for up to 10 days. Max Daily Amount: 4 tablets prednisoLON Yes Chronic 1[drp] QD Instill 1 Dawn E acetate 01-26 uveitis of Drop in H ealth (PRED 00:00: left eye left eye FORTE) 1 % 00 daily. ophthalmic suspension mupirocin 2019- No Open wound Apply to [place] calcium 01-0530 [facility] (BACTROBAN) 00:00: 00:00 area 3 2 % topical 00 :00 times cream daily. lopinavir-R 2020- No HIV (human 2{tbl} Q.5D Take 2 [place] ITONavir 11-25 02-19 immunodefic tablets by [employer] (KALETRA) 00:00: 00:00 iency virus mouth 2 200-50 mg 00 :00 infection) times per tablet daily. atorvastati 2019-2019- No Mixed 20mg Take 1 Perez rris n (LIPITOR) 11-25 hyperlipide tablet by [employer] 20 mg 00:00: 00:00 stacey mouth at tablet 00 :00 bedtime nightly. carvediloL 2019-2019- No Essential TAKE 1 Dawn (COREG) 11-25 08-24 hypertensio TABLET BY [employer] 12.5 mg 00:00: 00:00 n MOUTH tablet 00 :00 TWICE DAILY WITH MEALS. raltegravir 2019-2019- No HIV (human 400mg Q.5D Take 1 [facility] (ISENTRESS) 11-25 07-[address] [facility] 400 mg 00:00: 00:00 iency virus mouth 2 tablet 00 :00 infection) times daily. lamiVUDine 2019-0 2020- No HIV (human TAKE 2.5 Dawn (EPIVIR) 10 11-25 07-09 immunodefic ML BY Health mg/mL oral 00:00: 00:00 iency virus MOUTH solution 00 :00 infection) EVERY DAY. raltegravir 2019- No HIV (human 400mg Q.5D Take 1 Dawn (ISENTRESS) 11-[address] [facility] 400 mg 00:00: 00:00 iency virus mouth 2 tablet 00 :00 infection) times daily. lamiVUDine 2019-2019- No HIV (human TAKE 2.5 Dawn (EPIVIR) 10 11-[address] [facility] mg/mL oral 00:00: 00:00 iency virus MOUTH solution 00 :00 infection) EVERY DAY. lopinavir-R 2019- No HIV (human 2{tbl} Q.5D Take 2 Dawn ITONavir 11-24 immunodefic tablets by [employer] (KALETRA) 00:00: 00:00 iency virus mouth 2 200-50 mg 00 :00 infection) times per tablet daily. carvediloL 2019- No Essential TAKE 1 Dawn (COREG) 11-24 hypertensio TABLET BY [employer] 12.5 mg 00:00: 00:00 n MOUTH tablet 00 :00 TWICE DAILY WITH MEALS. atorvastati 2019- No Mixed 20mg Take 1 Perez rris n (LIPITOR) 11-[address] [facility] 20 mg 00:00: 00:00 stacey mouth at tablet 00 :00 bedtime nightly. fluocinonid 2019- Yes Phimosis Q.5D Apply to [place] e (LIDEX) 2-[address] [facility] 0.05 % 00:00: area 2 topical 00 times cream daily. warfarin 2020- No Anticoagula Take H arris (COUMADIN) 10-16 tion one-and-perez He alth 10 mg 00:00: 00:00 adequate lf tablet tablet 00 :00 (15mg) on MWF and one tablet (10mg) all other days.. lopinavir-R 2019-2019- No HIV (human 2{tbl} Q.5D Take 2 Dawn ITONavir 10-16 immunodefic tablets by [employer] (KALETRA) 00:00: 00:00 iency virus mouth 2 200-50 mg 00 :00 infection) times per tablet daily. codeine-gua 2019- No Chronic 5mL Take 5 mL [facility] iFENesin [id number] cough by mouth 3 [facility] (GUAIFENESI 00:00: 00:00 times N AC) 00 :00 daily as 10-100 mg/5 needed for mL syrup Cough. oseltamivir 2019- No 30 mg [place] (TAMIFLU) 09-12 immediatel Met hodi 30 MG 00:00: 00:[address] capsule 00 :00 and 30 mg after dialysis. 3 dialysis days. polyethylen 2018-09 Yes Occult Add Marcy is e glycol 09-09 blood [facility] 00:00: positive drinking 236-22.74-6 00 stool water to .74 -5.86 the fill gram oral bhavna (4 solution liters) and shake. Drink as directed by your doctor.. lamiVUDine 2018-09- No HIV (human TAKE 2.5 [facility] (EPIVIR) 10 0-30 03-[address] [facility] mg/mL oral 00:00: 00:00 iency virus MOUTH solution 00 :00 infection) EVERY DAY. raltegravir 2019- No HIV (human 400mg Q.5D Take 1 [facility] (ISENTRESS) 9-16 03-[address] [facility] 400 mg 00:00: 00:00 iency virus mouth 2 tablet 00 :00 infection) times daily. atropine Yes Chronic 1[drp] QD Instill 1 [facility] (ISOPTO 8-14 uveitis of Drop in [facility] ATROPINE) 1 00:00: left eye left eye % 00 daily. ophthalmic solution prednisoLON 2019- No Chronic 1[drp] Instill 1 [facility] E acetate 8-14 05-27 uveitis of Drop in [facility] (PRED 00:00: 00:00 left eye left eye 4 FORTE) 1 % 00 :00 times ophthalmic daily. suspension carvedilol 2019- No Essential TAKE 1 [facility] (COREG) 7-18 03-25 hypertensio TABLET BY Health 12.5 mg 00:00: 00:00 n MOUTH tablet 00 :00 TWICE DAILY WITH MEALS pantoprazol 2019- No Ulcer of 40mg QD Take 1 Dawn e 03-18 esophagus tablet by [facility] (PROTONIX) 00:00: 00:00 without mouth 40 mg 00 :00 bleeding daily. delayed release tablet atorvastati 2019- No Mixed 20mg Take 1 Perez rris n (LIPITOR) 03-[address] [facility] 20 mg 00:00: 00:00 stacey mouth at tablet 00 :00 bedtime nightly. warfarin Yes Mitral TK 1 T PO Perez rris (COUMADIN) 16 valve QD WITH 10 He alth 1 mg tablet 00:00: replaced MG FOR A 00 TOTAL DAILY DOSE OF 11 MG. ergocalcife 2019- No Vitamin D TAKE 1 Dawn rol 03-16 deficiency CAPSULE BY tracy (VITAMIN 00:00: 00:00 MOUTH ONCE D2) 50,000 00 :00 A WEEK. unit capsule carvedilol 2019- No Hypertensio 12.5mg Take 1 Dawn (COREG) 03-16 n, tablet by [facility] 12.5 mg 00:00: 00:00 unspecified mouth 2 tablet 00 :00 type times daily (with meals). pantoprazol Yes 40mg QD Take 1 [facility] [...] dical 00 :00 by mouth Center daily. triamcinolo 2019- No Bedbug Q.5D Apply to Dawn tammi 10-03 bite, affected Health (KENALOG) 00:00: 00:00 initial area 2 0.1 % 00 :00 encounter times ointment daily. warfarin 2017-[address] (COUMADIN) 2-19 patient [facility] - 6 MG tablet 00:00: instructio Medical 00 ns for Center details, 12 mg on Saturday, Saturday and Saturday, and 11 mg on Saturday, , Saturday, Saturday. aspirin 81 2017-09 Yes TK 1 T PO Perez rris mg delayed 0-04 QD Health release 00:00: tablet 00 warfarin 2017-09 2020- No TK 1 T PO [facility] ris (COUMADIN) 0-04 08-07 QHS ALONG Hea lth 10 mg 00:00: 00:00 WITH tablet 00 :00 WARFARIN 1MG FOR A TOTAL 11MG PER DAY PROAIR HFA Yes TK 2 PUFFS H arris 90 3-29 PO BID PRN Health mcg/actuati 00:00: on inhaler 00 PEDRO-EAMON Yes TK 1 T PO [facility] ris 0.8 mg per 3-21 QD Health tablet 00:00: 00 VIOS Anabel Yes see [place] 09-[address] [facility] 00:00: tion 00 instructio n. calcium Yes TK ONE C Dawn acetate 6-01 PO WITH Health (PHOSLO) 00:00: MEALS AND 667 mg cap 00 ONE C PO WITH SNACK Immunizations Ordered Immunization Filled Immunization Date Status Commen ts Source Name Name Luisa Sars-cov-2 2020-10-12 Completed [facility] Vaccination 00:00:00 FLUCELVAX QUAD PF 2020-05-24 Completed [place] 00:00:00 Yarsani Tdap (Tetanus Toxoid, 2018-12-[address] [facility] Reduced Diphtheria 00:00:00 Toxoid And Acellular Pertussis, Absorbed) Influenza Vaccine, 2017-08-23 [facility] Seasonal, Injectable 00:00:00 PPV 23 (Pneumococcal 2017-08-23 Completed [facility] Polysaccharide 23 00:00:00 Valent) Influenza Vaccine 2016-10-31 Completed [facility] 00:00:00 PPD 2014-10-19 Completed [facility] 00:00:00 Influenza Vaccine 2014-10-19 Completed [facility] 00:00:00 Pneumococcal 2013-10-29 Completed [facility] 13-valent conj 0.5 mL 00:00:00 injection PPD 2013-07-27 Completed [facility] 00:00:00 Influenza Vaccine 2013-05-26 Completed [facility] 00:00:00 PPD 2012-06-27 Completed [facility] 00:00:00 Influenza Vaccine 2012-06-27 Completed [facility] 00:00:00 Influenza Vaccine 2011-05-29 Completed [facility] 00:00:00 Hepatitis B Vaccine 2011-01-11 Completed [facility] 00:00:00 Influenza Vaccine 2010-06-27 Completed [facility] 00:00:00 Hepatitis B Vaccine 2010-06-02 Completed [facility] 00:00:00 Hepatitis B Vaccine 2010-05-04 Completed [facility] 00:00:00 Influenza Vaccine 2009-07-12 Completed [facility] 00:00:00 PPD 2009-03-28 Completed [facility] 00:00:00 Tdap Tetanus, 2009-03-24 Completed [facility] th diphtheria, acellular 00:00:00 pertussis Vaccine PPV 23 Pneumococcal 2009-03-24 Completed [facility] Polysaccaride 00:00:00 Vital Signs Vital Name Observation Time Observation Value Comments Source Systolic blood 2020-09-16 13:01:00 169 mm[Hg] [facility] pressure Diastolic blood 2020-09-16 13:01:00 91 mm[Hg] [facility] pressure Heart rate 2020-09-16 13:01:00 87 /min [facility] Body temperature 2020-09-16 13:01:00 36.89 Marjorie [facility] Respiratory rate 2020-09-16 13:01:00 18 /min [facility] Body height 2020-09-16 13:01:[address] [facility] Body weight 2020-09-16 13:01:[address] [facility] BMI 2020-09-16 13:01:00 23.56 kg/m2 [facility] Oxygen saturation in 2020-09-16 13:01:00 100 /min [facility] Arterial blood by Pulse oximetry Heart rate 2020-06-28 20:55:00 104 /min Manzanola [facility] Respiratory rate 2020-06-28 20:55:00 18 /min Luis [facility] Yarsani Oxygen saturation in 2020-06-28 20:43:00 94 /min Manzanola Yarsani Arterial blood by Pulse oximetry Systolic blood 2020-06-28 19:35:23 123 mm[Hg] Damaris n Yarsani pressure Diastolic blood 2020-06-28 19:35:23 73 mm[Hg] Bert on Yarsani pressure Body temperature 2020-06-28 19:35:23 36.44 Marjorie Hous ye Yarsani Body weight 2020-06-28 03:41:29 59.784 kg Rene Yarsani BMI 2020-06-28 03:41:29 20.64 kg/m2 López Yarsani Body height 2020-06-02 12:50:00 170.2 cm López Yarsani Respiratory rate 2020-04-21 23:45:00 17 /min [facility] Oxygen saturation in 2020-04-21 23:45:00 98 /min [facility] - Arterial blood by Medical Ce nter Pulse oximetry Systolic blood 2020-04-21 23:45:00 173 mm[Hg] [facility] Diastolic blood 2020-04-21 23:45:00 84 mm[Hg] [facility] Heart rate 2020-04-21 23:45:00 87 /min [facility] Body temperature 2020-04-21 23:45:00 36.72 Marjorie [facility] Body height 2020-04-21 20:57:00 170.2 cm [facility] Body weight 2020-04-21 20:57:00 69.854 kg [facility] BMI 2020-04-21 20:57:00 24.12 kg/m2 [facility] Procedures Procedure Date / Time Performing Clinician Source Performed PTINR POC 2020-10-06 11:24:00 [facility] U/S ABDOMEN 2020-09-23 07:59:04 Gruinder Chand PT/INR 2020-08-12 09:07:00 Gurinder Chand CBC/DIFF 2020-08-12 09:07:00 Gurinder Chand h CD4/CD8 RATIO GRP 2020-08-12 09:07:00 Gurinder Chand [facility] COMPREHENSIVE METABOLIC 2020-08-12 09:07:00 Gurinder Chand [facility] PANEL HIV RNA VIRAL LOAD 2020-08-12 09:07:00 Gurinder Chand SYPHILIS MONITOR FOR 2020-08-12 09:07:[address] [facility] TREATMENT HCV RNA QUANT, PCR 2020-08-12 09:07:00 Gurinder Chand [facility] CBC 2020-08-12 09:07:00 Gurinder Chand Healt h [id number] 2020-06-29 00:00:00 ENCPL [id number] 2020-06-29 00:00:00 ENCPL [id number] 2020-06-29 00:00:00 ENCPL [id number] 2020-06-29 00:00:00 ENCPL [id number] 2020-06-29 00:00:00 ENCPL [id number] 2020-06-29 00:00:00 ENCPL [id number] 2020-06-29 00:00:00 ENCPL [id number] 2020-06-29 00:00:00 ENCPL [id number] 2020-06-29 00:00:00 ENCPL POC GLUCOSE 2020-06-28 18:17:00 Vo, Juju López Meth odist POC GLUCOSE 2020-06-28 12:58:00 Vo, Juju López Meth odist POC GLUCOSE 2020-06-28 08:06:00 VoJuju odist BASIC METABOLIC PANEL 2020-06-28 03:08:00 Faustina Persaud on Yarsani [place] ESTIMATED GFR 2020-06-28 03:08:00 Faustina Persaud Met hodist [place] PROTHROMBIN TIME WITH INR 2020-06-28 02:49:00 Faustina Persaud Yarsani [place] HC COMPLETE BLD COUNT 2020-06-28 02:49:00 Faustina Persaud on Yarsani W/AUTO DIFF [place] POC GLUCOSE 2020-06-27 21:30:00 VoJuju Meth odist POC GLUCOSE 2020-06-27 18:38:00 VoJuju odist POTASSIUM LEVEL 2020-06-27 15:44:00 Rashaun Amezcua Meth odist Bharatkumar POC GLUCOSE 2020-06-27 15:08:[address] CHEST WO CONTRAST 2020-06-27 13:20:49 Juju Bolandist HEMODIALYSIS 2020-06-27 06:57:40 Rashaun Amezcua Meth odist Bharatkumar PROTHROMBIN TIME WITH INR 2020-06-27 06:14:00 Vo, Juju Wilson HC COMPLETE BLD COUNT 2020-06-27 06:14:00 Vo, Juju barahona Yarsani W/AUTO DIFF BASIC METABOLIC PANEL 2020-06-27 06:14:00 Vo, Juju barahona Yarsani ESTIMATED GFR 2020-06-27 06:14:00 Vo, Juju López Meth odist SMEAR REVIEW 2020-06-27 06:14:00 Vo, Juju López Meth odist COVID-19 QUALITATIVE PCR 2020-06-27 06:00:00 Vo, Juju Hopeist XR CHEST 1 VW PORTABLE 2020-06-26 22:56:48 Vo, Juju Noel on Yarsani POC GLUCOSE 2020-06-26 20:35:00 Vo, Juju López Meth odist POC GLUCOSE 2020-06-26 17:33:00 Vo, Juju López Meth odist POC GLUCOSE 2020-06-26 11:57:00 Vo, Juju López Meth odist POC GLUCOSE 2020-06-26 07:19:00 Vo, Juju López Meth odist HC COMPLETE BLD COUNT 2020-06-26 06:20:00 Minerva Carvajal Trip mortensen Yarsani W/AUTO DIFF BASIC METABOLIC PANEL 2020-06-26 06:20:00 Minerva Carvajal Trip mortensen Yarsani MAGNESIUM LEVEL 2020-06-26 06:20:00 Minerva Carvajal ethodist PHOSPHORUS LEVEL 2020-06-26 06:20:00 Minerva Carvajal Yarsani ESTIMATED GFR 2020-06-26 06:20:00 Minerva Carvajal ethodist SMEAR REVIEW 2020-06-26 06:20:00 Minerva Carvajal ethodist PROTHROMBIN TIME WITH INR 2020-06-26 04:40:00 Vo, Juju faye Yarsani PARTIAL THROMBOPLASTIN 2020-06-26 04:40:00 Vo, Juju Noel on Yarsani TIME (PTT) POC GLUCOSE 2020-06-25 21:11:00 Vo, Juju López Meth odist POC GLUCOSE 2020-06-25 18:21:00 Vo, Juju López Meth odist POC GLUCOSE 2020-06-25 12:04:00 Vo, Juju López Meth odist POC GLUCOSE 2020-06-25 08:28:00 Vo, Juju López Meth odist BASIC METABOLIC PANEL 2020-06-25 04:00:00 Rashaun Amezcua Yarsani Bharatkumar PARTIAL THROMBOPLASTIN 2020-06-25 04:00:00 Vo, Juju Noel on Yarsani TIME (PTT) PROTHROMBIN TIME WITH INR 2020-06-25 04:00:00 Vo, Juju Wilson ESTIMATED GFR 2020-06-25 04:00:00 Vo, Juju chavez HC COMPLETE BLD COUNT 2020-06-25 04:00:00 Vo, Juju Wilson W/AUTO DIFF SMEAR REVIEW 2020-06-25 04:00:00 Vo, Juju Martins odist POC GLUCOSE 2020-06-24 21:01:00 Vo, Juju chavez TRANSFUSE RED BLOOD CELLS 2020-06-24 16:26:45 Rashaun Amezcua Bharatkumar POC GLUCOSE 2020-06-24 11:46:00 Vo, Juju chavez TYPE AND SCREEN 2020-06-24 10:30:00 Rashaun Amezcua odist Bharatkumar PREPARE RBC 2020-06-24 10:30:00 Rashaun Amezcua odist Bharatkumar HEMODIALYSIS 2020-06-24 08:17:42 Rashaun Amezcua odist Bharatkumar POC GLUCOSE 2020-06-24 07:40:00 Vo, Juju Martins odist BASIC METABOLIC PANEL 2020-06-24 03:07:00 Rashaun Amezcua Yarsani Bharatkumar PHOSPHORUS LEVEL 2020-06-24 03:07:00 Rashaun Amezcua hodnatalie Bharatkumar ESTIMATED GFR 2020-06-24 03:07:00 Joseph Rivera odist Ebrahim PROTHROMBIN TIME WITH INR 2020-06-24 02:45:00 Joseph Rivera Yarsani Ebrahim PARATHYROID HORMONE 2020-06-24 02:45:00 Rashaun Amezcua Bharatkumar CBC HEMOGRAM 2020-06-24 02:45:00 Juliana Ruiz PARTIAL THROMBOPLASTIN 2020-06-24 02:45:00 Vo, Juju Noel on Yarsani TIME (PTT) POC GLUCOSE 2020-06-23 21:07:00 Vo, Le López Meth odist PARTIAL THROMBOPLASTIN 2020-06-23 20:05:00 Vo, Juju Noel on Yarsani TIME (PTT) XR CHEST 1 VW PORTABLE 2020-06-23 18:23:26 Vo, Juju Noel on Yarsani POC GLUCOSE 2020-06-23 18:02:00 Vo, Juju López Meth odist PARTIAL THROMBOPLASTIN 2020-06-23 13:00:00 Joseph Rivera on Yarsani TIME (PTT) Ebrahim POC GLUCOSE 2020-06-23 12:38:00 Vo, Juju López Meth odist POC GLUCOSE 2020-06-23 08:24:00 Vo, Juju López Meth odist BASIC METABOLIC PANEL 2020-06-23 04:00:00 Joseph Rivera Yarsani Ebrahim HC COMPLETE BLD COUNT 2020-06-23 04:00:00 Joseph Rivera Yarsani W/AUTO DIFF Ebrahim MAGNESIUM LEVEL 2020-06-23 04:00:00 Joseph Rivera Meth odist Ebrahim PHOSPHORUS LEVEL 2020-06-23 04:00:00 Joseph Rivera Met hodist Ebrahim PROTHROMBIN TIME WITH INR 2020-06-23 04:00:00 Joseph Riveraton Yarsani Ebrahim PARTIAL THROMBOPLASTIN 2020-06-23 04:00:00 Vo, Juju Noel on Yarsani TIME (PTT) ESTIMATED GFR 2020-06-23 04:00:00 Vo, Juju López Meth odist SMEAR REVIEW 2020-06-23 04:00:00 Vo, Juju López Meth odist POC GLUCOSE 2020-06-22 21:35:00 Vo, Juju López Meth odist POC GLUCOSE 2020-06-22 14:01:00 Vo, Juju López Meth odist POC GLUCOSE 2020-06-22 12:21:00 Vo, Juju López Meth odist PARTIAL THROMBOPLASTIN 2020-06-22 10:16:00 Vo, Juju Noel on Yarsani TIME (PTT) POC GLUCOSE 2020-06-22 08:36:00 Vo, Juju López Meth odist HEMODIALYSIS 2020-06-22 07:58:47 SutRashaun pate Meth odist Bharatkumar BASIC METABOLIC PANEL 2020-06-22 04:40:00 Joseph Rivera Yarsani Ebrahim HC COMPLETE BLD COUNT 2020-06-22 04:40:00 Lisa Joseph Damaris n Yarsani W/AUTO DIFF Ebrahim MAGNESIUM LEVEL 2020-06-22 04:40:00 Joseph Rivera Meth odist Ebrahim PHOSPHORUS LEVEL 2020-06-22 04:40:00 Joseph Rivera Met hodist Ebrahim PARTIAL THROMBOPLASTIN 2020-06-22 04:40:00 Noris Riverasuf Bert on Yarsani TIME (PTT) Ebrahim PROTHROMBIN TIME WITH INR 2020-06-22 04:40:00 Noris Riverasuf Kayden uston Yarsani Ebrahim ESTIMATED GFR 2020-06-22 04:40:00 Joseph Rivera Meth odist Ebrahim SMEAR REVIEW 2020-06-22 04:40:00 Joseph Rivera Meth odist Ebrahim POC GLUCOSE 2020-06-21 20:49:00 Joseph Rivera Meth odist Ebrahim POC GLUCOSE 2020-06-21 17:03:00 Joseph Rivera Meth odist Ebrahim SPIROMETRY, DIFFUSION 2020-06-21 15:26:26 John Fletcher Yarsani POC GLUCOSE 2020-06-21 12:39:00 Joseph Rivera Meth odist Ebrahim POC GLUCOSE 2020-06-21 07:42:00 Joseph Rivera Meth odist Ebrahim PROTHROMBIN TIME WITH INR 2020-06-21 04:15:00 Noris Riverasuf Kayden uston Yarsani Ebrahim PARTIAL THROMBOPLASTIN 2020-06-21 04:15:00 LisaNorisJosephmarline Noel on Yarsani TIME (PTT) Ebrahim BASIC METABOLIC PANEL 2020-06-21 04:15:00 Joseph Rivera n Yarsani Ebrahim CBC WITH PLATELET AND 2020-06-21 04:15:00 Joseph Riverato n Yarsani DIFFERENTIAL Ebrahim MAGNESIUM LEVEL 2020-06-21 04:15:00 Joseph Rivera Meth odist Ebrahim PHOSPHORUS LEVEL 2020-06-21 04:15:00 Joseph Rivera Met hodist Ebrahim ESTIMATED GFR 2020-06-21 04:15:00 Joseph Rivera Meth odist Ebrahim MANUAL DIFFERENTIAL 2020-06-21 04:15:00 Joseph Rivera Yarsani Ebrahim POC GLUCOSE 2020-06-20 20:39:00 Joseph Rivera Meth odist Ebrahim POC GLUCOSE 2020-06-20 13:48:00 Joseph Rivera Meth odist Ebrahim POC GLUCOSE 2020-06-20 12:12:00 Joseph Rivera Meth odist Ebrahim HEMODIALYSIS 2020-06-20 08:02:57 JuliaRashaun pate Meth odist Bharatkumar POC GLUCOSE 2020-06-20 07:45:00 Joseph Rivera Meth odist Ebrahim PROTHROMBIN TIME WITH INR 2020-06-20 04:40:00 Joseph Rivera Kayden [place] Yarsani Ebrahim PARTIAL THROMBOPLASTIN 2020-06-20 04:40:00 Joseph Riverajon on Yarsani TIME (PTT) Ebrahim CBC HEMOGRAM 2020-06-20 04:40:00 Joseph Rivera Meth odist Ebrahim BASIC METABOLIC PANEL 2020-06-20 04:40:00 Joseph Riveramadelaine n Yarsani Ebrahim ESTIMATED GFR 2020-06-20 04:40:00 Joseph Rivera [...] COMPLETE BLD COUNT 2020-06-19 05:20:00 Jesus Cr Yarsani W/AUTO DIFF PROTHROMBIN TIME WITH INR 2020-06-19 05:20:00 Joseph Rivera uston Yarsani Ebrahim PARTIAL THROMBOPLASTIN 2020-06-19 05:20:00 Joseph Rivera Bert on Yarsani TIME (PTT) Ebrahim SMEAR REVIEW 2020-06-19 05:20:00 Joseph Rivera Meth odist Ebrahim BASIC METABOLIC PANEL 2020-06-19 04:00:00 Jesus Cr n Yarsani MAGNESIUM LEVEL 2020-06-19 04:00:00 Jesus Cr Meth odist PHOSPHORUS LEVEL 2020-06-19 04:00:00 Jesus Cr Met hodist ESTIMATED GFR 2020-06-19 04:00:00 Joseph Rivera Meth odist Ebrahim POC GLUCOSE 2020-06-18 21:20:00 Joseph Rivera Meth odist Ebrahim POC GLUCOSE 2020-06-18 11:53:00 Joseph Rivera Meth odist Ebrahim HEMODIALYSIS 2020-06-18 10:20:47 Rashaun Amezcua Meth odist Bharatkumar PROTHROMBIN TIME WITH INR 2020-06-18 09:56:00 Joseph Rivera uston Yarsani Ebrahim POC GLUCOSE 2020-06-18 07:48:00 Joseph Rivera Meth odist Ebrahim HC COMPLETE BLD COUNT 2020-06-18 05:20:00 Jesus Cr Yarsani W/AUTO DIFF PARTIAL THROMBOPLASTIN 2020-06-18 05:20:00 Jesus Cr on Yarsani TIME (PTT) SMEAR REVIEW 2020-06-18 05:20:00 Joseph Rivera Meth odist Ebrahim BASIC METABOLIC PANEL 2020-06-18 04:00:00 Jesus Cr n Yarsani MAGNESIUM LEVEL 2020-06-18 04:00:00 Jesus Cr Meth odist PHOSPHORUS LEVEL 2020-06-18 04:00:00 Jesus Cr Met hodist ESTIMATED GFR 2020-06-18 04:00:00 Joseph Rivera Meth odist Ebrahim POC GLUCOSE 2020-06-17 23:28:00 Joseph Rivera Meth odist Ebrahim POC GLUCOSE 2020-06-17 13:35:00 Joseph Rivera Meth odist Ebrahim POC GLUCOSE 2020-06-17 12:47:00 Joseph Rivera Meth odist Ebrahim [place] AN PERIPHERAL BLOCK 2020-06-17 10:15:57 Joseph Rivera on Yarsani PROCEDURE FOR PAIN Ebrahim POC GLUCOSE 2020-06-17 07:25:00 Joseph Rivera Meth odist Ebrahim CBC WITH PLATELET AND 2020-06-17 04:38:00 Leydi Mensah Yarsani DIFFERENTIAL PARTIAL THROMBOPLASTIN 2020-06-17 04:38:00 Tone Orellana Yarsani TIME (PTT) SMEAR REVIEW 2020-06-17 04:38:00 Rashaun Amezcua Meth odist Bharatkumar BASIC METABOLIC PANEL 2020-06-17 04:00:00 Jesus Cr n Yarsani MAGNESIUM LEVEL 2020-06-17 04:00:00 Jesus Cr Meth odist PHOSPHORUS LEVEL 2020-06-17 04:00:00 Jesus Cr Met hodist ESTIMATED GFR 2020-06-17 04:00:00 JuliaRashaun pate Meth odist Bharatkumar PARTIAL THROMBOPLASTIN 2020-06-16 22:30:00 Tone Orellana stojun Yarsani TIME (PTT) POC GLUCOSE 2020-06-16 21:49:00 Joseph Rivera Meth odist Ebrahim POC GLUCOSE 2020-06-16 17:30:00 Joseph Rivera Meth odist Ebrahim XR ABDOMEN 1 VW 2020-06-16 16:03:00 Joseph Rivera Meth odist Ebrahim PARTIAL THROMBOPLASTIN 2020-06-16 15:30:00 Joseph Rivera on Yarsani TIME (PTT) Ebrahim POC GLUCOSE 2020-06-16 11:52:00 Joseph Rivera Meth odist Ebrahim POC GLUCOSE 2020-06-16 08:03:00 Joseph Rivera Meth odist Ebrahim PARTIAL THROMBOPLASTIN 2020-06-16 08:00:00 Tone Orellana Yarsani TIME (PTT) BASIC METABOLIC PANEL 2020-06-16 05:00:00 Jesus rC Yarsani HC COMPLETE BLD COUNT 2020-06-16 05:00:00 BiowNaldo Yarsani W/AUTO DIFF MAGNESIUM LEVEL 2020-06-16 05:00:00 Biow, Naldo Rene Meth odist PHOSPHORUS LEVEL 2020-06-16 05:00:00 Biow Naldo Rene Met hodist ESTIMATED GFR 2020-06-16 05:00:00 VoJuju odist SMEAR REVIEW 2020-06-16 05:00:00 VoJuju odist PARTIAL THROMBOPLASTIN 2020-06-16 00:30:00 Tone Orellana stojun Yarsani TIME (PTT) POC GLUCOSE 2020-06-15 21:13:00 Joseph Rivera Meth odist Ebrahim PARTIAL THROMBOPLASTIN 2020-06-15 18:15:00 Joseph Rivera Bert on Yarsani TIME (PTT) Ebrahim POC GLUCOSE 2020-06-15 17:35:00 Joseph Rivera Meth odist Ebrahim CT CHEST WO CONTRAST 2020-06-15 11:59:13 Jory Levy Yarsani PARTIAL THROMBOPLASTIN 2020-06-15 11:30:00 Tone Orellana Yarsani TIME (PTT) POC GLUCOSE 2020-06-15 08:00:00 Joseph Rivera Meth odist Ebrahim HEMODIALYSIS 2020-06-15 06:53:10 Rashaun Amezcua Rene Meth odist Bharatkumar XR CHEST 1 VW PORTABLE 2020-06-15 06:28:00 Juju Boland on Yarsani BASIC METABOLIC PANEL 2020-06-15 02:39:00 Jesus Cr Yarsani MAGNESIUM LEVEL 2020-06-15 02:39:00 Biow Naldo Martins odist PHOSPHORUS LEVEL 2020-06-15 02:39:00 Biow, Naldo López Met hodist ESTIMATED GFR 2020-06-15 02:39:00 JuliaRashaun pate Meth odist Bharatkumar CBC WITH PLATELET AND 2020-06-15 02:00:00 Biow, Naldo barahona Yarsani DIFFERENTIAL PROTHROMBIN TIME WITH INR 2020-06-15 02:00:00 Vo, Juju faye Yarsani PARTIAL THROMBOPLASTIN 2020-06-15 02:00:00 Goldie Rashaun Noel on Yarsani TIME (PTT) Bharatkumar SMEAR REVIEW 2020-06-15 02:00:00 JuliaRashaun pate Meth odist Bharatkumar POC GLUCOSE 2020-06-15 01:41:00 Vo, Juju López Meth odist POC GLUCOSE 2020-06-14 21:50:00 Vo, Juju López Meth odist CBC HEMOGRAM 2020-06-14 18:17:00 Vo, Juju López Meth odist TROPONIN 2020-06-14 18:17:00 MicJoy logan Rene Meth odist PARTIAL THROMBOPLASTIN 2020-06-14 18:16:00 Vo, Juju Noel on Yarsani TIME (PTT) POC GLUCOSE 2020-06-14 18:07:00 Vo, Juju López Meth odist PARTIAL THROMBOPLASTIN 2020-06-14 15:45:00 Vo, Juju Noel on Yarsani TIME (PTT) ULTRAFILTRATION 2020-06-14 12:36:13 JuliaRashaun pate Meth odist Bharatkumar POC GLUCOSE 2020-06-14 09:33:00 Vo, Juju López Meth odist XR CHEST 1 VW PORTABLE 2020-06-14 08:12:52 Shanita Miller on Yarsani POC GLUCOSE 2020-06-14 04:52:00 Vo, Juju López Meth odist PARTIAL THROMBOPLASTIN 2020-06-14 04:30:00 Vo, Juju Noel on Yarsani TIME (PTT) HC COMPLETE BLD COUNT 2020-06-14 04:30:00 Biow, Naldo Hopeist W/AUTO DIFF PROTHROMBIN TIME WITH INR 2020-06-14 04:30:00 Biow, Naldo faye Yarsani SMEAR REVIEW 2020-06-14 04:30:00 SutariaRashaun Meth odist Bharatkumar TYPE AND SCREEN 2020-06-14 04:30:00 Daniel Grant Met césar Vaughan BASIC METABOLIC PANEL 2020-06-14 04:00:00 Jesus Cr Yarsani MAGNESIUM LEVEL 2020-06-14 04:00:00 BiowNaldo Rene Meth odist PHOSPHORUS LEVEL 2020-06-14 04:00:00 Biow, Naldo López Met césar ESTIMATED GFR 2020-06-14 04:00:00 Tammi Amezcuail Rene Meth odist Bharatkumar ECG 12-LEAD 2020-06-14 03:46:44 Miclat, Joy Martins odist TROPONIN 2020-06-14 02:00:00 Miclat, Joy Martins odist POC GLUCOSE 2020-06-14 01:08:00 Vo, Juju Martins odist ECG 12-LEAD 2020-06-13 22:09:24 Miclat, Joy Martins odist POC GLUCOSE 2020-06-13 21:50:00 Vo, Juju Martins odist CT RENAL STONE PROTOCOL 2020-06-13 21:14:42 Vo, Juju belcher Yarsani TROPONIN 2020-06-13 20:00:00 Miclat, Joy Martins odist POC GLUCOSE 2020-06-13 18:44:00 Vo, Juju chavez HC COMPLETE BLD COUNT 2020-06-13 14:51:00 Miclat, Joy Hopeist W/AUTO DIFF TROPONIN 2020-06-13 14:51:00 Miclat, Joy Martins odist PARTIAL THROMBOPLASTIN 2020-06-13 14:51:00 Miclat, Joy Noel on Yarsani TIME (PTT) PROTHROMBIN TIME WITH INR 2020-06-13 14:51:00 Miclat, Joy Wilson BASIC METABOLIC PANEL 2020-06-13 14:27:00 Miclat, Joy barahona Yarsani MAGNESIUM LEVEL 2020-06-13 14:27:00 Miclat, Joy Martins odist PHOSPHORUS LEVEL 2020-06-13 14:27:00 Miclat, Joy lindsey ESTIMATED GFR 2020-06-13 14:27:00 Miclat, Joy López Meth odist ECG 12-LEAD 2020-06-13 14:18:02 Vo, Juju López Meth odist XR ABDOMEN 1 VW PORTABLE 2020-06-13 14:00:51 Vo, Juju Dominique ston Yarsani XR CHEST 1 VW PORTABLE 2020-06-13 14:00:26 Vo, Juju Smitht on Yarsani POC GLUCOSE 2020-06-13 12:56:00 Vo, Juju López Meth odist HEMODIALYSIS 2020-06-13 10:56:37 Rashaun Amezcua Meth odist Bharatkumar POC GLUCOSE 2020-06-13 08:44:00 Vo, Juju López Meth odist POC GLUCOSE 2020-06-13 06:00:00 Vo, Juju López Meth odist PARTIAL THROMBOPLASTIN 2020-06-13 04:40:00 Vo, Juju Noel on Yarsani TIME (PTT) BASIC METABOLIC PANEL 2020-06-13 04:00:00 Rashaun Amezcua n Yarsani Bharatkumar ESTIMATED GFR 2020-06-13 04:00:00 Vo, Juju López Meth odist POC GLUCOSE 2020-06-12 21:25:00 Vo, Juju López Meth odist COVID-19 QUALITATIVE PCR 2020-06-12 14:16:00 BioNaldo turner Yarsani POC GLUCOSE 2020-06-12 11:33:00 Vo, Juju López Meth odist POC GLUCOSE 2020-06-12 07:31:00 Vo, Juju López Meth odist PROTHROMBIN TIME WITH INR 2020-06-12 05:00:00 Vo, Juju Monique uston Yarsani PARTIAL THROMBOPLASTIN 2020-06-12 05:00:00 John Fletcher Yarsani TIME (PTT) POC GLUCOSE 2020-06-11 21:24:00 Vo, Juju López Meth odist POC GLUCOSE 2020-06-11 17:10:00 Vo, Juju López Meth odist POC GLUCOSE 2020-06-11 11:36:00 Vo, Juju López Meth odist XR CHEST 1 VW PORTABLE 2020-06-11 09:04:51 Vo, Juju Smitht on Yarsani POC GLUCOSE 2020-06-11 07:35:00 Vo, Juju López Meth odist PROTHROMBIN TIME WITH INR 2020-06-11 03:30:00 Vo, Le Ho uston Yarsani PARTIAL THROMBOPLASTIN 2020-06-11 03:30:00 Vo, Juju Noel on Yarsani TIME (PTT) BASIC METABOLIC PANEL 2020-06-11 03:30:00 Vo, Juju Ocampo n Yarsani CBC WITH PLATELET AND 2020-06-11 03:30:00 Vo, Juju Ocampo n Yarsani DIFFERENTIAL ESTIMATED GFR 2020-06-11 03:30:00 Vo, Juju López Meth odist MANUAL DIFFERENTIAL 2020-06-11 03:30:00 Vo, Juju López Yarsani POC GLUCOSE 2020-06-10 23:54:00 Vo, Juju López Meth odist POC GLUCOSE 2020-06-10 17:33:00 Vo, Juju Martins odist US DUPLEX HEMODIALYSIS AVG 2020-06-10 16:14:06 Heriberto Villaoph carin López Yarsani AVF ACCESS Larry POC GLUCOSE 2020-06-10 12:20:00 Vo, Juju López Meth odist HEMODIALYSIS 2020-06-10 11:18:17 JuliaRashaun pate Meth odist Bharatkumar POC GLUCOSE 2020-06-10 08:22:00 Vo, Juju López Meth odist PROTHROMBIN TIME WITH INR 2020-06-10 03:45:00 Vo, Juju faye Yarsani TOTAL IRON BINDING 2020-06-10 03:45:00 GoldieRashaun M ethodist CAPACITY Bharatkumar FERRITIN LEVEL 2020-06-10 03:45:00 GoldieRashaun odist Bharatkumar CBC WITH PLATELET AND 2020-06-10 03:45:00 Vo, Juju Ocampo n Yarsani DIFFERENTIAL BASIC METABOLIC PANEL 2020-06-10 03:45:00 Vo, Juju barahona Yarsani ESTIMATED GFR 2020-06-10 03:45:00 Vo, Juju López Meth odist MANUAL DIFFERENTIAL 2020-06-10 03:45:00 Vo, Juju López Yarsani PARTIAL THROMBOPLASTIN 2020-06-10 03:45:00 Vo, Juju Noel on Yarsani TIME (PTT) POC GLUCOSE 2020-06-09 21:34:00 Vo, Juju López Meth odist POC GLUCOSE 2020-06-09 20:57:00 Vo, Juju López Meth odist POC GLUCOSE 2020-06-09 17:51:00 Vo, Juju López Meth odist HEMOGLOBIN & HEMATOCRIT 2020-06-09 14:54:00 Jory Romero Yarsani POC GLUCOSE 2020-06-09 11:54:00 Vo, Juju López Meth odist FL MODIFIED BARIUM SWALLOW 2020-06-09 11:39:27 Jory Romero Yarsani XR CHEST 1 VW PORTABLE 2020-06-09 11:05:22 Julieta Brock on Yarsani PARTIAL THROMBOPLASTIN 2020-06-09 07:35:00 VoJuju on Yarsani TIME (PTT) POC GLUCOSE 2020-06-09 07:33:00 Vo, Juju Lóepz Meth odist ECG 12-LEAD 2020-06-09 04:12:22 BooKrystyna Met hodist Elane ECG 12-LEAD 2020-06-09 03:46:06 MurrayDarrell harrison Meth odist POC GLUCOSE 2020-06-09 03:36:00 Vo, Juju López Meth odist XR CHEST 1 VW PORTABLE 2020-06-09 03:12:00 Darrell Murray on Yarsani BASIC METABOLIC PANEL 2020-06-09 03:02:00 Darrell Murray Yarsani MAGNESIUM LEVEL 2020-06-09 03:02:00 Darrell Murray Meth odist PHOSPHORUS LEVEL 2020-06-09 03:02:00 Darrell Murray Met hodist IONIZED CALCIUM 2020-06-09 03:02:00 Darrell Murray odist ESTIMATED GFR 2020-06-09 03:02:00 Ruchi Kirkpatrick Meth odist PROTHROMBIN TIME WITH INR 2020-06-09 02:42:00 KayaRuchi leonard uston Yarsani CBC WITH PLATELET AND 2020-06-09 02:42:00 Darrell Murray Yarsani DIFFERENTIAL PARTIAL THROMBOPLASTIN 2020-06-09 02:42:00 Darrell Murray on Yarsani TIME (PTT) MANUAL DIFFERENTIAL 2020-06-09 02:42:00 KayaRuchi leonard Yarsani POC GLUCOSE 2020-06-09 00:37:00 Vo, Juju López Meth odist POC GLUCOSE 2020-06-08 20:15:00 Vo, Juju López Meth odist PARTIAL THROMBOPLASTIN 2020-06-08 18:50:00 Tone Orellana Luis Trip ston Yarsani TIME (PTT) POC GLUCOSE 2020-06-08 15:33:00 Vo, Juju López Meth odist XR CHEST 1 VW PORTABLE 2020-06-08 12:15:00 Julieta Brock on Yarsani POC GLUCOSE 2020-06-08 11:27:00 Vo, Juju López Meth odist HEPATITIS B SURFACE 2020-06-08 10:47:00 SutariaRashaun Yarsani ANTIGEN Bharatkumar PARTIAL THROMBOPLASTIN 2020-06-08 10:30:00 Vo, Juju Noel on Yarsani TIME (PTT) HEMODIALYSIS 2020-06-08 09:58:34 SutRashaun pate Meth odist Bharatkumar POC GLUCOSE 2020-06-08 07:25:00 Vo, Juju López Meth odist XR CHEST 1 VW PORTABLE 2020-06-08 03:49:00 Latiff, Kelly Monique uston Yarsani POC GLUCOSE 2020-06-08 03:31:00 Vo, Juju Rene Meth odist BASIC METABOLIC PANEL 2020-06-08 02:42:00 Latiff, Kelly Moniqueu ston Yarsani MAGNESIUM LEVEL 2020-06-08 02:42:00 Latiff, Kelly López M ethodist ESTIMATED GFR 2020-06-08 02:42:00 Latiff, Cielonena López M ethodist TYPE AND SCREEN 2020-06-08 02:35:00 Latiff, Cielonena López M ethodist PREPARE RBC 2020-06-08 02:35:00 MurrayDarrell harrison Rene Meth odist PARTIAL THROMBOPLASTIN 2020-06-08 02:15:00 Vo, Juju Noel on Yarsani TIME (PTT) PROTHROMBIN TIME WITH INR 2020-06-08 02:15:00 Ruchi Kirkpatrick uston Yarsani CBC HEMOGRAM 2020-06-08 02:15:00 Latiff, Kelly López M ethodist POC GLUCOSE 2020-06-07 23:34:00 Vo, Juju López Meth odist POC GLUCOSE 2020-06-07 19:39:00 Vo, Juju Rene Meth odist XR CHEST 1 VW PORTABLE 2020-06-07 15:58:00 Julieta Brock on Yarsani POC GLUCOSE 2020-06-07 15:51:00 Vo, Juju López Meth odist PROTHROMBIN TIME WITH INR 2020-06-07 12:25:00 Ruchi Kirkpatrick uston Yarsani POC GLUCOSE 2020-06-07 11:32:00 Vo, Juju López Meth odist POC GLUCOSE 2020-06-07 07:24:00 Vo, Juju López Meth odist XR CHEST 1 VW PORTABLE 2020-06-07 04:06:00 PaulWalter Kayden beverlyye Yarsani POC GLUCOSE 2020-06-07 04:00:00 VoJuju odist BASIC METABOLIC PANEL 2020-06-07 01:59:00 LatiffKelly Trip ston Yarsani MAGNESIUM LEVEL 2020-06-07 01:59:00 LatiffKelly ethodist ESTIMATED GFR 2020-06-07 01:59:00 Latiff, Kelly Gutierrez ethodist PARTIAL THROMBOPLASTIN 2020-06-07 01:35:00 Tone Orellana Trip ston Yarsani TIME (PTT) CBC HEMOGRAM 2020-06-07 01:35:00 LatiffKelly ethodist ARTERIAL BLOOD GAS 2020-06-07 01:35:00 LatiffKelly n Yarsani POC GLUCOSE 2020-06-06 23:25:00 Vo, Juju Martins odist PARTIAL THROMBOPLASTIN 2020-06-06 18:15:00 Ruchi Kirkpatrick on Yarsani TIME (PTT) MAGNESIUM LEVEL 2020-06-06 18:15:00 RatvaldemariChrissy Meth odist POTASSIUM LEVEL 2020-06-06 18:15:00 RatnaniChrissy Meth odist PHOSPHORUS LEVEL 2020-06-06 18:15:00 RatnaniChrissy Met hodist IONIZED CALCIUM 2020-06-06 18:15:00 RatChrissy mckeon Meth odist POC GLUCOSE 2020-06-06 16:05:00 Vo, Juju López Meth odist BRONCHOSCOPY 2020-06-06 13:42:59 Jam Hoskins Yarsani XR CHEST 1 VW PORTABLE 2020-06-06 13:33:00 Tone Orellana Trip mortensen Yarsani AF[employer] CULTURE 2020-06-06 12:30:00 Vo, Juju López Meth odist FUNGUS CULTURE 2020-06-06 12:30:00 Vo, Juju López Meth odist POC GLUCOSE 2020-06-06 11:58:00 Vo, Juju Martins odist RESPIRATORY CULTURE 2020-06-06 11:30:00 Vo, Juju López Yarsani GRAM STAIN 2020-06-06 11:30:00 Vo, Juju López Meth odist AFB STAIN 2020-06-06 11:30:00 Vo, Juju López Meth odist PARTIAL THROMBOPLASTIN 2020-06-06 11:15:00 WantTone Yarsani TIME (PTT) HEMODIALYSIS 2020-06-06 08:30:54 Rashaun Amezcua López Meth odist Bharatkumar POC GLUCOSE 2020-06-06 07:28:00 Vo, Juju López Meth odist XR CHEST 1 VW PORTABLE 2020-06-06 05:09:52 Do, Tasneem barrios Yarsani PARTIAL THROMBOPLASTIN 2020-06-06 05:00:00 WantTone Yarsani TIME (PTT) POC GLUCOSE 2020-06-06 03:52:00 Vo, Juju López Meth odist ARTERIAL BLOOD GAS 2020-06-06 02:31:00 Do, Tasneem Gutierrez ethodist IONIZED CALCIUM 2020-06-06 01:26:00 Do, Tasneem Martins odist BASIC METABOLIC PANEL 2020-06-06 01:26:00 Do, Tasenem Wilson MAGNESIUM LEVEL 2020-06-06 01:26:00 Do, Tasneem López Meth odist PHOSPHORUS LEVEL 2020-06-06 01:26:00 Do, Tasneem Benjamin hodist ESTIMATED GFR 2020-06-06 01:26:00 Do, Tasneem López Meth odist CBC WITH PLATELET AND 2020-06-06 01:20:00 Do, Tasneem Hopeist DIFFERENTIAL MANUAL DIFFERENTIAL 2020-06-06 01:20:00 Do, Tasneem Wilson POC GLUCOSE 2020-06-05 23:49:00 Vo, Juju López Meth odist POC GLUCOSE 2020-06-05 19:46:00 Vo, Juju López Meth odist PARTIAL THROMBOPLASTIN 2020-06-05 19:22:00 WantTone Yarsani TIME (PTT) HEMOGLOBIN & HEMATOCRIT 2020-06-05 17:00:00 Tone Orellana Yarsani BASIC METABOLIC PANEL 2020-06-05 17:00:00 Walter Miller Yarsani ESTIMATED GFR 2020-06-05 17:00:00 Vo, Juju López Meth odist POC GLUCOSE 2020-06-05 15:35:00 Vo, Juju Martins odist TRANSFUSE RED BLOOD CELLS 2020-06-05 15:16:20 WantTone Yarsani XR CHEST 1 VW PORTABLE 2020-06-05 12:19:12 Tone Orellana festus Yarsani HEMOGLOBIN & HEMATOCRIT 2020-06-05 11:40:00 Tone Orellana Yarsani ARTERIAL BLOOD GAS 2020-06-05 11:40:00 Tone Orellana Yarsani POC GLUCOSE 2020-06-05 11:33:00 Vo, Juju Rene Martins odist ANTI XA, UNFRACTIONATED 2020-06-05 09:25:00 Vo, Juju belcher Yarsani PARTIAL THROMBOPLASTIN 2020-06-05 09:25:00 Vo, Juju Noel on Yarsani TIME (PTT) POC GLUCOSE 2020-06-05 07:35:00 Vo, Juju López Meth odist XR CHEST 1 VW PORTABLE 2020-06-05 05:41:11 Latiff, Kelly Kayden faye Yarsani POC GLUCOSE 2020-06-05 04:03:00 Vo, Juju Rene Martins odist BASIC METABOLIC PANEL 2020-06-05 02:07:00 Latiff, Kelly Trip mortensen Yarsani ESTIMATED GFR 2020-06-05 02:07:00 Latiff, Kelly Gutierrez ethodist MAGNESIUM LEVEL 2020-06-05 02:07:00 Latiff, Kelly Gutierrez ethodist PHOSPHORUS LEVEL 2020-06-05 02:07:00 LatiffKelly Yarsani ANTI XA, UNFRACTIONATED 2020-06-05 01:50:00 DoTasneem Yarsani CBC HEMOGRAM 2020-06-05 01:50:00 Latiff, Kelly Gutierrez ethodist ARTERIAL BLOOD GAS 2020-06-05 00:07:00 Latiff, Mónicanena Smithto n Yarsani POC GLUCOSE 2020-06-04 23:49:00 Vo, Juju López Meth odist POC GLUCOSE 2020-06-04 19:39:00 Vo, Juju Rene Meth odist ANTI XA, UNFRACTIONATED 2020-06-04 18:14:00 Vo, Juju Smith ton Yarsani PHOSPHORUS LEVEL 2020-06-04 16:00:00 Goldie Rashaunsamanta López Met hodist Bharatkumar MAGNESIUM LEVEL 2020-06-04 16:00:00 Rashaun Amezcua Meth odist Bharatkumar POTASSIUM LEVEL 2020-06-04 16:00:00 Rashaun Amezcua Meth odist Bharatkumar POC GLUCOSE 2020-06-04 15:44:00 Vo, Juju López Meth odist HEMODIALYSIS 2020-06-04 14:09:21 Rashaun Amezcua Meth odist Bharatkumar POC GLUCOSE 2020-06-04 12:07:00 Vo, Juju López Meth odist ANTI XA, UNFRACTIONATED 2020-06-04 10:55:00 Vo, Juju Hous ton Yarsani POC GLUCOSE 2020-06-04 07:42:00 Vo, Juju López Meth odist ANTI XA, UNFRACTIONATED 2020-06-04 04:30:00 Vo, Juju Smith ton Yarsani XR CHEST 1 VW PORTABLE 2020-06-04 04:10:00 Clair Arnett Yarsani ARTERIAL BLOOD GAS 2020-06-04 04:10:00 Clair Arnett POC GLUCOSE 2020-06-04 04:08:00 Vo, Juju López Eliezer odist LACTIC ACID LEVEL 2020-06-04 03:23:00 Walter Miller BASIC METABOLIC PANEL 2020-06-04 00:41:00 Latiff Kelly mortensen Yarsani CBC HEMOGRAM 2020-06-04 00:41:00 LatiffKelly ethodist MAGNESIUM LEVEL 2020-06-04 00:41:00 LatiffKelly ethodist TYPE AND SCREEN 2020-06-04 00:41:00 Kelly Ramírez ethodist ESTIMATED GFR 2020-06-04 00:41:00 LatiffKelly ethodist PREPARE RBC 2020-06-04 00:41:00 EstebanTone Md thodist XR CHEST 1 VW PORTABLE 2020-06-04 00:30:00 LatiffKelly Yarsani ARTERIAL BLOOD GAS 2020-06-04 00:18:00 LatiffKelly n Yarsani POC GLUCOSE 2020-06-04 00:07:00 Vo, Juju López Eliezer odist ANTI XA, UNFRACTIONATED 2020-06-03 21:35:00 Vo, Juju Smith ton Yarsani POC GLUCOSE 2020-06-03 19:59:00 Vo, Juju López Meth odist POC GLUCOSE 2020-06-03 16:08:00 Vo, Juju López Meth odist ANTI XA, UNFRACTIONATED 2020-06-03 14:30:00 Vo, Juju belcher Yarsani POC GLUCOSE 2020-06-03 12:08:00 Vo, Juju López Meth odist XR ABDOMEN 1 VW PORTABLE 2020-06-03 10:38:00 Kay Sumner stojun Yarsani ULTRAFILTRATION 2020-06-03 09:36:12 SutrioRashaun Meth odist Bharatkumar ARTERIAL BLOOD GAS 2020-06-03 09:30:00 Voore, Alana López Yarsani POC GLUCOSE 2020-06-03 08:04:00 Vo, Juju López Meth odist XR CHEST 1 VW PORTABLE 2020-06-03 04:26:31 Do, Tasneem barrios Yarsani POC GLUCOSE 2020-06-03 03:53:00 Vo, Juju López Eliezer odist COMPREHENSIVE METABOLIC 2020-06-03 02:48:00 Do, Tasneem belcher Yarsani PANEL MAGNESIUM LEVEL 2020-06-03 02:48:00 Do, Tasneem López Meth odist PHOSPHORUS LEVEL 2020-06-03 02:48:00 Do, Tasneem López Met hodist ESTIMATED GFR 2020-06-03 02:48:00 Do, Tasneem López Meth odist BILIRUBIN DIRECT 2020-06-03 02:48:00 Do, Tasneem López Met hodist ANTI XA, UNFRACTIONATED 2020-06-03 02:23:00 Do, Tasneem belcher Yarsani HC COMPLETE BLD COUNT 2020-06-03 02:23:00 Do, Tasneem barahona Yarsani W/AUTO DIFF PROTHROMBIN TIME WITH INR 2020-06-03 02:23:00 Do, Tasneem faye Yarsani POC GLUCOSE 2020-06-02 23:58:00 Vo, Juju López Meth odist XR CHEST 1 VW PORTABLE 2020-06-02 23:09:10 Do, Tasneem barrios Yarsani [place] INSERT NON-TUNNEL CV 2020-06-02 22:36:38 Do, Tasneem belcher Yarsani CATH POC GLUCOSE 2020-06-02 21:42:00 Vo, Juju López Meth odist XR CHEST 1 VW PORTABLE 2020-06-02 21:39:47 Do, Tasneem Hopeist BASIC METABOLIC PANEL 2020-06-02 21:33:00 Do, Tasneem Wilson HC COMPLETE BLD COUNT 2020-06-02 21:33:00 Do, Tasneem Wilson W/AUTO DIFF MAGNESIUM LEVEL 2020-06-02 21:33:00 Do, Tasneem López Meth odist PHOSPHORUS LEVEL 2020-06-02 21:33:00 Do, Tasneem Benjamin hodist PROTHROMBIN TIME WITH INR 2020-06-02 21:33:00 Do, Tasneem Wilson PARTIAL THROMBOPLASTIN 2020-06-02 21:33:00 Do, Tasneem barrios Yarsani TIME (PTT) ARTERIAL BLOOD GAS 2020-06-02 21:33:00 Do, Tasneem Gutierrez ethodist FIBRINOGEN 2020-06-02 21:33:00 Do, Tasneem López Meth odist ESTIMATED GFR 2020-06-02 21:33:00 Do, Tasneem Martins odist IONIZED CALCIUM, ARTERIAL 2020-06-02 21:33:00 Do, Tasneem Wilson CONSULT CARDIAC REHAB 2020-06-02 21:26:11 Do, Tasneem Wilson PHASE 1 ECG 12-LEAD 2020-06-02 21:24:33 Do, Tasneem López Meth odist ARTERIAL BLOOD GAS, 2020-06-02 20:28:00 Vo, Juju Wilson CORRECTED POTASSIUM, SYRINGE 2020-06-02 20:28:00 Vo, Juju Gutierrez ethodist SODIUM LEVEL, SYRINGE 2020-06-02 20:28:00 Vo, Juju Wilson IONIZED CALCIUM, ARTERIAL 2020-06-02 20:28:00 Vo, Juju Wilson HEMOGLOBIN, SYRINGE 2020-06-02 20:28:00 Vo, Juju Wilson LACTIC ACID, SYRINGE 2020-06-02 20:28:00 Vo, Juju Wilson GLUCOSE LEVEL, SYRINGE 2020-06-02 20:28:00 Vo, Juju Hopeist HEMOGLOBIN & HEMATOCRIT 2020-06-02 18:55:00 Vo, Juju Wilson PROTHROMBIN TIME WITH INR 2020-06-02 18:55:00 Vo, Juju Wilson PLATELET COUNT 2020-06-02 18:55:00 Vo, Juju López Meth odist FIBRINOGEN 2020-06-02 18:55:00 Vo, Juju López Meth odist ARTERIAL BLOOD GAS, 2020-06-02 18:23:00 Vo, Juju López Yarsani CORRECTED POTASSIUM, SYRINGE 2020-06-02 18:23:00 Vo, Juju López M ethodist SODIUM LEVEL, SYRINGE 2020-06-02 18:23:00 Vo, Juju Ocampo n Yarsani HEMOGLOBIN, SYRINGE 2020-06-02 18:23:00 Vo, Juju López Yarsani GLUCOSE LEVEL, SYRINGE 2020-06-02 18:23:00 Vo, Juju Noel on Yarsani IONIZED CALCIUM, ARTERIAL 2020-06-02 18:23:00 Vo, Juju Kayden neyda Yarsani PROTHROMBIN TIME WITH INR 2020-06-02 18:23:00 Vo, Juju Kayden ye Yarsani LACTIC ACID, SYRINGE 2020-06-02 18:23:00 Vo, Juju López Yarsani FIBRINOGEN 2020-06-02 18:23:00 Vo, Juju López Meth odist ROTATIONAL 2020-06-02 18:23:00 Vo, Juju López Meth odist THROMBOELASTOMETRY, EXTEM AFB CULTURE 2020-06-02 16:41:00 ChimacarioUri carreno Meth odist AFB CULTURE 2020-06-02 16:40:00 ZakUri carreno Meth odist SURGICAL PATHOLOGY REQUEST 2020-06-02 15:42:00 Vo, Juju Sage nisha Yarsani ANAEROBIC CULTURE 2020-06-02 15:41:00 CharismaUri delgado Me thodist FUNGUS CULTURE 2020-06-02 15:41:00 ZakUri carreno Meth odist AEROBIC CULTURE 2020-06-02 15:41:00 ChiUri delgado Meth odist FUNGUS SMEAR 2020-06-02 15:41:00 CharismaUri delgado Meth odist AFB STAIN 2020-06-02 15:41:00 ChimacarioUri carreno Meth odist ANAEROBIC CULTURE 2020-06-02 15:40:00 ZakUri carreno Me thodist FUNGUS CULTURE 2020-06-02 15:40:00 CharismaUri delgado Meth odist GRAM STAIN 2020-06-02 15:40:00 ZakUri carreno Meth odist AFB STAIN 2020-06-02 15:40:00 Chidanny, Ray López Meth odist TISSUE CULTURE 2020-06-02 15:40:00 Uri Nicole Eliezer chavez [place] AN ELECTIVE 2020-06-02 14:46:21 Rene Massey Met césar ENDOTRACHEAL AIRWAY [place] A ARTERIAL LINE 2020-06-02 14:44:12 Rene Massey Met césar Harley A ARTERIAL BLOOD GAS, 2020-06-02 14:31:00 Vo, Juju Wilson CORRECTED POTASSIUM, SYRINGE 2020-06-02 14:31:00 Vo, Juju Gutierrez ethodist SODIUM LEVEL, SYRINGE 2020-06-02 14:31:00 Vo, Juju Wilson IONIZED CALCIUM, ARTERIAL 2020-06-02 14:31:00 Vo, Juju Wilson HEMOGLOBIN, SYRINGE 2020-06-02 14:31:00 Vo, Juju Wilson GLUCOSE LEVEL, SYRINGE 2020-06-02 14:31:00 Vo, Juju Hopeist CYTOLOGY 2020-06-02 09:52:00 Vo, Juju chavez (NON-GYNECOLOGICAL) REQUEST HEMODIALYSIS 2020-06-02 07:39:58 Rashaun Amezcua odist Bharatkumar ANTI XA, UNFRACTIONATED 2020-06-02 03:46:00 Vo, Juju Wilson PROTHROMBIN TIME WITH INR 2020-06-02 03:46:00 Julieta Brock PARTIAL THROMBOPLASTIN 2020-06-02 03:46:00 Julieta Brock Yarsani TIME (PTT) HC COMPLETE BLD COUNT 2020-06-02 03:46:00 Vo, Juju Wilson W/AUTO DIFF BASIC METABOLIC PANEL 2020-06-02 03:46:00 Vo, Juju Wilson HEPATIC FUNCTION PANEL 2020-06-02 03:46:00 Vo, Juju Wilson ESTIMATED GFR 2020-06-02 03:46:00 Vo, Juju chavez ECHOCARDIOGRAM 2020-06-01 13:14:23 Ramu Alberto Me thodist TRANSESOPHAGEAL W DOPPLER COLORFLOW ANTI XA, UNFRACTIONATED 2020-06-01 04:35:00 Vo, Juju Wilson TRANSFUSE RED BLOOD CELLS 2020-05-31 17:12:49 Rashaun Amezcua Bharatkumar TRANSFUSE RED BLOOD CELLS 2020-05-31 16:13:36 Rashaun Amezcua Kayden Isaactkumar TYPE AND SCREEN 2020-05-31 13:30:00 Rashaun Amezcua Bhfranktkumar PREPARE RBC 2020-05-31 13:30:00 Rashaun Amezcua odnatalie Bharatkumar HEMODIALYSIS 2020-05-31 12:19:32 Rashaun Amezcua Bharatkumar COVID-19 QUALITATIVE PCR 2020-05-31 08:16:00 Clayton Carbajal Yarsani ANTI XA, UNFRACTIONATED 2020-05-31 04:13:00 Vo, Juju Hopeist HC COMPLETE BLD COUNT 2020-05-31 04:13:00 Vo, Juju Ocampo n Yarsani W/AUTO DIFF ANTI XA, UNFRACTIONATED 2020-05-30 15:00:00 Vo, Juju Smith ton Yarsani ANTI XA, UNFRACTIONATED 2020-05-30 08:52:00 Vo, Le Luis ton Yarsani HEMODIALYSIS 2020-05-30 06:13:48 Rashaun Amezcua sunnyist Bhfranktkumar HC COMPLETE BLD COUNT 2020-05-30 01:40:00 Vo, Juju Smithto n Yarsani W/AUTO DIFF BASIC METABOLIC PANEL 2020-05-30 01:40:00 Vo, Juju Ocampo n Yarsani ANTI XA, UNFRACTIONATED 2020-05-30 01:40:00 Vo, Juju belcher Yarsani ESTIMATED GFR 2020-05-30 01:40:00 Vo, uJju chavez PROTHROMBIN TIME WITH INR 2020-05-29 18:05:00 Vo, Juju Wilson TTE COMPLETE, W CONTRAST, 2020-05-29 09:50:45 Vo, Juju Wilson W DOPPLER ([id number]) PROTHROMBIN TIME WITH INR 2020-05-29 04:54:00 Vo, Juju Hopeist HC COMPLETE BLD COUNT 2020-05-29 04:54:00 Vo, Juju Smithto n Yarsani W/AUTO DIFF BASIC METABOLIC PANEL 2020-05-29 04:54:00 Vo, Juju Smithto n Yarsani ESTIMATED GFR 2020-05-29 04:54:00 Vo, Juju chavez ECG PRE/POST OP 2020-05-28 22:05:05 Emmy Benson Met hodist B NATRIURETIC PEPTIDE 2020-05-28 13:00:00 Emmy Benson on Yarsani TROPONIN 2020-05-28 13:00:00 Emmy Benson Met hodist HEMODIALYSIS 2020-05-28 09:27:17 JuliaRashaun pate López Meth odist Bharatkumar XR CHEST 1 VW PORTABLE 2020-05-28 08:49:05 Vo, Juju Noel on Yarsani PROTHROMBIN TIME WITH INR 2020-05-28 03:08:00 Vo, [...] Wilson SPUTUM CULTURE 2020-05-26 17:45:00 Vo, Juju chavez GRAM STAIN 2020-05-26 17:45:00 Vo, Juju chavez XR CHEST 1 VW PORTABLE 2020-05-26 13:55:00 Vo, Juju Noel on Yarsani HEMODIALYSIS 2020-05-26 07:36:17 JuliaRashaun pate Rene Meth odist Bharatkumar PROTHROMBIN TIME WITH INR 2020-05-26 04:04:00 Joseph Rivera Ebrahim HC COMPLETE BLD COUNT 2020-05-26 04:04:00 Vo, Juju Wilson W/AUTO DIFF BASIC METABOLIC PANEL 2020-05-26 04:04:00 Vo, Juju Wilson ESTIMATED GFR 2020-05-26 04:04:00 Vo, Juju chavez TRANSFUSE RED BLOOD CELLS 2020-05-25 19:24:47 Vo, Juju Wilson TYPE AND SCREEN 2020-05-25 14:15:00 Vo, Juju chavez PREPARE RBC 2020-05-25 14:15:00 Vo, Le López Meth odist HEMOGLOBIN & HEMATOCRIT 2020-05-25 11:41:00 Juju Boland ye Yarsani XR CHEST 1 VW PORTABLE 2020-05-25 09:05:00 Kimber Becerra on Yarsani POC GLUCOSE 2020-05-25 07:31:00 Juju Boland odist PARTIAL THROMBOPLASTIN 2020-05-25 04:25:00 Joseph Rivera on Yarsani TIME (PTT) Ebrahim PROTHROMBIN TIME WITH INR 2020-05-25 04:25:00 Joseph Rivera usye Yarsani Ebrahim PARTIAL THROMBOPLASTIN 2020-05-24 09:33:00 Joseph Rivera on Yarsani TIME (PTT) Ebrahim HEMODIALYSIS 2020-05-24 07:18:18 Rashaun Amezcua Meth odist Bharatkumar BASIC METABOLIC PANEL 2020-05-24 02:05:00 Joseph Rivera Yarsani Ebrahim HC COMPLETE BLD COUNT 2020-05-24 02:05:00 Joseph Rivera Yarsani W/AUTO DIFF Ebrahim MAGNESIUM LEVEL 2020-05-24 02:05:00 Joseph Rivera Meth odist Ebrahim PHOSPHORUS LEVEL 2020-05-24 02:05:00 Joseph Rivera Met hodist Ebrahim PROTHROMBIN TIME WITH INR 2020-05-24 02:05:00 Joseph Rivera Yarsani Ebrahim ESTIMATED GFR 2020-05-24 02:05:00 Joseph Rivera Meth odist Ebrahim SMEAR REVIEW 2020-05-24 02:05:00 Joseph Rivera Meth odist Ebrahim PARTIAL THROMBOPLASTIN 2020-05-24 01:15:00 Joseph Rivera on Yarsani TIME (PTT) Ebrahim PARTIAL THROMBOPLASTIN 2020-05-23 16:59:00 Joseph Rivera on Yarsani TIME (PTT) Ebrahim XR CHEST 1 VW PORTABLE 2020-05-23 11:57:34 Naldo Garcia on Yarsani PARTIAL THROMBOPLASTIN 2020-05-23 10:09:00 Joseph Rivera on Yarsani TIME (PTT) Ebrahim PROTHROMBIN TIME WITH INR 2020-05-23 10:09:00 Joseph Rivera Yarsani Ebrahim PARTIAL THROMBOPLASTIN 2020-05-23 08:35:00 Joseph Rivera on Yarsani TIME (PTT) Ebrahim PROTHROMBIN TIME WITH INR 2020-05-23 04:20:00 Joseph Rivera Yarsani Ebrahim BASIC METABOLIC PANEL 2020-05-23 04:20:00 Joseph Rivera Yarsani Ebrahim HC COMPLETE BLD COUNT 2020-05-23 04:20:00 Joseph Rivera Yarsani W/AUTO DIFF Ebrahim MAGNESIUM LEVEL 2020-05-23 04:20:00 Joseph Rivera Meth odist Ebrahim PHOSPHORUS LEVEL 2020-05-23 04:20:00 Joseph Rivera Met hodist Ebrahim PARTIAL THROMBOPLASTIN 2020-05-23 04:20:00 Joseph Rivera on Yarsani TIME (PTT) Ebrahim ESTIMATED GFR 2020-05-23 04:20:00 Joseph Rivera Meth odist Ebrahim XR CHEST 1 VW PORTABLE 2020-05-22 10:06:20 Naldo Garcia on Yarsani PROTHROMBIN TIME WITH INR 2020-05-22 04:30:00 Joseph Rivera Yarsani Ebrahim BASIC METABOLIC PANEL 2020-05-22 04:30:00 Joseph Rivera Yarsani Ebrahim HC COMPLETE BLD COUNT 2020-05-22 04:30:00 Joseph Rivera Yarsani W/AUTO DIFF Ebrahim MAGNESIUM LEVEL 2020-05-22 04:30:00 Joseph Rivera Meth odist Ebrahim PHOSPHORUS LEVEL 2020-05-22 04:30:00 Joseph Rivera Met hodist Ebrahim PARTIAL THROMBOPLASTIN 2020-05-22 04:30:00 Joseph Rivera on Yarsani TIME (PTT) Ebrahim ESTIMATED GFR 2020-05-22 04:30:00 Joseph Rivera Meth odist Ebrahim HEMODIALYSIS 2020-05-21 10:54:17 Rashaun Amezcua Meth odist Bharatkumar HC COMPLETE BLD COUNT 2020-05-21 04:00:00 Joseph Rivera Yarsani W/AUTO DIFF Ebrahim BASIC METABOLIC PANEL 2020-05-21 04:00:00 Joseph Riverato n Yarsani Ebrahim MAGNESIUM LEVEL 2020-05-21 04:00:00 Joseph Rivera Meth odist Ebrahim PHOSPHORUS LEVEL 2020-05-21 04:00:00 DoronbassamJoseph carreno López Met hodist Ebrahim PARTIAL THROMBOPLASTIN 2020-05-21 04:00:00 Joseph Rivera on Yarsani TIME (PTT) Ebrahim PROTHROMBIN TIME WITH INR 2020-05-21 04:00:00 Joseph Rivera Yarsani Ebrahim ESTIMATED GFR 2020-05-21 04:00:00 DoronbassamNoris carrenosuf Rene Meth odist Ebrahim XR CHEST 1 VW PORTABLE 2020-05-21 00:37:10 BiowNaldo on Yarsani XR CHEST 1 VW PORTABLE 2020-05-20 12:10:00 BiowNaldo on Yarsani HC COMPLETE BLD COUNT 2020-05-20 04:00:00 Joseph Rivera Yarsani W/AUTO DIFF Ebrahim BASIC METABOLIC PANEL 2020-05-20 04:00:00 Joseph Rivera n Yarsani Ebrahim MAGNESIUM LEVEL 2020-05-20 04:00:00 DoronbassamJoseph carreno López Meth odist Ebrahim PHOSPHORUS LEVEL 2020-05-20 04:00:00 DoronjocelynnNorisJoseph Rene Met hodist Ebrahim PROTHROMBIN TIME WITH INR 2020-05-20 04:00:00 Joseph Rivera uston Yarsani Ebrahim PARTIAL THROMBOPLASTIN 2020-05-20 04:00:00 Joseph Rivera on Yarsani TIME (PTT) Ebrahim ESTIMATED GFR 2020-05-20 04:00:00 LisaNorisJosephmarline López Meth odist Ebrahim XR CHEST 1 PORTABLE 2020-05-19 09:23:20 Naldo Garcia on Yarsani HEMODIALYSIS 2020-05-19 06:44:34 Rashaun Amezcua Meth odist Bharatkumar PARTIAL THROMBOPLASTIN 2020-05-19 05:25:00 Joseph Rivera on Yarsani TIME (PTT) Ebrahim HC COMPLETE BLD COUNT 2020-05-19 05:25:00 Joseph Rivera Yarsani W/AUTO DIFF Ebrahim BASIC METABOLIC PANEL 2020-05-19 05:25:00 Joseph Rivera Yarsani Ebrahim MAGNESIUM LEVEL 2020-05-19 05:25:00 LisaNorisJoseph Rene Meth odist Ebrahim PHOSPHORUS LEVEL 2020-05-19 05:25:00 Joseph Rivera Met hodist Ebrahim ESTIMATED GFR 2020-05-19 05:25:00 Joseph Rivera Meth odist Ebrahim XR CHEST 1 VW PORTABLE 2020-05-18 16:09:55 BiowNaldo on Yarsani XR CHEST 1 PORTABLE 2020-05-18 11:45:21 BioNaldo turner on Yarsani PARTIAL THROMBOPLASTIN 2020-05-18 04:45:00 Joseph Rivera on Yarsani TIME (PTT) Ebrahim PARTIAL THROMBOPLASTIN 2020-05-17 10:30:00 Joseph Rivera on Yarsani TIME (PTT) Ebrahim XR CHEST 1 VW PORTABLE 2020-05-17 08:30:00 BioNaldo turner on Yarsani VANCOMYCIN LEVEL, RANDOM 2020-05-17 04:00:00 Joseph Rivera ston Yarsani Ebrahim PARTIAL THROMBOPLASTIN 2020-05-17 03:50:00 Joseph Rivera on Yarsani TIME (PTT) Ebrahim PARTIAL THROMBOPLASTIN 2020-05-16 19:46:00 Joseph Rivera on Yarsani TIME (PTT) Ebrahim XR CHEST 1 PORTABLE 2020-05-16 16:58:40 VinodJulieta Bert on Yarsani HEMODIALYSIS 2020-05-16 16:11:15 JuliaRashaun pate Meth odist Bharatkumar GENERAL 2020-05-16 12:19:[address] CHEST WO CONTRAST 2020-05-16 09:09:28 JoshTomyfelicity Smitht on Yarsani Master BASIC METABOLIC PANEL 2020-05-16 05:30:00 Vo, Juju Smithto jun Yarsani PARTIAL THROMBOPLASTIN 2020-05-16 05:30:00 Lisa Joseph Bert on Yarsani TIME (PTT) Ebrahim ESTIMATED GFR 2020-05-16 05:30:00 RosaJoseph carreno Meth odist Ebrahim XR CHEST 1 VW PORTABLE 2020-05-15 13:20:47 Matt Layton Yarsani BASIC METABOLIC PANEL 2020-05-15 03:15:00 Vo, Juju barahona Yarsani PARTIAL THROMBOPLASTIN 2020-05-15 03:15:00 Lisa Josephmarline Noel on Yarsani TIME (PTT) Ebrahim ESTIMATED GFR 2020-05-15 03:15:00 RosaJoseph carreno Meth odist Ebrahim CBC HEMOGRAM 2020-05-15 03:15:00 Juju Boland odist HEMODIALYSIS 2020-05-14 09:26:06 JuliaRashaun pate Meth odist Bharatkumar XR CHEST 1 VW PORTABLE 2020-05-14 08:24:10 Matt Layton Yarsani CBC HEMOGRAM 2020-05-14 07:30:00 RosaNoris carrenosuf López Meth odist Ebrahim PROTHROMBIN TIME WITH INR 2020-05-14 06:05:00 Joseph Riveraton Yarsani Ebrahim PARTIAL THROMBOPLASTIN 2020-05-14 06:05:00 Lisa Josephmarline Noel on Yarsani TIME (PTT) Ebrahim BASIC METABOLIC PANEL 2020-05-14 04:00:00 Vo, Juju barahona Yarsani ESTIMATED GFR 2020-05-14 04:00:00 LisaNorisJoseph López Meth odist Ebrahim PARTIAL THROMBOPLASTIN 2020-05-13 23:20:00 Doronbassamev Joseph Noel on Yarsani TIME (PTT) Ebrahim POC GLUCOSE 2020-05-13 21:03:00 Vo, Juju Martins odist PARTIAL THROMBOPLASTIN 2020-05-13 17:00:00 Noris Riverasuf Luist on Yarsani TIME (PTT) Ebrahim XR CHEST 1 VW PORTABLE 2020-05-13 13:21:57 DonteJavier on Yarsani PROTHROMBIN TIME WITH INR 2020-05-13 05:42:00 RosaevJoseph Yarsani Ebrahim VANCOMYCIN LEVEL, RANDOM 2020-05-13 05:42:00 Vo, Juju mortensen Yarsani BASIC METABOLIC PANEL 2020-05-13 05:42:00 Vo, Juju barahona Yarsani PARTIAL THROMBOPLASTIN 2020-05-13 05:42:00 Vo, Juju Noel on Yarsani TIME (PTT) ESTIMATED GFR 2020-05-13 05:42:00 Vo, Juju Martins odist CBC HEMOGRAM 2020-05-13 05:42:00 DoronbassamNoris carrenosuf Rene Meth odist Ebrahim XR CHEST 1 VW PORTABLE 2020-05-12 21:28:00 DonteJavier on Yarsani POC GLUCOSE 2020-05-12 19:46:00 Vo, Juju López Meth odist POC GLUCOSE 2020-05-12 17:56:00 Vo, Juju López Meth odist XR CHEST 1 VW 2020-05-12 17:08:37 Abe Osei odist Nigel US INSERT PLEURA CATHETER 2020-05-12 16:45:00 Matt Layton AEROBIC CULTURE 2020-05-12 16:30:00 Julieta Brock odist ANAEROBIC CULTURE 2020-05-12 16:30:00 Julieta Brock thodist FUNGUS CULTURE 2020-05-12 16:30:00 Julieta Brock odist GRAM STAIN 2020-05-12 16:30:00 Julieta Brock AMYLASE LEVEL, MISC FLUID 2020-05-12 16:30:00 Julieta Brock GLUCOSE LEVEL, MISC FLUID 2020-05-12 16:30:00 Julieta Brock LDH, MISC FLUID 2020-05-12 16:30:00 VinodJulieta Meth odist CELL COUNT AND 2020-05-12 16:30:00 VinodJulieta Meth odist DIFFERENTIAL, BODY FLUID ALBUMIN, [facility] [place] FLUID 2020-05-12 16:30:00 VinodJulieta [facility]ani [facility] 2020-05-12 16:30:00 VinodJulieta Rene Wilson TRIGLYCERIDES, [facility] [place] FLUID 2020-05-12 16:30:00 VinodJulieta ye Yarsani PH, [facility] FLUID 2020-05-12 16:30:00 VinodJulieta Meth odist POC GLUCOSE 2020-05-12 12:45:00 Vo, Juju López Meth odist HEMODIALYSIS 2020-05-12 06:11:59 Rashaun Amezcua Rene Meth odist Bharatkumar HC COMPLETE BLD COUNT 2020-05-12 04:48:00 Joseph Rivera Yarsani W/AUTO DIFF Ebrahim BASIC METABOLIC PANEL 2020-05-12 04:48:00 Joseph Rivera n Yarsani Ebrahim MAGNESIUM LEVEL 2020-05-12 04:48:00 LisaJoseph López Meth odist Ebrahim PHOSPHORUS LEVEL 2020-05-12 04:48:00 LisaJoseph López Met hodist Ebrahim PROTHROMBIN TIME WITH INR 2020-05-12 04:48:00 Joseph Rivera uston Yarsani Ebrahim ESTIMATED GFR 2020-05-12 04:48:00 Lisa Joseph Rene Meth odist Ebrahim POC GLUCOSE 2020-05-11 20:32:00 Vo, Juju López Meth odist POC GLUCOSE 2020-05-11 17:17:00 Vo, Juju López Meth odist POC GLUCOSE 2020-05-11 12:08:00 Vo, Juju López Meth odist HEMODIALYSIS 2020-05-11 11:50:37 Rashaun Amezcua López Meth odist Bharatkumar POC GLUCOSE 2020-05-11 07:49:00 Vo, Juju López Meth odist HC COMPLETE BLD COUNT 2020-05-11 04:00:00 Joseph Rivreato n Yarsani W/AUTO DIFF Ebrahim BASIC METABOLIC PANEL 2020-05-11 04:00:00 Joseph Riverato n Yarsani Ebrahim MAGNESIUM LEVEL 2020-05-11 04:00:00 Joseph Rivera Meth odist Ebrahim PHOSPHORUS LEVEL 2020-05-11 04:00:00 Joseph Rivera Met hodist Ebrahim PROTHROMBIN TIME WITH INR 2020-05-11 04:00:00 Joseph Rivera [place]on Yarsani Ebrahim ESTIMATED GFR 2020-05-11 04:00:00 Joseph Rivera Meth odist Ebrahim PROTHROMBIN TIME WITH INR 2020-05-10 21:10:00 Joseph Rivera [place] Yarsani Ebrahim PARTIAL THROMBOPLASTIN 2020-05-10 21:10:00 Joseph Riverat on Yarsani TIME (PTT) Ebrahim POC GLUCOSE 2020-05-10 20:43:00 Joseph Rivera Meth odist Ebrahim POC GLUCOSE 2020-05-10 16:44:00 Joseph Rivera Meth odist Ebrahim HEPATITIS B SURFACE 2020-05-10 12:15:00 Goldie Rashaun López Yarsani ANTIGEN Bharatkumar POC GLUCOSE 2020-05-10 11:29:00 Joseph Rivera Meth odist Ebrahim ECG 12-LEAD 2020-05-10 08:23:12 Joseph Rivera Meth odist Ebrahim POC GLUCOSE 2020-05-10 08:01:00 Joseph Rivera Meth odist Ebrahim TROPONIN 2020-05-10 03:25:00 Joseph Rivera Meth odist Ebrahim BASIC METABOLIC PANEL 2020-05-10 03:25:00 Joseph Rivera Luisto n Yarsani Ebrahim MAGNESIUM LEVEL 2020-05-10 03:25:00 Joseph Rivera Meth odist Ebrahim PHOSPHORUS LEVEL 2020-05-10 03:25:00 Joseph Rivera Met hodist Ebrahim CD 4/8 SUBSET 2020-05-10 03:25:00 Joseph Rivera Meth odist Ebrahim VANCOMYCIN LEVEL, RANDOM 2020-05-10 03:25:00 Joseph Rivera Trip mortensen Yarsani Ebrahim ESTIMATED GFR 2020-05-10 03:25:00 Joseph Rivera Meth odist Ebrahim HC COMPLETE BLD COUNT 2020-05-10 03:15:00 Joseph Rivera Damaris barahona Yarsani W/AUTO DIFF Ebrahim W[place] CRITICAL CARE, E/M 2020-05-10 01:13:17 Leora Calloway 30-74 MINUTES Kae SPUTUM CULTURE 2020-05-09 23:57:00 Joseph Rivera Meth odist Ebrahim GRAM STAIN 2020-05-09 23:57:00 Joseph Rivera Meth odist Ebrahim HEMODIALYSIS 2020-05-09 21:10:43 GoldieRashaun Meth odist Bharatkumar ECG 12-LEAD 2020-05-09 20:22:31 Joseph Rivera Meth odist Ebrahim CT CHEST WO CONTRAST 2020-05-09 19:36:36 Leora Calloway BLOOD CULTURE, AEROBIC & 2020-05-09 18:00:00 Leora Calloway ANAEROBIC Kae INFLUENZA ANTIGEN TEST, 2020-05-09 18:00:00 Leora Calloway REFLEX NEGATIVE TO RPP Kae COVID-19 QUALITATIVE PCR 2020-05-09 18:00:00 Leora Calloway RESPIRATORY PATHOGEN PANEL 2020-05-09 18:00:00 Leora Calloway WITH COVID-19 Kae HC COMPLETE BLD COUNT 2020-05-09 18:00:00 Leora Calloway W/AUTO DIFF Kae PROTHROMBIN TIME WITH INR 2020-05-09 18:00:00 Leora Calloway PARTIAL THROMBOPLASTIN 2020-05-09 18:00:00 Leora Calloway on Yarsani TIME (PTT) Kae COMPREHENSIVE METABOLIC 2020-05-09 18:00:00 Leora Calloway Yarsani PANEL Kae TROPONIN 2020-05-09 18:00:00 Joseph Rivera Meth odist Ebodalysm B NATRIURETIC PEPTIDE 2020-05-09 18:00:00 Leora Calloway n Yarsani Kae ESTIMATED GFR 2020-05-09 18:00:00 Leora Calloway Meth odist Kae BLOOD CULTURE, AEROBIC & 2020-05-09 17:45:00 Leora Calloway ston Yarsani ANAEROBIC Kae XR CHEST 1 VW PORTABLE 2020-05-09 17:36:03 Leora Calloway on Yarsani Kae PTINR POC 2020-05-04 08:03:00 Manuel Devlin REPORT OF PROCEDURE - 2020-04-26 13:01:45 Provider, [facility] ENDOSCOPY SCAN [facility] ED ECG INTERPRETATION 2020-04-22 00:23:00 Mandy [facility] CBC W/PLT COUNT & AUTO 2020-04-21 22:30:00 Mandy [facility] BASIC METABOLIC PANEL (7) 2020-04-21 22:30:00 Mandy [facility] PT/APTT 2020-04-21 22:30:00 Mandy, [facility] B-TYPE NATRIURETIC FACTOR 2020-04-21 22:30:00 Mandy [facility] (BNP) [facility] TROPONIN I 2020-04-21 22:30:00 Mandy [facility] XR CHEST 2 VIEWS 2020-04-21 22:05:00 Mandy [facility] ECG 12-LEAD 2020-04-21 20:57:00 Mandy [facility] PTINR POC 2020-04-20 08:15:00 Manuel Devlin U/S ABDOMEN 2020-04-11 07:49:22 Gurinder Chand DIABETIC FOOT EXAM 2020-04-08 10:40:00 Gurinder Chand López Kovacs alth PTINR POC 2020-04-06 07:54:00 JessikeithManuel h CBC/DIFF 2020-03-25 09:20:00 Gurinder Chand [facility] CD4/CD8 RATIO GRP 2020-03-25 09:20:00 Gurinder Chand López Casiano lt COMPREHENSIVE METABOLIC 2020-03-25 09:20:00 Gurinder Chand [facility] PANEL HIV RNA VIRAL LOAD 2020-03-25 09:20:00 Gurinder Chand López Kovacs alth LIPID PROFILE 2020-03-25 09:20:00 Gurinder Chand López Barber h HEMOGLOBIN A1C 2020-03-25 09:20:00 Gurinder Chand López Hensleyt h CBC 2020-03-25 09:20:00 Gurinder Chand López Hensleyt h PTINR POC 2020-03-23 08:13:00 Manuel Devlin h RHYTHM STRIP - SCAN 2020-03-07 11:30:22 ProviderHeriberto [facility] [id number] 2020-03-05 00:00:00 ENCPL 8T6A84R 2020-03-05 00:00:00 ENCPL 1Q1J11H 2020-03-05 00:00:00 ENCPL 8D9A65L 2020-03-05 00:00:00 ENCPL 6Y3D75B 2020-03-05 00:00:00 ENCPL 5E8Z14E 2020-03-05 00:00:00 ENCPL 1X4D02Y 2020-03-05 00:00:00 ENCPL 7U4F97U 2020-03-05 00:00:00 ENCPL 4X5N59N 2020-03-05 00:00:00 ENCPL 3I5A58U 2020-03-05 00:00:00 ENCPL 0I2U91Q 2020-03-05 00:00:00 ENCPL 4L6X54B 2020-03-05 00:00:00 ENCPL 1K1W16C 2020-03-05 00:00:00 ENCPL 3V0J48O 2020-03-05 00:00:00 ENCPL 2S3U06M 2020-03-05 00:00:00 ENCPL 1X0W70Z 2020-03-05 00:00:00 ENCPL 7E3Q16H 2020-03-05 00:00:00 ENCPL 8Z7I77W 2020-03-05 00:00:00 ENCPL 7U9M86L 2020-03-05 00:00:00 ENCPL 0U7N69F 2020-03-05 00:00:00 ENCPL 4J1E19H 2020-03-05 00:00:00 ENCPL POCT-GLUCOSE METER 2020-03-03 15:17:00 Florencio Ocampo [facility] POCT-GLUCOSE METER 2020-03-03 12:24:00 Florencio Ocampo [facility] HEMODIALYSIS INPATIENT 2020-03-03 12:23:00 Selena Squires [facility] APTT 2020-03-03 09:05:00 Florencio Ocampo [facility] APTT 2020-03-03 06:33:00 Florencio Ocampo [facility] BASIC METABOLIC PANEL (7) 2020-03-03 04:20:00 Florencio Ocampo [facility] PROTHROMBIN TIME/INR 2020-03-03 04:20:00 Florencio Ocampo [facility] CBC W/PLT COUNT & AUTO 2020-03-03 04:19:00 Florencio Ocampo CH, I [facility] POCT-GLUCOSE METER 2020-03-02 21:17:00 Florencio Ocampo [facility] APTT 2020-03-02 20:45:00 Florencio Ocampo [facility] APTT 2020-03-02 18:38:00 Florencio Ocampo [facility] POCT-GLUCOSE METER 2020-03-02 16:57:00 Florencio Ocampo [facility] POCT-GLUCOSE METER 2020-03-02 11:53:00 Florencio Ocampo [facility] APTT 2020-03-02 11:29:00 Florencio Ocampo [facility] POCT-GLUCOSE METER 2020-03-02 08:16:00 Florencio Ocamporamakrishna [facility] APTT 2020-03-02 05:09:00 Florencio Ocamporamakrishna [facility] BASIC METABOLIC PANEL (7) 2020-03-02 05:08:00 Florencio Ocamporamakrishna [facility] CBC W/PLT COUNT & AUTO 2020-03-02 05:08:00 Florencio Ocampoliz WILIAM I [facility] PROTHROMBIN TIME/INR 2020-03-02 05:08:00 Justin Florencio Ahraamkrishna [facility] POCT-GLUCOSE METER 2020-03-01 23:01:00 Florencio Ocamporamakrishna [facility] APTT 2020-03-01 22:26:00 Mckennajose mchu Florencio Lai [facility] APTT 2020-03-01 15:10:00 Florencio Ocamporamakrishna [facility] PT/APTT 2020-03-01 15:10:00 Mckennajose mchu Florencio Lai [facility] HEMODIALYSIS INPATIENT 2020-03-01 12:40:00 Selena Squires [facility] BASIC METABOLIC PANEL (7) 2020-03-01 11:33:00 Mckennajose mchu Florencio Lai [facility] BASIC METABOLIC PANEL (7) 2020-03-01 05:43:00 Florencio Ocamporamakrishna [facility] CBC W/PLT COUNT & AUTO 2020-03-01 05:43:00 Florencio Ocamporamakrishna I [facility] PROTHROMBIN TIME/INR 2020-03-01 05:43:00 Mckennajose mFlorencio sageramakrishna [facility] APTT 2020-03-01 05:43:00 Mckennajose mchu Florencio Joelle [facility] APTT 2020-02-29 22:37:00 Florencio Ocamporamakrishna [facility] POCT-GLUCOSE METER 2020-02-29 22:19:00 Florencio Ocampo [facility] POCT-GLUCOSE METER 2020-02-29 15:25:00 Florencio Ocampo [facility] APTT 2020-02-29 15:17:00 Florencio Ocampo [facility] POCT-GLUCOSE METER 2020-02-29 11:38:00 Florencio Ocampo [facility] APTT 2020-02-29 09:03:00 Florencio Ocampo [facility] PROTHROMBIN TIME/INR 2020-02-29 09:03:00 Mihai Estrella [facility] BASIC METABOLIC PANEL (7) 2020-02-29 00:51:00 Florencio Ocampo [facility] CBC W/PLT COUNT & AUTO 2020-02-29 00:51:00 Florencio Ocampo CH I [facility] APTT 2020-02-29 00:51:00 Florencio Ocampo [facility] POCT-GLUCOSE METER 2020-02-28 23:48:00 Florencio Ocampo [facility] APTT 2020-02-28 18:36:00 Florencio Ocampo [facility] POCT-GLUCOSE METER 2020-02-28 18:03:00 Florencio Ocampo [facility] TRANSFUSION SERVICE REPORT 2020-02-28 18:00:38 Heriberto Rosario [facility] APTT 2020-02-28 17:12:00 Florencio Ocampo [facility] POCT-GLUCOSE METER 2020-02-28 12:02:00 Florencio Ocampo [facility] APTT 2020-02-28 10:56:00 Florencio Ocampo [facility] POCT-GLUCOSE METER 2020-02-28 06:38:00 Florencio Ocampo [facility] BASIC METABOLIC PANEL (7) 2020-02-28 04:31:00 Florencio Ocampo [facility] CBC W/PLT COUNT & AUTO 2020-02-28 04:31:00 Florencio Ocampo CH I [facility] POCT-GLUCOSE METER 2020-02-28 02:14:00 Florencio Ocampo [facility] FL FLUORO NON-SPECIFIC UP 2020-02-28 01:47:00 Stoney Callejas [facility] 1 HOUR [facility] ORIF,FEMUR 2020-02-27 23:58:00 Sukumar Callejas [facility] PROCEDURE W/ C-ARM 2020-02-27 23:58:00 Sukumar Callejas [facility] APTT 2020-02-27 19:46:00 Florencio Ocampo [facility] HEMODIALYSIS INPATIENT 2020-02-27 18:35:06 Selena Squires [facility] POCT-GLUCOSE METER 2020-02-27 17:44:00 Florencio Ocampo ramakrishna [facility] IRON, TIBC, % SAT. 2020-02-27 15:19:00 Selena Squires [facility] (WITHOUT FERRITIN) Medical Cent[facility] r FERRITIN 2020-02-27 15:19:00 Florencio Ocampo [facility] PLATELET COUNT 2020-02-27 12:30:00 Florencio Ocampo [facility] APTT 2020-02-27 12:30:00 Florencio Ocampo ramakrishna [facility] POCT-GLUCOSE METER 2020-02-27 12:01:00 Florencio Ocampo ramakrishna [facility] HEPATITIS B SURFACE 2020-02-27 10:18:00 Selena Squires [facility] ANTIBODY IDENTIFICATION 2020-02-27 08:56:00 Florencio Ocampo C [facility] XR WRIST 2 VIEWS LEFT 2020-02-27 08:49:00 Florencio Ocampoliz [facility] POTASSIUM 2020-02-27 07:53:00 Florencio Ocampo ramakrishna [facility] XR HIP 2 VIEWS LEFT 2020-02-27 07:02:00 Kay Peoples [facility] S [facility] XR PELVIS 1 OR 2 VIEWS 2020-02-27 06:56:00 Kay Peoples I [facility] POCT-GLUCOSE METER 2020-02-27 06:15:00 [facility] SARS-COV2/RT-PCR ([facility] & 2020-02-27 01:52:00 Michelle Caleb Carine [facility] REF LABS) [facility] CBC W/PLT COUNT & AUTO 2020-02-27 01:23:00 Caleb Martinez [facility] COMPREHENSIVE METABOLIC 2020-02-27 01:23:00 Michelle Caleb Carine [facility] PROTHROMBIN TIME/INR 2020-02-27 01:23:00 Caleb Martinez [facility] MAGNESIUM 2020-02-27 01:23:00 Michelle Caleb Carine [facility] PHOSPHORUS 2020-02-27 01:23:00 Michelle [facility] TYPE AND SCREEN, AUTOMATED 2020-02-27 01:23:00 Caleb Martinez [facility] PTINR POC 2020-02-24 07:48:00 Manuel Devlin h PTINR POC 2020-02-10 08:02:00 Manuel Devlin h PTINR POC 2020-01-27 07:59:00 Manuel Devlin h PTINR POC 2020-01-11 08:30:00 Manuel Devlin h PT/INR 2020-01-06 09:27:00 Manuel Devlin h HCV RNA QUANT, PCR 2019-12-25 08:26:00 Gurinder Chand CBC/DIFF 2019-12-25 08:26:00 Gurinder Chand Healt h CD4/CD8 RATIO GRP 2019-12-25 08:26:00 Gurinder Chanda lt COMPREHENSIVE METABOLIC 2019-12-25 08:26:00 Gurinder Chand is Health PANEL HIV RNA VIRAL LOAD 2019-12-25 08:26:00 Gurinder Chand [facility] HEPATITIS C GENOTYPE 2019-12-25 08:26:[address] [facility] B-TYPE NATRIURETIC PEPTIDE 2019-12-25 08:26:00 [facility] ([facility] PT/INR 2019-12-25 08:26:00 Gurinder Chand Healt h LIPID PROFILE 2019-12-25 08:26:00 Gurinder Chand Healt h CBC 2019-12-25 08:26:00 Gurinder Chand Healt h RBC MORPHOLOGY-WAM 2019-12-25 08:26:00 Gurinder Chand alth PTINR POC 2019-11-25 08:14:00 Manuel Devlin Healt h CBC/DIFF 2019-11-04 08:16:00 Gurinder Chand Healt h COMPREHENSIVE METABOLIC 2019-11-04 08:16:00 Gurinder Chand is Health PANEL SYPHILIS SCREEN FOR 2019-11-04 08:16:00 Gurinder Chand ealth INFECTION HIV RNA VIRAL LOAD 2019-11-04 08:16:00 Gurinder Chand He alth CD4/CD8 RATIO GRP 2019-11-04 08:16:00 Gurinder Chand a lt HEMOGLOBIN A1C 2019-11-04 08:16:00 Gurinder Chand Healt h B-TYPE NATRIURETIC PEPTIDE 2019-11-04 08:16:00 [facility] (B[facility] CBC 2019-11-04 08:16:00 Gurinder Chand Healt h PTINR POC 2019-10-28 08:08:00 Manuel Devlin [facility] 0S2L10S 2019-01-08 00:00:00 ENCPL 7H6V29L 2019-01-08 00:00:00 ENCPL 3D9B86E 2019-01-08 00:00:00 ENCPL 5I8Q93Q 2019-01-08 00:00:00 ENCPL Plan of Care Planned Activity Planned Date Details Comments Source Future Scheduled 2023-03-[address] [facility] Test 00:00:00 (procedure) [code = Medical Center 78721772] Future Scheduled 2021-04-08 DM Foot Exam (Yearly) [facility] 00:00:00 [code = DM Foot Exam (Yearly)] Future Scheduled 2021-03-25 Hemoglobin A1c [facility] Test 00:00:00 measurement (procedure) [code = 83964823] Future Scheduled 2020-11-09 COVID-19 Vaccine (2 of [facility] Test 00:00:00 2 - Moderna series) [code = COVID-19 Vaccine (2 of 2 - Moderna series)] Future Scheduled 2020-06-17 DM Retinal Exam [facility] Test 00:00:00 (Yearly) [code = DM Retinal Exam (Yearly)] Future Scheduled 2020-06-02 IMM Influenza Seasonal [facility] Test 00:00:00 Oct to October (>/= 19 yrs) [code = IMM Influenza Seasonal Oct to October (>/= 19 yrs)] Future Scheduled 2020-05-03 INFLUENZA VACCINE (#1) [facility]:00 [code = INFLUENZA Medical Ce nter VACCINE (#1)] Future Scheduled 2020-01-[address] [facility] - Test 00:00:00 malignant neoplasm of Medica l Center colon (procedure) [code = 066128631] Future Scheduled 2019-06-[address] [facility] Test 00:00:00 [facility] (procedure) [code = 78511390] Future Scheduled 2018-12-02 DIABETES: RETINAL EYE [place] [facility] Test 00:00:00 EXAM [code = DIABETES: RETINAL EYE EXAM] Future Scheduled 2018-11-22 Urine screening for [facility] 00:00:00 protein (procedure) [code = 886215845] Future Scheduled 2018-08-[address] [...] Future Scheduled 2007-04-24 COLONOSCOPY SCREENING [place] [facility] Test 00:00:00 [code = COLONOSCOPY SCREENING] Future Scheduled 2007-04-24 SHINGLES VACCINES (#1) [place] [facility] Test 00:00:00 [code = SHINGLES VACCINES (#1)] Future Scheduled 2007 [facility] 00:[facility]:00 malignant neoplasm of colon (procedure) [code = 925275301] Future Scheduled 2007 [facility] 00:00:00 malignant neoplasm of colon (procedure) [code = 396851173] Future Scheduled 2007 [facility] 00:00:00 malignant neoplasm of colon (procedure) [code = 559702502] Future Scheduled 2007 [facility] 00:00:00 malignant neoplasm of colon (procedure) [code = 267071044] Future Scheduled 2007 [facility] for [facility] Test 00:00:00 malignant neoplasm of colon (procedure) [code = 211393959] Future Scheduled 1973-04-24 COVID-19 VACCINE (1 of [facility] [place] [facility] 00:00:00 2) [code = COVID-19 VACCINE (1 of 2)] Future Scheduled 1967-04-24 DIABETIC FOOT EXAM [place] [facility] 00:00:00 [code = DIABETIC FOOT EXAM] Future Scheduled 1967 DIABETIC EYE EXAM [facility] - Test 00:00:00 [code = DIABETIC EYE Medical Center EXAM] Future Scheduled [address] [facility] Test 00:00:00 examination Medical Center (regime/therapy) [code = 328800587] Future Scheduled 1967 Urine screening for [facility] - Test 00:00:00 protein (procedure) Medical Center [code = 986618339] Encounters Start End Encounter Admission Attending Care Care Encounter Source Date/Time Date/Time Type Type Clinicians Facility Department ID 2020-07-06 Outpatient READMISUSIE SHER, ENCCLR ENCCLR [id number] ENCCLR 21:26:21 N MELVIN 2020-10-20 2020-10-20 Outpatient [facility] [id number] [place] 00:00:00 00:00:00 [facility] 2020-10-20 2020-10-20 Outpatient [facility] [id number] [place] 00:00:00 00:00:00 [facility] 2020-10-06 2020-10-06 Outpatient [facility] [id number] [place] 11:11:47 11:11:47 [facility] 2020-05-09 2020-06-28 Inpatient VO, LE [facility] [id number] [place] 00:00:00 00:00:[address] 2019-11-09 2019-11-09 Outpatient [facility] MED [id number] [facility] 08:51:00 08:51:00 2019-09-12 2019-09-12 Emergency MUÑOZ, [facility] [id number] [place] 00:00:00 00:00:00 [facility] 2017-11-18 2017-11-20 Inpatient C AMIE, [facility] MED [id number] [facility] 13:43:00 13:54:00 MAYLIN 2017-11-07 2017-11-07 Emergency E [facility] MED [id number] [facility] 20:22:00 20:22:00 2017-10-06 2017-10-06 Emergency E ELIANA, [facility] MED [id number] [facility] 14:25:00 14:25:00 [facility] Results Test Description Test Time Test Comments Results Result Comments Source POCT PTINR POC docked device 2020-10-06 11:34:00 Test Item Value Reference Range Interpretation Comme nts PT POC (test code = 15.2 See_Comment H [Automa jayla message] The [id number]) system which ge nerated this result transmit jayla reference range: 10.9 - 1 3.0 Seconds. The reference r sylvia was not used to interpr et this result as kait l/abnormal. INR POC (test code = 1.3 Refer to INR SUGGEST ED THERAPEUTIC 62647572) therapeutic ranges RANGES: I NR 2.0-3.0 for MODERATE INTENS ITY ANTICOAGULATION INR 2.5-3.5 for HIGH INTENS ITY ANTICOAGULATION Lab Interpretation (test Abnormal code = 16986-9) [facility] [id number] 19:14:07IMPRESSION:1. Heterogenous/coarsened echotexture with increased echogenicity ofthe liver is suggestive of hepatocellular dysfunction in the setting ofhepatitis C with concurrent hepatic steatosis. No focal hepatic lesions.2. 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 Hyperechoic lesions adjacent to the gallbladder wall are nonspecificand may represent small polyps and/or stones. No acute cholecystitis. If the report is "FINALIZED" it indicates that the attendi ng/staffradiologist has reviewed the images and agrees with the resident'sinterpretation. Dictated By: Anup Cash, 09/23/2020 8:20 AM I have reviewed the study and agree with the findings in this report. Signed By: Sharath Guallpa MD, 09/25/2020 7:14 PM Interface, Rad/Mammog In - 09/25/2020 7:19 PM CST EXAM: Complete Abdominal UltrasoundINDICATION: HCV, cirrhosis COMPARISON: Abdominal ultrasound 04/11/2020 TECHNIQUE: Transverse and longitudinal images of the upper abdomen wereobtained. FINDINGS: Liver: Size: 17 cm in the right midc lavicular line, enlarged. Appearance: Coarsened echotexture, increased echogenicity, smoothcontour. Mass: No focal masses.Spleen: Size: 12 cm in length, normal in size. Echogenicity:Normal. Mass: No focal masses.Gallbladder: Stones/Sludge: Mobile hyperechoic, homogenous foci. However, thereis no clear posterior acoustic shadowing or twinkle artifact on colorDoppler. Wall: 0.2 cm. Appearance: No pericholecystic fluid or hydrops. Sonographic Guzmán's Sign: Negative.Bile Ducts: Intrahepatic Ducts: No dilatation. Extrahepatic Ducts: Common bile duct measures 0.5 cm, nodilatation.Pancreas: Increased echogenicity in the visualized portions of the pancreatichead, neck and proximal body.Right Kidney: Size: 8 cm (in length). Echogenicity: Thin and echogenic. Parenchymal thickness: Normal. Collecting System: No hydronephrosis. Stone:None. Cyst/Mass: None. Left Kidney: Size: 8 cm (in length). Echogenicity: Thin and echogenic. Parenchymal thickness: Normal. Collecting System: No hydronephrosis. Stone: None. Cyst/Mass: None.Vessels: Aorta: Visualized portions are normal. Inferior Vena Cava: Visualized portions are normal. Main Portal Vein: 1.3 cm, normal in size with hepatopetalflow.Free Fluid: No ascites or pleural effusion.IMPRESSIONIMPRESSION:1. Heterogenous/coarsened echotexture with increased echogenicity ofthe liver is suggestive of hepatocellular dysfunction in the setting ofhepatitis C with concurrent hepatic steatosis. No focal hepatic lesions.2. 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 Hyperechoic lesions adjacent to the gallbladder wall are nonspecificand may represent small polyps and/or stones. No acute cholecystitis.If the report is "FINALIZED" it indicates that the attending/staffradiologist has reviewed the images and agrees with the resident'sinterpretation.Dictated By: Anup Cash, 09/23/2020 8:20 ANTOLIN limon r eviewed the study and agree with the findings in this report.Signed By: Sharath Guallpa MD, 09/25/2020 7:14 [facility] [id number] 00:13:31 Test Item Value Reference Range Interpretation Comments AFB culture No growth Specimen isolate (test after 6 weeks InformationSp ecimen code = 543-9) of Source: Bronch ial alveolar incubation. lavageSpecimen Site: RLL (Right Lower Lo be) L[facility] [id number] 00:15:24 Test Item Value Reference Range Interpretation Comments Fungus culture No growth Specimen isolate (test after 4 weeks InformationSp ecimen code = 1441) of Source: Bronchi al alveolar incubation. lavageSpecimen Site: RLL (Right Lower Lo be) [place] [facility] [id number] 18:19:01 Test Item Value Reference Range Interpretation Comments POC glucose (test code 139 mg/dL 65-99 H Opera tor Name: Jesus = [id number]) FerminaDevicestee ID : [id number] able: [facility] Notified customer account executive Interpretation Abnormal (test code = 32016-6) López [facility] metabolic [id number] 03:43:32 Test Item Value Reference Range Interpretation Comments Sodium (test code = 130 See_Comment L [Automa jayla message] 2951-2) The system [employer] generated this result transmit jayla reference range : 135 - 148 mEq/L. Th e reference range was not used to interpret this result as normal/abnormal . Potassium (test code = 4.1 See_Comment [Aut omated message] 2823-3) The system [employer] generated this result transmit jayla reference range : 3.5 - 5.0 mEq/L. Th e reference range was not used to interpret this result as normal/abnormal . Chloride (test code = 93 See_Comment L [Auto mated message] 5-0) The system [employer] generated this result transmit jayla reference range : 98 - 112 mEq/L. Th e reference range was not used to interpret this result as normal/abnormal . CO2 (test code = 27 See_Comment [Automated message] 2027-9) The system [employer] generated this result transmit jayla reference range : 24 - 31 mEq/L. The reference range was not used to interpret this result as normal/abnormal . Anion gap (test code = 10@ANIO See_Comment [Aut omated message] 00702-9) The system [employer] generated this result transmit jayla reference range : 7 - 15 mEq/L. The reference range was not used to interpret this result as normal/abnormal . BUN (test code = 28 mg/dL 8-23 H 3094-0) Creatinine (test code = 3.34 mg/dL 0.7-1.2 H 2160-0) Glucose (test code = 104 mg/dL 65-99 H 2345-7) Calcium (test code = 9.8 mg/dL 8.8-10.2 69775-7) Lab Interpretation Abnormal (test code = 92844-0) [place] MethodistEstimated [id number] 03:43:31 Test Item Value Reference Range Interpretation Comments Estimated GFR (test 21 mL/min/1.73 m2 Ev angelo Units code = 5488) InterpretationG 1 >=90 Kait l or highG2 60-89 Mildly decrease dG3a 45-59 Mil dly to moderately decr yvwtdZ5x 30-44 Moderately to s everely decreasedG4 15-29 Severe ly decreasedG5 <15 Kidney blanco lureThe eGFR was calcul ated using the Chron ic Kidney Disease Epidemiology Collaboration ( CKD-EPI) equation. Interpretation is based on recommendati ons of the National [facility]-Kidn ey Disease Outcome s Quality Initiat samreen (NKF-KDOQI) pub lished in 2013. Lab Interpretation Abnormal (test code = 92746-4) [place]pez MethodistProthrombin time with QBZ3022-79-79 03:30:25 Test Item Value Reference Range Interpretation Comments Prothrombin time (test 27.5 See_Comment H [Aut omated message] code = 5902-2) The system [employer] ich generated this result transmitted ref erence range: 11.5 - 1 4.5 sec. The refere nce range was not u sed to interpret this result as normal/abnor mal. INR (test code = 2.5 The Interna tional 24727-4) Normalized Rati o (INR) is a therapeuti c monitoring tool for patients who ar e stable on oral anticoagulant t herapy. An INR of 2.0-3 .0 is suggested for d eep vein thrombosis/pulm onary embolism. Lab Interpretation Abnormal (test code = 85925-1) [place] MethodistCBC with platelet and qlucernkfzuz8975-86-66 03:21:59 Test Item Value Reference Range Interpretation Comments WBC (test code = 7.14 See_Comment [Automated message] 97661-0) The system [employer] generated this result transmit jayla reference range : 4.50 - 11.00 k/ uL. The reference r sylvia was not used to interpret this result as normal/abnormal . RBC (test code = 2.52 m/uL 4.4-6 L 57731-0) HGB (test code = 718-7) 8.2 g/dL 14-18 L HCT (test code = 4544-3) 26.4 % 41-51 L MCV (test code = 787-2) 104.8 fL 82-100 H MCH (test code = 785-6) 32.5 pg 27-34 MCHC (test code = 786-4) 31.1 g/dL 31-37 RDW - SD (test code = 68.6 fL 37-55 H 60068-1) MPV (test code = 8.4 fL 8.8-13.2 L 35577-1) Platelet count (test 192 See_Comment [Autom ated message] code = 01680-0) The system w hich generated this result transmit jayla reference range : 150 - 400 k/uL. The reference range was not used to interpret this result as normal/abnormal . Nucleated RBC (test code 0.00 See_Comment [A utomated message] = 95802-0) The system whic h generated this result transmit jayla reference range : /100 WBC. The reference range was not used to interpret this result as normal/abnormal . Neutrophils (test code = 66.7 % 39-69 06817-9) Lymphocytes (test code = 17.1 % 25-45 L 72034-2) Monocytes (test code = 12.7 % 0-10 H 47714-2) Eosinophils (test code = 2.1 % 0-5 41836-7) Basophils (test code = 0.7 % 0-1 49431-7) Immature granulocytes 0.7 % 0-1 "Immat ure (test code = 25299-4) granul ocytes" (promyelocytes, myelocytes, metamyelocytes) Lab Interpretation (test Abnormal code = 30749-1) [place] MethodistPotassium icmrp7087-24-77 17:36:39 Test Item Value Reference Range Interpretation Comments Potassium (test code = 4.3 See_Comment [Aut omated message] The 2823-3) system which ge nerated this result tra nsmitted reference range : 3.5 - 5.0 mEq/L. The reference range was not u sed to interpret this result as normal/abnormal . [place] MethodistCT Chest Wo Vcofpcpd3368-84-91 13:38:48Hm Interface, Radiology Results Incoming - 06/27/2020 1:42 PM CDTEXAMINATION:CT CHEST WO CONTRASTCLI [...] atelectasis, although superimposed pneumonia cannot be excluded.. [facility]-[id number] MethodistCOVID-19 qualitative XRQ7297-84-70 10:30:49 Test Item Value Reference Range Interpretation Comments Interpretation (test Negative results do code = 0610645) not preclude 2019-nCoV infection and should not be used as the sole basis for treatment or other patient management decisions. Negative results must be combined with clinical observations, patient history, and epidemiological information. COVID-19 qualitative Not-Detected Not-Detected PCR result (test code = 65385-1) COVID-19 qualitative See link below for C ase Number: PCR (test code = PDF Lab Report [id number]) Rene HopeistSmear phelmj3784-28-28 08:16:12 Test Item Value Reference Range Interpretation Comments Platelet slide review Cayla adequate (test code = 16102-4) Anisocytosis (test code = Moderate 702-1) Polychromasia (test code Moderate = 83860-2) Ovalocytes (test code = Moderate 774-0) ALVIN (test code = ALVIN) K results called to and read back by MILTON MILLER/JARET(name/loc ation)at 06/27/2020 07:42 (date/time) by PR1. Rene WilsonXR Chest 1 Egtgnaju8150-02-34 01:23:35Hm Interface, Radiology Results Incoming - 06/27/2020 1:26 AM CDTExamination: XR CHEST 1 PORTABLEClinical history: "fever" Comparison: 06/23/2020 IMPRESSION: Indwelling support lines/tubes appear g enerally stable in position.Pulmonary venous congestion and bilateral perihilar and lower lung pulmonary infiltrates are seen which have worsened from the previous study. Blunting of the costophrenic angles is compatible with minimal pleural fluid or scarring. No pneumothoraces are identified.The cardi omediastinal silhouette is unchanged. The bones of the chest are unchanged. [facility]ACoreen MethodistPartial thromboplastin time, shxxkeowh8563-43-77 07:18:58 Test Item Value Reference Range Interpretation Comments PTT (test code = 132.2 See_Comment PTT therape [facility] range 17561-8) for unfractiona jayla heparin is61.0- 112.0 seconds which corresponds to Anti-Xa0.3-0.7 U/ml.PTT_result s called to and r ead back by GILMAR LORENZO/WT1Rika (name/location) at 06/26/2020 07: 18 ___(date/time) by FREDY_. [Automat ed message] The sy stem which generated this result transmit jayla reference range : 23.0 - 36.0 sec. The reference range was not used to int erpret this result as normal/abnormal . Lab Interpretation Abnormal (test code = 11287-1) [place] MethodistMagnesium ijjwm4923-86-33 07:07:44 Test Item Value Reference Range Interpretation Comments Magnesium (test code = 44282-3) 2.0 mg/dL 1.6-2.4 [place] MethodistPhosphorus ogqdp7748-23-07 07:07:43 Test Item Value Reference Range Interpretation Comments Phosphorus (test code = 2777-1) 2.6 mg/dL 2.4-4.5 [place] JayyistPrepare RBC, 1 Bzmpv3966-25-07 14:54:00 Test Item Value Reference Range Interpretation Comments Product name (test code Red Blood Cells -1, = 25) Leukored Unit number (test code [id number] = 1930057) Product code (test code W9072L82 = 3092) Dispense status (test Transfused code = 24) Blood expiration date (test code = 302) Blood type code (test 8400 code = 308) Blood type (test code = AB POSITIVE 1314) Compatibility (test Compatible code = 6400) [place] MethodistType and gvsgkm5124-46-96 11:23:00 Test Item Value Reference Range Interpretation Comments ABO grouping (test code = 883-9) AB Rh type (test code = 75816-9) POS Antibody screen (gel) (test code = NEG 890-4) [place] MethodistParathyroid odrbuvn4946-74-29 03:23:40 Test Item Value Reference Range Interpretation Comments PTH (test code = 2731-8) 53 pg/mL 15-65 [place] MethodistCBC ihdpxhce6151-74-40 03:07:56 Test Item Value Reference Range Interpretation Comments WBC (test code = 5.81 See_Comment [Automated message] 76931-0) The system [employer] generated this result transmit jayla reference range : 4.50 - 11.00 k/ uL. The reference r sylvia was not used to interpret this result as normal/abnormal . RBC (test code = 2.19 m/uL 4.4-6 L 66326-6) HGB (test code = 718-7) 7.1 g/dL 14-18 L HCT (test code = 4544-3) 23.4 % 41-51 L MCV (test code = 787-2) 106.8 fL 82-100 H MCH (test code = 785-6) 32.4 pg 27-34 MCHC (test code = 786-4) 30.3 g/dL 31-37 L RDW - SD (test code = 72.3 fL 37-55 H 93791-2) MPV (test code = 8.4 fL 8.8-13.2 L 22468-0) Platelet count (test 145 See_Comment L [Autom ated message] code = 86788-7) The system [employer] generated this result transmit jayla reference range : 150 - 400 k/uL. The reference range was not used to interpret this result as normal/abnormal . Nucleated RBC (test code 0.00 See_Comment [A utomated message] = 90155-3) The system [employer] generated this result transmit jayla reference range : /100 WBC. The reference range was not used to interpret this result as normal/abnormal . Lab Interpretation (test Abnormal code = 54150-9) [place] MethodistSpirometry, nagsqtjzo2665-42-91 15:26:26 Test Item Value Reference Range Interpretation [...] Predicted (test code = 64.1 % 5368) [place] MethodistManual wjmcupbzakwd7072-41-13 08:39:52 Test Item Value Reference Range Interpretation Comments Manual differential (test code = PERFORMED 33531-0) Neutrophils (test code = 71.0 % 39-69 H 83274-6) Lymphocytes (test code = 9.0 % 25-45 L 61250-8) Monocytes (test code = 23375-1) 13.0 % 0-10 H Eosinophils (test code = 4.0 % 0-5 92902-7) Basophils (test code = 61441-1) 0.0 % 0-1 Metamyelocytes (test code = 0 % 740-1) Myelocytes (test code = 749-2) 3 % Promyelocytes (test code = 0 % 783-1) Platelet slide review (test code Cayla adequate = 93327-0) Anisocytosis (test code = 702-1) Moderate Polychromasia (test code = Moderate 75105-3) Lab Interpretation (test code = Abnormal 12447-2) [place] MethodistPeripheral Spcgh1191-01-46 10:15:57Julieta Sevilla MD 06/17/2020 10:35 AMPeripheral Block [...] and 10 cc 2%Lidocaine used for Supraclavicular lmwjr98jq 0.5% Ropivacaine used for Musculocutaneous nerve block [place] MethodistXR Abdomen 1 Sa9916-31-67 16:28:25Hm Interface, Radiology Results Incoming - 06/16/2020 4:31 PM CDTEXAMINATION: XR ABDOMEN 1 VWCLINICAL HISTORY: constipation ileus COMPARISON: 06/13/2020IMPRESSION:1.Bowel gas pattern nonobstructive. Mild retained stool in the colon. The degree of retained stool has slightly increased compared to study of 06/13/2020. No free air.2.Changes at the lung bases as well as osseous structures stable.Rene Masterson 12 uzvx8195-18-60 11:46:43 Test Item Value Reference Range Interpretation Comments Ventricular rate (test 103 code = 253) Atrial rate (test code = 103 255) [place] interval (test code = 192 266) QRSD [...] wave abnormality--Electro nically Signed By Claribel Solorzano ([id number]) on 06/15/2020 11:46:36 AM [place] YoevbabgnYnzknrhk2104-77-09 19:39:05 Test Item Value Reference Range Interpretation Comments Troponin (test code 0.034 ng/mL 0-0.04 In patie nts suspected = 38187-5) of having a jewel cardial infarction, farrukh [...] decreased by le ss than 0.020 ng/mL [facility] Vzzpbcmy2460-64-59 21:53:19Hm Interface, Radiology Results 06/13/2020 9:56 PM [...] to ensure regression.4.Other chronic findings as noted above.1D2RAD_PS04[facility] MethodistXR Abdomen 1 Lkccittr7389-53-97 14:29:07Hm Interface, Radiology Results /12/2020 2:32 PM CDTStudy:XR ABDOMEN 1 VW PORTABLEHistory:left flank painCOMPARISON:None.IMPRESSION:3 views of the abdomen. Nonspecific calcific density overlying the left 11th rib measures 7 mm. This could be a renal stone. No calcifications on the right.Contrast seen within the colon. No bowel distention. Air-filled small bowel loops are nondistended in the left lower quadrant. Bones are stable.1D2RAD_PS07[facility] MethodistUs duplex hemodialysis avg avf jkycxs2095-25-14 19:26:00Interface, Radiology Results In - 06/10/2020 7:27 PM CDT Vascular Ultrasound Laboratory AV Graft - Fistula Report [address]Name: CALEB LUGO.ID: [id number] .Date: 06/10/2020 Refer.MD: JUJU BOLAND MD Exam Time: 2:34:00 PM Study Type:AV Graft - Fistula Height: 67in Weight: 143lb BSA: 1.75 m2 Age: 804/24/1955,65Y Sex: MALE Sonogrphr: Perez Vi, RVT Pat. Stat.:Inpatient Room: [address] Vol: , CPT - 4: 17454 Echo Event ID:[id number] Order ID: [id number] Reason for Study:Patient has bleeding fistula. History [...] anastomosis (ratio 1.90). FINDINGS:--------- Signed 06/10/2020 07:26 Tarhsa Blankenship MD, RPVI [place] MethodistFerritin rmowy6426-43-90 05:00:54 Test Item Value Reference Range Interpretation Comments Ferritin level (test code = 4002 ng/mL 30-400 H 2276-4) Lab Interpretation (test code = Abnormal 21729-5) López MethodistTotal iron binding kcokmfwj5024-68-84 04:36:28 Test Item Value Reference Range Interpretation Comments Iron level (test code 107 ug/dL 59-158 = 2498-4) Iron binding capacity SEE COMMENT 200-400 Unable to calculate (test code = 2500-7) due to too low analyte concentration. % Saturation (test SEE COMMENT 20-40 Unable to calculate code = 2502-3) due to low an alyte concentration. [place] MethodistHemoglobin & thkszisbhh9218-91-13 15:27:42 Test Item Value Reference Range Interpretation Comments HGB (test code = 718-7) 8.0 g/dL 14-18 L HCT (test code = 4544-3) 25.7 % 41-51 L Lab Interpretation (test code = Abnormal 53982-5) López MethodistFL Modified Barium Kbwhxlg3096-74-95 11:48:09Hm Interface, Radiology Results - 06/09/2020 11:51 AM CDTEXAMINATION: FL MODIFIED BARIUM SWALLOWCLINICAL HISTORY: Dysphagia unexplainedCOMPARISON: None.Fluoroscopy time: 0.8 minutesFINDINGS: The patient swallowed varying consistencies of barium under direct lateral fluoroscopic evaluation. The study was performed in conjunction with speech pathology.IMPRESSION:Normal study. The patient swallowed each consistency without evidence of laryngeal penetration or aspiration.Please refer to Speech Pathology report for further details.[facility]-[id number] MethodistIonized psuvzkh0960-53-81 03:25:11 Test Item Value Reference Range Interpretation Comments pH (test code = 2753-2) 7.43 Ionized calcium (test code = 1.20 mmol/L 1.11-1.32 ) Rene HopeistHepatitis B surface rwjxyzg0997-90-59 16:18:48 Test Item Value Reference Range Interpretation Comments Hepatitis B surface Ag (test Non-reactive Non-reactive code = 5195-3) [place] MethodistAFB pivwh1380-99-91 16:13:32 Test Item Value Reference Range Interpretation Comments AFB stain No acid fast Specimen (test code = bacilli (AFB) InformationSpe cimen 676-7) seen. Source: Bronchi al alveolar lavageSpecimen Site: RLL (Right Lower Lo be) López MethodistFungus hwpvd1950-47-39 16:13:32 Test Item Value Reference Range Interpretation Comments Fungus smear No fungi Specimen (test code = observed. InformationSpec imen Source: 1443) Bronchial alveo lar lavageSpecimen Site: RLL (Right Lower Lo be) [facility] CenterGram aplwj7463-37-04 16:13:32Gram stain isolateModerate WBC'sNo organisms seen Comment: Specimen InformationSpecimen Source: Bronchial alveolar lavageSpecimen Site: RLL (Right Lower Lobe) [facility] MethodistSurgical pathology rdnyqtq3367-06-35 14:49:16 Test Item Value Reference Range Interpretation Comments Case number (test code = [id number]) Surgical pathology See link below for report (test code = PDF Lab Report 2251) Result status (test code This is Final Report = [id number]) for [id number] [place] MethodistAnaerobic whpifnx8375-56-14 10:05:23 Test Item Value Reference Range Interpretation Comments Anaerobic No anaerobic Specimen culture isolate organisms InformationS pecimen (test code = isolated. Source: Pleural 552) fluidSpecimen S ite: Lung: LEFT PLEURAL FL UID [place] MethodistArterial blood ewm6849-86-34 02:00:18 Test Item Value Reference Range Interpretation Comments pH, arterial (test code 7.49 7.35-7.45 H = 2744-1) pCO2, arterial (test 39 See_Comment [Autom ated code = 2019-8) message] The system which generated this result transmitted reference range : 35 - 45 mmHg. The reference range was not used to interpret this result as normal/abnormal . pO2, arterial (test 219 See_Comment H [Automa jayla code = 2703-7) message] The system which generated this result transmitted reference range : 80 - 90 mmHg. The reference range was not used to interpret this result as normal/abnormal . Bicarbonate, arterial 29.0 mmol/L 21-28 H (test code = 1960-4) Base excess, arterial 6 See_Comment H [Auto mated (test code = 1925-7) message ] The system which generated this result transmitted reference range : -2 - 2 mEq/L. The reference range was not used to interpret this result as normal/abnormal . O2 saturation, arterial 99 % 95-100 (test code = 2708-6) Lab Interpretation Abnormal (test code = 14546-3) [facility] CenterHudxogbliOlhacmbnsqei1065-35-66 13:42:59Jam Hoskins MD 06/06/2020 1:46 PMBronchoscopy Date/Time: [...] retrieved for cultures. Airways diffusely erythematousHouston MethodistAerobic nxvzsvu2139-83-29 04:33:04 Test Item Value Reference Range Interpretation Comments Aerobic culture No growth Specimen isolate (test after 3 days. InformationSp ecimen code = 498) Source: Pleural fluidSpecimen S ite: Lung: LEFT PLEURAL FL UID [place] MethodistTissue anmplwd5630-89-13 04:32:41 Test Item Value Reference Range Interpretation Comments Tissue culture No growth Specimen isolate (test after 3 days. InformationSp ecimen code = 69295-5) Source: Tiss ueSpecimen Site: Lung: LEF T PLEURAL RIND [place] MethodistAnti Xa, dmairfdybdcxbu6755-06-28 10:10:05 Test Item Value Reference Range Interpretation Comments Anti Xa, unfractionated 0.43 U/mL 0.3-0.7 Ther apeutic Range: (test code = 3274-8) 0.30 - 0.70 U/mL López MethodistLactic acid unhqv7747-54-28 04:00:07 Test Item Value Reference Range Interpretation Comments Lactic acid (test code = 03832-2) 0.8 mmol/L 0.5-2.2 [place] MethodistCytology (non-gynecological) flfipow1789-14-08 16:12:18 Test Item Value Reference Range Interpretation Comments Case number (test code = [id number]) Cytology See link below for (non-gynecological) PDF Lab Report report (test code = 1178) Result status (test code This is Final Report = [id number]) for [id number] [place] MethodistComprehensive metabolic cfrdb2551-41-70 03:16:03 Test Item Value Reference Range Interpretation Comments Sodium (test code = 141 See_Comment [Automa jayla message] 2301-2) The system [employer] generated this result transmit jayla reference range : 135 - 148 mEq/L. Th e reference range was not used to interpret this result as normal/abnormal . Potassium (test code = 4.7 See_Comment [Aut omated message] 1243-3) The system [employer] generated this result transmit jayla reference range : 3.5 - 5.0 mEq/L. Th e reference range was not used to interpret this result as normal/abnormal . Chloride (test code = 102 See_Comment [Auto mated message] 0) The system [employer] generated this result transmit jayla reference range : 98 - 112 mEq/L. Th e reference range was not used to interpret this result as normal/abnormal . CO2 (test code = 25 See_Comment [Automated message] 2028-05) The system [employer] generated this result transmit jayla reference range : 24 - 31 mEq/L. The reference range was not used to interpret this result as normal/abnormal . Anion gap (test code = 14@ANIO See_Comment [Aut omated message] 79116-3) The system [employer] generated this result transmit jayla reference range : 7 - 15 mEq/L. The reference range was not used to interpret this result as normal/abnormal . BUN (test code = 14 mg/dL 8- 3094-0) Creatinine (test code = 3.38 mg/dL 0.7-1.2 H 2160-0) Glucose (test code = 129 mg/dL 65-99 H 2345-7) Calcium (test code = 9.5 mg/dL 8.8-10.2 88882-7) Protein (test code = 7.6 g/dL 6.3-8.3 -[place] n 2885-2) 4.6-7.0 g/ dL1 week 4.4-7.6 g/dL7 months-1year 5.1-7.3 g/dL1 -2 years 5.6-7.5 g/dL>3 years 6.0-8.0 g/dL18- 150 6.3-8.3 g/dL Albumin (test code = 2.9 g/dL 3.5-5 L 1751-7) A/G ratio (test code = 0.6 0.7-3.8 L 1759-0) Alkaline phosphatase 50 U/L 40-129 (test code = 6768-6) AST (test code = 33 U/L 10-50 1920-8) ALT (test code = 8 U/L 5-50 174-6) Total bilirubin (test 1.0 mg/dL 0-1.2 code = 1975-2) Lab Interpretation Abnormal (test code = 13860-0) [place] MethodistBilirubin dscuek0460-11-72 03:16:03 Test Item Value Reference Range Interpretation Comments Bilirubin direct (test code = 0.7 mg/dL 0-0.3 H 1967-) Lab Interpretation (test code = Abnormal 65848-3) [place] MethodistCentral Line Wqtfojotw3681-19-12 22:36:38Tasneem Rainey ACNP 06/02/2020 10:37 PMCentral Line [...] Patienttolerance of procedure: Tolerated well, no immediate complicationsManzanola UaftktcufJxgaprqtxt1979-32-35 22:03:04 Test Item Value Reference Range Interpretation Comments Fibrinogen (test code = 00453-2) 669 mg/dL 200-450 H Lab Interpretation (test code = Abnormal 85476-7) [place] MethodistIonized calcium, ghygljmu9651-56-95 21:45:08 Test Item Value Reference Range Interpretation Comments Ionized calcium, arterial (test 1.19 mmol/L 1.11-1.32 code = 93157-1) [place] MethodistArterial blood gas, qcyskicjg0324-18-81 20:34:56 Test Item Value Reference Range Interpretation Comments pH, arterial (test code 7.44 7.35-7.45 = 2744-1) pCO2, arterial (test 42 See_Comment [Autom ated message] code = 2019-8) The system ich generated this result transmitted ref erence range: 35 - 45 mmHg. The reference r sylvia was not used to interpret this result as normal/abnor mal. pO2, arterial (test code 264 See_Comment H [A utomated message] = 2703-7) The system [employer] h generated this result transmitted ref erence range: 80 - 90 mmHg. The reference r sylvia was not used to interpret this result as normal/abnor mal. Temperature, Celsius 37.6 Degrees C (test code = 8310-5) O2 saturation, arterial 97 % 95-100 (test code = 2708-6) pH, arterial corrected 7.43 (test code = 84370-9) pCO2, arterial corrected 44 mmHg (test code = 45294-5) pO2, arterial corrected 266 mmHg (test code = 90104-3) Base excess, arterial 4 See_Comment H [Auto mated message] (test code = 1925-7) The [facility] tem which generated this result transmitted ref erence range: -2 - 2 m Eq/L. The reference r sylvia was not used to interpret this result as normal/abnor mal. Lab Interpretation (test Abnormal code = 85426-7) [place] MethodistGlucose level, iovvnuc5928-90-98 20:34:56 Test Item Value Reference Range Interpretation Comments Glucose, syringe (test code = 106 mg/dL 65-99 H 2345-7) Lab Interpretation (test code = Abnormal 00567-1) Rene MethodistHemoglobin, wrtknmo4974-89-02 20:34:56 Test Item Value Reference Range Interpretation Comments Hemoglobin, syringe (test code = 10.0 g/dL 14-18 L 718-7) Lab Interpretation (test code = Abnormal 83690-6) Rene MethodistLactic acid, ksjdyql0317-71-99 20:34:56 Test Item Value Reference Range Interpretation Comments Lactic acid, syringe (test code = 0.7 mmol/L 0.5-2.2 62154-7) Rene MethodistPotassium, unotqtv3390-53-49 20:34:56 Test Item Value Reference Range Interpretation Comments Potassium, syringe 4.3 See_Comment [Automat ed message] The (test code = 2007) system wh ich generated this result tra nsmitted reference range : 3.5 - 5.0 mEq/L. The refe rence range was not used to interpret this result as normal/abnormal . Rene MethodistSodium level, avoshkm3522-97-00 20:34:56 Test Item Value Reference Range Interpretation Comments Sodium, syringe (test 139 See_Comment [Auto mated message] The code = 2947-0) system which generated this result tra nsmitted reference range : 135 - 148 mEq/L. The refe rence range was not used to interpret this result as normal/abnormal . López MethodistRotational thromboelastometry, FKFTX9133-85-44 19:53:28 Test Item Value Reference Range Interpretation Comments Clotting time, INTEM 178 See_Comment [Autom ated (test code = 31257-9) messag e] The system which generated this result transmit jayla reference range : 122 - 208 sec. The reference range was not used to interpret this result as normal/abnormal . Clot formation time, 76 See_Comment [Autom ated INTEM (test code = message] The 29137-2) system which generated this result transmit jayla reference range : 45 - 110 sec. T he reference range was not used to interpret this result as normal/abnormal . Alpha angle, INTEM 75 deg 70-81 (test code = 73809-1) A20, INTEM (test code 72 mm 51-72 = 11701-2) Maximum clot 73 mm 51-72 H firmness, INTEM (test code = 65634-3) Maximum lysis, INTEM 2 % Test st opped (test code = 11019-6) early; this is an estimated value . LI30, INTEM (test 100 % code = 48667-1) ALVIN (test code = ALVIN) PT,FIBR results called to and read back by /SHELLI 06at 06/02/2020 18:52 by MR. Lab Interpretation Abnormal (test code = 19020-0) López MethodistRotational thromboelastometry, [id number] 19:53:28 Test Item Value Reference Range Interpretation Comments Clotting time, EXTEM 99 See_Comment H [Autom ated (test code = 47181-1) messag e] The system which generated this result transmit jayla reference range : 43 - 82 sec. Th e reference range was not used to interpret this result as normal/abnormal . Clot formation time, 49 See_Comment [Autom ated EXTEM (test code = message] The 63891-4) system which generated this result transmit jayla reference range : 48 - 127 sec. T he reference range was not used to interpret this result as normal/abnormal . Alpha angle, EXTEM 80 deg 65-80 (test code = 63760-3) A20, EXTEM (test code 70 mm 50-70 = 49538-7) Maximum clot 72 mm 52-70 H firmness, EXTEM (test code = 30334-5) Maximum lysis, EXTEM 2 % Test st opped (test code = 88007-9) early; this is an estimated value . LI30, EXTEM (test 100 % code = 39279-4) ALVIN (test code = ALVIN) PT,FIBR results called to and read back by /SHELLI at 06/02/2020 18:52 by MR. Lab Interpretation Abnormal (test code = 66681-4) Rene MethodistRotational thromboelastometry, [id number] 19:53:28 Test Item Value Reference Range Interpretation Comments Clotting time, 175 sec HEPTM (test code = 98411-1) Clot formation 63 sec time, HEPTM (test code = 64265-5) Alpha angle, HEPTM 78 deg (test code = 27675-5) A20, HEPTM (test 72 mm code = 84067-4) Maximum clot 73 mm firmness, HEPTM (test code = 95723-0) Maximum lysis, 3 % Test stopped early; HEPTM (test code = [place] n 55247-1) estimated value . LI30, HEPTM (test 100 % HEPTEM viktor uld be code = 61995-9) compared to INTEM. INTEM-HEPTEM results allow assessment of hemostasis with out the overlaying heparin effect. ALVIN (test code = PT,FIBR results ALVIN) called to and read back by /WTOR0 6at 06/02/2020 18:52 by MR. López MethodistRotational thromboelastometry, [id number] 19:53:28 Test Item Value Reference Range Interpretation Comments A20, FIBTEM (test code = 41 mm 7-24 H 51667-3) Maximum clot firmness, 43 mm 7-24 H FIBTEM (test code = 88818-8) ALVIN (test code = ALVIN) PT,FIBR results called to and read back by /UHWX98ex 06/02/2020 18:52 by MR. Mahajan Interpretation (test Abnormal code = 29414-6) Rene MethodistPlatelet [id number] 19:05:42 Test Item Value Reference Range Interpretation Comments Platelet count (test 202 See_Comment [Autom ated message] The code = 76167-6) system which generated this result tra nsmitted reference range : 150 - 400 k/uL. The r eference range was not u sed to interpret this result as normal/abnormal . Rene KacclxuqxMfvxjw4090-49-77 14:46:21Harley Massey MD 06/02/2020 2:47 PMAirway Date/Time: 06/02/2020 2:46 PMPerformed by: Harley Massey MDAuthorized by: Becky Laird MD Location: ORUrgency: ElectiveDifficult Airway: No Resident/SUPERVISOR GRINDING/AA: Harley Massey, MDPerformed by: resident/SUPERVISOR GRINDING/AAPreoxygenated with 100% O2: Yes C- spine Precautions [...] 06/02/2020 2:44 PMEnd Time: 06/02/2020 2:44 PMStaff: Resident/SUPERVISOR GRINDING/AA: Harley Massey MD Performed by: Resident/SASHA/AAPre-procedure: patient identified, IV checked, site and side [...] Post procedure circulation, sensation, movement: Unable to assessManzanola MethodistHepatic function [id number] 04:36:09 Test Item Value Reference Range Interpretation [...] g/dL 1-2 years 5.6-7.5 g/dL>3 years 6.0-8.0 g/rK39-203 6.3-8. 3 g/dL ALT (test code = 1742-6) 9 U/L 5-50 AST (test code = 1920-8) 29 U/L 10-50 Lab Interpretation (test Abnormal code = 57400-5) Manzanola MethodistEchocardiogram kzbsqgegdgkxeph7669-08-02 15:27:00Interface, Radiology Results In - 06/01/2020 3:28 PM CDT Transesophageal Echo Report [address], [place], [place] [address] Pat.Name: CALEB LUGO Melissa.ID: [id number] [facility] ate: 06/01/2020 Exam Time: 11:38:00 AM Study Type:SEGUNDO Height: 67in Weight: 135lb BSA: 1.71 m2 Age: 804/24/1955,65Y Sex: MALE Sonogrphr: Clayton Carbajal MD Pat. Stat.:Inpatient Study Status:Final Echo Event ID:[id number] Order ID: [id number] Reason for Study:Mitral Valve Mechanical Prosthetic Va [...] " physiological" MR FINDINGS:-- SEGUNDO: The attending earth science faculty member performed the SEGUNDO procedure and was present [...] Per AnesthesiaASA Class: 3Physician: Chey Slade M.D. Stock Puller: Luis Marshall SEGUNDO BP HR Post SEGUNDO BP HR 142/57 772 132/58 67Meds: Viscousxylocaine, Cetacaine spray to oropharynx, PerAnesthesiaComplications: None Condition:Good MEASUREMENTS: -------- DOPPLERMV Forward Flow MV pkVel 185.2 cm/s MVMean G 4.1 mmHg MV pkPG 13.7 mmHg MV TVI 38.4 cm Signed 06/01/2020 03:27 PMSu Alberto Slade M.D.Manzanola MethodistEC Pre/Post [id number] 14:15:37 Test Item Value Reference Range Interpretation [...] repolarization, pericarditis, or injury-Nonspecific ST abnormality-Abnormal ECG- Manzanola MethodistTransthoracic Echocardiogram Complete, (w Contrast, Strain and 3D if needed)2020-05-29 11:54:00Interface, Radiology Results In - 05/29/2020 11:54 AM CDT Echocardiography Report [address] [address] [facility].Name: CALEB LUGO.ID: [id number].Date: 05/29/2020 Refer.MD: JUJU BOLAND MD Exam Time: 8:40:00 AM Study Type:Routine Echo Height: 67in Weight: 150lb BSA: 1.79 m2 Age: 804/24/1955,65Y Sex: MALE BP: 129/70 HR: 88 bpm Sonogrphr: CAROLYN [facility]. Stat.:Inpatient Room: M0429 Study Status:Final Echo Event ID:[id number] Order ID: [id number] Reason forStudy:Chest pain, cardiac etiology suspectedHistory / [...] RAP of 20 mmHg. MEASUREMENTS: 2DParasternal Long [place] Ao An 1.9 cm LVPWd 0.9 cm [...] TV PG 51 mmHg Signed 05/29/2020 11:54 Ramírez Bryson MDManzanola MethodistSputum [id number] 02:31:33 Test Item Value Reference Range Interpretation Comments Sputum culture Normal oral Specimen isolate (test pete InformationSpe cimen code = 2234) isolated. Source: SputumS pecimen Site: Expectora jayla López MethodistB natriuretic [id number] 13:57:05 Test Item Value Reference Range Interpretation Comments BNP (test code = 64697-5) 882 pg/mL 0-100 H Lab Interpretation (test code = Abnormal 09040-1) López YarsaniVancomycin level, inluuj2858-53-80 06:29:11 Test Item Value Reference Range Interpretation Comments Vancomycin, random (test code = 18.5 ug/mL 93587-8) Rene WilsonTPA/Dornase Gddtawmmtqdywi5199-98-46 12:19:05Julieta Brock PA 05/16/2020 12:22 PMTPA/Dornase Administration Date/Time: 05/16/2020 10:40 AMPerformed by: Julieta Brock PAAuthorized by: Uri Nicole MD Consent: Consent [...] of proc edure: Tolerated well, no immediate complicationsManzanola YarsaniBlood culture, aerobic & raeertsco0251-98-58 19:33:07 Test Item Value Reference Range Interpretation Comments Blood culture No growth Specimen isolate (test after 5 days InformationSpe cimen code = 600-7) of Source: BloodS pecimen incubation. Site: Hand, rig ht López JayyistAlbumin, [facility] [id number] 23:55:35 Test Item Value Reference Range Interpretation Comments Fluid type Thoracentesis (test code = 66764-4) Albumin, fluid 1.7 g/dL The reference interval(s) (test code = and other metho d 1747-5) performance specifications have not been establishe d for this body fluid. The test results must be integrated into the clinical contex t for interpretation. This test has been modifi ed from the manufacture rs instructions. The performance characteristics were determined by nisha chavez in a manner consiste nt with CLIA requiremen ts. This test has not be en cleared or approved by the U.S. Food and Drug Administration. Manzanola YarsaniGlucose level, [facility] [id number] 23:55:16 Test Item Value Reference Range Interpretation Comments Fluid type Thoracentesis (test code = 60035-8) Glucose, fluid 39 mg/dL The reference interval(s) (test code = and other metho d 2344-0) performance specifications have not been establishe d for this body fluid. The test results must be integrated into the clinical contex t for interpretation. This test has been modifi ed from the manufacture rs instructions. The performance characteristics were determined by nisha chavez in a manner consiste nt with CLIA requiremen ts. This test has not be en cleared or approved by the U.S. Food and Drug Administration. Rene WilsonLDH, [facility] [id number] 23:55:16 Test Item Value Reference Range Interpretation Comments Fluid type Thoracentesis (test code = 11748-6) LDH, fluid 201 U/L The reference i nterval(s) (test code = and other metho d 32264-3) performance specifications have not been establishe d [...] the U.S. Food and Drug Administration. Rene HopeistProtein, [facility] [id number] 23:55:16 Test Item Value Reference Range Interpretation Comments Fluid type Thoracentesis (test code = 97314-5) Protein, fluid 3.7 g/dL The reference interval(s) (test code = and other metho d 2881-1) performance specifications have not been establishe d for this body fluid. The test results must be integrated into the clinical contex t for interpretation. This test has been modifi ed from the [employer] rs instructions. The performance characteristics were determined by Chu chavez in a manner consiste nt with CLIA requiremen ts. This test has not be en cleared or approved by the U.S. Food and Drug Administration. Rene HopeistTriglycerides, [facility] [id number] 23:55:16 Test Item Value Reference Range Interpretation Comments Fluid type Thoracentesis (test code = 85096-6) Triglyceride, 50 mg/dL The reference interval(s) fluid (test and other metho d code = 41316-6) performance specifications have not been establishe d for this body fluid. The test results must be integrated into the clinical contex t for interpretation. This test has been modifi ed from the [employer] rs instructions. The performance characteristics were determined by Chu chavez in a manner consiste nt with CLIA requiremen ts. This test has not be en cleared or approved by the U.S. Food and Drug Administration. Rene HopeistAmylase level, [facility] hawqw1749-05-33 22:19:02 Test Item Value Reference Range Interpretation Comments Fluid type Thoracentesis (test code = 71334-7) Amylase, fluid 44 U/L The reference interval(s) (test code = and other metho d 1795-4) performance specifications have not been establishe d for this body fluid. The test results must be integrated into the clinical contex t for interpretation. This test has been modifi ed from the [employer] rs instructions. The performance characteristics were determined by Chu chavez in a manner consiste nt with CLIA requiremen ts. This test has not be en cleared or approved by the U.S. Food and Drug Administration. Rene Lopez, [facility] [id number] 22:19:02 Test Item Value Reference Range Interpretation Comments Fluid type (test Thoracentesis code = 34574-0) pH, fluid (test 8.00 Reference ra nges are code = 2748-2) not establish ed for Miscellanous sp ecimens. Rene Davila count and differential, body evbrf7757-67-11 20:37:46 Test Item Value Reference Range Interpretation Comments [facility] fluid type Thoracentesis (test code = 51763-3) Color, fluid (test [place] code = 6824-7) Appearance, fluid Hazy (test code = 9335-1) RBC, fluid (test 22,000 See_Comment [Automated message] code = 50961-0) The system w [facility] generated this result transmit jayla reference range : /CMM. The refer ence range was not u sed to interpret th is result as normal/abnormal . Nucleated cells, 104 See_Comment [Automated message] fluid (test code = The syste m which 19445-3) generated this result transmit jayla reference range : /CMM. The refer ence range was not u sed to interpret th is result as normal/abnormal . Fluid mononuclear See Diff cell (test code = 1407) Neutrophils, fluid 2 % (test code = 44447-9) Lymphocytes, fluid 98 % (test code = 85283-4) Rene MethodistXR Chest 1 [id number] 17:11:53Hm Interface, Radiology Results - 05/12/2020 5:14 PM CDTEXAMINATION: XR CHEST 1 VWCLINICAL HISTORY: post pleural catheter insertionCOMPARISON: Chest 1 view dated 05/09/2020IMPRESSION:1. Interval placement of a left pleural catheter. No pneumothorax. Left pleural effusion is decreased in size from the prior study. Right pleural effusion and right lower lobe atelectasis are unchanged.2. The c ardiac silhouette is enlarged. Mild central pulmonary vascular congestion is improved.3. No acute osseousHMWH-[id number] YarsaniUS Insert Pleura Qxqnxcll6726-97-04 17:07:52Hm Interface, Radiology Results - 05/12/2020 5:10 PM CDTProcedure:Ultrasound-guided left thoracostomy tube placementPerforming Radiologist:Bhavna Shea MDAssistants:Dr. Lora Type: Intraservice moderate sedation was administered by [...] administered locally.Under direct ultrasound guidance a 5 Indonesian Yueh needle was inserted into the left pleural space. The inner stylette was removed and a guidewire advanced. Following serial dilatation over the wire an 8 Indonesian locking pigtail catheter was placed. Approximately 20 cc offluid were aspirated and sent to laboratory for culture and sensitivity. The catheter was then affixe d the patient's skin with 2-0 silk and placed to Pleur-evac drainage. Patient tolerated the procedure well.Complications:NoneSpecimens Removed:As aboveEstimated Blood Loss:Less than 1 mLBlood/Blood Products Administered:NoneGrafts/Implants:As described in the above report.Impression:Successful, uncomplicated ultrasound-guided left thoracostomy tube placement.[id number] 12/08 qqjowo2717-19-44 09:39:16 Test Item Value Reference Range Interpretation Comments CD3% (test code = 57 % 57-85 8124-0) CD3 absolute count 276 ul 544-2501 L (test code = 8122-4) CD4% (test code = 31 % 37-57 L 8123-2) CD4 absolute count 149 ul 488-1340 L (test code = 29286-1) CD8% (test code = 26 % 13-40 8101-8) CD8 absolute count 126 ul 136-937 L (test code = 65430-9) CD4/CD8 ratio (test 1.2 0.8-2.9 code = 68350-2) 12/08 subset (test See link below Case N umber: code = 1013) for PDF Lab [id number] Report Lab Interpretation Abnormal (test code = 04023-1) Man[facility] MethodistCRITICAL [id number] 01:13:17Megan Mcmahon MD 05/10/2020 1:22 PMCritical CarePerformed by: Leora [...] carefor this patient from another provider.: no Manzanola MethodistRespiratory pathogen [id number] 20:30:03 Test Item Value Reference Interpretation Comments Range Adenovirus PCR (test Not Detected Specime n code = 7092) InformationSpec im Source: [facility] Site: Right Coronavirus HKU1 PCR Not Detected [...] pertussis Not Detected PCR (test code = 8600997) Bordetella Not Detected parapertussis PCR (test code = 3335660) Chlamydia pneumoniae Not Detected PCR (test code = 3753) Mycoplasma Not Detected pneumoniae PCR (test code = 7110) Influenza A no sub Not Reported type PCR (test code = 7127) Manzanola MethodistInfluenza antigen test, reflex negative to [id number] 20:26:21 Test Item Value Reference Range Interpretation Comments Influenza Negative for Specimen antigen (test Influenza A/B [facility] ecimen code = 40043-0) antigen. Source: [facility] Site: Right Manzanola MethodistECG 12 [id number] 20:10:26Interface, External Ris In - 2020 8:10 PM CDTVentricular Rate 86 BPMAtrial Rate 88 BPMQRS Duration 76 msQ-T Interval 382 msQTC Calculation(Bazett) 457 msR [place] 50 degreesT [place] [address] abnormalityAbnormal ECGWhen compared with ECG of 16-DEC-2018 13:58,Currentundetermined rhythm precludes rhythm comparison, needs reviewConfirmed by MD SHAYNA, GUSTAVO ([id number]) on 2020 8:10:24 [facility] CaliforniaEC[facility]/EKG Interpretation 2020-04-22 00:23:00Juliana Avila MD 04/22/2020 1:24 AMECG/EKG InterpretationDate/Time: 04/22/2020 1:24 AMPerformed by: Juliana Avila MDAuthorized by: Juliana Avila MD The ECG was interpreted by ED physician. The ECG is interpreted as sinus rhythm. Rate is normal rate. Heart rate is 86 BPM.Conduction: conduction normal. ST segments normal. T waves normal.[facility] CenterTroponin [id number] 23:28:00 Test Item Value Reference Range Interpretation Comments Troponin I (test code = 0.04 ng/mL 0-0.03 H 36445-1) ALVIN (test code = ALVIN) Troponin I [...] L Lab Interpretation (test Abnormal code = 67147-5) [facility] [id number] 23:28:00 Test Item Value Reference Range Interpretation [...] failure, acidosis, acute neurological disease, and persistent tachyarrhythmia.Monument Setter Helper ID - PIAYA LBasic Metabolic [id number] 23:26:00 Test Item Value Reference Range Interpretation Comments Sodium (test code = 137 meq/L 187-183 5613-2) Potassium (test code = 4.2 meq/L 3.5-5.1 2823-3) Chloride (test code = 94 meq/L 98-107 L 2075-0) CO2 (test code = 34 meq/L 22-29 H 2028-9) BUN (test code = 21 mg/dL 7-21 3094-0) Creatinine (test code 4.95 mg/dL 0.57-1.25 H = 2160-0) Glucose (test code = 126 mg/dL 70-105 H 2345-7) Calcium (test code = 9.4 mg/dL 8.4-10.2 09218-0) EGFR (test code = 14 mL/min/1.73 [place] [address]-8) NOT ACCURATE CREATININE CLEARANCE IN PREDICTING GLOMERULAR FILTRATION RATE . ESTIMATED GFR I S NOT APPLICABLE FOR DIALYSIS PATIENTS. ALVIN (test code = ALVIN) Monument Setter Helper ID Patel Chapman Lab Interpretation Abnormal (test code = 87236-2) [facility] CenterBASIC METABOLIC [id number] 23:26:00 Test Item Value Reference Range Interpretation [...] S NOT APPLICABLE FOR DIALYSIS PATIEN TS. Monument Setter Helper JOSE ODEN LB-type Natriuretic Factor (BNP)2020-04-21 23:25:00 Test Item Value Reference Range Interpretation Comments BNP (test code = 57914-2) 1507 pg/mL 0-100 H ALVIN (test code = ALVIN) Monument Setter Helper ID Patel Chapman Lab Interpretation (test Abnormal code = 51053-2) [facility] CenterB-TYPE NATRIURETIC FACTOR (BNP)2020-04-21 23:25:00 Test Item Value Reference Range Interpretation Comments B-TYPE NATRIURETIC PEPTIDE 1507 pg/mL 0-100 H (BEAKER) (test code = 700) Monument Setter Helper JOSE ODEN LPT/[id number] 23:09:00 Test Item Value Reference Interpretation Comments Range Protime (test code = 25.1 See_Comment H [Autom ated 5902-2) message] The system which generated this result transmitted reference range : 11.9 - 14.2 seconds. The reference range was not used to interpret this result as normal/abnormal . INR (test code = 2.34 See_Comment [Automated 9851-6) message] The system which generated this result transmitted reference range : <=5.90. The reference range was not used to interpret this result as normal/abnormal . PTT (test code = 38.7 See_Comment H [Automated 37788-1) message] The system which generated this result transmitted reference range : 22.5 - 36.0 seconds. The reference range was not used to interpret this result as normal/abnormal . ALVIN (test code = Effective 01/28/2019: ALVIN) PT Reference Range ChangeNew: 11.9-14.2 Previous: 11.7-14.7 RECOMMENDED COUMADIN/WARFARIN INR THERAPY RANGESSTANDARD DOSE: 2.0-3.0 Includes: PROPHYLAXIS for venous thrombosis, systemic embolization; TREATMENT for venous thrombosis and/or pulmonary embolus.HIGH RISK: Target INR is 2.5-3.5 for patients wiht mechanical heart valves. Lab Interpretation Abnormal (test code = 05775-3) [facility] CenterPT/[id number] 23:09:00 Test Item Value Reference Range Interpretation [...] heart valves.CBC with platelet count + automated [id number] 22:49:00 Test Item Value Reference Range Interpretation Comments WBC (test code = 6690-2) 6.2 See_Comment [A utomated message] The system [employer] generated this result transmitted ref erence range: 3.5 - 10 .5 K/L. The refe rence range was not u sed to interpret this result as normal/abnor mal. RBC (test code = 789-8) 2.92 See_Comment L [Au tomated message] The system [employer] generated this result transmitted ref erence range: 4.63 - 6 .08 M/L. The refe rence range was not u sed to interpret this result as normal/abnor mal. MCHC (test code = 786-4) 31.5 See_Comment L [A utomated message] The system [employer] generated this result transmitted ref erence range: 32.3 - 3 6.5 GM/DL. The refe rence range was not u sed to interpret this result as normal/abnor mal. Hematocrit (test code = 29.5 % 40.1-51 L 4544-3) MCV (test code = 787-2) 101.0 fL 79-92.2 H MCH (test code = 785-6) 31.8 pg 25.7-32.2 RDW (test code = 788-0) 13.3 % 11.6-14.4 Platelets (test code = 126 See_Comment L [Aut omated message] 777-3) The system [employer] generated this result transmitted ref erence range: 150 - 45 0 K/CU MM. The referen ce range was not u sed to interpret this result as normal/abnor mal. MPV (test code = 9.0 fL 9.4-12.4 L 39512-6) nRBC (test code = 413) 0 See_Comment [Aut omated message] The system [employer] generated this result transmitted ref erence range: 0 - 0 /1 00 WBC. The refere nce range was not u sed to interpret this result as normal/abnor mal. % Neutros (test code = 65 % 429) % Lymphs (test code = 20 % 430) % Monos (test code = 13 % 431) % Eos (test code = 432) 2 % % Baso (test code = 437) 1 % # Neutros (test code = 4.02 See_Comment [Aut omated message] 670) The system [employer] generated this result transmitted ref erence range: 1.78 - 5 .38 K/L. The refe rence range was not u sed to interpret this result as normal/abnor mal. # Lymphs (test code = 1.23 See_Comment L [Auto mated message] 414) The system [employer] generated this result transmitted ref erence range: 1.32 - 3 .57 K/L. The refe rence range was not u sed to interpret this result as normal/abnor mal. # Monos (test code = 0.82 See_Comment [Autom ated message] 415) The system [employer] generated this result transmitted ref erence range: 0.30 - 0 .82 K/L. The refe rence range was not u sed to interpret this result as normal/abnor mal. # Eos (test code = 416) 0.12 See_Comment [Au tomated message] The system [employer] generated this result transmitted ref erence range: 0.04 - 0 .54 K/L. The refe rence range was not u sed to interpret this result as normal/abnor mal. # Baso (test code = 417) 0.03 See_Comment [A utomated message] The system [employer] generated this result transmitted ref erence range: 0.01 - 0 .08 K/L. The refe rence range was not u sed to interpret this result as normal/abnor mal. Immature 0 % 0-1 Granulocytes-Relative (test code = 2801) Lab Interpretation (test Abnormal code = 99028-0) [facility] W/PLT COUNT & AUTO [id number] 22:49:00 Test Item Value Reference Range Interpretation [...] (test code = 2801) RAD, CHEST, 2 [id number] 22:26:00Reason for exam:->SHORTNESS OF BREATH FINAL REPORT [...] Verified Date/Time: 04/21/2020 22:26:38 XR chest 2 [id number] 22:26:00Interface, External Ris In - 04/21/2020 10:28 [...] Signed: Edenilson Gutierrez Verified Date/Time: 04/21/2020 22:26:38 [facility] CaliforniaDIABETIC FOOT [id number] 10:40:00Gurinder Chand MD 04/08/2020 1:18 PMDiabetic Foot Exam was performed at 04/08/2020 9:45 AM. Right foot sensation is normal, right foot pulses are reduced, right foot appearance is normal. Left foot sensation is normal, left foot pulses are reduced, left foot appearance is normal.[facility]-Glucose xuqoc0203-01-83 15:36:00 Test Item Value Reference Range Interpretation Comments POC-Glucose Meter (test 133 mg/dL 70-110 H : TE STED AT [facility] code = 1538) [address] [facility] [address]: Monument Setter Helper/Techni kush ID = [id number] for ChapinEulalio debbie Lab Interpretation (test Abnormal code = 82415-1) [facility] CenterPOCT-GLUCOSE [id number] 15:36:00 Test Item Value Reference Range Interpretation Comments POC-GLUCOSE METER 133 mg/dL 70-110 H : TESTED A T [facility] 6720 (BEAKER) (test code = FOSTER Paul [facility], 1538) 790[address]: Monument Setter Helper/Techni kush ID = [id number] for Phyllis Rao POCT-GLUCOSE [id number] 12:38:00 Test Item Value Reference Range Interpretation Comments POC-GLUCOSE METER 100 mg/dL 70-110 : [facility] ([facility]) (test code = FOSTER Paul [facility], 1538) 46255: Monument Setter Helper/Techni kush ID = [id number] for Phyllis Rao HEMODIALYSIS [id number] 12:23:00Chu, Simeon Gallego RN 03/03/2020 12:24 PMHD [...] Lab Results Component Value Date HEPBSAG Nonreactive 02/27/2020[facility] 09:28:00 Test Item Value Reference Range Interpretation Comments PTT (test code = 67.8 See_Comment H [Automated message] 64989-1) The system Templaf[employer] generated this result transmitted ref erence range: 22.5 - 3 6.0 seconds. The reference range was not used to int erpret this result as normal/abnormal . Lab Interpretation (test Abnormal code = 41641-0) [facility]APTT[facility] 09:28:00 Test Item Value Reference Range Interpretation Comments PARTIAL THROMBOPLASTIN TIME 67.8 seconds 22.5-36.0 H (JARROD) (test code = 760) [id number] 07:14:00 Test Item Value Reference Range Interpretation Comments PARTIAL THROMBOPLASTIN TIME 146.9 seconds 22.5-36.0 H (BEAKER) (test code = 760) CBC W/PLT COUNT & AUTO [id number] 05:40:00 Test Item Value Reference Range Interpretation [...] (BEAKER) (test code = 2801) BASIC METABOLIC [id number] 05:24:00 Test Item Value Reference Range Interpretation [...] S NOT APPLICABLE FOR DIALYSIS PATIEN TS. Monument Setter Helper ID - LORENZO WDaily Prothrombin time/INR while on [id number] 04:52:00 Test Item Value Reference Interpretation Comments Range Protime (test code = 32.1 See_Comment H [Autom ated 0752-2) message] The system which generated this result transmitted reference range : 11.9 - 14.2 seconds. The reference range was not used to interpret this result as normal/abnormal . INR (test code = 3.2 See_Comment [Automated 5941-6) message] The system which generated this result transmitted reference range : <=5.9. The reference range was not used to interpret this result as normal/abnormal . ALVIN (test code = Effective 01/28/2019: ALVIN) PT Reference Range ChangeNew: 11.9-14.2 Previous: 11.7-14.7 RECOMMENDED COUMADIN/WARFARIN INR THERAPY RANGESSTANDARD DOSE: 2.0-3.0 Includes: PROPHYLAXIS for venous thrombosis, systemic embolization; TREATMENT for venous thrombosis and/or pulmonary embolus.HIGH RISK: Target INR is 2.5-3.5 for patients wiht mechanical heart valves. While on warfarin. Lab Interpretation Abnormal (test code = 98189-5) [facility] CenterPROTHROMBIN TIME/[id number] 04:52:00 Test Item Value Reference Range Interpretation [...] H : TESTED A T [facility] 6720 ([place]) (test code = [employer] [place], 1538) 709[address]: Monument Setter Helper/Techni kush ID = [id number] for KATIA RAO [id number] 21:05:00 Test Item Value Reference Range Interpretation Comments PARTIAL THROMBOPLASTIN TIME 66.8 seconds 22.5-36.0 H (BEAKER) (test code = 760) [id number] 19:49:00 Test Item Value Reference Range Interpretation Comments PARTIAL THROMBOPLASTIN TIME > seconds 22.5-36.0 HH (BEAKER) (test code = 760) POCT-GLUCOSE [id number] 17:09:00 Test Item Value Reference Range Interpretation Comments POC-GLUCOSE METER 145 mg/dL 70-110 H : TESTED A T [facility] 6720 (BEAKER) (test code = [employer] [facility], 1538) 17359: Monument Setter Helper/Techni kush ID = [id number] for Christina Chisholm POCT-GLUCOSE [id number] 12:10:00 Test Item Value Reference Range Interpretation Comments POC-GLUCOSE METER 113 mg/dL 70-110 H : TESTED A T [facility] 6720 (BEAKER) (test code = [facility], 1538) 54856: Monument Setter Helper/Techni kush ID = [id number] for Christina Chisholm [id number] 11:50:00 Test Item Value Reference Range Interpretation Comments PARTIAL THROMBOPLASTIN TIME 96.6 seconds 22.5-36.0 H (BEAKER) (test code = 760) POCT-GLUCOSE [id number] 08:28:00 Test Item Value Reference Range Interpretation Comments POC-GLUCOSE METER 150 mg/dL 70-110 H : TESTED A T [facility] 6720 (BEAKER) (test code = [facility], 1538) 73877: Monument Setter Helper/Techni kush ID = [id number] for Christina Chisholm BASIC METABOLIC [id number] 06:15:00 Test Item Value Reference Range Interpretation [...] S NOT APPLICABLE FOR DIALYSIS PATIEN TS. Monument Setter Helper ID - BSCBC W/PLT COUNT & AUTO [id number] 06:12:00 Test Item Value Reference Range Interpretation [...] 0-1 PERCENT (BEAKER) (test code = 2801) [id number] 05:43:00 Test Item Value Reference Range Interpretation Comments PARTIAL THROMBOPLASTIN TIME 61.8 seconds 22.5-36.0 H (BEAKER) (test code = 760) PROTHROMBIN TIME/[id number] 05:42:00 Test Item Value Reference Range Interpretation [...] mg/dL 70-110 H : TESTED Ev Wade [facility] 6720 (JARROD) (test code = [place], 1538) 569[address]: Monument Setter Helper/Techni kush ID = [id number] for BENITA SEBASTIAN [id number] 22:49:00 Test Item Value Reference Range Interpretation Comments PARTIAL THROMBOPLASTIN TIME 86.0 seconds 22.5-36.0 H (BEAKER) (test code = 760) [id number] 15:29:00 Test Item Value Reference Range Interpretation [...] INR is2.5-3.5 for patients wiht mechanical heart valves.[id number] 15:29:00 Test Item Value Reference Range Interpretation Comments PARTIAL THROMBOPLASTIN TIME 90.0 seconds 22.5-36.0 H (BEAKER) (test code = 760) HEMODIALYSIS [id number] 12:40:00Maria Isabel Kelly RN 03/01/2020 2:57 PMProcedure [...] 1315 BP: 112/78 Pulse: 97 Resp: Temp: SpO2:98%[facility] CenterBASI METABOLIC [id number] 12:20:00 Test Item Value Reference Range Interpretation [...] S NOT APPLICABLE FOR DIALYSIS PATIEN TS. Monument Setter Helper ID - ANTONIA FCBC W/PLT COUNT & AUTO [id number] 07:29:00 Test Item Value Reference Range Interpretation [...] 0-1 PERCENT (BEAKER) (test code = 2801) [id number] 07:20:00 Test Item Value Reference Range Interpretation Comments PARTIAL THROMBOPLASTIN TIME 61.2 seconds 22.5-36.0 H (BEAKER) (test code = 760) While on warfarin.BASIC METABOLIC [id number] 07:06:00 Test Item Value Reference Range Interpretation [...] S NOT APPLICABLE FOR DIALYSIS PATIEN TS. Monument Setter Helper ID - ANTONIA FPROTHROMBIN TIME/[id number] 06:37:00 Test Item Value Reference Range Interpretation [...] for patients wiht mechanical heart valves.While on warfarin.[id number] 23:03:00 Test Item Value Reference Range Interpretation Comments PARTIAL THROMBOPLASTIN TIME 54.4 seconds 22.5-36.0 H (BEAKER) (test code = 760) POCT-GLUCOSE [id number] 22:30:00 Test Item Value Reference Range Interpretation Comments POC-GLUCOSE METER 96 mg/dL 70-110 : TESTED A T [facility] 6720 (BEAKER) (test code = [facility] [employer] [facility], 1538) 53782: Monument Setter Helper/Techni kush ID = [id number] for TRUNG Paul BENITA POCT-GLUCOSE [id number] 15:59:00 Test Item Value Reference Range Interpretation Comments POC-GLUCOSE METER 133 mg/dL 70-110 H : TESTED A T [facility] 6720 (BEAKER) (test code = [facility] [employer] [facility], 1538) 28114: Monument Setter Helper/Techni kush ID = [id number] for Phyllis Rao [id number] 15:38:00 Test Item Value Reference Range Interpretation Comments PARTIAL THROMBOPLASTIN TIME 88.8 seconds 22.5-36.0 H (BEAKER) (test code = 760) POCT-GLUCOSE [id number] 12:08:00 Test Item Value Reference Range Interpretation Comments POC-GLUCOSE METER 130 mg/dL 70-110 H : TESTED A T [facility] 6720 (BEAKER) (test code = [facility] [employer] [facility], 1538) 64011: Monument Setter Helper/Techni kush ID = [id number] for Phyllis Rao PROTHROMBIN TIME/[id number] 11:48:00 Test Item Value Reference Range Interpretation [...] INR is2.5-3.5 for patients wiht mechanical heart valves.[id number] 09:34:00 Test Item Value Reference Range Interpretation Comments PARTIAL THROMBOPLASTIN TIME 74.6 seconds 22.5-36.0 H (BEAKER) (test code = 760) CBC W/PLT COUNT & AUTO [id number] 01:34:00 Test Item Value Reference Range Interpretation [...] (BEAKER) (test code = 2801) BASIC METABOLIC [id number] 01:29:00 Test Item Value Reference Range Interpretation [...] S NOT APPLICABLE FOR DIALYSIS PATIEN TS. Monument Setter Helper ID - PIAYA [id number] 01:13:00 Test Item Value Reference Range Interpretation Comments PARTIAL THROMBOPLASTIN TIME 56.4 seconds 22.5-36.0 H (BEAKER) (test code = 760) POCT-GLUCOSE [id number] 23:59:00 Test Item Value Reference Range Interpretation Comments POC-GLUCOSE METER 134 mg/dL 70-110 H : TESTED A T [facility] 6720 (BEAKER) (test code = [facility], 1538) 95670: Monument Setter Helper/Techni kush ID = [id number] for SCOOTER MIRZA [id number] 18:52:00 Test Item Value Reference Range Interpretation Comments PARTIAL THROMBOPLASTIN TIME 47.3 seconds 22.5-36.0 H (BEAKER) (test code = 760) [id number] 18:18:00 Test Item Value Reference Range Interpretation Comments PARTIAL THROMBOPLASTIN TIME > seconds 22.5-36.0 HH (BEAKER) (test code = 760) POCT-GLUCOSE [id number] 18:15:00 Test Item Value Reference Range Interpretation Comments POC-GLUCOSE METER 143 mg/dL 70-110 H : TESTED A T [facility] 6720 (BEAKER) (test code = [facility], 1538) 71050: Monument Setter Helper/Techni kush ID = [id number] for DO BBJUAN J, RANDI POCT-GLUCOSE [id number] 12:15:00 Test Item Value Reference Range Interpretation Comments POC-GLUCOSE METER 123 mg/dL 70-110 H : TESTED A T [facility] 6720 (BEAKER) (test code = [facility], 1538) 75826: Monument Setter Helper/Techni kush ID = [id number] for DO BBRANDI ARITA [id number] 11:28:00 Test Item Value Reference Range Interpretation Comments PARTIAL THROMBOPLASTIN TIME 57.3 seconds 22.5-36.0 H (BEAKER) (test code = 760) POCT-GLUCOSE [id number] 06:49:00 Test Item Value Reference Range Interpretation Comments POC-GLUCOSE METER 86 mg/dL 70-110 : TESTED A T [facility] 6720 (BEAKER) (test code = [facility], 1538) 88679: Monument Setter Helper/Techni kush ID = [id number] for SCOOTRE MAYA BASIC METABOLIC [id number] 06:19:00 Test Item Value Reference Range Interpretation [...] S NOT APPLICABLE FOR DIALYSIS PATIEN TS. Monument Setter Helper ID - PIAYA LCBC W/PLT COUNT & AUTO [id number] 04:57:00 Test Item Value Reference Range Interpretation [...] PERCENT (BEAKER) (test code = 2801) POCT-GLUCOSE [id number] 02:25:00 Test Item Value Reference Range Interpretation Comments POC-GLUCOSE METER 69 mg/dL 70-110 L : TESTED A T [facility] 6720 (BEAKER) (test code = [place], 1538) 6[address]: Monument Setter Helper/Techni kush ID = [id number] for MIHAELA PEREZ FL, FLUORO, NON-SPECIFIC, UP TO 1 [id number] 01:47:00Reason for exam:- >orif right femurFluoroscopic unit utilized for a procedure performed in the OR. No interpretation was requested. Refer to the operative report for findings. Refer to PACS for patient radiation dose information.FL fluoro non- specific up to 1 [id number] 01:47:00Interface, External Ris In - 02/28/2020 1:50 AM CDTFluoroscopic unit utilized for a procedure performed in the OR. No interpretation was requested. Refer to the operative report for findings. [place] PACS for patient radiation dose information.[facility] CenterAPTT2020-06-27 20:21:00 Test Item Value Reference Range Interpretation Comments PARTIAL THROMBOPLASTIN TIME 41.1 seconds 22.5-36.0 H (BEAKER) (test code = 760) 6 hours after starting heparin infusion and as indicated per sliding scale HEMODIALYSIS [id number] 18:35:06Alma Delia Rachel RN 02/27/2020 6:35 PMLab [...] Patient tolerated procedure well. Alma Delia Rachel RNWest [facility] CenterPOCT-GLUCOSE [id number] 17:57:00 Test Item Value Reference Range Interpretation Comments POC-GLUCOSE METER 82 mg/dL 70-110 : TESTED A T [facility] 6720 (BEAKER) (test code = MARIA GTAMMI Paul [facility], 1538) 08392: Monument Setter Helper/Techni kush ID = [id number] for ALMA DELIA PATHAK [id number] 17:14:00 Test Item Value Reference Range Interpretation Comments Ferritin (test code = 5182.19 ng/mL 5-275 H 2276-4) ALVIN (test code = ALVIN) Monument Setter Helper ID - JOEL Turner Lab Interpretation (test Abnormal code = 22570-7) [facility] CenterFERRITIN2020-06-27 17:14:00 Test Item Value Reference Range Interpretation Comments FERRITIN (BEAKER) (test code = 5182.19 ng/mL 5.00-275.00 H 361) Monument Setter Helper JOSE BARBOURron, TIBC, % sat. (without ferritin)2020-02-27 16:01:00 Test Item Value Reference Range Interpretation Comments Iron (test code = 2498-4) 125.0 ug/dL 40-160 TIBC (test code = 2500-7) 219 ug/dL 250-450 L Iron % Saturation (test 57 % 20-55 H code = 2502-3) ALVIN (test code = ALVIN) Monument Setter Helper ID - JOEL W Lab Interpretation (test Abnormal code = 86610-4) [facility] CenterIRON, TIBC, % SAT. (WITHOUT FERRITIN)2020-02-27 16:01:00 Test Item Value Reference Range Interpretation Comments IRON (BEAKER) (test code = 547) 125.0 ug/dL 40.0-160.0 TOTAL IRON BINDING CAPACITY 219 ug/dL 250-450 L (BEAKER) (test code = 769) IRON % SATURATION (2) (BEAKER) 57 % 20-55 H (test code = 2590) Monument Setter Helper ID Patel MALDONADO [id number] 12:54:00 Test Item Value Reference Range Interpretation Comments PARTIAL THROMBOPLASTIN TIME 41.5 seconds 22.5-36.0 H (BEAKER) (test code = 760) Prior to initiating heparinPlatelet [id number] 12:51:00 Test Item Value Reference Range Interpretation Comments Platelets (test code 116 See_Comment L [Autom ated = 777-3) message] The system which generated this result transmit jayla reference range : 150 - 450 K/CU MM. The reference range was not u sed to interpret th is result as normal/abnormal . ALVIN (test code = ALVIN) Monument Setter Helper ID - [id number] clot Lab Interpretation Abnormal (test code = 79539-7) [facility] CenterPLATELET [id number] 12:51:00 Test Item Value Reference Range Interpretation Comments PLATELET COUNT (BEAKER) (test 116 K/CU MM 150-450 L code = 756) Monument Setter Helper ID - [id number] clotSARS-CoV2/RT-PCR (Asymptomatic ONLY)2020-02-27 12:46:00 Test Item Value Reference Range Interpretation Comments SARS-COV2/RT-PCR Negative Not Detected, (test code = Negative 21854-8) SARS-COV-2 [facility] PERFORMING LAB (test code = 54754-6) ALVIN (test code = Negative result for [...] of the Act. Fact Sheet for Healthcare Providers:https://www.[employer]ul[employer]/sites/default/f mio/product/documents/F act_Sheet_HC_Providers_L yvp_BAKN-HpG-5.pdf Fact Sheet for Healthcare Patients:https://www.Answerology.[employer]/sites/default/fi les/product/documents/Fa ct_Sheet_Patients_Lyra_S ARS-CoV-2.pdf Performing Laboratory:[facility] [place] [address] [facility] CenterARS-COV2/[facility]-PCR ([facility])2020-02-27 12:46:00 Test Item Value Reference Range Interpretation Comments SARS-COV2/RT-PCR (test code = Negative Not Detected, Negative 7409626) SARS-COV-2 PERFORMING LAB [facility] (test code = 0741422) Negative result for this test determines that [...] 564(g) of the Act.Fact Sheet for Healthcare Providers:https://www.Spectral Diagnosticsidel.com/sites/default/files/product/documents/Fact_Shee c_OR_Jyyfwbaun_Vxgj_TDDT-GhL-4.pdfFact Sheet for Healthcare Patients:https://www.[employer].com/sites/default/files/product/ documents/Hqlo_Sdwre_Orwwipth_Xdrd_JGDO-QoU-4.pdfPerforming Laboratory:[facility], [place] [address]EMBG-ZZAHQVK METER 2020-02-27 12:12:00 Test Item Value Reference Range Interpretation Comments POC-GLUCOSE METER 90 mg/dL 70-110 : TESTED A T [facility] 6720 (BEAKER) (test code = [place], 1538) 169[address]: Monument Setter Helper/Techni kush ID = [id number] for SELENA BIRCH Hepatitis B surface [id number] 11:32:00 Test Item Value Reference Range Interpretation Comments HBsAg Screen (test code Nonreactive Nonreactive = 5195-3) ALVIN (test code = ALVIN) Specimen is considered negative for HBsAg. Lab Interpretation (test Normal code = 43408-0) [facility] CenterHEPATITIS B SURFACE [id number] 11:32:00 Test Item Value Reference Range Interpretation Comments HEPATITIS B SURFACE ANTIGEN (2) Nonreactive Nonreactive (BEAKER) (test code = 2585) Specimen is considered negative for HBsAg.RAD, WRIST, 2 VIEWS, [id number] 09:19:00Reason for exam:->fall, immbolityFINAL REPORT TECHNIQUE: Frontal, oblique, and lateral views of the left wrist. INDICATION: Fall immobility. COMPARISON: None. FINDINGS:No acute fractures or dislocations.Joint spaces are within normal limits.There are atherosclerotic calcifications of the vessels. Surgical clipsproject over the distal radius.. IMPRESSION:No acute osseous abnormality. Signed: Bhavin Artis Verified Date/Time: 02/27/2020 09:19:08 Reading Location: [address] Body ReadingRoom XR wrist 2 views [id number] 09:19:00Interface, External Ris In - 02/27/2020 9:21 AM CDTFINAL REPORT TECHNIQUE: Frontal, oblique, and lateral views of the left wrist. INDICATION: Fall immobility. COMPARISON: None. FINDINGS:No acute fractures or dislocations.Joint spaces are within normal limits.There are atherosclerotic calcifications of the vessels. Surgical clips project over the distal radius.. IMPRESSION:No acute osseous abnormality. Signed: Bhavin Artis Verified Date/Time: 02/27/2020 09:19:08 Reading Location: [address] Body Reading Room [facility] CenterAntibody [id number] 08:56:00 Test Item Value Reference Range Interpretation Comments ANTIBODY ID (BEAKER) UNID IgG (test code = 2253) Antibody Consult SIGNED OUT An IgG anti body of (test code = 2479) undetermi christian specificity is detected, trans fuse crossmatch comp atible RBCs.Electronic Signature: Rosendo cyndy Shirley M.D. [facility] CenterPotassium2020-06-27 08:30:00 Test Item Value Reference Range Interpretation Comments Potassium (test code = 5.0 meq/L 3.5-5.1 2823-3) ALVIN (test code = ALVIN) Monument Setter Helper ID - AKSHAT L Lab Interpretation (test Normal code = 23332-3) [facility] CenterPOTASSIUM2020-06-27 08:30:00 Test Item Value Reference Range Interpretation Comments POTASSIUM (BEAKER) (test code = 5.0 meq/L 3.5-5.1 379) Monument Setter Helper ID - AKSHAT LType and screen, [id number] 08:01:00 Test Item Value Reference Range Interpretation Comments ABO/RH AUTOMATED (BEAKER) (test AB POSITIVE code = 2260) Ab Scrn (test code = 890-4) POSITIVE ECHO 2 [facility] CenterRAD, PELVIS, 1 OR 2 [id number] 07:23:00Reason for exam:->femoral neck fxFINAL REPORT RAD, [...] MDReport Verified Date/Time: 02/27/2020 07:23:52 Reading Location: [address] Neuro Reading Room RAD, HIP, 2 VIEWS, [id number] 07:23:00Reason for exam:- >femoral neck fractureFINAL REPORT [...] Lisa Verified Date/Time: 02/27/2020 07:23:52 Reading Location: [address] Neuro Reading Room XR hip 2 views [id number] 07:23:00Interface, External Ris In - 02/27/2020 7:26 [...] Mihaela Lisa VerifiedDate/Time: 02/27/2020 07:23:52 Reading Location: [address] Neuro Reading [facility] 1 or 2 [id number] 07:23:00Interface, External Ris In - 02/27/2020 7:26 [...] ileoileal lines are intact. Signed: Mihaela Lisa MDRepdamion VerifiedDate/Time: 02/27/2020 07:23:52 Reading Location: [facility] C013 Neuro Reading Room [facility] POCT-GLUCOSE [id number] 06:26:00 Test Item Value Reference Range Interpretation Comments POC-GLUCOSE METER 72 mg/dL 70-110 : TESTED A T [facility] 6720 (BEAKER) (test code = [place], 1538) [address]: Monument Setter Helper/Techni kush ID = [id number] for BRITNEY BRISAALEJANDROSCOOTER Comprehensive metabolic [id number] 02:44:00 Test Item Value Reference Range Interpretation Comments Protein, Total (test 9.6 See_Comment H [Autom ated code = 2885-2) message] The system which generated this result transmit jayla reference range : 6.0 - 8.3 gm/dL . The reference range was not u sed to interpret th is result as normal/abnormal . Albumin (test code = 4.3 g/dL 3.5-5 13859-5) Alkaline Phosphatase 85 U/L 40-150 (test code = 6768-6) Total Bilirubin (test 1.1 mg/dL 0.2-1.2 code = 1975-2) Sodium (test code = 132 meq/L 136-145 L 2951-2) Potassium (test code 5.9 meq/L 3.5-5.1 H = 2823-3) Chloride (test code = 91 meq/L 98-107 L 2075-0) CO2 (test code = 24 meq/L 22-29 8-9) BUN (test code = 58 mg/dL 7-21 H 3094-0) Creatinine (test code 8.80 mg/dL 0.57-1.25 H = 2160-0) Glucose (test code = 99 mg/dL 70-105 2345-7) Calcium (test code = 9.2 mg/dL 8.4-10.2 61670-6) AST (test code = 44 U/L 5-34 H 1920-8) ALT (test code = 36 U/L 6-55 1742-6) EGFR (test code = 7 mL/min/1.73 [place] [address]-7) NOT ACCURATE CREATININE CLEARANCE IN PREDICTING GLOMERULAR FILTRATION RATE . ESTIMATED GFR I S NOT APPLICABLE FOR DIALYSIS PATIEN TS. ALVIN (test code = ALVIN) Monument Setter Helper ID - AKSHAT L Lab Interpretation Abnormal (test code = 40344-9) [facility] CenterCOMPREHENSIVE METABOLIC [id number] 02:44:00 Test Item Value Reference Range Interpretation [...] S NOT APPLICABLE FOR DIALYSIS PATIEN TS. Monument Setter Helper ID - PIAYA LPROTHROMBIN TIME/[id number] 02:03:00 Test Item Value Reference Range Interpretation [...] INR is2.5-3.5 for patients wiht mechanical heart valves.Vnnyokdwb1455-51-95 01:56:00 Test Item Value Reference Range Interpretation Comments Magnesium (test code = 1.9 mg/dL 1.6-2.6 83591-4) ALVIN (test code = ALVIN) Monument Setter Helper ID - AKSHAT L Lab Interpretation (test Normal code = 12168-1) [facility] CenterPhosphorus2020-06-27 01:56:00 Test Item Value Reference Range Interpretation Comments Phosphorus (test code = 7.3 mg/dL 2.3-4.7 H 2777-1) ALVIN (test code = ALVIN) Monument Setter Helper ID - JIMYJESSE L Lab Interpretation (test Abnormal code = 22095-3) [facility] CenterPHOSPHORUS2020-06-27 01:56:00 Test Item Value Reference Range Interpretation Comments PHOSPHORUS (BEAKER) (test code = 7.3 mg/dL 2.3-4.7 H 604) Monument Setter Helper ID - AKSHAT TNPZPVLJDM9932-27-77 01:56:00 Test Item Value Reference Range Interpretation Comments MAGNESIUM (BEAKER) (test code = 1.9 mg/dL 1.6-2.6 627) Monument Setter Helper ID - AKSHAT LCBC W/PLT COUNT & AUTO [id number] 01:33:00 Test Item Value Reference Range Interpretation [...] (test code = 2801) AFB CULTURE + [id number] 07:33:00 Test Item Value Reference Range Interpretation Comments CULTURE (BEAKER) (test No acid-fast bacilli code = 1095) isolated in 42 days AFB SMEAR (BEAKER) No acid fast bacilli (test code = 994) seen FUNGUS CULTURE + [id number] 17:26:00 Test Item Value Reference Range Interpretation Comments [facility] (test No fungus isolated in code = 1095) 28 days FUNGUS SMEAR ([facility]) No fungi seen (test code = 1406) POCT-GLUCOSE [id number] 13:35:00 Test Item Value Reference Range Interpretation Comments POC-GLUCOSE METER 116 mg/dL 70-110 H TESTED AT [facility] 67 ([facility]) (test code = FOSTER Paul [place] 1538) [address] POCT-GLUCOSE [id number] 08:54:00 Test Item Value Reference Range Interpretation Comments POC-GLUCOSE METER 99 mg/dL 70-110 TESTED AT [facility] 6720 ([facility]) (test code = FOSTER Paul [facility] [address] 1538) [id number] 06:34:00 Test Item Value Reference Range Interpretation Comments PARTIAL THROMBOPLASTIN TIME 46.7 seconds 22.5-36.0 H (AKER) (test code = 760) While on warfarin.PROTHROMBIN TIME/[id number] 06:33:00 Test Item Value Reference Range Interpretation Comments PROTIME ([facility]) (test code = 26.5 seconds 11.7-14.7 H 759) INR ([facility]) (test code = 370) 2.6 <=5.9 RECOMMENDED [...] H (BEAKER) (test code = 413) POCT-GLUCOSE [id number] 21:38:00 Test Item Value Reference Range Interpretation Comments POC-GLUCOSE METER 192 mg/dL 70-110 H TESTED AT [facility] 6720 (BEAKER) (test code = FOSTER [place] 1538) [id number] POCT-GLUCOSE [id number] 13:01:00 Test Item Value Reference Range Interpretation Comments POC-GLUCOSE METER 200 mg/dL 70-110 H TESTED AT [facility] 67 ([facility]) (test code = [place] 1538) [address] POCT-GLUCOSE [id number] 08:00:00 Test Item Value Reference Range Interpretation Comments POC-GLUCOSE METER 123 mg/dL 70-110 H TESTED AT [facility] 6720 ([facility]) (test code = [place] 1538) [address] [id number] 06:40:00 Test Item Value Reference Range Interpretation Comments PARTIAL THROMBOPLASTIN TIME 83.1 seconds 22.5-36.0 H ([facility]) (test code = 760) [id number] 05:54:00 Test Item Value Reference Range Interpretation Comments PARTIAL THROMBOPLASTIN TIME > seconds 22.5-36.0 HH ([facility]) (test code = 760) PROTHROMBIN [id number] 05:30:00 Test Item Value Reference Range Interpretation Comments PROTIME ([facility]) (test code = 24.1 seconds 11.7-14.7 H 759) INR ([facility]) (test code = 370) 2.3 <=5.9 RECOMMENDED [...] (BEAKER) (test code = 413) BASIC METABOLIC [id number] 05:10:00 Test Item Value Reference Range Interpretation [...] APPLICABLE FOR DIALYSIS PATIEN TS. OCCULT BLOOD, [id number] 23:46:00 Test Item Value Reference Range Interpretation Comments FECAL OCCULT BLOOD (BEAKER) (test Negative Negative code = 618) POCT-GLUCOSE [id number] 22:52:00 Test Item Value Reference Range Interpretation Comments POC-GLUCOSE METER 192 mg/dL 70-110 H TESTED AT [facility] 6720 (BEAKER) (test code = [place] 1538) [address] POCT-GLUCOSE [id number] 17:11:00 Test Item Value Reference Range Interpretation Comments POC-GLUCOSE METER 149 mg/dL 70-110 H TESTED AT [place] [address] ([facility]) (test code = FOSTER Paul [place] 1538) [address] PROTHROMBIN [id number] 13:00:00 Test Item Value Reference Range Interpretation Comments PROTIME ([facility]) (test code = 19.9 seconds 11.7-14.7 H 759) INR ([facility]) (test code = 370) 1.8 <=5.9 RECOMMENDED COUMADIN/WARFARIN INR THERAPY RANGESSTANDARD DOSE: 2.0 - 3.0 Includes: PROPHYLAXIS forvenous thrombosis, systemic embolization; TREATMENT for venous thrombosis and/or pulmonary embolus.HIGH RISK: Target INR is 2.5-3.5 for patients with mechanical heart valves.While on warfarin.POCT-GLUCOSE METER 2019-01-04 12:14:00 Test Item Value Reference Range Interpretation Comments POC-GLUCOSE METER 134 mg/dL 70-110 H TESTED AT [place] [address] ([facility]) (test code = FOSTER Paul [facility] 1538) [address] RAD, CHEST, 1 VIEW, NON [id number] 08:02:00Reason for exam:->Post opShould this be performed [...] MDReport Verified Date/Time: 01/04/2019 08:02:18 Reading Location: [address] Consult Reading Room Electronicallysigned by: EDENILSON BLOOM M.D. on 01/04/2019 08:02 AMPOCT-GLUCOSE [id number] 07:42:00 Test Item Value Reference Range Interpretation Comments POC-GLUCOSE METER 98 mg/dL 70-110 TESTED AT [place] [address] ([facility]) (test code = FOSTER Paul [facility] [address] 1538) BASIC METABOLIC [id number] 07:28:00 Test Item Value Reference Range Interpretation [...] BLOOD CELLS 1 /100 WBC 0-0 H ([facility]) (test code = 413) [id number] 06:08:00 Test Item Value Reference Range Interpretation Comments PARTIAL THROMBOPLASTIN TIME 70.6 seconds 22.5-36.0 H ([facility]) (test code = 760) [id number] 23:32:00 Test Item Value Reference Range Interpretation Comments PARTIAL THROMBOPLASTIN TIME 77.2 seconds 22.5-36.0 H ([facility]) (test code = 760) POCT-GLUCOSE [id number] 21:55:00 Test Item Value Reference Range Interpretation Comments POC-GLUCOSE METER 150 mg/dL 70-110 H TESTED AT [facility] 6720 ([facility]) (test code = FOSTER Paul [place] [id number]) [address] [id number] 18:25:00 Test Item Value Reference Range Interpretation Comments PARTIAL THROMBOPLASTIN TIME 71.2 seconds 22.5-36.0 H ([facility]) (test code = 760) POCT-GLUCOSE [id number] 13:45:00 Test Item Value Reference Range Interpretation Comments POC-GLUCOSE METER 375 mg/dL 70-110 H Notified R Jun PÉREZ/TESTED ([facility]) (test code = AT [facility] 67[address] [place] [address]) [facility] [address] [id number] 10:26:00 Test Item Value Reference Range Interpretation Comments PARTIAL THROMBOPLASTIN TIME 94.0 seconds 22.5-36.0 H ([facility]) (test code = 760) While on warfarin.PROTHROMBIN TIME/[id number] 10:24:00 Test Item Value Reference Range Interpretation Comments PROTIME ([facility]) (test code = 19.3 seconds 11.7-14.7 H 759) INR ([facility]) (test code = 370) 1.7 <=5.9 RECOMMENDED COUMADIN/WARFARIN INR THERAPY RANGESSTANDARD DOSE: 2.0 - 3.0 Includes: PROPHYLAXIS forvenous thrombosis, systemic embolization; TREATMENT for venous thrombosis and/or pulmonary embolus.HIGH RISK: Target INR is 2.5-3.5 for patients with mechanical heart valves.While on warfarin.POCT-GLUCOSE METER 2019-01-03 08:36:00 Test Item Value Reference Range Interpretation Comments POC-GLUCOSE METER 124 mg/dL 70-110 H TESTED AT [facility] 6720 (BEAKER) (test code = [place]OSTER [place] 1538) [address] RAD, CHEST, 1 VIEW, NON [id number] 08:19:00Reason for exam:->Post opShould this be performed [...] contours. Additional findings: None. Signed: Mihaela Lisa Verified Date/Time: 01/03/2019 08:19:51 Reading Location: [address] Neuro Reading Room [id number] 03:31:00 Test Item Value Reference Range Interpretation Comments PARTIAL THROMBOPLASTIN TIME 64.2 seconds 22.5-36.0 H (BEAKER) (test code = 760) BASIC METABOLIC [id number] 03:21:00 Test Item Value Reference Range Interpretation [...] H (BEAKER) (test code = 413) POCT-GLUCOSE [id number] 22:54:00 Test Item Value Reference Range Interpretation Comments POC-GLUCOSE METER 206 mg/dL 70-110 H TESTED AT [facility] 67 ([facility]) (test code = FOSTER [place] 1538) [address] [id number] 19:36:00 Test Item Value Reference Range Interpretation Comments PARTIAL THROMBOPLASTIN TIME 79.3 seconds 22.5-36.0 H (AKER) (test code = 760) POCT-GLUCOSE [id number] 17:59:00 Test Item Value Reference Range Interpretation Comments POC-GLUCOSE METER 186 mg/dL 70-110 H TESTED AT [place] [address] ([facility]) (test code = FOSTER Paul [facility] 1538) [address] POCT-GLUCOSE [id number] 13:54:00 Test Item Value Reference Range Interpretation Comments POC-GLUCOSE METER 139 mg/dL 70-110 H TESTED AT [place] [id number] ([facility]) (test code = FOSTER Paul [facility] 1538) [address] POCT-GLUCOSE [id number] 13:05:00 Test Item Value Reference Range Interpretation Comments POC-GLUCOSE METER 163 mg/dL 70-110 H TESTED AT [place] [address] ([facility]) (test code = FOSTER Paul [facility] 1538) [address] [id number] 12:49:00 Test Item Value Reference Range Interpretation Comments PARTIAL THROMBOPLASTIN TIME 64.9 seconds 22.5-36.0 H ([facility]) (test code = 760) OCCULT BLOOD, [id number] 12:31:00 Test Item Value Reference Range Interpretation Comments FECAL OCCULT BLOOD ([facility]) (test Negative Negative code = 618) RAD, CHEST, 1 VIEW, NON [id number] 10:37:00Reason for exam:->Post opShould this be performed [...] IMPRESSION: No significant change. Signed: Jori Mejia MDRepdamion Verified Date/Time: 01/02/2019 10:37:35 Reading Loc ation: ARTURO Michelle Brendan Radiology Reading Room POCT-GLUCOSE [id number] 08:07:00 Test Item Value Reference Range Interpretation Comments POC-GLUCOSE METER 107 mg/dL 70-110 TESTED AT [facility] 6720 (BEAKER) (test code = FOSTER [place] 1538) [address] [id number] 04:48:00 Test Item Value Reference Range Interpretation Comments PARTIAL THROMBOPLASTIN TIME 106.0 seconds 22.5-36.0 H (BEAKER) (test code = 760) While on warfarin.BASIC METABOLIC [id number] 04:48:00 Test Item Value Reference Range Interpretation [...] NOT APPLICABLE FOR DIALYSIS PATIEN TS. PROTHROMBIN [id number] 04:39:00 Test Item Value Reference Range Interpretation [...] 0-0 (BEAKER) (test code = 413) POCT-GLUCOSE [id number] 22:17:00 Test Item Value Reference Range Interpretation Comments POC-GLUCOSE METER 117 mg/dL 70-110 H TESTED AT [facility] 6720 ([facility]) (test code = [place]OSTER [place] 1538) [address] RAD, CHEST, 1 VIEW, NON [id number] 19:40:00Reason for exam:->Post opShould this be performed [...] IMPRESSION: No interval change. Signed: Edenilson Bloom [facility] Verified Date/Time: 01/01/2019 19:40:01 Reading Location: [facility] B1 C013W Consult Reading Room POCT-GLUCOSE [id number] 18:22:00 Test Item Value Reference Range Interpretation Comments POC-GLUCOSE METER 159 mg/dL 70-110 H TESTED AT [place] [address] ([facility]) (test code = [facility] 1538) [address] POCT-GLUCOSE [id number] 14:12:00 Test Item Value Reference Range Interpretation Comments POC-GLUCOSE METER 135 mg/dL 70-110 H TESTED AT [place] [address] ([facility]) (test code = [facility] 1538) [address] HEPATITIS B SURFACE [id number] 11:52:00 Test Item Value Reference Range Interpretation Comments HEPATITIS B SURFACE ANTIGEN (2) Nonreactive Nonreactive (BEAKER) (test code = 2585) POCT-GLUCOSE [id number] 08:40:00 Test Item Value Reference Range Interpretation Comments POC-GLUCOSE METER 85 mg/dL 70-110 TESTED AT [place] [address] ([facility]) (test code = [facility] [address] 1538) BASIC METABOLIC [id number] 04:17:00 Test Item Value Reference Range Interpretation [...] S NOT APPLICABLE FOR DIALYSIS PATIEN TS. [id number] 03:40:00 Test Item Value Reference Range Interpretation Comments PARTIAL THROMBOPLASTIN TIME 84.1 seconds 22.5-36.0 H (BEAKER) (test code = 760) While on warfarin.PROTHROMBIN TIME/[id number] 03:39:00 Test Item Value Reference Range Interpretation [...] 0-0 (BEAKER) (test code = 413) POCT-GLUCOSE [id number] 22:08:00 Test Item Value Reference Range Interpretation Comments POC-GLUCOSE METER 194 mg/dL 70-110 H TESTED AT [place] [address] ([facility]) (test code = FOSTER [place] 1538) [address] POCT-GLUCOSE [id number] 22:03:00 Test Item Value Reference Range Interpretation Comments POC-GLUCOSE METER 203 mg/dL 70-110 H TESTED AT [place] [address] ([facility]) (test code = FOSTER Paul [facility] 1538) [address] POCT-GLUCOSE [id number] 21:42:00 Test Item Value Reference Range Interpretation Comments POC-GLUCOSE METER 42 mg/dL 70-110 L TESTED AT [place] [address] ([facility]) (test code = FOSTER Paul [facility] [address] 1538) [id number] 21:35:00 Test Item Value Reference Range Interpretation Comments PARTIAL THROMBOPLASTIN TIME 80.4 seconds 22.5-36.0 H ([facility]) (test code = 760) POCT-GLUCOSE [id number] 18:03:00 Test Item Value Reference Range Interpretation Comments POC-GLUCOSE METER 144 mg/dL 70-110 H TESTED AT [place] [address] ([facility]) (test code = FOSTER Paul [facility] 1538) [address] TISSUE [id number] 16:33:00Surgical Pathology Report Case: [id number] Authorizing Provider: Enmanuel Sharma Collected: 12/26/2018 1537 MD Liban OrderingLocation: [address] Received: 12/29/2018 0814 Service Pathologist: Brigida [...] stains. GMSImmunohistochemistry technical testing was performed at [facility], Pathology Laboratory where it was developed and [...] toperform high complexity clinical laboratory testing.CPT CODE: [id number] electronically signed byBrigida Parks MD on 12/31/2018 [...] ARE NEGATIVE Signing Pathologist Direct Phone Line: [phone] signed by Brigida Parks MD on 12/30/2018 at 6:43 PMPreliminary result electronically signed by Brigida Parks MD on 12/29/2018 at 4:54 [id number] X 2; 46954; 49901; 51364 X 2Upper endoscopy, biopsyPreoperative and postoperative diagnosis: [...] AND CMVImmunohistochemistry technical testing was performed at [facility], Pathology Laboratory where it was developed and [...] qualified toperform high complexity clinical laboratory testing.POCT-GLUCOSE [id number] 13:57:00 Test Item Value Reference Range Interpretation Comments POC-GLUCOSE METER 178 mg/dL 70-110 H TESTED AT [place] [address] ([facility]) (test code = FOSTER Paul [place] 1538) [address] [id number] 12:54:00 Test Item Value Reference Range Interpretation Comments PARTIAL THROMBOPLASTIN TIME 69.4 seconds 22.5-36.0 H ([facility]) (test code = 760) RAD, CHEST, 1 VIEW, NON [id number] 09:26:00Reason for exam:->Post opShould this be performed [...] MDReport Verified Date/Time: 12/31/2018 09:26:31 Reading Location: [facility] Radiology Reading Room POCT-GLUCOSE [id number] 09:01:00 Test Item Value Reference Range Interpretation Comments POC-GLUCOSE METER 162 mg/dL 70-110 H TESTED AT [place] [address] ([facility]) (test code = [place]ER [place] 1538) [address] BASIC METABOLIC [id number] 06:50:00 Test Item Value Reference Range Interpretation [...] NOT APPLICABLE FOR DIALYSIS PATIEN TS. PROTHROMBIN [id number] 06:38:00 Test Item Value Reference Range Interpretation Comments PROTIME (BEAK[facility]) (test code = 19.1 seconds 11.7-14.7 H 759) INR (BEAKER) (test code = 370) 1.7 <=5.9 RECOMMENDED COUMADIN/WARFARIN INR THERAPY RANGESSTANDARD DOSE: 2.0 - 3.0 Includes: PROPHYLAXIS forvenous thrombosis, systemic embolization; TREATMENT for venous thrombosis and/or pulmonary embolus.HIGH RISK: Target INR is 2.5-3.5 for patients with mechanical heart valves.While on warfarin.[id number] 06:37:00 Test Item Value Reference Range Interpretation [...] (BEAKER) (test code = 412) PLATELET COUNT ([facility]) (test 156 K/CU MM 150-450 code = 756) MEAN PLATELET VOLUME (AKER) 8.7 fL 9.4-12.4 L (test code = 754) NUCLEATED RED BLOOD CELLS 0 /100 WBC 0-0 ([facility]) (test code = 413) POCT-GLUCOSE [id number] 00:45:00 Test Item Value Reference Range Interpretation Comments POC-GLUCOSE METER 124 mg/dL 70-110 H TESTED AT [place] [address] ([facility]) (test code = [place]ER [place] 1538) [address] [id number] 19:14:00 Test Item Value Reference Range Interpretation Comments PARTIAL THROMBOPLASTIN TIME 57.8 seconds 22.5-36.0 H ([facility]) (test code = 760) POCT-GLUCOSE [id number] 17:53:00 Test Item Value Reference Range Interpretation Comments POC-GLUCOSE METER 133 mg/dL 70-110 H TESTED AT [place] [address] ([facility]) (test code = [place] 1538) [address] POCT-GLUCOSE [id number] 13:19:00 Test Item Value Reference Range Interpretation Comments POC-GLUCOSE METER 147 mg/dL 70-110 H TESTED AT [place] [address] ([facility]) (test code = F[place]ER [place] 1538) [address] [id number] 12:43:00 Test Item Value Reference Range Interpretation Comments PARTIAL THROMBOPLASTIN TIME 57.0 seconds 22.5-36.0 H ([facility]) (test code = 760) [id number] 10:17:00 Test Item Value Reference Range Interpretation Comments PARTIAL THROMBOPLASTIN TIME 134.5 seconds 22.5-36.0 H (BEAKER) (test code = 760) POCT-GLUCOSE [id number] 07:43:00 Test Item Value Reference Range Interpretation Comments POC-GLUCOSE METER 107 mg/dL 70-110 TESTED AT [facility] 6720 (BEAKER) (test code = F[place]ER [place] 1538) [address] BASIC METABOLIC [id number] 06:46:00 Test Item Value Reference Range Interpretation [...] PATIEN TS. RAD, CHEST, 1 VIEW, NON [id number] 06:25:00Reason for exam:->Post opShould this be performed [...] Stable surgical changes.Additional findings: None. Signed: Mihaela Lisaeport Verified Date/Time: 12/30/2018 06:25:51 Reading Location: [facility] B1 C013V Neuro Reading Room PROTHROMBIN [id number] 06:06:00 Test Item Value Reference Range Interpretation [...] 0-0 (BEAKER) (test code = 413) POCT-GLUCOSE [id number] 22:19:00 Test Item Value Reference Range Interpretation Comments POC-GLUCOSE METER 179 mg/dL 70-110 H TESTED AT [facility] 67 ([facility]) (test code = [place] 1538) [address] POCT-GLUCOSE [id number] 17:39:00 Test Item Value Reference Range Interpretation Comments POC-GLUCOSE METER 181 mg/dL 70-110 H TESTED AT [place] [address] ([facility]) (test code = FOSTER Paul [place] 1538) [address] POCT-GLUCOSE [id number] 13:14:00 Test Item Value Reference Range Interpretation Comments POC-GLUCOSE METER 102 mg/dL 70-110 TESTED AT [place] [address] ([facility]) (test code = FOSTER Paul [facility] 1538) [address] RAD, CHEST, 1 VIEW, NON [id number] 08:56:00Reason for exam:->Post opShould this be performed [...] Bloom Verified Date/Time: 12/29/2018 08:56:32 Reading Location: [facility] Radiology Reading Room Electronically signed by: EDENILSON BLOOM M.D.on 12/29/2018 08:56 AMPOCT-GLUCOSE [id number] 07:53:00 Test Item Value Reference Range Interpretation Comments POC-GLUCOSE METER 135 mg/dL 70-110 H TESTED AT [facility] 67 ([facility]) (test code = FOSTER Paul [facility] 1538) [address] [id number] 06:45:00 Test Item Value Reference Range Interpretation Comments PARTIAL THROMBOPLASTIN TIME 83.5 seconds 22.5-36.0 H ([facility]) (test code = 760) While on warfarin.PROTHROMBIN TIME/[id number] 06:44:00 Test Item Value Reference Range Interpretation [...] MEAN CORPUSCULAR HEMOGLOBIN CONC 32.7 GM/DL 32.3-36.5 ([facility]) (test code = 752) RED CELL DISTRIBUTION WIDTH 15.6 % 11.6-14.4 H (AKER) (test code = 412) PLATELET COUNT ([facility]) (test 131 K/CU MM 150-450 L code = 756) MEAN PLATELET VOLUME (AKER) 9.1 fL 9.4-12.4 L (test code = 754) NUCLEATED RED BLOOD CELLS 0 /100 WBC 0-0 ([facility]) (test code = 413) [id number] 00:01:00 Test Item Value Reference Range Interpretation Comments PARTIAL THROMBOPLASTIN TIME 78.5 seconds 22.5-36.0 H ([facility]) (test code = 760) POCT-GLUCOSE [id number] 21:26:00 Test Item Value Reference Range Interpretation Comments POC-GLUCOSE METER 139 mg/dL 70-110 H TESTED AT [place] [address] ([facility]) (test code = [place] 1538) [address] POCT-GLUCOSE [id number] 17:58:00 Test Item Value Reference Range Interpretation Comments POC-GLUCOSE METER 146 mg/dL 70-110 H TESTED AT [place] [address] ([facility]) (test code = [place] 1538) [address] [id number] 17:16:00 Test Item Value Reference Range Interpretation Comments PARTIAL THROMBOPLASTIN TIME 34.5 seconds 22.5-36.0 ([facility]) (test code = 760) Prior to initiating heparinPOCT-GLUCOSE [id number] 12:54:00 Test Item Value Reference Range Interpretation Comments POC-GLUCOSE METER 133 mg/dL 70-110 H TESTED AT [place] [address] ([facility]) (test code = [place] 1538) [address] RAD, CHEST, 1 VIEW, NON [id number] 08:06:00Reason for exam:->Post opShould this be performed at the bedside?->YesFINAL REPORT Chest one view. Clinical history: Post op Comparison: 12/27/2018 Discussion: A frontal chest is provided. Cardiomediastinal contours are unchanged. Lines and tubesare in stable position. Unchanged right-sided pleural-parenchymal opacities. Left lung is grossly clear. Vessels do not appear engorged. No pneumothorax. Signed: Letty Chery MDReport Verified Date/Time: 12/28/2018 08:06:07 Reading Location: [facility] C013V Neuro Reading Room BASIC METABOLIC [id number] 06:52:00 Test Item Value Reference Range Interpretation [...] NOT APPLICABLE FOR DIALYSIS PATIEN TS. PROTHROMBIN [id number] 06:31:00 Test Item Value Reference Range Interpretation [...] 0-0 (BEAKER) (test code = 413) POCT-GLUCOSE [id number] 21:41:00 Test Item Value Reference Range Interpretation Comments POC-GLUCOSE METER 163 mg/dL 70-110 H TESTED AT [place] [address] ([facility]) (test code = FOSTER Paul [facility] 1538) [address] POCT-GLUCOSE [id number] 17:23:00 Test Item Value Reference Range Interpretation Comments POC-GLUCOSE METER 119 mg/dL 70-110 H TESTED AT [place] [id number] ([facility]) (test code = [facility] Laura [facility] 1538) [address] RAD, CHEST, 1 VIEW, NON [id number] 14:49:00Reason for exam:->Post opShould this be performed [...] MDReport Verified Date/Time: 12/27/2018 14:49:48 Reading Location: [facility] C013X Ortho Consult Reading Room ANG, NON-TUNNELED CATH >5 Y.O. [id number] 14:17:00Reason for exam:->Central line placement, poor access, [...] guide wire was advanced centrally. A 7 Indonesian 20 cm triple lumen catheter was advanced [...] MDReport Verified Date/Time: 12/27/2018 14:17:02 Reading Location: [place] [id number] Angio Body Reading Room [id number] 13:44:00 Test Item Value Reference Range Interpretation Comments PARTIAL THROMBOPLASTIN TIME 44.3 seconds 22.5-36.0 H (BEAKER) (test code = 760) Prior to initiating heparinPOCT-GLUCOSE [id number] 13:27:00 Test Item Value Reference Range Interpretation Comments POC-GLUCOSE METER 127 mg/dL 70-110 H TESTED AT [facility] [address] ([facility]) (test code = [facility] 1538) [address] POCT-GLUCOSE [id number] 08:58:00 Test Item Value Reference Range Interpretation Comments POC-GLUCOSE METER 79 mg/dL 70-110 TESTED AT [facility] [address] ([facility]) (test code = [facility] [address] 1538) BASIC METABOLIC [id number] 07:09:00 Test Item Value Reference Range Interpretation [...] NOT APPLICABLE FOR DIALYSIS PATIEN TS. PROTHROMBIN TIME/[id number] 06:52:00 Test Item Value Reference Range Interpretation [...] WBC 0-0 (test code = 413) POCT-GLUCOSE [id number] 23:54:00 Test Item Value Reference Range Interpretation Comments POC-GLUCOSE METER 73 mg/dL 70-110 TESTED AT [facility] [address] (BEAKER) (test code = [place] [address] 1538) POCT-GLUCOSE [id number] 16:02:00 Test Item Value Reference Range Interpretation Comments POC-GLUCOSE METER 108 mg/dL 70-110 TESTED AT [facility] (BEAKER) (test code = [place] Paul [facility] 1538) [address] POCT-GLUCOSE [id number] 15:24:00 Test Item Value Reference Range Interpretation Comments POC-GLUCOSE METER 74 mg/dL 70-110 TESTED AT [facility] [address] (BEAKER) (test code = [place] Paul [facility] [address] 1538) POCT-GLUCOSE [id number] 10:29:00 Test Item Value Reference Range Interpretation Comments POC-GLUCOSE METER 88 mg/dL 70-110 TESTED AT [facility] ([facility]) (test code = [place] Paul [facility] [address] 1538) RAD, CHEST, 1 VIEW, NON [id number] 07:33:00Reason for exam:->Post opShould this be performed [...] IMPRESSION: No significant change. Signed: Jori Mejia Verified Date/Time: 12/26/2018 07:33:38 Reading Location: [facility] Radiology Reading Room BASIC METABOLIC [id number] 06:42:00 Test Item Value Reference Range Interpretation [...] 0-0 H (test code = 413) PROTHROMBIN [id number] 05:44:00 Test Item Value Reference Range Interpretation Comments PROTIME (BEAKER) (test code = 24.4 seconds 11.7-14.7 H 759) INR (BEAKER) (test code = 370) 2.2 <=5.9 RECOMMENDED COUMADIN/WARFARIN INR THERAPY RANGESSTANDARD DOSE: 2.0 - 3.0 Includes: PROPHYLAXIS forvenous thrombosis, systemic embolization; TREATMENT for venous thrombosis and/or pulmonary embolus.HIGH RISK: Target INR is 2.5-3.5 for patients with mechanical heart valves.POCT-GLUCOSE [id number] 00:06:00 Test Item Value Reference Range Interpretation Comments POC-GLUCOSE METER 88 mg/dL 70-110 TESTED AT [facility] [address] ([facility]) (test code = [facility] [address] 1538) POCT-GLUCOSE [id number] 19:06:00 Test Item Value Reference Range Interpretation Comments POC-GLUCOSE METER 121 mg/dL 70-110 H TESTED AT [place] [address] ([facility]) (test code = [facility] 1538) [address] PROTHROMBIN [id number] 16:10:00 Test Item Value Reference Range Interpretation Comments PROTIME (BEAKER) (test code = 30.1 seconds 11.7-14.7 H 759) INR (BEAKER) (test code = 370) 2.9 <=5.9 RECOMMENDED COUMADIN/WARFARIN INR THERAPY RANGESSTANDARD DOSE: 2.0 - 3.0 Includes: PROPHYLAXIS forvenous thrombosis, systemic embolization; TREATMENT for venous thrombosis and/or pulmonary embolus.HIGH RISK: Target INR is 2.5-3.5 for patients with mechanical heart valves.BASIC METABOLIC [id number] 16:10:00 Test Item Value Reference Range Interpretation [...] S NOT APPLICABLE FOR DIALYSIS PATIEN TS. [id number] 16:09:00 Test Item Value Reference Range Interpretation [...] 0-0 H (test code = 413) POCT-GLUCOSE [id number] 08:03:00 Test Item Value Reference Range Interpretation Comments POC-GLUCOSE METER 89 mg/dL 70-110 TESTED AT [facility] [address] (BEAKER) (test code = [place] [address] 1538) RAD, CHEST, 1 VIEW, NON [id number] 07:46:00Reason for exam:->Post opShould this be performed at the bedside?->YesFINAL REPORT Chest one view. Clinical history: Post op Comparison: 12/24/2018 Discussion: A frontal chest is provided. Cardiomediastinal contours are unchanged. Stable appearance of pleural-parenchymal opacity at the right mid to lower lung. There is a tiny right apical pneumothorax, unchanged. Probable trace left effusion. Signed: Letty Chery Verified Date/Time: 07:46:01 Reading Location: [facility] Radiology Reading Room RAD, ABDOMEN/KUB, 1 VIEW [id number] 07:25:00Reason for exam:->abdominal distentionShould this be performed [...] Chery Verified Date/Time: 12/25/2018 07:25:40 Reading Location: [facility] Radiology Reading Room POCT-GLUCOSE [id number] 22:06:00 Test Item Value Reference Range Interpretation Comments POC-GLUCOSE METER 102 mg/dL 70-110 TESTED AT [place] [address] ([facility]) (test code = FOSTER Paul [facility] 1538) [address] POCT-GLUCOSE [id number] 18:44:00 Test Item Value Reference Range Interpretation Comments POC-GLUCOSE METER 100 mg/dL 70-110 TESTED AT [place] [address] ([facility]) (test code = MARIA GMN Laura [facility] 1538) [address] POCT-GLUCOSE [id number] 14:54:00 Test Item Value Reference Range Interpretation Comments POC-GLUCOSE METER 103 mg/dL 70-110 TESTED AT [place] [address] ([facility]) (test code = [facility] Laura [facility] 1538) [address] [id number] 08:07:00 Test Item Value Reference Range Interpretation Comments FERRITIN (BEAKER) (test code = 2044 ng/mL 5-275 H 361) POCT-GLUCOSE [id number] 07:57:00 Test Item Value Reference Range Interpretation Comments POC-GLUCOSE METER 76 mg/dL 70-110 TESTED AT [facility] [address] (BEAKER) (test code = [place] [address] 1538) RAD, CHEST, 1 VIEW, NON [id number] 07:57:00Reason for exam:->Post opShould this be performed [...] MDReport Verified Date/Time: 12/24/2018 07:57:06 Reading Location: [facility] Radiology Reading Room CBC (HEMOGRAM ONLY) [...] H (test code = 413) BASIC METABOLIC [id number] 07:14:00 Test Item Value Reference Range Interpretation [...] S NOT APPLICABLE FOR DIALYSIS PATIEN TS. [id number] 07:08:00 Test Item Value Reference Range Interpretation [...] % 20-55 (test code = 2590) PROTHROMBIN [id number] 07:05:00 Test Item Value Reference Range Interpretation Comments PROTIME (BEAKER) (test code = 38.7 seconds 11.7-14.7 H 759) INR ([facility]) (test code = 370) 3.9 <=5.9 RECOMMENDED COUMADIN/WARFARIN INR THERAPY RANGESSTANDARD DOSE: 2.0 - 3.0 Includes: PROPHYLAXIS forvenous thrombosis, systemic embolization; TREATMENT for venous thrombosis and/or pulmonary embolus.HIGH RISK: Target INR is 2.5-3.5 for patients with mechanical heart valves.POCT-GLUCOSE [id number] 00:26:00 Test Item Value Reference Range Interpretation Comments POC-GLUCOSE METER 86 mg/dL 70-110 TESTED AT [place] [address] ([facility]) (test code = [place] [address] 1538) POCT-GLUCOSE [id number] 00:26:00 Test Item Value Reference Range Interpretation Comments POC-GLUCOSE METER 137 mg/dL 70-110 H TESTED AT [place] [address] ([facility]) (test code = FOSTER [employer] [facility] 1538) [address] POCT-GLUCOSE [id number] 16:07:00 Test Item Value Reference Range Interpretation Comments POC-GLUCOSE METER 72 mg/dL 70-110 TESTED AT [place] [address] ([facility]) (test code = [place] [address] 1538) POCT-GLUCOSE [id number] 16:07:00 Test Item Value Reference Range Interpretation Comments POC-GLUCOSE METER 61 mg/dL 70-110 L TESTED AT [place] [address] ([facility]) (test code = [place] [address] 1538) POCT-GLUCOSE [id number] 11:27:00 Test Item Value Reference Range Interpretation Comments POC-GLUCOSE METER 82 mg/dL 70-110 TESTED AT [place] [address] ([facility]) (test code = [place] [address] 1538) POCT-GLUCOSE [id number] 10:32:00 Test Item Value Reference Range Interpretation Comments POC-GLUCOSE METER 43 mg/dL 70-110 L TESTED AT [place] [address] ([facility]) (test code = [place] [address] 1538) BASIC METABOLIC [id number] 07:28:00 Test Item Value Reference Range Interpretation Comments SODIUM ([facility]) 132 meq/L 136-145 L (test code = [...] S NOT APPLICABLE FOR DIALYSIS PATIEN TS. [id number] 07:24:00 Test Item Value Reference Range Interpretation Comments MAGNESIUM (BEAKER) 2.0 mg/dL 1.6-2.6 Specimen slightly (test code = 627) hemolyzed [id number] 07:24:00 Test Item Value Reference Range Interpretation Comments PHOSPHORUS (BEAKER) 4.4 mg/dL 2.3-4.7 Specimen slightly (test code = 604) hemolyzed PROTHROMBIN [id number] 07:20:00 Test Item Value Reference Range Interpretation [...] = 413) RAD, CHEST, 1 VIEW, NON [id number] 04:22:00Reason for exam:->Post opShould this be performed [...] no no definite pneumothorax. Signed: Raz Taylor Verified Date/Time: 12/23/2018 04:22:43 Reading Location: [facility] B1 C013Y CT Body Reading Room POCT-GLUCOSE [id number] 03:01:00 Test Item Value Reference Range Interpretation Comments POC-GLUCOSE METER 85 mg/dL 70-110 TESTED AT [facility] [address] (BEAKER) (test code = [place] [address] 1538) BASIC METABOLIC [id number] 18:52:00 Test Item Value Reference Range Interpretation [...] H (BEAKER) (test code = 413) ANAEROBIC [id number] 17:00:00 Test Item Value Reference Range Interpretation Comments CULTURE (BEAKER) (test No anaerobes isolated code = 1095) RAD, CHEST, 1 VIEW, NON [id number] 07:44:00Reason for exam:->Post opShould this be performed [...] would tell the doctor. Signed: Geoffrey Arteaga Verified Date/Time: 12/22/2018 07:44:12 Reading Location: [facility] Radiology Reading Room PROTHROMBIN [id number] 04:31:00 Test Item Value Reference Range Interpretation [...] METER 141 mg/dL 70-110 H TESTED AT [facility] 67[address] (JARROD) (test code = FOSTER Paul [facility] 1538) [address] POCT-GLUCOSE [id number] 13:22:00 Test Item Value Reference Range Interpretation Comments POC-GLUCOSE METER 100 mg/dL 70-110 TESTED AT [facility] 67[address] ([facility]) (test code = FOSTER Paul [facility] 1538) [address] RAD, CHEST, 1 VIEW, NON [id number] 08:01:00Reason for exam:->Post opShould this be performed [...] Lisa Verified Date/Time: 12/21/2018 08:01:46 Reading Location: [address] Neuro Reading Room PROTHROMBIN [id number] 05:30:00 Test Item Value Reference Range Interpretation [...] POC-GLUCOSE METER 98 mg/dL 70-110 TESTED AT [facility] [address] (BEAKER) (test code = FSOTER Paul [facility] [address] 1538) POCT-GLUCOSE [id number] 17:40:00 Test Item Value Reference Range Interpretation Comments POC-GLUCOSE METER 91 mg/dL 70-110 TESTED AT [facility] [address] (BEAKER) (test code = FOSTER Paul [facility] [address] 1538) POCT-GLUCOSE [id number] 13:13:00 Test Item Value Reference Range Interpretation Comments POC-GLUCOSE METER 73 mg/dL 70-110 TESTED AT [facility] [address] (BEAKER) (test code = FOSTER Paul [facility] [address] 1538) SURGICALLY OBTAINED CULTURE + GRAM [id number] 08:41:00 Test Item Value Reference Range Interpretation Comments CULTURE (BEAKER) (test No growth code = 1095) GRAM STAIN RESULT No White blood cells (BEAKER) (test code = seen 1123) GRAM STAIN RESULT No organisms seen (BEAKER) (test code = 97587) RAD, CHEST, 1 VIEW, NON [id number] 08:20:00Reason for exam:->Post opShould this be performed [...] None. Signed: Mihaela Lisa MDReport Verified Date/Time: 12/20/2018 08:20:58 Reading Location: [facility] C013V Neuro Reading Room BASIC METABOLIC [id number] 08:09:00 Test Item Value Reference Range Interpretation [...] S NOT APPLICABLE FOR DIALYSIS PATIEN TS. [id number] 08:00:00 Test Item Value Reference Range Interpretation Comments PHOSPHORUS (BEAKER) (test code = 4.5 mg/dL 2.3-4.7 604) CALCIUM, [id number] 07:20:00 Test Item Value Reference Range Interpretation Comments CALCIUM IONIZED (BEAKER) (test 1.04 mmol/L 1.12-1.27 L code = 698) PH, BLOOD (BEAKER) (test code = 7.35 1810) PROTHROMBIN [id number] 07:04:00 Test Item Value Reference Range Interpretation [...] 0-0 (BEAKER) (test code = 413) POCT-GLUCOSE [id number] 22:00:00 Test Item Value Reference Range Interpretation Comments POC-GLUCOSE METER 188 mg/dL 70-110 H TESTED AT [facility] [address] (BEAKER) (test code = [place] 1538) [address] TISSUE [id number] 18:15:00Surgical Pathology Report Case: [id number] Authorizing Provider: Nigel Vargas, Collected: 12/17/2018 Hern[place]50 Ordering Location: [facility] Received: 12/17/2018 1129 PERIOPERATIVE SERVICES Pathologist: Kwan Perla MD Specimen: Pleural, Right, RIGHT PLEURAL PEEL PLEURA, RIGHT, DECORTICATION- MILD CHRONIC INFLAMMATION AND GRANULATION TISSUE- ORGANIZING BLOOD CLOTS- NO MALIGNANT CELLS IDENTIFIED Signing Pathologist Direct Phone Line: [phone] signed by Kwan Perla MD on 12/19/2018 at 6:15 PMCorrelation with microbiology cultures is recommended.[id number] effusion and other conditions classified elsewhereRight pleural peelThe specimen is received in a formalin-filled container labeled with the patient's information and labeled "right pleural peel" and consists of multiple fragments of porter-red, dusky, firm tissue measuring 6 x 5 x 0.4 cm in aggregate. Composition Board Press Operator sections are submitted in A1-A3. CG/ew Performed.POCT-GLUCOSE [id number] 17:11:00 Test Item Value Reference Range Interpretation Comments POC-GLUCOSE METER 126 mg/dL 70-110 H TESTED AT [place] [address] ([facility]) (test code = [facility] 1538) [address] POCT-GLUCOSE [id number] 12:57:00 Test Item Value Reference Range Interpretation Comments POC-GLUCOSE METER 143 mg/dL 70-110 H TESTED AT [place] [address] ([facility]) (test code = [facility] 1538) [address] POCT-GLUCOSE [id number] 07:27:00 Test Item Value Reference Range Interpretation Comments POC-GLUCOSE METER 141 mg/dL 70-110 H TESTED AT [place] [address] ([facility]) (test code = [facility] 1538) [address] CALCIUM, [id number] 06:29:00 Test Item Value Reference Range Interpretation Comments CALCIUM IONIZED ([facility]) (test 1.00 mmol/L 1.12-1.27 L code = 698) PH, BLOOD ([facility]) (test code = 7.45 1810) RAD, CHEST, 1 VIEW, NON [id number] 04:54:00Reason for exam:->Post opShould this be performed [...] MDReport Verified Date/Time: 2018 04:54:49 Reading Location: [facility] C013Y CT Body Reading Room BASIC METABOLIC [id number] 04:19:00 Test Item Value Reference Range Interpretation [...] S NOT APPLICABLE FOR DIALYSIS PATIEN TS. [id number] 04:16:00 Test Item Value Reference Range Interpretation Comments PHOSPHORUS (BEAKER) (test code = 3.4 mg/dL 2.3-4.7 604) PROTHROMBIN [id number] 04:06:00 Test Item Value Reference Range Interpretation [...] 0-0 (BEAKER) (test code = 413) POCT-GLUCOSE [id number] 22:11:00 Test Item Value Reference Range Interpretation Comments POC-GLUCOSE METER 149 mg/dL 70-110 H TESTED AT [place] [address] ([facility]) ([facility] 1538) [address] POCT-GLUCOSE [id number] 17:52:00 Test Item Value Reference Range Interpretation Comments POC-GLUCOSE METER 122 mg/dL 70-110 H TESTED AT [place] [address] ([facility]) (test [facility] = [facility] 1538) [address] POCT-GLUCOSE [id number] 14:26:00 Test Item Value Reference Range Interpretation Comments POC-GLUCOSE METER 98 mg/dL 70-110 TESTED AT [place] [address] ([facility]) (test code = [facility] Laura [facility] [address] 1538) HEMOGLOBIN AND [id number] 12:47:00 Test Item Value Reference Range Interpretation Comments HEMOGLOBIN (BEAKER) (test code = 9.2 GM/DL 13.7-17.5 L 410) HEMATOCRIT (BEAKER) (test code = 28.3 % 40.1-51.0 L 411) POCT-GLUCOSE [id number] 09:38:00 Test Item Value Reference Range Interpretation Comments POC-GLUCOSE METER 73 mg/dL 70-110 TESTED AT [facility] [address] (BEAKER) (test code = [place] [address] 1538) PROTEIN ELECTROPHORESIS, [id number] 09:21:00 Test Item Value Reference Range Interpretation [...] of chronic inflammation. No monoclonal bands detected. [id number] Amanda De Jesus MD ([facility]) (test code = (electronic signature) 2616) PROTEIN TOTAL SERUM, 7.5 gm/dL 6.0-8.3 SPEP (BEAKER) (test code = 2660) RAD, CHEST, 1 VIEW, NON [id number] 06:47:00Reason for exam:->Post opShould this be performed [...] MDReport Verified Date/Time: 12/18/2018 06:47:21 Reading Location: [facility] C013Y CT Body Reading Room [id number] 06:20:00 Test Item Value Reference Range Interpretation Comments MAGNESIUM (BEAKER) (test code = 2.2 mg/dL 1.6-2.6 627) CALCIUM, [id number] 06:00:00 Test Item Value Reference Range Interpretation Comments CALCIUM IONIZED (BEAKER) (test 1.09 mmol/L 1.12-1.27 L code = 698) PH, BLOOD (BEAKER) (test code = 7.34 1810) BASIC METABOLIC [id number] 05:07:00 Test Item Value Reference Range Interpretation [...] S NOT APPLICABLE FOR DIALYSIS PATIEN TS. [id number] 04:54:00 Test Item Value Reference Range Interpretation Comments PHOSPHORUS (BEAKER) (test code = 6.3 mg/dL 2.3-4.7 H 604) HEPATIC FUNCTION [id number] 04:54:00 Test Item Value Reference Range Interpretation [...] (test code = 23 U/L 6-55 347) [id number] 04:51:00 Test Item Value Reference Range Interpretation Comments PARTIAL THROMBOPLASTIN TIME 38.6 seconds 22.5-36.0 H (BEAKER) (test code = 760) PROTHROMBIN [id number] 04:50:00 Test Item Value Reference Range Interpretation Comments PROTIME (BEAKER) (test code = 16.0 seconds 11.7-14.7 H 759) INR (BEAKER) (test code = 370) 1.3 <=5.9 RECOMMENDED COUMADIN/WARFARIN INR THERAPY RANGESSTANDARD DOSE: 2.0 - 3.0 Includes: PROPHYLAXIS forvenous thrombosis, systemic embolization; TREATMENT for venous thrombosis and/or pulmonary embolus.HIGH RISK: Target INR is 2.5-3.5 for patients with mechanical heart valves.[id number] 04:50:00 Test Item Value Reference Range Interpretation Comments FIBRINOGEN LEVEL (BEAKER) (test 494 mg/dl 225-434 H code = 658) PLATELET [id number] 04:38:00 Test Item Value Reference Range Interpretation [...] WBC 0-0 (BEAKER) (test code = 413) [id number] 18:48:00 Test Item Value Reference Range Interpretation Comments MAGNESIUM (BEAKER) (test code = 2.4 mg/dL 1.6-2.6 627) POCT-GLUCOSE [id number] 18:42:00 Test Item Value Reference Range Interpretation Comments POC-GLUCOSE METER 121 mg/dL 70-110 H TESTED AT [facility] 67[facility] (BEAKER) (test code = [place] 1538) [address] HEMOGLOBIN AND [id number] 18:37:00 Test Item Value Reference Range Interpretation Comments HEMOGLOBIN (BEAKER) (test code = 10.0 GM/DL 13.7-17.5 L 410) HEMATOCRIT (BEAKER) (test code = 31.3 % 40.1-51.0 L 411) RAD, CHEST, 1 VIEW, NON [id number] 13:28:00Reason for exam:->post opShould this be performed [...] MDReport Verified Date/Time: 12/17/2018 13:28:23 Reading Location: [facility] Reading Room BASI METABOLIC [id number] 13:03:00 Test Item Value Reference Range Interpretation [...] S NOT APPLICABLE FOR DIALYSIS PATIEN TS. [id number] 12:53:00 Test Item Value Reference Range Interpretation Comments PHOSPHORUS (BEAKER) (test code = 4.3 mg/dL 2.3-4.7 604) [id number] 12:53:00 Test Item Value Reference Range Interpretation Comments MAGNESIUM (BEAKER) (test code = 1.5 mg/dL 1.6-2.6 L 627) LACTIC ACID, [id number] 12:50:00 Test Item Value Reference Range Interpretation Comments LACTATE BLOOD ARTERIAL (2) 0.9 mmol/L 0.5-2.2 (BEAKER) (test code = 2874) CBC W/PLT COUNT & AUTO [id number] 12:47:00 Test Item Value Reference Range Interpretation [...] PERCENT (BEAKER) (test code = 2801) CALCIUM, [id number] 12:26:00 Test Item Value Reference Range Interpretation Comments CALCIUM IONIZED (BEAKER) (test 1.07 mmol/L 1.12-1.27 L code = 698) PH, BLOOD (BEAKER) (test code = 7.38 1810) BLOOD GAS, [id number] 12:26:00 Test Item Value Reference Range Interpretation [...] (test code = 1819) 40.0 % CALCIUM, [id number] 10:25:00 Test Item Value Reference Range Interpretation Comments CALCIUM IONIZED (BEAKER) (test 1.09 mmol/L 1.12-1.27 L code = 698) PH, BLOOD (BEAKER) (test code = 7.45 1810) BLOOD GAS, [id number] 10:22:00 Test Item Value Reference Range Interpretation [...] code = 1819) 96.0 % SODIUM NA-STAT [id number] 10:22:00 Test Item Value Reference Range Interpretation Comments SODIUM (BEAKER) (test code = 381) 133 meq/L 135-148 L GLUCOSE-STAT [id number] 10:22:00 Test Item Value Reference Range Interpretation Comments GLUCOSE RANDOM (BEAKER) (test code 116 mg/dL 70-110 H = 652) HGB/HCT (H&H) - STAT [id number] 10:22:00 Test Item Value Reference Range Interpretation Comments HEMOGLOBIN (BEAKER) (test code = 8.9 g/dL 13.0-16.8 L 410) HEMATOCRIT (BEAKER) (test code = 26.0 % 40.0-50.0 L 411) POTASSIUM-STAT [id number] 10:20:00 Test Item Value Reference Range Interpretation Comments POTASSIUM (BEAKER) (test code = 4.0 meq/L 3.6-5.5 379) HEMOGLOBIN [id number] 09:33:00 Test Item Value Reference Range Interpretation Comments HEMOGLOBIN A1C (BEAKER) (test code = 5.9 % 4.3-6.1 368) BLOOD GAS, [id number] 09:27:00 Test Item Value Reference Range Interpretation [...] code = 1819) 100.0 % SODIUM NA-STAT [id number] 09:27:00 Test Item Value Reference Range Interpretation Comments SODIUM (BEAKER) (test code = 381) 133 meq/L 135-148 L HGB/HCT (H&H) - STAT [id number] 09:27:00 Test Item Value Reference Range Interpretation Comments HEMOGLOBIN (BEAKER) (test code = 9.4 g/dL 13.0-16.8 L 410) HEMATOCRIT (BEAKER) (test code = 28.0 % 40.0-50.0 L 411) GLUCOSE-STAT [id number] 09:26:00 Test Item Value Reference Range Interpretation Comments GLUCOSE RANDOM (BEAKER) (test code = 97 mg/dL 70-110 652) POTASSIUM-STAT [id number] 09:26:00 Test Item Value Reference Range Interpretation Comments POTASSIUM (BEAKER) (test code = 3.9 meq/L 3.6-5.5 379) CALCIUM, [id number] 09:26:00 Test Item Value Reference Range Interpretation Comments CALCIUM IONIZED (BEAKER) (test 1.17 mmol/L 1.12-1.27 code = 698) PH, BLOOD (BEAKER) (test code = 7.44 1810) BLOOD GAS, [id number] 08:32:00 Test Item Value Reference Range Interpretation [...] code = 1819) 96.0 % SODIUM NA-STAT [id number] 08:32:00 Test Item Value Reference Range Interpretation Comments SODIUM (BEAKER) (test code = 381) 133 meq/L 135-148 L GLUCOSE-STAT [id number] 08:32:00 Test Item Value Reference Range Interpretation Comments GLUCOSE RANDOM (BEAKER) (test code 113 mg/dL 70-110 H = 652) HGB/HCT (H&H) - STAT [id number] 08:32:00 Test Item Value Reference Range Interpretation Comments HEMOGLOBIN (BEAKER) (test code = 9.9 g/dL 13.0-16.8 L 410) HEMATOCRIT (BEAKER) (test code = 29.0 % 40.0-50.0 L 411) CALCIUM, [id number] 08:31:00 Test Item Value Reference Range Interpretation Comments CALCIUM IONIZED (BEAKER) (test 1.05 mmol/L 1.12-1.27 L code = 698) PH, BLOOD (BEAKER) (test code = 7.49 1810) POTASSIUM-STAT [id number] 08:29:00 Test Item Value Reference Range Interpretation Comments POTASSIUM (BEAKER) (test code = 3.6 meq/L 3.6-5.5 379) POCT-GLUCOSE [id number] 06:20:00 Test Item Value Reference Range Interpretation Comments POC-GLUCOSE METER 99 mg/dL 70-110 TESTED AT [facility] [address] (BEAKER) (test code = [place] [address] 1538) [id number] 05:05:00 Test Item Value Reference Range Interpretation Comments PARTIAL THROMBOPLASTIN TIME 75.6 seconds 22.5-36.0 H (BEAKER) (test code = 760) LIPID [id number] 05:04:00 Test Item Value Reference Range Interpretation [...] Borderline 130-159 High 160-189 Very High >=190PROTHROMBIN [id number] 05:03:00 Test Item Value Reference Range Interpretation Comments PROTIME (BEAKER) (test code = 15.4 seconds 11.7-14.7 H 759) INR (BEAKER) (test code = 370) 1.2 <=5.9 RECOMMENDED COUMADIN/WARFARIN INR THERAPY RANGESSTANDARD DOSE: 2.0 - 3.0 Includes: PROPHYLAXIS forvenous thrombosis, systemic embolization; TREATMENT for venous thrombosis and/or pulmonary embolus.HIGH RISK: Target INR is 2.5-3.5 for patients with mechanical heart valves.POCT-GLUCOSE [id number] 21:17:00 Test Item Value Reference Range Interpretation Comments POC-GLUCOSE METER 223 mg/dL 70-110 H TESTED AT [facility] ([facility]) (test code = [place] 1538) [address] COMPREHENSIVE METABOLIC [id number] 18:57:00 Test Item Value Reference Range Interpretation [...] S NOT APPLICABLE FOR DIALYSIS PATIEN TS. [id number] 18:46:00 Test Item Value Reference Range Interpretation Comments MAGNESIUM (BEAKER) (test code = 1.8 mg/dL 1.6-2.6 627) CBC W/PLT COUNT & AUTO [id number] 18:10:00 Test Item Value Reference Range Interpretation [...] PERCENT (BEAKER) (test code = 2801) POCT-GLUCOSE [id number] 17:34:00 Test Item Value Reference Range Interpretation Comments POC-GLUCOSE METER 169 mg/dL 70-110 H TESTED AT [place] [address] ([facility]) (test code = [place] Paul [facility] 1538) [address] HEPARIN [id number] 13:40:00 Test Item Value Reference Range Interpretation Comments HEPARIN ANTIBODY ([facility]) (test code Negative Negative = 646) HEPARIN ANTIBODY OD ([facility]) (test 0.105 <0.400 code = 2659) 4T TOTAL SCORE ([facility]) (test code = 4 8557) Probability of HIT based on scoring system: 6-8 = High probability; 4-5 = intermediate probability;0-3 = low probabilityPOCT-GLUCOSE [id number] 12:51:00 Test Item Value Reference Range Interpretation Comments POC-GLUCOSE METER 66 mg/dL 70-110 L Notified R Jun PÉREZ/TESTED AT ([facility]) (test code = [place] [address] [place] 1538) [facility] 7703 0 POCT-GLUCOSE [id number] 07:54:00 Test Item Value Reference Range Interpretation Comments POC-GLUCOSE METER 75 mg/dL 70-110 TESTED AT [place] [address] ([facility]) (test code = [place]ER Paul [facility] [address] 1538) [id number] 04:21:00 Test Item Value Reference Range Interpretation Comments PROTIME ([facility]) (test code = 15.4 seconds 11.7-14.7 H 759) INR ([facility]) (test code = 370) 1.2 <=5.9 PARTIAL THROMBOPLASTIN TIME 74.0 seconds 22.5-36.0 H ([facility]) (test code = 760) RECOMMENDED COUMADIN/WARFARIN INR THERAPY RANGESSTANDARD DOSE: 2.0 - 3.0 Includes: PROPHYLAXIS forvenous thrombosis, systemic embolization; TREATMENT for venous thrombosis and/or pulmonary embolus.HIGH RISK: Target INR is 2.5-3.5 for patients with mechanical heart valves.[id number] 04:20:00 Test Item Value Reference Range Interpretation Comments FIBRINOGEN LEVEL ([facility]) (test 525 mg/dl 225-434 H code = 658) POCT-GLUCOSE [id number] 21:25:00 Test Item Value Reference Range Interpretation Comments POC-GLUCOSE METER 129 mg/dL 70-110 H TESTED AT [place] [address] ([facility]) (test code = [place] 1538) [address] [id number] 18:23:00 Test Item Value Reference Range Interpretation Comments PARTIAL THROMBOPLASTIN TIME 72.0 seconds 22.5-36.0 H ([facility]) (test code = 760) POCT-GLUCOSE [id number] 16:20:00 Test Item Value Reference Range Interpretation Comments POC-GLUCOSE METER 142 mg/dL 70-110 H TESTED AT [place] [address] ([facility]) (test code = [place] 1538) [address] POCT-GLUCOSE [id number] 13:05:00 Test Item Value Reference Range Interpretation Comments POC-GLUCOSE METER 86 mg/dL 70-110 TESTED AT [place] [address] ([facility]) (test code = [place] [address] 1538) [id number] 11:19:00 Test Item Value Reference Range Interpretation Comments PARTIAL THROMBOPLASTIN TIME 72.3 seconds 22.5-36.0 H ([facility]) (test code = 760) POCT-GLUCOSE [id number] 07:56:00 Test Item Value Reference Range Interpretation Comments POC-GLUCOSE METER 87 mg/dL 70-110 TESTED AT [place] [address] (BEAKER) (test code = [place] [address] 1538) [id number] 03:13:00 Test Item Value Reference Range Interpretation Comments PARTIAL THROMBOPLASTIN TIME 97.1 seconds 22.5-36.0 H (BEAKER) (test code = 760) PROTHROMBIN [id number] 03:11:00 Test Item Value Reference Range Interpretation [...] WBC 0-0 (test code = 413) POCT-GLUCOSE [id number] 21:26:00 Test Item Value Reference Range Interpretation Comments POC-GLUCOSE METER 121 mg/dL 70-110 H TESTED AT [place] [address] ([facility]) (test code = [place] 1538) [address] [id number] 19:05:00 Test Item Value Reference Range Interpretation Comments PARTIAL THROMBOPLASTIN TIME 64.0 seconds 22.5-36.0 H ([facility]) (test code = 760) POCT-GLUCOSE [id number] 17:24:00 Test Item Value Reference Range Interpretation Comments POC-GLUCOSE METER 131 mg/dL 70-110 H TESTED AT [place] [address] ([facility]) (test code = MARIA GTAMMI Paul [place] 1538) [address] [id number] 13:32:00 Test Item Value Reference Range Interpretation Comments PARTIAL THROMBOPLASTIN TIME 81.4 seconds 22.5-36.0 H ([facility]) (test code = 760) POCT-GLUCOSE [id number] 12:32:00 Test Item Value Reference Range Interpretation Comments POC-GLUCOSE METER 102 mg/dL 70-110 TESTED AT [place] [address] ([facility]) (test code = MARIA GTAMMI [place] 1538) [address] POCT-GLUCOSE [id number] 07:07:00 Test Item Value Reference Range Interpretation Comments POC-GLUCOSE METER 113 mg/dL 70-110 H TESTED AT [place] [address] ([facility]) (test code = [place] GTAMMI [place] 1538) [address] [id number] 05:47:00 Test Item Value Reference Range Interpretation Comments PARTIAL THROMBOPLASTIN TIME 91.8 seconds 22.5-36.0 H ([facility]) (test code = 760) POCT-GLUCOSE [id number] 21:27:00 Test Item Value Reference Range Interpretation Comments POC-GLUCOSE METER 90 mg/dL 70-110 TESTED AT [place] [address] ([facility]) (test code = [place] [address] 1538) POCT-GLUCOSE [id number] 17:46:00 Test Item Value Reference Range Interpretation Comments POC-GLUCOSE METER 175 mg/dL 70-110 H TESTED AT [place] [address] ([facility]) ([facility] = [facility] [place] 1538) [address] POCT-GLUCOSE [id number] 17:30:00 Test Item Value Reference Range Interpretation Comments POC-GLUCOSE METER 84 mg/dL 70-110 TESTED AT [place] [address] (BEAKER) (test code = FOSTER Paul [facility] [address] 1538) [id number] 13:20:00 Test Item Value Reference Range Interpretation Comments PARTIAL THROMBOPLASTIN TIME 68.4 seconds 22.5-36.0 H (BEAKER) (test code = 760) BASIC METABOLIC [id number] 10:36:00 Test Item Value Reference Range Interpretation [...] NOT APPLICABLE FOR DIALYSIS PATIEN TS. POCT-GLUCOSE [id number] 07:43:00 Test Item Value Reference Range Interpretation Comments POC-GLUCOSE METER 84 mg/dL 70-110 TESTED AT [place] [id number] (BEAKER) (test code = FOSTER Paul [facility] [address] 1538) [id number] 06:52:00 Test Item Value Reference Range Interpretation Comments PARTIAL THROMBOPLASTIN TIME 76.5 seconds 22.5-36.0 H (BEAKER) (test code = 760) PROTHROMBIN [id number] 06:51:00 Test Item Value Reference Range Interpretation [...] 417) IMMATURE GRANULOCYTES-RELATIVE 1 % 0-1 PERCENT ([facility]) (test code = 2801) [id number] 00:11:00 Test Item Value Reference Range Interpretation Comments PARTIAL THROMBOPLASTIN TIME 59.7 seconds 22.5-36.0 H ([facility]) (test code = 760) POCT-GLUCOSE [id number] 21:33:00 Test Item Value Reference Range Interpretation Comments POC-GLUCOSE METER 113 mg/dL 70-110 H TESTED AT [place] [address] ([facility]) (test code = [place] 1538) [address] POCT-GLUCOSE [id number] 18:08:00 Test Item Value Reference Range Interpretation Comments POC-GLUCOSE METER 128 mg/dL 70-110 H TESTED AT [place] [address] ([facility]) (test code = [place] 1538) [address] [id number] 16:51:00 Test Item Value Reference Range Interpretation Comments PARTIAL THROMBOPLASTIN TIME 71.6 seconds 22.5-36.0 H ([facility]) (test code = 760) POCT-GLUCOSE [id number] 12:39:00 Test Item Value Reference Range Interpretation Comments POC-GLUCOSE METER 124 mg/dL 70-110 H TESTED AT [place] [address] ([facility]) (test code = [place] 1538) [address] [id number] 09:07:00 Test Item Value Reference Range Interpretation Comments PARTIAL THROMBOPLASTIN TIME 96.6 seconds 22.5-36.0 H ([facility]) (test code = 760) POCT-GLUCOSE [id number] 07:48:00 Test Item Value Reference Range Interpretation Comments POC-GLUCOSE METER 105 mg/dL 70-110 TESTED AT [place] [address] ([facility]) (test code = [place] 1538) [address] BASIC METABOLIC [id number] 01:54:00 Test Item Value Reference Range Interpretation [...] I S NOT APPLICABLE FOR DIALYSIS PATIRUBÉN TS. [id number] 01:37:00 Test Item Value Reference Range Interpretation Comments PARTIAL THROMBOPLASTIN TIME 53.4 seconds 22.5-36.0 H (BEAKER) (test code = 760) PROTHROMBIN [id number] 01:36:00 Test Item Value Reference Range Interpretation [...] PERCENT (BEAKER) (test code = 2801) POCT-GLUCOSE [id number] 21:57:00 Test Item Value Reference Range Interpretation Comments POC-GLUCOSE METER 165 mg/dL 70-110 H TESTED AT [place] [address] ([facility]) (test code = [place]OST[place] Paul [place] 1538) [address] [id number] 18:46:00 Test Item Value Reference Range Interpretation Comments PARTIAL THROMBOPLASTIN TIME 39.0 seconds 22.5-36.0 H ([facility]) (test code = 760) POCT-GLUCOSE [id number] 17:51:00 Test Item Value Reference Range Interpretation Comments POC-GLUCOSE METER 157 mg/dL 70-110 H TESTED AT [place] [address] ([facility]) (test code = [place] 1538) [address] POCT-GLUCOSE [id number] 17:09:00 Test Item Value Reference Range Interpretation Comments POC-GLUCOSE METER 162 mg/dL 70-110 H TESTED AT [place] [address] ([facility]) (test code = [place] 1538) [address] [id number] 16:07:00 Test Item Value Reference Range Interpretation Comments PARTIAL THROMBOPLASTIN TIME 117.0 seconds 22.5-36.0 H ([facility]) (test code = 760) POCT-GLUCOSE [id number] 13:28:00 Test Item Value Reference Range Interpretation Comments POC-GLUCOSE METER 88 mg/dL 70-110 TESTED AT [place] [address] ([facility]) (test code = FOSTER Paul [facility] [address] 1538) [id number] 09:17:00 Test Item Value Reference Range Interpretation Comments PARTIAL THROMBOPLASTIN TIME 71.7 seconds 22.5-36.0 H ([facility]) (test code = 760) POCT-GLUCOSE [id number] 08:07:00 Test Item Value Reference Range Interpretation Comments POC-GLUCOSE METER 137 mg/dL 70-110 H TESTED AT [place] [address] ([facility]) (test code = [facility] Laura [place] 1538) [address] [id number] 02:27:00 Test Item Value Reference Range Interpretation Comments PARTIAL THROMBOPLASTIN TIME 62.4 seconds 22.5-36.0 H ([facility]) (test code = 760) PROTHROMBIN [id number] 02:26:00 Test Item Value Reference Range Interpretation Comments PROTIME ([facility]) (test code = 20.0 seconds 11.7-14.7 H 759) INR (BEAKER) (test code = 370) 1.7 <=5.9 RECOMMENDED COUMADIN/WARFARIN INR THERAPY RANGESSTANDARD DOSE: 2.0 - 3.0 Includes: PROPHYLAXIS forvenous thrombosis, systemic embolization; TREATMENT for venous thrombosis and/or pulmonary embolus.HIGH RISK: Target INR is 2.5-3.5 for patients with mechanical heart valves.BASIC METABOLIC [id number] 02:02:00 Test Item Value Reference Range Interpretation [...] PATIEN TS. CBC W/PLT COUNT & AUTO [id number] 01:42:00 Test Item Value Reference Range Interpretation [...] PERCENT (BEAKER) (test code = 2801) POCT-GLUCOSE [id number] 21:12:00 Test Item Value Reference Range Interpretation Comments POC-GLUCOSE METER 199 mg/dL 70-110 H TESTED AT [facility] 67[address] (BEAKER) (test code = [place] 1538) [address] POCT-GLUCOSE [id number] 17:39:00 Test Item Value Reference Range Interpretation Comments POC-GLUCOSE METER 145 mg/dL 70-110 H TESTED AT [facility] 67[address] (BEAKER) (test code = [place] 1538) [address] [id number] 17:33:00 Test Item Value Reference Range Interpretation Comments PARTIAL THROMBOPLASTIN TIME 47.3 seconds 22.5-36.0 H (BEAKER) (test code = 760) POCT-GLUCOSE [id number] 12:53:00 Test Item Value Reference Range Interpretation Comments POC-GLUCOSE METER 203 mg/dL 70-110 H TESTED AT [facility] [address] (BEAKER) (test code = FOSTER Paul [facility] 1538) [address] POCT-GLUCOSE [id number] 08:28:00 Test Item Value Reference Range Interpretation Comments POC-GLUCOSE METER 98 mg/dL 70-110 TESTED AT [facility] 67[address] (BEAKER) (test code = [facility] Laura [facility] [address] 1538) BASIC METABOLIC [id number] 05:52:00 Test Item Value Reference Range Interpretation [...] NOT APPLICABLE FOR DIALYSIS PATIEN TS. PROTHROMBIN [id number] 05:51:00 Test Item Value Reference Range Interpretation [...] 417) IMMATURE GRANULOCYTES-RELATIVE 1 % 0-1 PERCENT ([facility]) (test code = 2801) POCT-GLUCOSE [id number] 20:54:00 Test Item Value Reference Range Interpretation Comments POC-GLUCOSE METER 126 mg/dL 70-110 H TESTED AT [place] [address] ([facility]) (test code = [facility] 1538) [address] POCT-GLUCOSE [id number] 18:47:00 Test Item Value Reference Range Interpretation Comments POC-GLUCOSE METER 70 mg/dL 70-110 TESTED AT [place] [address] ([facility]) (test code = [facility] [address]38) POCT-GLUCOSE [id number] 13:25:00 Test Item Value Reference Range Interpretation Comments POC-GLUCOSE METER 120 mg/dL 70-110 H TESTED AT [place] [address] ([facility]) (test code = [facility] 1538) [address] POCT-GLUCOSE [id number] 09:32:00 Test Item Value Reference Range Interpretation Comments POC-GLUCOSE METER 104 mg/dL 70-110 TESTED AT [place] [address] ([facility]) (test code = [facility] 1538) [address] BASIC METABOLIC [id number] 05:59:00 Test Item Value Reference Range Interpretation [...] 358) GLUCOSE RANDOM 112 mg/dL 70-105 H ([facility]) (test code = 652) CALCIUM (BEAKER) 8.9 mg/dL 8.4-10.2 (test code = 697) EGFR (BEAKER) (test 9 mL/min/1.73 ESTIMAT ED GFR IS code = 1092) sq m NOT ACCURATE CREATININE CLEARANCE IN PREDICTING GLOMERULAR FILTRATION RATE . ESTIMATED GFR I S NOT APPLICABLE FOR DIALYSIS PATIEN TS. PROTHROMBIN [id number] 05:20:00 Test Item Value Reference Range Interpretation [...] PERCENT (BEAKER) (test code = 2801) POCT-GLUCOSE [id number] 21:14:00 Test Item Value Reference Range Interpretation Comments POC-GLUCOSE METER 200 mg/dL 70-110 H TESTED AT [facility] [address] (BEAKER) (test code = FOSTER Paul [place] 1538) [address] POCT-GLUCOSE [id number] 17:34:00 Test Item Value Reference Range Interpretation Comments POC-GLUCOSE METER 143 mg/dL 70-110 H TESTED AT [facility] 67[address] (BEAKER) (test code = FOSTER Paul [place] 1538) [address] POCT-GLUCOSE [id number] 12:04:00 Test Item Value Reference Range Interpretation Comments POC-GLUCOSE METER 160 mg/dL 70-110 H TESTED AT [facility] 67[address] (BEAKER) (test code = FOSTER Paul [place] 1538) [address] POCT-GLUCOSE [id number] 08:08:00 Test Item Value Reference Range Interpretation Comments POC-GLUCOSE METER 154 mg/dL 70-110 H TESTED AT [facility] 67[facility] (BEAKER) (test code = FOSTER Paul [place] 1538) [address] BASIC METABOLIC [id number] 06:33:00 Test Item Value Reference Range Interpretation [...] I S NOT APPLICABLE FOR DIALYSIS PATIRUBÉN ULLOA [id number] 06:01:00 Test Item Value Reference Range Interpretation Comments PARTIAL THROMBOPLASTIN TIME 117.2 seconds 22.5-36.0 H (BEAKER) (test code = 760) PROTHROMBIN [id number] 05:56:00 Test Item Value Reference Range Interpretation [...] PERCENT (BEAKER) (test code = 2801) POCT-GLUCOSE [id number] 21:37:00 Test Item Value Reference Range Interpretation Comments POC-GLUCOSE METER 121 mg/dL 70-110 H TESTED AT [facility] 67[facility] (BEAKER) (test code = [place]ER [place] 1538) [address] POCT-GLUCOSE [id number] 19:01:00 Test Item Value Reference Range Interpretation Comments POC-GLUCOSE METER 191 mg/dL 70-110 H TESTED AT [facility] 67[facility] (BEAKER) (test code = [place] 1538) [address] [id number] 18:31:00 Test Item Value Reference Range Interpretation Comments PARTIAL THROMBOPLASTIN TIME 86.2 seconds 22.5-36.0 H (BEAKER) (test code = 760) POCT-GLUCOSE [id number] 13:05:00 Test Item Value Reference Range Interpretation Comments POC-GLUCOSE METER 130 mg/dL 70-110 H TESTED AT [facility] 67[address] (BEAKER) (test code = [place] 1538) [address] RAD, CHEST, 1 VIEW, NON [id number] 12:22:00Reason for exam:->pleural effusionsShould this be performed [...] MDReport Verified Date/Time: 12/07/2018 12:22:50 Reading Location: [address] Neuro Reading Room [id number] 11:39:00 Test Item Value Reference Range Interpretation Comments PARTIAL THROMBOPLASTIN TIME 100.1 seconds 22.5-36.0 H (BEAKER) (test code = 760) BODY FLUID CULTURE + GRAM [id number] 10:13:00 Test Item Value Reference Range Interpretation Comments CULTURE (BEAKER) (test No growth code = 1095) GRAM STAIN RESULT <1+ White blood cells (BEAKER) (test code = seen 1123) GRAM STAIN RESULT No organisms seen (BEAKER) (test code = 63178) POCT-GLUCOSE [id number] 08:51:00 Test Item Value Reference Range Interpretation Comments POC-GLUCOSE METER 90 mg/dL 70-110 TESTED AT [facility] [address] (BEAKER) (test code = [place] [address] 1538) BASIC METABOLIC [id number] 07:31:00 Test Item Value Reference Range Interpretation [...] S NOT APPLICABLE FOR DIALYSIS PATIEN TS. [id number] 05:21:00 Test Item Value Reference Range Interpretation Comments PARTIAL THROMBOPLASTIN TIME 104.0 seconds 22.5-36.0 H (BEAKER) (test code = 760) PROTHROMBIN TIME/[id number] 04:50:00 Test Item Value Reference Range Interpretation [...] 0-1 PERCENT (BEAKER) (test code = 2801) [id number] 20:33:00 Test Item Value Reference Range Interpretation Comments PARTIAL THROMBOPLASTIN TIME 87.6 seconds 22.5-36.0 H (BEAKER) (test code = 760) POCT-GLUCOSE [id number] 19:30:00 Test Item Value Reference Range Interpretation Comments POC-GLUCOSE METER 112 mg/dL 70-110 H TESTED AT [facility] [address] (BEAKER) (test code = FOSTER Paul [place] 1538) [address] [id number] 13:55:00 Test Item Value Reference Range Interpretation Comments PARTIAL THROMBOPLASTIN TIME 85.9 seconds 22.5-36.0 H (BEAKER) (test code = 760) POCT-GLUCOSE [id number] 09:12:00 Test Item Value Reference Range Interpretation Comments POC-GLUCOSE METER 112 mg/dL 70-110 H TESTED AT [facility] 67 ([facility]) (test code = [facility] 1538) [address] BASIC METABOLIC [id number] 08:53:00 Test Item Value Reference Range Interpretation [...] S NOT APPLICABLE FOR DIALYSIS PATIEN TS. [id number] 06:04:00 Test Item Value Reference Range Interpretation Comments PARTIAL THROMBOPLASTIN TIME 105.5 seconds 22.5-36.0 H (BEAKER) (test code = 760) PROTHROMBIN [id number] 05:44:00 Test Item Value Reference Range Interpretation [...] (test code = 2801) CT, CHEST, WITHOUT [id number] 03:17:00FINAL REPORT EXAM: CT of the chest, [...] left pleural effusion with associated compressive atelectasis. Biokj-jo-gtbelkie loculated right pleural effusion with pleural thickening [...] MDReport Verified Date/Time: 12/06/2018 03:17:03 Reading Location: [facility] C013Y CT Body Reading Room POCT-GLUCOSE [id number] 21:22:00 Test Item Value Reference Range Interpretation Comments POC-GLUCOSE METER 171 mg/dL 70-110 H TESTED AT [place] [address] ([facility]) (test code = [place] Paul [facility] 1538) [address] POCT-GLUCOSE [id number] 17:58:00 Test Item Value Reference Range Interpretation Comments POC-GLUCOSE METER 128 mg/dL 70-110 H TESTED AT [place] [address] ([facility]) (test code = [facility] 1538) [address] POCT-GLUCOSE [id number] 13:24:00 Test Item Value Reference Range Interpretation Comments POC-GLUCOSE METER 129 mg/dL 70-110 H TESTED AT [place] [address] ([facility]) (test code = [facility] Laura [facility] 1538) [id number] LACTATE DEHYDROGENASE (LDH)2018-12-05 13:14:00 Test Item Value Reference Range Interpretation Comments LACTATE DEHYDROGENASE ([facility]) (test 291 U/L 125-220 H code = 635) [id number] 13:10:00 Test Item Value Reference Range Interpretation Comments PARTIAL THROMBOPLASTIN TIME 91.7 seconds 22.5-36.0 H ([facility]) (test code = 760) POCT-GLUCOSE [id number] 08:19:00 Test Item Value Reference Range Interpretation Comments POC-GLUCOSE METER 106 mg/dL 70-110 TESTED AT [place] [address] ([facility]) (test code = [facility] 1538) [id number] BASIC METABOLIC [id number] 07:05:00 Test Item Value Reference Range Interpretation Comments SODIUM (BEAKER) 137 meq/L 136-145 (test code = 381) POTASSIUM ([facility]) 3.7 meq/L 3.5-5.1 (test code = 379) [...] S NOT APPLICABLE FOR DIALYSIS PATIEN TS. [id number] 06:32:00 Test Item Value Reference Range Interpretation [...] 2.5-3.5 for patients with mechanical heart valves.PROTHROMBIN TIME/[id number] 06:30:00 Test Item Value Reference Range Interpretation [...] 0-1 PERCENT (BEAKER) (test code = 2801) [id number] 00:40:00 Test Item Value Reference Range Interpretation Comments PARTIAL THROMBOPLASTIN TIME 63.1 seconds 22.5-36.0 H (BEAKER) (test code = 760) POCT-GLUCOSE [id number] 00:12:00 Test Item Value Reference Range Interpretation Comments POC-GLUCOSE METER 124 mg/dL 70-110 H TESTED AT [facility] 6720 (BEAKER) (test code = [place] 1538) [address] HEPATITIS B SURFACE [id number] 22:54:00 Test Item Value Reference Range Interpretation Comments HEPATITIS B SURFACE ANTIGEN (2) Nonreactive Nonreactive (BEAKER) (test code = 2585) For chronic HD patients, draw HBsAg with each admission then every 30 days.BODY FLUID CELL COUNT WITH [id number] 20:34:00 Test Item Value Reference Range Interpretation Comments APPEARANCE FLUID (BEAKER) (test Cloudy Clear A code = 510) COLOR FLUID (BEAKER) (test code Brown Colorless, Straw A = 511) RBC FLUID (BEAKER) (test code = 50111 /cu mm <=1 H 513) ADJUSTED WBC [...] code = 2873) LACTATE DEHYDROGENASE (LDH), BODY [id number] 19:43:00 Test Item Value Reference Range Interpretation [...] local 1% lidocaine anesthesia was administered.A 4 Indonesian catheter was advanced into the largest pocket of the septated pleural effusion and 300 ccof bloody fluid was removed. The catheter was removed without immediate complication. Samples were sent for analysis. IMPRESSION:Uncomplicated ultrasound-guided right thoracentesis with 300 cc fluid removed. Signed: Raimundo Kim Verified Date/Time: 12/04/2018 18:00:50 Reading Location: [address] Ultrasound Reading Room RAD, CHEST, 1 VIEW, NON [id number] 17:23:00Reason for exam:->s/p right thoracentesisShould this be performed at the bedside?->YesFINAL REPORT EXAM: Frontal chest radiograph HISTORY PROVIDED: Status post right thoracentesis COMPARISON: 12/03/2018 IMPRESSION:There is residual small right pleural effusion with adjacent consolidation or atelectasis. Interstitial edema is similar. No discernible pneumothorax. The cardiac silhouette remains enlarged. Median sternotomy wires are again noted. No acute osseous abnormality. Signed: Kay Walter Verified Date/Time: 12/04/2018 17:23:06 Reading Location: [facility] Mammo Reading Room C. DIFFICILE GDH [id number] 10:01:00 Test Item Value Reference Range Interpretation Comments CDT TOXIN (test code Negative Negative = [id number]) CDT GDH ANTIGEN Positive Negative A C. difficile present but (test code = toxin not detec jayla. [id number]) Indicates colon ization with non-toxige ron strain [...] of kit performance was done by the [facility] prior to clinical use.[id number] 09:39:00 Test Item Value Reference Range Interpretation Comments PARTIAL THROMBOPLASTIN TIME 79.4 seconds 22.5-36.0 H (BEAKER) (test code = 760) OCCULT BLOOD, [id number] 05:59:00 Test Item Value Reference Range Interpretation Comments FECAL OCCULT BLOOD (BEAKER) (test Negative Negative code = 618) BASIC METABOLIC [id number] 02:50:00 Test Item Value Reference Range Interpretation [...] S NOT APPLICABLE FOR DIALYSIS PATIEN TS. [id number] 02:50:00 Test Item Value Reference Range Interpretation Comments PARTIAL THROMBOPLASTIN TIME 35.3 seconds 22.5-36.0 (BEAKER) (test code = 760) Prior to initiating heparinPROTHROMBIN TIME/[id number] 02:49:00 Test Item Value Reference Range Interpretation [...] acute neurological disease, and persistent tachyarrhythmia.HEPATIC FUNCTION [id number] 02:43:00 Test Item Value Reference Range Interpretation [...] 6-55 347) CBC W/PLT COUNT & AUTO [id number] 02:21:00 Test Item Value Reference Range Interpretation [...] 0-1 H PERCENT (BEAKER) (test code = 280) POCT-GLUCOSE [id number] 21:22:00 Test Item Value Reference Range Interpretation Comments POC-GLUCOSE METER 192 mg/dL 70-110 H TESTED AT [facility] 6720 (JARROD) (test code = [place] 1531) [address] TROPONIN [id number] 17:09:00 Test Item Value Reference Range Interpretation [...] and persistent tachyarrhythmia.RAD, CHEST, 1 VIEW, NON [id number] 15:36:00Reason for exam:->SHORTNESS OF BREATHShould this be performed at the bedside?->YesFINAL REPORT AP chest HISTORY: Shortness of breath. COMPARISON: 11/03/2017. IMPRESSION: Cardiomegaly. Mild interstitial edema. Right effusion and adjacent atelectasis. No pneumothorax. Signed: Mandy Chairez MDRepcox north Verified Date/Time: 12/03/2018 15:36:19 Reading Location: [address] Radiology Reading Room TROPONIN [id number] 14:48:00 Test Item Value Reference Range Interpretation [...] (BEAKER) (test code = 700) BASIC METABOLIC [id number] 14:40:00 Test Item Value Reference Range Interpretation [...] S NOT APPLICABLE FOR DIALYSIS PATIEN TS. [id number] 14:34:00 Test Item Value Reference Range Interpretation [...] (test code = 2801) RAD, CHEST, 2 [id number] 15:24:00Reason for Exam:->chronic Diastolic heart FailureFINAL REPORT [...] MDReport Verified Date/Time: 11/03/2018 15:24:42 Reading Location: [address] Radiology Reading Room MISCELLANEOUS LAB [id number] 08:22:00 Test Item Value Reference Range Interpretation Comments SCAN RESULT (test code = 6647497) PROTHROMBIN [id number] 08:37:00 Test Item Value Reference Range Interpretation Comments PROTIME (BEAKER) (test code = 24.8 seconds 11.7-14.7 H 759) INR (BEAKER) (test code = 370) 2.2 <=5.9 RECOMMENDED COUMADIN/WARFARIN INR THERAPY RANGESSTANDARD DOSE: 2.0 - 3.0 Includes: PROPHYLAXIS forvenous thrombosis, systemic embolization; TREATMENT for venous thrombosis and/or pulmonary embolus.HIGH RISK: Target INR is 2.5-3.5 for patients with mechanical heart valves.POCT-GLUCOSE [id number] 08:10:00 Test Item Value Reference Range Interpretation Comments POC-GLUCOSE METER 89 mg/dL 70-110 TESTED AT [facility] 67[address] ([facility]) (test code = [place] [address] 1538) BASIC METABOLIC [id number] 06:29:00 Test Item Value Reference Range Interpretation [...] S NOT APPLICABLE FOR DIALYSIS PATIEN TS. [id number] 06:28:00 Test Item Value Reference Range Interpretation Comments MAGNESIUM (BEAKER) (test code = 1.8 mg/dL 1.6-2.6 627) [id number] 06:14:00 Test Item Value Reference Range Interpretation Comments PARTIAL THROMBOPLASTIN TIME 64.7 seconds 22.5-36.0 H (BEAKER) (test code = 760) CBC W/PLT COUNT & AUTO [id number] 05:58:00 Test Item Value Reference Range Interpretation [...] PERCENT (BEAKER) (test code = 2801) POCT-GLUCOSE [id number] 21:14:00 Test Item Value Reference Range Interpretation Comments POC-GLUCOSE METER 135 mg/dL 70-110 H TESTED AT [place] [address] ([facility]) (test code = [place] 1538) [address] [id number] 19:36:00 Test Item Value Reference Range Interpretation Comments PARTIAL THROMBOPLASTIN TIME 88.6 seconds 22.5-36.0 H ([facility]) (test code = 760) POCT-GLUCOSE [id number] 18:27:00 Test Item Value Reference Range Interpretation Comments POC-GLUCOSE METER 88 mg/dL 70-110 TESTED AT [facility] 67[address] ([facility]) (test code = [place] Paul [facility] [address] 1538) POCT-GLUCOSE [id number] 12:05:00 Test Item Value Reference Range Interpretation Comments POC-GLUCOSE METER 92 mg/dL 70-110 TESTED AT [facility] 67 ([facility]) (test code = [place] [facility] [address] 1538) [id number] 11:46:00 Test Item Value Reference Range Interpretation Comments PARTIAL THROMBOPLASTIN TIME 74.3 seconds 22.5-36.0 H (AKER) (test code = 760) POCT-GLUCOSE [id number] 10:36:00 Test Item Value Reference Range Interpretation Comments POC-GLUCOSE METER 101 mg/dL 70-110 TESTED AT [place] [address] ([facility]) (test code = [place] Paul [facility] 1538) [address] POCT-GLUCOSE [id number] 07:10:00 Test Item Value Reference Range Interpretation Comments POC-GLUCOSE METER 92 mg/dL 70-110 TESTED AT [place] [address] ([facility]) (test code = [place] Paul [facility] [address] 1538) PROTHROMBIN [id number] 01:41:00 Test Item Value Reference Range Interpretation Comments PROTIME ([facility]) (test code = 22.8 seconds 11.7-14.7 H 759) INR ([facility]) (test code = 370) 2.0 <=5.9 RECOMMENDED COUMADIN/WARFARIN INR THERAPY RANGESSTANDARD DOSE: 2.0 - 3.0 Includes: PROPHYLAXIS forvenous thrombosis, systemic embolization; TREATMENT for venous thrombosis and/or pulmonary embolus.HIGH RISK: Target INR is 2.5-3.5 for patients with mechanical heart valves.While on warfarin.[id number] 01:41:00 Test Item Value Reference Range Interpretation Comments PARTIAL THROMBOPLASTIN TIME 52.3 seconds 22.5-36.0 H (BEAKER) (test code = 760) While on warfarin.BASIC METABOLIC [id number] 01:37:00 Test Item Value Reference Range Interpretation [...] S NOT APPLICABLE FOR DIALYSIS PATIEN TS. [id number] 01:32:00 Test Item Value Reference Range Interpretation Comments MAGNESIUM (BEAKER) (test code = 1.8 mg/dL 1.6-2.6 627) CBC W/PLT COUNT & AUTO [id number] 01:18:00 Test Item Value Reference Range Interpretation [...] 0-1 PERCENT (BEAKER) (test code = 2801) [id number] 23:23:00 Test Item Value Reference Range Interpretation Comments PARTIAL THROMBOPLASTIN TIME 125.2 seconds 22.5-36.0 H ([facility]) (test code = 760) POCT-GLUCOSE [id number] 21:19:00 Test Item Value Reference Range Interpretation Comments POC-GLUCOSE METER 165 mg/dL 70-110 H TESTED AT [place] [address] ([facility]) (test code = [facility] 1538) [address] POCT-GLUCOSE [id number] 18:34:00 Test Item Value Reference Range Interpretation Comments POC-GLUCOSE METER 92 mg/dL 70-110 TESTED AT [place] [address] ([facility]) (test code = [facility] [address] 1538) [id number] 17:17:00 Test Item Value Reference Range Interpretation Comments PARTIAL THROMBOPLASTIN TIME 75.2 seconds 22.5-36.0 H ([facility]) (test code = 760) POCT-GLUCOSE [id number] 12:48:00 Test Item Value Reference Range Interpretation Comments POC-GLUCOSE METER 105 mg/dL 70-110 TESTED AT [place] [address] ([facility]) (test code = [facility] 1538) [address] RAD, CHEST, 1 VIEW, NON [id number] 11:00:00Reason for exam:->eval right effusionShould this be performed at the bedside?->YesFINAL REPORT Comparison: 08/15/2018 TECHNIQUE: Single view of the chest FINDINGS: Small to moderate right pleural effusion is stable. Small left pleural effusion may be slightly increased. Vascular congestion seen. No other significant change. Signed: Kyle Rome MDReport Verified Date/Time: 08/18/2018 11:00:36 Reading Location: [facility] Radiology Reading Room Electronicallysigned by: KYLE ROME M.D. on 08/18/2018 11:00 [id number] 09:48:00 Test Item Value Reference Range Interpretation Comments PARTIAL THROMBOPLASTIN TIME 48.8 seconds 22.5-36.0 H (BEAKER) (test code = 760) POCT-GLUCOSE [id number] 07:37:00 Test Item Value Reference Range Interpretation Comments POC-GLUCOSE METER 96 mg/dL 70-110 TESTED AT [facility] 67 (BEAKER) (test code = [facility] [address] 1538) BASIC METABOLIC [id number] 02:24:00 Test Item Value Reference Range Interpretation [...] S NOT APPLICABLE FOR DIALYSIS PATIEN TS. [id number] 02:22:00 Test Item Value Reference Range Interpretation Comments MAGNESIUM (BEAKER) (test code = 1.7 mg/dL 1.6-2.6 627) [id number] 02:15:00 Test Item Value Reference Range Interpretation Comments PARTIAL THROMBOPLASTIN TIME 98.9 seconds 22.5-36.0 H (BEAKER) (test code = 760) PROTHROMBIN [id number] 02:13:00 Test Item Value Reference Range Interpretation [...] PERCENT (BEAKER) (test code = 2801) POCT-GLUCOSE [id number] 21:51:00 Test Item Value Reference Range Interpretation Comments POC-GLUCOSE METER 98 mg/dL 70-110 TESTED AT [place] [address] ([facility]) (test code = [facility] [address] 1538) [id number] 18:51:00 Test Item Value Reference Range Interpretation Comments PARTIAL THROMBOPLASTIN TIME 56.1 seconds 22.5-36.0 H (BEAKER) (test code = 760) [id number] 17:06:00 Test Item Value Reference Range Interpretation Comments PARTIAL THROMBOPLASTIN TIME 121.9 seconds 22.5-36.0 H (BEAKER) (test code = 760) POCT-GLUCOSE [id number] 16:46:00 Test Item Value Reference Range Interpretation Comments POC-GLUCOSE METER 135 mg/dL 70-110 H TESTED AT [place] [address] ([facility]) (test code = [facility] 1538) [address] POCT-GLUCOSE [id number] 13:28:00 Test Item Value Reference Range Interpretation Comments POC-GLUCOSE METER 96 mg/dL 70-110 TESTED AT [facility] 6720 (BEAKER) (test code = [place] [address] 1538) [id number] 09:15:00 Test Item Value Reference Range Interpretation Comments PARTIAL THROMBOPLASTIN TIME 58.1 seconds 22.5-36.0 H (BEAKER) (test code = 760) BASIC METABOLIC [id number] 07:31:00 Test Item Value Reference Range Interpretation [...] S NOT APPLICABLE FOR DIALYSIS PATIEN TS. [id number] 07:19:00 Test Item Value Reference Range Interpretation Comments PHOSPHORUS (BEAKER) (test code = 3.7 mg/dL 2.3-4.7 604) [id number] 07:19:00 Test Item Value Reference Range Interpretation Comments MAGNESIUM (BEAKER) (test code = 1.7 mg/dL 1.6-2.6 627) [id number] 07:07:00 Test Item Value Reference Range Interpretation Comments PARTIAL THROMBOPLASTIN TIME 124.4 seconds 22.5-36.0 H (BEAKER) (test code = 760) PROTHROMBIN [id number] 07:02:00 Test Item Value Reference Range Interpretation [...] 0-1 PERCENT (BEAKER) (test code = 2801) [id number] 23:01:00 Test Item Value Reference Range Interpretation Comments PARTIAL THROMBOPLASTIN TIME 46.5 seconds 22.5-36.0 H ([facility]) (test code = 760) POCT-GLUCOSE [id number] 22:45:00 Test Item Value Reference Range Interpretation Comments POC-GLUCOSE METER 144 mg/dL 70-110 H TESTED AT [place] [address] ([facility]) (test code = [facility] 1538) [address] [id number] 15:02:00 Test Item Value Reference Range Interpretation Comments PARTIAL THROMBOPLASTIN TIME 56.1 seconds 22.5-36.0 H ([facility]) (test code = 760) POCT-GLUCOSE [id number] 14:39:00 Test Item Value Reference Range Interpretation Comments POC-GLUCOSE METER 189 mg/dL 70-110 H TESTED AT [facility] 67 ([facility]) (test code = [facility] Laura [facility] 1538) [address] HIV-1 PCR, [id number] 13:58:00 Test Item Value Reference Range Interpretation Comments HIV-1 NUMERIC RESULT ([facility]) (test 170 Cp/mL <20 H code = 2704) This test uses a Real-Time Polymerase Chain Reaction (RT-PCR) methodology to detect a highly conserved region of the HIV-1 gag gene and was performed using the ERICH AmpliPrep/ERICH TaqMan HIV-1 test kit version 2.0 ([employer]Reportable range for this assay is 20 - 10,000,000 copies per mL (1.3 - 7.0 Log copies/mL).[id number] 12:54:00 Test Item Value Reference Range Interpretation Comments PARTIAL THROMBOPLASTIN TIME 143.6 seconds 22.5-36.0 H (BEAKER) (test code = 760) [id number] 10:00:00Medical Cytology Report Case: [id number] Authorizing Provider: Alison Solano MD Collected: 08/13/2018 1803 Ordering Location: [address] Received: 08/14/2018 0923 Service Pathologist: Yamil Hamm MD Specimen: Pleural, Right RIGHT PLEURAL FLUID (CYTOSPINS AND CELL BLOCK): - NO MALIGNANT CELLS IDENTIFIED (SEE COMMENT) Signing Pathologist Direct Phone Line: [phone] signed by Ymail Hamm MD on 08/16/2018 at 10:00 AMCytospins [...] thoracentesis may be considered when fluid reaccumulates. 12393, 05372, 05774, 46891 x 2Left pleural effusion, history of AIDS, Kaposi's sarcoma, hepatitis C.RIGHT PLEURAL FLUID 300 mls bloody; 4 cytospins, cell blockCollected: [id number]: [id number] interpretation of this case included the use of immunohistochemistry or special stains. Please see the immunohistochemistry results in the COMMENT section. Immunohistochemistry technical testing was performed at [facility], Pathology Laboratory where it was developed and [...] as qualified toperform high complexity clinical laboratory testing.[facility], Department of Pathology, [address] [place] [address], [facility], [address] [place] [address], [facility], [facility] of [facility], [address] [place] [address], FJNZ-GLUCOSE [id number] 08:29:00 Test Item Value Reference Range Interpretation Comments POC-GLUCOSE METER 96 mg/dL 70-110 TESTED AT [place] [address] (BEAKER) (test code = [place] [address] 1538) BODY FLUID CULTURE + GRAM [id number] 07:54:00 Test Item Value Reference Range Interpretation Comments CULTURE (BEAKER) (test code No growth = 1095) GRAM STAIN RESULT (BEAKER) <1+ WBCs (test code = 1123) GRAM STAIN RESULT (BEAKER) No organisms seen (test code = 22101) BASIC METABOLIC [id number] 06:30:00 Test Item Value Reference Range Interpretation [...] S NOT APPLICABLE FOR DIALYSIS PATIEN TS. [id number] 06:26:00 Test Item Value Reference Range Interpretation Comments MAGNESIUM (BEAKER) (test code = 1.6 mg/dL 1.6-2.6 627) [id number] 05:48:00 Test Item Value Reference Range Interpretation Comments PARTIAL THROMBOPLASTIN TIME 80.3 seconds 22.5-36.0 H (BEAKER) (test code = 760) While on warfarin.PROTHROMBIN TIME/[id number] 05:46:00 Test Item Value Reference Range Interpretation [...] valves.While on warfarin.CBC W/PLT COUNT & AUTO [id number] 05:28:00 Test Item Value Reference Range Interpretation [...] 0-1 PERCENT (BEAKER) (test code = 2801) [id number] 22:09:00 Test Item Value Reference Range Interpretation Comments PARTIAL THROMBOPLASTIN TIME 61.5 seconds 22.5-36.0 H (BEAKER) (test code = 760) RAD, CHEST, 1 VIEW, NON [id number] 20:20:00Reason for exam:->eval right effusionShould this be [...] Anderson Verified Date/Time: 08/15/2018 20:20:24 Reading Location: [facility] Radiology Reading Room POCT-GLUCOSE [id number] 19:05:00 Test Item Value Reference Range Interpretation Comments POC-GLUCOSE METER 87 mg/dL 70-110 TESTED AT [place] [address] ([facility]) (test code = [facility] [address] 1538) POCT-GLUCOSE [id number] 13:12:00 Test Item Value Reference Range Interpretation Comments POC-GLUCOSE METER 162 mg/dL 70-110 H TESTED AT [place] [address] ([facility]) (test code = [facility] 1538) [address] [id number] 12:48:00 Test Item Value Reference Range Interpretation Comments PARTIAL THROMBOPLASTIN TIME 89.1 seconds 22.5-36.0 H ([facility]) (test code = 760) POCT-GLUCOSE [id number] 09:58:00 Test Item Value Reference Range Interpretation Comments POC-GLUCOSE METER 229 mg/dL 70-110 H TESTED AT [place] [address] ([facility]) (test code = [facility] 1538) [address] BASIC METABOLIC [id number] 05:40:00 Test Item Value Reference Range Interpretation [...] PATIEN TS. CBC W/PLT COUNT & AUTO [id number] 05:38:00 Test Item Value Reference Range Interpretation [...] 0-1 PERCENT (BEAKER) (test code = 2801) [id number] 05:28:00 Test Item Value Reference Range Interpretation Comments MAGNESIUM (BEAKER) (test code = 1.8 mg/dL 1.6-2.6 627) [id number] 04:47:00 Test Item Value Reference Range Interpretation Comments PARTIAL THROMBOPLASTIN TIME 60.9 seconds 22.5-36.0 H (BEAKER) (test code = 760) PROTHROMBIN [id number] 04:46:00 Test Item Value Reference Range Interpretation Comments PROTIME (BEAKER) (test code = 17.9 seconds 11.7-14.7 H 759) INR (BEAKER) (test code = 370) 1.5 <=5.9 RECOMMENDED COUMADIN/WARFARIN INR THERAPY RANGESSTANDARD DOSE: 2.0 - 3.0 Includes: PROPHYLAXIS forvenous thrombosis, systemic embolization; TREATMENT for venous thrombosis and/or pulmonary embolus.HIGH RISK: Target INR is 2.5-3.5 for patients with mechanical heart valves.[id number] 20:56:00 Test Item Value Reference Range Interpretation Comments PARTIAL THROMBOPLASTIN TIME 52.1 seconds 22.5-36.0 H (BEAKER) (test code = 760) CT, CHEST, WITHOUT [id number] 19:06:00S/p fall in Nov--> right effusion, tapped [...] Tapiaepdamion Verified Date/Time: 08/14/2018 19:06:09 Reading Location: [address] Reading [facility] 2018-08-14 12:40:00 Test Item Value Reference Range Interpretation Comments PARTIAL THROMBOPLASTIN TIME 48.4 seconds 22.5-36.0 H (BEAKER) (test code = 760) CD4 T CELL [id number] 11:15:00 Test Item Value Reference Range Interpretation [...] 107-698 L (BEAKER) (test code = 3491) [id number] 10:48:00 Test Item Value Reference Range Interpretation Comments PHOSPHORUS (BEAKER) (test code = 5.2 mg/dL 2.3-4.7 H 604) BASIC METABOLIC [id number] 07:13:00 Test Item Value Reference Range Interpretation [...] S NOT APPLICABLE FOR DIALYSIS PATIEN TS. [id number] 07:11:00 Test Item Value Reference Range Interpretation Comments MAGNESIUM (BEAKER) (test code = 1.8 mg/dL 1.6-2.6 627) [id number] 07:00:00 Test Item Value Reference Range Interpretation Comments PARTIAL THROMBOPLASTIN TIME 59.2 seconds 22.5-36.0 H (BEAKER) (test code = 760) PROTHROMBIN [id number] 06:59:00 Test Item Value Reference Range Interpretation [...] 0-1 PERCENT (BEAKER) (test code = 2801) [id number] 00:30:00 Test Item Value Reference Range Interpretation Comments PARTIAL THROMBOPLASTIN TIME 56.7 seconds 22.5-36.0 H (BEAKER) (test code = 760) BODY FLUID CELL COUNT WITH [id number] 19:28:00 Test Item Value Reference Range Interpretation Comments APPEARANCE FLUID (BEAKER) (test Cloudy Clear A code = 510) COLOR FLUID (BEAKER) (test code Red Colorless, Straw A = 511) RBC FLUID (BEAKER) (test code = 66944 /cu mm <=1 H 513) ADJUSTED WBC [...] Tube (test code = 2873) ALBUMIN, BODY [id number] 18:40:00 Test Item Value Reference Range Interpretation Comments ALBUMIN FLUID (BEAKER) (test code = 2.1 gm/dL 501) Reference Range: No Normals Assay performance has not been validated for this type of specimen.LACTATE DEHYDROGENASE (LDH), BODY [id number] 18:40:00 Test Item Value Reference Range Interpretation [...] 125-220 H code = 635) HEPATIC FUNCTION [id number] 18:40:00 Test Item Value Reference Range Interpretation [...] 6-55 347) RAD, CHEST, 1 VIEW, NON [id number] 17:56:00Reason for exam:->post Right thoracentesisShould this be [...] Arteaga Verified Date/Time: 08/13/2018 17:56:18 Reading Location: [facility] C013W Consult Reading Room U/S, [id number] 16:22:00Reason for exam:->shortness of breath, recurrent right pleural effusionShould this be performed at the bedside?->NoFINAL REPORT Ultrasound guided right thoracentesis, 08/13/2018. Clinical History: Right pleural effusion. Modality: Ultrasound. Sedation: None. Control Tower Radio Operator: Gini. Stock Puller: None. Estimated Blood Loss: 1cc Specimen: 1600 [...] Musa Verified Date/Time: 08/13/2018 16:22:16 Reading Location: [facility] P006J Ultrasound Reading Room [id number] 07:18:00 Test Item Value Reference Range Interpretation Comments MAGNESIUM (BEAKER) (test code = 2.0 mg/dL 1.6-2.6 627) BASIC METABOLIC [id number] 07:18:00 Test Item Value Reference Range Interpretation [...] PATIEN TS. RAD, CHEST, 1 VIEW, NON [id number] 06:25:00Reason for exam:->SOBShould this be performed at [...] Taylor Verified Date/Time: 08/13/2018 06:25:21 Reading Location: [address] Re ading Room [id number] 05:49:00 Test Item Value Reference Range Interpretation Comments PARTIAL THROMBOPLASTIN TIME 42.0 seconds 22.5-36.0 H (BEAKER) (test code = 760) PROTHROMBIN TIME/[id number] 05:48:00 Test Item Value Reference Range Interpretation [...] PERCENT (BEAKER) (test code = 2801) POCT-GLUCOSE [id number] 18:30:00 Test Item Value Reference Range Interpretation Comments POC-GLUCOSE METER 80 mg/dL 70-110 TESTED AT [facility] [address] (BEAKER) (test code = [place] [address] 1538) RAD, CHEST, 1 VIEW, NON [id number] 13:46:00Reason for exam:->evaluate pleural effusionShould this be performed at the bedside?->YesFINAL REPORT Comparison: 08/02/2018 TECHNIQUE: Single view of the chest FINDINGS Bilateral interstitial and airspace opacities are stable. Bilateral pleural effusions seen, right greater than left. No gross new lung parenchymal changes. Post surgical changes in the mediastinum. IMPRESSION: No significant interval change. Signed: Kyle Rome MDReport Verified Date/Time: 08/06/2018 13:46:20 Reading Location: [facility] Radiology Reading Room [id number] 09:33:00 Test Item Value Reference Range Interpretation Comments PARTIAL THROMBOPLASTIN TIME 113.6 seconds 22.5-36.0 H (BEAKER) (test code = 760) [id number] 06:48:00 Test Item Value Reference Range Interpretation [...] heart valves.While on warfarin.While on warfarin.BASIC METABOLIC [id number] 06:45:00 Test Item Value Reference Range Interpretation [...] NOT APPLICABLE FOR DIALYSIS PATIEN TS. PROTHROMBIN [id number] 06:43:00 Test Item Value Reference Range Interpretation [...] WBC 0-0 (BEAKER) (test code = 413) [id number] 20:40:00 Test Item Value Reference Range Interpretation Comments PARTIAL THROMBOPLASTIN TIME 81.7 seconds 22.5-36.0 H (BEAKER) (test code = 760) [id number] 14:05:00 Test Item Value Reference Range Interpretation Comments PARTIAL THROMBOPLASTIN TIME 91.5 seconds 22.5-36.0 H (BEAKER) (test code = 760) BASIC METABOLIC [id number] 07:02:00 Test Item Value Reference Range Interpretation [...] S NOT APPLICABLE FOR DIALYSIS PATIEN TS. [id number] 06:47:00 Test Item Value Reference Range Interpretation [...] valves.Ok to add onOk to add onPROTHROMBIN [id number] 06:46:00 Test Item Value Reference Range Interpretation [...] 0-1 PERCENT (BEAKER) (test code = 2801) [id number] 16:22:00 Test Item Value Reference Range Interpretation Comments PARTIAL THROMBOPLASTIN TIME 76.1 seconds 22.5-36.0 H (BEAKER) (test code = 760) BODY FLUID CULTURE + GRAM [id number] 09:10:00 Test Item Value Reference Range Interpretation Comments CULTURE (BEAKER) (test code No growth = 1095) GRAM STAIN RESULT (BEAKER) <1+ WBCs (test code = 1123) GRAM STAIN RESULT (BEAKER) No organisms seen (test code = 83385) CBC W/PLT COUNT & AUTO [id number] 07:23:00 Test Item Value Reference Range Interpretation [...] (BEAKER) (test code = 413) BASIC METABOLIC [id number] 07:05:00 Test Item Value Reference Range Interpretation [...] S NOT APPLICABLE FOR DIALYSIS PATIEN TS. [id number] 06:53:00 Test Item Value Reference Range Interpretation [...] heart valves.Ok to add onOk to add [id number] 06:53:00 Test Item Value Reference Range Interpretation Comments PARTIAL THROMBOPLASTIN TIME 70.3 seconds 22.5-36.0 H (BEAKER) (test code = 760) PROTHROMBIN TIME/[id number] 06:52:00 Test Item Value Reference Range Interpretation Comments PROTIME (BEAKER) (test code = 17.5 seconds 11.7-14.7 H 759) INR (BEAKER) (test code = 370) 1.4 <=5.9 RECOMMENDED COUMADIN/WARFARIN INR THERAPY RANGESSTANDARD DOSE: 2.0 - 3.0 Includes: PROPHYLAXIS forvenous thrombosis, systemic embolization; TREATMENT for venous thrombosis and/or pulmonary embolus.HIGH RISK: Target INR is 2.5-3.5 for patients with mechanical heart valves.PROTHROMBIN [id number] 06:51:00 Test Item Value Reference Range Interpretation Comments PROTIME (BEAKER) (test code = 17.7 seconds 11.7-14.7 H 759) INR (BEAKER) (test code = 370) 1.5 <=5.9 RECOMMENDED COUMADIN/WARFARIN INR THERAPY RANGESSTANDARD DOSE: 2.0 - 3.0 Includes: PROPHYLAXIS forvenous thrombosis, systemic embolization; TREATMENT for venous thrombosis and/or pulmonary embolus.HIGH RISK: Target INR is 2.5-3.5 for patients with mechanical heart valves.While on warfarin.[id number] 22:47:00 Test Item Value Reference Range Interpretation Comments PARTIAL THROMBOPLASTIN TIME 73.6 seconds 22.5-36.0 H (BEAKER) (test code = 760) [id number] 13:08:00 Test Item Value Reference Range Interpretation Comments PARTIAL THROMBOPLASTIN TIME 49.2 seconds 22.5-36.0 H (BEAKER) (test code = 760) BASIC METABOLIC [id number] 06:56:00 Test Item Value Reference Range Interpretation [...] S NOT APPLICABLE FOR DIALYSIS PATIEN TS. [id number] 06:56:00 Test Item Value Reference Range Interpretation Comments PARTIAL THROMBOPLASTIN TIME 67.5 seconds 22.5-36.0 H (BEAKER) (test code = 760) [id number] 06:45:00 Test Item Value Reference Range Interpretation [...] valves.Ok to add onOk to add onPROTHROMBIN TIME/[id number] 06:44:00 Test Item Value Reference Range Interpretation [...] /100 WBC 0-0 (test code = 413) [id number] 02:18:00 Test Item Value Reference Range Interpretation Comments PARTIAL THROMBOPLASTIN TIME 67.1 seconds 22.5-36.0 H (BEAKER) (test code = 760) [id number] 18:56:00 Test Item Value Reference Range Interpretation Comments PARTIAL THROMBOPLASTIN TIME 72.5 seconds 22.5-36.0 H (BEAKER) (test code = 760) POCT-GLUCOSE [id number] 13:08:00 Test Item Value Reference Range Interpretation Comments POC-GLUCOSE METER 121 mg/dL 70-110 H TESTED AT [facility] [address] ([facility]) (test code = [place] 1538) [address] [id number] 12:07:00 Test Item Value Reference Range Interpretation Comments PARTIAL THROMBOPLASTIN TIME 50.7 seconds 22.5-36.0 H (BEAKER) (test code = 760) Ok to add onPROTHROMBIN TIME/[id number] 12:05:00 Test Item Value Reference Range Interpretation [...] = 413) RAD, CHEST, 1 VIEW, NON [id number] 11:24:00Reason for exam:->pleural effusionShould this be performed at the bedside?->YesFINAL REPORT AP chest HISTORY: Pleural effusion COMPARISON: 08/01/2018 IMPRESS ION:Intact skeleton. Cardiomegaly. Moderate interstitial edema. Moderate right and small left effusions. No pneumothorax. Signed: Mandy Chairez MDReport Verified Date/Time: 08/02/2018 11:24:33 Reading Location: [address] Consult Reading Room BASIC METABOLIC [id number] 02:55:00 Test Item Value Reference Range Interpretation [...] I S NOT APPLICABLE FOR DIALYSIS PATIRUBÉN ULLOA [id number] 02:39:00 Test Item Value Reference Range Interpretation Comments PARTIAL THROMBOPLASTIN TIME 51.6 seconds 22.5-36.0 H (BEAKER) (test code = 760) CBC W/PLT COUNT & AUTO [id number] 02:30:00 Test Item Value Reference Range Interpretation [...] = 2801) BODY FLUID CELL COUNT WITH [id number] 21:13:00 Test Item Value Reference Range Interpretation Comments APPEARANCE FLUID (BEAKER) (test Bloody Clear A code = 510) COLOR FLUID (BEAKER) (test code Sunil Colorless, Straw A = 511) RBC FLUID (BEAKER) (test code = 85487 /cu mm <=1 H 513) ADJUSTED WBC [...] Tube (test code = 2873) ALBUMIN, BODY [id number] 20:00:00 Test Item Value Reference Range Interpretation Comments ALBUMIN FLUID (BEAKER) (test code = 2.1 gm/dL 501) Reference Range: No Normals Assay performance has not been validated for this type of specimen.LACTATE DEHYDROGENASE (LDH), BODY [id number] 20:00:00 Test Item Value Reference Range Interpretation [...] of specimen.RAD, CHEST, PA OR AP, 1 [id number] 17:08:00Ultrasound Room 1Reason for exam:->s/p Right sided [...] MDReport Verified Date/Time: 08/01/2018 17:08:13 Reading Location: [facility] Radiology Reading Room U/S, [id number] 17:03:00 Laterality?->RightReason for exam:->large pleural effusionFINAL REPORT HISTORY: Right pleural effusion Following informed written consent, the patient's right posterior chest wall was prepped and draped in the usual sterile manner. 2% lidocaine was given locally for anesthesia. No conscious sedation was administered. Vital signs were monitored and remained stable. Using ultrasound guidance and a 5 Indonesian angiocatheter, access was gain ed to the [...] Seymour Verified Date/Time: 08/01/2018 17:03:15 Reading Location: [address] Ultrasound Reading Room RAD, CHEST, 1 VIEW, NON [id number] 12:40:00Reason for exam:->pleural effusion; shortness of breathShould [...] MDReport Verified Date/Time: 08/01/2018 12:40:42 Reading Location: [facility] Radiology Reading Room APTT 2018-08-01 11:33:00 Test Item Value Reference Range Interpretation Comments PARTIAL THROMBOPLASTIN TIME 118.1 seconds 22.5-36.0 H (BEAKER) (test code = 760) BASIC METABOLIC [id number] 02:07:00 Test Item Value Reference Range Interpretation [...] S NOT APPLICABLE FOR DIALYSIS PATIEN TS. [id number] 01:55:00 Test Item Value Reference Range Interpretation [...] is 2.5-3.5 for patients with mechanical heart valves.[id number] 01:55:00 Test Item Value Reference Range Interpretation Comments PARTIAL THROMBOPLASTIN TIME 96.8 seconds 22.5-36.0 H (BEAKER) (test code = 760) CBC W/PLT COUNT & AUTO [id number] 01:38:00 Test Item Value Reference Range Interpretation [...] 0-1 PERCENT (BEAKER) (test code = 2801) [id number] 18:58:00 Test Item Value Reference Range Interpretation Comments PARTIAL THROMBOPLASTIN TIME 61.7 seconds 22.5-36.0 H (BEAKER) (test code = 760) [id number] 09:22:00 Test Item Value Reference Range Interpretation Comments PARTIAL THROMBOPLASTIN TIME 61.5 seconds 22.5-36.0 H (BEAKER) (test code = 760) BASIC METABOLIC [id number] 02:14:00 Test Item Value Reference Range Interpretation [...] S NOT APPLICABLE FOR DIALYSIS PATIEN TS. PT/[id number] 01:43:00 Test Item Value Reference Range Interpretation [...] is 2.5-3.5 for patients with mechanical heart valves.[id number] 01:43:00 Test Item Value Reference Range Interpretation Comments PARTIAL THROMBOPLASTIN TIME 62.7 seconds 22.5-36.0 H (BEAKER) (test code = 760) CBC W/PLT COUNT & AUTO [id number] 01:32:00 Test Item Value Reference Range Interpretation [...] 0-1 PERCENT (BEAKER) (test code = 2801) [id number] 18:38:00 Test Item Value Reference Range Interpretation Comments PARTIAL THROMBOPLASTIN TIME 38.9 seconds 22.5-36.0 H (BEAKER) (test code = 760) Prior to initiating heparinPLATELET [id number] 18:17:00 Test Item Value Reference Range Interpretation Comments PLATELET COUNT (BEAKER) (test 115 K/CU MM 150-450 L code = 756) RAD, CHEST, 2 [id number] 18:05:00Reason for exam:->sob and pleural effusionFINAL REPORT [...] Aditi Sykes Verified Date/Time: 07/30/2018 18:05:46Reading Location: [facility] C013W Consult Reading Room C METABOLIC [id number] 05:26:00 Test Item Value Reference Range Interpretation [...] S NOT APPLICABLE FOR DIALYSIS PATIEN TS. PT/[id number] 05:25:00 Test Item Value Reference Range Interpretation [...] 2.5-3.5 for patients with mechanical heart valves.PROTHROMBIN TIME/[id number] 05:24:00 Test Item Value Reference Range Interpretation [...] (test code = 2801) HEPATITIS B SURFACE [id number] 12:09:00 Test Item Value Reference Range Interpretation Comments HEPATITIS B SURFACE ANTIGEN (2) Nonreactive Nonreactive (BEAKER) (test code = 2585) POCT-GLUCOSE [id number] 07:50:00 Test Item Value Reference Range Interpretation Comments POC-GLUCOSE METER 93 mg/dL 70-110 TESTED AT [facility] [address] (BEAKER) (test code = [place] [address] 1538) [id number] 04:59:00 Test Item Value Reference Range Interpretation [...] for patients with mechanical heart valves.BASIC METABOLIC [id number] 04:59:00 Test Item Value Reference Range Interpretation [...] PATIEN TS. CBC W/PLT COUNT & AUTO [id number] 04:51:00 Test Item Value Reference Range Interpretation [...] (test code = 2801) AFB CULTURE + [id number] 16:13:00 Test Item Value Reference Range Interpretation Comments CULTURE (BEAKER) (test No acid-fast bacilli code = 1095) isolated in 42 days AFB SMEAR (BEAKER) No acid fast bacilli (test code = 994) seen AFB CULTURE + [id number] 16:13:00 Test Item Value Reference Range Interpretation Comments CULTURE (BEAKER) (test No acid-fast bacilli code = 1095) isolated in 42 days AFB SMEAR (BEAKER) No acid fast bacilli (test code = 994) seen FUNGUS CULTURE + [id number] 07:13:00 Test Item Value Reference Range Interpretation Comments CULTURE (BEAKER) (test No fungus isolated in code = 1095) 28 days FUNGUS SMEAR (BEAKER) No fungi seen (test code = 1406) FUNGUS CULTURE + [id number] 07:13:00 Test Item Value Reference Range Interpretation Comments CULTURE (BEAKER) (test No fungus isolated in code = 1095) 28 days FUNGUS SMEAR (BEAKER) No fungi seen (test code = 1406) TISSUE [id number] 19:17:00Surgical Pathology Report Case: [id number] Authorizing Provider: Juliana Martinez MD Collected: 05/23/201825 Ordering Location: [facility] Received: 05/23/2018 0923 SERVICES Pathologist: Brigida Parks MD Specimen: SoftTissue, Other, LEFT GROIN - TISSUE BIOPSY SKIN AND SOFT TISSUE,GROIN,LEFT, BIOPSY: - ABSCESSES, GRANULOMAS AND CHRONIC INFLAMMATION - NEGATIVE FOR DYSPLASIA OR MALIGNANCY - AFB AND GMS STAINS ARE NEGATIVE (SEE COMMENT) Signing Pathologist Direct Phone Line: [phone] signed by Brigida Parks MD on 06/02/2018 at 7:17 PMCorrelation with culture studies is recommended.31557Bfbozttte abscess groinLeft groin tissue biopsyReceived fresh labeled "soft tissue, other", description "left groin tissue biopsy" are two dark-porter, wrinkled,hair- bearing strips of skin measuring 1.5 and 2.6 cm in length, 0.3 cm in diameter and excised to a depth of 0.3 cm.Sectioning reveals no discrete masses.The specimen is entirely submitted in cassettesA1. DB/ewPOCT-GLUCOSE [id number] 08:51:00 Test Item Value Reference Range Interpretation Comments POC-GLUCOSE METER 101 mg/dL 70-110 TESTED AT [facility] [address] (BEAKER) (test code = [place] 1538) [address] CBC W/PLT COUNT & AUTO [id number] 06:01:00 Test Item Value Reference Range Interpretation [...] PERCENT (BEAKER) (test code = 2801) PROTHROMBIN [id number] 05:51:00 Test Item Value Reference Range Interpretation Comments PROTIME (BEAKER) (test code = 25.9 seconds 11.7-14.7 H 759) INR (BEAKER) (test code = 370) 2.4 <=5.9 RECOMMENDED COUMADIN/WARFARIN INR THERAPY RANGESSTANDARD DOSE: 2.0 - 3.0 Includes: PROPHYLAXIS forvenous thrombosis, systemic embolization; TREATMENT for venous thrombosis and/or pulmonary embolus.HIGH RISK: Target INR is 2.5-3.5 for patients with mechanical heart valves.BASIC METABOLIC [id number] 05:46:00 Test Item Value Reference Range Interpretation [...] mg/dL 8.4-10.2 (test code = 697) EGFR ([facility]) (test 14 mL/min/1.73 ESTIMA JAYLA GFR IS code = 1092) sq m NOT ACCURATE CREATININE CLEARANCE IN PREDICTING GLOMERULAR FILTRATION RATE . ESTIMATED GFR I S NOT APPLICABLE FOR DIALYSIS PATIEN TS. POCT-GLUCOSE [id number] 20:34:00 Test Item Value Reference Range Interpretation Comments POC-GLUCOSE METER 261 mg/dL 70-110 H TESTED AT [place] [address] ([facility]) (test code = [facility] 1538) [address] POCT-GLUCOSE [id number] 18:12:00 Test Item Value Reference Range Interpretation Comments POC-GLUCOSE METER 139 mg/dL 70-110 H TESTED AT [place] [address] ([facility]) (test code = [facility] 1538) [address] POCT-GLUCOSE [id number] 11:51:00 Test Item Value Reference Range Interpretation Comments POC-GLUCOSE METER 147 mg/dL 70-110 H TESTED AT [place] [address] ([facility]) (test code = [facility] 1538) [address] POCT-GLUCOSE [id number] 08:42:00 Test Item Value Reference Range Interpretation Comments POC-GLUCOSE METER 104 mg/dL 70-110 TESTED AT [place] [address] ([facility]) (test code = [facility] 1538) [address] CBC W/PLT COUNT & AUTO [id number] 06:56:00 Test Item Value Reference Range Interpretation Comments WHITE BLOOD CELL COUNT ([facility]) 8.0 K/ L 3.5-10.5 (test code = 775) RED BLOOD CELL COUNT ([facility]) 3.40 M/ L 4.63-6.08 L (test code = 761) HEMOGLOBIN ([facility]) (test code = 10.2 GM/DL 13.7-17.5 L 410) HEMATOCRIT ([facility]) (test code = 32.0 % 40.1-51.0 L 411) MEAN CORPUSCULAR VOLUME ([facility]) 94.1 fL 79.0-92.2 H (test code = 753) MEAN CORPUSCULAR HEMOGLOBIN 30.0 pg 25.7-32.2 ([facility]) (test code = 751) MEAN CORPUSCULAR HEMOGLOBIN [...] (BEAKER) (test code = 2801) BASIC METABOLIC [id number] 06:49:00 Test Item Value Reference Range Interpretation [...] NOT APPLICABLE FOR DIALYSIS PATIEN TS. PROTHROMBIN [id number] 06:46:00 Test Item Value Reference Range Interpretation Comments PROTIME ([employer]) (test code = 26.9 seconds 11.7-14.7 H 759) INR ([employer]) (test code = 370) 2.5 <=5.9 RECOMMENDED COUMADIN/WARFARIN INR THERAPY RANGESSTANDARD DOSE: 2.0 - 3.0 Includes: PROPHYLAXIS forvenous thrombosis, systemic embolization; TREATMENT for venous thrombosis and/or pulmonary embolus.HIGH RISK: Target INR is 2.5-3.5 for patients with mechanical heart valves.ANAEROBIC [id number] 00:38:00 Test Item Value Reference Range Interpretation Comments CULTURE ([place]) (test No anaerobes isolated code = 1095) ANAEROBIC [id number] 00:38:00 Test Item Value Reference Range Interpretation Comments CULTURE ([employer]) (test No anaerobes isolated code = 1095) POCT-GLUCOSE [id number] 20:43:00 Test Item Value Reference Range Interpretation Comments POC-GLUCOSE METER 124 mg/dL 70-110 H TESTED AT [place] [address] ([employer]) (test code = [place] 1538) [address] POCT-GLUCOSE [id number] 17:17:00 Test Item Value Reference Range Interpretation Comments POC-GLUCOSE METER 190 mg/dL 70-110 H TESTED AT [facility] [address] ([place]) (test code = [place] 1538) [address] POCT-GLUCOSE [id number] 11:54:00 Test Item Value Reference Range Interpretation Comments POC-GLUCOSE METER 195 mg/dL 70-110 H TESTED AT [place] [address] ([employer]) (test code = [place] 1538) [address] C. DIFFICILE GDH [id number] 11:16:00 Test Item Value Reference Range Interpretation Comments CDT TOXIN (test code Negative Negative = 1375778394) CDT GDH ANTIGEN (test Negative Negative No ind ication of code = 1601585115) Clostridi um difficile infection and n o colonization. Discontinue ent kenrick isolation and t herapy. Testing performed by [employer] Rapid Cassette Assay. For GDH, published sensitivity of the assay is 98.7% compared to cytotoxicity testing. For Toxin AB, published sensitivity is 87.8% and specificity 99.4% compared to cytotoxicity testing.Verification of kit performance was done by the [facility] prior to clinical use.SURGICALLY OBTAINED CULTURE + GRAM [id number] 09:22:00 Test Item Value Reference Interpretation Comments [...] No organisms seen (BEAKER) (test code = 762351) SURGICALLY OBTAINED CULTURE + GRAM [id number] 09:20:00 Test Item Value Reference Range Interpretation Comments CULTURE (BEAKER) (test code No growth = 1095) GRAM STAIN RESULT (BEAKER) 4+ WBCs (test code = 1123) GRAM STAIN RESULT (BEAKER) No organisms seen (test code = 83990) POCT-GLUCOSE [id number] 08:21:00 Test Item Value Reference Range Interpretation Comments POC-GLUCOSE METER 101 mg/dL 70-110 TESTED AT [facility] [address] (BEAKER) (test code = [place] 1538) [address] BASIC METABOLIC [id number] 07:57:00 Test Item Value Reference Range Interpretation [...] NOT APPLICABLE FOR DIALYSIS PATIEN TS. PROTHROMBIN [id number] 06:36:00 Test Item Value Reference Range Interpretation [...] PERCENT (BEAKER) (test code = 2801) POCT-GLUCOSE [id number] 21:40:00 Test Item Value Reference Range Interpretation Comments POC-GLUCOSE METER 176 mg/dL 70-110 H TESTED AT [place] [address] ([facility]) (test code = [place] 1538) [address] POCT-GLUCOSE [id number] 16:07:00 Test Item Value Reference Range Interpretation Comments POC-GLUCOSE METER 120 mg/dL 70-110 H TESTED AT [place] [address] ([facility]) (test code = [place] 1538) [address] POCT-GLUCOSE [id number] 08:31:00 Test Item Value Reference Range Interpretation Comments POC-GLUCOSE METER 119 mg/dL 70-110 H TESTED AT [facility] 6720 (BEAKER) (test code = [place] 1538) [address] BASIC METABOLIC [id number] 08:19:00 Test Item Value Reference Range Interpretation [...] APPLICABLE FOR DIALYSIS PATIEN TS. VANCOMYCIN LEVEL, [id number] 08:16:00 Test Item Value Reference Range Interpretation Comments VANCOMYCIN RANDOM (BEAKER) (test 17.6 ug/mL code = 523) Reference Range: No NormalsPROTHROMBIN [id number] 07:21:00 Test Item Value Reference Range Interpretation [...] PERCENT (BEAKER) (test code = 2801) BLOOD [id number] 06:00:00 Test Item Value Reference Range Interpretation Comments CULTURE (BEAKER) (test No growth in 5 days code = 1095) BLOOD [id number] 00:00:00 Test Item Value Reference Range Interpretation Comments CULTURE (BEAKER) (test No growth in 5 days code = 1095) POCT-GLUCOSE [id number] 22:05:00 Test Item Value Reference Range Interpretation Comments POC-GLUCOSE METER 169 mg/dL 70-110 H TESTED AT [place] [address] (BEAKER) (test code = [facility] 1538) [address] POCT-GLUCOSE [id number] 18:20:00 Test Item Value Reference Range Interpretation Comments POC-GLUCOSE METER 110 mg/dL 70-110 TESTED AT [place] [address] (BEAKER) (test code = [facility] 1538) [address] POCT-GLUCOSE [id number] 17:17:00 Test Item Value Reference Range Interpretation Comments POC-GLUCOSE METER 99 mg/dL 70-110 TESTED AT [place] [address] (BEAKER) (test code = [facility] [address] 1538) SPIN/CONCENTRATION [id number] 14:49:00 Test Item Value Reference Range Interpretation Comments CONCENTRATION CHARGED (BEAKER) (test Done code = 2657) SPIN/CONCENTRATION [id number] 14:49:00 Test Item Value Reference Range Interpretation Comments CONCENTRATION CHARGED (BEAKER) (test Done code = 2657) POCT-GLUCOSE [id number] 12:13:00 Test Item Value Reference Range Interpretation Comments POC-GLUCOSE METER 188 mg/dL 70-110 H TESTED AT [place] [address] (BEAKER) (test code = [facility] 1538) [address] BASIC METABOLIC [id number] 09:56:00 Test Item Value Reference Range Interpretation [...] NOT APPLICABLE FOR DIALYSIS PATIEN TS. POCT-GLUCOSE [id number] 07:45:00 Test Item Value Reference Range Interpretation Comments POC-GLUCOSE METER 108 mg/dL 70-110 TESTED AT [facility] [address] (BEAKER) (test code = [place] 1538) [address] CBC W/PLT COUNT & AUTO [id number] 07:00:00 Test Item Value Reference Range Interpretation [...] PERCENT (BEAKER) (test code = 2801) PROTHROMBIN [id number] 06:47:00 Test Item Value Reference Range Interpretation Comments PROTIME (BEAKER) (test code = 20.7 seconds 11.7-14.7 H 759) INR (BEAKER) (test code = 370) 1.8 <=5.9 RECOMMENDED COUMADIN/WARFARIN INR THERAPY RANGESSTANDARD DOSE: 2.0 - 3.0 Includes: PROPHYLAXIS forvenous thrombosis, systemic embolization; TREATMENT for venous thrombosis and/or pulmonary embolus.HIGH RISK: Target INR is 2.5-3.5 for patients with mechanical heart valves.POCT-GLUCOSE [id number] 20:42:00 Test Item Value Reference Range Interpretation Comments POC-GLUCOSE METER 134 mg/dL 70-110 H TESTED AT [facility] ([facility]) (test code = [facility] [place] 1538) [address] POCT-GLUCOSE [id number] 13:29:00 Test Item Value Reference Range Interpretation Comments POC-GLUCOSE METER 209 mg/dL 70-110 H TESTED AT [facility] [address] ([facility]) (test code = [facility] [place] 1538) [address] POCT-GLUCOSE [id number] 08:53:00 Test Item Value Reference Range Interpretation Comments POC-GLUCOSE METER 103 mg/dL 70-110 TESTED AT [facility] [address] (BEAKER) (test code = [place] 1538) [address] BASIC METABOLIC [id number] 07:47:00 Test Item Value Reference Range Interpretation [...] DIALYSIS PATIEN TS. WOUND CULTURE + GRAM [id number] 07:44:00 Test Item Value Reference Range Interpretation Comments CULTURE (BEAKER) (test code No growth = 1095) GRAM STAIN RESULT (BEAKER) No WBCs (test code = 1123) GRAM STAIN RESULT (BEAKER) No organisms seen (test code = 22885) [id number] 07:38:00 Test Item Value Reference Range Interpretation Comments PHOSPHORUS (BEAKER) (test code = 3.2 mg/dL 2.3-4.7 604) CBC W/PLT COUNT & AUTO [id number] 06:35:00 Test Item Value Reference Range Interpretation [...] PERCENT (BEAKER) (test code = 2801) PROTHROMBIN [id number] 06:32:00 Test Item Value Reference Range Interpretation Comments PROTIME (BEAKER) (test code = 23.2 seconds 11.7-14.7 H 759) INR (BEAKER) (test code = 370) 2.1 <=5.9 RECOMMENDED COUMADIN/WARFARIN INR THERAPY RANGESSTANDARD DOSE: 2.0 - 3.0 Includes: PROPHYLAXIS forvenous thrombosis, systemic embolization; TREATMENT for venous thrombosis and/or pulmonary embolus.HIGH RISK: Target INR is 2.5-3.5 for patients with mechanical heart valves.POCT-GLUCOSE [id number] 21:21:00 Test Item Value Reference Range Interpretation Comments POC-GLUCOSE METER 177 mg/dL 70-110 H TESTED AT [place] [address] ([facility]) (test code = [facility] 1538) [address] POCT-GLUCOSE [id number] 17:53:00 Test Item Value Reference Range Interpretation Comments POC-GLUCOSE METER 89 mg/dL 70-110 TESTED AT [place] [address] ([facility]) (test code = [facility] [address] 1538) IRON, TIBC, % SAT. (WITHOUT FERRITIN)2018-05-22 17:45:00 Test Item Value Reference Range Interpretation Comments IRON (BEAKER) (test code = 547) 63 ug/dL 40-160 TOTAL IRON BINDING CAPACITY 203 ug/dL 250-450 L ([facility]) (test code = 769) IRON % SATURATION (2) (BEAKER) 31 % 20-55 (test code = 2590) [id number] 16:07:00 Test Item Value Reference Range Interpretation Comments PHOSPHORUS (BEAKER) (test code = 5.4 mg/dL 2.3-4.7 H 604) POCT-GLUCOSE [id number] 12:41:00 Test Item Value Reference Range Interpretation Comments POC-GLUCOSE METER 110 mg/dL 70-110 TESTED AT [place] [address] ([facility]) (test code = [facility] 1538) [address] POCT-GLUCOSE [id number] 07:00:00 Test Item Value Reference Range Interpretation Comments POC-GLUCOSE METER 159 mg/dL 70-110 H TESTED AT [place] [address] ([facility]) (test code = [facility] 1538) [address] BASIC METABOLIC [id number] 05:19:00 Test Item Value Reference Range Interpretation [...] S NOT APPLICABLE FOR DIALYSIS PATIEN TS. [id number] 05:18:00 Test Item Value Reference Range Interpretation Comments MAGNESIUM (BEAKER) (test code = 1.9 mg/dL 1.6-2.6 627) PROTHROMBIN [id number] 05:03:00 Test Item Value Reference Range Interpretation [...] PERCENT (BEAKER) (test code = 2801) POCT-GLUCOSE [id number] 23:35:00 Test Item Value Reference Range Interpretation Comments POC-GLUCOSE METER 190 mg/dL 70-110 H TESTED AT [facility] [address] ([facility]) (test code = [place] [facility] 1538) [address] POCT-GLUCOSE [id number] 17:16:00 Test Item Value Reference Range Interpretation Comments POC-GLUCOSE METER 122 mg/dL 70-110 H TESTED AT [facility] [address] ([facility]) (test code = [place] [facility] 1538) [address] U/S, TESTICULAR (SCROTUM)2018-05-21 14:53:00Reason for exam:->testicular swellingFINAL [...] lymphocele is a consideration. Signed: Reagan Carr [facility] Verified Date/Time: 05/21/2018 14:53:00 Reading Location: [address] UltrasoundReading Room POCT- GLUCOSE [id number] 11:22:00 Test Item Value Reference Range Interpretation Comments POC-GLUCOSE METER 144 mg/dL 70-110 H TESTED AT [facility] [address] (BEAKER) (test code = [place] 1538) [address] POCT-GLUCOSE [id number] 07:05:00 Test Item Value Reference Range Interpretation Comments POC-GLUCOSE METER 171 mg/dL 70-110 H TESTED AT [facility] [address] (BEAKER) (test code = [place] 1534) [address] BASIC METABOLIC [id number] 06:19:00 Test Item Value Reference Range Interpretation [...] S NOT APPLICABLE FOR DIALYSIS PATIEN TS. [id number] 06:04:00 Test Item Value Reference Range Interpretation Comments MAGNESIUM (BEAKER) (test code = 1.9 mg/dL 1.6-2.6 627) PROTHROMBIN [id number] 05:31:00 Test Item Value Reference Range Interpretation [...] PERCENT (BEAKER) (test code = 2801) POCT-GLUCOSE [id number] 21:29:00 Test Item Value Reference Range Interpretation Comments POC-GLUCOSE METER 156 mg/dL 70-110 H TESTED AT [place] [address] ([facility]) (test code = [place] [facility] 1538) [address] POCT-GLUCOSE [id number] 18:14:00 Test Item Value Reference Range Interpretation Comments POC-GLUCOSE METER 93 mg/dL 70-110 TESTED AT [place] [address] ([facility]) (test code = [place] [facility] [address] 1538) PROTHROMBIN [id number] 13:26:00 Test Item Value Reference Range Interpretation Comments PROTIME ([facility]) (test code = 42.0 seconds 11.7-14.7 H 759) INR ([facility]) (test code = 370) 4.4 <=5.9 RECOMMENDED COUMADIN/WARFARIN INR THERAPY RANGESSTANDARD DOSE: 2.0 - 3.0 Includes: PROPHYLAXIS forvenous thrombosis, systemic embolization; TREATMENT for venous thrombosis and/or pulmonary embolus.HIGH RISK: Target INR is 2.5-3.5 for patients with mechanical heart valves.LACTIC ACID, VENOUS, WHOLE [id number] 13:18:00 Test Item Value Reference Range Interpretation Comments LACTATE BLOOD VENOUS (2) ([facility]) 0.8 mmol/L 0.5-2.2 (test code = 2872) Effective 01/04/2016: Units/Reference Range ChangeNew: 0.5-2.2 mmol/L Previous: 5-20 mg/dLPOCT-GLUCOSE [id number] 12:04:00 Test Item Value Reference Range Interpretation Comments POC-GLUCOSE METER 111 mg/dL 70-110 H TESTED AT [place] [address] ([facility]) (test code = [place] [facility] 1538) [address] CD4 T CELL [id number] 12:04:00 Test Item Value Reference Range Interpretation Comments CD4/CD8 RATIO FC ([facility]) (test code = 0.76 0.70-3.23 2126) HEPATITIS B SURFACE [id number] 11:32:00 Test Item Value Reference Range Interpretation Comments HEPATITIS B SURFACE ANTIGEN (2) Nonreactive Nonreactive ([facility]) (test code = 2585) VANCOMYCIN LEVEL, [id number] 11:10:00 Test Item Value Reference Range Interpretation Comments VANCOMYCIN RANDOM (BEAKER) (test 20.7 ug/mL code = 523) Reference Range: No NormalsBASIC METABOLIC [id number] 09:19:00 Test Item Value Reference Range Interpretation [...] S NOT APPLICABLE FOR DIALYSIS PATIEN TS. [id number] 09:16:00 Test Item Value Reference Range Interpretation Comments MAGNESIUM (BEAKER) (test code = 2.1 mg/dL 1.6-2.6 627) RAD, CHEST, 1 VIEW, NON [id number] 07:56:00Reason for exam:->pleural effusion seen on outside hospital imagingShould this be performed at the bedside?->YesFINAL REPORT Chest one view compared to February 23 Discussion: Small effusions are similar. Replaced cardiac valve and atrial appendage clip noted. No pneumothorax. Unchanged cardiac pulmonary appearance. Signed: Larry Colindres Verified Date/Time: 05/20/2018 07:56:50 Reading Location: [facility] Radiology Reading Room POCT-GLUCOSE [id number] 07:32:00 Test Item Value Reference Range Interpretation Comments POC-GLUCOSE METER 105 mg/dL 70-110 TESTED AT [facility] [address] (BEAKER) (test code = [place] 1538) [address] CBC W/PLT COUNT & AUTO [id number] 07:01:00 Test Item Value Reference Range Interpretation [...] (BEAKER) (test code = 2801) VANCOMYCIN LEVEL, [id number] 22:39:00 Test Item Value Reference Range Interpretation Comments VANCOMYCIN RANDOM (BEAKER) (test 22.0 ug/mL code = 523) Reference Range: No NormalsCOMPREHENSIVE METABOLIC [id number] 22:39:00 Test Item Value Reference Range Interpretation [...] S NOT APPLICABLE FOR DIALYSIS PATIEN TS. [id number] 22:38:00 Test Item Value Reference Range Interpretation Comments PHOSPHORUS (BEAKER) (test code = 4.5 mg/dL 2.3-4.7 604) [id number] 22:38:00 Test Item Value Reference Range Interpretation Comments MAGNESIUM (BEAKER) (test code = 2.0 mg/dL 1.6-2.6 627) [id number] 22:29:00 Test Item Value Reference Range Interpretation Comments PARTIAL THROMBOPLASTIN TIME 45.0 seconds 22.5-36.0 H (BEAKER) (test code = 760) PROTHROMBIN [id number] 22:28:00 Test Item Value Reference Range Interpretation Comments PROTIME (BEAKER) (test code = 48.1 seconds 11.7-14.7 H 759) INR (BEAKER) (test code = 370) 5.2 <=5.9 RECOMMENDED COUMADIN/WARFARIN INR THERAPY RANGESSTANDARD DOSE: 2.0 - 3.0 Includes: PROPHYLAXIS forvenous thrombosis, systemic embolization; TREATMENT for venous thrombosis and/or pulmonary embolus.HIGH RISK: Target INR is 2.5-3.5 for patients with mechanical heart valves.POCT-GLUCOSE [id number] 21:38:00 Test Item Value Reference Range Interpretation Comments POC-GLUCOSE METER 105 mg/dL 70-110 TESTED AT [facility] [address] (JARROD) (test code = [place] 1538) [address] XR Ankle Complete 3+ Views [id number] 22:30:07Patient: CALEB LUGO Date/Time05/12/2018 22:24 CDTReason for [...] Signature): 05/12/2018 10:30 pmXR Chest 1 View [id number] 09:48:17Patient: CALEB LUGO Date/Time05/12/2018 09:30 CDTReason for [...] FSigned (Electronic Signature): 05/12/2018 9:48 amBASIC METABOLIC [id number] 11:15:00 Test Item Value Reference Range Interpretation [...] (BEAKER) (test code = 700) BASIC METABOLIC [id number] 02:55:00 Test Item Value Reference Range Interpretation [...] H (BEAKER) (test code = 700) TROPONIN [id number] 02:30:00 Test Item Value Reference Range Interpretation [...] failure, acidosis, acute neurological disease, and persistent tachyarrhythmia.[id number] 02:21:00 Test Item Value Reference Range Interpretation Comments MAGNESIUM (BEAKER) (test code = 1.8 mg/dL 1.6-2.6 627) CBC W/PLT COUNT & AUTO [id number] 00:24:00 Test Item Value Reference Range Interpretation [...] 0-1 PERCENT (BEAKER) (test code = 2801) [id number] 00:01:00 Test Item Value Reference Range Interpretation [...] mechanical heart valves.RAD, CHEST, 1 VIEW, NON [id number] 23:39:00Reason for exam:->chest painShould this be performed [...] MDReport Verified Date/Time: 02/23/2018 23:39:58 Reading Location: [address] Reading Room POCT-GLUCOSE [id number] 19:47:00 Test Item Value Reference Range Interpretation Comments POC-GLUCOSE METER 94 mg/dL 70-110 TESTED AT [facility] [address] ([facility]) (test code = [place] [address] 1538) POCT-GLUCOSE [id number] 17:07:00 Test Item Value Reference Range Interpretation Comments POC-GLUCOSE METER 176 mg/dL 70-110 H TESTED AT [place] [address] ([facility]) (test code = [place] [facility] 1538) [address] POCT-GLUCOSE [id number] 12:31:00 Test Item Value Reference Range Interpretation Comments POC-GLUCOSE METER 84 mg/dL 70-110 TESTED AT [place] [address] ([facility]) (test code = [facility] [place] [facility] [address] 1538) [id number] 10:40:00 Test Item Value Reference Range Interpretation Comments PARTIAL THROMBOPLASTIN TIME 88.5 seconds 22.5-36.0 H ([facility]) (test code = 760) OCCULT BLOOD, [id number] 09:36:00 Test Item Value Reference Range Interpretation Comments FECAL OCCULT BLOOD ([facility]) (test Negative Negative code = 618) POCT-GLUCOSE [id number] 08:51:00 Test Item Value Reference Range Interpretation Comments POC-GLUCOSE METER 223 mg/dL 70-110 H TESTED AT [place] [address] ([facility]) (test code = [facility] 1538) [address] [id number] 04:14:00 Test Item Value Reference Range Interpretation Comments PARTIAL THROMBOPLASTIN TIME 80.3 seconds 22.5-36.0 H ([facility]) (test code = 760) While on warfarin.PROTHROMBIN TIME/[id number] 04:13:00 Test Item Value Reference Range Interpretation Comments PROTIME ([facility]) (test code = 23.8 seconds 11.7-14.7 H 759) INR ([facility]) (test code = 370) 2.1 <=5.9 RECOMMENDED COUMADIN/WARFARIN INR THERAPY RANGESSTANDARD DOSE: 2.0 - 3.0 Includes: PROPHYLAXIS forvenous thrombosis, systemic embolization; TREATMENT for venous thrombosis and/or pulmonary embolus.HIGH RISK: Target INR is 2.5-3.5 for patients with mechanical heart valves.While on warfarin.POCT-GLUCOSE METER 2018-02-02 21:56:00 Test Item Value Reference Range Interpretation Comments POC-GLUCOSE METER 206 mg/dL 70-110 H TESTED AT [place] [address] ([facility]) (test code = [facility] 1538) [address] [id number] 19:50:00 Test Item Value Reference Range Interpretation Comments PARTIAL THROMBOPLASTIN TIME 59.7 seconds 22.5-36.0 H (BEAKER) (test code = 760) POCT-GLUCOSE [id number] 17:00:00 Test Item Value Reference Range Interpretation Comments POC-GLUCOSE METER 183 mg/dL 70-110 H TESTED AT [facility] [address] (BEAKER) (test code = [place] 1538) [address] [id number] 12:45:00 Test Item Value Reference Range Interpretation Comments PARTIAL THROMBOPLASTIN TIME 89.5 seconds 22.5-36.0 H (BEAKER) (test code = 760) CBC W/PLT COUNT & AUTO [id number] 12:04:00 Test Item Value Reference Range Interpretation [...] WBC 0-0 (test code = 413) POCT-GLUCOSE [id number] 11:54:00 Test Item Value Reference Range Interpretation Comments POC-GLUCOSE METER 124 mg/dL 70-110 H TESTED AT [facility] [address] (BEAKER) (test code = [place] 1538) [address] POCT-GLUCOSE [id number] 07:48:00 Test Item Value Reference Range Interpretation Comments POC-GLUCOSE METER 178 mg/dL 70-110 H TESTED AT [facility] [address] (BEAKER) (test code = [place] 1538) [address] BASIC METABOLIC [id number] 05:15:00 Test Item Value Reference Range Interpretation [...] S NOT APPLICABLE FOR DIALYSIS PATIEN TS. [id number] 04:51:00 Test Item Value Reference Range Interpretation Comments MAGNESIUM (BEAKER) (test code = 1.8 mg/dL 1.6-2.6 627) [id number] 04:36:00 Test Item Value Reference Range Interpretation Comments PARTIAL THROMBOPLASTIN TIME 91.9 seconds 22.5-36.0 H (BEAKER) (test code = 760) While on warfarin.PROTHROMBIN TIME/[id number] 04:34:00 Test Item Value Reference Range Interpretation [...] METER 126 mg/dL 70-110 H TESTED AT [place] [address] ([facility]) (test code = [place] [facility] 1538) [address] [id number] 21:23:00 Test Item Value Reference Range Interpretation Comments PARTIAL THROMBOPLASTIN TIME 84.1 seconds 22.5-36.0 H ([facility]) (test code = 760) POCT-GLUCOSE [id number] 16:57:00 Test Item Value Reference Range Interpretation Comments POC-GLUCOSE METER 156 mg/dL 70-110 H TESTED AT [place] [address] ([facility]) (test code = [place] [facility] 1538) [address] [id number] 14:11:00 Test Item Value Reference Range Interpretation Comments PARTIAL THROMBOPLASTIN TIME 96.5 seconds 22.5-36.0 H ([facility]) (test code = 760) POCT-GLUCOSE [id number] 08:24:00 Test Item Value Reference Range Interpretation Comments POC-GLUCOSE METER 169 mg/dL 70-110 H TESTED AT [place] [address] ([facility]) (test code = [place] [facility] 1538) [address] POCT-GLUCOSE [id number] 06:49:00 Test Item Value Reference Range Interpretation Comments POC-GLUCOSE METER 172 mg/dL 70-110 H TESTED AT [place] [address] ([facility]) (test code = [place] [facility] 1538) [address] [id number] 04:59:00 Test Item Value Reference Range Interpretation Comments PARTIAL THROMBOPLASTIN TIME 64.7 seconds 22.5-36.0 H ([facility]) (test code = 760) While on warfarin.PROTHROMBIN TIME/[id number] 04:57:00 Test Item Value Reference Range Interpretation Comments PROTIME ([facility]) (test code = 17.5 seconds 11.7-14.7 H 759) INR ([facility]) (test code = 370) 1.4 <=5.9 RECOMMENDED COUMADIN/WARFARIN INR THERAPY RANGESSTANDARD DOSE: 2.0 - 3.0 Includes: PROPHYLAXIS forvenous thrombosis, systemic embolization; TREATMENT for venous thrombosis and/or pulmonary embolus.HIGH RISK: Target INR is 2.5-3.5 for patients with mechanical heart valves.While on warfarin.[id number] 21:55:00 Test Item Value Reference Range Interpretation Comments PARTIAL THROMBOPLASTIN TIME 68.8 seconds 22.5-36.0 H ([facility]) (test code = 760) [id number] 13:54:00 Test Item Value Reference Range Interpretation Comments PARTIAL THROMBOPLASTIN TIME 51.7 seconds 22.5-36.0 H ([facility]) (test code = 760) POCT-GLUCOSE [id number] 11:56:00 Test Item Value Reference Range Interpretation Comments POC-GLUCOSE METER 101 mg/dL 70-110 TESTED AT [place] [address] ([facility]) (test code = [place] 1538) [address] POCT-GLUCOSE [id number] 07:58:00 Test Item Value Reference Range Interpretation Comments POC-GLUCOSE METER 111 mg/dL 70-110 H TESTED AT [place] [address] ([facility]) (test code = [place] [facility] 1538) [address] BASIC METABOLIC [id number] 05:35:00 Test Item Value Reference Range Interpretation [...] S NOT APPLICABLE FOR DIALYSIS PATIEN TS. [id number] 05:34:00 Test Item Value Reference Range Interpretation Comments PHOSPHORUS (BEAKER) (test code = 4.2 mg/dL 2.3-4.7 604) [id number] 05:34:00 Test Item Value Reference Range Interpretation Comments MAGNESIUM (BEAKER) (test code = 1.7 mg/dL 1.6-2.6 627) PROTHROMBIN [id number] 05:24:00 Test Item Value Reference Range Interpretation Comments PROTIME (BEAKER) (test code = 18.8 seconds 11.7-14.7 H 759) INR (BEAKER) (test code = 370) 1.6 <=5.9 RECOMMENDED COUMADIN/WARFARIN INR THERAPY RANGESSTANDARD DOSE: 2.0 - 3.0 Includes: PROPHYLAXIS forvenous thrombosis, systemic embolization; TREATMENT for venous thrombosis and/or pulmonary embolus.HIGH RISK: Target INR is 2.5-3.5 for patients with mechanical heart valves.[id number] 05:05:00 Test Item Value Reference Range Interpretation Comments PARTIAL THROMBOPLASTIN TIME 96.6 seconds 22.5-36.0 H (BEAKER) (test code = 760) CBC W/PLT COUNT & AUTO [id number] 04:54:00 Test Item Value Reference Range Interpretation [...] (BEAKER) (test code = 2801) OCCULT BLOOD, [id number] 22:44:00 Test Item Value Reference Range Interpretation Comments FECAL OCCULT BLOOD (BEAKER) (test Positive Negative A code = 618) [id number] 21:14:00 Test Item Value Reference Range Interpretation Comments PARTIAL THROMBOPLASTIN TIME 69.1 seconds 22.5-36.0 H (BEAKER) (test code = 760) POCT-GLUCOSE [id number] 20:49:00 Test Item Value Reference Range Interpretation Comments POC-GLUCOSE METER 160 mg/dL 70-110 H TESTED AT [facility] (BEAKER) (test code = [place] 1538) [address] POCT-GLUCOSE [id number] 17:59:00 Test Item Value Reference Range Interpretation Comments POC-GLUCOSE METER 128 mg/dL 70-110 H TESTED AT [facility] 67 (BEAKER) (test code = [place] 1538) [address] POCT-GLUCOSE [id number] 13:31:00 Test Item Value Reference Range Interpretation Comments POC-GLUCOSE METER 70 mg/dL 70-110 TESTED AT [place] [address] (BEAKER) (test code = [place] [address] 1538) [id number] 13:16:00 Test Item Value Reference Range Interpretation Comments PARTIAL THROMBOPLASTIN TIME 78.3 seconds 22.5-36.0 H (BEAKER) (test code = 760) POCT-GLUCOSE [id number] 12:47:00 Test Item Value Reference Range Interpretation Comments POC-GLUCOSE METER 49 mg/dL 70-110 L TESTED AT [place] [address] (BEAKER) (test code = [place] [address] 1538) POCT-GLUCOSE [id number] 09:05:00 Test Item Value Reference Range Interpretation Comments POC-GLUCOSE METER 306 mg/dL 70-110 H TESTED AT [place] [address] (BEAKER) (test code = [place] 1538) [address] OCCULT BLOOD, [id number] 06:52:00 Test Item Value Reference Range Interpretation Comments FECAL OCCULT BLOOD (BEAKER) (test Positive Negative A code = 618) [id number] 05:42:00 Test Item Value Reference Range Interpretation [...] 20-55 (test code = 2590) BASIC METABOLIC [id number] 03:53:00 Test Item Value Reference Range Interpretation [...] S NOT APPLICABLE FOR DIALYSIS PATIEN TS. [id number] 03:51:00 Test Item Value Reference Range Interpretation Comments PHOSPHORUS (BEAKER) (test code = 3.2 mg/dL 2.3-4.7 604) [id number] 03:51:00 Test Item Value Reference Range Interpretation Comments PARTIAL THROMBOPLASTIN TIME 122.0 seconds 22.5-36.0 H (BEAKER) (test code = 760) While on warfarin.PROTHROMBIN TIME/[id number] 03:48:00 Test Item Value Reference Range Interpretation Comments PROTIME (BEAKER) (test code = 16.3 seconds 11.7-14.7 H 759) INR (BEAKER) (test code = 370) 1.3 <=5.9 RECOMMENDED COUMADIN/WARFARIN INR THERAPY RANGESSTANDARD DOSE: 2.0 - 3.0 Includes: PROPHYLAXIS forvenous thrombosis, systemic embolization; TREATMENT for venous thrombosis and/or pulmonary embolus.HIGH RISK: Target INR is 2.5-3.5 for patients with mechanical heart valves.While on warfarin.[id number] 03:44:00 Test Item Value Reference Range Interpretation Comments MAGNESIUM (BEAKER) (test code = 1.7 mg/dL 1.6-2.6 627) CBC W/PLT COUNT & AUTO [id number] 03:38:00 Test Item Value Reference Range Interpretation [...] PERCENT (BEAKER) (test code = 2801) POCT-GLUCOSE [id number] 23:35:00 Test Item Value Reference Range Interpretation Comments POC-GLUCOSE METER 149 mg/dL 70-110 H TESTED AT [facility] [address] ([facility]) (test code = [place] 1538) [address] [id number] 20:08:00 Test Item Value Reference Range Interpretation Comments PARTIAL THROMBOPLASTIN TIME 55.6 seconds 22.5-36.0 H ([facility]) (test code = 760) [id number] 15:10:00 Test Item Value Reference Range Interpretation Comments PARTIAL THROMBOPLASTIN TIME 81.4 seconds 22.5-36.0 H ([facility]) (test code = 760) POCT-GLUCOSE [id number] 11:58:00 Test Item Value Reference Range Interpretation Comments POC-GLUCOSE METER 124 mg/dL 70-110 H TESTED AT [facility] ([facility]) (test code = [place]OSTER Paul [facility] 1538) [address] RAD, CHEST, 1 VIEW, NON [id number] 08:59:00Reason for exam:->s/p mvrShould this be performed at the bedside?->YesFINAL REPORT Chest one view compared to January 24 Discussion: Left IJ line, atrial appendage clip, cardiac valve replacement noted. Mild interstitial congestion. No gross effusion or pneumothorax. IMPRESSIONS: No significant change Signed: Larry Colindres Verified Date/Time:01/29/2018 08:59:39 Reading Location: [facility] Radiology Reading Room POCT-GLUCOSE [id number] 07:41:00 Test Item Value Reference Range Interpretation Comments POC-GLUCOSE METER 113 mg/dL 70-110 H TESTED AT [facility] 6720 ([facility]) (test code = FOSTER Paul [facility] 1538) [address] [id number] 07:23:00 Test Item Value Reference Range Interpretation Comments PARTIAL THROMBOPLASTIN TIME 89.8 seconds 22.5-36.0 H ([facility]) (test code = 760) BASIC METABOLIC [id number] 06:05:00 Test Item Value Reference Range Interpretation [...] NOT APPLICABLE FOR DIALYSIS PATIEN TS. PROTHROMBIN TIME/[id number] 05:59:00 Test Item Value Reference Range Interpretation Comments PROTIME (BEAKER) (test code = 17.0 seconds 11.7-14.7 H 759) INR (BEAKER) (test code = 370) 1.4 <=5.9 RECOMMENDED COUMADIN/WARFARIN INR THERAPY RANGESSTANDARD DOSE: 2.0 - 3.0 Includes: PROPHYLAXIS forvenous thrombosis, systemic embolization; TREATMENT for venous thrombosis and/or pulmonary embolus.HIGH RISK: Target INR is 2.5-3.5 for patients with mechanical heart valves.While on warfarin.[id number] 05:56:00 Test Item Value Reference Range Interpretation Comments PHOSPHORUS (BEAKER) (test code = 5.3 mg/dL 2.3-4.7 H 604) [id number] 05:56:00 Test Item Value Reference Range Interpretation Comments MAGNESIUM (BEAKER) (test code = 1.9 mg/dL 1.6-2.6 627) CBC W/PLT COUNT & AUTO [id number] 05:38:00 Test Item Value Reference Range Interpretation [...] 0-1 PERCENT (BEAKER) (test code = 2801) [id number] 01:07:00 Test Item Value Reference Range Interpretation Comments PARTIAL THROMBOPLASTIN TIME 63.5 seconds 22.5-36.0 H (BEAKER) (test code = 760) [id number] 18:24:00 Test Item Value Reference Range Interpretation Comments PARTIAL THROMBOPLASTIN TIME 56.6 seconds 22.5-36.0 H (BEAKER) (test code = 760) POCT-GLUCOSE [id number] 18:14:00 Test Item Value Reference Range Interpretation Comments POC-GLUCOSE METER 101 mg/dL 70-110 TESTED AT [facility] 67[address] (BEAKER) (test code = FOSTER Paul [facility] 1538) [address] [id number] 13:57:00 Test Item Value Reference Range Interpretation Comments PARTIAL THROMBOPLASTIN TIME 122.3 seconds 22.5-36.0 H (BEAKER) (test code = 760) POCT-GLUCOSE [id number] 13:08:00 Test Item Value Reference Range Interpretation Comments POC-GLUCOSE METER 105 mg/dL 70-110 TESTED AT [place] [address] ([facility]) (test code = FOSTER Paul [facility] 1538) [address] BASIC METABOLIC [id number] 04:31:00 Test Item Value Reference Range Interpretation [...] S NOT APPLICABLE FOR DIALYSIS PATIEN TS. [id number] 04:28:00 Test Item Value Reference Range Interpretation Comments PHOSPHORUS (BEAKER) (test code = 3.9 mg/dL 2.3-4.7 604) [id number] 04:28:00 Test Item Value Reference Range Interpretation Comments MAGNESIUM (BEAKER) (test code = 1.7 mg/dL 1.6-2.6 627) HEPATIC FUNCTION [id number] 04:28:00 Test Item Value Reference Range Interpretation [...] (test code = 33 U/L 6-55 347) [id number] 04:20:00 Test Item Value Reference Range Interpretation Comments PARTIAL THROMBOPLASTIN TIME 106.2 seconds 22.5-36.0 H (BEAKER) (test code = 760) While on warfarin.PROTHROMBIN TIME/[id number] 04:15:00 Test Item Value Reference Range Interpretation [...] valves.While on warfarin.CBC W/PLT COUNT & AUTO [id number] 04:05:00 Test Item Value Reference Range Interpretation [...] 0-1 H PERCENT (BEAKER) (test code = 280) POCT-GLUCOSE [id number] 00:29:00 Test Item Value Reference Range Interpretation Comments POC-GLUCOSE METER 119 mg/dL 70-110 H TESTED AT [place] [address] ([facility]) (test code = [place] 1538) [address] [id number] 00:24:00 Test Item Value Reference Range Interpretation Comments PARTIAL THROMBOPLASTIN TIME 72.4 seconds 22.5-36.0 H ([facility]) (test code = 760) POCT-GLUCOSE [id number] 18:33:00 Test Item Value Reference Range Interpretation Comments POC-GLUCOSE METER 158 mg/dL 70-110 H TESTED AT [place] [address] ([facility]) (test code = [place] 1538) [address] [id number] 18:22:00 Test Item Value Reference Range Interpretation Comments PARTIAL THROMBOPLASTIN TIME 78.6 seconds 22.5-36.0 H ([facility]) (test code = 760) POCT-GLUCOSE [id number] 12:20:00 Test Item Value Reference Range Interpretation Comments POC-GLUCOSE METER 110 mg/dL 70-110 TESTED AT [place] [address] ([facility]) (test code = [place] 1538) [address] [id number] 12:04:00 Test Item Value Reference Range Interpretation Comments PARTIAL THROMBOPLASTIN TIME 98.0 seconds 22.5-36.0 H ([facility]) (test code = 760) [id number] 04:11:00 Test Item Value Reference Range Interpretation Comments PROTIME ([facility]) (test code = 15.2 seconds 11.7-14.7 H 759) INR ([facility]) (test code = 370) 1.2 <=5.9 PARTIAL THROMBOPLASTIN TIME 67.9 seconds 22.5-36.0 H ([facility]) (test code = 760) RECOMMENDED COUMADIN/WARFARIN INR THERAPY RANGESSTANDARD DOSE: 2.0 - 3.0 Includes: PROPHYLAXIS forvenous thrombosis, systemic embolization; TREATMENT for venous thrombosis and/or pulmonary embolus.HIGH RISK: Target INR is 2.5-3.5 for patients with mechanical heart valves.While on warfarin.While on warfarin. PROTHROMBIN TIME/[id number] 04:10:00 Test Item Value Reference Range Interpretation Comments PROTIME (BEAKER) (test code = 15.2 seconds 11.7-14.7 H 759) INR (BEAKER) (test code = 370) 1.2 <=5.9 RECOMMENDED COUMADIN/WARFARIN INR THERAPY RANGESSTANDARD DOSE: 2.0 - 3.0 Includes: PROPHYLAXIS forvenous thrombosis, systemic embolization; TREATMENT for venous thrombosis and/or pulmonary embolus.HIGH RISK: Target INR is 2.5-3.5 for patients with mechanical heart valves.BASIC METABOLIC [id number] 03:53:00 Test Item Value Reference Range Interpretation [...] PATIEN TS. CBC W/PLT COUNT & AUTO [id number] 03:50:00 Test Item Value Reference Range Interpretation [...] H PERCENT (BEAKER) (test code = 2801) [id number] 03:45:00 Test Item Value Reference Range Interpretation Comments PHOSPHORUS (BEAKER) (test code = 4.7 mg/dL 2.3-4.7 604) [id number] 03:45:00 Test Item Value Reference Range Interpretation Comments MAGNESIUM (BEAKER) (test code = 2.0 mg/dL 1.6-2.6 627) HEPATIC FUNCTION [id number] 03:45:00 Test Item Value Reference Range Interpretation [...] (test code = 36 U/L 6-55 347) [id number] 22:16:00 Test Item Value Reference Range Interpretation Comments PARTIAL THROMBOPLASTIN TIME 60.7 seconds 22.5-36.0 H (BEAKER) (test code = 760) POCT-GLUCOSE [id number] 18:32:00 Test Item Value Reference Range Interpretation Comments POC-GLUCOSE METER 125 mg/dL 70-110 H TESTED AT [facility] 67[address] (BEAKER) (test code = [place] 1538) [address] CBC (HEMOGRAM ONLY)2018-01-26 17:21:00 Test Item Value [...] (BEAKER) (test code = 413) BASIC METABOLIC [id number] 07:16:00 Test Item Value Reference Range Interpretation [...] S NOT APPLICABLE FOR DIALYSIS PATIEN TS. [id number] 07:13:00 Test Item Value Reference Range Interpretation Comments PHOSPHORUS (BEAKER) (test code = 4.3 mg/dL 2.3-4.7 604) [id number] 07:13:00 Test Item Value Reference Range Interpretation Comments MAGNESIUM (BEAKER) (test code = 2.0 mg/dL 1.6-2.6 627) HEPATIC FUNCTION [id number] 07:13:00 Test Item Value Reference Range Interpretation [...] (test code = 37 U/L 6-55 347) [id number] 07:12:00 Test Item Value Reference Range Interpretation [...] PERCENT (BEAKER) (test code = 2801) BLOOD [id number] 00:00:00 Test Item Value Reference Range Interpretation Comments CULTURE (BEAKER) (test No growth in 5 days code = 1095) BLOOD [id number] 00:00:00 Test Item Value Reference Range Interpretation Comments CULTURE (BEAKER) (test No growth in 5 days code = 1095) POCT-GLUCOSE [id number] 23:37:00 Test Item Value Reference Range Interpretation Comments POC-GLUCOSE METER 87 mg/dL 70-110 TESTED AT [facility] 67[address] (BEAKER) (test code = [place] [address] 1538) [id number] 23:06:00 Test Item Value Reference Range Interpretation Comments PARTIAL THROMBOPLASTIN TIME 81.8 seconds 22.5-36.0 H (BEAKER) (test code = 760) POCT-GLUCOSE [id number] 20:42:00 Test Item Value Reference Range Interpretation Comments POC-GLUCOSE METER 193 mg/dL 70-110 H TESTED AT [facility] 6720 (BEAKER) (test code = [place]ER Paul [place] 1538) [address] HEMOGLOBIN AND [id number] 17:40:00 Test Item Value Reference Range Interpretation Comments HEMOGLOBIN (BEAKER) (test code = 8.4 GM/DL 13.7-17.5 L 410) HEMATOCRIT (BEAKER) (test code = 25.4 % 40.1-51.0 L 411) [id number] 13:06:00 Test Item Value Reference Range Interpretation Comments PARTIAL THROMBOPLASTIN TIME 61.4 seconds 22.5-36.0 H (BEAKER) (test code = 760) POCT-GLUCOSE [id number] 12:56:00 Test Item Value Reference Range Interpretation Comments POC-GLUCOSE METER 116 mg/dL 70-110 H TESTED AT [facility] 67[address] (BEAKER) (test code = FOSTER Paul [place] 1538) [address] [id number] 06:43:00 Test Item Value Reference Range Interpretation [...] 37 % 20-55 (test code = 2590) [id number] 05:32:00 Test Item Value Reference Range Interpretation Comments PARTIAL THROMBOPLASTIN TIME 63.7 seconds 22.5-36.0 H (BEAKER) (test code = 760) BASIC METABOLIC [id number] 05:03:00 Test Item Value Reference Range Interpretation [...] APPLICABLE FOR DIALYSIS PATIEN TS. HEPATIC FUNCTION [id number] 05:00:00 Test Item Value Reference Range Interpretation [...] (test code = 41 U/L 6-55 347) [id number] 04:40:00 Test Item Value Reference Range Interpretation [...] 0-0 (BEAKER) (test code = 413) POCT-GLUCOSE [id number] 00:30:00 Test Item Value Reference Range Interpretation Comments POC-GLUCOSE METER 112 mg/dL 70-110 H TESTED AT [facility] 6720 (BEAKER) (test code = [place]ER [place] 6445) [address] CBC W/PLT COUNT & AUTO [id number] 19:16:00 Test Item Value Reference Range Interpretation [...] PERCENT (BEAKER) (test code = 280) POCT-GLUCOSE [id number] 18:27:00 Test Item Value Reference Range Interpretation Comments POC-GLUCOSE METER 102 mg/dL 70-110 TESTED AT [facility] 67 ([facility]) (test code = [place]ER [place] 1538) [address] POCT-GLUCOSE [id number] 13:01:00 Test Item Value Reference Range Interpretation Comments POC-GLUCOSE METER 119 mg/dL 70-110 H TESTED AT [place] [id number] (BEAKER) (test code = FOSTER Paul [facility] 1538) [address] RAD, CHEST, 1 VIEW, NON [id number] 10:59:00Reason for exam:->ptxShould this be performed at [...] Mild increase in pulmonary opacities. Signed: Jori Mejia Verified Date/Time: 01/24/2018 10:59:29 Reading Location: [facility] Diagnostic Imaging Reading Room - [place] [address] BRONCHIAL CULTURE + GRAM STAIN 2018-01-24 08:53:00 Test Item Value Reference Range Interpretation Comments CULTURE (BEAKER) 2+ Normal respiratory (test code = 1095) pete present GRAM STAIN RESULT 4+ White blood cells (BEAKER) (test code = seen 1123) GRAM STAIN RESULT No organisms seen (BEAKER) (test code = 25887) POCT-GLUCOSE [id number] 06:28:00 Test Item Value Reference Range Interpretation Comments POC-GLUCOSE METER 119 mg/dL 70-110 H TESTED AT [place] [address] (BEAKER) (test code = FOSTER Paul [facility] 1538) [address] BASIC METABOLIC [id number] 04:41:00 Test Item Value Reference Range Interpretation [...] WBC 0-0 (BEAKER) (test code = 413) [id number] 04:21:00 Test Item Value Reference Range Interpretation Comments MAGNESIUM (BEAKER) (test code = 2.0 mg/dL 1.6-2.6 627) HEPATIC FUNCTION [id number] 04:21:00 Test Item Value Reference Range Interpretation [...] = 36 U/L 6-55 347) Specimen slightly [id number] 04:13:00 Test Item Value Reference Range Interpretation Comments PARTIAL THROMBOPLASTIN TIME 72.1 seconds 22.5-36.0 H (BEAKER) (test code = 760) BLOOD GAS, [id number] 04:13:00 Test Item Value Reference Range Interpretation [...] (test code = 1819) 100.0 % POCT-GLUCOSE [id number] 00:08:00 Test Item Value Reference Range Interpretation Comments POC-GLUCOSE METER 150 mg/dL 70-110 H TESTED AT [facility] 6720 (BEAKER) (test code = [place] 1538) [address] POCT-GLUCOSE [id number] 18:45:00 Test Item Value Reference Range Interpretation Comments POC-GLUCOSE METER 162 mg/dL 70-110 H TESTED AT [place] [address] (BEAKER) (test code = FOSTER Paul [place] 1538) [address] POCT-GLUCOSE [id number] 13:14:00 Test Item Value Reference Range Interpretation Comments POC-GLUCOSE METER 176 mg/dL 70-110 H TESTED AT [facility] 6720 (BEAKER) (test code = FOSTER Paul [place] 1538) [address] POCT-GLUCOSE [id number] 10:44:00 Test Item Value Reference Range Interpretation Comments POC-GLUCOSE METER 146 mg/dL 70-110 H TESTED AT [facility] 67 (BEAKER) (test code = FOSTER Paul [place] 1538) [address] BLOOD GAS, [id number] 10:32:00 Test Item Value Reference Range Interpretation [...] 40.0 % RAD, CHEST, 1 VIEW, NON [id number] 09:14:00Reason for exam:->ptxShould this be performed at [...] MDReport Verified Date/Time: 01/23/2018 09:14:48 Reading Location: [facility] Radiology Reading Room Electronically sign ed by: KYLE ROME M.D. on 01/23/2018 09:14 AMBLOOD [id number] 08:09:00 Test Item Value Reference Range Interpretation Comments CULTURE (BEAKER) A From Aerobi c Bottle (test code = Only Lactobacil park 1095) species GRAM STAIN From aerobic RESULT (BEAKER) bottle only: gram (test code = positive rods 1123) NOT DETECTEDPanel is negative for Narrative Science[employer] BCID-detectable organisms. Please refer to traditional culture and sensitivity results as they become available.Other organisms and resistance markers not contained in this PCR panel cannot be excluded and follow-up of traditional culture results is required.This sample was tested at the [facility] using the [employer] Blood Culture ID Panel. This test is FDA cleared for in vitro diagnostic use and has been verified and approved by the [facility] laboratory for clinical use. Reference Range: Not DetectedBLOOD GAS, [id number] 04:45:00 Test Item Value Reference Range Interpretation [...] code = 1819) 40.0 % BASIC METABOLIC [id number] 04:39:00 Test Item Value Reference Range Interpretation [...] APPLICABLE FOR DIALYSIS PATIEN TS. Specimen slightly [id number] 04:35:00 Test Item Value Reference Range Interpretation Comments MAGNESIUM (BEAKER) (test code = 1.8 mg/dL 1.6-2.6 627) HEPATIC FUNCTION [id number] 04:35:00 Test Item Value Reference Range Interpretation [...] = 40 U/L 6-55 347) Specimen slightly [id number] 04:18:00 Test Item Value Reference Range Interpretation [...] WBC 0-0 (test code = 413) POCT-GLUCOSE [id number] 00:52:00 Test Item Value Reference Range Interpretation Comments POC-GLUCOSE METER 145 mg/dL 70-110 H TESTED AT [place] [address] ([facility]) (test code = FOSTER Paul [facility] 1538) [address] BLOOD [id number] 00:00:00 Test Item Value Reference Range Interpretation Comments CULTURE ([facility]) (test No growth in 5 days code = 1095) POCT-GLUCOSE [id number] 18:17:00 Test Item Value Reference Range Interpretation Comments POC-GLUCOSE METER 97 mg/dL 70-110 TESTED AT [place] [address] ([facility]) (test code = FOSTER Paul [facility] [address] 1538) POCT-GLUCOSE [id number] 13:26:00 Test Item Value Reference Range Interpretation Comments POC-GLUCOSE METER 138 mg/dL 70-110 H TESTED AT [place] [address] ([facility]) (test code = FOSTER Paul [facility] 1538) [address] BLOOD GAS, [id number] 10:32:00 Test Item Value Reference Range Interpretation [...] (test code = 1819) 40.0 % POCT-GLUCOSE [id number] 06:21:00 Test Item Value Reference Range Interpretation Comments POC-GLUCOSE METER 138 mg/dL 70-110 H TESTED AT [facility] 6720 (BEAKER) (test code = [place] 1538) [address] BASIC METABOLIC [id number] 04:25:00 Test Item Value Reference Range Interpretation [...] APPLICABLE FOR DIALYSIS PATIEN TS. Specimen slightly [id number] 04:24:00 Test Item Value Reference Range Interpretation Comments MAGNESIUM (BEAKER) (test code = 2.1 mg/dL 1.6-2.6 627) HEPATIC FUNCTION [id number] 04:24:00 Test Item Value Reference Range Interpretation [...] /100 WBC 0-0 (test code = 413) [id number] 04:07:00 Test Item Value Reference Range Interpretation Comments PARTIAL THROMBOPLASTIN TIME 80.2 seconds 22.5-36.0 H (BEAKER) (test code = 760) BLOOD GAS, [id number] 04:06:00 Test Item Value Reference Range Interpretation [...] 40.0 % RAD, CHEST, 1 VIEW, NON [id number] 03:32:00Reason for exam:->ptxShould this be performed at [...] MDReport Verified Date/Time: 01/22/2018 03:32:38 Reading Location: [facility] B1 C013Y CT Body Reading Room POCT-GLUCOSE [id number] 00:43:00 Test Item Value Reference Range Interpretation Comments POC-GLUCOSE METER 102 mg/dL 70-110 TESTED AT [facility] 6720 (BEAKER) (test code = [place] 1538) [address] [id number] 17:31:00 Test Item Value Reference Range Interpretation Comments PARTIAL THROMBOPLASTIN TIME 65.0 seconds 22.5-36.0 H (BEAKER) (test code = 760) POCT-GLUCOSE [id number] 17:24:00 Test Item Value Reference Range Interpretation Comments POC-GLUCOSE METER 171 mg/dL 70-110 H TESTED AT [place] [address] ([facility]) (test code = [place] 1538) [address] POCT-GLUCOSE [id number] 13:01:00 Test Item Value Reference Range Interpretation Comments POC-GLUCOSE METER 144 mg/dL 70-110 H TESTED AT [place] [address] ([facility]) (test code = FOSTER Paul [facility] 1538) [address] [id number] 11:12:00 Test Item Value Reference Range Interpretation Comments PARTIAL THROMBOPLASTIN TIME 67.9 seconds 22.5-36.0 H ([facility]) (test code = 760) RAD, CHEST, 1 VIEW, NON [id number] 08:01:00Reason for exam:->ptxShould this be performed at [...] pleural effusion is present. Signed: Dung Granda [facility] Verified Date/Time: 01/21/2018 08:01:07 Reading Location: [facility] Radiology Reading Room POCT-GLUCOSE [id number] 06:50:00 Test Item Value Reference Range Interpretation Comments POC-GLUCOSE METER 149 mg/dL 70-110 H TESTED AT [facility] 67[address] ([facility]) (test code = FOSTER Paul [facility] 1538) [address] CBC (HEMOGRAM ONLY)2018-01-21 04:20:00 Test Item Value [...] /100 WBC 0-0 (test code = 413) [id number] 04:03:00 Test Item Value Reference Range Interpretation Comments PARTIAL THROMBOPLASTIN TIME 51.2 seconds 22.5-36.0 H (BEAKER) (test code = 760) BASIC METABOLIC [id number] 04:01:00 Test Item Value Reference Range Interpretation [...] APPLICABLE FOR DIALYSIS PATIEN TS. Specimen moderately [id number] 03:59:00 Test Item Value Reference Range Interpretation Comments MAGNESIUM (BEAKER) (test code = 2.0 mg/dL 1.6-2.6 627) HEPATIC FUNCTION [id number] 03:59:00 Test Item Value Reference Range Interpretation [...] U/L 6-55 347) Specimen moderately ictericVANCOMYCIN LEVEL, [id number] 03:57:00 Test Item Value Reference Range Interpretation Comments VANCOMYCIN RANDOM (BEAKER) (test 18.3 ug/mL code = 523) Reference Range: No NormalsOXYGEN SATURATION, [id number] 03:32:00 Test Item Value Reference Range Interpretation Comments O2 SATURATION (MEASURED) (BEAKER) 86.3 % (test code = 1455) BLOOD GAS, [id number] 03:30:00 Test Item Value Reference Range Interpretation [...] H (test code = 387) PATIENT TEMPERATURE ([facility]) (test 37.5 C code = 1818) FIO2 (BEAKER) (test code = 1819) 40.0 % POCT-GLUCOSE [id number] 23:43:00 Test Item Value Reference Range Interpretation Comments POC-GLUCOSE METER 143 mg/dL 70-110 H TESTED AT [place] [address] ([facility]) (test code = FOSTER Paul [place] 1538) [address] BLOOD [id number] 18:00:00 Test Item Value Reference Range Interpretation Comments CULTURE (BEAKER) (test No growth in 5 days code = 1095) BLOOD [id number] 18:00:00 Test Item Value Reference Range Interpretation Comments CULTURE (BEAKER) (test No growth in 5 days code = 1095) POCT-GLUCOSE [id number] 16:32:00 Test Item Value Reference Range Interpretation Comments POC-GLUCOSE METER 185 mg/dL 70-110 H TESTED AT [place] [address] ([facility]) (test code = FOSTER Paul [place] 1538) [address] MISCELLANEOUS LAB [id number] 15:04:00 Test Item Value Reference Range Interpretation Comments SCAN RESULT (test code = 1264433) Result comments: NOT DETECTED Panel is negative for Bio[employer] BCID-detectable organisms. Please refer to traditional culture and sensitivity results as they become available. Other organisms and resistance markers not contained in this PCR panel cannot be excluded and follow-up of traditional culture results is required. This sample was tested at the [facility] using the [employer] Blood Culture ID Panel. This test is FDA cleared for in vitro diagnostic use and hasbeen verified and approved by the [facility] laboratory for clinical use. ReferenceRange: Not DetectedPOCT- GLUCOSE [id number] 12:25:00 Test Item Value Reference Range Interpretation Comments POC-GLUCOSE METER 116 mg/dL 70-110 H TESTED AT [place] [address] ([facility]) (test code = [place] 1538) [address] RAD, CHEST, 1 VIEW, NON [id number] 06:38:00Reason for exam:->pl effusionShould this be performed [...] MDReport Verified Date/Time: 01/20/2018 06:38:33 Reading Location: [facility] C013Y CT Body Reading Room POCT-GLUCOSE [id number] 05:54:00 Test Item Value Reference Range Interpretation Comments POC-GLUCOSE METER 231 mg/dL 70-110 H TESTED AT [facility] 6720 ([facility]) (test code = [place] 1538) [address] VANCOMYCIN LEVEL, [id number] 04:23:00 Test Item Value Reference Range Interpretation Comments VANCOMYCIN RANDOM (BEAKER) (test 25.8 ug/mL code = 523) Reference Range: No [id number] 04:17:00 Test Item Value Reference Range Interpretation Comments MAGNESIUM (BEAKER) (test code = 2.0 mg/dL 1.6-2.6 627) HEPATIC FUNCTION [id number] 04:17:00 Test Item Value Reference Range Interpretation [...] 6-55 H 347) Specimen moderately ictericBASIC METABOLIC [id number] 04:17:00 Test Item Value Reference Range Interpretation [...] APPLICABLE FOR DIALYSIS PATIEN TS. Specimen moderately [id number] 04:05:00 Test Item Value Reference Range Interpretation Comments PARTIAL THROMBOPLASTIN TIME 69.7 seconds 22.5-36.0 H (BEAKER) (test code = 760) CBC W/PLT COUNT & AUTO [id number] 03:49:00 Test Item Value Reference Range Interpretation [...] 0-1 H PERCENT (BEAKER) (test code = 280) OXYGEN SATURATION, [id number] 03:48:00 Test Item Value Reference Range Interpretation Comments O2 SATURATION (MEASURED) (BEAKER) 84.1 % (test code = 1455) POCT-GLUCOSE [id number] 23:14:00 Test Item Value Reference Range Interpretation Comments POC-GLUCOSE METER 248 mg/dL 70-110 H TESTED AT [facility] ([facility]) (test code = [place] 1538) [address] POCT-GLUCOSE [id number] 18:56:00 Test Item Value Reference Range Interpretation Comments POC-GLUCOSE METER 213 mg/dL 70-110 H TESTED AT [facility] (BEAKER) (test code = [place] 1538) [address] POCT-GLUCOSE [id number] 14:06:00 Test Item Value Reference Range Interpretation Comments POC-GLUCOSE METER 210 mg/dL 70-110 H TESTED AT [facility] [address] (BEAKER) (test code = FOST[place] Paul [place] 1538) [address] SPUTUM CULTURE + GRAM [id number] 13:45:00 Test Item Value Reference Range Interpretation Comments CULTURE (BEAKER) 4+ Normal respiratory (test code = 1095) pete present GRAM STAIN RESULT 4+ WBCs (BEAKER) (test code = 1123) GRAM STAIN RESULT 0-5 epithelial cells (BEAKER) (test code = 30358) GRAM STAIN RESULT 3+ gram negative rods (BEAKER) (test code = 41701) GRAM STAIN RESULT 2+ gram positive cocci (BEAKER) (test code = in pairs and clusters 412221) [id number] 12:37:00 Test Item Value Reference Range Interpretation Comments PARTIAL THROMBOPLASTIN TIME 74.3 seconds 22.5-36.0 H (BEAKER) (test code = 760) CBC W/PLT COUNT & AUTO [id number] 10:52:00 Test Item Value Reference Range Interpretation [...] H (test code = 413) VANCOMYCIN LEVEL, [id number] 05:41:00 Test Item Value Reference Range Interpretation Comments VANCOMYCIN RANDOM (BEAKER) (test 27.9 ug/mL code = 523) Reference Range: No NormalsBASIC METABOLIC [id number] 05:39:00 Test Item Value Reference Range Interpretation [...] APPLICABLE FOR DIALYSIS PATIEN TS. Specimen moderately [id number] 05:36:00 Test Item Value Reference Range Interpretation Comments MAGNESIUM (BEAKER) (test code = 2.0 mg/dL 1.6-2.6 627) [id number] 05:36:00 Test Item Value Reference Range Interpretation Comments PHOSPHORUS (BEAKER) (test code = 3.9 mg/dL 2.3-4.7 604) HEPATIC FUNCTION [id number] 05:36:00 Test Item Value Reference Range Interpretation [...] 6-55 H 347) Specimen moderately ictericOXYGEN SATURATION, [id number] 05:33:00 Test Item Value Reference Range Interpretation [...] WBC 0-0 H (test code = 413) [id number] 05:24:00 Test Item Value Reference Range Interpretation Comments PARTIAL THROMBOPLASTIN TIME 68.1 seconds 22.5-36.0 H (BEAKER) (test code = 760) RAD, CHEST, 1 VIEW, NON [id number] 04:41:00Reason for exam:->pl effusionShould this be performed at the bedside?->YesFINAL REPORT CLINICAL INDICATION: Support lines. Comparison: 01/18/2018 The ca rdiomediastinal contours are stable. Central pulmonary vascular congestion and bilateral parenchymalopacities are unchanged. There is no pneumothorax. Support lines are stable. Signed: Kellen Parra Verified Date/Time: 01/19/2018 04:41:27 Reading Location: [address] Reading Room APTT 2018-01-19 00:38:00 Test Item Value Reference Range Interpretation Comments PARTIAL THROMBOPLASTIN TIME 45.5 seconds 22.5-36.0 H ([facility]) (test code = 760) POCT-GLUCOSE [id number] 00:21:00 Test Item Value Reference Range Interpretation Comments POC-GLUCOSE METER 189 mg/dL 70-110 H TESTED AT [place] [address] ([facility]) (test code = FOSTER Paul [facility] 1538) [address] POCT-GLUCOSE [id number] 23:34:00 Test Item Value Reference Range Interpretation Comments POC-GLUCOSE METER 162 mg/dL 70-110 H TESTED AT [facility] [address] ([facility]) (test code = FOSTER Paul [facility] 1538) [address] POCT-GLUCOSE [id number] 18:09:00 Test Item Value Reference Range Interpretation Comments POC-GLUCOSE METER 172 mg/dL 70-110 H TESTED AT [place] [id number] ([facility]) (test code = FOSTER Paul [facility] 1538) [address] RAD, ABDOMEN/KUB, 1 VIEW [id number] 17:36:00Reason for exam:->ileusShould this be performed at the bedside?->YesFINAL REPORT Comparison: 01/17/2018 TECHNIQUE: Frontal image of the abdomen FINDINGS: There is a nonspecific bowel gas pattern. Tip of nasogastric projects in the distal stomach. No gross free intraperitoneal air. No acute skeletal abnormality. Signed: Kyle Rome MDReport Verified Date/Time: 01/18/2018 17:36:02 Reading Location: [address] Transitional Reading Room [id number] 17:10:00 Test Item Value Reference Range Interpretation Comments PARTIAL THROMBOPLASTIN TIME 27.8 seconds 22.5-36.0 (BEAKER) (test code = 760) Prior to initiating heparinPOCT-GLUCOSE [id number] 15:22:00 Test Item Value Reference Range Interpretation Comments POC-GLUCOSE METER 126 mg/dL 70-110 H TESTED AT [facility] [address] (BEAKER) (test code = MARIA GTAMMI [place] 1538) [address] [id number] 13:02:00 Test Item Value Reference Range Interpretation Comments PHOSPHORUS (BEAKER) (test code = 3.8 mg/dL 2.3-4.7 604) BASIC METABOLIC [id number] 13:02:00 Test Item Value Reference Range Interpretation [...] FOR DIALYSIS PATIEN TS. Specimen moderately ictericPOCT-GLUCOSE [id number] 12:11:00 Test Item Value Reference Range Interpretation Comments POC-GLUCOSE METER 113 mg/dL 70-110 H TESTED AT [facility] [address] (BEAKER) (test code = [place] 1538) [address] CBC W/PLT COUNT & AUTO [id number] 12:03:00 Test Item Value Reference Range Interpretation [...] = 413) RAD, CHEST, 1 VIEW, NON [id number] 09:44:00Reason for exam:->pl effusionShould this be performed [...] MDReport Verified Date/Time: 01/18/2018 09:44:26 Reading Location: [facility] C013T Transitional Reading Room SPUTUM CULTURE + GRAM [id number] 08:09:00 Test Item Value Reference Range Interpretation Comments CULTURE (BEAKER) 3+ Normal respiratory (test code = 1095) pete present GRAM STAIN RESULT 4+ WBCs (BEAKER) (test code = 1123) GRAM STAIN RESULT 0-5 epithelial cells (BEAKER) (test code = 70175) GRAM STAIN RESULT No organisms seen (BEAKER) (test code = 36121) POCT-GLUCOSE [id number] 07:52:00 Test Item Value Reference Range Interpretation Comments POC-GLUCOSE METER 146 mg/dL 70-110 H TESTED AT [facility] [address] (BEAKER) (test code = [facility] 1538) [address] POCT-GLUCOSE [id number] 06:30:00 Test Item Value Reference Range Interpretation Comments POC-GLUCOSE METER 135 mg/dL 70-110 H TESTED AT [place] [address] ([facility]) (test code = [facility] 1538) [address] POCT-GLUCOSE [id number] 06:30:00 Test Item Value Reference Range Interpretation Comments POC-GLUCOSE METER 130 mg/dL 70-110 H TESTED AT [place] [address] ([facility]) (test code = [facility] 1538) [address] [id number] 03:56:00 Test Item Value Reference Range Interpretation Comments PHOSPHORUS (BEAKER) (test code = 3.1 mg/dL 2.3-4.7 604) [id number] 03:56:00 Test Item Value Reference Range Interpretation Comments MAGNESIUM (BEAKER) (test code = 2.0 mg/dL 1.6-2.6 627) HEPATIC FUNCTION [id number] 03:56:00 Test Item Value Reference Range Interpretation [...] 6-55 H 347) Specimen moderately ictericVANCOMYCIN LEVEL, [id number] 03:53:00 Test Item Value Reference Range Interpretation Comments VANCOMYCIN RANDOM (BEAKER) (test 18.0 ug/mL code = 523) Reference Range: No [id number] 03:48:00 Test Item Value Reference Range Interpretation Comments CALCIUM (BEAKER) (test code = 697) 8.1 mg/dL 8.4-10.2 L CALCIUM, [id number] 03:34:00 Test Item Value Reference Range Interpretation Comments CALCIUM IONIZED (BEAKER) (test 1.06 mmol/L 1.12-1.27 L code = 698) PH, BLOOD (BEAKER) (test code = 7.38 1810) OXYGEN SATURATION, [id number] 03:33:00 Test Item Value Reference Range Interpretation Comments O2 SATURATION (MEASURED) (BEAKER) 85.8 % (test code = 1455) POCT-GLUCOSE [id number] 03:26:00 Test Item Value Reference Range Interpretation Comments POC-GLUCOSE METER 144 mg/dL 70-110 H TESTED AT [place] [address] (BEAKER) (test code = [place] 1538) [address] POCT-GLUCOSE [id number] 03:26:00 Test Item Value Reference Range Interpretation Comments POC-GLUCOSE METER 163 mg/dL 70-110 H TESTED AT [place] [address] (BEAKER) (test code = FOSTER Paul [place] 1538) [address] POCT-GLUCOSE [id number] 01:04:00 Test Item Value Reference Range Interpretation Comments POC-GLUCOSE METER 159 mg/dL 70-110 H TESTED AT [facility] [address] (BEAKER) (test code = FOSTER Paul [place] 1538) [address] POCT-GLUCOSE [id number] 00:12:00 Test Item Value Reference Range Interpretation Comments POC-GLUCOSE METER 132 mg/dL 70-110 H TESTED AT [facility] [address] (BEAKER) (test code = [place] 1538) [address] LACTIC ACID, ARTERIAL, WHOLE [id number] 23:54:00 Test Item Value Reference Range Interpretation Comments LACTATE BLOOD ARTERIAL (2) 0.7 mmol/L 0.5-2.2 (BEAKER) (test code = 2874) Effective 01/04/2016: Units/Reference Range ChangeNew: 0.5-2.2 mmol/L Previous: 5-20 mg/dLSpecimen moderately ictericPOTASSIUM-STAT [id number] 23:30:00 Test Item Value Reference Range Interpretation Comments POTASSIUM (BEAKER) (test code = 4.0 meq/L 3.6-5.5 379) BLOOD GAS, [id number] 23:30:00 Test Item Value Reference Range Interpretation [...] code = 1819) 50.0 % SODIUM NA-STAT [id number] 23:30:00 Test Item Value Reference Range Interpretation Comments SODIUM (BEAKER) (test code = 381) 134 meq/L 135-148 L GLUCOSE-STAT [id number] 23:30:00 Test Item Value Reference Range Interpretation Comments GLUCOSE RANDOM (BEAKER) (test code 138 mg/dL 70-110 H = 652) HGB/HCT (H&H) - STAT [id number] 23:30:00 Test Item Value Reference Range Interpretation Comments HEMOGLOBIN ([facility]) (test code = 9.0 g/dL 13.0-16.8 L 410) HEMATOCRIT ([facility]) (test code = 26.0 % 40.0-50.0 L 411) CALCIUM, [id number] 23:30:00 Test Item Value Reference Range Interpretation Comments CALCIUM IONIZED ([facility]) (test 1.04 mmol/L 1.12-1.27 L code = 698) PH, BLOOD ([facility]) (test code = 7.48 1810) OXYGEN SATURATION, [id number] 23:28:00 Test Item Value Reference Range Interpretation Comments O2 SATURATION (MEASURED) ([facility]) 82.0 % (test code = 1455) POCT-GLUCOSE [id number] 21:35:00 Test Item Value Reference Range Interpretation Comments POC-GLUCOSE METER 99 mg/dL 70-110 TESTED AT [place] [address] ([facility]) (test code = [facility] [address] 1538) POCT-GLUCOSE [id number] 21:35:00 Test Item Value Reference Range Interpretation Comments POC-GLUCOSE METER 111 mg/dL 70-110 H TESTED AT [place] [address] ([facility]) (test code = [facility] 1538) [address] RAD, CHEST, 1 VIEW, NON [id number] 17:08:00Reason for exam:->LIJ placment CVCShould this be [...] [place] Verified Date/Time: 01/17/2018 17:08:24 Reading Location: [facility] Radiology Reading Room GLUCOSE-STAT [id number] 16:33:00 Test Item Value Reference Range Interpretation Comments GLUCOSE RANDOM (BEAKER) (test code 147 mg/dL 70-110 H = 652) POTASSIUM-STAT [id number] 16:32:00 Test Item Value Reference Range Interpretation Comments POTASSIUM (BEAKER) (test code = 4.7 meq/L 3.6-5.5 379) [id number] 15:03:00 Test Item Value Reference Range Interpretation Comments PROCALCITONIN (BEAKER) (test code 5.33 ng/mL <0.05 H = 3036) SEPSIS RISK (ng/mL)Low: 0.05-0.50Intermediate: 0.51-2.00High: >=2.01CT BRAIN WITHOUT IV CONTRAST - [id number] 13:50:00Reason for exam:->altered mental statusFINAL REPORT CT [...] MDReport Verified Date/Time: 01/17/2018 13:50:42 Reading Location: [facility] Radiology Reading Room CALCIUM, [id number] 12:36:00 Test Item Value Reference Range Interpretation Comments CALCIUM IONIZED (BEAKER) (test 1.09 mmol/L 1.12-1.27 L code = 698) PH, BLOOD (BEAKER) (test code = 7.36 1810) GLUCOSE-STAT [id number] 12:36:00 Test Item Value Reference Range Interpretation Comments GLUCOSE RANDOM (BEAKER) (test code 147 mg/dL 70-110 H = 652) POTASSIUM-STAT [id number] 12:36:00 Test Item Value Reference Range Interpretation Comments POTASSIUM (BEAKER) (test code = 4.7 meq/L 3.6-5.5 379) RAD, ABDOMEN/KUB, 1 VIEW [id number] 08:42:00Reason for exam:->ileusShould this be performed at [...] MDReport Verified Date/Time: 01/17/2018 08:42:09 Reading Location: [facility] Radiology Reading Room CBC W/PLT COUNT & AUTO [id number] 08:18:00 Test Item Value Reference Range Interpretation [...] (AKER) (test code = 412) PLATELET COUNT ([facility]) (test code 63 K/CU MM 150-450 L = 756) MEAN PLATELET VOLUME (AKER) 11.1 fL 9.4-12.4 (test code = 754) NUCLEATED RED BLOOD CELLS (AKER) 6 /100 WBC 0-0 H (test code = 413) HEPARIN ASSAY - [id number] 08:07:00 Test Item Value Reference Range Interpretation Comments UNFRACTIONATED HEPARIN-ANTI 10A < u/ml 0.30-0.70 L ([facility]) (test code = 1606) Recommendations for Monitoring Unfractionated Heparin Therapeutic Range: 0.3- 0.7 u/mL with continuous IV infusionPOCT-GLUCOSE [id number] 06:09:00 Test Item Value Reference Range Interpretation Comments POC-GLUCOSE METER 143 mg/dL 70-110 H TESTED AT [facility] [address] ([facility]) (test code = [place] 1538) [address] RAD, CHEST, 1 VIEW, NON [id number] 04:43:00Reason for exam:->acute respiratory insufficiencyShould this be [...] MDReport Verified Date/Time: 01/17/2018 04:43:34 Reading Location: [facility] B1 [id number] Body Reading Room OXYGEN SATURATION, [id number] 04:13:00 Test Item Value Reference Range Interpretation Comments O2 SATURATION (MEASURED) (BEAKER) 85.7 % (test code = 1455) [id number] 04:06:00 Test Item Value Reference Range Interpretation Comments PHOSPHORUS (BEAKER) (test code = 3.1 mg/dL 2.3-4.7 604) [id number] 04:06:00 Test Item Value Reference Range Interpretation Comments MAGNESIUM (BEAKER) (test code = 2.1 mg/dL 1.6-2.6 627) COMPREHENSIVE METABOLIC [id number] 04:06:00 Test Item Value Reference Range Interpretation [...] DIALYSIS PATIEN TS. Specimen moderately ictericHEPATIC FUNCTION [id number] 04:06:00 Test Item Value Reference Range Interpretation [...] 347) Specimen moderately ictericLACTIC ACID, ARTERIAL, WHOLE [id number] 03:59:00 Test Item Value Reference Range Interpretation Comments LACTATE BLOOD 0.5 mmol/L 0.5-2.2 Specimen sligh tly ARTERIAL (2) (BEAKER) hemoly zed (test code = 2874) Effective 01/04/2016: Units/Reference Range ChangeNew: 0.5-2.2 mmol/L Previous: 5-20 mg/dLSpecimen moderately ictericBLOOD GAS, [id number] 03:58:00 Test Item Value Reference Range Interpretation [...] -2.0-3.0 (test code = 387) PATIENT TEMPERATURE ([facility]) (test 35.6 C code = 1818) FIO2 (BEAKER) (test code = 1819) 40.0 % CALCIUM, [id number] 03:58:00 Test Item Value Reference Range Interpretation Comments CALCIUM IONIZED (BEAKER) (test 1.14 mmol/L 1.12-1.27 code = 698) PH, BLOOD ([facility]) (test code = 7.41 1810) POCT-GLUCOSE [id number] 02:41:00 Test Item Value Reference Range Interpretation Comments POC-GLUCOSE METER 144 mg/dL 70-110 H TESTED AT [place] [address] ([facility]) (test code = FOSTER Paul [facility] 1538) [address] POCT-GLUCOSE [id number] 00:30:00 Test Item Value Reference Range Interpretation Comments POC-GLUCOSE METER 171 mg/dL 70-110 H TESTED AT [place] [address] ([facility]) ([facility] 1538) [address] POTASSIUM-STAT [id number] 00:08:00 Test Item Value Reference Range Interpretation Comments POTASSIUM (BEAKER) (test code = 4.5 meq/L 3.6-5.5 379) POCT-GLUCOSE [id number] 23:30:00 Test Item Value Reference Range Interpretation Comments POC-GLUCOSE METER 159 mg/dL 70-110 H TESTED AT [place] [address] ([facility]) (test code = FOSTER Paul [facility] 1538) [address] POCT-GLUCOSE [id number] 21:08:00 Test Item Value Reference Range Interpretation Comments POC-GLUCOSE METER 194 mg/dL 70-110 H TESTED AT [place] [address] ([facility]) (test code = MARIA GTAMMI Paul [facility] 1538) [address] POCT-GLUCOSE [id number] 21:08:00 Test Item Value Reference Range Interpretation Comments POC-GLUCOSE METER 230 mg/dL 70-110 H TESTED AT [place] [address] ([facility]) (test code = [facility] Laura [facility] 1538) [address] CALCIUM, [id number] 19:23:00 Test Item Value Reference Range Interpretation Comments CALCIUM IONIZED (BEAKER) (test 1.14 mmol/L 1.12-1.27 code = 698) PH, BLOOD ([facility]) (test code = 7.36 1810) POTASSIUM-STAT [id number] 19:23:00 Test Item Value Reference Range Interpretation Comments POTASSIUM (BEAKER) (test code = 5.1 meq/L 3.6-5.5 379) [id number] 17:27:00 Test Item Value Reference Range Interpretation Comments PHOSPHORUS (BEAKER) (test code = 2.2 mg/dL 2.3-4.7 L 604) [id number] 17:27:00 Test Item Value Reference Range Interpretation Comments MAGNESIUM (BEAKER) (test code = 2.1 mg/dL 1.6-2.6 627) PH, [id number] 17:03:00 Test Item Value Reference Range Interpretation Comments PH ARTERIAL (BEAKER) (test code = 383) 7.39 7.35-7.45 POCT-GLUCOSE [id number] 16:43:00 Test Item Value Reference Range Interpretation Comments POC-GLUCOSE METER 95 mg/dL 70-110 TESTED AT [place] [address] ([facility]) (test code = [facility] Laura [facility] [address] 1538) POCT-GLUCOSE [id number] 14:41:00 Test Item Value Reference Range Interpretation Comments POC-GLUCOSE METER 134 mg/dL 70-110 H TESTED AT [place] [address] ([facility]) (test code = [facility] 1538) [address] RAD, ABDOMEN/KUB, 1 VIEW [id number] 13:16:00Reason for exam:- >constipationShould this be performed [...] No acute osseous abnormality. Signed: Kay Walter [facility]ep[facility] Verified Date/Time: 01/16/2018 13:16:27 Reading Location: [facility] Mammo Reading Room Electronically signed by: KAY WALTER 01/16/2018 01:16 PMCALCIUM, [id number] 12:38:00 Test Item Value Reference Range Interpretation Comments CALCIUM IONIZED (BEAKER) (test 1.14 mmol/L 1.12-1.27 code = 698) PH, BLOOD (AKER) (test code = 7.40 1810) POCT-GLUCOSE [id number] 12:29:00 Test Item Value Reference Range Interpretation Comments POC-GLUCOSE METER 127 mg/dL 70-110 H TESTED AT [place] [address] ([facility]) (test code = [facility] 1538) [address] POCT-GLUCOSE [id number] 10:34:00 Test Item Value Reference Range Interpretation Comments POC-GLUCOSE METER 130 mg/dL 70-110 H TESTED AT [place] [address] ([facility]) (test code = [facility] 1538) [address] POCT-GLUCOSE [id number] 09:10:00 Test Item Value Reference Range Interpretation Comments POC-GLUCOSE METER 151 mg/dL 70-110 H TESTED AT [place] [address] ([facility]) (test code = [facility] 1538) [address] HEPARIN ASSAY - [id number] 09:00:00 Test Item Value Reference Range Interpretation Comments UNFRACTIONATED HEPARIN-ANTI 10A < u/ml 0.30-0.70 L ([facility]) (test code = 1606) Recommendations for Monitoring [...] H (test code = 413) OXYGEN SATURATION, [id number] 08:30:00 Test Item Value Reference Range Interpretation Comments O2 SATURATION (MEASURED) (AKER) 87.1 % (test code = 1455) RAD, CHEST, 1 VIEW, NON [id number] 08:11:00Reason for exam:->acute respiratory insufficiencyShould this be performed at the bedside?->YesFINAL REPORT CLINICAL HISTORY: acute respiratory insufficiency TECHNIQUE: 1 view of the chest. COMPARISON: 01/15/2018 IMPRESSION: The Brusett-Moni catheter has been removed. The supporting lines and tubes are otherwise unchanged. There is no pneumothorax. Mild bilateral perihilar lung opacities have decreased. The cardiomediastinal silhouette is magnified by technique with sternotomy wires. Signed: Lorna Slade [facility] Verified Date/Time: 01/16/2018 08:11:02 Reading Location: [facility] Radiology Reading Room POCT- GLUCOSE [id number] 06:43:00 Test Item Value Reference Range Interpretation Comments POC-GLUCOSE METER 107 mg/dL 70-110 TESTED AT [facility] [address] ([facility]) (test code = [place] 1538) [address] U/S, ABDOMINAL, [id number] 05:25:00Abdomen limited area? Add comment if clarification [...] MDReport Verified Date/Time: 01/16/2018 05:25:06 Reading Location: [address] Body Reading Room IC ACID, ARTERIAL, WHOLE [id number] 04:06:00 Test Item Value Reference Range Interpretation Comments LACTATE BLOOD ARTERIAL (2) 0.6 mmol/L 0.5-2.2 (BEAKER) (test code = 2874) Effective 01/04/2016: Units/Reference Range ChangeNew: 0.5-2.2 mmol/L Previous: 5-20 mg/dLSpecimen moderately [id number] 04:00:00 Test Item Value Reference Range Interpretation Comments PHOSPHORUS (BEAKER) (test code = 2.2 mg/dL 2.3-4.7 L 604) [id number] 04:00:00 Test Item Value Reference Range Interpretation Comments MAGNESIUM (BEAKER) (test code = 2.0 mg/dL 1.6-2.6 627) [id number] 04:00:00 Test Item Value Reference Range Interpretation Comments CALCIUM (BEAKER) (test code = 697) 8.5 mg/dL 8.4-10.2 COMPREHENSIVE METABOLIC [id number] 04:00:00 Test Item Value Reference Range Interpretation [...] DIALYSIS PATIEN TS. Specimen moderately ictericHEPATIC FUNCTION [id number] 04:00:00 Test Item Value Reference Range Interpretation [...] 6-55 H 347) Specimen moderately ictericBLOOD GAS, [id number] 03:51:00 Test Item Value Reference Range Interpretation [...] (test code = 1819) 60.0 % PROTHROMBIN [id number] 03:51:00 Test Item Value Reference Range Interpretation Comments PROTIME (BEAKER) (test code = 15.2 seconds 11.7-14.7 H 759) INR (BEAKER) (test code = 370) 1.2 <=5.9 RECOMMENDED COUMADIN/WARFARIN INR THERAPY RANGESSTANDARD DOSE: 2.0 - 3.0 Includes: PROPHYLAXIS forvenous thrombosis, systemic embolization; TREATMENT for venous thrombosis and/or pulmonary embolus.HIGH RISK: Target INR is 2.5-3.5 for patients with mechanical heart valves.CALCIUM, [id number] 03:51:00 Test Item Value Reference Range Interpretation Comments CALCIUM IONIZED (BEAKER) (test 1.17 mmol/L 1.12-1.27 code = 698) PH, BLOOD (BEAKER) (test code = 7.42 1810) POCT-GLUCOSE [id number] 02:08:00 Test Item Value Reference Range Interpretation Comments POC-GLUCOSE METER 110 mg/dL 70-110 TESTED AT [place] [address] ([facility]) (test code = [place] 1538) [address] POCT-GLUCOSE [id number] 01:14:00 Test Item Value Reference Range Interpretation Comments POC-GLUCOSE METER 107 mg/dL 70-110 TESTED AT [place] [address] ([facility]) (test code = [place] 1538) [address] POCT-GLUCOSE [id number] 00:29:00 Test Item Value Reference Range Interpretation Comments POC-GLUCOSE METER 129 mg/dL 70-110 H TESTED AT [place] [address] ([facility]) (test code = [place]OSTER [place] 1538) [address] POCT-GLUCOSE [id number] 23:07:00 Test Item Value Reference Range Interpretation Comments POC-GLUCOSE METER 152 mg/dL 70-110 H TESTED AT [place] [address] ([facility]) (test code = FOSTER Paul [facility] 1538) [address] POCT-GLUCOSE [id number] 22:09:00 Test Item Value Reference Range Interpretation Comments POC-GLUCOSE METER 171 mg/dL 70-110 H TESTED AT [place] [address] ([facility]) (test code = [place]OST[place] 1538) [address] POCT-GLUCOSE [id number] 21:13:00 Test Item Value Reference Range Interpretation Comments POC-GLUCOSE METER 171 mg/dL 70-110 H TESTED AT [place] [address] ([facility]) (test code = FOSTER Paul [facility] 1538) [address] CALCIUM, [id number] 20:50:00 Test Item Value Reference Range Interpretation Comments CALCIUM IONIZED ([facility]) (test 1.15 mmol/L 1.12-1.27 code = 698) PH, BLOOD ([facility]) (test code = 7.34 1810) POCT-GLUCOSE [id number] 20:21:00 Test Item Value Reference Range Interpretation Comments POC-GLUCOSE METER 206 mg/dL 70-110 H TESTED AT [place] [address] ([facility]) (test code = [place] 1538) [address] POCT-GLUCOSE [id number] 19:16:00 Test Item Value Reference Range Interpretation Comments POC-GLUCOSE METER 197 mg/dL 70-110 H TESTED AT [facility] ([facility]) (test code = [place] 1538) [address] [id number] 17:15:00 Test Item Value Reference Range Interpretation Comments PHOSPHORUS ([facility]) (test code = 4.1 mg/dL 2.3-4.7 604) [id number] 17:15:00 Test Item Value Reference Range Interpretation Comments MAGNESIUM ([facility]) (test code = 1.9 mg/dL 1.6-2.6 627) EEG AWAKE AND [id number] 14:56:00For STAT EEG- after 5 PM weekdays, weekends and holidays, page the on-call EEG TechReason for exam:->AMSShould this be performed at the bedside?->YesDate(s) of EE01/15/2018DATE OF REPORT: 01/15/2018ACC: [id number] Number: [id number] Location: Inpatient ICUStart time: 13:18Stop time: 13:40ICD-10: R41.82CPT Code: 46687 HISTORY: 62 y/o man with hxof AFib, [...] Kwon MD, MSClinic al Neurophysiology/Epilepsy Attending HEPARIN [id number] 13:21:00 Test Item Value Reference Range Interpretation Comments HEPARIN ANTIBODY ([facility]) (test code Negative Negative = 646) HEPARIN ANTIBODY OD ([facility]) (test 0.076 <0.400 code = 2659) 4T TOTAL SCORE ([facility]) (test code = 5 6981) Probability of HIT based on scoring system: 6-8 = High probability; 4-5 = intermediate probability;0-3 = low probabilityPOCT-GLUCOSE [id number] 12:26:00 Test Item Value Reference Range Interpretation Comments POC-GLUCOSE METER 128 mg/dL 70-110 H TESTED AT [facility] ([facility]) (test code = [place]ER [place] 1538) [address] FIBRIN SOLUBLE [id number] 11:02:00 Test Item Value Reference Range Interpretation Comments FIBRIN SOLUBLE MONOMER ([facility]) Negative (test code = 1416) HEPARIN ASSAY - [id number] 10:20:00 Test Item Value Reference Range Interpretation Comments UNFRACTIONATED HEPARIN-ANTI 10A < u/ml 0.30-0.70 L ([facility]) (test code = 1606) Recommendations for Monitoring Unfractionated Heparin Therapeutic Range: 0.3- 0.7 u/mL with continuous IV [id number] 10:14:00 Test Item Value Reference Range Interpretation Comments D-DIMER QUANTITATIVE ([facility]) 3.76 MG/L FEU <0.50 H (test code [...] of thrombosis is within 95-100% range. GLUCOSE-STAT [id number] 10:03:00 Test Item Value Reference Range Interpretation Comments GLUCOSE RANDOM (BEAKER) (test code 151 mg/dL 70-110 H = 652) CALCIUM, [id number] 10:02:00 Test Item Value Reference Range Interpretation Comments CALCIUM IONIZED (BEAKER) (test 1.13 mmol/L 1.12-1.27 code = 698) PH, BLOOD (BEAKER) (test code = 7.36 1810) POTASSIUM-STAT [id number] 10:01:00 Test Item Value Reference Range Interpretation Comments POTASSIUM (BEAKER) (test code = 4.3 meq/L 3.6-5.5 379) CBC W/PLT COUNT & AUTO [id number] 07:43:00 Test Item Value Reference Range Interpretation [...] = 2801) RAD, CHEST, 1 VIEW, NON [id number] 04:00:00Reason for exam:->acute respiratory insufficiencyShould this be performed at the bedside?->Yes Addendum BeginsREPORT STATUS:A Correction: Comparison is made to previous dated 01/14/2018. Signed: Kellen Parra Verified Date/Time: 01/15/2018 04:00:43 Reading Location: [address] Reading RoomAddendum EndsFINAL REPORT CLINICAL ADEEL CATION: Respiratory insufficiency Comparison: 01/15/2018 The cardiomediastinal contours are stable. Central pulmonary vascular congestion and bilateral parenchymal opacities are unchanged. There is no pneumothorax. Support lines are stable. Signed: Kellen Parraeport Verified Date/Time: 01/15/201803:46:27 Reading Location: [address] Reading Room [id number] 03:36:00 Test Item Value Reference Range Interpretation Comments PHOSPHORUS (BEAKER) (test code = 2.7 mg/dL 2.3-4.7 604) [id number] 03:36:00 Test Item Value Reference Range Interpretation Comments MAGNESIUM (BEAKER) (test code = 2.0 mg/dL 1.6-2.6 627) COMPREHENSIVE METABOLIC [id number] 03:36:00 Test Item Value Reference Range Interpretation [...] DIALYSIS PATIEN TS. Specimen slightly ictericHEPATIC FUNCTION [id number] 03:36:00 Test Item Value Reference Range Interpretation [...] U/L 6-55 H 347) Specimen slightly ictericPROTHROMBIN TIME/[id number] 03:35:00 Test Item Value Reference Range Interpretation [...] mmol/L Previous: 5-20 mg/dLSpecimen slightly ictericBLOOD GAS, [id number] 03:29:00 Test Item Value Reference Range Interpretation [...] 37.0 C (test code = 1818) FIO2 ([facility]) (test code = 1819) 40.0 % OXYGEN SATURATION, [id number] 03:26:00 Test Item Value Reference Range Interpretation Comments O2 SATURATION (MEASURED) ([facility]) 72.5 % (test code = 1455) CALCIUM, [id number] 00:17:00 Test Item Value Reference Range Interpretation Comments CALCIUM IONIZED ([facility]) (test 1.19 mmol/L 1.12-1.27 code = 698) PH, BLOOD ([facility]) (test code = 7.36 1810) POCT-GLUCOSE [id number] 00:15:00 Test Item Value Reference Range Interpretation Comments POC-GLUCOSE METER 144 mg/dL 70-110 H TESTED AT [place] [address] ([facility]) (test code = [facility] 1538) [address] POCT-GLUCOSE [id number] 22:43:00 Test Item Value Reference Range Interpretation Comments POC-GLUCOSE METER 98 mg/dL 70-110 TESTED AT [place] [address] ([facility]) (test code = [facility] [address]38) POCT-GLUCOSE [id number] 22:43:00 Test Item Value Reference Range Interpretation Comments POC-GLUCOSE METER 80 mg/dL 70-110 TESTED AT [place] [address] ([facility]) (test code = [facility] [address]) VANCOMYCIN LEVEL, [id number] 20:20:00 Test Item Value Reference Range Interpretation Comments VANCOMYCIN TROUGH ([facility]) (test 20.1 ug/mL 10.0-20.0 H code = 522) Before vanc [id number] 16:52:00 Test Item Value Reference Range Interpretation Comments PHOSPHORUS (BEAKER) (test code = 1.7 mg/dL 2.3-4.7 L 604) [id number] 16:52:00 Test Item Value Reference Range Interpretation Comments MAGNESIUM (BEAKER) (test code = 2.3 mg/dL 1.6-2.6 627) [id number] 16:39:00 Test Item Value Reference Range Interpretation Comments AMMONIA (BEAKER) (test code = 348) 32 mol/L 18-72 PH, [id number] 16:01:00 Test Item Value Reference Range Interpretation Comments PH ARTERIAL (BEAKER) (test code = 383) 7.42 7.35-7.45 GLUCOSE-STAT [id number] 16:01:00 Test Item Value Reference Range Interpretation Comments GLUCOSE RANDOM (BEAKER) (test code = 95 mg/dL 70-110 652) POTASSIUM-STAT [id number] 16:01:00 Test Item Value Reference Range Interpretation Comments POTASSIUM (BEAKER) (test code = 4.3 meq/L 3.6-5.5 379) CALCIUM, [id number] 16:01:00 Test Item Value Reference Range Interpretation Comments CALCIUM IONIZED (BEAKER) (test 1.28 mmol/L 1.12-1.27 H code = 698) PH, BLOOD (BEAKER) (test code = 7.42 1810) CALCIUM, [id number] 12:19:00 Test Item Value Reference Range Interpretation Comments CALCIUM IONIZED (BEAKER) (test 1.36 mmol/L 1.12-1.27 H code = 698) PH, BLOOD (BEAKER) (test code = 7.41 1810) GLUCOSE-STAT [id number] 12:17:00 Test Item Value Reference Range Interpretation Comments GLUCOSE RANDOM (BEAKER) (test code = 94 mg/dL 70-110 652) POTASSIUM-STAT [id number] 12:17:00 Test Item Value Reference Range Interpretation Comments POTASSIUM (BEAKER) (test code = 4.3 meq/L 3.6-5.5 379) [id number] 11:34:00 Test Item Value Reference Range Interpretation Comments MAGNESIUM (BEAKER) (test code = 2.1 mg/dL 1.6-2.6 627) BASIC METABOLIC [id number] 11:34:00 Test Item Value Reference Range Interpretation [...] DIALYSIS PATIEN TS. Specimen slightly ictericHEPATIC FUNCTION [id number] 11:34:00 Test Item Value Reference Range Interpretation [...] 6-55 H 347) Specimen slightly ictericBLOOD GAS, [id number] 09:44:00 Test Item Value Reference Range Interpretation [...] (test code = 1819) 100.0 % GLUCOSE-STAT [id number] 09:42:00 Test Item Value Reference Range Interpretation Comments GLUCOSE RANDOM (BEAKER) (test code = 95 mg/dL 70-110 652) POTASSIUM-STAT [id number] 09:42:00 Test Item Value Reference Range Interpretation Comments POTASSIUM (BEAKER) (test code = 4.5 meq/L 3.6-5.5 379) CALCIUM, [id number] 09:38:00 Test Item Value Reference Range Interpretation Comments CALCIUM IONIZED (BEAKER) (test 1.26 mmol/L 1.12-1.27 code = 698) PH, BLOOD (BEAKER) (test code = 7.41 1810) HEPARIN ASSAY - [id number] 08:44:00 Test Item Value Reference Range Interpretation Comments UNFRACTIONATED HEPARIN-ANTI 10A < u/ml 0.30-0.70 L (BEAKER) (test code = 1606) Recommendations for Monitoring Unfractionated Heparin Therapeutic Range: 0.3- 0.7 u/mL with continuous IV infusionGLUCOSE-STAT [id number] 06:41:00 Test Item Value Reference Range Interpretation [...] (test 0.0 % 0.0-5.0 code = 1414) [id number] 05:05:00 Test Item Value Reference Range Interpretation Comments PHOSPHORUS (BEAKER) (test code = 2.5 mg/dL 2.3-4.7 604) [id number] 05:05:00 Test Item Value Reference Range Interpretation Comments MAGNESIUM (BEAKER) (test code = 2.1 mg/dL 1.6-2.6 627) HEPATIC FUNCTION [id number] 05:05:00 Test Item Value Reference Range Interpretation [...] 1266 U/L 6-55 H 347) Specimen slightly [id number] 05:05:00 Test Item Value Reference Range Interpretation Comments CALCIUM (BEAKER) (test code = 697) 9.0 mg/dL 8.4-10.2 LACTATE DEHYDROGENASE (LDH)2018-01-14 05:05:00 Test Item Value Reference Range Interpretation Comments LACTATE DEHYDROGENASE (BEAKER) (test 667 U/L 125-220 H code = 635) PROTHROMBIN [id number] 05:05:00 Test Item Value Reference Range Interpretation Comments PROTIME (BEAKER) (test code = 15.2 seconds 11.7-14.7 H 759) INR (BEAKER) (test code = 370) 1.2 <=5.9 RECOMMENDED COUMADIN/WARFARIN INR THERAPY RANGESSTANDARD DOSE: 2.0 - 3.0 Includes: PROPHYLAXIS forvenous thrombosis, systemic embolization; TREATMENT for venous thrombosis and/or pulmonary embolus.HIGH RISK: Target INR is 2.5-3.5 for patients with mechanical heart valves.[id number] 05:05:00 Test Item Value Reference Range Interpretation Comments FIBRINOGEN LEVEL (BEAKER) (test 280 mg/dl 225-434 code = 658) RAD, CHEST, 1 VIEW, NON [id number] 04:57:00Reason for exam:- >impella/ECMO/intubationShould this be performed at the bedside?->YesFINAL REPORT CLINICAL INDICATION: Support lines. Comparison: 01/13/2018 The cardiomediastinal contours are stable. Cardiac opacities may reflect atelectasis but pneumonitis should be excluded clinically. There is no pneumothorax. Support lines are stable. Signed: Kellen Parra Verified Date/Time: 01/14/2018 04:57:02 Reading Location: [address] Reading Room LACTIC ACID, ARTERIAL, WHOLE [id number] 04:55:00 Test Item Value Reference Range Interpretation [...] H (BEAKER) (test code = 413) CALCIUM, [id number] 04:39:00 Test Item Value Reference Range Interpretation Comments CALCIUM IONIZED (BEAKER) (test 1.20 mmol/L 1.12-1.27 code = 698) PH, BLOOD (BEAKER) (test code = 7.37 1810) OXYGEN SATURATION, [id number] 04:38:00 Test Item Value Reference Range Interpretation Comments O2 SATURATION (MEASURED) (BEAKER) 75.3 % (test code = 1455) BLOOD GAS, [id number] 04:37:00 Test Item Value Reference Range Interpretation [...] (test code = 1819) 40.0 % GLUCOSE-STAT [id number] 04:37:00 Test Item Value Reference Range Interpretation Comments GLUCOSE RANDOM (BEAKER) (test code 154 mg/dL 70-110 H = 652) GLUCOSE-STAT [id number] 02:52:00 Test Item Value Reference Range Interpretation Comments GLUCOSE RANDOM (BEAKER) (test code 179 mg/dL 70-110 H = 652) GLUCOSE-STAT [id number] 01:26:00 Test Item Value Reference Range Interpretation Comments GLUCOSE RANDOM (BEAKER) (test code 195 mg/dL 70-110 H = 652) [id number] 00:08:00 Test Item Value Reference Range Interpretation Comments POTASSIUM (BEAKER) (test code = 4.2 meq/L 3.5-5.1 379) [id number] 00:08:00 Test Item Value Reference Range Interpretation Comments GLUCOSE RANDOM (BEAKER) (test code 237 mg/dL 70-105 H = 652) CBC W/PLT COUNT & AUTO [id number] 22:28:00 Test Item Value Reference Range Interpretation [...] = 413) RAD, CHEST, 1 VIEW, NON [id number] 21:50:00Reason for exam:->chest tubes/intubationShould this be performed [...] MDReport Verified Date/Time: 01/13/2018 21:50:50 Reading Location: [facility] C013W Consult Reading Room THROMBOELASTOGRAPH [...] % 0.0-5.0 code = 1414) BASIC METABOLIC [id number] 21:35:00 Test Item Value Reference Range Interpretation [...] APPLICABLE FOR DIALYSIS PATIEN TS. Specimen slightly [id number] 21:06:00 Test Item Value Reference Range Interpretation Comments PHOSPHORUS (BEAKER) (test code = 3.7 mg/dL 2.3-4.7 604) [id number] 21:06:00 Test Item Value Reference Range Interpretation Comments MAGNESIUM (BEAKER) (test code = 2.0 mg/dL 1.6-2.6 627) LACTIC ACID, ARTERIAL, WHOLE [id number] 21:06:00 Test Item Value Reference Range Interpretation Comments LACTATE BLOOD ARTERIAL (2) 1.8 mmol/L 0.5-2.2 (BEAKER) (test code = 2874) Effective 01/04/2016: Units/Reference Range ChangeNew: 0.5-2.2 mmol/L Previous: 5-20 mg/dLSpecimen slightly [id number] 21:01:00 Test Item Value Reference Range Interpretation Comments PARTIAL THROMBOPLASTIN TIME 35.1 seconds 22.5-36.0 (BEAKER) (test code = 760) [id number] 21:00:00 Test Item Value Reference Range Interpretation Comments FIBRINOGEN LEVEL (BEAKER) (test 253 mg/dl 225-434 code = 658) PROTHROMBIN [id number] 20:59:00 Test Item Value Reference Range Interpretation Comments PROTIME (BEAKER) (test code = 16.4 seconds 11.7-14.7 H 759) INR (BEAKER) (test code = 370) 1.3 <=5.9 RECOMMENDED COUMADIN/WARFARIN INR THERAPY RANGESSTANDARD DOSE: 2.0 - 3.0 Includes: PROPHYLAXIS forvenous thrombosis, systemic embolization; TREATMENT for venous thrombosis and/or pulmonary embolus.HIGH RISK: Target INR is 2.5-3.5 for patients with mechanical heart valves.BLOOD GAS, [id number] 20:47:00 Test Item Value Reference Range Interpretation [...] (test code = 1819) 40.0 % GLUCOSE-STAT [id number] 20:47:00 Test Item Value Reference Range Interpretation Comments GLUCOSE RANDOM (BEAKER) (test code 235 mg/dL 70-110 H = 652) CALCIUM, [id number] 20:47:00 Test Item Value Reference Range Interpretation Comments CALCIUM IONIZED (BEAKER) (test 0.97 mmol/L 1.12-1.27 L code = 698) PH, BLOOD (BEAKER) (test code = 7.39 1810) HGB/HCT (H&H) - STAT [id number] 20:46:00 Test Item Value Reference Range Interpretation Comments HEMOGLOBIN (BEAKER) (test code = 7.7 g/dL 13.0-16.8 L 410) HEMATOCRIT (BEAKER) (test code = 23.0 % 40.0-50.0 L 411) POTASSIUM-STAT [id number] 20:46:00 Test Item Value Reference Range Interpretation Comments POTASSIUM (BEAKER) (test code = 3.4 meq/L 3.6-5.5 L 379) SODIUM NA-STAT [id number] 20:46:00 Test Item Value Reference Range Interpretation Comments SODIUM (BEAKER) (test code = 381) 133 meq/L 135-148 L OXYGEN SATURATION, [id number] 20:42:00 Test Item Value Reference Range Interpretation Comments O2 SATURATION (MEASURED) (BEAKER) 74.1 % (test code = 1455) BLOOD GAS, [id number] 18:58:00 Test Item Value Reference Range Interpretation [...] code = 1819) 100.0 % SODIUM NA-STAT [id number] 18:58:00 Test Item Value Reference Range Interpretation Comments SODIUM (BEAKER) (test code = 381) 131 meq/L 135-148 L POTASSIUM-STAT [id number] 18:58:00 Test Item Value Reference Range Interpretation Comments POTASSIUM (BEAKER) (test code = 3.4 meq/L 3.6-5.5 L 379) GLUCOSE-STAT [id number] 18:58:00 Test Item Value Reference Range Interpretation Comments GLUCOSE RANDOM (BEAKER) (test code 214 mg/dL 70-110 H = 652) HGB/HCT (H&H) - STAT [id number] 18:58:00 Test Item Value Reference Range Interpretation [...] % 0.0-5.0 code = 1414) BLOOD GAS, [id number] 18:11:00 Test Item Value Reference Range Interpretation [...] code = 1819) 97.0 % SODIUM NA-STAT [id number] 18:11:00 Test Item Value Reference Range Interpretation Comments SODIUM (BEAKER) (test code = 381) 132 meq/L 135-148 L GLUCOSE-STAT [id number] 18:11:00 Test Item Value Reference Range Interpretation Comments GLUCOSE RANDOM (BEAKER) (test code 200 mg/dL 70-110 H = 652) HGB/HCT (H&H) - STAT [id number] 18:11:00 Test Item Value Reference Range Interpretation Comments HEMOGLOBIN (BEAKER) (test code = 8.2 g/dL 13.0-16.8 L 410) HEMATOCRIT (BEAKER) (test code = 24.0 % 40.0-50.0 L 411) POTASSIUM-STAT [id number] 18:07:00 Test Item Value Reference Range Interpretation Comments POTASSIUM (BEAKER) (test code = 3.5 meq/L 3.6-5.5 L 379) [id number] 16:37:00 Test Item Value Reference Range Interpretation Comments PHOSPHORUS (BEAKER) (test code = 2.5 mg/dL 2.3-4.7 604) [id number] 16:37:00 Test Item Value Reference Range Interpretation Comments MAGNESIUM (BEAKER) (test code = 2.1 mg/dL 1.6-2.6 627) [id number] 16:29:00 Test Item Value Reference Range Interpretation [...] for patients with mechanical heart valves.BLOOD GAS, [id number] 16:16:00 Test Item Value Reference Range Interpretation [...] (test code = 1819) 40.0 % CALCIUM, [id number] 16:14:00 Test Item Value Reference Range Interpretation Comments CALCIUM IONIZED (BEAKER) (test 1.09 mmol/L 1.12-1.27 L code = 698) PH, BLOOD (BEAKER) (test code = 7.64 1810) GLUCOSE-STAT [id number] 16:12:00 Test Item Value Reference Range Interpretation Comments GLUCOSE RANDOM (BEAKER) (test code 182 mg/dL 70-110 H = 652) CALCIUM, [id number] 12:53:00 Test Item Value Reference Range Interpretation Comments CALCIUM IONIZED (BEAKER) (test 1.12 mmol/L 1.12-1.27 code = 698) PH, BLOOD (BEAKER) (test code = 7.51 1810) BLOOD GAS, [id number] 12:53:00 Test Item Value Reference Range Interpretation [...] 1819) 40.0 % HGB/HCT (H&H) - STAT [id number] 12:53:00 Test Item Value Reference Range Interpretation Comments HEMOGLOBIN (BEAKER) (test code = 8.3 g/dL 13.0-16.8 L 410) HEMATOCRIT (BEAKER) (test code = 24.0 % 40.0-50.0 L 411) GLUCOSE-STAT [id number] 12:53:00 Test Item Value Reference Range Interpretation Comments GLUCOSE RANDOM (BEAKER) (test code 185 mg/dL 70-110 H = 652) POTASSIUM-STAT [id number] 12:52:00 Test Item Value Reference Range Interpretation Comments POTASSIUM (BEAKER) (test code = 3.7 meq/L 3.6-5.5 379) CBC W/PLT COUNT & AUTO [id number] 11:04:00 Test Item Value Reference Range Interpretation [...] 0-0 H (test code = 413) POTASSIUM-STAT [id number] 10:49:00 Test Item Value Reference Range Interpretation Comments POTASSIUM (BEAKER) (test code = 3.8 meq/L 3.6-5.5 379) HEPARIN ASSAY - [id number] 09:55:00 Test Item Value Reference Range Interpretation Comments UNFRACTIONATED HEPARIN-ANTI 10A 0.14 u/ml 0.30-0.70 L (BEAKER) (test code = 1606) Recommendations for Monitoring Unfractionated Heparin Therapeutic Range: 0.3- 0.7 u/mL with continuous IV [id number] 09:54:00 Test Item Value Reference Range Interpretation Comments PARTIAL THROMBOPLASTIN TIME 57.6 seconds 22.5-36.0 H (BEAKER) (test code = 760) BLOOD GAS, [id number] 09:33:00 Test Item Value Reference Range Interpretation [...] (test code = 1819) 40.0 % GLUCOSE-STAT [id number] 09:33:00 Test Item Value Reference Range Interpretation Comments GLUCOSE RANDOM (BEAKER) (test code 192 mg/dL 70-110 H = 652) GLUCOSE-STAT [id number] 09:33:00 Test Item Value Reference Range Interpretation Comments GLUCOSE RANDOM (BEAKER) (test code 192 mg/dL 70-110 H = 652) CALCIUM, [id number] 09:32:00 Test Item Value Reference Range Interpretation Comments CALCIUM IONIZED (BEAKER) (test 1.15 mmol/L 1.12-1.27 code = 698) PH, BLOOD (BEAKER) (test code = 7.51 1810) BLOOD GAS, [id number] 07:23:00 Test Item Value Reference Range Interpretation [...] % 0.0-5.0 code = 1414) BLOOD GAS, [id number] 06:13:00 Test Item Value Reference Range Interpretation [...] code = 1819) 40.0 % BLOOD GAS, [id number] 05:13:00 Test Item Value Reference Range Interpretation [...] (BEAKER) (test code = 1819) 100.0 % [id number] 04:41:00 Test Item Value Reference Range Interpretation Comments PARTIAL THROMBOPLASTIN TIME 61.3 seconds 22.5-36.0 H (BEAKER) (test code = 760) RAD, CHEST, 1 VIEW, NON [id number] 04:38:00Reason for exam:- >impella/ECMO/intubationShould this be performed at the bedside?->YesFINAL REPORT CLINICAL INDICATION: Support lines. Comparison: 01/12/2018 The cardiomediastinal contours are stable. Central pulmonary vascular prominence and bilateral parenchymalopacities are previous. There is no pneumothorax. Support lines are stable. Signed: Kellen Parra Verified Date/Time: 01/13/2018 04:38:41 Reading Location: [address] Reading Room HEPATIC FUNCTION [id number] 04:25:00 Test Item Value Reference Range Interpretation [...] 2232 U/L 6-55 H 347) Specimen slightly [id number] 04:19:00 Test Item Value Reference Range Interpretation Comments PHOSPHORUS (BEAKER) (test code = 4.1 mg/dL 2.3-4.7 604) [id number] 04:19:00 Test Item Value Reference Range Interpretation Comments MAGNESIUM (BEAKER) (test code = 1.9 mg/dL 1.6-2.6 627) [id number] 04:19:00 Test Item Value Reference Range Interpretation Comments CALCIUM (BEAKER) (test code = 697) 8.6 mg/dL 8.4-10.2 BASIC METABOLIC [id number] 04:19:00 Test Item Value Reference Range Interpretation [...] 1658 U/L 125-220 H code = 635) [id number] 04:16:00 Test Item Value Reference Range Interpretation Comments FIBRINOGEN LEVEL (BEAKER) (test 299 mg/dl 225-434 code = 658) LACTIC ACID, ARTERIAL, WHOLE [id number] 04:16:00 Test Item Value Reference Range Interpretation Comments LACTATE BLOOD ARTERIAL (2) 0.8 mmol/L 0.5-2.2 (BEAKER) (test code = 2874) Effective 01/04/2016: Units/Reference Range ChangeNew: 0.5-2.2 mmol/L Previous: 5-20 mg/dLSpecimen slightly ictericPROTHROMBIN [id number] 04:15:00 Test Item Value Reference Range Interpretation Comments PROTIME (BEAKER) (test code = 15.8 seconds 11.7-14.7 H 759) INR (BEAKER) (test code = 370) 1.3 <=5.9 RECOMMENDED COUMADIN/WARFARIN INR THERAPY RANGESSTANDARD DOSE: 2.0 - 3.0 Includes: PROPHYLAXIS forvenous thrombosis, systemic embolization; TREATMENT for venous thrombosis and/or pulmonary embolus.HIGH RISK: Target INR is 2.5-3.5 for patients with mechanical heart valves.CALCIUM, [id number] 04:04:00 Test Item Value Reference Range Interpretation Comments CALCIUM IONIZED (BEAKER) (test 1.15 mmol/L 1.12-1.27 code = 698) PH, BLOOD (BEAKER) (test code = 7.33 1810) BLOOD GAS, [id number] 04:03:00 Test Item Value Reference Range Interpretation [...] (test code = 1819) 40.0 % PLATELET [id number] 03:58:00 Test Item Value Reference Range Interpretation Comments PLATELET COUNT (BEAKER) (test code 89 K/CU MM 150-450 L = 756) OXYGEN SATURATION, [id number] 03:57:00 Test Item Value Reference Range Interpretation Comments O2 SATURATION (MEASURED) (BEAKER) 79.4 % (test code = 1455) BLOOD GAS, [id number] 01:19:00 Test Item Value Reference Range Interpretation [...] (test code = 1819) 40.0 % GLUCOSE-STAT [id number] 01:19:00 Test Item Value Reference Range Interpretation Comments GLUCOSE RANDOM (BEAKER) (test code 177 mg/dL 70-110 H = 652) POTASSIUM-STAT [id number] 01:18:00 Test Item Value Reference Range Interpretation Comments POTASSIUM (BEAKER) (test code = 4.0 meq/L 3.6-5.5 379) CALCIUM, [id number] 01:17:00 Test Item Value Reference Range Interpretation [...] (test 0.0 % 0.0-5.0 code = 1414) [id number] 20:36:00 Test Item Value Reference Range Interpretation Comments POTASSIUM (BEAKER) (test code = 4.2 meq/L 3.5-5.1 379) [id number] 20:36:00 Test Item Value Reference Range Interpretation Comments MAGNESIUM (BEAKER) (test code = 1.8 mg/dL 1.6-2.6 627) [id number] 20:36:00 Test Item Value Reference Range Interpretation Comments PHOSPHORUS (BEAKER) (test code = 3.5 mg/dL 2.3-4.7 604) LACTIC ACID, ARTERIAL, WHOLE [id number] 20:33:00 Test Item Value Reference Range Interpretation Comments LACTATE BLOOD ARTERIAL (2) 0.8 mmol/L 0.5-2.2 (BEAKER) (test code = 2874) Effective 01/04/2016: Units/Reference Range ChangeNew: 0.5-2.2 mmol/L Previous: 5-20 mg/dLSpecimen slightly ictericBLOOD GAS, [id number] 20:20:00 Test Item Value Reference Range Interpretation [...] (test code = 1819) 40.0 % GLUCOSE-STAT [id number] 20:20:00 Test Item Value Reference Range Interpretation Comments GLUCOSE RANDOM (BEAKER) (test code 180 mg/dL 70-110 H = 652) [id number] 18:34:00 Test Item Value Reference Range Interpretation Comments GLUCOSE RANDOM (BEAKER) (test code 218 mg/dL 70-105 H = 652) BLOOD GAS, [id number] 18:18:00 Test Item Value Reference Range Interpretation [...] (BEAKER) (test code = 1819) 40.0 % [id number] 17:12:00 Test Item Value Reference Range Interpretation Comments PARTIAL THROMBOPLASTIN TIME 54.1 seconds 22.5-36.0 H (BEAKER) (test code = 760) [id number] 17:12:00 Test Item Value Reference Range Interpretation Comments FIBRINOGEN LEVEL (BEAKER) (test 285 mg/dl 225-434 code = 658) PROTHROMBIN [id number] 17:10:00 Test Item Value Reference Range Interpretation [...] ChangeNew: 0.5-2.2 mmol/L Previous: 5-20 mg/dLSpecimen slightly [id number] 17:01:00 Test Item Value Reference Range Interpretation Comments POTASSIUM (BEAKER) (test code = 4.5 meq/L 3.5-5.1 379) [id number] 17:01:00 Test Item Value Reference Range Interpretation Comments GLUCOSE RANDOM (BEAKER) (test code 239 mg/dL 70-105 H = 652) PLATELET [id number] 16:46:00 Test Item Value Reference Range Interpretation Comments PLATELET COUNT (BEAKER) (test code 86 K/CU MM 150-450 L = 756) BLOOD GAS, [id number] 16:36:00 Test Item Value Reference Range Interpretation [...] (test 37.0 C code = 1818) CALCIUM, [id number] 16:36:00 Test Item Value Reference Range Interpretation Comments CALCIUM IONIZED (BEAKER) (test 1.08 mmol/L 1.12-1.27 L code = 698) PH, BLOOD (BEAKER) (test code = 7.46 1810) [id number] 15:00:00 Test Item Value Reference Range Interpretation Comments POTASSIUM (BEAKER) (test code = 4.7 meq/L 3.5-5.1 379) [id number] 15:00:00 Test Item Value Reference Range Interpretation Comments GLUCOSE RANDOM (BEAKER) (test code 210 mg/dL 70-105 H = 652) BLOOD GAS, [id number] 14:42:00 Test Item Value Reference Range Interpretation [...] 40.0 % RAD, CHEST, 1 VIEW, NON [id number] 14:41:00Reason for exam:->chest tube insertionFINAL REPORT CHEST [...] [place] Verified Date/Time: 01/12/2018 14:41:22 Reading Location: [facility] C0[facility] Transitional Reading Room MBOELASTOGRAPH (TEG)2018-01-12 12:43:00 Test [...] (test 0.0 % 0.0-5.0 code = 1414) [id number] 11:23:00 Test Item Value Reference Range Interpretation [...] exclusion of thrombosis is within 95-100% range. [id number] 10:10:00 Test Item Value Reference Range Interpretation Comments MAGNESIUM (BEAKER) 2.1 mg/dL 1.6-2.6 Specimen slightly (test code = 627) hemolyzed [id number] 10:10:00 Test Item Value Reference Range Interpretation Comments PHOSPHORUS (BEAKER) 4.2 mg/dL 2.3-4.7 Specimen slightly (test code = 604) hemolyzed [id number] 10:10:00 Test Item Value Reference Range Interpretation Comments POTASSIUM (BEAKER) 5.0 meq/L 3.5-5.1 Specimen slightly (test code = 379) hemolyzed [id number] 10:10:00 Test Item Value Reference Range Interpretation Comments GLUCOSE RANDOM (BEAKER) (test code 204 mg/dL 70-105 H = 652) [id number] 10:07:00 Test Item Value Reference Range Interpretation Comments FIBRINOGEN LEVEL (BEAKER) (test 251 mg/dl 225-434 code = 658) ANTITHROMBIN [id number] 10:04:00 Test Item Value Reference Range Interpretation Comments ANTITHROMBIN III ACTIVITY (BEAKER) 46.0 % 80.0-120.0 L (test code = 711) [id number] 09:58:00 Test Item Value Reference Range Interpretation Comments PARTIAL THROMBOPLASTIN TIME 59.8 seconds 22.5-36.0 H (BEAKER) (test code = 760) PROTHROMBIN [id number] 09:57:00 Test Item Value Reference Range Interpretation Comments PROTIME (BEAKER) (test code = 19.3 seconds 11.7-14.7 H 759) INR (BEAKER) (test code = 370) 1.6 <=5.9 RECOMMENDED COUMADIN/WARFARIN INR THERAPY RANGESSTANDARD DOSE: 2.0 - 3.0 Includes: PROPHYLAXIS forvenous thrombosis, systemic embolization; TREATMENT for venous thrombosis and/or pulmonary embolus.HIGH RISK: Target INR is 2.5-3.5 for patients with mechanical heart valves.PLATELET [id number] 09:49:00 Test Item Value Reference Range Interpretation Comments PLATELET COUNT (BEAKER) (test code 94 K/CU MM 150-450 L = 756) BLOOD GAS, [id number] 09:47:00 Test Item Value Reference Range Interpretation [...] (test code = 1819) 40.0 % CALCIUM, [id number] 09:46:00 Test Item Value Reference Range Interpretation Comments CALCIUM IONIZED (BEAKER) (test 1.12 mmol/L 1.12-1.27 code = 698) PH, BLOOD (BEAKER) (test code = 7.47 4720) HEPARIN ASSAY - [id number] 08:21:00 Test Item Value Reference Range Interpretation Comments UNFRACTIONATED HEPARIN-ANTI 10A < u/ml 0.30-0.70 L (BEAKER) (test code = 1606) Recommendations for Monitoring Unfractionated Heparin Therapeutic Range: 0.3- 0.7 u/mL with continuous IV infusionLACTATE DEHYDROGENASE (LDH)2018-01-12 07:40:00 Test Item Value Reference Range Interpretation Comments LACTATE DEHYDROGENASE (BEAKER) (test 3247 U/L 125-220 H code = 635) [id number] 07:38:00 Test Item Value Reference Range Interpretation Comments MAGNESIUM (BEAKER) (test code = 2.3 mg/dL 1.6-2.6 627) [id number] 07:38:00 Test Item Value Reference Range Interpretation Comments GLUCOSE RANDOM (BEAKER) (test code 217 mg/dL 70-105 H = 652) LACTIC ACID, ARTERIAL, WHOLE [id number] 07:27:00 Test Item Value Reference Range Interpretation Comments LACTATE BLOOD ARTERIAL (2) 1.4 mmol/L 0.5-2.2 (BEAKER) (test code = 2874) Effective 01/04/2016: Units/Reference Range ChangeNew: 0.5-2.2 mmol/L Previous: 5-20 mg/dLSpecimen slightly ictericGLUCOSE-STAT [id number] 06:55:00 Test Item Value Reference Range Interpretation Comments GLUCOSE RANDOM (BEAKER) (test code 212 mg/dL 70-110 H = 652) BLOOD GAS, [id number] 06:55:00 Test Item Value Reference Range Interpretation [...] (test code = 1819) 40.0 % POTASSIUM-STAT [id number] 06:52:00 Test Item Value Reference Range Interpretation Comments POTASSIUM (BEAKER) (test code = 4.8 meq/L 3.6-5.5 379) BLOOD GAS, [id number] 06:43:00 Test Item Value Reference Range Interpretation [...] 100.0 % RAD, CHEST, 1 VIEW, NON [id number] 06:14:00Reason for exam:- >impella/ECMO/intubationShould this be performed [...] [place] Verified Date/Time: 01/12/2018 06:14:29 Reading Location: [facility] C013T Transitional Reading Room LACTATE DEHYDROGENASE (LDH)2018-01-12 05:03:00 Test Item Value Reference Range Interpretation Comments LACTATE DEHYDROGENASE (BEAKER) (test 3014 U/L 125-220 H code = 635) HEPATIC FUNCTION [id number] 05:03:00 Test Item Value Reference Range Interpretation [...] 1544 U/L 6-55 H 347) Specimen slightly [id number] 05:01:00 Test Item Value Reference Range Interpretation Comments PHOSPHORUS (BEAKER) (test code = 5.0 mg/dL 2.3-4.7 H 604) [id number] 05:01:00 Test Item Value Reference Range Interpretation Comments MAGNESIUM (BEAKER) (test code = 2.1 mg/dL 1.6-2.6 627) [id number] 05:01:00 Test Item Value Reference Range Interpretation Comments CALCIUM (BEAKER) (test code = 697) 8.5 mg/dL 8.4-10.2 BASIC METABOLIC [id number] 05:01:00 Test Item Value Reference Range Interpretation [...] TS. Specimen slightly ictericLACTIC ACID, ARTERIAL, WHOLE [id number] 04:42:00 Test Item Value Reference Range Interpretation Comments LACTATE BLOOD ARTERIAL (2) 1.5 mmol/L 0.5-2.2 (BEAKER) (test code = 2874) Effective 01/04/2016: Units/Reference Range ChangeNew: 0.5-2.2 mmol/L Previous: 5-20 mg/dLSpecimen slightly [id number] 04:38:00 Test Item Value Reference Range Interpretation Comments FIBRINOGEN LEVEL (BEAKER) (test 252 mg/dl 225-434 code = 658) [id number] 04:38:00 Test Item Value Reference Range Interpretation Comments PARTIAL THROMBOPLASTIN TIME 54.6 seconds 22.5-36.0 H (BEAKER) (test code = 760) CBC W/PLT COUNT & AUTO [id number] 04:37:00 Test Item Value Reference Range Interpretation [...] PERCENT (BEAKER) (test code = 2801) PROTHROMBIN [id number] 04:37:00 Test Item Value Reference Range Interpretation Comments PROTIME (BEAKER) (test code = 19.9 seconds 11.7-14.7 H 759) INR (BEAKER) (test code = 370) 1.7 <=5.9 RECOMMENDED COUMADIN/WARFARIN INR THERAPY RANGESSTANDARD DOSE: 2.0 - 3.0 Includes: PROPHYLAXIS forvenous thrombosis, systemic embolization; TREATMENT for venous thrombosis and/or pulmonary embolus.HIGH RISK: Target INR is 2.5-3.5 for patients with mechanical heart valves.CALCIUM, [id number] 04:31:00 Test Item Value Reference Range Interpretation Comments CALCIUM IONIZED (BEAKER) (test 1.12 mmol/L 1.12-1.27 code = 698) PH, BLOOD (BEAKER) (test code = 7.42 1810) BLOOD GAS, [id number] 04:30:00 Test Item Value Reference Range Interpretation [...] (test code = 1819) 40.0 % PLATELET [id number] 04:23:00 Test Item Value Reference Range Interpretation Comments PLATELET COUNT (BEAKER) (test 110 K/CU MM 150-450 L code = 756) OXYGEN SATURATION, [id number] 04:14:00 Test Item Value Reference Range Interpretation Comments O2 SATURATION (MEASURED) (BEAKER) 79.7 % (test code = 1455) [id number] 02:54:00 Test Item Value Reference Range Interpretation Comments PARTIAL THROMBOPLASTIN TIME 134.3 seconds 22.5-36.0 H (BEAKER) (test code = 760) [id number] 02:25:00 Test Item Value Reference Range Interpretation Comments PARTIAL THROMBOPLASTIN TIME 94.0 seconds 22.5-36.0 H (BEAKER) (test code = 760) BLOOD GAS, [id number] 01:56:00 Test Item Value Reference Range Interpretation [...] (test code = 1819) 40.0 % GLUCOSE-STAT [id number] 01:53:00 Test Item Value Reference Range Interpretation Comments GLUCOSE RANDOM (BEAKER) (test code 201 mg/dL 70-110 H = 652) POTASSIUM-STAT [id number] 01:52:00 Test Item Value Reference Range Interpretation Comments POTASSIUM (BEAKER) (test code = 4.9 meq/L 3.6-5.5 379) LACTIC ACID, ARTERIAL, WHOLE [id number] 01:18:00 Test Item Value Reference Range Interpretation Comments LACTATE BLOOD ARTERIAL (2) 2.0 mmol/L 0.5-2.2 (BEAKER) (test code = 2874) Effective 01/04/2016: Units/Reference Range ChangeNew: 0.5-2.2 mmol/L Previous: 5-20 mg/dLSpecimen slightly [id number] 01:18:00 Test Item Value Reference Range Interpretation Comments POTASSIUM (BEAKER) (test code = 5.1 meq/L 3.5-5.1 379) [id number] 01:18:00 Test Item Value Reference Range Interpretation Comments GLUCOSE RANDOM (BEAKER) (test code 194 mg/dL 70-105 H = 652) PROTHROMBIN [id number] 01:15:00 Test Item Value Reference Range Interpretation Comments PROTIME (BEAKER) (test code = 21.2 seconds 11.7-14.7 H 759) INR (BEAKER) (test code = 370) 1.8 <=5.9 RECOMMENDED COUMADIN/WARFARIN INR THERAPY RANGESSTANDARD DOSE: 2.0 - 3.0 Includes: PROPHYLAXIS forvenous thrombosis, systemic embolization; TREATMENT for venous thrombosis and/or pulmonary embolus.HIGH RISK: Target INR is 2.5-3.5 for patients with mechanical heart valves.[id number] 01:15:00 Test Item Value Reference Range Interpretation Comments FIBRINOGEN LEVEL (BEAKER) (test 233 mg/dl 225-434 code = 658) PLATELET [id number] 01:01:00 Test Item Value Reference Range Interpretation Comments PLATELET COUNT (BEAKER) (test code 84 K/CU MM 150-450 L = 756) BLOOD GAS, [id number] 01:00:00 Test Item Value Reference Range Interpretation [...] (test code = 1819) 40.0 % CALCIUM, [id number] 01:00:00 Test Item Value Reference Range Interpretation [...] 0.0-5.0 (BEAKER) (test code = 1414) GLUCOSE-STAT [id number] 23:53:00 Test Item Value Reference Range Interpretation Comments GLUCOSE RANDOM (BEAKER) (test code 182 mg/dL 70-110 H = 652) BLOOD GAS, [id number] 23:52:00 Test Item Value Reference Range Interpretation [...] FIO2 (BEAKER) (test code = 1819) 40 [id number] 23:05:00 Test Item Value Reference Range Interpretation Comments PARTIAL THROMBOPLASTIN TIME > seconds 22.5-36.0 HH (BEAKER) (test code = 760) BLOOD GAS, [id number] 23:01:00 Test Item Value Reference Range Interpretation [...] (BEAKER) (test code = 1819) 100.0 % [id number] 22:46:00 Test Item Value Reference Range Interpretation Comments FIBRINOGEN LEVEL (BEAKER) (test 223 mg/dl 225-434 L code = 658) PROTHROMBIN [id number] 22:45:00 Test Item Value Reference Range Interpretation Comments PROTIME (BEAKER) (test code = 23.0 seconds 11.7-14.7 H 759) INR (BEAKER) (test code = 370) 2.0 <=5.9 RECOMMENDED COUMADIN/WARFARIN INR THERAPY RANGESSTANDARD DOSE: 2.0 - 3.0 Includes: PROPHYLAXIS forvenous thrombosis, systemic embolization; TREATMENT for venous thrombosis and/or pulmonary embolus.HIGH RISK: Target INR is 2.5-3.5 for patients with mechanical heart valves.BLOOD GAS, [id number] 22:22:00 Test Item Value Reference Range Interpretation [...] (test code = 1819) 40.0 % CALCIUM, [id number] 22:21:00 Test Item Value Reference Range Interpretation Comments CALCIUM IONIZED (BEAKER) (test 1.05 mmol/L 1.12-1.27 L code = 698) PH, BLOOD (BEAKER) (test code = 7.67 1810) PLATELET [id number] 22:21:00 Test Item Value Reference Range Interpretation Comments PLATELET COUNT (BEAKER) (test code 71 K/CU MM 150-450 L = 756) GLUCOSE-STAT [id number] 22:20:00 Test Item Value Reference Range Interpretation Comments GLUCOSE RANDOM (BEAKER) (test code 189 mg/dL 70-110 H = 652) POTASSIUM-STAT [id number] 22:19:00 Test Item Value Reference Range Interpretation [...] 2133 U/L 125-220 H code = 635) [id number] 20:55:00 Test Item Value Reference Range Interpretation Comments POTASSIUM (BEAKER) (test code = 5.4 meq/L 3.5-5.1 H 379) [id number] 20:55:00 Test Item Value Reference Range Interpretation Comments MAGNESIUM (BEAKER) (test code = 1.6 mg/dL 1.6-2.6 627) [id number] 20:55:00 Test Item Value Reference Range Interpretation Comments PHOSPHORUS (BEAKER) (test code = 2.9 mg/dL 2.3-4.7 604) GLUCOSE-STAT [id number] 20:31:00 Test Item Value Reference Range Interpretation Comments GLUCOSE RANDOM (BEAKER) (test code 166 mg/dL 70-110 H = 652) POTASSIUM-STAT [id number] 20:30:00 Test Item Value Reference Range Interpretation Comments POTASSIUM (BEAKER) (test code = 5.2 meq/L 3.6-5.5 379) BLOOD GAS, [id number] 20:30:00 Test Item Value Reference Range Interpretation [...] code = 1819) 40.0 % OXYGEN SATURATION, [id number] 18:46:00 Test Item Value Reference Range Interpretation Comments O2 SATURATION (MEASURED) (BEAKER) 81.5 % (test code = 1455) RAD, CHEST, 1 VIEW, NON [id number] 18:27:00Reason for exam:->impella/ECMO placementShould this be performed [...] [place] Verified Date/Time: 01/11/2018 18:27:33 Reading Location: [facility] [address] [place] [address] Consult Reading Room [id number] 18:11:00 Test Item Value Reference Range Interpretation Comments PARTIAL THROMBOPLASTIN TIME > seconds 22.5-36.0 HH (BEAKER) (test code = 760) LACTATE DEHYDROGENASE (LDH)2018-01-11 18:09:00 Test Item Value Reference Range Interpretation Comments LACTATE DEHYDROGENASE 1590 U/L 125-220 H Specim en slightly (BEAKER) (test code = hemoly zed 635) BASIC METABOLIC [id number] 18:08:00 Test Item Value Reference Range Interpretation [...] S NOT APPLICABLE FOR DIALYSIS PATIEN TS. [id number] 17:54:00 Test Item Value Reference Range Interpretation Comments MAGNESIUM (BEAKER) 1.8 mg/dL 1.6-2.6 Specimen slightly (test code = 627) hemolyzed [id number] 17:54:00 Test Item Value Reference Range Interpretation Comments PHOSPHORUS (BEAKER) 4.6 mg/dL 2.3-4.7 Specimen slightly (test code = 604) hemolyzed LACTIC ACID, ARTERIAL, WHOLE [id number] 17:53:00 Test Item Value Reference Range Interpretation Comments LACTATE BLOOD 10.8 mmol/L 0.5-2.2 H Specimen sligh tly ARTERIAL (2) (BEAKER) hemoly zed (test code = 2874) Effective 01/04/2016: Units/Reference Range ChangeNew: 0.5-2.2 mmol/L Previous: 5-20 mg/aHL-[id number] 17:46:00 Test Item Value Reference Range Interpretation [...] exclusion of thrombosis is within 95-100% range. [id number] 17:46:00 Test Item Value Reference Range Interpretation Comments FIBRINOGEN LEVEL (BEAKER) (test 201 mg/dl 225-434 L code = 658) PROTHROMBIN [id number] 17:45:00 Test Item Value Reference Range Interpretation Comments PROTIME (BEAKER) (test code = 24.4 seconds 11.7-14.7 H 759) INR (BEAKER) (test code = 370) 2.2 <=5.9 RECOMMENDED COUMADIN/WARFARIN INR THERAPY RANGESSTANDARD DOSE: 2.0 - 3.0 Includes: PROPHYLAXIS forvenous thrombosis, systemic embolization; TREATMENT for venous thrombosis and/or pulmonary embolus.HIGH RISK: Target INR is 2.5-3.5 for patients with mechanical heart valves.BLOOD GAS, [id number] 17:44:00 Test Item Value Reference Range Interpretation [...] code = 1819) 40.0 % SODIUM NA-STAT [id number] 17:44:00 Test Item Value Reference Range Interpretation Comments SODIUM (BEAKER) (test code = 381) 134 meq/L 135-148 L POTASSIUM-STAT [id number] 17:44:00 Test Item Value Reference Range Interpretation Comments POTASSIUM (BEAKER) (test code = 6.2 meq/L 3.6-5.5 HH 379) GLUCOSE-STAT [id number] 17:44:00 Test Item Value Reference Range Interpretation Comments GLUCOSE RANDOM (BEAKER) (test code 147 mg/dL 70-110 H = 652) HGB/HCT (H&H) - STAT [id number] 17:44:00 Test Item Value Reference Range Interpretation Comments HEMOGLOBIN (BEAKER) (test code = 9.9 g/dL 13.0-16.8 L 410) HEMATOCRIT (BEAKER) (test code = 29.0 % 40.0-50.0 L 411) CALCIUM, [id number] 17:41:00 Test Item Value Reference Range Interpretation Comments CALCIUM IONIZED (BEAKER) (test 1.03 mmol/L 1.12-1.27 L code = 698) PH, BLOOD (BEAKER) (test code = 7.52 1810) OXYGEN SATURATION, [id number] 17:39:00 Test Item Value Reference Range Interpretation Comments O2 SATURATION (MEASURED) (BEAKER) 84.5 % (test code = 1455) CBC W/PLT COUNT & AUTO [id number] 17:37:00 Test Item Value Reference Range Interpretation [...] % 0-1 PERCENT (BEAKER) (test code = 2800) [id number] 16:35:00 Test Item Value Reference Range Interpretation Comments ACTIVATED CLOTTING TIME 230 sec TEST ED AT [place] [address] ([facility]) (test code = [place] [address]) [id number] 16:35:00 Test Item Value Reference Range Interpretation Comments ACTIVATED CLOTTING TIME 191 sec TEST ED AT [place] [address] (BEAKER) (test code = [place] [address]) [address] BLOOD GAS, [id number] 16:20:00 Test Item Value Reference Range Interpretation [...] (test code = 1819) 100 BLOOD GAS, [id number] 16:19:00 Test Item Value Reference Range Interpretation [...] drawn from ECMO circuitLACTIC ACID, ARTERIAL, WHOLE [id number] 14:07:00 Test Item Value Reference Range Interpretation Comments LACTATE BLOOD 13.1 mmol/L 0.5-2.2 H Specimen sligh tly ARTERIAL (2) (BEAKER) hemoly zed (test code = 2874) Effective 01/04/2016: Units/Reference Range ChangeNew: 0.5-2.2 mmol/L Previous: 5-20 mg/dLPROTHROMBIN [id number] 14:01:00 Test Item Value Reference Range Interpretation Comments PROTIME (BEAKER) (test code = 20.9 seconds 11.7-14.7 H 759) INR (BEAKER) (test code = 370) 1.8 <=5.9 RECOMMENDED COUMADIN/WARFARIN INR THERAPY RANGESSTANDARD DOSE: 2.0 - 3.0 Includes: PROPHYLAXIS forvenous thrombosis, systemic embolization; TREATMENT for venous thrombosis and/or pulmonary embolus.HIGH RISK: Target INR is 2.5-3.5 for patients with mechanical heart valves.[id number] 14:01:00 Test Item Value Reference Range Interpretation Comments FIBRINOGEN LEVEL (BEAKER) (test 227 mg/dl 225-434 code = 658) PLATELET [id number] 13:54:00 Test Item Value Reference Range Interpretation Comments PLATELET COUNT (BEAKER) (test 115 K/CU MM 150-450 L code = 756) BLOOD GAS, [id number] 13:47:00 Test Item Value Reference Range Interpretation [...] (test code = 1819) 40.0 % GLUCOSE-STAT [id number] 13:47:00 Test Item Value Reference Range Interpretation Comments GLUCOSE RANDOM (BEAKER) (test code 134 mg/dL 70-110 H = 652) [id number] 12:33:00 Test Item Value Reference Range Interpretation Comments POTASSIUM (BEAKER) (test code = 5.6 meq/L 3.5-5.1 H 379) PRN - repeat glucose levels every 1 hour or as specified by insulin titration orders until glucose level is less than 450 mg/[id number] 12:33:00 Test Item Value Reference Range Interpretation Comments GLUCOSE RANDOM (BEAKER) (test code = 43 mg/dL 70-105 L 652) PRN - repeat glucose levels every 1 hour or as specified by insulin titration orders until glucose level is less than 450 mg/dLBASIC METABOLIC [id number] 11:05:00 Test Item Value Reference Range Interpretation [...] until glucose level is less than 450 mg/[id number] 11:05:00 Test Item Value Reference Range Interpretation Comments GLUCOSE RANDOM (BEAKER) (test code = 34 mg/dL 70-105 LL 652) [id number] 10:44:00 Test Item Value Reference Range Interpretation Comments POTASSIUM (BEAKER) (test code = 5.9 meq/L 3.5-5.1 H 379) HEPATIC FUNCTION [id number] 10:44:00 Test Item Value Reference Range Interpretation [...] Previous: 5-20 mg/dLCBC W/PLT COUNT & AUTO [id number] 10:23:00 Test Item Value Reference Range Interpretation [...] (BEAKER) (test code = 2801) BLOOD GAS, [id number] 10:20:00 Test Item Value Reference Range Interpretation [...] (BEAKER) (test code = 1819) 40.0 % [id number] 09:01:00 Test Item Value Reference Range Interpretation Comments POTASSIUM (BEAKER) (test code = 5.9 meq/L 3.5-5.1 H 379) PRN - repeat glucose levels every 1 hour or as specified by insulin titration orders until glucose level is less than 450 mg/[id number] 09:01:00 Test Item Value Reference Range Interpretation Comments MAGNESIUM (BEAKER) (test code = 1.7 mg/dL 1.6-2.6 627) PRN - repeat glucose levels every 1 hour or as specified by insulin titration orders until glucose level is less than 450 mg/[id number] 09:01:00 Test Item Value Reference Range Interpretation Comments PHOSPHORUS (BEAKER) (test code = 4.7 mg/dL 2.3-4.7 604) PRN - repeat glucose levels every 1 hour or as specified by insulin titration orders until glucose level is less than 450 mg/[id number] 09:01:00 Test Item Value Reference Range Interpretation Comments GLUCOSE RANDOM (BEAKER) (test code = 50 mg/dL 70-105 L 652) PRN - repeat glucose levels every 1 hour or as specified by insulin titration orders until glucose level is less than 450 mg/dLCALCIUM, [id number] 08:47:00 Test Item Value Reference Range Interpretation Comments CALCIUM IONIZED (BEAKER) (test 1.24 mmol/L 1.12-1.27 code = 698) PH, BLOOD (BEAKER) (test code = 7.31 1810) [id number] 08:45:00 Test Item Value Reference Range Interpretation Comments PARTIAL THROMBOPLASTIN TIME 53.7 seconds 22.5-36.0 H (BEAKER) (test code = 760) BLOOD GAS, [id number] 08:41:00 Test Item Value Reference Range Interpretation [...] (test code = 1819) 40.0 % PH, [id number] 08:41:00 Test Item Value Reference Range Interpretation Comments PH ARTERIAL (BEAKER) (test code = 383) 7.31 7.35-7.45 L RAD, CHEST, 1 VIEW, NON [id number] 07:31:00Reason for exam:->s/p cardiac surgeryShould this be [...] consolidation and no pneumothorax demonstrated. Signed: Tahir Xie MDReport VerifiedDate/Time: 01/11/2018 07:31:38 Reading Location: [facility] B1 C013X Ortho Consult Reading Room BLOOD [...] code = 1819) 40.0 % BASIC METABOLIC [id number] 06:12:00 Test Item Value Reference Range Interpretation [...] NOT APPLICABLE FOR DIALYSIS PATIEN TS. POCT-GLUCOSE [id number] 05:58:00 Test Item Value Reference Range Interpretation Comments POC-GLUCOSE METER 121 mg/dL 70-110 H TESTED AT [facility] 67[address] (BEAKER) (test code = [place] 1538) [address] POCT-GLUCOSE [id number] 05:58:00 Test Item Value Reference Range Interpretation Comments POC-GLUCOSE METER 66 mg/dL 70-110 L Will Repea t Test/TESTED (BEAKER) (test code = AT [facility] [address] [facility] 7703 0 [id number] 05:51:00 Test Item Value Reference Range Interpretation Comments PHOSPHORUS (BEAKER) (test code = 3.5 mg/dL 2.3-4.7 604) [id number] 05:51:00 Test Item Value Reference Range Interpretation Comments MAGNESIUM (BEAKER) (test code = 1.9 mg/dL 1.6-2.6 627) BLOOD GAS, [id number] 05:47:00 Test Item Value Reference Range Interpretation [...] (test code = 1819) 40.0 % POCT-GLUCOSE [id number] 05:27:00 Test Item Value Reference Range Interpretation Comments POC-GLUCOSE METER 112 mg/dL 70-110 H TESTED AT [place] [address] ([facility]) (test code = [place] [facility] 1538) [address] POCT-GLUCOSE [id number] 05:27:00 Test Item Value Reference Range Interpretation Comments POC-GLUCOSE METER 106 mg/dL 70-110 TESTED AT [place] [address] ([facility]) (test code = [place] [facility] 1538) [address] POCT-GLUCOSE [id number] 05:26:00 Test Item Value Reference Range Interpretation Comments POC-GLUCOSE METER 66 mg/dL 70-110 L TESTED AT [place] [address] ([facility]) (test code = [place] [facility] [address] 1538) LACTIC ACID, ARTERIAL, WHOLE [id number] 04:59:00 Test Item Value Reference Range Interpretation Comments LACTATE BLOOD 12.2 mmol/L 0.5-2.2 H Specimen sligh tly ARTERIAL (2) (BEAKER) hemoly zed (test code = 2874) Effective 01/04/2016: Units/Reference Range ChangeNew: 0.5-2.2 mmol/L Previous: 5-20 mg/dLCALCIUM, [id number] 04:57:00 Test Item Value Reference Range Interpretation Comments CALCIUM IONIZED (BEAKER) (test 1.33 mmol/L 1.12-1.27 H code = 698) PH, BLOOD (BEAKER) (test code = 7.30 1810) BLOOD GAS, [id number] 04:57:00 Test Item Value Reference Range Interpretation [...] code = 1819) 45.0 % OXYGEN SATURATION, [id number] 04:56:00 Test Item Value Reference Range Interpretation Comments O2 SATURATION (MEASURED) (BEAKER) 83.2 % (test code = 1455) CBC W/PLT COUNT & AUTO [id number] 04:56:00 Test Item Value Reference Range Interpretation [...] PERCENT (BEAKER) (test code = 2801) CALCIUM, [id number] 03:38:00 Test Item Value Reference Range Interpretation Comments CALCIUM IONIZED (BEAKER) (test 1.32 mmol/L 1.12-1.27 H code = 698) PH, BLOOD (BEAKER) (test code = 7.29 1810) BLOOD GAS, [id number] 03:36:00 Test Item Value Reference Range Interpretation [...] 1819) 50.0 % HGB/HCT (H&H) - STAT [id number] 03:36:00 Test Item Value Reference Range Interpretation Comments HEMOGLOBIN (BEAKER) (test code = 12.5 g/dL 13.0-16.8 L 410) HEMATOCRIT (BEAKER) (test code = 37.0 % 40.0-50.0 L 411) OXYGEN SATURATION, [id number] 03:35:00 Test Item Value Reference Range Interpretation Comments O2 SATURATION (MEASURED) (BEAKER) 80.3 % (test code = 1455) GLUCOSE-STAT [id number] 03:34:00 Test Item Value Reference Range Interpretation Comments GLUCOSE RANDOM (BEAKER) (test code = 91 mg/dL 70-110 652) SODIUM NA-STAT [id number] 03:34:00 Test Item Value Reference Range Interpretation Comments SODIUM (BEAKER) (test code = 381) 137 meq/L 135-148 POTASSIUM-STAT [id number] 03:34:00 Test Item Value Reference Range Interpretation Comments POTASSIUM (BEAKER) (test code = 4.6 meq/L 3.6-5.5 379) BLOOD GAS, [id number] 03:01:00 Test Item Value Reference Range Interpretation [...] 1819) 50.0 % HGB/HCT (H&H) - STAT [id number] 03:01:00 Test Item Value Reference Range Interpretation Comments HEMOGLOBIN (BEAKER) (test code = 12.0 g/dL 13.0-16.8 L 410) HEMATOCRIT (BEAKER) (test code = 35.0 % 40.0-50.0 L 411) POTASSIUM-STAT [id number] 03:00:00 Test Item Value Reference Range Interpretation Comments POTASSIUM (BEAKER) (test code = 5.0 meq/L 3.6-5.5 379) GLUCOSE-STAT [id number] 03:00:00 Test Item Value Reference Range Interpretation Comments GLUCOSE RANDOM (BEAKER) (test code 102 mg/dL 70-110 = 652) SODIUM NA-STAT [id number] 03:00:00 Test Item Value Reference Range Interpretation Comments SODIUM (BEAKER) (test code = 381) 140 meq/L 135-148 LACTIC ACID, ARTERIAL, WHOLE [id number] 01:53:00 Test Item Value Reference Range Interpretation Comments LACTATE BLOOD 9.4 mmol/L 0.5-2.2 H Specimen sligh tly ARTERIAL (2) (BEAKER) hemoly zed (test code = 2874) Effective 01/04/2016: Units/Reference Range ChangeNew: 0.5-2.2 mmol/L Previous: 5-20 mg/dLGLUCOSE-STAT [id number] 01:27:00 Test Item Value Reference Range Interpretation Comments GLUCOSE RANDOM (BEAKER) (test code = 99 mg/dL 70-110 652) BLOOD GAS, [id number] 01:27:00 Test Item Value Reference Range Interpretation [...] 1819) 100.0 % HGB/HCT (H&H) - STAT [id number] 01:27:00 Test Item Value Reference Range Interpretation Comments HEMOGLOBIN (BEAKER) (test code = 12.7 g/dL 13.0-16.8 L 410) HEMATOCRIT (BEAKER) (test code = 37.0 % 40.0-50.0 L 411) SODIUM NA-STAT [id number] 01:26:00 Test Item Value Reference Range Interpretation Comments SODIUM (BEAKER) (test code = 381) 141 meq/L 135-148 POTASSIUM-STAT [id number] 01:26:00 Test Item Value Reference Range Interpretation Comments POTASSIUM (BEAKER) (test code = 3.6 meq/L 3.6-5.5 379) [id number] 00:38:00 Test Item Value Reference Range Interpretation Comments PARTIAL THROMBOPLASTIN TIME 47.4 seconds 22.5-36.0 H (BEAKER) (test code = 760) [id number] 00:35:00 Test Item Value Reference Range Interpretation Comments POTASSIUM (BEAKER) 3.5 meq/L 3.5-5.1 Specimen slightly (test code = 379) hemolyzed CALCIUM, [id number] 00:25:00 Test Item Value Reference Range Interpretation [...] = 1414) RAD, CHEST, 1 VIEW, NON [id number] 22:36:00Reason for exam:->s/p BronchoscopyFINAL REPORT CLINICAL INDICATION: Post bronchoscopy Comparison: Same date ba1258 hours There is improved aeration of the right upper lobe. No pneumothorax is present. Hazy opacity in the right upper lobe and in the retrocardiac lower lungs may reflect atelectasis but pneumonitis should be excluded clinically. The cardiomediastinal contours are stable. Support lines are stable. Signed: Kellen Parra MDReport Verified Date/Time: 01/10/2018 22:36:29 Reading Location: [address] Reading Room C METABOLIC [id number] 22:01:00 Test Item Value Reference Range Interpretation [...] S NOT APPLICABLE FOR DIALYSIS PATIEN TS. [id number] 22:00:00 Test Item Value Reference Range Interpretation Comments MAGNESIUM (BEAKER) 2.4 mg/dL 1.6-2.6 Specimen slightly (test code = 627) hemolyzed [id number] 22:00:00 Test Item Value Reference Range Interpretation Comments PHOSPHORUS (BEAKER) 3.2 mg/dL 2.3-4.7 Specimen slightly (test code = 604) hemolyzed LACTIC ACID, ARTERIAL, WHOLE [id number] 21:57:00 Test Item Value Reference Range Interpretation Comments LACTATE BLOOD 10.2 mmol/L 0.5-2.2 H Specimen sligh tly ARTERIAL (2) (BEAKER) hemoly zed (test code = 2874) Effective 01/04/2016: Units/Reference Range ChangeNew: 0.5-2.2 mmol/L Previous: 5-20 mg/dLCBC W/PLT COUNT & AUTO [id number] 21:51:00 Test Item Value Reference Range Interpretation [...] 0-1 PERCENT (BEAKER) (test code = 2801) [id number] 21:49:00 Test Item Value Reference Range Interpretation Comments PARTIAL THROMBOPLASTIN TIME 41.2 seconds 22.5-36.0 H (BEAKER) (test code = 760) PROTHROMBIN [id number] 21:48:00 Test Item Value Reference Range Interpretation Comments PROTIME (BEAKER) (test code = 19.8 seconds 11.7-14.7 H 759) INR (BEAKER) (test code = 370) 1.7 <=5.9 RECOMMENDED COUMADIN/WARFARIN INR THERAPY RANGESSTANDARD DOSE: 2.0 - 3.0 Includes: PROPHYLAXIS forvenous thrombosis, systemic embolization; TREATMENT for venous thrombosis and/or pulmonary embolus.HIGH RISK: Target INR is 2.5-3.5 for patients with mechanical heart valves.[id number] 21:48:00 Test Item Value Reference Range Interpretation Comments FIBRINOGEN LEVEL (BEAKER) (test 221 mg/dl 225-434 L code = 658) CALCIUM, [id number] 21:33:00 Test Item Value Reference Range Interpretation Comments CALCIUM IONIZED (BEAKER) (test 1.54 mmol/L 1.12-1.27 H code = 698) PH, BLOOD (BEAKER) (test code = 7.33 1810) OXYGEN SATURATION, [id number] 21:33:00 Test Item Value Reference Range Interpretation Comments O2 SATURATION (MEASURED) (BEAKER) 67.1 % (test code = 1455) GLUCOSE-STAT [id number] 21:32:00 Test Item Value Reference Range Interpretation Comments GLUCOSE RANDOM (BEAKER) (test code = 98 mg/dL 70-110 652) SODIUM NA-STAT [id number] 21:32:00 Test Item Value Reference Range Interpretation Comments SODIUM (BEAKER) (test code = 381) 139 meq/L 135-148 POTASSIUM-STAT [id number] 21:32:00 Test Item Value Reference Range Interpretation Comments POTASSIUM (BEAKER) (test code = 3.6 meq/L 3.6-5.5 379) BLOOD GAS, [id number] 21:32:00 Test Item Value Reference Range Interpretation [...] 1819) 60.0 % HGB/HCT (H&H) - STAT [id number] 21:32:00 Test Item Value Reference Range Interpretation Comments HEMOGLOBIN (BEAKER) (test code = 8.2 g/dL 13.0-16.8 L 410) HEMATOCRIT (BEAKER) (test code = 24.0 % 40.0-50.0 L 411) RAD, CHEST, 1 VIEW, NON [id number] 21:32:00Reason for exam:->s/p cardiac surgeryShould this be [...] the level of the clavicles. Right IJ Brusett-Moni catheter terminatesin the distal right pulmonary artery. The soft tissues and osseous structures are intact. IMPRESSION: Postoperative changes with right upper lobe collapse, likely secondary to mucous plugging. Supporting lines and tubes as described above. Note position of the Brusett-Moni catheter. Signed: Nigel Musa [facility] Verified Date/Time: 01/10/2018 21:32:31 Reading Location: [facility] B1 C013W Consult Reading Room THROMBOELASTOGRAPH (TEG)2018-01-10 [...] 55.0-65.0 L (test code = 1413) CALCIUM, [id number] 20:42:00 Test Item Value Reference Range Interpretation Comments CALCIUM IONIZED (BEAKER) (test 1.41 mmol/L 1.12-1.27 H code = 698) PH, BLOOD (BEAKER) (test code = 7.41 1810) SODIUM NA-STAT [id number] 20:41:00 Test Item Value Reference Range Interpretation Comments SODIUM (BEAKER) (test code = 381) 138 meq/L 135-148 POTASSIUM-STAT [id number] 20:41:00 Test Item Value Reference Range Interpretation Comments POTASSIUM (BEAKER) (test code = 3.7 meq/L 3.6-5.5 379) BLOOD GAS, [id number] 20:41:00 Test Item Value Reference Range Interpretation [...] (test code = 1819) 100.0 % GLUCOSE-STAT [id number] 20:41:00 Test Item Value Reference Range Interpretation Comments GLUCOSE RANDOM (BEAKER) (test code 120 mg/dL 70-110 H = 652) HGB/HCT (H&H) - STAT [id number] 20:41:00 Test Item Value Reference Range Interpretation Comments HEMOGLOBIN ([facility]) (test code = 7.8 g/dL 13.0-16.8 L 410) HEMATOCRIT ([facility]) (test code = 23.0 % 40.0-50.0 L 411) [id number] 20:23:00 Test Item Value Reference Range Interpretation Comments FIBRINOGEN LEVEL ([facility]) (test 239 mg/dl 225-434 code = 658) [id number] 20:23:00 Test Item Value Reference Range Interpretation Comments PARTIAL THROMBOPLASTIN TIME 38.6 seconds 22.5-36.0 H ([facility]) (test code = 760) PROTHROMBIN [id number] 20:22:00 Test Item Value Reference Range Interpretation Comments PROTIME ([facility]) (test code = 21.6 seconds 11.7-14.7 H 759) INR ([facility]) (test code = 370) 1.9 <=5.9 RECOMMENDED COUMADIN/WARFARIN INR THERAPY RANGESSTANDARD DOSE: 2.0 - 3.0 Includes: PROPHYLAXIS forvenous thrombosis, systemic embolization; TREATMENT for venous thrombosis and/or pulmonary embolus.HIGH RISK: Target INR is 2.5-3.5 for patients with mechanical heart valves.[id number] 20:16:00 Test Item Value Reference Range Interpretation Comments ACTIVATED CLOTTING TIME 114 sec TEST ED AT [place] [address] ([facility]) (test code = [place] [address]) [address] [id number] 20:16:00 Test Item Value Reference Range Interpretation Comments ACTIVATED CLOTTING TIME 499 sec TEST ED AT [place] [address] ([facility]) (test code = [place] [address]) [address] [id number] 20:16:00 Test Item Value Reference Range Interpretation Comments ACTIVATED CLOTTING TIME 483 sec TEST ED AT [place] [address] ([facility]) (test code = [place] [address]) [address] [id number] 20:16:00 Test Item Value Reference Range Interpretation Comments ACTIVATED CLOTTING TIME 538 sec TEST ED AT [place] [address] ([facility]) (test code = [place] [address]) [address] [id number] 20:16:00 Test Item Value Reference Range Interpretation Comments ACTIVATED CLOTTING TIME 615 sec TEST ED AT [place] [address] ([facility]) (test code = [place] [address]) [address] [id number] 20:16:00 Test Item Value Reference Range Interpretation Comments ACTIVATED CLOTTING TIME 692 sec TEST ED AT [place] [address] ([facility]) (test code = [place] [address]) [address] [id number] 20:16:00 Test Item Value Reference Range Interpretation Comments ACTIVATED CLOTTING TIME 428 sec TEST ED AT [place] [address] ([facility]) (test code = [place] [address]) [address] [id number] 20:16:00 Test Item Value Reference Range Interpretation Comments ACTIVATED CLOTTING TIME 373 sec TEST ED AT [place] [address] ([facility]) (test code = [place] [address]) [address] [id number] 20:16:00 Test Item Value Reference Range Interpretation Comments ACTIVATED CLOTTING TIME 455 sec TEST ED AT [place] [address] ([facility]) (test code = [place] [address]) [address] [id number] 20:16:00 Test Item Value Reference Range Interpretation Comments ACTIVATED CLOTTING TIME 494 sec TEST ED AT [place] [address] ([facility]) (test code = [place] [address]) [address] [id number] 20:16:00 Test Item Value Reference Range Interpretation Comments ACTIVATED CLOTTING TIME 527 sec TEST ED AT [place] [address] ([facility]) (test code = [place] [address]) [address] [id number] 20:16:00 Test Item Value Reference Range Interpretation Comments ACTIVATED CLOTTING TIME 610 sec TEST ED AT [place] [address] ([facility]) (test code = [place] [address]) [address] [id number] 20:16:00 Test Item Value Reference Range Interpretation Comments ACTIVATED CLOTTING TIME 576 sec TEST ED AT [place] [address] ([facility]) (test code = [place] [address]) [address] [id number] 20:16:00 Test Item Value Reference Range Interpretation Comments ACTIVATED CLOTTING TIME 384 sec TEST ED AT [place] [address] ([facility]) (test code = [place] [address]) [address] PLATELET [id number] 20:08:00 Test Item Value Reference Range Interpretation [...] 0.0-5.0 (BEAKER) (test code = 1414) CALCIUM, [id number] 19:59:00 Test Item Value Reference Range Interpretation Comments CALCIUM IONIZED (BEAKER) (test 1.39 mmol/L 1.12-1.27 H code = 698) PH, BLOOD (BEAKER) (test code = 7.37 1810) BLOOD GAS, [id number] 19:58:00 Test Item Value Reference Range Interpretation [...] (test code = 1819) 100.0 % GLUCOSE-STAT [id number] 19:58:00 Test Item Value Reference Range Interpretation Comments GLUCOSE RANDOM (BEAKER) (test code 143 mg/dL 70-110 H = 652) HGB/HCT (H&H) - STAT [id number] 19:58:00 Test Item Value Reference Range Interpretation Comments HEMOGLOBIN (BEAKER) (test code = 8.7 g/dL 13.0-16.8 L 410) HEMATOCRIT (BEAKER) (test code = 26.0 % 40.0-50.0 L 411) SODIUM NA-STAT [id number] 19:57:00 Test Item Value Reference Range Interpretation Comments SODIUM (BEAKER) (test code = 381) 140 meq/L 135-148 POTASSIUM-STAT [id number] 19:57:00 Test Item Value Reference Range Interpretation Comments POTASSIUM (BEAKER) (test code = 3.9 meq/L 3.6-5.5 379) [id number] 19:29:00 Test Item Value Reference Range Interpretation Comments PARTIAL THROMBOPLASTIN TIME > seconds 22.5-36.0 HH (BEAKER) (test code = 760) [id number] 19:16:00 Test Item Value Reference Range Interpretation Comments FIBRINOGEN LEVEL (BEAKER) (test 271 mg/dl 225-434 code = 658) PROTHROMBIN [id number] 19:15:00 Test Item Value Reference Range Interpretation Comments PROTIME (BEAKER) (test code = 21.3 seconds 11.7-14.7 H 759) INR (BEAKER) (test code = 370) 1.8 <=5.9 RECOMMENDED COUMADIN/WARFARIN INR THERAPY RANGESSTANDARD DOSE: 2.0 - 3.0 Includes: PROPHYLAXIS forvenous thrombosis, systemic embolization; TREATMENT for venous thrombosis and/or pulmonary embolus.HIGH RISK: Target INR is 2.5-3.5 for patients with mechanical heart valves.PLATELET [id number] 19:06:00 Test Item Value Reference Range Interpretation Comments PLATELET COUNT (BEAKER) (test code 54 K/CU MM 150-450 L = 756) BLOOD GAS, [id number] 18:49:00 Test Item Value Reference Range Interpretation [...] 1819) 100.0 % HGB/HCT (H&H) - STAT [id number] 18:44:00 Test Item Value Reference Range Interpretation Comments HEMOGLOBIN (BEAKER) (test code = 10.1 g/dL 13.0-16.8 L 410) HEMATOCRIT (BEAKER) (test code = 30.0 % 40.0-50.0 L 411) SODIUM NA-STAT [id number] 18:43:00 Test Item Value Reference Range Interpretation Comments SODIUM (BEAKER) (test code = 381) 137 meq/L 135-148 POTASSIUM-STAT [id number] 18:43:00 Test Item Value Reference Range Interpretation Comments POTASSIUM (BEAKER) (test code = 5.0 meq/L 3.6-5.5 379) GLUCOSE-STAT [id number] 18:43:00 Test Item Value Reference Range Interpretation Comments GLUCOSE RANDOM (BEAKER) (test code 187 mg/dL 70-110 H = 652) SODIUM NA-STAT [id number] 18:22:00 Test Item Value Reference Range Interpretation Comments SODIUM (BEAKER) (test code = 381) 140 meq/L 135-148 POTASSIUM-STAT [id number] 18:22:00 Test Item Value Reference Range Interpretation Comments POTASSIUM (BEAKER) (test code = 4.7 meq/L 3.6-5.5 379) BLOOD GAS, [id number] 18:22:00 Test Item Value Reference Range Interpretation [...] (test code = 1819) 60.0 % GLUCOSE-STAT [id number] 18:22:00 Test Item Value Reference Range Interpretation Comments GLUCOSE RANDOM (BEAKER) (test code 209 mg/dL 70-110 H = 652) HGB/HCT (H&H) - STAT [id number] 18:22:00 Test Item Value Reference Range Interpretation Comments HEMOGLOBIN (BEAKER) (test code = 10.2 g/dL 13.0-16.8 L 410) HEMATOCRIT (BEAKER) (test code = 30.0 % 40.0-50.0 L 411) BLOOD GAS, [id number] 17:57:00 Test Item Value Reference Range Interpretation [...] (test code = 1819) 65.0 % GLUCOSE-STAT [id number] 17:57:00 Test Item Value Reference Range Interpretation Comments GLUCOSE RANDOM (BEAKER) (test code 198 mg/dL 70-110 H = 652) HGB/HCT (H&H) - STAT [id number] 17:57:00 Test Item Value Reference Range Interpretation Comments HEMOGLOBIN (BEAKER) (test code = 10.3 g/dL 13.0-16.8 L 410) HEMATOCRIT (BEAKER) (test code = 30.0 % 40.0-50.0 L 411) SODIUM NA-STAT [id number] 17:56:00 Test Item Value Reference Range Interpretation Comments SODIUM (BEAKER) (test code = 381) 138 meq/L 135-148 POTASSIUM-STAT [id number] 17:56:00 Test Item Value Reference Range Interpretation Comments POTASSIUM (BEAKER) (test code = 4.7 meq/L 3.6-5.5 379) BLOOD GAS, [id number] 17:28:00 Test Item Value Reference Range Interpretation [...] (test code = 1819) 65.0 % GLUCOSE-STAT [id number] 17:28:00 Test Item Value Reference Range Interpretation Comments GLUCOSE RANDOM (BEAKER) (test code 223 mg/dL 70-110 H = 652) HGB/HCT (H&H) - STAT [id number] 17:28:00 Test Item Value Reference Range Interpretation Comments HEMOGLOBIN (BEAKER) (test code = 10.1 g/dL 13.0-16.8 L 410) HEMATOCRIT (BEAKER) (test code = 30.0 % 40.0-50.0 L 411) SODIUM NA-STAT [id number] 17:27:00 Test Item Value Reference Range Interpretation Comments SODIUM (BEAKER) (test code = 381) 140 meq/L 135-148 POTASSIUM-STAT [id number] 17:27:00 Test Item Value Reference Range Interpretation [...] code = 1414) HGB/HCT (H&H) - STAT [id number] 17:01:00 Test Item Value Reference Range Interpretation Comments HEMOGLOBIN (BEAKER) (test code = 10.1 g/dL 13.0-16.8 L 410) HEMATOCRIT (BEAKER) (test code = 30.0 % 40.0-50.0 L 411) BLOOD GAS, [id number] 17:00:00 Test Item Value Reference Range Interpretation [...] (test code = 1819) 65.0 % GLUCOSE-STAT [id number] 17:00:00 Test Item Value Reference Range Interpretation Comments GLUCOSE RANDOM (BEAKER) (test code 243 mg/dL 70-110 H = 652) SODIUM NA-STAT [id number] 16:59:00 Test Item Value Reference Range Interpretation Comments SODIUM (BEAKER) (test code = 381) 139 meq/L 135-148 POTASSIUM-STAT [id number] 16:59:00 Test Item Value Reference Range Interpretation Comments POTASSIUM (BEAKER) (test code = 4.6 meq/L 3.6-5.5 379) [id number] 16:47:00 Test Item Value Reference Range Interpretation Comments PARTIAL THROMBOPLASTIN TIME > seconds 22.5-36.0 HH (BEAKER) (test code = 760) BLOOD GAS, [id number] 16:18:00 Test Item Value Reference Range Interpretation [...] (test code = 1819) 65.0 % GLUCOSE-STAT [id number] 16:18:00 Test Item Value Reference Range Interpretation Comments GLUCOSE RANDOM (BEAKER) (test code 279 mg/dL 70-110 H = 652) HGB/HCT (H&H) - STAT [id number] 16:18:00 Test Item Value Reference Range Interpretation Comments HEMOGLOBIN (BEAKER) (test code = 7.0 g/dL 13.0-16.8 L 410) HEMATOCRIT (BEAKER) (test code = 21.0 % 40.0-50.0 L 411) SODIUM NA-STAT [id number] 16:17:00 Test Item Value Reference Range Interpretation Comments SODIUM (BEAKER) (test code = 381) 137 meq/L 135-148 POTASSIUM-STAT [id number] 16:17:00 Test Item Value Reference Range Interpretation Comments POTASSIUM (BEAKER) (test code = 4.6 meq/L 3.6-5.5 379) [id number] 16:15:00 Test Item Value Reference Range Interpretation Comments FIBRINOGEN LEVEL (BEAKER) (test 255 mg/dl 225-434 code = 658) PROTHROMBIN [id number] 16:14:00 Test Item Value Reference Range Interpretation Comments PROTIME (BEAKER) (test code = 20.2 seconds 11.7-14.7 H 759) INR (BEAKER) (test code = 370) 1.7 <=5.9 RECOMMENDED COUMADIN/WARFARIN INR THERAPY RANGESSTANDARD DOSE: 2.0 - 3.0 Includes: PROPHYLAXIS forvenous thrombosis, systemic embolization; TREATMENT for venous thrombosis and/or pulmonary embolus.HIGH RISK: Target INR is 2.5-3.5 for patients with mechanical heart valves.PLATELET [id number] 16:02:00 Test Item Value Reference Range Interpretation Comments PLATELET COUNT (BEAKER) (test code 57 K/CU MM 150-450 L = 756) CALCIUM, [id number] 15:51:00 Test Item Value Reference Range Interpretation Comments CALCIUM IONIZED (BEAKER) (test 0.82 mmol/L 1.12-1.27 L code = 698) PH, BLOOD (BEAKER) (test code = 7.45 1810) BLOOD GAS, [id number] 15:51:00 Test Item Value Reference Range Interpretation [...] (test code = 1819) 100.0 % GLUCOSE-STAT [id number] 15:51:00 Test Item Value Reference Range Interpretation Comments GLUCOSE RANDOM (BEAKER) (test code 190 mg/dL 70-110 H = 652) HGB/HCT (H&H) - STAT [id number] 15:51:00 Test Item Value Reference Range Interpretation Comments HEMOGLOBIN (BEAKER) (test code = 7.6 g/dL 13.0-16.8 L 410) HEMATOCRIT (BEAKER) (test code = 22.0 % 40.0-50.0 L 411) POTASSIUM-STAT [id number] 15:51:00 Test Item Value Reference Range Interpretation Comments POTASSIUM (BEAKER) (test code = 5.6 meq/L 3.6-5.5 H 379) SODIUM NA-STAT [id number] 15:50:00 Test Item Value Reference Range Interpretation Comments SODIUM (BEAKER) (test code = 381) 139 meq/L 135-148 BLOOD GAS, [id number] 15:43:00 Test Item Value Reference Range Interpretation [...] (test code = 1819) 75.0 % GLUCOSE-STAT [id number] 15:43:00 Test Item Value Reference Range Interpretation Comments GLUCOSE RANDOM (BEAKER) (test code 189 mg/dL 70-110 H = 652) HGB/HCT (H&H) - STAT [id number] 15:43:00 Test Item Value Reference Range Interpretation Comments HEMOGLOBIN (BEAKER) (test code = 8.0 g/dL 13.0-16.8 L 410) HEMATOCRIT (BEAKER) (test code = 24.0 % 40.0-50.0 L 411) POTASSIUM-STAT [id number] 15:43:00 Test Item Value Reference Range Interpretation Comments POTASSIUM (BEAKER) (test code = 5.7 meq/L 3.6-5.5 H 379) SODIUM NA-STAT [id number] 15:42:00 Test Item Value Reference Range Interpretation Comments SODIUM (BEAKER) (test code = 381) 136 meq/L 135-148 SODIUM NA-STAT [id number] 15:06:00 Test Item Value Reference Range Interpretation Comments SODIUM (BEAKER) (test code = 381) 139 meq/L 135-148 BLOOD GAS, [id number] 15:06:00 Test Item Value Reference Range Interpretation [...] (test code = 1819) 60.0 % POTASSIUM-STAT [id number] 15:06:00 Test Item Value Reference Range Interpretation Comments POTASSIUM (BEAKER) (test code = 5.8 meq/L 3.6-5.5 H 379) GLUCOSE-STAT [id number] 15:06:00 Test Item Value Reference Range Interpretation Comments GLUCOSE RANDOM (BEAKER) (test code 192 mg/dL 70-110 H = 652) HGB/HCT (H&H) - STAT [id number] 15:06:00 Test Item Value Reference Range Interpretation Comments HEMOGLOBIN (BEAKER) (test code = 8.2 g/dL 13.0-16.8 L 410) HEMATOCRIT (BEAKER) (test code = 24.0 % 40.0-50.0 L 411) POTASSIUM-STAT [id number] 14:41:00 Test Item Value Reference Range Interpretation Comments POTASSIUM (BEAKER) (test code = 5.2 meq/L 3.6-5.5 379) BLOOD GAS, [id number] 14:41:00 Test Item Value Reference Range Interpretation [...] code = 1819) 60.0 % SODIUM NA-STAT [id number] 14:41:00 Test Item Value Reference Range Interpretation Comments SODIUM (BEAKER) (test code = 381) 134 meq/L 135-148 L GLUCOSE-STAT [id number] 14:41:00 Test Item Value Reference Range Interpretation Comments GLUCOSE RANDOM (BEAKER) (test code 195 mg/dL 70-110 H = 652) HGB/HCT (H&H) - STAT [id number] 14:41:00 Test Item Value Reference Range Interpretation Comments HEMOGLOBIN (BEAKER) (test code = 8.2 g/dL 13.0-16.8 L 410) HEMATOCRIT (BEAKER) (test code = 24.0 % 40.0-50.0 L 411) BLOOD GAS, [id number] 14:10:00 Test Item Value Reference Range Interpretation [...] (test code = 1819) 60.0 % GLUCOSE-STAT [id number] 14:10:00 Test Item Value Reference Range Interpretation Comments GLUCOSE RANDOM (BEAKER) (test code 177 mg/dL 70-110 H = 652) HGB/HCT (H&H) - STAT [id number] 14:10:00 Test Item Value Reference Range Interpretation Comments HEMOGLOBIN (BEAKER) (test code = 8.5 g/dL 13.0-16.8 L 410) HEMATOCRIT (BEAKER) (test code = 25.0 % 40.0-50.0 L 411) SODIUM NA-STAT [id number] 14:09:00 Test Item Value Reference Range Interpretation Comments SODIUM (BEAKER) (test code = 381) 136 meq/L 135-148 POTASSIUM-STAT [id number] 14:09:00 Test Item Value Reference Range Interpretation Comments POTASSIUM (BEAKER) (test code = 5.0 meq/L 3.6-5.5 379) SODIUM NA-STAT [id number] 13:39:00 Test Item Value Reference Range Interpretation Comments SODIUM (BEAKER) (test code = 381) 136 meq/L 135-148 POTASSIUM-STAT [id number] 13:39:00 Test Item Value Reference Range Interpretation Comments POTASSIUM (BEAKER) (test code = 5.0 meq/L 3.6-5.5 379) BLOOD GAS, [id number] 13:39:00 Test Item Value Reference Range Interpretation [...] (test code = 1819) 60.0 % GLUCOSE-STAT [id number] 13:39:00 Test Item Value Reference Range Interpretation Comments GLUCOSE RANDOM (BEAKER) (test code 179 mg/dL 70-110 H = 652) HGB/HCT (H&H) - STAT [id number] 13:39:00 Test Item Value Reference Range Interpretation Comments HEMOGLOBIN (BEAKER) (test code = 8.1 g/dL 13.0-16.8 L 410) HEMATOCRIT (BEAKER) (test code = 24.0 % 40.0-50.0 L 411) CALCIUM, [id number] 12:31:00 Test Item Value Reference Range Interpretation Comments CALCIUM IONIZED (BEAKER) (test 1.09 mmol/L 1.12-1.27 L code = 698) PH, BLOOD (BEAKER) (test code = 7.45 1810) GLUCOSE-STAT [id number] 12:30:00 Test Item Value Reference Range Interpretation Comments GLUCOSE RANDOM (BEAKER) (test code = 93 mg/dL 70-110 652) SODIUM NA-STAT [id number] 12:30:00 Test Item Value Reference Range Interpretation Comments SODIUM (BEAKER) (test code = 381) 140 meq/L 135-148 POTASSIUM-STAT [id number] 12:30:00 Test Item Value Reference Range Interpretation Comments POTASSIUM (BEAKER) (test code = 3.9 meq/L 3.6-5.5 379) BLOOD GAS, [id number] 12:30:00 Test Item Value Reference Range Interpretation [...] 1819) 100.0 % HGB/HCT (H&H) - STAT [id number] 12:30:00 Test Item Value Reference Range Interpretation Comments HEMOGLOBIN (BEAKER) (test code = 9.3 g/dL 13.0-16.8 L 410) HEMATOCRIT (BEAKER) (test code = 27.0 % 40.0-50.0 L 411) HEMOGLOBIN [id number] 10:02:00 Test Item Value Reference Range Interpretation Comments HEMOGLOBIN A1C (BEAKER) (test code = 4.4 % 4.3-6.1 368) POCT-GLUCOSE [id number] 09:52:00 Test Item Value Reference Range Interpretation Comments POC-GLUCOSE METER 115 mg/dL 70-110 H TESTED AT [facility] (BEAKER) (test code = [place] 1538) [address] PROTHROMBIN [id number] 02:41:00 Test Item Value Reference Range Interpretation Comments PROTIME (BEAKER) (test code = 14.9 seconds 11.7-14.7 H 759) INR (BEAKER) (test code = 370) 1.2 <=5.9 RECOMMENDED COUMADIN/WARFARIN INR THERAPY RANGESSTANDARD DOSE: 2.0 - 3.0 Includes: PROPHYLAXIS forvenous thrombosis, systemic embolization; TREATMENT for venous thrombosis and/or pulmonary embolus.HIGH RISK: Target INR is 2.5-3.5 for patients with mechanical heart valves.BASIC METABOLIC [id number] 00:29:00 Test Item Value Reference Range Interpretation [...] S NOT APPLICABLE FOR DIALYSIS PATIEN TS. [id number] 00:22:00 Test Item Value Reference Range Interpretation Comments MAGNESIUM (BEAKER) 2.5 mg/dL 1.6-2.6 Specimen slightly (test code = 627) hemolyzed [id number] 00:14:00 Test Item Value Reference Range Interpretation Comments PARTIAL THROMBOPLASTIN TIME 38.6 seconds 22.5-36.0 H (BEAKER) (test code = 760) CBC W/PLT COUNT & AUTO [id number] 00:07:00 Test Item Value Reference Range Interpretation [...] 0-1 PERCENT (BEAKER) (test code = 2801) [id number] 17:03:00 Test Item Value Reference Range Interpretation Comments THYROID STIMULATING HORMONE 1.30 uIU/mL 0.35-4.94 (BEAKER) (test code = 772) HEPATIC FUNCTION [id number] 16:43:00 Test Item Value Reference Range Interpretation [...] 69 U/L 6-55 H 347) BASIC METABOLIC [id number] 15:47:00 Test Item Value Reference Range Interpretation [...] S NOT APPLICABLE FOR DIALYSIS PATIEN TS. [id number] 14:57:00 Test Item Value Reference Range Interpretation Comments PARTIAL THROMBOPLASTIN TIME 82.9 seconds 22.5-36.0 H (BEAKER) (test code = 760) CBC W/PLT COUNT & AUTO [id number] 14:48:00 Test Item Value Reference Range Interpretation [...] PERCENT (BEAKER) (test code = 2801) POCT-GLUCOSE [id number] 11:13:00 Test Item Value Reference Range Interpretation Comments POC-GLUCOSE METER 207 mg/dL 70-110 H TESTED AT [facility] [address] ([facility]) (test code = [place] 1538) [address] POCT-GLUCOSE [id number] 08:08:00 Test Item Value Reference Range Interpretation Comments POC-GLUCOSE METER 124 mg/dL 70-110 H TESTED AT [facility] [address] (BEAKER) (test code = [place] 1538) [address] [id number] 06:51:00 Test Item Value Reference Range Interpretation Comments PARTIAL THROMBOPLASTIN TIME 54.6 seconds 22.5-36.0 H (BEAKER) (test code = 760) HEPATITIS B SURFACE [id number] 00:28:00 Test Item Value Reference Range Interpretation Comments HEPATITIS B SURFACE ANTIGEN (2) Nonreactive Nonreactive (BEAKER) (test code = 2585) [id number] 00:06:00 Test Item Value Reference Range Interpretation Comments PHOSPHORUS (BEAKER) (test code = 3.2 mg/dL 2.3-4.7 604) [id number] 00:03:00 Test Item Value Reference Range Interpretation Comments PARTIAL THROMBOPLASTIN TIME 36.0 seconds 22.5-36.0 (BEAKER) (test code = 760) CBC W/PLT COUNT & AUTO [id number] 23:45:00 Test Item Value Reference Range Interpretation [...] PERCENT (BEAKER) (test code = 2801) POCT-GLUCOSE [id number] 17:39:00 Test Item Value Reference Range Interpretation Comments POC-GLUCOSE METER 116 mg/dL 70-110 H TESTED AT [facility] [address] ([facility]) (test code = [place] [facility] 1538) [address] [id number] 15:35:00 Test Item Value Reference Range Interpretation Comments THYROID STIMULATING HORMONE 1.39 uIU/mL 0.35-4.94 (AKER) (test code = 772) [id number] 15:06:00 Test Item Value Reference Range Interpretation Comments PARTIAL THROMBOPLASTIN TIME 31.0 seconds 22.5-36.0 (AKER) (test code = 760) Prior to initiating heparinPROTHROMBIN TIME/[id number] 15:05:00 Test Item Value Reference Range Interpretation Comments PROTIME (BEAKER) (test code = 14.4 seconds 11.7-14.7 759) INR (AKER) (test code = 370) 1.1 <=5.9 RECOMMENDED COUMADIN/WARFARIN INR THERAPY RANGESSTANDARD DOSE: 2.0 - 3.0 Includes: PROPHYLAXIS forvenous thrombosis, systemic embolization; TREATMENT for venous thrombosis and/or pulmonary embolus.HIGH RISK: Target INR is 2.5-3.5 for patients with mechanical heart valves.PLATELET [id number] 14:52:00 Test Item Value Reference Range Interpretation Comments PLATELET COUNT (JARROD) (test 109 K/CU MM 150-450 L code = 756) POCT-GLUCOSE [id number] 12:00:00 Test Item Value Reference Range Interpretation Comments POC-GLUCOSE METER 186 mg/dL 70-110 H TESTED AT [facility] [address] (JARROD) (test code = [place] 1538) [address] RAD, CHEST, 1 VIEW, NON [id number] 11:43:00Reason for exam:->SOB, known severe MRShould this be performed at the bedside?->YesFINAL REPORT Chest one view AP 01/08/2018 11:42 AM CLINICAL INDICATION: SOB, kno wn severe MR COMPARISON: 12/02/2017 IMPRESSION: Cardiomediastinal contours are stable. There is mild pulmonary edema. There are trace bilateral pleural effusions. Signed: Yevgeniy Anderson Verified Date/Time: 01/08/2018 11:43:52 Reading Location: [facility] Radiology Reading Room Electronic ally signed by: YEVGENIY ANDERSON M.D. on 01/08/2018 11:43 AMRAPID CK-MB 2017-12-02 10:04:00 Test Item Value Reference Range Interpretation Comments RAPID CKMB (JARROD) (test code = 1.5 ng/mL 0.0-4.3 1482) RAPID TROPONIN [id number] 10:04:00 Test Item Value Reference Range Interpretation Comments RAPID TROPONIN I (JARROD) (test code < ng/mL <0.05 = 1483) RAD, CHEST, 2 [id number] 10:00:00Reason for exam:->Chest PainFINAL REPORT Chest two views Discussion: Heart size upper limits of normal. Bilateral interstitial edema with small bilateral effusions. No pneumothorax. Bones and soft tissues unremarkable. Signed: Larry Colindres Verified Date/Time: 12/02/2017 10:00:39 Reading Location:[facility] Radiology Reading Room B-TYPE NATRIURETIC FACTOR (BNP)2017-12-02 09:56:00 Test Item Value Reference Range Interpretation Comments B-TYPE NATRIURETIC PEPTIDE 1990 pg/mL 0-100 H (BEAKER) (test code = 700) BASIC METABOLIC [id number] 09:52:00 Test Item Value Reference Range Interpretation [...] S NOT APPLICABLE FOR DIALYSIS PATIEN TS. [id number] 09:51:00 Test Item Value Reference Range Interpretation Comments MAGNESIUM (BEAKER) (test code = 1.7 mg/dL 1.5-3.0 627) CBC W/PLT COUNT & AUTO [id number] 09:50:00 Test Item Value Reference Range Interpretation [...] (BEAKER) (test code = 417) CD4/CD8 Ratio [id number] 08:04:00 Test Item Value Reference Range Interpretation Comments Absolute CD 4 [place]ac (test code 188 /uL 359-1519 L = 789860) % CD 4 Pos. Lymph. (test code = 37.6 % 30.8-58.5 N 170683) Abs. CD 8 Suppressor (test code 183 /uL 109-897 N = 773908) % CD 8 Pos. Lymph. (test code = 36.6 % 12.0-35.5 H 878409) CD4/CD8 Ratio (test code = 1.03 0.92-3.72 N 396652) WBC (test code = 494836) 5.0 x10E3/uL 3.4-10.8 N RBC (test code = 765264) 3.00 x10E6/uL 4.14-5.80 L Hemoglobin (test code = 923314) 9.6 g/dL 13.0-17.7 L Hematocrit (test code = 279189) 27.6 % 37.5-51.0 L MCV (test code = 625821) 92 fL 79-97 N MCH (test code = 060376) 32.0 pg 26.6-33.0 N MCHC (test code = 897789) 34.8 g/dL 31.5-35.7 N RDW (test code = 914016) 15.5 % 12.3-15.4 H Platelets (test code = 641591) 113 x10E3/uL 150-379 L Neutrophils (test code = 84 % Not Estab. N 492079) Lymphs (test code = 801209) 9 % Not Estab. N Monocytes (test code = 355149) 6 % Not Estab. N Eos (test code = 599180) 1 % Not Estab. N Basos (test code = 305825) 0 % Not Estab. N Neutrophils (Absolute) (test 4.2 x10E3/uL 1.4-7.0 N code = 215611) Lymphs (Absolute) (test code = 0.5 x10E3/uL 0.7-3.1 L 040808) Monocytes(Absolute) (test code 0.3 x10E3/uL 0.1-0.9 N = 208228) Eos (Absolute) (test code = 0.0 x10E3/uL 0.0-0.4 N 920757) Baso (Absolute) (test code = 0.0 x10E3/uL 0.0-0.2 N 314839) Immature Granulocytes (test 0 % Not Estab. N code = 910316) Immature Grans (Abs) (test code 0.0 x10E3/uL 0.0-0.1 N = 778053) Culture, Blood [id number] 08:42:00Specimen: BloodCollected: 11/19/2017 00:21 Status: Final Last Updated: 11/24/2017 08:42 Culture Result (Final) (Final) No Growth After 5 DaysCulture, Blood [id number] 08:42:00 Specimen: BloodCollected: 11/18/2017 20:30 Status: Final Last Updated: 11/24/2017 08:42 Culture Result (Final) (Final) No Growth After 5 DaysPOC Glucose, [id number] 11:51:00 Test Item Value Reference Range Interpretation Comments POC Glucose (test 148 mg/dL 70-115 H Notify RN or MDIf you code = POCGLUC) consider you r patient critically ill, the [facility] Accu-Chek InformII metershould not be used for Glucose determinations. Draw a venous Glucose and send to the Main Lab for Analysis. CK [id number] 07:42:00 Test Item Value Reference Range Interpretation Comments CK (test code = CK) na U/L 39-308 N CKMB (test code = CKMB) 4.0 ng/mL 0.0-4.9 N CKMB% (test code = CKMBP) 0.0 % 0.0-3.4 N [id number] 07:39:00 Test Item Value Reference Range Interpretation Comments NT ProBnp (test code = PBNP) >37198 pg/mL 0-124 H Troponin [id number] 07:18:00 Test Item Value Reference Range Interpretation Comments Troponin T (test code = MADHAV) 0.103 ng/mL 0.000-0.090 H Lactate [id number] 07:18:00 Test Item Value Reference Range Interpretation Comments LDH (test code = LDH) 271 U/L 135-225 H POC Glucose, [id number] 06:50:00 Test Item Value Reference Range Interpretation Comments POC Glucose (test 154 mg/dL 70-115 H Notify RN or MDIf you code = POCGLUC) consider you r patient critically ill, the [facility]eline Accu-Chek InformII metershould not be used for Glucose determinations. Draw a venous Glucose and send to the Main Lab for Analysis. CK [id number] 01:08:00 Test Item Value Reference Range Interpretation Comments CK (test code = CK) na U/L 39-308 N CKMB (test code = CKMB) 3.6 ng/mL 0.0-4.9 N CKMB% (test code = CKMBP) 0.0 % 0.0-3.4 N Troponin [id number] 01:08:00 Test Item Value Reference Range Interpretation Comments Troponin T (test code = MADHAV) 0.106 ng/mL 0.000-0.090 H XR CHEST 1 [id number] 21:02:01CLINICAL INFORMATION: Vascular congestion.Dictation Location: R 16Comparison: 11/18/2017 showed perihilar and lower lobe opacities. Technique: Portable AP 1951 hoursFINDINGS: Monitoring electrodes overlie the chest wall. Cardiomegaly withincreasing central vascular interstitial prominence with bibasilaropacities and effusions. No interval bone changes.IMPRESSION: Changes could indicate worsening cardiac decompensation orfluid overload.POC Glucose, [id number] 20:15:00 Test Item Value Reference Range Interpretation Comments POC Glucose (test 139 mg/dL 70-115 H If you con e commerce specialist your code = POCGLUC) patient crit ically ill, the [facility] Accu- Chek InformII meters hould not be used for Glu cose determinations. Draw a venous Glucose and send to the Main Lab for Analysis. POC Glucose, [id number] 16:52:00 Test Item Value Reference Range Interpretation Comments POC Glucose (test 123 mg/dL 70-115 H If you con e commerce specialist your code = POCGLUC) patient crit ically ill, the [facility]eline Accu- Chek InformII meters hould not be used for Glu cose determinations. Draw a venous Glucose and send to the Main Lab for Analysis. POC Glucose, [id number] 12:04:00 Test Item Value Reference Range Interpretation Comments POC Glucose (test 140 mg/dL 70-115 H If you con e commerce specialist your code = POCGLUC) patient crit ically ill, the Madeline Accu- Chek InformII meters hould not be used for Glu cose determinations. Draw a venous Glucose and send to the Main Lab for Analysis. POC Glucose, [id number] 08:01:00 Test Item Value Reference Range Interpretation Comments POC Glucose (test 126 mg/dL 70-115 H If you con e commerce specialist your code = POCGLUC) patient crit ically ill, the Madeline Accu- Chek InformII meters hould not be used for Glu cose determinations. Draw a venous Glucose and send to the Main Lab for Analysis. CK [id number] 06:03:00 Test Item Value Reference Range Interpretation Comments CK (test code = CK) na U/L 39-308 N CKMB (test code = CKMB) 2.8 ng/mL 0.0-4.9 N CKMB% (test code = CKMBP) 0.0 % 0.0-3.4 N Basic Metabolic [id number] 05:51:00 Test Item Value Reference Range Interpretation [...] the National Kidney Foundation,http ://nkd ep.nih.gov Magnesium, [id number] 05:51:00 Test Item Value Reference Range Interpretation Comments Magnesium (test code = MG) 1.9 mg/dL 1.7-2.5 N [id number] 05:51:00 Test Item Value Reference Range Interpretation Comments Phosphorus (test code = PO4) 3.8 mg/dL 2.70-4.50 N [id number] 05:51:00 Test Item Value Reference Range Interpretation Comments NT ProBnp (test code = PBNP) >36659 pg/mL 0-124 H Troponin [id number] 05:51:00 Test Item Value Reference Range Interpretation Comments Troponin T (test code = MADHAV) 0.126 ng/mL 0.000-0.090 H CBC with [id number] 05:34:00 Test Item Value Reference Range Interpretation [...] code = ALYMPH) 0.4 K/cumm 0.5-4.6 L [place] Abs (test code = AMONO) 0.6 K/cumm 0.0-1.2 N Eos Abs (test code = AEOS) 0.13 K/cumm 0.00-0.74 N Baso Abs (test code = ABASO) 0.0 K/cumm 0.00-0.21 N CK [id number] 18:39:00 Test Item Value Reference Range Interpretation Comments CK (test code = CK) HIDE U/L 39-308 N CKMB (test code = CKMB) 3.2 ng/mL 0.0-4.9 N CKMB% (test code = CKMBP) HIDE % 0.0-3.4 N Troponin [id number] 18:39:00 Test Item Value Reference Range Interpretation Comments Troponin T (test code = MADHAV) 0.126 ng/mL 0.000-0.090 H Hep B Surface [id number] 18:39:00 Test Item Value Reference Range Interpretation Comments Hep Bs Ag (test code = HBSAG) Nonreactive Non-Reactive A POC Glucose, [id number] 16:47:00 Test Item Value Reference Range Interpretation Comments POC Glucose (test 143 mg/dL 70-115 H If you con e commerce specialist your code = POCGLUC) patient crit ically ill, the [facility]eline Accu- Chek InformII meters hould not be used for Glu cose determinations. Draw a venous Glucose and send to the Main Lab for Analysis. XR CHEST 1 [id number] 08:18:18EXAM: Portable AP chest x-rayLOCATION: R16 INDICATION: CoughCOMPARISON: 11/07/2017FINDINGS:The cardiacsilhouette is stable enlargement. There are increasinginterstitial opacities, most evident in the per ihilar regions and lowerlobes. There is blunting of the costophrenic angles bilaterally. Thereis no discernible pneumothorax.IMPRESSION:Increasing perihilar and bilateral lower lobe opacities compared to theprior exam dated 11/07/2017. Findings may represent pulmonary edema orpneumonia in the appropriate clinical setting.Comprehensive Metabolic [id number] 08:05:00 Test Item Value Reference Range Interpretation [...] the National Kidney Foundation,http ://nkd ep.nih.gov CK [id number] 08:05:00 Test Item Value Reference Range Interpretation Comments CK (test code = CK) 149 U/L 39-308 N Troponin [id number] 08:02:00 Test Item Value Reference Range Interpretation Comments Troponin T (test code = MADHAV) 0.114 ng/mL 0.000-0.090 H [id number] 08:02:00 Test Item Value Reference Range Interpretation Comments NT ProBnp (test code = PBNP) >40528 pg/mL 0-124 H CBC with [id number] 07:53:00 Test Item Value Reference Range Interpretation [...] code = ALYMPH) 0.9 K/cumm 0.5-4.6 N [place] Abs (test code = AMONO) 0.4 K/cumm 0.0-1.2 N Eos Abs (test code = AEOS) 0.11 K/cumm 0.00-0.74 N Baso Abs (test code = ABASO) 0.0 K/cumm 0.00-0.21 N XR CHEST 1 [id number] 21:38:09EXAM: CHEST ONE VIEWINDICATION: CoughCOMPARISON: October 06, 2017TECHNIQUE: AP view of the chest.FINDINGS: The cardiomediastinal silhouette is unchanged. Mild congestive changesbilaterally. No pneumothorax or pleural effusion is identified. Theosseous structures are unremarkable.IMPRESSION: Diffuse congestive changes bilaterally.LOCATION: R16US DUPLX EXT VEINS COMPR, [id number] 20:09:34AFTER HOURS SERVICE ON: 10/06/2017 8:09 PMRIGHT Lower Extremity Venous Duplex Doppler ExaminationLocation Code K54Sbvcaer: SwellingTechnique: Real-time castillo scale, Doppler spectral analysis [...] Lower Extremity Venous Duplex Doppler ExaminationLocation Code C50Nkqae ry: SwellingTechnique: Real-time castillo scale, Doppler spectral [...] of DVT in the imaged vessels.Comprehensive Metabolic [id number] 17:40:00 Test Item Value Reference Range Interpretation [...] by th e MDRD study and yakelin hill be interpretedwith caution.eGFR Re sult Interpretation: eGFR > or = 60 is in t he Normal RangeeGF R < 60 may mean kidney diseaseeGFR < 1 5 may mean kidney failureRange s recommended by the National Kidney Foundation,http ://nkd ep.nih.gov CBC with [id number] 17:15:00 Test Item Value Reference Range Interpretation [...] code = ALYMPH) 1.3 K/cumm 0.5-4.6 N [place] Abs (test code = AMONO) 0.6 K/cumm 0.0-1.2 N Eos Abs (test code = AEOS) 0.12 K/cumm 0.00-0.74 N Baso Abs (test code = ABASO) 0.0 K/cumm 0.00-0.21 N XR CHEST 1 [id number] 16:56:42CHEST 1 VIEW: [id number]: coughCOMPARISON:Sep 24, 2017FINDINGS:The heart is enlarged. There is engorgement of the central pulmonaryvasculature. There are patchy bibasilar areas of infiltrate oratelectasis with bilateral effusions. No pneumothorax is present. IMPRESSION: 1. Patchy areas of atelectasis or infiltrate in the lung bases withsmall bilateral effusions and vascular congestion most likely secondaryto CHF.Culture, Blood [id number] 14:58:00Specimen: BloodCollected: 09/24/2017 13:05 Status: Final Last Updated: 09/29/2017 14:58 (1) ER Bed 1 Culture Result (Final) (Final) No Growth After 5 DaysCulture, Blood [id number] 14:58:00Specimen: BloodCollected: 09/24/2017 12:50 Status: Final Last Updated: 09/29/2017 14:58 (1) ER Bed 1 Culture Result (Final) (Final) No Growth After 5 DaysPOC Glucose, [id number] 10:54:00 Test Item Value Reference Range Interpretation Comments POC Glucose (test 168 mg/dL 70-115 H If you con e commerce specialist your code = POCGLUC) patient crit ically ill, the Madeline Accu- Chek InformII meters hould not be used for Glu cose determinations. Draw a venous Glucose and send to the Main Lab for Analysis. POC Glucose, [id number] 07:16:00 Test Item Value Reference Range Interpretation Comments POC Glucose (test 143 mg/dL 70-115 H If you con e commerce specialist your code = POCGLUC) patient crit ically ill, the Madeline Accu- Chek InformII meters hould not be used for Glu cose determinations. Draw a venous Glucose and send to the Main Lab for Analysis. CBC with [id number] 07:15:00 Test Item Value Reference Range Interpretation [...] code = ALYMPH) 1.3 K/cumm 0.5-4.6 N [place] Abs (test code = AMONO) 0.7 K/cumm 0.0-1.2 N Eos Abs (test code = AEOS) 0.07 K/cumm 0.00-0.74 N Baso Abs (test code = ABASO) 0.0 K/cumm 0.00-0.21 N Magnesium, [id number] 07:03:00 Test Item Value Reference Range Interpretation Comments Magnesium (test code = MG) 2.0 mg/dL 1.7-2.5 N Basic Metabolic [id number] 07:03:00 Test Item Value Reference Range Interpretation [...] National Kidney Foundation,http ://nkd ep.nih.gov POC Glucose, [id number] 21:40:00 Test Item Value Reference Range Interpretation Comments POC Glucose (test 129 mg/dL 70-115 H If you con e commerce specialist your code = POCGLUC) patient crit ically ill, the Madeline Accu- Chek InformII meters hould not be used for Glu cose determinations. Draw a venous Glucose and send to the Main Lab for Analysis. Hep B Surface [id number] 18:36:00 Test Item Value Reference Range Interpretation Comments Hep Bs Ag (test code = HBSAG) Nonreactive Non-Reactive A POC Glucose, [id number] 10:51:00 Test Item Value Reference Range Interpretation Comments POC Glucose (test 216 mg/dL 70-115 H If you con e commerce specialist your code = POCGLUC) patient crit ically ill, the Madeline Accu- Chek InformII meters hould not be used for Glu cose determinations. Draw a venous Glucose and send to the Main Lab for Analysis. POC Glucose, [id number] 07:57:00 Test Item Value Reference Range Interpretation Comments POC Glucose (test 164 mg/dL 70-115 H If you con e commerce specialist your code = POCGLUC) patient crit ically ill, the Amdeline Accu- Chek InformII meters hould not be used for Glu cose determinations. Draw a venous Glucose and send to the Main Lab for Analysis. POC Glucose, [id number] 19:47:00 Test Item Value Reference Range Interpretation Comments POC Glucose (test 140 mg/dL 70-115 H Notify RN or MDIf you code = POCGLUC) consider you r patient critically ill, the Madeline Accu-Chek InformII metershould not be used for Glucose determinations. Draw a venous Glucose and send to the Main Lab for Analysis. Troponin [id number] 19:36:00 Test Item Value Reference Range Interpretation Comments Troponin T (test code = MADHAV) 0.121 ng/mL 0.000-0.090 H CK [id number] 19:25:00 Test Item Value Reference Range Interpretation Comments CK (test code = CK) 160 U/L 39-308 N The valu e HIDE originally released by [facility] on 09/25/2017 19:1 2 waschanged to 1 60 by ALDAIR on 09/25 19:24 CKMB (test code = 3.0 ng/mL 0.0-4.9 N CKMB) CKMB% (test code = 1.9 % 0.0-3.4 N The value HIDE originally CKMBP) released by [facility] on 09/25/2017 19:1 2 waschanged to 1 .9 by [employer] on 09/25 19:24 POC Glucose, [id number] 16:42:00 Test Item Value Reference Range Interpretation Comments POC Glucose (test 123 mg/dL 70-115 H If you con e commerce specialist your code = POCGLUC) patient crit ically ill, the Madeline Accu- Chek InformII meters hould not be used for Glu cose determinations. Draw a venous Glucose and send to the Main Lab for Analysis. POC Glucose, [id number] 12:09:00 Test Item Value Reference Range Interpretation Comments POC Glucose (test 141 mg/dL 70-115 H If you con e commerce specialist your code = POCGLUC) patient crit ically ill, the Madeline Accu- Chek InformII meters hould not be used for Glu cose determinations. Draw a venous Glucose and send to the Main Lab for Analysis. Hep B Surface [id number] 07:59:00 Test Item Value Reference Range Interpretation Comments Hep Bs Ag (test code = HBSAG) Nonreactive Non-Reactive A CK [id number] 07:43:00 Test Item Value Reference Range Interpretation Comments CK (test code = CK) n/a U/L 39-308 N CKMB (test code = CKMB) 2.4 ng/mL 0.0-4.9 N CKMB% (test code = CKMBP) 0.0 % 0.0-3.4 N Troponin [id number] 07:38:00 Test Item Value Reference Range Interpretation Comments Troponin T (test code = MADHAV) 0.134 ng/mL 0.000-0.090 H Thyroid Stimulating Hormone (TSH)2017-09-25 07:38:00 Test Item Value Reference Range Interpretation Comments TSH (test code = TSH) 1.10 mIU/mL 0.270-4.200 N [id number] 07:38:00 Test Item Value Reference Range Interpretation Comments Phosphorus (test code = PO4) 3.4 mg/dL 2.70-4.50 N Comprehensive Metabolic [id number] 07:38:00 Test Item Value Reference Range Interpretation [...] the National Kidney Foundation,http ://nkd ep.nih.gov Magnesium, [id number] 07:38:00 Test Item Value Reference Range Interpretation Comments Magnesium (test code = MG) 2.0 mg/dL 1.7-2.5 N CK [id number] 07:31:00 Test Item Value Reference Range Interpretation Comments CK (test code = CK) 159 U/L 39-308 N Lipid [id number] 07:31:00 Test Item Value Reference Range Interpretation Comments Cholesterol (test 118 mg/dL 0-200 N code = CHOL) Triglycerides (test 170 mg/dL 9-200 N code = TRIG) HDL (test code = 49 mg/dL 40-60 N HDL) Chol/HDL (test code 2.4 Ratio 0.0-5.0 N = CHOLPHDL) LDL, Calculated 35 0-130 N (NOTE)RISK O F HEART (test code = LDLC) DISEASEPu blished by [place] Heart AssociationAnal yte Optim al Boderline Increased RiskC HOL <200 200-239 >240TRI G <150 150-199 >200HDL Male: >60 <40HDL Female: >60 <50 LDL < 100 130-15 9 >160 LDL NEAR OPTIMAL IS 100- 129 VLDL (test code = 34 mg/dL 5-40 N VLDL) LDL/HDL (test code = 1 LDLPHDL) Glycosylated [id number] 07:24:00 Test Item Value Reference Range Interpretation Comments HBA1c (test code = HBA1C) 5.0 % 4.8-5.9 N CBC with [id number] 07:20:00 Test Item Value Reference Range Interpretation [...] code = ALYMPH) 0.8 K/cumm 0.5-4.6 N [place] Abs (test code = AMONO) 0.5 K/cumm 0.0-1.2 N Eos Abs (test code = AEOS) 0.10 K/cumm 0.00-0.74 N Baso Abs (test code = ABASO) 0.0 K/cumm 0.00-0.21 N POC Glucose, [id number] 07:03:00 Test Item Value Reference Range Interpretation Comments POC Glucose (test 147 mg/dL 70-115 H If you con e commerce specialist your code = POCGLUC) patient crit ically ill, the Madeline Accu- Chek InformII meters hould not be used for Glu cose determinations. Draw a venous Glucose and send to the Main Lab for Analysis. POC Glucose, [id number] 22:05:00 Test Item Value Reference Range Interpretation Comments POC Glucose (test 134 mg/dL 70-115 H If you con e commerce specialist your code = POCGLUC) patient crit ically ill, the Madeline Accu- Chek InformII meters hould not be used for Glu cose determinations. Draw a venous Glucose and send to the Main Lab for Analysis. Blood Gas+Lytes+Glu+Ca+Hgb+Hct+[id number] 18:31:00 Test Item Value Reference Range Interpretation [...] (test code = alokrblvverqnscrit COMMENT) liz Pierre@ [id number] Puncture Site (test code = Radial. R PUNSITE) Drawing Tech ID (test code medel fi = DRAWTECH) iPAP (test code = IPAP) 0 cmH2O Respiratory Rate (test code 0 = RESP RATE) Lactic Acid, Blood Gas 0.4 mmol/L (test code = BGLA) CT CHEST W/O [id number] 16:48:03CT CHEST W/O CONTRASTLOCATION CODE: R16 HISTORY: [...] bilateral axillary, prevascular, andparatracheal lymph nodes.Influenza B [id number] 14:36:00Specimen: NasalCollected: 09/24/2017 14:04 Status: Final Last [...] the National Kidney Foundation,http ://nkd ep.nih.gov Troponin [id number] 13:54:00 Test Item Value Reference Range Interpretation Comments Troponin T (test code = MADHAV) 0.124 ng/mL 0.000-0.090 H [id number] 13:54:00 Test Item Value Reference Range Interpretation Comments NT ProBnp (test code = PBNP) >99199 pg/mL 0-124 H CK [id number] 13:54:00 Test Item Value Reference Range Interpretation Comments CK (test code = CK) 222 U/L 39-308 N CKMB (test code = CKMB) 3.1 ng/mL 0.0-4.9 N CKMB% (test code = CKMBP) 1.4 % 0.0-3.4 N CK [id number] 13:54:00 Test Item Value Reference Range Interpretation Comments CK (test code = CK) 222 U/L 39-308 N Partial Thromboplastin [id number] 13:43:00 Test Item Value Reference Range Interpretation Comments aPTT (test code = PTT) 35.70 seconds 24.39-37.25 N Prothrombin [id number] 13:43:00 Test Item Value Reference Range Interpretation Comments PT (test code = PT) 11.30 seconds 9.78-13.35 N INR (test code = INR) 0.99 Ratio 0.6-1.2 N Lactic Acid [id number] 13:41:00 Test Item Value Reference Range Interpretation Comments Lactic Acid, Bld (test code = LAC) 1.3 mmol/L 0.5-1.9 N CBC with [id number] 13:32:00 Test Item Value Reference Range Interpretation [...] code = ALYMPH) 1.2 K/cumm 0.5-4.6 N [place] Abs (test code = AMONO) 0.6 K/cumm 0.0-1.2 N Eos Abs (test code = AEOS) 0.23 K/cumm 0.00-0.74 N Baso Abs (test code = ABASO) 0.0 K/cumm 0.00-0.21 N XR CHEST 1 [id number] 12:50:14XR CHEST 1 VIEWLOCATION: [id number]: None.INDICATION: CoughDISCUSSION:A single portable chest radiograph was [...]
[2020-10-22] MEDS ORDERED: NA CHLORIDE 0.9% 250 ML ONE (17:26)
--- NOTE | 2020-10-22 17:36 | RAD REPORT ---
EXAM DESCRIPTION: Segun Single View10/22/2020 5:21 pm CLINICAL HISTORY: cough COMPARISON: July 2020 FINDINGS: Mild bilateral pulmonary opacities appear chronic. Chronic pleural thickening is present. Heart is moderately enlarged Postsurgical changes involve the chest. IMPRESSION: No acute abnormalities displayed
[2020-10-22 18:18] LABS: Absolute Lymphocytes (CBC) 0.8 K/uL (0.7-4.9); Basophils % 0.6 % (0-1.3); Hematocrit 25.4 % (39.6-49.0); Lymphocytes % 10.2 % (15.3-44.8); RBC Red Blood Cell Count 2.66 M/uL (4.33-5.43)
[2020-10-22 19:09] LABS: SARS-COV-2 RT PCR NEGATIVE (NEGATIVE)
--- NOTE | 2020-10-22 19:34 | ER ---
Nurse's Notes [facility] Name: Salvatore Goldman Age: 65 yrs Sex: Male : 1955 Arrival Date: 10/22/2020 Time: 16:28 Bed 8 Private MD: Diagnosis: Dehydration;Sinusitis;Generalized Fatigue/Weakness;Viral Syndrome Presentation: 10/22 16:33 Chief complaint: Patient states: "for accouple of days now I have been having higher jd3 blood pressure then normal and feeling almost hung over or something. it got worse here after dialyses today. and when I cough or sneeze I am starting to have a small amount of blood in my snot.". Coronavirus screen: At this time, the client does not indicate any symptoms associated with coronavirus-19. Ebola Screen: Patient negative for fever greater than or equal to 101.5 degrees Fahrenheit, and additional compatible Ebola Virus Disease symptoms. Initial Sepsis Screen: Does the patient meet any 2 criteria? No. Patient's initial sepsis screen is negative. Does the patient have a suspected source of infection? No. Patient's initial sepsis screen is negative. Risk Assessment: Do you want to hurt yourself or someone else? Patient reports no desire to harm self or others. Onset of symptoms was October 22, 2020. 16:33 Method Of Arrival: Wheelchair jd3 16:33 Acuity: NARDA 3 jd3 Historical: - Allergies: 16:36 No Known Allergies; jd3 - PMHx: 16:36 Hyperlipidemia; Karposi Sarcoma (left leg); Dialysis; Hepatitis; kidney failure; heart jd3 valve; HIV; Cirrhosis; L arm HD access; Diabetes - NIDDM; - PSHx: 16:36 VALVE REPLACEMENT, HEART; jd3 - Immunization history:: Adult Immunizations up to date. - Social history:: Smoking status: Patient denies any tobacco usage or history of. - Family history:: not pertinent. - Hospitalizations: : No recent hospitalization is reported. Screenin:45 Abuse screen: Denies threats or abuse. Denies injuries from another. Nutritional jl7 screening: No deficits noted. Tuberculosis screening: No symptoms or risk factors identified. 18:00 Fall Risk IV access (20 points). Total Humphrey Fall Scale indicates No Risk (0-24 pts). jl7 Assessment: 17:00 General: Appears in no apparent distress. uncomfortable, Behavior is cooperative, jl7 fussy, inappropriate for age. Pain: Denies pain. Neuro: Level of Consciousness is awake, alert, obeys commands, Oriented to person, place, time, situation, Reports dizziness, weakness. Cardiovascular: Patient's skin is warm and dry. Respiratory: Airway is patent Respiratory effort is even, unlabored, Respiratory pattern is regular, symmetrical. Derm: Skin is pink, warm \\T\\ dry. 18:00 Reassessment: Patient appears in no apparent distress at this time. No changes from jl7 previously documented assessment. Patient and/or family updated on plan of care and expected duration. Pain level reassessed. Patient is alert, oriented x 3, equal unlabored respirations, skin warm/dry/pink. 19:38 Reassessment: Patient appears in no apparent distress at this time. Patient is alert, rr5 oriented x 3, equal unlabored respirations, skin warm/dry/pink. does not want to wait for the results, discharge instruction given and explained without complaints made. Vital Signs: 16:37 BP 147 / 75; Pulse 105; Resp 18 S; Temp 97.9(O); Pulse Ox 100% on R/A; Weight 67.13 kg jd3 (R); Height 5 ft. 7 in. (170.18 cm) (R); Pain 0/10; 18:30 BP 155 / 77; Pulse 101; Resp 17; Pulse Ox 100% ; jl7 19:08 BP 165 / 88; Pulse 102; Resp 17; Pulse Ox 95% ; jl7 19:39 BP 161 / 80; Pulse 100; Resp 19; Pulse Ox 98% ; rr5 16:37 Body Mass Index 23.18 (67.13 kg, 170.18 cm) jd3 ED Course: 16:28 Patient arrived in ED. ag5 16:35 Triage completed. jd3 16:38 Arm band placed on. jd3 16:44 Jase Hughes RN is Primary Nurse. jl7 16:45 Manuel Montgomery MD is Attending Physician. rn 16:45 Patient has correct armband on for positive identification. orange grower on. Pulse jl7 ox on. NIBP on. 16:45 Warm blanket given. jl7 17:20 Initial lab(s) drawn, by ED staff, sent to lab. Inserted saline lock: 20 gauge in right jl7 forearm, using aseptic technique. Blood collected. 17:21 XRAY Chest (1 view) In Process Unspecified. EDMS 17:27 COVID swab sent to lab. jl7 19:01 Attending Physician role handed off by Manuel Montgomery MD 7 19:01 Oleg Thakkar MD is Attending Physician. 7 19:37 No provider procedures requiring assistance completed. IV discontinued, intact, rr5 bleeding controlled, No redness/swelling at site. Pressure dressing applied. Administered Medications: 17:15 Drug: NS 0.9% 250 ml Route: IV; Rate: bolus; Site: right forearm; jl7 17:45 Follow up: Response: No adverse reaction; IV Status: Completed infusion; IV Intake: jl7 250ml Intake: 17:45 IV: 250ml; Total: 250ml. jl7 Outcome: 19:34 Discharge ordered by MD. 7 19:37 Discharged to home via wheelchair. rr5 19:37 Condition: stable 19:37 Discharge instructions given to patient, Instructed on discharge instructions, follow up and referral plans. medication usage, Demonstrated understanding of instructions, follow-up care, medications, Prescriptions given X 1. 19:39 Patient left the ED. rr5 Signatures: Dispatcher [employer] EDMS Manuel Montgomery MD MD rn Leal, Jahala, RN RN jl7 Dean Cee RN RN jd3 Roque, Raymond, RN RN rr5 Khanh Charles 5 Oleg Thakkar MD MD 7 Corrections: (The following items were deleted from the chart) 16:37 16:33 Chief complaint: Patient states: "for accouple of days now I have been having jd3 higher blood pressure then normal and feeling almost hung over or something. it got worse here after dialyses today." jd3 18:30 11:00 Reassessment: Patient appears in no apparent distress at this time. No changes jl7 from previously documented assessment. Patient and/or family updated on plan of care and expected duration. Pain level reassessed. Patient is alert, oriented x 3, equal unlabored respirations, skin warm/dry/pink. jl7
--- NOTE | 2020-10-22 19:35 | EDPHYS ---
Physician Documentation [facility] Name: Salvatore Goldman Age: 65 yrs Sex: Male : 1955 Arrival Date: 10/22/2020 Time: 16:28 Bed 8 Private MD: ED Physician Oleg Thakkar HPI: 10/22 16:57 This 65 yrs old Black Male presents to ER via Wheelchair with complaints of General rn Weakness. 16:57 Reports 2-3 days of generalized weakness, nasal congestion, cough, and fatigue. Reports rn feels lightheaded and gets worse after dialysis. Also reports increase in BP meds recently, feels like is too much. No sob/chest pain/abd pain/vomiting/diarrhea. No headache. No focal weakness or paresthesia. . Onset: The symptoms/episode began/occurred 3 day(s) ago. Severity of symptoms: At their worst the symptoms were mild in the emergency department the symptoms are unchanged. The patient has not experienced similar symptoms in the past. The patient has not recently seen a physician. Historical: - Allergies: 16:36 No Known Allergies; jd3 - PMHx: 16:36 Hyperlipidemia; Karposi Sarcoma (left leg); Dialysis; Hepatitis; kidney failure; heart jd3 valve; HIV; Cirrhosis; L arm HD access; Diabetes - NIDDM; - PSHx: 16:36 VALVE REPLACEMENT, HEART; jd3 - Immunization history:: Adult Immunizations up to date. - Social history:: Smoking status: Patient denies any tobacco usage or history of. - Family history:: not pertinent. - Hospitalizations: : No recent hospitalization is reported. ROS: 16:57 Constitutional: Negative for fever, weight loss, Eyes: Negative for injury, pain, rn redness, and discharge, ENT: + nasal congestion Neck: Negative for injury, pain, and swelling, Cardiovascular: Negative for chest pain, palpitations, and edema, Respiratory: Negative for shortness of breath, wheezing, and pleuritic chest pain, Abdomen/GI: Negative for abdominal pain, nausea, vomiting, diarrhea, and constipation, MS/Extremity: Negative for injury and deformity, Skin: Negative for injury, rash, and discoloration, Neuro: Negative for headache, numbness, tingling, and seizure. Exam: 16:57 Constitutional: Thin male, no acute distress, asks for pillow and blanket immediately. rn Head/Face: Normocephalic, atraumatic. ENT: dry MM Cardiovascular: Tachycardic, regular Respiratory: No increased work of breathing, no retractions or nasal flaring. Abdomen/GI: soft, non-tender Skin: Warm, dry MS/ Extremity: Pulses equal, no cyanosis. Neurovascular intact. Full, normal range of motion. Equal circumference. Neuro: Awake and alert, GCS 15, oriented to person, place, time, and situation. Cranial nerves II-XII grossly intact. Motor strength 4/5 in all extremities. Sensory grossly intact. Walks from wheelchair to bed with cane. 17:04 ECG was reviewed by the Attending Physician. rn Vital Signs: 16:37 BP 147 / 75; Pulse 105; Resp 18 S; Temp 97.9(O); Pulse Ox 100% on R/A; Weight 67.13 kg jd3 (R); Height 5 ft. 7 in. (170.18 cm) (R); Pain 0/10; 18:30 BP 155 / 77; Pulse 101; Resp 17; Pulse Ox 100% ; jl7 19:08 BP 165 / 88; Pulse 102; Resp 17; Pulse Ox 95% ; jl7 19:39 BP 161 / 80; Pulse 100; Resp 19; Pulse Ox 98% ; rr5 16:37 Body Mass Index 23.18 (67.13 kg, 170.18 cm) jd3 MDM: 16:45 Patient medically screened. rn 19:24 Differential Diagnosis sepsis, flu, Sinusitis, Pneumonia, Viral syndrome, Dehydration. [facility] Data reviewed: vital signs, nurses notes, old medical records, lab test result(s), CBC, electrolytes, Flu: negative COVID-Negative. Data interpreted: Pulse oximetry: on room air is 98 %. Interpretation: normal. Counseling: I had a detailed discussion with the patient and/or guardian regarding: the historical points, exam findings, and any diagnostic results supporting the discharge/admit diagnosis, the presence of at least one elevated blood pressure reading (>120/80) during this emergency department visit, lab results, radiology results, to return to the emergency department if symptoms worsen or persist or if there are any questions or concerns that arise at home. Response to treatment: the patient's symptoms have markedly improved after treatment. Refusal of service: The patient/guardian displays adequate decision making capability and despite a detailed discussion of alternatives, benefits, risks, and consequences refuses: CT Scan, Medications. ED course: Patient signed out to me at change of shift to check pending influenza and COVID results and reevaluate. NAD, VSS, no focal neurological deficits. Discussed all test results and findings with the patient and recommended more IV fluids and more observation and possible additional lab work. He states that his symptoms are due to too much fluid being removed at dialysis. He states that he feels much better and adamantly requests to be discharged from the ED. He will follow up with his doctor but will return to the ED if he has any concerns.. 10/22 16:54 Order name: CBC with Diff rn 10/22 16:54 Order name: Basic Metabolic Panel 10/22 16:54 Order name: Procalcitonin; Complete Time: 18:16 rn 10/22 16:54 Order name: CBC with Automated Diff EDME 10/22 16:54 Order name: IV Start; Complete Time: 17:31 10/22 16:54 Order name: EKG; Complete Time: 16:55 rn 10/22 16:54 Order name: EKG - Nurse/Tech; Complete Time: 17:30 rn 10/22 16:54 Order name: XRAY Chest (1 view); Complete Time: 17:43 10/22 16:54 Order name: Basic Metabolic Panel; Complete Time: 18:30 EDME 10/22 18:20 Order name: CBC Smear Scan EDME 10/22 19:09 Order name: COVID-19/FLU A+B; Complete Time: 19:16 EDME 10/22 17:30 Order name: Labs - recollect needed: outside lab reprinting labels for recollect. blood eb clotted; Complete Time: 18:13 EC:04 Rate is 101 beats/min. Rhythm is regular. QRS [place] is Normal. ME interval is normal. rn QRS interval is normal. QT interval is normal. No Q waves. T waves are Normal. No ST changes noted. Clinical impression: Sinus tachycardia. Interpreted by me. Reviewed by me. Administered Medications: 17:15 Drug: NS 0.9% 250 ml Route: IV; Rate: bolus; Site: right forearm; jl7 17:45 Follow up: Response: No adverse reaction; IV Status: Completed infusion; IV Intake: jl7 250ml Disposition: 10/22/20 19:34 Discharged to Home. Impression: Dehydration, Sinusitis, Generalized Fatigue/Weakness, Viral Syndrome. - Condition is Stable. - Discharge Instructions: Dehydration, Adult, Fatigue, Sinusitis, Adult, [id number], Weakness, [id number]. - Prescriptions for Augmentin 500- 125 mg Oral Tablet - take 1 tablet by ORAL route every 8 hours for 10 days; 30 tablet. - Medication Reconciliation Form, Thank You Letter, Antibiotic Education, Prescription Opioid Use form. - Follow up: Private Physician; When: 1 - 2 days; Reason: Worsening of condition, Recheck today's complaints, Continuance of care, Re-evaluation by your physician. - Problem is an acute exacerbation. - Symptoms have improved. Signatures: Dispatcher [employer] EDMS Manuel Montgomery MD MD rn Leal, Jahala, RN RN jl7 Dean Cee RN RN Amanda Agustin Raymond RN RN rr5 Oleg Thakkar MD MD [email or web address] Corrections: (The following items were deleted from the chart) 17:55 16:55 Influenza Screen (A \T\ B)+BA.LAB.BRZ ordered. EDME EDMS 17:56 16:55 CORONAVIRUS+MR.LAB.BRZ ordered. EDME EDMS 19:34 19:34 10/22/2020 19:34 Discharged to Home. Impression: Dehydration; Sinusitis; mh7 Generalized Fatigue/Weakness. Condition is Stable. Forms are Medication Reconciliation Form, Thank You Letter, Antibiotic Education, Prescription Opioid Use. Follow up: Private Physician; When: 1 - 2 days; Reason: Worsening of condition, Recheck today's complaints, Continuance of care, Re-evaluation by your physician. Problem is an acute exacerbation. Symptoms have improved. [facility] 19:39 19:34 10/22/2020 19:34 Discharged to Home. Impression: Dehydration; Sinusitis; rr5 Generalized Fatigue/Weakness; Viral Syndrome. Condition is Stable. Forms are Medication Reconciliation Form, Thank You Letter, Antibiotic Education, Prescription Opioid Use. Follow up: Private Physician; When: 1 - 2 days; Reason: Worsening of condition, Recheck today's complaints, Continuance of care, Re-evaluation by your physician. Problem is an acute exacerbation. Symptoms have improved. mh7
[2020-10-22 19:50] VITALS: TEMP 97.9
[2020-10-22 19:51] LABS: Blood Morphology Comment NOT SEEN (NOT SEEN); Platelet Estimate DECR; White Blood Cell Scan OK (OK)
[2020-10-22 19:53] VITALS: BP 161/80; O2SAT 98
== END 2020-10-22 19:39 | disposition home or self-care (01) ==
LOC: ER 16:25
DX: E86.0 Dehydration (principal); J32.9 Chronic sinusitis, unspecified; B34.9 Viral infection, unspecified; R53.83 Other fatigue; E11.22 Type 2 diabetes mellitus with diabetic chronic kidney disease; N18.6 End stage renal disease; B20 Human immunodeficiency virus [HIV] disease; C46.0 Kaposi's sarcoma of skin; Z20.822 Contact with and (suspected) exposure to COVID-19; Z95.4 Presence of other heart-valve replacement; Z99.2 Dependence on renal dialysis
CPT/HCPCS: 96365; 85025; 80048; 36415; 84145; 0240U; 71045; 99284; J7050

== ENCOUNTER 2020-11-28 20:27 | Emergency (ER) | payer SELFPAY ==
--- OUTSIDE RECORDS SUMMARY | 2020-11-28 20:48 | XMS REPORT | Continuity of Care Document ---
:1955 Author Organization [facility] t Address [address] [place] [address] Care Team Providers Name Role Phone UNKNOWN, REFFERING Primary Care Physician Unavailable MELVIN SHER Attending Clinician Unavailable JOSE MIGUEL BARRY Attending Clinician Unavailable Ruperto [facility] Attending Clinician Lashonda Mon MD Attending Clinician Epic, Transmittal User Attending Clinician Unavailable Jagruti PÉREZ S Attending Clinician Natasha QUIROS S Attending Clinician Unavailable KYA Attending Clinician Unavailable Quita [facility] Attending Clinician Margarita PÉREZ Attending Clinician MARGARITA Attending Clinician Unavailable Joelle Ocampo MD Attending Clinician Arnold Ware MD Attending Clinician Donny Callejas MD Attending Clinician Unavailable JOELLE OCAMPO Attending Clinician Unavailable Ari Lopez MD Attending Clinician Javier FREIRE, R Attending Clinician WANDA Attending Clinician Unavailable BRI CAMPBELL Attending [...] Expiration Date Sour ce Number MEDICAREMEDICARE PART [id number] 2010 Perez rris A & 00:00:00 [facility] 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 synechiae 0-16 Heal th (iris), (iris), 00:00: left eye left eye 00 Chronic Chronic Disease Active 2018-09 [facility] anterior anterior 0-16 Health uveitis, uveitis, 00:00: left left [address] Recent rd Disease Active 2018-09 Macario ris (retinal (retinal 0-16 Health detachment detachment 00:00: ), ), 00 total/subt total/subt otal, left otal, left Drug-induc Drug-induc Disease Active [facility] - [facility] - thrombocyt thrombocyt 00:00: Me dical [...] Luke s - mellitus, mellitus, 00:00: Medi katie type II), type II), 00 Cent er controlled controlled Paroxysmal Paroxysmal Disease Active [facility] atrial atrial 01-08 [facility] - fibrillati fibrillati 00:00: Me dical on on 00 Center Hepatic Hepatic Disease Active [facility] cirrhosis cirrhosis 4-03 Heal th due to due to 00:00: chronic chronic 00 hepatitis hepatitis C C infection infection Chronic Chronic Disease Active [place] hepatitis hepatitis 2-08 Heal th C without C without 00:00: hepatic hepatic 00 coma coma Type 2 Type 2 Disease Active [place] diabetes diabetes 8-28 Health mellitus mellitus 00:00: with with 00 hyperglyce hyperglyce stacey stacey HTN HTN Disease Active [facility] (hypertens (hypertens 3-19 Khushbu kes - ion) ion) 00:00: Medical Center CKD CKD Disease Active L[facility]pez (chronic [...] Chronic Chronic Disease Active [facility] renal renal 7-12 Health insufficie insufficie 00:00: ncy ncy 00 Anemia, Anemia, Disease Active 2010-09 López unspecifie unspecifie 2-15 He alth d d 00:00: 00 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 2008 Leg Leg Disease Active Overview: Dawn swelling swelling 05-04 [facility] Hea lth 00:00: g of this 00 note might be different from the original. Left ... 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) 00:00: 00 ESRD on ESRD on Disease Active [facility] hemodialys hemodialys [facility] Allergies, Adverse Reactions, Alerts Allergy Allergy Status Severity Reaction(s) Onset Inactive Treating Comm ents Source Name Type Date Date Clinician Codeine Drug Active Other (See Pt denies [facility] Comments) 12-02 intoleran kes - nce 00:00: ce to Medical 00 pain meds Center 12/18/18 Codeine Propensi Active Other Pt denies Marcy is ty to 12-02 intoleran Health adverse 00:00: ce to reaction 00 pain meds s to 12/18/18 drug Family History Family Member Diagnosis Comments Start Date Stop Date Source Natural father Diabetes [facility] Natural mother Heart disease [facility] Natural mother Asthma [facility] Natural mother Diabetes [facility] Natural mother Heart [facility] Natural mother Hypertension [facility] Natural daughter Psychiatry [facility] Social History Social Habit Start Date Stop Date Quantity Comments Source Alcohol Comment None since being [facility] Dx'd with HIV, was an occasional drinker. Sex Assigned At [facility] Exposure to Not sure [facility] SARS-CoV-2 (event) Tobacco use and 2020-09-16 2020-09-16 Never used [facility] exposure 00:00:00 00:00:00 Alcohol intake 2020-09-16 2020-09-16 Current [facility] 00:00:00 00:00:00 non-drinker of alcohol (finding) History [facility] Food 2018-10-03 2018-10-03 1 [facility] Worry 00:00:00 00:00:00 History [facility] Food 2018-10-03 2018-10-03 1 [facility] Scarcity 00:00:00 00:00:00 Smoking Status Start Date Stop Date Source Never smoker [facility] Medications Ordered Filled Start Stop Current Ordering Indication Dosage Frequency Signature Comments Components Source Medication Medication Date Date Medication? Clinician (SIG) Name Name raltegravir Yes HIV (human 400mg Q.5D Take 1 Dawn (ISENTRESS) 2-19 immunodefic tablet by [facility] 400 mg 00:00: iency virus mouth 2 tablet 00 infection) times daily. lamiVUDine Yes HIV (human TAKE 2.5 Dawn (EPIVIR) 10 2-19 immunodefic ML BY [facility] mg/mL oral 00:00: iency virus MOUTH solution 00 infection) EVERY DAY. lopinavir-R Yes HIV (human 2{tbl} Q.5D Take 2 Dawn ITONavir 2-19 immunodefic tablets by [email or web address] (KALETRA) 00:00: iency virus mouth 2 200-50 mg 00 infection) times per tablet daily. warfarin Yes Anticoagula Take Perez rris (COUMADIN) - tion one-and-perez Hea lth 10 mg 00:00: adequate lf tablet tablet 00 (15mg) on MWF and one tablet (10mg) all other days.. NOVASCE Yes Weight loss 2{packa Q.5D Take 2 Dawn RENAL 2 KATIE 1-15 of more ge} Packages H ealth oral liquid 00:00: than 10% by mouth 2 00 body weight times daily. JULASCE Yes Weight loss 2{packa Q.5D Take 2 Dawn RENAL 2 KATIE 1-15 of more ge} Packages H ealth oral liquid 00:00: than 10% by mouth 2 00 body weight times daily. NOVASOURCE 2020- No Weight loss 2{packa Q.5D Take 2 Dawn RENAL 2 KATIE 1-15 01-15 of more ge} Packages Health oral liquid 00:00: 00:00 than 10% by mouth 2 00 :00 body weight times daily. NOVASCE 2019-09- No Weight loss 2{packa Q.5D Take 2 Dawn RENAL 2 KATIE 2-11 01-15 of more ge} Packages Health oral liquid 00:00: 00:00 than 10% by mouth 2 00 :00 body weight times daily. atorvastati Yes Mixed 20mg Take 1 [facility] ris n (LIPITOR) 9-22 hyperlipide tablet by [email or web address] 20 mg 00:00: stacey mouth at tablet 00 bedtime nightly. carvediloL Yes Essential TAKE 1 Dawn (COREG) 8-24 hypertensio TABLET BY [email or web address] 12.5 mg 00:00: n MOUTH tablet 00 TWICE DAILY WITH MEALS polyethylen Yes Occult Add Marcy is e glycol 04-08 blood [facility] (GOLYTELY) 00:00: positive drinking 236-22.74-6 00 stool water to .74 -5.86 the fill gram oral bhavna (4 solution liters) and shake. Drink as directed by your doctor.. ergocalcife Yes Vitamin D TAKE 1 Dawn rol 04-08 deficiency CAPSULE BY marybeth [facility] (VITAMIN 00:00: MOUTH ONCE D2) 1,250 00 A WEEK. mcg (50,000 unit) capsule pantoprazol Yes Ulcer of 40mg QD Take 1 Dawn e 8 esophagus tablet by [facility] (PROTONIX) 00:00: without mouth 40 mg 00 bleeding daily. delayed release tablet ISENTRESS 2020- No HIV (human TAKE 1 Dawn 400 mg 7-06 03- immunodefic TABLET BY [email or web address] tablet 00:00: 00:00 iency virus MOUTH 00 :00 infection) TWICE DAILY lamiVUDine 2020- No HIV (human TAKE 2.5 Dawn (EPIVIR) 10 03-10- immunodefic ML BY [email or web address] mg/mL oral 00:00: 00:00 iency virus MOUTH solution 00 :00 infection) EVERY DAY. multivitami 2019- Yes 1{tbl} QD Take [address] [facility] with 7-02 tablet by [employer] - minerals 17:41: mouth Medical tablet 43 daily. Center cholecalcif 2019- Yes Take by [facility] gavin, 7- mouth. [facility] - vitamin D3, 17:41: Medica l 2,000 unit 43 Center Cap lopinavir-r 2019-0 Yes 2{tbl} Q.5D Take [address] itonavir 7-02 tablets by [employer] - (KALETRA) 17:41: mouth 2 Medic al [...] tablet 17:41: daily. Medical 43 Center atorvastati 2019-0 Yes 20mg QD Take [address] [facility] n (LIPITOR) 7-02 by mouth Luke s - 20 MG 17:41: daily. Medical tablet 43 Center ergocalcife Yes [id number] Q7D Take [facility] rol 7-02 50,000 [facility] - (VITAMIN 17:41: Units by Medic al D2) 50,[address] unit a week. capsule calcium Yes 667mg Take 667 [facility] acetate,shayla 7-02 mg by [employer] - sphat bind, 17:41: mouth 3 Med ical (PHOSLO) 43 (three) Center 667 mg times capsule daily with meals. lamiVUDine 2019- Yes HIV 25mg QD Take [address] (EPIVIR) 10 7-02 infection by mouth [facility] - mg/mL 17:41: daily. Medical solution 43 Center carvediloL Yes 12.5mg QD Take 12.[address] [facility] (COREG) 7-02 mg by [facility] - 12.5 MG 17:41: mouth Medical tablet 43 daily. [place] senna-docus 2020- No 2{tbl} QD Take [address] ate -10 09- tablets by Jarad - (SENOKOT S) 00:00: 23:59 mouth Medi katie 8.6-50 mg 00 :00 nightly. Center per tablet HYDROcodone 2020- No 1{tbl} Take [address] -acetaminop -10 09-12 tablet by Khushbu alan (NORCO 00:00: 23:59 mouth Medic al 5-325) 00 :00 every 6 Center 5-325 mg (six) per tablet hours as needed for Pain for up to 10 days. Max Daily Amount: 4 tablets prednisoLON 2019- Yes Chronic 1[drp] QD Instill 1 Dawn E acetate 5-27 uveitis of Drop in H ealth (PRED 00:00: left eye left eye FORTE) 1 % 00 daily. ophthalmic suspension mupirocin 2019- No Open wound Apply to Dawn calcium 01-05 09-30 affected Health (BACTROBAN) 00:00: 00:00 area 3 2 % topical 00 :00 times cream daily. lopinavir-R 2020- No HIV (human 2{tbl} Q.5D Take 2 [place] ITONavir 11-25 02-19 immunodefic tablets by [facility] (KALETRA) 00:00: 00:00 iency virus mouth 2 200-50 mg 00 :00 infection) times per tablet daily. atorvastati 2019- No Mixed 20mg Take 1 Perez rris n (LIPITOR) 11-25 hyperlipide tablet by [facility] 20 mg 00:00: 00:00 stacey mouth at tablet 00 :00 bedtime nightly. carvediloL 2019- No Essential TAKE 1 [place] (COREG) 11-25 hypertensio TABLET BY [facility] 12.5 mg 00:00: 00:00 n MOUTH tablet 00 :00 TWICE DAILY WITH MEALS. raltegravir 2019- No HIV (human 400mg Q.5D Take 1 [place] (ISENTRESS) 11-25 07-10 immunodefic tablet by [facility] 400 mg 00:00: 00:00 iency virus mouth 2 tablet 00 :00 infection) times daily. lamiVUDine 2019- No HIV (human TAKE 2.5 Dawn (EPIVIR) 10 11-25 07-09 immunodefic ML BY [facility] mg/mL oral 00:00: 00:00 iency virus MOUTH solution 00 :00 infection) EVERY DAY. fluocinonid 2019- Yes Phimosis Q.5D Apply to López e (LIDEX) 2-17 affected Health 0.05 % 00:00: area 2 topical 00 times cream daily. warfarin 2020- No Anticoagula Take H arris (COUMADIN) 10-16 tion one-and-perez He alth 10 mg 00:00: 00:00 adequate lf tablet tablet 00 :00 (15mg) on MWF and one tablet (10mg) all other days.. codeine-gua 2019- No Chronic 5mL Take 5 mL [place] iFENesin 09-30 08-07 cough by mouth 3 Hea lth (GUAIFENESI 00:00: 00:00 times N AC) 00 :00 daily as 10-100 mg/5 needed for mL syrup Cough. polyethylen 2018-09 Yes Occult Add Marcy is e glycol 09-09 blood [facility] (GOLYTELY) 00:00: positive drinking [id number] 00 stool water to .74 -5.86 the fill gram oral bhavna (4 solution liters) and shake. Drink as directed by your doctor.. atropine Yes Chronic 1[drp] QD Instill 1 Dawn (ISOPTO 8-14 uveitis of Drop in [facility] ATROPINE) 1 00:00: left eye left eye % 00 daily. ophthalmic solution prednisoLON 2019- No Chronic 1[drp] Instill 1 Dawn E acetate 8 05-27 uveitis of Drop in [facility] (PRED 00:00: 00:00 left eye left eye 4 FORTE) 1 % 00 :00 times ophthalmic daily. suspension pantoprazol 2019- No Ulcer of 40mg QD Take 1 Dawn e 03-18 08-07 esophagus tablet by [facility] (PROTONIX) 00:00: 00:00 without mouth 40 mg 00 :00 bleeding daily. delayed release tablet warfarin Yes Mitral TK 1 T PO Perez rris (COUMADIN) 7-16 valve QD WITH 10 He alth 1 mg tablet 00:00: replaced MG FOR A 00 TOTAL DAILY DOSE OF 11 MG. ergocalcife 2019- No Vitamin D TAKE 1 Dawn rol 15 08-07 deficiency CAPSULE BY alth (VITAMIN 00:00: 00:00 MOUTH ONCE D2) 50,000 00 :00 A WEEK. unit capsule pantoprazol Yes 40mg QD Take 1 [facility] [...] 2 (two) times daily before meals. losartan 2020- No 50mg QD Take 1 CHARISMA Hernandez (COZAAR) 50 5-07 05-06 tablet (50 L ukes - MG tablet 00:00: 23:59 mg total) Me dical 00 :00 by mouth Center daily. triamcinolo 2020- No Bedbug Q.5D Apply to [facility] 10-03 08-07 bite, affected Health (KENALOG) 00:00: 00:00 initial area 2 0.1 % 00 :00 encounter times ointment daily. warfarin 2017-09 Yes See CHARISMA Hernandez (COUMADIN) 2-19 patient [facility] - 6 MG [...] tablet 00:00: 00 VIOS Anabel Yes see [place] 09-30 administra Health 00:00: tion 00 instructio n. calcium 2016- Yes TK ONE C Dawn acetate 6-01 PO WITH Health (PHOSLO) 00:00: MEALS AND 667 mg cap 00 ONE C PO WITH SNACK Immunizations Ordered Immunization Filled Immunization Date Status Commen ts Source Name Name Moderna Sars-cov-2 2020-11-09 Completed [facility] Vaccination 00:00:00 Moderna Sars-cov-2 2020-10-12 Completed [facility] Vaccination 00:00:00 Influenza, Vaccine 2020-05-24 Completed [facility] <FLUCELVAX>(Preservati 00:00:00 ve-Free) Tdap (Tetanus Toxoid, 2018-12-02 Completed [facility] Reduced Diphtheria 00:00:00 Toxoid And Acellular Pertussis, Absorbed) Influenza Vaccine, 2017-08-23 Completed [facility] Seasonal, Injectable 00:00:00 PPV 23 (Pneumococcal 2017-08-23 Completed [facility] Polysaccharide 23 00:00:00 Valent) Influenza Vaccine 2016-10-31 Completed [facility] 00:00:00 PPD 2014-10-19 Completed [facility] 00:00:00 Influenza Vaccine 2014-10-19 Completed [facility] 00:00:00 Pneumococcal 13-valent 2013-10-29 Completed [facility] conj 0.5 mL injection 00:00:00 PPD 2013-07-27 Completed [facility] 00:00:00 Influenza Vaccine 2013-05-26 Completed [facility] 00:00:00 PPD 2012-06-27 Completed [facility] 00:00:00 Influenza Vaccine 2012-06-27 Completed [facility] 00:00:00 Influenza Vaccine 2011-05-29 Completed [facility] 00:00:00 Hepatitis B Vaccine 2011-01-11 Completed [facility] 00:00:00 Influenza Vaccine 2010-06-27 Completed [facility] 00:00:00 Hepatitis B Vaccine 2010-06-02 Completed [facility] 00:00:00 Hepatitis B Vaccine 2010-05-04 Completed [facility] 00:00:00 Influenza Vaccine 2009-07-12 Completed [facility] 00:00:00 PPD 2009-03-28 Completed [facility] 00:00:00 Tdap Tetanus, 2009-03-[address] [facility] th diphtheria, acellular 00:00:00 pertussis Vaccine PPV 23 Pneumococcal 2009-03-24 Completed [facility] Polysaccaride 00:00:00 Vital Signs Vital Name Observation Time Observation Value Comments Source Systolic blood 2020-09-16 13:01:00 169 mm[Hg] [facility] pressure Diastolic blood 2020-09-16 13:01:00 91 mm[Hg] [facility] pressure Heart rate 2020-09-16 13:01:00 87 /min [facility] Body temperature 2020-09-16 13:01:00 36.89 Marjorie [facility] Respiratory rate 2020-09-16 13:01:00 18 /min [facility] Body height 2020-09-16 13:01:00 170.2 cm [facility] Body weight 2020-09-16 13:01:00 68.221 kg [facility] BMI 2020-09-16 13:01:00 23.56 kg/m2 [facility] ealt Oxygen saturation in 2020-09-16 13:01:00 100 /min [facility] Arterial blood by Pulse oximetry Respiratory rate 2020-04-21 23:45:00 17 /min [facility] Oxygen saturation in 2020-04-21 23:45:00 98 /min [facility] Arterial blood by Medical Ce nter Pulse oximetry Systolic blood 2020-04-21 23:45:00 173 mm[Hg] [facility] Diastolic blood 2020-04-21 23:45:00 84 mm[Hg] [facility] Heart rate 2020-04-21 23:45:00 87 /min [facility] Body temperature 2020-04-21 23:45:00 36.72 Marjorie [facility] Body height 2020-04-21 20:57:00 170.2 cm [facility] Body weight 2020-04-21 20:57:00 69.854 kg [facility] BMI 2020-04-21 20:57:00 24.12 kg/m2 [facility] Procedures Procedure Date / Time Performing Clinician Source Performed PTINR POC 2020-11-24 13:44:00 Derrick Live PTINR POC 2020-10-27 12:17:00 Derrick Live PTINR POC 2020-10-06 11:24:00 Derrick Live U/S ABDOMEN 2020-09-23 07:59:04 Gurinder Chand PT/INR 2020-08-12 09:07:00 Gurinder Chand CBC/DIFF 2020-08-12 09:07:00 Gurinder Chand CD4/CD8 RATIO GRP 2020-08-12 09:07:00 Gurinder Chand [facility] COMPREHENSIVE METABOLIC 2020-08-12 09:07:00 Gurinder Chand [facility] PANEL HIV RNA VIRAL LOAD 2020-08-12 09:07:00 Gurinder Chand SYPHILIS MONITOR FOR 2020-08-12 09:07:00 Gurinder Chand [facility] TREATMENT HCV RNA QUANT, PCR 2020-08-12 09:07:00 Gurinder Chand [facility] CBC 2020-08-12 09:07:00 Gurinder Chand Healt h [id number] 2020-06-29 00:00:00 ENCPL [id number] 2020-06-29 00:00:00 ENCPL [id number] 2020-06-29 00:00:00 ENCPL [id number] 2020-06-29 00:00:00 ENCPL [id number] 2020-06-29 00:00:00 ENCPL [id number] 2020-06-29 00:00:00 ENCPL [id number] 2020-06-29 00:00:00 ENCPL [id number] 2020-06-29 00:00:00 ENCPL [id number] 2020-06-29 00:00:00 ENCPL [id number] 2020-06-29 00:00:00 ENCPL PTINR POC 2020-05-04 08:03:00 [facility] REPORT OF PROCEDURE - 2020-04-26 13:01:45 Provider, [facility] ED ECG INTERPRETATION 2020-04-22 00:23:00 Margarita [facility] CBC W/PLT COUNT & AUTO 2020-04-21 22:30:00 Margarita [facility] BASIC METABOLIC PANEL (7) 2020-04-21 22:30:00 Margarita [facility] PT/APTT 2020-04-21 22:30:00 Margarita [facility] B-TYPE NATRIURETIC FACTOR 2020-04-21 22:30:00 Margarita [facility] (BNP) [facility] TROPONIN I 2020-04-21 22:30:00 Margarita [facility] XR CHEST 2 VIEWS 2020-04-21 22:05:00 Margarita [facility] ECG 12-LEAD 2020-04-21 20:57:00 Margarita [facility] PTINR POC 2020-04-20 08:15:00 [facility] U/S ABDOMEN 2020-04-11 07:49:22 Jagruti Ryanisaiasmarybeth [facility] DIABETIC FOOT EXAM 2020-04-08 10:40:00 Jenna Chandmarybeth [facility] PTINR POC 2020-04-06 07:54:00 [facility] CBC/DIFF 2020-03-25 09:20:00 Jagruti Gurinder [facility] CD4/CD8 RATIO GRP 2020-03-25 09:20:00 Jagruti Ryanisaiasmarybeth Casiano lt COMPREHENSIVE METABOLIC 2020-03-25 09:20:00 Jenna Chandmarybeth [facility] PANEL HIV RNA VIRAL LOAD 2020-03-25 09:20:00 Jagruti Ryanisaiasmarybeth Kovacs alth LIPID PROFILE 2020-03-25 09:20:00 Jagruti Gurinder Barber h HEMOGLOBIN A1C 2020-03-25 09:20:00 Jagruti Ryanisaiasmarybeth [facility] CBC 2020-03-25 09:20:00 Gurinder Chand Xavier Hensleyt h PTINR POC 2020-03-23 08:13:00 Manuel Devlin [facility]al[facility] RHYTHM STRIP - SCAN 2020-03-07 11:30:[address] [facility] [id number] 2020-03-05 00:00:00 ENCPL [id number] 2020-03-05 00:00:00 ENCPL [id number] 2020-03-05 00:00:00 ENCPL [id number] 2020-03-05 00:00:00 ENCPL [id number] 2020-03-05 00:00:00 ENCPL [id number] 2020-03-05 00:00:00 ENCPL [id number] 2020-03-05 00:00:00 ENCPL [id number] 2020-03-05 00:00:00 ENCPL [id number] 2020-03-05 00:00:00 ENCPL [id number] 2020-03-05 00:00:00 ENCPL [id number] 2020-03-05 00:00:00 ENCPL [id number] 2020-03-05 00:00:00 ENCPL [id number] 2020-03-05 00:00:00 ENCPL [id number] 2020-03-05 00:00:00 ENCPL [id number] 2020-03-05 00:00:00 ENCPL [id number] 2020-03-05 00:00:00 ENCPL [id number] 2020-03-05 00:00:00 ENCPL [id number] 2020-03-05 00:00:00 ENCPL [id number] 2020-03-05 00:00:00 ENCPL [id number] 2020-03-05 00:00:00 ENCPL [id number] 2020-03-05 00:00:00 ENCPL POCT-GLUCOSE METER 2020-03-03 15:17:00 Florencio Ocampo [facility] POCT-GLUCOSE METER 2020-03-03 12:24:00 Florencio Ocampo [facility] HEMODIALYSIS INPATIENT 2020-03-03 12:23:00 Abena Squires [facility] APTT 2020-03-03 09:05:00 Florencio Ocampo [facility] APTT 2020-03-03 06:33:00 Florencio Ocampo [facility] BASIC METABOLIC PANEL (7) 2020-03-03 04:20:00 Florencio Ocampo [facility] PROTHROMBIN TIME/INR 2020-03-03 04:20:00 Florencio Ocampo [facility] CBC W/PLT COUNT & AUTO 2020-03-03 04:19:00 Florencio Ocampo [facility] POCT-GLUCOSE METER 2020-03-02 21:17:00 Florencio Ocampo [facility] APTT 2020-03-02 20:45:00 Florencio Ocampo [facility] APTT 2020-03-02 18:38:00 Florencio Ocampo [facility] POCT-GLUCOSE METER 2020-03-02 16:57:00 Florencio Ocampo [facility] POCT-GLUCOSE METER 2020-03-02 11:53:00 Florencio Ocampo [facility] APTT 2020-03-02 11:29:00 Florencio Ocampo [facility] POCT-GLUCOSE METER 2020-03-02 08:16:00 Florencio Ocampo [facility] APTT 2020-03-02 05:09:00 Florencio Ocampo [facility] BASIC METABOLIC PANEL (7) 2020-03-02 05:08:00 Florencio Ocamporamakrishna [facility] CBC W/PLT COUNT & AUTO 2020-03-02 05:08:00 Florencio Ocampoliz [facility] PROTHROMBIN TIME/INR 2020-03-02 05:08:00 Florencio Ocamporamakrishna [facility] POCT-GLUCOSE METER 2020-03-01 23:01:00 Florencio Ocampoliz [facility] APTT 2020-03-01 22:26:00 Florencio Ocamporamakrishna [facility] APTT 2020-03-01 15:10:00 Folrencio Ocamporamakrishna [facility] PT/APTT 2020-03-01 15:10:00 Justin Florencio Ahramakrishna [facility] HEMODIALYSIS INPATIENT 2020-03-01 12:40:00 Abena Squires [facility] BASIC METABOLIC PANEL (7) 2020-03-01 11:33:00 Florencio Ocamporamakrishna [facility] BASIC METABOLIC PANEL (7) 2020-03-01 05:43:00 Florencio Ocamporamakrishna [facility] CBC W/PLT COUNT & AUTO 2020-03-01 05:43:00 Florencio Ocamporamakrishna [facility] PROTHROMBIN TIME/INR 2020-03-01 05:43:00 Florencio Ocamporamakrishna [facility] APTT 2020-03-01 05:43:00 Florencio Ocampo [facility] APTT 2020-02-29 22:37:00 Florencio Ocampo [facility] POCT-GLUCOSE METER 2020-02-29 22:19:00 Florencio Ocampo [facility] POCT-GLUCOSE METER 2020-02-29 15:25:00 Florencio Ocampo [facility] APTT 2020-02-29 15:17:00 Florencio Ocampo [facility] POCT-GLUCOSE METER 2020-02-29 11:38:00 Florencio Ocampo [facility] APTT 2020-02-29 09:03:00 Florencio Ocampo [facility] [facility] PROTHROMBIN TIME/INR 2020-02-29 09:03:00 Mihai Estrella [facility] BASIC METABOLIC PANEL (7) 2020-02-29 00:51:00 Florencio Ocampo [facility] CBC W/PLT COUNT & AUTO 2020-02-29 00:51:00 Florencio Ocampo [facility] APTT 2020-02-29 00:51:00 Florencio Ocampo [facility] POCT-GLUCOSE METER 2020-02-28 23:48:00 Florencio Ocampo [facility] APTT 2020-02-28 18:36:00 Florencio Ocampo [facility] POCT-GLUCOSE METER 2020-02-28 18:03:00 Florencio Ocampo [facility] TRANSFUSION SERVICE 2020-02-28 18:00:38 Heriberto Rosario [facility] APTT 2020-02-28 17:12:00 Florencio Ocampo [facility] POCT-GLUCOSE METER 2020-02-28 12:02:00 Florencio Ocampo [facility] APTT 2020-02-28 10:56:00 Florencio Ocampo [facility] POCT-GLUCOSE METER 2020-02-28 06:38:00 Mckennajose malexandraFlorencio [facility] BASIC METABOLIC PANEL (7) 2020-02-28 04:31:00 Florencio Ocampo [facility] CBC W/PLT COUNT & AUTO 2020-02-28 04:31:00 Florencio Ocampo [facility] POCT-GLUCOSE METER 2020-02-28 02:14:00 Florencio Ocampo [facility] FL FLUORO NON-SPECIFIC UP 2020-02-28 01:47:00 Stoney Callejas [facility] TO 1 HOUR [facility] ORIF,FEMUR 2020-02-27 23:58:00 Sukumar Callejas [facility] PROCEDURE W/ C-ARM 2020-02-27 23:58:00 Sukumar Callejas [facility] APTT 2020-02-27 19:46:00 Florencio Ocampo [facility] HEMODIALYSIS INPATIENT 2020-02-27 18:35:06 Abena Squires [facility] POCT-GLUCOSE METER 2020-02-27 17:44:00 Florencio Ocampo [facility] IRON, TIBC, % SAT. 2020-02-27 15:19:00 Abena Squires [facility] (WITHOUT FERRITIN) Medical Cente r FERRITIN 2020-02-27 15:19:00 Florencio Ocampo [facility] PLATELET COUNT 2020-02-27 12:30:00 Florencio Ocampo [facility] APTT 2020-02-27 12:30:00 Florencio Ocampo ramakrishna [facility] POCT-GLUCOSE METER 2020-02-27 12:01:00 Florencio Ocampo [facility] HEPATITIS B SURFACE 2020-02-27 10:18:00 Abena Squires [facility] ANTIBODY IDENTIFICATION 2020-02-27 08:56:00 Justin Florencio Hawk [facility] XR WRIST 2 VIEWS LEFT 2020-02-27 08:49:00 Florencio Ocampo [facility] POTASSIUM 2020-02-27 07:53:00 Florencio Ocampo [facility] XR HIP 2 VIEWS LEFT 2020-02-27 07:02:00 Kay Peoples [facility] XR PELVIS 1 OR 2 VIEWS 2020-02-27 06:56:00 Kay Peoples [facility] POCT-GLUCOSE METER 2020-02-27 06:15:00 Florencio Ocampo [facility] SARS-COV2/RT-PCR ([facility] & 2020-02-27 01:52:00 Caleb Martinez [facility] - REF LABS) [facility] CBC W/PLT COUNT & AUTO 2020-02-27 01:23:00 Caleb Martinez [facility] COMPREHENSIVE METABOLIC 2020-02-27 01:23:[address] [facility] PROTHROMBIN TIME/INR 2020-02-27 01:23:00 Caleb Martinez [facility] MAGNESIUM 2020-02-27 01:23:00 Caleb Martinez [facility] PHOSPHORUS 2020-02-27 01:23:00 Caleb Martinez [facility] TYPE AND SCREEN, 2020-02-27 01:23:00 Caleb Martinez [facility] s AUTOMATED [facility] PTINR POC 2020-02-24 07:48:00 Manuel Devlin h PTINR POC 2020-02-10 08:02:00 Manuel Devlin h PTINR POC 2020-01-27 07:59:00 Manuel Devlin h PTINR POC 2020-01-11 08:30:00 Manuel Devlin h PT/INR 2020-01-06 09:27:00 Manuel [facility] RNA QUANT, PCR 2019-12-25 08:26:00 Gurinder Chand [facility] CBC/DIFF 2019-12-25 08:26:00 [facility] CD4/CD8 RATIO GRP 2019-12-25 08:26:00 Gurinder Chand [facility] COMPREHENSIVE METABOLIC 2019-12-25 08:26:00 Gurinder Chand [facility] PANEL HIV RNA VIRAL LOAD 2019-12-25 08:26:00 Gurinder Chand [facility] HEPATITIS C GENOTYPE 2019-12-25 08:26:00 Gurinder Chand Xavier Dawn [facility] B-TYPE NATRIURETIC 2019-12-25 08:26:00 Gurinder Chand Xavier [facility] PEPTIDE (BNP) PT/INR 2019-12-25 08:26:00 Jagruti Ryanisaiasmarybeth Dawn [facility] h LIPID PROFILE 2019-12-25 08:26:00 [facility] CBC 2019-12-25 08:26:00 Gurinder Chand [facility] h RBC MORPHOLOGY-WAM 2019-12-25 08:26:00 Gurinder Chand [facility] [id number] 2019-01-08 00:00:00 ENCPL [id number] 2019-01-08 00:00:00 ENCPL [id number] 2019-01-08 00:00:00 ENCPL [id number] 2019-01-08 00:00:00 ENCPL Plan of Care Planned Activity Planned Date Details Comments Source Future Scheduled 2028-12-02 DTAP/TDAP/TD VACCINES [facility] 00:00:00 (2 - Td) [code = Medical Rolanda ter DTAP/TDAP/TD VACCINES (2 - Td)] Future Scheduled 2023-03-[address] [facility] 00:[facility]00 (procedure) [code = Medical Center 73220324] Future Scheduled 2021-04-08 DM Foot Exam (Yearly) [facility] 00:00:00 [code = DM Foot Exam (Yearly)] Future Scheduled 2021-03-25 Hemoglobin A1c [facility] 00:00:00 measurement (procedure) [code = 32729180] Future Scheduled 2020-09-[address] [facility] - Test 00:00:00 (12+) [code = Medical Center DEPRESSION SCREENING (12+)] Future Scheduled 2020-06-17 DM Retinal Exam Dawn [...] Medica l Center colon (procedure) [code = 526320298] Future Scheduled 2019-06-[address] [facility] Test 00:00:00 measurement Medical Center (procedure) [code = 93030158] Future Scheduled 2018-11-22 Urine screening for [facility] 00:00:00 protein (procedure) [code = 284729111] Future Scheduled 2018-08-[address] [...] FIRST YEAR if no IPPE)] Future Scheduled 2007 SHINGLES VACCINES ([address] [facility] - Test 00:00:00 of 2) [code = SHINGLES Medic al Center VACCINES (1 of 2)] Future Scheduled 2007 [facility] 00:00:00 malignant neoplasm of colon (procedure) [code = 278702920] Future Scheduled 2007 [facility] 00:00:00 malignant neoplasm of colon (procedure) [code = 624064063] Future Scheduled 2007 [facility] 00:00:00 malignant neoplasm of colon (procedure) [code = 738215103] Future Scheduled 2007 [facility] 00:00:00 malignant neoplasm of colon (procedure) [code = 811477212] Future Scheduled 2007 [facility] Test 00:00:00 malignant neoplasm of colon (procedure) [code = 790530450] Future Scheduled 1975 HEPATITIS C SCRE[facility]ING [facility] Test 00:00:00 [code = HEPATITIS C Medical Center SCREENING] Future Scheduled 1967 DIABETIC EYE EXAM [facility] - Test 00:00:00 [code = DIABETIC EYE Medical Center EXAM] Future Scheduled [address] Test 00:[facility]:00 examination Medical Center (regime/therapy) [code = 982409196] Future Scheduled 1967 Urine screening for [facility] Test 00:00:00 protein (procedure) Medical Center [code = 871071640] Encounters Start End Encounter Admission Attending Care Care Encounter Source Date/Time Date/Time Type Type Clinicians Facility Department ID 2020-07-06 Outpatient MELONIE SHANNON ENCCLR [id number] ENCCLR 21:26:21 Toy CHARLES 2020-12-19 2020-12-19 Outpatient JOSE MIGUEL [facility] [id number] [place] 00:00:00 00:00:00 [facility] 2020-11-24 2020-11-24 Outpatient [facility] [id number] [place] 13:25:44 13:59:48 [facility] 2020-11-10 2020-11-10 Outpatient [facility] [id number] [place] 00:00:00 00:00:00 [facility] 2020-11-09 2020-11-[address] [facility] [id number] [place] 07:51:58 08:14:33 [facility] 2020-10-27 2020-10-27 Outpatient [facility] [id number] Dawn 12:02:34 12:25:02 [facility] 2020-10-20 2020-10-20 Outpatient [facility] [id number] [place] [facility]00:00 [facility] 2020-10-20 Outpatient [facility] [id number] [place] 00:00:00 00:00:00 [facility] 2020-10-06 2020-10-06 Outpatient [facility] [id number] [place] 11:11:47 11:11:47 [facility] 2020-05-09 2020-06-28 Inpatient VO, LE [facility] 025 [id number] [place] 00:00:00 00:00:[address] 2019-11-09 2019-11-09 Outpatient [facility] [id number] [facility] 08:51:00 08:51:00 2019-09-12 2019-09-12 Emergency MUÑOZ, [facility] 064 [id number] [place] 00:00:00 00:00:00 TU 347 Method i 2017-11-18 2017-11-20 Inpatient C AMIE, [facility] [id number] [facility] 13:43:00 13:54:00 MAYLIN 2017-11-07 2017-11-07 Emergency E [facility] [id number] [facility] 20:22:00 20:22:00 2017-10-06 2017-10-06 Emergency E ELIANA, [facility] [id number] [facility] 14:25:00 14:25:00 NEEL Results Test Description Test Time Test Comments Results Result Comments Source POCT PTINR POC docked device 2020-11-24 13:57:00 Test Item Value Reference Range Interpretation Comme nts PT POC (test code = 27.7 See_Comment HH [Automa jayla message] The [id number]) system which ge nerated this result transmit jayla reference range: 10.9 - 1 3.0 Seconds. The reference r sylvia was not used to interpr et this result as kait l/abnormal. INR POC (test code = 2.4 Refer to INR SUGGEST ED THERAPEUTIC 50567890) therapeutic ranges RANGES: I NR 2.0-3.0 for MODERATE INTENS ITY ANTICOAGULATION INR 2.5-3.5 for HIGH INTENS ITY ANTICOAGULATION Lab Interpretation (test Abnormal code = 98002-7) [facility] [id number] 19:14:07IMPRESSION:1. Heterogenous/coarsened echotexture with increased echogenicity ofthe [...] the resident'sinterpretation.Dictated By: Anup Cash, 09/23/2020 8:20 AMI have r eviewed the study and agree with the findings in this report.Signed By: Sharath Guallpa MD, 09/25/2020 7:14 PMHarris HealthECG 12 [id number] 20:10:26 Interface, External Ris In - 2020 8:10 PM CDTVentricular Rate 86 BPMAtrial Rate 88 BPMQRS Duration 76 msQ-T Interval 382 msQTC Calculation(Bazett) 457 msR Taft 50 degreesT Taft [address] abnormalityAbnormal ECGWhen compared with ECG of 16-DEC-2018 13:58,Currentundetermined rhythm precludes rhythm comparison, needs reviewConfirmed by MD SHAYNA, GUSTAVO ([id number]) on 2020 8:10:24 [facility] [id number] 00:23:00Juliana Avila MD 04/22/2020 1:24 AMECG/EKG InterpretationDate/Time: 04/22/2020 1:24 AMPerformed by: Juliana Avila MDAuthorized by: Juliana Avila MD The ECG was interpreted by ED physician. The ECG is interpreted as sinus rhythm. Rate is normal rate. Heart rate is 86 BPM.Conduction: conduction normal. ST segments normal. T waves normal.[facility] CenterTroponin [id number] 23:28:00 Test Item Value Reference Range Interpretation Comments Troponin I (test code = 0.04 ng/mL 0-0.03 H 40797-4) ALVIN (test code = ALVIN) Troponin I [...] L Lab Interpretation (test Abnormal code = 82122-6) [facility] [id number] 23:28:00 Test Item Value Reference Range Interpretation [...] failure, acidosis, acute neurological disease, and persistent tachyarrhythmia.Dance Coach ID - PIAYA LBasic Metabolic [id number] 23:26:00 Test Item Value Reference Range Interpretation Comments Sodium (test code = 137 meq/L 836-407 1352-2) Potassium (test code = 4.2 meq/L 3.5-5.1 2823-3) Chloride (test code = 94 meq/L 98-107 L 2075-0) CO2 (test code = 34 meq/L 22-29 H 2028-9) BUN (test code = 21 mg/dL 7-21 3094-0) Creatinine (test code 4.95 mg/dL 0.57-1.25 H = 2160-0) Glucose (test code = 126 mg/dL 70-105 H 2345-7) Calcium (test code = 9.4 mg/dL 8.4-10.2 63149-4) EGFR (test code = 14 mL/min/1.73 [place] [address]-4) NOT ACCURATE CREATININE CLEARANCE IN PREDICTING GLOMERULAR FILTRATION RATE . ESTIMATED GFR I S NOT APPLICABLE FOR DIALYSIS PATIENTS. ALVIN (test code = ALVIN) Dance Coach ID - AKSHAT L Lab Interpretation Abnormal (test code = 29110-3) [facility] [id number] 23:26:00 Test Item Value Reference Range Interpretation [...] S NOT APPLICABLE FOR DIALYSIS PATIEN TS. Dance Coach ID - AKSHAT LB-type Natriuretic Factor (BNP)2020-04-21 23:25:00 Test Item Value Reference Range Interpretation Comments BNP (test code = 22912-3) 1507 pg/mL 0-100 H ALVIN (test code = ALVIN) Dance Coach ID - AKSHAT Chapman Lab Interpretation (test Abnormal code = 35028-7) [facility] Center[facility] NATRIURETIC FACTOR (BNP)2020-04-21 23:25:00 Test Item Value Reference Range Interpretation Comments B-TYPE NATRIURETIC PEPTIDE 1507 pg/mL 0-100 H (BEAKER) (test code = 700) Dance Coach ID Patel ODEN LPT/[id number] 23:09:00 Test Item Value Reference Interpretation Comments Range Protime (test code = 25.1 See_Comment H [Autom ated 5902-2) message] The system which generated this result transmitted reference range : 11.9 - 14.2 seconds. The reference range was not used to interpret this result as normal/abnormal . INR (test code = 2.34 See_Comment [Automated 2631-6) message] The system which generated this result transmitted reference range : <=5.90. The reference range was not used to interpret this result as normal/abnormal . PTT (test code = 38.7 See_Comment H [Automated 09682-2) message] The system which generated this result [...] valves. Lab Interpretation Abnormal (test code = 32065-9) [facility] CenterPT/[id number] 23:09:00 Test Item Value Reference Range Interpretation [...] heart valves.CBC with platelet count + automated [id number] 22:49:00 Test Item Value Reference Range Interpretation Comments WBC (test code = 6690-2) 6.2 See_Comment [A utomated message] The system Douban generated this result transmitted ref erence range: 3.5 - 10 .5 K/L. The refe rence range was not u sed to interpret this result as normal/abnor mal. RBC (test code = 789-8) 2.92 See_Comment L [Au tomated message] The system Douban generated this result transmitted ref erence range: 4.63 - 6 .08 M/L. The refe rence range was not u sed to interpret this result as normal/abnor mal. MCHC (test code = 786-4) 31.5 See_Comment L [A utomated message] The system Dou[employer] generated this result transmitted ref erence range: [...] L [Aut omated message] 777-3) The system Douban generated this result transmitted ref erence range: 150 - 45 0 K/CU MM. The referen ce range was not u sed to interpret this result as normal/abnor mal. MPV (test code = 9.0 fL 9.4-12.4 L 28518-1) nRBC (test code = 413) 0 See_Comment [Aut omated message] The system Douban generated this result transmitted ref erence range: [...] See_Comment [Aut omated message] 670) The system Douban generated this result transmitted ref erence range: 1.78 - 5 .38 K/L. The refe rence range was not u sed to interpret this result as normal/abnor mal. # Lymphs (test code = 1.23 See_Comment L [Auto mated message] 414) The system Douban generated this result transmitted ref erence range: 1.32 - 3 .57 K/L. The refe rence range was not u sed to interpret this result as normal/abnor mal. # Monos (test code = 0.82 See_Comment [Autom ated message] 415) The system Douban generated this result transmitted ref erence range: 0.30 - 0 .82 K/L. The refe rence range was not u sed to interpret this result as normal/abnor mal. # Eos (test code = 416) 0.12 See_Comment [Au tomated message] The system Douban generated this result transmitted ref erence range: 0.04 - 0 .54 K/L. The refe rence range was not u sed to interpret this result as normal/abnor mal. # Baso (test code = 417) 0.03 See_Comment [A utomated message] The system Douban generated this result transmitted ref erence range: 0.01 - 0 .08 K/L. The refe rence range was not u sed to interpret this result as normal/abnor mal. Immature 0 % 0-1 Granulocytes-Relative (test code = 2801) Lab Interpretation (test Abnormal code = 42689-6) [facility] W/PLT COUNT & AUTO [id number] 22:49:00 Test Item Value Reference Range Interpretation [...] (test code = 2801) RAD, CHEST, 2 [id number] 22:26:00Reason for exam:->SHORTNESS OF BREATH FINAL REPORT [...] Verified Date/Time: 04/21/2020 22:26:38 XR chest 2 [id number] 22:26:00Interface, External Ris In - 04/21/2020 10:28 [...] Edenilson Gutierrez MDReport Verified Date/Time: 04/21/2020 22:26:38 [facility] [id number] 10:40:00Gurinder Chand MD 04/08/2020 1:18 PMDiabetic Foot Exam was performed at 04/08/2020 9:45 AM. Right foot sensation is normal, right foot pulses are reduced, right foot appearance is normal. Left foot sensation is normal, left foot pulses are reduced, left foot appearance is normal.[facility]-Glucose [id number] 15:36:00 Test Item Value Reference Range Interpretation Comments POC-Glucose Meter (test 133 mg/dL 70-110 H : TE STED AT [facility] code = 1538) [address] [facility], 770 30: Dance Coach/Techni kush ID = [id number] for Eulalio Samson debbie Lab Interpretation (test Abnormal code = 45167-2) [facility] CenterPOCT[facility]SE [id number] 15:36:00 Test Item Value Reference Range Interpretation Comments POC-GLUCOSE METER 133 mg/dL 70-110 H : TESTED A T [facility] 6720 (BEAKER) (test code = FOSTER Paul [facility], 1538) [address]: Dance Coach/Techni kush ID = [id number] for Phyllis Rao POCT-GLUCOSE [id number] 12:38:00 Test Item Value Reference Range Interpretation Comments POC-GLUCOSE METER 100 mg/dL 70-110 : TESTED A T [facility] 6720 (JARROD) (test code = FOSTER Paul [facility], 1538) [address]: Dance Coach/Techni kush ID = [id number] for Phyllis Rao HEMODIALYSIS [id number] 12:23:00Chu, Simeon Gallego RN 03/03/2020 12:24 PMHD [...] Lab Results Component Value Date HEPBSAG Nonreactive 02/27/2020[facility] 09:28:00 Test Item Value Reference Range Interpretation Comments PTT (test code = 67.8 See_Comment H [Automated message] 16904-6) The system Douban generated this result transmitted ref erence range: 22.5 - 3 6.0 seconds. The reference range was not used to int erpret this result as normal/abnormal . Lab Interpretation (test Abnormal code = 87105-5) [facility]APTT2020-[facility] 09:28:00 Test Item Value Reference Range Interpretation Comments PARTIAL THROMBOPLASTIN TIME 67.8 seconds 22.5-36.0 H (JARROD) (test code = 760) [id number] 07:14:00 Test Item Value Reference Range Interpretation Comments PARTIAL THROMBOPLASTIN TIME 146.9 seconds 22.5-36.0 H (BEAKER) (test code = 760) CBC W/PLT COUNT & AUTO [id number] 05:40:00 Test Item Value Reference Range Interpretation [...] (BEAKER) (test code = 2801) BASIC METABOLIC [id number] 05:24:00 Test Item Value Reference Range Interpretation [...] S NOT APPLICABLE FOR DIALYSIS PATIEN TS. Dance Coach ID - LORENZO WDaily Prothrombin time/INR while on [id number] 04:52:00 Test Item Value Reference Interpretation Comments Range Protime (test code = 32.1 See_Comment H [Autom ated 3892-2) message] The system which generated this result transmitted reference range : 11.9 - 14.2 seconds. The reference range was not used to interpret this result as normal/abnormal . INR (test code = 3.2 See_Comment [Automated 7971-6) message] The system which generated this result [...] warfarin. Lab Interpretation Abnormal (test code = 48835-2) [facility] CenterPROTHROMBIN [id number] 04:52:00 Test Item Value Reference Range Interpretation [...] H : TESTED A T [facility] 6720 (PostlingAKER) (test code = [employer] [place], 1538) [address]: Dance Coach/Techni kush ID = [id number] for KATAI RAO [id number] 21:05:00 Test Item Value Reference Range Interpretation Comments PARTIAL THROMBOPLASTIN TIME 66.8 seconds 22.5-36.0 H (BEAKER) (test code = 760) [id number] 19:49:00 Test Item Value Reference Range Interpretation Comments PARTIAL THROMBOPLASTIN TIME > seconds 22.5-36.0 HH (BEAKER) (test code = 760) POCT-GLUCOSE [id number] 17:09:00 Test Item Value Reference Range Interpretation Comments POC-GLUCOSE METER 145 mg/dL 70-110 H : TESTED A T [facility] 6720 (BEAKER) (test code = [employer] [facility], 1538) [address]: Dance Coach/Techni kush ID = [id number] for Ra mirez, Christina POCT-GLUCOSE [id number] 12:10:00 Test Item Value Reference Range Interpretation Comments POC-GLUCOSE METER 113 mg/dL 70-110 H : TESTED A T [facility] 6720 (BEAKER) (test code = OFSTER Paul [facility], 1538) [address]: Dance Coach/Techni kush ID = [id number] for Christina Chisholm [id number] 11:50:00 Test Item Value Reference Range Interpretation Comments PARTIAL THROMBOPLASTIN TIME 96.6 seconds 22.5-36.0 H (BEAKER) (test code = 760) POCT-GLUCOSE [id number] 08:28:00 Test Item Value Reference Range Interpretation Comments POC-GLUCOSE METER 150 mg/dL 70-110 H : TESTED A T [facility] 6720 (BEAKER) (test code = [facility] Humberto [facility], 1538) [address]: Dance Coach/Techni kush ID = [id number] for Christina Chisholm BASIC METABOLIC [id number] 06:15:00 Test Item Value Reference Range Interpretation [...] S NOT APPLICABLE FOR DIALYSIS PATIEN TS. Dance Coach ID - BSCBC W/PLT COUNT & AUTO [id number] 06:12:00 Test Item Value Reference Range Interpretation [...] 0-1 PERCENT (BEAKER) (test code = 2801) [id number] 05:43:00 Test Item Value Reference Range Interpretation Comments PARTIAL THROMBOPLASTIN TIME 61.8 seconds 22.5-36.0 H (BEAKER) (test code = 760) PROTHROMBIN [id number] 05:42:00 Test Item Value Reference Range Interpretation [...] H : TESTED A T [facility] 6720 (BEAKER) (test code = MARIA GOSMAN H[place] [employer] [place], 1538) [address]: Dance Coach/Techni kush ID = [id number] for AN BENITA ERNANDEZ [id number] 22:49:00 Test Item Value Reference Range Interpretation Comments PARTIAL THROMBOPLASTIN TIME 86.0 seconds 22.5-36.0 H (BEAKER) (test code = 760) [id number] 15:29:00 Test Item Value Reference Range Interpretation [...] INR is2.5-3.5 for patients wiht mechanical heart valves.[id number] 15:29:00 Test Item Value Reference Range Interpretation Comments PARTIAL THROMBOPLASTIN TIME 90.0 seconds 22.5-36.0 H (BEAKER) (test code = 760) HEMODIALYSIS [id number] 12:40:00Maria Isabel Kelly RN 03/01/2020 2:57 PMProcedure [...] BP: 112/78 Pulse: 97 Resp: Temp: SpO2:98%[facility] METABOLIC [id number] 12:20:00 Test Item Value Reference Range Interpretation [...] S NOT APPLICABLE FOR DIALYSIS PATIEN TS. Dance Coach ID - ANTONIA FCBC W/PLT COUNT & AUTO [id number] 07:29:00 Test Item Value Reference Range Interpretation [...] 0-1 PERCENT (BEAKER) (test code = 2801) [id number] 07:20:00 Test Item Value Reference Range Interpretation Comments PARTIAL THROMBOPLASTIN TIME 61.2 seconds 22.5-36.0 H (BEAKER) (test code = 760) While on warfarin.BASIC METABOLIC [id number] 07:06:00 Test Item Value Reference Range Interpretation [...] S NOT APPLICABLE FOR DIALYSIS PATIEN TS. Dance Coach ID - ANTONIA FPROTHROMBIN TIME/[id number] 06:37:00 Test Item Value Reference Range Interpretation [...] for patients wiht mechanical heart valves.While on warfarin.[id number] 23:03:00 Test Item Value Reference Range Interpretation Comments PARTIAL THROMBOPLASTIN TIME 54.4 seconds 22.5-36.0 H (BEAKER) (test code = 760) POCT-GLUCOSE [id number] 22:30:00 Test Item Value Reference Range Interpretation Comments POC-GLUCOSE METER 96 mg/dL 70-110 : TESTED A T [facility] 6720 ([employer]) (test code = [facility] [employer] [facility], 1538) [address]: Dance Coach/Techni kush ID = [id number] for BENITA MASSEY POCT-GLUCOSE [id number] 15:59:00 Test Item Value Reference Range Interpretation Comments POC-GLUCOSE METER 133 mg/dL 70-110 H : TESTED A T [facility] 6720 (Mr [employer]) (test code = [facility] [employer] [facility], 1538) [address]: Dance Coach/Techni kush ID = [id number] for Raquel Raoa [id number] 15:38:00 Test Item Value Reference Range Interpretation Comments PARTIAL THROMBOPLASTIN TIME 88.8 seconds 22.5-36.0 H (BEAKER) (test code = 760) POCT-GLUCOSE [id number] 12:08:00 Test Item Value Reference Range Interpretation Comments POC-GLUCOSE METER 130 mg/dL 70-110 H : TESTED A T [facility] 6720 ([employer]) (test code = [facility] [employer] [facility], 1538) [address]: Dance Coach/Techni kush ID = [id number] for Margarita travis, Areiona PROTHROMBIN TIME/[id number] 11:48:00 Test Item Value Reference Range Interpretation [...] INR is2.5-3.5 for patients wiht mechanical heart valves.[id number] 09:34:00 Test Item Value Reference Range Interpretation Comments PARTIAL THROMBOPLASTIN TIME 74.6 seconds 22.5-36.0 H (BEAKER) (test code = 760) CBC W/PLT COUNT & AUTO [id number] 01:34:00 Test Item Value Reference Range Interpretation [...] (BEAKER) (test code = 2801) BASIC METABOLIC [id number] 01:29:00 Test Item Value Reference Range Interpretation [...] S NOT APPLICABLE FOR DIALYSIS PATIEN TS. Dance Coach ID - PIAYA [id number] 01:13:00 Test Item Value Reference Range Interpretation Comments PARTIAL THROMBOPLASTIN TIME 56.4 seconds 22.5-36.0 H (BEAKER) (test code = 760) POCT-GLUCOSE [id number] 23:59:00 Test Item Value Reference Range Interpretation Comments POC-GLUCOSE METER 134 mg/dL 70-110 H : TESTED A T [facility] 6720 (BEAKER) (test code = [facility], 1538) 17[address]: Dance Coach/Techni uksh ID = [id number] for SIMEON CORADOZISCOOTER Fontanez [id number] 18:52:00 Test Item Value Reference Range Interpretation Comments PARTIAL THROMBOPLASTIN TIME 47.3 seconds 22.5-36.0 H (BEAKER) (test code = 760) [id number] 18:18:00 Test Item Value Reference Range Interpretation Comments PARTIAL THROMBOPLASTIN TIME > seconds 22.5-36.0 HH (BEAKER) (test code = 760) POCT-GLUCOSE [id number] 18:15:00 Test Item Value Reference Range Interpretation Comments POC-GLUCOSE METER 143 mg/dL 70-110 H : TESTED A T [facility] 6720 (BEAKER) (test code = [facility], 1538) 27[address]: Dance Coach/Techni kush ID = [id number] for DO BBINS, RANDI POCT-GLUCOSE [id number] 12:15:00 Test Item Value Reference Range Interpretation Comments POC-GLUCOSE METER 123 mg/dL 70-110 H : TESTED A T [facility] 6720 (BEAKER) (test code = [facility], 1538) 27889: Dance Coach/Techni kush ID = [id number] for DO BBINS, RANDI [id number] 11:28:00 Test Item Value Reference Range Interpretation Comments PARTIAL THROMBOPLASTIN TIME 57.3 seconds 22.5-36.0 H (BEAKER) (test code = 760) POCT-GLUCOSE [id number] 06:49:00 Test Item Value Reference Range Interpretation Comments POC-GLUCOSE METER 86 mg/dL 70-110 : TESTED A T [facility] 6720 (BEAKER) (test code = [facility], 1538) [address]15[address]: Dance Coach/Techni kush ID = [id number] for BRITNEY BRISASCOOTER ALLEN BASIC METABOLIC [id number] 06:19:00 Test Item Value Reference Range Interpretation [...] S NOT APPLICABLE FOR DIALYSIS PATIEN TS. Dance Coach ID - PIAYA LCBC W/PLT COUNT & AUTO [id number] 04:57:00 Test Item Value Reference Range Interpretation [...] PERCENT (BEAKER) (test code = 2801) POCT-GLUCOSE [id number] 02:25:00 Test Item Value Reference Range Interpretation Comments POC-GLUCOSE METER 69 mg/dL 70-110 L : TESTED A T [facility] 6720 (BEAKER) (test code = [facility], 1538) 18730: Dance Coach/Techni kush ID = [id number] for RADHA PEREZ FL, FLUORO, NON-SPECIFIC, UP TO 1 [id number] 01:47:00Reason for exam:- >orif right femurFluoroscopic unit utilized for a procedure performed in the OR. No interpretation was requested. Refer to the operative report for findings. Refer to PACS for patient radiation dose information.FL fluoro non- specific up to 1 [id number] 01:47:00Interface, External Ris In - 02/28/2020 1:50 AM CDTFluoroscopic unit utilized for a procedure performed in the OR. No interpretation was requested. Refer to the operative report for findings. Referto PACS for patient radiation dose information.[facility] CenterAPTT2020-06-27 20:21:00 Test Item Value Reference Range Interpretation Comments PARTIAL THROMBOPLASTIN TIME 41.1 seconds 22.5-36.0 H (BEAKER) (test code = 760) 6 hours after starting heparin infusion and as indicated per sliding scale HEMODIALYSIS [id number] 18:35:06Alma Delia Rachel RN 02/27/2020 6:35 PMLab [...] Patient tolerated procedure well. Alma Delia Rachel RNWestern Medical CenterPOCT-GLUCOSE [id number] 17:57:00 Test Item Value Reference Range Interpretation Comments POC-GLUCOSE METER 82 mg/dL 70-110 : TESTED A T [facility] 6720 (BEAKER) (test code = [facility], 1538) 114[address]: Dance Coach/Techni kush ID = [id number] for ALMA DELIA PATHAK [id number] 17:14:00 Test Item Value Reference Range Interpretation Comments Ferritin (test code = 5182.19 ng/mL 5-275 H 2276-4) ALVIN (test code = ALVIN) Dance Coach ID - JOEL [place] Lab Interpretation (test Abnormal code = 99763-0) [facility] CenterFERRITIN2020-06-27 17:14:00 Test Item Value Reference Range Interpretation Comments FERRITIN (BEAKER) (test code = 5182.19 ng/mL 5.00-275.00 H 361) Dance Coach ID - JOEL BARBOURron, TIBC, % sat. (without ferritin)2020-02-27 16:01:00 Test Item Value Reference Range Interpretation Comments Iron (test code = 2498-4) 125.0 ug/dL 40-160 TIBC (test code = 2500-7) 219 ug/dL 250-450 L Iron % Saturation (test 57 % 20-55 H code = 2502-3) ALVIN (test code = ALVIN) Dance Coach ID - JOEL W Lab Interpretation (test Abnormal code = 65281-4) [facility] CenterIRON, TIBC, % SAT. (WITHOUT FERRITIN)2020-02-27 16:01:00 Test Item Value Reference Range Interpretation Comments IRON (BEAKER) (test code = 547) 125.0 ug/dL 40.0-160.0 TOTAL IRON BINDING CAPACITY 219 ug/dL 250-450 L (BEAKER) (test code = 769) IRON % SATURATION (2) (BEAKER) 57 % 20-55 H (test code = 2590) Dance Coach ID - JOEL [id number] 12:54:00 Test Item Value Reference Range Interpretation Comments PARTIAL THROMBOPLASTIN TIME 41.5 seconds 22.5-36.0 H (BEAKER) (test code = 760) Prior to initiating heparinPlatelet [id number] 12:51:00 Test Item Value Reference Range Interpretation Comments Platelets (test code 116 See_Comment L [Autom ated = 777-3) message] The system which generated this result transmit jayla reference range : 150 - 450 K/CU MM. The reference range was not u sed to interpret th is result as normal/abnormal . ALVIN (test code = ALVIN) Dance Coach ID - [id number] clot Lab Interpretation Abnormal (test code = 76381-1) [facility] CenterPLATELET [id number] 12:51:00 Test Item Value Reference Range Interpretation Comments PLATELET COUNT (BEAKER) (test 116 K/CU MM 150-450 L code = 756) Dance Coach ID - [id number] clotSARS-CoV2/RT-PCR (Asymptomatic ONLY)2020-02-27 12:46:00 Test Item Value Reference Range Interpretation Comments SARS-COV2/RT-PCR Negative Not Detected, (test code = Negative 58534-1) SARS-COV-2 [facility] PERFORMING LAB (test code = 21913-8) ALVIN (test code = Negative result for [...] of the Act. Fact Sheet for Healthcare Providers:https://www.Notis.tv/sites/default/f mio/product/documents/F act_Sheet_HC_Providers_L lue_PIWK-JqD-5.pdf Fact Sheet for Healthcare Patients:https://www.Orabrush.Oktagon Games/sites/default/fi les/product/documents/Fa ct_Sheet_Patients_Lyra_S ARS-CoV-2.pdf Performing Laboratory:[facility] [place] [address] [facility]ARS[facility] ([facility])2020-02-27 12:46:00 Test Item Value Reference Range Interpretation Comments SARS-COV2/RT-PCR (test code = Negative Not Detected, Negative 4869165) SARS-COV-2 PERFORMING LAB [facility] (test code = 7199914) Negative result for this test determines that [...] 564(g) of the Act.Fact Sheet for Healthcare Providers:https://www.Sensory [employer].com/sites/default/files/product/documents/Fact_Shee a_VS_Fpjbkmseh_Jsbe_GOFM-OlP-5.pdfFact Sheet for Healthcare Patients:https://www.[employer].com/sites/default/files/product/ documents/Jjat_Bvzxy_Kyjcmvjd_Oonw_WCGI-UjO-5.pdfPerforming Laboratory:[facility], [place] [address]MUWT-FGUTDIT METER 2020-02-27 12:12:00 Test Item Value Reference Range Interpretation Comments POC-GLUCOSE METER 90 mg/dL 70-110 : TESTED A T [facility] 6720 (JARROD) (test code = [place], 1538) [address]: Dance Coach/Techni kush ID = [id number] for ANTONIO ABENA YI Hepatitis B surface [id number] 11:32:00 Test Item Value Reference Range Interpretation Comments HBsAg Screen (test code Nonreactive Nonreactive = 5195-3) ALVIN (test code = ALVIN) Specimen is considered negative for HBsAg. Lab Interpretation (test Normal code = 40961-1) [facility] CenterHEPATITIS B SURFACE [id number] 11:32:00 Test Item Value Reference Range Interpretation Comments HEPATITIS B SURFACE ANTIGEN (2) Nonreactive Nonreactive (BEAKER) (test code = 2585) Specimen is considered negative for HBsAg.RAD, WRIST, 2 VIEWS, [id number] 09:19:00Reason for exam:->fall, immbolityFINAL REPORT TECHNIQUE: Frontal, oblique, and lateral views of the left wrist. INDICATION: Fall immobility. COMPARISON: None. FINDINGS:No acute fractures or dislocations.Joint spaces are within normal limits.There are atherosclerotic calcifications of the vessels. Surgical clipsproject over the distal radius.. IMPRESSION:No acute osseous abnormality. Signed: Bhavin Artis Verified Date/Time: 02/27/2020 09:19:08 Reading Location: [address] Body ReadingRoom XR wrist 2 views [id number] 09:19:00Interface, External Ris In - 02/27/2020 9:21 AM CDTFINAL REPORT TECHNIQUE: Frontal, oblique, and lateral views of the left wrist. INDICATION: Fall immobility. COMPARISON: None. FINDINGS:No acute fractures or dislocations.Joint spaces are within normal limits.There are atherosclerotic calcifications of the vessels. Surgical clips project over the distal radius.. IMPRESSION:No acute osseous abnormality. Signed: Bhavin Artis Verified Date/Time: 02/27/2020 09:19:08 Reading Location: [facility] C0[facility] CT Body Reading Room [facility]apiAntibody [id number] 08:56:00 Test Item Value Reference Range Interpretation Comments ANTIBODY ID (BEAKER) UNID IgG (test code = 2253) Antibody Consult SIGNED OUT An IgG anti body of (test code = 2479) undetermi christian specificity is detected, trans fuse crossmatch comp atible RBCs.Electronic Signature: Rosendo Shirley M.D. [facility] CenterPotassium2020-06-27 08:30:00 Test Item Value Reference Range Interpretation Comments Potassium (test code = 5.0 meq/L 3.5-5.1 2823-3) ALVIN (test code = ALVIN) Dance Coach ID - AKSHAT L Lab Interpretation (test Normal code = 17166-2) [facility] CenterPOTASSIUM2020-06-27 08:30:00 Test Item Value Reference Range Interpretation Comments POTASSIUM (BEAKER) (test code = 5.0 meq/L 3.5-5.1 379) Dance Coach ID - AKSHAT LType and screen, [id number] 08:01:00 Test Item Value Reference Range Interpretation Comments ABO/RH AUTOMATED (BEAKER) (test AB POSITIVE code = 2260) Ab Scrn (test code = 890-4) POSITIVE ECHO 2 [facility] CenterRAD, PELVIS, 1 OR 2 [id number] 07:23:00Reason for exam:->femoral neck fxFINAL REPORT RAD, [...] ileoileal lines are intact. Signed: Radha Lisa MDReport Verified Date/Time: 02/27/2020 07:23:52 Reading Location: [facility] C013 Neuro Reading Room RAD, HIP, 2 VIEWS, [id number] 07:23:00Reason for exam:- >femoral neck fractureFINAL REPORT [...] Lisa Verified Date/Time: 02/27/2020 07:23:52 Reading Location: [address] Neuro Reading Room XR hip 2 views [id number] 07:23:00Interface, External Ris In - 02/27/2020 7:26 [...] Radha Lisa VerifiedDate/Time: 02/27/2020 07:23:52 Reading Location: [address] Neuro Reading Room [facility]achapiXR pelvis 1 or 2 [id number] 07:23:00Interface, External Ris In - 02/27/2020 7:26 [...] ilioischial and ileoileal lines are intact. Signed: Sloan, Radha MDReport VerifiedDate/Time: 02/27/2020 07:23:52 Reading Location: [facility] C013V Neuro Reading Room [facility] POCT-GLUCOSE [id number] 06:26:00 Test Item Value Reference Range Interpretation Comments POC-GLUCOSE METER 72 mg/dL 70-110 : TESTED A T [facility] 6720 (BEAKER) (test code = [facility] [place] [place], 1538) [address]: Dance Coach/Techni kush ID = [id number] for SCOOTER MAYA Comprehensive metabolic [id number] 02:44:00 Test Item Value Reference Range Interpretation Comments Protein, Total (test 9.6 See_Comment H [Autom ated code = 2885-2) message] The system which generated this result transmit jayla reference range : 6.0 - 8.3 gm/dL . The reference range was not u sed to interpret th is result as normal/abnormal . Albumin (test code = 4.3 g/dL 3.5-5 63097-2) Alkaline Phosphatase 85 U/L 40-150 (test code [...] Calcium (test code = 9.2 mg/dL 8.4-10.2 26658-0) AST (test code = 44 U/L 5-34 H 1920-8) ALT (test code = 36 U/L 6-55 1742-6) EGFR (test code = 7 mL/min/1.73 [place] [address]-1) NOT ACCURATE CREATININE CLEARANCE IN PREDICTING GLOMERULAR FILTRATION RATE . ESTIMATED GFR I S NOT APPLICABLE FOR DIALYSIS PATIEN TS. ALVIN (test code = ALVIN) Dance Coach ID - AKSHAT L Lab Interpretation Abnormal (test code = 70728-2) [facility] CenterCOMPREHENSIVE METABOLIC [id number] 02:44:00 Test Item Value Reference Range Interpretation [...] S NOT APPLICABLE FOR DIALYSIS PATIEN TS. Dance Coach ID - PIAYA LPROTHROMBIN TIME/[id number] 02:03:00 Test Item Value Reference Range Interpretation [...] INR is2.5-3.5 for patients wiht mechanical heart valves.[id number] 01:56:00 Test Item Value Reference Range Interpretation Comments Magnesium (test code = 1.9 mg/dL 1.6-2.6 65145-4) ALVIN (test code = ALVIN) Dance Coach ID - JIMYJESSE L Lab Interpretation (test Normal code = 54274-6) [facility] CenterPhosphorus2020-06-27 01:56:00 Test Item Value Reference Range Interpretation Comments Phosphorus (test code = 7.3 mg/dL 2.3-4.7 H 2777-1) ALVIN (test code = ALVIN) Dance Coach ID - AKSHAT L Lab Interpretation (test Abnormal code = 41067-4) [facility] CenterPHOSPHORUS2020-06-27 01:56:00 Test Item Value Reference Range Interpretation Comments PHOSPHORUS (BEAKER) (test code = 7.3 mg/dL 2.3-4.7 H 604) Dance Coach ID - AKSHAT [id number] 01:56:00 Test Item Value Reference Range Interpretation Comments MAGNESIUM (BEAKER) (test code = 1.9 mg/dL 1.6-2.6 627) Dance Coach ID - AKSHAT LCBC W/PLT COUNT & AUTO [id number] 01:33:00 Test Item Value Reference Range Interpretation [...] (test code = 2801) AFB CULTURE + [id number] 07:33:00 Test Item Value Reference Range Interpretation Comments CULTURE (BEAKER) (test No acid-fast bacilli code = 1095) isolated in 42 days AFB SMEAR (BEAKER) No acid fast bacilli (test code = 994) seen FUNGUS CULTURE + [id number] 17:26:00 Test Item Value Reference Range Interpretation Comments CULTURE (BEAKER) (test No fungus isolated in code = 1095) 28 days FUNGUS SMEAR ([facility]) No fungi seen (test code = 1406) POCT-GLUCOSE [id number] 13:35:00 Test Item Value Reference Range Interpretation Comments POC-GLUCOSE METER 116 mg/dL 70-110 H TESTED AT [facility] 6720 ([facility]) (test code = [facility] 1538) [address] POCT-GLUCOSE [id number] 08:54:00 Test Item Value Reference Range Interpretation Comments POC-GLUCOSE METER 99 mg/dL 70-110 TESTED AT [facility] 6720 ([facility]) ([facility] = [facility] [address] 1538) [id number] 06:34:00 Test Item Value Reference Range Interpretation Comments PARTIAL THROMBOPLASTIN TIME 46.7 seconds 22.5-36.0 H (BEAKER) (test code = 760) While on warfarin.PROTHROMBIN TIME/[id number] 06:33:00 Test Item Value Reference Range Interpretation [...] H (BEAKER) (test code = 413) POCT-GLUCOSE [id number] 21:38:00 Test Item Value Reference Range Interpretation Comments POC-GLUCOSE METER 192 mg/dL 70-110 H TESTED AT [facility] 6720 [facility] (test code = [place] 1538) [address] POCT-GLUCOSE [id number] 13:01:00 Test Item Value Reference Range Interpretation Comments POC-GLUCOSE METER 200 mg/dL 70-110 H TESTED AT [facility] 6720 [facility] (test code = [place] 1538) [address] POCT-GLUCOSE [id number] 08:00:00 Test Item Value Reference Range Interpretation Comments POC-GLUCOSE METER 123 mg/dL 70-110 H TESTED AT [facility] 6720 ([facility]) (test code = [facility] Paul [facility] 1538) [address] [id number] 06:40:00 Test Item Value Reference Range Interpretation Comments PARTIAL THROMBOPLASTIN TIME 83.1 seconds 22.5-36.0 H (AKER) (test code = 760) [id number] 05:54:00 Test Item Value Reference Range Interpretation Comments PARTIAL THROMBOPLASTIN TIME > seconds 22.5-36.0 HH (AKER) (test code = 760) PROTHROMBIN TIME/[id number] 05:30:00 Test Item Value Reference Range Interpretation Comments PROTIME ([facility]) (test code = 24.1 seconds 11.7-14.7 H 759) INR ([facility]) (test code = 370) 2.3 <=5.9 RECOMMENDED [...] (BEAKER) (test code = 413) BASIC METABOLIC [id number] 05:10:00 Test Item Value Reference Range Interpretation [...] APPLICABLE FOR DIALYSIS PATIEN TS. OCCULT BLOOD, [id number] 23:46:00 Test Item Value Reference Range Interpretation Comments FECAL OCCULT BLOOD (BEAKER) (test Negative Negative code = 618) POCT-GLUCOSE [id number] 22:52:00 Test Item Value Reference Range Interpretation Comments POC-GLUCOSE METER 192 mg/dL 70-110 H TESTED AT [facility] 6720 [facility] (test code = [facility] [place] 1538) [address] POCT-GLUCOSE [id number] 17:11:00 Test Item Value Reference Range Interpretation Comments POC-GLUCOSE METER 149 mg/dL 70-110 H TESTED AT [facility] 6720 [facility] (test code = [place] [place] 1538) [address] PROTHROMBIN TIME/[id number] 13:00:00 Test Item Value Reference Range Interpretation Comments PROTIME (JARROD) (test code = 19.9 seconds 11.7-14.7 H 759) [facility] (test code = 370) 1.8 <=5.9 RECOMMENDED COUMADIN/WARFARIN INR THERAPY RANGESSTANDARD DOSE: 2.0 - 3.0 Includes: PROPHYLAXIS forvenous thrombosis, systemic embolization; TREATMENT for venous thrombosis and/or pulmonary embolus.HIGH RISK: Target INR is 2.5-3.5 for patients with mechanical heart valves.While on warfarin.POCT-GLUCOSE METER 2019-01-04 12:14:00 Test Item Value Reference Range Interpretation Comments POC-GLUCOSE METER 134 mg/dL 70-110 H TESTED AT [place] [address] ([facility]) (test code = [facility]ER Paul [facility] 1538) [address] RAD, CHEST, 1 VIEW, NON [id number] 08:02:00Reason for exam:->Post opShould this be performed [...] MDReport Verified Date/Time: 01/04/2019 08:02:18 Reading Location: [facility] B1 C013W Consult Reading Room Electronicallysigned by: EDENILSON BLOOM M.D. on 01/04/2019 08:02 AMPOCT-GLUCOSE [id number] 07:42:00 Test Item Value Reference Range Interpretation Comments POC-GLUCOSE METER 98 mg/dL 70-110 TESTED AT [facility] 67 ([facility]) (test code = [place] [place] [facility] [address] 1538) BASIC METABOLIC [id number] 07:28:00 Test Item Value Reference Range Interpretation Comments SODIUM (JARROD) 136 meq/L 136-145 (test code = 381) [...] BLOOD CELLS 1 /100 WBC 0-0 H ([facility]) (test code = 413) [id number] 06:08:00 Test Item Value Reference Range Interpretation Comments PARTIAL THROMBOPLASTIN TIME 70.6 seconds 22.5-36.0 H (AKER) (test code = 760) [id number] 23:32:00 Test Item Value Reference Range Interpretation Comments PARTIAL THROMBOPLASTIN TIME 77.2 seconds 22.5-36.0 H (ZOILA) (test code = 760) POCT-GLUCOSE [id number] 21:55:00 Test Item Value Reference Range Interpretation Comments POC-GLUCOSE METER 150 mg/dL 70-110 H TESTED AT [facility] 6720 ([facility]) (test code = [facility] Paul [facility] 1538) [address] [id number] 18:25:00 Test Item Value Reference Range Interpretation Comments PARTIAL THROMBOPLASTIN TIME 71.2 seconds 22.5-36.0 H ([facility]) (test code = 760) POCT-GLUCOSE [id number] 13:45:00 Test Item Value Reference Range Interpretation Comments POC-GLUCOSE METER 375 mg/dL 70-110 H Notified R Toy PÉREZ/TESTED ([facility]) (test code = AT [facility] 6720 [facility] 1538) [facility] [address] 0 [id number] 10:26:00 Test Item Value Reference Range Interpretation Comments PARTIAL THROMBOPLASTIN TIME 94.0 seconds 22.5-36.0 H ([facility]) (test code = 760) While on warfarin.PROTHROMBIN TIME/[id number] 10:24:00 Test Item Value Reference Range Interpretation Comments PROTIME ([facility]) (test code = 19.3 seconds 11.7-14.7 H 759) INR ([facility]) (test code = 370) 1.7 <=5.9 RECOMMENDED COUMADIN/WARFARIN INR THERAPY RANGESSTANDARD DOSE: 2.0 - 3.0 Includes: PROPHYLAXIS forvenous thrombosis, systemic embolization; TREATMENT for venous thrombosis and/or pulmonary embolus.HIGH RISK: Target INR is 2.5-3.5 for patients with mechanical heart valves.While on warfarin.POCT-GLUCOSE METER 2019-01-03 08:36:00 Test Item Value Reference Range Interpretation Comments POC-GLUCOSE METER 124 mg/dL 70-110 H TESTED AT [facility] 6720 (BEAKER) (test code = [place] 1538) [address] RAD, CHEST, 1 VIEW, NON [id number] 08:19:00Reason for exam:->Post opShould this be performed [...] Lisa Verified Date/Time: 01/03/2019 08:19:51 Reading Location: [address] Neuro Reading Room [id number] 03:31:00 Test Item Value Reference Range Interpretation Comments PARTIAL THROMBOPLASTIN TIME 64.2 seconds 22.5-36.0 H (BEAKER) (test code = 760) BASIC METABOLIC [id number] 03:21:00 Test Item Value Reference Range Interpretation [...] H (BEAKER) (test code = 413) POCT-GLUCOSE [id number] 22:54:00 Test Item Value Reference Range Interpretation Comments POC-GLUCOSE METER 206 mg/dL 70-110 H TESTED AT [place] [address] ([facility]) (test code = [facility] [place] 1538) [address] [id number] 19:36:00 Test Item Value Reference Range Interpretation Comments PARTIAL THROMBOPLASTIN TIME 79.3 seconds 22.5-36.0 H ([facility]) (test code = 760) POCT-GLUCOSE [id number] 17:59:00 Test Item Value Reference Range Interpretation Comments POC-GLUCOSE METER 186 mg/dL 70-110 H TESTED AT [facility] 6720 ([facility]) (test code = [place] 1538) [address] POCT-GLUCOSE [id number] 13:54:00 Test Item Value Reference Range Interpretation Comments POC-GLUCOSE METER 139 mg/dL 70-110 H TESTED AT [facility] 67 ([facility]) (test code = [facility] 1538) [address] POCT-GLUCOSE [id number] 13:05:00 Test Item Value Reference Range Interpretation Comments POC-GLUCOSE METER 163 mg/dL 70-110 H TESTED AT [place] [address] ([facility]) (test code = [facility] 1538) [address] [id number] 12:49:00 Test Item Value Reference Range Interpretation Comments PARTIAL THROMBOPLASTIN TIME 64.9 seconds 22.5-36.0 H ([facility]) (test code = 760) OCCULT BLOOD, [id number] 12:31:00 Test Item Value Reference Range Interpretation Comments FECAL OCCULT BLOOD ([facility]) (test Negative Negative code = 618) RAD, CHEST, 1 VIEW, NON [id number] 10:37:00Reason for exam:->Post opShould this be performed [...] Date/Time: 01/02/2019 10:37:35 Reading Loc ation: [facility] Radiology Reading Room POCT-GLUCOSE [id number] 08:07:00 Test Item Value Reference Range Interpretation Comments POC-GLUCOSE METER 107 mg/dL 70-110 TESTED AT [place] [address] ([facility]) (test code = FOSTER Paul [facility] 8170) [address] [id number] 04:48:00 Test Item Value Reference Range Interpretation Comments PARTIAL THROMBOPLASTIN TIME 106.0 seconds 22.5-36.0 H (BEAKER) (test code = 760) While on warfarin.BASIC METABOLIC [id number] 04:48:00 Test Item Value Reference Range Interpretation [...] NOT APPLICABLE FOR DIALYSIS PATIEN TS. PROTHROMBIN TIME/[id number] 04:39:00 Test Item Value Reference Range Interpretation [...] 0-0 (BEAKER) (test code = 413) POCT-GLUCOSE [id number] 22:17:00 Test Item Value Reference Range Interpretation Comments POC-GLUCOSE METER 117 mg/dL 70-110 H TESTED AT [facility] 6720 (AKER) (test code = [place] 1538) [address] RAD, CHEST, 1 VIEW, NON [id number] 19:40:00Reason for exam:->Post opShould this be performed [...] clear. IMPRESSION: No interval change. Signed: Edenilson Blo[place] Verified Date/Time: 01/01/2019 19:40:01 Reading Location: [facility] B1 C013W Consult Reading Room POCT-GLUCOSE [id number] 18:22:00 Test Item Value Reference Range Interpretation Comments POC-GLUCOSE METER 159 mg/dL 70-110 H TESTED AT [facility] 6720 ([facility]) (test code = [facility] 1538) [address] POCT-GLUCOSE [id number] 14:12:00 Test Item Value Reference Range Interpretation Comments POC-GLUCOSE METER 135 mg/dL 70-110 H TESTED AT [place] [address] ([facility]) (test code = [facility] 1538) [address] HEPATITIS B SURFACE [id number] 11:52:00 Test Item Value Reference Range Interpretation Comments HEPATITIS B SURFACE ANTIGEN (2) Nonreactive Nonreactive ([facility]) (test code = 2585) POCT-GLUCOSE [id number] 08:40:00 Test Item Value Reference Range Interpretation Comments POC-GLUCOSE METER 85 mg/dL 70-110 TESTED AT [place] [address] ([facility]) (test code = [facility] [address] 1538) BASIC METABOLIC [id number] 04:17:00 Test Item Value Reference Range Interpretation [...] S NOT APPLICABLE FOR DIALYSIS PATIEN TS. [id number] 03:40:00 Test Item Value Reference Range Interpretation Comments PARTIAL THROMBOPLASTIN TIME 84.1 seconds 22.5-36.0 H (BEAKER) (test code = 760) While on warfarin.PROTHROMBIN TIME/[id number] 03:39:00 Test Item Value Reference Range Interpretation [...] 0-0 (BEAKER) (test code = 413) POCT-GLUCOSE [id number] 22:08:00 Test Item Value Reference Range Interpretation Comments POC-GLUCOSE METER 194 mg/dL 70-110 H TESTED AT [place] [address] ([facility]) (test code = FOTSER Paul [facility] 1538) [address] POCT-GLUCOSE [id number] 22:03:00 Test Item Value Reference Range Interpretation Comments POC-GLUCOSE METER 203 mg/dL 70-110 H TESTED AT [place] [address] ([facility]) (test code = FOSTER Paul [facility] 1538) [address] POCT-GLUCOSE [id number] 21:42:00 Test Item Value Reference Range Interpretation Comments POC-GLUCOSE METER 42 mg/dL 70-110 L TESTED AT [place] [address] ([facility]) (test code = FOSTER Paul [facility] [address] 1538) [id number] 21:35:00 Test Item Value Reference Range Interpretation Comments PARTIAL THROMBOPLASTIN TIME 80.4 seconds 22.5-36.0 H ([facility]) (test code = 760) POCT-GLUCOSE [id number] 18:03:00 Test Item Value Reference Range Interpretation Comments POC-GLUCOSE METER 144 mg/dL 70-110 H TESTED AT [place] [address] ([facility]) (test code = FOSTER Paul [facility] 1538) [address] TISSUE [id number] 16:33:00Surgical Pathology Report Case: [id number] Authorizing Provider: Enmanuel Sharma Collected: 12/26/2018 1537 MD Liban OrderingLocation: [address] Received: 12/29/2018 0814 Service Pathologist: Brigida [...] stains. GMSImmunohistochemistry technical testing was performed at [facility], Pathology Laboratory where it [...] toperform high complexity clinical laboratory testing.CPT CODE: [id number] electronically signed byBrigida Parks MD on 12/31/2018 [...] ARE NEGATIVE Signing Pathologist Direct Phone Line: [phone] signed by Brigida Parks MD on 12/30/2018 at 6:43 PMPreliminary result electronically signed by Brigida Parks MD on 12/29/2018 at 4:54 [id number] X 2; 73006; 33142; 05306 X 2Upper endoscopy, biopsyPreoperative and postoperative diagnosis: [...] AND CMVImmunohistochemistry technical testing was performed at [facility], Pathology Laboratory where it [...] qualified toperform high complexity clinical laboratory testing.POCT-GLUCOSE [id number] 13:57:00 Test Item Value Reference Range Interpretation Comments POC-GLUCOSE METER 178 mg/dL 70-110 H TESTED AT [facility] 67 ([facility]) (test code = FOSTER [place] 1538) [address] [id number] 12:54:00 Test Item Value Reference Range Interpretation Comments PARTIAL THROMBOPLASTIN TIME 69.4 seconds 22.5-36.0 H ([facility]) (test code = 760) RAD, CHEST, 1 VIEW, NON [id number] 09:26:00Reason for exam:->Post opShould this be performed [...] MDReport Verified Date/Time: 12/31/2018 09:26:31 Reading Location: [facility] Radiology Reading Room POCT-GLUCOSE [id number] 09:01:00 Test Item Value Reference Range Interpretation Comments POC-GLUCOSE METER 162 mg/dL 70-110 H TESTED AT [facility] 6720 ([facility]) (test code = FOSTER Paul [facility] 1538) [address] BASIC METABOLIC [id number] 06:50:00 Test Item Value Reference Range Interpretation [...] NOT APPLICABLE FOR DIALYSIS PATIEN TS. PROTHROMBIN [id number] 06:38:00 Test Item Value Reference Range Interpretation Comments PROTIME (BEAKER) (test code = 19.1 seconds 11.7-14.7 H 759) INR (BEAKER) (test code = 370) 1.7 <=5.9 RECOMMENDED COUMADIN/WARFARIN INR THERAPY RANGESSTANDARD DOSE: 2.0 - 3.0 Includes: PROPHYLAXIS forvenous thrombosis, systemic embolization; TREATMENT for venous thrombosis and/or pulmonary embolus.HIGH RISK: Target INR is 2.5-3.5 for patients with mechanical heart valves.While on warfarin.[id number] 06:37:00 Test Item Value Reference Range Interpretation [...] (BEAKER) (test code = 412) PLATELET COUNT ([facility]) (test 156 K/CU MM 150-450 code = 756) MEAN PLATELET VOLUME (BEAKER) 8.7 fL 9.4-12.4 L (test code = 754) NUCLEATED RED BLOOD CELLS 0 /100 WBC 0-0 ([facility]) (test code = 413) POCT-GLUCOSE [id number] 00:45:00 Test Item Value Reference Range Interpretation Comments POC-GLUCOSE METER 124 mg/dL 70-110 H TESTED AT [place] [address] ([facility]) (test code = MARIA GOSMAN Paul [facility] 1538) [address] [id number] 19:14:00 Test Item Value Reference Range Interpretation Comments PARTIAL THROMBOPLASTIN TIME 57.8 seconds 22.5-36.0 H ([facility]) (test code = 760) POCT-GLUCOSE [id number] 17:53:00 Test Item Value Reference Range Interpretation Comments POC-GLUCOSE METER 133 mg/dL 70-110 H TESTED AT [place] [address] ([facility]) (test code = FOSTER Paul [facility] 1538) [address] POCT-GLUCOSE [id number] 13:19:00 Test Item Value Reference Range Interpretation Comments POC-GLUCOSE METER 147 mg/dL 70-110 H TESTED AT [place] [address] ([facility]) (test code = FOSTER Paul [facility] 1538) [address] [id number] 12:43:00 Test Item Value Reference Range Interpretation Comments PARTIAL THROMBOPLASTIN TIME 57.0 seconds 22.5-36.0 H ([facility]) (test code = 760) [id number] 10:17:00 Test Item Value Reference Range Interpretation Comments PARTIAL THROMBOPLASTIN TIME 134.5 seconds 22.5-36.0 H (BEAKER) (test code = 760) POCT-GLUCOSE [id number] 07:43:00 Test Item Value Reference Range Interpretation Comments POC-GLUCOSE METER 107 mg/dL 70-110 TESTED AT [facility] 6720 (BEAKER) (test code = [place] 1538) [address] BASIC METABOLIC [id number] 06:46:00 Test Item Value Reference Range Interpretation [...] PATIEN TS. RAD, CHEST, 1 VIEW, NON [id number] 06:25:00Reason for exam:->Post opShould this be performed [...] Lisaeport Verified Date/Time: 12/30/2018 06:25:51 Reading Location: [facility] C013V Neuro Reading Room PROTHROMBIN TIME/[id number] 06:06:00 Test Item Value Reference Range Interpretation [...] 0-0 (BEAKER) (test code = 413) POCT-GLUCOSE [id number] 22:19:00 Test Item Value Reference Range Interpretation Comments POC-GLUCOSE METER 179 mg/dL 70-110 H TESTED AT [facility] 6720 ([facility]) (test code = [place] 1538) [address] POCT-GLUCOSE [id number] 17:39:00 Test Item Value Reference Range Interpretation Comments POC-GLUCOSE METER 181 mg/dL 70-110 H TESTED AT [facility] 6720 ([facility]) (test code = FOSTER Paul [place] 1538) [address] POCT-GLUCOSE [id number] 13:14:00 Test Item Value Reference Range Interpretation Comments POC-GLUCOSE METER 102 mg/dL 70-110 TESTED AT [facility] 6720 ([facility]) (test code = FOSTER Paul [facility] 1538) [address] RAD, CHEST, 1 VIEW, NON [id number] 08:56:00Reason for exam:->Post opShould this be performed [...] Bloom Verified Date/Time: 12/29/2018 08:56:32 Reading Location: [facility] Radiology Reading Room Electronically signed by: EDENILSON BLOOM M.D.on 12/29/2018 08:56 AMPOCT-GLUCOSE [id number] 07:53:00 Test Item Value Reference Range Interpretation Comments POC-GLUCOSE METER 135 mg/dL 70-110 H TESTED AT [facility] 6720 ([facility]) (test code = FOSTER Paul [facility] 1538) [address] [id number] 06:45:00 Test Item Value Reference Range Interpretation Comments PARTIAL THROMBOPLASTIN TIME 83.5 seconds 22.5-36.0 H ([facility]) (test code = 760) While on warfarin.PROTHROMBIN TIME/[id number] 06:44:00 Test Item Value Reference Range Interpretation [...] MEAN CORPUSCULAR HEMOGLOBIN 32.7 pg 25.7-32.2 H ([facility]) (test code = 751) MEAN CORPUSCULAR HEMOGLOBIN CONC 32.7 GM/DL 32.3-36.5 ([facility]) (test code = 752) RED CELL DISTRIBUTION WIDTH 15.6 % 11.6-14.4 H ([facility]) (test code = 412) PLATELET COUNT ([facility]) (test 131 K/CU MM 150-450 L code = 756) MEAN PLATELET VOLUME ([facility]) 9.1 fL 9.4-12.4 L (test code = 754) NUCLEATED RED BLOOD CELLS 0 /100 WBC 0-0 ([facility]) (test code = 413) [id number] 00:01:00 Test Item Value Reference Range Interpretation Comments PARTIAL THROMBOPLASTIN TIME 78.5 seconds 22.5-36.0 H ([facility]) (test code = 760) POCT-GLUCOSE [id number] 21:26:00 Test Item Value Reference Range Interpretation Comments POC-GLUCOSE METER 139 mg/dL 70-110 H TESTED AT [place] [address] ([facility]) (test code = FOSTER Paul [facility] 1538) [address] POCT-GLUCOSE [id number] 17:58:00 Test Item Value Reference Range Interpretation Comments POC-GLUCOSE METER 146 mg/dL 70-110 H TESTED AT [place] [address] ([facility]) (test code = FOSTER Paul [facility] 1538) [address] [id number] 17:16:00 Test Item Value Reference Range Interpretation Comments PARTIAL THROMBOPLASTIN TIME 34.5 seconds 22.5-36.0 ([facility]) (test code = 760) Prior to initiating heparinPOCT-GLUCOSE [id number] 12:54:00 Test Item Value Reference Range Interpretation Comments POC-GLUCOSE METER 133 mg/dL 70-110 H TESTED AT [place] [address] ([facility]) (test code = FOSTER Paul [facility] 1538) [address] RAD, CHEST, 1 VIEW, NON [id number] 08:06:00Reason for exam:->Post opShould this be performed at the bedside?->YesFINAL REPORT Chest one view. Clinical history: Post op Comparison: 12/27/2018 Discussion: A frontal chest is provided. Cardiomediastinal contours are unchanged. Lines and tubesare in stable position. Unchanged right-sided pleural-parenchymal opacities. Left lung is grossly clear. Vessels do not appear engorged. No pneumothorax. Signed: Dionicio Cheryort Verified Date/Time: 12/28/2018 08:06:07 Reading Location: [address] Neuro Reading Room BASIC METABOLIC [id number] 06:52:00 Test Item Value Reference Range Interpretation [...] NOT APPLICABLE FOR DIALYSIS PATIEN TS. PROTHROMBIN TIME/[id number] 06:31:00 Test Item Value Reference Range Interpretation [...] 0-0 (BEAKER) (test code = 413) POCT-GLUCOSE [id number] 21:41:00 Test Item Value Reference Range Interpretation Comments POC-GLUCOSE METER 163 mg/dL 70-110 H TESTED AT [facility] 6720 ([facility]) (test code = [place] 1538) [address] POCT-GLUCOSE [id number] 17:23:00 Test Item Value Reference Range Interpretation Comments POC-GLUCOSE METER 119 mg/dL 70-110 H TESTED AT [facility] 6720 ([facility]) (test code = [place] 1538) [address] RAD, CHEST, 1 VIEW, NON [id number] 14:49:00Reason for exam:->Post opShould this be performed [...] Romeort Verified Date/Time: 12/27/2018 14:49:48 Reading Location: [facility] C013X Ortho Consult Reading Room ANG, NON-TUNNELED CATH >5 Y.O. [id number] 14:17:00Reason for exam:->Central line placement, poor access, [...] guide wire was advanced centrally. A 7 Georgian 20 cm triple lumen catheter was advanced [...] Verified Date/Time: 12/27/2018 14:17:02 Reading Location: [facility] P048 Angio Body Reading [id number] 13:44:00 Test Item Value Reference Range Interpretation Comments PARTIAL THROMBOPLASTIN TIME 44.3 seconds 22.5-36.0 H (BEAKER) (test code = 760) Prior to initiating heparinPOCT-GLUCOSE [id number] 13:27:00 Test Item Value Reference Range Interpretation Comments POC-GLUCOSE METER 127 mg/dL 70-110 H TESTED AT [facility] 6720 [facility] (test code = [facility] 1538) [address] POCT-GLUCOSE [id number] 08:58:00 Test Item Value Reference Range Interpretation Comments POC-GLUCOSE METER 79 mg/dL 70-110 TESTED AT [facility] 6720 ([facility]) (test code = [facility] [address] 1538) BASIC METABOLIC [id number] 07:09:00 Test Item Value Reference Range Interpretation [...] NOT APPLICABLE FOR DIALYSIS PATIEN TS. PROTHROMBIN [id number] 06:52:00 Test Item Value Reference Range Interpretation [...] WBC 0-0 (test code = 413) POCT-GLUCOSE [id number] 23:54:00 Test Item Value Reference Range Interpretation Comments POC-GLUCOSE METER 73 mg/dL 70-110 TESTED AT [place] [address] ([facility]) (test code = FOSTER [place] [address] 1538) POCT-GLUCOSE [id number] 16:02:00 Test Item Value Reference Range Interpretation Comments POC-GLUCOSE METER 108 mg/dL 70-110 TESTED AT [facility] 6720 (BEAKER) (test code = FOSTER Paul [facility] 1538) [address] POCT-GLUCOSE [id number] 15:24:00 Test Item Value Reference Range Interpretation Comments POC-GLUCOSE METER 74 mg/dL 70-110 TESTED AT [facility] 6720 (JARROD) (test code = FOSTER Paul [facility] [address] 1538) POCT-GLUCOSE [id number] 10:29:00 Test Item Value Reference Range Interpretation Comments POC-GLUCOSE METER 88 mg/dL 70-110 TESTED AT [facility] 6720 ([facility]) (test code = FOSTER Paul [facility] [address] 1538) RAD, CHEST, 1 VIEW, NON [id number] 07:33:00Reason for exam:->Post opShould this be performed [...] No significant change. Signed: Sarah Beth Mejia Verified Date/Time: 12/26/2018 07:33:38 Reading Location: [facility] Radiology Reading Room BASIC METABOLIC [id number] 06:42:00 Test Item Value Reference Range Interpretation [...] 0-0 H (test code = 413) PROTHROMBIN TIME/[id number] 05:44:00 Test Item Value Reference Range Interpretation Comments PROTIME (BEAKER) (test code = 24.4 seconds 11.7-14.7 H 759) INR (BEAKER) (test code = 370) 2.2 <=5.9 RECOMMENDED COUMADIN/WARFARIN INR THERAPY RANGESSTANDARD DOSE: 2.0 - 3.0 Includes: PROPHYLAXIS forvenous thrombosis, systemic embolization; TREATMENT for venous thrombosis and/or pulmonary embolus.HIGH RISK: Target INR is 2.5-3.5 for patients with mechanical heart valves.POCT-GLUCOSE [id number] 00:06:00 Test Item Value Reference Range Interpretation Comments POC-GLUCOSE METER 88 mg/dL 70-110 TESTED AT [facility] 6720 ([facility]) (test code = [place] [address] 1538) POCT-GLUCOSE [id number] 19:06:00 Test Item Value Reference Range Interpretation Comments POC-GLUCOSE METER 121 mg/dL 70-110 H TESTED AT [facility] 6720 ([facility]) (test code = FOSTER Paul [place] 1538) [address] PROTHROMBIN [id number] 16:10:00 Test Item Value Reference Range Interpretation Comments PROTIME (BEAKER) (test code = 30.1 seconds 11.7-14.7 H 759) INR (BEAKER) (test code = 370) 2.9 <=5.9 RECOMMENDED COUMADIN/WARFARIN INR THERAPY RANGESSTANDARD DOSE: 2.0 - 3.0 Includes: PROPHYLAXIS forvenous thrombosis, systemic embolization; TREATMENT for venous thrombosis and/or pulmonary embolus.HIGH RISK: Target INR is 2.5-3.5 for patients with mechanical heart valves.BASIC METABOLIC [id number] 16:10:00 Test Item Value Reference Range Interpretation [...] S NOT APPLICABLE FOR DIALYSIS PATIEN TS. [id number] 16:09:00 Test Item Value Reference Range Interpretation [...] 0-0 H (test code = 413) POCT-GLUCOSE [id number] 08:03:00 Test Item Value Reference Range Interpretation Comments POC-GLUCOSE METER 89 mg/dL 70-110 TESTED AT [facility] 6720 (BEAKER) ([place] = [place] [address] 1538) RAD, CHEST, 1 VIEW, NON [id number] 07:46:00Reason for exam:->Post opShould this be performed at the bedside?->YesFINAL REPORT Chest one view. Clinical history: Post op Comparison: 12/24/2018 Discussion: A frontal chest is provided. Cardiomediastinal contours are unchanged. Stable appearance of pleural-parenchymal opacity at the right mid to lower lung. There is a tiny right apical pneumothorax, unchanged. Probable trace left effusion. Signed: Dionicio Chery Verified Date/Time: 07:46:01 Reading Location: [facility] Radiology Reading Room RAD, ABDOMEN/KUB, 1 VIEW [id number] 07:25:00Reason for exam:->abdominal distentionShould this be performed [...] Chery Verified Date/Time: 12/25/2018 07:25:40 Reading Location: [facility] Radiology Reading Room POCT-GLUCOSE [id number] 22:06:00 Test Item Value Reference Range Interpretation Comments POC-GLUCOSE METER 102 mg/dL 70-110 TESTED AT [place] [address] ([facility]) (test code = FOSTER Paul [facility] 1538) [address] POCT-GLUCOSE [id number] 18:44:00 Test Item Value Reference Range Interpretation Comments POC-GLUCOSE METER 100 mg/dL 70-110 TESTED AT [facility] 67 ([facility]) (test code = FOSTER Paul [facility] 1538) [address] POCT-GLUCOSE [id number] 14:54:00 Test Item Value Reference Range Interpretation Comments POC-GLUCOSE METER 103 mg/dL 70-110 TESTED AT [place] [address] ([facility]) (test code = FOSTER Paul [facility] 1538) [address] [id number] 08:07:00 Test Item Value Reference Range Interpretation Comments FERRITIN (BEAKER) (test code = 2044 ng/mL 5-275 H 361) POCT-GLUCOSE [id number] 07:57:00 Test Item Value Reference Range Interpretation Comments POC-GLUCOSE METER 76 mg/dL 70-110 TESTED AT [facility] 6720 (BEAKER) (test [place] = [place] [address] 1538) RAD, CHEST, 1 VIEW, NON [id number] 07:57:00Reason for exam:->Post opShould this be performed [...] MDReport Verified Date/Time: 12/24/2018 07:57:06 Reading Location: [facility] Radiology Reading Room CBC (HEMOGRAM ONLY) [...] H (test code = 413) BASIC METABOLIC [id number] 07:14:00 Test Item Value Reference Range Interpretation [...] S NOT APPLICABLE FOR DIALYSIS PATIEN TS. [id number] 07:08:00 Test Item Value Reference Range Interpretation [...] % 20-55 (test code = 2590) PROTHROMBIN [id number] 07:05:00 Test Item Value Reference Range Interpretation Comments PROTIME (BEAKER) (test code = 38.7 seconds 11.7-14.7 H 759) INR ([facility]) (test code = 370) 3.9 <=5.9 RECOMMENDED COUMADIN/WARFARIN INR THERAPY RANGESSTANDARD DOSE: 2.0 - 3.0 Includes: PROPHYLAXIS forvenous thrombosis, systemic embolization; TREATMENT for venous thrombosis and/or pulmonary embolus.HIGH RISK: Target INR is 2.5-3.5 for patients with mechanical heart valves.POCT-GLUCOSE [id number] 00:26:00 Test Item Value Reference Range Interpretation Comments POC-GLUCOSE METER 86 mg/dL 70-110 TESTED AT [place] [address] ([facility]) (test code = FOSTER Paul [facility] [address] 1538) POCT-GLUCOSE [id number] 00:26:00 Test Item Value Reference Range Interpretation Comments POC-GLUCOSE METER 137 mg/dL 70-110 H TESTED AT [place] [address] ([facility]) (test code = FOSTER Paul [facility] 1538) [address] POCT-GLUCOSE [id number] 16:07:00 Test Item Value Reference Range Interpretation Comments POC-GLUCOSE METER 72 mg/dL 70-110 TESTED AT [place] [address] ([facility]) (test code = FOSTER Paul [facility] [address] 1538) POCT-GLUCOSE [id number] 16:07:00 Test Item Value Reference Range Interpretation Comments POC-GLUCOSE METER 61 mg/dL 70-110 L TESTED AT [place] [address] ([facility]) (test code = FOSTER Paul [facility] [address] 1538) POCT-GLUCOSE [id number] 11:27:00 Test Item Value Reference Range Interpretation Comments POC-GLUCOSE METER 82 mg/dL 70-110 TESTED AT [place] [address] ([facility]) (test code = FOSTER Paul [facility] [address] 1538) POCT-GLUCOSE [id number] 10:32:00 Test Item Value Reference Range Interpretation Comments POC-GLUCOSE METER 43 mg/dL 70-110 L TESTED AT [place] [address] ([facility]) (test code = FOSTER Paul [facility] [address] 1538) BASIC METABOLIC [id number] 07:28:00 Test Item Value Reference Range Interpretation Comments SODIUM ([facility]) 132 meq/L 136-145 L (test code = 381) POTASSIUM ([facility]) 5.4 meq/L 3.5-5.1 H Specimen slightly (test [...] S NOT APPLICABLE FOR DIALYSIS PATIEN TS. [id number] 07:24:00 Test Item Value Reference Range Interpretation Comments MAGNESIUM (BEAKER) 2.0 mg/dL 1.6-2.6 Specimen slightly (test code = 627) hemolyzed [id number] 07:24:00 Test Item Value Reference Range Interpretation Comments PHOSPHORUS (BEAKER) 4.4 mg/dL 2.3-4.7 Specimen slightly (test code = 604) hemolyzed PROTHROMBIN [id number] 07:20:00 Test Item Value Reference Range Interpretation [...] = 413) RAD, CHEST, 1 VIEW, NON [id number] 04:22:00Reason for exam:->Post opShould this be performed [...] MDReport Verified Date/Time: 12/23/2018 04:22:43 Reading Location: [facility] B1 C013Y CT Body Reading Room POCT-GLUCOSE [id number] 03:01:00 Test Item Value Reference Range Interpretation Comments POC-GLUCOSE METER 85 mg/dL 70-110 TESTED AT [facility] [address] (BEAKER) (test code = [place] [address] 1538) BASIC METABOLIC [id number] 18:52:00 Test Item Value Reference Range Interpretation [...] H (BEAKER) (test code = 413) ANAEROBIC [id number] 17:00:00 Test Item Value Reference Range Interpretation Comments CULTURE (BEAKER) (test No anaerobes isolated code = 1095) RAD, CHEST, 1 VIEW, NON [id number] 07:44:00Reason for exam:->Post opShould this be performed [...] Arteaga Verified Date/Time: 12/22/2018 07:44:12 Reading Location: [facility] Radiology Reading Room PROTHROMBIN TIME/[id number] 04:31:00 Test Item Value Reference Range Interpretation [...] mg/dL 70-110 H TESTED AT [facility] ([facility]) (test code = [place] 1538) [address] POCT-GLUCOSE [id number] 13:22:00 Test Item Value Reference Range Interpretation Comments POC-GLUCOSE METER 100 mg/dL 70-110 TESTED AT [facility] ([facility]) (test code = [place] 1538) [address] RAD, CHEST, 1 VIEW, NON [id number] 08:01:00Reason for exam:->Post opShould this be performed [...] Lisa Verified Date/Time: 12/21/2018 08:01:46 Reading Location: [address] Neuro Reading Room PROTHROMBIN TIME/[id number] 05:30:00 Test Item Value Reference Range Interpretation Comments PROTIME (JARROD) (test code = 39.1 seconds 11.7-14.7 H 759) INR (BEZOILA) (test code = 370) 4.0 <=5.9 RECOMMENDED COUMADIN/WARFARIN INR THERAPY RANGESSTANDARD DOSE: 2.0 - 3.0 Includes: PROPHYLAXIS forvenous thrombosis, systemic embolization; TREATMENT for venous thrombosis and/or pulmonary embolus.HIGH RISK: Target INR is 2.5-3.5 for patients with mechanical heart valves.While on warfarin.POCT-GLUCOSE METER 2018-12-20 22:10:00 Test Item Value Reference Range Interpretation Comments POC-GLUCOSE METER 98 mg/dL 70-110 TESTED AT [facility] (BEAKER) (test code = [place] [facility] [address] 1538) POCT-GLUCOSE [id number] 17:40:00 Test Item Value Reference Range Interpretation Comments POC-GLUCOSE METER 91 mg/dL 70-110 TESTED AT [facility] (BEAKER) (test code = [place] [facility] [address] 1538) POCT-GLUCOSE [id number] 13:13:00 Test Item Value Reference Range Interpretation Comments POC-GLUCOSE METER 73 mg/dL 70-110 TESTED AT [facility] (BEAKER) (test code = [place] [facility] [address] 1538) SURGICALLY OBTAINED CULTURE + GRAM [id number] 08:41:00 Test Item Value Reference Range Interpretation Comments CULTURE (BEAKER) (test No growth code = 1095) GRAM STAIN RESULT No White blood cells (BEAKER) (test code = seen 1123) GRAM STAIN RESULT No organisms seen (BEAKER) (test code = 99882) RAD, CHEST, 1 VIEW, NON [id number] 08:20:00Reason for exam:->Post opShould this be performed [...] MDReport Verified Date/Time: 12/20/2018 08:20:58 Reading Location: [address] Neuro Reading Room BASIC METABOLIC [id number] 08:09:00 Test Item Value Reference Range Interpretation [...] S NOT APPLICABLE FOR DIALYSIS PATIEN TS. [id number] 08:00:00 Test Item Value Reference Range Interpretation Comments PHOSPHORUS (BEAKER) (test code = 4.5 mg/dL 2.3-4.7 604) CALCIUM, [id number] 07:20:00 Test Item Value Reference Range Interpretation Comments CALCIUM IONIZED (BEAKER) (test 1.04 mmol/L 1.12-1.27 L code = 698) PH, BLOOD (BEAKER) (test code = 7.35 1810) PROTHROMBIN [id number] 07:04:00 Test Item Value Reference Range Interpretation [...] 0-0 (BEAKER) (test code = 413) POCT-GLUCOSE [id number] 22:00:00 Test Item Value Reference Range Interpretation Comments POC-GLUCOSE METER 188 mg/dL 70-110 H TESTED AT [facility] (BEAKER) (test code = [place] 1538) [address] TISSUE [id number] 18:15:00Surgical Pathology Report Case: [id number] Authorizing Provider: Moiz Vargas, Collected: 12/17/2018 0950 Ordering Location: [facility] Received: 12/17/2018 1129 PERIOPERATIVE SERVICES Pathologist: Kwan Perla MD Specimen: Pleural, Right, RIGHT PLEURAL PEEL PLEURA, RIGHT, DECORTICATION- MILD CHRONIC INFLAMMATION AND GRANULATION TISSUE- ORGANIZING BLOOD CLOTS- NO MALIGNANT CELLS IDENTIFIED Signing Pathologist Direct Phone Line: [phone] signed by Kwan Perla MD on 12/19/2018 at 6:15 PMCorrelation with microbiology cultures is recommended.25154Aguvjvq effusion and other conditions classified elsewhereRight pleural peelThe specimen is received in a formalin-filled container labeled with the patient's information and labeled "right pleural peel" and consists of multiple fragments of porter-red, dusky, firm tissue measuring 6 x 5 x 0.4 cm in aggregate. Lot Worker sections are submitted in A1-A3. CG/ew Performed.POCT-GLUCOSE [id number] 17:11:00 Test Item Value Reference Range Interpretation Comments POC-GLUCOSE METER 126 mg/dL 70-110 H TESTED AT [place] [address] ([facility]) (test code = [facility] 1538) [address] POCT-GLUCOSE [id number] 12:57:00 Test Item Value Reference Range Interpretation Comments POC-GLUCOSE METER 143 mg/dL 70-110 H TESTED AT [place] [address] ([facility]) (test code = [facility] 1538) [address] POCT-GLUCOSE [id number] 07:27:00 Test Item Value Reference Range Interpretation Comments POC-GLUCOSE METER 141 mg/dL 70-110 H TESTED AT [place] [address] ([facility]) (test code = [facility] 1538) [address] CALCIUM, [id number] 06:29:00 Test Item Value Reference Range Interpretation Comments CALCIUM IONIZED ([facility]) (test 1.00 mmol/L 1.12-1.27 L code = 698) PH, BLOOD ([facility]) (test code = 7.45 1810) RAD, CHEST, 1 VIEW, NON [id number] 04:54:00Reason for exam:->Post opShould this be performed [...] There are median sternotomy wires. Signed: Raz [facility] Verified Date/Time: 2018 04:54:49 Reading Location: [facility] B1 C013Y CT Body Reading Room BASIC METABOLIC [id number] 04:19:00 Test Item Value Reference Range Interpretation [...] S NOT APPLICABLE FOR DIALYSIS PATIEN TS. [id number] 04:16:00 Test Item Value Reference Range Interpretation Comments PHOSPHORUS (BEAKER) (test code = 3.4 mg/dL 2.3-4.7 604) PROTHROMBIN [id number] 04:06:00 Test Item Value Reference Range Interpretation [...] 0-0 (BEAKER) (test code = 413) POCT-GLUCOSE [id number] 22:11:00 Test Item Value Reference Range Interpretation Comments POC-GLUCOSE METER 149 mg/dL 70-110 H TESTED AT [place] [address] ([facility]) (test code = [facility] 1538) [address] POCT-GLUCOSE [id number] 17:52:00 Test Item Value Reference Range Interpretation Comments POC-GLUCOSE METER 122 mg/dL 70-110 H TESTED AT [place] [address] ([facility]) (test code = [facility] 1538) [address] POCT-GLUCOSE [id number] 14:26:00 Test Item Value Reference Range Interpretation Comments POC-GLUCOSE METER 98 mg/dL 70-110 TESTED AT [place] [address] ([facility]) (test code = [facility] [address] 1538) HEMOGLOBIN AND [id number] 12:47:00 Test Item Value Reference Range Interpretation Comments HEMOGLOBIN (BEAKER) (test code = 9.2 GM/DL 13.7-17.5 L 410) HEMATOCRIT (BEAKER) (test code = 28.3 % 40.1-51.0 L 411) POCT-GLUCOSE [id number] 09:38:00 Test Item Value Reference Range Interpretation Comments POC-GLUCOSE METER 73 mg/dL 70-110 TESTED AT [facility] (BEAKER) (test code = [place] [address] 1538) PROTEIN ELECTROPHORESIS, [id number] 09:21:00 Test Item Value Reference Range Interpretation [...] (test code = 391) INTERPRETATION-119 Mild polyclonal (AKER) (test code = elevation of gamma 2615) fraction, suggesting component of chronic inflammation. No monoclonal bands detected. [id number] Amanda De Jesus MD ([facility]) (test code = (electronic signature) 2616) PROTEIN TOTAL SERUM, 7.5 gm/dL 6.0-8.3 SPEP (BEAKER) (test code = 2660) RAD, CHEST, 1 VIEW, NON [id number] 06:47:00Reason for exam:->Post opShould this be performed [...] Tayloreport Verified Date/Time: 12/18/2018 06:47:21 Reading Location: [facility] C013Y CT Body Reading Room [id number] 06:20:00 Test Item Value Reference Range Interpretation Comments MAGNESIUM (BEAKER) (test code = 2.2 mg/dL 1.6-2.6 627) CALCIUM, [id number] 06:00:00 Test Item Value Reference Range Interpretation Comments CALCIUM IONIZED (BEAKER) (test 1.09 mmol/L 1.12-1.27 L code = 698) PH, BLOOD (BEAKER) (test code = 7.34 1810) BASIC METABOLIC [id number] 05:07:00 Test Item Value Reference Range Interpretation [...] S NOT APPLICABLE FOR DIALYSIS PATIEN TS. [id number] 04:54:00 Test Item Value Reference Range Interpretation Comments PHOSPHORUS (BEAKER) (test code = 6.3 mg/dL 2.3-4.7 H 604) HEPATIC FUNCTION [id number] 04:54:00 Test Item Value Reference Range Interpretation [...] (test code = 23 U/L 6-55 347) [id number] 04:51:00 Test Item Value Reference Range Interpretation Comments PARTIAL THROMBOPLASTIN TIME 38.6 seconds 22.5-36.0 H (BEAKER) (test code = 760) PROTHROMBIN [id number] 04:50:00 Test Item Value Reference Range Interpretation Comments PROTIME (BEAKER) (test code = 16.0 seconds 11.7-14.7 H 759) INR (BEAKER) (test code = 370) 1.3 <=5.9 RECOMMENDED COUMADIN/WARFARIN INR THERAPY RANGESSTANDARD DOSE: 2.0 - 3.0 Includes: PROPHYLAXIS forvenous thrombosis, systemic embolization; TREATMENT for venous thrombosis and/or pulmonary embolus.HIGH RISK: Target INR is 2.5-3.5 for patients with mechanical heart valves.[id number] 04:50:00 Test Item Value Reference Range Interpretation Comments FIBRINOGEN LEVEL (BEAKER) (test 494 mg/dl 225-434 H code = 658) PLATELET [id number] 04:38:00 Test Item Value Reference Range Interpretation [...] WBC 0-0 (BEAKER) (test code = 413) [id number] 18:48:00 Test Item Value Reference Range Interpretation Comments MAGNESIUM (BEAKER) (test code = 2.4 mg/dL 1.6-2.6 627) POCT-GLUCOSE [id number] 18:42:00 Test Item Value Reference Range Interpretation Comments POC-GLUCOSE METER 121 mg/dL 70-110 H TESTED AT [facility] (BEAKER) (test code = [place] 1538) [address] HEMOGLOBIN AND [id number] 18:37:00 Test Item Value Reference Range Interpretation Comments HEMOGLOBIN (BEAKER) (test code = 10.0 GM/DL 13.7-17.5 L 410) HEMATOCRIT (BEAKER) (test code = 31.3 % 40.1-51.0 L 411) RAD, CHEST, 1 VIEW, NON [id number] 13:28:00Reason for exam:->post opShould this be performed [...] MDReport Verified Date/Time: 12/17/2018 13:28:23 Reading Location: [facility] Reading Room BASIC METABOLIC [id number] 13:03:00 Test Item Value Reference Range Interpretation [...] S NOT APPLICABLE FOR DIALYSIS PATIEN TS. [id number] 12:53:00 Test Item Value Reference Range Interpretation Comments PHOSPHORUS (BEAKER) (test code = 4.3 mg/dL 2.3-4.7 604) [id number] 12:53:00 Test Item Value Reference Range Interpretation Comments MAGNESIUM (BEAKER) (test code = 1.5 mg/dL 1.6-2.6 L 627) LACTIC ACID, [id number] 12:50:00 Test Item Value Reference Range Interpretation Comments LACTATE BLOOD ARTERIAL (2) 0.9 mmol/L 0.5-2.2 (BEAKER) (test code = 2874) CBC W/PLT COUNT & AUTO [id number] 12:47:00 Test Item Value Reference Range Interpretation [...] PERCENT (BEAKER) (test code = 2801) CALCIUM, [id number] 12:26:00 Test Item Value Reference Range Interpretation Comments CALCIUM IONIZED (BEAKER) (test 1.07 mmol/L 1.12-1.27 L code = 698) PH, BLOOD (BEAKER) (test code = 7.38 1810) BLOOD GAS, [id number] 12:26:00 Test Item Value Reference Range Interpretation [...] (test code = 1819) 40.0 % CALCIUM, [id number] 10:25:00 Test Item Value Reference Range Interpretation Comments CALCIUM IONIZED (BEAKER) (test 1.09 mmol/L 1.12-1.27 L code = 698) PH, BLOOD (BEAKER) (test code = 7.45 1810) BLOOD GAS, [id number] 10:22:00 Test Item Value Reference Range Interpretation [...] code = 1819) 96.0 % SODIUM NA-STAT [id number] 10:22:00 Test Item Value Reference Range Interpretation Comments SODIUM (BEAKER) (test code = 381) 133 meq/L 135-148 L GLUCOSE-STAT [id number] 10:22:00 Test Item Value Reference Range Interpretation Comments GLUCOSE RANDOM (BEAKER) (test code 116 mg/dL 70-110 H = 652) HGB/HCT (H&H) - STAT [id number] 10:22:00 Test Item Value Reference Range Interpretation Comments HEMOGLOBIN (BEAKER) (test code = 8.9 g/dL 13.0-16.8 L 410) HEMATOCRIT (BEAKER) (test code = 26.0 % 40.0-50.0 L 411) POTASSIUM-STAT [id number] 10:20:00 Test Item Value Reference Range Interpretation Comments POTASSIUM (BEAKER) (test code = 4.0 meq/L 3.6-5.5 379) HEMOGLOBIN [id number] 09:33:00 Test Item Value Reference Range Interpretation Comments HEMOGLOBIN A1C (BEAKER) (test code = 5.9 % 4.3-6.1 368) BLOOD GAS, [id number] 09:27:00 Test Item Value Reference Range Interpretation [...] code = 1819) 100.0 % SODIUM NA-STAT [id number] 09:27:00 Test Item Value Reference Range Interpretation Comments SODIUM (BEAKER) (test code = 381) 133 meq/L 135-148 L HGB/HCT (H&H) - STAT [id number] 09:27:00 Test Item Value Reference Range Interpretation Comments HEMOGLOBIN (BEAKER) (test code = 9.4 g/dL 13.0-16.8 L 410) HEMATOCRIT (BEAKER) (test code = 28.0 % 40.0-50.0 L 411) GLUCOSE-STAT [id number] 09:26:00 Test Item Value Reference Range Interpretation Comments GLUCOSE RANDOM (BEAKER) (test code = 97 mg/dL 70-110 652) POTASSIUM-STAT [id number] 09:26:00 Test Item Value Reference Range Interpretation Comments POTASSIUM (BEAKER) (test code = 3.9 meq/L 3.6-5.5 379) CALCIUM, [id number] 09:26:00 Test Item Value Reference Range Interpretation Comments CALCIUM IONIZED (BEAKER) (test 1.17 mmol/L 1.12-1.27 code = 698) PH, BLOOD (BEAKER) (test code = 7.44 1810) BLOOD GAS, [id number] 08:32:00 Test Item Value Reference Range Interpretation [...] code = 1819) 96.0 % SODIUM NA-STAT [id number] 08:32:00 Test Item Value Reference Range Interpretation Comments SODIUM (BEAKER) (test code = 381) 133 meq/L 135-148 L GLUCOSE-STAT [id number] 08:32:00 Test Item Value Reference Range Interpretation Comments GLUCOSE RANDOM (BEAKER) (test code 113 mg/dL 70-110 H = 652) HGB/HCT (H&H) - STAT [id number] 08:32:00 Test Item Value Reference Range Interpretation Comments HEMOGLOBIN (BEAKER) (test code = 9.9 g/dL 13.0-16.8 L 410) HEMATOCRIT (BEAKER) (test code = 29.0 % 40.0-50.0 L 411) CALCIUM, [id number] 08:31:00 Test Item Value Reference Range Interpretation Comments CALCIUM IONIZED (BEAKER) (test 1.05 mmol/L 1.12-1.27 L code = 698) PH, BLOOD (BEAKER) (test code = 7.49 1810) POTASSIUM-STAT [id number] 08:29:00 Test Item Value Reference Range Interpretation Comments POTASSIUM (BEAKER) (test code = 3.6 meq/L 3.6-5.5 379) POCT-GLUCOSE [id number] 06:20:00 Test Item Value Reference Range Interpretation Comments POC-GLUCOSE METER 99 mg/dL 70-110 TESTED AT [facility] ([facility]) (test code = [place] [address] 1538) [id number] 05:05:00 Test Item Value Reference Range Interpretation Comments PARTIAL THROMBOPLASTIN TIME 75.6 seconds 22.5-36.0 H (BEAKER) (test code = 760) LIPID [id number] 05:04:00 Test Item Value Reference Range Interpretation [...] Borderline 130-159 High 160-189 Very High >=190PROTHROMBIN [id number] 05:03:00 Test Item Value Reference Range Interpretation Comments PROTIME (BEAKER) (test code = 15.4 seconds 11.7-14.7 H 759) INR (BEAKER) (test code = 370) 1.2 <=5.9 RECOMMENDED COUMADIN/WARFARIN INR THERAPY RANGESSTANDARD DOSE: 2.0 - 3.0 Includes: PROPHYLAXIS forvenous thrombosis, systemic embolization; TREATMENT for venous thrombosis and/or pulmonary embolus.HIGH RISK: Target INR is 2.5-3.5 for patients with mechanical heart valves.POCT-GLUCOSE [id number] 21:17:00 Test Item Value Reference Range Interpretation Comments POC-GLUCOSE METER 223 mg/dL 70-110 H TESTED AT [facility] ([facility]) (test code = [place] [facility] 1538) [address] COMPREHENSIVE METABOLIC [id number] 18:57:00 Test Item Value Reference Range Interpretation [...] S NOT APPLICABLE FOR DIALYSIS PATIEN TS. [id number] 18:46:00 Test Item Value Reference Range Interpretation Comments MAGNESIUM (BEAKER) (test code = 1.8 mg/dL 1.6-2.6 627) CBC W/PLT COUNT & AUTO [id number] 18:10:00 Test Item Value Reference Range Interpretation [...] PERCENT (AKER) (test code = 2801) POCT-GLUCOSE [id number] 17:34:00 Test Item Value Reference Range Interpretation Comments POC-GLUCOSE METER 169 mg/dL 70-110 H TESTED AT [place] [address] ([facility]) (test code = [place] [facility] 1538) [address] HEPARIN [id number] 13:40:00 Test Item Value Reference Range Interpretation Comments HEPARIN ANTIBODY ([facility]) (test code Negative Negative = 646) HEPARIN ANTIBODY OD ([facility]) (test 0.105 <0.400 code = 2659) 4T TOTAL SCORE ([facility]) (test code = 4 1990) Probability of HIT based on scoring system: 6-8 = High probability; 4-5 = intermediate probability;0-3 = low probabilityPOCT-GLUCOSE [id number] 12:51:00 Test Item Value Reference Range Interpretation Comments POC-GLUCOSE METER 66 mg/dL 70-110 L Notified R Toy PÉREZ/TESTED AT ([facility]) (test code = [place] [address] JOSE ANTONIO 1538) [place] [address] POCT-GLUCOSE [id number] 07:54:00 Test Item Value Reference Range Interpretation Comments POC-GLUCOSE METER 75 mg/dL 70-110 TESTED AT [place] [address] ([facility]) (test code = [place] [facility] [address] 1538) [id number] 04:21:00 Test Item Value Reference Range Interpretation Comments PROTIME ([facility]) (test code = 15.4 seconds 11.7-14.7 H 759) INR ([facility]) (test code = 370) 1.2 <=5.9 PARTIAL THROMBOPLASTIN TIME 74.0 seconds 22.5-36.0 H ([facility]) (test code = 760) RECOMMENDED COUMADIN/WARFARIN INR THERAPY RANGESSTANDARD DOSE: 2.0 - 3.0 Includes: PROPHYLAXIS forvenous thrombosis, systemic embolization; TREATMENT for venous thrombosis and/or pulmonary embolus.HIGH RISK: Target INR is 2.5-3.5 for patients with mechanical heart valves.[id number] 04:20:00 Test Item Value Reference Range Interpretation Comments FIBRINOGEN LEVEL ([facility]) (test 525 mg/dl 225-434 H code = 658) POCT-GLUCOSE [id number] 21:25:00 Test Item Value Reference Range Interpretation Comments POC-GLUCOSE METER 129 mg/dL 70-110 H TESTED AT [place] [address] ([facility]) (test code = [facility] 1538) [address] [id number] 18:23:00 Test Item Value Reference Range Interpretation Comments PARTIAL THROMBOPLASTIN TIME 72.0 seconds 22.5-36.0 H ([facility]) (test code = 760) POCT-GLUCOSE [id number] 16:20:00 Test Item Value Reference Range Interpretation Comments POC-GLUCOSE METER 142 mg/dL 70-110 H TESTED AT [place] [address] ([facility]) (test code = [facility] 1538) [address] POCT-GLUCOSE [id number] 13:05:00 Test Item Value Reference Range Interpretation Comments POC-GLUCOSE METER 86 mg/dL 70-110 TESTED AT [place] [address] ([facility]) (test code = [facility] [address] 1538) [id number] 11:19:00 Test Item Value Reference Range Interpretation Comments PARTIAL THROMBOPLASTIN TIME 72.3 seconds 22.5-36.0 H ([facility]) (test code = 760) POCT-GLUCOSE [id number] 07:56:00 Test Item Value Reference Range Interpretation Comments POC-GLUCOSE METER 87 mg/dL 70-110 TESTED AT [place] [address] ([facility]) (test code = [facility] [address] 1538) [id number] 03:13:00 Test Item Value Reference Range Interpretation Comments PARTIAL THROMBOPLASTIN TIME 97.1 seconds 22.5-36.0 H (BEAKER) (test code = 760) PROTHROMBIN [id number] 03:11:00 Test Item Value Reference Range Interpretation [...] WBC 0-0 (test code = 413) POCT-GLUCOSE [id number] 21:26:00 Test Item Value Reference Range Interpretation Comments POC-GLUCOSE METER 121 mg/dL 70-110 H TESTED AT [place] [address] ([facility]) (test code = [place] 1538) [address] [id number] 19:05:00 Test Item Value Reference Range Interpretation Comments PARTIAL THROMBOPLASTIN TIME 64.0 seconds 22.5-36.0 H ([facility]) (test code = 760) POCT-GLUCOSE [id number] 17:24:00 Test Item Value Reference Range Interpretation Comments POC-GLUCOSE METER 131 mg/dL 70-110 H TESTED AT [place] [address] ([facility]) (test code = [place] 1538) [address] [id number] 13:32:00 Test Item Value Reference Range Interpretation Comments PARTIAL THROMBOPLASTIN TIME 81.4 seconds 22.5-36.0 H ([facility]) (test code = 760) POCT-GLUCOSE [id number] 12:32:00 Test Item Value Reference Range Interpretation Comments POC-GLUCOSE METER 102 mg/dL 70-110 TESTED AT [place] [address] ([facility]) (test code = [place] 1538) [address] POCT-GLUCOSE [id number] 07:07:00 Test Item Value Reference Range Interpretation Comments POC-GLUCOSE METER 113 mg/dL 70-110 H TESTED AT [place] [address] ([facility]) (test code = [place] 1538) [address] [id number] 05:47:00 Test Item Value Reference Range Interpretation Comments PARTIAL THROMBOPLASTIN TIME 91.8 seconds 22.5-36.0 H ([facility]) (test code = 760) POCT-GLUCOSE [id number] 21:27:00 Test Item Value Reference Range Interpretation Comments POC-GLUCOSE METER 90 mg/dL 70-110 TESTED AT [place] [address] ([facility]) (test code = [facility] [place] [address] 1538) POCT-GLUCOSE [id number] 17:46:00 Test Item Value Reference Range Interpretation Comments POC-GLUCOSE METER 175 mg/dL 70-110 H TESTED AT [place] [address] ([facility]) (test code = [facility] [place] 1538) [address] POCT-GLUCOSE [id number] 17:30:00 Test Item Value Reference Range Interpretation Comments POC-GLUCOSE METER 84 mg/dL 70-110 TEST[facility] AT [place] [address] [facility] (test code = [place] [facility] [address] 1538) [id number] 13:20:00 Test Item Value Reference Range Interpretation Comments PARTIAL THROMBOPLASTIN TIME 68.4 seconds 22.5-36.0 H (BEAKER) (test code = 760) BASIC METABOLIC [id number] 10:36:00 Test Item Value Reference Range Interpretation [...] NOT APPLICABLE FOR DIALYSIS PATIEN TS. POCT-GLUCOSE [id number] 07:43:00 Test Item Value Reference Range Interpretation Comments POC-GLUCOSE METER 84 mg/dL 70-110 TESTED AT [facility] [address] (BEAKER) (test code = FOSTER Paul [facility] [id number] 1538) [id number] 06:52:00 Test Item Value Reference Range Interpretation Comments PARTIAL THROMBOPLASTIN TIME 76.5 seconds 22.5-36.0 H (BEAKER) (test code = 760) PROTHROMBIN [id number] 06:51:00 Test Item Value Reference Range Interpretation [...] 417) IMMATURE GRANULOCYTES-RELATIVE 1 % 0-1 PERCENT ([facility]) (test code = 2801) [id number] 00:11:00 Test Item Value Reference Range Interpretation Comments PARTIAL THROMBOPLASTIN TIME 59.7 seconds 22.5-36.0 H ([facility]) (test code = 760) POCT-GLUCOSE [id number] 21:33:00 Test Item Value Reference Range Interpretation Comments POC-GLUCOSE METER 113 mg/dL 70-110 H TESTED AT [place] [address] ([facility]) (test code = [place] 1538) [address] POCT-GLUCOSE [id number] 18:08:00 Test Item Value Reference Range Interpretation Comments POC-GLUCOSE METER 128 mg/dL 70-110 H TESTED AT [place] [address] ([facility]) (test code = [place] 1538) [address] [id number] 16:51:00 Test Item Value Reference Range Interpretation Comments PARTIAL THROMBOPLASTIN TIME 71.6 seconds 22.5-36.0 H ([facility]) (test code = 760) POCT-GLUCOSE [id number] 12:39:00 Test Item Value Reference Range Interpretation Comments POC-GLUCOSE METER 124 mg/dL 70-110 H TESTED AT [place] [address] ([facility]) (test code = [place] 1538) [address] [id number] 09:07:00 Test Item Value Reference Range Interpretation Comments PARTIAL THROMBOPLASTIN TIME 96.6 seconds 22.5-36.0 H ([facility]) (test code = 760) POCT-GLUCOSE [id number] 07:48:00 Test Item Value Reference Range Interpretation Comments POC-GLUCOSE METER 105 mg/dL 70-110 TESTED AT [place] [address] ([facility]) (test code = [place] 1538) [address] BASIC METABOLIC [id number] 01:54:00 Test Item Value Reference Range Interpretation [...] S NOT APPLICABLE FOR DIALYSIS PATIEN TS. [id number] 01:37:00 Test Item Value Reference Range Interpretation Comments PARTIAL THROMBOPLASTIN TIME 53.4 seconds 22.5-36.0 H (BEAKER) (test code = 760) PROTHROMBIN TIME/[id number] 01:36:00 Test Item Value Reference Range Interpretation [...] PERCENT (BEAKER) (test code = 2801) POCT-GLUCOSE [id number] 21:57:00 Test Item Value Reference Range Interpretation Comments POC-GLUCOSE METER 165 mg/dL 70-110 H TESTED AT [facility] 6720 (BEAKER) (test code = [place] 1538) [address] [id number] 18:46:00 Test Item Value Reference Range Interpretation Comments PARTIAL THROMBOPLASTIN TIME 39.0 seconds 22.5-36.0 H [facility] (test code = 760) POCT-GLUCOSE [id number] 17:51:00 Test Item Value Reference Range Interpretation Comments POC-GLUCOSE METER 157 mg/dL 70-110 H TESTED AT [facility] 67 ([facility]) (test code = MARIA GTX Humberto [facility] 1538) [address] POCT-GLUCOSE [id number] 17:09:00 Test Item Value Reference Range Interpretation Comments POC-GLUCOSE METER 162 mg/dL 70-110 H TESTED AT [place] [address] ([facility]) (test code = [facility] Humberto [facility] 1538) [address] [id number] 16:07:00 Test Item Value Reference Range Interpretation Comments PARTIAL THROMBOPLASTIN TIME 117.0 seconds 22.5-36.0 H ([facility]) (test code = 760) POCT-GLUCOSE [id number] 13:28:00 Test Item Value Reference Range Interpretation Comments POC-GLUCOSE METER 88 mg/dL 70-110 TESTED AT [place] [address] ([facility]) (test code = [facility] Humberto [facility] [address]) [id number] 09:17:00 Test Item Value Reference Range Interpretation Comments PARTIAL THROMBOPLASTIN TIME 71.7 seconds 22.5-36.0 H ([facility]) (test code = 760) POCT-GLUCOSE [id number] 08:07:00 Test Item Value Reference Range Interpretation Comments POC-GLUCOSE METER 137 mg/dL 70-110 H TESTED AT [facility] 6720 ([facility]) (test code = [facility] Humberto [facility] 1538) [address] [id number] 02:27:00 Test Item Value Reference Range Interpretation Comments PARTIAL THROMBOPLASTIN TIME 62.4 seconds 22.5-36.0 H (BEAKER) (test code = 760) PROTHROMBIN TIME/[id number] 02:26:00 Test Item Value Reference Range Interpretation Comments PROTIME (BEAKER) (test code = 20.0 seconds 11.7-14.7 H 759) INR (BEAKER) (test code = 370) 1.7 <=5.9 RECOMMENDED COUMADIN/WARFARIN INR THERAPY RANGESSTANDARD DOSE: 2.0 - 3.0 Includes: PROPHYLAXIS forvenous thrombosis, systemic embolization; TREATMENT for venous thrombosis and/or pulmonary embolus.HIGH RISK: Target INR is 2.5-3.5 for patients with mechanical heart valves.BASIC METABOLIC [id number] 02:02:00 Test Item Value Reference Range Interpretation [...] PATIEN TS. CBC W/PLT COUNT & AUTO [id number] 01:42:00 Test Item Value Reference Range Interpretation [...] PERCENT (BEAKER) (test code = 2801) POCT-GLUCOSE [id number] 21:12:00 Test Item Value Reference Range Interpretation Comments POC-GLUCOSE METER 199 mg/dL 70-110 H TESTED AT [facility] 6720 ([facility]) (test code = [place] 1538) [address] POCT-GLUCOSE [id number] 17:39:00 Test Item Value Reference Range Interpretation Comments POC-GLUCOSE METER 145 mg/dL 70-110 H TESTED AT [facility] 6720 ([facility]) (test code = [place] 1538) [address] [id number] 17:33:00 Test Item Value Reference Range Interpretation Comments PARTIAL THROMBOPLASTIN TIME 47.3 seconds 22.5-36.0 H (BEAKER) (test code = 760) POCT-GLUCOSE [id number] 12:53:00 Test Item Value Reference Range Interpretation Comments POC-GLUCOSE METER 203 mg/dL 70-110 H TESTED AT [facility] 6720 (BEAKER) (test code = [facility] 1538) [address] POCT-GLUCOSE [id number] 08:28:00 Test Item Value Reference Range Interpretation Comments POC-GLUCOSE METER 98 mg/dL 70-110 TESTED AT [place] [id number] [facility] (test code = [facility] [address]38) BASIC METABOLIC [id number] 05:52:00 Test Item Value Reference Range Interpretation [...] NOT APPLICABLE FOR DIALYSIS PATIEN TS. PROTHROMBIN [id number] 05:51:00 Test Item Value Reference Range Interpretation [...] PERCENT (BEAKER) (test code = 2801) POCT-GLUCOSE [id number] 20:54:00 Test Item Value Reference Range Interpretation Comments POC-GLUCOSE METER 126 mg/dL 70-110 H TESTED AT [place] [address] ([facility]) (test code = [facility] 1538) [address] POCT-GLUCOSE [id number] 18:47:00 Test Item Value Reference Range Interpretation Comments POC-GLUCOSE METER 70 mg/dL 70-110 TESTED AT [place] [address] ([facility]) (test code = [facility] [address]38) POCT-GLUCOSE [id number] 13:25:00 Test Item Value Reference Range Interpretation Comments POC-GLUCOSE METER 120 mg/dL 70-110 H TESTED AT [place] [address] ([facility]) (test code = [facility] 1538) [address] POCT-GLUCOSE [id number] 09:32:00 Test Item Value Reference Range Interpretation Comments POC-GLUCOSE METER 104 mg/dL 70-110 TESTED AT [place] [address] ([facility]) (test code = [facility] 1538) [address] BASIC METABOLIC [id number] 05:59:00 Test Item Value Reference Range Interpretation [...] NOT APPLICABLE FOR DIALYSIS PATIEN TS. PROTHROMBIN TIME/[id number] 05:20:00 Test Item Value Reference Range Interpretation [...] PERCENT (BEAKER) (test code = 2801) POCT-GLUCOSE [id number] 21:14:00 Test Item Value Reference Range Interpretation Comments POC-GLUCOSE METER 200 mg/dL 70-110 H TESTED AT [place] [address] ([facility] (test code = [facility] Humberto [facility] 1538) [address] POCT-GLUCOSE [id number] 17:34:00 Test Item Value Reference Range Interpretation Comments POC-GLUCOSE METER 143 mg/dL 70-110 H TESTED AT [place] [address] ([facility] (test code = [facility] Humberto [facility] 1538) [address] POCT-GLUCOSE [id number] 12:04:00 Test Item Value Reference Range Interpretation Comments POC-GLUCOSE METER 160 mg/dL 70-110 H TESTED AT [place] [address] ([facility] (test code = [facility] Humberto [facility] 1538) [address] POCT-GLUCOSE [id number] 08:08:00 Test Item Value Reference Range Interpretation Comments POC-GLUCOSE METER 154 mg/dL 70-110 H TESTED AT [place] [address] ([facility] (test code = [facility] Humberto [facility] 1538) [address] BASIC METABOLIC [id number] 06:33:00 Test Item Value Reference Range Interpretation [...] S NOT APPLICABLE FOR DIALYSIS PATIRUBÉN ULLOA [id number] 06:01:00 Test Item Value Reference Range Interpretation Comments PARTIAL THROMBOPLASTIN TIME 117.2 seconds 22.5-36.0 H (BEAKER) (test code = 760) PROTHROMBIN TIME/[id number] 05:56:00 Test Item Value Reference Range Interpretation [...] 0-1 PERCENT (BEAKER) (test code = 2808) POCT-GLUCOSE [id number] 21:37:00 Test Item Value Reference Range Interpretation Comments POC-GLUCOSE METER 121 mg/dL 70-110 H TESTED AT [facility] 6720 (BEAKER) (test code = [place] 15[address]) [address] POCT-GLUCOSE [id number] 19:01:00 Test Item Value Reference Range Interpretation Comments POC-GLUCOSE METER 191 mg/dL 70-110 H TESTED AT [place] [address] ([facility] (test code = FOSTER Paul [facility] 1538) [address] [id number] 18:31:00 Test Item Value Reference Range Interpretation Comments PARTIAL THROMBOPLASTIN TIME 86.2 seconds 22.5-36.0 H (BEAKER) (test code = 760) POCT-GLUCOSE [id number] 13:05:00 Test Item Value Reference Range Interpretation Comments POC-GLUCOSE METER 130 mg/dL 70-110 H TESTED AT [place] [address] ([facility]) (test code = FOSTER Paul [facility] 1538) [address] RAD, CHEST, 1 VIEW, NON [id number] 12:22:00Reason for exam:->pleural effusionsShould this be performed [...] MDReport Verified Date/Time: 12/07/2018 12:22:50 Reading Location: [address] Neuro Reading Room [id number] 11:39:00 Test Item Value Reference Range Interpretation Comments PARTIAL THROMBOPLASTIN TIME 100.1 seconds 22.5-36.0 H (BEAKER) (test code = 760) BODY FLUID CULTURE + GRAM [id number] 10:13:00 Test Item Value Reference Range Interpretation Comments CULTURE (BEAKER) (test No growth code = 1095) GRAM STAIN RESULT <1+ White blood cells (BEAKER) (test code = seen 1123) GRAM STAIN RESULT No organisms seen (BEAKER) (test code = 29954) POCT-GLUCOSE [id number] 08:51:00 Test Item Value Reference Range Interpretation Comments POC-GLUCOSE METER 90 mg/dL 70-110 TESTED AT [place] [address] ([facility] ([place] = [place] [address]38) BASIC METABOLIC [id number] 07:31:00 Test Item Value Reference Range Interpretation [...] S NOT APPLICABLE FOR DIALYSIS PATIEN TS. [id number] 05:21:00 Test Item Value Reference Range Interpretation Comments PARTIAL THROMBOPLASTIN TIME 104.0 seconds 22.5-36.0 H (BEAKER) (test code = 760) PROTHROMBIN TIME/[id number] 04:50:00 Test Item Value Reference Range Interpretation [...] 0-1 PERCENT (BEAKER) (test code = 2808) [id number] 20:33:00 Test Item Value Reference Range Interpretation Comments PARTIAL THROMBOPLASTIN TIME 87.6 seconds 22.5-36.0 H (BEAKER) (test code = 760) POCT-GLUCOSE [id number] 19:30:00 Test Item Value Reference Range Interpretation Comments POC-GLUCOSE METER 112 mg/dL 70-110 H TESTED AT [facility] 6720 (BEAKER) (test code = [place] 1538) [address] [id number] 13:55:00 Test Item Value Reference Range Interpretation Comments PARTIAL THROMBOPLASTIN TIME 85.9 seconds 22.5-36.0 H (BEAKER) (test code = 760) POCT-GLUCOSE [id number] 09:12:00 Test Item Value Reference Range Interpretation Comments POC-GLUCOSE METER 112 mg/dL 70-110 H TESTED AT [place] [address] ([facility] (test code = FOSTER Paul [facility] 1538) [address] BASIC METABOLIC [id number] 08:53:00 Test Item Value Reference Range Interpretation [...] S NOT APPLICABLE FOR DIALYSIS PATIEN TS. [id number] 06:04:00 Test Item Value Reference Range Interpretation Comments PARTIAL THROMBOPLASTIN TIME 105.5 seconds 22.5-36.0 H (BEAKER) (test code = 760) PROTHROMBIN TIME/[id number] 05:44:00 Test Item Value Reference Range Interpretation [...] (test code = 2801) CT, CHEST, WITHOUT [id number] 03:17:00FINAL REPORT EXAM: CT of the chest, [...] left pleural effusion with associated compressive atelectasis. Tbqkw-vb-wgtnstdc loculated right pleural effusion with pleural thickening [...] Taylor Verified Date/Time: 12/06/2018 03:17:03 Reading Location: [facility] C013Y CT Body Reading Room POCT-GLUCOSE [id number] 21:22:00 Test Item Value Reference Range Interpretation Comments POC-GLUCOSE METER 171 mg/dL 70-110 H TESTED AT [facility] 67 ([facility] (test code = MARIA GOSMAN [place] 1538) [address] POCT-GLUCOSE [id number] 17:58:00 Test Item Value Reference Range Interpretation Comments POC-GLUCOSE METER 128 mg/dL 70-110 H TESTED AT [place] [address] ([facility] (test code = [facility] H[place] 1538) [address] POCT-GLUCOSE [id number] 13:24:00 Test Item Value Reference Range Interpretation Comments POC-GLUCOSE METER 129 mg/dL 70-110 H TESTED AT [facility] 67 ([facility] (test code = [facility] [place] 1538) [address] LACTATE DEHYDROGENASE (LDH)2018-12-05 13:14:00 Test Item Value Reference Range Interpretation Comments LACTATE DEHYDROGENASE (BEAKER) (test 291 U/L 125-220 H code = 635) [id number] 13:10:00 Test Item Value Reference Range Interpretation Comments PARTIAL THROMBOPLASTIN TIME 91.7 seconds 22.5-36.0 H (BEAKER) (test code = 760) POCT-GLUCOSE [id number] 08:19:00 Test Item Value Reference Range Interpretation Comments POC-GLUCOSE METER 106 mg/dL 70-110 TESTED AT [facility] 6720 ([facility]) (test [facility] = [facility] [place] 1538) [address] BASIC METABOLIC [id number] 07:05:00 Test Item Value Reference Range Interpretation [...] S NOT APPLICABLE FOR DIALYSIS PATIEN TS. [id number] 06:32:00 Test Item Value Reference Range Interpretation [...] 2.5-3.5 for patients with mechanical heart valves.PROTHROMBIN TIME/[id number] 06:30:00 Test Item Value Reference Range Interpretation [...] 0-1 PERCENT (BEAKER) (test code = 2801) [id number] 00:40:00 Test Item Value Reference Range Interpretation Comments PARTIAL THROMBOPLASTIN TIME 63.1 seconds 22.5-36.0 H (BEAKER) (test code = 760) POCT-GLUCOSE [id number] 00:12:00 Test Item Value Reference Range Interpretation Comments POC-GLUCOSE METER 124 mg/dL 70-110 H TESTED AT [facility] 6720 (BEAKER) (test code = [place] 1538) [address] HEPATITIS B SURFACE [id number] 22:54:00 Test Item Value Reference Range Interpretation Comments HEPATITIS B SURFACE ANTIGEN (2) Nonreactive Nonreactive (BEAKER) (test code = 2585) For chronic HD patients, draw HBsAg with each admission then every 30 days.BODY FLUID CELL COUNT WITH [id number] 20:34:00 Test Item Value Reference Range Interpretation Comments APPEARANCE FLUID (BEAKER) (test Cloudy Clear A code = 510) COLOR FLUID (BEAKER) (test code Brown Colorless, Straw A = 511) RBC FLUID (BEAKER) (test code = 33941 /cu mm <=1 H 513) ADJUSTED WBC [...] code = 2873) LACTATE DEHYDROGENASE (LDH), BODY [id number] 19:43:00 Test Item Value Reference Range Interpretation [...] local 1% lidocaine anesthesia was administered.A 4 Georgian catheter was advanced into the largest pocket of the septated pleural effusion and 300 ccof bloody fluid was removed. The catheter was removed without immediate complication. Samples were sent for analysis. IMPRESSION:Uncomplicated ultrasound-guided right thoracentesis with 300 cc fluid removed. Signed: Raimundo Kimeport Verified Date/Time: 12/04/2018 18:00:50 Reading Location: [address] Ultrasound Reading Room RAD, CHEST, 1 VIEW, NON [id number] 17:23:00Reason for exam:->s/p right thoracentesisShould this be [...] Walter Verified Date/Time: 12/04/2018 17:23:06 Reading Location: [facility] Mammo Reading Room C. DIFFICILE GDH [id number] 10:01:00 Test Item Value Reference Range Interpretation Comments CDT TOXIN (test code Negative Negative = [id number]) CDT GDH ANTIGEN Positive Negative A C. difficile present but (test code = toxin not detec jayla. [id number]) Indicates colon ization with non-toxige ron strain or level of tox in below detectable leve ls. No need for enteri c isolation. Gary atment is rarely needed ( only when strong clinical suspicion for Clostridium difficile infection) Testing performed by [employer] Rapid Cassette Assay. For GDH, published sensitivity of the assay is 98.7% compared to cytotoxicity testing. For Toxin AB, published sensitivity is 87.8% and specificity 99.4% compared to cytotoxicity testing.Verification of kit performance was done by the [facility] Microbiology Lab prior to clinical use.[id number] 09:39:00 Test Item Value Reference Range Interpretation Comments PARTIAL THROMBOPLASTIN TIME 79.4 seconds 22.5-36.0 H (BEAKER) (test code = 760) OCCULT BLOOD, [id number] 05:59:00 Test Item Value Reference Range Interpretation Comments FECAL OCCULT BLOOD (BEAKER) (test Negative Negative code = 618) BASIC METABOLIC [id number] 02:50:00 Test Item Value Reference Range Interpretation [...] S NOT APPLICABLE FOR DIALYSIS PATIEN TS. [id number] 02:50:00 Test Item Value Reference Range Interpretation Comments PARTIAL THROMBOPLASTIN TIME 35.3 seconds 22.5-36.0 (BEAKER) (test code = 760) Prior to initiating heparinPROTHROMBIN TIME/[id number] 02:49:00 Test Item Value Reference Range Interpretation [...] acute neurological disease, and persistent tachyarrhythmia.HEPATIC FUNCTION [id number] 02:43:00 Test Item Value Reference Range Interpretation [...] 6-55 347) CBC W/PLT COUNT & AUTO [id number] 02:21:00 Test Item Value Reference Range Interpretation [...] 0-1 H PERCENT (BEAKER) (test code = 2803) POCT-GLUCOSE [id number] 21:22:00 Test Item Value Reference Range Interpretation Comments POC-GLUCOSE METER 192 mg/dL 70-110 H TESTED AT [facility] 6720 (BEAKER) (test code = [place] 1538) [address] TROPONIN [id number] 17:09:00 Test Item Value Reference Range Interpretation [...] and persistent tachyarrhythmia.RAD, CHEST, 1 VIEW, NON [id number] 15:36:00Reason for exam:->SHORTNESS OF BREATHShould this be performed at the bedside?->YesFINAL REPORT AP chest HISTORY: Shortness of breath. COMPARISON: 11/03/2017. IMPRESSION: Cardiomegaly. Mild interstitial edema. Right effusion and adjacent atelectasis. No pneumothorax. Signed: Mandy [facility] Verified Date/Time: 12/03/2018 15:36:19 Reading Location: [address] Radiology Reading Room TROPONIN [id number] 14:48:00 Test Item Value Reference Range Interpretation [...] (BEAKER) (test code = 700) BASIC METABOLIC [id number] 14:40:00 Test Item Value Reference Range Interpretation [...] S NOT APPLICABLE FOR DIALYSIS PATIEN TS. [id number] 14:34:00 Test Item Value Reference Range Interpretation [...] (test code = 2801) RAD, CHEST, 2 [id number] 15:24:00Reason for Exam:->chronic Diastolic heart FailureFINAL REPORT [...] MDReport Verified Date/Time: 11/03/2018 15:24:42 Reading Location: [address] Radiology Reading Room MISCELLANEOUS LAB [id number] 08:22:00 Test Item Value Reference Range Interpretation Comments SCAN RESULT (test code = 0352368) PROTHROMBIN TIME/[id number] 08:37:00 Test Item Value Reference Range Interpretation Comments PROTIME (BEAKER) (test code = 24.8 seconds 11.7-14.7 H 759) INR (BEAKER) (test code = 370) 2.2 <=5.9 RECOMMENDED COUMADIN/WARFARIN INR THERAPY RANGESSTANDARD DOSE: 2.0 - 3.0 Includes: PROPHYLAXIS forvenous thrombosis, systemic embolization; TREATMENT for venous thrombosis and/or pulmonary embolus.HIGH RISK: Target INR is 2.5-3.5 for patients with mechanical heart valves.POCT-GLUCOSE [id number] 08:10:00 Test Item Value Reference Range Interpretation Comments POC-GLUCOSE METER 89 mg/dL 70-110 TESTED AT [facility] 6720 (BEAKER) (test [place] = [place] [address] 1538) BASIC METABOLIC [id number] 06:29:00 Test Item Value Reference Range Interpretation [...] S NOT APPLICABLE FOR DIALYSIS PATIEN TS. [id number] 06:28:00 Test Item Value Reference Range Interpretation Comments MAGNESIUM (BEAKER) (test code = 1.8 mg/dL 1.6-2.6 627) [id number] 06:14:00 Test Item Value Reference Range Interpretation Comments PARTIAL THROMBOPLASTIN TIME 64.7 seconds 22.5-36.0 H (BEAKER) (test code = 760) CBC W/PLT COUNT & AUTO [id number] 05:58:00 Test Item Value Reference Range Interpretation [...] PERCENT (BEAKER) (test code = 2801) POCT-GLUCOSE [id number] 21:14:00 Test Item Value Reference Range Interpretation Comments POC-GLUCOSE METER 135 mg/dL 70-110 H TESTED AT [place] [address] ([facility]) (test code = FOSTER Paul [facility] 1538) [address] [id number] 19:36:00 Test Item Value Reference Range Interpretation Comments PARTIAL THROMBOPLASTIN TIME 88.6 seconds 22.5-36.0 H ([facility]) (test code = 760) POCT-GLUCOSE [id number] 18:27:00 Test Item Value Reference Range Interpretation Comments POC-GLUCOSE METER 88 mg/dL 70-110 TESTED AT [place] [address] ([facility]) ([facility] = [facility] [address] 1538) POCT-GLUCOSE [id number] 12:05:00 Test Item Value Reference Range Interpretation Comments POC-GLUCOSE METER 92 mg/dL 70-110 TESTED AT [place] [address] ([facility]) (test code = FOSTER Paul [facility] [address] 1538) [id number] 11:46:00 Test Item Value Reference Range Interpretation Comments PARTIAL THROMBOPLASTIN TIME 74.3 seconds 22.5-36.0 H ([facility]) (test code = 760) POCT-GLUCOSE [id number] 10:36:00 Test Item Value Reference Range Interpretation Comments POC-GLUCOSE METER 101 mg/dL 70-110 TESTED AT [place] [address] ([facility]) (test code = FOSTER Paul [facility] 1538) [address] POCT-GLUCOSE [id number] 07:10:00 Test Item Value Reference Range Interpretation Comments POC-GLUCOSE METER 92 mg/dL 70-110 TESTED AT [place] [address] ([facility]) (test code = FOSTER Paul [facility] [address] 1538) PROTHROMBIN [id number] 01:41:00 Test Item Value Reference Range Interpretation Comments PROTIME ([facility]) (test code = 22.8 seconds 11.7-14.7 H 759) INR ([facility]) (test code = 370) 2.0 <=5.9 RECOMMENDED COUMADIN/WARFARIN INR THERAPY RANGESSTANDARD DOSE: 2.0 - 3.0 Includes: PROPHYLAXIS forvenous thrombosis, systemic embolization; TREATMENT for venous thrombosis and/or pulmonary embolus.HIGH RISK: Target INR is 2.5-3.5 for patients with mechanical heart valves.While on warfarin.[id number] 01:41:00 Test Item Value Reference Range Interpretation Comments PARTIAL THROMBOPLASTIN TIME 52.3 seconds 22.5-36.0 H ([facility]) (test code = 760) While on warfarin.BASIC METABOLIC [id number] 01:37:00 Test Item Value Reference Range Interpretation [...] S NOT APPLICABLE FOR DIALYSIS PATIEN TS. [id number] 01:32:00 Test Item Value Reference Range Interpretation Comments MAGNESIUM (BEAKER) (test code = 1.8 mg/dL 1.6-2.6 627) CBC W/PLT COUNT & AUTO [id number] 01:18:00 Test Item Value Reference Range Interpretation [...] 0-1 PERCENT (BEAKER) (test code = 2801) [id number] 23:23:00 Test Item Value Reference Range Interpretation Comments PARTIAL THROMBOPLASTIN TIME 125.2 seconds 22.5-36.0 H ([facility]) (test code = 760) POCT-GLUCOSE [id number] 21:19:00 Test Item Value Reference Range Interpretation Comments POC-GLUCOSE METER 165 mg/dL 70-110 H TESTED AT [place] [address] ([facility]) (test [facility] = [facility] 1538) [address] POCT-GLUCOSE [id number] 18:34:00 Test Item Value Reference Range Interpretation Comments POC-GLUCOSE METER 92 mg/dL 70-110 TESTED AT [place] [address] ([facility]) (test code = [facility] [address] 1538) [id number] 17:17:00 Test Item Value Reference Range Interpretation Comments PARTIAL THROMBOPLASTIN TIME 75.2 seconds 22.5-36.0 H ([facility] [place]) (test code = 760) POCT-GLUCOSE [id number] 12:48:00 Test Item Value Reference Range Interpretation Comments POC-GLUCOSE METER 105 mg/dL 70-110 TESTED AT [place] [address] ([facility]) (test code = [facility] 1538) [address] RAD, CHEST, 1 VIEW, NON [id number] 11:00:00Reason for exam:->eval right effusionShould this be performed at the bedside?->YesFINAL REPORT Comparison: 08/15/2018 TECHNIQUE: Single view of the chest FINDINGS: Small to moderate right pleural effusion is stable. Small left pleural effusion may be slightly increased. Vascular congestion seen. No other significant change. Signed: Kyle Rome MDReport Verified Date/Time: 08/18/2018 11:00:36 Reading Location: [facility] Radiology Reading Room Electronicallysigned by: KYLE ROME M.D. on 08/18/2018 11:00 [id number] 09:48:00 Test Item Value Reference Range Interpretation Comments PARTIAL THROMBOPLASTIN TIME 48.8 seconds 22.5-36.0 H (BEAKER) (test code = 760) POCT-GLUCOSE [id number] 07:37:00 Test Item Value Reference Range Interpretation Comments POC-GLUCOSE METER 96 mg/dL 70-110 TESTED AT [facility] 6720 (BEAKER) (test code = [facility] [address] 1538) BASIC METABOLIC [id number] 02:24:00 Test Item Value Reference Range Interpretation [...] S NOT APPLICABLE FOR DIALYSIS PATIEN TS. [id number] 02:22:00 Test Item Value Reference Range Interpretation Comments MAGNESIUM (BEAKER) (test code = 1.7 mg/dL 1.6-2.6 627) [id number] 02:15:00 Test Item Value Reference Range Interpretation Comments PARTIAL THROMBOPLASTIN TIME 98.9 seconds 22.5-36.0 H (BEAKER) (test code = 760) PROTHROMBIN TIME/[id number] 02:13:00 Test Item Value Reference Range Interpretation [...] PERCENT (BEAKER) (test code = 2801) POCT-GLUCOSE [id number] 21:51:00 Test Item Value Reference Range Interpretation Comments POC-GLUCOSE METER 98 mg/dL 70-110 TESTED AT [place] [address] [facility] (test code = [facility] [address] 1538) [id number] 18:51:00 Test Item Value Reference Range Interpretation Comments PARTIAL THROMBOPLASTIN TIME 56.1 seconds 22.5-36.0 H (BEAKER) (test code = 760) [id number] 17:06:00 Test Item Value Reference Range Interpretation Comments PARTIAL THROMBOPLASTIN TIME 121.9 seconds 22.5-36.0 H (BEAKER) (test code = 760) POCT-GLUCOSE [id number] 16:46:00 Test Item Value Reference Range Interpretation Comments POC-GLUCOSE METER 135 mg/dL 70-110 H TESTED AT [place] [address] ([facility]) (test code = [facility] 1538) [address] POCT-GLUCOSE [id number] 13:28:00 Test Item Value Reference Range Interpretation Comments POC-GLUCOSE METER 96 mg/dL 70-110 TESTED AT [place] [address] ([facility]) (test code = [facility] [address] 1538) [id number] 09:15:00 Test Item Value Reference Range Interpretation Comments PARTIAL THROMBOPLASTIN TIME 58.1 seconds 22.5-36.0 H (BEAKER) (test code = 760) BASIC METABOLIC [id number] 07:31:00 Test Item Value Reference Range Interpretation [...] S NOT APPLICABLE FOR DIALYSIS PATIEN TS. [id number] 07:19:00 Test Item Value Reference Range Interpretation Comments PHOSPHORUS (BEAKER) (test code = 3.7 mg/dL 2.3-4.7 604) [id number] 07:19:00 Test Item Value Reference Range Interpretation Comments MAGNESIUM (BEAKER) (test code = 1.7 mg/dL 1.6-2.6 627) [id number] 07:07:00 Test Item Value Reference Range Interpretation Comments PARTIAL THROMBOPLASTIN TIME 124.4 seconds 22.5-36.0 H (BEAKER) (test code = 760) PROTHROMBIN TIME/[id number] 07:02:00 Test Item Value Reference Range Interpretation [...] 0-1 PERCENT (BEAKER) (test code = 2801) [id number] 23:01:00 Test Item Value Reference Range Interpretation Comments PARTIAL THROMBOPLASTIN TIME 46.5 seconds 22.5-36.0 H (AKER) (test code = 760) POCT-GLUCOSE [id number] 22:45:00 Test Item Value Reference Range Interpretation Comments POC-GLUCOSE METER 144 mg/dL 70-110 H TESTED AT [place] [address] ([facility]) (test code = [facility] 1538) [address] [id number] 15:02:00 Test Item Value Reference Range Interpretation Comments PARTIAL THROMBOPLASTIN TIME 56.1 seconds 22.5-36.0 H ([facility]) (test code = 760) POCT-GLUCOSE [id number] 14:39:00 Test Item Value Reference Range Interpretation Comments POC-GLUCOSE METER 189 mg/dL 70-110 H TESTED AT [place] [address] ([facility]) (test code = [facility] 1538) [address] HIV-1 PCR, [id number] 13:58:00 Test Item Value Reference Range Interpretation Comments HIV-1 NUMERIC RESULT ([facility]) (test 170 Cp/mL <20 H code = 2704) This test uses a Real-Time Polymerase Chain Reaction (RT-PCR) methodology to detect a highly conserved region of the HIV-1 gag gene and was performed using the ERICH AmpliPrep/ERICH TaqMan HIV-1 test kit version 2.0 ([employer]Reportable range for this assay is 20 - 10,000,000 copies per mL (1.3 - 7.0 Log copies/mL).[id number] 12:54:00 Test Item Value Reference Range Interpretation Comments PARTIAL THROMBOPLASTIN TIME 143.6 seconds 22.5-36.0 H (BEAKER) (test code = 760) [id number] 10:00:00Medical Cytology Report Case: [id number] Authorizing Provider: Alison Solano MD Collected: 08/13/2018 1805 Ordering Location: [address] Received: 08/14/2018 0938 Service Pathologist: Yamil Hamm MD Specimen: Pleural, Right RIGHT PLEURAL FLUID (CYTOSPINS AND CELL BLOCK): - NO MALIGNANT CELLS IDENTIFIED (SEE COMMENT) Signing Pathologist Direct Phone Line: [phone] signed by Yamil Hamm MD on 08/16/2018 [...] thoracentesis may be considered when fluid reaccumulates. 45816, 46847, 69848, 37330 x 2Left pleural effusion, history of AIDS, Kaposi's sarcoma, hepatitis C.RIGHT PLEURAL FLUID 300 mls bloody; 4 cytospins, cell blockCollected: [id number]: [id number] interpretation of this case included the use of immunohistochemistry or special stains. Please see the immunohistochemistry results in the COMMENT section. Immunohistochemistry technical testing was performed at [facility], Pathology Laboratory where it [...] as qualified toperform high complexity clinical laboratory testing.[facility], Department of Pathology, [address] [place] [address], [facility], [facility], [address] [place] [address], [facility], [facility] of [facility], [address] [place] [address], WVNN-GLUCOSE [id number] 08:29:00 Test Item Value Reference Range Interpretation Comments POC-GLUCOSE METER 96 mg/dL 70-110 TESTED AT [place] [address] (BEAKER) (test code = [facility] [address] 1538) BODY FLUID CULTURE + GRAM [id number] 07:54:00 Test Item Value Reference Range Interpretation Comments CULTURE (BEAKER) (test code No growth = 1095) GRAM STAIN RESULT (BEAKER) <1+ WBCs (test code = 1123) GRAM STAIN RESULT (BEAKER) No organisms seen (test code = 95025) BASIC METABOLIC [id number] 06:30:00 Test Item Value Reference Range Interpretation [...] S NOT APPLICABLE FOR DIALYSIS PATIEN TS. [id number] 06:26:00 Test Item Value Reference Range Interpretation Comments MAGNESIUM (BEAKER) (test code = 1.6 mg/dL 1.6-2.6 627) [id number] 05:48:00 Test Item Value Reference Range Interpretation Comments PARTIAL THROMBOPLASTIN TIME 80.3 seconds 22.5-36.0 H (BEAKER) (test code = 760) While on warfarin.PROTHROMBIN TIME/[id number] 05:46:00 Test Item Value Reference Range Interpretation [...] valves.While on warfarin.CBC W/PLT COUNT & AUTO [id number] 05:28:00 Test Item Value Reference Range Interpretation [...] 0-1 PERCENT (BEAKER) (test code = 2801) [id number] 22:09:00 Test Item Value Reference Range Interpretation Comments PARTIAL THROMBOPLASTIN TIME 61.5 seconds 22.5-36.0 H (BEAKER) (test code = 760) RAD, CHEST, 1 VIEW, NON [id number] 20:20:00Reason for exam:->eval right effusionShould this be [...] Anderson Verified Date/Time: 08/15/2018 20:20:24 Reading Location: [facility] Radiology Reading Room POCT-GLUCOSE [id number] 19:05:00 Test Item Value Reference Range Interpretation Comments POC-GLUCOSE METER 87 mg/dL 70-110 TESTED AT [place] [address] [facility] (test code = [facility] Humberto [facility] [address] 1538) POCT-GLUCOSE [id number] 13:12:00 Test Item Value Reference Range Interpretation Comments POC-GLUCOSE METER 162 mg/dL 70-110 H TESTED AT [place] [address] [facility] (test code = [facility] 1538) [address] [id number] 12:48:00 Test Item Value Reference Range Interpretation Comments PARTIAL THROMBOPLASTIN TIME 89.1 seconds 22.5-36.0 H (BEAKER) (test code = 760) POCT-GLUCOSE [id number] 09:58:00 Test Item Value Reference Range Interpretation Comments POC-GLUCOSE METER 229 mg/dL 70-110 H TESTED AT [facility] 6720 (BEAKER) (test code = [facility] 1538) [address] BASIC METABOLIC [id number] 05:40:00 Test Item Value Reference Range Interpretation [...] PATIEN TS. CBC W/PLT COUNT & AUTO [id number] 05:38:00 Test Item Value Reference Range Interpretation [...] 0-1 PERCENT (BEAKER) (test code = 2801) [id number] 05:28:00 Test Item Value Reference Range Interpretation Comments MAGNESIUM (BEAKER) (test code = 1.8 mg/dL 1.6-2.6 627) [id number] 04:47:00 Test Item Value Reference Range Interpretation Comments PARTIAL THROMBOPLASTIN TIME 60.9 seconds 22.5-36.0 H (BEAKER) (test code = 760) PROTHROMBIN [id number] 04:46:00 Test Item Value Reference Range Interpretation Comments PROTIME (BEAKER) (test code = 17.9 seconds 11.7-14.7 H 759) INR (BEAKER) (test code = 370) 1.5 <=5.9 RECOMMENDED COUMADIN/WARFARIN INR THERAPY RANGESSTANDARD DOSE: 2.0 - 3.0 Includes: PROPHYLAXIS forvenous thrombosis, systemic embolization; TREATMENT for venous thrombosis and/or pulmonary embolus.HIGH RISK: Target INR is 2.5-3.5 for patients with mechanical heart valves.[id number] 20:56:00 Test Item Value Reference Range Interpretation Comments PARTIAL THROMBOPLASTIN TIME 52.1 seconds 22.5-36.0 H (BEAKER) (test code = 760) CT, CHEST, WITHOUT [id number] 19:06:00S/p fall in Nov--> right effusion, tapped [...] Tapia Verified Date/Time: 08/14/2018 19:06:09 Reading Location: [address] [facility] 12:40:00 Test Item Value Reference Range Interpretation Comments PARTIAL THROMBOPLASTIN TIME 48.4 seconds 22.5-36.0 H (BEAKER) (test code = 760) CD4 T CELL [id number] 11:15:00 Test Item Value Reference Range Interpretation [...] 107-698 L (BEAKER) (test code = 3491) [id number] 10:48:00 Test Item Value Reference Range Interpretation Comments PHOSPHORUS (BEAKER) (test code = 5.2 mg/dL 2.3-4.7 H 604) BASIC METABOLIC [id number] 07:13:00 Test Item Value Reference Range Interpretation [...] S NOT APPLICABLE FOR DIALYSIS PATIEN TS. [id number] 07:11:00 Test Item Value Reference Range Interpretation Comments MAGNESIUM (BEAKER) (test code = 1.8 mg/dL 1.6-2.6 627) [id number] 07:00:00 Test Item Value Reference Range Interpretation Comments PARTIAL THROMBOPLASTIN TIME 59.2 seconds 22.5-36.0 H (BEAKER) (test code = 760) PROTHROMBIN TIME/[id number] 06:59:00 Test Item Value Reference Range Interpretation [...] 0-1 PERCENT (BEAKER) (test code = 2801) [id number] 00:30:00 Test Item Value Reference Range Interpretation Comments PARTIAL THROMBOPLASTIN TIME 56.7 seconds 22.5-36.0 H (BEAKER) (test code = 760) BODY FLUID CELL COUNT WITH [id number] 19:28:00 Test Item Value Reference Range Interpretation Comments APPEARANCE FLUID (BEAKER) (test Cloudy Clear A code = 510) COLOR FLUID (BEAKER) (test code Red Colorless, Straw A = 511) RBC FLUID (BEAKER) (test code = 78819 /cu mm <=1 H 513) ADJUSTED WBC [...] Tube (test code = 2873) ALBUMIN, BODY [id number] 18:40:00 Test Item Value Reference Range Interpretation Comments ALBUMIN FLUID (BEAKER) (test code = 2.1 gm/dL 501) Reference Range: No Normals Assay performance has not been validated for this type of specimen.LACTATE DEHYDROGENASE (LDH), BODY [id number] 18:40:00 Test Item Value Reference Range Interpretation [...] 125-220 H code = 635) HEPATIC FUNCTION [id number] 18:40:00 Test Item Value Reference Range Interpretation [...] 6-55 347) RAD, CHEST, 1 VIEW, NON [id number] 17:56:00Reason for exam:->post Right thoracentesisShould this be [...] Verified Date/Time: 08/13/2018 17:56:18 Reading Location: [facility] C013W Consult Reading Room U/S, [id number] 16:22:00Reason for exam:->shortness of breath, recurrent right pleural effusionShould this be performed at the bedside?->NoFINAL REPORT Ultrasound guided right thoracentesis, 08/13/2018. Clinical History: Right pleural effusion. Modality: Ultrasound. Sedation: None. Developer Analyst: Gini. Kennel Helper: None. Estimated Blood Loss: 1cc Specimen: 1600 [...] Musa Verified Date/Time: 08/13/2018 16:22:16 Reading Location: [facility] P006J Ultrasound Reading Room [id number] 07:18:00 Test Item Value Reference Range Interpretation Comments MAGNESIUM (BEAKER) (test code = 2.0 mg/dL 1.6-2.6 627) BASIC METABOLIC [id number] 07:18:00 Test Item Value Reference Range Interpretation [...] PATIEN TS. RAD, CHEST, 1 VIEW, NON [id number] 06:25:00Reason for exam:->SOBShould this be performed at [...] Taylor Verified Date/Time: 08/13/2018 06:25:21 Reading Location: [facility] C0[facility] ading Room [id number] 05:49:00 Test Item Value Reference Range Interpretation Comments PARTIAL THROMBOPLASTIN TIME 42.0 seconds 22.5-36.0 H (BEAKER) (test code = 760) PROTHROMBIN TIME/[id number] 05:48:00 Test Item Value Reference Range Interpretation [...] PERCENT (BEAKER) (test code = 2801) POCT-GLUCOSE [id number] 18:30:00 Test Item Value Reference Range Interpretation Comments POC-GLUCOSE METER 80 mg/dL 70-110 TESTED AT [facility] 6720 (BEAKER) (test code = [place] [address] 1538) RAD, CHEST, 1 VIEW, NON [id number] 13:46:00Reason for exam:->evaluate pleural effusionShould this be performed at the bedside?->YesFINAL REPORT Comparison: 08/02/2018 TECHNIQUE: Single view of the chest FINDINGS Bilateral interstitial and airspace opacities are stable. Bilateral pleural effusions seen, right greater than left. No gross new lung parenchymal changes. Post surgical changes in the mediastinum. IMPRESSION: No significant interval change. Signed: Kyle Romeepdamion Verified Date/Time: 08/06/2018 13:46:20 Reading Location: [facility] Radiology Reading Room [id number] 09:33:00 Test Item Value Reference Range Interpretation Comments PARTIAL THROMBOPLASTIN TIME 113.6 seconds 22.5-36.0 H (BEAKER) (test code = 760) [id number] 06:48:00 Test Item Value Reference Range Interpretation [...] heart valves.While on warfarin.While on warfarin.BASIC METABOLIC [id number] 06:45:00 Test Item Value Reference Range Interpretation [...] NOT APPLICABLE FOR DIALYSIS PATIEN TS. PROTHROMBIN TIME/[id number] 06:43:00 Test Item Value Reference Range Interpretation [...] WBC 0-0 (BEAKER) (test code = 413) [id number] 20:40:00 Test Item Value Reference Range Interpretation Comments PARTIAL THROMBOPLASTIN TIME 81.7 seconds 22.5-36.0 H (BEAKER) (test code = 760) [id number] 14:05:00 Test Item Value Reference Range Interpretation Comments PARTIAL THROMBOPLASTIN TIME 91.5 seconds 22.5-36.0 H (BEAKER) (test code = 760) BASIC METABOLIC [id number] 07:02:00 Test Item Value Reference Range Interpretation [...] S NOT APPLICABLE FOR DIALYSIS PATIEN TS. [id number] 06:47:00 Test Item Value Reference Range Interpretation [...] valves.Ok to add onOk to add onPROTHROMBIN TIME/[id number] 06:46:00 Test Item Value Reference Range Interpretation [...] 0-1 PERCENT (BEAKER) (test code = 2801) [id number] 16:22:00 Test Item Value Reference Range Interpretation Comments PARTIAL THROMBOPLASTIN TIME 76.1 seconds 22.5-36.0 H (BEAKER) (test code = 760) BODY FLUID CULTURE + GRAM [id number] 09:10:00 Test Item Value Reference Range Interpretation Comments CULTURE (BEAKER) (test code No growth = 1095) GRAM STAIN RESULT (BEAKER) <1+ WBCs (test code = 1123) GRAM STAIN RESULT (BEAKER) No organisms seen (test code = 45282) CBC W/PLT COUNT & AUTO [id number] 07:23:00 Test Item Value Reference Range Interpretation [...] (BEAKER) (test code = 413) BASIC METABOLIC [id number] 07:05:00 Test Item Value Reference Range Interpretation [...] S NOT APPLICABLE FOR DIALYSIS PATIEN TS. [id number] 06:53:00 Test Item Value Reference Range Interpretation [...] heart valves.Ok to add onOk to add [id number] 06:53:00 Test Item Value Reference Range Interpretation Comments PARTIAL THROMBOPLASTIN TIME 70.3 seconds 22.5-36.0 H (BEAKER) (test code = 760) PROTHROMBIN TIME/[id number] 06:52:00 Test Item Value Reference Range Interpretation Comments PROTIME (BEAKER) (test code = 17.5 seconds 11.7-14.7 H 759) INR (BEAKER) (test code = 370) 1.4 <=5.9 RECOMMENDED COUMADIN/WARFARIN INR THERAPY RANGESSTANDARD DOSE: 2.0 - 3.0 Includes: PROPHYLAXIS forvenous thrombosis, systemic embolization; TREATMENT for venous thrombosis and/or pulmonary embolus.HIGH RISK: Target INR is 2.5-3.5 for patients with mechanical heart valves.PROTHROMBIN TIME/[id number] 06:51:00 Test Item Value Reference Range Interpretation Comments PROTIME (BEAKER) (test code = 17.7 seconds 11.7-14.7 H 759) INR (BEAKER) (test code = 370) 1.5 <=5.9 RECOMMENDED COUMADIN/WARFARIN INR THERAPY RANGESSTANDARD DOSE: 2.0 - 3.0 Includes: PROPHYLAXIS forvenous thrombosis, systemic embolization; TREATMENT for venous thrombosis and/or pulmonary embolus.HIGH RISK: Target INR is 2.5-3.5 for patients with mechanical heart valves.While on warfarin.[id number] 22:47:00 Test Item Value Reference Range Interpretation Comments PARTIAL THROMBOPLASTIN TIME 73.6 seconds 22.5-36.0 H (BEAKER) (test code = 760) [id number] 13:08:00 Test Item Value Reference Range Interpretation Comments PARTIAL THROMBOPLASTIN TIME 49.2 seconds 22.5-36.0 H (BEAKER) (test code = 760) BASIC METABOLIC [id number] 06:56:00 Test Item Value Reference Range Interpretation [...] S NOT APPLICABLE FOR DIALYSIS PATIEN TS. [id number] 06:56:00 Test Item Value Reference Range Interpretation Comments PARTIAL THROMBOPLASTIN TIME 67.5 seconds 22.5-36.0 H (BEAKER) (test code = 760) [id number] 06:45:00 Test Item Value Reference Range Interpretation [...] valves.Ok to add onOk to add onPROTHROMBIN TIME/[id number] 06:44:00 Test Item Value Reference Range Interpretation [...] /100 WBC 0-0 (test code = 413) [id number] 02:18:00 Test Item Value Reference Range Interpretation Comments PARTIAL THROMBOPLASTIN TIME 67.1 seconds 22.5-36.0 H (AKER) (test code = 760) [id number] 18:56:00 Test Item Value Reference Range Interpretation Comments PARTIAL THROMBOPLASTIN TIME 72.5 seconds 22.5-36.0 H (AKER) (test code = 760) POCT-GLUCOSE [id number] 13:08:00 Test Item Value Reference Range Interpretation Comments POC-GLUCOSE METER 121 mg/dL 70-110 H TESTED AT [facility] 6720 ([facility]) (test code = [place] 1538) [address] [id number] 12:07:00 Test Item Value Reference Range Interpretation Comments PARTIAL THROMBOPLASTIN TIME 50.7 seconds 22.5-36.0 H (AKER) (test code = 760) Ok to add onPROTHROMBIN TIME/[id number] 12:05:00 Test Item Value Reference Range Interpretation Comments PROTIME (BEAKER) (test code = 16.7 seconds 11.7-14.7 H 759) INR (AKER) (test code = 370) 1.4 <=5.9 RECOMMENDED [...] = 413) RAD, CHEST, 1 VIEW, NON [id number] 11:24:00Reason for exam:->pleural effusionShould this be performed at the bedside?->YesFINAL REPORT AP chest HISTORY: Pleural effusion COMPARISON: 08/01/2018 IMPRESS ION:Intact skeleton. Cardiomegaly. Moderate interstitial edema. Moderate right and small left effusions. No pneumothorax. Signed: Mandy Chairez Verified Date/Time: 08/02/2018 11:24:33 Reading Location: [address] Consult Reading Room BASIC METABOLIC [id number] 02:55:00 Test Item Value Reference Range Interpretation [...] S NOT APPLICABLE FOR DIALYSIS PATIRUBÉN JEAN. [id number] 02:39:00 Test Item Value Reference Range Interpretation Comments PARTIAL THROMBOPLASTIN TIME 51.6 seconds 22.5-36.0 H (BEAKER) (test code = 760) CBC W/PLT COUNT & AUTO [id number] 02:30:00 Test Item Value Reference Range Interpretation [...] = 2801) BODY FLUID CELL COUNT WITH [id number] 21:13:00 Test Item Value Reference Range Interpretation Comments APPEARANCE FLUID (BEAKER) (test Bloody Clear A code = 510) COLOR FLUID (BEAKER) (test code Sunil Colorless, Straw A = 511) RBC FLUID (BEAKER) (test code = 59413 /cu mm <=1 H 513) ADJUSTED WBC [...] Tube (test code = 2873) ALBUMIN, BODY [id number] 20:00:00 Test Item Value Reference Range Interpretation Comments ALBUMIN FLUID (BEAKER) (test code = 2.1 gm/dL 501) Reference Range: No Normals Assay performance has not been validated for this type of specimen.LACTATE DEHYDROGENASE (LDH), BODY [id number] 20:00:00 Test Item Value Reference Range Interpretation [...] of specimen.RAD, CHEST, PA OR AP, 1 [id number] 17:08:00Ultrasound Room 1Reason for exam:->s/p Right sided [...] Vailepdamion Verified Date/Time: 08/01/2018 17:08:13 Reading Location: [facility] Radiology Reading Room U/S, [id number] 17:03:00 Laterality?->RightReason for exam:->large pleural effusionFINAL REPORT HISTORY: Right pleural effusion Following informed written consent, the patient's right posterior chest wall was prepped and draped in the usual sterile manner. 2% lidocaine was given locally for anesthesia. No conscious sedation was administered. Vital signs were monitored and remained stable. Using ultrasound guidance and a 5 Georgian angiocatheter, access was gain ed to the [...] Seymour Verified Date/Time: 08/01/2018 17:03:15 Reading Location: [address] Ultrasound Reading Room RAD, CHEST, 1 VIEW, NON [id number] 12:40:00Reason for exam:->pleural effusion; shortness of breathShould [...] MDReport Verified Date/Time: 08/01/2018 12:40:42 Reading Location: [facility] Radiology Reading Room APTT 2018-08-01 11:33:00 Test Item Value Reference Range Interpretation Comments PARTIAL THROMBOPLASTIN TIME 118.1 seconds 22.5-36.0 H (BEAKER) (test code = 760) BASIC METABOLIC [id number] 02:07:00 Test Item Value Reference Range Interpretation [...] S NOT APPLICABLE FOR DIALYSIS PATIEN TS. [id number] 01:55:00 Test Item Value Reference Range Interpretation [...] is 2.5-3.5 for patients with mechanical heart valves.[id number] 01:55:00 Test Item Value Reference Range Interpretation Comments PARTIAL THROMBOPLASTIN TIME 96.8 seconds 22.5-36.0 H (BEAKER) (test code = 760) CBC W/PLT COUNT & AUTO [id number] 01:38:00 Test Item Value Reference Range Interpretation [...] 0-1 PERCENT (BEAKER) (test code = 2801) [id number] 18:58:00 Test Item Value Reference Range Interpretation Comments PARTIAL THROMBOPLASTIN TIME 61.7 seconds 22.5-36.0 H (BEAKER) (test code = 760) [id number] 09:22:00 Test Item Value Reference Range Interpretation Comments PARTIAL THROMBOPLASTIN TIME 61.5 seconds 22.5-36.0 H (BEAKER) (test code = 760) BASIC METABOLIC [id number] 02:14:00 Test Item Value Reference Range Interpretation [...] S NOT APPLICABLE FOR DIALYSIS PATIEN TS. [id number] 01:43:00 Test Item Value Reference Range Interpretation [...] is 2.5-3.5 for patients with mechanical heart valves.[id number] 01:43:00 Test Item Value Reference Range Interpretation Comments PARTIAL THROMBOPLASTIN TIME 62.7 seconds 22.5-36.0 H (BEAKER) (test code = 760) CBC W/PLT COUNT & AUTO [id number] 01:32:00 Test Item Value Reference Range Interpretation [...] 0-1 PERCENT (BEAKER) (test code = 2801) [id number] 18:38:00 Test Item Value Reference Range Interpretation Comments PARTIAL THROMBOPLASTIN TIME 38.9 seconds 22.5-36.0 H (BEAKER) (test code = 760) Prior to initiating heparinPLATELET [id number] 18:17:00 Test Item Value Reference Range Interpretation Comments PLATELET COUNT (BEAKER) (test 115 K/CU MM 150-450 L code = 756) RAD, CHEST, 2 [id number] 18:05:00Reason for exam:->sob and pleural effusionFINAL REPORT [...] [place] Verified Date/Time: 07/30/2018 18:05:46Reading Location: [facility] [id number] Consult Reading Room C METABOLIC [id number] 05:26:00 Test Item Value Reference Range Interpretation [...] S NOT APPLICABLE FOR DIALYSIS PATIEN TS. PT/[id number] 05:25:00 Test Item Value Reference Range Interpretation [...] 2.5-3.5 for patients with mechanical heart valves.PROTHROMBIN [id number] 05:24:00 Test Item Value Reference Range Interpretation [...] (test code = 2801) HEPATITIS B SURFACE [id number] 12:09:00 Test Item Value Reference Range Interpretation Comments HEPATITIS B SURFACE ANTIGEN (2) Nonreactive Nonreactive (BEAKER) (test code = 2585) POCT-GLUCOSE [id number] 07:50:00 Test Item Value Reference Range Interpretation Comments POC-GLUCOSE METER 93 mg/dL 70-110 TESTED AT [facility] 6720 (BEAKER) (test code = [place] [address] 1538) [id number] 04:59:00 Test Item Value Reference Range Interpretation [...] for patients with mechanical heart valves.BASIC METABOLIC [id number] 04:59:00 Test Item Value Reference Range Interpretation [...] PATIEN TS. CBC W/PLT COUNT & AUTO [id number] 04:51:00 Test Item Value Reference Range Interpretation [...] (test code = 2801) AFB CULTURE + [id number] 16:13:00 Test Item Value Reference Range Interpretation Comments CULTURE (BEAKER) (test No acid-fast bacilli code = 1095) isolated in 42 days AFB SMEAR (BEAKER) No acid fast bacilli (test code = 994) seen AFB CULTURE + [id number] 16:13:00 Test Item Value Reference Range Interpretation Comments CULTURE (BEAKER) (test No acid-fast bacilli code = 1095) isolated in 42 days AFB SMEAR (BEAKER) No acid fast bacilli (test code = 994) seen FUNGUS CULTURE + [id number] 07:13:00 Test Item Value Reference Range Interpretation Comments CULTURE (BEAKER) (test No fungus isolated in code = 1095) 28 days FUNGUS SMEAR (BEAKER) No fungi seen (test code = 1406) FUNGUS CULTURE + [id number] 07:13:00 Test Item Value Reference Range Interpretation Comments CULTURE (BEAKER) (test No fungus isolated in code = 1095) 28 days FUNGUS SMEAR (BEAKER) No fungi seen (test code = 1406) TISSUE [id number] 19:17:00Surgical Pathology Report Case: [id number] Authorizing Provider: Juliana Martinez MD Collected: 05/23/2018824 Ordering Location: [facility] Received: 05/23/2018 0923 SERVICES Pathologist: Brigida Parks MD Specimen: SoftTissue, Other, LEFT GROIN - TISSUE BIOPSY SKIN AND SOFT TISSUE,GROIN,LEFT, BIOPSY: - ABSCESSES, GRANULOMAS AND CHRONIC INFLAMMATION - NEGATIVE FOR DYSPLASIA OR MALIGNANCY - AFB AND GMS STAINS ARE NEGATIVE (SEE COMMENT) Signing Pathologist Direct Phone Line: [phone] signed by Brigida Parks MD on 06/02/2018 at 7:17 PMCorrelation with culture studies is recommended.32485Vexftkztl abscess groinLeft groin tissue biopsyReceived fresh labeled "soft tissue, other", description "left groin tissue biopsy" are two dark-porter, wrinkled,hair- bearing strips of skin measuring 1.5 and 2.6 cm in length, 0.3 cm in diameter and excised to a depth of 0.3 cm.Sectioning reveals no discrete masses.The specimen is entirely submitted in cassettesA1. DB/ewPOCT-GLUCOSE [id number] 08:51:00 Test Item Value Reference Range Interpretation Comments POC-GLUCOSE METER 101 mg/dL 70-110 TESTED AT [facility] 6720 [facility] (test code = [place] [facility] 1538) [address] CBC W/PLT COUNT & AUTO [id number] 06:01:00 Test Item Value Reference Range Interpretation [...] PERCENT (BEAKER) (test code = 2801) PROTHROMBIN [id number] 05:51:00 Test Item Value Reference Range Interpretation Comments PROTIME (BEAKER) (test code = 25.9 seconds 11.7-14.7 H 759) INR (BEAKER) (test code = 370) 2.4 <=5.9 RECOMMENDED COUMADIN/WARFARIN INR THERAPY RANGESSTANDARD DOSE: 2.0 - 3.0 Includes: PROPHYLAXIS forvenous thrombosis, systemic embolization; TREATMENT for venous thrombosis and/or pulmonary embolus.HIGH RISK: Target INR is 2.5-3.5 for patients with mechanical heart valves.BASIC METABOLIC [id number] 05:46:00 Test Item Value Reference Range Interpretation [...] NOT APPLICABLE FOR DIALYSIS PATIEN TS. POCT-GLUCOSE [id number] 20:34:00 Test Item Value Reference Range Interpretation Comments POC-GLUCOSE METER 261 mg/dL 70-110 H TESTED AT [place] [address] ([facility]) (test code = [facility] 1538) [address] POCT-GLUCOSE [id number] 18:12:00 Test Item Value Reference Range Interpretation Comments POC-GLUCOSE METER 139 mg/dL 70-110 H TESTED AT [place] [address] ([facility]) (test code = [facility] 1538) [address] POCT-GLUCOSE [id number] 11:51:00 Test Item Value Reference Range Interpretation Comments POC-GLUCOSE METER 147 mg/dL 70-110 H TESTED AT [place] [address] ([facility]) (test code = [facility] 1538) [address] POCT-GLUCOSE [id number] 08:42:00 Test Item Value Reference Range Interpretation Comments POC-GLUCOSE METER 104 mg/dL 70-110 TESTED AT [place] [address] ([facility]) (test code = [facility] 1538) [address] CBC W/PLT COUNT & AUTO [id number] 06:56:00 Test Item Value Reference Range Interpretation Comments WHITE BLOOD CELL COUNT ([facility]) 8.0 K/ L 3.5-10.5 (test code = 775) RED BLOOD CELL COUNT ([facility]) 3.40 M/ L 4.63-6.08 L (test code = 761) HEMOGLOBIN (BEAKER) (test code = 10.2 GM/DL 13.7-17.5 L 410) HEMATOCRIT ([facility]) (test code = 32.0 % 40.1-51.0 L 411) MEAN CORPUSCULAR VOLUME ([facility]) 94.1 fL 79.0-92.2 H (test code = 753) MEAN CORPUSCULAR HEMOGLOBIN 30.0 pg 25.7-32.2 (AKER) (test code = 751) [...] (BEAKER) (test code = 2801) BASIC METABOLIC [id number] 06:49:00 Test Item Value Reference Range Interpretation [...] NOT APPLICABLE FOR DIALYSIS PATIEN TS. PROTHROMBIN [id number] 06:46:00 Test Item Value Reference Range Interpretation Comments PROTIME ([employer]) (test code = 26.9 seconds 11.7-14.7 H 759) INR (BEAKER) (test code = 370) 2.5 <=5.9 RECOMMENDED COUMADIN/WARFARIN INR THERAPY RANGESSTANDARD DOSE: 2.0 - 3.0 Includes: PROPHYLAXIS forvenous thrombosis, systemic embolization; TREATMENT for venous thrombosis and/or pulmonary embolus.HIGH RISK: Target INR is 2.5-3.5 for patients with mechanical heart valves.ANAEROBIC [id number] 00:38:00 Test Item Value Reference Range Interpretation Comments CULTURE ([employer]) (test No anaerobes isolated code = 1095) ANAEROBIC [id number] 00:38:00 Test Item Value Reference Range Interpretation Comments CULTURE ([employer]) (test No anaerobes isolated code = 1095) POCT-GLUCOSE [id number] 20:43:00 Test Item Value Reference Range Interpretation Comments POC-GLUCOSE METER 124 mg/dL 70-110 H TESTED AT [place] [address] ([employer]) (test code = [place] [facility] 1538) [address] POCT-GLUCOSE [id number] 17:17:00 Test Item Value Reference Range Interpretation Comments POC-GLUCOSE METER 190 mg/dL 70-110 H TESTED AT [place] [address] ([employer]) (test code = [facility] Humberto [facility] 1538) [address] POCT-GLUCOSE [id number] 11:54:00 Test Item Value Reference Range Interpretation Comments POC-GLUCOSE METER 195 mg/dL 70-110 H TESTED AT [place] [address] ([employer]) (test code = [facility] Humberto [facility] 1538) [address] C. DIFFICILE GDH [id number] 11:16:00 Test Item Value Reference Range Interpretation Comments CDT TOXIN (test code Negative Negative = [id number]) CDT GDH ANTIGEN (test Negative Negative No ind ication of code = [id number]) Clostridi um difficile infection and n o colonization. Discontinue ent kenrick isolation and t herapy. Testing performed by [employer] Rapid Cassette Assay. For GDH, published sensitivity of the assay is 98.7% compared to cytotoxicity testing. For Toxin AB, published sensitivity is 87.8% and specificity 99.4% compared to cytotoxicity testing.Verification of kit performance was done by the [facility] Microbiology Lab prior to clinical use.SURGICALLY OBTAINED CULTURE + GRAM [id number] 09:22:00 Test Item Value Reference Interpretation Comments [...] No organisms seen (BEAKER) (test code = 858980) SURGICALLY OBTAINED CULTURE + GRAM [id number] 09:20:00 Test Item Value Reference Range Interpretation Comments CULTURE (BEAKER) (test code No growth = 1095) GRAM STAIN RESULT (BEAKER) 4+ WBCs (test code = 1123) GRAM STAIN RESULT (BEAKER) No organisms seen (test code = 31174) POCT-GLUCOSE [id number] 08:21:00 Test Item Value Reference Range Interpretation Comments POC-GLUCOSE METER 101 mg/dL 70-110 TESTED AT [facility] 6720 (BEAKER) (test code = [place] 1538) [address] BASIC METABOLIC [id number] 07:57:00 Test Item Value Reference Range Interpretation [...] NOT APPLICABLE FOR DIALYSIS PATIEN TS. PROTHROMBIN [id number] 06:36:00 Test Item Value Reference Range Interpretation [...] PERCENT (BEAKER) (test code = 2801) POCT-GLUCOSE [id number] 21:40:00 Test Item Value Reference Range Interpretation Comments POC-GLUCOSE METER 176 mg/dL 70-110 H TESTED AT [place] [address] ([facility]) (test code = [place] [facility] 1538) [address] POCT-GLUCOSE [id number] 16:07:00 Test Item Value Reference Range Interpretation Comments POC-GLUCOSE METER 120 mg/dL 70-110 H TESTED AT [place] [address] ([facility]) (test code = [place] [facility] 1538) [address] POCT-GLUCOSE [id number] 08:31:00 Test Item Value Reference Range Interpretation Comments POC-GLUCOSE METER 119 mg/dL 70-110 H TESTED AT [place] [address] ([facility]) (test code = [place] 1538) [address] BASIC METABOLIC [id number] 08:19:00 Test Item Value Reference Range Interpretation [...] APPLICABLE FOR DIALYSIS PATIEN TS. VANCOMYCIN LEVEL, [id number] 08:16:00 Test Item Value Reference Range Interpretation Comments VANCOMYCIN RANDOM (BEAKER) (test 17.6 ug/mL code = 523) Reference Range: No NormalsPROTHROMBIN [id number] 07:21:00 Test Item Value Reference Range Interpretation [...] PERCENT (BEAKER) (test code = 2801) BLOOD [id number] 06:00:00 Test Item Value Reference Range Interpretation Comments CULTURE (BEAKER) (test No growth in 5 days code = 1095) BLOOD [id number] 00:00:00 Test Item Value Reference Range Interpretation Comments CULTURE (BEAKER) (test No growth in 5 days code = 1095) POCT-GLUCOSE [id number] 22:05:00 Test Item Value Reference Range Interpretation Comments POC-GLUCOSE METER 169 mg/dL 70-110 H TESTED AT [place] [address] (BEAKER) (test code = [facility] Humberto [facility] 1538) [address] POCT-GLUCOSE [id number] 18:20:00 Test Item Value Reference Range Interpretation Comments POC-GLUCOSE METER 110 mg/dL 70-110 TESTED AT [place] [address] (BEAKER) (test code = [facility] 1538) [address] POCT-GLUCOSE [id number] 17:17:00 Test Item Value Reference Range Interpretation Comments POC-GLUCOSE METER 99 mg/dL 70-110 TESTED AT [place] [address] (BEAKER) (test code = [facility] [address] 1538) SPIN/CONCENTRATION [id number] 14:49:00 Test Item Value Reference Range Interpretation Comments CONCENTRATION CHARGED (BEAKER) (test Done code = 2657) SPIN/CONCENTRATION [id number] 14:49:00 Test Item Value Reference Range Interpretation Comments CONCENTRATION CHARGED (BEAKER) (test Done code = 2657) POCT-GLUCOSE [id number] 12:13:00 Test Item Value Reference Range Interpretation Comments POC-GLUCOSE METER 188 mg/dL 70-110 H TESTED AT [place] [address] (BEAKER) (test code = [facility] 1538) [address] BASIC METABOLIC [id number] 09:56:00 Test Item Value Reference Range Interpretation [...] NOT APPLICABLE FOR DIALYSIS PATIEN TS. POCT-GLUCOSE [id number] 07:45:00 Test Item Value Reference Range Interpretation Comments POC-GLUCOSE METER 108 mg/dL 70-110 TESTED AT [facility] 6720 (BEAKER) (test code = [place] 1538) [address] CBC W/PLT COUNT & AUTO [id number] 07:00:00 Test Item Value Reference Range Interpretation [...] PERCENT (BEAKER) (test code = 2801) PROTHROMBIN [id number] 06:47:00 Test Item Value Reference Range Interpretation Comments PROTIME (BEAKER) (test code = 20.7 seconds 11.7-14.7 H 759) INR (BEAKER) (test code = 370) 1.8 <=5.9 RECOMMENDED COUMADIN/WARFARIN INR THERAPY RANGESSTANDARD DOSE: 2.0 - 3.0 Includes: PROPHYLAXIS forvenous thrombosis, systemic embolization; TREATMENT for venous thrombosis and/or pulmonary embolus.HIGH RISK: Target INR is 2.5-3.5 for patients with mechanical heart valves.POCT-GLUCOSE [id number] 20:42:00 Test Item Value Reference Range Interpretation Comments POC-GLUCOSE METER 134 mg/dL 70-110 H TESTED AT [place] [address] ([facility]) ([facility] = [facility] 1538[facility] [address] POCT-GLUCOSE [id number] 13:29:00 Test Item Value Reference Range Interpretation Comments POC-GLUCOSE METER 209 mg/dL 70-110 H TESTED AT [place] [address] ([facility]) (test code = [facility] 1538) [address] POCT-GLUCOSE [id number] 08:53:00 Test Item Value Reference Range Interpretation Comments POC-GLUCOSE METER 103 mg/dL 70-110 TESTED AT [place] [address] ([facility]) (test code = [place] 1538) [address] BASIC METABOLIC [id number] 07:47:00 Test Item Value Reference Range Interpretation [...] DIALYSIS PATIEN TS. WOUND CULTURE + GRAM [id number] 07:44:00 Test Item Value Reference Range Interpretation Comments CULTURE (BEAKER) (test code No growth = 1095) GRAM STAIN RESULT (BEAKER) No WBCs (test code = 1123) GRAM STAIN RESULT (BEAKER) No organisms seen (test code = 95732) [id number] 07:38:00 Test Item Value Reference Range Interpretation Comments PHOSPHORUS (BEAKER) (test code = 3.2 mg/dL 2.3-4.7 604) CBC W/PLT COUNT & AUTO [id number] 06:35:00 Test Item Value Reference Range Interpretation [...] PERCENT (BEAKER) (test code = 2801) PROTHROMBIN [id number] 06:32:00 Test Item Value Reference Range Interpretation Comments PROTIME (BEAKER) (test code = 23.2 seconds 11.7-14.7 H 759) INR (BEAKER) (test code = 370) 2.1 <=5.9 RECOMMENDED COUMADIN/WARFARIN INR THERAPY RANGESSTANDARD DOSE: 2.0 - 3.0 Includes: PROPHYLAXIS forvenous thrombosis, systemic embolization; TREATMENT for venous thrombosis and/or pulmonary embolus.HIGH RISK: Target INR is 2.5-3.5 for patients with mechanical heart valves.POCT-GLUCOSE [id number] 21:21:00 Test Item Value Reference Range Interpretation Comments POC-GLUCOSE METER 177 mg/dL 70-110 H TEST[facility] AT [place] [address] [facility] (test code = [facility] 1538) [address] POCT-GLUCOSE [id number] 17:53:00 Test Item Value Reference Range Interpretation Comments POC-GLUCOSE METER 89 mg/dL 70-110 TESTED AT [place] [address] [facility] (test code = [facility] [address] 1538) IRON, TIBC, % SAT. (WITHOUT FERRITIN)[id number] 17:45:00 Test Item Value Reference Range Interpretation Comments IRON (BEAKER) (test code = 547) 63 ug/dL 40-160 TOTAL IRON BINDING CAPACITY 203 ug/dL 250-450 L (BEAKER) (test code = 769) IRON % SATURATION (2) (BEAKER) 31 % 20-55 (test code = 2590) [id number] 16:07:00 Test Item Value Reference Range Interpretation Comments PHOSPHORUS (BEAKER) (test code = 5.4 mg/dL 2.3-4.7 H 604) POCT-GLUCOSE [id number] 12:41:00 Test Item Value Reference Range Interpretation Comments POC-GLUCOSE METER 110 mg/dL 70-110 TESTED AT [place] [address] [facility] (test code = [facility] 1538) [address] POCT-GLUCOSE [id number] 07:00:00 Test Item Value Reference Range Interpretation Comments POC-GLUCOSE METER 159 mg/dL 70-110 H TESTED AT [place] [address] (BEAKER) (test code = [facility] 1538) [address] BASIC METABOLIC [id number] 05:19:00 Test Item Value Reference Range Interpretation [...] S NOT APPLICABLE FOR DIALYSIS PATIEN TS. [id number] 05:18:00 Test Item Value Reference Range Interpretation Comments MAGNESIUM (BEAKER) (test code = 1.9 mg/dL 1.6-2.6 627) PROTHROMBIN [id number] 05:03:00 Test Item Value Reference Range Interpretation [...] PERCENT (BEAKER) (test code = 2801) POCT-GLUCOSE [id number] 23:35:00 Test Item Value Reference Range Interpretation Comments POC-GLUCOSE METER 190 mg/dL 70-110 H TESTED AT [facility] 6720 [facility] (test code = [place] 1538) [address] POCT-GLUCOSE [id number] 17:16:00 Test Item Value Reference Range Interpretation Comments POC-GLUCOSE METER 122 mg/dL 70-110 H TESTED AT [facility] 6720 [facility] (test code = [place] 1538) [address] U/S, TESTICULAR (SCROTUM)2018-05-21 14:53:00Reason for exam:->testicular swellingFINAL [...] MDReport Verified Date/Time: 05/21/2018 14:53:00 Reading Location: [facility] P0J UltrasoundReading Room POCT- GLUCOSE [id number] 11:22:00 Test Item Value Reference Range Interpretation Comments POC-GLUCOSE METER 144 mg/dL 70-110 H TESTED AT [place] [address] ([employer]) (test code = [place] 1538) [address] POCT-GLUCOSE [id number] 07:05:00 Test Item Value Reference Range Interpretation Comments POC-GLUCOSE METER 171 mg/dL 70-110 H TESTED AT [place] [address] (BEAKER) (test code = [place] 1538) [address] BASIC METABOLIC [id number] 06:19:00 Test Item Value Reference Range Interpretation [...] S NOT APPLICABLE FOR DIALYSIS PATIEN TS. [id number] 06:04:00 Test Item Value Reference Range Interpretation Comments MAGNESIUM (BEAKER) (test code = 1.9 mg/dL 1.6-2.6 627) PROTHROMBIN [id number] 05:31:00 Test Item Value Reference Range Interpretation [...] PERCENT (BEAKER) (test code = 2801) POCT-GLUCOSE [id number] 21:29:00 Test Item Value Reference Range Interpretation Comments POC-GLUCOSE METER 156 mg/dL 70-110 H TESTED AT [place] [address] ([facility]) (test code = [place] 1538) [address] POCT-GLUCOSE [id number] 18:14:00 Test Item Value Reference Range Interpretation Comments POC-GLUCOSE METER 93 mg/dL 70-110 TESTED AT [place] [address] ([facility]) (test code = [place] [facility] [address] 1538) PROTHROMBIN [id number] 13:26:00 Test Item Value Reference Range Interpretation Comments PROTIME ([facility]) (test code = 42.0 seconds 11.7-14.7 H 759) INR ([facility]) (test code = 370) 4.4 <=5.9 RECOMMENDED COUMADIN/WARFARIN INR THERAPY RANGESSTANDARD DOSE: 2.0 - 3.0 Includes: PROPHYLAXIS forvenous thrombosis, systemic embolization; TREATMENT for venous thrombosis and/or pulmonary embolus.HIGH RISK: Target INR is 2.5-3.5 for patients with mechanical heart valves.LACTIC ACID, VENOUS, WHOLE [id number] 13:18:00 Test Item Value Reference Range Interpretation Comments LACTATE BLOOD VENOUS (2) ([facility]) 0.8 mmol/L 0.5-2.2 (test code = 2872) Effective 01/04/2016: Units/Reference Range ChangeNew: 0.5-2.2 mmol/L Previous: 5-20 mg/dLPOCT-GLUCOSE [id number] 12:04:00 Test Item Value Reference Range Interpretation Comments POC-GLUCOSE METER 111 mg/dL 70-110 H TESTED AT [place] [address] ([facility]) (test code = [place] [facility] 1538) [address] CD4 T CELL [id number] 12:04:00 Test Item Value Reference Range Interpretation Comments CD4/CD8 RATIO FC ([facility]) (test code = 0.76 0.70-3.23 2126) HEPATITIS B SURFACE [id number] 11:32:00 Test Item Value Reference Range Interpretation Comments HEPATITIS B SURFACE ANTIGEN (2) Nonreactive Nonreactive ([facility]) (test code = 2585) VANCOMYCIN LEVEL, [id number] 11:10:00 Test Item Value Reference Range Interpretation Comments VANCOMYCIN RANDOM ([facility]) (test 20.7 ug/mL code = 523) Reference Range: No NormalsBASIC METABOLIC [id number] 09:19:00 Test Item Value Reference Range Interpretation [...] S NOT APPLICABLE FOR DIALYSIS PATIEN TS. [id number] 09:16:00 Test Item Value Reference Range Interpretation Comments MAGNESIUM (BEAKER) (test code = 2.1 mg/dL 1.6-2.6 627) RAD, CHEST, 1 VIEW, NON [id number] 07:56:00Reason for exam:->pleural effusion seen on outside hospital imagingShould this be performed at the bedside?->YesFINAL REPORT Chest one view compared to February 23 Discussion: Small effusions are similar. Replaced cardiac valve and atrial appendage clip noted. No pneumothorax. Unchanged cardiac pulmonary appearance. Signed: Rhea Colindreseport Verified Date/Time: 05/20/2018 07:56:50 Reading Location: [facility] Radiology Reading Room POCT-GLUCOSE [id number] 07:32:00 Test Item Value Reference Range Interpretation Comments POC-GLUCOSE METER 105 mg/dL 70-110 TESTED AT [facility] 6720 (BEAKER) (test code = [place] 1538) [address] CBC W/PLT COUNT & AUTO [id number] 07:01:00 Test Item Value Reference Range Interpretation [...] (BEAKER) (test code = 2801) VANCOMYCIN LEVEL, [id number] 22:39:00 Test Item Value Reference Range Interpretation Comments VANCOMYCIN RANDOM (BEAKER) (test 22.0 ug/mL code = 523) Reference Range: No NormalsCOMPREHENSIVE METABOLIC [id number] 22:39:00 Test Item Value Reference Range Interpretation [...] S NOT APPLICABLE FOR DIALYSIS PATIEN TS. [id number] 22:38:00 Test Item Value Reference Range Interpretation Comments PHOSPHORUS (BEAKER) (test code = 4.5 mg/dL 2.3-4.7 604) [id number] 22:38:00 Test Item Value Reference Range Interpretation Comments MAGNESIUM (BEAKER) (test code = 2.0 mg/dL 1.6-2.6 627) [id number] 22:29:00 Test Item Value Reference Range Interpretation Comments PARTIAL THROMBOPLASTIN TIME 45.0 seconds 22.5-36.0 H (JARROD) (test code = 760) PROTHROMBIN [id number] 22:28:00 Test Item Value Reference Range Interpretation Comments PROTIME (BEZOILA) (test code = 48.1 seconds 11.7-14.7 H 759) INR (BEZOILA) (test code = 370) 5.2 <=5.9 RECOMMENDED COUMADIN/WARFARIN INR THERAPY RANGESSTANDARD DOSE: 2.0 - 3.0 Includes: PROPHYLAXIS forvenous thrombosis, systemic embolization; TREATMENT for venous thrombosis and/or pulmonary embolus.HIGH RISK: Target INR is 2.5-3.5 for patients with mechanical heart valves.POCT-GLUCOSE [id number] 21:38:00 Test Item Value Reference Range Interpretation Comments POC-GLUCOSE METER 105 mg/dL 70-110 TESTED AT [facility] 6720 (JARROD) (test code = [place] 1538) [address] XR Ankle Complete 3+ Views [id number] 22:30:07Patient: CALEB LUGO Date/Time05/12/2018 22:24 CDTReason for [...] Signature): 05/12/2018 10:30 pmXR Chest 1 View [id number] 09:48:17Patient: CALEB LUGO Date/Time05/12/2018 09:30 CDTReason for [...] FSigned (Electronic Signature): 05/12/2018 9:48 amBASIC METABOLIC [id number] 11:15:00 Test Item Value Reference Range Interpretation [...] (BEAKER) (test code = 700) BASIC METABOLIC [id number] 02:55:00 Test Item Value Reference Range Interpretation [...] H (BEAKER) (test code = 700) TROPONIN [id number] 02:30:00 Test Item Value Reference Range Interpretation [...] failure, acidosis, acute neurological disease, and persistent tachyarrhythmia.[id number] 02:21:00 Test Item Value Reference Range Interpretation Comments MAGNESIUM (BEAKER) (test code = 1.8 mg/dL 1.6-2.6 627) CBC W/PLT COUNT & AUTO [id number] 00:24:00 Test Item Value Reference Range Interpretation [...] 0-1 PERCENT (BEAKER) (test code = 2801) [id number] 00:01:00 Test Item Value Reference Range Interpretation [...] mechanical heart valves.RAD, CHEST, 1 VIEW, NON [id number] 23:39:00Reason for exam:->chest painShould this be performed [...] Wan Verified Date/Time: 02/23/2018 23:39:58 Reading Location: [address] Reading Room POCT-GLUCOSE [id number] 19:47:00 Test Item Value Reference Range Interpretation Comments POC-GLUCOSE METER 94 mg/dL 70-110 TESTED AT [facility] ([facility]) (test [place] = [place] [address] 1538) POCT-GLUCOSE [id number] 17:07:00 Test Item Value Reference Range Interpretation Comments POC-GLUCOSE METER 176 mg/dL 70-110 H TESTED AT [place] [address] ([facility]) (test code = [place] [facility] 1538) [address] POCT-GLUCOSE [id number] 12:31:00 Test Item Value Reference Range Interpretation Comments POC-GLUCOSE METER 84 mg/dL 70-110 TESTED AT [place] [address] ([facility]) (test code = [place] [facility] [address] 1538) [id number] 10:40:00 Test Item Value Reference Range Interpretation Comments PARTIAL THROMBOPLASTIN TIME 88.5 seconds 22.5-36.0 H ([facility]) (test code = 760) OCCULT BLOOD, [id number] 09:36:00 Test Item Value Reference Range Interpretation Comments FECAL OCCULT BLOOD ([facility]) (test Negative Negative code = 618) POCT-GLUCOSE [id number] 08:51:00 Test Item Value Reference Range Interpretation Comments POC-GLUCOSE METER 223 mg/dL 70-110 H TESTED AT [place] [address] ([facility]) (test code = [place] [facility] 1538) [address] [id number] 04:14:00 Test Item Value Reference Range Interpretation Comments PARTIAL THROMBOPLASTIN TIME 80.3 seconds 22.5-36.0 H ([facility]) (test code = 760) While on warfarin.PROTHROMBIN [id number] 04:13:00 Test Item Value Reference Range Interpretation Comments PROTIME ([facility]) (test code = 23.8 seconds 11.7-14.7 H 759) INR ([facility]) (test code = 370) 2.1 <=5.9 RECOMMENDED COUMADIN/WARFARIN INR THERAPY RANGESSTANDARD DOSE: 2.0 - 3.0 Includes: PROPHYLAXIS forvenous thrombosis, systemic embolization; TREATMENT for venous thrombosis and/or pulmonary embolus.HIGH RISK: Target INR is 2.5-3.5 for patients with mechanical heart valves.While on warfarin.POCT-GLUCOSE METER 2018-02-02 21:56:00 Test Item Value Reference Range Interpretation Comments POC-GLUCOSE METER 206 mg/dL 70-110 H TESTED AT [place] [address] ([facility]) (test code = [place] [facility] 1538) [address] [id number] 19:50:00 Test Item Value Reference Range Interpretation Comments PARTIAL THROMBOPLASTIN TIME 59.7 seconds 22.5-36.0 H (BEAKER) (test code = 760) POCT-GLUCOSE [id number] 17:00:00 Test Item Value Reference Range Interpretation Comments POC-GLUCOSE METER 183 mg/dL 70-110 H TESTED AT [place] [address] (BEAKER) (test code = [place] 1538) [address] [id number] 12:45:00 Test Item Value Reference Range Interpretation Comments PARTIAL THROMBOPLASTIN TIME 89.5 seconds 22.5-36.0 H (BEAKER) (test code = 760) CBC W/PLT COUNT & AUTO [id number] 12:04:00 Test Item Value Reference Range Interpretation [...] WBC 0-0 (test code = 413) POCT-GLUCOSE [id number] 11:54:00 Test Item Value Reference Range Interpretation Comments POC-GLUCOSE METER 124 mg/dL 70-110 H TESTED AT [place] [address] (BEAKER) (test code = [place] Paul [facility] 1538) [address] POCT-GLUCOSE [id number] 07:48:00 Test Item Value Reference Range Interpretation Comments POC-GLUCOSE METER 178 mg/dL 70-110 H TESTED AT [facility] (BEAKER) (test code = [place] [facility] 1538) [address] BASIC METABOLIC [id number] 05:15:00 Test Item Value Reference Range Interpretation [...] S NOT APPLICABLE FOR DIALYSIS PATIEN TS. [id number] 04:51:00 Test Item Value Reference Range Interpretation Comments MAGNESIUM (BEAKER) (test code = 1.8 mg/dL 1.6-2.6 627) [id number] 04:36:00 Test Item Value Reference Range Interpretation Comments PARTIAL THROMBOPLASTIN TIME 91.9 seconds 22.5-36.0 H (BEAKER) (test code = 760) While on warfarin.PROTHROMBIN [id number] 04:34:00 Test Item Value Reference Range Interpretation [...] METER 126 mg/dL 70-110 H TESTED AT [place] [address] ([facility]) (test code = [place] [facility] 1538) [address] [id number] 21:23:00 Test Item Value Reference Range Interpretation Comments PARTIAL THROMBOPLASTIN TIME 84.1 seconds 22.5-36.0 H ([facility]) (test code = 760) POCT-GLUCOSE [id number] 16:57:00 Test Item Value Reference Range Interpretation Comments POC-GLUCOSE METER 156 mg/dL 70-110 H TESTED AT [place] [address] ([facility]) (test code = [place] Paul [facility] 1538) [address] [id number] 14:11:00 Test Item Value Reference Range Interpretation Comments PARTIAL THROMBOPLASTIN TIME 96.5 seconds 22.5-36.0 H ([facility]) (test code = 760) POCT-GLUCOSE [id number] 08:24:00 Test Item Value Reference Range Interpretation Comments POC-GLUCOSE METER 169 mg/dL 70-110 H TESTED AT [place] [address] ([facility]) (test code = [place] [facility] 1538) [address] POCT-GLUCOSE [id number] 06:49:00 Test Item Value Reference Range Interpretation Comments POC-GLUCOSE METER 172 mg/dL 70-110 H TESTED AT [place] [address] ([facility]) (test code = [place] [facility] 1538) [address] [id number] 04:59:00 Test Item Value Reference Range Interpretation Comments PARTIAL THROMBOPLASTIN TIME 64.7 seconds 22.5-36.0 H ([facility]) (test code = 760) While on warfarin.PROTHROMBIN TIME/[id number] 04:57:00 Test Item Value Reference Range Interpretation Comments PROTIME ([facility]) (test code = 17.5 seconds 11.7-14.7 H 759) INR ([facility]) (test code = 370) 1.4 <=5.9 RECOMMENDED COUMADIN/WARFARIN INR THERAPY RANGESSTANDARD DOSE: 2.0 - 3.0 Includes: PROPHYLAXIS forvenous thrombosis, systemic embolization; TREATMENT for venous thrombosis and/or pulmonary embolus.HIGH RISK: Target INR is 2.5-3.5 for patients with mechanical heart valves.While on warfarin.[id number] 21:55:00 Test Item Value Reference Range Interpretation Comments PARTIAL THROMBOPLASTIN TIME 68.8 seconds 22.5-36.0 H [facility] (test code = 760) [id number] 13:54:00 Test Item Value Reference Range Interpretation Comments PARTIAL THROMBOPLASTIN TIME 51.7 seconds 22.5-36.0 H (AKER) (test code = 760) POCT-GLUCOSE [id number] 11:56:00 Test Item Value Reference Range Interpretation Comments POC-GLUCOSE METER 101 mg/dL 70-110 TESTED AT [place] [address] ([facility]) ([facility] = [facility] 1538) [address] POCT-GLUCOSE [id number] 07:58:00 Test Item Value Reference Range Interpretation Comments POC-GLUCOSE METER 111 mg/dL 70-110 H TESTED AT [place] [address] ([facility]) (test code = [facility] 1538) [address] BASIC METABOLIC [id number] 05:35:00 Test Item Value Reference Range Interpretation [...] S NOT APPLICABLE FOR DIALYSIS PATIEN TS. [id number] 05:34:00 Test Item Value Reference Range Interpretation Comments PHOSPHORUS (BEAKER) (test code = 4.2 mg/dL 2.3-4.7 604) [id number] 05:34:00 Test Item Value Reference Range Interpretation Comments MAGNESIUM (BEAKER) (test code = 1.7 mg/dL 1.6-2.6 627) PROTHROMBIN [id number] 05:24:00 Test Item Value Reference Range Interpretation Comments PROTIME (BEAKER) (test code = 18.8 seconds 11.7-14.7 H 759) INR (BEAKER) (test code = 370) 1.6 <=5.9 RECOMMENDED COUMADIN/WARFARIN INR THERAPY RANGESSTANDARD DOSE: 2.0 - 3.0 Includes: PROPHYLAXIS forvenous thrombosis, systemic embolization; TREATMENT for venous thrombosis and/or pulmonary embolus.HIGH RISK: Target INR is 2.5-3.5 for patients with mechanical heart valves.[id number] 05:05:00 Test Item Value Reference Range Interpretation Comments PARTIAL THROMBOPLASTIN TIME 96.6 seconds 22.5-36.0 H (BEAKER) (test code = 760) CBC W/PLT COUNT & AUTO [id number] 04:54:00 Test Item Value Reference Range Interpretation [...] (BEAKER) (test code = 2801) OCCULT BLOOD, [id number] 22:44:00 Test Item Value Reference Range Interpretation Comments FECAL OCCULT BLOOD (BEAKER) (test Positive Negative A code = 618) [id number] 21:14:00 Test Item Value Reference Range Interpretation Comments PARTIAL THROMBOPLASTIN TIME 69.1 seconds 22.5-36.0 H (BEAKER) (test code = 760) POCT-GLUCOSE [id number] 20:49:00 Test Item Value Reference Range Interpretation Comments POC-GLUCOSE METER 160 mg/dL 70-110 H TESTED AT [facility] (BEAKER) (test code = [place] 1538) [address] POCT-GLUCOSE [id number] 17:59:00 Test Item Value Reference Range Interpretation Comments POC-GLUCOSE METER 128 mg/dL 70-110 H TEST[facility] AT [place] [address] [facility] (test code = [place] Paul [facility] 1538) [address] POCT-GLUCOSE [id number] 13:31:00 Test Item Value Reference Range Interpretation Comments POC-GLUCOSE METER 70 mg/dL 70-110 TESTED AT [place] [address] ([facility]) ([facility] = [facility] [address] 1538) [id number] 13:16:00 Test Item Value Reference Range Interpretation Comments PARTIAL THROMBOPLASTIN TIME 78.3 seconds 22.5-36.0 H (BEAKER) (test code = 760) POCT-GLUCOSE [id number] 12:47:00 Test Item Value Reference Range Interpretation Comments POC-GLUCOSE METER 49 mg/dL 70-110 L TESTED AT [place] [address] ([facility]) ([facility] = [facility] [address] 1538) POCT-GLUCOSE [id number] 09:05:00 Test Item Value Reference Range Interpretation Comments POC-GLUCOSE METER 306 mg/dL 70-110 H TESTED AT [place] [address] ([facility]) (test code = [facility] 1538) [address] OCCULT BLOOD, [id number] 06:52:00 Test Item Value Reference Range Interpretation Comments FECAL OCCULT BLOOD (BEAKER) (test Positive Negative A code = 618) [id number] 05:42:00 Test Item Value Reference Range Interpretation [...] 20-55 (test code = 2590) BASIC METABOLIC [id number] 03:53:00 Test Item Value Reference Range Interpretation [...] S NOT APPLICABLE FOR DIALYSIS PATIEN TS. [id number] 03:51:00 Test Item Value Reference Range Interpretation Comments PHOSPHORUS (BEAKER) (test code = 3.2 mg/dL 2.3-4.7 604) [id number] 03:51:00 Test Item Value Reference Range Interpretation Comments PARTIAL THROMBOPLASTIN TIME 122.0 seconds 22.5-36.0 H (BEAKER) (test code = 760) While on warfarin.PROTHROMBIN [id number] 03:48:00 Test Item Value Reference Range Interpretation Comments PROTIME (BEAKER) (test code = 16.3 seconds 11.7-14.7 H 759) INR (BEAKER) (test code = 370) 1.3 <=5.9 RECOMMENDED COUMADIN/WARFARIN INR THERAPY RANGESSTANDARD DOSE: 2.0 - 3.0 Includes: PROPHYLAXIS forvenous thrombosis, systemic embolization; TREATMENT for venous thrombosis and/or pulmonary embolus.HIGH RISK: Target INR is 2.5-3.5 for patients with mechanical heart valves.While on warfarin.[id number] 03:44:00 Test Item Value Reference Range Interpretation Comments MAGNESIUM (BEAKER) (test code = 1.7 mg/dL 1.6-2.6 627) CBC W/PLT COUNT & AUTO [id number] 03:38:00 Test Item Value Reference Range Interpretation [...] % 0-1 PERCENT (BEAKER) (test code = 2809) POCT-GLUCOSE [id number] 23:35:00 Test Item Value Reference Range Interpretation Comments POC-GLUCOSE METER 149 mg/dL 70-110 H TESTED AT [facility] ([facility]) (test code = [place] 1538) [address] [id number] 20:08:00 Test Item Value Reference Range Interpretation Comments PARTIAL THROMBOPLASTIN TIME 55.6 seconds 22.5-36.0 H ([facility]) (test code = 760) [id number] 15:10:00 Test Item Value Reference Range Interpretation Comments PARTIAL THROMBOPLASTIN TIME 81.4 seconds 22.5-36.0 H ([facility]) (test code = 760) POCT-GLUCOSE [id number] 11:58:00 Test Item Value Reference Range Interpretation Comments POC-GLUCOSE METER 124 mg/dL 70-110 H TESTED AT [facility] ([facility]) (test code = [place] 1538) [address] RAD, CHEST, 1 VIEW, NON [id number] 08:59:00Reason for exam:->s/p mvrShould this be performed at the bedside?->YesFINAL REPORT Chest one view compared to January 24 Discussion: Left IJ line, atrial appendage clip, cardiac valve replacement noted. Mild interstitial congestion. No gross effusion or pneumothorax. IMPRESSIONS: No significant change Signed: Rhea Colindres Verified Date/Time:01/29/2018 08:59:39 Reading Location: [facility] Radiology Reading Room POCT-GLUCOSE [id number] 07:41:00 Test Item Value Reference Range Interpretation Comments POC-GLUCOSE METER 113 mg/dL 70-110 H TESTED AT [facility] ([facility]) (test code = [place] 1538) [address] [id number] 07:23:00 Test Item Value Reference Range Interpretation Comments PARTIAL THROMBOPLASTIN TIME 89.8 seconds 22.5-36.0 H ([facility]) (test code = 760) BASIC METABOLIC [id number] 06:05:00 Test Item Value Reference Range Interpretation Comments SODIUM ([facility]) 134 meq/L 136-145 L (test code = [...] NOT APPLICABLE FOR DIALYSIS PATIEN TS. PROTHROMBIN [id number] 05:59:00 Test Item Value Reference Range Interpretation Comments PROTIME (BEAKER) (test code = 17.0 seconds 11.7-14.7 H 759) INR (BEAKER) (test code = 370) 1.4 <=5.9 RECOMMENDED COUMADIN/WARFARIN INR THERAPY RANGESSTANDARD DOSE: 2.0 - 3.0 Includes: PROPHYLAXIS forvenous thrombosis, systemic embolization; TREATMENT for venous thrombosis and/or pulmonary embolus.HIGH RISK: Target INR is 2.5-3.5 for patients with mechanical heart valves.While on warfarin.[id number] 05:56:00 Test Item Value Reference Range Interpretation Comments PHOSPHORUS (BEAKER) (test code = 5.3 mg/dL 2.3-4.7 H 604) [id number] 05:56:00 Test Item Value Reference Range Interpretation Comments MAGNESIUM (BEAKER) (test code = 1.9 mg/dL 1.6-2.6 627) CBC W/PLT COUNT & AUTO [id number] 05:38:00 Test Item Value Reference Range Interpretation [...] 0-1 PERCENT (BEAKER) (test code = 2801) [id number] 01:07:00 Test Item Value Reference Range Interpretation Comments PARTIAL THROMBOPLASTIN TIME 63.5 seconds 22.5-36.0 H (BEAKER) (test code = 760) [id number] 18:24:00 Test Item Value Reference Range Interpretation Comments PARTIAL THROMBOPLASTIN TIME 56.6 seconds 22.5-36.0 H (BEAKER) (test code = 760) POCT-GLUCOSE [id number] 18:14:00 Test Item Value Reference Range Interpretation Comments POC-GLUCOSE METER 101 mg/dL 70-110 TESTED AT [facility] (BEAKER) (test code = [facility] 1538) [address] [id number] 13:57:00 Test Item Value Reference Range Interpretation Comments PARTIAL THROMBOPLASTIN TIME 122.3 seconds 22.5-36.0 H (BEAKER) (test code = 760) POCT-GLUCOSE [id number] 13:08:00 Test Item Value Reference Range Interpretation Comments POC-GLUCOSE METER 105 mg/dL 70-110 TEST[facility] AT [place] [address] [facility] (test code = [facility] 1538) [address] BASIC METABOLIC [id number] 04:31:00 Test Item Value Reference Range Interpretation [...] S NOT APPLICABLE FOR DIALYSIS PATIEN TS. [id number] 04:28:00 Test Item Value Reference Range Interpretation Comments PHOSPHORUS (BEAKER) (test code = 3.9 mg/dL 2.3-4.7 604) [id number] 04:28:00 Test Item Value Reference Range Interpretation Comments MAGNESIUM (BEAKER) (test code = 1.7 mg/dL 1.6-2.6 627) HEPATIC FUNCTION [id number] 04:28:00 Test Item Value Reference Range Interpretation [...] (test code = 33 U/L 6-55 347) [id number] 04:20:00 Test Item Value Reference Range Interpretation Comments PARTIAL THROMBOPLASTIN TIME 106.2 seconds 22.5-36.0 H (BEAKER) (test code = 760) While on warfarin.PROTHROMBIN TIME/[id number] 04:15:00 Test Item Value Reference Range Interpretation [...] valves.While on warfarin.CBC W/PLT COUNT & AUTO [id number] 04:05:00 Test Item Value Reference Range Interpretation [...] PERCENT (BEAKER) (test code = 2801) POCT-GLUCOSE [id number] 00:29:00 Test Item Value Reference Range Interpretation Comments POC-GLUCOSE METER 119 mg/dL 70-110 H TESTED AT [place] [address] ([facility]) (test code = [place] 1538) [address] [id number] 00:24:00 Test Item Value Reference Range Interpretation Comments PARTIAL THROMBOPLASTIN TIME 72.4 seconds 22.5-36.0 H ([facility]) (test code = 760) POCT-GLUCOSE [id number] 18:33:00 Test Item Value Reference Range Interpretation Comments POC-GLUCOSE METER 158 mg/dL 70-110 H TESTED AT [place] [address] ([facility]) (test code = [place] 1538) [address] [id number] 18:22:00 Test Item Value Reference Range Interpretation Comments PARTIAL THROMBOPLASTIN TIME 78.6 seconds 22.5-36.0 H ([facility]) (test code = 760) POCT-GLUCOSE [id number] 12:20:00 Test Item Value Reference Range Interpretation Comments POC-GLUCOSE METER 110 mg/dL 70-110 TESTED AT [place] [address] ([facility]) (test code = [place] 1538) [address] [id number] 12:04:00 Test Item Value Reference Range Interpretation Comments PARTIAL THROMBOPLASTIN TIME 98.0 seconds 22.5-36.0 H ([facility]) (test code = 760) [id number] 04:11:00 Test Item Value Reference Range Interpretation Comments PROTIME ([facility]) (test code = 15.2 seconds 11.7-14.7 H 759) INR ([facility]) (test code = 370) 1.2 <=5.9 PARTIAL THROMBOPLASTIN TIME 67.9 seconds 22.5-36.0 H ([facility]) (test code = 760) RECOMMENDED COUMADIN/WARFARIN INR THERAPY RANGESSTANDARD DOSE: 2.0 - 3.0 Includes: PROPHYLAXIS forvenous thrombosis, systemic embolization; TREATMENT for venous thrombosis and/or pulmonary embolus.HIGH RISK: Target INR is 2.5-3.5 for patients with mechanical heart valves.While on warfarin.While on warfarin. PROTHROMBIN TIME/[id number] 04:10:00 Test Item Value Reference Range Interpretation Comments PROTIME (BEAKER) (test code = 15.2 seconds 11.7-14.7 H 759) INR (BEAKER) (test code = 370) 1.2 <=5.9 RECOMMENDED COUMADIN/WARFARIN INR THERAPY RANGESSTANDARD DOSE: 2.0 - 3.0 Includes: PROPHYLAXIS forvenous thrombosis, systemic embolization; TREATMENT for venous thrombosis and/or pulmonary embolus.HIGH RISK: Target INR is 2.5-3.5 for patients with mechanical heart valves.BASIC METABOLIC [id number] 03:53:00 Test Item Value Reference Range Interpretation [...] PATIEN TS. CBC W/PLT COUNT & AUTO [id number] 03:50:00 Test Item Value Reference Range Interpretation [...] H PERCENT (BEAKER) (test code = 2801) [id number] 03:45:00 Test Item Value Reference Range Interpretation Comments PHOSPHORUS (BEAKER) (test code = 4.7 mg/dL 2.3-4.7 604) [id number] 03:45:00 Test Item Value Reference Range Interpretation Comments MAGNESIUM (BEAKER) (test code = 2.0 mg/dL 1.6-2.6 627) HEPATIC FUNCTION [id number] 03:45:00 Test Item Value Reference Range Interpretation [...] (test code = 36 U/L 6-55 347) [id number] 22:16:00 Test Item Value Reference Range Interpretation Comments PARTIAL THROMBOPLASTIN TIME 60.7 seconds 22.5-36.0 H (BEAKER) (test code = 760) POCT-GLUCOSE [id number] 18:32:00 Test Item Value Reference Range Interpretation Comments POC-GLUCOSE METER 125 mg/dL 70-110 H TESTED AT [facility] 67[facility] ([facility]) (test code = [place] Paul [facility] 1538) [address] CBC (HEMOGRAM ONLY)[id number] 17:21:00 Test Item Value [...] (BEAKER) (test code = 413) BASIC METABOLIC [id number] 07:16:00 Test Item Value Reference Range Interpretation [...] S NOT APPLICABLE FOR DIALYSIS PATIEN TS. [id number] 07:13:00 Test Item Value Reference Range Interpretation Comments PHOSPHORUS (BEAKER) (test code = 4.3 mg/dL 2.3-4.7 604) [id number] 07:13:00 Test Item Value Reference Range Interpretation Comments MAGNESIUM (BEAKER) (test code = 2.0 mg/dL 1.6-2.6 627) HEPATIC FUNCTION [id number] 07:13:00 Test Item Value Reference Range Interpretation [...] (test code = 37 U/L 6-55 347) [id number] 07:12:00 Test Item Value Reference Range Interpretation [...] PERCENT (BEAKER) (test code = 2801) BLOOD [id number] 00:00:00 Test Item Value Reference Range Interpretation Comments CULTURE (BEAKER) (test No growth in 5 days code = 1095) BLOOD [id number] 00:00:00 Test Item Value Reference Range Interpretation Comments CULTURE (BEAKER) (test No growth in 5 days code = 1095) POCT-GLUCOSE [id number] 23:37:00 Test Item Value Reference Range Interpretation Comments POC-GLUCOSE METER 87 mg/dL 70-110 TESTED AT [facility] 6720 (BEAKER) (test code = [place] [address] 1538) [id number] 23:06:00 Test Item Value Reference Range Interpretation Comments PARTIAL THROMBOPLASTIN TIME 81.8 seconds 22.5-36.0 H (BEAKER) (test code = 760) POCT-GLUCOSE [id number] 20:42:00 Test Item Value Reference Range Interpretation Comments POC-GLUCOSE METER 193 mg/dL 70-110 H TESTED AT [facility] 67 (BEAKER) (test code = [place] 1538) [address] HEMOGLOBIN AND [id number] 17:40:00 Test Item Value Reference Range Interpretation Comments HEMOGLOBIN (BEAKER) (test code = 8.4 GM/DL 13.7-17.5 L 410) HEMATOCRIT (BEAKER) (test code = 25.4 % 40.1-51.0 L 411) [id number] 13:06:00 Test Item Value Reference Range Interpretation Comments PARTIAL THROMBOPLASTIN TIME 61.4 seconds 22.5-36.0 H (BEAKER) (test code = 760) POCT-GLUCOSE [id number] 12:56:00 Test Item Value Reference Range Interpretation Comments POC-GLUCOSE METER 116 mg/dL 70-110 H TESTED AT [facility] 6720 (BEAKER) (test code = [place] 1538) [address] [id number] 06:43:00 Test Item Value Reference Range Interpretation [...] 37 % 20-55 (test code = 2590) [id number] 05:32:00 Test Item Value Reference Range Interpretation Comments PARTIAL THROMBOPLASTIN TIME 63.7 seconds 22.5-36.0 H (BEAKER) (test code = 760) BASIC METABOLIC [id number] 05:03:00 Test Item Value Reference Range Interpretation [...] APPLICABLE FOR DIALYSIS PATIEN TS. HEPATIC FUNCTION [id number] 05:00:00 Test Item Value Reference Range Interpretation [...] (test code = 41 U/L 6-55 347) [id number] 04:40:00 Test Item Value Reference Range Interpretation [...] 0-0 (BEAKER) (test code = 413) POCT-GLUCOSE [id number] 00:30:00 Test Item Value Reference Range Interpretation Comments POC-GLUCOSE METER 112 mg/dL 70-110 H TESTED AT [facility] [address] (BEAKER) (test code = [place] 1538) [address] CBC W/PLT COUNT & AUTO [id number] 19:16:00 Test Item Value Reference Range Interpretation [...] PERCENT (BEAKER) (test code = 2801) POCT-GLUCOSE [id number] 18:27:00 Test Item Value Reference Range Interpretation Comments POC-GLUCOSE METER 102 mg/dL 70-110 TESTED AT [facility] (test code = [place] 1538) [id number] POCT-GLUCOSE [id number] 13:01:00 Test Item Value Reference Range Interpretation Comments POC-GLUCOSE METER 119 mg/dL 70-110 H TESTED AT [facility] [address] (BEAKER) (test code = [place] 1538) [address] RAD, CHEST, 1 VIEW, NON [id number] 10:59:00Reason for exam:->ptxShould this be performed at [...] in pulmonary opacities. Signed: Sarah Beth Mejia Verified Date/Time: 01/24/2018 10:59:29 Reading Location: [facility] Diagnostic Imaging Reading Room - [place] [address] BRONCHIAL CULTURE + GRAM STAIN 2018-01-24 08:53:00 Test Item Value Reference Range Interpretation Comments CULTURE (BEAKER) 2+ Normal respiratory (test code = 1095) pete present GRAM STAIN RESULT 4+ White blood cells (BEAKER) (test code = seen 1123) GRAM STAIN RESULT No organisms seen (BEAKER) (test code = 64723) POCT-GLUCOSE [id number] 06:28:00 Test Item Value Reference Range Interpretation Comments POC-GLUCOSE METER 119 mg/dL 70-110 H TESTED AT [facility] 6720 (BEAKER) (test code = FOSTER Paul [facility] 1538) [address] BASIC METABOLIC [id number] 04:41:00 Test Item Value Reference Range Interpretation [...] WBC 0-0 (BEAKER) (test code = 413) [id number] 04:21:00 Test Item Value Reference Range Interpretation Comments MAGNESIUM (BEAKER) (test code = 2.0 mg/dL 1.6-2.6 627) HEPATIC FUNCTION [id number] 04:21:00 Test Item Value Reference Range Interpretation [...] = 36 U/L 6-55 347) Specimen slightly [id number] 04:13:00 Test Item Value Reference Range Interpretation Comments PARTIAL THROMBOPLASTIN TIME 72.1 seconds 22.5-36.0 H (BEAKER) (test code = 760) BLOOD GAS, [id number] 04:13:00 Test Item Value Reference Range Interpretation [...] (test code = 1819) 100.0 % POCT-GLUCOSE [id number] 00:08:00 Test Item Value Reference Range Interpretation Comments POC-GLUCOSE METER 150 mg/dL 70-110 H TESTED AT [place] [address] ([facility]) (test code = [facility] 1538) [address] POCT-GLUCOSE [id number] 18:45:00 Test Item Value Reference Range Interpretation Comments POC-GLUCOSE METER 162 mg/dL 70-110 H TESTED AT [place] [id number] ([facility]) (test code = [facility] 1538) [address] POCT-GLUCOSE [id number] 13:14:00 Test Item Value Reference Range Interpretation Comments POC-GLUCOSE METER 176 mg/dL 70-110 H TESTED AT [facility] 6720 (BEAKER) (test code = FOSTER Paul [facility] 1538) [address] POCT-GLUCOSE [id number] 10:44:00 Test Item Value Reference Range Interpretation Comments POC-GLUCOSE METER 146 mg/dL 70-110 H TESTED AT [facility] 6720 (BEAKER) (test code = FOSTER Paul [facility] 1538) [address] BLOOD GAS, [id number] 10:32:00 Test Item Value Reference Range Interpretation [...] 40.0 % RAD, CHEST, 1 VIEW, NON [id number] 09:14:00Reason for exam:->ptxShould this be performed at the bedside?->YesFINAL REPORT COMPARISON: 01/22/2018 TECHNIQUE: Single view of the chest FINDINGS: Bilateral interstitial and airspace opacities again seen. Small pleural effusions are suspected. No gross new lung parenchymal changes. There is a tiny right apical pneumothorax. Support lines and tubes are stable. IMPRESSION: No significant interval change. Signed: Kyle Rome Verified Date/Time: 01/23/2018 09:14:48 Reading Location: [facility] Radiology Reading Room Electronically sign ed by: KYLE ROME M.D. on 01/23/2018 09:14 AMBLOOD [id number] 08:09:00 Test Item Value Reference Range Interpretation Comments CULTURE (BEAKER) A From Aerobi c Bottle (test code = Only [place] 1095) species GRAM STAIN From aerobic RESULT (BEAKER) bottle only: gram (test code = positive rods 1123) NOT DETECTEDPanel is negative for [employer]enburg BiopolymersFirThe African [employer] (AMI) BCID-detectable organisms. Please refer to traditional culture and sensitivity results as they become available.Other organisms and resistance markers not contained in this PCR panel cannot be excluded and follow-up of traditional culture results is required.This sample was tested at the [facility] Clinical Microbiology Laboratory using the [employer]kar[employer] Blood Culture ID Panel. This test is FDA cleared for in vitro diagnostic use and has been verified and approved by the [facility] Clinical Microbiology laboratory for clinical use. Reference Range: Not DetectedBLOOD GAS, [id number] 04:45:00 Test Item Value Reference Range Interpretation [...] code = 1819) 40.0 % BASIC METABOLIC [id number] 04:39:00 Test Item Value Reference Range Interpretation [...] APPLICABLE FOR DIALYSIS PATIEN TS. Specimen slightly [id number] 04:35:00 Test Item Value Reference Range Interpretation Comments MAGNESIUM (BEAKER) (test code = 1.8 mg/dL 1.6-2.6 627) HEPATIC FUNCTION [id number] 04:35:00 Test Item Value Reference Range Interpretation [...] = 40 U/L 6-55 347) Specimen slightly [id number] 04:18:00 Test Item Value Reference Range Interpretation [...] MEAN CORPUSCULAR HEMOGLOBIN CONC 32.9 GM/DL 32.3-36.5 (AKER) (test code = 752) RED CELL DISTRIBUTION WIDTH 20.4 % 11.6-14.4 H (AKER) (test code = 412) PLATELET COUNT ([facility]) (test code 85 K/CU MM 150-450 L = 756) MEAN PLATELET VOLUME (AKER) 10.1 fL 9.4-12.4 (test code = 754) NUCLEATED RED BLOOD CELLS ([facility]) 0 /100 WBC 0-0 (test code = 413) POCT-GLUCOSE [id number] 00:52:00 Test Item Value Reference Range Interpretation Comments POC-GLUCOSE METER 145 mg/dL 70-110 H TESTED AT [place] [address] ([facility]) ([facility] 1538) [address] BLOOD [id number] 00:00:00 Test Item Value Reference Range Interpretation Comments CULTURE ([facility]) (test No growth in 5 days code = 1095) POCT-GLUCOSE [id number] 18:17:00 Test Item Value Reference Range Interpretation Comments POC-GLUCOSE METER 97 mg/dL 70-110 TESTED AT [place] [address] ([facility]) (test code = FOSTER Paul [facility] [address] 1538) POCT-GLUCOSE [id number] 13:26:00 Test Item Value Reference Range Interpretation Comments POC-GLUCOSE METER 138 mg/dL 70-110 H TESTED AT [place] [address] ([facility]) ([facility] = [facility] 1538) [address] BLOOD GAS, [id number] 10:32:00 Test Item Value Reference Range Interpretation Comments PH ARTERIAL (AKER) (test code = 7.43 7.35-7.45 383) PCO2 ARTERIAL ([facility]) (test code 39 mmHg 35-45 = 384) PO2 ARTERIAL (AKER) (test code = 145 mmHg 80-90 H 385) O2 SATURATION ARTERIAL (BEAKER) 98.9 % 96.0-97.0 H (test code = 386) HCO3 ARTERIAL (BEAKER) (test code 25 mmol/L 21-29 = 388) BASE EXCESS ARTERIAL (BEAKER) 0.7 mmol/L -2.0-3.0 (test code = 387) PATIENT TEMPERATURE (BEAKER) (test 37.0 C code = 1818) FIO2 (BEAKER) (test code = 1819) 40.0 % POCT-GLUCOSE [id number] 06:21:00 Test Item Value Reference Range Interpretation Comments POC-GLUCOSE METER 138 mg/dL 70-110 H TESTED AT [facility] 6720 (BEAKER) (test code = [place] V[place] 1538) [address] BASIC METABOLIC [id number] 04:25:00 Test Item Value Reference Range Interpretation [...] APPLICABLE FOR DIALYSIS PATIEN TS. Specimen slightly [id number] 04:24:00 Test Item Value Reference Range Interpretation Comments MAGNESIUM (BEAKER) (test code = 2.1 mg/dL 1.6-2.6 627) HEPATIC FUNCTION [id number] 04:24:00 Test Item Value Reference Range Interpretation [...] /100 WBC 0-0 (test code = 413) [id number] 04:07:00 Test Item Value Reference Range Interpretation Comments PARTIAL THROMBOPLASTIN TIME 80.2 seconds 22.5-36.0 H (BEAKER) (test code = 760) BLOOD GAS, [id number] 04:06:00 Test Item Value Reference Range Interpretation [...] 40.0 % RAD, CHEST, 1 VIEW, NON [id number] 03:32:00Reason for exam:->ptxShould this be performed at [...] MDReport Verified Date/Time: 01/22/2018 03:32:38 Reading Location: [facility] C013Y CT Body Reading Room POCT-GLUCOSE [id number] 00:43:00 Test Item Value Reference Range Interpretation Comments POC-GLUCOSE METER 102 mg/dL 70-110 TESTED AT [facility] 6720 ([facility]) (test code = [place] 1538) [address] [id number] 17:31:00 Test Item Value Reference Range Interpretation Comments PARTIAL THROMBOPLASTIN TIME 65.0 seconds 22.5-36.0 H [facility] (test code = 760) POCT-GLUCOSE [id number] 17:24:00 Test Item Value Reference Range Interpretation Comments POC-GLUCOSE METER 171 mg/dL 70-110 H TESTED AT [facility] 6720 ([facility]) (test code = [place] 1538) [address] POCT-GLUCOSE [id number] 13:01:00 Test Item Value Reference Range Interpretation Comments POC-GLUCOSE METER 144 mg/dL 70-110 H TESTED AT [place] [id number] ([facility]) (test code = FOSTER Paul [facility] 1538) [address] [id number] 11:12:00 Test Item Value Reference Range Interpretation Comments PARTIAL THROMBOPLASTIN TIME 67.9 seconds 22.5-36.0 H ([facility]) (test code = 760) RAD, CHEST, 1 VIEW, NON [id number] 08:01:00Reason for exam:->ptxShould this be performed at [...] MDReport Verified Date/Time: 01/21/2018 08:01:07 Reading Location: [facility] Radiology Reading Room POCT-GLUCOSE [id number] 06:50:00 Test Item Value Reference Range Interpretation Comments POC-GLUCOSE METER 149 mg/dL 70-110 H TESTED AT [facility] 6720 ([facility]) (test code = [place] 1538) [address] CBC (HEMOGRAM ONLY)2018-01-21 04:20:00 Test Item Value Reference Range Interpretation Comments WHITE BLOOD CELL COUNT ([facility]) 16.6 K/ L 3.5-10.5 H (test code [...] /100 WBC 0-0 (test code = 413) [id number] 04:03:00 Test Item Value Reference Range Interpretation Comments PARTIAL THROMBOPLASTIN TIME 51.2 seconds 22.5-36.0 H (BEAKER) (test code = 760) BASIC METABOLIC [id number] 04:01:00 Test Item Value Reference Range Interpretation [...] APPLICABLE FOR DIALYSIS PATIEN TS. Specimen moderately [id number] 03:59:00 Test Item Value Reference Range Interpretation Comments MAGNESIUM (BEAKER) (test code = 2.0 mg/dL 1.6-2.6 627) HEPATIC FUNCTION [id number] 03:59:00 Test Item Value Reference Range Interpretation [...] U/L 6-55 347) Specimen moderately ictericVANCOMYCIN LEVEL, [id number] 03:57:00 Test Item Value Reference Range Interpretation Comments VANCOMYCIN RANDOM (BEAKER) (test 18.3 ug/mL code = 523) Reference Range: No NormalsOXYGEN SATURATION, [id number] 03:32:00 Test Item Value Reference Range Interpretation Comments O2 SATURATION (MEASURED) (BEAKER) 86.3 % (test code = 1455) BLOOD GAS, [id number] 03:30:00 Test Item Value Reference Range Interpretation [...] mmol/L 21-29 = 388) BASE EXCESS ARTERIAL ([facility]) 5.4 mmol/L -2.0-3.0 H (test code = 387) PATIENT TEMPERATURE ([facility]) (test 37.5 C code = 1818) FIO2 ([facility]) (test code = 1819) 40.0 % POCT-GLUCOSE [id number] 23:43:00 Test Item Value Reference Range Interpretation Comments POC-GLUCOSE METER 143 mg/dL 70-110 H TESTED AT [place] [address] ([facility]) (test code = [facility] 1538) [address] BLOOD [id number] 18:00:00 Test Item Value Reference Range Interpretation Comments CULTURE ([facility]) (test No growth in 5 days code = 1095) BLOOD [id number] 18:00:00 Test Item Value Reference Range Interpretation Comments [facility] (test No growth in 5 days code = 1095) POCT-GLUCOSE [id number] 16:32:00 Test Item Value Reference Range Interpretation Comments POC-GLUCOSE METER 185 mg/dL 70-110 H TESTED AT [place] [address] ([facility]) (test code = [facility] 1538) [address] MISCELLANEOUS LAB [id number] 15:04:00 Test Item Value Reference Range Interpretation Comments SCAN RESULT (test code = 0871438) Result comments: NOT DETECTED Panel is negative for [employer] BCID-detectable organisms. Please refer to traditional culture and sensitivity results as they become available. Other organisms and resistance markers not contained in this PCR panel cannot be excluded and follow-up of traditional culture results is required. This sample was tested at the [facility] Clinical Microbiology Laboratory using the [employer]opolymersfirThe [employer] (AMI) FilmArray Blood Culture ID Panel. This test is FDA cleared for in vitro diagnostic use and hasbeen verified and approved by the [facility] Clinical Microbiology laboratory for clinical use. ReferenceRange: Not DetectedPOCT- GLUCOSE [id number] 12:25:00 Test Item Value Reference Range Interpretation Comments POC-GLUCOSE METER 116 mg/dL 70-110 H TESTED AT [facility] 67 ([facility]) (test code = [facility] Humberto [facility] 1538) [address] RAD, CHEST, 1 VIEW, NON [id number] 06:38:00Reason for exam:->pl effusionShould this be performed [...] MDReport Verified Date/Time: 01/20/2018 06:38:33 Reading Location: [facility] C013Y CT Body Reading Room POCT-GLUCOSE [id number] 05:54:00 Test Item Value Reference Range Interpretation Comments POC-GLUCOSE METER 231 mg/dL 70-110 H TESTED AT [facility] 6720 ([facility]) (test code = [place] 1538) [address] VANCOMYCIN LEVEL, [id number] 04:23:00 Test Item Value Reference Range Interpretation Comments VANCOMYCIN RANDOM (BEAKER) (test 25.8 ug/mL code = 523) Reference Range: No [id number] 04:17:00 Test Item Value Reference Range Interpretation Comments MAGNESIUM (BEAKER) (test code = 2.0 mg/dL 1.6-2.6 627) HEPATIC FUNCTION [id number] 04:17:00 Test Item Value Reference Range Interpretation [...] 6-55 H 347) Specimen moderately ictericBASIC METABOLIC [id number] 04:17:00 Test Item Value Reference Range Interpretation [...] APPLICABLE FOR DIALYSIS PATIEN TS. Specimen moderately [id number] 04:05:00 Test Item Value Reference Range Interpretation Comments PARTIAL THROMBOPLASTIN TIME 69.7 seconds 22.5-36.0 H (BEAKER) (test code = 760) CBC W/PLT COUNT & AUTO [id number] 03:49:00 Test Item Value Reference Range Interpretation [...] (BEAKER) (test code = 2801) OXYGEN SATURATION, [id number] 03:48:00 Test Item Value Reference Range Interpretation Comments O2 SATURATION (MEASURED) (BEAKER) 84.1 % (test code = 1455) POCT-GLUCOSE [id number] 23:14:00 Test Item Value Reference Range Interpretation Comments POC-GLUCOSE METER 248 mg/dL 70-110 H TESTED AT [facility] 6720 (BEAKER) (test code = FOSTER [place] 1538) [address] POCT-GLUCOSE [id number] 18:56:00 Test Item Value Reference Range Interpretation Comments POC-GLUCOSE METER 213 mg/dL 70-110 H TESTED AT [facility] 6720 (BEAKER) (test code = FOSTER Paul [place] 1538) [address] POCT-GLUCOSE [id number] 14:06:00 Test Item Value Reference Range Interpretation Comments POC-GLUCOSE METER 210 mg/dL 70-110 H TESTED AT [facility] 6720 (BEAKER) (test code = FOSTER Paul [place] 1538) [address] SPUTUM CULTURE + GRAM [id number] 13:45:00 Test Item Value Reference Range Interpretation Comments CULTURE (BEAKER) 4+ Normal respiratory (test code = 1095) pete present GRAM STAIN RESULT 4+ WBCs (BEAKER) (test code = 1123) GRAM STAIN RESULT 0-5 epithelial cells (BEAKER) (test code = 43169) GRAM STAIN RESULT 3+ gram negative rods (BEAKER) (test code = 66114) GRAM STAIN RESULT 2+ gram positive cocci (BEAKER) (test code = in pairs and clusters 908699) [id number] 12:37:00 Test Item Value Reference Range Interpretation Comments PARTIAL THROMBOPLASTIN TIME 74.3 seconds 22.5-36.0 H (BEAKER) (test code = 760) CBC W/PLT COUNT & AUTO [id number] 10:52:00 Test Item Value Reference Range Interpretation [...] H (test code = 413) VANCOMYCIN LEVEL, [id number] 05:41:00 Test Item Value Reference Range Interpretation Comments VANCOMYCIN RANDOM (BEAKER) (test 27.9 ug/mL code = 523) Reference Range: No NormalsBASIC METABOLIC [id number] 05:39:00 Test Item Value Reference Range Interpretation [...] APPLICABLE FOR DIALYSIS PATIEN TS. Specimen moderately [id number] 05:36:00 Test Item Value Reference Range Interpretation Comments MAGNESIUM (BEAKER) (test code = 2.0 mg/dL 1.6-2.6 627) [id number] 05:36:00 Test Item Value Reference Range Interpretation Comments PHOSPHORUS (BEAKER) (test code = 3.9 mg/dL 2.3-4.7 604) HEPATIC FUNCTION [id number] 05:36:00 Test Item Value Reference Range Interpretation [...] 6-55 H 347) Specimen moderately ictericOXYGEN SATURATION, [id number] 05:33:00 Test Item Value Reference Range Interpretation [...] WBC 0-0 H (test code = 413) [id number] 05:24:00 Test Item Value Reference Range Interpretation Comments PARTIAL THROMBOPLASTIN TIME 68.1 seconds 22.5-36.0 H (BEAKER) (test code = 760) RAD, CHEST, 1 VIEW, NON [id number] 04:41:00Reason for exam:->pl effusionShould this be performed at the bedside?->YesFINAL REPORT CLINICAL INDICATION: Support lines. Comparison: 01/18/2018 The ca rdiomediastinal contours are stable. Central pulmonary vascular congestion and bilateral parenchymalopacities are unchanged. There is no pneumothorax. Support lines are stable. Signed: Kellen Parra MDReport Verified Date/Time: 01/19/2018 04:41:27 Reading Location: [address] Reading Room APTT 2018-01-19 00:38:00 Test Item Value Reference Range Interpretation Comments PARTIAL THROMBOPLASTIN TIME 45.5 seconds 22.5-36.0 H ([facility]) (test code = 760) POCT-GLUCOSE [id number] 00:21:00 Test Item Value Reference Range Interpretation Comments POC-GLUCOSE METER 189 mg/dL 70-110 H TESTED AT [place] [address] ([facility]) (test code = FOSTER Paul [facility] 1538) [address] POCT-GLUCOSE [id number] 23:34:00 Test Item Value Reference Range Interpretation Comments POC-GLUCOSE METER 162 mg/dL 70-110 H TESTED AT [place] [address] ([facility]) (test code = FOSTER Paul [facility] 1538) [address] POCT-GLUCOSE [id number] 18:09:00 Test Item Value Reference Range Interpretation Comments POC-GLUCOSE METER 172 mg/dL 70-110 H TESTED AT [place] [address] ([facility]) (test code = [facility] Humberto [facility] 1538) [address] RAD, ABDOMEN/KUB, 1 VIEW [id number] 17:36:00Reason for exam:->ileusShould this be performed at the bedside?->YesFINAL REPORT Comparison: 01/17/2018 TECHNIQUE: Frontal image of the abdomen FINDINGS: There is a nonspecific bowel gas pattern. Tip of nasogastric projects in the distal stomach. No gross free intraperitoneal air. No acute skeletal abnormality. Signed: Kyle Rome MDReport Verified Date/Time: 01/18/2018 17:36:02 Reading Location: [facility] C013 Transitional Reading Room [id number] 17:10:00 Test Item Value Reference Range Interpretation Comments PARTIAL THROMBOPLASTIN TIME 27.8 seconds 22.5-36.0 (BEAKER) (test code = 760) Prior to initiating heparinPOCT-GLUCOSE [id number] 15:22:00 Test Item Value Reference Range Interpretation Comments POC-GLUCOSE METER 126 mg/dL 70-110 H TESTED AT [facility] 6720 (BEAKER) (test code = [place] 1538) [address] [id number] 13:02:00 Test Item Value Reference Range Interpretation Comments PHOSPHORUS (BEAKER) (test code = 3.8 mg/dL 2.3-4.7 604) BASIC METABOLIC [id number] 13:02:00 Test Item Value Reference Range Interpretation [...] FOR DIALYSIS PATIEN TS. Specimen moderately ictericPOCT-GLUCOSE [id number] 12:11:00 Test Item Value Reference Range Interpretation Comments POC-GLUCOSE METER 113 mg/dL 70-110 H TESTED AT [facility] 6720 (BEAKER) (test code = [place] 1538) [address] CBC W/PLT COUNT & AUTO [id number] 12:03:00 Test Item Value Reference Range Interpretation [...] = 413) RAD, CHEST, 1 VIEW, NON [id number] 09:44:00Reason for exam:->pl effusionShould this be performed [...] MDReport Verified Date/Time: 01/18/2018 09:44:26 Reading Location: [address] Transitional Reading Room SPUTUM CULTURE + GRAM [id number] 08:09:00 Test Item Value Reference Range Interpretation Comments CULTURE (BEAKER) 3+ Normal respiratory (test code = 1095) pete present GRAM STAIN RESULT 4+ WBCs (BEAKER) (test code = 1123) GRAM STAIN RESULT 0-5 epithelial cells (BEAKER) (test code = 20660) GRAM STAIN RESULT No organisms seen (BEAKER) (test code = 65749) POCT-GLUCOSE [id number] 07:52:00 Test Item Value Reference Range Interpretation Comments POC-GLUCOSE METER 146 mg/dL 70-110 [facility] (BEAKER) (test code = [facility] 1538) [address] POCT-GLUCOSE [id number] 06:30:00 Test Item Value Reference Range Interpretation Comments POC-GLUCOSE METER 135 mg/dL 70-110 H TESTED AT [facility] 6720 (BEAKER) (test code = [facility] 1538) [address] POCT-GLUCOSE [id number] 06:30:00 Test Item Value Reference Range Interpretation Comments POC-GLUCOSE METER 130 mg/dL 70-110 H TESTED AT [facility] 6720 (BEAKER) (test code = [facility] 1538) [address] [id number] 03:56:00 Test Item Value Reference Range Interpretation Comments PHOSPHORUS (BEAKER) (test code = 3.1 mg/dL 2.3-4.7 604) [id number] 03:56:00 Test Item Value Reference Range Interpretation Comments MAGNESIUM (BEAKER) (test code = 2.0 mg/dL 1.6-2.6 627) HEPATIC FUNCTION [id number] 03:56:00 Test Item Value Reference Range Interpretation [...] 6-55 H 347) Specimen moderately ictericVANCOMYCIN LEVEL, [id number] 03:53:00 Test Item Value Reference Range Interpretation Comments VANCOMYCIN RANDOM (BEAKER) (test 18.0 ug/mL code = 523) Reference Range: No [id number] 03:48:00 Test Item Value Reference Range Interpretation Comments CALCIUM (BEAKER) (test code = 697) 8.1 mg/dL 8.4-10.2 L CALCIUM, [id number] 03:34:00 Test Item Value Reference Range Interpretation Comments CALCIUM IONIZED (BEAKER) (test 1.06 mmol/L 1.12-1.27 L code = 698) PH, BLOOD (BEAKER) (test code = 7.38 1810) OXYGEN SATURATION, [id number] 03:33:00 Test Item Value Reference Range Interpretation Comments O2 SATURATION (MEASURED) ([facility]) 85.8 % (test code = 1455) POCT-GLUCOSE [id number] 03:26:00 Test Item Value Reference Range Interpretation Comments POC-GLUCOSE METER 144 mg/dL 70-110 H TESTED AT [place] [address] ([facility]) (test code = FOSTER Paul [facility] 1538) [address] POCT-GLUCOSE [id number] 03:26:00 Test Item Value Reference Range Interpretation Comments POC-GLUCOSE METER 163 mg/dL 70-110 H TESTED AT [place] [address] ([facility]) (test code = FOSTER Paul [facility] 1538) [address] POCT-GLUCOSE [id number] 01:04:00 Test Item Value Reference Range Interpretation Comments POC-GLUCOSE METER 159 mg/dL 70-110 H TESTED AT [place] [address] ([facility]) (test code = FOSTER Paul [place] 1538) [address] POCT-GLUCOSE [id number] 00:12:00 Test Item Value Reference Range Interpretation Comments POC-GLUCOSE METER 132 mg/dL 70-110 H TESTED AT [facility] 6720 (BEAKER) (test code = [place] 1538) [address] LACTIC ACID, ARTERIAL, WHOLE [id number] 23:54:00 Test Item Value Reference Range Interpretation Comments LACTATE BLOOD ARTERIAL (2) 0.7 mmol/L 0.5-2.2 (BEAKER) (test code = 2874) Effective 01/04/2016: Units/Reference Range ChangeNew: 0.5-2.2 mmol/L Previous: 5-20 mg/dLSpecimen moderately ictericPOTASSIUM-STAT [id number] 23:30:00 Test Item Value Reference Range Interpretation Comments POTASSIUM (BEAKER) (test code = 4.0 meq/L 3.6-5.5 379) BLOOD GAS, [id number] 23:30:00 Test Item Value Reference Range Interpretation [...] code = 1819) 50.0 % SODIUM NA-STAT [id number] 23:30:00 Test Item Value Reference Range Interpretation Comments SODIUM (BEAKER) (test code = 381) 134 meq/L 135-148 L GLUCOSE-STAT [id number] 23:30:00 Test Item Value Reference Range Interpretation Comments GLUCOSE RANDOM (BEAKER) (test code 138 mg/dL 70-110 H = 652) HGB/HCT (H&H) - STAT [id number] 23:30:00 Test Item Value Reference Range Interpretation Comments HEMOGLOBIN (BEAKER) (test code = 9.0 g/dL 13.0-16.8 L 410) HEMATOCRIT (BEAKER) (test code = 26.0 % 40.0-50.0 L 411) CALCIUM, [id number] 23:30:00 Test Item Value Reference Range Interpretation Comments CALCIUM IONIZED (BEAKER) (test 1.04 mmol/L 1.12-1.27 L code = 698) PH, BLOOD ([facility]) (test code = 7.48 1810) OXYGEN SATURATION, [id number] 23:28:00 Test Item Value Reference Range Interpretation Comments O2 SATURATION (MEASURED) ([facility]) 82.0 % (test code = 1455) POCT-GLUCOSE [id number] 21:35:00 Test Item Value Reference Range Interpretation Comments POC-GLUCOSE METER 99 mg/dL 70-110 TESTED AT [facility] ([facility]) (test code = [facility] [address] 1538) POCT-GLUCOSE [id number] 21:35:00 Test Item Value Reference Range Interpretation Comments POC-GLUCOSE METER 111 mg/dL 70-110 H TESTED AT [facility] ([facility]) (test code = [facility] 1538) [address] RAD, CHEST, 1 VIEW, NON [id number] 17:08:00Reason for exam:->LIJ placment CVCShould this be [...] [place] Verified Date/Time: 01/17/2018 17:08:24 Reading Location: [facility] Radiology Reading Room GLUCOSE-STAT [id number] 16:33:00 Test Item Value Reference Range Interpretation Comments GLUCOSE RANDOM (BEAKER) (test code 147 mg/dL 70-110 H = 652) POTASSIUM-STAT [id number] 16:32:00 Test Item Value Reference Range Interpretation Comments POTASSIUM (BEAKER) (test code = 4.7 meq/L 3.6-5.5 379) [id number] 15:03:00 Test Item Value Reference Range Interpretation Comments PROCALCITONIN (BEAKER) (test code 5.33 ng/mL <0.05 H = 3036) SEPSIS RISK (ng/mL)Low: 0.05-0.50Intermediate: 0.51-2.00High: >=2.01CT BRAIN WITHOUT IV CONTRAST - [id number] 13:50:00Reason for exam:->altered mental statusFINAL REPORT CT [...] MDReport Verified Date/Time: 01/17/2018 13:50:42 Reading Location: [facility] Radiology Reading Room CALCIUM, [id number] 12:36:00 Test Item Value Reference Range Interpretation Comments CALCIUM IONIZED (BEAKER) (test 1.09 mmol/L 1.12-1.27 L code = 698) PH, BLOOD (BEAKER) (test code = 7.36 1810) GLUCOSE-STAT [id number] 12:36:00 Test Item Value Reference Range Interpretation Comments GLUCOSE RANDOM (BEAKER) (test code 147 mg/dL 70-110 H = 652) POTASSIUM-STAT [id number] 12:36:00 Test Item Value Reference Range Interpretation Comments POTASSIUM (BEAKER) (test code = 4.7 meq/L 3.6-5.5 379) RAD, ABDOMEN/KUB, 1 VIEW [id number] 08:42:00Reason for exam:->ileusShould this be performed at [...] MDReport Verified Date/Time: 01/17/2018 08:42:09 Reading Location: [facility] Radiology Reading Room CBC W/PLT COUNT & AUTO [id number] 08:18:00 Test Item Value Reference Range Interpretation [...] = 412) PLATELET COUNT (AKER) (test code 63 K/CU MM 150-450 L = 756) MEAN PLATELET VOLUME (AKER) 11.1 fL 9.4-12.4 (test code = 754) NUCLEATED RED BLOOD CELLS (AKER) 6 /100 WBC 0-0 H (test code = 413) HEPARIN ASSAY - [id number] 08:07:00 Test Item Value Reference Range Interpretation Comments UNFRACTIONATED HEPARIN-ANTI 10A < u/ml 0.30-0.70 L ([facility]) (test code = 1606) Recommendations for Monitoring Unfractionated Heparin Therapeutic Range: 0.3- 0.7 u/mL with continuous IV infusionPOCT-GLUCOSE [id number] 06:09:00 Test Item Value Reference Range Interpretation Comments POC-GLUCOSE METER 143 mg/dL 70-110 H TESTED AT [facility] ([facility]) (test code = [place] 1538) [address] RAD, CHEST, 1 VIEW, NON [id number] 04:43:00Reason for exam:->acute respiratory insufficiencyShould this be [...] MDReport Verified Date/Time: 01/17/2018 04:43:34 Reading Location: [facility] [id number] Body Reading Room OXYGEN SATURATION, [id number] 04:13:00 Test Item Value Reference Range Interpretation Comments O2 SATURATION (MEASURED) (BEAKER) 85.7 % (test code = 1455) [id number] 04:06:00 Test Item Value Reference Range Interpretation Comments PHOSPHORUS (BEAKER) (test code = 3.1 mg/dL 2.3-4.7 604) [id number] 04:06:00 Test Item Value Reference Range Interpretation Comments MAGNESIUM (BEAKER) (test code = 2.1 mg/dL 1.6-2.6 627) COMPREHENSIVE METABOLIC [id number] 04:06:00 Test Item Value Reference Range Interpretation [...] DIALYSIS PATIEN TS. Specimen moderately ictericHEPATIC FUNCTION [id number] 04:06:00 Test Item Value Reference Range Interpretation [...] 347) Specimen moderately ictericLACTIC ACID, ARTERIAL, WHOLE [id number] 03:59:00 Test Item Value Reference Range Interpretation Comments LACTATE BLOOD 0.5 mmol/L 0.5-2.2 Specimen sligh tly ARTERIAL (2) (BEAKER) hemoly zed (test code = 2874) Effective 01/04/2016: Units/Reference Range ChangeNew: 0.5-2.2 mmol/L Previous: 5-20 mg/dLSpecimen moderately ictericBLOOD GAS, [id number] 03:58:00 Test Item Value Reference Range Interpretation [...] (test 35.6 C code = 1818) FIO2 ([facility]) (test code = 1819) 40.0 % CALCIUM, [id number] 03:58:00 Test Item Value Reference Range Interpretation Comments CALCIUM IONIZED (BEAKER) (test 1.14 mmol/L 1.12-1.27 code = 698) PH, BLOOD ([facility]) (test code = 7.41 1810) POCT-GLUCOSE [id number] 02:41:00 Test Item Value Reference Range Interpretation Comments POC-GLUCOSE METER 144 mg/dL 70-110 H TESTED AT [place] [address] ([facility]) (test code = [facility] 1538) [address] POCT-GLUCOSE [id number] 00:30:00 Test Item Value Reference Range Interpretation Comments POC-GLUCOSE METER 171 mg/dL 70-110 H TESTED AT [place] [address] ([facility]) (test code = [facility] 1538) [address] POTASSIUM-STAT [id number] 00:08:00 Test Item Value Reference Range Interpretation Comments POTASSIUM (BEAKER) (test code = 4.5 meq/L 3.6-5.5 379) POCT-GLUCOSE [id number] 23:30:00 Test Item Value Reference Range Interpretation Comments POC-GLUCOSE METER 159 mg/dL 70-110 H TESTED AT [place] [address] ([facility]) (test code = [facility] 1538) [address] POCT-GLUCOSE [id number] 21:08:00 Test Item Value Reference Range Interpretation Comments POC-GLUCOSE METER 194 mg/dL 70-110 H TESTED AT [place] [address] ([facility]) (test code = [facility] 1538) [address] POCT-GLUCOSE [id number] 21:08:00 Test Item Value Reference Range Interpretation Comments POC-GLUCOSE METER 230 mg/dL 70-110 H TESTED AT [place] [address] ([facility]) (test code = [facility] 1538) [address] CALCIUM, [id number] 19:23:00 Test Item Value Reference Range Interpretation Comments CALCIUM IONIZED (BEAKER) (test 1.14 mmol/L 1.12-1.27 code = 698) PH, BLOOD ([facility]) (test code = 7.36 1810) POTASSIUM-STAT [id number] 19:23:00 Test Item Value Reference Range Interpretation Comments POTASSIUM (BEAKER) (test code = 5.1 meq/L 3.6-5.5 379) [id number] 17:27:00 Test Item Value Reference Range Interpretation Comments PHOSPHORUS (BEAKER) (test code = 2.2 mg/dL 2.3-4.7 L 604) [id number] 17:27:00 Test Item Value Reference Range Interpretation Comments MAGNESIUM (BEAKER) (test code = 2.1 mg/dL 1.6-2.6 627) PH, [id number] 17:03:00 Test Item Value Reference Range Interpretation Comments PH ARTERIAL (BEAKER) (test code = 383) 7.39 7.35-7.45 POCT-GLUCOSE [id number] 16:43:00 Test Item Value Reference Range Interpretation Comments POC-GLUCOSE METER 95 mg/dL 70-110 TESTED AT [place] [address] ([facility]) (test code = [facility] [address] 1538) POCT-GLUCOSE [id number] 14:41:00 Test Item Value Reference Range Interpretation Comments POC-GLUCOSE METER 134 mg/dL 70-110 H TESTED AT [place] [address] ([facility]) (test code = [facility] 1538) [address] RAD, ABDOMEN/KUB, 1 VIEW [id number] 13:16:00Reason for exam:- >constipationShould this be performed [...] MDReport Verified Date/Time: 01/16/2018 13:16:27 Reading Location: [facility] Reading Room Electronically signed by: KAY WALTER 01/16/2018 01:16 PMCALCIUM, [id number] 12:38:00 Test Item Value Reference Range Interpretation Comments CALCIUM IONIZED ([facility]) (test 1.14 mmol/L 1.12-1.27 code = 698) PH, BLOOD ([facility]) (test code = 7.40 1810) POCT-GLUCOSE [id number] 12:29:00 Test Item Value Reference Range Interpretation Comments POC-GLUCOSE METER 127 mg/dL 70-110 H TESTED AT [place] [address] ([facility]) (test code = [facility] 1538) [address] POCT-GLUCOSE [id number] 10:34:00 Test Item Value Reference Range Interpretation Comments POC-GLUCOSE METER 130 mg/dL 70-110 H TESTED AT [place] [address] ([facility]) (test code = [facility] 1538) [address] POCT-GLUCOSE [id number] 09:10:00 Test Item Value Reference Range Interpretation Comments POC-GLUCOSE METER 151 mg/dL 70-110 H TESTED AT [place] [address] ([facility]) (test code = [facility] 1538) [address] HEPARIN ASSAY - [id number] 09:00:00 Test Item Value Reference Range Interpretation Comments UNFRACTIONATED HEPARIN-ANTI 10A < u/ml 0.30-0.70 L ([facility]) (test code = 1606) Recommendations for Monitoring Unfractionated Heparin Therapeutic Range: 0.3- 0.7 u/mL with continuous IV infusionCBC W/PLT COUNT & AUTO DIFFERENTIAL 2018-01-16 08:55:00 Test Item Value Reference Range Interpretation Comments WHITE BLOOD CELL COUNT (AKER) 11.9 K/ L 3.5-10.5 H (test code = 775) RED BLOOD CELL COUNT (AKER) 2.64 M/ L 4.63-6.08 L (test code = 761) HEMOGLOBIN (BEAKER) (test code = 8.4 GM/DL 13.7-17.5 L 410) HEMATOCRIT ([facility]) (test code = 25.2 % 40.1-51.0 L 411) MEAN CORPUSCULAR VOLUME ([facility]) 95.5 fL 79.0-92.2 H (test code = [...] H (test code = 413) OXYGEN SATURATION, [id number] 08:30:00 Test Item Value Reference Range Interpretation Comments O2 SATURATION (MEASURED) (BEAKER) 87.1 % (test code = 1455) RAD, CHEST, 1 VIEW, NON [id number] 08:11:00Reason for exam:->acute respiratory insufficiencyShould this be performed at the bedside?->YesFINAL REPORT CLINICAL HISTORY: acute respiratory insufficiency TECHNIQUE: 1 view of the chest. COMPARISON: 01/15/2018 IMPRESSION: The Dolphin-Moni catheter has been removed. The supporting lines and tubes are otherwise unchanged. There is no pneumothorax. Mild bilateral perihilar lung opacities have decreased. The cardiomediastinal silhouette is magnified by technique with sternotomy wires. Signed: Lorna Slade MDReport Verified Date/Time: 01/16/2018 08:11:02 Reading Location: [facility] Radiology Reading Room POCT- GLUCOSE [id number] 06:43:00 Test Item Value Reference Range Interpretation Comments POC-GLUCOSE METER 107 mg/dL 70-110 TESTED AT [facility] ([facility]) (test code = [place] [facility] 1538) [address] U/S, ABDOMINAL, [id number] 05:25:00Abdomen limited area? Add comment if clarification [...] MDReport Verified Date/Time: 01/16/2018 05:25:06 Reading Location: [facility] [id number] CT Body Reading Room IC ACID, ARTERIAL, WHOLE [id number] 04:06:00 Test Item Value Reference Range Interpretation Comments LACTATE BLOOD ARTERIAL (2) 0.6 mmol/L 0.5-2.2 (BEAKER) (test code = 2874) Effective 01/04/2016: Units/Reference Range ChangeNew: 0.5-2.2 mmol/L Previous: 5-20 mg/dLSpecimen moderately [id number] 04:00:00 Test Item Value Reference Range Interpretation Comments PHOSPHORUS (BEAKER) (test code = 2.2 mg/dL 2.3-4.7 L 604) [id number] 04:00:00 Test Item Value Reference Range Interpretation Comments MAGNESIUM (BEAKER) (test code = 2.0 mg/dL 1.6-2.6 627) [id number] 04:00:00 Test Item Value Reference Range Interpretation Comments CALCIUM (BEAKER) (test code = 697) 8.5 mg/dL 8.4-10.2 COMPREHENSIVE METABOLIC [id number] 04:00:00 Test Item Value Reference Range Interpretation [...] DIALYSIS PATIEN TS. Specimen moderately ictericHEPATIC FUNCTION [id number] 04:00:00 Test Item Value Reference Range Interpretation [...] 6-55 H 347) Specimen moderately ictericBLOOD GAS, [id number] 03:51:00 Test Item Value Reference Range Interpretation [...] (test code = 1819) 60.0 % PROTHROMBIN [id number] 03:51:00 Test Item Value Reference Range Interpretation Comments PROTIME (BEAKER) (test code = 15.2 seconds 11.7-14.7 H 759) INR (BEAKER) (test code = 370) 1.2 <=5.9 RECOMMENDED COUMADIN/WARFARIN INR THERAPY RANGESSTANDARD DOSE: 2.0 - 3.0 Includes: PROPHYLAXIS forvenous thrombosis, systemic embolization; TREATMENT for venous thrombosis and/or pulmonary embolus.HIGH RISK: Target INR is 2.5-3.5 for patients with mechanical heart valves.CALCIUM, [id number] 03:51:00 Test Item Value Reference Range Interpretation Comments CALCIUM IONIZED (BEAKER) (test 1.17 mmol/L 1.12-1.27 code = 698) PH, BLOOD (BEAKER) (test code = 7.42 1810) POCT-GLUCOSE [id number] 02:08:00 Test Item Value Reference Range Interpretation Comments POC-GLUCOSE METER 110 mg/dL 70-110 TESTED AT [place] [address] ([facility]) (test code = [facility] 1538) [address] POCT-GLUCOSE [id number] 01:14:00 Test Item Value Reference Range Interpretation Comments POC-GLUCOSE METER 107 mg/dL 70-110 TESTED AT [place] [address] ([facility]) (test code = [place] [facility] 1538) [address] POCT-GLUCOSE [id number] 00:29:00 Test Item Value Reference Range Interpretation Comments POC-GLUCOSE METER 129 mg/dL 70-110 H TESTED AT [place] [address] ([facility]) (test code = [place] [facility] 1538) [address] POCT-GLUCOSE [id number] 23:07:00 Test Item Value Reference Range Interpretation Comments POC-GLUCOSE METER 152 mg/dL 70-110 H TESTED AT [place] [address] ([facility]) (test code = [place] [facility] 1538) [address] POCT-GLUCOSE [id number] 22:09:00 Test Item Value Reference Range Interpretation Comments POC-GLUCOSE METER 171 mg/dL 70-110 H TESTED AT [place] [address] ([facility]) (test code = [place] [facility] 1538) [address] POCT-GLUCOSE [id number] 21:13:00 Test Item Value Reference Range Interpretation Comments POC-GLUCOSE METER 171 mg/dL 70-110 H TESTED AT [place] [address] ([facility]) (test code = [place] [facility] 1538) [address] CALCIUM, [id number] 20:50:00 Test Item Value Reference Range Interpretation Comments CALCIUM IONIZED ([facility]) (test 1.15 mmol/L 1.12-1.27 code = 698) PH, BLOOD ([facility]) (test code = 7.34 1810) POCT-GLUCOSE [id number] 20:21:00 Test Item Value Reference Range Interpretation Comments POC-GLUCOSE METER 206 mg/dL 70-110 H TESTED AT [place] [address] ([facility]) (test code = [place] [facility] 1538) [address] POCT-GLUCOSE [id number] 19:16:00 Test Item Value Reference Range Interpretation Comments POC-GLUCOSE METER 197 mg/dL 70-110 H TESTED AT [place] [address] ([facility]) (test code = [place] 1538) [address] [id number] 17:15:00 Test Item Value Reference Range Interpretation Comments PHOSPHORUS (BEAKER) (test code = 4.1 mg/dL 2.3-4.7 604) [id number] 17:15:00 Test Item Value Reference Range Interpretation Comments MAGNESIUM (BEZOILA) (test code = 1.9 mg/dL 1.6-2.6 627) EEG AWAKE AND [id number] 14:56:00For STAT EEG- after 5 PM weekdays, weekends and holidays, page the on-call EEG TechReason for exam:->AMSShould this be performed at the bedside?->YesDate(s) of EE01/15/2018DATE OF REPORT: 01/15/2018ACC: [id number] Number: [id number] Location: Inpatient ICUStart time: 13:18Stop time: 13:40ICD-10: R41.82CPT Code: 68345 HISTORY: 62 y/o man with hxof AFib, [...] Kwon MD, MSClinic al Neurophysiology/Epilepsy Attending HEPARIN [id number] 13:21:00 Test Item Value Reference Range Interpretation Comments HEPARIN ANTIBODY ([facility]) (test code Negative Negative = 646) HEPARIN ANTIBODY OD ([facility]) (test 0.076 <0.400 code = 2659) 4T TOTAL SCORE ([facility]) (test code = 5 7000) Probability of HIT based on scoring system: 6-8 = High probability; 4-5 = intermediate probability;0-3 = low probabilityPOCT-GLUCOSE [id number] 12:26:00 Test Item Value Reference Range Interpretation Comments POC-GLUCOSE METER 128 mg/dL 70-110 H TESTED AT [facility] ([facility]) (test code = [place] 1538) [address] FIBRIN SOLUBLE [id number] 11:02:00 Test Item Value Reference Range Interpretation Comments FIBRIN SOLUBLE MONOMER ([facility]) Negative (test code = 1416) HEPARIN ASSAY - [id number] 10:20:00 Test Item Value Reference Range Interpretation Comments UNFRACTIONATED HEPARIN-ANTI 10A < u/ml 0.30-0.70 L ([facility]) (test code = 1606) Recommendations for Monitoring Unfractionated Heparin Therapeutic Range: 0.3- 0.7 u/mL with continuous IV enislihtN-[id number] 10:14:00 Test Item Value Reference Range Interpretation Comments D-DIMER QUANTITATIVE ([facility]) 3.76 MG/L FEU <0.50 H (test code [...] of thrombosis is within 95-100% range. GLUCOSE-STAT [id number] 10:03:00 Test Item Value Reference Range Interpretation Comments GLUCOSE RANDOM (BEAKER) (test code 151 mg/dL 70-110 H = 652) CALCIUM, [id number] 10:02:00 Test Item Value Reference Range Interpretation Comments CALCIUM IONIZED (BEAKER) (test 1.13 mmol/L 1.12-1.27 code = 698) PH, BLOOD (BEAKER) (test code = 7.36 1810) POTASSIUM-STAT [id number] 10:01:00 Test Item Value Reference Range Interpretation Comments POTASSIUM (BEAKER) (test code = 4.3 meq/L 3.6-5.5 379) CBC W/PLT COUNT & AUTO [id number] 07:43:00 Test Item Value Reference Range Interpretation [...] = 2801) RAD, CHEST, 1 VIEW, NON [id number] 04:00:00Reason for exam:->acute respiratory insufficiencyShould this be performed at the bedside?->Yes Addendum BeginsREPORT STATUS:A Correction: Comparison is made to previous dated 01/14/2018. Signed: Kellen Parraort Verified Date/Time: 01/15/2018 04:00:43 Reading Location: [address] Reading RoomAddendum EndsFINAL REPORT CLINICAL ADEEL CATION: Respiratory insufficiency Comparison: 01/15/2018 The cardiomediastinal contours are stable. Central pulmonary vascular congestion and bilateral parenchymal opacities are unchanged. There is no pneumothorax. Support lines are stable. Signed: Kellen Parraort Verified Date/Time: 01/15/201803:46:27 Reading Location: [address] Reading Room [id number] 03:36:00 Test Item Value Reference Range Interpretation Comments PHOSPHORUS (BEAKER) (test code = 2.7 mg/dL 2.3-4.7 604) [id number] 03:36:00 Test Item Value Reference Range Interpretation Comments MAGNESIUM (BEAKER) (test code = 2.0 mg/dL 1.6-2.6 627) COMPREHENSIVE METABOLIC [id number] 03:36:00 Test Item Value Reference Range Interpretation [...] DIALYSIS PATIEN TS. Specimen slightly ictericHEPATIC FUNCTION [id number] 03:36:00 Test Item Value Reference Range Interpretation [...] U/L 6-55 H 347) Specimen slightly ictericPROTHROMBIN [id number] 03:35:00 Test Item Value Reference Range Interpretation [...] mmol/L Previous: 5-20 mg/dLSpecimen slightly ictericBLOOD GAS, [id number] 03:29:00 Test Item Value Reference Range Interpretation [...] code = 1819) 40.0 % OXYGEN SATURATION, [id number] 03:26:00 Test Item Value Reference Range Interpretation Comments O2 SATURATION (MEASURED) (AKER) 72.5 % (test code = 1455) CALCIUM, [id number] 00:17:00 Test Item Value Reference Range Interpretation Comments CALCIUM IONIZED (BEAKER) (test 1.19 mmol/L 1.12-1.27 code = 698) PH, BLOOD ([facility]) (test code = 7.36 1810) POCT-GLUCOSE [id number] 00:15:00 Test Item Value Reference Range Interpretation Comments POC-GLUCOSE METER 144 mg/dL 70-110 H TESTED AT [place] [address] ([facility]) (test code = [facility] 1538) [address] POCT-GLUCOSE [id number] 22:43:00 Test Item Value Reference Range Interpretation Comments POC-GLUCOSE METER 98 mg/dL 70-110 TESTED AT [place] [address] ([facility]) (test code = [facility] [address] 1538) POCT-GLUCOSE [id number] 22:43:00 Test Item Value Reference Range Interpretation Comments POC-GLUCOSE METER 80 mg/dL 70-110 TESTED AT [place] [address] ([facility]) (test code = [facility] [address] 1538) VANCOMYCIN LEVEL, [id number] 20:20:00 Test Item Value Reference Range Interpretation Comments VANCOMYCIN TROUGH ([facility]) (test 20.1 ug/mL 10.0-20.0 H code = 522) Before vanc [id number] 16:52:00 Test Item Value Reference Range Interpretation Comments PHOSPHORUS (BEAKER) (test code = 1.7 mg/dL 2.3-4.7 L 604) [id number] 16:52:00 Test Item Value Reference Range Interpretation Comments MAGNESIUM (BEAKER) (test code = 2.3 mg/dL 1.6-2.6 627) [id number] 16:39:00 Test Item Value Reference Range Interpretation Comments AMMONIA (BEAKER) (test code = 348) 32 mol/L 18-72 PH, [id number] 16:01:00 Test Item Value Reference Range Interpretation Comments PH ARTERIAL (BEAKER) (test code = 383) 7.42 7.35-7.45 GLUCOSE-STAT [id number] 16:01:00 Test Item Value Reference Range Interpretation Comments GLUCOSE RANDOM (BEAKER) (test code = 95 mg/dL 70-110 652) POTASSIUM-STAT [id number] 16:01:00 Test Item Value Reference Range Interpretation Comments POTASSIUM (BEAKER) (test code = 4.3 meq/L 3.6-5.5 379) CALCIUM, [id number] 16:01:00 Test Item Value Reference Range Interpretation Comments CALCIUM IONIZED (BEAKER) (test 1.28 mmol/L 1.12-1.27 H code = 698) PH, BLOOD (BEAKER) (test code = 7.42 1810) CALCIUM, [id number] 12:19:00 Test Item Value Reference Range Interpretation Comments CALCIUM IONIZED (BEAKER) (test 1.36 mmol/L 1.12-1.27 H code = 698) PH, BLOOD (BEAKER) (test code = 7.41 1810) GLUCOSE-STAT [id number] 12:17:00 Test Item Value Reference Range Interpretation Comments GLUCOSE RANDOM (BEAKER) (test code = 94 mg/dL 70-110 652) POTASSIUM-STAT [id number] 12:17:00 Test Item Value Reference Range Interpretation Comments POTASSIUM (BEAKER) (test code = 4.3 meq/L 3.6-5.5 379) [id number] 11:34:00 Test Item Value Reference Range Interpretation Comments MAGNESIUM (BEAKER) (test code = 2.1 mg/dL 1.6-2.6 627) BASIC METABOLIC [id number] 11:34:00 Test Item Value Reference Range Interpretation [...] DIALYSIS PATIEN TS. Specimen slightly ictericHEPATIC FUNCTION [id number] 11:34:00 Test Item Value Reference Range Interpretation [...] 6-55 H 347) Specimen slightly ictericBLOOD GAS, [id number] 09:44:00 Test Item Value Reference Range Interpretation [...] (test code = 1819) 100.0 % GLUCOSE-STAT [id number] 09:42:00 Test Item Value Reference Range Interpretation Comments GLUCOSE RANDOM (BEAKER) (test code = 95 mg/dL 70-110 652) POTASSIUM-STAT [id number] 09:42:00 Test Item Value Reference Range Interpretation Comments POTASSIUM (BEAKER) (test code = 4.5 meq/L 3.6-5.5 379) CALCIUM, [id number] 09:38:00 Test Item Value Reference Range Interpretation Comments CALCIUM IONIZED (BEAKER) (test 1.26 mmol/L 1.12-1.27 code = 698) PH, BLOOD (BEAKER) (test code = 7.41 1810) HEPARIN ASSAY - [id number] 08:44:00 Test Item Value Reference Range Interpretation Comments UNFRACTIONATED HEPARIN-ANTI 10A < u/ml 0.30-0.70 L (BEAKER) (test code = 1606) Recommendations for Monitoring Unfractionated Heparin Therapeutic Range: 0.3- 0.7 u/mL with continuous IV infusionGLUCOSE-STAT [id number] 06:41:00 Test Item Value Reference Range Interpretation [...] (test 0.0 % 0.0-5.0 code = 1414) [id number] 05:05:00 Test Item Value Reference Range Interpretation Comments PHOSPHORUS (BEAKER) (test code = 2.5 mg/dL 2.3-4.7 604) [id number] 05:05:00 Test Item Value Reference Range Interpretation Comments MAGNESIUM (BEAKER) (test code = 2.1 mg/dL 1.6-2.6 627) HEPATIC FUNCTION [id number] 05:05:00 Test Item Value Reference Range Interpretation [...] 1266 U/L 6-55 H 347) Specimen slightly [id number] 05:05:00 Test Item Value Reference Range Interpretation Comments CALCIUM (BEAKER) (test code = 697) 9.0 mg/dL 8.4-10.2 LACTATE DEHYDROGENASE (LDH)2018-01-14 05:05:00 Test Item Value Reference Range Interpretation Comments LACTATE DEHYDROGENASE (BEAKER) (test 667 U/L 125-220 H code = 635) PROTHROMBIN [id number] 05:05:00 Test Item Value Reference Range Interpretation Comments PROTIME (BEAKER) (test code = 15.2 seconds 11.7-14.7 H 759) INR (BEAKER) (test code = 370) 1.2 <=5.9 RECOMMENDED COUMADIN/WARFARIN INR THERAPY RANGESSTANDARD DOSE: 2.0 - 3.0 Includes: PROPHYLAXIS forvenous thrombosis, systemic embolization; TREATMENT for venous thrombosis and/or pulmonary embolus.HIGH RISK: Target INR is 2.5-3.5 for patients with mechanical heart valves.[id number] 05:05:00 Test Item Value Reference Range Interpretation Comments FIBRINOGEN LEVEL (BEAKER) (test 280 mg/dl 225-434 code = 658) RAD, CHEST, 1 VIEW, NON [id number] 04:57:00Reason for exam:- >impella/ECMO/intubationShould this be performed at the bedside?->YesFINAL REPORT CLINICAL INDICATION: Support lines. Comparison: 01/13/2018 The cardiomediastinal contours are stable. Cardiac opacities may reflect atelectasis but pneumonitis should be excluded clinically. There is no pneumothorax. Support lines are stable. Signed: Kellen Parra MDReport Verified Date/Time: 01/14/2018 04:57:02 Reading Location: [address] Reading Room LACTIC ACID, ARTERIAL, WHOLE [id number] 04:55:00 Test Item Value Reference Range Interpretation [...] H (BEAKER) (test code = 413) CALCIUM, [id number] 04:39:00 Test Item Value Reference Range Interpretation Comments CALCIUM IONIZED (BEAKER) (test 1.20 mmol/L 1.12-1.27 code = 698) PH, BLOOD (BEAKER) (test code = 7.37 1810) OXYGEN SATURATION, [id number] 04:38:00 Test Item Value Reference Range Interpretation Comments O2 SATURATION (MEASURED) (BEAKER) 75.3 % (test code = 1455) BLOOD GAS, [id number] 04:37:00 Test Item Value Reference Range Interpretation [...] (test code = 1819) 40.0 % GLUCOSE-STAT [id number] 04:37:00 Test Item Value Reference Range Interpretation Comments GLUCOSE RANDOM (BEAKER) (test code 154 mg/dL 70-110 H = 652) GLUCOSE-STAT [id number] 02:52:00 Test Item Value Reference Range Interpretation Comments GLUCOSE RANDOM (BEAKER) (test code 179 mg/dL 70-110 H = 652) GLUCOSE-STAT [id number] 01:26:00 Test Item Value Reference Range Interpretation Comments GLUCOSE RANDOM (BEAKER) (test code 195 mg/dL 70-110 H = 652) [id number] 00:08:00 Test Item Value Reference Range Interpretation Comments POTASSIUM (BEAKER) (test code = 4.2 meq/L 3.5-5.1 379) [id number] 00:08:00 Test Item Value Reference Range Interpretation Comments GLUCOSE RANDOM (BEAKER) (test code 237 mg/dL 70-105 H = 652) CBC W/PLT COUNT & AUTO [id number] 22:28:00 Test Item Value Reference Range Interpretation [...] = 413) RAD, CHEST, 1 VIEW, NON [id number] 21:50:00Reason for exam:->chest tubes/intubationShould this be performed [...] MDReport Verified Date/Time: 01/13/2018 21:50:50 Reading Location: [address] Consult Reading Room THROMBOELASTOGRAPH (TEG)2018-01-13 21:45:00 [...] % 0.0-5.0 code = 1414) BASIC METABOLIC [id number] 21:35:00 Test Item Value Reference Range Interpretation [...] APPLICABLE FOR DIALYSIS PATIEN TS. Specimen slightly [id number] 21:06:00 Test Item Value Reference Range Interpretation Comments PHOSPHORUS (BEAKER) (test code = 3.7 mg/dL 2.3-4.7 604) [id number] 21:06:00 Test Item Value Reference Range Interpretation Comments MAGNESIUM (BEAKER) (test code = 2.0 mg/dL 1.6-2.6 627) LACTIC ACID, ARTERIAL, WHOLE [id number] 21:06:00 Test Item Value Reference Range Interpretation Comments LACTATE BLOOD ARTERIAL (2) 1.8 mmol/L 0.5-2.2 (BEAKER) (test code = 2874) Effective 01/04/2016: Units/Reference Range ChangeNew: 0.5-2.2 mmol/L Previous: 5-20 mg/dLSpecimen slightly [id number] 21:01:00 Test Item Value Reference Range Interpretation Comments PARTIAL THROMBOPLASTIN TIME 35.1 seconds 22.5-36.0 (BEAKER) (test code = 760) [id number] 21:00:00 Test Item Value Reference Range Interpretation Comments FIBRINOGEN LEVEL (BEAKER) (test 253 mg/dl 225-434 code = 658) PROTHROMBIN [id number] 20:59:00 Test Item Value Reference Range Interpretation Comments PROTIME (BEAKER) (test code = 16.4 seconds 11.7-14.7 H 759) INR (BEAKER) (test code = 370) 1.3 <=5.9 RECOMMENDED COUMADIN/WARFARIN INR THERAPY RANGESSTANDARD DOSE: 2.0 - 3.0 Includes: PROPHYLAXIS forvenous thrombosis, systemic embolization; TREATMENT for venous thrombosis and/or pulmonary embolus.HIGH RISK: Target INR is 2.5-3.5 for patients with mechanical heart valves.BLOOD GAS, [id number] 20:47:00 Test Item Value Reference Range Interpretation [...] (test code = 1819) 40.0 % GLUCOSE-STAT [id number] 20:47:00 Test Item Value Reference Range Interpretation Comments GLUCOSE RANDOM (BEAKER) (test code 235 mg/dL 70-110 H = 652) CALCIUM, [id number] 20:47:00 Test Item Value Reference Range Interpretation Comments CALCIUM IONIZED (BEAKER) (test 0.97 mmol/L 1.12-1.27 L code = 698) PH, BLOOD (BEAKER) (test code = 7.39 1810) HGB/HCT (H&H) - STAT [id number] 20:46:00 Test Item Value Reference Range Interpretation Comments HEMOGLOBIN (BEAKER) (test code = 7.7 g/dL 13.0-16.8 L 410) HEMATOCRIT (BEAKER) (test code = 23.0 % 40.0-50.0 L 411) POTASSIUM-STAT [id number] 20:46:00 Test Item Value Reference Range Interpretation Comments POTASSIUM (BEAKER) (test code = 3.4 meq/L 3.6-5.5 L 379) SODIUM NA-STAT [id number] 20:46:00 Test Item Value Reference Range Interpretation Comments SODIUM (BEAKER) (test code = 381) 133 meq/L 135-148 L OXYGEN SATURATION, [id number] 20:42:00 Test Item Value Reference Range Interpretation Comments O2 SATURATION (MEASURED) (BEAKER) 74.1 % (test code = 1455) BLOOD GAS, [id number] 18:58:00 Test Item Value Reference Range Interpretation [...] code = 1819) 100.0 % SODIUM NA-STAT [id number] 18:58:00 Test Item Value Reference Range Interpretation Comments SODIUM (BEAKER) (test code = 381) 131 meq/L 135-148 L POTASSIUM-STAT [id number] 18:58:00 Test Item Value Reference Range Interpretation Comments POTASSIUM (BEAKER) (test code = 3.4 meq/L 3.6-5.5 L 379) GLUCOSE-STAT [id number] 18:58:00 Test Item Value Reference Range Interpretation Comments GLUCOSE RANDOM (BEAKER) (test code 214 mg/dL 70-110 H = 652) HGB/HCT (H&H) - STAT [id number] 18:58:00 Test Item Value Reference Range Interpretation [...] % 0.0-5.0 code = 1414) BLOOD GAS, [id number] 18:11:00 Test Item Value Reference Range Interpretation [...] code = 1819) 97.0 % SODIUM NA-STAT [id number] 18:11:00 Test Item Value Reference Range Interpretation Comments SODIUM (BEAKER) (test code = 381) 132 meq/L 135-148 L GLUCOSE-STAT [id number] 18:11:00 Test Item Value Reference Range Interpretation Comments GLUCOSE RANDOM (BEAKER) (test code 200 mg/dL 70-110 H = 652) HGB/HCT (H&H) - STAT [id number] 18:11:00 Test Item Value Reference Range Interpretation Comments HEMOGLOBIN (BEAKER) (test code = 8.2 g/dL 13.0-16.8 L 410) HEMATOCRIT (BEAKER) (test code = 24.0 % 40.0-50.0 L 411) POTASSIUM-STAT [id number] 18:07:00 Test Item Value Reference Range Interpretation Comments POTASSIUM (BEAKER) (test code = 3.5 meq/L 3.6-5.5 L 379) [id number] 16:37:00 Test Item Value Reference Range Interpretation Comments PHOSPHORUS (BEAKER) (test code = 2.5 mg/dL 2.3-4.7 604) [id number] 16:37:00 Test Item Value Reference Range Interpretation Comments MAGNESIUM (BEAKER) (test code = 2.1 mg/dL 1.6-2.6 627) [id number] 16:29:00 Test Item Value Reference Range Interpretation [...] for patients with mechanical heart valves.BLOOD GAS, [id number] 16:16:00 Test Item Value Reference Range Interpretation [...] (test code = 1819) 40.0 % CALCIUM, [id number] 16:14:00 Test Item Value Reference Range Interpretation Comments CALCIUM IONIZED (BEAKER) (test 1.09 mmol/L 1.12-1.27 L code = 698) PH, BLOOD (BEAKER) (test code = 7.64 1810) GLUCOSE-STAT [id number] 16:12:00 Test Item Value Reference Range Interpretation Comments GLUCOSE RANDOM (BEAKER) (test code 182 mg/dL 70-110 H = 652) CALCIUM, [id number] 12:53:00 Test Item Value Reference Range Interpretation Comments CALCIUM IONIZED (BEAKER) (test 1.12 mmol/L 1.12-1.27 code = 698) PH, BLOOD (BEAKER) (test code = 7.51 1810) BLOOD GAS, [id number] 12:53:00 Test Item Value Reference Range Interpretation [...] 1819) 40.0 % HGB/HCT (H&H) - STAT [id number] 12:53:00 Test Item Value Reference Range Interpretation Comments HEMOGLOBIN (BEAKER) (test code = 8.3 g/dL 13.0-16.8 L 410) HEMATOCRIT (BEAKER) (test code = 24.0 % 40.0-50.0 L 411) GLUCOSE-STAT [id number] 12:53:00 Test Item Value Reference Range Interpretation Comments GLUCOSE RANDOM (BEAKER) (test code 185 mg/dL 70-110 H = 652) POTASSIUM-STAT [id number] 12:52:00 Test Item Value Reference Range Interpretation Comments POTASSIUM (BEAKER) (test code = 3.7 meq/L 3.6-5.5 379) CBC W/PLT COUNT & AUTO [id number] 11:04:00 Test Item Value Reference Range Interpretation [...] 0-0 H (test code = 413) POTASSIUM-STAT [id number] 10:49:00 Test Item Value Reference Range Interpretation Comments POTASSIUM (BEAKER) (test code = 3.8 meq/L 3.6-5.5 379) HEPARIN ASSAY - [id number] 09:55:00 Test Item Value Reference Range Interpretation Comments UNFRACTIONATED HEPARIN-ANTI 10A 0.14 u/ml 0.30-0.70 L (BEAKER) (test code = 1606) Recommendations for Monitoring Unfractionated Heparin Therapeutic Range: 0.3- 0.7 u/mL with continuous IV [id number] 09:54:00 Test Item Value Reference Range Interpretation Comments PARTIAL THROMBOPLASTIN TIME 57.6 seconds 22.5-36.0 H (BEAKER) (test code = 760) BLOOD GAS, [id number] 09:33:00 Test Item Value Reference Range Interpretation [...] (test code = 1819) 40.0 % GLUCOSE-STAT [id number] 09:33:00 Test Item Value Reference Range Interpretation Comments GLUCOSE RANDOM (BEAKER) (test code 192 mg/dL 70-110 H = 652) GLUCOSE-STAT [id number] 09:33:00 Test Item Value Reference Range Interpretation Comments GLUCOSE RANDOM (BEAKER) (test code 192 mg/dL 70-110 H = 652) CALCIUM, [id number] 09:32:00 Test Item Value Reference Range Interpretation Comments CALCIUM IONIZED (BEAKER) (test 1.15 mmol/L 1.12-1.27 code = 698) PH, BLOOD (BEAKER) (test code = 7.51 1810) BLOOD GAS, [id number] 07:23:00 Test Item Value Reference Range Interpretation [...] % 0.0-5.0 code = 1414) BLOOD GAS, [id number] 06:13:00 Test Item Value Reference Range Interpretation [...] code = 1819) 40.0 % BLOOD GAS, [id number] 05:13:00 Test Item Value Reference Range Interpretation [...] (BEAKER) (test code = 1819) 100.0 % [id number] 04:41:00 Test Item Value Reference Range Interpretation Comments PARTIAL THROMBOPLASTIN TIME 61.3 seconds 22.5-36.0 H (BEAKER) (test code = 760) RAD, CHEST, 1 VIEW, NON [id number] 04:38:00Reason for exam:- >impella/ECMO/intubationShould this be performed at the bedside?->YesFINAL REPORT CLINICAL INDICATION: Support lines. Comparison: 01/12/2018 The cardiomediastinal contours are stable. Central pulmonary vascular prominence and bilateral parenchymalopacities are previous. There is no pneumothorax. Support lines are stable. Signed: Kellen Parra MDRepsh[facility] Verified Date/Time: 01/13/2018 04:38:41 Reading Location: [address] Reading Room HEPATIC FUNCTION [id number] 04:25:00 Test Item Value Reference Range Interpretation [...] 2232 U/L 6-55 H 347) Specimen slightly [id number] 04:19:00 Test Item Value Reference Range Interpretation Comments PHOSPHORUS (BEAKER) (test code = 4.1 mg/dL 2.3-4.7 604) [id number] 04:19:00 Test Item Value Reference Range Interpretation Comments MAGNESIUM (BEAKER) (test code = 1.9 mg/dL 1.6-2.6 627) [id number] 04:19:00 Test Item Value Reference Range Interpretation Comments CALCIUM (BEAKER) (test code = 697) 8.6 mg/dL 8.4-10.2 BASIC METABOLIC [id number] 04:19:00 Test Item Value Reference Range Interpretation [...] 1658 U/L 125-220 H code = 635) [id number] 04:16:00 Test Item Value Reference Range Interpretation Comments FIBRINOGEN LEVEL (BEAKER) (test 299 mg/dl 225-434 code = 658) LACTIC ACID, ARTERIAL, WHOLE [id number] 04:16:00 Test Item Value Reference Range Interpretation Comments LACTATE BLOOD ARTERIAL (2) 0.8 mmol/L 0.5-2.2 (BEAKER) (test code = 2874) Effective 01/04/2016: Units/Reference Range ChangeNew: 0.5-2.2 mmol/L Previous: 5-20 mg/dLSpecimen slightly ictericPROTHROMBIN [id number] 04:15:00 Test Item Value Reference Range Interpretation Comments PROTIME (BEAKER) (test code = 15.8 seconds 11.7-14.7 H 759) INR (BEAKER) (test code = 370) 1.3 <=5.9 RECOMMENDED COUMADIN/WARFARIN INR THERAPY RANGESSTANDARD DOSE: 2.0 - 3.0 Includes: PROPHYLAXIS forvenous thrombosis, systemic embolization; TREATMENT for venous thrombosis and/or pulmonary embolus.HIGH RISK: Target INR is 2.5-3.5 for patients with mechanical heart valves.CALCIUM, [id number] 04:04:00 Test Item Value Reference Range Interpretation Comments CALCIUM IONIZED (BEAKER) (test 1.15 mmol/L 1.12-1.27 code = 698) PH, BLOOD (BEAKER) (test code = 7.33 1810) BLOOD GAS, [id number] 04:03:00 Test Item Value Reference Range Interpretation [...] (test code = 1819) 40.0 % PLATELET [id number] 03:58:00 Test Item Value Reference Range Interpretation Comments PLATELET COUNT (BEAKER) (test code 89 K/CU MM 150-450 L = 756) OXYGEN SATURATION, [id number] 03:57:00 Test Item Value Reference Range Interpretation Comments O2 SATURATION (MEASURED) (BEAKER) 79.4 % (test code = 1455) BLOOD GAS, [id number] 01:19:00 Test Item Value Reference Range Interpretation [...] (test code = 1819) 40.0 % GLUCOSE-STAT [id number] 01:19:00 Test Item Value Reference Range Interpretation Comments GLUCOSE RANDOM (BEAKER) (test code 177 mg/dL 70-110 H = 652) POTASSIUM-STAT [id number] 01:18:00 Test Item Value Reference Range Interpretation Comments POTASSIUM (BEAKER) (test code = 4.0 meq/L 3.6-5.5 379) CALCIUM, [id number] 01:17:00 Test Item Value Reference Range Interpretation [...] (test 0.0 % 0.0-5.0 code = 1414) [id number] 20:36:00 Test Item Value Reference Range Interpretation Comments POTASSIUM (BEAKER) (test code = 4.2 meq/L 3.5-5.1 379) [id number] 20:36:00 Test Item Value Reference Range Interpretation Comments MAGNESIUM (BEAKER) (test code = 1.8 mg/dL 1.6-2.6 627) [id number] 20:36:00 Test Item Value Reference Range Interpretation Comments PHOSPHORUS (BEAKER) (test code = 3.5 mg/dL 2.3-4.7 604) LACTIC ACID, ARTERIAL, WHOLE [id number] 20:33:00 Test Item Value Reference Range Interpretation Comments LACTATE BLOOD ARTERIAL (2) 0.8 mmol/L 0.5-2.2 (BEAKER) (test code = 2874) Effective 01/04/2016: Units/Reference Range ChangeNew: 0.5-2.2 mmol/L Previous: 5-20 mg/dLSpecimen slightly ictericBLOOD GAS, [id number] 20:20:00 Test Item Value Reference Range Interpretation [...] (test code = 1819) 40.0 % GLUCOSE-STAT [id number] 20:20:00 Test Item Value Reference Range Interpretation Comments GLUCOSE RANDOM (BEAKER) (test code 180 mg/dL 70-110 H = 652) [id number] 18:34:00 Test Item Value Reference Range Interpretation Comments GLUCOSE RANDOM (BEAKER) (test code 218 mg/dL 70-105 H = 652) BLOOD GAS, [id number] 18:18:00 Test Item Value Reference Range Interpretation [...] (BEAKER) (test code = 1819) 40.0 % [id number] 17:12:00 Test Item Value Reference Range Interpretation Comments PARTIAL THROMBOPLASTIN TIME 54.1 seconds 22.5-36.0 H (BEAKER) (test code = 760) [id number] 17:12:00 Test Item Value Reference Range Interpretation Comments FIBRINOGEN LEVEL (BEAKER) (test 285 mg/dl 225-434 code = 658) PROTHROMBIN [id number] 17:10:00 Test Item Value Reference Range Interpretation [...] ChangeNew: 0.5-2.2 mmol/L Previous: 5-20 mg/dLSpecimen slightly [id number] 17:01:00 Test Item Value Reference Range Interpretation Comments POTASSIUM (BEAKER) (test code = 4.5 meq/L 3.5-5.1 379) [id number] 17:01:00 Test Item Value Reference Range Interpretation Comments GLUCOSE RANDOM (BEAKER) (test code 239 mg/dL 70-105 H = 652) PLATELET [id number] 16:46:00 Test Item Value Reference Range Interpretation Comments PLATELET COUNT (BEAKER) (test code 86 K/CU MM 150-450 L = 756) BLOOD GAS, [id number] 16:36:00 Test Item Value Reference Range Interpretation [...] (test 37.0 C code = 1818) CALCIUM, [id number] 16:36:00 Test Item Value Reference Range Interpretation Comments CALCIUM IONIZED (BEAKER) (test 1.08 mmol/L 1.12-1.27 L code = 698) PH, BLOOD (BEAKER) (test code = 7.46 1810) [id number] 15:00:00 Test Item Value Reference Range Interpretation Comments POTASSIUM (BEAKER) (test code = 4.7 meq/L 3.5-5.1 379) [id number] 15:00:00 Test Item Value Reference Range Interpretation Comments GLUCOSE RANDOM (BEAKER) (test code 210 mg/dL 70-105 H = 652) BLOOD GAS, [id number] 14:42:00 Test Item Value Reference Range Interpretation [...] 40.0 % RAD, CHEST, 1 VIEW, NON [id number] 14:41:00Reason for exam:->chest tube insertionFINAL REPORT CHEST [...] cardiac valve is present. Signed: Kay Wilkerson Verified Date/Time: 01/12/2018 14:41:22 Reading Location: [address] Reading Room MBOELASTOGRAPH (TEG)2018-01-12 12:43:00 Test Item [...] (test 0.0 % 0.0-5.0 code = 1414) [id number] 11:23:00 Test Item Value Reference Range Interpretation [...] exclusion of thrombosis is within 95-100% range. [id number] 10:10:00 Test Item Value Reference Range Interpretation Comments MAGNESIUM (BEAKER) 2.1 mg/dL 1.6-2.6 Specimen slightly (test code = 627) hemolyzed [id number] 10:10:00 Test Item Value Reference Range Interpretation Comments PHOSPHORUS (BEAKER) 4.2 mg/dL 2.3-4.7 Specimen slightly (test code = 604) hemolyzed [id number] 10:10:00 Test Item Value Reference Range Interpretation Comments POTASSIUM (BEAKER) 5.0 meq/L 3.5-5.1 Specimen slightly (test code = 379) hemolyzed [id number] 10:10:00 Test Item Value Reference Range Interpretation Comments GLUCOSE RANDOM (BEAKER) (test code 204 mg/dL 70-105 H = 652) [id number] 10:07:00 Test Item Value Reference Range Interpretation Comments FIBRINOGEN LEVEL (BEAKER) (test 251 mg/dl 225-434 code = 658) ANTITHROMBIN [id number] 10:04:00 Test Item Value Reference Range Interpretation Comments ANTITHROMBIN III ACTIVITY (BEAKER) 46.0 % 80.0-120.0 L (test code = 711) [id number] 09:58:00 Test Item Value Reference Range Interpretation Comments PARTIAL THROMBOPLASTIN TIME 59.8 seconds 22.5-36.0 H (BEAKER) (test code = 760) PROTHROMBIN [id number] 09:57:00 Test Item Value Reference Range Interpretation Comments PROTIME (BEAKER) (test code = 19.3 seconds 11.7-14.7 H 759) INR (BEAKER) (test code = 370) 1.6 <=5.9 RECOMMENDED COUMADIN/WARFARIN INR THERAPY RANGESSTANDARD DOSE: 2.0 - 3.0 Includes: PROPHYLAXIS forvenous thrombosis, systemic embolization; TREATMENT for venous thrombosis and/or pulmonary embolus.HIGH RISK: Target INR is 2.5-3.5 for patients with mechanical heart valves.PLATELET [id number] 09:49:00 Test Item Value Reference Range Interpretation Comments PLATELET COUNT (BEAKER) (test code 94 K/CU MM 150-450 L = 756) BLOOD GAS, [id number] 09:47:00 Test Item Value Reference Range Interpretation [...] (test code = 1819) 40.0 % CALCIUM, [id number] 09:46:00 Test Item Value Reference Range Interpretation Comments CALCIUM IONIZED (BEAKER) (test 1.12 mmol/L 1.12-1.27 code = 698) PH, BLOOD (BEAKER) (test code = 7.47 1810) HEPARIN ASSAY - [id number] 08:21:00 Test Item Value Reference Range Interpretation Comments UNFRACTIONATED HEPARIN-ANTI 10A < u/ml 0.30-0.70 L (BEAKER) (test code = 1606) Recommendations for Monitoring Unfractionated Heparin Therapeutic Range: 0.3- 0.7 u/mL with continuous IV infusionLACTATE DEHYDROGENASE (LDH)2018-01-12 07:40:00 Test Item Value Reference Range Interpretation Comments LACTATE DEHYDROGENASE (BEAKER) (test 3247 U/L 125-220 H code = 635) [id number] 07:38:00 Test Item Value Reference Range Interpretation Comments MAGNESIUM (BEAKER) (test code = 2.3 mg/dL 1.6-2.6 627) [id number] 07:38:00 Test Item Value Reference Range Interpretation Comments GLUCOSE RANDOM (BEAKER) (test code 217 mg/dL 70-105 H = 652) LACTIC ACID, ARTERIAL, WHOLE [id number] 07:27:00 Test Item Value Reference Range Interpretation Comments LACTATE BLOOD ARTERIAL (2) 1.4 mmol/L 0.5-2.2 (BEAKER) (test code = 2874) Effective 01/04/2016: Units/Reference Range ChangeNew: 0.5-2.2 mmol/L Previous: 5-20 mg/dLSpecimen slightly ictericGLUCOSE-STAT [id number] 06:55:00 Test Item Value Reference Range Interpretation Comments GLUCOSE RANDOM (BEAKER) (test code 212 mg/dL 70-110 H = 652) BLOOD GAS, [id number] 06:55:00 Test Item Value Reference Range Interpretation [...] (test code = 1819) 40.0 % POTASSIUM-STAT [id number] 06:52:00 Test Item Value Reference Range Interpretation Comments POTASSIUM (BEAKER) (test code = 4.8 meq/L 3.6-5.5 379) BLOOD GAS, [id number] 06:43:00 Test Item Value Reference Range Interpretation [...] 100.0 % RAD, CHEST, 1 VIEW, NON [id number] 06:14:00Reason for exam:- >impella/ECMO/intubationShould this be performed [...] significantly changed. There is no pneumothorax. Signed: Amuta, Raz MDReport Verified Date/Time: 01/12/2018 06:14:29 Reading Location: [address] Transitional Reading Room LACTATE DEHYDROGENASE (LDH)2018-01-12 05:03:00 Test Item Value Reference Range Interpretation Comments LACTATE DEHYDROGENASE (BEAKER) (test 3014 U/L 125-220 H code = 635) HEPATIC FUNCTION [id number] 05:03:00 Test Item Value Reference Range Interpretation [...] 1544 U/L 6-55 H 347) Specimen slightly [id number] 05:01:00 Test Item Value Reference Range Interpretation Comments PHOSPHORUS (BEAKER) (test code = 5.0 mg/dL 2.3-4.7 H 604) [id number] 05:01:00 Test Item Value Reference Range Interpretation Comments MAGNESIUM (BEAKER) (test code = 2.1 mg/dL 1.6-2.6 627) [id number] 05:01:00 Test Item Value Reference Range Interpretation Comments CALCIUM (BEAKER) (test code = 697) 8.5 mg/dL 8.4-10.2 BASIC METABOLIC [id number] 05:01:00 Test Item Value Reference Range Interpretation [...] TS. Specimen slightly ictericLACTIC ACID, ARTERIAL, WHOLE [id number] 04:42:00 Test Item Value Reference Range Interpretation Comments LACTATE BLOOD ARTERIAL (2) 1.5 mmol/L 0.5-2.2 (BEAKER) (test code = 2874) Effective 01/04/2016: Units/Reference Range ChangeNew: 0.5-2.2 mmol/L Previous: 5-20 mg/dLSpecimen slightly [id number] 04:38:00 Test Item Value Reference Range Interpretation Comments FIBRINOGEN LEVEL (BEAKER) (test 252 mg/dl 225-434 code = 658) [id number] 04:38:00 Test Item Value Reference Range Interpretation Comments PARTIAL THROMBOPLASTIN TIME 54.6 seconds 22.5-36.0 H (BEAKER) (test code = 760) CBC W/PLT COUNT & AUTO [id number] 04:37:00 Test Item Value Reference Range Interpretation [...] PERCENT (BEAKER) (test code = 2801) PROTHROMBIN [id number] 04:37:00 Test Item Value Reference Range Interpretation Comments PROTIME (BEAKER) (test code = 19.9 seconds 11.7-14.7 H 759) INR (BEAKER) (test code = 370) 1.7 <=5.9 RECOMMENDED COUMADIN/WARFARIN INR THERAPY RANGESSTANDARD DOSE: 2.0 - 3.0 Includes: PROPHYLAXIS forvenous thrombosis, systemic embolization; TREATMENT for venous thrombosis and/or pulmonary embolus.HIGH RISK: Target INR is 2.5-3.5 for patients with mechanical heart valves.CALCIUM, [id number] 04:31:00 Test Item Value Reference Range Interpretation Comments CALCIUM IONIZED (BEAKER) (test 1.12 mmol/L 1.12-1.27 code = 698) PH, BLOOD (BEAKER) (test code = 7.42 1810) BLOOD GAS, [id number] 04:30:00 Test Item Value Reference Range Interpretation [...] (test code = 1819) 40.0 % PLATELET [id number] 04:23:00 Test Item Value Reference Range Interpretation Comments PLATELET COUNT (BEAKER) (test 110 K/CU MM 150-450 L code = 756) OXYGEN SATURATION, [id number] 04:14:00 Test Item Value Reference Range Interpretation Comments O2 SATURATION (MEASURED) (BEAKER) 79.7 % (test code = 1455) [id number] 02:54:00 Test Item Value Reference Range Interpretation Comments PARTIAL THROMBOPLASTIN TIME 134.3 seconds 22.5-36.0 H (BEAKER) (test code = 760) [id number] 02:25:00 Test Item Value Reference Range Interpretation Comments PARTIAL THROMBOPLASTIN TIME 94.0 seconds 22.5-36.0 H (BEAKER) (test code = 760) BLOOD GAS, [id number] 01:56:00 Test Item Value Reference Range Interpretation [...] (test code = 1819) 40.0 % GLUCOSE-STAT [id number] 01:53:00 Test Item Value Reference Range Interpretation Comments GLUCOSE RANDOM (BEAKER) (test code 201 mg/dL 70-110 H = 652) POTASSIUM-STAT [id number] 01:52:00 Test Item Value Reference Range Interpretation Comments POTASSIUM (BEAKER) (test code = 4.9 meq/L 3.6-5.5 379) LACTIC ACID, ARTERIAL, WHOLE [id number] 01:18:00 Test Item Value Reference Range Interpretation Comments LACTATE BLOOD ARTERIAL (2) 2.0 mmol/L 0.5-2.2 (BEAKER) (test code = 2874) Effective 01/04/2016: Units/Reference Range ChangeNew: 0.5-2.2 mmol/L Previous: 5-20 mg/dLSpecimen slightly [id number] 01:18:00 Test Item Value Reference Range Interpretation Comments POTASSIUM (BEAKER) (test code = 5.1 meq/L 3.5-5.1 379) [id number] 01:18:00 Test Item Value Reference Range Interpretation Comments GLUCOSE RANDOM (BEAKER) (test code 194 mg/dL 70-105 H = 652) PROTHROMBIN [id number] 01:15:00 Test Item Value Reference Range Interpretation Comments PROTIME (BEAKER) (test code = 21.2 seconds 11.7-14.7 H 759) INR (BEAKER) (test code = 370) 1.8 <=5.9 RECOMMENDED COUMADIN/WARFARIN INR THERAPY RANGESSTANDARD DOSE: 2.0 - 3.0 Includes: PROPHYLAXIS forvenous thrombosis, systemic embolization; TREATMENT for venous thrombosis and/or pulmonary embolus.HIGH RISK: Target INR is 2.5-3.5 for patients with mechanical heart valves.[id number] 01:15:00 Test Item Value Reference Range Interpretation Comments FIBRINOGEN LEVEL (BEAKER) (test 233 mg/dl 225-434 code = 658) PLATELET [id number] 01:01:00 Test Item Value Reference Range Interpretation Comments PLATELET COUNT (BEAKER) (test code 84 K/CU MM 150-450 L = 756) BLOOD GAS, [id number] 01:00:00 Test Item Value Reference Range Interpretation [...] (test code = 1819) 40.0 % CALCIUM, [id number] 01:00:00 Test Item Value Reference Range Interpretation [...] 0.0-5.0 (BEAKER) (test code = 1414) GLUCOSE-STAT [id number] 23:53:00 Test Item Value Reference Range Interpretation Comments GLUCOSE RANDOM (BEAKER) (test code 182 mg/dL 70-110 H = 652) BLOOD GAS, [id number] 23:52:00 Test Item Value Reference Range Interpretation [...] FIO2 (BEAKER) (test code = 1819) 40 [id number] 23:05:00 Test Item Value Reference Range Interpretation Comments PARTIAL THROMBOPLASTIN TIME > seconds 22.5-36.0 HH (BEAKER) (test code = 760) BLOOD GAS, [id number] 23:01:00 Test Item Value Reference Range Interpretation [...] (BEAKER) (test code = 1819) 100.0 % [id number] 22:46:00 Test Item Value Reference Range Interpretation Comments FIBRINOGEN LEVEL (BEAKER) (test 223 mg/dl 225-434 L code = 658) PROTHROMBIN [id number] 22:45:00 Test Item Value Reference Range Interpretation Comments PROTIME (BEAKER) (test code = 23.0 seconds 11.7-14.7 H 759) INR (BEAKER) (test code = 370) 2.0 <=5.9 RECOMMENDED COUMADIN/WARFARIN INR THERAPY RANGESSTANDARD DOSE: 2.0 - 3.0 Includes: PROPHYLAXIS forvenous thrombosis, systemic embolization; TREATMENT for venous thrombosis and/or pulmonary embolus.HIGH RISK: Target INR is 2.5-3.5 for patients with mechanical heart valves.BLOOD GAS, [id number] 22:22:00 Test Item Value Reference Range Interpretation [...] (test code = 1819) 40.0 % CALCIUM, [id number] 22:21:00 Test Item Value Reference Range Interpretation Comments CALCIUM IONIZED (BEAKER) (test 1.05 mmol/L 1.12-1.27 L code = 698) PH, BLOOD (BEAKER) (test code = 7.67 1810) PLATELET [id number] 22:21:00 Test Item Value Reference Range Interpretation Comments PLATELET COUNT (BEAKER) (test code 71 K/CU MM 150-450 L = 756) GLUCOSE-STAT [id number] 22:20:00 Test Item Value Reference Range Interpretation Comments GLUCOSE RANDOM (BEAKER) (test code 189 mg/dL 70-110 H = 652) POTASSIUM-STAT [id number] 22:19:00 Test Item Value Reference Range Interpretation [...] 2133 U/L 125-220 H code = 635) [id number] 20:55:00 Test Item Value Reference Range Interpretation Comments POTASSIUM (BEAKER) (test code = 5.4 meq/L 3.5-5.1 H 379) [id number] 20:55:00 Test Item Value Reference Range Interpretation Comments MAGNESIUM (BEAKER) (test code = 1.6 mg/dL 1.6-2.6 627) [id number] 20:55:00 Test Item Value Reference Range Interpretation Comments PHOSPHORUS (BEAKER) (test code = 2.9 mg/dL 2.3-4.7 604) GLUCOSE-STAT [id number] 20:31:00 Test Item Value Reference Range Interpretation Comments GLUCOSE RANDOM (BEAKER) (test code 166 mg/dL 70-110 H = 652) POTASSIUM-STAT [id number] 20:30:00 Test Item Value Reference Range Interpretation Comments POTASSIUM (BEAKER) (test code = 5.2 meq/L 3.6-5.5 379) BLOOD GAS, [id number] 20:30:00 Test Item Value Reference Range Interpretation [...] code = 1819) 40.0 % OXYGEN SATURATION, [id number] 18:46:00 Test Item Value Reference Range Interpretation Comments O2 SATURATION (MEASURED) (BEAKER) 81.5 % (test code = 1455) RAD, CHEST, 1 VIEW, NON [id number] 18:27:00Reason for exam:->impella/ECMO placementShould this be performed [...] MDReport Verified Date/Time: 01/11/2018 18:27:33 Reading Location: [address] Consult Reading Room [id number] 18:11:00 Test Item Value Reference Range Interpretation Comments PARTIAL THROMBOPLASTIN TIME > seconds 22.5-36.0 HH (BEAKER) (test code = 760) LACTATE DEHYDROGENASE (LDH)2018-01-11 18:09:00 Test Item Value Reference Range Interpretation Comments LACTATE DEHYDROGENASE 1590 U/L 125-220 H Specim en slightly (BEAKER) (test code = hemoly zed 635) BASIC METABOLIC [id number] 18:08:00 Test Item Value Reference Range Interpretation [...] S NOT APPLICABLE FOR DIALYSIS PATIEN TS. [id number] 17:54:00 Test Item Value Reference Range Interpretation Comments MAGNESIUM (BEAKER) 1.8 mg/dL 1.6-2.6 Specimen slightly (test code = 627) hemolyzed [id number] 17:54:00 Test Item Value Reference Range Interpretation Comments PHOSPHORUS (BEAKER) 4.6 mg/dL 2.3-4.7 Specimen slightly (test code = 604) hemolyzed LACTIC ACID, ARTERIAL, WHOLE [id number] 17:53:00 Test Item Value Reference Range Interpretation Comments LACTATE BLOOD 10.8 mmol/L 0.5-2.2 H Specimen sligh tly ARTERIAL (2) (BEAKER) hemoly zed (test code = 2874) Effective 01/04/2016: Units/Reference Range ChangeNew: 0.5-2.2 mmol/L Previous: 5-20 mg/[id number] 17:46:00 Test Item Value Reference Range Interpretation [...] exclusion of thrombosis is within 95-100% range. [id number] 17:46:00 Test Item Value Reference Range Interpretation Comments FIBRINOGEN LEVEL (BEAKER) (test 201 mg/dl 225-434 L code = 658) PROTHROMBIN [id number] 17:45:00 Test Item Value Reference Range Interpretation Comments PROTIME (BEAKER) (test code = 24.4 seconds 11.7-14.7 H 759) INR (BEAKER) (test code = 370) 2.2 <=5.9 RECOMMENDED COUMADIN/WARFARIN INR THERAPY RANGESSTANDARD DOSE: 2.0 - 3.0 Includes: PROPHYLAXIS forvenous thrombosis, systemic embolization; TREATMENT for venous thrombosis and/or pulmonary embolus.HIGH RISK: Target INR is 2.5-3.5 for patients with mechanical heart valves.BLOOD GAS, [id number] 17:44:00 Test Item Value Reference Range Interpretation [...] code = 1819) 40.0 % SODIUM NA-STAT [id number] 17:44:00 Test Item Value Reference Range Interpretation Comments SODIUM (BEAKER) (test code = 381) 134 meq/L 135-148 L POTASSIUM-STAT [id number] 17:44:00 Test Item Value Reference Range Interpretation Comments POTASSIUM (BEAKER) (test code = 6.2 meq/L 3.6-5.5 HH 379) GLUCOSE-STAT [id number] 17:44:00 Test Item Value Reference Range Interpretation Comments GLUCOSE RANDOM (BEAKER) (test code 147 mg/dL 70-110 H = 652) HGB/HCT (H&H) - STAT [id number] 17:44:00 Test Item Value Reference Range Interpretation Comments HEMOGLOBIN (BEAKER) (test code = 9.9 g/dL 13.0-16.8 L 410) HEMATOCRIT (BEAKER) (test code = 29.0 % 40.0-50.0 L 411) CALCIUM, [id number] 17:41:00 Test Item Value Reference Range Interpretation Comments CALCIUM IONIZED (BEAKER) (test 1.03 mmol/L 1.12-1.27 L code = 698) PH, BLOOD (BEAKER) (test code = 7.52 1810) OXYGEN SATURATION, [id number] 17:39:00 Test Item Value Reference Range Interpretation Comments O2 SATURATION (MEASURED) (BEAKER) 84.5 % (test code = 1455) CBC W/PLT COUNT & AUTO [id number] 17:37:00 Test Item Value Reference Range Interpretation [...] 0-1 PERCENT (BEAKER) (test code = 2800) [id number] 16:35:00 Test Item Value Reference Range Interpretation Comments ACTIVATED CLOTTING TIME 230 sec TEST ED AT [place] [address] ([facility]) (test code = [place] [address]) [address] [id number] 16:35:00 Test Item Value Reference Range Interpretation Comments ACTIVATED CLOTTING TIME 191 sec TEST ED AT [place] [address] ([facility]) (test code = [facility] [place] [address]) [address] BLOOD GAS, [id number] 16:20:00 Test Item Value Reference Range Interpretation [...] (test code = 1819) 100 BLOOD GAS, [id number] 16:19:00 Test Item Value Reference Range Interpretation [...] drawn from ECMO circuitLACTIC ACID, ARTERIAL, WHOLE [id number] 14:07:00 Test Item Value Reference Range Interpretation Comments LACTATE BLOOD 13.1 mmol/L 0.5-2.2 H Specimen sligh tly ARTERIAL (2) (BEAKER) hemoly zed (test code = 2874) Effective 01/04/2016: Units/Reference Range ChangeNew: 0.5-2.2 mmol/L Previous: 5-20 mg/dLPROTHROMBIN [id number] 14:01:00 Test Item Value Reference Range Interpretation Comments PROTIME (BEAKER) (test code = 20.9 seconds 11.7-14.7 H 759) INR (BEAKER) (test code = 370) 1.8 <=5.9 RECOMMENDED COUMADIN/WARFARIN INR THERAPY RANGESSTANDARD DOSE: 2.0 - 3.0 Includes: PROPHYLAXIS forvenous thrombosis, systemic embolization; TREATMENT for venous thrombosis and/or pulmonary embolus.HIGH RISK: Target INR is 2.5-3.5 for patients with mechanical heart valves.[id number] 14:01:00 Test Item Value Reference Range Interpretation Comments FIBRINOGEN LEVEL (BEAKER) (test 227 mg/dl 225-434 code = 658) PLATELET [id number] 13:54:00 Test Item Value Reference Range Interpretation Comments PLATELET COUNT (BEAKER) (test 115 K/CU MM 150-450 L code = 756) BLOOD GAS, [id number] 13:47:00 Test Item Value Reference Range Interpretation [...] (test code = 1819) 40.0 % GLUCOSE-STAT [id number] 13:47:00 Test Item Value Reference Range Interpretation Comments GLUCOSE RANDOM (BEAKER) (test code 134 mg/dL 70-110 H = 652) [id number] 12:33:00 Test Item Value Reference Range Interpretation Comments POTASSIUM (BEAKER) (test code = 5.6 meq/L 3.5-5.1 H 379) PRN - repeat glucose levels every 1 hour or as specified by insulin titration orders until glucose level is less than 450 mg/[id number] 12:33:00 Test Item Value Reference Range Interpretation Comments GLUCOSE RANDOM (BEAKER) (test code = 43 mg/dL 70-105 L 652) PRN - repeat glucose levels every 1 hour or as specified by insulin titration orders until glucose level is less than 450 mg/dLBASIC METABOLIC [id number] 11:05:00 Test Item Value Reference Range Interpretation [...] until glucose level is less than 450 mg/[id number] 11:05:00 Test Item Value Reference Range Interpretation Comments GLUCOSE RANDOM (BEAKER) (test code = 34 mg/dL 70-105 LL 652) [id number] 10:44:00 Test Item Value Reference Range Interpretation Comments POTASSIUM (BEAKER) (test code = 5.9 meq/L 3.5-5.1 H 379) HEPATIC FUNCTION [id number] 10:44:00 Test Item Value Reference Range Interpretation [...] Previous: 5-20 mg/dLCBC W/PLT COUNT & AUTO [id number] 10:23:00 Test Item Value Reference Range Interpretation [...] (BEAKER) (test code = 2801) BLOOD GAS, [id number] 10:20:00 Test Item Value Reference Range Interpretation [...] (BEAKER) (test code = 1819) 40.0 % [id number] 09:01:00 Test Item Value Reference Range Interpretation Comments POTASSIUM (BEAKER) (test code = 5.9 meq/L 3.5-5.1 H 379) PRN - repeat glucose levels every 1 hour or as specified by insulin titration orders until glucose level is less than 450 mg/[id number] 09:01:00 Test Item Value Reference Range Interpretation Comments MAGNESIUM (BEAKER) (test code = 1.7 mg/dL 1.6-2.6 627) PRN - repeat glucose levels every 1 hour or as specified by insulin titration orders until glucose level is less than 450 mg/[id number] 09:01:00 Test Item Value Reference Range Interpretation Comments PHOSPHORUS (BEAKER) (test code = 4.7 mg/dL 2.3-4.7 604) PRN - repeat glucose levels every 1 hour or as specified by insulin titration orders until glucose level is less than 450 mg/[id number] 09:01:00 Test Item Value Reference Range Interpretation Comments GLUCOSE RANDOM (BEAKER) (test code = 50 mg/dL 70-105 L 652) PRN - repeat glucose levels every 1 hour or as specified by insulin titration orders until glucose level is less than 450 mg/dLCALCIUM, [id number] 08:47:00 Test Item Value Reference Range Interpretation Comments CALCIUM IONIZED (BEAKER) (test 1.24 mmol/L 1.12-1.27 code = 698) PH, BLOOD (BEAKER) (test code = 7.31 1810) [id number] 08:45:00 Test Item Value Reference Range Interpretation Comments PARTIAL THROMBOPLASTIN TIME 53.7 seconds 22.5-36.0 H (BEAKER) (test code = 760) BLOOD GAS, [id number] 08:41:00 Test Item Value Reference Range Interpretation [...] (test code = 1819) 40.0 % PH, [id number] 08:41:00 Test Item Value Reference Range Interpretation Comments PH ARTERIAL (BEAKER) (test code = 383) 7.31 7.35-7.45 L RAD, CHEST, 1 VIEW, NON [id number] 07:31:00Reason for exam:->s/p cardiac surgeryShould this be [...] Xie MDReport VerifiedDate/Time: 01/11/2018 07:31:38 Reading Location: [facility] B1 [id number] Ortho Consult Reading Room BLOOD [...] code = 1819) 40.0 % BASIC METABOLIC [id number] 06:12:00 Test Item Value Reference Range Interpretation [...] NOT APPLICABLE FOR DIALYSIS PATIEN TS. POCT-GLUCOSE [id number] 05:58:00 Test Item Value Reference Range Interpretation Comments POC-GLUCOSE METER 121 mg/dL 70-110 H TESTED AT [facility] 67[address] (BEAKER) (test code = [place]) [address] POCT-GLUCOSE [id number] 05:58:00 Test Item Value Reference Range Interpretation Comments POC-GLUCOSE METER 66 mg/dL 70-110 L Will Repea t Test/TESTED (BEAKER) (test code = AT [facility] [address] [place] [address] [address] 0 [id number] 05:51:00 Test Item Value Reference Range Interpretation Comments PHOSPHORUS (BEAKER) (test code = 3.5 mg/dL 2.3-4.7 604) [id number] 05:51:00 Test Item Value Reference Range Interpretation Comments MAGNESIUM (BEAKER) (test code = 1.9 mg/dL 1.6-2.6 627) BLOOD GAS, [id number] 05:47:00 Test Item Value Reference Range Interpretation [...] (test code = 1819) 40.0 % POCT-GLUCOSE [id number] 05:27:00 Test Item Value Reference Range Interpretation Comments POC-GLUCOSE METER 112 mg/dL 70-110 H TESTED AT [place] [address] ([facility]) (test code = [place] [facility] 1538) [address] POCT-GLUCOSE [id number] 05:27:00 Test Item Value Reference Range Interpretation Comments POC-GLUCOSE METER 106 mg/dL 70-110 TESTED AT [place] [address] ([facility]) (test code = [place] [facility] 1538) [address] POCT-GLUCOSE [id number] 05:26:00 Test Item Value Reference Range Interpretation Comments POC-GLUCOSE METER 66 mg/dL 70-110 L TESTED AT [place] [address] ([facility]) (test code = [place] [facility] [address]38) LACTIC ACID, ARTERIAL, WHOLE [id number] 04:59:00 Test Item Value Reference Range Interpretation Comments LACTATE BLOOD 12.2 mmol/L 0.5-2.2 H Specimen sligh tly ARTERIAL (2) (BEAKER) hemoly zed (test code = 2874) Effective 01/04/2016: Units/Reference Range ChangeNew: 0.5-2.2 mmol/L Previous: 5-20 mg/dLCALCIUM, [id number] 04:57:00 Test Item Value Reference Range Interpretation Comments CALCIUM IONIZED (BEAKER) (test 1.33 mmol/L 1.12-1.27 H code = 698) PH, BLOOD (BEAKER) (test code = 7.30 1810) BLOOD GAS, [id number] 04:57:00 Test Item Value Reference Range Interpretation [...] code = 1819) 45.0 % OXYGEN SATURATION, [id number] 04:56:00 Test Item Value Reference Range Interpretation Comments O2 SATURATION (MEASURED) (BEAKER) 83.2 % (test code = 1455) CBC W/PLT COUNT & AUTO [id number] 04:56:00 Test Item Value Reference Range Interpretation [...] PERCENT (BEAKER) (test code = 2801) CALCIUM, [id number] 03:38:00 Test Item Value Reference Range Interpretation Comments CALCIUM IONIZED (BEAKER) (test 1.32 mmol/L 1.12-1.27 H code = 698) PH, BLOOD (BEAKER) (test code = 7.29 1810) BLOOD GAS, [id number] 03:36:00 Test Item Value Reference Range Interpretation [...] 1819) 50.0 % HGB/HCT (H&H) - STAT [id number] 03:36:00 Test Item Value Reference Range Interpretation Comments HEMOGLOBIN (BEAKER) (test code = 12.5 g/dL 13.0-16.8 L 410) HEMATOCRIT (BEAKER) (test code = 37.0 % 40.0-50.0 L 411) OXYGEN SATURATION, [id number] 03:35:00 Test Item Value Reference Range Interpretation Comments O2 SATURATION (MEASURED) (BEAKER) 80.3 % (test code = 1455) GLUCOSE-STAT [id number] 03:34:00 Test Item Value Reference Range Interpretation Comments GLUCOSE RANDOM (BEAKER) (test code = 91 mg/dL 70-110 652) SODIUM NA-STAT [id number] 03:34:00 Test Item Value Reference Range Interpretation Comments SODIUM (BEAKER) (test code = 381) 137 meq/L 135-148 POTASSIUM-STAT [id number] 03:34:00 Test Item Value Reference Range Interpretation Comments POTASSIUM (BEAKER) (test code = 4.6 meq/L 3.6-5.5 379) BLOOD GAS, [id number] 03:01:00 Test Item Value Reference Range Interpretation [...] 1819) 50.0 % HGB/HCT (H&H) - STAT [id number] 03:01:00 Test Item Value Reference Range Interpretation Comments HEMOGLOBIN (BEAKER) (test code = 12.0 g/dL 13.0-16.8 L 410) HEMATOCRIT (BEAKER) (test code = 35.0 % 40.0-50.0 L 411) POTASSIUM-STAT [id number] 03:00:00 Test Item Value Reference Range Interpretation Comments POTASSIUM (BEAKER) (test code = 5.0 meq/L 3.6-5.5 379) GLUCOSE-STAT [id number] 03:00:00 Test Item Value Reference Range Interpretation Comments GLUCOSE RANDOM (BEAKER) (test code 102 mg/dL 70-110 = 652) SODIUM NA-STAT [id number] 03:00:00 Test Item Value Reference Range Interpretation Comments SODIUM (BEAKER) (test code = 381) 140 meq/L 135-148 LACTIC ACID, ARTERIAL, WHOLE [id number] 01:53:00 Test Item Value Reference Range Interpretation Comments LACTATE BLOOD 9.4 mmol/L 0.5-2.2 H Specimen sligh tly ARTERIAL (2) (BEAKER) hemoly zed (test code = 2874) Effective 01/04/2016: Units/Reference Range ChangeNew: 0.5-2.2 mmol/L Previous: 5-20 mg/dLGLUCOSE-STAT [id number] 01:27:00 Test Item Value Reference Range Interpretation Comments GLUCOSE RANDOM (BEAKER) (test code = 99 mg/dL 70-110 652) BLOOD GAS, [id number] 01:27:00 Test Item Value Reference Range Interpretation [...] 1819) 100.0 % HGB/HCT (H&H) - STAT [id number] 01:27:00 Test Item Value Reference Range Interpretation Comments HEMOGLOBIN (BEAKER) (test code = 12.7 g/dL 13.0-16.8 L 410) HEMATOCRIT (BEAKER) (test code = 37.0 % 40.0-50.0 L 411) SODIUM NA-STAT [id number] 01:26:00 Test Item Value Reference Range Interpretation Comments SODIUM (BEAKER) (test code = 381) 141 meq/L 135-148 POTASSIUM-STAT [id number] 01:26:00 Test Item Value Reference Range Interpretation Comments POTASSIUM (BEAKER) (test code = 3.6 meq/L 3.6-5.5 379) [id number] 00:38:00 Test Item Value Reference Range Interpretation Comments PARTIAL THROMBOPLASTIN TIME 47.4 seconds 22.5-36.0 H (BEAKER) (test code = 760) [id number] 00:35:00 Test Item Value Reference Range Interpretation Comments POTASSIUM (BEAKER) 3.5 meq/L 3.5-5.1 Specimen slightly (test code = 379) hemolyzed CALCIUM, [id number] 00:25:00 Test Item Value Reference Range Interpretation [...] = 1414) RAD, CHEST, 1 VIEW, NON [id number] 22:36:00Reason for exam:->s/p BronchoscopyFINAL REPORT CLINICAL INDICATION: Post bronchoscopy Comparison: Same date [id number] hours There is improved aeration of the right upper lobe. No pneumothorax is present. Hazy opacity in the right upper lobe and in the retrocardiac lower lungs may reflect atelectasis but pneumonitis should be excluded clinically. The cardiomediastinal contours are stable. Support lines are stable. Signed: Kellen Parra MDReport Verified Date/Time: 01/10/2018 22:36:29 Reading Location: [address] Reading Room C METABOLIC [id number] 22:01:00 Test Item Value Reference Range Interpretation [...] S NOT APPLICABLE FOR DIALYSIS PATIEN TS. [id number] 22:00:00 Test Item Value Reference Range Interpretation Comments MAGNESIUM (BEAKER) 2.4 mg/dL 1.6-2.6 Specimen slightly (test code = 627) hemolyzed [id number] 22:00:00 Test Item Value Reference Range Interpretation Comments PHOSPHORUS (BEAKER) 3.2 mg/dL 2.3-4.7 Specimen slightly (test code = 604) hemolyzed LACTIC ACID, ARTERIAL, WHOLE [id number] 21:57:00 Test Item Value Reference Range Interpretation Comments LACTATE BLOOD 10.2 mmol/L 0.5-2.2 H Specimen sligh tly ARTERIAL (2) (BEAKER) hemoly zed (test code = 2874) Effective 01/04/2016: Units/Reference Range ChangeNew: 0.5-2.2 mmol/L Previous: 5-20 mg/dLCBC W/PLT COUNT & AUTO [id number] 21:51:00 Test Item Value Reference Range Interpretation [...] 0-1 PERCENT (BEAKER) (test code = 2801) [id number] 21:49:00 Test Item Value Reference Range Interpretation Comments PARTIAL THROMBOPLASTIN TIME 41.2 seconds 22.5-36.0 H (BEAKER) (test code = 760) PROTHROMBIN [id number] 21:48:00 Test Item Value Reference Range Interpretation Comments PROTIME (BEAKER) (test code = 19.8 seconds 11.7-14.7 H 759) INR (BEAKER) (test code = 370) 1.7 <=5.9 RECOMMENDED COUMADIN/WARFARIN INR THERAPY RANGESSTANDARD DOSE: 2.0 - 3.0 Includes: PROPHYLAXIS forvenous thrombosis, systemic embolization; TREATMENT for venous thrombosis and/or pulmonary embolus.HIGH RISK: Target INR is 2.5-3.5 for patients with mechanical heart valves.[id number] 21:48:00 Test Item Value Reference Range Interpretation Comments FIBRINOGEN LEVEL (BEAKER) (test 221 mg/dl 225-434 L code = 658) CALCIUM, [id number] 21:33:00 Test Item Value Reference Range Interpretation Comments CALCIUM IONIZED (BEAKER) (test 1.54 mmol/L 1.12-1.27 H code = 698) PH, BLOOD (BEAKER) (test code = 7.33 1810) OXYGEN SATURATION, [id number] 21:33:00 Test Item Value Reference Range Interpretation Comments O2 SATURATION (MEASURED) (BEAKER) 67.1 % (test code = 1455) GLUCOSE-STAT [id number] 21:32:00 Test Item Value Reference Range Interpretation Comments GLUCOSE RANDOM (BEAKER) (test code = 98 mg/dL 70-110 652) SODIUM NA-STAT [id number] 21:32:00 Test Item Value Reference Range Interpretation Comments SODIUM (BEAKER) (test code = 381) 139 meq/L 135-148 POTASSIUM-STAT [id number] 21:32:00 Test Item Value Reference Range Interpretation Comments POTASSIUM (BEAKER) (test code = 3.6 meq/L 3.6-5.5 379) BLOOD GAS, [id number] 21:32:00 Test Item Value Reference Range Interpretation [...] 1819) 60.0 % HGB/HCT (H&H) - STAT [id number] 21:32:00 Test Item Value Reference Range Interpretation Comments HEMOGLOBIN (BEAKER) (test code = 8.2 g/dL 13.0-16.8 L 410) HEMATOCRIT (BEAKER) (test code = 24.0 % 40.0-50.0 L 411) RAD, CHEST, 1 VIEW, NON [id number] 21:32:00Reason for exam:->s/p cardiac surgeryShould this be [...] the level of the clavicles. Right IJ Dolphin-Moni catheter terminatesin the distal right pulmonary artery. The soft tissues and osseous structures are intact. IMPRESSION: Postoperative changes with right upper lobe collapse, likely secondary to mucous plugging. Supporting lines and tubes as described above. Note position of the Dolphin-Moni catheter. Signed: Moiz Musa MDReport Verified Date/Time: 01/10/2018 21:32:31 Reading Location: [facility] [id number] Consult Reading Room THROMBOELASTOGRAPH (TEG)2018-01-10 21:01:00 [...] 55.0-65.0 L (test code = 1413) CALCIUM, [id number] 20:42:00 Test Item Value Reference Range Interpretation Comments CALCIUM IONIZED (BEAKER) (test 1.41 mmol/L 1.12-1.27 H code = 698) PH, BLOOD (BEAKER) (test code = 7.41 1810) SODIUM NA-STAT [id number] 20:41:00 Test Item Value Reference Range Interpretation Comments SODIUM (BEAKER) (test code = 381) 138 meq/L 135-148 POTASSIUM-STAT [id number] 20:41:00 Test Item Value Reference Range Interpretation Comments POTASSIUM (BEAKER) (test code = 3.7 meq/L 3.6-5.5 379) BLOOD GAS, [id number] 20:41:00 Test Item Value Reference Range Interpretation [...] (test code = 1819) 100.0 % GLUCOSE-STAT [id number] 20:41:00 Test Item Value Reference Range Interpretation Comments GLUCOSE RANDOM (BEAKER) (test code 120 mg/dL 70-110 H = 652) HGB/HCT (H&H) - STAT [id number] 20:41:00 Test Item Value Reference Range Interpretation Comments HEMOGLOBIN (BEAKER) (test code = 7.8 g/dL 13.0-16.8 L 410) HEMATOCRIT ([facility]) (test code = 23.0 % 40.0-50.0 L 411) [id number] 20:23:00 Test Item Value Reference Range Interpretation Comments FIBRINOGEN LEVEL ([facility]) (test 239 mg/dl 225-434 code = 658) [id number] 20:23:00 Test Item Value Reference Range Interpretation Comments PARTIAL THROMBOPLASTIN TIME 38.6 seconds 22.5-36.0 H ([facility]) (test code = 760) PROTHROMBIN [id number] 20:22:00 Test Item Value Reference Range Interpretation Comments PROTIME ([facility]) (test code = 21.6 seconds 11.7-14.7 H 759) INR ([facility]) (test code = 370) 1.9 <=5.9 RECOMMENDED COUMADIN/WARFARIN INR THERAPY RANGESSTANDARD DOSE: 2.0 - 3.0 Includes: PROPHYLAXIS forvenous thrombosis, systemic embolization; TREATMENT for venous thrombosis and/or pulmonary embolus.HIGH RISK: Target INR is 2.5-3.5 for patients with mechanical heart valves.[id number] 20:16:00 Test Item Value Reference Range Interpretation Comments ACTIVATED CLOTTING TIME 114 sec TEST ED AT [place] [address] ([facility]) (test code = [place] [address]) [id number] 20:16:00 Test Item Value Reference Range Interpretation Comments ACTIVATED CLOTTING TIME 499 sec TEST ED AT [place] [address] ([facility]) (test code = [place] [facility] 441) [address] [id number] 20:16:00 Test Item Value Reference Range Interpretation Comments ACTIVATED CLOTTING TIME 483 sec TEST ED AT [place] [address] ([facility]) (test code = MARIA GOSMAN [place] [address]) [address] [id number] 20:16:00 Test Item Value Reference Range Interpretation Comments ACTIVATED CLOTTING TIME 538 sec TEST ED AT [place] [address] ([facility]) (test code = [place] 441) [address] [id number] 20:16:00 Test Item Value Reference Range Interpretation Comments ACTIVATED CLOTTING TIME 615 sec TEST ED AT [place] [address] ([facility]) (test code = [place] 441) [address] [id number] 20:16:00 Test Item Value Reference Range Interpretation Comments ACTIVATED CLOTTING TIME 692 sec TEST ED AT [place] [address] ([facility]) (test code = [place] 441) [address] [id number] 20:16:00 Test Item Value Reference Range Interpretation Comments ACTIVATED CLOTTING TIME 428 sec TEST ED AT [place] [address] ([facility]) (test code = [place] 441) [address] [id number] 20:16:00 Test Item Value Reference Range Interpretation Comments ACTIVATED CLOTTING TIME 373 sec TEST ED AT [place] [address] ([facility]) (test code = [place] 441) [address] [id number] 20:16:00 Test Item Value Reference Range Interpretation Comments ACTIVATED CLOTTING TIME 455 sec TEST ED AT [place] [address] ([facility]) (test code = [place] 441) [address] [id number] 20:16:00 Test Item Value Reference Range Interpretation Comments ACTIVATED CLOTTING TIME 494 sec TEST ED AT [place] [address] ([facility]) (test code = [place] 441) [address] [id number] 20:16:00 Test Item Value Reference Range Interpretation Comments ACTIVATED CLOTTING TIME 527 sec TEST ED AT [place] [address] ([facility]) (test code = [place] 441) [address] [id number] 20:16:00 Test Item Value Reference Range Interpretation Comments ACTIVATED CLOTTING TIME 610 sec TEST ED AT [place] [address] ([facility]) (test code = [place] 441) [address] [id number] 20:16:00 Test Item Value Reference Range Interpretation Comments ACTIVATED CLOTTING TIME 576 sec TEST ED AT [place] [address] ([facility]) (test code = [place] 441) [address] [id number] 20:16:00 Test Item Value Reference Range Interpretation Comments ACTIVATED CLOTTING TIME 384 sec TEST ED AT [place] [address] ([facility]) (test code = [place] 441) [address] PLATELET [id number] 20:08:00 Test Item Value Reference Range Interpretation [...] 0.0-5.0 (BEAKER) (test code = 1414) CALCIUM, [id number] 19:59:00 Test Item Value Reference Range Interpretation Comments CALCIUM IONIZED (BEAKER) (test 1.39 mmol/L 1.12-1.27 H code = 698) PH, BLOOD (BEAKER) (test code = 7.37 1810) BLOOD GAS, [id number] 19:58:00 Test Item Value Reference Range Interpretation [...] (test code = 1819) 100.0 % GLUCOSE-STAT [id number] 19:58:00 Test Item Value Reference Range Interpretation Comments GLUCOSE RANDOM (BEAKER) (test code 143 mg/dL 70-110 H = 652) HGB/HCT (H&H) - STAT [id number] 19:58:00 Test Item Value Reference Range Interpretation Comments HEMOGLOBIN (BEAKER) (test code = 8.7 g/dL 13.0-16.8 L 410) HEMATOCRIT (BEAKER) (test code = 26.0 % 40.0-50.0 L 411) SODIUM NA-STAT [id number] 19:57:00 Test Item Value Reference Range Interpretation Comments SODIUM (BEAKER) (test code = 381) 140 meq/L 135-148 POTASSIUM-STAT [id number] 19:57:00 Test Item Value Reference Range Interpretation Comments POTASSIUM (BEAKER) (test code = 3.9 meq/L 3.6-5.5 379) [id number] 19:29:00 Test Item Value Reference Range Interpretation Comments PARTIAL THROMBOPLASTIN TIME > seconds 22.5-36.0 HH (BEAKER) (test code = 760) [id number] 19:16:00 Test Item Value Reference Range Interpretation Comments FIBRINOGEN LEVEL (BEAKER) (test 271 mg/dl 225-434 code = 658) PROTHROMBIN [id number] 19:15:00 Test Item Value Reference Range Interpretation Comments PROTIME (BEAKER) (test code = 21.3 seconds 11.7-14.7 H 759) INR (BEAKER) (test code = 370) 1.8 <=5.9 RECOMMENDED COUMADIN/WARFARIN INR THERAPY RANGESSTANDARD DOSE: 2.0 - 3.0 Includes: PROPHYLAXIS forvenous thrombosis, systemic embolization; TREATMENT for venous thrombosis and/or pulmonary embolus.HIGH RISK: Target INR is 2.5-3.5 for patients with mechanical heart valves.PLATELET [id number] 19:06:00 Test Item Value Reference Range Interpretation Comments PLATELET COUNT (BEAKER) (test code 54 K/CU MM 150-450 L = 756) BLOOD GAS, [id number] 18:49:00 Test Item Value Reference Range Interpretation [...] 1819) 100.0 % HGB/HCT (H&H) - STAT [id number] 18:44:00 Test Item Value Reference Range Interpretation Comments HEMOGLOBIN (BEAKER) (test code = 10.1 g/dL 13.0-16.8 L 410) HEMATOCRIT (BEAKER) (test code = 30.0 % 40.0-50.0 L 411) SODIUM NA-STAT [id number] 18:43:00 Test Item Value Reference Range Interpretation Comments SODIUM (BEAKER) (test code = 381) 137 meq/L 135-148 POTASSIUM-STAT [id number] 18:43:00 Test Item Value Reference Range Interpretation Comments POTASSIUM (BEAKER) (test code = 5.0 meq/L 3.6-5.5 379) GLUCOSE-STAT [id number] 18:43:00 Test Item Value Reference Range Interpretation Comments GLUCOSE RANDOM (BEAKER) (test code 187 mg/dL 70-110 H = 652) SODIUM NA-STAT [id number] 18:22:00 Test Item Value Reference Range Interpretation Comments SODIUM (BEAKER) (test code = 381) 140 meq/L 135-148 POTASSIUM-STAT [id number] 18:22:00 Test Item Value Reference Range Interpretation Comments POTASSIUM (BEAKER) (test code = 4.7 meq/L 3.6-5.5 379) BLOOD GAS, [id number] 18:22:00 Test Item Value Reference Range Interpretation [...] (test code = 1819) 60.0 % GLUCOSE-STAT [id number] 18:22:00 Test Item Value Reference Range Interpretation Comments GLUCOSE RANDOM (BEAKER) (test code 209 mg/dL 70-110 H = 652) HGB/HCT (H&H) - STAT [id number] 18:22:00 Test Item Value Reference Range Interpretation Comments HEMOGLOBIN (BEAKER) (test code = 10.2 g/dL 13.0-16.8 L 410) HEMATOCRIT (BEAKER) (test code = 30.0 % 40.0-50.0 L 411) BLOOD GAS, [id number] 17:57:00 Test Item Value Reference Range Interpretation [...] (test code = 1819) 65.0 % GLUCOSE-STAT [id number] 17:57:00 Test Item Value Reference Range Interpretation Comments GLUCOSE RANDOM (BEAKER) (test code 198 mg/dL 70-110 H = 652) HGB/HCT (H&H) - STAT [id number] 17:57:00 Test Item Value Reference Range Interpretation Comments HEMOGLOBIN (BEAKER) (test code = 10.3 g/dL 13.0-16.8 L 410) HEMATOCRIT (BEAKER) (test code = 30.0 % 40.0-50.0 L 411) SODIUM NA-STAT [id number] 17:56:00 Test Item Value Reference Range Interpretation Comments SODIUM (BEAKER) (test code = 381) 138 meq/L 135-148 POTASSIUM-STAT [id number] 17:56:00 Test Item Value Reference Range Interpretation Comments POTASSIUM (BEAKER) (test code = 4.7 meq/L 3.6-5.5 379) BLOOD GAS, [id number] 17:28:00 Test Item Value Reference Range Interpretation [...] (test code = 1819) 65.0 % GLUCOSE-STAT [id number] 17:28:00 Test Item Value Reference Range Interpretation Comments GLUCOSE RANDOM (BEAKER) (test code 223 mg/dL 70-110 H = 652) HGB/HCT (H&H) - STAT [id number] 17:28:00 Test Item Value Reference Range Interpretation Comments HEMOGLOBIN (BEAKER) (test code = 10.1 g/dL 13.0-16.8 L 410) HEMATOCRIT (BEAKER) (test code = 30.0 % 40.0-50.0 L 411) SODIUM NA-STAT [id number] 17:27:00 Test Item Value Reference Range Interpretation Comments SODIUM (BEAKER) (test code = 381) 140 meq/L 135-148 POTASSIUM-STAT [id number] 17:27:00 Test Item Value Reference Range Interpretation [...] code = 1414) HGB/HCT (H&H) - STAT [id number] 17:01:00 Test Item Value Reference Range Interpretation Comments HEMOGLOBIN (BEAKER) (test code = 10.1 g/dL 13.0-16.8 L 410) HEMATOCRIT (BEAKER) (test code = 30.0 % 40.0-50.0 L 411) BLOOD GAS, [id number] 17:00:00 Test Item Value Reference Range Interpretation [...] (test code = 1819) 65.0 % GLUCOSE-STAT [id number] 17:00:00 Test Item Value Reference Range Interpretation Comments GLUCOSE RANDOM (BEAKER) (test code 243 mg/dL 70-110 H = 652) SODIUM NA-STAT [id number] 16:59:00 Test Item Value Reference Range Interpretation Comments SODIUM (BEAKER) (test code = 381) 139 meq/L 135-148 POTASSIUM-STAT [id number] 16:59:00 Test Item Value Reference Range Interpretation Comments POTASSIUM (BEAKER) (test code = 4.6 meq/L 3.6-5.5 379) [id number] 16:47:00 Test Item Value Reference Range Interpretation Comments PARTIAL THROMBOPLASTIN TIME > seconds 22.5-36.0 HH (BEAKER) (test code = 760) BLOOD GAS, [id number] 16:18:00 Test Item Value Reference Range Interpretation [...] (test code = 1819) 65.0 % GLUCOSE-STAT [id number] 16:18:00 Test Item Value Reference Range Interpretation Comments GLUCOSE RANDOM (BEAKER) (test code 279 mg/dL 70-110 H = 652) HGB/HCT (H&H) - STAT [id number] 16:18:00 Test Item Value Reference Range Interpretation Comments HEMOGLOBIN (BEAKER) (test code = 7.0 g/dL 13.0-16.8 L 410) HEMATOCRIT (BEAKER) (test code = 21.0 % 40.0-50.0 L 411) SODIUM NA-STAT [id number] 16:17:00 Test Item Value Reference Range Interpretation Comments SODIUM (BEAKER) (test code = 381) 137 meq/L 135-148 POTASSIUM-STAT [id number] 16:17:00 Test Item Value Reference Range Interpretation Comments POTASSIUM (BEAKER) (test code = 4.6 meq/L 3.6-5.5 379) [id number] 16:15:00 Test Item Value Reference Range Interpretation Comments FIBRINOGEN LEVEL (BEAKER) (test 255 mg/dl 225-434 code = 658) PROTHROMBIN [id number] 16:14:00 Test Item Value Reference Range Interpretation Comments PROTIME (BEAKER) (test code = 20.2 seconds 11.7-14.7 H 759) INR (BEAKER) (test code = 370) 1.7 <=5.9 RECOMMENDED COUMADIN/WARFARIN INR THERAPY RANGESSTANDARD DOSE: 2.0 - 3.0 Includes: PROPHYLAXIS forvenous thrombosis, systemic embolization; TREATMENT for venous thrombosis and/or pulmonary embolus.HIGH RISK: Target INR is 2.5-3.5 for patients with mechanical heart valves.PLATELET [id number] 16:02:00 Test Item Value Reference Range Interpretation Comments PLATELET COUNT (BEAKER) (test code 57 K/CU MM 150-450 L = 756) CALCIUM, [id number] 15:51:00 Test Item Value Reference Range Interpretation Comments CALCIUM IONIZED (BEAKER) (test 0.82 mmol/L 1.12-1.27 L code = 698) PH, BLOOD (BEAKER) (test code = 7.45 1810) BLOOD GAS, [id number] 15:51:00 Test Item Value Reference Range Interpretation [...] (test code = 1819) 100.0 % GLUCOSE-STAT [id number] 15:51:00 Test Item Value Reference Range Interpretation Comments GLUCOSE RANDOM (BEAKER) (test code 190 mg/dL 70-110 H = 652) HGB/HCT (H&H) - STAT [id number] 15:51:00 Test Item Value Reference Range Interpretation Comments HEMOGLOBIN (BEAKER) (test code = 7.6 g/dL 13.0-16.8 L 410) HEMATOCRIT (BEAKER) (test code = 22.0 % 40.0-50.0 L 411) POTASSIUM-STAT [id number] 15:51:00 Test Item Value Reference Range Interpretation Comments POTASSIUM (BEAKER) (test code = 5.6 meq/L 3.6-5.5 H 379) SODIUM NA-STAT [id number] 15:50:00 Test Item Value Reference Range Interpretation Comments SODIUM (BEAKER) (test code = 381) 139 meq/L 135-148 BLOOD GAS, [id number] 15:43:00 Test Item Value Reference Range Interpretation [...] (test code = 1819) 75.0 % GLUCOSE-STAT [id number] 15:43:00 Test Item Value Reference Range Interpretation Comments GLUCOSE RANDOM (BEAKER) (test code 189 mg/dL 70-110 H = 652) HGB/HCT (H&H) - STAT 15:43:00 Test Item Value Reference Range Interpretation Comments HEMOGLOBIN (BEAKER) (test code = 8.0 g/dL 13.0-16.8 L 410) HEMATOCRIT (BEAKER) (test code = 24.0 % 40.0-50.0 L 411) POTASSIUM-STAT [id number] 15:43:00 Test Item Value Reference Range Interpretation Comments POTASSIUM (BEAKER) (test code = 5.7 meq/L 3.6-5.5 H 379) SODIUM NA-STAT [id number] 15:42:00 Test Item Value Reference Range Interpretation Comments SODIUM (BEAKER) (test code = 381) 136 meq/L 135-148 SODIUM NA-STAT [id number] 15:06:00 Test Item Value Reference Range Interpretation Comments SODIUM (BEAKER) (test code = 381) 139 meq/L 135-148 BLOOD GAS, [id number] 15:06:00 Test Item Value Reference Range Interpretation [...] (test code = 1819) 60.0 % POTASSIUM-STAT [id number] 15:06:00 Test Item Value Reference Range Interpretation Comments POTASSIUM (BEAKER) (test code = 5.8 meq/L 3.6-5.5 H 379) GLUCOSE-STAT [id number] 15:06:00 Test Item Value Reference Range Interpretation Comments GLUCOSE RANDOM (BEAKER) (test code 192 mg/dL 70-110 H = 652) HGB/HCT (H&H) - STAT [id number] 15:06:00 Test Item Value Reference Range Interpretation Comments HEMOGLOBIN (BEAKER) (test code = 8.2 g/dL 13.0-16.8 L 410) HEMATOCRIT (BEAKER) (test code = 24.0 % 40.0-50.0 L 411) POTASSIUM-STAT [id number] 14:41:00 Test Item Value Reference Range Interpretation Comments POTASSIUM (BEAKER) (test code = 5.2 meq/L 3.6-5.5 379) BLOOD GAS, [id number] 14:41:00 Test Item Value Reference Range Interpretation [...] code = 1819) 60.0 % SODIUM NA-STAT [id number] 14:41:00 Test Item Value Reference Range Interpretation Comments SODIUM (BEAKER) (test code = 381) 134 meq/L 135-148 L GLUCOSE-STAT [id number] 14:41:00 Test Item Value Reference Range Interpretation Comments GLUCOSE RANDOM (BEAKER) (test code 195 mg/dL 70-110 H = 652) HGB/HCT (H&H) - STAT [id number] 14:41:00 Test Item Value Reference Range Interpretation Comments HEMOGLOBIN (BEAKER) (test code = 8.2 g/dL 13.0-16.8 L 410) HEMATOCRIT (BEAKER) (test code = 24.0 % 40.0-50.0 L 411) BLOOD GAS, [id number] 14:10:00 Test Item Value Reference Range Interpretation [...] (test code = 1819) 60.0 % GLUCOSE-STAT [id number] 14:10:00 Test Item Value Reference Range Interpretation Comments GLUCOSE RANDOM (BEAKER) (test code 177 mg/dL 70-110 H = 652) HGB/HCT (H&H) - STAT [id number] 14:10:00 Test Item Value Reference Range Interpretation Comments HEMOGLOBIN (BEAKER) (test code = 8.5 g/dL 13.0-16.8 L 410) HEMATOCRIT (BEAKER) (test code = 25.0 % 40.0-50.0 L 411) SODIUM NA-STAT [id number] 14:09:00 Test Item Value Reference Range Interpretation Comments SODIUM (BEAKER) (test code = 381) 136 meq/L 135-148 POTASSIUM-STAT [id number] 14:09:00 Test Item Value Reference Range Interpretation Comments POTASSIUM (BEAKER) (test code = 5.0 meq/L 3.6-5.5 379) SODIUM NA-STAT [id number] 13:39:00 Test Item Value Reference Range Interpretation Comments SODIUM (BEAKER) (test code = 381) 136 meq/L 135-148 POTASSIUM-STAT [id number] 13:39:00 Test Item Value Reference Range Interpretation Comments POTASSIUM (BEAKER) (test code = 5.0 meq/L 3.6-5.5 379) BLOOD GAS, [id number] 13:39:00 Test Item Value Reference Range Interpretation [...] (test code = 1819) 60.0 % GLUCOSE-STAT [id number] 13:39:00 Test Item Value Reference Range Interpretation Comments GLUCOSE RANDOM (BEAKER) (test code 179 mg/dL 70-110 H = 652) HGB/HCT (H&H) - STAT [id number] 13:39:00 Test Item Value Reference Range Interpretation Comments HEMOGLOBIN (BEAKER) (test code = 8.1 g/dL 13.0-16.8 L 410) HEMATOCRIT (BEAKER) (test code = 24.0 % 40.0-50.0 L 411) CALCIUM, [id number] 12:31:00 Test Item Value Reference Range Interpretation Comments CALCIUM IONIZED (BEAKER) (test 1.09 mmol/L 1.12-1.27 L code = 698) PH, BLOOD (BEAKER) (test code = 7.45 1810) GLUCOSE-STAT [id number] 12:30:00 Test Item Value Reference Range Interpretation Comments GLUCOSE RANDOM (BEAKER) (test code = 93 mg/dL 70-110 652) SODIUM NA-STAT [id number] 12:30:00 Test Item Value Reference Range Interpretation Comments SODIUM (BEAKER) (test code = 381) 140 meq/L 135-148 POTASSIUM-STAT [id number] 12:30:00 Test Item Value Reference Range Interpretation Comments POTASSIUM (BEAKER) (test code = 3.9 meq/L 3.6-5.5 379) BLOOD GAS, [id number] 12:30:00 Test Item Value Reference Range Interpretation Comments PH ARTERIAL (BEAKER) (test code = 7.48 7.35-7.45 H 383) PCO2 ARTERIAL (BEAKER) (test code 39 mmHg 35-45 = 384) PO2 ARTERIAL (BEAKER) (test code = 128 mmHg 80-90 H 385) O2 SATURATION ARTERIAL (BEAKER) 98.9 % 96.0-97.0 H (test code = 386) HCO3 ARTERIAL (BEAKER) (test code 29 mmol/L -29 = 388) BASE EXCESS ARTERIAL (BEAKER) 4.1 mmol/L -2.0-3.0 H (test code = 387) PATIENT TEMPERATURE (BEAKER) (test 35.0 C code = 1818) FIO2 (BEAKER) (test code = 1819) 100.0 % HGB/HCT (H&H) - STAT [id number] 12:30:00 Test Item Value Reference Range Interpretation Comments HEMOGLOBIN (BEAKER) (test code = 9.3 g/dL 13.0-16.8 L 410) HEMATOCRIT (BEAKER) (test code = 27.0 % 40.0-50.0 L 411) HEMOGLOBIN [id number] 10:02:00 Test Item Value Reference Range Interpretation Comments HEMOGLOBIN A1C (BEAKER) (test code = 4.4 % 4.3-6.1 368) POCT-GLUCOSE [id number] 09:52:00 Test Item Value Reference Range Interpretation Comments POC-GLUCOSE METER 115 mg/dL 70-110 H TESTED AT [facility] 67[address] (BEAKER) (test code = [place] [facility] 1538) [id number] PROTHROMBIN [id number] 02:41:00 Test Item Value Reference Range Interpretation Comments PROTIME (BEAKER) (test code = 14.9 seconds 11.7-14.7 H 759) INR (BEAKER) (test code = 370) 1.2 <=5.9 RECOMMENDED COUMADIN/WARFARIN INR THERAPY RANGESSTANDARD DOSE: 2.0 - 3.0 Includes: PROPHYLAXIS forvenous thrombosis, systemic embolization; TREATMENT for venous thrombosis and/or pulmonary embolus.HIGH RISK: Target INR is 2.5-3.5 for patients with mechanical heart valves.BASIC METABOLIC [id number] 00:29:00 Test Item Value Reference Range Interpretation [...] S NOT APPLICABLE FOR DIALYSIS PATIEN TS. [id number] 00:22:00 Test Item Value Reference Range Interpretation Comments MAGNESIUM (BEAKER) 2.5 mg/dL 1.6-2.6 Specimen slightly (test code = 627) hemolyzed [id number] 00:14:00 Test Item Value Reference Range Interpretation Comments PARTIAL THROMBOPLASTIN TIME 38.6 seconds 22.5-36.0 H (BEAKER) (test code = 760) CBC W/PLT COUNT & AUTO [id number] 00:07:00 Test Item Value Reference Range Interpretation [...] 0-1 PERCENT (BEAKER) (test code = 2801) [id number] 17:03:00 Test Item Value Reference Range Interpretation Comments THYROID STIMULATING HORMONE 1.30 uIU/mL 0.35-4.94 (BEAKER) (test code = 772) HEPATIC FUNCTION [id number] 16:43:00 Test Item Value Reference Range Interpretation [...] 69 U/L 6-55 H 347) BASIC METABOLIC [id number] 15:47:00 Test Item Value Reference Range Interpretation [...] S NOT APPLICABLE FOR DIALYSIS PATIEN TS. [id number] 14:57:00 Test Item Value Reference Range Interpretation Comments PARTIAL THROMBOPLASTIN TIME 82.9 seconds 22.5-36.0 H (BEAKER) (test code = 760) CBC W/PLT COUNT & AUTO [id number] 14:48:00 Test Item Value Reference Range Interpretation [...] PERCENT (BEAKER) (test code = 2801) POCT-GLUCOSE [id number] 11:13:00 Test Item Value Reference Range Interpretation Comments POC-GLUCOSE METER 207 mg/dL 70-110 H [facility] [place] [address] [facility] (test code = [place] 1538) [id number] POCT-GLUCOSE [id number] 08:08:00 Test Item Value Reference Range Interpretation Comments POC-GLUCOSE METER 124 mg/dL 70-110 H TESTED AT [facility] (test code = [place] 1538) [id number] 06:51:00 Test Item Value Reference Range Interpretation Comments PARTIAL THROMBOPLASTIN TIME 54.6 seconds 22.5-36.0 H (BEAKER) (test code = 760) HEPATITIS B SURFACE [id number] 00:28:00 Test Item Value Reference Range Interpretation Comments HEPATITIS B SURFACE ANTIGEN (2) Nonreactive Nonreactive (BEAKER) (test code = 2585) [id number] 00:06:00 Test Item Value Reference Range Interpretation Comments PHOSPHORUS (BEAKER) (test code = 3.2 mg/dL 2.3-4.7 604) [id number] 00:03:00 Test Item Value Reference Range Interpretation Comments PARTIAL THROMBOPLASTIN TIME 36.0 seconds 22.5-36.0 (BEAKER) (test code = 760) CBC W/PLT COUNT & AUTO [id number] 23:45:00 Test Item Value Reference Range Interpretation [...] PERCENT (BEAKER) (test code = 2801) POCT-GLUCOSE [id number] 17:39:00 Test Item Value Reference Range Interpretation Comments POC-GLUCOSE METER 116 mg/dL 70-110 H TESTED AT [facility] ([facility] [place]) (test code = [place] 1538) [address] [id number] 15:35:00 Test Item Value Reference Range Interpretation Comments THYROID STIMULATING HORMONE 1.39 uIU/mL 0.35-4.94 (AKER) (test code = 772) [id number] 15:06:00 Test Item Value Reference Range Interpretation Comments PARTIAL THROMBOPLASTIN TIME 31.0 seconds 22.5-36.0 (AKER) (test code = 760) Prior to initiating heparinPROTHROMBIN [id number] 15:05:00 Test Item Value Reference Range Interpretation Comments PROTIME (BEAKER) (test code = 14.4 seconds 11.7-14.7 759) INR ([facility]) (test code = 370) 1.1 <=5.9 RECOMMENDED COUMADIN/WARFARIN INR THERAPY RANGESSTANDARD DOSE: 2.0 - 3.0 Includes: PROPHYLAXIS forvenous thrombosis, systemic embolization; TREATMENT for venous thrombosis and/or pulmonary embolus.HIGH RISK: Target INR is 2.5-3.5 for patients with mechanical heart valves.PLATELET [id number] 14:52:00 Test Item Value Reference Range Interpretation Comments PLATELET COUNT (BEAKER) (test 109 K/CU MM 150-450 L code = 756) POCT-GLUCOSE [id number] 12:00:00 Test Item Value Reference Range Interpretation Comments POC-GLUCOSE METER 186 mg/dL 70-110 H TESTED AT [facility] 6720 (JARROD) (test code = [place] 1538) [address] RAD, CHEST, 1 VIEW, NON [id number] 11:43:00Reason for exam:->SOB, known severe MRShould this be performed at the bedside?->YesFINAL REPORT Chest one view AP 01/08/2018 11:42 AM CLINICAL INDICATION: SOB, kno wn severe MR COMPARISON: 12/02/2017 IMPRESSION: Cardiomediastinal contours are stable. There is mild pulmonary edema. There are trace bilateral pleural effusions. Signed: Yevgeniy Anderson Verified Date/Time: 01/08/2018 11:43:52 Reading Location: [facility] Radiology Reading Room Electronic ally signed by: YEVGENIY ANDERSON M.D. on 01/08/2018 11:43 AMRAPID CK-MB 2017-12-02 10:04:00 Test Item Value Reference Range Interpretation Comments RAPID CKMB (JARROD) (test code = 1.5 ng/mL 0.0-4.3 1482) RAPID TROPONIN [id number] 10:04:00 Test Item Value Reference Range Interpretation Comments RAPID TROPONIN I (JARROD) (test code < ng/mL <0.05 = 1483) RAD, CHEST, 2 [id number] 10:00:00Reason for exam:->Chest PainFINAL REPORT Chest two views Discussion: Heart size upper limits of normal. Bilateral interstitial edema with small bilateral effusions. No pneumothorax. Bones and soft tissues unremarkable. Signed: Rhea Colindres Verified Date/Time: 12/02/2017 10:00:39 Reading Location:[facility] Radiology Reading Room B-TYPE NATRIURETIC FACTOR (BNP)2017-12-02 09:56:00 Test Item Value Reference Range Interpretation Comments B-TYPE NATRIURETIC PEPTIDE 1990 pg/mL 0-100 H (BEAKER) (test code = 700) BASIC METABOLIC [id number] 09:52:00 Test Item Value Reference Range Interpretation [...] S NOT APPLICABLE FOR DIALYSIS PATIEN TS. [id number] 09:51:00 Test Item Value Reference Range Interpretation Comments MAGNESIUM (BEAKER) (test code = 1.7 mg/dL 1.5-3.0 627) CBC W/PLT COUNT & AUTO [id number] 09:50:00 Test Item Value Reference Range Interpretation [...] (BEAKER) (test code = 417) CD4/CD8 Ratio [id number] 08:04:00 Test Item Value Reference Range Interpretation Comments Absolute CD 4 [place] (test code 188 /uL 359-1519 L = 013504) % CD 4 Pos. Lymph. (test code = 37.6 % 30.8-58.5 N 556711) Abs. CD 8 Suppressor (test code 183 /uL 109-897 N = 727691) % CD 8 Pos. Lymph. (test code = 36.6 % 12.0-35.5 H 164329) CD4/CD8 Ratio (test code = 1.03 0.92-3.72 N 655142) WBC (test code = 543299) 5.0 x10E3/uL 3.4-10.8 N RBC (test code = 113376) 3.00 x10E6/uL 4.14-5.80 L Hemoglobin (test code = 622786) 9.6 g/dL 13.0-17.7 L Hematocrit (test code = 991934) 27.6 % 37.5-51.0 L MCV (test code = 441573) 92 fL 79-97 N MCH (test code = 403015) 32.0 pg 26.6-33.0 N MCHC (test code = 646157) 34.8 g/dL 31.5-35.7 N RDW (test code = 866874) 15.5 % 12.3-15.4 H Platelets (test code = 232683) 113 x10E3/uL 150-379 L Neutrophils (test code = 84 % Not Estab. N 377068) Lymphs (test code = 347144) 9 % Not Estab. N Monocytes (test code = 046935) 6 % Not Estab. N Eos (test code = 634064) 1 % Not Estab. N Basos (test code = 515078) 0 % Not Estab. N Neutrophils (Absolute) (test 4.2 x10E3/uL 1.4-7.0 N code = 440478) Lymphs (Absolute) (test code = 0.5 x10E3/uL 0.7-3.1 L 065622) Monocytes(Absolute) (test code 0.3 x10E3/uL 0.1-0.9 N = 520135) Eos (Absolute) (test code = 0.0 x10E3/uL 0.0-0.4 N 766998) Baso (Absolute) (test code = 0.0 x10E3/uL 0.0-0.2 N 166181) Immature Granulocytes (test 0 % Not Estab. N code = 642565) Immature Grans (Abs) (test code 0.0 x10E3/uL 0.0-0.1 N = 279652) Culture, Blood [id number] 08:42:00Specimen: BloodCollected: 11/19/2017 00:21 Status: Final Last Updated: 11/24/2017 08:42 Culture Result (Final) (Final) No Growth After 5 DaysCulture, Blood [id number] 08:42:00 Specimen: BloodCollected: 11/18/2017 20:30 Status: Final Last Updated: 11/24/2017 08:42 Culture Result (Final) (Final) No Growth After 5 DaysPOC Glucose, [id number] 11:51:00 Test Item Value Reference Range Interpretation Comments POC Glucose (test 148 mg/dL 70-115 H Notify RN or MDIf you code = POCGLUC) consider you r patient critically ill, the [facility] Accu-Chek InformII metershould not be used for Glucose determinations. Draw a venous Glucose and send to the Main Lab for Analysis. CK [id number] 07:42:00 Test Item Value Reference Range Interpretation Comments CK (test code = CK) na U/L 39-308 N CKMB (test code = CKMB) 4.0 ng/mL 0.0-4.9 N CKMB% (test code = CKMBP) 0.0 % 0.0-3.4 N Pwy-[id number] 07:39:00 Test Item Value Reference Range Interpretation Comments NT ProBnp (test code = PBNP) >89559 pg/mL 0-124 H Troponin [id number] 07:18:00 Test Item Value Reference Range Interpretation Comments Troponin T (test code = MADHAV) 0.103 ng/mL 0.000-0.090 H Lactate [id number] 07:18:00 Test Item Value Reference Range Interpretation Comments LDH (test code = LDH) 271 U/L 135-225 H POC Glucose, [id number] 06:50:00 Test Item Value Reference Range Interpretation Comments POC Glucose (test 154 mg/dL 70-115 H Notify RN or MDIf you code = POCGLUC) consider you r patient critically ill, the [facility] Accu-Chek InformII metershould not be used for Glucose determinations. Draw a venous Glucose and send to the Main Lab for Analysis. CK [id number] 01:08:00 Test Item Value Reference Range Interpretation Comments CK (test code = CK) na U/L 39-308 N CKMB (test code = CKMB) 3.6 ng/mL 0.0-4.9 N CKMB% (test code = CKMBP) 0.0 % 0.0-3.4 N Troponin [id number] 01:08:00 Test Item Value Reference Range Interpretation Comments Troponin T (test code = MADHAV) 0.106 ng/mL 0.000-0.090 H XR CHEST 1 [id number] 21:02:01CLINICAL INFORMATION: Vascular congestion.Dictation Location: R 16Comparison: 11/18/2017 showed perihilar and lower lobe opacities. Technique: Portable AP 1950 hoursFINDINGS: Monitoring electrodes overlie the chest wall. Cardiomegaly withincreasing central vascular interstitial prominence with bibasilaropacities and effusions. No interval bone changes.IMPRESSION: Changes could indicate worsening cardiac decompensation orfluid overload.POC Glucose, [id number] 20:15:00 Test Item Value Reference Range Interpretation Comments POC Glucose (test 139 mg/dL 70-115 H If you con visual inspector your code = POCGLUC) patient crit ically ill, the [facility]eline Accu- Chek InformII meters hould not be used for Glu cose determinations. Draw a venous Glucose and send to the Main Lab for Analysis. POC Glucose, [id number] 16:52:00 Test Item Value Reference Range Interpretation Comments POC Glucose (test 123 mg/dL 70-115 H If you con visual inspector your code = POCGLUC) patient crit ically ill, the [place]eline Accu- Chek InformII meters hould not be used for Glu cose determinations. Draw a venous Glucose and send to the Main Lab for Analysis. POC Glucose, [id number] 12:04:00 Test Item Value Reference Range Interpretation Comments POC Glucose (test 140 mg/dL 70-115 H If you con visual inspector your code = POCGLUC) patient crit ically ill, the [facility]eline Accu- Chek InformII meters hould not be used for Glu cose determinations. Draw a venous Glucose and send to the Main Lab for Analysis. POC Glucose, [id number] 08:01:00 Test Item Value Reference Range Interpretation Comments POC Glucose (test 126 mg/dL 70-115 H If you con visual inspector your code = POCGLUC) patient crit ically ill, the Madeline Accu- Chek InformII meters hould not be used for Glu cose determinations. Draw a venous Glucose and send to the Main Lab for Analysis. CK [id number] 06:03:00 Test Item Value Reference Range Interpretation Comments CK (test code = CK) na U/L 39-308 N CKMB (test code = CKMB) 2.8 ng/mL 0.0-4.9 N CKMB% (test code = CKMBP) 0.0 % 0.0-3.4 N Basic Metabolic [id number] 05:51:00 Test Item Value Reference Range Interpretation [...] validated by th e MDRD study and viktorul d be interpretedwith caution.eGFR Re sult Interpretation: eGFR > or = 60 is in t he Normal RangeeGF R < 60 may mean kidney diseaseeGFR < 1 5 may mean kidney failureRange s recommended by the National Kidney Foundation,http ://nkd ep.nih.gov Magnesium, [id number] 05:51:00 Test Item Value Reference Range Interpretation Comments Magnesium (test code = MG) 1.9 mg/dL 1.7-2.5 N [id number] 05:51:00 Test Item Value Reference Range Interpretation Comments Phosphorus (test code = PO4) 3.8 mg/dL 2.70-4.50 N Hvr-[id number] 05:51:00 Test Item Value Reference Range Interpretation Comments NT ProBnp (test code = PBNP) >88565 pg/mL 0-124 H Troponin [id number] 05:51:00 Test Item Value Reference Range Interpretation Comments Troponin T (test code = MADHAV) 0.126 ng/mL 0.000-0.090 H CBC with [id number] 05:34:00 Test Item Value Reference Range Interpretation [...] code = ALYMPH) 0.4 K/cumm 0.5-4.6 L [place] Abs (test code = AMONO) 0.6 K/cumm 0.0-1.2 N Eos Abs (test code = AEOS) 0.13 K/cumm 0.00-0.74 N Baso Abs (test code = ABASO) 0.0 K/cumm 0.00-0.21 N CK [id number] 18:39:00 Test Item Value Reference Range Interpretation Comments CK (test code = CK) HIDE U/L 39-308 N CKMB (test code = CKMB) 3.2 ng/mL 0.0-4.9 N CKMB% (test code = CKMBP) HIDE % 0.0-3.4 N Troponin [id number] 18:39:00 Test Item Value Reference Range Interpretation Comments Troponin T (test code = MADHAV) 0.126 ng/mL 0.000-0.090 H Hep B Surface [id number] 18:39:00 Test Item Value Reference Range Interpretation Comments Hep Bs Ag (test code = HBSAG) Nonreactive Non-Reactive A POC Glucose, [id number] 16:47:00 Test Item Value Reference Range Interpretation Comments POC Glucose (test 143 mg/dL 70-115 H If you con visual inspector your code = POCGLUC) patient crit ically ill, the [facility] Accu- Chek InformII meters hould not be used for Glu cose determinations. Draw a venous Glucose and send to the Main Lab for Analysis. XR CHEST 1 [id number] 08:18:18EXAM: Portable AP chest x-rayLOCATION: R16 INDICATION: CoughCOMPARISON: 11/07/2017FINDINGS:The cardiacsilhouette is stable enlargement. There are increasinginterstitial opacities, most evident in the per ihilar regions and lowerlobes. There is blunting of the costophrenic angles bilaterally. Thereis no discernible pneumothorax.IMPRESSION:Increasing perihilar and bilateral lower lobe opacities compared to theprior exam dated 11/07/2017. Findings may represent pulmonary edema orpneumonia in the appropriate clinical setting.Comprehensive Metabolic [id number] 08:05:00 Test Item Value Reference Range Interpretation [...] the National Kidney Foundation,http ://nkd ep.nih.gov CK [id number] 08:05:00 Test Item Value Reference Range Interpretation Comments CK (test code = CK) 149 U/L 39-308 N Troponin [id number] 08:02:00 Test Item Value Reference Range Interpretation Comments Troponin T (test code = MADHAV) 0.114 ng/mL 0.000-0.090 H Ndt-[id number] 08:02:00 Test Item Value Reference Range Interpretation Comments NT ProBnp (test code = PBNP) >39028 pg/mL 0-124 H CBC with [id number] 07:53:00 Test Item Value Reference Range Interpretation [...] code = ALYMPH) 0.9 K/cumm 0.5-4.6 N [place] Abs (test code = AMONO) 0.4 K/cumm 0.0-1.2 N Eos Abs (test code = AEOS) 0.11 K/cumm 0.00-0.74 N Baso Abs (test code = ABASO) 0.0 K/cumm 0.00-0.21 N XR CHEST 1 [id number] 21:38:09EXAM: CHEST ONE VIEWINDICATION: CoughCOMPARISON: October 06, 2017TECHNIQUE: AP view of the chest.FINDINGS: The cardiomediastinal silhouette is unchanged. Mild congestive changesbilaterally. No pneumothorax or pleural effusion is identified. Theosseous structures are unremarkable.IMPRESSION: Diffuse congestive changes bilaterally.LOCATION: R16US DUPLX EXT VEINS COMPR, [id number] 20:09:34AFTER HOURS SERVICE ON: 10/06/2017 8:09 PMRIGHT Lower Extremity Venous Duplex Doppler ExaminationLocation Code U24Nxbqhcy: SwellingTechnique: Real-time castillo scale, Doppler spectral analysis [...] Lower Extremity Venous Duplex Doppler ExaminationLocation Code C38Zqpjp ry: SwellingTechnique: Real-time castillo scale, Doppler spectral [...] of DVT in the imaged vessels.Comprehensive Metabolic [id number] 17:40:00 Test Item Value Reference Range Interpretation [...] National Kidney Foundation,http ://nkd ep.nih.gov CBC with [id number] 17:15:00 Test Item Value Reference Range Interpretation [...] code = ALYMPH) 1.3 K/cumm 0.5-4.6 N [place] Abs (test code = AMONO) 0.6 K/cumm 0.0-1.2 N Eos Abs (test code = AEOS) 0.12 K/cumm 0.00-0.74 N Baso Abs (test code = ABASO) 0.0 K/cumm 0.00-0.21 N XR CHEST 1 [id number] 16:56:42CHEST 1 VIEW: [id number]: coughCOMPARISON:Sep 24, 2017FINDINGS:The heart is enlarged. There is engorgement of the central pulmonaryvasculature. There are patchy bibasilar areas of infiltrate oratelectasis with bilateral effusions. No pneumothorax is present. IMPRESSION: 1. Patchy areas of atelectasis or infiltrate in the lung bases withsmall bilateral effusions and vascular congestion most likely secondaryto CHF.Culture, Blood [id number] 14:58:00Specimen: BloodCollected: 09/24/2017 13:05 Status: Final Last Updated: 09/29/2017 14:58 (1) ER Bed 1 Culture Result (Final) (Final) No Growth After 5 DaysCulture, Blood [id number] 14:58:00Specimen: BloodCollected: 09/24/2017 12:50 Status: Final Last Updated: 09/29/2017 14:58 (1) ER Bed 1 Culture Result (Final) (Final) No Growth After 5 DaysPOC Glucose, [id number] 10:54:00 Test Item Value Reference Range Interpretation Comments POC Glucose (test 168 mg/dL 70-115 H If you con visual inspector your code = POCGLUC) patient crit ically ill, the [facility] Accu- Chek InformII meters hould not be used for Glu cose determinations. Draw a venous Glucose and send to the Main Lab for Analysis. POC Glucose, [id number] 07:16:00 Test Item Value Reference Range Interpretation Comments POC Glucose (test 143 mg/dL 70-115 H If you con visual inspector your code = POCGLUC) patient crit ically ill, the [facility]eline Accu- Chek InformII meters hould not be used for Glu cose determinations. Draw a venous Glucose and send to the Main Lab for Analysis. CBC with [id number] 07:15:00 Test Item Value Reference Range Interpretation [...] code = ALYMPH) 1.3 K/cumm 0.5-4.6 N [place] Abs (test code = AMONO) 0.7 K/cumm 0.0-1.2 N Eos Abs (test code = AEOS) 0.07 K/cumm 0.00-0.74 N Baso Abs (test code = ABASO) 0.0 K/cumm 0.00-0.21 N Magnesium, [id number] 07:03:00 Test Item Value Reference Range Interpretation Comments Magnesium (test code = MG) 2.0 mg/dL 1.7-2.5 N Basic Metabolic [id number] 07:03:00 Test Item Value Reference Range Interpretation [...] National Kidney Foundation,http ://nkd ep.nih.gov POC Glucose, [id number] 21:40:00 Test Item Value Reference Range Interpretation Comments POC Glucose (test 129 mg/dL 70-115 H If you con visual inspector your code = POCGLUC) patient crit ically ill, the [facility] Accu- Chek InformII meters hould not be used for Glu cose determinations. Draw a venous Glucose and send to the Main Lab for Analysis. Hep B Surface [id number] 18:36:00 Test Item Value Reference Range Interpretation Comments Hep Bs Ag (test code = HBSAG) Nonreactive Non-Reactive A POC Glucose, [id number] 10:51:00 Test Item Value Reference Range Interpretation Comments POC Glucose (test 216 mg/dL 70-115 H If you con visual inspector your code = POCGLUC) patient crit ically ill, the [facility]eline Accu- Chek InformII meters hould not be used for Glu cose determinations. Draw a venous Glucose and send to the Main Lab for Analysis. POC Glucose, [id number] 07:57:00 Test Item Value Reference Range Interpretation Comments POC Glucose (test 164 mg/dL 70-115 H If you con visual inspector your code = POCGLUC) patient crit ically ill, the Madeline Accu- Chek InformII meters hould not be used for Glu cose determinations. Draw a venous Glucose and send to the Main Lab for Analysis. POC Glucose, [id number] 19:47:00 Test Item Value Reference Range Interpretation Comments POC Glucose (test 140 mg/dL 70-115 H Notify RN or MDIf you code = POCGLUC) consider you r patient critically ill, the [facility] Accu-Chek InformII metershould not be used for Glucose determinations. Draw a venous Glucose and send to the Main Lab for Analysis. Troponin [id number] 19:36:00 Test Item Value Reference Range Interpretation Comments Troponin T (test code = MADHAV) 0.121 ng/mL 0.000-0.090 H CK [id number] 19:25:00 Test Item Value Reference Range Interpretation [...] 19:1 2 [facility] 1 .[facility]:24 POC Glucose, [id number] 16:42:00 Test Item Value Reference Range Interpretation Comments POC Glucose (test 123 mg/dL 70-115 H If you con visual inspector your code = POCGLUC) patient crit ically ill, the [facility]eline Accu- Chek InformII meters hould not be used for Glu cose determinations. Draw a venous Glucose and send to the Main Lab for Analysis. POC Glucose, [id number] 12:09:00 Test Item Value Reference Range Interpretation Comments POC Glucose (test 141 mg/dL 70-115 H If you con visual inspector your code = POCGLUC) patient crit ically ill, the [facility]eline Accu- Chek InformII meters hould not be used for Glu cose determinations. Draw a venous Glucose and send to the Main Lab for Analysis. Hep B Surface [id number] 07:59:00 Test Item Value Reference Range Interpretation Comments Hep Bs Ag (test code = HBSAG) Nonreactive Non-Reactive A CK [id number] 07:43:00 Test Item Value Reference Range Interpretation Comments CK (test code = CK) n/a U/L 39-308 N CKMB (test code = CKMB) 2.4 ng/mL 0.0-4.9 N CKMB% (test code = CKMBP) 0.0 % 0.0-3.4 N Troponin [id number] 07:38:00 Test Item Value Reference Range Interpretation Comments Troponin T (test code = MADHAV) 0.134 ng/mL 0.000-0.090 H Thyroid Stimulating Hormone (TSH)2017-09-25 07:38:00 Test Item Value Reference Range Interpretation Comments TSH (test code = TSH) 1.10 mIU/mL 0.270-4.200 N [id number] 07:38:00 Test Item Value Reference Range Interpretation Comments Phosphorus (test code = PO4) 3.4 mg/dL 2.70-4.50 N Comprehensive Metabolic [id number] 07:38:00 Test Item Value Reference Range Interpretation [...] the National Kidney Foundation,http ://nkd ep.nih.gov Magnesium, [id number] 07:38:00 Test Item Value Reference Range Interpretation Comments Magnesium (test code = MG) 2.0 mg/dL 1.7-2.5 N CK [id number] 07:31:00 Test Item Value Reference Range Interpretation Comments CK (test code = CK) 159 U/L 39-308 N Lipid [id number] 07:31:00 Test Item Value Reference Range Interpretation Comments Cholesterol (test 118 mg/dL 0-200 N code = CHOL) Triglycerides (test 170 mg/dL 9-200 N code = TRIG) HDL (test code = 49 mg/dL 40-60 N HDL) Chol/HDL (test code 2.4 Ratio 0.0-5.0 N = CHOLPHDL) LDL, Calculated 35 0-130 N (NOTE)RISK O F HEART (test code = LDLC) DISEASEPu blished by [place] Heart AssociationAnal yte Optim al Boderline Increased RiskC HOL <200 200-239 >240TRI G <150 150-199 >200HDL Male: >60 <40HDL Female: >60 <50 LDL < 100 130-15 9 >160 LDL NEAR OPTIMAL IS 100- 129 VLDL (test code = 34 mg/dL 5-40 N VLDL) LDL/HDL (test code = 1 LDLPHDL) Glycosylated [id number] 07:24:00 Test Item Value Reference Range Interpretation Comments HBA1c (test code = HBA1C) 5.0 % 4.8-5.9 N CBC with [id number] 07:20:00 Test Item Value Reference Range Interpretation [...] code = ALYMPH) 0.8 K/cumm 0.5-4.6 N [place] Abs (test code = AMONO) 0.5 K/cumm 0.0-1.2 N Eos Abs (test code = AEOS) 0.10 K/cumm 0.00-0.74 N Baso Abs (test code = ABASO) 0.0 K/cumm 0.00-0.21 N POC Glucose, [id number] 07:03:00 Test Item Value Reference Range Interpretation Comments POC Glucose (test 147 mg/dL 70-115 H If you con visual inspector your code = POCGLUC) patient crit ically ill, the [facility] Accu- Chek InformII meters hould not be used for Glu cose determinations. Draw a venous Glucose and send to the Main Lab for Analysis. POC Glucose, [id number] 22:05:00 Test Item Value Reference Range Interpretation Comments POC Glucose (test 134 mg/dL 70-115 H If you con visual inspector your code = POCGLUC) patient crit ically ill, the [place] Accu- Chek InformII meters hould not be used for Glu cose determinations. Draw a venous Glucose and send to the Main Lab for Analysis. Blood Gas+Lytes+Glu+Ca+Hgb+Hct+[id number] 18:31:00 Test Item Value Reference Range Interpretation [...] (test code = alokrblvverqnscrit COMMENT) liz Pierre@ [id number] Puncture Site (test code = Radial. R PUNSITE) Drawing Tech ID (test code gianfranco fi = DRAWTECH) iPAP (test code = IPAP) 0 cmH2O Respiratory Rate (test code 0 = RESP RATE) Lactic Acid, Blood Gas 0.4 mmol/L (test code = BGLA) CT CHEST W/O [id number] 16:48:03CT CHEST W/O CONTRASTLOCATION CODE: R16 HISTORY: [...] bilateral axillary, prevascular, andparatracheal lymph nodes.Influenza B [id number] 14:36:00Specimen: NasalCollected: 09/24/2017 14:04 Status: Final Last [...] validated by th e MDRD study and viktorul d be interpretedwith caution.eGFR Re sult Interpretation: eGFR > or = 60 is in t he Normal RangeeGF R < 60 may mean kidney diseaseeGFR < 1 5 may mean kidney failureRange s recommended by the National Kidney Foundation,http ://nkd ep.nih.gov Troponin [id number] 13:54:00 Test Item Value Reference Range Interpretation Comments Troponin T (test code = MADHAV) 0.124 ng/mL 0.000-0.090 H Mxr-[id number] 13:54:00 Test Item Value Reference Range Interpretation Comments NT ProBnp (test code = PBNP) >16784 pg/mL 0-124 H CK [id number] 13:54:00 Test Item Value Reference Range Interpretation Comments CK (test code = CK) 222 U/L 39-308 N CKMB (test code = CKMB) 3.1 ng/mL 0.0-4.9 N CKMB% (test code = CKMBP) 1.4 % 0.0-3.4 N CK [id number] 13:54:00 Test Item Value Reference Range Interpretation Comments CK (test code = CK) 222 U/L 39-308 N Partial Thromboplastin [id number] 13:43:00 Test Item Value Reference Range Interpretation Comments aPTT (test code = PTT) 35.70 seconds 24.39-37.25 N Prothrombin [id number] 13:43:00 Test Item Value Reference Range Interpretation Comments PT (test code = PT) 11.30 seconds 9.78-13.35 N INR (test code = INR) 0.99 Ratio 0.6-1.2 N Lactic Acid [id number] 13:41:00 Test Item Value Reference Range Interpretation Comments Lactic Acid, Bld (test code = LAC) 1.3 mmol/L 0.5-1.9 N CBC with [id number] 13:32:00 Test Item Value Reference Range Interpretation [...] code = ALYMPH) 1.2 K/cumm 0.5-4.6 N [place] Abs (test code = AMONO) 0.6 K/cumm 0.0-1.2 N Eos Abs (test code = AEOS) 0.23 K/cumm 0.00-0.74 N Baso Abs (test code = ABASO) 0.0 K/cumm 0.00-0.21 N XR CHEST 1 [id number] 12:50:14XR CHEST 1 VIEWLOCATION: [id number]: None.INDICATION: CoughDISCUSSION:A single portable chest radiograph was [...]
--- NOTE | 2020-11-28 21:41 | ER ---
Nurse's Notes [facility] Name: Salvatore Goldman Age: 65 yrs Sex: Male : 1955 Arrival Date: 11/28/2020 Time: 20:29 Bed Waiting Private MD: Diagnosis: Presentation: 11/28 20:41 Chief complaint: Patient states: tripped and fell, landed on the L side. Started having ca1 trouble breathing after the fall. Denies LOC. Reports pain on the R lateral ribcage. Reports HX of R lung surgery. Coronavirus screen: Client denies travel out of the [place] in the last 14 days. At this time, the client does not indicate any symptoms associated with coronavirus-19. Ebola Screen: Patient negative for fever greater than or equal to 101.5 degrees Fahrenheit, and additional compatible Ebola Virus Disease symptoms Patient denies exposure to infectious person. Patient denies travel to an Ebola-affected area in the 21 days before illness onset. No symptoms or risks identified at this time. Initial Sepsis Screen: Does the patient meet any 2 criteria? No. Patient's initial sepsis screen is negative. Does the patient have a suspected source of infection? No. Patient's initial sepsis screen is negative. Risk Assessment: Do you want to hurt yourself or someone else? Patient reports no desire to harm self or others. Onset of symptoms was November 28, 2020. 20:41 Method Of Arrival: Wheelchair ca1 20:41 Acuity: NARDA 3 ca1 21:00 Note Called by [employer] from the lob, no response. Not seen at the [facility]. ca1 Historical: - Allergies: 20:44 No Known Allergies; ca1 - PMHx: 20:44 Cirrhosis; Diabetes - NIDDM; Dialysis; heart valve; Hepatitis; HIV; Hyperlipidemia; ca1 Karposi Sarcoma (left leg); kidney failure; L arm HD access; - PSHx: 20:44 VALVE REPLACEMENT, HEART; ca1 - Immunization history:: Client reports receiving the 2nd dose of the Covid vaccine, Date received: November 09, 2020 Flu vaccine is up to date. - Social history:: Smoking status: Patient denies any tobacco usage or history of. Vital Signs: 20:41 BP 157 / 82; Pulse 93; Resp 18 S; Temp 98.6(TE); Pulse Ox 99% on R/A; Weight 66.68 kg ca1 (R); Height 5 ft. 7 in. (170.18 cm) (R); Pain 8/10; 20:41 Body Mass Index 23.02 (66.68 kg, 170.18 cm) ca1 ED Course: 20:29 Patient arrived in ED. ag3 20:43 Triage completed. ca1 20:44 Arm band placed on right wrist. ca1 21:08 Radiology exam delayed due to called pt's name multiple times out in the lobby for CT 2 exam, with no response. Felipa notified. 21:16 Fred Dooley MD is Attending Physician. tw4 21:39 Patient's name was called from ER lobby. No response. Unable to locate patient. Will ca1 disposition as left without being seen by a provider. Administered Medications: No medications were administered Outcome: 21:40 Patient left the ED. ca1 Signatures: Barb Albrecht [facility] Fred Dooley MD MD tw4 Digna Sotomayor 3 Helena Reyes RN RN ca1 Corrections: (The following items were deleted from the chart) 21:40 21:10 Note Called by Barb pak from the lobby, no response. Not seen at the [facility] lobby ca1
[2020-11-28 23:00] VITALS: BP 157/82; TEMP 98.6; O2SAT 99
== END 2020-11-28 21:40 | disposition left against medical advice (07) ==
LOC: ER 20:27
DX: Z53.21 Procedure and treatment not carried out due to patient leaving prior to being seen by health care provider (principal)
CPT/HCPCS: 99281

== ENCOUNTER 2021-06-20 14:22 | Inpatient (IN) | payer OTHER ==
[2021-06-20] MEDS ORDERED: ACETAMINOPHEN 325 MG TABLET ONE (15:29)
[2021-06-20] MEDS ORDERED: NA CHLORIDE 0.9% 100 ML ONE (15:30)
[2021-06-20] MEDS ORDERED: CEFTRIAXONE 1000 MG/VIAL ONE (15:30)
[2021-06-20 15:37] LABS: Absolute Lymphocytes (CBC) 0.7 K/uL (0.7-4.9); Basophils % 0.6 % (0-1.3); Hematocrit 26.4 % (39.6-49.0); Lymphocytes % 8.3 % (15.3-44.8); MPV 6.4 fL (7.6-11.3); RBC Red Blood Cell Count 2.77 M/uL (4.33-5.43)
[2021-06-20 15:38] LABS: Protime INR 1.97
--- NOTE | 2021-06-20 16:00 | RAD REPORT ---
EXAM DESCRIPTION: Segun Single View06/20/2021 3:43 pm CLINICAL HISTORY: sob COMPARISON: October 2019 FINDINGS: Mild bilateral pulmonary opacities. Heart is moderately enlarged. Small pleural effusions Postsurgical changes involve the chest IMPRESSION: CHF
[2021-06-20 17:41] LABS: Albumin 3.9 g/dL (3.4-5.0); Bilirubin Direct 0.3 mg/dL (0-0.2); Bilirubin Total 0.8 mg/dL (0.2-1.0); Magnesium 1.7 mg/dL (1.8-2.4); Potassium 3.7 mmol/L (3.5-5.1); Protein, Total 8.8 g/dL (6.4-8.2); Troponin (Emerg Dept Use Only) 0.03 ng/mL (0.0-0.045)
--- NOTE | 2021-06-20 18:08 | EDPHYS ---
Physician Documentation [facility] Name: Salvatore Goldman Age: 66 yrs Sex: Male : 1955 Arrival Date: 06/20/2021 Time: 14:25 Bed 7 Private MD: Lorne Washburn ED Physician Cayla Murrieta HPI: 06/20 17:47 This 66 yrs old Black Male presents to ER via Wheelchair with complaints of Sinus jmm Congestion, Sinus Pain. 17:47 Onset: The symptoms/episode began/occurred gradually, 3 day(s) ago. Modifying factors: jmm The symptoms are alleviated by nothing, the symptoms are aggravated by nothing. Associated signs and symptoms: Pertinent positives: fever, sore throat. This is a 66-year-old male with a history of end-stage renal disease, diabetes mellitus, hypertension, HIV the presents emerge department with complaints of cough, congestion beginning this past Saturday. Patient arrived in triage satting around 86% on room air. . Historical: - Allergies: 14:53 No Known Allergies; vg1 - Home Meds: 14:53 atropine 1 % Opht drop 1 drop once daily [Active]; carvedilol 12.5 mg Oral tab 1 tab 2 vg1 times per day [Active]; Isentress 400 mg Oral tab 1 tab 2 times per day [Active]; Kaletra 200-50 mg Oral tab 2 tabs 2 times per day [Active]; lamivudine 10 mg/mL Oral soln 2.5 mL once daily [Active]; metformin 500 mg Oral tab 1 tab daily [Active]; pantoprazole 40 mg Oral TbEC 1 tab once daily [Active]; prednisolone acetate 1 % Opht drps 1 drop 4 times per day [Active]; Daija-Kodak 0.8 mg Oral tab daily [Active]; tramadol 50 mg Oral tab 1 tab Q8HRS PRN [Active]; Vitamin D Oral 74421 unit WEEKLY [Active]; warfarin 10 mg Oral tab 1.5 tabs on M,W, F and 1 tab on T,Thurs, Sat, Sun [Active]; - PMHx: 14:53 Cirrhosis; Diabetes - NIDDM; Dialysis; heart valve; Hepatitis; HIV; Hyperlipidemia; vg1 Karposi Sarcoma (left leg); kidney failure; L arm HD access; - Immunization history:: Adult Immunizations up to date, Client reports receiving the 2nd dose of the Covid vaccine. - Social history:: Smoking status: Patient denies any tobacco usage or history of. ROS: 17:47 Constitutional: Positive for body aches, fever. [facility] 17:47 Respiratory: Positive for cough, shortness of breath. 17:47 All other systems are negative. Exam: 17:47 Constitutional: This is a well developed, well nourished patient who is awake, alert, jmm and in no acute distress. Head/Face: atraumatic. Eyes: EOMI, no conjunctival erythema appreciated ENT: Moist Mucus Membranes Neck: Trachea midline, Supple Chest/axilla: Normal chest wall appearance and motion. Cardiovascular: Regular rate and rhythm. No edema appreciated Respiratory: Normal respirations, no respiratory distress appreciated Abdomen/GI: Non distended, soft Back: Normal ROM Skin: General appearance color normal MS/ Extremity: Moves all extremities, no obvious deformities appreciated, no edema noted to the lower extremities Neuro: Awake and alert, normal gait Psych: Behavior is normal, Mood is normal, Patient is cooperative and pleasant Vital Signs: 14:50 BP 125 / 63; Pulse 99; Resp 24; Temp 100.8(O); Pulse Ox 93% on 2 lpm NC; Weight 68.04 vg1 kg; Height 5 ft. 7 in. (170.18 cm); Pain 0/10; 15:29 BP 136 / 70; Pulse 100; Resp 18; Pulse Ox 97% on R/A; ap3 17:07 BP 119 / 66; Pulse 90; Resp 18; Pulse Ox 99% on R/A; ap3 18:00 BP 125 / 67; Pulse 88; Pulse Ox 100% on R/A; ap3 19:42 BP 119 / 84; Pulse 95; Resp 18; Pulse Ox 100% on R/A; Pain 0/10; ms4 20:00 Temp 99.2(O); ms4 14:50 Body Mass Index 23.49 (68.04 kg, 170.18 cm) vg1 MDM: 15:32 Patient medically screened. [facility] 17:49 Data reviewed: vital signs, nurses notes. Counseling: I had a detailed discussion with lizz the patient and/or guardian regarding: the historical points, exam findings, and any diagnostic results supporting the discharge/admit diagnosis, lab results, the need for further work-up and treatment in the hospital. Transition of care: After a detail discussion of the patient's case, care is transferred to Cayla Murrieta MD. 18:07 Differential Diagnosis: Influenza Sinusitis Pharyngitis Pneumonia. Response to ma2 treatment: the patient's symptoms have markedly improved after treatment. 06/20 14:57 Order name: Basic Metabolic Panel [facility] 06/20 14:57 Order name: CBC with Diff [facility] 06/20 14:57 Order name: LFT's [facility] 06/20 14:57 Order name: Magnesium [facility] 06/20 14:57 Order name: NT PRO-BNP [facility] 06/20 14:57 Order name: PT-INR; Complete Time: 15:42 [facility] 06/20 14:57 Order name: Troponin (emerg Dept Use Only); Complete Time: 18:04 [facility] 06/20 14:57 Order name: Procalcitonin; Complete Time: 16:15 [facility] 06/20 14:57 Order name: Lactate; Complete Time: 15:53 [facility] 06/20 14:57 Order name: Blood Culture Adult (2) [facility] 06/20 14:58 Order name: Basic Metabolic Panel; Complete Time: 18:04 [facility] 06/20 14:58 Order name: CBC with Automated Diff; Complete Time: 15:39 [facility] 06/20 14:58 Order name: Liver (Hepatic) Function; Complete Time: 18:04 [facility] 06/20 14:58 Order name: Magnesium; Complete Time: 18:04 [facility] 06/20 14:57 Order name: XRAY Chest (1 view); Complete Time: 16:05 [facility] 06/20 14:57 Order name: EKG; Complete Time: 14:58 [facility] 06/20 14:57 Order name: Cardiac monitoring; Complete Time: 15:09 [facility] 06/20 14:57 Order name: EKG - Nurse/Tech; Complete Time: 15:29 [facility] 06/20 14:57 Order name: IV Saline Lock; Complete Time: 15:29 [facility] 06/20 14:57 Order name: Labs collected and sent; Complete Time: 15:29 [facility] 06/20 14:57 Order name: O2 Per Protocol; Complete Time: 15:08 [facility] 06/20 14:57 Order name: O2 Sat Monitoring; Complete Time: 15:08 [facility] 06/20 14:58 Order name: NT PRO-BNP; Complete Time: 18:04 [facility]DE 06/20 16:17 Order name: SARS-COV-2 RT PCR; Complete Time: 17:20 EDMS 06/20 18:52 Order name: CONS Physician Consult EDMS Administered Medications: 15:28 Drug: Rocephin (cefTRIAXone) 1 grams Route: IV; Rate: calculated rate; Site: right ap3 forearm; 18:33 Follow up: IV Status: Completed infusion ap3 15:29 Drug: Tylenol 650 mg Route: PO; ap3 18:33 Follow up: Response: No adverse reaction ap3 Disposition: 18:07 Co-signature as Attending Physician, Cayla Murrieta MD PA/GAME PRODUCER's history reviewed, ma2 patient interviewed, and examined. I agree with assessment and care plan and confirm the diagnosis (es) above. Disposition Summary: 06/20/21 18:07 Hospitalization Ordered Hospitalization Status: Inpatient Admission ma2 Provider: Scout Carr [facility] Location: Telemetry/MedSurg (Inpatient) ma2 Condition: Stable ma2 Problem: new ma2 Symptoms: are unchanged ma2 Bed/Room Type: Standard [facility] Room Assignment: 224(06/20/21 20:05) eb1 Diagnosis - Other pneumonia, unspecified organism ma2 - End stage renal disease ma2 Forms: - Medication Reconciliation Form ma2 - SBAR form ma2 Signatures: Dispatcher [employer] EDCalixto Post PA PA jmm Alzahri, Mohammad, MD MD ma2 Michelle Whitney RN RN ap3 Beatriz Winkler RN RN eb1 Barb Durán, RN RN vg1 Corrections: (The following items were deleted from the chart) 16:17 14:59 CORONAVIRUS+MR.LAB.BRZ ordered. EDDE EDMS 20:05 18:07 ma2 eb1
--- NOTE | 2021-06-20 18:08 | ER ---
Nurse's Notes [facility] Name: Salvatore Goldman Age: 66 yrs Sex: Male : 1955 Arrival Date: 06/20/2021 Time: 14:25 Bed 7 Private MD: Lorne Washburn Diagnosis: Other pneumonia, unspecified organism;End stage renal disease Presentation: 06/20 14:50 Chief complaint: Patient states: Productive cough, sneezing, runny nose, NVD, began vg1 Saturday06/17/21. Pt was 86% RA in triage. Placed pt on 2L NC, O2 at 93%. Coronavirus screen: Vaccine status: Patient reports receiving the 2nd dose of the covid vaccine. Client denies travel out of the [place] in the last 14 days. Client presents with at least one sign or symptom that may indicate coronavirus-19. Standard/surgical mask placed on the client. Ebola Screen: Patient negative for fever greater than or equal to 101.5 degrees Fahrenheit, and additional compatible Ebola Virus Disease symptoms. Initial Sepsis Screen: Does the patient meet any 2 criteria? RR > 20 per min. HR > 90 bpm. Yes Does the patient have a suspected source of infection? No. Patient's initial sepsis screen is negative. Risk Assessment: Do you want to hurt yourself or someone else? Patient reports no desire to harm self or others. Onset of symptoms was June 17, 2021. 14:50 Method Of Arrival: Wheelchair vg1 14:50 Acuity: NARDA 3 vg1 Triage Assessment: 14:53 General: Appears in no apparent distress. Behavior is calm, cooperative. Neuro: Level vg1 of Consciousness is awake, alert, obeys commands, Oriented to person, place, time, situation. 15:06 Pain: Also complains of congestion. Pain: Complains of pain in sinus area Pain ap3 currently is 4 out of 10 on a pain scale. Quality of pain is described as pressure Pain began gradually, 2-3 days ago. 15:07 Headache History: The patient has had previous headaches and this one is similar to ap3 previous episodes. Historical: - Allergies: 14:53 No Known Allergies; vg1 - Home Meds: 14:53 atropine 1 % Opht drop 1 drop once daily [Active]; carvedilol 12.5 mg Oral tab 1 tab 2 vg1 times per day [Active]; Isentress 400 mg Oral tab 1 tab 2 times per day [Active]; Kaletra 200-50 mg Oral tab 2 tabs 2 times per day [Active]; lamivudine 10 mg/mL Oral soln 2.5 mL once daily [Active]; metformin 500 mg Oral tab 1 tab daily [Active]; pantoprazole 40 mg Oral TbEC 1 tab once daily [Active]; prednisolone acetate 1 % Opht drps 1 drop 4 times per day [Active]; Daija-Kodak 0.8 mg Oral tab daily [Active]; tramadol 50 mg Oral tab 1 tab Q8HRS PRN [Active]; Vitamin D [place] 95042 unit WEEKLY [Active]; warfarin 10 mg Oral tab 1.5 tabs on M,W, F and 1 tab on T,Thurs, Sat, Sun [Active]; - PMHx: 14:53 Cirrhosis; Diabetes - NIDDM; Dialysis; heart valve; Hepatitis; HIV; Hyperlipidemia; vg1 Karposi Sarcoma (left leg); kidney failure; L arm HD access; - Immunization history:: Adult Immunizations up to date, Client reports receiving the 2nd dose of the Covid vaccine. - Social history:: Smoking status: Patient denies any tobacco usage or history of. Screenin:06 Abuse screen: Denies threats or abuse. Nutritional screening: No deficits noted. ap3 Tuberculosis screening: No symptoms or risk factors identified. Fall Risk None identified. Assessment: 15:05 General: Appears comfortable, Behavior is calm, cooperative, appropriate for age. Pain: ap3 Denies pain. Neuro: Level of Consciousness is awake, alert, obeys commands, Oriented to person, place, time, situation, Appropriate for age Moves all extremities. Speech is normal. Cardiovascular: Capillary refill < 3 seconds Patient's skin is warm and dry. Respiratory: Airway is patent pt placed on O2. Derm: dialysis access in left arm. 16:06 Reassessment: Patient and/or family updated on plan of care and expected duration. Pain ap3 level reassessed. Patient is alert, oriented x 3, equal unlabored respirations, skin warm/dry/pink. 18:33 Reassessment: Patient and/or family updated on plan of care and expected duration. Pain ap3 level reassessed. Patient is alert, oriented x 3, equal unlabored respirations, skin warm/dry/pink. patient updated on plan of care. Vital Signs: 14:50 BP 125 / 63; Pulse 99; Resp 24; Temp 100.8(O); Pulse Ox 93% on 2 lpm NC; Weight 68.04 vg1 kg; Height 5 ft. 7 in. (170.18 cm); Pain 0/10; 15:29 BP 136 / 70; Pulse 100; Resp 18; Pulse Ox 97% on R/A; ap3 17:07 BP 119 / 66; Pulse 90; Resp 18; Pulse Ox 99% on R/A; ap3 18:00 BP 125 / 67; Pulse 88; Pulse Ox 100% on R/A; ap3 19:42 BP 119 / 84; Pulse 95; Resp 18; Pulse Ox 100% on R/A; Pain 0/10; ms4 20:00 Temp 99.2(O); ms4 14:50 Body Mass Index 23.49 (68.04 kg, 170.18 cm) vg1 ED Course: 14:25 Patient arrived in ED. as 14:25 Lorne Washburn DO is Private Physician. as 14:53 Triage completed. vg1 14:53 Arm band placed on. vg1 14:57 Calixto Dixon PA is PHCP. [facility] 14:57 Cayla Murrieta MD is Attending Physician. [facility] 14:58 Michelle Whitney, LAURYN is Primary Nurse. ap3 15:06 Patient has correct armband on for positive identification. ekg monitor on. Pulse ap3 ox on. NIBP on. Door closed. Noise minimized. Warm blanket given. 15:43 XRAY Chest (1 view) In Process Unspecified. EDMS 16:06 COVID swab sent to lab. ap3 18:07 Scout Carr DO is Hospitalizing Provider. ma2 19:19 Primary Nurse role handed off by Michelle Whitney, RN tt3 19:21 Basic Metabolic Panel Sent. ms4 19:21 CBC with Diff Sent. ms4 19:21 LFT's Sent. ms4 19:21 Magnesium Sent. ms4 19:21 NT PRO-BNP Sent. ms4 20:22 Patient admitted, IV remains in place. wg Administered Medications: 15:28 Drug: Rocephin (cefTRIAXone) 1 grams Route: IV; Rate: calculated rate; Site: right ap3 forearm; 18:33 Follow up: IV Status: Completed infusion ap3 15:29 Drug: Tylenol 650 mg Route: PO; ap3 18:33 Follow up: Response: No adverse reaction ap3 Outcome: 18:07 Decision to Hospitalize by Provider. ma2 20:23 Admitted to Med/surg accompanied by tech, room 224, with oxygen, Report called to sheldon Cifuentes RN 20:39 Patient left the ED. sheldon Signatures: Dispatcher [employer] EDMS Calixto Dixon PA PA jmm Martinez, Amelia as Alzahri, Mohammad, MD MD ma2 Michelle Whitney RN RN ap3 Barb Durán RN RN vg1 Ventura Scales tt3 Enma Yanez RN RN ms4 Brenton Harmon RN wg Corrections: (The following items were deleted from the chart) 14:55 14:50 Chief complaint: Patient states: Productive cough, sneezing, runny nose, NVD, vg1 began Saturday06/17/21. Pt was 88% RA in triage. Placed pt on 2L NC, O2 at 93%. vg1 15:07 14:53 Pain: Denies pain. vg1 ap3
[2021-06-20] MEDS ORDERED: ACETAMINOPHEN 500 MG TAB PO PRN (20:18)
[2021-06-20] MEDS ORDERED: IPRATROPIUM BROM 0.5MG/2.5ML NEB PRN (20:18)
[2021-06-20] MEDS ORDERED: ONDANSETRON 4 MG/2 ML VIAL IV PRN (20:18)
[2021-06-20] MEDS ORDERED: ALBUTEROL 2.5 MG/3 ML NEB SOL NEB PRN (20:18)
[2021-06-20] MEDS ORDERED: HYDRALAZINE HCL 20 MG/ML VIAL IV PRN (20:34)
--- NOTE | 2021-06-20 20:51 | RAD REPORT ---
EXAM DESCRIPTION: CT - Thorax Wo Con - 06/20/2021 8:40 pm CLINICAL HISTORY: cough COMPARISON: June 20, 2021 chest x-ray TECHNIQUE: Computed axial tomography of the chest was obtained. Contrast was not requested. All CT scans are performed using dose optimization technique as appropriate and may include automated exposure control or mA/KV adjustment according to patient size. FINDINGS: The evaluation of mediastinum, irma and vessels is limited secondary to lack of IV contras t administration. Small to moderate bibasilar lung opacities. Mild right middle lobe opacities. Upper lobes are mostly clear Small mediastinal lymph nodes probably reactive nature Small bilateral pleural effusions. Cardiomegaly IMPRESSION: Small to moderate bibasilar lung opacities probably pneumonia
[2021-06-20] MEDS: INSULIN -REGULAR HUMAN 50 UNIT/0.5 ML ML SQ SCH (21:00)
[2021-06-20] MEDS: AZITHROMYCIN 500 MG/250 ML BAG IVPB SCH (21:24)
--- NOTE | 2021-06-20 21:33 | P.HP ---
Certification for Inpatient Patient admitted to: Inpatient With expected LOS: <2 Midnights Patient will require the following post-hospital care: None Practitioner: I am a practitioner with admitting privileges, knowledge of patient current condition, hospital course, and medical plan of care. Services: Services provided to patient in accordance with Admission requirements found in Title 42 Section 412.3 of the Code of Federal Regulations Patient History Date of Service: 06/20/21 Reason for admission: pneumonia History of Present Illness: Mr. Goldman is a 66 yo M with HTN, DM, HLD, HIV, ESRD on HD, cirrhosis who presents with cough productive of yellow sputum and malaise beginning on Saturday. He also reports diarrhea and pleuritic pain. Denies nausea and vomiting and wheezing. Intake of food and liquids still adequate. Received his flus hsot a week ago. Sats 86% on RA upon arrival, stable on 2L NC. procal 0.25 CT Chest IMPRESSION: Small to moderate bibasilar lung opacities probably pneumonia Allergies No Known Allergies Allergy (Verified 06/20/21 21:29) Home Medications: Lamivudine [Epivir] 2.5 ml PO BID 02/18/18 Lopinavir/Ritonavir [Kaletra 200-50 MG Tablet*] 2 tab PO BID 05/17/18 Raltegravir Potassium [Isentress*] 400 mg PO BID 05/17/18 Warfarin Sodium [Coumadin*] 10 mg PO DAILY 5 PM 05/17/18 Aspirin Chewable [Aspirin Chewable*] 81 mg PO DAILY 05/18/18 Folic Acid/Vit B Complex and C [Daija-Kodak Tablet] 1 tab PO DAILY 05/18/18 Calcium Acetate 1 cap PO BID 03/09/19 Amoxicillin/Potassium Clav [Augmentin 500-125 Tablet] 1 each PO DAILY #7 tablet 07/30/19 carvediloL [Coreg] 25 mg PO BID #60 tab 07/15/20 - Past Medical/Surgical History Diabetic: Yes -: HIV-AIDS -: Hepatitis C -: Chronic anti coagulation therapy -: Hypertension -: Karposi Sarcoma of the LLE -: Mechanical heart valve on Coumadin -: Cirrhosis -: ESRD on HD Saturday -: AV fistula to the LUE -: Mitral Valve Replacement, mechanical Psychosocial/ Personal History: He has been with his current partner for years, 7-children, Disabled. - Family History Family History: Reviewed- Non-Contributory - Family History Father -: Diabetes, Other (see notes) Notes: bilateral amputee Mother -: Heart disease, Hypertension, Stroke - Social History Smoking Status: Never smoker Alcohol use: No CD- Drugs: No Caffeine use: Yes Place of Residence: Home Review of Systems 10-point ROS is otherwise unremarkable General: Chills, Weakness, Malaise, As per HPI Eyes: Unremarkable ENT: Unremarkable Respiratory: Cough, Shortness of Breath, Pleuritic Pain, Sputum, As per HPI Cardiovascular: Unremarkable Gastrointestinal: Diarrhea, As per HPI Genitourinary: Unremarkable Musculoskeletal: Unremarkable Integumentary: Unremarkable Neurological: Unremarkable Lymphatics: Unremarkable Physical Examination - Vital Signs Temperature: 97.3 F Blood Pressure: 143/72 Pulse: 98 Respirations: 19 Pulse Ox (%): 92 - Physical Exam General: Alert, In no apparent distress HEENT: Atraumatic, PERRLA, Mucous membr. moist/pink, EOMI, Sclerae nonicteric Neck: Supple, 2+ carotid pulse no bruit, No LAD, Without JVD or thyroid abnormality Respiratory: Diminished, Crackles/rales, Expiratory wheezes Cardiovascular: Regular rate/rhythm, Normal S1 S2 Gastrointestinal: Normal bowel sounds, No tenderness Musculoskeletal: No tenderness Integumentary: No rashes Neurological: Normal speech, Normal strength at 5/5 x4 extr, Normal tone, Normal affect Lymphatics: No axilla or inguinal lymphadenopathy - Studies Laboratory Data (last 24 hrs) 06/20/21 15:23: PT 22.8 H, INR 1.97 06/20/21 15:23: WBC 8.30, Hgb 9.2 L, Hct 26.4 L, Plt Count 108 L 06/20/21 14:57: Sodium 136, Potassium 3.7, BUN 23 H, Creatinine 5.18 H*, Glucose 102, Magnesium 1.7 L, Total Bilirubin 0.8, AST 23, ALT 20, Alkaline Phosphatase 70 Assessment and Plan - Problems (Diagnosis) (1) Pneumonia Current Visit: Yes Status: Chronic Qualifiers: Pneumonia type: due to unspecified organism Laterality: bilateral Lung location: lower lobe of lung Qualified Code(s): J18.9 - Pneumonia, unspecified organism (2) Acute on chronic diastolic CHF (congestive heart failure) Onset Date: 02/25/18 Current Visit: No Status: Chronic (3) Diabetes mellitus Onset Date: 03/16/16 Current Visit: No Status: Chronic Qualifiers: Diabetes mellitus type: type 2 Diabetes mellitus care home insulin use: without care home use Diabetes mellitus complication status: with kidney complications Chronic kidney disease stage: on chronic dialysis (4) ESRD (end stage renal disease) Onset Date: 03/16/16 Current Visit: No Status: Chronic (5) HIV (human immunodeficiency virus infection) Onset Date: 03/16/16 Current Visit: No Status: Chronic Qualifiers: HIV symptom status: unspecified Qualified Code(s): B20 - Human immunodeficiency virus [HIV] disease (6) HTN (hypertension) Onset Date: 03/16/16 Current Visit: No Status: Chronic Qualifiers: Hypertension type: primary hypertension Qualified Code(s): I10 - Essential (primary) hypertension (7) Hepatitis C Onset Date: 03/16/16 Current Visit: No Status: Chronic Qualifiers: Viral hepatitis chronicity: unspecified Hepatic coma status: without hepatic coma Qualified Code(s): B19.20 - Unspecified viral hepatitis C without hepatic coma - Plan continue IV antibiotics breathing treatments and O2 and antipyretics as needed nephrology consulted for dialysis reconcile warfarin, monitor INR sliding scale insulin and accuchecks BP stable, continue to monitor reconcile and continue home medications Discharge Plan: Home Plan to discharge in: 48 Hours - Advance Directives Does patient have a Living Will: No Does patient have a Durable POA for Healthcare: No - Code Status/Comfort Care Code Status Assessed: Yes (full code ) Critical Care: No Time Spent Managing Pts Care (In Minutes): 70
[2021-06-20] MEDS ORDERED: AZITHROMYCIN 500 MG INJ IVPB ONE (21:35)
[2021-06-20] MEDS ORDERED: NA CHLORIDE 0.9% 250 ML ONE (21:45)
[2021-06-20] MEDS: BENZONATATE 100 MG CAP PO PRN (22:15)
[2021-06-21] MEDS ORDERED: TRAMADOL HCL 50 MG TAB PO PRN ×2 (01:49→01:58)
[2021-06-21 06:47] LABS: Absolute Lymphocytes (CBC) 0.7 K/uL (0.7-4.9); Basophils % 0.5 % (0-1.3); Hematocrit 25.1 % (39.6-49.0); MPV 6.8 fL (7.6-11.3); RBC Red Blood Cell Count 2.63 M/uL (4.33-5.43)
[2021-06-21] MEDS: INSULIN -REGULAR HUMAN 50 UNIT/0.5 ML ML SQ SCH ×4 (07:30→21:00)
[2021-06-21 07:42] LABS: Albumin 3.5 g/dL (3.4-5.0); Bilirubin Total 0.7 mg/dL (0.2-1.0); Magnesium 1.7 mg/dL (1.8-2.4); Phosphorus 4.6 mg/dL (2.5-4.9); Potassium 3.7 mmol/L (3.5-5.1); Protein, Total 8.1 g/dL (6.4-8.2); Thyroid Stimulating Hormone 1.1 uIU/mL (0.360-3.740)
[2021-06-21] MEDS: PANTOPRAZOLE 40MG TABLET PO SCH (08:00)
[2021-06-21 08:48] LABS: Blood Morphology Comment NOT SEEN (NOT SEEN); Platelet Estimate ADEQ
[2021-06-21] MEDS ORDERED: FOLIC ACID PO SCH (09:00)
[2021-06-21] MEDS ORDERED: RALTEGRAVIR POTASSIUM 400 MG TABLET PO SCH (09:00)
[2021-06-21] MEDS ORDERED: ATROPINE 1% OPTH SCH (09:00)
[2021-06-21] MEDS ORDERED: METFORMIN HCL 500 MG TAB PO SCH (09:00)
[2021-06-21] MEDS ORDERED: VIT B COMPLEX AND C PO SCH (09:00)
[2021-06-21] MEDS: MULTIVITAMINS,THERAPEUT 1 TAB PO SCH (09:58)
[2021-06-21] MEDS: carvediloL 25 MG TAB PO SCH ×2 (09:59→21:19)
[2021-06-21] MEDS: PREDNISOLONE ACET 1% OPTH SCH ×4 (13:00→21:21)
[2021-06-21] MEDS: EYE OPTH SCH ×4 (13:00→21:21)
[2021-06-21] MEDS: Lopinavir/Ritonavir Tab PO SCH ×2 (13:55→21:20)
[2021-06-21] MEDS: ISENTRESS 400 MG PO SCH ×2 (13:57→21:21)
--- NOTE | 2021-06-21 15:02 | P.PN ---
Subjective Date of Service: 06/21/21 Chief Complaint: pneumonia Patient reports feeling much better today. He stated the coughing has improved. He denies any chest pain and he is breathing better. Physical Examination - Vital Signs Temperature: 97.2 F Blood Pressure: 143/76 Pulse: 86 Respirations: 16 Pulse Ox (%): 99 - Physical Exam General: Alert, In no apparent distress HEENT: Mucous membr. moist/pink Neck: JVD not distended Respiratory: Crackles/rales (Mild bibasilar rales) Cardiovascular: No edema, Regular rate/rhythm, Normal S1 S2 Gastrointestinal: Soft and benign, Non-distended, No tenderness Musculoskeletal: Other (Kaposi sarcoma swelling-right leg) Integumentary: Rash(es) (Generalize scaly rashes.) Neurological: Normal strength at 5/5 x4 extr, Cranial nerves 3-12 intact - Studies Laboratory Data (last 24 hrs) 06/20/21 15:23: PT 22.8 H, INR 1.97 06/20/21 15:23: WBC 8.30, Hgb 9.2 L, Hct 26.4 L, Plt Count 108 L 06/20/21 14:57: Sodium 136, Potassium 3.7, BUN 23 H, Creatinine 5.18 H*, Glucose 102, Magnesium 1.7 L, Total Bilirubin 0.8, AST 23, ALT 20, Alkaline Phosphatase 70 Assessment And Plan - Current Problems (Diagnosis) (1) Pneumonia Current Visit: Yes Status: Chronic Qualifiers: Pneumonia type: due to unspecified organism Laterality: bilateral Lung location: lower lobe of lung Qualified Code(s): J18.9 - Pneumonia, unspecified organism (2) ESRD on hemodialysis Onset Date: 09/22/18 Current Visit: No Status: Acute (3) Diabetes mellitus Onset Date: 03/16/16 Current Visit: No Status: Chronic Qualifiers: Diabetes mellitus type: type 2 Diabetes mellitus assistant terminal manager insulin use: without halfway use Diabetes mellitus complication status: with kidney complications Chronic kidney disease stage: on chronic dialysis (4) HIV (human immunodeficiency virus infection) Onset Date: 03/16/16 Current Visit: No Status: Chronic Qualifiers: HIV symptom status: unspecified Qualified Code(s): B20 - Human immunodeficiency virus [HIV] disease (5) Chronic anticoagulation Current Visit: Yes Status: Acute (6) H/O mitral valve replacement Current Visit: Yes Status: Acute (7) Chronic anemia Current Visit: Yes Status: Acute (8) HTN (hypertension) Onset Date: 03/16/16 Current Visit: No Status: Chronic Qualifiers: Hypertension type: primary hypertension Qualified Code(s): I10 - Essential (primary) hypertension - Plan Continue antibiotics for pneumonia. Continue bronchodilators. Follow cultures Chest physiotherapy. Continue HIV medications. Continue Coumadin anticoagulation for mitral valve prosthesis. Monitor INR. Nephrology consult for hemodialysis. Patient is currently tolerating room air. Planning to discharged after hemodialysis tomorrow. Continue home antihypertensives.
[2021-06-21] MEDS ORDERED: CEFTRIAXONE 1 GM/NS 50 ML 1 GM/50 ML BAG IV SCH (16:00)
[2021-06-21] MEDS ORDERED: WARFARIN SODIUM 5 MG TAB PO SCH ×3 (17:00)
--- NOTE | 2021-06-21 20:45 | P.CNS ---
Date of Consult: 06/21/21 Reason for Consult: ESRD Requesting Physician: maria victoria wilcox Chief Complaint: pneumonia History of Present Illness: Mr. Goldman is a 66 yo M with HTN, DM, HLD, HIV, ESRD on HD, cirrhosis who presents with cough productive of yellow sputum and malaise beginning on Saturday. He also reports diarrhea and pleuritic pain. Denies nausea and vomiting and wheezing. Intake of food and liquids still adequate. Received his flus hsot a week ago. Sats 86% on RA upon arrival, stable on 2L NC. 17:47 This 66 yrs old Black Male presents to ER via Wheelchair with complaints of Sinus jmm Congestion, Sinus Pain. 17:47 Onset: The symptoms/episode began/occurred gradually, 3 day(s) ago. Modifying factors: jmm The symptoms are alleviated by nothing, the symptoms are aggravated by nothing. Associated signs and symptoms: Pertinent positives: fever, sore throat. This is a 66-year-old male with a history of end-stage renal disease, diabetes mellitus, hypertension, HIV the presents emerge department with complaints of cough, congestion beginning this past Saturday. Patient arrived in triage satting around 86% on room air. Allergies No Known Allergies Allergy (Verified 06/20/21 21:29) Home medications list reviewed: Yes Home Medications: Lamivudine [Epivir] 2.5 ml PO DAILY 02/18/18 Lopinavir/Ritonavir [Kaletra 200-50 MG Tablet*] 2 tab PO BID 05/17/18 Raltegravir Potassium [Isentress*] 400 mg PO BID 05/17/18 Folic Acid/Vit B Complex and C [Daija-Kodak Tablet] 1 tab PO DAILY 05/18/18 Atropine 1% Opth Alicia [Atropine 1% Opth Alicia*] 1 drop OP DAILY 06/21/21 Cholecalciferol (Vitamin D3) [Vitamin D 5,000 Iu Cap] 5,000 unit PO SEECOM 06/21/21 Pantoprazole [Protonix Tab] 40 mg PO DAILY 06/21/21 Prednisolone Acetate/Pf [Prednisolone Acet 1% Eye Drop] 1 drop OP QID 06/21/21 Tramadol HCl [Ultram] 50 mg PO Q8H PRN 06/21/21 Warfarin Sodium 1.5 tab PO SEECOM 06/21/21 Warfarin Sodium 10 mg PO SEECOM 06/21/21 carvediloL [Coreg] 12.5 mg PO BID 06/21/21 - Past Medical/Surgical History Diabetic: Yes -: HIV-AIDS -: Hepatitis C -: Chronic anti coagulation therapy -: Hypertension -: Karposi Sarcoma of the LLE -: Mechanical heart valve on Coumadin -: Cirrhosis -: ESRD on HD Saturday -: AV fistula to the LUE -: Mitral Valve Replacement, mechanical Psychosocial/ Personal History: He has been with his current partner for years, 7-children, Disabled. - Family History Father Medical History: Diabetes, Other (see notes) Notes: bilateral amputee Mother Medical History: Heart disease, Hypertension, Stroke - Social History Smoking Status: Unknown if ever smoked Alcohol use: No CD- Drugs: No Caffeine use: Yes Place of Residence: Home Review of Systems 10-point ROS is otherwise unremarkable General: Weakness, Malaise Respiratory: Cough, SOB with Excertion Physical Examination Temp Pulse Resp BP Pulse Ox 97.2 F 86 16 143/76 H 99 06/21/21 15:34 06/21/21 15:34 06/21/21 15:34 06/21/21 15:34 06/21/21 15:34 General: In no apparent distress, Cooperative HEENT: Atraumatic Neck: Supple Respiratory: Diminished Cardiovascular: No edema, Regular rate/rhythm Gastrointestinal: Soft and benign, Non-distended Musculoskeletal: No clubbing, No contractures Integumentary: No rashes, No cyanosis Neurological: Normal speech Blood work reviewed in the chart. Imagings Data: EXAM DESCRIPTION: RADJesseniat Single View06/20/2021 3:43 pm CLINICAL HISTORY: sob COMPARISON: October 2019 FINDINGS: Mild bilateral pulmonary opacities. Heart is moderately enlarged. Small pleural effusions Postsurgical changes involve the chest IMPRESSION: CHF EXAM DESCRIPTION: CT - Thorax Wo Con - 06/20/2021 8:40 pm CLINICAL HISTORY: cough COMPARISON: June 20, 2021 chest x-ray TECHNIQUE: Computed axial tomography of the chest was obtained. Contrast was not requested. All CT scans are performed using dose optimization technique as appropriate and may include automated exposure control or mA/KV adjustment according to patient size. FINDINGS: The evaluation of mediastinum, irma and vessels is limited secondary to lack of IV contrast administration. Small to moderate bibasilar lung opacities. Mild right middle lobe opacities. Upper lobes are mostly clear Small mediastinal lymph nodes probably reactive nature Small bilateral pleural effusions. Cardiomegaly IMPRESSION: Small to moderate bibasilar lung opacities probably pneumonia Conclusions/Impression: ESRD TTS -HD TIW -Next HD tomorrow HTN with CKD/ CHF -Continue Coreg Diastolic CHF, chronic -HD with UF -Low sodium diet -Continue Coreg Moderate malnutrition -Start Nepro Anemia in chronic illness -Give Retacrit CKD MBD -Continue Vitamin D HIV -Continue Medications Lobar PNA -Continue Zithromax Thank you kindly for the consultation
[2021-06-21 20:54] VITALS: BMI 25.4
[2021-06-21] MEDS ORDERED: NA CHLORIDE 0.9% 1,000 ML IV PRN (20:57)
[2021-06-21] MEDS ORDERED: MANNITOL 25% 12.5 GM/50 ML VIAL IV PRN (20:57)
[2021-06-21] MEDS ORDERED: ALBUMIN HUMAN 25% 50 ML IV SCH (21:00)
[2021-06-21] MEDS: AZITHROMYCIN 500 MG/250 ML BAG IVPB SCH (21:18)
[2021-06-21] MEDS: BENZONATATE 100 MG CAP PO PRN (23:38)
[2021-06-22 06:50] LABS: Basophils % 0.5 % (0-1.3); Hematocrit 24.5 % (39.6-49.0); Lymphocytes % 17.3 % (15.3-44.8); MPV 6.8 fL (7.6-11.3); RBC Red Blood Cell Count 2.56 M/uL (4.33-5.43)
[2021-06-22 06:58] LABS: Potassium 3.8 mmol/L (3.5-5.1)
[2021-06-22] MEDS: INSULIN -REGULAR HUMAN 50 UNIT/0.5 ML ML SQ SCH ×2 (07:30→11:30)
[2021-06-22] MEDS: PANTOPRAZOLE 40MG TABLET PO SCH (08:36)
[2021-06-22] MEDS: ISENTRESS 400 MG PO SCH (08:37)
[2021-06-22] MEDS: carvediloL 25 MG TAB PO SCH (08:37)
[2021-06-22] MEDS: MULTIVITAMINS,THERAPEUT 1 TAB PO SCH (08:38)
[2021-06-22] MEDS: PREDNISOLONE ACET 1% OPTH SCH ×2 (08:38→12:53)
[2021-06-22] MEDS: EYE OPTH SCH ×2 (08:38→12:53)
[2021-06-22] MEDS: Lopinavir/Ritonavir Tab PO SCH (08:38)
[2021-06-22] MEDS ORDERED: EPOETIN ALFA 10,000 UNIT/ML VIAL SQ SCH (09:00)
[2021-06-22] MEDS ORDERED: ATROPINE 1% OPTH DROPS 5ML OPTH SCH (09:00)
--- NOTE | 2021-06-22 10:43 | P.PN ---
Date of Service: 06/22/21 Vital Signs Temp Pulse Resp BP Pulse Ox 97.0 F 72 16 145/70 H 100 06/22/21 08:00 06/22/21 08:37 06/22/21 08:00 06/22/21 08:37 06/22/21 08:00 Medications Acetaminophen (Acetaminophen 500 Mg Tab) 500 mg PO Q4HP PRN PRN Reason: TEMP > 100' F Last Admin: 06/20/21 21:21 Dose: 500 mg Documented by: Albuterol Sulfate (Albuterol 2.5 Mg/3 Ml Neb Alicia) 2.5 mg NEB Q6HP PRN PRN Reason: SHORTNESS OF BREATH Atropine Sulfate (Atropine 1% Opth Drops 5ml) 0 drops OPTH DAILY [facility] Last Admin: 06/22/21 08:36 Dose: 1 drops Documented by: Benzonatate (Benzonatate 100 Mg Cap) 100 mg PO TID PRN PRN Reason: COUGH Last Admin: 06/21/21 23:38 Dose: 100 mg Documented by: Carvedilol (Carvedilol 25 Mg Tab) 12.5 mg PO BID [facility] Last Admin: 06/22/21 08:37 Dose: 12.5 mg Documented by: Cholecalciferol (Vitamin D 5,000 Unit Cap) 5,000 unit PO Sa@0900 [facility] Heparin Sodium (Porcine) (Heparin 1,000 Unit/Ml Vial) 6,000 unit IV EVERY HD PRN PRN Reason: AFTER EACH Home Med (Lamivudine [Epivir]) 2.5 ml PO DAILY [facility] Last Admin: 06/22/21 08:38 Dose: 2.5 ml Documented by: Home Med (Lopinavir/Ritonavir) 2 tab PO BID [facility] Last Admin: 06/22/21 08:38 Dose: 2 tab Documented by: Home Med (Prednisolone Acetate/Pf [Prednisolone Acet 1% Eye Drop]) 0 drop OPTH QID [facility] Last Admin: 06/22/21 08:38 Dose: 1 drop Documented by: Home Med (Isentress (Raltegravir) 400 Mg Tablets) 1 ea PO BID [facility] Last Admin: 06/22/21 08:37 Dose: 1 ea Documented by: Hydralazine HCl (Hydralazine Hcl 20 Mg/Ml Vial) 10 mg IV Q6HP PRN PRN Reason: Titrate to SBP (MUST DEFINE) Azithromycin (Zithromax 500 Mg/250 Ml Ns Ivpb) 500 mg in 250 mls @ 250 mls/hr IVPB DAILY@1800 JOSI; Protocol Last Admin: 06/21/21 21:18 Dose: 250 mls Documented by: Ceftriaxone Sodium/Sodium Chloride (Rocephin 1gm/50 Ml Ivpb) 1 gm in 50 mls @ 100 mls/hr IV DAILY@1600 JOSI; Protocol Last Admin: 06/21/21 16:27 Dose: 50 mls Documented by: Albumin Human (Albumin 25%) 50 mls @ 100 mls/hr IV EVERY HD [facility] Insulin Human Regular (Insulin -Regular Human 50 Unit/0.5 Ml Ml) 0 unit SQ ACHS [facility]; Protocol Last Admin: 06/22/21 07:30 Dose: Not Given Documented by: Ipratropium [place] (Ipratropium Brom 0.5mg/2.5ml) 0.5 mg NEB [id number] PRN PRN Reason: SHORTNESS OF BREATH Mannitol (Mannitol 25% 12.5 Gm/50 Ml Vial) 12.5 gm IV EVERY HD PRN PRN Reason: Titrate to SBP (MUST DEFINE) Ondansetron HCl (Ondansetron 4 Mg/2 Ml Vial) 4 mg IV Q6HP PRN PRN Reason: NAUSEA / VOMITING Pantoprazole Sodium (Pantoprazole 40mg Tablet) 40 mg PO ACB [facility]; Protocol Last Admin: 06/22/21 08:36 Dose: 40 mg Documented by: Sodium Chloride (Flush Normal Saline 10 Ml) 10 ml IV BID [facility] Last Admin: 06/22/21 08:38 Dose: 10 ml Documented by: Tramadol HCl (Tramadol Hcl 50 Mg Tab) 50 mg PO Q12H PRN PRN Reason: Pain scale 5-7 (Moderate) Vitamin B Complex/Vit C/Folic Acid (Multivitamins,Therapeut 1 Tab) 1 tab PO D AILY [facility] Last Admin: 06/22/21 08:38 Dose: 1 tab Documented by: Warfarin Sodium (Warfarin Sodium 5 Mg Tab) 15 mg PO MoFr@1700 [facility] Warfarin Sodium (Warfarin Sodium 5 Mg Tab) 20 mg PO SuTuWeThSa@1700 [facility] Last Admin: 06/21/21 16:28 Dose: 20 mg Documented by: Microbiology Results 06/20/21 15:30 Blood - Blood Aerobic Blood Culture - Preliminary No growth in 24 hours. 06/20/21 15:30 Blood - Blood Anaerobic Blood Culture - Preliminary No growth in 24 hours. 06/20/21 15:23 Blood - Blood Aerobic Blood Culture - Preliminary No growth in 24 hours. 06/20/21 15:23 Blood - Blood Anaerobic Blood Culture - Preliminary No growth in 24 hours. Assessment/ Plan: Nephrology Feeling better No chest pain or dyspnea No acute events overnight Vitals, medications, blood work and imaging reviewed in the chart General: In no apparent distress, Cooperative HEENT: Atraumatic Neck: Supple Respiratory: CTA Cardiovascular: No edema, Regular rate/rhythm Gastrointestinal: Soft and benign, Non-distended Musculoskeletal: No clubbing, No contractures Integumentary: No rashes, No cyanosis Neurological: Normal speech Blood work reviewed in the chart. Imagings Data: EXAM DESCRIPTION: RADChest Single View06/20/2021 3:43 pm CLINICAL HISTORY: sob COMPARISON: October 2019 FINDINGS: Mild bilateral pulmonary opacities. Heart is moderately enlarged. Small pleural effusions Postsurgical changes involve the chest IMPRESSION: CHF EXAM DESCRIPTION: CT - Thorax Wo Con - 06/20/2021 8:40 pm CLINICAL HISTORY: cough COMPARISON: June 20, 2021 chest x-ray TECHNIQUE: Computed axial tomography of the chest was obtained. Contrast was not requested. All CT scans are performed using dose optimization technique as appropriate and may include automated exposure control or mA/KV adjustment according to patient size. FINDINGS: The evaluation of mediastinum, irma and vessels is limited secondary to lack of IV contrast administration. Small to moderate bibasilar lung opacities. Mild right middle lobe opacities. Upper lobes are mostly clear Small mediastinal lymph nodes probably reactive nature Small bilateral pleural effusions. Cardiomegaly IMPRESSION: Small to moderate bibasilar lung opacities probably pneumonia Conclusions/Impression: ESRD TTS -HD TIW -Seen and examined on HD HTN with CKD/ CHF -Continue Coreg Diastolic CHF, chronic -HD with UF -Low sodium diet -Continue Coreg Moderate malnutrition -Continue Nepro Anemia in chronic illness -Retacrit prn CKD MBD -Continue Vitamin D HIV -Continue Medications Lobar PNA -Continue Zithromax
[2021-06-22 12:09] VITALS: BP 138/75; TEMP 97.1
[2021-06-22 12:18] LABS: Protime INR 1.73
--- NOTE | 2021-06-22 12:24 | P.DS ---
Admission Date: 06/20/21 Discharge Date: 06/22/21 Disposition: ROUTINE DISCHARGE Discharge Condition: FAIR Reason for Admission: pneumonia - Problems (1) Pneumonia Current Visit: Yes Status: Chronic Qualifiers: Pneumonia type: due to unspecified organism Laterality: bilateral Lung location: lower lobe of lung Qualified Code(s): J18.9 - Pneumonia, unspecified organism (2) ESRD on hemodialysis Onset Date: 09/22/18 Current Visit: No Status: Acute (3) Diabetes mellitus Onset Date: 03/16/16 Current Visit: No Status: Chronic Qualifiers: Diabetes mellitus type: type 2 Diabetes mellitus fci insulin use: without fci use Diabetes mellitus complication status: with kidney complications Chronic kidney disease stage: on chronic dialysis (4) HIV (human immunodeficiency virus infection) Onset Date: 03/16/16 Current Visit: No Status: Chronic Qualifiers: HIV symptom status: unspecified Qualified Code(s): B20 - Human immunodeficiency virus [HIV] disease (5) Chronic anticoagulation Current Visit: Yes Status: Acute (6) H/O mitral valve replacement Current Visit: Yes Status: Acute (7) Chronic anemia Current Visit: Yes Status: Acute (8) HTN (hypertension) Onset Date: 03/16/16 Current Visit: No Status: Chronic Qualifiers: Hypertension type: primary hypertension Qualified Code(s): I10 - Essential (primary) hypertension Brief History of Present Illness: Mr. Goldman is a 66 yo M with HTN, DM, HLD, HIV, ESRD on HD, cirrhosis who presented with cough productive of yellow sputum and malaise beginning on Saturday. He also reported diarrhea and pleuritic pain. Denied nausea and vomiting and wheezing. Intake of food and liquids still adequate. Received his flus hsot a week ago. Sats 86% on RA upon arrival, improved on 2L NC. Patient had a fever. Procal 0.25. Chest x-ray demonstrated CHF. Patient admitted for further management. Hospital Course: Patient admitted to the medical floor. There was concern for pneumonia so he was treated with IV antibiotics-IV Rocephin and Zithromax. Blood cultures yielded no growth, sputum culture grew normal pete. Patient underwent hemodialysis. He was weaned off oxygen to room air which she tolerated. Patient has clinically improved and deemed stable for discharge. Patient is discharged renally dosed Augmentin to continue treatment for pneumonia. Vital Signs/Physical Exam: Temp Pulse Resp BP Pulse Ox 97.1 F 74 16 138/75 98 06/22/21 12:00 06/22/21 12:00 06/22/21 12:00 06/22/21 12:00 06/22/21 12:00 General: Alert, In no apparent distress, Oriented x3 HEENT: Mucous membr. moist/pink Neck: JVD not distended Respiratory: Clear to auscultation bilaterally, Normal air movement Cardiovascular: No edema, Regular rate/rhythm, Normal S1 S2 Gastrointestinal: Soft and benign, No tenderness Neurological: Normal strength at 5/5 x4 extr Laboratory Data at Discharge: WBC 6.00 K/uL (4.3-10.9) D 06/22/21 06:00 Hgb 8.5 g/dL (13.6-17.9) L 06/22/21 06:00 Hct 24.5 % (39.6-49.0) L 06/22/21 06:00 Plt Count 109 K/uL (152-406) L 06/22/21 06:00 PT 22.8 SECONDS (9.5-12.5) H 06/20/21 15:23 INR 1.97 06/20/21 15:23 Sodium 137 mmol/L (136-145) 06/22/21 06:00 Potassium 3.8 mmol/L (3.5-5.1) 06/22/21 06:00 BUN 57 mg/dL (7-18) H D 06/22/21 06:00 Creatinine 9.06 mg/dL (0.55-1.3) H* D 06/22/21 06:00 Glucose 113 mg/dL (74-106) H 06/22/21 06:00 Phosphorus 4.6 mg/dL (2.5-4.9) 06/21/21 05:55 Magnesium 1.7 mg/dL (1.8-2.4) L 06/21/21 05:55 Total Bilirubin 0.7 mg/dL (0.2-1.0) 06/21/21 05:55 AST 18 U/L (15-37) 06/21/21 05:55 ALT 19 U/L (12-78) 06/21/21 05:55 Alkaline Phosphatase 67 U/L (45-117) 06/21/21 05:55 Triglycerides 213 mg/dL (<150) H 06/21/21 05:55 Cholesterol 120 mg/dL (<200) 06/21/21 05:55 HDL Cholesterol 38 mg/dL (40-60) L 06/21/21 05:55 Cholesterol/HDL Ratio 3.16 06/21/21 05:55 Home Medications: Lamivudine [Epivir] 2.5 ml PO DAILY 02/18/18 Lopinavir/Ritonavir [Kaletra 200-50 MG Tablet*] 2 tab PO BID 05/17/18 Raltegravir Potassium [Isentress*] 400 mg PO BID 05/17/18 Folic Acid/Vit B Complex and C [Daija-Kodak Tablet] 1 tab PO DAILY 05/18/18 Atropine 1% Opth Alicia [Atropine 1% Opth Alicia*] 1 drop OP DAILY 06/21/21 Cholecalciferol (Vitamin D3) [Vitamin D 5,000 IU Cap*] 5,000 unit PO SEECOM 06/21/21 Pantoprazole [Protonix Tab*] 40 mg PO DAILY 06/21/21 Prednisolone Acetate/Pf [Prednisolone Acet 1% Eye Drop] 1 drop OP QID 06/21/21 Tramadol HCl [Ultram] 50 mg PO Q8H PRN 06/21/21 Warfarin Sodium 1.5 tab PO SEECOM 06/21/21 Warfarin Sodium 10 mg PO SEECOM 06/21/21 carvediloL [Coreg*] 12.5 mg PO BID 06/21/21 Benzonatate [Tessalon Perle*] 100 mg PO TID PRN #30 cap 06/22/21 Heparin [Heparin 1,000 units/mL *] 6,000 unit IV EVERY HD PRN vial 06/22/21 Mannitol 25% [Mannitol*] 12.5 gm IV EVERY HD PRN vial 06/22/21 New Medications: Benzonatate [Tessalon Perle*] 100 mg PO TID PRN #30 cap PRN Reason: Cough Diet: Renal Followup: Lorne Washburn DO [Primary Care Provider] - Time spent managing pt's care (in minutes): 37
[2021-06-22 15:09] VITALS: O2SAT 98
[2021-06-22] MEDS ORDERED: WARFARIN SODIUM 5 MG TAB PO SCH (17:00)
[2021-06-22] MEDS ORDERED: AMOX/K CLAV 500 MG TAB PO SCH (21:00)
[2021-06-23] MEDS ORDERED: WARFARIN SODIUM 5 MG TAB PO SCH (17:00)
[2021-06-24] MEDS ORDERED: VITAMIN D 5,000 UNIT CAP PO SCH (09:00)
[2021-06-27 04:10] LABS: HBsAG Nonreactive (Nonreactive)
[2021-06-27 20:21] LABS: Hep C Virus RNA (PCR)log <1.18 log IU/mL
== END 2021-06-22 16:30 | disposition home or self-care (01) | DRG 193 ==
LOC: ER 14:22 → ERHOLD 18:51 → 2ND 20:15
PROVIDERS: ADMIT Internal Medicine; ATTEND Internal Medicine
PROC: 5A1D70Z Performance of Urinary Filtration, Intermittent, Less than 6 Hours Per Day (ICD-10-PCS; principal; 2021-06-22)
DX: J18.1 Lobar pneumonia, unspecified organism (principal); N18.6 End stage renal disease; I50.33 Acute on chronic diastolic (congestive) heart failure; I13.2 Hypertensive heart and chronic kidney disease with heart failure and with stage 5 chronic kidney disease, or end stage renal disease; E44.0 Moderate protein-calorie malnutrition; E11.22 Type 2 diabetes mellitus with diabetic chronic kidney disease; D64.9 Anemia, unspecified; E78.5 Hyperlipidemia, unspecified; B18.2 Chronic viral hepatitis C; K74.60 Unspecified cirrhosis of liver; Z21 Asymptomatic human immunodeficiency virus [HIV] infection status; Z79.84 Long term (current) use of oral hypoglycemic drugs; Z79.52 Long term (current) use of systemic steroids; Z79.01 Long term (current) use of anticoagulants; Z68.25 Body mass index [BMI] 25.0-25.9, adult; Z79.899 Other long term (current) drug therapy; Z95.2 Presence of prosthetic heart valve; Z99.2 Dependence on renal dialysis; Z79.82 Long term (current) use of aspirin; Z20.822 Contact with and (suspected) exposure to COVID-19
CPT/HCPCS: 36415; 71045; 71250; 80048; 80053; 80061; 80076; 82947; 83605; 83615; 83735; 83880; 84100; 84145; 84439; 84443; 84484; 85025; 85610; 86704; 86706; 86803; 87040; 87070; 87205; 87340; 87522; 90935; 93005; 94760; 96365; 96366; 99285; J0456; J0696; J1644; J3490; J7050; Q5105; U0003

== ENCOUNTER 2021-06-27 08:34 | Emergency (ER) | payer OTHER ==
[2021-06-27 09:14] LABS: Absolute Lymphocytes (CBC) 0.8 K/uL (0.7-4.9); Basophils % 0.8 % (0-1.3); Hematocrit 25.9 % (39.6-49.0); Lymphocytes % 16.9 % (15.3-44.8); MPV 6.8 fL (7.6-11.3); RBC Red Blood Cell Count 2.65 M/uL (4.33-5.43)
[2021-06-27 09:15] LABS: Protime INR 2.92
--- NOTE | 2021-06-27 09:43 | RAD REPORT ---
EXAM DESCRIPTION: Segun Single View06/27/2021 9:04 am CLINICAL HISTORY: Chest pain COMPARISON: June 19, 2021 FINDINGS: No significant change in the bibasilar lung opacities which may represent pneumonia. Small right pleural effusion may be present. Upper lobes appear clear. Upper lobe vessels are prominent indicative of pulmonary venous hypertension Heart remains enlarged. Postsurgical changes involve the chest
[2021-06-27 10:08] LABS: Albumin 3.1 g/dL (3.4-5.0); Bilirubin Direct 0.1 mg/dL (0-0.2); Bilirubin Total 0.3 mg/dL (0.2-1.0); Magnesium 1.9 mg/dL (1.8-2.4); Potassium 3.3 mmol/L (3.5-5.1)
--- NOTE | 2021-06-27 12:13 | EKG ---
Test Date: 2021-06-27 Test Time: 08:36:40 Plan Coordinator: TOMÁS MEASUREMENT RESULTS: Intervals: Rate: 90 AK: 184 QRSD: 94 QT: 408 QTc: 499 Rush: P: -22 AK: 184 QRS: 68 T: 74 INTERPRETIVE STATEMENTS: Sinus rhythm with fusion complexes and premature atrial complexes Prolonged QT Abnormal ECG Compared to ECG 06/20/2021 15:15:27 Atrial premature complex(es) now present Fusion complex(es) now present Prolonged QT interval now present Sinus arrhythmia no longer present Electronically Signed On 06-27-21 12:12:05 CDT by Rafael Bedolla
--- NOTE | 2021-06-27 12:41 | ER ---
Nurse's Notes [facility] Name: Salvatore Goldman Age: 66 yrs Sex: Male : 1955 Arrival Date: 06/27/2021 Time: 08:37 Bed 3 Private MD: Lorne Washburn Diagnosis: Supraventricular tachycardia Presentation: 06/27 08:39 Chief complaint: EMS states: CALLED TO DIALYSIS FOR RAPID HEART RATE, SVT 170'S. bp Coronavirus screen: At this time, the client does not indicate any symptoms associated with coronavirus-19. Ebola Screen: No symptoms or risks identified at this time. Initial Sepsis Screen: Does the patient meet any 2 criteria? No. Patient's initial sepsis screen is negative. Does the patient have a suspected source of infection? No. Patient's initial sepsis screen is negative. Risk Assessment: Do you want to hurt yourself or someone else? Patient reports no desire to harm self or others. Onset of symptoms was June 27, 2021 at 08:00. Care prior to arrival: Medication(s) given: Adenosine, 12 mg, x 1, IV initiated. 20 GA, in the right forearm. 08:39 Method Of Arrival: EMS: [facility] bp 08:39 Acuity: NARDA 3 bp Triage Assessment: 08:39 General: Appears in no apparent distress. comfortable, Behavior is calm, cooperative, bp appropriate for age. Pain: Denies pain. EENT: No deficits noted. Neuro: Level of Consciousness is awake, alert, obeys commands, Oriented to Appropriate for age. Cardiovascular: Rhythm is sinus rhythm. Respiratory: No deficits noted. GI: No signs and/or symptoms were reported involving the gastrointestinal system. : No signs and/or symptoms were reported regarding the genitourinary system. Derm: No deficits noted. Musculoskeletal: No deficits noted. Historical: - Allergies: 08:38 No Known Allergies; ap3 - Home Meds: 08:38 carvedilol 12.5 mg Oral tab 1 tab 2 times per day [Active]; Isentress 400 mg Oral tab 1 ap3 tab 2 times per day [Active]; Kaletra 200-50 mg Oral tab 2 tabs 2 times per day [Active]; lamivudine 10 mg/mL Oral soln 2.5 mL once daily [Active]; pantoprazole 40 mg Oral TbEC 1 tab once daily [Active]; prednisolone acetate 1 % Opht drps 1 drop 4 times per day [Active]; Daija-Kodak 0.8 mg Oral tab daily [Active]; Vitamin [place] [address] unit WEEKLY [Active]; warfarin 10 mg Oral tab 1.5 tabs on M,W, F and 1 tab on T,Thurs, Sat, Sun [Active]; Epclusa 400-100 mg oral tab 1 tab once daily [Active]; - PMHx: 08:38 Cirrhosis; Diabetes - NIDDM; Dialysis; heart valve; Hepatitis; HIV; Hyperlipidemia; ap3 Karposi Sarcoma (left leg); kidney failure; L arm HD access; - Immunization history:: Adult Immunizations up to date, Client reports receiving the 2nd dose of the Covid vaccine. - Social history:: Smoking status: Patient denies any tobacco usage or history of. Screenin:39 Abuse screen: Denies threats or abuse. Denies injuries from another. Nutritional bp screening: No deficits noted. Tuberculosis screening: No symptoms or risk factors identified. Fall Risk None identified. Assessment: 08:39 General: SEE TRIAGE NOTE. bp Vital Signs: 08:39 BP 134 / 57; Pulse 87; Resp 17; Temp 98.3; Pulse Ox 100% ; bp 09:39 BP 132 / 77; Pulse 82; Resp 15; Pulse Ox 100% on R/A; ap3 10:43 BP 134 / 78; Pulse 82; Pulse Ox 100% on R/A; ap3 ED Course: 08:37 Patient arrived in ED. as 08:37 Lorne Washburn DO is Private Physician. as 08:38 Paco Mckeon PA is PHCP. jl7 08:38 Manuel Montgomery MD is Attending Physician. jr8 08:39 Josiah Schwab RN is Primary Nurse. bp 08:39 Maintain EMS IV. Dressing intact. Good blood return noted. Site clean \T\ dry. Gauge \T\ bp site: 20 GA R FA. 08:39 Arm band placed on. bp 08:39 Patient has correct armband on for positive identification. Bed in low position. Call bp light in reach. Side rails up X2. 08:40 EKG done, by ED staff, reviewed by Paco COOMBS. em1 08:41 Triage completed. bp 10:32 Baradhi, Rafael, MD is Referral Physician. jr8 10:44 No provider procedures requiring assistance completed. IV discontinued, intact, ap3 bleeding controlled, No redness/swelling at site. Pressure dressing applied. Administered Medications: No medications were administered Outcome: 10:32 Discharge ordered by MD. jr8 10:44 Discharged to home ambulatory. ap3 10:44 Condition: stable 10:44 Discharge instructions given to patient, Instructed on discharge instructions, follow up and referral plans. Demonstrated understanding of instructions, follow-up care. 10:50 Patient left the ED. ap3 Signatures: Angely Merchant Eric em1 Paco Mckeon PA PA jr8 Jase Hughes RN RN jl7 Josiah Schwab RN RN bp Michelle Whitney RN RN ap3 Corrections: (The following items were deleted from the chart) 08:44 08:39 Immunization history: Adult Immunizations up to date, bp bp
--- NOTE | 2021-06-27 12:41 | EDPHYS ---
Physician Documentation [facility] Name: Salvatore Goldman Age: 66 yrs Sex: Male : 1955 Arrival Date: 06/27/2021 Time: 08:37 Bed 3 Private MD: Lorne Washburn ED Physician Manuel Montgomery HPI: 06/27 10:21 This 66 yrs old Black Male presents to ER via EMS with complaints of svt. jr8 10:21 Onset: The symptoms/episode began/occurred acutely, today. This is a 66-year-old male jr8 that presented to the emergency room after experiencing about of SVT. Patient stated that he was in the dialysis chair finishing up when he felt heart palpitations. Denied any other acute complaints at that time. EMS was called and found patient to be in SVT. Adenosine was given with resolvent of arrhythmia. Patient hemodynamically stable upon arrival and currently without any complaints.. Historical: - Allergies: 08:38 No Known Allergies; ap3 - Home Meds: 08:38 carvedilol 12.5 mg Oral tab 1 tab 2 times per day [Active]; Isentress 400 mg Oral tab 1 ap3 tab 2 times per day [Active]; Kaletra 200-50 mg Oral tab 2 tabs 2 times per day [Active]; lamivudine 10 mg/mL Oral soln 2.5 mL once daily [Active]; pantoprazole 40 mg Oral TbEC 1 tab once daily [Active]; prednisolone acetate 1 % Opht drps 1 drop 4 times per day [Active]; Daija-Kodak 0.8 mg Oral tab daily [Active]; Vitamin D Oral 05623 unit WEEKLY [Active]; warfarin 10 mg Oral tab 1.5 tabs on M,W, F and 1 tab on T,Thurs, Sat, Sun [Active]; Epclusa 400-100 mg oral tab 1 tab once daily [Active]; - PMHx: 08:38 Cirrhosis; Diabetes - NIDDM; Dialysis; heart valve; Hepatitis; HIV; Hyperlipidemia; ap3 Karposi Sarcoma (left leg); kidney failure; L arm HD access; - Immunization history:: Adult Immunizations up to date, Client reports receiving the 2nd dose of the Covid vaccine. - Social history:: Smoking status: Patient denies any tobacco usage or history of. ROS: 10:21 Eyes: Negative for injury, pain, redness, and discharge, ENT: Negative for injury, jr8 pain, and discharge, Neck: Negative for injury, pain, and swelling, Respiratory: Negative for shortness of breath, cough, wheezing, and pleuritic chest pain, Abdomen/GI: Negative for abdominal pain, nausea, vomiting, diarrhea, and constipation, Back: Negative for injury and pain, MS/Extremity: Negative for injury and deformity, Skin: Negative for injury, rash, and discoloration, Neuro: Negative for headache, weakness, numbness, tingling, and seizure. 10:21 Cardiovascular: Positive for palpitations. Exam: 10:21 Constitutional: This is a well developed, well nourished patient who is awake, alert, jr8 and in no acute distress. Cardiovascular: Regular rate and rhythm with a normal S1 and S2. No gallops, murmurs, or rubs. Normal PMI, no JVD. No pulse deficits. Respiratory: Lungs have equal breath sounds bilaterally, clear to auscultation and percussion. No rales, rhonchi or wheezes noted. No increased work of breathing, no retractions or nasal flaring. Abdomen/GI: Soft, non-tender, with normal bowel sounds. No distension or tympany. No guarding or rebound. No evidence of tenderness throughout. Skin: Warm, dry with normal turgor. Normal color with no rashes, no lesions, and no evidence of cellulitis. MS/ Extremity: Pulses equal, no cyanosis. Neurovascular intact. Full, normal range of motion. Neuro: Awake and alert, GCS 15, oriented to person, place, time, and situation. Cranial nerves II-XII grossly intact. Motor strength 5/5 in all extremities. Sensory grossly intact. Vital Signs: 08:39 BP 134 / 57; Pulse 87; Resp 17; Temp 98.3; Pulse Ox 100% ; bp 09:39 BP 132 / 77; Pulse 82; Resp 15; Pulse Ox 100% on R/A; ap3 10:43 BP 134 / 78; Pulse 82; Pulse Ox 100% on R/A; ap3 MDM: 08:38 Patient medically screened. jr8 10:21 Data reviewed: vital signs, nurses notes, lab test result(s), EKG, radiologic studies, jr8 plain films. Data interpreted: Pulse oximetry: on room air is 100 %. Interpretation: normal. Counseling: I had a detailed discussion with the patient and/or guardian regarding: the historical points, exam findings, and any diagnostic results supporting the discharge/admit diagnosis, lab results, radiology results, the need for outpatient follow up, a improvement manager, to return to the emergency department if symptoms worsen or persist or if there are any questions or concerns that arise at home. 06/27 08:44 Order name: Cardiac monitoring; Complete Time: 08:45 jr8 06/27 08:44 Order name: EKG - Nurse/Tech; Complete Time: 08:45 jr8 06/27 08:44 Order name: IV Saline Lock; Complete Time: :45 jr8 06/27 08:44 Order name: Labs collected and sent; Complete Time: :45 jr8 06/27 08:44 Order name: O2 Per Protocol; Complete Time: 08:45 jr8 06/27 08:44 Order name: O2 Sat Monitoring; Complete Time: :45 jr8 Administered Medications: No medications were administered Disposition: 10:52 Co-signature as Attending Physician, Manuel Montgomery MD I agree with the assessment and rn plan of care. Attestation: The patient's history, exam findings, diagnostics, and a summary of any interventions or procedures was reviewed in detail with Paco COOMBS. Disposition Summary: 06/27/21 10:32 Discharge Ordered Location: Home jr8 Problem: new jr8 Symptoms: have improved jr8 Condition: Stable jr8 Diagnosis - Supraventricular tachycardia jr8 Followup: jr8 - With: Rafael Bedolla MD - When: 1 - 2 days - Reason: Recheck today's complaints, Continuance of care, Re-evaluation by your physician Discharge Instructions: - Discharge Summary Sheet jr8 - Supraventricular Tachycardia, Adult jr8 Forms: - Medication Reconciliation Form jr8 - Thank You Letter jr8 - Antibiotic Education jr8 - Prescription Opioid Use jr8 Signatures: Manuel Montgomery MD MD rn Roszak, Josh, PA PA jr8 Josiah Schwab RN RN bp Michelle Whitney RN RN ap3 Corrections: (The following items were deleted from the chart) 08:44 08:39 Immunization history: Adult Immunizations up to date, bp bp
[2021-06-27 15:07] VITALS: TEMP 98.3; O2SAT 100
[2021-06-27 15:09] VITALS: BP 134/78
== END 2021-06-27 10:50 | disposition home or self-care (01) ==
LOC: ER 08:34
DX: I47.1 Supraventricular tachycardia (principal); E11.22 Type 2 diabetes mellitus with diabetic chronic kidney disease; N18.6 End stage renal disease; B20 Human immunodeficiency virus [HIV] disease; C46.0 Kaposi's sarcoma of skin; K74.60 Unspecified cirrhosis of liver; Z99.2 Dependence on renal dialysis; Z79.01 Long term (current) use of anticoagulants
CPT/HCPCS: 36415; 71045; 80048; 80076; 83735; 83880; 85025; 85610; 93005; 99284

== ENCOUNTER 2021-07-03 00:42 | Emergency (ER) | payer OTHER ==
[2021-07-03 01:08] LABS: Absolute Lymphocytes (CBC) 1.1 K/uL (0.7-4.9); Basophils % 0.5 % (0-1.3); Hematocrit 25.1 % (39.6-49.0); Lymphocytes % 20.5 % (15.3-44.8); MPV 6.7 fL (7.6-11.3)
[2021-07-03 01:22] LABS: Troponin (Emerg Dept Use Only) 0.02 ng/mL (0.0-0.045)
--- NOTE | 2021-07-03 01:32 | EDPHYS ---
Physician Documentation [facility] Name: Salvatore Goldman Age: 66 yrs Sex: Male : 1955 Arrival Date: 07/03/2021 Time: 00:44 Bed 5 Private MD: ED Physician Brennan Nicole HPI: 07/03 00:51 This 66 yrs old Black Male presents to ER via EMS with complaints of Palpitations. sp3 00:51 66-year-old male with a history of hypertension, diabetes, end-stage renal disease, HIV sp3 presents status post palpitation episode where patient was found in SVT by EMS was given 12 mg of adenosine which broke SVT from a rate of 175 narrow complex regular tachycardia to sinus rhythm at 93 bpm prior to arrival. Patient symptoms completely went away after receiving the adenosine. Patient denies chest pain, shortness of breath, back pain, syncope, headache, fever, URI symptoms, continued symptoms, any other symptoms at this time. Review of systems otherwise negative.. Historical: - Allergies: 00:55 No Known Allergies; bb - Home Meds: 00:55 carvedilol 12.5 mg Oral tab 1 tab 2 times per day [Active]; Epclusa 400-100 mg Oral tab bb 1 tab once daily [Active]; Isentress 400 mg Oral tab 1 tab 2 times per day [Active]; Kaletra 200-50 mg Oral tab 2 tabs 2 times per day [Active]; lamivudine 10 mg/mL Oral soln 2.5 mL once daily [Active]; pantoprazole 40 mg Oral TbEC 1 tab once daily [Active]; prednisolone acetate 1 % Opht drps 1 drop 4 times per day [Active]; Daija-Kodak 0.8 mg Oral tab daily [Active]; Vitamin D Oral 76069 unit WEEKLY [Active]; warfarin 10 mg Oral tab 1.5 tabs on M,W, F and 1 tab on T,Thurs, Sat, Sun [Active]; - PMHx: 00:55 Cirrhosis; Diabetes - NIDDM; Dialysis; heart valve; Hepatitis; HIV; Hyperlipidemia; bb Karposi Sarcoma (left leg); kidney failure; L arm HD access; - Immunization history:: Adult Immunizations up to date, Client reports receiving the 2nd dose of the Covid vaccine. - Social history:: Smoking status: unknown. ROS: 00:53 Constitutional: Negative for fever, chills, and weight loss, Eyes: Negative for injury, sp3 pain, redness, and discharge, ENT: Negative for injury, pain, and discharge, Neck: Negative for injury, pain, and swelling, Respiratory: Negative for shortness of breath, cough, wheezing, and pleuritic chest pain, Abdomen/GI: Negative for abdominal pain, nausea, vomiting, diarrhea, and constipation, Back: Negative for injury and pain, Skin: Negative for injury, rash, and discoloration, Neuro: Negative for headache, weakness, numbness, tingling, and seizure. 00:53 All other systems are negative. Exam: 00:53 Constitutional: This is a well developed, well nourished patient who is awake, alert, sp3 and in no acute distress. Head/Face: Normocephalic, atraumatic. Eyes: Pupils equal round and reactive to light, extra-ocular motions intact. Lids and lashes normal. Conjunctiva and sclera are non-icteric and not injected. Cornea within normal limits. Periorbital areas with no swelling, redness, or edema. Neck: Trachea midline, no thyromegaly or masses palpated, and no cervical lymphadenopathy. Supple, full range of motion without nuchal rigidity, or vertebral point tenderness. No Meningismus. Chest/axilla: Normal chest wall appearance and motion. Nontender with no deformity. No lesions are appreciated. Cardiovascular: Regular rate and rhythm with a normal S1 and S2. No gallops, murmurs, or rubs. Normal PMI, no JVD. No pulse deficits. Respiratory: Lungs have equal breath sounds bilaterally, clear to auscultation and percussion. No rales, rhonchi or wheezes noted. No increased work of breathing, no retractions or nasal flaring. Abdomen/GI: Soft, non-tender, with normal bowel sounds. No distension or tympany. No guarding or rebound. No evidence of tenderness throughout. MS/ Extremity: Pulses equal, no cyanosis. Neurovascular intact. Full, normal range of motion. Neuro: Awake and alert, GCS 15, oriented to person, place, time, and situation. Cranial nerves II-XII grossly intact. Motor strength 5/5 in all extremities. Sensory grossly intact. Cerebellar exam normal. Normal gait. Psych: Awake, alert, with orientation to person, place and time. Behavior, mood, and affect are within normal limits. 00:54 ECG was reviewed by the Attending Physician. EKG demonstrates normal sinus rhythm at 96 sp3 bpm with normal intervals, normal QRS, normal axis, normal ST/T-segment without evidence of ischemia. Vital Signs: 00:49 BP 146 / 84; Pulse 96; Resp 16 S; Temp 98.2(O); Pulse Ox 97% on R/A; Weight 70.31 kg bb (R); Height 5 ft. 7 in. (170.18 cm) (R); Pain 0/10; 02:11 Pulse 85; bs2 00:49 Body Mass Index 24.28 (70.31 kg, 170.18 cm) bb MDM: 00:45 Patient medically screened. sp3 00:53 Data reviewed: vital signs, nurses notes, EMS record. ED course: Patient symptoms are sp3 completely resolved and patient is in a normal sinus rhythm. Will check potassium and electrolytes as well as EKG. If normal then will discharge patient home at this time. At this time I am not highly suspicious for acute coronary syndrome, metabolic derangement, pulmonary molybdenum, myocardial infarction, thoracic dissection or aneurysm, sepsis, shock, or any other critical findings at this time.. 01:30 ED course: Laboratory values reviewed and demonstrate no significant abnormality sp3 deviating from his baseline. Patient remains in sinus rhythm and we will discharge him at this time.. 07/03 00:46 Order name: Basic Metabolic Panel; Complete Time: 30 sp3 07/03 00:46 Order name: CBC with Diff; Complete Time: sp3 07/03 00:46 Order name: Magnesium; Complete Time: sp3 07/03 00:46 Order name: Troponin (emerg Dept Use Only); Complete Time: : sp3 07/03 00:46 Order name: EKG; Complete Time: 00:48 sp3 07/03 00:46 Order name: Cardiac monitoring; Complete Time: sp3 07/03 00:46 Order name: EKG - Nurse/Tech; Complete Time: sp3 07/03 00:46 Order name: IV Saline Lock; Complete Time: sp3 07/03 00:46 Order name: Labs collected and sent; Complete Time: 01:53 sp3 Administered Medications: No medications were administered Disposition Summary: 07/03/21 01:31 Discharge Ordered Location: Home sp3 Condition: Stable sp3 Diagnosis - Supraventricular tachycardia sp3 Followup: sp3 - With: Private Physician - When: - Reason: Re-evaluation by your physician Discharge Instructions: - Discharge Summary Sheet sp3 - Supraventricular Tachycardia, Adult sp3 Forms: - Medication Reconciliation Form sp3 - Thank You Letter sp3 - Antibiotic Education sp3 - Prescription Opioid Use sp3 Signatures: Dispatcher [employer] Zunilda Kendall RN RN Brennan Cruz MD MD sp3
--- NOTE | 2021-07-03 01:32 | ER ---
Nurse's Notes [facility] Name: Salvatore Goldman Age: 66 yrs Sex: Male : 1955 Arrival Date: 07/03/2021 Time: 00:44 Bed 5 Private MD: Diagnosis: Supraventricular tachycardia Presentation: 07/03 00:49 Chief complaint: EMS states: pt called EMS for report of him having palpitations on bb arrival pt was in SVT with a rate in the 170s they gave him adenosine 12 mg and HR went down into the 90s. Coronavirus screen: At this time, the client does not indicate any symptoms associated with coronavirus-19. Ebola Screen: No symptoms or risks identified at this time. Initial Sepsis Screen: Does the patient meet any 2 criteria? No. Patient's initial sepsis screen is negative. Does the patient have a suspected source of infection? No. Patient's initial sepsis screen is negative. Risk Assessment: Do you want to hurt yourself or someone else? Patient reports no desire to harm self or others. Onset of symptoms was July 03, 2021. 00:49 Method Of Arrival: EMS: [facility] bb 00:49 Acuity: NARDA 2 bb Historical: - Allergies: 00:55 No Known Allergies; bb - Home Meds: 00:55 carvedilol 12.5 mg Oral tab 1 tab 2 times per day [Active]; Epclusa 400-100 mg Oral tab bb 1 tab once daily [Active]; Isentress 400 mg Oral tab 1 tab 2 times per day [Active]; Kaletra 200-50 mg Oral tab 2 tabs 2 times per day [Active]; lamivudine 10 mg/mL Oral soln 2.5 mL once daily [Active]; pantoprazole 40 mg Oral TbEC 1 tab once daily [Active]; prednisolone acetate 1 % Opht drps 1 drop 4 times per day [Active]; Daija-Kodak 0.8 mg Oral tab daily [Active]; [place] 60106 unit WEEKLY [Active]; warfarin 10 mg Oral tab 1.5 tabs on M,W, F and 1 tab on T,Thurs, Sat, Sun [Active]; - PMHx: 00:55 Cirrhosis; Diabetes - NIDDM; Dialysis; heart valve; Hepatitis; HIV; Hyperlipidemia; bb Karposi Sarcoma (left leg); kidney failure; L arm HD access; - Immunization history:: Adult Immunizations up to date, Client reports receiving the 2nd dose of the Covid vaccine. - Social history:: Smoking status: unknown. Screenin:00 Abuse screen: Denies threats or abuse. Denies injuries from another. Nutritional bs2 screening: No deficits noted. Tuberculosis screening: No symptoms or risk factors identified. Fall Risk None identified. Assessment: 01:00 General: Appears in no apparent distress. comfortable, well groomed, well developed, bs2 well nourished, Behavior is calm, cooperative, appropriate for age. Pain: Denies pain. Neuro: No deficits noted. Cardiovascular: No deficits noted. Reports None Parent/caregiver reports patient has had pt was awaken by chest pain and could feel heart pounding, called 911. EMS discovered pt was in SVT, adenosine was given pt converted and has no complaints at this time. 01:00 Respiratory: No deficits noted. GI: No deficits noted. No signs and/or symptoms were bs2 reported involving the gastrointestinal system. : No deficits noted. No signs and/or symptoms were reported regarding the genitourinary system. EENT: No deficits noted. No signs and/or symptoms were reported regarding the EENT system. Derm: No deficits noted. No signs and/or symptoms reported regarding the dermatologic system. Musculoskeletal: No deficits noted. No signs and/or symptoms reported regarding the musculoskeletal system. Vital Signs: 00:49 BP 146 / 84; Pulse 96; Resp 16 S; Temp 98.2(O); Pulse Ox 97% on R/A; Weight 70.31 kg bb (R); Height 5 ft. 7 in. (170.18 cm) (R); Pain 0/10; 02:11 Pulse 85; bs2 00:49 Body Mass Index 24.28 (70.31 kg, 170.18 cm) bb ED Course: 00:44 Patient arrived in ED. mw2 00:44 Brennan Nicole MD is Attending Physician. sp3 00:55 Triage completed. bb 00:55 Arm band placed on Patient placed in an exam room, on a stretcher, on best worker, bb on pulse oximetry. EKG completed in triage. Results shown to MD. 01:00 Patient has correct armband on for positive identification. Bed in low position. Call bs2 light in reach. Side rails up X 1. cardiac monitor on. Pulse ox on. NIBP on. Door closed. Warm blanket given. 01:00 No provider procedures requiring assistance completed. Maintain EMS IV. Dressing bs2 intact. Good blood return noted. Site clean \T\ dry. Gauge \T\ site: 20 right forearm. 01:52 Yesica Barksdale, RN is Primary Nurse. bs2 Administered Medications: No medications were administered Outcome: :31 Discharge ordered by . sp3 01:57 Patient left the ED. mw2 Signatures: Zunilda Loomis RN RN bb Parmjit Sena mw2 Brennan Nicole MD MD sp3 Yesica Barksdale, RN RN bs2
[2021-07-03 02:06] VITALS: BP 146/84; TEMP 98.2; O2SAT 97
--- OUTSIDE RECORDS SUMMARY | 2021-07-15 04:26 | XMS REPORT | Continuity of Care Document ---
:1955 Author Organization [facility] t Address [address] [place] [address] Care Team Providers Name Role Phone RADHA ROSALES Primary Care Physician Unavailable MELVIN SHER Attending Clinician Unavailable DELANEY OCAMPO Attending Clinician Unavailable SOBEIDA BARRY Attending Clinician Unavailable ELA LORENZANA Attending Clinician Unavailable BOBBY Attending Clinician Unavailable Bay WHALEY Attending Clinician Unavailable ELA LORENZANA Attending Clinician Unavailable Reno SANTOS Attending Clinician Unavailable Reno MAYA Attending Clinician Unavailable KIERSTEN Attending Clinician Unavailable Reno SANTOS Attending Clinician Unavailable SOBEIDA BARRY Attending Clinician Unavailable Xavier LOPEZ Attending Clinician Unavailable Lashonda NATHAN Attending Clinician Unavailable RUPERTO Attending Clinician Unavailable Lashonda MON Attending Clinician Unavailable CHRISTOS Attending Clinician Unavailable KYA Attending Clinician Unavailable MD AYE GONZALEZ Attending Clinician Unavailable MD GINA BOLAND Attending Clinician Unavailable MANDY Attending Clinician Unavailable WANDA Attending Clinician Unavailable BRI CAMPBELL Attending Clinician Unavailable TROY SOLANO Attending Clinician Unavailable SANJUANA BREWER Attending Clinician Unavailable CHARI Attending Clinician Unavailable BHAVNA GERBER Attending Clinician Unavailable KAZ TURPIN Attending Clinician Unavailable EDENILSON ANTONIO Attending Clinician Unavailable Xavier HOLLOWAY Attending Clinician Unavailable ELIANA Attending Clinician Unavailable SHILA JAFFE MD, MEric Attending Clinician Unavailable RAHUL OCAMPO Admitting Clinician Unavailable LISA Admitting Clinician Unavailable MD AYE GONZALEZ Admitting Clinician Unavailable KAZ TURPIN Admitting Clinician Unavailable TROY SOLANO Admitting Clinician Unavailable SANJUANA BREWER Admitting Clinician Unavailable Xavier HOLLOWAY Admitting Clinician Unavailable ELIANA Admitting Clinician Unavailable SHILA JAFFE MD, M.D., M Admitting Clinician Unavail able Payers Payer Name Policy Type Policy Number Effective Date Expiration Date Xavier rick MEDICARE A B [id number] 2010 00:00:00 MEDICARE PART A & [id number] 2010 B 00:00:00 MEDICARE PART A [id number] 2010 \\T\\ B 00:00:00 CDC REVIEW [id number] 2020 00:00:00 Problems This patient has no known problems. Allergies, Adverse Reactions, Alerts Allergy Allergy Status Severity Reaction(s) Onset Inactive Treating Comm ents Source Name Type Date Date Clinician CODEINE Allergy Active Med Other 12-02 00:00: 00 NO KNOWN Drug Active [facility] This patient has no known medications. Vital Signs Vital Name Observation Time Observation Value Comments Source HEIGHT 2020-02-26 00:00:00 170.2 cm WEIGHT 2020-02-26 00:00:00 73 kg HEIGHT 2020-04-21 00:00:00 170.2 cm WEIGHT 2020-04-21 00:00:00 69.854 kg HEIGHT 2020-04-21 00:00:00 170.2 cm WEIGHT 2020-04-21 00:00:00 69.854 kg HEIGHT 2020-02-26 00:00:00 170.2 cm WEIGHT 2020-02-26 00:00:00 73 kg Procedures Procedure Date / Time Performed Performing Clinician Randy e 3O3C95R 2020-06-29 00:00:00 ENCPL 4V9I27Y 2020-06-29 00:00:00 ENCPL 4Y2L76D 2020-06-29 00:00:00 ENCPL 7N2V02M 2020-06-29 00:00:00 ENCPL 8U2P58K 2020-06-29 00:00:00 ENCPL 0X9T37R 2020-06-29 00:00:00 ENCPL 3R2W79A 2020-06-29 00:00:00 ENCPL 0R5T40I 2020-06-29 00:00:00 ENCPL 4Z5W77Z 2020-06-29 00:00:00 ENCPL 0J7Z09L 2020-06-29 00:00:00 ENCPL 2X8G60E 2020-06-29 00:00:00 ENCPL 5R3R64A 2020-06-29 00:00:00 ENCPL 8Y4Q64D 2020-06-29 00:00:00 ENCPL 0O6Q31O 2020-06-29 00:00:00 ENCPL 1W3T86X 2020-03-05 00:00:00 ENCPL 4I6X85N 2020-03-05 00:00:00 ENCPL 6G9D12K 2020-03-05 00:00:00 ENCPL 1N1B77J 2020-03-05 00:00:00 ENCPL 5J3C86E 2020-03-05 00:00:00 ENCPL 9L3V72H 2020-03-05 00:00:00 ENCPL 9W0S39B 2020-03-05 00:00:00 ENCPL 5W4M78X 2020-03-05 00:00:00 ENCPL 5N6G60Y 2020-03-05 00:00:00 ENCPL 0W4B88K 2020-03-05 00:00:00 ENCPL 0Y8Q96H 2020-03-05 00:00:00 ENCPL 5Q7T05J 2020-03-05 00:00:00 ENCPL 6J9W80A 2020-03-05 00:00:00 ENCPL 9B7I58T 2020-03-05 00:00:00 ENCPL 3I5L29M 2020-03-05 00:00:00 ENCPL 2E9E21Y 2020-03-05 00:00:00 ENCPL 3A0G83A 2020-03-05 00:00:00 ENCPL 3J1N75O 2020-03-05 00:00:00 ENCPL 8S3N09J 2020-03-05 00:00:00 ENCPL 0L4V13O 2020-03-05 00:00:00 ENCPL 7M8Q88T 2020-03-05 00:00:00 ENCPL 7O1T13H 2019-01-08 00:00:00 ENCPL 4E3D56C 2019-01-08 00:00:00 ENCPL 0U6K58E 2019-01-08 00:00:00 ENCPL 1A0W72H 2019-01-08 00:00:00 ENCPL Encounters Start End Encounter Admission Attending Care Care Encounter Source Date/Time Date/Time Type Type Clinicians Facility Department ID 2020-07-06 Outpatient ALOK CHRISTOS, CHACLR ENCCLR [id number] ENCCLR 21:26:21 N MELVIN 2020-02-26 Inpatient ER JORGE LUIS OCAMPO [facility] [id number] [facility] 23:10:00 [facility] 2021-07-17 2021-07-17 Outpatient JOSE MIGUEL BARRY [facility] [id number] [place] 00:00:00 00:00:00 [facility] 2021-07-17 2021-07-17 Outpatient HARRIETT [facility] [id number] [place] 00:00:00 00:00:00 [facility] 2021-07-17 2021-07-17 Outpatient BOBBY [facility] [id number] [place] 00:00:00 00:00:00 [facility] 2021-07-10 2021-07-10 Outpatient JOSE MIGUEL BARRY [facility] [id number] [place] 00:00:00 00:00:00 [facility] 2021-07-03 2021-07-03 Outpatient JOSE MIGUEL BARRY [facility] [id number] [place] 07:40:01 14:04:21 [facility] 2021-07-03 2021-07-03 Outpatient BOBBY [facility] [id number] [place] 08:05:52 08:18:57 [facility] 2021-07-03 2021-07-03 Outpatient Danis [facility] [id number] [place] 08:05:52 08:18:57 [facility] 2021-07-03 2021-07-03 Outpatient JUDD [facility] [id number] [place] 00:00:00 00:00:00 [facility] 2021-07-03 2021-07-03 Outpatient HARRIETT [facility] [id number] [place] 00:00:00 00:00:00 [facility] 2021-06-26 2021-06-26 Outpatient JOSE MIGUEL BARRY [facility] [id number] [place] 07:54:30 08:35:16 [facility] 2021-06-12 2021-06-12 Outpatient JOSE MIGUEL BARRY [facility] [id number] [place] 07:56:03 08:33:36 [facility] 2021-05-29 2021-05-29 Outpatient JOSE MIGUEL BARRY [facility] [id number] [place] 08:28:20 09:29:41 [facility] 2021-05-15 2021-05-15 Outpatient JOSE MIGUEL BARRY [facility] [id number] [place] 08:03:38 08:31:36 [facility] 2021-05-01 2021-05-01 Outpatient [facility] [id number] [place] 08:40:51 08:46:27 [facility] 2021-05-01 2021-05-01 Outpatient JOSE MIGUEL BARRY [facility] [id number] [place] 08:04:58 08:32:39 [facility] 2021-05-01 2021-05-01 Outpatient DANIELLE [facility] [id number] [place] 00:00:00 00:00:00 [facility] 2021-04-24 2021-04-24 Outpatient JOSE MIGUEL BARRY [facility] [id number] [place] 08:03:45 08:22:54 [facility] 2021-04-17 2021-04-17 Outpatient JOSE MIGUEL BARRY [facility] [id number] [place] 08:38:35 08:58:58 [facility] 2021-04-10 2021-04-10 Outpatient FRANCESCO [facility] [id number] [place] 00:00:00 00:00:00 [facility] 2021-03-27 2021-03-27 Outpatient DANIELLE [facility] [id number] [place] 12:10:09 12:36:55 [facility] 2021-03-27 2021-03-27 Outpatient JOSE MIGUEL BARRY [facility] [id number] [place] 09:45:17 10:13:09 [facility] 2021-03-07 2021-03-07 Outpatient JOSE MIGUEL BARRY [facility] [id number] [place] 12:04:05 12:23:09 [facility] 2021-02-20 2021-02-20 Outpatient [facility] [id number] [place] 08:34:14 08:39:27 [facility] 2021-02-20 2021-02-20 Outpatient JOSE MIGUEL BARRY [facility] [id number] [place] 08:09:20 08:34:30 [facility] 2021-02-20 2021-02-20 Outpatient HARRIETT [facility] [id number] [place] 00:00:00 00:00:00 [facility] 2021-02-19 2021-02-19 Emergency BURCH, [facility] [id number] [place] 00:00:00 00:00:00 KRISTI [address] 2021-02-06 2021-02-06 Outpatient [facility] [id number] [place] 09:14:10 09:17:27 [facility] 2021-02-06 2021-02-06 Outpatient JOSE MIGUEL BARRY [facility] [id number] [place] 08:49:54 09:14:22 [facility] 2021-02-06 2021-02-06 Outpatient DANIELLE [facility] [id number] [place] 00:00:00 00:00:00 [facility] 2021-02-06 2021-02-06 Outpatient JUDD [facility] [id number] [place] 00:00:00 00:00:00 [facility] 2021-01-23 2021-01-23 Outpatient DANIELLE [facility] [id number] [place] 11:31:24 12:44:32 [facility] 2021-01-23 2021-01-23 Outpatient JOSE MIGUEL BARRY [facility] [id number] [place] 10:14:28 10:36:06 [facility] 2021-01-10 2021-01-10 Outpatient JOSE MIGUEL BARRY [facility] [id number] [place] 07:22:07 11:41:14 [facility] 2021-01-09 2021-01-09 Outpatient [facility] [id number] [place] 09:13:08 09:20:36 [facility] 2021-01-09 2021-01-09 Outpatient HARRIETT [facility] [id number] [place] 08:19:59 09:12:38 [facility] 2021-01-09 2021-01-09 Outpatient JESSICA [facility] [id number] [place] 00:00:00 00:00:00 [facility] 2021-01-09 2021-01-09 Outpatient HARRIETT [facility] [id number] [place] 00:00:00 00:00:00 [facility] 2021-01-04 2021-01-04 Outpatient JOSE MIGUEL BARRY [facility] [id number] [place] 11:36:44 12:43:02 [facility] 2021-01-02 2021-01-02 Outpatient JOSE MIGUEL BARRY [facility] [id number] [place] 07:27:21 12:04:53 [facility] 2021-01-02 2021-01-02 Outpatient JOSE MIGUEL BARRY [facility] [id number] [place] 00:00:00 00:00:00 [facility] 2020-12-30 2020-12-30 Outpatient [facility] [id number] [place] 00:00:00 00:00:00 [facility] 2020-12-19 2020-12-19 Outpatient JOSE MIGUEL BARRY [facility] [id number] [place] 09:18:35 09:59:02 Health 2020-12-16 2020-12-16 [facility] [id number] [place] 10:25:40 10:35:40 [facility] 2020-12-16 2020-12-16 [facility] [id number] [place] 00:00:00 00:00:00 [facility] 2020-11-28 2020-11-28 Emergency X VENITA, [facility] [id number] [facility] 22:52:00 22:52:00 JAMIL jessee [facility] 2020-11-24 2020-11-24 [facility] [id number] [place] 13:25:44 13:59:48 [facility] 2020-11-10 2020-11-10 [facility] [id number] [place] 00:00:00 00:00:00 [facility] 2020-11-09 2020-11-09 Outpatient JONNY MON [facility] [id number] [place] 07:51:58 08:14:33 Health 2020-10-27 2020-10-27 [facility] [id number] [place] 12:02:34 12:25:02 [facility] 2020-10-20 2020-10-20 [facility] [id number] [place] 00:00:00 00:00:00 [facility] 2020-10-20 2020-10-20 [facility] [id number] [place] 00:00:00 00:00:00 [facility] 2020-10-06 2020-10-06 [facility] [id number] [place] 11:11:47 11:11:47 [facility] 2020-07-08 2020-07-08 Outpatient SUMEET SHER [id number] [facility] 08:37:00 08:37:00 MELVIN [facility] 2020-05-09 2020-06-28 Inpatient VO, [facility] [id number] [place] 00:00:00 00:00:[address] 2020-04-21 2020-04-21 Emergency ER [facility] Emergency [id number] [facility] 20:49:00 20:49:00 2019-11-09 2019-11-09 Outpatient [facility] [id number] [facility] 08:51:00 08:51:00 2019-09-12 2019-09-12 Emergency WANDA [facility] Myles4 [id number] [place] 00:00:00 00:00:00 [facility] 2017-11-18 2017-11-20 Inpatient C AMIE, [facility] [id number] [facility] 13:43:00 13:54:00 [facility] 2017-11-07 2017-11-07 Emergency E [facility] [id number] [facility] 20:22:00 20:22:00 [facility] 2017-10-06 2017-10-06 Emergency E ELIANA, [facility] MED [id number] [facility] 14:25:00 14:25:00 [facility] Results Test Description Test Time Test Comments Results Result Comments Source HIV1 RNA # Plas RADHA DL=20 2021-07-05 16:15:28 Test Item Value Reference Range Interpretation Comme nts HIV1 RNA SerPl Ql RADHA+probe (test code = 58317-6) NOT DETECTED Not detected This test utilizes FDA cleared ERICH AmpliPrep/ERICH TaqMan HIV-1 test 2.0 from [employer] which allows quantitation of viral loads between 20 and 10,000,000 copies/mL of plasma. Whenthe result is positive but less than 20 copies/mL of HIV-1 RNA, the test result will be reported as detected but less than 20 copies/mL". The ERICH AmpliPrep/ ERICH TaqManHIV-1 test, version 2.0 is notintended for use as a screening test for the presence of HIV-1 RNA in blood or a diagnostic test to confirm the presence of HIV infection. This test is intended for use as an aid in the management of patients with HIV-1 infection. CD4+CD8+ Cells NFr [id number] 13:12:03 Test Item Value Reference Range Interpretation Comments T-cell CD4 subset 480 cells/uL See_Comment [Automate d message] pnl Bld (test code The syste m which = 83729-8) generated this result transmitted ref erence range: 431-1,62 3. The reference range was not used to interpr et this result as normal/abnormal . CD3+CD4+ 1.54 ratio 0.86-2.05 Cells/CD3+CD8+ Cells Bld (test code = 61242-3) CD4+CD8+ Cells NFr 40.0 % 25.0-56.0 Bld (test code = 35055-5) RPR [id number] 14:32:36 Test Item Value Reference Range Interpretation Comments T pallidum Ab Ser Ql Aggl (test NEGATIVE Negative, Equivocal code = 71381-3) Reagin+T pallidum IgG+IgM NEGATIVE Negative SerPl-Imp (test code = 38343-7) AG HEPATITIS B [id number] 11:26:00 Test Item Value Reference Range Interpretation Comments AG HEPATITIS B SURFACE (test NEGATIVE SCREEN NEGATIVE code = HBSAG) AB HEPATITIS A [id number] 03:08:00 Test Item Value Reference Range Interpretation Comments AB HEPATITIS A IGM (test code = HAVMAB) AB HEPATITIS B [id number] 03:08:00 Test Item Value Reference Range Interpretation Comments AB HEPATITIS B SURFACE 96.5 mIU/mL Immunity>9.9 Sta tus of Immunity (test code = HBSAB) Anti-HBs Level --- I ncons istent with Imm unity 0.0 - 9.9Consis tent with Immunity >9.9 AB HEPATITIS A [id number] 03:08:00 Test Item Value Reference Range Interpretation Comments AB HEPATITIS A IGM Negative Negative Performed At: (test code = HAVMAB) [facility] [id number] [place], [place] [id number] lauren Chapman MD Ph:[phone] AB HEPATITIS B [id number] 03:08:00 Test Item Value Reference Range Interpretation Comments AB HEPATITIS B SURFACE 96.5 mIU/mL Immunity>9.9 Sta tus of Immunity (test code = HBSAB) Anti-HBs Level --- I ncons istent with Imm unity 0.0 - 9.9Consis tent with Immunity >9.9 COVID 19 Asymptomatic IH [id number] 09:05:00 Test Item Value Reference Range Interpretation Comments COVID 19 Asymptomatic NEGATIVE Negative Per ma nufacturer, IH AG (test code = negative results should COVNONPUIAG) be treated aspresumptive a nd, if inconsistent wi th clinical signs andsymptoms or necessary for p atient management, viktor uld betested with a n alternative mol ecular assay. Negative resultsdo not p reclude SARS-CoV-2 infe ction and should not be usedas the sole basis for patient man agement decisions. Neg ative results should be considered in t he context of apat ient's recent exposure s, history, prese nce of clinicalsigns a nd symptoms consis tent with COVID-19. SARS-CoV-2 (COVID-19) RNA [Presence] in Respiratory specimen by RADHA with probe [id number] 10:30:29 Test Item Value Reference Range Interpretation Comments SARS-CoV-2 (COVID-19) RNA Not detected Not-Detected [Presence] in Respiratory specimen by RADHA with probe detection (test code = 65972-7) SARS-CoV-2 (COVID-19) RNA [Presence] in Respiratory specimen by RADHA with probe [id number] 18:12:42 Test Item Value Reference Range Interpretation Comments SARS-CoV-2 (COVID-19) RNA Not detected Not-Detected [Presence] in Respiratory specimen by RADHA with probe detection (test code = 16801-7) SARS-CoV-2 (COVID-19) RNA [Presence] in Respiratory specimen by RADHA with probe [id number] 12:55:22 Test Item Value Reference Range Interpretation Comments SARS-CoV-2 (COVID-19) RNA Not detected Not-Detected [Presence] in Respiratory specimen by RDAHA with probe detection (test code = 82582-7) SARS-CoV-2 (COVID-19) RNA [Presence] in Respiratory specimen by RADHA with probe [id number] 23:46:30 Test Item Value Reference Range Interpretation Comments SARS-CoV-2 (COVID-19) RNA Not detected Not-Detected [Presence] in Respiratory specimen by RADHA with probe detection (test code = 26106-1) TROPONIN [id number] 23:28:00 Test Item Value Reference Range Interpretation [...] failure, acidosis, acute neurological disease, and persistent tachyarrhythmia.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 ID - AKSHAT LBASIC METABOLIC [id number] 23:26:00 Test Item Value Reference Range Interpretation [...] S NOT APPLICABLE FOR DIALYSIS PATIEN TS. 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 ID - AKSHAT LB-TYPE NATRIURETIC FACTOR (BNP)2020-04-21 23:25:00 Test Item Value Reference Range Interpretation Comments B-TYPE NATRIURETIC PEPTIDE 1507 pg/mL 0-100 H (BEAKER) (test code = 700) 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 ID - AKSHAT LPT/[id number] 23:09:00 Test Item Value Reference Range Interpretation [...] is2.5-3.5 for patients wiht mechanical heart valves.CBC W/PLT COUNT & AUTO [id number] 22:49:00 Test Item Value Reference Range Interpretation [...] (test code = 2801) RAD, CHEST, 2 [id number] 22:26:00Reason for exam:->SHORTNESS OF BREATH FINAL REPORT [...] No acute abnormality.Additional findings: None. Signed: [facility] Verified Date/Time: 04/21/2020 22:26:38 POCT-GLUCOSE [id number] 15:36:00 Test Item Value Reference Range Interpretation Comments POC-GLUCOSE METER 133 mg/dL 70-110 H : TESTED A T [facility] 6720 ([employer]) (test code = [employer] [facility], 1538) 64818: 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/Techni kush ID = [id number] for Phyllis Rao POCT-GLUCOSE [id number] 12:38:00 Test Item Value Reference Range Interpretation Comments POC-GLUCOSE METER 100 mg/dL 70-110 : TESTED A T [facility] 6720 ([employer]) (test code = [facility] [employer] [facility], 1538) 01924: 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/Techni kush ID = [id number] for Phyllis Rao [id number] 09:28:00 Test Item Value Reference Range Interpretation Comments PARTIAL THROMBOPLASTIN TIME 67.8 seconds 22.5-36.0 H (BEAKER) (test code = 760) [id number] 07:14:00 Test Item Value Reference Range Interpretation Comments PARTIAL THROMBOPLASTIN TIME 146.9 seconds 22.5-36.0 H (BEAKER) (test code = 760) CBC W/PLT COUNT & AUTO [id number] 05:40:00 Test Item Value Reference Range Interpretation [...] (BEAKER) (test code = 2801) BASIC METABOLIC [id number] 05:24:00 Test Item Value Reference Range Interpretation [...] S NOT APPLICABLE FOR DIALYSIS PATIEN TS. 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 ID - LORENZO WPROTHROMBIN TIME/[id number] 04:52:00 Test Item Value Reference Range Interpretation [...] T [facility] 6720 (BEAKER) (test code = [facility], 1538) 26882: 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/Techni kush ID = [id number] for KATIA RAO [id number] 21:05:00 Test Item Value Reference Range Interpretation Comments PARTIAL THROMBOPLASTIN TIME 66.8 seconds 22.5-36.0 H (BEAKER) (test code = 760) [id number] 19:49:00 Test Item Value Reference Range Interpretation Comments PARTIAL THROMBOPLASTIN TIME > seconds 22.5-36.0 HH (BEAKER) (test code = 760) POCT-GLUCOSE [id number] 17:09:00 Test Item Value Reference Range Interpretation Comments POC-GLUCOSE METER 145 mg/dL 70-110 H : TESTED A T [facility] 6720 (BEAKER) (test code = [facility], 1538) 12314: 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/Techni kush ID = [id number] for Christina Chisholm POCT-GLUCOSE [id number] 12:10:00 Test Item Value Reference Range Interpretation Comments POC-GLUCOSE METER 113 mg/dL 70-110 H : TESTED A T [facility] 6720 (BEAKER) (test code = [facility], 1538) 86444: 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/Techni kush ID = [id number] for Eugenia Chisholmia [id number] 11:50:00 Test Item Value Reference Range Interpretation Comments PARTIAL THROMBOPLASTIN TIME 96.6 seconds 22.5-36.0 H (BEAKER) (test code = 760) POCT-GLUCOSE [id number] 08:28:00 Test Item Value Reference Range Interpretation Comments POC-GLUCOSE METER 150 mg/dL 70-110 H : TESTED A T [facility] 6720 (BEAKER) (test code = [facility] [place], 1538) 01166: 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/Techni kush ID = [id number] for Christina Chisholm BASIC METABOLIC [id number] 06:15:00 Test Item Value Reference Range Interpretation [...] S NOT APPLICABLE FOR DIALYSIS PATIEN TS. 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 ID - BSCBC W/PLT COUNT & AUTO [id number] 06:12:00 Test Item Value Reference Range Interpretation [...] 0-1 PERCENT (BEAKER) (test code = 2801) [id number] 05:43:00 Test Item Value Reference Range Interpretation Comments PARTIAL THROMBOPLASTIN TIME 61.8 seconds 22.5-36.0 H (BEAKER) (test code = 760) PROTHROMBIN [id number] 05:42:00 Test Item Value Reference Range Interpretation [...] mg/dL 70-110 H : TESTED A T [facility] 6720 (BEAKER) (test code = MARIA GOSMAN [place], 1538) 33015: 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/Techni kush ID = [id number] for AN BENITA ERNANDEZ [id number] 22:49:00 Test Item Value Reference Range Interpretation Comments PARTIAL THROMBOPLASTIN TIME 86.0 seconds 22.5-36.0 H (BEAKER) (test code = 760) [id number] 15:29:00 Test Item Value Reference Range Interpretation [...] INR is2.5-3.5 for patients wiht mechanical heart valves.[id number] 15:29:00 Test Item Value Reference Range Interpretation Comments PARTIAL THROMBOPLASTIN TIME 90.0 seconds 22.5-36.0 H (BEAKER) (test code = 760) BASIC METABOLIC [id number] 12:20:00 Test Item Value Reference Range Interpretation [...] S NOT APPLICABLE FOR DIALYSIS PATIEN TS. 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 ID - ANTONIA FCBC W/PLT COUNT & AUTO [id number] 07:29:00 Test Item Value Reference Range Interpretation [...] 0-1 PERCENT (BEAKER) (test code = 2801) [id number] 07:20:00 Test Item Value Reference Range Interpretation Comments PARTIAL THROMBOPLASTIN TIME 61.2 seconds 22.5-36.0 H (BEAKER) (test code = 760) While on warfarin.BASIC METABOLIC [id number] 07:06:00 Test Item Value Reference Range Interpretation [...] S NOT APPLICABLE FOR DIALYSIS PATIEN TS. 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 ID - ANTONIA FPROTHROMBIN TIME/[id number] 06:37:00 Test Item Value Reference Range Interpretation [...] for patients wiht mechanical heart valves.While on warfarin.[id number] 23:03:00 Test Item Value Reference Range Interpretation Comments PARTIAL THROMBOPLASTIN TIME 54.4 seconds 22.5-36.0 H (BEAKER) (test code = 760) POCT-GLUCOSE [id number] 22:30:00 Test Item Value Reference Range Interpretation Comments POC-GLUCOSE METER 96 mg/dL 70-110 : TESTED A T [facility] 6720 (BEAKER) (test code = [facility] [employer] [facility], 1538) 38349: 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/Techni kush ID = [id number] for BENITA MASSEY POCT-GLUCOSE [id number] 15:59:00 Test Item Value Reference Range Interpretation Comments POC-GLUCOSE METER 133 mg/dL 70-110 H : TESTED A T [facility] 6720 (BEAKER) (test code = [facility] [employer] [facility], 1538) 58374: 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/Techni kush ID = [id number] for Phyllis Rao [id number] 15:38:00 Test Item Value Reference Range Interpretation Comments PARTIAL THROMBOPLASTIN TIME 88.8 seconds 22.5-36.0 H (BEAKER) (test code = 760) POCT-GLUCOSE [id number] 12:08:00 Test Item Value Reference Range Interpretation Comments POC-GLUCOSE METER 130 mg/dL 70-110 H : TESTED A T [facility] 6720 (BEAKER) (test code = [facility] [employer] [facility], 1538) 04241: 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/Techni kush ID = [id number] for Phyllis Rao PROTHROMBIN TIME/[id number] 11:48:00 Test Item Value Reference Range Interpretation [...] INR is2.5-3.5 for patients wiht mechanical heart valves.[id number] 09:34:00 Test Item Value Reference Range Interpretation Comments PARTIAL THROMBOPLASTIN TIME 74.6 seconds 22.5-36.0 H (BEAKER) (test code = 760) CBC W/PLT COUNT & AUTO [id number] 01:34:00 Test Item Value Reference Range Interpretation [...] (BEAKER) (test code = 2801) BASIC METABOLIC [id number] 01:29:00 Test Item Value Reference Range Interpretation [...] S NOT APPLICABLE FOR DIALYSIS PATIEN TS. 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 ID - PIAYA [id number] 01:13:00 Test Item Value Reference Range Interpretation Comments PARTIAL THROMBOPLASTIN TIME 56.4 seconds 22.5-36.0 H (BEAKER) (test code = 760) POCT-GLUCOSE [id number] 23:59:00 Test Item Value Reference Range Interpretation Comments POC-GLUCOSE METER 134 mg/dL 70-110 H : TESTED A T [facility] 6720 (BEAKER) (test code = [facility] [employer] [facility], 153) 64768: 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/Techni kush ID = [id number] for SCOOTER MIRZA [id number] 18:52:00 Test Item Value Reference Range Interpretation Comments PARTIAL THROMBOPLASTIN TIME 47.3 seconds 22.5-36.0 H (BEAKER) (test code = 760) [id number] 18:18:00 Test Item Value Reference Range Interpretation Comments PARTIAL THROMBOPLASTIN TIME > seconds 22.5-36.0 HH (BEAKER) (test code = 760) POCT-GLUCOSE [id number] 18:15:00 Test Item Value Reference Range Interpretation Comments POC-GLUCOSE METER 143 mg/dL 70-110 H : TESTED A T [facility] 6720 (BEAKER) (test code = [facility] [employer] [facility], 153) 87208: 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/Techni kush ID = [id number] for DO BBINS, RANDI POCT-GLUCOSE [id number] 12:15:00 Test Item Value Reference Range Interpretation Comments POC-GLUCOSE METER 123 mg/dL 70-110 H : TESTED A T [facility] 6720 (BEAKER) (test code = [facility] [employer] [facility], 1538) 00297: 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/Techni kush ID = [id number] for DO BBINS, RANDI [id number] 11:28:00 Test Item Value Reference Range Interpretation Comments PARTIAL THROMBOPLASTIN TIME 57.3 seconds 22.5-36.0 H (BEAKER) (test code = 760) POCT-GLUCOSE [id number] 06:49:00 Test Item Value Reference Range Interpretation Comments POC-GLUCOSE METER 86 mg/dL 70-110 : TESTED A T [facility] 6720 (BEAKER) (test code = [facility] [employer] [facility], 1538) 33079: 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/Techni kush ID = [id number] for SCOOTER MAYA BASIC METABOLIC [id number] 06:19:00 Test Item Value Reference Range Interpretation [...] S NOT APPLICABLE FOR DIALYSIS PATIEN TS. 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 ID - PIAYA LCBC W/PLT COUNT & AUTO [id number] 04:57:00 Test Item Value Reference Range Interpretation [...] PERCENT (BEAKER) (test code = 2801) POCT-GLUCOSE [id number] 02:25:00 Test Item Value Reference Range Interpretation Comments POC-GLUCOSE METER 69 mg/dL 70-110 L : TESTED A T [facility] 6720 (BEAKER) (test code = [facility] [place], 1538) 75084: 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/Techni kush ID = [id number] for KEIT H, RADHA FL, FLUORO, NON-SPECIFIC, UP TO 1 [id number] 01:47:00Reason for exam:- >orif right femurFluoroscopic unit utilized for a procedure performed in the OR. No interpretation was requested. Refer to the operative report for findings. Refer to PACS for patient radiation dose information.[id number] 20:21:00 Test Item Value Reference Range Interpretation Comments PARTIAL THROMBOPLASTIN TIME 41.1 seconds 22.5-36.0 H (BEAKER) (test code = 760) 6 hours after starting heparin infusion and as indicated per sliding scalePOCT- GLUCOSE [id number] 17:57:00 Test Item Value Reference Range Interpretation Comments POC-GLUCOSE METER 82 mg/dL 70-110 : TESTED A T [facility] 6720 (BEAKER) (test code = [facility] [place], 1538) 16199: 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/Techni kush ID = [id number] for ALMA DELIA PATHAK [id number] 17:14:00 Test Item Value Reference Range Interpretation Comments FERRITIN (BEAKER) (test code = 5182.19 ng/mL 5.00-275.00 H 361) 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 ID - JOEL BEASLEY, TIBC, % SAT. (WITHOUT FERRITIN)2020-02-27 16:01:00 Test Item Value Reference Range Interpretation Comments IRON (BEAKER) (test code = 547) 125.0 ug/dL 40.0-160.0 TOTAL IRON BINDING CAPACITY 219 ug/dL 250-450 L (BEAKER) (test code = 769) IRON % SATURATION (2) (BEAKER) 57 % 20-55 H (test code = 2590) 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 ID - JOEL [id number] 12:54:00 Test Item Value Reference Range Interpretation Comments PARTIAL THROMBOPLASTIN TIME 41.5 seconds 22.5-36.0 H (BEAKER) (test code = 760) Prior to initiating heparinPLATELET [id number] 12:51:00 Test Item Value Reference Range Interpretation Comments PLATELET COUNT (BEAKER) (test 116 K/CU MM 150-450 L code = 756) 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 ID - Anibal clotSARS-COV2/RT-PCR ([facility])2020-02-27 12:46:00 Test Item Value Reference Range Interpretation Comments SARS-COV2/RT-PCR (test code = Negative Not Detected, Negative 7807806) SARS-COV-2 PERFORMING LAB [facility] (test code = 2950582) Negative result for this test determines that [...] individuals suspected of COVID-19 by their healthcare provider.This test [...] 564(g) of the Act.Fact Sheet for Healthcare Providers:https://www.[employer].com/sites/default/files/product/documents/Fact_Shee h_SW_Yhjoeidkw_Jnvk_NWBS-XhL-1.pdfFact Sheet for Healthcare Patients:https://www.[employer].com/sites/default/files/product/ documents/Wafk_Jjexv_Gzvnagyh_Reqh_BMYL-XnD-2.pdfPerforming Laboratory:[facility], [place] [address]EYAY-IUOGTGR METER 2020-02-27 12:12:00 Test Item Value Reference Range Interpretation Comments POC-GLUCOSE METER 90 mg/dL 70-110 : TESTED A T [facility] 6720 (JARROD) (test code = [facility], 1538) 09034: 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/Techni kush ID = [id number] for SELENA BIRCH HEPATITIS B SURFACE [id number] 11:32:00 Test Item Value Reference Range Interpretation Comments HEPATITIS B SURFACE ANTIGEN (2) Nonreactive Nonreactive (JARROD) (test code = 2585) Specimen is considered negative for HBsAg.RAD, WRIST, 2 VIEWS, [id number] 09:19:00Reason for exam:->fall, immbolityFINAL REPORT TECHNIQUE: Frontal, oblique, and lateral views of the left wrist. INDICATION: Fall immobility. COMPARISON: None. FINDINGS:No acute fractures or dislocations.Joint spaces are within normal limits.There are atherosclerotic calcifications of the vessels. Surgical clipsproject over the distal radius.. IMPRESSION:No acute osseous abnormality. Signed: Bhavin Artis Verified Date/Time: 02/27/2020 09:19:08 Reading Location: [address] Body ReadingRoom [id number] 08:30:00 Test Item Value Reference Range Interpretation Comments POTASSIUM (JARROD) (test code = 5.0 meq/L 3.5-5.1 379) 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 ID - PIAYA LRAD, PELVIS, 1 OR 2 [id number] 07:23:00Reason for exam:->femoral neck fxFINAL REPORT RAD, [...] ileoileal lines are intact. Signed: Radha Lisa MDRjerryort Verified Date/Time: 02/27/2020 07:23:52 Reading Location: [place] [id number] Neuro Reading Room RAD, HIP, 2 VIEWS, [id number] 07:23:00Reason for exam:- >femoral neck fractureFINAL REPORT [...] MDReport Verified Date/Time: 02/27/2020 07:23:52 Reading Location: [address] Neuro Reading Room POCT-GLUCOSE [id number] 06:26:00 Test Item Value Reference Range Interpretation Comments POC-GLUCOSE METER 72 mg/dL 70-110 : TESTED A T [facility] 6720 (BEAKER) (test code = [facility] [place], 1538) 46864: 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/Techni kush ID = [id number] for BRITNEY BRISAALEJANDROSCOOTER COMPREHENSIVE METABOLIC [id number] 02:44:00 Test Item Value Reference Range Interpretation [...] S NOT APPLICABLE FOR DIALYSIS PATIEN TS. 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 ID Patel ODEN LPROTHROMBIN TIME/[id number] 02:03:00 Test Item Value Reference Range Interpretation [...] INR is2.5-3.5 for patients wiht mechanical heart valves.[id number] 01:56:00 Test Item Value Reference Range Interpretation Comments PHOSPHORUS (BEAKER) (test code = 7.3 mg/dL 2.3-4.7 H 604) 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 ID - AKSHAT [id number] 01:56:00 Test Item Value Reference Range Interpretation Comments MAGNESIUM (BEAKER) (test code = 1.9 mg/dL 1.6-2.6 627) 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 ID Patel ODEN LCBC W/PLT COUNT & AUTO [id number] 01:33:00 Test Item Value Reference Range Interpretation [...] (test code = 2801) AFB CULTURE + [id number] 07:33:00 Test Item Value Reference Range Interpretation Comments CULTURE (BEAKER) (test No acid-fast bacilli code = 1095) isolated in 42 days AFB SMEAR (BEAKER) No acid fast bacilli (test code = 994) seen FUNGUS CULTURE + [id number] 17:26:00 Test Item Value Reference Range Interpretation Comments CULTURE (BEAKER) (test No fungus isolated in code = 1095) 28 days FUNGUS SMEAR (BEAKER) No fungi seen (test code = 1406) PROTHROMBIN [id number] 00:05:00 Test Item Value Reference Range Interpretation Comments PT PATIENT (test code = PTP) 18.2 SECONDS 9.3-12.9 H INTERNATIONAL NORMAL RATIO 1.57 INR Unit 0.8-1.2 H (test code = INR) POCT-GLUCOSE [id number] 13:35:00 Test Item Value Reference Range Interpretation Comments POC-GLUCOSE METER 116 mg/dL 70-110 H TESTED AT [place] [address] ([facility]) (test code = [facility] 1538) [address] POCT-GLUCOSE [id number] 08:54:00 Test Item Value Reference Range Interpretation Comments POC-GLUCOSE METER 99 mg/dL 70-110 TESTED AT [place] [address] ([facility]) (test code = [facility] Humber[employer] [facility] [address] 1538) [id number] 06:34:00 Test Item Value Reference Range Interpretation Comments PARTIAL THROMBOPLASTIN TIME 46.7 seconds 22.5-36.0 H ([facility]) (test code = 760) While on warfarin.PROTHROMBIN TIME/[id number] 06:33:00 Test Item Value Reference Range Interpretation Comments PROTIME ([facility]) (test code = 26.5 seconds 11.7-14.7 H 759) INR ([facility]) (test code = 370) 2.6 <=5.9 RECOMMENDED [...] H (BEAKER) (test code = 413) POCT-GLUCOSE [id number] 21:38:00 Test Item Value Reference Range Interpretation Comments POC-GLUCOSE METER 192 mg/dL 70-110 H TESTED AT [facility] 6720 (BEAKER) (test code = [facility] 1538) [address] POCT-GLUCOSE [id number] 13:01:00 Test Item Value Reference Range Interpretation Comments POC-GLUCOSE METER 200 mg/dL 70-110 H TESTED AT [facility] 67[address] ([facility]) (test code = [facility] [place] 1538) [address] POCT-GLUCOSE [id number] 08:00:00 Test Item Value Reference Range Interpretation Comments POC-GLUCOSE METER 123 mg/dL 70-110 H TESTED AT [facility] 67[address] ([facility]) (test code = [facility] [place] 1538) [address] [id number] 06:40:00 Test Item Value Reference Range Interpretation Comments PARTIAL THROMBOPLASTIN TIME 83.1 seconds 22.5-36.0 H ([facility]) (test code = 760) [id number] 05:54:00 Test Item Value Reference Range Interpretation Comments PARTIAL THROMBOPLASTIN TIME > seconds 22.5-36.0 HH ([facility]) (test code = 760) PROTHROMBIN TIME/[id number] 05:30:00 Test Item Value Reference Range Interpretation Comments PROTIME ([facility]) (test code = 24.1 seconds 11.7-14.7 H 759) INR ([facility]) (test code = 370) 2.3 <=5.9 [...] (BEAKER) (test code = 413) BASIC METABOLIC [id number] 05:10:00 Test Item Value Reference Range Interpretation [...] APPLICABLE FOR DIALYSIS PATIEN TS. OCCULT BLOOD, [id number] 23:46:00 Test Item Value Reference Range Interpretation Comments FECAL OCCULT BLOOD (BEAKER) (test Negative Negative code = 618) POCT-GLUCOSE [id number] 22:52:00 Test Item Value Reference Range Interpretation Comments POC-GLUCOSE METER 192 mg/dL 70-110 H TESTED AT [facility] 6720 (BEAKER) (test code = [facility] 1538) [address] POCT-GLUCOSE [id number] 17:11:00 Test Item Value Reference Range Interpretation Comments POC-GLUCOSE METER 149 mg/dL 70-110 H TESTED AT [place] [address] ([facility]) (test code = [facility] 1538) [address] PROTHROMBIN TIME/[id number] 13:00:00 Test Item Value Reference Range Interpretation Comments PROTIME ([facility]) (test code = 19.9 seconds 11.7-14.7 H 759) INR ([facility]) (test code = 370) 1.8 <=5.9 RECOMMENDED COUMADIN/WARFARIN INR THERAPY RANGESSTANDARD DOSE: 2.0 - 3.0 Includes: PROPHYLAXIS forvenous thrombosis, systemic embolization; TREATMENT for venous thrombosis and/or pulmonary embolus.HIGH RISK: Target INR is 2.5-3.5 for patients with mechanical heart valves.While on warfarin.POCT-GLUCOSE METER 2019-01-04 12:14:00 Test Item Value Reference Range Interpretation Comments POC-GLUCOSE METER 134 mg/dL 70-110 H TESTED AT [place] [address] ([facility]) (test code = [facility] 1538) [address] RAD, CHEST, 1 VIEW, NON [id number] 08:02:00Reason for exam:->Post opShould this be performed [...] Bloom Verified Date/Time: 01/04/2019 08:02:18 Reading Location: [facility] C013W Consult Reading Room Electronicallysigned by: EDENILSON BLOOM M.D. on 01/04/2019 08:02 AMPOCT-GLUCOSE [id number] 07:42:00 Test Item Value Reference Range Interpretation Comments POC-GLUCOSE METER 98 mg/dL 70-110 TESTED AT [place] [address] ([facility]) (test code = [facility] [address] 1538) BASIC METABOLIC [id number] 07:28:00 Test Item Value Reference Range Interpretation [...] 150-450 code = 756) MEAN PLATELET VOLUME ([facility]) 9.1 fL 9.4-12.4 L (test code = 754) NUCLEATED RED BLOOD CELLS 1 /100 WBC 0-0 H ([facility]) (test code = 413) [id number] 06:08:00 Test Item Value Reference Range Interpretation Comments PARTIAL THROMBOPLASTIN TIME 70.6 seconds 22.5-36.0 H ([facility]) (test code = 760) [id number] 23:32:00 Test Item Value Reference Range Interpretation Comments PARTIAL THROMBOPLASTIN TIME 77.2 seconds 22.5-36.0 H ([facility]) (test code = 760) POCT-GLUCOSE [id number] 21:55:00 Test Item Value Reference Range Interpretation Comments POC-GLUCOSE METER 150 mg/dL 70-110 H TESTED AT [facility] 67[address] ([facility]) (test code = [facility] 1538) [address] [id number] 18:25:00 Test Item Value Reference Range Interpretation Comments PARTIAL THROMBOPLASTIN TIME 71.2 seconds 22.5-36.0 H ([facility]) (test code = 760) POCT-GLUCOSE [id number] 13:45:00 Test Item Value Reference Range Interpretation Comments POC-GLUCOSE METER 375 mg/dL 70-110 H Notified R Toy PÉREZ/TESTED ([facility]) (test code = AT [facility] [address] [place] [address]) [facility] 7[address] 0 [id number] 10:26:00 Test Item Value Reference Range Interpretation Comments PARTIAL THROMBOPLASTIN TIME 94.0 seconds 22.5-36.0 H ([facility]) (test code = 760) While on warfarin.PROTHROMBIN TIME/[id number] 10:24:00 Test Item Value Reference Range Interpretation Comments PROTIME ([facility]) (test code = 19.3 seconds 11.7-14.7 H 759) INR ([facility]) (test code = 370) 1.7 <=5.9 RECOMMENDED COUMADIN/WARFARIN INR THERAPY RANGESSTANDARD DOSE: 2.0 - 3.0 Includes: PROPHYLAXIS forvenous thrombosis, systemic embolization; TREATMENT for venous thrombosis and/or pulmonary embolus.HIGH RISK: Target INR is 2.5-3.5 for patients with mechanical heart valves.While on warfarin.POCT-GLUCOSE METER 2019-01-03 08:36:00 Test Item Value Reference Range Interpretation Comments POC-GLUCOSE METER 124 mg/dL 70-110 H TESTED AT [facility] 6720 (BEAKER) (test code = [facility] [place] 1538) [address] RAD, CHEST, 1 VIEW, NON [id number] 08:19:00Reason for exam:->Post opShould this be performed [...] Lisa Verified Date/Time: 01/03/2019 08:19:51 Reading Location: [address] Neuro Reading Room [id number] 03:31:00 Test Item Value Reference Range Interpretation Comments PARTIAL THROMBOPLASTIN TIME 64.2 seconds 22.5-36.0 H (BEAKER) (test code = 760) BASIC METABOLIC [id number] 03:21:00 Test Item Value Reference Range Interpretation [...] H (BEAKER) (test code = 413) POCT-GLUCOSE [id number] 22:54:00 Test Item Value Reference Range Interpretation Comments POC-GLUCOSE METER 206 mg/dL 70-110 H TESTED AT [facility] 67[address] ([facility]) (test code = [facility] 1538) [address] [id number] 19:36:00 Test Item Value Reference Range Interpretation Comments PARTIAL THROMBOPLASTIN TIME 79.3 seconds 22.5-36.0 H (BEAKER) (test code = 760) POCT-GLUCOSE [id number] 17:59:00 Test Item Value Reference Range Interpretation Comments POC-GLUCOSE METER 186 mg/dL 70-110 H [facility] 6720 [facility] (test code = [facility] [place] 1538) [address] POCT-GLUCOSE [id number] 13:54:00 Test Item Value Reference Range Interpretation Comments POC-GLUCOSE METER 139 mg/dL 70-110 H TESTED AT [facility] 6720 [facility] (test code = [facility] [place] 1538) [address] POCT-GLUCOSE [id number] 13:05:00 Test Item Value Reference Range Interpretation Comments POC-GLUCOSE METER 163 mg/dL 70-110 H TESTED AT [facility] 6720 [facility] (test code = [facility] [place] 1538) [address] [id number] 12:49:00 Test Item Value Reference Range Interpretation Comments PARTIAL THROMBOPLASTIN TIME 64.9 seconds 22.5-36.0 H (AKER) (test code = 760) OCCULT BLOOD, [id number] 12:31:00 Test Item Value Reference Range Interpretation Comments FECAL OCCULT BLOOD ([facility]) (test Negative Negative code = 618) RAD, CHEST, 1 VIEW, NON [id number] 10:37:00Reason for exam:->Post opShould this be performed [...] IMPRESSION: No significant change. Signed: Sarah Beth [facility] Verified Date/Time: 01/02/2019 10:37:35 Reading Loc ation: ARTURO Michelle Brendan Radiology Reading Room POCT-GLUCOSE [id number] 08:07:00 Test Item Value Reference Range Interpretation Comments POC-GLUCOSE METER 107 mg/dL 70-110 TESTED AT [facility] 6720 (BEAKER) (test code = [facility] 1538) [address] [id number] 04:48:00 Test Item Value Reference Range Interpretation Comments PARTIAL THROMBOPLASTIN TIME 106.0 seconds 22.5-36.0 H (BEAKER) (test code = 760) While on warfarin.BASIC METABOLIC [id number] 04:48:00 Test Item Value Reference Range Interpretation [...] NOT APPLICABLE FOR DIALYSIS PATIEN TS. PROTHROMBIN TIME/[id number] 04:39:00 Test Item Value Reference Range Interpretation [...] 0-0 (BEAKER) (test code = 413) POCT-GLUCOSE [id number] 22:17:00 Test Item Value Reference Range Interpretation Comments POC-GLUCOSE METER 117 mg/dL 70-110 H TESTED AT [facility] 6720 (BEAKER) (test code = [facility] 1538) [address] RAD, CHEST, 1 VIEW, NON [id number] 19:40:00Reason for exam:->Post opShould this be performed [...] are clear. IMPRESSION: No interval change. Signed: Merle, Edenilson MDReport Verified Date/Time: 01/01/2019 19:40:01 Reading Location: [facility] C013W Consult Reading Room POCT-GLUCOSE [id number] 18:22:00 Test Item Value Reference Range Interpretation Comments POC-GLUCOSE METER 159 mg/dL 70-110 H TESTED AT [place] [address] ([facility]) (test code = [facility] 1538) [address] POCT-GLUCOSE [id number] 14:12:00 Test Item Value Reference Range Interpretation Comments POC-GLUCOSE METER 135 mg/dL 70-110 H TESTED AT [place] [address] ([facility]) (test code = [facility] 1538) [address] HEPATITIS B SURFACE [id number] 11:52:00 Test Item Value Reference Range Interpretation Comments HEPATITIS B SURFACE ANTIGEN (2) Nonreactive Nonreactive (BEAKER) (test code = 2585) POCT-GLUCOSE [id number] 08:40:00 Test Item Value Reference Range Interpretation Comments POC-GLUCOSE METER 85 mg/dL 70-110 [facility] [place] [address] [facility] (test code = [facility] [address] 1538) BASIC METABOLIC [id number] 04:17:00 Test Item Value Reference Range Interpretation [...] S NOT APPLICABLE FOR DIALYSIS PATIEN TS. [id number] 03:40:00 Test Item Value Reference Range Interpretation Comments PARTIAL THROMBOPLASTIN TIME 84.1 seconds 22.5-36.0 H (BEAKER) (test code = 760) While on warfarin.PROTHROMBIN TIME/[id number] 03:39:00 Test Item Value Reference Range Interpretation [...] RED BLOOD CELLS 0 /100 WBC 0-0 ([facility]) (test code = 413) POCT-GLUCOSE [id number] 22:08:00 Test Item Value Reference Range Interpretation Comments POC-GLUCOSE METER 194 mg/dL 70-110 H TESTED AT [facility] 67 ([facility]) (test code = [facility] 1538) [address] POCT-GLUCOSE [id number] 22:03:00 Test Item Value Reference Range Interpretation Comments POC-GLUCOSE METER 203 mg/dL 70-110 H TESTED AT [place] [address] ([facility]) (test code = [facility] 1538) [address] POCT-GLUCOSE [id number] 21:42:00 Test Item Value Reference Range Interpretation Comments POC-GLUCOSE METER 42 mg/dL 70-110 L TESTED AT [place] [address] ([facility]) (test code = [facility] [address] 1538) [id number] 21:35:00 Test Item Value Reference Range Interpretation Comments PARTIAL THROMBOPLASTIN TIME 80.4 seconds 22.5-36.0 H ([facility]) (test code = 760) POCT-GLUCOSE [id number] 18:03:00 Test Item Value Reference Range Interpretation Comments POC-GLUCOSE METER 144 mg/dL 70-110 H TESTED AT [place] [address] ([facility]) (test code = [facility] Humberto [facility] 1538) [address] TISSUE [id number] 16:33:00Surgical Pathology Report Case: [id number] Authorizing Provider: Enmanuel Sharma Collected: 12/26/2018 1537 MD [place] OrderingLocation: [address] Received: 12/29/2018 0814 Service Pathologist: Brigida Parks MD Specimens: A) - Bio psy, Gastric, random gastric bx; gastritis B) - Biopsy, Mid-esophagus, mid esophagus ulcer bx; evaluate for HSV, CMV; hx of HIV This addendum is issued toreport the result of GMS stain on specimen B: - NEGATIVEThe interpretation of this case included theuse of immunohistochemistry or special stains. GMSImmunohistochemistry technical testing was performed at [facility], Pathology Laboratory where it was developed [...] toperform high complexity clinical laboratory testing.CPT CODE: [id number] electronically signed by Brigida Parks MD on 12/31/2018 at 4:33 PMTHIS [...] NO INTESTINAL METAPLASIA,DYSPLASIA OR MALIGNANCY NOTED GASTROESOPHAGEAL MID- ESOPHAGUS, ENDOSCOPIC BIOPSY: - ACTIVE ESOPHAGITIS WITH ULCERATION AND GRANULATION TISSUE - GASTRIC MUCOSA WITH POSSIBLE EROSION AND REACTIVE CHANGES - NO INTESTINAL METAPLASIA SEEN - NO VIRAL INCLUSIONS ARE IDENTIFIED - NO DYSPLASIA OR MALIGNANCY PRESENT - IMMUNOHISTOCHEMICAL STUDIES FOR CMV, HSV I AND II ARE NEGATIVE Signing Pathologist Direct Phone Line: [phone] signed by Brigida Parks MD on 12/30/2018 at 6:43 PMPreliminary result electronically signed by Brigida Parks MD on 12/29/2018 at 4:54 [id number] X 2; 11702; 35562; 66102 X 2Upper endoscopy, biopsyPreoperative and postoperative diagnosis: [...] AND CMVImmunohistochemistry technical testing was performed [facility]ology [facility] where it was developed [...] qualified toperform high complexity clinical laboratory testing.POCT-GLUCOSE [id number] 13:57:00 Test Item Value Reference Range Interpretation Comments POC-GLUCOSE METER 178 mg/dL 70-110 H TESTED AT [place] [address] ([facility]) (test code = [place] 1538) [address] [id number] 12:54:00 Test Item Value Reference Range Interpretation Comments PARTIAL THROMBOPLASTIN TIME 69.4 seconds 22.5-36.0 H ([facility]) (test code = 760) RAD, CHEST, 1 VIEW, NON [id number] 09:26:00Reason for exam:->Post opShould this be performed [...] MDReport Verified Date/Time: 12/31/2018 09:26:31 Reading Location: [facility] Radiology Reading Room POCT-GLUCOSE [id number] 09:01:00 Test Item Value Reference Range Interpretation Comments POC-GLUCOSE METER 162 mg/dL 70-110 H TESTED AT [place] [address] (BEAKER) (test code = [place] 1538) [address] BASIC METABOLIC [id number] 06:50:00 Test Item Value Reference Range Interpretation [...] NOT APPLICABLE FOR DIALYSIS PATIEN TS. PROTHROMBIN TIME/[id number] 06:38:00 Test Item Value Reference Range Interpretation Comments PROTIME (BEAKER) (test code = 19.1 seconds 11.7-14.7 H 759) INR (BEAKER) (test code = 370) 1.7 <=5.9 RECOMMENDED COUMADIN/WARFARIN INR THERAPY RANGESSTANDARD DOSE: 2.0 - 3.0 Includes: PROPHYLAXIS forvenous thrombosis, systemic embolization; TREATMENT for venous thrombosis and/or pulmonary embolus.HIGH RISK: Target INR is 2.5-3.5 for patients with mechanical heart valves.While on warfarin.[id number] 06:37:00 Test Item Value Reference Range Interpretation [...] 0-0 (BEAKER) (test code = 413) POCT-GLUCOSE [id number] 00:45:00 Test Item Value Reference Range Interpretation Comments POC-GLUCOSE METER 124 mg/dL 70-110 H TESTED AT [place] [address] ([facility]) (test code = [place] 1538) [address] [id number] 19:14:00 Test Item Value Reference Range Interpretation Comments PARTIAL THROMBOPLASTIN TIME 57.8 seconds 22.5-36.0 H ([facility]) (test code = 760) POCT-GLUCOSE [id number] 17:53:00 Test Item Value Reference Range Interpretation Comments POC-GLUCOSE METER 133 mg/dL 70-110 H TESTED AT [place] [address] ([facility]) (test code = [place] 1538) [address] POCT-GLUCOSE [id number] 13:19:00 Test Item Value Reference Range Interpretation Comments POC-GLUCOSE METER 147 mg/dL 70-110 H TESTED AT [place] [address] ([facility]) (test code = [place] 1538) [address] [id number] 12:43:00 Test Item Value Reference Range Interpretation Comments PARTIAL THROMBOPLASTIN TIME 57.0 seconds 22.5-36.0 H (BEAKER) (test code = 760) [id number] 10:17:00 Test Item Value Reference Range Interpretation Comments PARTIAL THROMBOPLASTIN TIME 134.5 seconds 22.5-36.0 H (BEAKER) (test code = 760) POCT-GLUCOSE [id number] 07:43:00 Test Item Value Reference Range Interpretation Comments POC-GLUCOSE METER 107 mg/dL 70-110 TESTED AT [facility] 6720 (BEAKER) (test code = [place] 1538) [address] BASIC METABOLIC [id number] 06:46:00 Test Item Value Reference Range Interpretation [...] PATIEN TS. RAD, CHEST, 1 VIEW, NON [id number] 06:25:00Reason for exam:->Post opShould this be performed [...] contours. Stable surgical changes.Additional findings: None. Signed: Rahda Lisa MDReport Verified Date/Time: 12/30/2018 06:25:51 Reading Location: [facility] C013V Neuro Reading Room PROTHROMBIN TIME/[id number] 06:06:00 Test Item Value Reference Range Interpretation [...] RED BLOOD CELLS 0 /100 WBC 0-0 ([facility]) (test code = 413) POCT-GLUCOSE [id number] 22:19:00 Test Item Value Reference Range Interpretation Comments POC-GLUCOSE METER 179 mg/dL 70-110 H TESTED AT [place] [address] ([facility]) (test code = FOSTER Paul [place] 1538) [address] POCT-GLUCOSE [id number] 17:39:00 Test Item Value Reference Range Interpretation Comments POC-GLUCOSE METER 181 mg/dL 70-110 H TESTED AT [place] [address] ([facility]) (test code = [place]OST[place] Paul [place] 1538) [address] POCT-GLUCOSE [id number] 13:14:00 Test Item Value Reference Range Interpretation Comments POC-GLUCOSE METER 102 mg/dL 70-110 TESTED AT [place] [address] ([facility]) (test code = [place] [facility] 1538) [address] RAD, CHEST, 1 VIEW, NON [id number] 08:56:00Reason for exam:->Post opShould this be performed [...] IMPRESSION: No interval change. Signed: Edenilson Bloom [facility]ITAL[facility] Verified Date/Time: 12/29/2018 08:56:32 Reading Location: [facility] Radiology Reading Room Electronically signed by: EDENILSON BLOOM M.D.on 12/29/2018 08:56 AMPOCT-GLUCOSE [id number] 07:53:00 Test Item Value Reference Range Interpretation Comments POC-GLUCOSE METER 135 mg/dL 70-110 H TESTED AT [place] [address] ([facility]) (test code = F[place]ER [place] [facility] 1538) [address] [id number] 06:45:00 Test Item Value Reference Range Interpretation Comments PARTIAL THROMBOPLASTIN TIME 83.5 seconds 22.5-36.0 H (BEAKER) (test code = 760) While on warfarin.PROTHROMBIN TIME/[id number] 06:44:00 Test Item Value Reference Range Interpretation [...] % 40.1-51.0 L 411) MEAN CORPUSCULAR VOLUME ([facility]) 100.0 fL 79.0-92.2 H (test code = 753) MEAN CORPUSCULAR HEMOGLOBIN 32.7 pg 25.7-32.2 H ([facility]) (test code = 751) MEAN CORPUSCULAR HEMOGLOBIN CONC 32.7 GM/DL 32.3-36.5 ([facility]) (test code = 752) RED CELL DISTRIBUTION WIDTH 15.6 % 11.6-14.4 H ([facility]) (test code = 412) PLATELET COUNT ([facility]) (test 131 K/CU MM 150-450 L code = 756) MEAN PLATELET VOLUME ([facility]) 9.1 fL 9.4-12.4 L (test code = 754) NUCLEATED RED BLOOD CELLS 0 /100 WBC 0-0 ([facility]) (test code = 413) [id number] 00:01:00 Test Item Value Reference Range Interpretation Comments PARTIAL THROMBOPLASTIN TIME 78.5 seconds 22.5-36.0 H ([facility]) (test code = 760) POCT-GLUCOSE [id number] 21:26:00 Test Item Value Reference Range Interpretation Comments POC-GLUCOSE METER 139 mg/dL 70-110 H TESTED AT [place] [address] ([facility]) (test code = [place] 1538) [address] POCT-GLUCOSE [id number] 17:58:00 Test Item Value Reference Range Interpretation Comments POC-GLUCOSE METER 146 mg/dL 70-110 H TESTED AT [place] [address] ([facility]) (test code = [place] 1538) [address] [id number] 17:16:00 Test Item Value Reference Range Interpretation Comments PARTIAL THROMBOPLASTIN TIME 34.5 seconds 22.5-36.0 ([facility]) (test code = 760) Prior to initiating heparinPOCT-GLUCOSE [id number] 12:54:00 Test Item Value Reference Range Interpretation Comments POC-GLUCOSE METER 133 mg/dL 70-110 H TESTED AT [place] [address] ([facility]) (test code = [place] 1538) [address] RAD, CHEST, 1 VIEW, NON [id number] 08:06:00Reason for exam:->Post opShould this be performed at the bedside?->YesFINAL REPORT Chest one view. Clinical history: Post op Comparison: 12/27/2018 Discussion: A frontal chest is provided. Cardiomediastinal contours are unchanged. Lines and tubesare in stable position. Unchanged right-sided pleural-parenchymal opacities. Left lung is grossly clear. Vessels do not appear engorged. No pneumothorax. Signed: Dionicio Cheryeport Verified Date/Time: 12/28/2018 08:06:07 Reading Location: [address] Neuro Reading Room BASIC METABOLIC [id number] 06:52:00 Test Item Value Reference Range Interpretation [...] NOT APPLICABLE FOR DIALYSIS PATIEN TS. PROTHROMBIN TIME/[id number] 06:31:00 Test Item Value Reference Range Interpretation [...] 0-0 (BEAKER) (test code = 413) POCT-GLUCOSE [id number] 21:41:00 Test Item Value Reference Range Interpretation Comments POC-GLUCOSE METER 163 mg/dL 70-110 H TESTED AT [facility] [address] ([facility]) (test code = [place] 1538) [address] POCT-GLUCOSE [id number] 17:23:00 Test Item Value Reference Range Interpretation Comments POC-GLUCOSE METER 119 mg/dL 70-110 H TESTED AT [facility] 67[address] ([facility]) (test code = [facility] Humberto [place] 1538) [address] RAD, CHEST, 1 VIEW, NON [id number] 14:49:00Reason for exam:->Post opShould this be performed [...] MDReport Verified Date/Time: 12/27/2018 14:49:48 Reading Location: [facility] B1 C013X Ortho Consult Reading Room ANG, NON-TUNNELED CATH >5 Y.O. [id number] 14:17:00Reason for exam:->Central line placement, poor access, [...] guide wire was advanced centrally. A 7 Albanian 20 cm triple lumen catheter was advanced [...] catheter terminating in the right atrium.Signed: Bonny Sykeseport Verified Date/Time: 12/27/2018 14:17:02 Reading Location: [facility] P048 Angio Body Reading Room [id number] 13:44:00 Test Item Value Reference Range Interpretation Comments PARTIAL THROMBOPLASTIN TIME 44.3 seconds 22.5-36.0 H (BEAKER) (test code = 760) Prior to initiating heparinPOCT-GLUCOSE [id number] 13:27:00 Test Item Value Reference Range Interpretation Comments POC-GLUCOSE METER 127 mg/dL 70-110 H TESTED AT [place] [address] ([facility]) (test code = [facility] 1538) [address] POCT-GLUCOSE [id number] 08:58:00 Test Item Value Reference Range Interpretation Comments POC-GLUCOSE METER 79 mg/dL 70-110 TESTED AT [place] [address] ([facility]) (test code = [facility] [address] 1538) BASIC METABOLIC [id number] 07:09:00 Test Item Value Reference Range Interpretation [...] NOT APPLICABLE FOR DIALYSIS PATIEN TS. PROTHROMBIN TIME/[id number] 06:52:00 Test Item Value Reference Range Interpretation [...] WBC 0-0 (test code = 413) POCT-GLUCOSE [id number] 23:54:00 Test Item Value Reference Range Interpretation Comments POC-GLUCOSE METER 73 mg/dL 70-110 TESTED AT [facility] 6720 (BEAKER) (test code = [place] [address] 1538) POCT-GLUCOSE [id number] 16:02:00 Test Item Value Reference Range Interpretation Comments POC-GLUCOSE METER 108 mg/dL 70-110 TESTED AT [facility] 6720 [facility] (test code = [place]ER Paul [facility] 1538) [address] POCT-GLUCOSE [id number] 15:24:00 Test Item Value Reference Range Interpretation Comments POC-GLUCOSE METER 74 mg/dL 70-110 TESTED AT [facility] [address] ([facility]) (test code = FOSTER [place] [facility] [address] 1538) POCT-GLUCOSE [id number] 10:29:00 Test Item Value Reference Range Interpretation Comments POC-GLUCOSE METER 88 mg/dL 70-110 TESTED AT [facility] 67[address] ([facility]) (test code = F[place] [facility] [address] 1538) RAD, CHEST, 1 VIEW, NON [id number] 07:33:00Reason for exam:->Post opShould this be performed [...] No significant change. Signed: Sarah Beth Mejia MDRepst. louis behavioral medicine institute Verified Date/Time: 12/26/2018 07:33:38 Reading Location: [facility] Radiology Reading Room BASIC METABOLIC [id number] 06:42:00 Test Item Value Reference Range Interpretation [...] 0-0 H (test code = 413) PROTHROMBIN TIME/[id number] 05:44:00 Test Item Value Reference Range Interpretation Comments PROTIME (BEAKER) (test code = 24.4 seconds 11.7-14.7 H 759) INR (BEAKER) (test code = 370) 2.2 <=5.9 RECOMMENDED COUMADIN/WARFARIN INR THERAPY RANGESSTANDARD DOSE: 2.0 - 3.0 Includes: PROPHYLAXIS forvenous thrombosis, systemic embolization; TREATMENT for venous thrombosis and/or pulmonary embolus.HIGH RISK: Target INR is 2.5-3.5 for patients with mechanical heart valves.POCT-GLUCOSE [id number] 00:06:00 Test Item Value Reference Range Interpretation Comments POC-GLUCOSE METER 88 mg/dL 70-110 TESTED AT [facility] 67 ([facility]) (test code = [facility] [address] 1538) POCT-GLUCOSE [id number] 19:06:00 Test Item Value Reference Range Interpretation Comments POC-GLUCOSE METER 121 mg/dL 70-110 H TESTED AT [place] [address] ([facility]) (test code = [facility] 1538) [address] PROTHROMBIN TIME/[id number] 16:10:00 Test Item Value Reference Range Interpretation Comments PROTIME (BEAKER) (test code = 30.1 seconds 11.7-14.7 H 759) INR (BEAKER) (test code = 370) 2.9 <=5.9 RECOMMENDED COUMADIN/WARFARIN INR THERAPY RANGESSTANDARD DOSE: 2.0 - 3.0 Includes: PROPHYLAXIS forvenous thrombosis, systemic embolization; TREATMENT for venous thrombosis and/or pulmonary embolus.HIGH RISK: Target INR is 2.5-3.5 for patients with mechanical heart valves.BASIC METABOLIC [id number] 16:10:00 Test Item Value Reference Range Interpretation [...] S NOT APPLICABLE FOR DIALYSIS PATIEN TS. [id number] 16:09:00 Test Item Value Reference Range Interpretation [...] 0-0 H (test code = 413) POCT-GLUCOSE [id number] 08:03:00 Test Item Value Reference Range Interpretation Comments POC-GLUCOSE METER 89 mg/dL 70-110 TESTED AT [facility] 6720 (BEAKER) (test code = [place] [address] 1538) RAD, CHEST, 1 VIEW, NON [id number] 07:46:00Reason for exam:->Post opShould this be performed at the bedside?->YesFINAL REPORT Chest one view. Clinical history: Post op Comparison: 12/24/2018 Discussion: A frontal chest is provided. Cardiomediastinal contours are unchanged. Stable appearance of pleural-parenchymal opacity at the right mid to lower lung. There is a tiny right apical pneumothorax, unchanged. Probable trace left effusion. Signed: Dionicio Chery Verified Date/Time: 07:46:01 Reading Location: [facility] Radiology Reading Room RAD, ABDOMEN/KUB, 1 VIEW [id number] 07:25:00Reason for exam:->abdominal distentionShould this be performed [...] Chery Verified Date/Time: 12/25/2018 07:25:40 Reading Location: [facility] Radiology Reading Room POCT-GLUCOSE [id number] 22:06:00 Test Item Value Reference Range Interpretation Comments POC-GLUCOSE METER 102 mg/dL 70-110 TESTED AT [place] [address] ([facility]) (test code = FOSTER [place] [facility] 1538) [address] POCT-GLUCOSE [id number] 18:44:00 Test Item Value Reference Range Interpretation Comments POC-GLUCOSE METER 100 mg/dL 70-110 TESTED AT [place] [address] ([facility]) (test code = FOSTER Paul [facility] 1538) [address] POCT-GLUCOSE [id number] 14:54:00 Test Item Value Reference Range Interpretation Comments POC-GLUCOSE METER 103 mg/dL 70-110 TESTED AT [facility] 6720 (BEAKER) (test code = [place] 1538) [address] [id number] 08:07:00 Test Item Value Reference Range Interpretation Comments FERRITIN (BEAKER) (test code = 2044 ng/mL 5-275 H 361) POCT-GLUCOSE [id number] 07:57:00 Test Item Value Reference Range Interpretation Comments POC-GLUCOSE METER 76 mg/dL 70-110 TESTED AT [place] [address] ([facility]) (test code = [place] [address] 1538) RAD, CHEST, 1 VIEW, NON [id number] 07:57:00Reason for exam:->Post opShould this be performed [...] MDReport Verified Date/Time: 12/24/2018 07:57:06 Reading Location: [facility] Radiology Reading Room CBC (HEMOGRAM ONLY) 2018-12-24 [...] H (test code = 413) BASIC METABOLIC [id number] 07:14:00 Test Item Value Reference Range Interpretation [...] S NOT APPLICABLE FOR DIALYSIS PATIEN TS. [id number] 07:08:00 Test Item Value Reference Range Interpretation [...] % 20-55 (test code = 2590) PROTHROMBIN TIME/[id number] 07:05:00 Test Item Value Reference Range Interpretation Comments PROTIME ([facility]) (test code = 38.7 seconds 11.7-14.7 H 759) INR ([facility]) (test code = 370) 3.9 <=5.9 RECOMMENDED COUMADIN/WARFARIN INR THERAPY RANGESSTANDARD DOSE: 2.0 - 3.0 Includes: PROPHYLAXIS forvenous thrombosis, systemic embolization; TREATMENT for venous thrombosis and/or pulmonary embolus.HIGH RISK: Target INR is 2.5-3.5 for patients with mechanical heart valves.POCT-GLUCOSE [id number] 00:26:00 Test Item Value Reference Range Interpretation Comments POC-GLUCOSE METER 86 mg/dL 70-110 TESTED AT [place] [address] ([facility]) (test code = FOSTER Paul [facility] [address] 1538) POCT-GLUCOSE [id number] 00:26:00 Test Item Value Reference Range Interpretation Comments POC-GLUCOSE METER 137 mg/dL 70-110 H TESTED AT [place] [address] ([facility]) (test code = FOSTER Paul [facility] 1538) [address] POCT-GLUCOSE [id number] 16:07:00 Test Item Value Reference Range Interpretation Comments POC-GLUCOSE METER 72 mg/dL 70-110 TESTED AT [place] [address] ([facility]) (test code = FOSTER [place] [facility] [address] 1538) POCT-GLUCOSE [id number] 16:07:00 Test Item Value Reference Range Interpretation Comments POC-GLUCOSE METER 61 mg/dL 70-110 L TESTED AT [place] [address] ([facility]) (test code = FOSTER [place] [facility] [address] 1538) POCT-GLUCOSE [id number] 11:27:00 Test Item Value Reference Range Interpretation Comments POC-GLUCOSE METER 82 mg/dL 70-110 TESTED AT [place] [address] ([facility]) (test code = FOSTER Paul [facility] [address] 1538) POCT-GLUCOSE [id number] 10:32:00 Test Item Value Reference Range Interpretation Comments POC-GLUCOSE METER 43 mg/dL 70-110 L TESTED AT [place] [address] ([facility]) (test code = FOSTER Paul [facility] [address] 1538) BASIC METABOLIC [id number] 07:28:00 Test Item Value Reference Range Interpretation [...] S NOT APPLICABLE FOR DIALYSIS PATIEN TS. [id number] 07:24:00 Test Item Value Reference Range Interpretation Comments MAGNESIUM (BEAKER) 2.0 mg/dL 1.6-2.6 Specimen slightly (test code = 627) hemolyzed [id number] 07:24:00 Test Item Value Reference Range Interpretation Comments PHOSPHORUS (BEAKER) 4.4 mg/dL 2.3-4.7 Specimen slightly (test code = 604) hemolyzed PROTHROMBIN [id number] 07:20:00 Test Item Value Reference Range Interpretation [...] = 413) RAD, CHEST, 1 VIEW, NON [id number] 04:22:00Reason for exam:->Post opShould this be performed [...] MDReport Verified Date/Time: 12/23/2018 04:22:43 Reading Location: [address] Body Reading Room POCT-GLUCOSE [id number] 03:01:00 Test Item Value Reference Range Interpretation Comments POC-GLUCOSE METER 85 mg/dL 70-110 TESTED AT [facility] 6720 (BEAKER) (test code = [place] [address] 1538) BASIC METABOLIC [id number] 18:52:00 Test Item Value Reference Range Interpretation [...] H (BEAKER) (test code = 413) ANAEROBIC [id number] 17:00:00 Test Item Value Reference Range Interpretation Comments CULTURE (BEAKER) (test No anaerobes isolated code = 1095) RAD, CHEST, 1 VIEW, NON [id number] 07:44:00Reason for exam:->Post opShould this be performed [...] Arteaga Verified Date/Time: 12/22/2018 07:44:12 Reading Location: [facility] Radiology Reading Room PROTHROMBIN TIME/[id number] 04:31:00 Test Item Value Reference Range Interpretation [...] METER 141 mg/dL 70-110 H TESTED AT [facility] 67[address] ([facility]) (test code = [place] 1538) [address] POCT-GLUCOSE [id number] 13:22:00 Test Item Value Reference Range Interpretation Comments POC-GLUCOSE METER 100 mg/dL 70-110 TESTED AT [facility] [address] ([facility]) (test code = FOSTER Paul [place] 1538) [address] RAD, CHEST, 1 VIEW, NON [id number] 08:01:00Reason for exam:->Post opShould this be performed [...] Lisa Verified Date/Time: 12/21/2018 08:01:46 Reading Location: [address] Neuro Reading Room PROTHROMBIN TIME/[id number] 05:30:00 Test Item Value Reference Range Interpretation [...] POC-GLUCOSE METER 98 mg/dL 70-110 TESTED AT [place] [address] (BEAKER) (test code = FOSTER Paul [facility] [address] 1538) POCT-GLUCOSE [id number] 17:40:00 Test Item Value Reference Range Interpretation Comments POC-GLUCOSE METER 91 mg/dL 70-110 TESTED AT [place] [address] (BEAKER) (test code = [facility] Humberto [facility] [address] 1538) POCT-GLUCOSE [id number] 13:13:00 Test Item Value Reference Range Interpretation Comments POC-GLUCOSE METER 73 mg/dL 70-110 TESTED AT [place] [address] ([facility]) (test code = [facility] Humberto [facility] [address] 1538) SURGICALLY OBTAINED CULTURE + GRAM [id number] 08:41:00 Test Item Value Reference Range Interpretation Comments CULTURE (BEAKER) (test No growth code = 1095) GRAM STAIN RESULT No White blood cells (BEAKER) (test code = seen 1123) GRAM STAIN RESULT No organisms seen (BEAKER) (test code = 49681) RAD, CHEST, 1 VIEW, NON [id number] 08:20:00Reason for exam:->Post opShould this be performed [...] Lisa Verified Date/Time: 12/20/2018 08:20:58 Reading Location: [facility] Neuro Reading Room BASIC METABOLIC [id number] 08:09:00 Test Item Value Reference Range Interpretation [...] S NOT APPLICABLE FOR DIALYSIS PATIRUBÉN TS. [id number] 08:00:00 Test Item Value Reference Range Interpretation Comments PHOSPHORUS (BEAKER) (test code = 4.5 mg/dL 2.3-4.7 604) CALCIUM, [id number] 07:20:00 Test Item Value Reference Range Interpretation Comments CALCIUM IONIZED (BEAKER) (test 1.04 mmol/L 1.12-1.27 L code = 698) PH, BLOOD (BEAKER) (test code = 7.35 1810) PROTHROMBIN TIME/[id number] 07:04:00 Test Item Value Reference Range Interpretation [...] 0-0 (BEAKER) (test code = 413) POCT-GLUCOSE [id number] 22:00:00 Test Item Value Reference Range Interpretation Comments POC-GLUCOSE METER 188 mg/dL 70-110 H TESTED AT [facility] 6720 (BEAKER) (test code = [place] 1538) [address] TISSUE [id number] 18:15:00Surgical Pathology Report Case: [id number] Authorizing Provider: Moiz Vargas, Collected: 12/17/2018 0950 Ordering Location: [facility] Received: 12/17/2018 1129 PERIOPERATIVE SERVICES Pathologist: Kwan Perla MD Specimen: Pleural, Right, RIGHT PLEURAL PEEL PLEURA, RIGHT, DECORTICATION- MILD CHRONIC INFLAMMATION AND GRANULATION TISSUE- ORGANIZING BLOOD CLOTS- NO MALIGNANT CELLS IDENTIFIED Signing Pathologist Direct Phone Line: [phone] signed by Kwan Perla MD on 12/19/2018 at 6:15 PMCorrelation with microbiology cultures is recommended.22120Taalmvg effusion and other conditions classified elsewhereRight pleural peelThe specimen is received in a formalin-filled container labeled with the patient's information and labeled "right pleural peel" and consists of multiple fragments of porter-red, dusky, firm tissue measuring 6 x 5 x 0.4 cm in aggregate. [employer] Records Management Officer sections are submitted in A1-A3. CG/ew Performed.POCT-GLUCOSE [id number] 17:11:00 Test Item Value Reference Range Interpretation Comments POC-GLUCOSE METER 126 mg/dL 70-110 H TESTED AT [place] [address] ([facility]) (test code = [facility] 1538) [address] POCT-GLUCOSE [id number] 12:57:00 Test Item Value Reference Range Interpretation Comments POC-GLUCOSE METER 143 mg/dL 70-110 H TESTED AT [place] [address] ([facility]) (test code = [facility] 1538) [address] POCT-GLUCOSE [id number] 07:27:00 Test Item Value Reference Range Interpretation Comments POC-GLUCOSE METER 141 mg/dL 70-110 H TESTED AT [place] [address] ([facility]) (test code = [facility] 1538) [address] CALCIUM, [id number] 06:29:00 Test Item Value Reference Range Interpretation Comments CALCIUM IONIZED ([facility]) (test 1.00 mmol/L 1.12-1.27 L code = 698) PH, BLOOD ([facility]) (test code = 7.45 1810) RAD, CHEST, 1 VIEW, NON [id number] 04:54:00Reason for exam:->Post opShould this be performed [...] [place] Verified Date/Time: 2018 04:54:49 Reading Location: [facility] B1 C013Y CT Body Reading Room BASIC METABOLIC [id number] 04:19:00 Test Item Value Reference Range Interpretation [...] S NOT APPLICABLE FOR DIALYSIS PATIEN TS. [id number] 04:16:00 Test Item Value Reference Range Interpretation Comments PHOSPHORUS (BEAKER) (test code = 3.4 mg/dL 2.3-4.7 604) PROTHROMBIN [id number] 04:06:00 Test Item Value Reference Range Interpretation [...] 0-0 (BEAKER) (test code = 413) POCT-GLUCOSE [id number] 22:11:00 Test Item Value Reference Range Interpretation Comments POC-GLUCOSE METER 149 mg/dL 70-110 H TESTED AT [place] [address] ([facility]) (test code = [facility] 1538) [address] POCT-GLUCOSE [id number] 17:52:00 Test Item Value Reference Range Interpretation Comments POC-GLUCOSE METER 122 mg/dL 70-110 H TESTED AT [place] [address] ([facility]) (test code = [facility] 1538) [address] POCT-GLUCOSE [id number] 14:26:00 Test Item Value Reference Range Interpretation Comments POC-GLUCOSE METER 98 mg/dL 70-110 TESTED AT [place] [address] ([facility]) (test code = [facility] [address] 1538) HEMOGLOBIN AND [id number] 12:47:00 Test Item Value Reference Range Interpretation Comments HEMOGLOBIN (BEAKER) (test code = 9.2 GM/DL 13.7-17.5 L 410) HEMATOCRIT (BEAKER) (test code = 28.3 % 40.1-51.0 L 411) POCT-GLUCOSE [id number] 09:38:00 Test Item Value Reference Range Interpretation Comments POC-GLUCOSE METER 73 mg/dL 70-110 TESTED AT [facility] 6720 (BEAKER) (test code = [place] [address] 1538) PROTEIN ELECTROPHORESIS, [id number] 09:21:00 Test Item Value Reference Range Interpretation [...] of chronic inflammation. No monoclonal bands detected. [id number] Amanda De Jesus MD (BEAKER) (test code = (electronic signature) 2616) PROTEIN TOTAL SERUM, 7.5 gm/dL 6.0-8.3 SPEP (BEAKER) (test code = 2660) RAD, CHEST, 1 VIEW, NON [id number] 06:47:00Reason for exam:->Post opShould this be performed [...] MDReport Verified Date/Time: 12/18/2018 06:47:21 Reading Location: [facility] B1 C013Y CT Body Reading Room [id number] 06:20:00 Test Item Value Reference Range Interpretation Comments MAGNESIUM (BEAKER) (test code = 2.2 mg/dL 1.6-2.6 627) CALCIUM, [id number] 06:00:00 Test Item Value Reference Range Interpretation Comments CALCIUM IONIZED (BEAKER) (test 1.09 mmol/L 1.12-1.27 L code = 698) PH, BLOOD (BEAKER) (test code = 7.34 1810) BASIC METABOLIC [id number] 05:07:00 Test Item Value Reference Range Interpretation [...] S NOT APPLICABLE FOR DIALYSIS PATIEN TS. [id number] 04:54:00 Test Item Value Reference Range Interpretation Comments PHOSPHORUS (BEAKER) (test code = 6.3 mg/dL 2.3-4.7 H 604) HEPATIC FUNCTION [id number] 04:54:00 Test Item Value Reference Range Interpretation [...] (test code = 23 U/L 6-55 347) [id number] 04:51:00 Test Item Value Reference Range Interpretation Comments PARTIAL THROMBOPLASTIN TIME 38.6 seconds 22.5-36.0 H (BEAKER) (test code = 760) PROTHROMBIN [id number] 04:50:00 Test Item Value Reference Range Interpretation Comments PROTIME (BEAKER) (test code = 16.0 seconds 11.7-14.7 H 759) INR (BEAKER) (test code = 370) 1.3 <=5.9 RECOMMENDED COUMADIN/WARFARIN INR THERAPY RANGESSTANDARD DOSE: 2.0 - 3.0 Includes: PROPHYLAXIS forvenous thrombosis, systemic embolization; TREATMENT for venous thrombosis and/or pulmonary embolus.HIGH RISK: Target INR is 2.5-3.5 for patients with mechanical heart valves.[id number] 04:50:00 Test Item Value Reference Range Interpretation Comments FIBRINOGEN LEVEL (BEAKER) (test 494 mg/dl 225-434 H code = 658) PLATELET [id number] 04:38:00 Test Item Value Reference Range Interpretation [...] WBC 0-0 (BEAKER) (test code = 413) [id number] 18:48:00 Test Item Value Reference Range Interpretation Comments MAGNESIUM (BEAKER) (test code = 2.4 mg/dL 1.6-2.6 627) POCT-GLUCOSE [id number] 18:42:00 Test Item Value Reference Range Interpretation Comments POC-GLUCOSE METER 121 mg/dL 70-110 H TESTED AT [facility] 6720 (BEAKER) (test code = [place] 1538) [address] HEMOGLOBIN AND [id number] 18:37:00 Test Item Value Reference Range Interpretation Comments HEMOGLOBIN (BEAKER) (test code = 10.0 GM/DL 13.7-17.5 L 410) HEMATOCRIT (BEAKER) (test code = 31.3 % 40.1-51.0 L 411) RAD, CHEST, 1 VIEW, NON [id number] 13:28:00Reason for exam:->post opShould this be performed [...] MDReport Verified Date/Time: 12/17/2018 13:28:23 Reading Location: [facility] [id number] 13:03:00 Test Item Value Reference Range Interpretation [...] S NOT APPLICABLE FOR DIALYSIS PATIEN TS. [id number] 12:53:00 Test Item Value Reference Range Interpretation Comments PHOSPHORUS (BEAKER) (test code = 4.3 mg/dL 2.3-4.7 604) [id number] 12:53:00 Test Item Value Reference Range Interpretation Comments MAGNESIUM (BEAKER) (test code = 1.5 mg/dL 1.6-2.6 L 627) LACTIC ACID, [id number] 12:50:00 Test Item Value Reference Range Interpretation Comments LACTATE BLOOD ARTERIAL (2) 0.9 mmol/L 0.5-2.2 (BEAKER) (test code = 2874) CBC W/PLT COUNT & AUTO [id number] 12:47:00 Test Item Value Reference Range Interpretation [...] PERCENT (BEAKER) (test code = 2801) CALCIUM, [id number] 12:26:00 Test Item Value Reference Range Interpretation Comments CALCIUM IONIZED (BEAKER) (test 1.07 mmol/L 1.12-1.27 L code = 698) PH, BLOOD (BEAKER) (test code = 7.38 1810) BLOOD GAS, [id number] 12:26:00 Test Item Value Reference Range Interpretation [...] (test code = 1819) 40.0 % CALCIUM, [id number] 10:25:00 Test Item Value Reference Range Interpretation Comments CALCIUM IONIZED (BEAKER) (test 1.09 mmol/L 1.12-1.27 L code = 698) PH, BLOOD (BEAKER) (test code = 7.45 1810) BLOOD GAS, [id number] 10:22:00 Test Item Value Reference Range Interpretation [...] code = 1819) 96.0 % SODIUM NA-STAT [id number] 10:22:00 Test Item Value Reference Range Interpretation Comments SODIUM (BEAKER) (test code = 381) 133 meq/L 135-148 L GLUCOSE-STAT [id number] 10:22:00 Test Item Value Reference Range Interpretation Comments GLUCOSE RANDOM (BEAKER) (test code 116 mg/dL 70-110 H = 652) HGB/HCT (H&H) - STAT [id number] 10:22:00 Test Item Value Reference Range Interpretation Comments HEMOGLOBIN (BEAKER) (test code = 8.9 g/dL 13.0-16.8 L 410) HEMATOCRIT (BEAKER) (test code = 26.0 % 40.0-50.0 L 411) POTASSIUM-STAT [id number] 10:20:00 Test Item Value Reference Range Interpretation Comments POTASSIUM (BEAKER) (test code = 4.0 meq/L 3.6-5.5 379) HEMOGLOBIN [id number] 09:33:00 Test Item Value Reference Range Interpretation Comments HEMOGLOBIN A1C (BEAKER) (test code = 5.9 % 4.3-6.1 368) BLOOD GAS, [id number] 09:27:00 Test Item Value Reference Range Interpretation [...] code = 1819) 100.0 % SODIUM NA-STAT [id number] 09:27:00 Test Item Value Reference Range Interpretation Comments SODIUM (BEAKER) (test code = 381) 133 meq/L 135-148 L HGB/HCT (H&H) - STAT [id number] 09:27:00 Test Item Value Reference Range Interpretation Comments HEMOGLOBIN (BEAKER) (test code = 9.4 g/dL 13.0-16.8 L 410) HEMATOCRIT (BEAKER) (test code = 28.0 % 40.0-50.0 L 411) GLUCOSE-STAT [id number] 09:26:00 Test Item Value Reference Range Interpretation Comments GLUCOSE RANDOM (BEAKER) (test code = 97 mg/dL 70-110 652) POTASSIUM-STAT [id number] 09:26:00 Test Item Value Reference Range Interpretation Comments POTASSIUM (BEAKER) (test code = 3.9 meq/L 3.6-5.5 379) CALCIUM, [id number] 09:26:00 Test Item Value Reference Range Interpretation Comments CALCIUM IONIZED (BEAKER) (test 1.17 mmol/L 1.12-1.27 code = 698) PH, BLOOD (BEAKER) (test code = 7.44 1810) BLOOD GAS, [id number] 08:32:00 Test Item Value Reference Range Interpretation [...] code = 1819) 96.0 % SODIUM NA-STAT [id number] 08:32:00 Test Item Value Reference Range Interpretation Comments SODIUM (BEAKER) (test code = 381) 133 meq/L 135-148 L GLUCOSE-STAT [id number] 08:32:00 Test Item Value Reference Range Interpretation Comments GLUCOSE RANDOM (BEAKER) (test code 113 mg/dL 70-110 H = 652) HGB/HCT (H&H) - STAT [id number] 08:32:00 Test Item Value Reference Range Interpretation Comments HEMOGLOBIN (BEAKER) (test code = 9.9 g/dL 13.0-16.8 L 410) HEMATOCRIT (BEAKER) (test code = 29.0 % 40.0-50.0 L 411) CALCIUM, [id number] 08:31:00 Test Item Value Reference Range Interpretation Comments CALCIUM IONIZED (BEAKER) (test 1.05 mmol/L 1.12-1.27 L code = 698) PH, BLOOD (BEAKER) (test code = 7.49 1810) POTASSIUM-STAT [id number] 08:29:00 Test Item Value Reference Range Interpretation Comments POTASSIUM (BEAKER) (test code = 3.6 meq/L 3.6-5.5 379) POCT-GLUCOSE [id number] 06:20:00 Test Item Value Reference Range Interpretation Comments POC-GLUCOSE METER 99 mg/dL 70-110 TESTED AT [facility] 6720 (BEAKER) (test code = [place] [address] 1538) [id number] 05:05:00 Test Item Value Reference Range Interpretation Comments PARTIAL THROMBOPLASTIN TIME 75.6 seconds 22.5-36.0 H (BEAKER) (test code = 760) LIPID [id number] 05:04:00 Test Item Value Reference Range Interpretation [...] Borderline 130-159 High 160-189 Very High >=190PROTHROMBIN [id number] 05:03:00 Test Item Value Reference Range Interpretation Comments PROTIME (BEAKER) (test code = 15.4 seconds 11.7-14.7 H 759) INR (BEAKER) (test code = 370) 1.2 <=5.9 RECOMMENDED COUMADIN/WARFARIN INR THERAPY RANGESSTANDARD DOSE: 2.0 - 3.0 Includes: PROPHYLAXIS forvenous thrombosis, systemic embolization; TREATMENT for venous thrombosis and/or pulmonary embolus.HIGH RISK: Target INR is 2.5-3.5 for patients with mechanical heart valves.POCT-GLUCOSE [id number] 21:17:00 Test Item Value Reference Range Interpretation Comments POC-GLUCOSE METER 223 mg/dL 70-110 H TESTED AT [facility] 6720 [facility] 1538[facility] [address] COMPREHENSIVE METABOLIC [id number] 18:57:00 Test Item Value Reference Range Interpretation [...] S NOT APPLICABLE FOR DIALYSIS PATIEN TS. [id number] 18:46:00 Test Item Value Reference Range Interpretation Comments MAGNESIUM (BEAKER) (test code = 1.8 mg/dL 1.6-2.6 627) CBC W/PLT COUNT & AUTO [id number] 18:10:00 Test Item Value Reference Range Interpretation [...] PERCENT (BEAKER) (test code = 2801) POCT-GLUCOSE [id number] 17:34:00 Test Item Value Reference Range Interpretation Comments POC-GLUCOSE METER 169 mg/dL 70-110 H TESTED AT [place] [address] ([facility]) (test code = [place] [facility] 1535) [address] HEPARIN [id number] 13:40:00 Test Item Value Reference Range Interpretation Comments HEPARIN ANTIBODY ([facility]) (test code Negative Negative = 646) HEPARIN ANTIBODY OD ([facility]) (test 0.105 <0.400 code = 2659) 4T TOTAL SCORE ([facility]) (test code = 4 2609) Probability of HIT based on scoring system: 6-8 = High probability; 4-5 = intermediate probability;0-3 = low probabilityPOCT-GLUCOSE [id number] 12:51:00 Test Item Value Reference Range Interpretation Comments POC-GLUCOSE METER 66 mg/dL 70-110 L Ayshaied Humberto Yeager MD/TESTED AT ([facility]) (test code = [place] [address] JOSE ANTONIO 1538) [facility] 7703 0 POCT-GLUCOSE [id number] 07:54:00 Test Item Value Reference Range Interpretation Comments POC-GLUCOSE METER 75 mg/dL 70-110 TESTED AT [place] [address] ([facility]) (test code = [place] [facility] [address] 1538) [id number] 04:21:00 Test Item Value Reference Range Interpretation Comments PROTIME ([facility]) (test code = 15.4 seconds 11.7-14.7 H 759) INR ([facility]) (test code = 370) 1.2 <=5.9 PARTIAL THROMBOPLASTIN TIME 74.0 seconds 22.5-36.0 H ([facility]) (test code = 760) RECOMMENDED COUMADIN/WARFARIN INR THERAPY RANGESSTANDARD DOSE: 2.0 - 3.0 Includes: PROPHYLAXIS forvenous thrombosis, systemic embolization; TREATMENT for venous thrombosis and/or pulmonary embolus.HIGH RISK: Target INR is 2.5-3.5 for patients with mechanical heart valves.[id number] 04:20:00 Test Item Value Reference Range Interpretation Comments FIBRINOGEN LEVEL ([facility]) (test 525 mg/dl 225-434 H code = 658) POCT-GLUCOSE [id number] 21:25:00 Test Item Value Reference Range Interpretation Comments POC-GLUCOSE METER 129 mg/dL 70-110 H TESTED AT [place] [address] ([facility]) (test code = [place] [facility] 1538) [address] [id number] 18:23:00 Test Item Value Reference Range Interpretation Comments PARTIAL THROMBOPLASTIN TIME 72.0 seconds 22.5-36.0 H ([facility]) (test code = 760) POCT-GLUCOSE [id number] 16:20:00 Test Item Value Reference Range Interpretation Comments POC-GLUCOSE METER 142 mg/dL 70-110 H TESTED AT [place] [address] ([facility]) (test code = [place] [facility] 1538) [address] POCT-GLUCOSE [id number] 13:05:00 Test Item Value Reference Range Interpretation Comments POC-GLUCOSE METER 86 mg/dL 70-110 TESTED AT [place] [address] ([facility]) (test code = [facility] Humberto [facility] [address] 1538) [id number] 11:19:00 Test Item Value Reference Range Interpretation Comments PARTIAL THROMBOPLASTIN TIME 72.3 seconds 22.5-36.0 H ([facility]) (test code = 760) POCT-GLUCOSE [id number] 07:56:00 Test Item Value Reference Range Interpretation Comments POC-GLUCOSE METER 87 mg/dL 70-110 TESTED AT [facility] 6720 (BEAKER) (test code = [place] [id number] 3028) [id number] 03:13:00 Test Item Value Reference Range Interpretation Comments PARTIAL THROMBOPLASTIN TIME 97.1 seconds 22.5-36.0 H (BEAKER) (test code = 760) PROTHROMBIN [id number] 03:11:00 Test Item Value Reference Range Interpretation [...] WBC 0-0 (test code = 413) POCT-GLUCOSE [id number] 21:26:00 Test Item Value Reference Range Interpretation Comments POC-GLUCOSE METER 121 mg/dL 70-110 H TESTED AT [place] [address] ([facility]) (test code = [place] 1538) [address] [id number] 19:05:00 Test Item Value Reference Range Interpretation Comments PARTIAL THROMBOPLASTIN TIME 64.0 seconds 22.5-36.0 H ([facility]) (test code = 760) POCT-GLUCOSE [id number] 17:24:00 Test Item Value Reference Range Interpretation Comments POC-GLUCOSE METER 131 mg/dL 70-110 H TESTED AT [place] [address] ([facility]) (test code = [place] 1538) [address] [id number] 13:32:00 Test Item Value Reference Range Interpretation Comments PARTIAL THROMBOPLASTIN TIME 81.4 seconds 22.5-36.0 H ([facility]) (test code = 760) POCT-GLUCOSE [id number] 12:32:00 Test Item Value Reference Range Interpretation Comments POC-GLUCOSE METER 102 mg/dL 70-110 TESTED AT [place] [address] ([facility]) (test code = [place] 1538) [address] POCT-GLUCOSE [id number] 07:07:00 Test Item Value Reference Range Interpretation Comments POC-GLUCOSE METER 113 mg/dL 70-110 H TESTED AT [place] [address] ([facility]) (test code = [place] 1538) [address] [id number] 05:47:00 Test Item Value Reference Range Interpretation Comments PARTIAL THROMBOPLASTIN TIME 91.8 seconds 22.5-36.0 H ([facility]) (test code = 760) POCT-GLUCOSE [id number] 21:27:00 Test Item Value Reference Range Interpretation Comments POC-GLUCOSE METER 90 mg/dL 70-110 TESTED AT [place] [address] ([facility]) (test code = [place] [address] 1538) POCT-GLUCOSE [id number] 17:46:00 Test Item Value Reference Range Interpretation Comments POC-GLUCOSE METER 175 mg/dL 70-110 H TESTED AT [place] [address] ([facility]) (test code = [place] [facility] 1538) [address] POCT-GLUCOSE [id number] 17:30:00 Test Item Value Reference Range Interpretation Comments POC-GLUCOSE METER 84 mg/dL 70-110 TESTED AT [place] [address] ([facility]) (test code = [place] [facility] [address] 1538) [id number] 13:20:00 Test Item Value Reference Range Interpretation Comments PARTIAL THROMBOPLASTIN TIME 68.4 seconds 22.5-36.0 H (BEAKER) (test code = 760) BASIC METABOLIC [id number] 10:36:00 Test Item Value Reference Range Interpretation [...] NOT APPLICABLE FOR DIALYSIS PATIEN TS. POCT-GLUCOSE [id number] 07:43:00 Test Item Value Reference Range Interpretation Comments POC-GLUCOSE METER 84 mg/dL 70-110 TESTED AT [place] [address] ([facility]) (test code = [place] [facility] [address] 1538) [id number] 06:52:00 Test Item Value Reference Range Interpretation Comments PARTIAL THROMBOPLASTIN TIME 76.5 seconds 22.5-36.0 H (BEAKER) (test code = 760) PROTHROMBIN [id number] 06:51:00 Test Item Value Reference Range Interpretation [...] 0-1 PERCENT (BEAKER) (test code = 2801) [id number] 00:11:00 Test Item Value Reference Range Interpretation Comments PARTIAL THROMBOPLASTIN TIME 59.7 seconds 22.5-36.0 H ([facility]) (test code = 760) POCT-GLUCOSE [id number] 21:33:00 Test Item Value Reference Range Interpretation Comments POC-GLUCOSE METER 113 mg/dL 70-110 H TESTED AT [place] [address] ([facility]) (test code = [place] 1538) [address] POCT-GLUCOSE [id number] 18:08:00 Test Item Value Reference Range Interpretation Comments POC-GLUCOSE METER 128 mg/dL 70-110 H TESTED AT [place] [address] ([facility]) (test code = [place] 1538) [address] [id number] 16:51:00 Test Item Value Reference Range Interpretation Comments PARTIAL THROMBOPLASTIN TIME 71.6 seconds 22.5-36.0 H ([facility]) (test code = 760) POCT-GLUCOSE [id number] 12:39:00 Test Item Value Reference Range Interpretation Comments POC-GLUCOSE METER 124 mg/dL 70-110 H TESTED AT [place] [address] ([facility]) (test code = [place] 1538) [address] [id number] 09:07:00 Test Item Value Reference Range Interpretation Comments PARTIAL THROMBOPLASTIN TIME 96.6 seconds 22.5-36.0 H ([facility]) (test code = 760) POCT-GLUCOSE [id number] 07:48:00 Test Item Value Reference Range Interpretation Comments POC-GLUCOSE METER 105 mg/dL 70-110 TESTED AT [facility] 6720 (BEAKER) (test code = [place] 1538) [address] BASIC METABOLIC [id number] 01:54:00 Test Item Value Reference Range Interpretation [...] S NOT APPLICABLE FOR DIALYSIS PATIEN TS. [id number] 01:37:00 Test Item Value Reference Range Interpretation Comments PARTIAL THROMBOPLASTIN TIME 53.4 seconds 22.5-36.0 H (BEAKER) (test code = 760) PROTHROMBIN [id number] 01:36:00 Test Item Value Reference Range Interpretation [...] PERCENT (BEAKER) (test code = 2801) POCT-GLUCOSE [id number] 21:57:00 Test Item Value Reference Range Interpretation Comments POC-GLUCOSE METER 165 mg/dL 70-110 H TESTED AT [place] [address] ([facility]) (test code = [place] 1538) [address] [id number] 18:46:00 Test Item Value Reference Range Interpretation Comments PARTIAL THROMBOPLASTIN TIME 39.0 seconds 22.5-36.0 H ([facility]) (test code = 760) POCT-GLUCOSE [id number] 17:51:00 Test Item Value Reference Range Interpretation Comments POC-GLUCOSE METER 157 mg/dL 70-110 H TESTED AT [place] [address] ([facility]) (test code = [place] 1538) [address] POCT-GLUCOSE [id number] 17:09:00 Test Item Value Reference Range Interpretation Comments POC-GLUCOSE METER 162 mg/dL 70-110 H TESTED AT [place] [address] ([facility]) (test code = [place] 1538) [address] [id number] 16:07:00 Test Item Value Reference Range Interpretation Comments PARTIAL THROMBOPLASTIN TIME 117.0 seconds 22.5-36.0 H ([facility]) (test code = 760) POCT-GLUCOSE [id number] 13:28:00 Test Item Value Reference Range Interpretation Comments POC-GLUCOSE METER 88 mg/dL 70-110 TESTED AT [place] [address] ([facility]) (test code = [place] [facility] [address] 1538) [id number] 09:17:00 Test Item Value Reference Range Interpretation Comments PARTIAL THROMBOPLASTIN TIME 71.7 seconds 22.5-36.0 H ([facility]) (test code = 760) POCT-GLUCOSE [id number] 08:07:00 Test Item Value Reference Range Interpretation Comments POC-GLUCOSE METER 137 mg/dL 70-110 H TESTED AT [place] [address] ([facility]) (test code = [facility] Humberto [place] 1538) [address] [id number] 02:27:00 Test Item Value Reference Range Interpretation Comments PARTIAL THROMBOPLASTIN TIME 62.4 seconds 22.5-36.0 H ([facility]) (test code = 760) PROTHROMBIN [id number] 02:26:00 Test Item Value Reference Range Interpretation Comments PROTIME (BEAKER) (test code = 20.0 seconds 11.7-14.7 H 759) INR (BEAKER) (test code = 370) 1.7 <=5.9 RECOMMENDED COUMADIN/WARFARIN INR THERAPY RANGESSTANDARD DOSE: 2.0 - 3.0 Includes: PROPHYLAXIS forvenous thrombosis, systemic embolization; TREATMENT for venous thrombosis and/or pulmonary embolus.HIGH RISK: Target INR is 2.5-3.5 for patients with mechanical heart valves.BASIC METABOLIC [id number] 02:02:00 Test Item Value Reference Range Interpretation [...] PATIEN TS. CBC W/PLT COUNT & AUTO [id number] 01:42:00 Test Item Value Reference Range Interpretation [...] PERCENT (BEAKER) (test code = 2801) POCT-GLUCOSE [id number] 21:12:00 Test Item Value Reference Range Interpretation Comments POC-GLUCOSE METER 199 mg/dL 70-110 H TEST[facility] AT [facility] 67[facility] (test code = FOSTER Paul [facility] 1538) [address] POCT-GLUCOSE [id number] 17:39:00 Test Item Value Reference Range Interpretation Comments POC-GLUCOSE METER 145 mg/dL 70-110 H TESTED AT [facility] [address] ([facility]) (test code = [facility] 1538) [address] [id number] 17:33:00 Test Item Value Reference Range Interpretation Comments PARTIAL THROMBOPLASTIN TIME 47.3 seconds 22.5-36.0 H (BEAKER) (test code = 760) POCT-GLUCOSE [id number] 12:53:00 Test Item Value Reference Range Interpretation Comments POC-GLUCOSE METER 203 mg/dL 70-110 H TESTED AT [facility] [address] ([facility]) (test code = [facility] 1538) [address] POCT-GLUCOSE [id number] 08:28:00 Test Item Value Reference Range Interpretation Comments POC-GLUCOSE METER 98 mg/dL 70-110 TESTED AT [place] [address] ([facility]) (test code = [facility] [address] 1538) BASIC METABOLIC [id number] 05:52:00 Test Item Value Reference Range Interpretation [...] NOT APPLICABLE FOR DIALYSIS PATIEN TS. PROTHROMBIN TIME/[id number] 05:51:00 Test Item Value Reference Range Interpretation [...] PERCENT (BEAKER) (test code = 2801) POCT-GLUCOSE [id number] 20:54:00 Test Item Value Reference Range Interpretation Comments POC-GLUCOSE METER 126 mg/dL 70-110 H [facility] [place] [address] [facility] (test code = [facility] Humberto [facility] 1538) [address] POCT-GLUCOSE [id number] 18:47:00 Test Item Value Reference Range Interpretation Comments POC-GLUCOSE METER 70 mg/dL 70-110 TESTED AT [place] [address] ([facility]) (test code = [facility] [address] 1538) POCT-GLUCOSE [id number] 13:25:00 Test Item Value Reference Range Interpretation Comments POC-GLUCOSE METER 120 mg/dL 70-110 H TESTED AT [place] [address] [facility] (test code = [facility] 1538) [address] POCT-GLUCOSE [id number] 09:32:00 Test Item Value Reference Range Interpretation Comments POC-GLUCOSE METER 104 mg/dL 70-110 TESTED AT [place] [address] ([facility] (test code = [facility] 1538) [address] BASIC METABOLIC [id number] 05:59:00 Test Item Value Reference Range Interpretation [...] NOT APPLICABLE FOR DIALYSIS PATIEN TS. PROTHROMBIN [id number] 05:20:00 Test Item Value Reference Range Interpretation [...] PERCENT (BEAKER) (test code = 2801) POCT-GLUCOSE [id number] 21:14:00 Test Item Value Reference Range Interpretation Comments POC-GLUCOSE METER 200 mg/dL 70-110 H TESTED AT [place] [address] ([facility]) (test code = FOSTER Paul [facility] 1538) [address] POCT-GLUCOSE [id number] 17:34:00 Test Item Value Reference Range Interpretation Comments POC-GLUCOSE METER 143 mg/dL 70-110 H TESTED AT [place] [address] ([facility]) (test code = [place] Paul [facility] 1538) [address] POCT-GLUCOSE [id number] 12:04:00 Test Item Value Reference Range Interpretation Comments POC-GLUCOSE METER 160 mg/dL 70-110 H TESTED AT [place] [address] ([facility]) (test code = FOSTER Paul [facility] 1538) [address] POCT-GLUCOSE [id number] 08:08:00 Test Item Value Reference Range Interpretation Comments POC-GLUCOSE METER 154 mg/dL 70-110 H TESTED AT [place] [address] ([facility] (test code = FOSTER Paul [facility] 1538) [address] BASIC METABOLIC [id number] 06:33:00 Test Item Value Reference Range Interpretation [...] S NOT APPLICABLE FOR DIALYSIS PATIEN TS. [id number] 06:01:00 Test Item Value Reference Range Interpretation Comments PARTIAL THROMBOPLASTIN TIME 117.2 seconds 22.5-36.0 H (BEAKER) (test code = 760) PROTHROMBIN TIME/[id number] 05:56:00 Test Item Value Reference Range Interpretation [...] PERCENT (BEAKER) (test code = 2801) POCT-GLUCOSE [id number] 21:37:00 Test Item Value Reference Range Interpretation Comments POC-GLUCOSE METER 121 mg/dL 70-110 H TESTED AT [facility] 6720 (BEAKER) (test code = [place] 1538) [address] POCT-GLUCOSE [id number] 19:01:00 Test Item Value Reference Range Interpretation Comments POC-GLUCOSE METER 191 mg/dL 70-110 H TESTED AT [facility] 6720 (BEAKER) (test code = [place] 1538) [address] [id number] 18:31:00 Test Item Value Reference Range Interpretation Comments PARTIAL THROMBOPLASTIN TIME 86.2 seconds 22.5-36.0 H (BEAKER) (test code = 760) POCT-GLUCOSE [id number] 13:05:00 Test Item Value Reference Range Interpretation Comments POC-GLUCOSE METER 130 mg/dL 70-110 H TESTED AT [facility] 6720 (BEAKER) (test code = FOSTER Paul [facility] 1538) [address] RAD, CHEST, 1 VIEW, NON [id number] 12:22:00Reason for exam:->pleural effusionsShould this be performed [...] MDReport Verified Date/Time: 12/07/2018 12:22:50 Reading Location: [address] Neuro Reading Room [id number] 11:39:00 Test Item Value Reference Range Interpretation Comments PARTIAL THROMBOPLASTIN TIME 100.1 seconds 22.5-36.0 H (BEAKER) (test code = 760) BODY FLUID CULTURE + GRAM [id number] 10:13:00 Test Item Value Reference Range Interpretation Comments CULTURE (BEAKER) (test No growth code = 1095) GRAM STAIN RESULT <1+ White blood cells (BEAKER) (test code = seen 1123) GRAM STAIN RESULT No organisms seen (BEAKER) (test code = 35799) POCT-GLUCOSE [id number] 08:51:00 Test Item Value Reference Range Interpretation Comments POC-GLUCOSE METER 90 mg/dL 70-110 TESTED AT [facility] 6720 (BEAKER) (test code = [place] [address] 1538) BASIC METABOLIC [id number] 07:31:00 Test Item Value Reference Range Interpretation [...] S NOT APPLICABLE FOR DIALYSIS PATIEN TS. [id number] 05:21:00 Test Item Value Reference Range Interpretation Comments PARTIAL THROMBOPLASTIN TIME 104.0 seconds 22.5-36.0 H (BEAKER) (test code = 760) PROTHROMBIN TIME/[id number] 04:50:00 Test Item Value Reference Range Interpretation [...] 0-1 PERCENT (BEAKER) (test code = 2801) [id number] 20:33:00 Test Item Value Reference Range Interpretation Comments PARTIAL THROMBOPLASTIN TIME 87.6 seconds 22.5-36.0 H (BEAKER) (test code = 760) POCT-GLUCOSE [id number] 19:30:00 Test Item Value Reference Range Interpretation Comments POC-GLUCOSE METER 112 mg/dL 70-110 H TESTED AT [facility] 6720 (BEAKER) (test code = MARIA GPR Humberto [place] 1538) [address] [id number] 13:55:00 Test Item Value Reference Range Interpretation Comments PARTIAL THROMBOPLASTIN TIME 85.9 seconds 22.5-36.0 H (BEAKER) (test code = 760) POCT-GLUCOSE [id number] 09:12:00 Test Item Value Reference Range Interpretation Comments POC-GLUCOSE METER 112 mg/dL 70-110 H TESTED AT [facility] 6720 ([facility] (test code = [facility] 1538) [address] BASIC METABOLIC [id number] 08:53:00 Test Item Value Reference Range Interpretation [...] S NOT APPLICABLE FOR DIALYSIS PATIEN TS. [id number] 06:04:00 Test Item Value Reference Range Interpretation Comments PARTIAL THROMBOPLASTIN TIME 105.5 seconds 22.5-36.0 H (BEAKER) (test code = 760) PROTHROMBIN TIME/[id number] 05:44:00 Test Item Value Reference Range Interpretation [...] (test code = 2801) CT, CHEST, WITHOUT [id number] 03:17:00FINAL REPORT EXAM: CT of the chest, [...] left pleural effusion with associated compressive atelectasis. Ezrbu-pm-tywkblte loculated right pleural effusion with pleural thickening [...] MDReport Verified Date/Time: 12/06/2018 03:17:03 Reading Location: [facility] B1 C013Y CT Body Reading Room POCT-GLUCOSE [id number] 21:22:00 Test Item Value Reference Range Interpretation Comments POC-GLUCOSE METER 171 mg/dL 70-110 H TESTED AT [place] [address] ([facility]) (test code = FOSTER Paul [facility] 1538) [address] POCT-GLUCOSE [id number] 17:58:00 Test Item Value Reference Range Interpretation Comments POC-GLUCOSE METER 128 mg/dL 70-110 H TESTED AT [place] [address] ([facility]) (test code = [facility] Humberto [facility] 1538) [address] POCT-GLUCOSE [id number] 13:24:00 Test Item Value Reference Range Interpretation Comments POC-GLUCOSE METER 129 mg/dL 70-110 H TESTED AT [place] [address] ([facility]) (test code = FOSTER Paul [facility] 1538) [address] LACTATE DEHYDROGENASE (LDH)2018-12-05 13:14:00 Test Item Value Reference Range Interpretation Comments LACTATE DEHYDROGENASE ([facility]) (test 291 U/L 125-220 H code = 635) [id number] 13:10:00 Test Item Value Reference Range Interpretation Comments PARTIAL THROMBOPLASTIN TIME 91.7 seconds 22.5-36.0 H ([facility]) (test code = 760) POCT-GLUCOSE [id number] 08:19:00 Test Item Value Reference Range Interpretation Comments POC-GLUCOSE METER 106 mg/dL 70-110 TESTED AT [place] [address] ([facility]) (test code = [facility] Humberto [facility] 1538) [address] BASIC METABOLIC [id number] 07:05:00 Test Item Value Reference Range Interpretation [...] S NOT APPLICABLE FOR DIALYSIS PATIEN TS. [id number] 06:32:00 Test Item Value Reference Range Interpretation [...] 2.5-3.5 for patients with mechanical heart valves.PROTHROMBIN TIME/[id number] 06:30:00 Test Item Value Reference Range Interpretation [...] 0-1 PERCENT (BEAKER) (test code = 2801) [id number] 00:40:00 Test Item Value Reference Range Interpretation Comments PARTIAL THROMBOPLASTIN TIME 63.1 seconds 22.5-36.0 H (BEAKER) (test code = 760) POCT-GLUCOSE [id number] 00:12:00 Test Item Value Reference Range Interpretation Comments POC-GLUCOSE METER 124 mg/dL 70-110 H TESTED AT [facility] 6720 (BEAKER) (test code = [place] 1538) [address] HEPATITIS B SURFACE [id number] 22:54:00 Test Item Value Reference Range Interpretation Comments HEPATITIS B SURFACE ANTIGEN (2) Nonreactive Nonreactive (BEAKER) (test code = 2585) For chronic HD patients, draw HBsAg with each admission then every 30 days.BODY FLUID CELL COUNT WITH [id number] 20:34:00 Test Item Value Reference Range Interpretation Comments APPEARANCE FLUID (BEAKER) (test Cloudy Clear A code = 510) COLOR FLUID (BEAKER) (test code Brown Colorless, Straw A = 511) RBC FLUID (BEAKER) (test code = 26389 /cu mm <=1 H 513) ADJUSTED WBC [...] code = 2873) LACTATE DEHYDROGENASE (LDH), BODY [id number] 19:43:00 Test Item Value Reference Range Interpretation [...] local 1% lidocaine anesthesia was administered.A 4 Albanian catheter was advanced into the largest pocket of the septated pleural effusion and 300 ccof bloody fluid was removed. The catheter was removed without immediate complication. Samples were sent for analysis. IMPRESSION:Uncomplicated ultrasound-guided right thoracentesis with 300 cc fluid removed. Signed: Raimundo Kim MDReport Verified Date/Time: 12/04/2018 18:00:50 Reading Location: [address] Ultrasound Reading Room RAD, CHEST, 1 VIEW, NON [id number] 17:23:00Reason for exam:->s/p right thoracentesisShould this be [...] MDReport Verified Date/Time: 12/04/2018 17:23:06 Reading Location: [facility] Mammo Reading Room C. DIFFICILE GDH [id number] 10:01:00 Test Item Value Reference Range Interpretation Comments CDT TOXIN (test code Negative Negative = [id number]) CDT GDH ANTIGEN Positive Negative A C. difficile present but (test code = toxin not detec jayla. [id number]) Indicates colon ization with non-toxige ron strain [...] of kit performance was done by the [facility] Microbiology Lab prior to clinical use.[id number] 09:39:00 Test Item Value Reference Range Interpretation Comments PARTIAL THROMBOPLASTIN TIME 79.4 seconds 22.5-36.0 H (BEAKER) (test code = 760) OCCULT BLOOD, [id number] 05:59:00 Test Item Value Reference Range Interpretation Comments FECAL OCCULT BLOOD (BEAKER) (test Negative Negative code = 618) BASIC METABOLIC [id number] 02:50:00 Test Item Value Reference Range Interpretation [...] S NOT APPLICABLE FOR DIALYSIS PATIEN TS. [id number] 02:50:00 Test Item Value Reference Range Interpretation Comments PARTIAL THROMBOPLASTIN TIME 35.3 seconds 22.5-36.0 (BEAKER) (test code = 760) Prior to initiating heparinPROTHROMBIN TIME/[id number] 02:49:00 Test Item Value Reference Range Interpretation [...] acute neurological disease, and persistent tachyarrhythmia.HEPATIC FUNCTION [id number] 02:43:00 Test Item Value Reference Range Interpretation [...] 6-55 347) CBC W/PLT COUNT & AUTO [id number] 02:21:00 Test Item Value Reference Range Interpretation [...] PERCENT (BEAKER) (test code = 2801) POCT-GLUCOSE [id number] 21:22:00 Test Item Value Reference Range Interpretation Comments POC-GLUCOSE METER 192 mg/dL 70-110 H TESTED AT [facility] 6720 (JARROD) (test code = [place] 1538) [address] TROPONIN [id number] 17:09:00 Test Item Value Reference Range Interpretation [...] and persistent tachyarrhythmia.RAD, CHEST, 1 VIEW, NON [id number] 15:36:00Reason for exam:->SHORTNESS OF BREATHShould this be performed at the bedside?->YesFINAL REPORT AP chest HISTORY: Shortness of breath. COMPARISON: 11/03/2017. IMPRESSION: Cardiomegaly. Mild interstitial edema. Right effusion and adjacent atelectasis. No pneumothorax. Signed: [facility] Verified Date/Time: 12/03/2018 15:36:19 Reading Location: [address] Radiology Reading Room TROPONIN [id number] 14:48:00 Test Item Value Reference Range Interpretation [...] (BEAKER) (test code = 700) BASIC METABOLIC [id number] 14:40:00 Test Item Value Reference Range Interpretation [...] S NOT APPLICABLE FOR DIALYSIS PATIEN TS. [id number] 14:34:00 Test Item Value Reference Range Interpretation [...] (test code = 2801) RAD, CHEST, 2 [id number] 15:24:00Reason for Exam:->chronic Diastolic heart FailureFINAL REPORT [...] MDReport Verified Date/Time: 11/03/2018 15:24:42 Reading Location: [address] Radiology Reading Room MISCELLANEOUS LAB [id number] 08:22:00 Test Item Value Reference Range Interpretation Comments SCAN RESULT (test code = 2706462) PROTHROMBIN TIME/[id number] 08:37:00 Test Item Value Reference Range Interpretation Comments PROTIME (BEAKER) (test code = 24.8 seconds 11.7-14.7 H 759) INR (BEAKER) (test code = 370) 2.2 <=5.9 RECOMMENDED COUMADIN/WARFARIN INR THERAPY RANGESSTANDARD DOSE: 2.0 - 3.0 Includes: PROPHYLAXIS forvenous thrombosis, systemic embolization; TREATMENT for venous thrombosis and/or pulmonary embolus.HIGH RISK: Target INR is 2.5-3.5 for patients with mechanical heart valves.POCT-GLUCOSE [id number] 08:10:00 Test Item Value Reference Range Interpretation Comments POC-GLUCOSE METER 89 mg/dL 70-110 TESTED AT [facility] 6720 (BEAKER) (test code = [place] [address] 1538) BASIC METABOLIC [id number] 06:29:00 Test Item Value Reference Range Interpretation [...] S NOT APPLICABLE FOR DIALYSIS PATIEN TS. [id number] 06:28:00 Test Item Value Reference Range Interpretation Comments MAGNESIUM (BEAKER) (test code = 1.8 mg/dL 1.6-2.6 627) [id number] 06:14:00 Test Item Value Reference Range Interpretation Comments PARTIAL THROMBOPLASTIN TIME 64.7 seconds 22.5-36.0 H (BEAKER) (test code = 760) CBC W/PLT COUNT & AUTO [id number] 05:58:00 Test Item Value Reference Range Interpretation [...] PERCENT (BEAKER) (test code = 2801) POCT-GLUCOSE [id number] 21:14:00 Test Item Value Reference Range Interpretation Comments POC-GLUCOSE METER 135 mg/dL 70-110 H TESTED AT [place] [address] ([facility]) (test code = FOSTER BRAND[place] 1538) [address] [id number] 19:36:00 Test Item Value Reference Range Interpretation Comments PARTIAL THROMBOPLASTIN TIME 88.6 seconds 22.5-36.0 H ([facility]) (test code = 760) POCT-GLUCOSE [id number] 18:27:00 Test Item Value Reference Range Interpretation Comments POC-GLUCOSE METER 88 mg/dL 70-110 TESTED AT [facility] [address] ([facility]) (test code = [place] [address] 1538) POCT-GLUCOSE [id number] 12:05:00 Test Item Value Reference Range Interpretation Comments POC-GLUCOSE METER 92 mg/dL 70-110 TESTED AT [facility] [address] ([facility]) (test code = [place] [address] 1538) [id number] 11:46:00 Test Item Value Reference Range Interpretation Comments PARTIAL THROMBOPLASTIN TIME 74.3 seconds 22.5-36.0 H (AKER) (test code = 760) POCT-GLUCOSE [id number] 10:36:00 Test Item Value Reference Range Interpretation Comments POC-GLUCOSE METER 101 mg/dL 70-110 TESTED AT [facility] 67 ([facility]) (test code = FOSTER Paul [facility] 1538) [address] POCT-GLUCOSE [id number] 07:10:00 Test Item Value Reference Range Interpretation Comments POC-GLUCOSE METER 92 mg/dL 70-110 TESTED AT [place] [address] ([facility]) (test code = FOSTER Paul [facility] [address] 1538) PROTHROMBIN TIME/[id number] 01:41:00 Test Item Value Reference Range Interpretation Comments PROTIME (BEAKER) (test code = 22.8 seconds 11.7-14.7 H 759) INR ([facility]) (test code = 370) 2.0 <=5.9 RECOMMENDED COUMADIN/WARFARIN INR THERAPY RANGESSTANDARD DOSE: 2.0 - 3.0 Includes: PROPHYLAXIS forvenous thrombosis, systemic embolization; TREATMENT for venous thrombosis and/or pulmonary embolus.HIGH RISK: Target INR is 2.5-3.5 for patients with mechanical heart valves.While on warfarin.[id number] 01:41:00 Test Item Value Reference Range Interpretation Comments PARTIAL THROMBOPLASTIN TIME 52.3 seconds 22.5-36.0 H (BEAKER) (test code = 760) While on warfarin.BASIC METABOLIC [id number] 01:37:00 Test Item Value Reference Range Interpretation [...] S NOT APPLICABLE FOR DIALYSIS PATIEN TS. [id number] 01:32:00 Test Item Value Reference Range Interpretation Comments MAGNESIUM (BEAKER) (test code = 1.8 mg/dL 1.6-2.6 627) CBC W/PLT COUNT & AUTO [id number] 01:18:00 Test Item Value Reference Range Interpretation [...] 0-1 PERCENT (BEAKER) (test code = 2801) [id number] 23:23:00 Test Item Value Reference Range Interpretation Comments PARTIAL THROMBOPLASTIN TIME 125.2 seconds 22.5-36.0 H (BEAKER) (test code = 760) POCT-GLUCOSE [id number] 21:19:00 Test Item Value Reference Range Interpretation Comments POC-GLUCOSE METER 165 mg/dL 70-110 H [facility] [place] [address] [facility] (test code = [facility] 1538) [address] POCT-GLUCOSE [id number] 18:34:00 Test Item Value Reference Range Interpretation Comments POC-GLUCOSE METER 92 mg/dL 70-110 TESTED AT [place] [address] ([facility] (test code = [facility] [address] 1538) [id number] 17:17:00 Test Item Value Reference Range Interpretation Comments PARTIAL THROMBOPLASTIN TIME 75.2 seconds 22.5-36.0 H (BEAKER) (test code = 760) POCT-GLUCOSE [id number] 12:48:00 Test Item Value Reference Range Interpretation Comments POC-GLUCOSE METER 105 mg/dL 70-110 TESTED AT [place] [address] ([facility] (test code = [facility] 1538) [address] RAD, CHEST, 1 VIEW, NON [id number] 11:00:00Reason for exam:->eval right effusionShould this be performed at the bedside?->YesFINAL REPORT Comparison: 08/15/2018 TECHNIQUE: Single view of the chest FINDINGS: Small to moderate right pleural effusion is stable. Small left pleural effusion may be slightly increased. Vascular congestion seen. No other significant change. Signed: Kyle Rome MDReport Verified Date/Time: 08/18/2018 11:00:36 Reading Location: [facility] Radiology Reading Room Electronicallysigned by: KYLE ROME M.D. on 08/18/2018 11:00 [id number] 09:48:00 Test Item Value Reference Range Interpretation Comments PARTIAL THROMBOPLASTIN TIME 48.8 seconds 22.5-36.0 H (BEAKER) (test code = 760) POCT-GLUCOSE [id number] 07:37:00 Test Item Value Reference Range Interpretation Comments POC-GLUCOSE METER 96 mg/dL 70-110 TESTED AT [facility] 6720 (BEAKER) (test code = FOSTER Paul [facility] [address] 1538) BASIC METABOLIC [id number] 02:24:00 Test Item Value Reference Range Interpretation [...] S NOT APPLICABLE FOR DIALYSIS PATIEN TS. [id number] 02:22:00 Test Item Value Reference Range Interpretation Comments MAGNESIUM (BEAKER) (test code = 1.7 mg/dL 1.6-2.6 627) [id number] 02:15:00 Test Item Value Reference Range Interpretation Comments PARTIAL THROMBOPLASTIN TIME 98.9 seconds 22.5-36.0 H (BEAKER) (test code = 760) PROTHROMBIN [id number] 02:13:00 Test Item Value Reference Range Interpretation [...] PERCENT (BEAKER) (test code = 2801) POCT-GLUCOSE [id number] 21:51:00 Test Item Value Reference Range Interpretation Comments POC-GLUCOSE METER 98 mg/dL 70-110 TESTED AT [place] [address] ([facility]) (test code = [facility] [address] 1538) [id number] 18:51:00 Test Item Value Reference Range Interpretation Comments PARTIAL THROMBOPLASTIN TIME 56.1 seconds 22.5-36.0 H (BEAKER) (test code = 760) [id number] 17:06:00 Test Item Value Reference Range Interpretation Comments PARTIAL THROMBOPLASTIN TIME 121.9 seconds 22.5-36.0 H (BEAKER) (test code = 760) POCT-GLUCOSE [id number] 16:46:00 Test Item Value Reference Range Interpretation Comments POC-GLUCOSE METER 135 mg/dL 70-110 H TESTED AT [place] [address] ([facility]) (test code = [facility] 1538) [address] POCT-GLUCOSE [id number] 13:28:00 Test Item Value Reference Range Interpretation Comments POC-GLUCOSE METER 96 mg/dL 70-110 TESTED AT [facility] 6720 (BEAKER) (test code = [place] [address] 1538) [id number] 09:15:00 Test Item Value Reference Range Interpretation Comments PARTIAL THROMBOPLASTIN TIME 58.1 seconds 22.5-36.0 H (BEAKER) (test code = 760) BASIC METABOLIC [id number] 07:31:00 Test Item Value Reference Range Interpretation [...] S NOT APPLICABLE FOR DIALYSIS PATIEN TS. [id number] 07:19:00 Test Item Value Reference Range Interpretation Comments PHOSPHORUS (BEAKER) (test code = 3.7 mg/dL 2.3-4.7 604) [id number] 07:19:00 Test Item Value Reference Range Interpretation Comments MAGNESIUM (BEAKER) (test code = 1.7 mg/dL 1.6-2.6 627) [id number] 07:07:00 Test Item Value Reference Range Interpretation Comments PARTIAL THROMBOPLASTIN TIME 124.4 seconds 22.5-36.0 H (BEAKER) (test code = 760) PROTHROMBIN TIME/[id number] 07:02:00 Test Item Value Reference Range Interpretation [...] 0-1 PERCENT (BEAKER) (test code = 2801) [id number] 23:01:00 Test Item Value Reference Range Interpretation Comments PARTIAL THROMBOPLASTIN TIME 46.5 seconds 22.5-36.0 H (BEAKER) (test code = 760) POCT-GLUCOSE [id number] 22:45:00 Test Item Value Reference Range Interpretation Comments POC-GLUCOSE METER 144 mg/dL 70-110 H TESTED AT [place] [address] ([facility]) (test code = [place] 1538) [address] [id number] 15:02:00 Test Item Value Reference Range Interpretation Comments PARTIAL THROMBOPLASTIN TIME 56.1 seconds 22.5-36.0 H ([facility]) (test code = 760) POCT-GLUCOSE [id number] 14:39:00 Test Item Value Reference Range Interpretation Comments POC-GLUCOSE METER 189 mg/dL 70-110 H TESTED AT [place] [address] ([facility]) (test code = [place] 1538) [address] HIV-1 PCR, [id number] 13:58:00 Test Item Value Reference Range Interpretation Comments HIV-1 NUMERIC RESULT (BEAKER) (test 170 Cp/mL <20 H code = 2704) This test uses a Real-Time Polymerase Chain Reaction (RT-PCR) methodology to detect a highly conserved region of the HIV-1 gag gene and was performed using the [employer]ICH AmpliPrep/ERICH TaqMan HIV-1 test kit version 2.0 ([employer]Reportable range for this assay is 20 - 10,000,000 copies per mL (1.3 - 7.0 Log copies/mL).[id number] 12:54:00 Test Item Value Reference Range Interpretation Comments PARTIAL THROMBOPLASTIN TIME 143.6 seconds 22.5-36.0 H (BEAKER) (test code = 760) [id number] 10:00:00Medical Cytology Report Case: [id number] Authorizing Provider: Alison Solano MD Collected: 08/13/2018 1803 Ordering Location: [address] Received: 08/14/2018 0972 Service Pathologist: Yamil Hamm MD Specimen: Pleural, Right RIGHT PLEURAL FLUID (CYTOSPINS AND CELL BLOCK): - NO MALIGNANT CELLS IDENTIFIED (SEE COMMENT) Signing Pathologist Direct Phone Line: [phone] signed by Yamil Hamm MD on 08/16/2018 at 10:00 AMCytospins show a few mesothelial cells, macrophages in a background of mixed inflammatory cells composed of mainly lymphocytes. Cell block sections are predominantly paucicellular with rare groups of epit helioid cells with mild atypia. Immunostains were performed [...] thoracentesis may be considered when fluid reaccumulates. 83591, 77657, 35069, 72753 x 2Left pleural effusion, history of AIDS, Kaposi's sarcoma, hepatitis C.RIGHT PLEURAL FLUID 300 mls bloody; 4 cytospins, cell blockCollected: [id number]: [id number] interpretation of this case included the use of immunohistochemistry or special stains. Please see the immunohistochemistry results in the COMMENT section. Immunohistochemistry technical testing was performed at [facility], Pathology Laboratory where it was developed [...] Improvement Amendments of 1988 (CLIA-88) as qualified topercritical access hospital high complexity clinical laboratory testing.[facility], Department of Pathology, [address] [place] [address], [facility] [facility], Department of Pathology, [address] [place] [address], [facility], [address] [place] [address], NNQT-GLUCOSE [id number] 08:29:00 Test Item Value Reference Range Interpretation Comments POC-GLUCOSE METER 96 mg/dL 70-110 [facility] [place] [address] [facility] (test code = FOSTER Paul [facility] [id number]) BODY FLUID CULTURE + GRAM [id number] 07:54:00 Test Item Value Reference Range Interpretation Comments CULTURE (BEAKER) (test code No growth = 1095) GRAM STAIN RESULT (BEAKER) <1+ WBCs (test code = 1123) GRAM STAIN RESULT (BEAKER) No organisms seen (test code = 64498) BASIC METABOLIC [id number] 06:30:00 Test Item Value Reference Range Interpretation [...] S NOT APPLICABLE FOR DIALYSIS PATIEN TS. [id number] 06:26:00 Test Item Value Reference Range Interpretation Comments MAGNESIUM (BEAKER) (test code = 1.6 mg/dL 1.6-2.6 627) [id number] 05:48:00 Test Item Value Reference Range Interpretation Comments PARTIAL THROMBOPLASTIN TIME 80.3 seconds 22.5-36.0 H (BEAKER) (test code = 760) While on warfarin.PROTHROMBIN TIME/[id number] 05:46:00 Test Item Value Reference Range Interpretation [...] valves.While on warfarin.CBC W/PLT COUNT & AUTO [id number] 05:28:00 Test Item Value Reference Range Interpretation [...] 0-1 PERCENT (BEAKER) (test code = 2801) [id number] 22:09:00 Test Item Value Reference Range Interpretation Comments PARTIAL THROMBOPLASTIN TIME 61.5 seconds 22.5-36.0 H (BEAKER) (test code = 760) RAD, CHEST, 1 VIEW, NON [id number] 20:20:00Reason for exam:->eval right effusionShould this be [...] Anderson Verified Date/Time: 08/15/2018 20:20:24 Reading Location: [facility] Radiology Reading Room POCT-GLUCOSE [id number] 19:05:00 Test Item Value Reference Range Interpretation Comments POC-GLUCOSE METER 87 mg/dL 70-110 TESTED AT [place] [address] ([facility]) (test code = [facility] [address] 1538) POCT-GLUCOSE [id number] 13:12:00 Test Item Value Reference Range Interpretation Comments POC-GLUCOSE METER 162 mg/dL 70-110 H TESTED AT [place] [address] ([facility]) (test code = [facility] 1538) [address] [id number] 12:48:00 Test Item Value Reference Range Interpretation Comments PARTIAL THROMBOPLASTIN TIME 89.1 seconds 22.5-36.0 H ([facility]) (test code = 760) POCT-GLUCOSE [id number] 09:58:00 Test Item Value Reference Range Interpretation Comments POC-GLUCOSE METER 229 mg/dL 70-110 H TESTED AT [place] [address] ([facility]) (test code = [facility] 1538) [address] BASIC METABOLIC [id number] 05:40:00 Test Item Value Reference Range Interpretation [...] PATIEN TS. CBC W/PLT COUNT & AUTO [id number] 05:38:00 Test Item Value Reference Range Interpretation [...] 0-1 PERCENT (BEAKER) (test code = 2801) [id number] 05:28:00 Test Item Value Reference Range Interpretation Comments MAGNESIUM (BEAKER) (test code = 1.8 mg/dL 1.6-2.6 627) [id number] 04:47:00 Test Item Value Reference Range Interpretation Comments PARTIAL THROMBOPLASTIN TIME 60.9 seconds 22.5-36.0 H (BEAKER) (test code = 760) PROTHROMBIN TIME/[id number] 04:46:00 Test Item Value Reference Range Interpretation Comments PROTIME (BEAKER) (test code = 17.9 seconds 11.7-14.7 H 759) INR (BEAKER) (test code = 370) 1.5 <=5.9 RECOMMENDED COUMADIN/WARFARIN INR THERAPY RANGESSTANDARD DOSE: 2.0 - 3.0 Includes: PROPHYLAXIS forvenous thrombosis, systemic embolization; TREATMENT for venous thrombosis and/or pulmonary embolus.HIGH RISK: Target INR is 2.5-3.5 for patients with mechanical heart valves.[id number] 20:56:00 Test Item Value Reference Range Interpretation Comments PARTIAL THROMBOPLASTIN TIME 52.1 seconds 22.5-36.0 H (BEAKER) (test code = 760) CT, CHEST, WITHOUT [id number] 19:06:00S/p fall in Nov--> right effusion, tapped [...] right paratracheal mediastinal lymph node. Signed: [facility] Verified Date/Time: 08/14/2018 19:06:09 Reading Location: [address] Reading Room [id number] 12:40:00 Test Item Value Reference Range Interpretation Comments PARTIAL THROMBOPLASTIN TIME 48.4 seconds 22.5-36.0 H (BEAKER) (test code = 760) CD4 T CELL [id number] 11:15:00 Test Item Value Reference Range Interpretation [...] 107-698 L (BEAKER) (test code = 3491) [id number] 10:48:00 Test Item Value Reference Range Interpretation Comments PHOSPHORUS (BEAKER) (test code = 5.2 mg/dL 2.3-4.7 H 604) BASIC METABOLIC [id number] 07:13:00 Test Item Value Reference Range Interpretation [...] S NOT APPLICABLE FOR DIALYSIS PATIEN TS. [id number] 07:11:00 Test Item Value Reference Range Interpretation Comments MAGNESIUM (BEAKER) (test code = 1.8 mg/dL 1.6-2.6 627) [id number] 07:00:00 Test Item Value Reference Range Interpretation Comments PARTIAL THROMBOPLASTIN TIME 59.2 seconds 22.5-36.0 H (BEAKER) (test code = 760) PROTHROMBIN TIME/[id number] 06:59:00 Test Item Value Reference Range Interpretation [...] 0-1 PERCENT (BEAKER) (test code = 2801) [id number] 00:30:00 Test Item Value Reference Range Interpretation Comments PARTIAL THROMBOPLASTIN TIME 56.7 seconds 22.5-36.0 H (BEAKER) (test code = 760) BODY FLUID CELL COUNT WITH [id number] 19:28:00 Test Item Value Reference Range Interpretation Comments APPEARANCE FLUID (BEAKER) (test Cloudy Clear A code = 510) COLOR FLUID (BEAKER) (test code Red Colorless, Straw A = 511) RBC FLUID (BEAKER) (test code = 63390 /cu mm <=1 H 513) ADJUSTED WBC [...] Tube (test code = 2873) ALBUMIN, BODY [id number] 18:40:00 Test Item Value Reference Range Interpretation Comments ALBUMIN FLUID (BEAKER) (test code = 2.1 gm/dL 501) Reference Range: No Normals Assay performance has not been validated for this type of specimen.LACTATE DEHYDROGENASE (LDH), BODY [id number] 18:40:00 Test Item Value Reference Range Interpretation [...] 125-220 H code = 635) HEPATIC FUNCTION [id number] 18:40:00 Test Item Value Reference Range Interpretation [...] 6-55 347) RAD, CHEST, 1 VIEW, NON [id number] 17:56:00Reason for exam:->post Right thoracentesisShould this be [...] appendage closure. Interstitial edema. Signed: Katherine Arteaga Verified Date/Time: 08/13/2018 17:56:18 Reading Location: [facility] C013W Consult Reading Room U/S, [id number] 16:22:00Reason for exam:->shortness of breath, recurrent right pleural effusionShould this be performed at the bedside?->NoFINAL REPORT Ultrasound guided right thoracentesis, 08/13/2018. Clinical His tory: Right pleural effusion. Modality: Ultrasound. Sedation: None. Beauty Parlor Cleaner: Gini. Homicide Squad Captain: None. Estimated Blood Loss: 1cc Specimen: 1600 [...] Musa Verified Date/Time: 08/13/2018 16:22:16 Reading Location: [facility] B1 P006J Ultrasound Reading Room [id number] 07:18:00 Test Item Value Reference Range Interpretation Comments MAGNESIUM (BEAKER) (test code = 2.0 mg/dL 1.6-2.6 627) BASIC METABOLIC [id number] 07:18:00 Test Item Value Reference Range Interpretation [...] PATIEN TS. RAD, CHEST, 1 VIEW, NON [id number] 06:25:00Reason for exam:->SOBShould this be performed at [...] Taylor Verified Date/Time: 08/13/2018 06:25:21 Reading Location: [address] Transitional Re ading Room [id number] 05:49:00 Test Item Value Reference Range Interpretation Comments PARTIAL THROMBOPLASTIN TIME 42.0 seconds 22.5-36.0 H (BEAKER) (test code = 760) PROTHROMBIN TIME/[id number] 05:48:00 Test Item Value Reference Range Interpretation [...] PERCENT (BEAKER) (test code = 2801) POCT-GLUCOSE [id number] 18:30:00 Test Item Value Reference Range Interpretation Comments POC-GLUCOSE METER 80 mg/dL 70-110 TESTED AT [facility] 6720 [facility] (test code = FOSTER Paul [facility] [address] 1538) RAD, CHEST, 1 VIEW, NON [id number] 13:46:00Reason for exam:->evaluate pleural effusionShould this be performed at the bedside?->YesFINAL REPORT Comparison: 08/02/2018 TECHNIQUE: Single view of the chest FINDINGS Bilateral interstitial and airspace opacities are stable. Bilateral pleural effusions seen, right greater than left. No gross new lung parenchymal changes. Post surgical changes in the mediastinum. IMPRESSION: No significant interval change. Signed: Kyle Rome MDReport Verified Date/Time: 08/06/2018 13:46:20 Reading Location: [facility] Radiology Reading Room [id number] 09:33:00 Test Item Value Reference Range Interpretation Comments PARTIAL THROMBOPLASTIN TIME 113.6 seconds 22.5-36.0 H (BEAKER) (test code = 760) [id number] 06:48:00 Test Item Value Reference Range Interpretation [...] heart valves.While on warfarin.While on warfarin.BASIC METABOLIC [id number] 06:45:00 Test Item Value Reference Range Interpretation [...] NOT APPLICABLE FOR DIALYSIS PATIEN TS. PROTHROMBIN [id number] 06:43:00 Test Item Value Reference Range Interpretation [...] WBC 0-0 (BEAKER) (test code = 413) [id number] 20:40:00 Test Item Value Reference Range Interpretation Comments PARTIAL THROMBOPLASTIN TIME 81.7 seconds 22.5-36.0 H (BEAKER) (test code = 760) [id number] 14:05:00 Test Item Value Reference Range Interpretation Comments PARTIAL THROMBOPLASTIN TIME 91.5 seconds 22.5-36.0 H (BEAKER) (test code = 760) BASIC METABOLIC [id number] 07:02:00 Test Item Value Reference Range Interpretation [...] S NOT APPLICABLE FOR DIALYSIS PATIEN TS. [id number] 06:47:00 Test Item Value Reference Range Interpretation [...] valves.Ok to add onOk to add onPROTHROMBIN TIME/[id number] 06:46:00 Test Item Value Reference Range Interpretation [...] 0-1 PERCENT (BEAKER) (test code = 2801) [id number] 16:22:00 Test Item Value Reference Range Interpretation Comments PARTIAL THROMBOPLASTIN TIME 76.1 seconds 22.5-36.0 H (BEAKER) (test code = 760) BODY FLUID CULTURE + GRAM [id number] 09:10:00 Test Item Value Reference Range Interpretation Comments CULTURE (BEAKER) (test code No growth = 1095) GRAM STAIN RESULT (BEAKER) <1+ WBCs (test code = 1123) GRAM STAIN RESULT (BEAKER) No organisms seen (test code = 35503) CBC W/PLT COUNT & AUTO [id number] 07:23:00 Test Item Value Reference Range Interpretation [...] (BEAKER) (test code = 413) BASIC METABOLIC [id number] 07:05:00 Test Item Value Reference Range Interpretation [...] S NOT APPLICABLE FOR DIALYSIS PATIEN TS. [id number] 06:53:00 Test Item Value Reference Range Interpretation [...] heart valves.Ok to add onOk to add [id number] 06:53:00 Test Item Value Reference Range Interpretation Comments PARTIAL THROMBOPLASTIN TIME 70.3 seconds 22.5-36.0 H (BEAKER) (test code = 760) PROTHROMBIN TIME/[id number] 06:52:00 Test Item Value Reference Range Interpretation Comments PROTIME (BEAKER) (test code = 17.5 seconds 11.7-14.7 H 759) INR (BEAKER) (test code = 370) 1.4 <=5.9 RECOMMENDED COUMADIN/WARFARIN INR THERAPY RANGESSTANDARD DOSE: 2.0 - 3.0 Includes: PROPHYLAXIS forvenous thrombosis, systemic embolization; TREATMENT for venous thrombosis and/or pulmonary embolus.HIGH RISK: Target INR is 2.5-3.5 for patients with mechanical heart valves.PROTHROMBIN TIME/[id number] 06:51:00 Test Item Value Reference Range Interpretation Comments PROTIME (BEAKER) (test code = 17.7 seconds 11.7-14.7 H 759) INR (BEAKER) (test code = 370) 1.5 <=5.9 RECOMMENDED COUMADIN/WARFARIN INR THERAPY RANGESSTANDARD DOSE: 2.0 - 3.0 Includes: PROPHYLAXIS forvenous thrombosis, systemic embolization; TREATMENT for venous thrombosis and/or pulmonary embolus.HIGH RISK: Target INR is 2.5-3.5 for patients with mechanical heart valves.While on warfarin.[id number] 22:47:00 Test Item Value Reference Range Interpretation Comments PARTIAL THROMBOPLASTIN TIME 73.6 seconds 22.5-36.0 H (BEAKER) (test code = 760) [id number] 13:08:00 Test Item Value Reference Range Interpretation Comments PARTIAL THROMBOPLASTIN TIME 49.2 seconds 22.5-36.0 H (BEAKER) (test code = 760) BASIC METABOLIC [id number] 06:56:00 Test Item Value Reference Range Interpretation [...] S NOT APPLICABLE FOR DIALYSIS PATIEN TS. [id number] 06:56:00 Test Item Value Reference Range Interpretation Comments PARTIAL THROMBOPLASTIN TIME 67.5 seconds 22.5-36.0 H (BEAKER) (test code = 760) [id number] 06:45:00 Test Item Value Reference Range Interpretation [...] valves.Ok to add onOk to add onPROTHROMBIN TIME/[id number] 06:44:00 Test Item Value Reference Range Interpretation [...] /100 WBC 0-0 (test code = 413) [id number] 02:18:00 Test Item Value Reference Range Interpretation Comments PARTIAL THROMBOPLASTIN TIME 67.1 seconds 22.5-36.0 H (BEAKER) (test code = 760) [id number] 18:56:00 Test Item Value Reference Range Interpretation Comments PARTIAL THROMBOPLASTIN TIME 72.5 seconds 22.5-36.0 H (BEAKER) (test code = 760) POCT-GLUCOSE [id number] 13:08:00 Test Item Value Reference Range Interpretation Comments POC-GLUCOSE METER 121 mg/dL 70-110 H TESTED AT [facility] 67[address] ([facility]) (test code = [place] 1538) [address] [id number] 12:07:00 Test Item Value Reference Range Interpretation Comments PARTIAL THROMBOPLASTIN TIME 50.7 seconds 22.5-36.0 H (BEAKER) (test code = 760) Ok to add onPROTHROMBIN TIME/[id number] 12:05:00 Test Item Value Reference Range Interpretation [...] = 413) RAD, CHEST, 1 VIEW, NON [id number] 11:24:00Reason for exam:->pleural effusionShould this be performed at the bedside?->YesFINAL REPORT AP chest HISTORY: Pleural effusion COMPARISON: 08/01/2018 IMPRESS ION:Intact skeleton. Cardiomegaly. Moderate interstitial edema. Moderate right and small left effusions. No pneumothorax. Signed: Mandy Chairez MDReport Verified Date/Time: 08/02/2018 11:24:33 Reading Location: [place] [id number] Ortho Consult Reading Room BASIC METABOLIC [id number] 02:55:00 Test Item Value Reference Range Interpretation [...] S NOT APPLICABLE FOR DIALYSIS PATIEN TS. [id number] 02:39:00 Test Item Value Reference Range Interpretation Comments PARTIAL THROMBOPLASTIN TIME 51.6 seconds 22.5-36.0 H (BEAKER) (test code = 760) CBC W/PLT COUNT & AUTO [id number] 02:30:00 Test Item Value Reference Range Interpretation [...] = 2801) BODY FLUID CELL COUNT WITH [id number] 21:13:00 Test Item Value Reference Range Interpretation Comments APPEARANCE FLUID (BEAKER) (test Bloody Clear A code = 510) COLOR FLUID (BEAKER) (test code Sunil Colorless, Straw A = 511) RBC FLUID (BEAKER) (test code = 37030 /cu mm <=1 H 513) ADJUSTED WBC [...] Tube (test code = 2873) ALBUMIN, BODY [id number] 20:00:00 Test Item Value Reference Range Interpretation Comments ALBUMIN FLUID (BEAKER) (test code = 2.1 gm/dL 501) Reference Range: No Normals Assay performance has not been validated for this type of specimen.LACTATE DEHYDROGENASE (LDH), BODY [id number] 20:00:00 Test Item Value Reference Range Interpretation [...] of specimen.RAD, CHEST, PA OR AP, 1 [id number] 17:08:00Ultrasound Room 1Reason for exam:->s/p Right sided [...] Vail Verified Date/Time: 08/01/2018 17:08:13 Reading Location: [facility] Radiology Reading Room U/S, [id number] 17:03:00 Laterality?->RightReason for exam:->large pleural effusionFINAL REPORT HISTORY: Right pleural effusion Following informed written consent, the patient's right posterior chest wall was prepped and draped in the usual sterile manner. 2% lidocaine was given locally for anesthesia. No conscious sedation was administered. Vital signs were monitored and remained stable. Using ultrasound guidance and a 5 Albanian angiocatheter, access was gain ed to the [...] Seymour Verified Date/Time: 08/01/2018 17:03:15 Reading Location: [facility] P006J Ultrasound Reading Room RAD, CHEST, 1 VIEW, NON [id number] 12:40:00Reason for exam:->pleural effusion; shortness of breathShould [...] MDReport Verified Date/Time: 08/01/2018 12:40:42 Reading Location: [facility] Radiology Reading Room APTT 2018-08-01 11:33:00 Test Item Value Reference Range Interpretation Comments PARTIAL THROMBOPLASTIN TIME 118.1 seconds 22.5-36.0 H (BEAKER) (test code = 760) BASIC METABOLIC [id number] 02:07:00 Test Item Value Reference Range Interpretation [...] S NOT APPLICABLE FOR DIALYSIS PATIEN TS. [id number] 01:55:00 Test Item Value Reference Range Interpretation [...] is 2.5-3.5 for patients with mechanical heart valves.[id number] 01:55:00 Test Item Value Reference Range Interpretation Comments PARTIAL THROMBOPLASTIN TIME 96.8 seconds 22.5-36.0 H (BEAKER) (test code = 760) CBC W/PLT COUNT & AUTO [id number] 01:38:00 Test Item Value Reference Range Interpretation [...] 0-1 PERCENT (BEAKER) (test code = 2801) [id number] 18:58:00 Test Item Value Reference Range Interpretation Comments PARTIAL THROMBOPLASTIN TIME 61.7 seconds 22.5-36.0 H (BEAKER) (test code = 760) [id number] 09:22:00 Test Item Value Reference Range Interpretation Comments PARTIAL THROMBOPLASTIN TIME 61.5 seconds 22.5-36.0 H (BEAKER) (test code = 760) BASIC METABOLIC [id number] 02:14:00 Test Item Value Reference Range Interpretation [...] S NOT APPLICABLE FOR DIALYSIS PATIEN TS. [id number] 01:43:00 Test Item Value Reference Range Interpretation [...] is 2.5-3.5 for patients with mechanical heart valves.[id number] 01:43:00 Test Item Value Reference Range Interpretation Comments PARTIAL THROMBOPLASTIN TIME 62.7 seconds 22.5-36.0 H (BEAKER) (test code = 760) CBC W/PLT COUNT & AUTO [id number] 01:32:00 Test Item Value Reference Range Interpretation [...] 0-1 PERCENT (BEAKER) (test code = 2801) [id number] 18:38:00 Test Item Value Reference Range Interpretation Comments PARTIAL THROMBOPLASTIN TIME 38.9 seconds 22.5-36.0 H (BEAKER) (test code = 760) Prior to initiating heparinPLATELET [id number] 18:17:00 Test Item Value Reference Range Interpretation Comments PLATELET COUNT (BEAKER) (test 115 K/CU MM 150-450 L code = 756) RAD, CHEST, 2 [id number] 18:05:00Reason for exam:->sob and pleural effusionFINAL REPORT [...] Sykes MDReport Verified Date/Time: 07/30/2018 18:05:46Reading Location: [facility] C0[facility] Consult Reading Room C METABOLIC [id number] 05:26:00 Test Item Value Reference Range Interpretation [...] S NOT APPLICABLE FOR DIALYSIS PATIEN TS. [id number] 05:25:00 Test Item Value Reference Range Interpretation [...] 2.5-3.5 for patients with mechanical heart valves.PROTHROMBIN TIME/[id number] 05:24:00 Test Item Value Reference Range Interpretation [...] (test code = 2801) HEPATITIS B SURFACE [id number] 12:09:00 Test Item Value Reference Range Interpretation Comments HEPATITIS B SURFACE ANTIGEN (2) Nonreactive Nonreactive (BEAKER) (test code = 2585) POCT-GLUCOSE [id number] 07:50:00 Test Item Value Reference Range Interpretation Comments POC-GLUCOSE METER 93 mg/dL 70-110 TESTED AT [facility] 6720 (BEAKER) (test code = [place] [address] 1538) [id number] 04:59:00 Test Item Value Reference Range Interpretation [...] for patients with mechanical heart valves.BASIC METABOLIC [id number] 04:59:00 Test Item Value Reference Range Interpretation [...] PATIEN TS. CBC W/PLT COUNT & AUTO [id number] 04:51:00 Test Item Value Reference Range Interpretation [...] (test code = 2801) AFB CULTURE + [id number] 16:13:00 Test Item Value Reference Range Interpretation Comments CULTURE (BEAKER) (test No acid-fast bacilli code = 1095) isolated in 42 days AFB SMEAR (BEAKER) No acid fast bacilli (test code = 994) seen AFB CULTURE + [id number] 16:13:00 Test Item Value Reference Range Interpretation Comments CULTURE (BEAKER) (test No acid-fast bacilli code = 1095) isolated in 42 days AFB SMEAR (BEAKER) No acid fast bacilli (test code = 994) seen FUNGUS CULTURE + [id number] 07:13:00 Test Item Value Reference Range Interpretation Comments CULTURE (BEAKER) (test No fungus isolated in code = 1095) 28 days FUNGUS SMEAR (BEAKER) No fungi seen (test code = 1406) FUNGUS CULTURE + [id number] 07:13:00 Test Item Value Reference Range Interpretation Comments CULTURE (BEAKER) (test No fungus isolated in code = 1095) 28 days FUNGUS SMEAR (BEAKER) No fungi seen (test code = 1406) TISSUE [id number] 19:17:00Surgical Pathology Report Case: [id number] Authorizing Provider: Juliana Martinez MD Collected: 05/23/2018824 Ordering Location: [facility] Received: 05/23/2018 09 SERVICES Pathologist: Brigida Parks MD Specimen: Soft Tissue, Other, LEFT GROIN - TISSUE BIOPSY SKIN AND SOFT TISSUE,GROIN,LEFT, BIOPSY: - ABSCESSES, GRANULOMAS AND CHRONIC INFLAMMATION - NEGATIVE FOR DYSPLASIA OR MALIGNANCY - AFB AND GMS STAINS ARE NEGATIVE (SEE COMMENT) Signing Pathologist Direct Phone Line: [phone] signed by Brigida Parks MD on 06/02/2018 at 7:17 PMCorrelation with culture studies is recommended.[id number] abscess groinLeft groin tissue biopsyReceived fresh labeled "soft tissue, other", description "left groin tissue biopsy" are two dark-porter, wrinkled,hair- bearing strips of skin measuring 1.5 and 2.6 cm in length, 0.3 cm in diameter and excised to a depth of 0.3 cm.Sectioning reveals no discrete masses.The specimen is entirely submitted in cassettesA1. DB/ewPOCT-GLUCOSE [id number] 08:51:00 Test Item Value Reference Range Interpretation Comments POC-GLUCOSE METER 101 mg/dL 70-110 TESTED AT [facility] [address] ([facility]) (test code = [place] 1538) [address] CBC W/PLT COUNT & AUTO [id number] 06:01:00 Test Item Value Reference Range Interpretation [...] PERCENT (BEAKER) (test code = 2801) PROTHROMBIN TIME/[id number] 05:51:00 Test Item Value Reference Range Interpretation Comments PROTIME (BEAKER) (test code = 25.9 seconds 11.7-14.7 H 759) INR (BEAKER) (test code = 370) 2.4 <=5.9 RECOMMENDED COUMADIN/WARFARIN INR THERAPY RANGESSTANDARD DOSE: 2.0 - 3.0 Includes: PROPHYLAXIS forvenous thrombosis, systemic embolization; TREATMENT for venous thrombosis and/or pulmonary embolus.HIGH RISK: Target INR is 2.5-3.5 for patients with mechanical heart valves.BASIC METABOLIC [id number] 05:46:00 Test Item Value Reference Range Interpretation [...] 358) GLUCOSE RANDOM 110 mg/dL 70-105 H ([facility]) (test code = 652) CALCIUM ([facility]) 9.0 mg/dL 8.4-10.2 (test code = 697) EGFR ([facility]) (test 14 mL/min/1.73 ESTIMA JAYLA GFR IS code = 1092) sq m NOT ACCURATE CREATININE CLEARANCE IN PREDICTING GLOMERULAR FILTRATION RATE . ESTIMATED GFR I S NOT APPLICABLE FOR DIALYSIS PATIEN TS. POCT-GLUCOSE [id number] 20:34:00 Test Item Value Reference Range Interpretation Comments POC-GLUCOSE METER 261 mg/dL 70-110 H TESTED AT [place] [address] ([facility]) (test code = [facility] 1538) [address] POCT-GLUCOSE [id number] 18:12:00 Test Item Value Reference Range Interpretation Comments POC-GLUCOSE METER 139 mg/dL 70-110 H TESTED AT [place] [address] ([facility]) (test code = [facility] 1538) [address] POCT-GLUCOSE [id number] 11:51:00 Test Item Value Reference Range Interpretation Comments POC-GLUCOSE METER 147 mg/dL 70-110 H TESTED AT [place] [address] ([facility]) (test code = [facility] 1538) [address] POCT-GLUCOSE [id number] 08:42:00 Test Item Value Reference Range Interpretation Comments POC-GLUCOSE METER 104 mg/dL 70-110 TESTED AT [place] [address] ([facility]) (test code = [facility] 1538) [address] CBC W/PLT COUNT & AUTO [id number] 06:56:00 Test Item Value Reference Range Interpretation Comments WHITE BLOOD CELL COUNT ([facility]) 8.0 K/ L 3.5-10.5 (test code = 775) RED BLOOD CELL COUNT ([facility]) 3.40 M/ L 4.63-6.08 L (test code = 761) HEMOGLOBIN ([facility]) (test code = 10.2 GM/DL 13.7-17.5 L 410) HEMATOCRIT ([facility]) (test code = 32.0 % 40.1-51.0 L 411) MEAN CORPUSCULAR VOLUME ([facility]) 94.1 fL 79.0-92.2 H (test code = [...] (BEAKER) (test code = 2801) BASIC METABOLIC [id number] 06:49:00 Test Item Value Reference Range Interpretation [...] NOT APPLICABLE FOR DIALYSIS PATIEN TS. PROTHROMBIN [id number] 06:46:00 Test Item Value Reference Range Interpretation Comments PROTIME ([employer]) (test code = 26.9 seconds 11.7-14.7 H 759) INR (BEAKER) (test code = 370) 2.5 <=5.9 RECOMMENDED COUMADIN/WARFARIN INR THERAPY RANGESSTANDARD DOSE: 2.0 - 3.0 Includes: PROPHYLAXIS forvenous thrombosis, systemic embolization; TREATMENT for venous thrombosis and/or pulmonary embolus.HIGH RISK: Target INR is 2.5-3.5 for patients with mechanical heart valves.ANAEROBIC [id number] 00:38:00 Test Item Value Reference Range Interpretation Comments CULTURE ([facility]) (test No anaerobes isolated code = 1095) ANAEROBIC [id number] 00:38:00 Test Item Value Reference Range Interpretation Comments CULTURE ([facility]) (test No anaerobes isolated code = 1095) POCT-GLUCOSE [id number] 20:43:00 Test Item Value Reference Range Interpretation Comments POC-GLUCOSE METER 124 mg/dL 70-110 H TESTED AT [place] [address] ([facility]) (test code = [facility] 1538) [address] POCT-GLUCOSE [id number] 17:17:00 Test Item Value Reference Range Interpretation Comments POC-GLUCOSE METER 190 mg/dL 70-110 H TESTED AT [place] [address] ([employer]) (test code = [facility] Humberto [facility] 1538) [address] POCT-GLUCOSE [id number] 11:54:00 Test Item Value Reference Range Interpretation Comments POC-GLUCOSE METER 195 mg/dL 70-110 H TESTED AT [place] [address] ([facility]) (test code = [facility] Humberto [facility] 1538) [address] C. DIFFICILE GDH [id number] 11:16:00 Test Item Value Reference Range Interpretation Comments CDT TOXIN (test code Negative Negative = [id number]) CDT GDH ANTIGEN (test Negative Negative No ind ication of code = [id number]) Clostridi um difficile infection and n o colonization. Discontinue ent kenrick isolation and t herapy. Testing performed by [employer]dex Rapid Cassette Assay. For GDH, published sensitivity of the assay is 98.7% compared to cytotoxicity testing. For Toxin AB, published sensitivity is 87.8% and specificity 99.4% compared to cytotoxicity testing.Verification of kit performance was done by the [facility] Microbiology Lab prior to clinical use.SURGICALLY OBTAINED CULTURE + GRAM [id number] 09:22:00 Test Item Value Reference Interpretation Comments [...] No organisms seen (BEAKER) (test code = 895364) SURGICALLY OBTAINED CULTURE + GRAM [id number] 09:20:00 Test Item Value Reference Range Interpretation Comments CULTURE (BEAKER) (test code No growth = 1095) GRAM STAIN RESULT (BEAKER) 4+ WBCs (test code = 1123) GRAM STAIN RESULT (BEAKER) No organisms seen (test code = 90377) POCT-GLUCOSE [id number] 08:21:00 Test Item Value Reference Range Interpretation Comments POC-GLUCOSE METER 101 mg/dL 70-110 TESTED AT [facility] 6720 (BEAKER) (test code = [facility] [place] 1538) [address] BASIC METABOLIC [id number] 07:57:00 Test Item Value Reference Range Interpretation [...] NOT APPLICABLE FOR DIALYSIS PATIEN TS. PROTHROMBIN [id number] 06:36:00 Test Item Value Reference Range Interpretation [...] PERCENT (BEAKER) (test code = 2801) POCT-GLUCOSE [id number] 21:40:00 Test Item Value Reference Range Interpretation Comments POC-GLUCOSE METER 176 mg/dL 70-110 H TESTED AT [facility] 6720 [facility] (test code = [place] [place] 1538) [address] POCT-GLUCOSE [id number] 16:07:00 Test Item Value Reference Range Interpretation Comments POC-GLUCOSE METER 120 mg/dL 70-110 H TESTED AT [facility] 6720 [facility] (test code = [facility] [place] 1538) [address] POCT-GLUCOSE [id number] 08:31:00 Test Item Value Reference Range Interpretation Comments POC-GLUCOSE METER 119 mg/dL 70-110 H TESTED AT [facility] 6720 (BEAKER) (test code = [place] 1538) [address] BASIC METABOLIC [id number] 08:19:00 Test Item Value Reference Range Interpretation [...] APPLICABLE FOR DIALYSIS PATIEN TS. VANCOMYCIN LEVEL, [id number] 08:16:00 Test Item Value Reference Range Interpretation Comments VANCOMYCIN RANDOM (BEAKER) (test 17.6 ug/mL code = 523) Reference Range: No NormalsPROTHROMBIN [id number] 07:21:00 Test Item Value Reference Range Interpretation [...] PERCENT (BEAKER) (test code = 2801) BLOOD [id number] 06:00:00 Test Item Value Reference Range Interpretation Comments CULTURE (BEAKER) (test No growth in 5 days code = 1095) BLOOD [id number] 00:00:00 Test Item Value Reference Range Interpretation Comments CULTURE (BEAKER) (test No growth in 5 days code = 1095) POCT-GLUCOSE [id number] 22:05:00 Test Item Value Reference Range Interpretation Comments POC-GLUCOSE METER 169 mg/dL 70-110 H TESTED AT [place] [address] (BEAKER) (test code = [facility] 1538) [address] POCT-GLUCOSE [id number] 18:20:00 Test Item Value Reference Range Interpretation Comments POC-GLUCOSE METER 110 mg/dL 70-110 TESTED AT [place] [address] (BEAKER) (test code = [facility] 1538) [address] POCT-GLUCOSE [id number] 17:17:00 Test Item Value Reference Range Interpretation Comments POC-GLUCOSE METER 99 mg/dL 70-110 TESTED AT [place] [address] (BEAKER) (test code = [facility] [address] 1538) SPIN/CONCENTRATION [id number] 14:49:00 Test Item Value Reference Range Interpretation Comments CONCENTRATION CHARGED (BEAKER) (test Done code = 2657) SPIN/CONCENTRATION [id number] 14:49:00 Test Item Value Reference Range Interpretation Comments CONCENTRATION CHARGED (BEAKER) (test Done code = 2657) POCT-GLUCOSE [id number] 12:13:00 Test Item Value Reference Range Interpretation Comments POC-GLUCOSE METER 188 mg/dL 70-110 H TESTED AT [place] [address] (BEAKER) (test code = [facility] 1538) [address] BASIC METABOLIC [id number] 09:56:00 Test Item Value Reference Range Interpretation [...] NOT APPLICABLE FOR DIALYSIS PATIEN TS. POCT-GLUCOSE [id number] 07:45:00 Test Item Value Reference Range Interpretation Comments POC-GLUCOSE METER 108 mg/dL 70-110 TESTED AT [facility] 67[address] ([facility]) (test code = [place] 1538) [address] CBC W/PLT COUNT & AUTO [id number] 07:00:00 Test Item Value Reference Range Interpretation [...] PERCENT (BEAKER) (test code = 2801) PROTHROMBIN [id number] 06:47:00 Test Item Value Reference Range Interpretation Comments PROTIME (BEAKER) (test code = 20.7 seconds 11.7-14.7 H 759) INR (BEAKER) (test code = 370) 1.8 <=5.9 RECOMMENDED COUMADIN/WARFARIN INR THERAPY RANGESSTANDARD DOSE: 2.0 - 3.0 Includes: PROPHYLAXIS forvenous thrombosis, systemic embolization; TREATMENT for venous thrombosis and/or pulmonary embolus.HIGH RISK: Target INR is 2.5-3.5 for patients with mechanical heart valves.POCT-GLUCOSE [id number] 20:42:00 Test Item Value Reference Range Interpretation Comments POC-GLUCOSE METER 134 mg/dL 70-110 H TESTED AT [facility] [address] ([facility]) (test code = [facility] 1538) [address] POCT-GLUCOSE [id number] 13:29:00 Test Item Value Reference Range Interpretation Comments POC-GLUCOSE METER 209 mg/dL 70-110 H TESTED AT [facility] [address] ([facility]) (test code = [facility] 1538) [address] POCT-GLUCOSE [id number] 08:53:00 Test Item Value Reference Range Interpretation Comments POC-GLUCOSE METER 103 mg/dL 70-110 TESTED AT [facility] 6720 (BEAKER) (test code = [facility] 1538) [address] BASIC METABOLIC [id number] 07:47:00 Test Item Value Reference Range Interpretation [...] DIALYSIS PATIEN TS. WOUND CULTURE + GRAM [id number] 07:44:00 Test Item Value Reference Range Interpretation Comments CULTURE (BEAKER) (test code No growth = 1095) GRAM STAIN RESULT (BEAKER) No WBCs (test code = 1123) GRAM STAIN RESULT (BEAKER) No organisms seen (test code = 61501) [id number] 07:38:00 Test Item Value Reference Range Interpretation Comments PHOSPHORUS (BEAKER) (test code = 3.2 mg/dL 2.3-4.7 604) CBC W/PLT COUNT & AUTO [id number] 06:35:00 Test Item Value Reference Range Interpretation [...] PERCENT (BEAKER) (test code = 2801) PROTHROMBIN [id number] 06:32:00 Test Item Value Reference Range Interpretation Comments PROTIME (BEAKER) (test code = 23.2 seconds 11.7-14.7 H 759) INR (BEAKER) (test code = 370) 2.1 <=5.9 RECOMMENDED COUMADIN/WARFARIN INR THERAPY RANGESSTANDARD DOSE: 2.0 - 3.0 Includes: PROPHYLAXIS forvenous thrombosis, systemic embolization; TREATMENT for venous thrombosis and/or pulmonary embolus.HIGH RISK: Target INR is 2.5-3.5 for patients with mechanical heart valves.POCT-GLUCOSE [id number] 21:21:00 Test Item Value Reference Range Interpretation Comments POC-GLUCOSE METER 177 mg/dL 70-110 H TESTED AT [place] [address] ([facility]) (test code = [facility] 1538) [address] POCT-GLUCOSE [id number] 17:53:00 Test Item Value Reference Range Interpretation Comments POC-GLUCOSE METER 89 mg/dL 70-110 TESTED AT [place] [address] ([facility]) (test code = [facility] [address] 1538) IRON, TIBC, % SAT. (WITHOUT FERRITIN)2018-05-22 17:45:00 Test Item Value Reference Range Interpretation Comments IRON (BEAKER) (test code = 547) 63 ug/dL 40-160 TOTAL IRON BINDING CAPACITY 203 ug/dL 250-450 L ([facility]) (test code = 769) IRON % SATURATION (2) (BEAKER) 31 % 20-55 (test code = 2590) [id number] 16:07:00 Test Item Value Reference Range Interpretation Comments PHOSPHORUS (BEAKER) (test code = 5.4 mg/dL 2.3-4.7 H 604) POCT-GLUCOSE [id number] 12:41:00 Test Item Value Reference Range Interpretation Comments POC-GLUCOSE METER 110 mg/dL 70-110 TESTED AT [place] [address] ([facility]) (test code = [facility] 1538) [address] POCT-GLUCOSE [id number] 07:00:00 Test Item Value Reference Range Interpretation Comments POC-GLUCOSE METER 159 mg/dL 70-110 H TESTED AT [place] [address] ([facility]) (test code = [facility] 1538) [address] BASIC METABOLIC [id number] 05:19:00 Test Item Value Reference Range Interpretation [...] S NOT APPLICABLE FOR DIALYSIS PATIEN TS. [id number] 05:18:00 Test Item Value Reference Range Interpretation Comments MAGNESIUM (BEAKER) (test code = 1.9 mg/dL 1.6-2.6 627) PROTHROMBIN [id number] 05:03:00 Test Item Value Reference Range Interpretation [...] H PERCENT (BEAKER) (test code = 2800) POCT-GLUCOSE [id number] 23:35:00 Test Item Value Reference Range Interpretation Comments POC-GLUCOSE METER 190 mg/dL 70-110 H TESTED AT [facility] 6720 (BEAKER) (test code = [place] 1538) [address] POCT-GLUCOSE [id number] 17:16:00 Test Item Value Reference Range Interpretation Comments POC-GLUCOSE METER 122 mg/dL 70-110 H TESTED AT [facility] 67 ([facility]) (test code = FOSTER Paul [place] 1538) [address] U/S, TESTICULAR (SCROTUM)2018-05-21 14:53:00Reason for exam:->testicular swellingFINAL [...] MDReport Verified Date/Time: 05/21/2018 14:53:00 Reading Location: [address] UltrasoundReading Room POCT- GLUCOSE [id number] 11:22:00 Test Item Value Reference Range Interpretation Comments POC-GLUCOSE METER 144 mg/dL 70-110 H TESTED AT [facility] 6720 ([employer]) (test code = FOSTER Paul [facility] 1538) [address] POCT-GLUCOSE [id number] 07:05:00 Test Item Value Reference Range Interpretation Comments POC-GLUCOSE METER 171 mg/dL 70-110 H TESTED AT [facility] 6720 (BEAKER) (test code = [facility] [place] 1538) [address] BASIC METABOLIC [id number] 06:19:00 Test Item Value Reference Range Interpretation [...] S NOT APPLICABLE FOR DIALYSIS PATIEN TS. [id number] 06:04:00 Test Item Value Reference Range Interpretation Comments MAGNESIUM (BEAKER) (test code = 1.9 mg/dL 1.6-2.6 627) PROTHROMBIN TIME/[id number] 05:31:00 Test Item Value Reference Range Interpretation [...] 417) IMMATURE GRANULOCYTES-RELATIVE 1 % 0-1 PERCENT ([facility]) (test code = 2801) POCT-GLUCOSE [id number] 21:29:00 Test Item Value Reference Range Interpretation Comments POC-GLUCOSE METER 156 mg/dL 70-110 H TESTED AT [place] [address] ([facility]) (test code = F[facility] Paul [facility] 1538) [address] POCT-GLUCOSE [id number] 18:14:00 Test Item Value Reference Range Interpretation Comments POC-GLUCOSE METER 93 mg/dL 70-110 TESTED AT [place] [address] ([facility]) (test code = F[facility] Paul [facility] [address] 1538) PROTHROMBIN [id number] 13:26:00 Test Item Value Reference Range Interpretation Comments PROTIME ([facility]) (test code = 42.0 seconds 11.7-14.7 H 759) INR ([facility]) (test code = 370) 4.4 <=5.9 RECOMMENDED COUMADIN/WARFARIN INR THERAPY RANGESSTANDARD DOSE: 2.0 - 3.0 Includes: PROPHYLAXIS forvenous thrombosis, systemic embolization; TREATMENT for venous thrombosis and/or pulmonary embolus.HIGH RISK: Target INR is 2.5-3.5 for patients with mechanical heart valves.LACTIC ACID, VENOUS, WHOLE BLOOD 2018-05-20 13:18:00 Test Item Value Reference Range Interpretation Comments LACTATE BLOOD VENOUS (2) ([facility]) 0.8 mmol/L 0.5-2.2 (test code = 2872) Effective 01/04/2016: Units/Reference Range ChangeNew: 0.5-2.2 mmol/L Previous: 5-20 mg/dLPOCT-GLUCOSE [id number] 12:04:00 Test Item Value Reference Range Interpretation Comments POC-GLUCOSE METER 111 mg/dL 70-110 H TESTED AT [place] [address] ([facility]) (test code = [facility] Humberto [facility] 1538) [address] CD4 T CELL [id number] 12:04:00 Test Item Value Reference Range Interpretation Comments CD4/CD8 RATIO FC ([facility]) (test code = 0.76 0.70-3.23 4) HEPATITIS B SURFACE [id number] 11:32:00 Test Item Value Reference Range Interpretation Comments HEPATITIS B SURFACE ANTIGEN (2) Nonreactive Nonreactive (BEAKER) (test code = 2585) VANCOMYCIN LEVEL, [id number] 11:10:00 Test Item Value Reference Range Interpretation Comments VANCOMYCIN RANDOM (BEAKER) (test 20.7 ug/mL code = 523) Reference Range: No NormalsBASIC METABOLIC [id number] 09:19:00 Test Item Value Reference Range Interpretation [...] S NOT APPLICABLE FOR DIALYSIS PATIEN TS. [id number] 09:16:00 Test Item Value Reference Range Interpretation Comments MAGNESIUM (BEAKER) (test code = 2.1 mg/dL 1.6-2.6 627) RAD, CHEST, 1 VIEW, NON [id number] 07:56:00Reason for exam:->pleural effusion seen on outside hospital imagingShould this be performed at the bedside?->YesFINAL REPORT Chest one view compared to February 23 Discussion: Small effusions are similar. Replaced cardiac valve and atrial appendage clip noted. No pneumothorax. Unchanged cardiac pulmonary appearance. Signed: Rhea Colindreseport Verified Date/Time: 05/20/2018 07:56:50 Reading Location: [facility] Radiology Reading Room POCT-GLUCOSE [id number] 07:32:00 Test Item Value Reference Range Interpretation Comments POC-GLUCOSE METER 105 mg/dL 70-110 TESTED AT [facility] 6720 (BEAKER) (test code = [place] 1538) [address] CBC W/PLT COUNT & AUTO [id number] 07:01:00 Test Item Value Reference Range Interpretation [...] (BEAKER) (test code = 2801) VANCOMYCIN LEVEL, [id number] 22:39:00 Test Item Value Reference Range Interpretation Comments VANCOMYCIN RANDOM (BEAKER) (test 22.0 ug/mL code = 523) Reference Range: No NormalsCOMPREHENSIVE METABOLIC [id number] 22:39:00 Test Item Value Reference Range Interpretation [...] S NOT APPLICABLE FOR DIALYSIS PATIEN TS. [id number] 22:38:00 Test Item Value Reference Range Interpretation Comments PHOSPHORUS (BEAKER) (test code = 4.5 mg/dL 2.3-4.7 604) [id number] 22:38:00 Test Item Value Reference Range Interpretation Comments MAGNESIUM (BEAKER) (test code = 2.0 mg/dL 1.6-2.6 627) [id number] 22:29:00 Test Item Value Reference Range Interpretation Comments PARTIAL THROMBOPLASTIN TIME 45.0 seconds 22.5-36.0 H (BEAKER) (test code = 760) PROTHROMBIN TIME/[id number] 22:28:00 Test Item Value Reference Range Interpretation Comments PROTIME (BEAKER) (test code = 48.1 seconds 11.7-14.7 H 759) INR (BEAKER) (test code = 370) 5.2 <=5.9 RECOMMENDED COUMADIN/WARFARIN INR THERAPY RANGESSTANDARD DOSE: 2.0 - 3.0 Includes: PROPHYLAXIS forvenous thrombosis, systemic embolization; TREATMENT for venous thrombosis and/or pulmonary embolus.HIGH RISK: Target INR is 2.5-3.5 for patients with mechanical heart valves.POCT-GLUCOSE [id number] 21:38:00 Test Item Value Reference Range Interpretation Comments POC-GLUCOSE METER 105 mg/dL 70-110 TESTED AT [facility] 6720 [facility] (test code = [place] Paul [place] 1538) [address] XR Ankle Complete 3+ Views [id number] 22:30:07Patient: CALEB LUGO Date/Time05/12/2018 22:24 CDTReason for [...] Signature): 05/12/2018 10:30 pmXR Chest 1 View Frontal 2018-05-12 09:48:17Patient: CALEB LUGO Date/Time05/12/2018 09:30 CDTReason for [...] FSigned (Electronic Signature): 05/12/2018 9:48 amBASIC METABOLIC [id number] 11:15:00 Test Item Value Reference Range Interpretation [...] (BEAKER) (test code = 700) BASIC METABOLIC [id number] 02:55:00 Test Item Value Reference Range Interpretation [...] H (BEAKER) (test code = 700) TROPONIN [id number] 02:30:00 Test Item Value Reference Range Interpretation [...] failure, acidosis, acute neurological disease, and persistent tachyarrhythmia.[id number] 02:21:00 Test Item Value Reference Range Interpretation Comments MAGNESIUM (BEAKER) (test code = 1.8 mg/dL 1.6-2.6 627) CBC W/PLT COUNT & AUTO [id number] 00:24:00 Test Item Value Reference Range Interpretation [...] 0-1 PERCENT (BEAKER) (test code = 2801) [id number] 00:01:00 Test Item Value Reference Range Interpretation [...] mechanical heart valves.RAD, CHEST, 1 VIEW, NON [id number] 23:39:00Reason for exam:->chest painShould this be performed [...] for fluid overload-heart failure. Signed: Josiah Wan MDReport Verified Date/Time: 02/23/2018 23:39:58 Reading Location: [address] Reading Room POCT-GLUCOSE [id number] 19:47:00 Test Item Value Reference Range Interpretation Comments POC-GLUCOSE METER 94 mg/dL 70-110 TESTED AT [facility] [address] ([facility]) (test code = FOSTER Paul [facility] [address] 1538) POCT-GLUCOSE [id number] 17:07:00 Test Item Value Reference Range Interpretation Comments POC-GLUCOSE METER 176 mg/dL 70-110 H TESTED AT [place] [address] ([facility]) (test code = FOSTER Paul [facility] 1538) [address] POCT-GLUCOSE [id number] 12:31:00 Test Item Value Reference Range Interpretation Comments POC-GLUCOSE METER 84 mg/dL 70-110 TESTED AT [place] [address] ([facility]) (test code = FOSTER Paul [facility] [address] 1538) [id number] 10:40:00 Test Item Value Reference Range Interpretation Comments PARTIAL THROMBOPLASTIN TIME 88.5 seconds 22.5-36.0 H ([facility]) (test code = 760) OCCULT BLOOD, [id number] 09:36:00 Test Item Value Reference Range Interpretation Comments FECAL OCCULT BLOOD ([facility]) (test Negative Negative code = 618) POCT-GLUCOSE [id number] 08:51:00 Test Item Value Reference Range Interpretation Comments POC-GLUCOSE METER 223 mg/dL 70-110 H TESTED AT [place] [address] ([facility]) (test code = [facility] Humberto [facility] 1538) [address] [id number] 04:14:00 Test Item Value Reference Range Interpretation Comments PARTIAL THROMBOPLASTIN TIME 80.3 seconds 22.5-36.0 H ([facility]) (test code = 760) While on warfarin.PROTHROMBIN TIME/[id number] 04:13:00 Test Item Value Reference Range Interpretation Comments PROTIME ([facility]) (test code = 23.8 seconds 11.7-14.7 H 759) INR ([facility]) (test code = 370) 2.1 <=5.9 RECOMMENDED COUMADIN/WARFARIN INR THERAPY RANGESSTANDARD DOSE: 2.0 - 3.0 Includes: PROPHYLAXIS forvenous thrombosis, systemic embolization; TREATMENT for venous thrombosis and/or pulmonary embolus.HIGH RISK: Target INR is 2.5-3.5 for patients with mechanical heart valves.While on warfarin.POCT-GLUCOSE METER 2018-02-02 21:56:00 Test Item Value Reference Range Interpretation Comments POC-GLUCOSE METER 206 mg/dL 70-110 H TESTED AT [place] [address] ([facility]) (test code = [place] 1538) [address] [id number] 19:50:00 Test Item Value Reference Range Interpretation Comments PARTIAL THROMBOPLASTIN TIME 59.7 seconds 22.5-36.0 H (BEAKER) (test code = 760) POCT-GLUCOSE [id number] 17:00:00 Test Item Value Reference Range Interpretation Comments POC-GLUCOSE METER 183 mg/dL 70-110 H TESTED AT [facility] [address] ([facility]) (test code = [place] 1538) [address] [id number] 12:45:00 Test Item Value Reference Range Interpretation Comments PARTIAL THROMBOPLASTIN TIME 89.5 seconds 22.5-36.0 H (BEAKER) (test code = 760) CBC W/PLT COUNT & AUTO [id number] 12:04:00 Test Item Value Reference Range Interpretation [...] WBC 0-0 (test code = 413) POCT-GLUCOSE [id number] 11:54:00 Test Item Value Reference Range Interpretation Comments POC-GLUCOSE METER 124 mg/dL 70-110 H TESTED AT [facility] 6720 (BEAKER) (test code = FOSTER Paul [place] 1538) [address] POCT-GLUCOSE [id number] 07:48:00 Test Item Value Reference Range Interpretation Comments POC-GLUCOSE METER 178 mg/dL 70-110 H TESTED AT [facility] 6720 (BEAKER) (test code = FOSTER Paul [place] 1538) [address] BASIC METABOLIC [id number] 05:15:00 Test Item Value Reference Range Interpretation [...] S NOT APPLICABLE FOR DIALYSIS PATIEN TS. [id number] 04:51:00 Test Item Value Reference Range Interpretation Comments MAGNESIUM (BEAKER) (test code = 1.8 mg/dL 1.6-2.6 627) [id number] 04:36:00 Test Item Value Reference Range Interpretation Comments PARTIAL THROMBOPLASTIN TIME 91.9 seconds 22.5-36.0 H (BEAKER) (test code = 760) While on warfarin.PROTHROMBIN [id number] 04:34:00 Test Item Value Reference Range Interpretation [...] METER 126 mg/dL 70-110 H TESTED AT [place] [address] ([facility]) (test code = FOSTER Paul [facility] 1538) [id number] 21:23:00 Test Item Value Reference Range Interpretation Comments PARTIAL THROMBOPLASTIN TIME 84.1 seconds 22.5-36.0 H ([facility]) (test code = 760) POCT-GLUCOSE [id number] 16:57:00 Test Item Value Reference Range Interpretation Comments POC-GLUCOSE METER 156 mg/dL 70-110 H TESTED AT [place] [address] ([facility]) (test code = FOSTER Paul [place] 1538) [id number] 14:11:00 Test Item Value Reference Range Interpretation Comments PARTIAL THROMBOPLASTIN TIME 96.5 seconds 22.5-36.0 H ([facility]) (test code = 760) POCT-GLUCOSE [id number] 08:24:00 Test Item Value Reference Range Interpretation Comments POC-GLUCOSE METER 169 mg/dL 70-110 H TESTED AT [place] [address] ([facility]) (test code = FOSTER Paul [place] 1538) [address] POCT-GLUCOSE [id number] 06:49:00 Test Item Value Reference Range Interpretation Comments POC-GLUCOSE METER 172 mg/dL 70-110 H TESTED AT [place] [address] ([facility]) (test code = [employer] [employer] [place] 1538) [address] [id number] 04:59:00 Test Item Value Reference Range Interpretation Comments PARTIAL THROMBOPLASTIN TIME 64.7 seconds 22.5-36.0 H ([facility]) (test code = 760) While on warfarin.PROTHROMBIN [id number] 04:57:00 Test Item Value Reference Range Interpretation Comments PROTIME ([facility]) (test code = 17.5 seconds 11.7-14.7 H 759) INR ([facility]) (test code = 370) 1.4 <=5.9 RECOMMENDED COUMADIN/WARFARIN INR THERAPY RANGESSTANDARD DOSE: 2.0 - 3.0 Includes: PROPHYLAXIS forvenous thrombosis, systemic embolization; TREATMENT for venous thrombosis and/or pulmonary embolus.HIGH RISK: Target INR is 2.5-3.5 for patients with mechanical heart valves.While on warfarin.[id number] 21:55:00 Test Item Value Reference Range Interpretation Comments PARTIAL THROMBOPLASTIN TIME 68.8 seconds 22.5-36.0 H ([facility]) (test code = 760) [id number] 13:54:00 Test Item Value Reference Range Interpretation Comments PARTIAL THROMBOPLASTIN TIME 51.7 seconds 22.5-36.0 H ([facility]) (test code = 760) POCT-GLUCOSE [id number] 11:56:00 Test Item Value Reference Range Interpretation Comments POC-GLUCOSE METER 101 mg/dL 70-110 TESTED AT [place] [address] ([facility]) (test code = [facility] 1538) [address] POCT-GLUCOSE [id number] 07:58:00 Test Item Value Reference Range Interpretation Comments POC-GLUCOSE METER 111 mg/dL 70-110 H TESTED AT [place] [address] ([facility]) (test code = [facility] 1538) [address] BASIC METABOLIC [id number] 05:35:00 Test Item Value Reference Range Interpretation [...] S NOT APPLICABLE FOR DIALYSIS PATIEN TS. [id number] 05:34:00 Test Item Value Reference Range Interpretation Comments PHOSPHORUS (BEAKER) (test code = 4.2 mg/dL 2.3-4.7 604) [id number] 05:34:00 Test Item Value Reference Range Interpretation Comments MAGNESIUM (BEAKER) (test code = 1.7 mg/dL 1.6-2.6 627) PROTHROMBIN [id number] 05:24:00 Test Item Value Reference Range Interpretation Comments PROTIME (BEAKER) (test code = 18.8 seconds 11.7-14.7 H 759) INR (BEAKER) (test code = 370) 1.6 <=5.9 RECOMMENDED COUMADIN/WARFARIN INR THERAPY RANGESSTANDARD DOSE: 2.0 - 3.0 Includes: PROPHYLAXIS forvenous thrombosis, systemic embolization; TREATMENT for venous thrombosis and/or pulmonary embolus.HIGH RISK: Target INR is 2.5-3.5 for patients with mechanical heart valves.[id number] 05:05:00 Test Item Value Reference Range Interpretation Comments PARTIAL THROMBOPLASTIN TIME 96.6 seconds 22.5-36.0 H (BEAKER) (test code = 760) CBC W/PLT COUNT & AUTO [id number] 04:54:00 Test Item Value Reference Range Interpretation [...] (BEAKER) (test code = 2801) OCCULT BLOOD, [id number] 22:44:00 Test Item Value Reference Range Interpretation Comments FECAL OCCULT BLOOD (BEAKER) (test Positive Negative A code = 618) [id number] 21:14:00 Test Item Value Reference Range Interpretation Comments PARTIAL THROMBOPLASTIN TIME 69.1 seconds 22.5-36.0 H (BEAKER) (test code = 760) POCT-GLUCOSE [id number] 20:49:00 Test Item Value Reference Range Interpretation Comments POC-GLUCOSE METER 160 mg/dL 70-110 H TESTED AT [facility] 6720 (BEAKER) (test code = [place] 1538) [address] POCT-GLUCOSE [id number] 17:59:00 Test Item Value Reference Range Interpretation Comments POC-GLUCOSE METER 128 mg/dL 70-110 H TESTED AT [facility] [address] ([facility]) (test code = [facility] 1538) [address] POCT-GLUCOSE [id number] 13:31:00 Test Item Value Reference Range Interpretation Comments POC-GLUCOSE METER 70 mg/dL 70-110 TESTED AT [place] [address] ([facility]) (test code = [facility] Humberto [facility] [address] 1538) [id number] 13:16:00 Test Item Value Reference Range Interpretation Comments PARTIAL THROMBOPLASTIN TIME 78.3 seconds 22.5-36.0 H (BEAKER) (test code = 760) POCT-GLUCOSE [id number] 12:47:00 Test Item Value Reference Range Interpretation Comments POC-GLUCOSE METER 49 mg/dL 70-110 L TESTED AT [place] [address] ([facility]) (test code = [facility] [address] 1538) POCT-GLUCOSE [id number] 09:05:00 Test Item Value Reference Range Interpretation Comments POC-GLUCOSE METER 306 mg/dL 70-110 H TESTED AT [place] [address] ([facility]) (test code = [facility] 1538) [address] OCCULT BLOOD, [id number] 06:52:00 Test Item Value Reference Range Interpretation Comments FECAL OCCULT BLOOD (BEAKER) (test Positive Negative A code = 618) [id number] 05:42:00 Test Item Value Reference Range Interpretation [...] 20-55 (test code = 2590) BASIC METABOLIC [id number] 03:53:00 Test Item Value Reference Range Interpretation [...] S NOT APPLICABLE FOR DIALYSIS PATIEN TS. [id number] 03:51:00 Test Item Value Reference Range Interpretation Comments PHOSPHORUS (BEAKER) (test code = 3.2 mg/dL 2.3-4.7 604) [id number] 03:51:00 Test Item Value Reference Range Interpretation Comments PARTIAL THROMBOPLASTIN TIME 122.0 seconds 22.5-36.0 H (BEAKER) (test code = 760) While on warfarin.PROTHROMBIN TIME/[id number] 03:48:00 Test Item Value Reference Range Interpretation Comments PROTIME (BEAKER) (test code = 16.3 seconds 11.7-14.7 H 759) INR (BEAKER) (test code = 370) 1.3 <=5.9 RECOMMENDED COUMADIN/WARFARIN INR THERAPY RANGESSTANDARD DOSE: 2.0 - 3.0 Includes: PROPHYLAXIS forvenous thrombosis, systemic embolization; TREATMENT for venous thrombosis and/or pulmonary embolus.HIGH RISK: Target INR is 2.5-3.5 for patients with mechanical heart valves.While on warfarin.[id number] 03:44:00 Test Item Value Reference Range Interpretation Comments MAGNESIUM (BEAKER) (test code = 1.7 mg/dL 1.6-2.6 627) CBC W/PLT COUNT & AUTO [id number] 03:38:00 Test Item Value Reference Range Interpretation [...] 417) IMMATURE GRANULOCYTES-RELATIVE 1 % 0-1 PERCENT ([facility]) (test code = 2801) POCT-GLUCOSE [id number] 23:35:00 Test Item Value Reference Range Interpretation Comments POC-GLUCOSE METER 149 mg/dL 70-110 H TESTED AT [place] [address] ([facility]) (test code = [place] 1538) [address] [id number] 20:08:00 Test Item Value Reference Range Interpretation Comments PARTIAL THROMBOPLASTIN TIME 55.6 seconds 22.5-36.0 H ([facility]) (test code = 760) [id number] 15:10:00 Test Item Value Reference Range Interpretation Comments PARTIAL THROMBOPLASTIN TIME 81.4 seconds 22.5-36.0 H ([facility]) (test code = 760) POCT-GLUCOSE [id number] 11:58:00 Test Item Value Reference Range Interpretation Comments POC-GLUCOSE METER 124 mg/dL 70-110 H TESTED AT [place] [address] ([facility]) (test code = [facility] Paul [facility] 1538) [address] RAD, CHEST, 1 VIEW, NON [id number] 08:59:00Reason for exam:->s/p mvrShould this be performed at the bedside?->YesFINAL REPORT Chest one view compared to January 24 Discussion: Left IJ line, atrial appendage clip, cardiac valve replacement noted. Mild interstitial congestion. No gross effusion or pneumothorax. IMPRESSIONS: No significant change Signed: Rhea Colindres Verified Date/Time:01/29/2018 08:59:39 Reading Location: [facility] Radiology Reading Room POCT-GLUCOSE [id number] 07:41:00 Test Item Value Reference Range Interpretation Comments POC-GLUCOSE METER 113 mg/dL 70-110 H TESTED AT [place] [address] ([facility]) (test code = [place] Paul [facility] 1538) [address] [id number] 07:23:00 Test Item Value Reference Range Interpretation Comments PARTIAL THROMBOPLASTIN TIME 89.8 seconds 22.5-36.0 H ([facility]) (test code = 760) BASIC METABOLIC [id number] 06:05:00 Test Item Value Reference Range Interpretation [...] NOT APPLICABLE FOR DIALYSIS PATIEN TS. PROTHROMBIN [id number] 05:59:00 Test Item Value Reference Range Interpretation Comments PROTIME (BEAKER) (test code = 17.0 seconds 11.7-14.7 H 759) INR (BEAKER) (test code = 370) 1.4 <=5.9 RECOMMENDED COUMADIN/WARFARIN INR THERAPY RANGESSTANDARD DOSE: 2.0 - 3.0 Includes: PROPHYLAXIS forvenous thrombosis, systemic embolization; TREATMENT for venous thrombosis and/or pulmonary embolus.HIGH RISK: Target INR is 2.5-3.5 for patients with mechanical heart valves.While on warfarin.[id number] 05:56:00 Test Item Value Reference Range Interpretation Comments PHOSPHORUS (BEAKER) (test code = 5.3 mg/dL 2.3-4.7 H 604) [id number] 05:56:00 Test Item Value Reference Range Interpretation Comments MAGNESIUM (BEAKER) (test code = 1.9 mg/dL 1.6-2.6 627) CBC W/PLT COUNT & AUTO [id number] 05:38:00 Test Item Value Reference Range Interpretation [...] 0-1 PERCENT (BEAKER) (test code = 2801) [id number] 01:07:00 Test Item Value Reference Range Interpretation Comments PARTIAL THROMBOPLASTIN TIME 63.5 seconds 22.5-36.0 H (BEAKER) (test code = 760) [id number] 18:24:00 Test Item Value Reference Range Interpretation Comments PARTIAL THROMBOPLASTIN TIME 56.6 seconds 22.5-36.0 H (BEAKER) (test code = 760) POCT-GLUCOSE [id number] 18:14:00 Test Item Value Reference Range Interpretation Comments POC-GLUCOSE METER 101 mg/dL 70-110 TESTED AT [facility] 67 (BEAKER) (test code = MARIA G[place]MAN [place] 1538) [address] [id number] 13:57:00 Test Item Value Reference Range Interpretation Comments PARTIAL THROMBOPLASTIN TIME 122.3 seconds 22.5-36.0 H (BEAKER) (test code = 760) POCT-GLUCOSE [id number] 13:08:00 Test Item Value Reference Range Interpretation Comments POC-GLUCOSE METER 105 mg/dL 70-110 TESTED AT [facility] 6720 (BEAKER) (test code = [facility] Paul [facility] 1538) [address] BASIC METABOLIC [id number] 04:31:00 Test Item Value Reference Range Interpretation [...] S NOT APPLICABLE FOR DIALYSIS PATIEN TS. [id number] 04:28:00 Test Item Value Reference Range Interpretation Comments PHOSPHORUS (BEAKER) (test code = 3.9 mg/dL 2.3-4.7 604) [id number] 04:28:00 Test Item Value Reference Range Interpretation Comments MAGNESIUM (BEAKER) (test code = 1.7 mg/dL 1.6-2.6 627) HEPATIC FUNCTION [id number] 04:28:00 Test Item Value Reference Range Interpretation [...] (test code = 33 U/L 6-55 347) [id number] 04:20:00 Test Item Value Reference Range Interpretation Comments PARTIAL THROMBOPLASTIN TIME 106.2 seconds 22.5-36.0 H (BEAKER) (test code = 760) While on warfarin.PROTHROMBIN [id number] 04:15:00 Test Item Value Reference Range Interpretation [...] valves.While on warfarin.CBC W/PLT COUNT & AUTO [id number] 04:05:00 Test Item Value Reference Range Interpretation [...] IMMATURE GRANULOCYTES-RELATIVE 2 % 0-1 H PERCENT ([facility]) (test code = 2801) POCT-GLUCOSE [id number] 00:29:00 Test Item Value Reference Range Interpretation Comments POC-GLUCOSE METER 119 mg/dL 70-110 H TESTED AT [place] [address] ([facility]) (test code = [place] 1538) [address] [id number] 00:24:00 Test Item Value Reference Range Interpretation Comments PARTIAL THROMBOPLASTIN TIME 72.4 seconds 22.5-36.0 H ([facility]) (test code = 760) POCT-GLUCOSE [id number] 18:33:00 Test Item Value Reference Range Interpretation Comments POC-GLUCOSE METER 158 mg/dL 70-110 H TESTED AT [place] [address] ([facility]) (test code = [place] 1538) [address] [id number] 18:22:00 Test Item Value Reference Range Interpretation Comments PARTIAL THROMBOPLASTIN TIME 78.6 seconds 22.5-36.0 H ([facility]) (test code = 760) POCT-GLUCOSE [id number] 12:20:00 Test Item Value Reference Range Interpretation Comments POC-GLUCOSE METER 110 mg/dL 70-110 TESTED AT [place] [address] ([facility]) (test code = [place] Paul [place] 1538) [address] [id number] 12:04:00 Test Item Value Reference Range Interpretation Comments PARTIAL THROMBOPLASTIN TIME 98.0 seconds 22.5-36.0 H ([facility]) (test code = 760) [id number] 04:11:00 Test Item Value Reference Range Interpretation Comments PROTIME ([facility]) (test code = 15.2 seconds 11.7-14.7 H 759) INR ([facility]) (test code = 370) 1.2 <=5.9 PARTIAL THROMBOPLASTIN TIME 67.9 seconds 22.5-36.0 H ([facility]) (test code = 760) RECOMMENDED COUMADIN/WARFARIN INR THERAPY RANGESSTANDARD DOSE: 2.0 - 3.0 Includes: PROPHYLAXIS forvenous thrombosis, systemic embolization; TREATMENT for venous thrombosis and/or pulmonary embolus.HIGH RISK: Target INR is 2.5-3.5 for patients with mechanical heart valves.While on warfarin.While on warfarin. PROTHROMBIN TIME/[id number] 04:10:00 Test Item Value Reference Range Interpretation Comments PROTIME (BEAKER) (test code = 15.2 seconds 11.7-14.7 H 759) INR (BEAKER) (test code = 370) 1.2 <=5.9 RECOMMENDED COUMADIN/WARFARIN INR THERAPY RANGESSTANDARD DOSE: 2.0 - 3.0 Includes: PROPHYLAXIS forvenous thrombosis, systemic embolization; TREATMENT for venous thrombosis and/or pulmonary embolus.HIGH RISK: Target INR is 2.5-3.5 for patients with mechanical heart valves.BASIC METABOLIC [id number] 03:53:00 Test Item Value Reference Range Interpretation [...] PATIEN TS. CBC W/PLT COUNT & AUTO [id number] 03:50:00 Test Item Value Reference Range Interpretation [...] H PERCENT (BEAKER) (test code = 280) [id number] 03:45:00 Test Item Value Reference Range Interpretation Comments PHOSPHORUS (BEAKER) (test code = 4.7 mg/dL 2.3-4.7 604) [id number] 03:45:00 Test Item Value Reference Range Interpretation Comments MAGNESIUM (BEAKER) (test code = 2.0 mg/dL 1.6-2.6 627) HEPATIC FUNCTION [id number] 03:45:00 Test Item Value Reference Range Interpretation [...] (test code = 36 U/L 6-55 347) [id number] 22:16:00 Test Item Value Reference Range Interpretation Comments PARTIAL THROMBOPLASTIN TIME 60.7 seconds 22.5-36.0 H (BEAKER) (test code = 760) POCT-GLUCOSE [id number] 18:32:00 Test Item Value Reference Range Interpretation Comments POC-GLUCOSE METER 125 mg/dL 70-110 H TESTED AT [facility] 6720 (BEAKER) (test code = [place] Paul [place] 1538) [address] CBC (HEMOGRAM ONLY)2018-01-26 17:21:00 Test Item Value [...] (BEAKER) (test code = 413) BASIC METABOLIC [id number] 07:16:00 Test Item Value Reference Range Interpretation [...] S NOT APPLICABLE FOR DIALYSIS PATIEN TS. [id number] 07:13:00 Test Item Value Reference Range Interpretation Comments PHOSPHORUS (BEAKER) (test code = 4.3 mg/dL 2.3-4.7 604) [id number] 07:13:00 Test Item Value Reference Range Interpretation Comments MAGNESIUM (BEAKER) (test code = 2.0 mg/dL 1.6-2.6 627) HEPATIC FUNCTION [id number] 07:13:00 Test Item Value Reference Range Interpretation [...] (test code = 37 U/L 6-55 347) [id number] 07:12:00 Test Item Value Reference Range Interpretation [...] PERCENT (BEAKER) (test code = 2801) BLOOD [id number] 00:00:00 Test Item Value Reference Range Interpretation Comments CULTURE (BEAKER) (test No growth in 5 days code = 1095) BLOOD [id number] 00:00:00 Test Item Value Reference Range Interpretation Comments CULTURE (BEAKER) (test No growth in 5 days code = 1095) POCT-GLUCOSE [id number] 23:37:00 Test Item Value Reference Range Interpretation Comments POC-GLUCOSE METER 87 mg/dL 70-110 TESTED AT [facility] 6720 (BEAKER) (test code = [place] [address] 1538) [id number] 23:06:00 Test Item Value Reference Range Interpretation Comments PARTIAL THROMBOPLASTIN TIME 81.8 seconds 22.5-36.0 H (BEAKER) (test code = 760) POCT-GLUCOSE [id number] 20:42:00 Test Item Value Reference Range Interpretation Comments POC-GLUCOSE METER 193 mg/dL 70-110 H TESTED AT [facility] 67 (BEAKER) (test code = FOSTER Paul [place] 1538) [address] HEMOGLOBIN AND [id number] 17:40:00 Test Item Value Reference Range Interpretation Comments HEMOGLOBIN (BEAKER) (test code = 8.4 GM/DL 13.7-17.5 L 410) HEMATOCRIT (BEAKER) (test code = 25.4 % 40.1-51.0 L 411) [id number] 13:06:00 Test Item Value Reference Range Interpretation Comments PARTIAL THROMBOPLASTIN TIME 61.4 seconds 22.5-36.0 H (BEAKER) (test code = 760) POCT-GLUCOSE [id number] 12:56:00 Test Item Value Reference Range Interpretation Comments POC-GLUCOSE METER 116 mg/dL 70-110 H [facility] [place] [address] [facility] (test code = FOSTER Paul [place] 1538) [address] [id number] 06:43:00 Test Item Value Reference Range Interpretation [...] 37 % 20-55 (test code = 2590) [id number] 05:32:00 Test Item Value Reference Range Interpretation Comments PARTIAL THROMBOPLASTIN TIME 63.7 seconds 22.5-36.0 H (BEAKER) (test code = 760) BASIC METABOLIC [id number] 05:03:00 Test Item Value Reference Range Interpretation [...] APPLICABLE FOR DIALYSIS PATIEN TS. HEPATIC FUNCTION [id number] 05:00:00 Test Item Value Reference Range Interpretation [...] (test code = 41 U/L 6-55 347) [id number] 04:40:00 Test Item Value Reference Range Interpretation [...] 0-0 (BEAKER) (test code = 413) POCT-GLUCOSE [id number] 00:30:00 Test Item Value Reference Range Interpretation Comments POC-GLUCOSE METER 112 mg/dL 70-110 H TESTED AT [facility] 6720 (BEAKER) (test code = [place] 1538) [address] CBC W/PLT COUNT & AUTO [id number] 19:16:00 Test Item Value Reference Range Interpretation [...] % 0-1 PERCENT (BEAKER) (test code = 3624) POCT-GLUCOSE [id number] 18:27:00 Test Item Value Reference Range Interpretation Comments POC-GLUCOSE METER 102 mg/dL 70-110 TESTED AT [facility] 6720 (BEAKER) (test code = FOSTER [place] 1538) [address] POCT-GLUCOSE [id number] 13:01:00 Test Item Value Reference Range Interpretation Comments POC-GLUCOSE METER 119 mg/dL 70-110 H TESTED AT [facility] 6720 (BEAKER) (test code = FOSTER Paul [facility] 1538) [address] RAD, CHEST, 1 VIEW, NON [id number] 10:59:00Reason for exam:->ptxShould this be performed at [...] Mejiaeport Verified Date/Time: 01/24/2018 10:59:29 Reading Location: [facility] Diagnostic Imaging Reading Room - [place] [address] BRONCHIAL CULTURE + GRAM STAIN 2018-01-24 08:53:00 Test Item Value Reference Range Interpretation Comments CULTURE (BEAKER) 2+ Normal respiratory (test code = 1095) pete present GRAM STAIN RESULT 4+ White blood cells (BEAKER) (test code = seen 1123) GRAM STAIN RESULT No organisms seen (BEAKER) (test code = 46019) POCT-GLUCOSE [id number] 06:28:00 Test Item Value Reference Range Interpretation Comments POC-GLUCOSE METER 119 mg/dL 70-110 H TESTED AT [facility] 6720 (BEAKER) (test code = FOSTER Paul [facility] 1538) [address] BASIC METABOLIC [id number] 04:41:00 Test Item Value Reference Range Interpretation [...] WBC 0-0 (BEAKER) (test code = 413) [id number] 04:21:00 Test Item Value Reference Range Interpretation Comments MAGNESIUM (BEAKER) (test code = 2.0 mg/dL 1.6-2.6 627) HEPATIC FUNCTION [id number] 04:21:00 Test Item Value Reference Range Interpretation [...] = 36 U/L 6-55 347) Specimen slightly [id number] 04:13:00 Test Item Value Reference Range Interpretation Comments PARTIAL THROMBOPLASTIN TIME 72.1 seconds 22.5-36.0 H (BEAKER) (test code = 760) BLOOD GAS, [id number] 04:13:00 Test Item Value Reference Range Interpretation [...] (test code = 1819) 100.0 % POCT-GLUCOSE [id number] 00:08:00 Test Item Value Reference Range Interpretation Comments POC-GLUCOSE METER 150 mg/dL 70-110 H TESTED AT [facility] 6720 (BEAKER) (test code = FOSTER [place] 1538) [address] POCT-GLUCOSE [id number] 18:45:00 Test Item Value Reference Range Interpretation Comments POC-GLUCOSE METER 162 mg/dL 70-110 H TESTED AT [facility] 6720 (BEAKER) (test code = FOSTER Paul [place] 1538) [address] POCT-GLUCOSE [id number] 13:14:00 Test Item Value Reference Range Interpretation Comments POC-GLUCOSE METER 176 mg/dL 70-110 H TESTED AT [facility] 6720 (BEAKER) (test code = FOSTER Paul [place] 1538) [address] POCT-GLUCOSE [id number] 10:44:00 Test Item Value Reference Range Interpretation Comments POC-GLUCOSE METER 146 mg/dL 70-110 H TESTED AT [facility] 6720 (BEAKER) (test code = FOSTER Paul [place] 1538) [address] BLOOD GAS, [id number] 10:32:00 Test Item Value Reference Range Interpretation [...] 40.0 % RAD, CHEST, 1 VIEW, NON [id number] 09:14:00Reason for exam:->ptxShould this be performed at the bedside?->YesFINAL REPORT COMPARISON: 01/22/2018 TECHNIQUE: Single view of the chest FINDINGS: Bilateral interstitial and airspace opacities again seen. Small pleural effusions are suspected. No gross new lung parenchymal changes. There is a tiny right apical pneumothorax. Support lines and tubes are stable. IMPRESSION: No significant interval change. Signed: Kyle Romeeport Verified Date/Time: 01/23/2018 09:14:48 Reading Location: [facility] Radiology Reading Room Electronically sign ed by: KYLE ROME M.D. on 01/23/2018 09:14 AMBLOOD [id number] 08:09:00 Test Item Value Reference Range Interpretation Comments CULTURE (BEAKER) A From Aerobi c Bottle (test code = Only Lactobacil [place] 1095) species GRAM STAIN From aerobic RESULT (BEAKER) bottle only: gram (test code = positive rods 1123) NOT DETECTEDPanel is negative for [employer] BCID-detectable organisms. Please refer to traditional culture and sensitivity results as they become available.Other organisms and resistance markers not contained in this PCR panel cannot be excluded and follow-up of traditional culture results is required. This sample was tested at the [facility] Clinical Microbiology Laboratory using the [employer] Blood Culture ID Panel. This test is FDA cleared for in vitro diagnostic use and has been verified and approved by the [facility] Clinical Microbiology laboratory for clinical use. Reference Range: Not DetectedBLOOD GAS, [id number] 04:45:00 Test Item Value Reference Range Interpretation [...] code = 1819) 40.0 % BASIC METABOLIC [id number] 04:39:00 Test Item Value Reference Range Interpretation [...] APPLICABLE FOR DIALYSIS PATIEN TS. Specimen slightly [id number] 04:35:00 Test Item Value Reference Range Interpretation Comments MAGNESIUM (BEAKER) (test code = 1.8 mg/dL 1.6-2.6 627) HEPATIC FUNCTION [id number] 04:35:00 Test Item Value Reference Range Interpretation [...] = 40 U/L 6-55 347) Specimen slightly [id number] 04:18:00 Test Item Value Reference Range Interpretation [...] = 412) PLATELET COUNT (AKER) (test code 85 K/CU MM 150-450 L = 756) MEAN PLATELET VOLUME (BEAKER) 10.1 fL 9.4-12.4 (test code = 754) NUCLEATED RED BLOOD CELLS (AKER) 0 /100 WBC 0-0 (test code = 413) POCT-GLUCOSE [id number] 00:52:00 Test Item Value Reference Range Interpretation Comments POC-GLUCOSE METER 145 mg/dL 70-110 H TESTED AT [place] [address] ([facility]) (test code = [facility] 1538) [address] BLOOD [id number] 00:00:00 Test Item Value Reference Range Interpretation Comments CULTURE ([facility]) (test No growth in 5 days code = 1095) POCT-GLUCOSE [id number] 18:17:00 Test Item Value Reference Range Interpretation Comments POC-GLUCOSE METER 97 mg/dL 70-110 TESTED AT [place] [address] ([facility]) (test code = F[place] Paul [facility] [address] 1538) POCT-GLUCOSE [id number] 13:26:00 Test Item Value Reference Range Interpretation Comments POC-GLUCOSE METER 138 mg/dL 70-110 H TESTED AT [place] [address] ([facility]) (test code = [facility] Paul [facility] 1538) [address] BLOOD GAS, [id number] 10:32:00 Test Item Value Reference Range Interpretation Comments PH ARTERIAL ([facility]) (test code = 7.43 7.35-7.45 383) PCO2 [...] (test code = 1819) 40.0 % POCT-GLUCOSE [id number] 06:21:00 Test Item Value Reference Range Interpretation Comments POC-GLUCOSE METER 138 mg/dL 70-110 H TESTED AT [facility] 6720 (BEAKER) (test code = [place] 1538) [address] BASIC METABOLIC [id number] 04:25:00 Test Item Value Reference Range Interpretation [...] APPLICABLE FOR DIALYSIS PATIEN TS. Specimen slightly [id number] 04:24:00 Test Item Value Reference Range Interpretation Comments MAGNESIUM (BEAKER) (test code = 2.1 mg/dL 1.6-2.6 627) HEPATIC FUNCTION [id number] 04:24:00 Test Item Value Reference Range Interpretation [...] /100 WBC 0-0 (test code = 413) [id number] 04:07:00 Test Item Value Reference Range Interpretation Comments PARTIAL THROMBOPLASTIN TIME 80.2 seconds 22.5-36.0 H (BEAKER) (test code = 760) BLOOD GAS, [id number] 04:06:00 Test Item Value Reference Range Interpretation [...] 40.0 % RAD, CHEST, 1 VIEW, NON [id number] 03:32:00Reason for exam:->ptxShould this be performed at [...] MDReport Verified Date/Time: 01/22/2018 03:32:38 Reading Location: [facility] C013Y CT Body Reading Room POCT-GLUCOSE [id number] 00:43:00 Test Item Value Reference Range Interpretation Comments POC-GLUCOSE METER 102 mg/dL 70-110 TESTED AT [facility] [address] ([facility]) (test code = [place] 1538) [address] [id number] 17:31:00 Test Item Value Reference Range Interpretation Comments PARTIAL THROMBOPLASTIN TIME 65.0 seconds 22.5-36.0 H (BEAKER) (test code = 760) POCT-GLUCOSE [id number] 17:24:00 Test Item Value Reference Range Interpretation Comments POC-GLUCOSE METER 171 mg/dL 70-110 H TESTED AT [facility] [address] ([facility]) (test code = [place] 1538) [address] POCT-GLUCOSE [id number] 13:01:00 Test Item Value Reference Range Interpretation Comments POC-GLUCOSE METER 144 mg/dL 70-110 H TESTED AT [place] [address] ([facility]) (test code = [place] Paul [place] 1538) [address] [id number] 11:12:00 Test Item Value Reference Range Interpretation Comments PARTIAL THROMBOPLASTIN TIME 67.9 seconds 22.5-36.0 H (BEAKER) (test code = 760) RAD, CHEST, 1 VIEW, NON [id number] 08:01:00Reason for exam:->ptxShould this be performed at [...] MDReport Verified Date/Time: 01/21/2018 08:01:07 Reading Location: [facility] Radiology Reading Room POCT-GLUCOSE [id number] 06:50:00 Test Item Value Reference Range Interpretation Comments POC-GLUCOSE METER 149 mg/dL 70-110 H TESTED AT [facility] [address] ([facility]) (test code = [place] 1538) [address] CBC (HEMOGRAM ONLY)2018-01-21 04:20:00 Test Item Value [...] /100 WBC 0-0 (test code = 413) [id number] 04:03:00 Test Item Value Reference Range Interpretation Comments PARTIAL THROMBOPLASTIN TIME 51.2 seconds 22.5-36.0 H (BEAKER) (test code = 760) BASIC METABOLIC [id number] 04:01:00 Test Item Value Reference Range Interpretation [...] APPLICABLE FOR DIALYSIS PATIEN TS. Specimen moderately [id number] 03:59:00 Test Item Value Reference Range Interpretation Comments MAGNESIUM (BEAKER) (test code = 2.0 mg/dL 1.6-2.6 627) HEPATIC FUNCTION [id number] 03:59:00 Test Item Value Reference Range Interpretation [...] U/L 6-55 347) Specimen moderately ictericVANCOMYCIN LEVEL, [id number] 03:57:00 Test Item Value Reference Range Interpretation Comments VANCOMYCIN RANDOM (BEAKER) (test 18.3 ug/mL code = 523) Reference Range: No NormalsOXYGEN SATURATION, [id number] 03:32:00 Test Item Value Reference Range Interpretation Comments O2 SATURATION (MEASURED) (BEAKER) 86.3 % (test code = 1455) BLOOD GAS, [id number] 03:30:00 Test Item Value Reference Range Interpretation [...] H (test code = 387) PATIENT TEMPERATURE (AKER) (test 37.5 C code = 1818) FIO2 (BEAKER) (test code = 1819) 40.0 % POCT-GLUCOSE [id number] 23:43:00 Test Item Value Reference Range Interpretation Comments POC-GLUCOSE METER 143 mg/dL 70-110 H TESTED AT [place] [address] ([facility]) (test code = [place] 1538) [address] BLOOD [id number] 18:00:00 Test Item Value Reference Range Interpretation Comments CULTURE (BEAKER) (test No growth in 5 days code = 1095) BLOOD [id number] 18:00:00 Test Item Value Reference Range Interpretation Comments CULTURE (BEAKER) (test No growth in 5 days code = 1095) POCT-GLUCOSE [id number] 16:32:00 Test Item Value Reference Range Interpretation Comments POC-GLUCOSE METER 185 mg/dL 70-110 H TESTED AT [place] [address] ([facility]) (test code = [place] 1538) [address] MISCELLANEOUS LAB [id number] 15:04:00 Test Item Value Reference Range Interpretation Comments SCAN RESULT (test code = 7568042) Result comments: NOT DETECTED Panel is negative for [employer] BCID-detectable organisms. Please refer to traditional culture and sensitivity results as they become available. Other organisms and resistance markers not contained in this PCR panel cannot be excluded and follow-up of traditional culture results is required. This sample was tested at the [facility] Clinical Microbiology Laboratory using the LyksArray Blood Culture ID Panel. This test is FDA cleared for in vitro diagnostic use and hasbeen verified and approved by the [facility] Clinical Microbiology laboratory for clinical use. ReferenceRange: Not Detected POCT-GLUCOSE [id number] 12:25:00 Test Item Value Reference Range Interpretation Comments POC-GLUCOSE METER 116 mg/dL 70-110 H TESTED AT [facility] 67 ([facility]) (test code = F[place] Paul [facility] 1538) [address] RAD, CHEST, 1 VIEW, NON [id number] 06:38:00Reason for exam:->pl effusionShould this be performed [...] MDReport Verified Date/Time: 01/20/2018 06:38:33 Reading Location: [facility] C013Y CT Body Reading Room POCT-GLUCOSE [id number] 05:54:00 Test Item Value Reference Range Interpretation Comments POC-GLUCOSE METER 231 mg/dL 70-110 H TESTED AT [facility] 6720 (BEAKER) (test code = [place] Paul [facility] 1538) [address] VANCOMYCIN LEVEL, [id number] 04:23:00 Test Item Value Reference Range Interpretation Comments VANCOMYCIN RANDOM (BEAKER) (test 25.8 ug/mL code = 523) Reference Range: No [id number] 04:17:00 Test Item Value Reference Range Interpretation Comments MAGNESIUM (BEAKER) (test code = 2.0 mg/dL 1.6-2.6 627) HEPATIC FUNCTION [id number] 04:17:00 Test Item Value Reference Range Interpretation [...] 6-55 H 347) Specimen moderately ictericBASIC METABOLIC [id number] 04:17:00 Test Item Value Reference Range Interpretation [...] APPLICABLE FOR DIALYSIS PATIEN TS. Specimen moderately [id number] 04:05:00 Test Item Value Reference Range Interpretation Comments PARTIAL THROMBOPLASTIN TIME 69.7 seconds 22.5-36.0 H (BEAKER) (test code = 760) CBC W/PLT COUNT & AUTO [id number] 03:49:00 Test Item Value Reference Range Interpretation [...] 0-1 H PERCENT (BEAKER) (test code = 2808) OXYGEN SATURATION, [id number] 03:48:00 Test Item Value Reference Range Interpretation Comments O2 SATURATION (MEASURED) (BEAKER) 84.1 % (test code = 1455) POCT-GLUCOSE [id number] 23:14:00 Test Item Value Reference Range Interpretation Comments POC-GLUCOSE METER 248 mg/dL 70-110 H TEST[facility] AT [facility] 67[facility] (test code = [place] 153) [address] POCT-GLUCOSE [id number] 18:56:00 Test Item Value Reference Range Interpretation Comments POC-GLUCOSE METER 213 mg/dL 70-110 H TESTED AT [facility] 6720 (BEAKER) (test code = [place] 1538) [address] POCT-GLUCOSE [id number] 14:06:00 Test Item Value Reference Range Interpretation Comments POC-GLUCOSE METER 210 mg/dL 70-110 H TESTED AT [facility] 6720 (BEAKER) (test code = [place] 1538) [address] SPUTUM CULTURE + GRAM [id number] 13:45:00 Test Item Value Reference Range Interpretation Comments CULTURE (BEAKER) 4+ Normal respiratory (test code = 1095) pete present GRAM STAIN RESULT 4+ WBCs (BEAKER) (test code = 1123) GRAM STAIN RESULT 0-5 epithelial cells (BEAKER) (test code = 91425) GRAM STAIN RESULT 3+ gram negative rods (BEAKER) (test code = 18047) GRAM STAIN RESULT 2+ gram positive cocci (BEAKER) (test code = in pairs and clusters 852541) [id number] 12:37:00 Test Item Value Reference Range Interpretation Comments PARTIAL THROMBOPLASTIN TIME 74.3 seconds 22.5-36.0 H (BEAKER) (test code = 760) CBC W/PLT COUNT & AUTO [id number] 10:52:00 Test Item Value Reference Range Interpretation [...] H (test code = 413) VANCOMYCIN LEVEL, [id number] 05:41:00 Test Item Value Reference Range Interpretation Comments VANCOMYCIN RANDOM (BEAKER) (test 27.9 ug/mL code = 523) Reference Range: No NormalsBASIC METABOLIC [id number] 05:39:00 Test Item Value Reference Range Interpretation [...] APPLICABLE FOR DIALYSIS PATIEN TS. Specimen moderately [id number] 05:36:00 Test Item Value Reference Range Interpretation Comments MAGNESIUM (BEAKER) (test code = 2.0 mg/dL 1.6-2.6 627) [id number] 05:36:00 Test Item Value Reference Range Interpretation Comments PHOSPHORUS (BEAKER) (test code = 3.9 mg/dL 2.3-4.7 604) HEPATIC FUNCTION [id number] 05:36:00 Test Item Value Reference Range Interpretation [...] 6-55 H 347) Specimen moderately ictericOXYGEN SATURATION, [id number] 05:33:00 Test Item Value Reference Range Interpretation [...] WBC 0-0 H (test code = 413) [id number] 05:24:00 Test Item Value Reference Range Interpretation Comments PARTIAL THROMBOPLASTIN TIME 68.1 seconds 22.5-36.0 H (BEAKER) (test code = 760) RAD, CHEST, 1 VIEW, NON [id number] 04:41:00Reason for exam:->pl effusionShould this be performed at the bedside?->YesFINAL REPORT CLINICAL INDICATION: Support lines. Comparison: 01/18/2018 The ca rdiomediastinal contours are stable. Central pulmonary vascular congestion and bilateral parenchymalopacities are unchanged. There is no pneumothorax. Support lines are stable. Signed: Kellen Parra Verified Date/Time: 01/19/2018 04:41:27 Reading Location: [address] Reading Room APTT 2018-01-19 00:38:00 Test Item Value Reference Range Interpretation Comments PARTIAL THROMBOPLASTIN TIME 45.5 seconds 22.5-36.0 H (BEAKER) (test code = 760) POCT-GLUCOSE [id number] 00:21:00 Test Item Value Reference Range Interpretation Comments POC-GLUCOSE METER 189 mg/dL 70-110 H TESTED AT [place] [address] ([facility]) (test code = [place] 1538) [address] POCT-GLUCOSE [id number] 23:34:00 Test Item Value Reference Range Interpretation Comments POC-GLUCOSE METER 162 mg/dL 70-110 H TESTED AT [place] [address] ([facility]) (test code = [place] 1538) [address] POCT-GLUCOSE [id number] 18:09:00 Test Item Value Reference Range Interpretation Comments POC-GLUCOSE METER 172 mg/dL 70-110 H TESTED AT [place] [address] ([facility]) (test code = F[place] Paul [facility] 1538) [address] RAD, ABDOMEN/KUB, 1 VIEW [id number] 17:36:00Reason for exam:->ileusShould this be performed at the bedside?->YesFINAL REPORT Comparison: 01/17/2018 TECHNIQUE: Frontal image of the abdomen FINDINGS: There is a nonspecific bowel gas pattern. Tip of nasogastric projects in the distal stomach. No gross free intraperitoneal air. No acute skeletal abnormality. Signed: Kyle Rome MDReport Verified Date/Time: 01/18/2018 17:36:02 Reading Location: [address] Transitional Reading Room [id number] 17:10:00 Test Item Value Reference Range Interpretation Comments PARTIAL THROMBOPLASTIN TIME 27.8 seconds 22.5-36.0 (BEAKER) (test code = 760) Prior to initiating heparinPOCT-GLUCOSE [id number] 15:22:00 Test Item Value Reference Range Interpretation Comments POC-GLUCOSE METER 126 mg/dL 70-110 H TESTED AT [facility] 6720 (BEAKER) (test code = [place] Paul [facility] 1538) [address] [id number] 13:02:00 Test Item Value Reference Range Interpretation Comments PHOSPHORUS (BEAKER) (test code = 3.8 mg/dL 2.3-4.7 604) BASIC METABOLIC [id number] 13:02:00 Test Item Value Reference Range Interpretation [...] FOR DIALYSIS PATIEN TS. Specimen moderately ictericPOCT-GLUCOSE [id number] 12:11:00 Test Item Value Reference Range Interpretation Comments POC-GLUCOSE METER 113 mg/dL 70-110 H TESTED AT [facility] 6720 (BEAKER) (test code = [place] 1538) [address] CBC W/PLT COUNT & AUTO [id number] 12:03:00 Test Item Value Reference Range Interpretation [...] = 413) RAD, CHEST, 1 VIEW, NON [id number] 09:44:00Reason for exam:->pl effusionShould this be performed at the bedside?->YesFINAL REPORT TECHNIQUE: Single view of the chest. COMPARISON: 01/17/2018 FINDI NGS: Bilateral patchy interstitial and airspace opacities are stable. There are no large pleural effusions. No gross pneumothorax.No gross new lung parenchymal changes. A previous catheter in the rightneck has been removed. Remaining lines and tubes are stable. Signed: Kyle Rome MDReport Verified Date/Time: 01/18/2018 09:44:26 Reading Location: [address] Transitional Reading Room SPUTUM CULTURE + GRAM [id number] 08:09:00 Test Item Value Reference Range Interpretation Comments CULTURE (BEAKER) 3+ Normal respiratory (test code = 1095) pete present GRAM STAIN RESULT 4+ WBCs (BEAKER) (test code = 1123) GRAM STAIN RESULT 0-5 epithelial cells (BEAKER) (test code = 01361) GRAM STAIN RESULT No organisms seen (BEAKER) (test code = 10620) POCT-GLUCOSE [id number] 07:52:00 Test Item Value Reference Range Interpretation Comments POC-GLUCOSE METER 146 mg/dL 70-110 H TESTED AT [facility] 6720 (BEAKER) (test code = [facility] 1538) [address] POCT-GLUCOSE [id number] 06:30:00 Test Item Value Reference Range Interpretation Comments POC-GLUCOSE METER 135 mg/dL 70-110 H [facility] 6720 [facility] (test code = [facility] 1538) [address] POCT-GLUCOSE [id number] 06:30:00 Test Item Value Reference Range Interpretation Comments POC-GLUCOSE METER 130 mg/dL 70-110 H TESTED AT [place] [address] (BEAKER) (test code = [facility] 1538) [address] [id number] 03:56:00 Test Item Value Reference Range Interpretation Comments PHOSPHORUS (BEAKER) (test code = 3.1 mg/dL 2.3-4.7 604) [id number] 03:56:00 Test Item Value Reference Range Interpretation Comments MAGNESIUM (BEAKER) (test code = 2.0 mg/dL 1.6-2.6 627) HEPATIC FUNCTION [id number] 03:56:00 Test Item Value Reference Range Interpretation [...] 6-55 H 347) Specimen moderately ictericVANCOMYCIN LEVEL, [id number] 03:53:00 Test Item Value Reference Range Interpretation Comments VANCOMYCIN RANDOM (BEAKER) (test 18.0 ug/mL code = 523) Reference Range: No [id number] 03:48:00 Test Item Value Reference Range Interpretation Comments CALCIUM (BEAKER) (test code = 697) 8.1 mg/dL 8.4-10.2 L CALCIUM, [id number] 03:34:00 Test Item Value Reference Range Interpretation Comments CALCIUM IONIZED (BEAKER) (test 1.06 mmol/L 1.12-1.27 L code = 698) PH, BLOOD (BEAKER) (test code = 7.38 1810) OXYGEN SATURATION, [id number] 03:33:00 Test Item Value Reference Range Interpretation Comments O2 SATURATION (MEASURED) (BEAKER) 85.8 % (test code = 1455) POCT-GLUCOSE [id number] 03:26:00 Test Item Value Reference Range Interpretation Comments POC-GLUCOSE METER 144 mg/dL 70-110 H TESTED AT [facility] 6720 [facility] (test code = [place] 1538) [address] POCT-GLUCOSE [id number] 03:26:00 Test Item Value Reference Range Interpretation Comments POC-GLUCOSE METER 163 mg/dL 70-110 H TESTED AT [facility] 6720 [facility] (test code = [place] 1538) [address] POCT-GLUCOSE [id number] 01:04:00 Test Item Value Reference Range Interpretation Comments POC-GLUCOSE METER 159 mg/dL 70-110 H TESTED AT [facility] 6720 (BEAKER) (test code = [place] 1538) [address] POCT-GLUCOSE [id number] 00:12:00 Test Item Value Reference Range Interpretation Comments POC-GLUCOSE METER 132 mg/dL 70-110 H TESTED AT [facility] 6720 (BEAKER) (test code = [place] 1538) [address] LACTIC ACID, ARTERIAL, WHOLE [id number] 23:54:00 Test Item Value Reference Range Interpretation Comments LACTATE BLOOD ARTERIAL (2) 0.7 mmol/L 0.5-2.2 (BEAKER) (test code = 2874) Effective 01/04/2016: Units/Reference Range ChangeNew: 0.5-2.2 mmol/L Previous: 5-20 mg/dLSpecimen moderately ictericPOTASSIUM-STAT [id number] 23:30:00 Test Item Value Reference Range Interpretation Comments POTASSIUM (BEAKER) (test code = 4.0 meq/L 3.6-5.5 379) BLOOD GAS, [id number] 23:30:00 Test Item Value Reference Range Interpretation [...] code = 1819) 50.0 % SODIUM NA-STAT [id number] 23:30:00 Test Item Value Reference Range Interpretation Comments SODIUM (BEAKER) (test code = 381) 134 meq/L 135-148 L GLUCOSE-STAT [id number] 23:30:00 Test Item Value Reference Range Interpretation Comments GLUCOSE RANDOM (BEAKER) (test code 138 mg/dL 70-110 H = 652) HGB/HCT (H&H) - STAT [id number] 23:30:00 Test Item Value Reference Range Interpretation Comments HEMOGLOBIN (AKER) (test code = 9.0 g/dL 13.0-16.8 L 410) HEMATOCRIT ([facility]) (test code = 26.0 % 40.0-50.0 L 411) CALCIUM, [id number] 23:30:00 Test Item Value Reference Range Interpretation Comments CALCIUM IONIZED ([facility]) (test 1.04 mmol/L 1.12-1.27 L code = 698) PH, BLOOD ([facility]) (test code = 7.48 1810) OXYGEN SATURATION, [id number] 23:28:00 Test Item Value Reference Range Interpretation Comments O2 SATURATION (MEASURED) ([facility]) 82.0 % (test code = 1455) POCT-GLUCOSE [id number] 21:35:00 Test Item Value Reference Range Interpretation Comments POC-GLUCOSE METER 99 mg/dL 70-110 TESTED AT [facility] 67 ([facility]) (test [facility] = [facility] [address] 1538) POCT-GLUCOSE [id number] 21:35:00 Test Item Value Reference Range Interpretation Comments POC-GLUCOSE METER 111 mg/dL 70-110 H TESTED AT [place] [address] ([facility]) (test code = [facility] 1538) [address] RAD, CHEST, 1 VIEW, NON [id number] 17:08:00Reason for exam:->LIJ placment CVCShould this be [...] MDReport Verified Date/Time: 01/17/2018 17:08:24 Reading Location: [facility] Radiology Reading Room GLUCOSE-STAT [id number] 16:33:00 Test Item Value Reference Range Interpretation Comments GLUCOSE RANDOM (BEAKER) (test code 147 mg/dL 70-110 H = 652) POTASSIUM-STAT [id number] 16:32:00 Test Item Value Reference Range Interpretation Comments POTASSIUM (BEAKER) (test code = 4.7 meq/L 3.6-5.5 379) [id number] 15:03:00 Test Item Value Reference Range Interpretation Comments PROCALCITONIN (BEAKER) (test code 5.33 ng/mL <0.05 H = 3036) SEPSIS RISK (ng/mL)Low: 0.05-0.50Intermediate: 0.51-2.00High: >=2.01CT BRAIN WITHOUT IV CONTRAST - [id number] 13:50:00Reason for exam:->altered mental statusFINAL REPORT CT [...] Infection should be excluded clinically. Signed: Dung Grandaeport Verified Date/Time: 01/17/2018 13:50:42 Reading Location: [facility] Radiology Reading Room CALCIUM, [id number] 12:36:00 Test Item Value Reference Range Interpretation Comments CALCIUM IONIZED (BEAKER) (test 1.09 mmol/L 1.12-1.27 L code = 698) PH, BLOOD (BEAKER) (test code = 7.36 1810) GLUCOSE-STAT [id number] 12:36:00 Test Item Value Reference Range Interpretation Comments GLUCOSE RANDOM (BEAKER) (test code 147 mg/dL 70-110 H = 652) POTASSIUM-STAT [id number] 12:36:00 Test Item Value Reference Range Interpretation Comments POTASSIUM (BEAKER) (test code = 4.7 meq/L 3.6-5.5 379) RAD, ABDOMEN/KUB, 1 VIEW [id number] 08:42:00Reason for exam:->ileusShould this be performed at the bedside?->YesFINAL REPORT CLINICAL HISTORY: ileus TECHNIQUE: Supine abdomen COMPARISON: 01/16/2018 IMPRESSION: There is a nasogastric tube in the mid stomach. There is a left femoral line. Thebowel gas pattern is nonspecific with moderate stool in the colon. Free air and air-fluid levels arenot seen but cannot be definitively excluded on the supine view. Signed: Lorna Sladeort Verified Date/Time: 01/17/2018 08:42:09 Reading Location: [facility] Radiology Reading Room CBC W/PLT COUNT & AUTO [id number] 08:18:00 Test Item Value Reference Range Interpretation [...] (test code = 413) HEPARIN ASSAY - [id number] 08:07:00 Test Item Value Reference Range Interpretation Comments UNFRACTIONATED HEPARIN-ANTI 10A < u/ml 0.30-0.70 L ([facility]) (test code = 1606) Recommendations for Monitoring Unfractionated Heparin Therapeutic Range: 0.3- 0.7 u/mL with continuous IV infusionPOCT-GLUCOSE [id number] 06:09:00 Test Item Value Reference Range Interpretation Comments POC-GLUCOSE METER 143 mg/dL 70-110 H TESTED AT [facility] 6720 ([facility]) (test code = [place] 1538) [address] RAD, CHEST, 1 VIEW, NON [id number] 04:43:00Reason for exam:->acute respiratory insufficiencyShould this be performed at the bedside?->YesFINAL REPORT RAD, CHEST, 1 VIEW, NON DEPT INDICATION: acute respiratory insufficiency COMPARISON: Prior day's exam FINDINGS: Portable frontal view of the chest. IMPRESSION: Support Lines: Stable. Lungs and pleura: Scattered subsegmental atelectasis. No visible pneumothorax.Heart and mediastinum: Stable contours. Stable surgical changes.Additional findings: None. Signed: JR Lc, Juliana Cruzdamion Verified Date/Time: 01/17/2018 04:43:34 Reading Location: [facility] [id number] Body Reading Room OXYGEN SATURATION, [id number] 04:13:00 Test Item Value Reference Range Interpretation Comments O2 SATURATION (MEASURED) (BEAKER) 85.7 % (test code = 1455) [id number] 04:06:00 Test Item Value Reference Range Interpretation Comments PHOSPHORUS (BEAKER) (test code = 3.1 mg/dL 2.3-4.7 604) [id number] 04:06:00 Test Item Value Reference Range Interpretation Comments MAGNESIUM (BEAKER) (test code = 2.1 mg/dL 1.6-2.6 627) COMPREHENSIVE METABOLIC [id number] 04:06:00 Test Item Value Reference Range Interpretation [...] DIALYSIS PATIEN TS. Specimen moderately ictericHEPATIC FUNCTION [id number] 04:06:00 Test Item Value Reference Range Interpretation [...] 347) Specimen moderately ictericLACTIC ACID, ARTERIAL, WHOLE [id number] 03:59:00 Test Item Value Reference Range Interpretation Comments LACTATE BLOOD 0.5 mmol/L 0.5-2.2 Specimen sligh tly ARTERIAL (2) (BEAKER) hemoly zed (test code = 2874) Effective 01/04/2016: Units/Reference Range ChangeNew: 0.5-2.2 mmol/L Previous: 5-20 mg/dLSpecimen moderately ictericBLOOD GAS, [id number] 03:58:00 Test Item Value Reference Range Interpretation Comments PH ARTERIAL (BEAKER) (test code = 7.42 7.35-7.45 383) PCO2 ARTERIAL (BEAKER) (test code 40 mmHg 35-45 = 384) PO2 ARTERIAL (BEAKER) (test code = 131 mmHg 80-90 H 385) O2 SATURATION ARTERIAL (BEAKER) 98.8 % 96.0-97.0 H (test code = 386) HCO3 ARTERIAL (BEAKER) (test code 26 mmol/L 21-29 = 388) BASE EXCESS ARTERIAL ([facility]) 0.8 mmol/L -2.0-3.0 (test code = 387) PATIENT TEMPERATURE ([facility]) (test 35.6 C code = 1818) FIO2 ([facility]) (test code = 1819) 40.0 % CALCIUM, [id number] 03:58:00 Test Item Value Reference Range Interpretation Comments CALCIUM IONIZED ([facility]) (test 1.14 mmol/L 1.12-1.27 code = 698) PH, BLOOD ([facility]) (test code = 7.41 1810) POCT-GLUCOSE [id number] 02:41:00 Test Item Value Reference Range Interpretation Comments POC-GLUCOSE METER 144 mg/dL 70-110 H TESTED AT [place] [address] ([facility]) (test [facility] = [facility] 1538) [address] POCT-GLUCOSE [id number] 00:30:00 Test Item Value Reference Range Interpretation Comments POC-GLUCOSE METER 171 mg/dL 70-110 H TESTED AT [place] [address] ([facility]) (test code = [facility] Humberto [facility] 1538) [address] POTASSIUM-STAT [id number] 00:08:00 Test Item Value Reference Range Interpretation Comments POTASSIUM ([facility]) (test code = 4.5 meq/L 3.6-5.5 379) POCT-GLUCOSE [id number] 23:30:00 Test Item Value Reference Range Interpretation Comments POC-GLUCOSE METER 159 mg/dL 70-110 H TESTED AT [place] [address] ([facility]) (test code = [facility] 1538) [address] POCT-GLUCOSE [id number] 21:08:00 Test Item Value Reference Range Interpretation Comments POC-GLUCOSE METER 194 mg/dL 70-110 H TESTED AT [place] [address] ([facility]) (test code = [facility] [place] 1538) [address] POCT-GLUCOSE [id number] 21:08:00 Test Item Value Reference Range Interpretation Comments POC-GLUCOSE METER 230 mg/dL 70-110 H TESTED AT [place] [address] ([facility]) (test code = [facility] H[place] 1538) [address] CALCIUM, [id number] 19:23:00 Test Item Value Reference Range Interpretation Comments CALCIUM IONIZED (BEAKER) (test 1.14 mmol/L 1.12-1.27 code = 698) PH, BLOOD (BEAKER) (test code = 7.36 1810) POTASSIUM-STAT [id number] 19:23:00 Test Item Value Reference Range Interpretation Comments POTASSIUM (BEAKER) (test code = 5.1 meq/L 3.6-5.5 379) [id number] 17:27:00 Test Item Value Reference Range Interpretation Comments PHOSPHORUS (BEAKER) (test code = 2.2 mg/dL 2.3-4.7 L 604) [id number] 17:27:00 Test Item Value Reference Range Interpretation Comments MAGNESIUM (BEAKER) (test code = 2.1 mg/dL 1.6-2.6 627) PH, [id number] 17:03:00 Test Item Value Reference Range Interpretation Comments PH ARTERIAL (BEAKER) (test code = 383) 7.39 7.35-7.45 POCT-GLUCOSE [id number] 16:43:00 Test Item Value Reference Range Interpretation Comments POC-GLUCOSE METER 95 mg/dL 70-110 TESTED AT [place] [id number] ([facility]) (test code = [facility] [address] 1538) POCT-GLUCOSE [id number] 14:41:00 Test Item Value Reference Range Interpretation Comments POC-GLUCOSE METER 134 mg/dL 70-110 H TESTED AT [place] [address] ([facility]) (test code = [facility] 1538) [address] RAD, ABDOMEN/KUB, 1 VIEW [id number] 13:16:00Reason for exam:- >constipationShould this be performed [...] vertebral body. No acute osseous abnormality. Signed: Byron, Kay MDReport Verified Date/Time: 01/16/2018 13:16:27 Reading Location: [facility] Reading Room Electronically signed by: KAY WALTER on01/16/2018 01:16 PMCALCIUM, [id number] 12:38:00 Test Item Value Reference Range Interpretation Comments CALCIUM IONIZED ([facility]) (test 1.14 mmol/L 1.12-1.27 code = 698) PH, BLOOD ([facility]) (test code = 7.40 1810) POCT-GLUCOSE [id number] 12:29:00 Test Item Value Reference Range Interpretation Comments POC-GLUCOSE METER 127 mg/dL 70-110 H TESTED AT [place] [address] ([facility]) (test code = [facility] 1538) [address] POCT-GLUCOSE [id number] 10:34:00 Test Item Value Reference Range Interpretation Comments POC-GLUCOSE METER 130 mg/dL 70-110 H TESTED AT [place] [address] ([facility]) (test code = [facility] 1538) [address] POCT-GLUCOSE [id number] 09:10:00 Test Item Value Reference Range Interpretation Comments POC-GLUCOSE METER 151 mg/dL 70-110 H TESTED AT [place] [address] ([facility]) (test code = [facility] 1538) [address] HEPARIN ASSAY - [id number] 09:00:00 Test Item Value Reference Range Interpretation Comments UNFRACTIONATED HEPARIN-ANTI 10A < u/ml 0.30-0.70 L ([facility]) (test code = 1606) Recommendations for Monitoring Unfractionated Heparin Therapeutic Range: 0.3- 0.7 u/mL with continuous IV infusionCBC W/PLT COUNT & AUTO DIFFERENTIAL 2018-01-16 08:55:00 Test Item Value Reference Range Interpretation Comments WHITE BLOOD CELL COUNT ([facility]) 11.9 K/ L 3.5-10.5 H (test code = 775) RED BLOOD CELL COUNT ([facility]) 2.64 M/ L 4.63-6.08 L (test code = 761) HEMOGLOBIN ([facility]) (test code = 8.4 GM/DL 13.7-17.5 L 410) HEMATOCRIT ([facility]) (test code = 25.2 % 40.1-51.0 L [...] H (test code = 413) OXYGEN SATURATION, [id number] 08:30:00 Test Item Value Reference Range Interpretation Comments O2 SATURATION (MEASURED) (BEAKER) 87.1 % (test code = 1455) RAD, CHEST, 1 VIEW, NON [id number] 08:11:00Reason for exam:->acute respiratory insufficiencyShould this be performed at the bedside?->YesFINAL REPORT CLINICAL HISTORY: acute respiratory insufficiency TECHNIQUE: 1 view of the chest. COMPARISON: 01/15/2018 IMPRESSION: The Douglas-Moni catheter has been removed. The supporting lines and tubes are otherwise unchanged. There is no pneumothorax. Mild bilateral perihilar lung opacities have decreased. The cardiomediastinal silhouette is magnified by technique with sternotomy wires. Signed: Lorna Slade MDReport Verified Date/Time: 01/16/2018 08:11:02 Reading Location: [facility] Radiology Reading Room POCT- GLUCOSE [id number] 06:43:00 Test Item Value Reference Range Interpretation Comments POC-GLUCOSE METER 107 mg/dL 70-110 TESTED AT [facility] 67[address] ([facility]) (test code = [place] 1538) [address] U/S, ABDOMINAL, [id number] 05:25:00Abdomen limited area? Add comment if clarification [...] MDReport Verified Date/Time: 01/16/2018 05:25:06 Reading Location: [facility] C013Y CT Body Reading Room IC ACID, ARTERIAL, WHOLE [id number] 04:06:00 Test Item Value Reference Range Interpretation Comments LACTATE BLOOD ARTERIAL (2) 0.6 mmol/L 0.5-2.2 (BEAKER) (test code = 2874) Effective 01/04/2016: Units/Reference Range ChangeNew: 0.5-2.2 mmol/L Previous: 5-20 mg/dLSpecimen moderately [id number] 04:00:00 Test Item Value Reference Range Interpretation Comments PHOSPHORUS (BEAKER) (test code = 2.2 mg/dL 2.3-4.7 L 604) [id number] 04:00:00 Test Item Value Reference Range Interpretation Comments MAGNESIUM (BEAKER) (test code = 2.0 mg/dL 1.6-2.6 627) [id number] 04:00:00 Test Item Value Reference Range Interpretation Comments CALCIUM (BEAKER) (test code = 697) 8.5 mg/dL 8.4-10.2 COMPREHENSIVE METABOLIC [id number] 04:00:00 Test Item Value Reference Range Interpretation [...] DIALYSIS PATIEN TS. Specimen moderately ictericHEPATIC FUNCTION [id number] 04:00:00 Test Item Value Reference Range Interpretation [...] 6-55 H 347) Specimen moderately ictericBLOOD GAS, [id number] 03:51:00 Test Item Value Reference Range Interpretation [...] (test code = 1819) 60.0 % PROTHROMBIN [id number] 03:51:00 Test Item Value Reference Range Interpretation Comments PROTIME (BEAKER) (test code = 15.2 seconds 11.7-14.7 H 759) INR (BEAKER) (test code = 370) 1.2 <=5.9 RECOMMENDED COUMADIN/WARFARIN INR THERAPY RANGESSTANDARD DOSE: 2.0 - 3.0 Includes: PROPHYLAXIS forvenous thrombosis, systemic embolization; TREATMENT for venous thrombosis and/or pulmonary embolus.HIGH RISK: Target INR is 2.5-3.5 for patients with mechanical heart valves.CALCIUM, [id number] 03:51:00 Test Item Value Reference Range Interpretation Comments CALCIUM IONIZED (BEAKER) (test 1.17 mmol/L 1.12-1.27 code = 698) PH, BLOOD (BEAKER) (test code = 7.42 1810) POCT-GLUCOSE [id number] 02:08:00 Test Item Value Reference Range Interpretation Comments POC-GLUCOSE METER 110 mg/dL 70-110 TESTED AT [place] [address] ([facility]) (test code = [place] [facility] 1538) [address] POCT-GLUCOSE [id number] 01:14:00 Test Item Value Reference Range Interpretation Comments POC-GLUCOSE METER 107 mg/dL 70-110 TESTED AT [place] [address] ([facility]) (test code = [place] [facility] 1538) [address] POCT-GLUCOSE [id number] 00:29:00 Test Item Value Reference Range Interpretation Comments POC-GLUCOSE METER 129 mg/dL 70-110 H TESTED AT [place] [address] ([facility]) (test code = [place] [facility] 1538) [address] POCT-GLUCOSE [id number] 23:07:00 Test Item Value Reference Range Interpretation Comments POC-GLUCOSE METER 152 mg/dL 70-110 H TESTED AT [place] [address] ([facility]) (test code = [place] [facility] 1538) [address] POCT-GLUCOSE [id number] 22:09:00 Test Item Value Reference Range Interpretation Comments POC-GLUCOSE METER 171 mg/dL 70-110 H TESTED AT [place] [address] ([facility]) (test [facility] = [facility] 1538) [address] POCT-GLUCOSE [id number] 21:13:00 Test Item Value Reference Range Interpretation Comments POC-GLUCOSE METER 171 mg/dL 70-110 H TESTED AT [place] [address] ([facility]) (test code = [facility] H[place]to [facility] 1538) [address] CALCIUM, [id number] 20:50:00 Test Item Value Reference Range Interpretation Comments CALCIUM IONIZED ([facility]) (test 1.15 mmol/L 1.12-1.27 code = 698) PH, BLOOD ([facility]) (test code = 7.34 1810) POCT-GLUCOSE [id number] 20:21:00 Test Item Value Reference Range Interpretation Comments POC-GLUCOSE METER 206 mg/dL 70-110 H TESTED AT [place] [address] ([facility]) (test code = [facility] H[place] [facility] 1538) [address] POCT-GLUCOSE [id number] 19:16:00 Test Item Value Reference Range Interpretation Comments POC-GLUCOSE METER 197 mg/dL 70-110 H TESTED AT [facility] 6720 (J[facility]) (test code = [place] 1538) [address] [id number] 17:15:00 Test Item Value Reference Range Interpretation Comments PHOSPHORUS ([facility]) (test code = 4.1 mg/dL 2.3-4.7 604) [id number] 17:15:00 Test Item Value Reference Range Interpretation Comments MAGNESIUM ([facility]) (test code = 1.9 mg/dL 1.6-2.6 627) EEG AWAKE AND [id number] 14:56:00For STAT EEG- after 5 PM weekdays, weekends and holidays, page the on-call EEG TechReason for exam:->AMSShould this be performed at the bedside?->YesDate(s) of EE01/15/2018DATE OF REPORT: 01/15/2018ACC: [id number] Number: [id number] Location: Inpatient ICUStart time: 13:18Stop time: 13:40ICD-10: R41.82CPT Code: 48975 HISTORY: 62 y/o man with hxof AFib, [...] Kwon MD, MSClinic al Neurophysiology/Epilepsy Attending HEPARIN [id number] 13:21:00 Test Item Value Reference Range Interpretation Comments HEPARIN ANTIBODY ([facility]) (test code Negative Negative = 646) HEPARIN ANTIBODY OD ([facility]) (test 0.076 <0.400 code = 2659) 4T TOTAL SCORE ([facility]) (test code = 5 2721) Probability of HIT based on scoring system: 6-8 = High probability; 4-5 = intermediate probability;0-3 = low probabilityPOCT-GLUCOSE [id number] 12:26:00 Test Item Value Reference Range Interpretation Comments POC-GLUCOSE METER 128 mg/dL 70-110 H TESTED AT [facility] [address] ([facility]) (test code = [place] 1538) [address] FIBRIN SOLUBLE [id number] 11:02:00 Test Item Value Reference Range Interpretation Comments FIBRIN SOLUBLE MONOMER (AKER) Negative (test code = 1416) HEPARIN ASSAY - [id number] 10:20:00 Test Item Value Reference Range Interpretation Comments UNFRACTIONATED HEPARIN-ANTI 10A < u/ml 0.30-0.70 L ([facility]) (test code = 1606) Recommendations for Monitoring Unfractionated Heparin Therapeutic Range: 0.3- 0.7 u/mL with continuous IV [id number]-[id number] 10:14:00 Test Item Value Reference Range Interpretation Comments D-[facility] QU[facility]ITATIVE [facility] 3.76 MG/L FEU <0.50 H [...] of thrombosis is within 95-100% range. GLUCOSE-STAT [id number] 10:03:00 Test Item Value Reference Range Interpretation Comments GLUCOSE RANDOM (BEAKER) (test code 151 mg/dL 70-110 H = 652) CALCIUM, [id number] 10:02:00 Test Item Value Reference Range Interpretation Comments CALCIUM IONIZED (BEAKER) (test 1.13 mmol/L 1.12-1.27 code = 698) PH, BLOOD (BEAKER) (test code = 7.36 1810) POTASSIUM-STAT [id number] 10:01:00 Test Item Value Reference Range Interpretation Comments POTASSIUM (BEAKER) (test code = 4.3 meq/L 3.6-5.5 379) CBC W/PLT COUNT & AUTO [id number] 07:43:00 Test Item Value Reference Range Interpretation [...] = 2801) RAD, CHEST, 1 VIEW, NON [id number] 04:00:00Reason for exam:->acute respiratory insufficiencyShould this be performed at the bedside?->Yes Addendum BeginsREPORT STATUS:A Correction: Comparison is made to previous dated 01/14/2018. Signed: Kellen Parraort Verified Date/Time: 01/15/2018 04:00:43 Reading Location: [address] Reading RoomAddendum EndsFINAL REPORT CLINICAL ADEEL CATION: Respiratory insufficiency Comparison: 01/15/2018 The cardiomediastinal contours are stable. Central pulmonary vascular congestion and bilateral parenchymal opacities are unchanged. There is no pneumothorax. Support lines are stable. Signed: Kellen Parra MDReport Verified Date/Time: 01/15/201803:46:27 Reading Location: [address] Reading Room [id number] 03:36:00 Test Item Value Reference Range Interpretation Comments PHOSPHORUS (BEAKER) (test code = 2.7 mg/dL 2.3-4.7 604) [id number] 03:36:00 Test Item Value Reference Range Interpretation Comments MAGNESIUM (BEAKER) (test code = 2.0 mg/dL 1.6-2.6 627) COMPREHENSIVE METABOLIC [id number] 03:36:00 Test Item Value Reference Range Interpretation [...] DIALYSIS PATIEN TS. Specimen slightly ictericHEPATIC FUNCTION [id number] 03:36:00 Test Item Value Reference Range Interpretation [...] U/L 6-55 H 347) Specimen slightly ictericPROTHROMBIN [id number] 03:35:00 Test Item Value Reference Range Interpretation [...] mmol/L Previous: 5-20 mg/dLSpecimen slightly ictericBLOOD GAS, [id number] 03:29:00 Test Item Value Reference Range Interpretation [...] -2.0-3.0 (test code = 387) PATIENT TEMPERATURE ([facility]) 37.0 C (test code = 1818) [facility] (test code = 1819) 40.0 % OXYGEN SATURATION, [id number] 03:26:00 Test Item Value Reference Range Interpretation Comments O2 SATURATION (MEASURED) ([facility]) 72.5 % (test code = 1455) CALCIUM, [id number] 00:17:00 Test Item Value Reference Range Interpretation Comments CALCIUM IONIZED (BEAKER) (test 1.19 mmol/L 1.12-1.27 code = 698) PH, BLOOD ([facility]) (test code = 7.36 1810) POCT-GLUCOSE [id number] 00:15:00 Test Item Value Reference Range Interpretation Comments POC-GLUCOSE METER 144 mg/dL 70-110 H TESTED AT [place] [address] ([facility]) (test code = [facility] 1538) [address] POCT-GLUCOSE [id number] 22:43:00 Test Item Value Reference Range Interpretation Comments POC-GLUCOSE METER 98 mg/dL 70-110 TESTED AT [place] [address] ([facility]) (test code = [facility] [address] 1538) POCT-GLUCOSE [id number] 22:43:00 Test Item Value Reference Range Interpretation Comments POC-GLUCOSE METER 80 mg/dL 70-110 TESTED AT [place] [address] ([facility]) (test code = [facility] [address] 1538) VANCOMYCIN LEVEL, [id number] 20:20:00 Test Item Value Reference Range Interpretation Comments VANCOMYCIN TROUGH (AKER) (test 20.1 ug/mL 10.0-20.0 H code = 522) Before vanc [id number] 16:52:00 Test Item Value Reference Range Interpretation Comments PHOSPHORUS (BEAKER) (test code = 1.7 mg/dL 2.3-4.7 L 604) [id number] 16:52:00 Test Item Value Reference Range Interpretation Comments MAGNESIUM (BEAKER) (test code = 2.3 mg/dL 1.6-2.6 627) [id number] 16:39:00 Test Item Value Reference Range Interpretation Comments AMMONIA (BEAKER) (test code = 348) 32 mol/L 18-72 PH, [id number] 16:01:00 Test Item Value Reference Range Interpretation Comments PH ARTERIAL (BEAKER) (test code = 383) 7.42 7.35-7.45 GLUCOSE-STAT [id number] 16:01:00 Test Item Value Reference Range Interpretation Comments GLUCOSE RANDOM (BEAKER) (test code = 95 mg/dL 70-110 652) POTASSIUM-STAT [id number] 16:01:00 Test Item Value Reference Range Interpretation Comments POTASSIUM (BEAKER) (test code = 4.3 meq/L 3.6-5.5 379) CALCIUM, [id number] 16:01:00 Test Item Value Reference Range Interpretation Comments CALCIUM IONIZED (BEAKER) (test 1.28 mmol/L 1.12-1.27 H code = 698) PH, BLOOD (BEAKER) (test code = 7.42 1810) CALCIUM, [id number] 12:19:00 Test Item Value Reference Range Interpretation Comments CALCIUM IONIZED (BEAKER) (test 1.36 mmol/L 1.12-1.27 H code = 698) PH, BLOOD (BEAKER) (test code = 7.41 1810) GLUCOSE-STAT [id number] 12:17:00 Test Item Value Reference Range Interpretation Comments GLUCOSE RANDOM (BEAKER) (test code = 94 mg/dL 70-110 652) POTASSIUM-STAT [id number] 12:17:00 Test Item Value Reference Range Interpretation Comments POTASSIUM (BEAKER) (test code = 4.3 meq/L 3.6-5.5 379) [id number] 11:34:00 Test Item Value Reference Range Interpretation Comments MAGNESIUM (BEAKER) (test code = 2.1 mg/dL 1.6-2.6 627) BASIC METABOLIC [id number] 11:34:00 Test Item Value Reference Range Interpretation [...] DIALYSIS PATIEN TS. Specimen slightly ictericHEPATIC FUNCTION [id number] 11:34:00 Test Item Value Reference Range Interpretation [...] 6-55 H 347) Specimen slightly ictericBLOOD GAS, [id number] 09:44:00 Test Item Value Reference Range Interpretation [...] (test code = 1819) 100.0 % GLUCOSE-STAT [id number] 09:42:00 Test Item Value Reference Range Interpretation Comments GLUCOSE RANDOM (BEAKER) (test code = 95 mg/dL 70-110 652) POTASSIUM-STAT [id number] 09:42:00 Test Item Value Reference Range Interpretation Comments POTASSIUM (BEAKER) (test code = 4.5 meq/L 3.6-5.5 379) CALCIUM, [id number] 09:38:00 Test Item Value Reference Range Interpretation Comments CALCIUM IONIZED (BEAKER) (test 1.26 mmol/L 1.12-1.27 code = 698) PH, BLOOD (BEAKER) (test code = 7.41 1810) HEPARIN ASSAY - [id number] 08:44:00 Test Item Value Reference Range Interpretation Comments UNFRACTIONATED HEPARIN-ANTI 10A < u/ml 0.30-0.70 L (BEAKER) (test code = 1606) Recommendations for Monitoring Unfractionated Heparin Therapeutic Range: 0.3- 0.7 u/mL with continuous IV infusionGLUCOSE-STAT [id number] 06:41:00 Test Item Value Reference Range Interpretation [...] (test 0.0 % 0.0-5.0 code = 1414) [id number] 05:05:00 Test Item Value Reference Range Interpretation Comments PHOSPHORUS (BEAKER) (test code = 2.5 mg/dL 2.3-4.7 604) [id number] 05:05:00 Test Item Value Reference Range Interpretation Comments MAGNESIUM (BEAKER) (test code = 2.1 mg/dL 1.6-2.6 627) HEPATIC FUNCTION [id number] 05:05:00 Test Item Value Reference Range Interpretation [...] 1266 U/L 6-55 H 347) Specimen slightly [id number] 05:05:00 Test Item Value Reference Range Interpretation Comments CALCIUM (BEAKER) (test code = 697) 9.0 mg/dL 8.4-10.2 LACTATE DEHYDROGENASE (LDH)2018-01-14 05:05:00 Test Item Value Reference Range Interpretation Comments LACTATE DEHYDROGENASE (BEAKER) (test 667 U/L 125-220 H code = 635) PROTHROMBIN [id number] 05:05:00 Test Item Value Reference Range Interpretation Comments PROTIME (BEAKER) (test code = 15.2 seconds 11.7-14.7 H 759) INR (BEAKER) (test code = 370) 1.2 <=5.9 RECOMMENDED COUMADIN/WARFARIN INR THERAPY RANGESSTANDARD DOSE: 2.0 - 3.0 Includes: PROPHYLAXIS forvenous thrombosis, systemic embolization; TREATMENT for venous thrombosis and/or pulmonary embolus.HIGH RISK: Target INR is 2.5-3.5 for patients with mechanical heart valves.[id number] 05:05:00 Test Item Value Reference Range Interpretation Comments FIBRINOGEN LEVEL (BEAKER) (test 280 mg/dl 225-434 code = 658) RAD, CHEST, 1 VIEW, NON [id number] 04:57:00Reason for exam:- >impella/ECMO/intubationShould this be performed at the bedside?->YesFINAL REPORT CLINICAL INDICATION: Support lines. Comparison: 01/13/2018 The cardiomediastinal contours are stable. Cardiac opacities may reflect atelectasis but pneumonitis should be excluded clinically. There is no pneumothorax. Support lines are stable. Signed: Kellen Parra MDReport Verified Date/Time: 01/14/2018 04:57:02 Reading Location: [address] Reading Room LACTIC ACID, ARTERIAL, WHOLE [id number] 04:55:00 Test Item Value Reference Range Interpretation [...] H (BEAKER) (test code = 413) CALCIUM, [id number] 04:39:00 Test Item Value Reference Range Interpretation Comments CALCIUM IONIZED (BEAKER) (test 1.20 mmol/L 1.12-1.27 code = 698) PH, BLOOD (BEAKER) (test code = 7.37 1810) OXYGEN SATURATION, [id number] 04:38:00 Test Item Value Reference Range Interpretation Comments O2 SATURATION (MEASURED) (BEAKER) 75.3 % (test code = 1455) BLOOD GAS, [id number] 04:37:00 Test Item Value Reference Range Interpretation [...] (test code = 1819) 40.0 % GLUCOSE-STAT [id number] 04:37:00 Test Item Value Reference Range Interpretation Comments GLUCOSE RANDOM (BEAKER) (test code 154 mg/dL 70-110 H = 652) GLUCOSE-STAT [id number] 02:52:00 Test Item Value Reference Range Interpretation Comments GLUCOSE RANDOM (BEAKER) (test code 179 mg/dL 70-110 H = 652) GLUCOSE-STAT [id number] 01:26:00 Test Item Value Reference Range Interpretation Comments GLUCOSE RANDOM (BEAKER) (test code 195 mg/dL 70-110 H = 652) [id number] 00:08:00 Test Item Value Reference Range Interpretation Comments POTASSIUM (BEAKER) (test code = 4.2 meq/L 3.5-5.1 379) [id number] 00:08:00 Test Item Value Reference Range Interpretation Comments GLUCOSE RANDOM (BEAKER) (test code 237 mg/dL 70-105 H = 652) CBC W/PLT COUNT & AUTO [id number] 22:28:00 Test Item Value Reference Range Interpretation [...] = 413) RAD, CHEST, 1 VIEW, NON [id number] 21:50:00Reason for exam:->chest tubes/intubationShould this be performed [...] MDReport Verified Date/Time: 01/13/2018 21:50:50 Reading Location: [address] Consult Reading Room THROMBOELASTOGRAPH (TEG)2018-01-13 21:45:00 [...] % 0.0-5.0 code = 1414) BASIC METABOLIC [id number] 21:35:00 Test Item Value Reference Range Interpretation [...] APPLICABLE FOR DIALYSIS PATIEN TS. Specimen slightly [id number] 21:06:00 Test Item Value Reference Range Interpretation Comments PHOSPHORUS (BEAKER) (test code = 3.7 mg/dL 2.3-4.7 604) [id number] 21:06:00 Test Item Value Reference Range Interpretation Comments MAGNESIUM (BEAKER) (test code = 2.0 mg/dL 1.6-2.6 627) LACTIC ACID, ARTERIAL, WHOLE [id number] 21:06:00 Test Item Value Reference Range Interpretation Comments LACTATE BLOOD ARTERIAL (2) 1.8 mmol/L 0.5-2.2 (BEAKER) (test code = 2874) Effective 01/04/2016: Units/Reference Range ChangeNew: 0.5-2.2 mmol/L Previous: 5-20 mg/dLSpecimen slightly [id number] 21:01:00 Test Item Value Reference Range Interpretation Comments PARTIAL THROMBOPLASTIN TIME 35.1 seconds 22.5-36.0 (BEAKER) (test code = 760) [id number] 21:00:00 Test Item Value Reference Range Interpretation Comments FIBRINOGEN LEVEL (BEAKER) (test 253 mg/dl 225-434 code = 658) PROTHROMBIN TIME/[id number] 20:59:00 Test Item Value Reference Range Interpretation Comments PROTIME (BEAKER) (test code = 16.4 seconds 11.7-14.7 H 759) INR (BEAKER) (test code = 370) 1.3 <=5.9 RECOMMENDED COUMADIN/WARFARIN INR THERAPY RANGESSTANDARD DOSE: 2.0 - 3.0 Includes: PROPHYLAXIS forvenous thrombosis, systemic embolization; TREATMENT for venous thrombosis and/or pulmonary embolus.HIGH RISK: Target INR is 2.5-3.5 for patients with mechanical heart valves.BLOOD GAS, [id number] 20:47:00 Test Item Value Reference Range Interpretation [...] (test code = 1819) 40.0 % GLUCOSE-STAT [id number] 20:47:00 Test Item Value Reference Range Interpretation Comments GLUCOSE RANDOM (BEAKER) (test code 235 mg/dL 70-110 H = 652) CALCIUM, [id number] 20:47:00 Test Item Value Reference Range Interpretation Comments CALCIUM IONIZED (BEAKER) (test 0.97 mmol/L 1.12-1.27 L code = 698) PH, BLOOD (BEAKER) (test code = 7.39 1810) HGB/HCT (H&H) - STAT [id number] 20:46:00 Test Item Value Reference Range Interpretation Comments HEMOGLOBIN (BEAKER) (test code = 7.7 g/dL 13.0-16.8 L 410) HEMATOCRIT (BEAKER) (test code = 23.0 % 40.0-50.0 L 411) POTASSIUM-STAT [id number] 20:46:00 Test Item Value Reference Range Interpretation Comments POTASSIUM (BEAKER) (test code = 3.4 meq/L 3.6-5.5 L 379) SODIUM NA-STAT [id number] 20:46:00 Test Item Value Reference Range Interpretation Comments SODIUM (BEAKER) (test code = 381) 133 meq/L 135-148 L OXYGEN SATURATION, [id number] 20:42:00 Test Item Value Reference Range Interpretation Comments O2 SATURATION (MEASURED) (BEAKER) 74.1 % (test code = 1455) BLOOD GAS, [id number] 18:58:00 Test Item Value Reference Range Interpretation [...] code = 1819) 100.0 % SODIUM NA-STAT [id number] 18:58:00 Test Item Value Reference Range Interpretation Comments SODIUM (BEAKER) (test code = 381) 131 meq/L 135-148 L POTASSIUM-STAT [id number] 18:58:00 Test Item Value Reference Range Interpretation Comments POTASSIUM (BEAKER) (test code = 3.4 meq/L 3.6-5.5 L 379) GLUCOSE-STAT [id number] 18:58:00 Test Item Value Reference Range Interpretation Comments GLUCOSE RANDOM (BEAKER) (test code 214 mg/dL 70-110 H = 652) HGB/HCT (H&H) - STAT [id number] 18:58:00 Test Item Value Reference Range Interpretation [...] % 0.0-5.0 code = 1414) BLOOD GAS, [id number] 18:11:00 Test Item Value Reference Range Interpretation [...] code = 1819) 97.0 % SODIUM NA-STAT [id number] 18:11:00 Test Item Value Reference Range Interpretation Comments SODIUM (BEAKER) (test code = 381) 132 meq/L 135-148 L GLUCOSE-STAT [id number] 18:11:00 Test Item Value Reference Range Interpretation Comments GLUCOSE RANDOM (BEAKER) (test code 200 mg/dL 70-110 H = 652) HGB/HCT (H&H) - STAT [id number] 18:11:00 Test Item Value Reference Range Interpretation Comments HEMOGLOBIN (BEAKER) (test code = 8.2 g/dL 13.0-16.8 L 410) HEMATOCRIT (BEAKER) (test code = 24.0 % 40.0-50.0 L 411) POTASSIUM-STAT [id number] 18:07:00 Test Item Value Reference Range Interpretation Comments POTASSIUM (BEAKER) (test code = 3.5 meq/L 3.6-5.5 L 379) [id number] 16:37:00 Test Item Value Reference Range Interpretation Comments PHOSPHORUS (BEAKER) (test code = 2.5 mg/dL 2.3-4.7 604) [id number] 16:37:00 Test Item Value Reference Range Interpretation Comments MAGNESIUM (BEAKER) (test code = 2.1 mg/dL 1.6-2.6 627) [id number] 16:29:00 Test Item Value Reference Range Interpretation [...] for patients with mechanical heart valves.BLOOD GAS, [id number] 16:16:00 Test Item Value Reference Range Interpretation [...] (test code = 1819) 40.0 % CALCIUM, [id number] 16:14:00 Test Item Value Reference Range Interpretation Comments CALCIUM IONIZED (BEAKER) (test 1.09 mmol/L 1.12-1.27 L code = 698) PH, BLOOD (BEAKER) (test code = 7.64 1810) GLUCOSE-STAT [id number] 16:12:00 Test Item Value Reference Range Interpretation Comments GLUCOSE RANDOM (BEAKER) (test code 182 mg/dL 70-110 H = 652) CALCIUM, [id number] 12:53:00 Test Item Value Reference Range Interpretation Comments CALCIUM IONIZED (BEAKER) (test 1.12 mmol/L 1.12-1.27 code = 698) PH, BLOOD (BEAKER) (test code = 7.51 1810) BLOOD GAS, [id number] 12:53:00 Test Item Value Reference Range Interpretation [...] 1819) 40.0 % HGB/HCT (H&H) - STAT [id number] 12:53:00 Test Item Value Reference Range Interpretation Comments HEMOGLOBIN (BEAKER) (test code = 8.3 g/dL 13.0-16.8 L 410) HEMATOCRIT (BEAKER) (test code = 24.0 % 40.0-50.0 L 411) GLUCOSE-STAT [id number] 12:53:00 Test Item Value Reference Range Interpretation Comments GLUCOSE RANDOM (BEAKER) (test code 185 mg/dL 70-110 H = 652) POTASSIUM-STAT [id number] 12:52:00 Test Item Value Reference Range Interpretation Comments POTASSIUM (BEAKER) (test code = 3.7 meq/L 3.6-5.5 379) CBC W/PLT COUNT & AUTO [id number] 11:04:00 Test Item Value Reference Range Interpretation [...] 0-0 H (test code = 413) POTASSIUM-STAT [id number] 10:49:00 Test Item Value Reference Range Interpretation Comments POTASSIUM (BEAKER) (test code = 3.8 meq/L 3.6-5.5 379) HEPARIN ASSAY - [id number] 09:55:00 Test Item Value Reference Range Interpretation Comments UNFRACTIONATED HEPARIN-ANTI 10A 0.14 u/ml 0.30-0.70 L (BEAKER) (test code = 1606) Recommendations for Monitoring Unfractionated Heparin Therapeutic Range: 0.3- 0.7 u/mL with continuous IV [id number] 09:54:00 Test Item Value Reference Range Interpretation Comments PARTIAL THROMBOPLASTIN TIME 57.6 seconds 22.5-36.0 H (BEAKER) (test code = 760) BLOOD GAS, [id number] 09:33:00 Test Item Value Reference Range Interpretation [...] (test code = 1819) 40.0 % GLUCOSE-STAT [id number] 09:33:00 Test Item Value Reference Range Interpretation Comments GLUCOSE RANDOM (BEAKER) (test code 192 mg/dL 70-110 H = 652) GLUCOSE-STAT [id number] 09:33:00 Test Item Value Reference Range Interpretation Comments GLUCOSE RANDOM (BEAKER) (test code 192 mg/dL 70-110 H = 652) CALCIUM, [id number] 09:32:00 Test Item Value Reference Range Interpretation Comments CALCIUM IONIZED (BEAKER) (test 1.15 mmol/L 1.12-1.27 code = 698) PH, BLOOD (BEAKER) (test code = 7.51 1810) BLOOD GAS, [id number] 07:23:00 Test Item Value Reference Range Interpretation [...] % 0.0-5.0 code = 1414) BLOOD GAS, [id number] 06:13:00 Test Item Value Reference Range Interpretation [...] code = 1819) 40.0 % BLOOD GAS, [id number] 05:13:00 Test Item Value Reference Range Interpretation [...] (BEAKER) (test code = 1819) 100.0 % [id number] 04:41:00 Test Item Value Reference Range Interpretation Comments PARTIAL THROMBOPLASTIN TIME 61.3 seconds 22.5-36.0 H (BEAKER) (test code = 760) RAD, CHEST, 1 VIEW, NON [id number] 04:38:00Reason for exam:- >impella/ECMO/intubationShould this be performed at the bedside?->YesFINAL REPORT CLINICAL INDICATION: Support lines. Comparison: 01/12/2018 The cardiomediastinal contours are stable. Central pulmonary vascular prominence and bilateral parenchymalopacities are previous. There is no pneumothorax. Support lines are stable. Signed: Kellen Parra MDReport Verified Date/Time: 01/13/2018 04:38:41 Reading Location: [address] Reading Room HEPATIC FUNCTION [id number] 04:25:00 Test Item Value Reference Range Interpretation [...] 2232 U/L 6-55 H 347) Specimen slightly [id number] 04:19:00 Test Item Value Reference Range Interpretation Comments PHOSPHORUS (BEAKER) (test code = 4.1 mg/dL 2.3-4.7 604) [id number] 04:19:00 Test Item Value Reference Range Interpretation Comments MAGNESIUM (BEAKER) (test code = 1.9 mg/dL 1.6-2.6 627) [id number] 04:19:00 Test Item Value Reference Range Interpretation Comments CALCIUM (BEAKER) (test code = 697) 8.6 mg/dL 8.4-10.2 BASIC METABOLIC [id number] 04:19:00 Test Item Value Reference Range Interpretation [...] 1658 U/L 125-220 H code = 635) [id number] 04:16:00 Test Item Value Reference Range Interpretation Comments FIBRINOGEN LEVEL (BEAKER) (test 299 mg/dl 225-434 code = 658) LACTIC ACID, ARTERIAL, WHOLE [id number] 04:16:00 Test Item Value Reference Range Interpretation Comments LACTATE BLOOD ARTERIAL (2) 0.8 mmol/L 0.5-2.2 (BEAKER) (test code = 2874) Effective 01/04/2016: Units/Reference Range ChangeNew: 0.5-2.2 mmol/L Previous: 5-20 mg/dLSpecimen slightly ictericPROTHROMBIN [id number] 04:15:00 Test Item Value Reference Range Interpretation Comments PROTIME (BEAKER) (test code = 15.8 seconds 11.7-14.7 H 759) INR (BEAKER) (test code = 370) 1.3 <=5.9 RECOMMENDED COUMADIN/WARFARIN INR THERAPY RANGESSTANDARD DOSE: 2.0 - 3.0 Includes: PROPHYLAXIS forvenous thrombosis, systemic embolization; TREATMENT for venous thrombosis and/or pulmonary embolus.HIGH RISK: Target INR is 2.5-3.5 for patients with mechanical heart valves.CALCIUM, [id number] 04:04:00 Test Item Value Reference Range Interpretation Comments CALCIUM IONIZED (BEAKER) (test 1.15 mmol/L 1.12-1.27 code = 698) PH, BLOOD (BEAKER) (test code = 7.33 1810) BLOOD GAS, [id number] 04:03:00 Test Item Value Reference Range Interpretation [...] (test code = 1819) 40.0 % PLATELET [id number] 03:58:00 Test Item Value Reference Range Interpretation Comments PLATELET COUNT (BEAKER) (test code 89 K/CU MM 150-450 L = 756) OXYGEN SATURATION, [id number] 03:57:00 Test Item Value Reference Range Interpretation Comments O2 SATURATION (MEASURED) (BEAKER) 79.4 % (test code = 1455) BLOOD GAS, [id number] 01:19:00 Test Item Value Reference Range Interpretation [...] (test code = 1819) 40.0 % GLUCOSE-STAT [id number] 01:19:00 Test Item Value Reference Range Interpretation Comments GLUCOSE RANDOM (BEAKER) (test code 177 mg/dL 70-110 H = 652) POTASSIUM-STAT [id number] 01:18:00 Test Item Value Reference Range Interpretation Comments POTASSIUM (BEAKER) (test code = 4.0 meq/L 3.6-5.5 379) CALCIUM, [id number] 01:17:00 Test Item Value Reference Range Interpretation [...] (test 0.0 % 0.0-5.0 code = 1414) [id number] 20:36:00 Test Item Value Reference Range Interpretation Comments POTASSIUM (BEAKER) (test code = 4.2 meq/L 3.5-5.1 379) [id number] 20:36:00 Test Item Value Reference Range Interpretation Comments MAGNESIUM (BEAKER) (test code = 1.8 mg/dL 1.6-2.6 627) [id number] 20:36:00 Test Item Value Reference Range Interpretation Comments PHOSPHORUS (BEAKER) (test code = 3.5 mg/dL 2.3-4.7 604) LACTIC ACID, ARTERIAL, WHOLE [id number] 20:33:00 Test Item Value Reference Range Interpretation Comments LACTATE BLOOD ARTERIAL (2) 0.8 mmol/L 0.5-2.2 (BEAKER) (test code = 2874) Effective 01/04/2016: Units/Reference Range ChangeNew: 0.5-2.2 mmol/L Previous: 5-20 mg/dLSpecimen slightly ictericBLOOD GAS, [id number] 20:20:00 Test Item Value Reference Range Interpretation [...] (test code = 1819) 40.0 % GLUCOSE-STAT [id number] 20:20:00 Test Item Value Reference Range Interpretation Comments GLUCOSE RANDOM (BEAKER) (test code 180 mg/dL 70-110 H = 652) [id number] 18:34:00 Test Item Value Reference Range Interpretation Comments GLUCOSE RANDOM (BEAKER) (test code 218 mg/dL 70-105 H = 652) BLOOD GAS, [id number] 18:18:00 Test Item Value Reference Range Interpretation [...] (BEAKER) (test code = 1819) 40.0 % [id number] 17:12:00 Test Item Value Reference Range Interpretation Comments PARTIAL THROMBOPLASTIN TIME 54.1 seconds 22.5-36.0 H (BEAKER) (test code = 760) [id number] 17:12:00 Test Item Value Reference Range Interpretation Comments FIBRINOGEN LEVEL (BEAKER) (test 285 mg/dl 225-434 code = 658) PROTHROMBIN [id number] 17:10:00 Test Item Value Reference Range Interpretation [...] ChangeNew: 0.5-2.2 mmol/L Previous: 5-20 mg/dLSpecimen slightly [id number] 17:01:00 Test Item Value Reference Range Interpretation Comments POTASSIUM (BEAKER) (test code = 4.5 meq/L 3.5-5.1 379) [id number] 17:01:00 Test Item Value Reference Range Interpretation Comments GLUCOSE RANDOM (BEAKER) (test code 239 mg/dL 70-105 H = 652) PLATELET [id number] 16:46:00 Test Item Value Reference Range Interpretation Comments PLATELET COUNT (BEAKER) (test code 86 K/CU MM 150-450 L = 756) BLOOD GAS, [id number] 16:36:00 Test Item Value Reference Range Interpretation [...] (test 37.0 C code = 1818) CALCIUM, [id number] 16:36:00 Test Item Value Reference Range Interpretation Comments CALCIUM IONIZED (BEAKER) (test 1.08 mmol/L 1.12-1.27 L code = 698) PH, BLOOD (BEAKER) (test code = 7.46 1810) [id number] 15:00:00 Test Item Value Reference Range Interpretation Comments POTASSIUM (BEAKER) (test code = 4.7 meq/L 3.5-5.1 379) [id number] 15:00:00 Test Item Value Reference Range Interpretation Comments GLUCOSE RANDOM (BEAKER) (test code 210 mg/dL 70-105 H = 652) BLOOD GAS, [id number] 14:42:00 Test Item Value Reference Range Interpretation [...] 40.0 % RAD, CHEST, 1 VIEW, NON [id number] 14:41:00Reason for exam:->chest tube insertionFINAL REPORT CHEST [...] Wilkerson Verified Date/Time: 01/12/2018 14:41:22 Reading Location: [facility] B1 C013T Transitional Reading Room MBOELASTOGRAPH (TEG)2018-01-12 12:43:00 [...] (test 0.0 % 0.0-5.0 code = 1414) [id number] 11:23:00 Test Item Value Reference Range Interpretation [...] exclusion of thrombosis is within 95-100% range. [id number] 10:10:00 Test Item Value Reference Range Interpretation Comments MAGNESIUM (BEAKER) 2.1 mg/dL 1.6-2.6 Specimen slightly (test code = 627) hemolyzed [id number] 10:10:00 Test Item Value Reference Range Interpretation Comments PHOSPHORUS (BEAKER) 4.2 mg/dL 2.3-4.7 Specimen slightly (test code = 604) hemolyzed [id number] 10:10:00 Test Item Value Reference Range Interpretation Comments POTASSIUM (BEAKER) 5.0 meq/L 3.5-5.1 Specimen slightly (test code = 379) hemolyzed [id number] 10:10:00 Test Item Value Reference Range Interpretation Comments GLUCOSE RANDOM (BEAKER) (test code 204 mg/dL 70-105 H = 652) [id number] 10:07:00 Test Item Value Reference Range Interpretation Comments FIBRINOGEN LEVEL (BEAKER) (test 251 mg/dl 225-434 code = 658) ANTITHROMBIN [id number] 10:04:00 Test Item Value Reference Range Interpretation Comments ANTITHROMBIN III ACTIVITY (BEAKER) 46.0 % 80.0-120.0 L (test code = 711) [id number] 09:58:00 Test Item Value Reference Range Interpretation Comments PARTIAL THROMBOPLASTIN TIME 59.8 seconds 22.5-36.0 H (BEAKER) (test code = 760) PROTHROMBIN [id number] 09:57:00 Test Item Value Reference Range Interpretation Comments PROTIME (BEAKER) (test code = 19.3 seconds 11.7-14.7 H 759) INR (BEAKER) (test code = 370) 1.6 <=5.9 RECOMMENDED COUMADIN/WARFARIN INR THERAPY RANGESSTANDARD DOSE: 2.0 - 3.0 Includes: PROPHYLAXIS forvenous thrombosis, systemic embolization; TREATMENT for venous thrombosis and/or pulmonary embolus.HIGH RISK: Target INR is 2.5-3.5 for patients with mechanical heart valves.PLATELET [id number] 09:49:00 Test Item Value Reference Range Interpretation Comments PLATELET COUNT (BEAKER) (test code 94 K/CU MM 150-450 L = 756) BLOOD GAS, [id number] 09:47:00 Test Item Value Reference Range Interpretation Comments PH ARTERIAL (BEAKER) (test code = 7.47 7.35-7.45 H 383) PCO2 ARTERIAL (BEAKER) (test code 38 mmHg 35-45 = 384) PO2 ARTERIAL (BEAKER) (test code = 259 mmHg 80-90 H 385) O2 SATURATION ARTERIAL (BEAKER) 99.6 % 96.0-97.0 H (test code = 386) HCO3 ARTERIAL (BEAKER) (test code 27 mmol/L -29 = 388) BASE EXCESS ARTERIAL (BEAKER) 3.2 mmol/L -2.0-3.0 H (test code = 387) PATIENT TEMPERATURE (BEAKER) (test 36.9 C code = 1818) FIO2 (BEAKER) (test code = 1819) 40.0 % CALCIUM, [id number] 09:46:00 Test Item Value Reference Range Interpretation Comments CALCIUM IONIZED (BEAKER) (test 1.12 mmol/L 1.12-1.27 code = 698) PH, BLOOD (BEAKER) (test code = 7.47 1810) HEPARIN ASSAY - [id number] 08:21:00 Test Item Value Reference Range Interpretation Comments UNFRACTIONATED HEPARIN-ANTI 10A < u/ml 0.30-0.70 L (BEAKER) (test code = 1606) Recommendations for Monitoring Unfractionated Heparin Therapeutic Range: 0.3- 0.7 u/mL with continuous IV infusionLACTATE DEHYDROGENASE (LDH)2018-01-12 07:40:00 Test Item Value Reference Range Interpretation Comments LACTATE DEHYDROGENASE (BEAKER) (test 3247 U/L 125-220 H code = 635) [id number] 07:38:00 Test Item Value Reference Range Interpretation Comments MAGNESIUM (BEAKER) (test code = 2.3 mg/dL 1.6-2.6 627) [id number] 07:38:00 Test Item Value Reference Range Interpretation Comments GLUCOSE RANDOM (BEAKER) (test code 217 mg/dL 70-105 H = 652) LACTIC ACID, ARTERIAL, WHOLE [id number] 07:27:00 Test Item Value Reference Range Interpretation Comments LACTATE BLOOD ARTERIAL (2) 1.4 mmol/L 0.5-2.2 (BEAKER) (test code = 2874) Effective 01/04/2016: Units/Reference Range ChangeNew: 0.5-2.2 mmol/L Previous: 5-20 mg/dLSpecimen slightly ictericGLUCOSE-STAT [id number] 06:55:00 Test Item Value Reference Range Interpretation Comments GLUCOSE RANDOM (BEAKER) (test code 212 mg/dL 70-110 H = 652) BLOOD GAS, [id number] 06:55:00 Test Item Value Reference Range Interpretation [...] (test code = 1819) 40.0 % POTASSIUM-STAT [id number] 06:52:00 Test Item Value Reference Range Interpretation Comments POTASSIUM (BEAKER) (test code = 4.8 meq/L 3.6-5.5 379) BLOOD GAS, [id number] 06:43:00 Test Item Value Reference Range Interpretation [...] 100.0 % RAD, CHEST, 1 VIEW, NON [id number] 06:14:00Reason for exam:- >impella/ECMO/intubationShould this be performed [...] Taylor Verified Date/Time: 01/12/2018 06:14:29 Reading Location: [facility] Transitional Reading Room LACTATE DEHYDROGENASE (LDH)2018-01-12 05:03:00 Test Item Value Reference Range Interpretation Comments LACTATE DEHYDROGENASE (BEAKER) (test 3014 U/L 125-220 H code = 635) HEPATIC FUNCTION [id number] 05:03:00 Test Item Value Reference Range Interpretation [...] 1544 U/L 6-55 H 347) Specimen slightly [id number] 05:01:00 Test Item Value Reference Range Interpretation Comments PHOSPHORUS (BEAKER) (test code = 5.0 mg/dL 2.3-4.7 H 604) [id number] 05:01:00 Test Item Value Reference Range Interpretation Comments MAGNESIUM (BEAKER) (test code = 2.1 mg/dL 1.6-2.6 627) [id number] 05:01:00 Test Item Value Reference Range Interpretation Comments CALCIUM (BEAKER) (test code = 697) 8.5 mg/dL 8.4-10.2 BASIC METABOLIC [id number] 05:01:00 Test Item Value Reference Range Interpretation [...] TS. Specimen slightly ictericLACTIC ACID, ARTERIAL, WHOLE [id number] 04:42:00 Test Item Value Reference Range Interpretation Comments LACTATE BLOOD ARTERIAL (2) 1.5 mmol/L 0.5-2.2 (BEAKER) (test code = 2874) Effective 01/04/2016: Units/Reference Range ChangeNew: 0.5-2.2 mmol/L Previous: 5-20 mg/dLSpecimen slightly [id number] 04:38:00 Test Item Value Reference Range Interpretation Comments FIBRINOGEN LEVEL (BEAKER) (test 252 mg/dl 225-434 code = 658) [id number] 04:38:00 Test Item Value Reference Range Interpretation Comments PARTIAL THROMBOPLASTIN TIME 54.6 seconds 22.5-36.0 H (BEAKER) (test code = 760) CBC W/PLT COUNT & AUTO [id number] 04:37:00 Test Item Value Reference Range Interpretation [...] PERCENT (BEAKER) (test code = 2801) PROTHROMBIN [id number] 04:37:00 Test Item Value Reference Range Interpretation Comments PROTIME (BEAKER) (test code = 19.9 seconds 11.7-14.7 H 759) INR (BEAKER) (test code = 370) 1.7 <=5.9 RECOMMENDED COUMADIN/WARFARIN INR THERAPY RANGESSTANDARD DOSE: 2.0 - 3.0 Includes: PROPHYLAXIS forvenous thrombosis, systemic embolization; TREATMENT for venous thrombosis and/or pulmonary embolus.HIGH RISK: Target INR is 2.5-3.5 for patients with mechanical heart valves.CALCIUM, [id number] 04:31:00 Test Item Value Reference Range Interpretation Comments CALCIUM IONIZED (BEAKER) (test 1.12 mmol/L 1.12-1.27 code = 698) PH, BLOOD (BEAKER) (test code = 7.42 1810) BLOOD GAS, [id number] 04:30:00 Test Item Value Reference Range Interpretation [...] (test code = 1819) 40.0 % PLATELET [id number] 04:23:00 Test Item Value Reference Range Interpretation Comments PLATELET COUNT (BEAKER) (test 110 K/CU MM 150-450 L code = 756) OXYGEN SATURATION, [id number] 04:14:00 Test Item Value Reference Range Interpretation Comments O2 SATURATION (MEASURED) (BEAKER) 79.7 % (test code = 1455) [id number] 02:54:00 Test Item Value Reference Range Interpretation Comments PARTIAL THROMBOPLASTIN TIME 134.3 seconds 22.5-36.0 H (BEAKER) (test code = 760) [id number] 02:25:00 Test Item Value Reference Range Interpretation Comments PARTIAL THROMBOPLASTIN TIME 94.0 seconds 22.5-36.0 H (BEAKER) (test code = 760) BLOOD GAS, [id number] 01:56:00 Test Item Value Reference Range Interpretation [...] (test code = 1819) 40.0 % GLUCOSE-STAT [id number] 01:53:00 Test Item Value Reference Range Interpretation Comments GLUCOSE RANDOM (BEAKER) (test code 201 mg/dL 70-110 H = 652) POTASSIUM-STAT [id number] 01:52:00 Test Item Value Reference Range Interpretation Comments POTASSIUM (BEAKER) (test code = 4.9 meq/L 3.6-5.5 379) LACTIC ACID, ARTERIAL, WHOLE [id number] 01:18:00 Test Item Value Reference Range Interpretation Comments LACTATE BLOOD ARTERIAL (2) 2.0 mmol/L 0.5-2.2 (BEAKER) (test code = 2874) Effective 01/04/2016: Units/Reference Range ChangeNew: 0.5-2.2 mmol/L Previous: 5-20 mg/dLSpecimen slightly [id number] 01:18:00 Test Item Value Reference Range Interpretation Comments POTASSIUM (BEAKER) (test code = 5.1 meq/L 3.5-5.1 379) [id number] 01:18:00 Test Item Value Reference Range Interpretation Comments GLUCOSE RANDOM (BEAKER) (test code 194 mg/dL 70-105 H = 652) PROTHROMBIN [id number] 01:15:00 Test Item Value Reference Range Interpretation Comments PROTIME (BEAKER) (test code = 21.2 seconds 11.7-14.7 H 759) INR (BEAKER) (test code = 370) 1.8 <=5.9 RECOMMENDED COUMADIN/WARFARIN INR THERAPY RANGESSTANDARD DOSE: 2.0 - 3.0 Includes: PROPHYLAXIS forvenous thrombosis, systemic embolization; TREATMENT for venous thrombosis and/or pulmonary embolus.HIGH RISK: Target INR is 2.5-3.5 for patients with mechanical heart valves.[id number] 01:15:00 Test Item Value Reference Range Interpretation Comments FIBRINOGEN LEVEL (BEAKER) (test 233 mg/dl 225-434 code = 658) PLATELET [id number] 01:01:00 Test Item Value Reference Range Interpretation Comments PLATELET COUNT (BEAKER) (test code 84 K/CU MM 150-450 L = 756) BLOOD GAS, [id number] 01:00:00 Test Item Value Reference Range Interpretation [...] (test code = 1819) 40.0 % CALCIUM, [id number] 01:00:00 Test Item Value Reference Range Interpretation [...] 0.0-5.0 (BEAKER) (test code = 1414) GLUCOSE-STAT [id number] 23:53:00 Test Item Value Reference Range Interpretation Comments GLUCOSE RANDOM (BEAKER) (test code 182 mg/dL 70-110 H = 652) BLOOD GAS, [id number] 23:52:00 Test Item Value Reference Range Interpretation [...] FIO2 (BEAKER) (test code = 1819) 40 [id number] 23:05:00 Test Item Value Reference Range Interpretation Comments PARTIAL THROMBOPLASTIN TIME > seconds 22.5-36.0 HH (BEAKER) (test code = 760) BLOOD GAS, [id number] 23:01:00 Test Item Value Reference Range Interpretation [...] (BEAKER) (test code = 1819) 100.0 % [id number] 22:46:00 Test Item Value Reference Range Interpretation Comments FIBRINOGEN LEVEL (BEAKER) (test 223 mg/dl 225-434 L code = 658) PROTHROMBIN [id number] 22:45:00 Test Item Value Reference Range Interpretation Comments PROTIME (BEAKER) (test code = 23.0 seconds 11.7-14.7 H 759) INR (BEAKER) (test code = 370) 2.0 <=5.9 RECOMMENDED COUMADIN/WARFARIN INR THERAPY RANGESSTANDARD DOSE: 2.0 - 3.0 Includes: PROPHYLAXIS forvenous thrombosis, systemic embolization; TREATMENT for venous thrombosis and/or pulmonary embolus.HIGH RISK: Target INR is 2.5-3.5 for patients with mechanical heart valves.BLOOD GAS, [id number] 22:22:00 Test Item Value Reference Range Interpretation [...] (test code = 1819) 40.0 % CALCIUM, [id number] 22:21:00 Test Item Value Reference Range Interpretation Comments CALCIUM IONIZED (BEAKER) (test 1.05 mmol/L 1.12-1.27 L code = 698) PH, BLOOD (BEAKER) (test code = 7.67 1810) PLATELET [id number] 22:21:00 Test Item Value Reference Range Interpretation Comments PLATELET COUNT (BEAKER) (test code 71 K/CU MM 150-450 L = 756) GLUCOSE-STAT [id number] 22:20:00 Test Item Value Reference Range Interpretation Comments GLUCOSE RANDOM (BEAKER) (test code 189 mg/dL 70-110 H = 652) POTASSIUM-STAT [id number] 22:19:00 Test Item Value Reference Range Interpretation [...] 2133 U/L 125-220 H code = 635) [id number] 20:55:00 Test Item Value Reference Range Interpretation Comments POTASSIUM (BEAKER) (test code = 5.4 meq/L 3.5-5.1 H 379) [id number] 20:55:00 Test Item Value Reference Range Interpretation Comments MAGNESIUM (BEAKER) (test code = 1.6 mg/dL 1.6-2.6 627) [id number] 20:55:00 Test Item Value Reference Range Interpretation Comments PHOSPHORUS (BEAKER) (test code = 2.9 mg/dL 2.3-4.7 604) GLUCOSE-STAT [id number] 20:31:00 Test Item Value Reference Range Interpretation Comments GLUCOSE RANDOM (BEAKER) (test code 166 mg/dL 70-110 H = 652) POTASSIUM-STAT [id number] 20:30:00 Test Item Value Reference Range Interpretation Comments POTASSIUM (BEAKER) (test code = 5.2 meq/L 3.6-5.5 379) BLOOD GAS, [id number] 20:30:00 Test Item Value Reference Range Interpretation [...] code = 1819) 40.0 % OXYGEN SATURATION, [id number] 18:46:00 Test Item Value Reference Range Interpretation Comments O2 SATURATION (MEASURED) (BEAKER) 81.5 % (test code = 1455) RAD, CHEST, 1 VIEW, NON [id number] 18:27:00Reason for exam:->impella/ECMO placementShould this be performed [...] effusion again demonstrated. No pneumothorax. Signed: Pedro Xieeport Verified Date/Time: 01/11/2018 18:27:33 Reading Location: [facility] B1 [id number] Ortho Consult Reading Room [id number] 18:11:00 Test Item Value Reference Range Interpretation Comments PARTIAL THROMBOPLASTIN TIME > seconds 22.5-36.0 HH (BEAKER) (test code = 760) LACTATE DEHYDROGENASE (LDH)2018-01-11 18:09:00 Test Item Value Reference Range Interpretation Comments LACTATE DEHYDROGENASE 1590 U/L 125-220 H Specim en slightly (BEAKER) (test code = hemoly zed 635) BASIC METABOLIC [id number] 18:08:00 Test Item Value Reference Range Interpretation [...] S NOT APPLICABLE FOR DIALYSIS PATIEN TS. [id number] 17:54:00 Test Item Value Reference Range Interpretation Comments MAGNESIUM (BEAKER) 1.8 mg/dL 1.6-2.6 Specimen slightly (test code = 627) hemolyzed [id number] 17:54:00 Test Item Value Reference Range Interpretation Comments PHOSPHORUS (BEAKER) 4.6 mg/dL 2.3-4.7 Specimen slightly (test code = 604) hemolyzed LACTIC ACID, ARTERIAL, WHOLE [id number] 17:53:00 Test Item Value Reference Range Interpretation Comments LACTATE BLOOD 10.8 mmol/L 0.5-2.2 H Specimen sligh tly ARTERIAL (2) (BEAKER) hemoly zed (test code = 2874) Effective 01/04/2016: Units/Reference Range ChangeNew: 0.5-2.2 mmol/L Previous: 5-20 mg/mOF-[id number] 17:46:00 Test Item Value Reference Range Interpretation [...] exclusion of thrombosis is within 95-100% range. [id number] 17:46:00 Test Item Value Reference Range Interpretation Comments FIBRINOGEN LEVEL (BEAKER) (test 201 mg/dl 225-434 L code = 658) PROTHROMBIN [id number] 17:45:00 Test Item Value Reference Range Interpretation Comments PROTIME (BEAKER) (test code = 24.4 seconds 11.7-14.7 H 759) INR (BEAKER) (test code = 370) 2.2 <=5.9 RECOMMENDED COUMADIN/WARFARIN INR THERAPY RANGESSTANDARD DOSE: 2.0 - 3.0 Includes: PROPHYLAXIS forvenous thrombosis, systemic embolization; TREATMENT for venous thrombosis and/or pulmonary embolus.HIGH RISK: Target INR is 2.5-3.5 for patients with mechanical heart valves.BLOOD GAS, [id number] 17:44:00 Test Item Value Reference Range Interpretation [...] code = 1819) 40.0 % SODIUM NA-STAT [id number] 17:44:00 Test Item Value Reference Range Interpretation Comments SODIUM (BEAKER) (test code = 381) 134 meq/L 135-148 L POTASSIUM-STAT [id number] 17:44:00 Test Item Value Reference Range Interpretation Comments POTASSIUM (BEAKER) (test code = 6.2 meq/L 3.6-5.5 HH 379) GLUCOSE-STAT [id number] 17:44:00 Test Item Value Reference Range Interpretation Comments GLUCOSE RANDOM (BEAKER) (test code 147 mg/dL 70-110 H = 652) HGB/HCT (H&H) - STAT [id number] 17:44:00 Test Item Value Reference Range Interpretation Comments HEMOGLOBIN (BEAKER) (test code = 9.9 g/dL 13.0-16.8 L 410) HEMATOCRIT (BEAKER) (test code = 29.0 % 40.0-50.0 L 411) CALCIUM, [id number] 17:41:00 Test Item Value Reference Range Interpretation Comments CALCIUM IONIZED (BEAKER) (test 1.03 mmol/L 1.12-1.27 L code = 698) PH, BLOOD (BEAKER) (test code = 7.52 1810) OXYGEN SATURATION, [id number] 17:39:00 Test Item Value Reference Range Interpretation Comments O2 SATURATION (MEASURED) (BEAKER) 84.5 % (test code = 1455) CBC W/PLT COUNT & AUTO [id number] 17:37:00 Test Item Value Reference Range Interpretation [...] 0-1 PERCENT (BEAKER) (test code = 2801) [id number] 16:35:00 Test Item Value Reference Range Interpretation Comments ACTIVATED CLOTTING TIME 230 sec TEST ED AT [facility] 6720 (BEAKER) (test code = [place] [address]) [address] [id number] 16:35:00 Test Item Value Reference Range Interpretation Comments ACTIVATED CLOTTING TIME 191 sec TEST ED AT [facility] 6720 (BEAKER) (test code = [place] 441) [address] BLOOD GAS, [id number] 16:20:00 Test Item Value Reference Range Interpretation [...] (test code = 1819) 100 BLOOD GAS, [id number] 16:19:00 Test Item Value Reference Range Interpretation [...] drawn from ECMO circuitLACTIC ACID, ARTERIAL, WHOLE [id number] 14:07:00 Test Item Value Reference Range Interpretation Comments LACTATE BLOOD 13.1 mmol/L 0.5-2.2 H Specimen sligh tly ARTERIAL (2) (BEAKER) hemoly zed (test code = 2874) Effective 01/04/2016: Units/Reference Range ChangeNew: 0.5-2.2 mmol/L Previous: 5-20 mg/dLPROTHROMBIN [id number] 14:01:00 Test Item Value Reference Range Interpretation Comments PROTIME (BEAKER) (test code = 20.9 seconds 11.7-14.7 H 759) INR (BEAKER) (test code = 370) 1.8 <=5.9 RECOMMENDED COUMADIN/WARFARIN INR THERAPY RANGESSTANDARD DOSE: 2.0 - 3.0 Includes: PROPHYLAXIS forvenous thrombosis, systemic embolization; TREATMENT for venous thrombosis and/or pulmonary embolus.HIGH RISK: Target INR is 2.5-3.5 for patients with mechanical heart valves.[id number] 14:01:00 Test Item Value Reference Range Interpretation Comments FIBRINOGEN LEVEL (BEAKER) (test 227 mg/dl 225-434 code = 658) PLATELET [id number] 13:54:00 Test Item Value Reference Range Interpretation Comments PLATELET COUNT (BEAKER) (test 115 K/CU MM 150-450 L code = 756) BLOOD GAS, [id number] 13:47:00 Test Item Value Reference Range Interpretation [...] (test code = 1819) 40.0 % GLUCOSE-STAT [id number] 13:47:00 Test Item Value Reference Range Interpretation Comments GLUCOSE RANDOM (BEAKER) (test code 134 mg/dL 70-110 H = 652) [id number] 12:33:00 Test Item Value Reference Range Interpretation Comments POTASSIUM (BEAKER) (test code = 5.6 meq/L 3.5-5.1 H 379) PRN - repeat glucose levels every 1 hour or as specified by insulin titration orders until glucose level is less than 450 mg/[id number] 12:33:00 Test Item Value Reference Range Interpretation Comments GLUCOSE RANDOM (BEAKER) (test code = 43 mg/dL 70-105 L 652) PRN - repeat glucose levels every 1 hour or as specified by insulin titration orders until glucose level is less than 450 mg/dLBASIC METABOLIC [id number] 11:05:00 Test Item Value Reference Range Interpretation [...] until glucose level is less than 450 mg/[id number] 11:05:00 Test Item Value Reference Range Interpretation Comments GLUCOSE RANDOM (BEAKER) (test code = 34 mg/dL 70-105 LL 652) [id number] 10:44:00 Test Item Value Reference Range Interpretation Comments POTASSIUM (BEAKER) (test code = 5.9 meq/L 3.5-5.1 H 379) HEPATIC FUNCTION [id number] 10:44:00 Test Item Value Reference Range Interpretation [...] Previous: 5-20 mg/dLCBC W/PLT COUNT & AUTO [id number] 10:23:00 Test Item Value Reference Range Interpretation [...] (BEAKER) (test code = 2801) BLOOD GAS, [id number] 10:20:00 Test Item Value Reference Range Interpretation [...] (BEAKER) (test code = 1819) 40.0 % [id number] 09:01:00 Test Item Value Reference Range Interpretation Comments POTASSIUM (BEAKER) (test code = 5.9 meq/L 3.5-5.1 H 379) PRN - repeat glucose levels every 1 hour or as specified by insulin titration orders until glucose level is less than 450 mg/[id number] 09:01:00 Test Item Value Reference Range Interpretation Comments MAGNESIUM (BEAKER) (test code = 1.7 mg/dL 1.6-2.6 627) PRN - repeat glucose levels every 1 hour or as specified by insulin titration orders until glucose level is less than 450 mg/[id number] 09:01:00 Test Item Value Reference Range Interpretation Comments PHOSPHORUS (BEAKER) (test code = 4.7 mg/dL 2.3-4.7 604) PRN - repeat glucose levels every 1 hour or as specified by insulin titration orders until glucose level is less than 450 mg/[id number] 09:01:00 Test Item Value Reference Range Interpretation Comments GLUCOSE RANDOM (BEAKER) (test code = 50 mg/dL 70-105 L 652) PRN - repeat glucose levels every 1 hour or as specified by insulin titration orders until glucose level is less than 450 mg/dLCALCIUM, [id number] 08:47:00 Test Item Value Reference Range Interpretation Comments CALCIUM IONIZED (BEAKER) (test 1.24 mmol/L 1.12-1.27 code = 698) PH, BLOOD (BEAKER) (test code = 7.31 1810) [id number] 08:45:00 Test Item Value Reference Range Interpretation Comments PARTIAL THROMBOPLASTIN TIME 53.7 seconds 22.5-36.0 H (BEAKER) (test code = 760) BLOOD GAS, [id number] 08:41:00 Test Item Value Reference Range Interpretation [...] (test code = 1819) 40.0 % PH, [id number] 08:41:00 Test Item Value Reference Range Interpretation Comments PH ARTERIAL (BEAKER) (test code = 383) 7.31 7.35-7.45 L RAD, CHEST, 1 VIEW, NON [id number] 07:31:00Reason for exam:->s/p cardiac surgeryShould this be [...] and no pneumothorax demonstrated. Signed: Pedro Xie VerifiedDate/Time: 01/11/2018 07:31:38 Reading Location: [address] Consult Reading Room BLOOD GAS, ARTERIAL [...] code = 1819) 40.0 % BASIC METABOLIC [id number] 06:12:00 Test Item Value Reference Range Interpretation [...] NOT APPLICABLE FOR DIALYSIS PATIEN TS. POCT-GLUCOSE [id number] 05:58:00 Test Item Value Reference Range Interpretation Comments POC-GLUCOSE METER 121 mg/dL 70-110 H TESTED AT [facility] 6720 (BEAKER) (test code = [place] 2738) [address] POCT-GLUCOSE [id number] 05:58:00 Test Item Value Reference Range Interpretation Comments POC-GLUCOSE METER 66 mg/dL 70-110 L Will Repea t Test/TESTED (BEAKER) (test code = AT [facility] [address] [place] [address] 1538) [facility] [address] 0 [id number] 05:51:00 Test Item Value Reference Range Interpretation Comments PHOSPHORUS (BEAKER) (test code = 3.5 mg/dL 2.3-4.7 604) [id number] 05:51:00 Test Item Value Reference Range Interpretation Comments MAGNESIUM (BEAKER) (test code = 1.9 mg/dL 1.6-2.6 627) BLOOD GAS, [id number] 05:47:00 Test Item Value Reference Range Interpretation [...] (test code = 1819) 40.0 % POCT-GLUCOSE [id number] 05:27:00 Test Item Value Reference Range Interpretation Comments POC-GLUCOSE METER 112 mg/dL 70-110 H TESTED AT [place] [address] (BEAKER) (test code = F[place] Paul [facility] 1538) [address] POCT-GLUCOSE [id number] 05:27:00 Test Item Value Reference Range Interpretation Comments POC-GLUCOSE METER 106 mg/dL 70-110 [facility] [place] [address] [facility] (test code = MARIA GPR Humberto [facility] 1538) [address] POCT-GLUCOSE [id number] 05:26:00 Test Item Value Reference Range Interpretation Comments POC-GLUCOSE METER 66 mg/dL 70-110 L TESTED AT [place] [address] (BEAKER) (test code = [place] [address] 1538) LACTIC ACID, ARTERIAL, WHOLE [id number] 04:59:00 Test Item Value Reference Range Interpretation Comments LACTATE BLOOD 12.2 mmol/L 0.5-2.2 H Specimen sligh tly ARTERIAL (2) (BEAKER) hemoly zed (test code = 2874) Effective 01/04/2016: Units/Reference Range ChangeNew: 0.5-2.2 mmol/L Previous: 5-20 mg/dLCALCIUM, [id number] 04:57:00 Test Item Value Reference Range Interpretation Comments CALCIUM IONIZED (BEAKER) (test 1.33 mmol/L 1.12-1.27 H code = 698) PH, BLOOD (BEAKER) (test code = 7.30 1810) BLOOD GAS, [id number] 04:57:00 Test Item Value Reference Range Interpretation [...] code = 1819) 45.0 % OXYGEN SATURATION, [id number] 04:56:00 Test Item Value Reference Range Interpretation Comments O2 SATURATION (MEASURED) (BEAKER) 83.2 % (test code = 1455) CBC W/PLT COUNT & AUTO [id number] 04:56:00 Test Item Value Reference Range Interpretation [...] PERCENT (BEAKER) (test code = 2801) CALCIUM, [id number] 03:38:00 Test Item Value Reference Range Interpretation Comments CALCIUM IONIZED (BEAKER) (test 1.32 mmol/L 1.12-1.27 H code = 698) PH, BLOOD (BEAKER) (test code = 7.29 1810) BLOOD GAS, [id number] 03:36:00 Test Item Value Reference Range Interpretation [...] 1819) 50.0 % HGB/HCT (H&H) - STAT [id number] 03:36:00 Test Item Value Reference Range Interpretation Comments HEMOGLOBIN (BEAKER) (test code = 12.5 g/dL 13.0-16.8 L 410) HEMATOCRIT (BEAKER) (test code = 37.0 % 40.0-50.0 L 411) OXYGEN SATURATION, [id number] 03:35:00 Test Item Value Reference Range Interpretation Comments O2 SATURATION (MEASURED) (BEAKER) 80.3 % (test code = 1455) GLUCOSE-STAT [id number] 03:34:00 Test Item Value Reference Range Interpretation Comments GLUCOSE RANDOM (BEAKER) (test code = 91 mg/dL 70-110 652) SODIUM NA-STAT [id number] 03:34:00 Test Item Value Reference Range Interpretation Comments SODIUM (BEAKER) (test code = 381) 137 meq/L 135-148 POTASSIUM-STAT [id number] 03:34:00 Test Item Value Reference Range Interpretation Comments POTASSIUM (BEAKER) (test code = 4.6 meq/L 3.6-5.5 379) BLOOD GAS, [id number] 03:01:00 Test Item Value Reference Range Interpretation [...] 1819) 50.0 % HGB/HCT (H&H) - STAT [id number] 03:01:00 Test Item Value Reference Range Interpretation Comments HEMOGLOBIN (BEAKER) (test code = 12.0 g/dL 13.0-16.8 L 410) HEMATOCRIT (BEAKER) (test code = 35.0 % 40.0-50.0 L 411) POTASSIUM-STAT [id number] 03:00:00 Test Item Value Reference Range Interpretation Comments POTASSIUM (BEAKER) (test code = 5.0 meq/L 3.6-5.5 379) GLUCOSE-STAT [id number] 03:00:00 Test Item Value Reference Range Interpretation Comments GLUCOSE RANDOM (BEAKER) (test code 102 mg/dL 70-110 = 652) SODIUM NA-STAT [id number] 03:00:00 Test Item Value Reference Range Interpretation Comments SODIUM (BEAKER) (test code = 381) 140 meq/L 135-148 LACTIC ACID, ARTERIAL, WHOLE [id number] 01:53:00 Test Item Value Reference Range Interpretation Comments LACTATE BLOOD 9.4 mmol/L 0.5-2.2 H Specimen sligh tly ARTERIAL (2) (BEAKER) hemoly zed (test code = 2874) Effective 01/04/2016: Units/Reference Range ChangeNew: 0.5-2.2 mmol/L Previous: 5-20 mg/dLGLUCOSE-STAT [id number] 01:27:00 Test Item Value Reference Range Interpretation Comments GLUCOSE RANDOM (BEAKER) (test code = 99 mg/dL 70-110 652) BLOOD GAS, [id number] 01:27:00 Test Item Value Reference Range Interpretation [...] 1819) 100.0 % HGB/HCT (H&H) - STAT [id number] 01:27:00 Test Item Value Reference Range Interpretation Comments HEMOGLOBIN (BEAKER) (test code = 12.7 g/dL 13.0-16.8 L 410) HEMATOCRIT (BEAKER) (test code = 37.0 % 40.0-50.0 L 411) SODIUM NA-STAT [id number] 01:26:00 Test Item Value Reference Range Interpretation Comments SODIUM (BEAKER) (test code = 381) 141 meq/L 135-148 POTASSIUM-STAT [id number] 01:26:00 Test Item Value Reference Range Interpretation Comments POTASSIUM (BEAKER) (test code = 3.6 meq/L 3.6-5.5 379) [id number] 00:38:00 Test Item Value Reference Range Interpretation Comments PARTIAL THROMBOPLASTIN TIME 47.4 seconds 22.5-36.0 H (BEAKER) (test code = 760) [id number] 00:35:00 Test Item Value Reference Range Interpretation Comments POTASSIUM (BEAKER) 3.5 meq/L 3.5-5.1 Specimen slightly (test code = 379) hemolyzed CALCIUM, [id number] 00:25:00 Test Item Value Reference Range Interpretation [...] = 1414) RAD, CHEST, 1 VIEW, NON [id number] 22:36:00Reason for exam:->s/p BronchoscopyFINAL REPORT CLINICAL INDICATION: Post bronchoscopy Comparison: Same date [id number] hours There is improved aeration of the right upper lobe. No pneumothorax is present. Hazy opacity in the right upper lobe and in the retrocardiac lower lungs may reflect atelectasis but pneumonitis should be excluded clinically. The cardiomediastinal contours are stable. Support lines are stable. Signed: Kellen Parra MDReport Verified Date/Time: 01/10/2018 22:36:29 Reading Location: [address] Reading Room C METABOLIC [id number] 22:01:00 Test Item Value Reference Range Interpretation [...] S NOT APPLICABLE FOR DIALYSIS PATIEN TS. [id number] 22:00:00 Test Item Value Reference Range Interpretation Comments MAGNESIUM (BEAKER) 2.4 mg/dL 1.6-2.6 Specimen slightly (test code = 627) hemolyzed [id number] 22:00:00 Test Item Value Reference Range Interpretation Comments PHOSPHORUS (BEAKER) 3.2 mg/dL 2.3-4.7 Specimen slightly (test code = 604) hemolyzed LACTIC ACID, ARTERIAL, WHOLE [id number] 21:57:00 Test Item Value Reference Range Interpretation Comments LACTATE BLOOD 10.2 mmol/L 0.5-2.2 H Specimen sligh tly ARTERIAL (2) (BEAKER) hemoly zed (test code = 2874) Effective 01/04/2016: Units/Reference Range ChangeNew: 0.5-2.2 mmol/L Previous: 5-20 mg/dLCBC W/PLT COUNT & AUTO [id number] 21:51:00 Test Item Value Reference Range Interpretation [...] % 0-1 PERCENT (BEAKER) (test code = 2802) [id number] 21:49:00 Test Item Value Reference Range Interpretation Comments PARTIAL THROMBOPLASTIN TIME 41.2 seconds 22.5-36.0 H (BEAKER) (test code = 760) PROTHROMBIN [id number] 21:48:00 Test Item Value Reference Range Interpretation Comments PROTIME (BEAKER) (test code = 19.8 seconds 11.7-14.7 H 759) INR (BEAKER) (test code = 370) 1.7 <=5.9 RECOMMENDED COUMADIN/WARFARIN INR THERAPY RANGESSTANDARD DOSE: 2.0 - 3.0 Includes: PROPHYLAXIS forvenous thrombosis, systemic embolization; TREATMENT for venous thrombosis and/or pulmonary embolus.HIGH RISK: Target INR is 2.5-3.5 for patients with mechanical heart valves.[id number] 21:48:00 Test Item Value Reference Range Interpretation Comments FIBRINOGEN LEVEL (BEAKER) (test 221 mg/dl 225-434 L code = 658) CALCIUM, [id number] 21:33:00 Test Item Value Reference Range Interpretation Comments CALCIUM IONIZED (BEAKER) (test 1.54 mmol/L 1.12-1.27 H code = 698) PH, BLOOD (BEAKER) (test code = 7.33 1810) OXYGEN SATURATION, [id number] 21:33:00 Test Item Value Reference Range Interpretation Comments O2 SATURATION (MEASURED) (BEAKER) 67.1 % (test code = 1455) GLUCOSE-STAT [id number] 21:32:00 Test Item Value Reference Range Interpretation Comments GLUCOSE RANDOM (BEAKER) (test code = 98 mg/dL 70-110 652) SODIUM NA-STAT [id number] 21:32:00 Test Item Value Reference Range Interpretation Comments SODIUM (BEAKER) (test code = 381) 139 meq/L 135-148 POTASSIUM-STAT [id number] 21:32:00 Test Item Value Reference Range Interpretation Comments POTASSIUM (BEAKER) (test code = 3.6 meq/L 3.6-5.5 379) BLOOD GAS, [id number] 21:32:00 Test Item Value Reference Range Interpretation [...] 1819) 60.0 % HGB/HCT (H&H) - STAT [id number] 21:32:00 Test Item Value Reference Range Interpretation Comments HEMOGLOBIN (BEAKER) (test code = 8.2 g/dL 13.0-16.8 L 410) HEMATOCRIT (BEAKER) (test code = 24.0 % 40.0-50.0 L 411) RAD, CHEST, 1 VIEW, NON [id number] 21:32:00Reason for exam:->s/p cardiac surgeryShould this be [...] the level of the clavicles. Right IJ Douglas-Moni catheter terminatesin the distal right pulmonary artery. The soft tissues and osseous structures are intact. IMPRESSION: Postoperative changes with right upper lobe collapse, likely secondary to mucous plugging. Supporting lines and tubes as described above. Note position of the Douglas-Moni catheter. Signed: Moiz Musa MDReport Verified Date/Time: 01/10/2018 21:32:31 Reading Location: [address] Consult Reading Room THROMBOELASTOGRAPH (TEG)2018-01-10 21:01:00 [...] 55.0-65.0 L (test code = 1413) CALCIUM, [id number] 20:42:00 Test Item Value Reference Range Interpretation Comments CALCIUM IONIZED (BEAKER) (test 1.41 mmol/L 1.12-1.27 H code = 698) PH, BLOOD (BEAKER) (test code = 7.41 1810) SODIUM NA-STAT [id number] 20:41:00 Test Item Value Reference Range Interpretation Comments SODIUM (BEAKER) (test code = 381) 138 meq/L 135-148 POTASSIUM-STAT [id number] 20:41:00 Test Item Value Reference Range Interpretation Comments POTASSIUM (BEAKER) (test code = 3.7 meq/L 3.6-5.5 379) BLOOD GAS, [id number] 20:41:00 Test Item Value Reference Range Interpretation [...] (test code = 1819) 100.0 % GLUCOSE-STAT [id number] 20:41:00 Test Item Value Reference Range Interpretation Comments GLUCOSE RANDOM (BEAKER) (test code 120 mg/dL 70-110 H = 652) HGB/HCT (H&H) - STAT [id number] 20:41:00 Test Item Value Reference Range Interpretation Comments HEMOGLOBIN (BEAKER) (test code = 7.8 g/dL 13.0-16.8 L 410) HEMATOCRIT (BEAKER) (test code = 23.0 % 40.0-50.0 L 411) [id number] 20:23:00 Test Item Value Reference Range Interpretation Comments FIBRINOGEN LEVEL (BEAKER) (test 239 mg/dl 225-434 code = 658) [id number] 20:23:00 Test Item Value Reference Range Interpretation Comments PARTIAL THROMBOPLASTIN TIME 38.6 seconds 22.5-36.0 H (BEAKER) (test code = 760) PROTHROMBIN [id number] 20:22:00 Test Item Value Reference Range Interpretation Comments PROTIME (BEAKER) (test code = 21.6 seconds 11.7-14.7 H 759) INR ([facility]) (test code = 370) 1.9 <=5.9 RECOMMENDED COUMADIN/WARFARIN INR THERAPY RANGESSTANDARD DOSE: 2.0 - 3.0 Includes: PROPHYLAXIS forvenous thrombosis, systemic embolization; TREATMENT for venous thrombosis and/or pulmonary embolus.HIGH RISK: Target INR is 2.5-3.5 for patients with mechanical heart valves.[id number] 20:16:00 Test Item Value Reference Range Interpretation Comments ACTIVATED CLOTTING TIME 114 sec TEST ED AT [place] [address] ([facility]) (test code = FOST[place] Paul [facility] 441) [address] [id number] 20:16:00 Test Item Value Reference Range Interpretation Comments ACTIVATED CLOTTING TIME 499 sec TEST ED AT [place] [address] ([facility]) (test code = [place] [address]) [address] [id number] 20:16:00 Test Item Value Reference Range Interpretation Comments ACTIVATED CLOTTING TIME 483 sec TEST ED AT [place] [address] ([facility]) (test code = [place] 441) [address] [id number] 20:16:00 Test Item Value Reference Range Interpretation Comments ACTIVATED CLOTTING TIME 538 sec TEST ED AT [place] [address] ([facility]) (test code = [place] [address]) [id number] 20:16:00 Test Item Value Reference Range Interpretation Comments ACTIVATED CLOTTING TIME 615 sec TEST ED AT [place] [address] ([facility]) (test code = [place] [address]) [id number] 20:16:00 Test Item Value Reference Range Interpretation Comments ACTIVATED CLOTTING TIME 692 sec TEST ED AT [place] [address] ([facility]) (test code = [place] [address]) [id number] 20:16:00 Test Item Value Reference Range Interpretation Comments ACTIVATED CLOTTING TIME 428 sec TEST ED AT [place] [address] ([facility]) (test code = [place] [address]) [id number] 20:16:00 Test Item Value Reference Range Interpretation Comments ACTIVATED CLOTTING TIME 373 sec TEST ED AT [place] [address] ([facility]) (test code = [place] [address]) [id number] 20:16:00 Test Item Value Reference Range Interpretation Comments ACTIVATED CLOTTING TIME 455 sec TEST ED AT [place] [address] ([facility]) (test code = [place] [address]) [id number] 20:16:00 Test Item Value Reference Range Interpretation Comments ACTIVATED CLOTTING TIME 494 sec TEST ED AT [place] [address] ([facility]) (test code = [place] [address]) [address] [id number] 20:16:00 Test Item Value Reference Range Interpretation Comments ACTIVATED CLOTTING TIME 527 sec TEST ED AT [place] [address] ([facility]) (test code = [place] [address]) [address] [id number] 20:16:00 Test Item Value Reference Range Interpretation Comments ACTIVATED CLOTTING TIME 610 sec TEST ED AT [place] [address] ([facility]) (test code = [place] [address]) [address] [id number] 20:16:00 Test Item Value Reference Range Interpretation Comments ACTIVATED CLOTTING TIME 576 sec TEST ED AT [place] [address] ([facility]) (test code = [place] [address]) [address] [id number] 20:16:00 Test Item Value Reference Range Interpretation Comments ACTIVATED CLOTTING TIME 384 sec TEST ED AT [facility] 6720 (BEAKER) (test code = [place] [address]) [address] PLATELET [id number] 20:08:00 Test Item Value Reference Range Interpretation [...] 0.0-5.0 (BEAKER) (test code = 1414) CALCIUM, [id number] 19:59:00 Test Item Value Reference Range Interpretation Comments CALCIUM IONIZED (BEAKER) (test 1.39 mmol/L 1.12-1.27 H code = 698) PH, BLOOD (BEAKER) (test code = 7.37 1810) BLOOD GAS, [id number] 19:58:00 Test Item Value Reference Range Interpretation [...] (test code = 1819) 100.0 % GLUCOSE-STAT [id number] 19:58:00 Test Item Value Reference Range Interpretation Comments GLUCOSE RANDOM (BEAKER) (test code 143 mg/dL 70-110 H = 652) HGB/HCT (H&H) - STAT [id number] 19:58:00 Test Item Value Reference Range Interpretation Comments HEMOGLOBIN (BEAKER) (test code = 8.7 g/dL 13.0-16.8 L 410) HEMATOCRIT (BEAKER) (test code = 26.0 % 40.0-50.0 L 411) SODIUM NA-STAT [id number] 19:57:00 Test Item Value Reference Range Interpretation Comments SODIUM (BEAKER) (test code = 381) 140 meq/L 135-148 POTASSIUM-STAT [id number] 19:57:00 Test Item Value Reference Range Interpretation Comments POTASSIUM (BEAKER) (test code = 3.9 meq/L 3.6-5.5 379) [id number] 19:29:00 Test Item Value Reference Range Interpretation Comments PARTIAL THROMBOPLASTIN TIME > seconds 22.5-36.0 HH (BEAKER) (test code = 760) [id number] 19:16:00 Test Item Value Reference Range Interpretation Comments FIBRINOGEN LEVEL (BEAKER) (test 271 mg/dl 225-434 code = 658) PROTHROMBIN [id number] 19:15:00 Test Item Value Reference Range Interpretation Comments PROTIME (BEAKER) (test code = 21.3 seconds 11.7-14.7 H 759) INR (BEAKER) (test code = 370) 1.8 <=5.9 RECOMMENDED COUMADIN/WARFARIN INR THERAPY RANGESSTANDARD DOSE: 2.0 - 3.0 Includes: PROPHYLAXIS forvenous thrombosis, systemic embolization; TREATMENT for venous thrombosis and/or pulmonary embolus.HIGH RISK: Target INR is 2.5-3.5 for patients with mechanical heart valves.PLATELET [id number] 19:06:00 Test Item Value Reference Range Interpretation Comments PLATELET COUNT (BEAKER) (test code 54 K/CU MM 150-450 L = 756) BLOOD GAS, [id number] 18:49:00 Test Item Value Reference Range Interpretation [...] 1819) 100.0 % HGB/HCT (H&H) - STAT [id number] 18:44:00 Test Item Value Reference Range Interpretation Comments HEMOGLOBIN (BEAKER) (test code = 10.1 g/dL 13.0-16.8 L 410) HEMATOCRIT (BEAKER) (test code = 30.0 % 40.0-50.0 L 411) SODIUM NA-STAT [id number] 18:43:00 Test Item Value Reference Range Interpretation Comments SODIUM (BEAKER) (test code = 381) 137 meq/L 135-148 POTASSIUM-STAT [id number] 18:43:00 Test Item Value Reference Range Interpretation Comments POTASSIUM (BEAKER) (test code = 5.0 meq/L 3.6-5.5 379) GLUCOSE-STAT [id number] 18:43:00 Test Item Value Reference Range Interpretation Comments GLUCOSE RANDOM (BEAKER) (test code 187 mg/dL 70-110 H = 652) SODIUM NA-STAT [id number] 18:22:00 Test Item Value Reference Range Interpretation Comments SODIUM (BEAKER) (test code = 381) 140 meq/L 135-148 POTASSIUM-STAT [id number] 18:22:00 Test Item Value Reference Range Interpretation Comments POTASSIUM (BEAKER) (test code = 4.7 meq/L 3.6-5.5 379) BLOOD GAS, [id number] 18:22:00 Test Item Value Reference Range Interpretation [...] (test code = 1819) 60.0 % GLUCOSE-STAT [id number] 18:22:00 Test Item Value Reference Range Interpretation Comments GLUCOSE RANDOM (BEAKER) (test code 209 mg/dL 70-110 H = 652) HGB/HCT (H&H) - STAT [id number] 18:22:00 Test Item Value Reference Range Interpretation Comments HEMOGLOBIN (BEAKER) (test code = 10.2 g/dL 13.0-16.8 L 410) HEMATOCRIT (BEAKER) (test code = 30.0 % 40.0-50.0 L 411) BLOOD GAS, [id number] 17:57:00 Test Item Value Reference Range Interpretation [...] (test code = 1819) 65.0 % GLUCOSE-STAT [id number] 17:57:00 Test Item Value Reference Range Interpretation Comments GLUCOSE RANDOM (BEAKER) (test code 198 mg/dL 70-110 H = 652) HGB/HCT (H&H) - STAT [id number] 17:57:00 Test Item Value Reference Range Interpretation Comments HEMOGLOBIN (BEAKER) (test code = 10.3 g/dL 13.0-16.8 L 410) HEMATOCRIT (BEAKER) (test code = 30.0 % 40.0-50.0 L 411) SODIUM NA-STAT [id number] 17:56:00 Test Item Value Reference Range Interpretation Comments SODIUM (BEAKER) (test code = 381) 138 meq/L 135-148 POTASSIUM-STAT [id number] 17:56:00 Test Item Value Reference Range Interpretation Comments POTASSIUM (BEAKER) (test code = 4.7 meq/L 3.6-5.5 379) BLOOD GAS, [id number] 17:28:00 Test Item Value Reference Range Interpretation [...] (test code = 1819) 65.0 % GLUCOSE-STAT [id number] 17:28:00 Test Item Value Reference Range Interpretation Comments GLUCOSE RANDOM (BEAKER) (test code 223 mg/dL 70-110 H = 652) HGB/HCT (H&H) - STAT [id number] 17:28:00 Test Item Value Reference Range Interpretation Comments HEMOGLOBIN (BEAKER) (test code = 10.1 g/dL 13.0-16.8 L 410) HEMATOCRIT (BEAKER) (test code = 30.0 % 40.0-50.0 L 411) SODIUM NA-STAT [id number] 17:27:00 Test Item Value Reference Range Interpretation Comments SODIUM (BEAKER) (test code = 381) 140 meq/L 135-148 POTASSIUM-STAT [id number] 17:27:00 Test Item Value Reference Range Interpretation [...] code = 1414) HGB/HCT (H&H) - STAT [id number] 17:01:00 Test Item Value Reference Range Interpretation Comments HEMOGLOBIN (BEAKER) (test code = 10.1 g/dL 13.0-16.8 L 410) HEMATOCRIT (BEAKER) (test code = 30.0 % 40.0-50.0 L 411) BLOOD GAS, [id number] 17:00:00 Test Item Value Reference Range Interpretation [...] (test code = 1819) 65.0 % GLUCOSE-STAT [id number] 17:00:00 Test Item Value Reference Range Interpretation Comments GLUCOSE RANDOM (BEAKER) (test code 243 mg/dL 70-110 H = 652) SODIUM NA-STAT [id number] 16:59:00 Test Item Value Reference Range Interpretation Comments SODIUM (BEAKER) (test code = 381) 139 meq/L 135-148 POTASSIUM-STAT [id number] 16:59:00 Test Item Value Reference Range Interpretation Comments POTASSIUM (BEAKER) (test code = 4.6 meq/L 3.6-5.5 379) [id number] 16:47:00 Test Item Value Reference Range Interpretation Comments PARTIAL THROMBOPLASTIN TIME > seconds 22.5-36.0 HH (BEAKER) (test code = 760) BLOOD GAS, [id number] 16:18:00 Test Item Value Reference Range Interpretation [...] (test code = 1819) 65.0 % GLUCOSE-STAT [id number] 16:18:00 Test Item Value Reference Range Interpretation Comments GLUCOSE RANDOM (BEAKER) (test code 279 mg/dL 70-110 H = 652) HGB/HCT (H&H) - STAT [id number] 16:18:00 Test Item Value Reference Range Interpretation Comments HEMOGLOBIN (BEAKER) (test code = 7.0 g/dL 13.0-16.8 L 410) HEMATOCRIT (BEAKER) (test code = 21.0 % 40.0-50.0 L 411) SODIUM NA-STAT [id number] 16:17:00 Test Item Value Reference Range Interpretation Comments SODIUM (BEAKER) (test code = 381) 137 meq/L 135-148 POTASSIUM-STAT [id number] 16:17:00 Test Item Value Reference Range Interpretation Comments POTASSIUM (BEAKER) (test code = 4.6 meq/L 3.6-5.5 379) [id number] 16:15:00 Test Item Value Reference Range Interpretation Comments FIBRINOGEN LEVEL (BEAKER) (test 255 mg/dl 225-434 code = 658) PROTHROMBIN [id number] 16:14:00 Test Item Value Reference Range Interpretation Comments PROTIME (BEAKER) (test code = 20.2 seconds 11.7-14.7 H 759) INR (BEAKER) (test code = 370) 1.7 <=5.9 RECOMMENDED COUMADIN/WARFARIN INR THERAPY RANGESSTANDARD DOSE: 2.0 - 3.0 Includes: PROPHYLAXIS forvenous thrombosis, systemic embolization; TREATMENT for venous thrombosis and/or pulmonary embolus.HIGH RISK: Target INR is 2.5-3.5 for patients with mechanical heart valves.PLATELET [id number] 16:02:00 Test Item Value Reference Range Interpretation Comments PLATELET COUNT (BEAKER) (test code 57 K/CU MM 150-450 L = 756) BLOOD GAS, [id number] 15:51:00 Test Item Value Reference Range Interpretation [...] (test code = 1819) 100.0 % GLUCOSE-STAT [id number] 15:51:00 Test Item Value Reference Range Interpretation Comments GLUCOSE RANDOM (BEAKER) (test code 190 mg/dL 70-110 H = 652) HGB/HCT (H&H) - STAT [id number] 15:51:00 Test Item Value Reference Range Interpretation Comments HEMOGLOBIN (BEAKER) (test code = 7.6 g/dL 13.0-16.8 L 410) HEMATOCRIT (BEAKER) (test code = 22.0 % 40.0-50.0 L 411) POTASSIUM-STAT [id number] 15:51:00 Test Item Value Reference Range Interpretation Comments POTASSIUM (BEAKER) (test code = 5.6 meq/L 3.6-5.5 H 379) CALCIUM, [id number] 15:51:00 Test Item Value Reference Range Interpretation Comments CALCIUM IONIZED (BEAKER) (test 0.82 mmol/L 1.12-1.27 L code = 698) PH, BLOOD (BEAKER) (test code = 7.45 1810) SODIUM NA-STAT [id number] 15:50:00 Test Item Value Reference Range Interpretation Comments SODIUM (BEAKER) (test code = 381) 139 meq/L 135-148 BLOOD GAS, [id number] 15:43:00 Test Item Value Reference Range Interpretation [...] (test code = 1819) 75.0 % GLUCOSE-STAT [id number] 15:43:00 Test Item Value Reference Range Interpretation Comments GLUCOSE RANDOM (BEAKER) (test code 189 mg/dL 70-110 H = 652) HGB/HCT (H&H) - STAT [id number] 15:43:00 Test Item Value Reference Range Interpretation Comments HEMOGLOBIN (BEAKER) (test code = 8.0 g/dL 13.0-16.8 L 410) HEMATOCRIT (BEAKER) (test code = 24.0 % 40.0-50.0 L 411) POTASSIUM-STAT [id number] 15:43:00 Test Item Value Reference Range Interpretation Comments POTASSIUM (BEAKER) (test code = 5.7 meq/L 3.6-5.5 H 379) SODIUM NA-STAT [id number] 15:42:00 Test Item Value Reference Range Interpretation Comments SODIUM (BEAKER) (test code = 381) 136 meq/L 135-148 SODIUM NA-STAT [id number] 15:06:00 Test Item Value Reference Range Interpretation Comments SODIUM (BEAKER) (test code = 381) 139 meq/L 135-148 BLOOD GAS, [id number] 15:06:00 Test Item Value Reference Range Interpretation [...] (test code = 1819) 60.0 % POTASSIUM-STAT [id number] 15:06:00 Test Item Value Reference Range Interpretation Comments POTASSIUM (BEAKER) (test code = 5.8 meq/L 3.6-5.5 H 379) GLUCOSE-STAT [id number] 15:06:00 Test Item Value Reference Range Interpretation Comments GLUCOSE RANDOM (BEAKER) (test code 192 mg/dL 70-110 H = 652) HGB/HCT (H&H) - STAT [id number] 15:06:00 Test Item Value Reference Range Interpretation Comments HEMOGLOBIN (BEAKER) (test code = 8.2 g/dL 13.0-16.8 L 410) HEMATOCRIT (BEAKER) (test code = 24.0 % 40.0-50.0 L 411) POTASSIUM-STAT [id number] 14:41:00 Test Item Value Reference Range Interpretation Comments POTASSIUM (BEAKER) (test code = 5.2 meq/L 3.6-5.5 379) BLOOD GAS, [id number] 14:41:00 Test Item Value Reference Range Interpretation [...] code = 1819) 60.0 % SODIUM NA-STAT [id number] 14:41:00 Test Item Value Reference Range Interpretation Comments SODIUM (BEAKER) (test code = 381) 134 meq/L 135-148 L GLUCOSE-STAT [id number] 14:41:00 Test Item Value Reference Range Interpretation Comments GLUCOSE RANDOM (BEAKER) (test code 195 mg/dL 70-110 H = 652) HGB/HCT (H&H) - STAT [id number] 14:41:00 Test Item Value Reference Range Interpretation Comments HEMOGLOBIN (BEAKER) (test code = 8.2 g/dL 13.0-16.8 L 410) HEMATOCRIT (BEAKER) (test code = 24.0 % 40.0-50.0 L 411) BLOOD GAS, [id number] 14:10:00 Test Item Value Reference Range Interpretation [...] (test code = 1819) 60.0 % GLUCOSE-STAT [id number] 14:10:00 Test Item Value Reference Range Interpretation Comments GLUCOSE RANDOM (BEAKER) (test code 177 mg/dL 70-110 H = 652) HGB/HCT (H&H) - STAT [id number] 14:10:00 Test Item Value Reference Range Interpretation Comments HEMOGLOBIN (BEAKER) (test code = 8.5 g/dL 13.0-16.8 L 410) HEMATOCRIT (BEAKER) (test code = 25.0 % 40.0-50.0 L 411) SODIUM NA-STAT [id number] 14:09:00 Test Item Value Reference Range Interpretation Comments SODIUM (BEAKER) (test code = 381) 136 meq/L 135-148 POTASSIUM-STAT [id number] 14:09:00 Test Item Value Reference Range Interpretation Comments POTASSIUM (BEAKER) (test code = 5.0 meq/L 3.6-5.5 379) SODIUM NA-STAT [id number] 13:39:00 Test Item Value Reference Range Interpretation Comments SODIUM (BEAKER) (test code = 381) 136 meq/L 135-148 POTASSIUM-STAT [id number] 13:39:00 Test Item Value Reference Range Interpretation Comments POTASSIUM (BEAKER) (test code = 5.0 meq/L 3.6-5.5 379) BLOOD GAS, [id number] 13:39:00 Test Item Value Reference Range Interpretation [...] (test code = 1819) 60.0 % GLUCOSE-STAT [id number] 13:39:00 Test Item Value Reference Range Interpretation Comments GLUCOSE RANDOM (BEAKER) (test code 179 mg/dL 70-110 H = 652) HGB/HCT (H&H) - STAT [id number] 13:39:00 Test Item Value Reference Range Interpretation Comments HEMOGLOBIN (BEAKER) (test code = 8.1 g/dL 13.0-16.8 L 410) HEMATOCRIT (BEAKER) (test code = 24.0 % 40.0-50.0 L 411) CALCIUM, [id number] 12:31:00 Test Item Value Reference Range Interpretation Comments CALCIUM IONIZED (BEAKER) (test 1.09 mmol/L 1.12-1.27 L code = 698) PH, BLOOD (BEAKER) (test code = 7.45 1810) GLUCOSE-STAT [id number] 12:30:00 Test Item Value Reference Range Interpretation Comments GLUCOSE RANDOM (BEAKER) (test code = 93 mg/dL 70-110 652) SODIUM NA-STAT [id number] 12:30:00 Test Item Value Reference Range Interpretation Comments SODIUM (BEAKER) (test code = 381) 140 meq/L 135-148 POTASSIUM-STAT [id number] 12:30:00 Test Item Value Reference Range Interpretation Comments POTASSIUM (BEAKER) (test code = 3.9 meq/L 3.6-5.5 379) BLOOD GAS, [id number] 12:30:00 Test Item Value Reference Range Interpretation [...] 1819) 100.0 % HGB/HCT (H&H) - STAT [id number] 12:30:00 Test Item Value Reference Range Interpretation Comments HEMOGLOBIN (BEAKER) (test code = 9.3 g/dL 13.0-16.8 L 410) HEMATOCRIT (BEAKER) (test code = 27.0 % 40.0-50.0 L 411) HEMOGLOBIN [id number] 10:02:00 Test Item Value Reference Range Interpretation Comments HEMOGLOBIN A1C (BEAKER) (test code = 4.4 % 4.3-6.1 368) POCT-GLUCOSE [id number] 09:52:00 Test Item Value Reference Range Interpretation Comments POC-GLUCOSE METER 115 mg/dL 70-110 H TESTED AT [facility] 6720 (BEAKER) (test code = [place] 1538) [address] PROTHROMBIN [id number] 02:41:00 Test Item Value Reference Range Interpretation Comments PROTIME (BEAKER) (test code = 14.9 seconds 11.7-14.7 H 759) INR (BEAKER) (test code = 370) 1.2 <=5.9 RECOMMENDED COUMADIN/WARFARIN INR THERAPY RANGESSTANDARD DOSE: 2.0 - 3.0 Includes: PROPHYLAXIS forvenous thrombosis, systemic embolization; TREATMENT for venous thrombosis and/or pulmonary embolus.HIGH RISK: Target INR is 2.5-3.5 for patients with mechanical heart valves.BASIC METABOLIC [id number] 00:29:00 Test Item Value Reference Range Interpretation [...] S NOT APPLICABLE FOR DIALYSIS PATIEN TS. [id number] 00:22:00 Test Item Value Reference Range Interpretation Comments MAGNESIUM (BEAKER) 2.5 mg/dL 1.6-2.6 Specimen slightly (test code = 627) hemolyzed [id number] 00:14:00 Test Item Value Reference Range Interpretation Comments PARTIAL THROMBOPLASTIN TIME 38.6 seconds 22.5-36.0 H (BEAKER) (test code = 760) CBC W/PLT COUNT & AUTO [id number] 00:07:00 Test Item Value Reference Range Interpretation [...] 0-1 PERCENT (BEAKER) (test code = 2801) [id number] 17:03:00 Test Item Value Reference Range Interpretation Comments THYROID STIMULATING HORMONE 1.30 uIU/mL 0.35-4.94 (BEAKER) (test code = 772) HEPATIC FUNCTION [id number] 16:43:00 Test Item Value Reference Range Interpretation [...] 69 U/L 6-55 H 347) BASIC METABOLIC [id number] 15:47:00 Test Item Value Reference Range Interpretation [...] S NOT APPLICABLE FOR DIALYSIS PATIEN TS. [id number] 14:57:00 Test Item Value Reference Range Interpretation Comments PARTIAL THROMBOPLASTIN TIME 82.9 seconds 22.5-36.0 H (BEAKER) (test code = 760) CBC W/PLT COUNT & AUTO [id number] 14:48:00 Test Item Value Reference Range Interpretation [...] PERCENT (BEAKER) (test code = 2801) POCT-GLUCOSE [id number] 11:13:00 Test Item Value Reference Range Interpretation Comments POC-GLUCOSE METER 207 mg/dL 70-110 H [facility] [place] [address] [facility] (test code = [place] 1538) [address] POCT-GLUCOSE [id number] 08:08:00 Test Item Value Reference Range Interpretation Comments POC-GLUCOSE METER 124 mg/dL 70-110 H [facility]ED AT [facility] (test code = [place] 1538) [address] [id number] 06:51:00 Test Item Value Reference Range Interpretation Comments PARTIAL THROMBOPLASTIN TIME 54.6 seconds 22.5-36.0 H (BEAKER) (test code = 760) HEPATITIS B SURFACE [id number] 00:28:00 Test Item Value Reference Range Interpretation Comments HEPATITIS B SURFACE ANTIGEN (2) Nonreactive Nonreactive (BEAKER) (test code = 2585) [id number] 00:06:00 Test Item Value Reference Range Interpretation Comments PHOSPHORUS (BEAKER) (test code = 3.2 mg/dL 2.3-4.7 604) [id number] 00:03:00 Test Item Value Reference Range Interpretation Comments PARTIAL THROMBOPLASTIN TIME 36.0 seconds 22.5-36.0 (BEAKER) (test code = 760) CBC W/PLT COUNT & AUTO [id number] 23:45:00 Test Item Value Reference Range Interpretation [...] % 0-1 PERCENT (BEAKER) (test code = 1908) POCT-GLUCOSE [id number] 17:39:00 Test Item Value Reference Range Interpretation Comments POC-GLUCOSE METER 116 mg/dL 70-110 H TESTED AT [facility] [address] ([facility]) (test code = [place] 1538) [address] [id number] 15:35:00 Test Item Value Reference Range Interpretation Comments THYROID STIMULATING HORMONE 1.39 uIU/mL 0.35-4.94 (BEAKER) (test code = 772) [id number] 15:06:00 Test Item Value Reference Range Interpretation Comments PARTIAL THROMBOPLASTIN TIME 31.0 seconds 22.5-36.0 (BEAKER) (test code = 760) Prior to initiating heparinPROTHROMBIN TIME/[id number] 15:05:00 Test Item Value Reference Range Interpretation Comments PROTIME (BEAKER) (test code = 14.4 seconds 11.7-14.7 759) INR (BEAKER) (test code = 370) 1.1 <=5.9 RECOMMENDED COUMADIN/WARFARIN INR THERAPY RANGESSTANDARD DOSE: 2.0 - 3.0 Includes: PROPHYLAXIS forvenous thrombosis, systemic embolization; TREATMENT for venous thrombosis and/or pulmonary embolus.HIGH RISK: Target INR is 2.5-3.5 for patients with mechanical heart valves.PLATELET [id number] 14:52:00 Test Item Value Reference Range Interpretation Comments PLATELET COUNT (JARROD) (test 109 K/CU MM 150-450 L code = 756) POCT-GLUCOSE [id number] 12:00:00 Test Item Value Reference Range Interpretation Comments POC-GLUCOSE METER 186 mg/dL 70-110 H TESTED AT [facility] 6720 (JARROD) (test code = [place] 1538) [address] RAD, CHEST, 1 VIEW, NON [id number] 11:43:00Reason for exam:->SOB, known severe MRShould this be performed at the bedside?->YesFINAL REPORT Chest one view AP 01/08/2018 11:42 AM CLINICAL INDICATION: SOB, kno wn severe MR COMPARISON: 12/02/2017 IMPRESSION: Cardiomediastinal contours are stable. There is mild pulmonary edema. There are trace bilateral pleural effusions. Signed: Yevgeniy Anderson Verified Date/Time: 01/08/2018 11:43:52 Reading Location: [facility] Radiology Reading Room Electronic ally signed by: YEVGENIY ANDERSON M.D. on 01/08/2018 11:43 AMRAPID CK-MB 2017-12-02 10:04:00 Test Item Value Reference Range Interpretation Comments RAPID CKMB (JARROD) (test code = 1.5 ng/mL 0.0-4.3 1482) RAPID TROPONIN [id number] 10:04:00 Test Item Value Reference Range Interpretation Comments RAPID TROPONIN I (JARROD) (test code < ng/mL <0.05 = 1483) RAD, CHEST, 2 [id number] 10:00:00Reason for exam:->Chest PainFINAL REPORT Chest two views Discussion: Heart size upper limits of normal. Bilateral interstitial edema with small bilateral effusions. No pneumothorax. Bones and soft tissues unremarkable. Signed: Rhea Colindres Verified Date/Time: 12/02/2017 10:00:39 Reading Location:[facility] Radiology Reading Room B-TYPE NATRIURETIC FACTOR (BNP)2017-12-02 09:56:00 Test Item Value Reference Range Interpretation Comments B-TYPE NATRIURETIC PEPTIDE 1990 pg/mL 0-100 H (BEAKER) (test code = 700) BASIC METABOLIC [id number] 09:52:00 Test Item Value Reference Range Interpretation [...] S NOT APPLICABLE FOR DIALYSIS PATIEN TS. [id number] 09:51:00 Test Item Value Reference Range Interpretation Comments MAGNESIUM (BEAKER) (test code = 1.7 mg/dL 1.5-3.0 627) CBC W/PLT COUNT & AUTO [id number] 09:50:00 Test Item Value Reference Range Interpretation [...] (BEAKER) (test code = 417) CD4/CD8 Ratio [id number] 08:04:00 Test Item Value Reference Range Interpretation Comments Absolute CD 4 [place] (test code 188 /uL 359-1519 L = 432373) % CD 4 Pos. Lymph. (test code = 37.6 % 30.8-58.5 N 687687) Abs. CD 8 Suppressor (test code 183 /uL 109-897 N = 908041) % CD 8 Pos. Lymph. (test code = 36.6 % 12.0-35.5 H 723714) CD4/CD8 Ratio (test code = 1.03 0.92-3.72 N 574030) WBC (test code = 953554) 5.0 x10E3/uL 3.4-10.8 N RBC (test code = 308119) 3.00 x10E6/uL 4.14-5.80 L Hemoglobin (test code = 995882) 9.6 g/dL 13.0-17.7 L Hematocrit (test code = 684588) 27.6 % 37.5-51.0 L MCV (test code = 413291) 92 fL 79-97 N MCH (test code = 364192) 32.0 pg 26.6-33.0 N MCHC (test code = 104964) 34.8 g/dL 31.5-35.7 N RDW (test code = 118064) 15.5 % 12.3-15.4 H Platelets (test code = 412594) 113 x10E3/uL 150-379 L Neutrophils (test code = 84 % Not Estab. N 896624) Lymphs (test code = 291934) 9 % Not Estab. N Monocytes (test code = 904439) 6 % Not Estab. N Eos (test code = 218399) 1 % Not Estab. N Basos (test code = 192743) 0 % Not Estab. N Neutrophils (Absolute) (test 4.2 x10E3/uL 1.4-7.0 N code = 647269) Lymphs (Absolute) (test code = 0.5 x10E3/uL 0.7-3.1 L 586650) Monocytes(Absolute) (test code 0.3 x10E3/uL 0.1-0.9 N = 197913) Eos (Absolute) (test code = 0.0 x10E3/uL 0.0-0.4 N 658837) Baso (Absolute) (test code = 0.0 x10E3/uL 0.0-0.2 N 933438) Immature Granulocytes (test 0 % Not Estab. N code = 790555) Immature Grans (Abs) (test code 0.0 x10E3/uL 0.0-0.1 N = 714996) Culture, Blood [id number] 08:42:00Specimen: BloodCollected: 11/19/2017 00:21 Status: Final Last Updated: 11/24/2017 08:42 Culture Result (Final) (Final) No Growth After 5 DaysCulture, Blood [id number] 08:42:00 Specimen: BloodCollected: 11/18/2017 20:30 Status: Final Last Updated: 11/24/2017 08:42 Culture Result (Final) (Final) No Growth After 5 DaysPOC Glucose, [id number] 11:51:00 Test Item Value Reference Range Interpretation Comments POC Glucose (test 148 mg/dL 70-115 H Notify RN or MDIf you code = POCGLUC) consider you r patient critically ill, the [facility] Accu-Chek InformII metershould not be used for Glucose determinations. Draw a venous Glucose and send to the Main Lab for Analysis. CK [id number] 07:42:00 Test Item Value Reference Range Interpretation Comments CK (test code = CK) na U/L 39-308 N CKMB (test code = CKMB) 4.0 ng/mL 0.0-4.9 N CKMB% (test code = CKMBP) 0.0 % 0.0-3.4 N [id number] 07:39:00 Test Item Value Reference Range Interpretation Comments NT ProBnp (test code = PBNP) >05527 pg/mL 0-124 H Troponin [id number] 07:18:00 Test Item Value Reference Range Interpretation Comments Troponin T (test code = MADHAV) 0.103 ng/mL 0.000-0.090 H Lactate [id number] 07:18:00 Test Item Value Reference Range Interpretation Comments LDH (test code = LDH) 271 U/L 135-225 H POC Glucose, [id number] 06:50:00 Test Item Value Reference Range Interpretation Comments POC Glucose (test 154 mg/dL 70-115 H Notify RN or MDIf you code = POCGLUC) consider you r patient critically ill, the [facility] Accu-Chek InformII metershould not be used for Glucose determinations. Draw a venous Glucose and send to the Main Lab for Analysis. CK [id number] 01:08:00 Test Item Value Reference Range Interpretation Comments CK (test code = CK) na U/L 39-308 N CKMB (test code = CKMB) 3.6 ng/mL 0.0-4.9 N CKMB% (test code = CKMBP) 0.0 % 0.0-3.4 N Troponin [id number] 01:08:00 Test Item Value Reference Range Interpretation Comments Troponin T (test code = MADHAV) 0.106 ng/mL 0.000-0.090 H XR CHEST 1 [id number] 21:02:01CLINICAL INFORMATION: Vascular congestion.Dictation Location: 16Comparison: 11/18/2017 showed perihilar and lower lobe opacities. Technique: Portable AP 195 hoursFINDINGS: Monitoring electrodes overlie the chest wall. Cardiomegaly withincreasing central vascular interstitial prominence with bibasilaropacities and effusions. No interval bone changes.IMPRESSION: Changes could indicate worsening cardiac decompensation orfluid overload.POC Glucose, [id number] 20:15:00 Test Item Value Reference Range Interpretation Comments POC Glucose (test 139 mg/dL 70-115 H If you con interior wirer your code = POCGLUC) patient crit ically ill, the [facility] Accu- Chek InformII meters hould not be used for Glu cose determinations. Draw a venous Glucose and send to the Main Lab for Analysis. POC Glucose, [id number] 16:52:00 Test Item Value Reference Range Interpretation Comments POC Glucose (test 123 mg/dL 70-115 H If you con interior wirer your code = POCGLUC) patient crit ically ill, the [facility] Accu- Chek InformII meters hould not be used for Glu cose determinations. Draw a venous Glucose and send to the Main Lab for Analysis. POC Glucose, [id number] 12:04:00 Test Item Value Reference Range Interpretation Comments POC Glucose (test 140 mg/dL 70-115 H If you con interior wirer your code = POCGLUC) patient crit ically ill, the [facility] Accu- Chek InformII meters hould not be used for Glu cose determinations. Draw a venous Glucose and send to the Main Lab for Analysis. POC Glucose, [id number] 08:01:00 Test Item Value Reference Range Interpretation Comments POC Glucose (test 126 mg/dL 70-115 H If you con interior wirer your code = POCGLUC) patient crit ically ill, the [facility] Accu- Chek InformII meters hould not be used for Glu cose determinations. Draw a venous Glucose and send to the Main Lab for Analysis. CK [id number] 06:03:00 Test Item Value Reference Range Interpretation Comments CK (test code = CK) na U/L 39-308 N CKMB (test code = CKMB) 2.8 ng/mL 0.0-4.9 N CKMB% (test code = CKMBP) 0.0 % 0.0-3.4 N Basic Metabolic [id number] 05:51:00 Test Item Value Reference Range Interpretation [...] the National Kidney Foundation,http ://nkd ep.nih.gov Magnesium, [id number] 05:51:00 Test Item Value Reference Range Interpretation Comments Magnesium (test code = MG) 1.9 mg/dL 1.7-2.5 N [id number] 05:51:00 Test Item Value Reference Range Interpretation Comments Phosphorus (test code = PO4) 3.8 mg/dL 2.70-4.50 N [id number] 05:51:00 Test Item Value Reference Range Interpretation Comments NT ProBnp (test code = PBNP) >28626 pg/mL 0-124 H Troponin [id number] 05:51:00 Test Item Value Reference Range Interpretation Comments Troponin T (test code = MADHAV) 0.126 ng/mL 0.000-0.090 H CBC with [id number] 05:34:00 Test Item Value Reference Range Interpretation [...] code = ALYMPH) 0.4 K/cumm 0.5-4.6 L [place] Abs (test code = AMONO) 0.6 K/cumm 0.0-1.2 N Eos Abs (test code = AEOS) 0.13 K/cumm 0.00-0.74 N Baso Abs (test code = ABASO) 0.0 K/cumm 0.00-0.21 N CK [id number] 18:39:00 Test Item Value Reference Range Interpretation Comments CK (test code = CK) HIDE U/L 39-308 N CKMB (test code = CKMB) 3.2 ng/mL 0.0-4.9 N CKMB% (test code = CKMBP) HIDE % 0.0-3.4 N Troponin [id number] 18:39:00 Test Item Value Reference Range Interpretation Comments Troponin T (test code = MADHAV) 0.126 ng/mL 0.000-0.090 H Hep B Surface [id number] 18:39:00 Test Item Value Reference Range Interpretation Comments Hep Bs Ag (test code = HBSAG) Nonreactive Non-Reactive A POC Glucose, [id number] 16:47:00 Test Item Value Reference Range Interpretation Comments POC Glucose (test 143 mg/dL 70-115 H If you con interior wirer your code = POCGLUC) patient crit ically ill, the [facility] Accu- Chek InformII meters hould not be used for Glu cose determinations. Draw a venous Glucose and send to the Main Lab for Analysis. XR CHEST 1 [id number] 08:18:18EXAM: Portable AP chest x-rayLOCATION: R16 INDICATION: CoughCOMPARISON: 11/07/2017FINDINGS:The cardiacsilhouette is stable enlargement. There are increasinginterstitial opacities, most evident in the per ihilar regions and lowerlobes. There is blunting of the costophrenic angles bilaterally. Thereis no discernible pneumothorax.IMPRESSION:Increasing perihilar and bilateral lower lobe opacities compared to theprior exam dated 11/07/2017. Findings may represent pulmonary edema orpneumonia in the appropriate clinical setting.Comprehensive Metabolic [id number] 08:05:00 Test Item Value Reference Range Interpretation [...] the National Kidney Foundation,http ://nkd ep.nih.gov CK [id number] 08:05:00 Test Item Value Reference Range Interpretation Comments CK (test code = CK) 149 U/L 39-308 N Troponin [id number] 08:02:00 Test Item Value Reference Range Interpretation Comments Troponin T (test code = MADHAV) 0.114 ng/mL 0.000-0.090 H [id number] 08:02:00 Test Item Value Reference Range Interpretation Comments NT ProBnp (test code = PBNP) >49167 pg/mL 0-124 H CBC with [id number] 07:53:00 Test Item Value Reference Range Interpretation [...] code = ALYMPH) 0.9 K/cumm 0.5-4.6 N [place] Abs (test code = AMONO) 0.4 K/cumm 0.0-1.2 N Eos Abs (test code = AEOS) 0.11 K/cumm 0.00-0.74 N Baso Abs (test code = ABASO) 0.0 K/cumm 0.00-0.21 N XR CHEST 1 [id number] 21:38:09EXAM: CHEST ONE VIEWINDICATION: CoughCOMPARISON: October 06, 2017TECHNIQUE: AP view of the chest.FINDINGS: The cardiomediastinal silhouette is unchanged. Mild congestive changesbilaterally. No pneumothorax or pleural effusion is identified. Theosseous structures are unremarkable.IMPRESSION: Diffuse congestive changes bilaterally.LOCATION: R16US DUPLX EXT VEINS [facility], [id number] 20:09:34AFTER HOURS SERVICE ON: 10/06/2017 8:09 PMRIGHT Lower Extremity Venous Duplex Doppler ExaminationLocation Code E01Soqzluw: SwellingTechnique: Real-time castillo scale, Doppler spectral analysis [...] Lower Extremity Venous Duplex Doppler ExaminationLocation Code V78Vucly ry: SwellingTechnique: Real-time castillo scale, Doppler spectral [...] of DVT in the imaged vessels.Comprehensive Metabolic [id number] 17:40:00 Test Item Value Reference Range Interpretation [...] National Kidney Foundation,http ://nkd ep.nih.gov CBC with [id number] 17:15:00 Test Item Value Reference Range Interpretation [...] code = ALYMPH) 1.3 K/cumm 0.5-4.6 N [place] Abs (test code = AMONO) 0.6 K/cumm 0.0-1.2 N Eos Abs (test code = AEOS) 0.12 K/cumm 0.00-0.74 N Baso Abs (test code = ABASO) 0.0 K/cumm 0.00-0.21 N XR CHEST 1 [id number] 16:56:42CHEST 1 VIEW: [id number]: coughCOMPARISON:Sep 24, 2017FINDINGS:The heart is enlarged. There is engorgement of the central pulmonaryvasculature. There are patchy bibasilar areas of infiltrate oratelectasis with bilateral effusions. No pneumothorax is present. IMPRESSION: 1. Patchy areas of atelectasis or infiltrate in the lung bases withsmall bilateral effusions and vascular congestion most likely secondaryto CHF.Culture, Blood [id number] 14:58:00Specimen: BloodCollected: 09/24/2017 13:05 Status: Final Last Updated: 09/29/2017 14:58 (1) ER Bed 1 Culture Result (Final) (Final) No Growth After 5 DaysCulture, Blood [id number] 14:58:00Specimen: BloodCollected: 09/24/2017 12:50 Status: Final Last Updated: 09/29/2017 14:58 (1) ER Bed 1 Culture Result (Final) (Final) No Growth After 5 DaysPOC Glucose, [id number] 10:54:00 Test Item Value Reference Range Interpretation Comments POC Glucose (test 168 mg/dL 70-115 H If you con interior wirer your code = POCGLUC) patient crit ically ill, the [facility] Accu- Chek InformII meters hould not be used for Glu cose determinations. Draw a venous Glucose and send to the Main Lab for Analysis. POC Glucose, [id number] 07:16:00 Test Item Value Reference Range Interpretation Comments POC Glucose (test 143 mg/dL 70-115 H If you con interior wirer your code = POCGLUC) patient crit ically ill, the [facility] Accu- Chek InformII meters hould not be used for Glu cose determinations. Draw a venous Glucose and send to the Main Lab for Analysis. CBC with [id number] 07:15:00 Test Item Value Reference Range Interpretation [...] code = ALYMPH) 1.3 K/cumm 0.5-4.6 N [place] Abs (test code = AMONO) 0.7 K/cumm 0.0-1.2 N Eos Abs (test code = AEOS) 0.07 K/cumm 0.00-0.74 N Baso Abs (test code = ABASO) 0.0 K/cumm 0.00-0.21 N Magnesium, [id number] 07:03:00 Test Item Value Reference Range Interpretation Comments Magnesium (test code = MG) 2.0 mg/dL 1.7-2.5 N Basic Metabolic [id number] 07:03:00 Test Item Value Reference Range Interpretation [...] National Kidney Foundation,http ://nkd ep.nih.gov POC Glucose, [id number] 21:40:00 Test Item Value Reference Range Interpretation Comments POC Glucose (test 129 mg/dL 70-115 H If you con interior wirer your code = POCGLUC) patient crit ically ill, the [facility] Accu- Chek InformII meters hould not be used for Glu cose determinations. Draw a venous Glucose and send to the Main Lab for Analysis. Hep B Surface [id number] 18:36:00 Test Item Value Reference Range Interpretation Comments Hep Bs Ag (test code = HBSAG) Nonreactive Non-Reactive A POC Glucose, [id number] 10:51:00 Test Item Value Reference Range Interpretation Comments POC Glucose (test 216 mg/dL 70-115 H If you con interior wirer your code = POCGLUC) patient crit ically ill, the [facility] Accu- Chek InformII meters hould not be used for Glu cose determinations. Draw a venous Glucose and send to the Main Lab for Analysis. POC Glucose, [id number] 07:57:00 Test Item Value Reference Range Interpretation Comments POC Glucose (test 164 mg/dL 70-115 H If you con interior wirer your code = POCGLUC) patient crit ically ill, the [facility] Accu- Chek InformII meters hould not be used for Glu cose determinations. Draw a venous Glucose and send to the Main Lab for Analysis. POC Glucose, [id number] 19:47:00 Test Item Value Reference Range Interpretation Comments POC Glucose (test 140 mg/dL 70-115 H Notify RN or MDIf you code = POCGLUC) consider you r patient critically ill, the [facility] Accu-Chek InformII metershould not be used for Glucose determinations. Draw a venous Glucose and send to the Main Lab for Analysis. Troponin [id number] 19:36:00 Test Item Value Reference Range Interpretation Comments Troponin T (test code = MADHAV) 0.121 ng/mL 0.000-0.090 H CK [id number] 19:25:00 Test Item Value Reference Range Interpretation Comments CK (test code = CK) 160 U/L 39-308 N The valu e HIDE originally released by [facility] on 09/25/2017 19:1 2 waschanged to 1 60 by [email or web address] on 09/25 19:24 CKMB (test code = 3.0 ng/mL 0.0-4.9 N CKMB) CKMB% (test code = 1.9 % 0.0-3.4 N The value HIDE originally CKMBP) released by [facility] on 09/25/2017 19:1 2 waschanged to 1 .9 by [employer] on 09/25 19:24 POC Glucose, [id number] 16:42:00 Test Item Value Reference Range Interpretation Comments POC Glucose (test 123 mg/dL 70-115 H If you con interior wirer your code = POCGLUC) patient crit ically ill, the [facility] Accu- Chek InformII meters hould not be used for Glu cose determinations. Draw a venous Glucose and send to the Main Lab for Analysis. POC Glucose, [id number] 12:09:00 Test Item Value Reference Range Interpretation Comments POC Glucose (test 141 mg/dL 70-115 H If you con interior wirer your code = POCGLUC) patient crit ically ill, the [facility] Accu- Chek InformII meters hould not be used for Glu cose determinations. Draw a venous Glucose and send to the Main Lab for Analysis. Hep B Surface [id number] 07:59:00 Test Item Value Reference Range Interpretation Comments Hep Bs Ag (test code = HBSAG) Nonreactive Non-Reactive A CK [id number] 07:43:00 Test Item Value Reference Range Interpretation Comments CK (test code = CK) n/a U/L 39-308 N CKMB (test code = CKMB) 2.4 ng/mL 0.0-4.9 N CKMB% (test code = CKMBP) 0.0 % 0.0-3.4 N Troponin [id number] 07:38:00 Test Item Value Reference Range Interpretation Comments Troponin T (test code = MADHAV) 0.134 ng/mL 0.000-0.090 H Thyroid Stimulating Hormone (TSH)2017-09-25 07:38:00 Test Item Value Reference Range Interpretation Comments TSH (test code = TSH) 1.10 mIU/mL 0.270-4.200 N [id number] 07:38:00 Test Item Value Reference Range Interpretation Comments Phosphorus (test code = PO4) 3.4 mg/dL 2.70-4.50 N Comprehensive Metabolic [id number] 07:38:00 Test Item Value Reference Range Interpretation [...] the National Kidney Foundation,http ://nkd ep.nih.gov Magnesium, [id number] 07:38:00 Test Item Value Reference Range Interpretation Comments Magnesium (test code = MG) 2.0 mg/dL 1.7-2.5 N CK [id number] 07:31:00 Test Item Value Reference Range Interpretation Comments CK (test code = CK) 159 U/L 39-308 N Lipid [id number] 07:31:00 Test Item Value Reference Range Interpretation Comments Cholesterol (test 118 mg/dL 0-200 N code = CHOL) Triglycerides (test 170 mg/dL 9-200 N code = TRIG) HDL (test code = 49 mg/dL 40-60 N HDL) Chol/HDL (test code 2.4 Ratio 0.0-5.0 N = CHOLPHDL) LDL, Calculated 35 0-130 N (NOTE)RISK O F HEART (test code = LDLC) DISEASEPu blished by German Heart AssociationAnal yte Optim al Boderline Increased RiskC HOL <200 200-239 >240TRI G <150 150-199 >200HDL Male: >60 <40HDL Female: >60 <50 LDL < 100 130-15 9 >160 LDL NEAR OPTIMAL IS 100- 129 VLDL (test code = 34 mg/dL 5-40 N VLDL) LDL/HDL (test code = 1 LDLPHDL) Glycosylated [id number] 07:24:00 Test Item Value Reference Range Interpretation Comments HBA1c (test code = HBA1C) 5.0 % 4.8-5.9 N CBC with [id number] 07:20:00 Test Item Value Reference Range Interpretation [...] code = ALYMPH) 0.8 K/cumm 0.5-4.6 N [place] Abs (test code = AMONO) 0.5 K/cumm 0.0-1.2 N Eos Abs (test code = AEOS) 0.10 K/cumm 0.00-0.74 N Baso Abs (test code = ABASO) 0.0 K/cumm 0.00-0.21 N POC Glucose, [id number] 07:03:00 Test Item Value Reference Range Interpretation Comments POC Glucose (test 147 mg/dL 70-115 H If you con interior wirer your code = POCGLUC) patient crit ically ill, the [facility] Accu- Chek InformII meters hould not be used for Glu cose determinations. Draw a venous Glucose and send to the Main Lab for Analysis. POC Glucose, [id number] 22:05:00 Test Item Value Reference Range Interpretation Comments POC Glucose (test 134 mg/dL 70-115 H If you con interior wirer your code = POCGLUC) patient crit ically ill, the [facility] Accu- Chek InformII meters hould not be used for Glu cose determinations. Draw a venous Glucose and send to the Main Lab for Analysis. Blood Gas+Lytes+Glu+Ca+Hgb+Hct+[id number] 18:31:00 Test Item Value Reference Range Interpretation [...] (test code = alokrblvverqnscrit COMMENT) liz Pierre@ 40831/23figrrt Puncture Site (test code = Radial. R PUNSITE) Drawing Tech ID (test code gianfranco fi = DRAWTECH) iPAP (test code = IPAP) 0 cmH2O Respiratory Rate (test code 0 = RESP RATE) Lactic Acid, Blood Gas 0.4 mmol/L (test code = BGLA) CT CHEST W/O [id number] 16:48:03CT CHEST W/O CONTRASTLOCATION CODE: R16 HISTORY: [...] pneumothorax or suspicious pulmonary nodule is seen.Heart a nd mediastinum: The heart is mildly enlargedNo pericardial [...] bilateral axillary, prevascular, andparatracheal lymph nodes.Influenza B [id number] 14:36:00Specimen: NasalCollected: 09/24/2017 14:04 Status: Final Last [...] Culture of negative samples is recommended.Influenza A [id number] 14:34:00Specimen: NasalCollected: 09/24/2017 14:04 Status: Final Last [...] Culture of negative samples is recommended.Comprehensive Metabolic [id number] 13:54:00 Test Item Value Reference Range Interpretation [...] the National Kidney Foundation,http ://nkd ep.nih.gov Troponin [id number] 13:54:00 Test Item Value Reference Range Interpretation Comments Troponin T (test code = MADHAV) 0.124 ng/mL 0.000-0.090 H [id number] 13:54:00 Test Item Value Reference Range Interpretation Comments NT ProBnp (test code = PBNP) >30837 pg/mL 0-124 H CK [id number] 13:54:00 Test Item Value Reference Range Interpretation Comments CK (test code = CK) 222 U/L 39-308 N CKMB (test code = CKMB) 3.1 ng/mL 0.0-4.9 N CKMB% (test code = CKMBP) 1.4 % 0.0-3.4 N CK [id number] 13:54:00 Test Item Value Reference Range Interpretation Comments CK (test code = CK) 222 U/L 39-308 N Partial Thromboplastin [id number] 13:43:00 Test Item Value Reference Range Interpretation Comments aPTT (test code = PTT) 35.70 seconds 24.39-37.25 N Prothrombin [id number] 13:43:00 Test Item Value Reference Range Interpretation Comments PT (test code = PT) 11.30 seconds 9.78-13.35 N INR (test code = INR) 0.99 Ratio 0.6-1.2 N Lactic Acid [id number] 13:41:00 Test Item Value Reference Range Interpretation Comments Lactic Acid, Bld (test code = LAC) 1.3 mmol/L 0.5-1.9 N CBC with [id number] 13:32:00 Test Item Value Reference Range Interpretation [...] code = ALYMPH) 1.2 K/cumm 0.5-4.6 N [place] Abs (test code = AMONO) 0.6 K/cumm 0.0-1.2 N Eos Abs (test code = AEOS) 0.23 K/cumm 0.00-0.74 N Baso Abs (test code = ABASO) 0.0 K/cumm 0.00-0.21 N XR CHEST 1 [id number] 12:50:14XR CHEST 1 VIEWLOCATION: [id number]: None.INDICATION: CoughDISCUSSION:A single portable chest radiograph was [...]
== END 2021-07-03 01:57 | disposition home or self-care (01) ==
LOC: ER 00:42
DX: I47.1 Supraventricular tachycardia (principal); E11.22 Type 2 diabetes mellitus with diabetic chronic kidney disease; N18.6 End stage renal disease; B20 Human immunodeficiency virus [HIV] disease; C46.0 Kaposi's sarcoma of skin; Z99.2 Dependence on renal dialysis; Z95.4 Presence of other heart-valve replacement; Z79.01 Long term (current) use of anticoagulants
CPT/HCPCS: 36415; 80048; 83735; 84484; 85025; 93005; 99284

== ENCOUNTER 2021-07-15 22:41 | Emergency (ER) | payer OTHER ==
[2021-07-15] MEDS ORDERED: NA CHLORIDE 0.9% 250 ML ONE (23:06)
[2021-07-15 23:18] LABS: Absolute Lymphocytes (CBC) 1.2 K/uL (0.7-4.9); Basophils % 0.7 % (0-1.3); Hematocrit 32.5 % (39.6-49.0); Lymphocytes % 23.8 % (15.3-44.8); MPV 7.2 fL (7.6-11.3); RBC Red Blood Cell Count 3.27 M/uL (4.33-5.43)
[2021-07-15 23:34] LABS: Potassium 4.5 mmol/L (3.5-5.1)
--- NOTE | 2021-07-15 23:53 | ER ---
Nurse's Notes [facility] Name: Salvatore Goldman Age: 66 yrs Sex: Male : 1955 Arrival Date: 07/15/2021 Time: 22:44 Bed 18 Private MD: Diagnosis: Supraventricular tachycardia Presentation: 07/15 22:55 Chief complaint: Patient states: he started feeling his heart "pumping" approx 30 mins bb ago. Coronavirus screen: At this time, the client does not indicate any symptoms associated with coronavirus-19. Ebola Screen: No symptoms or risks identified at this time. Initial Sepsis Screen: Does the patient meet any 2 criteria? No. Patient's initial sepsis screen is negative. Does the patient have a suspected source of infection? No. Patient's initial sepsis screen is negative. Risk Assessment: Do you want to hurt yourself or someone else? Patient reports no desire to harm self or others. Onset of symptoms was July 15, 2021. 22:55 Method Of Arrival: Ambulatory bb 22:55 Acuity: NARDA 1 bb 22:59 Note provider notified of pt's vital signs. bb 23:19 Note pt came to room and was set up on the senior analyst programmer. pts bs rhythm was sinus kc4 tach/ SVT. during EKG patient heart rhythm changed to SR with occasional PVCs. Historical: - Allergies: :57 No Known Allergies; bb - Home Meds: 22:57 carvedilol 12.5 mg Oral tab 1 tab 2 times per day [Active]; Epclusa 400-100 mg Oral tab bb 1 tab once daily [Active]; Isentress 400 mg Oral tab 1 tab 2 times per day [Active]; Kaletra 200-50 mg Oral tab 2 tabs 2 times per day [Active]; lamivudine 10 mg/mL Oral soln 2.5 mL once daily [Active]; pantoprazole 40 mg Oral TbEC 1 tab once daily [Active]; prednisolone acetate 1 % Opht drps 1 drop 4 times per day [Active]; Daija-Kodak 0.8 mg Oral tab daily [Active]; Vitamin D Oral 09213 unit WEEKLY [Active]; warfarin 10 mg Oral tab 1.5 tabs on M,W, F and 1 tab on T,Thurs, Sat, Sun [Active]; - PMHx: 22:57 Cirrhosis; Diabetes - NIDDM; Dialysis; heart valve; Hepatitis; HIV; Hyperlipidemia; bb Karposi Sarcoma (left leg); kidney failure; L arm HD access; Hypertensive disorder; - Immunization history:: Adult Immunizations up to date, Client reports receiving the 2nd dose of the Covid vaccine. - Social history:: Smoking status: Patient denies any tobacco usage or history of. Patient/guardian denies using alcohol, street drugs. Screenin:16 Abuse screen: Denies threats or abuse. Denies injuries from another. Nutritional kc4 screening: No deficits noted. On no prescribed diet Difficulty chewing/swallowing? No. Tuberculosis screening: No symptoms or risk factors identified. Never had TB. Possible symptoms: None Risk factors: None. Fall Risk None identified. No fall in past 12 months (0 pts). No secondary diagnosis (0 pts). IV access (20 points). Ambulatory Aid- None/Bed Rest/Nurse Assist (0 pts). Gait- Normal/Bed Rest/Wheelchair (0 pts) Mental Status- Oriented to own ability (0 pts). Total Humphrey Fall Scale indicates No Risk (0-24 pts). Assessment: 23:12 General: Appears in no apparent distress. comfortable, slender, Behavior is calm, kc4 cooperative, appropriate for age, Denies. Pain: Denies pain. Cardiovascular: Reports palpitations, tachycardia Denies chest pain, diaphoresis, fatigue, lightheadedness, nausea, shortness of breath, syncope, vomiting, Heart tones S1 S2 Capillary refill < 3 seconds JVD is absent Patient's skin is warm and dry. Pulses are all present. Edema is absent. Rhythm is sinus rhythm with unifocal PVCs Chest pain is denied Dialysis shunt: in the left arm, with palpable thrill, with auscultated bruit, with no erythema, with no edema, no bleeding noted. Respiratory: No deficits noted. GI: No deficits noted. No signs and/or symptoms were reported involving the gastrointestinal system. : No deficits noted. No signs and/or symptoms were reported regarding the genitourinary system. EENT: No deficits noted. No signs and/or symptoms were reported regarding the EENT system. Derm: No deficits noted. No signs and/or symptoms reported regarding the dermatologic system. Musculoskeletal: No deficits noted. No signs and/or symptoms reported regarding the musculoskeletal system. 23:12 Neuro: No deficits noted. kc4 Vital Signs: 22:55 BP 116 / 90; Pulse 179; Resp 20 S; Temp 97.9(O); Pulse Ox 97% on R/A; Weight 68.04 kg bb (R); Height 5 ft. 7 in. (170.18 cm) (R); Pain 0/10; 23:16 BP 118 / 56; Pulse 95; Resp 20; Temp 97.9(O); Pulse Ox 96% on R/A; Pain 0/10; kc4 23:52 BP 136 / 73; Pulse 98; Resp 20; Temp 97.9(O); Pulse Ox 98% on R/A; Pain 0/10; kc4 22:55 Body Mass Index 23.49 (68.04 kg, 170.18 cm) bb [place] Coma Score: 23:16 Eye Response: spontaneous(4). Verbal Response: oriented(5). Motor Response: obeys kc4 commands(6). Total: 15. ED Course: 22:44 Patient arrived in ED. ja2 22:55 Efe Ridley NP is PHCP. pm1 22:55 David Cardenas MD is Attending Physician. pm1 22:57 Triage completed. bb 22:57 Arm band placed on Patient placed in an exam room, on a stretcher, on senior analyst programmer, bb on pulse oximetry. EKG completed in triage. Results shown to MD. 23:05 Nora Kelly is Primary Nurse. kc4 23:05 Magnesium Sent. kc4 23:05 BMP Sent. kc4 23:05 CBC with Diff Sent. kc4 23:09 Inserted saline lock: 20 gauge in right forearm, using aseptic technique. df1 23:16 Patient has correct armband on for positive identification. Placed in gown. Bed in low kc4 position. Call light in reach. Side rails up X 1. 23:16 No provider procedures requiring assistance completed. kc4 Administered Medications: 23:08 Drug: NS 0.9% 250 ml Route: IV; Rate: bolus; Site: left forearm; kc4 23:53 Follow up: IV Status: Completed infusion kc4 23:53 Follow up: Response: No adverse reaction kc4 Outcome: 23:53 Discharge ordered by MD. pm1 07/16 00:02 Patient left the ED. kc4 Signatures: Zunilda Loomis, RN RN bb Efe Ridley, DISPATCH OFFICER DISPATCH OFFICER pm1 Nora Kelly kc4 Leora Persaud ja2 Grace Rushing df1
--- NOTE | 2021-07-15 23:53 | EDPHYS ---
Physician Documentation [facility] Name: Salvatore Goldman Age: 66 yrs Sex: Male : 1955 Arrival Date: 07/15/2021 Time: 22:44 Bed 18 Private MD: ED Physician David Cardenas HPI: 07/15 23:15 This 66 yrs old Black Male presents to ER via Ambulatory with complaints of FEELS LIKE pm1 HEART IS PUNBING FAST. 23:15 The patient presents with a history of heart racing. Context: The symptoms occur at pm1 rest. Onset: The symptoms/episode began/occurred 30 minute(s) ago. Duration: The patient or guardian reports a single episode, that is still ongoing. Modifying factors: The symptoms are aggravated by nothing. The symptoms are alleviated by nothing. Associated signs and symptoms: The patient has no apparent associated signs or symptoms. Severity of symptoms: in the emergency department the symptoms are unchanged. The patient has experienced similar episodes in the past, several times, and the symptoms today are exactly the same, to previous svt. The patient has been recently seen by a physician: Dr. 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 23:15 Patient with dialysis treatment today. pm1 Historical: - Allergies: 22:57 No Known Allergies; bb - Home Meds: 22:57 carvedilol 12.5 mg Oral tab 1 tab 2 times per day [Active]; Epclusa 400-100 mg Oral tab bb 1 tab once daily [Active]; Isentress 400 mg Oral tab 1 tab 2 times per day [Active]; Kaletra 200-50 mg Oral tab 2 tabs 2 times per day [Active]; lamivudine 10 mg/mL Oral soln 2.5 mL once daily [Active]; pantoprazole 40 mg Oral TbEC 1 tab once daily [Active]; prednisolone acetate 1 % Opht drps 1 drop 4 times per day [Active]; Daija-Kodak 0.8 mg Oral tab daily [Active]; Vitamin D Oral 57371 unit WEEKLY [Active]; warfarin 10 mg Oral tab 1.5 tabs on M,W, F and 1 tab on T,Thurs, Sat, Sun [Active]; - PMHx: 22:57 Cirrhosis; Diabetes - NIDDM; Dialysis; heart valve; Hepatitis; HIV; Hyperlipidemia; bb Karposi Sarcoma (left leg); kidney failure; L arm HD access; Hypertensive disorder; - Immunization history:: Adult Immunizations up to date, Client reports receiving the 2nd dose of the Covid vaccine. - Social history:: Smoking status: Patient denies any tobacco usage or history of. Patient/guardian denies using alcohol, street drugs. ROS: 23:15 Constitutional: Negative for fever, chills, and weight loss. pm1 23:15 Respiratory: Negative for shortness of breath, cough, wheezing, and pleuritic chest pain, Abdomen/GI: Negative for abdominal pain, nausea, vomiting, diarrhea, and constipation, Back: Negative for injury and pain, MS/Extremity: Negative for injury and deformity, Skin: Negative for injury, rash, and discoloration, Neuro: Negative for headache, weakness, numbness, tingling, and seizure. 23:15 Cardiovascular: Positive for palpitations, Negative for chest pain, edema. 23:15 All other systems are negative. pm1 Exam: 23:15 Constitutional: This is a well developed, well nourished patient who is awake, alert, pm1 and in no acute distress. Head/Face: Normocephalic, atraumatic. 23:15 Skin: Warm, dry with normal turgor. Normal color with no rashes, no lesions, and no evidence of cellulitis. MS/ Extremity: Pulses equal, no cyanosis. Neurovascular intact. Full, normal range of motion. 23:15 Eyes: Exam is negative for acute changes, Extraocular movements: no acute changes, Conjunctiva: normal, no injection. 23:15 ENT: Exam is negative for acute changes, Mouth: no acute changes, Lips: normal, moist, Oral mucosa: normal, pink and intact, moist. 23:15 Cardiovascular: Exam negative for acute changes, Rate: tachycardic, Rhythm: regular, Pulses: no pulse deficits are appreciated, Heart sounds: normal, normal S1and S2, Edema: is not appreciated. 23:15 Respiratory: Exam negative for acute changes, respiratory distress, shortness of breath, Breath sounds: are clear throughout. 23:15 Abdomen/GI: Inspection: abdomen appears normal, Palpation: abdomen is soft and non-tender, in all quadrants. 23:15 Neuro: Exam negative for acute changes, Orientation: is normal, Mentation: is normal, Motor: is normal, moves all fours. Vital Signs: 22:55 BP 116 / 90; Pulse 179; Resp 20 S; Temp 97.9(O); Pulse Ox 97% on R/A; Weight 68.04 kg bb (R); Height 5 ft. 7 in. (170.18 cm) (R); Pain 0/10; 23:16 BP 118 / 56; Pulse 95; Resp 20; Temp 97.9(O); Pulse Ox 96% on R/A; Pain 0/10; kc4 23:52 BP 136 / 73; Pulse 98; Resp 20; Temp 97.9(O); Pulse Ox 98% on R/A; Pain 0/10; kc4 22:55 Body Mass Index 23.49 (68.04 kg, 170.18 cm) bb Kyle Coma Score: 23:16 Eye Response: spontaneous(4). Verbal Response: oriented(5). Motor Response: obeys kc4 commands(6). Total: 15. MDM: 23:01 Patient medically screened. pm1 23:15 ED course: Patient converted out of SVT without any intervention while getting EKG. pm1 Will check basic labs. Patient reports dialysis treatment today. Possible fluid restriction is the cause for his SVT. Patient saw his crawler tractor operator yesterday, normal echo per patient. 23:52 Data reviewed: vital signs. Data interpreted: Pulse oximetry: on room air is 96 %. pm1 Interpretation: normal. Counseling: I had a detailed discussion with the patient and/or guardian regarding: the historical points, exam findings, and any diagnostic results supporting the discharge/admit diagnosis, lab results, the need for outpatient follow up, Nephrology and Cardiology, to return to the emergency department if symptoms worsen or persist or if there are any questions or concerns that arise at home. 07/15 23:02 Order name: CBC with Diff; Complete Time: 23:49 pm1 07/15 23:02 Order name: BMP; Complete Time: 23:49 pm1 07/15 23:02 Order name: Magnesium; Complete Time: 23:49 pm1 07/15 23:02 Order name: EKG; Complete Time: 23:03 pm1 07/15 23:17 Order name: Glucose, Ancillary Testing; Complete Time: 23:49 EDMS 07/15 23:02 Order name: IV Saline Lock; Complete Time: 23:08 pm1 07/15 23:02 Order name: EKG - Nurse/Tech; Complete Time: 23:05 pm1 Administered Medications: 23:08 Drug: NS 0.9% 250 ml Route: IV; Rate: bolus; Site: left forearm; kc4 23:53 Follow up: IV Status: Completed infusion kc4 23:53 Follow up: Response: No adverse reaction kc4 Disposition: 07/16 01:53 Co-signature as Attending Physician, David Cardenas MD. [email or web address] Disposition Summary: 07/15/21 23:53 Discharge Ordered Location: Home pm1 Problem: new pm1 Symptoms: are resolved pm1 Condition: Stable pm1 Diagnosis - Supraventricular tachycardia pm1 Followup: pm1 - With: Emergency Department - When: As needed - Reason: Worsening of condition Followup: pm1 - With: Private Physician - When: 2 - 3 days - Reason: Recheck today's complaints, Continuance of care, Re-evaluation by your physician Discharge Instructions: - Discharge Summary Sheet pm1 - Supraventricular Tachycardia, Adult pm1 Forms: - Medication Reconciliation Form pm1 - Thank You Letter pm1 - Antibiotic Education pm1 - Prescription Opioid Use pm1 Signatures: Dispatcher [employer] EDMS David Cardenas MD MD pkl Zunilda Loomis, LAURYN RN Efe Martin NP WEB ANALYST pm1 Nora Kelly [email or web address]
[2021-07-16 00:49] VITALS: TEMP 97.9
--- OUTSIDE RECORDS SUMMARY | 2021-07-16 00:59 | XMS REPORT | Continuity of Care Document ---
:1955 Author Organization [facility] t Address [address] [place] [address] Care Team Providers Name Role Phone RADHA [...] Expiration Date Xavier rick MEDICARE A B [id number] 2010 00:00:00 MEDICARE PART A & [id number] 2010 B 00:00:00 MEDICARE PART A [id number] 2010 \\T\\ B 00:00:00 CDC REVIEW [id number] 2020 00:00:00 Problems This patient has no known problems. Allergies, Adverse Reactions, Alerts Allergy Allergy Status Severity Reaction(s) Onset Inactive Treating Comm ents Source Name Type Date Date Clinician CODEINE Allergy Active Med Other 12-02 00:00: 00 NO KNOWN Drug Active [facility] This patient has no known medications. [...] / Time Performed Performing Clinician Randy e 0C1Q21E 2020-06-29 00:00:00 ENCPL 1C1J30T 2020-06-29 00:00:00 ENCPL 5P3J36V 2020-06-29 00:00:00 ENCPL 5K2D77K 2020-06-29 00:00:00 ENCPL 0O3Z28N 2020-06-29 00:00:00 ENCPL 7K4H23V 2020-06-29 00:00:00 ENCPL 5N3P12X 2020-06-29 00:00:00 ENCPL 1R0W22F 2020-06-29 00:00:00 ENCPL 2M5R99P 2020-06-29 00:00:00 ENCPL 0K0M30D 2020-06-29 00:00:00 ENCPL 5F7S36V 2020-06-29 00:00:00 ENCPL 3T0V70K 2020-06-29 00:00:00 ENCPL 5M3N95D 2020-06-29 00:00:00 ENCPL 4D7A73J 2020-06-29 00:00:00 ENCPL 6U9K86T 2020-03-05 00:00:00 ENCPL 8T6C31U 2020-03-05 00:00:00 ENCPL 0J7F26U 2020-03-05 00:00:00 ENCPL 2C9N83E 2020-03-05 00:00:00 ENCPL 2B7M18U 2020-03-05 00:00:00 ENCPL 4T0R19A 2020-03-05 00:00:00 ENCPL 4P0V47K 2020-03-05 00:00:00 ENCPL 3O9E70C 2020-03-05 00:00:00 ENCPL 7M2K15G 2020-03-05 00:00:00 ENCPL 8G3D59A 2020-03-05 00:00:00 ENCPL 5C9S57H 2020-03-05 00:00:00 ENCPL 6O3I01G 2020-03-05 00:00:00 ENCPL 8G2F95V 2020-03-05 00:00:00 ENCPL 9X2F63Y 2020-03-05 00:00:00 ENCPL 6A6G96T 2020-03-05 00:00:00 ENCPL 9K6P94G 2020-03-05 00:00:00 ENCPL 6G7A96Z 2020-03-05 00:00:00 ENCPL 3J9D70F 2020-03-05 00:00:00 ENCPL 0Y1B57E 2020-03-05 00:00:00 ENCPL 4D8U60Y 2020-03-05 00:00:00 ENCPL 2S4A77K 2020-03-05 00:00:00 ENCPL 9S3K83F 2019-01-08 00:00:00 ENCPL 8X5S27Q 2019-01-08 00:00:00 ENCPL 6I0V75A 2019-01-08 00:00:00 ENCPL 6B9M44B 2019-01-08 00:00:00 ENCPL Encounters Start End Encounter Admission Attending Care Care Encounter Source Date/Time Date/Time Type Type Clinicians Facility Department ID 2020-07-06 Outpatient ALOK CHRISTOS, CHACLR ENCCLR [id number] ENCCLR 21:26:21 N MELVIN 2020-02-26 Inpatient ER JORGE LUIS [facility] [id number] [facility] 23:10:00 [facility] 2021-07-17 2021-07-17 Outpatient JOSE MIGUEL BARRY [facility] [id number] [place] 00:00:00 00:00:00 [facility] 2021-07-17 2021-07-17 Outpatient HARRIETT [facility] [id number] [place] 00:00:00 00:00:00 [facility] 2021-07-17 2021-07-17 Outpatient BOBBY [facility] [id number] [place] 00:00:00 00:00:00 [facility] 2021-07-10 2021-07-10 Outpatient JOSE MIGUEL BARRY [facility] [id number] [place] 00:00:00 00:00:00 [facility] 2021-07-03 2021-07-03 Outpatient JOSE MIGUEL BARRY [facility] [id number] [place] 07:40:01 14:04:21 [facility] 2021-07-03 2021-07-03 Outpatient BOBBY [facility] [id number] [place] 08:05:52 08:18:57 [facility] 2021-07-03 2021-07-03 Outpatient Danis [facility] [id number] [place] 08:05:52 08:18:57 [facility] 2021-07-03 2021-07-03 Outpatient JUDD [facility] [id number] [place] 00:00:00 00:00:00 [facility] 2021-07-03 2021-07-03 Outpatient HARRIETT [facility] [id number] [place] 00:00:00 00:00:00 [facility] 2021-06-26 2021-06-26 Outpatient JOSE MIGUEL BARRY [facility] [id number] [place] 07:54:30 08:35:16 [facility] 2021-06-12 2021-06-12 Outpatient JOSE MIGUEL BARRY [facility] [id number] [place] 07:56:03 08:33:36 [facility] 2021-05-29 2021-05-29 Outpatient JOSE MIGUEL BARRY [facility] [id number] [place] 08:28:20 09:29:41 [facility] 2021-05-15 2021-05-15 Outpatient JOSE MIGUEL BARRY [facility] [id number] [place] 08:03:38 08:31:36 [facility] 2021-05-01 2021-05-01 Outpatient [facility] [id number] [place] 08:40:51 08:46:27 [facility] 2021-05-01 2021-05-01 Outpatient JOSE MIGUEL BARRY [facility] [id number] [place] 08:04:58 08:32:39 [facility] 2021-05-01 2021-05-01 Outpatient DANIELLE [facility] [id number] [place] 00:00:00 00:00:00 [facility] 2021-04-24 2021-04-24 Outpatient JOSE MIGUEL BARRY [facility] [id number] [place] 08:03:45 08:22:54 [facility] 2021-04-17 2021-04-17 Outpatient JOSE MIGUEL BARRY [facility] [id number] [place] 08:38:35 08:58:58 [facility] 2021-04-10 2021-04-10 Outpatient FRANCESCO [facility] [id number] [place] 00:00:00 00:00:00 [facility] 2021-03-27 2021-03-27 Outpatient DANIELLE [facility] [id number] [place] 12:10:09 12:36:55 [facility] 2021-03-27 2021-03-27 Outpatient JOSE MIGUEL BARRY [facility] [id number] [place] 09:45:17 10:13:09 [facility] 2021-03-07 2021-03-07 Outpatient JOSE MIGUEL BARRY [facility] [id number] [place] 12:04:05 12:23:09 [facility] 2021-02-20 2021-02-20 Outpatient [facility] [id number] [place] 08:34:14 08:39:27 [facility] 2021-02-20 2021-02-20 Outpatient JOSE MIGUEL BARRY [facility] [id number] [place] 08:09:20 08:34:30 [facility] 2021-02-20 2021-02-20 Outpatient HARRIETT [facility] [id number] [place] 00:00:00 00:00:00 [facility] 2021-02-19 2021-02-19 Emergency BURCH, [facility] 064 [id number] [place] 00:00:00 00:00:00 KRISTI [address] 2021-02-06 2021-02-06 Outpatient [facility] [id number] [place] 09:14:10 09:17:27 [facility] 2021-02-06 2021-02-06 Outpatient JOSE MIGUEL BARRY [facility] [id number] [place] 08:49:54 09:14:22 [facility] 2021-02-06 2021-02-06 Outpatient DANIELLE [facility] [id number] [place] 00:00:00 00:00:00 [facility] 2021-02-06 2021-02-06 Outpatient JUDD [facility] [id number] [place] 00:00:00 00:00:00 [facility] 2021-01-23 2021-01-23 Outpatient DANIELLE [facility] [id number] [place] 11:31:24 12:44:32 [facility] 2021-01-23 2021-01-23 Outpatient JOSE MIGUEL BARRY [facility] [id number] [place] 10:14:28 10:36:06 [facility] 2021-01-10 2021-01-10 Outpatient JOSE MIGUEL BARRY [facility] [id number] [place] 07:22:07 11:41:14 [facility] 2021-01-09 2021-01-09 Outpatient [facility] [id number] [place] 09:13:08 09:20:36 [facility] 2021-01-09 2021-01-09 Outpatient HARRIETT [facility] [id number] [place] 08:19:59 09:12:38 [facility] 2021-01-09 2021-01-09 Outpatient JESSICA [facility] [id number] [place] 00:00:00 00:00:00 [facility] 2021-01-09 2021-01-09 Outpatient HARRIETT [facility] [id number] [place] 00:00:00 00:00:00 [facility] 2021-01-04 2021-01-04 Outpatient JOSE MIGUEL BARRY [facility] [id number] [place] 11:36:44 12:43:02 [facility] 2021-01-02 2021-01-02 Outpatient JOSE MIGUEL BARRY [facility] [id number] [place] 07:27:21 12:04:53 [facility] 2021-01-02 2021-01-02 Outpatient JOSE MIGUEL BARRY [facility] [id number] [place] 00:00:00 00:00:00 [facility] 2020-12-30 2020-12-30 Outpatient [facility] [id number] [place] 00:00:00 00:00:00 [facility] 2020-12-19 2020-12-19 Outpatient JOSE MIGUEL BARRY [facility] [id number] [place] 09:18:35 09:59:02 Health 2020-12-16 2020-12-16 [id number] [place] 10:25:40 10:35:40 [facility] 2020-12-16 2020-12-16 [facility] [id number] [place] 00:00:00 00:00:00 [facility] 2020-11-28 2020-11-28 Emergency X VENITA, [facility] [id number] [facility] 22:52:00 22:52:00 JAMIL [facility] 2020-11-24 2020-11-24 [facility] [id number] [place] 13:25:44 13:59:48 [facility] 2020-11-10 2020-11-10 [facility] [id number] [place] 00:00:00 00:00:00 [facility] 2020-11-09 2020-11-09 Outpatient JONNY MON [facility] [id number] [place] 07:51:58 08:14:33 Health 2020-10-27 2020-10-27 [facility] [id number] [place] 12:02:34 12:25:02 [facility] 2020-10-20 2020-10-20 [facility] [id number] [place] 00:00:00 00:00:00 [facility] 2020-10-20 2020-10-20 [facility] [id number] [place] 00:00:00 00:00:00 [facility] 2020-10-06 2020-10-06 [facility] [id number] [place] 11:11:47 11:11:47 [facility] 2020-07-08 2020-07-08 Outpatient SUMEET SHER [id number] [facility] 08:37:00 08:37:00 MELVIN [facility] 2020-05-09 2020-06-28 Inpatient VO, LE [facility] 025 [id number] [place] 00:00:00 00:00:[address] 2020-04-21 2020-04-21 Emergency ER [facility] Emergency [id number] [facility] 20:49:00 20:49:00 2019-11-09 2019-11-09 Outpatient [facility] [id number] [facility] 08:51:00 08:51:00 2019-09-12 2019-09-12 Emergency WANDA [facility] Myles4 [id number] [place] 00:00:00 00:00:00 [facility]U [facility] 2017-11-18 2017-11-20 Inpatient C AMIE, [facility] [id number] [facility] 13:43:00 13:54:00 [facility] 2017-11-07 2017-11-07 Emergency E [facility] [id number] [facility] 20:22:00 20:22:00 [facility] 2017-10-06 2017-10-06 Emergency E ELIANA, [facility] [id number] 14:25:00 14:25:00 [facility] Results Test Description Test Time Test Comments Results Result Comments Source HIV1 RNA # Plas RADHA DL=20 2021-07-05 16:15:28 Test Item Value Reference Range Interpretation Comme nts HIV1 RNA SerPl Ql RADHA+probe (test code = 29449-3) NOT DETECTED Not detected This test utilizes FDA cleared ERICH AmpliPrep/ERICH TaqMan HIV-1 test 2.0 from [employer] which allows quantitation of viral loads between [...] patients with HIV-1 infection. CD4+CD8+ Cells NFr [id number] 13:12:03 Test Item Value Reference Range Interpretation Comments T-cell CD4 subset 480 cells/uL See_Comment [Automate d message] pnl Bld (test code The syste m which = 32239-0) generated this result transmitted ref erence range: 431-1,62 3. The reference range was not used to interpr et this result as normal/abnormal . CD3+CD4+ 1.54 ratio 0.86-2.05 Cells/CD3+CD8+ Cells Bld (test code = 14300-7) CD4+CD8+ Cells NFr 40.0 % 25.0-56.0 Bld (test code = 07623-3) RPR [id number] 14:32:36 Test Item Value Reference Range Interpretation Comments T pallidum Ab Ser Ql Aggl (test NEGATIVE Negative, Equivocal code = 70358-0) Reagin+T pallidum IgG+IgM NEGATIVE Negative SerPl-Imp (test code = 22157-0) AG HEPATITIS B [id number] 11:26:00 Test Item Value Reference Range Interpretation Comments AG HEPATITIS B SURFACE (test NEGATIVE SCREEN NEGATIVE code = HBSAG) AB HEPATITIS A [id number] 03:08:00 Test Item Value Reference Range Interpretation Comments AB HEPATITIS A IGM Negative Negative Performed At: (test code = HAVMAB) [facility] [id number] [place], [place] [id number] lauren Chapman MD Ph:[phone] AB HEPATITIS B [id number] 03:08:00 Test Item Value Reference Range Interpretation Comments AB HEPATITIS B SURFACE 96.5 mIU/mL Immunity>9.9 Sta tus of Immunity (test code = HBSAB) Anti-HBs Level --- I ncons istent with Imm unity 0.0 - 9.9Consis tent with Immunity >9.9 AB HEPATITIS A [id number] 03:08:00 Test Item Value Reference Range Interpretation Comments AB HEPATITIS A IGM (test code = HAVMAB) AB HEPATITIS B [id number] 03:08:00 Test Item Value Reference Range Interpretation Comments AB HEPATITIS B SURFACE 96.5 mIU/mL Immunity>9.9 Sta tus of Immunity (test code = HBSAB) Anti-HBs Level --- I ncons istent with Imm unity 0.0 - 9.9Consis tent with Immunity >9.9 COVID 19 Asymptomatic IH [id number] 09:05:00 Test Item Value Reference Range Interpretation [...] in Respiratory specimen by RADHA with probe [id number] 10:30:29 Test Item Value Reference Range Interpretation Comments SARS-CoV-2 (COVID-19) RNA Not detected Not-Detected [Presence] in Respiratory specimen by RADHA with probe detection (test code = 13265-8) SARS-CoV-2 (COVID-19) RNA [Presence] in Respiratory specimen by RADHA with probe [id number] 18:12:42 Test Item Value Reference Range Interpretation Comments SARS-CoV-2 (COVID-19) RNA Not detected Not-Detected [Presence] in Respiratory specimen by RADHA with probe detection (test code = 86546-6) SARS-CoV-2 (COVID-19) RNA [Presence] in Respiratory specimen by RADHA with probe [id number] 12:55:22 Test Item Value Reference Range Interpretation Comments SARS-CoV-2 (COVID-19) RNA Not detected Not-Detected [Presence] in Respiratory specimen by RADHA with probe detection (test code = 11401-9) SARS-CoV-2 (COVID-19) RNA [Presence] in Respiratory specimen by RADHA with probe [id number] 23:46:30 Test Item Value Reference Range Interpretation Comments SARS-CoV-2 (COVID-19) RNA Not detected Not-Detected [Presence] in Respiratory specimen by RADHA with probe detection (test code = 77058-6) TROPONIN [id number] 23:28:00 Test Item Value Reference Range Interpretation [...] failure, acidosis, acute neurological disease, and persistent tachyarrhythmia.Diplomatic Interpreter ID - AKSHAT LBASIC METABOLIC [id number] 23:26:00 Test Item Value Reference Range Interpretation [...] S NOT APPLICABLE FOR DIALYSIS PATIEN TS. Diplomatic Interpreter ID - AKSHAT LB-TYPE NATRIURETIC FACTOR (BNP)2020-04-21 23:25:00 Test Item Value Reference Range Interpretation Comments B-TYPE NATRIURETIC PEPTIDE 1507 pg/mL 0-100 H (BEAKER) (test code = 700) Diplomatic Interpreter ID - AKSHAT LPT/[id number] 23:09:00 Test Item Value Reference Range Interpretation [...] mechanical heart valves.CBC W/PLT COUNT & AUTO [id number] 22:49:00 Test Item Value Reference Range Interpretation [...] (test code = 2801) RAD, CHEST, 2 [id number] 22:26:00Reason for exam:->SHORTNESS OF BREATH FINAL REPORT [...] No acute abnormality.Additional findings: None. Signed: [facility] Verified Date/Time: 04/21/2020 22:26:38 POCT-GLUCOSE [id number] 15:36:00 Test Item Value Reference Range Interpretation Comments POC-GLUCOSE METER 133 mg/dL 70-110 H : TESTED A T [facility] 6720 ([facility]) (test code = siOPT[facility], 1538) 77495: Diplomatic Interpreter/Techni kush ID = [id number] for Phyllis Rao POCT-GLUCOSE [id number] 12:38:00 Test Item Value Reference Range Interpretation Comments POC-GLUCOSE METER 100 mg/dL 70-110 : TESTED A T [facility] 6720 ([facility]) (test code = [facility] [employer] [facility], 1538) 39470: Diplomatic Interpreter/Techni kush ID = [id number] for Phyllis Rao [id number] 09:28:00 Test Item Value Reference Range Interpretation Comments PARTIAL THROMBOPLASTIN TIME 67.8 seconds 22.5-36.0 H (BEAKER) (test code = 760) [id number] 07:14:00 Test Item Value Reference Range Interpretation Comments PARTIAL THROMBOPLASTIN TIME 146.9 seconds 22.5-36.0 H (BEAKER) (test code = 760) CBC W/PLT COUNT & AUTO [id number] 05:40:00 Test Item Value Reference Range Interpretation [...] (BEAKER) (test code = 2801) BASIC METABOLIC [id number] 05:24:00 Test Item Value Reference Range Interpretation [...] S NOT APPLICABLE FOR DIALYSIS PATIEN TS. Diplomatic Interpreter ID - LORENZO WPROTHROMBIN TIME/[id number] 04:52:00 Test Item Value Reference Range Interpretation [...] T [facility] 6720 (BEAKER) (test code = [facility], 1538) 36557: Diplomatic Interpreter/Techni kush ID = [id number] for KATIA RAO [id number] 21:05:00 Test Item Value Reference Range Interpretation Comments PARTIAL THROMBOPLASTIN TIME 66.8 seconds 22.5-36.0 H (BEAKER) (test code = 760) [id number] 19:49:00 Test Item Value Reference Range Interpretation Comments PARTIAL THROMBOPLASTIN TIME > seconds 22.5-36.0 HH (BEAKER) (test code = 760) POCT-GLUCOSE [id number] 17:09:00 Test Item Value Reference Range Interpretation Comments POC-GLUCOSE METER 145 mg/dL 70-110 H : TESTED A T [facility] 6720 (BEAKER) (test code = [facility], 1538) 84546: Diplomatic Interpreter/Techni kush ID = [id number] for Christina Chisholm POCT-GLUCOSE [id number] 12:10:00 Test Item Value Reference Range Interpretation Comments POC-GLUCOSE METER 113 mg/dL 70-110 H : TESTED A T [facility] 6720 (BEAKER) (test code = [facility], 1538) 95713: Diplomatic Interpreter/Techni kush ID = [id number] for Eugenia Chisholmia [id number] 11:50:00 Test Item Value Reference Range Interpretation Comments PARTIAL THROMBOPLASTIN TIME 96.6 seconds 22.5-36.0 H (BEAKER) (test code = 760) POCT-GLUCOSE [id number] 08:28:00 Test Item Value Reference Range Interpretation Comments POC-GLUCOSE METER 150 mg/dL 70-110 H : TESTED A T [facility] 6720 (BEAKER) (test code = [facility] [place], 1538) 82665: Diplomatic Interpreter/Techni kush ID = [id number] for Christina Chisholm BASIC METABOLIC [id number] 06:15:00 Test Item Value Reference Range Interpretation [...] S NOT APPLICABLE FOR DIALYSIS PATIEN TS. Diplomatic Interpreter ID - BSCBC W/PLT COUNT & AUTO [id number] 06:12:00 Test Item Value Reference Range Interpretation [...] 0-1 PERCENT (BEAKER) (test code = 2801) [id number] 05:43:00 Test Item Value Reference Range Interpretation Comments PARTIAL THROMBOPLASTIN TIME 61.8 seconds 22.5-36.0 H (BEAKER) (test code = 760) PROTHROMBIN [id number] 05:42:00 Test Item Value Reference Range Interpretation [...] mg/dL 70-110 H : TESTED A T [facility] 6720 (BEAKER) (test code = MARIA GOSMAN [place] [place], 1538) 11578: Diplomatic Interpreter/Techni kush ID = [id number] for AN BENITA ERNANDEZ [id number] 22:49:00 Test Item Value Reference Range Interpretation Comments PARTIAL THROMBOPLASTIN TIME 86.0 seconds 22.5-36.0 H (BEAKER) (test code = 760) [id number] 15:29:00 Test Item Value Reference Range Interpretation [...] INR is2.5-3.5 for patients wiht mechanical heart valves.[id number] 15:29:00 Test Item Value Reference Range Interpretation Comments PARTIAL THROMBOPLASTIN TIME 90.0 seconds 22.5-36.0 H (BEAKER) (test code = 760) BASIC METABOLIC [id number] 12:20:00 Test Item Value Reference Range Interpretation [...] S NOT APPLICABLE FOR DIALYSIS PATIEN TS. Diplomatic Interpreter ID - ANTONIA FCBC W/PLT COUNT & AUTO [id number] 07:29:00 Test Item Value Reference Range Interpretation [...] 0-1 PERCENT (BEAKER) (test code = 2801) [id number] 07:20:00 Test Item Value Reference Range Interpretation Comments PARTIAL THROMBOPLASTIN TIME 61.2 seconds 22.5-36.0 H (BEAKER) (test code = 760) While on warfarin.BASIC METABOLIC [id number] 07:06:00 Test Item Value Reference Range Interpretation [...] S NOT APPLICABLE FOR DIALYSIS PATIEN TS. Diplomatic Interpreter ID - ANTONIA FPROTHROMBIN TIME/[id number] 06:37:00 Test Item Value Reference Range Interpretation [...] for patients wiht mechanical heart valves.While on warfarin.[id number] 23:03:00 Test Item Value Reference Range Interpretation Comments PARTIAL THROMBOPLASTIN TIME 54.4 seconds 22.5-36.0 H (BEAKER) (test code = 760) POCT-GLUCOSE [id number] 22:30:00 Test Item Value Reference Range Interpretation Comments POC-GLUCOSE METER 96 mg/dL 70-110 : TESTED A T [facility] 6720 (BEAKER) (test code = [facility] [employer] [facility], 1538) 06086: Diplomatic Interpreter/Techni kush ID = [id number] for BENITA MASSEY POCT-GLUCOSE [id number] 15:59:00 Test Item Value Reference Range Interpretation Comments POC-GLUCOSE METER 133 mg/dL 70-110 H : TESTED A T [facility] 6720 (BEAKER) (test code = [facility] [employer] [facility], 1538) 37636: Diplomatic Interpreter/Techni kush ID = [id number] for Phyllis Rao [id number] 15:38:00 Test Item Value Reference Range Interpretation Comments PARTIAL THROMBOPLASTIN TIME 88.8 seconds 22.5-36.0 H (BEAKER) (test code = 760) POCT-GLUCOSE [id number] 12:08:00 Test Item Value Reference Range Interpretation Comments POC-GLUCOSE METER 130 mg/dL 70-110 H : TESTED A T [facility] 6720 (BEAKER) (test code = [facility] [employer] [facility], 1538) 13221: Diplomatic Interpreter/Techni kush ID = [id number] for Phyllis Rao PROTHROMBIN TIME/[id number] 11:48:00 Test Item Value Reference Range Interpretation [...] INR is2.5-3.5 for patients wiht mechanical heart valves.[id number] 09:34:00 Test Item Value Reference Range Interpretation Comments PARTIAL THROMBOPLASTIN TIME 74.6 seconds 22.5-36.0 H (BEAKER) (test code = 760) CBC W/PLT COUNT & AUTO [id number] 01:34:00 Test Item Value Reference Range Interpretation [...] (BEAKER) (test code = 2801) BASIC METABOLIC [id number] 01:29:00 Test Item Value Reference Range Interpretation [...] S NOT APPLICABLE FOR DIALYSIS PATIEN TS. Diplomatic Interpreter ID - PIAYA [id number] 01:13:00 Test Item Value Reference Range Interpretation Comments PARTIAL THROMBOPLASTIN TIME 56.4 seconds 22.5-36.0 H (BEAKER) (test code = 760) POCT-GLUCOSE [id number] 23:59:00 Test Item Value Reference Range Interpretation Comments POC-GLUCOSE METER 134 mg/dL 70-110 H : TESTED A T [facility] 6720 (BEAKER) (test code = [facility] [employer] [facility], 153) 55175: Diplomatic Interpreter/Techni kush ID = [id number] for SCOOTER MIRZA [id number] 18:52:00 Test Item Value Reference Range Interpretation Comments PARTIAL THROMBOPLASTIN TIME 47.3 seconds 22.5-36.0 H (BEAKER) (test code = 760) [id number] 18:18:00 Test Item Value Reference Range Interpretation Comments PARTIAL THROMBOPLASTIN TIME > seconds 22.5-36.0 HH (BEAKER) (test code = 760) POCT-GLUCOSE [id number] 18:15:00 Test Item Value Reference Range Interpretation Comments POC-GLUCOSE METER 143 mg/dL 70-110 H : TESTED A T [facility] 6720 (BEAKER) (test code = [facility] [employer] [facility], 153) [id number]: Diplomatic Interpreter/Techni kush ID = [id number] for DO BBINS, RANDI POCT-GLUCOSE [id number] 12:15:00 Test Item Value Reference Range Interpretation Comments POC-GLUCOSE METER 123 mg/dL 70-110 H : TESTED A T [facility] 6720 (BEAKER) (test code = [facility] [employer] [facility], 1538) [id number]: Diplomatic Interpreter/Techni kush ID = [id number] for DO BBINS, RANDI [id number] 11:28:00 Test Item Value Reference Range Interpretation Comments PARTIAL THROMBOPLASTIN TIME 57.3 seconds 22.5-36.0 H (BEAKER) (test code = 760) POCT-GLUCOSE [id number] 06:49:00 Test Item Value Reference Range Interpretation Comments POC-GLUCOSE METER 86 mg/dL 70-110 : TESTED A T [facility] 6720 (BEAKER) (test code = DIAMOND [facility] [employer] [facility], 1538) [address]: Diplomatic Interpreter/Techni kush ID = [id number] for SCOOTER MAYA BASIC METABOLIC [id number] 06:19:00 Test Item Value Reference Range Interpretation [...] S NOT APPLICABLE FOR DIALYSIS PATIEN TS. Diplomatic Interpreter ID - PIAYA LCBC W/PLT COUNT & AUTO [id number] 04:57:00 Test Item Value Reference Range Interpretation [...] PERCENT (BEAKER) (test code = 2801) POCT-GLUCOSE [id number] 02:25:00 Test Item Value Reference Range Interpretation Comments POC-GLUCOSE METER 69 mg/dL 70-110 L : TESTED A T [facility] 6720 (BEAKER) (test code = [place], 1538) [address]: Diplomatic Interpreter/Techni kush ID = [id number] for KEIT H, RADHA FL, FLUORO, NON-SPECIFIC, UP TO 1 [id number] 01:47:00Reason for exam:- >orif right femurFluoroscopic unit utilized for a procedure performed in the OR. No interpretation was requested. Refer to the operative report for findings. Refer to PACS for patient radiation dose information.[id number] 20:21:00 Test Item Value Reference Range Interpretation Comments PARTIAL THROMBOPLASTIN TIME 41.1 seconds 22.5-36.0 H (BEAKER) (test code = 760) 6 hours after starting heparin infusion and as indicated per sliding scalePOCT- GLUCOSE [id number] 17:57:00 Test Item Value Reference Range Interpretation Comments POC-GLUCOSE METER 82 mg/dL 70-110 : TESTED A T [facility] 6720 (BEAKER) (test code = [place], 1538) [address]: Diplomatic Interpreter/Techni kush ID = [id number] for ALMA DELIA PATHAK [id number] 17:14:00 Test Item Value Reference Range Interpretation Comments FERRITIN (BEAKER) (test code = 5182.19 ng/mL 5.00-275.00 H 361) Diplomatic Interpreter ID - JOEL BEASLEY, TIBC, % SAT. (WITHOUT FERRITIN)2020-02-27 16:01:00 Test Item Value Reference Range Interpretation Comments IRON (BEAKER) (test code = 547) 125.0 ug/dL 40.0-160.0 TOTAL IRON BINDING CAPACITY 219 ug/dL 250-450 L (BEAKER) (test code = 769) IRON % SATURATION (2) (BEAKER) 57 % 20-55 H (test code = 2590) Diplomatic Interpreter ID - JOEL [id number] 12:54:00 Test Item Value Reference Range Interpretation Comments PARTIAL THROMBOPLASTIN TIME 41.5 seconds 22.5-36.0 H (BEAKER) (test code = 760) Prior to initiating heparinPLATELET [id number] 12:51:00 Test Item Value Reference Range Interpretation Comments PLATELET COUNT (BEAKER) (test 116 K/CU MM 150-450 L code = 756) Diplomatic Interpreter ID - Anibal clotSARS-COV2/RT-PCR ([facility])2020-02-27 12:46:00 Test Item Value Reference Range Interpretation Comments SARS-COV2/RT-PCR (test code = Negative Not Detected, Negative 1314168) SARS-COV-2 PERFORMING LAB [facility] (test code = 9294631) Negative result for this test determines that [...] 564(g) of the Act.Fact Sheet for Healthcare Providers:https://www.[employer].com/sites/default/files/product/documents/Fact_Shee k_HT_Ouxzefvxm_Scnm_KANP-WcW-9.pdfFact Sheet for Healthcare Patients:https://www.[employer].com/sites/default/files/product/ documents/Ktvq_Bcouo_Kpzldnie_Prmi_MZOG-IjY-2.pdfPerforming Laboratory:[facility], [place] [address]KJML-NLPULAB METER 2020-02-27 12:12:00 Test Item Value Reference Range Interpretation Comments POC-GLUCOSE METER 90 mg/dL 70-110 : TESTED A T [facility] 6720 (JARROD) (test code = FOSTER Paul [facility], 1538) [address]: Diplomatic Interpreter/Techni kush ID = [id number] for SELENA BIRCH HEPATITIS B SURFACE [id number] 11:32:00 Test Item Value Reference Range Interpretation Comments HEPATITIS B SURFACE ANTIGEN (2) Nonreactive Nonreactive (JARROD) (test code = 2585) Specimen is considered negative for HBsAg.RAD, WRIST, 2 VIEWS, [id number] 09:19:00Reason for exam:->fall, immbolityFINAL REPORT TECHNIQUE: Frontal, oblique, and lateral views of the left wrist. INDICATION: Fall immobility. COMPARISON: None. FINDINGS:No acute fractures or dislocations.Joint spaces are within normal limits.There are atherosclerotic calcifications of the vessels. Surgical clipsproject over the distal radius.. IMPRESSION:No acute osseous abnormality. Signed: Bhavin Artis Verified Date/Time: 02/27/2020 09:19:08 Reading Location: [address] Body ReadingRoom [id number] 08:30:00 Test Item Value Reference Range Interpretation Comments POTASSIUM (JARROD) (test code = 5.0 meq/L 3.5-5.1 379) Diplomatic Interpreter ID - PIAYA LRAD, PELVIS, 1 OR 2 [id number] 07:23:00Reason for exam:->femoral neck fxFINAL REPORT RAD, [...] MDRjerryort Verified Date/Time: 02/27/2020 07:23:52 Reading Location: [place] [id number] Neuro Reading Room RAD, HIP, 2 VIEWS, [id number] 07:23:00Reason for exam:- >femoral neck fractureFINAL REPORT [...] MDReport Verified Date/Time: 02/27/2020 07:23:52 Reading Location: [address] Neuro Reading Room POCT-GLUCOSE [id number] 06:26:00 Test Item Value Reference Range Interpretation Comments POC-GLUCOSE METER 72 mg/dL 70-110 : TESTED A T [facility] 6720 (BEAKER) (test code = [place], 1538) [address]: Diplomatic Interpreter/Techni kush ID = [id number] for BRITNEY BRISAALEJANDROSCOOTER COMPREHENSIVE METABOLIC [id number] 02:44:00 Test Item Value Reference Range Interpretation [...] S NOT APPLICABLE FOR DIALYSIS PATIEN TS. Diplomatic Interpreter ID Patel ODEN LPROTHROMBIN TIME/[id number] 02:03:00 Test Item Value Reference Range Interpretation [...] INR is2.5-3.5 for patients wiht mechanical heart valves.[id number] 01:56:00 Test Item Value Reference Range Interpretation Comments PHOSPHORUS (BEAKER) (test code = 7.3 mg/dL 2.3-4.7 H 604) Diplomatic Interpreter ID - AKSHAT [id number] 01:56:00 Test Item Value Reference Range Interpretation Comments MAGNESIUM (BEAKER) (test code = 1.9 mg/dL 1.6-2.6 627) Diplomatic Interpreter ID Patel ODEN LCBC W/PLT COUNT & AUTO [id number] 01:33:00 Test Item Value Reference Range Interpretation [...] (test code = 2801) AFB CULTURE + [id number] 07:33:00 Test Item Value Reference Range Interpretation Comments CULTURE (BEAKER) (test No acid-fast bacilli code = 1095) isolated in 42 days AFB SMEAR (BEAKER) No acid fast bacilli (test code = 994) seen FUNGUS CULTURE + [id number] 17:26:00 Test Item Value Reference Range Interpretation Comments CULTURE (BEAKER) (test No fungus isolated in code = 1095) 28 days FUNGUS SMEAR (BEAKER) No fungi seen (test code = 1406) PROTHROMBIN [id number] 00:05:00 Test Item Value Reference Range Interpretation Comments PT PATIENT (test code = PTP) 18.2 SECONDS 9.3-12.9 H INTERNATIONAL NORMAL RATIO 1.57 INR Unit 0.8-1.2 H (test code = INR) POCT-GLUCOSE [id number] 13:35:00 Test Item Value Reference Range Interpretation Comments POC-GLUCOSE METER 116 mg/dL 70-110 H TESTED AT [place] [address] ([facility]) (test code = FOSTER Paul [facility] 1538) [address] POCT-GLUCOSE [id number] 08:54:00 Test Item Value Reference Range Interpretation Comments POC-GLUCOSE METER 99 mg/dL 70-110 TESTED AT [place] [address] ([facility]) (test code = [facility] Humberto [facility] [address] 1538) [id number] 06:34:00 Test Item Value Reference Range Interpretation Comments PARTIAL THROMBOPLASTIN TIME 46.7 seconds 22.5-36.0 H ([facility]) (test code = 760) While on warfarin.PROTHROMBIN TIME/[id number] 06:33:00 Test Item Value Reference Range Interpretation [...] H (BEAKER) (test code = 413) POCT-GLUCOSE [id number] 21:38:00 Test Item Value Reference Range Interpretation Comments POC-GLUCOSE METER 192 mg/dL 70-110 H TESTED AT [facility] 6720 (BEAKER) (test code = [place] 1538) [address] POCT-GLUCOSE [id number] 13:01:00 Test Item Value Reference Range Interpretation Comments POC-GLUCOSE METER 200 mg/dL 70-110 H TESTED AT [facility] 6720 ([facility]) (test code = [place] 1538) [address] POCT-GLUCOSE [id number] 08:00:00 Test Item Value Reference Range Interpretation Comments POC-GLUCOSE METER 123 mg/dL 70-110 H TESTED AT [facility] 6720 ([facility]) (test code = [place] 1538) [address] [id number] 06:40:00 Test Item Value Reference Range Interpretation Comments PARTIAL THROMBOPLASTIN TIME 83.1 seconds 22.5-36.0 H ([facility]) (test code = 760) [id number] 05:54:00 Test Item Value Reference Range Interpretation Comments PARTIAL THROMBOPLASTIN TIME > seconds 22.5-36.0 HH ([facility]) (test code = 760) PROTHROMBIN [id number] 05:30:00 Test Item Value Reference Range Interpretation [...] (BEAKER) (test code = 413) BASIC METABOLIC [id number] 05:10:00 Test Item Value Reference Range Interpretation [...] APPLICABLE FOR DIALYSIS PATIEN TS. OCCULT BLOOD, [id number] 23:46:00 Test Item Value Reference Range Interpretation Comments FECAL OCCULT BLOOD (BEAKER) (test Negative Negative code = 618) POCT-GLUCOSE [id number] 22:52:00 Test Item Value Reference Range Interpretation Comments POC-GLUCOSE METER 192 mg/dL 70-110 H TESTED AT [facility] 6720 (BEAKER) (test code = [place] 1538) [address] POCT-GLUCOSE [id number] 17:11:00 Test Item Value Reference Range Interpretation Comments POC-GLUCOSE METER 149 mg/dL 70-110 H TESTED AT [place] [address] ([facility]) (test code = FOSTER Paul [facility] 1538) [address] PROTHROMBIN [id number] 13:00:00 Test Item Value Reference Range Interpretation Comments PROTIME ([facility]) (test code = 19.9 seconds 11.7-14.7 H 759) INR ([facility]) (test code = 370) 1.8 <=5.9 RECOMMENDED COUMADIN/WARFARIN INR THERAPY RANGESSTANDARD DOSE: 2.0 - 3.0 Includes: PROPHYLAXIS forvenous thrombosis, systemic embolization; TREATMENT for venous thrombosis and/or pulmonary embolus.HIGH RISK: Target INR is 2.5-3.5 for patients with mechanical heart valves.While on warfarin.POCT-GLUCOSE METER 2019-01-04 12:14:00 Test Item Value Reference Range Interpretation Comments POC-GLUCOSE METER 134 mg/dL 70-110 H TESTED AT [place] [address] ([facility]) (test code = FOSTER Paul [facility] 1538) [address] RAD, CHEST, 1 VIEW, NON [id number] 08:02:00Reason for exam:->Post opShould this be performed [...] Bloom Verified Date/Time: 01/04/2019 08:02:18 Reading Location: [facility] C013W Consult Reading Room Electronicallysigned by: EDENILSON BLOOM M.D. on 01/04/2019 08:02 AMPOCT-GLUCOSE [id number] 07:42:00 Test Item Value Reference Range Interpretation Comments POC-GLUCOSE METER 98 mg/dL 70-110 TESTED AT [place] [address] ([facility]) (test code = FOSTER Paul [facility] [address] 1538) BASIC METABOLIC [id number] 07:28:00 Test Item Value Reference Range Interpretation [...] ([facility]) (test code = 413) [id number] 06:08:00 Test Item Value Reference Range Interpretation Comments PARTIAL THROMBOPLASTIN TIME 70.6 seconds 22.5-36.0 H ([facility]) (test code = 760) [id number] 23:32:00 Test Item Value Reference Range Interpretation Comments PARTIAL THROMBOPLASTIN TIME 77.2 seconds 22.5-36.0 H ([facility]) (test code = 760) POCT-GLUCOSE [id number] 21:55:00 Test Item Value Reference Range Interpretation Comments POC-GLUCOSE METER 150 mg/dL 70-110 H TESTED AT [facility] 67[address] ([facility]) (test code = FOSTER Paul [facility] 1538) [address] [id number] 18:25:00 Test Item Value Reference Range Interpretation Comments PARTIAL THROMBOPLASTIN TIME 71.2 seconds 22.5-36.0 H ([facility]) (test code = 760) POCT-GLUCOSE [id number] 13:45:00 Test Item Value Reference Range Interpretation Comments POC-GLUCOSE METER 375 mg/dL 70-110 H Notified R Toy PÉREZ/TESTED ([facility]) (test code = AT [facility] [address] [place] [address]) [facility] [address] [id number] 10:26:00 Test Item Value Reference Range Interpretation Comments PARTIAL THROMBOPLASTIN TIME 94.0 seconds 22.5-36.0 H ([facility]) (test code = 760) While on warfarin.PROTHROMBIN TIME/[id number] 10:24:00 Test Item Value Reference Range Interpretation Comments PROTIME ([facility]) (test code = 19.3 seconds 11.7-14.7 H 759) INR ([facility]) (test code = 370) 1.7 <=5.9 RECOMMENDED COUMADIN/WARFARIN INR THERAPY RANGESSTANDARD DOSE: 2.0 - 3.0 Includes: PROPHYLAXIS forvenous thrombosis, systemic embolization; TREATMENT for venous thrombosis and/or pulmonary embolus.HIGH RISK: Target INR is 2.5-3.5 for patients with mechanical heart valves.While on warfarin.POCT-GLUCOSE METER 2019-01-03 08:36:00 Test Item Value Reference Range Interpretation Comments POC-GLUCOSE METER 124 mg/dL 70-110 H TESTED AT [facility] 6720 (BEAKER) (test code = [place] 1538) [address] RAD, CHEST, 1 VIEW, NON [id number] 08:19:00Reason for exam:->Post opShould this be performed [...] Lisa Verified Date/Time: 01/03/2019 08:19:51 Reading Location: [address] Neuro Reading Room [id number] 03:31:00 Test Item Value Reference Range Interpretation Comments PARTIAL THROMBOPLASTIN TIME 64.2 seconds 22.5-36.0 H (BEAKER) (test code = 760) BASIC METABOLIC [id number] 03:21:00 Test Item Value Reference Range Interpretation [...] H (BEAKER) (test code = 413) POCT-GLUCOSE [id number] 22:54:00 Test Item Value Reference Range Interpretation Comments POC-GLUCOSE METER 206 mg/dL 70-110 H TESTED AT [facility] 6720 ([facility]) (test code = [place] 1538) [address] [id number] 19:36:00 Test Item Value Reference Range Interpretation Comments PARTIAL THROMBOPLASTIN TIME 79.3 seconds 22.5-36.0 H (BEAKER) (test code = 760) POCT-GLUCOSE [id number] 17:59:00 Test Item Value Reference Range Interpretation Comments POC-GLUCOSE METER 186 mg/dL 70-110 H TESTED AT [facility] 67[facility] (test code = [place] 1538) [address] POCT-GLUCOSE [id number] 13:54:00 Test Item Value Reference Range Interpretation Comments POC-GLUCOSE METER 139 mg/dL 70-110 H TESTED AT [facility] 67[address] [facility] (test code = FOSTER Paul [place] 1538) [address] POCT-GLUCOSE [id number] 13:05:00 Test Item Value Reference Range Interpretation Comments POC-GLUCOSE METER 163 mg/dL 70-110 H TESTED AT [facility] 67[address] [facility] (test code = FOSTER Paul [place] 1538) [address] [id number] 12:49:00 Test Item Value Reference Range Interpretation Comments PARTIAL THROMBOPLASTIN TIME 64.9 seconds 22.5-36.0 H (AKER) (test code = 760) OCCULT BLOOD, [id number] 12:31:00 Test Item Value Reference Range Interpretation Comments FECAL OCCULT BLOOD ([facility]) (test Negative Negative code = 618) RAD, CHEST, 1 VIEW, NON [id number] 10:37:00Reason for exam:->Post opShould this be performed [...] IMPRESSION: No significant change. Signed: [facility] Verified Date/Time: 01/02/2019 10:37:35 Reading Loc ation: ARTURO Michelle Brendan Radiology Reading Room POCT-GLUCOSE [id number] 08:07:00 Test Item Value Reference Range Interpretation Comments POC-GLUCOSE METER 107 mg/dL 70-110 TESTED AT [facility] 6720 (BEAKER) (test code = [place] 1538) [address] [id number] 04:48:00 Test Item Value Reference Range Interpretation Comments PARTIAL THROMBOPLASTIN TIME 106.0 seconds 22.5-36.0 H (BEAKER) (test code = 760) While on warfarin.BASIC METABOLIC [id number] 04:48:00 Test Item Value Reference Range Interpretation [...] NOT APPLICABLE FOR DIALYSIS PATIEN TS. PROTHROMBIN [id number] 04:39:00 Test Item Value Reference Range Interpretation [...] 0-0 (BEAKER) (test code = 413) POCT-GLUCOSE [id number] 22:17:00 Test Item Value Reference Range Interpretation Comments POC-GLUCOSE METER 117 mg/dL 70-110 H TESTED AT [facility] 6720 (BEAKER) (test code = [place] 1538) [address] RAD, CHEST, 1 VIEW, NON [id number] 19:40:00Reason for exam:->Post opShould this be performed [...] MDReport Verified Date/Time: 01/01/2019 19:40:01 Reading Location: [facility] C013W Consult Reading Room POCT-GLUCOSE [id number] 18:22:00 Test Item Value Reference Range Interpretation Comments POC-GLUCOSE METER 159 mg/dL 70-110 H TESTED AT [place] [address] ([facility]) (test code = [facility] 1538) [address] POCT-GLUCOSE [id number] 14:12:00 Test Item Value Reference Range Interpretation Comments POC-GLUCOSE METER 135 mg/dL 70-110 H TESTED AT [place] [address] ([facility]) (test code = [facility] 1538) [address] HEPATITIS B SURFACE [id number] 11:52:00 Test Item Value Reference Range Interpretation Comments HEPATITIS B SURFACE ANTIGEN (2) Nonreactive Nonreactive (BEAKER) (test code = 2585) POCT-GLUCOSE [id number] 08:40:00 Test Item Value Reference Range Interpretation Comments POC-GLUCOSE METER 85 mg/dL 70-110 TESTED AT [place] [address] [facility] (test code = [facility] [address] 1538) BASIC METABOLIC [id number] 04:17:00 Test Item Value Reference Range Interpretation [...] S NOT APPLICABLE FOR DIALYSIS PATIEN TS. [id number] 03:40:00 Test Item Value Reference Range Interpretation Comments PARTIAL THROMBOPLASTIN TIME 84.1 seconds 22.5-36.0 H (BEAKER) (test code = 760) While on warfarin.PROTHROMBIN TIME/[id number] 03:39:00 Test Item Value Reference Range Interpretation [...] [facility]ICAL [facility]ENTER) (test code = 413) POCT-GLUCOSE [id number] 22:08:00 Test Item Value Reference Range Interpretation Comments POC-GLUCOSE METER 194 mg/dL 70-110 H TESTED AT [facility] 67 ([facility]) (test code = FOSTER Paul [facility] 1538) [address] POCT-GLUCOSE [id number] 22:03:00 Test Item Value Reference Range Interpretation Comments POC-GLUCOSE METER 203 mg/dL 70-110 H TESTED AT [place] [address] ([facility]) (test code = FOSTER Paul [facility] 1538) [address] POCT-GLUCOSE [id number] 21:42:00 Test Item Value Reference Range Interpretation Comments POC-GLUCOSE METER 42 mg/dL 70-110 L TESTED AT [place] [address] ([facility]) (test code = FOSTER Paul [facility] [address] 1538) [id number] 21:35:00 Test Item Value Reference Range Interpretation Comments PARTIAL THROMBOPLASTIN TIME 80.4 seconds 22.5-36.0 H ([facility]) (test code = 760) POCT-GLUCOSE [id number] 18:03:00 Test Item Value Reference Range Interpretation Comments POC-GLUCOSE METER 144 mg/dL 70-110 H TESTED AT [place] [address] ([facility]) (test code = [facility] Humberto [facility] 1538) [address] TISSUE [id number] 16:33:00Surgical Pathology Report Case: [id number] Authorizing Provider: Enmanuel Sharma Collected: 12/26/2018 1537 MD Liban OrderingLocation: [address] Received: 12/29/2018 0814 Service Pathologist: Brigida [...] stains. GMSImmunohistochemistry technical testing was performed at [facility], Pathology Laboratory where it was developed and [...] toperform high complexity clinical laboratory testing.CPT CODE: [id number] electronically signed by Brigida Parks MD on [...] ARE NEGATIVE Signing Pathologist Direct Phone Line: [phone] signed by Brigida Parks MD on 12/30/2018 at 6:43 PMPreliminary result electronically signed by Brigida Parks MD on 12/29/2018 at 4:54 [id number] X 2; 87838; 05076; 51677 X 2Upper endoscopy, biopsyPreoperative and postoperative diagnosis: [...] AND CMVImmunohistochemistry technical testing was performed at [facility], Pathology Laboratory where it was developed and [...] qualified toperform high complexity clinical laboratory testing.POCT-GLUCOSE [id number] 13:57:00 Test Item Value Reference Range Interpretation Comments POC-GLUCOSE METER 178 mg/dL 70-110 H TESTED AT [place] [address] ([facility]) (test code = [place] 1538) [address] [id number] 12:54:00 Test Item Value Reference Range Interpretation Comments PARTIAL THROMBOPLASTIN TIME 69.4 seconds 22.5-36.0 H ([facility]) (test code = 760) RAD, CHEST, 1 VIEW, NON [id number] 09:26:00Reason for exam:->Post opShould this be performed [...] MDReport Verified Date/Time: 12/31/2018 09:26:31 Reading Location: [facility] Radiology Reading Room POCT-GLUCOSE [id number] 09:01:00 Test Item Value Reference Range Interpretation Comments POC-GLUCOSE METER 162 mg/dL 70-110 H TESTED AT [place] [address] (BEAKER) (test code = [place] 1538) [address] BASIC METABOLIC [id number] 06:50:00 Test Item Value Reference Range Interpretation [...] NOT APPLICABLE FOR DIALYSIS PATIEN TS. PROTHROMBIN [id number] 06:38:00 Test Item Value Reference Range Interpretation Comments PROTIME (BEAKER) (test code = 19.1 seconds 11.7-14.7 H 759) INR (BEAKER) (test code = 370) 1.7 <=5.9 RECOMMENDED COUMADIN/WARFARIN INR THERAPY RANGESSTANDARD DOSE: 2.0 - 3.0 Includes: PROPHYLAXIS forvenous thrombosis, systemic embolization; TREATMENT for venous thrombosis and/or pulmonary embolus.HIGH RISK: Target INR is 2.5-3.5 for patients with mechanical heart valves.While on warfarin.[id number] 06:37:00 Test Item Value Reference Range Interpretation [...] 0-0 (BEAKER) (test code = 413) POCT-GLUCOSE [id number] 00:45:00 Test Item Value Reference Range Interpretation Comments POC-GLUCOSE METER 124 mg/dL 70-110 H TESTED AT [place] [address] ([facility]) (test code = [place] 1538) [address] [id number] 19:14:00 Test Item Value Reference Range Interpretation Comments PARTIAL THROMBOPLASTIN TIME 57.8 seconds 22.5-36.0 H ([facility]) (test code = 760) POCT-GLUCOSE [id number] 17:53:00 Test Item Value Reference Range Interpretation Comments POC-GLUCOSE METER 133 mg/dL 70-110 H TESTED AT [place] [address] ([facility]) (test code = [place] 1538) [address] POCT-GLUCOSE [id number] 13:19:00 Test Item Value Reference Range Interpretation Comments POC-GLUCOSE METER 147 mg/dL 70-110 H TESTED AT [place] [address] ([facility]) (test code = [place] 1538) [address] [id number] 12:43:00 Test Item Value Reference Range Interpretation Comments PARTIAL THROMBOPLASTIN TIME 57.0 seconds 22.5-36.0 H (BEAKER) (test code = 760) [id number] 10:17:00 Test Item Value Reference Range Interpretation Comments PARTIAL THROMBOPLASTIN TIME 134.5 seconds 22.5-36.0 H (BEAKER) (test code = 760) POCT-GLUCOSE [id number] 07:43:00 Test Item Value Reference Range Interpretation Comments POC-GLUCOSE METER 107 mg/dL 70-110 TESTED AT [facility] 6720 (BEAKER) (test code = [place] 1538) [address] BASIC METABOLIC [id number] 06:46:00 Test Item Value Reference Range Interpretation [...] PATIEN TS. RAD, CHEST, 1 VIEW, NON [id number] 06:25:00Reason for exam:->Post opShould this be performed [...] None. Signed: Radha Lisa MDReport Verified Date/Time: 12/30/2018 06:25:51 Reading Location: [facility] C013V Neuro Reading Room PROTHROMBIN TIME/[id number] 06:06:00 Test Item Value Reference Range Interpretation [...] [facility]ICAL [facility]ENTER) (test code = 413) POCT-GLUCOSE [id number] 22:19:00 Test Item Value Reference Range Interpretation Comments POC-GLUCOSE METER 179 mg/dL 70-110 H TESTED AT [place] [address] ([facility]) (test code = FOSTER Paul [place] 1538) [address] POCT-GLUCOSE [id number] 17:39:00 Test Item Value Reference Range Interpretation Comments POC-GLUCOSE METER 181 mg/dL 70-110 H TESTED AT [place] [address] ([facility]) (test code = FOSTER [place] 1538) [address] POCT-GLUCOSE [id number] 13:14:00 Test Item Value Reference Range Interpretation Comments POC-GLUCOSE METER 102 mg/dL 70-110 TESTED AT [place] [address] ([facility]) (test code = FOSTER Paul [facility] 1538) [address] RAD, CHEST, 1 VIEW, NON [id number] 08:56:00Reason for exam:->Post opShould this be performed [...] IMPRESSION: No interval change. Signed: Edenilson Bloom [facility] Verified Date/Time: 12/29/2018 08:56:32 Reading Location: [facility] Radiology Reading Room Electronically signed by: EDENILSON BLOOM M.D.on 12/29/2018 08:56 AMPOCT-GLUCOSE [id number] 07:53:00 Test Item Value Reference Range Interpretation Comments POC-GLUCOSE METER 135 mg/dL 70-110 H TESTED AT [place] [address] ([facility]) (test code = FOSTER Paul [facility] 1538) [address] [id number] 06:45:00 Test Item Value Reference Range Interpretation Comments PARTIAL THROMBOPLASTIN TIME 83.5 seconds 22.5-36.0 H (BEAKER) (test code = 760) While on warfarin.PROTHROMBIN TIME/[id number] 06:44:00 Test Item Value Reference Range Interpretation [...] 411) MEAN CORPUSCULAR VOLUME ([facility]) 100.0 fL 79.0-92.2 H (test code = 753) MEAN CORPUSCULAR HEMOGLOBIN 32.7 pg 25.7-32.2 H ([facility]) (test code = 751) MEAN CORPUSCULAR HEMOGLOBIN CONC 32.7 GM/DL 32.3-36.5 ([facility]) (test code = 752) RED CELL DISTRIBUTION WIDTH 15.6 % 11.6-14.4 H ([facility]) (test code = 412) PLATELET COUNT ([facility]) (test 131 K/CU MM 150-450 L code = 756) MEAN PLATELET VOLUME ([facility]) 9.1 fL 9.4-12.4 L (test code = 754) NUCLEATED RED BLOOD CELLS 0 /100 WBC 0-0 ([facility]) (test code = 413) [id number] 00:01:00 Test Item Value Reference Range Interpretation Comments PARTIAL THROMBOPLASTIN TIME 78.5 seconds 22.5-36.0 H ([facility]) (test code = 760) POCT-GLUCOSE [id number] 21:26:00 Test Item Value Reference Range Interpretation Comments POC-GLUCOSE METER 139 mg/dL 70-110 H TESTED AT [place] [address] ([facility]) (test code = [place] 1538) [address] POCT-GLUCOSE [id number] 17:58:00 Test Item Value Reference Range Interpretation Comments POC-GLUCOSE METER 146 mg/dL 70-110 H TESTED AT [place] [address] ([facility]) (test code = [place] 1538) [address] [id number] 17:16:00 Test Item Value Reference Range Interpretation Comments PARTIAL THROMBOPLASTIN TIME 34.5 seconds 22.5-36.0 ([facility]) (test code = 760) Prior to initiating heparinPOCT-GLUCOSE [id number] 12:54:00 Test Item Value Reference Range Interpretation Comments POC-GLUCOSE METER 133 mg/dL 70-110 H TESTED AT [place] [address] ([facility]) (test code = [place] 1538) [address] RAD, CHEST, 1 VIEW, NON [id number] 08:06:00Reason for exam:->Post opShould this be performed at the bedside?->YesFINAL REPORT Chest one view. Clinical history: Post op Comparison: 12/27/2018 Discussion: A frontal chest is provided. Cardiomediastinal contours are unchanged. Lines and tubesare in stable position. Unchanged right-sided pleural-parenchymal opacities. Left lung is grossly clear. Vessels do not appear engorged. No pneumothorax. Signed: Dionicio Cheryeport Verified Date/Time: 12/28/2018 08:06:07 Reading Location: [address] Neuro Reading Room BASIC METABOLIC [id number] 06:52:00 Test Item Value Reference Range Interpretation [...] NOT APPLICABLE FOR DIALYSIS PATIEN TS. PROTHROMBIN [id number] 06:31:00 Test Item Value Reference Range Interpretation [...] 0-0 (BEAKER) (test code = 413) POCT-GLUCOSE [id number] 21:41:00 Test Item Value Reference Range Interpretation Comments POC-GLUCOSE METER 163 mg/dL 70-110 H TESTED AT [facility] ([facility]) (test code = FOSTER Paul [place] 1538) [address] POCT-GLUCOSE [id number] 17:23:00 Test Item Value Reference Range Interpretation Comments POC-GLUCOSE METER 119 mg/dL 70-110 H TESTED AT [facility] ([facility]) (test code = [facility] Humberto [place] 1538) [address] RAD, CHEST, 1 VIEW, NON [id number] 14:49:00Reason for exam:->Post opShould this be performed [...] MDReport Verified Date/Time: 12/27/2018 14:49:48 Reading Location: [facility] B1 C013X Ortho Consult Reading Room ANG, NON-TUNNELED CATH >5 Y.O. [id number] 14:17:00Reason for exam:->Central line placement, poor access, [...] guide wire was advanced centrally. A 7 Lithuanian 20 cm triple lumen catheter was advanced [...] [place] Verified Date/Time: 12/27/2018 14:17:02 Reading Location: [facility] P048 Angio Body Reading Room [id number] 13:44:00 Test Item Value Reference Range Interpretation Comments PARTIAL THROMBOPLASTIN TIME 44.3 seconds 22.5-36.0 H (BEAKER) (test code = 760) Prior to initiating heparinPOCT-GLUCOSE [id number] 13:27:00 Test Item Value Reference Range Interpretation Comments POC-GLUCOSE METER 127 mg/dL 70-110 H TESTED AT [place] [address] ([facility]) (test code = [facility] 1538) [address] POCT-GLUCOSE [id number] 08:58:00 Test Item Value Reference Range Interpretation Comments POC-GLUCOSE METER 79 mg/dL 70-110 TESTED AT [place] [address] ([facility]) (test code = [facility] [address] 1538) BASIC METABOLIC [id number] 07:09:00 Test Item Value Reference Range Interpretation [...] NOT APPLICABLE FOR DIALYSIS PATIEN TS. PROTHROMBIN [id number] 06:52:00 Test Item Value Reference Range Interpretation [...] WBC 0-0 (test code = 413) POCT-GLUCOSE [id number] 23:54:00 Test Item Value Reference Range Interpretation Comments POC-GLUCOSE METER 73 mg/dL 70-110 TESTED AT [facility] [address] (BEAKER) (test code = [place] [address] 1538) POCT-GLUCOSE [id number] 16:02:00 Test Item Value Reference Range Interpretation Comments POC-GLUCOSE METER 108 mg/dL 70-110 [facility] (test code = FOSTER Paul [facility] 1538) [address] POCT-GLUCOSE [id number] 15:24:00 Test Item Value Reference Range Interpretation Comments POC-GLUCOSE METER 74 mg/dL 70-110 TESTED AT [facility] [address] ([facility]) (test code = FOSTER Paul [facility] [address] 1538) POCT-GLUCOSE [id number] 10:29:00 Test Item Value Reference Range Interpretation Comments POC-GLUCOSE METER 88 mg/dL 70-110 TESTED AT [facility] [address] ([facility]) (test code = FOSTER Paul [facility] [address] 1538) RAD, CHEST, 1 VIEW, NON [id number] 07:33:00Reason for exam:->Post opShould this be performed [...] No significant change. Signed: Sarah Beth Mejia MDRepcit[facility] healthcare Verified Date/Time: 12/26/2018 07:33:38 Reading Location: [facility] Radiology Reading Room BASIC METABOLIC [id number] 06:42:00 Test Item Value Reference Range Interpretation [...] 0-0 H (test code = 413) PROTHROMBIN [id number] 05:44:00 Test Item Value Reference Range Interpretation Comments PROTIME (BEAKER) (test code = 24.4 seconds 11.7-14.7 H 759) INR (BEAKER) (test code = 370) 2.2 <=5.9 RECOMMENDED COUMADIN/WARFARIN INR THERAPY RANGESSTANDARD DOSE: 2.0 - 3.0 Includes: PROPHYLAXIS forvenous thrombosis, systemic embolization; TREATMENT for venous thrombosis and/or pulmonary embolus.HIGH RISK: Target INR is 2.5-3.5 for patients with mechanical heart valves.POCT-GLUCOSE [id number] 00:06:00 Test Item Value Reference Range Interpretation Comments POC-GLUCOSE METER 88 mg/dL 70-110 TESTED AT [facility] ([facility]) (test code = [facility] [address] 1538) POCT-GLUCOSE [id number] 19:06:00 Test Item Value Reference Range Interpretation Comments POC-GLUCOSE METER 121 mg/dL 70-110 H TESTED AT [place] [address] ([facility]) (test code = [facility] 1538) [address] PROTHROMBIN [id number] 16:10:00 Test Item Value Reference Range Interpretation Comments PROTIME (BEAKER) (test code = 30.1 seconds 11.7-14.7 H 759) INR (BEAKER) (test code = 370) 2.9 <=5.9 RECOMMENDED COUMADIN/WARFARIN INR THERAPY RANGESSTANDARD DOSE: 2.0 - 3.0 Includes: PROPHYLAXIS forvenous thrombosis, systemic embolization; TREATMENT for venous thrombosis and/or pulmonary embolus.HIGH RISK: Target INR is 2.5-3.5 for patients with mechanical heart valves.BASIC METABOLIC [id number] 16:10:00 Test Item Value Reference Range Interpretation [...] S NOT APPLICABLE FOR DIALYSIS PATIEN TS. [id number] 16:09:00 Test Item Value Reference Range Interpretation [...] 0-0 H (test code = 413) POCT-GLUCOSE [id number] 08:03:00 Test Item Value Reference Range Interpretation Comments POC-GLUCOSE METER 89 mg/dL 70-110 TESTED AT [facility] 67[address] (BEAKER) (test code = [place] [address] 1538) RAD, CHEST, 1 VIEW, NON [id number] 07:46:00Reason for exam:->Post opShould this be performed at the bedside?->YesFINAL REPORT Chest one view. Clinical history: Post op Comparison: 12/24/2018 Discussion: A frontal chest is provided. Cardiomediastinal contours are unchanged. Stable appearance of pleural-parenchymal opacity at the right mid to lower lung. There is a tiny right apical pneumothorax, unchanged. Probable trace left effusion. Signed: Dionicio Chery Verified Date/Time: 07:46:01 Reading Location: [facility] Radiology Reading Room RAD, ABDOMEN/KUB, 1 VIEW [id number] 07:25:00Reason for exam:->abdominal distentionShould this be performed [...] Chery Verified Date/Time: 12/25/2018 07:25:40 Reading Location: [facility] Radiology Reading Room POCT-GLUCOSE [id number] 22:06:00 Test Item Value Reference Range Interpretation Comments POC-GLUCOSE METER 102 mg/dL 70-110 TESTED AT [place] [address] ([facility]) (test code = FOSTER Paul [facility] 1538) [address] POCT-GLUCOSE [id number] 18:44:00 Test Item Value Reference Range Interpretation Comments POC-GLUCOSE METER 100 mg/dL 70-110 TESTED AT [place] [address] ([facility]) (test code = FOSTER Paul [facility] 1538) [address] POCT-GLUCOSE [id number] 14:54:00 Test Item Value Reference Range Interpretation Comments POC-GLUCOSE METER 103 mg/dL 70-110 TESTED AT [facility] 6720 (BEAKER) (test code = [place] 1538) [address] [id number] 08:07:00 Test Item Value Reference Range Interpretation Comments FERRITIN (BEAKER) (test code = 2044 ng/mL 5-275 H 361) POCT-GLUCOSE [id number] 07:57:00 Test Item Value Reference Range Interpretation Comments POC-GLUCOSE METER 76 mg/dL 70-110 TESTED AT [place] [address] ([facility]) (test code = [place] [address] 1538) RAD, CHEST, 1 VIEW, NON [id number] 07:57:00Reason for exam:->Post opShould this be performed [...] MDReport Verified Date/Time: 12/24/2018 07:57:06 Reading Location: [facility] Radiology Reading Room CBC (HEMOGRAM ONLY) [...] H (test code = 413) BASIC METABOLIC [id number] 07:14:00 Test Item Value Reference Range Interpretation [...] S NOT APPLICABLE FOR DIALYSIS PATIEN TS. [id number] 07:08:00 Test Item Value Reference Range Interpretation [...] % 20-55 (test code = 2590) PROTHROMBIN [id number] 07:05:00 Test Item Value Reference Range Interpretation Comments PROTIME ([facility]) (test code = 38.7 seconds 11.7-14.7 H 759) INR ([facility]) (test code = 370) 3.9 <=5.9 RECOMMENDED COUMADIN/WARFARIN INR THERAPY RANGESSTANDARD DOSE: 2.0 - 3.0 Includes: PROPHYLAXIS forvenous thrombosis, systemic embolization; TREATMENT for venous thrombosis and/or pulmonary embolus.HIGH RISK: Target INR is 2.5-3.5 for patients with mechanical heart valves.POCT-GLUCOSE [id number] 00:26:00 Test Item Value Reference Range Interpretation Comments POC-GLUCOSE METER 86 mg/dL 70-110 TESTED AT [place] [address] ([facility]) (test code = FOSTER Paul [facility] [address] 1538) POCT-GLUCOSE [id number] 00:26:00 Test Item Value Reference Range Interpretation Comments POC-GLUCOSE METER 137 mg/dL 70-110 H TESTED AT [place] [address] ([facility]) (test code = FOSTER Paul [facility] 1538) [address] POCT-GLUCOSE [id number] 16:07:00 Test Item Value Reference Range Interpretation Comments POC-GLUCOSE METER 72 mg/dL 70-110 TESTED AT [place] [address] ([facility]) (test code = FOSTER Paul [facility] [address] 1538) POCT-GLUCOSE [id number] 16:07:00 Test Item Value Reference Range Interpretation Comments POC-GLUCOSE METER 61 mg/dL 70-110 L TESTED AT [place] [address] ([facility]) (test code = FOSTER Paul [facility] [address] 1538) POCT-GLUCOSE [id number] 11:27:00 Test Item Value Reference Range Interpretation Comments POC-GLUCOSE METER 82 mg/dL 70-110 TESTED AT [place] [address] ([facility]) (test code = FOSTER Paul [facility] [address] 1538) POCT-GLUCOSE [id number] 10:32:00 Test Item Value Reference Range Interpretation Comments POC-GLUCOSE METER 43 mg/dL 70-110 L TESTED AT [place] [address] ([facility]) (test code = FSOTER Paul [facility] [address] 1538) BASIC METABOLIC [id number] 07:28:00 Test Item Value Reference Range Interpretation [...] S NOT APPLICABLE FOR DIALYSIS PATIEN TS. [id number] 07:24:00 Test Item Value Reference Range Interpretation Comments MAGNESIUM (BEAKER) 2.0 mg/dL 1.6-2.6 Specimen slightly (test code = 627) hemolyzed [id number] 07:24:00 Test Item Value Reference Range Interpretation Comments PHOSPHORUS (BEAKER) 4.4 mg/dL 2.3-4.7 Specimen slightly (test code = 604) hemolyzed PROTHROMBIN TIME/[id number] 07:20:00 Test Item Value Reference Range Interpretation [...] = 413) RAD, CHEST, 1 VIEW, NON [id number] 04:22:00Reason for exam:->Post opShould this be performed [...] MDReport Verified Date/Time: 12/23/2018 04:22:43 Reading Location: [address] Body Reading Room POCT-GLUCOSE [id number] 03:01:00 Test Item Value Reference Range Interpretation Comments POC-GLUCOSE METER 85 mg/dL 70-110 TESTED AT [facility] 6720 (BEAKER) (test code = [place] [address] 1538) BASIC METABOLIC [id number] 18:52:00 Test Item Value Reference Range Interpretation [...] H (BEAKER) (test code = 413) ANAEROBIC [id number] 17:00:00 Test Item Value Reference Range Interpretation Comments CULTURE (BEAKER) (test No anaerobes isolated code = 1095) RAD, CHEST, 1 VIEW, NON [id number] 07:44:00Reason for exam:->Post opShould this be performed [...] [place] Verified Date/Time: 12/22/2018 07:44:12 Reading Location: [facility] Radiology Reading Room PROTHROMBIN [id number] 04:31:00 Test Item Value Reference Range Interpretation [...] METER 141 mg/dL 70-110 H TESTED AT [facility] 67[address] ([facility]) (test code = [place] 1538) [address] POCT-GLUCOSE [id number] 13:22:00 Test Item Value Reference Range Interpretation Comments POC-GLUCOSE METER 100 mg/dL 70-110 TESTED AT [facility] 67[address] ([facility]) (test code = FOSTER Paul [place] 1538) [address] RAD, CHEST, 1 VIEW, NON [id number] 08:01:00Reason for exam:->Post opShould this be performed [...] Lisa Verified Date/Time: 12/21/2018 08:01:46 Reading Location: [address] Neuro Reading Room PROTHROMBIN TIME/[id number] 05:30:00 Test Item Value Reference Range Interpretation [...] POC-GLUCOSE METER 98 mg/dL 70-110 TESTED AT [place] [address] (BEAKER) (test code = FOSTER Paul [facility] [address] 1538) POCT-GLUCOSE [id number] 17:40:00 Test Item Value Reference Range Interpretation Comments POC-GLUCOSE METER 91 mg/dL 70-110 TESTED AT [place] [address] (BEAKER) (test code = [facility] Humberto [facility] [address] 1538) POCT-GLUCOSE [id number] 13:13:00 Test Item Value Reference Range Interpretation Comments POC-GLUCOSE METER 73 mg/dL 70-110 TESTED AT [place] [address] ([facility]) (test code = [facility] Humberto [facility] [address] 1538) SURGICALLY OBTAINED CULTURE + GRAM [id number] 08:41:00 Test Item Value Reference Range Interpretation Comments CULTURE (BEAKER) (test No growth code = 1095) GRAM STAIN RESULT No White blood cells (BEAKER) (test code = seen 1123) GRAM STAIN RESULT No organisms seen (BEAKER) (test code = 81787) RAD, CHEST, 1 VIEW, NON [id number] 08:20:00Reason for exam:->Post opShould this be performed [...] Lisa Verified Date/Time: 12/20/2018 08:20:58 Reading Location: [facility] Neuro Reading Room BASIC METABOLIC [id number] 08:09:00 Test Item Value Reference Range Interpretation [...] S NOT APPLICABLE FOR DIALYSIS PATIRUBÉN TS. [id number] 08:00:00 Test Item Value Reference Range Interpretation Comments PHOSPHORUS (BEAKER) (test code = 4.5 mg/dL 2.3-4.7 604) CALCIUM, [id number] 07:20:00 Test Item Value Reference Range Interpretation Comments CALCIUM IONIZED (BEAKER) (test 1.04 mmol/L 1.12-1.27 L code = 698) PH, BLOOD (BEAKER) (test code = 7.35 1810) PROTHROMBIN [id number] 07:04:00 Test Item Value Reference Range Interpretation [...] 0-0 (BEAKER) (test code = 413) POCT-GLUCOSE [id number] 22:00:00 Test Item Value Reference Range Interpretation Comments POC-GLUCOSE METER 188 mg/dL 70-110 H TESTED AT [facility] 6720 (BEAKER) (test code = [place] 1538) [address] TISSUE [id number] 18:15:00Surgical Pathology Report Case: [id number] Authorizing Provider: Moiz Vargas, Collected: 12/17/2018 0950 Ordering Location: [facility] Received: 12/17/2018 1129 PERIOPERATIVE SERVICES Pathologist: Kwan Prela MD Specimen: Pleural, Right, RIGHT PLEURAL PEEL PLEURA, RIGHT, DECORTICATION- MILD CHRONIC INFLAMMATION AND GRANULATION TISSUE- ORGANIZING BLOOD CLOTS- NO MALIGNANT CELLS IDENTIFIED Signing Pathologist Direct Phone Line: [phone] signed by Kwan Perla MD on 12/19/2018 at 6:15 PMCorrelation with microbiology cultures is recommended.74115Kbcxejf effusion and other conditions classified elsewhereRight pleural peelThe specimen is received in a formalin-filled container labeled with the patient's information and labeled "right pleural peel" and consists of multiple fragments of porter-red, dusky, firm tissue measuring 6 x 5 x 0.4 cm in aggregate. Field Sales Associate sections are submitted in A1-A3. CG/ew Performed.POCT-GLUCOSE [id number] 17:11:00 Test Item Value Reference Range Interpretation Comments POC-GLUCOSE METER 126 mg/dL 70-110 H TESTED AT [place] [address] ([facility]) (test code = [facility] 1538) [address] POCT-GLUCOSE [id number] 12:57:00 Test Item Value Reference Range Interpretation Comments POC-GLUCOSE METER 143 mg/dL 70-110 H TESTED AT [place] [address] ([facility]) (test code = [facility] 1538) [address] POCT-GLUCOSE [id number] 07:27:00 Test Item Value Reference Range Interpretation Comments POC-GLUCOSE METER 141 mg/dL 70-110 H TESTED AT [place] [address] ([facility]) (test code = [facility] 1538) [address] CALCIUM, [id number] 06:29:00 Test Item Value Reference Range Interpretation Comments CALCIUM IONIZED ([facility]) (test 1.00 mmol/L 1.12-1.27 L code = 698) PH, BLOOD ([facility]) (test code = 7.45 1810) RAD, CHEST, 1 VIEW, NON [id number] 04:54:00Reason for exam:->Post opShould this be performed [...] [place] Verified Date/Time: 2018 04:54:49 Reading Location: [facility] B1 C013Y CT Body Reading Room BASIC METABOLIC [id number] 04:19:00 Test Item Value Reference Range Interpretation [...] S NOT APPLICABLE FOR DIALYSIS PATIEN TS. [id number] 04:16:00 Test Item Value Reference Range Interpretation Comments PHOSPHORUS (BEAKER) (test code = 3.4 mg/dL 2.3-4.7 604) PROTHROMBIN [id number] 04:06:00 Test Item Value Reference Range Interpretation [...] 0-0 (BEAKER) (test code = 413) POCT-GLUCOSE [id number] 22:11:00 Test Item Value Reference Range Interpretation Comments POC-GLUCOSE METER 149 mg/dL 70-110 H TESTED AT [place] [address] ([facility]) (test code = [facility] 1538) [address] POCT-GLUCOSE [id number] 17:52:00 Test Item Value Reference Range Interpretation Comments POC-GLUCOSE METER 122 mg/dL 70-110 H TESTED AT [place] [address] ([facility]) (test code = [facility] 1538) [address] POCT-GLUCOSE [id number] 14:26:00 Test Item Value Reference Range Interpretation Comments POC-GLUCOSE METER 98 mg/dL 70-110 TESTED AT [place] [address] ([facility]) (test code = [facility] [address] 1538) HEMOGLOBIN AND [id number] 12:47:00 Test Item Value Reference Range Interpretation Comments HEMOGLOBIN (BEAKER) (test code = 9.2 GM/DL 13.7-17.5 L 410) HEMATOCRIT (BEAKER) (test code = 28.3 % 40.1-51.0 L 411) POCT-GLUCOSE [id number] 09:38:00 Test Item Value Reference Range Interpretation Comments POC-GLUCOSE METER 73 mg/dL 70-110 TESTED AT [facility] 6720 (BEAKER) (test code = [place] [address] 1538) PROTEIN ELECTROPHORESIS, [id number] 09:21:00 Test Item Value Reference Range Interpretation [...] of chronic inflammation. No monoclonal bands detected. [id number] Amanda De Jesus MD (BEAKER) (test code = (electronic signature) 2616) PROTEIN TOTAL SERUM, 7.5 gm/dL 6.0-8.3 SPEP (BEAKER) (test code = 2660) RAD, CHEST, 1 VIEW, NON [id number] 06:47:00Reason for exam:->Post opShould this be performed [...] MDReport Verified Date/Time: 12/18/2018 06:47:21 Reading Location: [facility] B1 C013Y CT Body Reading Room [id number] 06:20:00 Test Item Value Reference Range Interpretation Comments MAGNESIUM (BEAKER) (test code = 2.2 mg/dL 1.6-2.6 627) CALCIUM, [id number] 06:00:00 Test Item Value Reference Range Interpretation Comments CALCIUM IONIZED (BEAKER) (test 1.09 mmol/L 1.12-1.27 L code = 698) PH, BLOOD (BEAKER) (test code = 7.34 1810) BASIC METABOLIC [id number] 05:07:00 Test Item Value Reference Range Interpretation [...] S NOT APPLICABLE FOR DIALYSIS PATIEN TS. [id number] 04:54:00 Test Item Value Reference Range Interpretation Comments PHOSPHORUS (BEAKER) (test code = 6.3 mg/dL 2.3-4.7 H 604) HEPATIC FUNCTION [id number] 04:54:00 Test Item Value Reference Range Interpretation [...] (test code = 23 U/L 6-55 347) [id number] 04:51:00 Test Item Value Reference Range Interpretation Comments PARTIAL THROMBOPLASTIN TIME 38.6 seconds 22.5-36.0 H (BEAKER) (test code = 760) PROTHROMBIN [id number] 04:50:00 Test Item Value Reference Range Interpretation Comments PROTIME (BEAKER) (test code = 16.0 seconds 11.7-14.7 H 759) INR (BEAKER) (test code = 370) 1.3 <=5.9 RECOMMENDED COUMADIN/WARFARIN INR THERAPY RANGESSTANDARD DOSE: 2.0 - 3.0 Includes: PROPHYLAXIS forvenous thrombosis, systemic embolization; TREATMENT for venous thrombosis and/or pulmonary embolus.HIGH RISK: Target INR is 2.5-3.5 for patients with mechanical heart valves.[id number] 04:50:00 Test Item Value Reference Range Interpretation Comments FIBRINOGEN LEVEL (BEAKER) (test 494 mg/dl 225-434 H code = 658) PLATELET [id number] 04:38:00 Test Item Value Reference Range Interpretation [...] WBC 0-0 (BEAKER) (test code = 413) [id number] 18:48:00 Test Item Value Reference Range Interpretation Comments MAGNESIUM (BEAKER) (test code = 2.4 mg/dL 1.6-2.6 627) POCT-GLUCOSE [id number] 18:42:00 Test Item Value Reference Range Interpretation Comments POC-GLUCOSE METER 121 mg/dL 70-110 H TESTED AT [facility] 6720 (BEAKER) (test code = [place] 1538) [address] HEMOGLOBIN AND [id number] 18:37:00 Test Item Value Reference Range Interpretation Comments HEMOGLOBIN (BEAKER) (test code = 10.0 GM/DL 13.7-17.5 L 410) HEMATOCRIT (BEAKER) (test code = 31.3 % 40.1-51.0 L 411) RAD, CHEST, 1 VIEW, NON [id number] 13:28:00Reason for exam:->post opShould this be performed [...] Reading Location: [facility] Reading Room [facility] [id number] 13:03:00 Test Item Value Reference Range Interpretation [...] S NOT APPLICABLE FOR DIALYSIS PATIEN TS. [id number] 12:53:00 Test Item Value Reference Range Interpretation Comments PHOSPHORUS (BEAKER) (test code = 4.3 mg/dL 2.3-4.7 604) [id number] 12:53:00 Test Item Value Reference Range Interpretation Comments MAGNESIUM (BEAKER) (test code = 1.5 mg/dL 1.6-2.6 L 627) LACTIC ACID, [id number] 12:50:00 Test Item Value Reference Range Interpretation Comments LACTATE BLOOD ARTERIAL (2) 0.9 mmol/L 0.5-2.2 (BEAKER) (test code = 2874) CBC W/PLT COUNT & AUTO [id number] 12:47:00 Test Item Value Reference Range Interpretation [...] PERCENT (BEAKER) (test code = 2801) CALCIUM, [id number] 12:26:00 Test Item Value Reference Range Interpretation Comments CALCIUM IONIZED (BEAKER) (test 1.07 mmol/L 1.12-1.27 L code = 698) PH, BLOOD (BEAKER) (test code = 7.38 1810) BLOOD GAS, [id number] 12:26:00 Test Item Value Reference Range Interpretation [...] (test code = 1819) 40.0 % CALCIUM, [id number] 10:25:00 Test Item Value Reference Range Interpretation Comments CALCIUM IONIZED (BEAKER) (test 1.09 mmol/L 1.12-1.27 L code = 698) PH, BLOOD (BEAKER) (test code = 7.45 1810) BLOOD GAS, [id number] 10:22:00 Test Item Value Reference Range Interpretation [...] code = 1819) 96.0 % SODIUM NA-STAT [id number] 10:22:00 Test Item Value Reference Range Interpretation Comments SODIUM (BEAKER) (test code = 381) 133 meq/L 135-148 L GLUCOSE-STAT [id number] 10:22:00 Test Item Value Reference Range Interpretation Comments GLUCOSE RANDOM (BEAKER) (test code 116 mg/dL 70-110 H = 652) HGB/HCT (H&H) - STAT [id number] 10:22:00 Test Item Value Reference Range Interpretation Comments HEMOGLOBIN (BEAKER) (test code = 8.9 g/dL 13.0-16.8 L 410) HEMATOCRIT (BEAKER) (test code = 26.0 % 40.0-50.0 L 411) POTASSIUM-STAT [id number] 10:20:00 Test Item Value Reference Range Interpretation Comments POTASSIUM (BEAKER) (test code = 4.0 meq/L 3.6-5.5 379) HEMOGLOBIN [id number] 09:33:00 Test Item Value Reference Range Interpretation Comments HEMOGLOBIN A1C (BEAKER) (test code = 5.9 % 4.3-6.1 368) BLOOD GAS, [id number] 09:27:00 Test Item Value Reference Range Interpretation [...] code = 1819) 100.0 % SODIUM NA-STAT [id number] 09:27:00 Test Item Value Reference Range Interpretation Comments SODIUM (BEAKER) (test code = 381) 133 meq/L 135-148 L HGB/HCT (H&H) - STAT [id number] 09:27:00 Test Item Value Reference Range Interpretation Comments HEMOGLOBIN (BEAKER) (test code = 9.4 g/dL 13.0-16.8 L 410) HEMATOCRIT (BEAKER) (test code = 28.0 % 40.0-50.0 L 411) GLUCOSE-STAT [id number] 09:26:00 Test Item Value Reference Range Interpretation Comments GLUCOSE RANDOM (BEAKER) (test code = 97 mg/dL 70-110 652) POTASSIUM-STAT [id number] 09:26:00 Test Item Value Reference Range Interpretation Comments POTASSIUM (BEAKER) (test code = 3.9 meq/L 3.6-5.5 379) CALCIUM, [id number] 09:26:00 Test Item Value Reference Range Interpretation Comments CALCIUM IONIZED (BEAKER) (test 1.17 mmol/L 1.12-1.27 code = 698) PH, BLOOD (BEAKER) (test code = 7.44 1810) BLOOD GAS, [id number] 08:32:00 Test Item Value Reference Range Interpretation [...] code = 1819) 96.0 % SODIUM NA-STAT [id number] 08:32:00 Test Item Value Reference Range Interpretation Comments SODIUM (BEAKER) (test code = 381) 133 meq/L 135-148 L GLUCOSE-STAT [id number] 08:32:00 Test Item Value Reference Range Interpretation Comments GLUCOSE RANDOM (BEAKER) (test code 113 mg/dL 70-110 H = 652) HGB/HCT (H&H) - STAT [id number] 08:32:00 Test Item Value Reference Range Interpretation Comments HEMOGLOBIN (BEAKER) (test code = 9.9 g/dL 13.0-16.8 L 410) HEMATOCRIT (BEAKER) (test code = 29.0 % 40.0-50.0 L 411) CALCIUM, [id number] 08:31:00 Test Item Value Reference Range Interpretation Comments CALCIUM IONIZED (BEAKER) (test 1.05 mmol/L 1.12-1.27 L code = 698) PH, BLOOD (BEAKER) (test code = 7.49 1810) POTASSIUM-STAT [id number] 08:29:00 Test Item Value Reference Range Interpretation Comments POTASSIUM (BEAKER) (test code = 3.6 meq/L 3.6-5.5 379) POCT-GLUCOSE [id number] 06:20:00 Test Item Value Reference Range Interpretation Comments POC-GLUCOSE METER 99 mg/dL 70-110 TESTED AT [facility] 6720 (BEAKER) (test code = [place] [address] 1538) [id number] 05:05:00 Test Item Value Reference Range Interpretation Comments PARTIAL THROMBOPLASTIN TIME 75.6 seconds 22.5-36.0 H (BEAKER) (test code = 760) LIPID [id number] 05:04:00 Test Item Value Reference Range Interpretation [...] Borderline 130-159 High 160-189 Very High >=190PROTHROMBIN [id number] 05:03:00 Test Item Value Reference Range Interpretation Comments PROTIME (BEAKER) (test code = 15.4 seconds 11.7-14.7 H 759) INR (BEAKER) (test code = 370) 1.2 <=5.9 RECOMMENDED COUMADIN/WARFARIN INR THERAPY RANGESSTANDARD DOSE: 2.0 - 3.0 Includes: PROPHYLAXIS forvenous thrombosis, systemic embolization; TREATMENT for venous thrombosis and/or pulmonary embolus.HIGH RISK: Target INR is 2.5-3.5 for patients with mechanical heart valves.POCT-GLUCOSE [id number] 21:17:00 Test Item Value Reference Range Interpretation Comments POC-GLUCOSE METER 223 mg/dL 70-110 H TESTED AT [facility] ([facility] [address] COMPREHENSIVE METABOLIC [id number] 18:57:00 Test Item Value Reference Range Interpretation [...] S NOT APPLICABLE FOR DIALYSIS PATIEN TS. [id number] 18:46:00 Test Item Value Reference Range Interpretation Comments MAGNESIUM (BEAKER) (test code = 1.8 mg/dL 1.6-2.6 627) CBC W/PLT COUNT & AUTO [id number] 18:10:00 Test Item Value Reference Range Interpretation [...] PERCENT (BEAKER) (test code = 2801) POCT-GLUCOSE [id number] 17:34:00 Test Item Value Reference Range Interpretation Comments POC-GLUCOSE METER 169 mg/dL 70-110 H TESTED AT [place] [address] ([facility]) (test code = [place] Paul [facility] 1537) [address] HEPARIN [id number] 13:40:00 Test Item Value Reference Range Interpretation Comments HEPARIN ANTIBODY ([facility]) (test code Negative Negative = 646) HEPARIN ANTIBODY OD ([facility]) (test 0.105 <0.400 code = 2659) 4T TOTAL SCORE ([facility]) (test code = 4 5258) Probability of HIT based on scoring system: 6-8 = High probability; 4-5 = intermediate probability;0-3 = low probabilityPOCT-GLUCOSE [id number] 12:51:00 Test Item Value Reference Range Interpretation Comments POC-GLUCOSE METER 66 mg/dL 70-110 L Ayshaied Humberto Yeager MD/TESTED AT ([facility]) (test code = [place] [address] JOSE ANTONIO 1538) [facility] 7[address] 0 POCT-GLUCOSE [id number] 07:54:00 Test Item Value Reference Range Interpretation Comments POC-GLUCOSE METER 75 mg/dL 70-110 TESTED AT [place] [address] ([facility]) (test code = FOSTER Palu [facility] [address] 1538) [id number] 04:21:00 Test Item Value Reference Range Interpretation [...] is 2.5-3.5 for patients with mechanical heart valves.[id number] 04:20:00 Test Item Value Reference Range Interpretation Comments FIBRINOGEN LEVEL ([facility]) (test 525 mg/dl 225-434 H code = 658) POCT-GLUCOSE [id number] 21:25:00 Test Item Value Reference Range Interpretation Comments POC-GLUCOSE METER 129 mg/dL 70-110 H TESTED AT [place] [address] ([facility]) (test code = [place] Paul [facility] 1538) [address] [id number] 18:23:00 Test Item Value Reference Range Interpretation Comments PARTIAL THROMBOPLASTIN TIME 72.0 seconds 22.5-36.0 H ([facility]) (test code = 760) POCT-GLUCOSE [id number] 16:20:00 Test Item Value Reference Range Interpretation Comments POC-GLUCOSE METER 142 mg/dL 70-110 H TESTED AT [place] [address] ([facility]) (test code = OFSTER Paul [facility] 1538) [address] POCT-GLUCOSE [id number] 13:05:00 Test Item Value Reference Range Interpretation Comments POC-GLUCOSE METER 86 mg/dL 70-110 TESTED AT [place] [address] ([facility]) (test code = [facility] Humberto [facility] [address] 1538) [id number] 11:19:00 Test Item Value Reference Range Interpretation Comments PARTIAL THROMBOPLASTIN TIME 72.3 seconds 22.5-36.0 H ([facility]) (test code = 760) POCT-GLUCOSE [id number] 07:56:00 Test Item Value Reference Range Interpretation Comments POC-GLUCOSE METER 87 mg/dL 70-110 TESTED AT [facility] 6720 (BEAKER) (test code = [place] [id number] 6498) [id number] 03:13:00 Test Item Value Reference Range Interpretation Comments PARTIAL THROMBOPLASTIN TIME 97.1 seconds 22.5-36.0 H (BEAKER) (test code = 760) PROTHROMBIN [id number] 03:11:00 Test Item Value Reference Range Interpretation [...] WBC 0-0 (test code = 413) POCT-GLUCOSE [id number] 21:26:00 Test Item Value Reference Range Interpretation Comments POC-GLUCOSE METER 121 mg/dL 70-110 H TESTED AT [place] [address] ([facility]) (test code = [place] 1538) [address] [id number] 19:05:00 Test Item Value Reference Range Interpretation Comments PARTIAL THROMBOPLASTIN TIME 64.0 seconds 22.5-36.0 H ([facility]) (test code = 760) POCT-GLUCOSE [id number] 17:24:00 Test Item Value Reference Range Interpretation Comments POC-GLUCOSE METER 131 mg/dL 70-110 H TESTED AT [place] [address] ([facility]) (test code = [place] 1538) [address] [id number] 13:32:00 Test Item Value Reference Range Interpretation Comments PARTIAL THROMBOPLASTIN TIME 81.4 seconds 22.5-36.0 H ([facility]) (test code = 760) POCT-GLUCOSE [id number] 12:32:00 Test Item Value Reference Range Interpretation Comments POC-GLUCOSE METER 102 mg/dL 70-110 TESTED AT [place] [address] ([facility]) (test code = [place] 1538) [address] POCT-GLUCOSE [id number] 07:07:00 Test Item Value Reference Range Interpretation Comments POC-GLUCOSE METER 113 mg/dL 70-110 H TESTED AT [place] [address] ([facility]) (test code = [place]OST[place] 1538) [address] [id number] 05:47:00 Test Item Value Reference Range Interpretation Comments PARTIAL THROMBOPLASTIN TIME 91.8 seconds 22.5-36.0 H ([facility]) (test code = 760) POCT-GLUCOSE [id number] 21:27:00 Test Item Value Reference Range Interpretation Comments POC-GLUCOSE METER 90 mg/dL 70-110 TESTED AT [place] [address] ([facility]) (test code = [place] [address] 1538) POCT-GLUCOSE [id number] 17:46:00 Test Item Value Reference Range Interpretation Comments POC-GLUCOSE METER 175 mg/dL 70-110 H TESTED AT [place] [address] ([facility]) (test code = FOSTER Paul [facility] 1538) [address] POCT-GLUCOSE [id number] 17:30:00 Test Item Value Reference Range Interpretation Comments POC-GLUCOSE METER 84 mg/dL 70-110 TESTED AT [place] [address] ([facility]) (test code = FOSTER Paul [facility] [address] 1538) [id number] 13:20:00 Test Item Value Reference Range Interpretation Comments PARTIAL THROMBOPLASTIN TIME 68.4 seconds 22.5-36.0 H (BEAKER) (test code = 760) BASIC METABOLIC [id number] 10:36:00 Test Item Value Reference Range Interpretation [...] NOT APPLICABLE FOR DIALYSIS PATIEN TS. POCT-GLUCOSE [id number] 07:43:00 Test Item Value Reference Range Interpretation Comments POC-GLUCOSE METER 84 mg/dL 70-110 TESTED AT [place] [address] ([facility]) (test code = [place]OST[place] Paul [facility] [address] 1538) [id number] 06:52:00 Test Item Value Reference Range Interpretation Comments PARTIAL THROMBOPLASTIN TIME 76.5 seconds 22.5-36.0 H (BEAKER) (test code = 760) PROTHROMBIN [id number] 06:51:00 Test Item Value Reference Range Interpretation [...] 0-1 PERCENT (BEAKER) (test code = 2801) [id number] 00:11:00 Test Item Value Reference Range Interpretation Comments PARTIAL THROMBOPLASTIN TIME 59.7 seconds 22.5-36.0 H ([facility]) (test code = 760) POCT-GLUCOSE [id number] 21:33:00 Test Item Value Reference Range Interpretation Comments POC-GLUCOSE METER 113 mg/dL 70-110 H TESTED AT [place] [address] ([facility]) (test code = [place] 1538) [address] POCT-GLUCOSE [id number] 18:08:00 Test Item Value Reference Range Interpretation Comments POC-GLUCOSE METER 128 mg/dL 70-110 H TESTED AT [place] [address] ([facility]) (test code = [place] 1538) [address] [id number] 16:51:00 Test Item Value Reference Range Interpretation Comments PARTIAL THROMBOPLASTIN TIME 71.6 seconds 22.5-36.0 H ([facility]) (test code = 760) POCT-GLUCOSE [id number] 12:39:00 Test Item Value Reference Range Interpretation Comments POC-GLUCOSE METER 124 mg/dL 70-110 H TESTED AT [place] [address] ([facility]) (test code = [place] 1538) [address] [id number] 09:07:00 Test Item Value Reference Range Interpretation Comments PARTIAL THROMBOPLASTIN TIME 96.6 seconds 22.5-36.0 H ([facility]) (test code = 760) POCT-GLUCOSE [id number] 07:48:00 Test Item Value Reference Range Interpretation Comments POC-GLUCOSE METER 105 mg/dL 70-110 TESTED AT [facility] 6720 (BEAKER) (test code = [place] 1538) [address] BASIC METABOLIC [id number] 01:54:00 Test Item Value Reference Range Interpretation [...] S NOT APPLICABLE FOR DIALYSIS PATIEN TS. [id number] 01:37:00 Test Item Value Reference Range Interpretation Comments PARTIAL THROMBOPLASTIN TIME 53.4 seconds 22.5-36.0 H (BEAKER) (test code = 760) PROTHROMBIN [id number] 01:36:00 Test Item Value Reference Range Interpretation [...] PERCENT (BEAKER) (test code = 2801) POCT-GLUCOSE [id number] 21:57:00 Test Item Value Reference Range Interpretation Comments POC-GLUCOSE METER 165 mg/dL 70-110 H TESTED AT [place] [address] ([facility]) (test code = FOST[place] 1538) [address] [id number] 18:46:00 Test Item Value Reference Range Interpretation Comments PARTIAL THROMBOPLASTIN TIME 39.0 seconds 22.5-36.0 H ([facility]) (test code = 760) POCT-GLUCOSE [id number] 17:51:00 Test Item Value Reference Range Interpretation Comments POC-GLUCOSE METER 157 mg/dL 70-110 H TESTED AT [place] [address] ([facility]) (test code = FOSTER Paul [place] 1538) [address] POCT-GLUCOSE [id number] 17:09:00 Test Item Value Reference Range Interpretation Comments POC-GLUCOSE METER 162 mg/dL 70-110 H TESTED AT [place] [address] ([facility]) (test code = FOST[place] Paul [place] 1538) [address] [id number] 16:07:00 Test Item Value Reference Range Interpretation Comments PARTIAL THROMBOPLASTIN TIME 117.0 seconds 22.5-36.0 H ([facility]) (test code = 760) POCT-GLUCOSE [id number] 13:28:00 Test Item Value Reference Range Interpretation Comments POC-GLUCOSE METER 88 mg/dL 70-110 TESTED AT [place] [address] ([facility]) (test code = FOSTER Paul [facility] [address] 1538) [id number] 09:17:00 Test Item Value Reference Range Interpretation Comments PARTIAL THROMBOPLASTIN TIME 71.7 seconds 22.5-36.0 H ([facility]) (test code = 760) POCT-GLUCOSE [id number] 08:07:00 Test Item Value Reference Range Interpretation Comments POC-GLUCOSE METER 137 mg/dL 70-110 H TESTED AT [place] [address] ([facility]) (test code = [facility] Humberto [place] 1538) [address] [id number] 02:27:00 Test Item Value Reference Range Interpretation Comments PARTIAL THROMBOPLASTIN TIME 62.4 seconds 22.5-36.0 H ([facility]) (test code = 760) PROTHROMBIN [id number] 02:26:00 Test Item Value Reference Range Interpretation Comments PROTIME (BEAKER) (test code = 20.0 seconds 11.7-14.7 H 759) INR (BEAKER) (test code = 370) 1.7 <=5.9 RECOMMENDED COUMADIN/WARFARIN INR THERAPY RANGESSTANDARD DOSE: 2.0 - 3.0 Includes: PROPHYLAXIS forvenous thrombosis, systemic embolization; TREATMENT for venous thrombosis and/or pulmonary embolus.HIGH RISK: Target INR is 2.5-3.5 for patients with mechanical heart valves.BASIC METABOLIC [id number] 02:02:00 Test Item Value Reference Range Interpretation [...] PATIEN TS. CBC W/PLT COUNT & AUTO [id number] 01:42:00 Test Item Value Reference Range Interpretation [...] PERCENT (BEAKER) (test code = 2801) POCT-GLUCOSE [id number] 21:12:00 Test Item Value Reference Range Interpretation Comments POC-GLUCOSE METER 199 mg/dL 70-110 H TESTED AT [facility] 67[facility] (test code = FOSTER Paul [facility] 1538) [address] POCT-GLUCOSE [id number] 17:39:00 Test Item Value Reference Range Interpretation Comments POC-GLUCOSE METER 145 mg/dL 70-110 H TESTED AT [facility] 6720 ([facility]) (test code = [facility] 1538) [address] [id number] 17:33:00 Test Item Value Reference Range Interpretation Comments PARTIAL THROMBOPLASTIN TIME 47.3 seconds 22.5-36.0 H (BEAKER) (test code = 760) POCT-GLUCOSE [id number] 12:53:00 Test Item Value Reference Range Interpretation Comments POC-GLUCOSE METER 203 mg/dL 70-110 H TESTED AT [facility] 67[address] ([facility]) (test code = [facility] 1538) [address] POCT-GLUCOSE [id number] 08:28:00 Test Item Value Reference Range Interpretation Comments POC-GLUCOSE METER 98 mg/dL 70-110 TESTED AT [place] [address] ([facility]) (test code = [facility] [address] 1538) BASIC METABOLIC [id number] 05:52:00 Test Item Value Reference Range Interpretation [...] NOT APPLICABLE FOR DIALYSIS PATIEN TS. PROTHROMBIN [id number] 05:51:00 Test Item Value Reference Range Interpretation [...] PERCENT (BEAKER) (test code = 2801) POCT-GLUCOSE [id number] 20:54:00 Test Item Value Reference Range Interpretation Comments POC-GLUCOSE METER 126 mg/dL 70-110 H TESTED AT [place] [address] ([facility]) (test code = [facility] Humberto [facility] 1538) [address] POCT-GLUCOSE [id number] 18:47:00 Test Item Value Reference Range Interpretation Comments POC-GLUCOSE METER 70 mg/dL 70-110 TESTED AT [place] [address] ([facility]) (test code = [facility] [address] 1538) POCT-GLUCOSE [id number] 13:25:00 Test Item Value Reference Range Interpretation Comments POC-GLUCOSE METER 120 mg/dL 70-110 H TESTED AT [place] [address] ([facility]) (test code = [facility] 1538) [address] POCT-GLUCOSE [id number] 09:32:00 Test Item Value Reference Range Interpretation Comments POC-GLUCOSE METER 104 mg/dL 70-110 TESTED AT [place] [address] ([facility]) (test code = [facility] 1538) [address] BASIC METABOLIC [id number] 05:59:00 Test Item Value Reference Range Interpretation [...] NOT APPLICABLE FOR DIALYSIS PATIEN TS. PROTHROMBIN [id number] 05:20:00 Test Item Value Reference Range Interpretation [...] PERCENT (BEAKER) (test code = 2801) POCT-GLUCOSE [id number] 21:14:00 Test Item Value Reference Range Interpretation Comments POC-GLUCOSE METER 200 mg/dL 70-110 H TESTED AT [place] [address] ([facility]) (test code = FOSTER Paul [facility] 1538) [address] POCT-GLUCOSE [id number] 17:34:00 Test Item Value Reference Range Interpretation Comments POC-GLUCOSE METER 143 mg/dL 70-110 H TESTED AT [place] [address] ([facility]) (test code = FOSTER Paul [facility] 1538) [address] POCT-GLUCOSE [id number] 12:04:00 Test Item Value Reference Range Interpretation Comments POC-GLUCOSE METER 160 mg/dL 70-110 H TESTED AT [place] [address] ([facility]) (test code = FOSTER Paul [facility] 1538) [address] POCT-GLUCOSE [id number] 08:08:00 Test Item Value Reference Range Interpretation Comments POC-GLUCOSE METER 154 mg/dL 70-110 H TESTED AT [place] [address] ([facility]) (test code = FOSTER Paul [facility] 1538) [address] BASIC METABOLIC [id number] 06:33:00 Test Item Value Reference Range Interpretation [...] S NOT APPLICABLE FOR DIALYSIS PATIEN TS. [id number] 06:01:00 Test Item Value Reference Range Interpretation Comments PARTIAL THROMBOPLASTIN TIME 117.2 seconds 22.5-36.0 H (BEAKER) (test code = 760) PROTHROMBIN [id number] 05:56:00 Test Item Value Reference Range Interpretation [...] PERCENT (BEAKER) (test code = 2801) POCT-GLUCOSE [id number] 21:37:00 Test Item Value Reference Range Interpretation Comments POC-GLUCOSE METER 121 mg/dL 70-110 H TESTED AT [facility] 6720 (BEAKER) (test code = [place] 1538) [address] POCT-GLUCOSE [id number] 19:01:00 Test Item Value Reference Range Interpretation Comments POC-GLUCOSE METER 191 mg/dL 70-110 H TESTED AT [facility] 6720 (BEAKER) (test code = [place] 1538) [address] [id number] 18:31:00 Test Item Value Reference Range Interpretation Comments PARTIAL THROMBOPLASTIN TIME 86.2 seconds 22.5-36.0 H (BEAKER) (test code = 760) POCT-GLUCOSE [id number] 13:05:00 Test Item Value Reference Range Interpretation Comments POC-GLUCOSE METER 130 mg/dL 70-110 H TESTED AT [facility] 6720 (BEAKER) (test code = FOSTER Paul [facility] 1538) [address] RAD, CHEST, 1 VIEW, NON [id number] 12:22:00Reason for exam:->pleural effusionsShould this be performed [...] MDReport Verified Date/Time: 12/07/2018 12:22:50 Reading Location: [address] Neuro Reading Room [id number] 11:39:00 Test Item Value Reference Range Interpretation Comments PARTIAL THROMBOPLASTIN TIME 100.1 seconds 22.5-36.0 H (BEAKER) (test code = 760) BODY FLUID CULTURE + GRAM [id number] 10:13:00 Test Item Value Reference Range Interpretation Comments CULTURE (BEAKER) (test No growth code = 1095) GRAM STAIN RESULT <1+ White blood cells (BEAKER) (test code = seen 1123) GRAM STAIN RESULT No organisms seen (BEAKER) (test code = 43636) POCT-GLUCOSE [id number] 08:51:00 Test Item Value Reference Range Interpretation Comments POC-GLUCOSE METER 90 mg/dL 70-110 TESTED AT [facility] 6720 (BEAKER) (test code = [place] [address] 1538) BASIC METABOLIC [id number] 07:31:00 Test Item Value Reference Range Interpretation [...] S NOT APPLICABLE FOR DIALYSIS PATIEN TS. [id number] 05:21:00 Test Item Value Reference Range Interpretation Comments PARTIAL THROMBOPLASTIN TIME 104.0 seconds 22.5-36.0 H (BEAKER) (test code = 760) PROTHROMBIN [id number] 04:50:00 Test Item Value Reference Range Interpretation [...] 0-1 PERCENT (BEAKER) (test code = 2801) [id number] 20:33:00 Test Item Value Reference Range Interpretation Comments PARTIAL THROMBOPLASTIN TIME 87.6 seconds 22.5-36.0 H (BEAKER) (test code = 760) POCT-GLUCOSE [id number] 19:30:00 Test Item Value Reference Range Interpretation Comments POC-GLUCOSE METER 112 mg/dL 70-110 H TESTED AT [facility] 6720 (BEAKER) (test code = MARIA [place] 1538) [id number] 13:55:00 Test Item Value Reference Range Interpretation Comments PARTIAL THROMBOPLASTIN TIME 85.9 seconds 22.5-36.0 H (BEAKER) (test code = 760) POCT-GLUCOSE [id number] 09:12:00 Test Item Value Reference Range Interpretation Comments POC-GLUCOSE METER 112 mg/dL 70-110 H [facility] (test code = [facility] 1538) [id number] BASIC METABOLIC [id number] 08:53:00 Test Item Value Reference Range Interpretation [...] S NOT APPLICABLE FOR DIALYSIS PATIEN TS. [id number] 06:04:00 Test Item Value Reference Range Interpretation Comments PARTIAL THROMBOPLASTIN TIME 105.5 seconds 22.5-36.0 H (BEAKER) (test code = 760) PROTHROMBIN TIME/[id number] 05:44:00 Test Item Value Reference Range Interpretation [...] (test code = 2801) CT, CHEST, WITHOUT [id number] 03:17:00FINAL REPORT EXAM: CT of the chest, [...] left pleural effusion with associated compressive atelectasis. Mdiwk-gu-tggjykho loculated right pleural effusion with pleural thickening [...] MDReport Verified Date/Time: 12/06/2018 03:17:03 Reading Location: [facility] B1 C013Y CT Body Reading Room POCT-GLUCOSE [id number] 21:22:00 Test Item Value Reference Range Interpretation Comments POC-GLUCOSE METER 171 mg/dL 70-110 H TESTED AT [place] [address] ([facility]) (test code = FOSTER Paul [facility] 1538) [address] POCT-GLUCOSE [id number] 17:58:00 Test Item Value Reference Range Interpretation Comments POC-GLUCOSE METER 128 mg/dL 70-110 H TESTED AT [place] [address] ([facility]) (test code = [facility] Humberto [facility] 1538) [address] POCT-GLUCOSE [id number] 13:24:00 Test Item Value Reference Range Interpretation Comments POC-GLUCOSE METER 129 mg/dL 70-110 H TESTED AT [place] [address] ([facility]) (test code = FOSTER Paul [facility] 1538) [address] LACTATE DEHYDROGENASE (LDH)2018-12-05 13:14:00 Test Item Value Reference Range Interpretation Comments LACTATE DEHYDROGENASE ([facility]) (test 291 U/L 125-220 H code = 635) [id number] 13:10:00 Test Item Value Reference Range Interpretation Comments PARTIAL THROMBOPLASTIN TIME 91.7 seconds 22.5-36.0 H ([facility]) (test code = 760) POCT-GLUCOSE [id number] 08:19:00 Test Item Value Reference Range Interpretation Comments POC-GLUCOSE METER 106 mg/dL 70-110 TESTED AT [place] [address] ([facility]) (test code = [facility] Humberto [facility] 1538) [address] BASIC METABOLIC [id number] 07:05:00 Test Item Value Reference Range Interpretation [...] S NOT APPLICABLE FOR DIALYSIS PATIEN TS. [id number] 06:32:00 Test Item Value Reference Range Interpretation [...] 2.5-3.5 for patients with mechanical heart valves.PROTHROMBIN [id number] 06:30:00 Test Item Value Reference Range Interpretation [...] 0-1 PERCENT (BEAKER) (test code = 2801) [id number] 00:40:00 Test Item Value Reference Range Interpretation Comments PARTIAL THROMBOPLASTIN TIME 63.1 seconds 22.5-36.0 H (BEAKER) (test code = 760) POCT-GLUCOSE [id number] 00:12:00 Test Item Value Reference Range Interpretation Comments POC-GLUCOSE METER 124 mg/dL 70-110 H TESTED AT [facility] 6720 (BEAKER) (test code = [place] 1538) [address] HEPATITIS B SURFACE [id number] 22:54:00 Test Item Value Reference Range Interpretation Comments HEPATITIS B SURFACE ANTIGEN (2) Nonreactive Nonreactive (BEAKER) (test code = 2585) For chronic HD patients, draw HBsAg with each admission then every 30 days.BODY FLUID CELL COUNT WITH [id number] 20:34:00 Test Item Value Reference Range Interpretation Comments APPEARANCE FLUID (BEAKER) (test Cloudy Clear A code = 510) COLOR FLUID (BEAKER) (test code Brown Colorless, Straw A = 511) RBC FLUID (BEAKER) (test code = 63982 /cu mm <=1 H 513) ADJUSTED WBC [...] code = 2873) LACTATE DEHYDROGENASE (LDH), BODY [id number] 19:43:00 Test Item Value Reference Range Interpretation [...] local 1% lidocaine anesthesia was administered.A 4 Lithuanian catheter was advanced into the largest pocket of the septated pleural effusion and 300 ccof bloody fluid was removed. The catheter was removed without immediate complication. Samples were sent for analysis. IMPRESSION:Uncomplicated ultrasound-guided right thoracentesis with 300 cc fluid removed. Signed: Raimundo Kim MDReport Verified Date/Time: 12/04/2018 18:00:50 Reading Location: [address] Ultrasound Reading Room RAD, CHEST, 1 VIEW, NON [id number] 17:23:00Reason for exam:->s/p right thoracentesisShould this be [...] MDReport Verified Date/Time: 12/04/2018 17:23:06 Reading Location: [facility] Mammo Reading Room C. DIFFICILE GDH [id number] 10:01:00 Test Item Value Reference Range Interpretation Comments CDT TOXIN (test code Negative Negative = [id number]) CDT GDH ANTIGEN Positive Negative A C. difficile present but (test code = toxin not detec jayla. [id number]) Indicates colon ization with non-toxige ron strain [...] of kit performance was done by the [facility] Microbiology Lab prior to clinical use.[id number] 09:39:00 Test Item Value Reference Range Interpretation Comments PARTIAL THROMBOPLASTIN TIME 79.4 seconds 22.5-36.0 H (BEAKER) (test code = 760) OCCULT BLOOD, [id number] 05:59:00 Test Item Value Reference Range Interpretation Comments FECAL OCCULT BLOOD (BEAKER) (test Negative Negative code = 618) BASIC METABOLIC [id number] 02:50:00 Test Item Value Reference Range Interpretation [...] S NOT APPLICABLE FOR DIALYSIS PATIEN TS. [id number] 02:50:00 Test Item Value Reference Range Interpretation Comments PARTIAL THROMBOPLASTIN TIME 35.3 seconds 22.5-36.0 (BEAKER) (test code = 760) Prior to initiating heparinPROTHROMBIN TIME/[id number] 02:49:00 Test Item Value Reference Range Interpretation [...] acute neurological disease, and persistent tachyarrhythmia.HEPATIC FUNCTION [id number] 02:43:00 Test Item Value Reference Range Interpretation [...] 6-55 347) CBC W/PLT COUNT & AUTO [id number] 02:21:00 Test Item Value Reference Range Interpretation [...] PERCENT (BEAKER) (test code = 2801) POCT-GLUCOSE [id number] 21:22:00 Test Item Value Reference Range Interpretation Comments POC-GLUCOSE METER 192 mg/dL 70-110 H TESTED AT [facility] 6720 (JARROD) (test code = [place] 1538) [address] TROPONIN [id number] 17:09:00 Test Item Value Reference Range Interpretation [...] and persistent tachyarrhythmia.RAD, CHEST, 1 VIEW, NON [id number] 15:36:00Reason for exam:->SHORTNESS OF BREATHShould this be performed at the bedside?->YesFINAL REPORT AP chest HISTORY: Shortness of breath. COMPARISON: 11/03/2017. IMPRESSION: Cardiomegaly. Mild interstitial edema. Right effusion and adjacent atelectasis. No pneumothorax. Signed: [facility] Verified Date/Time: 12/03/2018 15:36:19 Reading Location: [address] Radiology Reading Room TROPONIN [id number] 14:48:00 Test Item Value Reference Range Interpretation [...] (BEAKER) (test code = 700) BASIC METABOLIC [id number] 14:40:00 Test Item Value Reference Range Interpretation [...] S NOT APPLICABLE FOR DIALYSIS PATIEN TS. [id number] 14:34:00 Test Item Value Reference Range Interpretation [...] (test code = 2801) RAD, CHEST, 2 [id number] 15:24:00Reason for Exam:->chronic Diastolic heart FailureFINAL REPORT [...] MDReport Verified Date/Time: 11/03/2018 15:24:42 Reading Location: [address] Radiology Reading Room MISCELLANEOUS LAB [id number] 08:22:00 Test Item Value Reference Range Interpretation Comments SCAN RESULT (test code = 8091170) PROTHROMBIN [id number] 08:37:00 Test Item Value Reference Range Interpretation Comments PROTIME (BEAKER) (test code = 24.8 seconds 11.7-14.7 H 759) INR (BEAKER) (test code = 370) 2.2 <=5.9 RECOMMENDED COUMADIN/WARFARIN INR THERAPY RANGESSTANDARD DOSE: 2.0 - 3.0 Includes: PROPHYLAXIS forvenous thrombosis, systemic embolization; TREATMENT for venous thrombosis and/or pulmonary embolus.HIGH RISK: Target INR is 2.5-3.5 for patients with mechanical heart valves.POCT-GLUCOSE [id number] 08:10:00 Test Item Value Reference Range Interpretation Comments POC-GLUCOSE METER 89 mg/dL 70-110 TESTED AT [facility] 6720 (BEAKER) (test code = [place] [address] 1538) BASIC METABOLIC [id number] 06:29:00 Test Item Value Reference Range Interpretation [...] S NOT APPLICABLE FOR DIALYSIS PATIEN TS. [id number] 06:28:00 Test Item Value Reference Range Interpretation Comments MAGNESIUM (BEAKER) (test code = 1.8 mg/dL 1.6-2.6 627) [id number] 06:14:00 Test Item Value Reference Range Interpretation Comments PARTIAL THROMBOPLASTIN TIME 64.7 seconds 22.5-36.0 H (BEAKER) (test code = 760) CBC W/PLT COUNT & AUTO [id number] 05:58:00 Test Item Value Reference Range Interpretation [...] PERCENT (BEAKER) (test code = 2801) POCT-GLUCOSE [id number] 21:14:00 Test Item Value Reference Range Interpretation Comments POC-GLUCOSE METER 135 mg/dL 70-110 H TESTED AT [place] [address] ([facility]) (test code = FOSTER BRANDON 1538) [address] [id number] 19:36:00 Test Item Value Reference Range Interpretation Comments PARTIAL THROMBOPLASTIN TIME 88.6 seconds 22.5-36.0 H ([facility]) (test code = 760) POCT-GLUCOSE [id number] 18:27:00 Test Item Value Reference Range Interpretation Comments POC-GLUCOSE METER 88 mg/dL 70-110 TESTED AT [facility] 6720 ([facility]) (test code = [place] [address] 1538) POCT-GLUCOSE [id number] 12:05:00 Test Item Value Reference Range Interpretation Comments POC-GLUCOSE METER 92 mg/dL 70-110 TESTED AT [facility] 6720 ([facility]) (test code = [place] [address] 1538) [id number] 11:46:00 Test Item Value Reference Range Interpretation Comments PARTIAL THROMBOPLASTIN TIME 74.3 seconds 22.5-36.0 H (AKER) (test code = 760) POCT-GLUCOSE [id number] 10:36:00 Test Item Value Reference Range Interpretation Comments POC-GLUCOSE METER 101 mg/dL 70-110 TESTED AT [facility] 67 ([facility]) (test code = FOSTER Paul [facility] 1538) [address] POCT-GLUCOSE [id number] 07:10:00 Test Item Value Reference Range Interpretation Comments POC-GLUCOSE METER 92 mg/dL 70-110 TESTED AT [place] [address] ([facility]) (test code = FOSTER Paul [facility] [address] 1538) PROTHROMBIN [id number] 01:41:00 Test Item Value Reference Range Interpretation Comments PROTIME (BEAKER) (test code = 22.8 seconds 11.7-14.7 H 759) INR ([facility]) (test code = 370) 2.0 <=5.9 RECOMMENDED COUMADIN/WARFARIN INR THERAPY RANGESSTANDARD DOSE: 2.0 - 3.0 Includes: PROPHYLAXIS forvenous thrombosis, systemic embolization; TREATMENT for venous thrombosis and/or pulmonary embolus.HIGH RISK: Target INR is 2.5-3.5 for patients with mechanical heart valves.While on warfarin.[id number] 01:41:00 Test Item Value Reference Range Interpretation Comments PARTIAL THROMBOPLASTIN TIME 52.3 seconds 22.5-36.0 H (BEAKER) (test code = 760) While on warfarin.BASIC METABOLIC [id number] 01:37:00 Test Item Value Reference Range Interpretation [...] S NOT APPLICABLE FOR DIALYSIS PATIEN TS. [id number] 01:32:00 Test Item Value Reference Range Interpretation Comments MAGNESIUM (BEAKER) (test code = 1.8 mg/dL 1.6-2.6 627) CBC W/PLT COUNT & AUTO [id number] 01:18:00 Test Item Value Reference Range Interpretation [...] 0-1 PERCENT (BEAKER) (test code = 2801) [id number] 23:23:00 Test Item Value Reference Range Interpretation Comments PARTIAL THROMBOPLASTIN TIME 125.2 seconds 22.5-36.0 H (BEAKER) (test code = 760) POCT-GLUCOSE [id number] 21:19:00 Test Item Value Reference Range Interpretation Comments POC-GLUCOSE METER 165 mg/dL 70-110 H TEST[facility] AT [place] [address] [facility] (test code = [facility] 1538) [address] POCT-GLUCOSE [id number] 18:34:00 Test Item Value Reference Range Interpretation Comments POC-GLUCOSE METER 92 mg/dL 70-110 TESTED AT [place] [address] ([facility]) (test code = [facility] [address] 1538) [id number] 17:17:00 Test Item Value Reference Range Interpretation Comments PARTIAL THROMBOPLASTIN TIME 75.2 seconds 22.5-36.0 H (BEAKER) (test code = 760) POCT-GLUCOSE [id number] 12:48:00 Test Item Value Reference Range Interpretation Comments POC-GLUCOSE METER 105 mg/dL 70-110 TESTED AT [place] [address] ([facility]) (test code = [facility] 1538) [address] RAD, CHEST, 1 VIEW, NON [id number] 11:00:00Reason for exam:->eval right effusionShould this be performed at the bedside?->YesFINAL REPORT Comparison: 08/15/2018 TECHNIQUE: Single view of the chest FINDINGS: Small to moderate right pleural effusion is stable. Small left pleural effusion may be slightly increased. Vascular congestion seen. No other significant change. Signed: Kyle Rome MDReport Verified Date/Time: 08/18/2018 11:00:36 Reading Location: [facility] Radiology Reading Room Electronicallysigned by: KYLE ROME M.D. on 08/18/2018 11:00 [id number] 09:48:00 Test Item Value Reference Range Interpretation Comments PARTIAL THROMBOPLASTIN TIME 48.8 seconds 22.5-36.0 H (BEAKER) (test code = 760) POCT-GLUCOSE [id number] 07:37:00 Test Item Value Reference Range Interpretation Comments POC-GLUCOSE METER 96 mg/dL 70-110 TESTED AT [facility] 6720 (BEAKER) (test code = FOSTER Paul [facility] [address] 1538) BASIC METABOLIC [id number] 02:24:00 Test Item Value Reference Range Interpretation [...] S NOT APPLICABLE FOR DIALYSIS PATIEN TS. [id number] 02:22:00 Test Item Value Reference Range Interpretation Comments MAGNESIUM (BEAKER) (test code = 1.7 mg/dL 1.6-2.6 627) [id number] 02:15:00 Test Item Value Reference Range Interpretation Comments PARTIAL THROMBOPLASTIN TIME 98.9 seconds 22.5-36.0 H (BEAKER) (test code = 760) PROTHROMBIN [id number] 02:13:00 Test Item Value Reference Range Interpretation [...] PERCENT (BEAKER) (test code = 2801) POCT-GLUCOSE [id number] 21:51:00 Test Item Value Reference Range Interpretation Comments POC-GLUCOSE METER 98 mg/dL 70-110 TESTED AT [place] [address] ([facility]) (test code = [facility] [address] 1538) [id number] 18:51:00 Test Item Value Reference Range Interpretation Comments PARTIAL THROMBOPLASTIN TIME 56.1 seconds 22.5-36.0 H (BEAKER) (test code = 760) [id number] 17:06:00 Test Item Value Reference Range Interpretation Comments PARTIAL THROMBOPLASTIN TIME 121.9 seconds 22.5-36.0 H (BEAKER) (test code = 760) POCT-GLUCOSE [id number] 16:46:00 Test Item Value Reference Range Interpretation Comments POC-GLUCOSE METER 135 mg/dL 70-110 H TESTED AT [place] [address] ([facility]) (test code = [facility] 1538) [address] POCT-GLUCOSE [id number] 13:28:00 Test Item Value Reference Range Interpretation Comments POC-GLUCOSE METER 96 mg/dL 70-110 TESTED AT [facility] 6720 (BEAKER) (test code = FOSTER BRAND[place] [address] 1538) [id number] 09:15:00 Test Item Value Reference Range Interpretation Comments PARTIAL THROMBOPLASTIN TIME 58.1 seconds 22.5-36.0 H (BEAKER) (test code = 760) BASIC METABOLIC [id number] 07:31:00 Test Item Value Reference Range Interpretation [...] S NOT APPLICABLE FOR DIALYSIS PATIEN TS. [id number] 07:19:00 Test Item Value Reference Range Interpretation Comments PHOSPHORUS (BEAKER) (test code = 3.7 mg/dL 2.3-4.7 604) [id number] 07:19:00 Test Item Value Reference Range Interpretation Comments MAGNESIUM (BEAKER) (test code = 1.7 mg/dL 1.6-2.6 627) [id number] 07:07:00 Test Item Value Reference Range Interpretation Comments PARTIAL THROMBOPLASTIN TIME 124.4 seconds 22.5-36.0 H (BEAKER) (test code = 760) PROTHROMBIN [id number] 07:02:00 Test Item Value Reference Range Interpretation [...] 0-1 PERCENT (BEAKER) (test code = 2801) [id number] 23:01:00 Test Item Value Reference Range Interpretation Comments PARTIAL THROMBOPLASTIN TIME 46.5 seconds 22.5-36.0 H (BEAKER) (test code = 760) POCT-GLUCOSE [id number] 22:45:00 Test Item Value Reference Range Interpretation Comments POC-GLUCOSE METER 144 mg/dL 70-110 H TESTED AT [place] [address] ([facility]) (test code = [place] 1538) [address] [id number] 15:02:00 Test Item Value Reference Range Interpretation Comments PARTIAL THROMBOPLASTIN TIME 56.1 seconds 22.5-36.0 H ([facility]) (test code = 760) POCT-GLUCOSE [id number] 14:39:00 Test Item Value Reference Range Interpretation Comments POC-GLUCOSE METER 189 mg/dL 70-110 H TESTED AT [place] [address] ([facility]) (test code = [place] 1538) [address] HIV-1 PCR, [id number] 13:58:00 Test Item Value Reference Range Interpretation Comments HIV-1 NUMERIC RESULT (BEAKER) (test 170 Cp/mL <20 H code = 2704) This test uses a Real-Time Polymerase Chain Reaction (RT-PCR) methodology to detect a highly conserved region of the HIV-1 gag gene and was performed using the ERICH AmpliPrep/ERICH TaqMan HIV-1 test kit version 2.0 ([employer]Reportable range for this assay is 20 - 10,000,000 copies per mL (1.3 - 7.0 Log copies/mL).[id number] 12:54:00 Test Item Value Reference Range Interpretation Comments PARTIAL THROMBOPLASTIN TIME 143.6 seconds 22.5-36.0 H (BEAKER) (test code = 760) [id number] 10:00:00Medical Cytology Report Case: [id number] Authorizing Provider: Alison Solano MD Collected: 08/13/2018 1803 Ordering Location: [address] Received: 08/14/2018 0917 Service Pathologist: Yamil Hamm MD Specimen: Pleural, Right RIGHT PLEURAL FLUID (CYTOSPINS AND CELL BLOCK): - NO MALIGNANT CELLS IDENTIFIED (SEE COMMENT) Signing Pathologist Direct Phone Line: [phone] signed by Yamil Hamm MD on 08/16/2018 [...] thoracentesis may be considered when fluid reaccumulates. [address]96, 52024, [address]6915, 46397 x 2Left pleural effusion, history of AIDS, Kaposi's sarcoma, hepatitis C.RIGHT PLEURAL FLUID 300 mls bloody; 4 cytospins, cell blockCollected: [id number]: [id number] interpretation of this case included the use of immunohistochemistry or special stains. Please see the immunohistochemistry results in the COMMENT section. Immunohistochemistry technical testing was performed at [facility], Pathology Laboratory where it was developed and [...] Improvement Amendments of 1988 (CLIA-88) as qualified toperunc health high complexity clinical laboratory testing.[facility], Department of Pathology, [address] [place] [address], [facility], [facility] of [facility], [address] [place] [address], [facility], [facility] of [facility], [address] [place] [address], JZDI-GLUCOSE [id number] 08:29:00 Test Item Value Reference Range Interpretation Comments POC-GLUCOSE METER 96 mg/dL 70-110 TEST[facility] AT [place] [address] [facility] (test code = FOSTER Paul [facility] [id number] 0358) BODY FLUID CULTURE + GRAM [id number] 07:54:00 Test Item Value Reference Range Interpretation Comments CULTURE (BEAKER) (test code No growth = 1095) GRAM STAIN RESULT (BEAKER) <1+ WBCs (test code = 1123) GRAM STAIN RESULT (BEAKER) No organisms seen (test code = 23890) BASIC METABOLIC [id number] 06:30:00 Test Item Value Reference Range Interpretation [...] S NOT APPLICABLE FOR DIALYSIS PATIEN TS. [id number] 06:26:00 Test Item Value Reference Range Interpretation Comments MAGNESIUM (BEAKER) (test code = 1.6 mg/dL 1.6-2.6 627) [id number] 05:48:00 Test Item Value Reference Range Interpretation Comments PARTIAL THROMBOPLASTIN TIME 80.3 seconds 22.5-36.0 H (BEAKER) (test code = 760) While on warfarin.PROTHROMBIN [id number] 05:46:00 Test Item Value Reference Range Interpretation [...] valves.While on warfarin.CBC W/PLT COUNT & AUTO [id number] 05:28:00 Test Item Value Reference Range Interpretation [...] 0-1 PERCENT (BEAKER) (test code = 2801) [id number] 22:09:00 Test Item Value Reference Range Interpretation Comments PARTIAL THROMBOPLASTIN TIME 61.5 seconds 22.5-36.0 H (BEAKER) (test code = 760) RAD, CHEST, 1 VIEW, NON [id number] 20:20:00Reason for exam:->eval right effusionShould this be [...] Anderson Verified Date/Time: 08/15/2018 20:20:24 Reading Location: [facility] Radiology Reading Room POCT-GLUCOSE [id number] 19:05:00 Test Item Value Reference Range Interpretation Comments POC-GLUCOSE METER 87 mg/dL 70-110 TESTED AT [place] [address] ([facility]) ([facility] [address] 1538) POCT-GLUCOSE [id number] 13:12:00 Test Item Value Reference Range Interpretation Comments POC-GLUCOSE METER 162 mg/dL 70-110 H TESTED AT [place] [address] ([facility]) (test code = [facility] 1538) [address] [id number] 12:48:00 Test Item Value Reference Range Interpretation Comments PARTIAL THROMBOPLASTIN TIME 89.1 seconds 22.5-36.0 H ([facility]) (test code = 760) POCT-GLUCOSE [id number] 09:58:00 Test Item Value Reference Range Interpretation Comments POC-GLUCOSE METER 229 mg/dL 70-110 H TESTED AT [place] [address] ([facility]) (test code = [facility] 1538) [address] BASIC METABOLIC [id number] 05:40:00 Test Item Value Reference Range Interpretation [...] PATIEN TS. CBC W/PLT COUNT & AUTO [id number] 05:38:00 Test Item Value Reference Range Interpretation [...] 0-1 PERCENT (BEAKER) (test code = 2801) [id number] 05:28:00 Test Item Value Reference Range Interpretation Comments MAGNESIUM (BEAKER) (test code = 1.8 mg/dL 1.6-2.6 627) [id number] 04:47:00 Test Item Value Reference Range Interpretation Comments PARTIAL THROMBOPLASTIN TIME 60.9 seconds 22.5-36.0 H (BEAKER) (test code = 760) PROTHROMBIN [id number] 04:46:00 Test Item Value Reference Range Interpretation Comments PROTIME (BEAKER) (test code = 17.9 seconds 11.7-14.7 H 759) INR (BEAKER) (test code = 370) 1.5 <=5.9 RECOMMENDED COUMADIN/WARFARIN INR THERAPY RANGESSTANDARD DOSE: 2.0 - 3.0 Includes: PROPHYLAXIS forvenous thrombosis, systemic embolization; TREATMENT for venous thrombosis and/or pulmonary embolus.HIGH RISK: Target INR is 2.5-3.5 for patients with mechanical heart valves.[id number] 20:56:00 Test Item Value Reference Range Interpretation Comments PARTIAL THROMBOPLASTIN TIME 52.1 seconds 22.5-36.0 H (BEAKER) (test code = 760) CT, CHEST, WITHOUT [id number] 19:06:00S/p fall in Nov--> right effusion, tapped [...] right paratracheal mediastinal lymph node. Signed: [facility] Verified Date/Time: 08/14/2018 19:06:09 Reading Location: [address] Reading Room [id number] 12:40:00 Test Item Value Reference Range Interpretation Comments PARTIAL THROMBOPLASTIN TIME 48.4 seconds 22.5-36.0 H (BEAKER) (test code = 760) CD4 T CELL [id number] 11:15:00 Test Item Value Reference Range Interpretation [...] 107-698 L (BEAKER) (test code = 3491) [id number] 10:48:00 Test Item Value Reference Range Interpretation Comments PHOSPHORUS (BEAKER) (test code = 5.2 mg/dL 2.3-4.7 H 604) BASIC METABOLIC [id number] 07:13:00 Test Item Value Reference Range Interpretation [...] S NOT APPLICABLE FOR DIALYSIS PATIEN TS. [id number] 07:11:00 Test Item Value Reference Range Interpretation Comments MAGNESIUM (BEAKER) (test code = 1.8 mg/dL 1.6-2.6 627) [id number] 07:00:00 Test Item Value Reference Range Interpretation Comments PARTIAL THROMBOPLASTIN TIME 59.2 seconds 22.5-36.0 H (BEAKER) (test code = 760) PROTHROMBIN [id number] 06:59:00 Test Item Value Reference Range Interpretation [...] 0-1 PERCENT (BEAKER) (test code = 2801) [id number] 00:30:00 Test Item Value Reference Range Interpretation Comments PARTIAL THROMBOPLASTIN TIME 56.7 seconds 22.5-36.0 H (BEAKER) (test code = 760) BODY FLUID CELL COUNT WITH [id number] 19:28:00 Test Item Value Reference Range Interpretation Comments APPEARANCE FLUID (BEAKER) (test Cloudy Clear A code = 510) COLOR FLUID (BEAKER) (test code Red Colorless, Straw A = 511) RBC FLUID (BEAKER) (test code = 13319 /cu mm <=1 H 513) ADJUSTED WBC [...] Tube (test code = 2873) ALBUMIN, BODY [id number] 18:40:00 Test Item Value Reference Range Interpretation Comments ALBUMIN FLUID (BEAKER) (test code = 2.1 gm/dL 501) Reference Range: No Normals Assay performance has not been validated for this type of specimen.LACTATE DEHYDROGENASE (LDH), BODY [id number] 18:40:00 Test Item Value Reference Range Interpretation [...] 125-220 H code = 635) HEPATIC FUNCTION [id number] 18:40:00 Test Item Value Reference Range Interpretation [...] 6-55 347) RAD, CHEST, 1 VIEW, NON [id number] 17:56:00Reason for exam:->post Right thoracentesisShould this be [...] Arteaga Verified Date/Time: 08/13/2018 17:56:18 Reading Location: [facility] C013W Consult Reading Room U/S, [id number] 16:22:00Reason for exam:->shortness of breath, recurrent right pleural effusionShould this be performed at the bedside?->NoFINAL REPORT Ultrasound guided right thoracentesis, 08/13/2018. Clinical His tory: Right pleural effusion. Modality: Ultrasound. Sedation: None. Construction Secretary: Gini. Pocket Machine Operator: None. Estimated Blood Loss: 1cc Specimen: 1600 [...] Musa Verified Date/Time: 08/13/2018 16:22:16 Reading Location: [facility] B1 P006J Ultrasound Reading Room [id number] 07:18:00 Test Item Value Reference Range Interpretation Comments MAGNESIUM (BEAKER) (test code = 2.0 mg/dL 1.6-2.6 627) BASIC METABOLIC [id number] 07:18:00 Test Item Value Reference Range Interpretation [...] PATIEN TS. RAD, CHEST, 1 VIEW, NON [id number] 06:25:00Reason for exam:->SOBShould this be performed at [...] Taylor Verified Date/Time: 08/13/2018 06:25:21 Reading Location: [address] Transitional Re ading Room [id number] 05:49:00 Test Item Value Reference Range Interpretation Comments PARTIAL THROMBOPLASTIN TIME 42.0 seconds 22.5-36.0 H (BEAKER) (test code = 760) PROTHROMBIN TIME/[id number] 05:48:00 Test Item Value Reference Range Interpretation [...] PERCENT (BEAKER) (test code = 2801) POCT-GLUCOSE [id number] 18:30:00 Test Item Value Reference Range Interpretation Comments POC-GLUCOSE METER 80 mg/dL 70-110 TESTED AT [facility] 67[facility] ([facility] (test code = [place] Paul [facility] [address] 1538) RAD, CHEST, 1 VIEW, NON [id number] 13:46:00Reason for exam:->evaluate pleural effusionShould this be performed at the bedside?->YesFINAL REPORT Comparison: 08/02/2018 TECHNIQUE: Single view of the chest FINDINGS Bilateral interstitial and airspace opacities are stable. Bilateral pleural effusions seen, right greater than left. No gross new lung parenchymal changes. Post surgical changes in the mediastinum. IMPRESSION: No significant interval change. Signed: Kyle Rome MDReport Verified Date/Time: 08/06/2018 13:46:20 Reading Location: [facility] Radiology Reading Room [id number] 09:33:00 Test Item Value Reference Range Interpretation Comments PARTIAL THROMBOPLASTIN TIME 113.6 seconds 22.5-36.0 H (BEAKER) (test code = 760) [id number] 06:48:00 Test Item Value Reference Range Interpretation [...] heart valves.While on warfarin.While on warfarin.BASIC METABOLIC [id number] 06:45:00 Test Item Value Reference Range Interpretation [...] NOT APPLICABLE FOR DIALYSIS PATIEN TS. PROTHROMBIN [id number] 06:43:00 Test Item Value Reference Range Interpretation [...] WBC 0-0 (BEAKER) (test code = 413) [id number] 20:40:00 Test Item Value Reference Range Interpretation Comments PARTIAL THROMBOPLASTIN TIME 81.7 seconds 22.5-36.0 H (BEAKER) (test code = 760) [id number] 14:05:00 Test Item Value Reference Range Interpretation Comments PARTIAL THROMBOPLASTIN TIME 91.5 seconds 22.5-36.0 H (BEAKER) (test code = 760) BASIC METABOLIC [id number] 07:02:00 Test Item Value Reference Range Interpretation [...] S NOT APPLICABLE FOR DIALYSIS PATIEN TS. [id number] 06:47:00 Test Item Value Reference Range Interpretation [...] valves.Ok to add onOk to add onPROTHROMBIN TIME/[id number] 06:46:00 Test Item Value Reference Range Interpretation [...] 0-1 PERCENT (BEAKER) (test code = 2801) [id number] 16:22:00 Test Item Value Reference Range Interpretation Comments PARTIAL THROMBOPLASTIN TIME 76.1 seconds 22.5-36.0 H (BEAKER) (test code = 760) BODY FLUID CULTURE + GRAM [id number] 09:10:00 Test Item Value Reference Range Interpretation Comments CULTURE (BEAKER) (test code No growth = 1095) GRAM STAIN RESULT (BEAKER) <1+ WBCs (test code = 1123) GRAM STAIN RESULT (BEAKER) No organisms seen (test code = 71476) CBC W/PLT COUNT & AUTO [id number] 07:23:00 Test Item Value Reference Range Interpretation [...] (BEAKER) (test code = 413) BASIC METABOLIC [id number] 07:05:00 Test Item Value Reference Range Interpretation [...] S NOT APPLICABLE FOR DIALYSIS PATIEN TS. [id number] 06:53:00 Test Item Value Reference Range Interpretation [...] heart valves.Ok to add onOk to add [id number] 06:53:00 Test Item Value Reference Range Interpretation Comments PARTIAL THROMBOPLASTIN TIME 70.3 seconds 22.5-36.0 H (BEAKER) (test code = 760) PROTHROMBIN TIME/[id number] 06:52:00 Test Item Value Reference Range Interpretation Comments PROTIME (BEAKER) (test code = 17.5 seconds 11.7-14.7 H 759) INR (BEAKER) (test code = 370) 1.4 <=5.9 RECOMMENDED COUMADIN/WARFARIN INR THERAPY RANGESSTANDARD DOSE: 2.0 - 3.0 Includes: PROPHYLAXIS forvenous thrombosis, systemic embolization; TREATMENT for venous thrombosis and/or pulmonary embolus.HIGH RISK: Target INR is 2.5-3.5 for patients with mechanical heart valves.PROTHROMBIN [id number] 06:51:00 Test Item Value Reference Range Interpretation Comments PROTIME (BEAKER) (test code = 17.7 seconds 11.7-14.7 H 759) INR (BEAKER) (test code = 370) 1.5 <=5.9 RECOMMENDED COUMADIN/WARFARIN INR THERAPY RANGESSTANDARD DOSE: 2.0 - 3.0 Includes: PROPHYLAXIS forvenous thrombosis, systemic embolization; TREATMENT for venous thrombosis and/or pulmonary embolus.HIGH RISK: Target INR is 2.5-3.5 for patients with mechanical heart valves.While on warfarin.[id number] 22:47:00 Test Item Value Reference Range Interpretation Comments PARTIAL THROMBOPLASTIN TIME 73.6 seconds 22.5-36.0 H (BEAKER) (test code = 760) [id number] 13:08:00 Test Item Value Reference Range Interpretation Comments PARTIAL THROMBOPLASTIN TIME 49.2 seconds 22.5-36.0 H (BEAKER) (test code = 760) BASIC METABOLIC [id number] 06:56:00 Test Item Value Reference Range Interpretation [...] S NOT APPLICABLE FOR DIALYSIS PATIEN TS. [id number] 06:56:00 Test Item Value Reference Range Interpretation Comments PARTIAL THROMBOPLASTIN TIME 67.5 seconds 22.5-36.0 H (BEAKER) (test code = 760) [id number] 06:45:00 Test Item Value Reference Range Interpretation [...] valves.Ok to add onOk to add onPROTHROMBIN TIME/[id number] 06:44:00 Test Item Value Reference Range Interpretation [...] /100 WBC 0-0 (test code = 413) [id number] 02:18:00 Test Item Value Reference Range Interpretation Comments PARTIAL THROMBOPLASTIN TIME 67.1 seconds 22.5-36.0 H (BEAKER) (test code = 760) [id number] 18:56:00 Test Item Value Reference Range Interpretation Comments PARTIAL THROMBOPLASTIN TIME 72.5 seconds 22.5-36.0 H (BEAKER) (test code = 760) POCT-GLUCOSE [id number] 13:08:00 Test Item Value Reference Range Interpretation Comments POC-GLUCOSE METER 121 mg/dL 70-110 H TESTED AT [facility] 67[address] ([facility]) (test code = [place] 1538) [address] [id number] 12:07:00 Test Item Value Reference Range Interpretation Comments PARTIAL THROMBOPLASTIN TIME 50.7 seconds 22.5-36.0 H (BEAKER) (test code = 760) Ok to add onPROTHROMBIN TIME/[id number] 12:05:00 Test Item Value Reference Range Interpretation [...] = 413) RAD, CHEST, 1 VIEW, NON [id number] 11:24:00Reason for exam:->pleural effusionShould this be performed at the bedside?->YesFINAL REPORT AP chest HISTORY: Pleural effusion COMPARISON: 08/01/2018 IMPRESS ION:Intact skeleton. Cardiomegaly. Moderate interstitial edema. Moderate right and small left effusions. No pneumothorax. Signed: Mandy Chairez MDReport Verified Date/Time: 08/02/2018 11:24:33 Reading Location: [place] [id number] Ortho Consult Reading Room BASIC METABOLIC [id number] 02:55:00 Test Item Value Reference Range Interpretation [...] S NOT APPLICABLE FOR DIALYSIS PATIEN TS. [id number] 02:39:00 Test Item Value Reference Range Interpretation Comments PARTIAL THROMBOPLASTIN TIME 51.6 seconds 22.5-36.0 H (BEAKER) (test code = 760) CBC W/PLT COUNT & AUTO [id number] 02:30:00 Test Item Value Reference Range Interpretation [...] = 2801) BODY FLUID CELL COUNT WITH [id number] 21:13:00 Test Item Value Reference Range Interpretation Comments APPEARANCE FLUID (BEAKER) (test Bloody Clear A code = 510) COLOR FLUID (BEAKER) (test code Sunil Colorless, Straw A = 511) RBC FLUID (BEAKER) (test code = 67028 /cu mm <=1 H 513) ADJUSTED WBC [...] Tube (test code = 2873) ALBUMIN, BODY [id number] 20:00:00 Test Item Value Reference Range Interpretation Comments ALBUMIN FLUID (BEAKER) (test code = 2.1 gm/dL 501) Reference Range: No Normals Assay performance has not been validated for this type of specimen.LACTATE DEHYDROGENASE (LDH), BODY [id number] 20:00:00 Test Item Value Reference Range Interpretation [...] of specimen.RAD, CHEST, PA OR AP, 1 [id number] 17:08:00Ultrasound Room 1Reason for exam:->s/p Right sided [...] Vail Verified Date/Time: 08/01/2018 17:08:13 Reading Location: [facility] Radiology Reading Room U/S, [id number] 17:03:00 Laterality?->RightReason for exam:->large pleural effusionFINAL REPORT HISTORY: Right pleural effusion Following informed written consent, the patient's right posterior chest wall was prepped and draped in the usual sterile manner. 2% lidocaine was given locally for anesthesia. No conscious sedation was administered. Vital signs were monitored and remained stable. Using ultrasound guidance and a 5 Lithuanian angiocatheter, access was gain ed to the [...] Seymour Verified Date/Time: 08/01/2018 17:03:15 Reading Location: [facility] P006J Ultrasound Reading Room RAD, CHEST, 1 VIEW, NON [id number] 12:40:00Reason for exam:->pleural effusion; shortness of breathShould [...] MDReport Verified Date/Time: 08/01/2018 12:40:42 Reading Location: [facility] Radiology Reading Room APTT 2018-08-01 11:33:00 Test Item Value Reference Range Interpretation Comments PARTIAL THROMBOPLASTIN TIME 118.1 seconds 22.5-36.0 H (BEAKER) (test code = 760) BASIC METABOLIC [id number] 02:07:00 Test Item Value Reference Range Interpretation [...] S NOT APPLICABLE FOR DIALYSIS PATIEN TS. [id number] 01:55:00 Test Item Value Reference Range Interpretation [...] is 2.5-3.5 for patients with mechanical heart valves.[id number] 01:55:00 Test Item Value Reference Range Interpretation Comments PARTIAL THROMBOPLASTIN TIME 96.8 seconds 22.5-36.0 H (BEAKER) (test code = 760) CBC W/PLT COUNT & AUTO [id number] 01:38:00 Test Item Value Reference Range Interpretation [...] 0-1 PERCENT (BEAKER) (test code = 2801) [id number] 18:58:00 Test Item Value Reference Range Interpretation Comments PARTIAL THROMBOPLASTIN TIME 61.7 seconds 22.5-36.0 H (BEAKER) (test code = 760) [id number] 09:22:00 Test Item Value Reference Range Interpretation Comments PARTIAL THROMBOPLASTIN TIME 61.5 seconds 22.5-36.0 H (BEAKER) (test code = 760) BASIC METABOLIC [id number] 02:14:00 Test Item Value Reference Range Interpretation [...] S NOT APPLICABLE FOR DIALYSIS PATIEN TS. [id number] 01:43:00 Test Item Value Reference Range Interpretation [...] is 2.5-3.5 for patients with mechanical heart valves.[id number] 01:43:00 Test Item Value Reference Range Interpretation Comments PARTIAL THROMBOPLASTIN TIME 62.7 seconds 22.5-36.0 H (BEAKER) (test code = 760) CBC W/PLT COUNT & AUTO [id number] 01:32:00 Test Item Value Reference Range Interpretation [...] 0-1 PERCENT (BEAKER) (test code = 2801) [id number] 18:38:00 Test Item Value Reference Range Interpretation Comments PARTIAL THROMBOPLASTIN TIME 38.9 seconds 22.5-36.0 H (BEAKER) (test code = 760) Prior to initiating heparinPLATELET [id number] 18:17:00 Test Item Value Reference Range Interpretation Comments PLATELET COUNT (BEAKER) (test 115 K/CU MM 150-450 L code = 756) RAD, CHEST, 2 [id number] 18:05:00Reason for exam:->sob and pleural effusionFINAL REPORT [...] MDReport Verified Date/Time: 07/30/2018 18:05:46Reading Location: [facility] C[facility] Consult Reading Room C METABOLIC [id number] 05:26:00 Test Item Value Reference Range Interpretation [...] S NOT APPLICABLE FOR DIALYSIS PATIEN TS. PT/[id number] 05:25:00 Test Item Value Reference Range Interpretation [...] 2.5-3.5 for patients with mechanical heart valves.PROTHROMBIN TIME/[id number] 05:24:00 Test Item Value Reference Range Interpretation [...] (test code = 2801) HEPATITIS B SURFACE [id number] 12:09:00 Test Item Value Reference Range Interpretation Comments HEPATITIS B SURFACE ANTIGEN (2) Nonreactive Nonreactive (BEAKER) (test code = 2585) POCT-GLUCOSE [id number] 07:50:00 Test Item Value Reference Range Interpretation Comments POC-GLUCOSE METER 93 mg/dL 70-110 TESTED AT [facility] 6720 (BEAKER) (test code = [place] [address] 1538) [id number] 04:59:00 Test Item Value Reference Range Interpretation [...] for patients with mechanical heart valves.BASIC METABOLIC [id number] 04:59:00 Test Item Value Reference Range Interpretation [...] PATIEN TS. CBC W/PLT COUNT & AUTO [id number] 04:51:00 Test Item Value Reference Range Interpretation [...] (test code = 2801) AFB CULTURE + [id number] 16:13:00 Test Item Value Reference Range Interpretation Comments CULTURE (BEAKER) (test No acid-fast bacilli code = 1095) isolated in 42 days AFB SMEAR (BEAKER) No acid fast bacilli (test code = 994) seen AFB CULTURE + [id number] 16:13:00 Test Item Value Reference Range Interpretation Comments CULTURE (BEAKER) (test No acid-fast bacilli code = 1095) isolated in 42 days AFB SMEAR (BEAKER) No acid fast bacilli (test code = 994) seen FUNGUS CULTURE + [id number] 07:13:00 Test Item Value Reference Range Interpretation Comments CULTURE (BEAKER) (test No fungus isolated in code = 1095) 28 days FUNGUS SMEAR (BEAKER) No fungi seen (test code = 1406) FUNGUS CULTURE + [id number] 07:13:00 Test Item Value Reference Range Interpretation Comments CULTURE (BEAKER) (test No fungus isolated in code = 1095) 28 days FUNGUS SMEAR (BEAKER) No fungi seen (test code = 1406) TISSUE [id number] 19:17:00Surgical Pathology Report Case: [id number] Authorizing Provider: Juliana Martinez MD Collected: 05/23/2018824 Ordering Location: [facility] Received: 05/23/2018 09 SERVICES Pathologist: Brigida Parks MD Specimen: Soft Tissue, Other, LEFT GROIN - TISSUE BIOPSY SKIN AND SOFT TISSUE,GROIN,LEFT, BIOPSY: - ABSCESSES, GRANULOMAS AND CHRONIC INFLAMMATION - NEGATIVE FOR DYSPLASIA OR MALIGNANCY - AFB AND GMS STAINS ARE NEGATIVE (SEE COMMENT) Signing Pathologist Direct Phone Line: [phone] signed by Brigida Parks MD on 06/02/2018 at 7:17 PMCorrelation with culture studies is recommended.23539Mhcsyqowk abscess groinLeft groin tissue biopsyReceived fresh labeled "soft tissue, other", description "left groin tissue biopsy" are two dark-porter, wrinkled,hair- bearing strips of skin measuring 1.5 and 2.6 cm in length, 0.3 cm in diameter and excised to a depth of 0.3 cm.Sectioning reveals no discrete masses.The specimen is entirely submitted in cassettesA1. DB/ewPOCT-GLUCOSE [id number] 08:51:00 Test Item Value Reference Range Interpretation Comments POC-GLUCOSE METER 101 mg/dL 70-110 TESTED AT [facility] 6720 ([facility]) (test code = [place] 1538) [address] CBC W/PLT COUNT & AUTO [id number] 06:01:00 Test Item Value Reference Range Interpretation [...] PERCENT (BEAKER) (test code = 2801) PROTHROMBIN [id number] 05:51:00 Test Item Value Reference Range Interpretation Comments PROTIME (BEAKER) (test code = 25.9 seconds 11.7-14.7 H 759) INR (BEAKER) (test code = 370) 2.4 <=5.9 RECOMMENDED COUMADIN/WARFARIN INR THERAPY RANGESSTANDARD DOSE: 2.0 - 3.0 Includes: PROPHYLAXIS forvenous thrombosis, systemic embolization; TREATMENT for venous thrombosis and/or pulmonary embolus.HIGH RISK: Target INR is 2.5-3.5 for patients with mechanical heart valves.BASIC METABOLIC [id number] 05:46:00 Test Item Value Reference Range Interpretation [...] 358) GLUCOSE RANDOM 110 mg/dL 70-105 H ([facility]) (test code = 652) CALCIUM ([facility]) 9.0 mg/dL 8.4-10.2 (test code = 697) EGFR ([facility]) (test 14 mL/min/1.73 ESTIMA JAYLA GFR IS code = 1092) sq m NOT ACCURATE CREATININE CLEARANCE IN PREDICTING GLOMERULAR FILTRATION RATE . ESTIMATED GFR I S NOT APPLICABLE FOR DIALYSIS PATIEN TS. POCT-GLUCOSE [id number] 20:34:00 Test Item Value Reference Range Interpretation Comments POC-GLUCOSE METER 261 mg/dL 70-110 H TESTED AT [place] [address] ([facility]) (test code = [facility] 1538) [address] POCT-GLUCOSE [id number] 18:12:00 Test Item Value Reference Range Interpretation Comments POC-GLUCOSE METER 139 mg/dL 70-110 H TESTED AT [place] [address] ([facility]) (test code = [facility] 1538) [address] POCT-GLUCOSE [id number] 11:51:00 Test Item Value Reference Range Interpretation Comments POC-GLUCOSE METER 147 mg/dL 70-110 H TESTED AT [place] [address] ([facility]) (test code = [facility] 1538) [address] POCT-GLUCOSE [id number] 08:42:00 Test Item Value Reference Range Interpretation Comments POC-GLUCOSE METER 104 mg/dL 70-110 TESTED AT [place] [address] ([facility]) (test code = [facility] 1538) [address] CBC W/PLT COUNT & AUTO [id number] 06:56:00 Test Item Value Reference Range Interpretation Comments WHITE BLOOD CELL COUNT ([facility]) 8.0 K/ L 3.5-10.5 (test code = 775) RED BLOOD CELL COUNT ([facility]) 3.40 M/ L 4.63-6.08 L (test code = 761) HEMOGLOBIN ([facility]) (test code = 10.2 GM/DL 13.7-17.5 L 410) HEMATOCRIT ([facility]) (test code = 32.0 % 40.1-51.0 L 411) MEAN CORPUSCULAR VOLUME ([facility]) 94.1 fL 79.0-92.2 H (test [...] (BEAKER) (test code = 2801) BASIC METABOLIC [id number] 06:49:00 Test Item Value Reference Range Interpretation [...] NOT APPLICABLE FOR DIALYSIS PATIEN TS. PROTHROMBIN [id number] 06:46:00 Test Item Value Reference Range Interpretation Comments PROTIME ([facility]) (test code = 26.9 seconds 11.7-14.7 H 759) INR (BEAKER) (test code = 370) 2.5 <=5.9 RECOMMENDED COUMADIN/WARFARIN INR THERAPY RANGESSTANDARD DOSE: 2.0 - 3.0 Includes: PROPHYLAXIS forvenous thrombosis, systemic embolization; TREATMENT for venous thrombosis and/or pulmonary embolus.HIGH RISK: Target INR is 2.5-3.5 for patients with mechanical heart valves.ANAEROBIC [id number] 00:38:00 Test Item Value Reference Range Interpretation Comments CULTURE ([facility]) (test No anaerobes isolated code = 1095) ANAEROBIC [id number] 00:38:00 Test Item Value Reference Range Interpretation Comments CULTURE ([facility]) (test No anaerobes isolated code = 1095) POCT-GLUCOSE [id number] 20:43:00 Test Item Value Reference Range Interpretation Comments POC-GLUCOSE METER 124 mg/dL 70-110 H TESTED AT [place] [address] ([facility]) [facility] 1538) [address] POCT-GLUCOSE [id number] 17:17:00 Test Item Value Reference Range Interpretation Comments POC-GLUCOSE METER 190 mg/dL 70-110 H TESTED AT [place] [address] ([facility]) (test code = [facility] Humberto [facility] 1538) [address] POCT-GLUCOSE [id number] 11:54:00 Test Item Value Reference Range Interpretation Comments POC-GLUCOSE METER 195 mg/dL 70-110 H TESTED AT [place] [address] ([facility]) (test code = [facility] Humberto [facility] 1538) [address] C. DIFFICILE GDH [id number] 11:16:00 Test Item Value Reference Range Interpretation Comments CDT TOXIN (test code Negative Negative = 4628232840) CDT GDH ANTIGEN (test Negative Negative No ind ication of code = 7786271964) Clostridi um difficile infection and n o colonization. Discontinue ent kenrick isolation and t herapy. Testing performed by [employer] Rapid Cassette Assay. For GDH, published sensitivity of the assay is 98.7% compared to cytotoxicity testing. For Toxin AB, published sensitivity is 87.8% and specificity 99.4% compared to cytotoxicity testing.Verification of kit performance was done by the [facility] Microbiology Lab prior to clinical use.SURGICALLY OBTAINED CULTURE + GRAM [id number] 09:22:00 Test Item Value Reference Interpretation Comments [...] No organisms seen (BEAKER) (test code = 882855) SURGICALLY OBTAINED CULTURE + GRAM [id number] 09:20:00 Test Item Value Reference Range Interpretation Comments CULTURE (BEAKER) (test code No growth = 1095) GRAM STAIN RESULT (BEAKER) 4+ WBCs (test code = 1123) GRAM STAIN RESULT (BEAKER) No organisms seen (test code = 99617) POCT-GLUCOSE [id number] 08:21:00 Test Item Value Reference Range Interpretation Comments POC-GLUCOSE METER 101 mg/dL 70-110 TESTED AT [facility] 6720 (BEAKER) (test code = [place] 1538) [address] BASIC METABOLIC [id number] 07:57:00 Test Item Value Reference Range Interpretation [...] NOT APPLICABLE FOR DIALYSIS PATIEN TS. PROTHROMBIN [id number] 06:36:00 Test Item Value Reference Range Interpretation [...] PERCENT (BEAKER) (test code = 2801) POCT-GLUCOSE [id number] 21:40:00 Test Item Value Reference Range Interpretation Comments POC-GLUCOSE METER 176 mg/dL 70-110 H [facility] (test code = [place] 1538) [address] POCT-GLUCOSE [id number] 16:07:00 Test Item Value Reference Range Interpretation Comments POC-GLUCOSE METER 120 mg/dL 70-110 H TESTED AT [facility] 67[facility] (test code = [place] 1538) [address] POCT-GLUCOSE [id number] 08:31:00 Test Item Value Reference Range Interpretation Comments POC-GLUCOSE METER 119 mg/dL 70-110 H TESTED AT [facility] 6720 (BEAKER) (test code = [place] 1538) [address] BASIC METABOLIC [id number] 08:19:00 Test Item Value Reference Range Interpretation [...] APPLICABLE FOR DIALYSIS PATIEN TS. VANCOMYCIN LEVEL, [id number] 08:16:00 Test Item Value Reference Range Interpretation Comments VANCOMYCIN RANDOM (BEAKER) (test 17.6 ug/mL code = 523) Reference Range: No NormalsPROTHROMBIN [id number] 07:21:00 Test Item Value Reference Range Interpretation [...] PERCENT (BEAKER) (test code = 2801) BLOOD [id number] 06:00:00 Test Item Value Reference Range Interpretation Comments CULTURE (BEAKER) (test No growth in 5 days code = 1095) BLOOD [id number] 00:00:00 Test Item Value Reference Range Interpretation Comments CULTURE (BEAKER) (test No growth in 5 days code = 1095) POCT-GLUCOSE [id number] 22:05:00 Test Item Value Reference Range Interpretation Comments POC-GLUCOSE METER 169 mg/dL 70-110 H TESTED AT [place] [address] (BEAKER) (test code = [facility] 1538) [address] POCT-GLUCOSE [id number] 18:20:00 Test Item Value Reference Range Interpretation Comments POC-GLUCOSE METER 110 mg/dL 70-110 TESTED AT [place] [address] (BEAKER) (test code = [facility] 1538) [address] POCT-GLUCOSE [id number] 17:17:00 Test Item Value Reference Range Interpretation Comments POC-GLUCOSE METER 99 mg/dL 70-110 TESTED AT [place] [address] (BEAKER) (test code = [facility] [address] 1538) SPIN/CONCENTRATION [id number] 14:49:00 Test Item Value Reference Range Interpretation Comments CONCENTRATION CHARGED (BEAKER) (test Done code = 2657) SPIN/CONCENTRATION [id number] 14:49:00 Test Item Value Reference Range Interpretation Comments CONCENTRATION CHARGED (BEAKER) (test Done code = 2657) POCT-GLUCOSE [id number] 12:13:00 Test Item Value Reference Range Interpretation Comments POC-GLUCOSE METER 188 mg/dL 70-110 H TESTED AT [place] [address] (BEAKER) (test code = [facility] 1538) [address] BASIC METABOLIC [id number] 09:56:00 Test Item Value Reference Range Interpretation [...] NOT APPLICABLE FOR DIALYSIS PATIEN TS. POCT-GLUCOSE [id number] 07:45:00 Test Item Value Reference Range Interpretation Comments POC-GLUCOSE METER 108 mg/dL 70-110 TESTED AT [facility] 6720 ([facility]) (test code = [place] 1538) [address] CBC W/PLT COUNT & AUTO [id number] 07:00:00 Test Item Value Reference Range Interpretation [...] PERCENT (BEAKER) (test code = 2801) PROTHROMBIN [id number] 06:47:00 Test Item Value Reference Range Interpretation Comments PROTIME (BEAKER) (test code = 20.7 seconds 11.7-14.7 H 759) INR (BEAKER) (test code = 370) 1.8 <=5.9 RECOMMENDED COUMADIN/WARFARIN INR THERAPY RANGESSTANDARD DOSE: 2.0 - 3.0 Includes: PROPHYLAXIS forvenous thrombosis, systemic embolization; TREATMENT for venous thrombosis and/or pulmonary embolus.HIGH RISK: Target INR is 2.5-3.5 for patients with mechanical heart valves.POCT-GLUCOSE [id number] 20:42:00 Test Item Value Reference Range Interpretation Comments POC-GLUCOSE METER 134 mg/dL 70-110 H TESTED AT [facility]20 ([facility]) (test code = [facility] 1538) [address] POCT-GLUCOSE [id number] 13:29:00 Test Item Value Reference Range Interpretation Comments POC-GLUCOSE METER 209 mg/dL 70-110 H TESTED AT [facility] 67[facility] ([facility]) (test code = [facility] 1538) [address] POCT-GLUCOSE [id number] 08:53:00 Test Item Value Reference Range Interpretation Comments POC-GLUCOSE METER 103 mg/dL 70-110 TESTED AT [facility] 6720 (BEAKER) (test code = [place] 1538) [address] BASIC METABOLIC [id number] 07:47:00 Test Item Value Reference Range Interpretation [...] DIALYSIS PATIEN TS. WOUND CULTURE + GRAM [id number] 07:44:00 Test Item Value Reference Range Interpretation Comments CULTURE (BEAKER) (test code No growth = 1095) GRAM STAIN RESULT (BEAKER) No WBCs (test code = 1123) GRAM STAIN RESULT (BEAKER) No organisms seen (test code = 16332) [id number] 07:38:00 Test Item Value Reference Range Interpretation Comments PHOSPHORUS (BEAKER) (test code = 3.2 mg/dL 2.3-4.7 604) CBC W/PLT COUNT & AUTO [id number] 06:35:00 Test Item Value Reference Range Interpretation [...] PERCENT (BEAKER) (test code = 2801) PROTHROMBIN [id number] 06:32:00 Test Item Value Reference Range Interpretation Comments PROTIME (BEAKER) (test code = 23.2 seconds 11.7-14.7 H 759) INR (BEAKER) (test code = 370) 2.1 <=5.9 RECOMMENDED COUMADIN/WARFARIN INR THERAPY RANGESSTANDARD DOSE: 2.0 - 3.0 Includes: PROPHYLAXIS forvenous thrombosis, systemic embolization; TREATMENT for venous thrombosis and/or pulmonary embolus.HIGH RISK: Target INR is 2.5-3.5 for patients with mechanical heart valves.POCT-GLUCOSE [id number] 21:21:00 Test Item Value Reference Range Interpretation Comments POC-GLUCOSE METER 177 mg/dL 70-110 H TESTED AT [place] [address] ([facility]) (test code = [facility] 1538) [address] POCT-GLUCOSE [id number] 17:53:00 Test Item Value Reference Range Interpretation Comments POC-GLUCOSE METER 89 mg/dL 70-110 TESTED AT [place] [address] ([facility]) (test code = [facility] [address] 1538) IRON, TIBC, % SAT. (WITHOUT FERRITIN)2018-05-22 17:45:00 Test Item Value Reference Range Interpretation Comments IRON (BEAKER) (test code = 547) 63 ug/dL 40-160 TOTAL IRON BINDING CAPACITY 203 ug/dL 250-450 L ([facility]) (test code = 769) IRON % SATURATION (2) (BEAKER) 31 % 20-55 (test code = 2590) [id number] 16:07:00 Test Item Value Reference Range Interpretation Comments PHOSPHORUS (BEAKER) (test code = 5.4 mg/dL 2.3-4.7 H 604) POCT-GLUCOSE [id number] 12:41:00 Test Item Value Reference Range Interpretation Comments POC-GLUCOSE METER 110 mg/dL 70-110 TESTED AT [place] [address] ([facility]) (test code = [facility] 1538) [address] POCT-GLUCOSE [id number] 07:00:00 Test Item Value Reference Range Interpretation Comments POC-GLUCOSE METER 159 mg/dL 70-110 H TESTED AT [place] [address] ([facility]) (test code = [facility] 1538) [address] BASIC METABOLIC [id number] 05:19:00 Test Item Value Reference Range Interpretation [...] S NOT APPLICABLE FOR DIALYSIS PATIEN TS. [id number] 05:18:00 Test Item Value Reference Range Interpretation Comments MAGNESIUM (BEAKER) (test code = 1.9 mg/dL 1.6-2.6 627) PROTHROMBIN [id number] 05:03:00 Test Item Value Reference Range Interpretation [...] 0-1 H PERCENT (BEAKER) (test code = 2804) POCT-GLUCOSE [id number] 23:35:00 Test Item Value Reference Range Interpretation Comments POC-GLUCOSE METER 190 mg/dL 70-110 H TESTED AT [facility] 6720 (BEAKER) (test code = [place] 1538) [address] POCT-GLUCOSE [id number] 17:16:00 Test Item Value Reference Range Interpretation Comments POC-GLUCOSE METER 122 mg/dL 70-110 H TESTED AT [facility] 67 ([facility]) (test code = [place] 1538) [address] U/S, TESTICULAR (SCROTUM)2018-05-21 14:53:00Reason for exam:->testicular swellingFINAL [...] MDReport Verified Date/Time: 05/21/2018 14:53:00 Reading Location: [address] UltrasoundReading Room POCT- GLUCOSE [id number] 11:22:00 Test Item Value Reference Range Interpretation Comments POC-GLUCOSE METER 144 mg/dL 70-110 H TESTED AT [facility] 6720 ([facility]) (test code = [place] [facility] 1538) [address] POCT-GLUCOSE [id number] 07:05:00 Test Item Value Reference Range Interpretation Comments POC-GLUCOSE METER 171 mg/dL 70-110 H TESTED AT [facility] 6720 (BEAKER) (test code = [place] 1538) [address] BASIC METABOLIC [id number] 06:19:00 Test Item Value Reference Range Interpretation [...] S NOT APPLICABLE FOR DIALYSIS PATIEN TS. [id number] 06:04:00 Test Item Value Reference Range Interpretation Comments MAGNESIUM (BEAKER) (test code = 1.9 mg/dL 1.6-2.6 627) PROTHROMBIN [id number] 05:31:00 Test Item Value Reference Range Interpretation [...] [facility]) (test code = 2801) POCT-GLUCOSE [id number] 21:29:00 Test Item Value Reference Range Interpretation Comments POC-GLUCOSE METER 156 mg/dL 70-110 H TESTED AT [place] [address] ([facility]) (test code = [place] [facility] 1538) [address] POCT-GLUCOSE [id number] 18:14:00 Test Item Value Reference Range Interpretation Comments POC-GLUCOSE METER 93 mg/dL 70-110 TESTED AT [place] [address] ([facility]) (test code = [place] [facility] [address] 1538) PROTHROMBIN TIME/[id number] 13:26:00 Test Item Value Reference Range Interpretation [...] Range ChangeNew: 0.5-2.2 mmol/L Previous: 5-20 mg/dLPOCT-GLUCOSE [id number] 12:04:00 Test Item Value Reference Range Interpretation Comments POC-GLUCOSE METER 111 mg/dL 70-110 H TESTED AT [place] [address] ([facility]) (test code = [facility] Humberto [facility] 1538) [address] CD4 T CELL [id number] 12:04:00 Test Item Value Reference Range Interpretation Comments CD4/CD8 RATIO FC ([facility]) (test code = 0.76 0.70-3.23 5) HEPATITIS B SURFACE [id number] 11:32:00 Test Item Value Reference Range Interpretation Comments HEPATITIS B SURFACE ANTIGEN (2) Nonreactive Nonreactive (BEAKER) (test code = 2585) VANCOMYCIN LEVEL, [id number] 11:10:00 Test Item Value Reference Range Interpretation Comments VANCOMYCIN RANDOM (BEAKER) (test 20.7 ug/mL code = 523) Reference Range: No NormalsBASIC METABOLIC [id number] 09:19:00 Test Item Value Reference Range Interpretation [...] S NOT APPLICABLE FOR DIALYSIS PATIEN TS. [id number] 09:16:00 Test Item Value Reference Range Interpretation Comments MAGNESIUM (BEAKER) (test code = 2.1 mg/dL 1.6-2.6 627) RAD, CHEST, 1 VIEW, NON [id number] 07:56:00Reason for exam:->pleural effusion seen on outside hospital imagingShould this be performed at the bedside?->YesFINAL REPORT Chest one view compared to February 23 Discussion: Small effusions are similar. Replaced cardiac valve and atrial appendage clip noted. No pneumothorax. Unchanged cardiac pulmonary appearance. Signed: Rhea Colindreseport Verified Date/Time: 05/20/2018 07:56:50 Reading Location: [facility] Radiology Reading Room POCT-GLUCOSE [id number] 07:32:00 Test Item Value Reference Range Interpretation Comments POC-GLUCOSE METER 105 mg/dL 70-110 TESTED AT [facility] 6720 (BEAKER) (test code = [place] 1538) [address] CBC W/PLT COUNT & AUTO [id number] 07:01:00 Test Item Value Reference Range Interpretation [...] (BEAKER) (test code = 2801) VANCOMYCIN LEVEL, [id number] 22:39:00 Test Item Value Reference Range Interpretation Comments VANCOMYCIN RANDOM (BEAKER) (test 22.0 ug/mL code = 523) Reference Range: No NormalsCOMPREHENSIVE METABOLIC [id number] 22:39:00 Test Item Value Reference Range Interpretation [...] S NOT APPLICABLE FOR DIALYSIS PATIEN TS. [id number] 22:38:00 Test Item Value Reference Range Interpretation Comments PHOSPHORUS (BEAKER) (test code = 4.5 mg/dL 2.3-4.7 604) [id number] 22:38:00 Test Item Value Reference Range Interpretation Comments MAGNESIUM (BEAKER) (test code = 2.0 mg/dL 1.6-2.6 627) [id number] 22:29:00 Test Item Value Reference Range Interpretation Comments PARTIAL THROMBOPLASTIN TIME 45.0 seconds 22.5-36.0 H (BEAKER) (test code = 760) PROTHROMBIN [id number] 22:28:00 Test Item Value Reference Range Interpretation Comments PROTIME (BEAKER) (test code = 48.1 seconds 11.7-14.7 H 759) INR (BEAKER) (test code = 370) 5.2 <=5.9 RECOMMENDED COUMADIN/WARFARIN INR THERAPY RANGESSTANDARD DOSE: 2.0 - 3.0 Includes: PROPHYLAXIS forvenous thrombosis, systemic embolization; TREATMENT for venous thrombosis and/or pulmonary embolus.HIGH RISK: Target INR is 2.5-3.5 for patients with mechanical heart valves.POCT-GLUCOSE [id number] 21:38:00 Test Item Value Reference Range Interpretation Comments POC-GLUCOSE METER 105 mg/dL 70-110 TESTED AT [facility] (test code = [place] 1538) [address] XR Ankle Complete 3+ Views [id number] 22:30:07Patient: CALEB LUGO Date/Time05/12/2018 22:24 CDTReason for [...] FSigned (Electronic Signature): 05/12/2018 9:48 amBASIC METABOLIC [id number] 11:15:00 Test Item Value Reference Range Interpretation [...] (BEAKER) (test code = 700) BASIC METABOLIC [id number] 02:55:00 Test Item Value Reference Range Interpretation [...] H (BEAKER) (test code = 700) TROPONIN [id number] 02:30:00 Test Item Value Reference Range Interpretation [...] failure, acidosis, acute neurological disease, and persistent tachyarrhythmia.[id number] 02:21:00 Test Item Value Reference Range Interpretation Comments MAGNESIUM (BEAKER) (test code = 1.8 mg/dL 1.6-2.6 627) CBC W/PLT COUNT & AUTO [id number] 00:24:00 Test Item Value Reference Range Interpretation [...] 0-1 PERCENT (BEAKER) (test code = 2801) [id number] 00:01:00 Test Item Value Reference Range Interpretation [...] mechanical heart valves.RAD, CHEST, 1 VIEW, NON [id number] 23:39:00Reason for exam:->chest painShould this be performed [...] MDReport Verified Date/Time: 02/23/2018 23:39:58 Reading Location: [address] Reading Room POCT-GLUCOSE [id number] 19:47:00 Test Item Value Reference Range Interpretation Comments POC-GLUCOSE METER 94 mg/dL 70-110 TESTED AT [facility] 6720 ([facility]) (test code = [place] [facility] [address] 1538) POCT-GLUCOSE [id number] 17:07:00 Test Item Value Reference Range Interpretation Comments POC-GLUCOSE METER 176 mg/dL 70-110 H TESTED AT [place] [address] ([facility]) (test code = [place] [facility] 1538) [address] POCT-GLUCOSE [id number] 12:31:00 Test Item Value Reference Range Interpretation Comments POC-GLUCOSE METER 84 mg/dL 70-110 TESTED AT [place] [address] ([facility]) (test code = [place] [facility] [address] 1538) [id number] 10:40:00 Test Item Value Reference Range Interpretation Comments PARTIAL THROMBOPLASTIN TIME 88.5 seconds 22.5-36.0 H ([facility]) (test code = 760) OCCULT BLOOD, [id number] 09:36:00 Test Item Value Reference Range Interpretation Comments FECAL OCCULT BLOOD ([facility]) (test Negative Negative code = 618) POCT-GLUCOSE [id number] 08:51:00 Test Item Value Reference Range Interpretation Comments POC-GLUCOSE METER 223 mg/dL 70-110 H TESTED AT [place] [address] ([facility]) (test code = [facility] H[place]to [facility] 1538) [address] [id number] 04:14:00 Test Item Value Reference Range Interpretation Comments PARTIAL THROMBOPLASTIN TIME 80.3 seconds 22.5-36.0 H ([facility]) (test code = 760) While on warfarin.PROTHROMBIN TIME/[id number] 04:13:00 Test Item Value Reference Range Interpretation [...] METER 206 mg/dL 70-110 H TESTED AT [place] [address] ([facility]) (test code = [place] 1538) [address] [id number] 19:50:00 Test Item Value Reference Range Interpretation Comments PARTIAL THROMBOPLASTIN TIME 59.7 seconds 22.5-36.0 H (BEAKER) (test code = 760) POCT-GLUCOSE [id number] 17:00:00 Test Item Value Reference Range Interpretation Comments POC-GLUCOSE METER 183 mg/dL 70-110 H TESTED AT [facility] 6720 ([facility]) (test code = [place] 1538) [address] [id number] 12:45:00 Test Item Value Reference Range Interpretation Comments PARTIAL THROMBOPLASTIN TIME 89.5 seconds 22.5-36.0 H (BEAKER) (test code = 760) CBC W/PLT COUNT & AUTO [id number] 12:04:00 Test Item Value Reference Range Interpretation [...] WBC 0-0 (test code = 413) POCT-GLUCOSE [id number] 11:54:00 Test Item Value Reference Range Interpretation Comments POC-GLUCOSE METER 124 mg/dL 70-110 H TESTED AT [facility] 6720 (BEAKER) (test code = [place] 1538) [address] POCT-GLUCOSE [id number] 07:48:00 Test Item Value Reference Range Interpretation Comments POC-GLUCOSE METER 178 mg/dL 70-110 H TESTED AT [facility] 6720 (BEAKER) (test code = [place] 1538) [address] BASIC METABOLIC [id number] 05:15:00 Test Item Value Reference Range Interpretation [...] S NOT APPLICABLE FOR DIALYSIS PATIEN TS. [id number] 04:51:00 Test Item Value Reference Range Interpretation Comments MAGNESIUM (BEAKER) (test code = 1.8 mg/dL 1.6-2.6 627) [id number] 04:36:00 Test Item Value Reference Range Interpretation Comments PARTIAL THROMBOPLASTIN TIME 91.9 seconds 22.5-36.0 H (BEAKER) (test code = 760) While on warfarin.PROTHROMBIN TIME/[id number] 04:34:00 Test Item Value Reference Range Interpretation [...] METER 126 mg/dL 70-110 H TESTED AT [place] [address] ([facility]) (test code = [place] [facility] 1538) [address] [id number] 21:23:00 Test Item Value Reference Range Interpretation Comments PARTIAL THROMBOPLASTIN TIME 84.1 seconds 22.5-36.0 H ([facility]) (test code = 760) POCT-GLUCOSE [id number] 16:57:00 Test Item Value Reference Range Interpretation Comments POC-GLUCOSE METER 156 mg/dL 70-110 H TESTED AT [place] [address] ([facility]) (test code = [place] 1538) [address] [id number] 14:11:00 Test Item Value Reference Range Interpretation Comments PARTIAL THROMBOPLASTIN TIME 96.5 seconds 22.5-36.0 H ([facility]) (test code = 760) POCT-GLUCOSE [id number] 08:24:00 Test Item Value Reference Range Interpretation Comments POC-GLUCOSE METER 169 mg/dL 70-110 H TESTED AT [place] [address] ([facility]) (test code = [place] 1538) [address] POCT-GLUCOSE [id number] 06:49:00 Test Item Value Reference Range Interpretation Comments POC-GLUCOSE METER 172 mg/dL 70-110 H TESTED AT [place] [address] ([facility]) (test code = [place] 1538) [address] [id number] 04:59:00 Test Item Value Reference Range Interpretation Comments PARTIAL THROMBOPLASTIN TIME 64.7 seconds 22.5-36.0 H ([facility]) (test code = 760) While on warfarin.PROTHROMBIN TIME/[id number] 04:57:00 Test Item Value Reference Range Interpretation [...] for patients with mechanical heart valves.While on warfarin.[id number] 21:55:00 Test Item Value Reference Range Interpretation Comments PARTIAL THROMBOPLASTIN TIME 68.8 seconds 22.5-36.0 H ([facility]) (test code = 760) [id number] 13:54:00 Test Item Value Reference Range Interpretation Comments PARTIAL THROMBOPLASTIN TIME 51.7 seconds 22.5-36.0 H ([facility]) (test code = 760) POCT-GLUCOSE [id number] 11:56:00 Test Item Value Reference Range Interpretation Comments POC-GLUCOSE METER 101 mg/dL 70-110 TESTED AT [place] [address] ([facility]) (test code = [facility] 1538) [address] POCT-GLUCOSE [id number] 07:58:00 Test Item Value Reference Range Interpretation Comments POC-GLUCOSE METER 111 mg/dL 70-110 H TESTED AT [place] [address] ([facility]) (test code = [facility] 1538) [address] BASIC METABOLIC [id number] 05:35:00 Test Item Value Reference Range Interpretation [...] S NOT APPLICABLE FOR DIALYSIS PATIEN TS. [id number] 05:34:00 Test Item Value Reference Range Interpretation Comments PHOSPHORUS (BEAKER) (test code = 4.2 mg/dL 2.3-4.7 604) [id number] 05:34:00 Test Item Value Reference Range Interpretation Comments MAGNESIUM (BEAKER) (test code = 1.7 mg/dL 1.6-2.6 627) PROTHROMBIN [id number] 05:24:00 Test Item Value Reference Range Interpretation Comments PROTIME (BEAKER) (test code = 18.8 seconds 11.7-14.7 H 759) INR (BEAKER) (test code = 370) 1.6 <=5.9 RECOMMENDED COUMADIN/WARFARIN INR THERAPY RANGESSTANDARD DOSE: 2.0 - 3.0 Includes: PROPHYLAXIS forvenous thrombosis, systemic embolization; TREATMENT for venous thrombosis and/or pulmonary embolus.HIGH RISK: Target INR is 2.5-3.5 for patients with mechanical heart valves.[id number] 05:05:00 Test Item Value Reference Range Interpretation Comments PARTIAL THROMBOPLASTIN TIME 96.6 seconds 22.5-36.0 H (BEAKER) (test code = 760) CBC W/PLT COUNT & AUTO [id number] 04:54:00 Test Item Value Reference Range Interpretation [...] (BEAKER) (test code = 2801) OCCULT BLOOD, [id number] 22:44:00 Test Item Value Reference Range Interpretation Comments FECAL OCCULT BLOOD (BEAKER) (test Positive Negative A code = 618) [id number] 21:14:00 Test Item Value Reference Range Interpretation Comments PARTIAL THROMBOPLASTIN TIME 69.1 seconds 22.5-36.0 H (BEAKER) (test code = 760) POCT-GLUCOSE [id number] 20:49:00 Test Item Value Reference Range Interpretation Comments POC-GLUCOSE METER 160 mg/dL 70-110 H TESTED AT [facility] 6720 (BEAKER) (test code = [place] 1538) [address] POCT-GLUCOSE [id number] 17:59:00 Test Item Value Reference Range Interpretation Comments POC-GLUCOSE METER 128 mg/dL 70-110 H TESTED AT [facility] 67 ([facility]) ([facility] 1538) [address] POCT-GLUCOSE [id number] 13:31:00 Test Item Value Reference Range Interpretation Comments POC-GLUCOSE METER 70 mg/dL 70-110 TESTED AT [place] [address] ([facility]) (test code = [facility] Humberto [facility] [address] 1538) [id number] 13:16:00 Test Item Value Reference Range Interpretation Comments PARTIAL THROMBOPLASTIN TIME 78.3 seconds 22.5-36.0 H (BEAKER) (test code = 760) POCT-GLUCOSE [id number] 12:47:00 Test Item Value Reference Range Interpretation Comments POC-GLUCOSE METER 49 mg/dL 70-110 L TESTED AT [place] [address] ([facility]) (test code = [facility] [address] 1538) POCT-GLUCOSE [id number] 09:05:00 Test Item Value Reference Range Interpretation Comments POC-GLUCOSE METER 306 mg/dL 70-110 H TESTED AT [place] [address] ([facility]) (test code = [facility] 1538) [address] OCCULT BLOOD, [id number] 06:52:00 Test Item Value Reference Range Interpretation Comments FECAL OCCULT BLOOD (BEAKER) (test Positive Negative A code = 618) [id number] 05:42:00 Test Item Value Reference Range Interpretation [...] 20-55 (test code = 2590) BASIC METABOLIC [id number] 03:53:00 Test Item Value Reference Range Interpretation [...] S NOT APPLICABLE FOR DIALYSIS PATIEN TS. [id number] 03:51:00 Test Item Value Reference Range Interpretation Comments PHOSPHORUS (BEAKER) (test code = 3.2 mg/dL 2.3-4.7 604) [id number] 03:51:00 Test Item Value Reference Range Interpretation Comments PARTIAL THROMBOPLASTIN TIME 122.0 seconds 22.5-36.0 H (BEAKER) (test code = 760) While on warfarin.PROTHROMBIN [id number] 03:48:00 Test Item Value Reference Range Interpretation Comments PROTIME (BEAKER) (test code = 16.3 seconds 11.7-14.7 H 759) INR (BEAKER) (test code = 370) 1.3 <=5.9 RECOMMENDED COUMADIN/WARFARIN INR THERAPY RANGESSTANDARD DOSE: 2.0 - 3.0 Includes: PROPHYLAXIS forvenous thrombosis, systemic embolization; TREATMENT for venous thrombosis and/or pulmonary embolus.HIGH RISK: Target INR is 2.5-3.5 for patients with mechanical heart valves.While on warfarin.[id number] 03:44:00 Test Item Value Reference Range Interpretation Comments MAGNESIUM (BEAKER) (test code = 1.7 mg/dL 1.6-2.6 627) CBC W/PLT COUNT & AUTO [id number] 03:38:00 Test Item Value Reference Range Interpretation [...] [facility]) (test code = 2801) POCT-GLUCOSE [id number] 23:35:00 Test Item Value Reference Range Interpretation Comments POC-GLUCOSE METER 149 mg/dL 70-110 H TESTED AT [place] [address] ([facility]) (test code = [place] 1538) [address] [id number] 20:08:00 Test Item Value Reference Range Interpretation Comments PARTIAL THROMBOPLASTIN TIME 55.6 seconds 22.5-36.0 H ([facility]) (test code = 760) [id number] 15:10:00 Test Item Value Reference Range Interpretation Comments PARTIAL THROMBOPLASTIN TIME 81.4 seconds 22.5-36.0 H ([facility]) (test code = 760) POCT-GLUCOSE [id number] 11:58:00 Test Item Value Reference Range Interpretation Comments POC-GLUCOSE METER 124 mg/dL 70-110 H TESTED AT [place] [address] ([facility]) (test code = [place] [facility] 1538) [address] RAD, CHEST, 1 VIEW, NON [id number] 08:59:00Reason for exam:->s/p mvrShould this be performed at the bedside?->YesFINAL REPORT Chest one view compared to January 24 Discussion: Left IJ line, atrial appendage clip, cardiac valve replacement noted. Mild interstitial congestion. No gross effusion or pneumothorax. IMPRESSIONS: No significant change Signed: Rhea Colindres Verified Date/Time:01/29/2018 08:59:39 Reading Location: [facility] Radiology Reading Room POCT-GLUCOSE [id number] 07:41:00 Test Item Value Reference Range Interpretation Comments POC-GLUCOSE METER 113 mg/dL 70-110 H TESTED AT [place] [address] ([facility]) (test code = [place] [facility] 1538) [address] [id number] 07:23:00 Test Item Value Reference Range Interpretation Comments PARTIAL THROMBOPLASTIN TIME 89.8 seconds 22.5-36.0 H ([facility]) (test code = 760) BASIC METABOLIC [id number] 06:05:00 Test Item Value Reference Range Interpretation [...] NOT APPLICABLE FOR DIALYSIS PATIEN TS. PROTHROMBIN [id number] 05:59:00 Test Item Value Reference Range Interpretation Comments PROTIME (BEAKER) (test code = 17.0 seconds 11.7-14.7 H 759) INR (BEAKER) (test code = 370) 1.4 <=5.9 RECOMMENDED COUMADIN/WARFARIN INR THERAPY RANGESSTANDARD DOSE: 2.0 - 3.0 Includes: PROPHYLAXIS forvenous thrombosis, systemic embolization; TREATMENT for venous thrombosis and/or pulmonary embolus.HIGH RISK: Target INR is 2.5-3.5 for patients with mechanical heart valves.While on warfarin.[id number] 05:56:00 Test Item Value Reference Range Interpretation Comments PHOSPHORUS (BEAKER) (test code = 5.3 mg/dL 2.3-4.7 H 604) [id number] 05:56:00 Test Item Value Reference Range Interpretation Comments MAGNESIUM (BEAKER) (test code = 1.9 mg/dL 1.6-2.6 627) CBC W/PLT COUNT & AUTO [id number] 05:38:00 Test Item Value Reference Range Interpretation [...] 0-1 PERCENT (BEAKER) (test code = 2801) [id number] 01:07:00 Test Item Value Reference Range Interpretation Comments PARTIAL THROMBOPLASTIN TIME 63.5 seconds 22.5-36.0 H (BEAKER) (test code = 760) [id number] 18:24:00 Test Item Value Reference Range Interpretation Comments PARTIAL THROMBOPLASTIN TIME 56.6 seconds 22.5-36.0 H (BEAKER) (test code = 760) POCT-GLUCOSE [id number] 18:14:00 Test Item Value Reference Range Interpretation Comments POC-GLUCOSE METER 101 mg/dL 70-110 TESTED AT [facility] 67 (BEAKER) (test code = MARIA GOSMAN [place] 1538) [address] [id number] 13:57:00 Test Item Value Reference Range Interpretation Comments PARTIAL THROMBOPLASTIN TIME 122.3 seconds 22.5-36.0 H (BEAKER) (test code = 760) POCT-GLUCOSE [id number] 13:08:00 Test Item Value Reference Range Interpretation Comments POC-GLUCOSE METER 105 mg/dL 70-110 TESTED AT [facility] 6720 (BEAKER) (test code = FOSTER Paul [facility] 1538) [address] BASIC METABOLIC [id number] 04:31:00 Test Item Value Reference Range Interpretation [...] S NOT APPLICABLE FOR DIALYSIS PATIEN TS. [id number] 04:28:00 Test Item Value Reference Range Interpretation Comments PHOSPHORUS (BEAKER) (test code = 3.9 mg/dL 2.3-4.7 604) [id number] 04:28:00 Test Item Value Reference Range Interpretation Comments MAGNESIUM (BEAKER) (test code = 1.7 mg/dL 1.6-2.6 627) HEPATIC FUNCTION [id number] 04:28:00 Test Item Value Reference Range Interpretation [...] (test code = 33 U/L 6-55 347) [id number] 04:20:00 Test Item Value Reference Range Interpretation Comments PARTIAL THROMBOPLASTIN TIME 106.2 seconds 22.5-36.0 H (BEAKER) (test code = 760) While on warfarin.PROTHROMBIN [id number] 04:15:00 Test Item Value Reference Range Interpretation [...] valves.While on warfarin.CBC W/PLT COUNT & AUTO [id number] 04:05:00 Test Item Value Reference Range Interpretation [...] [facility]) (test code = 2801) POCT-GLUCOSE [id number] 00:29:00 Test Item Value Reference Range Interpretation Comments POC-GLUCOSE METER 119 mg/dL 70-110 H TESTED AT [place] [address] ([facility]) (test code = [place]OST[place] 1538) [address] [id number] 00:24:00 Test Item Value Reference Range Interpretation Comments PARTIAL THROMBOPLASTIN TIME 72.4 seconds 22.5-36.0 H ([facility]) (test code = 760) POCT-GLUCOSE [id number] 18:33:00 Test Item Value Reference Range Interpretation Comments POC-GLUCOSE METER 158 mg/dL 70-110 H TESTED AT [place] [address] ([facility]) (test code = FOSTER Paul [place] 1538) [address] [id number] 18:22:00 Test Item Value Reference Range Interpretation Comments PARTIAL THROMBOPLASTIN TIME 78.6 seconds 22.5-36.0 H ([facility]) (test code = 760) POCT-GLUCOSE [id number] 12:20:00 Test Item Value Reference Range Interpretation Comments POC-GLUCOSE METER 110 mg/dL 70-110 TESTED AT [place] [address] ([facility]) (test code = FOSTER Paul [place] 1538) [address] [id number] 12:04:00 Test Item Value Reference Range Interpretation Comments PARTIAL THROMBOPLASTIN TIME 98.0 seconds 22.5-36.0 H ([facility]) (test code = 760) [id number] 04:11:00 Test Item Value Reference Range Interpretation [...] heart valves.While on warfarin.While on warfarin. PROTHROMBIN TIME/[id number] 04:10:00 Test Item Value Reference Range Interpretation Comments PROTIME (BEAKER) (test code = 15.2 seconds 11.7-14.7 H 759) INR (BEAKER) (test code = 370) 1.2 <=5.9 RECOMMENDED COUMADIN/WARFARIN INR THERAPY RANGESSTANDARD DOSE: 2.0 - 3.0 Includes: PROPHYLAXIS forvenous thrombosis, systemic embolization; TREATMENT for venous thrombosis and/or pulmonary embolus.HIGH RISK: Target INR is 2.5-3.5 for patients with mechanical heart valves.BASIC METABOLIC [id number] 03:53:00 Test Item Value Reference Range Interpretation [...] PATIEN TS. CBC W/PLT COUNT & AUTO [id number] 03:50:00 Test Item Value Reference Range Interpretation [...] H PERCENT (BEAKER) (test code = 280) [id number] 03:45:00 Test Item Value Reference Range Interpretation Comments PHOSPHORUS (BEAKER) (test code = 4.7 mg/dL 2.3-4.7 604) [id number] 03:45:00 Test Item Value Reference Range Interpretation Comments MAGNESIUM (BEAKER) (test code = 2.0 mg/dL 1.6-2.6 627) HEPATIC FUNCTION [id number] 03:45:00 Test Item Value Reference Range Interpretation [...] (test code = 36 U/L 6-55 347) [id number] 22:16:00 Test Item Value Reference Range Interpretation Comments PARTIAL THROMBOPLASTIN TIME 60.7 seconds 22.5-36.0 H (BEAKER) (test code = 760) POCT-GLUCOSE [id number] 18:32:00 Test Item Value Reference Range Interpretation Comments POC-GLUCOSE METER 125 mg/dL 70-110 H TESTED AT [facility] 6720 (BEAKER) (test code = FOSTER Paul [place] 1538) [address] CBC (HEMOGRAM ONLY)2018-01-26 17:21:00 Test Item Value [...] (BEAKER) (test code = 413) BASIC METABOLIC [id number] 07:16:00 Test Item Value Reference Range Interpretation [...] S NOT APPLICABLE FOR DIALYSIS PATIEN TS. [id number] 07:13:00 Test Item Value Reference Range Interpretation Comments PHOSPHORUS (BEAKER) (test code = 4.3 mg/dL 2.3-4.7 604) [id number] 07:13:00 Test Item Value Reference Range Interpretation Comments MAGNESIUM (BEAKER) (test code = 2.0 mg/dL 1.6-2.6 627) HEPATIC FUNCTION [id number] 07:13:00 Test Item Value Reference Range Interpretation [...] (test code = 37 U/L 6-55 347) [id number] 07:12:00 Test Item Value Reference Range Interpretation [...] PERCENT (BEAKER) (test code = 2801) BLOOD [id number] 00:00:00 Test Item Value Reference Range Interpretation Comments CULTURE (BEAKER) (test No growth in 5 days code = 1095) BLOOD [id number] 00:00:00 Test Item Value Reference Range Interpretation Comments CULTURE (BEAKER) (test No growth in 5 days code = 1095) POCT-GLUCOSE [id number] 23:37:00 Test Item Value Reference Range Interpretation Comments POC-GLUCOSE METER 87 mg/dL 70-110 TESTED AT [facility] 6720 (BEAKER) (test code = [place] [address] 1538) [id number] 23:06:00 Test Item Value Reference Range Interpretation Comments PARTIAL THROMBOPLASTIN TIME 81.8 seconds 22.5-36.0 H (BEAKER) (test code = 760) POCT-GLUCOSE [id number] 20:42:00 Test Item Value Reference Range Interpretation Comments POC-GLUCOSE METER 193 mg/dL 70-110 H TESTED AT [facility] 67 (BEAKER) (test code = FOSTER Paul [place] 1538) [address] HEMOGLOBIN AND [id number] 17:40:00 Test Item Value Reference Range Interpretation Comments HEMOGLOBIN (BEAKER) (test code = 8.4 GM/DL 13.7-17.5 L 410) HEMATOCRIT (BEAKER) (test code = 25.4 % 40.1-51.0 L 411) [id number] 13:06:00 Test Item Value Reference Range Interpretation Comments PARTIAL THROMBOPLASTIN TIME 61.4 seconds 22.5-36.0 H (BEAKER) (test code = 760) POCT-GLUCOSE [id number] 12:56:00 Test Item Value Reference Range Interpretation Comments POC-GLUCOSE METER 116 mg/dL 70-110 H [facility] [place] [address] [facility] (test code = FOSTER Paul [place] 1538) [address] [id number] 06:43:00 Test Item Value Reference Range Interpretation [...] 37 % 20-55 (test code = 2590) [id number] 05:32:00 Test Item Value Reference Range Interpretation Comments PARTIAL THROMBOPLASTIN TIME 63.7 seconds 22.5-36.0 H (BEAKER) (test code = 760) BASIC METABOLIC [id number] 05:03:00 Test Item Value Reference Range Interpretation [...] APPLICABLE FOR DIALYSIS PATIEN TS. HEPATIC FUNCTION [id number] 05:00:00 Test Item Value Reference Range Interpretation [...] (test code = 41 U/L 6-55 347) [id number] 04:40:00 Test Item Value Reference Range Interpretation [...] 0-0 (BEAKER) (test code = 413) POCT-GLUCOSE [id number] 00:30:00 Test Item Value Reference Range Interpretation Comments POC-GLUCOSE METER 112 mg/dL 70-110 H TESTED AT [facility] 6720 (BEAKER) (test code = [place]OST[place] 1538) [address] CBC W/PLT COUNT & AUTO [id number] 19:16:00 Test Item Value Reference Range Interpretation [...] % 0-1 PERCENT (BEAKER) (test code = 1865) POCT-GLUCOSE [id number] 18:27:00 Test Item Value Reference Range Interpretation Comments POC-GLUCOSE METER 102 mg/dL 70-110 TESTED AT [facility] 6720 (BEAKER) (test code = FOSTER [place] 1538) [address] POCT-GLUCOSE [id number] 13:01:00 Test Item Value Reference Range Interpretation Comments POC-GLUCOSE METER 119 mg/dL 70-110 H TESTED AT [facility] 6720 (BEAKER) (test code = FOSTER Paul [facility] 1538) [address] RAD, CHEST, 1 VIEW, NON [id number] 10:59:00Reason for exam:->ptxShould this be performed at [...] [place] Verified Date/Time: 01/24/2018 10:59:29 Reading Location: [facility] Diagnostic Imaging Reading Room - [place] [address] BRONCHIAL CULTURE + GRAM STAIN 2018-01-24 08:53:00 Test Item Value Reference Range Interpretation Comments CULTURE (BEAKER) 2+ Normal respiratory (test code = 1095) pete present GRAM STAIN RESULT 4+ White blood cells (BEAKER) (test code = seen 1123) GRAM STAIN RESULT No organisms seen (BEAKER) (test code = 09541) POCT-GLUCOSE [id number] 06:28:00 Test Item Value Reference Range Interpretation Comments POC-GLUCOSE METER 119 mg/dL 70-110 H TESTED AT [facility] 6720 (BEAKER) (test code = FOSTER Paul [facility] 1538) [address] BASIC METABOLIC [id number] 04:41:00 Test Item Value Reference Range Interpretation [...] WBC 0-0 (BEAKER) (test code = 413) [id number] 04:21:00 Test Item Value Reference Range Interpretation Comments MAGNESIUM (BEAKER) (test code = 2.0 mg/dL 1.6-2.6 627) HEPATIC FUNCTION [id number] 04:21:00 Test Item Value Reference Range Interpretation [...] = 36 U/L 6-55 347) Specimen slightly [id number] 04:13:00 Test Item Value Reference Range Interpretation Comments PARTIAL THROMBOPLASTIN TIME 72.1 seconds 22.5-36.0 H (BEAKER) (test code = 760) BLOOD GAS, [id number] 04:13:00 Test Item Value Reference Range Interpretation [...] (test code = 1819) 100.0 % POCT-GLUCOSE [id number] 00:08:00 Test Item Value Reference Range Interpretation Comments POC-GLUCOSE METER 150 mg/dL 70-110 H TESTED AT [facility] 6720 (BEAKER) (test code = FOSTER BR[place] 1538) [address] POCT-GLUCOSE [id number] 18:45:00 Test Item Value Reference Range Interpretation Comments POC-GLUCOSE METER 162 mg/dL 70-110 H TESTED AT [facility] 6720 (BEAKER) (test code = FOSTER Paul [place] 1538) [address] POCT-GLUCOSE [id number] 13:14:00 Test Item Value Reference Range Interpretation Comments POC-GLUCOSE METER 176 mg/dL 70-110 H TESTED AT [facility] 6720 (BEAKER) (test code = FOSTER Paul [place] 1538) [address] POCT-GLUCOSE [id number] 10:44:00 Test Item Value Reference Range Interpretation Comments POC-GLUCOSE METER 146 mg/dL 70-110 H TESTED AT [facility] 6720 (BEAKER) (test code = FOSTER Paul [place] 1538) [address] BLOOD GAS, [id number] 10:32:00 Test Item Value Reference Range Interpretation [...] 40.0 % RAD, CHEST, 1 VIEW, NON [id number] 09:14:00Reason for exam:->ptxShould this be performed at [...] [place] Verified Date/Time: 01/23/2018 09:14:48 Reading Location: [facility] Radiology Reading Room Electronically sign ed by: KYLE ROME M.D. on 01/23/2018 09:14 AMBLOOD [id number] 08:09:00 Test Item Value Reference Range Interpretation Comments CULTURE (BEAKER) A From Aerobi c Bottle (test code = Only [place] 1095) species GRAM STAIN From aerobic RESULT (BEAKER) bottle only: gram (test code = positive rods 1123) NOT DETECTEDPanel is negative for [employer] BCID-detectable organisms. Please refer to traditional culture and sensitivity results as they become available.Other organisms and resistance markers not contained in this PCR panel cannot be excluded and follow-up of traditional culture results is required. This sample was tested at the [facility] using the [employer] Blood Culture ID Panel. This test is FDA cleared for in vitro diagnostic use and has been verified and approved by the [facility] laboratory for clinical use. Reference Range: Not DetectedBLOOD GAS, [id number] 04:45:00 Test Item Value Reference Range Interpretation [...] code = 1819) 40.0 % BASIC METABOLIC [id number] 04:39:00 Test Item Value Reference Range Interpretation [...] APPLICABLE FOR DIALYSIS PATIEN TS. Specimen slightly [id number] 04:35:00 Test Item Value Reference Range Interpretation Comments MAGNESIUM (BEAKER) (test code = 1.8 mg/dL 1.6-2.6 627) HEPATIC FUNCTION [id number] 04:35:00 Test Item Value Reference Range Interpretation [...] = 40 U/L 6-55 347) Specimen slightly [id number] 04:18:00 Test Item Value Reference Range Interpretation [...] WBC 0-0 (test code = 413) POCT-GLUCOSE [id number] 00:52:00 Test Item Value Reference Range Interpretation Comments POC-GLUCOSE METER 145 mg/dL 70-110 H TESTED AT [place] [address] ([facility]) [facility] 1538) [address] BLOOD [id number] 00:00:00 Test Item Value Reference Range Interpretation Comments CULTURE ([facility]) (test No growth in 5 days code = 1095) POCT-GLUCOSE [id number] 18:17:00 Test Item Value Reference Range Interpretation Comments POC-GLUCOSE METER 97 mg/dL 70-110 TESTED AT [place] [address] ([facility]) (test code = FOSTER Paul [facility] [address] 1538) POCT-GLUCOSE [id number] 13:26:00 Test Item Value Reference Range Interpretation Comments POC-GLUCOSE METER 138 mg/dL 70-110 H TESTED AT [place] [address] ([facility]) ([facility] 1538) [address] BLOOD GAS, [id number] 10:32:00 Test Item Value Reference Range Interpretation Comments PH ARTERIAL ([facility]) (test code = 7.43 7.35-7.45 383) PCO2 [...] (test code = 1819) 40.0 % POCT-GLUCOSE [id number] 06:21:00 Test Item Value Reference Range Interpretation Comments POC-GLUCOSE METER 138 mg/dL 70-110 H TESTED AT [facility] 6720 (BEAKER) (test code = FOST[place] 1538) [address] BASIC METABOLIC [id number] 04:25:00 Test Item Value Reference Range Interpretation [...] APPLICABLE FOR DIALYSIS PATIEN TS. Specimen slightly [id number] 04:24:00 Test Item Value Reference Range Interpretation Comments MAGNESIUM (BEAKER) (test code = 2.1 mg/dL 1.6-2.6 627) HEPATIC FUNCTION [id number] 04:24:00 Test Item Value Reference Range Interpretation [...] /100 WBC 0-0 (test code = 413) [id number] 04:07:00 Test Item Value Reference Range Interpretation Comments PARTIAL THROMBOPLASTIN TIME 80.2 seconds 22.5-36.0 H (BEAKER) (test code = 760) BLOOD GAS, [id number] 04:06:00 Test Item Value Reference Range Interpretation [...] 40.0 % RAD, CHEST, 1 VIEW, NON [id number] 03:32:00Reason for exam:->ptxShould this be performed at [...] [facility] C[facility] Body Reading Room POCT-GLUCOSE [id number] 00:43:00 Test Item Value Reference Range Interpretation Comments POC-GLUCOSE METER 102 mg/dL 70-110 TESTED AT [facility] 6720 ([facility]) (test code = FOSTER BR[place] 1538) [address] [id number] 17:31:00 Test Item Value Reference Range Interpretation Comments PARTIAL THROMBOPLASTIN TIME 65.0 seconds 22.5-36.0 H (BEAKER) (test code = 760) POCT-GLUCOSE [id number] 17:24:00 Test Item Value Reference Range Interpretation Comments POC-GLUCOSE METER 171 mg/dL 70-110 H TESTED AT [facility] 6720 ([facility]) (test code = [place]OST[place] 1538) [address] POCT-GLUCOSE [id number] 13:01:00 Test Item Value Reference Range Interpretation Comments POC-GLUCOSE METER 144 mg/dL 70-110 H TESTED AT [place] [address] ([facility]) (test code = FOSTER Paul [place] 1538) [address] [id number] 11:12:00 Test Item Value Reference Range Interpretation Comments PARTIAL THROMBOPLASTIN TIME 67.9 seconds 22.5-36.0 H (BEAKER) (test code = 760) RAD, CHEST, 1 VIEW, NON [id number] 08:01:00Reason for exam:->ptxShould this be performed at [...] [place] Verified Date/Time: 01/21/2018 08:01:07 Reading Location: [facility] Radiology Reading Room POCT-GLUCOSE [id number] 06:50:00 Test Item Value Reference Range Interpretation Comments POC-GLUCOSE METER 149 mg/dL 70-110 H TESTED AT [facility] 6720 ([facility]) (test code = FOSTER Paul [place] 1538) [address] CBC (HEMOGRAM ONLY)2018-01-21 04:20:00 Test Item Value [...] /100 WBC 0-0 (test code = 413) [id number] 04:03:00 Test Item Value Reference Range Interpretation Comments PARTIAL THROMBOPLASTIN TIME 51.2 seconds 22.5-36.0 H (BEAKER) (test code = 760) BASIC METABOLIC [id number] 04:01:00 Test Item Value Reference Range Interpretation [...] APPLICABLE FOR DIALYSIS PATIEN TS. Specimen moderately [id number] 03:59:00 Test Item Value Reference Range Interpretation Comments MAGNESIUM (BEAKER) (test code = 2.0 mg/dL 1.6-2.6 627) HEPATIC FUNCTION [id number] 03:59:00 Test Item Value Reference Range Interpretation [...] U/L 6-55 347) Specimen moderately ictericVANCOMYCIN LEVEL, [id number] 03:57:00 Test Item Value Reference Range Interpretation Comments VANCOMYCIN RANDOM (BEAKER) (test 18.3 ug/mL code = 523) Reference Range: No NormalsOXYGEN SATURATION, [id number] 03:32:00 Test Item Value Reference Range Interpretation Comments O2 SATURATION (MEASURED) (BEAKER) 86.3 % (test code = 1455) BLOOD GAS, [id number] 03:30:00 Test Item Value Reference Range Interpretation [...] (test code = 1819) 40.0 % POCT-GLUCOSE [id number] 23:43:00 Test Item Value Reference Range Interpretation Comments POC-GLUCOSE METER 143 mg/dL 70-110 H TESTED AT [place] [address] ([facility]) (test code = FOSTER Paul [place] 1538) [address] BLOOD [id number] 18:00:00 Test Item Value Reference Range Interpretation Comments CULTURE (BEAKER) (test No growth in 5 days code = 1095) BLOOD [id number] 18:00:00 Test Item Value Reference Range Interpretation Comments CULTURE (BEAKER) (test No growth in 5 days code = 1095) POCT-GLUCOSE [id number] 16:32:00 Test Item Value Reference Range Interpretation Comments POC-GLUCOSE METER 185 mg/dL 70-110 H TESTED AT [place] [address] ([facility]) (test code = FOST[place] 1538) [address] MISCELLANEOUS LAB [id number] 15:04:00 Test Item Value Reference Range Interpretation Comments SCAN RESULT (test code = 7467939) Result comments: NOT DETECTED Panel is negative for [employer] BCID-detectable organisms. Please refer to traditional culture and sensitivity results as they become available. Other organisms and resistance markers not contained in this PCR panel cannot be excluded and follow-up of traditional culture results is required. This sample was tested at the [facility] using the [employer] Blood Culture ID Panel. This test is FDA cleared for in vitro diagnostic use and hasbeen verified and approved by the [facility] laboratory for clinical use. ReferenceRange: Not Detected POCT-GLUCOSE [id number] 12:25:00 Test Item Value Reference Range Interpretation Comments POC-GLUCOSE METER 116 mg/dL 70-110 H TESTED AT [facility] 67 ([facility]) (test code = FOSTER Paul [facility] 1538) [address] RAD, CHEST, 1 VIEW, NON [id number] 06:38:00Reason for exam:->pl effusionShould this be performed [...] [place] Verified Date/Time: 01/20/2018 06:38:33 Reading Location: [facility] C013Y CT Body Reading Room POCT-GLUCOSE [id number] 05:54:00 Test Item Value Reference Range Interpretation Comments POC-GLUCOSE METER 231 mg/dL 70-110 H TESTED AT [facility] 6720 (BEAKER) (test code = FOSTER Paul [facility] 1538) [address] VANCOMYCIN LEVEL, [id number] 04:23:00 Test Item Value Reference Range Interpretation Comments VANCOMYCIN RANDOM (BEAKER) (test 25.8 ug/mL code = 523) Reference Range: No [id number] 04:17:00 Test Item Value Reference Range Interpretation Comments MAGNESIUM (BEAKER) (test code = 2.0 mg/dL 1.6-2.6 627) HEPATIC FUNCTION [id number] 04:17:00 Test Item Value Reference Range Interpretation [...] 6-55 H 347) Specimen moderately ictericBASIC METABOLIC [id number] 04:17:00 Test Item Value Reference Range Interpretation [...] APPLICABLE FOR DIALYSIS PATIEN TS. Specimen moderately [id number] 04:05:00 Test Item Value Reference Range Interpretation Comments PARTIAL THROMBOPLASTIN TIME 69.7 seconds 22.5-36.0 H (BEAKER) (test code = 760) CBC W/PLT COUNT & AUTO [id number] 03:49:00 Test Item Value Reference Range Interpretation [...] (BEAKER) (test code = 280) OXYGEN SATURATION, [id number] 03:48:00 Test Item Value Reference Range Interpretation Comments O2 SATURATION (MEASURED) (BEAKER) 84.1 % (test code = 1455) POCT-GLUCOSE [id number] 23:14:00 Test Item Value Reference Range Interpretation Comments POC-GLUCOSE METER 248 mg/dL 70-110 H [facility] (test code = [place] 153) [address] POCT-GLUCOSE [id number] 18:56:00 Test Item Value Reference Range Interpretation Comments POC-GLUCOSE METER 213 mg/dL 70-110 H TESTED AT [facility] 6720 (BEAKER) (test code = [place]OST[place] 1538) [address] POCT-GLUCOSE [id number] 14:06:00 Test Item Value Reference Range Interpretation Comments POC-GLUCOSE METER 210 mg/dL 70-110 H TESTED AT [facility] 6720 (BEAKER) (test code = FOSTER Paul [place] 1538) [address] SPUTUM CULTURE + GRAM [id number] 13:45:00 Test Item Value Reference Range Interpretation Comments CULTURE (BEAKER) 4+ Normal respiratory (test code = 1095) pete present GRAM STAIN RESULT 4+ WBCs (BEAKER) (test code = 1123) GRAM STAIN RESULT 0-5 epithelial cells (BEAKER) (test code = 92416) GRAM STAIN RESULT 3+ gram negative rods (BEAKER) (test code = 17120) GRAM STAIN RESULT 2+ gram positive cocci (BEAKER) (test code = in pairs and clusters 910211) [id number] 12:37:00 Test Item Value Reference Range Interpretation Comments PARTIAL THROMBOPLASTIN TIME 74.3 seconds 22.5-36.0 H (BEAKER) (test code = 760) CBC W/PLT COUNT & AUTO [id number] 10:52:00 Test Item Value Reference Range Interpretation [...] H (test code = 413) VANCOMYCIN LEVEL, [id number] 05:41:00 Test Item Value Reference Range Interpretation Comments VANCOMYCIN RANDOM (BEAKER) (test 27.9 ug/mL code = 523) Reference Range: No NormalsBASIC METABOLIC [id number] 05:39:00 Test Item Value Reference Range Interpretation [...] APPLICABLE FOR DIALYSIS PATIEN TS. Specimen moderately [id number] 05:36:00 Test Item Value Reference Range Interpretation Comments MAGNESIUM (BEAKER) (test code = 2.0 mg/dL 1.6-2.6 627) [id number] 05:36:00 Test Item Value Reference Range Interpretation Comments PHOSPHORUS (BEAKER) (test code = 3.9 mg/dL 2.3-4.7 604) HEPATIC FUNCTION [id number] 05:36:00 Test Item Value Reference Range Interpretation [...] 6-55 H 347) Specimen moderately ictericOXYGEN SATURATION, [id number] 05:33:00 Test Item Value Reference Range Interpretation [...] WBC 0-0 H (test code = 413) [id number] 05:24:00 Test Item Value Reference Range Interpretation Comments PARTIAL THROMBOPLASTIN TIME 68.1 seconds 22.5-36.0 H (BEAKER) (test code = 760) RAD, CHEST, 1 VIEW, NON [id number] 04:41:00Reason for exam:->pl effusionShould this be performed at the bedside?->YesFINAL REPORT CLINICAL INDICATION: Support lines. Comparison: 01/18/2018 The ca rdiomediastinal contours are stable. Central pulmonary vascular congestion and bilateral parenchymalopacities are unchanged. There is no pneumothorax. Support lines are stable. Signed: Kellen Parra Verified Date/Time: 01/19/2018 04:41:27 Reading Location: [address] Reading Room APTT 2018-01-19 00:38:00 Test Item Value Reference Range Interpretation Comments PARTIAL THROMBOPLASTIN TIME 45.5 seconds 22.5-36.0 H (BEAKER) (test code = 760) POCT-GLUCOSE [id number] 00:21:00 Test Item Value Reference Range Interpretation Comments POC-GLUCOSE METER 189 mg/dL 70-110 H TESTED AT [place] [address] ([facility]) (test code = [place] 1538) [address] POCT-GLUCOSE [id number] 23:34:00 Test Item Value Reference Range Interpretation Comments POC-GLUCOSE METER 162 mg/dL 70-110 H TESTED AT [place] [address] ([facility]) (test code = [place] 1538) [address] POCT-GLUCOSE [id number] 18:09:00 Test Item Value Reference Range Interpretation Comments POC-GLUCOSE METER 172 mg/dL 70-110 H TESTED AT [place] [address] ([facility]) (test code = [place] [facility] 1538) [address] RAD, ABDOMEN/KUB, 1 VIEW [id number] 17:36:00Reason for exam:->ileusShould this be performed at the bedside?->YesFINAL REPORT Comparison: 01/17/2018 TECHNIQUE: Frontal image of the abdomen FINDINGS: There is a nonspecific bowel gas pattern. Tip of nasogastric projects in the distal stomach. No gross free intraperitoneal air. No acute skeletal abnormality. Signed: Kyle Rome MDReport Verified Date/Time: 01/18/2018 17:36:02 Reading Location: [address] Transitional Reading Room [id number] 17:10:00 Test Item Value Reference Range Interpretation Comments PARTIAL THROMBOPLASTIN TIME 27.8 seconds 22.5-36.0 (BEAKER) (test code = 760) Prior to initiating heparinPOCT-GLUCOSE [id number] 15:22:00 Test Item Value Reference Range Interpretation Comments POC-GLUCOSE METER 126 mg/dL 70-110 H TESTED AT [facility] (BEAKER) (test code = [place] [facility] 1538) [address] [id number] 13:02:00 Test Item Value Reference Range Interpretation Comments PHOSPHORUS (BEAKER) (test code = 3.8 mg/dL 2.3-4.7 604) BASIC METABOLIC [id number] 13:02:00 Test Item Value Reference Range Interpretation [...] FOR DIALYSIS PATIEN TS. Specimen moderately ictericPOCT-GLUCOSE [id number] 12:11:00 Test Item Value Reference Range Interpretation Comments POC-GLUCOSE METER 113 mg/dL 70-110 H TESTED AT [facility] 67[facility] (BEAKER) (test code = [place] 1538) [address] CBC W/PLT COUNT & AUTO [id number] 12:03:00 Test Item Value Reference Range Interpretation [...] = 413) RAD, CHEST, 1 VIEW, NON [id number] 09:44:00Reason for exam:->pl effusionShould this be performed [...] MDReport Verified Date/Time: 01/18/2018 09:44:26 Reading Location: [address] Transitional Reading Room SPUTUM CULTURE + GRAM [id number] 08:09:00 Test Item Value Reference Range Interpretation Comments CULTURE (BEAKER) 3+ Normal respiratory (test code = 1095) pete present GRAM STAIN RESULT 4+ WBCs (BEAKER) (test code = 1123) GRAM STAIN RESULT 0-5 epithelial cells (BEAKER) (test code = 61514) GRAM STAIN RESULT No organisms seen (BEAKER) (test code = 81000) POCT-GLUCOSE [id number] 07:52:00 Test Item Value Reference Range Interpretation Comments POC-GLUCOSE METER 146 mg/dL 70-110 H TESTED AT [facility] 67[facility] (BEAKER) (test code = [facility] 1538) [address] POCT-GLUCOSE [id number] 06:30:00 Test Item Value Reference Range Interpretation Comments POC-GLUCOSE METER 135 mg/dL 70-110 H [facility] (test code = [facility] 1538) [address] POCT-GLUCOSE [id number] 06:30:00 Test Item Value Reference Range Interpretation Comments POC-GLUCOSE METER 130 mg/dL 70-110 H TESTED AT [place] [address] (BEAKER) (test code = [facility] 1538) [address] [id number] 03:56:00 Test Item Value Reference Range Interpretation Comments PHOSPHORUS (BEAKER) (test code = 3.1 mg/dL 2.3-4.7 604) [id number] 03:56:00 Test Item Value Reference Range Interpretation Comments MAGNESIUM (BEAKER) (test code = 2.0 mg/dL 1.6-2.6 627) HEPATIC FUNCTION [id number] 03:56:00 Test Item Value Reference Range Interpretation [...] 6-55 H 347) Specimen moderately ictericVANCOMYCIN LEVEL, [id number] 03:53:00 Test Item Value Reference Range Interpretation Comments VANCOMYCIN RANDOM (BEAKER) (test 18.0 ug/mL code = 523) Reference Range: No [id number] 03:48:00 Test Item Value Reference Range Interpretation Comments CALCIUM (BEAKER) (test code = 697) 8.1 mg/dL 8.4-10.2 L CALCIUM, [id number] 03:34:00 Test Item Value Reference Range Interpretation Comments CALCIUM IONIZED (BEAKER) (test 1.06 mmol/L 1.12-1.27 L code = 698) PH, BLOOD (BEAKER) (test code = 7.38 1810) OXYGEN SATURATION, [id number] 03:33:00 Test Item Value Reference Range Interpretation Comments O2 SATURATION (MEASURED) (BEAKER) 85.8 % (test code = 1455) POCT-GLUCOSE [id number] 03:26:00 Test Item Value Reference Range Interpretation Comments POC-GLUCOSE METER 144 mg/dL 70-110 H [facility] (test code = [place] 1538) [address] POCT-GLUCOSE [id number] 03:26:00 Test Item Value Reference Range Interpretation Comments POC-GLUCOSE METER 163 mg/dL 70-110 H TESTED AT [facility] (test code = [place] 1538) [address] POCT-GLUCOSE [id number] 01:04:00 Test Item Value Reference Range Interpretation Comments POC-GLUCOSE METER 159 mg/dL 70-110 H TESTED AT [facility] 67[address] (BEAKER) (test code = [place] 1538) [address] POCT-GLUCOSE [id number] 00:12:00 Test Item Value Reference Range Interpretation Comments POC-GLUCOSE METER 132 mg/dL 70-110 H TESTED AT [facility] 67[address] (BEAKER) (test code = [place] 1538) [address] LACTIC ACID, ARTERIAL, WHOLE [id number] 23:54:00 Test Item Value Reference Range Interpretation Comments LACTATE BLOOD ARTERIAL (2) 0.7 mmol/L 0.5-2.2 (BEAKER) (test code = 2874) Effective 01/04/2016: Units/Reference Range ChangeNew: 0.5-2.2 mmol/L Previous: 5-20 mg/dLSpecimen moderately ictericPOTASSIUM-STAT [id number] 23:30:00 Test Item Value Reference Range Interpretation Comments POTASSIUM (BEAKER) (test code = 4.0 meq/L 3.6-5.5 379) BLOOD GAS, [id number] 23:30:00 Test Item Value Reference Range Interpretation [...] code = 1819) 50.0 % SODIUM NA-STAT [id number] 23:30:00 Test Item Value Reference Range Interpretation Comments SODIUM (BEAKER) (test code = 381) 134 meq/L 135-148 L GLUCOSE-STAT [id number] 23:30:00 Test Item Value Reference Range Interpretation Comments GLUCOSE RANDOM (BEAKER) (test code 138 mg/dL 70-110 H = 652) HGB/HCT (H&H) - STAT [id number] 23:30:00 Test Item Value Reference Range Interpretation Comments HEMOGLOBIN (AKER) (test code = 9.0 g/dL 13.0-16.8 L 410) HEMATOCRIT ([facility]) (test code = 26.0 % 40.0-50.0 L 411) CALCIUM, [id number] 23:30:00 Test Item Value Reference Range Interpretation Comments CALCIUM IONIZED ([facility]) (test 1.04 mmol/L 1.12-1.27 L code = 698) PH, BLOOD ([facility]) (test code = 7.48 1810) OXYGEN SATURATION, [id number] 23:28:00 Test Item Value Reference Range Interpretation Comments O2 SATURATION (MEASURED) ([facility]) 82.0 % (test code = 1455) POCT-GLUCOSE [id number] 21:35:00 Test Item Value Reference Range Interpretation Comments POC-GLUCOSE METER 99 mg/dL 70-110 TESTED AT [facility] ([facility]) [facility] [address]) POCT-GLUCOSE [id number] 21:35:00 Test Item Value Reference Range Interpretation Comments POC-GLUCOSE METER 111 mg/dL 70-110 H TESTED AT [place] [address] ([facility]) (test code = [facility] 1538) [address] RAD, CHEST, 1 VIEW, NON [id number] 17:08:00Reason for exam:->LIJ placment CVCShould this be [...] MDReport Verified Date/Time: 01/17/2018 17:08:24 Reading Location: [facility] Radiology Reading Room GLUCOSE-STAT [id number] 16:33:00 Test Item Value Reference Range Interpretation Comments GLUCOSE RANDOM (BEAKER) (test code 147 mg/dL 70-110 H = 652) POTASSIUM-STAT [id number] 16:32:00 Test Item Value Reference Range Interpretation Comments POTASSIUM (BEAKER) (test code = 4.7 meq/L 3.6-5.5 379) [id number] 15:03:00 Test Item Value Reference Range Interpretation Comments PROCALCITONIN (BEAKER) (test code 5.33 ng/mL <0.05 H = 3036) SEPSIS RISK (ng/mL)Low: 0.05-0.50Intermediate: 0.51-2.00High: >=2.01CT BRAIN WITHOUT IV CONTRAST - [id number] 13:50:00Reason for exam:->altered mental statusFINAL REPORT CT [...] Grandaeport Verified Date/Time: 01/17/2018 13:50:42 Reading Location: [facility] Radiology Reading Room CALCIUM, [id number] 12:36:00 Test Item Value Reference Range Interpretation Comments CALCIUM IONIZED (BEAKER) (test 1.09 mmol/L 1.12-1.27 L code = 698) PH, BLOOD (BEAKER) (test code = 7.36 1810) GLUCOSE-STAT [id number] 12:36:00 Test Item Value Reference Range Interpretation Comments GLUCOSE RANDOM (BEAKER) (test code 147 mg/dL 70-110 H = 652) POTASSIUM-STAT [id number] 12:36:00 Test Item Value Reference Range Interpretation Comments POTASSIUM (BEAKER) (test code = 4.7 meq/L 3.6-5.5 379) RAD, ABDOMEN/KUB, 1 VIEW [id number] 08:42:00Reason for exam:->ileusShould this be performed at [...] Sladeort Verified Date/Time: 01/17/2018 08:42:09 Reading Location: [facility] Radiology Reading Room CBC W/PLT COUNT & AUTO [id number] 08:18:00 Test Item Value Reference Range Interpretation [...] (test code = 413) HEPARIN ASSAY - [id number] 08:07:00 Test Item Value Reference Range Interpretation Comments UNFRACTIONATED HEPARIN-ANTI 10A < u/ml 0.30-0.70 L ([facility]) (test code = 1606) Recommendations for Monitoring Unfractionated Heparin Therapeutic Range: 0.3- 0.7 u/mL with continuous IV infusionPOCT-GLUCOSE [id number] 06:09:00 Test Item Value Reference Range Interpretation Comments POC-GLUCOSE METER 143 mg/dL 70-110 H TESTED AT [facility] ([facility]) (test code = [place] 1538) [address] RAD, CHEST, 1 VIEW, NON [id number] 04:43:00Reason for exam:->acute respiratory insufficiencyShould this be [...] Cruzdamion Verified Date/Time: 01/17/2018 04:43:34 Reading Location: [facility] [id number] Body Reading Room OXYGEN SATURATION, [id number] 04:13:00 Test Item Value Reference Range Interpretation Comments O2 SATURATION (MEASURED) (BEAKER) 85.7 % (test code = 1455) [id number] 04:06:00 Test Item Value Reference Range Interpretation Comments PHOSPHORUS (BEAKER) (test code = 3.1 mg/dL 2.3-4.7 604) [id number] 04:06:00 Test Item Value Reference Range Interpretation Comments MAGNESIUM (BEAKER) (test code = 2.1 mg/dL 1.6-2.6 627) COMPREHENSIVE METABOLIC [id number] 04:06:00 Test Item Value Reference Range Interpretation [...] DIALYSIS PATIEN TS. Specimen moderately ictericHEPATIC FUNCTION [id number] 04:06:00 Test Item Value Reference Range Interpretation [...] 347) Specimen moderately ictericLACTIC ACID, ARTERIAL, WHOLE [id number] 03:59:00 Test Item Value Reference Range Interpretation Comments LACTATE BLOOD 0.5 mmol/L 0.5-2.2 Specimen sligh tly ARTERIAL (2) (BEAKER) hemoly zed (test code = 2874) Effective 01/04/2016: Units/Reference Range ChangeNew: 0.5-2.2 mmol/L Previous: 5-20 mg/dLSpecimen moderately ictericBLOOD GAS, [id number] 03:58:00 Test Item Value Reference Range Interpretation Comments PH ARTERIAL (BEAKER) (test code = 7.42 7.35-7.45 383) PCO2 ARTERIAL (BEAKER) (test code 40 mmHg 35-45 = 384) PO2 ARTERIAL (BEAKER) (test code = 131 mmHg 80-90 H 385) O2 SATURATION ARTERIAL (BEAKER) 98.8 % 96.0-97.0 H (test code = 386) HCO3 ARTERIAL (BEAKER) (test code 26 mmol/L 21-29 = 388) BASE EXCESS ARTERIAL ([facility]) 0.8 mmol/L -2.0-3.0 (test code = 387) PATIENT TEMPERATURE ([facility]) (test 35.6 C code = 1818) FIO2 ([facility]) (test code = 1819) 40.0 % CALCIUM, [id number] 03:58:00 Test Item Value Reference Range Interpretation Comments CALCIUM IONIZED ([facility]) (test 1.14 mmol/L 1.12-1.27 code = 698) PH, BLOOD ([facility]) (test code = 7.41 1810) POCT-GLUCOSE [id number] 02:41:00 Test Item Value Reference Range Interpretation Comments POC-GLUCOSE METER 144 mg/dL 70-110 H TESTED AT [place] [address] ([facility]) ([facility] 1538) [address] POCT-GLUCOSE [id number] 00:30:00 Test Item Value Reference Range Interpretation Comments POC-GLUCOSE METER 171 mg/dL 70-110 H TESTED AT [place] [address] ([facility]) (test code = [facility] Humberto [facility] 1538) [address] POTASSIUM-STAT [id number] 00:08:00 Test Item Value Reference Range Interpretation Comments POTASSIUM ([facility]) (test code = 4.5 meq/L 3.6-5.5 379) POCT-GLUCOSE [id number] 23:30:00 Test Item Value Reference Range Interpretation Comments POC-GLUCOSE METER 159 mg/dL 70-110 H TESTED AT [place] [address] ([facility]) ([facility] 1538) [address] POCT-GLUCOSE [id number] 21:08:00 Test Item Value Reference Range Interpretation Comments POC-GLUCOSE METER 194 mg/dL 70-110 H TESTED AT [place] [address] ([facility]) (test [facility] = [facility] [place] 1538) [address] POCT-GLUCOSE [id number] 21:08:00 Test Item Value Reference Range Interpretation Comments POC-GLUCOSE METER 230 mg/dL 70-110 H TESTED AT [place] [address] ([facility]) (test code = [facility] Humberto [place] 1538) [address] CALCIUM, [id number] 19:23:00 Test Item Value Reference Range Interpretation Comments CALCIUM IONIZED (BEAKER) (test 1.14 mmol/L 1.12-1.27 code = 698) PH, BLOOD (BEAKER) (test code = 7.36 1810) POTASSIUM-STAT [id number] 19:23:00 Test Item Value Reference Range Interpretation Comments POTASSIUM (BEAKER) (test code = 5.1 meq/L 3.6-5.5 379) [id number] 17:27:00 Test Item Value Reference Range Interpretation Comments PHOSPHORUS (BEAKER) (test code = 2.2 mg/dL 2.3-4.7 L 604) [id number] 17:27:00 Test Item Value Reference Range Interpretation Comments MAGNESIUM (BEAKER) (test code = 2.1 mg/dL 1.6-2.6 627) PH, [id number] 17:03:00 Test Item Value Reference Range Interpretation Comments PH ARTERIAL (BEAKER) (test code = 383) 7.39 7.35-7.45 POCT-GLUCOSE [id number] 16:43:00 Test Item Value Reference Range Interpretation Comments POC-GLUCOSE METER 95 mg/dL 70-110 TESTED AT [place] [id number] ([facility]) (test code = [facility] [address] 1538) POCT-GLUCOSE [id number] 14:41:00 Test Item Value Reference Range Interpretation Comments POC-GLUCOSE METER 134 mg/dL 70-110 H TESTED AT [place] [address] ([facility]) (test code = [facility] 1538) [address] RAD, ABDOMEN/KUB, 1 VIEW [id number] 13:16:00Reason for exam:- >constipationShould this be performed [...] MDReport Verified Date/Time: 01/16/2018 13:16:27 Reading Location: [facility] Reading Room Electronically signed by: KAY WALTER on01/16/2018 01:16 PMCALCIUM, [id number] 12:38:00 Test Item Value Reference Range Interpretation Comments CALCIUM IONIZED ([facility]) (test 1.14 mmol/L 1.12-1.27 code = 698) PH, BLOOD ([facility]) (test code = 7.40 1810) POCT-GLUCOSE [id number] 12:29:00 Test Item Value Reference Range Interpretation Comments POC-GLUCOSE METER 127 mg/dL 70-110 H TESTED AT [place] [address] ([facility]) (test code = [facility] 1538) [address] POCT-GLUCOSE [id number] 10:34:00 Test Item Value Reference Range Interpretation Comments POC-GLUCOSE METER 130 mg/dL 70-110 H TESTED AT [place] [address] ([facility]) (test code = [facility] 1538) [address] POCT-GLUCOSE [id number] 09:10:00 Test Item Value Reference Range Interpretation Comments POC-GLUCOSE METER 151 mg/dL 70-110 H TESTED AT [place] [address] ([facility]) (test code = [facility] 1538) [address] HEPARIN ASSAY - [id number] 09:00:00 Test Item Value Reference Range Interpretation Comments UNFRACTIONATED HEPARIN-ANTI 10A < u/ml 0.30-0.70 L ([facility]) (test code = 1606) Recommendations for Monitoring Unfractionated Heparin Therapeutic Range: 0.3- 0.7 u/mL with continuous IV infusionCBC W/PLT COUNT & AUTO DIFFERENTIAL 2018-01-16 08:55:00 Test Item Value Reference Range Interpretation Comments WHITE BLOOD CELL COUNT ([facility]) 11.9 K/ L 3.5-10.5 H (test code = 775) RED BLOOD CELL COUNT ([facility]) 2.64 M/ L 4.63-6.08 L (test code = 761) HEMOGLOBIN ([facility]) (test code = 8.4 GM/DL 13.7-17.5 L 410) HEMATOCRIT ([facility]) (test code = 25.2 % 40.1-51.0 L [...] H (test code = 413) OXYGEN SATURATION, [id number] 08:30:00 Test Item Value Reference Range Interpretation Comments O2 SATURATION (MEASURED) (BEAKER) 87.1 % (test code = 1455) RAD, CHEST, 1 VIEW, NON [id number] 08:11:00Reason for exam:->acute respiratory insufficiencyShould this be performed at the bedside?->YesFINAL REPORT CLINICAL HISTORY: acute respiratory insufficiency TECHNIQUE: 1 view of the chest. COMPARISON: 01/15/2018 IMPRESSION: The [place] catheter has been removed. The supporting lines and tubes are otherwise unchanged. There is no pneumothorax. Mild bilateral perihilar lung opacities have decreased. The cardiomediastinal silhouette is magnified by technique with sternotomy wires. Signed: Lorna Slade MDReport Verified Date/Time: 01/16/2018 08:11:02 Reading Location: [facility] Radiology Reading Room POCT- GLUCOSE [id number] 06:43:00 Test Item Value Reference Range Interpretation Comments POC-GLUCOSE METER 107 mg/dL 70-110 TESTED AT [facility] 67[facility] ([facility]) (test code = [place] 1538) [address] U/S, ABDOMINAL, [id number] 05:25:00Abdomen limited area? Add comment if clarification [...] Body Reading Room IC ACID, ARTERIAL, WHOLE [id number] 04:06:00 Test Item Value Reference Range Interpretation Comments LACTATE BLOOD ARTERIAL (2) 0.6 mmol/L 0.5-2.2 (BEAKER) (test code = 2874) Effective 01/04/2016: Units/Reference Range ChangeNew: 0.5-2.2 mmol/L Previous: 5-20 mg/dLSpecimen moderately [id number] 04:00:00 Test Item Value Reference Range Interpretation Comments PHOSPHORUS (BEAKER) (test code = 2.2 mg/dL 2.3-4.7 L 604) [id number] 04:00:00 Test Item Value Reference Range Interpretation Comments MAGNESIUM (BEAKER) (test code = 2.0 mg/dL 1.6-2.6 627) [id number] 04:00:00 Test Item Value Reference Range Interpretation Comments CALCIUM (BEAKER) (test code = 697) 8.5 mg/dL 8.4-10.2 COMPREHENSIVE METABOLIC [id number] 04:00:00 Test Item Value Reference Range Interpretation [...] DIALYSIS PATIEN TS. Specimen moderately ictericHEPATIC FUNCTION [id number] 04:00:00 Test Item Value Reference Range Interpretation [...] 6-55 H 347) Specimen moderately ictericBLOOD GAS, [id number] 03:51:00 Test Item Value Reference Range Interpretation [...] (test code = 1819) 60.0 % PROTHROMBIN [id number] 03:51:00 Test Item Value Reference Range Interpretation Comments PROTIME (BEAKER) (test code = 15.2 seconds 11.7-14.7 H 759) INR (BEAKER) (test code = 370) 1.2 <=5.9 RECOMMENDED COUMADIN/WARFARIN INR THERAPY RANGESSTANDARD DOSE: 2.0 - 3.0 Includes: PROPHYLAXIS forvenous thrombosis, systemic embolization; TREATMENT for venous thrombosis and/or pulmonary embolus.HIGH RISK: Target INR is 2.5-3.5 for patients with mechanical heart valves.CALCIUM, [id number] 03:51:00 Test Item Value Reference Range Interpretation Comments CALCIUM IONIZED (BEAKER) (test 1.17 mmol/L 1.12-1.27 code = 698) PH, BLOOD (BEAKER) (test code = 7.42 1810) POCT-GLUCOSE [id number] 02:08:00 Test Item Value Reference Range Interpretation Comments POC-GLUCOSE METER 110 mg/dL 70-110 TESTED AT [place] [address] ([facility]) (test code = F[place]ER Paul [facility] 1538) [address] POCT-GLUCOSE [id number] 01:14:00 Test Item Value Reference Range Interpretation Comments POC-GLUCOSE METER 107 mg/dL 70-110 TESTED AT [place] [address] ([facility]) (test code = [place] [facility] 1538) [address] POCT-GLUCOSE [id number] 00:29:00 Test Item Value Reference Range Interpretation Comments POC-GLUCOSE METER 129 mg/dL 70-110 H TESTED AT [place] [address] ([facility]) (test code = [place]ER [place] [facility] 1538) [address] POCT-GLUCOSE [id number] 23:07:00 Test Item Value Reference Range Interpretation Comments POC-GLUCOSE METER 152 mg/dL 70-110 H TESTED AT [place] [address] ([facility]) (test code = FOSTER Paul [facility] 1538) [address] POCT-GLUCOSE [id number] 22:09:00 Test Item Value Reference Range Interpretation Comments POC-GLUCOSE METER 171 mg/dL 70-110 H TESTED AT [place] [address] ([facility]) ([facility] 1538) [address] POCT-GLUCOSE [id number] 21:13:00 Test Item Value Reference Range Interpretation Comments POC-GLUCOSE METER 171 mg/dL 70-110 H TESTED AT [place] [address] ([facility]) (test code = [facility] Humberto [facility] 1538) [address] CALCIUM, [id number] 20:50:00 Test Item Value Reference Range Interpretation Comments CALCIUM IONIZED ([facility]) (test 1.15 mmol/L 1.12-1.27 code = 698) PH, BLOOD ([facility]) (test code = 7.34 1810) POCT-GLUCOSE [id number] 20:21:00 Test Item Value Reference Range Interpretation Comments POC-GLUCOSE METER 206 mg/dL 70-110 H TESTED AT [place] [address] ([facility]) (test code = [facility] Humberto [facility] 1538) [address] POCT-GLUCOSE [id number] 19:16:00 Test Item Value Reference Range Interpretation Comments POC-GLUCOSE METER 197 mg/dL 70-110 H TESTED AT [facility] 67[facility] ([facility]) (test code = [place] 1538) [address] [id number] 17:15:00 Test Item Value Reference Range Interpretation Comments PHOSPHORUS ([facility]) (test code = 4.1 mg/dL 2.3-4.7 604) [id number] 17:15:00 Test Item Value Reference Range Interpretation Comments MAGNESIUM ([facility]) (test code = 1.9 mg/dL 1.6-2.6 627) EEG AWAKE AND [id number] 14:56:00For STAT EEG- after 5 PM weekdays, weekends and holidays, page the on-call EEG TechReason for exam:->AMSShould this be performed at the bedside?->YesDate(s) of EE01/15/2018DATE OF REPORT: 01/15/2018ACC: [id number] Number: [id number] Location: Inpatient ICUStart time: 13:18Stop time: 13:40ICD-10: R41.82CPT Code: 97524 HISTORY: 62 y/o man with hxof AFib, [...] Kwon MD, MSClinic al Neurophysiology/Epilepsy Attending HEPARIN [id number] 13:21:00 Test Item Value Reference Range Interpretation Comments HEPARIN ANTIBODY ([facility]) (test code Negative Negative = 646) HEPARIN ANTIBODY OD ([facility]) (test 0.076 <0.400 code = 2659) 4T TOTAL SCORE ([facility]) (test code = 5 5391) Probability of HIT based on scoring system: 6-8 = High probability; 4-5 = intermediate probability;0-3 = low probabilityPOCT-GLUCOSE [id number] 12:26:00 Test Item Value Reference Range Interpretation Comments POC-GLUCOSE METER 128 mg/dL 70-110 H TESTED AT [facility] ([facility]) (test code = [place] 1538) [address] FIBRIN SOLUBLE [id number] 11:02:00 Test Item Value Reference Range Interpretation Comments FIBRIN SOLUBLE MONOMER (AKER) Negative (test code = 1416) HEPARIN ASSAY - [id number] 10:20:00 Test Item Value Reference Range Interpretation Comments UNFRACTIONATED HEPARIN-ANTI 10A < u/ml 0.30-0.70 L ([facility]) (test code = 1606) Recommendations for Monitoring Unfractionated Heparin Therapeutic Range: 0.3- 0.7 u/mL with continuous IV [id number] 10:14:00 Test Item Value Reference Range Interpretation Comments [facility] 3.76 MG/L FEU <0.50 H (test code [...] of thrombosis is within 95-100% range. GLUCOSE-STAT [id number] 10:03:00 Test Item Value Reference Range Interpretation Comments GLUCOSE RANDOM (BEAKER) (test code 151 mg/dL 70-110 H = 652) CALCIUM, [id number] 10:02:00 Test Item Value Reference Range Interpretation Comments CALCIUM IONIZED (BEAKER) (test 1.13 mmol/L 1.12-1.27 code = 698) PH, BLOOD (BEAKER) (test code = 7.36 1810) POTASSIUM-STAT [id number] 10:01:00 Test Item Value Reference Range Interpretation Comments POTASSIUM (BEAKER) (test code = 4.3 meq/L 3.6-5.5 379) CBC W/PLT COUNT & AUTO [id number] 07:43:00 Test Item Value Reference Range Interpretation [...] = 2801) RAD, CHEST, 1 VIEW, NON [id number] 04:00:00Reason for exam:->acute respiratory insufficiencyShould this be performed at the bedside?->Yes Addendum BeginsREPORT STATUS:A Correction: Comparison is made to previous dated 01/14/2018. Signed: Kellen Parraort Verified Date/Time: 01/15/2018 04:00:43 Reading Location: [address] Reading RoomAddendum EndsFINAL REPORT CLINICAL ADEEL CATION: Respiratory insufficiency Comparison: 01/15/2018 The cardiomediastinal contours are stable. Central pulmonary vascular congestion and bilateral parenchymal opacities are unchanged. There is no pneumothorax. Support lines are stable. Signed: Kellen Parra MDReport Verified Date/Time: 01/15/201803:46:27 Reading Location: [address] Reading Room [id number] 03:36:00 Test Item Value Reference Range Interpretation Comments PHOSPHORUS (BEAKER) (test code = 2.7 mg/dL 2.3-4.7 604) [id number] 03:36:00 Test Item Value Reference Range Interpretation Comments MAGNESIUM (BEAKER) (test code = 2.0 mg/dL 1.6-2.6 627) COMPREHENSIVE METABOLIC [id number] 03:36:00 Test Item Value Reference Range Interpretation [...] DIALYSIS PATIEN TS. Specimen slightly ictericHEPATIC FUNCTION [id number] 03:36:00 Test Item Value Reference Range Interpretation [...] U/L 6-55 H 347) Specimen slightly ictericPROTHROMBIN [id number] 03:35:00 Test Item Value Reference Range Interpretation [...] mmol/L Previous: 5-20 mg/dLSpecimen slightly ictericBLOOD GAS, [id number] 03:29:00 Test Item Value Reference Range Interpretation [...] -2.0-3.0 (test code = 387) PATIENT TEMPERATURE ([facility]) 37.0 C (test code = 1818) [facility] (test code = 1819) 40.0 % OXYGEN SATURATION, [id number] 03:26:00 Test Item Value Reference Range Interpretation Comments O2 SATURATION (MEASURED) ([facility]) 72.5 % (test code = 1455) CALCIUM, [id number] 00:17:00 Test Item Value Reference Range Interpretation Comments CALCIUM IONIZED (BEAKER) (test 1.19 mmol/L 1.12-1.27 code = 698) PH, BLOOD ([facility]) (test code = 7.36 1810) POCT-GLUCOSE [id number] 00:15:00 Test Item Value Reference Range Interpretation Comments POC-GLUCOSE METER 144 mg/dL 70-110 H TESTED AT [place] [address] ([facility]) (test code = [facility] 1538) [id number] POCT-GLUCOSE [id number] 22:43:00 Test Item Value Reference Range Interpretation Comments POC-GLUCOSE METER 98 mg/dL 70-110 TESTED AT [place] [address] ([facility]) (test code = [facility] [address] 1538) POCT-GLUCOSE [id number] 22:43:00 Test Item Value Reference Range Interpretation Comments POC-GLUCOSE METER 80 mg/dL 70-110 TESTED AT [place] [address] ([facility]) (test code = [facility] [address] 1538) VANCOMYCIN LEVEL, [id number] 20:20:00 Test Item Value Reference Range Interpretation Comments VANCOMYCIN TROUGH (AKER) (test 20.1 ug/mL 10.0-20.0 H code = 522) Before vanc [id number] 16:52:00 Test Item Value Reference Range Interpretation Comments PHOSPHORUS (BEAKER) (test code = 1.7 mg/dL 2.3-4.7 L 604) [id number] 16:52:00 Test Item Value Reference Range Interpretation Comments MAGNESIUM (BEAKER) (test code = 2.3 mg/dL 1.6-2.6 627) [id number] 16:39:00 Test Item Value Reference Range Interpretation Comments AMMONIA (BEAKER) (test code = 348) 32 mol/L 18-72 PH, [id number] 16:01:00 Test Item Value Reference Range Interpretation Comments PH ARTERIAL (BEAKER) (test code = 383) 7.42 7.35-7.45 GLUCOSE-STAT [id number] 16:01:00 Test Item Value Reference Range Interpretation Comments GLUCOSE RANDOM (BEAKER) (test code = 95 mg/dL 70-110 652) POTASSIUM-STAT [id number] 16:01:00 Test Item Value Reference Range Interpretation Comments POTASSIUM (BEAKER) (test code = 4.3 meq/L 3.6-5.5 379) CALCIUM, [id number] 16:01:00 Test Item Value Reference Range Interpretation Comments CALCIUM IONIZED (BEAKER) (test 1.28 mmol/L 1.12-1.27 H code = 698) PH, BLOOD (BEAKER) (test code = 7.42 1810) CALCIUM, [id number] 12:19:00 Test Item Value Reference Range Interpretation Comments CALCIUM IONIZED (BEAKER) (test 1.36 mmol/L 1.12-1.27 H code = 698) PH, BLOOD (BEAKER) (test code = 7.41 1810) GLUCOSE-STAT [id number] 12:17:00 Test Item Value Reference Range Interpretation Comments GLUCOSE RANDOM (BEAKER) (test code = 94 mg/dL 70-110 652) POTASSIUM-STAT [id number] 12:17:00 Test Item Value Reference Range Interpretation Comments POTASSIUM (BEAKER) (test code = 4.3 meq/L 3.6-5.5 379) [id number] 11:34:00 Test Item Value Reference Range Interpretation Comments MAGNESIUM (BEAKER) (test code = 2.1 mg/dL 1.6-2.6 627) BASIC METABOLIC [id number] 11:34:00 Test Item Value Reference Range Interpretation [...] DIALYSIS PATIEN TS. Specimen slightly ictericHEPATIC FUNCTION [id number] 11:34:00 Test Item Value Reference Range Interpretation [...] 6-55 H 347) Specimen slightly ictericBLOOD GAS, [id number] 09:44:00 Test Item Value Reference Range Interpretation [...] (test code = 1819) 100.0 % GLUCOSE-STAT [id number] 09:42:00 Test Item Value Reference Range Interpretation Comments GLUCOSE RANDOM (BEAKER) (test code = 95 mg/dL 70-110 652) POTASSIUM-STAT [id number] 09:42:00 Test Item Value Reference Range Interpretation Comments POTASSIUM (BEAKER) (test code = 4.5 meq/L 3.6-5.5 379) CALCIUM, [id number] 09:38:00 Test Item Value Reference Range Interpretation Comments CALCIUM IONIZED (BEAKER) (test 1.26 mmol/L 1.12-1.27 code = 698) PH, BLOOD (BEAKER) (test code = 7.41 1810) HEPARIN ASSAY - [id number] 08:44:00 Test Item Value Reference Range Interpretation Comments UNFRACTIONATED HEPARIN-ANTI 10A < u/ml 0.30-0.70 L (BEAKER) (test code = 1606) Recommendations for Monitoring Unfractionated Heparin Therapeutic Range: 0.3- 0.7 u/mL with continuous IV infusionGLUCOSE-STAT [id number] 06:41:00 Test Item Value Reference Range Interpretation [...] (test 0.0 % 0.0-5.0 code = 1414) [id number] 05:05:00 Test Item Value Reference Range Interpretation Comments PHOSPHORUS (BEAKER) (test code = 2.5 mg/dL 2.3-4.7 604) [id number] 05:05:00 Test Item Value Reference Range Interpretation Comments MAGNESIUM (BEAKER) (test code = 2.1 mg/dL 1.6-2.6 627) HEPATIC FUNCTION [id number] 05:05:00 Test Item Value Reference Range Interpretation [...] 1266 U/L 6-55 H 347) Specimen slightly [id number] 05:05:00 Test Item Value Reference Range Interpretation Comments CALCIUM (BEAKER) (test code = 697) 9.0 mg/dL 8.4-10.2 LACTATE DEHYDROGENASE (LDH)2018-01-14 05:05:00 Test Item Value Reference Range Interpretation Comments LACTATE DEHYDROGENASE (BEAKER) (test 667 U/L 125-220 H code = 635) PROTHROMBIN [id number] 05:05:00 Test Item Value Reference Range Interpretation Comments PROTIME (BEAKER) (test code = 15.2 seconds 11.7-14.7 H 759) INR (BEAKER) (test code = 370) 1.2 <=5.9 RECOMMENDED COUMADIN/WARFARIN INR THERAPY RANGESSTANDARD DOSE: 2.0 - 3.0 Includes: PROPHYLAXIS forvenous thrombosis, systemic embolization; TREATMENT for venous thrombosis and/or pulmonary embolus.HIGH RISK: Target INR is 2.5-3.5 for patients with mechanical heart valves.[id number] 05:05:00 Test Item Value Reference Range Interpretation Comments FIBRINOGEN LEVEL (BEAKER) (test 280 mg/dl 225-434 code = 658) RAD, CHEST, 1 VIEW, NON [id number] 04:57:00Reason for exam:- >impella/ECMO/intubationShould this be performed at the bedside?->YesFINAL REPORT CLINICAL INDICATION: Support lines. Comparison: 01/13/2018 The cardiomediastinal contours are stable. Cardiac opacities may reflect atelectasis but pneumonitis should be excluded clinically. There is no pneumothorax. Support lines are stable. Signed: Kellen Parra MDReport Verified Date/Time: 01/14/2018 04:57:02 Reading Location: [address] Reading Room LACTIC ACID, ARTERIAL, WHOLE [id number] 04:55:00 Test Item Value Reference Range Interpretation [...] H (BEAKER) (test code = 413) CALCIUM, [id number] 04:39:00 Test Item Value Reference Range Interpretation Comments CALCIUM IONIZED (BEAKER) (test 1.20 mmol/L 1.12-1.27 code = 698) PH, BLOOD (BEAKER) (test code = 7.37 1810) OXYGEN SATURATION, [id number] 04:38:00 Test Item Value Reference Range Interpretation Comments O2 SATURATION (MEASURED) (BEAKER) 75.3 % (test code = 1455) BLOOD GAS, [id number] 04:37:00 Test Item Value Reference Range Interpretation [...] (test code = 1819) 40.0 % GLUCOSE-STAT [id number] 04:37:00 Test Item Value Reference Range Interpretation Comments GLUCOSE RANDOM (BEAKER) (test code 154 mg/dL 70-110 H = 652) GLUCOSE-STAT [id number] 02:52:00 Test Item Value Reference Range Interpretation Comments GLUCOSE RANDOM (BEAKER) (test code 179 mg/dL 70-110 H = 652) GLUCOSE-STAT [id number] 01:26:00 Test Item Value Reference Range Interpretation Comments GLUCOSE RANDOM (BEAKER) (test code 195 mg/dL 70-110 H = 652) [id number] 00:08:00 Test Item Value Reference Range Interpretation Comments POTASSIUM (BEAKER) (test code = 4.2 meq/L 3.5-5.1 379) [id number] 00:08:00 Test Item Value Reference Range Interpretation Comments GLUCOSE RANDOM (BEAKER) (test code 237 mg/dL 70-105 H = 652) CBC W/PLT COUNT & AUTO [id number] 22:28:00 Test Item Value Reference Range Interpretation [...] = 413) RAD, CHEST, 1 VIEW, NON [id number] 21:50:00Reason for exam:->chest tubes/intubationShould this be performed [...] MDReport Verified Date/Time: 01/13/2018 21:50:50 Reading Location: [address] Consult Reading Room THROMBOELASTOGRAPH (TEG)2018-01-13 21:45:00 [...] % 0.0-5.0 code = 1414) BASIC METABOLIC [id number] 21:35:00 Test Item Value Reference Range Interpretation [...] APPLICABLE FOR DIALYSIS PATIEN TS. Specimen slightly [id number] 21:06:00 Test Item Value Reference Range Interpretation Comments PHOSPHORUS (BEAKER) (test code = 3.7 mg/dL 2.3-4.7 604) [id number] 21:06:00 Test Item Value Reference Range Interpretation Comments MAGNESIUM (BEAKER) (test code = 2.0 mg/dL 1.6-2.6 627) LACTIC ACID, ARTERIAL, WHOLE [id number] 21:06:00 Test Item Value Reference Range Interpretation Comments LACTATE BLOOD ARTERIAL (2) 1.8 mmol/L 0.5-2.2 (BEAKER) (test code = 2874) Effective 01/04/2016: Units/Reference Range ChangeNew: 0.5-2.2 mmol/L Previous: 5-20 mg/dLSpecimen slightly [id number] 21:01:00 Test Item Value Reference Range Interpretation Comments PARTIAL THROMBOPLASTIN TIME 35.1 seconds 22.5-36.0 (BEAKER) (test code = 760) [id number] 21:00:00 Test Item Value Reference Range Interpretation Comments FIBRINOGEN LEVEL (BEAKER) (test 253 mg/dl 225-434 code = 658) PROTHROMBIN [id number] 20:59:00 Test Item Value Reference Range Interpretation Comments PROTIME (BEAKER) (test code = 16.4 seconds 11.7-14.7 H 759) INR (BEAKER) (test code = 370) 1.3 <=5.9 RECOMMENDED COUMADIN/WARFARIN INR THERAPY RANGESSTANDARD DOSE: 2.0 - 3.0 Includes: PROPHYLAXIS forvenous thrombosis, systemic embolization; TREATMENT for venous thrombosis and/or pulmonary embolus.HIGH RISK: Target INR is 2.5-3.5 for patients with mechanical heart valves.BLOOD GAS, [id number] 20:47:00 Test Item Value Reference Range Interpretation [...] (test code = 1819) 40.0 % GLUCOSE-STAT [id number] 20:47:00 Test Item Value Reference Range Interpretation Comments GLUCOSE RANDOM (BEAKER) (test code 235 mg/dL 70-110 H = 652) CALCIUM, [id number] 20:47:00 Test Item Value Reference Range Interpretation Comments CALCIUM IONIZED (BEAKER) (test 0.97 mmol/L 1.12-1.27 L code = 698) PH, BLOOD (BEAKER) (test code = 7.39 1810) HGB/HCT (H&H) - STAT [id number] 20:46:00 Test Item Value Reference Range Interpretation Comments HEMOGLOBIN (BEAKER) (test code = 7.7 g/dL 13.0-16.8 L 410) HEMATOCRIT (BEAKER) (test code = 23.0 % 40.0-50.0 L 411) POTASSIUM-STAT [id number] 20:46:00 Test Item Value Reference Range Interpretation Comments POTASSIUM (BEAKER) (test code = 3.4 meq/L 3.6-5.5 L 379) SODIUM NA-STAT [id number] 20:46:00 Test Item Value Reference Range Interpretation Comments SODIUM (BEAKER) (test code = 381) 133 meq/L 135-148 L OXYGEN SATURATION, [id number] 20:42:00 Test Item Value Reference Range Interpretation Comments O2 SATURATION (MEASURED) (BEAKER) 74.1 % (test code = 1455) BLOOD GAS, [id number] 18:58:00 Test Item Value Reference Range Interpretation [...] code = 1819) 100.0 % SODIUM NA-STAT [id number] 18:58:00 Test Item Value Reference Range Interpretation Comments SODIUM (BEAKER) (test code = 381) 131 meq/L 135-148 L POTASSIUM-STAT [id number] 18:58:00 Test Item Value Reference Range Interpretation Comments POTASSIUM (BEAKER) (test code = 3.4 meq/L 3.6-5.5 L 379) GLUCOSE-STAT [id number] 18:58:00 Test Item Value Reference Range Interpretation Comments GLUCOSE RANDOM (BEAKER) (test code 214 mg/dL 70-110 H = 652) HGB/HCT (H&H) - STAT [id number] 18:58:00 Test Item Value Reference Range Interpretation [...] % 0.0-5.0 code = 1414) BLOOD GAS, [id number] 18:11:00 Test Item Value Reference Range Interpretation [...] code = 1819) 97.0 % SODIUM NA-STAT [id number] 18:11:00 Test Item Value Reference Range Interpretation Comments SODIUM (BEAKER) (test code = 381) 132 meq/L 135-148 L GLUCOSE-STAT [id number] 18:11:00 Test Item Value Reference Range Interpretation Comments GLUCOSE RANDOM (BEAKER) (test code 200 mg/dL 70-110 H = 652) HGB/HCT (H&H) - STAT [id number] 18:11:00 Test Item Value Reference Range Interpretation Comments HEMOGLOBIN (BEAKER) (test code = 8.2 g/dL 13.0-16.8 L 410) HEMATOCRIT (BEAKER) (test code = 24.0 % 40.0-50.0 L 411) POTASSIUM-STAT [id number] 18:07:00 Test Item Value Reference Range Interpretation Comments POTASSIUM (BEAKER) (test code = 3.5 meq/L 3.6-5.5 L 379) [id number] 16:37:00 Test Item Value Reference Range Interpretation Comments PHOSPHORUS (BEAKER) (test code = 2.5 mg/dL 2.3-4.7 604) [id number] 16:37:00 Test Item Value Reference Range Interpretation Comments MAGNESIUM (BEAKER) (test code = 2.1 mg/dL 1.6-2.6 627) [id number] 16:29:00 Test Item Value Reference Range Interpretation [...] for patients with mechanical heart valves.BLOOD GAS, [id number] 16:16:00 Test Item Value Reference Range Interpretation [...] (test code = 1819) 40.0 % CALCIUM, [id number] 16:14:00 Test Item Value Reference Range Interpretation Comments CALCIUM IONIZED (BEAKER) (test 1.09 mmol/L 1.12-1.27 L code = 698) PH, BLOOD (BEAKER) (test code = 7.64 1810) GLUCOSE-STAT [id number] 16:12:00 Test Item Value Reference Range Interpretation Comments GLUCOSE RANDOM (BEAKER) (test code 182 mg/dL 70-110 H = 652) CALCIUM, [id number] 12:53:00 Test Item Value Reference Range Interpretation Comments CALCIUM IONIZED (BEAKER) (test 1.12 mmol/L 1.12-1.27 code = 698) PH, BLOOD (BEAKER) (test code = 7.51 1810) BLOOD GAS, [id number] 12:53:00 Test Item Value Reference Range Interpretation [...] 1819) 40.0 % HGB/HCT (H&H) - STAT [id number] 12:53:00 Test Item Value Reference Range Interpretation Comments HEMOGLOBIN (BEAKER) (test code = 8.3 g/dL 13.0-16.8 L 410) HEMATOCRIT (BEAKER) (test code = 24.0 % 40.0-50.0 L 411) GLUCOSE-STAT [id number] 12:53:00 Test Item Value Reference Range Interpretation Comments GLUCOSE RANDOM (BEAKER) (test code 185 mg/dL 70-110 H = 652) POTASSIUM-STAT [id number] 12:52:00 Test Item Value Reference Range Interpretation Comments POTASSIUM (BEAKER) (test code = 3.7 meq/L 3.6-5.5 379) CBC W/PLT COUNT & AUTO [id number] 11:04:00 Test Item Value Reference Range Interpretation [...] 0-0 H (test code = 413) POTASSIUM-STAT [id number] 10:49:00 Test Item Value Reference Range Interpretation Comments POTASSIUM (BEAKER) (test code = 3.8 meq/L 3.6-5.5 379) HEPARIN ASSAY - [id number] 09:55:00 Test Item Value Reference Range Interpretation Comments UNFRACTIONATED HEPARIN-ANTI 10A 0.14 u/ml 0.30-0.70 L (BEAKER) (test code = 1606) Recommendations for Monitoring Unfractionated Heparin Therapeutic Range: 0.3- 0.7 u/mL with continuous IV [id number] 09:54:00 Test Item Value Reference Range Interpretation Comments PARTIAL THROMBOPLASTIN TIME 57.6 seconds 22.5-36.0 H (BEAKER) (test code = 760) BLOOD GAS, [id number] 09:33:00 Test Item Value Reference Range Interpretation [...] (test code = 1819) 40.0 % GLUCOSE-STAT [id number] 09:33:00 Test Item Value Reference Range Interpretation Comments GLUCOSE RANDOM (BEAKER) (test code 192 mg/dL 70-110 H = 652) GLUCOSE-STAT [id number] 09:33:00 Test Item Value Reference Range Interpretation Comments GLUCOSE RANDOM (BEAKER) (test code 192 mg/dL 70-110 H = 652) CALCIUM, [id number] 09:32:00 Test Item Value Reference Range Interpretation Comments CALCIUM IONIZED (BEAKER) (test 1.15 mmol/L 1.12-1.27 code = 698) PH, BLOOD (BEAKER) (test code = 7.51 1810) BLOOD GAS, [id number] 07:23:00 Test Item Value Reference Range Interpretation [...] % 0.0-5.0 code = 1414) BLOOD GAS, [id number] 06:13:00 Test Item Value Reference Range Interpretation [...] code = 1819) 40.0 % BLOOD GAS, [id number] 05:13:00 Test Item Value Reference Range Interpretation [...] (BEAKER) (test code = 1819) 100.0 % [id number] 04:41:00 Test Item Value Reference Range Interpretation Comments PARTIAL THROMBOPLASTIN TIME 61.3 seconds 22.5-36.0 H (BEAKER) (test code = 760) RAD, CHEST, 1 VIEW, NON [id number] 04:38:00Reason for exam:- >impella/ECMO/intubationShould this be performed at the bedside?->YesFINAL REPORT CLINICAL INDICATION: Support lines. Comparison: 01/12/2018 The cardiomediastinal contours are stable. Central pulmonary vascular prominence and bilateral parenchymalopacities are previous. There is no pneumothorax. Support lines are stable. Signed: Kellen Parra MDReport Verified Date/Time: 01/13/2018 04:38:41 Reading Location: [address] Reading Room HEPATIC FUNCTION [id number] 04:25:00 Test Item Value Reference Range Interpretation [...] 2232 U/L 6-55 H 347) Specimen slightly [id number] 04:19:00 Test Item Value Reference Range Interpretation Comments PHOSPHORUS (BEAKER) (test code = 4.1 mg/dL 2.3-4.7 604) [id number] 04:19:00 Test Item Value Reference Range Interpretation Comments MAGNESIUM (BEAKER) (test code = 1.9 mg/dL 1.6-2.6 627) [id number] 04:19:00 Test Item Value Reference Range Interpretation Comments CALCIUM (BEAKER) (test code = 697) 8.6 mg/dL 8.4-10.2 BASIC METABOLIC [id number] 04:19:00 Test Item Value Reference Range Interpretation [...] 1658 U/L 125-220 H code = 635) [id number] 04:16:00 Test Item Value Reference Range Interpretation Comments FIBRINOGEN LEVEL (BEAKER) (test 299 mg/dl 225-434 code = 658) LACTIC ACID, ARTERIAL, WHOLE [id number] 04:16:00 Test Item Value Reference Range Interpretation Comments LACTATE BLOOD ARTERIAL (2) 0.8 mmol/L 0.5-2.2 (BEAKER) (test code = 2874) Effective 01/04/2016: Units/Reference Range ChangeNew: 0.5-2.2 mmol/L Previous: 5-20 mg/dLSpecimen slightly ictericPROTHROMBIN [id number] 04:15:00 Test Item Value Reference Range Interpretation Comments PROTIME (BEAKER) (test code = 15.8 seconds 11.7-14.7 H 759) INR (BEAKER) (test code = 370) 1.3 <=5.9 RECOMMENDED COUMADIN/WARFARIN INR THERAPY RANGESSTANDARD DOSE: 2.0 - 3.0 Includes: PROPHYLAXIS forvenous thrombosis, systemic embolization; TREATMENT for venous thrombosis and/or pulmonary embolus.HIGH RISK: Target INR is 2.5-3.5 for patients with mechanical heart valves.CALCIUM, [id number] 04:04:00 Test Item Value Reference Range Interpretation Comments CALCIUM IONIZED (BEAKER) (test 1.15 mmol/L 1.12-1.27 code = 698) PH, BLOOD (BEAKER) (test code = 7.33 1810) BLOOD GAS, [id number] 04:03:00 Test Item Value Reference Range Interpretation [...] (test code = 1819) 40.0 % PLATELET [id number] 03:58:00 Test Item Value Reference Range Interpretation Comments PLATELET COUNT (BEAKER) (test code 89 K/CU MM 150-450 L = 756) OXYGEN SATURATION, [id number] 03:57:00 Test Item Value Reference Range Interpretation Comments O2 SATURATION (MEASURED) (BEAKER) 79.4 % (test code = 1455) BLOOD GAS, [id number] 01:19:00 Test Item Value Reference Range Interpretation [...] (test code = 1819) 40.0 % GLUCOSE-STAT [id number] 01:19:00 Test Item Value Reference Range Interpretation Comments GLUCOSE RANDOM (BEAKER) (test code 177 mg/dL 70-110 H = 652) POTASSIUM-STAT [id number] 01:18:00 Test Item Value Reference Range Interpretation Comments POTASSIUM (BEAKER) (test code = 4.0 meq/L 3.6-5.5 379) CALCIUM, [id number] 01:17:00 Test Item Value Reference Range Interpretation [...] (test 0.0 % 0.0-5.0 code = 1414) [id number] 20:36:00 Test Item Value Reference Range Interpretation Comments POTASSIUM (BEAKER) (test code = 4.2 meq/L 3.5-5.1 379) [id number] 20:36:00 Test Item Value Reference Range Interpretation Comments MAGNESIUM (BEAKER) (test code = 1.8 mg/dL 1.6-2.6 627) [id number] 20:36:00 Test Item Value Reference Range Interpretation Comments PHOSPHORUS (BEAKER) (test code = 3.5 mg/dL 2.3-4.7 604) LACTIC ACID, ARTERIAL, WHOLE [id number] 20:33:00 Test Item Value Reference Range Interpretation Comments LACTATE BLOOD ARTERIAL (2) 0.8 mmol/L 0.5-2.2 (BEAKER) (test code = 2874) Effective 01/04/2016: Units/Reference Range ChangeNew: 0.5-2.2 mmol/L Previous: 5-20 mg/dLSpecimen slightly ictericBLOOD GAS, [id number] 20:20:00 Test Item Value Reference Range Interpretation [...] (test code = 1819) 40.0 % GLUCOSE-STAT [id number] 20:20:00 Test Item Value Reference Range Interpretation Comments GLUCOSE RANDOM (BEAKER) (test code 180 mg/dL 70-110 H = 652) [id number] 18:34:00 Test Item Value Reference Range Interpretation Comments GLUCOSE RANDOM (BEAKER) (test code 218 mg/dL 70-105 H = 652) BLOOD GAS, [id number] 18:18:00 Test Item Value Reference Range Interpretation [...] (BEAKER) (test code = 1819) 40.0 % [id number] 17:12:00 Test Item Value Reference Range Interpretation Comments PARTIAL THROMBOPLASTIN TIME 54.1 seconds 22.5-36.0 H (BEAKER) (test code = 760) [id number] 17:12:00 Test Item Value Reference Range Interpretation Comments FIBRINOGEN LEVEL (BEAKER) (test 285 mg/dl 225-434 code = 658) PROTHROMBIN [id number] 17:10:00 Test Item Value Reference Range Interpretation [...] ChangeNew: 0.5-2.2 mmol/L Previous: 5-20 mg/dLSpecimen slightly [id number] 17:01:00 Test Item Value Reference Range Interpretation Comments POTASSIUM (BEAKER) (test code = 4.5 meq/L 3.5-5.1 379) [id number] 17:01:00 Test Item Value Reference Range Interpretation Comments GLUCOSE RANDOM (BEAKER) (test code 239 mg/dL 70-105 H = 652) PLATELET [id number] 16:46:00 Test Item Value Reference Range Interpretation Comments PLATELET COUNT (BEAKER) (test code 86 K/CU MM 150-450 L = 756) BLOOD GAS, [id number] 16:36:00 Test Item Value Reference Range Interpretation [...] (test 37.0 C code = 1818) CALCIUM, [id number] 16:36:00 Test Item Value Reference Range Interpretation Comments CALCIUM IONIZED (BEAKER) (test 1.08 mmol/L 1.12-1.27 L code = 698) PH, BLOOD (BEAKER) (test code = 7.46 1810) [id number] 15:00:00 Test Item Value Reference Range Interpretation Comments POTASSIUM (BEAKER) (test code = 4.7 meq/L 3.5-5.1 379) [id number] 15:00:00 Test Item Value Reference Range Interpretation Comments GLUCOSE RANDOM (BEAKER) (test code 210 mg/dL 70-105 H = 652) BLOOD GAS, [id number] 14:42:00 Test Item Value Reference Range Interpretation [...] 40.0 % RAD, CHEST, 1 VIEW, NON [id number] 14:41:00Reason for exam:->chest tube insertionFINAL REPORT CHEST [...] Wilkerson Verified Date/Time: 01/12/2018 14:41:22 Reading Location: [facility] B1 C013T Transitional Reading Room MBOELASTOGRAPH (TEG)2018-01-12 [...] (test 0.0 % 0.0-5.0 code = 1414) [id number] 11:23:00 Test Item Value Reference Range Interpretation [...] exclusion of thrombosis is within 95-100% range. [id number] 10:10:00 Test Item Value Reference Range Interpretation Comments MAGNESIUM (BEAKER) 2.1 mg/dL 1.6-2.6 Specimen slightly (test code = 627) hemolyzed [id number] 10:10:00 Test Item Value Reference Range Interpretation Comments PHOSPHORUS (BEAKER) 4.2 mg/dL 2.3-4.7 Specimen slightly (test code = 604) hemolyzed [id number] 10:10:00 Test Item Value Reference Range Interpretation Comments POTASSIUM (BEAKER) 5.0 meq/L 3.5-5.1 Specimen slightly (test code = 379) hemolyzed [id number] 10:10:00 Test Item Value Reference Range Interpretation Comments GLUCOSE RANDOM (BEAKER) (test code 204 mg/dL 70-105 H = 652) [id number] 10:07:00 Test Item Value Reference Range Interpretation Comments FIBRINOGEN LEVEL (BEAKER) (test 251 mg/dl 225-434 code = 658) ANTITHROMBIN [id number] 10:04:00 Test Item Value Reference Range Interpretation Comments ANTITHROMBIN III ACTIVITY (BEAKER) 46.0 % 80.0-120.0 L (test code = 711) [id number] 09:58:00 Test Item Value Reference Range Interpretation Comments PARTIAL THROMBOPLASTIN TIME 59.8 seconds 22.5-36.0 H (BEAKER) (test code = 760) PROTHROMBIN [id number] 09:57:00 Test Item Value Reference Range Interpretation Comments PROTIME (BEAKER) (test code = 19.3 seconds 11.7-14.7 H 759) INR (BEAKER) (test code = 370) 1.6 <=5.9 RECOMMENDED COUMADIN/WARFARIN INR THERAPY RANGESSTANDARD DOSE: 2.0 - 3.0 Includes: PROPHYLAXIS forvenous thrombosis, systemic embolization; TREATMENT for venous thrombosis and/or pulmonary embolus.HIGH RISK: Target INR is 2.5-3.5 for patients with mechanical heart valves.PLATELET [id number] 09:49:00 Test Item Value Reference Range Interpretation Comments PLATELET COUNT (BEAKER) (test code 94 K/CU MM 150-450 L = 756) BLOOD GAS, [id number] 09:47:00 Test Item Value Reference Range Interpretation [...] (test code = 1819) 40.0 % CALCIUM, [id number] 09:46:00 Test Item Value Reference Range Interpretation Comments CALCIUM IONIZED (BEAKER) (test 1.12 mmol/L 1.12-1.27 code = 698) PH, BLOOD (BEAKER) (test code = 7.47 1810) HEPARIN ASSAY - [id number] 08:21:00 Test Item Value Reference Range Interpretation Comments UNFRACTIONATED HEPARIN-ANTI 10A < u/ml 0.30-0.70 L (BEAKER) (test code = 1606) Recommendations for Monitoring Unfractionated Heparin Therapeutic Range: 0.3- 0.7 u/mL with continuous IV infusionLACTATE DEHYDROGENASE (LDH)2018-01-12 07:40:00 Test Item Value Reference Range Interpretation Comments LACTATE DEHYDROGENASE (BEAKER) (test 3247 U/L 125-220 H code = 635) [id number] 07:38:00 Test Item Value Reference Range Interpretation Comments MAGNESIUM (BEAKER) (test code = 2.3 mg/dL 1.6-2.6 627) [id number] 07:38:00 Test Item Value Reference Range Interpretation Comments GLUCOSE RANDOM (BEAKER) (test code 217 mg/dL 70-105 H = 652) LACTIC ACID, ARTERIAL, WHOLE [id number] 07:27:00 Test Item Value Reference Range Interpretation Comments LACTATE BLOOD ARTERIAL (2) 1.4 mmol/L 0.5-2.2 (BEAKER) (test code = 2874) Effective 01/04/2016: Units/Reference Range ChangeNew: 0.5-2.2 mmol/L Previous: 5-20 mg/dLSpecimen slightly ictericGLUCOSE-STAT [id number] 06:55:00 Test Item Value Reference Range Interpretation Comments GLUCOSE RANDOM (BEAKER) (test code 212 mg/dL 70-110 H = 652) BLOOD GAS, [id number] 06:55:00 Test Item Value Reference Range Interpretation [...] (test code = 1819) 40.0 % POTASSIUM-STAT [id number] 06:52:00 Test Item Value Reference Range Interpretation Comments POTASSIUM (BEAKER) (test code = 4.8 meq/L 3.6-5.5 379) BLOOD GAS, [id number] 06:43:00 Test Item Value Reference Range Interpretation [...] 100.0 % RAD, CHEST, 1 VIEW, NON [id number] 06:14:00Reason for exam:- >impella/ECMO/intubationShould this be performed [...] Taylor Verified Date/Time: 01/12/2018 06:14:29 Reading Location: [facility] Transitional Reading Room LACTATE DEHYDROGENASE (LDH)2018-01-12 05:03:00 Test Item Value Reference Range Interpretation Comments LACTATE DEHYDROGENASE (BEAKER) (test 3014 U/L 125-220 H code = 635) HEPATIC FUNCTION [id number] 05:03:00 Test Item Value Reference Range Interpretation [...] 1544 U/L 6-55 H 347) Specimen slightly [id number] 05:01:00 Test Item Value Reference Range Interpretation Comments PHOSPHORUS (BEAKER) (test code = 5.0 mg/dL 2.3-4.7 H 604) [id number] 05:01:00 Test Item Value Reference Range Interpretation Comments MAGNESIUM (BEAKER) (test code = 2.1 mg/dL 1.6-2.6 627) [id number] 05:01:00 Test Item Value Reference Range Interpretation Comments CALCIUM (BEAKER) (test code = 697) 8.5 mg/dL 8.4-10.2 BASIC METABOLIC [id number] 05:01:00 Test Item Value Reference Range Interpretation [...] TS. Specimen slightly ictericLACTIC ACID, ARTERIAL, WHOLE [id number] 04:42:00 Test Item Value Reference Range Interpretation Comments LACTATE BLOOD ARTERIAL (2) 1.5 mmol/L 0.5-2.2 (BEAKER) (test code = 2874) Effective 01/04/2016: Units/Reference Range ChangeNew: 0.5-2.2 mmol/L Previous: 5-20 mg/dLSpecimen slightly [id number] 04:38:00 Test Item Value Reference Range Interpretation Comments FIBRINOGEN LEVEL (BEAKER) (test 252 mg/dl 225-434 code = 658) [id number] 04:38:00 Test Item Value Reference Range Interpretation Comments PARTIAL THROMBOPLASTIN TIME 54.6 seconds 22.5-36.0 H (BEAKER) (test code = 760) CBC W/PLT COUNT & AUTO [id number] 04:37:00 Test Item Value Reference Range Interpretation [...] PERCENT (BEAKER) (test code = 2801) PROTHROMBIN [id number] 04:37:00 Test Item Value Reference Range Interpretation Comments PROTIME (BEAKER) (test code = 19.9 seconds 11.7-14.7 H 759) INR (BEAKER) (test code = 370) 1.7 <=5.9 RECOMMENDED COUMADIN/WARFARIN INR THERAPY RANGESSTANDARD DOSE: 2.0 - 3.0 Includes: PROPHYLAXIS forvenous thrombosis, systemic embolization; TREATMENT for venous thrombosis and/or pulmonary embolus.HIGH RISK: Target INR is 2.5-3.5 for patients with mechanical heart valves.CALCIUM, [id number] 04:31:00 Test Item Value Reference Range Interpretation Comments CALCIUM IONIZED (BEAKER) (test 1.12 mmol/L 1.12-1.27 code = 698) PH, BLOOD (BEAKER) (test code = 7.42 1810) BLOOD GAS, [id number] 04:30:00 Test Item Value Reference Range Interpretation [...] (test code = 1819) 40.0 % PLATELET [id number] 04:23:00 Test Item Value Reference Range Interpretation Comments PLATELET COUNT (BEAKER) (test 110 K/CU MM 150-450 L code = 756) OXYGEN SATURATION, [id number] 04:14:00 Test Item Value Reference Range Interpretation Comments O2 SATURATION (MEASURED) (BEAKER) 79.7 % (test code = 1455) [id number] 02:54:00 Test Item Value Reference Range Interpretation Comments PARTIAL THROMBOPLASTIN TIME 134.3 seconds 22.5-36.0 H (BEAKER) (test code = 760) [id number] 02:25:00 Test Item Value Reference Range Interpretation Comments PARTIAL THROMBOPLASTIN TIME 94.0 seconds 22.5-36.0 H (BEAKER) (test code = 760) BLOOD GAS, [id number] 01:56:00 Test Item Value Reference Range Interpretation [...] (test code = 1819) 40.0 % GLUCOSE-STAT [id number] 01:53:00 Test Item Value Reference Range Interpretation Comments GLUCOSE RANDOM (BEAKER) (test code 201 mg/dL 70-110 H = 652) POTASSIUM-STAT [id number] 01:52:00 Test Item Value Reference Range Interpretation Comments POTASSIUM (BEAKER) (test code = 4.9 meq/L 3.6-5.5 379) LACTIC ACID, ARTERIAL, WHOLE [id number] 01:18:00 Test Item Value Reference Range Interpretation Comments LACTATE BLOOD ARTERIAL (2) 2.0 mmol/L 0.5-2.2 (BEAKER) (test code = 2874) Effective 01/04/2016: Units/Reference Range ChangeNew: 0.5-2.2 mmol/L Previous: 5-20 mg/dLSpecimen slightly [id number] 01:18:00 Test Item Value Reference Range Interpretation Comments POTASSIUM (BEAKER) (test code = 5.1 meq/L 3.5-5.1 379) [id number] 01:18:00 Test Item Value Reference Range Interpretation Comments GLUCOSE RANDOM (BEAKER) (test code 194 mg/dL 70-105 H = 652) PROTHROMBIN [id number] 01:15:00 Test Item Value Reference Range Interpretation Comments PROTIME (BEAKER) (test code = 21.2 seconds 11.7-14.7 H 759) INR (BEAKER) (test code = 370) 1.8 <=5.9 RECOMMENDED COUMADIN/WARFARIN INR THERAPY RANGESSTANDARD DOSE: 2.0 - 3.0 Includes: PROPHYLAXIS forvenous thrombosis, systemic embolization; TREATMENT for venous thrombosis and/or pulmonary embolus.HIGH RISK: Target INR is 2.5-3.5 for patients with mechanical heart valves.[id number] 01:15:00 Test Item Value Reference Range Interpretation Comments FIBRINOGEN LEVEL (BEAKER) (test 233 mg/dl 225-434 code = 658) PLATELET [id number] 01:01:00 Test Item Value Reference Range Interpretation Comments PLATELET COUNT (BEAKER) (test code 84 K/CU MM 150-450 L = 756) BLOOD GAS, [id number] 01:00:00 Test Item Value Reference Range Interpretation [...] (test code = 1819) 40.0 % CALCIUM, [id number] 01:00:00 Test Item Value Reference Range Interpretation [...] 0.0-5.0 (BEAKER) (test code = 1414) GLUCOSE-STAT [id number] 23:53:00 Test Item Value Reference Range Interpretation Comments GLUCOSE RANDOM (BEAKER) (test code 182 mg/dL 70-110 H = 652) BLOOD GAS, [id number] 23:52:00 Test Item Value Reference Range Interpretation [...] FIO2 (BEAKER) (test code = 1819) 40 [id number] 23:05:00 Test Item Value Reference Range Interpretation Comments PARTIAL THROMBOPLASTIN TIME > seconds 22.5-36.0 HH (BEAKER) (test code = 760) BLOOD GAS, [id number] 23:01:00 Test Item Value Reference Range Interpretation [...] (BEAKER) (test code = 1819) 100.0 % [id number] 22:46:00 Test Item Value Reference Range Interpretation Comments FIBRINOGEN LEVEL (BEAKER) (test 223 mg/dl 225-434 L code = 658) PROTHROMBIN [id number] 22:45:00 Test Item Value Reference Range Interpretation Comments PROTIME (BEAKER) (test code = 23.0 seconds 11.7-14.7 H 759) INR (BEAKER) (test code = 370) 2.0 <=5.9 RECOMMENDED COUMADIN/WARFARIN INR THERAPY RANGESSTANDARD DOSE: 2.0 - 3.0 Includes: PROPHYLAXIS forvenous thrombosis, systemic embolization; TREATMENT for venous thrombosis and/or pulmonary embolus.HIGH RISK: Target INR is 2.5-3.5 for patients with mechanical heart valves.BLOOD GAS, [id number] 22:22:00 Test Item Value Reference Range Interpretation [...] (test code = 1819) 40.0 % CALCIUM, [id number] 22:21:00 Test Item Value Reference Range Interpretation Comments CALCIUM IONIZED (BEAKER) (test 1.05 mmol/L 1.12-1.27 L code = 698) PH, BLOOD (BEAKER) (test code = 7.67 1810) PLATELET [id number] 22:21:00 Test Item Value Reference Range Interpretation Comments PLATELET COUNT (BEAKER) (test code 71 K/CU MM 150-450 L = 756) GLUCOSE-STAT [id number] 22:20:00 Test Item Value Reference Range Interpretation Comments GLUCOSE RANDOM (BEAKER) (test code 189 mg/dL 70-110 H = 652) POTASSIUM-STAT [id number] 22:19:00 Test Item Value Reference Range Interpretation [...] 2133 U/L 125-220 H code = 635) [id number] 20:55:00 Test Item Value Reference Range Interpretation Comments POTASSIUM (BEAKER) (test code = 5.4 meq/L 3.5-5.1 H 379) [id number] 20:55:00 Test Item Value Reference Range Interpretation Comments MAGNESIUM (BEAKER) (test code = 1.6 mg/dL 1.6-2.6 627) [id number] 20:55:00 Test Item Value Reference Range Interpretation Comments PHOSPHORUS (BEAKER) (test code = 2.9 mg/dL 2.3-4.7 604) GLUCOSE-STAT [id number] 20:31:00 Test Item Value Reference Range Interpretation Comments GLUCOSE RANDOM (BEAKER) (test code 166 mg/dL 70-110 H = 652) POTASSIUM-STAT [id number] 20:30:00 Test Item Value Reference Range Interpretation Comments POTASSIUM (BEAKER) (test code = 5.2 meq/L 3.6-5.5 379) BLOOD GAS, [id number] 20:30:00 Test Item Value Reference Range Interpretation [...] code = 1819) 40.0 % OXYGEN SATURATION, [id number] 18:46:00 Test Item Value Reference Range Interpretation Comments O2 SATURATION (MEASURED) (BEAKER) 81.5 % (test code = 1455) RAD, CHEST, 1 VIEW, NON [id number] 18:27:00Reason for exam:->impella/ECMO placementShould this be performed [...] Xieeport Verified Date/Time: 01/11/2018 18:27:33 Reading Location: [facility] B1 C013X Ortho Consult Reading Room [id number] 18:11:00 Test Item Value Reference Range Interpretation Comments PARTIAL THROMBOPLASTIN TIME > seconds 22.5-36.0 HH (BEAKER) (test code = 760) LACTATE DEHYDROGENASE (LDH)2018-01-11 18:09:00 Test Item Value Reference Range Interpretation Comments LACTATE DEHYDROGENASE 1590 U/L 125-220 H Specim en slightly (BEAKER) (test code = hemoly zed 635) BASIC METABOLIC [id number] 18:08:00 Test Item Value Reference Range Interpretation [...] S NOT APPLICABLE FOR DIALYSIS PATIEN TS. [id number] 17:54:00 Test Item Value Reference Range Interpretation Comments MAGNESIUM (BEAKER) 1.8 mg/dL 1.6-2.6 Specimen slightly (test code = 627) hemolyzed [id number] 17:54:00 Test Item Value Reference Range Interpretation Comments PHOSPHORUS (BEAKER) 4.6 mg/dL 2.3-4.7 Specimen slightly (test code = 604) hemolyzed LACTIC ACID, ARTERIAL, WHOLE [id number] 17:53:00 Test Item Value Reference Range Interpretation Comments LACTATE BLOOD 10.8 mmol/L 0.5-2.2 H Specimen sligh tly ARTERIAL (2) (BEAKER) hemoly zed (test code = 2874) Effective 01/04/2016: Units/Reference Range ChangeNew: 0.5-2.2 mmol/L Previous: 5-20 mg/fEC-[id number] 17:46:00 Test Item Value Reference Range Interpretation [...] exclusion of thrombosis is within 95-100% range. [id number] 17:46:00 Test Item Value Reference Range Interpretation Comments FIBRINOGEN LEVEL (BEAKER) (test 201 mg/dl 225-434 L code = 658) PROTHROMBIN [id number] 17:45:00 Test Item Value Reference Range Interpretation Comments PROTIME (BEAKER) (test code = 24.4 seconds 11.7-14.7 H 759) INR (BEAKER) (test code = 370) 2.2 <=5.9 RECOMMENDED COUMADIN/WARFARIN INR THERAPY RANGESSTANDARD DOSE: 2.0 - 3.0 Includes: PROPHYLAXIS forvenous thrombosis, systemic embolization; TREATMENT for venous thrombosis and/or pulmonary embolus.HIGH RISK: Target INR is 2.5-3.5 for patients with mechanical heart valves.BLOOD GAS, [id number] 17:44:00 Test Item Value Reference Range Interpretation [...] code = 1819) 40.0 % SODIUM NA-STAT [id number] 17:44:00 Test Item Value Reference Range Interpretation Comments SODIUM (BEAKER) (test code = 381) 134 meq/L 135-148 L POTASSIUM-STAT [id number] 17:44:00 Test Item Value Reference Range Interpretation Comments POTASSIUM (BEAKER) (test code = 6.2 meq/L 3.6-5.5 HH 379) GLUCOSE-STAT [id number] 17:44:00 Test Item Value Reference Range Interpretation Comments GLUCOSE RANDOM (BEAKER) (test code 147 mg/dL 70-110 H = 652) HGB/HCT (H&H) - STAT [id number] 17:44:00 Test Item Value Reference Range Interpretation Comments HEMOGLOBIN (BEAKER) (test code = 9.9 g/dL 13.0-16.8 L 410) HEMATOCRIT (BEAKER) (test code = 29.0 % 40.0-50.0 L 411) CALCIUM, [id number] 17:41:00 Test Item Value Reference Range Interpretation Comments CALCIUM IONIZED (BEAKER) (test 1.03 mmol/L 1.12-1.27 L code = 698) PH, BLOOD (BEAKER) (test code = 7.52 1810) OXYGEN SATURATION, [id number] 17:39:00 Test Item Value Reference Range Interpretation Comments O2 SATURATION (MEASURED) (BEAKER) 84.5 % (test code = 1455) CBC W/PLT COUNT & AUTO [id number] 17:37:00 Test Item Value Reference Range Interpretation [...] 0-1 PERCENT (BEAKER) (test code = 2801) [id number] 16:35:00 Test Item Value Reference Range Interpretation Comments ACTIVATED CLOTTING TIME 230 sec TEST ED AT [facility] [address] (BEAKER) (test code = [place] [address]) [address] [id number] 16:35:00 Test Item Value Reference Range Interpretation Comments ACTIVATED CLOTTING TIME 191 sec TEST ED AT [facility] 67[address] (BEAKER) (test code = [place] [address]) [address] BLOOD GAS, [id number] 16:20:00 Test Item Value Reference Range Interpretation [...] (test code = 1819) 100 BLOOD GAS, [id number] 16:19:00 Test Item Value Reference Range Interpretation [...] drawn from ECMO circuitLACTIC ACID, ARTERIAL, WHOLE [id number] 14:07:00 Test Item Value Reference Range Interpretation Comments LACTATE BLOOD 13.1 mmol/L 0.5-2.2 H Specimen sligh tly ARTERIAL (2) (BEAKER) hemoly zed (test code = 2874) Effective 01/04/2016: Units/Reference Range ChangeNew: 0.5-2.2 mmol/L Previous: 5-20 mg/dLPROTHROMBIN [id number] 14:01:00 Test Item Value Reference Range Interpretation Comments PROTIME (BEAKER) (test code = 20.9 seconds 11.7-14.7 H 759) INR (BEAKER) (test code = 370) 1.8 <=5.9 RECOMMENDED COUMADIN/WARFARIN INR THERAPY RANGESSTANDARD DOSE: 2.0 - 3.0 Includes: PROPHYLAXIS forvenous thrombosis, systemic embolization; TREATMENT for venous thrombosis and/or pulmonary embolus.HIGH RISK: Target INR is 2.5-3.5 for patients with mechanical heart valves.[id number] 14:01:00 Test Item Value Reference Range Interpretation Comments FIBRINOGEN LEVEL (BEAKER) (test 227 mg/dl 225-434 code = 658) PLATELET [id number] 13:54:00 Test Item Value Reference Range Interpretation Comments PLATELET COUNT (BEAKER) (test 115 K/CU MM 150-450 L code = 756) BLOOD GAS, [id number] 13:47:00 Test Item Value Reference Range Interpretation [...] (test code = 1819) 40.0 % GLUCOSE-STAT [id number] 13:47:00 Test Item Value Reference Range Interpretation Comments GLUCOSE RANDOM (BEAKER) (test code 134 mg/dL 70-110 H = 652) [id number] 12:33:00 Test Item Value Reference Range Interpretation Comments POTASSIUM (BEAKER) (test code = 5.6 meq/L 3.5-5.1 H 379) PRN - repeat glucose levels every 1 hour or as specified by insulin titration orders until glucose level is less than 450 mg/[id number] 12:33:00 Test Item Value Reference Range Interpretation Comments GLUCOSE RANDOM (BEAKER) (test code = 43 mg/dL 70-105 L 652) PRN - repeat glucose levels every 1 hour or as specified by insulin titration orders until glucose level is less than 450 mg/dLBASIC METABOLIC [id number] 11:05:00 Test Item Value Reference Range Interpretation [...] until glucose level is less than 450 mg/[id number] 11:05:00 Test Item Value Reference Range Interpretation Comments GLUCOSE RANDOM (BEAKER) (test code = 34 mg/dL 70-105 LL 652) [id number] 10:44:00 Test Item Value Reference Range Interpretation Comments POTASSIUM (BEAKER) (test code = 5.9 meq/L 3.5-5.1 H 379) HEPATIC FUNCTION [id number] 10:44:00 Test Item Value Reference Range Interpretation [...] Previous: 5-20 mg/dLCBC W/PLT COUNT & AUTO [id number] 10:23:00 Test Item Value Reference Range Interpretation [...] (BEAKER) (test code = 2801) BLOOD GAS, [id number] 10:20:00 Test Item Value Reference Range Interpretation [...] (BEAKER) (test code = 1819) 40.0 % [id number] 09:01:00 Test Item Value Reference Range Interpretation Comments POTASSIUM (BEAKER) (test code = 5.9 meq/L 3.5-5.1 H 379) PRN - repeat glucose levels every 1 hour or as specified by insulin titration orders until glucose level is less than 450 mg/[id number] 09:01:00 Test Item Value Reference Range Interpretation Comments MAGNESIUM (BEAKER) (test code = 1.7 mg/dL 1.6-2.6 627) PRN - repeat glucose levels every 1 hour or as specified by insulin titration orders until glucose level is less than 450 mg/[id number] 09:01:00 Test Item Value Reference Range Interpretation Comments PHOSPHORUS (BEAKER) (test code = 4.7 mg/dL 2.3-4.7 604) PRN - repeat glucose levels every 1 hour or as specified by insulin titration orders until glucose level is less than 450 mg/[id number] 09:01:00 Test Item Value Reference Range Interpretation Comments GLUCOSE RANDOM (BEAKER) (test code = 50 mg/dL 70-105 L 652) PRN - repeat glucose levels every 1 hour or as specified by insulin titration orders until glucose level is less than 450 mg/dLCALCIUM, [id number] 08:47:00 Test Item Value Reference Range Interpretation Comments CALCIUM IONIZED (BEAKER) (test 1.24 mmol/L 1.12-1.27 code = 698) PH, BLOOD (BEAKER) (test code = 7.31 1810) [id number] 08:45:00 Test Item Value Reference Range Interpretation Comments PARTIAL THROMBOPLASTIN TIME 53.7 seconds 22.5-36.0 H (BEAKER) (test code = 760) BLOOD GAS, [id number] 08:41:00 Test Item Value Reference Range Interpretation [...] (test code = 1819) 40.0 % PH, [id number] 08:41:00 Test Item Value Reference Range Interpretation Comments PH ARTERIAL (BEAKER) (test code = 383) 7.31 7.35-7.45 L RAD, CHEST, 1 VIEW, NON [id number] 07:31:00Reason for exam:->s/p cardiac surgeryShould this be [...] Pedro Xie VerifiedDate/Time: 01/11/2018 07:31:38 Reading Location: [address] Consult Reading Room BLOOD GAS, ARTERIAL [...] code = 1819) 40.0 % BASIC METABOLIC [id number] 06:12:00 Test Item Value Reference Range Interpretation [...] NOT APPLICABLE FOR DIALYSIS PATIEN TS. POCT-GLUCOSE [id number] 05:58:00 Test Item Value Reference Range Interpretation Comments POC-GLUCOSE METER 121 mg/dL 70-110 H TESTED AT [facility] [address] (BEAKER) (test code = [place] [address]) [id number] POCT-GLUCOSE [id number] 05:58:00 Test Item Value Reference Range Interpretation Comments POC-GLUCOSE METER 66 mg/dL 70-110 L Will Repea t Test/TESTED (BEAKER) (test code = AT [facility] [address] [place] [address] 1538) [facility] [address] [id number] 05:51:00 Test Item Value Reference Range Interpretation Comments PHOSPHORUS (BEAKER) (test code = 3.5 mg/dL 2.3-4.7 604) [id number] 05:51:00 Test Item Value Reference Range Interpretation Comments MAGNESIUM (BEAKER) (test code = 1.9 mg/dL 1.6-2.6 627) BLOOD GAS, [id number] 05:47:00 Test Item Value Reference Range Interpretation [...] (test code = 1819) 40.0 % POCT-GLUCOSE [id number] 05:27:00 Test Item Value Reference Range Interpretation Comments POC-GLUCOSE METER 112 mg/dL 70-110 H TESTED AT [place] [address] (BEAKER) (test code = [place] [facility] 1538) [address] POCT-GLUCOSE [id number] 05:27:00 Test Item Value Reference Range Interpretation Comments POC-GLUCOSE METER 106 mg/dL 70-110 [facility] [place] [address] [facility] (test code = MARIA GMT Humberto [facility] 1538) [address] POCT-GLUCOSE [id number] 05:26:00 Test Item Value Reference Range Interpretation Comments POC-GLUCOSE METER 66 mg/dL 70-110 L TESTED AT [place] [address] (BEAKER) (test code = [place] [address] 1538) LACTIC ACID, ARTERIAL, WHOLE [id number] 04:59:00 Test Item Value Reference Range Interpretation Comments LACTATE BLOOD 12.2 mmol/L 0.5-2.2 H Specimen sligh tly ARTERIAL (2) (BEAKER) hemoly zed (test code = 2874) Effective 01/04/2016: Units/Reference Range ChangeNew: 0.5-2.2 mmol/L Previous: 5-20 mg/dLCALCIUM, [id number] 04:57:00 Test Item Value Reference Range Interpretation Comments CALCIUM IONIZED (BEAKER) (test 1.33 mmol/L 1.12-1.27 H code = 698) PH, BLOOD (BEAKER) (test code = 7.30 1810) BLOOD GAS, [id number] 04:57:00 Test Item Value Reference Range Interpretation [...] code = 1819) 45.0 % OXYGEN SATURATION, [id number] 04:56:00 Test Item Value Reference Range Interpretation Comments O2 SATURATION (MEASURED) (BEAKER) 83.2 % (test code = 1455) CBC W/PLT COUNT & AUTO [id number] 04:56:00 Test Item Value Reference Range Interpretation [...] PERCENT (BEAKER) (test code = 2801) CALCIUM, [id number] 03:38:00 Test Item Value Reference Range Interpretation Comments CALCIUM IONIZED (BEAKER) (test 1.32 mmol/L 1.12-1.27 H code = 698) PH, BLOOD (BEAKER) (test code = 7.29 1810) BLOOD GAS, [id number] 03:36:00 Test Item Value Reference Range Interpretation [...] 1819) 50.0 % HGB/HCT (H&H) - STAT [id number] 03:36:00 Test Item Value Reference Range Interpretation Comments HEMOGLOBIN (BEAKER) (test code = 12.5 g/dL 13.0-16.8 L 410) HEMATOCRIT (BEAKER) (test code = 37.0 % 40.0-50.0 L 411) OXYGEN SATURATION, [id number] 03:35:00 Test Item Value Reference Range Interpretation Comments O2 SATURATION (MEASURED) (BEAKER) 80.3 % (test code = 1455) GLUCOSE-STAT [id number] 03:34:00 Test Item Value Reference Range Interpretation Comments GLUCOSE RANDOM (BEAKER) (test code = 91 mg/dL 70-110 652) SODIUM NA-STAT [id number] 03:34:00 Test Item Value Reference Range Interpretation Comments SODIUM (BEAKER) (test code = 381) 137 meq/L 135-148 POTASSIUM-STAT [id number] 03:34:00 Test Item Value Reference Range Interpretation Comments POTASSIUM (BEAKER) (test code = 4.6 meq/L 3.6-5.5 379) BLOOD GAS, [id number] 03:01:00 Test Item Value Reference Range Interpretation [...] 1819) 50.0 % HGB/HCT (H&H) - STAT [id number] 03:01:00 Test Item Value Reference Range Interpretation Comments HEMOGLOBIN (BEAKER) (test code = 12.0 g/dL 13.0-16.8 L 410) HEMATOCRIT (BEAKER) (test code = 35.0 % 40.0-50.0 L 411) POTASSIUM-STAT [id number] 03:00:00 Test Item Value Reference Range Interpretation Comments POTASSIUM (BEAKER) (test code = 5.0 meq/L 3.6-5.5 379) GLUCOSE-STAT [id number] 03:00:00 Test Item Value Reference Range Interpretation Comments GLUCOSE RANDOM (BEAKER) (test code 102 mg/dL 70-110 = 652) SODIUM NA-STAT [id number] 03:00:00 Test Item Value Reference Range Interpretation Comments SODIUM (BEAKER) (test code = 381) 140 meq/L 135-148 LACTIC ACID, ARTERIAL, WHOLE [id number] 01:53:00 Test Item Value Reference Range Interpretation Comments LACTATE BLOOD 9.4 mmol/L 0.5-2.2 H Specimen sligh tly ARTERIAL (2) (BEAKER) hemoly zed (test code = 2874) Effective 01/04/2016: Units/Reference Range ChangeNew: 0.5-2.2 mmol/L Previous: 5-20 mg/dLGLUCOSE-STAT [id number] 01:27:00 Test Item Value Reference Range Interpretation Comments GLUCOSE RANDOM (BEAKER) (test code = 99 mg/dL 70-110 652) BLOOD GAS, [id number] 01:27:00 Test Item Value Reference Range Interpretation [...] 1819) 100.0 % HGB/HCT (H&H) - STAT [id number] 01:27:00 Test Item Value Reference Range Interpretation Comments HEMOGLOBIN (BEAKER) (test code = 12.7 g/dL 13.0-16.8 L 410) HEMATOCRIT (BEAKER) (test code = 37.0 % 40.0-50.0 L 411) SODIUM NA-STAT [id number] 01:26:00 Test Item Value Reference Range Interpretation Comments SODIUM (BEAKER) (test code = 381) 141 meq/L 135-148 POTASSIUM-STAT [id number] 01:26:00 Test Item Value Reference Range Interpretation Comments POTASSIUM (BEAKER) (test code = 3.6 meq/L 3.6-5.5 379) [id number] 00:38:00 Test Item Value Reference Range Interpretation Comments PARTIAL THROMBOPLASTIN TIME 47.4 seconds 22.5-36.0 H (BEAKER) (test code = 760) [id number] 00:35:00 Test Item Value Reference Range Interpretation Comments POTASSIUM (BEAKER) 3.5 meq/L 3.5-5.1 Specimen slightly (test code = 379) hemolyzed CALCIUM, [id number] 00:25:00 Test Item Value Reference Range Interpretation [...] = 1414) RAD, CHEST, 1 VIEW, NON [id number] 22:36:00Reason for exam:->s/p BronchoscopyFINAL REPORT CLINICAL INDICATION: Post bronchoscopy Comparison: Same date [id number] hours There is improved aeration of the right upper lobe. No pneumothorax is present. Hazy opacity in the right upper lobe and in the retrocardiac lower lungs may reflect atelectasis but pneumonitis should be excluded clinically. The cardiomediastinal contours are stable. Support lines are stable. Signed: Kellen Parra MDReport Verified Date/Time: 01/10/2018 22:36:29 Reading Location: [address] Reading Room C METABOLIC [id number] 22:01:00 Test Item Value Reference Range Interpretation [...] S NOT APPLICABLE FOR DIALYSIS PATIEN TS. [id number] 22:00:00 Test Item Value Reference Range Interpretation Comments MAGNESIUM (BEAKER) 2.4 mg/dL 1.6-2.6 Specimen slightly (test code = 627) hemolyzed [id number] 22:00:00 Test Item Value Reference Range Interpretation Comments PHOSPHORUS (BEAKER) 3.2 mg/dL 2.3-4.7 Specimen slightly (test code = 604) hemolyzed LACTIC ACID, ARTERIAL, WHOLE [id number] 21:57:00 Test Item Value Reference Range Interpretation Comments LACTATE BLOOD 10.2 mmol/L 0.5-2.2 H Specimen sligh tly ARTERIAL (2) (BEAKER) hemoly zed (test code = 2874) Effective 01/04/2016: Units/Reference Range ChangeNew: 0.5-2.2 mmol/L Previous: 5-20 mg/dLCBC W/PLT COUNT & AUTO [id number] 21:51:00 Test Item Value Reference Range Interpretation [...] 0-1 PERCENT (BEAKER) (test code = 2808) [id number] 21:49:00 Test Item Value Reference Range Interpretation Comments PARTIAL THROMBOPLASTIN TIME 41.2 seconds 22.5-36.0 H (BEAKER) (test code = 760) PROTHROMBIN [id number] 21:48:00 Test Item Value Reference Range Interpretation Comments PROTIME (BEAKER) (test code = 19.8 seconds 11.7-14.7 H 759) INR (BEAKER) (test code = 370) 1.7 <=5.9 RECOMMENDED COUMADIN/WARFARIN INR THERAPY RANGESSTANDARD DOSE: 2.0 - 3.0 Includes: PROPHYLAXIS forvenous thrombosis, systemic embolization; TREATMENT for venous thrombosis and/or pulmonary embolus.HIGH RISK: Target INR is 2.5-3.5 for patients with mechanical heart valves.[id number] 21:48:00 Test Item Value Reference Range Interpretation Comments FIBRINOGEN LEVEL (BEAKER) (test 221 mg/dl 225-434 L code = 658) CALCIUM, [id number] 21:33:00 Test Item Value Reference Range Interpretation Comments CALCIUM IONIZED (BEAKER) (test 1.54 mmol/L 1.12-1.27 H code = 698) PH, BLOOD (BEAKER) (test code = 7.33 1810) OXYGEN SATURATION, [id number] 21:33:00 Test Item Value Reference Range Interpretation Comments O2 SATURATION (MEASURED) (BEAKER) 67.1 % (test code = 1455) GLUCOSE-STAT [id number] 21:32:00 Test Item Value Reference Range Interpretation Comments GLUCOSE RANDOM (BEAKER) (test code = 98 mg/dL 70-110 652) SODIUM NA-STAT [id number] 21:32:00 Test Item Value Reference Range Interpretation Comments SODIUM (BEAKER) (test code = 381) 139 meq/L 135-148 POTASSIUM-STAT [id number] 21:32:00 Test Item Value Reference Range Interpretation Comments POTASSIUM (BEAKER) (test code = 3.6 meq/L 3.6-5.5 379) BLOOD GAS, [id number] 21:32:00 Test Item Value Reference Range Interpretation [...] 1819) 60.0 % HGB/HCT (H&H) - STAT [id number] 21:32:00 Test Item Value Reference Range Interpretation Comments HEMOGLOBIN (BEAKER) (test code = 8.2 g/dL 13.0-16.8 L 410) HEMATOCRIT (BEAKER) (test code = 24.0 % 40.0-50.0 L 411) RAD, CHEST, 1 VIEW, NON [id number] 21:32:00Reason for exam:->s/p cardiac surgeryShould this be [...] the level of the clavicles. Right IJ [place] catheter terminatesin the distal right pulmonary artery. The soft tissues and osseous structures are intact. IMPRESSION: Postoperative changes with right upper lobe collapse, likely secondary to mucous plugging. Supporting lines and tubes as described above. Note position of the [place] catheter. Signed: Moiz Musa MDReport Verified Date/Time: 01/10/2018 21:32:31 Reading Location: [address] Consult Reading Room THROMBOELASTOGRAPH (TEG)2018-01-10 21:01:00 [...] 55.0-65.0 L (test code = 1413) CALCIUM, [id number] 20:42:00 Test Item Value Reference Range Interpretation Comments CALCIUM IONIZED (BEAKER) (test 1.41 mmol/L 1.12-1.27 H code = 698) PH, BLOOD (BEAKER) (test code = 7.41 1810) SODIUM NA-STAT [id number] 20:41:00 Test Item Value Reference Range Interpretation Comments SODIUM (BEAKER) (test code = 381) 138 meq/L 135-148 POTASSIUM-STAT [id number] 20:41:00 Test Item Value Reference Range Interpretation Comments POTASSIUM (BEAKER) (test code = 3.7 meq/L 3.6-5.5 379) BLOOD GAS, [id number] 20:41:00 Test Item Value Reference Range Interpretation [...] (test code = 1819) 100.0 % GLUCOSE-STAT [id number] 20:41:00 Test Item Value Reference Range Interpretation Comments GLUCOSE RANDOM (BEAKER) (test code 120 mg/dL 70-110 H = 652) HGB/HCT (H&H) - STAT [id number] 20:41:00 Test Item Value Reference Range Interpretation Comments HEMOGLOBIN (BEAKER) (test code = 7.8 g/dL 13.0-16.8 L 410) HEMATOCRIT (BEAKER) (test code = 23.0 % 40.0-50.0 L 411) [id number] 20:23:00 Test Item Value Reference Range Interpretation Comments FIBRINOGEN LEVEL (BEAKER) (test 239 mg/dl 225-434 code = 658) [id number] 20:23:00 Test Item Value Reference Range Interpretation Comments PARTIAL THROMBOPLASTIN TIME 38.6 seconds 22.5-36.0 H (BEAKER) (test code = 760) PROTHROMBIN [id number] 20:22:00 Test Item Value Reference Range Interpretation Comments PROTIME (BEAKER) (test code = 21.6 seconds 11.7-14.7 H 759) INR ([facility]) (test code = 370) 1.9 <=5.9 RECOMMENDED COUMADIN/WARFARIN INR THERAPY RANGESSTANDARD DOSE: 2.0 - 3.0 Includes: PROPHYLAXIS forvenous thrombosis, systemic embolization; TREATMENT for venous thrombosis and/or pulmonary embolus.HIGH RISK: Target INR is 2.5-3.5 for patients with mechanical heart valves.[id number] 20:16:00 Test Item Value Reference Range Interpretation Comments ACTIVATED CLOTTING TIME 114 sec TEST ED AT [place] [address] ([facility]) (test code = [place] [facility] [address]) [id number] 20:16:00 Test Item Value Reference Range Interpretation Comments ACTIVATED CLOTTING TIME 499 sec TEST ED AT [place] [address] ([facility]) (test code = [place] [address]) [id number] 20:16:00 Test Item Value Reference Range Interpretation Comments ACTIVATED CLOTTING TIME 483 sec TEST ED AT [place] [address] ([facility]) (test code = [place] [address]) [address] [id number] 20:16:00 Test Item Value Reference Range Interpretation Comments ACTIVATED CLOTTING TIME 538 sec TEST ED AT [place] [address] ([facility]) (test code = [place] [address]) [address] [id number] 20:16:00 Test Item Value Reference Range Interpretation Comments ACTIVATED CLOTTING TIME 615 sec TEST ED AT [place] [address] ([facility]) (test code = [place] [address]) [address] [id number] 20:16:00 Test Item Value Reference Range Interpretation Comments ACTIVATED CLOTTING TIME 692 sec TEST ED AT [place] [address] ([facility]) (test code = [place] 441) [address] [id number] 20:16:00 Test Item Value Reference Range Interpretation Comments ACTIVATED CLOTTING TIME 428 sec TEST ED AT [place] [address] ([facility]) (test code = [place] 441) [address] [id number] 20:16:00 Test Item Value Reference Range Interpretation Comments ACTIVATED CLOTTING TIME 373 sec TEST ED AT [place] [address] ([facility]) (test code = [place] 441) [address] [id number] 20:16:00 Test Item Value Reference Range Interpretation Comments ACTIVATED CLOTTING TIME 455 sec TEST ED AT [place] [address] ([facility]) (test code = [place] [address]) [address] [id number] 20:16:00 Test Item Value Reference Range Interpretation Comments ACTIVATED CLOTTING TIME 494 sec TEST ED AT [place] [address] ([facility]) (test code = [place] 441) [address] [id number] 20:16:00 Test Item Value Reference Range Interpretation Comments ACTIVATED CLOTTING TIME 527 sec TEST ED AT [place] [address] ([facility]) (test code = [place] 441) [address] [id number] 20:16:00 Test Item Value Reference Range Interpretation Comments ACTIVATED CLOTTING TIME 610 sec TEST ED AT [place] [address] ([facility]) (test code = [place] [address]) [address] [id number] 20:16:00 Test Item Value Reference Range Interpretation Comments ACTIVATED CLOTTING TIME 576 sec TEST ED AT [place] [address] ([facility]) (test code = [place] [address]) [address] [id number] 20:16:00 Test Item Value Reference Range Interpretation Comments ACTIVATED CLOTTING TIME 384 sec TEST ED AT [facility] 67[address] (BEAKER) (test code = [place] [address]) [address] PLATELET [id number] 20:08:00 Test Item Value Reference Range Interpretation [...] 0.0-5.0 (BEAKER) (test code = 1414) CALCIUM, [id number] 19:59:00 Test Item Value Reference Range Interpretation Comments CALCIUM IONIZED (BEAKER) (test 1.39 mmol/L 1.12-1.27 H code = 698) PH, BLOOD (BEAKER) (test code = 7.37 1810) BLOOD GAS, [id number] 19:58:00 Test Item Value Reference Range Interpretation [...] (test code = 1819) 100.0 % GLUCOSE-STAT [id number] 19:58:00 Test Item Value Reference Range Interpretation Comments GLUCOSE RANDOM (BEAKER) (test code 143 mg/dL 70-110 H = 652) HGB/HCT (H&H) - STAT [id number] 19:58:00 Test Item Value Reference Range Interpretation Comments HEMOGLOBIN (BEAKER) (test code = 8.7 g/dL 13.0-16.8 L 410) HEMATOCRIT (BEAKER) (test code = 26.0 % 40.0-50.0 L 411) SODIUM NA-STAT [id number] 19:57:00 Test Item Value Reference Range Interpretation Comments SODIUM (BEAKER) (test code = 381) 140 meq/L 135-148 POTASSIUM-STAT [id number] 19:57:00 Test Item Value Reference Range Interpretation Comments POTASSIUM (BEAKER) (test code = 3.9 meq/L 3.6-5.5 379) [id number] 19:29:00 Test Item Value Reference Range Interpretation Comments PARTIAL THROMBOPLASTIN TIME > seconds 22.5-36.0 HH (BEAKER) (test code = 760) [id number] 19:16:00 Test Item Value Reference Range Interpretation Comments FIBRINOGEN LEVEL (BEAKER) (test 271 mg/dl 225-434 code = 658) PROTHROMBIN [id number] 19:15:00 Test Item Value Reference Range Interpretation Comments PROTIME (BEAKER) (test code = 21.3 seconds 11.7-14.7 H 759) INR (BEAKER) (test code = 370) 1.8 <=5.9 RECOMMENDED COUMADIN/WARFARIN INR THERAPY RANGESSTANDARD DOSE: 2.0 - 3.0 Includes: PROPHYLAXIS forvenous thrombosis, systemic embolization; TREATMENT for venous thrombosis and/or pulmonary embolus.HIGH RISK: Target INR is 2.5-3.5 for patients with mechanical heart valves.PLATELET [id number] 19:06:00 Test Item Value Reference Range Interpretation Comments PLATELET COUNT (BEAKER) (test code 54 K/CU MM 150-450 L = 756) BLOOD GAS, [id number] 18:49:00 Test Item Value Reference Range Interpretation [...] 1819) 100.0 % HGB/HCT (H&H) - STAT [id number] 18:44:00 Test Item Value Reference Range Interpretation Comments HEMOGLOBIN (BEAKER) (test code = 10.1 g/dL 13.0-16.8 L 410) HEMATOCRIT (BEAKER) (test code = 30.0 % 40.0-50.0 L 411) SODIUM NA-STAT [id number] 18:43:00 Test Item Value Reference Range Interpretation Comments SODIUM (BEAKER) (test code = 381) 137 meq/L 135-148 POTASSIUM-STAT [id number] 18:43:00 Test Item Value Reference Range Interpretation Comments POTASSIUM (BEAKER) (test code = 5.0 meq/L 3.6-5.5 379) GLUCOSE-STAT [id number] 18:43:00 Test Item Value Reference Range Interpretation Comments GLUCOSE RANDOM (BEAKER) (test code 187 mg/dL 70-110 H = 652) SODIUM NA-STAT [id number] 18:22:00 Test Item Value Reference Range Interpretation Comments SODIUM (BEAKER) (test code = 381) 140 meq/L 135-148 POTASSIUM-STAT [id number] 18:22:00 Test Item Value Reference Range Interpretation Comments POTASSIUM (BEAKER) (test code = 4.7 meq/L 3.6-5.5 379) BLOOD GAS, [id number] 18:22:00 Test Item Value Reference Range Interpretation [...] (test code = 1819) 60.0 % GLUCOSE-STAT [id number] 18:22:00 Test Item Value Reference Range Interpretation Comments GLUCOSE RANDOM (BEAKER) (test code 209 mg/dL 70-110 H = 652) HGB/HCT (H&H) - STAT [id number] 18:22:00 Test Item Value Reference Range Interpretation Comments HEMOGLOBIN (BEAKER) (test code = 10.2 g/dL 13.0-16.8 L 410) HEMATOCRIT (BEAKER) (test code = 30.0 % 40.0-50.0 L 411) BLOOD GAS, [id number] 17:57:00 Test Item Value Reference Range Interpretation [...] (test code = 1819) 65.0 % GLUCOSE-STAT [id number] 17:57:00 Test Item Value Reference Range Interpretation Comments GLUCOSE RANDOM (BEAKER) (test code 198 mg/dL 70-110 H = 652) HGB/HCT (H&H) - STAT [id number] 17:57:00 Test Item Value Reference Range Interpretation Comments HEMOGLOBIN (BEAKER) (test code = 10.3 g/dL 13.0-16.8 L 410) HEMATOCRIT (BEAKER) (test code = 30.0 % 40.0-50.0 L 411) SODIUM NA-STAT [id number] 17:56:00 Test Item Value Reference Range Interpretation Comments SODIUM (BEAKER) (test code = 381) 138 meq/L 135-148 POTASSIUM-STAT [id number] 17:56:00 Test Item Value Reference Range Interpretation Comments POTASSIUM (BEAKER) (test code = 4.7 meq/L 3.6-5.5 379) BLOOD GAS, [id number] 17:28:00 Test Item Value Reference Range Interpretation [...] (test code = 1819) 65.0 % GLUCOSE-STAT [id number] 17:28:00 Test Item Value Reference Range Interpretation Comments GLUCOSE RANDOM (BEAKER) (test code 223 mg/dL 70-110 H = 652) HGB/HCT (H&H) - STAT [id number] 17:28:00 Test Item Value Reference Range Interpretation Comments HEMOGLOBIN (BEAKER) (test code = 10.1 g/dL 13.0-16.8 L 410) HEMATOCRIT (BEAKER) (test code = 30.0 % 40.0-50.0 L 411) SODIUM NA-STAT [id number] 17:27:00 Test Item Value Reference Range Interpretation Comments SODIUM (BEAKER) (test code = 381) 140 meq/L 135-148 POTASSIUM-STAT [id number] 17:27:00 Test Item Value Reference Range Interpretation [...] code = 1414) HGB/HCT (H&H) - STAT [id number] 17:01:00 Test Item Value Reference Range Interpretation Comments HEMOGLOBIN (BEAKER) (test code = 10.1 g/dL 13.0-16.8 L 410) HEMATOCRIT (BEAKER) (test code = 30.0 % 40.0-50.0 L 411) BLOOD GAS, [id number] 17:00:00 Test Item Value Reference Range Interpretation [...] (test code = 1819) 65.0 % GLUCOSE-STAT [id number] 17:00:00 Test Item Value Reference Range Interpretation Comments GLUCOSE RANDOM (BEAKER) (test code 243 mg/dL 70-110 H = 652) SODIUM NA-STAT [id number] 16:59:00 Test Item Value Reference Range Interpretation Comments SODIUM (BEAKER) (test code = 381) 139 meq/L 135-148 POTASSIUM-STAT [id number] 16:59:00 Test Item Value Reference Range Interpretation Comments POTASSIUM (BEAKER) (test code = 4.6 meq/L 3.6-5.5 379) [id number] 16:47:00 Test Item Value Reference Range Interpretation Comments PARTIAL THROMBOPLASTIN TIME > seconds 22.5-36.0 HH (BEAKER) (test code = 760) BLOOD GAS, [id number] 16:18:00 Test Item Value Reference Range Interpretation [...] (test code = 1819) 65.0 % GLUCOSE-STAT [id number] 16:18:00 Test Item Value Reference Range Interpretation Comments GLUCOSE RANDOM (BEAKER) (test code 279 mg/dL 70-110 H = 652) HGB/HCT (H&H) - STAT [id number] 16:18:00 Test Item Value Reference Range Interpretation Comments HEMOGLOBIN (BEAKER) (test code = 7.0 g/dL 13.0-16.8 L 410) HEMATOCRIT (BEAKER) (test code = 21.0 % 40.0-50.0 L 411) SODIUM NA-STAT [id number] 16:17:00 Test Item Value Reference Range Interpretation Comments SODIUM (BEAKER) (test code = 381) 137 meq/L 135-148 POTASSIUM-STAT [id number] 16:17:00 Test Item Value Reference Range Interpretation Comments POTASSIUM (BEAKER) (test code = 4.6 meq/L 3.6-5.5 379) [id number] 16:15:00 Test Item Value Reference Range Interpretation Comments FIBRINOGEN LEVEL (BEAKER) (test 255 mg/dl 225-434 code = 658) PROTHROMBIN [id number] 16:14:00 Test Item Value Reference Range Interpretation Comments PROTIME (BEAKER) (test code = 20.2 seconds 11.7-14.7 H 759) INR (BEAKER) (test code = 370) 1.7 <=5.9 RECOMMENDED COUMADIN/WARFARIN INR THERAPY RANGESSTANDARD DOSE: 2.0 - 3.0 Includes: PROPHYLAXIS forvenous thrombosis, systemic embolization; TREATMENT for venous thrombosis and/or pulmonary embolus.HIGH RISK: Target INR is 2.5-3.5 for patients with mechanical heart valves.PLATELET [id number] 16:02:00 Test Item Value Reference Range Interpretation Comments PLATELET COUNT (BEAKER) (test code 57 K/CU MM 150-450 L = 756) BLOOD GAS, [id number] 15:51:00 Test Item Value Reference Range Interpretation [...] (test code = 1819) 100.0 % GLUCOSE-STAT [id number] 15:51:00 Test Item Value Reference Range Interpretation Comments GLUCOSE RANDOM (BEAKER) (test code 190 mg/dL 70-110 H = 652) HGB/HCT (H&H) - STAT [id number] 15:51:00 Test Item Value Reference Range Interpretation Comments HEMOGLOBIN (BEAKER) (test code = 7.6 g/dL 13.0-16.8 L 410) HEMATOCRIT (BEAKER) (test code = 22.0 % 40.0-50.0 L 411) POTASSIUM-STAT [id number] 15:51:00 Test Item Value Reference Range Interpretation Comments POTASSIUM (BEAKER) (test code = 5.6 meq/L 3.6-5.5 H 379) CALCIUM, [id number] 15:51:00 Test Item Value Reference Range Interpretation Comments CALCIUM IONIZED (BEAKER) (test 0.82 mmol/L 1.12-1.27 L code = 698) PH, BLOOD (BEAKER) (test code = 7.45 1810) SODIUM NA-STAT [id number] 15:50:00 Test Item Value Reference Range Interpretation Comments SODIUM (BEAKER) (test code = 381) 139 meq/L 135-148 BLOOD GAS, [id number] 15:43:00 Test Item Value Reference Range Interpretation [...] (test code = 1819) 75.0 % GLUCOSE-STAT [id number] 15:43:00 Test Item Value Reference Range Interpretation Comments GLUCOSE RANDOM (BEAKER) (test code 189 mg/dL 70-110 H = 652) HGB/HCT (H&H) - STAT [id number] 15:43:00 Test Item Value Reference Range Interpretation Comments HEMOGLOBIN (BEAKER) (test code = 8.0 g/dL 13.0-16.8 L 410) HEMATOCRIT (BEAKER) (test code = 24.0 % 40.0-50.0 L 411) POTASSIUM-STAT [id number] 15:43:00 Test Item Value Reference Range Interpretation Comments POTASSIUM (BEAKER) (test code = 5.7 meq/L 3.6-5.5 H 379) SODIUM NA-STAT [id number] 15:42:00 Test Item Value Reference Range Interpretation Comments SODIUM (BEAKER) (test code = 381) 136 meq/L 135-148 SODIUM NA-STAT [id number] 15:06:00 Test Item Value Reference Range Interpretation Comments SODIUM (BEAKER) (test code = 381) 139 meq/L 135-148 BLOOD GAS, [id number] 15:06:00 Test Item Value Reference Range Interpretation [...] (test code = 1819) 60.0 % POTASSIUM-STAT [id number] 15:06:00 Test Item Value Reference Range Interpretation Comments POTASSIUM (BEAKER) (test code = 5.8 meq/L 3.6-5.5 H 379) GLUCOSE-STAT [id number] 15:06:00 Test Item Value Reference Range Interpretation Comments GLUCOSE RANDOM (BEAKER) (test code 192 mg/dL 70-110 H = 652) HGB/HCT (H&H) - STAT [id number] 15:06:00 Test Item Value Reference Range Interpretation Comments HEMOGLOBIN (BEAKER) (test code = 8.2 g/dL 13.0-16.8 L 410) HEMATOCRIT (BEAKER) (test code = 24.0 % 40.0-50.0 L 411) POTASSIUM-STAT [id number] 14:41:00 Test Item Value Reference Range Interpretation Comments POTASSIUM (BEAKER) (test code = 5.2 meq/L 3.6-5.5 379) BLOOD GAS, [id number] 14:41:00 Test Item Value Reference Range Interpretation [...] code = 1819) 60.0 % SODIUM NA-STAT [id number] 14:41:00 Test Item Value Reference Range Interpretation Comments SODIUM (BEAKER) (test code = 381) 134 meq/L 135-148 L GLUCOSE-STAT [id number] 14:41:00 Test Item Value Reference Range Interpretation Comments GLUCOSE RANDOM (BEAKER) (test code 195 mg/dL 70-110 H = 652) HGB/HCT (H&H) - STAT [id number] 14:41:00 Test Item Value Reference Range Interpretation Comments HEMOGLOBIN (BEAKER) (test code = 8.2 g/dL 13.0-16.8 L 410) HEMATOCRIT (BEAKER) (test code = 24.0 % 40.0-50.0 L 411) BLOOD GAS, [id number] 14:10:00 Test Item Value Reference Range Interpretation [...] (test code = 1819) 60.0 % GLUCOSE-STAT [id number] 14:10:00 Test Item Value Reference Range Interpretation Comments GLUCOSE RANDOM (BEAKER) (test code 177 mg/dL 70-110 H = 652) HGB/HCT (H&H) - STAT [id number] 14:10:00 Test Item Value Reference Range Interpretation Comments HEMOGLOBIN (BEAKER) (test code = 8.5 g/dL 13.0-16.8 L 410) HEMATOCRIT (BEAKER) (test code = 25.0 % 40.0-50.0 L 411) SODIUM NA-STAT [id number] 14:09:00 Test Item Value Reference Range Interpretation Comments SODIUM (BEAKER) (test code = 381) 136 meq/L 135-148 POTASSIUM-STAT [id number] 14:09:00 Test Item Value Reference Range Interpretation Comments POTASSIUM (BEAKER) (test code = 5.0 meq/L 3.6-5.5 379) SODIUM NA-STAT [id number] 13:39:00 Test Item Value Reference Range Interpretation Comments SODIUM (BEAKER) (test code = 381) 136 meq/L 135-148 POTASSIUM-STAT [id number] 13:39:00 Test Item Value Reference Range Interpretation Comments POTASSIUM (BEAKER) (test code = 5.0 meq/L 3.6-5.5 379) BLOOD GAS, [id number] 13:39:00 Test Item Value Reference Range Interpretation [...] (test code = 1819) 60.0 % GLUCOSE-STAT [id number] 13:39:00 Test Item Value Reference Range Interpretation Comments GLUCOSE RANDOM (BEAKER) (test code 179 mg/dL 70-110 H = 652) HGB/HCT (H&H) - STAT [id number] 13:39:00 Test Item Value Reference Range Interpretation Comments HEMOGLOBIN (BEAKER) (test code = 8.1 g/dL 13.0-16.8 L 410) HEMATOCRIT (BEAKER) (test code = 24.0 % 40.0-50.0 L 411) CALCIUM, [id number] 12:31:00 Test Item Value Reference Range Interpretation Comments CALCIUM IONIZED (BEAKER) (test 1.09 mmol/L 1.12-1.27 L code = 698) PH, BLOOD (BEAKER) (test code = 7.45 1810) GLUCOSE-STAT [id number] 12:30:00 Test Item Value Reference Range Interpretation Comments GLUCOSE RANDOM (BEAKER) (test code = 93 mg/dL 70-110 652) SODIUM NA-STAT [id number] 12:30:00 Test Item Value Reference Range Interpretation Comments SODIUM (BEAKER) (test code = 381) 140 meq/L 135-148 POTASSIUM-STAT [id number] 12:30:00 Test Item Value Reference Range Interpretation Comments POTASSIUM (BEAKER) (test code = 3.9 meq/L 3.6-5.5 379) BLOOD GAS, [id number] 12:30:00 Test Item Value Reference Range Interpretation [...] 1819) 100.0 % HGB/HCT (H&H) - STAT [id number] 12:30:00 Test Item Value Reference Range Interpretation Comments HEMOGLOBIN (BEAKER) (test code = 9.3 g/dL 13.0-16.8 L 410) HEMATOCRIT (BEAKER) (test code = 27.0 % 40.0-50.0 L 411) HEMOGLOBIN [id number] 10:02:00 Test Item Value Reference Range Interpretation Comments HEMOGLOBIN A1C (BEAKER) (test code = 4.4 % 4.3-6.1 368) POCT-GLUCOSE [id number] 09:52:00 Test Item Value Reference Range Interpretation Comments POC-GLUCOSE METER 115 mg/dL 70-110 H TESTED AT [facility] (BEAKER) (test code = [place] 1538) [address] PROTHROMBIN [id number] 02:41:00 Test Item Value Reference Range Interpretation Comments PROTIME (BEAKER) (test code = 14.9 seconds 11.7-14.7 H 759) INR (BEAKER) (test code = 370) 1.2 <=5.9 RECOMMENDED COUMADIN/WARFARIN INR THERAPY RANGESSTANDARD DOSE: 2.0 - 3.0 Includes: PROPHYLAXIS forvenous thrombosis, systemic embolization; TREATMENT for venous thrombosis and/or pulmonary embolus.HIGH RISK: Target INR is 2.5-3.5 for patients with mechanical heart valves.BASIC METABOLIC [id number] 00:29:00 Test Item Value Reference Range Interpretation [...] S NOT APPLICABLE FOR DIALYSIS PATIEN TS. [id number] 00:22:00 Test Item Value Reference Range Interpretation Comments MAGNESIUM (BEAKER) 2.5 mg/dL 1.6-2.6 Specimen slightly (test code = 627) hemolyzed [id number] 00:14:00 Test Item Value Reference Range Interpretation Comments PARTIAL THROMBOPLASTIN TIME 38.6 seconds 22.5-36.0 H (BEAKER) (test code = 760) CBC W/PLT COUNT & AUTO [id number] 00:07:00 Test Item Value Reference Range Interpretation [...] 0-1 PERCENT (BEAKER) (test code = 2801) [id number] 17:03:00 Test Item Value Reference Range Interpretation Comments THYROID STIMULATING HORMONE 1.30 uIU/mL 0.35-4.94 (BEAKER) (test code = 772) HEPATIC FUNCTION [id number] 16:43:00 Test Item Value Reference Range Interpretation [...] 69 U/L 6-55 H 347) BASIC METABOLIC [id number] 15:47:00 Test Item Value Reference Range Interpretation [...] S NOT APPLICABLE FOR DIALYSIS PATIEN TS. [id number] 14:57:00 Test Item Value Reference Range Interpretation Comments PARTIAL THROMBOPLASTIN TIME 82.9 seconds 22.5-36.0 H (BEAKER) (test code = 760) CBC W/PLT COUNT & AUTO [id number] 14:48:00 Test Item Value Reference Range Interpretation [...] PERCENT (BEAKER) (test code = 2801) POCT-GLUCOSE [id number] 11:13:00 Test Item Value Reference Range Interpretation Comments POC-GLUCOSE METER 207 mg/dL 70-110 H TESTED AT [place] [address] [facility] (test code = [place] 15[place]) [address] POCT-GLUCOSE [id number] 08:08:00 Test Item Value Reference Range Interpretation Comments POC-GLUCOSE METER 124 mg/dL 70-110 H [facility] AT [facility] (test code = [place] 1538) [address] [id number] 06:51:00 Test Item Value Reference Range Interpretation Comments PARTIAL THROMBOPLASTIN TIME 54.6 seconds 22.5-36.0 H (BEAKER) (test code = 760) HEPATITIS B SURFACE [id number] 00:28:00 Test Item Value Reference Range Interpretation Comments HEPATITIS B SURFACE ANTIGEN (2) Nonreactive Nonreactive (BEAKER) (test code = 2585) [id number] 00:06:00 Test Item Value Reference Range Interpretation Comments PHOSPHORUS (BEAKER) (test code = 3.2 mg/dL 2.3-4.7 604) [id number] 00:03:00 Test Item Value Reference Range Interpretation Comments PARTIAL THROMBOPLASTIN TIME 36.0 seconds 22.5-36.0 (BEAKER) (test code = 760) CBC W/PLT COUNT & AUTO [id number] 23:45:00 Test Item Value Reference Range Interpretation [...] % 0-1 PERCENT (BEAKER) (test code = 8621) POCT-GLUCOSE [id number] 17:39:00 Test Item Value Reference Range Interpretation Comments POC-GLUCOSE METER 116 mg/dL 70-110 H TESTED AT [facility] [address] ([facility]) (test code = [place] 1538) [address] [id number] 15:35:00 Test Item Value Reference Range Interpretation Comments THYROID STIMULATING HORMONE 1.39 uIU/mL 0.35-4.94 (BEAKER) (test code = 772) [id number] 15:06:00 Test Item Value Reference Range Interpretation Comments PARTIAL THROMBOPLASTIN TIME 31.0 seconds 22.5-36.0 (BEAKER) (test code = 760) Prior to initiating heparinPROTHROMBIN TIME/[id number] 15:05:00 Test Item Value Reference Range Interpretation Comments PROTIME (BEAKER) (test code = 14.4 seconds 11.7-14.7 759) INR (BEAKER) (test code = 370) 1.1 <=5.9 RECOMMENDED COUMADIN/WARFARIN INR THERAPY RANGESSTANDARD DOSE: 2.0 - 3.0 Includes: PROPHYLAXIS forvenous thrombosis, systemic embolization; TREATMENT for venous thrombosis and/or pulmonary embolus.HIGH RISK: Target INR is 2.5-3.5 for patients with mechanical heart valves.PLATELET [id number] 14:52:00 Test Item Value Reference Range Interpretation Comments PLATELET COUNT (JARROD) (test 109 K/CU MM 150-450 L code = 756) POCT-GLUCOSE [id number] 12:00:00 Test Item Value Reference Range Interpretation Comments POC-GLUCOSE METER 186 mg/dL 70-110 H TESTED AT [facility] [address] (JARROD) (test code = [address] [place] 1538) [address] RAD, CHEST, 1 VIEW, NON [id number] 11:43:00Reason for exam:->SOB, known severe MRShould this be performed at the bedside?->YesFINAL REPORT Chest one view AP 01/08/2018 11:42 AM CLINICAL INDICATION: SOB, kno wn severe MR COMPARISON: 12/02/2017 IMPRESSION: Cardiomediastinal contours are stable. There is mild pulmonary edema. There are trace bilateral pleural effusions. Signed: Yevgeniy Anderson Verified Date/Time: 01/08/2018 11:43:52 Reading Location: [facility] Radiology Reading Room Electronic ally signed by: YEVGENIY ANDERSON M.D. on 01/08/2018 11:43 AMRAPID CK-MB 2017-12-02 10:04:00 Test Item Value Reference Range Interpretation Comments RAPID CKMB (JARROD) (test code = 1.5 ng/mL 0.0-4.3 1482) RAPID TROPONIN [id number] 10:04:00 Test Item Value Reference Range Interpretation Comments RAPID TROPONIN I (JARROD) (test code < ng/mL <0.05 = 1483) RAD, CHEST, 2 [id number] 10:00:00Reason for exam:->Chest PainFINAL REPORT Chest two views Discussion: Heart size upper limits of normal. Bilateral interstitial edema with small bilateral effusions. No pneumothorax. Bones and soft tissues unremarkable. Signed: Rhea oClindres Verified Date/Time: 12/02/2017 10:00:39 Reading Location:[facility] Radiology Reading Room B-TYPE NATRIURETIC FACTOR (BNP)2017-12-02 09:56:00 Test Item Value Reference Range Interpretation Comments B-TYPE NATRIURETIC PEPTIDE 1990 pg/mL 0-100 H (BEAKER) (test code = 700) BASIC METABOLIC [id number] 09:52:00 Test Item Value Reference Range Interpretation [...] S NOT APPLICABLE FOR DIALYSIS PATIEN TS. [id number] 09:51:00 Test Item Value Reference Range Interpretation Comments MAGNESIUM (BEAKER) (test code = 1.7 mg/dL 1.5-3.0 627) CBC W/PLT COUNT & AUTO [id number] 09:50:00 Test Item Value Reference Range Interpretation [...] (BEAKER) (test code = 417) CD4/CD8 Ratio [id number] 08:04:00 Test Item Value Reference Range Interpretation Comments Absolute CD 4 Norman (test code 188 /uL 359-1519 L = 538487) % CD 4 Pos. Lymph. (test code = 37.6 % 30.8-58.5 N 925246) Abs. CD 8 Suppressor (test code 183 /uL 109-897 N = 298443) % CD 8 Pos. Lymph. (test code = 36.6 % 12.0-35.5 H 836696) CD4/CD8 Ratio (test code = 1.03 0.92-3.72 N 338163) WBC (test code = 359222) 5.0 x10E3/uL 3.4-10.8 N RBC (test code = 129746) 3.00 x10E6/uL 4.14-5.80 L Hemoglobin (test code = 531647) 9.6 g/dL 13.0-17.7 L Hematocrit (test code = 094285) 27.6 % 37.5-51.0 L MCV (test code = 691610) 92 fL 79-97 N MCH (test code = 413853) 32.0 pg 26.6-33.0 N MCHC (test code = 112112) 34.8 g/dL 31.5-35.7 N RDW (test code = 064454) 15.5 % 12.3-15.4 H Platelets (test code = 607560) 113 x10E3/uL 150-379 L Neutrophils (test code = 84 % Not Estab. N 375785) Lymphs (test code = 568304) 9 % Not Estab. N Monocytes (test code = 819325) 6 % Not Estab. N Eos (test code = 004198) 1 % Not Estab. N Basos (test code = 896504) 0 % Not Estab. N Neutrophils (Absolute) (test 4.2 x10E3/uL 1.4-7.0 N code = 383795) Lymphs (Absolute) (test code = 0.5 x10E3/uL 0.7-3.1 L 917683) Monocytes(Absolute) (test code 0.3 x10E3/uL 0.1-0.9 N = 271082) Eos (Absolute) (test code = 0.0 x10E3/uL 0.0-0.4 N 908338) Baso (Absolute) (test code = 0.0 x10E3/uL 0.0-0.2 N 665909) Immature Granulocytes (test 0 % Not Estab. N code = 468322) Immature Grans (Abs) (test code 0.0 x10E3/uL 0.0-0.1 N = 608912) Culture, Blood [id number] 08:42:00Specimen: BloodCollected: 11/19/2017 00:21 Status: Final Last Updated: 11/24/2017 08:42 Culture Result (Final) (Final) No Growth After 5 DaysCulture, Blood [id number] 08:42:00 Specimen: BloodCollected: 11/18/2017 20:30 Status: Final Last Updated: 11/24/2017 08:42 Culture Result (Final) (Final) No Growth After 5 DaysPOC Glucose, [id number] 11:51:00 Test Item Value Reference Range Interpretation Comments POC Glucose (test 148 mg/dL 70-115 H Notify RN or MDIf you code = POCGLUC) consider you r patient critically ill, the Madeline Accu-Chek InformII metershould not be used for Glucose determinations. Draw a venous Glucose and send to the Main Lab for Analysis. CK [id number] 07:42:00 Test Item Value Reference Range Interpretation Comments CK (test code = CK) na U/L 39-308 N CKMB (test code = CKMB) 4.0 ng/mL 0.0-4.9 N CKMB% (test code = CKMBP) 0.0 % 0.0-3.4 N [id number] 07:39:00 Test Item Value Reference Range Interpretation Comments NT ProBnp (test code = PBNP) >82772 pg/mL 0-124 H Troponin [id number] 07:18:00 Test Item Value Reference Range Interpretation Comments Troponin T (test code = MADHAV) 0.103 ng/mL 0.000-0.090 H Lactate [id number] 07:18:00 Test Item Value Reference Range Interpretation Comments LDH (test code = LDH) 271 U/L 135-225 H POC Glucose, [id number] 06:50:00 Test Item Value Reference Range Interpretation Comments POC Glucose (test 154 mg/dL 70-115 H Notify RN or MDIf you code = POCGLUC) consider you r patient critically ill, the Madeline Accu-Chek InformII metershould not be used for Glucose determinations. Draw a venous Glucose and send to the Main Lab for Analysis. CK [id number] 01:08:00 Test Item Value Reference Range Interpretation Comments CK (test code = CK) na U/L 39-308 N CKMB (test code = CKMB) 3.6 ng/mL 0.0-4.9 N CKMB% (test code = CKMBP) 0.0 % 0.0-3.4 N Troponin [id number] 01:08:00 Test Item Value Reference Range Interpretation Comments Troponin T (test code = MADHAV) 0.106 ng/mL 0.000-0.090 H XR CHEST 1 [id number] 21:02:01CLINICAL INFORMATION: Vascular congestion.Dictation Location: 16Comparison: 11/18/2017 showed perihilar and lower lobe opacities. Technique: Portable AP 195 hoursFINDINGS: Monitoring electrodes overlie the chest wall. Cardiomegaly withincreasing central vascular interstitial prominence with bibasilaropacities and effusions. No interval bone changes.IMPRESSION: Changes could indicate worsening cardiac decompensation orfluid overload.POC Glucose, [id number] 20:15:00 Test Item Value Reference Range Interpretation Comments POC Glucose (test 139 mg/dL 70-115 H If you con mechanical design engineer products your code = POCGLUC) patient crit ically ill, the Madeline Accu- Chek InformII meters hould not be used for Glu cose determinations. Draw a venous Glucose and send to the Main Lab for Analysis. POC Glucose, [id number] 16:52:00 Test Item Value Reference Range Interpretation Comments POC Glucose (test 123 mg/dL 70-115 H If you con mechanical design engineer products your code = POCGLUC) patient crit ically ill, the Madeline Accu- Chek InformII meters hould not be used for Glu cose determinations. Draw a venous Glucose and send to the Main Lab for Analysis. POC Glucose, [id number] 12:04:00 Test Item Value Reference Range Interpretation Comments POC Glucose (test 140 mg/dL 70-115 H If you con mechanical design engineer products your code = POCGLUC) patient crit ically ill, the Madeline Accu- Chek InformII meters hould not be used for Glu cose determinations. Draw a venous Glucose and send to the Main Lab for Analysis. POC Glucose, [id number] 08:01:00 Test Item Value Reference Range Interpretation Comments POC Glucose (test 126 mg/dL 70-115 H If you con mechanical design engineer products your code = POCGLUC) patient crit ically ill, the Madeline Accu- Chek InformII meters hould not be used for Glu cose determinations. Draw a venous Glucose and send to the Main Lab for Analysis. CK [id number] 06:03:00 Test Item Value Reference Range Interpretation Comments CK (test code = CK) na U/L 39-308 N CKMB (test code = CKMB) 2.8 ng/mL 0.0-4.9 N CKMB% (test code = CKMBP) 0.0 % 0.0-3.4 N Basic Metabolic [id number] 05:51:00 Test Item Value Reference Range Interpretation [...] the National Kidney Foundation,http ://nkd ep.nih.gov Magnesium, [id number] 05:51:00 Test Item Value Reference Range Interpretation Comments Magnesium (test code = MG) 1.9 mg/dL 1.7-2.5 N [id number] 05:51:00 Test Item Value Reference Range Interpretation Comments Phosphorus (test code = PO4) 3.8 mg/dL 2.70-4.50 N [id number] 05:51:00 Test Item Value Reference Range Interpretation Comments NT ProBnp (test code = PBNP) >70048 pg/mL 0-124 H Troponin [id number] 05:51:00 Test Item Value Reference Range Interpretation Comments Troponin T (test code = MADHAV) 0.126 ng/mL 0.000-0.090 H CBC with [id number] 05:34:00 Test Item Value Reference Range Interpretation [...] code = ALYMPH) 0.4 K/cumm 0.5-4.6 L [place] Abs (test code = AMONO) 0.6 K/cumm 0.0-1.2 N Eos Abs (test code = AEOS) 0.13 K/cumm 0.00-0.74 N Baso Abs (test code = ABASO) 0.0 K/cumm 0.00-0.21 N CK [id number] 18:39:00 Test Item Value Reference Range Interpretation Comments CK (test code = CK) HIDE U/L 39-308 N CKMB (test code = CKMB) 3.2 ng/mL 0.0-4.9 N CKMB% (test code = CKMBP) HIDE % 0.0-3.4 N Troponin [id number] 18:39:00 Test Item Value Reference Range Interpretation Comments Troponin T (test code = MADHAV) 0.126 ng/mL 0.000-0.090 H Hep B Surface [id number] 18:39:00 Test Item Value Reference Range Interpretation Comments Hep Bs Ag (test code = HBSAG) Nonreactive Non-Reactive A POC Glucose, [id number] 16:47:00 Test Item Value Reference Range Interpretation Comments POC Glucose (test 143 mg/dL 70-115 H If you con mechanical design engineer products your code = POCGLUC) patient crit ically ill, the Madeline Accu- Chek InformII meters hould not be used for Glu cose determinations. Draw a venous Glucose and send to the Main Lab for Analysis. XR CHEST 1 [id number] 08:18:18EXAM: Portable AP chest x-rayLOCATION: R16 INDICATION: CoughCOMPARISON: 11/07/2017FINDINGS:The cardiacsilhouette is stable enlargement. There are increasinginterstitial opacities, most evident in the per ihilar regions and lowerlobes. There is blunting of the costophrenic angles bilaterally. Thereis no discernible pneumothorax.IMPRESSION:Increasing perihilar and bilateral lower lobe opacities compared to theprior exam dated 11/07/2017. Findings may represent pulmonary edema orpneumonia in the appropriate clinical setting.Comprehensive Metabolic [id number] 08:05:00 Test Item Value Reference Range Interpretation [...] the National Kidney Foundation,http ://nkd ep.nih.gov CK [id number] 08:05:00 Test Item Value Reference Range Interpretation Comments CK (test code = CK) 149 U/L 39-308 N Troponin [id number] 08:02:00 Test Item Value Reference Range Interpretation Comments Troponin T (test code = MADHAV) 0.114 ng/mL 0.000-0.090 H [id number] 08:02:00 Test Item Value Reference Range Interpretation Comments NT ProBnp (test code = PBNP) >82448 pg/mL 0-124 H CBC with [id number] 07:53:00 Test Item Value Reference Range Interpretation [...] code = ALYMPH) 0.9 K/cumm 0.5-4.6 N [place] Abs (test code = AMONO) 0.4 K/cumm 0.0-1.2 N Eos Abs (test code = AEOS) 0.11 K/cumm 0.00-0.74 N Baso Abs (test code = ABASO) 0.0 K/cumm 0.00-0.21 N XR CHEST 1 [id number] 21:38:09EXAM: CHEST ONE VIEWINDICATION: CoughCOMPARISON: October 06, 2017TECHNIQUE: AP view of the chest.FINDINGS: The cardiomediastinal silhouette is unchanged. Mild congestive changesbilaterally. No pneumothorax or pleural effusion is identified. Theosseous structures are unremarkable.IMPRESSION: Diffuse congestive changes bilaterally.LOCATION: R16US DUPLX EXT VEINS [facility], [id number] 20:09:34AFTER HOURS SERVICE ON: 10/06/2017 8:09 PMRIGHT Lower Extremity Venous Duplex Doppler ExaminationLocation Code [id number]: SwellingTechnique: Real-time castillo scale, Doppler spectral analysis [...] Lower Extremity Venous Duplex Doppler ExaminationLocation Code [id number] ry: SwellingTechnique: Real-time castillo scale, Doppler spectral [...] of DVT in the imaged vessels.Comprehensive Metabolic [id number] 17:40:00 Test Item Value Reference Range Interpretation [...] National Kidney Foundation,http ://nkd ep.nih.gov CBC with [id number] 17:15:00 Test Item Value Reference Range Interpretation [...] code = ALYMPH) 1.3 K/cumm 0.5-4.6 N [place] Abs (test code = AMONO) 0.6 K/cumm 0.0-1.2 N Eos Abs (test code = AEOS) 0.12 K/cumm 0.00-0.74 N Baso Abs (test code = ABASO) 0.0 K/cumm 0.00-0.21 N XR CHEST 1 [id number] 16:56:42CHEST 1 VIEW: [id number]: coughCOMPARISON:Sep 24, 2017FINDINGS:The heart is enlarged. There is engorgement of the central pulmonaryvasculature. There are patchy bibasilar areas of infiltrate oratelectasis with bilateral effusions. No pneumothorax is present. IMPRESSION: 1. Patchy areas of atelectasis or infiltrate in the lung bases withsmall bilateral effusions and vascular congestion most likely secondaryto CHF.Culture, Blood [id number] 14:58:00Specimen: BloodCollected: 09/24/2017 13:05 Status: Final Last Updated: 09/29/2017 14:58 (1) ER Bed 1 Culture Result (Final) (Final) No Growth After 5 DaysCulture, Blood [id number] 14:58:00Specimen: BloodCollected: 09/24/2017 12:50 Status: Final Last Updated: 09/29/2017 14:58 (1) ER Bed 1 Culture Result (Final) (Final) No Growth After 5 DaysPOC Glucose, [id number] 10:54:00 Test Item Value Reference Range Interpretation Comments POC Glucose (test 168 mg/dL 70-115 H If you con mechanical design engineer products your code = POCGLUC) patient crit ically ill, the Madeline Accu- Chek InformII meters hould not be used for Glu cose determinations. Draw a venous Glucose and send to the Main Lab for Analysis. POC Glucose, [id number] 07:16:00 Test Item Value Reference Range Interpretation Comments POC Glucose (test 143 mg/dL 70-115 H If you con mechanical design engineer products your code = POCGLUC) patient crit ically ill, the Madeline Accu- Chek InformII meters hould not be used for Glu cose determinations. Draw a venous Glucose and send to the Main Lab for Analysis. CBC with [id number] 07:15:00 Test Item Value Reference Range Interpretation [...] code = ALYMPH) 1.3 K/cumm 0.5-4.6 N [place] Abs (test code = AMONO) 0.7 K/cumm 0.0-1.2 N Eos Abs (test code = AEOS) 0.07 K/cumm 0.00-0.74 N Baso Abs (test code = ABASO) 0.0 K/cumm 0.00-0.21 N Magnesium, [id number] 07:03:00 Test Item Value Reference Range Interpretation Comments Magnesium (test code = MG) 2.0 mg/dL 1.7-2.5 N Basic Metabolic [id number] 07:03:00 Test Item Value Reference Range Interpretation [...] National Kidney Foundation,http ://nkd ep.nih.gov POC Glucose, [id number] 21:40:00 Test Item Value Reference Range Interpretation Comments POC Glucose (test 129 mg/dL 70-115 H If you con mechanical design engineer products your code = POCGLUC) patient crit ically ill, the Madeline Accu- Chek InformII meters hould not be used for Glu cose determinations. Draw a venous Glucose and send to the Main Lab for Analysis. Hep B Surface [id number] 18:36:00 Test Item Value Reference Range Interpretation Comments Hep Bs Ag (test code = HBSAG) Nonreactive Non-Reactive A POC Glucose, [id number] 10:51:00 Test Item Value Reference Range Interpretation Comments POC Glucose (test 216 mg/dL 70-115 H If you con mechanical design engineer products your code = POCGLUC) patient crit ically ill, the Madeline Accu- Chek InformII meters hould not be used for Glu cose determinations. Draw a venous Glucose and send to the Main Lab for Analysis. POC Glucose, [id number] 07:57:00 Test Item Value Reference Range Interpretation Comments POC Glucose (test 164 mg/dL 70-115 H If you con mechanical design engineer products your code = POCGLUC) patient crit ically ill, the Madeline Accu- Chek InformII meters hould not be used for Glu cose determinations. Draw a venous Glucose and send to the Main Lab for Analysis. POC Glucose, [id number] 19:47:00 Test Item Value Reference Range Interpretation Comments POC Glucose (test 140 mg/dL 70-115 H Notify RN or MDIf you code = POCGLUC) consider you r patient critically ill, the Madeline Accu-Chek InformII metershould not be used for Glucose determinations. Draw a venous Glucose and send to the Main Lab for Analysis. Troponin [id number] 19:36:00 Test Item Value Reference Range Interpretation Comments Troponin T (test code = MADHAV) 0.121 ng/mL 0.000-0.090 H CK [id number] 19:25:00 Test Item Value Reference Range Interpretation Comments CK (test code = CK) 160 U/L 39-308 N The valu e HIDE originally released by [facility] on 09/25/2017 19:1 2 waschanged to 1 60 by [employer] on 09/25 19:24 CKMB (test code = 3.0 ng/mL 0.0-4.9 N CKMB) CKMB% (test code = 1.9 % 0.0-3.4 N The value HIDE originally CKMBP) released by [facility] on 09/25/2017 19:1 2 waschanged to 1 .9 by [employer] on 09/25 19:24 POC Glucose, [id number] 16:42:00 Test Item Value Reference Range Interpretation Comments POC Glucose (test 123 mg/dL 70-115 H If you con mechanical design engineer products your code = POCGLUC) patient crit ically ill, the Madeline Accu- Chek InformII meters hould not be used for Glu cose determinations. Draw a venous Glucose and send to the Main Lab for Analysis. POC Glucose, [id number] 12:09:00 Test Item Value Reference Range Interpretation Comments POC Glucose (test 141 mg/dL 70-115 H If you con mechanical design engineer products your code = POCGLUC) patient crit ically ill, the Madeline Accu- Chek InformII meters hould not be used for Glu cose determinations. Draw a venous Glucose and send to the Main Lab for Analysis. Hep B Surface [id number] 07:59:00 Test Item Value Reference Range Interpretation Comments Hep Bs Ag (test code = HBSAG) Nonreactive Non-Reactive A CK [id number] 07:43:00 Test Item Value Reference Range Interpretation Comments CK (test code = CK) n/a U/L 39-308 N CKMB (test code = CKMB) 2.4 ng/mL 0.0-4.9 N CKMB% (test code = CKMBP) 0.0 % 0.0-3.4 N Troponin [id number] 07:38:00 Test Item Value Reference Range Interpretation Comments Troponin T (test code = MADHAV) 0.134 ng/mL 0.000-0.090 H Thyroid Stimulating Hormone (TSH)2017-09-25 07:38:00 Test Item Value Reference Range Interpretation Comments TSH (test code = TSH) 1.10 mIU/mL 0.270-4.200 N [id number] 07:38:00 Test Item Value Reference Range Interpretation Comments Phosphorus (test code = PO4) 3.4 mg/dL 2.70-4.50 N Comprehensive Metabolic [id number] 07:38:00 Test Item Value Reference Range Interpretation [...] the National Kid[employer] Foundation,http :[email or web address] ep.nih.gov Magnesium, [id number] 07:38:00 Test Item Value Reference Range Interpretation Comments Magnesium (test code = MG) 2.0 mg/dL 1.7-2.5 N CK [id number] 07:31:00 Test Item Value Reference Range Interpretation Comments CK (test code = CK) 159 U/L 39-308 N Lipid [id number] 07:31:00 Test Item Value Reference Range Interpretation Comments Cholesterol (test 118 mg/dL 0-200 N code = CHOL) Triglycerides (test 170 mg/dL 9-200 N code = TRIG) HDL (test code = 49 mg/dL 40-60 N HDL) Chol/HDL (test code 2.4 Ratio 0.0-5.0 N = CHOLPHDL) LDL, Calculated 35 0-130 N (NOTE)RISK O F HEART (test code = LDLC) DISEASEPu blished by [place] Heart AssociationAnal yte Optim al Boderline Increased RiskC HOL <200 200-239 >240TRI G <150 150-199 >200HDL Male: >60 <40HDL Female: >60 <50 LDL < 100 130-15 9 >160 LDL NEAR OPTIMAL IS 100- 129 VLDL (test code = 34 mg/dL 5-40 N VLDL) LDL/HDL (test code = 1 LDLPHDL) Glycosylated [id number] 07:24:00 Test Item Value Reference Range Interpretation Comments HBA1c (test code = HBA1C) 5.0 % 4.8-5.9 N CBC with [id number] 07:20:00 Test Item Value Reference Range Interpretation [...] code = ALYMPH) 0.8 K/cumm 0.5-4.6 N [place] Abs (test code = AMONO) 0.5 K/cumm 0.0-1.2 N Eos Abs (test code = AEOS) 0.10 K/cumm 0.00-0.74 N Baso Abs (test code = ABASO) 0.0 K/cumm 0.00-0.21 N POC Glucose, [id number] 07:03:00 Test Item Value Reference Range Interpretation Comments POC Glucose (test 147 mg/dL 70-115 H If you con mechanical design engineer products your code = POCGLUC) patient crit ically ill, the [facility] Accu- Chek InformII meters hould not be used for Glu cose determinations. Draw a venous Glucose and send to the Main Lab for Analysis. POC Glucose, [id number] 22:05:00 Test Item Value Reference Range Interpretation Comments POC Glucose (test 134 mg/dL 70-115 H If you con mechanical design engineer products your code = POCGLUC) patient crit ically ill, the [place] Accu- Chek InformII meters hould not be used for Glu cose determinations. Draw a venous Glucose and send to the Main Lab for Analysis. Blood Gas+Lytes+Glu+Ca+Hgb+Hct+[id number] 18:31:00 Test Item Value Reference Range Interpretation [...] (test code = alokrblvverqnscrit COMMENT) liz Pierre@ [id number] Puncture Site (test code = Radial. R PUNSITE) Drawing Tech ID (test code gianfranco fi = DRAWTECH) iPAP (test code = IPAP) 0 cmH2O Respiratory Rate (test code 0 = RESP RATE) Lactic Acid, Blood Gas 0.4 mmol/L (test code = BGLA) CT CHEST W/O [id number] 16:48:03CT CHEST W/O CONTRASTLOCATION CODE: R16 HISTORY: [...] bilateral axillary, prevascular, andparatracheal lymph nodes.Influenza B [id number] 14:36:00Specimen: NasalCollected: 09/24/2017 14:04 Status: Final Last [...] Culture of negative samples is recommended.Influenza A [id number] 14:34:00Specimen: NasalCollected: 09/24/2017 14:04 Status: Final Last [...] Culture of negative samples is recommended.Comprehensive Metabolic [id number] 13:54:00 Test Item Value Reference Range Interpretation [...] the National Kid[employer] Foundation,http ://nkd ep.nih.gov Troponin [id number] 13:54:00 Test Item Value Reference Range Interpretation Comments Troponin T (test code = MADHAV) 0.124 ng/mL 0.000-0.090 H [id number] 13:54:00 Test Item Value Reference Range Interpretation Comments NT ProBnp (test code = PBNP) >03629 pg/mL 0-124 H CK [id number] 13:54:00 Test Item Value Reference Range Interpretation Comments CK (test code = CK) 222 U/L 39-308 N CKMB (test code = CKMB) 3.1 ng/mL 0.0-4.9 N CKMB% (test code = CKMBP) 1.4 % 0.0-3.4 N CK [id number] 13:54:00 Test Item Value Reference Range Interpretation Comments CK (test code = CK) 222 U/L 39-308 N Partial Thromboplastin [id number] 13:43:00 Test Item Value Reference Range Interpretation Comments aPTT (test code = PTT) 35.70 seconds 24.39-37.25 N Prothrombin [id number] 13:43:00 Test Item Value Reference Range Interpretation Comments PT (test code = PT) 11.30 seconds 9.78-13.35 N INR (test code = INR) 0.99 Ratio 0.6-1.2 N Lactic Acid [id number] 13:41:00 Test Item Value Reference Range Interpretation Comments Lactic Acid, Bld (test code = LAC) 1.3 mmol/L 0.5-1.9 N CBC with [id number] 13:32:00 Test Item Value Reference Range Interpretation [...] code = ALYMPH) 1.2 K/cumm 0.5-4.6 N [place] Abs (test code = AMONO) 0.6 K/cumm 0.0-1.2 N Eos Abs (test code = AEOS) 0.23 K/cumm 0.00-0.74 N Baso Abs (test code = ABASO) 0.0 K/cumm 0.00-0.21 N XR CHEST 1 [id number] 12:50:14XR CHEST 1 VIEWLOCATION: [id number]: None.INDICATION: CoughDISCUSSION:A single portable chest radiograph was [...]
[2021-07-16 01:01] VITALS: BP 118/56; O2SAT 96
== END 2021-07-16 00:02 | disposition home or self-care (01) ==
LOC: ER 22:41
DX: I47.1 Supraventricular tachycardia (principal); E11.22 Type 2 diabetes mellitus with diabetic chronic kidney disease; N18.6 End stage renal disease; B20 Human immunodeficiency virus [HIV] disease; C46.0 Kaposi's sarcoma of skin; Z99.2 Dependence on renal dialysis; Z95.4 Presence of other heart-valve replacement; Z79.01 Long term (current) use of anticoagulants
CPT/HCPCS: 96365; 93005 ×2; 85025; 80048; 36415; 83735; 82947; 99291; J7050

== ENCOUNTER 2021-07-20 11:27 | Emergency (ER) | payer OTHER ==
--- OUTSIDE RECORDS SUMMARY | 2021-07-20 12:05 | XMS REPORT | Continuity of Care Document ---
:1955 Author Organization [facility] t Address [address] [place] [address] Care Team Providers Name Role Phone RADHA ROSALES Primary Care Physician Unavailable MELVIN SHER Attending Clinician Unavailable DELANEY OCAMPO Attending Clinician Unavailable BOBBY Attending Clinician Unavailable SOBEIDA BARRY Attending Clinician Unavailable JEFF ZAYAS Attending Clinician Unavailable Ev BRUSH Attending Clinician Unavailable ELA LORENZANA Attending Clinician Unavailable Bay WHALEY Attending Clinician [...] SHILA JAFFE MD, M.D. Attending Clinician Unavailable RAHUL OCAMPO Admitting Clinician Unavailable LISA Admitting Clinician Unavailable MD AYE GONZALEZ Admitting Clinician Unavailable KAZ TURPIN Admitting Clinician Unavailable TROY SOLANO Admitting Clinician Unavailable SANJUANA BREWER Admitting Clinician Unavailable Xaiver HOLLOWAY Admitting Clinician Unavailable ELIANA Admitting Clinician Unavailable SHILA JAFFE MD, MEric, M Admitting Clinician Unavail able Payers Payer Name Policy Type Policy Number Effective Date Expiration Date S prabhjot MEDICARE A B [id number] 2010 00:00:00 MEDICARE PART A & [id number] 2010 B 00:00:00 MEDICARE PART A [id number] 2010 \\T\\ B 00:00:00 CDC REVIEW [id number] 2020 00:00:00 Problems This patient has no known problems. Allergies, Adverse Reactions, Alerts Allergy Allergy Status Severity Reaction(s) Onset Inactive Treating Comm ents Source Name Type Date Date Clinician CODEINE Allergy Active Med Other [facility] 12-02 00:00: 00 NO KNOWN Drug Active Univers ALLERGIE Class [facility] of [facility] Medications This patient has no known medications. [...] Procedure Date / Time Performed Performing Clinician Sourc e 6H3U15Z 2020-06-29 00:00:00 ENCPL 8M7W36O 2020-06-29 00:00:00 ENCPL 8X0A62T 2020-06-29 00:00:00 ENCPL 4V5E28F 2020-06-29 00:00:00 ENCPL 0D4G45L 2020-06-29 00:00:00 ENCPL 2Z4O26B 2020-06-29 00:00:00 ENCPL 0Z3X90D 2020-06-29 00:00:00 ENCPL 8V3Z85I 2020-06-29 00:00:00 ENCPL 1S1P84Y 2020-06-29 00:00:00 ENCPL 5F1Z19N 2020-06-29 00:00:00 ENCPL 3A8S77L 2020-06-29 00:00:00 ENCPL 1R3K33O 2020-06-29 00:00:00 ENCPL 4C3K09E 2020-06-29 00:00:00 ENCPL 4S1E44U 2020-06-29 00:00:00 ENCPL 3F4Y49B 2020-03-05 00:00:00 ENCPL 9E7K61G 2020-03-05 00:00:00 ENCPL 6C1C32Z 2020-03-05 00:00:00 ENCPL 7F9G16S 2020-03-05 00:00:00 ENCPL 4C8F10D 2020-03-05 00:00:00 ENCPL 8Z0R93O 2020-03-05 00:00:00 ENCPL 5X1N13G 2020-03-05 00:00:00 ENCPL 4V9C94X 2020-03-05 00:00:00 ENCPL 3P9U34R 2020-03-05 00:00:00 ENCPL 0T0I97Q 2020-03-05 00:00:00 ENCPL 9A6V19V 2020-03-05 00:00:00 ENCPL 2K8X84E 2020-03-05 00:00:00 ENCPL 4T4I26F 2020-03-05 00:00:00 ENCPL 2V6J45C 2020-03-05 00:00:00 ENCPL 5P3Z20P 2020-03-05 00:00:00 ENCPL 8D2H54A 2020-03-05 00:00:00 ENCPL 9C8B69P 2020-03-05 00:00:00 ENCPL 1F3N14K 2020-03-05 00:00:00 ENCPL 9Y7Y01J 2020-03-05 00:00:00 ENCPL 1G7M15O 2020-03-05 00:00:00 ENCPL 3Z9V40X 2020-03-05 00:00:00 ENCPL 7V7B75G 2019-01-08 00:00:00 ENCPL 6B1J66J 2019-01-08 00:00:00 ENCPL 2Q7E43E 2019-01-08 00:00:00 ENCPL 5R4V08E 2019-01-08 00:00:00 ENCPL Encounters Start End Encounter Admission Attending Care Care Encounter Source Date/Time Date/Time Type Type Clinicians Facility Department ID 2020-07-06 Outpatient CHA SHANNONCLR [facility] [id number] [facility] 21:26:21 N MELVIN 2020-02-26 Inpatient ER DAM[facility]IS [facility] [id number] [facility] 23:10:00 DELANEY 2021-10-23 2021-10-23 [id number] [place] 00:00:00 00:00:00 [facility] 2021-10-09 2021-10-09 Outpatient BOBBY [facility] [id number] [place] 00:00:00 00:00:00 [facility] 2021-09-05 2021-09-05 Outpatient [facility] [id number] [place] 00:00:00 00:00:00 [facility] 2021-07-31 2021-07-31 Outpatient JOSE MIGUEL BARRY [facility] [id number] [place] 00:00:00 00:00:00 [facility] 2021-07-21 2021-07-21 Outpatient EL MARQUEZ, [facility] [id number] [facility] 00:00:00 00:00:00 [facility] 2021-07-19 2021-07-19 Outpatient EL [facility] [id number] [facility] 07:19:43 07:19:43 2021-07-17 2021-07-17 Outpatient [facility] [id number] [place] 12:03:08 12:07:37 Health 2021-07-17 2021-07-17 Outpatient BOBBY [facility] [id number] [place] 09:04:13 11:23:22 [facility] 2021-07-17 2021-07-17 Outpatient JOSE MIGUEL BARRY [facility] [id number] [place] 08:46:08 09:12:52 Health 2021-07-17 2021-07-17 Outpatient ALEJANDRINA [facility] [id number] [place] 00:00:00 00:00:00 JOSE GUILLERMO 2021-07-17 2021-07-17 Outpatient HARRIETT [facility] [id number] [place] 00:00:00 00:00:00 [facility] 2021-07-10 2021-07-10 Outpatient JOSE MIGUEL BARRY [facility] [id number] [place] 00:00:00 00:00:00 [facility] 2021-07-03 2021-07-03 Outpatient JOSE MIGUEL BARRY [facility] [id number] [place] 07:40:01 14:04:21 [facility] 2021-07-03 2021-07-03 Outpatient JONATHANDINORAEstee [facility] [id number] [place] 08:05:52 08:18:57 [facility] 2021-07-03 2021-07-03 Outpatient 3 [facility] [id number] [place] 08:05:52 08:18:57 [facility] 2021-07-03 2021-07-03 Outpatient JUDD [facility] [id number] [place] 00:00:00 00:00:00 [facility] 2021-07-03 2021-07-03 Outpatient LORENZANA, [facility] [id number] [place] 00:00:00 00:00:00 [facility] 2021-06-26 2021-06-26 Outpatient JOSE MIGUEL BARRY [facility] [id number] [place] 07:54:30 08:35:16 [facility] 2021-06-12 2021-06-12 Outpatient JOSE MIGUEL BRARY [facility] [id number] [place] 07:56:03 08:33:36 [facility] 2021-05-29 2021-05-29 Outpatient JOSE MIGUEL BARRY [facility] [id number] [place] 08:28:20 09:29:41 [facility] 2021-05-15 2021-05-15 Outpatient JOSE MIGUEL BARRY [facility] [id number] [place] 08:03:38 08:31:36 [facility] 2021-05-01 2021-05-01 Outpatient [facility] [id number] [place] 08:40:51 08:46:27 [facility] 2021-05-01 2021-05-01 Outpatient JOSE MIGUEL BARRY [facility] [id number] [place] 08:04:58 08:32:39 [facility] 2021-05-01 2021-05-01 Outpatient DANIELLE [facility] [id number] [place] 00:00:00 00:00:00 [facility] 2021-04-24 2021-04-24 Outpatient JOSE MIGUEL BARRY [facility] [id number] [place] 08:03:45 08:22:54 [facility] 2021-04-17 2021-04-17 Outpatient JOSE MIGUEL BARRY [facility] [id number] [place] 08:38:35 08:58:58 [facility] 2021-04-10 2021-04-10 Outpatient FRANCESCO [facility] [id number] [place] 00:00:00 00:00:00 [facility] 2021-03-27 2021-03-27 Outpatient DANIELLE [facility] [id number] [place] 12:10:09 12:36:55 [facility] 2021-03-27 2021-03-27 Outpatient JOSE MIGUEL BARRY [facility] [id number] [place] 09:45:17 10:13:09 [facility] 2021-03-07 2021-03-07 Outpatient JOSE MIGUEL BARRY [facility] [id number] [place] 12:04:05 12:23:09 [facility] 2021-02-20 2021-02-20 Outpatient [facility] [id number] [place] 08:34:14 08:39:27 [facility] 2021-02-20 2021-02-20 Outpatient JOSE MIGUEL BARRY [facility] [id number] [place] 08:09:20 08:34:30 [facility] 2021-02-20 2021-02-20 [facility] [id number] [place] 00:00:00 00:00:00 [facility] 2021-02-19 2021-02-19 Emergency [facility] [id number] [place] 00:00:00 00:00:00 KRISTI [facility] 2021-02-06 2021-02-06 Outpatient [facility] [id number] [place] 09:14:10 09:17:27 [facility] 2021-02-06 2021-02-06 Outpatient JOSE MIGUEL BARRY [facility] [id number] [place] 08:49:54 09:14:22 [facility] 2021-02-06 2021-02-06 Outpatient DANIELLE [facility] [id number] [place] 00:00:00 00:00:00 [facility] 2021-02-06 2021-02-06 Outpatient JUDD [facility] [id number] [place] 00:00:00 00:00:00 [facility] 2021-01-23 2021-01-23 Outpatient DANIELLE [facility] [id number] [place] 11:31:24 12:44:32 [facility] 2021-01-23 2021-01-23 Outpatient JOSE MIGUEL BARRY [facility] [id number] [place] 10:14:28 10:36:06 [facility] 2021-01-10 2021-01-10 Outpatient JOSE MIGUEL BARRY [facility] [id number] [place] 07:22:07 11:41:14 [facility] 2021-01-09 2021-01-09 Outpatient [facility] [id number] [place] 09:13:08 09:20:36 [facility] 2021-01-09 2021-01-09 Outpatient HARRIETT, [facility] [id number] [place] 08:19:59 09:12:38 [facility] 2021-01-09 2021-01-09 Outpatient JESSICA, [facility] [id number] [place] 00:00:00 00:00:00 [facility] 2021-01-09 2021-01-09 Outpatient HARRIETT, [facility] [id number] [place] 00:00:00 00:00:00 [facility] 2021-01-04 2021-01-04 Outpatient JOSE MIGUEL BARRY [facility] [id number] [place] 11:36:44 12:43:02 [facility] 2021-01-02 2021-01-02 Outpatient JOSE MIGUEL BARRY [facility] [id number] [place] 07:27:21 12:04:53 [facility] 2021-01-02 2021-01-02 Outpatient JOSE MIGUEL BARRY [facility] [id number] [place] 00:00:00 00:00:00 [facility] 2020-12-30 2020-12-30 Outpatient [facility] [id number] [place] 00:00:00 00:00:00 [facility] 2020-12-19 2020-12-19 Outpatient JOSE MIGUEL BARRY [facility] [id number] [place] 09:18:35 09:59:02 [facility] 2020-12-16 2020-12-16 [facility] [id number] [place] 10:25:40 10:35:40 [facility] 2020-12-16 2020-12-16 Outpatient JESSICA, [facility] [id number] [place] 00:00:00 00:00:00 [facility] 2020-11-28 2020-11-28 Emergency X VENITA, [facility] [id number] [facility] 22:52:00 22:52:00 JAMIL [facility] 2020-11-24 2020-11-24 [facility] [id number] [place] 13:25:44 13:59:48 [facility] 2020-11-10 2020-11-10 Outpatient RUPERTO, [facility] [id number] [place] 00:00:00 00:00:00 [facility] 2020-11-09 2020-11-09 Outpatient JONNY MON [facility] [id number] [place] 07:51:58 08:14:33 Health 2020-10-27 2020-10-27 Outpatient RUPERTO, [facility] [id number] [place] 12:02:34 12:25:02 [facility] 2020-10-20 2020-10-20 Outpatient RUPERTO, [facility] [id number] [place] 00:00:00 00:00:00 [facility] 2020-10-20 2020-10-20 Outpatient RUPERTO, [facility] [id number] [place] 00:00:00 00:00:00 [facility] 2020-10-06 2020-10-06 Outpatient RUPERTO, [facility] [id number] [place] 11:11:47 11:11:47 [facility] 2020-07-08 2020-07-08 Outpatient CHRISTOS, [facility] [id number] [facility] 08:37:00 08:37:00 MELVIN [facility] 2020-05-09 2020-06-28 Inpatient VO, [facility] [id number] [place] 00:00:00 00:00:[address] 2020-04-21 2020-04-21 Emergency ER [facility] Emergency [id number] [facility] 20:49:00 20:49:00 2019-11-09 2019-11-09 Outpatient [facility] [address] [place] [id number] 08:51:00 08:51:00 2019-09-12 2019-09-12 Emergency MUÑOZ, [facility] [id number] [place] 00:00:00 00:00:00 [facility] 2017-11-18 2017-11-20 Inpatient C AMIE, [id number] 13:43:00 13:54:00 [facility] 2017-11-07 2017-11-07 Emergency E [facility] [id number] [facility] 20:22:00 20:22:00 [facility] 2017-10-06 2017-10-06 Emergency E ELIANA, [facility] [id number] [facility] 14:25:00 14:25:00 [facility] Results Test Description Test Time Test Comments Results Result Comments Source SARS-COV2/RT-PCR ([facility]) 2021-07-19 20:41:44 Test Item Value Reference Range Interpretation Comme nts SARS-COV2/RT-PCR (test code = 2532099) Negative Negative Negative result for this test determines that [...] occur if a specimen is improperly collected, transported, or handled. A false negative result should be considered if patient's recent exposures or clinical presentation indicate that COVID-19 (SARS-CoV-2) is likely and diagnostic tests for other causes of illness are negative. Re-testing should be considered in cases of suspected false negatives.The limit of detection for this assay is 100 copies/mL.This SARS-CoV-2 test is a real-time RT_PCR test intended for the qualitative detection of [...] the FDA, the issued EUA will be e ffective until the declaration that circumstances exist justifying the authorization of the emergency use of in vitro diagnostic tests for detection and/or diagnosis of COVID-19 is terminated under Section 564(b)(2) of the Act or the EUA is revoked under Section 564(g) of the Act.Testing was performedusing the [employer] SARS-CoV-2 assay.Fact Sheet for Healthcare Providers:https://www.[employer]Conic.chairez/emerita/RT SARS-CoV-2 HCP Fact Sheet 51- 586210.pdfFact Sheet for Healthcare Patients:https://www.BlueConic.chairez/emerita/RT SARS-CoV-2 Patient Fact Sheet EN 51-738210J7.pdfHIV1 RNA # Plas RADHA DL=20 2021-07-05 16:15:28 Test Item Value Reference Range Interpretation Comments HIV1 RNA SerPl Ql RADHA+probe NOT DETECTED Not detected (test code = 51959-6) This test utilizes FDA cleared ERICH AmpliPrep/ERICH TaqMan HIV-1 test 2.0 from [employer] which allows quantitation of viral loads between [...] patients with HIV-1 infection. CD4+CD8+ Cells NFr [id number] 13:12:03 Test Item Value Reference Range Interpretation Comments T-cell CD4 subset 480 cells/uL See_Comment [Automate d message] pnl Bld (test code The syste m which = 30541-3) generated this result transmitted ref erence range: 431-1,62 3. The reference range was not used to interpr et this result as normal/abnormal . CD3+CD4+ 1.54 ratio 0.86-2.05 Cells/CD3+CD8+ Cells Bld (test code = 92076-9) CD4+CD8+ Cells NFr 40.0 % 25.0-56.0 Bld (test code = 85955-1) RPR [id number]-[id number] 14:32:36 Test Item Value Reference Range Interpretation Comments T pallidum Ab Ser Ql Aggl (test NEGATIVE Negative, Equivocal code = 37012-5) Reagin+T pallidum IgG+IgM NEGATIVE Negative SerPl-Imp (test code = 58079-2) AG HEPATITIS B [id number] 11:26:00 Test Item Value Reference Range Interpretation Comments AG HEPATITIS B SURFACE (test NEGATIVE SCREEN NEGATIVE code = HBSAG) AB HEPATITIS A [id number] 03:08:00 Test Item Value Reference Range Interpretation Comments AB HEPATITIS A IGM (test code = HAVMAB) AB HEPATITIS B [id number] 03:08:00 Test Item Value Reference Range Interpretation Comments AB HEPATITIS B SURFACE 96.5 mIU/mL Immunity>9.9 Sta tus of Immunity (test code = HBSAB) Anti-HBs Level --- I ncons istent with Imm unity 0.0 - 9.9Consis tent with Immunity >9.9 AB HEPATITIS A [id number] 03:08:00 Test Item Value Reference Range Interpretation Comments AB HEPATITIS A IGM Negative Negative Performed At: HD (test code = HAVMAB) [facility] [address] [place], [place] [id number] lauren Chapman MD Ph:[phone] AB HEPATITIS B [id number] 03:08:00 Test Item Value Reference Range Interpretation Comments AB HEPATITIS B SURFACE 96.5 mIU/mL Immunity>9.9 Sta tus of Immunity (test code = HBSAB) Anti-HBs Level --- I ncons istent with Imm unity 0.0 - 9.9Consis tent with Immunity >9.9 COVID 19 Asymptomatic IH [id number] 09:05:00 Test Item Value Reference Range Interpretation [...] in Respiratory specimen by RADHA with probe [id number] 10:30:29 Test Item Value Reference Range Interpretation Comments SARS-CoV-2 (COVID-19) RNA Not detected Not-Detected [Presence] in Respiratory specimen by RADHA with probe detection (test code = 48016-4) SARS-CoV-2 (COVID-19) RNA [Presence] in Respiratory specimen by RADHA with probe [id number] 18:12:42 Test Item Value Reference Range Interpretation Comments SARS-CoV-2 (COVID-19) RNA Not detected Not-Detected [Presence] in Respiratory specimen by RADHA with probe detection (test code = 34451-9) SARS-CoV-2 (COVID-19) RNA [Presence] in Respiratory specimen by RADHA with probe [id number] 12:55:22 Test Item Value Reference Range Interpretation Comments SARS-CoV-2 (COVID-19) RNA Not detected Not-Detected [Presence] in Respiratory specimen by RADHA with probe detection (test code = 92248-6) SARS-CoV-2 (COVID-19) RNA [Presence] in Respiratory specimen by RADHA with probe [id number] 23:46:30 Test Item Value Reference Range Interpretation Comments SARS-CoV-2 (COVID-19) RNA Not detected Not-Detected [Presence] in Respiratory specimen by RADHA with probe detection (test code = 61922-0) TROPONIN [id number] 23:28:00 Test Item Value Reference Range Interpretation [...] failure, acidosis, acute neurological disease, and persistent tachyarrhythmia.[employer] ID - PIAYA LBASIC METABOLIC [id number] 23:26:00 Test Item Value Reference Range Interpretation [...] S NOT APPLICABLE FOR DIALYSIS PATIEN TS. [employer] JOSE ODEN LB-TYPE NATRIURETIC FACTOR (BNP)2020-04-21 23:25:00 Test Item Value Reference Range Interpretation Comments B-TYPE NATRIURETIC PEPTIDE 1507 pg/mL 0-100 H (BEAKER) (test code = 700) [employer] JOSE ODEN LPT/[id number] 23:09:00 Test Item Value Reference Range Interpretation [...] mechanical heart valves.CBC W/PLT COUNT & AUTO [id number] 22:49:00 Test Item Value Reference Range Interpretation [...] (test code = 2801) RAD, CHEST, 2 [id number] 22:26:00Reason for exam:->SHORTNESS OF BREATH FINAL REPORT [...] No acute abnormality.Additional findings: None. Signed: Edenilson Gutierrezeport Verified Date/Time: 04/21/2020 22:26:38 POCT-GLUCOSE [id number] 15:36:00 Test Item Value Reference Range Interpretation Comments POC-GLUCOSE METER 133 mg/dL 70-110 H : TESTED A T [facility] 6720 (BEAKER) (test code = [facility], 1538) 41956: [employer]/Techni kush ID = [id number] for Wi lliams, Areiona POCT-GLUCOSE [id number] 12:38:00 Test Item Value Reference Range Interpretation Comments POC-GLUCOSE METER 100 mg/dL 70-110 : TESTED A T [facility] 6720 (BEAKER) (test code = [facility], 1538) 82993: [employer]/Techni kush ID = [id number] for Wi lliams, Areiona [id number] 09:28:00 Test Item Value Reference Range Interpretation Comments PARTIAL THROMBOPLASTIN TIME 67.8 seconds 22.5-36.0 H (BEAKER) (test code = 760) [id number] 07:14:00 Test Item Value Reference Range Interpretation Comments PARTIAL THROMBOPLASTIN TIME 146.9 seconds 22.5-36.0 H (BEAKER) (test code = 760) CBC W/PLT COUNT & AUTO [id number] 05:40:00 Test Item Value Reference Range Interpretation [...] (BEAKER) (test code = 2801) BASIC METABOLIC [id number] 05:24:00 Test Item Value Reference Range Interpretation [...] S NOT APPLICABLE FOR DIALYSIS PATIEN TS. [employer] ID - LORENZO WPROTHROMBIN TIME/[id number] 04:52:00 Test Item Value Reference Range Interpretation [...] mg/dL 70-110 H : [facility] 6720 (BEAKER) (test code = [facility], 1538) 17312: [employer]/Techni kush ID = [id number] for KATIA RAO [id number] 21:05:00 Test Item Value Reference Range Interpretation Comments PARTIAL THROMBOPLASTIN TIME 66.8 seconds 22.5-36.0 H (BEAKER) (test code = 760) [id number] 19:49:00 Test Item Value Reference Range Interpretation Comments PARTIAL THROMBOPLASTIN TIME > seconds 22.5-36.0 HH (BEAKER) (test code = 760) POCT-GLUCOSE [id number] 17:09:00 Test Item Value Reference Range Interpretation Comments POC-GLUCOSE METER 145 mg/dL 70-110 H : TESTED A T [facility] 6720 (BEAKER) (test code = [facility], 1538) 08769: [employer]/Techni kush ID = [id number] for Christina Chisholm POCT-GLUCOSE [id number] 12:10:00 Test Item Value Reference Range Interpretation Comments POC-GLUCOSE METER 113 mg/dL 70-110 H : TESTED A T [facility] 6720 (BEAKER) (test code = [facility], 1538) 05440: [employer]/Techni kush ID = [id number] for Christina Chisholm [id number] 11:50:00 Test Item Value Reference Range Interpretation Comments PARTIAL THROMBOPLASTIN TIME 96.6 seconds 22.5-36.0 H (BEAKER) (test code = 760) POCT-GLUCOSE [id number] 08:28:00 Test Item Value Reference Range Interpretation Comments POC-GLUCOSE METER 150 mg/dL 70-110 H : TESTED A T [facility] 6720 (BEAKER) (test code = [facility], 1538) 55262: [employer]/Techni kush ID = [id number] for Christina Chisholm BASIC METABOLIC [id number] 06:15:00 Test Item Value Reference Range Interpretation [...] S NOT APPLICABLE FOR DIALYSIS PATIEN TS. [employer] ID - BSCBC W/PLT COUNT & AUTO [id number] 06:12:00 Test Item Value Reference Range Interpretation [...] 0-1 PERCENT (BEAKER) (test code = 2801) [id number] 05:43:00 Test Item Value Reference Range Interpretation Comments PARTIAL THROMBOPLASTIN TIME 61.8 seconds 22.5-36.0 H (BEAKER) (test code = 760) PROTHROMBIN TIME/[id number] 05:42:00 Test Item Value Reference Range Interpretation [...] mg/dL 70-110 H : TESTED A T [facility] 6720 (BEAKER) (test code = [facility], 1538) 37108: [employer]/Techni kush ID = [id number] for AN BENITA ERNANDEZ [id number] 22:49:00 Test Item Value Reference Range Interpretation Comments PARTIAL THROMBOPLASTIN TIME 86.0 seconds 22.5-36.0 H (BEAKER) (test code = 760) [id number] 15:29:00 Test Item Value Reference Range Interpretation [...] INR is2.5-3.5 for patients wiht mechanical heart valves.[id number] 15:29:00 Test Item Value Reference Range Interpretation Comments PARTIAL THROMBOPLASTIN TIME 90.0 seconds 22.5-36.0 H (BEAKER) (test code = 760) BASIC METABOLIC [id number] 12:20:00 Test Item Value Reference Range Interpretation [...] S NOT APPLICABLE FOR DIALYSIS PATIEN TS. [employer] ID - ANTONIA FCBC W/PLT COUNT & AUTO [id number] 07:29:00 Test Item Value Reference Range Interpretation [...] 0-1 PERCENT (BEAKER) (test code = 2801) [id number] 07:20:00 Test Item Value Reference Range Interpretation Comments PARTIAL THROMBOPLASTIN TIME 61.2 seconds 22.5-36.0 H (BEAKER) (test code = 760) While on warfarin.BASIC METABOLIC [id number] 07:06:00 Test Item Value Reference Range Interpretation [...] S NOT APPLICABLE FOR DIALYSIS PATIEN TS. [employer] ID - BATCHELOR FPROTHROMBIN TIME/[id number] 06:37:00 Test Item Value Reference Range Interpretation [...] for patients wiht mechanical heart valves.While on warfarin.[id number] 23:03:00 Test Item Value Reference Range Interpretation Comments PARTIAL THROMBOPLASTIN TIME 54.4 seconds 22.5-36.0 H (BEAKER) (test code = 760) POCT-GLUCOSE [id number] 22:30:00 Test Item Value Reference Range Interpretation Comments POC-GLUCOSE METER 96 mg/dL 70-110 : TESTED A T [facility] 6720 (BEAKER) (test code = FOSTER Paul [facility], 1538) [id number]: [employer]/Techni kush ID = [id number] for BENITA MASSEY POCT-GLUCOSE [id number] 15:59:00 Test Item Value Reference Range Interpretation Comments POC-GLUCOSE METER 133 mg/dL 70-110 H : TESTED A T [facility] 6720 (BEAKER) (test code = FOSTER Paul [facility], 1538) [id number]: [employer] Furniture/Techni kush ID = [id number] for Phyllis Rao [id number] 15:38:00 Test Item Value Reference Range Interpretation Comments PARTIAL THROMBOPLASTIN TIME 88.8 seconds 22.5-36.0 H (BEAKER) (test code = 760) POCT-GLUCOSE [id number] 12:08:00 Test Item Value Reference Range Interpretation Comments POC-GLUCOSE METER 130 mg/dL 70-110 H : TESTED A T [facility] 6720 (BEAKER) (test code = [facility] Humberto [facility], 1538) 11207: [employer] Furn[employer]/Techni kush ID = [id number] for Phyllis Rao PROTHROMBIN TIME/[id number] 11:48:00 Test Item Value Reference Range Interpretation [...] INR is2.5-3.5 for patients wiht mechanical heart valves.[id number] 09:34:00 Test Item Value Reference Range Interpretation Comments PARTIAL THROMBOPLASTIN TIME 74.6 seconds 22.5-36.0 H (BEAKER) (test code = 760) CBC W/PLT COUNT & AUTO [id number] 01:34:00 Test Item Value Reference Range Interpretation [...] (BEAKER) (test code = 2801) BASIC METABOLIC [id number] 01:29:00 Test Item Value Reference Range Interpretation [...] S NOT APPLICABLE FOR DIALYSIS PATIEN TS. [employer] ID - PIJESSE [id number] 01:13:00 Test Item Value Reference Range Interpretation Comments PARTIAL THROMBOPLASTIN TIME 56.4 seconds 22.5-36.0 H (BEAKER) (test code = 760) POCT-GLUCOSE [id number] 23:59:00 Test Item Value Reference Range Interpretation Comments POC-GLUCOSE METER 134 mg/dL 70-110 H : TESTED A T [facility] 6720 (BEAKER) (test code = [place], 1538) 584[address]: [employer] Furn[employer]/Techni kush ID = [id number] for SCOOTER MIRZA [id number] 18:52:00 Test Item Value Reference Range Interpretation Comments PARTIAL THROMBOPLASTIN TIME 47.3 seconds 22.5-36.0 H (BEAKER) (test code = 760) [id number] 18:18:00 Test Item Value Reference Range Interpretation Comments PARTIAL THROMBOPLASTIN TIME > seconds 22.5-36.0 HH (BEAKER) (test code = 760) POCT-GLUCOSE [id number] 18:15:00 Test Item Value Reference Range Interpretation Comments POC-GLUCOSE METER 143 mg/dL 70-110 H : TESTED A T [facility] 6720 (BEAKER) (test code = [facility], 1538) 82175: [employer]/Techni kush ID = [id number] for DO BBINS, RANDI POCT-GLUCOSE [id number] 12:15:00 Test Item Value Reference Range Interpretation Comments POC-GLUCOSE METER 123 mg/dL 70-110 H : TESTED A T [facility] 6720 (BEAKER) (test code = [facility], 1538) 90930: [employer]/Techni kush ID = [id number] for DO BBINS, RANDI [id number] 11:28:00 Test Item Value Reference Range Interpretation Comments PARTIAL THROMBOPLASTIN TIME 57.3 seconds 22.5-36.0 H (BEAKER) (test code = 760) POCT-GLUCOSE [id number] 06:49:00 Test Item Value Reference Range Interpretation Comments POC-GLUCOSE METER 86 mg/dL 70-110 : TESTED A T [facility] 6720 (BEAKER) (test code = [facility], 1538) 25955: [employer]/Techni kush ID = [id number] for BRITNEY SCOOTER ESPINAL BASIC METABOLIC [id number] 06:19:00 Test Item Value Reference Range Interpretation [...] S NOT APPLICABLE FOR DIALYSIS PATIEN TS. [employer] ID - PIAYA LCBC W/PLT COUNT & AUTO [id number] 04:57:00 Test Item Value Reference Range Interpretation [...] PERCENT (BEAKER) (test code = 2801) POCT-GLUCOSE [id number] 02:25:00 Test Item Value Reference Range Interpretation Comments POC-GLUCOSE METER 69 mg/dL 70-110 L : TESTED A T [facility] 6720 (BEAKER) (test code = [facility] [employer] [facility], 1538) 04267: [employer]/Techni kush ID = [id number] for VALE H, RADHA FL, FLUORO, NON-SPECIFIC, UP TO 1 [id number] 01:47:00Reason for exam:- >orif right femurFluoroscopic unit utilized for a procedure performed in the OR. No interpretation was requested. Refer to the operative report for findings. Refer to PACS for patient radiation dose information.[id number] 20:21:00 Test Item Value Reference Range Interpretation Comments PARTIAL THROMBOPLASTIN TIME 41.1 seconds 22.5-36.0 H (BEAKER) (test code = 760) 6 hours after starting heparin infusion and as indicated per sliding scalePOCT- GLUCOSE [id number] 17:57:00 Test Item Value Reference Range Interpretation Comments POC-GLUCOSE METER 82 mg/dL 70-110 : TESTED A T [facility] 6720 (BEAKER) (test code = [facility] [employer] [place], 1538) [address]: [employer]/Techni kush ID = [id number] for ALMA DELIA PATHAK [id number] 17:14:00 Test Item Value Reference Range Interpretation Comments FERRITIN (BEAKER) (test code = 5182.19 ng/mL 5.00-275.00 H 361) [employer] ID - JOEL BEASLEY, TIBC, % SAT. (WITHOUT FERRITIN)2020-02-27 16:01:00 Test Item Value Reference Range Interpretation Comments IRON (BEAKER) (test code = 547) 125.0 ug/dL 40.0-160.0 TOTAL IRON BINDING CAPACITY 219 ug/dL 250-450 L (BEAKER) (test code = 769) IRON % SATURATION (2) (BEAKER) 57 % 20-55 H (test code = 2590) [employer] ID Patel MALDONADO [id number] 12:54:00 Test Item Value Reference Range Interpretation Comments PARTIAL THROMBOPLASTIN TIME 41.5 seconds 22.5-36.0 H (BEAKER) (test code = 760) Prior to initiating heparinPLATELET [id number] 12:51:00 Test Item Value Reference Range Interpretation Comments PLATELET COUNT (BEAKER) (test 116 K/CU MM 150-450 L code = 756) [employer] ID - [id number] clotSARS-COV2/RT-PCR ([facility])2020-02-27 12:46:00 Test Item Value Reference Range Interpretation Comments SARS-COV2/RT-PCR (test code = Negative Not Detected, Negative 1435222) SARS-COV-2 PERFORMING LAB [facility] (test code = 2545505) Negative result for this test determines that [...] 564(g) of the Act.Fact Sheet for Healthcare Providers:https://www.Catawiki/sites/default/files/product/documents/Fact_Shee w_SP_Ggltevwuf_Ppbb_NKNM-KtG-0.pdfFact Sheet for Healthcare Patients:https://www.Catawiki/sites/default/files/product/ documents/Hsgj_Dozgd_Usrzyzrc_Tkkd_MQQI-RjO-1.pdfPerforming Laboratory:[facility], [place] [address]LEKG-XVYVWJE METER 2020-02-27 12:12:00 Test Item Value Reference Range Interpretation Comments POC-GLUCOSE METER 90 mg/dL 70-110 : TESTED A T [facility] 6720 (JARROD) (test code = FOSTER Paul [facility], 1538) 11574: [employer]/Techni kush ID = [id number] for SELENA BIRCH HEPATITIS B SURFACE [id number] 11:32:00 Test Item Value Reference Range Interpretation Comments HEPATITIS B SURFACE ANTIGEN (2) Nonreactive Nonreactive (GAELAKER) (test code = 2585) Specimen is considered negative for HBsAg.RAD, WRIST, 2 VIEWS, [id number] 09:19:00Reason for exam:->fall, immbolityFINAL REPORT TECHNIQUE: Frontal, oblique, and lateral views of the left wrist. INDICATION: Fall immobility. COMPARISON: None. FINDINGS:No acute fractures or dislocations.Joint spaces are within normal limits.There are atherosclerotic calcifications of the vessels. Surgical clipsproject over the distal radius.. IMPRESSION:No acute osseous abnormality. Signed: Bhavin Artis Verified Date/Time: 02/27/2020 09:19:08 Reading Location: [facility] C013Y CT Body ReadingRoom [id number] 08:30:00 Test Item Value Reference Range Interpretation Comments POTASSIUM (BEAKER) (test code = 5.0 meq/L 3.5-5.1 379) [employer] ID - PIAYA LRAD, PELVIS, 1 OR 2 [id number] 07:23:00Reason for exam:->femoral neck fxFINAL REPORT RAD, [...] Lisa Verified Date/Time: 02/27/2020 07:23:52 Reading Location: [address] Neuro Reading Room RAD, HIP, 2 VIEWS, [id number] 07:23:00Reason for exam:- >femoral neck fractureFINAL REPORT [...] Lisa Verified Date/Time: 02/27/2020 07:23:52 Reading Location: [address] Neuro Reading Room POCT-GLUCOSE [id number] 06:26:00 Test Item Value Reference Range Interpretation Comments POC-GLUCOSE METER 72 mg/dL 70-110 : TESTED A T [facility] 6720 (JARROD) (test code = [place], 1538) 055[address]: [employer] Furn[employer]/Techni kush ID = [id number] for SCOOTER MAYA COMPREHENSIVE METABOLIC [id number] 02:44:00 Test Item Value Reference Range Interpretation [...] S NOT APPLICABLE FOR DIALYSIS PATIEN TS. [employer] ID - PIAYA LPROTHROMBIN TIME/[id number] 02:03:00 Test Item Value Reference Range Interpretation [...] INR is2.5-3.5 for patients wiht mechanical heart valves.[id number] 01:56:00 Test Item Value Reference Range Interpretation Comments PHOSPHORUS (BEAKER) (test code = 7.3 mg/dL 2.3-4.7 H 604) [employer] ID Patel ODEN [id number] 01:56:00 Test Item Value Reference Range Interpretation Comments MAGNESIUM (BEAKER) (test code = 1.9 mg/dL 1.6-2.6 627) [employer] ID - AKSHAT LCBC W/PLT COUNT & AUTO [id number] 01:33:00 Test Item Value Reference Range Interpretation [...] (test code = 2801) AFB CULTURE + [id number] 07:33:00 Test Item Value Reference Range Interpretation Comments CULTURE (BEAKER) (test No acid-fast bacilli code = 1095) isolated in 42 days AFB SMEAR (BEAKER) No acid fast bacilli (test code = 994) seen FUNGUS CULTURE + [id number] 17:26:00 Test Item Value Reference Range Interpretation Comments CULTURE (BEAKER) (test No fungus isolated in code = 1095) 28 days FUNGUS SMEAR (BEAKER) No fungi seen (test code = 1406) PROTHROMBIN [id number] 00:05:00 Test Item Value Reference Range Interpretation Comments PT PATIENT (test code = PTP) 18.2 SECONDS 9.3-12.9 H INTERNATIONAL NORMAL RATIO 1.57 INR Unit 0.8-1.2 H (test code = INR) POCT-GLUCOSE [id number] 13:35:00 Test Item Value Reference Range Interpretation Comments POC-GLUCOSE METER 116 mg/dL 70-110 H TESTED AT [facility] 6720 ([facility]) (test code = [place] 1538) [address] POCT-GLUCOSE [id number] 08:54:00 Test Item Value Reference Range Interpretation Comments POC-GLUCOSE METER 99 mg/dL 70-110 TESTED AT [facility] 6720 ([facility]) (test code = [place] [address] 1538) [id number] 06:34:00 Test Item Value Reference Range Interpretation Comments PARTIAL THROMBOPLASTIN TIME 46.7 seconds 22.5-36.0 H (BEAKER) (test code = 760) While on warfarin.PROTHROMBIN TIME/[id number] 06:33:00 Test Item Value Reference Range Interpretation [...] code = 412) PLATELET COUNT (AKER) (test 148 K/CU MM 150-450 L code = 756) MEAN PLATELET VOLUME (BEAKER) 9.2 fL 9.4-12.4 L (test code = 754) NUCLEATED RED BLOOD CELLS 1 /100 WBC 0-0 H ([facility]) (test code = 413) POCT-GLUCOSE [id number] 21:38:00 Test Item Value Reference Range Interpretation Comments POC-GLUCOSE METER 192 mg/dL 70-110 H TESTED AT [place] [address] ([facility]) (test code = FOSTER Paul [facility] 1538) [address] POCT-GLUCOSE [id number] 13:01:00 Test Item Value Reference Range Interpretation Comments POC-GLUCOSE METER 200 mg/dL 70-110 H TESTED AT [place] [address] ([facility]) (test code = FOSTER Paul [facility] 1538) [address] POCT-GLUCOSE [id number] 08:00:00 Test Item Value Reference Range Interpretation Comments POC-GLUCOSE METER 123 mg/dL 70-110 H TESTED AT [place] [address] ([facility]) (test code = FOSTER Paul [facility] 1538) [address] [id number] 06:40:00 Test Item Value Reference Range Interpretation Comments PARTIAL THROMBOPLASTIN TIME 83.1 seconds 22.5-36.0 H ([facility]) (test code = 760) [id number] 05:54:00 Test Item Value Reference Range Interpretation Comments PARTIAL THROMBOPLASTIN TIME > seconds 22.5-36.0 HH ([facility]) (test code = 760) PROTHROMBIN TIME/[id number] 05:30:00 Test Item Value Reference Range Interpretation [...] (BEAKER) (test code = 413) BASIC METABOLIC [id number] 05:10:00 Test Item Value Reference Range Interpretation [...] APPLICABLE FOR DIALYSIS PATIEN TS. OCCULT BLOOD, [id number] 23:46:00 Test Item Value Reference Range Interpretation Comments FECAL OCCULT BLOOD ([facility]) (test Negative Negative code = 618) POCT-GLUCOSE [id number] 22:52:00 Test Item Value Reference Range Interpretation Comments POC-GLUCOSE METER 192 mg/dL 70-110 H TESTED AT [place] [address] ([facility]) (test code = FOSTER Paul [facility] 1538) [address] POCT-GLUCOSE [id number] 17:11:00 Test Item Value Reference Range Interpretation Comments POC-GLUCOSE METER 149 mg/dL 70-110 H TESTED AT [place] [address] ([facility]) (test code = FOSTER Paul [facility] 1538) [address] PROTHROMBIN [id number] 13:00:00 Test Item Value Reference Range Interpretation Comments PROTIME (BEZOILA) (test code = 19.9 seconds 11.7-14.7 H 759) INR ([facility] (test code = 370) 1.8 <=5.9 RECOMMENDED COUMADIN/WARFARIN INR THERAPY RANGESSTANDARD DOSE: 2.0 - 3.0 Includes: PROPHYLAXIS forvenous thrombosis, systemic embolization; TREATMENT for venous thrombosis and/or pulmonary embolus.HIGH RISK: Target INR is 2.5-3.5 for patients with mechanical heart valves.While on warfarin.POCT-GLUCOSE METER 2019-01-04 12:14:00 Test Item Value Reference Range Interpretation Comments POC-GLUCOSE METER 134 mg/dL 70-110 H TESTED AT [place] [address] ([facility]) (test code = [place] Paul [place] 1538) [address] RAD, CHEST, 1 VIEW, NON [id number] 08:02:00Reason for exam:->Post opShould this be performed [...] MDReport Verified Date/Time: 01/04/2019 08:02:18 Reading Location: [address] Consult Reading Room Electronicallysigned by: EDENILSON BLOOM M.D. on 01/04/2019 08:02 AMPOCT-GLUCOSE [id number] 07:42:00 Test Item Value Reference Range Interpretation Comments POC-GLUCOSE METER 98 mg/dL 70-110 TESTED AT [place] [address] ([facility]) (test code = FOSTER Paul [facility] [address] 1538) BASIC METABOLIC [id number] 07:28:00 Test Item Value Reference Range Interpretation [...] 0-0 H (BEAKER) (test code = 413) [id number] 06:08:00 Test Item Value Reference Range Interpretation Comments PARTIAL THROMBOPLASTIN TIME 70.6 seconds 22.5-36.0 H (BEAKER) (test code = 760) [id number] 23:32:00 Test Item Value Reference Range Interpretation Comments PARTIAL THROMBOPLASTIN TIME 77.2 seconds 22.5-36.0 H (BEAKER) (test code = 760) POCT-GLUCOSE [id number] 21:55:00 Test Item Value Reference Range Interpretation Comments POC-GLUCOSE METER 150 mg/dL 70-110 H TESTED AT [facility] 6720 (BEAKER) (test code = [place] 1538) [address] [id number] 18:25:00 Test Item Value Reference Range Interpretation Comments PARTIAL THROMBOPLASTIN TIME 71.2 seconds 22.5-36.0 H ([facility]) (test code = 760) POCT-GLUCOSE [id number] 13:45:00 Test Item Value Reference Range Interpretation Comments POC-GLUCOSE METER 375 mg/dL 70-110 H Notified R Toy PÉREZ/TESTED ([facility]) (test code = AT [facility] 6720 [facility] 1538) [facility] 7703 0 [id number] 10:26:00 Test Item Value Reference Range Interpretation Comments PARTIAL THROMBOPLASTIN TIME 94.0 seconds 22.5-36.0 H ([facility]) (test code = 760) While on warfarin.PROTHROMBIN TIME/[id number] 10:24:00 Test Item Value Reference Range Interpretation Comments PROTIME (JARROD) (test code = 19.3 seconds 11.7-14.7 H 759) INR ([facility]) (test code = 370) 1.7 <=5.9 RECOMMENDED COUMADIN/WARFARIN INR THERAPY RANGESSTANDARD DOSE: 2.0 - 3.0 Includes: PROPHYLAXIS forvenous thrombosis, systemic embolization; TREATMENT for venous thrombosis and/or pulmonary embolus.HIGH RISK: Target INR is 2.5-3.5 for patients with mechanical heart valves.While on warfarin.POCT-GLUCOSE METER 2019-01-03 08:36:00 Test Item Value Reference Range Interpretation Comments POC-GLUCOSE METER 124 mg/dL 70-110 H TESTED AT [facility] 67 ([facility]) (test code = FOSTER Paul [facility] 1538) [address] RAD, CHEST, 1 VIEW, NON [id number] 08:19:00Reason for exam:->Post opShould this be performed [...] and mediastinum:Stable contours. Additional findings: None. Signed: Sloan, Radha MDReport Verified Date/Time: 01/03/2019 08:19:51 Reading Location: [facility] C013V Neuro Reading Room [id number] 03:31:00 Test Item Value Reference Range Interpretation Comments PARTIAL THROMBOPLASTIN TIME 64.2 seconds 22.5-36.0 H (BEAKER) (test code = 760) BASIC METABOLIC [id number] 03:21:00 Test Item Value Reference Range Interpretation [...] 753) MEAN CORPUSCULAR HEMOGLOBIN 31.4 pg 25.7-32.2 ([facility]) (test code = 751) MEAN CORPUSCULAR HEMOGLOBIN CONC 30.5 GM/DL 32.3-36.5 L ([facility]) (test code = 752) RED CELL DISTRIBUTION WIDTH 16.1 % 11.6-14.4 H ([facility]) (test code = 412) PLATELET COUNT ([facility]) (test 167 K/CU MM 150-450 code = 756) MEAN PLATELET VOLUME ([facility]) 8.7 fL 9.4-12.4 L (test code = 754) NUCLEATED RED BLOOD CELLS 1 /100 WBC 0-0 H ([facility]) (test code = 413) POCT-GLUCOSE [id number] 22:54:00 Test Item Value Reference Range Interpretation Comments POC-GLUCOSE METER 206 mg/dL 70-110 H TESTED AT [place] [address] ([facility]) (test code = FOSTER Paul [facility] 1538) [address] [id number] 19:36:00 Test Item Value Reference Range Interpretation Comments PARTIAL THROMBOPLASTIN TIME 79.3 seconds 22.5-36.0 H ([facility]) (test code = 760) POCT-GLUCOSE [id number] 17:59:00 Test Item Value Reference Range Interpretation Comments POC-GLUCOSE METER 186 mg/dL 70-110 H TESTED AT [place] [address] ([facility]) (test code = MARIA GOSMAN Paul [facility] 1538) [address] POCT-GLUCOSE [id number] 13:54:00 Test Item Value Reference Range Interpretation Comments POC-GLUCOSE METER 139 mg/dL 70-110 H TESTED AT [place] [address] ([facility]) (test code = MARIA GOSMAN Paul [place] 1538) [address] POCT-GLUCOSE [id number] 13:05:00 Test Item Value Reference Range Interpretation Comments POC-GLUCOSE METER 163 mg/dL 70-110 H TESTED AT [place] [address] ([facility]) (test code = FOSTER Paul [place] 1538) [address] [id number] 12:49:00 Test Item Value Reference Range Interpretation Comments PARTIAL THROMBOPLASTIN TIME 64.9 seconds 22.5-36.0 H ([facility]) (test code = 760) OCCULT BLOOD, [id number] 12:31:00 Test Item Value Reference Range Interpretation Comments FECAL OCCULT BLOOD (BEAKER) (test Negative Negative code = 618) RAD, CHEST, 1 VIEW, NON [id number] 10:37:00Reason for exam:->Post opShould this be performed [...] 01/02/2019 10:37:35 Reading Loc ation: [facility] Radiology Reading Room POCT-GLUCOSE [id number] 08:07:00 Test Item Value Reference Range Interpretation Comments POC-GLUCOSE METER 107 mg/dL 70-110 TESTED AT [facility] 6720 (BEAKER) (test code = [place] 1538) [address] [id number] 04:48:00 Test Item Value Reference Range Interpretation Comments PARTIAL THROMBOPLASTIN TIME 106.0 seconds 22.5-36.0 H (BEAKER) (test code = 760) While on warfarin.BASIC METABOLIC [id number] 04:48:00 Test Item Value Reference Range Interpretation [...] NOT APPLICABLE FOR DIALYSIS PATIEN TS. PROTHROMBIN [id number] 04:39:00 Test Item Value Reference Range Interpretation [...] 150-450 code = 756) MEAN PLATELET VOLUME ([facility]) 8.9 fL 9.4-12.4 L (test code = 754) NUCLEATED RED BLOOD CELLS 0 /100 WBC 0-0 ([facility]) (test code = 413) POCT-GLUCOSE [id number] 22:17:00 Test Item Value Reference Range Interpretation Comments POC-GLUCOSE METER 117 mg/dL 70-110 H TESTED AT [place] [address] ([facility]) (test code = FOSTER Paul [place] 1538) [address] RAD, CHEST, 1 VIEW, NON [id number] 19:40:00Reason for exam:->Post opShould this be performed [...] Bloom Verified Date/Time: 01/01/2019 19:40:01 Reading Location: [address] Consult Reading Room POCT-GLUCOSE [id number] 18:22:00 Test Item Value Reference Range Interpretation Comments POC-GLUCOSE METER 159 mg/dL 70-110 H TESTED AT [facility] 6720 ([facility]) (test code = FOSTER Paul [place] 1538) [address] POCT-GLUCOSE [id number] 14:12:00 Test Item Value Reference Range Interpretation Comments POC-GLUCOSE METER 135 mg/dL 70-110 H TESTED AT [facility] 6720 ([facility]) (test code = FOSTER Paul [place] 1538) [address] HEPATITIS B SURFACE [id number] 11:52:00 Test Item Value Reference Range Interpretation Comments HEPATITIS B SURFACE ANTIGEN (2) Nonreactive Nonreactive ([facility]) (test code = 2585) POCT-GLUCOSE [id number] 08:40:00 Test Item Value Reference Range Interpretation Comments POC-GLUCOSE METER 85 mg/dL 70-110 TESTED AT [facility] 6720 (BEAKER) (test code = [place] [address] 1538) BASIC METABOLIC [id number] 04:17:00 Test Item Value Reference Range Interpretation [...] S NOT APPLICABLE FOR DIALYSIS PATIEN TS. [id number] 03:40:00 Test Item Value Reference Range Interpretation Comments PARTIAL THROMBOPLASTIN TIME 84.1 seconds 22.5-36.0 H (BEAKER) (test code = 760) While on warfarin.PROTHROMBIN TIME/[id number] 03:39:00 Test Item Value Reference Range Interpretation [...] 0-0 (BEAKER) (test code = 413) POCT-GLUCOSE [id number] 22:08:00 Test Item Value Reference Range Interpretation Comments POC-GLUCOSE METER 194 mg/dL 70-110 H TESTED AT [place] [address] ([facility]) (test code = FOSTER Paul [facility] 1538) [address] POCT-GLUCOSE [id number] 22:03:00 Test Item Value Reference Range Interpretation Comments POC-GLUCOSE METER 203 mg/dL 70-110 H TESTED AT [place] [address] ([facility]) (test code = FOSTER Paul [facility] 1538) [address] POCT-GLUCOSE [id number] 21:42:00 Test Item Value Reference Range Interpretation Comments POC-GLUCOSE METER 42 mg/dL 70-110 L TESTED AT [place] [address] ([facility]) (test code = FOSTER Paul [facility] [address] 1538) [id number] 21:35:00 Test Item Value Reference Range Interpretation Comments PARTIAL THROMBOPLASTIN TIME 80.4 seconds 22.5-36.0 H (JARROD) (test code = 760) POCT-GLUCOSE [id number] 18:03:00 Test Item Value Reference Range Interpretation Comments POC-GLUCOSE METER 144 mg/dL 70-110 H TESTED AT [facility] 6720 (JARROD) (test code = [place] 1538) [address] TISSUE [id number] 16:33:00Surgical Pathology Report Case: [id number] Authorizing Provider: Enmanuel Sharma Collected: 12/26/2018 1537 MD Liban OrderingLocation: [facility] 11 [facility] Received: 12/29/2018 0814 Service Pathologist: Brigida [...] stains. GMSImmunohistochemistry technical testing was performed at [facility], Pathology Laboratory where it was developed [...] toperform high complexity clinical laboratory testing.CPT CODE: [id number] electronically signed by Brigida Parks MD on [...] ARE NEGATIVE Signing Pathologist Direct Phone Line: [phone] signed by Brigida Parks MD on 12/30/2018 at 6:43 PMPreliminary result electronically signed by Brigida Parks MD on 12/29/2018 at 4:54 [id number] X 2; 60853; 25330; 35015 X 2Upper endoscopy, biopsyPreoperative and postoperative diagnosis: [...] AND CMVImmunohistochemistry technical testing was performed at [facility], Pathology Laboratory where it was developed [...] qualified toperform high complexity clinical laboratory testing.POCT-GLUCOSE [id number] 13:57:00 Test Item Value Reference Range Interpretation Comments POC-GLUCOSE METER 178 mg/dL 70-110 H TESTED AT [facility] 6720 (JARROD) (test code = FOSTER Paul [place] 1538) [address] [id number] 12:54:00 Test Item Value Reference Range Interpretation Comments PARTIAL THROMBOPLASTIN TIME 69.4 seconds 22.5-36.0 H (BEAKER) (test code = 760) RAD, CHEST, 1 VIEW, NON [id number] 09:26:00Reason for exam:->Post opShould this be performed [...] the right mid to lower lung. Signed: Dmo Christianson MDReport Verified Date/Time: 12/31/2018 09:26:31 Reading Location: [facility] Radiology Reading Room POCT-GLUCOSE [id number] 09:01:00 Test Item Value Reference Range Interpretation Comments POC-GLUCOSE METER 162 mg/dL 70-110 H TESTED AT [facility] 6720 ([facility]) (test code = FOSTER Paul [facility] 1538) [address] BASIC METABOLIC [id number] 06:50:00 Test Item Value Reference Range Interpretation [...] NOT APPLICABLE FOR DIALYSIS PATIEN TS. PROTHROMBIN [id number] 06:38:00 Test Item Value Reference Range Interpretation Comments PROTIME (BEAKER) (test code = 19.1 seconds 11.7-14.7 H 759) INR (BEAKER) (test code = 370) 1.7 <=5.9 RECOMMENDED COUMADIN/WARFARIN INR THERAPY RANGESSTANDARD DOSE: 2.0 - 3.0 Includes: PROPHYLAXIS forvenous thrombosis, systemic embolization; TREATMENT for venous thrombosis and/or pulmonary embolus.HIGH RISK: Target INR is 2.5-3.5 for patients with mechanical heart valves.While on warfarin.[id number] 06:37:00 Test Item Value Reference Range Interpretation [...] 0-0 (BEAKER) (test code = 413) POCT-GLUCOSE [id number] 00:45:00 Test Item Value Reference Range Interpretation Comments POC-GLUCOSE METER 124 mg/dL 70-110 H TESTED AT [place] [address] ([facility]) (test code = FOSTER Paul [place] 1538) [address] [id number] 19:14:00 Test Item Value Reference Range Interpretation Comments PARTIAL THROMBOPLASTIN TIME 57.8 seconds 22.5-36.0 H (BEAKER) (test code = 760) POCT-GLUCOSE [id number] 17:53:00 Test Item Value Reference Range Interpretation Comments POC-GLUCOSE METER 133 mg/dL 70-110 H TESTED AT [place] [address] ([facility]) (test code = FOSTER Paul [place] 1538) [address] POCT-GLUCOSE [id number] 13:19:00 Test Item Value Reference Range Interpretation Comments POC-GLUCOSE METER 147 mg/dL 70-110 H TESTED AT [place] [address] ([facility]) (test code = MARIA GCT Humberto [place] 1538) [address] [id number] 12:43:00 Test Item Value Reference Range Interpretation Comments PARTIAL THROMBOPLASTIN TIME 57.0 seconds 22.5-36.0 H (BEAKER) (test code = 760) [id number] 10:17:00 Test Item Value Reference Range Interpretation Comments PARTIAL THROMBOPLASTIN TIME 134.5 seconds 22.5-36.0 H (BEAKER) (test code = 760) POCT-GLUCOSE [id number] 07:43:00 Test Item Value Reference Range Interpretation Comments POC-GLUCOSE METER 107 mg/dL 70-110 TESTED AT [place] [address] ([facility]) (test code = [facility] Humberto [place] 1538) [address] BASIC METABOLIC [id number] 06:46:00 Test Item Value Reference Range Interpretation [...] PATIEN TS. RAD, CHEST, 1 VIEW, NON [id number] 06:25:00Reason for exam:->Post opShould this be performed [...] Lisa Verified Date/Time: 12/30/2018 06:25:51 Reading Location: [address] Neuro Reading Room PROTHROMBIN TIME/[id number] 06:06:00 Test Item Value Reference Range Interpretation [...] 0-0 (BEAKER) (test code = 413) POCT-GLUCOSE [id number] 22:19:00 Test Item Value Reference Range Interpretation Comments POC-GLUCOSE METER 179 mg/dL 70-110 H TESTED AT [place] [address] ([facility]) (test code = FOSTER VU [place] 1538) [address] POCT-GLUCOSE [id number] 17:39:00 Test Item Value Reference Range Interpretation Comments POC-GLUCOSE METER 181 mg/dL 70-110 H TESTED AT [place] [address] ([facility]) (test code = FOSTER VU [place] 1538) [address] POCT-GLUCOSE [id number] 13:14:00 Test Item Value Reference Range Interpretation Comments POC-GLUCOSE METER 102 mg/dL 70-110 TESTED AT [place] [address] ([facility]) (test code = FOSTER VU [place] 1538) [address] RAD, CHEST, 1 VIEW, NON [id number] 08:56:00Reason for exam:->Post opShould this be performed [...] MDReport Verified Date/Time: 12/29/2018 08:56:32 Reading Location: [facility] Radiology Reading Room Electronically signed by: EDENILSON BLOOM M.D.on 12/29/2018 08:56 AMPOCT-GLUCOSE [id number] 07:53:00 Test Item Value Reference Range Interpretation Comments POC-GLUCOSE METER 135 mg/dL 70-110 H TESTED AT [facility] 6720 ([facility]) (test code = FOSTER Paul [facility] 1538) [address] [id number] 06:45:00 Test Item Value Reference Range Interpretation Comments PARTIAL THROMBOPLASTIN TIME 83.5 seconds 22.5-36.0 H (AKER) (test code = 760) While on warfarin.PROTHROMBIN TIME/[id number] 06:44:00 Test Item Value Reference Range Interpretation Comments PROTIME (BEAKER) (test code = 17.1 seconds 11.7-14.7 H 759) INR ([facility]) (test code = 370) 1.5 <=5.9 RECOMMENDED [...] WBC 0-0 (BEAKER) (test code = 413) [id number] 00:01:00 Test Item Value Reference Range Interpretation Comments PARTIAL THROMBOPLASTIN TIME 78.5 seconds 22.5-36.0 H (BEAKER) (test code = 760) POCT-GLUCOSE [id number] 21:26:00 Test Item Value Reference Range Interpretation Comments POC-GLUCOSE METER 139 mg/dL 70-110 H TESTED AT [facility] 6720 ([facility]) (test code = FOSTER VU [place] 1538) [address] POCT-GLUCOSE [id number] 17:58:00 Test Item Value Reference Range Interpretation Comments POC-GLUCOSE METER 146 mg/dL 70-110 H TESTED AT [facility] 67 ([facility]) (test code = FOSTER Paul [place] 1538) [address] [id number] 17:16:00 Test Item Value Reference Range Interpretation Comments PARTIAL THROMBOPLASTIN TIME 34.5 seconds 22.5-36.0 ([facility]) (test code = 760) Prior to initiating heparinPOCT-GLUCOSE [id number] 12:54:00 Test Item Value Reference Range Interpretation Comments POC-GLUCOSE METER 133 mg/dL 70-110 H TESTED AT [place] [address] ([facility]) (test code = FOSTER Paul [place] 1538) [address] RAD, CHEST, 1 VIEW, NON [id number] 08:06:00Reason for exam:->Post opShould this be performed at the bedside?->YesFINAL REPORT Chest one view. Clinical history: Post op Comparison: 12/27/2018 Discussion: A frontal chest is provided. Cardiomediastinal contours are unchanged. Lines and tubesare in stable position. Unchanged right-sided pleural-parenchymal opacities. Left lung is grossly clear. Vessels do not appear engorged. No pneumothorax. Signed: Dionicio Cheryeport Verified Date/Time: 12/28/2018 08:06:07 Reading Location: [facility] C013V Neuro Reading Room BASIC METABOLIC [id number] 06:52:00 Test Item Value Reference Range Interpretation [...] NOT APPLICABLE FOR DIALYSIS PATIEN TS. PROTHROMBIN [id number] 06:31:00 Test Item Value Reference Range Interpretation [...] CORPUSCULAR HEMOGLOBIN CONC 31.6 GM/DL 32.3-36.5 L ([facility]) (test code = 752) RED CELL DISTRIBUTION WIDTH 15.9 % 11.6-14.4 H ([facility]) (test code = 412) PLATELET COUNT ([facility]) (test 110 K/CU MM 150-450 L code = 756) MEAN PLATELET VOLUME ([facility]) 9.3 fL 9.4-12.4 L (test code = 754) NUCLEATED RED BLOOD CELLS 0 /100 WBC 0-0 ([facility]) (test code = 413) POCT-GLUCOSE [id number] 21:41:00 Test Item Value Reference Range Interpretation Comments POC-GLUCOSE METER 163 mg/dL 70-110 H TESTED AT [place] [address] ([facility]) (test code = FOSTER Paul [facility] 1538) [address] POCT-GLUCOSE [id number] 17:23:00 Test Item Value Reference Range Interpretation Comments POC-GLUCOSE METER 119 mg/dL 70-110 H TESTED AT [place] [address] ([facility]) (test code = FOSTER Paul [facility] 1538) [address] RAD, CHEST, 1 VIEW, NON [id number] 14:49:00Reason for exam:->Post opShould this be performed [...] MDReport Verified Date/Time: 12/27/2018 14:49:48 Reading Location: [facility] C013X Ortho Consult Reading Room ANG, NON-TUNNELED CATH >5 Y.O. [id number] 14:17:00Reason for exam:->Central line placement, poor access, [...] guide wire was advanced centrally. A 7 Kitt[place] 20 cm triple lumen catheter was advanced [...] Sykes Verified Date/Time: 12/27/2018 14:17:02 Reading Location: [place] [address] Angio Body Reading Room [id number] 13:44:00 Test Item Value Reference Range Interpretation Comments PARTIAL THROMBOPLASTIN TIME 44.3 seconds 22.5-36.0 H ([facility]) (test code = 760) Prior to initiating heparinPOCT-GLUCOSE [id number] 13:27:00 Test Item Value Reference Range Interpretation Comments POC-GLUCOSE METER 127 mg/dL 70-110 H TESTED AT [facility] 6720 ([facility]) (test code = MARIA GOSMAN Paul [facility] 1538) [address] POCT-GLUCOSE [id number] 08:58:00 Test Item Value Reference Range Interpretation Comments POC-GLUCOSE METER 79 mg/dL 70-110 TESTED AT [facility] 6720 (BEAKER) (test code = FOSTER VU [place] [id number] 2558) BASIC METABOLIC [id number] 07:09:00 Test Item Value Reference Range Interpretation [...] NOT APPLICABLE FOR DIALYSIS PATIEN TS. PROTHROMBIN [id number] 06:52:00 Test Item Value Reference Range Interpretation [...] WBC 0-0 (test code = 413) POCT-GLUCOSE [id number] 23:54:00 Test Item Value Reference Range Interpretation Comments POC-GLUCOSE METER 73 mg/dL 70-110 TESTED AT [place] [address] ([facility]) ([facility] [address] 1538) POCT-GLUCOSE [id number] 16:02:00 Test Item Value Reference Range Interpretation Comments POC-GLUCOSE METER 108 mg/dL 70-110 TESTED AT [place] [address] ([facility]) (test [facility] = [facility] 1538) [address] POCT-GLUCOSE [id number] 15:24:00 Test Item Value Reference Range Interpretation Comments POC-GLUCOSE METER 74 mg/dL 70-110 TESTED AT [place] [address] ([facility]) (test code = [facility] Humberto [facility] [address] 1538) POCT-GLUCOSE [id number] 10:29:00 Test Item Value Reference Range Interpretation Comments POC-GLUCOSE METER 88 mg/dL 70-110 TESTED AT [place] [address] ([facility]) (test code = [facility] Humberto [facility] [address] 1538) RAD, CHEST, 1 VIEW, NON [id number] 07:33:00Reason for exam:->Post opShould this be performed [...] MDReport Verified Date/Time: 12/26/2018 07:33:38 Reading Location: [facility] Radiology Reading Room BASIC METABOLIC [id number] 06:42:00 Test Item Value Reference Range Interpretation [...] 0-0 H (test code = 413) PROTHROMBIN [id number] 05:44:00 Test Item Value Reference Range Interpretation Comments PROTIME (BEAKER) (test code = 24.4 seconds 11.7-14.7 H 759) INR (BEAKER) (test code = 370) 2.2 <=5.9 RECOMMENDED COUMADIN/WARFARIN INR THERAPY RANGESSTANDARD DOSE: 2.0 - 3.0 Includes: PROPHYLAXIS forvenous thrombosis, systemic embolization; TREATMENT for venous thrombosis and/or pulmonary embolus.HIGH RISK: Target INR is 2.5-3.5 for patients with mechanical heart valves.POCT-GLUCOSE [id number] 00:06:00 Test Item Value Reference Range Interpretation Comments POC-GLUCOSE METER 88 mg/dL 70-110 TESTED AT [place] [address] ([facility]) (test [facility] = [facility] [address] 1538) POCT-GLUCOSE [id number] 19:06:00 Test Item Value Reference Range Interpretation Comments POC-GLUCOSE METER 121 mg/dL 70-110 H TESTED AT [facility] 6720 ([facility]) (test code = [facility] 1538) [address] PROTHROMBIN TIME/[id number] 16:10:00 Test Item Value Reference Range Interpretation Comments PROTIME (BEAKER) (test code = 30.1 seconds 11.7-14.7 H 759) INR (BEAKER) (test code = 370) 2.9 <=5.9 RECOMMENDED COUMADIN/WARFARIN INR THERAPY RANGESSTANDARD DOSE: 2.0 - 3.0 Includes: PROPHYLAXIS forvenous thrombosis, systemic embolization; TREATMENT for venous thrombosis and/or pulmonary embolus.HIGH RISK: Target INR is 2.5-3.5 for patients with mechanical heart valves.BASIC METABOLIC [id number] 16:10:00 Test Item Value Reference Range Interpretation [...] S NOT APPLICABLE FOR DIALYSIS PATIEN TS. [id number] 16:09:00 Test Item Value Reference Range Interpretation [...] 0-0 H (test code = 413) POCT-GLUCOSE [id number] 08:03:00 Test Item Value Reference Range Interpretation Comments POC-GLUCOSE METER 89 mg/dL 70-110 TESTED AT [facility] 6720 (BEAKER) (test code = FOSTER Paul [facility] [address] 1538) RAD, CHEST, 1 VIEW, NON [id number] 07:46:00Reason for exam:->Post opShould this be performed at the bedside?->YesFINAL REPORT Chest one view. Clinical history: Post op Comparison: 12/24/2018 Discussion: A frontal chest is provided. Cardiomediastinal contours are unchanged. Stable appearance of pleural-parenchymal opacity at the right mid to lower lung. There is a tiny right apical pneumothorax, unchanged. Probable trace left effusion. Signed: Dionicio Chery Verified Date/Time: 07:46:01 Reading Location: [facility] Radiology Reading Room RAD, ABDOMEN/KUB, 1 VIEW [id number] 07:25:00Reason for exam:->abdominal distentionShould this be performed [...] Chery Verified Date/Time: 12/25/2018 07:25:40 Reading Location: [facility] Radiology Reading Room POCT-GLUCOSE [id number] 22:06:00 Test Item Value Reference Range Interpretation Comments POC-GLUCOSE METER 102 mg/dL 70-110 TESTED AT [place] [address] ([facility]) (test code = [facility] 1538) [address] POCT-GLUCOSE [id number] 18:44:00 Test Item Value Reference Range Interpretation Comments POC-GLUCOSE METER 100 mg/dL 70-110 TESTED AT [place] [address] ([facility]) (test code = [facility] [employer] [facility] 1538) [address] POCT-GLUCOSE [id number] 14:54:00 Test Item Value Reference Range Interpretation Comments POC-GLUCOSE METER 103 mg/dL 70-110 TESTED AT [place] [address] ([facility]) (test code = [facility] [employer] [facility] 1538) [address] [id number] 08:07:00 Test Item Value Reference Range Interpretation Comments FERRITIN ([facility]) (test code = 2044 ng/mL 5-275 H 361) POCT-GLUCOSE [id number] 07:57:00 Test Item Value Reference Range Interpretation Comments POC-GLUCOSE METER 76 mg/dL 70-110 TESTED AT [place] [address] ([facility]) (test code = [facility] Humberto [facility] [address] 1538) RAD, CHEST, 1 VIEW, NON [id number] 07:57:00Reason for exam:->Post opShould this be performed [...] MDReport Verified Date/Time: 12/24/2018 07:57:06 Reading Location: [facility] Radiology Reading Room CBC (HEMOGRAM ONLY) [...] H (test code = 413) BASIC METABOLIC [id number] 07:14:00 Test Item Value Reference Range Interpretation [...] S NOT APPLICABLE FOR DIALYSIS PATIEN TS. [id number] 07:08:00 Test Item Value Reference Range Interpretation [...] % 20-55 (test code = 2590) PROTHROMBIN TIME/[id number] 07:05:00 Test Item Value Reference Range Interpretation Comments PROTIME (BEAKER) (test code = 38.7 seconds 11.7-14.7 H 759) INR (BEAKER) (test code = 370) 3.9 <=5.9 RECOMMENDED COUMADIN/WARFARIN INR THERAPY RANGESSTANDARD DOSE: 2.0 - 3.0 Includes: PROPHYLAXIS forvenous thrombosis, systemic embolization; TREATMENT for venous thrombosis and/or pulmonary embolus.HIGH RISK: Target INR is 2.5-3.5 for patients with mechanical heart valves.POCT-GLUCOSE [id number] 00:26:00 Test Item Value Reference Range Interpretation Comments POC-GLUCOSE METER 86 mg/dL 70-110 TESTED AT [facility] 6720 (BEAKER) (test code = [place] [address] 1538) POCT-GLUCOSE [id number] 00:26:00 Test Item Value Reference Range Interpretation Comments POC-GLUCOSE METER 137 mg/dL 70-110 H TESTED AT [place] [address] ([facility] (test code = FOSTER Paul [facility] 1538) [address] POCT-GLUCOSE [id number] 16:07:00 Test Item Value Reference Range Interpretation Comments POC-GLUCOSE METER 72 mg/dL 70-110 TESTED AT [place] [address] (BEAKER) (test code = FOSTER Paul [facility] [address] 1538) POCT-GLUCOSE [id number] 16:07:00 Test Item Value Reference Range Interpretation Comments POC-GLUCOSE METER 61 mg/dL 70-110 L TESTED AT [place] [address] ([facility] (test [facility] = [facility] [address] 1538) POCT-GLUCOSE [id number] 11:27:00 Test Item Value Reference Range Interpretation Comments POC-GLUCOSE METER 82 mg/dL 70-110 TESTED AT [place] [address] ([facility]) (test code = FOSTER Paul [facility] [address] 1538) POCT-GLUCOSE [id number] 10:32:00 Test Item Value Reference Range Interpretation Comments POC-GLUCOSE METER 43 mg/dL 70-110 L TESTED AT [place] [address] ([facility] (test code = [facility] Humberto [facility] [address] 1538) BASIC METABOLIC [id number] 07:28:00 Test Item Value Reference Range Interpretation [...] S NOT APPLICABLE FOR DIALYSIS PATIEN TS. [id number] 07:24:00 Test Item Value Reference Range Interpretation Comments MAGNESIUM (BEAKER) 2.0 mg/dL 1.6-2.6 Specimen slightly (test code = 627) hemolyzed [id number] 07:24:00 Test Item Value Reference Range Interpretation Comments PHOSPHORUS (BEAKER) 4.4 mg/dL 2.3-4.7 Specimen slightly (test code = 604) hemolyzed PROTHROMBIN TIME/[id number] 07:20:00 Test Item Value Reference Range Interpretation [...] = 413) RAD, CHEST, 1 VIEW, NON [id number] 04:22:00Reason for exam:->Post opShould this be performed [...] no no definite pneumothorax. Signed: Raz Taylor [facility] Verified Date/Time: 12/23/2018 04:22:43 Reading Location: [facility] C013Y CT Body Reading Room POCT-GLUCOSE [id number] 03:01:00 Test Item Value Reference Range Interpretation Comments POC-GLUCOSE METER 85 mg/dL 70-110 TESTED AT [facility] 6720 (BEAKER) (test code = FOSTER Paul [facility] [address] 1538) BASIC METABOLIC [id number] 18:52:00 Test Item Value Reference Range Interpretation [...] H (BEAKER) (test code = 413) ANAEROBIC [id number] 17:00:00 Test Item Value Reference Range Interpretation Comments CULTURE (BEAKER) (test No anaerobes isolated code = 1095) RAD, CHEST, 1 VIEW, NON [id number] 07:44:00Reason for exam:->Post opShould this be performed [...] Arteaga Verified Date/Time: 12/22/2018 07:44:12 Reading Location: [facility] Radiology Reading Room PROTHROMBIN [id number] 04:31:00 Test Item Value Reference Range Interpretation Comments PROTIME ([facility]) (test code = 63.0 seconds 11.7-14.7 H 759) INR ([facility]) (test code = 370) 7.6 <=5.9 RECOMMENDED COUMADIN/WARFARIN INR THERAPY RANGESSTANDARD DOSE: 2.0 - 3.0 Includes: PROPHYLAXIS forvenous thrombosis, systemic embolization; TREATMENT for venous thrombosis and/or pulmonary embolus.HIGH RISK: Target INR is 2.5-3.5 for patients with mechanical heart valves.While on warfarin.POCT-GLUCOSE METER 2018-12-21 22:29:00 Test Item Value Reference Range Interpretation Comments POC-GLUCOSE METER 141 mg/dL 70-110 H TESTED AT [facility] 6720 ([facility] (test code = FOSTER Paul [facility] 1538) [address] POCT-GLUCOSE [id number] 13:22:00 Test Item Value Reference Range Interpretation Comments POC-GLUCOSE METER 100 mg/dL 70-110 TESTED AT [facility] 6720 ([facility]) (test code = FOSTER Paul [facility] 1538) [address] RAD, CHEST, 1 VIEW, NON [id number] 08:01:00Reason for exam:->Post opShould this be performed [...] Lisa Verified Date/Time: 12/21/2018 08:01:46 Reading Location: [address] Neuro Reading Room PROTHROMBIN TIME/[id number] 05:30:00 Test Item Value Reference Range Interpretation Comments PROTIME ([employer]) (test code = 39.1 seconds 11.7-14.7 H 759) [facility]R [facility] (test code = 370) 4.0 <=5.9 RECOMMENDED COUMADIN/WARFARIN INR THERAPY RANGESSTANDARD DOSE: 2.0 - 3.0 Includes: PROPHYLAXIS forvenous thrombosis, systemic embolization; TREATMENT for venous thrombosis and/or pulmonary embolus.HIGH RISK: Target INR is 2.5-3.5 for patients with mechanical heart valves.While on warfarin.POCT-GLUCOSE METER 2018-12-20 22:10:00 Test Item Value Reference Range Interpretation Comments POC-GLUCOSE METER 98 mg/dL 70-110 TESTED AT [place] [address] ([employer]) (test code = FOSTER Paul [facility] [address] 1538) POCT-GLUCOSE [id number] 17:40:00 Test Item Value Reference Range Interpretation Comments POC-GLUCOSE METER 91 mg/dL 70-110 TESTED AT [place] [address] ([employer]) (test code = [employer] [facility] [address] 1538) POCT-GLUCOSE [id number] 13:13:00 Test Item Value Reference Range Interpretation Comments POC-GLUCOSE METER 73 mg/dL 70-110 TESTED AT [place] [address] ([employer]) (test code = [employer] [facility] [address] 1538) SURGICALLY OBTAINED CULTURE + GRAM [id number] 08:41:00 Test Item Value Reference Range Interpretation Comments CULTURE (BEAKER) (test No growth code = 1095) GRAM STAIN RESULT No White blood cells (BEAKER) (test code = seen 1123) GRAM STAIN RESULT No organisms seen (BEAKER) (test code = 71867) RAD, CHEST, 1 VIEW, NON [id number] 08:20:00Reason for exam:->Post opShould this be performed [...] MDReport Verified Date/Time: 12/20/2018 08:20:58 Reading Location: [address] Neuro Reading Room BASIC METABOLIC [id number] 08:09:00 Test Item Value Reference Range Interpretation [...] S NOT APPLICABLE FOR DIALYSIS PATIEN TS. [id number] 08:00:00 Test Item Value Reference Range Interpretation Comments PHOSPHORUS (BEAKER) (test code = 4.5 mg/dL 2.3-4.7 604) CALCIUM, [id number] 07:20:00 Test Item Value Reference Range Interpretation Comments CALCIUM IONIZED (BEAKER) (test 1.04 mmol/L 1.12-1.27 L code = 698) PH, BLOOD (BEAKER) (test code = 7.35 1810) PROTHROMBIN [id number] 07:04:00 Test Item Value Reference Range Interpretation [...] L code = 756) MEAN PLATELET VOLUME ([facility]) 9.7 fL 9.4-12.4 (test code = 754) NUCLEATED RED BLOOD CELLS 0 /100 WBC 0-0 ([facility]) (test code = 413) POCT-GLUCOSE [id number] 22:00:00 Test Item Value Reference Range Interpretation Comments POC-GLUCOSE METER 188 mg/dL 70-110 H TESTED AT [place] [address] ([facility]) (test code = [place] 1538) [address] TISSUE [id number] 18:15:00Surgical Pathology Report Case: [id number] Authorizing Provider: Moiz Vargas, Collected: 12/17/2018 0950 Ordering Location: [facility] Received: 12/17/2018 1129 PERIOPERATIVE SERVICES Pathologist: Kwan Perla MD Specimen: Pleural, Right, RIGHT PLEURAL PEEL PLEURA, RIGHT, DECORTICATION- MILD CHRONIC INFLAMMATION AND GRANULATION TISSUE- ORGANIZING BLOOD CLOTS- NO MALIGNANT CELLS IDENTIFIED Signing Pathologist Direct Phone Line: [phone] signed by Kwan Perla MD on 12/19/2018 at 6:15 PMCorrelation with microbiology cultures is recommended.[id number] effusion and other conditions classified elsewhereRight pleural peelThe specimen is received in a formalin-filled container labeled with the patient's information and labeled "right pleural peel" and consists of multiple fragments of porter-red, dusky, firm tissue measuring 6 x 5 x 0.4 cm in aggregate. Production Generalist sections are submitted in A1-A3. CG/ew Performed.POCT-GLUCOSE [id number] 17:11:00 Test Item Value Reference Range Interpretation Comments POC-GLUCOSE METER 126 mg/dL 70-110 H TESTED AT [facility] 6720 ([facility]) (test code = [place] 1538) [address] POCT-GLUCOSE [id number] 12:57:00 Test Item Value Reference Range Interpretation Comments POC-GLUCOSE METER 143 mg/dL 70-110 H TESTED AT [facility] 6720 ([facility]) (test code = [place] 1538) [address] POCT-GLUCOSE [id number] 07:27:00 Test Item Value Reference Range Interpretation Comments POC-GLUCOSE METER 141 mg/dL 70-110 H TESTED AT [facility] 6720 (BEAKER) (test code = [place] 1538) [address] CALCIUM, [id number] 06:29:00 Test Item Value Reference Range Interpretation Comments CALCIUM IONIZED (BEAKER) (test 1.00 mmol/L 1.12-1.27 L code = 698) PH, BLOOD (BEAKER) (test code = 7.45 1810) RAD, CHEST, 1 VIEW, NON [id number] 04:54:00Reason for exam:->Post opShould this be performed [...] MDReport Verified Date/Time: 2018 04:54:49 Reading Location: [address] Body Reading Room BASIC METABOLIC [id number] 04:19:00 Test Item Value Reference Range Interpretation [...] S NOT APPLICABLE FOR DIALYSIS PATIEN TS. [id number] 04:16:00 Test Item Value Reference Range Interpretation Comments PHOSPHORUS (BEAKER) (test code = 3.4 mg/dL 2.3-4.7 604) PROTHROMBIN [id number] 04:06:00 Test Item Value Reference Range Interpretation [...] CELL DISTRIBUTION WIDTH 15.7 % 11.6-14.4 H ([facility]) (test code = 412) PLATELET COUNT ([facility]) (test 114 K/CU MM 150-450 L code = 756) MEAN PLATELET VOLUME ([facility]) 9.8 fL 9.4-12.4 (test code = 754) NUCLEATED RED BLOOD CELLS 0 /100 WBC 0-0 ([facility]) (test code = 413) POCT-GLUCOSE [id number] 22:11:00 Test Item Value Reference Range Interpretation Comments POC-GLUCOSE METER 149 mg/dL 70-110 H TESTED AT [place] [address] ([facility]) (test code = [facility] 1538) [address] POCT-GLUCOSE [id number] 17:52:00 Test Item Value Reference Range Interpretation Comments POC-GLUCOSE METER 122 mg/dL 70-110 H TESTED AT [place] [address] ([facility]) (test code = [facility] 1538) [address] POCT-GLUCOSE [id number] 14:26:00 Test Item Value Reference Range Interpretation Comments POC-GLUCOSE METER 98 mg/dL 70-110 TESTED AT [place] [address] ([facility]) (test code = [facility] [address] 1538) HEMOGLOBIN AND [id number] 12:47:00 Test Item Value Reference Range Interpretation Comments HEMOGLOBIN ([facility]) (test code = 9.2 GM/DL 13.7-17.5 L 410) HEMATOCRIT ([facility]) (test code = 28.3 % 40.1-51.0 L 411) POCT-GLUCOSE [id number] 09:38:00 Test Item Value Reference Range Interpretation Comments POC-GLUCOSE METER 73 mg/dL 70-110 TESTED AT [place] [address] ([facility]) (test code = [facility] [address] 1538) PROTEIN ELECTROPHORESIS, [id number] 09:21:00 Test Item Value Reference Range Interpretation Comments ALBUMIN FRACTION 3.2 g/dL 3.5-5.5 L ([facility]) (test code = 405) ALPHA 1 FRACTION 0.4 g/dL 0.2-0.4 (AKER) (test code = 389) ALPHA 2 FRACTION 0.6 g/dL 0.5-0.9 (BEAKER) (test code = 390) BETA FRACTION (BEAKER) 1.1 g/dL 0.6-1.1 (test code = 392) GAMMA GLOBULIN 2.2 g/dL 0.7-1.7 H FRACTION (BEAKER) (test code = 391) INTERPRETATION-119 Mild polyclonal (BEAKER) (test code = elevation of gamma 2615) fraction, suggesting component of chronic inflammation. No monoclonal bands detected. [id number] Amanda De Jesus MD (BEAKER) (test code = (electronic signature) 2616) PROTEIN TOTAL SERUM, 7.5 gm/dL 6.0-8.3 SPEP (BEAKER) (test code = 2660) RAD, CHEST, 1 VIEW, NON [id number] 06:47:00Reason for exam:->Post opShould this be performed [...] MDReport Verified Date/Time: 12/18/2018 06:47:21 Reading Location: [facility] B1 C[address]Y CT Body Reading Room [id number] 06:20:00 Test Item Value Reference Range Interpretation Comments MAGNESIUM (BEAKER) (test code = 2.2 mg/dL 1.6-2.6 627) CALCIUM, [id number] 06:00:00 Test Item Value Reference Range Interpretation Comments CALCIUM IONIZED (BEAKER) (test 1.09 mmol/L 1.12-1.27 L code = 698) PH, BLOOD (BEAKER) (test code = 7.34 1810) BASIC METABOLIC [id number] 05:07:00 Test Item Value Reference Range Interpretation [...] S NOT APPLICABLE FOR DIALYSIS PATIEN TS. [id number] 04:54:00 Test Item Value Reference Range Interpretation Comments PHOSPHORUS (BEAKER) (test code = 6.3 mg/dL 2.3-4.7 H 604) HEPATIC FUNCTION [id number] 04:54:00 Test Item Value Reference Range Interpretation [...] (test code = 23 U/L 6-55 347) [id number] 04:51:00 Test Item Value Reference Range Interpretation Comments PARTIAL THROMBOPLASTIN TIME 38.6 seconds 22.5-36.0 H (BEAKER) (test code = 760) PROTHROMBIN [id number] 04:50:00 Test Item Value Reference Range Interpretation Comments PROTIME (BEAKER) (test code = 16.0 seconds 11.7-14.7 H 759) INR (BEAKER) (test code = 370) 1.3 <=5.9 RECOMMENDED COUMADIN/WARFARIN INR THERAPY RANGESSTANDARD DOSE: 2.0 - 3.0 Includes: PROPHYLAXIS forvenous thrombosis, systemic embolization; TREATMENT for venous thrombosis and/or pulmonary embolus.HIGH RISK: Target INR is 2.5-3.5 for patients with mechanical heart valves.[id number] 04:50:00 Test Item Value Reference Range Interpretation Comments FIBRINOGEN LEVEL (BEAKER) (test 494 mg/dl 225-434 H code = 658) PLATELET [id number] 04:38:00 Test Item Value Reference Range Interpretation [...] WBC 0-0 (BEAKER) (test code = 413) [id number] 18:48:00 Test Item Value Reference Range Interpretation Comments MAGNESIUM (BEAKER) (test code = 2.4 mg/dL 1.6-2.6 627) POCT-GLUCOSE [id number] 18:42:00 Test Item Value Reference Range Interpretation Comments POC-GLUCOSE METER 121 mg/dL 70-110 H TESTED AT [facility] 6720 (BEAKER) (test code = [place] 1538) [address] HEMOGLOBIN AND [id number] 18:37:00 Test Item Value Reference Range Interpretation Comments HEMOGLOBIN (BEAKER) (test code = 10.0 GM/DL 13.7-17.5 L 410) HEMATOCRIT (BEAKER) (test code = 31.3 % 40.1-51.0 L 411) RAD, CHEST, 1 VIEW, NON [id number] 13:28:00Reason for exam:->post opShould this be performed [...] MDReport Verified Date/Time: 12/17/2018 13:28:23 [facility] BASIC METABOLIC [id number] 13:03:00 Test Item Value Reference Range Interpretation [...] S NOT APPLICABLE FOR DIALYSIS PATIEN TS. [id number] 12:53:00 Test Item Value Reference Range Interpretation Comments PHOSPHORUS (BEAKER) (test code = 4.3 mg/dL 2.3-4.7 604) [id number] 12:53:00 Test Item Value Reference Range Interpretation Comments MAGNESIUM (BEAKER) (test code = 1.5 mg/dL 1.6-2.6 L 627) LACTIC ACID, [id number] 12:50:00 Test Item Value Reference Range Interpretation Comments LACTATE BLOOD ARTERIAL (2) 0.9 mmol/L 0.5-2.2 (BEAKER) (test code = 2874) CBC W/PLT COUNT & AUTO [id number] 12:47:00 Test Item Value Reference Range Interpretation [...] PERCENT (BEAKER) (test code = 2801) CALCIUM, [id number] 12:26:00 Test Item Value Reference Range Interpretation Comments CALCIUM IONIZED (BEAKER) (test 1.07 mmol/L 1.12-1.27 L code = 698) PH, BLOOD (BEAKER) (test code = 7.38 1810) BLOOD GAS, [id number] 12:26:00 Test Item Value Reference Range Interpretation [...] (test code = 1819) 40.0 % CALCIUM, [id number] 10:25:00 Test Item Value Reference Range Interpretation Comments CALCIUM IONIZED (BEAKER) (test 1.09 mmol/L 1.12-1.27 L code = 698) PH, BLOOD (BEAKER) (test code = 7.45 1810) BLOOD GAS, [id number] 10:22:00 Test Item Value Reference Range Interpretation [...] code = 1819) 96.0 % SODIUM NA-STAT [id number] 10:22:00 Test Item Value Reference Range Interpretation Comments SODIUM (BEAKER) (test code = 381) 133 meq/L 135-148 L GLUCOSE-STAT [id number] 10:22:00 Test Item Value Reference Range Interpretation Comments GLUCOSE RANDOM (BEAKER) (test code 116 mg/dL 70-110 H = 652) HGB/HCT (H&H) - STAT [id number] 10:22:00 Test Item Value Reference Range Interpretation Comments HEMOGLOBIN (BEAKER) (test code = 8.9 g/dL 13.0-16.8 L 410) HEMATOCRIT (BEAKER) (test code = 26.0 % 40.0-50.0 L 411) POTASSIUM-STAT [id number] 10:20:00 Test Item Value Reference Range Interpretation Comments POTASSIUM (BEAKER) (test code = 4.0 meq/L 3.6-5.5 379) HEMOGLOBIN [id number] 09:33:00 Test Item Value Reference Range Interpretation Comments HEMOGLOBIN A1C (BEAKER) (test code = 5.9 % 4.3-6.1 368) BLOOD GAS, [id number] 09:27:00 Test Item Value Reference Range Interpretation [...] code = 1819) 100.0 % SODIUM NA-STAT [id number] 09:27:00 Test Item Value Reference Range Interpretation Comments SODIUM (BEAKER) (test code = 381) 133 meq/L 135-148 L HGB/HCT (H&H) - STAT [id number] 09:27:00 Test Item Value Reference Range Interpretation Comments HEMOGLOBIN (BEAKER) (test code = 9.4 g/dL 13.0-16.8 L 410) HEMATOCRIT (BEAKER) (test code = 28.0 % 40.0-50.0 L 411) GLUCOSE-STAT [id number] 09:26:00 Test Item Value Reference Range Interpretation Comments GLUCOSE RANDOM (BEAKER) (test code = 97 mg/dL 70-110 652) POTASSIUM-STAT [id number] 09:26:00 Test Item Value Reference Range Interpretation Comments POTASSIUM (BEAKER) (test code = 3.9 meq/L 3.6-5.5 379) CALCIUM, [id number] 09:26:00 Test Item Value Reference Range Interpretation Comments CALCIUM IONIZED (BEAKER) (test 1.17 mmol/L 1.12-1.27 code = 698) PH, BLOOD (BEAKER) (test code = 7.44 1810) BLOOD GAS, [id number] 08:32:00 Test Item Value Reference Range Interpretation [...] code = 1819) 96.0 % SODIUM NA-STAT [id number] 08:32:00 Test Item Value Reference Range Interpretation Comments SODIUM (BEAKER) (test code = 381) 133 meq/L 135-148 L GLUCOSE-STAT [id number] 08:32:00 Test Item Value Reference Range Interpretation Comments GLUCOSE RANDOM (BEAKER) (test code 113 mg/dL 70-110 H = 652) HGB/HCT (H&H) - STAT [id number] 08:32:00 Test Item Value Reference Range Interpretation Comments HEMOGLOBIN (BEAKER) (test code = 9.9 g/dL 13.0-16.8 L 410) HEMATOCRIT (BEAKER) (test code = 29.0 % 40.0-50.0 L 411) CALCIUM, [id number] 08:31:00 Test Item Value Reference Range Interpretation Comments CALCIUM IONIZED (BEAKER) (test 1.05 mmol/L 1.12-1.27 L code = 698) PH, BLOOD (BEAKER) (test code = 7.49 1810) POTASSIUM-STAT [id number] 08:29:00 Test Item Value Reference Range Interpretation Comments POTASSIUM ([facility]) (test code = 3.6 meq/L 3.6-5.5 379) POCT-GLUCOSE [id number] 06:20:00 Test Item Value Reference Range Interpretation Comments POC-GLUCOSE METER 99 mg/dL 70-110 TESTED AT [facility] 6720 ([facility]) (test code = [place] [facility] [address] 1538) [id number] 05:05:00 Test Item Value Reference Range Interpretation Comments PARTIAL THROMBOPLASTIN TIME 75.6 seconds 22.5-36.0 H ([facility]) (test code = 760) LIPID [id number] 05:04:00 Test Item Value Reference Range Interpretation Comments TRIGLYCERIDES ([facility]) (test code = 53 mg/dL 540) CHOLESTEROL ([facility]) (test code = 122 mg/dL 631) HDL CHOLESTEROL ([facility]) (test code 58 mg/dL = 976) LDL CHOLESTEROL CALCULATED ([facility]) 53 mg/dL (test code = 633) Triglyceride Reference Range: Low Risk <150 Borderline 150-199 High Risk 200-499 Very High Risk >=500Cholesterol Reference Range: Low Risk <200 Borderline 200-239 High Risk >240HDL Cholesterol Reference Range: Low Risk >=60 High Risk <40LDL Cholesterol Reference Range: Optimal <100 Near Optimal 100-129 Borderline 130-159 High 160-189 Very High >=190PROTHROMBIN [id number] 05:03:00 Test Item Value Reference Range Interpretation Comments PROTIME ([employer]) (test code = 15.4 seconds 11.7-14.7 H 759) INR ([facility]) (test code = 370) 1.2 <=5.9 RECOMMENDED COUMADIN/WARFARIN INR THERAPY RANGESSTANDARD DOSE: 2.0 - 3.0 Includes: PROPHYLAXIS forvenous thrombosis, systemic embolization; TREATMENT for venous thrombosis and/or pulmonary embolus.HIGH RISK: Target INR is 2.5-3.5 for patients with mechanical heart valves.POCT-GLUCOSE [id number] 21:17:00 Test Item Value Reference Range Interpretation Comments POC-GLUCOSE METER 223 mg/dL 70-110 H TESTED AT [facility] 6720 (BEAKER) (test code = [place] 1538) [address] COMPREHENSIVE METABOLIC [id number] 18:57:00 Test Item Value Reference Range Interpretation [...] S NOT APPLICABLE FOR DIALYSIS PATIEN TS. [id number] 18:46:00 Test Item Value Reference Range Interpretation Comments MAGNESIUM (BEAKER) (test code = 1.8 mg/dL 1.6-2.6 627) CBC W/PLT COUNT & AUTO [id number] 18:10:00 Test Item Value Reference Range Interpretation [...] PERCENT (BEAKER) (test code = 2801) POCT-GLUCOSE [id number] 17:34:00 Test Item Value Reference Range Interpretation Comments POC-GLUCOSE METER 169 mg/dL 70-110 H TESTED AT [facility] 6720 ([facility]) (test code = [place] [facility] 1538) [address] HEPARIN [id number] 13:40:00 Test Item Value Reference Range Interpretation Comments HEPARIN ANTIBODY ([facility]) (test code Negative Negative = 646) HEPARIN ANTIBODY OD ([facility]) (test 0.105 <0.400 code = 2659) 4T TOTAL SCORE ([facility]) (test code = 4 2668) Probability of HIT based on scoring system: 6-8 = High probability; 4-5 = intermediate probability;0-3 = low probabilityPOCT-GLUCOSE [id number] 12:51:00 Test Item Value Reference Range Interpretation Comments POC-GLUCOSE METER 66 mg/dL 70-110 L Notified R Toy PÉREZ/TESTED AT ([facility]) (test code = [address] 1538) [facility] 7[address] 0 POCT-GLUCOSE [id number] 07:54:00 Test Item Value Reference Range Interpretation Comments POC-GLUCOSE METER 75 mg/dL 70-110 TESTED AT [place] [address] ([facility]) (test code = [place] [facility] [address] 1538) [id number] 04:21:00 Test Item Value Reference Range Interpretation Comments PROTIME ([facility]) (test code = 15.4 seconds 11.7-14.7 H 759) INR ([facility]) (test code = 370) 1.2 <=5.9 PARTIAL THROMBOPLASTIN TIME 74.0 seconds 22.5-36.0 H ([facility]) (test code = 760) RECOMMENDED COUMADIN/WARFARIN INR THERAPY RANGESSTANDARD DOSE: 2.0 - 3.0 Includes: PROPHYLAXIS forvenous thrombosis, systemic embolization; TREATMENT for venous thrombosis and/or pulmonary embolus.HIGH RISK: Target INR is 2.5-3.5 for patients with mechanical heart valves.[id number] 04:20:00 Test Item Value Reference Range Interpretation Comments FIBRINOGEN LEVEL ([facility]) (test 525 mg/dl 225-434 H code = 658) POCT-GLUCOSE [id number] 21:25:00 Test Item Value Reference Range Interpretation Comments POC-GLUCOSE METER 129 mg/dL 70-110 H TESTED AT [place] [address] ([facility]) [facility] 1538) [address] [id number] 18:23:00 Test Item Value Reference Range Interpretation Comments PARTIAL THROMBOPLASTIN TIME 72.0 seconds 22.5-36.0 H ([facility]) (test code = 760) POCT-GLUCOSE [id number] 16:20:00 Test Item Value Reference Range Interpretation Comments POC-GLUCOSE METER 142 mg/dL 70-110 H TESTED AT [place] [address] ([facility]) (test code = [facility] Humberto [facility] 1538) [address] POCT-GLUCOSE [id number] 13:05:00 Test Item Value Reference Range Interpretation Comments POC-GLUCOSE METER 86 mg/dL 70-110 TESTED AT [place] [address] ([facility]) (test code = [facility] [place] [facility] [address] 1538) [id number] 11:19:00 Test Item Value Reference Range Interpretation Comments PARTIAL THROMBOPLASTIN TIME 72.3 seconds 22.5-36.0 H ([facility]) (test code = 760) POCT-GLUCOSE [id number] 07:56:00 Test Item Value Reference Range Interpretation Comments POC-GLUCOSE METER 87 mg/dL 70-110 TESTED AT [place] [address] ([facility]) (test code = [facility] H[place] [facility] [address] 1538) [id number] 03:13:00 Test Item Value Reference Range Interpretation Comments PARTIAL THROMBOPLASTIN TIME 97.1 seconds 22.5-36.0 H ([facility]) (test code = 760) PROTHROMBIN [id number] 03:11:00 Test Item Value Reference Range Interpretation Comments PROTIME ([facility]) (test code = 16.5 seconds 11.7-14.7 H 759) INR ([facility]) (test code = 370) 1.3 [...] WBC 0-0 (test code = 413) POCT-GLUCOSE [id number] 21:26:00 Test Item Value Reference Range Interpretation Comments POC-GLUCOSE METER 121 mg/dL 70-110 H TESTED AT [place] [address] ([facility]) (test code = [place] 1538) [address] [id number] 19:05:00 Test Item Value Reference Range Interpretation Comments PARTIAL THROMBOPLASTIN TIME 64.0 seconds 22.5-36.0 H ([facility]) (test code = 760) POCT-GLUCOSE [id number] 17:24:00 Test Item Value Reference Range Interpretation Comments POC-GLUCOSE METER 131 mg/dL 70-110 H TESTED AT [place] [address] ([facility]) (test code = [place] 1538) [address] [id number] 13:32:00 Test Item Value Reference Range Interpretation Comments PARTIAL THROMBOPLASTIN TIME 81.4 seconds 22.5-36.0 H ([facility]) (test code = 760) POCT-GLUCOSE [id number] 12:32:00 Test Item Value Reference Range Interpretation Comments POC-GLUCOSE METER 102 mg/dL 70-110 TESTED AT [place] [address] ([facility]) (test code = [place] [facility] 1538) [address] POCT-GLUCOSE [id number] 07:07:00 Test Item Value Reference Range Interpretation Comments POC-GLUCOSE METER 113 mg/dL 70-110 H TESTED AT [place] [address] ([facility]) (test code = [place] [facility] 1538) [address] [id number] 05:47:00 Test Item Value Reference Range Interpretation Comments PARTIAL THROMBOPLASTIN TIME 91.8 seconds 22.5-36.0 H ([facility]) (test code = 760) POCT-GLUCOSE [id number] 21:27:00 Test Item Value Reference Range Interpretation Comments POC-GLUCOSE METER 90 mg/dL 70-110 TESTED AT [place] [address] ([facility]) ([facility] = [facility] [address] 1538) POCT-GLUCOSE [id number] 17:46:00 Test Item Value Reference Range Interpretation Comments POC-GLUCOSE METER 175 mg/dL 70-110 H TESTED AT [place] [address] ([facility]) ([facility] = [facility] 1538) [address] POCT-GLUCOSE [id number] 17:30:00 Test Item Value Reference Range Interpretation Comments POC-GLUCOSE METER 84 mg/dL 70-110 TESTED AT [place] [address] ([facility]) (test code = [facility] H[place] [facility] [address] 1538) [id number] 13:20:00 Test Item Value Reference Range Interpretation Comments PARTIAL THROMBOPLASTIN TIME 68.4 seconds 22.5-36.0 H (AKER) (test code = 760) BASIC METABOLIC [id number] 10:36:00 Test Item Value Reference Range Interpretation [...] NOT APPLICABLE FOR DIALYSIS PATIEN TS. POCT-GLUCOSE [id number] 07:43:00 Test Item Value Reference Range Interpretation Comments POC-GLUCOSE METER 84 mg/dL 70-110 TESTED AT [facility] 6720 ([facility]) (test code = [place] [address] 1538) [id number] 06:52:00 Test Item Value Reference Range Interpretation Comments PARTIAL THROMBOPLASTIN TIME 76.5 seconds 22.5-36.0 H (AKER) (test code = 760) PROTHROMBIN [id number] 06:51:00 Test Item Value Reference Range Interpretation Comments PROTIME (BEAKER) (test code = 16.5 seconds 11.7-14.7 H 759) INR (AKER) (test code = 370) 1.3 <=5.9 RECOMMENDED [...] 0-1 PERCENT (BEAKER) (test code = 2801) [id number] 00:11:00 Test Item Value Reference Range Interpretation Comments PARTIAL THROMBOPLASTIN TIME 59.7 seconds 22.5-36.0 H (BEAKER) (test code = 760) POCT-GLUCOSE [id number] 21:33:00 Test Item Value Reference Range Interpretation Comments POC-GLUCOSE METER 113 mg/dL 70-110 H TESTED AT [place] [address] (BEAKER) (test code = [place] 1538) [address] POCT-GLUCOSE [id number] 18:08:00 Test Item Value Reference Range Interpretation Comments POC-GLUCOSE METER 128 mg/dL 70-110 H TESTED AT [place] [address] ([facility] (test code = [place] 1538) [address] [id number] 16:51:00 Test Item Value Reference Range Interpretation Comments PARTIAL THROMBOPLASTIN TIME 71.6 seconds 22.5-36.0 H (BEAKER) (test code = 760) POCT-GLUCOSE [id number] 12:39:00 Test Item Value Reference Range Interpretation Comments POC-GLUCOSE METER 124 mg/dL 70-110 H TESTED AT [place] [address] ([facility] (test code = [place] 1538) [id number] 09:07:00 Test Item Value Reference Range Interpretation Comments PARTIAL THROMBOPLASTIN TIME 96.6 seconds 22.5-36.0 H (BEAKER) (test code = 760) POCT-GLUCOSE [id number] 07:48:00 Test Item Value Reference Range Interpretation Comments POC-GLUCOSE METER 105 mg/dL 70-110 TESTED AT [place] [address] ([facility] (test code = FOSTER Paul [place] 1538) [id number] BASIC METABOLIC [id number] 01:54:00 Test Item Value Reference Range Interpretation [...] I S NOT APPLICABLE FOR DIALYSIS PATIEN [id number] 01:37:00 Test Item Value Reference Range Interpretation Comments PARTIAL THROMBOPLASTIN TIME 53.4 seconds 22.5-36.0 H (BEAKER) (test code = 760) PROTHROMBIN [id number] 01:36:00 Test Item Value Reference Range Interpretation [...] PERCENT (BEAKER) (test code = 2801) POCT-GLUCOSE [id number] 21:57:00 Test Item Value Reference Range Interpretation Comments POC-GLUCOSE METER 165 mg/dL 70-110 H TESTED AT [place] [address] ([facility]) (test [facility] = [facility] 1538) [id number] 18:46:00 Test Item Value Reference Range Interpretation Comments PARTIAL THROMBOPLASTIN TIME 39.0 seconds 22.5-36.0 H (AKER) (test code = 760) POCT-GLUCOSE [id number] 17:51:00 Test Item Value Reference Range Interpretation Comments POC-GLUCOSE METER 157 mg/dL 70-110 H TESTED AT [place] [address] ([facility] [facility]) (test code = [facility] 1538) [address] POCT-GLUCOSE [id number] 17:09:00 Test Item Value Reference Range Interpretation Comments POC-GLUCOSE METER 162 mg/dL 70-110 H TESTED AT [place] [address] ([facility]) (test code = [facility] 1538) [address] [id number] 16:07:00 Test Item Value Reference Range Interpretation Comments PARTIAL THROMBOPLASTIN TIME 117.0 seconds 22.5-36.0 H (BEAKER) (test code = 760) POCT-GLUCOSE [id number] 13:28:00 Test Item Value Reference Range Interpretation Comments POC-GLUCOSE METER 88 mg/dL 70-110 TESTED AT [facility] 6720 ([facility]) (test code = FOSTER Paul [facility] [address] 1538) [id number] 09:17:00 Test Item Value Reference Range Interpretation Comments PARTIAL THROMBOPLASTIN TIME 71.7 seconds 22.5-36.0 H (BEAKER) (test code = 760) POCT-GLUCOSE [id number] 08:07:00 Test Item Value Reference Range Interpretation Comments POC-GLUCOSE METER 137 mg/dL 70-110 H TESTED AT [facility] 6720 ([facility]) (test code = FOSTER Paul [facility] 1538) [address] [id number] 02:27:00 Test Item Value Reference Range Interpretation Comments PARTIAL THROMBOPLASTIN TIME 62.4 seconds 22.5-36.0 H (BEAKER) (test code = 760) PROTHROMBIN [id number] 02:26:00 Test Item Value Reference Range Interpretation Comments PROTIME (BEAKER) (test code = 20.0 seconds 11.7-14.7 H 759) INR (BEAKER) (test code = 370) 1.7 <=5.9 RECOMMENDED COUMADIN/WARFARIN INR THERAPY RANGESSTANDARD DOSE: 2.0 - 3.0 Includes: PROPHYLAXIS forvenous thrombosis, systemic embolization; TREATMENT for venous thrombosis and/or pulmonary embolus.HIGH RISK: Target INR is 2.5-3.5 for patients with mechanical heart valves.BASIC METABOLIC [id number] 02:02:00 Test Item Value Reference Range Interpretation [...] PATIEN TS. CBC W/PLT COUNT & AUTO [id number] 01:42:00 Test Item Value Reference Range Interpretation [...] PERCENT (BEAKER) (test code = 2801) POCT-GLUCOSE [id number] 21:12:00 Test Item Value Reference Range Interpretation Comments POC-GLUCOSE METER 199 mg/dL 70-110 H TESTED AT [place] [address] ([facility]) (test code = [facility] 1538) [address] POCT-GLUCOSE [id number] 17:39:00 Test Item Value Reference Range Interpretation Comments POC-GLUCOSE METER 145 mg/dL 70-110 H TESTED AT [place] [address] ([facility]) (test code = [facility] 1538) 18567 [id number] 17:33:00 Test Item Value Reference Range Interpretation Comments PARTIAL THROMBOPLASTIN TIME 47.3 seconds 22.5-36.0 H ([facility]) (test code = 760) POCT-GLUCOSE [id number] 12:53:00 Test Item Value Reference Range Interpretation Comments POC-GLUCOSE METER 203 mg/dL 70-110 H TESTED AT [facility] 6720 ([facility]) (test code = [facility] 1538) [address]483 POCT-GLUCOSE [id number] 08:28:00 Test Item Value Reference Range Interpretation Comments POC-GLUCOSE METER 98 mg/dL 70-110 TESTED AT [place] [id number] ([facility]) (test code = [facility] [address] 1538) BASIC METABOLIC [id number] 05:52:00 Test Item Value Reference Range Interpretation [...] NOT APPLICABLE FOR DIALYSIS PATIEN TS. PROTHROMBIN [id number] 05:51:00 Test Item Value Reference Range Interpretation [...] PERCENT (BEAKER) (test code = 2801) POCT-GLUCOSE [id number] 20:54:00 Test Item Value Reference Range Interpretation Comments POC-GLUCOSE METER 126 mg/dL 70-110 H TESTED AT [place] [address] ([facility] (test code = [facility] 1538) [address] POCT-GLUCOSE [id number] 18:47:00 Test Item Value Reference Range Interpretation Comments POC-GLUCOSE METER 70 mg/dL 70-110 TESTED AT [place] [id number] ([facility]) (test code = [facility] [address] 1538) POCT-GLUCOSE [id number] 13:25:00 Test Item Value Reference Range Interpretation Comments POC-GLUCOSE METER 120 mg/dL 70-110 H TESTED AT [facility] 6720 (BEAKER) (test code = [place]OSTER [place] 1538) [address] POCT-GLUCOSE [id number] 09:32:00 Test Item Value Reference Range Interpretation Comments POC-GLUCOSE METER 104 mg/dL 70-110 TESTED AT [facility] 6720 (BEAKER) (test code = [facility]ER Paul [facility] 1538) [address] BASIC METABOLIC [id number] 05:59:00 Test Item Value Reference Range Interpretation [...] NOT APPLICABLE FOR DIALYSIS PATIEN TS. PROTHROMBIN [id number] 05:20:00 Test Item Value Reference Range Interpretation [...] PERCENT (BEAKER) (test code = 2801) POCT-GLUCOSE [id number] 21:14:00 Test Item Value Reference Range Interpretation Comments POC-GLUCOSE METER 200 mg/dL 70-110 H TESTED AT [place] [address] ([facility] ([facility] 1538) [address]93 POCT-GLUCOSE [id number] 17:34:00 Test Item Value Reference Range Interpretation Comments POC-GLUCOSE METER 143 mg/dL 70-110 H TESTED AT [place] [address] ([facility]) (test code = [facility] 1538) [address]84 POCT-GLUCOSE [id number] 12:04:00 Test Item Value Reference Range Interpretation Comments POC-GLUCOSE METER 160 mg/dL 70-110 H TESTED AT [place] [address] ([facility]) (test code = [facility] 1538) [address] POCT-GLUCOSE [id number] 08:08:00 Test Item Value Reference Range Interpretation Comments POC-GLUCOSE METER 154 mg/dL 70-110 H TESTED AT [place] [address] ([facility] (test code = [facility] 1538) [address] BASIC METABOLIC [id number] 06:33:00 Test Item Value Reference Range Interpretation [...] S NOT APPLICABLE FOR DIALYSIS PATIEN TS. [id number] 06:01:00 Test Item Value Reference Range Interpretation Comments PARTIAL THROMBOPLASTIN TIME 117.2 seconds 22.5-36.0 H (BEAKER) (test code = 760) PROTHROMBIN TIME/[id number] 05:56:00 Test Item Value Reference Range Interpretation [...] PERCENT (BEAKER) (test code = 2801) POCT-GLUCOSE [id number] 21:37:00 Test Item Value Reference Range Interpretation Comments POC-GLUCOSE METER 121 mg/dL 70-110 H TESTED AT [place] [address] ([facility]) (test code = FOSTER Paul [facility] 1538) [address] POCT-GLUCOSE [id number] 19:01:00 Test Item Value Reference Range Interpretation Comments POC-GLUCOSE METER 191 mg/dL 70-110 H TESTED AT [place] [address] ([facility]) (test code = FOSTER Paul [facility] 1538) 49223 [id number] 18:31:00 Test Item Value Reference Range Interpretation Comments PARTIAL THROMBOPLASTIN TIME 86.2 seconds 22.5-36.0 H ([facility]) (test code = 760) POCT-GLUCOSE [id number] 13:05:00 Test Item Value Reference Range Interpretation Comments POC-GLUCOSE METER 130 mg/dL 70-110 H TESTED AT [facility] 6720 ([facility]) (test code = [facility]ER Paul [facility] 1538) [address] RAD, CHEST, 1 VIEW, NON [id number] 12:22:00Reason for exam:->pleural effusionsShould this be performed [...] MDReport Verified Date/Time: 12/07/2018 12:22:50 Reading Location: [facility] C013V Neuro Reading Room [id number] 11:39:00 Test Item Value Reference Range Interpretation Comments PARTIAL THROMBOPLASTIN TIME 100.1 seconds 22.5-36.0 H (BEAKER) (test code = 760) BODY FLUID CULTURE + GRAM [id number] 10:13:00 Test Item Value Reference Range Interpretation Comments CULTURE (BEAKER) (test No growth code = 1095) GRAM STAIN RESULT <1+ White blood cells (BEAKER) (test code = seen 1123) GRAM STAIN RESULT No organisms seen (BEAKER) (test code = 04114) POCT-GLUCOSE [id number] 08:51:00 Test Item Value Reference Range Interpretation Comments POC-GLUCOSE METER 90 mg/dL 70-110 TESTED AT [facility] 6720 (BEAKER) (test code = FOSTER Paul [facility] [address] 1538) BASIC METABOLIC [id number] 07:31:00 Test Item Value Reference Range Interpretation [...] I S NOT APPLICABLE FOR DIALYSIS PATIEN [id number] 05:21:00 Test Item Value Reference Range Interpretation Comments PARTIAL THROMBOPLASTIN TIME 104.0 seconds 22.5-36.0 H (BEAKER) (test code = 760) PROTHROMBIN [id number] 04:50:00 Test Item Value Reference Range Interpretation [...] 0-1 PERCENT (BEAKER) (test code = 2801) [id number] 20:33:00 Test Item Value Reference Range Interpretation Comments PARTIAL THROMBOPLASTIN TIME 87.6 seconds 22.5-36.0 H (BEAKER) (test code = 760) POCT-GLUCOSE [id number] 19:30:00 Test Item Value Reference Range Interpretation Comments POC-GLUCOSE METER 112 mg/dL 70-110 H TESTED AT [facility] 6720 (BEAKER) (test code = FOSTER [place] 1538) [address] [id number] 13:55:00 Test Item Value Reference Range Interpretation Comments PARTIAL THROMBOPLASTIN TIME 85.9 seconds 22.5-36.0 H (BEAKER) (test code = 760) POCT-GLUCOSE [id number] 09:12:00 Test Item Value Reference Range Interpretation Comments POC-GLUCOSE METER 112 mg/dL 70-110 H TESTED AT [facility] 6720 (BEAKER) (test code = FOSTER [place] 1538) [address] BASIC METABOLIC [id number] 08:53:00 Test Item Value Reference Range Interpretation [...] S NOT APPLICABLE FOR DIALYSIS PATIEN TS. [id number] 06:04:00 Test Item Value Reference Range Interpretation Comments PARTIAL THROMBOPLASTIN TIME 105.5 seconds 22.5-36.0 H (BEAKER) (test code = 760) PROTHROMBIN TIME/[id number] 05:44:00 Test Item Value Reference Range Interpretation [...] (test code = 2801) CT, CHEST, WITHOUT [id number] 03:17:00FINAL REPORT EXAM: CT of the chest, [...] left pleural effusion with associated compressive atelectasis. Xwjmv-st-ufrjrzvq loculated right pleural effusion with pleural thickening [...] MDReport Verified Date/Time: 12/06/2018 03:17:03 Reading Location: [facility] C[facility] CT Body Reading Room POCT-GLUCOSE [id number] 21:22:00 Test Item Value Reference Range Interpretation Comments POC-GLUCOSE METER 171 mg/dL 70-110 H TESTED AT [facility] 67 (JARROD) (test code = [facility] GOS[place] 1538) [address] POCT-GLUCOSE [id number] 17:58:00 Test Item Value Reference Range Interpretation Comments POC-GLUCOSE METER 128 mg/dL 70-110 H TESTED AT [place] [address] ([facility] (test code = [facility] Humberto [facility] 1538) [address] POCT-GLUCOSE [id number] 13:24:00 Test Item Value Reference Range Interpretation Comments POC-GLUCOSE METER 129 mg/dL 70-110 H TESTED AT [place] [address] ([facility]) (test code = [facility] 1538) [address] LACTATE DEHYDROGENASE (LDH)2018-12-05 13:14:00 Test Item Value Reference Range Interpretation Comments LACTATE DEHYDROGENASE (BEAKER) (test 291 U/L 125-220 H code = 635) [id number] 13:10:00 Test Item Value Reference Range Interpretation Comments PARTIAL THROMBOPLASTIN TIME 91.7 seconds 22.5-36.0 H (BEAKER) (test code = 760) POCT-GLUCOSE [id number] 08:19:00 Test Item Value Reference Range Interpretation Comments POC-GLUCOSE METER 106 mg/dL 70-110 TESTED AT [place] [address] ([facility]) (test code = [facility] 1538) [address] BASIC METABOLIC [id number] 07:05:00 Test Item Value Reference Range Interpretation [...] S NOT APPLICABLE FOR DIALYSIS PATIEN TS. [id number] 06:32:00 Test Item Value Reference Range Interpretation [...] 2.5-3.5 for patients with mechanical heart valves.PROTHROMBIN TIME/[id number] 06:30:00 Test Item Value Reference Range Interpretation [...] 0-1 PERCENT (BEAKER) (test code = 2801) [id number] 00:40:00 Test Item Value Reference Range Interpretation Comments PARTIAL THROMBOPLASTIN TIME 63.1 seconds 22.5-36.0 H (BEAKER) (test code = 760) POCT-GLUCOSE [id number] 00:12:00 Test Item Value Reference Range Interpretation Comments POC-GLUCOSE METER 124 mg/dL 70-110 H TESTED AT [facility] 6720 (BEAKER) (test code = [place] 1538) [address] HEPATITIS B SURFACE [id number] 22:54:00 Test Item Value Reference Range Interpretation Comments HEPATITIS B SURFACE ANTIGEN (2) Nonreactive Nonreactive (BEAKER) (test code = 2585) For chronic HD patients, draw HBsAg with each admission then every 30 days.BODY FLUID CELL COUNT WITH [id number] 20:34:00 Test Item Value Reference Range Interpretation Comments APPEARANCE FLUID (BEAKER) (test Cloudy Clear A code = 510) COLOR FLUID (BEAKER) (test code Brown Colorless, Straw A = 511) RBC FLUID (BEAKER) (test code = 11034 /cu mm <=1 H 513) ADJUSTED WBC [...] code = 2873) LACTATE DEHYDROGENASE (LDH), BODY [id number] 19:43:00 Test Item Value Reference Range Interpretation [...] local 1% lidocaine anesthesia was administered.A 4 [place] catheter was advanced into the largest pocket of the septated pleural effusion and 300 ccof bloody fluid was removed. The catheter was removed without immediate complication. Samples were sent for analysis. IMPRESSION:Uncomplicated ultrasound-guided right thoracentesis with 300 cc fluid removed. Signed: Raimundo Kim MDReport Verified Date/Time: 12/04/2018 18:00:50 Reading Location: [facility] P006J Ultrasound Reading Room RAD, CHEST, 1 VIEW, NON [id number] 17:23:00Reason for exam:->s/p right thoracentesisShould this be [...] MDReport Verified Date/Time: 12/04/2018 17:23:06 Reading Location: [facility] Mammo Reading Room C. DIFFICILE GDH [id number] 10:01:00 Test Item Value Reference Range Interpretation Comments CDT TOXIN (test code Negative Negative = [id number]) CDT GDH ANTIGEN Positive Negative A C. difficile present but (test code = toxin not detec jayla. [id number]) Indicates colon ization with non-toxige ron strain [...] of kit performance was done by the [facility] Microbiology Lab prior to clinical use.[id number] 09:39:00 Test Item Value Reference Range Interpretation Comments PARTIAL THROMBOPLASTIN TIME 79.4 seconds 22.5-36.0 H (BEAKER) (test code = 760) OCCULT BLOOD, [id number] 05:59:00 Test Item Value Reference Range Interpretation Comments FECAL OCCULT BLOOD (BEAKER) (test Negative Negative code = 618) BASIC METABOLIC [id number] 02:50:00 Test Item Value Reference Range Interpretation [...] S NOT APPLICABLE FOR DIALYSIS PATIEN TS. [id number] 02:50:00 Test Item Value Reference Range Interpretation Comments PARTIAL THROMBOPLASTIN TIME 35.3 seconds 22.5-36.0 (BEAKER) (test code = 760) Prior to initiating heparinPROTHROMBIN TIME/[id number] 02:49:00 Test Item Value Reference Range Interpretation [...] acute neurological disease, and persistent tachyarrhythmia.HEPATIC FUNCTION [id number] 02:43:00 Test Item Value Reference Range Interpretation [...] 6-55 347) CBC W/PLT COUNT & AUTO [id number] 02:21:00 Test Item Value Reference Range Interpretation [...] PERCENT (BEAKER) (test code = 2801) POCT-GLUCOSE [id number] 21:22:00 Test Item Value Reference Range Interpretation Comments POC-GLUCOSE METER 192 mg/dL 70-110 H TESTED AT [facility] 6720 (BEAKER) (test code = [facility] 1538) [address] TROPONIN [id number] 17:09:00 Test Item Value Reference Range Interpretation [...] and persistent tachyarrhythmia.RAD, CHEST, 1 VIEW, NON [id number] 15:36:00Reason for exam:->SHORTNESS OF BREATHShould this be performed at the bedside?->YesFINAL REPORT AP chest HISTORY: Shortness of breath. COMPARISON: 11/03/2017. IMPRESSION: Cardiomegaly. Mild interstitial edema. Right effusion and adjacent atelectasis. No pneumothorax. Signed: Mandy Chairez MDReport Verified Date/Time: 12/03/2018 15:36:19 Reading Location: [address] Radiology Reading Room TROPONIN [id number] 14:48:00 Test Item Value Reference Range Interpretation [...] (BEAKER) (test code = 700) BASIC METABOLIC [id number] 14:40:00 Test Item Value Reference Range Interpretation [...] S NOT APPLICABLE FOR DIALYSIS PATIEN TS. [id number] 14:34:00 Test Item Value Reference Range Interpretation [...] (test code = 2801) RAD, CHEST, 2 [id number] 15:24:00Reason for Exam:->chronic Diastolic heart FailureFINAL REPORT [...] MDReport Verified Date/Time: 11/03/2018 15:24:42 Reading Location: [address] Radiology Reading Room MISCELLANEOUS LAB [id number] 08:22:00 Test Item Value Reference Range Interpretation Comments SCAN RESULT (test code = 7596304) PROTHROMBIN TIME/[id number] 08:37:00 Test Item Value Reference Range Interpretation Comments PROTIME (BEAKER) (test code = 24.8 seconds 11.7-14.7 H 759) INR (BEAKER) (test code = 370) 2.2 <=5.9 RECOMMENDED COUMADIN/WARFARIN INR THERAPY RANGESSTANDARD DOSE: 2.0 - 3.0 Includes: PROPHYLAXIS forvenous thrombosis, systemic embolization; TREATMENT for venous thrombosis and/or pulmonary embolus.HIGH RISK: Target INR is 2.5-3.5 for patients with mechanical heart valves.POCT-GLUCOSE [id number] 08:10:00 Test Item Value Reference Range Interpretation Comments POC-GLUCOSE METER 89 mg/dL 70-110 TESTED AT [facility] 6720 (BEAKER) (test code = FOSTER Paul [facility] [address] 1538) BASIC METABOLIC [id number] 06:29:00 Test Item Value Reference Range Interpretation [...] S NOT APPLICABLE FOR DIALYSIS PATIEN TS. [id number] 06:28:00 Test Item Value Reference Range Interpretation Comments MAGNESIUM (BEAKER) (test code = 1.8 mg/dL 1.6-2.6 627) [id number] 06:14:00 Test Item Value Reference Range Interpretation Comments PARTIAL THROMBOPLASTIN TIME 64.7 seconds 22.5-36.0 H (BEAKER) (test code = 760) CBC W/PLT COUNT & AUTO [id number] 05:58:00 Test Item Value Reference Range Interpretation [...] ABSOLUTE COUNT 0.96 K/ L 1.32-3.57 L (AKER) (test code = 414) MONOCYTES ABSOLUTE COUNT (BEAKER) 0.78 K/ L 0.30-0.82 (test code = 415) EOSINOPHILS ABSOLUTE COUNT 0.11 K/ L 0.04-0.54 (BEAKER) (test code = 416) BASOPHILS ABSOLUTE COUNT (BEAKER) 0.03 K/ L 0.01-0.08 (test code = 417) IMMATURE GRANULOCYTES-RELATIVE 1 % 0-1 PERCENT ([facility]) (test code = 2801) POCT-GLUCOSE [id number] 21:14:00 Test Item Value Reference Range Interpretation Comments POC-GLUCOSE METER 135 mg/dL 70-110 H TESTED AT [place] [address] ([facility]) (test code = [place] 1538) [address] [id number] 19:36:00 Test Item Value Reference Range Interpretation Comments PARTIAL THROMBOPLASTIN TIME 88.6 seconds 22.5-36.0 H ([facility]) (test code = 760) POCT-GLUCOSE [id number] 18:27:00 Test Item Value Reference Range Interpretation Comments POC-GLUCOSE METER 88 mg/dL 70-110 TESTED AT [place] [address] ([facility]) (test code = FOSTER Paul [facility] [address] 1538) POCT-GLUCOSE [id number] 12:05:00 Test Item Value Reference Range Interpretation Comments POC-GLUCOSE METER 92 mg/dL 70-110 TESTED AT [place] [address] ([facility]) (test code = [place] [address] 1538) [id number] 11:46:00 Test Item Value Reference Range Interpretation Comments PARTIAL THROMBOPLASTIN TIME 74.3 seconds 22.5-36.0 H ([facility]) (test code = 760) POCT-GLUCOSE [id number] 10:36:00 Test Item Value Reference Range Interpretation Comments POC-GLUCOSE METER 101 mg/dL 70-110 TESTED AT [place] [address] ([facility]) (test code = FOSTER Paul [facility] 1538) [address] POCT-GLUCOSE [id number] 07:10:00 Test Item Value Reference Range Interpretation Comments POC-GLUCOSE METER 92 mg/dL 70-110 TESTED AT [place] [address] (BEAKER) (test code = [place] [address] 1538) PROTHROMBIN [id number] 01:41:00 Test Item Value Reference Range Interpretation Comments PROTIME (BEAKER) (test code = 22.8 seconds 11.7-14.7 H 759) INR (BEAKER) (test code = 370) 2.0 <=5.9 RECOMMENDED COUMADIN/WARFARIN INR THERAPY RANGESSTANDARD DOSE: 2.0 - 3.0 Includes: PROPHYLAXIS forvenous thrombosis, systemic embolization; TREATMENT for venous thrombosis and/or pulmonary embolus.HIGH RISK: Target INR is 2.5-3.5 for patients with mechanical heart valves.While on warfarin.[id number] 01:41:00 Test Item Value Reference Range Interpretation Comments PARTIAL THROMBOPLASTIN TIME 52.3 seconds 22.5-36.0 H (BEAKER) (test code = 760) While on warfarin.BASIC METABOLIC [id number] 01:37:00 Test Item Value Reference Range Interpretation [...] S NOT APPLICABLE FOR DIALYSIS PATIEN TS. [id number] 01:32:00 Test Item Value Reference Range Interpretation Comments MAGNESIUM (BEAKER) (test code = 1.8 mg/dL 1.6-2.6 627) CBC W/PLT COUNT & AUTO [id number] 01:18:00 Test Item Value Reference Range Interpretation [...] 417) IMMATURE GRANULOCYTES-RELATIVE 1 % 0-1 PERCENT ([facility]) (test code = 2801) [id number] 23:23:00 Test Item Value Reference Range Interpretation Comments PARTIAL THROMBOPLASTIN TIME 125.2 seconds 22.5-36.0 H ([facility]) (test code = 760) POCT-GLUCOSE [id number] 21:19:00 Test Item Value Reference Range Interpretation Comments POC-GLUCOSE METER 165 mg/dL 70-110 H TESTED AT [facility] 67 ([facility]) (test code = FOSTER Paul [facility] 1538) [address] POCT-GLUCOSE [id number] 18:34:00 Test Item Value Reference Range Interpretation Comments POC-GLUCOSE METER 92 mg/dL 70-110 TESTED AT [place] [address] ([facility]) (test code = FOSTER Paul [facility] [address] 1538) [id number] 17:17:00 Test Item Value Reference Range Interpretation Comments PARTIAL THROMBOPLASTIN TIME 75.2 seconds 22.5-36.0 H ([facility]) (test code = 760) POCT-GLUCOSE [id number] 12:48:00 Test Item Value Reference Range Interpretation Comments POC-GLUCOSE METER 105 mg/dL 70-110 TESTED AT [place] [address] ([facility]) (test code = [facility] Humberto [facility] 1538) [address] RAD, CHEST, 1 VIEW, NON [id number] 11:00:00Reason for exam:->eval right effusionShould this be performed at the bedside?->YesFINAL REPORT Comparison: 08/15/2018 TECHNIQUE: Single view of the chest FINDINGS: Small to moderate right pleural effusion is stable. Small left pleural effusion may be slightly increased. Vascular congestion seen. No other significant change. Signed: Kyle Rome MDReport Verified Date/Time: 08/18/2018 11:00:36 Reading Location: [facility] Radiology Reading Room Electronicallysigned by: KYLE ROME M.D. on 08/18/2018 11:00 [id number] 09:48:00 Test Item Value Reference Range Interpretation Comments PARTIAL THROMBOPLASTIN TIME 48.8 seconds 22.5-36.0 H ([facility]) (test code = 760) POCT-GLUCOSE [id number] 07:37:00 Test Item Value Reference Range Interpretation Comments POC-GLUCOSE METER 96 mg/dL 70-110 TESTED AT [facility] 6720 (BEAKER) (test code = [place] [id number]) BASIC METABOLIC [id number] 02:24:00 Test Item Value Reference Range Interpretation [...] S NOT APPLICABLE FOR DIALYSIS PATIEN TS. [id number] 02:22:00 Test Item Value Reference Range Interpretation Comments MAGNESIUM (BEAKER) (test code = 1.7 mg/dL 1.6-2.6 627) [id number] 02:15:00 Test Item Value Reference Range Interpretation Comments PARTIAL THROMBOPLASTIN TIME 98.9 seconds 22.5-36.0 H (BEAKER) (test code = 760) PROTHROMBIN [id number] 02:13:00 Test Item Value Reference Range Interpretation [...] PERCENT (BEAKER) (test code = 2801) POCT-GLUCOSE [id number] 21:51:00 Test Item Value Reference Range Interpretation Comments POC-GLUCOSE METER 98 mg/dL 70-110 TESTED AT [place] [address] ([facility] (test code = [facility] [address] 1538) [id number] 18:51:00 Test Item Value Reference Range Interpretation Comments PARTIAL THROMBOPLASTIN TIME 56.1 seconds 22.5-36.0 H (BEAKER) (test code = 760) [id number] 17:06:00 Test Item Value Reference Range Interpretation Comments PARTIAL THROMBOPLASTIN TIME 121.9 seconds 22.5-36.0 H (BEAKER) (test code = 760) POCT-GLUCOSE [id number] 16:46:00 Test Item Value Reference Range Interpretation Comments POC-GLUCOSE METER 135 mg/dL 70-110 H TESTED AT [place] [address] ([facility] (test code = [facility] 1538) [address] POCT-GLUCOSE [id number] 13:28:00 Test Item Value Reference Range Interpretation Comments POC-GLUCOSE METER 96 mg/dL 70-110 TESTED AT [place] [address] ([facility] (test code = [facility] [address] 1538) [id number] 09:15:00 Test Item Value Reference Range Interpretation Comments PARTIAL THROMBOPLASTIN TIME 58.1 seconds 22.5-36.0 H (BEAKER) (test code = 760) BASIC METABOLIC [id number] 07:31:00 Test Item Value Reference Range Interpretation [...] S NOT APPLICABLE FOR DIALYSIS PATIEN TS. [id number] 07:19:00 Test Item Value Reference Range Interpretation Comments PHOSPHORUS (BEAKER) (test code = 3.7 mg/dL 2.3-4.7 604) [id number] 07:19:00 Test Item Value Reference Range Interpretation Comments MAGNESIUM (BEAKER) (test code = 1.7 mg/dL 1.6-2.6 627) [id number] 07:07:00 Test Item Value Reference Range Interpretation Comments PARTIAL THROMBOPLASTIN TIME 124.4 seconds 22.5-36.0 H (BEAKER) (test code = 760) PROTHROMBIN [id number] 07:02:00 Test Item Value Reference Range Interpretation [...] (test code = 416) BASOPHILS ABSOLUTE COUNT ([facility]) 0.04 K/ L 0.01-0.08 (test code = 417) IMMATURE GRANULOCYTES-RELATIVE 1 % 0-1 PERCENT ([facility]) (test code = 2801) [id number] 23:01:00 Test Item Value Reference Range Interpretation Comments PARTIAL THROMBOPLASTIN TIME 46.5 seconds 22.5-36.0 H ([facility]) (test code = 760) POCT-GLUCOSE [id number] 22:45:00 Test Item Value Reference Range Interpretation Comments POC-GLUCOSE METER 144 mg/dL 70-110 H TESTED AT [place] [address] ([facility]) (test code = [facility]ER [facility] 1538) [address] [id number] 15:02:00 Test Item Value Reference Range Interpretation Comments PARTIAL THROMBOPLASTIN TIME 56.1 seconds 22.5-36.0 H ([facility]) (test code = 760) POCT-GLUCOSE [id number] 14:39:00 Test Item Value Reference Range Interpretation Comments POC-GLUCOSE METER 189 mg/dL 70-110 H TESTED AT [place] [address] ([facility]) (test code = [facility] Humberto [facility] 1538) [address] HIV-1 PCR, [id number] 13:58:00 Test Item Value Reference Range Interpretation Comments HIV-1 NUMERIC RESULT ([facility]) (test 170 Cp/mL <20 H code = 2704) This test uses a Real-Time Polymerase Chain Reaction (RT-PCR) methodology to detect a highly conserved region of the HIV-1 gag gene and was performed using the ERICH AmpliPrep/ERICH TaqMan HIV-1 test kit version 2.0 ([employer]Reportable range for this assay is 20 - 10,000,000 copies per mL (1.3 - 7.0 Log copies/mL).[id number] 12:54:00 Test Item Value Reference Range Interpretation Comments PARTIAL THROMBOPLASTIN TIME 143.6 seconds 22.5-36.0 H ([facility]) (test code = 760) [id number] 10:00:00Medical Cytology Report Case: [id number] Authorizing Provider: Alison Solano MD Collected: 08/13/2018 0428 Ordering Location: [address] Received: 08/14/2018 0923 Service Pathologist: Yamil Hamm MD Specimen: Pleural, Right RIGHT PLEURAL FLUID (CYTOSPINS AND CELL BLOCK): - NO MALIGNANT CELLS IDENTIFIED (SEE COMMENT) Signing Pathologist Direct Phone Line: [phone] signed by Yamil Hamm MD on 08/16/2018 [...] thoracentesis may be considered when fluid reaccumulates. 26807, 67923, 66276, 71181 x 2Left pleural effusion, history of AIDS, Kaposi's sarcoma, hepatitis C.RIGHT PLEURAL FLUID 300 mls bloody; 4 cytospins, cell blockCollected: [id number]: [id number] interpretation of this case included the use of immunohistochemistry or special stains. Please see the immunohistochemistry results in the COMMENT section. Immunohistochemistry technical testing was performed at [facility], Pathology Laboratory where it was developed [...] as qualified toperform high complexity clinical laboratory testing.[facility], Department of Pathology, [address] [place] [address], [facility], Department of Pathology, [address] [place] [address], [facility], [facility], [address] [facility], [place] [address], LUOB-GLUCOSE [id number] 08:29:00 Test Item Value Reference Range Interpretation Comments POC-GLUCOSE METER 96 mg/dL 70-110 TESTED AT [facility] 6720 (BEAKER) (test code = [facility] [address] 1534) BODY FLUID CULTURE + GRAM [id number] 07:54:00 Test Item Value Reference Range Interpretation Comments CULTURE (BEAKER) (test code No growth = 1095) GRAM STAIN RESULT (BEAKER) <1+ WBCs (test code = 1123) GRAM STAIN RESULT (BEAKER) No organisms seen (test code = 69490) BASIC METABOLIC [id number] 06:30:00 Test Item Value Reference Range Interpretation [...] S NOT APPLICABLE FOR DIALYSIS PATIEN TS. [id number] 06:26:00 Test Item Value Reference Range Interpretation Comments MAGNESIUM (BEAKER) (test code = 1.6 mg/dL 1.6-2.6 627) [id number] 05:48:00 Test Item Value Reference Range Interpretation Comments PARTIAL THROMBOPLASTIN TIME 80.3 seconds 22.5-36.0 H (BEAKER) (test code = 760) While on warfarin.PROTHROMBIN TIME/[id number] 05:46:00 Test Item Value Reference Range Interpretation [...] valves.While on warfarin.CBC W/PLT COUNT & AUTO [id number] 05:28:00 Test Item Value Reference Range Interpretation [...] 0-1 PERCENT (BEAKER) (test code = 2801) [id number] 22:09:00 Test Item Value Reference Range Interpretation Comments PARTIAL THROMBOPLASTIN TIME 61.5 seconds 22.5-36.0 H (BEAKER) (test code = 760) RAD, CHEST, 1 VIEW, NON [id number] 20:20:00Reason for exam:->eval right effusionShould this be [...] Anderson Verified Date/Time: 08/15/2018 20:20:24 Reading Location: [facility] Radiology Reading Room POCT-GLUCOSE [id number] 19:05:00 Test Item Value Reference Range Interpretation Comments POC-GLUCOSE METER 87 mg/dL 70-110 TESTED AT [facility] 6720 ([facility]) (test code = [facility]ER Paul [facility] [address] 1538) POCT-GLUCOSE [id number] 13:12:00 Test Item Value Reference Range Interpretation Comments POC-GLUCOSE METER 162 mg/dL 70-110 H TESTED AT [facility] 6720 ([facility]) (test code = [place] 1538) [address] [id number] 12:48:00 Test Item Value Reference Range Interpretation Comments PARTIAL THROMBOPLASTIN TIME 89.1 seconds 22.5-36.0 H (BEAKER) (test code = 760) POCT-GLUCOSE [id number] 09:58:00 Test Item Value Reference Range Interpretation Comments POC-GLUCOSE METER 229 mg/dL 70-110 H TESTED AT [facility] 6720 ([facility]) (test code = [facility] Paul [facility] 1538) [address] BASIC METABOLIC [id number] 05:40:00 Test Item Value Reference Range Interpretation [...] PATIEN TS. CBC W/PLT COUNT & AUTO [id number] 05:38:00 Test Item Value Reference Range Interpretation [...] 0-1 PERCENT (BEAKER) (test code = 2801) [id number] 05:28:00 Test Item Value Reference Range Interpretation Comments MAGNESIUM (BEAKER) (test code = 1.8 mg/dL 1.6-2.6 627) [id number] 04:47:00 Test Item Value Reference Range Interpretation Comments PARTIAL THROMBOPLASTIN TIME 60.9 seconds 22.5-36.0 H (BEAKER) (test code = 760) PROTHROMBIN [id number] 04:46:00 Test Item Value Reference Range Interpretation Comments PROTIME (BEAKER) (test code = 17.9 seconds 11.7-14.7 H 759) INR (BEAKER) (test code = 370) 1.5 <=5.9 RECOMMENDED COUMADIN/WARFARIN INR THERAPY RANGESSTANDARD DOSE: 2.0 - 3.0 Includes: PROPHYLAXIS forvenous thrombosis, systemic embolization; TREATMENT for venous thrombosis and/or pulmonary embolus.HIGH RISK: Target INR is 2.5-3.5 for patients with mechanical heart valves.[id number] 20:56:00 Test Item Value Reference Range Interpretation Comments PARTIAL THROMBOPLASTIN TIME 52.1 seconds 22.5-36.0 H (BEAKER) (test code = 760) CT, CHEST, WITHOUT [id number] 19:06:00S/p fall in Jul--> right effusion, tapped [...] MDReport Verified Date/Time: 08/14/2018 19:06:09 Reading Location: [address] Reading Room [id number] 12:40:00 Test Item Value Reference Range Interpretation Comments PARTIAL THROMBOPLASTIN TIME 48.4 seconds 22.5-36.0 H (BEAKER) (test code = 760) CD4 T CELL [id number] 11:15:00 Test Item Value Reference Range Interpretation [...] 107-698 L (BEAKER) (test code = 3491) [id number] 10:48:00 Test Item Value Reference Range Interpretation Comments PHOSPHORUS (BEAKER) (test code = 5.2 mg/dL 2.3-4.7 H 604) BASIC METABOLIC [id number] 07:13:00 Test Item Value Reference Range Interpretation [...] S NOT APPLICABLE FOR DIALYSIS PATIEN TS. [id number] 07:11:00 Test Item Value Reference Range Interpretation Comments MAGNESIUM (BEAKER) (test code = 1.8 mg/dL 1.6-2.6 627) [id number] 07:00:00 Test Item Value Reference Range Interpretation Comments PARTIAL THROMBOPLASTIN TIME 59.2 seconds 22.5-36.0 H (BEAKER) (test code = 760) PROTHROMBIN TIME/[id number] 06:59:00 Test Item Value Reference Range Interpretation [...] 0-1 PERCENT (BEAKER) (test code = 2801) [id number] 00:30:00 Test Item Value Reference Range Interpretation Comments PARTIAL THROMBOPLASTIN TIME 56.7 seconds 22.5-36.0 H (BEAKER) (test code = 760) BODY FLUID CELL COUNT WITH [id number] 19:28:00 Test Item Value Reference Range Interpretation Comments APPEARANCE FLUID (BEAKER) (test Cloudy Clear A code = 510) COLOR FLUID (BEAKER) (test code Red Colorless, Straw A = 511) RBC FLUID (BEAKER) (test code = 45945 /cu mm <=1 H 513) ADJUSTED WBC [...] Tube (test code = 2873) ALBUMIN, BODY [id number] 18:40:00 Test Item Value Reference Range Interpretation Comments ALBUMIN FLUID (BEAKER) (test code = 2.1 gm/dL 501) Reference Range: No Normals Assay performance has not been validated for this type of specimen.LACTATE DEHYDROGENASE (LDH), BODY [id number] 18:40:00 Test Item Value Reference Range Interpretation [...] 125-220 H code = 635) HEPATIC FUNCTION [id number] 18:40:00 Test Item Value Reference Range Interpretation [...] 6-55 347) RAD, CHEST, 1 VIEW, NON [id number] 17:56:00Reason for exam:->post Right thoracentesisShould this be [...] MDReport Verified Date/Time: 08/13/2018 17:56:18 Reading Location: [address] Consult Reading Room U/S, [id number] 16:22:00Reason for exam:->shortness of breath, recurrent right pleural effusionShould this be performed at the bedside?->NoFINAL REPORT Ultrasound guided right thoracentesis, 08/13/2018. Clinical His tory: Right pleural effusion. Modality: Ultrasound. Sedation: None. Salt Maker: Gini. Plumber Cub: None. Estimated Blood Loss: 1cc Specimen: 1600 [...] Musaeport Verified Date/Time: 08/13/2018 16:22:16 Reading Location: [facility] P006J Ultrasound Reading Room [id number] 07:18:00 Test Item Value Reference Range Interpretation Comments MAGNESIUM (BEAKER) (test code = 2.0 mg/dL 1.6-2.6 627) BASIC METABOLIC [id number] 07:18:00 Test Item Value Reference Range Interpretation [...] PATIEN TS. RAD, CHEST, 1 VIEW, NON [id number] 06:25:00Reason for exam:->SOBShould this be performed at [...] Taylor Verified Date/Time: 08/13/2018 06:25:21 Reading Location: [address] ading Room [id number] 05:49:00 Test Item Value Reference Range Interpretation Comments PARTIAL THROMBOPLASTIN TIME 42.0 seconds 22.5-36.0 H (BEAKER) (test code = 760) PROTHROMBIN TIME/[id number] 05:48:00 Test Item Value Reference Range Interpretation [...] PERCENT (BEAKER) (test code = 2801) POCT-GLUCOSE [id number] 18:30:00 Test Item Value Reference Range Interpretation Comments POC-GLUCOSE METER 80 mg/dL 70-110 TESTED AT [facility] 6720 (BEAKER) (test code = [facility] [address] 1538) RAD, CHEST, 1 VIEW, NON [id number] 13:46:00Reason for exam:->evaluate pleural effusionShould this be performed at the bedside?->YesFINAL REPORT Comparison: 08/02/2018 TECHNIQUE: Single view of the chest FINDINGS Bilateral interstitial and airspace opacities are stable. Bilateral pleural effusions seen, right greater than left. No gross new lung parenchymal changes. Post surgical changes in the mediastinum. IMPRESSION: No significant interval change. Signed: Kyle Rome MDReport Verified Date/Time: 08/06/2018 13:46:20 Reading Location: [facility] Radiology Reading Room [id number] 09:33:00 Test Item Value Reference Range Interpretation Comments PARTIAL THROMBOPLASTIN TIME 113.6 seconds 22.5-36.0 H (BEAKER) (test code = 760) [id number] 06:48:00 Test Item Value Reference Range Interpretation [...] heart valves.While on warfarin.While on warfarin.BASIC METABOLIC [id number] 06:45:00 Test Item Value Reference Range Interpretation [...] NOT APPLICABLE FOR DIALYSIS PATIEN TS. PROTHROMBIN [id number] 06:43:00 Test Item Value Reference Range Interpretation [...] WBC 0-0 (BEAKER) (test code = 413) [id number] 20:40:00 Test Item Value Reference Range Interpretation Comments PARTIAL THROMBOPLASTIN TIME 81.7 seconds 22.5-36.0 H (BEAKER) (test code = 760) [id number] 14:05:00 Test Item Value Reference Range Interpretation Comments PARTIAL THROMBOPLASTIN TIME 91.5 seconds 22.5-36.0 H (BEAKER) (test code = 760) BASIC METABOLIC [id number] 07:02:00 Test Item Value Reference Range Interpretation [...] S NOT APPLICABLE FOR DIALYSIS PATIEN TS. [id number] 06:47:00 Test Item Value Reference Range Interpretation [...] valves.Ok to add onOk to add onPROTHROMBIN TIME/[id number] 06:46:00 Test Item Value Reference Range Interpretation [...] 0-1 PERCENT (BEAKER) (test code = 2801) [id number] 16:22:00 Test Item Value Reference Range Interpretation Comments PARTIAL THROMBOPLASTIN TIME 76.1 seconds 22.5-36.0 H (BEAKER) (test code = 760) BODY FLUID CULTURE + GRAM [id number] 09:10:00 Test Item Value Reference Range Interpretation Comments CULTURE (BEAKER) (test code No growth = 1095) GRAM STAIN RESULT (BEAKER) <1+ WBCs (test code = 1123) GRAM STAIN RESULT (BEAKER) No organisms seen (test code = 39895) CBC W/PLT COUNT & AUTO [id number] 07:23:00 Test Item Value Reference Range Interpretation [...] (BEAKER) (test code = 413) BASIC METABOLIC [id number] 07:05:00 Test Item Value Reference Range Interpretation [...] S NOT APPLICABLE FOR DIALYSIS PATIEN TS. [id number] 06:53:00 Test Item Value Reference Range Interpretation [...] heart valves.Ok to add onOk to add [id number] 06:53:00 Test Item Value Reference Range Interpretation Comments PARTIAL THROMBOPLASTIN TIME 70.3 seconds 22.5-36.0 H (BEAKER) (test code = 760) PROTHROMBIN TIME/[id number] 06:52:00 Test Item Value Reference Range Interpretation Comments PROTIME (BEAKER) (test code = 17.5 seconds 11.7-14.7 H 759) INR (BEAKER) (test code = 370) 1.4 <=5.9 RECOMMENDED COUMADIN/WARFARIN INR THERAPY RANGESSTANDARD DOSE: 2.0 - 3.0 Includes: PROPHYLAXIS forvenous thrombosis, systemic embolization; TREATMENT for venous thrombosis and/or pulmonary embolus.HIGH RISK: Target INR is 2.5-3.5 for patients with mechanical heart valves.PROTHROMBIN TIME/[id number] 06:51:00 Test Item Value Reference Range Interpretation Comments PROTIME (BEAKER) (test code = 17.7 seconds 11.7-14.7 H 759) INR (BEAKER) (test code = 370) 1.5 <=5.9 RECOMMENDED COUMADIN/WARFARIN INR THERAPY RANGESSTANDARD DOSE: 2.0 - 3.0 Includes: PROPHYLAXIS forvenous thrombosis, systemic embolization; TREATMENT for venous thrombosis and/or pulmonary embolus.HIGH RISK: Target INR is 2.5-3.5 for patients with mechanical heart valves.While on warfarin.[id number] 22:47:00 Test Item Value Reference Range Interpretation Comments PARTIAL THROMBOPLASTIN TIME 73.6 seconds 22.5-36.0 H (BEAKER) (test code = 760) [id number] 13:08:00 Test Item Value Reference Range Interpretation Comments PARTIAL THROMBOPLASTIN TIME 49.2 seconds 22.5-36.0 H (BEAKER) (test code = 760) BASIC METABOLIC [id number] 06:56:00 Test Item Value Reference Range Interpretation [...] S NOT APPLICABLE FOR DIALYSIS PATIEN TS. [id number] 06:56:00 Test Item Value Reference Range Interpretation Comments PARTIAL THROMBOPLASTIN TIME 67.5 seconds 22.5-36.0 H (BEAKER) (test code = 760) [id number] 06:45:00 Test Item Value Reference Range Interpretation [...] valves.Ok to add onOk to add onPROTHROMBIN TIME/[id number] 06:44:00 Test Item Value Reference Range Interpretation [...] /100 WBC 0-0 (test code = 413) [id number] 02:18:00 Test Item Value Reference Range Interpretation Comments PARTIAL THROMBOPLASTIN TIME 67.1 seconds 22.5-36.0 H (BEAKER) (test code = 760) [id number] 18:56:00 Test Item Value Reference Range Interpretation Comments PARTIAL THROMBOPLASTIN TIME 72.5 seconds 22.5-36.0 H (BEAKER) (test code = 760) POCT-GLUCOSE [id number] 13:08:00 Test Item Value Reference Range Interpretation Comments POC-GLUCOSE METER 121 mg/dL 70-110 H TESTED AT [facility] 6720 (BEAKER) (test code = FOSTER Paul [place] 1538) [address] [id number] 12:07:00 Test Item Value Reference Range Interpretation Comments PARTIAL THROMBOPLASTIN TIME 50.7 seconds 22.5-36.0 H (BEAKER) (test code = 760) Ok to add onPROTHROMBIN TIME/[id number] 12:05:00 Test Item Value Reference Range Interpretation [...] = 413) RAD, CHEST, 1 VIEW, NON [id number] 11:24:00Reason for exam:->pleural effusionShould this be performed at the bedside?->YesFINAL REPORT AP chest HISTORY: Pleural effusion COMPARISON: 08/01/2018 IMPRESS ION:Intact skeleton. Cardiomegaly. Moderate interstitial edema. Moderate right and small left effusions. No pneumothorax. Signed: Mandy Chairez MDReport Verified Date/Time: 08/02/2018 11:24:33 Reading Location: [address] Ortho Consult Reading Room BASIC METABOLIC [id number] 02:55:00 Test Item Value Reference Range Interpretation [...] I S NOT APPLICABLE FOR DIALYSIS PATIEN [id number] 02:39:00 Test Item Value Reference Range Interpretation Comments PARTIAL THROMBOPLASTIN TIME 51.6 seconds 22.5-36.0 H (BEAKER) (test code = 760) CBC W/PLT COUNT & AUTO [id number] 02:30:00 Test Item Value Reference Range Interpretation [...] = 2801) BODY FLUID CELL COUNT WITH [id number] 21:13:00 Test Item Value Reference Range Interpretation Comments APPEARANCE FLUID (BEAKER) (test Bloody Clear A code = 510) COLOR FLUID (BEAKER) (test code Sunil Colorless, Straw A = 511) RBC FLUID (BEAKER) (test code = 39802 /cu mm <=1 H 513) ADJUSTED WBC [...] Tube (test code = 2873) ALBUMIN, BODY [id number] 20:00:00 Test Item Value Reference Range Interpretation Comments ALBUMIN FLUID (BEAKER) (test code = 2.1 gm/dL 501) Reference Range: No Normals Assay performance has not been validated for this type of specimen.LACTATE DEHYDROGENASE (LDH), BODY [id number] 20:00:00 Test Item Value Reference Range Interpretation [...] of specimen.RAD, CHEST, PA OR AP, 1 [id number] 17:08:00Ultrasound Room 1Reason for exam:->s/p Right sided [...] MDReport Verified Date/Time: 08/01/2018 17:08:13 Reading Location: [facility] Radiology Reading Room U/S, [id number] 17:03:00 Laterality?->RightReason for exam:->large pleural effusionFINAL REPORT HISTORY: Right pleural effusion Following informed written consent, the patient's right posterior chest wall was prepped and draped in the usual sterile manner. 2% lidocaine was given locally for anesthesia. No conscious sedation was administered. Vital signs were monitored and remained stable. Using ultrasound guidance and a 5 [place] angiocatheter, access was gain ed to the [...] Seymour Verified Date/Time: 08/01/2018 17:03:15 Reading Location: [address] Ultrasound Reading Room RAD, CHEST, 1 VIEW, NON [id number] 12:40:00Reason for exam:->pleural effusion; shortness of breathShould [...] MDReport Verified Date/Time: 08/01/2018 12:40:42 Reading Location: [facility] Radiology Reading Room APTT 2018-08-01 11:33:00 Test Item Value Reference Range Interpretation Comments PARTIAL THROMBOPLASTIN TIME 118.1 seconds 22.5-36.0 H (BEAKER) (test code = 760) BASIC METABOLIC [id number] 02:07:00 Test Item Value Reference Range Interpretation [...] S NOT APPLICABLE FOR DIALYSIS PATIEN TS. [id number] 01:55:00 Test Item Value Reference Range Interpretation [...] is 2.5-3.5 for patients with mechanical heart valves.[id number] 01:55:00 Test Item Value Reference Range Interpretation Comments PARTIAL THROMBOPLASTIN TIME 96.8 seconds 22.5-36.0 H (BEAKER) (test code = 760) CBC W/PLT COUNT & AUTO [id number] 01:38:00 Test Item Value Reference Range Interpretation [...] 0-1 PERCENT (BEAKER) (test code = 2801) [id number] 18:58:00 Test Item Value Reference Range Interpretation Comments PARTIAL THROMBOPLASTIN TIME 61.7 seconds 22.5-36.0 H (BEAKER) (test code = 760) [id number] 09:22:00 Test Item Value Reference Range Interpretation Comments PARTIAL THROMBOPLASTIN TIME 61.5 seconds 22.5-36.0 H (BEAKER) (test code = 760) BASIC METABOLIC [id number] 02:14:00 Test Item Value Reference Range Interpretation [...] S NOT APPLICABLE FOR DIALYSIS PATIEN TS. [id number] 01:43:00 Test Item Value Reference Range Interpretation [...] is 2.5-3.5 for patients with mechanical heart valves.[id number] 01:43:00 Test Item Value Reference Range Interpretation Comments PARTIAL THROMBOPLASTIN TIME 62.7 seconds 22.5-36.0 H (BEAKER) (test code = 760) CBC W/PLT COUNT & AUTO [id number] 01:32:00 Test Item Value Reference Range Interpretation [...] 0-1 PERCENT (BEAKER) (test code = 2801) [id number] 18:38:00 Test Item Value Reference Range Interpretation Comments PARTIAL THROMBOPLASTIN TIME 38.9 seconds 22.5-36.0 H (BEAKER) (test code = 760) Prior to initiating heparinPLATELET [id number] 18:17:00 Test Item Value Reference Range Interpretation Comments PLATELET COUNT (BEAKER) (test 115 K/CU MM 150-450 L code = 756) RAD, CHEST, 2 [id number] 18:05:00Reason for exam:->sob and pleural effusionFINAL REPORT [...] Sykes MDReport Verified Date/Time: 07/30/2018 18:05:46Reading Location: [address] Consult Reading Room C METABOLIC [id number] 05:26:00 Test Item Value Reference Range Interpretation [...] S NOT APPLICABLE FOR DIALYSIS PATIEN TS. [id number] 05:25:00 Test Item Value Reference Range Interpretation [...] 2.5-3.5 for patients with mechanical heart valves.PROTHROMBIN TIME/[id number] 05:24:00 Test Item Value Reference Range Interpretation [...] (test code = 2801) HEPATITIS B SURFACE [id number] 12:09:00 Test Item Value Reference Range Interpretation Comments HEPATITIS B SURFACE ANTIGEN (2) Nonreactive Nonreactive (BEAKER) (test code = 2585) POCT-GLUCOSE [id number] 07:50:00 Test Item Value Reference Range Interpretation Comments POC-GLUCOSE METER 93 mg/dL 70-110 TESTED AT [facility] 6720 (BEAKER) (test code = [place] [address] 1538) [id number] 04:59:00 Test Item Value Reference Range Interpretation [...] for patients with mechanical heart valves.BASIC METABOLIC [id number] 04:59:00 Test Item Value Reference Range Interpretation [...] PATIEN TS. CBC W/PLT COUNT & AUTO [id number] 04:51:00 Test Item Value Reference Range Interpretation [...] (test code = 2801) AFB CULTURE + [id number] 16:13:00 Test Item Value Reference Range Interpretation Comments CULTURE (BEAKER) (test No acid-fast bacilli code = 1095) isolated in 42 days AFB SMEAR (BEAKER) No acid fast bacilli (test code = 994) seen AFB CULTURE + [id number] 16:13:00 Test Item Value Reference Range Interpretation Comments CULTURE (BEAKER) (test No acid-fast bacilli code = 1095) isolated in 42 days AFB SMEAR (BEAKER) No acid fast bacilli (test code = 994) seen FUNGUS CULTURE + [id number] 07:13:00 Test Item Value Reference Range Interpretation Comments CULTURE (BEAKER) (test No fungus isolated in code = 1095) 28 days FUNGUS SMEAR (BEAKER) No fungi seen (test code = 1406) FUNGUS CULTURE + [id number] 07:13:00 Test Item Value Reference Range Interpretation Comments CULTURE (BEAKER) (test No fungus isolated in code = 1095) 28 days FUNGUS SMEAR (BEAKER) No fungi seen (test code = 1406) TISSUE [id number] 19:17:00Surgical Pathology Report Case: [id number] Authorizing Provider: Juliana Martinez MD Collected: 05/23/2018824 Ordering Location: [facility] Received: 05/23/2018 0923 SERVICES Pathologist: Brigida Parks MD Specimen: Soft Tissue, Other, LEFT GROIN - TISSUE BIOPSY SKIN AND SOFT TISSUE,GROIN,LEFT, BIOPSY: - ABSCESSES, GRANULOMAS AND CHRONIC INFLAMMATION - NEGATIVE FOR DYSPLASIA OR MALIGNANCY - AFB AND GMS STAINS ARE NEGATIVE (SEE COMMENT) Signing Pathologist Direct Phone Line: [phone] signed by Brigida Parks MD on 06/02/2018 at 7:17 PMCorrelation with culture studies is recommended.[id number] abscess groinLeft groin tissue biopsyReceived fresh labeled "soft tissue, other", description "left groin tissue biopsy" are two dark-porter, wrinkled,hair- bearing strips of skin measuring 1.5 and 2.6 cm in length, 0.3 cm in diameter and excised to a depth of 0.3 cm.Sectioning reveals no discrete masses.The specimen is entirely submitted in cassettesA1. DB/ewPOCT-GLUCOSE [id number] 08:51:00 Test Item Value Reference Range Interpretation Comments POC-GLUCOSE METER 101 mg/dL 70-110 TESTED AT [facility] 0186 ([facility]) (test code = [place] 1538) [address] CBC W/PLT COUNT & AUTO [id number] 06:01:00 Test Item Value Reference Range Interpretation [...] PERCENT (BEAKER) (test code = 2801) PROTHROMBIN [id number] 05:51:00 Test Item Value Reference Range Interpretation Comments PROTIME (BEAKER) (test code = 25.9 seconds 11.7-14.7 H 759) INR (BEAKER) (test code = 370) 2.4 <=5.9 RECOMMENDED COUMADIN/WARFARIN INR THERAPY RANGESSTANDARD DOSE: 2.0 - 3.0 Includes: PROPHYLAXIS forvenous thrombosis, systemic embolization; TREATMENT for venous thrombosis and/or pulmonary embolus.HIGH RISK: Target INR is 2.5-3.5 for patients with mechanical heart valves.BASIC METABOLIC [id number] 05:46:00 Test Item Value Reference Range Interpretation [...] NOT APPLICABLE FOR DIALYSIS PATIEN TS. POCT-GLUCOSE [id number] 20:34:00 Test Item Value Reference Range Interpretation Comments POC-GLUCOSE METER 261 mg/dL 70-110 H TESTED AT [facility] 6720 ([employer]) (test code = [place] 1538) [address] POCT-GLUCOSE [id number] 18:12:00 Test Item Value Reference Range Interpretation Comments POC-GLUCOSE METER 139 mg/dL 70-110 H TESTED AT [facility] 6720 ([employer]) (test code = [place] 1538) [address] POCT-GLUCOSE [id number] 11:51:00 Test Item Value Reference Range Interpretation Comments POC-GLUCOSE METER 147 mg/dL 70-110 H TESTED AT [facility] 6720 (BEAKER) (test code = [place] 1538) [address] POCT-GLUCOSE [id number] 08:42:00 Test Item Value Reference Range Interpretation Comments POC-GLUCOSE METER 104 mg/dL 70-110 TESTED AT [facility] 6720 (BEAKER) (test code = [place] 1538) [address] CBC W/PLT COUNT & AUTO [id number] 06:56:00 Test Item Value Reference Range Interpretation [...] (BEAKER) (test code = 2801) BASIC METABOLIC [id number] 06:49:00 Test Item Value Reference Range Interpretation [...] NOT APPLICABLE FOR DIALYSIS PATIEN TS. PROTHROMBIN [id number] 06:46:00 Test Item Value Reference Range Interpretation Comments PROTIME (BEAKER) (test code = 26.9 seconds 11.7-14.7 H 759) INR (BEAKER) (test code = 370) 2.5 <=5.9 RECOMMENDED COUMADIN/WARFARIN INR THERAPY RANGESSTANDARD DOSE: 2.0 - 3.0 Includes: PROPHYLAXIS forvenous thrombosis, systemic embolization; TREATMENT for venous thrombosis and/or pulmonary embolus.HIGH RISK: Target INR is 2.5-3.5 for patients with mechanical heart valves.ANAEROBIC [id number] 00:38:00 Test Item Value Reference Range Interpretation Comments CULTURE ([facility]) (test No anaerobes isolated code = 1095) ANAEROBIC [id number] 00:38:00 Test Item Value Reference Range Interpretation Comments CULTURE ([facility]) (test No anaerobes isolated code = 1095) POCT-GLUCOSE [id number] 20:43:00 Test Item Value Reference Range Interpretation Comments POC-GLUCOSE METER 124 mg/dL 70-110 H TESTED AT [place] [address] ([facility]) (test code = FOSTER Paul [facility] 1538) [address] POCT-GLUCOSE [id number] 17:17:00 Test Item Value Reference Range Interpretation Comments POC-GLUCOSE METER 190 mg/dL 70-110 H TESTED AT [place] [address] ([facility]) (test code = [place]ER Paul [facility] 1538) [address] POCT-GLUCOSE [id number] 11:54:00 Test Item Value Reference Range Interpretation Comments POC-GLUCOSE METER 195 mg/dL 70-110 H TESTED AT [place] [address] ([facility]) (test code = [place] Paul [facility] 1538) [address] C. DIFFICILE GDH [id number] 11:16:00 Test Item Value Reference Range Interpretation Comments CDT TOXIN (test code Negative Negative = [id number]) CDT GDH ANTIGEN (test Negative Negative No ind ication of code = [id number]) Clostridi um difficile infection and n o colonization. Discontinue ent kenrick isolation and t herapy. Testing performed by [employer] Rapid Cassette Assay. For GDH, published sensitivity of the assay is 98.7% compared to cytotoxicity testing. For Toxin AB, published sensitivity is 87.8% and specificity 99.4% compared to cytotoxicity testing.Verification of kit performance was done by the [facility] Microbiology Lab prior to clinical use.SURGICALLY OBTAINED CULTURE + GRAM [id number] 09:22:00 Test Item Value Reference Interpretation Comments Range CULTURE ([facility]) COAGULASE NEGATIVE A <1+ C oagulase (test [...] No organisms seen (BEAKER) (test code = 349629) SURGICALLY OBTAINED CULTURE + GRAM [id number] 09:20:00 Test Item Value Reference Range Interpretation Comments CULTURE (BEAKER) (test code No growth = 1095) GRAM STAIN RESULT (BEAKER) 4+ WBCs (test code = 1123) GRAM STAIN RESULT (BEAKER) No organisms seen (test code = 41074) POCT-GLUCOSE [id number] 08:21:00 Test Item Value Reference Range Interpretation Comments POC-GLUCOSE METER 101 mg/dL 70-110 TESTED AT [facility] 6720 (BEAKER) (test code = MARIA GOSMAN [place] 1538) [address] BASIC METABOLIC [id number] 07:57:00 Test Item Value Reference Range Interpretation [...] GFR I S NOT APPLICABLE FOR DIALYSIS AUBRIE TS. PROTHROMBIN [id number] 06:36:00 Test Item Value Reference Range Interpretation [...] PERCENT (BEAKER) (test code = 2801) POCT-GLUCOSE [id number] 21:40:00 Test Item Value Reference Range Interpretation Comments POC-GLUCOSE METER 176 mg/dL 70-110 H TESTED AT [place] [address] ([facility]) (test code = [facility] 1538) [address] POCT-GLUCOSE [id number] 16:07:00 Test Item Value Reference Range Interpretation Comments POC-GLUCOSE METER 120 mg/dL 70-110 H TESTED AT [place] [address] ([facility]) (test code = [facility] 1538) [address] POCT-GLUCOSE [id number] 08:31:00 Test Item Value Reference Range Interpretation Comments POC-GLUCOSE METER 119 mg/dL 70-110 H TESTED AT [place] [address] ([facility]) (test code = [facility] 1538) [address] BASIC METABOLIC [id number] 08:19:00 Test Item Value Reference Range Interpretation [...] APPLICABLE FOR DIALYSIS PATIEN TS. VANCOMYCIN LEVEL, [id number] 08:16:00 Test Item Value Reference Range Interpretation Comments VANCOMYCIN RANDOM (BEAKER) (test 17.6 ug/mL code = 523) Reference Range: No NormalsPROTHROMBIN [id number] 07:21:00 Test Item Value Reference Range Interpretation [...] PERCENT (BEAKER) (test code = 2801) BLOOD [id number] 06:00:00 Test Item Value Reference Range Interpretation Comments CULTURE (BEAKER) (test No growth in 5 days code = 1095) BLOOD [id number] 00:00:00 Test Item Value Reference Range Interpretation Comments CULTURE (BEAKER) (test No growth in 5 days code = 1095) POCT-GLUCOSE [id number] 22:05:00 Test Item Value Reference Range Interpretation Comments POC-GLUCOSE METER 169 mg/dL 70-110 H TESTED AT [facility] 6720 (BEAKER) (test code = [place] 1538) [address] POCT-GLUCOSE [id number] 18:20:00 Test Item Value Reference Range Interpretation Comments POC-GLUCOSE METER 110 mg/dL 70-110 TESTED AT [facility] 6720 (BEAKER) (test code = [place]ER Paul [facility] 1538) [address] POCT-GLUCOSE [id number] 17:17:00 Test Item Value Reference Range Interpretation Comments POC-GLUCOSE METER 99 mg/dL 70-110 TESTED AT [place] [address] (BEAKER) (test code = [facility] Humberto [facility] [address] 1538) SPIN/CONCENTRATION [id number] 14:49:00 Test Item Value Reference Range Interpretation Comments CONCENTRATION CHARGED (BEAKER) (test Done code = 2657) SPIN/CONCENTRATION [id number] 14:49:00 Test Item Value Reference Range Interpretation Comments CONCENTRATION CHARGED (BEAKER) (test Done code = 2657) POCT-GLUCOSE [id number] 12:13:00 Test Item Value Reference Range Interpretation Comments POC-GLUCOSE METER 188 mg/dL 70-110 H TESTED AT [place] [address] (BEAKER) (test code = [facility] 1538) [address] BASIC METABOLIC [id number] 09:56:00 Test Item Value Reference Range Interpretation [...] NOT APPLICABLE FOR DIALYSIS PATIEN TS. POCT-GLUCOSE [id number] 07:45:00 Test Item Value Reference Range Interpretation Comments POC-GLUCOSE METER 108 mg/dL 70-110 TESTED AT [place] [address] (BEAKER) (test code = [facility] 1538) [address] CBC W/PLT COUNT & AUTO [id number] 07:00:00 Test Item Value Reference Range Interpretation [...] IMMATURE GRANULOCYTES-RELATIVE 3 % 0-1 H PERCENT ([facility]) (test code = 2801) PROTHROMBIN [id number] 06:47:00 Test Item Value Reference Range Interpretation Comments PROTIME (BEAKER) (test code = 20.7 seconds 11.7-14.7 H 759) INR ([facility]) (test code = 370) 1.8 <=5.9 RECOMMENDED COUMADIN/WARFARIN INR THERAPY RANGESSTANDARD DOSE: 2.0 - 3.0 Includes: PROPHYLAXIS forvenous thrombosis, systemic embolization; TREATMENT for venous thrombosis and/or pulmonary embolus.HIGH RISK: Target INR is 2.5-3.5 for patients with mechanical heart valves.POCT-GLUCOSE [id number] 20:42:00 Test Item Value Reference Range Interpretation Comments POC-GLUCOSE METER 134 mg/dL 70-110 H TESTED AT [place] [address] ([facility]) (test code = [facility] Humberto [facility] 1538) [address] POCT-GLUCOSE [id number] 13:29:00 Test Item Value Reference Range Interpretation Comments POC-GLUCOSE METER 209 mg/dL 70-110 H TESTED AT [place] [address] ([facility]) (test code = [facility] 1538) [address] POCT-GLUCOSE [id number] 08:53:00 Test Item Value Reference Range Interpretation Comments POC-GLUCOSE METER 103 mg/dL 70-110 TESTED AT [place] [address] ([facility]) (test code = [facility] 1538) [address] BASIC METABOLIC [id number] 07:47:00 Test Item Value Reference Range Interpretation [...] DIALYSIS PATIEN TS. WOUND CULTURE + GRAM [id number] 07:44:00 Test Item Value Reference Range Interpretation Comments CULTURE (BEAKER) (test code No growth = 1095) GRAM STAIN RESULT (BEAKER) No WBCs (test code = 1123) GRAM STAIN RESULT (BEAKER) No organisms seen (test code = 96655) [id number] 07:38:00 Test Item Value Reference Range Interpretation Comments PHOSPHORUS (BEAKER) (test code = 3.2 mg/dL 2.3-4.7 604) CBC W/PLT COUNT & AUTO [id number] 06:35:00 Test Item Value Reference Range Interpretation [...] PERCENT (BEAKER) (test code = 2801) PROTHROMBIN [id number] 06:32:00 Test Item Value Reference Range Interpretation Comments PROTIME (BEAKER) (test code = 23.2 seconds 11.7-14.7 H 759) INR (BEAKER) (test code = 370) 2.1 <=5.9 RECOMMENDED COUMADIN/WARFARIN INR THERAPY RANGESSTANDARD DOSE: 2.0 - 3.0 Includes: PROPHYLAXIS forvenous thrombosis, systemic embolization; TREATMENT for venous thrombosis and/or pulmonary embolus.HIGH RISK: Target INR is 2.5-3.5 for patients with mechanical heart valves.POCT-GLUCOSE [id number] 21:21:00 Test Item Value Reference Range Interpretation Comments POC-GLUCOSE METER 177 mg/dL 70-110 H TESTED AT [facility] 6720 ([facility]) (test code = [facility] 1538) [address] POCT-GLUCOSE [id number] 17:53:00 Test Item Value Reference Range Interpretation Comments POC-GLUCOSE METER 89 mg/dL 70-110 TESTED AT [facility] 6720 ([facility]) (test code = [facility] [address] 1538) IRON, TIBC, % SAT. (WITHOUT FERRITIN)2018-05-22 17:45:00 Test Item Value Reference Range Interpretation Comments IRON (BEAKER) (test code = 547) 63 ug/dL 40-160 TOTAL IRON BINDING CAPACITY 203 ug/dL 250-450 L (BEAKER) (test code = 769) IRON % SATURATION (2) (BEAKER) 31 % 20-55 (test code = 2590) [id number] 16:07:00 Test Item Value Reference Range Interpretation Comments PHOSPHORUS (BEAKER) (test code = 5.4 mg/dL 2.3-4.7 H 604) POCT-GLUCOSE [id number] 12:41:00 Test Item Value Reference Range Interpretation Comments POC-GLUCOSE METER 110 mg/dL 70-110 TESTED AT [facility] 67 (BEAKER) ([facility] 1538) [address] POCT-GLUCOSE [id number] 07:00:00 Test Item Value Reference Range Interpretation Comments POC-GLUCOSE METER 159 mg/dL 70-110 H TESTED AT [place] [address] ([facility] (test code = [facility] Humberto [facility] 1538) [address] BASIC METABOLIC [id number] 05:19:00 Test Item Value Reference Range Interpretation [...] S NOT APPLICABLE FOR DIALYSIS PATIRUBÉN TS. [id number] 05:18:00 Test Item Value Reference Range Interpretation Comments MAGNESIUM (BEAKER) (test code = 1.9 mg/dL 1.6-2.6 627) PROTHROMBIN [id number] 05:03:00 Test Item Value Reference Range Interpretation [...] PERCENT (BEAKER) (test code = 2801) POCT-GLUCOSE [id number] 23:35:00 Test Item Value Reference Range Interpretation Comments POC-GLUCOSE METER 190 mg/dL 70-110 H TESTED AT [facility] 67 ([facility] (test code = [facility] Humberto [facility] 1538) [address] POCT-GLUCOSE [id number] 17:16:00 Test Item Value Reference Range Interpretation Comments POC-GLUCOSE METER 122 mg/dL 70-110 H TESTED AT [place] [address] ([facility]) (test code = [facility] 1538) [address] U/S, TESTICULAR (SCROTUM)2018-05-21 14:53:00Reason for exam:->testicular swellingFINAL [...] or lymphocele is a consideration. Signed: Reagan [facility] Verified Date/Time: 05/21/2018 14:53:00 Reading Location: [address] UltrasoundReading Room POCT- GLUCOSE [id number] 11:22:00 Test Item Value Reference Range Interpretation Comments POC-GLUCOSE METER 144 mg/dL 70-110 H TESTED AT [facility] 6720 (BEAKER) (test code = FOSTER Paul [facility] 1538) [address] POCT-GLUCOSE [id number] 07:05:00 Test Item Value Reference Range Interpretation Comments POC-GLUCOSE METER 171 mg/dL 70-110 H TESTED AT [facility] 6720 (BEAKER) (test code = FOSTER Paul [facility] 1538) [address] BASIC METABOLIC [id number] 06:19:00 Test Item Value Reference Range Interpretation [...] S NOT APPLICABLE FOR DIALYSIS PATIEN TS. [id number] 06:04:00 Test Item Value Reference Range Interpretation Comments MAGNESIUM (BEAKER) (test code = 1.9 mg/dL 1.6-2.6 627) PROTHROMBIN [id number] 05:31:00 Test Item Value Reference Range Interpretation [...] PERCENT (BEAKER) (test code = 2801) POCT-GLUCOSE [id number] 21:29:00 Test Item Value Reference Range Interpretation Comments POC-GLUCOSE METER 156 mg/dL 70-110 H TESTED AT [place] [address] ([facility]) (test code = [place] 1538) [address] POCT-GLUCOSE [id number] 18:14:00 Test Item Value Reference Range Interpretation Comments POC-GLUCOSE METER 93 mg/dL 70-110 TESTED AT [place] [address] ([facility]) (test code = [facility] Humberto [facility] [address] 1538) PROTHROMBIN [id number] 13:26:00 Test Item Value Reference Range Interpretation Comments PROTIME ([facility] (test code = 42.0 seconds 11.7-14.7 H [...] Range ChangeNew: 0.5-2.2 mmol/L Previous: 5-20 mg/dLPOCT-GLUCOSE [id number] 12:04:00 Test Item Value Reference Range Interpretation Comments POC-GLUCOSE METER 111 mg/dL 70-110 H TESTED AT [facility] 6720 ([facility]) (test code = [place]ER [place] 1538) [address] CD4 T CELL [id number] 12:04:00 Test Item Value Reference Range Interpretation Comments CD4/CD8 RATIO FC (BEAKER) (test code = 0.76 0.70-3.23 2126) HEPATITIS B SURFACE [id number] 11:32:00 Test Item Value Reference Range Interpretation Comments HEPATITIS B SURFACE ANTIGEN (2) Nonreactive Nonreactive (BEAKER) (test code = 2585) VANCOMYCIN LEVEL, [id number] 11:10:00 Test Item Value Reference Range Interpretation Comments VANCOMYCIN RANDOM (BEAKER) (test 20.7 ug/mL code = 523) Reference Range: No NormalsBASIC METABOLIC [id number] 09:19:00 Test Item Value Reference Range Interpretation [...] S NOT APPLICABLE FOR DIALYSIS PATIEN TS. [id number] 09:16:00 Test Item Value Reference Range Interpretation Comments MAGNESIUM (BEAKER) (test code = 2.1 mg/dL 1.6-2.6 627) RAD, CHEST, 1 VIEW, NON [id number] 07:56:00Reason for exam:->pleural effusion seen on outside hospital imagingShould this be performed at the bedside?->YesFINAL REPORT Chest one view compared to February 23 Discussion: Small effusions are similar. Replaced cardiac valve and atrial appendage clip noted. No pneumothorax. Unchanged cardiac pulmonary appearance. Signed: Rhea Colindreseport Verified Date/Time: 05/20/2018 07:56:50 Reading Location: [facility] Radiology Reading Room POCT-GLUCOSE [id number] 07:32:00 Test Item Value Reference Range Interpretation Comments POC-GLUCOSE METER 105 mg/dL 70-110 TESTED AT [facility] 6720 ([facility]) (test code = FOSTER Paul [place] 1538) [address] CBC W/PLT COUNT & AUTO [id number] 07:01:00 Test Item Value Reference Range Interpretation [...] (BEAKER) (test code = 2801) VANCOMYCIN LEVEL, [id number] 22:39:00 Test Item Value Reference Range Interpretation Comments VANCOMYCIN RANDOM (BEAKER) (test 22.0 ug/mL code = 523) Reference Range: No NormalsCOMPREHENSIVE METABOLIC [id number] 22:39:00 Test Item Value Reference Range Interpretation [...] S NOT APPLICABLE FOR DIALYSIS PATIEN TS. [id number] 22:38:00 Test Item Value Reference Range Interpretation Comments PHOSPHORUS (BEAKER) (test code = 4.5 mg/dL 2.3-4.7 604) [id number] 22:38:00 Test Item Value Reference Range Interpretation Comments MAGNESIUM (BEAKER) (test code = 2.0 mg/dL 1.6-2.6 627) [id number] 22:29:00 Test Item Value Reference Range Interpretation Comments PARTIAL THROMBOPLASTIN TIME 45.0 seconds 22.5-36.0 H (BEAKER) (test code = 760) PROTHROMBIN [id number] 22:28:00 Test Item Value Reference Range Interpretation Comments PROTIME (BEAKER) (test code = 48.1 seconds 11.7-14.7 H 759) INR (BEAKER) (test code = 370) 5.2 <=5.9 RECOMMENDED COUMADIN/WARFARIN INR THERAPY RANGESSTANDARD DOSE: 2.0 - 3.0 Includes: PROPHYLAXIS forvenous thrombosis, systemic embolization; TREATMENT for venous thrombosis and/or pulmonary embolus.HIGH RISK: Target INR is 2.5-3.5 for patients with mechanical heart valves.POCT-GLUCOSE [id number] 21:38:00 Test Item Value Reference Range Interpretation Comments POC-GLUCOSE METER 105 mg/dL 70-110 TESTED AT [facility] 6720 (JARROD) (test code = [place] 1538) [address] XR Ankle Complete 3+ Views [id number] 22:30:07Patient: CALEB LUGO Date/Time05/12/2018 22:24 CDTReason for [...] FSigned (Electronic Signature): 05/12/2018 9:48 amBASIC METABOLIC [id number] 11:15:00 Test Item Value Reference Range Interpretation [...] (BEAKER) (test code = 700) BASIC METABOLIC [id number] 02:55:00 Test Item Value Reference Range Interpretation [...] H (BEAKER) (test code = 700) TROPONIN [id number] 02:30:00 Test Item Value Reference Range Interpretation [...] failure, acidosis, acute neurological disease, and persistent tachyarrhythmia.[id number] 02:21:00 Test Item Value Reference Range Interpretation Comments MAGNESIUM (BEAKER) (test code = 1.8 mg/dL 1.6-2.6 627) CBC W/PLT COUNT & AUTO [id number] 00:24:00 Test Item Value Reference Range Interpretation [...] 0-1 PERCENT (BEAKER) (test code = 2801) [id number] 00:01:00 Test Item Value Reference Range Interpretation [...] mechanical heart valves.RAD, CHEST, 1 VIEW, NON [id number] 23:39:00Reason for exam:->chest painShould this be performed [...] Wan Verified Date/Time: 02/23/2018 23:39:58 Reading Location: [address] Reading Room POCT-GLUCOSE [id number] 19:47:00 Test Item Value Reference Range Interpretation Comments POC-GLUCOSE METER 94 mg/dL 70-110 TESTED AT [place] [address] ([facility]) (test code = [facility] [address] 1538) POCT-GLUCOSE [id number] 17:07:00 Test Item Value Reference Range Interpretation Comments POC-GLUCOSE METER 176 mg/dL 70-110 H TESTED AT [place] [address] ([facility]) (test code = [facility] 1538) [id number] POCT-GLUCOSE [id number] 12:31:00 Test Item Value Reference Range Interpretation Comments POC-GLUCOSE METER 84 mg/dL 70-110 TESTED AT [place] [address] ([facility]) (test code = [facility] [address] 1538) [id number] 10:40:00 Test Item Value Reference Range Interpretation Comments PARTIAL THROMBOPLASTIN TIME 88.5 seconds 22.5-36.0 H ([facility]) (test code = 760) OCCULT BLOOD, [id number] 09:36:00 Test Item Value Reference Range Interpretation Comments FECAL OCCULT BLOOD ([facility]) (test Negative Negative code = 618) POCT-GLUCOSE [id number] 08:51:00 Test Item Value Reference Range Interpretation Comments POC-GLUCOSE METER 223 mg/dL 70-110 H TESTED AT [place] [address] ([facility]) (test code = [place] 1538) [address] [id number] 04:14:00 Test Item Value Reference Range Interpretation Comments PARTIAL THROMBOPLASTIN TIME 80.3 seconds 22.5-36.0 H ([facility]) (test code = 760) While on warfarin.PROTHROMBIN TIME/[id number] 04:13:00 Test Item Value Reference Range Interpretation Comments PROTIME ([facility]) (test code = 23.8 seconds 11.7-14.7 H 759) INR ([facility]) (test code = 370) 2.1 <=5.9 RECOMMENDED COUMADIN/WARFARIN INR THERAPY RANGESSTANDARD DOSE: 2.0 - 3.0 Includes: PROPHYLAXIS forvenous thrombosis, systemic embolization; TREATMENT for venous thrombosis and/or pulmonary embolus.HIGH RISK: Target INR is 2.5-3.5 for patients with mechanical heart valves.While on warfarin.POCT-GLUCOSE METER 2018-02-02 21:56:00 Test Item Value Reference Range Interpretation Comments POC-GLUCOSE METER 206 mg/dL 70-110 H TESTED AT [place] [address] ([facility]) (test code = [place] 1538) [address] [id number] 19:50:00 Test Item Value Reference Range Interpretation Comments PARTIAL THROMBOPLASTIN TIME 59.7 seconds 22.5-36.0 H ([facility]) (test code = 760) POCT-GLUCOSE [id number] 17:00:00 Test Item Value Reference Range Interpretation Comments POC-GLUCOSE METER 183 mg/dL 70-110 H TESTED AT [place] [address] ([facility]) (test code = [place] 1538) [address] [id number] 12:45:00 Test Item Value Reference Range Interpretation Comments PARTIAL THROMBOPLASTIN TIME 89.5 seconds 22.5-36.0 H ([facility]) (test code = 760) CBC W/PLT COUNT & AUTO [id number] 12:04:00 Test Item Value Reference Range Interpretation Comments WHITE BLOOD CELL COUNT ([facility]) 4.8 K/ L 3.5-10.5 (test [...] WBC 0-0 (test code = 413) POCT-GLUCOSE [id number] 11:54:00 Test Item Value Reference Range Interpretation Comments POC-GLUCOSE METER 124 mg/dL 70-110 H TESTED AT [place] [address] ([facility] (test code = [place] 1538) [address] POCT-GLUCOSE [id number] 07:48:00 Test Item Value Reference Range Interpretation Comments POC-GLUCOSE METER 178 mg/dL 70-110 H TESTED AT [place] [address] ([facility] ([facility] [place] [facility]) [address] BASIC METABOLIC [id number] 05:15:00 Test Item Value Reference Range Interpretation [...] S NOT APPLICABLE FOR DIALYSIS PATIEN TS. [id number] 04:51:00 Test Item Value Reference Range Interpretation Comments MAGNESIUM (BEAKER) (test code = 1.8 mg/dL 1.6-2.6 627) [id number] 04:36:00 Test Item Value Reference Range Interpretation Comments PARTIAL THROMBOPLASTIN TIME 91.9 seconds 22.5-36.0 H ([facility]) (test code = 760) While on warfarin.PROTHROMBIN TIME/[id number] 04:34:00 Test Item Value Reference Range Interpretation [...] METER 126 mg/dL 70-110 H TESTED AT [facility] 67[address] ([facility]) (test code = [place] 1538) [address] [id number] 21:23:00 Test Item Value Reference Range Interpretation Comments PARTIAL THROMBOPLASTIN TIME 84.1 seconds 22.5-36.0 H ([facility]) (test code = 760) POCT-GLUCOSE [id number] 16:57:00 Test Item Value Reference Range Interpretation Comments POC-GLUCOSE METER 156 mg/dL 70-110 H TESTED AT [facility] 67 ([facility]) (test code = [place] 1538) [address] [id number] 14:11:00 Test Item Value Reference Range Interpretation Comments PARTIAL THROMBOPLASTIN TIME 96.5 seconds 22.5-36.0 H ([facility]) (test code = 760) POCT-GLUCOSE [id number] 08:24:00 Test Item Value Reference Range Interpretation Comments POC-GLUCOSE METER 169 mg/dL 70-110 H TESTED AT [place] [address] ([facility]) (test code = [place] 1538) [address] POCT-GLUCOSE [id number] 06:49:00 Test Item Value Reference Range Interpretation Comments POC-GLUCOSE METER 172 mg/dL 70-110 H TESTED AT [place] [address] ([facility]) (test code = [place] 1538) [address] [id number] 04:59:00 Test Item Value Reference Range Interpretation Comments PARTIAL THROMBOPLASTIN TIME 64.7 seconds 22.5-36.0 H ([facility]) (test code = 760) While on warfarin.PROTHROMBIN [id number] 04:57:00 Test Item Value Reference Range Interpretation Comments PROTIME ([facility]) (test code = 17.5 seconds 11.7-14.7 H 759) INR ([facility]) (test code = 370) 1.4 <=5.9 RECOMMENDED COUMADIN/WARFARIN INR THERAPY RANGESSTANDARD DOSE: 2.0 - 3.0 Includes: PROPHYLAXIS forvenous thrombosis, systemic embolization; TREATMENT for venous thrombosis and/or pulmonary embolus.HIGH RISK: Target INR is 2.5-3.5 for patients with mechanical heart valves.While on warfarin.[id number] 21:55:00 Test Item Value Reference Range Interpretation Comments PARTIAL THROMBOPLASTIN TIME 68.8 seconds 22.5-36.0 H ([facility]) (test code = 760) [id number] 13:54:00 Test Item Value Reference Range Interpretation Comments PARTIAL THROMBOPLASTIN TIME 51.7 seconds 22.5-36.0 H ([facility]) (test code = 760) POCT-GLUCOSE [id number] 11:56:00 Test Item Value Reference Range Interpretation Comments POC-GLUCOSE METER 101 mg/dL 70-110 TESTED AT [facility] 67[address] (BEAKER) (test code = [place] 1538) [address] POCT-GLUCOSE [id number] 07:58:00 Test Item Value Reference Range Interpretation Comments POC-GLUCOSE METER 111 mg/dL 70-110 H TESTED AT [facility] 6720 (BEAKER) (test code = [place] 1538) [address] BASIC METABOLIC [id number] 05:35:00 Test Item Value Reference Range Interpretation [...] S NOT APPLICABLE FOR DIALYSIS PATIEN TS. [id number] 05:34:00 Test Item Value Reference Range Interpretation Comments PHOSPHORUS (BEAKER) (test code = 4.2 mg/dL 2.3-4.7 604) [id number] 05:34:00 Test Item Value Reference Range Interpretation Comments MAGNESIUM (BEAKER) (test code = 1.7 mg/dL 1.6-2.6 627) PROTHROMBIN TIME/[id number] 05:24:00 Test Item Value Reference Range Interpretation Comments PROTIME (BEAKER) (test code = 18.8 seconds 11.7-14.7 H 759) INR (BEAKER) (test code = 370) 1.6 <=5.9 RECOMMENDED COUMADIN/WARFARIN INR THERAPY RANGESSTANDARD DOSE: 2.0 - 3.0 Includes: PROPHYLAXIS forvenous thrombosis, systemic embolization; TREATMENT for venous thrombosis and/or pulmonary embolus.HIGH RISK: Target INR is 2.5-3.5 for patients with mechanical heart valves.[id number] 05:05:00 Test Item Value Reference Range Interpretation Comments PARTIAL THROMBOPLASTIN TIME 96.6 seconds 22.5-36.0 H ([facility]) (test code = 760) CBC W/PLT COUNT & AUTO [id number] 04:54:00 Test Item Value Reference Range Interpretation [...] (BEAKER) (test code = 2801) OCCULT BLOOD, [id number] 22:44:00 Test Item Value Reference Range Interpretation Comments FECAL OCCULT BLOOD (AKER) (test Positive Negative A code = 618) [id number] 21:14:00 Test Item Value Reference Range Interpretation Comments PARTIAL THROMBOPLASTIN TIME 69.1 seconds 22.5-36.0 H ([facility]) (test code = 760) POCT-GLUCOSE [id number] 20:49:00 Test Item Value Reference Range Interpretation Comments POC-GLUCOSE METER 160 mg/dL 70-110 H TESTED AT [place] [address] ([facility]) (test code = [place] [facility] 1538) [address] POCT-GLUCOSE [id number] 17:59:00 Test Item Value Reference Range Interpretation Comments POC-GLUCOSE METER 128 mg/dL 70-110 H TESTED AT [place] [address] ([facility]) (test code = [place] [facility] 1538) [address] POCT-GLUCOSE [id number] 13:31:00 Test Item Value Reference Range Interpretation Comments POC-GLUCOSE METER 70 mg/dL 70-110 TESTED AT [place] [address] ([facility]) ([facility] [address]38) [id number] 13:16:00 Test Item Value Reference Range Interpretation Comments PARTIAL THROMBOPLASTIN TIME 78.3 seconds 22.5-36.0 H ([facility]) (test code = 760) POCT-GLUCOSE [id number] 12:47:00 Test Item Value Reference Range Interpretation Comments POC-GLUCOSE METER 49 mg/dL 70-110 L TESTED AT [facility] 6720 (BEAKER) (test code = [place] [facility] [address]38) POCT-GLUCOSE [id number] 09:05:00 Test Item Value Reference Range Interpretation Comments POC-GLUCOSE METER 306 mg/dL 70-110 H TESTED AT [facility] 6720 (BEAKER) ([facility] = [facility] 1538) [address] OCCULT BLOOD, [id number] 06:52:00 Test Item Value Reference Range Interpretation Comments FECAL OCCULT BLOOD (BEAKER) (test Positive Negative A code = 618) [id number] 05:42:00 Test Item Value Reference Range Interpretation [...] 20-55 (test code = 2590) BASIC METABOLIC [id number] 03:53:00 Test Item Value Reference Range Interpretation [...] S NOT APPLICABLE FOR DIALYSIS PATIEN TS. [id number] 03:51:00 Test Item Value Reference Range Interpretation Comments PHOSPHORUS (BEAKER) (test code = 3.2 mg/dL 2.3-4.7 604) [id number] 03:51:00 Test Item Value Reference Range Interpretation Comments PARTIAL THROMBOPLASTIN TIME 122.0 seconds 22.5-36.0 H (BEAKER) (test code = 760) While on warfarin.PROTHROMBIN [id number] 03:48:00 Test Item Value Reference Range Interpretation Comments PROTIME (BEAKER) (test code = 16.3 seconds 11.7-14.7 H 759) INR (BEAKER) (test code = 370) 1.3 <=5.9 RECOMMENDED COUMADIN/WARFARIN INR THERAPY RANGESSTANDARD DOSE: 2.0 - 3.0 Includes: PROPHYLAXIS forvenous thrombosis, systemic embolization; TREATMENT for venous thrombosis and/or pulmonary embolus.HIGH RISK: Target INR is 2.5-3.5 for patients with mechanical heart valves.While on warfarin.[id number] 03:44:00 Test Item Value Reference Range Interpretation Comments MAGNESIUM (BEAKER) (test code = 1.7 mg/dL 1.6-2.6 627) CBC W/PLT COUNT & AUTO [id number] 03:38:00 Test Item Value Reference Range Interpretation [...] PERCENT (BEAKER) (test code = 2803) POCT-GLUCOSE [id number] 23:35:00 Test Item Value Reference Range Interpretation Comments POC-GLUCOSE METER 149 mg/dL 70-110 H TESTED AT [facility] 6720 (BEAKER) (test code = [place] 1538) [address] [id number] 20:08:00 Test Item Value Reference Range Interpretation Comments PARTIAL THROMBOPLASTIN TIME 55.6 seconds 22.5-36.0 H (BEAKER) (test code = 760) [id number] 15:10:00 Test Item Value Reference Range Interpretation Comments PARTIAL THROMBOPLASTIN TIME 81.4 seconds 22.5-36.0 H (BEAKER) (test code = 760) POCT-GLUCOSE [id number] 11:58:00 Test Item Value Reference Range Interpretation Comments POC-GLUCOSE METER 124 mg/dL 70-110 H TESTED AT [facility] 67 ([facility]) (test code = [place] [facility] 1538) [address] RAD, CHEST, 1 VIEW, NON [id number] 08:59:00Reason for exam:->s/p mvrShould this be performed at the bedside?->YesFINAL REPORT Chest one view compared to January 24 Discussion: Left IJ line, atrial appendage clip, cardiac valve replacement noted. Mild interstitial congestion. No gross effusion or pneumothorax. IMPRESSIONS: No significant change Signed: Rhea Colindreseport Verified Date/Time:01/29/2018 08:59:39 Reading Location: [facility] Radiology Reading Room POCT-GLUCOSE [id number] 07:41:00 Test Item Value Reference Range Interpretation Comments POC-GLUCOSE METER 113 mg/dL 70-110 H TESTED AT [facility] 67 ([facility]) (test code = [place] [facility] 1538) [address] [id number] 07:23:00 Test Item Value Reference Range Interpretation Comments PARTIAL THROMBOPLASTIN TIME 89.8 seconds 22.5-36.0 H ([facility]) (test code = 760) BASIC METABOLIC [id number] 06:05:00 Test Item Value Reference Range Interpretation [...] NOT APPLICABLE FOR DIALYSIS PATIEN TS. PROTHROMBIN [id number] 05:59:00 Test Item Value Reference Range Interpretation Comments PROTIME (BEAKER) (test code = 17.0 seconds 11.7-14.7 H 759) INR (BEAKER) (test code = 370) 1.4 <=5.9 RECOMMENDED COUMADIN/WARFARIN INR THERAPY RANGESSTANDARD DOSE: 2.0 - 3.0 Includes: PROPHYLAXIS forvenous thrombosis, systemic embolization; TREATMENT for venous thrombosis and/or pulmonary embolus.HIGH RISK: Target INR is 2.5-3.5 for patients with mechanical heart valves.While on warfarin.[id number] 05:56:00 Test Item Value Reference Range Interpretation Comments PHOSPHORUS (BEAKER) (test code = 5.3 mg/dL 2.3-4.7 H 604) [id number] 05:56:00 Test Item Value Reference Range Interpretation Comments MAGNESIUM (BEAKER) (test code = 1.9 mg/dL 1.6-2.6 627) CBC W/PLT COUNT & AUTO [id number] 05:38:00 Test Item Value Reference Range Interpretation [...] 0-1 PERCENT (BEAKER) (test code = 2801) [id number] 01:07:00 Test Item Value Reference Range Interpretation Comments PARTIAL THROMBOPLASTIN TIME 63.5 seconds 22.5-36.0 H (BEAKER) (test code = 760) [id number] 18:24:00 Test Item Value Reference Range Interpretation Comments PARTIAL THROMBOPLASTIN TIME 56.6 seconds 22.5-36.0 H (BEAKER) (test code = 760) POCT-GLUCOSE [id number] 18:14:00 Test Item Value Reference Range Interpretation Comments POC-GLUCOSE METER 101 mg/dL 70-110 TESTED AT [facility] 6720 (BEAKER) (test code = [place] 1538) [address] [id number] 13:57:00 Test Item Value Reference Range Interpretation Comments PARTIAL THROMBOPLASTIN TIME 122.3 seconds 22.5-36.0 H (BEAKER) (test code = 760) POCT-GLUCOSE [id number] 13:08:00 Test Item Value Reference Range Interpretation Comments POC-GLUCOSE METER 105 mg/dL 70-110 TESTED AT [facility] 6720 (BEAKER) (test code = [place] 1538) [address] BASIC METABOLIC [id number] 04:31:00 Test Item Value Reference Range Interpretation [...] S NOT APPLICABLE FOR DIALYSIS PATIEN TS. [id number] 04:28:00 Test Item Value Reference Range Interpretation Comments PHOSPHORUS (BEAKER) (test code = 3.9 mg/dL 2.3-4.7 604) [id number] 04:28:00 Test Item Value Reference Range Interpretation Comments MAGNESIUM (BEAKER) (test code = 1.7 mg/dL 1.6-2.6 627) HEPATIC FUNCTION [id number] 04:28:00 Test Item Value Reference Range Interpretation [...] (test code = 33 U/L 6-55 347) [id number] 04:20:00 Test Item Value Reference Range Interpretation Comments PARTIAL THROMBOPLASTIN TIME 106.2 seconds 22.5-36.0 H (BEAKER) (test code = 760) While on warfarin.PROTHROMBIN [id number] 04:15:00 Test Item Value Reference Range Interpretation [...] valves.While on warfarin.CBC W/PLT COUNT & AUTO [id number] 04:05:00 Test Item Value Reference Range Interpretation [...] PERCENT (BEAKER) (test code = 2801) POCT-GLUCOSE [id number] 00:29:00 Test Item Value Reference Range Interpretation Comments POC-GLUCOSE METER 119 mg/dL 70-110 H TESTED AT [place] [address] ([facility]) (test code = [place] 1538) [address] [id number] 00:24:00 Test Item Value Reference Range Interpretation Comments PARTIAL THROMBOPLASTIN TIME 72.4 seconds 22.5-36.0 H (BEAKER) (test code = 760) POCT-GLUCOSE [id number] 18:33:00 Test Item Value Reference Range Interpretation Comments POC-GLUCOSE METER 158 mg/dL 70-110 H TESTED AT [facility] 6720 ([facility]) (test code = [place] 1538) [address] [id number] 18:22:00 Test Item Value Reference Range Interpretation Comments PARTIAL THROMBOPLASTIN TIME 78.6 seconds 22.5-36.0 H (BEAKER) (test code = 760) POCT-GLUCOSE [id number] 12:20:00 Test Item Value Reference Range Interpretation Comments POC-GLUCOSE METER 110 mg/dL 70-110 TESTED AT [facility] 6720 (BEAKER) (test code = [place] 1538) [address] [id number] 12:04:00 Test Item Value Reference Range Interpretation Comments PARTIAL THROMBOPLASTIN TIME 98.0 seconds 22.5-36.0 H (BEAKER) (test code = 760) [id number] 04:11:00 Test Item Value Reference Range Interpretation [...] heart valves.While on warfarin.While on warfarin. PROTHROMBIN TIME/[id number] 04:10:00 Test Item Value Reference Range Interpretation Comments PROTIME (BEAKER) (test code = 15.2 seconds 11.7-14.7 H 759) INR (BEAKER) (test code = 370) 1.2 <=5.9 RECOMMENDED COUMADIN/WARFARIN INR THERAPY RANGESSTANDARD DOSE: 2.0 - 3.0 Includes: PROPHYLAXIS forvenous thrombosis, systemic embolization; TREATMENT for venous thrombosis and/or pulmonary embolus.HIGH RISK: Target INR is 2.5-3.5 for patients with mechanical heart valves.BASIC METABOLIC [id number] 03:53:00 Test Item Value Reference Range Interpretation [...] PATIEN TS. CBC W/PLT COUNT & AUTO [id number] 03:50:00 Test Item Value Reference Range Interpretation [...] H PERCENT (BEAKER) (test code = 2801) [id number] 03:45:00 Test Item Value Reference Range Interpretation Comments PHOSPHORUS (BEAKER) (test code = 4.7 mg/dL 2.3-4.7 604) [id number] 03:45:00 Test Item Value Reference Range Interpretation Comments MAGNESIUM (BEAKER) (test code = 2.0 mg/dL 1.6-2.6 627) HEPATIC FUNCTION [id number] 03:45:00 Test Item Value Reference Range Interpretation [...] (test code = 36 U/L 6-55 347) [id number] 22:16:00 Test Item Value Reference Range Interpretation Comments PARTIAL THROMBOPLASTIN TIME 60.7 seconds 22.5-36.0 H (BEAKER) (test code = 760) POCT-GLUCOSE [id number] 18:32:00 Test Item Value Reference Range Interpretation Comments POC-GLUCOSE METER 125 mg/dL 70-110 H TESTED AT [facility] 6720 (BEAKER) (test code = [place] 1538) [address] CBC (HEMOGRAM ONLY)2018-01-26 17:21:00 Test Item Value [...] (BEAKER) (test code = 413) BASIC METABOLIC [id number] 07:16:00 Test Item Value Reference Range Interpretation [...] S NOT APPLICABLE FOR DIALYSIS PATIEN TS. [id number] 07:13:00 Test Item Value Reference Range Interpretation Comments PHOSPHORUS (BEAKER) (test code = 4.3 mg/dL 2.3-4.7 604) [id number] 07:13:00 Test Item Value Reference Range Interpretation Comments MAGNESIUM (BEAKER) (test code = 2.0 mg/dL 1.6-2.6 627) HEPATIC FUNCTION [id number] 07:13:00 Test Item Value Reference Range Interpretation [...] (test code = 37 U/L 6-55 347) [id number] 07:12:00 Test Item Value Reference Range Interpretation [...] PERCENT (BEAKER) (test code = 2801) BLOOD [id number] 00:00:00 Test Item Value Reference Range Interpretation Comments CULTURE (BEAKER) (test No growth in 5 days code = 1095) BLOOD [id number] 00:00:00 Test Item Value Reference Range Interpretation Comments CULTURE (BEAKER) (test No growth in 5 days code = 1095) POCT-GLUCOSE [id number] 23:37:00 Test Item Value Reference Range Interpretation Comments POC-GLUCOSE METER 87 mg/dL 70-110 TESTED AT [place] [address] ([facility] (test code = [place] [facility] [address] 1538) [id number] 23:06:00 Test Item Value Reference Range Interpretation Comments PARTIAL THROMBOPLASTIN TIME 81.8 seconds 22.5-36.0 H (BEAKER) (test code = 760) POCT-GLUCOSE [id number] 20:42:00 Test Item Value Reference Range Interpretation Comments POC-GLUCOSE METER 193 mg/dL 70-110 H TESTED AT [place] [address] ([facility] (test code = [place] [facility] 1538) [address] HEMOGLOBIN AND [id number] 17:40:00 Test Item Value Reference Range Interpretation Comments HEMOGLOBIN (BEAKER) (test code = 8.4 GM/DL 13.7-17.5 L 410) HEMATOCRIT (BEAKER) (test code = 25.4 % 40.1-51.0 L 411) [id number] 13:06:00 Test Item Value Reference Range Interpretation Comments PARTIAL THROMBOPLASTIN TIME 61.4 seconds 22.5-36.0 H (BEAKER) (test code = 760) POCT-GLUCOSE [id number] 12:56:00 Test Item Value Reference Range Interpretation Comments POC-GLUCOSE METER 116 mg/dL 70-110 H TESTED AT [facility] 6720 (BEAKER) (test code = [place] 1538) [address] [id number] 06:43:00 Test Item Value Reference Range Interpretation [...] 37 % 20-55 (test code = 2590) [id number] 05:32:00 Test Item Value Reference Range Interpretation Comments PARTIAL THROMBOPLASTIN TIME 63.7 seconds 22.5-36.0 H (BEAKER) (test code = 760) BASIC METABOLIC [id number] 05:03:00 Test Item Value Reference Range Interpretation [...] APPLICABLE FOR DIALYSIS PATIEN TS. HEPATIC FUNCTION [id number] 05:00:00 Test Item Value Reference Range Interpretation [...] (test code = 41 U/L 6-55 347) [id number] 04:40:00 Test Item Value Reference Range Interpretation [...] 0-0 (BEAKER) (test code = 413) POCT-GLUCOSE [id number] 00:30:00 Test Item Value Reference Range Interpretation Comments POC-GLUCOSE METER 112 mg/dL 70-110 H TESTED AT [facility] 6720 (BEAKER) (test code = [place] 1538) [address] CBC W/PLT COUNT & AUTO [id number] 19:16:00 Test Item Value Reference Range Interpretation [...] PERCENT (BEAKER) (test code = 2801) POCT-GLUCOSE [id number] 18:27:00 Test Item Value Reference Range Interpretation Comments POC-GLUCOSE METER 102 mg/dL 70-110 TESTED AT [place] [address] ([facility]) (test code = [place] [facility] 1538) [address] POCT-GLUCOSE [id number] 13:01:00 Test Item Value Reference Range Interpretation Comments POC-GLUCOSE METER 119 mg/dL 70-110 H TESTED AT [place] [address] ([facility]) (test code = [place] [facility] 1538) [address] RAD, CHEST, 1 VIEW, NON [id number] 10:59:00Reason for exam:->ptxShould this be performed at [...] in pulmonary opacities. Signed: Sarah Beth Mejia [facility] Verified Date/Time: 01/24/2018 10:59:29 Reading Location: [facility] Diagnostic Imaging Reading Room - [facility] F1 1120 BRONCHIAL CULTURE + GRAM STAIN 2018-01-24 08:53:00 Test Item Value Reference Range Interpretation Comments CULTURE (BEAKER) 2+ Normal respiratory (test code = 1095) pete present GRAM STAIN RESULT 4+ White blood cells (BEAKER) (test code = seen 1123) GRAM STAIN RESULT No organisms seen (BEAKER) (test code = 59629) POCT-GLUCOSE [id number] 06:28:00 Test Item Value Reference Range Interpretation Comments POC-GLUCOSE METER 119 mg/dL 70-110 H TESTED AT [facility] 6720 (BEAKER) (test code = F[place] VU [place] 1538) [address] BASIC METABOLIC [id number] 04:41:00 Test Item Value Reference Range Interpretation [...] WBC 0-0 (BEAKER) (test code = 413) [id number] 04:21:00 Test Item Value Reference Range Interpretation Comments MAGNESIUM (BEAKER) (test code = 2.0 mg/dL 1.6-2.6 627) HEPATIC FUNCTION [id number] 04:21:00 Test Item Value Reference Range Interpretation [...] = 36 U/L 6-55 347) Specimen slightly [id number] 04:13:00 Test Item Value Reference Range Interpretation Comments PARTIAL THROMBOPLASTIN TIME 72.1 seconds 22.5-36.0 H (BEAKER) (test code = 760) BLOOD GAS, [id number] 04:13:00 Test Item Value Reference Range Interpretation [...] (test code = 1819) 100.0 % POCT-GLUCOSE [id number] 00:08:00 Test Item Value Reference Range Interpretation Comments POC-GLUCOSE METER 150 mg/dL 70-110 H TESTED AT [place] [address] ([facility]) (test code = FOSTER Paul [place] 1538) [address] POCT-GLUCOSE [id number] 18:45:00 Test Item Value Reference Range Interpretation Comments POC-GLUCOSE METER 162 mg/dL 70-110 H TESTED AT [place] [address] ([facility]) (test code = [place]OSTER Paul [place] 1538) [address] POCT-GLUCOSE [id number] 13:14:00 Test Item Value Reference Range Interpretation Comments POC-GLUCOSE METER 176 mg/dL 70-110 H TESTED AT [place] [address] ([facility] (test code = [place]OSTER Paul [place] 1538) [address] POCT-GLUCOSE [id number] 10:44:00 Test Item Value Reference Range Interpretation Comments POC-GLUCOSE METER 146 mg/dL 70-110 H TESTED AT [place] [address] ([facility] (test code = [place]OSTER Paul [place] 1538) [address] BLOOD GAS, [id number] 10:32:00 Test Item Value Reference Range Interpretation [...] 40.0 % RAD, CHEST, 1 VIEW, NON [id number] 09:14:00Reason for exam:->ptxShould this be performed at [...] MDReport Verified Date/Time: 01/23/2018 09:14:48 Reading Location: [facility] Radiology Reading Room Electronically sign ed by: KYLE ROME M.D. on 01/23/2018 09:14 AMBLOOD [id number] 08:09:00 Test Item Value Reference Range Interpretation [...] required. This sample was tested at the [facility] Clinical Microbiology Laboratory using the [employer] Blood Culture ID Panel. This test is FDA cleared for in vitro diagnostic use and has been verified and approved by the [facility] Clinical Microbiology laboratory for clinical use. Reference Range: Not DetectedBLOOD GAS, [id number] 04:45:00 Test Item Value Reference Range Interpretation [...] code = 1819) 40.0 % BASIC METABOLIC [id number] 04:39:00 Test Item Value Reference Range Interpretation [...] APPLICABLE FOR DIALYSIS PATIEN TS. Specimen slightly [id number] 04:35:00 Test Item Value Reference Range Interpretation Comments MAGNESIUM (BEAKER) (test code = 1.8 mg/dL 1.6-2.6 627) HEPATIC FUNCTION [id number] 04:35:00 Test Item Value Reference Range Interpretation [...] = 40 U/L 6-55 347) Specimen slightly [id number] 04:18:00 Test Item Value Reference Range Interpretation [...] WBC 0-0 (test code = 413) POCT-GLUCOSE [id number] 00:52:00 Test Item Value Reference Range Interpretation Comments POC-GLUCOSE METER 145 mg/dL 70-110 H TESTED AT [facility] 6720 (BEAKER) (test code = [place]OSTER Paul [place] 1538) [address] BLOOD [id number] 00:00:00 Test Item Value Reference Range Interpretation Comments CULTURE (BEAKER) (test No growth in 5 days code = 1095) POCT-GLUCOSE [id number] 18:17:00 Test Item Value Reference Range Interpretation Comments POC-GLUCOSE METER 97 mg/dL 70-110 TESTED AT [place] [address] ([facility]) (test code = [facility] [address] 1538) POCT-GLUCOSE [id number] 13:26:00 Test Item Value Reference Range Interpretation Comments POC-GLUCOSE METER 138 mg/dL 70-110 H TESTED AT [place] [address] ([facility]) (test code = [facility] 1538) [address] BLOOD GAS, [id number] 10:32:00 Test Item Value Reference Range Interpretation [...] (test code = 1819) 40.0 % POCT-GLUCOSE [id number] 06:21:00 Test Item Value Reference Range Interpretation Comments POC-GLUCOSE METER 138 mg/dL 70-110 H TESTED AT [facility] 6720 (BEAKER) (test code = [facility] 1538) [address] BASIC METABOLIC [id number] 04:25:00 Test Item Value Reference Range Interpretation [...] APPLICABLE FOR DIALYSIS PATIEN TS. Specimen slightly [id number] 04:24:00 Test Item Value Reference Range Interpretation Comments MAGNESIUM (BEAKER) (test code = 2.1 mg/dL 1.6-2.6 627) HEPATIC FUNCTION [id number] 04:24:00 Test Item Value Reference Range Interpretation [...] /100 WBC 0-0 (test code = 413) [id number] 04:07:00 Test Item Value Reference Range Interpretation Comments PARTIAL THROMBOPLASTIN TIME 80.2 seconds 22.5-36.0 H (BEAKER) (test code = 760) BLOOD GAS, [id number] 04:06:00 Test Item Value Reference Range Interpretation [...] 40.0 % RAD, CHEST, 1 VIEW, NON [id number] 03:32:00Reason for exam:->ptxShould this be performed at [...] MDReport Verified Date/Time: 01/22/2018 03:32:38 Reading Location: [facility] C013Y CT Body Reading Room POCT-GLUCOSE [id number] 00:43:00 Test Item Value Reference Range Interpretation Comments POC-GLUCOSE METER 102 mg/dL 70-110 TESTED AT [place] [address] ([facility]) (test code = [facility] 1538) [address] [id number] 17:31:00 Test Item Value Reference Range Interpretation Comments PARTIAL THROMBOPLASTIN TIME 65.0 seconds 22.5-36.0 H ([facility]) (test code = 760) POCT-GLUCOSE [id number] 17:24:00 Test Item Value Reference Range Interpretation Comments POC-GLUCOSE METER 171 mg/dL 70-110 H TESTED AT [place] [address] ([facility]) (test code = [employer] [facility] 1538) [address] POCT-GLUCOSE [id number] 13:01:00 Test Item Value Reference Range Interpretation Comments POC-GLUCOSE METER 144 mg/dL 70-110 H TESTED AT [place] [address] ([facility]) (test code = [facility] [employer] [facility] 1538) [address] [id number] 11:12:00 Test Item Value Reference Range Interpretation Comments PARTIAL THROMBOPLASTIN TIME 67.9 seconds 22.5-36.0 H ([facility]) (test code = 760) RAD, CHEST, 1 VIEW, NON [id number] 08:01:00Reason for exam:->ptxShould this be performed at [...] MDReport Verified Date/Time: 01/21/2018 08:01:07 Reading Location: [facility] Radiology Reading Room POCT-GLUCOSE [id number] 06:50:00 Test Item Value Reference Range Interpretation Comments POC-GLUCOSE METER 149 mg/dL 70-110 H TESTED AT [facility] 6720 (BEAKER) (test code = [facility] 1538) [address] CBC (HEMOGRAM ONLY)2018-01-21 04:20:00 Test Item Value [...] /100 WBC 0-0 (test code = 413) [id number] 04:03:00 Test Item Value Reference Range Interpretation Comments PARTIAL THROMBOPLASTIN TIME 51.2 seconds 22.5-36.0 H (BEAKER) (test code = 760) BASIC METABOLIC [id number] 04:01:00 Test Item Value Reference Range Interpretation [...] APPLICABLE FOR DIALYSIS PATIEN TS. Specimen moderately [id number] 03:59:00 Test Item Value Reference Range Interpretation Comments MAGNESIUM (BEAKER) (test code = 2.0 mg/dL 1.6-2.6 627) HEPATIC FUNCTION [id number] 03:59:00 Test Item Value Reference Range Interpretation [...] U/L 6-55 347) Specimen moderately ictericVANCOMYCIN LEVEL, [id number] 03:57:00 Test Item Value Reference Range Interpretation Comments VANCOMYCIN RANDOM (BEAKER) (test 18.3 ug/mL code = 523) Reference Range: No NormalsOXYGEN SATURATION, [id number] 03:32:00 Test Item Value Reference Range Interpretation Comments O2 SATURATION (MEASURED) (BEAKER) 86.3 % (test code = 1455) BLOOD GAS, [id number] 03:30:00 Test Item Value Reference Range Interpretation [...] (test code = 1819) 40.0 % POCT-GLUCOSE [id number] 23:43:00 Test Item Value Reference Range Interpretation Comments POC-GLUCOSE METER 143 mg/dL 70-110 H TESTED AT [facility] 6720 (BEAKER) (test code = [place] GOS[place] 1538) [address] BLOOD [id number] 18:00:00 Test Item Value Reference Range Interpretation Comments CULTURE (BEAKER) (test No growth in 5 days code = 1095) BLOOD [id number] 18:00:00 Test Item Value Reference Range Interpretation Comments CULTURE ([facility]) (test No growth in 5 days code = 1095) POCT-GLUCOSE [id number] 16:32:00 Test Item Value Reference Range Interpretation Comments POC-GLUCOSE METER 185 mg/dL 70-110 H TESTED AT [facility] 6720 ([facility]) (test code = [place] 1538) [address] MISCELLANEOUS LAB [id number] 15:04:00 Test Item Value Reference Range Interpretation Comments SCAN RESULT (test code = 7410270) Result comments: NOT DETECTED Panel is negative for Bio[employer] BCID-detectable organisms. Please refer to traditional culture and sensitivity results as they become available. Other organisms and resistance markers not contained in this PCR panel cannot be excluded and follow-up of traditional culture results is required. This sample was tested at the [facility] Clinical Microbiology Laboratory using the [employer] Film[employer] Blood Culture ID Panel. This test is FDA cleared for in vitro diagnostic use and hasbeen verified and approved by the [facility] Clinical Microbiology laboratory for clinical use. ReferenceRange: Not Detected POCT-GLUCOSE [id number] 12:25:00 Test Item Value Reference Range Interpretation Comments POC-GLUCOSE METER 116 mg/dL 70-110 H TESTED AT [facility] 67 ([facility]) (test code = FOSTER Paul [facility] 1538) [address] RAD, CHEST, 1 VIEW, NON [id number] 06:38:00Reason for exam:->pl effusionShould this be performed [...] MDReport Verified Date/Time: 01/20/2018 06:38:33 Reading Location: [address] Body Reading Room POCT-GLUCOSE [id number] 05:54:00 Test Item Value Reference Range Interpretation Comments POC-GLUCOSE METER 231 mg/dL 70-110 H TESTED AT [facility] 6720 (BEAKER) (test code = [place] 1538) [address] VANCOMYCIN LEVEL, [id number] 04:23:00 Test Item Value Reference Range Interpretation Comments VANCOMYCIN RANDOM (BEAKER) (test 25.8 ug/mL code = 523) Reference Range: No [id number] 04:17:00 Test Item Value Reference Range Interpretation Comments MAGNESIUM (BEAKER) (test code = 2.0 mg/dL 1.6-2.6 627) HEPATIC FUNCTION [id number] 04:17:00 Test Item Value Reference Range Interpretation [...] 6-55 H 347) Specimen moderately ictericBASIC METABOLIC [id number] 04:17:00 Test Item Value Reference Range Interpretation [...] APPLICABLE FOR DIALYSIS PATIEN TS. Specimen moderately [id number] 04:05:00 Test Item Value Reference Range Interpretation Comments PARTIAL THROMBOPLASTIN TIME 69.7 seconds 22.5-36.0 H (BEAKER) (test code = 760) CBC W/PLT COUNT & AUTO [id number] 03:49:00 Test Item Value Reference Range Interpretation [...] (BEAKER) (test code = 2801) OXYGEN SATURATION, [id number] 03:48:00 Test Item Value Reference Range Interpretation Comments O2 SATURATION (MEASURED) (BEAKER) 84.1 % (test code = 1455) POCT-GLUCOSE [id number] 23:14:00 Test Item Value Reference Range Interpretation Comments POC-GLUCOSE METER 248 mg/dL 70-110 H TESTED AT [facility] 6720 (BEAKER) (test code = [facility] 1538) [address] POCT-GLUCOSE [id number] 18:56:00 Test Item Value Reference Range Interpretation Comments POC-GLUCOSE METER 213 mg/dL 70-110 H TESTED AT [facility] 6720 (BEAKER) (test code = [facility] 1538) [address] POCT-GLUCOSE [id number] 14:06:00 Test Item Value Reference Range Interpretation Comments POC-GLUCOSE METER 210 mg/dL 70-110 H TESTED AT [facility] 6720 (BEAKER) (test code = [facility] 1538) [address] SPUTUM CULTURE + GRAM [id number] 13:45:00 Test Item Value Reference Range Interpretation Comments CULTURE (BEAKER) 4+ Normal respiratory (test code = 1095) pete present GRAM STAIN RESULT 4+ WBCs (BEAKER) (test code = 1123) GRAM STAIN RESULT 0-5 epithelial cells (BEAKER) (test code = 91603) GRAM STAIN RESULT 3+ gram negative rods (BEAKER) (test code = 03275) GRAM STAIN RESULT 2+ gram positive cocci (BEAKER) (test code = in pairs and clusters 963326) [id number] 12:37:00 Test Item Value Reference Range Interpretation Comments PARTIAL THROMBOPLASTIN TIME 74.3 seconds 22.5-36.0 H (BEAKER) (test code = 760) CBC W/PLT COUNT & AUTO [id number] 10:52:00 Test Item Value Reference Range Interpretation [...] H (test code = 413) VANCOMYCIN LEVEL, [id number] 05:41:00 Test Item Value Reference Range Interpretation Comments VANCOMYCIN RANDOM (BEAKER) (test 27.9 ug/mL code = 523) Reference Range: No NormalsBASIC METABOLIC [id number] 05:39:00 Test Item Value Reference Range Interpretation [...] APPLICABLE FOR DIALYSIS PATIEN TS. Specimen moderately [id number] 05:36:00 Test Item Value Reference Range Interpretation Comments MAGNESIUM (BEAKER) (test code = 2.0 mg/dL 1.6-2.6 627) [id number] 05:36:00 Test Item Value Reference Range Interpretation Comments PHOSPHORUS (BEAKER) (test code = 3.9 mg/dL 2.3-4.7 604) HEPATIC FUNCTION [id number] 05:36:00 Test Item Value Reference Range Interpretation [...] 6-55 H 347) Specimen moderately ictericOXYGEN SATURATION, [id number] 05:33:00 Test Item Value Reference Range Interpretation [...] WBC 0-0 H (test code = 413) [id number] 05:24:00 Test Item Value Reference Range Interpretation Comments PARTIAL THROMBOPLASTIN TIME 68.1 seconds 22.5-36.0 H (BEAKER) (test code = 760) RAD, CHEST, 1 VIEW, NON [id number] 04:41:00Reason for exam:->pl effusionShould this be performed at the bedside?->YesFINAL REPORT CLINICAL INDICATION: Support lines. Comparison: 01/18/2018 The ca rdiomediastinal contours are stable. Central pulmonary vascular congestion and bilateral parenchymalopacities are unchanged. There is no pneumothorax. Support lines are stable. Signed: Kellen Parraeport Verified Date/Time: 01/19/2018 04:41:27 Reading Location: [facility] [address] [place] Reading Room APTT 2018-01-19 00:38:00 Test Item Value Reference Range Interpretation Comments PARTIAL THROMBOPLASTIN TIME 45.5 seconds 22.5-36.0 H ([facility]) (test code = 760) POCT-GLUCOSE [id number] 00:21:00 Test Item Value Reference Range Interpretation Comments POC-GLUCOSE METER 189 mg/dL 70-110 H TESTED AT [place] [address] ([facility]) (test code = FOSTER Paul [facility] 1538) [address] POCT-GLUCOSE [id number] 23:34:00 Test Item Value Reference Range Interpretation Comments POC-GLUCOSE METER 162 mg/dL 70-110 H TESTED AT [place] [address] ([facility]) (test code = FOSTER Paul [facility] 1538) [address] POCT-GLUCOSE [id number] 18:09:00 Test Item Value Reference Range Interpretation Comments POC-GLUCOSE METER 172 mg/dL 70-110 H TESTED AT [place] [address] ([facility]) (test code = FOSTER Paul [facility] 1538) [address] RAD, ABDOMEN/KUB, 1 VIEW [id number] 17:36:00Reason for exam:->ileusShould this be performed at the bedside?->YesFINAL REPORT Comparison: 01/17/2018 TECHNIQUE: Frontal image of the abdomen FINDINGS: There is a nonspecific bowel gas pattern. Tip of nasogastric projects in the distal stomach. No gross free intraperitoneal air. No acute skeletal abnormality. Signed: Kyle Rome MDReport Verified Date/Time: 01/18/2018 17:36:02 Reading Location: [address] Reading Room [id number] 17:10:00 Test Item Value Reference Range Interpretation Comments PARTIAL THROMBOPLASTIN TIME 27.8 seconds 22.5-36.0 (BEAKER) (test code = 760) Prior to initiating heparinPOCT-GLUCOSE [id number] 15:22:00 Test Item Value Reference Range Interpretation Comments POC-GLUCOSE METER 126 mg/dL 70-110 H TESTED AT [facility] 6720 ([facility]) (test code = [place] Paul [place] 1538) [address] [id number] 13:02:00 Test Item Value Reference Range Interpretation Comments PHOSPHORUS (BEAKER) (test code = 3.8 mg/dL 2.3-4.7 604) BASIC METABOLIC [id number] 13:02:00 Test Item Value Reference Range Interpretation [...] FOR DIALYSIS PATIEN TS. Specimen moderately ictericPOCT-GLUCOSE [id number] 12:11:00 Test Item Value Reference Range Interpretation Comments POC-GLUCOSE METER 113 mg/dL 70-110 H TESTED AT [facility] 6720 (BEAKER) [facility] 1538) [address] CBC W/PLT COUNT & AUTO [id number] 12:03:00 Test Item Value Reference Range Interpretation [...] = 413) RAD, CHEST, 1 VIEW, NON [id number] 09:44:00Reason for exam:->pl effusionShould this be performed [...] MDReport Verified Date/Time: 01/18/2018 09:44:26 Reading Location: [address] Transitional Reading Room SPUTUM CULTURE + GRAM [id number] 08:09:00 Test Item Value Reference Range Interpretation Comments CULTURE (BEAKER) 3+ Normal respiratory (test code = 1095) pete present GRAM STAIN RESULT 4+ WBCs (BEAKER) (test code = 1123) GRAM STAIN RESULT 0-5 epithelial cells (BEAKER) (test code = 33238) GRAM STAIN RESULT No organisms seen (BEAKER) (test code = 84784) POCT-GLUCOSE [id number] 07:52:00 Test Item Value Reference Range Interpretation Comments POC-GLUCOSE METER 146 mg/dL 70-110 H TESTED AT [facility] 6720 (BEAKER) (test code = [place] 1538) [address] POCT-GLUCOSE [id number] 06:30:00 Test Item Value Reference Range Interpretation Comments POC-GLUCOSE METER 135 mg/dL 70-110 H TESTED AT [facility] 6720 (BEAKER) (test code = [place]OSTER Paul [place] 1538) [address] POCT-GLUCOSE [id number] 06:30:00 Test Item Value Reference Range Interpretation Comments POC-GLUCOSE METER 130 mg/dL 70-110 H TESTED AT [facility] 6720 (BEAKER) (test code = FOSTER Paul [facility] 1538) [address] [id number] 03:56:00 Test Item Value Reference Range Interpretation Comments PHOSPHORUS (BEAKER) (test code = 3.1 mg/dL 2.3-4.7 604) [id number] 03:56:00 Test Item Value Reference Range Interpretation Comments MAGNESIUM (BEAKER) (test code = 2.0 mg/dL 1.6-2.6 627) HEPATIC FUNCTION [id number] 03:56:00 Test Item Value Reference Range Interpretation [...] 6-55 H 347) Specimen moderately ictericVANCOMYCIN LEVEL, [id number] 03:53:00 Test Item Value Reference Range Interpretation Comments VANCOMYCIN RANDOM (BEAKER) (test 18.0 ug/mL code = 523) Reference Range: No [id number] 03:48:00 Test Item Value Reference Range Interpretation Comments CALCIUM ([facility]) (test code = 697) 8.1 mg/dL 8.4-10.2 L CALCIUM, [id number] 03:34:00 Test Item Value Reference Range Interpretation Comments CALCIUM IONIZED ([facility]) (test 1.06 mmol/L 1.12-1.27 L code = 698) PH, BLOOD ([facility]) (test code = 7.38 1810) OXYGEN SATURATION, [id number] 03:33:00 Test Item Value Reference Range Interpretation Comments O2 SATURATION (MEASURED) ([facility]) 85.8 % (test code = 1455) POCT-GLUCOSE [id number] 03:26:00 Test Item Value Reference Range Interpretation Comments POC-GLUCOSE METER 144 mg/dL 70-110 H TESTED AT [place] [address] ([facility]) (test code = [facility] Humberto [facility] 1538) [address] POCT-GLUCOSE [id number] 03:26:00 Test Item Value Reference Range Interpretation Comments POC-GLUCOSE METER 163 mg/dL 70-110 H TESTED AT [place] [address] ([facility]) (test code = [facility] Humberto [facility] 1538) [address] POCT-GLUCOSE [id number] 01:04:00 Test Item Value Reference Range Interpretation Comments POC-GLUCOSE METER 159 mg/dL 70-110 H TESTED AT [place] [address] ([facility]) ([facility] = [facility] 1538) [address] POCT-GLUCOSE [id number] 00:12:00 Test Item Value Reference Range Interpretation Comments POC-GLUCOSE METER 132 mg/dL 70-110 H TESTED AT [place] [address] ([facility]) (test code = [facility] 1538) [address] LACTIC ACID, ARTERIAL, WHOLE [id number] 23:54:00 Test Item Value Reference Range Interpretation Comments LACTATE BLOOD ARTERIAL (2) 0.7 mmol/L 0.5-2.2 ([facility]) (test code = 2874) Effective 01/04/2016: Units/Reference Range ChangeNew: 0.5-2.2 mmol/L Previous: 5-20 mg/dLSpecimen moderately ictericPOTASSIUM-STAT [id number] 23:30:00 Test Item Value Reference Range Interpretation Comments POTASSIUM (BEAKER) (test code = 4.0 meq/L 3.6-5.5 379) BLOOD GAS, [id number] 23:30:00 Test Item Value Reference Range Interpretation [...] code = 1819) 50.0 % SODIUM NA-STAT [id number] 23:30:00 Test Item Value Reference Range Interpretation Comments SODIUM (BEAKER) (test code = 381) 134 meq/L 135-148 L GLUCOSE-STAT [id number] 23:30:00 Test Item Value Reference Range Interpretation Comments GLUCOSE RANDOM (BEAKER) (test code 138 mg/dL 70-110 H = 652) HGB/HCT (H&H) - STAT [id number] 23:30:00 Test Item Value Reference Range Interpretation Comments HEMOGLOBIN (BEAKER) (test code = 9.0 g/dL 13.0-16.8 L 410) HEMATOCRIT (BEAKER) (test code = 26.0 % 40.0-50.0 L 411) CALCIUM, [id number] 23:30:00 Test Item Value Reference Range Interpretation Comments CALCIUM IONIZED (BEAKER) (test 1.04 mmol/L 1.12-1.27 L code = 698) PH, BLOOD (BEAKER) (test code = 7.48 1810) OXYGEN SATURATION, [id number] 23:28:00 Test Item Value Reference Range Interpretation Comments O2 SATURATION (MEASURED) (BEAKER) 82.0 % (test code = 1455) POCT-GLUCOSE [id number] 21:35:00 Test Item Value Reference Range Interpretation Comments POC-GLUCOSE METER 99 mg/dL 70-110 TESTED AT [facility] 6720 ([facility] (test code = [place] [address] 1538) POCT-GLUCOSE [id number] 21:35:00 Test Item Value Reference Range Interpretation Comments POC-GLUCOSE METER 111 mg/dL 70-110 H TESTED AT [facility] 6720 ([facility]) (test code = [place] 1538) [address] RAD, CHEST, 1 VIEW, NON [id number] 17:08:00Reason for exam:->LIJ placment CVCShould this be [...] [place] Verified Date/Time: 01/17/2018 17:08:24 Reading Location: [facility] Radiology Reading Room GLUCOSE-STAT [id number] 16:33:00 Test Item Value Reference Range Interpretation Comments GLUCOSE RANDOM (BEAKER) (test code 147 mg/dL 70-110 H = 652) POTASSIUM-STAT [id number] 16:32:00 Test Item Value Reference Range Interpretation Comments POTASSIUM (BEAKER) (test code = 4.7 meq/L 3.6-5.5 379) [id number] 15:03:00 Test Item Value Reference Range Interpretation Comments PROCALCITONIN (BEAKER) (test code 5.33 ng/mL <0.05 H = 3036) SEPSIS RISK (ng/mL)Low: 0.05-0.50Intermediate: 0.51-2.00High: >=2.01CT BRAIN WITHOUT IV CONTRAST - [id number] 13:50:00Reason for exam:->altered mental statusFINAL REPORT CT [...] Granda Verified Date/Time: 01/17/2018 13:50:42 Reading Location: [facility] Radiology Reading Room CALCIUM, [id number] 12:36:00 Test Item Value Reference Range Interpretation Comments CALCIUM IONIZED (BEAKER) (test 1.09 mmol/L 1.12-1.27 L code = 698) PH, BLOOD (BEAKER) (test code = 7.36 1810) GLUCOSE-STAT [id number] 12:36:00 Test Item Value Reference Range Interpretation Comments GLUCOSE RANDOM (BEAKER) (test code 147 mg/dL 70-110 H = 652) POTASSIUM-STAT [id number] 12:36:00 Test Item Value Reference Range Interpretation Comments POTASSIUM (BEAKER) (test code = 4.7 meq/L 3.6-5.5 379) RAD, ABDOMEN/KUB, 1 VIEW [id number] 08:42:00Reason for exam:->ileusShould this be performed at [...] MDReport Verified Date/Time: 01/17/2018 08:42:09 Reading Location: [facility] Radiology Reading Room CBC W/PLT COUNT & AUTO [id number] 08:18:00 Test Item Value Reference Range Interpretation [...] (test code = 413) HEPARIN ASSAY - [id number] 08:07:00 Test Item Value Reference Range Interpretation Comments UNFRACTIONATED HEPARIN-ANTI 10A < u/ml 0.30-0.70 L (JARROD) (test code = 1606) Recommendations for Monitoring Unfractionated Heparin Therapeutic Range: 0.3- 0.7 u/mL with continuous IV infusionPOCT-GLUCOSE [id number] 06:09:00 Test Item Value Reference Range Interpretation Comments POC-GLUCOSE METER 143 mg/dL 70-110 H TESTED AT [facility] 6720 (JARROD) (test code = [place] 1538) [address] RAD, CHEST, 1 VIEW, NON [id number] 04:43:00Reason for exam:->acute respiratory insufficiencyShould this be [...] MDReport Verified Date/Time: 01/17/2018 04:43:34 Reading Location: [place] [id number] Body Reading Room OXYGEN SATURATION, [id number] 04:13:00 Test Item Value Reference Range Interpretation Comments O2 SATURATION (MEASURED) (BEAKER) 85.7 % (test code = 1455) [id number] 04:06:00 Test Item Value Reference Range Interpretation Comments PHOSPHORUS (BEAKER) (test code = 3.1 mg/dL 2.3-4.7 604) [id number] 04:06:00 Test Item Value Reference Range Interpretation Comments MAGNESIUM (BEAKER) (test code = 2.1 mg/dL 1.6-2.6 627) COMPREHENSIVE METABOLIC [id number] 04:06:00 Test Item Value Reference Range Interpretation [...] DIALYSIS PATIEN TS. Specimen moderately ictericHEPATIC FUNCTION [id number] 04:06:00 Test Item Value Reference Range Interpretation [...] 347) Specimen moderately ictericLACTIC ACID, ARTERIAL, WHOLE [id number] 03:59:00 Test Item Value Reference Range Interpretation Comments LACTATE BLOOD 0.5 mmol/L 0.5-2.2 Specimen sligh tly ARTERIAL (2) (BEAKER) hemoly zed (test code = 2874) Effective 01/04/2016: Units/Reference Range ChangeNew: 0.5-2.2 mmol/L Previous: 5-20 mg/dLSpecimen moderately ictericBLOOD GAS, [id number] 03:58:00 Test Item Value Reference Range Interpretation [...] (test code = 1819) 40.0 % CALCIUM, [id number] 03:58:00 Test Item Value Reference Range Interpretation Comments CALCIUM IONIZED (BEAKER) (test 1.14 mmol/L 1.12-1.27 code = 698) PH, BLOOD (BEAKER) (test code = 7.41 1810) POCT-GLUCOSE [id number] 02:41:00 Test Item Value Reference Range Interpretation Comments POC-GLUCOSE METER 144 mg/dL 70-110 H TESTED AT [facility] 6720 (BEAKER) (test code = [place] 1538) [address] POCT-GLUCOSE [id number] 00:30:00 Test Item Value Reference Range Interpretation Comments POC-GLUCOSE METER 171 mg/dL 70-110 H TESTED AT [place] [address] ([facility] (test code = [place] 1538) [address] POTASSIUM-STAT [id number] 00:08:00 Test Item Value Reference Range Interpretation Comments POTASSIUM (BEAKER) (test code = 4.5 meq/L 3.6-5.5 379) POCT-GLUCOSE [id number] 23:30:00 Test Item Value Reference Range Interpretation Comments POC-GLUCOSE METER 159 mg/dL 70-110 H TESTED AT [place] [address] ([facility]) (test code = [facility] Humberto [facility] 1538) [address] POCT-GLUCOSE [id number] 21:08:00 Test Item Value Reference Range Interpretation Comments POC-GLUCOSE METER 194 mg/dL 70-110 H TESTED AT [place] [address] ([facility]) (test code = [place] [facility] 1538) [address] POCT-GLUCOSE [id number] 21:08:00 Test Item Value Reference Range Interpretation Comments POC-GLUCOSE METER 230 mg/dL 70-110 H TESTED AT [place] [address] ([facility]) (test code = [facility] [place] [facility] 1538) [address] CALCIUM, [id number] 19:23:00 Test Item Value Reference Range Interpretation Comments CALCIUM IONIZED (BEAKER) (test 1.14 mmol/L 1.12-1.27 code = 698) PH, BLOOD (BEAKER) (test code = 7.36 1810) POTASSIUM-STAT [id number] 19:23:00 Test Item Value Reference Range Interpretation Comments POTASSIUM (BEAKER) (test code = 5.1 meq/L 3.6-5.5 379) [id number] 17:27:00 Test Item Value Reference Range Interpretation Comments PHOSPHORUS (BEAKER) (test code = 2.2 mg/dL 2.3-4.7 L 604) [id number] 17:27:00 Test Item Value Reference Range Interpretation Comments MAGNESIUM (BEAKER) (test code = 2.1 mg/dL 1.6-2.6 627) PH, [id number] 17:03:00 Test Item Value Reference Range Interpretation Comments PH ARTERIAL (BEAKER) (test code = 383) 7.39 7.35-7.45 POCT-GLUCOSE [id number] 16:43:00 Test Item Value Reference Range Interpretation Comments POC-GLUCOSE METER 95 mg/dL 70-110 TESTED AT [place] [address] ([facility]) (test code = [place] [facility] [address] 1538) POCT-GLUCOSE [id number] 14:41:00 Test Item Value Reference Range Interpretation Comments POC-GLUCOSE METER 134 mg/dL 70-110 H TESTED AT [place] [address] ([facility]) (test code = [place] [facility] 1538) [address] RAD, ABDOMEN/KUB, 1 VIEW [id number] 13:16:00Reason for exam:- >constipationShould this be performed [...] No acute osseous abnormality. Signed: Kay Walter [facility] Verified Date/Time: 01/16/2018 13:16:27 [facility] Electronically signed by: KAY WALTER on01/16/2018 01:16 PMCALCIUM, [id number] 12:38:00 Test Item Value Reference Range Interpretation Comments CALCIUM IONIZED ([facility]) (test 1.14 mmol/L 1.12-1.27 code = 698) PH, BLOOD ([facility]) (test code = 7.40 1810) POCT-GLUCOSE [id number] 12:29:00 Test Item Value Reference Range Interpretation Comments POC-GLUCOSE METER 127 mg/dL 70-110 H TESTED AT [place] [address] ([facility]) (test code = [place] [facility] 1538) [address] POCT-GLUCOSE [id number] 10:34:00 Test Item Value Reference Range Interpretation Comments POC-GLUCOSE METER 130 mg/dL 70-110 H TESTED AT [place] [address] ([facility]) (test code = [place] 1538) [address] POCT-GLUCOSE [id number] 09:10:00 Test Item Value Reference Range Interpretation Comments POC-GLUCOSE METER 151 mg/dL 70-110 H TESTED AT [facility] 6720 ([facility]) (test code = [place] 1538) [address] HEPARIN ASSAY - [id number] 09:00:00 Test Item Value Reference Range Interpretation Comments UNFRACTIONATED HEPARIN-ANTI 10A < u/ml 0.30-0.70 L (AKER) (test code = 1606) Recommendations for Monitoring Unfractionated Heparin Therapeutic Range: 0.3- 0.7 u/mL with [facility] & AUTO DIFFERENTIAL 2018-01-16 08:55:00 [...] H (test code = 413) OXYGEN SATURATION, [id number] 08:30:00 Test Item Value Reference Range Interpretation Comments O2 SATURATION (MEASURED) (JARROD) 87.1 % (test code = 1455) RAD, CHEST, 1 VIEW, NON [id number] 08:11:00Reason for exam:->acute respiratory insufficiencyShould this be performed at the bedside?->YesFINAL REPORT CLINICAL HISTORY: acute respiratory insufficiency TECHNIQUE: 1 view of the chest. COMPARISON: 01/15/2018 IMPRESSION: The Brush-Moni catheter has been removed. The supporting lines and tubes are otherwise unchanged. There is no pneumothorax. Mild bilateral perihilar lung opacities have decreased. The cardiomediastinal silhouette is magnified by technique with sternotomy wires. Signed: Lorna Slade MDReport Verified Date/Time: 01/16/2018 08:11:02 Reading Location: [facility] Radiology Reading Room POCT- GLUCOSE [id number] 06:43:00 Test Item Value Reference Range Interpretation Comments POC-GLUCOSE METER 107 mg/dL 70-110 TESTED AT [facility] 6720 (JARROD) (test code = [place] 1538) [address] U/S, ABDOMINAL, [id number] 05:25:00Abdomen limited area? Add comment if clarification [...] MDReport Verified Date/Time: 01/16/2018 05:25:06 Reading Location: [facility] C013Y CT Body Reading Room IC ACID, ARTERIAL, WHOLE [id number] 04:06:00 Test Item Value Reference Range Interpretation Comments LACTATE BLOOD ARTERIAL (2) 0.6 mmol/L 0.5-2.2 (BEAKER) (test code = 2874) Effective 01/04/2016: Units/Reference Range ChangeNew: 0.5-2.2 mmol/L Previous: 5-20 mg/dLSpecimen moderately [id number] 04:00:00 Test Item Value Reference Range Interpretation Comments PHOSPHORUS (BEAKER) (test code = 2.2 mg/dL 2.3-4.7 L 604) [id number] 04:00:00 Test Item Value Reference Range Interpretation Comments MAGNESIUM (BEAKER) (test code = 2.0 mg/dL 1.6-2.6 627) [id number] 04:00:00 Test Item Value Reference Range Interpretation Comments CALCIUM (BEAKER) (test code = 697) 8.5 mg/dL 8.4-10.2 COMPREHENSIVE METABOLIC [id number] 04:00:00 Test Item Value Reference Range Interpretation [...] DIALYSIS PATIEN TS. Specimen moderately ictericHEPATIC FUNCTION [id number] 04:00:00 Test Item Value Reference Range Interpretation [...] 6-55 H 347) Specimen moderately ictericBLOOD GAS, [id number] 03:51:00 Test Item Value Reference Range Interpretation [...] (test code = 1819) 60.0 % PROTHROMBIN [id number] 03:51:00 Test Item Value Reference Range Interpretation Comments PROTIME (BEAKER) (test code = 15.2 seconds 11.7-14.7 H 759) INR (BEAKER) (test code = 370) 1.2 <=5.9 RECOMMENDED COUMADIN/WARFARIN INR THERAPY RANGESSTANDARD DOSE: 2.0 - 3.0 Includes: PROPHYLAXIS forvenous thrombosis, systemic embolization; TREATMENT for venous thrombosis and/or pulmonary embolus.HIGH RISK: Target INR is 2.5-3.5 for patients with mechanical heart valves.CALCIUM, [id number] 03:51:00 Test Item Value Reference Range Interpretation Comments CALCIUM IONIZED (BEAKER) (test 1.17 mmol/L 1.12-1.27 code = 698) PH, BLOOD ([facility]) (test code = 7.42 1810) POCT-GLUCOSE [id number] 02:08:00 Test Item Value Reference Range Interpretation Comments POC-GLUCOSE METER 110 mg/dL 70-110 TESTED AT [place] [address] ([facility]) (test code = [place] [facility] 1538) [address] POCT-GLUCOSE [id number] 01:14:00 Test Item Value Reference Range Interpretation Comments POC-GLUCOSE METER 107 mg/dL 70-110 TESTED AT [place] [address] ([facility]) (test code = [place] [facility] 1538) [address] POCT-GLUCOSE [id number] 00:29:00 Test Item Value Reference Range Interpretation Comments POC-GLUCOSE METER 129 mg/dL 70-110 H TESTED AT [place] [address] ([facility]) (test code = [place] [facility] 1538) [address] POCT-GLUCOSE [id number] 23:07:00 Test Item Value Reference Range Interpretation Comments POC-GLUCOSE METER 152 mg/dL 70-110 H TESTED AT [facility] 6720 ([facility] (test code = [place] [facility] 1538) [address] POCT-GLUCOSE [id number] 22:09:00 Test Item Value Reference Range Interpretation Comments POC-GLUCOSE METER 171 mg/dL 70-110 H TESTED AT [place] [address] ([facility]) (test code = [place] [facility] 1538) [address] POCT-GLUCOSE [id number] 21:13:00 Test Item Value Reference Range Interpretation Comments POC-GLUCOSE METER 171 mg/dL 70-110 H TESTED AT [place] [address] ([facility]) ([facility] = [facility] 1538) [address] CALCIUM, [id number] 20:50:00 Test Item Value Reference Range Interpretation Comments CALCIUM IONIZED ([facility]) (test 1.15 mmol/L 1.12-1.27 code = 698) PH, BLOOD ([facility]) (test code = 7.34 1810) POCT-GLUCOSE [id number] 20:21:00 Test Item Value Reference Range Interpretation Comments POC-GLUCOSE METER 206 mg/dL 70-110 H TESTED AT [place] [address] ([facility]) (test code = [facility] [place] [facility] 1538) [address] POCT-GLUCOSE [id number] 19:16:00 Test Item Value Reference Range Interpretation Comments POC-GLUCOSE METER 197 mg/dL 70-110 H TESTED AT [place] [address] ([facility]) (test code = [facility] [place] [facility] 1538) [address] [id number] 17:15:00 Test Item Value Reference Range Interpretation Comments PHOSPHORUS (BEAKER) (test code = 4.1 mg/dL 2.3-4.7 604) [id number] 17:15:00 Test Item Value Reference Range Interpretation Comments MAGNESIUM (BEAKER) (test code = 1.9 mg/dL 1.6-2.6 627) EEG AWAKE AND [id number] 14:56:00For STAT EEG- after 5 PM weekdays, weekends and holidays, page the on-call EEG TechReason for exam:->AMSShould this be performed at the bedside?->YesDate(s) of EE01/15/2018DATE OF REPORT: 01/15/2018ACC: [id number] Number: [id number] Location: Inpatient ICUStart time: 13:18Stop time: 13:40ICD-10: R41.82CPT Code: 27071 HISTORY: 62 y/o man with hxof AFib, [...] Kwon MD, MSClinic al Neurophysiology/Epilepsy Attending HEPARIN [id number] 13:21:00 Test Item Value Reference Range Interpretation Comments HEPARIN ANTIBODY (BEAKER) (test code Negative Negative = 646) HEPARIN ANTIBODY OD (BEAKER) (test 0.076 <0.400 code = 2659) 4T TOTAL SCORE (BEAKER) (test code = 5 6213) Probability of HIT based on scoring system: 6-8 = High probability; 4-5 = intermediate probability;0-3 = low probabilityPOCT-GLUCOSE [id number] 12:26:00 Test Item Value Reference Range Interpretation Comments POC-GLUCOSE METER 128 mg/dL 70-110 H TESTED AT [facility] 6720 ([facility]) (test code = [place] 1538) [address] FIBRIN SOLUBLE [id number] 11:02:00 Test Item Value Reference Range Interpretation Comments FIBRIN SOLUBLE MONOMER (AKER) Negative (test code = 1416) HEPARIN ASSAY - [id number] 10:20:00 Test Item Value Reference Range Interpretation Comments UNFRACTIONATED HEPARIN-ANTI 10A < u/ml 0.30-0.70 L ([facility]) (test code = 1606) Recommendations for Monitoring Unfractionated Heparin Therapeutic Range: 0.3- 0.7 u/mL with continuous IV [id number] 10:14:00 Test Item Value Reference Range Interpretation Comments D-DIMER QUANTITATIVE ([facility]) 3.76 MG/L FEU <0.50 H [...] of thrombosis is within 95-100% range. GLUCOSE-STAT [id number] 10:03:00 Test Item Value Reference Range Interpretation Comments GLUCOSE RANDOM ([facility]) (test code 151 mg/dL 70-110 H = 652) CALCIUM, [id number] 10:02:00 Test Item Value Reference Range Interpretation Comments CALCIUM IONIZED (AKER) (test 1.13 mmol/L 1.12-1.27 code = 698) PH, BLOOD (AKER) (test code = 7.36 1810) POTASSIUM-STAT [id number] 10:01:00 Test Item Value Reference Range Interpretation Comments POTASSIUM (BEAKER) (test code = 4.3 meq/L 3.6-5.5 379) CBC W/PLT COUNT & AUTO [id number] 07:43:00 Test Item Value Reference Range Interpretation Comments WHITE BLOOD CELL COUNT (AKER) 14.7 K/ L 3.5-10.5 H (test code [...] = 2801) RAD, CHEST, 1 VIEW, NON [id number] 04:00:00Reason for exam:->acute respiratory insufficiencyShould this be performed at the bedside?->Yes Addendum BeginsREPORT STATUS:A Correction: Comparison is made to previous dated 01/14/2018. Signed: Kellen Parra MDRjerryort Verified Date/Time: 01/15/2018 04:00:43 Reading Location: [address] Reading RoomAddendum EndsFINAL REPORT CLINICAL ADEEL CATION: Respiratory insufficiency Comparison: 01/15/2018 The cardiomediastinal contours are stable. Central pulmonary vascular congestion and bilateral parenchymal opacities are unchanged. There is no pneumothorax. Support lines are stable. Signed: Kellen Parra MDReport Verified Date/Time: 01/15/201803:46:27 Reading Location: [address] Reading Room [id number] 03:36:00 Test Item Value Reference Range Interpretation Comments PHOSPHORUS (BEAKER) (test code = 2.7 mg/dL 2.3-4.7 604) [id number] 03:36:00 Test Item Value Reference Range Interpretation Comments MAGNESIUM (BEAKER) (test code = 2.0 mg/dL 1.6-2.6 627) COMPREHENSIVE METABOLIC [id number] 03:36:00 Test Item Value Reference Range Interpretation [...] DIALYSIS PATIEN TS. Specimen slightly ictericHEPATIC FUNCTION [id number] 03:36:00 Test Item Value Reference Range Interpretation [...] U/L 6-55 H 347) Specimen slightly ictericPROTHROMBIN TIME/[id number] 03:35:00 Test Item Value Reference Range Interpretation [...] mmol/L Previous: 5-20 mg/dLSpecimen slightly ictericBLOOD GAS, [id number] 03:29:00 Test Item Value Reference Range Interpretation [...] code = 1819) 40.0 % OXYGEN SATURATION, [id number] 03:26:00 Test Item Value Reference Range Interpretation Comments O2 SATURATION (MEASURED) (BEAKER) 72.5 % (test code = 1455) CALCIUM, [id number] 00:17:00 Test Item Value Reference Range Interpretation Comments CALCIUM IONIZED (BEAKER) (test 1.19 mmol/L 1.12-1.27 code = 698) PH, BLOOD (BEAKER) (test code = 7.36 1810) POCT-GLUCOSE [id number] 00:15:00 Test Item Value Reference Range Interpretation Comments POC-GLUCOSE METER 144 mg/dL 70-110 H TESTED AT [facility] 6720 (BEAKER) (test code = [place] 1538) [address] POCT-GLUCOSE [id number] 22:43:00 Test Item Value Reference Range Interpretation Comments POC-GLUCOSE METER 98 mg/dL 70-110 TESTED AT [facility] 6720 ([facility] (test code = [place] [facility] [address]38) POCT-GLUCOSE [id number] 22:43:00 Test Item Value Reference Range Interpretation Comments POC-GLUCOSE METER 80 mg/dL 70-110 TESTED AT [facility] 6720 ([facility]) (test code = [place] [facility] [address]38) VANCOMYCIN LEVEL, [id number] 20:20:00 Test Item Value Reference Range Interpretation Comments VANCOMYCIN TROUGH (BEAKER) (test 20.1 ug/mL 10.0-20.0 H code = 522) Before vanc [id number] 16:52:00 Test Item Value Reference Range Interpretation Comments PHOSPHORUS (BEAKER) (test code = 1.7 mg/dL 2.3-4.7 L 604) [id number] 16:52:00 Test Item Value Reference Range Interpretation Comments MAGNESIUM (BEAKER) (test code = 2.3 mg/dL 1.6-2.6 627) [id number] 16:39:00 Test Item Value Reference Range Interpretation Comments AMMONIA (BEAKER) (test code = 348) 32 mol/L 18-72 PH, [id number] 16:01:00 Test Item Value Reference Range Interpretation Comments PH ARTERIAL (BEAKER) (test code = 383) 7.42 7.35-7.45 GLUCOSE-STAT [id number] 16:01:00 Test Item Value Reference Range Interpretation Comments GLUCOSE RANDOM (BEAKER) (test code = 95 mg/dL 70-110 652) POTASSIUM-STAT [id number] 16:01:00 Test Item Value Reference Range Interpretation Comments POTASSIUM (BEAKER) (test code = 4.3 meq/L 3.6-5.5 379) CALCIUM, [id number] 16:01:00 Test Item Value Reference Range Interpretation Comments CALCIUM IONIZED (BEAKER) (test 1.28 mmol/L 1.12-1.27 H code = 698) PH, BLOOD (BEAKER) (test code = 7.42 1810) CALCIUM, [id number] 12:19:00 Test Item Value Reference Range Interpretation Comments CALCIUM IONIZED (BEAKER) (test 1.36 mmol/L 1.12-1.27 H code = 698) PH, BLOOD (BEAKER) (test code = 7.41 1810) GLUCOSE-STAT [id number] 12:17:00 Test Item Value Reference Range Interpretation Comments GLUCOSE RANDOM (BEAKER) (test code = 94 mg/dL 70-110 652) POTASSIUM-STAT [id number] 12:17:00 Test Item Value Reference Range Interpretation Comments POTASSIUM (BEAKER) (test code = 4.3 meq/L 3.6-5.5 379) [id number] 11:34:00 Test Item Value Reference Range Interpretation Comments MAGNESIUM (BEAKER) (test code = 2.1 mg/dL 1.6-2.6 627) BASIC METABOLIC [id number] 11:34:00 Test Item Value Reference Range Interpretation [...] DIALYSIS PATIEN TS. Specimen slightly ictericHEPATIC FUNCTION [id number] 11:34:00 Test Item Value Reference Range Interpretation [...] 6-55 H 347) Specimen slightly ictericBLOOD GAS, [id number] 09:44:00 Test Item Value Reference Range Interpretation [...] (test code = 1819) 100.0 % GLUCOSE-STAT [id number] 09:42:00 Test Item Value Reference Range Interpretation Comments GLUCOSE RANDOM (BEAKER) (test code = 95 mg/dL 70-110 652) POTASSIUM-STAT [id number] 09:42:00 Test Item Value Reference Range Interpretation Comments POTASSIUM (BEAKER) (test code = 4.5 meq/L 3.6-5.5 379) CALCIUM, [id number] 09:38:00 Test Item Value Reference Range Interpretation Comments CALCIUM IONIZED (BEAKER) (test 1.26 mmol/L 1.12-1.27 code = 698) PH, BLOOD (BEAKER) (test code = 7.41 1810) HEPARIN ASSAY - [id number] 08:44:00 Test Item Value Reference Range Interpretation Comments UNFRACTIONATED HEPARIN-ANTI 10A < u/ml 0.30-0.70 L (BEAKER) (test code = 1606) Recommendations for Monitoring Unfractionated Heparin Therapeutic Range: 0.3- 0.7 u/mL with continuous IV infusionGLUCOSE-STAT [id number] 06:41:00 Test Item Value Reference Range Interpretation [...] (test 0.0 % 0.0-5.0 code = 1414) [id number] 05:05:00 Test Item Value Reference Range Interpretation Comments PHOSPHORUS (BEAKER) (test code = 2.5 mg/dL 2.3-4.7 604) [id number] 05:05:00 Test Item Value Reference Range Interpretation Comments MAGNESIUM (BEAKER) (test code = 2.1 mg/dL 1.6-2.6 627) HEPATIC FUNCTION [id number] 05:05:00 Test Item Value Reference Range Interpretation [...] 1266 U/L 6-55 H 347) Specimen slightly [id number] 05:05:00 Test Item Value Reference Range Interpretation Comments CALCIUM (BEAKER) (test code = 697) 9.0 mg/dL 8.4-10.2 LACTATE DEHYDROGENASE (LDH)2018-01-14 05:05:00 Test Item Value Reference Range Interpretation Comments LACTATE DEHYDROGENASE (BEAKER) (test 667 U/L 125-220 H code = 635) PROTHROMBIN [id number] 05:05:00 Test Item Value Reference Range Interpretation Comments PROTIME (BEAKER) (test code = 15.2 seconds 11.7-14.7 H 759) INR (BEAKER) (test code = 370) 1.2 <=5.9 RECOMMENDED COUMADIN/WARFARIN INR THERAPY RANGESSTANDARD DOSE: 2.0 - 3.0 Includes: PROPHYLAXIS forvenous thrombosis, systemic embolization; TREATMENT for venous thrombosis and/or pulmonary embolus.HIGH RISK: Target INR is 2.5-3.5 for patients with mechanical heart valves.[id number] 05:05:00 Test Item Value Reference Range Interpretation Comments FIBRINOGEN LEVEL (BEAKER) (test 280 mg/dl 225-434 code = 658) RAD, CHEST, 1 VIEW, NON [id number] 04:57:00Reason for exam:- >impella/ECMO/intubationShould this be performed at the bedside?->YesFINAL REPORT CLINICAL INDICATION: Support lines. Comparison: 01/13/2018 The cardiomediastinal contours are stable. Cardiac opacities may reflect atelectasis but pneumonitis should be excluded clinically. There is no pneumothorax. Support lines are stable. Signed: Kellen Parraort Verified Date/Time: 01/14/2018 04:57:02 Reading Location: [address] Reading Room LACTIC ACID, ARTERIAL, WHOLE [id number] 04:55:00 Test Item Value Reference Range Interpretation [...] H (BEAKER) (test code = 413) CALCIUM, [id number] 04:39:00 Test Item Value Reference Range Interpretation Comments CALCIUM IONIZED (BEAKER) (test 1.20 mmol/L 1.12-1.27 code = 698) PH, BLOOD (BEAKER) (test code = 7.37 1810) OXYGEN SATURATION, [id number] 04:38:00 Test Item Value Reference Range Interpretation Comments O2 SATURATION (MEASURED) (BEAKER) 75.3 % (test code = 1455) BLOOD GAS, [id number] 04:37:00 Test Item Value Reference Range Interpretation [...] (test code = 1819) 40.0 % GLUCOSE-STAT [id number] 04:37:00 Test Item Value Reference Range Interpretation Comments GLUCOSE RANDOM (BEAKER) (test code 154 mg/dL 70-110 H = 652) GLUCOSE-STAT [id number] 02:52:00 Test Item Value Reference Range Interpretation Comments GLUCOSE RANDOM (BEAKER) (test code 179 mg/dL 70-110 H = 652) GLUCOSE-STAT [id number] 01:26:00 Test Item Value Reference Range Interpretation Comments GLUCOSE RANDOM (BEAKER) (test code 195 mg/dL 70-110 H = 652) [id number] 00:08:00 Test Item Value Reference Range Interpretation Comments POTASSIUM (BEAKER) (test code = 4.2 meq/L 3.5-5.1 379) [id number] 00:08:00 Test Item Value Reference Range Interpretation Comments GLUCOSE RANDOM (BEAKER) (test code 237 mg/dL 70-105 H = 652) CBC W/PLT COUNT & AUTO [id number] 22:28:00 Test Item Value Reference Range Interpretation [...] = 413) RAD, CHEST, 1 VIEW, NON [id number] 21:50:00Reason for exam:->chest tubes/intubationShould this be performed [...] MDReport Verified Date/Time: 01/13/2018 21:50:50 Reading Location: [facility] C013W Consult Reading Room THROMBOELASTOGRAPH (TEG)2018-01-13 [...] % 0.0-5.0 code = 1414) BASIC METABOLIC [id number] 21:35:00 Test Item Value Reference Range Interpretation [...] APPLICABLE FOR DIALYSIS PATIEN TS. Specimen slightly [id number] 21:06:00 Test Item Value Reference Range Interpretation Comments PHOSPHORUS (BEAKER) (test code = 3.7 mg/dL 2.3-4.7 604) [id number] 21:06:00 Test Item Value Reference Range Interpretation Comments MAGNESIUM (BEAKER) (test code = 2.0 mg/dL 1.6-2.6 627) LACTIC ACID, ARTERIAL, WHOLE [id number] 21:06:00 Test Item Value Reference Range Interpretation Comments LACTATE BLOOD ARTERIAL (2) 1.8 mmol/L 0.5-2.2 (BEAKER) (test code = 2874) Effective 01/04/2016: Units/Reference Range ChangeNew: 0.5-2.2 mmol/L Previous: 5-20 mg/dLSpecimen slightly [id number] 21:01:00 Test Item Value Reference Range Interpretation Comments PARTIAL THROMBOPLASTIN TIME 35.1 seconds 22.5-36.0 (BEAKER) (test code = 760) [id number] 21:00:00 Test Item Value Reference Range Interpretation Comments FIBRINOGEN LEVEL (BEAKER) (test 253 mg/dl 225-434 code = 658) PROTHROMBIN [id number] 20:59:00 Test Item Value Reference Range Interpretation Comments PROTIME (BEAKER) (test code = 16.4 seconds 11.7-14.7 H 759) INR (BEAKER) (test code = 370) 1.3 <=5.9 RECOMMENDED COUMADIN/WARFARIN INR THERAPY RANGESSTANDARD DOSE: 2.0 - 3.0 Includes: PROPHYLAXIS forvenous thrombosis, systemic embolization; TREATMENT for venous thrombosis and/or pulmonary embolus.HIGH RISK: Target INR is 2.5-3.5 for patients with mechanical heart valves.BLOOD GAS, [id number] 20:47:00 Test Item Value Reference Range Interpretation [...] (test code = 1819) 40.0 % GLUCOSE-STAT [id number] 20:47:00 Test Item Value Reference Range Interpretation Comments GLUCOSE RANDOM (BEAKER) (test code 235 mg/dL 70-110 H = 652) CALCIUM, [id number] 20:47:00 Test Item Value Reference Range Interpretation Comments CALCIUM IONIZED (BEAKER) (test 0.97 mmol/L 1.12-1.27 L code = 698) PH, BLOOD (BEAKER) (test code = 7.39 1810) HGB/HCT (H&H) - STAT [id number] 20:46:00 Test Item Value Reference Range Interpretation Comments HEMOGLOBIN (BEAKER) (test code = 7.7 g/dL 13.0-16.8 L 410) HEMATOCRIT (BEAKER) (test code = 23.0 % 40.0-50.0 L 411) POTASSIUM-STAT [id number] 20:46:00 Test Item Value Reference Range Interpretation Comments POTASSIUM (BEAKER) (test code = 3.4 meq/L 3.6-5.5 L 379) SODIUM NA-STAT [id number] 20:46:00 Test Item Value Reference Range Interpretation Comments SODIUM (BEAKER) (test code = 381) 133 meq/L 135-148 L OXYGEN SATURATION, [id number] 20:42:00 Test Item Value Reference Range Interpretation Comments O2 SATURATION (MEASURED) (BEAKER) 74.1 % (test code = 1455) BLOOD GAS, [id number] 18:58:00 Test Item Value Reference Range Interpretation [...] code = 1819) 100.0 % SODIUM NA-STAT [id number] 18:58:00 Test Item Value Reference Range Interpretation Comments SODIUM (BEAKER) (test code = 381) 131 meq/L 135-148 L POTASSIUM-STAT [id number] 18:58:00 Test Item Value Reference Range Interpretation Comments POTASSIUM (BEAKER) (test code = 3.4 meq/L 3.6-5.5 L 379) GLUCOSE-STAT [id number] 18:58:00 Test Item Value Reference Range Interpretation Comments GLUCOSE RANDOM (BEAKER) (test code 214 mg/dL 70-110 H = 652) HGB/HCT (H&H) - STAT [id number] 18:58:00 Test Item Value Reference Range Interpretation [...] % 0.0-5.0 code = 1414) BLOOD GAS, [id number] 18:11:00 Test Item Value Reference Range Interpretation [...] code = 1819) 97.0 % SODIUM NA-STAT [id number] 18:11:00 Test Item Value Reference Range Interpretation Comments SODIUM (BEAKER) (test code = 381) 132 meq/L 135-148 L GLUCOSE-STAT [id number] 18:11:00 Test Item Value Reference Range Interpretation Comments GLUCOSE RANDOM (BEAKER) (test code 200 mg/dL 70-110 H = 652) HGB/HCT (H&H) - STAT [id number] 18:11:00 Test Item Value Reference Range Interpretation Comments HEMOGLOBIN (BEAKER) (test code = 8.2 g/dL 13.0-16.8 L 410) HEMATOCRIT (BEAKER) (test code = 24.0 % 40.0-50.0 L 411) POTASSIUM-STAT [id number] 18:07:00 Test Item Value Reference Range Interpretation Comments POTASSIUM (BEAKER) (test code = 3.5 meq/L 3.6-5.5 L 379) [id number] 16:37:00 Test Item Value Reference Range Interpretation Comments PHOSPHORUS (BEAKER) (test code = 2.5 mg/dL 2.3-4.7 604) [id number] 16:37:00 Test Item Value Reference Range Interpretation Comments MAGNESIUM (BEAKER) (test code = 2.1 mg/dL 1.6-2.6 627) [id number] 16:29:00 Test Item Value Reference Range Interpretation [...] for patients with mechanical heart valves.BLOOD GAS, [id number] 16:16:00 Test Item Value Reference Range Interpretation [...] (test code = 1819) 40.0 % CALCIUM, [id number] 16:14:00 Test Item Value Reference Range Interpretation Comments CALCIUM IONIZED (BEAKER) (test 1.09 mmol/L 1.12-1.27 L code = 698) PH, BLOOD (BEAKER) (test code = 7.64 1810) GLUCOSE-STAT [id number] 16:12:00 Test Item Value Reference Range Interpretation Comments GLUCOSE RANDOM (BEAKER) (test code 182 mg/dL 70-110 H = 652) CALCIUM, [id number] 12:53:00 Test Item Value Reference Range Interpretation Comments CALCIUM IONIZED (BEAKER) (test 1.12 mmol/L 1.12-1.27 code = 698) PH, BLOOD (BEAKER) (test code = 7.51 1810) BLOOD GAS, [id number] 12:53:00 Test Item Value Reference Range Interpretation [...] 1819) 40.0 % HGB/HCT (H&H) - STAT [id number] 12:53:00 Test Item Value Reference Range Interpretation Comments HEMOGLOBIN (BEAKER) (test code = 8.3 g/dL 13.0-16.8 L 410) HEMATOCRIT (BEAKER) (test code = 24.0 % 40.0-50.0 L 411) GLUCOSE-STAT [id number] 12:53:00 Test Item Value Reference Range Interpretation Comments GLUCOSE RANDOM (BEAKER) (test code 185 mg/dL 70-110 H = 652) POTASSIUM-STAT [id number] 12:52:00 Test Item Value Reference Range Interpretation Comments POTASSIUM (BEAKER) (test code = 3.7 meq/L 3.6-5.5 379) CBC W/PLT COUNT & AUTO [id number] 11:04:00 Test Item Value Reference Range Interpretation [...] 0-0 H (test code = 413) POTASSIUM-STAT [id number] 10:49:00 Test Item Value Reference Range Interpretation Comments POTASSIUM (BEAKER) (test code = 3.8 meq/L 3.6-5.5 379) HEPARIN ASSAY - [id number] 09:55:00 Test Item Value Reference Range Interpretation Comments UNFRACTIONATED HEPARIN-ANTI 10A 0.14 u/ml 0.30-0.70 L (BEAKER) (test code = 1606) Recommendations for Monitoring Unfractionated Heparin Therapeutic Range: 0.3- 0.7 u/mL with continuous IV [id number] 09:54:00 Test Item Value Reference Range Interpretation Comments PARTIAL THROMBOPLASTIN TIME 57.6 seconds 22.5-36.0 H (BEAKER) (test code = 760) BLOOD GAS, [id number] 09:33:00 Test Item Value Reference Range Interpretation [...] (test code = 1819) 40.0 % GLUCOSE-STAT [id number] 09:33:00 Test Item Value Reference Range Interpretation Comments GLUCOSE RANDOM (BEAKER) (test code 192 mg/dL 70-110 H = 652) GLUCOSE-STAT [id number] 09:33:00 Test Item Value Reference Range Interpretation Comments GLUCOSE RANDOM (BEAKER) (test code 192 mg/dL 70-110 H = 652) CALCIUM, [id number] 09:32:00 Test Item Value Reference Range Interpretation Comments CALCIUM IONIZED (BEAKER) (test 1.15 mmol/L 1.12-1.27 code = 698) PH, BLOOD (BEAKER) (test code = 7.51 1810) BLOOD GAS, [id number] 07:23:00 Test Item Value Reference Range Interpretation [...] % 0.0-5.0 code = 1414) BLOOD GAS, [id number] 06:13:00 Test Item Value Reference Range Interpretation [...] code = 1819) 40.0 % BLOOD GAS, [id number] 05:13:00 Test Item Value Reference Range Interpretation [...] (BEAKER) (test code = 1819) 100.0 % [id number] 04:41:00 Test Item Value Reference Range Interpretation Comments PARTIAL THROMBOPLASTIN TIME 61.3 seconds 22.5-36.0 H (BEAKER) (test code = 760) RAD, CHEST, 1 VIEW, NON [id number] 04:38:00Reason for exam:- >impella/ECMO/intubationShould this be performed at the bedside?->YesFINAL REPORT CLINICAL INDICATION: Support lines. Comparison: 01/12/2018 The cardiomediastinal contours are stable. Central pulmonary vascular prominence and bilateral parenchymalopacities are previous. There is no pneumothorax. Support lines are stable. Signed: Kellen Parra MDReport Verified Date/Time: 01/13/2018 04:38:41 Reading Location: [address] Reading Room HEPATIC FUNCTION [id number] 04:25:00 Test Item Value Reference Range Interpretation [...] 2232 U/L 6-55 H 347) Specimen slightly [id number] 04:19:00 Test Item Value Reference Range Interpretation Comments PHOSPHORUS (BEAKER) (test code = 4.1 mg/dL 2.3-4.7 604) [id number] 04:19:00 Test Item Value Reference Range Interpretation Comments MAGNESIUM (BEAKER) (test code = 1.9 mg/dL 1.6-2.6 627) [id number] 04:19:00 Test Item Value Reference Range Interpretation Comments CALCIUM (BEAKER) (test code = 697) 8.6 mg/dL 8.4-10.2 BASIC METABOLIC [id number] 04:19:00 Test Item Value Reference Range Interpretation [...] 1658 U/L 125-220 H code = 635) [id number] 04:16:00 Test Item Value Reference Range Interpretation Comments FIBRINOGEN LEVEL (BEAKER) (test 299 mg/dl 225-434 code = 658) LACTIC ACID, ARTERIAL, WHOLE [id number] 04:16:00 Test Item Value Reference Range Interpretation Comments LACTATE BLOOD ARTERIAL (2) 0.8 mmol/L 0.5-2.2 (BEAKER) (test code = 2874) Effective 01/04/2016: Units/Reference Range ChangeNew: 0.5-2.2 mmol/L Previous: 5-20 mg/dLSpecimen slightly ictericPROTHROMBIN [id number] 04:15:00 Test Item Value Reference Range Interpretation Comments PROTIME (BEAKER) (test code = 15.8 seconds 11.7-14.7 H 759) INR (BEAKER) (test code = 370) 1.3 <=5.9 RECOMMENDED COUMADIN/WARFARIN INR THERAPY RANGESSTANDARD DOSE: 2.0 - 3.0 Includes: PROPHYLAXIS forvenous thrombosis, systemic embolization; TREATMENT for venous thrombosis and/or pulmonary embolus.HIGH RISK: Target INR is 2.5-3.5 for patients with mechanical heart valves.CALCIUM, [id number] 04:04:00 Test Item Value Reference Range Interpretation Comments CALCIUM IONIZED (BEAKER) (test 1.15 mmol/L 1.12-1.27 code = 698) PH, BLOOD (BEAKER) (test code = 7.33 1810) BLOOD GAS, [id number] 04:03:00 Test Item Value Reference Range Interpretation [...] (test code = 1819) 40.0 % PLATELET [id number] 03:58:00 Test Item Value Reference Range Interpretation Comments PLATELET COUNT (BEAKER) (test code 89 K/CU MM 150-450 L = 756) OXYGEN SATURATION, [id number] 03:57:00 Test Item Value Reference Range Interpretation Comments O2 SATURATION (MEASURED) (BEAKER) 79.4 % (test code = 1455) BLOOD GAS, [id number] 01:19:00 Test Item Value Reference Range Interpretation [...] (test code = 1819) 40.0 % GLUCOSE-STAT [id number] 01:19:00 Test Item Value Reference Range Interpretation Comments GLUCOSE RANDOM (BEAKER) (test code 177 mg/dL 70-110 H = 652) POTASSIUM-STAT [id number] 01:18:00 Test Item Value Reference Range Interpretation Comments POTASSIUM (BEAKER) (test code = 4.0 meq/L 3.6-5.5 379) CALCIUM, [id number] 01:17:00 Test Item Value Reference Range Interpretation [...] (test 0.0 % 0.0-5.0 code = 1414) [id number] 20:36:00 Test Item Value Reference Range Interpretation Comments POTASSIUM (BEAKER) (test code = 4.2 meq/L 3.5-5.1 379) [id number] 20:36:00 Test Item Value Reference Range Interpretation Comments MAGNESIUM (BEAKER) (test code = 1.8 mg/dL 1.6-2.6 627) [id number] 20:36:00 Test Item Value Reference Range Interpretation Comments PHOSPHORUS (BEAKER) (test code = 3.5 mg/dL 2.3-4.7 604) LACTIC ACID, ARTERIAL, WHOLE [id number] 20:33:00 Test Item Value Reference Range Interpretation Comments LACTATE BLOOD ARTERIAL (2) 0.8 mmol/L 0.5-2.2 (BEAKER) (test code = 2874) Effective 01/04/2016: Units/Reference Range ChangeNew: 0.5-2.2 mmol/L Previous: 5-20 mg/dLSpecimen slightly ictericBLOOD GAS, [id number] 20:20:00 Test Item Value Reference Range Interpretation [...] (test code = 1819) 40.0 % GLUCOSE-STAT [id number] 20:20:00 Test Item Value Reference Range Interpretation Comments GLUCOSE RANDOM (BEAKER) (test code 180 mg/dL 70-110 H = 652) [id number] 18:34:00 Test Item Value Reference Range Interpretation Comments GLUCOSE RANDOM (BEAKER) (test code 218 mg/dL 70-105 H = 652) BLOOD GAS, [id number] 18:18:00 Test Item Value Reference Range Interpretation [...] (BEAKER) (test code = 1819) 40.0 % [id number] 17:12:00 Test Item Value Reference Range Interpretation Comments PARTIAL THROMBOPLASTIN TIME 54.1 seconds 22.5-36.0 H (BEAKER) (test code = 760) [id number] 17:12:00 Test Item Value Reference Range Interpretation Comments FIBRINOGEN LEVEL (BEAKER) (test 285 mg/dl 225-434 code = 658) PROTHROMBIN [id number] 17:10:00 Test Item Value Reference Range Interpretation [...] ChangeNew: 0.5-2.2 mmol/L Previous: 5-20 mg/dLSpecimen slightly [id number] 17:01:00 Test Item Value Reference Range Interpretation Comments POTASSIUM (BEAKER) (test code = 4.5 meq/L 3.5-5.1 379) [id number] 17:01:00 Test Item Value Reference Range Interpretation Comments GLUCOSE RANDOM (BEAKER) (test code 239 mg/dL 70-105 H = 652) PLATELET [id number] 16:46:00 Test Item Value Reference Range Interpretation Comments PLATELET COUNT (BEAKER) (test code 86 K/CU MM 150-450 L = 756) BLOOD GAS, [id number] 16:36:00 Test Item Value Reference Range Interpretation [...] (test 37.0 C code = 1818) CALCIUM, [id number] 16:36:00 Test Item Value Reference Range Interpretation Comments CALCIUM IONIZED (BEAKER) (test 1.08 mmol/L 1.12-1.27 L code = 698) PH, BLOOD (BEAKER) (test code = 7.46 1810) [id number] 15:00:00 Test Item Value Reference Range Interpretation Comments POTASSIUM (BEAKER) (test code = 4.7 meq/L 3.5-5.1 379) [id number] 15:00:00 Test Item Value Reference Range Interpretation Comments GLUCOSE RANDOM (BEAKER) (test code 210 mg/dL 70-105 H = 652) BLOOD GAS, [id number] 14:42:00 Test Item Value Reference Range Interpretation [...] 40.0 % RAD, CHEST, 1 VIEW, NON [id number] 14:41:00Reason for exam:->chest tube insertionFINAL REPORT CHEST [...] MDReport Verified Date/Time: 01/12/2018 14:41:22 Reading Location: [address] Transitional Reading Room MBOELASTOGRAPH (TEG)2018-01-12 12:43:00 [...] (test 0.0 % 0.0-5.0 code = 1414) [id number] 11:23:00 Test Item Value Reference Range Interpretation [...] exclusion of thrombosis is within 95-100% range. [id number] 10:10:00 Test Item Value Reference Range Interpretation Comments MAGNESIUM (BEAKER) 2.1 mg/dL 1.6-2.6 Specimen slightly (test code = 627) hemolyzed [id number] 10:10:00 Test Item Value Reference Range Interpretation Comments PHOSPHORUS (BEAKER) 4.2 mg/dL 2.3-4.7 Specimen slightly (test code = 604) hemolyzed [id number] 10:10:00 Test Item Value Reference Range Interpretation Comments POTASSIUM (BEAKER) 5.0 meq/L 3.5-5.1 Specimen slightly (test code = 379) hemolyzed [id number] 10:10:00 Test Item Value Reference Range Interpretation Comments GLUCOSE RANDOM (BEAKER) (test code 204 mg/dL 70-105 H = 652) [id number] 10:07:00 Test Item Value Reference Range Interpretation Comments FIBRINOGEN LEVEL (BEAKER) (test 251 mg/dl 225-434 code = 658) ANTITHROMBIN [id number] 10:04:00 Test Item Value Reference Range Interpretation Comments ANTITHROMBIN III ACTIVITY (BEAKER) 46.0 % 80.0-120.0 L (test code = 711) [id number] 09:58:00 Test Item Value Reference Range Interpretation Comments PARTIAL THROMBOPLASTIN TIME 59.8 seconds 22.5-36.0 H (BEAKER) (test code = 760) PROTHROMBIN [id number] 09:57:00 Test Item Value Reference Range Interpretation Comments PROTIME (BEAKER) (test code = 19.3 seconds 11.7-14.7 H 759) INR (BEAKER) (test code = 370) 1.6 <=5.9 RECOMMENDED COUMADIN/WARFARIN INR THERAPY RANGESSTANDARD DOSE: 2.0 - 3.0 Includes: PROPHYLAXIS forvenous thrombosis, systemic embolization; TREATMENT for venous thrombosis and/or pulmonary embolus.HIGH RISK: Target INR is 2.5-3.5 for patients with mechanical heart valves.PLATELET [id number] 09:49:00 Test Item Value Reference Range Interpretation Comments PLATELET COUNT (BEAKER) (test code 94 K/CU MM 150-450 L = 756) BLOOD GAS, [id number] 09:47:00 Test Item Value Reference Range Interpretation [...] (test code = 1819) 40.0 % CALCIUM, [id number] 09:46:00 Test Item Value Reference Range Interpretation Comments CALCIUM IONIZED (BEAKER) (test 1.12 mmol/L 1.12-1.27 code = 698) PH, BLOOD (BEAKER) (test code = 7.47 1810) HEPARIN ASSAY - [id number] 08:21:00 Test Item Value Reference Range Interpretation Comments UNFRACTIONATED HEPARIN-ANTI 10A < u/ml 0.30-0.70 L (BEAKER) (test code = 1606) Recommendations for Monitoring Unfractionated Heparin Therapeutic Range: 0.3- 0.7 u/mL with continuous IV infusionLACTATE DEHYDROGENASE (LDH)2018-01-12 07:40:00 Test Item Value Reference Range Interpretation Comments LACTATE DEHYDROGENASE (BEAKER) (test 3247 U/L 125-220 H code = 635) [id number] 07:38:00 Test Item Value Reference Range Interpretation Comments MAGNESIUM (BEAKER) (test code = 2.3 mg/dL 1.6-2.6 627) [id number] 07:38:00 Test Item Value Reference Range Interpretation Comments GLUCOSE RANDOM (BEAKER) (test code 217 mg/dL 70-105 H = 652) LACTIC ACID, ARTERIAL, WHOLE [id number] 07:27:00 Test Item Value Reference Range Interpretation Comments LACTATE BLOOD ARTERIAL (2) 1.4 mmol/L 0.5-2.2 (BEAKER) (test code = 2874) Effective 01/04/2016: Units/Reference Range ChangeNew: 0.5-2.2 mmol/L Previous: 5-20 mg/dLSpecimen slightly ictericGLUCOSE-STAT [id number] 06:55:00 Test Item Value Reference Range Interpretation Comments GLUCOSE RANDOM (BEAKER) (test code 212 mg/dL 70-110 H = 652) BLOOD GAS, [id number] 06:55:00 Test Item Value Reference Range Interpretation [...] (test code = 1819) 40.0 % POTASSIUM-STAT [id number] 06:52:00 Test Item Value Reference Range Interpretation Comments POTASSIUM (BEAKER) (test code = 4.8 meq/L 3.6-5.5 379) BLOOD GAS, [id number] 06:43:00 Test Item Value Reference Range Interpretation [...] 100.0 % RAD, CHEST, 1 VIEW, NON [id number] 06:14:00Reason for exam:- >impella/ECMO/intubationShould this be performed [...] MDReport Verified Date/Time: 01/12/2018 06:14:29 Reading Location: [address] Transitional Reading Room LACTATE DEHYDROGENASE (LDH)2018-01-12 05:03:00 Test Item Value Reference Range Interpretation Comments LACTATE DEHYDROGENASE (BEAKER) (test 3014 U/L 125-220 H code = 635) HEPATIC FUNCTION [id number] 05:03:00 Test Item Value Reference Range Interpretation [...] 1544 U/L 6-55 H 347) Specimen slightly [id number] 05:01:00 Test Item Value Reference Range Interpretation Comments PHOSPHORUS (BEAKER) (test code = 5.0 mg/dL 2.3-4.7 H 604) [id number] 05:01:00 Test Item Value Reference Range Interpretation Comments MAGNESIUM (BEAKER) (test code = 2.1 mg/dL 1.6-2.6 627) [id number] 05:01:00 Test Item Value Reference Range Interpretation Comments CALCIUM (BEAKER) (test code = 697) 8.5 mg/dL 8.4-10.2 BASIC METABOLIC [id number] 05:01:00 Test Item Value Reference Range Interpretation [...] TS. Specimen slightly ictericLACTIC ACID, ARTERIAL, WHOLE [id number] 04:42:00 Test Item Value Reference Range Interpretation Comments LACTATE BLOOD ARTERIAL (2) 1.5 mmol/L 0.5-2.2 (BEAKER) (test code = 2874) Effective 01/04/2016: Units/Reference Range ChangeNew: 0.5-2.2 mmol/L Previous: 5-20 mg/dLSpecimen slightly [id number] 04:38:00 Test Item Value Reference Range Interpretation Comments FIBRINOGEN LEVEL (BEAKER) (test 252 mg/dl 225-434 code = 658) [id number] 04:38:00 Test Item Value Reference Range Interpretation Comments PARTIAL THROMBOPLASTIN TIME 54.6 seconds 22.5-36.0 H (BEAKER) (test code = 760) CBC W/PLT COUNT & AUTO [id number] 04:37:00 Test Item Value Reference Range Interpretation [...] PERCENT (BEAKER) (test code = 2801) PROTHROMBIN [id number] 04:37:00 Test Item Value Reference Range Interpretation Comments PROTIME (BEAKER) (test code = 19.9 seconds 11.7-14.7 H 759) INR (BEAKER) (test code = 370) 1.7 <=5.9 RECOMMENDED COUMADIN/WARFARIN INR THERAPY RANGESSTANDARD DOSE: 2.0 - 3.0 Includes: PROPHYLAXIS forvenous thrombosis, systemic embolization; TREATMENT for venous thrombosis and/or pulmonary embolus.HIGH RISK: Target INR is 2.5-3.5 for patients with mechanical heart valves.CALCIUM, [id number] 04:31:00 Test Item Value Reference Range Interpretation Comments CALCIUM IONIZED (BEAKER) (test 1.12 mmol/L 1.12-1.27 code = 698) PH, BLOOD (BEAKER) (test code = 7.42 1810) BLOOD GAS, [id number] 04:30:00 Test Item Value Reference Range Interpretation [...] (test code = 1819) 40.0 % PLATELET [id number] 04:23:00 Test Item Value Reference Range Interpretation Comments PLATELET COUNT (BEAKER) (test 110 K/CU MM 150-450 L code = 756) OXYGEN SATURATION, [id number] 04:14:00 Test Item Value Reference Range Interpretation Comments O2 SATURATION (MEASURED) (BEAKER) 79.7 % (test code = 1455) [id number] 02:54:00 Test Item Value Reference Range Interpretation Comments PARTIAL THROMBOPLASTIN TIME 134.3 seconds 22.5-36.0 H (BEAKER) (test code = 760) [id number] 02:25:00 Test Item Value Reference Range Interpretation Comments PARTIAL THROMBOPLASTIN TIME 94.0 seconds 22.5-36.0 H (BEAKER) (test code = 760) BLOOD GAS, [id number] 01:56:00 Test Item Value Reference Range Interpretation [...] (test code = 1819) 40.0 % GLUCOSE-STAT [id number] 01:53:00 Test Item Value Reference Range Interpretation Comments GLUCOSE RANDOM (BEAKER) (test code 201 mg/dL 70-110 H = 652) POTASSIUM-STAT [id number] 01:52:00 Test Item Value Reference Range Interpretation Comments POTASSIUM (BEAKER) (test code = 4.9 meq/L 3.6-5.5 379) LACTIC ACID, ARTERIAL, WHOLE [id number] 01:18:00 Test Item Value Reference Range Interpretation Comments LACTATE BLOOD ARTERIAL (2) 2.0 mmol/L 0.5-2.2 (BEAKER) (test code = 2874) Effective 01/04/2016: Units/Reference Range ChangeNew: 0.5-2.2 mmol/L Previous: 5-20 mg/dLSpecimen slightly [id number] 01:18:00 Test Item Value Reference Range Interpretation Comments POTASSIUM (BEAKER) (test code = 5.1 meq/L 3.5-5.1 379) [id number] 01:18:00 Test Item Value Reference Range Interpretation Comments GLUCOSE RANDOM (BEAKER) (test code 194 mg/dL 70-105 H = 652) PROTHROMBIN [id number] 01:15:00 Test Item Value Reference Range Interpretation Comments PROTIME (BEAKER) (test code = 21.2 seconds 11.7-14.7 H 759) INR (BEAKER) (test code = 370) 1.8 <=5.9 RECOMMENDED COUMADIN/WARFARIN INR THERAPY RANGESSTANDARD DOSE: 2.0 - 3.0 Includes: PROPHYLAXIS forvenous thrombosis, systemic embolization; TREATMENT for venous thrombosis and/or pulmonary embolus.HIGH RISK: Target INR is 2.5-3.5 for patients with mechanical heart valves.[id number] 01:15:00 Test Item Value Reference Range Interpretation Comments FIBRINOGEN LEVEL (BEAKER) (test 233 mg/dl 225-434 code = 658) PLATELET [id number] 01:01:00 Test Item Value Reference Range Interpretation Comments PLATELET COUNT (BEAKER) (test code 84 K/CU MM 150-450 L = 756) BLOOD GAS, [id number] 01:00:00 Test Item Value Reference Range Interpretation [...] (test code = 1819) 40.0 % CALCIUM, [id number] 01:00:00 Test Item Value Reference Range Interpretation [...] 0.0-5.0 (BEAKER) (test code = 1414) GLUCOSE-STAT [id number] 23:53:00 Test Item Value Reference Range Interpretation Comments GLUCOSE RANDOM (BEAKER) (test code 182 mg/dL 70-110 H = 652) BLOOD GAS, [id number] 23:52:00 Test Item Value Reference Range Interpretation [...] FIO2 (BEAKER) (test code = 1819) 40 [id number] 23:05:00 Test Item Value Reference Range Interpretation Comments PARTIAL THROMBOPLASTIN TIME > seconds 22.5-36.0 HH (BEAKER) (test code = 760) BLOOD GAS, [id number] 23:01:00 Test Item Value Reference Range Interpretation [...] (BEAKER) (test code = 1819) 100.0 % [id number] 22:46:00 Test Item Value Reference Range Interpretation Comments FIBRINOGEN LEVEL (BEAKER) (test 223 mg/dl 225-434 L code = 658) PROTHROMBIN [id number] 22:45:00 Test Item Value Reference Range Interpretation Comments PROTIME (BEAKER) (test code = 23.0 seconds 11.7-14.7 H 759) INR (BEAKER) (test code = 370) 2.0 <=5.9 RECOMMENDED COUMADIN/WARFARIN INR THERAPY RANGESSTANDARD DOSE: 2.0 - 3.0 Includes: PROPHYLAXIS forvenous thrombosis, systemic embolization; TREATMENT for venous thrombosis and/or pulmonary embolus.HIGH RISK: Target INR is 2.5-3.5 for patients with mechanical heart valves.BLOOD GAS, [id number] 22:22:00 Test Item Value Reference Range Interpretation [...] (test code = 1819) 40.0 % CALCIUM, [id number] 22:21:00 Test Item Value Reference Range Interpretation Comments CALCIUM IONIZED (BEAKER) (test 1.05 mmol/L 1.12-1.27 L code = 698) PH, BLOOD (BEAKER) (test code = 7.67 1810) PLATELET [id number] 22:21:00 Test Item Value Reference Range Interpretation Comments PLATELET COUNT (BEAKER) (test code 71 K/CU MM 150-450 L = 756) GLUCOSE-STAT [id number] 22:20:00 Test Item Value Reference Range Interpretation Comments GLUCOSE RANDOM (BEAKER) (test code 189 mg/dL 70-110 H = 652) POTASSIUM-STAT [id number] 22:19:00 Test Item Value Reference Range Interpretation [...] 2133 U/L 125-220 H code = 635) [id number] 20:55:00 Test Item Value Reference Range Interpretation Comments POTASSIUM (BEAKER) (test code = 5.4 meq/L 3.5-5.1 H 379) [id number] 20:55:00 Test Item Value Reference Range Interpretation Comments MAGNESIUM (BEAKER) (test code = 1.6 mg/dL 1.6-2.6 627) [id number] 20:55:00 Test Item Value Reference Range Interpretation Comments PHOSPHORUS (BEAKER) (test code = 2.9 mg/dL 2.3-4.7 604) GLUCOSE-STAT [id number] 20:31:00 Test Item Value Reference Range Interpretation Comments GLUCOSE RANDOM (BEAKER) (test code 166 mg/dL 70-110 H = 652) POTASSIUM-STAT [id number] 20:30:00 Test Item Value Reference Range Interpretation Comments POTASSIUM (BEAKER) (test code = 5.2 meq/L 3.6-5.5 379) BLOOD GAS, [id number] 20:30:00 Test Item Value Reference Range Interpretation [...] code = 1819) 40.0 % OXYGEN SATURATION, [id number] 18:46:00 Test Item Value Reference Range Interpretation Comments O2 SATURATION (MEASURED) (BEAKER) 81.5 % (test code = 1455) RAD, CHEST, 1 VIEW, NON [id number] 18:27:00Reason for exam:->impella/ECMO placementShould this be performed [...] MDReport Verified Date/Time: 01/11/2018 18:27:33 Reading Location: [address] Ortho Consult Reading Room [id number] 18:11:00 Test Item Value Reference Range Interpretation Comments PARTIAL THROMBOPLASTIN TIME > seconds 22.5-36.0 HH (BEAKER) (test code = 760) LACTATE DEHYDROGENASE (LDH)[id number] 18:09:00 Test Item Value Reference Range Interpretation Comments LACTATE DEHYDROGENASE 1590 U/L 125-220 H Specim en slightly (BEAKER) (test code = hemoly zed 635) BASIC METABOLIC [id number] 18:08:00 Test Item Value Reference Range Interpretation [...] S NOT APPLICABLE FOR DIALYSIS PATIEN TS. [id number] 17:54:00 Test Item Value Reference Range Interpretation Comments MAGNESIUM (BEAKER) 1.8 mg/dL 1.6-2.6 Specimen slightly (test code = 627) hemolyzed [id number] 17:54:00 Test Item Value Reference Range Interpretation Comments PHOSPHORUS (BEAKER) 4.6 mg/dL 2.3-4.7 Specimen slightly (test code = 604) hemolyzed LACTIC ACID, ARTERIAL, WHOLE [id number] 17:53:00 Test Item Value Reference Range Interpretation Comments LACTATE BLOOD 10.8 mmol/L 0.5-2.2 H Specimen sligh tly ARTERIAL (2) (BEAKER) hemoly zed (test code = 2874) Effective 01/04/2016: Units/Reference Range ChangeNew: 0.5-2.2 mmol/L Previous: 5-20 mg/[id number] 17:46:00 Test Item Value Reference Range Interpretation [...] exclusion of thrombosis is within 95-100% range. [id number] 17:46:00 Test Item Value Reference Range Interpretation Comments FIBRINOGEN LEVEL (BEAKER) (test 201 mg/dl 225-434 L code = 658) PROTHROMBIN [id number] 17:45:00 Test Item Value Reference Range Interpretation Comments PROTIME (BEAKER) (test code = 24.4 seconds 11.7-14.7 H 759) INR (BEAKER) (test code = 370) 2.2 <=5.9 RECOMMENDED COUMADIN/WARFARIN INR THERAPY RANGESSTANDARD DOSE: 2.0 - 3.0 Includes: PROPHYLAXIS forvenous thrombosis, systemic embolization; TREATMENT for venous thrombosis and/or pulmonary embolus.HIGH RISK: Target INR is 2.5-3.5 for patients with mechanical heart valves.BLOOD GAS, [id number] 17:44:00 Test Item Value Reference Range Interpretation [...] code = 1819) 40.0 % SODIUM NA-STAT [id number] 17:44:00 Test Item Value Reference Range Interpretation Comments SODIUM (BEAKER) (test code = 381) 134 meq/L 135-148 L POTASSIUM-STAT [id number] 17:44:00 Test Item Value Reference Range Interpretation Comments POTASSIUM (BEAKER) (test code = 6.2 meq/L 3.6-5.5 HH 379) GLUCOSE-STAT [id number] 17:44:00 Test Item Value Reference Range Interpretation Comments GLUCOSE RANDOM (BEAKER) (test code 147 mg/dL 70-110 H = 652) HGB/HCT (H&H) - STAT [id number] 17:44:00 Test Item Value Reference Range Interpretation Comments HEMOGLOBIN (BEAKER) (test code = 9.9 g/dL 13.0-16.8 L 410) HEMATOCRIT (BEAKER) (test code = 29.0 % 40.0-50.0 L 411) CALCIUM, [id number] 17:41:00 Test Item Value Reference Range Interpretation Comments CALCIUM IONIZED (BEAKER) (test 1.03 mmol/L 1.12-1.27 L code = 698) PH, BLOOD (BEAKER) (test code = 7.52 1810) OXYGEN SATURATION, [id number] 17:39:00 Test Item Value Reference Range Interpretation Comments O2 SATURATION (MEASURED) (BEAKER) 84.5 % (test code = 1455) CBC W/PLT COUNT & AUTO [id number] 17:37:00 Test Item Value Reference Range Interpretation [...] 0-1 PERCENT (BEAKER) (test code = 2801) [id number] 16:35:00 Test Item Value Reference Range Interpretation Comments ACTIVATED CLOTTING TIME 230 sec TEST ED AT [place] [address] ([facility]) (test code = [facility] 441) [address] [id number] 16:35:00 Test Item Value Reference Range Interpretation Comments ACTIVATED CLOTTING TIME 191 sec TEST ED AT [place] [address] ([facility]) (test code = [place] [address]) [address] BLOOD GAS, [id number] 16:20:00 Test Item Value Reference Range Interpretation [...] (test code = 1819) 100 BLOOD GAS, [id number] 16:19:00 Test Item Value Reference Range Interpretation [...] drawn from ECMO circuitLACTIC ACID, ARTERIAL, WHOLE [id number] 14:07:00 Test Item Value Reference Range Interpretation Comments LACTATE BLOOD 13.1 mmol/L 0.5-2.2 H Specimen sligh tly ARTERIAL (2) (BEAKER) hemoly zed (test code = 2874) Effective 01/04/2016: Units/Reference Range ChangeNew: 0.5-2.2 mmol/L Previous: 5-20 mg/dLPROTHROMBIN [id number] 14:01:00 Test Item Value Reference Range Interpretation Comments PROTIME (BEAKER) (test code = 20.9 seconds 11.7-14.7 H 759) INR (BEAKER) (test code = 370) 1.8 <=5.9 RECOMMENDED COUMADIN/WARFARIN INR THERAPY RANGESSTANDARD DOSE: 2.0 - 3.0 Includes: PROPHYLAXIS forvenous thrombosis, systemic embolization; TREATMENT for venous thrombosis and/or pulmonary embolus.HIGH RISK: Target INR is 2.5-3.5 for patients with mechanical heart valves.[id number] 14:01:00 Test Item Value Reference Range Interpretation Comments FIBRINOGEN LEVEL (BEAKER) (test 227 mg/dl 225-434 code = 658) PLATELET [id number] 13:54:00 Test Item Value Reference Range Interpretation Comments PLATELET COUNT (BEAKER) (test 115 K/CU MM 150-450 L code = 756) BLOOD GAS, [id number] 13:47:00 Test Item Value Reference Range Interpretation [...] (test code = 1819) 40.0 % GLUCOSE-STAT [id number] 13:47:00 Test Item Value Reference Range Interpretation Comments GLUCOSE RANDOM (BEAKER) (test code 134 mg/dL 70-110 H = 652) [id number] 12:33:00 Test Item Value Reference Range Interpretation Comments POTASSIUM (BEAKER) (test code = 5.6 meq/L 3.5-5.1 H 379) PRN - repeat glucose levels every 1 hour or as specified by insulin titration orders until glucose level is less than 450 mg/[id number] 12:33:00 Test Item Value Reference Range Interpretation Comments GLUCOSE RANDOM (BEAKER) (test code = 43 mg/dL 70-105 L 652) PRN - repeat glucose levels every 1 hour or as specified by insulin titration orders until glucose level is less than 450 mg/dLBASIC METABOLIC [id number] 11:05:00 Test Item Value Reference Range Interpretation [...] until glucose level is less than 450 mg/[id number] 11:05:00 Test Item Value Reference Range Interpretation Comments GLUCOSE RANDOM (BEAKER) (test code = 34 mg/dL 70-105 LL 652) [id number] 10:44:00 Test Item Value Reference Range Interpretation Comments POTASSIUM (BEAKER) (test code = 5.9 meq/L 3.5-5.1 H 379) HEPATIC FUNCTION [id number] 10:44:00 Test Item Value Reference Range Interpretation [...] Previous: 5-20 mg/dLCBC W/PLT COUNT & AUTO [id number] 10:23:00 Test Item Value Reference Range Interpretation [...] (BEAKER) (test code = 2801) BLOOD GAS, [id number] 10:20:00 Test Item Value Reference Range Interpretation [...] (BEAKER) (test code = 1819) 40.0 % [id number] 09:01:00 Test Item Value Reference Range Interpretation Comments POTASSIUM (BEAKER) (test code = 5.9 meq/L 3.5-5.1 H 379) PRN - repeat glucose levels every 1 hour or as specified by insulin titration orders until glucose level is less than 450 mg/[id number] 09:01:00 Test Item Value Reference Range Interpretation Comments MAGNESIUM (BEAKER) (test code = 1.7 mg/dL 1.6-2.6 627) PRN - repeat glucose levels every 1 hour or as specified by insulin titration orders until glucose level is less than 450 mg/[id number] 09:01:00 Test Item Value Reference Range Interpretation Comments PHOSPHORUS (BEAKER) (test code = 4.7 mg/dL 2.3-4.7 604) PRN - repeat glucose levels every 1 hour or as specified by insulin titration orders until glucose level is less than 450 mg/[id number] 09:01:00 Test Item Value Reference Range Interpretation Comments GLUCOSE RANDOM (BEAKER) (test code = 50 mg/dL 70-105 L 652) PRN - repeat glucose levels every 1 hour or as specified by insulin titration orders until glucose level is less than 450 mg/dLCALCIUM, [id number] 08:47:00 Test Item Value Reference Range Interpretation Comments CALCIUM IONIZED (BEAKER) (test 1.24 mmol/L 1.12-1.27 code = 698) PH, BLOOD (BEAKER) (test code = 7.31 1810) [id number] 08:45:00 Test Item Value Reference Range Interpretation Comments PARTIAL THROMBOPLASTIN TIME 53.7 seconds 22.5-36.0 H (BEAKER) (test code = 760) BLOOD GAS, [id number] 08:41:00 Test Item Value Reference Range Interpretation [...] (test code = 1819) 40.0 % PH, [id number] 08:41:00 Test Item Value Reference Range Interpretation Comments PH ARTERIAL (BEAKER) (test code = 383) 7.31 7.35-7.45 L RAD, CHEST, 1 VIEW, NON [id number] 07:31:00Reason for exam:->s/p cardiac surgeryShould this be [...] Xie MDReport VerifiedDate/Time: 01/11/2018 07:31:38 Reading Location: [facility] C013X Ortho Consult Reading Room [...] code = 1819) 40.0 % BASIC METABOLIC [id number] 06:12:00 Test Item Value Reference Range Interpretation [...] NOT APPLICABLE FOR DIALYSIS PATIEN TS. POCT-GLUCOSE [id number] 05:58:00 Test Item Value Reference Range Interpretation Comments POC-GLUCOSE METER 121 mg/dL 70-110 H TESTED AT [facility] 6720 (BEAKER) (test code = [address] [address] [place] [address]) [address] POCT-GLUCOSE [id number] 05:58:00 Test Item Value Reference Range Interpretation Comments POC-GLUCOSE METER 66 mg/dL 70-110 L Will Repea t Test/TESTED (BEAKER) (test code = AT [facility] [address] [place] [address]) [facility] [address] [id number] 05:51:00 Test Item Value Reference Range Interpretation Comments PHOSPHORUS (BEAKER) (test code = 3.5 mg/dL 2.3-4.7 604) [id number] 05:51:00 Test Item Value Reference Range Interpretation Comments MAGNESIUM (BEAKER) (test code = 1.9 mg/dL 1.6-2.6 627) BLOOD GAS, [id number] 05:47:00 Test Item Value Reference Range Interpretation Comments PH ARTERIAL (BEAKER) (test code = 7.32 7.35-7.45 L 383) PCO2 ARTERIAL (BEAKER) (test code 40 mmHg 35-45 = 384) PO2 ARTERIAL (BEAKER) (test code 190 mmHg 80-90 H = 385) O2 SATURATION ARTERIAL ([facility]) 99.2 % 96.0-97.0 H (test code = 386) HCO3 ARTERIAL (AKER) (test code 20 mmol/L 21-29 L = 388) BASE EXCESS ARTERIAL (AKER) -5.6 mmol/L -2.0-3.0 L (test code = 387) PATIENT TEMPERATURE ([facility]) 36.6 C (test code = 1818) FIO2 ([facility]) (test code = 1819) 40.0 % POCT-GLUCOSE [id number] 05:27:00 Test Item Value Reference Range Interpretation Comments POC-GLUCOSE METER 112 mg/dL 70-110 H TESTED AT [place] [address] ([facility]) (test code = [facility] 1538) [address] POCT-GLUCOSE [id number] 05:27:00 Test Item Value Reference Range Interpretation Comments POC-GLUCOSE METER 106 mg/dL 70-110 TESTED AT [place] [address] ([facility]) (test code = [facility] 1538) [address] POCT-GLUCOSE [id number] 05:26:00 Test Item Value Reference Range Interpretation Comments POC-GLUCOSE METER 66 mg/dL 70-110 L TESTED AT [place] [address] ([facility]) (test code = [facility] [address] 1538) LACTIC ACID, ARTERIAL, WHOLE [id number] 04:59:00 Test Item Value Reference Range Interpretation Comments LACTATE BLOOD 12.2 mmol/L 0.5-2.2 H Specimen sligh tly ARTERIAL (2) ([facility]) hemoly zed (test code = 2874) Effective 01/04/2016: Units/Reference Range ChangeNew: 0.5-2.2 mmol/L Previous: 5-20 mg/dLCALCIUM, [id number] 04:57:00 Test Item Value Reference Range Interpretation Comments CALCIUM IONIZED (AKER) (test 1.33 mmol/L 1.12-1.27 H code = 698) PH, BLOOD (AKER) (test code = 7.30 1810) BLOOD GAS, [id number] 04:57:00 Test Item Value Reference Range Interpretation [...] code = 1819) 45.0 % OXYGEN SATURATION, [id number] 04:56:00 Test Item Value Reference Range Interpretation Comments O2 SATURATION (MEASURED) (BEAKER) 83.2 % (test code = 1455) CBC W/PLT COUNT & AUTO [id number] 04:56:00 Test Item Value Reference Range Interpretation [...] PERCENT (BEAKER) (test code = 2801) CALCIUM, [id number] 03:38:00 Test Item Value Reference Range Interpretation Comments CALCIUM IONIZED (BEAKER) (test 1.32 mmol/L 1.12-1.27 H code = 698) PH, BLOOD (BEAKER) (test code = 7.29 1810) BLOOD GAS, [id number] 03:36:00 Test Item Value Reference Range Interpretation [...] 1819) 50.0 % HGB/HCT (H&H) - STAT [id number] 03:36:00 Test Item Value Reference Range Interpretation Comments HEMOGLOBIN (BEAKER) (test code = 12.5 g/dL 13.0-16.8 L 410) HEMATOCRIT (BEAKER) (test code = 37.0 % 40.0-50.0 L 411) OXYGEN SATURATION, [id number] 03:35:00 Test Item Value Reference Range Interpretation Comments O2 SATURATION (MEASURED) (BEAKER) 80.3 % (test code = 1455) GLUCOSE-STAT [id number] 03:34:00 Test Item Value Reference Range Interpretation Comments GLUCOSE RANDOM (BEAKER) (test code = 91 mg/dL 70-110 652) SODIUM NA-STAT [id number] 03:34:00 Test Item Value Reference Range Interpretation Comments SODIUM (BEAKER) (test code = 381) 137 meq/L 135-148 POTASSIUM-STAT [id number] 03:34:00 Test Item Value Reference Range Interpretation Comments POTASSIUM (BEAKER) (test code = 4.6 meq/L 3.6-5.5 379) BLOOD GAS, [id number] 03:01:00 Test Item Value Reference Range Interpretation [...] 1819) 50.0 % HGB/HCT (H&H) - STAT [id number] 03:01:00 Test Item Value Reference Range Interpretation Comments HEMOGLOBIN (BEAKER) (test code = 12.0 g/dL 13.0-16.8 L 410) HEMATOCRIT (BEAKER) (test code = 35.0 % 40.0-50.0 L 411) POTASSIUM-STAT [id number] 03:00:00 Test Item Value Reference Range Interpretation Comments POTASSIUM (BEAKER) (test code = 5.0 meq/L 3.6-5.5 379) GLUCOSE-STAT [id number] 03:00:00 Test Item Value Reference Range Interpretation Comments GLUCOSE RANDOM (BEAKER) (test code 102 mg/dL 70-110 = 652) SODIUM NA-STAT [id number] 03:00:00 Test Item Value Reference Range Interpretation Comments SODIUM (BEAKER) (test code = 381) 140 meq/L 135-148 LACTIC ACID, ARTERIAL, WHOLE [id number] 01:53:00 Test Item Value Reference Range Interpretation Comments LACTATE BLOOD 9.4 mmol/L 0.5-2.2 H Specimen sligh tly ARTERIAL (2) (BEAKER) hemoly zed (test code = 2874) Effective 01/04/2016: Units/Reference Range ChangeNew: 0.5-2.2 mmol/L Previous: 5-20 mg/dLGLUCOSE-STAT [id number] 01:27:00 Test Item Value Reference Range Interpretation Comments GLUCOSE RANDOM (BEAKER) (test code = 99 mg/dL 70-110 652) BLOOD GAS, [id number] 01:27:00 Test Item Value Reference Range Interpretation [...] 1819) 100.0 % HGB/HCT (H&H) - STAT [id number] 01:27:00 Test Item Value Reference Range Interpretation Comments HEMOGLOBIN (BEAKER) (test code = 12.7 g/dL 13.0-16.8 L 410) HEMATOCRIT (BEAKER) (test code = 37.0 % 40.0-50.0 L 411) SODIUM NA-STAT [id number] 01:26:00 Test Item Value Reference Range Interpretation Comments SODIUM (BEAKER) (test code = 381) 141 meq/L 135-148 POTASSIUM-STAT [id number] 01:26:00 Test Item Value Reference Range Interpretation Comments POTASSIUM (BEAKER) (test code = 3.6 meq/L 3.6-5.5 379) [id number] 00:38:00 Test Item Value Reference Range Interpretation Comments PARTIAL THROMBOPLASTIN TIME 47.4 seconds 22.5-36.0 H (BEAKER) (test code = 760) [id number] 00:35:00 Test Item Value Reference Range Interpretation Comments POTASSIUM (BEAKER) 3.5 meq/L 3.5-5.1 Specimen slightly (test code = 379) hemolyzed CALCIUM, [id number] 00:25:00 Test Item Value Reference Range Interpretation [...] = 1414) RAD, CHEST, 1 VIEW, NON [id number] 22:36:00Reason for exam:->s/p BronchoscopyFINAL REPORT CLINICAL INDICATION: Post bronchoscopy Comparison: Same date ts2417 hours There is improved aeration of the right upper lobe. No pneumothorax is present. Hazy opacity in the right upper lobe and in the retrocardiac lower lungs may reflect atelectasis but pneumonitis should be excluded clinically. The cardiomediastinal contours are stable. Support lines are stable. Signed: Kellen Parra MDReport Verified Date/Time: 01/10/2018 22:36:29 Reading Location: [address] Reading Room C METABOLIC [id number] 22:01:00 Test Item Value Reference Range Interpretation [...] S NOT APPLICABLE FOR DIALYSIS PATIEN TS. [id number] 22:00:00 Test Item Value Reference Range Interpretation Comments MAGNESIUM (BEAKER) 2.4 mg/dL 1.6-2.6 Specimen slightly (test code = 627) hemolyzed [id number] 22:00:00 Test Item Value Reference Range Interpretation Comments PHOSPHORUS (BEAKER) 3.2 mg/dL 2.3-4.7 Specimen slightly (test code = 604) hemolyzed LACTIC ACID, ARTERIAL, WHOLE [id number] 21:57:00 Test Item Value Reference Range Interpretation Comments LACTATE BLOOD 10.2 mmol/L 0.5-2.2 H Specimen sligh tly ARTERIAL (2) (BEAKER) hemoly zed (test code = 2874) Effective 01/04/2016: Units/Reference Range ChangeNew: 0.5-2.2 mmol/L Previous: 5-20 mg/dLCBC W/PLT COUNT & AUTO [id number] 21:51:00 Test Item Value Reference Range Interpretation [...] 0-1 PERCENT (BEAKER) (test code = 2801) [id number] 21:49:00 Test Item Value Reference Range Interpretation Comments PARTIAL THROMBOPLASTIN TIME 41.2 seconds 22.5-36.0 H (BEAKER) (test code = 760) PROTHROMBIN [id number] 21:48:00 Test Item Value Reference Range Interpretation Comments PROTIME (BEAKER) (test code = 19.8 seconds 11.7-14.7 H 759) INR (BEAKER) (test code = 370) 1.7 <=5.9 RECOMMENDED COUMADIN/WARFARIN INR THERAPY RANGESSTANDARD DOSE: 2.0 - 3.0 Includes: PROPHYLAXIS forvenous thrombosis, systemic embolization; TREATMENT for venous thrombosis and/or pulmonary embolus.HIGH RISK: Target INR is 2.5-3.5 for patients with mechanical heart valves.[id number] 21:48:00 Test Item Value Reference Range Interpretation Comments FIBRINOGEN LEVEL (BEAKER) (test 221 mg/dl 225-434 L code = 658) CALCIUM, [id number] 21:33:00 Test Item Value Reference Range Interpretation Comments CALCIUM IONIZED (BEAKER) (test 1.54 mmol/L 1.12-1.27 H code = 698) PH, BLOOD (BEAKER) (test code = 7.33 1810) OXYGEN SATURATION, [id number] 21:33:00 Test Item Value Reference Range Interpretation Comments O2 SATURATION (MEASURED) (BEAKER) 67.1 % (test code = 1455) GLUCOSE-STAT [id number] 21:32:00 Test Item Value Reference Range Interpretation Comments GLUCOSE RANDOM (BEAKER) (test code = 98 mg/dL 70-110 652) SODIUM NA-STAT [id number] 21:32:00 Test Item Value Reference Range Interpretation Comments SODIUM (BEAKER) (test code = 381) 139 meq/L 135-148 POTASSIUM-STAT [id number] 21:32:00 Test Item Value Reference Range Interpretation Comments POTASSIUM (BEAKER) (test code = 3.6 meq/L 3.6-5.5 379) BLOOD GAS, [id number] 21:32:00 Test Item Value Reference Range Interpretation [...] 1819) 60.0 % HGB/HCT (H&H) - STAT [id number] 21:32:00 Test Item Value Reference Range Interpretation Comments HEMOGLOBIN (BEAKER) (test code = 8.2 g/dL 13.0-16.8 L 410) HEMATOCRIT (BEAKER) (test code = 24.0 % 40.0-50.0 L 411) RAD, CHEST, 1 VIEW, NON [id number] 21:32:00Reason for exam:->s/p cardiac surgeryShould this be [...] the level of the clavicles. Right IJ Brush-Moni catheter terminatesin the distal right pulmonary artery. The soft tissues and osseous structures are intact. IMPRESSION: Postoperative changes with right upper lobe collapse, likely secondary to mucous plugging. Supporting lines and tubes as described above. Note position of the Brush-Moni catheter. Signed: Moiz Musaort Verified Date/Time: 01/10/2018 21:32:31 Reading Location: [facility] B1 C013W Consult Reading Room THROMBOELASTOGRAPH [...] 55.0-65.0 L (test code = 1413) CALCIUM, [id number] 20:42:00 Test Item Value Reference Range Interpretation Comments CALCIUM IONIZED (BEAKER) (test 1.41 mmol/L 1.12-1.27 H code = 698) PH, BLOOD (BEAKER) (test code = 7.41 1810) SODIUM NA-STAT [id number] 20:41:00 Test Item Value Reference Range Interpretation Comments SODIUM (BEAKER) (test code = 381) 138 meq/L 135-148 POTASSIUM-STAT [id number] 20:41:00 Test Item Value Reference Range Interpretation Comments POTASSIUM (BEAKER) (test code = 3.7 meq/L 3.6-5.5 379) BLOOD GAS, [id number] 20:41:00 Test Item Value Reference Range Interpretation [...] (test code = 1819) 100.0 % GLUCOSE-STAT [id number] 20:41:00 Test Item Value Reference Range Interpretation Comments GLUCOSE RANDOM (BEAKER) (test code 120 mg/dL 70-110 H = 652) HGB/HCT (H&H) - STAT [id number] 20:41:00 Test Item Value Reference Range Interpretation Comments HEMOGLOBIN (BEAKER) (test code = 7.8 g/dL 13.0-16.8 L 410) HEMATOCRIT (BEAKER) (test code = 23.0 % 40.0-50.0 L 411) [id number] 20:23:00 Test Item Value Reference Range Interpretation Comments FIBRINOGEN LEVEL (BEAKER) (test 239 mg/dl 225-434 code = 658) [id number] 20:23:00 Test Item Value Reference Range Interpretation Comments PARTIAL THROMBOPLASTIN TIME 38.6 seconds 22.5-36.0 H (BEAKER) (test code = 760) PROTHROMBIN TIME/[id number] 20:22:00 Test Item Value Reference Range Interpretation Comments PROTIME (BEAKER) (test code = 21.6 seconds 11.7-14.7 H 759) INR (BEAKER) (test code = 370) 1.9 <=5.9 RECOMMENDED COUMADIN/WARFARIN INR THERAPY RANGESSTANDARD DOSE: 2.0 - 3.0 Includes: PROPHYLAXIS forvenous thrombosis, systemic embolization; TREATMENT for venous thrombosis and/or pulmonary embolus.HIGH RISK: Target INR is 2.5-3.5 for patients with mechanical heart valves.[id number] 20:16:00 Test Item Value Reference Range Interpretation Comments ACTIVATED CLOTTING TIME 114 sec TEST ED AT [place] [address] ([facility]) (test code = [place] 441) [address] [id number] 20:16:00 Test Item Value Reference Range Interpretation Comments ACTIVATED CLOTTING TIME 499 sec TEST ED AT [place] [address] ([facility]) (test code = [place] [facility] 441) [id number] 20:16:00 Test Item Value Reference Range Interpretation Comments ACTIVATED CLOTTING TIME 483 sec TEST ED AT [place] [address] ([facility]) (test code = [place] 441) [id number] 20:16:00 Test Item Value Reference Range Interpretation Comments ACTIVATED CLOTTING TIME 538 sec TEST ED AT [place] [address] ([facility]) (test code = [place] 441) [id number] 20:16:00 Test Item Value Reference Range Interpretation Comments ACTIVATED CLOTTING TIME 615 sec TEST ED AT [place] [address] ([facility]) (test code = [place] 441) [id number] 20:16:00 Test Item Value Reference Range Interpretation Comments ACTIVATED CLOTTING TIME 692 sec TEST ED AT [place] [address] ([facility]) (test code = [place] 441) [address] [id number] 20:16:00 Test Item Value Reference Range Interpretation Comments ACTIVATED CLOTTING TIME 428 sec TEST ED AT [place] [address] ([facility]) (test code = [place] 441) [address] [id number] 20:16:00 Test Item Value Reference Range Interpretation Comments ACTIVATED CLOTTING TIME 373 sec TEST ED AT [place] [address] ([facility]) (test code = [place] 441) [address] [id number] 20:16:00 Test Item Value Reference Range Interpretation Comments ACTIVATED CLOTTING TIME 455 sec TEST ED AT [place] [address] ([facility]) (test code = [place] 441) [id number] 20:16:00 Test Item Value Reference Range Interpretation Comments ACTIVATED CLOTTING TIME 494 sec TEST ED AT [place] [address] ([facility]) (test code = [place] 441) [address] [id number] 20:16:00 Test Item Value Reference Range Interpretation Comments ACTIVATED CLOTTING TIME 527 sec TEST ED AT [place] [address] ([facility]) (test code = [place] 441) [address] [id number] 20:16:00 Test Item Value Reference Range Interpretation Comments ACTIVATED CLOTTING TIME 610 sec TEST ED AT [place] [address] ([facility]) (test code = [place] 441) [address] [id number] 20:16:00 Test Item Value Reference Range Interpretation Comments ACTIVATED CLOTTING TIME 576 sec TEST ED AT [place] [address] ([facility]) (test code = [place] 441) [address] [id number] 20:16:00 Test Item Value Reference Range Interpretation Comments ACTIVATED CLOTTING TIME 384 sec TEST ED AT [place] [address] ([facility]) (test code = [place] 441) [address] PLATELET [id number] 20:08:00 Test Item Value Reference Range Interpretation Comments PLATELET COUNT ([facility]) (test code 47 K/CU MM 150-450 L [...] 0.0-5.0 (BEAKER) (test code = 1414) CALCIUM, [id number] 19:59:00 Test Item Value Reference Range Interpretation Comments CALCIUM IONIZED (BEAKER) (test 1.39 mmol/L 1.12-1.27 H code = 698) PH, BLOOD (BEAKER) (test code = 7.37 1810) BLOOD GAS, [id number] 19:58:00 Test Item Value Reference Range Interpretation [...] (test code = 1819) 100.0 % GLUCOSE-STAT [id number] 19:58:00 Test Item Value Reference Range Interpretation Comments GLUCOSE RANDOM (BEAKER) (test code 143 mg/dL 70-110 H = 652) HGB/HCT (H&H) - STAT [id number] 19:58:00 Test Item Value Reference Range Interpretation Comments HEMOGLOBIN (BEAKER) (test code = 8.7 g/dL 13.0-16.8 L 410) HEMATOCRIT (BEAKER) (test code = 26.0 % 40.0-50.0 L 411) SODIUM NA-STAT [id number] 19:57:00 Test Item Value Reference Range Interpretation Comments SODIUM (BEAKER) (test code = 381) 140 meq/L 135-148 POTASSIUM-STAT [id number] 19:57:00 Test Item Value Reference Range Interpretation Comments POTASSIUM (BEAKER) (test code = 3.9 meq/L 3.6-5.5 379) [id number] 19:29:00 Test Item Value Reference Range Interpretation Comments PARTIAL THROMBOPLASTIN TIME > seconds 22.5-36.0 HH (BEAKER) (test code = 760) [id number] 19:16:00 Test Item Value Reference Range Interpretation Comments FIBRINOGEN LEVEL (BEAKER) (test 271 mg/dl 225-434 code = 658) PROTHROMBIN [id number] 19:15:00 Test Item Value Reference Range Interpretation Comments PROTIME (BEAKER) (test code = 21.3 seconds 11.7-14.7 H 759) INR (BEAKER) (test code = 370) 1.8 <=5.9 RECOMMENDED COUMADIN/WARFARIN INR THERAPY RANGESSTANDARD DOSE: 2.0 - 3.0 Includes: PROPHYLAXIS forvenous thrombosis, systemic embolization; TREATMENT for venous thrombosis and/or pulmonary embolus.HIGH RISK: Target INR is 2.5-3.5 for patients with mechanical heart valves.PLATELET [id number] 19:06:00 Test Item Value Reference Range Interpretation Comments PLATELET COUNT (BEAKER) (test code 54 K/CU MM 150-450 L = 756) BLOOD GAS, [id number] 18:49:00 Test Item Value Reference Range Interpretation [...] 1819) 100.0 % HGB/HCT (H&H) - STAT [id number] 18:44:00 Test Item Value Reference Range Interpretation Comments HEMOGLOBIN (BEAKER) (test code = 10.1 g/dL 13.0-16.8 L 410) HEMATOCRIT (BEAKER) (test code = 30.0 % 40.0-50.0 L 411) SODIUM NA-STAT [id number] 18:43:00 Test Item Value Reference Range Interpretation Comments SODIUM (BEAKER) (test code = 381) 137 meq/L 135-148 POTASSIUM-STAT [id number] 18:43:00 Test Item Value Reference Range Interpretation Comments POTASSIUM (BEAKER) (test code = 5.0 meq/L 3.6-5.5 379) GLUCOSE-STAT [id number] 18:43:00 Test Item Value Reference Range Interpretation Comments GLUCOSE RANDOM (BEAKER) (test code 187 mg/dL 70-110 H = 652) SODIUM NA-STAT [id number] 18:22:00 Test Item Value Reference Range Interpretation Comments SODIUM (BEAKER) (test code = 381) 140 meq/L 135-148 POTASSIUM-STAT [id number] 18:22:00 Test Item Value Reference Range Interpretation Comments POTASSIUM (BEAKER) (test code = 4.7 meq/L 3.6-5.5 379) BLOOD GAS, [id number] 18:22:00 Test Item Value Reference Range Interpretation [...] (test code = 1819) 60.0 % GLUCOSE-STAT [id number] 18:22:00 Test Item Value Reference Range Interpretation Comments GLUCOSE RANDOM (BEAKER) (test code 209 mg/dL 70-110 H = 652) HGB/HCT (H&H) - STAT [id number] 18:22:00 Test Item Value Reference Range Interpretation Comments HEMOGLOBIN (BEAKER) (test code = 10.2 g/dL 13.0-16.8 L 410) HEMATOCRIT (BEAKER) (test code = 30.0 % 40.0-50.0 L 411) BLOOD GAS, [id number] 17:57:00 Test Item Value Reference Range Interpretation [...] (test code = 1819) 65.0 % GLUCOSE-STAT [id number] 17:57:00 Test Item Value Reference Range Interpretation Comments GLUCOSE RANDOM (BEAKER) (test code 198 mg/dL 70-110 H = 652) HGB/HCT (H&H) - STAT [id number] 17:57:00 Test Item Value Reference Range Interpretation Comments HEMOGLOBIN (BEAKER) (test code = 10.3 g/dL 13.0-16.8 L 410) HEMATOCRIT (BEAKER) (test code = 30.0 % 40.0-50.0 L 411) SODIUM NA-STAT [id number] 17:56:00 Test Item Value Reference Range Interpretation Comments SODIUM (BEAKER) (test code = 381) 138 meq/L 135-148 POTASSIUM-STAT [id number] 17:56:00 Test Item Value Reference Range Interpretation Comments POTASSIUM (BEAKER) (test code = 4.7 meq/L 3.6-5.5 379) BLOOD GAS, [id number] 17:28:00 Test Item Value Reference Range Interpretation [...] (test code = 1819) 65.0 % GLUCOSE-STAT [id number] 17:28:00 Test Item Value Reference Range Interpretation Comments GLUCOSE RANDOM (BEAKER) (test code 223 mg/dL 70-110 H = 652) HGB/HCT (H&H) - STAT [id number] 17:28:00 Test Item Value Reference Range Interpretation Comments HEMOGLOBIN (BEAKER) (test code = 10.1 g/dL 13.0-16.8 L 410) HEMATOCRIT (BEAKER) (test code = 30.0 % 40.0-50.0 L 411) SODIUM NA-STAT [id number] 17:27:00 Test Item Value Reference Range Interpretation Comments SODIUM (BEAKER) (test code = 381) 140 meq/L 135-148 POTASSIUM-STAT [id number] 17:27:00 Test Item Value Reference Range Interpretation [...] code = 1414) HGB/HCT (H&H) - STAT [id number] 17:01:00 Test Item Value Reference Range Interpretation Comments HEMOGLOBIN (BEAKER) (test code = 10.1 g/dL 13.0-16.8 L 410) HEMATOCRIT (BEAKER) (test code = 30.0 % 40.0-50.0 L 411) BLOOD GAS, [id number] 17:00:00 Test Item Value Reference Range Interpretation [...] (test code = 1819) 65.0 % GLUCOSE-STAT [id number] 17:00:00 Test Item Value Reference Range Interpretation Comments GLUCOSE RANDOM (BEAKER) (test code 243 mg/dL 70-110 H = 652) SODIUM NA-STAT [id number] 16:59:00 Test Item Value Reference Range Interpretation Comments SODIUM (BEAKER) (test code = 381) 139 meq/L 135-148 POTASSIUM-STAT [id number] 16:59:00 Test Item Value Reference Range Interpretation Comments POTASSIUM (BEAKER) (test code = 4.6 meq/L 3.6-5.5 379) [id number] 16:47:00 Test Item Value Reference Range Interpretation Comments PARTIAL THROMBOPLASTIN TIME > seconds 22.5-36.0 HH (BEAKER) (test code = 760) BLOOD GAS, [id number] 16:18:00 Test Item Value Reference Range Interpretation [...] (test code = 1819) 65.0 % GLUCOSE-STAT [id number] 16:18:00 Test Item Value Reference Range Interpretation Comments GLUCOSE RANDOM (BEAKER) (test code 279 mg/dL 70-110 H = 652) HGB/HCT (H&H) - STAT [id number] 16:18:00 Test Item Value Reference Range Interpretation Comments HEMOGLOBIN (BEAKER) (test code = 7.0 g/dL 13.0-16.8 L 410) HEMATOCRIT (BEAKER) (test code = 21.0 % 40.0-50.0 L 411) SODIUM NA-STAT [id number] 16:17:00 Test Item Value Reference Range Interpretation Comments SODIUM (BEAKER) (test code = 381) 137 meq/L 135-148 POTASSIUM-STAT [id number] 16:17:00 Test Item Value Reference Range Interpretation Comments POTASSIUM (BEAKER) (test code = 4.6 meq/L 3.6-5.5 379) [id number] 16:15:00 Test Item Value Reference Range Interpretation Comments FIBRINOGEN LEVEL (BEAKER) (test 255 mg/dl 225-434 code = 658) PROTHROMBIN [id number] 16:14:00 Test Item Value Reference Range Interpretation Comments PROTIME (BEAKER) (test code = 20.2 seconds 11.7-14.7 H 759) INR (BEAKER) (test code = 370) 1.7 <=5.9 RECOMMENDED COUMADIN/WARFARIN INR THERAPY RANGESSTANDARD DOSE: 2.0 - 3.0 Includes: PROPHYLAXIS forvenous thrombosis, systemic embolization; TREATMENT for venous thrombosis and/or pulmonary embolus.HIGH RISK: Target INR is 2.5-3.5 for patients with mechanical heart valves.PLATELET [id number] 16:02:00 Test Item Value Reference Range Interpretation Comments PLATELET COUNT (BEAKER) (test code 57 K/CU MM 150-450 L = 756) CALCIUM, [id number] 15:51:00 Test Item Value Reference Range Interpretation Comments CALCIUM IONIZED (BEAKER) (test 0.82 mmol/L 1.12-1.27 L code = 698) PH, BLOOD (BEAKER) (test code = 7.45 1810) BLOOD GAS, [id number] 15:51:00 Test Item Value Reference Range Interpretation [...] (test code = 1819) 100.0 % GLUCOSE-STAT [id number] 15:51:00 Test Item Value Reference Range Interpretation Comments GLUCOSE RANDOM (BEAKER) (test code 190 mg/dL 70-110 H = 652) HGB/HCT (H&H) - STAT [id number] 15:51:00 Test Item Value Reference Range Interpretation Comments HEMOGLOBIN (BEAKER) (test code = 7.6 g/dL 13.0-16.8 L 410) HEMATOCRIT (BEAKER) (test code = 22.0 % 40.0-50.0 L 411) POTASSIUM-STAT [id number] 15:51:00 Test Item Value Reference Range Interpretation Comments POTASSIUM (BEAKER) (test code = 5.6 meq/L 3.6-5.5 H 379) SODIUM NA-STAT [id number] 15:50:00 Test Item Value Reference Range Interpretation Comments SODIUM (BEAKER) (test code = 381) 139 meq/L 135-148 BLOOD GAS, [id number] 15:43:00 Test Item Value Reference Range Interpretation [...] (test code = 1819) 75.0 % GLUCOSE-STAT [id number] 15:43:00 Test Item Value Reference Range Interpretation Comments GLUCOSE RANDOM (BEAKER) (test code 189 mg/dL 70-110 H = 652) HGB/HCT (H&H) - STAT [id number] 15:43:00 Test Item Value Reference Range Interpretation Comments HEMOGLOBIN (BEAKER) (test code = 8.0 g/dL 13.0-16.8 L 410) HEMATOCRIT (BEAKER) (test code = 24.0 % 40.0-50.0 L 411) POTASSIUM-STAT [id number] 15:43:00 Test Item Value Reference Range Interpretation Comments POTASSIUM (BEAKER) (test code = 5.7 meq/L 3.6-5.5 H 379) SODIUM NA-STAT [id number] 15:42:00 Test Item Value Reference Range Interpretation Comments SODIUM (BEAKER) (test code = 381) 136 meq/L 135-148 SODIUM NA-STAT [id number] 15:06:00 Test Item Value Reference Range Interpretation Comments SODIUM (BEAKER) (test code = 381) 139 meq/L 135-148 BLOOD GAS, [id number] 15:06:00 Test Item Value Reference Range Interpretation [...] (test code = 1819) 60.0 % POTASSIUM-STAT [id number] 15:06:00 Test Item Value Reference Range Interpretation Comments POTASSIUM (BEAKER) (test code = 5.8 meq/L 3.6-5.5 H 379) GLUCOSE-STAT [id number] 15:06:00 Test Item Value Reference Range Interpretation Comments GLUCOSE RANDOM (BEAKER) (test code 192 mg/dL 70-110 H = 652) HGB/HCT (H&H) - STAT [id number] 15:06:00 Test Item Value Reference Range Interpretation Comments HEMOGLOBIN (BEAKER) (test code = 8.2 g/dL 13.0-16.8 L 410) HEMATOCRIT (BEAKER) (test code = 24.0 % 40.0-50.0 L 411) POTASSIUM-STAT [id number] 14:41:00 Test Item Value Reference Range Interpretation Comments POTASSIUM (BEAKER) (test code = 5.2 meq/L 3.6-5.5 379) BLOOD GAS, [id number] 14:41:00 Test Item Value Reference Range Interpretation [...] code = 1819) 60.0 % SODIUM NA-STAT [id number] 14:41:00 Test Item Value Reference Range Interpretation Comments SODIUM (BEAKER) (test code = 381) 134 meq/L 135-148 L GLUCOSE-STAT [id number] 14:41:00 Test Item Value Reference Range Interpretation Comments GLUCOSE RANDOM (BEAKER) (test code 195 mg/dL 70-110 H = 652) HGB/HCT (H&H) - STAT [id number] 14:41:00 Test Item Value Reference Range Interpretation Comments HEMOGLOBIN (BEAKER) (test code = 8.2 g/dL 13.0-16.8 L 410) HEMATOCRIT (BEAKER) (test code = 24.0 % 40.0-50.0 L 411) BLOOD GAS, [id number] 14:10:00 Test Item Value Reference Range Interpretation [...] (test code = 1819) 60.0 % GLUCOSE-STAT [id number] 14:10:00 Test Item Value Reference Range Interpretation Comments GLUCOSE RANDOM (BEAKER) (test code 177 mg/dL 70-110 H = 652) HGB/HCT (H&H) - STAT [id number] 14:10:00 Test Item Value Reference Range Interpretation Comments HEMOGLOBIN (BEAKER) (test code = 8.5 g/dL 13.0-16.8 L 410) HEMATOCRIT (BEAKER) (test code = 25.0 % 40.0-50.0 L 411) SODIUM NA-STAT [id number] 14:09:00 Test Item Value Reference Range Interpretation Comments SODIUM (BEAKER) (test code = 381) 136 meq/L 135-148 POTASSIUM-STAT [id number] 14:09:00 Test Item Value Reference Range Interpretation Comments POTASSIUM (BEAKER) (test code = 5.0 meq/L 3.6-5.5 379) GLUCOSE-STAT [id number] 13:39:00 Test Item Value Reference Range Interpretation Comments GLUCOSE RANDOM (BEAKER) (test code 179 mg/dL 70-110 H = 652) HGB/HCT (H&H) - STAT [id number] 13:39:00 Test Item Value Reference Range Interpretation Comments HEMOGLOBIN (BEAKER) (test code = 8.1 g/dL 13.0-16.8 L 410) HEMATOCRIT (BEAKER) (test code = 24.0 % 40.0-50.0 L 411) SODIUM NA-STAT [id number] 13:39:00 Test Item Value Reference Range Interpretation Comments SODIUM (BEAKER) (test code = 381) 136 meq/L 135-148 POTASSIUM-STAT [id number] 13:39:00 Test Item Value Reference Range Interpretation Comments POTASSIUM (BEAKER) (test code = 5.0 meq/L 3.6-5.5 379) BLOOD GAS, [id number] 13:39:00 Test Item Value Reference Range Interpretation [...] (BEAKER) (test code = 1819) 60.0 % CALCIUM, [id number] 12:31:00 Test Item Value Reference Range Interpretation Comments CALCIUM IONIZED (BEAKER) (test 1.09 mmol/L 1.12-1.27 L code = 698) PH, BLOOD (BEAKER) (test code = 7.45 1810) GLUCOSE-STAT [id number] 12:30:00 Test Item Value Reference Range Interpretation Comments GLUCOSE RANDOM (BEAKER) (test code = 93 mg/dL 70-110 652) SODIUM NA-STAT [id number] 12:30:00 Test Item Value Reference Range Interpretation Comments SODIUM (BEAKER) (test code = 381) 140 meq/L 135-148 POTASSIUM-STAT [id number] 12:30:00 Test Item Value Reference Range Interpretation Comments POTASSIUM (BEAKER) (test code = 3.9 meq/L 3.6-5.5 379) BLOOD GAS, [id number] 12:30:00 Test Item Value Reference Range Interpretation [...] 1819) 100.0 % HGB/HCT (H&H) - STAT [id number] 12:30:00 Test Item Value Reference Range Interpretation Comments HEMOGLOBIN (BEAKER) (test code = 9.3 g/dL 13.0-16.8 L 410) HEMATOCRIT (BEAKER) (test code = 27.0 % 40.0-50.0 L 411) HEMOGLOBIN [id number] 10:02:00 Test Item Value Reference Range Interpretation Comments HEMOGLOBIN A1C (BEAKER) (test code = 4.4 % 4.3-6.1 368) POCT-GLUCOSE [id number] 09:52:00 Test Item Value Reference Range Interpretation Comments POC-GLUCOSE METER 115 mg/dL 70-110 H TESTED AT [facility] 6720 (BEAKER) (test code = [place] 1538) [address] PROTHROMBIN [id number] 02:41:00 Test Item Value Reference Range Interpretation Comments PROTIME (BEAKER) (test code = 14.9 seconds 11.7-14.7 H 759) INR (BEAKER) (test code = 370) 1.2 <=5.9 RECOMMENDED COUMADIN/WARFARIN INR THERAPY RANGESSTANDARD DOSE: 2.0 - 3.0 Includes: PROPHYLAXIS forvenous thrombosis, systemic embolization; TREATMENT for venous thrombosis and/or pulmonary embolus.HIGH RISK: Target INR is 2.5-3.5 for patients with mechanical heart valves.BASIC METABOLIC [id number] 00:29:00 Test Item Value Reference Range Interpretation [...] S NOT APPLICABLE FOR DIALYSIS PATIEN TS. [id number] 00:22:00 Test Item Value Reference Range Interpretation Comments MAGNESIUM (BEAKER) 2.5 mg/dL 1.6-2.6 Specimen slightly (test code = 627) hemolyzed [id number] 00:14:00 Test Item Value Reference Range Interpretation Comments PARTIAL THROMBOPLASTIN TIME 38.6 seconds 22.5-36.0 H (BEAKER) (test code = 760) CBC W/PLT COUNT & AUTO [id number] 00:07:00 Test Item Value Reference Range Interpretation [...] 0-1 PERCENT (BEAKER) (test code = 2801) [id number] 17:03:00 Test Item Value Reference Range Interpretation Comments THYROID STIMULATING HORMONE 1.30 uIU/mL 0.35-4.94 (BEAKER) (test code = 772) HEPATIC FUNCTION [id number] 16:43:00 Test Item Value Reference Range Interpretation [...] 69 U/L 6-55 H 347) BASIC METABOLIC [id number] 15:47:00 Test Item Value Reference Range Interpretation [...] I S NOT APPLICABLE FOR DIALYSIS PATIEN [id number] 14:57:00 Test Item Value Reference Range Interpretation Comments PARTIAL THROMBOPLASTIN TIME 82.9 seconds 22.5-36.0 H (BEAKER) (test code = 760) CBC W/PLT COUNT & AUTO [id number] 14:48:00 Test Item Value Reference Range Interpretation [...] PERCENT (AKER) (test code = 2801) POCT-GLUCOSE [id number] 11:13:00 Test Item Value Reference Range Interpretation Comments POC-GLUCOSE METER 207 mg/dL 70-110 H TESTED AT [place] [address] ([facility]) (test code = [place] 1538) [address] POCT-GLUCOSE [id number] 08:08:00 Test Item Value Reference Range Interpretation Comments POC-GLUCOSE METER 124 mg/dL 70-110 H TESTED AT [place] [address] ([facility]) (test code = [place] [facility] 1538) [address] [id number] 06:51:00 Test Item Value Reference Range Interpretation Comments PARTIAL THROMBOPLASTIN TIME 54.6 seconds 22.5-36.0 H ([facility]) (test code = 760) HEPATITIS B SURFACE [id number] 00:28:00 Test Item Value Reference Range Interpretation Comments HEPATITIS B SURFACE ANTIGEN (2) Nonreactive Nonreactive (BEAKER) (test code = 2585) [id number] 00:06:00 Test Item Value Reference Range Interpretation Comments PHOSPHORUS (BEAKER) (test code = 3.2 mg/dL 2.3-4.7 604) [id number] 00:03:00 Test Item Value Reference Range Interpretation Comments PARTIAL THROMBOPLASTIN TIME 36.0 seconds 22.5-36.0 (BEAKER) (test code = 760) CBC W/PLT COUNT & AUTO [id number] 23:45:00 Test Item Value Reference Range Interpretation [...] PERCENT (BEAKER) (test code = 2801) POCT-GLUCOSE [id number] 17:39:00 Test Item Value Reference Range Interpretation Comments POC-GLUCOSE METER 116 mg/dL 70-110 H TESTED AT [place] [address] ([facility]) (test code = [place] [facility] 1538) [address] [id number] 15:35:00 Test Item Value Reference Range Interpretation Comments THYROID STIMULATING HORMONE 1.39 uIU/mL 0.35-4.94 ([facility]) (test code = 772) [id number] 15:06:00 Test Item Value Reference Range Interpretation Comments PARTIAL THROMBOPLASTIN TIME 31.0 seconds 22.5-36.0 ([facility]) (test code = 760) Prior to initiating heparinPROTHROMBIN TIME/[id number] 15:05:00 Test Item Value Reference Range Interpretation Comments PROTIME ([facility]) (test code = 14.4 seconds 11.7-14.7 759) INR ([facility]) (test code = 370) 1.1 <=5.9 RECOMMENDED COUMADIN/WARFARIN INR THERAPY RANGESSTANDARD DOSE: 2.0 - 3.0 Includes: PROPHYLAXIS forvenous thrombosis, systemic embolization; TREATMENT for venous thrombosis and/or pulmonary embolus.HIGH RISK: Target INR is 2.5-3.5 for patients with mechanical heart valves.PLATELET [id number] 14:52:00 Test Item Value Reference Range Interpretation Comments PLATELET COUNT ([facility]) (test 109 K/CU MM 150-450 L code = 756) POCT-GLUCOSE [id number] 12:00:00 Test Item Value Reference Range Interpretation Comments POC-GLUCOSE METER 186 mg/dL 70-110 H TESTED AT [place] [address] ([facility]) (test code = [place] [facility] 1538) [address] RAD, CHEST, 1 VIEW, NON [id number] 11:43:00Reason for exam:->SOB, known severe MRShould this be performed at the bedside?->YesFINAL REPORT Chest one view AP 01/08/2018 11:42 AM CLINICAL INDICATION: SOB, kno wn severe MR COMPARISON: 12/02/2017 IMPRESSION: Cardiomediastinal contours are stable. There is mild pulmonary edema. There are trace bilateral pleural effusions. Signed: Yevgeniy Anderson Verified Date/Time: 01/08/2018 11:43:52 Reading Location: [facility] Radiology Reading Room Electronic ally signed by: YEVGENIY ANDERSON M.D. on 01/08/2018 11:43 AMRAPID CK-MB 2017-12-02 10:04:00 Test Item Value Reference Range Interpretation Comments RAPID CKMB (BEAKER) (test code = 1.5 ng/mL 0.0-4.3 1482) RAPID TROPONIN [id number] 10:04:00 Test Item Value Reference Range Interpretation Comments RAPID TROPONIN I (BEAKER) (test code < ng/mL <0.05 = 1483) RAD, CHEST, 2 [id number] 10:00:00Reason for exam:->Chest PainFINAL REPORT Chest two views Discussion: Heart size upper limits of normal. Bilateral interstitial edema with small bilateral effusions. No pneumothorax. Bones and soft tissues unremarkable. Signed: Rhea Colindres Verified Date/Time: 12/02/2017 10:00:39 Reading Location:[facility] Radiology Reading Room B-TYPE NATRIURETIC FACTOR (BNP)2017-12-02 09:56:00 Test Item Value Reference Range Interpretation Comments B-TYPE NATRIURETIC PEPTIDE 1990 pg/mL 0-100 H (BEAKER) (test code = 700) BASIC METABOLIC [id number] 09:52:00 Test Item Value Reference Range Interpretation [...] S NOT APPLICABLE FOR DIALYSIS PATIEN TS. [id number] 09:51:00 Test Item Value Reference Range Interpretation Comments MAGNESIUM (BEAKER) (test code = 1.7 mg/dL 1.5-3.0 627) CBC W/PLT COUNT & AUTO [id number] 09:50:00 Test Item Value Reference Range Interpretation [...] (BEAKER) (test code = 417) CD4/CD8 Ratio [id number] 08:04:00 Test Item Value Reference Range Interpretation Comments Absolute CD 4 [place] (test code 188 /uL 359-1519 L = 672158) % CD 4 Pos. Lymph. (test code = 37.6 % 30.8-58.5 N 006943) Abs. CD 8 Suppressor (test code 183 /uL 109-897 N = 783034) % CD 8 Pos. Lymph. (test code = 36.6 % 12.0-35.5 H 293453) CD4/CD8 Ratio (test code = 1.03 0.92-3.72 N 112891) WBC (test code = 543735) 5.0 x10E3/uL 3.4-10.8 N RBC (test code = 380816) 3.00 x10E6/uL 4.14-5.80 L Hemoglobin (test code = 724903) 9.6 g/dL 13.0-17.7 L Hematocrit (test code = 435397) 27.6 % 37.5-51.0 L MCV (test code = 008639) 92 fL 79-97 N MCH (test code = 598174) 32.0 pg 26.6-33.0 N MCHC (test code = 479941) 34.8 g/dL 31.5-35.7 N RDW (test code = 109860) 15.5 % 12.3-15.4 H Platelets (test code = 353049) 113 x10E3/uL 150-379 L Neutrophils (test code = 84 % Not Estab. N 731509) Lymphs (test code = 486126) 9 % Not Estab. N Monocytes (test code = 402026) 6 % Not Estab. N Eos (test code = 080992) 1 % Not Estab. N Basos (test code = 352251) 0 % Not Estab. N Neutrophils (Absolute) (test 4.2 x10E3/uL 1.4-7.0 N code = 969936) Lymphs (Absolute) (test code = 0.5 x10E3/uL 0.7-3.1 L 992217) Monocytes(Absolute) (test code 0.3 x10E3/uL 0.1-0.9 N = 454125) Eos (Absolute) (test code = 0.0 x10E3/uL 0.0-0.4 N 248692) Baso (Absolute) (test code = 0.0 x10E3/uL 0.0-0.2 N 573830) Immature Granulocytes (test 0 % Not Estab. N code = 623116) Immature Grans (Abs) (test code 0.0 x10E3/uL 0.0-0.1 N = 158359) Culture, Blood [id number] 08:42:00Specimen: BloodCollected: 11/19/2017 00:21 Status: Final Last Updated: 11/24/2017 08:42 Culture Result (Final) (Final) No Growth After 5 DaysCulture, Blood [id number] 08:42:00 Specimen: BloodCollected: 11/18/2017 20:30 Status: Final Last Updated: 11/24/2017 08:42 Culture Result (Final) (Final) No Growth After 5 DaysPOC Glucose, [id number] 11:51:00 Test Item Value Reference Range Interpretation Comments POC Glucose (test 148 mg/dL 70-115 H Notify RN or MDIf you code = POCGLUC) consider you r patient critically ill, the [facility] Accu-Chek InformII metershould not be used for Glucose determinations. Draw a venous Glucose and send to the Main Lab for Analysis. CK [id number] 07:42:00 Test Item Value Reference Range Interpretation Comments CK (test code = CK) na U/L 39-308 N CKMB (test code = CKMB) 4.0 ng/mL 0.0-4.9 N CKMB% (test code = CKMBP) 0.0 % 0.0-3.4 N [id number]-[id number] 07:39:00 Test Item Value Reference Range Interpretation Comments NT ProBnp (test code = PBNP) >36752 pg/mL 0-124 H Troponin [id number] 07:18:00 Test Item Value Reference Range Interpretation Comments Troponin T (test code = MADHAV) 0.103 ng/mL 0.000-0.090 H Lactate [id number] 07:18:00 Test Item Value Reference Range Interpretation Comments LDH (test code = LDH) 271 U/L 135-225 H POC Glucose, [id number] 06:50:00 Test Item Value Reference Range Interpretation Comments POC Glucose (test 154 mg/dL 70-115 H Notify RN or MDIf you code = POCGLUC) consider you r patient critically ill, the [facility] Accu-Chek InformII metershould not be used for Glucose determinations. Draw a venous Glucose and send to the Main Lab for Analysis. CK [id number] 01:08:00 Test Item Value Reference Range Interpretation Comments CK (test code = CK) na U/L 39-308 N CKMB (test code = CKMB) 3.6 ng/mL 0.0-4.9 N CKMB% (test code = CKMBP) 0.0 % 0.0-3.4 N Troponin [id number] 01:08:00 Test Item Value Reference Range Interpretation Comments Troponin T (test code = MADHAV) 0.106 ng/mL 0.000-0.090 H XR CHEST 1 [id number] 21:02:01CLINICAL INFORMATION: Vascular congestion.Dictation Location: R 16Comparison: 11/18/2017 showed perihilar and lower lobe opacities. Technique: Portable AP 1951 hoursFINDINGS: Monitoring electrodes overlie the chest wall. Cardiomegaly withincreasing central vascular interstitial prominence with bibasilaropacities and effusions. No interval bone changes.IMPRESSION: Changes could indicate worsening cardiac decompensation orfluid overload.POC Glucose, [id number] 20:15:00 Test Item Value Reference Range Interpretation Comments POC Glucose (test 139 mg/dL 70-115 H If you con boarding specialist your code = POCGLUC) patient crit ically ill, the [facility] Accu- Chek InformII meters hould not be used for Glu cose determinations. Draw a venous Glucose and send to the Main Lab for Analysis. POC Glucose, [id number] 16:52:00 Test Item Value Reference Range Interpretation Comments POC Glucose (test 123 mg/dL 70-115 H If you con boarding specialist your code = POCGLUC) patient crit ically ill, the [facility] Accu- Chek InformII meters hould not be used for Glu cose determinations. Draw a venous Glucose and send to the Main Lab for Analysis. POC Glucose, [id number] 12:04:00 Test Item Value Reference Range Interpretation Comments POC Glucose (test 140 mg/dL 70-115 H If you con boarding specialist your code = POCGLUC) patient crit ically ill, the [facility] Accu- Chek InformII meters hould not be used for Glu cose determinations. Draw a venous Glucose and send to the Main Lab for Analysis. POC Glucose, [id number] 08:01:00 Test Item Value Reference Range Interpretation Comments POC Glucose (test 126 mg/dL 70-115 H If you con boarding specialist your code = POCGLUC) patient crit ically ill, the [facility] Accu- Chek InformII meters hould not be used for Glu cose determinations. Draw a venous Glucose and send to the Main Lab for Analysis. CK [id number] 06:03:00 Test Item Value Reference Range Interpretation Comments CK (test code = CK) na U/L 39-308 N CKMB (test code = CKMB) 2.8 ng/mL 0.0-4.9 N CKMB% (test code = CKMBP) 0.0 % 0.0-3.4 N Basic Metabolic [id number] 05:51:00 Test Item Value Reference Range Interpretation [...] the National Kidney Foundation,http ://nkd ep.nih.gov Magnesium, [id number] 05:51:00 Test Item Value Reference Range Interpretation Comments Magnesium (test code = MG) 1.9 mg/dL 1.7-2.5 N [id number] 05:51:00 Test Item Value Reference Range Interpretation Comments Phosphorus (test code = PO4) 3.8 mg/dL 2.70-4.50 N [id number]-[id number] 05:51:00 Test Item Value Reference Range Interpretation Comments NT ProBnp (test code = PBNP) >78525 pg/mL 0-124 H Troponin [id number] 05:51:00 Test Item Value Reference Range Interpretation Comments Troponin T (test code = MADHAV) 0.126 ng/mL 0.000-0.090 H CBC with [id number] 05:34:00 Test Item Value Reference Range Interpretation [...] code = ALYMPH) 0.4 K/cumm 0.5-4.6 L Hettinger Abs (test code = AMONO) 0.6 K/cumm 0.0-1.2 N Eos Abs (test code = AEOS) 0.13 K/cumm 0.00-0.74 N Baso Abs (test code = ABASO) 0.0 K/cumm 0.00-0.21 N CK [id number] 18:39:00 Test Item Value Reference Range Interpretation Comments CK (test code = CK) HIDE U/L 39-308 N CKMB (test code = CKMB) 3.2 ng/mL 0.0-4.9 N CKMB% (test code = CKMBP) HIDE % 0.0-3.4 N Troponin [id number] 18:39:00 Test Item Value Reference Range Interpretation Comments Troponin T (test code = MADHAV) 0.126 ng/mL 0.000-0.090 H Hep B Surface [id number] 18:39:00 Test Item Value Reference Range Interpretation Comments Hep Bs Ag (test code = HBSAG) Nonreactive Non-Reactive A POC Glucose, [id number] 16:47:00 Test Item Value Reference Range Interpretation Comments POC Glucose (test 143 mg/dL 70-115 H If you con boarding specialist your code = POCGLUC) patient crit ically ill, the [facility] Accu- Chek InformII meters hould not be used for Glu cose determinations. Draw a venous Glucose and send to the Main Lab for Analysis. XR CHEST 1 [id number] 08:18:18EXAM: Portable AP chest x-rayLOCATION: R16 INDICATION: CoughCOMPARISON: 11/07/2017FINDINGS:The cardiacsilhouette is stable enlargement. There are increasinginterstitial opacities, most evident in the per ihilar regions and lowerlobes. There is blunting of the costophrenic angles bilaterally. Thereis no discernible pneumothorax.IMPRESSION:Increasing perihilar and bilateral lower lobe opacities compared to theprior exam dated 11/07/2017. Findings may represent pulmonary edema orpneumonia in the appropriate clinical setting.Comprehensive Metabolic [id number] 08:05:00 Test Item Value Reference Range Interpretation [...] the National Kidney Foundation,http ://nkd ep.nih.gov CK [id number] 08:05:00 Test Item Value Reference Range Interpretation Comments CK (test code = CK) 149 U/L 39-308 N Troponin [id number] 08:02:00 Test Item Value Reference Range Interpretation Comments Troponin T (test code = MADHAV) 0.114 ng/mL 0.000-0.090 H Ttd-[id number] 08:02:00 Test Item Value Reference Range Interpretation Comments NT ProBnp (test code = PBNP) >95794 pg/mL 0-124 H CBC with [id number] 07:53:00 Test Item Value Reference Range Interpretation [...] code = ALYMPH) 0.9 K/cumm 0.5-4.6 N Hettinger Abs (test code = AMONO) 0.4 K/cumm 0.0-1.2 N Eos Abs (test code = AEOS) 0.11 K/cumm 0.00-0.74 N Baso Abs (test code = ABASO) 0.0 K/cumm 0.00-0.21 N XR CHEST 1 [id number] 21:38:09EXAM: CHEST ONE VIEWINDICATION: CoughCOMPARISON: October 06, 2017TECHNIQUE: AP view of the chest.FINDINGS: The cardiomediastinal silhouette is unchanged. Mild congestive changesbilaterally. No pneumothorax or pleural effusion is identified. Theosseous structures are unremarkable.IMPRESSION: Diffuse congestive changes bilaterally.LOCATION: R16US DUPLX EXT VEINS COMPRS, [id number] 20:09:34AFTER HOURS SERVICE ON: 10/06/2017 8:09 PMRIGHT Lower Extremity Venous Duplex Doppler ExaminationLocation Code [id number]: SwellingTechnique: Real-time castillo scale, Doppler spectral analysis [...] Lower Extremity Venous Duplex Doppler ExaminationLocation Code K85Vfuej ry: SwellingTechnique: Real-time castillo scale, Doppler spectral [...] of DVT in the imaged vessels.Comprehensive Metabolic [id number] 17:40:00 Test Item Value Reference Range Interpretation [...] National Kidney Foundation,http ://nkd ep.nih.gov CBC with [id number] 17:15:00 Test Item Value Reference Range Interpretation [...] code = ALYMPH) 1.3 K/cumm 0.5-4.6 N Hettinger Abs (test code = AMONO) 0.6 K/cumm 0.0-1.2 N Eos Abs (test code = AEOS) 0.12 K/cumm 0.00-0.74 N Baso Abs (test code = ABASO) 0.0 K/cumm 0.00-0.21 N XR CHEST 1 [id number] 16:56:42CHEST 1 VIEW: [id number]: coughCOMPARISON:Sep 24, 2017FINDINGS:The heart is enlarged. There is engorgement of the central pulmonaryvasculature. There are patchy bibasilar areas of infiltrate oratelectasis with bilateral effusions. No pneumothorax is present. IMPRESSION: 1. Patchy areas of atelectasis or infiltrate in the lung bases withsmall bilateral effusions and vascular congestion most likely secondaryto CHF.Culture, Blood [id number] 14:58:00Specimen: BloodCollected: 09/24/2017 13:05 Status: Final Last Updated: 09/29/2017 14:58 (1) ER Bed 1 Culture Result (Final) (Final) No Growth After 5 DaysCulture, Blood [id number] 14:58:00Specimen: BloodCollected: 09/24/2017 12:50 Status: Final Last Updated: 09/29/2017 14:58 (1) ER Bed 1 Culture Result (Final) (Final) No Growth After 5 DaysPOC Glucose, [id number] 10:54:00 Test Item Value Reference Range Interpretation Comments POC Glucose (test 168 mg/dL 70-115 H If you con boarding specialist your code = POCGLUC) patient crit ically ill, the [facility] Accu- Chek InformII meters hould not be used for Glu cose determinations. Draw a venous Glucose and send to the Main Lab for Analysis. POC Glucose, [id number] 07:16:00 Test Item Value Reference Range Interpretation Comments POC Glucose (test 143 mg/dL 70-115 H If you con boarding specialist your code = POCGLUC) patient crit ically ill, the [facility] Accu- Chek InformII meters hould not be used for Glu cose determinations. Draw a venous Glucose and send to the Main Lab for Analysis. CBC with [id number] 07:15:00 Test Item Value Reference Range Interpretation [...] code = ALYMPH) 1.3 K/cumm 0.5-4.6 N Hettinger Abs (test code = AMONO) 0.7 K/cumm 0.0-1.2 N Eos Abs (test code = AEOS) 0.07 K/cumm 0.00-0.74 N Baso Abs (test code = ABASO) 0.0 K/cumm 0.00-0.21 N Magnesium, [id number] 07:03:00 Test Item Value Reference Range Interpretation Comments Magnesium (test code = MG) 2.0 mg/dL 1.7-2.5 N Basic Metabolic [id number] 07:03:00 Test Item Value Reference Range Interpretation [...] National Kidney Foundation,http ://nkd ep.nih.gov POC Glucose, [id number] 21:40:00 Test Item Value Reference Range Interpretation Comments POC Glucose (test 129 mg/dL 70-115 H If you con boarding specialist your code = POCGLUC) patient crit ically ill, the [facility] Accu- Chek InformII meters hould not be used for Glu cose determinations. Draw a venous Glucose and send to the Main Lab for Analysis. Hep B Surface [id number] 18:36:00 Test Item Value Reference Range Interpretation Comments Hep Bs Ag (test code = HBSAG) Nonreactive Non-Reactive A POC Glucose, [id number] 10:51:00 Test Item Value Reference Range Interpretation Comments POC Glucose (test 216 mg/dL 70-115 H If you con boarding specialist your code = POCGLUC) patient crit ically ill, the [facility] Accu- Chek InformII meters hould not be used for Glu cose determinations. Draw a venous Glucose and send to the Main Lab for Analysis. POC Glucose, [id number] 07:57:00 Test Item Value Reference Range Interpretation Comments POC Glucose (test 164 mg/dL 70-115 H If you con boarding specialist your code = POCGLUC) patient crit ically ill, the [facility] Accu- Chek InformII meters hould not be used for Glu cose determinations. Draw a venous Glucose and send to the Main Lab for Analysis. POC Glucose, [id number] 19:47:00 Test Item Value Reference Range Interpretation Comments POC Glucose (test 140 mg/dL 70-115 H Notify RN or MDIf you code = POCGLUC) consider you r patient critically ill, the [facility] Accu-Chek InformII metershould not be used for Glucose determinations. Draw a venous Glucose and send to the Main Lab for Analysis. Troponin [id number] 19:36:00 Test Item Value Reference Range Interpretation Comments Troponin T (test code = MADHAV) 0.121 ng/mL 0.000-0.090 H CK [id number] 19:25:00 Test Item Value Reference Range Interpretation Comments CK (test code = CK) 160 U/L 39-308 N The valu e HIDE originally released by [facility] on 09/25/2017 19:1 2 waschanged to 1 60 by [employer] on 09/25 19:24 CKMB (test code = 3.0 ng/mL 0.0-4.9 N CKMB) CKMB% (test code = 1.9 % 0.0-3.4 N The value HIDE originally CKMBP) released by [facility] on 09/25/2017 19:1 2 waschanged to 1 .9 by [employer] on 09/25 19:24 POC Glucose, [id number] 16:42:00 Test Item Value Reference Range Interpretation Comments POC Glucose (test 123 mg/dL 70-115 H If you con boarding specialist your code = POCGLUC) patient crit ically ill, the [facility] Accu- Chek InformII meters hould not be used for Glu cose determinations. Draw a venous Glucose and send to the Main Lab for Analysis. POC Glucose, [id number] 12:09:00 Test Item Value Reference Range Interpretation Comments POC Glucose (test 141 mg/dL 70-115 H If you con boarding specialist your code = POCGLUC) patient crit ically ill, the [facility] Accu- Chek InformII meters hould not be used for Glu cose determinations. Draw a venous Glucose and send to the Main Lab for Analysis. Hep B Surface [id number] 07:59:00 Test Item Value Reference Range Interpretation Comments Hep Bs Ag (test code = HBSAG) Nonreactive Non-Reactive A CK [id number] 07:43:00 Test Item Value Reference Range Interpretation Comments CK (test code = CK) n/a U/L 39-308 N CKMB (test code = CKMB) 2.4 ng/mL 0.0-4.9 N CKMB% (test code = CKMBP) 0.0 % 0.0-3.4 N Troponin [id number] 07:38:00 Test Item Value Reference Range Interpretation Comments Troponin T (test code = MADHAV) 0.134 ng/mL 0.000-0.090 H Thyroid Stimulating Hormone (TSH)2017-09-25 07:38:00 Test Item Value Reference Range Interpretation Comments TSH (test code = TSH) 1.10 mIU/mL 0.270-4.200 N [id number] 07:38:00 Test Item Value Reference Range Interpretation Comments Phosphorus (test code = PO4) 3.4 mg/dL 2.70-4.50 N Comprehensive Metabolic [id number] 07:38:00 Test Item Value Reference Range Interpretation [...] the National Kidney Foundation,http ://nkd ep.nih.gov Magnesium, [id number] 07:38:00 Test Item Value Reference Range Interpretation Comments Magnesium (test code = MG) 2.0 mg/dL 1.7-2.5 N CK [id number] 07:31:00 Test Item Value Reference Range Interpretation Comments CK (test code = CK) 159 U/L 39-308 N Lipid [id number] 07:31:00 Test Item Value Reference Range Interpretation Comments Cholesterol (test 118 mg/dL 0-200 N code = CHOL) Triglycerides (test 170 mg/dL 9-200 N code = TRIG) HDL (test code = 49 mg/dL 40-60 N HDL) Chol/HDL (test code 2.4 Ratio 0.0-5.0 N = CHOLPHDL) LDL, Calculated 35 0-130 N (NOTE)RISK O F HEART (test code = LDLC) DISEASEPu blished by French Heart AssociationAnal yte Optim al Boderline Increased RiskC HOL <200 200-239 >240TRI G <150 150-199 >200HDL Male: >60 <40HDL Female: >60 <50 LDL < 100 130-15 9 >160 LDL NEAR OPTIMAL IS 100- 129 VLDL (test code = 34 mg/dL 5-40 N VLDL) LDL/HDL (test code = 1 LDLPHDL) Glycosylated [id number] 07:24:00 Test Item Value Reference Range Interpretation Comments HBA1c (test code = HBA1C) 5.0 % 4.8-5.9 N CBC with [id number] 07:20:00 Test Item Value Reference Range Interpretation [...] code = ALYMPH) 0.8 K/cumm 0.5-4.6 N Hettinger Abs (test code = AMONO) 0.5 K/cumm 0.0-1.2 N Eos Abs (test code = AEOS) 0.10 K/cumm 0.00-0.74 N Baso Abs (test code = ABASO) 0.0 K/cumm 0.00-0.21 N POC Glucose, [id number] 07:03:00 Test Item Value Reference Range Interpretation Comments POC Glucose (test 147 mg/dL 70-115 H If you con boarding specialist your code = POCGLUC) patient crit ically ill, the [facility] Accu- Chek InformII meters hould not be used for Glu cose determinations. Draw a venous Glucose and send to the Main Lab for Analysis. POC Glucose, [id number] 22:05:00 Test Item Value Reference Range Interpretation Comments POC Glucose (test 134 mg/dL 70-115 H If you con boarding specialist your code = POCGLUC) patient crit ically ill, the [facility] Accu- Chek InformII meters hould not be used for Glu cose determinations. Draw a venous Glucose and send to the Main Lab for Analysis. Blood Gas+Lytes+Glu+Ca+Hgb+Hct+[id number] 18:31:00 Test Item Value Reference Range Interpretation [...] (test code = alokrblvverqnscrit COMMENT) heather Pierre@ 13982/23figrrt Puncture Site (test code = Radial. R PUNSITE) Drawing Tech ID (test code gianfranco fi = DRAWTECH) iPAP (test code = IPAP) 0 cmH2O Respiratory Rate (test code 0 = RESP RATE) Lactic Acid, Blood Gas 0.4 mmol/L (test code = BGLA) CT CHEST W/O [id number] 16:48:03CT CHEST W/O CONTRASTLOCATION CODE: R16 HISTORY: [...] bilateral axillary, prevascular, andparatracheal lymph nodes.Influenza B [id number] 14:36:00Specimen: NasalCollected: 09/24/2017 14:04 Status: Final Last [...] Culture of negative samples is recommended.Influenza A [id number] 14:34:00Specimen: NasalCollected: 09/24/2017 14:04 Status: Final Last [...] Culture of negative samples is recommended.Comprehensive Metabolic [id number] 13:54:00 Test Item Value Reference Range Interpretation [...] the National Kidney Foundation,http ://nkd ep.nih.gov Troponin [id number] 13:54:00 Test Item Value Reference Range Interpretation Comments Troponin T (test code = MADHAV) 0.124 ng/mL 0.000-0.090 H Dqs-[id number] 13:54:00 Test Item Value Reference Range Interpretation Comments NT ProBnp (test code = PBNP) >58072 pg/mL 0-124 H CK [id number] 13:54:00 Test Item Value Reference Range Interpretation Comments CK (test code = CK) 222 U/L 39-308 N CKMB (test code = CKMB) 3.1 ng/mL 0.0-4.9 N CKMB% (test code = CKMBP) 1.4 % 0.0-3.4 N CK [id number] 13:54:00 Test Item Value Reference Range Interpretation Comments CK (test code = CK) 222 U/L 39-308 N Partial Thromboplastin [id number] 13:43:00 Test Item Value Reference Range Interpretation Comments aPTT (test code = PTT) 35.70 seconds 24.39-37.25 N Prothrombin [id number] 13:43:00 Test Item Value Reference Range Interpretation Comments PT (test code = PT) 11.30 seconds 9.78-13.35 N INR (test code = INR) 0.99 Ratio 0.6-1.2 N Lactic Acid [id number] 13:41:00 Test Item Value Reference Range Interpretation Comments Lactic Acid, Bld (test code = LAC) 1.3 mmol/L 0.5-1.9 N CBC with [id number] 13:32:00 Test Item Value Reference Range Interpretation [...] code = ALYMPH) 1.2 K/cumm 0.5-4.6 N Hettinger Abs (test code = AMONO) 0.6 K/cumm 0.0-1.2 N Eos Abs (test code = AEOS) 0.23 K/cumm 0.00-0.74 N Baso Abs (test code = ABASO) 0.0 K/cumm 0.00-0.21 N XR CHEST 1 [id number] 12:50:14XR CHEST 1 VIEWLOCATION: [id number]: None.INDICATION: CoughDISCUSSION:A single portable chest radiograph was [...]
[2021-07-20 12:11] LABS: Absolute Lymphocytes (CBC) 0.6 K/uL (0.7-4.9); Basophils % 0.7 % (0-1.3); Hematocrit 30.4 % (39.6-49.0); MPV 7.1 fL (7.6-11.3); RBC Red Blood Cell Count 3.14 M/uL (4.33-5.43)
[2021-07-20 12:17] LABS: Protime INR 1.84
[2021-07-20 12:46] LABS: Albumin 3.4 g/dL (3.4-5.0); Bilirubin Direct 0.3 mg/dL (0-0.2); Bilirubin Total 0.9 mg/dL (0.2-1.0); Magnesium 1.9 mg/dL (1.8-2.4); Potassium 3.4 mmol/L (3.5-5.1); Protein, Total 8.3 g/dL (6.4-8.2); Troponin (Emerg Dept Use Only) 0.02 ng/mL (0.0-0.045)
--- NOTE | 2021-07-20 13:03 | RAD REPORT ---
EXAM DESCRIPTION: RAD - Chest Single View - 07/20/2021 12:53 pm CLINICAL HISTORY: PALPITATIONS COMPARISON: Chest Single View dated 06/27/2021; Chest Single View dated 06/20/2021; Chest Single Vie w dated 10/22/2020; Chest Single View dated 07/15/2020; Thorax Wo Con dated 06/20/2021 FINDINGS: Lines: None. Lungs: Bilateral airspace disease is again identified. Pleural: Bilateral pleural effusions. Cardiac: Cardiomegaly. Bones: No acute fractures. Other: IMPRESSION: Bibasilar airspace disease which is similar to prior and may reflect either pneumonia or chronic changes. Mild pulmonary edema also noted.
--- NOTE | 2021-07-20 14:50 | ER ---
Nurse's Notes [facility] Name: Salvatore Goldman Age: 66 yrs Sex: Male : 1955 Arrival Date: 07/20/2021 Time: 11:28 Bed 14 Private MD: Lorne Washburn Diagnosis: Palpitations, chest pain, end-stage renal disease, diabetes mellitus, cirrhosis, HIV, hepatitis Presentation: 07/20 11:30 Chief complaint: Patient states: "I just had dialysis this morning and I think they got aa5 too much fluid out". Pt reports palpitations, chest pain, and right flank pain today. HR currently 165, reports hx of A-fib with RVR, takes Warfarin. 11:30 Onset of symptoms was July 20, 2021. aa5 11:30 Acuity: NARDA 2 aa5 11:30 Coronavirus screen: At this time, the client does not indicate any symptoms associated aa5 with coronavirus-19. Ebola Screen: No symptoms or risks identified at this time. Initial Sepsis Screen: Does the patient meet any 2 criteria? HR > 90 bpm. Does the patient have a suspected source of infection? No. Patient's initial sepsis screen is negative. Risk Assessment: Do you want to hurt yourself or someone else? Patient reports no desire to harm self or others. 11:30 Method Of Arrival: Wheelchair aa5 Historical: - Allergies: 11:33 No Known Allergies; tw2 - Home Meds: 11:33 carvedilol 12.5 mg Oral tab 1 tab 2 times per day [Active]; Epclusa 400-100 mg Oral tab tw2 1 tab once daily [Active]; Kaletra 200-50 mg Oral tab 2 tabs 2 times per day [Active]; Isentress 400 mg Oral tab 1 tab 2 times per day [Active]; lamivudine 10 mg/mL Oral soln 2.5 mL once daily [Active]; pantoprazole 40 mg Oral TbEC 1 tab once daily [Active]; prednisolone acetate 1 % Opht drps 1 drop 4 times per day [Active]; Daija-Kodak 0.8 mg Oral tab daily [Active]; Vitamin D Oral 20230 unit WEEKLY [Active]; warfarin 10 mg Oral tab 1.5 tabs on M,W, F and 1 tab on T,Thurs, Sat, Sun [Active]; - PMHx: 11:33 HIV; Cirrhosis; Diabetes - NIDDM; Dialysis; heart valve; Hepatitis; Hyperlipidemia; tw2 Hypertensive disorder; Karposi Sarcoma (left leg); kidney failure; L arm HD access; - Immunization history:: Adult Immunizations up to date, Client reports receiving the 2nd dose of the Covid vaccine, and booster. - Social history:: Smoking status: Patient/guardian denies using tobacco, but has a distant history of tobacco abuse. Screenin:32 Abuse screen: Denies threats or abuse. Nutritional screening: No deficits noted. tw2 Tuberculosis screening: No symptoms or risk factors identified. Fall Risk None identified. Assessment: 11:37 Reassessment: Pt's HR decreased, pt reports palpitations have decreased. Unable to aa5 obtain EKG at [address] Jalloh was notified. . 11:54 General: Appears comfortable, Behavior is calm, cooperative. Pain: Complains of pain in ap3 left flank Pain does not radiate. Pain currently is 3 out of 10 on a pain scale. Quality of pain is described as aching, Pain began suddenly, after dialysis. Neuro: Level of Consciousness is awake, alert, obeys commands, Oriented to person, place, time, situation, Speech is normal. Cardiovascular: Rhythm is sinus tachycardia. Respiratory: Airway is patent Respiratory effort is even, unlabored, Respiratory pattern is regular, symmetrical. 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 water tw2 fire equipment inspector helper to pt at this time. 13:03 Reassessment: No changes from previously documented assessment. Patient and/or family ap3 updated on plan of care and expected duration. Pain level reassessed. Patient is alert, oriented x 3, equal unlabored respirations, skin warm/dry/pink. 14:00 Reassessment: patient provided with ericka. ap3 Vital Signs: 11:30 BP 118 / 86; Pulse 165; Resp 18 S; Temp 98.5(TE); Pulse Ox 96% on R/A; aa5 11:37 Pulse 93; aa5 12:14 BP 115 / 69; Pulse 94; Resp 15; Pulse Ox 98% on R/A; ap3 13:01 BP 110 / 70; Pulse 86; Resp 17; Pulse Ox 97% on R/A; ap3 13:47 BP 107 / 68; Pulse 81; Pulse Ox 99% on R/A; ap3 ED Course: 11:28 Patient arrived in ED. as 11:29 Lorne Washburn DO is Private Physician. as 11:30 Patient placed in an exam room, on a stretcher. aa5 11:31 Walter Jalloh MD is Attending Physician. kdr 11:41 Arm band placed on. EKG completed in triage. Results shown to MD. tw2 11:43 Michelle Whitney, RN is Primary Nurse. ap3 11:44 Triage completed. aa5 11:53 Initial lab(s) drawn, by me, sent to lab. Inserted saline lock: 20 gauge in right kj1 forearm, using aseptic technique. Blood collected. 11:57 Patient has correct armband on for positive identification. Bed in low position. Call ap3 light in reach. Side rails up X2. paint stock clerk on. Pulse ox on. NIBP on. Door closed. Noise minimized. 11:57 Patient maintains SpO2 saturation greater than 95% on room air. ap3 12:54 XRAY Chest (1 view) In Process Unspecified. EDMS 14:48 Lorne Washburn DO is Referral Physician. kdr 15:01 No provider procedures requiring assistance completed. IV discontinued, intact, ap3 bleeding controlled, No redness/swelling at site. Pressure dressing applied. Administered Medications: No medications were administered Outcome: 14:49 Discharge ordered by . kdr 15:01 Discharged to home ambulatory. ap3 15:01 Condition: good 15:01 Discharge instructions given to patient, Instructed on discharge instructions, follow up and referral plans. Demonstrated understanding of instructions, follow-up care. 15:02 Patient left the ED. ap3 Signatures: Dispatcher [employer] EDMS Walter Jalloh MD MD kdr Angely Merchant Audri, RN RN aa5 Maryam Kim RN RN tw2 Michelle Whitney RN RN ap3 Suzanna Brown kj1
--- NOTE | 2021-07-20 14:50 | EDPHYS ---
Physician Documentation [facility] Name: Salvatore Goldman Age: 66 yrs Sex: Male : 1955 Arrival Date: 07/20/2021 Time: 11:28 Bed 14 Private MD: Lorne Washburn ED Physician Walter Jalloh HPI: 07/20 13:03 This 66 yrs old Black Male presents to ER via Wheelchair with complaints of Chest Pain, kdr Palpitations, Flank Pain. 13:03 The patient or guardian reports chest pain that is located primarily in the chest kdr diffusely. States that he had dialysis this morning. Indicated that he has suspected that the dialysis center was taking too much fluid off of him. He began having palpitations. The same problem occurred last week during dialysis. He has no other complaints at this time. Prior to arrival or shortly after arrival, he resume normal sinus rhythm. He denies any other complaints or concerns at this time. 13:06 Onset: suddenly, just prior to arrival. The pain does not radiate. Associated signs and kdr symptoms: The patient has no apparent associated signs or symptoms. The chest pain is described as aching, dull. Duration: The patient or guardian reports a single episode, that is now resolved. Modifying factors: The symptoms are alleviated by nothing. the symptoms are aggravated by nothing. Severity of pain: At its worst the pain was very mild in the emergency department the pain has resolved. The patient has experienced similar episodes in the past, a few times, Last episode was a week or 2 ago postdialysis as today. Historical: - Allergies: 11:33 No Known Allergies; tw2 - Home Meds: 11:33 carvedilol 12.5 mg Oral tab 1 tab 2 times per day [Active]; Epclusa 400-100 mg Oral tab tw2 1 tab once daily [Active]; Kaletra 200-50 mg Oral tab 2 tabs 2 times per day [Active]; Isentress 400 mg Oral tab 1 tab 2 times per day [Active]; lamivudine 10 mg/mL Oral soln 2.5 mL once daily [Active]; pantoprazole 40 mg Oral TbEC 1 tab once daily [Active]; prednisolone acetate 1 % Opht drps 1 drop 4 times per day [Active]; Daija-Kodak 0.8 mg Oral tab daily [Active]; Vitamin D Oral 67297 unit WEEKLY [Active]; warfarin 10 mg Oral tab 1.5 tabs on M,W, F and 1 tab on T,Thurs, Sat, Sun [Active]; - PMHx: 11:33 HIV; Cirrhosis; Diabetes - NIDDM; Dialysis; heart valve; Hepatitis; Hyperlipidemia; tw2 Hypertensive disorder; Karposi Sarcoma (left leg); kidney failure; L arm HD access; - Immunization history:: Adult Immunizations up to date, Client reports receiving the 2nd dose of the Covid vaccine, and booster. - Social history:: Smoking status: Patient/guardian denies using tobacco, but has a distant history of tobacco abuse. ROS: 13:06 Constitutional: Negative for fever, chills, and weight loss, Eyes: Negative for injury, kdr pain, redness, and discharge, ENT: Negative for injury, pain, and discharge, Neck: Negative for injury, pain, and swelling, Respiratory: Negative for shortness of breath, cough, wheezing, and pleuritic chest pain, Abdomen/GI: Negative for abdominal pain, nausea, vomiting, diarrhea, and constipation, Back: Negative for injury and pain, : Negative for injury, bleeding, discharge, and swelling, MS/Extremity: Negative for injury and deformity, Skin: Negative for injury, rash, and discoloration, Neuro: Negative for headache, weakness, numbness, tingling, and seizure activity. Psych: Negative for depression, anxiety, suicide ideation, homicidal ideation, and hallucinations, Allergy/Immunology: Negative for hives, rash, and allergies, Endocrine: Negative for neck swelling, polydipsia, polyuria, polyphagia, and marked weight changes, Hematologic/Lymphatic: Negative for swollen nodes, abnormal bleeding, and unusual bruising. 13:06 Cardiovascular: Positive for palpitations, Negative for chest pain, edema, paroxysmal nocturnal dyspnea. Exam: 13:01 ECG was reviewed by the Attending Physician. kdr 13:06 Constitutional: This is a well developed, well nourished patient who is awake, alert, kdr and in no acute distress. Head/Face: Normocephalic, atraumatic. Eyes: Pupils equal round and reactive to light, extra-ocular motions intact. Lids and lashes normal. Conjunctiva and sclera are non-icteric and not injected. Cornea within normal limits. Periorbital areas with no swelling, redness, or edema. Neck: Trachea midline, no thyromegaly or masses palpated, and no cervical lymphadenopathy. Supple, full range of motion without nuchal rigidity, or vertebral point tenderness. No Meningismus. Chest/axilla: Normal chest wall appearance and motion. Nontender with no deformity. No lesions are appreciated. Cardiovascular: Regular rate and rhythm with a normal S1 and S2. No gallops, murmurs, or rubs. Normal PMI, no JVD. No pulse deficits. Respiratory: Lungs have equal breath sounds bilaterally, clear to auscultation and percussion. No rales, rhonchi or wheezes noted. No increased work of breathing, no retractions or nasal flaring. Abdomen/GI: Soft, non-tender, with normal bowel sounds. No distension or tympany. No guarding or rebound. No evidence of tenderness throughout. Back: No spinal tenderness. No costovertebral tenderness. Full range of motion. Skin: Warm, dry with normal turgor. Normal color with no rashes, no lesions, and no evidence of cellulitis. MS/ Extremity: Pulses equal, no cyanosis. Neurovascular intact. Full, normal range of motion. Neuro: Awake and alert, GCS 15, oriented to person, place, time, and situation. Cranial nerves II-XII grossly intact. Motor strength 5/5 in all extremities. Sensory grossly intact. Cerebellar exam normal. Normal gait. Psych: Awake, alert, with orientation to person, place and time. Behavior, mood, and affect are within normal limits. Vital Signs: 11:30 BP 118 / 86; Pulse 165; Resp 18 S; Temp 98.5(TE); Pulse Ox 96% on R/A; aa5 11:37 Pulse 93; aa5 12:14 BP 115 / 69; Pulse 94; Resp 15; Pulse Ox 98% on R/A; ap3 13:01 BP 110 / 70; Pulse 86; Resp 17; Pulse Ox 97% on R/A; ap3 13:47 BP 107 / 68; Pulse 81; Pulse Ox 99% on R/A; ap3 MDM: 14:46 Data reviewed: vital signs, nurses notes. ED course: Last hemoglobin was 10.6 on 07/15. kdr On the first of the month the hemoglobin was 8.3 and had been in the mid to low eights since June 20. The BNP was 43,574 on 06/27. These values today are not unusual for the patient.. 14:49 Patient medically screened. [facility] 07/20 11:52 Order name: Basic Metabolic Panel; Complete Time: 14:43 [facility] 07/20 11:52 Order name: CBC with Diff; Complete Time: 14:43 [facility] 07/20 11:52 Order name: LFT's; Complete Time: 14:43 [facility] 07/20 11:52 Order name: Magnesium; Complete Time: 14:43 [facility] 07/20 11:52 Order name: NT PRO-BNP; Complete Time: 14:43 [facility] 07/20 11:52 Order name: PT-INR; Complete Time: 14:43 [facility] 07/20 11:52 Order name: Troponin (emerg Dept Use Only); Complete Time: 14:43 [facility] 07/20 11:52 Order name: XRAY Chest (1 view); Complete Time: 14:43 [facility] 07/20 11:52 Order name: EKG; Complete Time: 11:53 [facility] 07/20 11:52 Order name: Cardiac monitoring; Complete Time: 11:54 [facility] 07/20 11:52 Order name: EKG - Nurse/Tech; Complete Time: 11:54 [facility] 07/20 11:52 Order name: IV Saline Lock; Complete Time: 11:54 [facility] 07/20 11:52 Order name: Labs collected and sent; Complete Time: 12:00 [facility] 07/20 11:52 Order name: O2 Per Protocol; Complete Time: 11:54 [facility] 07/20 11:52 Order name: O2 Sat Monitoring; Complete Time: 11:54 [facility] EC:01 Rate is 93 beats/min. Rhythm is regular, Sinus Rhythm with No ectopy. QRS [place] is kdr Normal. PA interval is normal. QRS interval is normal. QT interval is normal. Clinical impression: NSR w/ Non-specific ST/T Changes. Administered Medications: No medications were administered Disposition Summary: 07/20/21 14:49 Discharge Ordered Location: Home kdr Problem: new kdr Symptoms: are resolved kdr Condition: Fair kdr Diagnosis - Palpitations, chest pain, end-stage renal disease, diabetes mellitus, cirrhosis, kdr HIV, hepatitis Followup: kdr - With: Lorne Washburn DO - When: 2 - 3 days - Reason: If symptoms return, Further diagnostic work-up, Recheck today's complaints, Continuance of care, Re-evaluation by your physician Discharge Instructions: - Discharge Summary Sheet kdr - Palpitations, [id number] kdr - Chronic Kidney Disease, Adult, [id number] kdr Forms: - Medication Reconciliation Form kdr - Thank You Letter kdr Signatures: Dispatcher [employer] Walter Parks MD MD kdr Maryam Kim RN RN tw2 Michelle Whitney RN RN ap3
[2021-07-20 15:42] VITALS: TEMP 98.5
[2021-07-20 15:47] VITALS: BP 107/68; O2SAT 99
--- NOTE | 2021-07-21 13:20 | EKG ---
Test Date: 2021-07-20 Test Time: 11:37:24 [employer] Drilling Machine Operator: HUMBERTO MEASUREMENT RESULTS: Intervals: Rate: 93 HI: 152 QRSD: 94 QT: 384 QTc: 477 [place]: P: HI: 152 QRS: 73 T: 59 INTERPRETIVE STATEMENTS: Normal sinus rhythm Normal ECG Compared to ECG 07/15/2021 23:00:52 Sinus tachycardia no longer present Electronically Signed On 07-21-21 13:16:40 PANTS PRESSER by Rafael Bedolla
== END 2021-07-20 15:02 | disposition home or self-care (01) ==
LOC: ER 11:27
DX: R07.9 Chest pain, unspecified (principal); R00.2 Palpitations; E11.22 Type 2 diabetes mellitus with diabetic chronic kidney disease; I12.0 Hypertensive chronic kidney disease with stage 5 chronic kidney disease or end stage renal disease; N18.6 End stage renal disease; B20 Human immunodeficiency virus [HIV] disease; C46.0 Kaposi's sarcoma of skin; Z79.01 Long term (current) use of anticoagulants; Z99.2 Dependence on renal dialysis
CPT/HCPCS: 36415; 71045; 80048; 80076; 83735; 83880; 84484; 85025; 85610; 93005; 99285

== ENCOUNTER 2021-07-25 17:39 | Emergency (ER) | payer OTHER ==
--- OUTSIDE RECORDS SUMMARY | 2021-07-25 18:02 | XMS REPORT | Continuity of Care Document ---
:1955 Author Organization [facility] t Address [address] [place] [address] Care Team Providers Name Role Phone RADHA [...] ELIANA Attending Clinician Unavailable SHILA JAFFE MD, M.DDafne Attending Clinician Unavailable RAHUL OCAMPO Admitting Clinician [...] Expiration Date S prabhjot MEDICARE A B [id number] 2010 00:00:00 MEDICARE PART A & [id number] 2010 B 00:00:00 MEDICARE PART A [id number] 2010 \\T\\ B 00:00:00 CDC REVIEW [id number] 2020 00:00:00 Problems This patient has no known problems. Allergies, Adverse Reactions, Alerts Allergy Allergy Status Severity Reaction(s) Onset Inactive Treating Comm ents Source Name Type Date Date Clinician CODEINE Allergy Active Med Other [facility] 12-02 00:00: 00 NO KNOWN Drug Active [facility] ALLERG Class ity of S [facility] Medications This patient has no known medications. [...] / Time Performed Performing Clinician Sourc e 0V1E04U 2020-06-29 00:00:00 ENCPL 0L3C14T 2020-06-29 00:00:00 ENCPL 0A2P19C 2020-06-29 00:00:00 ENCPL 5I2C01I 2020-06-29 00:00:00 ENCPL 0I9O09G 2020-06-29 00:00:00 ENCPL 2E8M63J 2020-06-29 00:00:00 ENCPL 8E4X38W 2020-06-29 00:00:00 ENCPL 8C3M88F 2020-06-29 00:00:00 ENCPL 5W3G91X 2020-06-29 00:00:00 ENCPL 1Q7O03E 2020-06-29 00:00:00 ENCPL 2G2O87O 2020-06-29 00:00:00 ENCPL 4H8B31F 2020-06-29 00:00:00 ENCPL 8I1M25M 2020-06-29 00:00:00 ENCPL 4V1D63Q 2020-06-29 00:00:00 ENCPL 2K5V43W 2020-03-05 00:00:00 ENCPL 6T7P26Z 2020-03-05 00:00:00 ENCPL 9K4V73Z 2020-03-05 00:00:00 ENCPL 9U2K82C 2020-03-05 00:00:00 ENCPL 0M6U30Q 2020-03-05 00:00:00 ENCPL 5U4C21G 2020-03-05 00:00:00 ENCPL 3Z8U72X 2020-03-05 00:00:00 ENCPL 2V3C04Y 2020-03-05 00:00:00 ENCPL 3D7L18I 2020-03-05 00:00:00 ENCPL 0L3R58S 2020-03-05 00:00:00 ENCPL 2R7M88S 2020-03-05 00:00:00 ENCPL 9N9O59D 2020-03-05 00:00:00 ENCPL 4K8Q92B 2020-03-05 00:00:00 ENCPL 7M0A47Z 2020-03-05 00:00:00 ENCPL 5U5K96N 2020-03-05 00:00:00 ENCPL 8P1F77V 2020-03-05 00:00:00 ENCPL 3N8H64I 2020-03-05 00:00:00 ENCPL 8I7A97U 2020-03-05 00:00:00 ENCPL 0P0E76D 2020-03-05 00:00:00 ENCPL 0I7N88A 2020-03-05 00:00:00 ENCPL 5B4Q34L 2020-03-05 00:00:00 ENCPL 0P3G01Q 2019-01-08 00:00:00 ENCPL 6Z2Z11C 2019-01-08 00:00:00 ENCPL 7E9C70P 2019-01-08 00:00:00 ENCPL 1I6X73M 2019-01-08 00:00:00 ENCPL Encounters Start End Encounter Admission Attending Care Care Encounter Source Date/Time Date/Time Type Type Clinicians Facility Department ID 2020-07-06 Outpatient ALOK SARA SHERR EN[facility] [id number] ENCCLR 21:26:21 N MELVIN 2020-02-26 Inpatient ER DAMARIS [facility] [id number] [facility] 23:10:00 [facility] 2021-10-23 2021-10-23 [facility] [id number] [place] 00:00:00 00:00:00 [facility] 2021-10-09 2021-10-09 Out[facility] [id number] [place] 00:00:00 00:00:00 [facility] 2021-09-05 2021-09-05 Outpatient [facility] [id number] [place] 00:00:00 00:00:00 [facility] 2021-07-31 2021-07-31 Outpatient JOSE [facility] [id number] [place] 00:00:00 00:00:00 [facility] 2021-07-21 2021-07-21 Outpatient EL MARQUEZ, [facility] [id number] [facility] 07:11:08 23:59:00 [facility] 2021-07-19 2021-07-19 Outpatient EL [facility] [id number] [facility] 07:19:43 07:19:43 2021-07-17 2021-07-17 Outpatient [facility] [id number] [place] 12:03:08 12:07:37 [facility] 2021-07-17 2021-07-17 Outpatient BOBBY [facility] [id number] [place] 09:04:13 11:23:22 [facility] 2021-07-17 2021-07-17 Outpatient [facility] [id number] [place] 08:46:08 09:12:52 [facility] 2021-07-17 2021-07-17 Outpatient ALEJANDRINA [facility] [id number] [place] 00:00:00 00:00:00 JOSE GUILLERMO 2021-07-17 2021-07-17 Outpatient HARRIETT [facility] [id number] [place] 00:00:00 00:00:00 [facility] 2021-07-10 2021-07-10 Outpatient JOSE M[facility] [id number] [place] 00:00:00 00:00:00 [facility] 2021-07-03 2021-07-03 Outpatient [facility] [id number] [place] 07:40:01 14:04:21 [facility] 2021-07-03 2021-07-03 Outpatient BOBBY [facility] [id number] [place] 08:05:52 08:18:57 [facility] 2021-07-03 2021-07-03 Outpatient 3 [facility] [id number] [place] 08:05:52 08:18:57 [facility] 2021-07-03 2021-07-03 Outpatient JUDD, [facility] [id number] [place] 00:00:00 00:00:00 [facility] 2021-07-03 2021-07-03 Outpatient HARRIETT [facility] [id number] [place] 00:00:00 00:00:00 [facility] 2021-06-26 2021-06-26 Outpatient JOSE [facility] [id number] [place] 07:54:30 08:35:16 [facility] 2021-06-12 2021-06-12 Outpatient [facility] [id number] [place] 07:56:03 08:33:36 [facility] 2021-05-29 2021-05-29 Outpatient [facility] [id number] [place] 08:28:20 09:29:41 [facility] 2021-05-15 2021-05-15 Outpatient [facility] [id number] [place] 08:03:38 08:31:36 [facility] 2021-05-01 2021-05-01 Outpatient [facility] [id number] [place] 08:40:51 08:46:27 [facility] 2021-05-01 2021-05-01 Outpatient JOSE [facility] [id number] [place] 08:04:58 08:32:39 [facility] 2021-05-01 2021-05-01 Outpatient DANIELLE [facility] [id number] [place] 00:00:00 00:00:00 [facility] 2021-04-24 2021-04-24 Outpatient [facility] [id number] [place] 08:03:45 08:22:54 [facility] 2021-04-17 2021-04-17 Outpatient [facility] [id number] [place] 08:38:35 08:58:58 [facility] 2021-04-10 2021-04-10 Outpatient FRANCESCO [facility] [id number] [place] 00:00:00 00:00:00 [facility] 2021-03-27 2021-03-27 Outpatient DANIELLE [facility] [id number] [place] 12:10:09 12:36:55 [facility] 2021-03-27 2021-03-27 Outpatient JOSE M[facility] [id number] [place] 09:45:17 10:13:09 [facility] 2021-03-07 2021-03-07 Outpatient JOSE [facility] [id number] [place] 12:04:05 12:23:09 [facility] 2021-02-20 2021-02-20 Outpatient [facility] [id number] [place] 08:34:14 08:39:27 [facility] 2021-02-20 2021-02-20 Outpatient JOSE M[facility]EL [facility]Y [facility] [id number] [place] 08:09:20 08:34:30 [facility] 2021-02-20 2021-02-20 Outpatient HARRIETT [facility] [id number] [place] 00:00:00 00:00:00 [facility] 2021-02-19 2021-02-19 Emergency BURCH, [facility] [id number] [place] 00:00:00 00:00:00 KRISTI [address] 2021-02-06 2021-02-06 Outpatient [facility] [id number] [place] 09:14:10 09:17:27 [facility] 2021-02-06 2021-02-06 Outpatient [facility]SE [facility] [id number] [place] 08:49:54 09:14:22 [facility] 2021-02-06 2021-02-06 Outpatient DANIELLE [facility] [id number] [place] 00:00:00 00:00:00 [facility] 2021-02-06 2021-02-06 Outpatient JUDD [facility] [id number] [place] 00:00:00 00:00:00 [facility] 2021-01-23 2021-01-23 Outpatient DANIELLE [facility] [id number] [place] 11:31:24 12:44:32 [facility] 2021-01-23 2021-01-23 Outpatient JOSE M[facility] [id number] [place] 10:14:28 10:36:06 [facility] 2021-01-10 2021-01-10 Outpatient JOSE M[facility]EL [facility]Y [facility] [id number] [place] 07:22:07 11:41:14 [facility] 2021-01-09 2021-01-09 Outpatient [facility] [id number] [place] 09:13:08 09:20:36 [facility] 2021-01-09 2021-01-09 Outpatient LORENZANA, [facility] [id number] [place] 08:19:59 09:12:38 [facility] 2021-01-09 2021-01-09 Outpatient DARLENEY, [facility] [id number] [place] 00:00:00 00:00:00 [facility] 2021-01-09 2021-01-09 Outpatient LORENZANA, [facility] [id number] [place] 00:00:00 00:00:00 [facility] 2021-01-04 2021-01-04 Outpatient JOSE MIGUEL [facility]Y [facility] [id number] [place] 11:36:44 12:43:02 [facility] 2021-01-02 2021-01-02 Outpatient JOSE MIG[facility]EL [facility]Y [facility] [id number] [place] 07:27:21 12:04:53 [facility] 2021-01-02 2021-01-02 Outpatient JOSE MIGUEL [facility]Y [facility] [id number] [place] 00:00:00 00:00:00 [facility] 2020-12-30 2020-12-30 Outpatient [facility] [id number] [place] 00:00:00 00:00:00 [facility] 2020-12-19 2020-12-19 Outpatient JOSE MIGUEL BARRY [facility] [id number] [place] 09:18:35 09:59:02 [facility] 2020-12-16 2020-12-16 Outpatient JESSICA, [facility] [id number] [place] 10:25:40 10:35:40 [facility] 2020-12-16 2020-12-16 Outpatient DARLENEY, [facility] [id number] [place] 00:00:00 00:00:00 [facility] 2020-11-28 2020-11-28 Emergency X [facility] [id number] [facility] 22:52:00 22:52:00 JAMIL [facility] 2020-11-24 2020-11-24 Outpatient RUPERTO, [facility] [id number] [place] 13:25:44 13:59:48 [facility] 2020-11-10 2020-11-10 Outpatient RUPERTO, [facility] [id number] [place] 00:00:00 00:00:00 [facility] 2020-11-09 2020-11-09 Outpatient JONNY MON [facility] [id number] [place] 07:51:58 08:14:33 Health 2020-10-27 2020-10-27 Outpatient RUPERTO, [facility] [id number] [place] 12:02:34 12:25:02 [facility] 2020-10-20 2020-10-20 Outpatient RUPERTO, [facility] [id number] [place] 00:00:00 00:00:00 [facility] 2020-10-20 2020-10-20 Outpatient RUPERTO, [facility] [id number] [place] 00:00:00 00:00:00 [facility] 2020-10-06 2020-10-06 Outpatient RUPERTO, [facility] [id number] [place] 11:11:47 11:11:47 [facility] 2020-07-08 2020-07-08 Outpatient JUNE SHERMITALI JACQUES [id number] [facility] 08:37:00 08:37:00 MELVIN [facility] 2020-05-09 2020-06-28 Inpatient VO, [facility] [id number] [place] 00:00:00 00:00:[address] 2020-04-21 2020-04-21 Emergency ER SLE Emergency [id number] [facility] 20:49:00 20:49:00 2019-11-09 2019-11-09 Outpatient [facility] MED [id number] [facility] 08:51:00 08:51:00 2019-09-12 2019-09-12 Emergency MUÑOZ, [facility] [id number] [place] 00:00:00 00:00:00 [facility] 2017-11-18 2017-11-20 Inpatient C AMIE, [facility] MED [id number] [facility]. 13:43:00 13:54:00 [facility] 2017-11-07 2017-11-07 Emergency E [facility] MED [id number] [facility]. 20:22:00 20:22:00 [facility] 2017-10-06 2017-10-06 Emergency E ELIANA, [facility] MED [id number] St. 14:25:00 14:25:00 [facility] Results Test Description Test Time Test Comments Results Result Comments Source PROTHROMBIN TIME/INR 2021-07-21 07:51:16 Test Item Value Reference Range Interpretation Comme nts PROTIME (BEAKER) (test code 19.0 seconds 11.9-14.2 H = 759) INR (BEAKER) (test code = 1.62 See_Comment [ Automated message] The 370) system which ge nerated this result transmit jayla reference range: <=5.90. The reference range was not u sed to interpret this result as normal/abnormal . RECOMMENDED COUMADIN/WARFARIN INR THERAPY RANGESSTANDARD DOSE: 2.0 - 3.0 Includes: PROPHYLAXIS forvenous thrombosis, systemic embolization; TREATMENT for venous thrombosis and/or pulmonary embolus.HIGH RISK: Target INR is 2.5-3.5 for patients with mechanical heart valves.SARS-COV2/RT-PCR ([facility]) 2021-07-19 20:41:44 Test Item Value Reference Range Interpretation Comments SARS-COV2/RT-PCR (test code = Negative Negative 0065704) Negative result for this test determines that [...] the Chairez SARS-CoV-2 assay.Fact Sheet for Healthcare Providers:https://www.ByteLight.Stunable/emerita/RT SARS-CoV-2 HCP Fact Sheet 51- 103827.pdfFact Sheet for Healthcare Patients:https://www.ByteLight.Stunable/emerita/RT SARS-CoV-2 Patient Fact Sheet EN 51-109737X2.pdfHIV1 RNA # Plas RADHA DL=20 2021-07-05 16:15:28 Test Item Value Reference Range Interpretation Comments HIV1 RNA SerPl Ql RADHA+probe NOT DETECTED Not detected (test code = 02832-1) This test utilizes FDA cleared ERICH AmpliPrep/ERICH TaqMan HIV-1 test 2.0 from [employer] which allows quantitation of viral loads between [...] patients with HIV-1 infection. CD4+CD8+ Cells NFr [id number] 13:12:03 Test Item Value Reference Range Interpretation Comments T-cell CD4 subset 480 cells/uL See_Comment [Automate d message] pnl Bld (test code The syste m which = 92728-1) generated this result transmitted ref erence range: 431-1,62 3. The reference range was not used to interpr et this result as normal/abnormal . CD3+CD4+ 1.54 ratio 0.86-2.05 Cells/CD3+CD8+ Cells Bld (test code = 81425-0) CD4+CD8+ Cells NFr 40.0 % 25.0-56.0 Bld (test code = 32608-8) RPR [id number]-[id number] 14:32:36 Test Item Value Reference Range Interpretation Comments T pallidum Ab Ser Ql Aggl (test NEGATIVE Negative, Equivocal code = 50724-1) Reagin+T pallidum IgG+IgM NEGATIVE Negative SerPl-Imp (test code = 12785-1) AG HEPATITIS B [id number] 11:26:00 Test Item Value Reference Range Interpretation Comments AG HEPATITIS B SURFACE (test NEGATIVE SCREEN NEGATIVE code = HBSAG) AB HEPATITIS A [id number] 03:08:00 Test Item Value Reference Range Interpretation Comments AB HEPATITIS A IGM (test code = HAVMAB) AB HEPATITIS B [id number] 03:08:00 Test Item Value Reference Range Interpretation Comments AB HEPATITIS B SURFACE 96.5 mIU/mL Immunity>9.9 Sta tus of Immunity (test code = HBSAB) Anti-HBs Level --- I ncons istent with Imm unity 0.0 - 9.9Consis tent with Immunity >9.9 AB HEPATITIS A [id number] 03:08:00 Test Item Value Reference Range Interpretation Comments AB HEPATITIS A IGM Negative Negative Performed At: (test code = HAVMAB) [facility] [id number] [place], [place] [id number] lauren Chapman MD Ph:[phone] AB HEPATITIS B [id number] 03:08:00 Test Item Value Reference Range Interpretation Comments AB HEPATITIS B SURFACE 96.5 mIU/mL Immunity>9.9 Sta tus of Immunity (test code = HBSAB) Anti-HBs Level --- I ncons istent with Imm unity 0.0 - 9.9Consis tent with Immunity >9.9 COVID 19 Asymptomatic IH [id number] 09:05:00 Test Item Value Reference Range Interpretation [...] in Respiratory specimen by RADHA with probe [id number] 10:30:29 Test Item Value Reference Range Interpretation Comments SARS-CoV-2 (COVID-19) RNA Not detected Not-Detected [Presence] in Respiratory specimen by RADHA with probe detection (test code = 73528-2) SARS-CoV-2 (COVID-19) RNA [Presence] in Respiratory specimen by RADHA with probe [id number] 18:12:42 Test Item Value Reference Range Interpretation Comments SARS-CoV-2 (COVID-19) RNA Not detected Not-Detected [Presence] in Respiratory specimen by RADHA with probe detection (test code = 84853-8) SARS-CoV-2 (COVID-19) RNA [Presence] in Respiratory specimen by RADHA with probe [id number] 12:55:22 Test Item Value Reference Range Interpretation Comments SARS-CoV-2 (COVID-19) RNA Not detected Not-Detected [Presence] in Respiratory specimen by RADHA with probe detection (test code = 20207-3) SARS-CoV-2 (COVID-19) RNA [Presence] in Respiratory specimen by RADHA with probe [id number] 23:46:30 Test Item Value Reference Range Interpretation Comments SARS-CoV-2 (COVID-19) RNA Not detected Not-Detected [Presence] in Respiratory specimen by RADHA with probe detection (test code = 68656-0) TROPONIN [id number] 23:28:00 Test Item Value Reference Range Interpretation [...] failure, acidosis, acute neurological disease, and persistent tachyarrhythmia.Braider Setter ID Patel GALLARDOASIC METABOLIC [id number] 23:26:00 Test Item Value Reference Range Interpretation [...] S NOT APPLICABLE FOR DIALYSIS PATIEN TS. Braider Setter ID Patel ODEN LB-TYPE NATRIURETIC FACTOR (BNP)2020-04-21 23:25:00 Test Item Value Reference Range Interpretation Comments B-TYPE NATRIURETIC PEPTIDE 1507 pg/mL 0-100 H (BEAKER) (test code = 700) Braider Setter ID - AKSHAT LPT/[id number] 23:09:00 Test Item Value Reference Range Interpretation [...] mechanical heart valves.CBC W/PLT COUNT & AUTO [id number] 22:49:00 Test Item Value Reference Range Interpretation [...] (test code = 2801) RAD, CHEST, 2 [id number] 22:26:00Reason for exam:->SHORTNESS OF BREATH FINAL REPORT [...] Signed: Edenilson Gutierrez Verified Date/Time: 04/21/2020 22:26:38 POCT-GLUCOSE [id number] 15:36:00 Test Item Value Reference Range Interpretation Comments POC-GLUCOSE METER 133 mg/dL 70-110 H : TESTED A T [facility] 6720 ([employer]) (test code = [facility], 1538) 21525: Braider Setter/Techni kush ID = [id number] for Wi lliams, Areiona POCT-GLUCOSE [id number] 12:38:00 Test Item Value Reference Range Interpretation Comments POC-GLUCOSE METER 100 mg/dL 70-110 : TESTED A T [facility] 6720 ([employer]) (test code = [facility], 1538) 98657: Braider Setter/Techni kush ID = [id number] for Wi lliams, Areiona [id number] 09:28:00 Test Item Value Reference Range Interpretation Comments PARTIAL THROMBOPLASTIN TIME 67.8 seconds 22.5-36.0 H (BEAKER) (test code = 760) [id number] 07:14:00 Test Item Value Reference Range Interpretation Comments PARTIAL THROMBOPLASTIN TIME 146.9 seconds 22.5-36.0 H (BEAKER) (test code = 760) CBC W/PLT COUNT & AUTO [id number] 05:40:00 Test Item Value Reference Range Interpretation [...] (BEAKER) (test code = 2801) BASIC METABOLIC [id number] 05:24:00 Test Item Value Reference Range Interpretation [...] S NOT APPLICABLE FOR DIALYSIS PATIEN TS. Braider Setter ID - LORENZO WPROTHROMBIN TIME/[id number] 04:52:00 Test Item Value Reference Range Interpretation [...] T [facility] 6720 (BEAKER) (test code = [facility], 1538) 02351: Braider Setter/Techni kush ID = [id number] for KATIA RAO [id number] 21:05:00 Test Item Value Reference Range Interpretation Comments PARTIAL THROMBOPLASTIN TIME 66.8 seconds 22.5-36.0 H (BEAKER) (test code = 760) [id number] 19:49:00 Test Item Value Reference Range Interpretation Comments PARTIAL THROMBOPLASTIN TIME > seconds 22.5-36.0 HH (BEAKER) (test code = 760) POCT-GLUCOSE [id number] 17:09:00 Test Item Value Reference Range Interpretation Comments POC-GLUCOSE METER 145 mg/dL 70-110 H : TESTED A T [facility] 6720 (BEAKER) (test code = [facility], 1538) 06681: Braider Setter/Techni kush ID = [id number] for Christina sher POCT-GLUCOSE [id number] 12:10:00 Test Item Value Reference Range Interpretation Comments POC-GLUCOSE METER 113 mg/dL 70-110 H : TESTED A T [facility] 6720 (BEAKER) (test code = [facility], 1538) 88298: Braider Setter/Techni kush ID = [id number] for Christina Chisholm [id number] 11:50:00 Test Item Value Reference Range Interpretation Comments PARTIAL THROMBOPLASTIN TIME 96.6 seconds 22.5-36.0 H (BEAKER) (test code = 760) POCT-GLUCOSE [id number] 08:28:00 Test Item Value Reference Range Interpretation Comments POC-GLUCOSE METER 150 mg/dL 70-110 H : TESTED A T [facility] 6720 (BEAKER) (test code = [facility], 1538) 87526: Braider Setter/Techni kush ID = [id number] for Eugenia Chisholmia BASIC METABOLIC [id number] 06:15:00 Test Item Value Reference Range Interpretation [...] S NOT APPLICABLE FOR DIALYSIS PATIEN TS. Braider Setter ID - BSCBC W/PLT COUNT & AUTO [id number] 06:12:00 Test Item Value Reference Range Interpretation [...] 0-1 PERCENT (BEAKER) (test code = 2801) [id number] 05:43:00 Test Item Value Reference Range Interpretation Comments PARTIAL THROMBOPLASTIN TIME 61.8 seconds 22.5-36.0 H (BEAKER) (test code = 760) PROTHROMBIN [id number] 05:42:00 Test Item Value Reference Range Interpretation [...] mg/dL 70-110 H : TESTED A T [facility] 6720 (BEAKER) (test code = [facility] [place], 1538) 04326: Braider Setter/Techni kush ID = [id number] for AN BENITA ERNANDEZ [id number] 22:49:00 Test Item Value Reference Range Interpretation Comments PARTIAL THROMBOPLASTIN TIME 86.0 seconds 22.5-36.0 H (BEAKER) (test code = 760) [id number] 15:29:00 Test Item Value Reference Range Interpretation [...] INR is2.5-3.5 for patients wiht mechanical heart valves.[id number] 15:29:00 Test Item Value Reference Range Interpretation Comments PARTIAL THROMBOPLASTIN TIME 90.0 seconds 22.5-36.0 H (BEAKER) (test code = 760) BASIC METABOLIC [id number] 12:20:00 Test Item Value Reference Range Interpretation Comments SODIUM (BEAKER) 135 meq/L 136-145 L (test code = 381) POTASSIUM (BEAKER) 3.6 meq/L 3.5-5.1 (test code = 379) CHLORIDE (BEAKER) 96 meq/L 98-107 L (test code = 382) CO2 (BEAKER) (test 25 meq/L code = 355) BLOOD UREA NITROGEN 24 [...] S NOT APPLICABLE FOR DIALYSIS PATIEN TS. Braider Setter ID - [place] FCBC W/PLT COUNT & AUTO [id number] 07:29:00 Test Item Value Reference Range Interpretation [...] 0-1 PERCENT (BEAKER) (test code = 2801) [id number] 07:20:00 Test Item Value Reference Range Interpretation Comments PARTIAL THROMBOPLASTIN TIME 61.2 seconds 22.5-36.0 H (BEAKER) (test code = 760) While on warfarin.BASIC METABOLIC [id number] 07:06:00 Test Item Value Reference Range Interpretation [...] S NOT APPLICABLE FOR DIALYSIS PATIEN TS. Braider Setter ID - ANTONIA FPROTHROMBIN TIME/[id number] 06:37:00 Test Item Value Reference Range Interpretation [...] for patients wiht mechanical heart valves.While on warfarin.[id number] 23:03:00 Test Item Value Reference Range Interpretation Comments PARTIAL THROMBOPLASTIN TIME 54.4 seconds 22.5-36.0 H (JARROD) (test code = 760) POCT-GLUCOSE [id number] 22:30:00 Test Item Value Reference Range Interpretation Comments POC-GLUCOSE METER 96 mg/dL 70-110 : TESTED A T [facility] 6720 ([employer]) (test code = [facility] codetag [facility], 1538) [id number]: Braider Setter/Techni kush ID = [id number] for BENITA MASSEY POCT-GLUCOSE [id number] 15:59:00 Test Item Value Reference Range Interpretation Comments POC-GLUCOSE METER 133 mg/dL 70-110 H : TESTED A T [facility] 67[facility] ([employer]) (test code = [facility] codetag [facility], 1538) 85288: Braider Setter/Techni kush ID = [id number] for Julius Raoiona [id number] 15:38:00 Test Item Value Reference Range Interpretation Comments PARTIAL THROMBOPLASTIN TIME 88.8 seconds 22.5-36.0 H ([employer]) (test code = 760) POCT-GLUCOSE [id number] 12:08:00 Test Item Value Reference Range Interpretation Comments POC-GLUCOSE METER 130 mg/dL 70-110 H : TESTED A T [facility] 6720 ([employer]) (test code = [facility] codetag [facility], 1538) 67011: Braider Setter/Techni kush ID = [id number] for Wi thaddeus, Areiona PROTHROMBIN TIME/[id number] 11:48:00 Test Item Value Reference Range Interpretation Comments PROTIME ([employer]) (test code = 22.5 seconds 11.9-14.2 H 759) INR (BEAKER) (test code = 370) 2.0 <=5.9 Effective 01/28/2019: PT Reference Range ChangeNew: 11.9-14.2 Previous: 11.7- 14.7RECOMMENDED COUMADIN/WARFARIN INR THERAPY RANGESSTANDARD DOSE: 2.0-3.0 Includes: PROPHYLAXIS for venous thrombosis, systemic embolization; TREATMENT for venous thrombosis and/or pulmonary embolus.HIGH RISK: Target INR is2.5-3.5 for patients wiht mechanical heart valves.[id number] 09:34:00 Test Item Value Reference Range Interpretation Comments PARTIAL THROMBOPLASTIN TIME 74.6 seconds 22.5-36.0 H (BEAKER) (test code = 760) CBC W/PLT COUNT & AUTO [id number] 01:34:00 Test Item Value Reference Range Interpretation [...] (BEAKER) (test code = 2801) BASIC METABOLIC [id number] 01:29:00 Test Item Value Reference Range Interpretation [...] S NOT APPLICABLE FOR DIALYSIS PATIEN TS. Braider Setter ID - PIAYA [id number] 01:13:00 Test Item Value Reference Range Interpretation Comments PARTIAL THROMBOPLASTIN TIME 56.4 seconds 22.5-36.0 H (BEAKER) (test code = 760) POCT-GLUCOSE [id number] 23:59:00 Test Item Value Reference Range Interpretation Comments POC-GLUCOSE METER 134 mg/dL 70-110 H : TESTED A T [facility] 6720 (BEAKER) (test code = [facility], 153) [address]: Braider Setter/Techni kush ID = [id number] for SCOOTER MIRZA [id number] 18:52:00 Test Item Value Reference Range Interpretation Comments PARTIAL THROMBOPLASTIN TIME 47.3 seconds 22.5-36.0 H (BEAKER) (test code = 760) [id number] 18:18:00 Test Item Value Reference Range Interpretation Comments PARTIAL THROMBOPLASTIN TIME > seconds 22.5-36.0 HH (BEAKER) (test code = 760) POCT-GLUCOSE [id number] 18:15:00 Test Item Value Reference Range Interpretation Comments POC-GLUCOSE METER 143 mg/dL 70-110 H : TESTED A T [facility] 6720 (BEAKER) (test code = [facility], 153) 828[address]: Braider Setter/Techni kush ID = [id number] for DO BBINS, RANDI POCT-GLUCOSE [id number] 12:15:00 Test Item Value Reference Range Interpretation Comments POC-GLUCOSE METER 123 mg/dL 70-110 H : TESTED A T [facility] 6720 (BEAKER) (test code = [facility], 153) 12587: Braider Setter/Techni kush ID = [id number] for DO BBINS, RANDI [id number] 11:28:00 Test Item Value Reference Range Interpretation Comments PARTIAL THROMBOPLASTIN TIME 57.3 seconds 22.5-36.0 H (BEAKER) (test code = 760) POCT-GLUCOSE [id number] 06:49:00 Test Item Value Reference Range Interpretation Comments POC-GLUCOSE METER 86 mg/dL 70-110 : TESTED A T [facility] 6720 (BEAKER) (test code = [facility], 153) [address]: Braider Setter/Techni kush ID = [id number] for SCOOTER MAYA BASIC METABOLIC [id number] 06:19:00 Test Item Value Reference Range Interpretation [...] S NOT APPLICABLE FOR DIALYSIS PATIEN TS. Braider Setter ID - PIAYA LCBC W/PLT COUNT & AUTO [id number] 04:57:00 Test Item Value Reference Range Interpretation [...] PERCENT (BEAKER) (test code = 2801) POCT-GLUCOSE [id number] 02:25:00 Test Item Value Reference Range Interpretation Comments POC-GLUCOSE METER 69 mg/dL 70-110 L : TESTED A T [facility] 6720 (BEAKER) (test code = FOSTER Humberto [facility], 1538) [address]: Braider Setter/Techni kush ID = [id number] for KEIT H, RADHA FL, FLUORO, NON-SPECIFIC, UP TO 1 [id number] 01:47:00Reason for exam:- >orif right femurFluoroscopic unit utilized for a procedure performed in the OR. No interpretation was requested. Refer to the operative report for findings. Refer to PACS for patient radiation dose information.[id number] 20:21:00 Test Item Value Reference Range Interpretation Comments PARTIAL THROMBOPLASTIN TIME 41.1 seconds 22.5-36.0 H (BEAKER) (test code = 760) 6 hours after starting heparin infusion and as indicated per sliding scalePOCT- GLUCOSE [id number] 17:57:00 Test Item Value Reference Range Interpretation Comments POC-GLUCOSE METER 82 mg/dL 70-110 : TESTED A T [facility] 6720 (BEAKER) (test code = [place], 1538) 477[address]: Braider Setter/Techni kush ID = [id number] for ALMA DELIA PATHAK [id number] 17:14:00 Test Item Value Reference Range Interpretation Comments FERRITIN (BEAKER) (test code = 5182.19 ng/mL 5.00-275.00 H 361) Braider Setter ID - JOEL RAMOS, TIBC, % SAT. (WITHOUT FERRITIN)2020-02-27 16:01:00 Test Item Value Reference Range Interpretation Comments IRON (BEAKER) (test code = 547) 125.0 ug/dL 40.0-160.0 TOTAL IRON BINDING CAPACITY 219 ug/dL 250-450 L (BEAKER) (test code = 769) IRON % SATURATION (2) (BEAKER) 57 % 20-55 H (test code = 2590) Braider Setter ID - JOEL [id number] 12:54:00 Test Item Value Reference Range Interpretation Comments PARTIAL THROMBOPLASTIN TIME 41.5 seconds 22.5-36.0 H (BEAKER) (test code = 760) Prior to initiating heparinPLATELET [id number] 12:51:00 Test Item Value Reference Range Interpretation Comments PLATELET COUNT (BEAKER) (test 116 K/CU MM 150-450 L code = 756) Braider Setter ID - Anibal clotSARS-COV2/RT-PCR ([facility])2020-02-27 12:46:00 Test Item Value Reference Range Interpretation Comments SARS-COV2/RT-PCR (test code = Negative Not Detected, Negative [id number]) SARS-COV-2 PERFORMING LAB [facility] (test code = 6690055) Negative result for this test determines that [...] 564(g) of the Act.Fact Sheet for Healthcare Providers:https://www.[employer]/sites/default/files/product/documents/Fact_Shee h_XX_Pacghadit_Mmem_WQUY-LvJ-8.pdfFact Sheet for Healthcare Patients:https://www.[employer]/sites/default/files/product/ documents/Rzxq_Jqzqj_Uhofdrzd_Acct_CITG-SrF-7.pdfPerforming Laboratory:[facility], [place] [address]IIBN-[id number] METER 2020-02-27 12:12:00 Test Item Value Reference Range Interpretation Comments POC-GLUCOSE METER 90 mg/dL 70-110 : TESTED A T [facility] 6720 (JARROD) (test code = FOSTER Paul [facility], 1538) 278[address]: Braider Setter/Techni kush ID = [id number] for ANTONIO SELENA YI HEPATITIS B SURFACE [id number] 11:32:00 Test Item Value Reference Range Interpretation Comments HEPATITIS B SURFACE ANTIGEN (2) Nonreactive Nonreactive (GAELAKER) (test code = 2585) Specimen is considered negative for HBsAg.RAD, WRIST, 2 VIEWS, [id number] 09:19:00Reason for exam:->fall, immbolityFINAL REPORT TECHNIQUE: Frontal, oblique, and lateral views of the left wrist. INDICATION: Fall immobility. COMPARISON: None. FINDINGS:No acute fractures or dislocations.Joint spaces are within normal limits.There are atherosclerotic calcifications of the vessels. Surgical clipsproject over the distal radius.. IMPRESSION:No acute osseous abnormality. Signed: Bhavin Artis Verified Date/Time: 02/27/2020 09:19:08 Reading Location: [address] Body ReadingRoom [id number] 08:30:00 Test Item Value Reference Range Interpretation Comments POTASSIUM (BEAKER) (test code = 5.0 meq/L 3.5-5.1 379) Braider Setter ID - AKSHAT LRAD, PELVIS, 1 OR 2 [id number] 07:23:00Reason for exam:->femoral neck fxFINAL REPORT RAD, [...] Lisa Verified Date/Time: 02/27/2020 07:23:52 Reading Location: [place] [address]V Neuro Reading Room RAD, HIP, 2 VIEWS, [id number] 07:23:00Reason for exam:- >femoral neck fractureFINAL REPORT [...] and ileoileal lines are intact. Signed: Radha Lisaort Verified Date/Time: 02/27/2020 07:23:52 Reading Location: [facility] B1 C013V Neuro Reading Room POCT-GLUCOSE [id number] 06:26:00 Test Item Value Reference Range Interpretation Comments POC-GLUCOSE METER 72 mg/dL 70-110 : TESTED A T [facility] 6720 (BEAKER) (test code = [place], 1538) [address]: Braider Setter/Techni kush ID = [id number] for SCOOTER MAYA COMPREHENSIVE METABOLIC [id number] 02:44:00 Test Item Value Reference Range Interpretation [...] S NOT APPLICABLE FOR DIALYSIS PATIEN TS. Braider Setter ID - AKSHAT LPROTHROMBIN TIME/[id number] 02:03:00 Test Item Value Reference Range Interpretation [...] INR is2.5-3.5 for patients wiht mechanical heart valves.[id number] 01:56:00 Test Item Value Reference Range Interpretation Comments PHOSPHORUS (BEAKER) (test code = 7.3 mg/dL 2.3-4.7 H 604) Braider Setter ID - AKSHAT [id number] 01:56:00 Test Item Value Reference Range Interpretation Comments MAGNESIUM (BEAKER) (test code = 1.9 mg/dL 1.6-2.6 627) Braider Setter ID - AKSHAT LCBC W/PLT COUNT & AUTO [id number] 01:33:00 Test Item Value Reference Range Interpretation [...] (test code = 2801) AFB CULTURE + [id number] 07:33:00 Test Item Value Reference Range Interpretation Comments CULTURE (BEAKER) (test No acid-fast bacilli code = 1095) isolated in 42 days AFB SMEAR (BEAKER) No acid fast bacilli (test code = 994) seen FUNGUS CULTURE + [id number] 17:26:00 Test Item Value Reference Range Interpretation Comments CULTURE (BEAKER) (test No fungus isolated in code = 1095) 28 days FUNGUS SMEAR (BEAKER) No fungi seen (test code = 1406) PROTHROMBIN [id number] 00:05:00 Test Item Value Reference Range Interpretation Comments PT PATIENT (test code = PTP) 18.2 SECONDS 9.3-12.9 H INTERNATIONAL NORMAL RATIO 1.57 INR Unit 0.8-1.2 H (test code = INR) POCT-GLUCOSE [id number] 13:35:00 Test Item Value Reference Range Interpretation Comments POC-GLUCOSE METER 116 mg/dL 70-110 H TESTED AT [facility] 6720 ([facility]) (test code = FOSTER Paul [facility] 1538) [address] POCT-GLUCOSE [id number] 08:54:00 Test Item Value Reference Range Interpretation Comments POC-GLUCOSE METER 99 mg/dL 70-110 TESTED AT [facility] 6720 ([facility]) (test code = FOSTER Paul [facility] [address] 1538) [id number] 06:34:00 Test Item Value Reference Range Interpretation Comments PARTIAL THROMBOPLASTIN TIME 46.7 seconds 22.5-36.0 H ([facility]) (test code = 760) While on warfarin.PROTHROMBIN TIME/[id number] 06:33:00 Test Item Value Reference Range Interpretation Comments PROTIME ([facility]) (test code = 26.5 seconds 11.7-14.7 H 759) [facility] ([facility] code = 370) 2.6 <=5.9 RECOMMENDED [...] H (BEAKER) (test code = 413) POCT-GLUCOSE [id number] 21:38:00 Test Item Value Reference Range Interpretation Comments POC-GLUCOSE METER 192 mg/dL 70-110 H TESTED AT [facility] 6720 ([facility]) (test code = [place] 1538) [address] POCT-GLUCOSE [id number] 13:01:00 Test Item Value Reference Range Interpretation Comments POC-GLUCOSE METER 200 mg/dL 70-110 H TESTED AT [facility] 6720 ([facility]) (test code = [facility] 1538) [address] POCT-GLUCOSE [id number] 08:00:00 Test Item Value Reference Range Interpretation Comments POC-GLUCOSE METER 123 mg/dL 70-110 H TESTED AT [facility] 6720 ([facility]) (test code = [place] 1538) [address] [id number] 06:40:00 Test Item Value Reference Range Interpretation Comments PARTIAL THROMBOPLASTIN TIME 83.1 seconds 22.5-36.0 H (AKER) (test code = 760) [id number] 05:54:00 Test Item Value Reference Range Interpretation Comments PARTIAL THROMBOPLASTIN TIME > seconds 22.5-36.0 HH (BEAKER) (test code = 760) PROTHROMBIN [id number] 05:30:00 Test Item Value Reference Range Interpretation Comments PROTIME ([facility]) (test code = 24.1 seconds 11.7-14.7 H 759) INR (AKER) (test code = 370) 2.3 <=5.9 RECOMMENDED [...] (BEAKER) (test code = 413) BASIC METABOLIC [id number] 05:10:00 Test Item Value Reference Range Interpretation [...] APPLICABLE FOR DIALYSIS PATIEN TS. OCCULT BLOOD, [id number] 23:46:00 Test Item Value Reference Range Interpretation Comments FECAL OCCULT BLOOD (BEAKER) (test Negative Negative code = 618) POCT-GLUCOSE [id number] 22:52:00 Test Item Value Reference Range Interpretation Comments POC-GLUCOSE METER 192 mg/dL 70-110 H TESTED AT [facility] 6720 (BEAKER) (test code = F[place]ER [place] 1538) [address] POCT-GLUCOSE [id number] 17:11:00 Test Item Value Reference Range Interpretation Comments POC-GLUCOSE METER 149 mg/dL 70-110 [facility] ([facility]ER[facility] (test code = [place] 1538) [address] PROTHROMBIN [id number] 13:00:00 Test Item Value Reference Range Interpretation Comments PROTIME (JARROD) (test code = 19.9 seconds 11.7-14.7 H 759) INR ([facility]) (test code = 370) 1.8 <=5.9 RECOMMENDED COUMADIN/WARFARIN INR THERAPY RANGESSTANDARD DOSE: 2.0 - 3.0 Includes: PROPHYLAXIS forvenous thrombosis, systemic embolization; TREATMENT for venous thrombosis and/or pulmonary embolus.HIGH RISK: Target INR is 2.5-3.5 for patients with mechanical heart valves.While on warfarin.POCT-GLUCOSE METER 2019-01-04 12:14:00 Test Item Value Reference Range Interpretation Comments POC-GLUCOSE METER 134 mg/dL 70-110 H TESTED AT [place] [address] ([facility]) (test code = [facility] 1538) [address] RAD, CHEST, 1 VIEW, NON [id number] 08:02:00Reason for exam:->Post opShould this be performed [...] MDReport Verified Date/Time: 01/04/2019 08:02:18 Reading Location: [facility] B1 C013W Consult Reading Room Electronicallysigned by: EDENILSON BLOOM M.D. on 01/04/2019 08:02 AMPOCT-GLUCOSE [id number] 07:42:00 Test Item Value Reference Range Interpretation Comments POC-GLUCOSE METER 98 mg/dL 70-110 TESTED AT [place] [address] ([facility]) (test code = FOSTER Paul [facility] [address] 1538) BASIC METABOLIC [id number] 07:28:00 Test Item Value Reference Range Interpretation Comments SODIUM ([facility]) 136 meq/L 136-145 (test code = 381) POTASSIUM ([facility]) 4.1 meq/L 3.5-5.1 (test code = 379) [...] 0-0 H (BEAKER) (test code = 413) [id number] 06:08:00 Test Item Value Reference Range Interpretation Comments PARTIAL THROMBOPLASTIN TIME 70.6 seconds 22.5-36.0 H (ZOILA) (test code = 760) [id number] 23:32:00 Test Item Value Reference Range Interpretation Comments PARTIAL THROMBOPLASTIN TIME 77.2 seconds 22.5-36.0 H ([facility]) (test code = 760) POCT-GLUCOSE [id number] 21:55:00 Test Item Value Reference Range Interpretation Comments POC-GLUCOSE METER 150 mg/dL 70-110 H TESTED AT [place] [address] ([facility]) (test code = [place] 1538) [address] [id number] 18:25:00 Test Item Value Reference Range Interpretation Comments PARTIAL THROMBOPLASTIN TIME 71.2 seconds 22.5-36.0 H ([facility]) (test code = 760) POCT-GLUCOSE [id number] 13:45:00 Test Item Value Reference Range Interpretation Comments POC-GLUCOSE METER 375 mg/dL 70-110 H Notified R Toy PÉREZ/TESTED ([facility]) (test code = AT [address] 1538) [facility] [address] [id number] 10:26:00 Test Item Value Reference Range Interpretation Comments PARTIAL THROMBOPLASTIN TIME 94.0 seconds 22.5-36.0 H ([facility]) (test code = 760) While on warfarin.PROTHROMBIN TIME/[id number] 10:24:00 Test Item Value Reference Range Interpretation Comments PROTIME (ZOILA) (test code = 19.3 seconds 11.7-14.7 H 759) INR ([facility]) (test code = 370) 1.7 <=5.9 RECOMMENDED COUMADIN/WARFARIN INR THERAPY RANGESSTANDARD DOSE: 2.0 - 3.0 Includes: PROPHYLAXIS forvenous thrombosis, systemic embolization; TREATMENT for venous thrombosis and/or pulmonary embolus.HIGH RISK: Target INR is 2.5-3.5 for patients with mechanical heart valves.While on warfarin.POCT-GLUCOSE METER 2019-01-03 08:36:00 Test Item Value Reference Range Interpretation Comments POC-GLUCOSE METER 124 mg/dL 70-110 H TESTED AT [place] [address] (BEAKER) (test code = [place] 1538) [address] RAD, CHEST, 1 VIEW, NON [id number] 08:19:00Reason for exam:->Post opShould this be performed [...] Lisa Verified Date/Time: 01/03/2019 08:19:51 Reading Location: [address] Neuro Reading Room [id number] 03:31:00 Test Item Value Reference Range Interpretation Comments PARTIAL THROMBOPLASTIN TIME 64.2 seconds 22.5-36.0 H (BEAKER) (test code = 760) BASIC METABOLIC [id number] 03:21:00 Test Item Value Reference Range Interpretation [...] H (BEAKER) (test code = 413) POCT-GLUCOSE [id number] 22:54:00 Test Item Value Reference Range Interpretation Comments POC-GLUCOSE METER 206 mg/dL 70-110 H TESTED AT [place] [address] ([facility]) (test code = F[place]ER [place] 1538) [address] [id number] 19:36:00 Test Item Value Reference Range Interpretation Comments PARTIAL THROMBOPLASTIN TIME 79.3 seconds 22.5-36.0 H ([facility]) (test code = 760) POCT-GLUCOSE [id number] 17:59:00 Test Item Value Reference Range Interpretation Comments POC-GLUCOSE METER 186 mg/dL 70-110 H TESTED AT [place] [address] ([facility]) (test code = F[place] 1538) [address] POCT-GLUCOSE [id number] 13:54:00 Test Item Value Reference Range Interpretation Comments POC-GLUCOSE METER 139 mg/dL 70-110 H TESTED AT [facility] 6720 ([facility]) (test code = FOSTER Paul [place] 1538) [address] POCT-GLUCOSE [id number] 13:05:00 Test Item Value Reference Range Interpretation Comments POC-GLUCOSE METER 163 mg/dL 70-110 H TESTED AT [facility] 6720 ([facility]) (test code = FOSTER Paul [place] 1538) [address] [id number] 12:49:00 Test Item Value Reference Range Interpretation Comments PARTIAL THROMBOPLASTIN TIME 64.9 seconds 22.5-36.0 H ([facility]) (test code = 760) OCCULT BLOOD, [id number] 12:31:00 Test Item Value Reference Range Interpretation Comments FECAL OCCULT BLOOD ([facility]) (test Negative Negative code = 618) RAD, CHEST, 1 VIEW, NON [id number] 10:37:00Reason for exam:->Post opShould this be performed [...] Date/Time: 01/02/2019 10:37:35 Reading Loc ation: [facility] Radiology Reading Room POCT-GLUCOSE [id number] 08:07:00 Test Item Value Reference Range Interpretation Comments POC-GLUCOSE METER 107 mg/dL 70-110 TESTED AT [facility] 6720 ([facility]) (test code = FOSTER Paul [facility] 1538) [address] [id number] 04:48:00 Test Item Value Reference Range Interpretation Comments PARTIAL THROMBOPLASTIN TIME 106.0 seconds 22.5-36.0 H (BEAKER) (test code = 760) While on warfarin.BASIC METABOLIC [id number] 04:48:00 Test Item Value Reference Range Interpretation [...] NOT APPLICABLE FOR DIALYSIS PATIEN TS. PROTHROMBIN [id number] 04:39:00 Test Item Value Reference Range Interpretation [...] 0-0 (BEAKER) (test code = 413) POCT-GLUCOSE [id number] 22:17:00 Test Item Value Reference Range Interpretation Comments POC-GLUCOSE METER 117 mg/dL 70-110 H TESTED AT [facility] 6720 ([facility]) (test code = FOSTER Paul [place] 1538) [address] RAD, CHEST, 1 VIEW, NON [id number] 19:40:00Reason for exam:->Post opShould this be performed [...] Bloom Verified Date/Time: 01/01/2019 19:40:01 Reading Location: [facility] C013W Consult Reading Room POCT-GLUCOSE [id number] 18:22:00 Test Item Value Reference Range Interpretation Comments POC-GLUCOSE METER 159 mg/dL 70-110 H TESTED AT [facility] 6720 ([facility]) (test code = [facility] Humberto [facility] 1538) [address] POCT-GLUCOSE [id number] 14:12:00 Test Item Value Reference Range Interpretation Comments POC-GLUCOSE METER 135 mg/dL 70-110 H TESTED AT [place] [address] ([facility]) (test code = [facility] 1538) [address] HEPATITIS B SURFACE [id number] 11:52:00 Test Item Value Reference Range Interpretation Comments HEPATITIS B SURFACE ANTIGEN (2) Nonreactive Nonreactive ([facility]) (test code = 2585) POCT-GLUCOSE [id number] 08:40:00 Test Item Value Reference Range Interpretation Comments POC-GLUCOSE METER 85 mg/dL 70-110 TESTED AT [place] [address] ([facility]) (test code = [facility] [address] 1538) BASIC METABOLIC [id number] 04:17:00 Test Item Value Reference Range Interpretation [...] S NOT APPLICABLE FOR DIALYSIS PATIEN TED. [id number] 03:40:00 Test Item Value Reference Range Interpretation Comments PARTIAL THROMBOPLASTIN TIME 84.1 seconds 22.5-36.0 H (BEAKER) (test code = 760) While on warfarin.PROTHROMBIN TIME/[id number] 03:39:00 Test Item Value Reference Range Interpretation [...] 0-0 (BEAKER) (test code = 413) POCT-GLUCOSE [id number] 22:08:00 Test Item Value Reference Range Interpretation Comments POC-GLUCOSE METER 194 mg/dL 70-110 H TESTED AT [facility] 6720 ([facility]) (test code = FOSTER Paul [facility] 1538) [address] POCT-GLUCOSE [id number] 22:03:00 Test Item Value Reference Range Interpretation Comments POC-GLUCOSE METER 203 mg/dL 70-110 H TESTED AT [place] [address] ([facility]) (test code = FOSTER Paul [facility] 1538) [address] POCT-GLUCOSE [id number] 21:42:00 Test Item Value Reference Range Interpretation Comments POC-GLUCOSE METER 42 mg/dL 70-110 L TESTED AT [place] [address] ([facility]) (test code = FOSTER Paul [facility] [address] 1538) [id number] 21:35:00 Test Item Value Reference Range Interpretation Comments PARTIAL THROMBOPLASTIN TIME 80.4 seconds 22.5-36.0 H ([facility]) (test code = 760) POCT-GLUCOSE [id number] 18:03:00 Test Item Value Reference Range Interpretation Comments POC-GLUCOSE METER 144 mg/dL 70-110 H TESTED AT [place] [address] ([facility]) (test code = [facility] Humberto [facility] 1538) [address] TISSUE [id number] 16:33:00Surgical Pathology Report Case: [id number] Authorizing Provider: Enmanuel Sharma Collected: 12/26/2018 1537 MD Liban OrderingLocation: [address] Received: 12/29/2018 0814 Service Pathologist: Brigida [...] stains. GMSImmunohistochemistry technical testing was performed at [facility] where it was developed and [...] toperform high complexity clinical laboratory testing.CPT CODE: [id number] electronically signed by Brigida Parks MD on [...] ARE NEGATIVE Signing Pathologist Direct Phone Line: [phone] signed by Brigida Parks MD on 12/30/2018 at 6:43 PMPreliminary result electronically signed by Brigida Parks MD on 12/29/2018 at 4:54 [id number] X 2; [id number]; [id number]; 69127 X 2Upper endoscopy, biopsyPreoperative and postoperative diagnosis: [...] AND CMVImmunohistochemistry technical testing was performed at [facility] where it was developed and [...] qualified toperform high complexity clinical laboratory testing.POCT-GLUCOSE [id number] 13:57:00 Test Item Value Reference Range Interpretation Comments POC-GLUCOSE METER 178 mg/dL 70-110 H TESTED AT [facility] 67 ([facility]) (test code = FOSTER Paul [facility] 1538) [address] [id number] 12:54:00 Test Item Value Reference Range Interpretation Comments PARTIAL THROMBOPLASTIN TIME 69.4 seconds 22.5-36.0 H ([facility]) (test code = 760) RAD, CHEST, 1 VIEW, NON [id number] 09:26:00Reason for exam:->Post opShould this be performed [...] mid to lower lung. Signed: Dom Christianson [facility] Verified Date/Time: 12/31/2018 09:26:31 Reading Location: [facility] Radiology Reading Room POCT-GLUCOSE [id number] 09:01:00 Test Item Value Reference Range Interpretation Comments POC-GLUCOSE METER 162 mg/dL 70-110 H TESTED AT [facility] 6720 ([facility]) (test code = FOSTER Paul [facility] 1538) [address] BASIC METABOLIC [id number] 06:50:00 Test Item Value Reference Range Interpretation Comments SODIUM ([facility]) 132 meq/L 136-145 L (test code = [...] NOT APPLICABLE FOR DIALYSIS PATIEN TS. PROTHROMBIN TIME/[id number] 06:38:00 Test Item Value Reference Range Interpretation Comments PROTIME (BEAKER) (test code = 19.1 seconds 11.7-14.7 H 759) INR (BEAKER) (test code = 370) 1.7 <=5.9 RECOMMENDED COUMADIN/WARFARIN INR THERAPY RANGESSTANDARD DOSE: 2.0 - 3.0 Includes: PROPHYLAXIS forvenous thrombosis, systemic embolization; TREATMENT for venous thrombosis and/or pulmonary embolus.HIGH RISK: Target INR is 2.5-3.5 for patients with mechanical heart valves.While on warfarin.[id number] 06:37:00 Test Item Value Reference Range Interpretation [...] 40.1-51.0 L 411) MEAN CORPUSCULAR VOLUME (AKER) 101.6 fL 79.0-92.2 H (test code = 753) MEAN CORPUSCULAR HEMOGLOBIN 32.2 pg 25.7-32.2 (AKER) (test code = 751) MEAN CORPUSCULAR HEMOGLOBIN CONC 31.7 GM/DL 32.3-36.5 L (AKER) (test code = 752) RED CELL DISTRIBUTION WIDTH 15.9 % 11.6-14.4 H (AKER) (test code = 412) PLATELET COUNT ([facility]) (test 156 K/CU MM 150-450 code = 756) MEAN PLATELET VOLUME (AKER) 8.7 fL 9.4-12.4 L (test code = 754) NUCLEATED RED BLOOD CELLS 0 /100 WBC 0-0 ([facility]) (test code = 413) POCT-GLUCOSE [id number] 00:45:00 Test Item Value Reference Range Interpretation Comments POC-GLUCOSE METER 124 mg/dL 70-110 H TESTED AT [place] [address] ([facility]) (test code = FOSTER Paul [facility] 1538) [address] [id number] 19:14:00 Test Item Value Reference Range Interpretation Comments PARTIAL THROMBOPLASTIN TIME 57.8 seconds 22.5-36.0 H ([facility]) (test code = 760) POCT-GLUCOSE [id number] 17:53:00 Test Item Value Reference Range Interpretation Comments POC-GLUCOSE METER 133 mg/dL 70-110 H TESTED AT [place] [address] ([facility]) (test code = FOSTER Paul [facility] 1538) [address] POCT-GLUCOSE [id number] 13:19:00 Test Item Value Reference Range Interpretation Comments POC-GLUCOSE METER 147 mg/dL 70-110 H TESTED AT [place] [address] ([facility]) (test code = FOSTER Paul [facility] 1538) [address] [id number] 12:43:00 Test Item Value Reference Range Interpretation Comments PARTIAL THROMBOPLASTIN TIME 57.0 seconds 22.5-36.0 H ([facility]) (test code = 760) [id number] 10:17:00 Test Item Value Reference Range Interpretation Comments PARTIAL THROMBOPLASTIN TIME 134.5 seconds 22.5-36.0 H (AKER) (test code = 760) POCT-GLUCOSE [id number] 07:43:00 Test Item Value Reference Range Interpretation Comments POC-GLUCOSE METER 107 mg/dL 70-110 TESTED AT [facility] 6720 (BEAKER) (test code = [place] 1538) [address] BASIC METABOLIC [id number] 06:46:00 Test Item Value Reference Range Interpretation [...] PATIEN TS. RAD, CHEST, 1 VIEW, NON [id number] 06:25:00Reason for exam:->Post opShould this be performed [...] Lisa Verified Date/Time: 12/30/2018 06:25:51 Reading Location: [facility] C0[facility] Neuro Reading Room PROTHROMBIN TIME/[id number] 06:06:00 Test Item Value Reference Range Interpretation [...] 0-0 (BEAKER) (test code = 413) POCT-GLUCOSE [id number] 22:19:00 Test Item Value Reference Range Interpretation Comments POC-GLUCOSE METER 179 mg/dL 70-110 H TESTED AT [facility] 6720 ([facility]) (test code = FOSTER Paul [place] 1538) [address] POCT-GLUCOSE [id number] 17:39:00 Test Item Value Reference Range Interpretation Comments POC-GLUCOSE METER 181 mg/dL 70-110 H TESTED AT [facility] 6720 ([facility]) (test code = FOSTER Paul [place] 1538) [address] POCT-GLUCOSE [id number] 13:14:00 Test Item Value Reference Range Interpretation Comments POC-GLUCOSE METER 102 mg/dL 70-110 TESTED AT [facility] 6720 ([facility]) (test code = FOSTER Paul [facility] 1538) [address] RAD, CHEST, 1 VIEW, NON [id number] 08:56:00Reason for exam:->Post opShould this be performed [...] Bloom Verified Date/Time: 12/29/2018 08:56:32 Reading Location: [facility] Radiology Reading Room Electronically signed by: EDENILSON BLOOM M.D.on 12/29/2018 08:56 AMPOCT-GLUCOSE [id number] 07:53:00 Test Item Value Reference Range Interpretation Comments POC-GLUCOSE METER 135 mg/dL 70-110 H TESTED AT [facility] 6720 ([facility]) (test code = FOSTER Paul [facility] 1538) [address] [id number] 06:45:00 Test Item Value Reference Range Interpretation Comments PARTIAL THROMBOPLASTIN TIME 83.5 seconds 22.5-36.0 H ([facility]) (test code = 760) While on warfarin.PROTHROMBIN TIME/[id number] 06:44:00 Test Item Value Reference Range Interpretation Comments PROTIME ([facility]) (test code = 17.1 seconds 11.7-14.7 H [...] MEAN CORPUSCULAR HEMOGLOBIN 32.7 pg 25.7-32.2 H ([facility]) (test code = 751) MEAN CORPUSCULAR HEMOGLOBIN CONC 32.7 GM/DL 32.3-36.5 ([facility]) (test code = 752) RED CELL DISTRIBUTION WIDTH 15.6 % 11.6-14.4 H ([facility]) (test code = 412) PLATELET COUNT ([facility]) (test 131 K/CU MM 150-450 L code = 756) MEAN PLATELET VOLUME ([facility]) 9.1 fL 9.4-12.4 L (test code = 754) NUCLEATED RED BLOOD CELLS 0 /100 WBC 0-0 ([facility]) (test code = 413) [id number] 00:01:00 Test Item Value Reference Range Interpretation Comments PARTIAL THROMBOPLASTIN TIME 78.5 seconds 22.5-36.0 H ([facility]) (test code = 760) POCT-GLUCOSE [id number] 21:26:00 Test Item Value Reference Range Interpretation Comments POC-GLUCOSE METER 139 mg/dL 70-110 H TESTED AT [place] [address] ([facility]) (test code = [facility] 1538) [address] POCT-GLUCOSE [id number] 17:58:00 Test Item Value Reference Range Interpretation Comments POC-GLUCOSE METER 146 mg/dL 70-110 H TESTED AT [place] [address] ([facility]) (test code = [facility] 1538) [address] [id number] 17:16:00 Test Item Value Reference Range Interpretation Comments PARTIAL THROMBOPLASTIN TIME 34.5 seconds 22.5-36.0 ([facility]) (test code = 760) Prior to initiating heparinPOCT-GLUCOSE [id number] 12:54:00 Test Item Value Reference Range Interpretation Comments POC-GLUCOSE METER 133 mg/dL 70-110 H TESTED AT [place] [address] ([facility]) (test code = [facility] 1538) [address] RAD, CHEST, 1 VIEW, NON [id number] 08:06:00Reason for exam:->Post opShould this be performed at the bedside?->YesFINAL REPORT Chest one view. Clinical history: Post op Comparison: 12/27/2018 Discussion: A frontal chest is provided. Cardiomediastinal contours are unchanged. Lines and tubesare in stable position. Unchanged right-sided pleural-parenchymal opacities. Left lung is grossly clear. Vessels do not appear engorged. No pneumothorax. Signed: Dionicio Cheryort Verified Date/Time: 12/28/2018 08:06:07 Reading Location: [address] Neuro Reading Room BASIC METABOLIC [id number] 06:52:00 Test Item Value Reference Range Interpretation [...] NOT APPLICABLE FOR DIALYSIS PATIEN TS. PROTHROMBIN TIME/[id number] 06:31:00 Test Item Value Reference Range Interpretation [...] 0-0 (BEAKER) (test code = 413) POCT-GLUCOSE [id number] 21:41:00 Test Item Value Reference Range Interpretation Comments POC-GLUCOSE METER 163 mg/dL 70-110 H TESTED AT [facility] 6720 ([facility]) (test code = [place] 1538) [address] POCT-GLUCOSE [id number] 17:23:00 Test Item Value Reference Range Interpretation Comments POC-GLUCOSE METER 119 mg/dL 70-110 H TESTED AT [facility] 6720 ([facility]) (test code = FOSTER Paul [facility] 1538) [address] RAD, CHEST, 1 VIEW, NON [id number] 14:49:00Reason for exam:->Post opShould this be performed [...] MDReport Verified Date/Time: 12/27/2018 14:49:48 Reading Location: [facility] C013X Ortho Consult Reading Room ANG, NON-TUNNELED CATH >5 Y.O. [id number] 14:17:00Reason for exam:->Central line placement, poor access, [...] guide wire was advanced centrally. A 7 Micronesian 20 cm triple lumen catheter was advanced [...] catheter terminating in the right atrium.Signed: Bonny Sykesort Verified Date/Time: 12/27/2018 14:17:02 Reading Location: [facility] P048 Angio Body Reading Room [id number] 13:44:00 Test Item Value Reference Range Interpretation Comments PARTIAL THROMBOPLASTIN TIME 44.3 seconds 22.5-36.0 H (BEAKER) (test code = 760) Prior to initiating heparinPOCT-GLUCOSE [id number] 13:27:00 Test Item Value Reference Range Interpretation Comments POC-GLUCOSE METER 127 mg/dL 70-110 H TESTED AT [facility] 67 ([facility]) (test code = [facility] 1538) [address] POCT-GLUCOSE [id number] 08:58:00 Test Item Value Reference Range Interpretation Comments POC-GLUCOSE METER 79 mg/dL 70-110 TESTED AT [place] [address] ([facility]) (test code = [facility] [address] 1538) BASIC METABOLIC [id number] 07:09:00 Test Item Value Reference Range Interpretation [...] NOT APPLICABLE FOR DIALYSIS PATIEN TS. PROTHROMBIN [id number] 06:52:00 Test Item Value Reference Range Interpretation [...] WBC 0-0 (test code = 413) POCT-GLUCOSE [id number] 23:54:00 Test Item Value Reference Range Interpretation Comments POC-GLUCOSE METER 73 mg/dL 70-110 TESTED AT [place] [address] ([facility]) (test code = [facility] [address] 1538) POCT-GLUCOSE [id number] 16:02:00 Test Item Value Reference Range Interpretation Comments POC-GLUCOSE METER 108 mg/dL 70-110 TESTED AT [place] [address] ([facility]) (test code = [facility] 1538) [address] POCT-GLUCOSE [id number] 15:24:00 Test Item Value Reference Range Interpretation Comments POC-GLUCOSE METER 74 mg/dL 70-110 TESTED AT [facility] 6720 (BEAKER) (test code = FOSTER Paul [facility] [address] 1538) POCT-GLUCOSE [id number] 10:29:00 Test Item Value Reference Range Interpretation Comments POC-GLUCOSE METER 88 mg/dL 70-110 TESTED AT [facility] 6720 [facility] (test code = FOSTER Paul [facility] [address] 1538) RAD, CHEST, 1 VIEW, NON [id number] 07:33:00Reason for exam:->Post opShould this be performed [...] IMPRESSION: No significant change. Signed: [facility] Verified Date/Time: 12/26/2018 07:33:38 Reading Location: [facility] Radiology Reading Room BASIC METABOLIC [id number] 06:42:00 Test Item Value Reference Range Interpretation [...] 0-0 H (test code = 413) PROTHROMBIN TIME/[id number] 05:44:00 Test Item Value Reference Range Interpretation Comments PROTIME (BEAKER) (test code = 24.4 seconds 11.7-14.7 H 759) INR (BEAKER) (test code = 370) 2.2 <=5.9 RECOMMENDED COUMADIN/WARFARIN INR THERAPY RANGESSTANDARD DOSE: 2.0 - 3.0 Includes: PROPHYLAXIS forvenous thrombosis, systemic embolization; TREATMENT for venous thrombosis and/or pulmonary embolus.HIGH RISK: Target INR is 2.5-3.5 for patients with mechanical heart valves.POCT-GLUCOSE [id number] 00:06:00 Test Item Value Reference Range Interpretation Comments POC-GLUCOSE METER 88 mg/dL 70-110 TESTED AT [facility] 6720 (BEAKER) (test code = [place] [address] 1538) POCT-GLUCOSE [id number] 19:06:00 Test Item Value Reference Range Interpretation Comments POC-GLUCOSE METER 121 mg/dL 70-110 H TESTED AT [facility] 6720 ([facility] (test code = MARIA GNC Humberto [facility] 1538) [address] PROTHROMBIN TIME/[id number] 16:10:00 Test Item Value Reference Range Interpretation Comments PROTIME (BEAKER) (test code = 30.1 seconds 11.7-14.7 H 759) INR (BEAKER) (test code = 370) 2.9 <=5.9 RECOMMENDED COUMADIN/WARFARIN INR THERAPY RANGESSTANDARD DOSE: 2.0 - 3.0 Includes: PROPHYLAXIS forvenous thrombosis, systemic embolization; TREATMENT for venous thrombosis and/or pulmonary embolus.HIGH RISK: Target INR is 2.5-3.5 for patients with mechanical heart valves.BASIC METABOLIC [id number] 16:10:00 Test Item Value Reference Range Interpretation [...] S NOT APPLICABLE FOR DIALYSIS PATIEN TS. [id number] 16:09:00 Test Item Value Reference Range Interpretation [...] 0-0 H (test code = 413) POCT-GLUCOSE [id number] 08:03:00 Test Item Value Reference Range Interpretation Comments POC-GLUCOSE METER 89 mg/dL 70-110 TESTED AT [facility] 6720 (BEAKER) (test [place] = [place] [address] 1538) RAD, CHEST, 1 VIEW, NON [id number] 07:46:00Reason for exam:->Post opShould this be performed at the bedside?->YesFINAL REPORT Chest one view. Clinical history: Post op Comparison: 12/24/2018 Discussion: A frontal chest is provided. Cardiomediastinal contours are unchanged. Stable appearance of pleural-parenchymal opacity at the right mid to lower lung. There is a tiny right apical pneumothorax, unchanged. Probable trace left effusion. Signed: Dionicio Chery Verified Date/Time: 07:46:01 Reading Location: [facility] Radiology Reading Room RAD, ABDOMEN/KUB, 1 VIEW [id number] 07:25:00Reason for exam:->abdominal distentionShould this be performed [...] Chery Verified Date/Time: 12/25/2018 07:25:40 Reading Location: [facility] Radiology Reading Room POCT-GLUCOSE [id number] 22:06:00 Test Item Value Reference Range Interpretation Comments POC-GLUCOSE METER 102 mg/dL 70-110 TESTED AT [place] [address] ([facility]) (test code = FOSTER Paul [facility] 1538) [address] POCT-GLUCOSE [id number] 18:44:00 Test Item Value Reference Range Interpretation Comments POC-GLUCOSE METER 100 mg/dL 70-110 TESTED AT [place] [address] ([facility]) (test code = [facility] Humberto [facility] 1538) [address] POCT-GLUCOSE [id number] 14:54:00 Test Item Value Reference Range Interpretation Comments POC-GLUCOSE METER 103 mg/dL 70-110 TESTED AT [place] [address] ([facility]) (test code = [facility] codetag [facility] 1538) [address] [id number] 08:07:00 Test Item Value Reference Range Interpretation Comments FERRITIN ([facility]) (test code = 2044 ng/mL 5-275 H 361) POCT-GLUCOSE [id number] 07:57:00 Test Item Value Reference Range Interpretation Comments POC-GLUCOSE METER 76 mg/dL 70-110 TESTED AT [facility] 6720 (BEAKER) (test [place] = [place] [address] 1538) RAD, CHEST, 1 VIEW, NON [id number] 07:57:00Reason for exam:->Post opShould this be performed [...] MDReport Verified Date/Time: 12/24/2018 07:57:06 Reading Location: [facility] Radiology Reading Room CBC (HEMOGRAM [...] H (test code = 413) BASIC METABOLIC [id number] 07:14:00 Test Item Value Reference Range Interpretation [...] S NOT APPLICABLE FOR DIALYSIS PATIEN TS. [id number] 07:08:00 Test Item Value Reference Range Interpretation [...] % 20-55 (test code = 2590) PROTHROMBIN TIME/[id number] 07:05:00 Test Item Value Reference Range Interpretation Comments PROTIME (BEAKER) (test code = 38.7 seconds 11.7-14.7 H 759) INR (BEAKER) (test code = 370) 3.9 <=5.9 RECOMMENDED COUMADIN/WARFARIN INR THERAPY RANGESSTANDARD DOSE: 2.0 - 3.0 Includes: PROPHYLAXIS forvenous thrombosis, systemic embolization; TREATMENT for venous thrombosis and/or pulmonary embolus.HIGH RISK: Target INR is 2.5-3.5 for patients with mechanical heart valves.POCT-GLUCOSE [id number] 00:26:00 Test Item Value Reference Range Interpretation Comments POC-GLUCOSE METER 86 mg/dL 70-110 TESTED AT [place] [address] ([facility]) (test code = FOSTER Paul [facility] [address] 1538) POCT-GLUCOSE [id number] 00:26:00 Test Item Value Reference Range Interpretation Comments POC-GLUCOSE METER 137 mg/dL 70-110 H TESTED AT [place] [address] ([facility]) (test code = FOSTER Paul [facility] 1538) [address] POCT-GLUCOSE [id number] 16:07:00 Test Item Value Reference Range Interpretation Comments POC-GLUCOSE METER 72 mg/dL 70-110 TESTED AT [place] [address] ([facility]) (test code = [facility] Humberto [facility] [address] 1538) POCT-GLUCOSE [id number] 16:07:00 Test Item Value Reference Range Interpretation Comments POC-GLUCOSE METER 61 mg/dL 70-110 L TESTED AT [place] [address] ([facility]) (test code = [facility] Humberto [facility] [address] 1538) POCT-GLUCOSE [id number] 11:27:00 Test Item Value Reference Range Interpretation Comments POC-GLUCOSE METER 82 mg/dL 70-110 TESTED AT [place] [address] ([facility]) (test code = [facility] [address] 1538) POCT-GLUCOSE [id number] 10:32:00 Test Item Value Reference Range Interpretation Comments POC-GLUCOSE METER 43 mg/dL 70-110 L TESTED AT [place] [address] ([facility]) (test code = [facility] [address] 1538) BASIC METABOLIC [id number] 07:28:00 Test Item Value Reference Range Interpretation [...] S NOT APPLICABLE FOR DIALYSIS PATIEN TS. [id number] 07:24:00 Test Item Value Reference Range Interpretation Comments MAGNESIUM (BEAKER) 2.0 mg/dL 1.6-2.6 Specimen slightly (test code = 627) hemolyzed [id number] 07:24:00 Test Item Value Reference Range Interpretation Comments PHOSPHORUS (BEAKER) 4.4 mg/dL 2.3-4.7 Specimen slightly (test code = 604) hemolyzed PROTHROMBIN TIME/[id number] 07:20:00 Test Item Value Reference Range Interpretation [...] = 413) RAD, CHEST, 1 VIEW, NON [id number] 04:22:00Reason for exam:->Post opShould this be performed [...] MDReport Verified Date/Time: 12/23/2018 04:22:43 Reading Location: [facility] C013Y CT Body Reading Room POCT-GLUCOSE [id number] 03:01:00 Test Item Value Reference Range Interpretation Comments POC-GLUCOSE METER 85 mg/dL 70-110 TESTED AT [facility] 6720 (BEAKER) (test code = [place] [address] 1538) BASIC METABOLIC [id number] 18:52:00 Test Item Value Reference Range Interpretation [...] H (BEAKER) (test code = 413) ANAEROBIC [id number] 17:00:00 Test Item Value Reference Range Interpretation Comments CULTURE (BEAKER) (test No anaerobes isolated code = 1095) RAD, CHEST, 1 VIEW, NON [id number] 07:44:00Reason for exam:->Post opShould this be performed [...] Arteaga Verified Date/Time: 12/22/2018 07:44:12 Reading Location: [facility] Radiology Reading Room PROTHROMBIN TIME/[id number] 04:31:00 Test Item Value Reference Range Interpretation [...] METER 141 mg/dL 70-110 H TESTED AT [place] [address] ([facility]) (test code = FOSTER Paul [place] 1538) [address] POCT-GLUCOSE [id number] 13:22:00 Test Item Value Reference Range Interpretation Comments POC-GLUCOSE METER 100 mg/dL 70-110 TESTED AT [place] [address] ([facility]) (test code = FOSTER Paul [place] 1538) [address] RAD, CHEST, 1 VIEW, NON [id number] 08:01:00Reason for exam:->Post opShould this be performed [...] Lisa Verified Date/Time: 12/21/2018 08:01:46 Reading Location: [address] Neuro Reading Room PROTHROMBIN TIME/[id number] 05:30:00 Test Item Value Reference Range Interpretation [...] 6720 (BEAKER) (test code = FOSTER Paul [facility] [address] 1538) POCT-GLUCOSE [id number] 17:40:00 Test Item Value Reference Range Interpretation Comments POC-GLUCOSE METER 91 mg/dL 70-110 TESTED AT [facility] 6720 (BEAKER) (test code = FOSTER Paul [facility] [address] 1538) POCT-GLUCOSE [id number] 13:13:00 Test Item Value Reference Range Interpretation Comments POC-GLUCOSE METER 73 mg/dL 70-110 TESTED AT [place] [address] (BEAKER) (test code = FOSTER Paul [facility] [address] 1538) SURGICALLY OBTAINED CULTURE + GRAM [id number] 08:41:00 Test Item Value Reference Range Interpretation Comments CULTURE (BEAKER) (test No growth code = 1095) GRAM STAIN RESULT No White blood cells (BEAKER) (test code = seen 1123) GRAM STAIN RESULT No organisms seen (BEAKER) (test code = 63567) RAD, CHEST, 1 VIEW, NON [id number] 08:20:00Reason for exam:->Post opShould this be performed [...] MDReport Verified Date/Time: 12/20/2018 08:20:58 Reading Location: [address] Neuro Reading Room BASIC METABOLIC [id number] 08:09:00 Test Item Value Reference Range Interpretation [...] S NOT APPLICABLE FOR DIALYSIS PATIEN TS. [id number] 08:00:00 Test Item Value Reference Range Interpretation Comments PHOSPHORUS (BEAKER) (test code = 4.5 mg/dL 2.3-4.7 604) CALCIUM, [id number] 07:20:00 Test Item Value Reference Range Interpretation Comments CALCIUM IONIZED (BEAKER) (test 1.04 mmol/L 1.12-1.27 L code = 698) PH, BLOOD (BEAKER) (test code = 7.35 1810) PROTHROMBIN TIME/[id number] 07:04:00 Test Item Value Reference Range Interpretation [...] 0-0 (BEAKER) (test code = 413) POCT-GLUCOSE [id number] 22:00:00 Test Item Value Reference Range Interpretation Comments POC-GLUCOSE METER 188 mg/dL 70-110 H TESTED AT [facility] 6720 (BEAKER) (test code = FOSTER Paul [facility] 1538) [id number] TISSUE [id number] 18:15:00Surgical Pathology Report Case: [id number] Authorizing Provider: Moiz Vargas, Collected: 12/17/2018 0950 Ordering Location: [facility] Received: 12/17/2018 1129 PERIOPERATIVE SERVICES Pathologist: Kwan Perla MD Specimen: Pleural, Right, RIGHT PLEURAL PEEL PLEURA, RIGHT, DECORTICATION- MILD CHRONIC INFLAMMATION AND GRANULATION TISSUE- ORGANIZING BLOOD CLOTS- NO MALIGNANT CELLS IDENTIFIED Signing Pathologist Direct Phone Line: [phone] signed by Kwan Perla MD on 12/19/2018 at 6:15 PMCorrelation with microbiology cultures is recommended.[id number] effusion and other conditions classified elsewhereRight pleural peelThe specimen is received in a formalin-filled container labeled with the patient's information and labeled "right pleural peel" and consists of multiple fragments of porter-red, dusky, firm tissue measuring 6 x 5 x 0.4 cm in aggregate. [employer] Technician sections are submitted in A1-A3. CG/ew Performed.POCT-GLUCOSE [id number] 17:11:00 Test Item Value Reference Range Interpretation Comments POC-GLUCOSE METER 126 mg/dL 70-110 H TESTED AT [place] [address] ([facility]) (test [facility] = [facility] 1538) [address] POCT-GLUCOSE [id number] 12:57:00 Test Item Value Reference Range Interpretation Comments POC-GLUCOSE METER 143 mg/dL 70-110 H TESTED AT [place] [address] ([facility]) (test code = [facility] 1538) [address] POCT-GLUCOSE [id number] 07:27:00 Test Item Value Reference Range Interpretation Comments POC-GLUCOSE METER 141 mg/dL 70-110 H TESTED AT [place] [address] ([facility]) (test code = [facility] 1538) [address] CALCIUM, [id number] 06:29:00 Test Item Value Reference Range Interpretation Comments CALCIUM IONIZED ([facility]) (test 1.00 mmol/L 1.12-1.27 L code = 698) PH, BLOOD ([facility]) (test code = 7.45 1810) RAD, CHEST, 1 VIEW, NON [id number] 04:54:00Reason for exam:->Post opShould this be performed [...] [place] Verified Date/Time: 2018 04:54:49 Reading Location: [place] [id number] CT Body Reading Room BASIC METABOLIC [id number] 04:19:00 Test Item Value Reference Range Interpretation [...] S NOT APPLICABLE FOR DIALYSIS PATIEN TS. [id number] 04:16:00 Test Item Value Reference Range Interpretation Comments PHOSPHORUS (BEAKER) (test code = 3.4 mg/dL 2.3-4.7 604) PROTHROMBIN [id number] 04:06:00 Test Item Value Reference Range Interpretation [...] 0-0 (AKER) (test code = 413) POCT-GLUCOSE [id number] 22:11:00 Test Item Value Reference Range Interpretation Comments POC-GLUCOSE METER 149 mg/dL 70-110 H TESTED AT [place] [address] ([facility]) (test code = [facility] 1538) [address] POCT-GLUCOSE [id number] 17:52:00 Test Item Value Reference Range Interpretation Comments POC-GLUCOSE METER 122 mg/dL 70-110 H TESTED AT [place] [address] ([facility]) (test code = [facility] 1538) [address] POCT-GLUCOSE [id number] 14:26:00 Test Item Value Reference Range Interpretation Comments POC-GLUCOSE METER 98 mg/dL 70-110 TESTED AT [place] [address] ([facility]) (test code = [facility] [address] 1538) HEMOGLOBIN AND [id number] 12:47:00 Test Item Value Reference Range Interpretation Comments HEMOGLOBIN (BEAKER) (test code = 9.2 GM/DL 13.7-17.5 L 410) HEMATOCRIT (BEAKER) (test code = 28.3 % 40.1-51.0 L 411) POCT-GLUCOSE [id number] 09:38:00 Test Item Value Reference Range Interpretation Comments POC-GLUCOSE METER 73 mg/dL 70-110 TESTED AT [facility] 6720 (BEAKER) (test [place] = [place] [address] 1538) PROTEIN ELECTROPHORESIS, [id number] 09:21:00 Test Item Value Reference Range Interpretation [...] of chronic inflammation. No monoclonal bands detected. [id number] Amanda De Jesus MD (BEAKER) (test code = (electronic signature) 2616) PROTEIN TOTAL SERUM, 7.5 gm/dL 6.0-8.3 SPEP (BEAKER) (test code = 2660) RAD, CHEST, 1 VIEW, NON [id number] 06:47:00Reason for exam:->Post opShould this be performed [...] wall and lower neck. Signed: Raz Taylor Verified Date/Time: 12/18/2018 06:47:21 Reading Location: [facility] B1 C013Y CT Body Reading Room [id number] 06:20:00 Test Item Value Reference Range Interpretation Comments MAGNESIUM (BEAKER) (test code = 2.2 mg/dL 1.6-2.6 627) CALCIUM, [id number] 06:00:00 Test Item Value Reference Range Interpretation Comments CALCIUM IONIZED (BEAKER) (test 1.09 mmol/L 1.12-1.27 L code = 698) PH, BLOOD (BEAKER) (test code = 7.34 1810) BASIC METABOLIC [id number] 05:07:00 Test Item Value Reference Range Interpretation [...] S NOT APPLICABLE FOR DIALYSIS PATIEN TS. [id number] 04:54:00 Test Item Value Reference Range Interpretation Comments PHOSPHORUS (BEAKER) (test code = 6.3 mg/dL 2.3-4.7 H 604) HEPATIC FUNCTION [id number] 04:54:00 Test Item Value Reference Range Interpretation [...] (test code = 23 U/L 6-55 347) [id number] 04:51:00 Test Item Value Reference Range Interpretation Comments PARTIAL THROMBOPLASTIN TIME 38.6 seconds 22.5-36.0 H (BEAKER) (test code = 760) PROTHROMBIN [id number] 04:50:00 Test Item Value Reference Range Interpretation Comments PROTIME (BEAKER) (test code = 16.0 seconds 11.7-14.7 H 759) INR (BEAKER) (test code = 370) 1.3 <=5.9 RECOMMENDED COUMADIN/WARFARIN INR THERAPY RANGESSTANDARD DOSE: 2.0 - 3.0 Includes: PROPHYLAXIS forvenous thrombosis, systemic embolization; TREATMENT for venous thrombosis and/or pulmonary embolus.HIGH RISK: Target INR is 2.5-3.5 for patients with mechanical heart valves.[id number] 04:50:00 Test Item Value Reference Range Interpretation Comments FIBRINOGEN LEVEL (BEAKER) (test 494 mg/dl 225-434 H code = 658) PLATELET [id number] 04:38:00 Test Item Value Reference Range Interpretation [...] WBC 0-0 (BEAKER) (test code = 413) [id number] 18:48:00 Test Item Value Reference Range Interpretation Comments MAGNESIUM (BEAKER) (test code = 2.4 mg/dL 1.6-2.6 627) POCT-GLUCOSE [id number] 18:42:00 Test Item Value Reference Range Interpretation Comments POC-GLUCOSE METER 121 mg/dL 70-110 H TESTED AT [facility] 6720 (BEAKER) (test code = [place] 1538) [address] HEMOGLOBIN AND [id number] 18:37:00 Test Item Value Reference Range Interpretation Comments HEMOGLOBIN (BEAKER) (test code = 10.0 GM/DL 13.7-17.5 L 410) HEMATOCRIT (BEAKER) (test code = 31.3 % 40.1-51.0 L 411) RAD, CHEST, 1 VIEW, NON [id number] 13:28:00Reason for exam:->post opShould this be performed [...] MDReport Verified Date/Time: 12/17/2018 13:28:23 Reading Location: [facility] Reading Room BASI METABOLIC [id number] 13:03:00 Test Item Value Reference Range Interpretation [...] S NOT APPLICABLE FOR DIALYSIS PATIEN TS. [id number] 12:53:00 Test Item Value Reference Range Interpretation Comments PHOSPHORUS (BEAKER) (test code = 4.3 mg/dL 2.3-4.7 604) [id number] 12:53:00 Test Item Value Reference Range Interpretation Comments MAGNESIUM (BEAKER) (test code = 1.5 mg/dL 1.6-2.6 L 627) LACTIC ACID, [id number] 12:50:00 Test Item Value Reference Range Interpretation Comments LACTATE BLOOD ARTERIAL (2) 0.9 mmol/L 0.5-2.2 (BEAKER) (test code = 2874) CBC W/PLT COUNT & AUTO [id number] 12:47:00 Test Item Value Reference Range Interpretation [...] PERCENT (BEAKER) (test code = 2801) CALCIUM, [id number] 12:26:00 Test Item Value Reference Range Interpretation Comments CALCIUM IONIZED (BEAKER) (test 1.07 mmol/L 1.12-1.27 L code = 698) PH, BLOOD (BEAKER) (test code = 7.38 1810) BLOOD GAS, [id number] 12:26:00 Test Item Value Reference Range Interpretation [...] (test code = 1819) 40.0 % CALCIUM, [id number] 10:25:00 Test Item Value Reference Range Interpretation Comments CALCIUM IONIZED (BEAKER) (test 1.09 mmol/L 1.12-1.27 L code = 698) PH, BLOOD (BEAKER) (test code = 7.45 1810) BLOOD GAS, [id number] 10:22:00 Test Item Value Reference Range Interpretation [...] code = 1819) 96.0 % SODIUM NA-STAT [id number] 10:22:00 Test Item Value Reference Range Interpretation Comments SODIUM (BEAKER) (test code = 381) 133 meq/L 135-148 L GLUCOSE-STAT [id number] 10:22:00 Test Item Value Reference Range Interpretation Comments GLUCOSE RANDOM (BEAKER) (test code 116 mg/dL 70-110 H = 652) HGB/HCT (H&H) - STAT [id number] 10:22:00 Test Item Value Reference Range Interpretation Comments HEMOGLOBIN (BEAKER) (test code = 8.9 g/dL 13.0-16.8 L 410) HEMATOCRIT (BEAKER) (test code = 26.0 % 40.0-50.0 L 411) POTASSIUM-STAT [id number] 10:20:00 Test Item Value Reference Range Interpretation Comments POTASSIUM (BEAKER) (test code = 4.0 meq/L 3.6-5.5 379) HEMOGLOBIN [id number] 09:33:00 Test Item Value Reference Range Interpretation Comments HEMOGLOBIN A1C (BEAKER) (test code = 5.9 % 4.3-6.1 368) BLOOD GAS, [id number] 09:27:00 Test Item Value Reference Range Interpretation [...] code = 1819) 100.0 % SODIUM NA-STAT [id number] 09:27:00 Test Item Value Reference Range Interpretation Comments SODIUM (BEAKER) (test code = 381) 133 meq/L 135-148 L HGB/HCT (H&H) - STAT [id number] 09:27:00 Test Item Value Reference Range Interpretation Comments HEMOGLOBIN (BEAKER) (test code = 9.4 g/dL 13.0-16.8 L 410) HEMATOCRIT (BEAKER) (test code = 28.0 % 40.0-50.0 L 411) GLUCOSE-STAT [id number] 09:26:00 Test Item Value Reference Range Interpretation Comments GLUCOSE RANDOM (BEAKER) (test code = 97 mg/dL 70-110 652) POTASSIUM-STAT [id number] 09:26:00 Test Item Value Reference Range Interpretation Comments POTASSIUM (BEAKER) (test code = 3.9 meq/L 3.6-5.5 379) CALCIUM, [id number] 09:26:00 Test Item Value Reference Range Interpretation Comments CALCIUM IONIZED (BEAKER) (test 1.17 mmol/L 1.12-1.27 code = 698) PH, BLOOD (BEAKER) (test code = 7.44 1810) BLOOD GAS, [id number] 08:32:00 Test Item Value Reference Range Interpretation [...] code = 1819) 96.0 % SODIUM NA-STAT [id number] 08:32:00 Test Item Value Reference Range Interpretation Comments SODIUM (BEAKER) (test code = 381) 133 meq/L 135-148 L GLUCOSE-STAT [id number] 08:32:00 Test Item Value Reference Range Interpretation Comments GLUCOSE RANDOM (BEAKER) (test code 113 mg/dL 70-110 H = 652) HGB/HCT (H&H) - STAT [id number] 08:32:00 Test Item Value Reference Range Interpretation Comments HEMOGLOBIN (BEAKER) (test code = 9.9 g/dL 13.0-16.8 L 410) HEMATOCRIT (BEAKER) (test code = 29.0 % 40.0-50.0 L 411) CALCIUM, [id number] 08:31:00 Test Item Value Reference Range Interpretation Comments CALCIUM IONIZED (BEAKER) (test 1.05 mmol/L 1.12-1.27 L code = 698) PH, BLOOD (BEAKER) (test code = 7.49 1810) POTASSIUM-STAT [id number] 08:29:00 Test Item Value Reference Range Interpretation Comments POTASSIUM (BEAKER) (test code = 3.6 meq/L 3.6-5.5 379) POCT-GLUCOSE [id number] 06:20:00 Test Item Value Reference Range Interpretation Comments POC-GLUCOSE METER 99 mg/dL 70-110 TESTED AT [facility] 6720 ([facility]) (test code = FOSTER Paul [facility] [address] 1538) [id number] 05:05:00 Test Item Value Reference Range Interpretation Comments PARTIAL THROMBOPLASTIN TIME 75.6 seconds 22.5-36.0 H (BEAKER) (test code = 760) LIPID [id number] 05:04:00 Test Item Value Reference Range Interpretation [...] Borderline 130-159 High 160-189 Very High >=190PROTHROMBIN [id number] 05:03:00 Test Item Value Reference Range Interpretation Comments PROTIME (BEAKER) (test code = 15.4 seconds 11.7-14.7 H 759) INR (BEAKER) (test code = 370) 1.2 <=5.9 RECOMMENDED COUMADIN/WARFARIN INR THERAPY RANGESSTANDARD DOSE: 2.0 - 3.0 Includes: PROPHYLAXIS forvenous thrombosis, systemic embolization; TREATMENT for venous thrombosis and/or pulmonary embolus.HIGH RISK: Target INR is 2.5-3.5 for patients with mechanical heart valves.POCT-GLUCOSE [id number] 21:17:00 Test Item Value Reference Range Interpretation Comments POC-GLUCOSE METER 223 mg/dL 70-110 H TESTED AT [facility] 6720 (BEAKER) (test code = [place] 1538) [address] COMPREHENSIVE METABOLIC [id number] 18:57:00 Test Item Value Reference Range Interpretation [...] S NOT APPLICABLE FOR DIALYSIS PATIEN TS. [id number] 18:46:00 Test Item Value Reference Range Interpretation Comments MAGNESIUM (BEAKER) (test code = 1.8 mg/dL 1.6-2.6 627) CBC W/PLT COUNT & AUTO [id number] 18:10:00 Test Item Value Reference Range Interpretation [...] = 432) BASOPHILS RELATIVE PERCENT 1 % (AKER) (test code = 437) NEUTROPHILS ABSOLUTE COUNT 4.39 K/ L 1.78-5.38 ([facility]) (test code = 670) LYMPHOCYTES ABSOLUTE COUNT 0.82 K/ L 1.32-3.57 L (AKER) (test code = 414) MONOCYTES ABSOLUTE COUNT (AKER) 0.84 K/ L 0.30-0.82 H (test code = 415) EOSINOPHILS ABSOLUTE COUNT 0.05 K/ L 0.04-0.54 (AKER) (test code = 416) BASOPHILS ABSOLUTE COUNT (BEAKER) 0.03 K/ L 0.01-0.08 (test code = 417) IMMATURE GRANULOCYTES-RELATIVE 1 % 0-1 PERCENT ([facility]) (test code = 2801) POCT-GLUCOSE [id number] 17:34:00 Test Item Value Reference Range Interpretation Comments POC-GLUCOSE METER 169 mg/dL 70-110 H TESTED AT [place] [address] ([facility]) (test code = FOSTER Paul [facility] 1538) [address] HEPARIN [id number] 13:40:00 Test Item Value Reference Range Interpretation Comments HEPARIN ANTIBODY ([facility]) (test code Negative Negative = 646) HEPARIN ANTIBODY OD ([facility]) (test 0.105 <0.400 code = 3619) 4T TOTAL SCORE ([facility]) (test code = 4 8302) Probability of HIT based on scoring system: 6-8 = High probability; 4-5 = intermediate probability;0-3 = low probabilityPOCT-GLUCOSE [id number] 12:51:00 Test Item Value Reference Range Interpretation Comments POC-GLUCOSE METER 66 mg/dL 70-110 L Notified R Toy PÉREZ/TESTED AT ([facility]) (test code = [place] [address] JOSE ANTONIO 1538) [place] [address] POCT-GLUCOSE [id number] 07:54:00 Test Item Value Reference Range Interpretation Comments POC-GLUCOSE METER 75 mg/dL 70-110 TESTED AT [place] [address] ([facility]) (test code = FOSTER Paul [facility] [address] 1538) [id number] 04:21:00 Test Item Value Reference Range Interpretation Comments PROTIME ([facility]) (test code = 15.4 seconds 11.7-14.7 H 759) INR ([facility]) (test code = 370) 1.2 <=5.9 PARTIAL THROMBOPLASTIN TIME 74.0 seconds 22.5-36.0 H ([facility]) (test code = 760) RECOMMENDED COUMADIN/WARFARIN INR THERAPY RANGESSTANDARD DOSE: 2.0 - 3.0 Includes: PROPHYLAXIS forvenous thrombosis, systemic embolization; TREATMENT for venous thrombosis and/or pulmonary embolus.HIGH RISK: Target INR is 2.5-3.5 for patients with mechanical heart valves.[id number] 04:20:00 Test Item Value Reference Range Interpretation Comments FIBRINOGEN LEVEL ([facility]) (test 525 mg/dl 225-434 H code = 658) POCT-GLUCOSE [id number] 21:25:00 Test Item Value Reference Range Interpretation Comments POC-GLUCOSE METER 129 mg/dL 70-110 H TESTED AT [place] [address] ([facility]) (test code = FOSTER Paul [facility] 1538) [address] [id number] 18:23:00 Test Item Value Reference Range Interpretation Comments PARTIAL THROMBOPLASTIN TIME 72.0 seconds 22.5-36.0 H ([facility]) (test code = 760) POCT-GLUCOSE [id number] 16:20:00 Test Item Value Reference Range Interpretation Comments POC-GLUCOSE METER 142 mg/dL 70-110 H TESTED AT [place] [address] ([facility]) (test code = MARIA GNC Humberto [facility] 1538) [address] POCT-GLUCOSE [id number] 13:05:00 Test Item Value Reference Range Interpretation Comments POC-GLUCOSE METER 86 mg/dL 70-110 TESTED AT [place] [address] ([facility]) (test code = MARIA GNC Humberto [facility] [address] 1538) [id number] 11:19:00 Test Item Value Reference Range Interpretation Comments PARTIAL THROMBOPLASTIN TIME 72.3 seconds 22.5-36.0 H ([facility]) (test code = 760) POCT-GLUCOSE [id number] 07:56:00 Test Item Value Reference Range Interpretation Comments POC-GLUCOSE METER 87 mg/dL 70-110 TESTED AT [place] [address] ([facility]) (test code = [facility] [address] 1538) [id number] 03:13:00 Test Item Value Reference Range Interpretation Comments PARTIAL THROMBOPLASTIN TIME 97.1 seconds 22.5-36.0 H (BEAKER) (test code = 760) PROTHROMBIN [id number] 03:11:00 Test Item Value Reference Range Interpretation [...] WBC 0-0 (test code = 413) POCT-GLUCOSE [id number] 21:26:00 Test Item Value Reference Range Interpretation Comments POC-GLUCOSE METER 121 mg/dL 70-110 H TESTED AT [place] [address] ([facility]) (test code = [place] 1538) [address] [id number] 19:05:00 Test Item Value Reference Range Interpretation Comments PARTIAL THROMBOPLASTIN TIME 64.0 seconds 22.5-36.0 H ([facility]) (test code = 760) POCT-GLUCOSE [id number] 17:24:00 Test Item Value Reference Range Interpretation Comments POC-GLUCOSE METER 131 mg/dL 70-110 H TESTED AT [place] [address] ([facility]) (test code = FOSTER Paul [place] 1538) [address] [id number] 13:32:00 Test Item Value Reference Range Interpretation Comments PARTIAL THROMBOPLASTIN TIME 81.4 seconds 22.5-36.0 H ([facility]) (test code = 760) POCT-GLUCOSE [id number] 12:32:00 Test Item Value Reference Range Interpretation Comments POC-GLUCOSE METER 102 mg/dL 70-110 TESTED AT [place] [address] ([facility]) (test code = MARIA GNC Humberto [place] 1538) [address] POCT-GLUCOSE [id number] 07:07:00 Test Item Value Reference Range Interpretation Comments POC-GLUCOSE METER 113 mg/dL 70-110 H TESTED AT [place] [address] ([facility]) (test [facility] = [facility] [place] 1538) [address] [id number] 05:47:00 Test Item Value Reference Range Interpretation Comments PARTIAL THROMBOPLASTIN TIME 91.8 seconds 22.5-36.0 H ([facility]) (test code = 760) POCT-GLUCOSE [id number] 21:27:00 Test Item Value Reference Range Interpretation Comments POC-GLUCOSE METER 90 mg/dL 70-110 TESTED AT [place] [address] ([facility]) (test code = [facility] [address] 1538) POCT-GLUCOSE [id number] 17:46:00 Test Item Value Reference Range Interpretation Comments POC-GLUCOSE METER 175 mg/dL 70-110 H TESTED AT [place] [address] ([facility]) (test code = [facility] Humberto [place] 1538) [address] POCT-GLUCOSE [id number] 17:30:00 Test Item Value Reference Range Interpretation Comments POC-GLUCOSE METER 84 mg/dL 70-110 TESTED AT [place] [address] ([facility]) (test code = FOSTER Paul [facility] [address] 1538) [id number] 13:20:00 Test Item Value Reference Range Interpretation Comments PARTIAL THROMBOPLASTIN TIME 68.4 seconds 22.5-36.0 H (AKER) (test code = 760) BASIC METABOLIC [id number] 10:36:00 Test Item Value Reference Range Interpretation [...] = 358) GLUCOSE RANDOM 94 mg/dL 70-105 ([facility]) (test code = 652) CALCIUM (BEAKER) 8.8 mg/dL 8.4-10.2 (test code = 697) EGFR ([facility]) (test 11 mL/min/1.73 ESTIMA JAYLA GFR IS code = 1092) sq m NOT ACCURATE CREATININE CLEARANCE IN PREDICTING GLOMERULAR FILTRATION RATE . ESTIMATED GFR I S NOT APPLICABLE FOR DIALYSIS PATIEN TS. POCT-GLUCOSE [id number] 07:43:00 Test Item Value Reference Range Interpretation Comments POC-GLUCOSE METER 84 mg/dL 70-110 TESTED AT [place] [address] ([facility]) (test code = FOSTER Paul [facility] [address] 1538) [id number] 06:52:00 Test Item Value Reference Range Interpretation Comments PARTIAL THROMBOPLASTIN TIME 76.5 seconds 22.5-36.0 H ([facility]) (test code = 760) PROTHROMBIN [id number] 06:51:00 Test Item Value Reference Range Interpretation Comments PROTIME ([facility]) (test code = 16.5 seconds 11.7-14.7 H 759) INR ([facility]) (test code = 370) 1.3 <=5.9 RECOMMENDED [...] EOSINOPHILS ABSOLUTE COUNT 0.05 K/ L 0.04-0.54 ([facility] [place]) (test code = 416) BASOPHILS ABSOLUTE COUNT ([facility] [place]) 0.04 K/ L 0.01-0.08 (test code = 417) IMMATURE GRANULOCYTES-RELATIVE 1 % 0-1 PERCENT ([facility] [place]) (test code = 2801) [id number] 00:11:00 Test Item Value Reference Range Interpretation Comments PARTIAL THROMBOPLASTIN TIME 59.7 seconds 22.5-36.0 H ([facility] [place]) (test code = 760) POCT-GLUCOSE [id number] 21:33:00 Test Item Value Reference Range Interpretation Comments POC-GLUCOSE METER 113 mg/dL 70-110 H TESTED AT [place] [address] ([facility] [place]) (test code = FOSTER Paul [facility] 1538) [id number] POCT-GLUCOSE [id number] 18:08:00 Test Item Value Reference Range Interpretation Comments POC-GLUCOSE METER 128 mg/dL 70-110 H TESTED AT [place] [address] ([facility] [place]) (test code = FOSTER Paul [facility] 1538) [id number] 16:51:00 Test Item Value Reference Range Interpretation Comments PARTIAL THROMBOPLASTIN TIME 71.6 seconds 22.5-36.0 H ([facility] [place]) (test code = 760) POCT-GLUCOSE [id number] 12:39:00 Test Item Value Reference Range Interpretation Comments POC-GLUCOSE METER 124 mg/dL 70-110 H TESTED AT [place] [address] ([facility] [place]) (test code = FOSTER Paul [facility] 1538) [id number] 09:07:00 Test Item Value Reference Range Interpretation Comments PARTIAL THROMBOPLASTIN TIME 96.6 seconds 22.5-36.0 H ([facility] [place]) (test code = 760) POCT-GLUCOSE [id number] 07:48:00 Test Item Value Reference Range Interpretation Comments POC-GLUCOSE METER 105 mg/dL 70-110 TESTED AT [place] [address] ([facility]) (test code = FOSTER Paul [facility] 1538) [address] BASIC METABOLIC [id number] 01:54:00 Test Item Value Reference Range Interpretation Comments SODIUM ([facility]) 138 meq/L 136-145 (test code = 381) [...] S NOT APPLICABLE FOR DIALYSIS PATIRUBÉN TS. [id number] 01:37:00 Test Item Value Reference Range Interpretation Comments PARTIAL THROMBOPLASTIN TIME 53.4 seconds 22.5-36.0 H (BEAKER) (test code = 760) PROTHROMBIN TIME/[id number] 01:36:00 Test Item Value Reference Range Interpretation [...] PERCENT (BEAKER) (test code = 2801) POCT-GLUCOSE [id number] 21:57:00 Test Item Value Reference Range Interpretation Comments POC-GLUCOSE METER 165 mg/dL 70-110 H TESTED AT [facility] 6720 (BEAKER) (test code = FOSTER [place] 1538) [address] [id number] 18:46:00 Test Item Value Reference Range Interpretation Comments PARTIAL THROMBOPLASTIN TIME 39.0 seconds 22.5-36.0 H ([facility]) (test code = 760) POCT-GLUCOSE [id number] 17:51:00 Test Item Value Reference Range Interpretation Comments POC-GLUCOSE METER 157 mg/dL 70-110 H TESTED AT [place] [address] ([facility]) (test code = [place] 1538) [address] POCT-GLUCOSE [id number] 17:09:00 Test Item Value Reference Range Interpretation Comments POC-GLUCOSE METER 162 mg/dL 70-110 H TESTED AT [place] [address] ([facility]) (test code = FOSTER Paul [place] 1538) [address] [id number] 16:07:00 Test Item Value Reference Range Interpretation Comments PARTIAL THROMBOPLASTIN TIME 117.0 seconds 22.5-36.0 H ([facility]) (test code = 760) POCT-GLUCOSE [id number] 13:28:00 Test Item Value Reference Range Interpretation Comments POC-GLUCOSE METER 88 mg/dL 70-110 TESTED AT [place] [address] ([facility]) (test code = [place] [address] 1538) [id number] 09:17:00 Test Item Value Reference Range Interpretation Comments PARTIAL THROMBOPLASTIN TIME 71.7 seconds 22.5-36.0 H ([facility]) (test code = 760) POCT-GLUCOSE [id number] 08:07:00 Test Item Value Reference Range Interpretation Comments POC-GLUCOSE METER 137 mg/dL 70-110 H TESTED AT [place] [address] ([facility]) (test code = [place]OSTER Paul [place] 1538) [address] [id number] 02:27:00 Test Item Value Reference Range Interpretation Comments PARTIAL THROMBOPLASTIN TIME 62.4 seconds 22.5-36.0 H ([facility]) (test code = 760) PROTHROMBIN TIME/[id number] 02:26:00 Test Item Value Reference Range Interpretation Comments PROTIME ([facility]) (test code = 20.0 seconds 11.7-14.7 H 759) INR ([facility]) (test code = 370) 1.7 <=5.9 RECOMMENDED COUMADIN/WARFARIN INR THERAPY RANGESSTANDARD DOSE: 2.0 - 3.0 Includes: PROPHYLAXIS forvenous thrombosis, systemic embolization; TREATMENT for venous thrombosis and/or pulmonary embolus.HIGH RISK: Target INR is 2.5-3.5 for patients with mechanical heart valves.BASIC METABOLIC [id number] 02:02:00 Test Item Value Reference Range Interpretation [...] PATIEN TS. CBC W/PLT COUNT & AUTO [id number] 01:42:00 Test Item Value Reference Range Interpretation [...] PERCENT (BEAKER) (test code = 2801) POCT-GLUCOSE [id number] 21:12:00 Test Item Value Reference Range Interpretation Comments POC-GLUCOSE METER 199 mg/dL 70-110 H TESTED AT [facility] 67 ([facility]) (test code = [place] 1538) [address] POCT-GLUCOSE [id number] 17:39:00 Test Item Value Reference Range Interpretation Comments POC-GLUCOSE METER 145 mg/dL 70-110 H TESTED AT [facility] 6720 ([facility]) (test code = FOSTER Paul [facility] 1538) [address] [id number] 17:33:00 Test Item Value Reference Range Interpretation Comments PARTIAL THROMBOPLASTIN TIME 47.3 seconds 22.5-36.0 H (BEAKER) (test code = 760) POCT-GLUCOSE [id number] 12:53:00 Test Item Value Reference Range Interpretation Comments POC-GLUCOSE METER 203 mg/dL 70-110 H TESTED AT [facility] 6720 (BEAKER) (test code = FOSTER Paul [facility] 1538) [address] POCT-GLUCOSE [id number] 08:28:00 Test Item Value Reference Range Interpretation Comments POC-GLUCOSE METER 98 mg/dL 70-110 TESTED AT [facility] 6720 (BEAKER) (test code = FOSTER Paul [facility] [address] 1538) BASIC METABOLIC [id number] 05:52:00 Test Item Value Reference Range Interpretation [...] NOT APPLICABLE FOR DIALYSIS PATIEN TS. PROTHROMBIN TIME/[id number] 05:51:00 Test Item Value Reference Range Interpretation [...] PERCENT (BEAKER) (test code = 2801) POCT-GLUCOSE [id number] 20:54:00 Test Item Value Reference Range Interpretation Comments POC-GLUCOSE METER 126 mg/dL 70-110 H TESTED AT [place] [address] ([facility]) (test code = [facility] 1538) [address] POCT-GLUCOSE [id number] 18:47:00 Test Item Value Reference Range Interpretation Comments POC-GLUCOSE METER 70 mg/dL 70-110 TESTED AT [place] [address] ([facility]) (test code = [facility] [address] 1538) POCT-GLUCOSE [id number] 13:25:00 Test Item Value Reference Range Interpretation Comments POC-GLUCOSE METER 120 mg/dL 70-110 H TESTED AT [place] [address] ([facility]) (test code = [facility] 1538) [address] POCT-GLUCOSE [id number] 09:32:00 Test Item Value Reference Range Interpretation Comments POC-GLUCOSE METER 104 mg/dL 70-110 TESTED AT [place] [address] ([facility]) (test code = [facility] 1538) [address] BASIC METABOLIC [id number] 05:59:00 Test Item Value Reference Range Interpretation [...] NOT APPLICABLE FOR DIALYSIS PATIEN TS. PROTHROMBIN [id number] 05:20:00 Test Item Value Reference Range Interpretation [...] PERCENT (BEAKER) (test code = 2801) POCT-GLUCOSE [id number] 21:14:00 Test Item Value Reference Range Interpretation Comments POC-GLUCOSE METER 200 mg/dL 70-110 H TESTED AT [place] [address] ([facility] (test code = [facility] 1538) [address] POCT-GLUCOSE [id number] 17:34:00 Test Item Value Reference Range Interpretation Comments POC-GLUCOSE METER 143 mg/dL 70-110 H TESTED AT [place] [address] ([facility] 1538) [address] POCT-GLUCOSE [id number] 12:04:00 Test Item Value Reference Range Interpretation Comments POC-GLUCOSE METER 160 mg/dL 70-110 H TESTED AT [place] [address] ([facility] (test code = [facility] Humberto [facility] 1538) [address] POCT-GLUCOSE [id number] 08:08:00 Test Item Value Reference Range Interpretation Comments POC-GLUCOSE METER 154 mg/dL 70-110 H TESTED AT [place] [address] ([facility] (test code = [facility] 1538) [address] BASIC METABOLIC [id number] 06:33:00 Test Item Value Reference Range Interpretation [...] S NOT APPLICABLE FOR DIALYSIS PATIEN TED. [id number] 06:01:00 Test Item Value Reference Range Interpretation Comments PARTIAL THROMBOPLASTIN TIME 117.2 seconds 22.5-36.0 H (BEAKER) (test code = 760) PROTHROMBIN TIME/[id number] 05:56:00 Test Item Value Reference Range Interpretation [...] PERCENT (BEAKER) (test code = 280) POCT-GLUCOSE [id number] 21:37:00 Test Item Value Reference Range Interpretation Comments POC-GLUCOSE METER 121 mg/dL 70-110 H TESTED AT [facility] 6720 (BEAKER) (test code = [place]OST[place] 1538) [address] POCT-GLUCOSE [id number] 19:01:00 Test Item Value Reference Range Interpretation Comments POC-GLUCOSE METER 191 mg/dL 70-110 H TESTED AT [facility] 6720 (BEAKER) (test code = FOSTER Paul [facility] 1538) [address] [id number] 18:31:00 Test Item Value Reference Range Interpretation Comments PARTIAL THROMBOPLASTIN TIME 86.2 seconds 22.5-36.0 H (BEAKER) (test code = 760) POCT-GLUCOSE [id number] 13:05:00 Test Item Value Reference Range Interpretation Comments POC-GLUCOSE METER 130 mg/dL 70-110 H TESTED AT [place] [address] ([facility]) (test code = FOSTER Paul [facility] 1538) [address] RAD, CHEST, 1 VIEW, NON [id number] 12:22:00Reason for exam:->pleural effusionsShould this be performed at the bedside?->YesFINAL REPORT RAD, CHEST, 1 VIEW, NON DEPT INDICATION: pleural effusions COMPAR BRIAN: December 04, 2018 FINDINGS: Portable frontal view of the chest. IMPRESSION: Worsening interstitial edema. Stable right effusion tracking into the minor fissure. Persistent enlargement of the cardiac silhouette with stable surgical changes. Sternotomy wires are intact. Signed: JR Lc, Juliana Muniz Verified Date/Time: 12/07/2018 12:22:50 Reading Location: [address] Neuro Reading Room [id number] 11:39:00 Test Item Value Reference Range Interpretation Comments PARTIAL THROMBOPLASTIN TIME 100.1 seconds 22.5-36.0 H (BEAKER) (test code = 760) BODY FLUID CULTURE + GRAM [id number] 10:13:00 Test Item Value Reference Range Interpretation Comments CULTURE (BEAKER) (test No growth code = 1095) GRAM STAIN RESULT <1+ White blood cells (BEAKER) (test code = seen 1123) GRAM STAIN RESULT No organisms seen (BEAKER) (test code = 00351) POCT-GLUCOSE [id number] 08:51:00 Test Item Value Reference Range Interpretation Comments POC-GLUCOSE METER 90 mg/dL 70-110 TESTED AT [facility] 6720 (BEAKER) (test code = FOSTER Paul [facility] [address] 1538) BASIC METABOLIC [id number] 07:31:00 Test Item Value Reference Range Interpretation [...] S NOT APPLICABLE FOR DIALYSIS PATIEN TS. [id number] 05:21:00 Test Item Value Reference Range Interpretation Comments PARTIAL THROMBOPLASTIN TIME 104.0 seconds 22.5-36.0 H (BEAKER) (test code = 760) PROTHROMBIN TIME/[id number] 04:50:00 Test Item Value Reference Range Interpretation [...] 0-1 PERCENT (BEAKER) (test code = 2801) [id number] 20:33:00 Test Item Value Reference Range Interpretation Comments PARTIAL THROMBOPLASTIN TIME 87.6 seconds 22.5-36.0 H (BEAKER) (test code = 760) POCT-GLUCOSE [id number] 19:30:00 Test Item Value Reference Range Interpretation Comments POC-GLUCOSE METER 112 mg/dL 70-110 H TESTED AT [facility] 6720 (BEAKER) (test code = [place] 1538) [address] [id number] 13:55:00 Test Item Value Reference Range Interpretation Comments PARTIAL THROMBOPLASTIN TIME 85.9 seconds 22.5-36.0 H (BEAKER) (test code = 760) POCT-GLUCOSE [id number] 09:12:00 Test Item Value Reference Range Interpretation Comments POC-GLUCOSE METER 112 mg/dL 70-110 H TESTED AT [facility] 6720 ([facility] (test code = FOSTER Paul [place] 1538) [address] BASIC METABOLIC [id number] 08:53:00 Test Item Value Reference Range Interpretation [...] S NOT APPLICABLE FOR DIALYSIS PATIEN TS. [id number] 06:04:00 Test Item Value Reference Range Interpretation Comments PARTIAL THROMBOPLASTIN TIME 105.5 seconds 22.5-36.0 H (BEAKER) (test code = 760) PROTHROMBIN TIME/[id number] 05:44:00 Test Item Value Reference Range Interpretation [...] (test code = 2801) CT, CHEST, WITHOUT [id number] 03:17:00FINAL REPORT EXAM: CT of the chest, [...] left pleural effusion with associated compressive atelectasis. Sxsao-gc-rijtfwah loculated right pleural effusion with pleural thickening [...] [place] Verified Date/Time: 12/06/2018 03:17:03 Reading Location: [facility] B1 C013Y CT Body Reading Room POCT-GLUCOSE [id number] 21:22:00 Test Item Value Reference Range Interpretation Comments POC-GLUCOSE METER 171 mg/dL 70-110 H TESTED AT [place] [address] (BEAKER) (test code = FOSTER Paul [facility] 1538) [address] POCT-GLUCOSE [id number] 17:58:00 Test Item Value Reference Range Interpretation Comments POC-GLUCOSE METER 128 mg/dL 70-110 H TESTED AT [place] [address] (BEAKER) (test [facility] = [facility] 1538) [address] POCT-GLUCOSE [id number] 13:24:00 Test Item Value Reference Range Interpretation Comments POC-GLUCOSE METER 129 mg/dL 70-110 H TESTED AT [place] [address] (BEAKER) (test code = MARIA GNC Humberto [facility] 1538) [address] LACTATE DEHYDROGENASE (LDH)2018-12-05 13:14:00 Test Item Value Reference Range Interpretation Comments LACTATE DEHYDROGENASE (BEAKER) (test 291 U/L 125-220 H code = 635) [id number] 13:10:00 Test Item Value Reference Range Interpretation Comments PARTIAL THROMBOPLASTIN TIME 91.7 seconds 22.5-36.0 H (BEAKER) (test code = 760) POCT-GLUCOSE [id number] 08:19:00 Test Item Value Reference Range Interpretation Comments POC-GLUCOSE METER 106 mg/dL 70-110 TESTED AT [place] [address] ([facility] (test code = [facility] Humberto [place] 1538) [address] BASIC METABOLIC [id number] 07:05:00 Test Item Value Reference Range Interpretation [...] S NOT APPLICABLE FOR DIALYSIS PATIEN TS. [id number] 06:32:00 Test Item Value Reference Range Interpretation [...] 2.5-3.5 for patients with mechanical heart valves.PROTHROMBIN TIME/[id number] 06:30:00 Test Item Value Reference Range Interpretation [...] 0-1 PERCENT (BEAKER) (test code = 2801) [id number] 00:40:00 Test Item Value Reference Range Interpretation Comments PARTIAL THROMBOPLASTIN TIME 63.1 seconds 22.5-36.0 H (BEAKER) (test code = 760) POCT-GLUCOSE [id number] 00:12:00 Test Item Value Reference Range Interpretation Comments POC-GLUCOSE METER 124 mg/dL 70-110 H TESTED AT [facility] 6720 (BEAKER) (test code = [place] 1538) [address] HEPATITIS B SURFACE [id number] 22:54:00 Test Item Value Reference Range Interpretation Comments HEPATITIS B SURFACE ANTIGEN (2) Nonreactive Nonreactive (BEAKER) (test code = 2585) For chronic HD patients, draw HBsAg with each admission then every 30 days.BODY FLUID CELL COUNT WITH [id number] 20:34:00 Test Item Value Reference Range Interpretation Comments APPEARANCE FLUID (BEAKER) (test Cloudy Clear A code = 510) COLOR FLUID (BEAKER) (test code Brown Colorless, Straw A = 511) RBC FLUID (BEAKER) (test code = 68649 /cu mm <=1 H 513) ADJUSTED WBC [...] code = 2873) LACTATE DEHYDROGENASE (LDH), BODY [id number] 19:43:00 Test Item Value Reference Range Interpretation [...] local 1% lidocaine anesthesia was administered.A 4 Micronesian catheter was advanced into the largest pocket of the septated pleural effusion and 300 ccof bloody fluid was removed. The catheter was removed without immediate complication. Samples were sent for analysis. IMPRESSION:Uncomplicated ultrasound-guided right thoracentesis with 300 cc fluid removed. Signed: Raimundo Kim MDReport Verified Date/Time: 12/04/2018 18:00:50 Reading Location: [address] Ultrasound Reading Room RAD, CHEST, 1 VIEW, NON [id number] 17:23:00Reason for exam:->s/p right thoracentesisShould this be [...] MDReport Verified Date/Time: 12/04/2018 17:23:06 Reading Location: [facility] Mammo Reading Room C. DIFFICILE GDH [id number] 10:01:00 Test Item Value Reference Range Interpretation Comments CDT TOXIN (test code Negative Negative = [id number]) CDT GDH ANTIGEN Positive Negative A C. difficile present but (test code = toxin not detec jayla. [id number]) Indicates colon ization with non-toxige ron strain or level of tox in below detectable leve ls. No need for enteri c isolation. Gary atment is rarely needed ( only when strong clinical suspicion for Clostridium difficile infection) Testing performed by [employer] Rapid [employer]ette [employer]. For GDH, published sensitivity of the assay is 98.7% compared to cytotoxicity testing. For Toxin AB, published sensitivity is 87.8% and specificity 99.4% compared to cytotoxicity testing.Verification of kit performance was done by the [facility] Microbiology Lab prior to clinical use.[id number] 09:39:00 Test Item Value Reference Range Interpretation Comments PARTIAL THROMBOPLASTIN TIME 79.4 seconds 22.5-36.0 H (BEAKER) (test code = 760) OCCULT BLOOD, [id number] 05:59:00 Test Item Value Reference Range Interpretation Comments FECAL OCCULT BLOOD (BEAKER) (test Negative Negative code = 618) BASIC METABOLIC [id number] 02:50:00 Test Item Value Reference Range Interpretation [...] S NOT APPLICABLE FOR DIALYSIS PATIEN TS. [id number] 02:50:00 Test Item Value Reference Range Interpretation Comments PARTIAL THROMBOPLASTIN TIME 35.3 seconds 22.5-36.0 (BEAKER) (test code = 760) Prior to initiating heparinPROTHROMBIN TIME/[id number] 02:49:00 Test Item Value Reference Range Interpretation [...] acute neurological disease, and persistent tachyarrhythmia.HEPATIC FUNCTION [id number] 02:43:00 Test Item Value Reference Range Interpretation [...] 6-55 347) CBC W/PLT COUNT & AUTO [id number] 02:21:00 Test Item Value Reference Range Interpretation [...] PERCENT (BEAKER) (test code = 2801) POCT-GLUCOSE [id number] 21:22:00 Test Item Value Reference Range Interpretation Comments POC-GLUCOSE METER 192 mg/dL 70-110 H TESTED AT [facility] 6720 (BEAKER) (test code = [place] 1538) [address] TROPONIN [id number] 17:09:00 Test Item Value Reference Range Interpretation [...] and persistent tachyarrhythmia.RAD, CHEST, 1 VIEW, NON [id number] 15:36:00Reason for exam:->SHORTNESS OF BREATHShould this be performed at the bedside?->YesFINAL REPORT AP chest HISTORY: Shortness of breath. COMPARISON: 11/03/2017. IMPRESSION: Cardiomegaly. Mild interstitial edema. Right effusion and adjacent atelectasis. No pneumothorax. Signed: Mandy Chairez [facility]ep[facility] Verified Date/Time: 12/03/2018 15:36:19 Reading Location: [address] Radiology Reading Room TROPONIN [id number] 14:48:00 Test Item Value Reference Range Interpretation [...] B-TYPE NATRIURETIC PEPTIDE 2959 pg/mL 0-100 H (JARROD) (test code = 700) BASIC METABOLIC [id number] 14:40:00 Test Item Value Reference Range Interpretation [...] S NOT APPLICABLE FOR DIALYSIS PATIEN TS. [id number] 14:34:00 Test Item Value Reference Range Interpretation [...] (test code = 2801) RAD, CHEST, 2 [id number] 15:24:00Reason for Exam:->chronic Diastolic heart FailureFINAL REPORT [...] Verified Date/Time: 11/03/2018 15:24:42 Reading Location: [address] Radiology Reading Room MISCELLANEOUS LAB [id number] 08:22:00 Test Item Value Reference Range Interpretation Comments SCAN RESULT (test code = 3797167) PROTHROMBIN TIME/[id number] 08:37:00 Test Item Value Reference Range Interpretation Comments PROTIME (BEAKER) (test code = 24.8 seconds 11.7-14.7 H 759) INR (BEAKER) (test code = 370) 2.2 <=5.9 RECOMMENDED COUMADIN/WARFARIN INR THERAPY RANGESSTANDARD DOSE: 2.0 - 3.0 Includes: PROPHYLAXIS forvenous thrombosis, systemic embolization; TREATMENT for venous thrombosis and/or pulmonary embolus.HIGH RISK: Target INR is 2.5-3.5 for patients with mechanical heart valves.POCT-GLUCOSE [id number] 08:10:00 Test Item Value Reference Range Interpretation Comments POC-GLUCOSE METER 89 mg/dL 70-110 TESTED AT [facility] 6720 (BEAKER) (test code = FOSTER Paul [facility] [address] 1538) BASIC METABOLIC [id number] 06:29:00 Test Item Value Reference Range Interpretation [...] S NOT APPLICABLE FOR DIALYSIS PATIEN TS. [id number] 06:28:00 Test Item Value Reference Range Interpretation Comments MAGNESIUM (BEAKER) (test code = 1.8 mg/dL 1.6-2.6 627) [id number] 06:14:00 Test Item Value Reference Range Interpretation Comments PARTIAL THROMBOPLASTIN TIME 64.7 seconds 22.5-36.0 H (BEAKER) (test code = 760) CBC W/PLT COUNT & AUTO [id number] 05:58:00 Test Item Value Reference Range Interpretation [...] PERCENT (BEAKER) (test code = 2801) POCT-GLUCOSE [id number] 21:14:00 Test Item Value Reference Range Interpretation Comments POC-GLUCOSE METER 135 mg/dL 70-110 H TESTED AT [place] [address] ([facility]) (test code = [facility] 1538) [address] [id number] 19:36:00 Test Item Value Reference Range Interpretation Comments PARTIAL THROMBOPLASTIN TIME 88.6 seconds 22.5-36.0 H ([facility]) (test code = 760) POCT-GLUCOSE [id number] 18:27:00 Test Item Value Reference Range Interpretation Comments POC-GLUCOSE METER 88 mg/dL 70-110 TESTED AT [place] [address] ([facility]) (test code = [facility] [address] 1538) POCT-GLUCOSE [id number] 12:05:00 Test Item Value Reference Range Interpretation Comments POC-GLUCOSE METER 92 mg/dL 70-110 TESTED AT [place] [address] ([facility]) (test code = [facility] [address] 1538) [id number] 11:46:00 Test Item Value Reference Range Interpretation Comments PARTIAL THROMBOPLASTIN TIME 74.3 seconds 22.5-36.0 H (BEAKER) (test code = 760) POCT-GLUCOSE [id number] 10:36:00 Test Item Value Reference Range Interpretation Comments POC-GLUCOSE METER 101 mg/dL 70-110 TESTED AT [facility] 6720 ([facility]) (test code = FOSTER Paul [facility] 1538) [address] POCT-GLUCOSE [id number] 07:10:00 Test Item Value Reference Range Interpretation Comments POC-GLUCOSE METER 92 mg/dL 70-110 TESTED AT [facility] 6720 ([facility]) (test code = FOSTER Paul [facility] [address] 1538) PROTHROMBIN [id number] 01:41:00 Test Item Value Reference Range Interpretation Comments PROTIME (BEAKER) (test code = 22.8 seconds 11.7-14.7 H 759) INR (BEAKER) (test code = 370) 2.0 <=5.9 RECOMMENDED COUMADIN/WARFARIN INR THERAPY RANGESSTANDARD DOSE: 2.0 - 3.0 Includes: PROPHYLAXIS forvenous thrombosis, systemic embolization; TREATMENT for venous thrombosis and/or pulmonary embolus.HIGH RISK: Target INR is 2.5-3.5 for patients with mechanical heart valves.While on warfarin.[id number] 01:41:00 Test Item Value Reference Range Interpretation Comments PARTIAL THROMBOPLASTIN TIME 52.3 seconds 22.5-36.0 H (BEAKER) (test code = 760) While on warfarin.BASIC METABOLIC [id number] 01:37:00 Test Item Value Reference Range Interpretation [...] S NOT APPLICABLE FOR DIALYSIS PATIEN TS. [id number] 01:32:00 Test Item Value Reference Range Interpretation Comments MAGNESIUM (BEAKER) (test code = 1.8 mg/dL 1.6-2.6 627) CBC W/PLT COUNT & AUTO [id number] 01:18:00 Test Item Value Reference Range Interpretation [...] 0-1 PERCENT (BEAKER) (test code = 2801) [id number] 23:23:00 Test Item Value Reference Range Interpretation Comments PARTIAL THROMBOPLASTIN TIME 125.2 seconds 22.5-36.0 H ([facility]) (test code = 760) POCT-GLUCOSE [id number] 21:19:00 Test Item Value Reference Range Interpretation Comments POC-GLUCOSE METER 165 mg/dL 70-110 H TESTED AT [facility] 67 ([facility] [place]) (test code = [facility] 1538) [address] POCT-GLUCOSE [id number] 18:34:00 Test Item Value Reference Range Interpretation Comments POC-GLUCOSE METER 92 mg/dL 70-110 TESTED AT [facility] 6720 ([facility]) (test code = [facility] Humberto [facility] [address] 1538) [id number] 17:17:00 Test Item Value Reference Range Interpretation Comments PARTIAL THROMBOPLASTIN TIME 75.2 seconds 22.5-36.0 H ([facility]) (test code = 760) POCT-GLUCOSE [id number] 12:48:00 Test Item Value Reference Range Interpretation Comments POC-GLUCOSE METER 105 mg/dL 70-110 TESTED AT [place] [address] ([facility]) (test code = [facility] Humberto [facility] 1538) [address] RAD, CHEST, 1 VIEW, NON [id number] 11:00:00Reason for exam:->eval right effusionShould this be performed at the bedside?->YesFINAL REPORT Comparison: 08/15/2018 TECHNIQUE: Single view of the chest FINDINGS: Small to moderate right pleural effusion is stable. Small left pleural effusion may be slightly increased. Vascular congestion seen. No other significant change. Signed: Kyle Rome MDReport Verified Date/Time: 08/18/2018 11:00:36 Reading Location: [facility] Radiology Reading Room Electronicallysigned by: KYLE ROME M.D. on 08/18/2018 11:00 [id number] 09:48:00 Test Item Value Reference Range Interpretation Comments PARTIAL THROMBOPLASTIN TIME 48.8 seconds 22.5-36.0 H (BEAKER) (test code = 760) POCT-GLUCOSE [id number] 07:37:00 Test Item Value Reference Range Interpretation Comments POC-GLUCOSE METER 96 mg/dL 70-110 TESTED AT [facility] 6720 (BEAKER) (test code = [facility] [address] 1538) BASIC METABOLIC [id number] 02:24:00 Test Item Value Reference Range Interpretation [...] S NOT APPLICABLE FOR DIALYSIS PATIEN TS. [id number] 02:22:00 Test Item Value Reference Range Interpretation Comments MAGNESIUM (BEAKER) (test code = 1.7 mg/dL 1.6-2.6 627) [id number] 02:15:00 Test Item Value Reference Range Interpretation Comments PARTIAL THROMBOPLASTIN TIME 98.9 seconds 22.5-36.0 H (BEAKER) (test code = 760) PROTHROMBIN [id number] 02:13:00 Test Item Value Reference Range Interpretation [...] PERCENT (BEAKER) (test code = 2801) POCT-GLUCOSE [id number] 21:51:00 Test Item Value Reference Range Interpretation Comments POC-GLUCOSE METER 98 mg/dL 70-110 TESTED AT [place] [address] ([facility] (test code = [facility] [address] 1538) [id number] 18:51:00 Test Item Value Reference Range Interpretation Comments PARTIAL THROMBOPLASTIN TIME 56.1 seconds 22.5-36.0 H (BEAKER) (test code = 760) [id number] 17:06:00 Test Item Value Reference Range Interpretation Comments PARTIAL THROMBOPLASTIN TIME 121.9 seconds 22.5-36.0 H (BEAKER) (test code = 760) POCT-GLUCOSE [id number] 16:46:00 Test Item Value Reference Range Interpretation Comments POC-GLUCOSE METER 135 mg/dL 70-110 H TESTED AT [place] [address] ([facility]) (test code = [facility] 1538) [address] POCT-GLUCOSE [id number] 13:28:00 Test Item Value Reference Range Interpretation Comments POC-GLUCOSE METER 96 mg/dL 70-110 TESTED AT [place] [address] ([facility] (test code = [facility] [address] 1538) [id number] 09:15:00 Test Item Value Reference Range Interpretation Comments PARTIAL THROMBOPLASTIN TIME 58.1 seconds 22.5-36.0 H (BEAKER) (test code = 760) BASIC METABOLIC [id number] 07:31:00 Test Item Value Reference Range Interpretation [...] S NOT APPLICABLE FOR DIALYSIS PATIEN TS. [id number] 07:19:00 Test Item Value Reference Range Interpretation Comments PHOSPHORUS (BEAKER) (test code = 3.7 mg/dL 2.3-4.7 604) [id number] 07:19:00 Test Item Value Reference Range Interpretation Comments MAGNESIUM (BEAKER) (test code = 1.7 mg/dL 1.6-2.6 627) [id number] 07:07:00 Test Item Value Reference Range Interpretation Comments PARTIAL THROMBOPLASTIN TIME 124.4 seconds 22.5-36.0 H (BEAKER) (test code = 760) PROTHROMBIN TIME/[id number] 07:02:00 Test Item Value Reference Range Interpretation [...] 0-1 PERCENT (BEAKER) (test code = 2801) [id number] 23:01:00 Test Item Value Reference Range Interpretation Comments PARTIAL THROMBOPLASTIN TIME 46.5 seconds 22.5-36.0 H (AKER) (test code = 760) POCT-GLUCOSE [id number] 22:45:00 Test Item Value Reference Range Interpretation Comments POC-GLUCOSE METER 144 mg/dL 70-110 H TESTED AT [place] [address] ([facility]) (test code = [facility] 1538) [address] [id number] 15:02:00 Test Item Value Reference Range Interpretation Comments PARTIAL THROMBOPLASTIN TIME 56.1 seconds 22.5-36.0 H ([facility]) (test code = 760) POCT-GLUCOSE [id number] 14:39:00 Test Item Value Reference Range Interpretation Comments POC-GLUCOSE METER 189 mg/dL 70-110 H TESTED AT [place] [address] ([facility]) (test code = [facility] 1538) [address] HIV-1 PCR, [id number] 13:58:00 Test Item Value Reference Range Interpretation Comments HIV-1 NUMERIC RESULT ([facility]) (test 170 Cp/mL <20 H code = 2704) This test uses a Real-Time Polymerase Chain Reaction (RT-PCR) methodology to detect a highly conserved region of the HIV-1 gag gene and was performed using the ERICH AmpliPrep/ERICH TaqMan HIV-1 test kit version 2.0 ([employer]Reportable range for this assay is 20 - 10,000,000 copies per mL (1.3 - 7.0 Log copies/mL).[id number] 12:54:00 Test Item Value Reference Range Interpretation Comments PARTIAL THROMBOPLASTIN TIME 143.6 seconds 22.5-36.0 H (BEAKER) (test code = 760) [id number] 10:00:00Medical Cytology Report Case: [id number] Authorizing Provider: Alison Solano MD Collected: 08/13/2018 2606 Ordering Location: [address] Received: 08/14/2018 8411 Service Pathologist: Yamil Hamm MD Specimen: Pleural, Right RIGHT PLEURAL FLUID (CYTOSPINS AND CELL BLOCK): - NO MALIGNANT CELLS IDENTIFIED (SEE COMMENT) Signing Pathologist Direct Phone Line: [phone] signed by Ymail Hamm MD on 08/16/2018 [...] thoracentesis may be considered when fluid reaccumulates. 34753, 50215, 80029, 03412 x 2Left pleural effusion, history of AIDS, Kaposi's sarcoma, hepatitis C.RIGHT PLEURAL FLUID 300 mls bloody; 4 cytospins, cell blockCollected: [id number]: [id number] interpretation of this case included the use of immunohistochemistry or special stains. Please see the immunohistochemistry results in the COMMENT section. Immunohistochemistry technical testing was performed at [facility], Pathology Laboratory where it was developed and [...] Improvement Amendments of 1988 (CLIA-88) as qualified toperformerly [facility] high complexity clinical laboratory testing.[facility], Department of Pathology, [address] [place] [address], [facility], [facility], [address] [place] [address], [facility], Department of Pathology, [address] [place] [address], JOKU-GLUCOSE [id number] 08:29:00 Test Item Value Reference Range Interpretation Comments POC-GLUCOSE METER 96 mg/dL 70-110 TESTED AT [place] [address] ([facility]) (test code = FOSTER Paul [facility] [address] 1538) BODY FLUID CULTURE + GRAM [id number] 07:54:00 Test Item Value Reference Range Interpretation Comments CULTURE (BEAKER) (test code No growth = 1095) GRAM STAIN RESULT (BEAKER) <1+ WBCs (test code = 1123) GRAM STAIN RESULT (BEAKER) No organisms seen (test code = 39533) BASIC METABOLIC [id number] 06:30:00 Test Item Value Reference Range Interpretation [...] S NOT APPLICABLE FOR DIALYSIS PATIEN TS. [id number] 06:26:00 Test Item Value Reference Range Interpretation Comments MAGNESIUM (BEAKER) (test code = 1.6 mg/dL 1.6-2.6 627) [id number] 05:48:00 Test Item Value Reference Range Interpretation Comments PARTIAL THROMBOPLASTIN TIME 80.3 seconds 22.5-36.0 H (BEAKER) (test code = 760) While on warfarin.PROTHROMBIN [id number] 05:46:00 Test Item Value Reference Range Interpretation [...] valves.While on warfarin.CBC W/PLT COUNT & AUTO [id number] 05:28:00 Test Item Value Reference Range Interpretation [...] 0-1 PERCENT (BEAKER) (test code = 2801) [id number] 22:09:00 Test Item Value Reference Range Interpretation Comments PARTIAL THROMBOPLASTIN TIME 61.5 seconds 22.5-36.0 H (BEAKER) (test code = 760) RAD, CHEST, 1 VIEW, NON [id number] 20:20:00Reason for exam:->eval right effusionShould this be [...] Anderson Verified Date/Time: 08/15/2018 20:20:24 Reading Location: [facility] Radiology Reading Room POCT-GLUCOSE [id number] 19:05:00 Test Item Value Reference Range Interpretation Comments POC-GLUCOSE METER 87 mg/dL 70-110 TESTED AT [place] [address] ([facility] (test code = [facility] [address] 1538) POCT-GLUCOSE [id number] 13:12:00 Test Item Value Reference Range Interpretation Comments POC-GLUCOSE METER 162 mg/dL 70-110 H TESTED AT [place] [address] ([facility] (test code = [facility] 1538) [address] [id number] 12:48:00 Test Item Value Reference Range Interpretation Comments PARTIAL THROMBOPLASTIN TIME 89.1 seconds 22.5-36.0 H (BEAKER) (test code = 760) POCT-GLUCOSE [id number] 09:58:00 Test Item Value Reference Range Interpretation Comments POC-GLUCOSE METER 229 mg/dL 70-110 H TESTED AT [place] [address] (BEAKER) (test code = [facility] 1538) [address] BASIC METABOLIC [id number] 05:40:00 Test Item Value Reference Range Interpretation [...] PATIEN TS. CBC W/PLT COUNT & AUTO [id number] 05:38:00 Test Item Value Reference Range Interpretation [...] 0-1 PERCENT (BEAKER) (test code = 2801) [id number] 05:28:00 Test Item Value Reference Range Interpretation Comments MAGNESIUM (BEAKER) (test code = 1.8 mg/dL 1.6-2.6 627) [id number] 04:47:00 Test Item Value Reference Range Interpretation Comments PARTIAL THROMBOPLASTIN TIME 60.9 seconds 22.5-36.0 H (BEAKER) (test code = 760) PROTHROMBIN [id number] 04:46:00 Test Item Value Reference Range Interpretation Comments PROTIME (BEAKER) (test code = 17.9 seconds 11.7-14.7 H 759) INR (BEAKER) (test code = 370) 1.5 <=5.9 RECOMMENDED COUMADIN/WARFARIN INR THERAPY RANGESSTANDARD DOSE: 2.0 - 3.0 Includes: PROPHYLAXIS forvenous thrombosis, systemic embolization; TREATMENT for venous thrombosis and/or pulmonary embolus.HIGH RISK: Target INR is 2.5-3.5 for patients with mechanical heart valves.[id number] 20:56:00 Test Item Value Reference Range Interpretation Comments PARTIAL THROMBOPLASTIN TIME 52.1 seconds 22.5-36.0 H (BEAKER) (test code = 760) CT, CHEST, WITHOUT [id number] 19:06:00S/p fall in Nov--> right effusion, tapped [...] Tapia Verified Date/Time: 08/14/2018 19:06:09 Reading Location: [address] Reading Room [id number] 12:40:00 Test Item Value Reference Range Interpretation Comments PARTIAL THROMBOPLASTIN TIME 48.4 seconds 22.5-36.0 H (BEAKER) (test code = 760) CD4 T CELL [id number] 11:15:00 Test Item Value Reference Range Interpretation [...] 107-698 L (BEAKER) (test code = 3491) [id number] 10:48:00 Test Item Value Reference Range Interpretation Comments PHOSPHORUS (BEAKER) (test code = 5.2 mg/dL 2.3-4.7 H 604) BASIC METABOLIC [id number] 07:13:00 Test Item Value Reference Range Interpretation [...] S NOT APPLICABLE FOR DIALYSIS PATIEN TS. [id number] 07:11:00 Test Item Value Reference Range Interpretation Comments MAGNESIUM (BEAKER) (test code = 1.8 mg/dL 1.6-2.6 627) [id number] 07:00:00 Test Item Value Reference Range Interpretation Comments PARTIAL THROMBOPLASTIN TIME 59.2 seconds 22.5-36.0 H (BEAKER) (test code = 760) PROTHROMBIN [id number] 06:59:00 Test Item Value Reference Range Interpretation [...] 0-1 PERCENT (BEAKER) (test code = 2801) [id number] 00:30:00 Test Item Value Reference Range Interpretation Comments PARTIAL THROMBOPLASTIN TIME 56.7 seconds 22.5-36.0 H (BEAKER) (test code = 760) BODY FLUID CELL COUNT WITH [id number] 19:28:00 Test Item Value Reference Range Interpretation Comments APPEARANCE FLUID (BEAKER) (test Cloudy Clear A code = 510) COLOR FLUID (BEAKER) (test code Red Colorless, Straw A = 511) RBC FLUID (BEAKER) (test code = 29217 /cu mm <=1 H 513) ADJUSTED WBC [...] Tube (test code = 2873) ALBUMIN, BODY [id number] 18:40:00 Test Item Value Reference Range Interpretation Comments ALBUMIN FLUID (BEAKER) (test code = 2.1 gm/dL 501) Reference Range: No Normals Assay performance has not been validated for this type of specimen.LACTATE DEHYDROGENASE (LDH), BODY [id number] 18:40:00 Test Item Value Reference Range Interpretation [...] 125-220 H code = 635) HEPATIC FUNCTION [id number] 18:40:00 Test Item Value Reference Range Interpretation [...] 6-55 347) RAD, CHEST, 1 VIEW, NON [id number] 17:56:00Reason for exam:->post Right thoracentesisShould this be [...] MDReport Verified Date/Time: 08/13/2018 17:56:18 Reading Location: [facility] B1 C013W Consult Reading Room U/S, [id number] 16:22:00Reason for exam:->shortness of breath, recurrent right pleural effusionShould this be performed at the bedside?->NoFINAL REPORT Ultrasound guided right thoracentesis, 08/13/2018. Clinical His tory: Right pleural effusion. Modality: Ultrasound. Sedation: None. Manager Validation: Gini. Program Analyst: None. Estimated Blood Loss: 1cc Specimen: 1600 [...] Musa Verified Date/Time: 08/13/2018 16:22:16 Reading Location: [facility] P006J Ultrasound Reading Room [id number] 07:18:00 Test Item Value Reference Range Interpretation Comments MAGNESIUM (BEAKER) (test code = 2.0 mg/dL 1.6-2.6 627) BASIC METABOLIC [id number] 07:18:00 Test Item Value Reference Range Interpretation [...] PATIEN TS. RAD, CHEST, 1 VIEW, NON [id number] 06:25:00Reason for exam:->SOBShould this be performed at [...] Verified Date/Time: 08/13/2018 06:25:21 Reading Location: [address] Re ading Room [id number] 05:49:00 Test Item Value Reference Range Interpretation Comments PARTIAL THROMBOPLASTIN TIME 42.0 seconds 22.5-36.0 H (BEAKER) (test code = 760) PROTHROMBIN [id number] 05:48:00 Test Item Value Reference Range Interpretation [...] PERCENT (BEAKER) (test code = 2801) POCT-GLUCOSE [id number] 18:30:00 Test Item Value Reference Range Interpretation Comments POC-GLUCOSE METER 80 mg/dL 70-110 TESTED AT [facility] 6720 (BEAKER) (test code = [place] [address] 1538) RAD, CHEST, 1 VIEW, NON [id number] 13:46:00Reason for exam:->evaluate pleural effusionShould this be performed at the bedside?->YesFINAL REPORT Comparison: 08/02/2018 TECHNIQUE: Single view of the chest FINDINGS Bilateral interstitial and airspace opacities are stable. Bilateral pleural effusions seen, right greater than left. No gross new lung parenchymal changes. Post surgical changes in the mediastinum. IMPRESSION: No significant interval change. Signed: Kyle Rome Verified Date/Time: 08/06/2018 13:46:20 Reading Location: [facility] Radiology Reading Room [id number] 09:33:00 Test Item Value Reference Range Interpretation Comments PARTIAL THROMBOPLASTIN TIME 113.6 seconds 22.5-36.0 H (BEAKER) (test code = 760) [id number] 06:48:00 Test Item Value Reference Range Interpretation [...] heart valves.While on warfarin.While on warfarin.BASIC METABOLIC [id number] 06:45:00 Test Item Value Reference Range Interpretation [...] NOT APPLICABLE FOR DIALYSIS PATIEN TS. PROTHROMBIN [id number] 06:43:00 Test Item Value Reference Range Interpretation [...] WBC 0-0 (BEAKER) (test code = 413) [id number] 20:40:00 Test Item Value Reference Range Interpretation Comments PARTIAL THROMBOPLASTIN TIME 81.7 seconds 22.5-36.0 H (BEAKER) (test code = 760) [id number] 14:05:00 Test Item Value Reference Range Interpretation Comments PARTIAL THROMBOPLASTIN TIME 91.5 seconds 22.5-36.0 H (BEAKER) (test code = 760) BASIC METABOLIC [id number] 07:02:00 Test Item Value Reference Range Interpretation [...] S NOT APPLICABLE FOR DIALYSIS PATIEN TS. [id number] 06:47:00 Test Item Value Reference Range Interpretation [...] valves.Ok to add onOk to add onPROTHROMBIN TIME/[id number] 06:46:00 Test Item Value Reference Range Interpretation [...] 0-1 PERCENT (BEAKER) (test code = 2801) [id number] 16:22:00 Test Item Value Reference Range Interpretation Comments PARTIAL THROMBOPLASTIN TIME 76.1 seconds 22.5-36.0 H (BEAKER) (test code = 760) BODY FLUID CULTURE + GRAM [id number] 09:10:00 Test Item Value Reference Range Interpretation Comments CULTURE (BEAKER) (test code No growth = 1095) GRAM STAIN RESULT (BEAKER) <1+ WBCs (test code = 1123) GRAM STAIN RESULT (BEAKER) No organisms seen (test code = 42972) CBC W/PLT COUNT & AUTO [id number] 07:23:00 Test Item Value Reference Range Interpretation [...] (BEAKER) (test code = 413) BASIC METABOLIC [id number] 07:05:00 Test Item Value Reference Range Interpretation [...] S NOT APPLICABLE FOR DIALYSIS PATIEN TS. [id number] 06:53:00 Test Item Value Reference Range Interpretation [...] heart valves.Ok to add onOk to add [id number] 06:53:00 Test Item Value Reference Range Interpretation Comments PARTIAL THROMBOPLASTIN TIME 70.3 seconds 22.5-36.0 H (BEAKER) (test code = 760) PROTHROMBIN TIME/[id number] 06:52:00 Test Item Value Reference Range Interpretation Comments PROTIME (BEAKER) (test code = 17.5 seconds 11.7-14.7 H 759) INR (BEAKER) (test code = 370) 1.4 <=5.9 RECOMMENDED COUMADIN/WARFARIN INR THERAPY RANGESSTANDARD DOSE: 2.0 - 3.0 Includes: PROPHYLAXIS forvenous thrombosis, systemic embolization; TREATMENT for venous thrombosis and/or pulmonary embolus.HIGH RISK: Target INR is 2.5-3.5 for patients with mechanical heart valves.PROTHROMBIN TIME/[id number] 06:51:00 Test Item Value Reference Range Interpretation Comments PROTIME (BEAKER) (test code = 17.7 seconds 11.7-14.7 H 759) INR (BEAKER) (test code = 370) 1.5 <=5.9 RECOMMENDED COUMADIN/WARFARIN INR THERAPY RANGESSTANDARD DOSE: 2.0 - 3.0 Includes: PROPHYLAXIS forvenous thrombosis, systemic embolization; TREATMENT for venous thrombosis and/or pulmonary embolus.HIGH RISK: Target INR is 2.5-3.5 for patients with mechanical heart valves.While on warfarin.[id number] 22:47:00 Test Item Value Reference Range Interpretation Comments PARTIAL THROMBOPLASTIN TIME 73.6 seconds 22.5-36.0 H (BEAKER) (test code = 760) [id number] 13:08:00 Test Item Value Reference Range Interpretation Comments PARTIAL THROMBOPLASTIN TIME 49.2 seconds 22.5-36.0 H (BEAKER) (test code = 760) BASIC METABOLIC [id number] 06:56:00 Test Item Value Reference Range Interpretation [...] S NOT APPLICABLE FOR DIALYSIS PATIEN TS. [id number] 06:56:00 Test Item Value Reference Range Interpretation Comments PARTIAL THROMBOPLASTIN TIME 67.5 seconds 22.5-36.0 H (BEAKER) (test code = 760) [id number] 06:45:00 Test Item Value Reference Range Interpretation [...] valves.Ok to add onOk to add onPROTHROMBIN TIME/[id number] 06:44:00 Test Item Value Reference Range Interpretation [...] CELL DISTRIBUTION WIDTH 14.8 % 11.6-14.4 H (AKER) (test code = 412) PLATELET COUNT ([facility]) (test code 98 K/CU MM 150-450 L = 756) MEAN PLATELET VOLUME (AKER) 9.6 fL 9.4-12.4 (test code = 754) NUCLEATED RED BLOOD CELLS (AKER) 0 /100 WBC 0-0 (test code = 413) [id number] 02:18:00 Test Item Value Reference Range Interpretation Comments PARTIAL THROMBOPLASTIN TIME 67.1 seconds 22.5-36.0 H ([facility]) (test code = 760) [id number] 18:56:00 Test Item Value Reference Range Interpretation Comments PARTIAL THROMBOPLASTIN TIME 72.5 seconds 22.5-36.0 H (AKER) (test code = 760) POCT-GLUCOSE [id number] 13:08:00 Test Item Value Reference Range Interpretation Comments POC-GLUCOSE METER 121 mg/dL 70-110 H TESTED AT [facility] 6720 ([facility]) (test code = [place] 1538) [address] [id number] 12:07:00 Test Item Value Reference Range Interpretation Comments PARTIAL THROMBOPLASTIN TIME 50.7 seconds 22.5-36.0 H ([facility]) (test code = 760) Ok to add onPROTHROMBIN TIME/[id number] 12:05:00 Test Item Value Reference Range Interpretation Comments PROTIME ([facility]) (test code = 16.7 seconds 11.7-14.7 H 759) INR ([facility]) (test code = 370) 1.4 <=5.9 RECOMMENDED [...] = 413) RAD, CHEST, 1 VIEW, NON [id number] 11:24:00Reason for exam:->pleural effusionShould this be performed at the bedside?->YesFINAL REPORT AP chest HISTORY: Pleural effusion COMPARISON: 08/01/2018 IMPRESS ION:Intact skeleton. Cardiomegaly. Moderate interstitial edema. Moderate right and small left effusions. No pneumothorax. Signed: Mandy Chairez MDReport Verified Date/Time: 08/02/2018 11:24:33 Reading Location: [facility] C013X Ortho Consult Reading Room BASIC METABOLIC [id number] 02:55:00 Test Item Value Reference Range Interpretation [...] S NOT APPLICABLE FOR DIALYSIS PATIRUBÉN ULLOA [id number] 02:39:00 Test Item Value Reference Range Interpretation Comments PARTIAL THROMBOPLASTIN TIME 51.6 seconds 22.5-36.0 H (BEAKER) (test code = 760) CBC W/PLT COUNT & AUTO [id number] 02:30:00 Test Item Value Reference Range Interpretation [...] = 2801) BODY FLUID CELL COUNT WITH [id number] 21:13:00 Test Item Value Reference Range Interpretation Comments APPEARANCE FLUID (BEAKER) (test Bloody Clear A code = 510) COLOR FLUID (BEAKER) (test code Sunil Colorless, Straw A = 511) RBC FLUID (BEAKER) (test code = 55212 /cu mm <=1 H 513) ADJUSTED WBC [...] Tube (test code = 2873) ALBUMIN, BODY [id number] 20:00:00 Test Item Value Reference Range Interpretation Comments ALBUMIN FLUID (BEAKER) (test code = 2.1 gm/dL 501) Reference Range: No Normals Assay performance has not been validated for this type of specimen.LACTATE DEHYDROGENASE (LDH), BODY [id number] 20:00:00 Test Item Value Reference Range Interpretation [...] of specimen.RAD, CHEST, PA OR AP, 1 [id number] 17:08:00Ultrasound Room 1Reason for exam:->s/p Right sided [...] Vail Verified Date/Time: 08/01/2018 17:08:13 Reading Location: [facility] Radiology Reading Room U/S, [id number] 17:03:00 Laterality?->RightReason for exam:->large pleural effusionFINAL REPORT HISTORY: Right pleural effusion Following informed written consent, the patient's right posterior chest wall was prepped and draped in the usual sterile manner. 2% lidocaine was given locally for anesthesia. No conscious sedation was administered. Vital signs were monitored and remained stable. Using ultrasound guidance and a 5 Micronesian angiocatheter, access was gain ed to the [...] Seymour Verified Date/Time: 08/01/2018 17:03:15 Reading Location: [facility] P0[facility] Ultrasound Reading Room RAD, CHEST, 1 VIEW, NON [id number] 12:40:00Reason for exam:->pleural effusion; shortness of breathShould [...] MDReport Verified Date/Time: 08/01/2018 12:40:42 Reading Location: [facility] Radiology Reading Room APTT 2018-08-01 11:33:00 Test Item Value Reference Range Interpretation Comments PARTIAL THROMBOPLASTIN TIME 118.1 seconds 22.5-36.0 H (BEAKER) (test code = 760) BASIC METABOLIC [id number] 02:07:00 Test Item Value Reference Range Interpretation [...] S NOT APPLICABLE FOR DIALYSIS PATIEN TS. [id number] 01:55:00 Test Item Value Reference Range Interpretation [...] is 2.5-3.5 for patients with mechanical heart valves.[id number] 01:55:00 Test Item Value Reference Range Interpretation Comments PARTIAL THROMBOPLASTIN TIME 96.8 seconds 22.5-36.0 H (BEAKER) (test code = 760) CBC W/PLT COUNT & AUTO [id number] 01:38:00 Test Item Value Reference Range Interpretation [...] 0-1 PERCENT (BEAKER) (test code = 2807) [id number] 18:58:00 Test Item Value Reference Range Interpretation Comments PARTIAL THROMBOPLASTIN TIME 61.7 seconds 22.5-36.0 H (BEAKER) (test code = 760) [id number] 09:22:00 Test Item Value Reference Range Interpretation Comments PARTIAL THROMBOPLASTIN TIME 61.5 seconds 22.5-36.0 H (BEAKER) (test code = 760) BASIC METABOLIC [id number] 02:14:00 Test Item Value Reference Range Interpretation Comments SODIUM (BEAKER) 130 meq/L 136-145 L (test code = 381) POTASSIUM (BEAKER) 4.1 meq/L 3.5-5.1 (test code = 379) CHLORIDE (BEAKER) 93 meq/L 98-107 L (test code = 382) CO2 (BEAKER) (test 24 meq/L code = 355) BLOOD UREA NITROGEN 39 [...] S NOT APPLICABLE FOR DIALYSIS PATIEN TS. [id number] 01:43:00 Test Item Value Reference Range Interpretation [...] is 2.5-3.5 for patients with mechanical heart valves.[id number] 01:43:00 Test Item Value Reference Range Interpretation Comments PARTIAL THROMBOPLASTIN TIME 62.7 seconds 22.5-36.0 H (BEAKER) (test code = 760) CBC W/PLT COUNT & AUTO [id number] 01:32:00 Test Item Value Reference Range Interpretation [...] 0-1 PERCENT (BEAKER) (test code = 2801) [id number] 18:38:00 Test Item Value Reference Range Interpretation Comments PARTIAL THROMBOPLASTIN TIME 38.9 seconds 22.5-36.0 H (BEAKER) (test code = 760) Prior to initiating heparinPLATELET [id number] 18:17:00 Test Item Value Reference Range Interpretation Comments PLATELET COUNT (BEAKER) (test 115 K/CU MM 150-450 L code = 756) RAD, CHEST, 2 [id number] 18:05:00Reason for exam:->sob and pleural effusionFINAL REPORT [...] Sykes MDReport Verified Date/Time: 07/30/2018 18:05:46Reading Location: [address] Consult Reading Room C METABOLIC [id number] 05:26:00 Test Item Value Reference Range Interpretation [...] S NOT APPLICABLE FOR DIALYSIS PATIEN TS. [id number] 05:25:00 Test Item Value Reference Range Interpretation [...] 2.5-3.5 for patients with mechanical heart valves.PROTHROMBIN [id number] 05:24:00 Test Item Value Reference Range Interpretation [...] (test code = 2801) HEPATITIS B SURFACE [id number] 12:09:00 Test Item Value Reference Range Interpretation Comments HEPATITIS B SURFACE ANTIGEN (2) Nonreactive Nonreactive (BEAKER) (test code = 2585) POCT-GLUCOSE [id number] 07:50:00 Test Item Value Reference Range Interpretation Comments POC-GLUCOSE METER 93 mg/dL 70-110 TESTED AT [facility] 6720 (BEAKER) (test code = [place] [address] 1538) [id number] 04:59:00 Test Item Value Reference Range Interpretation [...] for patients with mechanical heart valves.BASIC METABOLIC [id number] 04:59:00 Test Item Value Reference Range Interpretation [...] PATIEN TS. CBC W/PLT COUNT & AUTO [id number] 04:51:00 Test Item Value Reference Range Interpretation [...] (test code = 2801) AFB CULTURE + [id number] 16:13:00 Test Item Value Reference Range Interpretation Comments CULTURE (BEAKER) (test No acid-fast bacilli code = 1095) isolated in 42 days AFB SMEAR (BEAKER) No acid fast bacilli (test code = 994) seen AFB CULTURE + [id number] 16:13:00 Test Item Value Reference Range Interpretation Comments CULTURE (BEAKER) (test No acid-fast bacilli code = 1095) isolated in 42 days AFB SMEAR (BEAKER) No acid fast bacilli (test code = 994) seen FUNGUS CULTURE + [id number] 07:13:00 Test Item Value Reference Range Interpretation Comments CULTURE (BEAKER) (test No fungus isolated in code = 1095) 28 days FUNGUS SMEAR (BEAKER) No fungi seen (test code = 1406) FUNGUS CULTURE + [id number] 07:13:00 Test Item Value Reference Range Interpretation Comments CULTURE (BEAKER) (test No fungus isolated in code = 1095) 28 days FUNGUS SMEAR (BEAKER) No fungi seen (test code = 1406) TISSUE [id number] 19:17:00Surgical Pathology Report Case: [id number] Authorizing Provider: Juliana Martinez MD Collected: 05/23/2018 0825 Ordering Location: [facility] Received: 05/23/2018 0923 SERVICES Pathologist: Brigida Parks MD Specimen: Soft Tissue, Other, LEFT GROIN - TISSUE BIOPSY SKIN AND SOFT TISSUE,GROIN,LEFT, BIOPSY: - ABSCESSES, GRANULOMAS AND CHRONIC INFLAMMATION - NEGATIVE FOR DYSPLASIA OR MALIGNANCY - AFB AND GMS STAINS ARE NEGATIVE (SEE COMMENT) Signing Pathologist Direct Phone Line: [phone] signed by Brigida Parks MD on 06/02/2018 at 7:17 PMCorrelation with culture studies is recommended.[id number] abscess groinLeft groin tissue biopsyReceived fresh labeled "soft tissue, other", description "left groin tissue biopsy" are two dark-porter, wrinkled,hair- bearing strips of skin measuring 1.5 and 2.6 cm in length, 0.3 cm in diameter and excised to a depth of 0.3 cm.Sectioning reveals no discrete masses.The specimen is entirely submitted in cassettesA1. DB/ewPOCT-GLUCOSE [id number] 08:51:00 Test Item Value Reference Range Interpretation Comments POC-GLUCOSE METER 101 mg/dL 70-110 TESTED AT [facility] 67[address] ([facility] (test code = [place] 1538) [address] CBC W/PLT COUNT & AUTO [id number] 06:01:00 Test Item Value Reference Range Interpretation [...] PERCENT (BEAKER) (test code = 2801) PROTHROMBIN [id number] 05:51:00 Test Item Value Reference Range Interpretation Comments PROTIME (BEAKER) (test code = 25.9 seconds 11.7-14.7 H 759) INR (BEAKER) (test code = 370) 2.4 <=5.9 RECOMMENDED COUMADIN/WARFARIN INR THERAPY RANGESSTANDARD DOSE: 2.0 - 3.0 Includes: PROPHYLAXIS forvenous thrombosis, systemic embolization; TREATMENT for venous thrombosis and/or pulmonary embolus.HIGH RISK: Target INR is 2.5-3.5 for patients with mechanical heart valves.BASIC METABOLIC [id number] 05:46:00 Test Item Value Reference Range Interpretation [...] NOT APPLICABLE FOR DIALYSIS PATIEN TS. POCT-GLUCOSE [id number] 20:34:00 Test Item Value Reference Range Interpretation Comments POC-GLUCOSE METER 261 mg/dL 70-110 H TESTED AT [place] [address] ([facility]) (test code = [facility] 1538) [address] POCT-GLUCOSE [id number] 18:12:00 Test Item Value Reference Range Interpretation Comments POC-GLUCOSE METER 139 mg/dL 70-110 H TESTED AT [place] [address] ([facility]) (test code = [facility] 1538) [address] POCT-GLUCOSE [id number] 11:51:00 Test Item Value Reference Range Interpretation Comments POC-GLUCOSE METER 147 mg/dL 70-110 H TESTED AT [place] [address] ([facility]) (test code = [facility] 1538) [address] POCT-GLUCOSE [id number] 08:42:00 Test Item Value Reference Range Interpretation Comments POC-GLUCOSE METER 104 mg/dL 70-110 TESTED AT [place] [address] ([facility]) (test code = [facility] 1538) [address] CBC W/PLT COUNT & AUTO [id number] 06:56:00 Test Item Value Reference Range Interpretation [...] (BEAKER) (test code = 2801) BASIC METABOLIC [id number] 06:49:00 Test Item Value Reference Range Interpretation [...] mg/dL 8.4-10.2 (test code = 697) EGFR ([facility]) (test 10 mL/min/1.73 ESTIMA JAYLA GFR IS code = 1092) sq m NOT ACCURATE CREATININE CLEARANCE IN PREDICTING GLOMERULAR FILTRATION RATE . ESTIMATED GFR I S NOT APPLICABLE FOR DIALYSIS PATIEN TS. PROTHROMBIN [id number] 06:46:00 Test Item Value Reference Range Interpretation Comments PROTIME ([facility]) (test code = 26.9 seconds 11.7-14.7 H 759) INR ([facility]) (test code = 370) 2.5 <=5.9 RECOMMENDED COUMADIN/WARFARIN INR THERAPY RANGESSTANDARD DOSE: 2.0 - 3.0 Includes: PROPHYLAXIS forvenous thrombosis, systemic embolization; TREATMENT for venous thrombosis and/or pulmonary embolus.HIGH RISK: Target INR is 2.5-3.5 for patients with mechanical heart valves.ANAEROBIC [id number] 00:38:00 Test Item Value Reference Range Interpretation Comments CULTURE ([facility]) (test No anaerobes isolated code = 1095) ANAEROBIC [id number] 00:38:00 Test Item Value Reference Range Interpretation Comments CULTURE ([facility]) (test No anaerobes isolated code = 1095) POCT-GLUCOSE [id number] 20:43:00 Test Item Value Reference Range Interpretation Comments POC-GLUCOSE METER 124 mg/dL 70-110 H TESTED AT [place] [address] ([facility]) (test code = [facility] 1538) [address] POCT-GLUCOSE [id number] 17:17:00 Test Item Value Reference Range Interpretation Comments POC-GLUCOSE METER 190 mg/dL 70-110 H TESTED AT [place] [address] ([facility]) (test code = [facility] 1538) [address] POCT-GLUCOSE [id number] 11:54:00 Test Item Value Reference Range Interpretation Comments POC-GLUCOSE METER 195 mg/dL 70-110 H TESTED AT [place] [address] ([facility]) (test code = [facility] 1538) [address] C. DIFFICILE GDH [id number] 11:16:00 Test Item Value Reference Range Interpretation Comments CDT TOXIN (test code Negative Negative = [id number]) CDT GDH ANTIGEN (test Negative Negative No ind ication of code = [id number]) Clostridi um difficile infection and n o colonization. Discontinue ent kenrick isolation and t herapy. Testing performed by [employer] Rapid Cassette Assay. For GDH, published sensitivity of the assay is 98.7% compared to cytotoxicity testing. For Toxin AB, published sensitivity is 87.8% and specificity 99.4% compared to cytotoxicity testing.Verification of kit performance was done by the [facility] Microbiology Lab prior to clinical use.SURGICALLY OBTAINED CULTURE + GRAM [id number] 09:22:00 Test Item Value Reference Interpretation Comments [...] No organisms seen (BEAKER) (test code = 492563) SURGICALLY OBTAINED CULTURE + GRAM [id number] 09:20:00 Test Item Value Reference Range Interpretation Comments CULTURE (BEAKER) (test code No growth = 1095) GRAM STAIN RESULT (BEAKER) 4+ WBCs (test code = 1123) GRAM STAIN RESULT (BEAKER) No organisms seen (test code = 68376) POCT-GLUCOSE [id number] 08:21:00 Test Item Value Reference Range Interpretation Comments POC-GLUCOSE METER 101 mg/dL 70-110 TESTED AT [facility] 67[address] (BEAKER) (test code = [place] 1538) [address] BASIC METABOLIC [id number] 07:57:00 Test Item Value Reference Range Interpretation [...] NOT APPLICABLE FOR DIALYSIS PATIEN TS. PROTHROMBIN [id number] 06:36:00 Test Item Value Reference Range Interpretation [...] PERCENT (BEAKER) (test code = 2801) POCT-GLUCOSE [id number] 21:40:00 Test Item Value Reference Range Interpretation Comments POC-GLUCOSE METER 176 mg/dL 70-110 H TESTED AT [place] [address] ([facility]) (test code = [place] [facility] 1538) [address] POCT-GLUCOSE [id number] 16:07:00 Test Item Value Reference Range Interpretation Comments POC-GLUCOSE METER 120 mg/dL 70-110 H TESTED AT [place] [address] ([facility]) (test code = [place] [facility] 1538) [address] POCT-GLUCOSE [id number] 08:31:00 Test Item Value Reference Range Interpretation Comments POC-GLUCOSE METER 119 mg/dL 70-110 H TESTED AT [place] [address] ([facility]) (test code = [place] [facility] 1538) [address] BASIC METABOLIC [id number] 08:19:00 Test Item Value Reference Range Interpretation [...] APPLICABLE FOR DIALYSIS PATIEN TS. VANCOMYCIN LEVEL, [id number] 08:16:00 Test Item Value Reference Range Interpretation Comments VANCOMYCIN RANDOM (BEAKER) (test 17.6 ug/mL code = 523) Reference Range: No NormalsPROTHROMBIN [id number] 07:21:00 Test Item Value Reference Range Interpretation [...] PERCENT (BEAKER) (test code = 2801) BLOOD [id number] 06:00:00 Test Item Value Reference Range Interpretation Comments CULTURE (BEAKER) (test No growth in 5 days code = 1095) BLOOD [id number] 00:00:00 Test Item Value Reference Range Interpretation Comments CULTURE (BEAKER) (test No growth in 5 days code = 1095) POCT-GLUCOSE [id number] 22:05:00 Test Item Value Reference Range Interpretation Comments POC-GLUCOSE METER 169 mg/dL 70-110 H TESTED AT [place] [address] (BEAKER) (test code = [place] [facility] 1538) [address] POCT-GLUCOSE [id number] 18:20:00 Test Item Value Reference Range Interpretation Comments POC-GLUCOSE METER 110 mg/dL 70-110 TESTED AT [place] [address] (BEAKER) (test code = [facility] Humberto [facility] 1538) [address] POCT-GLUCOSE [id number] 17:17:00 Test Item Value Reference Range Interpretation Comments POC-GLUCOSE METER 99 mg/dL 70-110 TESTED AT [place] [address] (BEAKER) ([facility] [address] 1538) SPIN/CONCENTRATION [id number] 14:49:00 Test Item Value Reference Range Interpretation Comments CONCENTRATION CHARGED (BEAKER) (test Done code = 2657) SPIN/CONCENTRATION [id number] 14:49:00 Test Item Value Reference Range Interpretation Comments CONCENTRATION CHARGED (BEAKER) (test Done code = 2657) POCT-GLUCOSE [id number] 12:13:00 Test Item Value Reference Range Interpretation Comments POC-GLUCOSE METER 188 mg/dL 70-110 H TESTED AT [place] [address] (BEAKER) (test code = [facility] 1538) [address] BASIC METABOLIC [id number] 09:56:00 Test Item Value Reference Range Interpretation [...] NOT APPLICABLE FOR DIALYSIS PATIEN TS. POCT-GLUCOSE [id number] 07:45:00 Test Item Value Reference Range Interpretation Comments POC-GLUCOSE METER 108 mg/dL 70-110 TESTED AT [facility] 6720 (BEAKER) (test code = [place] 1538) [address] CBC W/PLT COUNT & AUTO [id number] 07:00:00 Test Item Value Reference Range Interpretation [...] PERCENT (BEAKER) (test code = 2801) PROTHROMBIN [id number] 06:47:00 Test Item Value Reference Range Interpretation Comments PROTIME (BEAKER) (test code = 20.7 seconds 11.7-14.7 H 759) INR (BEAKER) (test code = 370) 1.8 <=5.9 RECOMMENDED COUMADIN/WARFARIN INR THERAPY RANGESSTANDARD DOSE: 2.0 - 3.0 Includes: PROPHYLAXIS forvenous thrombosis, systemic embolization; TREATMENT for venous thrombosis and/or pulmonary embolus.HIGH RISK: Target INR is 2.5-3.5 for patients with mechanical heart valves.POCT-GLUCOSE [id number] 20:42:00 Test Item Value Reference Range Interpretation Comments POC-GLUCOSE METER 134 mg/dL 70-110 H TESTED AT [place] [address] ([facility]) (test code = [facility] 1538) [address] POCT-GLUCOSE [id number] 13:29:00 Test Item Value Reference Range Interpretation Comments POC-GLUCOSE METER 209 mg/dL 70-110 H TESTED AT [place] [address] ([facility]) (test code = [facility] 1538) [address] POCT-GLUCOSE [id number] 08:53:00 Test Item Value Reference Range Interpretation Comments POC-GLUCOSE METER 103 mg/dL 70-110 TESTED AT [place] [address] ([facility]) (test code = [facility] 1538) [address] BASIC METABOLIC [id number] 07:47:00 Test Item Value Reference Range Interpretation [...] DIALYSIS PATIEN TS. WOUND CULTURE + GRAM [id number] 07:44:00 Test Item Value Reference Range Interpretation Comments CULTURE (BEAKER) (test code No growth = 1095) GRAM STAIN RESULT (BEAKER) No WBCs (test code = 1123) GRAM STAIN RESULT (BEAKER) No organisms seen (test code = 23154) [id number] 07:38:00 Test Item Value Reference Range Interpretation Comments PHOSPHORUS (BEAKER) (test code = 3.2 mg/dL 2.3-4.7 604) CBC W/PLT COUNT & AUTO [id number] 06:35:00 Test Item Value Reference Range Interpretation [...] PERCENT (BEAKER) (test code = 2801) PROTHROMBIN [id number] 06:32:00 Test Item Value Reference Range Interpretation Comments PROTIME (BEAKER) (test code = 23.2 seconds 11.7-14.7 H 759) INR (BEAKER) (test code = 370) 2.1 <=5.9 RECOMMENDED COUMADIN/WARFARIN INR THERAPY RANGESSTANDARD DOSE: 2.0 - 3.0 Includes: PROPHYLAXIS forvenous thrombosis, systemic embolization; TREATMENT for venous thrombosis and/or pulmonary embolus.HIGH RISK: Target INR is 2.5-3.5 for patients with mechanical heart valves.POCT-GLUCOSE [id number] 21:21:00 Test Item Value Reference Range Interpretation Comments POC-GLUCOSE METER 177 mg/dL 70-110 H TESTED AT [place] [address] (BEAKER) (test code = [facility] Humberto [facility] 1538) [address] POCT-GLUCOSE [id number] 17:53:00 Test Item Value Reference Range Interpretation Comments POC-GLUCOSE METER 89 mg/dL 70-110 TESTED AT [place] [address] ([facility] (test code = [facility] [address] 1538) IRON, TIBC, % SAT. (WITHOUT FERRITIN)2018-05-22 17:45:00 Test Item Value Reference Range Interpretation Comments IRON (BEAKER) (test code = 547) 63 ug/dL 40-160 TOTAL IRON BINDING CAPACITY 203 ug/dL 250-450 L (BEAKER) (test code = 769) IRON % SATURATION (2) (BEAKER) 31 % 20-55 (test code = 2590) [id number] 16:07:00 Test Item Value Reference Range Interpretation Comments PHOSPHORUS (BEAKER) (test code = 5.4 mg/dL 2.3-4.7 H 604) POCT-GLUCOSE [id number] 12:41:00 Test Item Value Reference Range Interpretation Comments POC-GLUCOSE METER 110 mg/dL 70-110 TESTED AT [place] [address] ([facility] (test code = [facility] 1538) [address] POCT-GLUCOSE [id number] 07:00:00 Test Item Value Reference Range Interpretation Comments POC-GLUCOSE METER 159 mg/dL 70-110 H TESTED AT [place] [address] ([facility] (test code = [facility] 1538) [address] BASIC METABOLIC [id number] 05:19:00 Test Item Value Reference Range Interpretation [...] S NOT APPLICABLE FOR DIALYSIS PATIEN TS. [id number] 05:18:00 Test Item Value Reference Range Interpretation Comments MAGNESIUM (BEAKER) (test code = 1.9 mg/dL 1.6-2.6 627) PROTHROMBIN [id number] 05:03:00 Test Item Value Reference Range Interpretation [...] PERCENT (BEAKER) (test code = 2801) POCT-GLUCOSE [id number] 23:35:00 Test Item Value Reference Range Interpretation Comments POC-GLUCOSE METER 190 mg/dL 70-110 H TESTED AT [facility] 6720 (BEAKER) (test code = [place] 1538) [address] POCT-GLUCOSE [id number] 17:16:00 Test Item Value Reference Range Interpretation Comments POC-GLUCOSE METER 122 mg/dL 70-110 H TESTED AT [facility] 6720 (BEAKER) (test code = [place] 1538) [address] U/S, TESTICULAR (SCROTUM)2018-05-21 14:53:00Reason for exam:->testicular swellingFINAL [...] MDReport Verified Date/Time: 05/21/2018 14:53:00 Reading Location: [address] UltrasoundReading Room POCT- GLUCOSE [id number] 11:22:00 Test Item Value Reference Range Interpretation Comments POC-GLUCOSE METER 144 mg/dL 70-110 H TESTED AT [place] [address] ([facility]) (test [facility] = [facility] 1538) [address] POCT-GLUCOSE [id number] 07:05:00 Test Item Value Reference Range Interpretation Comments POC-GLUCOSE METER 171 mg/dL 70-110 H TESTED AT [place] [address] ([facility]) (test code = [facility] Humberto [facility] 6050) [address] BASIC METABOLIC [id number] 06:19:00 Test Item Value Reference Range Interpretation [...] S NOT APPLICABLE FOR DIALYSIS PATIEN TS. [id number] 06:04:00 Test Item Value Reference Range Interpretation Comments MAGNESIUM (BEAKER) (test code = 1.9 mg/dL 1.6-2.6 627) PROTHROMBIN [id number] 05:31:00 Test Item Value Reference Range Interpretation [...] PERCENT (BEAKER) (test code = 2801) POCT-GLUCOSE [id number] 21:29:00 Test Item Value Reference Range Interpretation Comments POC-GLUCOSE METER 156 mg/dL 70-110 H TESTED AT [place] [address] ([facility]) (test code = [place] 1538) [address] POCT-GLUCOSE [id number] 18:14:00 Test Item Value Reference Range Interpretation Comments POC-GLUCOSE METER 93 mg/dL 70-110 TESTED AT [place] [address] ([facility]) (test code = [place] [address] 1538) PROTHROMBIN [id number] 13:26:00 Test Item Value Reference Range Interpretation Comments PROTIME ([facility]) (test code = 42.0 seconds 11.7-14.7 H 759) INR ([facility]) (test code = 370) 4.4 <=5.9 RECOMMENDED COUMADIN/WARFARIN INR THERAPY RANGESSTANDARD DOSE: 2.0 - 3.0 Includes: PROPHYLAXIS forvenous thrombosis, systemic embolization; TREATMENT for venous thrombosis and/or pulmonary embolus.HIGH RISK: Target INR is 2.5-3.5 for patients with mechanical heart valves.LACTIC ACID, VENOUS, WHOLE BLOOD 2018-05-20 13:18:00 Test Item Value Reference Range Interpretation Comments LACTATE BLOOD VENOUS (2) ([facility]) 0.8 mmol/L 0.5-2.2 (test code = 2872) Effective 01/04/2016: Units/Reference Range ChangeNew: 0.5-2.2 mmol/L Previous: 5-20 mg/dLPOCT-GLUCOSE [id number] 12:04:00 Test Item Value Reference Range Interpretation Comments POC-GLUCOSE METER 111 mg/dL 70-110 H TESTED AT [place] [address] ([facility]) (test code = [place] [facility] 1538) [address] CD4 T CELL [id number] 12:04:00 Test Item Value Reference Range Interpretation Comments CD4/CD8 RATIO FC ([facility]) (test code = 0.76 0.70-3.23 2126) HEPATITIS B SURFACE [id number] 11:32:00 Test Item Value Reference Range Interpretation Comments HEPATITIS B SURFACE ANTIGEN (2) Nonreactive Nonreactive ([facility]) (test code = 2585) VANCOMYCIN LEVEL, [id number] 11:10:00 Test Item Value Reference Range Interpretation Comments VANCOMYCIN RANDOM ([facility]) (test 20.7 ug/mL code = 523) Reference Range: No NormalsBASIC METABOLIC [id number] 09:19:00 Test Item Value Reference Range Interpretation [...] S NOT APPLICABLE FOR DIALYSIS PATIEN TS. [id number] 09:16:00 Test Item Value Reference Range Interpretation Comments MAGNESIUM (BEAKER) (test code = 2.1 mg/dL 1.6-2.6 627) RAD, CHEST, 1 VIEW, NON [id number] 07:56:00Reason for exam:->pleural effusion seen on outside hospital imagingShould this be performed at the bedside?->YesFINAL REPORT Chest one view compared to February 23 Discussion: Small effusions are similar. Replaced cardiac valve and atrial appendage clip noted. No pneumothorax. Unchanged cardiac pulmonary appearance. Signed: Rhea Colindresepdamion Verified Date/Time: 05/20/2018 07:56:50 Reading Location: [facility] Radiology Reading Room POCT-GLUCOSE [id number] 07:32:00 Test Item Value Reference Range Interpretation Comments POC-GLUCOSE METER 105 mg/dL 70-110 TESTED AT [facility] 6720 (BEAKER) (test code = [place] 1538) [address] CBC W/PLT COUNT & AUTO [id number] 07:01:00 Test Item Value Reference Range Interpretation [...] (BEAKER) (test code = 2801) VANCOMYCIN LEVEL, [id number] 22:39:00 Test Item Value Reference Range Interpretation Comments VANCOMYCIN RANDOM (BEAKER) (test 22.0 ug/mL code = 523) Reference Range: No NormalsCOMPREHENSIVE METABOLIC [id number] 22:39:00 Test Item Value Reference Range Interpretation [...] S NOT APPLICABLE FOR DIALYSIS PATIEN TS. [id number] 22:38:00 Test Item Value Reference Range Interpretation Comments PHOSPHORUS (BEAKER) (test code = 4.5 mg/dL 2.3-4.7 604) [id number] 22:38:00 Test Item Value Reference Range Interpretation Comments MAGNESIUM (JARROD) (test code = 2.0 mg/dL 1.6-2.6 627) [id number] 22:29:00 Test Item Value Reference Range Interpretation Comments PARTIAL THROMBOPLASTIN TIME 45.0 seconds 22.5-36.0 H (JARROD) (test code = 760) PROTHROMBIN [id number] 22:28:00 Test Item Value Reference Range Interpretation Comments PROTIME (JARROD) (test code = 48.1 seconds 11.7-14.7 H 759) INR (JARROD) (test code = 370) 5.2 <=5.9 RECOMMENDED COUMADIN/WARFARIN INR THERAPY RANGESSTANDARD DOSE: 2.0 - 3.0 Includes: PROPHYLAXIS forvenous thrombosis, systemic embolization; TREATMENT for venous thrombosis and/or pulmonary embolus.HIGH RISK: Target INR is 2.5-3.5 for patients with mechanical heart valves.POCT-GLUCOSE [id number] 21:38:00 Test Item Value Reference Range Interpretation Comments POC-GLUCOSE METER 105 mg/dL 70-110 TESTED AT [facility] 6720 (JARROD) (test code = [place] 1538) [address] XR Ankle Complete 3+ Views [id number] 22:30:07Patient: CALEB LUGO Date/Time05/12/2018 22:24 CDTReason for [...] FSigned (Electronic Signature): 05/12/2018 9:48 amBASIC METABOLIC [id number] 11:15:00 Test Item Value Reference Range Interpretation [...] (BEAKER) (test code = 700) BASIC METABOLIC [id number] 02:55:00 Test Item Value Reference Range Interpretation [...] H (BEAKER) (test code = 700) TROPONIN [id number] 02:30:00 Test Item Value Reference Range Interpretation [...] failure, acidosis, acute neurological disease, and persistent tachyarrhythmia.[id number] 02:21:00 Test Item Value Reference Range Interpretation Comments MAGNESIUM (BEAKER) (test code = 1.8 mg/dL 1.6-2.6 627) CBC W/PLT COUNT & AUTO [id number] 00:24:00 Test Item Value Reference Range Interpretation [...] 417) IMMATURE GRANULOCYTES-RELATIVE 1 % 0-1 PERCENT (JARROD) (test code = 2801) [id number] 00:01:00 Test Item Value Reference Range Interpretation Comments PROTIME (JARROD) (test code = 14.4 seconds 11.7-14.7 759) INR (JARROD) (test code = 370) 1.1 <=5.9 PARTIAL THROMBOPLASTIN TIME 28.5 seconds 22.5-36.0 (JARROD) (test code = 760) RECOMMENDED COUMADIN/WARFARIN INR THERAPY RANGESSTANDARD DOSE: 2.0 - 3.0 Includes: PROPHYLAXIS forvenous thrombosis, systemic embolization; TREATMENT for venous thrombosis and/or pulmonary embolus.HIGH RISK: Target INR is 2.5-3.5 for patients with mechanical heart valves.RAD, CHEST, 1 VIEW, NON [id number] 23:39:00Reason for exam:->chest painShould this be performed [...] for fluid overload-heart failure. Signed: Josiah Wan [facility] Verified Date/Time: 02/23/2018 23:39:58 Reading Location: [address] Reading Room POCT-GLUCOSE [id number] 19:47:00 Test Item Value Reference Range Interpretation Comments POC-GLUCOSE METER 94 mg/dL 70-110 TESTED AT [place] [address] ([facility]) (test code = [place] [address] 1538) POCT-GLUCOSE [id number] 17:07:00 Test Item Value Reference Range Interpretation Comments POC-GLUCOSE METER 176 mg/dL 70-110 H TESTED AT [place] [address] ([facility]) (test code = [place] 1538) [address] POCT-GLUCOSE [id number] 12:31:00 Test Item Value Reference Range Interpretation Comments POC-GLUCOSE METER 84 mg/dL 70-110 TESTED AT [place] [address] ([facility]) (test code = [place] [address] 1538) [id number] 10:40:00 Test Item Value Reference Range Interpretation Comments PARTIAL THROMBOPLASTIN TIME 88.5 seconds 22.5-36.0 H ([facility]) (test code = 760) OCCULT BLOOD, [id number] 09:36:00 Test Item Value Reference Range Interpretation Comments FECAL OCCULT BLOOD ([facility]) (test Negative Negative code = 618) POCT-GLUCOSE [id number] 08:51:00 Test Item Value Reference Range Interpretation Comments POC-GLUCOSE METER 223 mg/dL 70-110 H TESTED AT [place] [address] ([facility]) (test code = [place] 1538) [address] [id number] 04:14:00 Test Item Value Reference Range Interpretation Comments PARTIAL THROMBOPLASTIN TIME 80.3 seconds 22.5-36.0 H ([facility]) (test code = 760) While on warfarin.PROTHROMBIN TIME/[id number] 04:13:00 Test Item Value Reference Range Interpretation Comments PROTIME ([facility]) (test code = 23.8 seconds 11.7-14.7 H 759) INR ([facility]) (test code = 370) 2.1 <=5.9 RECOMMENDED COUMADIN/WARFARIN INR THERAPY RANGESSTANDARD DOSE: 2.0 - 3.0 Includes: PROPHYLAXIS forvenous thrombosis, systemic embolization; TREATMENT for venous thrombosis and/or pulmonary embolus.HIGH RISK: Target INR is 2.5-3.5 for patients with mechanical heart valves.While on warfarin.POCT-GLUCOSE METER 2018-02-02 21:56:00 Test Item Value Reference Range Interpretation Comments POC-GLUCOSE METER 206 mg/dL 70-110 H TESTED AT [place] [address] ([facility]) (test code = [place] 1538) [address] [id number] 19:50:00 Test Item Value Reference Range Interpretation Comments PARTIAL THROMBOPLASTIN TIME 59.7 seconds 22.5-36.0 H ([facility]) (test code = 760) POCT-GLUCOSE [id number] 17:00:00 Test Item Value Reference Range Interpretation Comments POC-GLUCOSE METER 183 mg/dL 70-110 H TESTED AT [place] [address] ([facility]) (test code = [place] 1538) [address] [id number] 12:45:00 Test Item Value Reference Range Interpretation Comments PARTIAL THROMBOPLASTIN TIME 89.5 seconds 22.5-36.0 H (BEAKER) (test code = 760) CBC W/PLT COUNT & AUTO [id number] 12:04:00 Test Item Value Reference Range Interpretation [...] WBC 0-0 (test code = 413) POCT-GLUCOSE [id number] 11:54:00 Test Item Value Reference Range Interpretation Comments POC-GLUCOSE METER 124 mg/dL 70-110 H TESTED AT [place] [address] ([facility]) (test code = [place] Paul [facility] 1538) [address] POCT-GLUCOSE [id number] 07:48:00 Test Item Value Reference Range Interpretation Comments POC-GLUCOSE METER 178 mg/dL 70-110 H TESTED AT [facility] 6720 (BEAKER) (test code = [place] 1538) [address] BASIC METABOLIC [id number] 05:15:00 Test Item Value Reference Range Interpretation [...] S NOT APPLICABLE FOR DIALYSIS PATIEN TS. [id number] 04:51:00 Test Item Value Reference Range Interpretation Comments MAGNESIUM (BEAKER) (test code = 1.8 mg/dL 1.6-2.6 627) [id number] 04:36:00 Test Item Value Reference Range Interpretation Comments PARTIAL THROMBOPLASTIN TIME 91.9 seconds 22.5-36.0 H (BEAKER) (test code = 760) While on warfarin.PROTHROMBIN TIME/[id number] 04:34:00 Test Item Value Reference Range Interpretation [...] METER 126 mg/dL 70-110 H TESTED AT [place] [address] ([facility]) (test code = [place] Paul [facility] 1538) [address] [id number] 21:23:00 Test Item Value Reference Range Interpretation Comments PARTIAL THROMBOPLASTIN TIME 84.1 seconds 22.5-36.0 H ([facility]) (test code = 760) POCT-GLUCOSE [id number] 16:57:00 Test Item Value Reference Range Interpretation Comments POC-GLUCOSE METER 156 mg/dL 70-110 H TESTED AT [place] [address] ([facility]) (test code = [place]ER Paul [facility] 1538) [address] [id number] 14:11:00 Test Item Value Reference Range Interpretation Comments PARTIAL THROMBOPLASTIN TIME 96.5 seconds 22.5-36.0 H ([facility]) (test code = 760) POCT-GLUCOSE [id number] 08:24:00 Test Item Value Reference Range Interpretation Comments POC-GLUCOSE METER 169 mg/dL 70-110 H TESTED AT [place] [address] ([facility]) (test code = [place] Paul [facility] 1538) [address] POCT-GLUCOSE [id number] 06:49:00 Test Item Value Reference Range Interpretation Comments POC-GLUCOSE METER 172 mg/dL 70-110 H TESTED AT [place] [address] ([facility]) (test code = [facility] Humberto [facility] 1538) [address] [id number] 04:59:00 Test Item Value Reference Range Interpretation Comments PARTIAL THROMBOPLASTIN TIME 64.7 seconds 22.5-36.0 H ([facility]) (test code = 760) While on warfarin.PROTHROMBIN TIME/[id number] 04:57:00 Test Item Value Reference Range Interpretation Comments PROTIME ([facility]) (test code = 17.5 seconds 11.7-14.7 H 759) INR ([facility]) (test code = 370) 1.4 <=5.9 RECOMMENDED COUMADIN/WARFARIN INR THERAPY RANGESSTANDARD DOSE: 2.0 - 3.0 Includes: PROPHYLAXIS forvenous thrombosis, systemic embolization; TREATMENT for venous thrombosis and/or pulmonary embolus.HIGH RISK: Target INR is 2.5-3.5 for patients with mechanical heart valves.While on warfarin.[id number] 21:55:00 Test Item Value Reference Range Interpretation Comments PARTIAL THROMBOPLASTIN TIME 68.8 seconds 22.5-36.0 H (BEAKER) (test code = 760) [id number] 13:54:00 Test Item Value Reference Range Interpretation Comments PARTIAL THROMBOPLASTIN TIME 51.7 seconds 22.5-36.0 H (AKER) (test code = 760) POCT-GLUCOSE [id number] 11:56:00 Test Item Value Reference Range Interpretation Comments POC-GLUCOSE METER 101 mg/dL 70-110 TESTED AT [place] [address] ([facility]) (test code = [facility] 1538) [address] POCT-GLUCOSE [id number] 07:58:00 Test Item Value Reference Range Interpretation Comments POC-GLUCOSE METER 111 mg/dL 70-110 H TESTED AT [place] [address] ([facility]) (test code = [facility] 1538) [address] BASIC METABOLIC [id number] 05:35:00 Test Item Value Reference Range Interpretation [...] S NOT APPLICABLE FOR DIALYSIS PATIEN TS. [id number] 05:34:00 Test Item Value Reference Range Interpretation Comments PHOSPHORUS (BEAKER) (test code = 4.2 mg/dL 2.3-4.7 604) [id number] 05:34:00 Test Item Value Reference Range Interpretation Comments MAGNESIUM (BEAKER) (test code = 1.7 mg/dL 1.6-2.6 627) PROTHROMBIN [id number] 05:24:00 Test Item Value Reference Range Interpretation Comments PROTIME (BEAKER) (test code = 18.8 seconds 11.7-14.7 H 759) INR (BEAKER) (test code = 370) 1.6 <=5.9 RECOMMENDED COUMADIN/WARFARIN INR THERAPY RANGESSTANDARD DOSE: 2.0 - 3.0 Includes: PROPHYLAXIS forvenous thrombosis, systemic embolization; TREATMENT for venous thrombosis and/or pulmonary embolus.HIGH RISK: Target INR is 2.5-3.5 for patients with mechanical heart valves.[id number] 05:05:00 Test Item Value Reference Range Interpretation Comments PARTIAL THROMBOPLASTIN TIME 96.6 seconds 22.5-36.0 H (BEAKER) (test code = 760) CBC W/PLT COUNT & AUTO [id number] 04:54:00 Test Item Value Reference Range Interpretation [...] (BEAKER) (test code = 2801) OCCULT BLOOD, [id number] 22:44:00 Test Item Value Reference Range Interpretation Comments FECAL OCCULT BLOOD (BEAKER) (test Positive Negative A code = 618) [id number] 21:14:00 Test Item Value Reference Range Interpretation Comments PARTIAL THROMBOPLASTIN TIME 69.1 seconds 22.5-36.0 H (BEAKER) (test code = 760) POCT-GLUCOSE [id number] 20:49:00 Test Item Value Reference Range Interpretation Comments POC-GLUCOSE METER 160 mg/dL 70-110 H TESTED AT [facility] 67 ([facility]) (test code = [place] 1538) [address] POCT-GLUCOSE [id number] 17:59:00 Test Item Value Reference Range Interpretation Comments POC-GLUCOSE METER 128 mg/dL 70-110 H TESTED AT [facility] 6720 ([facility]) (test code = [facility] 1538) [address] POCT-GLUCOSE [id number] 13:31:00 Test Item Value Reference Range Interpretation Comments POC-GLUCOSE METER 70 mg/dL 70-110 TESTED AT [place] [address] [facility] ([facility] [address]38) [id number] 13:16:00 Test Item Value Reference Range Interpretation Comments PARTIAL THROMBOPLASTIN TIME 78.3 seconds 22.5-36.0 H (BEAKER) (test code = 760) POCT-GLUCOSE [id number] 12:47:00 Test Item Value Reference Range Interpretation Comments POC-GLUCOSE METER 49 mg/dL 70-110 L TESTED AT [place] [address] ([facility]) (test code = [facility] [address]38) POCT-GLUCOSE [id number] 09:05:00 Test Item Value Reference Range Interpretation Comments POC-GLUCOSE METER 306 mg/dL 70-110 H TESTED AT [place] [address] ([facility]) (test code = [facility] 1538) [address] OCCULT BLOOD, [id number] 06:52:00 Test Item Value Reference Range Interpretation Comments FECAL OCCULT BLOOD (BEAKER) (test Positive Negative A code = 618) [id number] 05:42:00 Test Item Value Reference Range Interpretation [...] 20-55 (test code = 2590) BASIC METABOLIC [id number] 03:53:00 Test Item Value Reference Range Interpretation [...] S NOT APPLICABLE FOR DIALYSIS PATIRUBÉN TS. [id number] 03:51:00 Test Item Value Reference Range Interpretation Comments PHOSPHORUS (BEAKER) (test code = 3.2 mg/dL 2.3-4.7 604) [id number] 03:51:00 Test Item Value Reference Range Interpretation Comments PARTIAL THROMBOPLASTIN TIME 122.0 seconds 22.5-36.0 H (BEAKER) (test code = 760) While on warfarin.PROTHROMBIN [id number] 03:48:00 Test Item Value Reference Range Interpretation Comments PROTIME (BEAKER) (test code = 16.3 seconds 11.7-14.7 H 759) INR (BEAKER) (test code = 370) 1.3 <=5.9 RECOMMENDED COUMADIN/WARFARIN INR THERAPY RANGESSTANDARD DOSE: 2.0 - 3.0 Includes: PROPHYLAXIS forvenous thrombosis, systemic embolization; TREATMENT for venous thrombosis and/or pulmonary embolus.HIGH RISK: Target INR is 2.5-3.5 for patients with mechanical heart valves.While on warfarin.[id number] 03:44:00 Test Item Value Reference Range Interpretation Comments MAGNESIUM (BEAKER) (test code = 1.7 mg/dL 1.6-2.6 627) CBC W/PLT COUNT & AUTO [id number] 03:38:00 Test Item Value Reference Range Interpretation [...] PERCENT (BEAKER) (test code = 280) POCT-GLUCOSE [id number] 23:35:00 Test Item Value Reference Range Interpretation Comments POC-GLUCOSE METER 149 mg/dL 70-110 H TESTED AT [facility] 6720 ([facility]) (test code = [place] 1538) [address] [id number] 20:08:00 Test Item Value Reference Range Interpretation Comments PARTIAL THROMBOPLASTIN TIME 55.6 seconds 22.5-36.0 H (BEAKER) (test code = 760) [id number] 15:10:00 Test Item Value Reference Range Interpretation Comments PARTIAL THROMBOPLASTIN TIME 81.4 seconds 22.5-36.0 H (BEAKER) (test code = 760) POCT-GLUCOSE [id number] 11:58:00 Test Item Value Reference Range Interpretation Comments POC-GLUCOSE METER 124 mg/dL 70-110 H TESTED AT [facility] 6720 ([facility]) (test code = [place]OSTER Paul [facility] 1538) [address] RAD, CHEST, 1 VIEW, NON [id number] 08:59:00Reason for exam:->s/p mvrShould this be performed at the bedside?->YesFINAL REPORT Chest one view compared to January 24 Discussion: Left IJ line, atrial appendage clip, cardiac valve replacement noted. Mild interstitial congestion. No gross effusion or pneumothorax. IMPRESSIONS: No significant change Signed: Rhea Colindres Verified Date/Time:01/29/2018 08:59:39 Reading Location: [facility] Radiology Reading Room POCT-GLUCOSE [id number] 07:41:00 Test Item Value Reference Range Interpretation Comments POC-GLUCOSE METER 113 mg/dL 70-110 H TESTED AT [facility] 6720 ([facility]) (test code = FOSTER Paul [facility] 1538) [address] [id number] 07:23:00 Test Item Value Reference Range Interpretation Comments PARTIAL THROMBOPLASTIN TIME 89.8 seconds 22.5-36.0 H (BEAKER) (test code = 760) BASIC METABOLIC [id number] 06:05:00 Test Item Value Reference Range Interpretation [...] NOT APPLICABLE FOR DIALYSIS PATIEN TS. PROTHROMBIN [id number] 05:59:00 Test Item Value Reference Range Interpretation Comments PROTIME (BEAKER) (test code = 17.0 seconds 11.7-14.7 H 759) INR (BEAKER) (test code = 370) 1.4 <=5.9 RECOMMENDED COUMADIN/WARFARIN INR THERAPY RANGESSTANDARD DOSE: 2.0 - 3.0 Includes: PROPHYLAXIS forvenous thrombosis, systemic embolization; TREATMENT for venous thrombosis and/or pulmonary embolus.HIGH RISK: Target INR is 2.5-3.5 for patients with mechanical heart valves.While on warfarin.[id number] 05:56:00 Test Item Value Reference Range Interpretation Comments PHOSPHORUS (BEAKER) (test code = 5.3 mg/dL 2.3-4.7 H 604) [id number] 05:56:00 Test Item Value Reference Range Interpretation Comments MAGNESIUM (BEAKER) (test code = 1.9 mg/dL 1.6-2.6 627) CBC W/PLT COUNT & AUTO [id number] 05:38:00 Test Item Value Reference Range Interpretation [...] 0-1 PERCENT (BEAKER) (test code = 2801) [id number] 01:07:00 Test Item Value Reference Range Interpretation Comments PARTIAL THROMBOPLASTIN TIME 63.5 seconds 22.5-36.0 H (BEAKER) (test code = 760) [id number] 18:24:00 Test Item Value Reference Range Interpretation Comments PARTIAL THROMBOPLASTIN TIME 56.6 seconds 22.5-36.0 H (BEAKER) (test code = 760) POCT-GLUCOSE [id number] 18:14:00 Test Item Value Reference Range Interpretation Comments POC-GLUCOSE METER 101 mg/dL 70-110 TESTED AT [facility] 6720 (BEAKER) (test code = [facility] Humberto [place] 1538) [address] [id number] 13:57:00 Test Item Value Reference Range Interpretation Comments PARTIAL THROMBOPLASTIN TIME 122.3 seconds 22.5-36.0 H (BEAKER) (test code = 760) POCT-GLUCOSE [id number] 13:08:00 Test Item Value Reference Range Interpretation Comments POC-GLUCOSE METER 105 mg/dL 70-110 TESTED AT [facility] 6720 (BEAKER) (test code = [facility] 1538) [address] BASIC METABOLIC [id number] 04:31:00 Test Item Value Reference Range Interpretation [...] S NOT APPLICABLE FOR DIALYSIS PATIEN TS. [id number] 04:28:00 Test Item Value Reference Range Interpretation Comments PHOSPHORUS (BEAKER) (test code = 3.9 mg/dL 2.3-4.7 604) [id number] 04:28:00 Test Item Value Reference Range Interpretation Comments MAGNESIUM (BEAKER) (test code = 1.7 mg/dL 1.6-2.6 627) HEPATIC FUNCTION [id number] 04:28:00 Test Item Value Reference Range Interpretation [...] (test code = 33 U/L 6-55 347) [id number] 04:20:00 Test Item Value Reference Range Interpretation Comments PARTIAL THROMBOPLASTIN TIME 106.2 seconds 22.5-36.0 H (BEAKER) (test code = 760) While on warfarin.PROTHROMBIN TIME/[id number] 04:15:00 Test Item Value Reference Range Interpretation [...] valves.While on warfarin.CBC W/PLT COUNT & AUTO [id number] 04:05:00 Test Item Value Reference Range Interpretation [...] H PERCENT (BEAKER) (test code = 2802) POCT-GLUCOSE [id number] 00:29:00 Test Item Value Reference Range Interpretation Comments POC-GLUCOSE METER 119 mg/dL 70-110 H TESTED AT [place] [address] ([facility]) (test code = [place] Paul [place] 1538) [address] [id number] 00:24:00 Test Item Value Reference Range Interpretation Comments PARTIAL THROMBOPLASTIN TIME 72.4 seconds 22.5-36.0 H ([facility]) (test code = 760) POCT-GLUCOSE [id number] 18:33:00 Test Item Value Reference Range Interpretation Comments POC-GLUCOSE METER 158 mg/dL 70-110 H TESTED AT [place] [address] ([facility]) (test code = FOSTER Paul [place] 1538) [address] [id number] 18:22:00 Test Item Value Reference Range Interpretation Comments PARTIAL THROMBOPLASTIN TIME 78.6 seconds 22.5-36.0 H ([facility]) (test code = 760) POCT-GLUCOSE [id number] 12:20:00 Test Item Value Reference Range Interpretation Comments POC-GLUCOSE METER 110 mg/dL 70-110 TESTED AT [place] [address] ([facility]) (test code = FOSTER Paul [facility] 1538) [address] [id number] 12:04:00 Test Item Value Reference Range Interpretation Comments PARTIAL THROMBOPLASTIN TIME 98.0 seconds 22.5-36.0 H ([facility]) (test code = 760) [id number] 04:11:00 Test Item Value Reference Range Interpretation Comments PROTIME (BEAKER) (test code = 15.2 seconds 11.7-14.7 H 759) INR ([facility]) (test code = 370) 1.2 <=5.9 PARTIAL THROMBOPLASTIN TIME 67.9 seconds 22.5-36.0 H ([facility]) (test code = 760) RECOMMENDED COUMADIN/WARFARIN INR THERAPY RANGESSTANDARD DOSE: 2.0 - 3.0 Includes: PROPHYLAXIS forvenous thrombosis, systemic embolization; TREATMENT for venous thrombosis and/or pulmonary embolus.HIGH RISK: Target INR is 2.5-3.5 for patients with mechanical heart valves.While on warfarin.While on warfarin. PROTHROMBIN [id number] 04:10:00 Test Item Value Reference Range Interpretation Comments PROTIME (BEAKER) (test code = 15.2 seconds 11.7-14.7 H 759) INR ([facility]) (test code = 370) 1.2 <=5.9 RECOMMENDED COUMADIN/WARFARIN INR THERAPY RANGESSTANDARD DOSE: 2.0 - 3.0 Includes: PROPHYLAXIS forvenous thrombosis, systemic embolization; TREATMENT for venous thrombosis and/or pulmonary embolus.HIGH RISK: Target INR is 2.5-3.5 for patients with mechanical heart valves.BASIC METABOLIC [id number] 03:53:00 Test Item Value Reference Range Interpretation [...] PATIEN TS. CBC W/PLT COUNT & AUTO [id number] 03:50:00 Test Item Value Reference Range Interpretation [...] H PERCENT (BEAKER) (test code = 2801) [id number] 03:45:00 Test Item Value Reference Range Interpretation Comments PHOSPHORUS (BEAKER) (test code = 4.7 mg/dL 2.3-4.7 604) [id number] 03:45:00 Test Item Value Reference Range Interpretation Comments MAGNESIUM (BEAKER) (test code = 2.0 mg/dL 1.6-2.6 627) HEPATIC FUNCTION [id number] 03:45:00 Test Item Value Reference Range Interpretation [...] (test code = 36 U/L 6-55 347) [id number] 22:16:00 Test Item Value Reference Range Interpretation Comments PARTIAL THROMBOPLASTIN TIME 60.7 seconds 22.5-36.0 H (BEAKER) (test code = 760) POCT-GLUCOSE [id number] 18:32:00 Test Item Value Reference Range Interpretation Comments POC-GLUCOSE METER 125 mg/dL 70-110 H TESTED AT [facility] 6720 ([facility]) (test code = [place] 1538) [address] CBC (HEMOGRAM ONLY)2018-01-26 17:21:00 Test Item Value [...] (BEAKER) (test code = 413) BASIC METABOLIC [id number] 07:16:00 Test Item Value Reference Range Interpretation [...] S NOT APPLICABLE FOR DIALYSIS PATIEN TS. [id number] 07:13:00 Test Item Value Reference Range Interpretation Comments PHOSPHORUS (BEAKER) (test code = 4.3 mg/dL 2.3-4.7 604) [id number] 07:13:00 Test Item Value Reference Range Interpretation Comments MAGNESIUM (BEAKER) (test code = 2.0 mg/dL 1.6-2.6 627) HEPATIC FUNCTION [id number] 07:13:00 Test Item Value Reference Range Interpretation [...] (test code = 37 U/L 6-55 347) [id number] 07:12:00 Test Item Value Reference Range Interpretation [...] PERCENT (BEAKER) (test code = 2801) BLOOD [id number] 00:00:00 Test Item Value Reference Range Interpretation Comments CULTURE (BEAKER) (test No growth in 5 days code = 1095) BLOOD [id number] 00:00:00 Test Item Value Reference Range Interpretation Comments CULTURE (BEAKER) (test No growth in 5 days code = 1095) POCT-GLUCOSE [id number] 23:37:00 Test Item Value Reference Range Interpretation Comments POC-GLUCOSE METER 87 mg/dL 70-110 TESTED AT [facility] 6720 ([facility] (test [place] = [place] [address] 1538) [id number] 23:06:00 Test Item Value Reference Range Interpretation Comments PARTIAL THROMBOPLASTIN TIME 81.8 seconds 22.5-36.0 H (BEAKER) (test code = 760) POCT-GLUCOSE [id number] 20:42:00 Test Item Value Reference Range Interpretation Comments POC-GLUCOSE METER 193 mg/dL 70-110 H TESTED AT [facility] 6720 ([facility] (test code = [place] 1538) [address] HEMOGLOBIN AND [id number] 17:40:00 Test Item Value Reference Range Interpretation Comments HEMOGLOBIN (BEAKER) (test code = 8.4 GM/DL 13.7-17.5 L 410) HEMATOCRIT (BEAKER) (test code = 25.4 % 40.1-51.0 L 411) [id number] 13:06:00 Test Item Value Reference Range Interpretation Comments PARTIAL THROMBOPLASTIN TIME 61.4 seconds 22.5-36.0 H (BEAKER) (test code = 760) POCT-GLUCOSE [id number] 12:56:00 Test Item Value Reference Range Interpretation Comments POC-GLUCOSE METER 116 mg/dL 70-110 H TESTED AT [facility] 6720 (BEAKER) (test code = [facility] 1538) [address] [id number] 06:43:00 Test Item Value Reference Range Interpretation [...] 37 % 20-55 (test code = 2590) [id number] 05:32:00 Test Item Value Reference Range Interpretation Comments PARTIAL THROMBOPLASTIN TIME 63.7 seconds 22.5-36.0 H (BEAKER) (test code = 760) BASIC METABOLIC [id number] 05:03:00 Test Item Value Reference Range Interpretation [...] APPLICABLE FOR DIALYSIS PATIEN TS. HEPATIC FUNCTION [id number] 05:00:00 Test Item Value Reference Range Interpretation [...] (test code = 41 U/L 6-55 347) [id number] 04:40:00 Test Item Value Reference Range Interpretation [...] 0-0 (BEAKER) (test code = 413) POCT-GLUCOSE [id number] 00:30:00 Test Item Value Reference Range Interpretation Comments POC-GLUCOSE METER 112 mg/dL 70-110 H TESTED AT [facility] 6720 ([facility] (test code = [place] 1538) [address] CBC W/PLT COUNT & AUTO [id number] 19:16:00 Test Item Value Reference Range Interpretation [...] PERCENT (BEAKER) (test code = 2801) POCT-GLUCOSE [id number] 18:27:00 Test Item Value Reference Range Interpretation Comments POC-GLUCOSE METER 102 mg/dL 70-110 TESTED AT [facility] 6720 (BEAKER) (test code = FOSTER [place] 1538) [address] POCT-GLUCOSE [id number] 13:01:00 Test Item Value Reference Range Interpretation Comments POC-GLUCOSE METER 119 mg/dL 70-110 H TESTED AT [facility] 6720 (BEAKER) (test code = FOSTER [place] 1538) [address] RAD, CHEST, 1 VIEW, NON [id number] 10:59:00Reason for exam:->ptxShould this be performed at [...] [facility] Diagnostic Imaging Reading Room - [place] [address] BRONCHIAL CULTURE + GRAM STAIN 2018-01-24 08:53:00 Test Item Value Reference Range Interpretation Comments CULTURE (BEAKER) 2+ Normal respiratory (test code = 1095) pete present GRAM STAIN RESULT 4+ White blood cells (BEAKER) (test code = seen 1123) GRAM STAIN RESULT No organisms seen (BEAKER) (test code = 37586) POCT-GLUCOSE [id number] 06:28:00 Test Item Value Reference Range Interpretation Comments POC-GLUCOSE METER 119 mg/dL 70-110 H TESTED AT [facility] 6720 (BEAKER) (test code = [facility] 1538) [address] BASIC METABOLIC [id number] 04:41:00 Test Item Value Reference Range Interpretation [...] WBC 0-0 (BEAKER) (test code = 413) [id number] 04:21:00 Test Item Value Reference Range Interpretation Comments MAGNESIUM (BEAKER) (test code = 2.0 mg/dL 1.6-2.6 627) HEPATIC FUNCTION [id number] 04:21:00 Test Item Value Reference Range Interpretation [...] = 36 U/L 6-55 347) Specimen slightly [id number] 04:13:00 Test Item Value Reference Range Interpretation Comments PARTIAL THROMBOPLASTIN TIME 72.1 seconds 22.5-36.0 H (BEAKER) (test code = 760) BLOOD GAS, [id number] 04:13:00 Test Item Value Reference Range Interpretation [...] (test code = 1819) 100.0 % POCT-GLUCOSE [id number] 00:08:00 Test Item Value Reference Range Interpretation Comments POC-GLUCOSE METER 150 mg/dL 70-110 H TESTED AT [facility] 6720 ([facility]) (test code = [place] 1538) [address] POCT-GLUCOSE [id number] 18:45:00 Test Item Value Reference Range Interpretation Comments POC-GLUCOSE METER 162 mg/dL 70-110 H TESTED AT [facility] 6720 ([facility] (test code = F[place] 1538) [address] POCT-GLUCOSE [id number] 13:14:00 Test Item Value Reference Range Interpretation Comments POC-GLUCOSE METER 176 mg/dL 70-110 H TESTED AT [facility] 6720 (BEAKER) (test code = [place] 1538) [address] POCT-GLUCOSE [id number] 10:44:00 Test Item Value Reference Range Interpretation Comments POC-GLUCOSE METER 146 mg/dL 70-110 H TESTED AT [facility] 6720 (BEAKER) (test code = F[place] 1538) [address] BLOOD GAS, [id number] 10:32:00 Test Item Value Reference Range Interpretation [...] 40.0 % RAD, CHEST, 1 VIEW, NON [id number] 09:14:00Reason for exam:->ptxShould this be performed at the bedside?->YesFINAL REPORT COMPARISON: 01/22/2018 TECHNIQUE: Single view of the chest FINDINGS: Bilateral interstitial and airspace opacities again seen. Small pleural effusions are suspected. No gross new lung parenchymal changes. There is a tiny right apical pneumothorax. Support lines and tubes are stable. IMPRESSION: No significant interval change. Signed: Kyle Romeepdamion Verified Date/Time: 01/23/2018 09:14:48 Reading Location: [facility] Radiology Reading Room Electronically sign ed by: KYLE ROME M.D. on 01/23/2018 09:14 AMBLOOD [id number] 08:09:00 Test Item Value Reference Range Interpretation Comments CULTURE (BEAKER) A From Aerobi c Bottle (test code = Only [place] 1095) species GRAM STAIN From aerobic RESULT (BEAKER) bottle only: gram (test code = positive rods 1123) NOT DETECTEDPanel is negative for [employer] BCID-detectable organisms. Please refer to traditional culture and sensitivity results as they become available.Other organisms and resistance markers not contained in this PCR panel cannot be excluded and follow-up of traditional culture results is required. This sample was tested at the [facility] Clinical Microbiology Laboratory using the [employer] Platform Blood Culture ID Panel. This test is FDA cleared for in vitro diagnostic use and has been verified and approved by the [facility] Clinical Microbiology laboratory for clinical use. Reference Range: Not DetectedBLOOD GAS, [id number] 04:45:00 Test Item Value Reference Range Interpretation [...] code = 1819) 40.0 % BASIC METABOLIC [id number] 04:39:00 Test Item Value Reference Range Interpretation [...] APPLICABLE FOR DIALYSIS PATIEN TS. Specimen slightly [id number] 04:35:00 Test Item Value Reference Range Interpretation Comments MAGNESIUM (BEAKER) (test code = 1.8 mg/dL 1.6-2.6 627) HEPATIC FUNCTION [id number] 04:35:00 Test Item Value Reference Range Interpretation [...] = 40 U/L 6-55 347) Specimen slightly [id number] 04:18:00 Test Item Value Reference Range Interpretation [...] (AKER) (test code = 412) PLATELET COUNT ([facility]) (test code 85 K/CU MM 150-450 L = 756) MEAN PLATELET VOLUME (AKER) 10.1 fL 9.4-12.4 (test code = 754) NUCLEATED RED BLOOD CELLS (AKER) 0 /100 WBC 0-0 (test code = 413) POCT-GLUCOSE [id number] 00:52:00 Test Item Value Reference Range Interpretation Comments POC-GLUCOSE METER 145 mg/dL 70-110 H TESTED AT [place] [address] ([facility]) (test code = [facility] 1538) [address] BLOOD [id number] 00:00:00 Test Item Value Reference Range Interpretation Comments CULTURE ([facility]) (test No growth in 5 days code = 1095) POCT-GLUCOSE [id number] 18:17:00 Test Item Value Reference Range Interpretation Comments POC-GLUCOSE METER 97 mg/dL 70-110 TESTED AT [place] [address] ([facility]) (test code = [facility] [address] 1538) POCT-GLUCOSE [id number] 13:26:00 Test Item Value Reference Range Interpretation Comments POC-GLUCOSE METER 138 mg/dL 70-110 H TESTED AT [place] [address] ([facility]) (test code = [facility] 1538) [address] BLOOD GAS, [id number] 10:32:00 Test Item Value Reference Range Interpretation [...] (test code = 1819) 40.0 % POCT-GLUCOSE [id number] 06:21:00 Test Item Value Reference Range Interpretation Comments POC-GLUCOSE METER 138 mg/dL 70-110 H TESTED AT [facility] 6720 (BEAKER) (test code = FOSTER Paul [facility] 1538) [address] BASIC METABOLIC [id number] 04:25:00 Test Item Value Reference Range Interpretation [...] APPLICABLE FOR DIALYSIS PATIEN TS. Specimen slightly [id number] 04:24:00 Test Item Value Reference Range Interpretation Comments MAGNESIUM (BEAKER) (test code = 2.1 mg/dL 1.6-2.6 627) HEPATIC FUNCTION [id number] 04:24:00 Test Item Value Reference Range Interpretation [...] /100 WBC 0-0 (test code = 413) [id number] 04:07:00 Test Item Value Reference Range Interpretation Comments PARTIAL THROMBOPLASTIN TIME 80.2 seconds 22.5-36.0 H (BEAKER) (test code = 760) BLOOD GAS, [id number] 04:06:00 Test Item Value Reference Range Interpretation [...] 40.0 % RAD, CHEST, 1 VIEW, NON [id number] 03:32:00Reason for exam:->ptxShould this be performed at [...] MDReport Verified Date/Time: 01/22/2018 03:32:38 Reading Location: [address] Body Reading Room POCT-GLUCOSE [id number] 00:43:00 Test Item Value Reference Range Interpretation Comments POC-GLUCOSE METER 102 mg/dL 70-110 TESTED AT [facility] 6720 ([facility]) (test code = FOSTER Paul MIRELLA [place] 1538) [address] [id number] 17:31:00 Test Item Value Reference Range Interpretation Comments PARTIAL THROMBOPLASTIN TIME 65.0 seconds 22.5-36.0 H (BEAKER) (test code = 760) POCT-GLUCOSE [id number] 17:24:00 Test Item Value Reference Range Interpretation Comments POC-GLUCOSE METER 171 mg/dL 70-110 H TESTED AT [facility] 6720 ([facility]) (test code = FOSTER Paul [place] 1538) [address] POCT-GLUCOSE [id number] 13:01:00 Test Item Value Reference Range Interpretation Comments POC-GLUCOSE METER 144 mg/dL 70-110 H TESTED AT [facility] 6720 ([facility]) (test code = FOSTER Paul [place] 1538) [address] [id number] 11:12:00 Test Item Value Reference Range Interpretation Comments PARTIAL THROMBOPLASTIN TIME 67.9 seconds 22.5-36.0 H ([facility]) (test code = 760) RAD, CHEST, 1 VIEW, NON [id number] 08:01:00Reason for exam:->ptxShould this be performed at [...] pleural effusion is present. Signed: Dung Granda Verified Date/Time: 01/21/2018 08:01:07 Reading Location: [facility] Radiology Reading Room POCT-GLUCOSE [id number] 06:50:00 Test Item Value Reference Range Interpretation Comments POC-GLUCOSE METER 149 mg/dL 70-110 H TESTED AT [facility] 6720 ([facility]) (test code = FOSTER Paul [facility] 1538) [address] CBC (HEMOGRAM ONLY)2018-01-21 04:20:00 Test Item Value Reference Range Interpretation Comments WHITE BLOOD CELL COUNT ([facility]) 16.6 K/ L 3.5-10.5 H (test code = 775) RED BLOOD CELL COUNT ([facility]) 2.13 M/ L 4.63-6.08 L (test code [...] /100 WBC 0-0 (test code = 413) [id number] 04:03:00 Test Item Value Reference Range Interpretation Comments PARTIAL THROMBOPLASTIN TIME 51.2 seconds 22.5-36.0 H (BEAKER) (test code = 760) BASIC METABOLIC [id number] 04:01:00 Test Item Value Reference Range Interpretation [...] APPLICABLE FOR DIALYSIS PATIEN TS. Specimen moderately [id number] 03:59:00 Test Item Value Reference Range Interpretation Comments MAGNESIUM (BEAKER) (test code = 2.0 mg/dL 1.6-2.6 627) HEPATIC FUNCTION [id number] 03:59:00 Test Item Value Reference Range Interpretation [...] U/L 6-55 347) Specimen moderately ictericVANCOMYCIN LEVEL, [id number] 03:57:00 Test Item Value Reference Range Interpretation Comments VANCOMYCIN RANDOM (BEAKER) (test 18.3 ug/mL code = 523) Reference Range: No NormalsOXYGEN SATURATION, [id number] 03:32:00 Test Item Value Reference Range Interpretation Comments O2 SATURATION (MEASURED) (BEAKER) 86.3 % (test code = 1455) BLOOD GAS, [id number] 03:30:00 Test Item Value Reference Range Interpretation [...] H (test code = 387) PATIENT TEMPERATURE ([facility]) (test 37.5 C code = 1818) FIO2 ([facility]) (test code = 1819) 40.0 % POCT-GLUCOSE [id number] 23:43:00 Test Item Value Reference Range Interpretation Comments POC-GLUCOSE METER 143 mg/dL 70-110 H TESTED AT [place] [address] ([facility]) (test code = FOSTER Paul [facility] 1538) [address] BLOOD [id number] 18:00:00 Test Item Value Reference Range Interpretation Comments CULTURE ([facility] (test No growth in 5 days code = 1095) BLOOD [id number] 18:00:00 Test Item Value Reference Range Interpretation Comments CULTURE (BEAKER) (test No growth in 5 days code = 1095) POCT-GLUCOSE [id number] 16:32:00 Test Item Value Reference Range Interpretation Comments POC-GLUCOSE METER 185 mg/dL 70-110 H TESTED AT [place] [address] ([facility]) (test code = MARIA GNC Humberto [facility] 1538) [address] MISCELLANEOUS LAB [id number] 15:04:00 Test Item Value Reference Range Interpretation Comments SCAN RESULT (test code = 1396272) Result comments: NOT DETECTED Panel is negative for [employer] BCID-detectable organisms. Please refer to traditional culture and sensitivity results as they become available. Other organisms and resistance markers not contained in this PCR panel cannot be excluded and follow-up of traditional culture results is required. This sample was tested at the [facility] Clinical Microbiology Laboratory using the [employer] Blood Culture ID Panel. This test is FDA cleared for in vitro diagnostic use and hasbeen verified and approved by the [facility] Clinical Microbiology laboratory for clinical use. ReferenceRange: Not Detected POCT-GLUCOSE [id number] 12:25:00 Test Item Value Reference Range Interpretation Comments POC-GLUCOSE METER 116 mg/dL 70-110 H TESTED AT [facility] 67 ([facility]) (test code = FOSTER Paul [facility] 1538) [address] RAD, CHEST, 1 VIEW, NON [id number] 06:38:00Reason for exam:->pl effusionShould this be performed [...] MDReport Verified Date/Time: 01/20/2018 06:38:33 Reading Location: [facility] C013Y CT Body Reading Room POCT-GLUCOSE [id number] 05:54:00 Test Item Value Reference Range Interpretation Comments POC-GLUCOSE METER 231 mg/dL 70-110 H TESTED AT [facility] 6720 (BEAKER) (test code = FOSTER Paul [place] 1538) [address] VANCOMYCIN LEVEL, [id number] 04:23:00 Test Item Value Reference Range Interpretation Comments VANCOMYCIN RANDOM (BEAKER) (test 25.8 ug/mL code = 523) Reference Range: No [id number] 04:17:00 Test Item Value Reference Range Interpretation Comments MAGNESIUM (BEAKER) (test code = 2.0 mg/dL 1.6-2.6 627) HEPATIC FUNCTION [id number] 04:17:00 Test Item Value Reference Range Interpretation [...] 6-55 H 347) Specimen moderately ictericBASIC METABOLIC [id number] 04:17:00 Test Item Value Reference Range Interpretation [...] APPLICABLE FOR DIALYSIS PATIEN TS. Specimen moderately [id number] 04:05:00 Test Item Value Reference Range Interpretation Comments PARTIAL THROMBOPLASTIN TIME 69.7 seconds 22.5-36.0 H (BEAKER) (test code = 760) CBC W/PLT COUNT & AUTO [id number] 03:49:00 Test Item Value Reference Range Interpretation [...] H PERCENT (BEAKER) (test code = 2809) OXYGEN SATURATION, [id number] 03:48:00 Test Item Value Reference Range Interpretation Comments O2 SATURATION (MEASURED) (BEAKER) 84.1 % (test code = 1455) POCT-GLUCOSE [id number] 23:14:00 Test Item Value Reference Range Interpretation Comments POC-GLUCOSE METER 248 mg/dL 70-110 H TESTED AT [place] [address] ([facility]) (test code = FOSTER Paul [facility] 1538) [address] POCT-GLUCOSE [id number] 18:56:00 Test Item Value Reference Range Interpretation Comments POC-GLUCOSE METER 213 mg/dL 70-110 H TESTED AT [facility] 6720 ([facility]) (test code = FOSTER Paul [facility] 1538) [address] POCT-GLUCOSE [id number] 14:06:00 Test Item Value Reference Range Interpretation Comments POC-GLUCOSE METER 210 mg/dL 70-110 H TESTED AT [facility] 6720 (BEAKER) (test code = FOSTER Paul [facility] 1538) [address] SPUTUM CULTURE + GRAM [id number] 13:45:00 Test Item Value Reference Range Interpretation Comments CULTURE (BEAKER) 4+ Normal respiratory (test code = 1095) pete present GRAM STAIN RESULT 4+ WBCs (BEAKER) (test code = 1123) GRAM STAIN RESULT 0-5 epithelial cells (BEAKER) (test code = 16153) GRAM STAIN RESULT 3+ gram negative rods (BEAKER) (test code = 35566) GRAM STAIN RESULT 2+ gram positive cocci (BEAKER) (test code = in pairs and clusters 359869) [id number] 12:37:00 Test Item Value Reference Range Interpretation Comments PARTIAL THROMBOPLASTIN TIME 74.3 seconds 22.5-36.0 H (BEAKER) (test code = 760) CBC W/PLT COUNT & AUTO [id number] 10:52:00 Test Item Value Reference Range Interpretation [...] H (test code = 413) VANCOMYCIN LEVEL, [id number] 05:41:00 Test Item Value Reference Range Interpretation Comments VANCOMYCIN RANDOM (BEAKER) (test 27.9 ug/mL code = 523) Reference Range: No NormalsBASIC METABOLIC [id number] 05:39:00 Test Item Value Reference Range Interpretation [...] APPLICABLE FOR DIALYSIS PATIEN TS. Specimen moderately [id number] 05:36:00 Test Item Value Reference Range Interpretation Comments MAGNESIUM (BEAKER) (test code = 2.0 mg/dL 1.6-2.6 627) [id number] 05:36:00 Test Item Value Reference Range Interpretation Comments PHOSPHORUS (BEAKER) (test code = 3.9 mg/dL 2.3-4.7 604) HEPATIC FUNCTION [id number] 05:36:00 Test Item Value Reference Range Interpretation [...] 6-55 H 347) Specimen moderately ictericOXYGEN SATURATION, [id number] 05:33:00 Test Item Value Reference Range Interpretation [...] WBC 0-0 H (test code = 413) [id number] 05:24:00 Test Item Value Reference Range Interpretation Comments PARTIAL THROMBOPLASTIN TIME 68.1 seconds 22.5-36.0 H (BEAKER) (test code = 760) RAD, CHEST, 1 VIEW, NON [id number] 04:41:00Reason for exam:->pl effusionShould this be performed at the bedside?->YesFINAL REPORT CLINICAL INDICATION: Support lines. Comparison: 01/18/2018 The ca rdiomediastinal contours are stable. Central pulmonary vascular congestion and bilateral parenchymalopacities are unchanged. There is no pneumothorax. Support lines are stable. Signed: Kellen Parra MDReport Verified Date/Time: 01/19/2018 04:41:27 Reading Location: [address] Reading Room APTT 2018-01-19 00:38:00 Test Item Value Reference Range Interpretation Comments PARTIAL THROMBOPLASTIN TIME 45.5 seconds 22.5-36.0 H (BEAKER) (test code = 760) POCT-GLUCOSE [id number] 00:21:00 Test Item Value Reference Range Interpretation Comments POC-GLUCOSE METER 189 mg/dL 70-110 H TESTED AT [facility] 6720 ([facility]) (test code = FOSTER Paul [facility] 1538) [address] POCT-GLUCOSE [id number] 23:34:00 Test Item Value Reference Range Interpretation Comments POC-GLUCOSE METER 162 mg/dL 70-110 H TESTED AT [facility] 6720 ([facility]) (test code = MARIA GOSMAN Humberto [facility] 1538) [address] POCT-GLUCOSE [id number] 18:09:00 Test Item Value Reference Range Interpretation Comments POC-GLUCOSE METER 172 mg/dL 70-110 H TESTED AT [facility] 6720 ([facility]) (test code = MARIA GNC Humberto [facility] 1538) [address] RAD, ABDOMEN/KUB, 1 VIEW [id number] 17:36:00Reason for exam:->ileusShould this be performed at the bedside?->YesFINAL REPORT Comparison: 01/17/2018 TECHNIQUE: Frontal image of the abdomen FINDINGS: There is a nonspecific bowel gas pattern. Tip of nasogastric projects in the distal stomach. No gross free intraperitoneal air. No acute skeletal abnormality. Signed: Kyle Rome MDReport Verified Date/Time: 01/18/2018 17:36:02 Reading Location: [facility] C013 Transitional Reading Room [id number] 17:10:00 Test Item Value Reference Range Interpretation Comments PARTIAL THROMBOPLASTIN TIME 27.8 seconds 22.5-36.0 (BEAKER) (test code = 760) Prior to initiating heparinPOCT-GLUCOSE [id number] 15:22:00 Test Item Value Reference Range Interpretation Comments POC-GLUCOSE METER 126 mg/dL 70-110 H TESTED AT [facility] 6720 (BEAKER) (test code = [place] 1538) 1965[address] [id number] 13:02:00 Test Item Value Reference Range Interpretation Comments PHOSPHORUS (BEAKER) (test code = 3.8 mg/dL 2.3-4.7 604) BASIC METABOLIC [id number] 13:02:00 Test Item Value Reference Range Interpretation [...] FOR DIALYSIS PATIEN TS. Specimen moderately ictericPOCT-GLUCOSE [id number] 12:11:00 Test Item Value Reference Range Interpretation Comments POC-GLUCOSE METER 113 mg/dL 70-110 H TESTED AT [facility] 6720 (BEAKER) (test code = [place] 1538) [address] CBC W/PLT COUNT & AUTO [id number] 12:03:00 Test Item Value Reference Range Interpretation [...] = 413) RAD, CHEST, 1 VIEW, NON [id number] 09:44:00Reason for exam:->pl effusionShould this be performed [...] MDReport Verified Date/Time: 01/18/2018 09:44:26 Reading Location: [address] Transitional Reading Room SPUTUM CULTURE + GRAM [id number] 08:09:00 Test Item Value Reference Range Interpretation Comments CULTURE (BEAKER) 3+ Normal respiratory (test code = 1095) pete present GRAM STAIN RESULT 4+ WBCs (BEAKER) (test code = 1123) GRAM STAIN RESULT 0-5 epithelial cells (BEAKER) (test code = 98300) GRAM STAIN RESULT No organisms seen (BEAKER) (test code = 87875) POCT-GLUCOSE [id number] 07:52:00 Test Item Value Reference Range Interpretation Comments POC-GLUCOSE METER 146 mg/dL 70-110 H TESTED AT [place] [address] (BEAKER) (test code = FOSTER Paul [facility] 1538) [address] POCT-GLUCOSE [id number] 06:30:00 Test Item Value Reference Range Interpretation Comments POC-GLUCOSE METER 135 mg/dL 70-110 H TESTED AT [place] [address] (BEAKER) (test code = [facility] [place] 1538) [address] POCT-GLUCOSE [id number] 06:30:00 Test Item Value Reference Range Interpretation Comments POC-GLUCOSE METER 130 mg/dL 70-110 H TESTED AT [place] [address] (BEAKER) (test code = [facility] Humberto [facility] 1538) [address] [id number] 03:56:00 Test Item Value Reference Range Interpretation Comments PHOSPHORUS (BEAKER) (test code = 3.1 mg/dL 2.3-4.7 604) [id number] 03:56:00 Test Item Value Reference Range Interpretation Comments MAGNESIUM (BEAKER) (test code = 2.0 mg/dL 1.6-2.6 627) HEPATIC FUNCTION [id number] 03:56:00 Test Item Value Reference Range Interpretation [...] 6-55 H 347) Specimen moderately ictericVANCOMYCIN LEVEL, [id number] 03:53:00 Test Item Value Reference Range Interpretation Comments VANCOMYCIN RANDOM (BEAKER) (test 18.0 ug/mL code = 523) Reference Range: No [id number] 03:48:00 Test Item Value Reference Range Interpretation Comments CALCIUM (BEAKER) (test code = 697) 8.1 mg/dL 8.4-10.2 L CALCIUM, [id number] 03:34:00 Test Item Value Reference Range Interpretation Comments CALCIUM IONIZED (BEAKER) (test 1.06 mmol/L 1.12-1.27 L code = 698) PH, BLOOD (BEAKER) (test code = 7.38 1810) OXYGEN SATURATION, [id number] 03:33:00 Test Item Value Reference Range Interpretation Comments O2 SATURATION (MEASURED) (AKER) 85.8 % (test code = 1455) POCT-GLUCOSE [id number] 03:26:00 Test Item Value Reference Range Interpretation Comments POC-GLUCOSE METER 144 mg/dL 70-110 H TESTED AT [place] [address] ([facility]) (test code = [place] 1538) [address] POCT-GLUCOSE [id number] 03:26:00 Test Item Value Reference Range Interpretation Comments POC-GLUCOSE METER 163 mg/dL 70-110 H TESTED AT [place] [address] ([facility]) (test code = [place] 1538) [address] POCT-GLUCOSE [id number] 01:04:00 Test Item Value Reference Range Interpretation Comments POC-GLUCOSE METER 159 mg/dL 70-110 H TESTED AT [place] [address] ([facility]) (test code = [place] 1538) [address] POCT-GLUCOSE [id number] 00:12:00 Test Item Value Reference Range Interpretation Comments POC-GLUCOSE METER 132 mg/dL 70-110 H TESTED AT [facility] 6720 (BEAKER) (test code = [place] 1533) [address] LACTIC ACID, ARTERIAL, WHOLE [id number] 23:54:00 Test Item Value Reference Range Interpretation Comments LACTATE BLOOD ARTERIAL (2) 0.7 mmol/L 0.5-2.2 (BEAKER) (test code = 2874) Effective 01/04/2016: Units/Reference Range ChangeNew: 0.5-2.2 mmol/L Previous: 5-20 mg/dLSpecimen moderately ictericPOTASSIUM-STAT [id number] 23:30:00 Test Item Value Reference Range Interpretation Comments POTASSIUM (BEAKER) (test code = 4.0 meq/L 3.6-5.5 379) BLOOD GAS, [id number] 23:30:00 Test Item Value Reference Range Interpretation [...] code = 1819) 50.0 % SODIUM NA-STAT [id number] 23:30:00 Test Item Value Reference Range Interpretation Comments SODIUM (BEAKER) (test code = 381) 134 meq/L 135-148 L GLUCOSE-STAT [id number] 23:30:00 Test Item Value Reference Range Interpretation Comments GLUCOSE RANDOM (BEAKER) (test code 138 mg/dL 70-110 H = 652) HGB/HCT (H&H) - STAT [id number] 23:30:00 Test Item Value Reference Range Interpretation Comments HEMOGLOBIN (BEAKER) (test code = 9.0 g/dL 13.0-16.8 L 410) HEMATOCRIT ([facility]) (test code = 26.0 % 40.0-50.0 L 411) CALCIUM, [id number] 23:30:00 Test Item Value Reference Range Interpretation Comments CALCIUM IONIZED ([facility]) (test 1.04 mmol/L 1.12-1.27 L code = 698) PH, BLOOD ([facility]) (test code = 7.48 1810) OXYGEN SATURATION, [id number] 23:28:00 Test Item Value Reference Range Interpretation Comments O2 SATURATION (MEASURED) ([facility]) 82.0 % (test code = 1455) POCT-GLUCOSE [id number] 21:35:00 Test Item Value Reference Range Interpretation Comments POC-GLUCOSE METER 99 mg/dL 70-110 TESTED AT [facility] 67 ([facility]) (test code = [place] Paul [facility] [address] 1538) POCT-GLUCOSE [id number] 21:35:00 Test Item Value Reference Range Interpretation Comments POC-GLUCOSE METER 111 mg/dL 70-110 H TESTED AT [place] [address] ([facility]) (test code = [place] Paul [facility] 1538) [address] RAD, CHEST, 1 VIEW, NON [id number] 17:08:00Reason for exam:->LIJ placment CVCShould this be [...] [place] Verified Date/Time: 01/17/2018 17:08:24 Reading Location: [facility] Radiology Reading Room GLUCOSE-STAT [id number] 16:33:00 Test Item Value Reference Range Interpretation Comments GLUCOSE RANDOM (BEAKER) (test code 147 mg/dL 70-110 H = 652) POTASSIUM-STAT [id number] 16:32:00 Test Item Value Reference Range Interpretation Comments POTASSIUM (BEAKER) (test code = 4.7 meq/L 3.6-5.5 379) [id number] 15:03:00 Test Item Value Reference Range Interpretation Comments PROCALCITONIN (BEAKER) (test code 5.33 ng/mL <0.05 H = 3036) SEPSIS RISK (ng/mL)Low: 0.05-0.50Intermediate: 0.51-2.00High: >=2.01CT BRAIN WITHOUT IV CONTRAST - [id number] 13:50:00Reason for exam:->altered mental statusFINAL REPORT CT [...] MDReport Verified Date/Time: 01/17/2018 13:50:42 Reading Location: [facility] Radiology Reading Room CALCIUM, [id number] 12:36:00 Test Item Value Reference Range Interpretation Comments CALCIUM IONIZED (BEAKER) (test 1.09 mmol/L 1.12-1.27 L code = 698) PH, BLOOD (BEAKER) (test code = 7.36 1810) GLUCOSE-STAT [id number] 12:36:00 Test Item Value Reference Range Interpretation Comments GLUCOSE RANDOM (BEAKER) (test code 147 mg/dL 70-110 H = 652) POTASSIUM-STAT [id number] 12:36:00 Test Item Value Reference Range Interpretation Comments POTASSIUM (BEAKER) (test code = 4.7 meq/L 3.6-5.5 379) RAD, ABDOMEN/KUB, 1 VIEW [id number] 08:42:00Reason for exam:->ileusShould this be performed at [...] MDReport Verified Date/Time: 01/17/2018 08:42:09 Reading Location: [facility] Radiology Reading Room CBC W/PLT COUNT & AUTO [id number] 08:18:00 Test Item Value Reference Range Interpretation [...] MEAN CORPUSCULAR HEMOGLOBIN CONC 32.8 GM/DL 32.3-36.5 ([facility]) (test code = 752) RED CELL DISTRIBUTION WIDTH 18.8 % 11.6-14.4 H ([facility]) (test code = 412) PLATELET COUNT ([facility]) (test code 63 K/CU MM 150-450 L = 756) MEAN PLATELET VOLUME ([facility]) 11.1 fL 9.4-12.4 (test code = 754) NUCLEATED RED BLOOD CELLS ([facility]) 6 /100 WBC 0-0 H (test code = 413) HEPARIN ASSAY - [id number] 08:07:00 Test Item Value Reference Range Interpretation Comments UNFRACTIONATED HEPARIN-ANTI 10A < u/ml 0.30-0.70 L ([facility]) (test code = 1606) Recommendations for Monitoring Unfractionated Heparin Therapeutic Range: 0.3- 0.7 u/mL with continuous IV infusionPOCT-GLUCOSE [id number] 06:09:00 Test Item Value Reference Range Interpretation Comments POC-GLUCOSE METER 143 mg/dL 70-110 H TESTED AT [facility] 6720 ([facility]) (test code = [place] 1538) [address] RAD, CHEST, 1 VIEW, NON [id number] 04:43:00Reason for exam:->acute respiratory insufficiencyShould this be [...] MDReport Verified Date/Time: 01/17/2018 04:43:34 Reading Location: [address] Body Reading Room OXYGEN SATURATION, [id number] 04:13:00 Test Item Value Reference Range Interpretation Comments O2 SATURATION (MEASURED) (BEAKER) 85.7 % (test code = 1455) [id number] 04:06:00 Test Item Value Reference Range Interpretation Comments PHOSPHORUS (BEAKER) (test code = 3.1 mg/dL 2.3-4.7 604) [id number] 04:06:00 Test Item Value Reference Range Interpretation Comments MAGNESIUM (BEAKER) (test code = 2.1 mg/dL 1.6-2.6 627) COMPREHENSIVE METABOLIC [id number] 04:06:00 Test Item Value Reference Range Interpretation [...] DIALYSIS PATIEN TS. Specimen moderately ictericHEPATIC FUNCTION [id number] 04:06:00 Test Item Value Reference Range Interpretation [...] 347) Specimen moderately ictericLACTIC ACID, ARTERIAL, WHOLE [id number] 03:59:00 Test Item Value Reference Range Interpretation Comments LACTATE BLOOD 0.5 mmol/L 0.5-2.2 Specimen sligh tly ARTERIAL (2) (BEAKER) hemoly zed (test code = 2874) Effective 01/04/2016: Units/Reference Range ChangeNew: 0.5-2.2 mmol/L Previous: 5-20 mg/dLSpecimen moderately ictericBLOOD GAS, [id number] 03:58:00 Test Item Value Reference Range Interpretation [...] (test code = 1819) 40.0 % CALCIUM, [id number] 03:58:00 Test Item Value Reference Range Interpretation Comments CALCIUM IONIZED (AKER) (test 1.14 mmol/L 1.12-1.27 code = 698) PH, BLOOD ([facility]) (test code = 7.41 1809) POCT-GLUCOSE [id number] 02:41:00 Test Item Value Reference Range Interpretation Comments POC-GLUCOSE METER 144 mg/dL 70-110 H TESTED AT [place] [address] ([facility]) (test code = [facility] 1538) [address] POCT-GLUCOSE [id number] 00:30:00 Test Item Value Reference Range Interpretation Comments POC-GLUCOSE METER 171 mg/dL 70-110 H TESTED AT [place] [address] ([facility]) (test code = [facility] 1538) [address] POTASSIUM-STAT [id number] 00:08:00 Test Item Value Reference Range Interpretation Comments POTASSIUM ([facility]) (test code = 4.5 meq/L 3.6-5.5 379) POCT-GLUCOSE [id number] 23:30:00 Test Item Value Reference Range Interpretation Comments POC-GLUCOSE METER 159 mg/dL 70-110 H TESTED AT [place] [address] ([facility]) (test code = [facility] 1538) [address] POCT-GLUCOSE [id number] 21:08:00 Test Item Value Reference Range Interpretation Comments POC-GLUCOSE METER 194 mg/dL 70-110 H TESTED AT [place] [address] ([facility]) (test code = [facility] 1538) [address] POCT-GLUCOSE [id number] 21:08:00 Test Item Value Reference Range Interpretation Comments POC-GLUCOSE METER 230 mg/dL 70-110 H TESTED AT [place] [address] ([facility]) (test code = [facility] 1538) [address] CALCIUM, [id number] 19:23:00 Test Item Value Reference Range Interpretation Comments CALCIUM IONIZED (BEAKER) (test 1.14 mmol/L 1.12-1.27 code = 698) PH, BLOOD ([facility]) (test code = 7.36 1809) POTASSIUM-STAT [id number] 19:23:00 Test Item Value Reference Range Interpretation Comments POTASSIUM (BEAKER) (test code = 5.1 meq/L 3.6-5.5 379) [id number] 17:27:00 Test Item Value Reference Range Interpretation Comments PHOSPHORUS (BEAKER) (test code = 2.2 mg/dL 2.3-4.7 L 604) [id number] 17:27:00 Test Item Value Reference Range Interpretation Comments MAGNESIUM (BEAKER) (test code = 2.1 mg/dL 1.6-2.6 627) PH, [id number] 17:03:00 Test Item Value Reference Range Interpretation Comments PH ARTERIAL (BEAKER) (test code = 383) 7.39 7.35-7.45 POCT-GLUCOSE [id number] 16:43:00 Test Item Value Reference Range Interpretation Comments POC-GLUCOSE METER 95 mg/dL 70-110 TESTED AT [facility] 6720 (BEAKER) (test code = [facility] [address] 1538) POCT-GLUCOSE [id number] 14:41:00 Test Item Value Reference Range Interpretation Comments POC-GLUCOSE METER 134 mg/dL 70-110 H TESTED AT [facility] 6720 (BEAKER) (test code = [facility] 1538) [address] RAD, ABDOMEN/KUB, 1 VIEW [id number] 13:16:00Reason for exam:- >constipationShould this be performed [...] MDRep[place] Verified Date/Time: 01/16/2018 13:16:27 Reading Location: [facility] Reading Room Electronically signed by: KAY WALTER on01/16/2018 01:16 PMCALCIUM, [id number] 12:38:00 Test Item Value Reference Range Interpretation Comments CALCIUM IONIZED ([facility]) (test 1.14 mmol/L 1.12-1.27 code = 698) PH, BLOOD ([facility]) (test code = 7.40 1810) POCT-GLUCOSE [id number] 12:29:00 Test Item Value Reference Range Interpretation Comments POC-GLUCOSE METER 127 mg/dL 70-110 H TESTED AT [place] [address] ([facility]) (test code = [facility] 1538) [address] POCT-GLUCOSE [id number] 10:34:00 Test Item Value Reference Range Interpretation Comments POC-GLUCOSE METER 130 mg/dL 70-110 H TESTED AT [place] [address] ([facility]) (test code = [facility] 1538) [address] POCT-GLUCOSE [id number] 09:10:00 Test Item Value Reference Range Interpretation Comments POC-GLUCOSE METER 151 mg/dL 70-110 H TESTED AT [place] [address] ([facility]) (test code = [facility] 1538) [address] HEPARIN ASSAY - [id number] 09:00:00 Test Item Value Reference Range Interpretation Comments UNFRACTIONATED HEPARIN-ANTI 10A < u/ml 0.30-0.70 L ([facility]) (test code = 1606) Recommendations for Monitoring [...] = 8.4 GM/DL 13.7-17.5 L 410) HEMATOCRIT ([facility]) (test code = 25.2 % 40.1-51.0 L 411) MEAN CORPUSCULAR VOLUME ([facility]) 95.5 fL 79.0-92.2 H (test code = 753) MEAN CORPUSCULAR HEMOGLOBIN 31.8 pg 25.7-32.2 ([facility]) (test code = 751) MEAN CORPUSCULAR HEMOGLOBIN [...] H (test code = 413) OXYGEN SATURATION, [id number] 08:30:00 Test Item Value Reference Range Interpretation Comments O2 SATURATION (MEASURED) (BEAKER) 87.1 % (test code = 1455) RAD, CHEST, 1 VIEW, NON [id number] 08:11:00Reason for exam:->acute respiratory insufficiencyShould this be performed at the bedside?->YesFINAL REPORT CLINICAL HISTORY: acute respiratory insufficiency TECHNIQUE: 1 view of the chest. COMPARISON: 01/15/2018 IMPRESSION: The Milnesand-Moni catheter has been removed. The supporting lines and tubes are otherwise unchanged. There is no pneumothorax. Mild bilateral perihilar lung opacities have decreased. The cardiomediastinal silhouette is magnified by technique with sternotomy wires. Signed: Lorna Sladeort Verified Date/Time: 01/16/2018 08:11:02 Reading Location: [facility] Radiology Reading Room POCT- GLUCOSE [id number] 06:43:00 Test Item Value Reference Range Interpretation Comments POC-GLUCOSE METER 107 mg/dL 70-110 TESTED AT [facility] 6720 ([facility]) (test code = [place] 1538) [address] U/S, ABDOMINAL, [id number] 05:25:00Abdomen limited area? Add comment if clarification [...] MDReport Verified Date/Time: 01/16/2018 05:25:06 Reading Location: [place] [address] CT Body Reading Room IC ACID, ARTERIAL, WHOLE [id number] 04:06:00 Test Item Value Reference Range Interpretation Comments LACTATE BLOOD ARTERIAL (2) 0.6 mmol/L 0.5-2.2 (BEAKER) (test code = 2874) Effective 01/04/2016: Units/Reference Range ChangeNew: 0.5-2.2 mmol/L Previous: 5-20 mg/dLSpecimen moderately [id number] 04:00:00 Test Item Value Reference Range Interpretation Comments PHOSPHORUS (BEAKER) (test code = 2.2 mg/dL 2.3-4.7 L 604) [id number] 04:00:00 Test Item Value Reference Range Interpretation Comments MAGNESIUM (BEAKER) (test code = 2.0 mg/dL 1.6-2.6 627) [id number] 04:00:00 Test Item Value Reference Range Interpretation Comments CALCIUM (BEAKER) (test code = 697) 8.5 mg/dL 8.4-10.2 COMPREHENSIVE METABOLIC [id number] 04:00:00 Test Item Value Reference Range Interpretation [...] DIALYSIS PATIEN TS. Specimen moderately ictericHEPATIC FUNCTION [id number] 04:00:00 Test Item Value Reference Range Interpretation [...] 6-55 H 347) Specimen moderately ictericBLOOD GAS, [id number] 03:51:00 Test Item Value Reference Range Interpretation [...] (test code = 1819) 60.0 % PROTHROMBIN [id number] 03:51:00 Test Item Value Reference Range Interpretation Comments PROTIME (BEAKER) (test code = 15.2 seconds 11.7-14.7 H 759) INR (BEAKER) (test code = 370) 1.2 <=5.9 RECOMMENDED COUMADIN/WARFARIN INR THERAPY RANGESSTANDARD DOSE: 2.0 - 3.0 Includes: PROPHYLAXIS forvenous thrombosis, systemic embolization; TREATMENT for venous thrombosis and/or pulmonary embolus.HIGH RISK: Target INR is 2.5-3.5 for patients with mechanical heart valves.CALCIUM, [id number] 03:51:00 Test Item Value Reference Range Interpretation Comments CALCIUM IONIZED (BEAKER) (test 1.17 mmol/L 1.12-1.27 code = 698) PH, BLOOD (BEAKER) (test code = 7.42 1810) POCT-GLUCOSE [id number] 02:08:00 Test Item Value Reference Range Interpretation Comments POC-GLUCOSE METER 110 mg/dL 70-110 TESTED AT [place] [address] (BEAKER) (test code = FOSTER Humberto [facility] 1538) [address] POCT-GLUCOSE [id number] 01:14:00 Test Item Value Reference Range Interpretation Comments POC-GLUCOSE METER 107 mg/dL 70-110 TESTED AT [place] [address] ([facility]) ([facility] 1538) [address] POCT-GLUCOSE [id number] 00:29:00 Test Item Value Reference Range Interpretation Comments POC-GLUCOSE METER 129 mg/dL 70-110 H TESTED AT [place] [address] ([facility]) (test code = [facility] Humberto [facility] 1538) [address] POCT-GLUCOSE [id number] 23:07:00 Test Item Value Reference Range Interpretation Comments POC-GLUCOSE METER 152 mg/dL 70-110 H TESTED AT [place] [address] ([facility]) (test code = [facility] Humberto [facility] 1538) [address] POCT-GLUCOSE [id number] 22:09:00 Test Item Value Reference Range Interpretation Comments POC-GLUCOSE METER 171 mg/dL 70-110 H TESTED AT [place] [address] ([facility]) (test code = [facility] 1538) [address] POCT-GLUCOSE [id number] 21:13:00 Test Item Value Reference Range Interpretation Comments POC-GLUCOSE METER 171 mg/dL 70-110 H TESTED AT [place] [address] ([facility]) (test code = [facility] 1538) [address] CALCIUM, [id number] 20:50:00 Test Item Value Reference Range Interpretation Comments CALCIUM IONIZED ([facility]) (test 1.15 mmol/L 1.12-1.27 code = 698) PH, BLOOD ([facility]) (test code = 7.34 1810) POCT-GLUCOSE [id number] 20:21:00 Test Item Value Reference Range Interpretation Comments POC-GLUCOSE METER 206 mg/dL 70-110 H TESTED AT [place] [address] ([facility]) (test code = [facility] 1538) [address] POCT-GLUCOSE [id number] 19:16:00 Test Item Value Reference Range Interpretation Comments POC-GLUCOSE METER 197 mg/dL 70-110 H TESTED AT [place] [address] ([facility]) (test code = [facility] 1538) [address] [id number] 17:15:00 Test Item Value Reference Range Interpretation Comments PHOSPHORUS (BEAKER) (test code = 4.1 mg/dL 2.3-4.7 604) [id number] 17:15:00 Test Item Value Reference Range Interpretation Comments MAGNESIUM (BEAKER) (test code = 1.9 mg/dL 1.6-2.6 627) EEG AWAKE AND [id number] 14:56:00For STAT EEG- after 5 PM weekdays, weekends and holidays, page the on-call EEG TechReason for exam:->AMSShould this be performed at the bedside?->YesDate(s) of EE01/15/2018DATE OF REPORT: 01/15/2018ACC: [id number] Number: [id number] Location: Inpatient ICUStart time: 13:18Stop time: 13:40ICD-10: R41.82CPT Code: 10156 HISTORY: 62 y/o man with hxof AFib, [...] does not exclude the possibility of epilepsy. Richy Liangphysiology Fellow Mikhail Kwon MD, MSClinic al Neurophysiology/Epilepsy Attending HEPARIN [id number] 13:21:00 Test Item Value Reference Range Interpretation Comments HEPARIN ANTIBODY ([facility]) (test code Negative Negative = 646) HEPARIN ANTIBODY OD ([facility]) (test 0.076 <0.400 code = 2659) 4T TOTAL SCORE ([facility]) (test code = 5 2661) Probability of HIT based on scoring system: 6-8 = High probability; 4-5 = intermediate probability;0-3 = low probabilityPOCT-GLUCOSE [id number] 12:26:00 Test Item Value Reference Range Interpretation Comments POC-GLUCOSE METER 128 mg/dL 70-110 H TESTED AT [facility] 6720 ([facility]) (test code = [place] 1538) [address] FIBRIN SOLUBLE [id number] 11:02:00 Test Item Value Reference Range Interpretation Comments FIBRIN SOLUBLE MONOMER (AKER) Negative (test code = 1416) HEPARIN ASSAY - [id number] 10:20:00 Test Item Value Reference Range Interpretation Comments UNFRACTIONATED HEPARIN-ANTI 10A < u/ml 0.30-0.70 L ([facility] [facility] (test code = 1606) Recommendations for Monitoring Unfractionated Heparin Therapeutic Range: 0.3- 0.7 u/mL with continuous IV ulwtboajY-[id number] 10:14:00 Test Item Value Reference Range Interpretation Comments D-DIMER QUANTITATIVE ([facility]) 3.76 MG/L FEU <0.50 H (test code [...] of thrombosis is within 95-100% range. GLUCOSE-STAT [id number] 10:03:00 Test Item Value Reference Range Interpretation Comments GLUCOSE RANDOM (AKER) (test code 151 mg/dL 70-110 H = 652) CALCIUM, [id number] 10:02:00 Test Item Value Reference Range Interpretation Comments CALCIUM IONIZED (BEAKER) (test 1.13 mmol/L 1.12-1.27 code = 698) PH, BLOOD (BEAKER) (test code = 7.36 1810) POTASSIUM-STAT [id number] 10:01:00 Test Item Value Reference Range Interpretation Comments POTASSIUM (BEAKER) (test code = 4.3 meq/L 3.6-5.5 379) CBC W/PLT COUNT & AUTO [id number] 07:43:00 Test Item Value Reference Range Interpretation [...] = 2801) RAD, CHEST, 1 VIEW, NON [id number] 04:00:00Reason for exam:->acute respiratory insufficiencyShould this be performed at the bedside?->Yes Addendum BeginsREPORT STATUS:A Correction: Comparison is made to previous dated 01/14/2018. Signed: Kellen Parraort Verified Date/Time: 01/15/2018 04:00:43 Reading Location: [address] Reading RoomAddendum EndsFINAL REPORT CLINICAL ADEEL CATION: Respiratory insufficiency Comparison: 01/15/2018 The cardiomediastinal contours are stable. Central pulmonary vascular congestion and bilateral parenchymal opacities are unchanged. There is no pneumothorax. Support lines are stable. Signed: Kellen Parraort Verified Date/Time: 01/15/201803:46:27 Reading Location: [address] Reading Room [id number] 03:36:00 Test Item Value Reference Range Interpretation Comments PHOSPHORUS (BEAKER) (test code = 2.7 mg/dL 2.3-4.7 604) [id number] 03:36:00 Test Item Value Reference Range Interpretation Comments MAGNESIUM (BEAKER) (test code = 2.0 mg/dL 1.6-2.6 627) COMPREHENSIVE METABOLIC [id number] 03:36:00 Test Item Value Reference Range Interpretation [...] DIALYSIS PATIEN TS. Specimen slightly ictericHEPATIC FUNCTION [id number] 03:36:00 Test Item Value Reference Range Interpretation [...] U/L 6-55 H 347) Specimen slightly ictericPROTHROMBIN [id number] 03:35:00 Test Item Value Reference Range Interpretation [...] mmol/L Previous: 5-20 mg/dLSpecimen slightly ictericBLOOD GAS, [id number] 03:29:00 Test Item Value Reference Range Interpretation [...] code = 1819) 40.0 % OXYGEN SATURATION, [id number] 03:26:00 Test Item Value Reference Range Interpretation Comments O2 SATURATION (MEASURED) ([facility] [place]) 72.5 % (test code = 1455) CALCIUM, [id number] 00:17:00 Test Item Value Reference Range Interpretation Comments CALCIUM IONIZED ([facility]) (test 1.19 mmol/L 1.12-1.27 code = 698) PH, BLOOD ([facility]) (test code = 7.36 1810) POCT-GLUCOSE [id number] 00:15:00 Test Item Value Reference Range Interpretation Comments POC-GLUCOSE METER 144 mg/dL 70-110 H TESTED AT [facility] ([facility]) (test code = [facility] 1538) [id number] POCT-GLUCOSE [id number] 22:43:00 Test Item Value Reference Range Interpretation Comments POC-GLUCOSE METER 98 mg/dL 70-110 TESTED AT [place] [address] ([facility]) (test code = [facility] [address] 1538) POCT-GLUCOSE [id number] 22:43:00 Test Item Value Reference Range Interpretation Comments POC-GLUCOSE METER 80 mg/dL 70-110 TESTED AT [facility] ([facility]) (test code = [facility] [address] 1538) VANCOMYCIN LEVEL, [id number] 20:20:00 Test Item Value Reference Range Interpretation Comments VANCOMYCIN TROUGH ([facility]) (test 20.1 ug/mL 10.0-20.0 H code = 522) Before vanc [id number] 16:52:00 Test Item Value Reference Range Interpretation Comments PHOSPHORUS (BEAKER) (test code = 1.7 mg/dL 2.3-4.7 L 604) [id number] 16:52:00 Test Item Value Reference Range Interpretation Comments MAGNESIUM (BEAKER) (test code = 2.3 mg/dL 1.6-2.6 627) [id number] 16:39:00 Test Item Value Reference Range Interpretation Comments AMMONIA (BEAKER) (test code = 348) 32 mol/L 18-72 PH, [id number] 16:01:00 Test Item Value Reference Range Interpretation Comments PH ARTERIAL ([facility]) (test code = 383) 7.42 7.35-7.45 GLUCOSE-STAT [id number] 16:01:00 Test Item Value Reference Range Interpretation Comments GLUCOSE RANDOM (BEAKER) (test code = 95 mg/dL 70-110 652) POTASSIUM-STAT [id number] 16:01:00 Test Item Value Reference Range Interpretation Comments POTASSIUM (BEAKER) (test code = 4.3 meq/L 3.6-5.5 379) CALCIUM, [id number] 16:01:00 Test Item Value Reference Range Interpretation Comments CALCIUM IONIZED (BEAKER) (test 1.28 mmol/L 1.12-1.27 H code = 698) PH, BLOOD (BEAKER) (test code = 7.42 1810) CALCIUM, [id number] 12:19:00 Test Item Value Reference Range Interpretation Comments CALCIUM IONIZED (BEAKER) (test 1.36 mmol/L 1.12-1.27 H code = 698) PH, BLOOD (BEAKER) (test code = 7.41 1810) GLUCOSE-STAT [id number] 12:17:00 Test Item Value Reference Range Interpretation Comments GLUCOSE RANDOM (BEAKER) (test code = 94 mg/dL 70-110 652) POTASSIUM-STAT [id number] 12:17:00 Test Item Value Reference Range Interpretation Comments POTASSIUM (BEAKER) (test code = 4.3 meq/L 3.6-5.5 379) [id number] 11:34:00 Test Item Value Reference Range Interpretation Comments MAGNESIUM (BEAKER) (test code = 2.1 mg/dL 1.6-2.6 627) BASIC METABOLIC [id number] 11:34:00 Test Item Value Reference Range Interpretation [...] DIALYSIS PATIEN TS. Specimen slightly ictericHEPATIC FUNCTION [id number] 11:34:00 Test Item Value Reference Range Interpretation [...] 6-55 H 347) Specimen slightly ictericBLOOD GAS, [id number] 09:44:00 Test Item Value Reference Range Interpretation [...] (test code = 1819) 100.0 % GLUCOSE-STAT [id number] 09:42:00 Test Item Value Reference Range Interpretation Comments GLUCOSE RANDOM (BEAKER) (test code = 95 mg/dL 70-110 652) POTASSIUM-STAT [id number] 09:42:00 Test Item Value Reference Range Interpretation Comments POTASSIUM (BEAKER) (test code = 4.5 meq/L 3.6-5.5 379) CALCIUM, [id number] 09:38:00 Test Item Value Reference Range Interpretation Comments CALCIUM IONIZED (BEAKER) (test 1.26 mmol/L 1.12-1.27 code = 698) PH, BLOOD (BEAKER) (test code = 7.41 1810) HEPARIN ASSAY - [id number] 08:44:00 Test Item Value Reference Range Interpretation Comments UNFRACTIONATED HEPARIN-ANTI 10A < u/ml 0.30-0.70 L (BEAKER) (test code = 1606) Recommendations for Monitoring Unfractionated Heparin Therapeutic Range: 0.3- 0.7 u/mL with continuous IV infusionGLUCOSE-STAT [id number] 06:41:00 Test Item Value Reference Range Interpretation [...] (test 0.0 % 0.0-5.0 code = 1414) [id number] 05:05:00 Test Item Value Reference Range Interpretation Comments PHOSPHORUS (BEAKER) (test code = 2.5 mg/dL 2.3-4.7 604) [id number] 05:05:00 Test Item Value Reference Range Interpretation Comments MAGNESIUM (BEAKER) (test code = 2.1 mg/dL 1.6-2.6 627) HEPATIC FUNCTION [id number] 05:05:00 Test Item Value Reference Range Interpretation [...] 1266 U/L 6-55 H 347) Specimen slightly [id number] 05:05:00 Test Item Value Reference Range Interpretation Comments CALCIUM (BEAKER) (test code = 697) 9.0 mg/dL 8.4-10.2 LACTATE DEHYDROGENASE ([facility])2018-01-14 05:05:00 Test Item Value Reference Range Interpretation Comments LACTATE DEHYDROGENASE (BEAKER) (test 667 U/L 125-220 H code = 635) PROTHROMBIN [id number] 05:05:00 Test Item Value Reference Range Interpretation Comments PROTIME (BEAKER) (test code = 15.2 seconds 11.7-14.7 H 759) INR (BEAKER) (test code = 370) 1.2 <=5.9 RECOMMENDED COUMADIN/WARFARIN INR THERAPY RANGESSTANDARD DOSE: 2.0 - 3.0 Includes: PROPHYLAXIS forvenous thrombosis, systemic embolization; TREATMENT for venous thrombosis and/or pulmonary embolus.HIGH RISK: Target INR is 2.5-3.5 for patients with mechanical heart valves.[id number] 05:05:00 Test Item Value Reference Range Interpretation Comments FIBRINOGEN LEVEL (BEAKER) (test 280 mg/dl 225-434 code = 658) RAD, CHEST, 1 VIEW, NON [id number] 04:57:00Reason for exam:- >impella/ECMO/intubationShould this be performed at the bedside?->YesFINAL REPORT CLINICAL INDICATION: Support lines. Comparison: 01/13/2018 The cardiomediastinal contours are stable. Cardiac opacities may reflect atelectasis but pneumonitis should be excluded clinically. There is no pneumothorax. Support lines are stable. Signed: Kellen Parra MDReport Verified Date/Time: 01/14/2018 04:57:02 Reading Location: [address] Reading Room LACTIC ACID, ARTERIAL, WHOLE [id number] 04:55:00 Test Item Value Reference Range Interpretation [...] H (BEAKER) (test code = 413) CALCIUM, [id number] 04:39:00 Test Item Value Reference Range Interpretation Comments CALCIUM IONIZED (BEAKER) (test 1.20 mmol/L 1.12-1.27 code = 698) PH, BLOOD (BEAKER) (test code = 7.37 1810) OXYGEN SATURATION, [id number] 04:38:00 Test Item Value Reference Range Interpretation Comments O2 SATURATION (MEASURED) (BEAKER) 75.3 % (test code = 1455) BLOOD GAS, [id number] 04:37:00 Test Item Value Reference Range Interpretation [...] (test code = 1819) 40.0 % GLUCOSE-STAT [id number] 04:37:00 Test Item Value Reference Range Interpretation Comments GLUCOSE RANDOM (BEAKER) (test code 154 mg/dL 70-110 H = 652) GLUCOSE-STAT [id number] 02:52:00 Test Item Value Reference Range Interpretation Comments GLUCOSE RANDOM (BEAKER) (test code 179 mg/dL 70-110 H = 652) GLUCOSE-STAT [id number] 01:26:00 Test Item Value Reference Range Interpretation Comments GLUCOSE RANDOM (BEAKER) (test code 195 mg/dL 70-110 H = 652) [id number] 00:08:00 Test Item Value Reference Range Interpretation Comments POTASSIUM (BEAKER) (test code = 4.2 meq/L 3.5-5.1 379) [id number] 00:08:00 Test Item Value Reference Range Interpretation Comments GLUCOSE RANDOM (BEAKER) (test code 237 mg/dL 70-105 H = 652) CBC W/PLT COUNT & AUTO [id number] 22:28:00 Test Item Value Reference Range Interpretation [...] = 413) RAD, CHEST, 1 VIEW, NON [id number] 21:50:00Reason for exam:->chest tubes/intubationShould this be performed [...] MDReport Verified Date/Time: 01/13/2018 21:50:50 Reading Location: [address] Consult Reading Room THROMBOELASTOGRAPH (TEG)2018-01-13 21:45:00 [...] % 0.0-5.0 code = 1414) BASIC METABOLIC [id number] 21:35:00 Test Item Value Reference Range Interpretation [...] APPLICABLE FOR DIALYSIS PATIEN TS. Specimen slightly [id number] 21:06:00 Test Item Value Reference Range Interpretation Comments PHOSPHORUS (BEAKER) (test code = 3.7 mg/dL 2.3-4.7 604) [id number] 21:06:00 Test Item Value Reference Range Interpretation Comments MAGNESIUM (BEAKER) (test code = 2.0 mg/dL 1.6-2.6 627) LACTIC ACID, ARTERIAL, WHOLE [id number] 21:06:00 Test Item Value Reference Range Interpretation Comments LACTATE BLOOD ARTERIAL (2) 1.8 mmol/L 0.5-2.2 (BEAKER) (test code = 2874) Effective 01/04/2016: Units/Reference Range ChangeNew: 0.5-2.2 mmol/L Previous: 5-20 mg/dLSpecimen slightly [id number] 21:01:00 Test Item Value Reference Range Interpretation Comments PARTIAL THROMBOPLASTIN TIME 35.1 seconds 22.5-36.0 (BEAKER) (test code = 760) [id number] 21:00:00 Test Item Value Reference Range Interpretation Comments FIBRINOGEN LEVEL (BEAKER) (test 253 mg/dl 225-434 code = 658) PROTHROMBIN [id number] 20:59:00 Test Item Value Reference Range Interpretation Comments PROTIME (BEAKER) (test code = 16.4 seconds 11.7-14.7 H 759) INR (BEAKER) (test code = 370) 1.3 <=5.9 RECOMMENDED COUMADIN/WARFARIN INR THERAPY RANGESSTANDARD DOSE: 2.0 - 3.0 Includes: PROPHYLAXIS forvenous thrombosis, systemic embolization; TREATMENT for venous thrombosis and/or pulmonary embolus.HIGH RISK: Target INR is 2.5-3.5 for patients with mechanical heart valves.BLOOD GAS, [id number] 20:47:00 Test Item Value Reference Range Interpretation [...] (test code = 1819) 40.0 % GLUCOSE-STAT [id number] 20:47:00 Test Item Value Reference Range Interpretation Comments GLUCOSE RANDOM (BEAKER) (test code 235 mg/dL 70-110 H = 652) CALCIUM, [id number] 20:47:00 Test Item Value Reference Range Interpretation Comments CALCIUM IONIZED (BEAKER) (test 0.97 mmol/L 1.12-1.27 L code = 698) PH, BLOOD (BEAKER) (test code = 7.39 1810) HGB/HCT (H&H) - STAT [id number] 20:46:00 Test Item Value Reference Range Interpretation Comments HEMOGLOBIN (BEAKER) (test code = 7.7 g/dL 13.0-16.8 L 410) HEMATOCRIT (BEAKER) (test code = 23.0 % 40.0-50.0 L 411) POTASSIUM-STAT [id number] 20:46:00 Test Item Value Reference Range Interpretation Comments POTASSIUM (BEAKER) (test code = 3.4 meq/L 3.6-5.5 L 379) SODIUM NA-STAT [id number] 20:46:00 Test Item Value Reference Range Interpretation Comments SODIUM (BEAKER) (test code = 381) 133 meq/L 135-148 L OXYGEN SATURATION, [id number] 20:42:00 Test Item Value Reference Range Interpretation Comments O2 SATURATION (MEASURED) (BEAKER) 74.1 % (test code = 1455) BLOOD GAS, [id number] 18:58:00 Test Item Value Reference Range Interpretation [...] code = 1819) 100.0 % SODIUM NA-STAT [id number] 18:58:00 Test Item Value Reference Range Interpretation Comments SODIUM (BEAKER) (test code = 381) 131 meq/L 135-148 L POTASSIUM-STAT [id number] 18:58:00 Test Item Value Reference Range Interpretation Comments POTASSIUM (BEAKER) (test code = 3.4 meq/L 3.6-5.5 L 379) GLUCOSE-STAT [id number] 18:58:00 Test Item Value Reference Range Interpretation Comments GLUCOSE RANDOM (BEAKER) (test code 214 mg/dL 70-110 H = 652) HGB/HCT (H&H) - STAT [id number] 18:58:00 Test Item Value Reference Range Interpretation [...] % 0.0-5.0 code = 1414) BLOOD GAS, [id number] 18:11:00 Test Item Value Reference Range Interpretation [...] code = 1819) 97.0 % SODIUM NA-STAT [id number] 18:11:00 Test Item Value Reference Range Interpretation Comments SODIUM (BEAKER) (test code = 381) 132 meq/L 135-148 L GLUCOSE-STAT [id number] 18:11:00 Test Item Value Reference Range Interpretation Comments GLUCOSE RANDOM (BEAKER) (test code 200 mg/dL 70-110 H = 652) HGB/HCT (H&H) - STAT [id number] 18:11:00 Test Item Value Reference Range Interpretation Comments HEMOGLOBIN (BEAKER) (test code = 8.2 g/dL 13.0-16.8 L 410) HEMATOCRIT (BEAKER) (test code = 24.0 % 40.0-50.0 L 411) POTASSIUM-STAT [id number] 18:07:00 Test Item Value Reference Range Interpretation Comments POTASSIUM (BEAKER) (test code = 3.5 meq/L 3.6-5.5 L 379) [id number] 16:37:00 Test Item Value Reference Range Interpretation Comments PHOSPHORUS (BEAKER) (test code = 2.5 mg/dL 2.3-4.7 604) [id number] 16:37:00 Test Item Value Reference Range Interpretation Comments MAGNESIUM (BEAKER) (test code = 2.1 mg/dL 1.6-2.6 627) [id number] 16:29:00 Test Item Value Reference Range Interpretation [...] for patients with mechanical heart valves.BLOOD GAS, [id number] 16:16:00 Test Item Value Reference Range Interpretation [...] (test code = 1819) 40.0 % CALCIUM, [id number] 16:14:00 Test Item Value Reference Range Interpretation Comments CALCIUM IONIZED (BEAKER) (test 1.09 mmol/L 1.12-1.27 L code = 698) PH, BLOOD (BEAKER) (test code = 7.64 1810) GLUCOSE-STAT [id number] 16:12:00 Test Item Value Reference Range Interpretation Comments GLUCOSE RANDOM (BEAKER) (test code 182 mg/dL 70-110 H = 652) CALCIUM, [id number] 12:53:00 Test Item Value Reference Range Interpretation Comments CALCIUM IONIZED (BEAKER) (test 1.12 mmol/L 1.12-1.27 code = 698) PH, BLOOD (BEAKER) (test code = 7.51 1810) BLOOD GAS, [id number] 12:53:00 Test Item Value Reference Range Interpretation [...] 1819) 40.0 % HGB/HCT (H&H) - STAT [id number] 12:53:00 Test Item Value Reference Range Interpretation Comments HEMOGLOBIN (BEAKER) (test code = 8.3 g/dL 13.0-16.8 L 410) HEMATOCRIT (BEAKER) (test code = 24.0 % 40.0-50.0 L 411) GLUCOSE-STAT [id number] 12:53:00 Test Item Value Reference Range Interpretation Comments GLUCOSE RANDOM (BEAKER) (test code 185 mg/dL 70-110 H = 652) POTASSIUM-STAT [id number] 12:52:00 Test Item Value Reference Range Interpretation Comments POTASSIUM (BEAKER) (test code = 3.7 meq/L 3.6-5.5 379) CBC W/PLT COUNT & AUTO [id number] 11:04:00 Test Item Value Reference Range Interpretation [...] 0-0 H (test code = 413) POTASSIUM-STAT [id number] 10:49:00 Test Item Value Reference Range Interpretation Comments POTASSIUM (BEAKER) (test code = 3.8 meq/L 3.6-5.5 379) HEPARIN ASSAY - [id number] 09:55:00 Test Item Value Reference Range Interpretation Comments UNFRACTIONATED HEPARIN-ANTI 10A 0.14 u/ml 0.30-0.70 L (BEAKER) (test code = 1606) Recommendations for Monitoring Unfractionated Heparin Therapeutic Range: 0.3- 0.7 u/mL with continuous IV [id number] 09:54:00 Test Item Value Reference Range Interpretation Comments PARTIAL THROMBOPLASTIN TIME 57.6 seconds 22.5-36.0 H (BEAKER) (test code = 760) BLOOD GAS, [id number] 09:33:00 Test Item Value Reference Range Interpretation [...] (test code = 1819) 40.0 % GLUCOSE-STAT [id number] 09:33:00 Test Item Value Reference Range Interpretation Comments GLUCOSE RANDOM (BEAKER) (test code 192 mg/dL 70-110 H = 652) GLUCOSE-STAT [id number] 09:33:00 Test Item Value Reference Range Interpretation Comments GLUCOSE RANDOM (BEAKER) (test code 192 mg/dL 70-110 H = 652) CALCIUM, [id number] 09:32:00 Test Item Value Reference Range Interpretation Comments CALCIUM IONIZED (BEAKER) (test 1.15 mmol/L 1.12-1.27 code = 698) PH, BLOOD (BEAKER) (test code = 7.51 1810) BLOOD GAS, [id number] 07:23:00 Test Item Value Reference Range Interpretation [...] % 0.0-5.0 code = 1414) BLOOD GAS, [id number] 06:13:00 Test Item Value Reference Range Interpretation [...] code = 1819) 40.0 % BLOOD GAS, [id number] 05:13:00 Test Item Value Reference Range Interpretation [...] (BEAKER) (test code = 1819) 100.0 % [id number] 04:41:00 Test Item Value Reference Range Interpretation Comments PARTIAL THROMBOPLASTIN TIME 61.3 seconds 22.5-36.0 H (BEAKER) (test code = 760) RAD, CHEST, 1 VIEW, NON [id number] 04:38:00Reason for exam:- >impella/ECMO/intubationShould this be performed at the bedside?->YesFINAL REPORT CLINICAL INDICATION: Support lines. Comparison: 01/12/2018 The cardiomediastinal contours are stable. Central pulmonary vascular prominence and bilateral parenchymalopacities are previous. There is no pneumothorax. Support lines are stable. Signed: Kellen Parra MDReport Verified Date/Time: 01/13/2018 04:38:41 Reading Location: [address] Reading Room HEPATIC FUNCTION [id number] 04:25:00 Test Item Value Reference Range Interpretation [...] 2232 U/L 6-55 H 347) Specimen slightly [id number] 04:19:00 Test Item Value Reference Range Interpretation Comments PHOSPHORUS (BEAKER) (test code = 4.1 mg/dL 2.3-4.7 604) [id number] 04:19:00 Test Item Value Reference Range Interpretation Comments MAGNESIUM (BEAKER) (test code = 1.9 mg/dL 1.6-2.6 627) [id number] 04:19:00 Test Item Value Reference Range Interpretation Comments CALCIUM (BEAKER) (test code = 697) 8.6 mg/dL 8.4-10.2 BASIC METABOLIC [id number] 04:19:00 Test Item Value Reference Range Interpretation [...] 1658 U/L 125-220 H code = 635) [id number] 04:16:00 Test Item Value Reference Range Interpretation Comments FIBRINOGEN LEVEL (BEAKER) (test 299 mg/dl 225-434 code = 658) LACTIC ACID, ARTERIAL, WHOLE [id number] 04:16:00 Test Item Value Reference Range Interpretation Comments LACTATE BLOOD ARTERIAL (2) 0.8 mmol/L 0.5-2.2 (BEAKER) (test code = 2874) Effective 01/04/2016: Units/Reference Range ChangeNew: 0.5-2.2 mmol/L Previous: 5-20 mg/dLSpecimen slightly ictericPROTHROMBIN [id number] 04:15:00 Test Item Value Reference Range Interpretation Comments PROTIME (BEAKER) (test code = 15.8 seconds 11.7-14.7 H 759) INR (BEAKER) (test code = 370) 1.3 <=5.9 RECOMMENDED COUMADIN/WARFARIN INR THERAPY RANGESSTANDARD DOSE: 2.0 - 3.0 Includes: PROPHYLAXIS forvenous thrombosis, systemic embolization; TREATMENT for venous thrombosis and/or pulmonary embolus.HIGH RISK: Target INR is 2.5-3.5 for patients with mechanical heart valves.CALCIUM, [id number] 04:04:00 Test Item Value Reference Range Interpretation Comments CALCIUM IONIZED (BEAKER) (test 1.15 mmol/L 1.12-1.27 code = 698) PH, BLOOD (BEAKER) (test code = 7.33 1810) BLOOD GAS, [id number] 04:03:00 Test Item Value Reference Range Interpretation [...] (test code = 1819) 40.0 % PLATELET [id number] 03:58:00 Test Item Value Reference Range Interpretation Comments PLATELET COUNT (BEAKER) (test code 89 K/CU MM 150-450 L = 756) OXYGEN SATURATION, [id number] 03:57:00 Test Item Value Reference Range Interpretation Comments O2 SATURATION (MEASURED) (BEAKER) 79.4 % (test code = 1455) BLOOD GAS, [id number] 01:19:00 Test Item Value Reference Range Interpretation [...] (test code = 1819) 40.0 % GLUCOSE-STAT [id number] 01:19:00 Test Item Value Reference Range Interpretation Comments GLUCOSE RANDOM (BEAKER) (test code 177 mg/dL 70-110 H = 652) POTASSIUM-STAT [id number] 01:18:00 Test Item Value Reference Range Interpretation Comments POTASSIUM (BEAKER) (test code = 4.0 meq/L 3.6-5.5 379) CALCIUM, [id number] 01:17:00 Test Item Value Reference Range Interpretation [...] (test 0.0 % 0.0-5.0 code = 1414) [id number] 20:36:00 Test Item Value Reference Range Interpretation Comments POTASSIUM (BEAKER) (test code = 4.2 meq/L 3.5-5.1 379) [id number] 20:36:00 Test Item Value Reference Range Interpretation Comments MAGNESIUM (BEAKER) (test code = 1.8 mg/dL 1.6-2.6 627) [id number] 20:36:00 Test Item Value Reference Range Interpretation Comments PHOSPHORUS (BEAKER) (test code = 3.5 mg/dL 2.3-4.7 604) LACTIC ACID, ARTERIAL, WHOLE [id number] 20:33:00 Test Item Value Reference Range Interpretation Comments LACTATE BLOOD ARTERIAL (2) 0.8 mmol/L 0.5-2.2 (BEAKER) (test code = 2874) Effective 01/04/2016: Units/Reference Range ChangeNew: 0.5-2.2 mmol/L Previous: 5-20 mg/dLSpecimen slightly ictericBLOOD GAS, [id number] 20:20:00 Test Item Value Reference Range Interpretation [...] (test code = 1819) 40.0 % GLUCOSE-STAT [id number] 20:20:00 Test Item Value Reference Range Interpretation Comments GLUCOSE RANDOM (BEAKER) (test code 180 mg/dL 70-110 H = 652) [id number] 18:34:00 Test Item Value Reference Range Interpretation Comments GLUCOSE RANDOM (BEAKER) (test code 218 mg/dL 70-105 H = 652) BLOOD GAS, [id number] 18:18:00 Test Item Value Reference Range Interpretation [...] (BEAKER) (test code = 1819) 40.0 % [id number] 17:12:00 Test Item Value Reference Range Interpretation Comments PARTIAL THROMBOPLASTIN TIME 54.1 seconds 22.5-36.0 H (BEAKER) (test code = 760) [id number] 17:12:00 Test Item Value Reference Range Interpretation Comments FIBRINOGEN LEVEL (BEAKER) (test 285 mg/dl 225-434 code = 658) PROTHROMBIN [id number] 17:10:00 Test Item Value Reference Range Interpretation [...] ChangeNew: 0.5-2.2 mmol/L Previous: 5-20 mg/dLSpecimen slightly [id number] 17:01:00 Test Item Value Reference Range Interpretation Comments POTASSIUM (BEAKER) (test code = 4.5 meq/L 3.5-5.1 379) [id number] 17:01:00 Test Item Value Reference Range Interpretation Comments GLUCOSE RANDOM (BEAKER) (test code 239 mg/dL 70-105 H = 652) PLATELET [id number] 16:46:00 Test Item Value Reference Range Interpretation Comments PLATELET COUNT (BEAKER) (test code 86 K/CU MM 150-450 L = 756) BLOOD GAS, [id number] 16:36:00 Test Item Value Reference Range Interpretation [...] (test 37.0 C code = 1818) CALCIUM, [id number] 16:36:00 Test Item Value Reference Range Interpretation Comments CALCIUM IONIZED (BEAKER) (test 1.08 mmol/L 1.12-1.27 L code = 698) PH, BLOOD (BEAKER) (test code = 7.46 1810) [id number] 15:00:00 Test Item Value Reference Range Interpretation Comments POTASSIUM (BEAKER) (test code = 4.7 meq/L 3.5-5.1 379) [id number] 15:00:00 Test Item Value Reference Range Interpretation Comments GLUCOSE RANDOM (BEAKER) (test code 210 mg/dL 70-105 H = 652) BLOOD GAS, [id number] 14:42:00 Test Item Value Reference Range Interpretation [...] 40.0 % RAD, CHEST, 1 VIEW, NON [id number] 14:41:00Reason for exam:->chest tube insertionFINAL REPORT CHEST [...] Wilkerson Verified Date/Time: 01/12/2018 14:41:22 Reading Location: [facility] C013T Transitional Reading Room MBOELASTOGRAPH (TEG)2018-01-12 [...] (test 0.0 % 0.0-5.0 code = 1414) [id number] 11:23:00 Test Item Value Reference Range Interpretation [...] exclusion of thrombosis is within 95-100% range. [id number] 10:10:00 Test Item Value Reference Range Interpretation Comments MAGNESIUM (BEAKER) 2.1 mg/dL 1.6-2.6 Specimen slightly (test code = 627) hemolyzed [id number] 10:10:00 Test Item Value Reference Range Interpretation Comments PHOSPHORUS (BEAKER) 4.2 mg/dL 2.3-4.7 Specimen slightly (test code = 604) hemolyzed [id number] 10:10:00 Test Item Value Reference Range Interpretation Comments POTASSIUM (BEAKER) 5.0 meq/L 3.5-5.1 Specimen slightly (test code = 379) hemolyzed [id number] 10:10:00 Test Item Value Reference Range Interpretation Comments GLUCOSE RANDOM (BEAKER) (test code 204 mg/dL 70-105 H = 652) [id number] 10:07:00 Test Item Value Reference Range Interpretation Comments FIBRINOGEN LEVEL (BEAKER) (test 251 mg/dl 225-434 code = 658) ANTITHROMBIN [id number] 10:04:00 Test Item Value Reference Range Interpretation Comments ANTITHROMBIN III ACTIVITY (BEAKER) 46.0 % 80.0-120.0 L (test code = 711) [id number] 09:58:00 Test Item Value Reference Range Interpretation Comments PARTIAL THROMBOPLASTIN TIME 59.8 seconds 22.5-36.0 H (BEAKER) (test code = 760) PROTHROMBIN [id number] 09:57:00 Test Item Value Reference Range Interpretation Comments PROTIME (BEAKER) (test code = 19.3 seconds 11.7-14.7 H 759) INR (BEAKER) (test code = 370) 1.6 <=5.9 RECOMMENDED COUMADIN/WARFARIN INR THERAPY RANGESSTANDARD DOSE: 2.0 - 3.0 Includes: PROPHYLAXIS forvenous thrombosis, systemic embolization; TREATMENT for venous thrombosis and/or pulmonary embolus.HIGH RISK: Target INR is 2.5-3.5 for patients with mechanical heart valves.PLATELET [id number] 09:49:00 Test Item Value Reference Range Interpretation Comments PLATELET COUNT (BEAKER) (test code 94 K/CU MM 150-450 L = 756) BLOOD GAS, [id number] 09:47:00 Test Item Value Reference Range Interpretation [...] (test code = 1819) 40.0 % CALCIUM, [id number] 09:46:00 Test Item Value Reference Range Interpretation Comments CALCIUM IONIZED (BEAKER) (test 1.12 mmol/L 1.12-1.27 code = 698) PH, BLOOD (BEAKER) (test code = 7.47 1810) HEPARIN ASSAY - [id number] 08:21:00 Test Item Value Reference Range Interpretation Comments UNFRACTIONATED HEPARIN-ANTI 10A < u/ml 0.30-0.70 L (BEAKER) (test code = 1606) Recommendations for Monitoring Unfractionated Heparin Therapeutic Range: 0.3- 0.7 u/mL with continuous IV infusionLACTATE DEHYDROGENASE (LDH)2018-01-12 07:40:00 Test Item Value Reference Range Interpretation Comments LACTATE DEHYDROGENASE (BEAKER) (test 3247 U/L 125-220 H code = 635) [id number] 07:38:00 Test Item Value Reference Range Interpretation Comments MAGNESIUM (BEAKER) (test code = 2.3 mg/dL 1.6-2.6 627) [id number] 07:38:00 Test Item Value Reference Range Interpretation Comments GLUCOSE RANDOM (BEAKER) (test code 217 mg/dL 70-105 H = 652) LACTIC ACID, ARTERIAL, WHOLE [id number] 07:27:00 Test Item Value Reference Range Interpretation Comments LACTATE BLOOD ARTERIAL (2) 1.4 mmol/L 0.5-2.2 (BEAKER) (test code = 2874) Effective 01/04/2016: Units/Reference Range ChangeNew: 0.5-2.2 mmol/L Previous: 5-20 mg/dLSpecimen slightly ictericGLUCOSE-STAT [id number] 06:55:00 Test Item Value Reference Range Interpretation Comments GLUCOSE RANDOM (BEAKER) (test code 212 mg/dL 70-110 H = 652) BLOOD GAS, [id number] 06:55:00 Test Item Value Reference Range Interpretation [...] (test code = 1819) 40.0 % POTASSIUM-STAT [id number] 06:52:00 Test Item Value Reference Range Interpretation Comments POTASSIUM (BEAKER) (test code = 4.8 meq/L 3.6-5.5 379) BLOOD GAS, [id number] 06:43:00 Test Item Value Reference Range Interpretation [...] 100.0 % RAD, CHEST, 1 VIEW, NON [id number] 06:14:00Reason for exam:- >impella/ECMO/intubationShould this be performed [...] MDReport Verified Date/Time: 01/12/2018 06:14:29 Reading Location: [facility] C0[facility] Transitional Reading Room LACTATE DEHYDROGENASE (LDH)2018-01-12 05:03:00 Test Item Value Reference Range Interpretation Comments LACTATE DEHYDROGENASE (BEAKER) (test 3014 U/L 125-220 H code = 635) HEPATIC FUNCTION [id number] 05:03:00 Test Item Value Reference Range Interpretation [...] 1544 U/L 6-55 H 347) Specimen slightly [id number] 05:01:00 Test Item Value Reference Range Interpretation Comments PHOSPHORUS (BEAKER) (test code = 5.0 mg/dL 2.3-4.7 H 604) [id number] 05:01:00 Test Item Value Reference Range Interpretation Comments MAGNESIUM (BEAKER) (test code = 2.1 mg/dL 1.6-2.6 627) [id number] 05:01:00 Test Item Value Reference Range Interpretation Comments CALCIUM (BEAKER) (test code = 697) 8.5 mg/dL 8.4-10.2 BASIC METABOLIC [id number] 05:01:00 Test Item Value Reference Range Interpretation [...] TS. Specimen slightly ictericLACTIC ACID, ARTERIAL, WHOLE [id number] 04:42:00 Test Item Value Reference Range Interpretation Comments LACTATE BLOOD ARTERIAL (2) 1.5 mmol/L 0.5-2.2 (BEAKER) (test code = 2874) Effective 01/04/2016: Units/Reference Range ChangeNew: 0.5-2.2 mmol/L Previous: 5-20 mg/dLSpecimen slightly [id number] 04:38:00 Test Item Value Reference Range Interpretation Comments FIBRINOGEN LEVEL (BEAKER) (test 252 mg/dl 225-434 code = 658) [id number] 04:38:00 Test Item Value Reference Range Interpretation Comments PARTIAL THROMBOPLASTIN TIME 54.6 seconds 22.5-36.0 H (BEAKER) (test code = 760) CBC W/PLT COUNT & AUTO [id number] 04:37:00 Test Item Value Reference Range Interpretation [...] PERCENT (BEAKER) (test code = 2801) PROTHROMBIN [id number] 04:37:00 Test Item Value Reference Range Interpretation Comments PROTIME (BEAKER) (test code = 19.9 seconds 11.7-14.7 H 759) INR (BEAKER) (test code = 370) 1.7 <=5.9 RECOMMENDED COUMADIN/WARFARIN INR THERAPY RANGESSTANDARD DOSE: 2.0 - 3.0 Includes: PROPHYLAXIS forvenous thrombosis, systemic embolization; TREATMENT for venous thrombosis and/or pulmonary embolus.HIGH RISK: Target INR is 2.5-3.5 for patients with mechanical heart valves.CALCIUM, [id number] 04:31:00 Test Item Value Reference Range Interpretation Comments CALCIUM IONIZED (BEAKER) (test 1.12 mmol/L 1.12-1.27 code = 698) PH, BLOOD (BEAKER) (test code = 7.42 1810) BLOOD GAS, [id number] 04:30:00 Test Item Value Reference Range Interpretation [...] (test code = 1819) 40.0 % PLATELET [id number] 04:23:00 Test Item Value Reference Range Interpretation Comments PLATELET COUNT (BEAKER) (test 110 K/CU MM 150-450 L code = 756) OXYGEN SATURATION, [id number] 04:14:00 Test Item Value Reference Range Interpretation Comments O2 SATURATION (MEASURED) (BEAKER) 79.7 % (test code = 1455) [id number] 02:54:00 Test Item Value Reference Range Interpretation Comments PARTIAL THROMBOPLASTIN TIME 134.3 seconds 22.5-36.0 H (BEAKER) (test code = 760) [id number] 02:25:00 Test Item Value Reference Range Interpretation Comments PARTIAL THROMBOPLASTIN TIME 94.0 seconds 22.5-36.0 H (BEAKER) (test code = 760) BLOOD GAS, [id number] 01:56:00 Test Item Value Reference Range Interpretation [...] (test code = 1819) 40.0 % GLUCOSE-STAT [id number] 01:53:00 Test Item Value Reference Range Interpretation Comments GLUCOSE RANDOM (BEAKER) (test code 201 mg/dL 70-110 H = 652) POTASSIUM-STAT [id number] 01:52:00 Test Item Value Reference Range Interpretation Comments POTASSIUM (BEAKER) (test code = 4.9 meq/L 3.6-5.5 379) LACTIC ACID, ARTERIAL, WHOLE [id number] 01:18:00 Test Item Value Reference Range Interpretation Comments LACTATE BLOOD ARTERIAL (2) 2.0 mmol/L 0.5-2.2 (BEAKER) (test code = 2874) Effective 01/04/2016: Units/Reference Range ChangeNew: 0.5-2.2 mmol/L Previous: 5-20 mg/dLSpecimen slightly [id number] 01:18:00 Test Item Value Reference Range Interpretation Comments POTASSIUM (BEAKER) (test code = 5.1 meq/L 3.5-5.1 379) [id number] 01:18:00 Test Item Value Reference Range Interpretation Comments GLUCOSE RANDOM (BEAKER) (test code 194 mg/dL 70-105 H = 652) PROTHROMBIN [id number] 01:15:00 Test Item Value Reference Range Interpretation Comments PROTIME (BEAKER) (test code = 21.2 seconds 11.7-14.7 H 759) INR (BEAKER) (test code = 370) 1.8 <=5.9 RECOMMENDED COUMADIN/WARFARIN INR THERAPY RANGESSTANDARD DOSE: 2.0 - 3.0 Includes: PROPHYLAXIS forvenous thrombosis, systemic embolization; TREATMENT for venous thrombosis and/or pulmonary embolus.HIGH RISK: Target INR is 2.5-3.5 for patients with mechanical heart valves.[id number] 01:15:00 Test Item Value Reference Range Interpretation Comments FIBRINOGEN LEVEL (BEAKER) (test 233 mg/dl 225-434 code = 658) PLATELET [id number] 01:01:00 Test Item Value Reference Range Interpretation Comments PLATELET COUNT (BEAKER) (test code 84 K/CU MM 150-450 L = 756) BLOOD GAS, [id number] 01:00:00 Test Item Value Reference Range Interpretation [...] (test code = 1819) 40.0 % CALCIUM, [id number] 01:00:00 Test Item Value Reference Range Interpretation [...] 0.0-5.0 (BEAKER) (test code = 1414) GLUCOSE-STAT [id number] 23:53:00 Test Item Value Reference Range Interpretation Comments GLUCOSE RANDOM (BEAKER) (test code 182 mg/dL 70-110 H = 652) BLOOD GAS, [id number] 23:52:00 Test Item Value Reference Range Interpretation [...] FIO2 (BEAKER) (test code = 1819) 40 [id number] 23:05:00 Test Item Value Reference Range Interpretation Comments PARTIAL THROMBOPLASTIN TIME > seconds 22.5-36.0 HH (BEAKER) (test code = 760) BLOOD GAS, [id number] 23:01:00 Test Item Value Reference Range Interpretation [...] (BEAKER) (test code = 1819) 100.0 % [id number] 22:46:00 Test Item Value Reference Range Interpretation Comments FIBRINOGEN LEVEL (BEAKER) (test 223 mg/dl 225-434 L code = 658) PROTHROMBIN [id number] 22:45:00 Test Item Value Reference Range Interpretation Comments PROTIME (BEAKER) (test code = 23.0 seconds 11.7-14.7 H 759) INR (BEAKER) (test code = 370) 2.0 <=5.9 RECOMMENDED COUMADIN/WARFARIN INR THERAPY RANGESSTANDARD DOSE: 2.0 - 3.0 Includes: PROPHYLAXIS forvenous thrombosis, systemic embolization; TREATMENT for venous thrombosis and/or pulmonary embolus.HIGH RISK: Target INR is 2.5-3.5 for patients with mechanical heart valves.BLOOD GAS, [id number] 22:22:00 Test Item Value Reference Range Interpretation [...] (test code = 1819) 40.0 % CALCIUM, [id number] 22:21:00 Test Item Value Reference Range Interpretation Comments CALCIUM IONIZED (BEAKER) (test 1.05 mmol/L 1.12-1.27 L code = 698) PH, BLOOD (BEAKER) (test code = 7.67 1810) PLATELET [id number] 22:21:00 Test Item Value Reference Range Interpretation Comments PLATELET COUNT (BEAKER) (test code 71 K/CU MM 150-450 L = 756) GLUCOSE-STAT [id number] 22:20:00 Test Item Value Reference Range Interpretation Comments GLUCOSE RANDOM (BEAKER) (test code 189 mg/dL 70-110 H = 652) POTASSIUM-STAT [id number] 22:19:00 Test Item Value Reference Range Interpretation [...] 2133 U/L 125-220 H code = 635) [id number] 20:55:00 Test Item Value Reference Range Interpretation Comments POTASSIUM (BEAKER) (test code = 5.4 meq/L 3.5-5.1 H 379) [id number] 20:55:00 Test Item Value Reference Range Interpretation Comments MAGNESIUM (BEAKER) (test code = 1.6 mg/dL 1.6-2.6 627) [id number] 20:55:00 Test Item Value Reference Range Interpretation Comments PHOSPHORUS (BEAKER) (test code = 2.9 mg/dL 2.3-4.7 604) GLUCOSE-STAT [id number] 20:31:00 Test Item Value Reference Range Interpretation Comments GLUCOSE RANDOM (BEAKER) (test code 166 mg/dL 70-110 H = 652) POTASSIUM-STAT [id number] 20:30:00 Test Item Value Reference Range Interpretation Comments POTASSIUM (BEAKER) (test code = 5.2 meq/L 3.6-5.5 379) BLOOD GAS, [id number] 20:30:00 Test Item Value Reference Range Interpretation [...] code = 1819) 40.0 % OXYGEN SATURATION, [id number] 18:46:00 Test Item Value Reference Range Interpretation Comments O2 SATURATION (MEASURED) (BEAKER) 81.5 % (test code = 1455) RAD, CHEST, 1 VIEW, NON [id number] 18:27:00Reason for exam:->impella/ECMO placementShould this be performed [...] MDReport Verified Date/Time: 01/11/2018 18:27:33 Reading Location: [facility] B1 C013X Ortho Consult Reading Room [id number] 18:11:00 Test Item Value Reference Range Interpretation Comments PARTIAL THROMBOPLASTIN TIME > seconds 22.5-36.0 HH (BEAKER) (test code = 760) LACTATE DEHYDROGENASE (LDH)2018-01-11 18:09:00 Test Item Value Reference Range Interpretation Comments LACTATE DEHYDROGENASE 1590 U/L 125-220 H Specim en slightly (BEAKER) (test code = hemoly zed 635) BASIC METABOLIC [id number] 18:08:00 Test Item Value Reference Range Interpretation [...] S NOT APPLICABLE FOR DIALYSIS PATIEN TS. [id number] 17:54:00 Test Item Value Reference Range Interpretation Comments MAGNESIUM (BEAKER) 1.8 mg/dL 1.6-2.6 Specimen slightly (test code = 627) hemolyzed [id number] 17:54:00 Test Item Value Reference Range Interpretation Comments PHOSPHORUS (BEAKER) 4.6 mg/dL 2.3-4.7 Specimen slightly (test code = 604) hemolyzed LACTIC ACID, ARTERIAL, WHOLE [id number] 17:53:00 Test Item Value Reference Range Interpretation Comments LACTATE BLOOD 10.8 mmol/L 0.5-2.2 H Specimen sligh tly ARTERIAL (2) (BEAKER) hemoly zed (test code = 2874) Effective 01/04/2016: Units/Reference Range ChangeNew: 0.5-2.2 mmol/L Previous: 5-20 mg/xQR-[id number] 17:46:00 Test Item Value Reference Range Interpretation [...] exclusion of thrombosis is within 95-100% range. [id number] 17:46:00 Test Item Value Reference Range Interpretation Comments FIBRINOGEN LEVEL (BEAKER) (test 201 mg/dl 225-434 L code = 658) PROTHROMBIN [id number] 17:45:00 Test Item Value Reference Range Interpretation Comments PROTIME (BEAKER) (test code = 24.4 seconds 11.7-14.7 H 759) INR (BEAKER) (test code = 370) 2.2 <=5.9 RECOMMENDED COUMADIN/WARFARIN INR THERAPY RANGESSTANDARD DOSE: 2.0 - 3.0 Includes: PROPHYLAXIS forvenous thrombosis, systemic embolization; TREATMENT for venous thrombosis and/or pulmonary embolus.HIGH RISK: Target INR is 2.5-3.5 for patients with mechanical heart valves.BLOOD GAS, [id number] 17:44:00 Test Item Value Reference Range Interpretation [...] code = 1819) 40.0 % SODIUM NA-STAT [id number] 17:44:00 Test Item Value Reference Range Interpretation Comments SODIUM (BEAKER) (test code = 381) 134 meq/L 135-148 L POTASSIUM-STAT [id number] 17:44:00 Test Item Value Reference Range Interpretation Comments POTASSIUM (BEAKER) (test code = 6.2 meq/L 3.6-5.5 HH 379) GLUCOSE-STAT [id number] 17:44:00 Test Item Value Reference Range Interpretation Comments GLUCOSE RANDOM (BEAKER) (test code 147 mg/dL 70-110 H = 652) HGB/HCT (H&H) - STAT [id number] 17:44:00 Test Item Value Reference Range Interpretation Comments HEMOGLOBIN (BEAKER) (test code = 9.9 g/dL 13.0-16.8 L 410) HEMATOCRIT (BEAKER) (test code = 29.0 % 40.0-50.0 L 411) CALCIUM, [id number] 17:41:00 Test Item Value Reference Range Interpretation Comments CALCIUM IONIZED (BEAKER) (test 1.03 mmol/L 1.12-1.27 L code = 698) PH, BLOOD (BEAKER) (test code = 7.52 1810) OXYGEN SATURATION, [id number] 17:39:00 Test Item Value Reference Range Interpretation Comments O2 SATURATION (MEASURED) (BEAKER) 84.5 % (test code = 1455) CBC W/PLT COUNT & AUTO [id number] 17:37:00 Test Item Value Reference Range Interpretation [...] 0-1 PERCENT (BEAKER) (test code = 2801) [id number] 16:35:00 Test Item Value Reference Range Interpretation Comments ACTIVATED CLOTTING TIME 230 sec TEST ED AT [place] [address] ([facility]) (test code = [place] [address]) [address] [id number] 16:35:00 Test Item Value Reference Range Interpretation Comments ACTIVATED CLOTTING TIME 191 sec TEST ED AT [place] [address] ([facility]) (test code = [place] [address]) [address] BLOOD GAS, [id number] 16:20:00 Test Item Value Reference Range Interpretation [...] (test code = 1819) 100 BLOOD GAS, [id number] 16:19:00 Test Item Value Reference Range Interpretation [...] drawn from ECMO circuitLACTIC ACID, ARTERIAL, WHOLE [id number] 14:07:00 Test Item Value Reference Range Interpretation Comments LACTATE BLOOD 13.1 mmol/L 0.5-2.2 H Specimen sligh tly ARTERIAL (2) (BEAKER) hemoly zed (test code = 2874) Effective 01/04/2016: Units/Reference Range ChangeNew: 0.5-2.2 mmol/L Previous: 5-20 mg/dLPROTHROMBIN [id number] 14:01:00 Test Item Value Reference Range Interpretation Comments PROTIME (BEAKER) (test code = 20.9 seconds 11.7-14.7 H 759) INR (BEAKER) (test code = 370) 1.8 <=5.9 RECOMMENDED COUMADIN/WARFARIN INR THERAPY RANGESSTANDARD DOSE: 2.0 - 3.0 Includes: PROPHYLAXIS forvenous thrombosis, systemic embolization; TREATMENT for venous thrombosis and/or pulmonary embolus.HIGH RISK: Target INR is 2.5-3.5 for patients with mechanical heart valves.[id number] 14:01:00 Test Item Value Reference Range Interpretation Comments FIBRINOGEN LEVEL (BEAKER) (test 227 mg/dl 225-434 code = 658) PLATELET [id number] 13:54:00 Test Item Value Reference Range Interpretation Comments PLATELET COUNT (BEAKER) (test 115 K/CU MM 150-450 L code = 756) BLOOD GAS, [id number] 13:47:00 Test Item Value Reference Range Interpretation [...] (test code = 1819) 40.0 % GLUCOSE-STAT [id number] 13:47:00 Test Item Value Reference Range Interpretation Comments GLUCOSE RANDOM (BEAKER) (test code 134 mg/dL 70-110 H = 652) [id number] 12:33:00 Test Item Value Reference Range Interpretation Comments POTASSIUM (BEAKER) (test code = 5.6 meq/L 3.5-5.1 H 379) PRN - repeat glucose levels every 1 hour or as specified by insulin titration orders until glucose level is less than 450 mg/[id number] 12:33:00 Test Item Value Reference Range Interpretation Comments GLUCOSE RANDOM (BEAKER) (test code = 43 mg/dL 70-105 L 652) PRN - repeat glucose levels every 1 hour or as specified by insulin titration orders until glucose level is less than 450 mg/dLBASIC METABOLIC [id number] 11:05:00 Test Item Value Reference Range Interpretation [...] until glucose level is less than 450 mg/[id number] 11:05:00 Test Item Value Reference Range Interpretation Comments GLUCOSE RANDOM (BEAKER) (test code = 34 mg/dL 70-105 LL 652) [id number] 10:44:00 Test Item Value Reference Range Interpretation Comments POTASSIUM (BEAKER) (test code = 5.9 meq/L 3.5-5.1 H 379) HEPATIC FUNCTION [id number] 10:44:00 Test Item Value Reference Range Interpretation [...] Previous: 5-20 mg/dLCBC W/PLT COUNT & AUTO [id number] 10:23:00 Test Item Value Reference Range Interpretation [...] (BEAKER) (test code = 2801) BLOOD GAS, [id number] 10:20:00 Test Item Value Reference Range Interpretation [...] (BEAKER) (test code = 1819) 40.0 % [id number] 09:01:00 Test Item Value Reference Range Interpretation Comments POTASSIUM (BEAKER) (test code = 5.9 meq/L 3.5-5.1 H 379) PRN - repeat glucose levels every 1 hour or as specified by insulin titration orders until glucose level is less than 450 mg/[id number] 09:01:00 Test Item Value Reference Range Interpretation Comments MAGNESIUM (BEAKER) (test code = 1.7 mg/dL 1.6-2.6 627) PRN - repeat glucose levels every 1 hour or as specified by insulin titration orders until glucose level is less than 450 mg/[id number] 09:01:00 Test Item Value Reference Range Interpretation Comments PHOSPHORUS (BEAKER) (test code = 4.7 mg/dL 2.3-4.7 604) PRN - repeat glucose levels every 1 hour or as specified by insulin titration orders until glucose level is less than 450 mg/[id number] 09:01:00 Test Item Value Reference Range Interpretation Comments GLUCOSE RANDOM (BEAKER) (test code = 50 mg/dL 70-105 L 652) PRN - repeat glucose levels every 1 hour or as specified by insulin titration orders until glucose level is less than 450 mg/dLCALCIUM, [id number] 08:47:00 Test Item Value Reference Range Interpretation Comments CALCIUM IONIZED (BEAKER) (test 1.24 mmol/L 1.12-1.27 code = 698) PH, BLOOD (BEAKER) (test code = 7.31 1810) [id number] 08:45:00 Test Item Value Reference Range Interpretation Comments PARTIAL THROMBOPLASTIN TIME 53.7 seconds 22.5-36.0 H (BEAKER) (test code = 760) BLOOD GAS, [id number] 08:41:00 Test Item Value Reference Range Interpretation [...] (test code = 1819) 40.0 % PH, [id number] 08:41:00 Test Item Value Reference Range Interpretation Comments PH ARTERIAL (BEAKER) (test code = 383) 7.31 7.35-7.45 L RAD, CHEST, 1 VIEW, NON [id number] 07:31:00Reason for exam:->s/p cardiac surgeryShould this be [...] Xie MDReport VerifiedDate/Time: 01/11/2018 07:31:38 Reading Location: [facility] C0X Ortho Consult Reading Room BLOOD GAS, ARTERIAL [...] code = 1819) 40.0 % BASIC METABOLIC [id number] 06:12:00 Test Item Value Reference Range Interpretation [...] NOT APPLICABLE FOR DIALYSIS PATIEN TS. POCT-GLUCOSE [id number] 05:58:00 Test Item Value Reference Range Interpretation Comments POC-GLUCOSE METER 121 mg/dL 70-110 H TESTED AT [facility] [address] (BEAKER) (test code = [place] [id number]) [address] POCT-GLUCOSE [id number] 05:58:00 Test Item Value Reference Range Interpretation Comments POC-GLUCOSE METER 66 mg/dL 70-110 L Will Repea t Test/TESTED (BEAKER) (test code = AT [facility] [address] [place] [id number]) [facility] [address] [id number] 05:51:00 Test Item Value Reference Range Interpretation Comments PHOSPHORUS (BEAKER) (test code = 3.5 mg/dL 2.3-4.7 604) [id number] 05:51:00 Test Item Value Reference Range Interpretation Comments MAGNESIUM (BEAKER) (test code = 1.9 mg/dL 1.6-2.6 627) BLOOD GAS, [id number] 05:47:00 Test Item Value Reference Range Interpretation [...] (test code = 1819) 40.0 % POCT-GLUCOSE [id number] 05:27:00 Test Item Value Reference Range Interpretation Comments POC-GLUCOSE METER 112 mg/dL 70-110 H TESTED AT [place] [address] ([facility]) (test code = [facility] 1538) [id number] POCT-GLUCOSE [id number] 05:27:00 Test Item Value Reference Range Interpretation Comments POC-GLUCOSE METER 106 mg/dL 70-110 TESTED AT [place] [address] ([facility]) (test code = [facility] 1538) [address] POCT-GLUCOSE [id number] 05:26:00 Test Item Value Reference Range Interpretation Comments POC-GLUCOSE METER 66 mg/dL 70-110 L TESTED AT [place] [address] ([facility]) (test code = [facility] [address] 1538) LACTIC ACID, ARTERIAL, WHOLE [id number] 04:59:00 Test Item Value Reference Range Interpretation Comments LACTATE BLOOD 12.2 mmol/L 0.5-2.2 H Specimen sligh tly ARTERIAL (2) (BEAKER) hemoly zed (test code = 2874) Effective 01/04/2016: Units/Reference Range ChangeNew: 0.5-2.2 mmol/L Previous: 5-20 mg/dLCALCIUM, [id number] 04:57:00 Test Item Value Reference Range Interpretation Comments CALCIUM IONIZED (BEAKER) (test 1.33 mmol/L 1.12-1.27 H code = 698) PH, BLOOD (BEAKER) (test code = 7.30 1810) BLOOD GAS, [id number] 04:57:00 Test Item Value Reference Range Interpretation [...] code = 1819) 45.0 % OXYGEN SATURATION, [id number] 04:56:00 Test Item Value Reference Range Interpretation Comments O2 SATURATION (MEASURED) (BEAKER) 83.2 % (test code = 1455) CBC W/PLT COUNT & AUTO [id number] 04:56:00 Test Item Value Reference Range Interpretation [...] PERCENT (BEAKER) (test code = 2801) CALCIUM, [id number] 03:38:00 Test Item Value Reference Range Interpretation Comments CALCIUM IONIZED (BEAKER) (test 1.32 mmol/L 1.12-1.27 H code = 698) PH, BLOOD (BEAKER) (test code = 7.29 1810) BLOOD GAS, [id number] 03:36:00 Test Item Value Reference Range Interpretation [...] 1819) 50.0 % HGB/HCT (H&H) - STAT [id number] 03:36:00 Test Item Value Reference Range Interpretation Comments HEMOGLOBIN (BEAKER) (test code = 12.5 g/dL 13.0-16.8 L 410) HEMATOCRIT (BEAKER) (test code = 37.0 % 40.0-50.0 L 411) OXYGEN SATURATION, [id number] 03:35:00 Test Item Value Reference Range Interpretation Comments O2 SATURATION (MEASURED) (BEAKER) 80.3 % (test code = 1455) GLUCOSE-STAT [id number] 03:34:00 Test Item Value Reference Range Interpretation Comments GLUCOSE RANDOM (BEAKER) (test code = 91 mg/dL 70-110 652) SODIUM NA-STAT [id number] 03:34:00 Test Item Value Reference Range Interpretation Comments SODIUM (BEAKER) (test code = 381) 137 meq/L 135-148 POTASSIUM-STAT [id number] 03:34:00 Test Item Value Reference Range Interpretation Comments POTASSIUM (BEAKER) (test code = 4.6 meq/L 3.6-5.5 379) BLOOD GAS, [id number] 03:01:00 Test Item Value Reference Range Interpretation [...] 1819) 50.0 % HGB/HCT (H&H) - STAT [id number] 03:01:00 Test Item Value Reference Range Interpretation Comments HEMOGLOBIN (BEAKER) (test code = 12.0 g/dL 13.0-16.8 L 410) HEMATOCRIT (BEAKER) (test code = 35.0 % 40.0-50.0 L 411) POTASSIUM-STAT [id number] 03:00:00 Test Item Value Reference Range Interpretation Comments POTASSIUM (BEAKER) (test code = 5.0 meq/L 3.6-5.5 379) GLUCOSE-STAT [id number] 03:00:00 Test Item Value Reference Range Interpretation Comments GLUCOSE RANDOM (BEAKER) (test code 102 mg/dL 70-110 = 652) SODIUM NA-STAT [id number] 03:00:00 Test Item Value Reference Range Interpretation Comments SODIUM (BEAKER) (test code = 381) 140 meq/L 135-148 LACTIC ACID, ARTERIAL, WHOLE [id number] 01:53:00 Test Item Value Reference Range Interpretation Comments LACTATE BLOOD 9.4 mmol/L 0.5-2.2 H Specimen sligh tly ARTERIAL (2) (BEAKER) hemoly zed (test code = 2874) Effective 01/04/2016: Units/Reference Range ChangeNew: 0.5-2.2 mmol/L Previous: 5-20 mg/dLGLUCOSE-STAT [id number] 01:27:00 Test Item Value Reference Range Interpretation Comments GLUCOSE RANDOM (BEAKER) (test code = 99 mg/dL 70-110 652) BLOOD GAS, [id number] 01:27:00 Test Item Value Reference Range Interpretation [...] 1819) 100.0 % HGB/HCT (H&H) - STAT [id number] 01:27:00 Test Item Value Reference Range Interpretation Comments HEMOGLOBIN (BEAKER) (test code = 12.7 g/dL 13.0-16.8 L 410) HEMATOCRIT (BEAKER) (test code = 37.0 % 40.0-50.0 L 411) SODIUM NA-STAT [id number] 01:26:00 Test Item Value Reference Range Interpretation Comments SODIUM (BEAKER) (test code = 381) 141 meq/L 135-148 POTASSIUM-STAT [id number] 01:26:00 Test Item Value Reference Range Interpretation Comments POTASSIUM (BEAKER) (test code = 3.6 meq/L 3.6-5.5 379) [id number] 00:38:00 Test Item Value Reference Range Interpretation Comments PARTIAL THROMBOPLASTIN TIME 47.4 seconds 22.5-36.0 H (BEAKER) (test code = 760) [id number] 00:35:00 Test Item Value Reference Range Interpretation Comments POTASSIUM (BEAKER) 3.5 meq/L 3.5-5.1 Specimen slightly (test code = 379) hemolyzed CALCIUM, [id number] 00:25:00 Test Item Value Reference Range Interpretation [...] = 1414) RAD, CHEST, 1 VIEW, NON [id number] 22:36:00Reason for exam:->s/p BronchoscopyFINAL REPORT CLINICAL INDICATION: Post bronchoscopy Comparison: Same date [id number] hours There is improved aeration of the right upper lobe. No pneumothorax is present. Hazy opacity in the right upper lobe and in the retrocardiac lower lungs may reflect atelectasis but pneumonitis should be excluded clinically. The cardiomediastinal contours are stable. Support lines are stable. Signed: Kellen Parra MDReport Verified Date/Time: 01/10/2018 22:36:29 Reading Location: [address] Reading Room C METABOLIC [id number] 22:01:00 Test Item Value Reference Range Interpretation [...] S NOT APPLICABLE FOR DIALYSIS PATIEN TS. [id number] 22:00:00 Test Item Value Reference Range Interpretation Comments MAGNESIUM (BEAKER) 2.4 mg/dL 1.6-2.6 Specimen slightly (test code = 627) hemolyzed [id number] 22:00:00 Test Item Value Reference Range Interpretation Comments PHOSPHORUS (BEAKER) 3.2 mg/dL 2.3-4.7 Specimen slightly (test code = 604) hemolyzed LACTIC ACID, ARTERIAL, WHOLE [id number] 21:57:00 Test Item Value Reference Range Interpretation Comments LACTATE BLOOD 10.2 mmol/L 0.5-2.2 H Specimen sligh tly ARTERIAL (2) (BEAKER) hemoly zed (test code = 2874) Effective 01/04/2016: Units/Reference Range ChangeNew: 0.5-2.2 mmol/L Previous: 5-20 mg/dLCBC W/PLT COUNT & AUTO [id number] 21:51:00 Test Item Value Reference Range Interpretation [...] 0-1 PERCENT (BEAKER) (test code = 2801) [id number] 21:49:00 Test Item Value Reference Range Interpretation Comments PARTIAL THROMBOPLASTIN TIME 41.2 seconds 22.5-36.0 H (BEAKER) (test code = 760) PROTHROMBIN [id number] 21:48:00 Test Item Value Reference Range Interpretation Comments PROTIME (BEAKER) (test code = 19.8 seconds 11.7-14.7 H 759) INR (BEAKER) (test code = 370) 1.7 <=5.9 RECOMMENDED COUMADIN/WARFARIN INR THERAPY RANGESSTANDARD DOSE: 2.0 - 3.0 Includes: PROPHYLAXIS forvenous thrombosis, systemic embolization; TREATMENT for venous thrombosis and/or pulmonary embolus.HIGH RISK: Target INR is 2.5-3.5 for patients with mechanical heart valves.[id number] 21:48:00 Test Item Value Reference Range Interpretation Comments FIBRINOGEN LEVEL (BEAKER) (test 221 mg/dl 225-434 L code = 658) CALCIUM, [id number] 21:33:00 Test Item Value Reference Range Interpretation Comments CALCIUM IONIZED (BEAKER) (test 1.54 mmol/L 1.12-1.27 H code = 698) PH, BLOOD (BEAKER) (test code = 7.33 1810) OXYGEN SATURATION, [id number] 21:33:00 Test Item Value Reference Range Interpretation Comments O2 SATURATION (MEASURED) (BEAKER) 67.1 % (test code = 1455) GLUCOSE-STAT [id number] 21:32:00 Test Item Value Reference Range Interpretation Comments GLUCOSE RANDOM (BEAKER) (test code = 98 mg/dL 70-110 652) SODIUM NA-STAT [id number] 21:32:00 Test Item Value Reference Range Interpretation Comments SODIUM (BEAKER) (test code = 381) 139 meq/L 135-148 POTASSIUM-STAT [id number] 21:32:00 Test Item Value Reference Range Interpretation Comments POTASSIUM (BEAKER) (test code = 3.6 meq/L 3.6-5.5 379) BLOOD GAS, [id number] 21:32:00 Test Item Value Reference Range Interpretation [...] 1819) 60.0 % HGB/HCT (H&H) - STAT [id number] 21:32:00 Test Item Value Reference Range Interpretation Comments HEMOGLOBIN (BEAKER) (test code = 8.2 g/dL 13.0-16.8 L 410) HEMATOCRIT (BEAKER) (test code = 24.0 % 40.0-50.0 L 411) RAD, CHEST, 1 VIEW, NON [id number] 21:32:00Reason for exam:->s/p cardiac surgeryShould this be [...] the level of the clavicles. Right IJ Mil[place]-Moni catheter terminatesin the distal right pulmonary artery. The soft tissues and osseous structures are intact. IMPRESSION: Postoperative changes with right upper lobe collapse, likely secondary to mucous plugging. Supporting lines and tubes as described above. Note position of the Mil[place]and-Moni catheter. Signed: Moiz Musa MDReport Verified Date/Time: 01/10/2018 21:32:31 Reading Location: [address] Consult Reading Room THROMBOELASTOGRAPH (TEG)2018-01-10 21:01:00 [...] 55.0-65.0 L (test code = 1413) CALCIUM, [id number] 20:42:00 Test Item Value Reference Range Interpretation Comments CALCIUM IONIZED (BEAKER) (test 1.41 mmol/L 1.12-1.27 H code = 698) PH, BLOOD (BEAKER) (test code = 7.41 1810) SODIUM NA-STAT [id number] 20:41:00 Test Item Value Reference Range Interpretation Comments SODIUM (BEAKER) (test code = 381) 138 meq/L 135-148 POTASSIUM-STAT [id number] 20:41:00 Test Item Value Reference Range Interpretation Comments POTASSIUM (BEAKER) (test code = 3.7 meq/L 3.6-5.5 379) BLOOD GAS, [id number] 20:41:00 Test Item Value Reference Range Interpretation [...] (test code = 1819) 100.0 % GLUCOSE-STAT [id number] 20:41:00 Test Item Value Reference Range Interpretation Comments GLUCOSE RANDOM (BEAKER) (test code 120 mg/dL 70-110 H = 652) HGB/HCT (H&H) - STAT [id number] 20:41:00 Test Item Value Reference Range Interpretation Comments HEMOGLOBIN (BEAKER) (test code = 7.8 g/dL 13.0-16.8 L 410) HEMATOCRIT (BEAKER) (test code = 23.0 % 40.0-50.0 L 411) [id number] 20:23:00 Test Item Value Reference Range Interpretation Comments FIBRINOGEN LEVEL ([facility]) (test 239 mg/dl 225-434 code = 658) [id number] 20:23:00 Test Item Value Reference Range Interpretation Comments PARTIAL THROMBOPLASTIN TIME 38.6 seconds 22.5-36.0 H ([facility]) (test code = 760) PROTHROMBIN [id number] 20:22:00 Test Item Value Reference Range Interpretation Comments PROTIME ([facility]) (test code = 21.6 seconds 11.7-14.7 H 759) INR ([facility]) (test code = 370) 1.9 <=5.9 RECOMMENDED COUMADIN/WARFARIN INR THERAPY RANGESSTANDARD DOSE: 2.0 - 3.0 Includes: PROPHYLAXIS forvenous thrombosis, systemic embolization; TREATMENT for venous thrombosis and/or pulmonary embolus.HIGH RISK: Target INR is 2.5-3.5 for patients with mechanical heart valves.[id number] 20:16:00 Test Item Value Reference Range Interpretation Comments ACTIVATED CLOTTING TIME 114 sec TEST ED AT [place] [address] ([facility]) (test code = [place] [address]) [id number] 20:16:00 Test Item Value Reference Range Interpretation Comments ACTIVATED CLOTTING TIME 499 sec TEST ED AT [place] [address] ([facility]) (test code = [place] [address]) [id number] 20:16:00 Test Item Value Reference Range Interpretation Comments ACTIVATED CLOTTING TIME 483 sec TEST ED AT [place] [address] ([facility]) (test code = [place] [address]) [id number] 20:16:00 Test Item Value Reference Range Interpretation Comments ACTIVATED CLOTTING TIME 538 sec TEST ED AT [place] [address] ([facility]) (test code = [place] [address]) [id number] 20:16:00 Test Item Value Reference Range Interpretation Comments ACTIVATED CLOTTING TIME 615 sec TEST ED AT [place] [address] ([facility]) (test code = [place] [address]) [id number] 20:16:00 Test Item Value Reference Range Interpretation Comments ACTIVATED CLOTTING TIME 692 sec TEST ED AT [place] [address] ([facility]) (test code = [place] [address]) [id number] 20:16:00 Test Item Value Reference Range Interpretation Comments ACTIVATED CLOTTING TIME 428 sec TEST ED AT [place] [address] ([facility]) (test code = [place] [address]) [address] [id number] 20:16:00 Test Item Value Reference Range Interpretation Comments ACTIVATED CLOTTING TIME 373 sec TEST ED AT [place] [address] ([facility]) (test code = [place] [address]) [id number] 20:16:00 Test Item Value Reference Range Interpretation Comments ACTIVATED CLOTTING TIME 455 sec TEST ED AT [place] [address] ([facility]) (test code = [place] [address]) [address] [id number] 20:16:00 Test Item Value Reference Range Interpretation Comments ACTIVATED CLOTTING TIME 494 sec TEST ED AT [place] [address] ([facility]) (test code = [place] [address]) [id number] 20:16:00 Test Item Value Reference Range Interpretation Comments ACTIVATED CLOTTING TIME 527 sec TEST ED AT [place] [address] ([facility]) (test code = [place] [address]) [address] [id number] 20:16:00 Test Item Value Reference Range Interpretation Comments ACTIVATED CLOTTING TIME 610 sec TEST ED AT [place] [address] ([facility]) (test code = [place] [address]) [id number] 20:16:00 Test Item Value Reference Range Interpretation Comments ACTIVATED CLOTTING TIME 576 sec TEST ED AT [place] [address] ([facility]) (test code = [place] [address]) [id number] 20:16:00 Test Item Value Reference Range Interpretation Comments ACTIVATED CLOTTING TIME 384 sec TEST ED AT [place] [address] ([facility]) (test code = [place] [address]) [address] PLATELET [id number] 20:08:00 Test Item Value Reference Range Interpretation Comments PLATELET COUNT ([facility]) (test code 47 K/CU MM 150-450 L [...] 0.0-5.0 (BEAKER) (test code = 1414) CALCIUM, [id number] 19:59:00 Test Item Value Reference Range Interpretation Comments CALCIUM IONIZED (BEAKER) (test 1.39 mmol/L 1.12-1.27 H code = 698) PH, BLOOD (BEAKER) (test code = 7.37 1810) BLOOD GAS, [id number] 19:58:00 Test Item Value Reference Range Interpretation [...] (test code = 1819) 100.0 % GLUCOSE-STAT [id number] 19:58:00 Test Item Value Reference Range Interpretation Comments GLUCOSE RANDOM (BEAKER) (test code 143 mg/dL 70-110 H = 652) HGB/HCT (H&H) - STAT [id number] 19:58:00 Test Item Value Reference Range Interpretation Comments HEMOGLOBIN (BEAKER) (test code = 8.7 g/dL 13.0-16.8 L 410) HEMATOCRIT (BEAKER) (test code = 26.0 % 40.0-50.0 L 411) SODIUM NA-STAT [id number] 19:57:00 Test Item Value Reference Range Interpretation Comments SODIUM (BEAKER) (test code = 381) 140 meq/L 135-148 POTASSIUM-STAT [id number] 19:57:00 Test Item Value Reference Range Interpretation Comments POTASSIUM (BEAKER) (test code = 3.9 meq/L 3.6-5.5 379) [id number] 19:29:00 Test Item Value Reference Range Interpretation Comments PARTIAL THROMBOPLASTIN TIME > seconds 22.5-36.0 HH (BEAKER) (test code = 760) [id number] 19:16:00 Test Item Value Reference Range Interpretation Comments FIBRINOGEN LEVEL (BEAKER) (test 271 mg/dl 225-434 code = 658) PROTHROMBIN [id number] 19:15:00 Test Item Value Reference Range Interpretation Comments PROTIME (BEAKER) (test code = 21.3 seconds 11.7-14.7 H 759) INR (BEAKER) (test code = 370) 1.8 <=5.9 RECOMMENDED COUMADIN/WARFARIN INR THERAPY RANGESSTANDARD DOSE: 2.0 - 3.0 Includes: PROPHYLAXIS forvenous thrombosis, systemic embolization; TREATMENT for venous thrombosis and/or pulmonary embolus.HIGH RISK: Target INR is 2.5-3.5 for patients with mechanical heart valves.PLATELET [id number] 19:06:00 Test Item Value Reference Range Interpretation Comments PLATELET COUNT (BEAKER) (test code 54 K/CU MM 150-450 L = 756) BLOOD GAS, [id number] 18:49:00 Test Item Value Reference Range Interpretation [...] 1819) 100.0 % HGB/HCT (H&H) - STAT [id number] 18:44:00 Test Item Value Reference Range Interpretation Comments HEMOGLOBIN (BEAKER) (test code = 10.1 g/dL 13.0-16.8 L 410) HEMATOCRIT (BEAKER) (test code = 30.0 % 40.0-50.0 L 411) SODIUM NA-STAT [id number] 18:43:00 Test Item Value Reference Range Interpretation Comments SODIUM (BEAKER) (test code = 381) 137 meq/L 135-148 POTASSIUM-STAT [id number] 18:43:00 Test Item Value Reference Range Interpretation Comments POTASSIUM (BEAKER) (test code = 5.0 meq/L 3.6-5.5 379) GLUCOSE-STAT [id number] 18:43:00 Test Item Value Reference Range Interpretation Comments GLUCOSE RANDOM (BEAKER) (test code 187 mg/dL 70-110 H = 652) SODIUM NA-STAT [id number] 18:22:00 Test Item Value Reference Range Interpretation Comments SODIUM (BEAKER) (test code = 381) 140 meq/L 135-148 POTASSIUM-STAT [id number] 18:22:00 Test Item Value Reference Range Interpretation Comments POTASSIUM (BEAKER) (test code = 4.7 meq/L 3.6-5.5 379) BLOOD GAS, [id number] 18:22:00 Test Item Value Reference Range Interpretation [...] (test code = 1819) 60.0 % GLUCOSE-STAT [id number] 18:22:00 Test Item Value Reference Range Interpretation Comments GLUCOSE RANDOM (BEAKER) (test code 209 mg/dL 70-110 H = 652) HGB/HCT (H&H) - STAT [id number] 18:22:00 Test Item Value Reference Range Interpretation Comments HEMOGLOBIN (BEAKER) (test code = 10.2 g/dL 13.0-16.8 L 410) HEMATOCRIT (BEAKER) (test code = 30.0 % 40.0-50.0 L 411) BLOOD GAS, [id number] 17:57:00 Test Item Value Reference Range Interpretation [...] (test code = 1819) 65.0 % GLUCOSE-STAT [id number] 17:57:00 Test Item Value Reference Range Interpretation Comments GLUCOSE RANDOM (BEAKER) (test code 198 mg/dL 70-110 H = 652) HGB/HCT (H&H) - STAT [id number] 17:57:00 Test Item Value Reference Range Interpretation Comments HEMOGLOBIN (BEAKER) (test code = 10.3 g/dL 13.0-16.8 L 410) HEMATOCRIT (BEAKER) (test code = 30.0 % 40.0-50.0 L 411) SODIUM NA-STAT [id number] 17:56:00 Test Item Value Reference Range Interpretation Comments SODIUM (BEAKER) (test code = 381) 138 meq/L 135-148 POTASSIUM-STAT [id number] 17:56:00 Test Item Value Reference Range Interpretation Comments POTASSIUM (BEAKER) (test code = 4.7 meq/L 3.6-5.5 379) BLOOD GAS, [id number] 17:28:00 Test Item Value Reference Range Interpretation [...] (test code = 1819) 65.0 % GLUCOSE-STAT [id number] 17:28:00 Test Item Value Reference Range Interpretation Comments GLUCOSE RANDOM (BEAKER) (test code 223 mg/dL 70-110 H = 652) HGB/HCT (H&H) - STAT [id number] 17:28:00 Test Item Value Reference Range Interpretation Comments HEMOGLOBIN (BEAKER) (test code = 10.1 g/dL 13.0-16.8 L 410) HEMATOCRIT (BEAKER) (test code = 30.0 % 40.0-50.0 L 411) SODIUM NA-STAT [id number] 17:27:00 Test Item Value Reference Range Interpretation Comments SODIUM (BEAKER) (test code = 381) 140 meq/L 135-148 POTASSIUM-STAT [id number] 17:27:00 Test Item Value Reference Range Interpretation [...] code = 1414) HGB/HCT (H&H) - STAT [id number] 17:01:00 Test Item Value Reference Range Interpretation Comments HEMOGLOBIN (BEAKER) (test code = 10.1 g/dL 13.0-16.8 L 410) HEMATOCRIT (BEAKER) (test code = 30.0 % 40.0-50.0 L 411) BLOOD GAS, [id number] 17:00:00 Test Item Value Reference Range Interpretation [...] (test code = 1819) 65.0 % GLUCOSE-STAT [id number] 17:00:00 Test Item Value Reference Range Interpretation Comments GLUCOSE RANDOM (BEAKER) (test code 243 mg/dL 70-110 H = 652) SODIUM NA-STAT [id number] 16:59:00 Test Item Value Reference Range Interpretation Comments SODIUM (BEAKER) (test code = 381) 139 meq/L 135-148 POTASSIUM-STAT [id number] 16:59:00 Test Item Value Reference Range Interpretation Comments POTASSIUM (BEAKER) (test code = 4.6 meq/L 3.6-5.5 379) [id number] 16:47:00 Test Item Value Reference Range Interpretation Comments PARTIAL THROMBOPLASTIN TIME > seconds 22.5-36.0 HH (BEAKER) (test code = 760) BLOOD GAS, [id number] 16:18:00 Test Item Value Reference Range Interpretation [...] (test code = 1819) 65.0 % GLUCOSE-STAT [id number] 16:18:00 Test Item Value Reference Range Interpretation Comments GLUCOSE RANDOM (BEAKER) (test code 279 mg/dL 70-110 H = 652) HGB/HCT (H&H) - STAT [id number] 16:18:00 Test Item Value Reference Range Interpretation Comments HEMOGLOBIN (BEAKER) (test code = 7.0 g/dL 13.0-16.8 L 410) HEMATOCRIT (BEAKER) (test code = 21.0 % 40.0-50.0 L 411) SODIUM NA-STAT [id number] 16:17:00 Test Item Value Reference Range Interpretation Comments SODIUM (BEAKER) (test code = 381) 137 meq/L 135-148 POTASSIUM-STAT [id number] 16:17:00 Test Item Value Reference Range Interpretation Comments POTASSIUM (BEAKER) (test code = 4.6 meq/L 3.6-5.5 379) [id number] 16:15:00 Test Item Value Reference Range Interpretation Comments FIBRINOGEN LEVEL (BEAKER) (test 255 mg/dl 225-434 code = 658) PROTHROMBIN [id number] 16:14:00 Test Item Value Reference Range Interpretation Comments PROTIME (BEAKER) (test code = 20.2 seconds 11.7-14.7 H 759) INR (BEAKER) (test code = 370) 1.7 <=5.9 RECOMMENDED COUMADIN/WARFARIN INR THERAPY RANGESSTANDARD DOSE: 2.0 - 3.0 Includes: PROPHYLAXIS forvenous thrombosis, systemic embolization; TREATMENT for venous thrombosis and/or pulmonary embolus.HIGH RISK: Target INR is 2.5-3.5 for patients with mechanical heart valves.PLATELET [id number] 16:02:00 Test Item Value Reference Range Interpretation Comments PLATELET COUNT (BEAKER) (test code 57 K/CU MM 150-450 L = 756) CALCIUM, [id number] 15:51:00 Test Item Value Reference Range Interpretation Comments CALCIUM IONIZED (BEAKER) (test 0.82 mmol/L 1.12-1.27 L code = 698) PH, BLOOD (BEAKER) (test code = 7.45 1810) BLOOD GAS, [id number] 15:51:00 Test Item Value Reference Range Interpretation [...] (test code = 1819) 100.0 % GLUCOSE-STAT [id number] 15:51:00 Test Item Value Reference Range Interpretation Comments GLUCOSE RANDOM (BEAKER) (test code 190 mg/dL 70-110 H = 652) HGB/HCT (H&H) - STAT [id number] 15:51:00 Test Item Value Reference Range Interpretation Comments HEMOGLOBIN (BEAKER) (test code = 7.6 g/dL 13.0-16.8 L 410) HEMATOCRIT (BEAKER) (test code = 22.0 % 40.0-50.0 L 411) POTASSIUM-STAT [id number] 15:51:00 Test Item Value Reference Range Interpretation Comments POTASSIUM (BEAKER) (test code = 5.6 meq/L 3.6-5.5 H 379) SODIUM NA-STAT [id number] 15:50:00 Test Item Value Reference Range Interpretation Comments SODIUM (BEAKER) (test code = 381) 139 meq/L 135-148 BLOOD GAS, [id number] 15:43:00 Test Item Value Reference Range Interpretation [...] (test code = 1819) 75.0 % GLUCOSE-STAT [id number] 15:43:00 Test Item Value Reference Range Interpretation Comments GLUCOSE RANDOM (BEAKER) (test code 189 mg/dL 70-110 H = 652) HGB/HCT (H&H) - STAT [id number] 15:43:00 Test Item Value Reference Range Interpretation Comments HEMOGLOBIN (BEAKER) (test code = 8.0 g/dL 13.0-16.8 L 410) HEMATOCRIT (BEAKER) (test code = 24.0 % 40.0-50.0 L 411) POTASSIUM-STAT [id number] 15:43:00 Test Item Value Reference Range Interpretation Comments POTASSIUM (BEAKER) (test code = 5.7 meq/L 3.6-5.5 H 379) SODIUM NA-STAT [id number] 15:42:00 Test Item Value Reference Range Interpretation Comments SODIUM (BEAKER) (test code = 381) 136 meq/L 135-148 SODIUM NA-STAT [id number] 15:06:00 Test Item Value Reference Range Interpretation Comments SODIUM (BEAKER) (test code = 381) 139 meq/L 135-148 BLOOD GAS, [id number] 15:06:00 Test Item Value Reference Range Interpretation [...] (test code = 1819) 60.0 % POTASSIUM-STAT [id number] 15:06:00 Test Item Value Reference Range Interpretation Comments POTASSIUM (BEAKER) (test code = 5.8 meq/L 3.6-5.5 H 379) GLUCOSE-STAT [id number] 15:06:00 Test Item Value Reference Range Interpretation Comments GLUCOSE RANDOM (BEAKER) (test code 192 mg/dL 70-110 H = 652) HGB/HCT (H&H) - STAT [id number] 15:06:00 Test Item Value Reference Range Interpretation Comments HEMOGLOBIN (BEAKER) (test code = 8.2 g/dL 13.0-16.8 L 410) HEMATOCRIT (BEAKER) (test code = 24.0 % 40.0-50.0 L 411) POTASSIUM-STAT [id number] 14:41:00 Test Item Value Reference Range Interpretation Comments POTASSIUM (BEAKER) (test code = 5.2 meq/L 3.6-5.5 379) BLOOD GAS, [id number] 14:41:00 Test Item Value Reference Range Interpretation [...] code = 1819) 60.0 % SODIUM NA-STAT [id number] 14:41:00 Test Item Value Reference Range Interpretation Comments SODIUM (BEAKER) (test code = 381) 134 meq/L 135-148 L GLUCOSE-STAT [id number] 14:41:00 Test Item Value Reference Range Interpretation Comments GLUCOSE RANDOM (BEAKER) (test code 195 mg/dL 70-110 H = 652) HGB/HCT (H&H) - STAT [id number] 14:41:00 Test Item Value Reference Range Interpretation Comments HEMOGLOBIN (BEAKER) (test code = 8.2 g/dL 13.0-16.8 L 410) HEMATOCRIT (BEAKER) (test code = 24.0 % 40.0-50.0 L 411) BLOOD GAS, [id number] 14:10:00 Test Item Value Reference Range Interpretation [...] (test code = 1819) 60.0 % GLUCOSE-STAT [id number] 14:10:00 Test Item Value Reference Range Interpretation Comments GLUCOSE RANDOM (BEAKER) (test code 177 mg/dL 70-110 H = 652) HGB/HCT (H&H) - STAT [id number] 14:10:00 Test Item Value Reference Range Interpretation Comments HEMOGLOBIN (BEAKER) (test code = 8.5 g/dL 13.0-16.8 L 410) HEMATOCRIT (BEAKER) (test code = 25.0 % 40.0-50.0 L 411) SODIUM NA-STAT [id number] 14:09:00 Test Item Value Reference Range Interpretation Comments SODIUM (BEAKER) (test code = 381) 136 meq/L 135-148 POTASSIUM-STAT [id number] 14:09:00 Test Item Value Reference Range Interpretation Comments POTASSIUM (BEAKER) (test code = 5.0 meq/L 3.6-5.5 379) POTASSIUM-STAT [id number] 13:39:00 Test Item Value Reference Range Interpretation Comments POTASSIUM (BEAKER) (test code = 5.0 meq/L 3.6-5.5 379) BLOOD GAS, [id number] 13:39:00 Test Item Value Reference Range Interpretation [...] (test code = 1819) 60.0 % GLUCOSE-STAT [id number] 13:39:00 Test Item Value Reference Range Interpretation Comments GLUCOSE RANDOM (BEAKER) (test code 179 mg/dL 70-110 H = 652) HGB/HCT (H&H) - STAT [id number] 13:39:00 Test Item Value Reference Range Interpretation Comments HEMOGLOBIN (BEAKER) (test code = 8.1 g/dL 13.0-16.8 L 410) HEMATOCRIT (BEAKER) (test code = 24.0 % 40.0-50.0 L 411) SODIUM NA-STAT [id number] 13:39:00 Test Item Value Reference Range Interpretation Comments SODIUM (BEAKER) (test code = 381) 136 meq/L 135-148 CALCIUM, [id number] 12:31:00 Test Item Value Reference Range Interpretation Comments CALCIUM IONIZED (BEAKER) (test 1.09 mmol/L 1.12-1.27 L code = 698) PH, BLOOD (BEAKER) (test code = 7.45 1810) GLUCOSE-STAT [id number] 12:30:00 Test Item Value Reference Range Interpretation Comments GLUCOSE RANDOM (BEAKER) (test code = 93 mg/dL 70-110 652) SODIUM NA-STAT [id number] 12:30:00 Test Item Value Reference Range Interpretation Comments SODIUM (BEAKER) (test code = 381) 140 meq/L 135-148 POTASSIUM-STAT [id number] 12:30:00 Test Item Value Reference Range Interpretation Comments POTASSIUM (BEAKER) (test code = 3.9 meq/L 3.6-5.5 379) BLOOD GAS, [id number] 12:30:00 Test Item Value Reference Range Interpretation [...] 1819) 100.0 % HGB/HCT (H&H) - STAT [id number] 12:30:00 Test Item Value Reference Range Interpretation Comments HEMOGLOBIN (BEAKER) (test code = 9.3 g/dL 13.0-16.8 L 410) HEMATOCRIT (BEAKER) (test code = 27.0 % 40.0-50.0 L 411) HEMOGLOBIN [id number] 10:02:00 Test Item Value Reference Range Interpretation Comments HEMOGLOBIN A1C (BEAKER) (test code = 4.4 % 4.3-6.1 368) POCT-GLUCOSE [id number] 09:52:00 Test Item Value Reference Range Interpretation Comments POC-GLUCOSE METER 115 mg/dL 70-110 H TESTED AT [facility] 67[address] (BEAKER) (test code = [place]) [address] PROTHROMBIN [id number] 02:41:00 Test Item Value Reference Range Interpretation Comments PROTIME (BEAKER) (test code = 14.9 seconds 11.7-14.7 H 759) INR (BEAKER) (test code = 370) 1.2 <=5.9 RECOMMENDED COUMADIN/WARFARIN INR THERAPY RANGESSTANDARD DOSE: 2.0 - 3.0 Includes: PROPHYLAXIS forvenous thrombosis, systemic embolization; TREATMENT for venous thrombosis and/or pulmonary embolus.HIGH RISK: Target INR is 2.5-3.5 for patients with mechanical heart valves.BASIC METABOLIC [id number] 00:29:00 Test Item Value Reference Range Interpretation [...] S NOT APPLICABLE FOR DIALYSIS PATIEN TS. [id number] 00:22:00 Test Item Value Reference Range Interpretation Comments MAGNESIUM (BEAKER) 2.5 mg/dL 1.6-2.6 Specimen slightly (test code = 627) hemolyzed [id number] 00:14:00 Test Item Value Reference Range Interpretation Comments PARTIAL THROMBOPLASTIN TIME 38.6 seconds 22.5-36.0 H (BEAKER) (test code = 760) CBC W/PLT COUNT & AUTO [id number] 00:07:00 Test Item Value Reference Range Interpretation [...] 0-1 PERCENT (BEAKER) (test code = 2801) [id number] 17:03:00 Test Item Value Reference Range Interpretation Comments THYROID STIMULATING HORMONE 1.30 uIU/mL 0.35-4.94 (BEAKER) (test code = 772) HEPATIC FUNCTION [id number] 16:43:00 Test Item Value Reference Range Interpretation [...] 69 U/L 6-55 H 347) BASIC METABOLIC [id number] 15:47:00 Test Item Value Reference Range Interpretation [...] S NOT APPLICABLE FOR DIALYSIS PATIEN TS. [id number] 14:57:00 Test Item Value Reference Range Interpretation Comments PARTIAL THROMBOPLASTIN TIME 82.9 seconds 22.5-36.0 H (BEAKER) (test code = 760) CBC W/PLT COUNT & AUTO [id number] 14:48:00 Test Item Value Reference Range Interpretation [...] PERCENT (BEAKER) (test code = 2801) POCT-GLUCOSE [id number] 11:13:00 Test Item Value Reference Range Interpretation Comments POC-GLUCOSE METER 207 mg/dL 70-110 H TESTED AT [place] [address] ([facility]) (test code = [place]) [address] POCT-GLUCOSE [id number] 08:08:00 Test Item Value Reference Range Interpretation Comments POC-GLUCOSE METER 124 mg/dL 70-110 H TESTED AT [place] [id number] ([facility]) (test code = [place]) [address] [id number] 06:51:00 Test Item Value Reference Range Interpretation Comments PARTIAL THROMBOPLASTIN TIME 54.6 seconds 22.5-36.0 H (BEAKER) (test code = 760) HEPATITIS B SURFACE [id number] 00:28:00 Test Item Value Reference Range Interpretation Comments HEPATITIS B SURFACE ANTIGEN (2) Nonreactive Nonreactive (BEAKER) (test code = 2585) [id number] 00:06:00 Test Item Value Reference Range Interpretation Comments PHOSPHORUS (BEAKER) (test code = 3.2 mg/dL 2.3-4.7 604) [id number] 00:03:00 Test Item Value Reference Range Interpretation Comments PARTIAL THROMBOPLASTIN TIME 36.0 seconds 22.5-36.0 (BEAKER) (test code = 760) CBC W/PLT COUNT & AUTO [id number] 23:45:00 Test Item Value Reference Range Interpretation [...] PERCENT (BEAKER) (test code = 2801) POCT-GLUCOSE [id number] 17:39:00 Test Item Value Reference Range Interpretation Comments POC-GLUCOSE METER 116 mg/dL 70-110 H TESTED AT [facility] [address] ([facility]) (test code = [place]) [address] [id number] 15:35:00 Test Item Value Reference Range Interpretation Comments THYROID STIMULATING HORMONE 1.39 uIU/mL 0.35-4.94 (AKER) (test code = 772) [id number] 15:06:00 Test Item Value Reference Range Interpretation Comments PARTIAL THROMBOPLASTIN TIME 31.0 seconds 22.5-36.0 (BEAKER) (test code = 760) Prior to initiating heparinPROTHROMBIN [id number] 15:05:00 Test Item Value Reference Range Interpretation Comments PROTIME (BEAKER) (test code = 14.4 seconds 11.7-14.7 759) INR (AKER) (test code = 370) 1.1 <=5.9 RECOMMENDED COUMADIN/WARFARIN INR THERAPY RANGESSTANDARD DOSE: 2.0 - 3.0 Includes: PROPHYLAXIS forvenous thrombosis, systemic embolization; TREATMENT for venous thrombosis and/or pulmonary embolus.HIGH RISK: Target INR is 2.5-3.5 for patients with mechanical heart valves.PLATELET [id number] 14:52:00 Test Item Value Reference Range Interpretation Comments PLATELET COUNT (BEAKER) (test 109 K/CU MM 150-450 L code = 756) POCT-GLUCOSE [id number] 12:00:00 Test Item Value Reference Range Interpretation Comments POC-GLUCOSE METER 186 mg/dL 70-110 H TESTED AT [facility] [address] (JARROD) (test code = [place]) [address] RAD, CHEST, 1 VIEW, NON [id number] 11:43:00Reason for exam:->SOB, known severe MRShould this be performed at the bedside?->YesFINAL REPORT Chest one view AP 01/08/2018 11:42 AM CLINICAL INDICATION: SOB, kno wn severe MR COMPARISON: 12/02/2017 IMPRESSION: Cardiomediastinal contours are stable. There is mild pulmonary edema. There are trace bilateral pleural effusions. Signed: Yevgeniy Anderson Verified Date/Time: 01/08/2018 11:43:52 Reading Location: [facility] Radiology Reading Room Electronic ally signed by: YEVGENIY ANDERSON M.D. on 01/08/2018 11:43 AMRAPID CK-MB 2017-12-02 10:04:00 Test Item Value Reference Range Interpretation Comments RAPID CKMB ([facility]) (test code = 1.5 ng/mL 0.0-4.3 1482) RAPID TROPONIN [id number] 10:04:00 Test Item Value Reference Range Interpretation Comments RAPID TROPONIN I (GAELAKER) (test code < ng/mL <0.05 = 1483) RAD, CHEST, 2 [id number] 10:00:00Reason for exam:->Chest PainFINAL REPORT Chest two views Discussion: Heart size upper limits of normal. Bilateral interstitial edema with small bilateral effusions. No pneumothorax. Bones and soft tissues unremarkable. Signed: Rhea Colindres Verified Date/Time: 12/02/2017 10:00:39 Reading Location:[facility] Radiology Reading Room B-TYPE NATRIURETIC FACTOR (BNP)2017-12-02 09:56:00 Test Item Value Reference Range Interpretation Comments B-TYPE NATRIURETIC PEPTIDE 1990 pg/mL 0-100 H (BEAKER) (test code = 700) BASIC METABOLIC [id number] 09:52:00 Test Item Value Reference Range Interpretation [...] S NOT APPLICABLE FOR DIALYSIS PATIEN TS. [id number] 09:51:00 Test Item Value Reference Range Interpretation Comments MAGNESIUM (BEAKER) (test code = 1.7 mg/dL 1.5-3.0 627) CBC W/PLT COUNT & AUTO [id number] 09:50:00 Test Item Value Reference Range Interpretation [...] (BEAKER) (test code = 417) CD4/CD8 Ratio [id number] 08:04:00 Test Item Value Reference Range Interpretation Comments Absolute CD 4 Baggs (test code 188 /uL 359-1519 L = 770056) % CD 4 Pos. Lymph. (test code = 37.6 % 30.8-58.5 N 540372) Abs. CD 8 Suppressor (test code 183 /uL 109-897 N = 687653) % CD 8 Pos. Lymph. (test code = 36.6 % 12.0-35.5 H 733722) CD4/CD8 Ratio (test code = 1.03 0.92-3.72 N 395828) WBC (test code = 670912) 5.0 x10E3/uL 3.4-10.8 N RBC (test code = 922715) 3.00 x10E6/uL 4.14-5.80 L Hemoglobin (test code = 206898) 9.6 g/dL 13.0-17.7 L Hematocrit (test code = 296450) 27.6 % 37.5-51.0 L MCV (test code = 061317) 92 fL 79-97 N MCH (test code = 743434) 32.0 pg 26.6-33.0 N MCHC (test code = 998122) 34.8 g/dL 31.5-35.7 N RDW (test code = 917097) 15.5 % 12.3-15.4 H Platelets (test code = 176257) 113 x10E3/uL 150-379 L Neutrophils (test code = 84 % Not Estab. N 987483) Lymphs (test code = 702600) 9 % Not Estab. N Monocytes (test code = 902972) 6 % Not Estab. N Eos (test code = 882579) 1 % Not Estab. N Basos (test code = 303975) 0 % Not Estab. N Neutrophils (Absolute) (test 4.2 x10E3/uL 1.4-7.0 N code = 619583) Lymphs (Absolute) (test code = 0.5 x10E3/uL 0.7-3.1 L 048689) Monocytes(Absolute) (test code 0.3 x10E3/uL 0.1-0.9 N = 900216) Eos (Absolute) (test code = 0.0 x10E3/uL 0.0-0.4 N 557322) Baso (Absolute) (test code = 0.0 x10E3/uL 0.0-0.2 N 259263) Immature Granulocytes (test 0 % Not Estab. N code = 788108) Immature Grans (Abs) (test code 0.0 x10E3/uL 0.0-0.1 N = 056905) Culture, Blood [id number] 08:42:00Specimen: BloodCollected: 11/19/2017 00:21 Status: Final Last Updated: 11/24/2017 08:42 Culture Result (Final) (Final) No Growth After 5 DaysCulture, Blood [id number] 08:42:00 Specimen: BloodCollected: 11/18/2017 20:30 Status: Final Last Updated: 11/24/2017 08:42 Culture Result (Final) (Final) [facility], [id number] 11:51:00 Test Item Value Reference Range Interpretation Comments POC Glucose (test 148 mg/dL 70-115 H Notify RN or MDIf you code = POCGLUC) consider you r patient critically ill, the Madeline Accu-Chek InformII metershould not be used for Glucose determinations. Draw a venous Glucose and send to the Main Lab for Analysis. CK [id number] 07:42:00 Test Item Value Reference Range Interpretation Comments CK (test code = CK) na U/L 39-308 N CKMB (test code = CKMB) 4.0 ng/mL 0.0-4.9 N CKMB% (test code = CKMBP) 0.0 % 0.0-3.4 N [id number] 07:39:00 Test Item Value Reference Range Interpretation Comments NT ProBnp (test code = PBNP) >04142 pg/mL 0-124 H Troponin [id number] 07:18:00 Test Item Value Reference Range Interpretation Comments Troponin T (test code = MADHAV) 0.103 ng/mL 0.000-0.090 H Lactate [id number] 07:18:00 Test Item Value Reference Range Interpretation Comments LDH (test code = LDH) 271 U/L 135-225 H POC Glucose, [id number] 06:50:00 Test Item Value Reference Range Interpretation Comments POC Glucose (test 154 mg/dL 70-115 H Notify RN or MDIf you code = POCGLUC) consider you r patient critically ill, the Madeline Accu-Chek InformII metershould not be used for Glucose determinations. Draw a venous Glucose and send to the Main Lab for Analysis. CK [id number] 01:08:00 Test Item Value Reference Range Interpretation Comments CK (test code = CK) na U/L 39-308 N CKMB (test code = CKMB) 3.6 ng/mL 0.0-4.9 N CKMB% (test code = CKMBP) 0.0 % 0.0-3.4 N Troponin [id number] 01:08:00 Test Item Value Reference Range Interpretation Comments Troponin T (test code = MADHAV) 0.106 ng/mL 0.000-0.090 H XR CHEST 1 [id number] 21:02:01CLINICAL INFORMATION: Vascular congestion.Dictation Location: R 16Comparison: 11/18/2017 showed perihilar and lower lobe opacities. Technique: Portable AP 1951 hoursFINDINGS: Monitoring electrodes overlie the chest wall. Cardiomegaly withincreasing central vascular interstitial prominence with bibasilaropacities and effusions. No interval bone changes.IMPRESSION: Changes could indicate worsening cardiac decompensation orfluid overload.POC Glucose, [id number] 20:15:00 Test Item Value Reference Range Interpretation Comments POC Glucose (test 139 mg/dL 70-115 H If you con registered nurse cardiac your code = POCGLUC) patient crit ically ill, the Madeline Accu- Chek InformII meters hould not be used for Glu cose determinations. Draw a venous Glucose and send to the Main Lab for Analysis. POC Glucose, [id number] 16:52:00 Test Item Value Reference Range Interpretation Comments POC Glucose (test 123 mg/dL 70-115 H If you con registered nurse cardiac your code = POCGLUC) patient crit ically ill, the Madeline Accu- Chek InformII meters hould not be used for Glu cose determinations. Draw a venous Glucose and send to the Main Lab for Analysis. POC Glucose, [id number] 12:04:00 Test Item Value Reference Range Interpretation Comments POC Glucose (test 140 mg/dL 70-115 H If you con registered nurse cardiac your code = POCGLUC) patient crit ically ill, the Madeline Accu- Chek InformII meters hould not be used for Glu cose determinations. Draw a venous Glucose and send to the Main Lab for Analysis. POC Glucose, [id number] 08:01:00 Test Item Value Reference Range Interpretation Comments POC Glucose (test 126 mg/dL 70-115 H If you con registered nurse cardiac your code = POCGLUC) patient crit ically ill, the Madeline Accu- Chek InformII meters hould not be used for Glu cose determinations. Draw a venous Glucose and send to the Main Lab for Analysis. CK [id number] 06:03:00 Test Item Value Reference Range Interpretation Comments CK (test code = CK) na U/L 39-308 N CKMB (test code = CKMB) 2.8 ng/mL 0.0-4.9 N CKMB% (test code = CKMBP) 0.0 % 0.0-3.4 N Basic Metabolic [id number] 05:51:00 Test Item Value Reference Range Interpretation [...] the National Kidney Foundation,http ://nkd ep.nih.gov Magnesium, [id number] 05:51:00 Test Item Value Reference Range Interpretation Comments Magnesium (test code = MG) 1.9 mg/dL 1.7-2.5 N [id number] 05:51:00 Test Item Value Reference Range Interpretation Comments Phosphorus (test code = PO4) 3.8 mg/dL 2.70-4.50 N [id number] 05:51:00 Test Item Value Reference Range Interpretation Comments NT ProBnp (test code = PBNP) >59491 pg/mL 0-124 H Troponin [id number] 05:51:00 Test Item Value Reference Range Interpretation Comments Troponin T (test code = MADHAV) 0.126 ng/mL 0.000-0.090 H CBC with [id number] 05:34:00 Test Item Value Reference Range Interpretation [...] code = ALYMPH) 0.4 K/cumm 0.5-4.6 L [place] Abs (test code = AMONO) 0.6 K/cumm 0.0-1.2 N Eos Abs (test code = AEOS) 0.13 K/cumm 0.00-0.74 N Baso Abs (test code = ABASO) 0.0 K/cumm 0.00-0.21 N CK [id number] 18:39:00 Test Item Value Reference Range Interpretation Comments CK (test code = CK) HIDE U/L 39-308 N CKMB (test code = CKMB) 3.2 ng/mL 0.0-4.9 N CKMB% (test code = CKMBP) HIDE % 0.0-3.4 N Troponin [id number] 18:39:00 Test Item Value Reference Range Interpretation Comments Troponin T (test code = MADHAV) 0.126 ng/mL 0.000-0.090 H Hep B Surface [id number] 18:39:00 Test Item Value Reference Range Interpretation Comments Hep Bs Ag (test code = HBSAG) Nonreactive Non-Reactive A POC Glucose, [id number] 16:47:00 Test Item Value Reference Range Interpretation Comments POC Glucose (test 143 mg/dL 70-115 H If you con registered nurse cardiac your code = POCGLUC) patient crit ically ill, the Madeline Accu- Chek InformII meters hould not be used for Glu cose determinations. Draw a venous Glucose and send to the Main Lab for Analysis. XR CHEST 1 [id number] 08:18:18EXAM: Portable AP chest x-rayLOCATION: R16 INDICATION: CoughCOMPARISON: 11/07/2017FINDINGS:The cardiacsilhouette is stable enlargement. There are increasinginterstitial opacities, most evident in the per ihilar regions and lowerlobes. There is blunting of the costophrenic angles bilaterally. Thereis no discernible pneumothorax.IMPRESSION:Increasing perihilar and bilateral lower lobe opacities compared to theprior exam dated 11/07/2017. Findings may represent pulmonary edema orpneumonia in the appropriate clinical setting.Comprehensive Metabolic [id number] 08:05:00 Test Item Value Reference Range Interpretation [...] the National Kidney Foundation,http ://nkd ep.nih.gov CK [id number] 08:05:00 Test Item Value Reference Range Interpretation Comments CK (test code = CK) 149 U/L 39-308 N Troponin [id number] 08:02:00 Test Item Value Reference Range Interpretation Comments Troponin T (test code = MADHAV) 0.114 ng/mL 0.000-0.090 H [id number] 08:02:00 Test Item Value Reference Range Interpretation Comments NT ProBnp (test code = PBNP) >51753 pg/mL 0-124 H CBC with [id number] 07:53:00 Test Item Value Reference Range Interpretation [...] code = ALYMPH) 0.9 K/cumm 0.5-4.6 N [place] Abs (test code = AMONO) 0.4 K/cumm 0.0-1.2 N Eos Abs (test code = AEOS) 0.11 K/cumm 0.00-0.74 N Baso Abs (test code = ABASO) 0.0 K/cumm 0.00-0.21 N XR CHEST 1 [id number] 21:38:09EXAM: CHEST ONE VIEWINDICATION: CoughCOMPARISON: October 06, 2017TECHNIQUE: AP view of the chest.FINDINGS: The cardiomediastinal silhouette is unchanged. Mild congestive changesbilaterally. No pneumothorax or pleural effusion is identified. Theosseous structures are unremarkable.IMPRESSION: Diffuse congestive changes bilaterally.LOCATION: R16US DUPLX EXT VEINS [facility], [id number] 20:09:34AFTER HOURS SERVICE ON: 10/06/2017 8:09 PMRIGHT Lower Extremity Venous Duplex Doppler ExaminationLocation Code E44Anbqdvk: SwellingTechnique: Real-time castillo scale, Doppler spectral analysis [...] Lower Extremity Venous Duplex Doppler ExaminationLocation Code W09Yeegv ry: SwellingTechnique: Real-time castillo scale, Doppler spectral [...] of DVT in the imaged vessels.Comprehensive Metabolic [id number] 17:40:00 Test Item Value Reference Range Interpretation [...] National Kidney Foundation,http ://nkd ep.nih.gov CBC with [id number] 17:15:00 Test Item Value Reference Range Interpretation [...] code = ALYMPH) 1.3 K/cumm 0.5-4.6 N [place] Abs (test code = AMONO) 0.6 K/cumm 0.0-1.2 N Eos Abs (test code = AEOS) 0.12 K/cumm 0.00-0.74 N Baso Abs (test code = ABASO) 0.0 K/cumm 0.00-0.21 N XR CHEST 1 [id number] 16:56:42CHEST 1 VIEW: [id number]: coughCOMPARISON:Sep 24, 2017FINDINGS:The heart is enlarged. There is engorgement of the central pulmonaryvasculature. There are patchy bibasilar areas of infiltrate oratelectasis with bilateral effusions. No pneumothorax is present. IMPRESSION: 1. Patchy areas of atelectasis or infiltrate in the lung bases withsmall bilateral effusions and vascular congestion most likely secondaryto CHF.Culture, Blood [id number] 14:58:00Specimen: BloodCollected: 09/24/2017 13:05 Status: Final Last Updated: 09/29/2017 14:58 (1) ER Bed 1 Culture Result (Final) (Final) No Growth After 5 DaysCulture, Blood [id number] 14:58:00Specimen: BloodCollected: 09/24/2017 12:50 Status: Final Last Updated: 09/29/2017 14:58 (1) ER Bed 1 Culture Result (Final) (Final) No Growth After 5 DaysPOC Glucose, [id number] 10:54:00 Test Item Value Reference Range Interpretation Comments POC Glucose (test 168 mg/dL 70-115 H If you con registered nurse cardiac your code = POCGLUC) patient crit ically ill, the [facility] Accu- Chek InformII meters hould not be used for Glu cose determinations. Draw a venous Glucose and send to the Main Lab for Analysis. POC Glucose, [id number] 07:16:00 Test Item Value Reference Range Interpretation Comments POC Glucose (test 143 mg/dL 70-115 H If you con registered nurse cardiac your code = POCGLUC) patient crit ically ill, the Madeline Accu- Chek InformII meters hould not be used for Glu cose determinations. Draw a venous Glucose and send to the Main Lab for Analysis. CBC with [id number] 07:15:00 Test Item Value Reference Range Interpretation [...] code = ALYMPH) 1.3 K/cumm 0.5-4.6 N [place] Abs (test code = AMONO) 0.7 K/cumm 0.0-1.2 N Eos Abs (test code = AEOS) 0.07 K/cumm 0.00-0.74 N Baso Abs (test code = ABASO) 0.0 K/cumm 0.00-0.21 N Magnesium, [id number] 07:03:00 Test Item Value Reference Range Interpretation Comments Magnesium (test code = MG) 2.0 mg/dL 1.7-2.5 N Basic Metabolic [id number] 07:03:00 Test Item Value Reference Range Interpretation [...] National Kidney Foundation,http ://nkd ep.nih.gov POC Glucose, [id number] 21:40:00 Test Item Value Reference Range Interpretation Comments POC Glucose (test 129 mg/dL 70-115 H If you con registered nurse cardiac your code = POCGLUC) patient crit ically ill, the [facility]eline Accu- Chek InformII meters hould not be used for Glu cose determinations. Draw a venous Glucose and send to the Main Lab for Analysis. Hep B Surface [id number] 18:36:00 Test Item Value Reference Range Interpretation Comments Hep Bs Ag (test code = HBSAG) Nonreactive Non-Reactive A POC Glucose, [id number] 10:51:00 Test Item Value Reference Range Interpretation Comments POC Glucose (test 216 mg/dL 70-115 H If you con registered nurse cardiac your code = POCGLUC) patient crit ically ill, the [place]eline Accu- Chek InformII meters hould not be used for Glu cose determinations. Draw a venous Glucose and send to the Main Lab for Analysis. POC Glucose, [id number] 07:57:00 Test Item Value Reference Range Interpretation Comments POC Glucose (test 164 mg/dL 70-115 H If you con registered nurse cardiac your code = POCGLUC) patient crit ically ill, the [facility]eline Accu- Chek InformII meters hould not be used for Glu cose determinations. Draw a venous Glucose and send to the Main Lab for Analysis. POC Glucose, [id number] 19:47:00 Test Item Value Reference Range Interpretation Comments POC Glucose (test 140 mg/dL 70-115 H Notify RN or MDIf you code = POCGLUC) consider you r patient critically ill, the [facility] Accu-Chek InformII metershould not be used for Glucose determinations. Draw a venous Glucose and send to the Main Lab for Analysis. Troponin [id number] 19:36:00 Test Item Value Reference Range Interpretation Comments Troponin T (test code = MADHAV) 0.121 ng/mL 0.000-0.090 H CK [id number] 19:25:00 Test Item Value Reference Range Interpretation Comments CK (test code = CK) 160 U/L 39-308 N The valu e HIDE originally released by [facility] on 09/25/2017 19:1 2 waschanged to 1 60 by [employer] on 09/25 19:24 CKMB (test code = 3.0 ng/mL 0.0-4.9 N CKMB) CKMB% (test code = 1.9 % 0.0-3.4 N The value HIDE originally CKMBP) released by [facility] on 09/25/2017 19:1 2 waschanged to 1 .9 by [employer] on 09/25 19:24 POC Glucose, [id number] 16:42:00 Test Item Value Reference Range Interpretation Comments POC Glucose (test 123 mg/dL 70-115 H If you con registered nurse cardiac your code = POCGLUC) patient crit ically ill, the [facility] Accu- Chek InformII meters hould not be used for Glu cose determinations. Draw a venous Glucose and send to the Main Lab for Analysis. POC Glucose, [id number] 12:09:00 Test Item Value Reference Range Interpretation Comments POC Glucose (test 141 mg/dL 70-115 H If you con registered nurse cardiac your code = POCGLUC) patient crit ically ill, the [facility] Accu- Chek InformII meters hould not be used for Glu cose determinations. Draw a venous Glucose and send to the Main Lab for Analysis. Hep B Surface [id number] 07:59:00 Test Item Value Reference Range Interpretation Comments Hep Bs Ag (test code = HBSAG) Nonreactive Non-Reactive A CK [id number] 07:43:00 Test Item Value Reference Range Interpretation Comments CK (test code = CK) n/a U/L 39-308 N CKMB (test code = CKMB) 2.4 ng/mL 0.0-4.9 N CKMB% (test code = CKMBP) 0.0 % 0.0-3.4 N Troponin [id number] 07:38:00 Test Item Value Reference Range Interpretation Comments Troponin T (test code = MADHAV) 0.134 ng/mL 0.000-0.090 H Thyroid Stimulating Hormone (TSH)2017-09-25 07:38:00 Test Item Value Reference Range Interpretation Comments TSH (test code = TSH) 1.10 mIU/mL 0.270-4.200 N [id number] 07:38:00 Test Item Value Reference Range Interpretation Comments Phosphorus (test code = PO4) 3.4 mg/dL 2.70-4.50 N Comprehensive Metabolic [id number] 07:38:00 Test Item Value Reference Range Interpretation [...] the National Kidney Foundation,http ://nkd ep.nih.gov Magnesium, [id number] 07:38:00 Test Item Value Reference Range Interpretation Comments Magnesium (test code = MG) 2.0 mg/dL 1.7-2.5 N CK [id number] 07:31:00 Test Item Value Reference Range Interpretation Comments CK (test code = CK) 159 U/L 39-308 N Lipid [id number] 07:31:00 Test Item Value Reference Range Interpretation Comments Cholesterol (test 118 mg/dL 0-200 N code = CHOL) Triglycerides (test 170 mg/dL 9-200 N code = TRIG) HDL (test code = 49 mg/dL 40-60 N HDL) Chol/HDL (test code 2.4 Ratio 0.0-5.0 N = CHOLPHDL) LDL, Calculated 35 0-130 N (NOTE)RISK O F HEART (test code = LDLC) DISEASEPu blished by [place] Heart AssociationAnal yte Optim al Boderline Increased RiskC HOL <200 200-239 >240TRI G <150 150-199 >200HDL Male: >60 <40HDL Female: >60 <50 LDL < 100 130-15 9 >160 LDL NEAR OPTIMAL IS 100- 129 VLDL (test code = 34 mg/dL 5-40 N VLDL) LDL/HDL (test code = 1 LDLPHDL) Glycosylated [id number] 07:24:00 Test Item Value Reference Range Interpretation Comments HBA1c (test code = HBA1C) 5.0 % 4.8-5.9 N CBC with [id number] 07:20:00 Test Item Value Reference Range Interpretation [...] code = ALYMPH) 0.8 K/cumm 0.5-4.6 N [place] Abs (test code = AMONO) 0.5 K/cumm 0.0-1.2 N Eos Abs (test code = AEOS) 0.10 K/cumm 0.00-0.74 N Baso Abs (test code = ABASO) 0.0 K/cumm 0.00-0.21 N POC Glucose, [id number] 07:03:00 Test Item Value Reference Range Interpretation Comments POC Glucose (test 147 mg/dL 70-115 H If you con registered nurse cardiac your code = POCGLUC) patient crit ically ill, the [facility] Accu- Chek InformII meters hould not be used for Glu cose determinations. Draw a venous Glucose and send to the Main Lab for Analysis. POC Glucose, [id number] 22:05:00 Test Item Value Reference Range Interpretation Comments POC Glucose (test 134 mg/dL 70-115 H If you con registered nurse cardiac your code = POCGLUC) patient crit ically ill, the [facility] Accu- Chek InformII meters hould not be used for Glu cose determinations. Draw a venous Glucose and send to the Main Lab for Analysis. Blood Gas+Lytes+Glu+Ca+Hgb+Hct+[id number] 18:31:00 Test Item Value Reference Range Interpretation [...] (test code = alokrblvverqnscrit COMMENT) liz Pierre@ [id number]/23figrrt Puncture Site (test code = Radial. R PUNSITE) Drawing Tech ID (test code medel fi = [email or web address]) iPAP (test code = IPAP) 0 cmH2O Respiratory Rate (test code 0 = RESP RATE) Lactic Acid, Blood Gas 0.4 mmol/L (test code = BGLA) CT CHEST W/O [id number] 16:48:03CT CHEST W/O CONTRASTLOCATION CODE: R16 HISTORY: [...] bilateral axillary, prevascular, andparatracheal lymph nodes.Influenza B [id number] 14:36:00Specimen: NasalCollected: 09/24/2017 14:04 Status: Final Last [...] Culture of negative samples is recommended.Influenza A [id number] 14:34:00Specimen: NasalCollected: 09/24/2017 14:04 Status: Final Last [...] Culture of negative samples is recommended.Comprehensive Metabolic [id number] 13:54:00 Test Item Value Reference Range Interpretation [...] the National Kidney Foundation,http ://nkd ep.nih.gov Troponin [id number] 13:54:00 Test Item Value Reference Range Interpretation Comments Troponin T (test code = MADHAV) 0.124 ng/mL 0.000-0.090 H [id number] 13:54:00 Test Item Value Reference Range Interpretation Comments NT ProBnp (test code = PBNP) >22070 pg/mL 0-124 H CK [id number] 13:54:00 Test Item Value Reference Range Interpretation Comments CK (test code = CK) 222 U/L 39-308 N CKMB (test code = CKMB) 3.1 ng/mL 0.0-4.9 N CKMB% (test code = CKMBP) 1.4 % 0.0-3.4 N CK [id number] 13:54:00 Test Item Value Reference Range Interpretation Comments CK (test code = CK) 222 U/L 39-308 N Partial Thromboplastin [id number] 13:43:00 Test Item Value Reference Range Interpretation Comments aPTT (test code = PTT) 35.70 seconds 24.39-37.25 N Prothrombin [id number] 13:43:00 Test Item Value Reference Range Interpretation Comments PT (test code = PT) 11.30 seconds 9.78-13.35 N INR (test code = INR) 0.99 Ratio 0.6-1.2 N Lactic Acid [id number] 13:41:00 Test Item Value Reference Range Interpretation Comments Lactic Acid, Bld (test code = LAC) 1.3 mmol/L 0.5-1.9 N CBC with [id number] 13:32:00 Test Item Value Reference Range Interpretation [...] code = ALYMPH) 1.2 K/cumm 0.5-4.6 N [place] Abs (test code = AMONO) 0.6 K/cumm 0.0-1.2 N Eos Abs (test code = AEOS) 0.23 K/cumm 0.00-0.74 N Baso Abs (test code = ABASO) 0.0 K/cumm 0.00-0.21 N XR CHEST 1 [id number] 12:50:14XR CHEST 1 VIEWLOCATION: [id number]: None.INDICATION: CoughDISCUSSION:A single portable chest radiograph was [...]
[2021-07-25] MEDS ORDERED: MORPHINE 2 MG/ML SYR ONE (19:36)
[2021-07-25] MEDS ORDERED: ONDANSETRON 4 MG/2 ML VIAL ONE (19:36)
[2021-07-25] MEDS ORDERED: FAMOTIDINE 20 MG/2 ML VIAL IV ONE (19:37)
--- NOTE | 2021-07-25 20:10 | RAD REPORT ---
EXAM DESCRIPTION: RAD - Chest Single View - 07/25/2021 7:24 pm CLINICAL HISTORY: ABDOMINAL DISTENTION COMPARISON: July 20June 27 TECHNIQUE: AP portable chest image was obtained 07/25/2021 7:24 pm . FINDINGS: Extensive interstitial lung disease is present as a baseline. Pattern is not significantly different back to June 27 imaging. No new mass or consolidation. Stable cardiomegaly is present. There is vascular engorgement still present. Sternotomy wires are in place. AFib ablation device in p lace. No large pleural effusions seen. Right costophrenic angle blunting is present. There is no pneu mothorax. No acute bony abnormality seen. No acute aortic findings suspected. IMPRESSION: Cardiomegaly, vascular engorgement and diffusely prominent interstitial markings are pre sent similar to prior imaging. This CHF/ volume overload pattern is not clearly different back to June 27 imaging.
--- NOTE | 2021-07-25 20:12 | RAD REPORT ---
EXAM DESCRIPTION: US - Abdomen Exam Limited - 07/25/2021 7:52 pm CLINICAL HISTORY: ABD PAIN COMPARISON: Abdomen Pelvis Wo Contrast dated 05/02/2020 FINDINGS: A small 7 x 3 mm echogenic focus is present along the wall of the gallbladder near the nec k. This did not change position throughout the examination. A small sessile polyp, tumefactive sludge or adherent gallstone or possible. Acute significance is doubtful. There is no wall thickening or pericholecystic fluid. No common duct stone or biliary tree dilatation identified. IMPRESSION: No acute gallbladder or biliary tree finding identified.
--- NOTE | 2021-07-25 20:37 | RAD REPORT ---
EXAM DESCRIPTION: CT - Abdomen Pelvis Wo Contrast - 07/25/2021 8:15 pm CLINICAL HISTORY: ABD PAIN COMPARISON: CT chest June 20, CT abdomen and pelvis April 2020 TECHNIQUE: Axial [address] imaging of the abdomen and pelvis was performed without IV contrast. No IV contrast was given because of allergy, abnormal renal function, patient refusal or physician re quest. No oral contrast administered. All CT scans are performed using dose optimization technique as appropriate and may include automated exposure control or mA/KV adjustment according to patient size. FINDINGS: Cardiomegaly is present similar to prior imaging. No pericardial thickening or effusion. C hronic pleural and parenchymal opacities are present in each lung base. Lung base findings are not cl early different from recent CT chest. A 15 millimeter lymph node is present in the right side perica rdial fat similar to the 2019 CT study. Liver is prominent with a nodular capsular contour. No focal liver parenchymal lesions seen on noncon trast imaging. Spleen is prominent with no focal splenic abnormality seen. No new pancreatic or perip ancreatic abnormality seen. Punctate 4 millimeter gallstone is present near the neck of the gallbladd er. No biliary tree dilatation. Wall of gallbladder is not clearly different from prior imaging. No hydronephrosis or suspicious renal mass. No significant adrenal finding. Isodense renal masses an d pyelonephritis cannot be excluded in the absence of IV contrast. Urinary bladder is tightly contrac jayla limiting detail. No gastric dilatation or gastric wall thickening. Burton of the duodenum are minimally prominent but t he C-loop. No dilated large or small bowel loops. Appendicitis is not suspected. Diverticulosis is mi ld with no acute diverticulitis. No free air, free fluid or inflammatory stranding. No mass or bulky lymphadenopathy. Small mesenteric lymph nodes are present. Disc and bone degenerative changes are present. Postsurgical changes are present at the left hip join t. Soft tissue scarring in stranding changes are present in each groin presumably from prior vascular access procedures. Patient has dense arterial tree calcifications. IMPRESSION: No bowel obstruction, free air or surgically emergent finding. Punctate gallstone is present similar to April 2020. This may be an adherent to the wall or less lik miky a gallbladder wall calcification. Mild prominence of gallbladder wall not clearly different from prior imaging. Duodenal C-loop burton are mildly prominent. Duodenitis is possible. No other possible acute bowel pro cess identified. Chronic pleural and parenchymal changes at each lung base similar to comparison.
[2021-07-25 21:47] LABS: Protime INR 2.72
[2021-07-25 21:48] LABS: Absolute Lymphocytes (CBC) 0.7 K/uL (0.7-4.9); Basophils % 0.8 % (0-1.3); Hematocrit 30.3 % (39.6-49.0); Lymphocytes % 14.9 % (15.3-44.8); MPV 7.1 fL (7.6-11.3); RBC Red Blood Cell Count 3.05 M/uL (4.33-5.43)
[2021-07-25 22:07] LABS: Albumin 3.3 g/dL (3.4-5.0); Bilirubin Direct 0.2 mg/dL (0-0.2); Bilirubin Total 0.7 mg/dL (0.2-1.0); Potassium 3.7 mmol/L (3.5-5.1); Troponin I 0.02 ng/mL (0.0-0.045)
--- NOTE | 2021-07-25 22:24 | EDPHYS ---
Physician Documentation [facility] Name: Salvatore Goldman Age: 66 yrs Sex: Male : 1955 Arrival Date: 07/25/2021 Time: 17:42 Bed 20 Private MD: ED Physician Boston Johnson HPI: 07/25 19:30 This 66 yrs old Black Male presents to ER via Ambulatory with complaints of Abdominal beny Pain, Vomiting. 19:30 The patient presents to the emergency department with nausea, vomiting, diarrhea, beny abdominal pain, of the right lower quadrant and left lower quadrant. Onset: The symptoms/episode began/occurred this morning, today. Possible causes: unknown. The symptoms are aggravated by movement, food , The symptoms are alleviated by remaining still. Associated signs and symptoms: Pertinent positives: abdominal pain, diarrhea, nausea, vomiting. Severity of symptoms: At their worst the symptoms were moderate in the emergency department the symptoms are unchanged. The patient has not experienced similar symptoms in the past. Historical: - Allergies: 18:05 No Known Allergies; aa5 - PMHx: 17:59 Cirrhosis; Diabetes - NIDDM; Dialysis; heart valve; Hepatitis; HIV; Hyperlipidemia; aa5 Hypertensive disorder; Karposi Sarcoma (left leg); kidney failure; L arm HD access; - Immunization history:: Client reports receiving the 2nd dose of the Covid vaccine, and booster Flu vaccine is up to date. - Social history:: Smoking status: Patient denies any tobacco usage or history of. ROS: 19:32 Constitutional: Negative for fever, chills, and weight loss, Eyes: Negative for injury, beny pain, redness, and discharge, ENT: Negative for injury, pain, and discharge, Neck: Negative for injury, pain, and swelling, Cardiovascular: Negative for chest pain, palpitations, and edema, Respiratory: Negative for shortness of breath, cough, wheezing, and pleuritic chest pain, Back: Negative for injury and pain, : Negative for injury, bleeding, discharge, and swelling, MS/Extremity: Negative for injury and deformity, Skin: Negative for injury, rash, and discoloration, Neuro: Negative for headache, weakness, numbness, tingling, and seizure, Psych: Negative for depression, anxiety, suicide ideation, homicidal ideation, and hallucinations, Allergy/Immunology: Negative for hives, rash, and allergies, Endocrine: Negative for neck swelling, polydipsia, polyuria, polyphagia, and marked weight changes, Hematologic/Lymphatic: Negative for swollen nodes, abnormal bleeding, and unusual bruising. 19:32 Abdomen/GI: Positive for abdominal pain, nausea and vomiting, diarrhea, abdominal cramps, of the right lower quadrant and left lower quadrant. Exam: 19:32 Constitutional: This is a well developed, well nourished patient who is awake, alert, beny and in no acute distress. Head/Face: Normocephalic, atraumatic. Eyes: Pupils equal round and reactive to light, extra-ocular motions intact. Lids and lashes normal. Conjunctiva and sclera are non-icteric and not injected. Cornea within normal limits. Periorbital areas with no swelling, redness, or edema. ENT: Nares patent. No nasal discharge, no septal abnormalities noted. Tympanic membranes are normal and external auditory canals are clear. Oropharynx with no redness, swelling, or masses, exudates, or evidence of obstruction, uvula midline. Mucous membranes moist. Neck: Trachea midline, no thyromegaly or masses palpated, and no cervical lymphadenopathy. Supple, full range of motion without nuchal rigidity, or vertebral point tenderness. No Meningismus. Chest/axilla: Normal chest wall appearance and motion. Nontender with no deformity. No lesions are appreciated. Cardiovascular: Regular rate and rhythm with a normal S1 and S2. No gallops, murmurs, or rubs. Normal PMI, no JVD. No pulse deficits. Respiratory: Lungs have equal breath sounds bilaterally, clear to auscultation and percussion. No rales, rhonchi or wheezes noted. No increased work of breathing, no retractions or nasal flaring. Back: No spinal tenderness. No costovertebral tenderness. Full range of motion. Male : Normal genitalia with no discharge or lesions. Skin: Warm, dry with normal turgor. Normal color with no rashes, no lesions, and no evidence of cellulitis. MS/ Extremity: Pulses equal, no cyanosis. Neurovascular intact. Full, normal range of motion. Neuro: Awake and alert, GCS 15, oriented to person, place, time, and situation. Cranial nerves II-XII grossly intact. Motor strength 5/5 in all extremities. Sensory grossly intact. Cerebellar exam normal. Normal gait. Psych: Awake, alert, with orientation to person, place and time. Behavior, mood, and affect are within normal limits. 19:32 Abdomen/GI: Inspection: abdomen appears normal, Bowel sounds: active, all quadrants, Palpation: mild abdominal tenderness, in the right lower quadrant and left lower quadrant, Liver: no appreciated palpable abnormalities, Hernia: not appreciated. Vital Signs: 17:59 BP 126 / 86; Pulse 84; Resp 18 S; Temp 98.0(TE); Pulse Ox 96% on R/A; Weight 72.57 kg aa5 (R); Height 5 ft. 7 in. (170.18 cm) (R); 20:45 BP 134 / 47; Pulse 82; Resp 20 S; Temp 98.1(O); Pulse Ox 100% on R/A; bb 21:45 BP 124 / 36; Pulse 84; Resp 18 S; Pulse Ox 95% on R/A; bb 22:30 BP 117 / 36; Pulse 82; Resp 18; Temp 98.1; Pulse Ox 96% ; bb 22:30 BP 117 / 36; Pulse 82; Resp 18 S; Temp 98.1(O); Pulse Ox 96% on R/A; bb 17:59 Body Mass Index 25.06 (72.57 kg, 170.18 cm) aa5 MDM: 19:12 Patient medically screened. beny 19:33 Differential diagnosis: Nonspecific abd pain, gastritis, cholecystitis, pancreatitis, beny appendicitis, diverticulitis, viral gastroenteritis, gastroenteritis, bowel obstruction, cholecystitis, Cholelithiasis, diverticulitis. Data reviewed: vital signs, nurses notes, lab test result(s), EKG, radiologic studies, CT scan, doppler. Data interpreted: director of convention services: rate is 84 beats/min, rhythm is regular, Pulse oximetry: on room air is 96 %. Test interpretation: by ED physician or midlevel provider: ECG, plain radiologic studies. Counseling: I had a detailed discussion with the patient and/or guardian regarding: the historical points, exam findings, and any diagnostic results supporting the discharge/admit diagnosis, lab results, radiology results. 07/25 18:37 Order name: Basic Metabolic Panel; Complete Time: 22:22 iw 07/25 18:37 Order name: CBC with Diff; Complete Time: 22:22 iw 07/25 18:37 Order name: Hepatic Function; Complete Time: 22:22 07/25 18:37 Order name: Lipase; Complete Time: 22:22 07/25 19:14 Order name: PT-INR; Complete Time: 22:22 [facility] 07/25 19:14 Order name: XRAY Chest (1 view); Complete Time: 21:14 [facility] 07/25 19:14 Order name: US Abdomen Limited; Complete Time: 21:14 [facility] 07/25 19:14 Order name: CT Abd/Pelvis - Without Contrast; Complete Time: 21:14 [facility] 07/25 21:44 Order name: Troponin I; Complete Time: 22:22 [facility] 07/25 21:44 Order name: NT PRO-BNP; Complete Time: 22:22 [facility] 07/25 21:44 Order name: Magnesium; Complete Time: 22:22 [facility] 07/25 18:37 Order name: IV Saline Lock; Complete Time: 20:57 07/25 18:37 Order name: Labs collected and sent; Complete Time: 20:13 07/25 19:14 Order name: EKG; Complete Time: 19:15 [facility] 07/25 19:14 Order name: Cardiac monitoring; Complete Time: 20:13 [facility] 07/25 19:14 Order name: EKG - Nurse/Tech; Complete Time: 20:50 [facility] 07/25 19:14 Order name: O2 Sat Monitoring; Complete Time: 19:46 [facility] Administered Medications: 20:45 Drug: morphine 2 mg Route: IVP; Site: right upper arm; bb 22:30 Follow up: BP 117 / 36; Pulse 82 bpm; Resp 18 bpm; Temp 98.1; Pulse Ox 96% bb 22:30 Follow up: Response: Adverse reaction, Physician notified; Pain is decreased bb 20:47 Drug: Zofran (Ondansetron) 4 mg Route: IVP; Site: right upper arm; bb 22:30 Follow up: Response: No adverse reaction; Nausea is decreased bb 20:49 Drug: Pepcid (famotidine) 20 mg Route: IVP; Site: right upper arm; bb 22:30 Follow up: Response: No adverse reaction; Nausea is decreased bb Disposition Summary: 07/25/21 22:23 Discharge Ordered Location: Home beny Problem: new beny Symptoms: have improved beny Condition: Stable beny Diagnosis - Abdominal tenderness beny - Vomiting beny - Diarrhea, unspecified beny - End stage renal disease - on HD , Th and Sat beny - Other cholelithiasis without obstruction beny Followup: beny - With: Private Physician - When: 2 - 3 days - Reason: Recheck today's complaints, Continuance of care, Re-evaluation by your physician Discharge Instructions: - Discharge Summary Sheet beny - Abdominal Pain, Adult beny - Food Choices to Help Relieve Diarrhea, Adult beny - Diarrhea, Adult beny - Diarrhea, Adult, [id number]-[id number]-[id number] beny - Cholelithiasis, [id number]-[id number]-Unwn [facility] Forms: - Medication Reconciliation Form [facility] - Thank You Letter beny - Antibiotic Education beny - Prescription Opioid Use [facility] Prescriptions: - Zofran 4 mg Oral Tablet - take 1 tablet by ORAL route every 12 hours As needed; 20 tablet; Refills: 0, beny Product Selection Permitted - dicyclomine 20 mg Oral Tablet - take 1 tablet by ORAL route 4 times per day; 28 tablet; Refills: 0, Product beny Selection Permitted - Protonix 40 mg Oral Tablet - take 1 tablet by ORAL route once daily; 30 tablet; Refills: 0, Product beny Selection Permitted Signatures: Dispatcher [employer] EDMS Boston Johnson MD MD cha Ballard, Brenda RN RN Gela Mccray RN RN iw Calderon, Audri, RN RN aa5 Corrections: (The following items were deleted from the chart) 21:44 19:15 MAGNESIUM+C.LAB.BRZ ordered. EDMS EDMS 21:44 19:15 PROBNP+C.LAB.BRZ ordered. EDMS EDMS 21:44 19:15 TROPONIN (EMERG DEPT USE ONLY)+C.LAB.BRZ ordered. EDMS EDMS
--- NOTE | 2021-07-25 22:24 | ER ---
Nurse's Notes [facility] Name: Salvatore Goldman Age: 66 yrs Sex: Male : 1955 Arrival Date: 07/25/2021 Time: 17:42 Bed 20 Private MD: Diagnosis: Abdominal tenderness;Vomiting;Diarrhea, unspecified;End stage renal disease-on HD , and Sat;Other cholelithiasis without obstruction Presentation: 07/25 17:59 Chief complaint: Patient states: abd pain, nausea/vomiting/diarrhea. Pt states "It aa5 started after I ate carne guisada, refried beans, and a tortilla". 17:59 Coronavirus screen: diarrhea, nausea, vomiting. Ebola Screen: No symptoms or risks aa5 identified at this time. Initial Sepsis Screen: Does the patient meet any 2 criteria? No. Patient's initial sepsis screen is negative. Does the patient have a suspected source of infection? No. Patient's initial sepsis screen is negative. Risk Assessment: Do you want to hurt yourself or someone else? Patient reports no desire to harm self or others. Onset of symptoms was July 25, 2021. 17:59 Acuity: NARDA 3 aa5 17:59 Method Of Arrival: Ambulatory aa5 Historical: - Allergies: 18:05 No Known Allergies; aa5 - PMHx: 17:59 Cirrhosis; Diabetes - NIDDM; Dialysis; heart valve; Hepatitis; HIV; Hyperlipidemia; aa5 Hypertensive disorder; Karposi Sarcoma (left leg); kidney failure; L arm HD access; - Immunization history:: Client reports receiving the 2nd dose of the Covid vaccine, and booster Flu vaccine is up to date. - Social history:: Smoking status: Patient denies any tobacco usage or history of. Screenin:41 Abuse screen: Denies threats or abuse. Denies injuries from another. Nutritional iw screening: No deficits noted. Tuberculosis screening: No symptoms or risk factors identified. Fall Risk None identified. Assessment: 18:40 General: Appears in no apparent distress. Behavior is calm, cooperative. Pain: iw Complains of pain in right lower quadrant and left lower quadrant Pain began today after eating carne guisada and refired beans. Neuro: Level of Consciousness is awake, alert, obeys commands, Oriented to person, place, time, situation, Cardiovascular: Patient's skin is warm and dry. Respiratory: Respiratory effort is even, unlabored, Respiratory pattern is regular. GI: Abdomen is flat, non-distended, Bowel sounds present X 4 quads. Abd is soft X 4 quads Reports lower abdominal pain. GI: Reports diarrhea, nausea, vomiting. Derm: Skin is intact. Musculoskeletal: Range of motion: intact in all extremities. 19:30 Reassessment: Attempted peripheral IV insertion right arm X 2 attempts with no success; bb pt reports day shift attempted IV access x 2 with no success earlier; Dr. Johnson notified \\T\\ reports will be in to attempt EJ insertion. General: Appears uncomfortable, Behavior is calm, cooperative. Pain: Complains of pain in abdomen and left lower quadrant and right lower quadrant Pain does not radiate. Pain currently is 8 out of 10 on a pain scale. Quality of pain is described as crampy, Pain began this am. Is continuous. Neuro: No deficits noted. Level of Consciousness is awake, alert, obeys commands, Oriented to person, place, time, situation. Cardiovascular: Heart tones S1 S2 Capillary refill < 3 seconds Rhythm is sinus rhythm rare to occasional PVC. Respiratory: No deficits noted. Airway is patent Respiratory effort is even, unlabored, Respiratory pattern is regular, symmetrical. GI: Abdomen is non-distended, c/o nausea Bowel sounds present X 4 quads. Abd is soft X 4 quads Abdomen is tender to palpation lower quads of abd. Reports lower abdominal pain, diarrhea, since thi am (x 5). : Reports inability to void, due to drinking 32 ounces of water a day \\T\\ reports going to hemodialysis today; states, "I don't urinate but maybe a drop or two sometimes"; urinal placed \\T\\ bedside with instructions to collect urine if able to void with v/u. EENT: No signs and/or symptoms were reported regarding the EENT system. Derm: Skin is intact, AV intact left upper arm with + thrill. Musculoskeletal: Capillary refill < 3 seconds, Range of motion: intact in all extremities. 20:15 Reassessment: Dr. Johnson attempted insertion of left and right EJ line bb unsuccessfully; bleeding controlled of each site, katie. well. 20:30 Reassessment: Nina Loomis RN in with "vein finder" \\T\\ inserted # 20 g midline right bb upper arm with success, katie. well. 20:45 Reassessment: Medications given as ordered, katie well. bb 21:00 Reassessment: Patient appears in no apparent distress at this time. Sleeping; no bb distress noted; VSS. 22:20 Reassessment: Patient appears in no apparent distress at this time. Awakened from sleep bb with Dr. Johnson in to see; reports relief of nausea \\T\\ pain; no additional orders recieved. Vital Signs: 17:59 BP 126 / 86; Pulse 84; Resp 18 S; Temp 98.0(TE); Pulse Ox 96% on R/A; Weight 72.57 kg aa5 (R); Height 5 ft. 7 in. (170.18 cm) (R); 20:45 BP 134 / 47; Pulse 82; Resp 20 S; Temp 98.1(O); Pulse Ox 100% on R/A; bb 21:45 BP 124 / 36; Pulse 84; Resp 18 S; Pulse Ox 95% on R/A; bb 22:30 BP 117 / 36; Pulse 82; Resp 18; Temp 98.1; Pulse Ox 96% ; bb 22:30 BP 117 / 36; Pulse 82; Resp 18 S; Temp 98.1(O); Pulse Ox 96% on R/A; bb 17:59 Body Mass Index 25.06 (72.57 kg, 170.18 cm) aa5 ED Course: 17:42 Patient arrived in ED. rg4 17:59 Arm band placed on. aa5 18:05 Triage completed. aa5 19:12 Boston Johnson MD is Attending Physician. [facility] 19:18 Moriah Oliveros, RN is Primary Nurse. sl2 19:24 XRAY Chest (1 view) In Process Unspecified. EDMS 19:45 US Abdomen Limited Sent. sl2 19:52 US Abdomen Limited In Process Unspecified. EDMS 20:12 CT Abd/Pelvis - Without Contrast Sent. sl2 20:13 PT-INR Sent. sl2 20:13 Basic Metabolic Panel Sent. sl2 20:14 CBC with Diff Sent. sl2 20:14 Hepatic Function Sent. sl2 20:14 Lipase Sent. sl2 20:15 CT Abd/Pelvis - Without Contrast In Process Unspecified. EDMS 20:39 Accessed peripheral vein via ultrasound, utilizing dynamic ultrasound technique miryam Powerglide 20 g 8 cm Good blood return. Flushes easily. pt tolerated well. 20:45 Allergy band placed. Bed in low position. Call light in reach. Side rails up X2. bb vehicle monitor technician on. Pulse ox on. NIBP on. 20:57 PT-INR Sent. bb 20:57 Basic Metabolic Panel Sent. bb 20:57 CBC with Diff Sent. bb 20:57 Hepatic Function Sent. bb 20:57 Lipase Sent. bb 22:30 No provider procedures requiring assistance completed. bb 22:30 IV discontinued, intact, bleeding controlled, No redness/swelling at site. Pressure bb dressing applied. Administered Medications: 20:45 Drug: morphine 2 mg Route: IVP; Site: right upper arm; bb 22:30 Follow up: BP 117 / 36; Pulse 82 bpm; Resp 18 bpm; Temp 98.1; Pulse Ox 96% bb 22:30 Follow up: Response: Adverse reaction, Physician notified; Pain is decreased bb 20:47 Drug: Zofran (Ondansetron) 4 mg Route: IVP; Site: right upper arm; bb 22:30 Follow up: Response: No adverse reaction; Nausea is decreased bb 20:49 Drug: Pepcid (famotidine) 20 mg Route: IVP; Site: right upper arm; bb 22:30 Follow up: Response: No adverse reaction; Nausea is decreased bb Outcome: 22:23 Discharge ordered by . beny 22:30 Discharged to home via wheelchair. bb 22:30 Condition: improved 22:30 Discharge instructions given to patient, Instructed on discharge instructions, follow up and referral plans. medication usage, Demonstrated understanding of instructions, follow-up care, medications. 23:09 Patient left the ED. bb Signatures: Dispatcher [employer] EDMS Boston Johnson MD MD cha Ballard, Brenda RN RN bb Gela Samson, RN Miladys Crane RN RN Carley Vences Sophia, RN RN sl2 Corrections: (The following items were deleted from the chart) :44 20:13 MAGNESIUM+C.LAB.BRZ drawn and sent. 2 EDMS :44 20:13 PROBNP+C.LAB.BRZ drawn and sent. 2 EDMS :44 20:13 TROPONIN (EMERG DEPT USE ONLY)+C.LAB.BRZ drawn and sent. sl2 EDMS : 20:57 MAGNESIUM+C.LAB.BRZ drawn and sent. bb EDMS : 20:57 PROBNP+C.LAB.BRZ drawn and sent. EDMS 20:57 TROPONIN (EMERG DEPT USE ONLY)+C.LAB.BRZ drawn and sent. EDMS
[2021-07-25 23:15] VITALS: TEMP 98.1
[2021-07-25 23:18] VITALS: BP 117/36; O2SAT 96
--- NOTE | 2021-07-26 08:03 | EKG ---
Test Date: 2021-07-25 Test Time: 20:40:40 Junior Sales Representative: LOREE MEASUREMENT RESULTS: Intervals: Rate: 81 TX: 216 QRSD: 90 QT: 422 QTc: 490 [place]: P: 14 TX: 216 QRS: 63 T: 70 INTERPRETIVE STATEMENTS: Sinus rhythm with 1st degree AV block Prolonged QT Abnormal ECG Compared to ECG 07/20/2021 11:37:24 First degree AV block now present Prolonged QT interval now present Electronically Signed On 07-26-21 08:02:59 VISION MIXER by Rafael Bedolla
== END 2021-07-25 23:09 | disposition home or self-care (01) ==
LOC: ER 17:39
DX: K80.80 Other cholelithiasis without obstruction (principal); E11.22 Type 2 diabetes mellitus with diabetic chronic kidney disease; I12.0 Hypertensive chronic kidney disease with stage 5 chronic kidney disease or end stage renal disease; N18.6 End stage renal disease; B20 Human immunodeficiency virus [HIV] disease; C46.0 Kaposi's sarcoma of skin; R19.7 Diarrhea, unspecified; R11.10 Vomiting, unspecified; Z99.2 Dependence on renal dialysis; Z95.818 Presence of other cardiac implants and grafts
CPT/HCPCS: 93005; 85025; 80048; 36415; 83735; 85610; 80076; 84484; 83690; 83880; 74176; 71045; 76705; 96375; 96374; 99285; J2270; J2405

== ENCOUNTER 2021-07-30 11:05 | Emergency (ER) | payer OTHER ==
--- OUTSIDE RECORDS SUMMARY | 2021-07-30 11:32 | XMS REPORT | Continuity of Care Document ---
:1955 Author Organization [facility] t Address [address] [place] [address] Care Team Providers Name Role Phone RADHA [...] Expiration Date S prabhjot MEDICARE A B [id number] 2010 00:00:00 MEDICARE PART A & [id number] 2010 B 00:00:00 MEDICARE PART A [id number] 2010 \\T\\ B 00:00:00 CDC REVIEW [id number] 2020 00:00:00 Problems This patient has no known problems. Allergies, Adverse Reactions, Alerts Allergy Allergy Status Severity Reaction(s) Onset Inactive Treating Comm ents Source Name Type Date Date Clinician CODEINE Allergy Active Med Other [facility] 12-02 00:00: 00 NO KNOWN Drug Active [facility] ALLERGIE Class ity of S [facility] Medications This patient has no known medications. [...] / Time Performed Performing Clinician Sourc e 3T0L72N 2020-06-29 00:00:00 ENCPL 8W7H53B 2020-06-29 00:00:00 ENCPL 2Z1I51F 2020-06-29 00:00:00 ENCPL 1Y5P12U 2020-06-29 00:00:00 ENCPL 3Z4A89W 2020-06-29 00:00:00 ENCPL 7V6C51E 2020-06-29 00:00:00 ENCPL 6P1V29L 2020-06-29 00:00:00 ENCPL 9C4E92O 2020-06-29 00:00:00 ENCPL 4Y9O01R 2020-06-29 00:00:00 ENCPL 5D7P67R 2020-06-29 00:00:00 ENCPL 7V2B30L 2020-06-29 00:00:00 ENCPL 3R6D38M 2020-06-29 00:00:00 ENCPL 7X9T37P 2020-06-29 00:00:00 ENCPL 2X4L84K 2020-06-29 00:00:00 ENCPL 1F8T71J 2020-03-05 00:00:00 ENCPL 9A4E33L 2020-03-05 00:00:00 ENCPL 9P7N68N 2020-03-05 00:00:00 ENCPL 8P8E22X 2020-03-05 00:00:00 ENCPL 9S7F45P 2020-03-05 00:00:00 ENCPL 4L8R88Z 2020-03-05 00:00:00 ENCPL 0W4K78T 2020-03-05 00:00:00 ENCPL 7D0D17M 2020-03-05 00:00:00 ENCPL 3I1V42Y 2020-03-05 00:00:00 ENCPL 6C1T55D 2020-03-05 00:00:00 ENCPL 9W4Q89V 2020-03-05 00:00:00 ENCPL 0A6G00K 2020-03-05 00:00:00 ENCPL 4C4G05T 2020-03-05 00:00:00 ENCPL 4K4G25X 2020-03-05 00:00:00 ENCPL 6N1R25O 2020-03-05 00:00:00 ENCPL 9S7H14G 2020-03-05 00:00:00 ENCPL 5V9K27B 2020-03-05 00:00:00 ENCPL 7Q3G87A 2020-03-05 00:00:00 ENCPL 6W5L74R 2020-03-05 00:00:00 ENCPL 6B9E34A 2020-03-05 00:00:00 ENCPL 0W7M61S 2020-03-05 00:00:00 ENCPL 4H3H50T 2019-01-08 00:00:00 ENCPL 5B5P12L 2019-01-08 00:00:00 ENCPL 6J9Y92P 2019-01-08 00:00:00 ENCPL 7N8Y01Z 2019-01-08 00:00:00 ENCPL Encounters Start End Encounter Admission Attending Care Care Encounter Source Date/Time Date/Time Type Type Clinicians Facility Department ID 2020-07-06 Outpatient ALOK SHERCHACLR ENCCLR [id number] ENCCLR 21:26:21 N MELVIN 2020-02-26 Inpatient ER DAMARIS [facility] [id number] [facility] 23:10:00 DELANEY 2021-10-23 2021-10-23 [id number] [place] 00:[facility]:00 00:00:00 [facility] 2021-10-09 2021-10-09 [facility] [id number] [place] 00:00:00 00:00:00 [facility] 2021-09-05 2021-09-05 Outpatient [facility] [id number] [place] 00:00:00 00:00:00 [facility] 2021-07-31 2021-07-31 Outpatient JOSE MIGUEL BARRY [facility] [id number] [place] 00:00:00 00:00:00 [facility] 2021-07-21 2021-07-21 Outpatient EL MARQUEZ, [facility] [id number] [facility] 07:11:08 23:59:00 [place] 2021-07-21 2021-07-21 Outpatient [facility] [id number] [facility] 00:00:00 23:59:00 Bj Medicin suly 2021-07-19 2021-07-19 Outpatient EL SLE SLE [id number] [facility] 07:19:43 07:19:43 2021-07-17 2021-07-17 Outpatient [facility] [id number] [place] 12:03:08 12:07:37 [facility] 2021-07-17 2021-07-17 Outpatient BOBBY [facility] [id number] López 09:04:13 11:23:22 [facility] 2021-07-17 2021-07-17 Outpatient JOSE MIGUEL BARRY [facility] [id number] [place] 08:46:08 09:12:52 [facility] 2021-07-17 2021-07-17 Outpatient ALEJANDRINA [facility] [id number] Dawn 00:00:00 00:00:00 JOSE GUILLERMO 2021-07-17 2021-07-17 Outpatient HARRIETT [facility] [id number] Dawn 00:00:00 00:00:00 [facility] 2021-07-10 2021-07-10 Outpatient JOSE MIGUEL BARRY [facility] [id number] Dawn 00:00:00 00:00:00 [facility] 2021-07-03 2021-07-03 Outpatient JOSE MIGUEL BARRY [facility] [id number] Dawn 07:40:01 14:04:21 [facility] 2021-07-03 2021-07-03 Outpatient BOBBY [facility] [id number] Dawn 08:05:52 08:18:57 [facility] 2021-07-03 2021-07-03 Outpatient 3 [facility] [id number] [place] 08:05:52 08:18:57 [facility] 2021-07-03 2021-07-03 Outpatient JUDD [facility] [id number] Dawn 00:00:00 00:00:00 [facility] 2021-07-03 2021-07-03 Outpatient HARRIETT [facility] [id number] Dawn 00:00:00 00:00:00 [facility] 2021-06-26 2021-06-26 Outpatient JOSE MIGUEL BARRY [facility] [id number] Dawn 07:54:30 08:35:16 [facility] 2021-06-12 2021-06-12 Outpatient JOSE MIGUEL BARRY [facility] [id number] Dawn 07:56:03 08:33:36 [facility] 2021-05-29 2021-05-29 Outpatient JOSE MIGUEL BARRY [facility] [id number] Dawn 08:28:20 09:29:41 [facility] 2021-05-15 2021-05-15 Outpatient JOSE MIGUEL BARRY [facility] [id number] Dawn 08:03:38 08:31:36 [facility] 2021-05-01 2021-05-01 Outpatient [facility] [id number] Dawn 08:40:51 08:46:27 [facility] 2021-05-01 2021-05-01 Outpatient JOSE MIGUEL BARRY [facility] [id number] Dawn 08:04:58 08:32:39 [facility] 2021-05-01 2021-05-01 Outpatient DANIELLE [facility] [id number] Dawn 00:00:00 00:00:00 [facility] 2021-04-24 2021-04-24 Outpatient JOSE MIGUEL BARRY [facility] [id number] Dawn 08:03:45 08:22:54 [facility] 2021-04-17 2021-04-17 Outpatient JOSE MIGUEL BARRY [facility] [id number] Dawn 08:38:35 08:58:58 [facility] 2021-04-10 2021-04-10 Outpatient FRANCESCO [facility] [id number] [place] 00:00:00 00:00:00 [facility] 2021-03-27 2021-03-27 Outpatient DANIELLE [facility] [id number] [place] 12:10:09 12:36:55 [facility] 2021-03-27 2021-03-27 Outpatient JOSE MIGUEL BARRY [facility] [id number] [place] 09:45:17 10:13:09 [facility] 2021-03-07 2021-03-07 Outpatient JOSE MIGUEL BARRY [facility] [id number] [place] 12:04:05 12:23:09 [facility] 2021-02-20 2021-02-20 Outpatient [facility] [id number] [place] 08:34:14 08:39:27 [facility] 2021-02-20 2021-02-20 Outpatient JOSE MIGUEL BARRY [facility] [id number] [place] 08:09:20 08:34:30 [facility] 2021-02-20 2021-02-20 Outpatient HARRIETT [facility] [id number] [place] 00:00:00 00:00:00 [facility] 2021-02-19 2021-02-19 Emergency [facility] [id number] [place] 00:00:00 00:00:00 KRISTI [address] 2021-02-06 2021-02-06 Outpatient [facility] [id number] [place] 09:14:10 09:17:27 [facility] 2021-02-06 2021-02-06 Outpatient JOSE MIGUEL BARRY [facility] [id number] [place] 08:49:54 09:14:22 [facility] 2021-02-06 2021-02-06 Outpatient DANIELLE [facility] [id number] Dawn 00:00:00 00:00:00 [facility] 2021-02-06 2021-02-06 Outpatient JUDD [facility] [id number] Dawn 00:00:00 00:00:00 [facility] 2021-01-23 2021-01-23 Outpatient DANIELLE [facility] [id number] [place] 11:31:24 12:44:32 [facility] 2021-01-23 2021-01-23 Outpatient JOSE MIGUEL BARRY [facility] [id number] [place] 10:14:28 10:36:06 [facility] 2021-01-10 2021-01-10 Outpatient JOSE MIGUEL BARRY [facility] [id number] [place] 07:22:07 11:41:14 [facility] 2021-01-09 2021-01-09 Outpatient [facility] [id number] [place] 09:13:08 09:20:36 [facility] 2021-01-09 2021-01-09 Outpatient HARRIETT, [facility] [id number] [place] 08:19:59 09:12:38 [facility] 2021-01-09 2021-01-09 Outpatient JESSICA, [facility] [id number] [place] 00:00:00 00:00:00 [facility] 2021-01-09 2021-01-09 Outpatient HARRIETT [facility] [id number] [place] 00:00:00 00:00:00 [facility] 2021-01-04 2021-01-04 Outpatient JOSE MIGUEL BARRY [facility] [id number] [place] 11:36:44 12:43:02 [facility] 2021-01-02 2021-01-02 Outpatient JOSE MIGUEL BARRY [facility] [id number] [place] 07:27:21 12:04:53 [facility] 2021-01-02 2021-01-02 Outpatient JOSE MIGUEL BARRY [facility] [id number] [place] 00:00:00 00:00:00 [facility] 2020-12-30 2020-12-30 Outpatient [facility] [id number] [place] 00:00:00 00:00:00 [facility] 2020-12-19 2020-12-19 Outpatient JOSE MIGUEL BARRY [facility] [id number] [place] 09:18:35 09:59:02 [facility] 2020-12-16 2020-12-16 Outpatient JESSICA [facility] [id number] [place] 10:25:40 10:35:40 [facility] 2020-12-16 2020-12-16 Outpatient JESSICA, [facility] [id number] [place] 00:00:00 00:00:00 [facility] 2020-11-28 2020-11-28 Emergency X VENITA [facility] [id number] [facility] 22:52:00 22:52:00 JAMIL [facility] 2020-11-24 2020-11-24 Outpatient RUPERTO, [facility] [id number] [place] 13:25:44 13:59:48 [facility] 2020-11-10 2020-11-10 Outpatient RUPERTO, [facility] [id number] [place] 00:00:00 00:00:00 [facility] 2020-11-09 2020-11-09 Outpatient JONNY MON [facility] [id number] [place] 07:51:58 08:14:33 Health 2020-10-27 2020-10-27 Outpatient RUPERTO, [facility] [id number] [place] 12:02:34 12:25:02 [facility] 2020-10-20 2020-10-20 Outpatient RUPERTO, [facility] [id number] [place] 00:00:00 00:00:00 [facility] 2020-10-20 2020-10-20 Outpatient RUPERTO, [facility] [id number] [place] 00:00:00 00:00:00 [facility] 2020-10-06 2020-10-06 Outpatient RUPERTO, [facility] [id number] [place] 11:11:47 11:11:47 [facility] 2020-07-08 2020-07-08 Outpatient CHRISTOS, [facility] [id number] [facility] 08:37:00 08:37:00 MELVIN [facility] 2020-05-09 2020-06-28 Inpatient VO, [facility] [id number] [place] 00:00:00 00:00:[address] 2020-04-21 2020-04-21 Emergency ER SLE Emergency [id number] [facility] 20:49:00 20:49:00 2019-11-09 2019-11-09 Outpatient [facility] [id number] [facility] 08:51:00 08:51:00 2019-09-12 2019-09-12 Emergency MUÑOZ, [facility] [id number] [place] 00:00:00 00:00:00 [facility] 2017-11-18 2017-11-20 Inpatient C AMIE, [facility] [id number] St. 13:43:00 13:54:00 [facility] 2017-11-07 2017-11-07 Emergency E [facility] [id number] [facility] 20:22:00 20:22:00 [facility] 2017-10-06 2017-10-06 Emergency E ELIANA, [facility] [id number] St[address] 14:25:00 14:25:00 NEEL [facility] Results Test Description Test Time Test [...] 2.5-3.5 for patients with mechanical heart valves.SARS-COV2/RT-PCR ([facility]) 2021-07-19 20:41:44 Test Item Value Reference Range Interpretation Comments SARS-COV2/RT-PCR (test code = Negative Negative [id number]) Negative result for this test determines that [...] the Chairez SARS-CoV-2 assay.Fact Sheet for Healthcare Providers:https://www.molecular.chairez/emerita/RT SARS-CoV-2 HCP Fact Sheet 51- 952830.pdfFact Sheet for Healthcare Patients:https://www.Sp[employer] Share.[employer]/emerita/RT SARS-CoV-2 Patient Fact Sheet EN 51-194668A4.pdfHIV1 RNA # Plas RADHA DL=20 2021-07-05 16:15:28 Test Item Value Reference Range Interpretation Comments HIV1 RNA SerPl Ql RADHA+probe NOT DETECTED Not detected (test code = 22630-4) This test utilizes FDA cleared ERICH AmpliPrep/ERICH TaqMan HIV-1 test 2.0 from [employer] which allows quantitation of viral loads between [...] patients with HIV-1 infection. CD4+CD8+ Cells NFr [id number] 13:12:03 Test Item Value Reference Range Interpretation Comments T-cell CD4 subset 480 cells/uL See_Comment [Automate d message] pnl Bld (test code The syste m which = 58576-5) generated this result transmitted ref erence range: 431-1,62 3. The reference range was not used to interpr et this result as normal/abnormal . CD3+CD4+ 1.54 ratio 0.86-2.05 Cells/CD3+CD8+ Cells Bld (test code = 06893-2) CD4+CD8+ Cells NFr 40.0 % 25.0-56.0 Bld (test code = 49893-4) RPR [id number]-[id number] 14:32:36 Test Item Value Reference Range Interpretation Comments T pallidum Ab Ser Ql Aggl (test NEGATIVE Negative, Equivocal code = 17663-2) Reagin+T pallidum IgG+IgM NEGATIVE Negative SerPl-Imp (test code = 62668-7) AG HEPATITIS B [id number] 11:26:00 Test Item Value Reference Range Interpretation Comments AG HEPATITIS B SURFACE (test NEGATIVE SCREEN NEGATIVE code = HBSAG) AB HEPATITIS A [id number] 03:08:00 Test Item Value Reference Range Interpretation Comments AB HEPATITIS A IGM (test code = HAVMAB) AB HEPATITIS B [id number] 03:08:00 Test Item Value Reference Range Interpretation Comments AB HEPATITIS B SURFACE 96.5 mIU/mL Immunity>9.9 Sta tus of Immunity (test code = HBSAB) Anti-HBs Level --- I ncons istent with Imm unity 0.0 - 9.9Consis tent with Immunity >9.9 AB HEPATITIS A [id number] 03:08:00 Test Item Value Reference Range Interpretation Comments AB HEPATITIS A IGM Negative Negative Performed At: (test code = HAVMAB) [facility] [address], [place] [id number] lauren Chapman MD Ph:[phone] AB HEPATITIS B [id number] 03:08:00 Test Item Value Reference Range Interpretation Comments AB HEPATITIS B SURFACE 96.5 mIU/mL Immunity>9.9 Sta tus of Immunity (test code = HBSAB) Anti-HBs Level --- I ncons istent with Imm unity 0.0 - 9.9Consis tent with Immunity >9.9 COVID 19 Asymptomatic IH [id number] 09:05:00 Test Item Value Reference Range Interpretation [...] in Respiratory specimen by RADHA with probe [id number] 10:30:29 Test Item Value Reference Range Interpretation Comments SARS-CoV-2 (COVID-19) RNA Not detected Not-Detected [Presence] in Respiratory specimen by RADHA with probe detection (test code = 41346-7) SARS-CoV-2 (COVID-19) RNA [Presence] in Respiratory specimen by RADHA with probe [id number] 18:12:42 Test Item Value Reference Range Interpretation Comments SARS-CoV-2 (COVID-19) RNA Not detected Not-Detected [Presence] in Respiratory specimen by RADHA with probe detection (test code = 04734-8) SARS-CoV-2 (COVID-19) RNA [Presence] in Respiratory specimen by RADHA with probe [id number] 12:55:22 Test Item Value Reference Range Interpretation Comments SARS-CoV-2 (COVID-19) RNA Not detected Not-Detected [Presence] in Respiratory specimen by RADHA with probe detection (test code = 04333-0) SARS-CoV-2 (COVID-19) RNA [Presence] in Respiratory specimen by RADHA with probe [id number] 23:46:30 Test Item Value Reference Range Interpretation Comments SARS-CoV-2 (COVID-19) RNA Not detected Not-Detected [Presence] in Respiratory specimen by RADHA with probe detection (test code = 75885-2) TROPONIN [id number] 23:28:00 Test Item Value Reference Range Interpretation [...] failure, acidosis, acute neurological disease, and persistent tachyarrhythmia.Seo Specialist JOSE GALLARDOASIC METABOLIC [id number] 23:26:00 Test Item Value Reference Range Interpretation [...] S NOT APPLICABLE FOR DIALYSIS PATIEN TS. Seo Specialist ID Patel ODEN LB-TYPE NATRIURETIC FACTOR (BNP)2020-04-21 23:25:00 Test Item Value Reference Range Interpretation Comments B-TYPE NATRIURETIC PEPTIDE 1507 pg/mL 0-100 H (BEAKER) (test code = 700) Seo Specialist ID Patel ODEN LPT/[id number] 23:09:00 Test Item Value Reference Range Interpretation [...] mechanical heart valves.CBC W/PLT COUNT & AUTO [id number] 22:49:00 Test Item Value Reference Range Interpretation [...] (test code = 2801) RAD, CHEST, 2 [id number] 22:26:00Reason for exam:->SHORTNESS OF BREATH FINAL REPORT [...] Edenilson Gutierrez Verified Date/Time: 04/21/2020 22:26:38 POCT-GLUCOSE [id number] 15:36:00 Test Item Value Reference Range Interpretation Comments POC-GLUCOSE METER 133 mg/dL 70-110 H : TESTED A T [facility] 6720 (BEAKER) (test code = [facility] [employer] [facility], 1538) 80704: Seo Specialist/Techni kush ID = [id number] for Wi lliams, Areiona POCT-GLUCOSE [id number] 12:38:00 Test Item Value Reference Range Interpretation Comments POC-GLUCOSE METER 100 mg/dL 70-110 : TESTED A T [facility] 6720 (BEAKER) (test code = [facility], 1538) 07701: Seo Specialist/Techni kush ID = [id number] for Phyllis Rao [id number] 09:28:00 Test Item Value Reference Range Interpretation Comments PARTIAL THROMBOPLASTIN TIME 67.8 seconds 22.5-36.0 H (BEAKER) (test code = 760) [id number] 07:14:00 Test Item Value Reference Range Interpretation Comments PARTIAL THROMBOPLASTIN TIME 146.9 seconds 22.5-36.0 H (BEAKER) (test code = 760) CBC W/PLT COUNT & AUTO [id number] 05:40:00 Test Item Value Reference Range Interpretation [...] (BEAKER) (test code = 2801) BASIC METABOLIC [id number] 05:24:00 Test Item Value Reference Range Interpretation [...] S NOT APPLICABLE FOR DIALYSIS PATIEN TS. Seo Specialist ID - LORENZO WPROTHROMBIN TIME/[id number] 04:52:00 Test Item Value Reference Range Interpretation [...] H : TESTED A T [facility] 6720 ([employer]) (test code = [facility], 1538) 86912: Seo Specialist/Techni kush ID = [id number] for KATIA RAO [id number] 21:05:00 Test Item Value Reference Range Interpretation Comments PARTIAL THROMBOPLASTIN TIME 66.8 seconds 22.5-36.0 H (BEAKER) (test code = 760) [id number] 19:49:00 Test Item Value Reference Range Interpretation Comments PARTIAL THROMBOPLASTIN TIME > seconds 22.5-36.0 HH (BEAKER) (test code = 760) POCT-GLUCOSE [id number] 17:09:00 Test Item Value Reference Range Interpretation Comments POC-GLUCOSE METER 145 mg/dL 70-110 H : TESTED A T [facility] 6720 ([employer]) (test code = [facility], 1538) 12603: Seo Specialist/Techni kush ID = [id number] for Christina Chisholm POCT-GLUCOSE [id number] 12:10:00 Test Item Value Reference Range Interpretation Comments POC-GLUCOSE METER 113 mg/dL 70-110 H : TESTED A T [facility] 6720 ([employer]) (test code = [facility], 1538) 23114: Seo Specialist/Techni kush ID = [id number] for Eugenia Chisholmia [id number] 11:50:00 Test Item Value Reference Range Interpretation Comments PARTIAL THROMBOPLASTIN TIME 96.6 seconds 22.5-36.0 H (BEAKER) (test code = 760) POCT-GLUCOSE [id number] 08:28:00 Test Item Value Reference Range Interpretation Comments POC-GLUCOSE METER 150 mg/dL 70-110 H : TESTED A T [facility] 6720 ([employer]) (test code = [facility], 1538) 61137: Seo Specialist/Techni kush ID = [id number] for Christina Chisholm BASIC METABOLIC [id number] 06:15:00 Test Item Value Reference Range Interpretation [...] S NOT APPLICABLE FOR DIALYSIS PATIEN TS. Seo Specialist ID - BSCBC W/PLT COUNT & AUTO [id number] 06:12:00 Test Item Value Reference Range Interpretation [...] 0-1 PERCENT (BEAKER) (test code = 2801) [id number] 05:43:00 Test Item Value Reference Range Interpretation Comments PARTIAL THROMBOPLASTIN TIME 61.8 seconds 22.5-36.0 H (BEAKER) (test code = 760) PROTHROMBIN TIME/[id number] 05:42:00 Test Item Value Reference Range Interpretation [...] mg/dL 70-110 H : TESTED Ev Wade [facility] 6720 (BEAKER) (test code = [facility], 1538) 44862: Seo Specialist/Techni kush ID = [id number] for AN BENITA ERNANDEZ [id number] 22:49:00 Test Item Value Reference Range Interpretation Comments PARTIAL THROMBOPLASTIN TIME 86.0 seconds 22.5-36.0 H (BEAKER) (test code = 760) [id number] 15:29:00 Test Item Value Reference Range Interpretation [...] INR is2.5-3.5 for patients wiht mechanical heart valves.[id number] 15:29:00 Test Item Value Reference Range Interpretation Comments PARTIAL THROMBOPLASTIN TIME 90.0 seconds 22.5-36.0 H (BEAKER) (test code = 760) BASIC METABOLIC [id number] 12:20:00 Test Item Value Reference Range Interpretation [...] S NOT APPLICABLE FOR DIALYSIS PATIEN TS. Seo Specialist ID - ANTONIA FCBC W/PLT COUNT & AUTO [id number] 07:29:00 Test Item Value Reference Range Interpretation [...] 0-1 PERCENT (BEAKER) (test code = 2801) [id number] 07:20:00 Test Item Value Reference Range Interpretation Comments PARTIAL THROMBOPLASTIN TIME 61.2 seconds 22.5-36.0 H (BEAKER) (test code = 760) While on warfarin.BASIC METABOLIC [id number] 07:06:00 Test Item Value Reference Range Interpretation [...] S NOT APPLICABLE FOR DIALYSIS PATIEN TS. Seo Specialist ID - ANTONIA FPROTHROMBIN TIME/[id number] 06:37:00 Test Item Value Reference Range Interpretation [...] for patients wiht mechanical heart valves.While on warfarin.[id number] 23:03:00 Test Item Value Reference Range Interpretation Comments PARTIAL THROMBOPLASTIN TIME 54.4 seconds 22.5-36.0 H (BEAKER) (test code = 760) POCT-GLUCOSE [id number] 22:30:00 Test Item Value Reference Range Interpretation Comments POC-GLUCOSE METER 96 mg/dL 70-110 : TESTED A T [facility] 6720 (BEAKER) (test code = [facility], 1538) 72343: Seo Specialist/Techni kush ID = [id number] for BENITA MASSEY POCT-GLUCOSE [id number] 15:59:00 Test Item Value Reference Range Interpretation Comments POC-GLUCOSE METER 133 mg/dL 70-110 H : TESTED A T [facility] 6720 (BEAKER) (test code = [facility], 1538) [id number]: Seo Specialist/Techni kush ID = [id number] for Wi lliams, Areiona [id number] 15:38:00 Test Item Value Reference Range Interpretation Comments PARTIAL THROMBOPLASTIN TIME 88.8 seconds 22.5-36.0 H (BEAKER) (test code = 760) POCT-GLUCOSE [id number] 12:08:00 Test Item Value Reference Range Interpretation Comments POC-GLUCOSE METER 130 mg/dL 70-110 H : TESTED A T [facility] 6720 (BEAKER) (test code = [facility], 1538) [id number]: Seo Specialist/Techni kush ID = [id number] for Wi lliams, Areiona PROTHROMBIN [id number] 11:48:00 Test Item Value Reference Range Interpretation [...] INR is2.5-3.5 for patients wiht mechanical heart valves.[id number] 09:34:00 Test Item Value Reference Range Interpretation Comments PARTIAL THROMBOPLASTIN TIME 74.6 seconds 22.5-36.0 H (BEAKER) (test code = 760) CBC W/PLT COUNT & AUTO [id number] 01:34:00 Test Item Value Reference Range Interpretation [...] (BEAKER) (test code = 2801) BASIC METABOLIC [id number] 01:29:00 Test Item Value Reference Range Interpretation [...] S NOT APPLICABLE FOR DIALYSIS PATIEN TS. Seo Specialist ID - PIAYA [id number] 01:13:00 Test Item Value Reference Range Interpretation Comments PARTIAL THROMBOPLASTIN TIME 56.4 seconds 22.5-36.0 H (BEAKER) (test code = 760) POCT-GLUCOSE [id number] 23:59:00 Test Item Value Reference Range Interpretation Comments POC-GLUCOSE METER 134 mg/dL 70-110 H : TESTED A T [facility] 6720 (BEAKER) (test code = [facility], 1538) [address]: Seo Specialist/Techni kush ID = [id number] for SCOOTER MIRZA [id number] 18:52:00 Test Item Value Reference Range Interpretation Comments PARTIAL THROMBOPLASTIN TIME 47.3 seconds 22.5-36.0 H (BEAKER) (test code = 760) [id number] 18:18:00 Test Item Value Reference Range Interpretation Comments PARTIAL THROMBOPLASTIN TIME > seconds 22.5-36.0 HH (BEAKER) (test code = 760) POCT-GLUCOSE [id number] 18:15:00 Test Item Value Reference Range Interpretation Comments POC-GLUCOSE METER 143 mg/dL 70-110 H : TESTED A T [facility] 6720 (BEAKER) (test code = [facility], 1538) 00047: Seo Specialist/Techni kush ID = [id number] for DO BBINS, RANDI POCT-GLUCOSE [id number] 12:15:00 Test Item Value Reference Range Interpretation Comments POC-GLUCOSE METER 123 mg/dL 70-110 H : TESTED A T [facility] 6720 (BEAKER) (test code = [facility], 1538) [address]: Seo Specialist/Techni kush ID = [id number] for DO BBINS, RANDI [id number] 11:28:00 Test Item Value Reference Range Interpretation Comments PARTIAL THROMBOPLASTIN TIME 57.3 seconds 22.5-36.0 H (BEAKER) (test code = 760) POCT-GLUCOSE [id number] 06:49:00 Test Item Value Reference Range Interpretation Comments POC-GLUCOSE METER 86 mg/dL 70-110 : TESTED A T [facility] 6720 (BEAKER) (test code = [facility], 1538) 13762: Seo Specialist/Techni kush ID = [id number] for SCOOTER MAYA BASIC METABOLIC [id number] 06:19:00 Test Item Value Reference Range Interpretation [...] S NOT APPLICABLE FOR DIALYSIS PATIEN TS. Seo Specialist ID - PIAYA LCBC W/PLT COUNT & AUTO [id number] 04:57:00 Test Item Value Reference Range Interpretation [...] PERCENT (BEAKER) (test code = 2801) POCT-GLUCOSE [id number] 02:25:00 Test Item Value Reference Range Interpretation Comments POC-GLUCOSE METER 69 mg/dL 70-110 L : TESTED A T [facility] 6720 (BEAKER) (test code = [facility], 1538) [address]11[address]: Seo Specialist/Techni kush ID = [id number] for KEIT H, RADHA FL, FLUORO, NON-SPECIFIC, UP TO 1 [id number] 01:47:00Reason for exam:- >orif right femurFluoroscopic unit utilized for a procedure performed in the OR. No interpretation was requested. Refer to the operative report for findings. Refer to PACS for patient radiation dose information.[id number] 20:21:00 Test Item Value Reference Range Interpretation Comments PARTIAL THROMBOPLASTIN TIME 41.1 seconds 22.5-36.0 H (BEAKER) (test code = 760) 6 hours after starting heparin infusion and as indicated per sliding scalePOCT- GLUCOSE [id number] 17:57:00 Test Item Value Reference Range Interpretation Comments POC-GLUCOSE METER 82 mg/dL 70-110 : TESTED A T [facility] 6720 (BEAKER) (test code = [facility] [place], 1538) [address]: Seo Specialist/Techni kush ID = [id number] for ALMA DELIA PATHAK [id number] 17:14:00 Test Item Value Reference Range Interpretation Comments FERRITIN (BEAKER) (test code = 5182.19 ng/mL 5.00-275.00 H 361) Seo Specialist ID - JOEL WIRON, TIBC, % SAT. (WITHOUT FERRITIN)2020-02-27 16:01:00 Test Item Value Reference Range Interpretation Comments IRON (BEAKER) (test code = 547) 125.0 ug/dL 40.0-160.0 TOTAL IRON BINDING CAPACITY 219 ug/dL 250-450 L (BEAKER) (test code = 769) IRON % SATURATION (2) (BEAKER) 57 % 20-55 H (test code = 2590) Seo Specialist ID - JOEL [id number] 12:54:00 Test Item Value Reference Range Interpretation Comments PARTIAL THROMBOPLASTIN TIME 41.5 seconds 22.5-36.0 H (BEAKER) (test code = 760) Prior to initiating heparinPLATELET [id number] 12:51:00 Test Item Value Reference Range Interpretation Comments PLATELET COUNT (BEAKER) (test 116 K/CU MM 150-450 L code = 756) Seo Specialist ID - Anibal clotSARS-COV2/RT-PCR ([facility])2020-02-27 12:46:00 Test Item Value Reference Range Interpretation Comments SARS-COV2/RT-PCR (test code = Negative Not Detected, Negative [id number]) SARS-COV-2 PERFORMING LAB [facility] (test code = 0895748) Negative result for this test determines that [...] 564(g) of the Act.Fact Sheet for Healthcare Providers:https://www.Snap[employer]ointments.[employer]/sites/default/files/product/documents/Fact_Shee w_ZT_Qchzidwrv_Cixg_IPKZ-WzL-2.pdfFact Sheet for Healthcare Patients:https://www.[employer]apAppointments.[employer]/sites/default/files/product/ documents/Ibsi_Beien_Rpepfkqo_Ycda_ZJRG-GkL-4.pdfPerforming Laboratory:[facility], [place] [address]HHGP-OHSAGFH METER 2020-02-27 12:12:00 Test Item Value Reference Range Interpretation Comments POC-GLUCOSE METER 90 mg/dL 70-110 : TESTED A T [facility] 6720 (GAELZOILA) (test code = [facility], 1538) 28774: Seo Specialist/Techni kush ID = [id number] for SELENA BIRCH HEPATITIS B SURFACE [id number] 11:32:00 Test Item Value Reference Range Interpretation Comments HEPATITIS B SURFACE ANTIGEN (2) Nonreactive Nonreactive (BEAKER) (test code = 2585) Specimen is considered negative for HBsAg.RAD, WRIST, 2 VIEWS, [id number] 09:19:00Reason for exam:->fall, immbolityFINAL REPORT TECHNIQUE: Frontal, oblique, and lateral views of the left wrist. INDICATION: Fall immobility. COMPARISON: None. FINDINGS:No acute fractures or dislocations.Joint spaces are within normal limits.There are atherosclerotic calcifications of the vessels. Surgical clipsproject over the distal radius.. IMPRESSION:No acute osseous abnormality. Signed: Bhavin Artis Verified Date/Time: 02/27/2020 09:19:08 Reading Location: [address] Body ReadingRoom [id number] 08:30:00 Test Item Value Reference Range Interpretation Comments POTASSIUM (BEAKER) (test code = 5.0 meq/L 3.5-5.1 379) Seo Specialist ID - PIAYA LRAD, PELVIS, 1 OR 2 [id number] 07:23:00Reason for exam:->femoral neck fxFINAL REPORT RAD, [...] Lisa Verified Date/Time: 02/27/2020 07:23:52 Reading Location: [place] [id number] Neuro Reading Room RAD, HIP, 2 VIEWS, [id number] 07:23:00Reason for exam:- >femoral neck fractureFINAL REPORT [...] and ileoileal lines are intact. Signed: Radha Lisaeport Verified Date/Time: 02/27/2020 07:23:52 Reading Location: [facility] C013V Neuro Reading Room POCT-GLUCOSE [id number] 06:26:00 Test Item Value Reference Range Interpretation Comments POC-GLUCOSE METER 72 mg/dL 70-110 : [facility] (BEAKER) (test code = [facility] [place], 1538) [address]: Seo Specialist/Techni kush ID = [id number] for SCOOTER MAYA COMPREHENSIVE METABOLIC [id number] 02:44:00 Test Item Value Reference Range Interpretation [...] S NOT APPLICABLE FOR DIALYSIS PATIEN TS. Seo Specialist ID - AKSHAT LPROTHROMBIN TIME/[id number] 02:03:00 Test Item Value Reference Range Interpretation [...] INR is2.5-3.5 for patients wiht mechanical heart valves.[id number] 01:56:00 Test Item Value Reference Range Interpretation Comments PHOSPHORUS (BEAKER) (test code = 7.3 mg/dL 2.3-4.7 H 604) Seo Specialist ID - AKSHAT [id number] 01:56:00 Test Item Value Reference Range Interpretation Comments MAGNESIUM (BEAKER) (test code = 1.9 mg/dL 1.6-2.6 627) Seo Specialist ID - AKSHAT LCBC W/PLT COUNT & AUTO [id number] 01:33:00 Test Item Value Reference Range Interpretation [...] (test code = 2801) AFB CULTURE + [id number] 07:33:00 Test Item Value Reference Range Interpretation Comments CULTURE (BEAKER) (test No acid-fast bacilli code = 1095) isolated in 42 days AFB SMEAR (BEAKER) No acid fast bacilli (test code = 994) seen FUNGUS CULTURE + [id number] 17:26:00 Test Item Value Reference Range Interpretation Comments CULTURE (BEAKER) (test No fungus isolated in code = 1095) 28 days FUNGUS SMEAR (BEAKER) No fungi seen (test code = 1406) PROTHROMBIN [id number] 00:05:00 Test Item Value Reference Range Interpretation Comments PT PATIENT (test code = PTP) 18.2 SECONDS 9.3-12.9 H INTERNATIONAL NORMAL RATIO 1.57 INR Unit 0.8-1.2 H (test code = INR) POCT-GLUCOSE [id number] 13:35:00 Test Item Value Reference Range Interpretation Comments POC-GLUCOSE METER 116 mg/dL 70-110 H TESTED AT [facility] 67 ([facility]) (test code = [facility] 1538) [address] POCT-GLUCOSE [id number] 08:54:00 Test Item Value Reference Range Interpretation Comments POC-GLUCOSE METER 99 mg/dL 70-110 TESTED AT [facility] 6720 ([facility]) (test code = [facility] [address] 1538) [id number] 06:34:00 Test Item Value Reference Range Interpretation Comments PARTIAL THROMBOPLASTIN TIME 46.7 seconds 22.5-36.0 H (AKER) (test code = 760) While on warfarin.PROTHROMBIN TIME/[id number] 06:33:00 Test Item Value Reference Range Interpretation [...] H (BEAKER) (test code = 413) POCT-GLUCOSE [id number] 21:38:00 Test Item Value Reference Range Interpretation Comments POC-GLUCOSE METER 192 mg/dL 70-110 H TESTED AT [facility] 6720 (BEAKER) (test code = [facility] 1538) [address] POCT-GLUCOSE [id number] 13:01:00 Test Item Value Reference Range Interpretation Comments POC-GLUCOSE METER 200 mg/dL 70-110 H TESTED AT [facility] 6720 ([facility]) (test code = [facility] [place] 1538) [address] POCT-GLUCOSE [id number] 08:00:00 Test Item Value Reference Range Interpretation Comments POC-GLUCOSE METER 123 mg/dL 70-110 H TESTED AT [facility] 6720 ([facility]) (test code = [facility] [place] 1538) [address] [id number] 06:40:00 Test Item Value Reference Range Interpretation Comments PARTIAL THROMBOPLASTIN TIME 83.1 seconds 22.5-36.0 H ([facility]) (test code = 760) [id number] 05:54:00 Test Item Value Reference Range Interpretation Comments PARTIAL THROMBOPLASTIN TIME > seconds 22.5-36.0 HH ([facility]) (test code = 760) PROTHROMBIN TIME/[id number] 05:30:00 Test Item Value Reference Range Interpretation Comments PROTIME ([facility]) (test code = 24.1 seconds 11.7-14.7 H 759) INR ([facility]) (test code = 370) 2.3 [...] (BEAKER) (test code = 413) BASIC METABOLIC [id number] 05:10:00 Test Item Value Reference Range Interpretation [...] 697) EGFR (BEAKER) (test 15 mL/min/1.73 ESTIMA JYALA GFR IS code = 1092) sq m NOT ACCURATE CREATININE CLEARANCE IN PREDICTING GLOMERULAR FILTRATION RATE . ESTIMATED GFR I S NOT APPLICABLE FOR DIALYSIS PATIEN TS. OCCULT BLOOD, [id number] 23:46:00 Test Item Value Reference Range Interpretation Comments FECAL OCCULT BLOOD (BEAKER) (test Negative Negative code = 618) POCT-GLUCOSE [id number] 22:52:00 Test Item Value Reference Range Interpretation Comments POC-GLUCOSE METER 192 mg/dL 70-110 H TESTED AT [facility] 6720 (BEAKER) (test code = [facility] [place] 1538) [address] POCT-GLUCOSE [id number] 17:11:00 Test Item Value Reference Range Interpretation Comments POC-GLUCOSE METER 149 mg/dL 70-110 H TESTED AT [place] [address] ([facility]) (test code = [facility] 1538) [address] PROTHROMBIN TIME/[id number] 13:00:00 Test Item Value Reference Range Interpretation Comments PROTIME ([facility]) (test code = 19.9 seconds 11.7-14.7 H 759) INR ([facility]) (test code = 370) 1.8 <=5.9 RECOMMENDED COUMADIN/WARFARIN INR THERAPY RANGESSTANDARD DOSE: 2.0 - 3.0 Includes: PROPHYLAXIS forvenous thrombosis, systemic embolization; TREATMENT for venous thrombosis and/or pulmonary embolus.HIGH RISK: Target INR is 2.5-3.5 for patients with mechanical heart valves.While on warfarin.POCT-GLUCOSE METER 2019-01-04 12:14:00 Test Item Value Reference Range Interpretation Comments POC-GLUCOSE METER 134 mg/dL 70-110 H TESTED AT [place] [address] ([facility]) (test code = [facility] 1538) [address] RAD, CHEST, 1 VIEW, NON [id number] 08:02:00Reason for exam:->Post opShould this be performed [...] place. IMPRESSION: No interval change. Signed: Edenilson Bloomeport Verified Date/Time: 01/04/2019 08:02:18 Reading Location: [facility] C013W Consult Reading Room Electronicallysigned by: EDENILSON BLOOM M.D. on 01/04/2019 08:02 AMPOCT-GLUCOSE [id number] 07:42:00 Test Item Value Reference Range Interpretation Comments POC-GLUCOSE METER 98 mg/dL 70-110 TESTED AT [place] [address] ([facility]) (test code = [facility] [address] 1538) BASIC METABOLIC [id number] 07:28:00 Test Item Value Reference Range Interpretation [...] CELLS 1 /100 WBC 0-0 H ([facility]) (test code = 413) [id number] 06:08:00 Test Item Value Reference Range Interpretation Comments PARTIAL THROMBOPLASTIN TIME 70.6 seconds 22.5-36.0 H ([facility]) (test code = 760) [id number] 23:32:00 Test Item Value Reference Range Interpretation Comments PARTIAL THROMBOPLASTIN TIME 77.2 seconds 22.5-36.0 H ([facility]) (test code = 760) POCT-GLUCOSE [id number] 21:55:00 Test Item Value Reference Range Interpretation Comments POC-GLUCOSE METER 150 mg/dL 70-110 H TESTED AT [facility] 6720 ([facility]) (test code = [facility] [place] [id number]) [address] [id number] 18:25:00 Test Item Value Reference Range Interpretation Comments PARTIAL THROMBOPLASTIN TIME 71.2 seconds 22.5-36.0 H ([facility]) (test code = 760) POCT-GLUCOSE [id number] 13:45:00 Test Item Value Reference Range Interpretation Comments POC-GLUCOSE METER 375 mg/dL 70-110 H Notified R Toy PÉREZ/TESTED ([facility]) (test code = AT [facility] 67[address] [place] [address]) [facility] [address] 0 [id number] 10:26:00 Test Item Value Reference Range Interpretation Comments PARTIAL THROMBOPLASTIN TIME 94.0 seconds 22.5-36.0 H ([facility]) (test code = 760) While on warfarin.PROTHROMBIN TIME/[id number] 10:24:00 Test Item Value Reference Range Interpretation Comments PROTIME ([facility]) (test code = 19.3 seconds 11.7-14.7 H 759) INR ([facility]) (test code = 370) 1.7 [...] (test code = [facility] [place] 1538) [address] RAD, CHEST, 1 VIEW, NON [id number] 08:19:00Reason for exam:->Post opShould this be performed [...] Lisa Verified Date/Time: 01/03/2019 08:19:51 Reading Location: [address] Neuro Reading Room [id number] 03:31:00 Test Item Value Reference Range Interpretation Comments PARTIAL THROMBOPLASTIN TIME 64.2 seconds 22.5-36.0 H (BEAKER) (test code = 760) BASIC METABOLIC [id number] 03:21:00 Test Item Value Reference Range Interpretation [...] H (BEAKER) (test code = 413) POCT-GLUCOSE [id number] 22:54:00 Test Item Value Reference Range Interpretation Comments POC-GLUCOSE METER 206 mg/dL 70-110 H TESTED AT [facility] 6720 ([facility]) (test code = [facility] 1538) [address] [id number] 19:36:00 Test Item Value Reference Range Interpretation Comments PARTIAL THROMBOPLASTIN TIME 79.3 seconds 22.5-36.0 H (AKER) (test code = 760) POCT-GLUCOSE [id number] 17:59:00 Test Item Value Reference Range Interpretation Comments POC-GLUCOSE METER 186 mg/dL 70-110 H TESTED AT [facility] 6720 ([facility]) (test code = [facility] 1538) [address] POCT-GLUCOSE [id number] 13:54:00 Test Item Value Reference Range Interpretation Comments POC-GLUCOSE METER 139 mg/dL 70-110 H TESTED AT [facility] 6720 ([facility]) (test code = [facility] 1538) [address] POCT-GLUCOSE [id number] 13:05:00 Test Item Value Reference Range Interpretation Comments POC-GLUCOSE METER 163 mg/dL 70-110 H TESTED AT [facility] 6720 ([facility]) (test code = [facility] 1538) [address] [id number] 12:49:00 Test Item Value Reference Range Interpretation Comments PARTIAL THROMBOPLASTIN TIME 64.9 seconds 22.5-36.0 H ([facility]) (test code = 760) OCCULT BLOOD, [id number] 12:31:00 Test Item Value Reference Range Interpretation Comments FECAL OCCULT BLOOD ([facility]) (test Negative Negative code = 618) RAD, CHEST, 1 VIEW, NON [id number] 10:37:00Reason for exam:->Post opShould this be performed [...] change. Signed: Sarah Beth Mejiaeport Verified Date/Time: 01/02/2019 10:37:35 Reading Loc ation: [facility]iology Reading Room POCT-GLUCOSE [id number] 08:07:00 Test Item Value Reference Range Interpretation Comments POC-GLUCOSE METER 107 mg/dL 70-110 TESTED AT [facility] 6720 (BEAKER) (test code = [facility] 1538) [address] [id number] 04:48:00 Test Item Value Reference Range Interpretation Comments PARTIAL THROMBOPLASTIN TIME 106.0 seconds 22.5-36.0 H (BEAKER) (test code = 760) While on warfarin.BASIC METABOLIC [id number] 04:48:00 Test Item Value Reference Range Interpretation [...] NOT APPLICABLE FOR DIALYSIS PATIEN TS. PROTHROMBIN [id number] 04:39:00 Test Item Value Reference Range Interpretation [...] 0-0 (BEAKER) (test code = 413) POCT-GLUCOSE [id number] 22:17:00 Test Item Value Reference Range Interpretation Comments POC-GLUCOSE METER 117 mg/dL 70-110 H TESTED AT [facility] 6720 (BEAKER) (test code = [facility] [place] 1538) [address] RAD, CHEST, 1 VIEW, NON [id number] 19:40:00Reason for exam:->Post opShould this be performed [...] MDReport Verified Date/Time: 01/01/2019 19:40:01 Reading Location: [facility] B1 C013W Consult Reading Room POCT-GLUCOSE [id number] 18:22:00 Test Item Value Reference Range Interpretation Comments POC-GLUCOSE METER 159 mg/dL 70-110 H TESTED AT [facility] 6720 (BEAKER) (test code = [facility] [employer] [facility] 1538) [address] POCT-GLUCOSE [id number] 14:12:00 Test Item Value Reference Range Interpretation Comments POC-GLUCOSE METER 135 mg/dL 70-110 H TESTED AT [place] [address] ([facility] (test code = [facility] 1538) [address] HEPATITIS B SURFACE [id number] 11:52:00 Test Item Value Reference Range Interpretation Comments HEPATITIS B SURFACE ANTIGEN (2) Nonreactive Nonreactive (BEAKER) (test code = 2585) POCT-GLUCOSE [id number] 08:40:00 Test Item Value Reference Range Interpretation Comments POC-GLUCOSE METER 85 mg/dL 70-110 TESTED AT [place] [address] (BEAKER) (test code = [employer] [facility] [address] 1538) BASIC METABOLIC [id number] 04:17:00 Test Item Value Reference Range Interpretation [...] S NOT APPLICABLE FOR DIALYSIS PATIEN TS. [id number] 03:40:00 Test Item Value Reference Range Interpretation Comments PARTIAL THROMBOPLASTIN TIME 84.1 seconds 22.5-36.0 H (BEAKER) (test code = 760) While on warfarin.PROTHROMBIN TIME/[id number] 03:39:00 Test Item Value Reference Range Interpretation [...] 0-0 (BEAKER) (test code = 413) POCT-GLUCOSE [id number] 22:08:00 Test Item Value Reference Range Interpretation Comments POC-GLUCOSE METER 194 mg/dL 70-110 H TESTED AT [place] [address] ([facility]) (test code = [facility] 1538) [address] POCT-GLUCOSE [id number] 22:03:00 Test Item Value Reference Range Interpretation Comments POC-GLUCOSE METER 203 mg/dL 70-110 H TESTED AT [place] [address] ([facility]) (test code = [facility] 1538) [address] POCT-GLUCOSE [id number] 21:42:00 Test Item Value Reference Range Interpretation Comments POC-GLUCOSE METER 42 mg/dL 70-110 L TESTED AT [place] [address] ([facility]) (test code = [facility] [address] 1538) [id number] 21:35:00 Test Item Value Reference Range Interpretation Comments PARTIAL THROMBOPLASTIN TIME 80.4 seconds 22.5-36.0 H ([facility]) (test code = 760) POCT-GLUCOSE [id number] 18:03:00 Test Item Value Reference Range Interpretation Comments POC-GLUCOSE METER 144 mg/dL 70-110 H TESTED AT [place] [address] ([facility]) (test code = [facility] 1538) [address] TISSUE [id number] 16:33:00Surgical Pathology Report Case: [id number] Authorizing Provider: Enmanuel Sharma Collected: 12/26/2018 1537 MD Liban OrderingLocation: [address] Received: 12/29/2018 0814 Service Pathologist: Brigida [...] stains. GMSImmunohistochemistry technical testing was performed at [facility], Pathology Laboratory where it was developed [...] toperform high complexity clinical laboratory testing.CPT CODE: [id number] electronically signed by Brigida Parks MD on [...] ARE NEGATIVE Signing Pathologist Direct Phone Line: [phone] signed by Brigida Parks MD on 12/30/2018 at 6:43 PMPreliminary result electronically signed by Brigida Parks MD on 12/29/2018 at 4:54 [id number] X 2; 74626; 92759; 75234 X 2Upper endoscopy, biopsyPreoperative and postoperative diagnosis: [...] the use of immunohistochemistry or special stains. REMEDIOS-STARRY; HSV I; HSVII AND CMVImmunohistochemistry technical testing was performed at [facility], Pathology Laboratory where it was developed [...] qualified toperform high complexity clinical laboratory testing.POCT-GLUCOSE [id number] 13:57:00 Test Item Value Reference Range Interpretation Comments POC-GLUCOSE METER 178 mg/dL 70-110 H TESTED AT [place] [address] ([facility]) (test code = [facility] [place] 1538) [address] [id number] 12:54:00 Test Item Value Reference Range Interpretation Comments PARTIAL THROMBOPLASTIN TIME 69.4 seconds 22.5-36.0 H ([facility]) (test code = 760) RAD, CHEST, 1 VIEW, NON [id number] 09:26:00Reason for exam:->Post opShould this be performed [...] MDReport Verified Date/Time: 12/31/2018 09:26:31 Reading Location: [facility] Radiology Reading Room POCT-GLUCOSE [id number] 09:01:00 Test Item Value Reference Range Interpretation Comments POC-GLUCOSE METER 162 mg/dL 70-110 H TESTED AT [place] [address] ([facility]) (test code = [facility] [place] 1538) [address] BASIC METABOLIC [id number] 06:50:00 Test Item Value Reference Range Interpretation [...] NOT APPLICABLE FOR DIALYSIS PATIEN TS. PROTHROMBIN TIME/[id number] 06:38:00 Test Item Value Reference Range Interpretation Comments PROTIME (BEAKER) (test code = 19.1 seconds 11.7-14.7 H 759) INR (BEAKER) (test code = 370) 1.7 <=5.9 RECOMMENDED COUMADIN/WARFARIN INR THERAPY RANGESSTANDARD DOSE: 2.0 - 3.0 Includes: PROPHYLAXIS forvenous thrombosis, systemic embolization; TREATMENT for venous thrombosis and/or pulmonary embolus.HIGH RISK: Target INR is 2.5-3.5 for patients with mechanical heart valves.While on warfarin.[id number] 06:37:00 Test Item Value Reference Range Interpretation [...] 0-0 (AKER) (test code = 413) POCT-GLUCOSE [id number] 00:45:00 Test Item Value Reference Range Interpretation Comments POC-GLUCOSE METER 124 mg/dL 70-110 H TESTED AT [place] [address] ([facility]) (test code = [place] 1538) [address] [id number] 19:14:00 Test Item Value Reference Range Interpretation Comments PARTIAL THROMBOPLASTIN TIME 57.8 seconds 22.5-36.0 H ([facility]) (test code = 760) POCT-GLUCOSE [id number] 17:53:00 Test Item Value Reference Range Interpretation Comments POC-GLUCOSE METER 133 mg/dL 70-110 H TESTED AT [place] [address] ([facility]) (test code = [place] 1538) [address] POCT-GLUCOSE [id number] 13:19:00 Test Item Value Reference Range Interpretation Comments POC-GLUCOSE METER 147 mg/dL 70-110 H TESTED AT [place] [address] ([facility]) (test code = [place] 1538) [address] [id number] 12:43:00 Test Item Value Reference Range Interpretation Comments PARTIAL THROMBOPLASTIN TIME 57.0 seconds 22.5-36.0 H ([facility]) (test code = 760) [id number] 10:17:00 Test Item Value Reference Range Interpretation Comments PARTIAL THROMBOPLASTIN TIME 134.5 seconds 22.5-36.0 H (BEAKER) (test code = 760) POCT-GLUCOSE [id number] 07:43:00 Test Item Value Reference Range Interpretation Comments POC-GLUCOSE METER 107 mg/dL 70-110 TESTED AT [facility] 6720 (BEAKER) (test code = [place] 1538) [address] BASIC METABOLIC [id number] 06:46:00 Test Item Value Reference Range Interpretation [...] PATIEN TS. RAD, CHEST, 1 VIEW, NON [id number] 06:25:00Reason for exam:->Post opShould this be performed [...] MDReport Verified Date/Time: 12/30/2018 06:25:51 Reading Location: [address] Neuro Reading Room PROTHROMBIN TIME/[id number] 06:06:00 Test Item Value Reference Range Interpretation [...] 0-0 (BEAKER) (test code = 413) POCT-GLUCOSE [id number] 22:19:00 Test Item Value Reference Range Interpretation Comments POC-GLUCOSE METER 179 mg/dL 70-110 H TESTED AT [facility] 67 ([facility]) (test code = [place] [facility] 1538) [address] POCT-GLUCOSE [id number] 17:39:00 Test Item Value Reference Range Interpretation Comments POC-GLUCOSE METER 181 mg/dL 70-110 H TESTED AT [place] [address] ([facility]) (test code = [place] [facility] 1538) [address] POCT-GLUCOSE [id number] 13:14:00 Test Item Value Reference Range Interpretation Comments POC-GLUCOSE METER 102 mg/dL 70-110 TESTED AT [place] [address] ([facility]) (test code = [place] [facility] 1538) [address] RAD, CHEST, 1 VIEW, NON [id number] 08:56:00Reason for exam:->Post opShould this be performed [...] place. IMPRESSION: No interval change. Signed: Edenilson [facility] Verified Date/Time: 12/29/2018 08:56:32 Reading Location: [facility] Radiology Reading Room Electronically signed by: EDENILSON BLOOM M.D.on 12/29/2018 08:56 AMPOCT-GLUCOSE [id number] 07:53:00 Test Item Value Reference Range Interpretation Comments POC-GLUCOSE METER 135 mg/dL 70-110 H TESTED AT [facility] 6720 ([facility]) (test code = [place] [facility] 1538) [address] [id number] 06:45:00 Test Item Value Reference Range Interpretation Comments PARTIAL THROMBOPLASTIN TIME 83.5 seconds 22.5-36.0 H ([facility]) (test code = 760) While on warfarin.PROTHROMBIN TIME/[id number] 06:44:00 Test Item Value Reference Range Interpretation [...] (AKER) (test code = 412) PLATELET COUNT ([facility]) (test 131 K/CU MM 150-450 L code = 756) MEAN PLATELET VOLUME (AKER) 9.1 fL 9.4-12.4 L (test code = 754) NUCLEATED RED BLOOD CELLS 0 /100 WBC 0-0 ([facility]) (test code = 413) [id number] 00:01:00 Test Item Value Reference Range Interpretation Comments PARTIAL THROMBOPLASTIN TIME 78.5 seconds 22.5-36.0 H ([facility]) (test code = 760) POCT-GLUCOSE [id number] 21:26:00 Test Item Value Reference Range Interpretation Comments POC-GLUCOSE METER 139 mg/dL 70-110 H TESTED AT [place] [address] ([facility]) (test code = [place] 1538) [address] POCT-GLUCOSE [id number] 17:58:00 Test Item Value Reference Range Interpretation Comments POC-GLUCOSE METER 146 mg/dL 70-110 H TESTED AT [place] [address] ([facility]) (test code = [place] 1538) [address] [id number] 17:16:00 Test Item Value Reference Range Interpretation Comments PARTIAL THROMBOPLASTIN TIME 34.5 seconds 22.5-36.0 ([facility]) (test code = 760) Prior to initiating heparinPOCT-GLUCOSE [id number] 12:54:00 Test Item Value Reference Range Interpretation Comments POC-GLUCOSE METER 133 mg/dL 70-110 H TESTED AT [place] [address] ([facility]) (test code = [place] 1538) [address] RAD, CHEST, 1 VIEW, NON [id number] 08:06:00Reason for exam:->Post opShould this be performed at the bedside?->YesFINAL REPORT Chest one view. Clinical history: Post op Comparison: 12/27/2018 Discussion: A frontal chest is provided. Cardiomediastinal contours are unchanged. Lines and tubesare in stable position. Unchanged right-sided pleural-parenchymal opacities. Left lung is grossly clear. Vessels do not appear engorged. No pneumothorax. Signed: Dionicio Cheryeport Verified Date/Time: 12/28/2018 08:06:07 Reading Location: [facility] C013V Neuro Reading Room BASIC METABOLIC [id number] 06:52:00 Test Item Value Reference Range Interpretation [...] NOT APPLICABLE FOR DIALYSIS PATIEN TS. PROTHROMBIN TIME/[id number] 06:31:00 Test Item Value Reference Range Interpretation [...] 0-0 (BEAKER) (test code = 413) POCT-GLUCOSE [id number] 21:41:00 Test Item Value Reference Range Interpretation Comments POC-GLUCOSE METER 163 mg/dL 70-110 H TESTED AT [place] [address] ([facility]) (test code = [place] [facility] 1538) [address] POCT-GLUCOSE [id number] 17:23:00 Test Item Value Reference Range Interpretation Comments POC-GLUCOSE METER 119 mg/dL 70-110 H TESTED AT [place] [id number] ([facility]) (test code = MARIA GIL Humberto [facility] 1538) [address] RAD, CHEST, 1 VIEW, NON [id number] 14:49:00Reason for exam:->Post opShould this be performed [...] MDReport Verified Date/Time: 12/27/2018 14:49:48 Reading Location: [facility] C013X Ortho Consult Reading Room ANG, NON-TUNNELED CATH >5 Y.O. [id number] 14:17:00Reason for exam:->Central line placement, poor access, [...] guide wire was advanced centrally. A 7 Burmese 20 cm triple lumen catheter was advanced [...] terminating in the right atrium.Signed: Bonny Sykes MDReport Verified Date/Time: 12/27/2018 14:17:02 Reading Location: [place] [address] Angio Body Reading Room [id number] 13:44:00 Test Item Value Reference Range Interpretation Comments PARTIAL THROMBOPLASTIN TIME 44.3 seconds 22.5-36.0 H (BEAKER) (test code = 760) Prior to initiating heparinPOCT-GLUCOSE [id number] 13:27:00 Test Item Value Reference Range Interpretation Comments POC-GLUCOSE METER 127 mg/dL 70-110 H TESTED AT [place] [address] ([facility]) (test code = [facility] 1538) [address] POCT-GLUCOSE [id number] 08:58:00 Test Item Value Reference Range Interpretation Comments POC-GLUCOSE METER 79 mg/dL 70-110 TESTED AT [place] [address] ([facility]) (test code = [facility] [address] 1538) BASIC METABOLIC [id number] 07:09:00 Test Item Value Reference Range Interpretation [...] NOT APPLICABLE FOR DIALYSIS PATIEN TS. PROTHROMBIN TIME/[id number] 06:52:00 Test Item Value Reference Range Interpretation [...] WBC 0-0 (test code = 413) POCT-GLUCOSE [id number] 23:54:00 Test Item Value Reference Range Interpretation Comments POC-GLUCOSE METER 73 mg/dL 70-110 TESTED AT [facility] 6720 (BEAKER) (test code = [place] [address] 1538) POCT-GLUCOSE [id number] 16:02:00 Test Item Value Reference Range Interpretation Comments POC-GLUCOSE METER 108 mg/dL 70-110 TESTED AT [facility] 6720 (BEAKER) (test code = [place] [facility] 1538) [address] POCT-GLUCOSE [id number] 15:24:00 Test Item Value Reference Range Interpretation Comments POC-GLUCOSE METER 74 mg/dL 70-110 TESTED AT [facility] 6720 (BEAKER) (test code = [place] [facility] [address] 1538) POCT-GLUCOSE [id number] 10:29:00 Test Item Value Reference Range Interpretation Comments POC-GLUCOSE METER 88 mg/dL 70-110 TESTED AT [facility] 6720 (BEAKER) (test code = [place] [facility] [address] 1538) RAD, CHEST, 1 VIEW, NON [id number] 07:33:00Reason for exam:->Post opShould this be performed [...] MDReport Verified Date/Time: 12/26/2018 07:33:38 Reading Location: [facility] Radiology Reading Room BASIC METABOLIC [id number] 06:42:00 Test Item Value Reference Range Interpretation [...] 0-0 H (test code = 413) PROTHROMBIN TIME/[id number] 05:44:00 Test Item Value Reference Range Interpretation Comments PROTIME (BEAKER) (test code = 24.4 seconds 11.7-14.7 H 759) INR (BEAKER) (test code = 370) 2.2 <=5.9 RECOMMENDED COUMADIN/WARFARIN INR THERAPY RANGESSTANDARD DOSE: 2.0 - 3.0 Includes: PROPHYLAXIS forvenous thrombosis, systemic embolization; TREATMENT for venous thrombosis and/or pulmonary embolus.HIGH RISK: Target INR is 2.5-3.5 for patients with mechanical heart valves.POCT-GLUCOSE [id number] 00:06:00 Test Item Value Reference Range Interpretation Comments POC-GLUCOSE METER 88 mg/dL 70-110 TESTED AT [facility] 67 ([facility]) ([facility] [address] 1538) POCT-GLUCOSE [id number] 19:06:00 Test Item Value Reference Range Interpretation Comments POC-GLUCOSE METER 121 mg/dL 70-110 H TESTED AT [place] [address] ([facility]) (test code = [facility] 1538) [address] PROTHROMBIN [id number] 16:10:00 Test Item Value Reference Range Interpretation Comments [facility]IME [facility] (test code = 30.1 seconds 11.7-14.7 H 759) INR [facility] (test code = 370) 2.9 <=5.9 RECOMMENDED COUMADIN/WARFARIN INR THERAPY RANGESSTANDARD DOSE: 2.0 - 3.0 Includes: PROPHYLAXIS forvenous thrombosis, systemic embolization; TREATMENT for venous thrombosis and/or pulmonary embolus.HIGH RISK: Target INR is 2.5-3.5 for patients with mechanical heart valves.BASIC METABOLIC [id number] 16:10:00 Test Item Value Reference Range Interpretation [...] S NOT APPLICABLE FOR DIALYSIS PATIEN TS. [id number] 16:09:00 Test Item Value Reference Range Interpretation [...] 0-0 H (test code = 413) POCT-GLUCOSE [id number] 08:03:00 Test Item Value Reference Range Interpretation Comments POC-GLUCOSE METER 89 mg/dL 70-110 TESTED AT [facility] 6720 (BEAKER) (test [place] = [place] [address] 1538) RAD, CHEST, 1 VIEW, NON [id number] 07:46:00Reason for exam:->Post opShould this be performed at the bedside?->YesFINAL REPORT Chest one view. Clinical history: Post op Comparison: 12/24/2018 Discussion: A frontal chest is provided. Cardiomediastinal contours are unchanged. Stable appearance of pleural-parenchymal opacity at the right mid to lower lung. There is a tiny right apical pneumothorax, unchanged. Probable trace left effusion. Signed: Dionicio Chery Verified Date/Time: 07:46:01 Reading Location: [facility] Radiology Reading Room RAD, ABDOMEN/KUB, 1 VIEW [id number] 07:25:00Reason for exam:->abdominal distentionShould this be performed [...] Chery Verified Date/Time: 12/25/2018 07:25:40 Reading Location: [facility] Radiology Reading Room POCT-GLUCOSE [id number] 22:06:00 Test Item Value Reference Range Interpretation Comments POC-GLUCOSE METER 102 mg/dL 70-110 TESTED AT [place] [address] ([facility]) (test code = [facility] 1538) [address] POCT-GLUCOSE [id number] 18:44:00 Test Item Value Reference Range Interpretation Comments POC-GLUCOSE METER 100 mg/dL 70-110 TESTED AT [place] [address] ([facility]) (test code = [facility] 1538) [address]73 POCT-GLUCOSE [id number] 14:54:00 Test Item Value Reference Range Interpretation Comments POC-GLUCOSE METER 103 mg/dL 70-110 TESTED AT [place] [address] ([facility]) (test code = [facility] 1538) [address] [id number] 08:07:00 Test Item Value Reference Range Interpretation Comments FERRITIN (BEAKER) (test code = 2044 ng/mL 5-275 H 361) POCT-GLUCOSE [id number] 07:57:00 Test Item Value Reference Range Interpretation Comments POC-GLUCOSE METER 76 mg/dL 70-110 TESTED AT [facility] 6720 (BEAKER) (test code = [place] [facility] [address] 1538) RAD, CHEST, 1 VIEW, NON [id number] 07:57:00Reason for exam:->Post opShould this be performed at the bedside?->YesFINAL REPORT Comparison: 12/23/2018 TECHNIQUE: Single view of the chest FINDINGS: Right-sided airspace disease and pleural effusion again noted, stable. There is a tiny right apical pneumothorax. Left retrocardiac opacity again noted. Lungs otherwise clear. Cardiac silhouette is enlarged. Postsurgical changes in the mediastinum noted. Signed: Kyle Rome MDR[facility] Verified Date/Time: 12/24/2018 07:57:06 Reading Location: [facility] Radiology Reading Room CBC (HEMOGRAM ONLY) [...] H (test code = 413) BASIC METABOLIC [id number] 07:14:00 Test Item Value Reference Range Interpretation [...] S NOT APPLICABLE FOR DIALYSIS PATIEN TS. [id number] 07:08:00 Test Item Value Reference Range Interpretation [...] % 20-55 (test code = 2590) PROTHROMBIN TIME/[id number] 07:05:00 Test Item Value Reference Range Interpretation Comments PROTIME ([facility]) (test code = 38.7 seconds 11.7-14.7 H 759) INR ([facility]) (test code = 370) 3.9 <=5.9 RECOMMENDED COUMADIN/WARFARIN INR THERAPY RANGESSTANDARD DOSE: 2.0 - 3.0 Includes: PROPHYLAXIS forvenous thrombosis, systemic embolization; TREATMENT for venous thrombosis and/or pulmonary embolus.HIGH RISK: Target INR is 2.5-3.5 for patients with mechanical heart valves.POCT-GLUCOSE [id number] 00:26:00 Test Item Value Reference Range Interpretation Comments POC-GLUCOSE METER 86 mg/dL 70-110 TESTED AT [place] [address] ([facility]) (test code = [place] [facility] [address] 1538) POCT-GLUCOSE [id number] 00:26:00 Test Item Value Reference Range Interpretation Comments POC-GLUCOSE METER 137 mg/dL 70-110 H TESTED AT [place] [address] ([facility]) (test code = [place]IA GOS[place] Humberto [facility] 1538) [address] POCT-GLUCOSE [id number] 16:07:00 Test Item Value Reference Range Interpretation Comments POC-GLUCOSE METER 72 mg/dL 70-110 TESTED AT [place] [address] ([facility]) (test code = [place] [facility] [address] 1538) POCT-GLUCOSE [id number] 16:07:00 Test Item Value Reference Range Interpretation Comments POC-GLUCOSE METER 61 mg/dL 70-110 L TESTED AT [place] [address] ([facility]) (test code = [place] [facility] [address] 1538) POCT-GLUCOSE [id number] 11:27:00 Test Item Value Reference Range Interpretation Comments POC-GLUCOSE METER 82 mg/dL 70-110 TESTED AT [place] [address] ([facility]) (test code = [place] [facility] [address] 1538) POCT-GLUCOSE [id number] 10:32:00 Test Item Value Reference Range Interpretation Comments POC-GLUCOSE METER 43 mg/dL 70-110 L TESTED AT [place] [address] ([facility]) (test code = [place] [facility] [address] 1538) BASIC METABOLIC [id number] 07:28:00 Test Item Value Reference Range Interpretation Comments SODIUM ([facility]) 132 meq/L 136-145 L (test [...] S NOT APPLICABLE FOR DIALYSIS PATIEN TS. [id number] 07:24:00 Test Item Value Reference Range Interpretation Comments MAGNESIUM (BEAKER) 2.0 mg/dL 1.6-2.6 Specimen slightly (test code = 627) hemolyzed [id number] 07:24:00 Test Item Value Reference Range Interpretation Comments PHOSPHORUS (BEAKER) 4.4 mg/dL 2.3-4.7 Specimen slightly (test code = 604) hemolyzed PROTHROMBIN TIME/[id number] 07:20:00 Test Item Value Reference Range Interpretation [...] = 413) RAD, CHEST, 1 VIEW, NON [id number] 04:22:00Reason for exam:->Post opShould this be performed [...] Taylor Verified Date/Time: 12/23/2018 04:22:43 Reading Location: [facility] C013Y CT Body Reading Room POCT-GLUCOSE [id number] 03:01:00 Test Item Value Reference Range Interpretation Comments POC-GLUCOSE METER 85 mg/dL 70-110 TESTED AT [facility] 6720 (BEAKER) (test [place] = [place] [address] 1088) BASIC METABOLIC [id number] 18:52:00 Test Item Value Reference Range Interpretation [...] H (BEAKER) (test code = 413) ANAEROBIC [id number] 17:00:00 Test Item Value Reference Range Interpretation Comments CULTURE (BEAKER) (test No anaerobes isolated code = 1095) RAD, CHEST, 1 VIEW, NON [id number] 07:44:00Reason for exam:->Post opShould this be performed [...] Arteaga Verified Date/Time: 12/22/2018 07:44:12 Reading Location: [facility] Radiology Reading Room PROTHROMBIN TIME/[id number] 04:31:00 Test Item Value Reference Range Interpretation [...] METER 141 mg/dL 70-110 H TESTED AT [facility] 67 (JARROD) (test code = [place] 1538) [address] POCT-GLUCOSE [id number] 13:22:00 Test Item Value Reference Range Interpretation Comments POC-GLUCOSE METER 100 mg/dL 70-110 TESTED AT [facility] 6720 ([facility]) (test code = [place] 1538) [address] RAD, CHEST, 1 VIEW, NON [id number] 08:01:00Reason for exam:->Post opShould this be performed [...] Lisa Verified Date/Time: 12/21/2018 08:01:46 Reading Location: [address] Neuro Reading Room PROTHROMBIN TIME/[id number] 05:30:00 Test Item Value Reference Range Interpretation [...] 6720 (BEAKER) (test code = [place] [facility] [address] 1538) POCT-GLUCOSE [id number] 17:40:00 Test Item Value Reference Range Interpretation Comments POC-GLUCOSE METER 91 mg/dL 70-110 TESTED AT [facility] 6720 (BEAKER) (test code = [place] [facility] [address] 1538) POCT-GLUCOSE [id number] 13:13:00 Test Item Value Reference Range Interpretation Comments POC-GLUCOSE METER 73 mg/dL 70-110 TESTED AT [place] [address] (BEAKER) (test code = F[place]ER [place] [facility] [address] 1538) SURGICALLY OBTAINED CULTURE + GRAM [id number] 08:41:00 Test Item Value Reference Range Interpretation Comments CULTURE (BEAKER) (test No growth code = 1095) GRAM STAIN RESULT No White blood cells (BEAKER) (test code = seen 1123) GRAM STAIN RESULT No organisms seen (BEAKER) (test code = 30391) RAD, CHEST, 1 VIEW, NON [id number] 08:20:00Reason for exam:->Post opShould this be performed [...] Lisa Verified Date/Time: 12/20/2018 08:20:58 Reading Location: [address] Neuro Reading Room BASIC METABOLIC [id number] 08:09:00 Test Item Value Reference Range Interpretation [...] S NOT APPLICABLE FOR DIALYSIS PATIRUBÉN TS. [id number] 08:00:00 Test Item Value Reference Range Interpretation Comments PHOSPHORUS (BEAKER) (test code = 4.5 mg/dL 2.3-4.7 604) CALCIUM, [id number] 07:20:00 Test Item Value Reference Range Interpretation Comments CALCIUM IONIZED (BEAKER) (test 1.04 mmol/L 1.12-1.27 L code = 698) PH, BLOOD (BEAKER) (test code = 7.35 1810) PROTHROMBIN [id number] 07:04:00 Test Item Value Reference Range Interpretation [...] 0-0 (BEAKER) (test code = 413) POCT-GLUCOSE [id number] 22:00:00 Test Item Value Reference Range Interpretation Comments POC-GLUCOSE METER 188 mg/dL 70-110 H TESTED AT [facility] 6720 (BEAKER) (test code = [place] 1538) [address] TISSUE [id number] 18:15:00Surgical Pathology Report Case: [id number] Authorizing Provider: Moiz Vargas, Collected: 12/17/2018 [place]50 Ordering Location: [facility] Received: 12/17/2018 1129 PERIOPERATIVE SERVICES Pathologist: Kwan Perla MD Specimen: Pleural, Right, RIGHT PLEURAL PEEL PLEURA, RIGHT, DECORTICATION- MILD CHRONIC INFLAMMATION AND GRANULATION TISSUE- ORGANIZING BLOOD CLOTS- NO MALIGNANT CELLS IDENTIFIED Signing Pathologist Direct Phone Line: [phone] signed by Kwan Perla MD on 12/19/2018 at 6:15 PMCorrelation with microbiology cultures is recommended.80562Hzcfhvr effusion and other conditions classified elsewhereRight pleural peelThe specimen is received in a formalin-filled container labeled with the patient's information and labeled "right pleural peel" and consists of multiple fragments of porter-red, dusky, firm tissue measuring 6 x 5 x 0.4 cm in aggregate. Measurement Supervisor sections are submitted in A1-A3. CG/ew Performed.POCT-GLUCOSE [id number] 17:11:00 Test Item Value Reference Range Interpretation Comments POC-GLUCOSE METER 126 mg/dL 70-110 H TESTED AT [place] [address] ([facility]) (test code = [facility] 1538) [address] POCT-GLUCOSE [id number] 12:57:00 Test Item Value Reference Range Interpretation Comments POC-GLUCOSE METER 143 mg/dL 70-110 H TESTED AT [place] [address] ([facility]) (test code = [facility] 1538) [address] POCT-GLUCOSE [id number] 07:27:00 Test Item Value Reference Range Interpretation Comments POC-GLUCOSE METER 141 mg/dL 70-110 H TESTED AT [place] [address] ([facility]) (test code = [facility] 1538) [address] CALCIUM, [id number] 06:29:00 Test Item Value Reference Range Interpretation Comments CALCIUM IONIZED ([facility]) (test 1.00 mmol/L 1.12-1.27 L code = 698) PH, BLOOD ([facility]) (test code = 7.45 1810) RAD, CHEST, 1 VIEW, NON [id number] 04:54:00Reason for exam:->Post opShould this be performed [...] MDReport Verified Date/Time: 2018 04:54:49 Reading Location: [facility] C013Y CT Body Reading Room BASIC METABOLIC [id number] 04:19:00 Test Item Value Reference Range Interpretation [...] S NOT APPLICABLE FOR DIALYSIS PATIEN TS. [id number] 04:16:00 Test Item Value Reference Range Interpretation Comments PHOSPHORUS (BEAKER) (test code = 3.4 mg/dL 2.3-4.7 604) PROTHROMBIN [id number] 04:06:00 Test Item Value Reference Range Interpretation [...] 0-0 (BEAKER) (test code = 413) POCT-GLUCOSE [id number] 22:11:00 Test Item Value Reference Range Interpretation Comments POC-GLUCOSE METER 149 mg/dL 70-110 H TESTED AT [place] [address] ([facility]) (test code = [place] [facility] 1538) [address] POCT-GLUCOSE [id number] 17:52:00 Test Item Value Reference Range Interpretation Comments POC-GLUCOSE METER 122 mg/dL 70-110 H TESTED AT [place] [address] ([facility]) (test code = [facility] 1538) [address] POCT-GLUCOSE [id number] 14:26:00 Test Item Value Reference Range Interpretation Comments POC-GLUCOSE METER 98 mg/dL 70-110 TESTED AT [place] [address] ([facility]) (test code = [facility] [address] 1538) HEMOGLOBIN AND [id number] 12:47:00 Test Item Value Reference Range Interpretation Comments HEMOGLOBIN (BEAKER) (test code = 9.2 GM/DL 13.7-17.5 L 410) HEMATOCRIT (BEAKER) (test code = 28.3 % 40.1-51.0 L 411) POCT-GLUCOSE [id number] 09:38:00 Test Item Value Reference Range Interpretation Comments POC-GLUCOSE METER 73 mg/dL 70-110 TESTED AT [facility] 6720 (BEAKER) (test code = [place] [address] 1538) PROTEIN ELECTROPHORESIS, [id number] 09:21:00 Test Item Value Reference Range Interpretation [...] of chronic inflammation. No monoclonal bands detected. [id number] Amanda De Jesus MD (BEAKER) (test code = (electronic signature) 2616) PROTEIN TOTAL SERUM, 7.5 gm/dL 6.0-8.3 SPEP (BEAKER) (test code = 2660) RAD, CHEST, 1 VIEW, NON [id number] 06:47:00Reason for exam:->Post opShould this be performed [...] [place] Verified Date/Time: 12/18/2018 06:47:21 Reading Location: [facility] B1 C013Y CT Body Reading Room [id number] 06:20:00 Test Item Value Reference Range Interpretation Comments MAGNESIUM (BEAKER) (test code = 2.2 mg/dL 1.6-2.6 627) CALCIUM, [id number] 06:00:00 Test Item Value Reference Range Interpretation Comments CALCIUM IONIZED (BEAKER) (test 1.09 mmol/L 1.12-1.27 L code = 698) PH, BLOOD (BEAKER) (test code = 7.34 1810) BASIC METABOLIC [id number] 05:07:00 Test Item Value Reference Range Interpretation [...] S NOT APPLICABLE FOR DIALYSIS PATIEN TS. [id number] 04:54:00 Test Item Value Reference Range Interpretation Comments PHOSPHORUS (BEAKER) (test code = 6.3 mg/dL 2.3-4.7 H 604) HEPATIC FUNCTION [id number] 04:54:00 Test Item Value Reference Range Interpretation [...] (test code = 23 U/L 6-55 347) [id number] 04:51:00 Test Item Value Reference Range Interpretation Comments PARTIAL THROMBOPLASTIN TIME 38.6 seconds 22.5-36.0 H (BEAKER) (test code = 760) PROTHROMBIN [id number] 04:50:00 Test Item Value Reference Range Interpretation Comments PROTIME (BEAKER) (test code = 16.0 seconds 11.7-14.7 H 759) INR (BEAKER) (test code = 370) 1.3 <=5.9 RECOMMENDED COUMADIN/WARFARIN INR THERAPY RANGESSTANDARD DOSE: 2.0 - 3.0 Includes: PROPHYLAXIS forvenous thrombosis, systemic embolization; TREATMENT for venous thrombosis and/or pulmonary embolus.HIGH RISK: Target INR is 2.5-3.5 for patients with mechanical heart valves.[id number] 04:50:00 Test Item Value Reference Range Interpretation Comments FIBRINOGEN LEVEL (BEAKER) (test 494 mg/dl 225-434 H code = 658) PLATELET [id number] 04:38:00 Test Item Value Reference Range Interpretation [...] WBC 0-0 (BEAKER) (test code = 413) [id number] 18:48:00 Test Item Value Reference Range Interpretation Comments MAGNESIUM (BEAKER) (test code = 2.4 mg/dL 1.6-2.6 627) POCT-GLUCOSE [id number] 18:42:00 Test Item Value Reference Range Interpretation Comments POC-GLUCOSE METER 121 mg/dL 70-110 H TESTED AT [facility] 6720 (BEAKER) (test code = [place] 1538) [address] HEMOGLOBIN AND [id number] 18:37:00 Test Item Value Reference Range Interpretation Comments HEMOGLOBIN (BEAKER) (test code = 10.0 GM/DL 13.7-17.5 L 410) HEMATOCRIT (BEAKER) (test code = 31.3 % 40.1-51.0 L 411) RAD, CHEST, 1 VIEW, NON [id number] 13:28:00Reason for exam:->post opShould this be performed [...] [place] Verified Date/Time: 12/17/2018 13:28:23 Reading Location: [facility] Reading Room BASIC METABOLIC [id number] 13:03:00 Test Item Value Reference Range Interpretation [...] S NOT APPLICABLE FOR DIALYSIS PATIEN TS. [id number] 12:53:00 Test Item Value Reference Range Interpretation Comments PHOSPHORUS (BEAKER) (test code = 4.3 mg/dL 2.3-4.7 604) [id number] 12:53:00 Test Item Value Reference Range Interpretation Comments MAGNESIUM (BEAKER) (test code = 1.5 mg/dL 1.6-2.6 L 627) LACTIC ACID, [id number] 12:50:00 Test Item Value Reference Range Interpretation Comments LACTATE BLOOD ARTERIAL (2) 0.9 mmol/L 0.5-2.2 (BEAKER) (test code = 2874) CBC W/PLT COUNT & AUTO [id number] 12:47:00 Test Item Value Reference Range Interpretation [...] PERCENT (BEAKER) (test code = 2801) CALCIUM, [id number] 12:26:00 Test Item Value Reference Range Interpretation Comments CALCIUM IONIZED (BEAKER) (test 1.07 mmol/L 1.12-1.27 L code = 698) PH, BLOOD (BEAKER) (test code = 7.38 1810) BLOOD GAS, [id number] 12:26:00 Test Item Value Reference Range Interpretation [...] (test code = 1819) 40.0 % CALCIUM, [id number] 10:25:00 Test Item Value Reference Range Interpretation Comments CALCIUM IONIZED (BEAKER) (test 1.09 mmol/L 1.12-1.27 L code = 698) PH, BLOOD (BEAKER) (test code = 7.45 1810) BLOOD GAS, [id number] 10:22:00 Test Item Value Reference Range Interpretation [...] code = 1819) 96.0 % SODIUM NA-STAT [id number] 10:22:00 Test Item Value Reference Range Interpretation Comments SODIUM (BEAKER) (test code = 381) 133 meq/L 135-148 L GLUCOSE-STAT [id number] 10:22:00 Test Item Value Reference Range Interpretation Comments GLUCOSE RANDOM (BEAKER) (test code 116 mg/dL 70-110 H = 652) HGB/HCT (H&H) - STAT [id number] 10:22:00 Test Item Value Reference Range Interpretation Comments HEMOGLOBIN (BEAKER) (test code = 8.9 g/dL 13.0-16.8 L 410) HEMATOCRIT (BEAKER) (test code = 26.0 % 40.0-50.0 L 411) POTASSIUM-STAT [id number] 10:20:00 Test Item Value Reference Range Interpretation Comments POTASSIUM (BEAKER) (test code = 4.0 meq/L 3.6-5.5 379) HEMOGLOBIN [id number] 09:33:00 Test Item Value Reference Range Interpretation Comments HEMOGLOBIN A1C (BEAKER) (test code = 5.9 % 4.3-6.1 368) BLOOD GAS, [id number] 09:27:00 Test Item Value Reference Range Interpretation [...] code = 1819) 100.0 % SODIUM NA-STAT [id number] 09:27:00 Test Item Value Reference Range Interpretation Comments SODIUM (BEAKER) (test code = 381) 133 meq/L 135-148 L HGB/HCT (H&H) - STAT [id number] 09:27:00 Test Item Value Reference Range Interpretation Comments HEMOGLOBIN (BEAKER) (test code = 9.4 g/dL 13.0-16.8 L 410) HEMATOCRIT (BEAKER) (test code = 28.0 % 40.0-50.0 L 411) GLUCOSE-STAT [id number] 09:26:00 Test Item Value Reference Range Interpretation Comments GLUCOSE RANDOM (BEAKER) (test code = 97 mg/dL 70-110 652) POTASSIUM-STAT [id number] 09:26:00 Test Item Value Reference Range Interpretation Comments POTASSIUM (BEAKER) (test code = 3.9 meq/L 3.6-5.5 379) CALCIUM, [id number] 09:26:00 Test Item Value Reference Range Interpretation Comments CALCIUM IONIZED (BEAKER) (test 1.17 mmol/L 1.12-1.27 code = 698) PH, BLOOD (BEAKER) (test code = 7.44 1810) BLOOD GAS, [id number] 08:32:00 Test Item Value Reference Range Interpretation [...] code = 1819) 96.0 % SODIUM NA-STAT [id number] 08:32:00 Test Item Value Reference Range Interpretation Comments SODIUM (BEAKER) (test code = 381) 133 meq/L 135-148 L GLUCOSE-STAT [id number] 08:32:00 Test Item Value Reference Range Interpretation Comments GLUCOSE RANDOM (BEAKER) (test code 113 mg/dL 70-110 H = 652) HGB/HCT (H&H) - STAT [id number] 08:32:00 Test Item Value Reference Range Interpretation Comments HEMOGLOBIN (BEAKER) (test code = 9.9 g/dL 13.0-16.8 L 410) HEMATOCRIT (BEAKER) (test code = 29.0 % 40.0-50.0 L 411) CALCIUM, [id number] 08:31:00 Test Item Value Reference Range Interpretation Comments CALCIUM IONIZED (BEAKER) (test 1.05 mmol/L 1.12-1.27 L code = 698) PH, BLOOD (BEAKER) (test code = 7.49 1810) POTASSIUM-STAT [id number] 08:29:00 Test Item Value Reference Range Interpretation Comments POTASSIUM (BEAKER) (test code = 3.6 meq/L 3.6-5.5 379) POCT-GLUCOSE [id number] 06:20:00 Test Item Value Reference Range Interpretation Comments POC-GLUCOSE METER 99 mg/dL 70-110 TESTED AT [facility] 6720 (BEAKER) (test code = [place] [address] 1538) [id number] 05:05:00 Test Item Value Reference Range Interpretation Comments PARTIAL THROMBOPLASTIN TIME 75.6 seconds 22.5-36.0 H (BEAKER) (test code = 760) LIPID [id number] 05:04:00 Test Item Value Reference Range Interpretation [...] Borderline 130-159 High 160-189 Very High >=190PROTHROMBIN [id number] 05:03:00 Test Item Value Reference Range Interpretation Comments PROTIME (BEAKER) (test code = 15.4 seconds 11.7-14.7 H 759) INR (BEAKER) (test code = 370) 1.2 <=5.9 RECOMMENDED COUMADIN/WARFARIN INR THERAPY RANGESSTANDARD DOSE: 2.0 - 3.0 Includes: PROPHYLAXIS forvenous thrombosis, systemic embolization; TREATMENT for venous thrombosis and/or pulmonary embolus.HIGH RISK: Target INR is 2.5-3.5 for patients with mechanical heart valves.POCT-GLUCOSE [id number] 21:17:00 Test Item Value Reference Range Interpretation Comments POC-GLUCOSE METER 223 mg/dL 70-110 H TESTED AT [facility] 6720 [facility] (test code = [place] 1538) [address] COMPREHENSIVE METABOLIC [id number] 18:57:00 Test Item Value Reference Range Interpretation [...] S NOT APPLICABLE FOR DIALYSIS PATIEN TS. [id number] 18:46:00 Test Item Value Reference Range Interpretation Comments MAGNESIUM (BEAKER) (test code = 1.8 mg/dL 1.6-2.6 627) CBC W/PLT COUNT & AUTO [id number] 18:10:00 Test Item Value Reference Range Interpretation [...] PERCENT (BEAKER) (test code = 2801) POCT-GLUCOSE [id number] 17:34:00 Test Item Value Reference Range Interpretation Comments POC-GLUCOSE METER 169 mg/dL 70-110 H TESTED AT [place] [address] ([facility]) (test code = [place] [facility] 1538) [address] HEPARIN [id number] 13:40:00 Test Item Value Reference Range Interpretation Comments HEPARIN ANTIBODY ([facility]) (test code Negative Negative = 646) HEPARIN ANTIBODY OD ([facility]) (test 0.105 <0.400 code = 2659) 4T TOTAL SCORE ([facility]) (test code = 4 3241) Probability of HIT based on scoring system: 6-8 = High probability; 4-5 = intermediate probability;0-3 = low probabilityPOCT-GLUCOSE [id number] 12:51:00 Test Item Value Reference Range Interpretation Comments POC-GLUCOSE METER 66 mg/dL 70-110 L Notified Humberto Yeager MD/TESTED AT ([facility]) (test code = [place] [address] JOSE ANTONIO 1538) [facility] 7703 0 POCT-GLUCOSE [id number] 07:54:00 Test Item Value Reference Range Interpretation Comments POC-GLUCOSE METER 75 mg/dL 70-110 TESTED AT [place] [address] ([facility]) (test code = [place] [facility] [address] 1538) [id number] 04:21:00 Test Item Value Reference Range Interpretation Comments PROTIME ([facility]) (test code = 15.4 seconds 11.7-14.7 H 759) INR ([facility]) (test code = 370) 1.2 <=5.9 PARTIAL THROMBOPLASTIN TIME 74.0 seconds 22.5-36.0 H ([facility]) (test code = 760) RECOMMENDED COUMADIN/WARFARIN INR THERAPY RANGESSTANDARD DOSE: 2.0 - 3.0 Includes: PROPHYLAXIS forvenous thrombosis, systemic embolization; TREATMENT for venous thrombosis and/or pulmonary embolus.HIGH RISK: Target INR is 2.5-3.5 for patients with mechanical heart valves.[id number] 04:20:00 Test Item Value Reference Range Interpretation Comments FIBRINOGEN LEVEL ([facility]) (test 525 mg/dl 225-434 H code = 658) POCT-GLUCOSE [id number] 21:25:00 Test Item Value Reference Range Interpretation Comments POC-GLUCOSE METER 129 mg/dL 70-110 H TESTED AT [place] [address] ([facility]) (test code = [place] [facility] 1538) [address] [id number] 18:23:00 Test Item Value Reference Range Interpretation Comments PARTIAL THROMBOPLASTIN TIME 72.0 seconds 22.5-36.0 H ([facility]) (test code = 760) POCT-GLUCOSE [id number] 16:20:00 Test Item Value Reference Range Interpretation Comments POC-GLUCOSE METER 142 mg/dL 70-110 H TESTED AT [place] [address] ([facility]) (test code = [place] [facility] 1538) [address] POCT-GLUCOSE [id number] 13:05:00 Test Item Value Reference Range Interpretation Comments POC-GLUCOSE METER 86 mg/dL 70-110 TESTED AT [place] [address] ([facility]) [facility] [address] 1538) [id number] 11:19:00 Test Item Value Reference Range Interpretation Comments PARTIAL THROMBOPLASTIN TIME 72.3 seconds 22.5-36.0 H ([facility]) (test code = 760) POCT-GLUCOSE [id number] 07:56:00 Test Item Value Reference Range Interpretation Comments POC-GLUCOSE METER 87 mg/dL 70-110 TESTED AT [facility] 6720 (BEAKER) (test code = [place] [address] 1538) [id number] 03:13:00 Test Item Value Reference Range Interpretation Comments PARTIAL THROMBOPLASTIN TIME 97.1 seconds 22.5-36.0 H (BEAKER) (test code = 760) PROTHROMBIN [id number] 03:11:00 Test Item Value Reference Range Interpretation [...] WBC 0-0 (test code = 413) POCT-GLUCOSE [id number] 21:26:00 Test Item Value Reference Range Interpretation Comments POC-GLUCOSE METER 121 mg/dL 70-110 H TESTED AT [place] [address] ([facility]) (test code = [place] 1538) [address] [id number] 19:05:00 Test Item Value Reference Range Interpretation Comments PARTIAL THROMBOPLASTIN TIME 64.0 seconds 22.5-36.0 H ([facility]) (test code = 760) POCT-GLUCOSE [id number] 17:24:00 Test Item Value Reference Range Interpretation Comments POC-GLUCOSE METER 131 mg/dL 70-110 H TESTED AT [place] [address] ([facility]) (test code = [place] 1538) [address] [id number] 13:32:00 Test Item Value Reference Range Interpretation Comments PARTIAL THROMBOPLASTIN TIME 81.4 seconds 22.5-36.0 H ([facility]) (test code = 760) POCT-GLUCOSE [id number] 12:32:00 Test Item Value Reference Range Interpretation Comments POC-GLUCOSE METER 102 mg/dL 70-110 TESTED AT [place] [address] ([facility]) (test code = MARIA GOSMAN H[place]to [place] 1538) [address] POCT-GLUCOSE [id number] 07:07:00 Test Item Value Reference Range Interpretation Comments POC-GLUCOSE METER 113 mg/dL 70-110 H TESTED AT [place] [address] ([facility]) (test code = [place] 1538) [address] [id number] 05:47:00 Test Item Value Reference Range Interpretation Comments PARTIAL THROMBOPLASTIN TIME 91.8 seconds 22.5-36.0 H ([facility]) (test code = 760) POCT-GLUCOSE [id number] 21:27:00 Test Item Value Reference Range Interpretation Comments POC-GLUCOSE METER 90 mg/dL 70-110 TESTED AT [place] [address] ([facility]) (test code = [place] [address] 1538) POCT-GLUCOSE [id number] 17:46:00 Test Item Value Reference Range Interpretation Comments POC-GLUCOSE METER 175 mg/dL 70-110 H TESTED AT [place] [address] ([facility]) (test code = [place] G[place] [facility] 1538) [address] POCT-GLUCOSE [id number] 17:30:00 Test Item Value Reference Range Interpretation Comments POC-GLUCOSE METER 84 mg/dL 70-110 TESTED AT [facility] 6720 [facility] (test code = [place] [facility] [address] 1538) [id number] 13:20:00 Test Item Value Reference Range Interpretation Comments PARTIAL THROMBOPLASTIN TIME 68.4 seconds 22.5-36.0 H (BEAKER) (test code = 760) BASIC METABOLIC [id number] 10:36:00 Test Item Value Reference Range Interpretation [...] NOT APPLICABLE FOR DIALYSIS PATIEN TS. POCT-GLUCOSE [id number] 07:43:00 Test Item Value Reference Range Interpretation Comments POC-GLUCOSE METER 84 mg/dL 70-110 TESTED AT [facility] 6720 (BEAKER) (test code = [place] [facility] [address] 1538) [id number] 06:52:00 Test Item Value Reference Range Interpretation Comments PARTIAL THROMBOPLASTIN TIME 76.5 seconds 22.5-36.0 H (BEAKER) (test code = 760) PROTHROMBIN [id number] 06:51:00 Test Item Value Reference Range Interpretation [...] 0-1 PERCENT (BEAKER) (test code = 2801) [id number] 00:11:00 Test Item Value Reference Range Interpretation Comments PARTIAL THROMBOPLASTIN TIME 59.7 seconds 22.5-36.0 H (AKER) (test code = 760) POCT-GLUCOSE [id number] 21:33:00 Test Item Value Reference Range Interpretation Comments POC-GLUCOSE METER 113 mg/dL 70-110 H TESTED AT [place] [address] ([facility]) (test code = [place] 1538) [address] POCT-GLUCOSE [id number] 18:08:00 Test Item Value Reference Range Interpretation Comments POC-GLUCOSE METER 128 mg/dL 70-110 H TESTED AT [place] [address] ([facility]) (test code = [place] 1538) [address] [id number] 16:51:00 Test Item Value Reference Range Interpretation Comments PARTIAL THROMBOPLASTIN TIME 71.6 seconds 22.5-36.0 H ([facility]) (test code = 760) POCT-GLUCOSE [id number] 12:39:00 Test Item Value Reference Range Interpretation Comments POC-GLUCOSE METER 124 mg/dL 70-110 H TESTED AT [facility] 6720 ([facility]) (test code = [place] 1538) [address] [id number] 09:07:00 Test Item Value Reference Range Interpretation Comments PARTIAL THROMBOPLASTIN TIME 96.6 seconds 22.5-36.0 H ([facility]) (test code = 760) POCT-GLUCOSE [id number] 07:48:00 Test Item Value Reference Range Interpretation Comments POC-GLUCOSE METER 105 mg/dL 70-110 TESTED AT [place] [address] ([facility]) (test code = [place] 1538) [address] BASIC METABOLIC [id number] 01:54:00 Test Item Value Reference Range Interpretation [...] S NOT APPLICABLE FOR DIALYSIS PATIEN TS. [id number] 01:37:00 Test Item Value Reference Range Interpretation Comments PARTIAL THROMBOPLASTIN TIME 53.4 seconds 22.5-36.0 H (BEAKER) (test code = 760) PROTHROMBIN [id number] 01:36:00 Test Item Value Reference Range Interpretation [...] PERCENT (BEAKER) (test code = 2809) POCT-GLUCOSE [id number] 21:57:00 Test Item Value Reference Range Interpretation Comments POC-GLUCOSE METER 165 mg/dL 70-110 H TESTED AT [place] [address] ([facility]) (test code = [place] 1538) [address] [id number] 18:46:00 Test Item Value Reference Range Interpretation Comments PARTIAL THROMBOPLASTIN TIME 39.0 seconds 22.5-36.0 H ([facility]) (test code = 760) POCT-GLUCOSE [id number] 17:51:00 Test Item Value Reference Range Interpretation Comments POC-GLUCOSE METER 157 mg/dL 70-110 H TESTED AT [place] [address] ([facility]) (test code = MARIA GIL [place] 1538) [address] POCT-GLUCOSE [id number] 17:09:00 Test Item Value Reference Range Interpretation Comments POC-GLUCOSE METER 162 mg/dL 70-110 H TESTED AT [place] [address] ([facility]) (test code = MARIA GIL [place] 1538) [address] [id number] 16:07:00 Test Item Value Reference Range Interpretation Comments PARTIAL THROMBOPLASTIN TIME 117.0 seconds 22.5-36.0 H ([facility]) (test code = 760) POCT-GLUCOSE [id number] 13:28:00 Test Item Value Reference Range Interpretation Comments POC-GLUCOSE METER 88 mg/dL 70-110 TESTED AT [place] [address] ([facility]) (test [facility] = [facility] [place] [address] 1538) [id number] 09:17:00 Test Item Value Reference Range Interpretation Comments PARTIAL THROMBOPLASTIN TIME 71.7 seconds 22.5-36.0 H ([facility]) (test code = 760) POCT-GLUCOSE [id number] 08:07:00 Test Item Value Reference Range Interpretation Comments POC-GLUCOSE METER 137 mg/dL 70-110 H TESTED AT [place] [address] ([facility]) (test code = [facility] [place] 1538) [address] [id number] 02:27:00 Test Item Value Reference Range Interpretation Comments PARTIAL THROMBOPLASTIN TIME 62.4 seconds 22.5-36.0 H ([facility]) (test code = 760) PROTHROMBIN [id number] 02:26:00 Test Item Value Reference Range Interpretation Comments PROTIME ([facility]) (test code = 20.0 seconds 11.7-14.7 H 759) INR (BEAKER) (test code = 370) 1.7 <=5.9 RECOMMENDED COUMADIN/WARFARIN INR THERAPY RANGESSTANDARD DOSE: 2.0 - 3.0 Includes: PROPHYLAXIS forvenous thrombosis, systemic embolization; TREATMENT for venous thrombosis and/or pulmonary embolus.HIGH RISK: Target INR is 2.5-3.5 for patients with mechanical heart valves.BASIC METABOLIC [id number] 02:02:00 Test Item Value Reference Range Interpretation [...] PATIEN TS. CBC W/PLT COUNT & AUTO [id number] 01:42:00 Test Item Value Reference Range Interpretation [...] PERCENT (BEAKER) (test code = 2801) POCT-GLUCOSE [id number] 21:12:00 Test Item Value Reference Range Interpretation Comments POC-GLUCOSE METER 199 mg/dL 70-110 H TESTED AT [facility] 67 ([facility]) (test code = [place] 1538) [address] POCT-GLUCOSE [id number] 17:39:00 Test Item Value Reference Range Interpretation Comments POC-GLUCOSE METER 145 mg/dL 70-110 H TESTED AT [facility] 6720 ([facility]) (test code = [place] 1538) [address] [id number] 17:33:00 Test Item Value Reference Range Interpretation Comments PARTIAL THROMBOPLASTIN TIME 47.3 seconds 22.5-36.0 H (BEAKER) (test code = 760) POCT-GLUCOSE [id number] 12:53:00 Test Item Value Reference Range Interpretation Comments POC-GLUCOSE METER 203 mg/dL 70-110 H TESTED AT [facility] 6720 (BEAKER) (test code = [place] 1538) [address] POCT-GLUCOSE [id number] 08:28:00 Test Item Value Reference Range Interpretation Comments POC-GLUCOSE METER 98 mg/dL 70-110 TESTED AT [facility] 6720 [facility] (test code = [facility] Humberto [facility] [address] 1538) BASIC METABOLIC [id number] 05:52:00 Test Item Value Reference Range Interpretation [...] NOT APPLICABLE FOR DIALYSIS PATIEN TS. PROTHROMBIN [id number] 05:51:00 Test Item Value Reference Range Interpretation [...] PERCENT (AKER) (test code = 2801) POCT-GLUCOSE [id number] 20:54:00 Test Item Value Reference Range Interpretation Comments POC-GLUCOSE METER 126 mg/dL 70-110 H TESTED AT [place] [address] ([facility]) (test code = [facility] 1538) [id number] POCT-GLUCOSE [id number] 18:47:00 Test Item Value Reference Range Interpretation Comments POC-GLUCOSE METER 70 mg/dL 70-110 TESTED AT [place] [address] ([facility]) (test code = [facility] [address] 1538) POCT-GLUCOSE [id number] 13:25:00 Test Item Value Reference Range Interpretation Comments POC-GLUCOSE METER 120 mg/dL 70-110 H TESTED AT [place] [address] ([facility]) (test code = [facility] 1538) [id number] POCT-GLUCOSE [id number] 09:32:00 Test Item Value Reference Range Interpretation Comments POC-GLUCOSE METER 104 mg/dL 70-110 TESTED AT [place] [address] ([facility]) (test code = [facility] 1538) [id number] BASIC METABOLIC [id number] 05:59:00 Test Item Value Reference Range Interpretation [...] NOT APPLICABLE FOR DIALYSIS PATIEN TS. PROTHROMBIN [id number] 05:20:00 Test Item Value Reference Range Interpretation [...] PERCENT (BEAKER) (test code = 2801) POCT-GLUCOSE [id number] 21:14:00 Test Item Value Reference Range Interpretation Comments POC-GLUCOSE METER 200 mg/dL 70-110 H TESTED AT [facility] 6720 (BEAKER) (test code = [facility] [place] 1538) [id number] POCT-GLUCOSE [id number] 17:34:00 Test Item Value Reference Range Interpretation Comments POC-GLUCOSE METER 143 mg/dL 70-110 H TESTED AT [facility] 6720 (BEAKER) (test code = [facility] 1538) [id number] POCT-GLUCOSE [id number] 12:04:00 Test Item Value Reference Range Interpretation Comments POC-GLUCOSE METER 160 mg/dL 70-110 H TESTED AT [facility] 6720 (BEAKER) (test code = [place] 1538) [address] POCT-GLUCOSE [id number] 08:08:00 Test Item Value Reference Range Interpretation Comments POC-GLUCOSE METER 154 mg/dL 70-110 H TESTED AT [facility] 6720 (BEAKER) (test code = [place] 1538) [address] BASIC METABOLIC [id number] 06:33:00 Test Item Value Reference Range Interpretation [...] S NOT APPLICABLE FOR DIALYSIS PATIEN TS. [id number] 06:01:00 Test Item Value Reference Range Interpretation Comments PARTIAL THROMBOPLASTIN TIME 117.2 seconds 22.5-36.0 H (BEAKER) (test code = 760) PROTHROMBIN [id number] 05:56:00 Test Item Value Reference Range Interpretation [...] PERCENT (BEAKER) (test code = 2808) POCT-GLUCOSE [id number] 21:37:00 Test Item Value Reference Range Interpretation Comments POC-GLUCOSE METER 121 mg/dL 70-110 H TESTED AT [facility] 6720 (BEAKER) (test code = [place] 1538) [address] POCT-GLUCOSE [id number] 19:01:00 Test Item Value Reference Range Interpretation Comments POC-GLUCOSE METER 191 mg/dL 70-110 H TESTED AT [facility] 6720 (BEAKER) (test code = [place] 1538) [address] [id number] 18:31:00 Test Item Value Reference Range Interpretation Comments PARTIAL THROMBOPLASTIN TIME 86.2 seconds 22.5-36.0 H (BEAKER) (test code = 760) POCT-GLUCOSE [id number] 13:05:00 Test Item Value Reference Range Interpretation Comments POC-GLUCOSE METER 130 mg/dL 70-110 H TESTED AT [facility] 6720 (BEAKER) (test code = [place] [facility] 1538) [address] RAD, CHEST, 1 VIEW, NON [id number] 12:22:00Reason for exam:->pleural effusionsShould this be performed [...] MDReport Verified Date/Time: 12/07/2018 12:22:50 Reading Location: [address] Neuro Reading Room [id number] 11:39:00 Test Item Value Reference Range Interpretation Comments PARTIAL THROMBOPLASTIN TIME 100.1 seconds 22.5-36.0 H (BEAKER) (test code = 760) BODY FLUID CULTURE + GRAM [id number] 10:13:00 Test Item Value Reference Range Interpretation Comments CULTURE (BEAKER) (test No growth code = 1095) GRAM STAIN RESULT <1+ White blood cells (BEAKER) (test code = seen 1123) GRAM STAIN RESULT No organisms seen (BEAKER) (test code = 65041) POCT-GLUCOSE [id number] 08:51:00 Test Item Value Reference Range Interpretation Comments POC-GLUCOSE METER 90 mg/dL 70-110 TESTED AT [facility] 6720 (BEAKER) (test code = [place] 1893147 9968) BASIC METABOLIC [id number] 07:31:00 Test Item Value Reference Range Interpretation [...] S NOT APPLICABLE FOR DIALYSIS PATIEN TS. [id number] 05:21:00 Test Item Value Reference Range Interpretation Comments PARTIAL THROMBOPLASTIN TIME 104.0 seconds 22.5-36.0 H (BEAKER) (test code = 760) PROTHROMBIN TIME/[id number] 04:50:00 Test Item Value Reference Range Interpretation [...] 0-1 PERCENT (BEAKER) (test code = 2801) [id number] 20:33:00 Test Item Value Reference Range Interpretation Comments PARTIAL THROMBOPLASTIN TIME 87.6 seconds 22.5-36.0 H (BEAKER) (test code = 760) POCT-GLUCOSE [id number] 19:30:00 Test Item Value Reference Range Interpretation Comments POC-GLUCOSE METER 112 mg/dL 70-110 H TESTED AT [facility] 6720 (BEAKER) (test code = [place] 1538) [address] [id number] 13:55:00 Test Item Value Reference Range Interpretation Comments PARTIAL THROMBOPLASTIN TIME 85.9 seconds 22.5-36.0 H (BEAKER) (test code = 760) POCT-GLUCOSE [id number] 09:12:00 Test Item Value Reference Range Interpretation Comments POC-GLUCOSE METER 112 mg/dL 70-110 H TESTED AT [facility] 6720 (BEAKER) (test code = [place] 1538) [address] BASIC METABOLIC [id number] 08:53:00 Test Item Value Reference Range Interpretation [...] S NOT APPLICABLE FOR DIALYSIS PATIEN TS. [id number] 06:04:00 Test Item Value Reference Range Interpretation Comments PARTIAL THROMBOPLASTIN TIME 105.5 seconds 22.5-36.0 H (BEAKER) (test code = 760) PROTHROMBIN TIME/[id number] 05:44:00 Test Item Value Reference Range Interpretation [...] (test code = 2801) CT, CHEST, WITHOUT [id number] 03:17:00FINAL REPORT EXAM: CT of the chest, [...] left pleural effusion with associated compressive atelectasis. Crzuk-df-fdphuxsq loculated right pleural effusion with pleural thickening [...] MDReport Verified Date/Time: 12/06/2018 03:17:03 Reading Location: [facility] C013Y CT Body Reading Room POCT-GLUCOSE [id number] 21:22:00 Test Item Value Reference Range Interpretation Comments POC-GLUCOSE METER 171 mg/dL 70-110 H TESTED AT [place] [address] ([facility]) (test code = [place] [facility] 1538) [address] POCT-GLUCOSE [id number] 17:58:00 Test Item Value Reference Range Interpretation Comments POC-GLUCOSE METER 128 mg/dL 70-110 H TESTED AT [place] [address] ([facility]) (test code = [facility] 1538) [address] POCT-GLUCOSE [id number] 13:24:00 Test Item Value Reference Range Interpretation Comments POC-GLUCOSE METER 129 mg/dL 70-110 H TESTED AT [place] [address] ([facility]) (test code = [facility] 1538) [address] LACTATE DEHYDROGENASE (LDH)2018-12-05 13:14:00 Test Item Value Reference Range Interpretation Comments LACTATE DEHYDROGENASE ([facility]) (test 291 U/L 125-220 H code = 635) [id number] 13:10:00 Test Item Value Reference Range Interpretation Comments PARTIAL THROMBOPLASTIN TIME 91.7 seconds 22.5-36.0 H ([facility]) (test code = 760) POCT-GLUCOSE [id number] 08:19:00 Test Item Value Reference Range Interpretation Comments POC-GLUCOSE METER 106 mg/dL 70-110 TESTED AT [place] [address] ([facility]) (test code = [facility] 1538) [address] BASIC METABOLIC [id number] 07:05:00 Test Item Value Reference Range Interpretation [...] S NOT APPLICABLE FOR DIALYSIS PATIEN TS. [id number] 06:32:00 Test Item Value Reference Range Interpretation [...] 2.5-3.5 for patients with mechanical heart valves.PROTHROMBIN TIME/[id number] 06:30:00 Test Item Value Reference Range Interpretation [...] 0-1 PERCENT (BEAKER) (test code = 2801) [id number] 00:40:00 Test Item Value Reference Range Interpretation Comments PARTIAL THROMBOPLASTIN TIME 63.1 seconds 22.5-36.0 H (BEAKER) (test code = 760) POCT-GLUCOSE [id number] 00:12:00 Test Item Value Reference Range Interpretation Comments POC-GLUCOSE METER 124 mg/dL 70-110 H TESTED AT [facility] 6720 (BEAKER) (test code = [place] 1538) [address] HEPATITIS B SURFACE [id number] 22:54:00 Test Item Value Reference Range Interpretation Comments HEPATITIS B SURFACE ANTIGEN (2) Nonreactive Nonreactive (BEAKER) (test code = 2585) For chronic HD patients, draw HBsAg with each admission then every 30 days.BODY FLUID CELL COUNT WITH [id number] 20:34:00 Test Item Value Reference Range Interpretation Comments APPEARANCE FLUID (BEAKER) (test Cloudy Clear A code = 510) COLOR FLUID (BEAKER) (test code Brown Colorless, Straw A = 511) RBC FLUID (BEAKER) (test code = 49169 /cu mm <=1 H 513) ADJUSTED WBC [...] code = 2873) LACTATE DEHYDROGENASE (LDH), BODY [id number] 19:43:00 Test Item Value Reference Range Interpretation [...] local 1% lidocaine anesthesia was administered.A 4 Burmese catheter was advanced into the largest pocket of the septated pleural effusion and 300 ccof bloody fluid was removed. The catheter was removed without immediate complication. Samples were sent for analysis. IMPRESSION:Uncomplicated ultrasound-guided right thoracentesis with 300 cc fluid removed. Signed: Raimundo Kimort Verified Date/Time: 12/04/2018 18:00:50 Reading Location: [address] Ultrasound Reading Room RAD, CHEST, 1 VIEW, NON [id number] 17:23:00Reason for exam:->s/p right thoracentesisShould this be performed at the bedside?->YesFINAL REPORT EXAM: Frontal chest radiograph HISTORY PROVIDED: Status post right thoracentesis COMPARISON: 12/03/2018 IMPRESSION:There is residual small right pleural effusion with adjacent consolidation or atelectasis. Interstitial edema is similar. No discernible pneumothorax. The cardiac silhouette remains enlarged. Median sternotomy wires are again noted. No acute osseous abnormality. Signed: Kay Waltereport Verified Date/Time: 12/04/2018 17:23:06 [facility]. DIFFICILE GDH [id number] 10:01:00 Test Item Value Reference Range Interpretation Comments CDT TOXIN (test code Negative Negative = [id number]) CDT GDH ANTIGEN Positive Negative A C. difficile present but (test code = toxin not detec jayla. [id number]) Indicates colon ization with non-toxige ron strain [...] [facility] prior to clinical use.[id number] 09:39:00 Test Item Value Reference Range Interpretation Comments PARTIAL THROMBOPLASTIN TIME 79.4 seconds 22.5-36.0 H (BEAKER) (test code = 760) OCCULT BLOOD, [id number] 05:59:00 Test Item Value Reference Range Interpretation Comments FECAL OCCULT BLOOD (BEAKER) (test Negative Negative code = 618) BASIC METABOLIC [id number] 02:50:00 Test Item Value Reference Range Interpretation [...] S NOT APPLICABLE FOR DIALYSIS PATIEN TS. [id number] 02:50:00 Test Item Value Reference Range Interpretation Comments PARTIAL THROMBOPLASTIN TIME 35.3 seconds 22.5-36.0 (BEAKER) (test code = 760) Prior to initiating heparinPROTHROMBIN TIME/[id number] 02:49:00 Test Item Value Reference Range Interpretation [...] acute neurological disease, and persistent tachyarrhythmia.HEPATIC FUNCTION [id number] 02:43:00 Test Item Value Reference Range Interpretation [...] 6-55 347) CBC W/PLT COUNT & AUTO [id number] 02:21:00 Test Item Value Reference Range Interpretation [...] PERCENT (BEAKER) (test code = 2806) POCT-GLUCOSE [id number] 21:22:00 Test Item Value Reference Range Interpretation Comments POC-GLUCOSE METER 192 mg/dL 70-110 H TESTED AT [facility] 6720 ([facility]) (test code = [place] 6823) [address] TROPONIN [id number] 17:09:00 Test Item Value Reference Range Interpretation [...] and persistent tachyarrhythmia.RAD, CHEST, 1 VIEW, NON [id number] 15:36:00Reason for exam:->SHORTNESS OF BREATHShould this be performed at the bedside?->YesFINAL REPORT AP chest HISTORY: Shortness of breath. COMPARISON: 11/03/2017. IMPRESSION: Cardiomegaly. Mild interstitial edema. Right effusion and adjacent atelectasis. No pneumothorax. Signed: Madny Chairez [facility] Verified Date/Time: 12/03/2018 15:36:19 Reading Location: [address] Radiology Reading Room TROPONIN [id number] 14:48:00 Test Item Value Reference Range Interpretation [...] (BEAKER) (test code = 700) BASIC METABOLIC [id number] 14:40:00 Test Item Value Reference Range Interpretation [...] S NOT APPLICABLE FOR DIALYSIS PATIEN TS. [id number] 14:34:00 Test Item Value Reference Range Interpretation [...] (test code = 2801) RAD, CHEST, 2 [id number] 15:24:00Reason for Exam:->chronic Diastolic heart FailureFINAL REPORT [...] superimposed pneumonia cannot be excluded. Signed: Raimundo Kimepdamion Verified Date/Time: 11/03/2018 15:24:42 Reading Location: [address] Radiology Reading Room MISCELLANEOUS LAB [id number] 08:22:00 Test Item Value Reference Range Interpretation Comments SCAN RESULT (test code = 6454297) PROTHROMBIN TIME/[id number] 08:37:00 Test Item Value Reference Range Interpretation Comments PROTIME ([facility]) (test code = 24.8 seconds 11.7-14.7 H 759) INR ([facility]) (test code = 370) 2.2 <=5.9 RECOMMENDED COUMADIN/WARFARIN INR THERAPY RANGESSTANDARD DOSE: 2.0 - 3.0 Includes: PROPHYLAXIS forvenous thrombosis, systemic embolization; TREATMENT for venous thrombosis and/or pulmonary embolus.HIGH RISK: Target INR is 2.5-3.5 for patients with mechanical heart valves.POCT-GLUCOSE [id number] 08:10:00 Test Item Value Reference Range Interpretation Comments POC-GLUCOSE METER 89 mg/dL 70-110 TESTED AT [facility] 6720 ([facility]) (test code = [place] [address] 1538) BASIC METABOLIC [id number] 06:29:00 Test Item Value Reference Range Interpretation [...] S NOT APPLICABLE FOR DIALYSIS PATIEN TS. [id number] 06:28:00 Test Item Value Reference Range Interpretation Comments MAGNESIUM (BEAKER) (test code = 1.8 mg/dL 1.6-2.6 627) [id number] 06:14:00 Test Item Value Reference Range Interpretation Comments PARTIAL THROMBOPLASTIN TIME 64.7 seconds 22.5-36.0 H (BEAKER) (test code = 760) CBC W/PLT COUNT & AUTO [id number] 05:58:00 Test Item Value Reference Range Interpretation [...] PERCENT (BEAKER) (test code = 2801) POCT-GLUCOSE [id number] 21:14:00 Test Item Value Reference Range Interpretation Comments POC-GLUCOSE METER 135 mg/dL 70-110 H TESTED AT [place] [address] ([facility]) (test code = [place] [facility] 1538) [address] [id number] 19:36:00 Test Item Value Reference Range Interpretation Comments PARTIAL THROMBOPLASTIN TIME 88.6 seconds 22.5-36.0 H ([facility]) (test code = 760) POCT-GLUCOSE [id number] 18:27:00 Test Item Value Reference Range Interpretation Comments POC-GLUCOSE METER 88 mg/dL 70-110 TESTED AT [place] [address] ([facility]) (test code = [place] [facility] [address] 1538) POCT-GLUCOSE [id number] 12:05:00 Test Item Value Reference Range Interpretation Comments POC-GLUCOSE METER 92 mg/dL 70-110 TESTED AT [facility] 67 ([facility]) (test code = [place] [facility] [address] 1538) [id number] 11:46:00 Test Item Value Reference Range Interpretation Comments PARTIAL THROMBOPLASTIN TIME 74.3 seconds 22.5-36.0 H (AKER) (test code = 760) POCT-GLUCOSE [id number] 10:36:00 Test Item Value Reference Range Interpretation Comments POC-GLUCOSE METER 101 mg/dL 70-110 TESTED AT [place] [address] ([facility]) (test code = [place] [facility] 1538) [address] POCT-GLUCOSE [id number] 07:10:00 Test Item Value Reference Range Interpretation Comments POC-GLUCOSE METER 92 mg/dL 70-110 TESTED AT [place] [address] ([facility]) (test code = [place] [facility] [address] 1538) PROTHROMBIN [id number] 01:41:00 Test Item Value Reference Range Interpretation Comments PROTIME (AKER) (test code = 22.8 seconds 11.7-14.7 H 759) INR ([facility]) (test code = 370) 2.0 <=5.9 RECOMMENDED COUMADIN/WARFARIN INR THERAPY RANGESSTANDARD DOSE: 2.0 - 3.0 Includes: PROPHYLAXIS forvenous thrombosis, systemic embolization; TREATMENT for venous thrombosis and/or pulmonary embolus.HIGH RISK: Target INR is 2.5-3.5 for patients with mechanical heart valves.While on warfarin.[id number] 01:41:00 Test Item Value Reference Range Interpretation Comments PARTIAL THROMBOPLASTIN TIME 52.3 seconds 22.5-36.0 H (BEAKER) (test code = 760) While on warfarin.BASIC METABOLIC [id number] 01:37:00 Test Item Value Reference Range Interpretation [...] S NOT APPLICABLE FOR DIALYSIS PATIEN TS. [id number] 01:32:00 Test Item Value Reference Range Interpretation Comments MAGNESIUM (BEAKER) (test code = 1.8 mg/dL 1.6-2.6 627) CBC W/PLT COUNT & AUTO [id number] 01:18:00 Test Item Value Reference Range Interpretation [...] 0-1 PERCENT (BEAKER) (test code = 2801) [id number] 23:23:00 Test Item Value Reference Range Interpretation Comments PARTIAL THROMBOPLASTIN TIME 125.2 seconds 22.5-36.0 H ([facility]) (test code = 760) POCT-GLUCOSE [id number] 21:19:00 Test Item Value Reference Range Interpretation Comments POC-GLUCOSE METER 165 mg/dL 70-110 H TESTED AT [place] [address] ([facility]) (test code = [facility] 1538) [address] POCT-GLUCOSE [id number] 18:34:00 Test Item Value Reference Range Interpretation Comments POC-GLUCOSE METER 92 mg/dL 70-110 TESTED AT [place] [address] ([facility]) (test code = [facility] [address] 1538) [id number] 17:17:00 Test Item Value Reference Range Interpretation Comments PARTIAL THROMBOPLASTIN TIME 75.2 seconds 22.5-36.0 H ([facility]) (test code = 760) POCT-GLUCOSE [id number] 12:48:00 Test Item Value Reference Range Interpretation Comments POC-GLUCOSE METER 105 mg/dL 70-110 TESTED AT [place] [address] ([facility]) (test code = [facility] 1538) [address] RAD, CHEST, 1 VIEW, NON [id number] 11:00:00Reason for exam:->eval right effusionShould this be performed at the bedside?->YesFINAL REPORT Comparison: 08/15/2018 TECHNIQUE: Single view of the chest FINDINGS: Small to moderate right pleural effusion is stable. Small left pleural effusion may be slightly increased. Vascular congestion seen. No other significant change. Signed: Kyle Rome MDReport Verified Date/Time: 08/18/2018 11:00:36 Reading Location: [facility] Radiology Reading Room Electronicallysigned by: KYLE ROME M.D. on 08/18/2018 11:00 [id number] 09:48:00 Test Item Value Reference Range Interpretation Comments PARTIAL THROMBOPLASTIN TIME 48.8 seconds 22.5-36.0 H (BEAKER) (test code = 760) POCT-GLUCOSE [id number] 07:37:00 Test Item Value Reference Range Interpretation Comments POC-GLUCOSE METER 96 mg/dL 70-110 TESTED AT [facility] 67 (BEAKER) (test code = [facility] [address] 1538) BASIC METABOLIC [id number] 02:24:00 Test Item Value Reference Range Interpretation [...] S NOT APPLICABLE FOR DIALYSIS PATIEN TS. [id number] 02:22:00 Test Item Value Reference Range Interpretation Comments MAGNESIUM (BEAKER) (test code = 1.7 mg/dL 1.6-2.6 627) [id number] 02:15:00 Test Item Value Reference Range Interpretation Comments PARTIAL THROMBOPLASTIN TIME 98.9 seconds 22.5-36.0 H (BEAKER) (test code = 760) PROTHROMBIN [id number] 02:13:00 Test Item Value Reference Range Interpretation [...] PERCENT (BEAKER) (test code = 2801) POCT-GLUCOSE [id number] 21:51:00 Test Item Value Reference Range Interpretation Comments POC-GLUCOSE METER 98 mg/dL 70-110 TESTED AT [place] [address] (BEAKER) (test code = [facility] [address] 1538) [id number] 18:51:00 Test Item Value Reference Range Interpretation Comments PARTIAL THROMBOPLASTIN TIME 56.1 seconds 22.5-36.0 H (BEAKER) (test code = 760) [id number] 17:06:00 Test Item Value Reference Range Interpretation Comments PARTIAL THROMBOPLASTIN TIME 121.9 seconds 22.5-36.0 H (BEAKER) (test code = 760) POCT-GLUCOSE [id number] 16:46:00 Test Item Value Reference Range Interpretation Comments POC-GLUCOSE METER 135 mg/dL 70-110 H TESTED AT [facility] 6720 (BEAKER) (test code = [facility] 1538) [address] POCT-GLUCOSE [id number] 13:28:00 Test Item Value Reference Range Interpretation Comments POC-GLUCOSE METER 96 mg/dL 70-110 TESTED AT [facility] 6720 (BEAKER) (test code = [place] [id number] 3688) [id number] 09:15:00 Test Item Value Reference Range Interpretation Comments PARTIAL THROMBOPLASTIN TIME 58.1 seconds 22.5-36.0 H (BEAKER) (test code = 760) BASIC METABOLIC [id number] 07:31:00 Test Item Value Reference Range Interpretation [...] S NOT APPLICABLE FOR DIALYSIS PATIEN TS. [id number] 07:19:00 Test Item Value Reference Range Interpretation Comments PHOSPHORUS (BEAKER) (test code = 3.7 mg/dL 2.3-4.7 604) [id number] 07:19:00 Test Item Value Reference Range Interpretation Comments MAGNESIUM (BEAKER) (test code = 1.7 mg/dL 1.6-2.6 627) [id number] 07:07:00 Test Item Value Reference Range Interpretation Comments PARTIAL THROMBOPLASTIN TIME 124.4 seconds 22.5-36.0 H (BEAKER) (test code = 760) PROTHROMBIN [id number] 07:02:00 Test Item Value Reference Range Interpretation [...] 0-1 PERCENT (BEAKER) (test code = 2801) [id number] 23:01:00 Test Item Value Reference Range Interpretation Comments PARTIAL THROMBOPLASTIN TIME 46.5 seconds 22.5-36.0 H (BEAKER) (test code = 760) POCT-GLUCOSE [id number] 22:45:00 Test Item Value Reference Range Interpretation Comments POC-GLUCOSE METER 144 mg/dL 70-110 H TESTED AT [place] [address] ([facility]) (test code = [facility] 1538) [address] [id number] 15:02:00 Test Item Value Reference Range Interpretation Comments PARTIAL THROMBOPLASTIN TIME 56.1 seconds 22.5-36.0 H ([facility]) (test code = 760) POCT-GLUCOSE [id number] 14:39:00 Test Item Value Reference Range Interpretation Comments POC-GLUCOSE METER 189 mg/dL 70-110 H TESTED AT [facility] 6720 ([facility]) (test code = [facility] 1538) [address] HIV-1 PCR, [id number] 13:58:00 Test Item Value Reference Range Interpretation Comments HIV-1 NUMERIC RESULT ([facility]) (test 170 Cp/mL <20 H code = 2704) This test uses a Real-Time Polymerase Chain Reaction (RT-PCR) methodology to detect a highly conserved region of the HIV-1 gag gene and was performed using the [employer]ICH AmpliPrep/ERICH TaqMan HIV-1 test kit version 2.0 ([employer]Reportable range for this assay is 20 - 10,000,000 copies per mL (1.3 - 7.0 Log copies/mL).[id number] 12:54:00 Test Item Value Reference Range Interpretation Comments PARTIAL THROMBOPLASTIN TIME 143.6 seconds 22.5-36.0 H (BEAKER) (test code = 760) [id number] 10:00:00Medical Cytology Report Case: [id number] Authorizing Provider: Alison Solano MD Collected: 08/13/2018 8113 Ordering Location: [address] Received: 08/14/2018 0955 Service Pathologist: Yamil Hmam MD Specimen: Pleural, Right RIGHT PLEURAL FLUID (CYTOSPINS AND CELL BLOCK): - NO MALIGNANT CELLS IDENTIFIED (SEE COMMENT) Signing Pathologist Direct Phone Line: [phone] signed by Yamil Hamm MD on 08/16/2018 [...] thoracentesis may be considered when fluid reaccumulates. [address], [address], 427[address], 82848 x 2Left pleural effusion, history of AIDS, Kaposi's sarcoma, hepatitis C.RIGHT PLEURAL FLUID 300 mls bloody; 4 cytospins, cell blockCollected: [id number]: [id number] interpretation of this case included the use of immunohistochemistry or special stains. Please see the immunohistochemistry results in the COMMENT section. Immunohistochemistry technical testing was performed at [facility], Pathology Laboratory where it was developed [...] as qualified toperform high complexity clinical laboratory testing.[facility], Department of Pathology, [address] [place] [address], [facility], [address] [place] [address], [facility], [facility], [address] [place] [address], [facility]-GLUCOSE [id number] 08:29:00 Test Item Value Reference Range Interpretation Comments POC-GLUCOSE METER 96 mg/dL 70-110 TESTED AT [place] [address] (BEAKER) (test code = [place] [facility] [address] 6801) BODY FLUID CULTURE + GRAM [id number] 07:54:00 Test Item Value Reference Range Interpretation Comments CULTURE (BEAKER) (test code No growth = 1095) GRAM STAIN RESULT (BEAKER) <1+ WBCs (test code = 1123) GRAM STAIN RESULT (BEAKER) No organisms seen (test code = 81692) BASIC METABOLIC [id number] 06:30:00 Test Item Value Reference Range Interpretation [...] S NOT APPLICABLE FOR DIALYSIS PATIEN TS. [id number] 06:26:00 Test Item Value Reference Range Interpretation Comments MAGNESIUM (BEAKER) (test code = 1.6 mg/dL 1.6-2.6 627) [id number] 05:48:00 Test Item Value Reference Range Interpretation Comments PARTIAL THROMBOPLASTIN TIME 80.3 seconds 22.5-36.0 H (BEAKER) (test code = 760) While on warfarin.PROTHROMBIN TIME/[id number] 05:46:00 Test Item Value Reference Range Interpretation [...] valves.While on warfarin.CBC W/PLT COUNT & AUTO [id number] 05:28:00 Test Item Value Reference Range Interpretation [...] 0-1 PERCENT (BEAKER) (test code = 2801) [id number] 22:09:00 Test Item Value Reference Range Interpretation Comments PARTIAL THROMBOPLASTIN TIME 61.5 seconds 22.5-36.0 H (BEAKER) (test code = 760) RAD, CHEST, 1 VIEW, NON [id number] 20:20:00Reason for exam:->eval right effusionShould this be [...] Anderson Verified Date/Time: 08/15/2018 20:20:24 Reading Location: [facility] Radiology Reading Room POCT-GLUCOSE [id number] 19:05:00 Test Item Value Reference Range Interpretation Comments POC-GLUCOSE METER 87 mg/dL 70-110 TESTED AT [place] [address] ([facility]) (test code = [facility] [address] 1538) POCT-GLUCOSE [id number] 13:12:00 Test Item Value Reference Range Interpretation Comments POC-GLUCOSE METER 162 mg/dL 70-110 H TESTED AT [place] [address] ([facility]) (test code = [facility] 1538) [address] [id number] 12:48:00 Test Item Value Reference Range Interpretation Comments PARTIAL THROMBOPLASTIN TIME 89.1 seconds 22.5-36.0 H ([facility]) (test code = 760) POCT-GLUCOSE [id number] 09:58:00 Test Item Value Reference Range Interpretation Comments POC-GLUCOSE METER 229 mg/dL 70-110 H TESTED AT [place] [address] ([facility]) (test code = [facility] 1538) [address] BASIC METABOLIC [id number] 05:40:00 Test Item Value Reference Range Interpretation [...] PATIEN TS. CBC W/PLT COUNT & AUTO [id number] 05:38:00 Test Item Value Reference Range Interpretation [...] 0-1 PERCENT (BEAKER) (test code = 2801) [id number] 05:28:00 Test Item Value Reference Range Interpretation Comments MAGNESIUM (BEAKER) (test code = 1.8 mg/dL 1.6-2.6 627) [id number] 04:47:00 Test Item Value Reference Range Interpretation Comments PARTIAL THROMBOPLASTIN TIME 60.9 seconds 22.5-36.0 H (BEAKER) (test code = 760) PROTHROMBIN TIME/[id number] 04:46:00 Test Item Value Reference Range Interpretation Comments PROTIME (BEAKER) (test code = 17.9 seconds 11.7-14.7 H 759) INR (BEAKER) (test code = 370) 1.5 <=5.9 RECOMMENDED COUMADIN/WARFARIN INR THERAPY RANGESSTANDARD DOSE: 2.0 - 3.0 Includes: PROPHYLAXIS forvenous thrombosis, systemic embolization; TREATMENT for venous thrombosis and/or pulmonary embolus.HIGH RISK: Target INR is 2.5-3.5 for patients with mechanical heart valves.[id number] 20:56:00 Test Item Value Reference Range Interpretation Comments PARTIAL THROMBOPLASTIN TIME 52.1 seconds 22.5-36.0 H (BEAKER) (test code = 760) CT, CHEST, WITHOUT [id number] 19:06:00S/p fall in Nov--> right effusion, tapped [...] MDReport Verified Date/Time: 08/14/2018 19:06:09 Reading Location: [address] Reading Room [id number] 12:40:00 Test Item Value Reference Range Interpretation Comments PARTIAL THROMBOPLASTIN TIME 48.4 seconds 22.5-36.0 H (BEAKER) (test code = 760) CD4 T CELL [id number] 11:15:00 Test Item Value Reference Range Interpretation [...] 107-698 L (BEAKER) (test code = 3491) [id number] 10:48:00 Test Item Value Reference Range Interpretation Comments PHOSPHORUS (BEAKER) (test code = 5.2 mg/dL 2.3-4.7 H 604) BASIC METABOLIC [id number] 07:13:00 Test Item Value Reference Range Interpretation [...] S NOT APPLICABLE FOR DIALYSIS PATIEN TS. [id number] 07:11:00 Test Item Value Reference Range Interpretation Comments MAGNESIUM (BEAKER) (test code = 1.8 mg/dL 1.6-2.6 627) [id number] 07:00:00 Test Item Value Reference Range Interpretation Comments PARTIAL THROMBOPLASTIN TIME 59.2 seconds 22.5-36.0 H (BEAKER) (test code = 760) PROTHROMBIN TIME/[id number] 06:59:00 Test Item Value Reference Range Interpretation [...] 0-1 PERCENT (BEAKER) (test code = 2801) [id number] 00:30:00 Test Item Value Reference Range Interpretation Comments PARTIAL THROMBOPLASTIN TIME 56.7 seconds 22.5-36.0 H (BEAKER) (test code = 760) BODY FLUID CELL COUNT WITH [id number] 19:28:00 Test Item Value Reference Range Interpretation Comments APPEARANCE FLUID (BEAKER) (test Cloudy Clear A code = 510) COLOR FLUID (BEAKER) (test code Red Colorless, Straw A = 511) RBC FLUID (BEAKER) (test code = 52253 /cu mm <=1 H 513) ADJUSTED WBC [...] Tube (test code = 2873) ALBUMIN, BODY [id number] 18:40:00 Test Item Value Reference Range Interpretation Comments ALBUMIN FLUID (BEAKER) (test code = 2.1 gm/dL 501) Reference Range: No Normals Assay performance has not been validated for this type of specimen.LACTATE DEHYDROGENASE (LDH), BODY [id number] 18:40:00 Test Item Value Reference Range Interpretation [...] 125-220 H code = 635) HEPATIC FUNCTION [id number] 18:40:00 Test Item Value Reference Range Interpretation [...] 6-55 347) RAD, CHEST, 1 VIEW, NON [id number] 17:56:00Reason for exam:->post Right thoracentesisShould this be [...] Arteaga Verified Date/Time: 08/13/2018 17:56:18 Reading Location: [facility] C013W Consult Reading Room U/S, [id number] 16:22:00Reason for exam:->shortness of breath, recurrent right pleural effusionShould this be performed at the bedside?->NoFINAL REPORT Ultrasound guided right thoracentesis, 08/13/2018. Clinical His tory: Right pleural effusion. Modality: Ultrasound. Sedation: None. Manager Ccu: Gini. Toddler Teacher: None. Estimated Blood Loss: 1cc Specimen: 1600 [...] Musa Verified Date/Time: 08/13/2018 16:22:16 Reading Location: [facility] P006J Ultrasound Reading Room [id number] 07:18:00 Test Item Value Reference Range Interpretation Comments MAGNESIUM (BEAKER) (test code = 2.0 mg/dL 1.6-2.6 627) BASIC METABOLIC [id number] 07:18:00 Test Item Value Reference Range Interpretation [...] PATIEN TS. RAD, CHEST, 1 VIEW, NON [id number] 06:25:00Reason for exam:->SOBShould this be performed at [...] Taylor Verified Date/Time: 08/13/2018 06:25:21 Reading Location: [address] Transitional Re ading Room [id number] 05:49:00 Test Item Value Reference Range Interpretation Comments PARTIAL THROMBOPLASTIN TIME 42.0 seconds 22.5-36.0 H (BEAKER) (test code = 760) PROTHROMBIN TIME/[id number] 05:48:00 Test Item Value Reference Range Interpretation [...] PERCENT (BEAKER) (test code = 2801) POCT-GLUCOSE [id number] 18:30:00 Test Item Value Reference Range Interpretation Comments POC-GLUCOSE METER 80 mg/dL 70-110 TESTED AT [facility] 6720 (BEAKER) (test code = [place] [address] 1538) RAD, CHEST, 1 VIEW, NON [id number] 13:46:00Reason for exam:->evaluate pleural effusionShould this be performed at the bedside?->YesFINAL REPORT Comparison: 08/02/2018 TECHNIQUE: Single view of the chest FINDINGS Bilateral interstitial and airspace opacities are stable. Bilateral pleural effusions seen, right greater than left. No gross new lung parenchymal changes. Post surgical changes in the mediastinum. IMPRESSION: No significant interval change. Signed: Kyle Rome MDReport Verified Date/Time: 08/06/2018 13:46:20 Reading Location: [facility] Radiology Reading Room [id number] 09:33:00 Test Item Value Reference Range Interpretation Comments PARTIAL THROMBOPLASTIN TIME 113.6 seconds 22.5-36.0 H (BEAKER) (test code = 760) [id number] 06:48:00 Test Item Value Reference Range Interpretation [...] heart valves.While on warfarin.While on warfarin.BASIC METABOLIC [id number] 06:45:00 Test Item Value Reference Range Interpretation [...] NOT APPLICABLE FOR DIALYSIS PATIEN TS. PROTHROMBIN [id number] 06:43:00 Test Item Value Reference Range Interpretation [...] WBC 0-0 (BEAKER) (test code = 413) [id number] 20:40:00 Test Item Value Reference Range Interpretation Comments PARTIAL THROMBOPLASTIN TIME 81.7 seconds 22.5-36.0 H (BEAKER) (test code = 760) [id number] 14:05:00 Test Item Value Reference Range Interpretation Comments PARTIAL THROMBOPLASTIN TIME 91.5 seconds 22.5-36.0 H (BEAKER) (test code = 760) BASIC METABOLIC [id number] 07:02:00 Test Item Value Reference Range Interpretation [...] S NOT APPLICABLE FOR DIALYSIS PATIEN TS. [id number] 06:47:00 Test Item Value Reference Range Interpretation [...] valves.Ok to add onOk to add onPROTHROMBIN TIME/[id number] 06:46:00 Test Item Value Reference Range Interpretation [...] % 0-1 PERCENT (BEAKER) (test code = 7301) [id number] 16:22:00 Test Item Value Reference Range Interpretation Comments PARTIAL THROMBOPLASTIN TIME 76.1 seconds 22.5-36.0 H (BEAKER) (test code = 760) BODY FLUID CULTURE + GRAM [id number] 09:10:00 Test Item Value Reference Range Interpretation Comments CULTURE (BEAKER) (test code No growth = 1095) GRAM STAIN RESULT (BEAKER) <1+ WBCs (test code = 1123) GRAM STAIN RESULT (BEAKER) No organisms seen (test code = 50738) CBC W/PLT COUNT & AUTO [id number] 07:23:00 Test Item Value Reference Range Interpretation [...] (BEAKER) (test code = 413) BASIC METABOLIC [id number] 07:05:00 Test Item Value Reference Range Interpretation [...] S NOT APPLICABLE FOR DIALYSIS PATIEN TS. [id number] 06:53:00 Test Item Value Reference Range Interpretation [...] heart valves.Ok to add onOk to add [id number] 06:53:00 Test Item Value Reference Range Interpretation Comments PARTIAL THROMBOPLASTIN TIME 70.3 seconds 22.5-36.0 H (BEAKER) (test code = 760) PROTHROMBIN TIME/[id number] 06:52:00 Test Item Value Reference Range Interpretation Comments PROTIME (BEAKER) (test code = 17.5 seconds 11.7-14.7 H 759) INR (BEAKER) (test code = 370) 1.4 <=5.9 RECOMMENDED COUMADIN/WARFARIN INR THERAPY RANGESSTANDARD DOSE: 2.0 - 3.0 Includes: PROPHYLAXIS forvenous thrombosis, systemic embolization; TREATMENT for venous thrombosis and/or pulmonary embolus.HIGH RISK: Target INR is 2.5-3.5 for patients with mechanical heart valves.PROTHROMBIN TIME/[id number] 06:51:00 Test Item Value Reference Range Interpretation Comments PROTIME (BEAKER) (test code = 17.7 seconds 11.7-14.7 H 759) INR (BEAKER) (test code = 370) 1.5 <=5.9 RECOMMENDED COUMADIN/WARFARIN INR THERAPY RANGESSTANDARD DOSE: 2.0 - 3.0 Includes: PROPHYLAXIS forvenous thrombosis, systemic embolization; TREATMENT for venous thrombosis and/or pulmonary embolus.HIGH RISK: Target INR is 2.5-3.5 for patients with mechanical heart valves.While on warfarin.[id number] 22:47:00 Test Item Value Reference Range Interpretation Comments PARTIAL THROMBOPLASTIN TIME 73.6 seconds 22.5-36.0 H (BEAKER) (test code = 760) [id number] 13:08:00 Test Item Value Reference Range Interpretation Comments PARTIAL THROMBOPLASTIN TIME 49.2 seconds 22.5-36.0 H (BEAKER) (test code = 760) BASIC METABOLIC [id number] 06:56:00 Test Item Value Reference Range Interpretation [...] S NOT APPLICABLE FOR DIALYSIS PATIEN TS. [id number] 06:56:00 Test Item Value Reference Range Interpretation Comments PARTIAL THROMBOPLASTIN TIME 67.5 seconds 22.5-36.0 H (BEAKER) (test code = 760) [id number] 06:45:00 Test Item Value Reference Range Interpretation [...] valves.Ok to add onOk to add onPROTHROMBIN TIME/[id number] 06:44:00 Test Item Value Reference Range Interpretation [...] /100 WBC 0-0 (test code = 413) [id number] 02:18:00 Test Item Value Reference Range Interpretation Comments PARTIAL THROMBOPLASTIN TIME 67.1 seconds 22.5-36.0 H (BEAKER) (test code = 760) [id number] 18:56:00 Test Item Value Reference Range Interpretation Comments PARTIAL THROMBOPLASTIN TIME 72.5 seconds 22.5-36.0 H (BEAKER) (test code = 760) POCT-GLUCOSE [id number] 13:08:00 Test Item Value Reference Range Interpretation Comments POC-GLUCOSE METER 121 mg/dL 70-110 H TESTED AT [facility] 6720 ([facility]) (test code = [place] 1538) [address] [id number] 12:07:00 Test Item Value Reference Range Interpretation Comments PARTIAL THROMBOPLASTIN TIME 50.7 seconds 22.5-36.0 H (BEAKER) (test code = 760) Ok to add onPROTHROMBIN TIME/[id number] 12:05:00 Test Item Value Reference Range Interpretation [...] = 413) RAD, CHEST, 1 VIEW, NON [id number] 11:24:00Reason for exam:->pleural effusionShould this be performed at the bedside?->YesFINAL REPORT AP chest HISTORY: Pleural effusion COMPARISON: 08/01/2018 IMPRESS ION:Intact skeleton. Cardiomegaly. Moderate interstitial edema. Moderate right and small left effusions. No pneumothorax. Signed: Mandy Chairez MDReport Verified Date/Time: 08/02/2018 11:24:33 Reading Location: [facility] C0[facility] Ortho Consult Reading Room BASIC METABOLIC [id number] 02:55:00 Test Item Value Reference Range Interpretation [...] S NOT APPLICABLE FOR DIALYSIS PATIEN TS. [id number] 02:39:00 Test Item Value Reference Range Interpretation Comments PARTIAL THROMBOPLASTIN TIME 51.6 seconds 22.5-36.0 H (BEAKER) (test code = 760) CBC W/PLT COUNT & AUTO [id number] 02:30:00 Test Item Value Reference Range Interpretation [...] = 2801) BODY FLUID CELL COUNT WITH [id number] 21:13:00 Test Item Value Reference Range Interpretation Comments APPEARANCE FLUID (BEAKER) (test Bloody Clear A code = 510) COLOR FLUID (BEAKER) (test code Sunil Colorless, Straw A = 511) RBC FLUID (BEAKER) (test code = 30446 /cu mm <=1 H 513) ADJUSTED WBC [...] Tube (test code = 2873) ALBUMIN, BODY [id number] 20:00:00 Test Item Value Reference Range Interpretation Comments ALBUMIN FLUID (BEAKER) (test code = 2.1 gm/dL 501) Reference Range: No Normals Assay performance has not been validated for this type of specimen.LACTATE DEHYDROGENASE (LDH), BODY [id number] 20:00:00 Test Item Value Reference Range Interpretation [...] of specimen.RAD, CHEST, PA OR AP, 1 [id number] 17:08:00Ultrasound Room 1Reason for exam:->s/p Right sided [...] Vail Verified Date/Time: 08/01/2018 17:08:13 Reading Location: [facility] Radiology Reading Room U/S, [id number] 17:03:00 Laterality?->RightReason for exam:->large pleural effusionFINAL REPORT HISTORY: Right pleural effusion Following informed written consent, the patient's right posterior chest wall was prepped and draped in the usual sterile manner. 2% lidocaine was given locally for anesthesia. No conscious sedation was administered. Vital signs were monitored and remained stable. Using ultrasound guidance and a 5 Burmese angiocatheter, access was gain ed to the [...] Seymour Verified Date/Time: 08/01/2018 17:03:15 Reading Location: [address] Ultrasound Reading Room RAD, CHEST, 1 VIEW, NON [id number] 12:40:00Reason for exam:->pleural effusion; shortness of breathShould [...] MDReport Verified Date/Time: 08/01/2018 12:40:42 [facility] Reading Room APTT 2018-08-01 11:33:00 Test Item Value Reference Range Interpretation Comments PARTIAL THROMBOPLASTIN TIME 118.1 seconds 22.5-36.0 H (BEAKER) (test code = 760) BASIC METABOLIC [id number] 02:07:00 Test Item Value Reference Range Interpretation [...] S NOT APPLICABLE FOR DIALYSIS PATIEN TS. [id number] 01:55:00 Test Item Value Reference Range Interpretation [...] is 2.5-3.5 for patients with mechanical heart valves.[id number] 01:55:00 Test Item Value Reference Range Interpretation Comments PARTIAL THROMBOPLASTIN TIME 96.8 seconds 22.5-36.0 H (BEAKER) (test code = 760) CBC W/PLT COUNT & AUTO [id number] 01:38:00 Test Item Value Reference Range Interpretation [...] 0-1 PERCENT (BEAKER) (test code = 2801) [id number] 18:58:00 Test Item Value Reference Range Interpretation Comments PARTIAL THROMBOPLASTIN TIME 61.7 seconds 22.5-36.0 H (BEAKER) (test code = 760) [id number] 09:22:00 Test Item Value Reference Range Interpretation Comments PARTIAL THROMBOPLASTIN TIME 61.5 seconds 22.5-36.0 H (BEAKER) (test code = 760) BASIC METABOLIC [id number] 02:14:00 Test Item Value Reference Range Interpretation [...] S NOT APPLICABLE FOR DIALYSIS PATIEN TS. [id number] 01:43:00 Test Item Value Reference Range Interpretation [...] is 2.5-3.5 for patients with mechanical heart valves.[id number] 01:43:00 Test Item Value Reference Range Interpretation Comments PARTIAL THROMBOPLASTIN TIME 62.7 seconds 22.5-36.0 H (BEAKER) (test code = 760) CBC W/PLT COUNT & AUTO [id number] 01:32:00 Test Item Value Reference Range Interpretation [...] 0-1 PERCENT (BEAKER) (test code = 2801) [id number] 18:38:00 Test Item Value Reference Range Interpretation Comments PARTIAL THROMBOPLASTIN TIME 38.9 seconds 22.5-36.0 H (BEAKER) (test code = 760) Prior to initiating heparinPLATELET [id number] 18:17:00 Test Item Value Reference Range Interpretation Comments PLATELET COUNT (BEAKER) (test 115 K/CU MM 150-450 L code = 756) RAD, CHEST, 2 [id number] 18:05:00Reason for exam:->sob and pleural effusionFINAL REPORT [...] pneumonia cannot be excluded. Signed: Bonny Sykes Verified Date/Time: 07/30/2018 18:05:46Reading Location: [address] Consult Reading Room C METABOLIC [id number] 05:26:00 Test Item Value Reference Range Interpretation [...] S NOT APPLICABLE FOR DIALYSIS PATIEN TS. [id number] 05:25:00 Test Item Value Reference Range Interpretation [...] 2.5-3.5 for patients with mechanical heart valves.PROTHROMBIN TIME/[id number] 05:24:00 Test Item Value Reference Range Interpretation [...] (test code = 2801) HEPATITIS B SURFACE [id number] 12:09:00 Test Item Value Reference Range Interpretation Comments HEPATITIS B SURFACE ANTIGEN (2) Nonreactive Nonreactive (BEAKER) (test code = 2585) POCT-GLUCOSE [id number] 07:50:00 Test Item Value Reference Range Interpretation Comments POC-GLUCOSE METER 93 mg/dL 70-110 TESTED AT [facility] 6720 (BEAKER) (test code = [place] [address] 1538) [id number] 04:59:00 Test Item Value Reference Range Interpretation [...] for patients with mechanical heart valves.BASIC METABOLIC [id number] 04:59:00 Test Item Value Reference Range Interpretation [...] PATIEN TS. CBC W/PLT COUNT & AUTO [id number] 04:51:00 Test Item Value Reference Range Interpretation [...] (test code = 2801) AFB CULTURE + [id number] 16:13:00 Test Item Value Reference Range Interpretation Comments CULTURE (BEAKER) (test No acid-fast bacilli code = 1095) isolated in 42 days AFB SMEAR (BEAKER) No acid fast bacilli (test code = 994) seen AFB CULTURE + [id number] 16:13:00 Test Item Value Reference Range Interpretation Comments CULTURE (BEAKER) (test No acid-fast bacilli code = 1095) isolated in 42 days AFB SMEAR (BEAKER) No acid fast bacilli (test code = 994) seen FUNGUS CULTURE + [id number] 07:13:00 Test Item Value Reference Range Interpretation Comments CULTURE (BEAKER) (test No fungus isolated in code = 1095) 28 days FUNGUS SMEAR (BEAKER) No fungi seen (test code = 1406) FUNGUS CULTURE + [id number] 07:13:00 Test Item Value Reference Range Interpretation Comments CULTURE (BEAKER) (test No fungus isolated in code = 1095) 28 days FUNGUS SMEAR (BEAKER) No fungi seen (test code = 1406) TISSUE [id number] 19:17:00Surgical Pathology Report Case: [id number] Authorizing Provider: Juliana Martinez MD Collected: 05/23/2018 0825 Ordering Location: [facility] Received: 05/23/2018 0923 SERVICES Pathologist: Brigida Parks MD Specimen: Soft Tissue, Other, LEFT GROIN - TISSUE BIOPSY SKIN AND SOFT TISSUE,GROIN,LEFT, BIOPSY: - ABSCESSES, GRANULOMAS AND CHRONIC INFLAMMATION - NEGATIVE FOR DYSPLASIA OR MALIGNANCY - AFB AND GMS STAINS ARE NEGATIVE (SEE COMMENT) Signing Pathologist Direct Phone Line: [phone] signed by Brigida Parks MD on 06/02/2018 at 7:17 PMCorrelation with culture studies is recommended.[id number] abscess groinLeft groin tissue biopsyReceived fresh labeled "soft tissue, other", description "left groin tissue biopsy" are two dark-porter, wrinkled,hair- bearing strips of skin measuring 1.5 and 2.6 cm in length, 0.3 cm in diameter and excised to a depth of 0.3 cm.Sectioning reveals no discrete masses.The specimen is entirely submitted in cassettesA1. DB/ewPOCT-GLUCOSE [id number] 08:51:00 Test Item Value Reference Range Interpretation Comments POC-GLUCOSE METER 101 mg/dL 70-110 TESTED AT [facility] 6720 (BEAKER) (test code = [place] 1538) [address] CBC W/PLT COUNT & AUTO [id number] 06:01:00 Test Item Value Reference Range Interpretation [...] PERCENT (BEAKER) (test code = 2801) PROTHROMBIN [id number] 05:51:00 Test Item Value Reference Range Interpretation Comments PROTIME (BEAKER) (test code = 25.9 seconds 11.7-14.7 H 759) INR (BEAKER) (test code = 370) 2.4 <=5.9 RECOMMENDED COUMADIN/WARFARIN INR THERAPY RANGESSTANDARD DOSE: 2.0 - 3.0 Includes: PROPHYLAXIS forvenous thrombosis, systemic embolization; TREATMENT for venous thrombosis and/or pulmonary embolus.HIGH RISK: Target INR is 2.5-3.5 for patients with mechanical heart valves.BASIC METABOLIC [id number] 05:46:00 Test Item Value Reference Range Interpretation [...] mg/dL 8.4-10.2 (test code = 697) EGFR ([facility]) (test 14 mL/min/1.73 ESTIMA JAYLA GFR IS code = 1092) sq m NOT ACCURATE CREATININE CLEARANCE IN PREDICTING GLOMERULAR FILTRATION RATE . ESTIMATED GFR I S NOT APPLICABLE FOR DIALYSIS PATIEN TS. POCT-GLUCOSE [id number] 20:34:00 Test Item Value Reference Range Interpretation Comments POC-GLUCOSE METER 261 mg/dL 70-110 H TESTED AT [place] [address] ([facility]) (test code = [facility] 1538) [address] POCT-GLUCOSE [id number] 18:12:00 Test Item Value Reference Range Interpretation Comments POC-GLUCOSE METER 139 mg/dL 70-110 H TESTED AT [place] [address] ([facility]) (test code = [facility] 1538) [address] POCT-GLUCOSE [id number] 11:51:00 Test Item Value Reference Range Interpretation Comments POC-GLUCOSE METER 147 mg/dL 70-110 H TESTED AT [place] [address] ([facility]) (test code = [facility] 1538) [address] POCT-GLUCOSE [id number] 08:42:00 Test Item Value Reference Range Interpretation Comments POC-GLUCOSE METER 104 mg/dL 70-110 TESTED AT [place] [address] ([facility]) (test code = [facility] 1538) [address] CBC W/PLT COUNT & AUTO [id number] 06:56:00 Test Item Value Reference Range Interpretation Comments WHITE BLOOD CELL COUNT ([facility]) 8.0 K/ L 3.5-10.5 (test code = 775) RED BLOOD CELL COUNT ([facility]) 3.40 M/ L 4.63-6.08 L (test code = 761) HEMOGLOBIN (BEAKER) (test code = 10.2 GM/DL 13.7-17.5 L 410) HEMATOCRIT ([facility]) (test code = 32.0 % 40.1-51.0 L 411) MEAN CORPUSCULAR VOLUME ([facility]) 94.1 fL 79.0-92.2 H (test [...] (BEAKER) (test code = 2801) BASIC METABOLIC [id number] 06:49:00 Test Item Value Reference Range Interpretation [...] NOT APPLICABLE FOR DIALYSIS PATIEN TS. PROTHROMBIN TIME/[id number] 06:46:00 Test Item Value Reference Range Interpretation Comments PROTIME (BEAKER) (test code = 26.9 seconds 11.7-14.7 H 759) INR (BEAKER) (test code = 370) 2.5 <=5.9 RECOMMENDED COUMADIN/WARFARIN INR THERAPY RANGESSTANDARD DOSE: 2.0 - 3.0 Includes: PROPHYLAXIS forvenous thrombosis, systemic embolization; TREATMENT for venous thrombosis and/or pulmonary embolus.HIGH RISK: Target INR is 2.5-3.5 for patients with mechanical heart valves.ANAEROBIC [id number] 00:38:00 Test Item Value Reference Range Interpretation Comments CULTURE (BEAKER) (test No anaerobes isolated code = 1095) ANAEROBIC [id number] 00:38:00 Test Item Value Reference Range Interpretation Comments CULTURE (BEAKER) (test No anaerobes isolated code = 1095) POCT-GLUCOSE [id number] 20:43:00 Test Item Value Reference Range Interpretation Comments POC-GLUCOSE METER 124 mg/dL 70-110 H TESTED AT [place] [address] ([employer]) (test code = FOSTER BRAND[place] 1538) [address] POCT-GLUCOSE [id number] 17:17:00 Test Item Value Reference Range Interpretation Comments POC-GLUCOSE METER 190 mg/dL 70-110 H TESTED AT [facility] 67 ([employer]) (test code = FOSTER [place] 1538) [address] POCT-GLUCOSE [id number] 11:54:00 Test Item Value Reference Range Interpretation Comments POC-GLUCOSE METER 195 mg/dL 70-110 H TESTED AT [place] [address] ([employer]) (test code = FOSTER BRAND[place] 1538) [address] C. DIFFICILE GDH [id number] 11:16:00 Test Item Value Reference Range Interpretation Comments CDT TOXIN (test code Negative Negative = 6307280619) CDT GDH ANTIGEN (test Negative Negative No ind ication of code = 1179670238) Clostridi um difficile infection and n o colonization. Discontinue ent kenrick isolation and t herapy. Testing performed by [employer] Rapid Cassette Assay. For GDH, published sensitivity of the assay is 98.7% compared to cytotoxicity testing. For Toxin AB, published sensitivity is 87.8% and specificity 99.4% compared to cytotoxicity testing.Verification of kit performance was done by the [facility] Microbiology Lab prior to clinical use.SURGICALLY OBTAINED CULTURE + GRAM [id number] 09:22:00 Test Item Value Reference Interpretation Comments [...] No organisms seen (BEAKER) (test code = 461275) SURGICALLY OBTAINED CULTURE + GRAM [id number] 09:20:00 Test Item Value Reference Range Interpretation Comments CULTURE (BEAKER) (test code No growth = 1095) GRAM STAIN RESULT (BEAKER) 4+ WBCs (test code = 1123) GRAM STAIN RESULT (BEAKER) No organisms seen (test code = 72786) POCT-GLUCOSE [id number] 08:21:00 Test Item Value Reference Range Interpretation Comments POC-GLUCOSE METER 101 mg/dL 70-110 TESTED AT [facility] 6720 (BEAKER) (test code = FOSTER BR[place] 1538) [address] BASIC METABOLIC [id number] 07:57:00 Test Item Value Reference Range Interpretation [...] NOT APPLICABLE FOR DIALYSIS PATIEN TS. PROTHROMBIN [id number] 06:36:00 Test Item Value Reference Range Interpretation [...] PERCENT (BEAKER) (test code = 2801) POCT-GLUCOSE [id number] 21:40:00 Test Item Value Reference Range Interpretation Comments POC-GLUCOSE METER 176 mg/dL 70-110 H TESTED AT [facility] 6720 [facility] (test code = [place] 1538) [address] POCT-GLUCOSE [id number] 16:07:00 Test Item Value Reference Range Interpretation Comments POC-GLUCOSE METER 120 mg/dL 70-110 H TESTED AT [facility] 6720 (BEAKER) (test code = [place] 1538) [address] POCT-GLUCOSE [id number] 08:31:00 Test Item Value Reference Range Interpretation Comments POC-GLUCOSE METER 119 mg/dL 70-110 H TESTED AT [facility] 6720 (BEAKER) (test code = FOSTER [place] 1535) [address] BASIC METABOLIC [id number] 08:19:00 Test Item Value Reference Range Interpretation [...] APPLICABLE FOR DIALYSIS PATIEN TS. VANCOMYCIN LEVEL, [id number] 08:16:00 Test Item Value Reference Range Interpretation Comments VANCOMYCIN RANDOM (BEAKER) (test 17.6 ug/mL code = 523) Reference Range: No NormalsPROTHROMBIN [id number] 07:21:00 Test Item Value Reference Range Interpretation [...] PERCENT (BEAKER) (test code = 2801) BLOOD [id number] 06:00:00 Test Item Value Reference Range Interpretation Comments CULTURE (BEAKER) (test No growth in 5 days code = 1095) BLOOD [id number] 00:00:00 Test Item Value Reference Range Interpretation Comments CULTURE (BEAKER) (test No growth in 5 days code = 1095) POCT-GLUCOSE [id number] 22:05:00 Test Item Value Reference Range Interpretation Comments POC-GLUCOSE METER 169 mg/dL 70-110 H TESTED AT [place] [address] (BEAKER) (test code = [facility] 1538) [address] POCT-GLUCOSE [id number] 18:20:00 Test Item Value Reference Range Interpretation Comments POC-GLUCOSE METER 110 mg/dL 70-110 TESTED AT [place] [address] ([facility] (test code = [facility] 1538) [address] POCT-GLUCOSE [id number] 17:17:00 Test Item Value Reference Range Interpretation Comments POC-GLUCOSE METER 99 mg/dL 70-110 TESTED AT [place] [address] (BEAKER) (test code = [facility] [address] 1538) SPIN/CONCENTRATION [id number] 14:49:00 Test Item Value Reference Range Interpretation Comments CONCENTRATION CHARGED (BEAKER) (test Done code = 2657) SPIN/CONCENTRATION [id number] 14:49:00 Test Item Value Reference Range Interpretation Comments CONCENTRATION CHARGED (BEAKER) (test Done code = 2657) POCT-GLUCOSE [id number] 12:13:00 Test Item Value Reference Range Interpretation Comments POC-GLUCOSE METER 188 mg/dL 70-110 H TESTED AT [place] [address] (BEAKER) (test code = [facility] 1538) [address] BASIC METABOLIC [id number] 09:56:00 Test Item Value Reference Range Interpretation [...] NOT APPLICABLE FOR DIALYSIS PATIEN TS. POCT-GLUCOSE [id number] 07:45:00 Test Item Value Reference Range Interpretation Comments POC-GLUCOSE METER 108 mg/dL 70-110 TESTED AT [facility] 6720 ([facility]) (test code = [place] 1538) [address] CBC W/PLT COUNT & AUTO [id number] 07:00:00 Test Item Value Reference Range Interpretation [...] PERCENT (BEAKER) (test code = 2801) PROTHROMBIN [id number] 06:47:00 Test Item Value Reference Range Interpretation Comments PROTIME (BEAKER) (test code = 20.7 seconds 11.7-14.7 H 759) INR (BEAKER) (test code = 370) 1.8 <=5.9 RECOMMENDED COUMADIN/WARFARIN INR THERAPY RANGESSTANDARD DOSE: 2.0 - 3.0 Includes: PROPHYLAXIS forvenous thrombosis, systemic embolization; TREATMENT for venous thrombosis and/or pulmonary embolus.HIGH RISK: Target INR is 2.5-3.5 for patients with mechanical heart valves.POCT-GLUCOSE [id number] 20:42:00 Test Item Value Reference Range Interpretation Comments POC-GLUCOSE METER 134 mg/dL 70-110 H TESTED AT [facility] 6720 ([facility]) (test code = [place] 1538) [address] POCT-GLUCOSE [id number] 13:29:00 Test Item Value Reference Range Interpretation Comments POC-GLUCOSE METER 209 mg/dL 70-110 H TESTED AT [facility] 6720 ([facility]) (test code = [facility] [place] 1538) [address] POCT-GLUCOSE [id number] 08:53:00 Test Item Value Reference Range Interpretation Comments POC-GLUCOSE METER 103 mg/dL 70-110 TESTED AT [facility] 6720 (BEAKER) (test code = [place] 1538) [address] BASIC METABOLIC [id number] 07:47:00 Test Item Value Reference Range Interpretation [...] DIALYSIS PATIEN TS. WOUND CULTURE + GRAM [id number] 07:44:00 Test Item Value Reference Range Interpretation Comments CULTURE (BEAKER) (test code No growth = 1095) GRAM STAIN RESULT (BEAKER) No WBCs (test code = 1123) GRAM STAIN RESULT (BEAKER) No organisms seen (test code = 87150) [id number] 07:38:00 Test Item Value Reference Range Interpretation Comments PHOSPHORUS (BEAKER) (test code = 3.2 mg/dL 2.3-4.7 604) CBC W/PLT COUNT & AUTO [id number] 06:35:00 Test Item Value Reference Range Interpretation [...] PERCENT (BEAKER) (test code = 2801) PROTHROMBIN [id number] 06:32:00 Test Item Value Reference Range Interpretation Comments PROTIME (BEAKER) (test code = 23.2 seconds 11.7-14.7 H 759) INR (BEAKER) (test code = 370) 2.1 <=5.9 RECOMMENDED COUMADIN/WARFARIN INR THERAPY RANGESSTANDARD DOSE: 2.0 - 3.0 Includes: PROPHYLAXIS forvenous thrombosis, systemic embolization; TREATMENT for venous thrombosis and/or pulmonary embolus.HIGH RISK: Target INR is 2.5-3.5 for patients with mechanical heart valves.POCT-GLUCOSE [id number] 21:21:00 Test Item Value Reference Range Interpretation Comments POC-GLUCOSE METER 177 mg/dL 70-110 H TESTED AT [place] [address] ([facility]) (test code = [facility] 1538) [address] POCT-GLUCOSE [id number] 17:53:00 Test Item Value Reference Range Interpretation Comments POC-GLUCOSE METER 89 mg/dL 70-110 TESTED AT [place] [address] ([facility]) (test code = [facility] [address] 1538) IRON, TIBC, % SAT. (WITHOUT FERRITIN)2018-05-22 17:45:00 Test Item Value Reference Range Interpretation Comments IRON (BEAKER) (test code = 547) 63 ug/dL 40-160 TOTAL IRON BINDING CAPACITY 203 ug/dL 250-450 L ([facility]) (test code = 769) IRON % SATURATION (2) ([facility]) 31 % 20-55 (test code = 2590) [id number] 16:07:00 Test Item Value Reference Range Interpretation Comments PHOSPHORUS ([facility] (test code = 5.4 mg/dL 2.3-4.7 H 604) POCT-GLUCOSE [id number] 12:41:00 Test Item Value Reference Range Interpretation Comments POC-GLUCOSE METER 110 mg/dL 70-110 TESTED AT [place] [address] ([facility]) (test code = [facility] 1538) [address] POCT-GLUCOSE [id number] 07:00:00 Test Item Value Reference Range Interpretation Comments POC-GLUCOSE METER 159 mg/dL 70-110 H TESTED AT [place] [address] ([facility]) (test code = [facility] 1538) [address] BASIC METABOLIC [id number] 05:19:00 Test Item Value Reference Range Interpretation [...] S NOT APPLICABLE FOR DIALYSIS PATIEN TS. [id number] 05:18:00 Test Item Value Reference Range Interpretation Comments MAGNESIUM (BEAKER) (test code = 1.9 mg/dL 1.6-2.6 627) PROTHROMBIN [id number] 05:03:00 Test Item Value Reference Range Interpretation [...] PERCENT (BEAKER) (test code = 2801) POCT-GLUCOSE [id number] 23:35:00 Test Item Value Reference Range Interpretation Comments POC-GLUCOSE METER 190 mg/dL 70-110 H TESTED AT [place] [address] (BEAKER) (test code = FOSTER BR[place] 1538) [address] POCT-GLUCOSE [id number] 17:16:00 Test Item Value Reference Range Interpretation Comments POC-GLUCOSE METER 122 mg/dL 70-110 H TESTED AT [place] [address] (BEAKER) (test code = FOSTER Paul [place] 1538) [address] U/S, TESTICULAR (SCROTUM)2018-05-21 14:53:00Reason for exam:->testicular swellingFINAL [...] MDReport Verified Date/Time: 05/21/2018 14:53:00 Reading Location: [address] UltrasoundReading Room POCT- GLUCOSE [id number] 11:22:00 Test Item Value Reference Range Interpretation Comments POC-GLUCOSE METER 144 mg/dL 70-110 H TESTED AT [facility] 6720 ([facility]) (test code = [place] 1538) [address] POCT-GLUCOSE [id number] 07:05:00 Test Item Value Reference Range Interpretation Comments POC-GLUCOSE METER 171 mg/dL 70-110 H TESTED AT [facility] 6720 (BEAKER) (test code = [place] 1538) [address] BASIC METABOLIC [id number] 06:19:00 Test Item Value Reference Range Interpretation [...] S NOT APPLICABLE FOR DIALYSIS PATIEN TS. [id number] 06:04:00 Test Item Value Reference Range Interpretation Comments MAGNESIUM (BEAKER) (test code = 1.9 mg/dL 1.6-2.6 627) PROTHROMBIN [id number] 05:31:00 Test Item Value Reference Range Interpretation [...] PERCENT (BEAKER) (test code = 2801) POCT-GLUCOSE [id number] 21:29:00 Test Item Value Reference Range Interpretation Comments POC-GLUCOSE METER 156 mg/dL 70-110 H TESTED AT [place] [address] ([facility]) (test code = FOSTER [place] [facility] 1538) [address] POCT-GLUCOSE [id number] 18:14:00 Test Item Value Reference Range Interpretation Comments POC-GLUCOSE METER 93 mg/dL 70-110 TESTED AT [place] [address] ([facility]) (test code = FOSTER [place] [facility] [address] 1538) PROTHROMBIN [id number] 13:26:00 Test Item Value Reference Range Interpretation Comments PROTIME ([facility]) (test code = 42.0 seconds 11.7-14.7 H 759) INR ([facility]) (test code = 370) 4.4 <=5.9 RECOMMENDED COUMADIN/WARFARIN INR THERAPY RANGESSTANDARD DOSE: 2.0 - 3.0 Includes: PROPHYLAXIS forvenous thrombosis, systemic embolization; TREATMENT for venous thrombosis and/or pulmonary embolus.HIGH RISK: Target INR is 2.5-3.5 for patients with mechanical heart valves.LACTIC ACID, VENOUS, WHOLE BLOOD 2018-05-20 13:18:00 Test Item Value Reference Range Interpretation Comments LACTATE BLOOD VENOUS (2) ([facility]) 0.8 mmol/L 0.5-2.2 (test code = 2872) Effective 01/04/2016: Units/Reference Range ChangeNew: 0.5-2.2 mmol/L Previous: 5-20 mg/dLPOCT-GLUCOSE [id number] 12:04:00 Test Item Value Reference Range Interpretation Comments POC-GLUCOSE METER 111 mg/dL 70-110 H TESTED AT [place] [address] ([facility]) (test code = FOSTER Paul [facility] 1538) [address] CD4 T CELL [id number] 12:04:00 Test Item Value Reference Range Interpretation Comments CD4/CD8 RATIO FC ([facility]) (test code = 0.76 0.70-3.23 2126) HEPATITIS B SURFACE [id number] 11:32:00 Test Item Value Reference Range Interpretation Comments HEPATITIS B SURFACE ANTIGEN (2) Nonreactive Nonreactive ([facility]) (test code = 2585) VANCOMYCIN LEVEL, [id number] 11:10:00 Test Item Value Reference Range Interpretation Comments VANCOMYCIN RANDOM (BEAKER) (test 20.7 ug/mL code = 523) Reference Range: No NormalsBASIC METABOLIC [id number] 09:19:00 Test Item Value Reference Range Interpretation [...] S NOT APPLICABLE FOR DIALYSIS PATIEN TS. [id number] 09:16:00 Test Item Value Reference Range Interpretation Comments MAGNESIUM (BEAKER) (test code = 2.1 mg/dL 1.6-2.6 627) RAD, CHEST, 1 VIEW, NON [id number] 07:56:00Reason for exam:->pleural effusion seen on outside hospital imagingShould this be performed at the bedside?->YesFINAL REPORT Chest one view compared to February 23 Discussion: Small effusions are similar. Replaced cardiac valve and atrial appendage clip noted. No pneumothorax. Unchanged cardiac pulmonary appearance. Signed: Rhea Colindreseport Verified Date/Time: 05/20/2018 07:56:50 Reading Location: [facility] Radiology Reading Room POCT-GLUCOSE [id number] 07:32:00 Test Item Value Reference Range Interpretation Comments POC-GLUCOSE METER 105 mg/dL 70-110 TESTED AT [facility] 6720 (BEAKER) (test code = [place] 1530) [address] CBC W/PLT COUNT & AUTO [id number] 07:01:00 Test Item Value Reference Range Interpretation [...] (BEAKER) (test code = 2801) VANCOMYCIN LEVEL, [id number] 22:39:00 Test Item Value Reference Range Interpretation Comments VANCOMYCIN RANDOM (BEAKER) (test 22.0 ug/mL code = 523) Reference Range: No NormalsCOMPREHENSIVE METABOLIC [id number] 22:39:00 Test Item Value Reference Range Interpretation [...] S NOT APPLICABLE FOR DIALYSIS PATIEN TS. [id number] 22:38:00 Test Item Value Reference Range Interpretation Comments PHOSPHORUS (BEAKER) (test code = 4.5 mg/dL 2.3-4.7 604) [id number] 22:38:00 Test Item Value Reference Range Interpretation Comments MAGNESIUM (BEAKER) (test code = 2.0 mg/dL 1.6-2.6 627) [id number] 22:29:00 Test Item Value Reference Range Interpretation Comments PARTIAL THROMBOPLASTIN TIME 45.0 seconds 22.5-36.0 H (GAELAKER) (test code = 760) PROTHROMBIN [id number] 22:28:00 Test Item Value Reference Range Interpretation Comments PROTIME (BEAKER) (test code = 48.1 seconds 11.7-14.7 H 759) INR (BEZOILA) (test code = 370) 5.2 <=5.9 RECOMMENDED COUMADIN/WARFARIN INR THERAPY RANGESSTANDARD DOSE: 2.0 - 3.0 Includes: PROPHYLAXIS forvenous thrombosis, systemic embolization; TREATMENT for venous thrombosis and/or pulmonary embolus.HIGH RISK: Target INR is 2.5-3.5 for patients with mechanical heart valves.POCT-GLUCOSE [id number] 21:38:00 Test Item Value Reference Range Interpretation Comments POC-GLUCOSE METER 105 mg/dL 70-110 TESTED AT [facility] 6720 (JARROD) (test code = [place] 1538) [address] XR Ankle Complete 3+ Views [id number] 22:30:07Patient: CALEB LUGO Date/Time05/12/2018 22:24 CDTReason for [...] FSigned (Electronic Signature): 05/12/2018 9:48 amBASIC METABOLIC [id number] 11:15:00 Test Item Value Reference Range Interpretation [...] (BEAKER) (test code = 700) BASIC METABOLIC [id number] 02:55:00 Test Item Value Reference Range Interpretation [...] H (BEAKER) (test code = 700) TROPONIN [id number] 02:30:00 Test Item Value Reference Range Interpretation [...] failure, acidosis, acute neurological disease, and persistent tachyarrhythmia.[id number] 02:21:00 Test Item Value Reference Range Interpretation Comments MAGNESIUM (BEAKER) (test code = 1.8 mg/dL 1.6-2.6 627) CBC W/PLT COUNT & AUTO [id number] 00:24:00 Test Item Value Reference Range Interpretation [...] 0-1 PERCENT (BEAKER) (test code = 2801) [id number] 00:01:00 Test Item Value Reference Range Interpretation [...] mechanical heart valves.RAD, CHEST, 1 VIEW, NON [id number] 23:39:00Reason for exam:->chest painShould this be performed [...] MDReport Verified Date/Time: 02/23/2018 23:39:58 Reading Location: [address] Reading Room POCT-GLUCOSE [id number] 19:47:00 Test Item Value Reference Range Interpretation Comments POC-GLUCOSE METER 94 mg/dL 70-110 TESTED AT [facility] 6720 ([facility]) ([facility] [address] 1538) POCT-GLUCOSE [id number] 17:07:00 Test Item Value Reference Range Interpretation Comments POC-GLUCOSE METER 176 mg/dL 70-110 H TESTED AT [place] [address] ([facility]) (test code = FOSTER [place] [facility] 1538) [address] POCT-GLUCOSE [id number] 12:31:00 Test Item Value Reference Range Interpretation Comments POC-GLUCOSE METER 84 mg/dL 70-110 TESTED AT [place] [address] ([facility]) (test code = FOSTER [place] [facility] [address] 1538) [id number] 10:40:00 Test Item Value Reference Range Interpretation Comments PARTIAL THROMBOPLASTIN TIME 88.5 seconds 22.5-36.0 H ([facility]) (test code = 760) OCCULT BLOOD, [id number] 09:36:00 Test Item Value Reference Range Interpretation Comments FECAL OCCULT BLOOD ([facility]) (test Negative Negative code = 618) POCT-GLUCOSE [id number] 08:51:00 Test Item Value Reference Range Interpretation Comments POC-GLUCOSE METER 223 mg/dL 70-110 H TESTED AT [place] [address] ([facility]) (test code = FOSTER [place] [facility] 1538) [address] [id number] 04:14:00 Test Item Value Reference Range Interpretation Comments PARTIAL THROMBOPLASTIN TIME 80.3 seconds 22.5-36.0 H ([facility]) (test code = 760) While on warfarin.PROTHROMBIN TIME/[id number] 04:13:00 Test Item Value Reference Range Interpretation Comments PROTIME ([facility]) (test code = 23.8 seconds 11.7-14.7 H 759) INR ([facility]) (test code = 370) 2.1 <=5.9 RECOMMENDED COUMADIN/WARFARIN INR THERAPY RANGESSTANDARD DOSE: 2.0 - 3.0 Includes: PROPHYLAXIS forvenous thrombosis, systemic embolization; TREATMENT for venous thrombosis and/or pulmonary embolus.HIGH RISK: Target INR is 2.5-3.5 for patients with mechanical heart valves.While on warfarin.POCT-GLUCOSE METER 2018-02-02 21:56:00 Test Item Value Reference Range Interpretation Comments POC-GLUCOSE METER 206 mg/dL 70-110 H TESTED AT [place] [address] ([facility]) (test code = FOSTER [place] [facility] 1538) [address] [id number] 19:50:00 Test Item Value Reference Range Interpretation Comments PARTIAL THROMBOPLASTIN TIME 59.7 seconds 22.5-36.0 H (BEAKER) (test code = 760) POCT-GLUCOSE [id number] 17:00:00 Test Item Value Reference Range Interpretation Comments POC-GLUCOSE METER 183 mg/dL 70-110 H TESTED AT [facility] 6720 (BEAKER) (test code = [place] 1538) [address] [id number] 12:45:00 Test Item Value Reference Range Interpretation Comments PARTIAL THROMBOPLASTIN TIME 89.5 seconds 22.5-36.0 H (BEAKER) (test code = 760) CBC W/PLT COUNT & AUTO [id number] 12:04:00 Test Item Value Reference Range Interpretation [...] WBC 0-0 (test code = 413) POCT-GLUCOSE [id number] 11:54:00 Test Item Value Reference Range Interpretation Comments POC-GLUCOSE METER 124 mg/dL 70-110 H TESTED AT [facility] 6720 (BEAKER) (test code = [place] 1538) [address] POCT-GLUCOSE [id number] 07:48:00 Test Item Value Reference Range Interpretation Comments POC-GLUCOSE METER 178 mg/dL 70-110 H TESTED AT [facility] 6720 (BEAKER) (test code = FOSTER Paul [place] 1538) [address] BASIC METABOLIC [id number] 05:15:00 Test Item Value Reference Range Interpretation [...] S NOT APPLICABLE FOR DIALYSIS PATIEN TS. [id number] 04:51:00 Test Item Value Reference Range Interpretation Comments MAGNESIUM (BEAKER) (test code = 1.8 mg/dL 1.6-2.6 627) [id number] 04:36:00 Test Item Value Reference Range Interpretation Comments PARTIAL THROMBOPLASTIN TIME 91.9 seconds 22.5-36.0 H (BEAKER) (test code = 760) While on warfarin.PROTHROMBIN TIME/[id number] 04:34:00 Test Item Value Reference Range Interpretation [...] METER 126 mg/dL 70-110 H TESTED AT [place] [address] ([facility]) (test code = FOSTER Paul [facility] 1538) [address] [id number] 21:23:00 Test Item Value Reference Range Interpretation Comments PARTIAL THROMBOPLASTIN TIME 84.1 seconds 22.5-36.0 H ([facility]) (test code = 760) POCT-GLUCOSE [id number] 16:57:00 Test Item Value Reference Range Interpretation Comments POC-GLUCOSE METER 156 mg/dL 70-110 H TESTED AT [place] [address] ([facility]) (test code = FOSTER Paul [facility] 1538) [address] [id number] 14:11:00 Test Item Value Reference Range Interpretation Comments PARTIAL THROMBOPLASTIN TIME 96.5 seconds 22.5-36.0 H ([facility]) (test code = 760) POCT-GLUCOSE [id number] 08:24:00 Test Item Value Reference Range Interpretation Comments POC-GLUCOSE METER 169 mg/dL 70-110 H TESTED AT [place] [address] ([facility]) (test code = FOSTER [place] [facility] 1538) [address] POCT-GLUCOSE [id number] 06:49:00 Test Item Value Reference Range Interpretation Comments POC-GLUCOSE METER 172 mg/dL 70-110 H TESTED AT [place] [address] ([facility]) (test code = MARIA GIL Humberto [facility] 1538) [address] [id number] 04:59:00 Test Item Value Reference Range Interpretation Comments PARTIAL THROMBOPLASTIN TIME 64.7 seconds 22.5-36.0 H ([facility]) (test code = 760) While on warfarin.PROTHROMBIN TIME/[id number] 04:57:00 Test Item Value Reference Range Interpretation Comments PROTIME ([facility]) (test code = 17.5 seconds 11.7-14.7 H 759) INR ([facility]) (test code = 370) 1.4 <=5.9 RECOMMENDED COUMADIN/WARFARIN INR THERAPY RANGESSTANDARD DOSE: 2.0 - 3.0 Includes: PROPHYLAXIS forvenous thrombosis, systemic embolization; TREATMENT for venous thrombosis and/or pulmonary embolus.HIGH RISK: Target INR is 2.5-3.5 for patients with mechanical heart valves.While on warfarin.[id number] 21:55:00 Test Item Value Reference Range Interpretation Comments PARTIAL THROMBOPLASTIN TIME 68.8 seconds 22.5-36.0 H ([facility]) (test code = 760) [id number] 13:54:00 Test Item Value Reference Range Interpretation Comments PARTIAL THROMBOPLASTIN TIME 51.7 seconds 22.5-36.0 H ([facility]) (test code = 760) POCT-GLUCOSE [id number] 11:56:00 Test Item Value Reference Range Interpretation Comments POC-GLUCOSE METER 101 mg/dL 70-110 TESTED AT [place] [address] ([facility]) (test code = [facility] 1538) [address] POCT-GLUCOSE [id number] 07:58:00 Test Item Value Reference Range Interpretation Comments POC-GLUCOSE METER 111 mg/dL 70-110 H TESTED AT [place] [address] ([facility]) (test code = [facility] 1538) [address] BASIC METABOLIC [id number] 05:35:00 Test Item Value Reference Range Interpretation [...] 697) EGFR (BEAKER) (test 13 mL/min/1.73 ESTIMA JAYAL GFR IS code = 1092) sq m NOT ACCURATE CREATININE CLEARANCE IN PREDICTING GLOMERULAR FILTRATION RATE . ESTIMATED GFR I S NOT APPLICABLE FOR DIALYSIS PATIEN TS. [id number] 05:34:00 Test Item Value Reference Range Interpretation Comments PHOSPHORUS (BEAKER) (test code = 4.2 mg/dL 2.3-4.7 604) [id number] 05:34:00 Test Item Value Reference Range Interpretation Comments MAGNESIUM (BEAKER) (test code = 1.7 mg/dL 1.6-2.6 627) PROTHROMBIN [id number] 05:24:00 Test Item Value Reference Range Interpretation Comments PROTIME (BEAKER) (test code = 18.8 seconds 11.7-14.7 H 759) INR (BEAKER) (test code = 370) 1.6 <=5.9 RECOMMENDED COUMADIN/WARFARIN INR THERAPY RANGESSTANDARD DOSE: 2.0 - 3.0 Includes: PROPHYLAXIS forvenous thrombosis, systemic embolization; TREATMENT for venous thrombosis and/or pulmonary embolus.HIGH RISK: Target INR is 2.5-3.5 for patients with mechanical heart valves.[id number] 05:05:00 Test Item Value Reference Range Interpretation Comments PARTIAL THROMBOPLASTIN TIME 96.6 seconds 22.5-36.0 H (BEAKER) (test code = 760) CBC W/PLT COUNT & AUTO [id number] 04:54:00 Test Item Value Reference Range Interpretation [...] (BEAKER) (test code = 2801) OCCULT BLOOD, [id number] 22:44:00 Test Item Value Reference Range Interpretation Comments FECAL OCCULT BLOOD (BEAKER) (test Positive Negative A code = 618) [id number] 21:14:00 Test Item Value Reference Range Interpretation Comments PARTIAL THROMBOPLASTIN TIME 69.1 seconds 22.5-36.0 H (BEAKER) (test code = 760) POCT-GLUCOSE [id number] 20:49:00 Test Item Value Reference Range Interpretation Comments POC-GLUCOSE METER 160 mg/dL 70-110 H TESTED AT [facility] 6720 (BEAKER) (test code = [place] 1538) [address] POCT-GLUCOSE [id number] 17:59:00 Test Item Value Reference Range Interpretation Comments POC-GLUCOSE METER 128 mg/dL 70-110 H TESTED AT [facility] 67 (BEAKER) (test code = [facility] 1538) [address] POCT-GLUCOSE [id number] 13:31:00 Test Item Value Reference Range Interpretation Comments POC-GLUCOSE METER 70 mg/dL 70-110 TESTED AT [facility] 67 ([facility] (test code = [facility] [address] 1538) [id number] 13:16:00 Test Item Value Reference Range Interpretation Comments PARTIAL THROMBOPLASTIN TIME 78.3 seconds 22.5-36.0 H (BEAKER) (test code = 760) POCT-GLUCOSE [id number] 12:47:00 Test Item Value Reference Range Interpretation Comments POC-GLUCOSE METER 49 mg/dL 70-110 L TESTED AT [place] [address] ([facility] (test code = [facility] [facility] [address] 1538) POCT-GLUCOSE [id number] 09:05:00 Test Item Value Reference Range Interpretation Comments POC-GLUCOSE METER 306 mg/dL 70-110 H TESTED AT [place] [address] (BEAKER) (test code = [facility] 1538) [address] OCCULT BLOOD, [id number] 06:52:00 Test Item Value Reference Range Interpretation Comments FECAL OCCULT BLOOD (BEAKER) (test Positive Negative A code = 618) [id number] 05:42:00 Test Item Value Reference Range Interpretation [...] 20-55 (test code = 2590) BASIC METABOLIC [id number] 03:53:00 Test Item Value Reference Range Interpretation [...] S NOT APPLICABLE FOR DIALYSIS PATIEN TS. [id number] 03:51:00 Test Item Value Reference Range Interpretation Comments PHOSPHORUS (BEAKER) (test code = 3.2 mg/dL 2.3-4.7 604) [id number] 03:51:00 Test Item Value Reference Range Interpretation Comments PARTIAL THROMBOPLASTIN TIME 122.0 seconds 22.5-36.0 H (BEAKER) (test code = 760) While on warfarin.PROTHROMBIN [id number] 03:48:00 Test Item Value Reference Range Interpretation Comments PROTIME (BEAKER) (test code = 16.3 seconds 11.7-14.7 H 759) INR (BEAKER) (test code = 370) 1.3 <=5.9 RECOMMENDED COUMADIN/WARFARIN INR THERAPY RANGESSTANDARD DOSE: 2.0 - 3.0 Includes: PROPHYLAXIS forvenous thrombosis, systemic embolization; TREATMENT for venous thrombosis and/or pulmonary embolus.HIGH RISK: Target INR is 2.5-3.5 for patients with mechanical heart valves.While on warfarin.[id number] 03:44:00 Test Item Value Reference Range Interpretation Comments MAGNESIUM (BEAKER) (test code = 1.7 mg/dL 1.6-2.6 627) CBC W/PLT COUNT & AUTO [id number] 03:38:00 Test Item Value Reference Range Interpretation [...] PERCENT (BEAKER) (test code = 2801) POCT-GLUCOSE [id number] 23:35:00 Test Item Value Reference Range Interpretation Comments POC-GLUCOSE METER 149 mg/dL 70-110 H TESTED AT [facility] 6720 ([facility]) (test code = [place] 1538) [address] [id number] 20:08:00 Test Item Value Reference Range Interpretation Comments PARTIAL THROMBOPLASTIN TIME 55.6 seconds 22.5-36.0 H ([facility]) (test code = 760) [id number] 15:10:00 Test Item Value Reference Range Interpretation Comments PARTIAL THROMBOPLASTIN TIME 81.4 seconds 22.5-36.0 H ([facility]) (test code = 760) POCT-GLUCOSE [id number] 11:58:00 Test Item Value Reference Range Interpretation Comments POC-GLUCOSE METER 124 mg/dL 70-110 H TESTED AT [place] [address] ([facility]) (test code = [facility] 1538) [address] RAD, CHEST, 1 VIEW, NON [id number] 08:59:00Reason for exam:->s/p mvrShould this be performed at the bedside?->YesFINAL REPORT Chest one view compared to January 24 Discussion: Left IJ line, atrial appendage clip, cardiac valve replacement noted. Mild interstitial congestion. No gross effusion or pneumothorax. IMPRESSIONS: No significant change Signed: Rhea Colindres Verified Date/Time:01/29/2018 08:59:39 Reading Location: [facility] Radiology Reading Room POCT-GLUCOSE [id number] 07:41:00 Test Item Value Reference Range Interpretation Comments POC-GLUCOSE METER 113 mg/dL 70-110 H TESTED AT [facility] 6720 ([facility]) (test code = [facility] 1538) [address] [id number] 07:23:00 Test Item Value Reference Range Interpretation Comments PARTIAL THROMBOPLASTIN TIME 89.8 seconds 22.5-36.0 H ([facility]) (test code = 760) BASIC METABOLIC [id number] 06:05:00 Test Item Value Reference Range Interpretation [...] NOT APPLICABLE FOR DIALYSIS PATIEN TS. PROTHROMBIN [id number] 05:59:00 Test Item Value Reference Range Interpretation Comments PROTIME (BEAKER) (test code = 17.0 seconds 11.7-14.7 H 759) INR (BEAKER) (test code = 370) 1.4 <=5.9 RECOMMENDED COUMADIN/WARFARIN INR THERAPY RANGESSTANDARD DOSE: 2.0 - 3.0 Includes: PROPHYLAXIS forvenous thrombosis, systemic embolization; TREATMENT for venous thrombosis and/or pulmonary embolus.HIGH RISK: Target INR is 2.5-3.5 for patients with mechanical heart valves.While on warfarin.[id number] 05:56:00 Test Item Value Reference Range Interpretation Comments PHOSPHORUS (BEAKER) (test code = 5.3 mg/dL 2.3-4.7 H 604) [id number] 05:56:00 Test Item Value Reference Range Interpretation Comments MAGNESIUM (BEAKER) (test code = 1.9 mg/dL 1.6-2.6 627) CBC W/PLT COUNT & AUTO [id number] 05:38:00 Test Item Value Reference Range Interpretation [...] 0-1 PERCENT (BEAKER) (test code = 2801) [id number] 01:07:00 Test Item Value Reference Range Interpretation Comments PARTIAL THROMBOPLASTIN TIME 63.5 seconds 22.5-36.0 H (BEAKER) (test code = 760) [id number] 18:24:00 Test Item Value Reference Range Interpretation Comments PARTIAL THROMBOPLASTIN TIME 56.6 seconds 22.5-36.0 H (BEAKER) (test code = 760) POCT-GLUCOSE [id number] 18:14:00 Test Item Value Reference Range Interpretation Comments POC-GLUCOSE METER 101 mg/dL 70-110 TESTED AT [facility] 67 (BEAKER) (test code = [facility] 1538) [address] [id number] 13:57:00 Test Item Value Reference Range Interpretation Comments PARTIAL THROMBOPLASTIN TIME 122.3 seconds 22.5-36.0 H (BEAKER) (test code = 760) POCT-GLUCOSE [id number] 13:08:00 Test Item Value Reference Range Interpretation Comments POC-GLUCOSE METER 105 mg/dL 70-110 TESTED AT [place] [address] (BEAKER) (test code = [facility] 1538) [address] BASIC METABOLIC [id number] 04:31:00 Test Item Value Reference Range Interpretation [...] S NOT APPLICABLE FOR DIALYSIS PATIEN TS. [id number] 04:28:00 Test Item Value Reference Range Interpretation Comments PHOSPHORUS (BEAKER) (test code = 3.9 mg/dL 2.3-4.7 604) [id number] 04:28:00 Test Item Value Reference Range Interpretation Comments MAGNESIUM (BEAKER) (test code = 1.7 mg/dL 1.6-2.6 627) HEPATIC FUNCTION [id number] 04:28:00 Test Item Value Reference Range Interpretation [...] (test code = 33 U/L 6-55 347) [id number] 04:20:00 Test Item Value Reference Range Interpretation Comments PARTIAL THROMBOPLASTIN TIME 106.2 seconds 22.5-36.0 H (BEAKER) (test code = 760) While on warfarin.PROTHROMBIN TIME/[id number] 04:15:00 Test Item Value Reference Range Interpretation [...] valves.While on warfarin.CBC W/PLT COUNT & AUTO [id number] 04:05:00 Test Item Value Reference Range Interpretation [...] 0-1 H PERCENT (BEAKER) (test code = 1353) POCT-GLUCOSE [id number] 00:29:00 Test Item Value Reference Range Interpretation Comments POC-GLUCOSE METER 119 mg/dL 70-110 H TESTED AT [place] [address] ([facility]) (test code = [facility] 1538) [address] [id number] 00:24:00 Test Item Value Reference Range Interpretation Comments PARTIAL THROMBOPLASTIN TIME 72.4 seconds 22.5-36.0 H ([facility]) (test code = 760) POCT-GLUCOSE [id number] 18:33:00 Test Item Value Reference Range Interpretation Comments POC-GLUCOSE METER 158 mg/dL 70-110 H TESTED AT [place] [address] ([facility]) (test code = [place] 1538) [address] [id number] 18:22:00 Test Item Value Reference Range Interpretation Comments PARTIAL THROMBOPLASTIN TIME 78.6 seconds 22.5-36.0 H ([facility]) (test code = 760) POCT-GLUCOSE [id number] 12:20:00 Test Item Value Reference Range Interpretation Comments POC-GLUCOSE METER 110 mg/dL 70-110 TESTED AT [place] [address] ([facility]) (test code = [facility] 1538) [address] [id number] 12:04:00 Test Item Value Reference Range Interpretation Comments PARTIAL THROMBOPLASTIN TIME 98.0 seconds 22.5-36.0 H ([facility]) (test code = 760) [id number] 04:11:00 Test Item Value Reference Range Interpretation Comments PROTIME ([facility]) (test code = 15.2 seconds 11.7-14.7 H 759) INR ([facility]) (test code = 370) 1.2 <=5.9 PARTIAL THROMBOPLASTIN TIME 67.9 seconds 22.5-36.0 H ([facility]) (test code = 760) RECOMMENDED COUMADIN/WARFARIN INR THERAPY RANGESSTANDARD DOSE: 2.0 - 3.0 Includes: PROPHYLAXIS forvenous thrombosis, systemic embolization; TREATMENT for venous thrombosis and/or pulmonary embolus.HIGH RISK: Target INR is 2.5-3.5 for patients with mechanical heart valves.While on warfarin.While on warfarin. PROTHROMBIN [id number] 04:10:00 Test Item Value Reference Range Interpretation Comments PROTIME (BEAKER) (test code = 15.2 seconds 11.7-14.7 H 759) INR (BEAKER) (test code = 370) 1.2 <=5.9 RECOMMENDED COUMADIN/WARFARIN INR THERAPY RANGESSTANDARD DOSE: 2.0 - 3.0 Includes: PROPHYLAXIS forvenous thrombosis, systemic embolization; TREATMENT for venous thrombosis and/or pulmonary embolus.HIGH RISK: Target INR is 2.5-3.5 for patients with mechanical heart valves.BASIC METABOLIC [id number] 03:53:00 Test Item Value Reference Range Interpretation [...] PATIEN TS. CBC W/PLT COUNT & AUTO [id number] 03:50:00 Test Item Value Reference Range Interpretation [...] H PERCENT (BEAKER) (test code = 2806) [id number] 03:45:00 Test Item Value Reference Range Interpretation Comments PHOSPHORUS (BEAKER) (test code = 4.7 mg/dL 2.3-4.7 604) [id number] 03:45:00 Test Item Value Reference Range Interpretation Comments MAGNESIUM (BEAKER) (test code = 2.0 mg/dL 1.6-2.6 627) HEPATIC FUNCTION [id number] 03:45:00 Test Item Value Reference Range Interpretation [...] (test code = 36 U/L 6-55 347) [id number] 22:16:00 Test Item Value Reference Range Interpretation Comments PARTIAL THROMBOPLASTIN TIME 60.7 seconds 22.5-36.0 H (BEAKER) (test code = 760) POCT-GLUCOSE [id number] 18:32:00 Test Item Value Reference Range Interpretation Comments POC-GLUCOSE METER 125 mg/dL 70-110 H TESTED AT [facility] 6720 (BEAKER) (test code = [place] 1533) [address] CBC (HEMOGRAM ONLY)2018-01-26 17:21:00 Test Item Value [...] (BEAKER) (test code = 413) BASIC METABOLIC [id number] 07:16:00 Test Item Value Reference Range Interpretation [...] S NOT APPLICABLE FOR DIALYSIS PATIEN TS. [id number] 07:13:00 Test Item Value Reference Range Interpretation Comments PHOSPHORUS (BEAKER) (test code = 4.3 mg/dL 2.3-4.7 604) [id number] 07:13:00 Test Item Value Reference Range Interpretation Comments MAGNESIUM (BEAKER) (test code = 2.0 mg/dL 1.6-2.6 627) HEPATIC FUNCTION [id number] 07:13:00 Test Item Value Reference Range Interpretation [...] (test code = 37 U/L 6-55 347) [id number] 07:12:00 Test Item Value Reference Range Interpretation [...] PERCENT (BEAKER) (test code = 2801) BLOOD [id number] 00:00:00 Test Item Value Reference Range Interpretation Comments CULTURE (BEAKER) (test No growth in 5 days code = 1095) BLOOD [id number] 00:00:00 Test Item Value Reference Range Interpretation Comments CULTURE (BEAKER) (test No growth in 5 days code = 1095) POCT-GLUCOSE [id number] 23:37:00 Test Item Value Reference Range Interpretation Comments POC-GLUCOSE METER 87 mg/dL 70-110 TESTED AT [facility] 6720 (BEAKER) (test [place] = [place] [address] 1538) [id number] 23:06:00 Test Item Value Reference Range Interpretation Comments PARTIAL THROMBOPLASTIN TIME 81.8 seconds 22.5-36.0 H (BEAKER) (test code = 760) POCT-GLUCOSE [id number] 20:42:00 Test Item Value Reference Range Interpretation Comments POC-GLUCOSE METER 193 mg/dL 70-110 H TESTED AT [facility] 6720 (BEAKER) (test code = [place] 1538) [address] HEMOGLOBIN AND [id number] 17:40:00 Test Item Value Reference Range Interpretation Comments HEMOGLOBIN (BEAKER) (test code = 8.4 GM/DL 13.7-17.5 L 410) HEMATOCRIT (BEAKER) (test code = 25.4 % 40.1-51.0 L 411) [id number] 13:06:00 Test Item Value Reference Range Interpretation Comments PARTIAL THROMBOPLASTIN TIME 61.4 seconds 22.5-36.0 H (BEAKER) (test code = 760) POCT-GLUCOSE [id number] 12:56:00 Test Item Value Reference Range Interpretation Comments POC-GLUCOSE METER 116 mg/dL 70-110 H TESTED AT [facility] 6720 (BEAKER) (test code = [place] 1538) [address] [id number] 06:43:00 Test Item Value Reference Range Interpretation [...] 37 % 20-55 (test code = 2590) [id number] 05:32:00 Test Item Value Reference Range Interpretation Comments PARTIAL THROMBOPLASTIN TIME 63.7 seconds 22.5-36.0 H (BEAKER) (test code = 760) BASIC METABOLIC [id number] 05:03:00 Test Item Value Reference Range Interpretation [...] APPLICABLE FOR DIALYSIS PATIEN TS. HEPATIC FUNCTION [id number] 05:00:00 Test Item Value Reference Range Interpretation [...] (test code = 41 U/L 6-55 347) [id number] 04:40:00 Test Item Value Reference Range Interpretation [...] 0-0 (BEAKER) (test code = 413) POCT-GLUCOSE [id number] 00:30:00 Test Item Value Reference Range Interpretation Comments POC-GLUCOSE METER 112 mg/dL 70-110 H TESTED AT [facility] 6720 (BEAKER) (test code = [place] 1538) [address] CBC W/PLT COUNT & AUTO [id number] 19:16:00 Test Item Value Reference Range Interpretation [...] % 0-1 PERCENT (BEAKER) (test code = 2806) POCT-GLUCOSE [id number] 18:27:00 Test Item Value Reference Range Interpretation Comments POC-GLUCOSE METER 102 mg/dL 70-110 TESTED AT [facility] 6720 (BEAKER) (test code = [place] 1538) [address] POCT-GLUCOSE [id number] 13:01:00 Test Item Value Reference Range Interpretation Comments POC-GLUCOSE METER 119 mg/dL 70-110 H TESTED AT [facility] 6720 (BEAKER) (test code = [facility] 1538) [address] RAD, CHEST, 1 VIEW, NON [id number] 10:59:00Reason for exam:->ptxShould this be performed at [...] Mejia Verified Date/Time: 01/24/2018 10:59:29 Reading Location: [facility] Diagnostic Imaging Reading Room - [place] [address] BRONCHIAL CULTURE + GRAM STAIN 2018-01-24 08:53:00 Test Item Value Reference Range Interpretation Comments CULTURE (BEAKER) 2+ Normal respiratory (test code = 1095) pete present GRAM STAIN RESULT 4+ White blood cells (BEAKER) (test code = seen 1123) GRAM STAIN RESULT No organisms seen (BEAKER) (test code = 41889) POCT-GLUCOSE [id number] 06:28:00 Test Item Value Reference Range Interpretation Comments POC-GLUCOSE METER 119 mg/dL 70-110 H TESTED AT [facility] 6720 (BEAKER) (test code = [facility] 1538) [address] BASIC METABOLIC [id number] 04:41:00 Test Item Value Reference Range Interpretation [...] WBC 0-0 (BEAKER) (test code = 413) [id number] 04:21:00 Test Item Value Reference Range Interpretation Comments MAGNESIUM (BEAKER) (test code = 2.0 mg/dL 1.6-2.6 627) HEPATIC FUNCTION [id number] 04:21:00 Test Item Value Reference Range Interpretation [...] = 36 U/L 6-55 347) Specimen slightly [id number] 04:13:00 Test Item Value Reference Range Interpretation Comments PARTIAL THROMBOPLASTIN TIME 72.1 seconds 22.5-36.0 H (BEAKER) (test code = 760) BLOOD GAS, [id number] 04:13:00 Test Item Value Reference Range Interpretation [...] (test code = 1819) 100.0 % POCT-GLUCOSE [id number] 00:08:00 Test Item Value Reference Range Interpretation Comments POC-GLUCOSE METER 150 mg/dL 70-110 H TESTED AT [facility] 6720 (BEAKER) (test code = [place] 1538) [address] POCT-GLUCOSE [id number] 18:45:00 Test Item Value Reference Range Interpretation Comments POC-GLUCOSE METER 162 mg/dL 70-110 H TESTED AT [place] [address] (BEAKER) (test code = [facility] 1538) [address] POCT-GLUCOSE [id number] 13:14:00 Test Item Value Reference Range Interpretation Comments POC-GLUCOSE METER 176 mg/dL 70-110 H TESTED AT [place] [address] (BEAKER) (test code = [facility] 1538) [address] POCT-GLUCOSE [id number] 10:44:00 Test Item Value Reference Range Interpretation Comments POC-GLUCOSE METER 146 mg/dL 70-110 H TESTED AT [place] [address] (BEAKER) (test code = [facility] 1538) [address] BLOOD GAS, [id number] 10:32:00 Test Item Value Reference Range Interpretation [...] 40.0 % RAD, CHEST, 1 VIEW, NON [id number] 09:14:00Reason for exam:->ptxShould this be performed at [...] MDReport Verified Date/Time: 01/23/2018 09:14:48 Reading Location: [facility] Radiology Reading Room Electronically sign ed by: KYLE ROME M.D. on 01/23/2018 09:14 AMBLOOD [id number] 08:09:00 Test Item Value Reference Range Interpretation Comments CULTURE (BEAKER) A From Aerobi c Bottle (test code = Only Lactobacil park 1095) species GRAM STAIN From aerobic RESULT (BEAKER) bottle only: gram (test code = positive rods 1123) NOT DETECTEDPanel is negative for StocardFirRoboteX BCID-detectable organisms. Please refer to traditional culture and sensitivity results as they become available.Other organisms and resistance markers not contained in this PCR panel cannot be excluded and follow-up of traditional culture results is required. This sample was tested at the [facility] Clinical Microbiology Laboratory using the [employer] Blood Culture ID Panel. This test is FDA cleared for in vitro diagnostic use and has been verified and approved by the [facility] Clinical Microbiology laboratory for clinical use. Reference Range: Not DetectedBLOOD GAS, [id number] 04:45:00 Test Item Value Reference Range Interpretation [...] code = 1819) 40.0 % BASIC METABOLIC [id number] 04:39:00 Test Item Value Reference Range Interpretation [...] APPLICABLE FOR DIALYSIS PATIEN TS. Specimen slightly [id number] 04:35:00 Test Item Value Reference Range Interpretation Comments MAGNESIUM (BEAKER) (test code = 1.8 mg/dL 1.6-2.6 627) HEPATIC FUNCTION [id number] 04:35:00 Test Item Value Reference Range Interpretation [...] = 40 U/L 6-55 347) Specimen slightly [id number] 04:18:00 Test Item Value Reference Range Interpretation [...] WBC 0-0 (test code = 413) POCT-GLUCOSE [id number] 00:52:00 Test Item Value Reference Range Interpretation Comments POC-GLUCOSE METER 145 mg/dL 70-110 H TESTED AT [place] [address] ([facility]) (test code = [facility] 1538) [address] BLOOD [id number] 00:00:00 Test Item Value Reference Range Interpretation Comments CULTURE ([facility]) (test No growth in 5 days code = 1095) POCT-GLUCOSE [id number] 18:17:00 Test Item Value Reference Range Interpretation Comments POC-GLUCOSE METER 97 mg/dL 70-110 TESTED AT [place] [address] ([facility]) (test code = [facility] [address] 1538) POCT-GLUCOSE [id number] 13:26:00 Test Item Value Reference Range Interpretation Comments POC-GLUCOSE METER 138 mg/dL 70-110 H TESTED AT [place] [id number] ([facility]) (test code = [facility] 1538) [address] BLOOD GAS, [id number] 10:32:00 Test Item Value Reference Range Interpretation [...] (test code = 1819) 40.0 % POCT-GLUCOSE [id number] 06:21:00 Test Item Value Reference Range Interpretation Comments POC-GLUCOSE METER 138 mg/dL 70-110 H TESTED AT [facility] 6720 (BEAKER) (test code = [place] 1538) [address] BASIC METABOLIC [id number] 04:25:00 Test Item Value Reference Range Interpretation [...] APPLICABLE FOR DIALYSIS PATIEN TS. Specimen slightly [id number] 04:24:00 Test Item Value Reference Range Interpretation Comments MAGNESIUM (BEAKER) (test code = 2.1 mg/dL 1.6-2.6 627) HEPATIC FUNCTION [id number] 04:24:00 Test Item Value Reference Range Interpretation [...] /100 WBC 0-0 (test code = 413) [id number] 04:07:00 Test Item Value Reference Range Interpretation Comments PARTIAL THROMBOPLASTIN TIME 80.2 seconds 22.5-36.0 H (BEAKER) (test code = 760) BLOOD GAS, [id number] 04:06:00 Test Item Value Reference Range Interpretation [...] 40.0 % RAD, CHEST, 1 VIEW, NON [id number] 03:32:00Reason for exam:->ptxShould this be performed at [...] MDReport Verified Date/Time: 01/22/2018 03:32:38 Reading Location: [facility] C013Y CT Body Reading Room POCT-GLUCOSE [id number] 00:43:00 Test Item Value Reference Range Interpretation Comments POC-GLUCOSE METER 102 mg/dL 70-110 TESTED AT [facility] 6720 (BEAKER) (test code = [place] 1538) [address] [id number] 17:31:00 Test Item Value Reference Range Interpretation Comments PARTIAL THROMBOPLASTIN TIME 65.0 seconds 22.5-36.0 H ([facility]) (test code = 760) POCT-GLUCOSE [id number] 17:24:00 Test Item Value Reference Range Interpretation Comments POC-GLUCOSE METER 171 mg/dL 70-110 H TESTED AT [facility] 67[address] ([facility]) (test code = [place] [facility] 1538) [address]149 POCT-GLUCOSE [id number] 13:01:00 Test Item Value Reference Range Interpretation Comments POC-GLUCOSE METER 144 mg/dL 70-110 H TESTED AT [place] [address] ([facility]) (test code = [facility] 1538) [address] [id number] 11:12:00 Test Item Value Reference Range Interpretation Comments PARTIAL THROMBOPLASTIN TIME 67.9 seconds 22.5-36.0 H ([facility]) (test code = 760) RAD, CHEST, 1 VIEW, NON [id number] 08:01:00Reason for exam:->ptxShould this be performed at [...] left pleural effusion is present. Signed: [facility] Verified Date/Time: 01/21/2018 08:01:07 Reading Location: [facility] Radiology Reading Room POCT-GLUCOSE [id number] 06:50:00 Test Item Value Reference Range Interpretation Comments POC-GLUCOSE METER 149 mg/dL 70-110 H TESTED AT [facility] 6720 ([facility]) (test code = [facility] 1538) [address] CBC (HEMOGRAM ONLY)2018-01-21 04:20:00 Test Item Value [...] /100 WBC 0-0 (test code = 413) [id number] 04:03:00 Test Item Value Reference Range Interpretation Comments PARTIAL THROMBOPLASTIN TIME 51.2 seconds 22.5-36.0 H (BEAKER) (test code = 760) BASIC METABOLIC [id number] 04:01:00 Test Item Value Reference Range Interpretation [...] APPLICABLE FOR DIALYSIS PATIEN TS. Specimen moderately [id number] 03:59:00 Test Item Value Reference Range Interpretation Comments MAGNESIUM (BEAKER) (test code = 2.0 mg/dL 1.6-2.6 627) HEPATIC FUNCTION [id number] 03:59:00 Test Item Value Reference Range Interpretation [...] U/L 6-55 347) Specimen moderately ictericVANCOMYCIN LEVEL, [id number] 03:57:00 Test Item Value Reference Range Interpretation Comments VANCOMYCIN RANDOM (BEAKER) (test 18.3 ug/mL code = 523) Reference Range: No NormalsOXYGEN SATURATION, [id number] 03:32:00 Test Item Value Reference Range Interpretation Comments O2 SATURATION (MEASURED) (BEAKER) 86.3 % (test code = 1455) BLOOD GAS, [id number] 03:30:00 Test Item Value Reference Range Interpretation [...] (test code = 1819) 40.0 % POCT-GLUCOSE [id number] 23:43:00 Test Item Value Reference Range Interpretation Comments POC-GLUCOSE METER 143 mg/dL 70-110 H TESTED AT [place] [address] ([facility]) (test code = [facility] 1538) [address] BLOOD [id number] 18:00:00 Test Item Value Reference Range Interpretation Comments CULTURE (BEAKER) (test No growth in 5 days code = 1095) BLOOD [id number] 18:00:00 Test Item Value Reference Range Interpretation Comments CULTURE (BEAKER) (test No growth in 5 days code = 1095) POCT-GLUCOSE [id number] 16:32:00 Test Item Value Reference Range Interpretation Comments POC-GLUCOSE METER 185 mg/dL 70-110 H TESTED AT [place] [address] ([facility]) (test code = [facility] 1538) [address] MISCELLANEOUS LAB [id number] 15:04:00 Test Item Value Reference Range Interpretation Comments SCAN RESULT (test code = 6730061) Result comments: NOT DETECTED Panel is negative for Bio[employer] BCID-detectable organisms. Please refer to traditional culture and sensitivity results as they become available. Other organisms and resistance markers not contained in this PCR panel cannot be excluded and follow-up of traditional culture results is required. This sample was tested at the [facility] Clinical Microbiology Laboratory using the [employer] FilmArray Blood Culture ID Panel. This test is FDA cleared for in vitro diagnostic use and hasbeen verified and approved by the [facility] Clinical Microbiology laboratory for clinical use. ReferenceRange: Not Detected POCT-GLUCOSE [id number] 12:25:00 Test Item Value Reference Range Interpretation Comments POC-GLUCOSE METER 116 mg/dL 70-110 H TESTED AT [place] [address] ([facility]) (test code = [facility] [place] 1538) [address] RAD, CHEST, 1 VIEW, NON [id number] 06:38:00Reason for exam:->pl effusionShould this be performed [...] MDReport Verified Date/Time: 01/20/2018 06:38:33 Reading Location: [address] Body Reading Room POCT-GLUCOSE [id number] 05:54:00 Test Item Value Reference Range Interpretation Comments POC-GLUCOSE METER 231 mg/dL 70-110 H TESTED AT [facility] 6720 ([facility]) (test code = [facility] 1538) [address] VANCOMYCIN LEVEL, [id number] 04:23:00 Test Item Value Reference Range Interpretation Comments VANCOMYCIN RANDOM (BEAKER) (test 25.8 ug/mL code = 523) Reference Range: No [id number] 04:17:00 Test Item Value Reference Range Interpretation Comments MAGNESIUM (BEAKER) (test code = 2.0 mg/dL 1.6-2.6 627) HEPATIC FUNCTION [id number] 04:17:00 Test Item Value Reference Range Interpretation [...] 6-55 H 347) Specimen moderately ictericBASIC METABOLIC [id number] 04:17:00 Test Item Value Reference Range Interpretation [...] APPLICABLE FOR DIALYSIS PATIEN TS. Specimen moderately [id number] 04:05:00 Test Item Value Reference Range Interpretation Comments PARTIAL THROMBOPLASTIN TIME 69.7 seconds 22.5-36.0 H (BEAKER) (test code = 760) CBC W/PLT COUNT & AUTO [id number] 03:49:00 Test Item Value Reference Range Interpretation [...] H PERCENT (BEAKER) (test code = 2800) OXYGEN SATURATION, [id number] 03:48:00 Test Item Value Reference Range Interpretation Comments O2 SATURATION (MEASURED) (BEAKER) 84.1 % (test code = 1455) POCT-GLUCOSE [id number] 23:14:00 Test Item Value Reference Range Interpretation Comments POC-GLUCOSE METER 248 mg/dL 70-110 H TESTED AT [facility] 6720 ([facility]) (test code = [facility] [place] 1538) [address] POCT-GLUCOSE [id number] 18:56:00 Test Item Value Reference Range Interpretation Comments POC-GLUCOSE METER 213 mg/dL 70-110 H TESTED AT [facility] 6720 (BEAKER) (test code = [place] 1538) [address] POCT-GLUCOSE [id number] 14:06:00 Test Item Value Reference Range Interpretation Comments POC-GLUCOSE METER 210 mg/dL 70-110 H TESTED AT [facility] 6720 (BEAKER) (test code = [place] 1538) [address] SPUTUM CULTURE + GRAM [id number] 13:45:00 Test Item Value Reference Range Interpretation Comments CULTURE (BEAKER) 4+ Normal respiratory (test code = 1095) pete present GRAM STAIN RESULT 4+ WBCs (BEAKER) (test code = 1123) GRAM STAIN RESULT 0-5 epithelial cells (BEAKER) (test code = 14024) GRAM STAIN RESULT 3+ gram negative rods (BEAKER) (test code = 09817) GRAM STAIN RESULT 2+ gram positive cocci (BEAKER) (test code = in pairs and clusters 514152) [id number] 12:37:00 Test Item Value Reference Range Interpretation Comments PARTIAL THROMBOPLASTIN TIME 74.3 seconds 22.5-36.0 H (BEAKER) (test code = 760) CBC W/PLT COUNT & AUTO [id number] 10:52:00 Test Item Value Reference Range Interpretation [...] H (test code = 413) VANCOMYCIN LEVEL, [id number] 05:41:00 Test Item Value Reference Range Interpretation Comments VANCOMYCIN RANDOM (BEAKER) (test 27.9 ug/mL code = 523) Reference Range: No NormalsBASIC METABOLIC [id number] 05:39:00 Test Item Value Reference Range Interpretation [...] APPLICABLE FOR DIALYSIS PATIEN TS. Specimen moderately [id number] 05:36:00 Test Item Value Reference Range Interpretation Comments MAGNESIUM (BEAKER) (test code = 2.0 mg/dL 1.6-2.6 627) [id number] 05:36:00 Test Item Value Reference Range Interpretation Comments PHOSPHORUS (BEAKER) (test code = 3.9 mg/dL 2.3-4.7 604) HEPATIC FUNCTION [id number] 05:36:00 Test Item Value Reference Range Interpretation [...] 6-55 H 347) Specimen moderately ictericOXYGEN SATURATION, [id number] 05:33:00 Test Item Value Reference Range Interpretation [...] WBC 0-0 H (test code = 413) [id number] 05:24:00 Test Item Value Reference Range Interpretation Comments PARTIAL THROMBOPLASTIN TIME 68.1 seconds 22.5-36.0 H (BEAKER) (test code = 760) RAD, CHEST, 1 VIEW, NON [id number] 04:41:00Reason for exam:->pl effusionShould this be performed at the bedside?->YesFINAL REPORT CLINICAL INDICATION: Support lines. Comparison: 01/18/2018 The ca rdiomediastinal contours are stable. Central pulmonary vascular congestion and bilateral parenchymalopacities are unchanged. There is no pneumothorax. Support lines are stable. Signed: Kellen Parraeport Verified Date/Time: 01/19/2018 04:41:27 Reading Location: [address] Reading Room APTT 2018-01-19 00:38:00 Test Item Value Reference Range Interpretation Comments PARTIAL THROMBOPLASTIN TIME 45.5 seconds 22.5-36.0 H (BEAKER) (test code = 760) POCT-GLUCOSE [id number] 00:21:00 Test Item Value Reference Range Interpretation Comments POC-GLUCOSE METER 189 mg/dL 70-110 H TESTED AT [place] [address] ([facility]) (test code = [facility] [facility] [place] 1538) [address] POCT-GLUCOSE [id number] 23:34:00 Test Item Value Reference Range Interpretation Comments POC-GLUCOSE METER 162 mg/dL 70-110 H TESTED AT [facility] 6720 ([facility]) (test code = [place] 1538) [address] POCT-GLUCOSE [id number] 18:09:00 Test Item Value Reference Range Interpretation Comments POC-GLUCOSE METER 172 mg/dL 70-110 H TESTED AT [facility] 6720 ([facility]) (test code = [facility] [place] 1538) [address] RAD, ABDOMEN/KUB, 1 VIEW [id number] 17:36:00Reason for exam:->ileusShould this be performed at the bedside?->YesFINAL REPORT Comparison: 01/17/2018 TECHNIQUE: Frontal image of the abdomen FINDINGS: There is a nonspecific bowel gas pattern. Tip of nasogastric projects in the distal stomach. No gross free intraperitoneal air. No acute skeletal abnormality. Signed: Kyle Rome MDReport Verified Date/Time: 01/18/2018 17:36:02 Reading Location: [address] Transitional Reading Room [id number] 17:10:00 Test Item Value Reference Range Interpretation Comments PARTIAL THROMBOPLASTIN TIME 27.8 seconds 22.5-36.0 (BEAKER) (test code = 760) Prior to initiating heparinPOCT-GLUCOSE [id number] 15:22:00 Test Item Value Reference Range Interpretation Comments POC-GLUCOSE METER 126 mg/dL 70-110 H TESTED AT [facility] 6720 (BEAKER) (test code = [facility] 1538) [address] [id number] 13:02:00 Test Item Value Reference Range Interpretation Comments PHOSPHORUS (BEAKER) (test code = 3.8 mg/dL 2.3-4.7 604) BASIC METABOLIC [id number] 13:02:00 Test Item Value Reference Range Interpretation [...] FOR DIALYSIS PATIEN TS. Specimen moderately ictericPOCT-GLUCOSE [id number] 12:11:00 Test Item Value Reference Range Interpretation Comments POC-GLUCOSE METER 113 mg/dL 70-110 H TESTED AT [facility] 6720 (BEAKER) (test code = [place] 1538) [address] CBC W/PLT COUNT & AUTO [id number] 12:03:00 Test Item Value Reference Range Interpretation [...] = 413) RAD, CHEST, 1 VIEW, NON [id number] 09:44:00Reason for exam:->pl effusionShould this be performed [...] MDReport Verified Date/Time: 01/18/2018 09:44:26 Reading Location: [facility] C013T Transitional Reading Room SPUTUM CULTURE + GRAM [id number] 08:09:00 Test Item Value Reference Range Interpretation Comments CULTURE (BEAKER) 3+ Normal respiratory (test code = 1095) epte present GRAM STAIN RESULT 4+ WBCs (BEAKER) (test code = 1123) GRAM STAIN RESULT 0-5 epithelial cells (BEAKER) (test code = 75703) GRAM STAIN RESULT No organisms seen (BEAKER) (test code = 77692) POCT-GLUCOSE [id number] 07:52:00 Test Item Value Reference Range Interpretation Comments POC-GLUCOSE METER 146 mg/dL 70-110 H TESTED AT [place] [address] ([facility]) (test code = [facility] 1538) [address] POCT-GLUCOSE [id number] 06:30:00 Test Item Value Reference Range Interpretation Comments POC-GLUCOSE METER 135 mg/dL 70-110 H TESTED AT [place] [address] ([facility] (test code = [facility] 1538) [address] POCT-GLUCOSE [id number] 06:30:00 Test Item Value Reference Range Interpretation Comments POC-GLUCOSE METER 130 mg/dL 70-110 H TESTED AT [place] [address] ([facility]) (test code = [facility] 1538) [address] [id number] 03:56:00 Test Item Value Reference Range Interpretation Comments PHOSPHORUS (BEAKER) (test code = 3.1 mg/dL 2.3-4.7 604) [id number] 03:56:00 Test Item Value Reference Range Interpretation Comments MAGNESIUM (BEAKER) (test code = 2.0 mg/dL 1.6-2.6 627) HEPATIC FUNCTION [id number] 03:56:00 Test Item Value Reference Range Interpretation [...] 6-55 H 347) Specimen moderately ictericVANCOMYCIN LEVEL, [id number] 03:53:00 Test Item Value Reference Range Interpretation Comments VANCOMYCIN RANDOM (BEAKER) (test 18.0 ug/mL code = 523) Reference Range: No [id number] 03:48:00 Test Item Value Reference Range Interpretation Comments CALCIUM (BEAKER) (test code = 697) 8.1 mg/dL 8.4-10.2 L CALCIUM, [id number] 03:34:00 Test Item Value Reference Range Interpretation Comments CALCIUM IONIZED (BEAKER) (test 1.06 mmol/L 1.12-1.27 L code = 698) PH, BLOOD (BEAKER) (test code = 7.38 1810) OXYGEN SATURATION, [id number] 03:33:00 Test Item Value Reference Range Interpretation Comments O2 SATURATION (MEASURED) (BEAKER) 85.8 % (test code = 1455) POCT-GLUCOSE [id number] 03:26:00 Test Item Value Reference Range Interpretation Comments POC-GLUCOSE METER 144 mg/dL 70-110 H TESTED AT [facility] 6720 [facility] (test code = [place] 1538) [address] POCT-GLUCOSE [id number] 03:26:00 Test Item Value Reference Range Interpretation Comments POC-GLUCOSE METER 163 mg/dL 70-110 H TESTED AT [facility] 6720 ([facility] (test code = [place] 1538) [address] POCT-GLUCOSE [id number] 01:04:00 Test Item Value Reference Range Interpretation Comments POC-GLUCOSE METER 159 mg/dL 70-110 H TESTED AT [facility] 6720 (BEAKER) (test code = [place] 1538) [address] POCT-GLUCOSE [id number] 00:12:00 Test Item Value Reference Range Interpretation Comments POC-GLUCOSE METER 132 mg/dL 70-110 H TESTED AT [facility] 6720 (BEAKER) (test code = [place] 1538) [address] LACTIC ACID, ARTERIAL, WHOLE [id number] 23:54:00 Test Item Value Reference Range Interpretation Comments LACTATE BLOOD ARTERIAL (2) 0.7 mmol/L 0.5-2.2 (BEAKER) (test code = 2874) Effective 01/04/2016: Units/Reference Range ChangeNew: 0.5-2.2 mmol/L Previous: 5-20 mg/dLSpecimen moderately ictericPOTASSIUM-STAT [id number] 23:30:00 Test Item Value Reference Range Interpretation Comments POTASSIUM (BEAKER) (test code = 4.0 meq/L 3.6-5.5 379) BLOOD GAS, [id number] 23:30:00 Test Item Value Reference Range Interpretation [...] code = 1819) 50.0 % SODIUM NA-STAT [id number] 23:30:00 Test Item Value Reference Range Interpretation Comments SODIUM (BEAKER) (test code = 381) 134 meq/L 135-148 L GLUCOSE-STAT [id number] 23:30:00 Test Item Value Reference Range Interpretation Comments GLUCOSE RANDOM (BEAKER) (test code 138 mg/dL 70-110 H = 652) HGB/HCT (H&H) - STAT [id number] 23:30:00 Test Item Value Reference Range Interpretation Comments HEMOGLOBIN (AKER) (test code = 9.0 g/dL 13.0-16.8 L 410) HEMATOCRIT ([facility]) (test code = 26.0 % 40.0-50.0 L 411) CALCIUM, [id number] 23:30:00 Test Item Value Reference Range Interpretation Comments CALCIUM IONIZED ([facility]) (test 1.04 mmol/L 1.12-1.27 L code = 698) PH, BLOOD ([facility]) (test code = 7.48 1810) OXYGEN SATURATION, [id number] 23:28:00 Test Item Value Reference Range Interpretation Comments O2 SATURATION (MEASURED) ([facility]) 82.0 % (test code = 1455) POCT-GLUCOSE [id number] 21:35:00 Test Item Value Reference Range Interpretation Comments POC-GLUCOSE METER 99 mg/dL 70-110 TESTED AT [place] [address] ([facility]) (test code = [facility] [address] 1538) POCT-GLUCOSE [id number] 21:35:00 Test Item Value Reference Range Interpretation Comments POC-GLUCOSE METER 111 mg/dL 70-110 H TESTED AT [place] [address] ([facility]) (test code = [facility] 1538) [address] RAD, CHEST, 1 VIEW, NON [id number] 17:08:00Reason for exam:->LIJ placment CVCShould this be [...] intact and well aligned. No fracture. Signed: Rosines, Alonso A. MDReport Verified Date/Time: 01/17/2018 17:08:24 Reading Location: [facility] Radiology Reading Room GLUCOSE-STAT [id number] 16:33:00 Test Item Value Reference Range Interpretation Comments GLUCOSE RANDOM (BEAKER) (test code 147 mg/dL 70-110 H = 652) POTASSIUM-STAT [id number] 16:32:00 Test Item Value Reference Range Interpretation Comments POTASSIUM (BEAKER) (test code = 4.7 meq/L 3.6-5.5 379) [id number] 15:03:00 Test Item Value Reference Range Interpretation Comments PROCALCITONIN (BEAKER) (test code 5.33 ng/mL <0.05 H = 3036) SEPSIS RISK (ng/mL)Low: 0.05-0.50Intermediate: 0.51-2.00High: >=2.01CT BRAIN WITHOUT IV CONTRAST - [id number] 13:50:00Reason for exam:->altered mental statusFINAL REPORT CT [...] MDReport Verified Date/Time: 01/17/2018 13:50:42 Reading Location: [facility] Radiology Reading Room CALCIUM, [id number] 12:36:00 Test Item Value Reference Range Interpretation Comments CALCIUM IONIZED (BEAKER) (test 1.09 mmol/L 1.12-1.27 L code = 698) PH, BLOOD (BEAKER) (test code = 7.36 1810) GLUCOSE-STAT [id number] 12:36:00 Test Item Value Reference Range Interpretation Comments GLUCOSE RANDOM (BEAKER) (test code 147 mg/dL 70-110 H = 652) POTASSIUM-STAT [id number] 12:36:00 Test Item Value Reference Range Interpretation Comments POTASSIUM (BEAKER) (test code = 4.7 meq/L 3.6-5.5 379) RAD, ABDOMEN/KUB, 1 VIEW [id number] 08:42:00Reason for exam:->ileusShould this be performed at [...] on the supine view. Signed: Lorna Slade MDRjerryort Verified Date/Time: 01/17/2018 08:42:09 Reading Location: [facility] Radiology Reading Room CBC W/PLT COUNT & AUTO [id number] 08:18:00 Test Item Value Reference Range Interpretation Comments WHITE BLOOD CELL COUNT (BEAKER) 22.5 K/ L 3.5-10.5 H (test code = 775) RED BLOOD CELL COUNT (BEAKER) 2.87 M/ L 4.63-6.08 L (test code = 761) HEMOGLOBIN (BEAKER) (test code = 9.0 GM/DL 13.7-17.5 L 410) HEMATOCRIT ([facility]) (test code = 27.4 % 40.1-51.0 L 411) MEAN CORPUSCULAR VOLUME (AKER) 95.5 fL 79.0-92.2 H (test code = 753) MEAN CORPUSCULAR HEMOGLOBIN 31.4 pg 25.7-32.2 ([facility]) (test code = 751) MEAN CORPUSCULAR HEMOGLOBIN CONC 32.8 GM/DL 32.3-36.5 ([facility]) (test code = 752) RED CELL DISTRIBUTION WIDTH 18.8 % 11.6-14.4 H ([facility]) (test code = 412) PLATELET COUNT ([facility]) (test code 63 K/CU MM 150-450 L = 756) MEAN PLATELET VOLUME (AKER) 11.1 fL 9.4-12.4 (test code = 754) NUCLEATED RED BLOOD CELLS ([facility]) 6 /100 WBC 0-0 H (test code = 413) HEPARIN ASSAY - [id number] 08:07:00 Test Item Value Reference Range Interpretation Comments UNFRACTIONATED HEPARIN-ANTI 10A < u/ml 0.30-0.70 L ([facility]) (test code = 1606) Recommendations for Monitoring Unfractionated Heparin Therapeutic Range: 0.3- 0.7 u/mL with continuous IV infusionPOCT-GLUCOSE [id number] 06:09:00 Test Item Value Reference Range Interpretation Comments POC-GLUCOSE METER 143 mg/dL 70-110 H TESTED AT [facility] 6720 ([facility]) (test code = [place] 1538) [address] RAD, CHEST, 1 VIEW, NON [id number] 04:43:00Reason for exam:->acute respiratory insufficiencyShould this be performed at the bedside?->YesFINAL REPORT RAD, CHEST, 1 VIEW, NON DEPT INDICATION: acute respiratory insufficiency COMPARISON: Prior day's exam FINDINGS: Portable frontal view of the chest. IMPRESSION: Support Lines: Stable. Lungs and pleura: Scattered subsegmental atelectasis. No visible pneumothorax.Heart and mediastinum: Stable contours. Stable surgical changes.Additional findings: None. Signed: JR Platt Robert MDRort Verified Date/Time: 01/17/2018 04:43:34 Reading Location: [facility] B1 I434LSL Body Reading Room OXYGEN SATURATION, [id number] 04:13:00 Test Item Value Reference Range Interpretation Comments O2 SATURATION (MEASURED) (BEAKER) 85.7 % (test code = 1455) [id number] 04:06:00 Test Item Value Reference Range Interpretation Comments PHOSPHORUS (BEAKER) (test code = 3.1 mg/dL 2.3-4.7 604) [id number] 04:06:00 Test Item Value Reference Range Interpretation Comments MAGNESIUM (BEAKER) (test code = 2.1 mg/dL 1.6-2.6 627) COMPREHENSIVE METABOLIC [id number] 04:06:00 Test Item Value Reference Range Interpretation [...] DIALYSIS PATIEN TS. Specimen moderately ictericHEPATIC FUNCTION [id number] 04:06:00 Test Item Value Reference Range Interpretation [...] 347) Specimen moderately ictericLACTIC ACID, ARTERIAL, WHOLE [id number] 03:59:00 Test Item Value Reference Range Interpretation Comments LACTATE BLOOD 0.5 mmol/L 0.5-2.2 Specimen sligh tly ARTERIAL (2) (BEAKER) hemoly zed (test code = 2874) Effective 01/04/2016: Units/Reference Range ChangeNew: 0.5-2.2 mmol/L Previous: 5-20 mg/dLSpecimen moderately ictericBLOOD GAS, [id number] 03:58:00 Test Item Value Reference Range Interpretation [...] -2.0-3.0 (test code = 387) PATIENT TEMPERATURE ([facility]) (test 35.6 C code = 1818) FIO2 ([facility]) (test code = 1819) 40.0 % CALCIUM, [id number] 03:58:00 Test Item Value Reference Range Interpretation Comments CALCIUM IONIZED ([facility]) (test 1.14 mmol/L 1.12-1.27 code = 698) PH, BLOOD ([facility]) (test code = 7.41 1810) POCT-GLUCOSE [id number] 02:41:00 Test Item Value Reference Range Interpretation Comments POC-GLUCOSE METER 144 mg/dL 70-110 H TESTED AT [place] [address] ([facility]) (test code = [facility] 1538) [address] POCT-GLUCOSE [id number] 00:30:00 Test Item Value Reference Range Interpretation Comments POC-GLUCOSE METER 171 mg/dL 70-110 H TESTED AT [place] [address] ([facility]) (test code = [facility] 1538) [address] POTASSIUM-STAT [id number] 00:08:00 Test Item Value Reference Range Interpretation Comments POTASSIUM ([facility]) (test code = 4.5 meq/L 3.6-5.5 379) POCT-GLUCOSE [id number] 23:30:00 Test Item Value Reference Range Interpretation Comments POC-GLUCOSE METER 159 mg/dL 70-110 H TESTED AT [place] [address] ([facility]) (test code = [facility] 1538) [id number] POCT-GLUCOSE [id number] 21:08:00 Test Item Value Reference Range Interpretation Comments POC-GLUCOSE METER 194 mg/dL 70-110 H TESTED AT [place] [address] ([facility]) (test code = [facility] 1538) [id number] POCT-GLUCOSE [id number] 21:08:00 Test Item Value Reference Range Interpretation Comments POC-GLUCOSE METER 230 mg/dL 70-110 H TESTED AT [place] [address] ([facility]) (test code = [facility] 1538) [id number] CALCIUM, [id number] 19:23:00 Test Item Value Reference Range Interpretation Comments CALCIUM IONIZED (BEAKER) (test 1.14 mmol/L 1.12-1.27 code = 698) PH, BLOOD (BEAKER) (test code = 7.36 1810) POTASSIUM-STAT [id number] 19:23:00 Test Item Value Reference Range Interpretation Comments POTASSIUM (BEAKER) (test code = 5.1 meq/L 3.6-5.5 379) [id number] 17:27:00 Test Item Value Reference Range Interpretation Comments PHOSPHORUS (BEAKER) (test code = 2.2 mg/dL 2.3-4.7 L 604) [id number] 17:27:00 Test Item Value Reference Range Interpretation Comments MAGNESIUM (BEAKER) (test code = 2.1 mg/dL 1.6-2.6 627) PH, [id number] 17:03:00 Test Item Value Reference Range Interpretation Comments PH ARTERIAL (BEAKER) (test code = 383) 7.39 7.35-7.45 POCT-GLUCOSE [id number] 16:43:00 Test Item Value Reference Range Interpretation Comments POC-GLUCOSE METER 95 mg/dL 70-110 TESTED AT [place] [address] ([facility]) (test code = [facility] [address] 1538) POCT-GLUCOSE [id number] 14:41:00 Test Item Value Reference Range Interpretation Comments POC-GLUCOSE METER 134 mg/dL 70-110 H TESTED AT [place] [address] ([facility]) (test code = [facility] 1538) [address] RAD, ABDOMEN/KUB, 1 VIEW [id number] 13:16:00Reason for exam:- >constipationShould this be performed [...] MDReport Verified Date/Time: 01/16/2018 13:16:27 Reading Location: [facility] Reading Room Electronically signed by: KAY WALTER on01/16/2018 01:16 PMCALCIUM, [id number] 12:38:00 Test Item Value Reference Range Interpretation Comments CALCIUM IONIZED (BEAKER) (test 1.14 mmol/L 1.12-1.27 code = 698) PH, BLOOD (BEAKER) (test code = 7.40 1810) POCT-GLUCOSE [id number] 12:29:00 Test Item Value Reference Range Interpretation Comments POC-GLUCOSE METER 127 mg/dL 70-110 H TESTED AT [facility] ([facility]) (test code = [facility] [place] [facility] 1538) [address] POCT-GLUCOSE [id number] 10:34:00 Test Item Value Reference Range Interpretation Comments POC-GLUCOSE METER 130 mg/dL 70-110 H TESTED AT [facility] 67 ([facility]) (test code = [facility] [place] 1538) [address] POCT-GLUCOSE [id number] 09:10:00 Test Item Value Reference Range Interpretation Comments POC-GLUCOSE METER 151 mg/dL 70-110 H TESTED AT [facility] 67 ([facility]) (test code = [facility] 1538) [address] HEPARIN ASSAY - [id number] 09:00:00 Test Item Value Reference Range Interpretation Comments UNFRACTIONATED HEPARIN-ANTI 10A < u/ml 0.30-0.70 L ([facility]) (test code = 1606) Recommendations [...] H (test code = 413) OXYGEN SATURATION, [id number] 08:30:00 Test Item Value Reference Range Interpretation Comments O2 SATURATION (MEASURED) (BEAKER) 87.1 % (test code = 1455) RAD, CHEST, 1 VIEW, NON [id number] 08:11:00Reason for exam:->acute respiratory insufficiencyShould this be performed at the bedside?->YesFINAL REPORT CLINICAL HISTORY: acute respiratory insufficiency TECHNIQUE: 1 view of the chest. COMPARISON: 01/15/2018 IMPRESSION: The Zuni-Moni catheter has been removed. The supporting lines and tubes are otherwise unchanged. There is no pneumothorax. Mild bilateral perihilar lung opacities have decreased. The cardiomediastinal silhouette is magnified by technique with sternotomy wires. Signed: Lorna Slade MDReport Verified Date/Time: 01/16/2018 08:11:02 Reading Location: [facility] Radiology Reading Room POCT- GLUCOSE [id number] 06:43:00 Test Item Value Reference Range Interpretation Comments POC-GLUCOSE METER 107 mg/dL 70-110 TESTED AT [facility] 6720 ([facility]) (test code = [place] 1538) [address] U/S, ABDOMINAL, [id number] 05:25:00Abdomen limited area? Add comment if clarification [...] MDReport Verified Date/Time: 01/16/2018 05:25:06 Reading Location: [address] Body Reading Room IC ACID, ARTERIAL, WHOLE [id number] 04:06:00 Test Item Value Reference Range Interpretation Comments LACTATE BLOOD ARTERIAL (2) 0.6 mmol/L 0.5-2.2 (BEAKER) (test code = 2874) Effective 01/04/2016: Units/Reference Range ChangeNew: 0.5-2.2 mmol/L Previous: 5-20 mg/dLSpecimen moderately [id number] 04:00:00 Test Item Value Reference Range Interpretation Comments PHOSPHORUS (BEAKER) (test code = 2.2 mg/dL 2.3-4.7 L 604) [id number] 04:00:00 Test Item Value Reference Range Interpretation Comments MAGNESIUM (BEAKER) (test code = 2.0 mg/dL 1.6-2.6 627) [id number] 04:00:00 Test Item Value Reference Range Interpretation Comments CALCIUM (BEAKER) (test code = 697) 8.5 mg/dL 8.4-10.2 COMPREHENSIVE METABOLIC [id number] 04:00:00 Test Item Value Reference Range Interpretation [...] DIALYSIS PATIEN TS. Specimen moderately ictericHEPATIC FUNCTION [id number] 04:00:00 Test Item Value Reference Range Interpretation [...] 6-55 H 347) Specimen moderately ictericBLOOD GAS, [id number] 03:51:00 Test Item Value Reference Range Interpretation [...] (test code = 1819) 60.0 % PROTHROMBIN [id number] 03:51:00 Test Item Value Reference Range Interpretation Comments PROTIME (BEAKER) (test code = 15.2 seconds 11.7-14.7 H 759) INR (BEAKER) (test code = 370) 1.2 <=5.9 RECOMMENDED COUMADIN/WARFARIN INR THERAPY RANGESSTANDARD DOSE: 2.0 - 3.0 Includes: PROPHYLAXIS forvenous thrombosis, systemic embolization; TREATMENT for venous thrombosis and/or pulmonary embolus.HIGH RISK: Target INR is 2.5-3.5 for patients with mechanical heart valves.CALCIUM, [id number] 03:51:00 Test Item Value Reference Range Interpretation Comments CALCIUM IONIZED (BEAKER) (test 1.17 mmol/L 1.12-1.27 code = 698) PH, BLOOD (BEAKER) (test code = 7.42 1810) POCT-GLUCOSE [id number] 02:08:00 Test Item Value Reference Range Interpretation Comments POC-GLUCOSE METER 110 mg/dL 70-110 TESTED AT [place] [address] ([facility]) (test code = [place] [facility] 1538) [address] POCT-GLUCOSE [id number] 01:14:00 Test Item Value Reference Range Interpretation Comments POC-GLUCOSE METER 107 mg/dL 70-110 TESTED AT [place] [address] ([facility]) (test code = [facility] [place] [facility] 1538) [address] POCT-GLUCOSE [id number] 00:29:00 Test Item Value Reference Range Interpretation Comments POC-GLUCOSE METER 129 mg/dL 70-110 H TESTED AT [place] [address] ([facility]) (test code = [facility] [place] [facility] 1538) [address] POCT-GLUCOSE [id number] 23:07:00 Test Item Value Reference Range Interpretation Comments POC-GLUCOSE METER 152 mg/dL 70-110 H TESTED AT [place] [address] ([facility]) (test code = [facility] [place] [facility] 1538) [address] POCT-GLUCOSE [id number] 22:09:00 Test Item Value Reference Range Interpretation Comments POC-GLUCOSE METER 171 mg/dL 70-110 H TESTED AT [place] [address] ([facility]) (test code = [facility] 1538) [address] POCT-GLUCOSE [id number] 21:13:00 Test Item Value Reference Range Interpretation Comments POC-GLUCOSE METER 171 mg/dL 70-110 H TESTED AT [place] [address] ([facility]) (test code = [facility] 1538) [address] CALCIUM, [id number] 20:50:00 Test Item Value Reference Range Interpretation Comments CALCIUM IONIZED ([facility]) (test 1.15 mmol/L 1.12-1.27 code = 698) PH, BLOOD ([facility]) (test code = 7.34 1810) POCT-GLUCOSE [id number] 20:21:00 Test Item Value Reference Range Interpretation Comments POC-GLUCOSE METER 206 mg/dL 70-110 H TESTED AT [place] [address] ([facility]) (test code = [facility] 1538) [address] POCT-GLUCOSE [id number] 19:16:00 Test Item Value Reference Range Interpretation Comments POC-GLUCOSE METER 197 mg/dL 70-110 H TESTED AT [facility] 6720 (JARROD) (test code = [place] 1538) [address] [id number] 17:15:00 Test Item Value Reference Range Interpretation Comments PHOSPHORUS (JARROD) (test code = 4.1 mg/dL 2.3-4.7 604) [id number] 17:15:00 Test Item Value Reference Range Interpretation Comments MAGNESIUM (JARROD) (test code = 1.9 mg/dL 1.6-2.6 627) EEG AWAKE AND [id number] 14:56:00For STAT EEG- after 5 PM weekdays, weekends and holidays, page the on-call EEG TechReason for exam:->AMSShould this be performed at the bedside?->YesDate(s) of EE01/15/2018DATE OF REPORT: 01/15/2018ACC: [id number] Number: [id number] Location: Inpatient ICUStart time: 13:18Stop time: 13:40ICD-10: R41.82CPT Code: 14472 HISTORY: 62 y/o man with hxof AFib, [...] Kwon MD, MSClinic al Neurophysiology/Epilepsy Attending HEPARIN [id number] 13:21:00 Test Item Value Reference Range Interpretation Comments HEPARIN ANTIBODY ([facility]) (test code Negative Negative = 646) HEPARIN ANTIBODY OD ([facility]) (test 0.076 <0.400 code = 2659) 4T TOTAL SCORE ([facility]) (test code = 5 5041) Probability of HIT based on scoring system: 6-8 = High probability; 4-5 = intermediate probability;0-3 = low probabilityPOCT-GLUCOSE [id number] 12:26:00 Test Item Value Reference Range Interpretation Comments POC-GLUCOSE METER 128 mg/dL 70-110 H TESTED AT [facility] 67[address] ([facility]) (test code = [place] [facility] 1538) [address] FIBRIN SOLUBLE [id number] 11:02:00 Test Item Value Reference Range Interpretation Comments FIBRIN SOLUBLE MONOMER ([facility]) Negative (test code = 1416) HEPARIN ASSAY - [id number] 10:20:00 Test Item Value Reference Range Interpretation Comments UNFRACTIONATED HEPARIN-ANTI 10A < u/ml 0.30-0.70 L ([facility]) (test code = 1606) Recommendations for Monitoring Unfractionated Heparin Therapeutic Range: 0.3- 0.7 u/mL with continuous IV [id number]-[id number] 10:14:00 Test Item Value Reference Range Interpretation Comments D-DIMER QUANTITATIVE ([facility]) 3.76 MG/L FEU <0.50 H [...] of thrombosis is within 95-100% range. GLUCOSE-STAT [id number] 10:03:00 Test Item Value Reference Range Interpretation Comments GLUCOSE RANDOM (BEAKER) (test code 151 mg/dL 70-110 H = 652) CALCIUM, [id number] 10:02:00 Test Item Value Reference Range Interpretation Comments CALCIUM IONIZED (BEAKER) (test 1.13 mmol/L 1.12-1.27 code = 698) PH, BLOOD (BEAKER) (test code = 7.36 1810) POTASSIUM-STAT [id number] 10:01:00 Test Item Value Reference Range Interpretation Comments POTASSIUM (BEAKER) (test code = 4.3 meq/L 3.6-5.5 379) CBC W/PLT COUNT & AUTO [id number] 07:43:00 Test Item Value Reference Range Interpretation [...] = 2801) RAD, CHEST, 1 VIEW, NON [id number] 04:00:00Reason for exam:->acute respiratory insufficiencyShould this be performed at the bedside?->Yes Addendum BeginsREPORT STATUS:A Correction: Comparison is made to previous dated 01/14/2018. Signed: Kellen Parra Verified Date/Time: 01/15/2018 04:00:43 Reading Location: [address] Reading RoomAddendum EndsFINAL REPORT CLINICAL ADEEL CATION: Respiratory insufficiency Comparison: 01/15/2018 The cardiomediastinal contours are stable. Central pulmonary vascular congestion and bilateral parenchymal opacities are unchanged. There is no pneumothorax. Support lines are stable. Signed: Kellen Parra Verified Date/Time: 01/15/201803:46:27 Reading Location: [address] Reading Room [id number] 03:36:00 Test Item Value Reference Range Interpretation Comments PHOSPHORUS (BEAKER) (test code = 2.7 mg/dL 2.3-4.7 604) [id number] 03:36:00 Test Item Value Reference Range Interpretation Comments MAGNESIUM (BEAKER) (test code = 2.0 mg/dL 1.6-2.6 627) COMPREHENSIVE METABOLIC [id number] 03:36:00 Test Item Value Reference Range Interpretation [...] DIALYSIS PATIEN TS. Specimen slightly ictericHEPATIC FUNCTION [id number] 03:36:00 Test Item Value Reference Range Interpretation [...] U/L 6-55 H 347) Specimen slightly ictericPROTHROMBIN [id number] 03:35:00 Test Item Value Reference Range Interpretation [...] mmol/L Previous: 5-20 mg/dLSpecimen slightly ictericBLOOD GAS, [id number] 03:29:00 Test Item Value Reference Range Interpretation [...] 37.0 C (test code = 1818) FIO2 ([facility]) (test code = 1819) 40.0 % OXYGEN SATURATION, [id number] 03:26:00 Test Item Value Reference Range Interpretation Comments O2 SATURATION (MEASURED) ([facility]) 72.5 % (test code = 1455) CALCIUM, [id number] 00:17:00 Test Item Value Reference Range Interpretation Comments CALCIUM IONIZED ([facility]) (test 1.19 mmol/L 1.12-1.27 code = 698) PH, BLOOD ([facility]) (test code = 7.36 1810) POCT-GLUCOSE [id number] 00:15:00 Test Item Value Reference Range Interpretation Comments POC-GLUCOSE METER 144 mg/dL 70-110 H TESTED AT [place] [address] ([facility]) (test code = [facility] 1538) [address] POCT-GLUCOSE [id number] 22:43:00 Test Item Value Reference Range Interpretation Comments POC-GLUCOSE METER 98 mg/dL 70-110 TESTED AT [place] [address] ([facility]) (test code = [facility] [address] 1538) POCT-GLUCOSE [id number] 22:43:00 Test Item Value Reference Range Interpretation Comments POC-GLUCOSE METER 80 mg/dL 70-110 TESTED AT [place] [address] ([facility]) (test code = [facility] [address] 1538) VANCOMYCIN LEVEL, [id number] 20:20:00 Test Item Value Reference Range Interpretation Comments VANCOMYCIN TROUGH ([facility]) (test 20.1 ug/mL 10.0-20.0 H code = 522) Before vanc [id number] 16:52:00 Test Item Value Reference Range Interpretation Comments PHOSPHORUS (AKER) (test code = 1.7 mg/dL 2.3-4.7 L 604) [id number] 16:52:00 Test Item Value Reference Range Interpretation Comments MAGNESIUM (BEAKER) (test code = 2.3 mg/dL 1.6-2.6 627) [id number] 16:39:00 Test Item Value Reference Range Interpretation Comments AMMONIA ([facility]) (test code = 348) 32 mol/L 18-72 PH, [id number] 16:01:00 Test Item Value Reference Range Interpretation Comments PH ARTERIAL (BEAKER) (test code = 383) 7.42 7.35-7.45 GLUCOSE-STAT [id number] 16:01:00 Test Item Value Reference Range Interpretation Comments GLUCOSE RANDOM (BEAKER) (test code = 95 mg/dL 70-110 652) POTASSIUM-STAT [id number] 16:01:00 Test Item Value Reference Range Interpretation Comments POTASSIUM (BEAKER) (test code = 4.3 meq/L 3.6-5.5 379) CALCIUM, [id number] 16:01:00 Test Item Value Reference Range Interpretation Comments CALCIUM IONIZED (BEAKER) (test 1.28 mmol/L 1.12-1.27 H code = 698) PH, BLOOD (BEAKER) (test code = 7.42 1810) CALCIUM, [id number] 12:19:00 Test Item Value Reference Range Interpretation Comments CALCIUM IONIZED (BEAKER) (test 1.36 mmol/L 1.12-1.27 H code = 698) PH, BLOOD (BEAKER) (test code = 7.41 1810) GLUCOSE-STAT [id number] 12:17:00 Test Item Value Reference Range Interpretation Comments GLUCOSE RANDOM (BEAKER) (test code = 94 mg/dL 70-110 652) POTASSIUM-STAT [id number] 12:17:00 Test Item Value Reference Range Interpretation Comments POTASSIUM (BEAKER) (test code = 4.3 meq/L 3.6-5.5 379) [id number] 11:34:00 Test Item Value Reference Range Interpretation Comments MAGNESIUM (BEAKER) (test code = 2.1 mg/dL 1.6-2.6 627) BASIC METABOLIC [id number] 11:34:00 Test Item Value Reference Range Interpretation [...] DIALYSIS PATIEN TS. Specimen slightly ictericHEPATIC FUNCTION [id number] 11:34:00 Test Item Value Reference Range Interpretation [...] 6-55 H 347) Specimen slightly ictericBLOOD GAS, [id number] 09:44:00 Test Item Value Reference Range Interpretation [...] (test code = 1819) 100.0 % GLUCOSE-STAT [id number] 09:42:00 Test Item Value Reference Range Interpretation Comments GLUCOSE RANDOM (BEAKER) (test code = 95 mg/dL 70-110 652) POTASSIUM-STAT [id number] 09:42:00 Test Item Value Reference Range Interpretation Comments POTASSIUM (BEAKER) (test code = 4.5 meq/L 3.6-5.5 379) CALCIUM, [id number] 09:38:00 Test Item Value Reference Range Interpretation Comments CALCIUM IONIZED (BEAKER) (test 1.26 mmol/L 1.12-1.27 code = 698) PH, BLOOD (BEAKER) (test code = 7.41 1810) HEPARIN ASSAY - [id number] 08:44:00 Test Item Value Reference Range Interpretation Comments UNFRACTIONATED HEPARIN-ANTI 10A < u/ml 0.30-0.70 L (BEAKER) (test code = 1606) Recommendations for Monitoring Unfractionated Heparin Therapeutic Range: 0.3- 0.7 u/mL with continuous IV infusionGLUCOSE-STAT [id number] 06:41:00 Test Item Value Reference Range Interpretation [...] (test 0.0 % 0.0-5.0 code = 1414) [id number] 05:05:00 Test Item Value Reference Range Interpretation Comments PHOSPHORUS (BEAKER) (test code = 2.5 mg/dL 2.3-4.7 604) [id number] 05:05:00 Test Item Value Reference Range Interpretation Comments MAGNESIUM (BEAKER) (test code = 2.1 mg/dL 1.6-2.6 627) HEPATIC FUNCTION [id number] 05:05:00 Test Item Value Reference Range Interpretation [...] 1266 U/L 6-55 H 347) Specimen slightly [id number] 05:05:00 Test Item Value Reference Range Interpretation Comments CALCIUM (BEAKER) (test code = 697) 9.0 mg/dL 8.4-10.2 LACTATE DEHYDROGENASE (LDH)2018-01-14 05:05:00 Test Item Value Reference Range Interpretation Comments LACTATE DEHYDROGENASE (BEAKER) (test 667 U/L 125-220 H code = 635) PROTHROMBIN [id number] 05:05:00 Test Item Value Reference Range Interpretation Comments PROTIME (BEAKER) (test code = 15.2 seconds 11.7-14.7 H 759) INR (BEAKER) (test code = 370) 1.2 <=5.9 RECOMMENDED COUMADIN/WARFARIN INR THERAPY RANGESSTANDARD DOSE: 2.0 - 3.0 Includes: PROPHYLAXIS forvenous thrombosis, systemic embolization; TREATMENT for venous thrombosis and/or pulmonary embolus.HIGH RISK: Target INR is 2.5-3.5 for patients with mechanical heart valves.[id number] 05:05:00 Test Item Value Reference Range Interpretation Comments FIBRINOGEN LEVEL (BEAKER) (test 280 mg/dl 225-434 code = 658) RAD, CHEST, 1 VIEW, NON [id number] 04:57:00Reason for exam:- >impella/ECMO/intubationShould this be performed at the bedside?->YesFINAL REPORT CLINICAL INDICATION: Support lines. Comparison: 01/13/2018 The cardiomediastinal contours are stable. Cardiac opacities may reflect atelectasis but pneumonitis should be excluded clinically. There is no pneumothorax. Support lines are stable. Signed: Kellen Parra MDReport Verified Date/Time: 01/14/2018 04:57:02 Reading Location: [address] Reading Room LACTIC ACID, ARTERIAL, WHOLE [id number] 04:55:00 Test Item Value Reference Range Interpretation [...] H (BEAKER) (test code = 413) CALCIUM, [id number] 04:39:00 Test Item Value Reference Range Interpretation Comments CALCIUM IONIZED (BEAKER) (test 1.20 mmol/L 1.12-1.27 code = 698) PH, BLOOD (BEAKER) (test code = 7.37 1810) OXYGEN SATURATION, [id number] 04:38:00 Test Item Value Reference Range Interpretation Comments O2 SATURATION (MEASURED) (BEAKER) 75.3 % (test code = 1455) BLOOD GAS, [id number] 04:37:00 Test Item Value Reference Range Interpretation [...] (test code = 1819) 40.0 % GLUCOSE-STAT [id number] 04:37:00 Test Item Value Reference Range Interpretation Comments GLUCOSE RANDOM (BEAKER) (test code 154 mg/dL 70-110 H = 652) GLUCOSE-STAT [id number] 02:52:00 Test Item Value Reference Range Interpretation Comments GLUCOSE RANDOM (BEAKER) (test code 179 mg/dL 70-110 H = 652) GLUCOSE-STAT [id number] 01:26:00 Test Item Value Reference Range Interpretation Comments GLUCOSE RANDOM (BEAKER) (test code 195 mg/dL 70-110 H = 652) [id number] 00:08:00 Test Item Value Reference Range Interpretation Comments POTASSIUM (BEAKER) (test code = 4.2 meq/L 3.5-5.1 379) [id number] 00:08:00 Test Item Value Reference Range Interpretation Comments GLUCOSE RANDOM (BEAKER) (test code 237 mg/dL 70-105 H = 652) CBC W/PLT COUNT & AUTO [id number] 22:28:00 Test Item Value Reference Range Interpretation [...] = 413) RAD, CHEST, 1 VIEW, NON [id number] 21:50:00Reason for exam:->chest tubes/intubationShould this be performed [...] MDReport Verified Date/Time: 01/13/2018 21:50:50 Reading Location: [facility] C013W Consult Reading Room THROMBOELASTOGRAPH (TEG)2018-01-13 [...] % 0.0-5.0 code = 1414) BASIC METABOLIC [id number] 21:35:00 Test Item Value Reference Range Interpretation [...] APPLICABLE FOR DIALYSIS PATIEN TS. Specimen slightly [id number] 21:06:00 Test Item Value Reference Range Interpretation Comments PHOSPHORUS (BEAKER) (test code = 3.7 mg/dL 2.3-4.7 604) [id number] 21:06:00 Test Item Value Reference Range Interpretation Comments MAGNESIUM (BEAKER) (test code = 2.0 mg/dL 1.6-2.6 627) LACTIC ACID, ARTERIAL, WHOLE [id number] 21:06:00 Test Item Value Reference Range Interpretation Comments LACTATE BLOOD ARTERIAL (2) 1.8 mmol/L 0.5-2.2 (BEAKER) (test code = 2874) Effective 01/04/2016: Units/Reference Range ChangeNew: 0.5-2.2 mmol/L Previous: 5-20 mg/dLSpecimen slightly [id number] 21:01:00 Test Item Value Reference Range Interpretation Comments PARTIAL THROMBOPLASTIN TIME 35.1 seconds 22.5-36.0 (BEAKER) (test code = 760) [id number] 21:00:00 Test Item Value Reference Range Interpretation Comments FIBRINOGEN LEVEL (BEAKER) (test 253 mg/dl 225-434 code = 658) PROTHROMBIN [id number] 20:59:00 Test Item Value Reference Range Interpretation Comments PROTIME (BEAKER) (test code = 16.4 seconds 11.7-14.7 H 759) INR (BEAKER) (test code = 370) 1.3 <=5.9 RECOMMENDED COUMADIN/WARFARIN INR THERAPY RANGESSTANDARD DOSE: 2.0 - 3.0 Includes: PROPHYLAXIS forvenous thrombosis, systemic embolization; TREATMENT for venous thrombosis and/or pulmonary embolus.HIGH RISK: Target INR is 2.5-3.5 for patients with mechanical heart valves.BLOOD GAS, [id number] 20:47:00 Test Item Value Reference Range Interpretation [...] (test code = 1819) 40.0 % GLUCOSE-STAT [id number] 20:47:00 Test Item Value Reference Range Interpretation Comments GLUCOSE RANDOM (BEAKER) (test code 235 mg/dL 70-110 H = 652) CALCIUM, [id number] 20:47:00 Test Item Value Reference Range Interpretation Comments CALCIUM IONIZED (BEAKER) (test 0.97 mmol/L 1.12-1.27 L code = 698) PH, BLOOD (BEAKER) (test code = 7.39 1810) HGB/HCT (H&H) - STAT [id number] 20:46:00 Test Item Value Reference Range Interpretation Comments HEMOGLOBIN (BEAKER) (test code = 7.7 g/dL 13.0-16.8 L 410) HEMATOCRIT (BEAKER) (test code = 23.0 % 40.0-50.0 L 411) POTASSIUM-STAT [id number] 20:46:00 Test Item Value Reference Range Interpretation Comments POTASSIUM (BEAKER) (test code = 3.4 meq/L 3.6-5.5 L 379) SODIUM NA-STAT [id number] 20:46:00 Test Item Value Reference Range Interpretation Comments SODIUM (BEAKER) (test code = 381) 133 meq/L 135-148 L OXYGEN SATURATION, [id number] 20:42:00 Test Item Value Reference Range Interpretation Comments O2 SATURATION (MEASURED) (BEAKER) 74.1 % (test code = 1455) BLOOD GAS, [id number] 18:58:00 Test Item Value Reference Range Interpretation [...] code = 1819) 100.0 % SODIUM NA-STAT [id number] 18:58:00 Test Item Value Reference Range Interpretation Comments SODIUM (BEAKER) (test code = 381) 131 meq/L 135-148 L POTASSIUM-STAT [id number] 18:58:00 Test Item Value Reference Range Interpretation Comments POTASSIUM (BEAKER) (test code = 3.4 meq/L 3.6-5.5 L 379) GLUCOSE-STAT [id number] 18:58:00 Test Item Value Reference Range Interpretation Comments GLUCOSE RANDOM (BEAKER) (test code 214 mg/dL 70-110 H = 652) HGB/HCT (H&H) - STAT [id number] 18:58:00 Test Item Value Reference Range Interpretation [...] % 0.0-5.0 code = 1414) BLOOD GAS, [id number] 18:11:00 Test Item Value Reference Range Interpretation [...] code = 1819) 97.0 % SODIUM NA-STAT [id number] 18:11:00 Test Item Value Reference Range Interpretation Comments SODIUM (BEAKER) (test code = 381) 132 meq/L 135-148 L GLUCOSE-STAT [id number] 18:11:00 Test Item Value Reference Range Interpretation Comments GLUCOSE RANDOM (BEAKER) (test code 200 mg/dL 70-110 H = 652) HGB/HCT (H&H) - STAT [id number] 18:11:00 Test Item Value Reference Range Interpretation Comments HEMOGLOBIN (BEAKER) (test code = 8.2 g/dL 13.0-16.8 L 410) HEMATOCRIT (BEAKER) (test code = 24.0 % 40.0-50.0 L 411) POTASSIUM-STAT [id number] 18:07:00 Test Item Value Reference Range Interpretation Comments POTASSIUM (BEAKER) (test code = 3.5 meq/L 3.6-5.5 L 379) [id number] 16:37:00 Test Item Value Reference Range Interpretation Comments PHOSPHORUS (BEAKER) (test code = 2.5 mg/dL 2.3-4.7 604) [id number] 16:37:00 Test Item Value Reference Range Interpretation Comments MAGNESIUM (BEAKER) (test code = 2.1 mg/dL 1.6-2.6 627) [id number] 16:29:00 Test Item Value Reference Range Interpretation [...] for patients with mechanical heart valves.BLOOD GAS, [id number] 16:16:00 Test Item Value Reference Range Interpretation [...] (test code = 1819) 40.0 % CALCIUM, [id number] 16:14:00 Test Item Value Reference Range Interpretation Comments CALCIUM IONIZED (BEAKER) (test 1.09 mmol/L 1.12-1.27 L code = 698) PH, BLOOD (BEAKER) (test code = 7.64 1810) GLUCOSE-STAT [id number] 16:12:00 Test Item Value Reference Range Interpretation Comments GLUCOSE RANDOM (BEAKER) (test code 182 mg/dL 70-110 H = 652) CALCIUM, [id number] 12:53:00 Test Item Value Reference Range Interpretation Comments CALCIUM IONIZED (BEAKER) (test 1.12 mmol/L 1.12-1.27 code = 698) PH, BLOOD (BEAKER) (test code = 7.51 1810) BLOOD GAS, [id number] 12:53:00 Test Item Value Reference Range Interpretation [...] 1819) 40.0 % HGB/HCT (H&H) - STAT [id number] 12:53:00 Test Item Value Reference Range Interpretation Comments HEMOGLOBIN (BEAKER) (test code = 8.3 g/dL 13.0-16.8 L 410) HEMATOCRIT (BEAKER) (test code = 24.0 % 40.0-50.0 L 411) GLUCOSE-STAT [id number] 12:53:00 Test Item Value Reference Range Interpretation Comments GLUCOSE RANDOM (BEAKER) (test code 185 mg/dL 70-110 H = 652) POTASSIUM-STAT [id number] 12:52:00 Test Item Value Reference Range Interpretation Comments POTASSIUM (BEAKER) (test code = 3.7 meq/L 3.6-5.5 379) CBC W/PLT COUNT & AUTO [id number] 11:04:00 Test Item Value Reference Range Interpretation [...] 0-0 H (test code = 413) POTASSIUM-STAT [id number] 10:49:00 Test Item Value Reference Range Interpretation Comments POTASSIUM (BEAKER) (test code = 3.8 meq/L 3.6-5.5 379) HEPARIN ASSAY - [id number] 09:55:00 Test Item Value Reference Range Interpretation Comments UNFRACTIONATED HEPARIN-ANTI 10A 0.14 u/ml 0.30-0.70 L (BEAKER) (test code = 1606) Recommendations for Monitoring Unfractionated Heparin Therapeutic Range: 0.3- 0.7 u/mL with continuous IV [id number] 09:54:00 Test Item Value Reference Range Interpretation Comments PARTIAL THROMBOPLASTIN TIME 57.6 seconds 22.5-36.0 H (BEAKER) (test code = 760) BLOOD GAS, [id number] 09:33:00 Test Item Value Reference Range Interpretation [...] (test code = 1819) 40.0 % GLUCOSE-STAT [id number] 09:33:00 Test Item Value Reference Range Interpretation Comments GLUCOSE RANDOM (BEAKER) (test code 192 mg/dL 70-110 H = 652) GLUCOSE-STAT [id number] 09:33:00 Test Item Value Reference Range Interpretation Comments GLUCOSE RANDOM (BEAKER) (test code 192 mg/dL 70-110 H = 652) CALCIUM, [id number] 09:32:00 Test Item Value Reference Range Interpretation Comments CALCIUM IONIZED (BEAKER) (test 1.15 mmol/L 1.12-1.27 code = 698) PH, BLOOD (BEAKER) (test code = 7.51 1810) BLOOD GAS, [id number] 07:23:00 Test Item Value Reference Range Interpretation [...] % 0.0-5.0 code = 1414) BLOOD GAS, [id number] 06:13:00 Test Item Value Reference Range Interpretation [...] code = 1819) 40.0 % BLOOD GAS, [id number] 05:13:00 Test Item Value Reference Range Interpretation [...] (BEAKER) (test code = 1819) 100.0 % [id number] 04:41:00 Test Item Value Reference Range Interpretation Comments PARTIAL THROMBOPLASTIN TIME 61.3 seconds 22.5-36.0 H (BEAKER) (test code = 760) RAD, CHEST, 1 VIEW, NON [id number] 04:38:00Reason for exam:- >impella/ECMO/intubationShould this be performed at the bedside?->YesFINAL REPORT CLINICAL INDICATION: Support lines. Comparison: 01/12/2018 The cardiomediastinal contours are stable. Central pulmonary vascular prominence and bilateral parenchymalopacities are previous. There is no pneumothorax. Support lines are stable. Signed: Kellen Parraepdamion Verified Date/Time: 01/13/2018 04:38:41 Reading Location: [address] Reading Room HEPATIC FUNCTION [id number] 04:25:00 Test Item Value Reference Range Interpretation [...] 2232 U/L 6-55 H 347) Specimen slightly [id number] 04:19:00 Test Item Value Reference Range Interpretation Comments PHOSPHORUS (BEAKER) (test code = 4.1 mg/dL 2.3-4.7 604) [id number] 04:19:00 Test Item Value Reference Range Interpretation Comments MAGNESIUM (BEAKER) (test code = 1.9 mg/dL 1.6-2.6 627) [id number] 04:19:00 Test Item Value Reference Range Interpretation Comments CALCIUM (BEAKER) (test code = 697) 8.6 mg/dL 8.4-10.2 BASIC METABOLIC [id number] 04:19:00 Test Item Value Reference Range Interpretation [...] 1658 U/L 125-220 H code = 635) [id number] 04:16:00 Test Item Value Reference Range Interpretation Comments FIBRINOGEN LEVEL (BEAKER) (test 299 mg/dl 225-434 code = 658) LACTIC ACID, ARTERIAL, WHOLE [id number] 04:16:00 Test Item Value Reference Range Interpretation Comments LACTATE BLOOD ARTERIAL (2) 0.8 mmol/L 0.5-2.2 (BEAKER) (test code = 2874) Effective 01/04/2016: Units/Reference Range ChangeNew: 0.5-2.2 mmol/L Previous: 5-20 mg/dLSpecimen slightly ictericPROTHROMBIN [id number] 04:15:00 Test Item Value Reference Range Interpretation Comments PROTIME (BEAKER) (test code = 15.8 seconds 11.7-14.7 H 759) INR (BEAKER) (test code = 370) 1.3 <=5.9 RECOMMENDED COUMADIN/WARFARIN INR THERAPY RANGESSTANDARD DOSE: 2.0 - 3.0 Includes: PROPHYLAXIS forvenous thrombosis, systemic embolization; TREATMENT for venous thrombosis and/or pulmonary embolus.HIGH RISK: Target INR is 2.5-3.5 for patients with mechanical heart valves.CALCIUM, [id number] 04:04:00 Test Item Value Reference Range Interpretation Comments CALCIUM IONIZED (BEAKER) (test 1.15 mmol/L 1.12-1.27 code = 698) PH, BLOOD (BEAKER) (test code = 7.33 1810) BLOOD GAS, [id number] 04:03:00 Test Item Value Reference Range Interpretation [...] (test code = 1819) 40.0 % PLATELET [id number] 03:58:00 Test Item Value Reference Range Interpretation Comments PLATELET COUNT (BEAKER) (test code 89 K/CU MM 150-450 L = 756) OXYGEN SATURATION, [id number] 03:57:00 Test Item Value Reference Range Interpretation Comments O2 SATURATION (MEASURED) (BEAKER) 79.4 % (test code = 1455) BLOOD GAS, [id number] 01:19:00 Test Item Value Reference Range Interpretation [...] (test code = 1819) 40.0 % GLUCOSE-STAT [id number] 01:19:00 Test Item Value Reference Range Interpretation Comments GLUCOSE RANDOM (BEAKER) (test code 177 mg/dL 70-110 H = 652) POTASSIUM-STAT [id number] 01:18:00 Test Item Value Reference Range Interpretation Comments POTASSIUM (BEAKER) (test code = 4.0 meq/L 3.6-5.5 379) CALCIUM, [id number] 01:17:00 Test Item Value Reference Range Interpretation [...] (test 0.0 % 0.0-5.0 code = 1414) [id number] 20:36:00 Test Item Value Reference Range Interpretation Comments POTASSIUM (BEAKER) (test code = 4.2 meq/L 3.5-5.1 379) [id number] 20:36:00 Test Item Value Reference Range Interpretation Comments MAGNESIUM (BEAKER) (test code = 1.8 mg/dL 1.6-2.6 627) [id number] 20:36:00 Test Item Value Reference Range Interpretation Comments PHOSPHORUS (BEAKER) (test code = 3.5 mg/dL 2.3-4.7 604) LACTIC ACID, ARTERIAL, WHOLE [id number] 20:33:00 Test Item Value Reference Range Interpretation Comments LACTATE BLOOD ARTERIAL (2) 0.8 mmol/L 0.5-2.2 (BEAKER) (test code = 2874) Effective 01/04/2016: Units/Reference Range ChangeNew: 0.5-2.2 mmol/L Previous: 5-20 mg/dLSpecimen slightly ictericBLOOD GAS, [id number] 20:20:00 Test Item Value Reference Range Interpretation [...] (test code = 1819) 40.0 % GLUCOSE-STAT [id number] 20:20:00 Test Item Value Reference Range Interpretation Comments GLUCOSE RANDOM (BEAKER) (test code 180 mg/dL 70-110 H = 652) [id number] 18:34:00 Test Item Value Reference Range Interpretation Comments GLUCOSE RANDOM (BEAKER) (test code 218 mg/dL 70-105 H = 652) BLOOD GAS, [id number] 18:18:00 Test Item Value Reference Range Interpretation [...] (BEAKER) (test code = 1819) 40.0 % [id number] 17:12:00 Test Item Value Reference Range Interpretation Comments PARTIAL THROMBOPLASTIN TIME 54.1 seconds 22.5-36.0 H (BEAKER) (test code = 760) [id number] 17:12:00 Test Item Value Reference Range Interpretation Comments FIBRINOGEN LEVEL (BEAKER) (test 285 mg/dl 225-434 code = 658) PROTHROMBIN [id number] 17:10:00 Test Item Value Reference Range Interpretation [...] ChangeNew: 0.5-2.2 mmol/L Previous: 5-20 mg/dLSpecimen slightly [id number] 17:01:00 Test Item Value Reference Range Interpretation Comments POTASSIUM (BEAKER) (test code = 4.5 meq/L 3.5-5.1 379) [id number] 17:01:00 Test Item Value Reference Range Interpretation Comments GLUCOSE RANDOM (BEAKER) (test code 239 mg/dL 70-105 H = 652) PLATELET [id number] 16:46:00 Test Item Value Reference Range Interpretation Comments PLATELET COUNT (BEAKER) (test code 86 K/CU MM 150-450 L = 756) BLOOD GAS, [id number] 16:36:00 Test Item Value Reference Range Interpretation [...] (test 37.0 C code = 1818) CALCIUM, [id number] 16:36:00 Test Item Value Reference Range Interpretation Comments CALCIUM IONIZED (BEAKER) (test 1.08 mmol/L 1.12-1.27 L code = 698) PH, BLOOD (BEAKER) (test code = 7.46 1810) [id number] 15:00:00 Test Item Value Reference Range Interpretation Comments POTASSIUM (BEAKER) (test code = 4.7 meq/L 3.5-5.1 379) [id number] 15:00:00 Test Item Value Reference Range Interpretation Comments GLUCOSE RANDOM (BEAKER) (test code 210 mg/dL 70-105 H = 652) BLOOD GAS, [id number] 14:42:00 Test Item Value Reference Range Interpretation [...] 40.0 % RAD, CHEST, 1 VIEW, NON [id number] 14:41:00Reason for exam:->chest tube insertionFINAL REPORT CHEST [...] MDReport Verified Date/Time: 01/12/2018 14:41:22 Reading Location: [facility] C0[facility] Transitional Reading Room MBOELASTOGRAPH (TEG)2018-01-12 12:43:00 [...] (test 0.0 % 0.0-5.0 code = 1414) [id number] 11:23:00 Test Item Value Reference Range Interpretation [...] exclusion of thrombosis is within 95-100% range. [id number] 10:10:00 Test Item Value Reference Range Interpretation Comments MAGNESIUM (BEAKER) 2.1 mg/dL 1.6-2.6 Specimen slightly (test code = 627) hemolyzed [id number] 10:10:00 Test Item Value Reference Range Interpretation Comments PHOSPHORUS (BEAKER) 4.2 mg/dL 2.3-4.7 Specimen slightly (test code = 604) hemolyzed [id number] 10:10:00 Test Item Value Reference Range Interpretation Comments POTASSIUM (BEAKER) 5.0 meq/L 3.5-5.1 Specimen slightly (test code = 379) hemolyzed [id number] 10:10:00 Test Item Value Reference Range Interpretation Comments GLUCOSE RANDOM (BEAKER) (test code 204 mg/dL 70-105 H = 652) [id number] 10:07:00 Test Item Value Reference Range Interpretation Comments FIBRINOGEN LEVEL (BEAKER) (test 251 mg/dl 225-434 code = 658) ANTITHROMBIN [id number] 10:04:00 Test Item Value Reference Range Interpretation Comments ANTITHROMBIN III ACTIVITY (BEAKER) 46.0 % 80.0-120.0 L (test code = 711) [id number] 09:58:00 Test Item Value Reference Range Interpretation Comments PARTIAL THROMBOPLASTIN TIME 59.8 seconds 22.5-36.0 H (BEAKER) (test code = 760) PROTHROMBIN [id number] 09:57:00 Test Item Value Reference Range Interpretation Comments PROTIME (BEAKER) (test code = 19.3 seconds 11.7-14.7 H 759) INR (BEAKER) (test code = 370) 1.6 <=5.9 RECOMMENDED COUMADIN/WARFARIN INR THERAPY RANGESSTANDARD DOSE: 2.0 - 3.0 Includes: PROPHYLAXIS forvenous thrombosis, systemic embolization; TREATMENT for venous thrombosis and/or pulmonary embolus.HIGH RISK: Target INR is 2.5-3.5 for patients with mechanical heart valves.PLATELET [id number] 09:49:00 Test Item Value Reference Range Interpretation Comments PLATELET COUNT (BEAKER) (test code 94 K/CU MM 150-450 L = 756) BLOOD GAS, [id number] 09:47:00 Test Item Value Reference Range Interpretation [...] (test code = 1819) 40.0 % CALCIUM, [id number] 09:46:00 Test Item Value Reference Range Interpretation Comments CALCIUM IONIZED (BEAKER) (test 1.12 mmol/L 1.12-1.27 code = 698) PH, BLOOD (BEAKER) (test code = 7.47 8230) HEPARIN ASSAY - [id number] 08:21:00 Test Item Value Reference Range Interpretation Comments UNFRACTIONATED HEPARIN-ANTI 10A < u/ml 0.30-0.70 L (BEAKER) (test code = 1606) Recommendations for Monitoring Unfractionated Heparin Therapeutic Range: 0.3- 0.7 u/mL with continuous IV infusionLACTATE DEHYDROGENASE (LDH)2018-01-12 07:40:00 Test Item Value Reference Range Interpretation Comments LACTATE DEHYDROGENASE (BEAKER) (test 3247 U/L 125-220 H code = 635) [id number] 07:38:00 Test Item Value Reference Range Interpretation Comments MAGNESIUM (BEAKER) (test code = 2.3 mg/dL 1.6-2.6 627) [id number] 07:38:00 Test Item Value Reference Range Interpretation Comments GLUCOSE RANDOM (BEAKER) (test code 217 mg/dL 70-105 H = 652) LACTIC ACID, ARTERIAL, WHOLE [id number] 07:27:00 Test Item Value Reference Range Interpretation Comments LACTATE BLOOD ARTERIAL (2) 1.4 mmol/L 0.5-2.2 (BEAKER) (test code = 2874) Effective 01/04/2016: Units/Reference Range ChangeNew: 0.5-2.2 mmol/L Previous: 5-20 mg/dLSpecimen slightly ictericGLUCOSE-STAT [id number] 06:55:00 Test Item Value Reference Range Interpretation Comments GLUCOSE RANDOM (BEAKER) (test code 212 mg/dL 70-110 H = 652) BLOOD GAS, [id number] 06:55:00 Test Item Value Reference Range Interpretation [...] (test code = 1819) 40.0 % POTASSIUM-STAT [id number] 06:52:00 Test Item Value Reference Range Interpretation Comments POTASSIUM (BEAKER) (test code = 4.8 meq/L 3.6-5.5 379) BLOOD GAS, [id number] 06:43:00 Test Item Value Reference Range Interpretation [...] 100.0 % RAD, CHEST, 1 VIEW, NON [id number] 06:14:00Reason for exam:- >impella/ECMO/intubationShould this be performed [...] MDReport Verified Date/Time: 01/12/2018 06:14:29 Reading Location: [facility] C013T Transitional Reading Room LACTATE DEHYDROGENASE (LDH)2018-01-12 05:03:00 Test Item Value Reference Range Interpretation Comments LACTATE DEHYDROGENASE (BEAKER) (test 3014 U/L 125-220 H code = 635) HEPATIC FUNCTION [id number] 05:03:00 Test Item Value Reference Range Interpretation [...] 1544 U/L 6-55 H 347) Specimen slightly [id number] 05:01:00 Test Item Value Reference Range Interpretation Comments PHOSPHORUS (BEAKER) (test code = 5.0 mg/dL 2.3-4.7 H 604) [id number] 05:01:00 Test Item Value Reference Range Interpretation Comments MAGNESIUM (BEAKER) (test code = 2.1 mg/dL 1.6-2.6 627) [id number] 05:01:00 Test Item Value Reference Range Interpretation Comments CALCIUM (BEAKER) (test code = 697) 8.5 mg/dL 8.4-10.2 BASIC METABOLIC [id number] 05:01:00 Test Item Value Reference Range Interpretation [...] TS. Specimen slightly ictericLACTIC ACID, ARTERIAL, WHOLE [id number] 04:42:00 Test Item Value Reference Range Interpretation Comments LACTATE BLOOD ARTERIAL (2) 1.5 mmol/L 0.5-2.2 (BEAKER) (test code = 2874) Effective 01/04/2016: Units/Reference Range ChangeNew: 0.5-2.2 mmol/L Previous: 5-20 mg/dLSpecimen slightly [id number] 04:38:00 Test Item Value Reference Range Interpretation Comments FIBRINOGEN LEVEL (BEAKER) (test 252 mg/dl 225-434 code = 658) [id number] 04:38:00 Test Item Value Reference Range Interpretation Comments PARTIAL THROMBOPLASTIN TIME 54.6 seconds 22.5-36.0 H (BEAKER) (test code = 760) CBC W/PLT COUNT & AUTO [id number] 04:37:00 Test Item Value Reference Range Interpretation [...] PERCENT (BEAKER) (test code = 2801) PROTHROMBIN [id number] 04:37:00 Test Item Value Reference Range Interpretation Comments PROTIME (BEAKER) (test code = 19.9 seconds 11.7-14.7 H 759) INR (BEAKER) (test code = 370) 1.7 <=5.9 RECOMMENDED COUMADIN/WARFARIN INR THERAPY RANGESSTANDARD DOSE: 2.0 - 3.0 Includes: PROPHYLAXIS forvenous thrombosis, systemic embolization; TREATMENT for venous thrombosis and/or pulmonary embolus.HIGH RISK: Target INR is 2.5-3.5 for patients with mechanical heart valves.CALCIUM, [id number] 04:31:00 Test Item Value Reference Range Interpretation Comments CALCIUM IONIZED (BEAKER) (test 1.12 mmol/L 1.12-1.27 code = 698) PH, BLOOD (BEAKER) (test code = 7.42 1810) BLOOD GAS, [id number] 04:30:00 Test Item Value Reference Range Interpretation [...] (test code = 1819) 40.0 % PLATELET [id number] 04:23:00 Test Item Value Reference Range Interpretation Comments PLATELET COUNT (BEAKER) (test 110 K/CU MM 150-450 L code = 756) OXYGEN SATURATION, [id number] 04:14:00 Test Item Value Reference Range Interpretation Comments O2 SATURATION (MEASURED) (BEAKER) 79.7 % (test code = 1455) [id number] 02:54:00 Test Item Value Reference Range Interpretation Comments PARTIAL THROMBOPLASTIN TIME 134.3 seconds 22.5-36.0 H (BEAKER) (test code = 760) [id number] 02:25:00 Test Item Value Reference Range Interpretation Comments PARTIAL THROMBOPLASTIN TIME 94.0 seconds 22.5-36.0 H (BEAKER) (test code = 760) BLOOD GAS, [id number] 01:56:00 Test Item Value Reference Range Interpretation [...] (test code = 1819) 40.0 % GLUCOSE-STAT [id number] 01:53:00 Test Item Value Reference Range Interpretation Comments GLUCOSE RANDOM (BEAKER) (test code 201 mg/dL 70-110 H = 652) POTASSIUM-STAT [id number] 01:52:00 Test Item Value Reference Range Interpretation Comments POTASSIUM (BEAKER) (test code = 4.9 meq/L 3.6-5.5 379) LACTIC ACID, ARTERIAL, WHOLE [id number] 01:18:00 Test Item Value Reference Range Interpretation Comments LACTATE BLOOD ARTERIAL (2) 2.0 mmol/L 0.5-2.2 (BEAKER) (test code = 2874) Effective 01/04/2016: Units/Reference Range ChangeNew: 0.5-2.2 mmol/L Previous: 5-20 mg/dLSpecimen slightly [id number] 01:18:00 Test Item Value Reference Range Interpretation Comments POTASSIUM (BEAKER) (test code = 5.1 meq/L 3.5-5.1 379) [id number] 01:18:00 Test Item Value Reference Range Interpretation Comments GLUCOSE RANDOM (BEAKER) (test code 194 mg/dL 70-105 H = 652) PROTHROMBIN [id number] 01:15:00 Test Item Value Reference Range Interpretation Comments PROTIME (BEAKER) (test code = 21.2 seconds 11.7-14.7 H 759) INR (BEAKER) (test code = 370) 1.8 <=5.9 RECOMMENDED COUMADIN/WARFARIN INR THERAPY RANGESSTANDARD DOSE: 2.0 - 3.0 Includes: PROPHYLAXIS forvenous thrombosis, systemic embolization; TREATMENT for venous thrombosis and/or pulmonary embolus.HIGH RISK: Target INR is 2.5-3.5 for patients with mechanical heart valves.[id number] 01:15:00 Test Item Value Reference Range Interpretation Comments FIBRINOGEN LEVEL (BEAKER) (test 233 mg/dl 225-434 code = 658) PLATELET [id number] 01:01:00 Test Item Value Reference Range Interpretation Comments PLATELET COUNT (BEAKER) (test code 84 K/CU MM 150-450 L = 756) BLOOD GAS, [id number] 01:00:00 Test Item Value Reference Range Interpretation [...] (test code = 1819) 40.0 % CALCIUM, [id number] 01:00:00 Test Item Value Reference Range Interpretation [...] 0.0-5.0 (BEAKER) (test code = 1414) GLUCOSE-STAT [id number] 23:53:00 Test Item Value Reference Range Interpretation Comments GLUCOSE RANDOM (BEAKER) (test code 182 mg/dL 70-110 H = 652) BLOOD GAS, [id number] 23:52:00 Test Item Value Reference Range Interpretation [...] FIO2 (BEAKER) (test code = 1819) 40 [id number] 23:05:00 Test Item Value Reference Range Interpretation Comments PARTIAL THROMBOPLASTIN TIME > seconds 22.5-36.0 HH (BEAKER) (test code = 760) BLOOD GAS, [id number] 23:01:00 Test Item Value Reference Range Interpretation [...] (BEAKER) (test code = 1819) 100.0 % [id number] 22:46:00 Test Item Value Reference Range Interpretation Comments FIBRINOGEN LEVEL (BEAKER) (test 223 mg/dl 225-434 L code = 658) PROTHROMBIN [id number] 22:45:00 Test Item Value Reference Range Interpretation Comments PROTIME (BEAKER) (test code = 23.0 seconds 11.7-14.7 H 759) INR (BEAKER) (test code = 370) 2.0 <=5.9 RECOMMENDED COUMADIN/WARFARIN INR THERAPY RANGESSTANDARD DOSE: 2.0 - 3.0 Includes: PROPHYLAXIS forvenous thrombosis, systemic embolization; TREATMENT for venous thrombosis and/or pulmonary embolus.HIGH RISK: Target INR is 2.5-3.5 for patients with mechanical heart valves.BLOOD GAS, [id number] 22:22:00 Test Item Value Reference Range Interpretation [...] (test code = 1819) 40.0 % CALCIUM, [id number] 22:21:00 Test Item Value Reference Range Interpretation Comments CALCIUM IONIZED (BEAKER) (test 1.05 mmol/L 1.12-1.27 L code = 698) PH, BLOOD (BEAKER) (test code = 7.67 1810) PLATELET [id number] 22:21:00 Test Item Value Reference Range Interpretation Comments PLATELET COUNT (BEAKER) (test code 71 K/CU MM 150-450 L = 756) GLUCOSE-STAT [id number] 22:20:00 Test Item Value Reference Range Interpretation Comments GLUCOSE RANDOM (BEAKER) (test code 189 mg/dL 70-110 H = 652) POTASSIUM-STAT [id number] 22:19:00 Test Item Value Reference Range Interpretation [...] 2133 U/L 125-220 H code = 635) [id number] 20:55:00 Test Item Value Reference Range Interpretation Comments POTASSIUM (BEAKER) (test code = 5.4 meq/L 3.5-5.1 H 379) [id number] 20:55:00 Test Item Value Reference Range Interpretation Comments MAGNESIUM (BEAKER) (test code = 1.6 mg/dL 1.6-2.6 627) [id number] 20:55:00 Test Item Value Reference Range Interpretation Comments PHOSPHORUS (BEAKER) (test code = 2.9 mg/dL 2.3-4.7 604) GLUCOSE-STAT [id number] 20:31:00 Test Item Value Reference Range Interpretation Comments GLUCOSE RANDOM (BEAKER) (test code 166 mg/dL 70-110 H = 652) POTASSIUM-STAT [id number] 20:30:00 Test Item Value Reference Range Interpretation Comments POTASSIUM (BEAKER) (test code = 5.2 meq/L 3.6-5.5 379) BLOOD GAS, [id number] 20:30:00 Test Item Value Reference Range Interpretation [...] code = 1819) 40.0 % OXYGEN SATURATION, [id number] 18:46:00 Test Item Value Reference Range Interpretation Comments O2 SATURATION (MEASURED) (BEAKER) 81.5 % (test code = 1455) RAD, CHEST, 1 VIEW, NON [id number] 18:27:00Reason for exam:->impella/ECMO placementShould this be performed [...] MDReport Verified Date/Time: 01/11/2018 18:27:33 Reading Location: [facility] [id number] Ortho Consult Reading [id number] 18:11:00 Test Item Value Reference Range Interpretation Comments PARTIAL THROMBOPLASTIN TIME > seconds 22.5-36.0 HH (BEAKER) (test code = 760) LACTATE DEHYDROGENASE (LDH)2018-01-11 18:09:00 Test Item Value Reference Range Interpretation Comments LACTATE DEHYDROGENASE 1590 U/L 125-220 H Specim en slightly (BEAKER) (test code = hemoly zed 635) BASIC METABOLIC [id number] 18:08:00 Test Item Value Reference Range Interpretation [...] S NOT APPLICABLE FOR DIALYSIS PATIEN TS. [id number] 17:54:00 Test Item Value Reference Range Interpretation Comments MAGNESIUM (BEAKER) 1.8 mg/dL 1.6-2.6 Specimen slightly (test code = 627) hemolyzed [id number] 17:54:00 Test Item Value Reference Range Interpretation Comments PHOSPHORUS (BEAKER) 4.6 mg/dL 2.3-4.7 Specimen slightly (test code = 604) hemolyzed LACTIC ACID, ARTERIAL, WHOLE [id number] 17:53:00 Test Item Value Reference Range Interpretation Comments LACTATE BLOOD 10.8 mmol/L 0.5-2.2 H Specimen sligh tly ARTERIAL (2) (BEAKER) hemoly zed (test code = 2874) Effective 01/04/2016: Units/Reference Range ChangeNew: 0.5-2.2 mmol/L Previous: 5-20 mg/[id number] 17:46:00 Test Item Value Reference Range Interpretation [...] exclusion of thrombosis is within 95-100% range. [id number] 17:46:00 Test Item Value Reference Range Interpretation Comments FIBRINOGEN LEVEL (BEAKER) (test 201 mg/dl 225-434 L code = 658) PROTHROMBIN [id number] 17:45:00 Test Item Value Reference Range Interpretation Comments PROTIME (BEAKER) (test code = 24.4 seconds 11.7-14.7 H 759) INR (BEAKER) (test code = 370) 2.2 <=5.9 RECOMMENDED COUMADIN/WARFARIN INR THERAPY RANGESSTANDARD DOSE: 2.0 - 3.0 Includes: PROPHYLAXIS forvenous thrombosis, systemic embolization; TREATMENT for venous thrombosis and/or pulmonary embolus.HIGH RISK: Target INR is 2.5-3.5 for patients with mechanical heart valves.BLOOD GAS, [id number] 17:44:00 Test Item Value Reference Range Interpretation [...] code = 1819) 40.0 % SODIUM NA-STAT [id number] 17:44:00 Test Item Value Reference Range Interpretation Comments SODIUM (BEAKER) (test code = 381) 134 meq/L 135-148 L POTASSIUM-STAT [id number] 17:44:00 Test Item Value Reference Range Interpretation Comments POTASSIUM (BEAKER) (test code = 6.2 meq/L 3.6-5.5 HH 379) GLUCOSE-STAT [id number] 17:44:00 Test Item Value Reference Range Interpretation Comments GLUCOSE RANDOM (BEAKER) (test code 147 mg/dL 70-110 H = 652) HGB/HCT (H&H) - STAT [id number] 17:44:00 Test Item Value Reference Range Interpretation Comments HEMOGLOBIN (BEAKER) (test code = 9.9 g/dL 13.0-16.8 L 410) HEMATOCRIT (BEAKER) (test code = 29.0 % 40.0-50.0 L 411) CALCIUM, [id number] 17:41:00 Test Item Value Reference Range Interpretation Comments CALCIUM IONIZED (BEAKER) (test 1.03 mmol/L 1.12-1.27 L code = 698) PH, BLOOD (BEAKER) (test code = 7.52 1810) OXYGEN SATURATION, [id number] 17:39:00 Test Item Value Reference Range Interpretation Comments O2 SATURATION (MEASURED) (BEAKER) 84.5 % (test code = 1455) CBC W/PLT COUNT & AUTO [id number] 17:37:00 Test Item Value Reference Range Interpretation [...] % 0-1 PERCENT (BEAKER) (test code = 5383) [id number] 16:35:00 Test Item Value Reference Range Interpretation Comments ACTIVATED CLOTTING TIME 230 sec TEST ED AT [place] [address] (BEAKER) (test code = [place] [address]) [address] [id number] 16:35:00 Test Item Value Reference Range Interpretation Comments ACTIVATED CLOTTING TIME 191 sec TEST ED AT [facility] 6720 (BEAKER) (test code = [place] [address]) [address] BLOOD GAS, [id number] 16:20:00 Test Item Value Reference Range Interpretation [...] (test code = 1819) 100 BLOOD GAS, [id number] 16:19:00 Test Item Value Reference Range Interpretation [...] drawn from ECMO circuitLACTIC ACID, ARTERIAL, WHOLE [id number] 14:07:00 Test Item Value Reference Range Interpretation Comments LACTATE BLOOD 13.1 mmol/L 0.5-2.2 H Specimen sligh tly ARTERIAL (2) (BEAKER) hemoly zed (test code = 2874) Effective 01/04/2016: Units/Reference Range ChangeNew: 0.5-2.2 mmol/L Previous: 5-20 mg/dLPROTHROMBIN [id number] 14:01:00 Test Item Value Reference Range Interpretation Comments PROTIME (BEAKER) (test code = 20.9 seconds 11.7-14.7 H 759) INR (BEAKER) (test code = 370) 1.8 <=5.9 RECOMMENDED COUMADIN/WARFARIN INR THERAPY RANGESSTANDARD DOSE: 2.0 - 3.0 Includes: PROPHYLAXIS forvenous thrombosis, systemic embolization; TREATMENT for venous thrombosis and/or pulmonary embolus.HIGH RISK: Target INR is 2.5-3.5 for patients with mechanical heart valves.[id number] 14:01:00 Test Item Value Reference Range Interpretation Comments FIBRINOGEN LEVEL (BEAKER) (test 227 mg/dl 225-434 code = 658) PLATELET [id number] 13:54:00 Test Item Value Reference Range Interpretation Comments PLATELET COUNT (BEAKER) (test 115 K/CU MM 150-450 L code = 756) BLOOD GAS, [id number] 13:47:00 Test Item Value Reference Range Interpretation [...] (test code = 1819) 40.0 % GLUCOSE-STAT [id number] 13:47:00 Test Item Value Reference Range Interpretation Comments GLUCOSE RANDOM (BEAKER) (test code 134 mg/dL 70-110 H = 652) [id number] 12:33:00 Test Item Value Reference Range Interpretation Comments POTASSIUM (BEAKER) (test code = 5.6 meq/L 3.5-5.1 H 379) PRN - repeat glucose levels every 1 hour or as specified by insulin titration orders until glucose level is less than 450 mg/[id number] 12:33:00 Test Item Value Reference Range Interpretation Comments GLUCOSE RANDOM (BEAKER) (test code = 43 mg/dL 70-105 L 652) PRN - repeat glucose levels every 1 hour or as specified by insulin titration orders until glucose level is less than 450 mg/dLBASIC METABOLIC [id number] 11:05:00 Test Item Value Reference Range Interpretation [...] until glucose level is less than 450 mg/[id number] 11:05:00 Test Item Value Reference Range Interpretation Comments GLUCOSE RANDOM (BEAKER) (test code = 34 mg/dL 70-105 LL 652) [id number] 10:44:00 Test Item Value Reference Range Interpretation Comments POTASSIUM (BEAKER) (test code = 5.9 meq/L 3.5-5.1 H 379) HEPATIC FUNCTION [id number] 10:44:00 Test Item Value Reference Range Interpretation [...] Previous: 5-20 mg/dLCBC W/PLT COUNT & AUTO [id number] 10:23:00 Test Item Value Reference Range Interpretation [...] (BEAKER) (test code = 2801) BLOOD GAS, [id number] 10:20:00 Test Item Value Reference Range Interpretation [...] (BEAKER) (test code = 1819) 40.0 % [id number] 09:01:00 Test Item Value Reference Range Interpretation Comments POTASSIUM (BEAKER) (test code = 5.9 meq/L 3.5-5.1 H 379) PRN - repeat glucose levels every 1 hour or as specified by insulin titration orders until glucose level is less than 450 mg/[id number] 09:01:00 Test Item Value Reference Range Interpretation Comments MAGNESIUM (BEAKER) (test code = 1.7 mg/dL 1.6-2.6 627) PRN - repeat glucose levels every 1 hour or as specified by insulin titration orders until glucose level is less than 450 mg/[id number] 09:01:00 Test Item Value Reference Range Interpretation Comments PHOSPHORUS (BEAKER) (test code = 4.7 mg/dL 2.3-4.7 604) PRN - repeat glucose levels every 1 hour or as specified by insulin titration orders until glucose level is less than 450 mg/[id number] 09:01:00 Test Item Value Reference Range Interpretation Comments GLUCOSE RANDOM (BEAKER) (test code = 50 mg/dL 70-105 L 652) PRN - repeat glucose levels every 1 hour or as specified by insulin titration orders until glucose level is less than 450 mg/dLCALCIUM, [id number] 08:47:00 Test Item Value Reference Range Interpretation Comments CALCIUM IONIZED (BEAKER) (test 1.24 mmol/L 1.12-1.27 code = 698) PH, BLOOD (BEAKER) (test code = 7.31 1810) [id number] 08:45:00 Test Item Value Reference Range Interpretation Comments PARTIAL THROMBOPLASTIN TIME 53.7 seconds 22.5-36.0 H (BEAKER) (test code = 760) BLOOD GAS, [id number] 08:41:00 Test Item Value Reference Range Interpretation [...] (test code = 1819) 40.0 % PH, [id number] 08:41:00 Test Item Value Reference Range Interpretation Comments PH ARTERIAL (BEAKER) (test code = 383) 7.31 7.35-7.45 L RAD, CHEST, 1 VIEW, NON [id number] 07:31:00Reason for exam:->s/p cardiac surgeryShould this be [...] Xie MDReport VerifiedDate/Time: 01/11/2018 07:31:38 Reading Location: [facility] B1 C013X Ortho Consult Reading Room [...] code = 1819) 40.0 % BASIC METABOLIC [id number] 06:12:00 Test Item Value Reference Range Interpretation [...] NOT APPLICABLE FOR DIALYSIS PATIEN TS. POCT-GLUCOSE [id number] 05:58:00 Test Item Value Reference Range Interpretation Comments POC-GLUCOSE METER 121 mg/dL 70-110 H TESTED AT [facility] 6720 (BEAKER) (test code = [place] [address]) [address] POCT-GLUCOSE [id number] 05:58:00 Test Item Value Reference Range Interpretation Comments POC-GLUCOSE METER 66 mg/dL 70-110 L Will Repea t Test/TESTED (BEAKER) (test code = AT [facility] [address] [place] [address]) [facility] [address] [id number] 05:51:00 Test Item Value Reference Range Interpretation Comments PHOSPHORUS (BEAKER) (test code = 3.5 mg/dL 2.3-4.7 604) [id number] 05:51:00 Test Item Value Reference Range Interpretation Comments MAGNESIUM (BEAKER) (test code = 1.9 mg/dL 1.6-2.6 627) BLOOD GAS, [id number] 05:47:00 Test Item Value Reference Range Interpretation [...] (test code = 1819) 40.0 % POCT-GLUCOSE [id number] 05:27:00 Test Item Value Reference Range Interpretation Comments POC-GLUCOSE METER 112 mg/dL 70-110 H TESTED AT [place] [address] [facility] (test code = [facility] 1538) [address] POCT-GLUCOSE [id number] 05:27:00 Test Item Value Reference Range Interpretation Comments POC-GLUCOSE METER 106 mg/dL 70-110 TESTED AT [place] [address] ([facility]) (test code = [place] [facility] 1538) [address] POCT-GLUCOSE [id number] 05:26:00 Test Item Value Reference Range Interpretation Comments POC-GLUCOSE METER 66 mg/dL 70-110 L TESTED AT [place] [address] ([facility] (test code = [facility] [address] 1538) LACTIC ACID, ARTERIAL, WHOLE [id number] 04:59:00 Test Item Value Reference Range Interpretation Comments LACTATE BLOOD 12.2 mmol/L 0.5-2.2 H Specimen sligh tly ARTERIAL (2) (BEAKER) hemoly zed (test code = 2874) Effective 01/04/2016: Units/Reference Range ChangeNew: 0.5-2.2 mmol/L Previous: 5-20 mg/dLCALCIUM, [id number] 04:57:00 Test Item Value Reference Range Interpretation Comments CALCIUM IONIZED (BEAKER) (test 1.33 mmol/L 1.12-1.27 H code = 698) PH, BLOOD (BEAKER) (test code = 7.30 1810) BLOOD GAS, [id number] 04:57:00 Test Item Value Reference Range Interpretation [...] code = 1819) 45.0 % OXYGEN SATURATION, [id number] 04:56:00 Test Item Value Reference Range Interpretation Comments O2 SATURATION (MEASURED) (BEAKER) 83.2 % (test code = 1455) CBC W/PLT COUNT & AUTO [id number] 04:56:00 Test Item Value Reference Range Interpretation [...] PERCENT (BEAKER) (test code = 2801) CALCIUM, [id number] 03:38:00 Test Item Value Reference Range Interpretation Comments CALCIUM IONIZED (BEAKER) (test 1.32 mmol/L 1.12-1.27 H code = 698) PH, BLOOD (BEAKER) (test code = 7.29 1810) BLOOD GAS, [id number] 03:36:00 Test Item Value Reference Range Interpretation [...] 1819) 50.0 % HGB/HCT (H&H) - STAT [id number] 03:36:00 Test Item Value Reference Range Interpretation Comments HEMOGLOBIN (BEAKER) (test code = 12.5 g/dL 13.0-16.8 L 410) HEMATOCRIT (BEAKER) (test code = 37.0 % 40.0-50.0 L 411) OXYGEN SATURATION, [id number] 03:35:00 Test Item Value Reference Range Interpretation Comments O2 SATURATION (MEASURED) (BEAKER) 80.3 % (test code = 1455) GLUCOSE-STAT [id number] 03:34:00 Test Item Value Reference Range Interpretation Comments GLUCOSE RANDOM (BEAKER) (test code = 91 mg/dL 70-110 652) SODIUM NA-STAT [id number] 03:34:00 Test Item Value Reference Range Interpretation Comments SODIUM (BEAKER) (test code = 381) 137 meq/L 135-148 POTASSIUM-STAT [id number] 03:34:00 Test Item Value Reference Range Interpretation Comments POTASSIUM (BEAKER) (test code = 4.6 meq/L 3.6-5.5 379) BLOOD GAS, [id number] 03:01:00 Test Item Value Reference Range Interpretation [...] 1819) 50.0 % HGB/HCT (H&H) - STAT [id number] 03:01:00 Test Item Value Reference Range Interpretation Comments HEMOGLOBIN (BEAKER) (test code = 12.0 g/dL 13.0-16.8 L 410) HEMATOCRIT (BEAKER) (test code = 35.0 % 40.0-50.0 L 411) POTASSIUM-STAT [id number] 03:00:00 Test Item Value Reference Range Interpretation Comments POTASSIUM (BEAKER) (test code = 5.0 meq/L 3.6-5.5 379) GLUCOSE-STAT [id number] 03:00:00 Test Item Value Reference Range Interpretation Comments GLUCOSE RANDOM (BEAKER) (test code 102 mg/dL 70-110 = 652) SODIUM NA-STAT [id number] 03:00:00 Test Item Value Reference Range Interpretation Comments SODIUM (BEAKER) (test code = 381) 140 meq/L 135-148 LACTIC ACID, ARTERIAL, WHOLE [id number] 01:53:00 Test Item Value Reference Range Interpretation Comments LACTATE BLOOD 9.4 mmol/L 0.5-2.2 H Specimen sligh tly ARTERIAL (2) (BEAKER) hemoly zed (test code = 2874) Effective 01/04/2016: Units/Reference Range ChangeNew: 0.5-2.2 mmol/L Previous: 5-20 mg/dLGLUCOSE-STAT [id number] 01:27:00 Test Item Value Reference Range Interpretation Comments GLUCOSE RANDOM (BEAKER) (test code = 99 mg/dL 70-110 652) BLOOD GAS, [id number] 01:27:00 Test Item Value Reference Range Interpretation [...] 1819) 100.0 % HGB/HCT (H&H) - STAT [id number] 01:27:00 Test Item Value Reference Range Interpretation Comments HEMOGLOBIN (BEAKER) (test code = 12.7 g/dL 13.0-16.8 L 410) HEMATOCRIT (BEAKER) (test code = 37.0 % 40.0-50.0 L 411) SODIUM NA-STAT [id number] 01:26:00 Test Item Value Reference Range Interpretation Comments SODIUM (BEAKER) (test code = 381) 141 meq/L 135-148 POTASSIUM-STAT [id number] 01:26:00 Test Item Value Reference Range Interpretation Comments POTASSIUM (BEAKER) (test code = 3.6 meq/L 3.6-5.5 379) [id number] 00:38:00 Test Item Value Reference Range Interpretation Comments PARTIAL THROMBOPLASTIN TIME 47.4 seconds 22.5-36.0 H (BEAKER) (test code = 760) [id number] 00:35:00 Test Item Value Reference Range Interpretation Comments POTASSIUM (BEAKER) 3.5 meq/L 3.5-5.1 Specimen slightly (test code = 379) hemolyzed CALCIUM, [id number] 00:25:00 Test Item Value Reference Range Interpretation [...] = 1414) RAD, CHEST, 1 VIEW, NON [id number] 22:36:00Reason for exam:->s/p BronchoscopyFINAL REPORT CLINICAL INDICATION: Post bronchoscopy Comparison: Same date or9482 hours There is improved aeration of the right upper lobe. No pneumothorax is present. Hazy opacity in the right upper lobe and in the retrocardiac lower lungs may reflect atelectasis but pneumonitis should be excluded clinically. The cardiomediastinal contours are stable. Support lines are stable. Signed: Kellen Parra MDReport Verified Date/Time: 01/10/2018 22:36:29 Reading Location: [address] Reading Room C METABOLIC [id number] 22:01:00 Test Item Value Reference Range Interpretation [...] S NOT APPLICABLE FOR DIALYSIS PATIEN TS. [id number] 22:00:00 Test Item Value Reference Range Interpretation Comments MAGNESIUM (BEAKER) 2.4 mg/dL 1.6-2.6 Specimen slightly (test code = 627) hemolyzed [id number] 22:00:00 Test Item Value Reference Range Interpretation Comments PHOSPHORUS (BEAKER) 3.2 mg/dL 2.3-4.7 Specimen slightly (test code = 604) hemolyzed LACTIC ACID, ARTERIAL, WHOLE [id number] 21:57:00 Test Item Value Reference Range Interpretation Comments LACTATE BLOOD 10.2 mmol/L 0.5-2.2 H Specimen sligh tly ARTERIAL (2) (BEAKER) hemoly zed (test code = 2874) Effective 01/04/2016: Units/Reference Range ChangeNew: 0.5-2.2 mmol/L Previous: 5-20 mg/dLCBC W/PLT COUNT & AUTO [id number] 21:51:00 Test Item Value Reference Range Interpretation [...] 0-1 PERCENT (BEAKER) (test code = 2801) [id number] 21:49:00 Test Item Value Reference Range Interpretation Comments PARTIAL THROMBOPLASTIN TIME 41.2 seconds 22.5-36.0 H (BEAKER) (test code = 760) PROTHROMBIN [id number] 21:48:00 Test Item Value Reference Range Interpretation Comments PROTIME (BEAKER) (test code = 19.8 seconds 11.7-14.7 H 759) INR (BEAKER) (test code = 370) 1.7 <=5.9 RECOMMENDED COUMADIN/WARFARIN INR THERAPY RANGESSTANDARD DOSE: 2.0 - 3.0 Includes: PROPHYLAXIS forvenous thrombosis, systemic embolization; TREATMENT for venous thrombosis and/or pulmonary embolus.HIGH RISK: Target INR is 2.5-3.5 for patients with mechanical heart valves.[id number] 21:48:00 Test Item Value Reference Range Interpretation Comments FIBRINOGEN LEVEL (BEAKER) (test 221 mg/dl 225-434 L code = 658) CALCIUM, [id number] 21:33:00 Test Item Value Reference Range Interpretation Comments CALCIUM IONIZED (BEAKER) (test 1.54 mmol/L 1.12-1.27 H code = 698) PH, BLOOD (BEAKER) (test code = 7.33 1810) OXYGEN SATURATION, [id number] 21:33:00 Test Item Value Reference Range Interpretation Comments O2 SATURATION (MEASURED) (BEAKER) 67.1 % (test code = 1455) GLUCOSE-STAT [id number] 21:32:00 Test Item Value Reference Range Interpretation Comments GLUCOSE RANDOM (BEAKER) (test code = 98 mg/dL 70-110 652) SODIUM NA-STAT [id number] 21:32:00 Test Item Value Reference Range Interpretation Comments SODIUM (BEAKER) (test code = 381) 139 meq/L 135-148 POTASSIUM-STAT [id number] 21:32:00 Test Item Value Reference Range Interpretation Comments POTASSIUM (BEAKER) (test code = 3.6 meq/L 3.6-5.5 379) BLOOD GAS, [id number] 21:32:00 Test Item Value Reference Range Interpretation [...] 1819) 60.0 % HGB/HCT (H&H) - STAT [id number] 21:32:00 Test Item Value Reference Range Interpretation Comments HEMOGLOBIN (BEAKER) (test code = 8.2 g/dL 13.0-16.8 L 410) HEMATOCRIT (BEAKER) (test code = 24.0 % 40.0-50.0 L 411) RAD, CHEST, 1 VIEW, NON [id number] 21:32:00Reason for exam:->s/p cardiac surgeryShould this be [...] the level of the clavicles. Right IJ Zuni-Moni catheter terminatesin the distal right pulmonary artery. The soft tissues and osseous structures are intact. IMPRESSION: Postoperative changes with right upper lobe collapse, likely secondary to mucous plugging. Supporting lines and tubes as described above. Note position of the Zuni-Moni catheter. Signed: Moiz Musaort Verified Date/Time: 01/10/2018 21:32:31 Reading Location: [facility] B1 C013W Consult Reading Room THROMBOELASTOGRAPH [...] 55.0-65.0 L (test code = 1413) CALCIUM, [id number] 20:42:00 Test Item Value Reference Range Interpretation Comments CALCIUM IONIZED (BEAKER) (test 1.41 mmol/L 1.12-1.27 H code = 698) PH, BLOOD (BEAKER) (test code = 7.41 1810) SODIUM NA-STAT [id number] 20:41:00 Test Item Value Reference Range Interpretation Comments SODIUM (BEAKER) (test code = 381) 138 meq/L 135-148 POTASSIUM-STAT [id number] 20:41:00 Test Item Value Reference Range Interpretation Comments POTASSIUM (BEAKER) (test code = 3.7 meq/L 3.6-5.5 379) BLOOD GAS, [id number] 20:41:00 Test Item Value Reference Range Interpretation [...] (test code = 1819) 100.0 % GLUCOSE-STAT [id number] 20:41:00 Test Item Value Reference Range Interpretation Comments GLUCOSE RANDOM (BEAKER) (test code 120 mg/dL 70-110 H = 652) HGB/HCT (H&H) - STAT [id number] 20:41:00 Test Item Value Reference Range Interpretation Comments HEMOGLOBIN ([facility]) (test code = 7.8 g/dL 13.0-16.8 L 410) HEMATOCRIT ([facility]) (test code = 23.0 % 40.0-50.0 L 411) [id number] 20:23:00 Test Item Value Reference Range Interpretation Comments FIBRINOGEN LEVEL ([facility]) (test 239 mg/dl 225-434 code = 658) [id number] 20:23:00 Test Item Value Reference Range Interpretation Comments PARTIAL THROMBOPLASTIN TIME 38.6 seconds 22.5-36.0 H ([facility]) (test code = 760) PROTHROMBIN [id number] 20:22:00 Test Item Value Reference Range Interpretation Comments PROTIME ([facility]) (test code = 21.6 seconds 11.7-14.7 H 759) INR ([facility]) (test code = 370) 1.9 <=5.9 RECOMMENDED COUMADIN/WARFARIN INR THERAPY RANGESSTANDARD DOSE: 2.0 - 3.0 Includes: PROPHYLAXIS forvenous thrombosis, systemic embolization; TREATMENT for venous thrombosis and/or pulmonary embolus.HIGH RISK: Target INR is 2.5-3.5 for patients with mechanical heart valves.[id number] 20:16:00 Test Item Value Reference Range Interpretation Comments ACTIVATED CLOTTING TIME 114 sec TEST ED AT [place] [address] ([facility]) (test code = [place] [facility] 441) [address] [id number] 20:16:00 Test Item Value Reference Range Interpretation Comments ACTIVATED CLOTTING TIME 499 sec TEST ED AT [place] [address] ([facility]) (test code = [place] [facility] 441) [id number] 20:16:00 Test Item Value Reference Range Interpretation Comments ACTIVATED CLOTTING TIME 483 sec TEST ED AT [place] [address] ([facility]) (test code = [place] [facility] 441) [address] [id number] 20:16:00 Test Item Value Reference Range Interpretation Comments ACTIVATED CLOTTING TIME 538 sec TEST ED AT [place] [address] ([facility]) (test code = [place] [address]) [address] [id number] 20:16:00 Test Item Value Reference Range Interpretation Comments ACTIVATED CLOTTING TIME 615 sec TEST ED AT [place] [address] ([facility]) (test code = [place] [address]) [address] [id number] 20:16:00 Test Item Value Reference Range Interpretation Comments ACTIVATED CLOTTING TIME 692 sec TEST ED AT [place] [address] ([facility]) (test code = [place] [address]) [address] [id number] 20:16:00 Test Item Value Reference Range Interpretation Comments ACTIVATED CLOTTING TIME 428 sec TEST ED AT [place] [address] ([facility]) (test code = [place] 441) [address] [id number] 20:16:00 Test Item Value Reference Range Interpretation Comments ACTIVATED CLOTTING TIME 373 sec TEST ED AT [place] [address] ([facility]) (test code = [place] 441) [address] [id number] 20:16:00 Test Item Value Reference Range Interpretation Comments ACTIVATED CLOTTING TIME 455 sec TEST ED AT [place] [address] ([facility]) (test code = [place] 441) [address] [id number] 20:16:00 Test Item Value Reference Range Interpretation Comments ACTIVATED CLOTTING TIME 494 sec TEST ED AT [place] [address] ([facility]) (test code = [place] 441) [address] [id number] 20:16:00 Test Item Value Reference Range Interpretation Comments ACTIVATED CLOTTING TIME 527 sec TEST ED AT [place] [address] ([facility]) (test code = [place] [address]) [address] [id number] 20:16:00 Test Item Value Reference Range Interpretation Comments ACTIVATED CLOTTING TIME 610 sec TEST ED AT [place] [address] ([facility]) (test code = [place] 441) [address] [id number] 20:16:00 Test Item Value Reference Range Interpretation Comments ACTIVATED CLOTTING TIME 576 sec TEST ED AT [place] [address] ([facility]) (test code = [place] 441) [address] [id number] 20:16:00 Test Item Value Reference Range Interpretation Comments ACTIVATED CLOTTING TIME 384 sec TEST ED AT [place] [address] ([facility]) (test code = [place] 441) [address] PLATELET [id number] 20:08:00 Test Item Value Reference Range Interpretation [...] 0.0-5.0 (BEAKER) (test code = 1414) CALCIUM, [id number] 19:59:00 Test Item Value Reference Range Interpretation Comments CALCIUM IONIZED (BEAKER) (test 1.39 mmol/L 1.12-1.27 H code = 698) PH, BLOOD (BEAKER) (test code = 7.37 1810) BLOOD GAS, [id number] 19:58:00 Test Item Value Reference Range Interpretation [...] (test code = 1819) 100.0 % GLUCOSE-STAT [id number] 19:58:00 Test Item Value Reference Range Interpretation Comments GLUCOSE RANDOM (BEAKER) (test code 143 mg/dL 70-110 H = 652) HGB/HCT (H&H) - STAT [id number] 19:58:00 Test Item Value Reference Range Interpretation Comments HEMOGLOBIN (BEAKER) (test code = 8.7 g/dL 13.0-16.8 L 410) HEMATOCRIT (BEAKER) (test code = 26.0 % 40.0-50.0 L 411) SODIUM NA-STAT [id number] 19:57:00 Test Item Value Reference Range Interpretation Comments SODIUM (BEAKER) (test code = 381) 140 meq/L 135-148 POTASSIUM-STAT [id number] 19:57:00 Test Item Value Reference Range Interpretation Comments POTASSIUM (BEAKER) (test code = 3.9 meq/L 3.6-5.5 379) [id number] 19:29:00 Test Item Value Reference Range Interpretation Comments PARTIAL THROMBOPLASTIN TIME > seconds 22.5-36.0 HH (BEAKER) (test code = 760) [id number] 19:16:00 Test Item Value Reference Range Interpretation Comments FIBRINOGEN LEVEL (BEAKER) (test 271 mg/dl 225-434 code = 658) PROTHROMBIN [id number] 19:15:00 Test Item Value Reference Range Interpretation Comments PROTIME (BEAKER) (test code = 21.3 seconds 11.7-14.7 H 759) INR (BEAKER) (test code = 370) 1.8 <=5.9 RECOMMENDED COUMADIN/WARFARIN INR THERAPY RANGESSTANDARD DOSE: 2.0 - 3.0 Includes: PROPHYLAXIS forvenous thrombosis, systemic embolization; TREATMENT for venous thrombosis and/or pulmonary embolus.HIGH RISK: Target INR is 2.5-3.5 for patients with mechanical heart valves.PLATELET [id number] 19:06:00 Test Item Value Reference Range Interpretation Comments PLATELET COUNT (BEAKER) (test code 54 K/CU MM 150-450 L = 756) BLOOD GAS, [id number] 18:49:00 Test Item Value Reference Range Interpretation [...] 1819) 100.0 % HGB/HCT (H&H) - STAT [id number] 18:44:00 Test Item Value Reference Range Interpretation Comments HEMOGLOBIN (BEAKER) (test code = 10.1 g/dL 13.0-16.8 L 410) HEMATOCRIT (BEAKER) (test code = 30.0 % 40.0-50.0 L 411) SODIUM NA-STAT [id number] 18:43:00 Test Item Value Reference Range Interpretation Comments SODIUM (BEAKER) (test code = 381) 137 meq/L 135-148 POTASSIUM-STAT [id number] 18:43:00 Test Item Value Reference Range Interpretation Comments POTASSIUM (BEAKER) (test code = 5.0 meq/L 3.6-5.5 379) GLUCOSE-STAT [id number] 18:43:00 Test Item Value Reference Range Interpretation Comments GLUCOSE RANDOM (BEAKER) (test code 187 mg/dL 70-110 H = 652) SODIUM NA-STAT [id number] 18:22:00 Test Item Value Reference Range Interpretation Comments SODIUM (BEAKER) (test code = 381) 140 meq/L 135-148 POTASSIUM-STAT [id number] 18:22:00 Test Item Value Reference Range Interpretation Comments POTASSIUM (BEAKER) (test code = 4.7 meq/L 3.6-5.5 379) BLOOD GAS, [id number] 18:22:00 Test Item Value Reference Range Interpretation [...] (test code = 1819) 60.0 % GLUCOSE-STAT [id number] 18:22:00 Test Item Value Reference Range Interpretation Comments GLUCOSE RANDOM (BEAKER) (test code 209 mg/dL 70-110 H = 652) HGB/HCT (H&H) - STAT [id number] 18:22:00 Test Item Value Reference Range Interpretation Comments HEMOGLOBIN (BEAKER) (test code = 10.2 g/dL 13.0-16.8 L 410) HEMATOCRIT (BEAKER) (test code = 30.0 % 40.0-50.0 L 411) BLOOD GAS, [id number] 17:57:00 Test Item Value Reference Range Interpretation [...] (test code = 1819) 65.0 % GLUCOSE-STAT [id number] 17:57:00 Test Item Value Reference Range Interpretation Comments GLUCOSE RANDOM (BEAKER) (test code 198 mg/dL 70-110 H = 652) HGB/HCT (H&H) - STAT [id number] 17:57:00 Test Item Value Reference Range Interpretation Comments HEMOGLOBIN (BEAKER) (test code = 10.3 g/dL 13.0-16.8 L 410) HEMATOCRIT (BEAKER) (test code = 30.0 % 40.0-50.0 L 411) SODIUM NA-STAT [id number] 17:56:00 Test Item Value Reference Range Interpretation Comments SODIUM (BEAKER) (test code = 381) 138 meq/L 135-148 POTASSIUM-STAT [id number] 17:56:00 Test Item Value Reference Range Interpretation Comments POTASSIUM (BEAKER) (test code = 4.7 meq/L 3.6-5.5 379) BLOOD GAS, [id number] 17:28:00 Test Item Value Reference Range Interpretation [...] (test code = 1819) 65.0 % GLUCOSE-STAT [id number] 17:28:00 Test Item Value Reference Range Interpretation Comments GLUCOSE RANDOM (BEAKER) (test code 223 mg/dL 70-110 H = 652) HGB/HCT (H&H) - STAT [id number] 17:28:00 Test Item Value Reference Range Interpretation Comments HEMOGLOBIN (BEAKER) (test code = 10.1 g/dL 13.0-16.8 L 410) HEMATOCRIT (BEAKER) (test code = 30.0 % 40.0-50.0 L 411) SODIUM NA-STAT [id number] 17:27:00 Test Item Value Reference Range Interpretation Comments SODIUM (BEAKER) (test code = 381) 140 meq/L 135-148 POTASSIUM-STAT [id number] 17:27:00 Test Item Value Reference Range Interpretation [...] code = 1414) HGB/HCT (H&H) - STAT [id number] 17:01:00 Test Item Value Reference Range Interpretation Comments HEMOGLOBIN (BEAKER) (test code = 10.1 g/dL 13.0-16.8 L 410) HEMATOCRIT (BEAKER) (test code = 30.0 % 40.0-50.0 L 411) BLOOD GAS, [id number] 17:00:00 Test Item Value Reference Range Interpretation [...] (test code = 1819) 65.0 % GLUCOSE-STAT [id number] 17:00:00 Test Item Value Reference Range Interpretation Comments GLUCOSE RANDOM (BEAKER) (test code 243 mg/dL 70-110 H = 652) SODIUM NA-STAT [id number] 16:59:00 Test Item Value Reference Range Interpretation Comments SODIUM (BEAKER) (test code = 381) 139 meq/L 135-148 POTASSIUM-STAT [id number] 16:59:00 Test Item Value Reference Range Interpretation Comments POTASSIUM (BEAKER) (test code = 4.6 meq/L 3.6-5.5 379) [id number] 16:47:00 Test Item Value Reference Range Interpretation Comments PARTIAL THROMBOPLASTIN TIME > seconds 22.5-36.0 HH (BEAKER) (test code = 760) BLOOD GAS, [id number] 16:18:00 Test Item Value Reference Range Interpretation [...] (test code = 1819) 65.0 % GLUCOSE-STAT [id number] 16:18:00 Test Item Value Reference Range Interpretation Comments GLUCOSE RANDOM (BEAKER) (test code 279 mg/dL 70-110 H = 652) HGB/HCT (H&H) - STAT [id number] 16:18:00 Test Item Value Reference Range Interpretation Comments HEMOGLOBIN (BEAKER) (test code = 7.0 g/dL 13.0-16.8 L 410) HEMATOCRIT (BEAKER) (test code = 21.0 % 40.0-50.0 L 411) SODIUM NA-STAT [id number] 16:17:00 Test Item Value Reference Range Interpretation Comments SODIUM (BEAKER) (test code = 381) 137 meq/L 135-148 POTASSIUM-STAT [id number] 16:17:00 Test Item Value Reference Range Interpretation Comments POTASSIUM (BEAKER) (test code = 4.6 meq/L 3.6-5.5 379) [id number] 16:15:00 Test Item Value Reference Range Interpretation Comments FIBRINOGEN LEVEL (BEAKER) (test 255 mg/dl 225-434 code = 658) PROTHROMBIN [id number] 16:14:00 Test Item Value Reference Range Interpretation Comments PROTIME (BEAKER) (test code = 20.2 seconds 11.7-14.7 H 759) INR (BEAKER) (test code = 370) 1.7 <=5.9 RECOMMENDED COUMADIN/WARFARIN INR THERAPY RANGESSTANDARD DOSE: 2.0 - 3.0 Includes: PROPHYLAXIS forvenous thrombosis, systemic embolization; TREATMENT for venous thrombosis and/or pulmonary embolus.HIGH RISK: Target INR is 2.5-3.5 for patients with mechanical heart valves.PLATELET [id number] 16:02:00 Test Item Value Reference Range Interpretation Comments PLATELET COUNT (BEAKER) (test code 57 K/CU MM 150-450 L = 756) CALCIUM, [id number] 15:51:00 Test Item Value Reference Range Interpretation Comments CALCIUM IONIZED (BEAKER) (test 0.82 mmol/L 1.12-1.27 L code = 698) PH, BLOOD (BEAKER) (test code = 7.45 1810) BLOOD GAS, [id number] 15:51:00 Test Item Value Reference Range Interpretation [...] (test code = 1819) 100.0 % GLUCOSE-STAT [id number] 15:51:00 Test Item Value Reference Range Interpretation Comments GLUCOSE RANDOM (BEAKER) (test code 190 mg/dL 70-110 H = 652) HGB/HCT (H&H) - STAT [id number] 15:51:00 Test Item Value Reference Range Interpretation Comments HEMOGLOBIN (BEAKER) (test code = 7.6 g/dL 13.0-16.8 L 410) HEMATOCRIT (BEAKER) (test code = 22.0 % 40.0-50.0 L 411) POTASSIUM-STAT [id number] 15:51:00 Test Item Value Reference Range Interpretation Comments POTASSIUM (BEAKER) (test code = 5.6 meq/L 3.6-5.5 H 379) SODIUM NA-STAT [id number] 15:50:00 Test Item Value Reference Range Interpretation Comments SODIUM (BEAKER) (test code = 381) 139 meq/L 135-148 BLOOD GAS, [id number] 15:43:00 Test Item Value Reference Range Interpretation [...] (test code = 1819) 75.0 % GLUCOSE-STAT [id number] 15:43:00 Test Item Value Reference Range Interpretation Comments GLUCOSE RANDOM (BEAKER) (test code 189 mg/dL 70-110 H = 652) HGB/HCT (H&H) - STAT [id number] 15:43:00 Test Item Value Reference Range Interpretation Comments HEMOGLOBIN (BEAKER) (test code = 8.0 g/dL 13.0-16.8 L 410) HEMATOCRIT (BEAKER) (test code = 24.0 % 40.0-50.0 L 411) POTASSIUM-STAT [id number] 15:43:00 Test Item Value Reference Range Interpretation Comments POTASSIUM (BEAKER) (test code = 5.7 meq/L 3.6-5.5 H 379) SODIUM NA-STAT [id number] 15:42:00 Test Item Value Reference Range Interpretation Comments SODIUM (BEAKER) (test code = 381) 136 meq/L 135-148 SODIUM NA-STAT [id number] 15:06:00 Test Item Value Reference Range Interpretation Comments SODIUM (BEAKER) (test code = 381) 139 meq/L 135-148 BLOOD GAS, [id number] 15:06:00 Test Item Value Reference Range Interpretation [...] (test code = 1819) 60.0 % POTASSIUM-STAT [id number] 15:06:00 Test Item Value Reference Range Interpretation Comments POTASSIUM (BEAKER) (test code = 5.8 meq/L 3.6-5.5 H 379) GLUCOSE-STAT [id number] 15:06:00 Test Item Value Reference Range Interpretation Comments GLUCOSE RANDOM (BEAKER) (test code 192 mg/dL 70-110 H = 652) HGB/HCT (H&H) - STAT [id number] 15:06:00 Test Item Value Reference Range Interpretation Comments HEMOGLOBIN (BEAKER) (test code = 8.2 g/dL 13.0-16.8 L 410) HEMATOCRIT (BEAKER) (test code = 24.0 % 40.0-50.0 L 411) POTASSIUM-STAT [id number] 14:41:00 Test Item Value Reference Range Interpretation Comments POTASSIUM (BEAKER) (test code = 5.2 meq/L 3.6-5.5 379) BLOOD GAS, [id number] 14:41:00 Test Item Value Reference Range Interpretation [...] code = 1819) 60.0 % SODIUM NA-STAT [id number] 14:41:00 Test Item Value Reference Range Interpretation Comments SODIUM (BEAKER) (test code = 381) 134 meq/L 135-148 L GLUCOSE-STAT [id number] 14:41:00 Test Item Value Reference Range Interpretation Comments GLUCOSE RANDOM (BEAKER) (test code 195 mg/dL 70-110 H = 652) HGB/HCT (H&H) - STAT [id number] 14:41:00 Test Item Value Reference Range Interpretation Comments HEMOGLOBIN (BEAKER) (test code = 8.2 g/dL 13.0-16.8 L 410) HEMATOCRIT (BEAKER) (test code = 24.0 % 40.0-50.0 L 411) BLOOD GAS, [id number] 14:10:00 Test Item Value Reference Range Interpretation [...] (test code = 1819) 60.0 % GLUCOSE-STAT [id number] 14:10:00 Test Item Value Reference Range Interpretation Comments GLUCOSE RANDOM (BEAKER) (test code 177 mg/dL 70-110 H = 652) HGB/HCT (H&H) - STAT [id number] 14:10:00 Test Item Value Reference Range Interpretation Comments HEMOGLOBIN (BEAKER) (test code = 8.5 g/dL 13.0-16.8 L 410) HEMATOCRIT (BEAKER) (test code = 25.0 % 40.0-50.0 L 411) SODIUM NA-STAT [id number] 14:09:00 Test Item Value Reference Range Interpretation Comments SODIUM (BEAKER) (test code = 381) 136 meq/L 135-148 POTASSIUM-STAT [id number] 14:09:00 Test Item Value Reference Range Interpretation Comments POTASSIUM (BEAKER) (test code = 5.0 meq/L 3.6-5.5 379) SODIUM NA-STAT [id number] 13:39:00 Test Item Value Reference Range Interpretation Comments SODIUM (BEAKER) (test code = 381) 136 meq/L 135-148 POTASSIUM-STAT [id number] 13:39:00 Test Item Value Reference Range Interpretation Comments POTASSIUM (BEAKER) (test code = 5.0 meq/L 3.6-5.5 379) BLOOD GAS, [id number] 13:39:00 Test Item Value Reference Range Interpretation [...] (test code = 1819) 60.0 % GLUCOSE-STAT [id number] 13:39:00 Test Item Value Reference Range Interpretation Comments GLUCOSE RANDOM (BEAKER) (test code 179 mg/dL 70-110 H = 652) HGB/HCT (H&H) - STAT [id number] 13:39:00 Test Item Value Reference Range Interpretation Comments HEMOGLOBIN (BEAKER) (test code = 8.1 g/dL 13.0-16.8 L 410) HEMATOCRIT (BEAKER) (test code = 24.0 % 40.0-50.0 L 411) CALCIUM, [id number] 12:31:00 Test Item Value Reference Range Interpretation Comments CALCIUM IONIZED (BEAKER) (test 1.09 mmol/L 1.12-1.27 L code = 698) PH, BLOOD (BEAKER) (test code = 7.45 1810) GLUCOSE-STAT [id number] 12:30:00 Test Item Value Reference Range Interpretation Comments GLUCOSE RANDOM (BEAKER) (test code = 93 mg/dL 70-110 652) SODIUM NA-STAT [id number] 12:30:00 Test Item Value Reference Range Interpretation Comments SODIUM (BEAKER) (test code = 381) 140 meq/L 135-148 POTASSIUM-STAT [id number] 12:30:00 Test Item Value Reference Range Interpretation Comments POTASSIUM (BEAKER) (test code = 3.9 meq/L 3.6-5.5 379) BLOOD GAS, [id number] 12:30:00 Test Item Value Reference Range Interpretation [...] 1819) 100.0 % HGB/HCT (H&H) - STAT [id number] 12:30:00 Test Item Value Reference Range Interpretation Comments HEMOGLOBIN (BEAKER) (test code = 9.3 g/dL 13.0-16.8 L 410) HEMATOCRIT (BEAKER) (test code = 27.0 % 40.0-50.0 L 411) HEMOGLOBIN [id number] 10:02:00 Test Item Value Reference Range Interpretation Comments HEMOGLOBIN A1C (BEAKER) (test code = 4.4 % 4.3-6.1 368) POCT-GLUCOSE [id number] 09:52:00 Test Item Value Reference Range Interpretation Comments POC-GLUCOSE METER 115 mg/dL 70-110 H TESTED AT [facility] [address] (BEAKER) (test code = [place] 1538) [address] PROTHROMBIN [id number] 02:41:00 Test Item Value Reference Range Interpretation Comments PROTIME (BEAKER) (test code = 14.9 seconds 11.7-14.7 H 759) INR (BEAKER) (test code = 370) 1.2 <=5.9 RECOMMENDED COUMADIN/WARFARIN INR THERAPY RANGESSTANDARD DOSE: 2.0 - 3.0 Includes: PROPHYLAXIS forvenous thrombosis, systemic embolization; TREATMENT for venous thrombosis and/or pulmonary embolus.HIGH RISK: Target INR is 2.5-3.5 for patients with mechanical heart valves.BASIC METABOLIC [id number] 00:29:00 Test Item Value Reference Range Interpretation [...] S NOT APPLICABLE FOR DIALYSIS PATIEN TS. [id number] 00:22:00 Test Item Value Reference Range Interpretation Comments MAGNESIUM (BEAKER) 2.5 mg/dL 1.6-2.6 Specimen slightly (test code = 627) hemolyzed [id number] 00:14:00 Test Item Value Reference Range Interpretation Comments PARTIAL THROMBOPLASTIN TIME 38.6 seconds 22.5-36.0 H (BEAKER) (test code = 760) CBC W/PLT COUNT & AUTO [id number] 00:07:00 Test Item Value Reference Range Interpretation [...] 0-1 PERCENT (BEAKER) (test code = 2801) [id number] 17:03:00 Test Item Value Reference Range Interpretation Comments THYROID STIMULATING HORMONE 1.30 uIU/mL 0.35-4.94 (BEAKER) (test code = 772) HEPATIC FUNCTION [id number] 16:43:00 Test Item Value Reference Range Interpretation [...] 69 U/L 6-55 H 347) BASIC METABOLIC [id number] 15:47:00 Test Item Value Reference Range Interpretation [...] S NOT APPLICABLE FOR DIALYSIS PATIEN TS. [id number] 14:57:00 Test Item Value Reference Range Interpretation Comments PARTIAL THROMBOPLASTIN TIME 82.9 seconds 22.5-36.0 H (BEAKER) (test code = 760) CBC W/PLT COUNT & AUTO [id number] 14:48:00 Test Item Value Reference Range Interpretation [...] PERCENT (BEAKER) (test code = 2801) POCT-GLUCOSE [id number] 11:13:00 Test Item Value Reference Range Interpretation Comments POC-GLUCOSE METER 207 mg/dL 70-110 H TESTED AT [facility] [address] [facility] (test code = [place] 1538) [address] POCT-GLUCOSE [id number] 08:08:00 Test Item Value Reference Range Interpretation Comments POC-GLUCOSE METER 124 mg/dL 70-110 H TESTED AT [facility] [address] (BEAKER) (test code = [place] 1538) [address] [id number] 06:51:00 Test Item Value Reference Range Interpretation Comments PARTIAL THROMBOPLASTIN TIME 54.6 seconds 22.5-36.0 H (BEAKER) (test code = 760) HEPATITIS B SURFACE [id number] 00:28:00 Test Item Value Reference Range Interpretation Comments HEPATITIS B SURFACE ANTIGEN (2) Nonreactive Nonreactive (BEAKER) (test code = 2585) [id number] 00:06:00 Test Item Value Reference Range Interpretation Comments PHOSPHORUS (BEAKER) (test code = 3.2 mg/dL 2.3-4.7 604) [id number] 00:03:00 Test Item Value Reference Range Interpretation Comments PARTIAL THROMBOPLASTIN TIME 36.0 seconds 22.5-36.0 (BEAKER) (test code = 760) CBC W/PLT COUNT & AUTO [id number] 23:45:00 Test Item Value Reference Range Interpretation [...] PERCENT (BEAKER) (test code = 2801) POCT-GLUCOSE [id number] 17:39:00 Test Item Value Reference Range Interpretation Comments POC-GLUCOSE METER 116 mg/dL 70-110 H TESTED AT [facility] [address] ([facility]) (test code = [place] 1538) [address] [id number] 15:35:00 Test Item Value Reference Range Interpretation Comments THYROID STIMULATING HORMONE 1.39 uIU/mL 0.35-4.94 (BEAKER) (test code = 772) [id number] 15:06:00 Test Item Value Reference Range Interpretation Comments PARTIAL THROMBOPLASTIN TIME 31.0 seconds 22.5-36.0 (BEAKER) (test code = 760) Prior to initiating heparinPROTHROMBIN [id number] 15:05:00 Test Item Value Reference Range Interpretation Comments PROTIME (BEAKER) (test code = 14.4 seconds 11.7-14.7 759) INR (BEAKER) (test code = 370) 1.1 <=5.9 RECOMMENDED COUMADIN/WARFARIN INR THERAPY RANGESSTANDARD DOSE: 2.0 - 3.0 Includes: PROPHYLAXIS forvenous thrombosis, systemic embolization; TREATMENT for venous thrombosis and/or pulmonary embolus.HIGH RISK: Target INR is 2.5-3.5 for patients with mechanical heart valves.PLATELET [id number] 14:52:00 Test Item Value Reference Range Interpretation Comments PLATELET COUNT (JARROD) (test 109 K/CU MM 150-450 L code = 756) POCT-GLUCOSE [id number] 12:00:00 Test Item Value Reference Range Interpretation Comments POC-GLUCOSE METER 186 mg/dL 70-110 H TESTED AT [facility] [address] (JARROD) (test code = [place] 1538) [address] RAD, CHEST, 1 VIEW, NON [id number] 11:43:00Reason for exam:->SOB, known severe MRShould this be performed at the bedside?->YesFINAL REPORT Chest one view AP 01/08/2018 11:42 AM CLINICAL INDICATION: SOB, kno wn severe MR COMPARISON: 12/02/2017 IMPRESSION: Cardiomediastinal contours are stable. There is mild pulmonary edema. There are trace bilateral pleural effusions. Signed: Yevgeniy Anderson Verified Date/Time: 01/08/2018 11:43:52 Reading Location: [facility] Radiology Reading Room Electronic ally signed by: YEVGENIY ANDERSON M.D. on 01/08/2018 11:43 AMRAPID CK-MB 2017-12-02 10:04:00 Test Item Value Reference Range Interpretation Comments RAPID CKMB (JARROD) (test code = 1.5 ng/mL 0.0-4.3 1482) RAPID TROPONIN [id number] 10:04:00 Test Item Value Reference Range Interpretation Comments RAPID TROPONIN I (JARROD) (test code < ng/mL <0.05 = 1483) RAD, CHEST, 2 [id number] 10:00:00Reason for exam:->Chest PainFINAL REPORT Chest two views Discussion: Heart size upper limits of normal. Bilateral interstitial edema with small bilateral effusions. No pneumothorax. Bones and soft tissues unremarkable. Signed: Rhea Colindres Verified Date/Time: 12/02/2017 10:00:39 Reading Location:[facility] Radiology Reading Room B-TYPE NATRIURETIC FACTOR (BNP)2017-12-02 09:56:00 Test Item Value Reference Range Interpretation Comments B-TYPE NATRIURETIC PEPTIDE 1990 pg/mL 0-100 H (BEAKER) (test code = 700) BASIC METABOLIC [id number] 09:52:00 Test Item Value Reference Range Interpretation [...] S NOT APPLICABLE FOR DIALYSIS PATIEN TS. [id number] 09:51:00 Test Item Value Reference Range Interpretation Comments MAGNESIUM (BEAKER) (test code = 1.7 mg/dL 1.5-3.0 627) CBC W/PLT COUNT & AUTO [id number] 09:50:00 Test Item Value Reference Range Interpretation [...] (BEAKER) (test code = 417) CD4/CD8 Ratio [id number] 08:04:00 Test Item Value Reference Range Interpretation Comments Absolute CD 4 [place] (test code 188 /uL 359-1519 L = 945854) % CD 4 Pos. Lymph. (test code = 37.6 % 30.8-58.5 N 247092) Abs. CD 8 Suppressor (test code 183 /uL 109-897 N = 787157) % CD 8 Pos. Lymph. (test code = 36.6 % 12.0-35.5 H 723482) CD4/CD8 Ratio (test code = 1.03 0.92-3.72 N 570379) WBC (test code = 831799) 5.0 x10E3/uL 3.4-10.8 N RBC (test code = 147990) 3.00 x10E6/uL 4.14-5.80 L Hemoglobin (test code = 805884) 9.6 g/dL 13.0-17.7 L Hematocrit (test code = 053883) 27.6 % 37.5-51.0 L MCV (test code = 541448) 92 fL 79-97 N MCH (test code = 730998) 32.0 pg 26.6-33.0 N MCHC (test code = 939964) 34.8 g/dL 31.5-35.7 N RDW (test code = 751341) 15.5 % 12.3-15.4 H Platelets (test code = 064972) 113 x10E3/uL 150-379 L Neutrophils (test code = 84 % Not Estab. N 145213) Lymphs (test code = 972576) 9 % Not Estab. N Monocytes (test code = 576043) 6 % Not Estab. N Eos (test code = 248664) 1 % Not Estab. N Basos (test code = 580292) 0 % Not Estab. N Neutrophils (Absolute) (test 4.2 x10E3/uL 1.4-7.0 N code = 697344) Lymphs (Absolute) (test code = 0.5 x10E3/uL 0.7-3.1 L 993037) Monocytes(Absolute) (test code 0.3 x10E3/uL 0.1-0.9 N = 592781) Eos (Absolute) (test code = 0.0 x10E3/uL 0.0-0.4 N 941847) Baso (Absolute) (test code = 0.0 x10E3/uL 0.0-0.2 N 716031) Immature Granulocytes (test 0 % Not Estab. N code = 734343) Immature Grans (Abs) (test code 0.0 x10E3/uL 0.0-0.1 N = 502799) Culture, Blood [id number] 08:42:00Specimen: BloodCollected: 11/19/2017 00:21 Status: Final Last Updated: 11/24/2017 08:42 Culture Result (Final) (Final) No Growth After 5 DaysCulture, Blood [id number] 08:42:00 Specimen: BloodCollected: 11/18/2017 20:30 Status: Final Last Updated: 11/24/2017 08:42 Culture Result (Final) (Final) No Growth After 5 DaysPOC Glucose, [id number] 11:51:00 Test Item Value Reference Range Interpretation Comments POC Glucose (test 148 mg/dL 70-115 H Notify RN or MDIf you code = POCGLUC) consider you r patient critically ill, the [facility] Accu-Chek InformII metershould not be used for Glucose determinations. Draw a venous Glucose and send to the Main Lab for Analysis. CK [id number] 07:42:00 Test Item Value Reference Range Interpretation Comments CK (test code = CK) na U/L 39-308 N CKMB (test code = CKMB) 4.0 ng/mL 0.0-4.9 N CKMB% (test code = CKMBP) 0.0 % 0.0-3.4 N [id number] 07:39:00 Test Item Value Reference Range Interpretation Comments NT ProBnp (test code = PBNP) >83004 pg/mL 0-124 H Troponin [id number] 07:18:00 Test Item Value Reference Range Interpretation Comments Troponin T (test code = MADHAV) 0.103 ng/mL 0.000-0.090 H Lactate [id number] 07:18:00 Test Item Value Reference Range Interpretation Comments LDH (test code = LDH) 271 U/L 135-225 H POC Glucose, [id number] 06:50:00 Test Item Value Reference Range Interpretation Comments POC Glucose (test 154 mg/dL 70-115 H Notify RN or MDIf you code = POCGLUC) consider you r patient critically ill, the [facility] Accu-Chek InformII metershould not be used for Glucose determinations. Draw a venous Glucose and send to the Main Lab for Analysis. CK [id number] 01:08:00 Test Item Value Reference Range Interpretation Comments CK (test code = CK) na U/L 39-308 N CKMB (test code = CKMB) 3.6 ng/mL 0.0-4.9 N CKMB% (test code = CKMBP) 0.0 % 0.0-3.4 N Troponin [id number] 01:08:00 Test Item Value Reference Range Interpretation Comments Troponin T (test code = MADHAV) 0.106 ng/mL 0.000-0.090 H XR CHEST 1 [id number] 21:02:01CLINICAL INFORMATION: Vascular congestion.Dictation Location: R 16Comparison: 11/18/2017 showed perihilar and lower lobe opacities. Technique: Portable AP 1951 hoursFINDINGS: Monitoring electrodes overlie the chest wall. Cardiomegaly withincreasing central vascular interstitial prominence with bibasilaropacities and effusions. No interval bone changes.IMPRESSION: Changes could indicate worsening cardiac decompensation orfluid overload.POC Glucose, [id number] 20:15:00 Test Item Value Reference Range Interpretation Comments POC Glucose (test 139 mg/dL 70-115 H If you con hosiery mater your code = POCGLUC) patient crit ically ill, the [facility] Accu- Chek InformII meters hould not be used for Glu cose determinations. Draw a venous Glucose and send to the Main Lab for Analysis. POC Glucose, [id number] 16:52:00 Test Item Value Reference Range Interpretation Comments POC Glucose (test 123 mg/dL 70-115 H If you con hosiery mater your code = POCGLUC) patient crit ically ill, the [facility] Accu- Chek InformII meters hould not be used for Glu cose determinations. Draw a venous Glucose and send to the Main Lab for Analysis. POC Glucose, [id number] 12:04:00 Test Item Value Reference Range Interpretation Comments POC Glucose (test 140 mg/dL 70-115 H If you con hosiery mater your code = POCGLUC) patient crit ically ill, the [facility] Accu- Chek InformII meters hould not be used for Glu cose determinations. Draw a venous Glucose and send to the Main Lab for Analysis. POC Glucose, [id number] 08:01:00 Test Item Value Reference Range Interpretation Comments POC Glucose (test 126 mg/dL 70-115 H If you con hosiery mater your code = POCGLUC) patient crit ically ill, the [facility] Accu- Chek InformII meters hould not be used for Glu cose determinations. Draw a venous Glucose and send to the Main Lab for Analysis. CK [id number] 06:03:00 Test Item Value Reference Range Interpretation Comments CK (test code = CK) na U/L 39-308 N CKMB (test code = CKMB) 2.8 ng/mL 0.0-4.9 N CKMB% (test code = CKMBP) 0.0 % 0.0-3.4 N Basic Metabolic [id number] 05:51:00 Test Item Value Reference Range Interpretation [...] the National Kidney Foundation,http ://nkd ep.nih.gov Magnesium, [id number] 05:51:00 Test Item Value Reference Range Interpretation Comments Magnesium (test code = MG) 1.9 mg/dL 1.7-2.5 N [id number] 05:51:00 Test Item Value Reference Range Interpretation Comments Phosphorus (test code = PO4) 3.8 mg/dL 2.70-4.50 N [id number] 05:51:00 Test Item Value Reference Range Interpretation Comments NT ProBnp (test code = PBNP) >77716 pg/mL 0-124 H Troponin [id number] 05:51:00 Test Item Value Reference Range Interpretation Comments Troponin T (test code = MADHAV) 0.126 ng/mL 0.000-0.090 H CBC with [id number] 05:34:00 Test Item Value Reference Range Interpretation [...] code = ALYMPH) 0.4 K/cumm 0.5-4.6 L Edwards Abs (test code = AMONO) 0.6 K/cumm 0.0-1.2 N Eos Abs (test code = AEOS) 0.13 K/cumm 0.00-0.74 N Baso Abs (test code = ABASO) 0.0 K/cumm 0.00-0.21 N CK [id number] 18:39:00 Test Item Value Reference Range Interpretation Comments CK (test code = CK) HIDE U/L 39-308 N CKMB (test code = CKMB) 3.2 ng/mL 0.0-4.9 N CKMB% (test code = CKMBP) HIDE % 0.0-3.4 N Troponin [id number] 18:39:00 Test Item Value Reference Range Interpretation Comments Troponin T (test code = MADHAV) 0.126 ng/mL 0.000-0.090 H Hep B Surface [id number] 18:39:00 Test Item Value Reference Range Interpretation Comments Hep Bs Ag (test code = HBSAG) Nonreactive Non-Reactive A POC Glucose, [id number] 16:47:00 Test Item Value Reference Range Interpretation Comments POC Glucose (test 143 mg/dL 70-115 H If you con hosiery mater your code = POCGLUC) patient crit ically ill, the [facility] Accu- Chek InformII meters hould not be used for Glu cose determinations. Draw a venous Glucose and send to the Main Lab for Analysis. XR CHEST 1 [id number] 08:18:18EXAM: Portable AP chest x-rayLOCATION: R16 INDICATION: CoughCOMPARISON: 11/07/2017FINDINGS:The cardiacsilhouette is stable enlargement. There are increasinginterstitial opacities, most evident in the per ihilar regions and lowerlobes. There is blunting of the costophrenic angles bilaterally. Thereis no discernible pneumothorax.IMPRESSION:Increasing perihilar and bilateral lower lobe opacities compared to theprior exam dated 11/07/2017. Findings may represent pulmonary edema orpneumonia in the appropriate clinical setting.Comprehensive Metabolic [id number] 08:05:00 Test Item Value Reference Range Interpretation [...] the National Kidney Foundation,http ://nkd ep.nih.gov CK [id number] 08:05:00 Test Item Value Reference Range Interpretation Comments CK (test code = CK) 149 U/L 39-308 N Troponin [id number] 08:02:00 Test Item Value Reference Range Interpretation Comments Troponin T (test code = MADHAV) 0.114 ng/mL 0.000-0.090 H Lrv-[id number] 08:02:00 Test Item Value Reference Range Interpretation Comments NT ProBnp (test code = PBNP) >94494 pg/mL 0-124 H CBC with [id number] 07:53:00 Test Item Value Reference Range Interpretation [...] code = ALYMPH) 0.9 K/cumm 0.5-4.6 N Edwards Abs (test code = AMONO) 0.4 K/cumm 0.0-1.2 N Eos Abs (test code = AEOS) 0.11 K/cumm 0.00-0.74 N Baso Abs (test code = ABASO) 0.0 K/cumm 0.00-0.21 N XR CHEST 1 [id number] 21:38:09EXAM: CHEST ONE VIEWINDICATION: CoughCOMPARISON: October 06, 2017TECHNIQUE: AP view of the chest.FINDINGS: The cardiomediastinal silhouette is unchanged. Mild congestive changesbilaterally. No pneumothorax or pleural effusion is identified. Theosseous structures are unremarkable.IMPRESSION: Diffuse congestive changes bilaterally.LOCATION: R16US DUPLX EXT VEINS [facility], [id number] 20:09:34AFTER HOURS SERVICE ON: 10/06/2017 8:09 PMRIGHT Lower Extremity Venous Duplex Doppler ExaminationLocation Code [id number]: SwellingTechnique: Real-time castillo scale, Doppler spectral analysis [...] Lower Extremity Venous Duplex Doppler ExaminationLocation Code [id number] ry: SwellingTechnique: Real-time castillo scale, Doppler spectral [...] of DVT in the imaged vessels.Comprehensive Metabolic [id number] 17:40:00 Test Item Value Reference Range Interpretation [...] National Kidney Foundation,http ://nkd ep.nih.gov CBC with [id number] 17:15:00 Test Item Value Reference Range Interpretation [...] code = ALYMPH) 1.3 K/cumm 0.5-4.6 N Edwards Abs (test code = AMONO) 0.6 K/cumm 0.0-1.2 N Eos Abs (test code = AEOS) 0.12 K/cumm 0.00-0.74 N Baso Abs (test code = ABASO) 0.0 K/cumm 0.00-0.21 N XR CHEST 1 [id number] 16:56:42CHEST 1 VIEW: [id number]: coughCOMPARISON:Sep 24, 2017FINDINGS:The heart is enlarged. There is engorgement of the central pulmonaryvasculature. There are patchy bibasilar areas of infiltrate oratelectasis with bilateral effusions. No pneumothorax is present. IMPRESSION: 1. Patchy areas of atelectasis or infiltrate in the lung bases withsmall bilateral effusions and vascular congestion most likely secondaryto CHF.Culture, Blood [id number] 14:58:00Specimen: BloodCollected: 09/24/2017 13:05 Status: Final Last Updated: 09/29/2017 14:58 (1) ER Bed 1 Culture Result (Final) (Final) No Growth After 5 DaysCulture, Blood [id number] 14:58:00Specimen: BloodCollected: 09/24/2017 12:50 Status: Final Last Updated: 09/29/2017 14:58 (1) ER Bed 1 Culture Result (Final) (Final) No Growth After 5 DaysPOC Glucose, [id number] 10:54:00 Test Item Value Reference Range Interpretation Comments POC Glucose (test 168 mg/dL 70-115 H If you con hosiery mater your code = POCGLUC) patient crit ically ill, the [facility] Accu- Chek InformII meters hould not be used for Glu cose determinations. Draw a venous Glucose and send to the Main Lab for Analysis. POC Glucose, [id number] 07:16:00 Test Item Value Reference Range Interpretation Comments POC Glucose (test 143 mg/dL 70-115 H If you con hosiery mater your code = POCGLUC) patient crit ically ill, the [facility] Accu- Chek InformII meters hould not be used for Glu cose determinations. Draw a venous Glucose and send to the Main Lab for Analysis. CBC with [id number] 07:15:00 Test Item Value Reference Range Interpretation [...] code = ALYMPH) 1.3 K/cumm 0.5-4.6 N Edwards Abs (test code = AMONO) 0.7 K/cumm 0.0-1.2 N Eos Abs (test code = AEOS) 0.07 K/cumm 0.00-0.74 N Baso Abs (test code = ABASO) 0.0 K/cumm 0.00-0.21 N Magnesium, [id number] 07:03:00 Test Item Value Reference Range Interpretation Comments Magnesium (test code = MG) 2.0 mg/dL 1.7-2.5 N Basic Metabolic [id number] 07:03:00 Test Item Value Reference Range Interpretation [...] National Kidney Foundation,http ://nkd ep.nih.gov POC Glucose, [id number] 21:40:00 Test Item Value Reference Range Interpretation Comments POC Glucose (test 129 mg/dL 70-115 H If you con hosiery mater your code = POCGLUC) patient crit ically ill, the [facility] Accu- Chek InformII meters hould not be used for Glu cose determinations. Draw a venous Glucose and send to the Main Lab for Analysis. Hep B Surface [id number] 18:36:00 Test Item Value Reference Range Interpretation Comments Hep Bs Ag (test code = HBSAG) Nonreactive Non-Reactive A POC Glucose, [id number] 10:51:00 Test Item Value Reference Range Interpretation Comments POC Glucose (test 216 mg/dL 70-115 H If you con hosiery mater your code = POCGLUC) patient crit ically ill, the [facility] Accu- Chek InformII meters hould not be used for Glu cose determinations. Draw a venous Glucose and send to the Main Lab for Analysis. POC Glucose, [id number] 07:57:00 Test Item Value Reference Range Interpretation Comments POC Glucose (test 164 mg/dL 70-115 H If you con hosiery mater your code = POCGLUC) patient crit ically ill, the [facility] Accu- Chek InformII meters hould not be used for Glu cose determinations. Draw a venous Glucose and send to the Main Lab for Analysis. POC Glucose, [id number] 19:47:00 Test Item Value Reference Range Interpretation Comments POC Glucose (test 140 mg/dL 70-115 H Notify RN or MDIf you code = POCGLUC) consider you r patient critically ill, the [facility] Accu-Chek InformII metershould not be used for Glucose determinations. Draw a venous Glucose and send to the Main Lab for Analysis. Troponin [id number] 19:36:00 Test Item Value Reference Range Interpretation Comments Troponin T (test code = MADHAV) 0.121 ng/mL 0.000-0.090 H CK [id number] 19:25:00 Test Item Value Reference Range Interpretation Comments CK (test code = CK) 160 U/L 39-308 N The valu e HIDE originally released by [facility] on 09/25/2017 19:1 2 waschanged to 1 60 by [employer] on 09/25 19:24 CKMB (test code = 3.0 ng/mL 0.0-4.9 N CKMB) CKMB% (test code = 1.9 % 0.0-3.4 N The value HIDE originally CKMBP) released by [facility] on 09/25/2017 19:1 2 waschanged to 1 .9 by [employer] on 09/25 19:24 POC Glucose, [id number] 16:42:00 Test Item Value Reference Range Interpretation Comments POC Glucose (test 123 mg/dL 70-115 H If you con hosiery mater your code = POCGLUC) patient crit ically ill, the [facility] Accu- Chek InformII meters hould not be used for Glu cose determinations. Draw a venous Glucose and send to the Main Lab for Analysis. POC Glucose, [id number] 12:09:00 Test Item Value Reference Range Interpretation Comments POC Glucose (test 141 mg/dL 70-115 H If you con hosiery mater your code = POCGLUC) patient crit ically ill, the [facility] Accu- Chek InformII meters hould not be used for Glu cose determinations. Draw a venous Glucose and send to the Main Lab for Analysis. Hep B Surface [id number] 07:59:00 Test Item Value Reference Range Interpretation Comments Hep Bs Ag (test code = HBSAG) Nonreactive Non-Reactive A CK [id number] 07:43:00 Test Item Value Reference Range Interpretation Comments CK (test code = CK) n/a U/L 39-308 N CKMB (test code = CKMB) 2.4 ng/mL 0.0-4.9 N CKMB% (test code = CKMBP) 0.0 % 0.0-3.4 N Troponin [id number] 07:38:00 Test Item Value Reference Range Interpretation Comments Troponin T (test code = MADHAV) 0.134 ng/mL 0.000-0.090 H Thyroid Stimulating Hormone (TSH)2017-09-25 07:38:00 Test Item Value Reference Range Interpretation Comments TSH (test code = TSH) 1.10 mIU/mL 0.270-4.200 N [id number] 07:38:00 Test Item Value Reference Range Interpretation Comments Phosphorus (test code = PO4) 3.4 mg/dL 2.70-4.50 N Comprehensive Metabolic [id number] 07:38:00 Test Item Value Reference Range Interpretation [...] the National Kidney Foundation,http ://nkd ep.nih.gov Magnesium, [id number] 07:38:00 Test Item Value Reference Range Interpretation Comments Magnesium (test code = MG) 2.0 mg/dL 1.7-2.5 N CK [id number] 07:31:00 Test Item Value Reference Range Interpretation Comments CK (test code = CK) 159 U/L 39-308 N Lipid [id number] 07:31:00 Test Item Value Reference Range Interpretation [...] LDL/HDL (test code = 1 LDLPHDL) Glycosylated [id number] 07:24:00 Test Item Value Reference Range Interpretation Comments HBA1c (test code = HBA1C) 5.0 % 4.8-5.9 N CBC with [id number] 07:20:00 Test Item Value Reference Range Interpretation [...] code = ALYMPH) 0.8 K/cumm 0.5-4.6 N Edwards Abs (test code = AMONO) 0.5 K/cumm 0.0-1.2 N Eos Abs (test code = AEOS) 0.10 K/cumm 0.00-0.74 N Baso Abs (test code = ABASO) 0.0 K/cumm 0.00-0.21 N POC Glucose, [id number] 07:03:00 Test Item Value Reference Range Interpretation Comments POC Glucose (test 147 mg/dL 70-115 H If you con hosiery mater your code = POCGLUC) patient crit ically ill, the [facility] Accu- Chek InformII meters hould not be used for Glu cose determinations. Draw a venous Glucose and send to the Main Lab for Analysis. POC Glucose, [id number] 22:05:00 Test Item Value Reference Range Interpretation Comments POC Glucose (test 134 mg/dL 70-115 H If you con hosiery mater your code = POCGLUC) patient crit ically ill, the [facility] Accu- Chek InformII meters hould not be used for Glu cose determinations. Draw a venous Glucose and send to the Main Lab for Analysis. Blood Gas+Lytes+Glu+Ca+Hgb+Hct+[id number] 18:31:00 Test Item Value Reference Range Interpretation [...] (test code = alokrblvverqnscrit COMMENT) liz Pierre@ [id number]/23figrrt Puncture Site (test code = Radial. R PUNSITE) Drawing Tech ID (test code gianfranco fi = DRAWTECH) iPAP (test code = IPAP) 0 cmH2O Respiratory Rate (test code 0 = RESP RATE) Lactic Acid, Blood Gas 0.4 mmol/L (test code = BGLA) CT CHEST W/O [id number] 16:48:03CT CHEST W/O CONTRASTLOCATION CODE: R16 HISTORY: [...] bilateral axillary, prevascular, andparatracheal lymph nodes.Influenza B [id number] 14:36:00Specimen: NasalCollected: 09/24/2017 14:04 Status: Final Last [...] Culture of negative samples is recommended.Influenza A [id number] 14:34:00Specimen: NasalCollected: 09/24/2017 14:04 Status: Final Last [...] Culture of negative samples is recommended.Comprehensive Metabolic [id number] 13:54:00 Test Item Value Reference Range Interpretation [...] the National Kidney Foundation,http ://nkd ep.nih.gov Troponin [id number] 13:54:00 Test Item Value Reference Range Interpretation Comments Troponin T (test code = MADHAV) 0.124 ng/mL 0.000-0.090 H Fri-[id number] 13:54:00 Test Item Value Reference Range Interpretation Comments NT ProBnp (test code = PBNP) >24313 pg/mL 0-124 H CK [id number] 13:54:00 Test Item Value Reference Range Interpretation Comments CK (test code = CK) 222 U/L 39-308 N CKMB (test code = CKMB) 3.1 ng/mL 0.0-4.9 N CKMB% (test code = CKMBP) 1.4 % 0.0-3.4 N CK [id number] 13:54:00 Test Item Value Reference Range Interpretation Comments CK (test code = CK) 222 U/L 39-308 N Partial Thromboplastin [id number] 13:43:00 Test Item Value Reference Range Interpretation Comments aPTT (test code = PTT) 35.70 seconds 24.39-37.25 N Prothrombin [id number] 13:43:00 Test Item Value Reference Range Interpretation Comments PT (test code = PT) 11.30 seconds 9.78-13.35 N INR (test code = INR) 0.99 Ratio 0.6-1.2 N Lactic Acid [id number] 13:41:00 Test Item Value Reference Range Interpretation Comments Lactic Acid, Bld (test code = LAC) 1.3 mmol/L 0.5-1.9 N CBC with [id number] 13:32:00 Test Item Value Reference Range Interpretation [...] code = ALYMPH) 1.2 K/cumm 0.5-4.6 N Edwards Abs (test code = AMONO) 0.6 K/cumm 0.0-1.2 N Eos Abs (test code = AEOS) 0.23 K/cumm 0.00-0.74 N Baso Abs (test code = ABASO) 0.0 K/cumm 0.00-0.21 N XR CHEST 1 [id number] 12:50:14XR CHEST 1 VIEWLOCATION: [id number]: None.INDICATION: CoughDISCUSSION:A single portable chest radiograph was [...]
--- NOTE | 2021-07-30 11:43 | RAD REPORT ---
EXAM DESCRIPTION: CT - Head Brain Wo Cont - 07/30/2021 11:36 am CLINICAL HISTORY: Vision changes Headache, drowsiness COMPARISON: No comparisons TECHNIQUE: All CT scans are performed using dose optimization technique as appropriate and may inclu de automated exposure control or mA/KV adjustment according to patient size. FINDINGS: No intracranial hemorrhage, hydrocephalus or extra-axial fluid collection.No areas of brai n edema or evidence of midline shift. The paranasal sinuses and mastoids are clear. The calvarium is intact. IMPRESSION: No acute intracranial abnormality.
--- NOTE | 2021-07-30 12:04 | ER ---
Nurse's Notes [facility] Name: Salvatore Goldman Age: 66 yrs Sex: Male : 1955 Arrival Date: 07/30/2021 Time: 11:07 Bed 11 Private MD: Diagnosis: Visual floaters, decreased visual acuity Presentation: 07/30 11:16 Chief complaint: Patient states: is a type 2 diabetic, got up this morning and i saw iw something floating in his right eye and his vision got blurry , same thing happened in his left eye due to his cataracts. Coronavirus screen: At this time, the client does not indicate any symptoms associated with coronavirus-19. Ebola Screen: Patient negative for fever greater than or equal to 101.5 degrees Fahrenheit, and additional compatible Ebola Virus Disease symptoms Patient denies exposure to infectious person. Patient denies travel to an Ebola-affected area in the 21 days before illness onset. No symptoms or risks identified at this time. Initial Sepsis Screen: Does the patient meet any 2 criteria? No. Patient's initial sepsis screen is negative. Does the patient have a suspected source of infection? No. Patient's initial sepsis screen is negative. Risk Assessment: Do you want to hurt yourself or someone else? Patient reports no desire to harm self or others. Onset of symptoms was July 30, 2021. 11:16 Method Of Arrival: Ambulatory iw 11:16 Acuity: NARDA 3 iw Historical: - Allergies: 11:17 No Known Allergies; iw - PMHx: 11:17 Cirrhosis; Diabetes - NIDDM; Dialysis; heart valve; Hepatitis; HIV; Hyperlipidemia; iw Hypertensive disorder; Karposi Sarcoma (left leg); kidney failure; L arm HD access; - Immunization history:: Adult Immunizations unknown. - Social history:: Smoking status: . Screenin:39 Abuse screen: Denies threats or abuse. Denies injuries from another. Nutritional iw screening: No deficits noted. Tuberculosis screening: No symptoms or risk factors identified. Fall Risk None identified. Assessment: 11:38 General: Appears in no apparent distress. Behavior is calm, cooperative. Pain: Denies iw pain. Neuro: Level of Consciousness is awake, alert, obeys commands, Oriented to person, place, time, situation, Moves all extremities. Reports blurred vision in outer aspect of conjuctiva of right eye since this morning. Cardiovascular: Patient's skin is warm and dry. Respiratory: Respiratory effort is even, unlabored, Respiratory pattern is regular, symmetrical. Derm: Skin is intact, is healthy with good turgor. Musculoskeletal: Range of motion: intact in all extremities. Vital Signs: 11:16 BP 138 / 82; Pulse 86; Resp 16; Temp 97.6; Pulse Ox 98% on R/A; Weight 72.57 kg; Height iw 5 ft. 7 in. (170.18 cm); 11:16 Body Mass Index 25.06 (72.57 kg, 170.18 cm) iw ED Course: 11:07 Patient arrived in ED. as 11:17 Triage completed. iw 11:19 Gela Samson, RN is Primary Nurse. iw 11:19 Brennan Nicole MD is Attending Physician. sp3 11:36 CT Head Brain wo Cont In Process Unspecified. EDMS 12:03 Trace Snell MD is Referral Physician. sp3 12:09 No provider procedures requiring assistance completed. Patient did not have IV access iw during this emergency room visit. 12:09 Arm band placed on. iw 12:10 Patient has correct armband on for positive identification. iw Administered Medications: No medications were administered Outcome: 12:03 Discharge ordered by . sp3 12:10 Discharged to home ambulatory. iw 12:10 Condition: good 12:10 Discharge instructions given to patient, Instructed on discharge instructions, follow up and referral plans. need to follow up with refinery operator helper, either Dr. Snell or the one he sees in [place] 12:13 Patient left the ED. iw Signatures: Dispatcher [employer] EDSD Angely Merchant as Gela Samson, RN RN iw Brennan Nicole MD MD sp3
--- NOTE | 2021-07-30 12:04 | EDPHYS ---
Physician Documentation [facility] Name: Salvatore Goldman Age: 66 yrs Sex: Male : 1955 Arrival Date: 07/30/2021 Time: 11:07 Bed 11 Private MD: ED Physician Brennan Nicole HPI: 07/30 11:32 This 66 yrs old Black Male presents to ER via Ambulatory with complaints of Vision sp3 Problem. 11:32 66-year-old male with multiple medical problems including end-stage renal disease, sp3 cirrhosis, diabetes, hepatitis, HIV now presents with right eye decrease in visual acuity and floaters. Patient states that this has been going on for the last couple of weeks but this morning the floaters became worse and his vision is slightly hazy. Patient denies headache, facial numbness or tingling, left eye problems however patient has a cataract in his left eye that is overdue for surgery but was delayed secondary to Covid. His baseline vision out of his left eye is severely impaired. Patient also denies URI symptoms, hearing changes, neck pain, chest pain, shortness of breath, abdominal pain, nausea, vomiting, diarrhea, syncope, seizure, neuro symptoms, any other ROS this time.. Historical: - Allergies: 11:17 No Known Allergies; iw - PMHx: 11:17 Cirrhosis; Diabetes - NIDDM; Dialysis; heart valve; Hepatitis; HIV; Hyperlipidemia; iw Hypertensive disorder; Karposi Sarcoma (left leg); kidney failure; L arm HD access; - Immunization history:: Adult Immunizations unknown. - Social history:: Smoking status: . ROS: 11:34 Constitutional: Negative for fever, chills, and weight loss, ENT: Negative for injury, sp3 pain, and discharge, Neck: Negative for injury, pain, and swelling, Cardiovascular: Negative for chest pain, palpitations, and edema, Respiratory: Negative for shortness of breath, cough, wheezing, and pleuritic chest pain, Abdomen/GI: Negative for abdominal pain, nausea, vomiting, diarrhea, and constipation, Back: Negative for injury and pain, Neuro: Negative for headache, weakness, numbness, tingling, and seizure, Psych: Negative for depression, anxiety, suicide ideation, homicidal ideation, and hallucinations, Allergy/Immunology: Negative for hives, rash, and allergies. 11:34 All other systems are negative. Exam: 11:34 Constitutional: This is a well developed, well nourished patient who is awake, alert, sp3 and in no acute distress. Head/Face: Normocephalic, atraumatic. ENT: Nares patent. No nasal discharge, no septal abnormalities noted. External auditory canals are clear. Oropharynx with no redness, swelling, or masses, exudates, or evidence of obstruction, uvula midline. Mucous membranes moist. Neck: Trachea midline, no thyromegaly or masses palpated, and no cervical lymphadenopathy. Supple, full range of motion without nuchal rigidity, or vertebral point tenderness. No Meningismus. Chest/axilla: Normal chest wall appearance and motion. Nontender with no deformity. No lesions are appreciated. Cardiovascular: Regular rate and rhythm with a normal S1 and S2. No gallops, murmurs, or rubs. Normal PMI, no JVD. No pulse deficits. Respiratory: Lungs have equal breath sounds bilaterally, clear to auscultation and percussion. No rales, rhonchi or wheezes noted. No increased work of breathing, no retractions or nasal flaring. Skin: Warm, dry with normal turgor. Normal color with no rashes, no lesions, and no evidence of cellulitis. Neuro: Awake and alert, GCS 15, oriented to person, place, time, and situation. Cranial nerves II-XII grossly intact. Motor strength 5/5 in all extremities. Sensory grossly intact. Cerebellar exam normal. Normal gait. 11:34 Eyes: Right eye extraocular movements intact. Anterior chamber is clear and without hyphema. Pupil is equal round and reactive to light at 4 mm baseline in the dark with the lights out. Ophthalmic examination reveals a normal retina with good color and perfusion peripherally as can be seen with the ophthalmoscope. No AV nicking, retinal hemorrhages, or pale retina noted. Visual acuity is pending but will be decreased based on subjective findings from patient. Panoptic abdominal scope not available.. Vital Signs: 11:16 BP 138 / 82; Pulse 86; Resp 16; Temp 97.6; Pulse Ox 98% on R/A; Weight 72.57 kg; Height iw 5 ft. 7 in. (170.18 cm); 11:16 Body Mass Index 25.06 (72.57 kg, 170.18 cm) MDM: 11:21 Patient medically screened. sp3 11:36 Data reviewed: vital signs, nurses notes. ED course: Will obtain CT scan of the head sp3 due to patient later noting that he did have some prior headaches but none currently. At this time I do not believe patient is having a retinal detachment based on my clinical exam. Patient will however need close ophthalmology follow-up which she states he has a reference in [place] which is the same place as his prior visits. He is in the process of making that appointment. I accidentally patient is having a stroke or increased eye pressures. Patient has not historically had high eye pressures and there is no history of glaucoma. If CT scan is negative will discharge to ophthalmology follow-up. . 12:02 ED course: CT scan is negative. Will discharge patient home at this time with sp3 instructions to return if his vision gets worse.. 07/30 11:21 Order name: CT Head Brain wo Cont; Complete Time: 12:02 sp3 Administered Medications: No medications were administered Disposition Summary: 07/30/21 12:03 Discharge Ordered Location: Home sp3 Condition: Stable sp3 Diagnosis - Visual floaters, decreased visual acuity sp3 Followup: sp3 - With: Trace Snell MD - When: Upon discharge from the Emergency Department - Reason: Discharge Instructions: - Discharge Summary Sheet sp3 - Eye Floaters sp3 Forms: - Medication Reconciliation Form sp3 - Thank You Letter sp3 - Antibiotic Education sp3 - Prescription Opioid Use sp3 Signatures: Dispatcher [employer] Gela Huang, Brennan Landry RN, MD MD sp3
[2021-07-30 12:17] VITALS: BP 138/82; TEMP 97.6; O2SAT 98
== END 2021-07-30 12:13 | disposition home or self-care (01) ==
LOC: ER 11:05
DX: H54.50 Low vision, one eye, unspecified eye (principal); E11.22 Type 2 diabetes mellitus with diabetic chronic kidney disease; N18.6 End stage renal disease; B20 Human immunodeficiency virus [HIV] disease; C46.0 Kaposi's sarcoma of skin; Z99.2 Dependence on renal dialysis
CPT/HCPCS: 70450; 99283

== ENCOUNTER 2021-08-09 10:20 | Emergency (ER) | payer OTHER ==
[2021-08-09] MEDS ORDERED: ONDANSETRON 4 MG/2 ML VIAL ONE (10:37)
--- OUTSIDE RECORDS SUMMARY | 2021-08-09 10:48 | XMS REPORT | Continuity of Care Document ---
:1955 Author Organization [facility] t Address [address] [place] [address] Care Team Providers Name Role Phone BOBBY RADHA Primary Care Physician Unavailable MELVIN SHER Attending Clinician Unavailable DELANEY OCAMPO Attending Clinician Unavailable BOBBY Attending Clinician Unavailable SOBEIDA BARRY Attending Clinician Unavailable Xavier Alexander Attending Clinician [phone] Javed Attending Clinician Unavailable Reno MAYA Attending Clinician Unavailable JEFF ZAYAS Attending Clinician [...] Attending Clinician Unavailable MANDY Attending Clinician Unavailable NOLVIA RAMIREZ Attending Clinician Unavailable WANDA Attending Clinician Unavailable BRI CAMPBELL Attending Clinician Unavailable TROY SOLANO Attending Clinician Unavailable SANJUANA BREWER Attending Clinician Unavailable CHARI Attending Clinician Unavailable BHAVNA GERBER Attending Clinician Unavailable KAZ TURPIN Attending Clinician Unavailable EDENILSON ANTONIO Attending Clinician Unavailable Joy Attending Clinician [phone] Varun Attending Clinician [phone] Yoav Attending Clinician Unavailable Xavier HOLLOWAY Attending Clinician [...] MD, M.D., M Admitting Clinician Unavail able Xavier Alexander Unavailable [phone] Varun Unavailable [phone] Payers Payer Name Policy Type Policy Number Effective Date Expiration Date S prabhjot MEDICARE A B [id number] 2010 00:00:00 MEDICARE PART A & [id number] 2010 B 00:00:00 MEDICARE PART A [id number] 2010 \\T\\ B 00:00:00 CDC REVIEW [id number] 2020 00:00:00 Problems Condition Condition Condition Status Onset Resolution Last Treating Co mments Source Name Details Category Date Date Treatment Clinician Date Vitreous Condition Active 2020-092021-08-02 Joel Alexander hemorrhage 2- 11:11:33 [facility] [place] [facility] , right 00:00: ty 00 Health ESRD (end Condition Active 2020-092021-08-02 Joel Alexander stage 2- 11:11:33 [facility] renal 00:00: ty disease) 00 Health Regular Condition Active 2017-12-02 Angela Bond astigmatis 12-02 15:13:40 Mo Zac handy, 00:00: ty bilateral 00 Health Hypertensi Condition Active 2017-12-02 Joel Alexander on 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 [employer] [employer] 00:00: ty 00 Health Encounter Condition Active 2017-12-02 Joel Alexander for 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 [facility] [employer] screening 00:00: ty for eye 00 Health and ear disorders Hypertensi Condition Active 2017-12-02 Joel Alexander ve 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 Ramu Replaced By [facility] i retinopath 00:00: ty , 00 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, 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 00:00: ty 00 Health HIV Condition Active 2017-12-02 Angela Alexander gacy infection 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 [facility] [facility] 00:00: ty 00 Health Presbyopia Condition Active 2017-12-02 Joel Bond - OU 12-02 15:13:40 [facility] Hyperopia Condition Active 2017-12-02 Joel Bond - OU 12-02 15:13:40 [facility] 00[facility] ty 00 Health Allergies, Adverse Reactions, Alerts Allergy Allergy Status Severity Reaction(s) Onset Inactive Treating Comm ents Source Name Type Date Date Clinician CODEINE Allergy Active Med Other [facility] 12-02 00:00: 00 NO KNOWN Drug Active Univers ALLERGIE Class ity of S [facility] Social History Social Habit Start Date Stop Date Quantity Comments Source time of call 2021-08-02 2021-08-02 08/02/2021 10:18 [facility] 10:17:49 10:17:49 AM Health Medications Ordered Filled Start Stop Current Ordering Indication Dosage Frequency Signature Comments Components Source Medication Medication Date Date Medication? Clinician (SIG) Name Name LAMIVUDINE Yes [facility] (LAMIVUDINE 12-02 Communi TABS) TABS 00:00: ty 00 Health VITAMIN D2 Yes [facility] (ERGOCALCIF 12-02 Communi DARIAN TABS) 00:00: ty TABS 00 Health (AMLODIPINE Yes [facility] BESYLATE) 12-02 Communi 10 MG TABS 00:00: ty 00 Health PEDRO-EAMON Yes [facility] RX 4-02 Communi (B-COMPLEX 00:00: ty W/ C & 00 Health FOLIC ACID TABS) TABS CRESTOR Yes [facility] (ROSUVASTAT 4-02 Communi IN CALCIUM) 00:00: ty 5 MG TABS 00 Health (CALCIUM 2017-0 Yes [facility] ACETATE 4-02 Communi (PHOS 00:00: ty BINDER)) 00 Health 667 MG CAPS PROAIR HFA Yes [facility] (ALBUTEROL 4-02 Communi SULFATE 00:00: ty AERS) AERS 00 Health EPIVIR Yes [facility] (LAMIVUDINE 4-02 Communi SOLN) SOLN 00:00: ty 00 Health KALETRA Yes [facility] (LOPINAVIR- 4-02 Communi RITONAVIR 00:00: ty TABS) TABS 00 Health ISENTRESS Yes [facility] (RALTEGRAVI -02 Communi R POTASSIUM 00:00: ty TABS) TABS 00 Health Vital Signs Vital Name Observation Time Observation Value Comments Source HEIGHT 2020-02-26 00:00:00 170.2 cm WEIGHT 2020-02-26 00:00:00 73 kg HEIGHT 2020-04-21 00:00:00 170.2 cm WEIGHT 2020-04-21 00:00:00 69.854 kg HEIGHT 2020-04-21 00:00:00 170.2 cm WEIGHT 2020-04-21 00:00:00 69.854 kg HEIGHT 2020-02-26 00:00:00 170.2 cm WEIGHT 2020-02-26 00:00:00 73 kg blood pressure, 2021-08-02 10:11:01 76 mm[Hg] [facility] diastolic Health blood pressure, 2021-08-02 10:11:01 144 mm[Hg] [facility] systolic Health pulse rate 2021-08-02 10:11:01 90 /min [facility] Procedures Procedure Date / Time Performing Clinician Source Performed New Patient Comprehensive 2021-08-02 11:06:20 Ramu Alexander [facility] Opt - [id number] [facility] 2Q2P59T 2020-06-29 00:00:00 ENCPL 4B8X64H 2020-06-29 00:00:00 ENCPL 7W5C30O 2020-06-29 00:00:00 ENCPL 9H1F30N 2020-06-29 00:00:00 ENCPL 1I3W65U 2020-06-29 00:00:00 ENCPL 9E3U35Y 2020-06-29 00:00:00 ENCPL 2V7D52G 2020-06-29 00:00:00 ENCPL 7Q2I81A 2020-06-29 00:00:00 ENCPL 0Z5Q67Z 2020-06-29 00:00:00 ENCPL 2R3Z86C 2020-06-29 00:00:00 ENCPL 2U2D81T 2020-06-29 00:00:00 ENCPL 3W3Y42U 2020-06-29 00:00:00 ENCPL 2X6V83G 2020-06-29 00:00:00 ENCPL 5K7H95N 2020-06-29 00:00:00 ENCPL 8F4C73Z 2020-03-05 00:00:00 ENCPL 8O0F61Q 2020-03-05 00:00:00 ENCPL 2W9L92X 2020-03-05 00:00:00 ENCPL 3Y7G45J 2020-03-05 00:00:00 ENCPL 1R8X11K 2020-03-05 00:00:00 ENCPL 1J2X45Q 2020-03-05 00:00:00 ENCPL 4D9Y68T 2020-03-05 00:00:00 ENCPL 9K1U67R 2020-03-05 00:00:00 ENCPL 7H7L87K 2020-03-05 00:00:00 ENCPL 0X9O58C 2020-03-05 00:00:00 ENCPL 6V2W22Z 2020-03-05 00:00:00 ENCPL 6B5I99P 2020-03-05 00:00:00 ENCPL 1K2Y00Y 2020-03-05 00:00:00 ENCPL 9K7C39N 2020-03-05 00:00:00 ENCPL 5W5B09R 2020-03-05 00:00:00 ENCPL 1H1F78V 2020-03-05 00:00:00 ENCPL 8H6Q75D 2020-03-05 00:00:00 ENCPL 7W3I35J 2020-03-05 00:00:00 ENCPL 1O0M87P 2020-03-05 00:00:00 ENCPL 4Z7X09G 2020-03-05 00:00:00 ENCPL 6W2O72O 2020-03-05 00:00:00 ENCPL 2F5B43D 2019-01-08 00:00:00 ENCPL 6W1I16B 2019-01-08 00:00:00 ENCPL 2I9E13J 2019-01-08 00:00:00 ENCPL 0R7W92M 2019-01-08 00:00:00 ENCPL Dispensing Visit (UNLIVSTED 2018-03-25 10:14:05 Cason, Yuki [facility] OPHTHALMOLOGICAL Health SERVICE/PROCEDURE) Spherocyl, bif, plano to 2018-03-11 09:52:57 Cason, Yuki [facility] +/- 4.00d sphere, 0.12 to Health 2.00d cyl, per lens Frames, purchases 2018-03-11 09:52:36 Cason, [facility]uki [facility] Spherocyl, bif, plano to 2017-12-03 07:50:03 CasonYuki [facility] +/- 4.00d sphere, 0.12 to Health 2.00d cyl, per lens Frames, purchases 2017-12-03 07:49:43 Cason, [facility] Comprehensive 2017-12-02 15:27:18 Ramu Alexander [facility] [address] Health New Patient Intermediate 2017-12-02 14:28:18 Mo Bond [facility] [address] [facility] Encounters Start End Encounter Admission Attending Care Care Encounter Source Date/Time Date/Time Type Type Clinicians Facility Department ID 2020-07-06 Outpatient MELONIE SHANNON ENCCLR [id number] ENCCLR 21:26:21 N MELVIN 2020-02-26 Inpatient JORGE LUIS SANCHEZ [facility] [id number] [facility] 23:10:00 DELANEY 2021-10-23 2021-10-23 [id number] [place] 00:00:00 00:00:00 [email or web address] 2021-10-09 2021-10-09 [facility] [id number] [place] 00:00:00 00:00:00 [email or web address] 2021-09-05 2021-09-05 Outpatient [facility] [id number] [place] [address] 00:00:00 00:00:00 Health 2021-08-07 2021-08-07 Outpatient JOSE MIGUEL BARRY [facility] [id number] [place] 00:00:00 00:00:00 [facility] 2021-08-02 2021-08-02 Office Ramu Alexander [facility] [id number] [facility]:00 Visit Rosalba Burt [address] [facility] 2021-07-31 2021-07-31 Outpatient [facility] [id number] [place] 09:23:59 09:30:08 Health 2021-07-31 2021-07-31 Outpatient JOSE MIGUEL BARRY [facility] [id number] [place] 07:58:35 08:41:53 Health 2021-07-31 2021-07-31 Outpatient FRANCESCO [facility] [id number] [place] 00:00:00 00:00:00 [facility] 2021-07-21 2021-07-21 Outpatient EL MARQUEZ, [facility] SLE [id number] [facility] 07:11:08 23:59:00 [place] [facility] 2021-07-21 2021-07-21 Outpatient [facility] [id number] [facility] 00:00:00 23:59:00 [facility] 2021-07-19 2021-07-19 Outpatient EL SLE SLE [id number] [facility] 07:19:43 07:19:43 2021-07-17 2021-07-17 Outpatient [facility] [id number] [place] 12:03:08 12:07:37 [facility] 2021-07-17 2021-07-17 Outpatient BOBBY [facility] [id number] [place] 09:04:13 11:23:22 [facility] 2021-07-17 2021-07-17 Outpatient JOSE MIGUEL BARRY [facility] [id number] [place] 08:46:08 09:12:52 Health 2021-07-17 2021-07-17 Outpatient SELINA-GABBY [facility] [id number] [place] 00:00:00 00:00:00 JOSE GUILLERMO 2021-07-17 2021-07-17 Outpatient HARRIETT [facility] [id number] [place] 00:00:00 00:00:00 [facility] 2021-07-10 2021-07-10 Outpatient JOSE MIGUEL BARRY [facility] [id number] [place] 00:00:00 00:00:00 [facility] 2021-07-03 2021-07-03 Outpatient JOSE MIGUEL BARRY [facility] [id number] [place] 07:40:01 14:04:21 [facility] 2021-07-03 2021-07-03 Outpatient 3 [facility] [id number] [place] 08:05:52 08:18:57 [facility] 2021-07-03 2021-07-03 Outpatient BOBBY [facility] [id number] [place] 08:05:52 08:18:57 RADHA [facility] 2021-07-03 2021-07-03 Outpatient JUDD [facility] [id number] [place] 00:00:00 00:00:00 MARYAN [facility] 2021-07-03 2021-07-03 Outpatient HARRIETT [facility] [id number] [place] 00:00:00 00:00:00 DINERO [facility] 2021-06-26 2021-06-26 Outpatient JOSE MIGUEL BARRY [facility] [id number] [place] 07:54:30 08:35:16 [facility] 2021-06-12 2021-06-12 Outpatient JOSE MIGUEL BARRY [facility] [id number] [place] 07:56:03 08:33:36 [facility] 2021-05-29 2021-05-29 Outpatient JOSE MIGUEL BARRY [facility] [id number] [place] 08:28:20 09:29:41 [facility] 2021-05-15 2021-05-15 Outpatient JOSE MIGUEL BARRY [facility] [id number] [place] 08:03:38 08:31:36 [facility] 2021-05-01 2021-05-01 Outpatient [facility] [id number] [place] 08:40:51 08:46:27 [facility] 2021-05-01 2021-05-01 Outpatient JOSE MIGUEL BARRY [facility] [id number] [place] 08:04:58 08:32:39 [facility] 2021-05-01 2021-05-01 Outpatient DANIELLE [facility] [id number] [place] 00:00:00 00:00:00 [facility] 2021-04-24 2021-04-24 Outpatient JOSE MIGUEL BARRY [facility] [id number] [place] 08:03:45 08:22:54 [facility] 2021-04-17 2021-04-17 Outpatient JOSE MIGUEL BARRY [facility] [id number] [place] 08:38:35 08:58:58 [facility] 2021-04-10 2021-04-10 Outpatient FRANCESCO [facility] [id number] [place] 00:00:00 00:00:00 [facility] 2021-03-27 2021-03-27 Outpatient DANIELLE [facility] [id number] [place] 12:10:09 12:36:55 [facility] 2021-03-27 2021-03-27 Outpatient JOSE MIGUEL BARRY [facility] [id number] [place] 09:45:17 10:13:09 [facility] 2021-03-07 2021-03-07 Outpatient JOSE MIGUEL BARRY [facility] [id number] [place] 12:04:05 12:23:09 Health 2021-02-20 2021-02-20 Outpatient [facility] [id number] [place] 08:34:14 08:39:27 [facility] 2021-02-20 2021-02-20 Outpatient JOSE MIGUEL BARRY [facility] [id number] [place] 08:09:20 08:34:30 [facility] 2021-02-20 2021-02-20 Outpatient HARRIETT [facility] [id number] [place] 00:00:00 00:00:00 [facility] 2021-02-19 2021-02-19 Emergency [facility] [id number] [facility] 00:00:00 00:00:00 KRISTI [address] 2021-02-06 2021-02-06 Outpatient [facility] [id number] [place] 09:14:10 09:17:27 [facility] 2021-02-06 2021-02-06 Outpatient JOSE MIGUEL BARRY [facility] [id number] [place] 08:49:54 09:14:22 [facility] 2021-02-06 2021-02-06 Outpatient DANIELLE [facility] [id number] [place] 00:00:00 00:00:00 [facility] 2021-02-06 2021-02-06 Outpatient JUDD [facility] [id number] [place] 00:00:00 00:00:00 [facility] 2021-01-23 2021-01-23 Outpatient DANIELLE [facility] [id number] [place] 11:31:24 12:44:32 [facility] 2021-01-23 2021-01-23 Outpatient JOSE MIGUEL BARRY [facility] [id number] [place] 10:14:28 10:36:06 [facility] 2021-01-10 2021-01-10 Outpatient JOSE MIGUEL BARRY [facility] [id number] [place] 07:22:07 11:41:14 [facility] 2021-01-09 2021-01-09 Outpatient [facility] [id number] [place] 09:13:08 09:20:36 [facility] 2021-01-09 2021-01-09 Outpatient LORENZANA, [facility] [id number] [place] 08:19:59 09:12:38 [facility] 2021-01-09 2021-01-09 Outpatient JESSICA, [facility] [id number] [place] 00:00:00 00:00:00 [facility] 2021-01-09 2021-01-09 Outpatient LORENZANA, [facility] [id number] [place] 00:00:00 00:00:00 [facility] 2021-01-04 2021-01-04 Outpatient JOSE MIGUEL BARRY [facility] [id number] [place] 11:36:44 12:43:02 [facility] 2021-01-02 2021-01-02 Outpatient JOSE MIGUEL BARRY [facility] [id number] [place] 07:27:21 12:04:53 [facility] 2021-01-02 2021-01-02 Outpatient JOSE MIGUEL BARRY [facility] [id number] [place] 00:00:00 00:00:00 [facility] 2020-12-30 2020-12-30 Outpatient [facility] [id number] [place] 00:00:00 00:00:00 [facility] 2020-12-19 2020-12-19 Outpatient JOSE MIGUEL BARRY [facility] [id number] [place] 09:18:35 09:59:02 [facility] 2020-12-16 2020-12-16 Outpatient JESSICA, [facility] [id number] [place] 10:25:40 10:35:40 [facility] 2020-12-16 2020-12-16 [facility] [id number] [place] 00:00:00 00:00:00 [facility] 2020-11-28 2020-11-28 Emergency X VENITA, [facility] [id number] [facility] 22:52:00 22:52:00 [facility] 2020-11-24 2020-11-24 [facility] [id number] [place] 13:25:44 13:59:48 [facility] 2020-11-10 2020-11-10 [facility] [id number] [place] 00:00:00 00:00:00 [facility] 2020-11-09 2020-11-09 Outpatient JONNY MON [facility] [id number] [place] 07:51:58 08:14:33 Health 2020-10-27 2020-10-27 Outpatient RUPERTO, [facility] [id number] [place] 12:02:34 12:25:02 [facility] 2020-10-20 2020-10-20 Outpatient RUPERTO, [facility] [id number] [place] 00:00:00 00:00:00 [facility] 2020-10-20 2020-10-20 Outpatient RUPERTO, [facility] [id number] [place] 00:00:00 00:00:00 [facility] 2020-10-06 2020-10-06 Outpatient RUPERTO, [facility] [id number] [place] 11:11:47 11:11:47 [facility] 2020-07-08 2020-07-08 Outpatient JUNE SHER LABÓscar [id number] [facility] 08:37:00 08:37:00 MELVIN [facility] 2020-05-09 2020-06-28 Inpatient VO, [facility] [id number] [facility] 00:00:00 00:00:[address] 2020-04-21 2020-04-21 Emergency ER SLE Emergency [id number] SLE 20:49:00 20:49:00 2019-11-09 2019-11-09 Outpatient [facility] [id number] [facility] 08:51:00 08:51:00 KALYAN Paul 2019-09-12 2019-09-12 Emergency MUÑOZ, [facility] [id number] [facility] 00:00:00 00:00:00 [facility] 2017-12-02 2017-12-02 Office Ramu Alexander [facility] [id number] [facility] 00:00:00 00:00:00 Visit Julieta Hamilton [address] [facility] 2017-12-02 2017-12-02 Office Mo Bond [facility] Encoun ter/ [facility] 00:00:00 00:00:00 Visit Yuki Cason [id number] Replaced By [facility] [id number] [facility] 2017-11-18 2017-11-20 Inpatient C AMEI, [facility] [id number] 13:43:00 13:54:[address] [facility] 2017-11-07 2017-11-07 Emergency E [facility] MED [id number] [facility] 20:22:00 20:22:00 [facility] 2017-10-06 2017-10-06 Emergency E ELIANA, [facility] MED [id number] 14:25:00 14:25:00 [facility] Results Test Description Test Time Test Comments Results Result Comments Source PROTHROMBIN TIME/INR 2021-07-21 07:51:16 Test Item Value Reference Range Interpretation Comme nts PROTIME (BEAKER) (test code 19.0 seconds 11.9-14.2 H = 759) INR (BEAKER) (test code = 1.62 See_Comment [ Automated message] The [employer] system which ge nerated this result transmit jayla reference range: <=5.90. The reference range was not u sed to interpret this result as normal/abnormal . RECOMMENDED COUMADIN/WARFARIN INR THERAPY RANGESSTANDARD DOSE: 2.0 - 3.0 Includes: PROPHYLAXIS forvenous thrombosis, systemic embolization; TREATMENT for venous thrombosis and/or pulmonary embolus.HIGH RISK: Target INR is 2.5-3.5 for patients with mechanical heart valves.SARS-COV2/RT-PCR ([facility]) 2021-07-19 20:41:44 Test Item Value Reference Range Interpretation Comments SARS-COV2/RT-PCR (test code = Negative Negative [id number]) Negative result for this test determines that [...] the Chairez SARS-CoV-2 assay.Fact Sheet for Healthcare Providers:https://www.[employer]/emerita/RT SARS-CoV-2 HCP Fact Sheet 51- 552901.pdfFact Sheet for Healthcare Patients:https://www.[employer]/emerita/RT SARS-CoV-2 Patient Fact Sheet EN 51-413970W1.pdfHIV1 RNA # Plas RADHA DL=20 2021-07-05 16:15:28 Test Item Value Reference Range Interpretation Comments HIV1 RNA SerPl Ql RADHA+probe NOT DETECTED Not detected (test code = 33197-2) This test utilizes FDA cleared ERICH AmpliPrep/ERICH TaqMan HIV-1 test 2.0 from [employer] which allows quantitation of viral loads between [...] patients with HIV-1 infection. CD4+CD8+ Cells NFr [id number] 13:12:03 Test Item Value Reference Range Interpretation Comments T-cell CD4 subset 480 cells/uL See_Comment [Automate d message] pnl Bld (test code The syste m which = 35465-7) generated this result transmitted ref erence range: 431-1,62 3. The reference range was not used to interpr et this result as normal/abnormal . CD3+CD4+ 1.54 ratio 0.86-2.05 Cells/CD3+CD8+ Cells Bld (test code = 25793-6) CD4+CD8+ Cells NFr 40.0 % 25.0-56.0 Bld (test code = 43110-7) RPR [id number] 14:32:36 Test Item Value Reference Range Interpretation Comments T pallidum Ab Ser Ql Aggl (test NEGATIVE Negative, Equivocal code = 43193-2) Reagin+T pallidum IgG+IgM NEGATIVE Negative SerPl-Imp (test code = 19236-5) T-helper cells (CD4) [id number] 10:30:27 Test Item Value Reference Range Interpretation Comments T-helper cells (CD4) count (test code 512 uL = 49741-3) [facility], serum, by PCR, [id number] 10:30:25 Test Item Value Reference Range Interpretation Comments HIV-1RNA, serum, by PCR, quantitative 20 /mL (test code = 83696) [facility] [id number] 11:26:00 Test Item Value Reference Range Interpretation Comments AG HEPATITIS B SURFACE (test NEGATIVE SCREEN NEGATIVE code = HBSAG) AB HEPATITIS A [id number] 03:08:00 Test Item Value Reference Range Interpretation Comments AB HEPATITIS A IGM (test code = HAVMAB) AB HEPATITIS B [id number] 03:08:00 Test Item Value Reference Range Interpretation Comments AB HEPATITIS B SURFACE 96.5 mIU/mL Immunity>9.9 Sta tus of Immunity (test code = HBSAB) Anti-HBs Level --- I ncons istent with Imm unity 0.0 - 9.9Consis tent with Immunity >9.9 AB HEPATITIS A [id number] 03:08:00 Test Item Value Reference Range Interpretation Comments AB HEPATITIS A IGM Negative Negative Performed At: HD (test code = HAVMAB) [facility] [id number] [place], [place] [id number] lauren Chapman MD Ph:[phone] AB HEPATITIS B [id number] 03:08:00 Test Item Value Reference Range Interpretation Comments AB HEPATITIS B SURFACE 96.5 mIU/mL Immunity>9.9 Sta tus of Immunity (test code = HBSAB) Anti-HBs Level --- I ncons istent with Imm unity 0.0 - 9.9Consis tent with Immunity >9.9 COVID 19 Asymptomatic IH [id number] 09:05:00 Test Item Value Reference Range Interpretation [...] in Respiratory specimen by RADHA with probe [id number] 10:30:29 Test Item Value Reference Range Interpretation Comments SARS-CoV-2 (COVID-19) RNA Not detected Not-Detected [Presence] in Respiratory specimen by RADHA with probe detection (test code = 09296-6) SARS-CoV-2 (COVID-19) RNA [Presence] in Respiratory specimen by RADHA with probe [id number] 18:12:42 Test Item Value Reference Range Interpretation Comments SARS-CoV-2 (COVID-19) RNA Not detected Not-Detected [Presence] in Respiratory specimen by RADHA with probe detection (test code = 60992-9) SARS-CoV-2 (COVID-19) RNA [Presence] in Respiratory specimen by RADHA with probe [id number] 12:55:22 Test Item Value Reference Range Interpretation Comments SARS-CoV-2 (COVID-19) RNA Not detected Not-Detected [Presence] in Respiratory specimen by RADHA with probe detection (test code = 76773-8) SARS-CoV-2 (COVID-19) RNA [Presence] in Respiratory specimen by RADHA with probe [id number] 23:46:30 Test Item Value Reference Range Interpretation Comments SARS-CoV-2 (COVID-19) RNA Not detected Not-Detected [Presence] in Respiratory specimen by RADHA with probe detection (test code = 42757-7) TROPONIN [id number] 23:28:00 Test Item Value Reference Range Interpretation [...] failure, acidosis, acute neurological disease, and persistent tachyarrhythmia.Front End Specialist ID - PIAYA LBASIC METABOLIC [id number] 23:26:00 Test Item Value Reference Range Interpretation [...] S NOT APPLICABLE FOR DIALYSIS PATIEN TS. Front End Specialist ID - AKSHAT LB-TYPE NATRIURETIC FACTOR (BNP)2020-04-21 23:25:00 Test Item Value Reference Range Interpretation Comments B-TYPE NATRIURETIC PEPTIDE 1507 pg/mL 0-100 H (BEAKER) (test code = 700) Front End Specialist ID - AKSHAT LPT/WRQA1927-99-05 23:09:00 Test Item Value Reference Range Interpretation [...] mechanical heart valves.CBC W/PLT COUNT & AUTO [id number] 22:49:00 Test Item Value Reference Range Interpretation [...] (test code = 2801) RAD, CHEST, 2 [id number] 22:26:00Reason for exam:->SHORTNESS OF BREATH FINAL REPORT [...] Edenilson Gutierrez MDReport Verified Date/Time: 04/21/2020 22:26:38 POCT-GLUCOSE [id number] 15:36:00 Test Item Value Reference Range Interpretation Comments POC-GLUCOSE METER 133 mg/dL 70-110 H : TESTED A T [facility] 6720 (BEAKER) (test code = FOSTER Paul [facility], 1538) 15441: Front End Specialist/Techni kush ID = [id number] for Raquel Raoa POCT-GLUCOSE [id number] 12:38:00 Test Item Value Reference Range Interpretation Comments POC-GLUCOSE METER 100 mg/dL 70-110 : TESTED A T [facility] 6720 (BEAKER) (test code = FOSTER Paul [facility], 1538) [id number]: Front End Specialist/Techni ksuh ID = [id number] for Wi sindyiams, Areiona [id number] 09:28:00 Test Item Value Reference Range Interpretation Comments PARTIAL THROMBOPLASTIN TIME 67.8 seconds 22.5-36.0 H (BEAKER) (test code = 760) [id number] 07:14:00 Test Item Value Reference Range Interpretation Comments PARTIAL THROMBOPLASTIN TIME 146.9 seconds 22.5-36.0 H (BEAKER) (test code = 760) CBC W/PLT COUNT & AUTO [id number] 05:40:00 Test Item Value Reference Range Interpretation [...] (BEAKER) (test code = 2801) BASIC METABOLIC [id number] 05:24:00 Test Item Value Reference Range Interpretation [...] S NOT APPLICABLE FOR DIALYSIS PATIEN TS. Front End Specialist ID - LORENZO WPROTHROMBIN TIME/[id number] 04:52:00 Test Item Value Reference Range Interpretation [...] H : TESTED A T [facility] 6720 (Marfeel) (test code = [facility] [email or web address] [facility], 1538) 42023: Front End Specialist/Techni kush ID = [id number] for KATIA RAO [id number] 21:05:00 Test Item Value Reference Range Interpretation Comments PARTIAL THROMBOPLASTIN TIME 66.8 seconds 22.5-36.0 H (BEAKER) (test code = 760) [id number] 19:49:00 Test Item Value Reference Range Interpretation Comments PARTIAL THROMBOPLASTIN TIME > seconds 22.5-36.0 HH (BEAKER) (test code = 760) POCT-GLUCOSE [id number] 17:09:00 Test Item Value Reference Range Interpretation Comments POC-GLUCOSE METER 145 mg/dL 70-110 H : TESTED A T [facility] 6720 (Marfeel) (test code = [facility] [email or web address] [facility], 1538) 00197: Front End Specialist/Techni kush ID = [id number] for Christina Chisholm POCT-GLUCOSE [id number] 12:10:00 Test Item Value Reference Range Interpretation Comments POC-GLUCOSE METER 113 mg/dL 70-110 H : TESTED A T [facility] 6720 (BEAKER) (test code = [facility], 1538) 40885: Front End Specialist/Techni kush ID = [id number] for Christina Chisholm [id number] 11:50:00 Test Item Value Reference Range Interpretation Comments PARTIAL THROMBOPLASTIN TIME 96.6 seconds 22.5-36.0 H (BEAKER) (test code = 760) POCT-GLUCOSE [id number] 08:28:00 Test Item Value Reference Range Interpretation Comments POC-GLUCOSE METER 150 mg/dL 70-110 H : TESTED A T [facility] 6720 (BEAKER) (test code = [facility] [place], 1538) 27719: Front End Specialist/Techni kush ID = [id number] for Christina Chisholm BASIC METABOLIC [id number] 06:15:00 Test Item Value Reference Range Interpretation [...] S NOT APPLICABLE FOR DIALYSIS PATIEN TS. Front End Specialist ID - BSCBC W/PLT COUNT & AUTO [id number] 06:12:00 Test Item Value Reference Range Interpretation [...] 0-1 PERCENT (BEAKER) (test code = 2801) [id number] 05:43:00 Test Item Value Reference Range Interpretation Comments PARTIAL THROMBOPLASTIN TIME 61.8 seconds 22.5-36.0 H (BEAKER) (test code = 760) PROTHROMBIN TIME/[id number] 05:42:00 Test Item Value Reference Range Interpretation [...] H : TESTED A T [facility] 6720 (BEAKER) (test code = [facility] Paul [facility], 1538) 79864: Front End Specialist/Techni kush ID = [id number] for AN BENITA ERNANDEZ [id number] 22:49:00 Test Item Value Reference Range Interpretation Comments PARTIAL THROMBOPLASTIN TIME 86.0 seconds 22.5-36.0 H (BEAKER) (test code = 760) [id number] 15:29:00 Test Item Value Reference Range Interpretation [...] INR is2.5-3.5 for patients wiht mechanical heart valves.[id number] 15:29:00 Test Item Value Reference Range Interpretation Comments PARTIAL THROMBOPLASTIN TIME 90.0 seconds 22.5-36.0 H (BEAKER) (test code = 760) BASIC METABOLIC [id number] 12:20:00 Test Item Value Reference Range Interpretation [...] S NOT APPLICABLE FOR DIALYSIS PATIEN TS. Front End Specialist ID - ANTONIA FCBC W/PLT COUNT & AUTO [id number] 07:29:00 Test Item Value Reference Range Interpretation [...] 0-1 PERCENT (BEAKER) (test code = 2801) [id number] 07:20:00 Test Item Value Reference Range Interpretation Comments PARTIAL THROMBOPLASTIN TIME 61.2 seconds 22.5-36.0 H (BEAKER) (test code = 760) While on warfarin.BASIC METABOLIC [id number] 07:06:00 Test Item Value Reference Range Interpretation [...] S NOT APPLICABLE FOR DIALYSIS PATIEN TS. Front End Specialist ID - ANTONIA FPROTHROMBIN TIME/[id number] 06:37:00 Test Item Value Reference Range Interpretation [...] for patients wiht mechanical heart valves.While on warfarin.[id number] 23:03:00 Test Item Value Reference Range Interpretation Comments PARTIAL THROMBOPLASTIN TIME 54.4 seconds 22.5-36.0 H (BEAKER) (test code = 760) POCT-GLUCOSE [id number] 22:30:00 Test Item Value Reference Range Interpretation Comments POC-GLUCOSE METER 96 mg/dL 70-110 : TESTED A T [facility] 6720 (Marfeel) (test code = [facility] Paul [facility], 1538) 64078: Front End Specialist/Techni kush ID = [id number] for BENITA MASSEY POCT-GLUCOSE [id number] 15:59:00 Test Item Value Reference Range Interpretation Comments POC-GLUCOSE METER 133 mg/dL 70-110 H : TESTED A T [facility] 6720 (Marfeel) (test code = [facility] [place], 1538) 30125: Front End Specialist/Techni kush ID = [id number] for Phyllis Rao [id number] 15:38:00 Test Item Value Reference Range Interpretation Comments PARTIAL THROMBOPLASTIN TIME 88.8 seconds 22.5-36.0 H (BEAKER) (test code = 760) POCT-GLUCOSE [id number] 12:08:00 Test Item Value Reference Range Interpretation Comments POC-GLUCOSE METER 130 mg/dL 70-110 H : TESTED A T [facility] 6720 (BEAKER) (test code = [facility] [place], 1538) 973[address]: Front End Specialist/Techni kush ID = [id number] for Phyllis Rao PROTHROMBIN TIME/[id number] 11:48:00 Test Item Value Reference Range Interpretation [...] INR is2.5-3.5 for patients wiht mechanical heart valves.[id number] 09:34:00 Test Item Value Reference Range Interpretation Comments PARTIAL THROMBOPLASTIN TIME 74.6 seconds 22.5-36.0 H (BEAKER) (test code = 760) CBC W/PLT COUNT & AUTO [id number] 01:34:00 Test Item Value Reference Range Interpretation [...] (BEAKER) (test code = 2801) BASIC METABOLIC [id number] 01:29:00 Test Item Value Reference Range Interpretation [...] S NOT APPLICABLE FOR DIALYSIS PATIEN TS. Front End Specialist ID - PIAYA [id number] 01:13:00 Test Item Value Reference Range Interpretation Comments PARTIAL THROMBOPLASTIN TIME 56.4 seconds 22.5-36.0 H (BEAKER) (test code = 760) POCT-GLUCOSE [id number] 23:59:00 Test Item Value Reference Range Interpretation Comments POC-GLUCOSE METER 134 mg/dL 70-110 H : TESTED A T [facility] 6720 (BEAKER) (test code = [facility], 153) 05526: Front End Specialist/Techni kush ID = [id number] for NINA OSEISCOOTER [id number] 18:52:00 Test Item Value Reference Range Interpretation Comments PARTIAL THROMBOPLASTIN TIME 47.3 seconds 22.5-36.0 H (BEAKER) (test code = 760) [id number] 18:18:00 Test Item Value Reference Range Interpretation Comments PARTIAL THROMBOPLASTIN TIME > seconds 22.5-36.0 HH (BEAKER) (test code = 760) POCT-GLUCOSE [id number] 18:15:00 Test Item Value Reference Range Interpretation Comments POC-GLUCOSE METER 143 mg/dL 70-110 H : TESTED A T [facility] 6720 (BEAKER) (test code = [facility] [employer] [facility], 153) 97700: Front End Specialist/Techni kush ID = [id number] for RANDI WESLEY POCT-GLUCOSE [id number] 12:15:00 Test Item Value Reference Range Interpretation Comments POC-GLUCOSE METER 123 mg/dL 70-110 H : TESTED A T [facility] 6720 (BEAKER) (test code = MARIA GNV Humberto [facility], 1538) 81559: Front End Specialist/Techni kush ID = [id number] for RANDI WESLEY [id number] 11:28:00 Test Item Value Reference Range Interpretation Comments PARTIAL THROMBOPLASTIN TIME 57.3 seconds 22.5-36.0 H (BEAKER) (test code = 760) POCT-GLUCOSE [id number] 06:49:00 Test Item Value Reference Range Interpretation Comments POC-GLUCOSE METER 86 mg/dL 70-110 : TESTED A T [facility] 6720 (BEAKER) (test code = F[facility] Paul [facility], 1538) 08135: Front End Specialist/Techni kush ID = [id number] for SCOOTER MAYA BASIC METABOLIC [id number] 06:19:00 Test Item Value Reference Range Interpretation [...] S NOT APPLICABLE FOR DIALYSIS PATIEN TS. Front End Specialist ID - PIAYA LCBC W/PLT COUNT & AUTO [id number] 04:57:00 Test Item Value Reference Range Interpretation [...] PERCENT (BEAKER) (test code = 2801) POCT-GLUCOSE [id number] 02:25:00 Test Item Value Reference Range Interpretation Comments POC-GLUCOSE METER 69 mg/dL 70-110 L : TESTED A T [facility] 6720 (BEAKER) (test code = MARIA GNV Humberto [facility], 1538) 62156: Front End Specialist/Techni kush ID = [id number] for RADHA PEREZ, FLUORO, NON-SPECIFIC, UP TO 1 [id number] 01:47:00Reason for exam:- >orif right femurFluoroscopic unit utilized for a procedure performed in the OR. No interpretation was requested. Refer to the operative report for findings. Refer to PACS for patient radiation dose information.[id number] 20:21:00 Test Item Value Reference Range Interpretation Comments PARTIAL THROMBOPLASTIN TIME 41.1 seconds 22.5-36.0 H (BEAKER) (test code = 760) 6 hours after starting heparin infusion and as indicated per sliding scalePOCT- GLUCOSE [id number] 17:57:00 Test Item Value Reference Range Interpretation Comments POC-GLUCOSE METER 82 mg/dL 70-110 : [facility]Marfeel[facility] (test code = [facility] Humberto [facility], 1538) 49538: Front End Specialist/Techni kush ID = [id number] for ALMA DELIA PATHAK [id number] 17:14:00 Test Item Value Reference Range Interpretation Comments FERRITIN (BEAKER) (test code = 5182.19 ng/mL 5.00-275.00 H 361) Front End Specialist ID - JOEL BEASLEY, TIBC, % SAT. (WITHOUT FERRITIN)2020-02-27 16:01:00 Test Item Value Reference Range Interpretation Comments IRON (BEAKER) (test code = 547) 125.0 ug/dL 40.0-160.0 TOTAL IRON BINDING CAPACITY 219 ug/dL 250-450 L (BEAKER) (test code = 769) IRON % SATURATION (2) (BEAKER) 57 % 20-55 H (test code = 2590) Front End Specialist ID - JOEL [id number] 12:54:00 Test Item Value Reference Range Interpretation Comments PARTIAL THROMBOPLASTIN TIME 41.5 seconds 22.5-36.0 H (BEAKER) (test code = 760) Prior to initiating heparinPLATELET [id number] 12:51:00 Test Item Value Reference Range Interpretation Comments PLATELET COUNT (BEAKER) (test 116 K/CU MM 150-450 L code = 756) Front End Specialist ID - HeydiNo clotSARS-COV2/RT-PCR ([facility])2020-02-27 12:46:00 Test Item Value Reference Range Interpretation Comments SARS-COV2/RT-PCR (test code = Negative Not Detected, Negative 8440500) SARS-COV-[address] [facility] (test code = 2325178) Negative result for this test determines that [...] 564(g) of the Act.Fact Sheet for Healthcare Providers:https://www.Rentelligenceidel.com/sites/default/files/product/documents/Fact_Shee g_IZ_Ajkntsgws_Pbrn_YBVZ-CiF-5.pdfFact Sheet for Healthcare Patients:https://www.[employer].com/sites/default/files/product/ documents/Nuca_Zlvpv_Fexitlid_Hadq_SKDX-VjK-8.pdfPerforming Laboratory:[facility], [place] [address]PJBH-SCZRMWR METER 2020-02-27 12:12:00 Test Item Value Reference Range Interpretation Comments POC-GLUCOSE METER 90 mg/dL 70-110 : TESTED A T [facility] 6720 (JARROD) (test code = FOSTER Paul [facility], 1538) 05148: Front End Specialist/Techni kush ID = [id number] for SELENA BIRCH HEPATITIS B SURFACE [id number] 11:32:00 Test Item Value Reference Range Interpretation Comments HEPATITIS B SURFACE ANTIGEN (2) Nonreactive Nonreactive (BEAKER) (test code = 2585) Specimen is considered negative for HBsAg.RAD, WRIST, 2 VIEWS, [id number] 09:19:00Reason for exam:->fall, immbolityFINAL REPORT TECHNIQUE: Frontal, oblique, and lateral views of the left wrist. INDICATION: Fall immobility. COMPARISON: None. FINDINGS:No acute fractures or dislocations.Joint spaces are within normal limits.There are atherosclerotic calcifications of the vessels. Surgical clipsproject over the distal radius.. IMPRESSION:No acute osseous abnormality. Signed: Bhavin Artis Verified Date/Time: 02/27/2020 09:19:08 Reading Location: [address] Body ReadingRoom [id number] 08:30:00 Test Item Value Reference Range Interpretation Comments POTASSIUM (JARROD) (test code = 5.0 meq/L 3.5-5.1 379) Front End Specialist ID - PIAYA LRAD, PELVIS, 1 OR 2 [id number] 07:23:00Reason for exam:->femoral neck fxFINAL REPORT RAD, [...] ileoileal lines are intact. Signed: Radha Lisa MDRglen Verified Date/Time: 02/27/2020 07:23:52 Reading Location: [address] Neuro Reading Room RAD, HIP, 2 VIEWS, [id number] 07:23:00Reason for exam:- >femoral neck fractureFINAL REPORT [...] Lisa Verified Date/Time: 02/27/2020 07:23:52 Reading Location: [address] Neuro Reading Room POCT-GLUCOSE [id number] 06:26:00 Test Item Value Reference Range Interpretation Comments POC-GLUCOSE METER 72 mg/dL 70-110 : TESTED A T [facility] 6720 (BEAKER) (test code = FOSTER Humberto [facility], 1538) 01025: Front End Specialist/Techni kush ID = [id number] for SCOOTER MAYA COMPREHENSIVE METABOLIC [id number] 02:44:00 Test Item Value Reference Range Interpretation [...] S NOT APPLICABLE FOR DIALYSIS PATIEN TS. Front End Specialist JOSE ODEN LPROTHROMBIN TIME/[id number] 02:03:00 Test Item Value Reference Range Interpretation [...] INR is2.5-3.5 for patients wiht mechanical heart valves.[id number] 01:56:00 Test Item Value Reference Range Interpretation Comments PHOSPHORUS (BEAKER) (test code = 7.3 mg/dL 2.3-4.7 H 604) Front End Specialist JOSE ODEN [id number] 01:56:00 Test Item Value Reference Range Interpretation Comments MAGNESIUM (BEAKER) (test code = 1.9 mg/dL 1.6-2.6 627) Front End Specialist JOSE ODEN LCBC W/PLT COUNT & AUTO [id number] 01:33:00 Test Item Value Reference Range Interpretation [...] 417) IMMATURE GRANULOCYTES-RELATIVE 0 % 0-1 PERCENT ([facility]) (test code = 2801) AFB CULTURE + [id number] 07:33:00 Test Item Value Reference Range Interpretation Comments CULTURE ([facility]) (test No acid-fast bacilli code = 1095) isolated in 42 days AFB SMEAR ([facility]) No acid fast bacilli (test code = 994) seen FUNGUS CULTURE + [id number] 17:26:00 Test Item Value Reference Range Interpretation Comments CULTURE ([facility]) (test No fungus isolated in code = 1095) 28 days FUNGUS SMEAR ([facility]) No fungi seen (test code = 1406) PROTHROMBIN [id number] 00:05:00 Test Item Value Reference Range Interpretation Comments PT PATIENT (test code = PTP) 18.2 SECONDS 9.3-12.9 H INTERNATIONAL NORMAL RATIO 1.57 INR Unit 0.8-1.2 H (test code = INR) POCT-GLUCOSE [id number] 13:35:00 Test Item Value Reference Range Interpretation Comments POC-GLUCOSE METER 116 mg/dL 70-110 H TESTED AT [place] [address] ([facility]) (test code = FOSTER Paul [facility] 1538) [address] POCT-GLUCOSE [id number] 08:54:00 Test Item Value Reference Range Interpretation Comments POC-GLUCOSE METER 99 mg/dL 70-110 TESTED AT [place] [address] ([facility]) (test code = FOSTER Paul [facility] [address] 1538) [id number] 06:34:00 Test Item Value Reference Range Interpretation Comments PARTIAL THROMBOPLASTIN TIME 46.7 seconds 22.5-36.0 H ([facility]) (test code = 760) While on warfarin.PROTHROMBIN TIME/[id number] 06:33:00 Test Item Value Reference Range Interpretation Comments PROTIME ([facility]) (test code = 26.5 seconds 11.7-14.7 H 759) INR ([facility]) (test code = 370) 2.6 [...] code = 756) MEAN PLATELET VOLUME ([facility]) 9.2 fL 9.4-12.4 L (test code = 754) NUCLEATED RED BLOOD CELLS 1 /100 WBC 0-0 H ([facility]) (test code = 413) POCT-GLUCOSE [id number] 21:38:00 Test Item Value Reference Range Interpretation Comments POC-GLUCOSE METER 192 mg/dL 70-110 H TESTED AT [place] [address] ([facility]) (test code = [facility] 1538) [address] POCT-GLUCOSE [id number] 13:01:00 Test Item Value Reference Range Interpretation Comments POC-GLUCOSE METER 200 mg/dL 70-110 H TESTED AT [place] [address] ([facility]) (test code = [facility] 1538) 86001 POCT-GLUCOSE [id number] 08:00:00 Test Item Value Reference Range Interpretation Comments POC-GLUCOSE METER 123 mg/dL 70-110 H TESTED AT [place] [address] ([facility]) (test code = [facility] 1538) [address] [id number] 06:40:00 Test Item Value Reference Range Interpretation Comments PARTIAL THROMBOPLASTIN TIME 83.1 seconds 22.5-36.0 H ([facility]) (test code = 760) [id number] 05:54:00 Test Item Value Reference Range Interpretation Comments PARTIAL THROMBOPLASTIN TIME > seconds 22.5-36.0 HH ([facility]) (test code = 760) PROTHROMBIN TIME/[id number] 05:30:00 Test Item Value Reference Range Interpretation Comments PROTIME ([facility]) (test code = 24.1 seconds 11.7-14.7 H 759) INR ([facility]) (test code = 370) 2.3 [...] (BEAKER) (test code = 413) BASIC METABOLIC [id number] 05:10:00 Test Item Value Reference Range Interpretation [...] APPLICABLE FOR DIALYSIS PATIEN TS. OCCULT BLOOD, [id number] 23:46:00 Test Item Value Reference Range Interpretation Comments FECAL OCCULT BLOOD (JARROD) (test Negative Negative code = 618) POCT-GLUCOSE [id number] 22:52:00 Test Item Value Reference Range Interpretation Comments POC-GLUCOSE METER 192 mg/dL 70-110 H TESTED AT [place] [address] ([facility]) (test code = [facility] 1538) [address] POCT-GLUCOSE [id number] 17:11:00 Test Item Value Reference Range Interpretation Comments POC-GLUCOSE METER 149 mg/dL 70-110 H TESTED AT [place] [address] ([facility]) (test code = [facility] 1538) [address] PROTHROMBIN TIME/[id number] 13:00:00 Test Item Value Reference Range Interpretation Comments PROTIME ([facility]) (test code = 19.9 seconds 11.7-14.7 H 759) INR ([facility]) (test code = 370) 1.8 <=5.9 RECOMMENDED COUMADIN/WARFARIN INR THERAPY RANGESSTANDARD DOSE: 2.0 - 3.0 Includes: PROPHYLAXIS forvenous thrombosis, systemic embolization; TREATMENT for venous thrombosis and/or pulmonary embolus.HIGH RISK: Target INR is 2.5-3.5 for patients with mechanical heart valves.While on warfarin.POCT-GLUCOSE METER 2019-01-04 12:14:00 Test Item Value Reference Range Interpretation Comments POC-GLUCOSE METER 134 mg/dL 70-110 H TESTED AT [place] [address] ([facility]) (test code = [facility] 1538) [address] RAD, CHEST, 1 VIEW, NON [id number] 08:02:00Reason for exam:->Post opShould this be performed [...] MDReport Verified Date/Time: 01/04/2019 08:02:18 Reading Location: [facility] B1 C013W Consult Reading Room Electronicallysigned by: EDENILSON BLOOM M.D. on 01/04/2019 08:02 AMPOCT-GLUCOSE [id number] 07:42:00 Test Item Value Reference Range Interpretation Comments POC-GLUCOSE METER 98 mg/dL 70-[address] [facility] 6720 (BEAKER) (test code = FOSTER Paul [facility] [address] 1538) BASIC METABOLIC [id number] 07:28:00 Test Item Value Reference Range Interpretation [...] BLOOD CELLS 1 /100 WBC 0-0 H (AKER) (test code = 413) [id number] 06:08:00 Test Item Value Reference Range Interpretation Comments PARTIAL THROMBOPLASTIN TIME 70.6 seconds 22.5-36.0 H ([facility]) (test code = 760) [id number] 23:32:00 Test Item Value Reference Range Interpretation Comments PARTIAL THROMBOPLASTIN TIME 77.2 seconds 22.5-36.0 H ([facility]) (test code = 760) POCT-GLUCOSE [id number] 21:55:00 Test Item Value Reference Range Interpretation Comments POC-GLUCOSE METER 150 mg/dL 70-[address] [facility] 6720 ([facility]) (test code = [place] 1538) [address] [id number] 18:25:00 Test Item Value Reference Range Interpretation Comments PARTIAL THROMBOPLASTIN TIME 71.2 seconds 22.5-36.0 H ([facility]) (test code = 760) POCT-GLUCOSE [id number] 13:45:00 Test Item Value Reference Range Interpretation Comments POC-GLUCOSE METER 375 mg/dL 70-110 H Notified R Toy PÉREZ/TESTED ([facility]) (test code = AT [facility] [address] JOSE ANTONIO [facility]8) [facility] [address] 0 [id number] 10:26:00 Test Item Value Reference Range Interpretation Comments PARTIAL THROMBOPLASTIN TIME 94.0 seconds 22.5-36.0 H (JARROD) (test code = 760) While on warfarin.PROTHROMBIN TIME/[id number] 10:24:00 Test Item Value Reference Range Interpretation [...] mg/dL 70-[address] [facility] 6720 (JARROD) (test code = [place] 1538) [address] RAD, CHEST, 1 VIEW, NON [id number] 08:19:00Reason for exam:->Post opShould this be performed [...] Lisa Verified Date/Time: 01/03/2019 08:19:51 Reading Location: [address] Neuro Reading Room [id number] 03:31:00 Test Item Value Reference Range Interpretation Comments PARTIAL THROMBOPLASTIN TIME 64.2 seconds 22.5-36.0 H (JARROD) (test code = 760) BASIC METABOLIC [id number] 03:21:00 Test Item Value Reference Range Interpretation Comments SODIUM (JARROD) 132 meq/L 136-145 L (test code = [...] CELLS 1 /100 WBC 0-0 H ([facility]) (test code = 413) POCT-GLUCOSE [id number] 22:54:00 Test Item Value Reference Range Interpretation Comments POC-GLUCOSE METER 206 mg/dL 70-110 H TESTED AT [place] [address] ([facility]) (test code = FOSTER Paul [facility] 1538) [address] [id number] 19:36:00 Test Item Value Reference Range Interpretation Comments PARTIAL THROMBOPLASTIN TIME 79.3 seconds 22.5-36.0 H ([facility]) (test code = 760) POCT-GLUCOSE [id number] 17:59:00 Test Item Value Reference Range Interpretation Comments POC-GLUCOSE METER 186 mg/dL 70-110 H TESTED AT [place] [address] ([facility]) (test code = FOSTER [place] [facility] 1538) [address] POCT-GLUCOSE [id number] 13:54:00 Test Item Value Reference Range Interpretation Comments POC-GLUCOSE METER 139 mg/dL 70-110 H TESTED AT [place] [address] ([facility]) (test code = F[place]ER [place] [facility] 1538) [address] POCT-GLUCOSE [id number] 13:05:00 Test Item Value Reference Range Interpretation Comments POC-GLUCOSE METER 163 mg/dL 70-110 H TESTED AT [place] [address] ([facility]) (test code = [facility]ER [place] [facility] 1538) [address] [id number] 12:49:00 Test Item Value Reference Range Interpretation Comments PARTIAL THROMBOPLASTIN TIME 64.9 seconds 22.5-36.0 H ([facility]) (test code = 760) OCCULT BLOOD, [id number] 12:31:00 Test Item Value Reference Range Interpretation Comments FECAL OCCULT BLOOD ([facility]) (test Negative Negative code = 618) RAD, CHEST, 1 VIEW, NON [id number] 10:37:00Reason for exam:->Post opShould this be performed [...] Verified Date/Time: 01/02/2019 10:37:35 Reading Loc ation: [facility] [place] [facility] Reading Room POCT-GLUCOSE [id number] 08:07:00 Test Item Value Reference Range Interpretation Comments POC-GLUCOSE METER 107 mg/dL 70-[address] [facility] 6720 (BEAKER) (test code = [place] 1538) [address] [id number] 04:48:00 Test Item Value Reference Range Interpretation Comments PARTIAL THROMBOPLASTIN TIME 106.0 seconds 22.5-36.0 H ([facility]) (test code = 760) While on warfarin.BASIC METABOLIC [id number] 04:48:00 Test Item Value Reference Range Interpretation [...] NOT APPLICABLE FOR DIALYSIS PATIEN TS. PROTHROMBIN TIME/[id number] 04:39:00 Test Item Value Reference Range Interpretation [...] 0-0 (BEAKER) (test code = 413) POCT-GLUCOSE [id number] 22:17:00 Test Item Value Reference Range Interpretation Comments POC-GLUCOSE METER 117 mg/dL 70-[address] [facility] 6720 (BEAKER) (test code = [facility] [place] 1538) [address] RAD, CHEST, 1 VIEW, NON [id number] 19:40:00Reason for exam:->Post opShould this be performed [...] are clear. IMPRESSION: No interval change. Signed: Eednilson Bloom MDReport Verified Date/Time: 01/01/2019 19:40:01 Reading Location: [facility] C013W Consult Reading Room POCT-GLUCOSE [id number] 18:22:00 Test Item Value Reference Range Interpretation Comments POC-GLUCOSE METER 159 mg/dL 70-110 H TESTED AT [place] [address] ([facility]) (test code = [facility] 1538) [address] POCT-GLUCOSE [id number] 14:12:00 Test Item Value Reference Range Interpretation Comments POC-GLUCOSE METER 135 mg/dL 70-110 H TESTED AT [place] [address] ([facility]) (test code = [facility] 1538) [address] HEPATITIS B SURFACE [id number] 11:52:00 Test Item Value Reference Range Interpretation Comments HEPATITIS B SURFACE ANTIGEN (2) Nonreactive Nonreactive ([facility]) (test code = 2585) POCT-GLUCOSE [id number] 08:40:00 Test Item Value Reference Range Interpretation Comments POC-GLUCOSE METER 85 mg/dL 70-110 TESTED AT [place] [address] ([facility]) (test code = [facility] [address] 1538) BASIC METABOLIC [id number] 04:17:00 Test Item Value Reference Range Interpretation [...] S NOT APPLICABLE FOR DIALYSIS PATIEN TS. [id number] 03:40:00 Test Item Value Reference Range Interpretation Comments PARTIAL THROMBOPLASTIN TIME 84.1 seconds 22.5-36.0 H (BEAKER) (test code = 760) While on warfarin.PROTHROMBIN TIME/[id number] 03:39:00 Test Item Value Reference Range Interpretation [...] 753) MEAN CORPUSCULAR HEMOGLOBIN 31.9 pg 25.7-32.2 ([facility]) (test code = 751) MEAN CORPUSCULAR HEMOGLOBIN CONC 31.6 GM/DL 32.3-36.5 L ([facility]) (test code = 752) RED CELL DISTRIBUTION WIDTH 15.9 % 11.6-14.4 H ([facility]) (test code = 412) PLATELET COUNT ([facility]) (test 186 K/CU MM 150-450 code = 756) MEAN PLATELET VOLUME ([facility]) 9.0 fL 9.4-12.4 L (test code = 754) NUCLEATED RED BLOOD CELLS 0 /100 WBC 0-0 ([facility]) (test code = 413) POCT-GLUCOSE [id number] 22:08:00 Test Item Value Reference Range Interpretation Comments POC-GLUCOSE METER 194 mg/dL 70-110 H TESTED AT [place] [address] ([facility]) (test [facility] = [facility] 1538) [address] POCT-GLUCOSE [id number] 22:03:00 Test Item Value Reference Range Interpretation Comments POC-GLUCOSE METER 203 mg/dL 70-110 H TESTED AT [place] [address] ([facility]) (test code = [facility] 1538) [address] POCT-GLUCOSE [id number] 21:42:00 Test Item Value Reference Range Interpretation Comments POC-GLUCOSE METER 42 mg/dL 70-110 L TESTED AT [place] [address] ([facility]) (test code = [facility] [address] 1538) [id number] 21:35:00 Test Item Value Reference Range Interpretation Comments PARTIAL THROMBOPLASTIN TIME 80.4 seconds 22.5-36.0 H ([facility]) (test code = 760) POCT-GLUCOSE [id number] 18:03:00 Test Item Value Reference Range Interpretation Comments POC-GLUCOSE METER 144 mg/dL 70-110 H TESTED AT [place] [address] ([facility]) (test code = [facility] Humberto [facility] 1538) [address] TISSUE [id number] 16:33:00Surgical Pathology Report Case: [id number] Authorizing Provider: Enmanuel Sharma Collected: 12/26/2018 [facility]7 MD Liban OrderingLocation: [facility] 11 [facility] Received: 12/29/2018 0814 Service Pathologist: Brigida [...] stains. GMSImmunohistochemistry technical testing was performed at [facility], Pathology Laboratory where it was developed [...] toperform high complexity clinical laboratory testing.CPT CODE: [id number] electronically signed by Brigida Parks MD on [...] ARE NEGATIVE Signing Pathologist Direct Phone Line: [phone] signed by Brigida Parks MD on 12/30/2018 at 6:43 PMPreliminary result electronically signed by Brigida Parks MD on 12/29/2018 at 4:54 [id number] X 2; 68439; 80554; [id number] X 2Upper endoscopy, biopsyPreoperative and postoperative diagnosis: [...] AND CMVImmunohistochemistry technical testing was performed at [facility], Pathology Laboratory where it was developed [...] qualified toperform high complexity clinical laboratory testing.POCT-GLUCOSE [id number] 13:57:00 Test Item Value Reference Range Interpretation Comments POC-GLUCOSE METER 178 mg/dL 70-[address] [facility] 6720 ([facility]) (test code = FOSTER Paul [facility] 1538) [address] [id number] 12:54:00 Test Item Value Reference Range Interpretation Comments PARTIAL THROMBOPLASTIN TIME 69.4 seconds 22.5-36.0 H ([facility]) (test code = 760) RAD, CHEST, 1 VIEW, NON [id number] 09:26:00Reason for exam:->Post opShould this be performed [...] MDReport Verified Date/Time: 12/31/2018 09:26:31 Reading Location: [facility] Reading Room POCT-GLUCOSE [id number] 09:01:00 Test Item Value Reference Range Interpretation Comments POC-GLUCOSE METER 162 mg/dL 70-[address] [facility] 6720 (BEAKER) (test code = FOSTER Paul [facility] 1538) [address] BASIC METABOLIC [id number] 06:50:00 Test Item Value Reference Range Interpretation [...] NOT APPLICABLE FOR DIALYSIS PATIEN TS. PROTHROMBIN TIME/[id number] 06:38:00 Test Item Value Reference Range Interpretation Comments PROTIME (BEAKER) (test code = 19.1 seconds 11.7-14.7 H 759) INR (BEAKER) (test code = 370) 1.7 <=5.9 RECOMMENDED COUMADIN/WARFARIN INR THERAPY RANGESSTANDARD DOSE: 2.0 - 3.0 Includes: PROPHYLAXIS forvenous thrombosis, systemic embolization; TREATMENT for venous thrombosis and/or pulmonary embolus.HIGH RISK: Target INR is 2.5-3.5 for patients with mechanical heart valves.While on warfarin.[id number] 06:37:00 Test Item Value Reference Range Interpretation [...] 0-0 (BEAKER) (test code = 413) POCT-GLUCOSE [id number] 00:45:00 Test Item Value Reference Range Interpretation Comments POC-GLUCOSE METER 124 mg/dL 70-[address] [facility] 6720 (AKER) (test code = [facility] 1538) [address] [id number] 19:14:00 Test Item Value Reference Range Interpretation Comments PARTIAL THROMBOPLASTIN TIME 57.8 seconds 22.5-36.0 H (BEAKER) (test code = 760) POCT-GLUCOSE [id number] 17:53:00 Test Item Value Reference Range Interpretation Comments POC-GLUCOSE METER 133 mg/dL 70-[address] [facility] 6720 (BEAKER) (test code = FOSTER Paul [facility] 1538) [address] POCT-GLUCOSE [id number] 13:19:00 Test Item Value Reference Range Interpretation Comments POC-GLUCOSE METER 147 mg/dL 70-[address] [facility] 6720 (BEAKER) (test code = FOSTER Paul [facility] 1538) [address] [id number] 12:43:00 Test Item Value Reference Range Interpretation Comments PARTIAL THROMBOPLASTIN TIME 57.0 seconds 22.5-36.0 H (BEAKER) (test code = 760) [id number] 10:17:00 Test Item Value Reference Range Interpretation Comments PARTIAL THROMBOPLASTIN TIME 134.5 seconds 22.5-36.0 H (BEAKER) (test code = 760) POCT-GLUCOSE [id number] 07:43:00 Test Item Value Reference Range Interpretation Comments POC-GLUCOSE METER 107 mg/dL 70-110 TESTED AT [place] [address] (BEAKER) (test code = MARIA GNV Humberto [facility] 1538) [address] BASIC METABOLIC [id number] 06:46:00 Test Item Value Reference Range Interpretation [...] PATIEN TS. RAD, CHEST, 1 VIEW, NON [id number] 06:25:00Reason for exam:->Post opShould this be performed [...] Lisa Verified Date/Time: 12/30/2018 06:25:51 Reading Location: [address] Neuro Reading Room PROTHROMBIN TIME/[id number] 06:06:00 Test Item Value Reference Range Interpretation [...] 753) MEAN CORPUSCULAR HEMOGLOBIN 32.1 pg 25.7-32.2 ([facility]) (test code = 751) MEAN CORPUSCULAR HEMOGLOBIN CONC 32.2 GM/DL 32.3-36.5 L ([facility]) (test code = 752) RED CELL DISTRIBUTION WIDTH 15.5 % 11.6-14.4 H ([facility]) (test code = 412) PLATELET COUNT ([facility]) (test 139 K/CU MM 150-450 L code = 756) MEAN PLATELET VOLUME ([facility]) 9.1 fL 9.4-12.4 L (test code = 754) NUCLEATED RED BLOOD CELLS 0 /100 WBC 0-0 ([facility]) (test code = 413) POCT-GLUCOSE [id number] 22:19:00 Test Item Value Reference Range Interpretation Comments POC-GLUCOSE METER 179 mg/dL 70-110 H TESTED AT [place] [address] ([facility]) (test code = FOSTER Paul [facility] 1538) [address] POCT-GLUCOSE [id number] 17:39:00 Test Item Value Reference Range Interpretation Comments POC-GLUCOSE METER 181 mg/dL 70-110 H TESTED AT [place] [address] ([facility]) (test code = FOSTER Paul [facility] 1538) [address]15 POCT-GLUCOSE [id number] 13:14:00 Test Item Value Reference Range Interpretation Comments POC-GLUCOSE METER 102 mg/dL 70-110 TESTED AT [place] [address] ([facility]) (test code = MARIA GNV Humberto [facility] 1538) [address] RAD, CHEST, 1 VIEW, NON [id number] 08:56:00Reason for exam:->Post opShould this be performed [...] MDReport Verified Date/Time: 12/29/2018 08:56:32 Reading Location: [facility] Reading Room Electronically signed by: EDENILSON BLOOM M.D.on 12/29/2018 08:56 AMPOCT-GLUCOSE [id number] 07:53:00 Test Item Value Reference Range Interpretation Comments POC-GLUCOSE METER 135 mg/dL 70-[address] [facility] 6720 (BEAKER) (test code = [place] 1538) [address] [id number] 06:45:00 Test Item Value Reference Range Interpretation Comments PARTIAL THROMBOPLASTIN TIME 83.5 seconds 22.5-36.0 H (BEAKER) (test code = 760) While on warfarin.PROTHROMBIN TIME/[id number] 06:44:00 Test Item Value Reference Range Interpretation [...] WBC 0-0 (BEAKER) (test code = 413) [id number] 00:01:00 Test Item Value Reference Range Interpretation Comments PARTIAL THROMBOPLASTIN TIME 78.5 seconds 22.5-36.0 H (BEAKER) (test code = 760) POCT-GLUCOSE [id number] 21:26:00 Test Item Value Reference Range Interpretation Comments POC-GLUCOSE METER 139 mg/dL 70-[address] [facility] 6720 ([facility]) (test code = [facility] [place] 1538) [address] POCT-GLUCOSE [id number] 17:58:00 Test Item Value Reference Range Interpretation Comments POC-GLUCOSE METER 146 mg/dL 70-110 H TESTED AT [place] [id number] ([facility]) (test code = [place] 1538) [address] [id number] 17:16:00 Test Item Value Reference Range Interpretation Comments PARTIAL THROMBOPLASTIN TIME 34.5 seconds 22.5-36.0 ([facility] (test code = 760) Prior to initiating heparinPOCT-GLUCOSE [id number] 12:54:00 Test Item Value Reference Range Interpretation Comments POC-GLUCOSE METER 133 mg/dL 70-[address] [facility] 6720 ([facility]) (test code = [place] 1538) [address] RAD, CHEST, 1 VIEW, NON [id number] 08:06:00Reason for exam:->Post opShould this be performed at the bedside?->YesFINAL REPORT Chest one view. Clinical history: Post op Comparison: 12/27/2018 Discussion: A frontal chest is provided. Cardiomediastinal contours are unchanged. Lines and tubesare in stable position. Unchanged right-sided pleural-parenchymal opacities. Left lung is grossly clear. Vessels do not appear engorged. No pneumothorax. Signed: Dionicio Chery Verified Date/Time: 12/28/2018 08:06:07 Reading Location: [address] Neuro Reading Room BASIC METABOLIC [id number] 06:52:00 Test Item Value Reference Range Interpretation [...] NOT APPLICABLE FOR DIALYSIS PATIEN TS. PROTHROMBIN [id number] 06:31:00 Test Item Value Reference Range Interpretation [...] 0-0 (BEAKER) (test code = 413) POCT-GLUCOSE [id number] 21:41:00 Test Item Value Reference Range Interpretation Comments POC-GLUCOSE METER 163 mg/dL 70-[address] [facility] 6720 ([facility]) (test code = [place] 1538) [address] POCT-GLUCOSE [id number] 17:23:00 Test Item Value Reference Range Interpretation Comments POC-GLUCOSE METER 119 mg/dL 70-[address] [facility] 6720 ([facility]) (test code = FOSTER Paul [facility] 1538) [address] RAD, CHEST, 1 VIEW, NON [id number] 14:49:00Reason for exam:->Post opShould this be performed [...] MDReport Verified Date/Time: 12/27/2018 14:49:48 Reading Location: [address] Ortho Consult Reading Room ANG, NON-TUNNELED CATH >5 Y.O. [id number] 14:17:00Reason for exam:->Central line placement, poor access, [...] guide wire was advanced centrally. A 7 Israeli 20 cm triple lumen catheter was advanced [...] Sykes Verified Date/Time: 12/27/2018 14:17:02 Reading Location: [place] [address] Angio Body Reading Room [id number] 13:44:00 Test Item Value Reference Range Interpretation Comments PARTIAL THROMBOPLASTIN TIME 44.3 seconds 22.5-36.0 H ([facility]) (test code = 760) Prior to initiating heparinPOCT-GLUCOSE [id number] 13:27:00 Test Item Value Reference Range Interpretation Comments POC-GLUCOSE METER 127 mg/dL 70-110 H TESTED AT [place] [address] ([facility]) (test code = [facility] 1538) [address] POCT-GLUCOSE [id number] 08:58:00 Test Item Value Reference Range Interpretation Comments POC-GLUCOSE METER 79 mg/dL 70-110 TESTED AT [place] [id number] ([facility]) (test code = [facility] [address] 1538) BASIC METABOLIC [id number] 07:09:00 Test Item Value Reference Range Interpretation [...] NOT APPLICABLE FOR DIALYSIS PATIEN TS. PROTHROMBIN TIME/[id number] 06:52:00 Test Item Value Reference Range Interpretation [...] (BEAKER) (test code = 412) PLATELET COUNT ([facility]) (test code 90 K/CU MM 150-450 L = 756) MEAN PLATELET VOLUME ([facility]) 9.1 fL 9.4-12.4 L (test code = 754) NUCLEATED RED BLOOD CELLS ([facility]) 0 /100 WBC 0-0 (test code = 413) POCT-GLUCOSE [id number] 23:54:00 Test Item Value Reference Range Interpretation Comments POC-GLUCOSE METER 73 mg/dL 70-110 TESTED AT [place] [address] ([facility]) (test code = [facility] [address] 1538) POCT-GLUCOSE [id number] 16:02:00 Test Item Value Reference Range Interpretation Comments POC-GLUCOSE METER 108 mg/dL 70-110 TESTED AT [place] [address] ([facility]) (test code = [facility] 1538) [address] POCT-GLUCOSE [id number] 15:24:00 Test Item Value Reference Range Interpretation Comments POC-GLUCOSE METER 74 mg/dL 70-110 TESTED AT [place] [address] ([facility]) (test code = [facility] [address] 1538) POCT-GLUCOSE [id number] 10:29:00 Test Item Value Reference Range Interpretation Comments POC-GLUCOSE METER 88 mg/dL 70-110 TESTED AT [place] [address] ([facility]) (test code = [facility] [address] 1538) RAD, CHEST, 1 VIEW, NON [id number] 07:33:00Reason for exam:->Post opShould this be performed [...] MDReport Verified Date/Time: 12/26/2018 07:33:38 Reading Location: [facility] Reading Room BASIC METABOLIC [id number] 06:42:00 Test Item Value Reference Range Interpretation [...] 0-0 H (test code = 413) PROTHROMBIN TIME/[id number] 05:44:00 Test Item Value Reference Range Interpretation Comments PROTIME (BEAKER) (test code = 24.4 seconds 11.7-14.7 H 759) INR (BEAKER) (test code = 370) 2.2 <=5.9 RECOMMENDED COUMADIN/WARFARIN INR THERAPY RANGESSTANDARD DOSE: 2.0 - 3.0 Includes: PROPHYLAXIS forvenous thrombosis, systemic embolization; TREATMENT for venous thrombosis and/or pulmonary embolus.HIGH RISK: Target INR is 2.5-3.5 for patients with mechanical heart valves.POCT-GLUCOSE [id number] 00:06:00 Test Item Value Reference Range Interpretation Comments POC-GLUCOSE METER 88 mg/dL 70-110 TESTED AT [place] [address] ([facility]) (test code = FOSTER Paul [facility] [address] 1538) POCT-GLUCOSE [id number] 19:06:00 Test Item Value Reference Range Interpretation Comments POC-GLUCOSE METER 121 mg/dL 70-110 H TESTED AT [place] [address] ([facility]) (test code = FOSTER Paul [facility] 1538) [address] PROTHROMBIN [id number] 16:10:00 Test Item Value Reference Range Interpretation Comments PROTIME (BEAKER) (test code = 30.1 seconds 11.7-14.7 H 759) INR (BEAKER) (test code = 370) 2.9 <=5.9 RECOMMENDED COUMADIN/WARFARIN INR THERAPY RANGESSTANDARD DOSE: 2.0 - 3.0 Includes: PROPHYLAXIS forvenous thrombosis, systemic embolization; TREATMENT for venous thrombosis and/or pulmonary embolus.HIGH RISK: Target INR is 2.5-3.5 for patients with mechanical heart valves.BASIC METABOLIC [id number] 16:10:00 Test Item Value Reference Range Interpretation [...] S NOT APPLICABLE FOR DIALYSIS PATIEN TS. [id number] 16:09:00 Test Item Value Reference Range Interpretation [...] 0-0 H (test code = 413) POCT-GLUCOSE [id number] 08:03:00 Test Item Value Reference Range Interpretation Comments POC-GLUCOSE METER 89 mg/dL 70-[address] [facility] 6720 ([facility]) (test code = [place] [address] 1538) RAD, CHEST, 1 VIEW, NON [id number] 07:46:00Reason for exam:->Post opShould this be performed at the bedside?->YesFINAL REPORT Chest one view. Clinical history: Post op Comparison: 12/24/2018 Discussion: A frontal chest is provided. Cardiomediastinal contours are unchanged. Stable appearance of pleural-parenchymal opacity at the right mid to lower lung. There is a tiny right apical pneumothorax, unchanged. Probable trace left effusion. Signed: Dionicio Chery Verified Date/Time: 07:46:01 Reading Location: [facility] Reading Room RAD, ABDOMEN/KUB, 1 VIEW [id number] 07:25:00Reason for exam:->abdominal distentionShould this be performed [...] Chery Verified Date/Time: 12/25/2018 07:25:40 Reading Location: [facility] Reading Room POCT-GLUCOSE [id number] 22:06:00 Test Item Value Reference Range Interpretation Comments POC-GLUCOSE METER 102 mg/dL 70-[address] [facility] 67 ([facility]) (test code = FOSTER Paul [place] 1538) [address] POCT-GLUCOSE [id number] 18:44:00 Test Item Value Reference Range Interpretation Comments POC-GLUCOSE METER 100 mg/dL 70-[address] [facility] 6720 ([facility]) (test code = FOSTER Paul [facility] 1538) [address] POCT-GLUCOSE [id number] 14:54:00 Test Item Value Reference Range Interpretation Comments POC-GLUCOSE METER 103 mg/dL 70-110 TESTED AT [place] [address] ([facility]) (test code = FOSTER Paul [facility] 1538) [address] [id number] 08:07:00 Test Item Value Reference Range Interpretation Comments FERRITIN ([facility]) (test code = 2044 ng/mL 5-275 H 361) POCT-GLUCOSE [id number] 07:57:00 Test Item Value Reference Range Interpretation Comments POC-GLUCOSE METER 76 mg/dL 70-110 TESTED AT [place] [address] ([facility]) (test code = FOSTER Paul [facility] [address] 1538) RAD, CHEST, 1 VIEW, NON [id number] 07:57:00Reason for exam:->Post opShould this be performed [...] H (test code = 413) BASIC METABOLIC [id number] 07:14:00 Test Item Value Reference Range Interpretation [...] S NOT APPLICABLE FOR DIALYSIS PATIEN TS. [id number] 07:08:00 Test Item Value Reference Range Interpretation [...] % 20-55 (test code = 2590) PROTHROMBIN TIME/[id number] 07:05:00 Test Item Value Reference Range Interpretation Comments PROTIME (BEAKER) (test code = 38.7 seconds 11.7-14.7 H 759) INR (BEAKER) (test code = 370) 3.9 <=5.9 RECOMMENDED COUMADIN/WARFARIN INR THERAPY RANGESSTANDARD DOSE: 2.0 - 3.0 Includes: PROPHYLAXIS forvenous thrombosis, systemic embolization; TREATMENT for venous thrombosis and/or pulmonary embolus.HIGH RISK: Target INR is 2.5-3.5 for patients with mechanical heart valves.POCT-GLUCOSE [id number] 00:26:00 Test Item Value Reference Range Interpretation Comments POC-GLUCOSE METER 86 mg/dL 70-110 TESTED AT [place] [address] ([facility]) (test code = [facility] [address] 1538) POCT-GLUCOSE [id number] 00:26:00 Test Item Value Reference Range Interpretation Comments POC-GLUCOSE METER 137 mg/dL 70-110 H TESTED AT [place] [address] ([facility]) (test [facility] = [facility] 1538) [address] POCT-GLUCOSE [id number] 16:07:00 Test Item Value Reference Range Interpretation Comments POC-GLUCOSE METER 72 mg/dL 70-110 TESTED AT [place] [address] ([facility]) (test code = [facility] [address] 1538) POCT-GLUCOSE [id number] 16:07:00 Test Item Value Reference Range Interpretation Comments POC-GLUCOSE METER 61 mg/dL 70-110 L TESTED AT [place] [address] ([facility]) (test code = [facility] [address] 1538) POCT-GLUCOSE [id number] 11:27:00 Test Item Value Reference Range Interpretation Comments POC-GLUCOSE METER 82 mg/dL 70-[address] [facility] 6720 (BEAKER) (test code = FOSTER Paul [facility] [address] 1538) POCT-GLUCOSE [id number] 10:32:00 Test Item Value Reference Range Interpretation Comments POC-GLUCOSE METER 43 mg/dL 70-[address] [facility] 6720 (BEAKER) (test code = FOSTER Paul [facility] [address] 1538) BASIC METABOLIC [id number] 07:28:00 Test Item Value Reference Range Interpretation [...] S NOT APPLICABLE FOR DIALYSIS PATIEN TS. [id number] 07:24:00 Test Item Value Reference Range Interpretation Comments MAGNESIUM (BEAKER) 2.0 mg/dL 1.6-2.6 Specimen slightly (test code = 627) hemolyzed [id number] 07:24:00 Test Item Value Reference Range Interpretation Comments PHOSPHORUS (BEAKER) 4.4 mg/dL 2.3-4.7 Specimen slightly (test code = 604) hemolyzed PROTHROMBIN TIME/[id number] 07:20:00 Test Item Value Reference Range Interpretation [...] = 413) RAD, CHEST, 1 VIEW, NON [id number] 04:22:00Reason for exam:->Post opShould this be performed [...] [place] Verified Date/Time: 12/23/2018 04:22:43 Reading Location: [facility] C013Y CT Body Reading Room POCT-GLUCOSE [id number] 03:01:00 Test Item Value Reference Range Interpretation Comments POC-GLUCOSE METER 85 mg/dL 70-[address] [facility] 6720 (BEAKER) (test code = [facility] [id number]) BASIC METABOLIC [id number] 18:52:00 Test Item Value Reference Range Interpretation [...] H (BEAKER) (test code = 413) ANAEROBIC [id number] 17:00:00 Test Item Value Reference Range Interpretation Comments CULTURE (BEAKER) (test No anaerobes isolated code = 1095) RAD, CHEST, 1 VIEW, NON [id number] 07:44:00Reason for exam:->Post opShould this be performed [...] Arteaga Verified Date/Time: 12/22/2018 07:44:12 Reading Location: [facility]iology Reading Room PROTHROMBIN [id number] 04:31:00 Test Item Value Reference Range Interpretation [...] METER 141 mg/dL 70-110 H TESTED AT [place] [address] (JARROD) (test code = FOSTER Paul [facility] 1538) [address] POCT-GLUCOSE [id number] 13:22:00 Test Item Value Reference Range Interpretation Comments POC-GLUCOSE METER 100 mg/dL 70-110 TESTED AT [place] [address] ([facility]) (test code = [place]OSTER Paul [facility] 1538) [address] RAD, CHEST, 1 VIEW, NON [id number] 08:01:00Reason for exam:->Post opShould this be performed [...] Lisa Verified Date/Time: 12/21/2018 08:01:46 Reading Location: [facility] C013 Neuro Reading Room PROTHROMBIN TIME/[id number] 05:30:00 Test Item Value Reference Range Interpretation [...] 98 mg/dL 70-110 TESTED AT [place] [address] ([facility]) (test code = [place] Paul [facility] [address] 1538) POCT-GLUCOSE [id number] 17:40:00 Test Item Value Reference Range Interpretation Comments POC-GLUCOSE METER 91 mg/dL 70-110 TESTED AT [place] [address] ([facility]) (test code = [facility] [address] 1538) POCT-GLUCOSE [id number] 13:13:00 Test Item Value Reference Range Interpretation Comments POC-GLUCOSE METER 73 mg/dL 70-110 TESTED AT [place] [address] ([facility]) (test code = [facility] Humberto [facility] [address] 1538) SURGICALLY OBTAINED CULTURE + GRAM [id number] 08:41:00 Test Item Value Reference Range Interpretation Comments CULTURE (BEAKER) (test No growth code = 1095) GRAM STAIN RESULT No White blood cells (BEAKER) (test code = seen 1123) GRAM STAIN RESULT No organisms seen (BEAKER) (test code = 23168) RAD, CHEST, 1 VIEW, NON [id number] 08:20:00Reason for exam:->Post opShould this be performed [...] Lisaeport Verified Date/Time: 12/20/2018 08:20:58 Reading Location: [address] Neuro Reading Room BASIC METABOLIC [id number] 08:09:00 Test Item Value Reference Range Interpretation [...] S NOT APPLICABLE FOR DIALYSIS PATIEN TS. [id number] 08:00:00 Test Item Value Reference Range Interpretation Comments PHOSPHORUS (BEAKER) (test code = 4.5 mg/dL 2.3-4.7 604) CALCIUM, [id number] 07:20:00 Test Item Value Reference Range Interpretation Comments CALCIUM IONIZED (BEAKER) (test 1.04 mmol/L 1.12-1.27 L code = 698) PH, BLOOD (BEAKER) (test code = 7.35 1810) PROTHROMBIN [id number] 07:04:00 Test Item Value Reference Range Interpretation [...] 0-0 (BEAKER) (test code = 413) POCT-GLUCOSE [id number] 22:00:00 Test Item Value Reference Range Interpretation Comments POC-GLUCOSE METER 188 mg/dL 70-[address] [facility] 6720 (BEAKER) (test code = F[place]ER [place] 1538) [address] TISSUE [id number] 18:15:00Surgical Pathology Report Case: [id number] Authorizing Provider: Moiz Vargas, Collected: 12/17/2018 0950 Ordering Location: [facility] Received: 12/17/2018 1129 PERIOPERATIVE SERVICES Pathologist: Kwan Perla MD Specimen: Pleural, Right, RIGHT PLEURAL PEEL PLEURA, RIGHT, DECORTICATION- MILD CHRONIC INFLAMMATION AND GRANULATION TISSUE- ORGANIZING BLOOD CLOTS- NO MALIGNANT CELLS IDENTIFIED Signing Pathologist Direct Phone Line: [phone] signed by Kwan Perla MD on 12/19/2018 at 6:15 PMCorrelation with microbiology cultures is recommended.25080Xaufznf effusion and other conditions classified elsewhereRight pleural peelThe specimen is received in a formalin-filled container labeled with the patient's information and labeled "right pleural peel" and consists of multiple fragments of porter-red, dusky, firm tissue measuring 6 x 5 x 0.4 cm in aggregate. Automotive Welder sections are submitted in A1-A3. CG/ew Performed.POCT-GLUCOSE [id number] 17:11:00 Test Item Value Reference Range Interpretation Comments POC-GLUCOSE METER 126 mg/dL 70-110 H TESTED AT [place] [address] ([facility]) (test code = [facility] 1538) [address] POCT-GLUCOSE [id number] 12:57:00 Test Item Value Reference Range Interpretation Comments POC-GLUCOSE METER 143 mg/dL 70-110 H TESTED AT [place] [address] ([facility]) (test code = [facility] 1538) [address] POCT-GLUCOSE [id number] 07:27:00 Test Item Value Reference Range Interpretation Comments POC-GLUCOSE METER 141 mg/dL 70-110 H TESTED AT [place] [address] ([facility]) (test code = [facility] 1538) [address] CALCIUM, [id number] 06:29:00 Test Item Value Reference Range Interpretation Comments CALCIUM IONIZED ([facility]) (test 1.00 mmol/L 1.12-1.27 L code = 698) PH, BLOOD ([facility]) (test code = 7.45 1810) RAD, CHEST, 1 VIEW, NON [id number] 04:54:00Reason for exam:->Post opShould this be performed [...] MDReport Verified Date/Time: 2018 04:54:49 Reading Location: [address] Body Reading Room BASIC METABOLIC [id number] 04:19:00 Test Item Value Reference Range Interpretation [...] S NOT APPLICABLE FOR DIALYSIS PATIEN TS. [id number] 04:16:00 Test Item Value Reference Range Interpretation Comments PHOSPHORUS (BEAKER) (test code = 3.4 mg/dL 2.3-4.7 604) PROTHROMBIN [id number] 04:06:00 Test Item Value Reference Range Interpretation [...] 0-0 (BEAKER) (test code = 413) POCT-GLUCOSE [id number] 22:11:00 Test Item Value Reference Range Interpretation Comments POC-GLUCOSE METER 149 mg/dL 70-110 H TESTED AT [place] [address] ([facility]) (test code = [facility] 1538) [address] POCT-GLUCOSE [id number] 17:52:00 Test Item Value Reference Range Interpretation Comments POC-GLUCOSE METER 122 mg/dL 70-110 H TESTED AT [place] [address] ([facility]) (test code = [facility] 1538) [address] POCT-GLUCOSE [id number] 14:26:00 Test Item Value Reference Range Interpretation Comments POC-GLUCOSE METER 98 mg/dL 70-110 TESTED AT [place] [address] ([facility]) (test code = [facility] [address] 1538) HEMOGLOBIN AND [id number] 12:47:00 Test Item Value Reference Range Interpretation Comments HEMOGLOBIN (AKER) (test code = 9.2 GM/DL 13.7-17.5 L 410) HEMATOCRIT ([facility]) (test code = 28.3 % 40.1-51.0 L 411) POCT-GLUCOSE [id number] 09:38:00 Test Item Value Reference Range Interpretation Comments POC-GLUCOSE METER 73 mg/dL 70-110 TESTED AT [place] [address] ([facility]) (test code = [facility] [address] 1538) PROTEIN ELECTROPHORESIS, [id number] 09:21:00 Test Item Value Reference Range Interpretation [...] of chronic inflammation. No monoclonal bands detected. [id number] Amanda De Jesus MD (BEAKER) (test code = (electronic signature) 2617) PROTEIN TOTAL SERUM, 7.5 gm/dL 6.0-8.3 SPEP (BEAKER) (test code = 2660) RAD, CHEST, 1 VIEW, NON [id number] 06:47:00Reason for exam:->Post opShould this be performed [...] MDReport Verified Date/Time: 12/18/2018 06:47:21 Reading Location: [address] Body Reading Room [id number] 06:20:00 Test Item Value Reference Range Interpretation Comments MAGNESIUM (BEAKER) (test code = 2.2 mg/dL 1.6-2.6 627) CALCIUM, [id number] 06:00:00 Test Item Value Reference Range Interpretation Comments CALCIUM IONIZED (BEAKER) (test 1.09 mmol/L 1.12-1.27 L code = 698) PH, BLOOD (BEAKER) (test code = 7.34 1810) BASIC METABOLIC [id number] 05:07:00 Test Item Value Reference Range Interpretation [...] S NOT APPLICABLE FOR DIALYSIS PATIEN TS. [id number] 04:54:00 Test Item Value Reference Range Interpretation Comments PHOSPHORUS (BEAKER) (test code = 6.3 mg/dL 2.3-4.7 H 604) HEPATIC FUNCTION [id number] 04:54:00 Test Item Value Reference Range Interpretation [...] (test code = 23 U/L 6-55 347) [id number] 04:51:00 Test Item Value Reference Range Interpretation Comments PARTIAL THROMBOPLASTIN TIME 38.6 seconds 22.5-36.0 H (BEAKER) (test code = 760) PROTHROMBIN [id number] 04:50:00 Test Item Value Reference Range Interpretation Comments PROTIME (BEAKER) (test code = 16.0 seconds 11.7-14.7 H 759) INR (BEAKER) (test code = 370) 1.3 <=5.9 RECOMMENDED COUMADIN/WARFARIN INR THERAPY RANGESSTANDARD DOSE: 2.0 - 3.0 Includes: PROPHYLAXIS forvenous thrombosis, systemic embolization; TREATMENT for venous thrombosis and/or pulmonary embolus.HIGH RISK: Target INR is 2.5-3.5 for patients with mechanical heart valves.[id number] 04:50:00 Test Item Value Reference Range Interpretation Comments FIBRINOGEN LEVEL (BEAKER) (test 494 mg/dl 225-434 H code = 658) PLATELET [id number] 04:38:00 Test Item Value Reference Range Interpretation [...] WBC 0-0 (BEAKER) (test code = 413) [id number] 18:48:00 Test Item Value Reference Range Interpretation Comments MAGNESIUM (BEAKER) (test code = 2.4 mg/dL 1.6-2.6 627) POCT-GLUCOSE [id number] 18:42:00 Test Item Value Reference Range Interpretation Comments POC-GLUCOSE METER 121 mg/dL 70-[address] [facility] 6720 (BEAKER) (test code = [place] 1538) [address] HEMOGLOBIN AND [id number] 18:37:00 Test Item Value Reference Range Interpretation Comments HEMOGLOBIN (BEAKER) (test code = 10.0 GM/DL 13.7-17.5 L 410) HEMATOCRIT (BEAKER) (test code = 31.3 % 40.1-51.0 L 411) RAD, CHEST, 1 VIEW, NON [id number] 13:28:00Reason for exam:->post opShould this be performed [...] Verified Date/Time: 12/17/2018 13:28:23 Reading Location: [facility] [id number] 13:03:00 Test Item Value Reference Range Interpretation [...] S NOT APPLICABLE FOR DIALYSIS PATIEN TS. [id number] 12:53:00 Test Item Value Reference Range Interpretation Comments PHOSPHORUS (BEAKER) (test code = 4.3 mg/dL 2.3-4.7 604) [id number] 12:53:00 Test Item Value Reference Range Interpretation Comments MAGNESIUM (BEAKER) (test code = 1.5 mg/dL 1.6-2.6 L 627) LACTIC ACID, [id number] 12:50:00 Test Item Value Reference Range Interpretation Comments LACTATE BLOOD ARTERIAL (2) 0.9 mmol/L 0.5-2.2 (BEAKER) (test code = 2874) CBC W/PLT COUNT & AUTO [id number] 12:47:00 Test Item Value Reference Range Interpretation [...] PERCENT (BEAKER) (test code = 2801) CALCIUM, [id number] 12:26:00 Test Item Value Reference Range Interpretation Comments CALCIUM IONIZED (BEAKER) (test 1.07 mmol/L 1.12-1.27 L code = 698) PH, BLOOD (BEAKER) (test code = 7.38 1810) BLOOD GAS, [id number] 12:26:00 Test Item Value Reference Range Interpretation [...] (test code = 1819) 40.0 % CALCIUM, [id number] 10:25:00 Test Item Value Reference Range Interpretation Comments CALCIUM IONIZED (BEAKER) (test 1.09 mmol/L 1.12-1.27 L code = 698) PH, BLOOD (BEAKER) (test code = 7.45 1810) BLOOD GAS, [id number] 10:22:00 Test Item Value Reference Range Interpretation [...] code = 1819) 96.0 % SODIUM NA-STAT [id number] 10:22:00 Test Item Value Reference Range Interpretation Comments SODIUM (BEAKER) (test code = 381) 133 meq/L 135-148 L GLUCOSE-STAT [id number] 10:22:00 Test Item Value Reference Range Interpretation Comments GLUCOSE RANDOM (BEAKER) (test code 116 mg/dL 70-110 H = 652) HGB/HCT (H&H) - STAT [id number] 10:22:00 Test Item Value Reference Range Interpretation Comments HEMOGLOBIN (BEAKER) (test code = 8.9 g/dL 13.0-16.8 L 410) HEMATOCRIT (BEAKER) (test code = 26.0 % 40.0-50.0 L 411) POTASSIUM-STAT [id number] 10:20:00 Test Item Value Reference Range Interpretation Comments POTASSIUM (BEAKER) (test code = 4.0 meq/L 3.6-5.5 379) HEMOGLOBIN [id number] 09:33:00 Test Item Value Reference Range Interpretation Comments HEMOGLOBIN A1C (BEAKER) (test code = 5.9 % 4.3-6.1 368) BLOOD GAS, [id number] 09:27:00 Test Item Value Reference Range Interpretation [...] code = 1819) 100.0 % SODIUM NA-STAT [id number] 09:27:00 Test Item Value Reference Range Interpretation Comments SODIUM (BEAKER) (test code = 381) 133 meq/L 135-148 L HGB/HCT (H&H) - STAT [id number] 09:27:00 Test Item Value Reference Range Interpretation Comments HEMOGLOBIN (BEAKER) (test code = 9.4 g/dL 13.0-16.8 L 410) HEMATOCRIT (BEAKER) (test code = 28.0 % 40.0-50.0 L 411) GLUCOSE-STAT [id number] 09:26:00 Test Item Value Reference Range Interpretation Comments GLUCOSE RANDOM (BEAKER) (test code = 97 mg/dL 70-110 652) POTASSIUM-STAT [id number] 09:26:00 Test Item Value Reference Range Interpretation Comments POTASSIUM (BEAKER) (test code = 3.9 meq/L 3.6-5.5 379) CALCIUM, [id number] 09:26:00 Test Item Value Reference Range Interpretation Comments CALCIUM IONIZED (BEAKER) (test 1.17 mmol/L 1.12-1.27 code = 698) PH, BLOOD (BEAKER) (test code = 7.44 1810) BLOOD GAS, [id number] 08:32:00 Test Item Value Reference Range Interpretation [...] code = 1819) 96.0 % SODIUM NA-STAT [id number] 08:32:00 Test Item Value Reference Range Interpretation Comments SODIUM (BEAKER) (test code = 381) 133 meq/L 135-148 L GLUCOSE-STAT [id number] 08:32:00 Test Item Value Reference Range Interpretation Comments GLUCOSE RANDOM (BEAKER) (test code 113 mg/dL 70-110 H = 652) HGB/HCT (H&H) - STAT [id number] 08:32:00 Test Item Value Reference Range Interpretation Comments HEMOGLOBIN (BEAKER) (test code = 9.9 g/dL 13.0-16.8 L 410) HEMATOCRIT (BEAKER) (test code = 29.0 % 40.0-50.0 L 411) CALCIUM, [id number] 08:31:00 Test Item Value Reference Range Interpretation Comments CALCIUM IONIZED (BEAKER) (test 1.05 mmol/L 1.12-1.27 L code = 698) PH, BLOOD (BEAKER) (test code = 7.49 1810) POTASSIUM-STAT [id number] 08:29:00 Test Item Value Reference Range Interpretation Comments POTASSIUM (BEAKER) (test code = 3.6 meq/L 3.6-5.5 379) POCT-GLUCOSE [id number] 06:20:00 Test Item Value Reference Range Interpretation Comments POC-GLUCOSE METER 99 mg/dL 70-[address] [facility] 6720 (BEAKER) (test code = [place] [address] 1538) [id number] 05:05:00 Test Item Value Reference Range Interpretation Comments PARTIAL THROMBOPLASTIN TIME 75.6 seconds 22.5-36.0 H ([facility]) (test code = 760) LIPID [id number] 05:04:00 Test Item Value Reference Range Interpretation Comments TRIGLYCERIDES (BEAKER) (test code = 53 mg/dL 540) CHOLESTEROL (BEAKER) (test code = 122 mg/dL 631) HDL CHOLESTEROL (AKER) (test code 58 mg/dL = 976) LDL CHOLESTEROL CALCULATED ([facility]) 53 mg/dL (test code = 633) Triglyceride Reference Range: Low Risk <150 Borderline 150-199 High Risk 200-499 Very High Risk >=500Cholesterol Reference Range: Low Risk <200 Borderline 200-239 High Risk >240HDL Cholesterol Reference Range: Low Risk >=60 High Risk <40LDL Cholesterol Reference Range: Optimal <100 Near Optimal 100-129 Borderline 130-159 High 160-189 Very High >=190PROTHROMBIN [id number] 05:03:00 Test Item Value Reference Range Interpretation Comments PROTIME (JARROD) (test code = 15.4 seconds 11.7-14.7 H 759) INR ([facility]) (test code = 370) 1.2 <=5.9 RECOMMENDED COUMADIN/WARFARIN INR THERAPY RANGESSTANDARD DOSE: 2.0 - 3.0 Includes: PROPHYLAXIS forvenous thrombosis, systemic embolization; TREATMENT for venous thrombosis and/or pulmonary embolus.HIGH RISK: Target INR is 2.5-3.5 for patients with mechanical heart valves.POCT-GLUCOSE [id number] 21:17:00 Test Item Value Reference Range Interpretation Comments POC-GLUCOSE METER 223 mg/dL 70-[address] [facility] 6720 ([facility]) (test code = [place] 1538) [address] COMPREHENSIVE METABOLIC [id number] 18:57:00 Test Item Value Reference Range Interpretation Comments TOTAL PROTEIN 7.8 gm/dL 6.0-8.3 (AKER) (test code = 770) ALBUMIN ([facility]) 3.1 g/dL 3.5-5.0 L (test code = 1145) ALKALINE PHOSPHATASE 80 U/L 40-150 (AKER) (test code = 346) BILIRUBIN TOTAL 0.9 [...] S NOT APPLICABLE FOR DIALYSIS PATIEN TS. [id number] 18:46:00 Test Item Value Reference Range Interpretation Comments MAGNESIUM (BEAKER) (test code = 1.8 mg/dL 1.6-2.6 627) CBC W/PLT COUNT & AUTO [id number] 18:10:00 Test Item Value Reference Range Interpretation [...] PERCENT (BEAKER) (test code = 2801) POCT-GLUCOSE [id number] 17:34:00 Test Item Value Reference Range Interpretation Comments POC-GLUCOSE METER 169 mg/dL 70-[address] [facility] 6720 (BEAKER) (test code = [place] 1538) [address] HEPARIN [id number] 13:40:00 Test Item Value Reference Range Interpretation Comments HEPARIN ANTIBODY (BEAKER) (test code Negative Negative = 646) HEPARIN ANTIBODY OD (BEAKER) (test 0.105 <0.400 code = 8179) 4T TOTAL SCORE (BEAKER) (test code = 4 2661) Probability of HIT based on scoring system: 6-8 = High probability; 4-5 = intermediate probability;0-3 = low probabilityPOCT-GLUCOSE [id number] 12:51:00 Test Item Value Reference Range Interpretation Comments POC-GLUCOSE METER 66 mg/dL 70-110 L Notified Humberto Yeager MD/TESTED AT ([facility]) (test code = [place] [address] JOSE ANTONIO 1538) [facility] 7703 0 POCT-GLUCOSE [id number] 07:54:00 Test Item Value Reference Range Interpretation Comments POC-GLUCOSE METER 75 mg/dL 70-110 TESTED AT [place] [address] ([facility]) (test code = [place] [facility] [address] 1538) [id number] 04:21:00 Test Item Value Reference Range Interpretation Comments PROTIME ([facility]) (test code = 15.4 seconds 11.7-14.7 H 759) INR ([facility]) (test code = 370) 1.2 <=5.9 PARTIAL THROMBOPLASTIN TIME 74.0 seconds 22.5-36.0 H ([facility]) (test code = 760) RECOMMENDED COUMADIN/WARFARIN INR THERAPY RANGESSTANDARD DOSE: 2.0 - 3.0 Includes: PROPHYLAXIS forvenous thrombosis, systemic embolization; TREATMENT for venous thrombosis and/or pulmonary embolus.HIGH RISK: Target INR is 2.5-3.5 for patients with mechanical heart valves.[id number] 04:20:00 Test Item Value Reference Range Interpretation Comments FIBRINOGEN LEVEL ([facility]) (test 525 mg/dl 225-434 H code = 658) POCT-GLUCOSE [id number] 21:25:00 Test Item Value Reference Range Interpretation Comments POC-GLUCOSE METER 129 mg/dL 70-110 H TESTED AT [place] [address] ([facility]) (test code = [place] [facility] 1538) [address] [id number] 18:23:00 Test Item Value Reference Range Interpretation Comments PARTIAL THROMBOPLASTIN TIME 72.0 seconds 22.5-36.0 H ([facility]) (test code = 760) POCT-GLUCOSE [id number] 16:20:00 Test Item Value Reference Range Interpretation Comments POC-GLUCOSE METER 142 mg/dL 70-110 H TESTED AT [place] [address] ([facility]) (test code = [place] [facility] 1538) [address] POCT-GLUCOSE [id number] 13:05:00 Test Item Value Reference Range Interpretation Comments POC-GLUCOSE METER 86 mg/dL 70-[address] [facility] 6720 ([facility]) (test code = [place] [facility] [address] 1538) [id number] 11:19:00 Test Item Value Reference Range Interpretation Comments PARTIAL THROMBOPLASTIN TIME 72.3 seconds 22.5-36.0 H ([facility]) (test code = 760) POCT-GLUCOSE [id number] 07:56:00 Test Item Value Reference Range Interpretation Comments POC-GLUCOSE METER 87 mg/dL 70-[address] [facility] 6720 ([facility]) (test code = [facility] Humberto [facility] [address] 1538) [id number] 03:13:00 Test Item Value Reference Range Interpretation Comments PARTIAL THROMBOPLASTIN TIME 97.1 seconds 22.5-36.0 H ([facility]) (test code = 760) PROTHROMBIN [id number] 03:11:00 Test Item Value Reference Range Interpretation Comments PROTIME ([facility]) (test code = 16.5 seconds 11.7-14.7 H 759) INR ([facility]) (test code = 370) 1.3 [...] MEAN CORPUSCULAR HEMOGLOBIN 33.9 pg 25.7-32.2 H (AKER) (test code = 751) MEAN CORPUSCULAR HEMOGLOBIN CONC 32.7 GM/DL 32.3-36.5 ([facility]) (test code = 752) RED CELL DISTRIBUTION WIDTH 14.9 % 11.6-14.4 H ([facility]) (test code = 412) PLATELET COUNT ([facility]) (test code 77 K/CU MM 150-450 L = 756) MEAN PLATELET VOLUME ([facility]) 8.9 fL 9.4-12.4 L (test code = 754) NUCLEATED RED BLOOD CELLS ([facility]) 0 /100 WBC 0-0 (test code = 413) POCT-GLUCOSE [id number] 21:26:00 Test Item Value Reference Range Interpretation Comments POC-GLUCOSE METER 121 mg/dL 70-110 H TESTED AT [place] [address] ([facility]) (test code = [place] [facility] 1538) [address] [id number] 19:05:00 Test Item Value Reference Range Interpretation Comments PARTIAL THROMBOPLASTIN TIME 64.0 seconds 22.5-36.0 H ([facility]) (test code = 760) POCT-GLUCOSE [id number] 17:24:00 Test Item Value Reference Range Interpretation Comments POC-GLUCOSE METER 131 mg/dL 70-110 H TESTED AT [place] [address] ([facility]) (test code = [place] 1538) [address] [id number] 13:32:00 Test Item Value Reference Range Interpretation Comments PARTIAL THROMBOPLASTIN TIME 81.4 seconds 22.5-36.0 H ([facility]) (test code = 760) POCT-GLUCOSE [id number] 12:32:00 Test Item Value Reference Range Interpretation Comments POC-GLUCOSE METER 102 mg/dL 70-110 TESTED AT [place] [address] ([facility]) (test code = [place] [facility] 1538) [address] POCT-GLUCOSE [id number] 07:07:00 Test Item Value Reference Range Interpretation Comments POC-GLUCOSE METER 113 mg/dL 70-110 H TESTED AT [place] [address] ([facility]) (test code = [place] 1538) [address] [id number] 05:47:00 Test Item Value Reference Range Interpretation Comments PARTIAL THROMBOPLASTIN TIME 91.8 seconds 22.5-36.0 H (BEAKER) (test code = 760) POCT-GLUCOSE [id number] 21:27:00 Test Item Value Reference Range Interpretation Comments POC-GLUCOSE METER 90 mg/dL 70-[address] [facility] [address] (BEAKER) (test code = [place] [facility] [id number] 1538) POCT-GLUCOSE [id number] 17:46:00 Test Item Value Reference Range Interpretation Comments POC-GLUCOSE METER 175 mg/dL 70-[address] [facility] [address] (BEAKER) (test code = [facility] Humberto [facility] 1538) [id number] POCT-GLUCOSE [id number] 17:30:00 Test Item Value Reference Range Interpretation Comments POC-GLUCOSE METER 84 mg/dL 70-[address] [facility] [address] (BEAKER) (test code = [place] [facility] [id number]38) [id number] 13:20:00 Test Item Value Reference Range Interpretation Comments PARTIAL THROMBOPLASTIN TIME 68.4 seconds 22.5-36.0 H (BEAKER) (test code = 760) BASIC METABOLIC [id number] 10:36:00 Test Item Value Reference Range Interpretation [...] NOT APPLICABLE FOR DIALYSIS PATIEN TS. POCT-GLUCOSE [id number] 07:43:00 Test Item Value Reference Range Interpretation Comments POC-GLUCOSE METER 84 mg/dL 70-[address] [facility] [address] ([facility]) (test code = [place] [address] 1538) [id number] 06:52:00 Test Item Value Reference Range Interpretation Comments PARTIAL THROMBOPLASTIN TIME 76.5 seconds 22.5-36.0 H (BEAKER) (test code = 760) PROTHROMBIN [id number] 06:51:00 Test Item Value Reference Range Interpretation [...] 0-1 PERCENT (BEAKER) (test code = 2801) [id number] 00:11:00 Test Item Value Reference Range Interpretation Comments PARTIAL THROMBOPLASTIN TIME 59.7 seconds 22.5-36.0 H (BEAKER) (test code = 760) POCT-GLUCOSE [id number] 21:33:00 Test Item Value Reference Range Interpretation Comments POC-GLUCOSE METER 113 mg/dL 70-[address] [facility] 67 ([facility]) (test code = [place] 1538) [address] POCT-GLUCOSE [id number] 18:08:00 Test Item Value Reference Range Interpretation Comments POC-GLUCOSE METER 128 mg/dL 70-[address] [facility] 6720 ([facility]) (test code = [place] 1538) [address] [id number] 16:51:00 Test Item Value Reference Range Interpretation Comments PARTIAL THROMBOPLASTIN TIME 71.6 seconds 22.5-36.0 H (BEAKER) (test code = 760) POCT-GLUCOSE [id number] 12:39:00 Test Item Value Reference Range Interpretation Comments POC-GLUCOSE METER 124 mg/dL 70-[address] [facility] 6720 ([facility]) (test code = [place] 1538) [address] [id number] 09:07:00 Test Item Value Reference Range Interpretation Comments PARTIAL THROMBOPLASTIN TIME 96.6 seconds 22.5-36.0 H (BEAKER) (test code = 760) POCT-GLUCOSE [id number] 07:48:00 Test Item Value Reference Range Interpretation Comments POC-GLUCOSE METER 105 mg/dL 70-[address] [facility] 6720 ([facility]) (test code = [place] 1538) [address] BASIC METABOLIC [id number] 01:54:00 Test Item Value Reference Range Interpretation [...] S NOT APPLICABLE FOR DIALYSIS PATIEN TS. [id number] 01:37:00 Test Item Value Reference Range Interpretation Comments PARTIAL THROMBOPLASTIN TIME 53.4 seconds 22.5-36.0 H (BEAKER) (test code = 760) PROTHROMBIN [id number] 01:36:00 Test Item Value Reference Range Interpretation [...] IMMATURE GRANULOCYTES-RELATIVE 1 % 0-1 PERCENT ([facility]) (test code = 2801) POCT-GLUCOSE [id number] 21:57:00 Test Item Value Reference Range Interpretation Comments POC-GLUCOSE METER 165 mg/dL 70-110 H TESTED AT [place] [address] ([facility]) (test code = [place] [facility] 1538) [address] [id number] 18:46:00 Test Item Value Reference Range Interpretation Comments PARTIAL THROMBOPLASTIN TIME 39.0 seconds 22.5-36.0 H ([facility]) (test code = 760) POCT-GLUCOSE [id number] 17:51:00 Test Item Value Reference Range Interpretation Comments POC-GLUCOSE METER 157 mg/dL 70-110 H TESTED AT [place] [address] ([facility]) (test [facility] = [facility] 1538) [address] POCT-GLUCOSE [id number] 17:09:00 Test Item Value Reference Range Interpretation Comments POC-GLUCOSE METER 162 mg/dL 70-110 H TESTED AT [place] [address] ([facility]) (test code = [facility] [place] 1538) [address] [id number] 16:07:00 Test Item Value Reference Range Interpretation Comments PARTIAL THROMBOPLASTIN TIME 117.0 seconds 22.5-36.0 H ([facility]) (test code = 760) POCT-GLUCOSE [id number] 13:28:00 Test Item Value Reference Range Interpretation Comments POC-GLUCOSE METER 88 mg/dL 70-110 TESTED AT [place] [address] ([facility]) (test code = [place] [address] 1538) [id number] 09:17:00 Test Item Value Reference Range Interpretation Comments PARTIAL THROMBOPLASTIN TIME 71.7 seconds 22.5-36.0 H ([facility]) (test code = 760) POCT-GLUCOSE [id number] 08:07:00 Test Item Value Reference Range Interpretation Comments POC-GLUCOSE METER 137 mg/dL 70-[address] [facility] 6720 (BEAKER) (test code = [place] 1538) [address] [id number] 02:27:00 Test Item Value Reference Range Interpretation Comments PARTIAL THROMBOPLASTIN TIME 62.4 seconds 22.5-36.0 H (BEAKER) (test code = 760) PROTHROMBIN [id number] 02:26:00 Test Item Value Reference Range Interpretation Comments PROTIME (BEAKER) (test code = 20.0 seconds 11.7-14.7 H 759) INR (BEAKER) (test code = 370) 1.7 <=5.9 RECOMMENDED COUMADIN/WARFARIN INR THERAPY RANGESSTANDARD DOSE: 2.0 - 3.0 Includes: PROPHYLAXIS forvenous thrombosis, systemic embolization; TREATMENT for venous thrombosis and/or pulmonary embolus.HIGH RISK: Target INR is 2.5-3.5 for patients with mechanical heart valves.BASIC METABOLIC [id number] 02:02:00 Test Item Value Reference Range Interpretation [...] S NOT APPLICABLE FOR DIALYSIS PATIRUBÉN TS. CBC W/PLT COUNT & AUTO [id number] 01:42:00 Test Item Value Reference Range Interpretation [...] IMMATURE GRANULOCYTES-RELATIVE 2 % 0-1 H PERCENT ([facility]) (test code = 2801) POCT-GLUCOSE [id number] 21:12:00 Test Item Value Reference Range Interpretation Comments POC-GLUCOSE METER 199 mg/dL 70-110 H TESTED AT [place] [address] ([facility]) (test code = [facility] 1538) [address] POCT-GLUCOSE [id number] 17:39:00 Test Item Value Reference Range Interpretation Comments POC-GLUCOSE METER 145 mg/dL 70-110 H TESTED AT [place] [address] ([facility]) (test code = [facility] [place] [facility] 1538) [address] [id number] 17:33:00 Test Item Value Reference Range Interpretation Comments PARTIAL THROMBOPLASTIN TIME 47.3 seconds 22.5-36.0 H ([facility]) (test code = 760) POCT-GLUCOSE [id number] 12:53:00 Test Item Value Reference Range Interpretation Comments POC-GLUCOSE METER 203 mg/dL 70-110 H TESTED AT [place] [address] ([facility]) (test code = [facility] 1538) [address] POCT-GLUCOSE [id number] 08:28:00 Test Item Value Reference Range Interpretation Comments POC-GLUCOSE METER 98 mg/dL 70-110 TESTED AT [place] [address] ([facility]) (test code = [facility] [place] [facility] [address] 1538) BASIC METABOLIC [id number] 05:52:00 Test Item Value Reference Range Interpretation [...] NOT APPLICABLE FOR DIALYSIS PATIEN TS. PROTHROMBIN [id number] 05:51:00 Test Item Value Reference Range Interpretation [...] PERCENT (BEAKER) (test code = 2801) POCT-GLUCOSE [id number] 20:54:00 Test Item Value Reference Range Interpretation Comments POC-GLUCOSE METER 126 mg/dL 70-110 H TESTED AT [place] [address] ([facility]) (test code = [facility] 1538) [address] POCT-GLUCOSE [id number] 18:47:00 Test Item Value Reference Range Interpretation Comments POC-GLUCOSE METER 70 mg/dL 70-110 TESTED AT [place] [address] ([facility]) (test code = [facility] [address]38) POCT-GLUCOSE [id number] 13:25:00 Test Item Value Reference Range Interpretation Comments POC-GLUCOSE METER 120 mg/dL 70-110 H TESTED AT [place] [address] ([facility]) (test code = [facility] 1538) [address] POCT-GLUCOSE [id number] 09:32:00 Test Item Value Reference Range Interpretation Comments POC-GLUCOSE METER 104 mg/dL 70-110 TESTED AT [place] [address] ([facility]) (test code = [facility] [place] [facility] 1538) [address] BASIC METABOLIC [id number] 05:59:00 Test Item Value Reference Range Interpretation [...] NOT APPLICABLE FOR DIALYSIS PATIEN TS. PROTHROMBIN [id number] 05:20:00 Test Item Value Reference Range Interpretation [...] PERCENT (BEAKER) (test code = 2801) POCT-GLUCOSE [id number] 21:14:00 Test Item Value Reference Range Interpretation Comments POC-GLUCOSE METER 200 mg/dL 70-[address] [facility] 6720 ([facility]) (test code = [place] 1538) [address] POCT-GLUCOSE [id number] 17:34:00 Test Item Value Reference Range Interpretation Comments POC-GLUCOSE METER 143 mg/dL 70-[address] [facility] 6720 ([facility]) (test code = [place] 1538) [address] POCT-GLUCOSE [id number] 12:04:00 Test Item Value Reference Range Interpretation Comments POC-GLUCOSE METER 160 mg/dL 70-[address] [facility] 6720 (BEAKER) (test code = [place] [facility] 1538) [address] POCT-GLUCOSE [id number] 08:08:00 Test Item Value Reference Range Interpretation Comments POC-GLUCOSE METER 154 mg/dL 70-[address] [facility] 6720 (BEAKER) (test code = [place] [facility] 1538) [address] BASIC METABOLIC [id number] 06:33:00 Test Item Value Reference Range Interpretation [...] S NOT APPLICABLE FOR DIALYSIS PATIEN TS. [id number] 06:01:00 Test Item Value Reference Range Interpretation Comments PARTIAL THROMBOPLASTIN TIME 117.2 seconds 22.5-36.0 H (BEAKER) (test code = 760) PROTHROMBIN [id number] 05:56:00 Test Item Value Reference Range Interpretation [...] code = 416) BASOPHILS ABSOLUTE COUNT ([facility]) 0.01 K/ L 0.01-0.08 (test code = 417) IMMATURE GRANULOCYTES-RELATIVE 1 % 0-1 PERCENT ([facility]) (test code = 2801) POCT-GLUCOSE [id number] 21:37:00 Test Item Value Reference Range Interpretation Comments POC-GLUCOSE METER 121 mg/dL 70-110 H TESTED AT [place] [address] ([facility]) (test code = [facility] 1538) [address] POCT-GLUCOSE [id number] 19:01:00 Test Item Value Reference Range Interpretation Comments POC-GLUCOSE METER 191 mg/dL 70-110 H TESTED AT [place] [address] ([facility]) (test code = [facility] 1538) [address] [id number] 18:31:00 Test Item Value Reference Range Interpretation Comments PARTIAL THROMBOPLASTIN TIME 86.2 seconds 22.5-36.0 H ([facility]) (test code = 760) POCT-GLUCOSE [id number] 13:05:00 Test Item Value Reference Range Interpretation Comments POC-GLUCOSE METER 130 mg/dL 70-110 H TESTED AT [place] [address] ([facility]) (test code = [facility] 1538) [address] RAD, CHEST, 1 VIEW, NON [id number] 12:22:00Reason for exam:->pleural effusionsShould this be performed [...] MDReport Verified Date/Time: 12/07/2018 12:22:50 Reading Location: [address] Neuro Reading Room [id number] 11:39:00 Test Item Value Reference Range Interpretation Comments PARTIAL THROMBOPLASTIN TIME 100.1 seconds 22.5-36.0 H (BEAKER) (test code = 760) BODY FLUID CULTURE + GRAM [id number] 10:13:00 Test Item Value Reference Range Interpretation Comments CULTURE (BEAKER) (test No growth code = 1095) GRAM STAIN RESULT <1+ White blood cells (BEAKER) (test code = seen 1123) GRAM STAIN RESULT No organisms seen (BEAKER) (test code = 49098) POCT-GLUCOSE [id number] 08:51:00 Test Item Value Reference Range Interpretation Comments POC-GLUCOSE METER 90 mg/dL 70-[address] [facility] 6720 (BEAKER) (test code = [place] [address] 1538) BASIC METABOLIC [id number] 07:31:00 Test Item Value Reference Range Interpretation [...] S NOT APPLICABLE FOR DIALYSIS PATIEN TS. [id number] 05:21:00 Test Item Value Reference Range Interpretation Comments PARTIAL THROMBOPLASTIN TIME 104.0 seconds 22.5-36.0 H (BEAKER) (test code = 760) PROTHROMBIN TIME/[id number] 04:50:00 Test Item Value Reference Range Interpretation [...] 0-1 PERCENT (BEAKER) (test code = 2801) [id number] 20:33:00 Test Item Value Reference Range Interpretation Comments PARTIAL THROMBOPLASTIN TIME 87.6 seconds 22.5-36.0 H (BEAKER) (test code = 760) POCT-GLUCOSE [id number] 19:30:00 Test Item Value Reference Range Interpretation Comments POC-GLUCOSE METER 112 mg/dL 70-[address] [facility] 67 (BEAKER) (test code = [place] [facility] 1538) [address] [id number] 13:55:00 Test Item Value Reference Range Interpretation Comments PARTIAL THROMBOPLASTIN TIME 85.9 seconds 22.5-36.0 H (BEAKER) (test code = 760) POCT-GLUCOSE [id number] 09:12:00 Test Item Value Reference Range Interpretation Comments POC-GLUCOSE METER 112 mg/dL 70-110 H TESTED AT [place] [address] ([facility]) (test code = [place] [facility] 1538) [address] BASIC METABOLIC [id number] 08:53:00 Test Item Value Reference Range Interpretation [...] S NOT APPLICABLE FOR DIALYSIS PATIEN TS. [id number] 06:04:00 Test Item Value Reference Range Interpretation Comments PARTIAL THROMBOPLASTIN TIME 105.5 seconds 22.5-36.0 H (BEAKER) (test code = 760) PROTHROMBIN TIME/[id number] 05:44:00 Test Item Value Reference Range Interpretation [...] (test code = 2801) CT, CHEST, WITHOUT [id number] 03:17:00FINAL REPORT EXAM: CT of the chest, [...] left pleural effusion with associated compressive atelectasis. Rjjyc-au-ndjlndza loculated right pleural effusion with pleural thickening [...] Taylor Verified Date/Time: 12/06/2018 03:17:03 Reading Location: [facility] C013Y CT Body Reading Room POCT-GLUCOSE [id number] 21:22:00 Test Item Value Reference Range Interpretation Comments POC-GLUCOSE METER 171 mg/dL 70-110 H TESTED AT [place] [address] ([facility]) (test code = [place] [facility] 1538) [address] POCT-GLUCOSE [id number] 17:58:00 Test Item Value Reference Range Interpretation Comments POC-GLUCOSE METER 128 mg/dL 70-110 H TESTED AT [place] [address] ([facility]) (test code = [place] [facility] 1538) [address] POCT-GLUCOSE [id number] 13:24:00 Test Item Value Reference Range Interpretation Comments POC-GLUCOSE METER 129 mg/dL 70-110 H TESTED AT [place] [address] ([facility]) (test code = [place] [facility] 1538) [address] LACTATE DEHYDROGENASE (LDH)2018-12-05 13:14:00 Test Item Value Reference Range Interpretation Comments LACTATE DEHYDROGENASE ([facility]) (test 291 U/L 125-220 H code = 635) [id number] 13:10:00 Test Item Value Reference Range Interpretation Comments PARTIAL THROMBOPLASTIN TIME 91.7 seconds 22.5-36.0 H (BEAKER) (test code = 760) POCT-GLUCOSE [id number] 08:19:00 Test Item Value Reference Range Interpretation Comments POC-GLUCOSE METER 106 mg/dL 70-[address] [facility] 6720 (BEAKER) (test code = [place] 1538) [address] BASIC METABOLIC [id number] 07:05:00 Test Item Value Reference Range Interpretation [...] S NOT APPLICABLE FOR DIALYSIS PATIEN TS. [id number] 06:32:00 Test Item Value Reference Range Interpretation [...] 2.5-3.5 for patients with mechanical heart valves.PROTHROMBIN TIME/[id number] 06:30:00 Test Item Value Reference Range Interpretation [...] 0-1 PERCENT (BEAKER) (test code = 2801) [id number] 00:40:00 Test Item Value Reference Range Interpretation Comments PARTIAL THROMBOPLASTIN TIME 63.1 seconds 22.5-36.0 H (BEAKER) (test code = 760) POCT-GLUCOSE [id number] 00:12:00 Test Item Value Reference Range Interpretation Comments POC-GLUCOSE METER 124 mg/dL 70-[address] [facility] 6720 (BEAKER) (test code = [place] 1538) [address] HEPATITIS B SURFACE [id number] 22:54:00 Test Item Value Reference Range Interpretation Comments HEPATITIS B SURFACE ANTIGEN (2) Nonreactive Nonreactive (BEAKER) (test code = 2585) For chronic HD patients, draw HBsAg with each admission then every 30 days.BODY FLUID CELL COUNT WITH [id number] 20:34:00 Test Item Value Reference Range Interpretation Comments APPEARANCE FLUID (BEAKER) (test Cloudy Clear A code = 510) COLOR FLUID (BEAKER) (test code Brown Colorless, Straw A = 511) RBC FLUID (BEAKER) (test code = 80564 /cu mm <=1 H 513) ADJUSTED WBC [...] code = 2873) LACTATE DEHYDROGENASE (LDH), BODY [id number] 19:43:00 Test Item Value Reference Range Interpretation [...] local 1% lidocaine anesthesia was administered.A 4 Israeli catheter was advanced into the largest pocket of the septated pleural effusion and 300 ccof bloody fluid was removed. The catheter was removed without immediate complication. Samples were sent for analysis. IMPRESSION:Uncomplicated ultrasound-guided right thoracentesis with 300 cc fluid removed. Signed: Raimundo Kim MDReport Verified Date/Time: 12/04/2018 18:00:50 Reading Location: [address] Ultrasound Reading Room RAD, CHEST, 1 VIEW, NON [id number] 17:23:00Reason for exam:->s/p right thoracentesisShould this be [...] Verified Date/Time: 12/04/2018 17:23:06 Reading Location: [facility] Reading Room C. DIFFICILE GDH [id number] 10:01:00 Test Item Value Reference Range Interpretation Comments CDT TOXIN (test code Negative Negative = [id number]) CDT GDH ANTIGEN Positive Negative A C. difficile present but (test code = toxin not detec jayla. [id number]) Indicates colon ization with non-toxige ron strain or level of tox in below detectable leve ls. No need for enteri c isolation. Gary atment is rarely needed ( only when strong clinical suspicion for Clostridium difficile infection) Testing performed by [employer] Rapid Cassette Assay. For GDH, published sensitivity of the assay is 98.7% compared to cytotoxicity testing. For Toxin AB, published sensitivity is 87.8% and specificity 99.4% compared to cytotoxicity testing.Verification of kit performance was done by the [facility] Microbiology Lab prior to clinical use.[id number] 09:39:00 Test Item Value Reference Range Interpretation Comments PARTIAL THROMBOPLASTIN TIME 79.4 seconds 22.5-36.0 H (BEAKER) (test code = 760) OCCULT BLOOD, [id number] 05:59:00 Test Item Value Reference Range Interpretation Comments FECAL OCCULT BLOOD (BEAKER) (test Negative Negative code = 618) BASIC METABOLIC [id number] 02:50:00 Test Item Value Reference Range Interpretation [...] S NOT APPLICABLE FOR DIALYSIS PATIEN TED. [id number] 02:50:00 Test Item Value Reference Range Interpretation Comments PARTIAL THROMBOPLASTIN TIME 35.3 seconds 22.5-36.0 (BEAKER) (test code = 760) Prior to initiating heparinPROTHROMBIN TIME/[id number] 02:49:00 Test Item Value Reference Range Interpretation [...] acute neurological disease, and persistent tachyarrhythmia.HEPATIC FUNCTION [id number] 02:43:00 Test Item Value Reference Range Interpretation [...] 6-55 347) CBC W/PLT COUNT & AUTO [id number] 02:21:00 Test Item Value Reference Range Interpretation [...] PERCENT (AKER) (test code = 2801) POCT-GLUCOSE [id number] 21:22:00 Test Item Value Reference Range Interpretation Comments POC-GLUCOSE METER 192 mg/dL 70-[address] [facility] 6720 ([facility]) (test code = [place] 1538) [address] TROPONIN [id number] 17:09:00 Test Item Value Reference Range Interpretation Comments TROPONIN I ([facility]) (test code = 0.10 ng/mL 0.00-0.03 H [...] and persistent tachyarrhythmia.RAD, CHEST, 1 VIEW, NON [id number] 15:36:00Reason for exam:->SHORTNESS OF BREATHShould this be performed at the bedside?->YesFINAL REPORT AP chest HISTORY: Shortness of breath. COMPARISON: 11/03/2017. IMPRESSION: Cardiomegaly. Mild interstitial edema. Right effusion and adjacent atelectasis. No pneumothorax. Signed: Mandy Chairez Verified Date/Time: 12/03/2018 15:36:19 Reading Location: [address] Radiology Reading Room TROPONIN [id number] 14:48:00 Test Item Value Reference Range Interpretation [...] (BEAKER) (test code = 700) BASIC METABOLIC [id number] 14:40:00 Test Item Value Reference Range Interpretation [...] S NOT APPLICABLE FOR DIALYSIS PATIEN TS. [id number] 14:34:00 Test Item Value Reference Range Interpretation [...] (test code = 2801) RAD, CHEST, 2 [id number] 15:24:00Reason for Exam:->chronic Diastolic heart FailureFINAL REPORT [...] MDReport Verified Date/Time: 11/03/2018 15:24:42 Reading Location: [address] Radiology Reading Room MISCELLANEOUS LAB [id number] 08:22:00 Test Item Value Reference Range Interpretation Comments SCAN RESULT (test code = 8943816) PROTHROMBIN [id number] 08:37:00 Test Item Value Reference Range Interpretation Comments PROTIME (BEAKER) (test code = 24.8 seconds 11.7-14.7 H 759) INR (BEAKER) (test code = 370) 2.2 <=5.9 RECOMMENDED COUMADIN/WARFARIN INR THERAPY RANGESSTANDARD DOSE: 2.0 - 3.0 Includes: PROPHYLAXIS forvenous thrombosis, systemic embolization; TREATMENT for venous thrombosis and/or pulmonary embolus.HIGH RISK: Target INR is 2.5-3.5 for patients with mechanical heart valves.POCT-GLUCOSE [id number] 08:10:00 Test Item Value Reference Range Interpretation Comments POC-GLUCOSE METER 89 mg/dL 70-[address] [facility] 6720 (BEAKER) (test code = [place] [address] 1538) BASIC METABOLIC [id number] 06:29:00 Test Item Value Reference Range Interpretation [...] S NOT APPLICABLE FOR DIALYSIS PATIEN TS. [id number] 06:28:00 Test Item Value Reference Range Interpretation Comments MAGNESIUM (BEAKER) (test code = 1.8 mg/dL 1.6-2.6 627) [id number] 06:14:00 Test Item Value Reference Range Interpretation Comments PARTIAL THROMBOPLASTIN TIME 64.7 seconds 22.5-36.0 H (BEAKER) (test code = 760) CBC W/PLT COUNT & AUTO [id number] 05:58:00 Test Item Value Reference Range Interpretation [...] PERCENT (BEAKER) (test code = 2801) POCT-GLUCOSE [id number] 21:14:00 Test Item Value Reference Range Interpretation Comments POC-GLUCOSE METER 135 mg/dL 70-110 H TESTED AT [place] [address] ([facility]) (test code = [place] 1538) [address] [id number] 19:36:00 Test Item Value Reference Range Interpretation Comments PARTIAL THROMBOPLASTIN TIME 88.6 seconds 22.5-36.0 H ([facility]) (test code = 760) POCT-GLUCOSE [id number] 18:27:00 Test Item Value Reference Range Interpretation Comments POC-GLUCOSE METER 88 mg/dL 70-110 TESTED AT [place] [address] ([facility]) (test code = [place] [facility] [address] 1538) POCT-GLUCOSE [id number] 12:05:00 Test Item Value Reference Range Interpretation Comments POC-GLUCOSE METER 92 mg/dL 70-110 TESTED AT [place] [address] ([facility]) (test code = [place] [facility] [address] 1538) [id number] 11:46:00 Test Item Value Reference Range Interpretation Comments PARTIAL THROMBOPLASTIN TIME 74.3 seconds 22.5-36.0 H ([facility]) (test code = 760) POCT-GLUCOSE [id number] 10:36:00 Test Item Value Reference Range Interpretation Comments POC-GLUCOSE METER 101 mg/dL 70-110 TESTED AT [place] [address] ([facility]) (test code = [place] [facility] 1538) [address] POCT-GLUCOSE [id number] 07:10:00 Test Item Value Reference Range Interpretation Comments POC-GLUCOSE METER 92 mg/dL 70-110 TESTED AT [place] [address] ([facility]) (test code = [place] [facility] [address] 1538) PROTHROMBIN TIME/[id number] 01:41:00 Test Item Value Reference Range Interpretation Comments PROTIME ([facility]) (test code = 22.8 seconds 11.7-14.7 H 759) INR ([facility]) (test code = 370) 2.0 <=5.9 RECOMMENDED COUMADIN/WARFARIN INR THERAPY RANGESSTANDARD DOSE: 2.0 - 3.0 Includes: PROPHYLAXIS forvenous thrombosis, systemic embolization; TREATMENT for venous thrombosis and/or pulmonary embolus.HIGH RISK: Target INR is 2.5-3.5 for patients with mechanical heart valves.While on warfarin.[id number] 01:41:00 Test Item Value Reference Range Interpretation Comments PARTIAL THROMBOPLASTIN TIME 52.3 seconds 22.5-36.0 H (BEAKER) (test code = 760) While on warfarin.BASIC METABOLIC [id number] 01:37:00 Test Item Value Reference Range Interpretation [...] S NOT APPLICABLE FOR DIALYSIS PATIEN TS. [id number] 01:32:00 Test Item Value Reference Range Interpretation Comments MAGNESIUM (BEAKER) (test code = 1.8 mg/dL 1.6-2.6 627) CBC W/PLT COUNT & AUTO [id number] 01:18:00 Test Item Value Reference Range Interpretation [...] 0-1 PERCENT (BEAKER) (test code = 2801) [id number] 23:23:00 Test Item Value Reference Range Interpretation Comments PARTIAL THROMBOPLASTIN TIME 125.2 seconds 22.5-36.0 H (BEAKER) (test code = 760) POCT-GLUCOSE [id number] 21:19:00 Test Item Value Reference Range Interpretation Comments POC-GLUCOSE METER 165 mg/dL 70-[address] [facility] 6720 (BEAKER) (test code = [place] 1538) [address] POCT-GLUCOSE [id number] 18:34:00 Test Item Value Reference Range Interpretation Comments POC-GLUCOSE METER 92 mg/dL 70-[address] [facility] 6720 ([facility]) (test code = FOSTER Paul [facility] [address] 1538) [id number] 17:17:00 Test Item Value Reference Range Interpretation Comments PARTIAL THROMBOPLASTIN TIME 75.2 seconds 22.5-36.0 H (BEAKER) (test code = 760) POCT-GLUCOSE [id number] 12:48:00 Test Item Value Reference Range Interpretation Comments POC-GLUCOSE METER 105 mg/dL 70-110 TESTED AT [place] [id number] ([facility]) (test code = FOSTER Paul [facility] 1538) [address] RAD, CHEST, 1 VIEW, NON [id number] 11:00:00Reason for exam:->eval right effusionShould this be performed at the bedside?->YesFINAL REPORT Comparison: 08/15/2018 TECHNIQUE: Single view of the chest FINDINGS: Small to moderate right pleural effusion is stable. Small left pleural effusion may be slightly increased. Vascular congestion seen. No other significant change. Signed: Kyle Rome Verified Date/Time: 08/18/2018 11:00:36 Reading Location: [facility] Radiology Reading Room Electronicallysigned by: KYLE ROME M.D. on 08/18/2018 11:00 [id number] 09:48:00 Test Item Value Reference Range Interpretation Comments PARTIAL THROMBOPLASTIN TIME 48.8 seconds 22.5-36.0 H (BEAKER) (test code = 760) POCT-GLUCOSE [id number] 07:37:00 Test Item Value Reference Range Interpretation Comments POC-GLUCOSE METER 96 mg/dL 70-[address] [facility] 6720 ([facility]) (test code = [place]ER Paul [facility] [address] 1538) BASIC METABOLIC [id number] 02:24:00 Test Item Value Reference Range Interpretation [...] S NOT APPLICABLE FOR DIALYSIS PATIEN TS. [id number] 02:22:00 Test Item Value Reference Range Interpretation Comments MAGNESIUM (BEAKER) (test code = 1.7 mg/dL 1.6-2.6 627) [id number] 02:15:00 Test Item Value Reference Range Interpretation Comments PARTIAL THROMBOPLASTIN TIME 98.9 seconds 22.5-36.0 H (BEAKER) (test code = 760) PROTHROMBIN [id number] 02:13:00 Test Item Value Reference Range Interpretation [...] PERCENT (BEAKER) (test code = 2801) POCT-GLUCOSE [id number] 21:51:00 Test Item Value Reference Range Interpretation Comments POC-GLUCOSE METER 98 mg/dL 70-[address] [facility] 6720 (BEAKER) (test [place] = [place] [address] 1538) [id number] 18:51:00 Test Item Value Reference Range Interpretation Comments PARTIAL THROMBOPLASTIN TIME 56.1 seconds 22.5-36.0 H (BEAKER) (test code = 760) [id number] 17:06:00 Test Item Value Reference Range Interpretation Comments PARTIAL THROMBOPLASTIN TIME 121.9 seconds 22.5-36.0 H (BEAKER) (test code = 760) POCT-GLUCOSE [id number] 16:46:00 Test Item Value Reference Range Interpretation Comments POC-GLUCOSE METER 135 mg/dL 70-[address] [facility] 67 ([facility]) (test code = [facility] 1538) [address] POCT-GLUCOSE [id number] 13:28:00 Test Item Value Reference Range Interpretation Comments POC-GLUCOSE METER 96 mg/dL 70-110 TESTED AT [place] [id number] ([facility]) (test code = [facility] [address] 1538) [id number] 09:15:00 Test Item Value Reference Range Interpretation Comments PARTIAL THROMBOPLASTIN TIME 58.1 seconds 22.5-36.0 H (BEAKER) (test code = 760) BASIC METABOLIC [id number] 07:31:00 Test Item Value Reference Range Interpretation [...] S NOT APPLICABLE FOR DIALYSIS PATIEN TS. [id number] 07:19:00 Test Item Value Reference Range Interpretation Comments PHOSPHORUS (BEAKER) (test code = 3.7 mg/dL 2.3-4.7 604) [id number] 07:19:00 Test Item Value Reference Range Interpretation Comments MAGNESIUM (BEAKER) (test code = 1.7 mg/dL 1.6-2.6 627) [id number] 07:07:00 Test Item Value Reference Range Interpretation Comments PARTIAL THROMBOPLASTIN TIME 124.4 seconds 22.5-36.0 H (BEAKER) (test code = 760) PROTHROMBIN [id number] 07:02:00 Test Item Value Reference Range Interpretation [...] 0-1 PERCENT (BEAKER) (test code = 2801) [id number] 23:01:00 Test Item Value Reference Range Interpretation Comments PARTIAL THROMBOPLASTIN TIME 46.5 seconds 22.5-36.0 H (BEAKER) (test code = 760) POCT-GLUCOSE [id number] 22:45:00 Test Item Value Reference Range Interpretation Comments POC-GLUCOSE METER 144 mg/dL 70-[address] [facility] 67 (BEAKER) (test code = FOSTER [place] 1538) [address] [id number] 15:02:00 Test Item Value Reference Range Interpretation Comments PARTIAL THROMBOPLASTIN TIME 56.1 seconds 22.5-36.0 H ([facility]) (test code = 760) POCT-GLUCOSE [id number] 14:39:00 Test Item Value Reference Range Interpretation Comments POC-GLUCOSE METER 189 mg/dL 70-[address] [facility] 6720 ([facility]) (test code = F[place]ER Paul [facility] 1538) [address] HIV-1 PCR, [id number] 13:58:00 Test Item Value Reference Range Interpretation Comments HIV-1 NUMERIC RESULT ([facility]) (test 170 Cp/mL <20 H code = 2704) This test uses a Real-Time Polymerase Chain Reaction (RT-PCR) methodology to detect a highly conserved region of the HIV-1 gag gene and was performed using the ERICH AmpliPrep/ERICH TaqMan HIV-1 test kit version 2.0 ([employer]Reportable range for this assay is 20 - 10,000,000 copies per mL (1.3 - 7.0 Log copies/mL).[id number] 12:54:00 Test Item Value Reference Range Interpretation Comments PARTIAL THROMBOPLASTIN TIME 143.6 seconds 22.5-36.0 H ([facility]) (test code = 760) [id number] 10:00:00Medical Cytology Report Case: [id number] Authorizing Provider: Alison Solano MD Collected: 08/13/2018 1803 Ordering Location: [address] Received: 08/14/2018 0923 Service Pathologist: Yamil Hamm MD Specimen: Pleural, Right RIGHT PLEURAL FLUID (CYTOSPINS AND CELL BLOCK): - NO MALIGNANT CELLS IDENTIFIED (SEE COMMENT) Signing Pathologist Direct Phone Line: [phone] signed by Yamil Hamm MD on 08/16/2018 [...] thoracentesis may be considered when fluid reaccumulates. 03012, 72877, 65437, 68821 x 2Left pleural effusion, history of AIDS, Kaposi's sarcoma, hepatitis C.RIGHT PLEURAL FLUID 300 mls bloody; 4 cytospins, cell blockCollected: [id number]: [id number] interpretation of this case included the use of immunohistochemistry or special stains. Please see the immunohistochemistry results in the COMMENT section. Immunohistochemistry technical testing was performed at [facility], Pathology Laboratory where it was developed [...] as qualified toperform high complexity clinical laboratory testing.[facility], Department of Pathology, [address] [place] [address], [facility], [facility], [address] [place] [address], [facility], [facility] of [facility], [address] [place] [address], RSDE-GLUCOSE [id number] 08:29:00 Test Item Value Reference Range Interpretation Comments POC-GLUCOSE METER 96 mg/dL 70-110 TESTED AT [place] [address] ([facility]) (test code = [facility] [address] 1538) BODY FLUID CULTURE + GRAM [id number] 07:54:00 Test Item Value Reference Range Interpretation Comments CULTURE (BEAKER) (test code No growth = 1095) GRAM STAIN RESULT ([facility]) <1+ WBCs (test code = 1123) GRAM STAIN RESULT (BEAKER) No organisms seen (test code = 42192) BASIC METABOLIC [id number] 06:30:00 Test Item Value Reference Range Interpretation [...] S NOT APPLICABLE FOR DIALYSIS PATIEN TS. [id number] 06:26:00 Test Item Value Reference Range Interpretation Comments MAGNESIUM (BEAKER) (test code = 1.6 mg/dL 1.6-2.6 627) [id number] 05:48:00 Test Item Value Reference Range Interpretation Comments PARTIAL THROMBOPLASTIN TIME 80.3 seconds 22.5-36.0 H (BEAKER) (test code = 760) While on warfarin.PROTHROMBIN [id number] 05:46:00 Test Item Value Reference Range Interpretation [...] valves.While on warfarin.CBC W/PLT COUNT & AUTO [id number] 05:28:00 Test Item Value Reference Range Interpretation [...] IMMATURE GRANULOCYTES-RELATIVE 1 % 0-1 PERCENT ([facility]) (test code = 2801) [id number] 22:09:00 Test Item Value Reference Range Interpretation Comments PARTIAL THROMBOPLASTIN TIME 61.5 seconds 22.5-36.0 H ([facility]) (test code = 760) RAD, CHEST, 1 VIEW, NON [id number] 20:20:00Reason for exam:->eval right effusionShould this be [...] Anderson Verified Date/Time: 08/15/2018 20:20:24 Reading Location: [facility] Radiology Reading Room POCT-GLUCOSE [id number] 19:05:00 Test Item Value Reference Range Interpretation Comments POC-GLUCOSE METER 87 mg/dL 70-110 TESTED AT [place] [address] ([facility]) (test code = FOSTER Paul [facility] [address] 1538) POCT-GLUCOSE [id number] 13:12:00 Test Item Value Reference Range Interpretation Comments POC-GLUCOSE METER 162 mg/dL 70-[address] [facility] 67 ([facility]) (test code = FOSTER Paul [facility] 1538) [address] [id number] 12:48:00 Test Item Value Reference Range Interpretation Comments PARTIAL THROMBOPLASTIN TIME 89.1 seconds 22.5-36.0 H ([facility]) (test code = 760) POCT-GLUCOSE [id number] 09:58:00 Test Item Value Reference Range Interpretation Comments POC-GLUCOSE METER 229 mg/dL 70-[address] [facility] 6720 (BEAKER) (test code = [place] 1538) [address] BASIC METABOLIC [id number] 05:40:00 Test Item Value Reference Range Interpretation [...] PATIEN TS. CBC W/PLT COUNT & AUTO [id number] 05:38:00 Test Item Value Reference Range Interpretation [...] 0-1 PERCENT (BEAKER) (test code = 2801) [id number] 05:28:00 Test Item Value Reference Range Interpretation Comments MAGNESIUM (BEAKER) (test code = 1.8 mg/dL 1.6-2.6 627) [id number] 04:47:00 Test Item Value Reference Range Interpretation Comments PARTIAL THROMBOPLASTIN TIME 60.9 seconds 22.5-36.0 H (BEAKER) (test code = 760) PROTHROMBIN [id number] 04:46:00 Test Item Value Reference Range Interpretation Comments PROTIME (BEAKER) (test code = 17.9 seconds 11.7-14.7 H 759) INR (BEAKER) (test code = 370) 1.5 <=5.9 RECOMMENDED COUMADIN/WARFARIN INR THERAPY RANGESSTANDARD DOSE: 2.0 - 3.0 Includes: PROPHYLAXIS forvenous thrombosis, systemic embolization; TREATMENT for venous thrombosis and/or pulmonary embolus.HIGH RISK: Target INR is 2.5-3.5 for patients with mechanical heart valves.[id number] 20:56:00 Test Item Value Reference Range Interpretation Comments PARTIAL THROMBOPLASTIN TIME 52.1 seconds 22.5-36.0 H ([facility]) (test code = 760) CT, CHEST, WITHOUT [id number] 19:06:00S/p fall in Nov--> right effusion, tapped [...] MDReport Verified Date/Time: 08/14/2018 19:06:09 Reading Location: [address] Reading Room [id number] 12:40:00 Test Item Value Reference Range Interpretation Comments PARTIAL THROMBOPLASTIN TIME 48.4 seconds 22.5-36.0 H ([facility]) (test code = 760) CD4 T CELL [id number] 11:15:00 Test Item Value Reference Range Interpretation Comments TOTAL LYMPHOCYTES FC ([facility]) 935 /cu mm (test code = 3477) [...] 107-698 L (BEAKER) (test code = 3491) [id number] 10:48:00 Test Item Value Reference Range Interpretation Comments PHOSPHORUS (BEAKER) (test code = 5.2 mg/dL 2.3-4.7 H 604) BASIC METABOLIC [id number] 07:13:00 Test Item Value Reference Range Interpretation [...] S NOT APPLICABLE FOR DIALYSIS PATIEN TS. [id number] 07:11:00 Test Item Value Reference Range Interpretation Comments MAGNESIUM (BEAKER) (test code = 1.8 mg/dL 1.6-2.6 627) [id number] 07:00:00 Test Item Value Reference Range Interpretation Comments PARTIAL THROMBOPLASTIN TIME 59.2 seconds 22.5-36.0 H (BEAKER) (test code = 760) PROTHROMBIN [id number] 06:59:00 Test Item Value Reference Range Interpretation [...] 0-1 PERCENT (BEAKER) (test code = 2801) [id number] 00:30:00 Test Item Value Reference Range Interpretation Comments PARTIAL THROMBOPLASTIN TIME 56.7 seconds 22.5-36.0 H (BEAKER) (test code = 760) BODY FLUID CELL COUNT WITH [id number] 19:28:00 Test Item Value Reference Range Interpretation Comments APPEARANCE FLUID (BEAKER) (test Cloudy Clear A code = 510) COLOR FLUID (BEAKER) (test code Red Colorless, Straw A = 511) RBC FLUID (BEAKER) (test code = 43636 /cu mm <=1 H 513) ADJUSTED WBC [...] Tube (test code = 2873) ALBUMIN, BODY [id number] 18:40:00 Test Item Value Reference Range Interpretation Comments ALBUMIN FLUID (BEAKER) (test code = 2.1 gm/dL 501) Reference Range: No Normals Assay performance has not been validated for this type of specimen.LACTATE DEHYDROGENASE (LDH), BODY [id number] 18:40:00 Test Item Value Reference Range Interpretation [...] 125-220 H code = 635) HEPATIC FUNCTION [id number] 18:40:00 Test Item Value Reference Range Interpretation [...] 6-55 347) RAD, CHEST, 1 VIEW, NON [id number] 17:56:00Reason for exam:->post Right thoracentesisShould this be [...] MDReport Verified Date/Time: 08/13/2018 17:56:18 Reading Location: [address] Consult Reading Room U/S, [id number] 16:22:00Reason for exam:->shortness of breath, recurrent right pleural effusionShould this be performed at the bedside?->NoFINAL REPORT Ultrasound guided right thoracentesis, 08/13/2018. Clinical His tory: Right pleural effusion. Modality: Ultrasound. Sedation: None. Line Producer: Gini. Material Manager: None. Estimated Blood Loss: 1cc Specimen: [...] Musaeport Verified Date/Time: 08/13/2018 16:22:16 Reading Location: [facility] P006J Ultrasound Reading Room [id number] 07:18:00 Test Item Value Reference Range Interpretation Comments MAGNESIUM (BEAKER) (test code = 2.0 mg/dL 1.6-2.6 627) BASIC METABOLIC [id number] 07:18:00 Test Item Value Reference Range Interpretation [...] PATIEN TS. RAD, CHEST, 1 VIEW, NON [id number] 06:25:00Reason for exam:->SOBShould this be performed at [...] Taylor Verified Date/Time: 08/13/2018 06:25:21 Reading Location: [facility] C0[facility] Transitional Re ading Room [id number] 05:49:00 Test Item Value Reference Range Interpretation Comments PARTIAL THROMBOPLASTIN TIME 42.0 seconds 22.5-36.0 H (BEAKER) (test code = 760) PROTHROMBIN [id number] 05:48:00 Test Item Value Reference Range Interpretation [...] PERCENT (BEAKER) (test code = 2801) POCT-GLUCOSE [id number] 18:30:00 Test Item Value Reference Range Interpretation Comments POC-GLUCOSE METER 80 mg/dL 70-[address] [facility] 6720 (BEAKER) (test code = [facility] Humberto [facility] [address] 1538) RAD, CHEST, 1 VIEW, NON [id number] 13:46:00Reason for exam:->evaluate pleural effusionShould this be performed at the bedside?->YesFINAL REPORT Comparison: 08/02/2018 TECHNIQUE: Single view of the chest FINDINGS Bilateral interstitial and airspace opacities are stable. Bilateral pleural effusions seen, right greater than left. No gross new lung parenchymal changes. Post surgical changes in the mediastinum. IMPRESSION: No significant interval change. Signed: Kyle Rome MDReport Verified Date/Time: 08/06/2018 13:46:20 Reading Location: [facility] Radiology Reading Room [id number] 09:33:00 Test Item Value Reference Range Interpretation Comments PARTIAL THROMBOPLASTIN TIME 113.6 seconds 22.5-36.0 H (BEAKER) (test code = 760) [id number] 06:48:00 Test Item Value Reference Range Interpretation [...] heart valves.While on warfarin.While on warfarin.BASIC METABOLIC [id number] 06:45:00 Test Item Value Reference Range Interpretation [...] NOT APPLICABLE FOR DIALYSIS PATIEN TS. PROTHROMBIN [id number] 06:43:00 Test Item Value Reference Range Interpretation [...] WBC 0-0 (BEAKER) (test code = 413) [id number] 20:40:00 Test Item Value Reference Range Interpretation Comments PARTIAL THROMBOPLASTIN TIME 81.7 seconds 22.5-36.0 H (BEAKER) (test code = 760) [id number] 14:05:00 Test Item Value Reference Range Interpretation Comments PARTIAL THROMBOPLASTIN TIME 91.5 seconds 22.5-36.0 H (BEAKER) (test code = 760) BASIC METABOLIC [id number] 07:02:00 Test Item Value Reference Range Interpretation [...] S NOT APPLICABLE FOR DIALYSIS PATIEN TS. [id number] 06:47:00 Test Item Value Reference Range Interpretation [...] valves.Ok to add onOk to add onPROTHROMBIN TIME/[id number] 06:46:00 Test Item Value Reference Range Interpretation [...] 0-1 PERCENT (BEAKER) (test code = 2801) [id number] 16:22:00 Test Item Value Reference Range Interpretation Comments PARTIAL THROMBOPLASTIN TIME 76.1 seconds 22.5-36.0 H (BEAKER) (test code = 760) BODY FLUID CULTURE + GRAM [id number] 09:10:00 Test Item Value Reference Range Interpretation Comments CULTURE (BEAKER) (test code No growth = 1095) GRAM STAIN RESULT (BEAKER) <1+ WBCs (test code = 1123) GRAM STAIN RESULT (BEAKER) No organisms seen (test code = 56531) CBC W/PLT COUNT & AUTO [id number] 07:23:00 Test Item Value Reference Range Interpretation [...] (BEAKER) (test code = 413) BASIC METABOLIC [id number] 07:05:00 Test Item Value Reference Range Interpretation [...] S NOT APPLICABLE FOR DIALYSIS PATIEN TS. [id number] 06:53:00 Test Item Value Reference Range Interpretation [...] heart valves.Ok to add onOk to add [id number] 06:53:00 Test Item Value Reference Range Interpretation Comments PARTIAL THROMBOPLASTIN TIME 70.3 seconds 22.5-36.0 H (BEAKER) (test code = 760) PROTHROMBIN TIME/[id number] 06:52:00 Test Item Value Reference Range Interpretation Comments PROTIME (BEAKER) (test code = 17.5 seconds 11.7-14.7 H 759) INR (BEAKER) (test code = 370) 1.4 <=5.9 RECOMMENDED COUMADIN/WARFARIN INR THERAPY RANGESSTANDARD DOSE: 2.0 - 3.0 Includes: PROPHYLAXIS forvenous thrombosis, systemic embolization; TREATMENT for venous thrombosis and/or pulmonary embolus.HIGH RISK: Target INR is 2.5-3.5 for patients with mechanical heart valves.PROTHROMBIN TIME/[id number] 06:51:00 Test Item Value Reference Range Interpretation Comments PROTIME (BEAKER) (test code = 17.7 seconds 11.7-14.7 H 759) INR (BEAKER) (test code = 370) 1.5 <=5.9 RECOMMENDED COUMADIN/WARFARIN INR THERAPY RANGESSTANDARD DOSE: 2.0 - 3.0 Includes: PROPHYLAXIS forvenous thrombosis, systemic embolization; TREATMENT for venous thrombosis and/or pulmonary embolus.HIGH RISK: Target INR is 2.5-3.5 for patients with mechanical heart valves.While on warfarin.[id number] 22:47:00 Test Item Value Reference Range Interpretation Comments PARTIAL THROMBOPLASTIN TIME 73.6 seconds 22.5-36.0 H (BEAKER) (test code = 760) [id number] 13:08:00 Test Item Value Reference Range Interpretation Comments PARTIAL THROMBOPLASTIN TIME 49.2 seconds 22.5-36.0 H (BEAKER) (test code = 760) BASIC METABOLIC [id number] 06:56:00 Test Item Value Reference Range Interpretation [...] S NOT APPLICABLE FOR DIALYSIS PATIEN TS. [id number] 06:56:00 Test Item Value Reference Range Interpretation Comments PARTIAL THROMBOPLASTIN TIME 67.5 seconds 22.5-36.0 H (BEAKER) (test code = 760) [id number] 06:45:00 Test Item Value Reference Range Interpretation [...] valves.Ok to add onOk to add onPROTHROMBIN TIME/[id number] 06:44:00 Test Item Value Reference Range Interpretation [...] /100 WBC 0-0 (test code = 413) [id number] 02:18:00 Test Item Value Reference Range Interpretation Comments PARTIAL THROMBOPLASTIN TIME 67.1 seconds 22.5-36.0 H (BEAKER) (test code = 760) [id number] 18:56:00 Test Item Value Reference Range Interpretation Comments PARTIAL THROMBOPLASTIN TIME 72.5 seconds 22.5-36.0 H (BEAKER) (test code = 760) POCT-GLUCOSE [id number] 13:08:00 Test Item Value Reference Range Interpretation Comments POC-GLUCOSE METER 121 mg/dL 70-[address] [facility] 6720 (BEAKER) (test code = [place] 1538) [address] [id number] 12:07:00 Test Item Value Reference Range Interpretation Comments PARTIAL THROMBOPLASTIN TIME 50.7 seconds 22.5-36.0 H (BEAKER) (test code = 760) Ok to add onPROTHROMBIN TIME/[id number] 12:05:00 Test Item Value Reference Range Interpretation [...] = 413) RAD, CHEST, 1 VIEW, NON [id number] 11:24:00Reason for exam:->pleural effusionShould this be performed at the bedside?->YesFINAL REPORT AP chest HISTORY: Pleural effusion COMPARISON: 08/01/2018 IMPRESS ION:Intact skeleton. Cardiomegaly. Moderate interstitial edema. Moderate right and small left effusions. No pneumothorax. Signed: Mandy Chairez MDReport Verified Date/Time: 08/02/2018 11:24:33 Reading Location: [address] Ortho Consult Reading Room BASIC METABOLIC [id number] 02:55:00 Test Item Value Reference Range Interpretation [...] S NOT APPLICABLE FOR DIALYSIS PATIEN TS. [id number] 02:39:00 Test Item Value Reference Range Interpretation Comments PARTIAL THROMBOPLASTIN TIME 51.6 seconds 22.5-36.0 H (BEAKER) (test code = 760) CBC W/PLT COUNT & AUTO [id number] 02:30:00 Test Item Value Reference Range Interpretation [...] = 2801) BODY FLUID CELL COUNT WITH [id number] 21:13:00 Test Item Value Reference Range Interpretation Comments APPEARANCE FLUID (BEAKER) (test Bloody Clear A code = 510) COLOR FLUID (BEAKER) (test code Sunil Colorless, Straw A = 511) RBC FLUID (BEAKER) (test code = 67864 /cu mm <=1 H 513) ADJUSTED WBC [...] Tube (test code = 2873) ALBUMIN, BODY [id number] 20:00:00 Test Item Value Reference Range Interpretation Comments ALBUMIN FLUID (BEAKER) (test code = 2.1 gm/dL 501) Reference Range: No Normals Assay performance has not been validated for this type of specimen.LACTATE DEHYDROGENASE (LDH), BODY [id number] 20:00:00 Test Item Value Reference Range Interpretation [...] of specimen.RAD, CHEST, PA OR AP, 1 [id number] 17:08:00Ultrasound Room 1Reason for exam:->s/p Right sided [...] MDReport Verified Date/Time: 08/01/2018 17:08:13 Reading Location: [facility] Radiology Reading Room U/S, [id number] 17:03:00 Laterality?->RightReason for exam:->large pleural effusionFINAL REPORT HISTORY: Right pleural effusion Following informed written consent, the patient's right posterior chest wall was prepped and draped in the usual sterile manner. 2% lidocaine was given locally for anesthesia. No conscious sedation was administered. Vital signs were monitored and remained stable. Using ultrasound guidance and a 5 Israeli angiocatheter, access was gain ed to the [...] Seymour Verified Date/Time: 08/01/2018 17:03:15 Reading Location: [facility] P006J Ultrasound Reading Room RAD, CHEST, 1 VIEW, NON [id number] 12:40:00Reason for exam:->pleural effusion; shortness of breathShould [...] MDReport Verified Date/Time: 08/01/2018 12:40:42 Reading Location: [facility] [facility] Reading Room APTT 2018-08-01 11:33:00 Test Item Value Reference Range Interpretation Comments PARTIAL THROMBOPLASTIN TIME 118.1 seconds 22.5-36.0 H (BEAKER) (test code = 760) BASIC METABOLIC [id number] 02:07:00 Test Item Value Reference Range Interpretation [...] S NOT APPLICABLE FOR DIALYSIS PATIEN TS. [id number] 01:55:00 Test Item Value Reference Range Interpretation [...] is 2.5-3.5 for patients with mechanical heart valves.[id number] 01:55:00 Test Item Value Reference Range Interpretation Comments PARTIAL THROMBOPLASTIN TIME 96.8 seconds 22.5-36.0 H (BEAKER) (test code = 760) CBC W/PLT COUNT & AUTO [id number] 01:38:00 Test Item Value Reference Range Interpretation [...] 0-1 PERCENT (BEAKER) (test code = 2801) [id number] 18:58:00 Test Item Value Reference Range Interpretation Comments PARTIAL THROMBOPLASTIN TIME 61.7 seconds 22.5-36.0 H (BEAKER) (test code = 760) [id number] 09:22:00 Test Item Value Reference Range Interpretation Comments PARTIAL THROMBOPLASTIN TIME 61.5 seconds 22.5-36.0 H (BEAKER) (test code = 760) BASIC METABOLIC [id number] 02:14:00 Test Item Value Reference Range Interpretation [...] S NOT APPLICABLE FOR DIALYSIS PATIEN TS. [id number] 01:43:00 Test Item Value Reference Range Interpretation [...] is 2.5-3.5 for patients with mechanical heart valves.[id number] 01:43:00 Test Item Value Reference Range Interpretation Comments PARTIAL THROMBOPLASTIN TIME 62.7 seconds 22.5-36.0 H (BEAKER) (test code = 760) CBC W/PLT COUNT & AUTO [id number] 01:32:00 Test Item Value Reference Range Interpretation [...] 0-1 PERCENT (BEAKER) (test code = 2801) [id number] 18:38:00 Test Item Value Reference Range Interpretation Comments PARTIAL THROMBOPLASTIN TIME 38.9 seconds 22.5-36.0 H (BEAKER) (test code = 760) Prior to initiating heparinPLATELET [id number] 18:17:00 Test Item Value Reference Range Interpretation Comments PLATELET COUNT (BEAKER) (test 115 K/CU MM 150-450 L code = 756) RAD, CHEST, 2 [id number] 18:05:00Reason for exam:->sob and pleural effusionFINAL REPORT [...] Sykes MDReport Verified Date/Time: 07/30/2018 18:05:46Reading Location: [facility] [id number] Consult Reading Room C METABOLIC [id number] 05:26:00 Test Item Value Reference Range Interpretation [...] S NOT APPLICABLE FOR DIALYSIS PATIEN TS. [id number] 05:25:00 Test Item Value Reference Range Interpretation [...] 2.5-3.5 for patients with mechanical heart valves.PROTHROMBIN [id number] 05:24:00 Test Item Value Reference Range Interpretation [...] (test code = 2801) HEPATITIS B SURFACE [id number] 12:09:00 Test Item Value Reference Range Interpretation Comments HEPATITIS B SURFACE ANTIGEN (2) Nonreactive Nonreactive (BEAKER) (test code = 2585) POCT-GLUCOSE [id number] 07:50:00 Test Item Value Reference Range Interpretation Comments POC-GLUCOSE METER 93 mg/dL 70-[address] [facility] 6720 (BEAKER) (test code = [place] [address] 1538) [id number] 04:59:00 Test Item Value Reference Range Interpretation [...] for patients with mechanical heart valves.BASIC METABOLIC [id number] 04:59:00 Test Item Value Reference Range Interpretation [...] PATIEN TS. CBC W/PLT COUNT & AUTO [id number] 04:51:00 Test Item Value Reference Range Interpretation [...] (test code = 2801) AFB CULTURE + [id number] 16:13:00 Test Item Value Reference Range Interpretation Comments CULTURE (BEAKER) (test No acid-fast bacilli code = 1095) isolated in 42 days AFB SMEAR (BEAKER) No acid fast bacilli (test code = 994) seen AFB CULTURE + [id number] 16:13:00 Test Item Value Reference Range Interpretation Comments CULTURE (BEAKER) (test No acid-fast bacilli code = 1095) isolated in 42 days AFB SMEAR (BEAKER) No acid fast bacilli (test code = 994) seen FUNGUS CULTURE + [id number] 07:13:00 Test Item Value Reference Range Interpretation Comments CULTURE (BEAKER) (test No fungus isolated in code = 1095) 28 days FUNGUS SMEAR (BEAKER) No fungi seen (test code = 1406) FUNGUS CULTURE + [id number] 07:13:00 Test Item Value Reference Range Interpretation Comments CULTURE (BEAKER) (test No fungus isolated in code = 1095) 28 days FUNGUS SMEAR (BEAKER) No fungi seen (test code = 1406) TISSUE [id number] 19:17:00Surgical Pathology Report Case: [id number] Authorizing Provider: Juliana Martinez MD Collected: 05/23/201825 Ordering Location: [facility] PERI[facility] Received: 05/23/2018 0923 SERVICES Pathologist: Brigida Parks MD Specimen: Soft Tissue, Other, LEFT GROIN - TISSUE BIOPSY SKIN AND SOFT TISSUE,GROIN,LEFT, BIOPSY: - ABSCESSES, GRANULOMAS AND CHRONIC INFLAMMATION - NEGATIVE FOR DYSPLASIA OR MALIGNANCY - AFB AND GMS STAINS ARE NEGATIVE (SEE COMMENT) Signing Pathologist Direct Phone Line: [phone] signed by Brigida Parks MD on 06/02/2018 at 7:17 PMCorrelation with culture studies is recommended.[id number] abscess groinLeft groin tissue biopsyReceived fresh labeled "soft tissue, other", description "left groin tissue biopsy" are two dark-porter, wrinkled,hair- bearing strips of skin measuring 1.5 and 2.6 cm in length, 0.3 cm in diameter and excised to a depth of 0.3 cm.Sectioning reveals no discrete masses.The specimen is entirely submitted in cassettesA1. DB/ewPOCT-GLUCOSE [id number] 08:51:00 Test Item Value Reference Range Interpretation Comments POC-GLUCOSE METER 101 mg/dL 70-[address] [facility] 6720 ([facility]) (test code = [place] [facility] 1538) [address] CBC W/PLT COUNT & AUTO [id number] 06:01:00 Test Item Value Reference Range Interpretation Comments WHITE BLOOD CELL COUNT ([facility]) 7.1 K/ L 3.5-10.5 (test code = 775) RED BLOOD CELL COUNT (AKER) 3.50 M/ L 4.63-6.08 L (test code = 761) HEMOGLOBIN (BEAKER) (test code = 10.7 GM/DL 13.7-17.5 L 410) HEMATOCRIT ([facility]) (test code = 33.4 % 40.1-51.0 L 411) MEAN CORPUSCULAR VOLUME ([facility]) 95.4 fL 79.0-92.2 H (test code = [...] PERCENT (BEAKER) (test code = 2801) PROTHROMBIN [id number] 05:51:00 Test Item Value Reference Range Interpretation Comments PROTIME (BEAKER) (test code = 25.9 seconds 11.7-14.7 H 759) INR (BEAKER) (test code = 370) 2.4 <=5.9 RECOMMENDED COUMADIN/WARFARIN INR THERAPY RANGESSTANDARD DOSE: 2.0 - 3.0 Includes: PROPHYLAXIS forvenous thrombosis, systemic embolization; TREATMENT for venous thrombosis and/or pulmonary embolus.HIGH RISK: Target INR is 2.5-3.5 for patients with mechanical heart valves.BASIC METABOLIC [id number] 05:46:00 Test Item Value Reference Range Interpretation [...] NOT APPLICABLE FOR DIALYSIS PATIEN TS. POCT-GLUCOSE [id number] 20:34:00 Test Item Value Reference Range Interpretation Comments POC-GLUCOSE METER 261 mg/dL 70-110 H TESTED AT [place] [address] ([facility]) (test code = [place] [facility] 1538) [address] POCT-GLUCOSE [id number] 18:12:00 Test Item Value Reference Range Interpretation Comments POC-GLUCOSE METER 139 mg/dL 70-110 H TESTED AT [place] [address] ([facility]) (test code = [place] [facility] 1538) [address] POCT-GLUCOSE [id number] 11:51:00 Test Item Value Reference Range Interpretation Comments POC-GLUCOSE METER 147 mg/dL 70-110 H TESTED AT [place] [address] ([facility]) (test code = [place] [facility] 1538) [address] POCT-GLUCOSE [id number] 08:42:00 Test Item Value Reference Range Interpretation Comments POC-GLUCOSE METER 104 mg/dL 70-110 TESTED AT [place] [address] ([facility]) (test code = [place] [facility] 1538) [address] CBC W/PLT COUNT & AUTO [id number] 06:56:00 Test Item Value Reference Range Interpretation [...] (BEAKER) (test code = 2801) BASIC METABOLIC [id number] 06:49:00 Test Item Value Reference Range Interpretation [...] NOT APPLICABLE FOR DIALYSIS PATIEN TS. PROTHROMBIN [id number] 06:46:00 Test Item Value Reference Range Interpretation Comments PROTIME (BEAKER) (test code = 26.9 seconds 11.7-14.7 H 759) INR (BEAKER) (test code = 370) 2.5 <=5.9 RECOMMENDED COUMADIN/WARFARIN INR THERAPY RANGESSTANDARD DOSE: 2.0 - 3.0 Includes: PROPHYLAXIS forvenous thrombosis, systemic embolization; TREATMENT for venous thrombosis and/or pulmonary embolus.HIGH RISK: Target INR is 2.5-3.5 for patients with mechanical heart valves.ANAEROBIC [id number] 00:38:00 Test Item Value Reference Range Interpretation Comments CULTURE (BEAKER) (test No anaerobes isolated code = 1095) ANAEROBIC [id number] 00:38:00 Test Item Value Reference Range Interpretation Comments CULTURE (BEAKER) (test No anaerobes isolated code = 1095) POCT-GLUCOSE [id number] 20:43:00 Test Item Value Reference Range Interpretation Comments POC-GLUCOSE METER 124 mg/dL 70-110 H TESTED AT [place] [address] ([facility]) (test code = [place] 1538) [address] POCT-GLUCOSE [id number] 17:17:00 Test Item Value Reference Range Interpretation Comments POC-GLUCOSE METER 190 mg/dL 70-110 H TESTED AT [place] [address] ([facility]) (test code = [place] 1538) [address] POCT-GLUCOSE [id number] 11:54:00 Test Item Value Reference Range Interpretation Comments POC-GLUCOSE METER 195 mg/dL 70-110 H TESTED AT [place] [address] ([facility]) (test code = [place] [facility] 1538) [address] C. DIFFICILE GDH [id number] 11:16:00 Test Item Value Reference Range Interpretation Comments CDT TOXIN (test code Negative Negative = [id number]) CDT GDH ANTIGEN (test Negative Negative No ind ication of code = [id number]) Clostridi um difficile infection and n o colonization. Discontinue ent kenrick isolation and t herapy. Testing performed by [employer] Rapid Cassette Assay. For GDH, published sensitivity of the assay is 98.7% compared to cytotoxicity testing. For Toxin AB, published sensitivity is 87.8% and specificity 99.4% compared to cytotoxicity testing.Verification of kit performance was done by the [facility] Microbiology Lab prior to clinical use.SURGICALLY OBTAINED CULTURE + GRAM [id number] 09:22:00 Test Item Value Reference Interpretation Comments [...] No organisms seen (BEAKER) (test code = 941321) SURGICALLY OBTAINED CULTURE + GRAM [id number] 09:20:00 Test Item Value Reference Range Interpretation Comments CULTURE (BEAKER) (test code No growth = 1095) GRAM STAIN RESULT (BEAKER) 4+ WBCs (test code = 1123) GRAM STAIN RESULT (BEAKER) No organisms seen (test code = 40414) POCT-GLUCOSE [id number] 08:21:00 Test Item Value Reference Range Interpretation Comments POC-GLUCOSE METER 101 mg/dL 70-[address] [facility] 6720 (BEAKER) (test code = [place] 1538) [address] BASIC METABOLIC [id number] 07:57:00 Test Item Value Reference Range Interpretation [...] NOT APPLICABLE FOR DIALYSIS PATIEN TS. PROTHROMBIN [id number] 06:36:00 Test Item Value Reference Range Interpretation [...] PERCENT (BEAKER) (test code = 2801) POCT-GLUCOSE [id number] 21:40:00 Test Item Value Reference Range Interpretation Comments POC-GLUCOSE METER 176 mg/dL 70-110 H TESTED AT [place] [address] ([facility]) (test code = [facility] 1538) [address] POCT-GLUCOSE [id number] 16:07:00 Test Item Value Reference Range Interpretation Comments POC-GLUCOSE METER 120 mg/dL 70-110 H TESTED AT [place] [address] ([facility]) (test code = [facility] 1538) [address] POCT-GLUCOSE [id number] 08:31:00 Test Item Value Reference Range Interpretation Comments POC-GLUCOSE METER 119 mg/dL 70-110 H TESTED AT [place] [address] ([facility]) (test code = [facility] 1538) [address] BASIC METABOLIC [id number] 08:19:00 Test Item Value Reference Range Interpretation [...] APPLICABLE FOR DIALYSIS PATIEN TS. VANCOMYCIN LEVEL, [id number] 08:16:00 Test Item Value Reference Range Interpretation Comments VANCOMYCIN RANDOM (BEAKER) (test 17.6 ug/mL code = 523) Reference Range: No NormalsPROTHROMBIN [id number] 07:21:00 Test Item Value Reference Range Interpretation [...] PERCENT (BEAKER) (test code = 2801) BLOOD [id number] 06:00:00 Test Item Value Reference Range Interpretation Comments CULTURE (BEAKER) (test No growth in 5 days code = 1095) BLOOD [id number] 00:00:00 Test Item Value Reference Range Interpretation Comments CULTURE (BEAKER) (test No growth in 5 days code = 1095) POCT-GLUCOSE [id number] 22:05:00 Test Item Value Reference Range Interpretation Comments POC-GLUCOSE METER 169 mg/dL 70-[address] [facility] 6720 (BEAKER) (test [facility] = [facility] 1538) [address] POCT-GLUCOSE [id number] 18:20:00 Test Item Value Reference Range Interpretation Comments POC-GLUCOSE METER 110 mg/dL 70-[address] [facility] 6720 (BEAKER) (test code = [facility] Humberto [facility] 1538) [address] POCT-GLUCOSE [id number] 17:17:00 Test Item Value Reference Range Interpretation Comments POC-GLUCOSE METER 99 mg/dL 70-[address] [facility] 6720 (BEAKER) (test code = [facility] [address] 1538) SPIN/CONCENTRATION [id number] 14:49:00 Test Item Value Reference Range Interpretation Comments CONCENTRATION CHARGED (BEAKER) (test Done code = 2657) SPIN/CONCENTRATION [id number] 14:49:00 Test Item Value Reference Range Interpretation Comments CONCENTRATION CHARGED (BEAKER) (test Done code = 2657) POCT-GLUCOSE [id number] 12:13:00 Test Item Value Reference Range Interpretation Comments POC-GLUCOSE METER 188 mg/dL 70-[address] [facility] 6720 ([facility]) (test code = [place] 1538) [address] BASIC METABOLIC [id number] 09:56:00 Test Item Value Reference Range Interpretation [...] NOT APPLICABLE FOR DIALYSIS PATIEN TS. POCT-GLUCOSE [id number] 07:45:00 Test Item Value Reference Range Interpretation Comments POC-GLUCOSE METER 108 mg/dL 70-[address] [facility] 6720 ([facility]) (test code = [place] 1538) [address] CBC W/PLT COUNT & AUTO [id number] 07:00:00 Test Item Value Reference Range Interpretation [...] PERCENT (BEAKER) (test code = 2801) PROTHROMBIN [id number] 06:47:00 Test Item Value Reference Range Interpretation Comments PROTIME (BEAKER) (test code = 20.7 seconds 11.7-14.7 H 759) INR (BEAKER) (test code = 370) 1.8 <=5.9 RECOMMENDED COUMADIN/WARFARIN INR THERAPY RANGESSTANDARD DOSE: 2.0 - 3.0 Includes: PROPHYLAXIS forvenous thrombosis, systemic embolization; TREATMENT for venous thrombosis and/or pulmonary embolus.HIGH RISK: Target INR is 2.5-3.5 for patients with mechanical heart valves.POCT-GLUCOSE [id number] 20:42:00 Test Item Value Reference Range Interpretation Comments POC-GLUCOSE METER 134 mg/dL 70-[address] [facility] 6720 (BEAKER) (test code = [facility] 1538) [address] POCT-GLUCOSE [id number] 13:29:00 Test Item Value Reference Range Interpretation Comments POC-GLUCOSE METER 209 mg/dL 70-110 H TESTED AT [place] [address] ([facility]) (test code = [facility] 1538) [address] POCT-GLUCOSE [id number] 08:53:00 Test Item Value Reference Range Interpretation Comments POC-GLUCOSE METER 103 mg/dL 70-110 TESTED AT [place] [address] ([facility]) (test code = [facility] 1538) [address] BASIC METABOLIC [id number] 07:47:00 Test Item Value Reference Range Interpretation [...] DIALYSIS PATIEN TS. WOUND CULTURE + GRAM [id number] 07:44:00 Test Item Value Reference Range Interpretation Comments CULTURE (BEAKER) (test code No growth = 1095) GRAM STAIN RESULT (BEAKER) No WBCs (test code = 1123) GRAM STAIN RESULT (BEAKER) No organisms seen (test code = 81671) [id number] 07:38:00 Test Item Value Reference Range Interpretation Comments PHOSPHORUS (BEAKER) (test code = 3.2 mg/dL 2.3-4.7 604) CBC W/PLT COUNT & AUTO [id number] 06:35:00 Test Item Value Reference Range Interpretation [...] H PERCENT (BEAKER) (test code = 2807) PROTHROMBIN [id number] 06:32:00 Test Item Value Reference Range Interpretation Comments PROTIME (BEAKER) (test code = 23.2 seconds 11.7-14.7 H 759) INR (BEAKER) (test code = 370) 2.1 <=5.9 RECOMMENDED COUMADIN/WARFARIN INR THERAPY RANGESSTANDARD DOSE: 2.0 - 3.0 Includes: PROPHYLAXIS forvenous thrombosis, systemic embolization; TREATMENT for venous thrombosis and/or pulmonary embolus.HIGH RISK: Target INR is 2.5-3.5 for patients with mechanical heart valves.POCT-GLUCOSE [id number] 21:21:00 Test Item Value Reference Range Interpretation Comments POC-GLUCOSE METER 177 mg/dL 70-[address] [facility] 6720 ([facility]) (test code = [facility] Humberto [facility] 1538) [address] POCT-GLUCOSE [id number] 17:53:00 Test Item Value Reference Range Interpretation Comments POC-GLUCOSE METER 89 mg/dL 70-[address] [facility] 6720 ([facility]) (test code = [facility] [address] 1538) IRON, TIBC, % SAT. (WITHOUT FERRITIN)2018-05-22 17:45:00 Test Item Value Reference Range Interpretation Comments IRON (BEAKER) (test code = 547) 63 ug/dL 40-160 TOTAL IRON BINDING CAPACITY 203 ug/dL 250-450 L (BEAKER) (test code = 769) IRON % SATURATION (2) (BEAKER) 31 % 20-55 (test code = 2590) [id number] 16:07:00 Test Item Value Reference Range Interpretation Comments PHOSPHORUS (BEAKER) (test code = 5.4 mg/dL 2.3-4.7 H 604) POCT-GLUCOSE [id number] 12:41:00 Test Item Value Reference Range Interpretation Comments POC-GLUCOSE METER 110 mg/dL 70-[address] [facility] 6720 (BEAKER) (test code = [place] 1538) [address] POCT-GLUCOSE [id number] 07:00:00 Test Item Value Reference Range Interpretation Comments POC-GLUCOSE METER 159 mg/dL 70-[address] [facility] 6720 (BEAKER) (test code = [place] 1538) [address] BASIC METABOLIC [id number] 05:19:00 Test Item Value Reference Range Interpretation [...] S NOT APPLICABLE FOR DIALYSIS PATIEN TS. [id number] 05:18:00 Test Item Value Reference Range Interpretation Comments MAGNESIUM (BEAKER) (test code = 1.9 mg/dL 1.6-2.6 627) PROTHROMBIN [id number] 05:03:00 Test Item Value Reference Range Interpretation [...] code = 416) BASOPHILS ABSOLUTE COUNT ([facility]) 0.07 K/ L 0.01-0.08 (test code = 417) IMMATURE GRANULOCYTES-RELATIVE 2 % 0-1 H PERCENT (ZOILA) (test code = 2801) POCT-GLUCOSE [id number] 23:35:00 Test Item Value Reference Range Interpretation Comments POC-GLUCOSE METER 190 mg/dL 70-[address] [facility] 6720 ([facility]) (test code = [place] 1538) [address] POCT-GLUCOSE [id number] 17:16:00 Test Item Value Reference Range Interpretation Comments POC-GLUCOSE METER 122 mg/dL 70-[address] [facility] 6720 ([facility]) (test code = [place] [facility] 1538) [address] U/S, TESTICULAR (SCROTUM)2018-05-21 14:53:00Reason for exam:->testicular swellingFINAL [...] MDReport Verified Date/Time: 05/21/2018 14:53:00 Reading Location: [facility] P006J UltrasoundReading Room POCT- GLUCOSE [id number] 11:22:00 Test Item Value Reference Range Interpretation Comments POC-GLUCOSE METER 144 mg/dL 70-[address] [facility] 6720 (BEAKER) (test code = [place] 1538) [address] POCT-GLUCOSE [id number] 07:05:00 Test Item Value Reference Range Interpretation Comments POC-GLUCOSE METER 171 mg/dL 70-[address] [facility] 6720 (BEAKER) (test code = [place] 1538) [address] BASIC METABOLIC [id number] 06:19:00 Test Item Value Reference Range Interpretation [...] S NOT APPLICABLE FOR DIALYSIS PATIEN TS. [id number] 06:04:00 Test Item Value Reference Range Interpretation Comments MAGNESIUM (BEAKER) (test code = 1.9 mg/dL 1.6-2.6 627) PROTHROMBIN [id number] 05:31:00 Test Item Value Reference Range Interpretation [...] ABSOLUTE COUNT 0.88 K/ L 1.32-3.57 L (AKER) (test code = 414) MONOCYTES ABSOLUTE COUNT (BEAKER) 0.95 K/ L 0.30-0.82 H (test code = 415) EOSINOPHILS ABSOLUTE COUNT 0.16 K/ L 0.04-0.54 (BEAKER) (test code = 416) BASOPHILS ABSOLUTE COUNT (BEAKER) 0.05 K/ L 0.01-0.08 (test code = 417) IMMATURE GRANULOCYTES-RELATIVE 1 % 0-1 PERCENT ([facility]) (test code = 2801) POCT-GLUCOSE [id number] 21:29:00 Test Item Value Reference Range Interpretation Comments POC-GLUCOSE METER 156 mg/dL 70-[address] [facility] 67 ([facility]) (test code = [facility] 1538) [address] POCT-GLUCOSE [id number] 18:14:00 Test Item Value Reference Range Interpretation Comments POC-GLUCOSE METER 93 mg/dL 70-[address] [facility] 67 ([facility]) (test code = [facility] [address] 1538) PROTHROMBIN [id number] 13:26:00 Test Item Value Reference Range Interpretation Comments PROTIME ([facility]) (test code = 42.0 seconds 11.7-14.7 H 759) INR ([facility]) (test code = 370) 4.4 <=5.9 RECOMMENDED COUMADIN/WARFARIN INR THERAPY RANGESSTANDARD DOSE: 2.0 - 3.0 Includes: PROPHYLAXIS forvenous thrombosis, systemic embolization; TREATMENT for venous thrombosis and/or pulmonary embolus.HIGH RISK: Target INR is 2.5-3.5 for patients with mechanical heart valves.LACTIC ACID, VENOUS, WHOLE BLOOD 2018-05-20 13:18:00 Test Item Value Reference Range Interpretation Comments LACTATE BLOOD VENOUS (2) ([facility]) 0.8 mmol/L 0.5-2.2 (test code = 2872) Effective 01/04/2016: Units/Reference Range ChangeNew: 0.5-2.2 mmol/L Previous: 5-20 mg/dLPOCT-GLUCOSE [id number] 12:04:00 Test Item Value Reference Range Interpretation Comments POC-GLUCOSE METER 111 mg/dL 70-[address] [facility] 6720 (BEAKER) (test code = [place] 1538) [address] CD4 T CELL [id number] 12:04:00 Test Item Value Reference Range Interpretation Comments CD4/CD8 RATIO FC (BEAKER) (test code = 0.76 0.70-3.23 5375) HEPATITIS B SURFACE [id number] 11:32:00 Test Item Value Reference Range Interpretation Comments HEPATITIS B SURFACE ANTIGEN (2) Nonreactive Nonreactive (BEAKER) (test code = 2585) VANCOMYCIN LEVEL, [id number] 11:10:00 Test Item Value Reference Range Interpretation Comments VANCOMYCIN RANDOM (BEAKER) (test 20.7 ug/mL code = 523) Reference Range: No NormalsBASIC METABOLIC [id number] 09:19:00 Test Item Value Reference Range Interpretation [...] S NOT APPLICABLE FOR DIALYSIS PATIEN TS. [id number] 09:16:00 Test Item Value Reference Range Interpretation Comments MAGNESIUM (BEAKER) (test code = 2.1 mg/dL 1.6-2.6 627) RAD, CHEST, 1 VIEW, NON [id number] 07:56:00Reason for exam:->pleural effusion seen on outside hospital imagingShould this be performed at the bedside?->YesFINAL REPORT Chest one view compared to February 23 Discussion: Small effusions are similar. Replaced cardiac valve and atrial appendage clip noted. No pneumothorax. Unchanged cardiac pulmonary appearance. Signed: Rhea Colindres Verified Date/Time: 05/20/2018 07:56:50 Reading Location: [facility] Radiology Reading Room POCT-GLUCOSE [id number] 07:32:00 Test Item Value Reference Range Interpretation Comments POC-GLUCOSE METER 105 mg/dL 70-[address] [facility] 6720 (BEAKER) (test code = [place] 1538) [address] CBC W/PLT COUNT & AUTO [id number] 07:01:00 Test Item Value Reference Range Interpretation [...] (BEAKER) (test code = 2801) VANCOMYCIN LEVEL, [id number] 22:39:00 Test Item Value Reference Range Interpretation Comments VANCOMYCIN RANDOM (BEAKER) (test 22.0 ug/mL code = 523) Reference Range: No NormalsCOMPREHENSIVE METABOLIC [id number] 22:39:00 Test Item Value Reference Range Interpretation [...] S NOT APPLICABLE FOR DIALYSIS PATIEN TS. [id number] 22:38:00 Test Item Value Reference Range Interpretation Comments PHOSPHORUS (BEAKER) (test code = 4.5 mg/dL 2.3-4.7 604) [id number] 22:38:00 Test Item Value Reference Range Interpretation Comments MAGNESIUM (BEAKER) (test code = 2.0 mg/dL 1.6-2.6 627) [id number] 22:29:00 Test Item Value Reference Range Interpretation Comments PARTIAL THROMBOPLASTIN TIME 45.0 seconds 22.5-36.0 H (BEAKER) (test code = 760) PROTHROMBIN [id number] 22:28:00 Test Item Value Reference Range Interpretation Comments PROTIME (BEAKER) (test code = 48.1 seconds 11.7-14.7 H 759) INR (BEAKER) (test code = 370) 5.2 <=5.9 RECOMMENDED COUMADIN/WARFARIN INR THERAPY RANGESSTANDARD DOSE: 2.0 - 3.0 Includes: PROPHYLAXIS forvenous thrombosis, systemic embolization; TREATMENT for venous thrombosis and/or pulmonary embolus.HIGH RISK: Target INR is 2.5-3.5 for patients with mechanical heart valves.POCT-GLUCOSE [id number] 21:38:00 Test Item Value Reference Range Interpretation Comments POC-GLUCOSE METER 105 mg/dL 70-[address] [facility] 6720 ([facility]) (test code = [place] 1538) [address] XR Ankle Complete 3+ Views [id number] 22:30:07Patient: SALVATORE LUGO Date/Time05/12/2018 22:24 CDTReason for ExamFallReportEXAM: XR [...] pmXR Chest 1 View Frontal 2018-05-12 09:48:17Patient: SALVATORE LUGO Date/Time05/12/2018 09:30 CDTReason for ExamChest painReportCHEST [...] FSigned (Electronic Signature): 05/12/2018 9:48 amBASIC METABOLIC [id number] 11:15:00 Test Item Value Reference Range Interpretation [...] (BEAKER) (test code = 700) BASIC METABOLIC [id number] 02:55:00 Test Item Value Reference Range Interpretation [...] H (BEAKER) (test code = 700) TROPONIN [id number] 02:30:00 Test Item Value Reference Range Interpretation [...] failure, acidosis, acute neurological disease, and persistent tachyarrhythmia.[id number] 02:21:00 Test Item Value Reference Range Interpretation Comments MAGNESIUM (BEAKER) (test code = 1.8 mg/dL 1.6-2.6 627) CBC W/PLT COUNT & AUTO [id number] 00:24:00 Test Item Value Reference Range Interpretation [...] 0-1 PERCENT (BEAKER) (test code = 2801) [id number] 00:01:00 Test Item Value Reference Range Interpretation [...] mechanical heart valves.RAD, CHEST, 1 VIEW, NON [id number] 23:39:00Reason for exam:->chest painShould this be performed [...] [place] Verified Date/Time: 02/23/2018 23:39:58 Reading Location: [address] Reading Room POCT-GLUCOSE [id number] 19:47:00 Test Item Value Reference Range Interpretation Comments POC-GLUCOSE METER 94 mg/dL 70-110 TESTED AT [place] [address] ([facility]) (test code = [facility] [address] 1538) POCT-GLUCOSE [id number] 17:07:00 Test Item Value Reference Range Interpretation Comments POC-GLUCOSE METER 176 mg/dL 70-110 H TESTED AT [place] [address] ([facility]) (test code = [facility] 1538) [address] POCT-GLUCOSE [id number] 12:31:00 Test Item Value Reference Range Interpretation Comments POC-GLUCOSE METER 84 mg/dL 70-110 TESTED AT [place] [address] ([facility]) (test code = [facility] [address] 1538) [id number] 10:40:00 Test Item Value Reference Range Interpretation Comments PARTIAL THROMBOPLASTIN TIME 88.5 seconds 22.5-36.0 H ([facility]) (test code = 760) OCCULT BLOOD, [id number] 09:36:00 Test Item Value Reference Range Interpretation Comments FECAL OCCULT BLOOD ([facility]) (test Negative Negative code = 618) POCT-GLUCOSE [id number] 08:51:00 Test Item Value Reference Range Interpretation Comments POC-GLUCOSE METER 223 mg/dL 70-110 H TESTED AT [place] [address] ([facility]) (test code = [facility] 1538) [address] [id number] 04:14:00 Test Item Value Reference Range Interpretation Comments PARTIAL THROMBOPLASTIN TIME 80.3 seconds 22.5-36.0 H ([facility]) (test code = 760) While on warfarin.PROTHROMBIN TIME/[id number] 04:13:00 Test Item Value Reference Range Interpretation Comments PROTIME ([facility]) (test code = 23.8 seconds 11.7-14.7 H 759) INR ([facility]) (test code = 370) 2.1 <=5.9 RECOMMENDED COUMADIN/WARFARIN INR THERAPY RANGESSTANDARD DOSE: 2.0 - 3.0 Includes: PROPHYLAXIS forvenous thrombosis, systemic embolization; TREATMENT for venous thrombosis and/or pulmonary embolus.HIGH RISK: Target INR is 2.5-3.5 for patients with mechanical heart valves.While on warfarin.POCT-GLUCOSE METER 2018-02-02 21:56:00 Test Item Value Reference Range Interpretation Comments POC-GLUCOSE METER 206 mg/dL 70-110 H TESTED AT [place] [address] ([facility]) (test code = [place] 1538) [address] [id number] 19:50:00 Test Item Value Reference Range Interpretation Comments PARTIAL THROMBOPLASTIN TIME 59.7 seconds 22.5-36.0 H ([facility]) (test code = 760) POCT-GLUCOSE [id number] 17:00:00 Test Item Value Reference Range Interpretation Comments POC-GLUCOSE METER 183 mg/dL 70-110 H TESTED AT [place] [address] ([facility]) (test code = [place] 1538) [address] [id number] 12:45:00 Test Item Value Reference Range Interpretation Comments PARTIAL THROMBOPLASTIN TIME 89.5 seconds 22.5-36.0 H ([facility]) (test code = 760) CBC W/PLT COUNT & AUTO [id number] 12:04:00 Test Item Value Reference Range Interpretation [...] WBC 0-0 (test code = 413) POCT-GLUCOSE [id number] 11:54:00 Test Item Value Reference Range Interpretation Comments POC-GLUCOSE METER 124 mg/dL 70-110 H TESTED AT [place] [address] ([facility]) (test code = [facility] 1538) [address] POCT-GLUCOSE [id number] 07:48:00 Test Item Value Reference Range Interpretation Comments POC-GLUCOSE METER 178 mg/dL 70-110 H TESTED AT [place] [address] ([facility]) (test code = [facility] 1538) [address] BASIC METABOLIC [id number] 05:15:00 Test Item Value Reference Range Interpretation [...] S NOT APPLICABLE FOR DIALYSIS PATIEN TS. [id number] 04:51:00 Test Item Value Reference Range Interpretation Comments MAGNESIUM (BEAKER) (test code = 1.8 mg/dL 1.6-2.6 627) [id number] 04:36:00 Test Item Value Reference Range Interpretation Comments PARTIAL THROMBOPLASTIN TIME 91.9 seconds 22.5-36.0 H (BEAKER) (test code = 760) While on warfarin.PROTHROMBIN TIME/[id number] 04:34:00 Test Item Value Reference Range Interpretation [...] METER 126 mg/dL 70-110 H TESTED AT [place] [address] ([facility]) (test code = [place] [facility] 1538) [address] [id number] 21:23:00 Test Item Value Reference Range Interpretation Comments PARTIAL THROMBOPLASTIN TIME 84.1 seconds 22.5-36.0 H ([facility]) (test code = 760) POCT-GLUCOSE [id number] 16:57:00 Test Item Value Reference Range Interpretation Comments POC-GLUCOSE METER 156 mg/dL 70-110 H TESTED AT [place] [address] ([facility]) (test code = [place] 1538) [address] [id number] 14:11:00 Test Item Value Reference Range Interpretation Comments PARTIAL THROMBOPLASTIN TIME 96.5 seconds 22.5-36.0 H ([facility]) (test code = 760) POCT-GLUCOSE [id number] 08:24:00 Test Item Value Reference Range Interpretation Comments POC-GLUCOSE METER 169 mg/dL 70-110 H TESTED AT [place] [address] ([facility]) (test code = [place] 1538) [address] POCT-GLUCOSE [id number] 06:49:00 Test Item Value Reference Range Interpretation Comments POC-GLUCOSE METER 172 mg/dL 70-110 H TESTED AT [place] [address] ([facility]) (test code = [place] [facility] 1538) [address] [id number] 04:59:00 Test Item Value Reference Range Interpretation Comments PARTIAL THROMBOPLASTIN TIME 64.7 seconds 22.5-36.0 H ([facility]) (test code = 760) While on warfarin.PROTHROMBIN [id number] 04:57:00 Test Item Value Reference Range Interpretation Comments PROTIME ([facility]) (test code = 17.5 seconds 11.7-14.7 H 759) INR ([facility]) (test code = 370) 1.4 <=5.9 RECOMMENDED COUMADIN/WARFARIN INR THERAPY RANGESSTANDARD DOSE: 2.0 - 3.0 Includes: PROPHYLAXIS forvenous thrombosis, systemic embolization; TREATMENT for venous thrombosis and/or pulmonary embolus.HIGH RISK: Target INR is 2.5-3.5 for patients with mechanical heart valves.While on warfarin.[id number] 21:55:00 Test Item Value Reference Range Interpretation Comments PARTIAL THROMBOPLASTIN TIME 68.8 seconds 22.5-36.0 H ([facility]) (test code = 760) [id number] 13:54:00 Test Item Value Reference Range Interpretation Comments PARTIAL THROMBOPLASTIN TIME 51.7 seconds 22.5-36.0 H ([facility]) (test code = 760) POCT-GLUCOSE [id number] 11:56:00 Test Item Value Reference Range Interpretation Comments POC-GLUCOSE METER 101 mg/dL 70-110 TESTED AT [place] [address] ([facility]) (test code = [place] [facility] 1538) [address] POCT-GLUCOSE [id number] 07:58:00 Test Item Value Reference Range Interpretation Comments POC-GLUCOSE METER 111 mg/dL 70-110 H TESTED AT [place] [address] ([facility]) (test code = [place] [facility] 1538) [address] BASIC METABOLIC [id number] 05:35:00 Test Item Value Reference Range Interpretation Comments SODIUM ([facility]) 132 meq/L 136-145 L (test [...] S NOT APPLICABLE FOR DIALYSIS PATIEN TS. [id number] 05:34:00 Test Item Value Reference Range Interpretation Comments PHOSPHORUS (BEAKER) (test code = 4.2 mg/dL 2.3-4.7 604) [id number] 05:34:00 Test Item Value Reference Range Interpretation Comments MAGNESIUM (BEAKER) (test code = 1.7 mg/dL 1.6-2.6 627) PROTHROMBIN [id number] 05:24:00 Test Item Value Reference Range Interpretation Comments PROTIME (BEAKER) (test code = 18.8 seconds 11.7-14.7 H 759) INR (BEAKER) (test code = 370) 1.6 <=5.9 RECOMMENDED COUMADIN/WARFARIN INR THERAPY RANGESSTANDARD DOSE: 2.0 - 3.0 Includes: PROPHYLAXIS forvenous thrombosis, systemic embolization; TREATMENT for venous thrombosis and/or pulmonary embolus.HIGH RISK: Target INR is 2.5-3.5 for patients with mechanical heart valves.[id number] 05:05:00 Test Item Value Reference Range Interpretation Comments PARTIAL THROMBOPLASTIN TIME 96.6 seconds 22.5-36.0 H (BEAKER) (test code = 760) CBC W/PLT COUNT & AUTO [id number] 04:54:00 Test Item Value Reference Range Interpretation [...] (BEAKER) (test code = 2801) OCCULT BLOOD, [id number] 22:44:00 Test Item Value Reference Range Interpretation Comments FECAL OCCULT BLOOD (BEAKER) (test Positive Negative A code = 618) [id number] 21:14:00 Test Item Value Reference Range Interpretation Comments PARTIAL THROMBOPLASTIN TIME 69.1 seconds 22.5-36.0 H (BEAKER) (test code = 760) POCT-GLUCOSE [id number] 20:49:00 Test Item Value Reference Range Interpretation Comments POC-GLUCOSE METER 160 mg/dL 70-110 H TESTED AT [place] [address] ([facility]) (test code = [facility] Humberto [facility] 1538) [address] POCT-GLUCOSE [id number] 17:59:00 Test Item Value Reference Range Interpretation Comments POC-GLUCOSE METER 128 mg/dL 70-110 H TESTED AT [place] [address] ([facility]) (test code = [facility] [place] [facility] 1538) [address] POCT-GLUCOSE [id number] 13:31:00 Test Item Value Reference Range Interpretation Comments POC-GLUCOSE METER 70 mg/dL 70-110 TESTED AT [place] [address] ([facility]) (test code = [facility] H[place] [facility] [address] 1538) [id number] 13:16:00 Test Item Value Reference Range Interpretation Comments PARTIAL THROMBOPLASTIN TIME 78.3 seconds 22.5-36.0 H ([facility]) (test code = 760) POCT-GLUCOSE [id number] 12:47:00 Test Item Value Reference Range Interpretation Comments POC-GLUCOSE METER 49 mg/dL 70-110 L TESTED AT [place] [address] ([facility]) (test code = [facility] [place] [facility] [address] 1538) POCT-GLUCOSE [id number] 09:05:00 Test Item Value Reference Range Interpretation Comments POC-GLUCOSE METER 306 mg/dL 70-110 H TESTED AT [place] [address] ([facility]) (test code = [facility] [place] [facility] 1538) [address] OCCULT BLOOD, [id number] 06:52:00 Test Item Value Reference Range Interpretation Comments FECAL OCCULT BLOOD (BEAKER) (test Positive Negative A code = 618) [id number] 05:42:00 Test Item Value Reference Range Interpretation [...] 20-55 (test code = 2590) BASIC METABOLIC [id number] 03:53:00 Test Item Value Reference Range Interpretation [...] S NOT APPLICABLE FOR DIALYSIS PATIEN TS. [id number] 03:51:00 Test Item Value Reference Range Interpretation Comments PHOSPHORUS (BEAKER) (test code = 3.2 mg/dL 2.3-4.7 604) [id number] 03:51:00 Test Item Value Reference Range Interpretation Comments PARTIAL THROMBOPLASTIN TIME 122.0 seconds 22.5-36.0 H (BEAKER) (test code = 760) While on warfarin.PROTHROMBIN TIME/[id number] 03:48:00 Test Item Value Reference Range Interpretation Comments PROTIME (BEAKER) (test code = 16.3 seconds 11.7-14.7 H 759) INR (BEAKER) (test code = 370) 1.3 <=5.9 RECOMMENDED COUMADIN/WARFARIN INR THERAPY RANGESSTANDARD DOSE: 2.0 - 3.0 Includes: PROPHYLAXIS forvenous thrombosis, systemic embolization; TREATMENT for venous thrombosis and/or pulmonary embolus.HIGH RISK: Target INR is 2.5-3.5 for patients with mechanical heart valves.While on warfarin.[id number] 03:44:00 Test Item Value Reference Range Interpretation Comments MAGNESIUM (BEAKER) (test code = 1.7 mg/dL 1.6-2.6 627) CBC W/PLT COUNT & AUTO [id number] 03:38:00 Test Item Value Reference Range Interpretation [...] PERCENT (BEAKER) (test code = 2801) POCT-GLUCOSE [id number] 23:35:00 Test Item Value Reference Range Interpretation Comments POC-GLUCOSE METER 149 mg/dL 70-110 H TESTED AT [place] [address] ([facility]) (test code = [facility] 1538) [address] [id number] 20:08:00 Test Item Value Reference Range Interpretation Comments PARTIAL THROMBOPLASTIN TIME 55.6 seconds 22.5-36.0 H (BEAKER) (test code = 760) [id number] 15:10:00 Test Item Value Reference Range Interpretation Comments PARTIAL THROMBOPLASTIN TIME 81.4 seconds 22.5-36.0 H (BEAKER) (test code = 760) POCT-GLUCOSE [id number] 11:58:00 Test Item Value Reference Range Interpretation Comments POC-GLUCOSE METER 124 mg/dL 70-110 H TESTED AT [place] [address] ([facility]) (test code = [facility] 1538) [address] RAD, CHEST, 1 VIEW, NON [id number] 08:59:00Reason for exam:->s/p mvrShould this be performed at the bedside?->YesFINAL REPORT Chest one view compared to January 24 Discussion: Left IJ line, atrial appendage clip, cardiac valve replacement noted. Mild interstitial congestion. No gross effusion or pneumothorax. IMPRESSIONS: No significant change Signed: Rhea Colindres Verified Date/Time:01/29/2018 08:59:39 Reading Location: [facility] Reading Room POCT-GLUCOSE [id number] 07:41:00 Test Item Value Reference Range Interpretation Comments POC-GLUCOSE METER 113 mg/dL 70-[address] [facility] 6720 (BEAKER) (test code = [place] 1538) [address] [id number] 07:23:00 Test Item Value Reference Range Interpretation Comments PARTIAL THROMBOPLASTIN TIME 89.8 seconds 22.5-36.0 H (BEAKER) (test code = 760) BASIC METABOLIC [id number] 06:05:00 Test Item Value Reference Range Interpretation [...] NOT APPLICABLE FOR DIALYSIS PATIEN TS. PROTHROMBIN [id number] 05:59:00 Test Item Value Reference Range Interpretation Comments PROTIME (BEAKER) (test code = 17.0 seconds 11.7-14.7 H 759) INR (BEAKER) (test code = 370) 1.4 <=5.9 RECOMMENDED COUMADIN/WARFARIN INR THERAPY RANGESSTANDARD DOSE: 2.0 - 3.0 Includes: PROPHYLAXIS forvenous thrombosis, systemic embolization; TREATMENT for venous thrombosis and/or pulmonary embolus.HIGH RISK: Target INR is 2.5-3.5 for patients with mechanical heart valves.While on warfarin.[id number] 05:56:00 Test Item Value Reference Range Interpretation Comments PHOSPHORUS (BEAKER) (test code = 5.3 mg/dL 2.3-4.7 H 604) [id number] 05:56:00 Test Item Value Reference Range Interpretation Comments MAGNESIUM (BEAKER) (test code = 1.9 mg/dL 1.6-2.6 627) CBC W/PLT COUNT & AUTO [id number] 05:38:00 Test Item Value Reference Range Interpretation [...] 0-1 PERCENT (BEAKER) (test code = 2801) [id number] 01:07:00 Test Item Value Reference Range Interpretation Comments PARTIAL THROMBOPLASTIN TIME 63.5 seconds 22.5-36.0 H (BEAKER) (test code = 760) [id number] 18:24:00 Test Item Value Reference Range Interpretation Comments PARTIAL THROMBOPLASTIN TIME 56.6 seconds 22.5-36.0 H (BEAKER) (test code = 760) POCT-GLUCOSE [id number] 18:14:00 Test Item Value Reference Range Interpretation Comments POC-GLUCOSE METER 101 mg/dL 70-110 TESTED AT [place] [address] (BEAKER) (test code = [place] 1538) [address] [id number] 13:57:00 Test Item Value Reference Range Interpretation Comments PARTIAL THROMBOPLASTIN TIME 122.3 seconds 22.5-36.0 H (BEAKER) (test code = 760) POCT-GLUCOSE [id number] 13:08:00 Test Item Value Reference Range Interpretation Comments POC-GLUCOSE METER 105 mg/dL 70-[address] [facility] 6720 (BEAKER) (test code = [place] 1538) [address] BASIC METABOLIC [id number] 04:31:00 Test Item Value Reference Range Interpretation Comments SODIUM (BEAKER) 136 meq/L 136-145 (test code = 381) POTASSIUM (BEAKER) 3.7 meq/L 3.5-5.1 (test code = 379) CHLORIDE (BEAKER) 98 meq/L 98-107 (test code = 382) CO2 (BEAKER) (test 27 meq/L -29 code = 355) BLOOD UREA NITROGEN 23 [...] S NOT APPLICABLE FOR DIALYSIS PATIEN TS. [id number] 04:28:00 Test Item Value Reference Range Interpretation Comments PHOSPHORUS (BEAKER) (test code = 3.9 mg/dL 2.3-4.7 604) [id number] 04:28:00 Test Item Value Reference Range Interpretation Comments MAGNESIUM (BEAKER) (test code = 1.7 mg/dL 1.6-2.6 627) HEPATIC FUNCTION [id number] 04:28:00 Test Item Value Reference Range Interpretation [...] (test code = 33 U/L 6-55 347) [id number] 04:20:00 Test Item Value Reference Range Interpretation Comments PARTIAL THROMBOPLASTIN TIME 106.2 seconds 22.5-36.0 H (BEAKER) (test code = 760) While on warfarin.PROTHROMBIN TIME/[id number] 04:15:00 Test Item Value Reference Range Interpretation [...] valves.While on warfarin.CBC W/PLT COUNT & AUTO [id number] 04:05:00 Test Item Value Reference Range Interpretation [...] PERCENT (AKER) (test code = 2801) POCT-GLUCOSE [id number] 00:29:00 Test Item Value Reference Range Interpretation Comments POC-GLUCOSE METER 119 mg/dL 70-110 H TESTED AT [place] [address] ([facility]) (test code = [place] 1538) [address] [id number] 00:24:00 Test Item Value Reference Range Interpretation Comments PARTIAL THROMBOPLASTIN TIME 72.4 seconds 22.5-36.0 H ([facility]) (test code = 760) POCT-GLUCOSE [id number] 18:33:00 Test Item Value Reference Range Interpretation Comments POC-GLUCOSE METER 158 mg/dL 70-110 H TESTED AT [place] [address] ([facility]) (test code = [place] 1538) [address] [id number] 18:22:00 Test Item Value Reference Range Interpretation Comments PARTIAL THROMBOPLASTIN TIME 78.6 seconds 22.5-36.0 H ([facility]) (test code = 760) POCT-GLUCOSE [id number] 12:20:00 Test Item Value Reference Range Interpretation Comments POC-GLUCOSE METER 110 mg/dL 70-110 TESTED AT [place] [address] ([facility]) (test code = [place] 1538) [address] [id number] 12:04:00 Test Item Value Reference Range Interpretation Comments PARTIAL THROMBOPLASTIN TIME 98.0 seconds 22.5-36.0 H ([facility]) (test code = 760) [id number] 04:11:00 Test Item Value Reference Range Interpretation [...] heart valves.While on warfarin.While on warfarin. PROTHROMBIN TIME/[id number] 04:10:00 Test Item Value Reference Range Interpretation Comments PROTIME (BEAKER) (test code = 15.2 seconds 11.7-14.7 H 759) INR (BEAKER) (test code = 370) 1.2 <=5.9 RECOMMENDED COUMADIN/WARFARIN INR THERAPY RANGESSTANDARD DOSE: 2.0 - 3.0 Includes: PROPHYLAXIS forvenous thrombosis, systemic embolization; TREATMENT for venous thrombosis and/or pulmonary embolus.HIGH RISK: Target INR is 2.5-3.5 for patients with mechanical heart valves.BASIC METABOLIC [id number] 03:53:00 Test Item Value Reference Range Interpretation [...] PATIEN TS. CBC W/PLT COUNT & AUTO [id number] 03:50:00 Test Item Value Reference Range Interpretation [...] H PERCENT (BEAKER) (test code = 2801) [id number] 03:45:00 Test Item Value Reference Range Interpretation Comments PHOSPHORUS (BEAKER) (test code = 4.7 mg/dL 2.3-4.7 604) [id number] 03:45:00 Test Item Value Reference Range Interpretation Comments MAGNESIUM (BEAKER) (test code = 2.0 mg/dL 1.6-2.6 627) HEPATIC FUNCTION [id number] 03:45:00 Test Item Value Reference Range Interpretation [...] (test code = 36 U/L 6-55 347) [id number] 22:16:00 Test Item Value Reference Range Interpretation Comments PARTIAL THROMBOPLASTIN TIME 60.7 seconds 22.5-36.0 H (BEAKER) (test code = 760) POCT-GLUCOSE [id number] 18:32:00 Test Item Value Reference Range Interpretation Comments POC-GLUCOSE METER 125 mg/dL 70-[address] [facility] 6720 (BEAKER) (test code = [place] 1538) [address] CBC (HEMOGRAM ONLY)2018-01-26 17:21:00 Test Item Value [...] (BEAKER) (test code = 413) BASIC METABOLIC [id number] 07:16:00 Test Item Value Reference Range Interpretation [...] S NOT APPLICABLE FOR DIALYSIS PATIEN TS. [id number] 07:13:00 Test Item Value Reference Range Interpretation Comments PHOSPHORUS (BEAKER) (test code = 4.3 mg/dL 2.3-4.7 604) [id number] 07:13:00 Test Item Value Reference Range Interpretation Comments MAGNESIUM (BEAKER) (test code = 2.0 mg/dL 1.6-2.6 627) HEPATIC FUNCTION [id number] 07:13:00 Test Item Value Reference Range Interpretation [...] (test code = 37 U/L 6-55 347) [id number] 07:12:00 Test Item Value Reference Range Interpretation [...] PERCENT (BEAKER) (test code = 2801) BLOOD [id number] 00:00:00 Test Item Value Reference Range Interpretation Comments CULTURE (BEAKER) (test No growth in 5 days code = 1095) BLOOD [id number] 00:00:00 Test Item Value Reference Range Interpretation Comments CULTURE (BEAKER) (test No growth in 5 days code = 1095) POCT-GLUCOSE [id number] 23:37:00 Test Item Value Reference Range Interpretation Comments POC-GLUCOSE METER 87 mg/dL 70-110 TESTED AT [place] [address] ([facility]) (test code = [facility] [address] 1538) [id number] 23:06:00 Test Item Value Reference Range Interpretation Comments PARTIAL THROMBOPLASTIN TIME 81.8 seconds 22.5-36.0 H (BEAKER) (test code = 760) POCT-GLUCOSE [id number] 20:42:00 Test Item Value Reference Range Interpretation Comments POC-GLUCOSE METER 193 mg/dL 70-110 H TESTED AT [place] [address] ([facility]) (test code = [facility] 1538) [address] HEMOGLOBIN AND [id number] 17:40:00 Test Item Value Reference Range Interpretation Comments HEMOGLOBIN (BEAKER) (test code = 8.4 GM/DL 13.7-17.5 L 410) HEMATOCRIT (BEAKER) (test code = 25.4 % 40.1-51.0 L 411) [id number] 13:06:00 Test Item Value Reference Range Interpretation Comments PARTIAL THROMBOPLASTIN TIME 61.4 seconds 22.5-36.0 H (BEAKER) (test code = 760) POCT-GLUCOSE [id number] 12:56:00 Test Item Value Reference Range Interpretation Comments POC-GLUCOSE METER 116 mg/dL 70-110 H TESTED AT [place] [address] ([facility]) (test code = [facility] 1538) [address] [id number] 06:43:00 Test Item Value Reference Range Interpretation [...] 37 % 20-55 (test code = 2590) [id number] 05:32:00 Test Item Value Reference Range Interpretation Comments PARTIAL THROMBOPLASTIN TIME 63.7 seconds 22.5-36.0 H (BEAKER) (test code = 760) BASIC METABOLIC [id number] 05:03:00 Test Item Value Reference Range Interpretation [...] APPLICABLE FOR DIALYSIS PATIEN TS. HEPATIC FUNCTION [id number] 05:00:00 Test Item Value Reference Range Interpretation [...] (test code = 41 U/L 6-55 347) [id number] 04:40:00 Test Item Value Reference Range Interpretation [...] 0-0 (BEAKER) (test code = 413) POCT-GLUCOSE [id number] 00:30:00 Test Item Value Reference Range Interpretation Comments POC-GLUCOSE METER 112 mg/dL 70-110 H TESTED AT [facility] 6720 (BEAKER) (test code = [place] 1538) [address] CBC W/PLT COUNT & AUTO [id number] 19:16:00 Test Item Value Reference Range Interpretation [...] IMMATURE GRANULOCYTES-RELATIVE 1 % 0-1 PERCENT ([facility]) (test code = 2801) POCT-GLUCOSE [id number] 18:27:00 Test Item Value Reference Range Interpretation Comments POC-GLUCOSE METER 102 mg/dL 70-[address] [facility] 67 ([facility]) (test code = [place] [facility] 1538) [address] POCT-GLUCOSE [id number] 13:01:00 Test Item Value Reference Range Interpretation Comments POC-GLUCOSE METER 119 mg/dL 70-110 H TESTED AT [place] [address] ([facility]) (test code = [place] [facility] 1538) [address] RAD, CHEST, 1 VIEW, NON [id number] 10:59:00Reason for exam:->ptxShould this be performed at [...] Date/Time: 01/24/2018 10:59:29 Reading Location: [facility] Diagnostic Imaging Reading Room - [place] [address] BRONCHIAL CULTURE + GRAM STAIN 2018-01-24 08:53:00 Test Item Value Reference Range Interpretation Comments CULTURE (BEAKER) 2+ Normal respiratory (test code = 1095) pete present GRAM STAIN RESULT 4+ White blood cells (BEAKER) (test code = seen 1123) GRAM STAIN RESULT No organisms seen (BEAKER) (test code = 48486) POCT-GLUCOSE [id number] 06:28:00 Test Item Value Reference Range Interpretation Comments POC-GLUCOSE METER 119 mg/dL 70-[address] [facility] 6720 (BEAKER) (test code = [place] 1535) [address] BASIC METABOLIC [id number] 04:41:00 Test Item Value Reference Range Interpretation [...] WBC 0-0 (BEAKER) (test code = 413) [id number] 04:21:00 Test Item Value Reference Range Interpretation Comments MAGNESIUM (BEAKER) (test code = 2.0 mg/dL 1.6-2.6 627) HEPATIC FUNCTION [id number] 04:21:00 Test Item Value Reference Range Interpretation [...] = 36 U/L 6-55 347) Specimen slightly [id number] 04:13:00 Test Item Value Reference Range Interpretation Comments PARTIAL THROMBOPLASTIN TIME 72.1 seconds 22.5-36.0 H (BEAKER) (test code = 760) BLOOD GAS, [id number] 04:13:00 Test Item Value Reference Range Interpretation [...] (test code = 1819) 100.0 % POCT-GLUCOSE [id number] 00:08:00 Test Item Value Reference Range Interpretation Comments POC-GLUCOSE METER 150 mg/dL 70-110 H TESTED AT [place] [address] ([facility]) (test code = [facility] 1538) [address] POCT-GLUCOSE [id number] 18:45:00 Test Item Value Reference Range Interpretation Comments POC-GLUCOSE METER 162 mg/dL 70-110 H TESTED AT [place] [address] ([facility]) (test code = [facility] 1538) [address] POCT-GLUCOSE [id number] 13:14:00 Test Item Value Reference Range Interpretation Comments POC-GLUCOSE METER 176 mg/dL 70-110 H TESTED AT [place] [address] ([facility]) (test code = [facility] 1538) [address] POCT-GLUCOSE [id number] 10:44:00 Test Item Value Reference Range Interpretation Comments POC-GLUCOSE METER 146 mg/dL 70-110 H TESTED AT [place] [address] ([facility]) (test code = [facility] 1538) [address] BLOOD GAS, [id number] 10:32:00 Test Item Value Reference Range Interpretation [...] 40.0 % RAD, CHEST, 1 VIEW, NON [id number] 09:14:00Reason for exam:->ptxShould this be performed at [...] KYLE ROME M.D. on 01/23/2018 09:14 AMBLOOD [id number] 08:09:00 Test Item Value Reference Range Interpretation Comments CULTURE (BEAKER) A From Aerobi c Bottle (test code = Only [place] 1095) species GRAM STAIN From aerobic RESULT (BEAKER) bottle only: gram (test code = positive rods 1123) NOT DETECTEDPanel is negative for GoodybagFire BCID-detectable organisms. Please refer to traditional culture and sensitivity results as they become available.Other organisms and resistance markers not contained in this PCR panel cannot be excluded and follow-up of traditional culture results is required. This sample was tested at the [facility] Clinical Microbiology Laboratory using the RoomClip FilmArray Blood Culture ID Panel. This test is FDA cleared for in vitro diagnostic use and has been verified and approved by the [facility] Clinical Microbiology laboratory for clinical use. Reference Range: Not DetectedBLOOD GAS, [id number] 04:45:00 Test Item Value Reference Range Interpretation [...] code = 1819) 40.0 % BASIC METABOLIC [id number] 04:39:00 Test Item Value Reference Range Interpretation [...] APPLICABLE FOR DIALYSIS PATIEN TS. Specimen slightly [id number] 04:35:00 Test Item Value Reference Range Interpretation Comments MAGNESIUM (BEAKER) (test code = 1.8 mg/dL 1.6-2.6 627) HEPATIC FUNCTION [id number] 04:35:00 Test Item Value Reference Range Interpretation [...] = 40 U/L 6-55 347) Specimen slightly [id number] 04:18:00 Test Item Value Reference Range Interpretation [...] WBC 0-0 (test code = 413) POCT-GLUCOSE [id number] 00:52:00 Test Item Value Reference Range Interpretation Comments POC-GLUCOSE METER 145 mg/dL 70-[address] [facility] 6720 ([facility]) (test code = [place] 1538) [address] BLOOD [id number] 00:00:00 Test Item Value Reference Range Interpretation Comments CULTURE ([facility]) (test No growth in 5 days code = 1095) POCT-GLUCOSE [id number] 18:17:00 Test Item Value Reference Range Interpretation Comments POC-GLUCOSE METER 97 mg/dL 70-[address] [facility] 6720 (BEAKER) (test code = [place] [address] 1538) POCT-GLUCOSE [id number] 13:26:00 Test Item Value Reference Range Interpretation Comments POC-GLUCOSE METER 138 mg/dL 70-110 H TESTED AT [place] [id number] (BEAKER) ([facility] = [facility] 1538) [address] BLOOD GAS, [id number] 10:32:00 Test Item Value Reference Range Interpretation [...] (test code = 1819) 40.0 % POCT-GLUCOSE [id number] 06:21:00 Test Item Value Reference Range Interpretation Comments POC-GLUCOSE METER 138 mg/dL 70-110 H TESTED AT [place] [id number] (BEAKER) (test code = [facility] Humberto [facility] 1538) [address] BASIC METABOLIC [id number] 04:25:00 Test Item Value Reference Range Interpretation [...] APPLICABLE FOR DIALYSIS PATIEN TS. Specimen slightly [id number] 04:24:00 Test Item Value Reference Range Interpretation Comments MAGNESIUM (BEAKER) (test code = 2.1 mg/dL 1.6-2.6 627) HEPATIC FUNCTION [id number] 04:24:00 Test Item Value Reference Range Interpretation [...] /100 WBC 0-0 (test code = 413) [id number] 04:07:00 Test Item Value Reference Range Interpretation Comments PARTIAL THROMBOPLASTIN TIME 80.2 seconds 22.5-36.0 H (BEAKER) (test code = 760) BLOOD GAS, [id number] 04:06:00 Test Item Value Reference Range Interpretation [...] 40.0 % RAD, CHEST, 1 VIEW, NON [id number] 03:32:00Reason for exam:->ptxShould this be performed at [...] changes.Additional findings: None. Signed: JR Lc, Juliana Cristy Verified Date/Time: 01/22/2018 03:32:38 Reading Location: [facility] C013Y CT Body Reading Room POCT-GLUCOSE [id number] 00:43:00 Test Item Value Reference Range Interpretation Comments POC-GLUCOSE METER 102 mg/dL 70-110 TESTED AT [place] [address] ([facility]) (test code = [facility] 1538) [address] [id number] 17:31:00 Test Item Value Reference Range Interpretation Comments PARTIAL THROMBOPLASTIN TIME 65.0 seconds 22.5-36.0 H ([facility]) (test code = 760) POCT-GLUCOSE [id number] 17:24:00 Test Item Value Reference Range Interpretation Comments POC-GLUCOSE METER 171 mg/dL 70-110 H TESTED AT [place] [address] ([facility]) (test code = [facility] 1538) [address] POCT-GLUCOSE [id number] 13:01:00 Test Item Value Reference Range Interpretation Comments POC-GLUCOSE METER 144 mg/dL 70-110 H TESTED AT [place] [address] ([facility]) (test code = [facility] 1538) [address] [id number] 11:12:00 Test Item Value Reference Range Interpretation Comments PARTIAL THROMBOPLASTIN TIME 67.9 seconds 22.5-36.0 H ([facility]) (test code = 760) RAD, CHEST, 1 VIEW, NON [id number] 08:01:00Reason for exam:->ptxShould this be performed at [...] MDReport Verified Date/Time: 01/21/2018 08:01:07 Reading Location: [facility] Reading Room POCT-GLUCOSE [id number] 06:50:00 Test Item Value Reference Range Interpretation Comments POC-GLUCOSE METER 149 mg/dL 70-[address] [facility] 6720 (BEAKER) (test code = [place] 1538) [address] CBC (HEMOGRAM ONLY)2018-01-21 04:20:00 Test Item Value [...] /100 WBC 0-0 (test code = 413) [id number] 04:03:00 Test Item Value Reference Range Interpretation Comments PARTIAL THROMBOPLASTIN TIME 51.2 seconds 22.5-36.0 H (BEAKER) (test code = 760) BASIC METABOLIC [id number] 04:01:00 Test Item Value Reference Range Interpretation [...] APPLICABLE FOR DIALYSIS PATIEN TS. Specimen moderately [id number] 03:59:00 Test Item Value Reference Range Interpretation Comments MAGNESIUM (BEAKER) (test code = 2.0 mg/dL 1.6-2.6 627) HEPATIC FUNCTION [id number] 03:59:00 Test Item Value Reference Range Interpretation [...] U/L 6-55 347) Specimen moderately ictericVANCOMYCIN LEVEL, [id number] 03:57:00 Test Item Value Reference Range Interpretation Comments VANCOMYCIN RANDOM (BEAKER) (test 18.3 ug/mL code = 523) Reference Range: No NormalsOXYGEN SATURATION, [id number] 03:32:00 Test Item Value Reference Range Interpretation Comments O2 SATURATION (MEASURED) (BEAKER) 86.3 % (test code = 1455) BLOOD GAS, [id number] 03:30:00 Test Item Value Reference Range Interpretation [...] (test code = 1819) 40.0 % POCT-GLUCOSE [id number] 23:43:00 Test Item Value Reference Range Interpretation Comments POC-GLUCOSE METER 143 mg/dL 70-110 H TESTED AT [place] [address] ([facility]) (test code = [place] [facility] 1538) [address] BLOOD [id number] 18:00:00 Test Item Value Reference Range Interpretation Comments CULTURE (BEAKER) (test No growth in 5 days code = 1095) BLOOD [id number] 18:00:00 Test Item Value Reference Range Interpretation Comments CULTURE (BEAKER) (test No growth in 5 days code = 1095) POCT-GLUCOSE [id number] 16:32:00 Test Item Value Reference Range Interpretation Comments POC-GLUCOSE METER 185 mg/dL 70-110 H TESTED AT [place] [address] ([facility]) (test code = [place] [facility] 1538) [address] MISCELLANEOUS LAB [id number] 15:04:00 Test Item Value Reference Range Interpretation Comments SCAN RESULT (test code = 9352837) Result comments: NOT DETECTED Panel is negative for BioFire BCID-detectable organisms. Please refer to traditional culture and sensitivity results as they become available. Other organisms and resistance markers not contained in this PCR panel cannot be excluded and follow-up of traditional culture results is required. This sample was tested at the [facility] Clinical Microbiology Laboratory using the VMLogixArray Blood Culture ID Panel. This test is FDA cleared for in vitro diagnostic use and hasbeen verified and approved by the [facility] Clinical Microbiology laboratory for clinical use. ReferenceRange: Not Detected POCT-GLUCOSE [id number] 12:25:00 Test Item Value Reference Range Interpretation Comments POC-GLUCOSE METER 116 mg/dL 70-[address] [facility] 6720 [facility] (test [facility] = [facility] 1538) [address] RAD, CHEST, 1 VIEW, NON [id number] 06:38:00Reason for exam:->pl effusionShould this be performed [...] MDReport Verified Date/Time: 01/20/2018 06:38:33 Reading Location: [address] Body Reading Room POCT-GLUCOSE [id number] 05:54:00 Test Item Value Reference Range Interpretation Comments POC-GLUCOSE METER 231 mg/dL 70-[address] [facility] 6720 [facility] (test code = [facility] 1538) [address] VANCOMYCIN LEVEL, [id number] 04:23:00 Test Item Value Reference Range Interpretation Comments VANCOMYCIN RANDOM (BEAKER) (test 25.8 ug/mL code = 523) Reference Range: No [id number] 04:17:00 Test Item Value Reference Range Interpretation Comments MAGNESIUM ([facility]) (test code = 2.0 mg/dL 1.6-2.6 627) HEPATIC FUNCTION [id number] 04:17:00 Test Item Value Reference Range Interpretation [...] 6-55 H 347) Specimen moderately ictericBASIC METABOLIC [id number] 04:17:00 Test Item Value Reference Range Interpretation [...] APPLICABLE FOR DIALYSIS PATIEN TS. Specimen moderately [id number] 04:05:00 Test Item Value Reference Range Interpretation Comments PARTIAL THROMBOPLASTIN TIME 69.7 seconds 22.5-36.0 H (BEAKER) (test code = 760) CBC W/PLT COUNT & AUTO [id number] 03:49:00 Test Item Value Reference Range Interpretation [...] (AKER) (test code = 2801) OXYGEN SATURATION, [id number] 03:48:00 Test Item Value Reference Range Interpretation Comments O2 SATURATION (MEASURED) ([facility]) 84.1 % (test code = 1455) POCT-GLUCOSE [id number] 23:14:00 Test Item Value Reference Range Interpretation Comments POC-GLUCOSE METER 248 mg/dL 70-110 H TESTED AT [place] [address] ([facility]) (test code = [facility] 1538) [address] POCT-GLUCOSE [id number] 18:56:00 Test Item Value Reference Range Interpretation Comments POC-GLUCOSE METER 213 mg/dL 70-110 H TESTED AT [place] [address] ([facility]) (test code = [facility] 1538) [address] POCT-GLUCOSE [id number] 14:06:00 Test Item Value Reference Range Interpretation Comments POC-GLUCOSE METER 210 mg/dL 70-110 H TESTED AT [place] [address] ([facility]) (test code = [facility] 1538) [address] SPUTUM CULTURE + GRAM [id number] 13:45:00 Test Item Value Reference Range Interpretation Comments CULTURE (BEAKER) 4+ Normal respiratory (test code = 1095) pete present GRAM STAIN RESULT 4+ WBCs (BEAKER) (test code = 1123) GRAM STAIN RESULT 0-5 epithelial cells (BEAKER) (test code = 52069) GRAM STAIN RESULT 3+ gram negative rods (BEAKER) (test code = 14900) GRAM STAIN RESULT 2+ gram positive cocci (BEAKER) (test code = in pairs and clusters 128522) [id number] 12:37:00 Test Item Value Reference Range Interpretation Comments PARTIAL THROMBOPLASTIN TIME 74.3 seconds 22.5-36.0 H (BEAKER) (test code = 760) CBC W/PLT COUNT & AUTO [id number] 10:52:00 Test Item Value Reference Range Interpretation [...] H (test code = 413) VANCOMYCIN LEVEL, [id number] 05:41:00 Test Item Value Reference Range Interpretation Comments VANCOMYCIN RANDOM (BEAKER) (test 27.9 ug/mL code = 523) Reference Range: No NormalsBASIC METABOLIC [id number] 05:39:00 Test Item Value Reference Range Interpretation [...] APPLICABLE FOR DIALYSIS PATIEN TS. Specimen moderately [id number] 05:36:00 Test Item Value Reference Range Interpretation Comments MAGNESIUM (BEAKER) (test code = 2.0 mg/dL 1.6-2.6 627) [id number] 05:36:00 Test Item Value Reference Range Interpretation Comments PHOSPHORUS (BEAKER) (test code = 3.9 mg/dL 2.3-4.7 604) HEPATIC FUNCTION [id number] 05:36:00 Test Item Value Reference Range Interpretation [...] 6-55 H 347) Specimen moderately ictericOXYGEN SATURATION, [id number] 05:33:00 Test Item Value Reference Range Interpretation [...] WBC 0-0 H (test code = 413) [id number] 05:24:00 Test Item Value Reference Range Interpretation Comments PARTIAL THROMBOPLASTIN TIME 68.1 seconds 22.5-36.0 H ([facility]) (test code = 760) RAD, CHEST, 1 VIEW, NON [id number] 04:41:00Reason for exam:->pl effusionShould this be performed at the bedside?->YesFINAL REPORT CLINICAL INDICATION: Support lines. Comparison: 01/18/2018 The ca rdiomediastinal contours are stable. Central pulmonary vascular congestion and bilateral parenchymalopacities are unchanged. There is no pneumothorax. Support lines are stable. Signed: Kellen Parra MDReport Verified Date/Time: 01/19/2018 04:41:27 Reading Location: [address] Reading Room APTT 2018-01-19 00:38:00 Test Item Value Reference Range Interpretation Comments PARTIAL THROMBOPLASTIN TIME 45.5 seconds 22.5-36.0 H ([facility]) (test code = 760) POCT-GLUCOSE [id number] 00:21:00 Test Item Value Reference Range Interpretation Comments POC-GLUCOSE METER 189 mg/dL 70-[address] [facility] 6720 ([facility]) (test code = [place] 1538) [address] POCT-GLUCOSE [id number] 23:34:00 Test Item Value Reference Range Interpretation Comments POC-GLUCOSE METER 162 mg/dL 70-[address] [facility] 6720 ([facility]) (test code = [place] 1538) [address] POCT-GLUCOSE [id number] 18:09:00 Test Item Value Reference Range Interpretation Comments POC-GLUCOSE METER 172 mg/dL 70-[address] [facility] 67 ([facility]) (test code = [place] 1538) [address] RAD, ABDOMEN/KUB, 1 VIEW [id number] 17:36:00Reason for exam:->ileusShould this be performed at the bedside?->YesFINAL REPORT Comparison: 01/17/2018 TECHNIQUE: Frontal image of the abdomen FINDINGS: There is a nonspecific bowel gas pattern. Tip of nasogastric projects in the distal stomach. No gross free intraperitoneal air. No acute skeletal abnormality. Signed: Kyle Rome MDRort Verified Date/Time: 01/18/2018 17:36:02 Reading Location: [address] Transitional Reading Room [id number] 17:10:00 Test Item Value Reference Range Interpretation Comments PARTIAL THROMBOPLASTIN TIME 27.8 seconds 22.5-36.0 (BEAKER) (test code = 760) Prior to initiating heparinPOCT-GLUCOSE [id number] 15:22:00 Test Item Value Reference Range Interpretation Comments POC-GLUCOSE METER 126 mg/dL 70-[address] [facility] 6720 ([facility]) (test code = [place] 1538) [address] [id number] 13:02:00 Test Item Value Reference Range Interpretation Comments PHOSPHORUS (BEAKER) (test code = 3.8 mg/dL 2.3-4.7 604) BASIC METABOLIC [id number] 13:02:00 Test Item Value Reference Range Interpretation [...] FOR DIALYSIS PATIEN TS. Specimen moderately ictericPOCT-GLUCOSE [id number] 12:11:00 Test Item Value Reference Range Interpretation Comments POC-GLUCOSE METER 113 mg/dL 70-[address] [facility] 6720 ([facility]) (test code = [place] 1538) [address] CBC W/PLT COUNT & AUTO [id number] 12:03:00 Test Item Value Reference Range Interpretation [...] = 413) RAD, CHEST, 1 VIEW, NON [id number] 09:44:00Reason for exam:->pl effusionShould this be performed [...] MDReport Verified Date/Time: 01/18/2018 09:44:26 Reading Location: [address] Transitional Reading Room SPUTUM CULTURE + GRAM [id number] 08:09:00 Test Item Value Reference Range Interpretation Comments CULTURE (BEAKER) 3+ Normal respiratory (test code = 1095) pete present GRAM STAIN RESULT 4+ WBCs (BEAKER) (test code = 1123) GRAM STAIN RESULT 0-5 epithelial cells (BEAKER) (test code = 66223) GRAM STAIN RESULT No organisms seen (BEAKER) (test code = 12835) POCT-GLUCOSE [id number] 07:52:00 Test Item Value Reference Range Interpretation Comments POC-GLUCOSE METER 146 mg/dL 70-[address] [facility] 6720 (BEAKER) (test code = [facility] [place] 1538) [address] POCT-GLUCOSE [id number] 06:30:00 Test Item Value Reference Range Interpretation Comments POC-GLUCOSE METER 135 mg/dL 70-[address] [facility] 6720 (BEAKER) (test code = [facility] [place] 1538) [address] POCT-GLUCOSE [id number] 06:30:00 Test Item Value Reference Range Interpretation Comments POC-GLUCOSE METER 130 mg/dL 70-[address] [facility] 6720 (BEAKER) (test code = [place] 1538) [address] [id number] 03:56:00 Test Item Value Reference Range Interpretation Comments PHOSPHORUS (BEAKER) (test code = 3.1 mg/dL 2.3-4.7 604) [id number] 03:56:00 Test Item Value Reference Range Interpretation Comments MAGNESIUM (BEAKER) (test code = 2.0 mg/dL 1.6-2.6 627) HEPATIC FUNCTION [id number] 03:56:00 Test Item Value Reference Range Interpretation [...] 6-55 H 347) Specimen moderately ictericVANCOMYCIN LEVEL, [id number] 03:53:00 Test Item Value Reference Range Interpretation Comments VANCOMYCIN RANDOM (BEAKER) (test 18.0 ug/mL code = 523) Reference Range: No [id number] 03:48:00 Test Item Value Reference Range Interpretation Comments CALCIUM (BEAKER) (test code = 697) 8.1 mg/dL 8.4-10.2 L CALCIUM, [id number] 03:34:00 Test Item Value Reference Range Interpretation Comments CALCIUM IONIZED (BEAKER) (test 1.06 mmol/L 1.12-1.27 L code = 698) PH, BLOOD (BEAKER) (test code = 7.38 1810) OXYGEN SATURATION, [id number] 03:33:00 Test Item Value Reference Range Interpretation Comments O2 SATURATION (MEASURED) (BEAKER) 85.8 % (test code = 1455) POCT-GLUCOSE [id number] 03:26:00 Test Item Value Reference Range Interpretation Comments POC-GLUCOSE METER 144 mg/dL 70-110 H TESTED AT [place] [address] ([facility]) (test code = [place] [facility] 1538) [address] POCT-GLUCOSE [id number] 03:26:00 Test Item Value Reference Range Interpretation Comments POC-GLUCOSE METER 163 mg/dL 70-110 H TESTED AT [place] [address] ([facility]) (test code = [facility] 1538) [address] POCT-GLUCOSE [id number] 01:04:00 Test Item Value Reference Range Interpretation Comments POC-GLUCOSE METER 159 mg/dL 70-110 H TESTED AT [place] [address] ([facility]) (test code = [facility] 1538) [address] POCT-GLUCOSE [id number] 00:12:00 Test Item Value Reference Range Interpretation Comments POC-GLUCOSE METER 132 mg/dL 70-110 H TESTED AT [place] [address] ([facility]) (test code = [facility] 1538) [address] LACTIC ACID, ARTERIAL, WHOLE [id number] 23:54:00 Test Item Value Reference Range Interpretation Comments LACTATE BLOOD ARTERIAL (2) 0.7 mmol/L 0.5-2.2 ([facility]) (test code = 2874) Effective 01/04/2016: Units/Reference Range ChangeNew: 0.5-2.2 mmol/L Previous: 5-20 mg/dLSpecimen moderately ictericPOTASSIUM-STAT [id number] 23:30:00 Test Item Value Reference Range Interpretation Comments POTASSIUM (BEAKER) (test code = 4.0 meq/L 3.6-5.5 379) BLOOD GAS, [id number] 23:30:00 Test Item Value Reference Range Interpretation Comments PH ARTERIAL (BEAKER) (test code = 7.45 7.35-7.45 383) PCO2 ARTERIAL (BEAKER) (test code 42 mmHg 35-45 = 384) PO2 ARTERIAL (BEAKER) (test code = 95 mmHg 80-90 H 385) O2 SATURATION ARTERIAL (BEAKER) 97.5 % 96.0-97.0 H (test code = 386) HCO3 ARTERIAL (BEAKER) (test code 29 mmol/L 29 = 388) BASE EXCESS ARTERIAL (BEAKER) 4.3 mmol/L -2.0-3.0 H (test code = 387) PATIENT TEMPERATURE (BEAKER) (test 37.1 C code = 1818) FIO2 (BEAKER) (test code = 1819) 50.0 % SODIUM NA-STAT [id number] 23:30:00 Test Item Value Reference Range Interpretation Comments SODIUM (BEAKER) (test code = 381) 134 meq/L 135-148 L GLUCOSE-STAT [id number] 23:30:00 Test Item Value Reference Range Interpretation Comments GLUCOSE RANDOM (BEAKER) (test code 138 mg/dL 70-110 H = 652) HGB/HCT (H&H) - STAT [id number] 23:30:00 Test Item Value Reference Range Interpretation Comments HEMOGLOBIN (BEAKER) (test code = 9.0 g/dL 13.0-16.8 L 410) HEMATOCRIT (BEAKER) (test code = 26.0 % 40.0-50.0 L 411) CALCIUM, [id number] 23:30:00 Test Item Value Reference Range Interpretation Comments CALCIUM IONIZED (BEAKER) (test 1.04 mmol/L 1.12-1.27 L code = 698) PH, BLOOD (BEAKER) (test code = 7.48 1810) OXYGEN SATURATION, [id number] 23:28:00 Test Item Value Reference Range Interpretation Comments O2 SATURATION (MEASURED) (BEAKER) 82.0 % (test code = 1455) POCT-GLUCOSE [id number] 21:35:00 Test Item Value Reference Range Interpretation Comments POC-GLUCOSE METER 99 mg/dL 70-[address] [facility] 6720 ([facility]) (test [facility] = [facility] [place] [address] 1538) POCT-GLUCOSE [id number] 21:35:00 Test Item Value Reference Range Interpretation Comments POC-GLUCOSE METER 111 mg/dL 70-[address] [facility] 6720 ([facility]) (test code = [facility] 1538) [address] RAD, CHEST, 1 VIEW, NON [id number] 17:08:00Reason for exam:->LIJ placment CVCShould this be [...] Vailepdamion Verified Date/Time: 01/17/2018 17:08:24 Reading Location: [facility] Radiology Reading Room GLUCOSE-STAT [id number] 16:33:00 Test Item Value Reference Range Interpretation Comments GLUCOSE RANDOM (BEAKER) (test code 147 mg/dL 70-110 H = 652) POTASSIUM-STAT [id number] 16:32:00 Test Item Value Reference Range Interpretation Comments POTASSIUM (BEAKER) (test code = 4.7 meq/L 3.6-5.5 379) [id number] 15:03:00 Test Item Value Reference Range Interpretation Comments PROCALCITONIN (BEAKER) (test code 5.33 ng/mL <0.05 H = 3036) SEPSIS RISK (ng/mL)Low: 0.05-0.50Intermediate: 0.51-2.00High: >=2.01CT BRAIN WITHOUT IV CONTRAST - [id number] 13:50:00Reason for exam:->altered mental statusFINAL REPORT CT [...] Granda Verified Date/Time: 01/17/2018 13:50:42 Reading Location: [facility] Radiology Reading Room CALCIUM, [id number] 12:36:00 Test Item Value Reference Range Interpretation Comments CALCIUM IONIZED (BEAKER) (test 1.09 mmol/L 1.12-1.27 L code = 698) PH, BLOOD (BEAKER) (test code = 7.36 1810) GLUCOSE-STAT [id number] 12:36:00 Test Item Value Reference Range Interpretation Comments GLUCOSE RANDOM (BEAKER) (test code 147 mg/dL 70-110 H = 652) POTASSIUM-STAT [id number] 12:36:00 Test Item Value Reference Range Interpretation Comments POTASSIUM (BEAKER) (test code = 4.7 meq/L 3.6-5.5 379) RAD, ABDOMEN/KUB, 1 VIEW [id number] 08:42:00Reason for exam:->ileusShould this be performed at [...] on the supine view. Signed: Lorna Slade Verified Date/Time: 01/17/2018 08:42:09 Reading Location: [facility] Radiology Reading Room CBC W/PLT COUNT & AUTO [id number] 08:18:00 Test Item Value Reference Range Interpretation [...] (test code = 413) HEPARIN ASSAY - [id number] 08:07:00 Test Item Value Reference Range Interpretation Comments UNFRACTIONATED HEPARIN-ANTI 10A < u/ml 0.30-0.70 L (BEAKER) (test code = 1606) Recommendations for Monitoring Unfractionated Heparin Therapeutic Range: 0.3- 0.7 u/mL with continuous IV infusionPOCT-GLUCOSE [id number] 06:09:00 Test Item Value Reference Range Interpretation Comments POC-GLUCOSE METER 143 mg/dL 70-[address] [facility] 6720 ([facility]) (test code = [facility] 1538) [address] RAD, CHEST, 1 VIEW, NON [id number] 04:43:00Reason for exam:->acute respiratory insufficiencyShould this be [...] MDReport Verified Date/Time: 01/17/2018 04:43:34 Reading Location: [facility] [id number] Body Reading Room OXYGEN SATURATION, [id number] 04:13:00 Test Item Value Reference Range Interpretation Comments O2 SATURATION (MEASURED) (BEAKER) 85.7 % (test code = 1455) [id number] 04:06:00 Test Item Value Reference Range Interpretation Comments PHOSPHORUS (BEAKER) (test code = 3.1 mg/dL 2.3-4.7 604) [id number] 04:06:00 Test Item Value Reference Range Interpretation Comments MAGNESIUM (BEAKER) (test code = 2.1 mg/dL 1.6-2.6 627) COMPREHENSIVE METABOLIC [id number] 04:06:00 Test Item Value Reference Range Interpretation [...] DIALYSIS PATIEN TS. Specimen moderately ictericHEPATIC FUNCTION [id number] 04:06:00 Test Item Value Reference Range Interpretation [...] 347) Specimen moderately ictericLACTIC ACID, ARTERIAL, WHOLE [id number] 03:59:00 Test Item Value Reference Range Interpretation Comments LACTATE BLOOD 0.5 mmol/L 0.5-2.2 Specimen sligh tly ARTERIAL (2) (BEAKER) hemoly zed (test code = 2874) Effective 01/04/2016: Units/Reference Range ChangeNew: 0.5-2.2 mmol/L Previous: 5-20 mg/dLSpecimen moderately ictericBLOOD GAS, [id number] 03:58:00 Test Item Value Reference Range Interpretation [...] (test code = 1819) 40.0 % CALCIUM, [id number] 03:58:00 Test Item Value Reference Range Interpretation Comments CALCIUM IONIZED (BEAKER) (test 1.14 mmol/L 1.12-1.27 code = 698) PH, BLOOD (BEAKER) (test code = 7.41 1810) POCT-GLUCOSE [id number] 02:41:00 Test Item Value Reference Range Interpretation Comments POC-GLUCOSE METER 144 mg/dL 70-110 H TESTED AT [place] [address] ([facility]) (test code = [facility] 1538) [address] POCT-GLUCOSE [id number] 00:30:00 Test Item Value Reference Range Interpretation Comments POC-GLUCOSE METER 171 mg/dL 70-110 H TESTED AT [place] [address] ([facility]) (test code = [facility] 1538) [address] POTASSIUM-STAT [id number] 00:08:00 Test Item Value Reference Range Interpretation Comments POTASSIUM (BEAKER) (test code = 4.5 meq/L 3.6-5.5 379) POCT-GLUCOSE [id number] 23:30:00 Test Item Value Reference Range Interpretation Comments POC-GLUCOSE METER 159 mg/dL 70-110 H TESTED AT [place] [address] ([facility]) (test code = [facility] 1538) [address] POCT-GLUCOSE [id number] 21:08:00 Test Item Value Reference Range Interpretation Comments POC-GLUCOSE METER 194 mg/dL 70-[address] [facility] 67 ([facility]) (test code = [place] 1538) [address] POCT-GLUCOSE [id number] 21:08:00 Test Item Value Reference Range Interpretation Comments POC-GLUCOSE METER 230 mg/dL 70-110 H TESTED AT [place] [address] ([facility]) (test code = [facility] 1538) [address] CALCIUM, [id number] 19:23:00 Test Item Value Reference Range Interpretation Comments CALCIUM IONIZED (BEAKER) (test 1.14 mmol/L 1.12-1.27 code = 698) PH, BLOOD (BEAKER) (test code = 7.36 1810) POTASSIUM-STAT [id number] 19:23:00 Test Item Value Reference Range Interpretation Comments POTASSIUM (BEAKER) (test code = 5.1 meq/L 3.6-5.5 379) [id number] 17:27:00 Test Item Value Reference Range Interpretation Comments PHOSPHORUS (BEAKER) (test code = 2.2 mg/dL 2.3-4.7 L 604) [id number] 17:27:00 Test Item Value Reference Range Interpretation Comments MAGNESIUM (BEAKER) (test code = 2.1 mg/dL 1.6-2.6 627) PH, [id number] 17:03:00 Test Item Value Reference Range Interpretation Comments PH ARTERIAL (BEAKER) (test code = 383) 7.39 7.35-7.45 POCT-GLUCOSE [id number] 16:43:00 Test Item Value Reference Range Interpretation Comments POC-GLUCOSE METER 95 mg/dL 70-110 TESTED AT [place] [address] ([facility]) (test code = [facility] [place] [address] 1538) POCT-GLUCOSE [id number] 14:41:00 Test Item Value Reference Range Interpretation Comments POC-GLUCOSE METER 134 mg/dL 70-110 H TESTED AT [place] [address] ([facility]) (test code = [facility] [place] 1538) [address] RAD, ABDOMEN/KUB, 1 VIEW [id number] 13:16:00Reason for exam:- >constipationShould this be performed [...] Verified Date/Time: 01/16/2018 13:16:27 Reading Location: [facility] Reading Room Electronically signed by: KAY WALTER on01/16/2018 01:16 PMCALCIUM, [id number] 12:38:00 Test Item Value Reference Range Interpretation Comments CALCIUM IONIZED ([facility]) (test 1.14 mmol/L 1.12-1.27 code = 698) PH, BLOOD ([facility]) (test code = 7.40 1810) POCT-GLUCOSE [id number] 12:29:00 Test Item Value Reference Range Interpretation Comments POC-GLUCOSE METER 127 mg/dL 70-110 H TESTED AT [place] [address] ([facility]) (test code = [facility] 1538) [address] POCT-GLUCOSE [id number] 10:34:00 Test Item Value Reference Range Interpretation Comments POC-GLUCOSE METER 130 mg/dL 70-110 H TESTED AT [place] [address] ([facility]) (test code = [facility] 1538) [address] POCT-GLUCOSE [id number] 09:10:00 Test Item Value Reference Range Interpretation Comments POC-GLUCOSE METER 151 mg/dL 70-110 H TESTED AT [place] [address] ([facility]) (test code = [facility] 1538) [address] HEPARIN ASSAY - [id number] 09:00:00 Test Item Value Reference Range Interpretation Comments UNFRACTIONATED HEPARIN-ANTI 10A < u/ml 0.30-0.70 L ([facility]) (test code = 1606) Recommendations [...] H (test code = 413) OXYGEN SATURATION, [id number] 08:30:00 Test Item Value Reference Range Interpretation Comments O2 SATURATION (MEASURED) (BEAKER) 87.1 % (test code = 1455) RAD, CHEST, 1 VIEW, NON [id number] 08:11:00Reason for exam:->acute respiratory insufficiencyShould this be performed at the bedside?->YesFINAL REPORT CLINICAL HISTORY: acute respiratory insufficiency TECHNIQUE: 1 view of the chest. COMPARISON: 01/15/2018 IMPRESSION: The Dyke-Moni catheter has been removed. The supporting lines and tubes are otherwise unchanged. There is no pneumothorax. Mild bilateral perihilar lung opacities have decreased. The cardiomediastinal silhouette is magnified by technique with sternotomy wires. Signed: Lorna Slade Verified Date/Time: 01/16/2018 08:11:02 Reading Location: [facility] Radiology Reading Room POCT- GLUCOSE [id number] 06:43:00 Test Item Value Reference Range Interpretation Comments POC-GLUCOSE METER 107 mg/dL 70-110 TESTED AT [place] [address] ([facility] (test code = [facility] 1538) [address] U/S, ABDOMINAL, [id number] 05:25:00Abdomen limited area? Add comment if clarification [...] MDReport Verified Date/Time: 01/16/2018 05:25:06 Reading Location: [facility] B1 C013Y CT Body Reading Room IC ACID, ARTERIAL, WHOLE [id number] 04:06:00 Test Item Value Reference Range Interpretation Comments LACTATE BLOOD ARTERIAL (2) 0.6 mmol/L 0.5-2.2 (BEAKER) (test code = 2874) Effective 01/04/2016: Units/Reference Range ChangeNew: 0.5-2.2 mmol/L Previous: 5-20 mg/dLSpecimen moderately [id number] 04:00:00 Test Item Value Reference Range Interpretation Comments PHOSPHORUS (BEAKER) (test code = 2.2 mg/dL 2.3-4.7 L 604) [id number] 04:00:00 Test Item Value Reference Range Interpretation Comments MAGNESIUM (BEAKER) (test code = 2.0 mg/dL 1.6-2.6 627) [id number] 04:00:00 Test Item Value Reference Range Interpretation Comments CALCIUM (BEAKER) (test code = 697) 8.5 mg/dL 8.4-10.2 COMPREHENSIVE METABOLIC [id number] 04:00:00 Test Item Value Reference Range Interpretation [...] DIALYSIS PATIEN TS. Specimen moderately ictericHEPATIC FUNCTION [id number] 04:00:00 Test Item Value Reference Range Interpretation [...] 6-55 H 347) Specimen moderately ictericBLOOD GAS, [id number] 03:51:00 Test Item Value Reference Range Interpretation [...] (test code = 1819) 60.0 % PROTHROMBIN [id number] 03:51:00 Test Item Value Reference Range Interpretation Comments PROTIME (BEAKER) (test code = 15.2 seconds 11.7-14.7 H 759) INR ([facility]) (test code = 370) 1.2 <=5.9 RECOMMENDED COUMADIN/WARFARIN INR THERAPY RANGESSTANDARD DOSE: 2.0 - 3.0 Includes: PROPHYLAXIS forvenous thrombosis, systemic embolization; TREATMENT for venous thrombosis and/or pulmonary embolus.HIGH RISK: Target INR is 2.5-3.5 for patients with mechanical heart valves.CALCIUM, [id number] 03:51:00 Test Item Value Reference Range Interpretation Comments CALCIUM IONIZED ([facility]) (test 1.17 mmol/L 1.12-1.27 code = 698) PH, BLOOD ([facility]) (test code = 7.42 1810) POCT-GLUCOSE [id number] 02:08:00 Test Item Value Reference Range Interpretation Comments POC-GLUCOSE METER 110 mg/dL 70-110 TESTED AT [place] [address] ([facility]) (test code = [place] [place] [facility] 1538) [address] POCT-GLUCOSE [id number] 01:14:00 Test Item Value Reference Range Interpretation Comments POC-GLUCOSE METER 107 mg/dL 70-110 TESTED AT [place] [address] ([facility]) (test code = [place] [facility] 1538) [address] POCT-GLUCOSE [id number] 00:29:00 Test Item Value Reference Range Interpretation Comments POC-GLUCOSE METER 129 mg/dL 70-110 H TESTED AT [place] [address] ([facility]) (test code = [place] [facility] 1538) [address] POCT-GLUCOSE [id number] 23:07:00 Test Item Value Reference Range Interpretation Comments POC-GLUCOSE METER 152 mg/dL 70-110 H TESTED AT [place] [address] ([facility]) (test code = [place] [facility] 1538) [address] POCT-GLUCOSE [id number] 22:09:00 Test Item Value Reference Range Interpretation Comments POC-GLUCOSE METER 171 mg/dL 70-110 H TESTED AT [place] [address] ([facility]) (test code = [place] [facility] 1538) [address] POCT-GLUCOSE [id number] 21:13:00 Test Item Value Reference Range Interpretation Comments POC-GLUCOSE METER 171 mg/dL 70-110 H TESTED AT [place] [address] ([facility]) (test code = [facility] 1538) [address] CALCIUM, [id number] 20:50:00 Test Item Value Reference Range Interpretation Comments CALCIUM IONIZED (JARROD) (test 1.15 mmol/L 1.12-1.27 code = 698) PH, BLOOD ([facility]) (test code = 7.34 1810) POCT-GLUCOSE [id number] 20:21:00 Test Item Value Reference Range Interpretation Comments POC-GLUCOSE METER 206 mg/dL 70-110 H TESTED AT [place] [address] ([facility]) (test code = [facility] 1538) [address] POCT-GLUCOSE [id number] 19:16:00 Test Item Value Reference Range Interpretation Comments POC-GLUCOSE METER 197 mg/dL 70-110 H TESTED AT [place] [address] ([facility]) (test code = [facility] 1538) [address] [id number] 17:15:00 Test Item Value Reference Range Interpretation Comments PHOSPHORUS ([facility] (test code = 4.1 mg/dL 2.3-4.7 604) [id number] 17:15:00 Test Item Value Reference Range Interpretation Comments MAGNESIUM ([facility] (test code = 1.9 mg/dL 1.6-2.6 627) EEG AWAKE AND [id number] 14:56:00For STAT EEG- after 5 PM weekdays, weekends and holidays, page the on-call EEG TechReason for exam:->AMSShould this be performed at the bedside?->YesDate(s) of EE01/15/2018DATE OF REPORT: 01/15/2018ACC: [id number] Number: [id number] Location: Inpatient ICUStart time: 13:18Stop time: 13:40ICD-10: R41.82CPT Code: 48682 HISTORY: 62 y/o man with hxof AFib, [...] Kwon MD, MSClinic al Neurophysiology/Epilepsy Attending HEPARIN [id number] 13:21:00 Test Item Value Reference Range Interpretation Comments HEPARIN ANTIBODY ([employer]) (test code Negative Negative = 646) HEPARIN ANTIBODY OD ([employer]) (test 0.076 <0.400 code = 2659) 4T TOTAL SCORE ([employer]) (test code = 5 4809) Probability of HIT based on scoring system: 6-8 = High probability; 4-5 = intermediate probability;0-3 = low probabilityPOCT-GLUCOSE [id number] 12:26:00 Test Item Value Reference Range Interpretation Comments POC-GLUCOSE METER 128 mg/dL 70-[address] [facility] 6720 ([employer]) (test code = [place] 1538) [address] FIBRIN SOLUBLE [id number] 11:02:00 Test Item Value Reference Range Interpretation Comments FIBRIN SOLUBLE MONOMER (BEAKER) Negative (test code = 1416) HEPARIN ASSAY - [id number] 10:20:00 Test Item Value Reference Range Interpretation Comments UNFRACTIONATED HEPARIN-ANTI 10A < u/ml 0.30-0.70 L (JoinityAKER) (test code = 1606) Recommendations for Monitoring Unfractionated Heparin Therapeutic Range: 0.3- 0.7 u/mL with continuous IV [id number] 10:14:00 Test Item Value Reference Range Interpretation [...] of thrombosis is within 95-100% range. GLUCOSE-STAT [id number] 10:03:00 Test Item Value Reference Range Interpretation Comments GLUCOSE RANDOM (BEAKER) (test code 151 mg/dL 70-110 H = 652) CALCIUM, [id number] 10:02:00 Test Item Value Reference Range Interpretation Comments CALCIUM IONIZED (BEAKER) (test 1.13 mmol/L 1.12-1.27 code = 698) PH, BLOOD (BEAKER) (test code = 7.36 1810) POTASSIUM-STAT [id number] 10:01:00 Test Item Value Reference Range Interpretation Comments POTASSIUM (BEAKER) (test code = 4.3 meq/L 3.6-5.5 379) CBC W/PLT COUNT & AUTO [id number] 07:43:00 Test Item Value Reference Range Interpretation [...] = 2801) RAD, CHEST, 1 VIEW, NON [id number] 04:00:00Reason for exam:->acute respiratory insufficiencyShould this be performed at the bedside?->Yes Addendum BeginsREPORT STATUS:A Correction: Comparison is made to previous dated 01/14/2018. Signed: Kellen Parra MDReport Verified Date/Time: 01/15/2018 04:00:43 Reading Location: [address] Reading RoomAddendum EndsFINAL REPORT CLINICAL ADEEL CATION: Respiratory insufficiency Comparison: 01/15/2018 The cardiomediastinal contours are stable. Central pulmonary vascular congestion and bilateral parenchymal opacities are unchanged. There is no pneumothorax. Support lines are stable. Signed: Kellen Parra MDReport Verified Date/Time: 01/15/201803:46:27 Reading Location: [address] Reading Room [id number] 03:36:00 Test Item Value Reference Range Interpretation Comments PHOSPHORUS (BEAKER) (test code = 2.7 mg/dL 2.3-4.7 604) [id number] 03:36:00 Test Item Value Reference Range Interpretation Comments MAGNESIUM (BEAKER) (test code = 2.0 mg/dL 1.6-2.6 627) COMPREHENSIVE METABOLIC [id number] 03:36:00 Test Item Value Reference Range Interpretation [...] DIALYSIS PATIEN TS. Specimen slightly ictericHEPATIC FUNCTION [id number] 03:36:00 Test Item Value Reference Range Interpretation [...] U/L 6-55 H 347) Specimen slightly ictericPROTHROMBIN [id number] 03:35:00 Test Item Value Reference Range Interpretation [...] mmol/L Previous: 5-20 mg/dLSpecimen slightly ictericBLOOD GAS, [id number] 03:29:00 Test Item Value Reference Range Interpretation [...] code = 1819) 40.0 % OXYGEN SATURATION, [id number] 03:26:00 Test Item Value Reference Range Interpretation Comments O2 SATURATION (MEASURED) (BEAKER) 72.5 % (test code = 1455) CALCIUM, [id number] 00:17:00 Test Item Value Reference Range Interpretation Comments CALCIUM IONIZED (BEAKER) (test 1.19 mmol/L 1.12-1.27 code = 698) PH, BLOOD (BEAKER) (test code = 7.36 1810) POCT-GLUCOSE [id number] 00:15:00 Test Item Value Reference Range Interpretation Comments POC-GLUCOSE METER 144 mg/dL 70-110 H TESTED AT [place] [address] ([facility]) (test code = [facility] 1538) [address] POCT-GLUCOSE [id number] 22:43:00 Test Item Value Reference Range Interpretation Comments POC-GLUCOSE METER 98 mg/dL 70-110 TESTED AT [place] [address] ([facility]) (test code = [facility] [address] 1538) POCT-GLUCOSE [id number] 22:43:00 Test Item Value Reference Range Interpretation Comments POC-GLUCOSE METER 80 mg/dL 70-110 TESTED AT [place] [address] ([facility]) (test code = [facility] [address] 1538) VANCOMYCIN LEVEL, [id number] 20:20:00 Test Item Value Reference Range Interpretation Comments VANCOMYCIN TROUGH (BEAKER) (test 20.1 ug/mL 10.0-20.0 H code = 522) Before vanc [id number] 16:52:00 Test Item Value Reference Range Interpretation Comments PHOSPHORUS (BEAKER) (test code = 1.7 mg/dL 2.3-4.7 L 604) [id number] 16:52:00 Test Item Value Reference Range Interpretation Comments MAGNESIUM (BEAKER) (test code = 2.3 mg/dL 1.6-2.6 627) [id number] 16:39:00 Test Item Value Reference Range Interpretation Comments AMMONIA (BEAKER) (test code = 348) 32 mol/L 18-72 PH, [id number] 16:01:00 Test Item Value Reference Range Interpretation Comments PH ARTERIAL (BEAKER) (test code = 383) 7.42 7.35-7.45 GLUCOSE-STAT [id number] 16:01:00 Test Item Value Reference Range Interpretation Comments GLUCOSE RANDOM (BEAKER) (test code = 95 mg/dL 70-110 652) POTASSIUM-STAT [id number] 16:01:00 Test Item Value Reference Range Interpretation Comments POTASSIUM (BEAKER) (test code = 4.3 meq/L 3.6-5.5 379) CALCIUM, [id number] 16:01:00 Test Item Value Reference Range Interpretation Comments CALCIUM IONIZED (BEAKER) (test 1.28 mmol/L 1.12-1.27 H code = 698) PH, BLOOD (BEAKER) (test code = 7.42 1810) CALCIUM, [id number] 12:19:00 Test Item Value Reference Range Interpretation Comments CALCIUM IONIZED (BEAKER) (test 1.36 mmol/L 1.12-1.27 H code = 698) PH, BLOOD (BEAKER) (test code = 7.41 1810) GLUCOSE-STAT [id number] 12:17:00 Test Item Value Reference Range Interpretation Comments GLUCOSE RANDOM (BEAKER) (test code = 94 mg/dL 70-110 652) POTASSIUM-STAT [id number] 12:17:00 Test Item Value Reference Range Interpretation Comments POTASSIUM (BEAKER) (test code = 4.3 meq/L 3.6-5.5 379) [id number] 11:34:00 Test Item Value Reference Range Interpretation Comments MAGNESIUM (BEAKER) (test code = 2.1 mg/dL 1.6-2.6 627) BASIC METABOLIC [id number] 11:34:00 Test Item Value Reference Range Interpretation [...] DIALYSIS PATIEN TS. Specimen slightly ictericHEPATIC FUNCTION [id number] 11:34:00 Test Item Value Reference Range Interpretation [...] 6-55 H 347) Specimen slightly ictericBLOOD GAS, [id number] 09:44:00 Test Item Value Reference Range Interpretation [...] (test code = 1819) 100.0 % GLUCOSE-STAT [id number] 09:42:00 Test Item Value Reference Range Interpretation Comments GLUCOSE RANDOM (BEAKER) (test code = 95 mg/dL 70-110 652) POTASSIUM-STAT [id number] 09:42:00 Test Item Value Reference Range Interpretation Comments POTASSIUM (BEAKER) (test code = 4.5 meq/L 3.6-5.5 379) CALCIUM, [id number] 09:38:00 Test Item Value Reference Range Interpretation Comments CALCIUM IONIZED (BEAKER) (test 1.26 mmol/L 1.12-1.27 code = 698) PH, BLOOD (BEAKER) (test code = 7.41 1810) HEPARIN ASSAY - [id number] 08:44:00 Test Item Value Reference Range Interpretation Comments UNFRACTIONATED HEPARIN-ANTI 10A < u/ml 0.30-0.70 L (BEAKER) (test code = 1606) Recommendations for Monitoring Unfractionated Heparin Therapeutic Range: 0.3- 0.7 u/mL with continuous IV infusionGLUCOSE-STAT [id number] 06:41:00 Test Item Value Reference Range Interpretation [...] (test 0.0 % 0.0-5.0 code = 1414) [id number] 05:05:00 Test Item Value Reference Range Interpretation Comments PHOSPHORUS (BEAKER) (test code = 2.5 mg/dL 2.3-4.7 604) [id number] 05:05:00 Test Item Value Reference Range Interpretation Comments MAGNESIUM (BEAKER) (test code = 2.1 mg/dL 1.6-2.6 627) HEPATIC FUNCTION [id number] 05:05:00 Test Item Value Reference Range Interpretation [...] 1266 U/L 6-55 H 347) Specimen slightly [id number] 05:05:00 Test Item Value Reference Range Interpretation Comments CALCIUM (BEAKER) (test code = 697) 9.0 mg/dL 8.4-10.2 LACTATE DEHYDROGENASE (LDH)2018-01-14 05:05:00 Test Item Value Reference Range Interpretation Comments LACTATE DEHYDROGENASE (BEAKER) (test 667 U/L 125-220 H code = 635) PROTHROMBIN [id number] 05:05:00 Test Item Value Reference Range Interpretation Comments PROTIME (BEAKER) (test code = 15.2 seconds 11.7-14.7 H 759) INR (BEAKER) (test code = 370) 1.2 <=5.9 RECOMMENDED COUMADIN/WARFARIN INR THERAPY RANGESSTANDARD DOSE: 2.0 - 3.0 Includes: PROPHYLAXIS forvenous thrombosis, systemic embolization; TREATMENT for venous thrombosis and/or pulmonary embolus.HIGH RISK: Target INR is 2.5-3.5 for patients with mechanical heart valves.[id number] 05:05:00 Test Item Value Reference Range Interpretation Comments FIBRINOGEN LEVEL (BEAKER) (test 280 mg/dl 225-434 code = 658) RAD, CHEST, 1 VIEW, NON [id number] 04:57:00Reason for exam:- >impella/ECMO/intubationShould this be performed at the bedside?->YesFINAL REPORT CLINICAL INDICATION: Support lines. Comparison: 01/13/2018 The cardiomediastinal contours are stable. Cardiac opacities may reflect atelectasis but pneumonitis should be excluded clinically. There is no pneumothorax. Support lines are stable. Signed: Kellen Parra MDReport Verified Date/Time: 01/14/2018 04:57:02 Reading Location: [address] Reading Room LACTIC ACID, ARTERIAL, WHOLE [id number] 04:55:00 Test Item Value Reference Range Interpretation [...] H (BEAKER) (test code = 413) CALCIUM, [id number] 04:39:00 Test Item Value Reference Range Interpretation Comments CALCIUM IONIZED (BEAKER) (test 1.20 mmol/L 1.12-1.27 code = 698) PH, BLOOD (BEAKER) (test code = 7.37 1810) OXYGEN SATURATION, [id number] 04:38:00 Test Item Value Reference Range Interpretation Comments O2 SATURATION (MEASURED) (BEAKER) 75.3 % (test code = 1455) BLOOD GAS, [id number] 04:37:00 Test Item Value Reference Range Interpretation [...] (test code = 1819) 40.0 % GLUCOSE-STAT [id number] 04:37:00 Test Item Value Reference Range Interpretation Comments GLUCOSE RANDOM (BEAKER) (test code 154 mg/dL 70-110 H = 652) GLUCOSE-STAT [id number] 02:52:00 Test Item Value Reference Range Interpretation Comments GLUCOSE RANDOM (BEAKER) (test code 179 mg/dL 70-110 H = 652) GLUCOSE-STAT [id number] 01:26:00 Test Item Value Reference Range Interpretation Comments GLUCOSE RANDOM (BEAKER) (test code 195 mg/dL 70-110 H = 652) [id number] 00:08:00 Test Item Value Reference Range Interpretation Comments POTASSIUM (BEAKER) (test code = 4.2 meq/L 3.5-5.1 379) [id number] 00:08:00 Test Item Value Reference Range Interpretation Comments GLUCOSE RANDOM (BEAKER) (test code 237 mg/dL 70-105 H = 652) CBC W/PLT COUNT & AUTO [id number] 22:28:00 Test Item Value Reference Range Interpretation [...] = 413) RAD, CHEST, 1 VIEW, NON [id number] 21:50:00Reason for exam:->chest tubes/intubationShould this be performed [...] MDReport Verified Date/Time: 01/13/2018 21:50:50 Reading Location: [address] Consult Reading Room THROMBOELASTOGRAPH (TEG)2018-01-13 21:45:00 [...] % 0.0-5.0 code = 1414) BASIC METABOLIC [id number] 21:35:00 Test Item Value Reference Range Interpretation [...] APPLICABLE FOR DIALYSIS PATIEN TS. Specimen slightly [id number] 21:06:00 Test Item Value Reference Range Interpretation Comments PHOSPHORUS (BEAKER) (test code = 3.7 mg/dL 2.3-4.7 604) [id number] 21:06:00 Test Item Value Reference Range Interpretation Comments MAGNESIUM (BEAKER) (test code = 2.0 mg/dL 1.6-2.6 627) LACTIC ACID, ARTERIAL, WHOLE [id number] 21:06:00 Test Item Value Reference Range Interpretation Comments LACTATE BLOOD ARTERIAL (2) 1.8 mmol/L 0.5-2.2 (BEAKER) (test code = 2874) Effective 01/04/2016: Units/Reference Range ChangeNew: 0.5-2.2 mmol/L Previous: 5-20 mg/dLSpecimen slightly [id number] 21:01:00 Test Item Value Reference Range Interpretation Comments PARTIAL THROMBOPLASTIN TIME 35.1 seconds 22.5-36.0 (BEAKER) (test code = 760) [id number] 21:00:00 Test Item Value Reference Range Interpretation Comments FIBRINOGEN LEVEL (BEAKER) (test 253 mg/dl 225-434 code = 658) PROTHROMBIN [id number] 20:59:00 Test Item Value Reference Range Interpretation Comments PROTIME (BEAKER) (test code = 16.4 seconds 11.7-14.7 H 759) INR (BEAKER) (test code = 370) 1.3 <=5.9 RECOMMENDED COUMADIN/WARFARIN INR THERAPY RANGESSTANDARD DOSE: 2.0 - 3.0 Includes: PROPHYLAXIS forvenous thrombosis, systemic embolization; TREATMENT for venous thrombosis and/or pulmonary embolus.HIGH RISK: Target INR is 2.5-3.5 for patients with mechanical heart valves.BLOOD GAS, [id number] 20:47:00 Test Item Value Reference Range Interpretation [...] (test code = 1819) 40.0 % GLUCOSE-STAT [id number] 20:47:00 Test Item Value Reference Range Interpretation Comments GLUCOSE RANDOM (BEAKER) (test code 235 mg/dL 70-110 H = 652) CALCIUM, [id number] 20:47:00 Test Item Value Reference Range Interpretation Comments CALCIUM IONIZED (BEAKER) (test 0.97 mmol/L 1.12-1.27 L code = 698) PH, BLOOD (BEAKER) (test code = 7.39 1810) HGB/HCT (H&H) - STAT [id number] 20:46:00 Test Item Value Reference Range Interpretation Comments HEMOGLOBIN (BEAKER) (test code = 7.7 g/dL 13.0-16.8 L 410) HEMATOCRIT (BEAKER) (test code = 23.0 % 40.0-50.0 L 411) POTASSIUM-STAT [id number] 20:46:00 Test Item Value Reference Range Interpretation Comments POTASSIUM (BEAKER) (test code = 3.4 meq/L 3.6-5.5 L 379) SODIUM NA-STAT [id number] 20:46:00 Test Item Value Reference Range Interpretation Comments SODIUM (BEAKER) (test code = 381) 133 meq/L 135-148 L OXYGEN SATURATION, [id number] 20:42:00 Test Item Value Reference Range Interpretation Comments O2 SATURATION (MEASURED) (BEAKER) 74.1 % (test code = 1455) BLOOD GAS, [id number] 18:58:00 Test Item Value Reference Range Interpretation [...] code = 1819) 100.0 % SODIUM NA-STAT [id number] 18:58:00 Test Item Value Reference Range Interpretation Comments SODIUM (BEAKER) (test code = 381) 131 meq/L 135-148 L POTASSIUM-STAT [id number] 18:58:00 Test Item Value Reference Range Interpretation Comments POTASSIUM (BEAKER) (test code = 3.4 meq/L 3.6-5.5 L 379) GLUCOSE-STAT [id number] 18:58:00 Test Item Value Reference Range Interpretation Comments GLUCOSE RANDOM (BEAKER) (test code 214 mg/dL 70-110 H = 652) HGB/HCT (H&H) - STAT [id number] 18:58:00 Test Item Value Reference Range Interpretation [...] % 0.0-5.0 code = 1414) BLOOD GAS, [id number] 18:11:00 Test Item Value Reference Range Interpretation [...] TEMPERATURE (BEAKER) (test 37.0 C code = 0572) FIO2 (BEAKER) (test code = 1819) 97.0 % SODIUM NA-STAT [id number] 18:11:00 Test Item Value Reference Range Interpretation Comments SODIUM (BEAKER) (test code = 381) 132 meq/L 135-148 L GLUCOSE-STAT [id number] 18:11:00 Test Item Value Reference Range Interpretation Comments GLUCOSE RANDOM (BEAKER) (test code 200 mg/dL 70-110 H = 652) HGB/HCT (H&H) - STAT [id number] 18:11:00 Test Item Value Reference Range Interpretation Comments HEMOGLOBIN (BEAKER) (test code = 8.2 g/dL 13.0-16.8 L 410) HEMATOCRIT (BEAKER) (test code = 24.0 % 40.0-50.0 L 411) POTASSIUM-STAT [id number] 18:07:00 Test Item Value Reference Range Interpretation Comments POTASSIUM (BEAKER) (test code = 3.5 meq/L 3.6-5.5 L 379) [id number] 16:37:00 Test Item Value Reference Range Interpretation Comments PHOSPHORUS (BEAKER) (test code = 2.5 mg/dL 2.3-4.7 604) [id number] 16:37:00 Test Item Value Reference Range Interpretation Comments MAGNESIUM (BEAKER) (test code = 2.1 mg/dL 1.6-2.6 627) [id number] 16:29:00 Test Item Value Reference Range Interpretation [...] for patients with mechanical heart valves.BLOOD GAS, [id number] 16:16:00 Test Item Value Reference Range Interpretation [...] (test code = 1819) 40.0 % CALCIUM, [id number] 16:14:00 Test Item Value Reference Range Interpretation Comments CALCIUM IONIZED (BEAKER) (test 1.09 mmol/L 1.12-1.27 L code = 698) PH, BLOOD (BEAKER) (test code = 7.64 1810) GLUCOSE-STAT [id number] 16:12:00 Test Item Value Reference Range Interpretation Comments GLUCOSE RANDOM (BEAKER) (test code 182 mg/dL 70-110 H = 652) CALCIUM, [id number] 12:53:00 Test Item Value Reference Range Interpretation Comments CALCIUM IONIZED (BEAKER) (test 1.12 mmol/L 1.12-1.27 code = 698) PH, BLOOD (BEAKER) (test code = 7.51 1810) BLOOD GAS, [id number] 12:53:00 Test Item Value Reference Range Interpretation [...] 1819) 40.0 % HGB/HCT (H&H) - STAT [id number] 12:53:00 Test Item Value Reference Range Interpretation Comments HEMOGLOBIN (BEAKER) (test code = 8.3 g/dL 13.0-16.8 L 410) HEMATOCRIT (BEAKER) (test code = 24.0 % 40.0-50.0 L 411) GLUCOSE-STAT [id number] 12:53:00 Test Item Value Reference Range Interpretation Comments GLUCOSE RANDOM (BEAKER) (test code 185 mg/dL 70-110 H = 652) POTASSIUM-STAT [id number] 12:52:00 Test Item Value Reference Range Interpretation Comments POTASSIUM (BEAKER) (test code = 3.7 meq/L 3.6-5.5 379) CBC W/PLT COUNT & AUTO [id number] 11:04:00 Test Item Value Reference Range Interpretation [...] 0-0 H (test code = 413) POTASSIUM-STAT [id number] 10:49:00 Test Item Value Reference Range Interpretation Comments POTASSIUM (BEAKER) (test code = 3.8 meq/L 3.6-5.5 379) HEPARIN ASSAY - [id number] 09:55:00 Test Item Value Reference Range Interpretation Comments UNFRACTIONATED HEPARIN-ANTI 10A 0.14 u/ml 0.30-0.70 L (BEAKER) (test code = 1606) Recommendations for Monitoring Unfractionated Heparin Therapeutic Range: 0.3- 0.7 u/mL with continuous IV [id number] 09:54:00 Test Item Value Reference Range Interpretation Comments PARTIAL THROMBOPLASTIN TIME 57.6 seconds 22.5-36.0 H (BEAKER) (test code = 760) BLOOD GAS, [id number] 09:33:00 Test Item Value Reference Range Interpretation [...] (test code = 1819) 40.0 % GLUCOSE-STAT [id number] 09:33:00 Test Item Value Reference Range Interpretation Comments GLUCOSE RANDOM (BEAKER) (test code 192 mg/dL 70-110 H = 652) GLUCOSE-STAT [id number] 09:33:00 Test Item Value Reference Range Interpretation Comments GLUCOSE RANDOM (BEAKER) (test code 192 mg/dL 70-110 H = 652) CALCIUM, [id number] 09:32:00 Test Item Value Reference Range Interpretation Comments CALCIUM IONIZED (BEAKER) (test 1.15 mmol/L 1.12-1.27 code = 698) PH, BLOOD (BEAKER) (test code = 7.51 1810) BLOOD GAS, [id number] 07:23:00 Test Item Value Reference Range Interpretation [...] % 0.0-5.0 code = 1414) BLOOD GAS, [id number] 06:13:00 Test Item Value Reference Range Interpretation [...] code = 1819) 40.0 % BLOOD GAS, [id number] 05:13:00 Test Item Value Reference Range Interpretation [...] (BEAKER) (test code = 1819) 100.0 % [id number] 04:41:00 Test Item Value Reference Range Interpretation Comments PARTIAL THROMBOPLASTIN TIME 61.3 seconds 22.5-36.0 H (BEAKER) (test code = 760) RAD, CHEST, 1 VIEW, NON [id number] 04:38:00Reason for exam:- >impella/ECMO/intubationShould this be performed at the bedside?->YesFINAL REPORT CLINICAL INDICATION: Support lines. Comparison: 01/12/2018 The cardiomediastinal contours are stable. Central pulmonary vascular prominence and bilateral parenchymalopacities are previous. There is no pneumothorax. Support lines are stable. Signed: Kellen Parra MDReport Verified Date/Time: 01/13/2018 04:38:41 Reading Location: [address] Reading Room HEPATIC FUNCTION [id number] 04:25:00 Test Item Value Reference Range Interpretation [...] 2232 U/L 6-55 H 347) Specimen slightly [id number] 04:19:00 Test Item Value Reference Range Interpretation Comments PHOSPHORUS (BEAKER) (test code = 4.1 mg/dL 2.3-4.7 604) [id number] 04:19:00 Test Item Value Reference Range Interpretation Comments MAGNESIUM (BEAKER) (test code = 1.9 mg/dL 1.6-2.6 627) [id number] 04:19:00 Test Item Value Reference Range Interpretation Comments CALCIUM (BEAKER) (test code = 697) 8.6 mg/dL 8.4-10.2 BASIC METABOLIC [id number] 04:19:00 Test Item Value Reference Range Interpretation [...] 1658 U/L 125-220 H code = 635) [id number] 04:16:00 Test Item Value Reference Range Interpretation Comments FIBRINOGEN LEVEL (BEAKER) (test 299 mg/dl 225-434 code = 658) LACTIC ACID, ARTERIAL, WHOLE [id number] 04:16:00 Test Item Value Reference Range Interpretation Comments LACTATE BLOOD ARTERIAL (2) 0.8 mmol/L 0.5-2.2 (BEAKER) (test code = 2874) Effective 01/04/2016: Units/Reference Range ChangeNew: 0.5-2.2 mmol/L Previous: 5-20 mg/dLSpecimen slightly ictericPROTHROMBIN [id number] 04:15:00 Test Item Value Reference Range Interpretation Comments PROTIME (BEAKER) (test code = 15.8 seconds 11.7-14.7 H 759) INR (BEAKER) (test code = 370) 1.3 <=5.9 RECOMMENDED COUMADIN/WARFARIN INR THERAPY RANGESSTANDARD DOSE: 2.0 - 3.0 Includes: PROPHYLAXIS forvenous thrombosis, systemic embolization; TREATMENT for venous thrombosis and/or pulmonary embolus.HIGH RISK: Target INR is 2.5-3.5 for patients with mechanical heart valves.CALCIUM, [id number] 04:04:00 Test Item Value Reference Range Interpretation Comments CALCIUM IONIZED (BEAKER) (test 1.15 mmol/L 1.12-1.27 code = 698) PH, BLOOD (BEAKER) (test code = 7.33 6170) BLOOD GAS, [id number] 04:03:00 Test Item Value Reference Range Interpretation [...] (test code = 1819) 40.0 % PLATELET [id number] 03:58:00 Test Item Value Reference Range Interpretation Comments PLATELET COUNT (BEAKER) (test code 89 K/CU MM 150-450 L = 756) OXYGEN SATURATION, [id number] 03:57:00 Test Item Value Reference Range Interpretation Comments O2 SATURATION (MEASURED) (BEAKER) 79.4 % (test code = 1455) BLOOD GAS, [id number] 01:19:00 Test Item Value Reference Range Interpretation [...] (test code = 1819) 40.0 % GLUCOSE-STAT [id number] 01:19:00 Test Item Value Reference Range Interpretation Comments GLUCOSE RANDOM (BEAKER) (test code 177 mg/dL 70-110 H = 652) POTASSIUM-STAT [id number] 01:18:00 Test Item Value Reference Range Interpretation Comments POTASSIUM (BEAKER) (test code = 4.0 meq/L 3.6-5.5 379) CALCIUM, [id number] 01:17:00 Test Item Value Reference Range Interpretation [...] (test 0.0 % 0.0-5.0 code = 1414) [id number] 20:36:00 Test Item Value Reference Range Interpretation Comments POTASSIUM (BEAKER) (test code = 4.2 meq/L 3.5-5.1 379) [id number] 20:36:00 Test Item Value Reference Range Interpretation Comments MAGNESIUM (BEAKER) (test code = 1.8 mg/dL 1.6-2.6 627) [id number] 20:36:00 Test Item Value Reference Range Interpretation Comments PHOSPHORUS (BEAKER) (test code = 3.5 mg/dL 2.3-4.7 604) LACTIC ACID, ARTERIAL, WHOLE [id number] 20:33:00 Test Item Value Reference Range Interpretation Comments LACTATE BLOOD ARTERIAL (2) 0.8 mmol/L 0.5-2.2 (BEAKER) (test code = 2874) Effective 01/04/2016: Units/Reference Range ChangeNew: 0.5-2.2 mmol/L Previous: 5-20 mg/dLSpecimen slightly ictericBLOOD GAS, [id number] 20:20:00 Test Item Value Reference Range Interpretation [...] (test code = 1819) 40.0 % GLUCOSE-STAT [id number] 20:20:00 Test Item Value Reference Range Interpretation Comments GLUCOSE RANDOM (BEAKER) (test code 180 mg/dL 70-110 H = 652) [id number] 18:34:00 Test Item Value Reference Range Interpretation Comments GLUCOSE RANDOM (BEAKER) (test code 218 mg/dL 70-105 H = 652) BLOOD GAS, [id number] 18:18:00 Test Item Value Reference Range Interpretation [...] (BEAKER) (test code = 1819) 40.0 % [id number] 17:12:00 Test Item Value Reference Range Interpretation Comments PARTIAL THROMBOPLASTIN TIME 54.1 seconds 22.5-36.0 H (BEAKER) (test code = 760) [id number] 17:12:00 Test Item Value Reference Range Interpretation Comments FIBRINOGEN LEVEL (BEAKER) (test 285 mg/dl 225-434 code = 658) PROTHROMBIN [id number] 17:10:00 Test Item Value Reference Range Interpretation [...] ChangeNew: 0.5-2.2 mmol/L Previous: 5-20 mg/dLSpecimen slightly [id number] 17:01:00 Test Item Value Reference Range Interpretation Comments POTASSIUM (BEAKER) (test code = 4.5 meq/L 3.5-5.1 379) [id number] 17:01:00 Test Item Value Reference Range Interpretation Comments GLUCOSE RANDOM (BEAKER) (test code 239 mg/dL 70-105 H = 652) PLATELET [id number] 16:46:00 Test Item Value Reference Range Interpretation Comments PLATELET COUNT (BEAKER) (test code 86 K/CU MM 150-450 L = 756) BLOOD GAS, [id number] 16:36:00 Test Item Value Reference Range Interpretation [...] (test 37.0 C code = 1818) CALCIUM, [id number] 16:36:00 Test Item Value Reference Range Interpretation Comments CALCIUM IONIZED (BEAKER) (test 1.08 mmol/L 1.12-1.27 L code = 698) PH, BLOOD (BEAKER) (test code = 7.46 1810) [id number] 15:00:00 Test Item Value Reference Range Interpretation Comments POTASSIUM (BEAKER) (test code = 4.7 meq/L 3.5-5.1 379) [id number] 15:00:00 Test Item Value Reference Range Interpretation Comments GLUCOSE RANDOM (BEAKER) (test code 210 mg/dL 70-105 H = 652) BLOOD GAS, [id number] 14:42:00 Test Item Value Reference Range Interpretation [...] 40.0 % RAD, CHEST, 1 VIEW, NON [id number] 14:41:00Reason for exam:->chest tube insertionFINAL REPORT CHEST [...] MDReport Verified Date/Time: 01/12/2018 14:41:22 Reading Location: [facility] Transitional Reading Room MBOELASTOGRAPH (TEG)2018-01-12 [...] (test 0.0 % 0.0-5.0 code = 1414) [id number] 11:23:00 Test Item Value Reference Range Interpretation [...] exclusion of thrombosis is within 95-100% range. [id number] 10:10:00 Test Item Value Reference Range Interpretation Comments MAGNESIUM (BEAKER) 2.1 mg/dL 1.6-2.6 Specimen slightly (test code = 627) hemolyzed [id number] 10:10:00 Test Item Value Reference Range Interpretation Comments PHOSPHORUS (BEAKER) 4.2 mg/dL 2.3-4.7 Specimen slightly (test code = 604) hemolyzed [id number] 10:10:00 Test Item Value Reference Range Interpretation Comments POTASSIUM (BEAKER) 5.0 meq/L 3.5-5.1 Specimen slightly (test code = 379) hemolyzed [id number] 10:10:00 Test Item Value Reference Range Interpretation Comments GLUCOSE RANDOM (BEAKER) (test code 204 mg/dL 70-105 H = 652) [id number] 10:07:00 Test Item Value Reference Range Interpretation Comments FIBRINOGEN LEVEL (BEAKER) (test 251 mg/dl 225-434 code = 658) ANTITHROMBIN [id number] 10:04:00 Test Item Value Reference Range Interpretation Comments ANTITHROMBIN III ACTIVITY (BEAKER) 46.0 % 80.0-120.0 L (test code = 711) [id number] 09:58:00 Test Item Value Reference Range Interpretation Comments PARTIAL THROMBOPLASTIN TIME 59.8 seconds 22.5-36.0 H (BEAKER) (test code = 760) PROTHROMBIN [id number] 09:57:00 Test Item Value Reference Range Interpretation Comments PROTIME (BEAKER) (test code = 19.3 seconds 11.7-14.7 H 759) INR (BEAKER) (test code = 370) 1.6 <=5.9 RECOMMENDED COUMADIN/WARFARIN INR THERAPY RANGESSTANDARD DOSE: 2.0 - 3.0 Includes: PROPHYLAXIS forvenous thrombosis, systemic embolization; TREATMENT for venous thrombosis and/or pulmonary embolus.HIGH RISK: Target INR is 2.5-3.5 for patients with mechanical heart valves.PLATELET [id number] 09:49:00 Test Item Value Reference Range Interpretation Comments PLATELET COUNT (BEAKER) (test code 94 K/CU MM 150-450 L = 756) BLOOD GAS, [id number] 09:47:00 Test Item Value Reference Range Interpretation [...] (test code = 1819) 40.0 % CALCIUM, [id number] 09:46:00 Test Item Value Reference Range Interpretation Comments CALCIUM IONIZED (BEAKER) (test 1.12 mmol/L 1.12-1.27 code = 698) PH, BLOOD (BEAKER) (test code = 7.47 1810) HEPARIN ASSAY - [id number] 08:21:00 Test Item Value Reference Range Interpretation Comments UNFRACTIONATED HEPARIN-ANTI 10A < u/ml 0.30-0.70 L (BEAKER) (test code = 1606) Recommendations for Monitoring Unfractionated Heparin Therapeutic Range: 0.3- 0.7 u/mL with continuous IV infusionLACTATE DEHYDROGENASE (LDH)2018-01-12 07:40:00 Test Item Value Reference Range Interpretation Comments LACTATE DEHYDROGENASE (BEAKER) (test 3247 U/L 125-220 H code = 635) [id number] 07:38:00 Test Item Value Reference Range Interpretation Comments MAGNESIUM (BEAKER) (test code = 2.3 mg/dL 1.6-2.6 627) [id number] 07:38:00 Test Item Value Reference Range Interpretation Comments GLUCOSE RANDOM (BEAKER) (test code 217 mg/dL 70-105 H = 652) LACTIC ACID, ARTERIAL, WHOLE [id number] 07:27:00 Test Item Value Reference Range Interpretation Comments LACTATE BLOOD ARTERIAL (2) 1.4 mmol/L 0.5-2.2 (BEAKER) (test code = 2874) Effective 01/04/2016: Units/Reference Range ChangeNew: 0.5-2.2 mmol/L Previous: 5-20 mg/dLSpecimen slightly ictericGLUCOSE-STAT [id number] 06:55:00 Test Item Value Reference Range Interpretation Comments GLUCOSE RANDOM (BEAKER) (test code 212 mg/dL 70-110 H = 652) BLOOD GAS, [id number] 06:55:00 Test Item Value Reference Range Interpretation [...] (test code = 1819) 40.0 % POTASSIUM-STAT [id number] 06:52:00 Test Item Value Reference Range Interpretation Comments POTASSIUM (BEAKER) (test code = 4.8 meq/L 3.6-5.5 379) BLOOD GAS, [id number] 06:43:00 Test Item Value Reference Range Interpretation [...] 100.0 % RAD, CHEST, 1 VIEW, NON [id number] 06:14:00Reason for exam:- >impella/ECMO/intubationShould this be performed [...] Verified Date/Time: 01/12/2018 06:14:29 Reading Location: [address] Transitional Reading Room LACTATE DEHYDROGENASE (LDH)2018-01-12 05:03:00 Test Item Value Reference Range Interpretation Comments LACTATE DEHYDROGENASE (BEAKER) (test 3014 U/L 125-220 H code = 635) HEPATIC FUNCTION [id number] 05:03:00 Test Item Value Reference Range Interpretation [...] 1544 U/L 6-55 H 347) Specimen slightly [id number] 05:01:00 Test Item Value Reference Range Interpretation Comments PHOSPHORUS (BEAKER) (test code = 5.0 mg/dL 2.3-4.7 H 604) [id number] 05:01:00 Test Item Value Reference Range Interpretation Comments MAGNESIUM (BEAKER) (test code = 2.1 mg/dL 1.6-2.6 627) [id number] 05:01:00 Test Item Value Reference Range Interpretation Comments CALCIUM (BEAKER) (test code = 697) 8.5 mg/dL 8.4-10.2 BASIC METABOLIC [id number] 05:01:00 Test Item Value Reference Range Interpretation [...] TS. Specimen slightly ictericLACTIC ACID, ARTERIAL, WHOLE [id number] 04:42:00 Test Item Value Reference Range Interpretation Comments LACTATE BLOOD ARTERIAL (2) 1.5 mmol/L 0.5-2.2 (BEAKER) (test code = 2874) Effective 01/04/2016: Units/Reference Range ChangeNew: 0.5-2.2 mmol/L Previous: 5-20 mg/dLSpecimen slightly [id number] 04:38:00 Test Item Value Reference Range Interpretation Comments FIBRINOGEN LEVEL (BEAKER) (test 252 mg/dl 225-434 code = 658) [id number] 04:38:00 Test Item Value Reference Range Interpretation Comments PARTIAL THROMBOPLASTIN TIME 54.6 seconds 22.5-36.0 H (BEAKER) (test code = 760) CBC W/PLT COUNT & AUTO [id number] 04:37:00 Test Item Value Reference Range Interpretation [...] PERCENT (BEAKER) (test code = 2801) PROTHROMBIN [id number] 04:37:00 Test Item Value Reference Range Interpretation Comments PROTIME (BEAKER) (test code = 19.9 seconds 11.7-14.7 H 759) INR (BEAKER) (test code = 370) 1.7 <=5.9 RECOMMENDED COUMADIN/WARFARIN INR THERAPY RANGESSTANDARD DOSE: 2.0 - 3.0 Includes: PROPHYLAXIS forvenous thrombosis, systemic embolization; TREATMENT for venous thrombosis and/or pulmonary embolus.HIGH RISK: Target INR is 2.5-3.5 for patients with mechanical heart valves.CALCIUM, [id number] 04:31:00 Test Item Value Reference Range Interpretation Comments CALCIUM IONIZED (BEAKER) (test 1.12 mmol/L 1.12-1.27 code = 698) PH, BLOOD (BEAKER) (test code = 7.42 1810) BLOOD GAS, [id number] 04:30:00 Test Item Value Reference Range Interpretation [...] (test code = 1819) 40.0 % PLATELET [id number] 04:23:00 Test Item Value Reference Range Interpretation Comments PLATELET COUNT (BEAKER) (test 110 K/CU MM 150-450 L code = 756) OXYGEN SATURATION, [id number] 04:14:00 Test Item Value Reference Range Interpretation Comments O2 SATURATION (MEASURED) (BEAKER) 79.7 % (test code = 1455) [id number] 02:54:00 Test Item Value Reference Range Interpretation Comments PARTIAL THROMBOPLASTIN TIME 134.3 seconds 22.5-36.0 H (BEAKER) (test code = 760) [id number] 02:25:00 Test Item Value Reference Range Interpretation Comments PARTIAL THROMBOPLASTIN TIME 94.0 seconds 22.5-36.0 H (BEAKER) (test code = 760) BLOOD GAS, [id number] 01:56:00 Test Item Value Reference Range Interpretation [...] (test code = 1819) 40.0 % GLUCOSE-STAT [id number] 01:53:00 Test Item Value Reference Range Interpretation Comments GLUCOSE RANDOM (BEAKER) (test code 201 mg/dL 70-110 H = 652) POTASSIUM-STAT [id number] 01:52:00 Test Item Value Reference Range Interpretation Comments POTASSIUM (BEAKER) (test code = 4.9 meq/L 3.6-5.5 379) LACTIC ACID, ARTERIAL, WHOLE [id number] 01:18:00 Test Item Value Reference Range Interpretation Comments LACTATE BLOOD ARTERIAL (2) 2.0 mmol/L 0.5-2.2 (BEAKER) (test code = 2874) Effective 01/04/2016: Units/Reference Range ChangeNew: 0.5-2.2 mmol/L Previous: 5-20 mg/dLSpecimen slightly [id number] 01:18:00 Test Item Value Reference Range Interpretation Comments POTASSIUM (BEAKER) (test code = 5.1 meq/L 3.5-5.1 379) [id number] 01:18:00 Test Item Value Reference Range Interpretation Comments GLUCOSE RANDOM (BEAKER) (test code 194 mg/dL 70-105 H = 652) PROTHROMBIN [id number] 01:15:00 Test Item Value Reference Range Interpretation Comments PROTIME (BEAKER) (test code = 21.2 seconds 11.7-14.7 H 759) INR (BEAKER) (test code = 370) 1.8 <=5.9 RECOMMENDED COUMADIN/WARFARIN INR THERAPY RANGESSTANDARD DOSE: 2.0 - 3.0 Includes: PROPHYLAXIS forvenous thrombosis, systemic embolization; TREATMENT for venous thrombosis and/or pulmonary embolus.HIGH RISK: Target INR is 2.5-3.5 for patients with mechanical heart valves.[id number] 01:15:00 Test Item Value Reference Range Interpretation Comments FIBRINOGEN LEVEL (BEAKER) (test 233 mg/dl 225-434 code = 658) PLATELET [id number] 01:01:00 Test Item Value Reference Range Interpretation Comments PLATELET COUNT (BEAKER) (test code 84 K/CU MM 150-450 L = 756) BLOOD GAS, [id number] 01:00:00 Test Item Value Reference Range Interpretation [...] (test code = 1819) 40.0 % CALCIUM, [id number] 01:00:00 Test Item Value Reference Range Interpretation [...] 0.0-5.0 (BEAKER) (test code = 1414) GLUCOSE-STAT [id number] 23:53:00 Test Item Value Reference Range Interpretation Comments GLUCOSE RANDOM (BEAKER) (test code 182 mg/dL 70-110 H = 652) BLOOD GAS, [id number] 23:52:00 Test Item Value Reference Range Interpretation [...] FIO2 (BEAKER) (test code = 1819) 40 [id number] 23:05:00 Test Item Value Reference Range Interpretation Comments PARTIAL THROMBOPLASTIN TIME > seconds 22.5-36.0 HH (BEAKER) (test code = 760) BLOOD GAS, [id number] 23:01:00 Test Item Value Reference Range Interpretation [...] (BEAKER) (test code = 1819) 100.0 % [id number] 22:46:00 Test Item Value Reference Range Interpretation Comments FIBRINOGEN LEVEL (BEAKER) (test 223 mg/dl 225-434 L code = 658) PROTHROMBIN [id number] 22:45:00 Test Item Value Reference Range Interpretation Comments PROTIME (BEAKER) (test code = 23.0 seconds 11.7-14.7 H 759) INR (BEAKER) (test code = 370) 2.0 <=5.9 RECOMMENDED COUMADIN/WARFARIN INR THERAPY RANGESSTANDARD DOSE: 2.0 - 3.0 Includes: PROPHYLAXIS forvenous thrombosis, systemic embolization; TREATMENT for venous thrombosis and/or pulmonary embolus.HIGH RISK: Target INR is 2.5-3.5 for patients with mechanical heart valves.BLOOD GAS, [id number] 22:22:00 Test Item Value Reference Range Interpretation [...] (test code = 1819) 40.0 % CALCIUM, [id number] 22:21:00 Test Item Value Reference Range Interpretation Comments CALCIUM IONIZED (BEAKER) (test 1.05 mmol/L 1.12-1.27 L code = 698) PH, BLOOD (BEAKER) (test code = 7.67 1810) PLATELET [id number] 22:21:00 Test Item Value Reference Range Interpretation Comments PLATELET COUNT (BEAKER) (test code 71 K/CU MM 150-450 L = 756) GLUCOSE-STAT [id number] 22:20:00 Test Item Value Reference Range Interpretation Comments GLUCOSE RANDOM (BEAKER) (test code 189 mg/dL 70-110 H = 652) POTASSIUM-STAT [id number] 22:19:00 Test Item Value Reference Range Interpretation [...] 2133 U/L 125-220 H code = 635) [id number] 20:55:00 Test Item Value Reference Range Interpretation Comments POTASSIUM (BEAKER) (test code = 5.4 meq/L 3.5-5.1 H 379) [id number] 20:55:00 Test Item Value Reference Range Interpretation Comments MAGNESIUM (BEAKER) (test code = 1.6 mg/dL 1.6-2.6 627) [id number] 20:55:00 Test Item Value Reference Range Interpretation Comments PHOSPHORUS (BEAKER) (test code = 2.9 mg/dL 2.3-4.7 604) GLUCOSE-STAT [id number] 20:31:00 Test Item Value Reference Range Interpretation Comments GLUCOSE RANDOM (BEAKER) (test code 166 mg/dL 70-110 H = 652) POTASSIUM-STAT [id number] 20:30:00 Test Item Value Reference Range Interpretation Comments POTASSIUM (BEAKER) (test code = 5.2 meq/L 3.6-5.5 379) BLOOD GAS, [id number] 20:30:00 Test Item Value Reference Range Interpretation [...] code = 1819) 40.0 % OXYGEN SATURATION, [id number] 18:46:00 Test Item Value Reference Range Interpretation Comments O2 SATURATION (MEASURED) (BEAKER) 81.5 % (test code = 1455) RAD, CHEST, 1 VIEW, NON [id number] 18:27:00Reason for exam:->impella/ECMO placementShould this be performed [...] MDReport Verified Date/Time: 01/11/2018 18:27:33 Reading Location: [address] Ortho Consult Reading Room [id number] 18:11:00 Test Item Value Reference Range Interpretation Comments PARTIAL THROMBOPLASTIN TIME > seconds 22.5-36.0 HH (BEAKER) (test code = 760) LACTATE DEHYDROGENASE (LDH)2018-01-11 18:09:00 Test Item Value Reference Range Interpretation Comments LACTATE DEHYDROGENASE 1590 U/L 125-220 H Specim en slightly (BEAKER) (test code = hemoly zed 635) BASIC METABOLIC [id number] 18:08:00 Test Item Value Reference Range Interpretation [...] S NOT APPLICABLE FOR DIALYSIS PATIEN TS. [id number] 17:54:00 Test Item Value Reference Range Interpretation Comments MAGNESIUM (BEAKER) 1.8 mg/dL 1.6-2.6 Specimen slightly (test code = 627) hemolyzed [id number] 17:54:00 Test Item Value Reference Range Interpretation Comments PHOSPHORUS (BEAKER) 4.6 mg/dL 2.3-4.7 Specimen slightly (test code = 604) hemolyzed LACTIC ACID, ARTERIAL, WHOLE [id number] 17:53:00 Test Item Value Reference Range Interpretation Comments LACTATE BLOOD 10.8 mmol/L 0.5-2.2 H Specimen sligh tly ARTERIAL (2) (BEAKER) hemoly zed (test code = 2874) Effective 01/04/2016: Units/Reference Range ChangeNew: 0.5-2.2 mmol/L Previous: 5-20 mg/[id number] 17:46:00 Test Item Value Reference Range Interpretation [...] exclusion of thrombosis is within 95-100% range. [id number] 17:46:00 Test Item Value Reference Range Interpretation Comments FIBRINOGEN LEVEL (BEAKER) (test 201 mg/dl 225-434 L code = 658) PROTHROMBIN [id number] 17:45:00 Test Item Value Reference Range Interpretation Comments PROTIME (BEAKER) (test code = 24.4 seconds 11.7-14.7 H 759) INR (BEAKER) (test code = 370) 2.2 <=5.9 RECOMMENDED COUMADIN/WARFARIN INR THERAPY RANGESSTANDARD DOSE: 2.0 - 3.0 Includes: PROPHYLAXIS forvenous thrombosis, systemic embolization; TREATMENT for venous thrombosis and/or pulmonary embolus.HIGH RISK: Target INR is 2.5-3.5 for patients with mechanical heart valves.BLOOD GAS, [id number] 17:44:00 Test Item Value Reference Range Interpretation [...] code = 1819) 40.0 % SODIUM NA-STAT [id number] 17:44:00 Test Item Value Reference Range Interpretation Comments SODIUM (BEAKER) (test code = 381) 134 meq/L 135-148 L POTASSIUM-STAT [id number] 17:44:00 Test Item Value Reference Range Interpretation Comments POTASSIUM (BEAKER) (test code = 6.2 meq/L 3.6-5.5 HH 379) GLUCOSE-STAT [id number] 17:44:00 Test Item Value Reference Range Interpretation Comments GLUCOSE RANDOM (BEAKER) (test code 147 mg/dL 70-110 H = 652) HGB/HCT (H&H) - STAT [id number] 17:44:00 Test Item Value Reference Range Interpretation Comments HEMOGLOBIN (BEAKER) (test code = 9.9 g/dL 13.0-16.8 L 410) HEMATOCRIT (BEAKER) (test code = 29.0 % 40.0-50.0 L 411) CALCIUM, [id number] 17:41:00 Test Item Value Reference Range Interpretation Comments CALCIUM IONIZED (BEAKER) (test 1.03 mmol/L 1.12-1.27 L code = 698) PH, BLOOD (BEAKER) (test code = 7.52 1810) OXYGEN SATURATION, [id number] 17:39:00 Test Item Value Reference Range Interpretation Comments O2 SATURATION (MEASURED) (BEAKER) 84.5 % (test code = 1455) CBC W/PLT COUNT & AUTO [id number] 17:37:00 Test Item Value Reference Range Interpretation [...] 0-1 PERCENT (BEAKER) (test code = 2801) [id number] 16:35:00 Test Item Value Reference Range Interpretation Comments ACTIVATED CLOTTING TIME 230 sec TEST ED AT [place] [address] ([facility]) (test code = [facility] [place] [address]) [address] [id number] 16:35:00 Test Item Value Reference Range Interpretation Comments ACTIVATED CLOTTING TIME 191 sec TEST ED AT [place] [address] ([facility]) (test code = [place] [address]) [address] BLOOD GAS, [id number] 16:20:00 Test Item Value Reference Range Interpretation [...] (test code = 1819) 100 BLOOD GAS, [id number] 16:19:00 Test Item Value Reference Range Interpretation [...] drawn from ECMO circuitLACTIC ACID, ARTERIAL, WHOLE [id number] 14:07:00 Test Item Value Reference Range Interpretation Comments LACTATE BLOOD 13.1 mmol/L 0.5-2.2 H Specimen sligh tly ARTERIAL (2) (BEAKER) hemoly zed (test code = 2874) Effective 01/04/2016: Units/Reference Range ChangeNew: 0.5-2.2 mmol/L Previous: 5-20 mg/dLPROTHROMBIN [id number] 14:01:00 Test Item Value Reference Range Interpretation Comments PROTIME (BEAKER) (test code = 20.9 seconds 11.7-14.7 H 759) INR (BEAKER) (test code = 370) 1.8 <=5.9 RECOMMENDED COUMADIN/WARFARIN INR THERAPY RANGESSTANDARD DOSE: 2.0 - 3.0 Includes: PROPHYLAXIS forvenous thrombosis, systemic embolization; TREATMENT for venous thrombosis and/or pulmonary embolus.HIGH RISK: Target INR is 2.5-3.5 for patients with mechanical heart valves.[id number] 14:01:00 Test Item Value Reference Range Interpretation Comments FIBRINOGEN LEVEL (BEAKER) (test 227 mg/dl 225-434 code = 658) PLATELET [id number] 13:54:00 Test Item Value Reference Range Interpretation Comments PLATELET COUNT (BEAKER) (test 115 K/CU MM 150-450 L code = 756) BLOOD GAS, [id number] 13:47:00 Test Item Value Reference Range Interpretation [...] (test code = 1819) 40.0 % GLUCOSE-STAT [id number] 13:47:00 Test Item Value Reference Range Interpretation Comments GLUCOSE RANDOM (BEAKER) (test code 134 mg/dL 70-110 H = 652) [id number] 12:33:00 Test Item Value Reference Range Interpretation Comments POTASSIUM (BEAKER) (test code = 5.6 meq/L 3.5-5.1 H 379) PRN - repeat glucose levels every 1 hour or as specified by insulin titration orders until glucose level is less than 450 mg/[id number] 12:33:00 Test Item Value Reference Range Interpretation Comments GLUCOSE RANDOM (BEAKER) (test code = 43 mg/dL 70-105 L 652) PRN - repeat glucose levels every 1 hour or as specified by insulin titration orders until glucose level is less than 450 mg/dLBASIC METABOLIC [id number] 11:05:00 Test Item Value Reference Range Interpretation [...] until glucose level is less than 450 mg/[id number] 11:05:00 Test Item Value Reference Range Interpretation Comments GLUCOSE RANDOM (BEAKER) (test code = 34 mg/dL 70-105 LL 652) [id number] 10:44:00 Test Item Value Reference Range Interpretation Comments POTASSIUM (BEAKER) (test code = 5.9 meq/L 3.5-5.1 H 379) HEPATIC FUNCTION [id number] 10:44:00 Test Item Value Reference Range Interpretation [...] Previous: 5-20 mg/dLCBC W/PLT COUNT & AUTO [id number] 10:23:00 Test Item Value Reference Range Interpretation [...] (BEAKER) (test code = 2801) BLOOD GAS, [id number] 10:20:00 Test Item Value Reference Range Interpretation [...] (BEAKER) (test code = 1819) 40.0 % [id number] 09:01:00 Test Item Value Reference Range Interpretation Comments POTASSIUM (BEAKER) (test code = 5.9 meq/L 3.5-5.1 H 379) PRN - repeat glucose levels every 1 hour or as specified by insulin titration orders until glucose level is less than 450 mg/[id number] 09:01:00 Test Item Value Reference Range Interpretation Comments MAGNESIUM (BEAKER) (test code = 1.7 mg/dL 1.6-2.6 627) PRN - repeat glucose levels every 1 hour or as specified by insulin titration orders until glucose level is less than 450 mg/[id number] 09:01:00 Test Item Value Reference Range Interpretation Comments PHOSPHORUS (BEAKER) (test code = 4.7 mg/dL 2.3-4.7 604) PRN - repeat glucose levels every 1 hour or as specified by insulin titration orders until glucose level is less than 450 mg/[id number] 09:01:00 Test Item Value Reference Range Interpretation Comments GLUCOSE RANDOM (BEAKER) (test code = 50 mg/dL 70-105 L 652) PRN - repeat glucose levels every 1 hour or as specified by insulin titration orders until glucose level is less than 450 mg/dLCALCIUM, [id number] 08:47:00 Test Item Value Reference Range Interpretation Comments CALCIUM IONIZED (BEAKER) (test 1.24 mmol/L 1.12-1.27 code = 698) PH, BLOOD (BEAKER) (test code = 7.31 1810) [id number] 08:45:00 Test Item Value Reference Range Interpretation Comments PARTIAL THROMBOPLASTIN TIME 53.7 seconds 22.5-36.0 H (BEAKER) (test code = 760) BLOOD GAS, [id number] 08:41:00 Test Item Value Reference Range Interpretation [...] (test code = 1819) 40.0 % PH, [id number] 08:41:00 Test Item Value Reference Range Interpretation Comments PH ARTERIAL (BEAKER) (test code = 383) 7.31 7.35-7.45 L RAD, CHEST, 1 VIEW, NON [id number] 07:31:00Reason for exam:->s/p cardiac surgeryShould this be [...] Xie MDReport VerifiedDate/Time: 01/11/2018 07:31:38 Reading Location: [facility] [id number] Ortho Consult Reading Room BLOOD GAS, [...] code = 1819) 40.0 % BASIC METABOLIC [id number] 06:12:00 Test Item Value Reference Range Interpretation [...] NOT APPLICABLE FOR DIALYSIS PATIEN TS. POCT-GLUCOSE [id number] 05:58:00 Test Item Value Reference Range Interpretation Comments POC-GLUCOSE METER 121 mg/dL 70-[address] [facility] 67[address] (BEAKER) (test code = [place] [facility] 1538) [address] POCT-GLUCOSE [id number] 05:58:00 Test Item Value Reference Range Interpretation Comments POC-GLUCOSE METER 66 mg/dL 70-110 L Will Repea t Test/TESTED (BEAKER) (test code = AT [facility] [address] [facility] 1538) [facility] [address] [id number] 05:51:00 Test Item Value Reference Range Interpretation Comments PHOSPHORUS (BEAKER) (test code = 3.5 mg/dL 2.3-4.7 604) [id number] 05:51:00 Test Item Value Reference Range Interpretation Comments MAGNESIUM (BEAKER) (test code = 1.9 mg/dL 1.6-2.6 627) BLOOD GAS, [id number] 05:47:00 Test Item Value Reference Range Interpretation [...] (test code = 1819) 40.0 % POCT-GLUCOSE [id number] 05:27:00 Test Item Value Reference Range Interpretation Comments POC-GLUCOSE METER 112 mg/dL 70-[address] [facility] 67[address] (BEAKER) (test code = [place] 1538) [address] POCT-GLUCOSE [id number] 05:27:00 Test Item Value Reference Range Interpretation Comments POC-GLUCOSE METER 106 mg/dL 70-[address] [facility] 6720 (BEAKER) (test code = [place] 1538) [address] POCT-GLUCOSE [id number] 05:26:00 Test Item Value Reference Range Interpretation Comments POC-GLUCOSE METER 66 mg/dL 70-[address] [facility] 67 (BEAKER) (test code = [place] [address] 1538) LACTIC ACID, ARTERIAL, WHOLE [id number] 04:59:00 Test Item Value Reference Range Interpretation Comments LACTATE BLOOD 12.2 mmol/L 0.5-2.2 H Specimen sligh tly ARTERIAL (2) (BEAKER) hemoly zed (test code = 2874) Effective 01/04/2016: Units/Reference Range ChangeNew: 0.5-2.2 mmol/L Previous: 5-20 mg/dLCALCIUM, [id number] 04:57:00 Test Item Value Reference Range Interpretation Comments CALCIUM IONIZED (BEAKER) (test 1.33 mmol/L 1.12-1.27 H code = 698) PH, BLOOD (BEAKER) (test code = 7.30 1810) BLOOD GAS, [id number] 04:57:00 Test Item Value Reference Range Interpretation [...] code = 1819) 45.0 % OXYGEN SATURATION, [id number] 04:56:00 Test Item Value Reference Range Interpretation Comments O2 SATURATION (MEASURED) (BEAKER) 83.2 % (test code = 1455) CBC W/PLT COUNT & AUTO [id number] 04:56:00 Test Item Value Reference Range Interpretation [...] PERCENT (BEAKER) (test code = 2801) CALCIUM, [id number] 03:38:00 Test Item Value Reference Range Interpretation Comments CALCIUM IONIZED (BEAKER) (test 1.32 mmol/L 1.12-1.27 H code = 698) PH, BLOOD (BEAKER) (test code = 7.29 1810) BLOOD GAS, [id number] 03:36:00 Test Item Value Reference Range Interpretation [...] 1819) 50.0 % HGB/HCT (H&H) - STAT [id number] 03:36:00 Test Item Value Reference Range Interpretation Comments HEMOGLOBIN (BEAKER) (test code = 12.5 g/dL 13.0-16.8 L 410) HEMATOCRIT (BEAKER) (test code = 37.0 % 40.0-50.0 L 411) OXYGEN SATURATION, [id number] 03:35:00 Test Item Value Reference Range Interpretation Comments O2 SATURATION (MEASURED) (BEAKER) 80.3 % (test code = 1455) GLUCOSE-STAT [id number] 03:34:00 Test Item Value Reference Range Interpretation Comments GLUCOSE RANDOM (BEAKER) (test code = 91 mg/dL 70-110 652) SODIUM NA-STAT [id number] 03:34:00 Test Item Value Reference Range Interpretation Comments SODIUM (BEAKER) (test code = 381) 137 meq/L 135-148 POTASSIUM-STAT [id number] 03:34:00 Test Item Value Reference Range Interpretation Comments POTASSIUM (BEAKER) (test code = 4.6 meq/L 3.6-5.5 379) BLOOD GAS, [id number] 03:01:00 Test Item Value Reference Range Interpretation [...] 1819) 50.0 % HGB/HCT (H&H) - STAT [id number] 03:01:00 Test Item Value Reference Range Interpretation Comments HEMOGLOBIN (BEAKER) (test code = 12.0 g/dL 13.0-16.8 L 410) HEMATOCRIT (BEAKER) (test code = 35.0 % 40.0-50.0 L 411) POTASSIUM-STAT [id number] 03:00:00 Test Item Value Reference Range Interpretation Comments POTASSIUM (BEAKER) (test code = 5.0 meq/L 3.6-5.5 379) GLUCOSE-STAT [id number] 03:00:00 Test Item Value Reference Range Interpretation Comments GLUCOSE RANDOM (BEAKER) (test code 102 mg/dL 70-110 = 652) SODIUM NA-STAT [id number] 03:00:00 Test Item Value Reference Range Interpretation Comments SODIUM (BEAKER) (test code = 381) 140 meq/L 135-148 LACTIC ACID, ARTERIAL, WHOLE [id number] 01:53:00 Test Item Value Reference Range Interpretation Comments LACTATE BLOOD 9.4 mmol/L 0.5-2.2 H Specimen sligh tly ARTERIAL (2) (BEAKER) hemoly zed (test code = 2874) Effective 01/04/2016: Units/Reference Range ChangeNew: 0.5-2.2 mmol/L Previous: 5-20 mg/dLGLUCOSE-STAT [id number] 01:27:00 Test Item Value Reference Range Interpretation Comments GLUCOSE RANDOM (BEAKER) (test code = 99 mg/dL 70-110 652) BLOOD GAS, [id number] 01:27:00 Test Item Value Reference Range Interpretation [...] 1819) 100.0 % HGB/HCT (H&H) - STAT [id number] 01:27:00 Test Item Value Reference Range Interpretation Comments HEMOGLOBIN (BEAKER) (test code = 12.7 g/dL 13.0-16.8 L 410) HEMATOCRIT (BEAKER) (test code = 37.0 % 40.0-50.0 L 411) SODIUM NA-STAT [id number] 01:26:00 Test Item Value Reference Range Interpretation Comments SODIUM (BEAKER) (test code = 381) 141 meq/L 135-148 POTASSIUM-STAT [id number] 01:26:00 Test Item Value Reference Range Interpretation Comments POTASSIUM (BEAKER) (test code = 3.6 meq/L 3.6-5.5 379) [id number] 00:38:00 Test Item Value Reference Range Interpretation Comments PARTIAL THROMBOPLASTIN TIME 47.4 seconds 22.5-36.0 H (BEAKER) (test code = 760) [id number] 00:35:00 Test Item Value Reference Range Interpretation Comments POTASSIUM (BEAKER) 3.5 meq/L 3.5-5.1 Specimen slightly (test code = 379) hemolyzed CALCIUM, [id number] 00:25:00 Test Item Value Reference Range Interpretation [...] = 1414) RAD, CHEST, 1 VIEW, NON [id number] 22:36:00Reason for exam:->s/p BronchoscopyFINAL REPORT CLINICAL INDICATION: Post bronchoscopy Comparison: Same date [id number] hours There is improved aeration of the right upper lobe. No pneumothorax is present. Hazy opacity in the right upper lobe and in the retrocardiac lower lungs may reflect atelectasis but pneumonitis should be excluded clinically. The cardiomediastinal contours are stable. Support lines are stable. Signed: Parra, Kellen MDReport Verified Date/Time: 01/10/2018 22:36:29 Reading Location: [address] Reading Room C METABOLIC [id number] 22:01:00 Test Item Value Reference Range Interpretation [...] S NOT APPLICABLE FOR DIALYSIS PATIEN TS. [id number] 22:00:00 Test Item Value Reference Range Interpretation Comments MAGNESIUM (BEAKER) 2.4 mg/dL 1.6-2.6 Specimen slightly (test code = 627) hemolyzed [id number] 22:00:00 Test Item Value Reference Range Interpretation Comments PHOSPHORUS (BEAKER) 3.2 mg/dL 2.3-4.7 Specimen slightly (test code = 604) hemolyzed LACTIC ACID, ARTERIAL, WHOLE [id number] 21:57:00 Test Item Value Reference Range Interpretation Comments LACTATE BLOOD 10.2 mmol/L 0.5-2.2 H Specimen sligh tly ARTERIAL (2) (BEAKER) hemoly zed (test code = 2874) Effective 01/04/2016: Units/Reference Range ChangeNew: 0.5-2.2 mmol/L Previous: 5-20 mg/dLCBC W/PLT COUNT & AUTO [id number] 21:51:00 Test Item Value Reference Range Interpretation [...] 0-1 PERCENT (BEAKER) (test code = 2801) [id number] 21:49:00 Test Item Value Reference Range Interpretation Comments PARTIAL THROMBOPLASTIN TIME 41.2 seconds 22.5-36.0 H (BEAKER) (test code = 760) PROTHROMBIN [id number] 21:48:00 Test Item Value Reference Range Interpretation Comments PROTIME (BEAKER) (test code = 19.8 seconds 11.7-14.7 H 759) INR (BEAKER) (test code = 370) 1.7 <=5.9 RECOMMENDED COUMADIN/WARFARIN INR THERAPY RANGESSTANDARD DOSE: 2.0 - 3.0 Includes: PROPHYLAXIS forvenous thrombosis, systemic embolization; TREATMENT for venous thrombosis and/or pulmonary embolus.HIGH RISK: Target INR is 2.5-3.5 for patients with mechanical heart valves.[id number] 21:48:00 Test Item Value Reference Range Interpretation Comments FIBRINOGEN LEVEL (BEAKER) (test 221 mg/dl 225-434 L code = 658) CALCIUM, [id number] 21:33:00 Test Item Value Reference Range Interpretation Comments CALCIUM IONIZED (BEAKER) (test 1.54 mmol/L 1.12-1.27 H code = 698) PH, BLOOD (BEAKER) (test code = 7.33 1810) OXYGEN SATURATION, [id number] 21:33:00 Test Item Value Reference Range Interpretation Comments O2 SATURATION (MEASURED) (BEAKER) 67.1 % (test code = 1455) GLUCOSE-STAT [id number] 21:32:00 Test Item Value Reference Range Interpretation Comments GLUCOSE RANDOM (BEAKER) (test code = 98 mg/dL 70-110 652) SODIUM NA-STAT [id number] 21:32:00 Test Item Value Reference Range Interpretation Comments SODIUM (BEAKER) (test code = 381) 139 meq/L 135-148 POTASSIUM-STAT [id number] 21:32:00 Test Item Value Reference Range Interpretation Comments POTASSIUM (BEAKER) (test code = 3.6 meq/L 3.6-5.5 379) BLOOD GAS, [id number] 21:32:00 Test Item Value Reference Range Interpretation [...] 1819) 60.0 % HGB/HCT (H&H) - STAT [id number] 21:32:00 Test Item Value Reference Range Interpretation Comments HEMOGLOBIN (BEAKER) (test code = 8.2 g/dL 13.0-16.8 L 410) HEMATOCRIT (BEAKER) (test code = 24.0 % 40.0-50.0 L 411) RAD, CHEST, 1 VIEW, NON [id number] 21:32:00Reason for exam:->s/p cardiac surgeryShould this be [...] the level of the clavicles. Right IJ Dyke-Moni catheter terminatesin the distal right pulmonary artery. The soft tissues and osseous structures are intact. IMPRESSION: Postoperative changes with right upper lobe collapse, likely secondary to mucous plugging. Supporting lines and tubes as described above. Note position of the Dyke-Moni catheter. Signed: Moiz Musa MDReport Verified Date/Time: 01/10/2018 21:32:31 Reading Location: [facility] [id number] Consult Reading Room THROMBOELASTOGRAPH (TEG)2018-01-10 21:01:00 [...] 55.0-65.0 L (test code = 1413) CALCIUM, [id number] 20:42:00 Test Item Value Reference Range Interpretation Comments CALCIUM IONIZED (BEAKER) (test 1.41 mmol/L 1.12-1.27 H code = 698) PH, BLOOD (BEAKER) (test code = 7.41 1810) SODIUM NA-STAT [id number] 20:41:00 Test Item Value Reference Range Interpretation Comments SODIUM (BEAKER) (test code = 381) 138 meq/L 135-148 POTASSIUM-STAT [id number] 20:41:00 Test Item Value Reference Range Interpretation Comments POTASSIUM (BEAKER) (test code = 3.7 meq/L 3.6-5.5 379) BLOOD GAS, [id number] 20:41:00 Test Item Value Reference Range Interpretation [...] (test code = 1819) 100.0 % GLUCOSE-STAT [id number] 20:41:00 Test Item Value Reference Range Interpretation Comments GLUCOSE RANDOM (BEAKER) (test code 120 mg/dL 70-110 H = 652) HGB/HCT (H&H) - STAT [id number] 20:41:00 Test Item Value Reference Range Interpretation Comments HEMOGLOBIN (BEAKER) (test code = 7.8 g/dL 13.0-16.8 L 410) HEMATOCRIT (BEAKER) (test code = 23.0 % 40.0-50.0 L 411) [id number] 20:23:00 Test Item Value Reference Range Interpretation Comments FIBRINOGEN LEVEL (BEAKER) (test 239 mg/dl 225-434 code = 658) [id number] 20:23:00 Test Item Value Reference Range Interpretation Comments PARTIAL THROMBOPLASTIN TIME 38.6 seconds 22.5-36.0 H (BEAKER) (test code = 760) PROTHROMBIN [id number] 20:22:00 Test Item Value Reference Range Interpretation Comments PROTIME (BEAKER) (test code = 21.6 seconds 11.7-14.7 H 759) INR (BEAKER) (test code = 370) 1.9 <=5.9 RECOMMENDED COUMADIN/WARFARIN INR THERAPY RANGESSTANDARD DOSE: 2.0 - 3.0 Includes: PROPHYLAXIS forvenous thrombosis, systemic embolization; TREATMENT for venous thrombosis and/or pulmonary embolus.HIGH RISK: Target INR is 2.5-3.5 for patients with mechanical heart valves.[id number] 20:16:00 Test Item Value Reference Range Interpretation Comments ACTIVATED CLOTTING TIME [address] [facility] 67[address] ([facility]) (test code = [place] [address]) [address] [id number] 20:16:00 Test Item Value Reference Range Interpretation Comments ACTIVATED CLOTTING TIME 499 sec TEST ED AT [place] [address] ([facility]) (test code = [place] [address]) [address] [id number] 20:16:00 Test Item Value Reference Range Interpretation Comments ACTIVATED CLOTTING TIME 483 sec TEST ED AT [place] [address] ([facility]) (test code = [place] [address]) [address] [id number] 20:16:00 Test Item Value Reference Range Interpretation Comments ACTIVATED CLOTTING TIME 538 sec TEST ED AT [place] [address] ([facility]) (test code = [place] [address]) [address] [id number] 20:16:00 Test Item Value Reference Range Interpretation Comments ACTIVATED CLOTTING TIME 615 sec TEST ED AT [place] [address] ([facility]) (test code = [place] [address]) [address] [id number] 20:16:00 Test Item Value Reference Range Interpretation Comments ACTIVATED CLOTTING TIME 692 sec TEST ED AT [place] [address] ([facility]) (test code = [place] [address]) [address] [id number] 20:16:00 Test Item Value Reference Range Interpretation Comments ACTIVATED CLOTTING TIME 428 sec TEST ED AT [place] [address] ([facility]) (test code = [place] [address]) [address] [id number] 20:16:00 Test Item Value Reference Range Interpretation Comments ACTIVATED CLOTTING TIME 373 sec TEST ED AT [place] [address] ([facility]) (test code = [place] [address]) [address] [id number] 20:16:00 Test Item Value Reference Range Interpretation Comments ACTIVATED CLOTTING TIME 455 sec TEST ED AT [place] [address] ([facility]) (test code = [place] [address]) [address] [id number] 20:16:00 Test Item Value Reference Range Interpretation Comments ACTIVATED CLOTTING TIME 494 sec TEST ED AT [place] [address] ([facility]) (test code = [place] [address]) [address] [id number] 20:16:00 Test Item Value Reference Range Interpretation Comments ACTIVATED CLOTTING TIME 527 sec TEST ED AT [place] [address] ([facility]) (test code = [place] [address]) [address] [id number] 20:16:00 Test Item Value Reference Range Interpretation Comments ACTIVATED CLOTTING TIME 610 sec TEST ED AT [place] [address] (BEAKER) (test code = [place] [address]) [address] [id number] 20:16:00 Test Item Value Reference Range Interpretation Comments ACTIVATED CLOTTING TIME 576 sec TEST ED AT [place] [address] (BEAKER) (test code = [place] [address]) [address] [id number] 20:16:00 Test Item Value Reference Range Interpretation Comments ACTIVATED CLOTTING TIME 384 sec TEST ED AT [place] [address] (BEAKER) (test code = [place] [address]) [address] PLATELET [id number] 20:08:00 Test Item Value Reference Range Interpretation [...] 0.0-5.0 (BEAKER) (test code = 1414) CALCIUM, [id number] 19:59:00 Test Item Value Reference Range Interpretation Comments CALCIUM IONIZED (BEAKER) (test 1.39 mmol/L 1.12-1.27 H code = 698) PH, BLOOD (BEAKER) (test code = 7.37 1810) BLOOD GAS, [id number] 19:58:00 Test Item Value Reference Range Interpretation [...] (test code = 1819) 100.0 % GLUCOSE-STAT [id number] 19:58:00 Test Item Value Reference Range Interpretation Comments GLUCOSE RANDOM (BEAKER) (test code 143 mg/dL 70-110 H = 652) HGB/HCT (H&H) - STAT [id number] 19:58:00 Test Item Value Reference Range Interpretation Comments HEMOGLOBIN (BEAKER) (test code = 8.7 g/dL 13.0-16.8 L 410) HEMATOCRIT (BEAKER) (test code = 26.0 % 40.0-50.0 L 411) SODIUM NA-STAT [id number] 19:57:00 Test Item Value Reference Range Interpretation Comments SODIUM (BEAKER) (test code = 381) 140 meq/L 135-148 POTASSIUM-STAT [id number] 19:57:00 Test Item Value Reference Range Interpretation Comments POTASSIUM (BEAKER) (test code = 3.9 meq/L 3.6-5.5 379) [id number] 19:29:00 Test Item Value Reference Range Interpretation Comments PARTIAL THROMBOPLASTIN TIME > seconds 22.5-36.0 HH (BEAKER) (test code = 760) [id number] 19:16:00 Test Item Value Reference Range Interpretation Comments FIBRINOGEN LEVEL (BEAKER) (test 271 mg/dl 225-434 code = 658) PROTHROMBIN [id number] 19:15:00 Test Item Value Reference Range Interpretation Comments PROTIME (BEAKER) (test code = 21.3 seconds 11.7-14.7 H 759) INR (BEAKER) (test code = 370) 1.8 <=5.9 RECOMMENDED COUMADIN/WARFARIN INR THERAPY RANGESSTANDARD DOSE: 2.0 - 3.0 Includes: PROPHYLAXIS forvenous thrombosis, systemic embolization; TREATMENT for venous thrombosis and/or pulmonary embolus.HIGH RISK: Target INR is 2.5-3.5 for patients with mechanical heart valves.PLATELET [id number] 19:06:00 Test Item Value Reference Range Interpretation Comments PLATELET COUNT (BEAKER) (test code 54 K/CU MM 150-450 L = 756) BLOOD GAS, [id number] 18:49:00 Test Item Value Reference Range Interpretation [...] 1819) 100.0 % HGB/HCT (H&H) - STAT [id number] 18:44:00 Test Item Value Reference Range Interpretation Comments HEMOGLOBIN (BEAKER) (test code = 10.1 g/dL 13.0-16.8 L 410) HEMATOCRIT (BEAKER) (test code = 30.0 % 40.0-50.0 L 411) SODIUM NA-STAT [id number] 18:43:00 Test Item Value Reference Range Interpretation Comments SODIUM (BEAKER) (test code = 381) 137 meq/L 135-148 POTASSIUM-STAT [id number] 18:43:00 Test Item Value Reference Range Interpretation Comments POTASSIUM (BEAKER) (test code = 5.0 meq/L 3.6-5.5 379) GLUCOSE-STAT [id number] 18:43:00 Test Item Value Reference Range Interpretation Comments GLUCOSE RANDOM (BEAKER) (test code 187 mg/dL 70-110 H = 652) SODIUM NA-STAT [id number] 18:22:00 Test Item Value Reference Range Interpretation Comments SODIUM (BEAKER) (test code = 381) 140 meq/L 135-148 POTASSIUM-STAT [id number] 18:22:00 Test Item Value Reference Range Interpretation Comments POTASSIUM (BEAKER) (test code = 4.7 meq/L 3.6-5.5 379) BLOOD GAS, [id number] 18:22:00 Test Item Value Reference Range Interpretation [...] (test code = 1819) 60.0 % GLUCOSE-STAT [id number] 18:22:00 Test Item Value Reference Range Interpretation Comments GLUCOSE RANDOM (BEAKER) (test code 209 mg/dL 70-110 H = 652) HGB/HCT (H&H) - STAT [id number] 18:22:00 Test Item Value Reference Range Interpretation Comments HEMOGLOBIN (BEAKER) (test code = 10.2 g/dL 13.0-16.8 L 410) HEMATOCRIT (BEAKER) (test code = 30.0 % 40.0-50.0 L 411) BLOOD GAS, [id number] 17:57:00 Test Item Value Reference Range Interpretation [...] (test code = 1819) 65.0 % GLUCOSE-STAT [id number] 17:57:00 Test Item Value Reference Range Interpretation Comments GLUCOSE RANDOM (BEAKER) (test code 198 mg/dL 70-110 H = 652) HGB/HCT (H&H) - STAT [id number] 17:57:00 Test Item Value Reference Range Interpretation Comments HEMOGLOBIN (BEAKER) (test code = 10.3 g/dL 13.0-16.8 L 410) HEMATOCRIT (BEAKER) (test code = 30.0 % 40.0-50.0 L 411) SODIUM NA-STAT [id number] 17:56:00 Test Item Value Reference Range Interpretation Comments SODIUM (BEAKER) (test code = 381) 138 meq/L 135-148 POTASSIUM-STAT [id number] 17:56:00 Test Item Value Reference Range Interpretation Comments POTASSIUM (BEAKER) (test code = 4.7 meq/L 3.6-5.5 379) BLOOD GAS, [id number] 17:28:00 Test Item Value Reference Range Interpretation [...] (test code = 1819) 65.0 % GLUCOSE-STAT [id number] 17:28:00 Test Item Value Reference Range Interpretation Comments GLUCOSE RANDOM (BEAKER) (test code 223 mg/dL 70-110 H = 652) HGB/HCT (H&H) - STAT [id number] 17:28:00 Test Item Value Reference Range Interpretation Comments HEMOGLOBIN (BEAKER) (test code = 10.1 g/dL 13.0-16.8 L 410) HEMATOCRIT (BEAKER) (test code = 30.0 % 40.0-50.0 L 411) SODIUM NA-STAT [id number] 17:27:00 Test Item Value Reference Range Interpretation Comments SODIUM (BEAKER) (test code = 381) 140 meq/L 135-148 POTASSIUM-STAT [id number] 17:27:00 Test Item Value Reference Range Interpretation [...] code = 1414) HGB/HCT (H&H) - STAT [id number] 17:01:00 Test Item Value Reference Range Interpretation Comments HEMOGLOBIN (BEAKER) (test code = 10.1 g/dL 13.0-16.8 L 410) HEMATOCRIT (BEAKER) (test code = 30.0 % 40.0-50.0 L 411) BLOOD GAS, [id number] 17:00:00 Test Item Value Reference Range Interpretation [...] (test code = 1819) 65.0 % GLUCOSE-STAT [id number] 17:00:00 Test Item Value Reference Range Interpretation Comments GLUCOSE RANDOM (BEAKER) (test code 243 mg/dL 70-110 H = 652) SODIUM NA-STAT [id number] 16:59:00 Test Item Value Reference Range Interpretation Comments SODIUM (BEAKER) (test code = 381) 139 meq/L 135-148 POTASSIUM-STAT [id number] 16:59:00 Test Item Value Reference Range Interpretation Comments POTASSIUM (BEAKER) (test code = 4.6 meq/L 3.6-5.5 379) [id number] 16:47:00 Test Item Value Reference Range Interpretation Comments PARTIAL THROMBOPLASTIN TIME > seconds 22.5-36.0 HH (BEAKER) (test code = 760) BLOOD GAS, [id number] 16:18:00 Test Item Value Reference Range Interpretation [...] (test code = 1819) 65.0 % GLUCOSE-STAT [id number] 16:18:00 Test Item Value Reference Range Interpretation Comments GLUCOSE RANDOM (BEAKER) (test code 279 mg/dL 70-110 H = 652) HGB/HCT (H&H) - STAT [id number] 16:18:00 Test Item Value Reference Range Interpretation Comments HEMOGLOBIN (BEAKER) (test code = 7.0 g/dL 13.0-16.8 L 410) HEMATOCRIT (BEAKER) (test code = 21.0 % 40.0-50.0 L 411) SODIUM NA-STAT [id number] 16:17:00 Test Item Value Reference Range Interpretation Comments SODIUM (BEAKER) (test code = 381) 137 meq/L 135-148 POTASSIUM-STAT [id number] 16:17:00 Test Item Value Reference Range Interpretation Comments POTASSIUM (BEAKER) (test code = 4.6 meq/L 3.6-5.5 379) [id number] 16:15:00 Test Item Value Reference Range Interpretation Comments FIBRINOGEN LEVEL (BEAKER) (test 255 mg/dl 225-434 code = 658) PROTHROMBIN [id number] 16:14:00 Test Item Value Reference Range Interpretation Comments PROTIME (BEAKER) (test code = 20.2 seconds 11.7-14.7 H 759) INR (BEAKER) (test code = 370) 1.7 <=5.9 RECOMMENDED COUMADIN/WARFARIN INR THERAPY RANGESSTANDARD DOSE: 2.0 - 3.0 Includes: PROPHYLAXIS forvenous thrombosis, systemic embolization; TREATMENT for venous thrombosis and/or pulmonary embolus.HIGH RISK: Target INR is 2.5-3.5 for patients with mechanical heart valves.PLATELET [id number] 16:02:00 Test Item Value Reference Range Interpretation Comments PLATELET COUNT (BEAKER) (test code 57 K/CU MM 150-450 L = 756) CALCIUM, [id number] 15:51:00 Test Item Value Reference Range Interpretation Comments CALCIUM IONIZED (BEAKER) (test 0.82 mmol/L 1.12-1.27 L code = 698) PH, BLOOD (BEAKER) (test code = 7.45 1810) BLOOD GAS, [id number] 15:51:00 Test Item Value Reference Range Interpretation [...] (test code = 1819) 100.0 % GLUCOSE-STAT [id number] 15:51:00 Test Item Value Reference Range Interpretation Comments GLUCOSE RANDOM (BEAKER) (test code 190 mg/dL 70-110 H = 652) HGB/HCT (H&H) - STAT [id number] 15:51:00 Test Item Value Reference Range Interpretation Comments HEMOGLOBIN (BEAKER) (test code = 7.6 g/dL 13.0-16.8 L 410) HEMATOCRIT (BEAKER) (test code = 22.0 % 40.0-50.0 L 411) POTASSIUM-STAT [id number] 15:51:00 Test Item Value Reference Range Interpretation Comments POTASSIUM (BEAKER) (test code = 5.6 meq/L 3.6-5.5 H 379) SODIUM NA-STAT [id number] 15:50:00 Test Item Value Reference Range Interpretation Comments SODIUM (BEAKER) (test code = 381) 139 meq/L 135-148 BLOOD GAS, [id number] 15:43:00 Test Item Value Reference Range Interpretation [...] (test code = 1819) 75.0 % GLUCOSE-STAT [id number] 15:43:00 Test Item Value Reference Range Interpretation Comments GLUCOSE RANDOM (BEAKER) (test code 189 mg/dL 70-110 H = 652) HGB/HCT (H&H) - STAT [id number] 15:43:00 Test Item Value Reference Range Interpretation Comments HEMOGLOBIN (BEAKER) (test code = 8.0 g/dL 13.0-16.8 L 410) HEMATOCRIT (BEAKER) (test code = 24.0 % 40.0-50.0 L 411) POTASSIUM-STAT [id number] 15:43:00 Test Item Value Reference Range Interpretation Comments POTASSIUM (BEAKER) (test code = 5.7 meq/L 3.6-5.5 H 379) SODIUM NA-STAT [id number] 15:42:00 Test Item Value Reference Range Interpretation Comments SODIUM (BEAKER) (test code = 381) 136 meq/L 135-148 SODIUM NA-STAT [id number] 15:06:00 Test Item Value Reference Range Interpretation Comments SODIUM (BEAKER) (test code = 381) 139 meq/L 135-148 BLOOD GAS, [id number] 15:06:00 Test Item Value Reference Range Interpretation [...] (test code = 1819) 60.0 % POTASSIUM-STAT [id number] 15:06:00 Test Item Value Reference Range Interpretation Comments POTASSIUM (BEAKER) (test code = 5.8 meq/L 3.6-5.5 H 379) GLUCOSE-STAT [id number] 15:06:00 Test Item Value Reference Range Interpretation Comments GLUCOSE RANDOM (BEAKER) (test code 192 mg/dL 70-110 H = 652) HGB/HCT (H&H) - STAT [id number] 15:06:00 Test Item Value Reference Range Interpretation Comments HEMOGLOBIN (BEAKER) (test code = 8.2 g/dL 13.0-16.8 L 410) HEMATOCRIT (BEAKER) (test code = 24.0 % 40.0-50.0 L 411) POTASSIUM-STAT [id number] 14:41:00 Test Item Value Reference Range Interpretation Comments POTASSIUM (BEAKER) (test code = 5.2 meq/L 3.6-5.5 379) BLOOD GAS, [id number] 14:41:00 Test Item Value Reference Range Interpretation [...] code = 1819) 60.0 % SODIUM NA-STAT [id number] 14:41:00 Test Item Value Reference Range Interpretation Comments SODIUM (BEAKER) (test code = 381) 134 meq/L 135-148 L GLUCOSE-STAT [id number] 14:41:00 Test Item Value Reference Range Interpretation Comments GLUCOSE RANDOM (BEAKER) (test code 195 mg/dL 70-110 H = 652) HGB/HCT (H&H) - STAT [id number] 14:41:00 Test Item Value Reference Range Interpretation Comments HEMOGLOBIN (BEAKER) (test code = 8.2 g/dL 13.0-16.8 L 410) HEMATOCRIT (BEAKER) (test code = 24.0 % 40.0-50.0 L 411) BLOOD GAS, [id number] 14:10:00 Test Item Value Reference Range Interpretation [...] (test code = 1819) 60.0 % GLUCOSE-STAT [id number] 14:10:00 Test Item Value Reference Range Interpretation Comments GLUCOSE RANDOM (BEAKER) (test code 177 mg/dL 70-110 H = 652) HGB/HCT (H&H) - STAT [id number] 14:10:00 Test Item Value Reference Range Interpretation Comments HEMOGLOBIN (BEAKER) (test code = 8.5 g/dL 13.0-16.8 L 410) HEMATOCRIT (BEAKER) (test code = 25.0 % 40.0-50.0 L 411) SODIUM NA-STAT [id number] 14:09:00 Test Item Value Reference Range Interpretation Comments SODIUM (BEAKER) (test code = 381) 136 meq/L 135-148 POTASSIUM-STAT [id number] 14:09:00 Test Item Value Reference Range Interpretation Comments POTASSIUM (BEAKER) (test code = 5.0 meq/L 3.6-5.5 379) SODIUM NA-STAT [id number] 13:39:00 Test Item Value Reference Range Interpretation Comments SODIUM (BEAKER) (test code = 381) 136 meq/L 135-148 POTASSIUM-STAT [id number] 13:39:00 Test Item Value Reference Range Interpretation Comments POTASSIUM (BEAKER) (test code = 5.0 meq/L 3.6-5.5 379) BLOOD GAS, [id number] 13:39:00 Test Item Value Reference Range Interpretation [...] (test code = 1819) 60.0 % GLUCOSE-STAT [id number] 13:39:00 Test Item Value Reference Range Interpretation Comments GLUCOSE RANDOM (BEAKER) (test code 179 mg/dL 70-110 H = 652) HGB/HCT (H&H) - STAT [id number] 13:39:00 Test Item Value Reference Range Interpretation Comments HEMOGLOBIN (BEAKER) (test code = 8.1 g/dL 13.0-16.8 L 410) HEMATOCRIT (BEAKER) (test code = 24.0 % 40.0-50.0 L 411) CALCIUM, [id number] 12:31:00 Test Item Value Reference Range Interpretation Comments CALCIUM IONIZED (BEAKER) (test 1.09 mmol/L 1.12-1.27 L code = 698) PH, BLOOD (BEAKER) (test code = 7.45 1810) GLUCOSE-STAT [id number] 12:30:00 Test Item Value Reference Range Interpretation Comments GLUCOSE RANDOM (BEAKER) (test code = 93 mg/dL 70-110 652) SODIUM NA-STAT [id number] 12:30:00 Test Item Value Reference Range Interpretation Comments SODIUM (BEAKER) (test code = 381) 140 meq/L 135-148 POTASSIUM-STAT [id number] 12:30:00 Test Item Value Reference Range Interpretation Comments POTASSIUM (BEAKER) (test code = 3.9 meq/L 3.6-5.5 379) BLOOD GAS, [id number] 12:30:00 Test Item Value Reference Range Interpretation [...] 1819) 100.0 % HGB/HCT (H&H) - STAT [id number] 12:30:00 Test Item Value Reference Range Interpretation Comments HEMOGLOBIN (BEAKER) (test code = 9.3 g/dL 13.0-16.8 L 410) HEMATOCRIT (BEAKER) (test code = 27.0 % 40.0-50.0 L 411) HEMOGLOBIN [id number] 10:02:00 Test Item Value Reference Range Interpretation Comments HEMOGLOBIN A1C (BEAKER) (test code = 4.4 % 4.3-6.1 368) POCT-GLUCOSE [id number] 09:52:00 Test Item Value Reference Range Interpretation Comments POC-GLUCOSE METER 115 mg/dL 70-[address] [facility] 6720 (BEAKER) (test code = [place] 1538) [id number] PROTHROMBIN [id number] 02:41:00 Test Item Value Reference Range Interpretation Comments PROTIME (BEAKER) (test code = 14.9 seconds 11.7-14.7 H 759) INR (BEAKER) (test code = 370) 1.2 <=5.9 RECOMMENDED COUMADIN/WARFARIN INR THERAPY RANGESSTANDARD DOSE: 2.0 - 3.0 Includes: PROPHYLAXIS forvenous thrombosis, systemic embolization; TREATMENT for venous thrombosis and/or pulmonary embolus.HIGH RISK: Target INR is 2.5-3.5 for patients with mechanical heart valves.BASIC METABOLIC [id number] 00:29:00 Test Item Value Reference Range Interpretation [...] S NOT APPLICABLE FOR DIALYSIS PATIEN TS. [id number] 00:22:00 Test Item Value Reference Range Interpretation Comments MAGNESIUM (BEAKER) 2.5 mg/dL 1.6-2.6 Specimen slightly (test code = 627) hemolyzed [id number] 00:14:00 Test Item Value Reference Range Interpretation Comments PARTIAL THROMBOPLASTIN TIME 38.6 seconds 22.5-36.0 H (BEAKER) (test code = 760) CBC W/PLT COUNT & AUTO [id number] 00:07:00 Test Item Value Reference Range Interpretation [...] 0-1 PERCENT (BEAKER) (test code = 2801) [id number] 17:03:00 Test Item Value Reference Range Interpretation Comments THYROID STIMULATING HORMONE 1.30 uIU/mL 0.35-4.94 (BEAKER) (test code = 772) HEPATIC FUNCTION [id number] 16:43:00 Test Item Value Reference Range Interpretation [...] 69 U/L 6-55 H 347) BASIC METABOLIC [id number] 15:47:00 Test Item Value Reference Range Interpretation [...] S NOT APPLICABLE FOR DIALYSIS PATIEN TS. [id number] 14:57:00 Test Item Value Reference Range Interpretation Comments PARTIAL THROMBOPLASTIN TIME 82.9 seconds 22.5-36.0 H (BEAKER) (test code = 760) CBC W/PLT COUNT & AUTO [id number] 14:48:00 Test Item Value Reference Range Interpretation [...] PERCENT (AKER) (test code = 2801) POCT-GLUCOSE [id number] 11:13:00 Test Item Value Reference Range Interpretation Comments POC-GLUCOSE METER 207 mg/dL 70-[address] [facility] [address] ([facility]) (test code = [place] 1538) [id number] POCT-GLUCOSE [id number] 08:08:00 Test Item Value Reference Range Interpretation Comments POC-GLUCOSE METER 124 mg/dL 70-110 H TESTED AT [place] [address] ([facility]) (test code = [place] 1538) [address] [id number] 06:51:00 Test Item Value Reference Range Interpretation Comments PARTIAL THROMBOPLASTIN TIME 54.6 seconds 22.5-36.0 H (AKER) (test code = 760) HEPATITIS B SURFACE [id number] 00:28:00 Test Item Value Reference Range Interpretation Comments HEPATITIS B SURFACE ANTIGEN (2) Nonreactive Nonreactive ([facility]) (test code = 2585) [id number] 00:06:00 Test Item Value Reference Range Interpretation Comments PHOSPHORUS (BEAKER) (test code = 3.2 mg/dL 2.3-4.7 604) [id number] 00:03:00 Test Item Value Reference Range Interpretation Comments PARTIAL THROMBOPLASTIN TIME 36.0 seconds 22.5-36.0 (AKER) (test code = 760) CBC W/PLT COUNT & AUTO [id number] 23:45:00 Test Item Value Reference Range Interpretation Comments WHITE BLOOD CELL COUNT (BEAKER) 5.8 K/ L 3.5-10.5 (test code = 775) RED BLOOD CELL COUNT (BEAKER) 2.99 M/ L 4.63-6.08 L (test code = 761) HEMOGLOBIN (BEAKER) (test code = 9.7 GM/DL 13.7-17.5 L 410) HEMATOCRIT (BEAKER) (test code = 29.3 % 40.1-51.0 L 411) MEAN CORPUSCULAR VOLUME (AKER) 98.0 fL 79.0-92.2 H (test code = [...] PERCENT (BEAKER) (test code = 2801) POCT-GLUCOSE [id number] 17:39:00 Test Item Value Reference Range Interpretation Comments POC-GLUCOSE METER 116 mg/dL 70-[address] [facility] 6720 (BEAKER) (test code = FOSTER BRANDON 1538) [address] [id number] 15:35:00 Test Item Value Reference Range Interpretation Comments THYROID STIMULATING HORMONE 1.39 uIU/mL 0.35-4.94 (BEAKER) (test code = 772) [id number] 15:06:00 Test Item Value Reference Range Interpretation Comments PARTIAL THROMBOPLASTIN TIME 31.0 seconds 22.5-36.0 (JARROD) (test code = 760) Prior to initiating heparinPROTHROMBIN TIME/[id number] 15:05:00 Test Item Value Reference Range Interpretation Comments PROTIME (JARROD) (test code = 14.4 seconds 11.7-14.7 759) INR (JARROD) (test code = 370) 1.1 <=5.9 RECOMMENDED COUMADIN/WARFARIN INR THERAPY RANGESSTANDARD DOSE: 2.0 - 3.0 Includes: PROPHYLAXIS forvenous thrombosis, systemic embolization; TREATMENT for venous thrombosis and/or pulmonary embolus.HIGH RISK: Target INR is 2.5-3.5 for patients with mechanical heart valves.PLATELET [id number] 14:52:00 Test Item Value Reference Range Interpretation Comments PLATELET COUNT (JARROD) (test 109 K/CU MM 150-450 L code = 756) POCT-GLUCOSE [id number] 12:00:00 Test Item Value Reference Range Interpretation Comments POC-GLUCOSE METER 186 mg/dL 70-[address] [facility] 6720 (JARROD) (test code = FOSTER Paul [facility] 1538) [address] RAD, CHEST, 1 VIEW, NON [id number] 11:43:00Reason for exam:->SOB, known severe MRShould this be performed at the bedside?->YesFINAL REPORT Chest one view AP 01/08/2018 11:42 AM CLINICAL INDICATION: SOB, kno wn severe MR COMPARISON: 12/02/2017 IMPRESSION: Cardiomediastinal contours are stable. There is mild pulmonary edema. There are trace bilateral pleural effusions. Signed: Yevgeniy Anderson Verified Date/Time: 01/08/2018 11:43:52 Reading Location: [facility] Reading Room [facility] all signed by: YEVGENIY ANDERSON M.D. on 01/08/2018 11:43 AMRAPID CK-MB 2017-12-02 10:04:00 Test Item Value Reference Range Interpretation Comments RAPID CKMB (JARROD) (test code = 1.5 ng/mL 0.0-4.3 1482) RAPID TROPONIN [id number] 10:04:00 Test Item Value Reference Range Interpretation Comments RAPID TROPONIN I (BEAKER) (test code < ng/mL <0.05 = 1483) RAD, CHEST, 2 [id number] 10:00:00Reason for exam:->Chest PainFINAL REPORT Chest two views Discussion: Heart size upper limits of normal. Bilateral interstitial edema with small bilateral effusions. No pneumothorax. Bones and soft tissues unremarkable. Signed: Rhea Colindreseport Verified Date/Time: 12/02/2017 10:00:39 Reading Location:[facility] Reading Room B-TYPE NATRIURETIC FACTOR (BNP)2017-12-02 09:56:00 Test Item Value Reference Range Interpretation Comments B-TYPE NATRIURETIC PEPTIDE 1990 pg/mL 0-100 H (BEAKER) (test code = 700) BASIC METABOLIC [id number] 09:52:00 Test Item Value Reference Range Interpretation [...] S NOT APPLICABLE FOR DIALYSIS PATIEN TS. [id number] 09:51:00 Test Item Value Reference Range Interpretation Comments MAGNESIUM (BEAKER) (test code = 1.7 mg/dL 1.5-3.0 627) CBC W/PLT COUNT & AUTO [id number] 09:50:00 Test Item Value Reference Range Interpretation [...] (BEAKER) (test code = 417) CD4/CD8 Ratio [id number] 08:04:00 Test Item Value Reference Range Interpretation Comments Absolute CD 4 [place] (test code 188 /uL 359-1519 L = 582177) % CD 4 Pos. Lymph. (test code = 37.6 % 30.8-58.5 N 175961) Abs. CD 8 Suppressor (test code 183 /uL 109-897 N = 109043) % CD 8 Pos. Lymph. (test code = 36.6 % 12.0-35.5 H 315899) CD4/CD8 Ratio (test code = 1.03 0.92-3.72 N 051896) WBC (test code = 995107) 5.0 x10E3/uL 3.4-10.8 N RBC (test code = 963593) 3.00 x10E6/uL 4.14-5.80 L Hemoglobin (test code = 504470) 9.6 g/dL 13.0-17.7 L Hematocrit (test code = 474964) 27.6 % 37.5-51.0 L MCV (test code = 565324) 92 fL 79-97 N MCH (test code = 893395) 32.0 pg 26.6-33.0 N MCHC (test code = 298227) 34.8 g/dL 31.5-35.7 N RDW (test code = 808498) 15.5 % 12.3-15.4 H Platelets (test code = 569556) 113 x10E3/uL 150-379 L Neutrophils (test code = 84 % Not Estab. N 925310) Lymphs (test code = 193756) 9 % Not Estab. N Monocytes (test code = 363885) 6 % Not Estab. N Eos (test code = 769659) 1 % Not Estab. N Basos (test code = 243051) 0 % Not Estab. N Neutrophils (Absolute) (test 4.2 x10E3/uL 1.4-7.0 N code = 651739) Lymphs (Absolute) (test code = 0.5 x10E3/uL 0.7-3.1 L 095662) Monocytes(Absolute) (test code 0.3 x10E3/uL 0.1-0.9 N = 237646) Eos (Absolute) (test code = 0.0 x10E3/uL 0.0-0.4 N 719832) Baso (Absolute) (test code = 0.0 x10E3/uL 0.0-0.2 N 861540) Immature Granulocytes (test 0 % Not Estab. N code = 172818) Immature Grans (Abs) (test code 0.0 x10E3/uL 0.0-0.1 N = 947184) Culture, Blood [id number] 08:42:00Specimen: BloodCollected: 11/19/2017 00:21 Status: Final Last Updated: 11/24/2017 08:42 Culture Result (Final) (Final) No Growth After 5 DaysCulture, Blood [id number] 08:42:00 Specimen: BloodCollected: 11/18/2017 20:30 Status: Final Last Updated: 11/24/2017 08:42 Culture Result (Final) (Final) No Growth After 5 DaysPOC Glucose, [id number] 11:51:00 Test Item Value Reference Range Interpretation Comments POC Glucose (test 148 mg/dL 70-115 H Notify RN or MDIf you code = POCGLUC) consider you r patient critically ill, the Madeline Accu-Chek InformII metershould not be used for Glucose determinations. Draw a venous Glucose and send to the Main Lab for Analysis. CK [id number] 07:42:00 Test Item Value Reference Range Interpretation Comments CK (test code = CK) na U/L 39-308 N CKMB (test code = CKMB) 4.0 ng/mL 0.0-4.9 N CKMB% (test code = CKMBP) 0.0 % 0.0-3.4 N Jii-[id number] 07:39:00 Test Item Value Reference Range Interpretation Comments NT ProBnp (test code = PBNP) >81922 pg/mL 0-124 H Troponin [id number] 07:18:00 Test Item Value Reference Range Interpretation Comments Troponin T (test code = MADHAV) 0.103 ng/mL 0.000-0.090 H Lactate [id number] 07:18:00 Test Item Value Reference Range Interpretation Comments LDH (test code = LDH) 271 U/L 135-225 H POC Glucose, [id number] 06:50:00 Test Item Value Reference Range Interpretation Comments POC Glucose (test 154 mg/dL 70-115 H Notify RN or MDIf you code = POCGLUC) consider you r patient critically ill, the Madeline Accu-Chek InformII metershould not be used for Glucose determinations. Draw a venous Glucose and send to the Main Lab for Analysis. CK [id number] 01:08:00 Test Item Value Reference Range Interpretation Comments CK (test code = CK) na U/L 39-308 N CKMB (test code = CKMB) 3.6 ng/mL 0.0-4.9 N CKMB% (test code = CKMBP) 0.0 % 0.0-3.4 N Troponin [id number] 01:08:00 Test Item Value Reference Range Interpretation Comments Troponin T (test code = MADHAV) 0.106 ng/mL 0.000-0.090 H XR CHEST 1 [id number] 21:02:01CLINICAL INFORMATION: Vascular congestion.Dictation Location: R 16Comparison: 11/18/2017 showed perihilar and lower lobe opacities. Technique: Portable AP 1951 hoursFINDINGS: Monitoring electrodes overlie the chest wall. Cardiomegaly withincreasing central vascular interstitial prominence with bibasilaropacities and effusions. No interval bone changes.IMPRESSION: Changes could indicate worsening cardiac decompensation orfluid overload.POC Glucose, [id number] 20:15:00 Test Item Value Reference Range Interpretation Comments POC Glucose (test 139 mg/dL 70-115 H If you con procurement representative your code = POCGLUC) patient crit ically ill, the Madeline Accu- Chek InformII meters hould not be used for Glu cose determinations. Draw a venous Glucose and send to the Main Lab for Analysis. POC Glucose, [id number] 16:52:00 Test Item Value Reference Range Interpretation Comments POC Glucose (test 123 mg/dL 70-115 H If you con procurement representative your code = POCGLUC) patient crit ically ill, the Madeline Accu- Chek InformII meters hould not be used for Glu cose determinations. Draw a venous Glucose and send to the Main Lab for Analysis. POC Glucose, [id number] 12:04:00 Test Item Value Reference Range Interpretation Comments POC Glucose (test 140 mg/dL 70-115 H If you con procurement representative your code = POCGLUC) patient crit ically ill, the Madeline Accu- Chek InformII meters hould not be used for Glu cose determinations. Draw a venous Glucose and send to the Main Lab for Analysis. POC Glucose, [id number] 08:01:00 Test Item Value Reference Range Interpretation Comments POC Glucose (test 126 mg/dL 70-115 H If you con procurement representative your code = POCGLUC) patient crit ically ill, the Madeline Accu- Chek InformII meters hould not be used for Glu cose determinations. Draw a venous Glucose and send to the Main Lab for Analysis. CK [id number] 06:03:00 Test Item Value Reference Range Interpretation Comments CK (test code = CK) na U/L 39-308 N CKMB (test code = CKMB) 2.8 ng/mL 0.0-4.9 N CKMB% (test code = CKMBP) 0.0 % 0.0-3.4 N Basic Metabolic [id number] 05:51:00 Test Item Value Reference Range Interpretation [...] is not provided , and the patient isAfjune-Amelijah can, multiply by 1.2 12. If sex [...] the National Kidney Foundation,http ://nkd ep.nih.gov Magnesium, [id number] 05:51:00 Test Item Value Reference Range Interpretation Comments Magnesium (test code = MG) 1.9 mg/dL 1.7-2.5 N [id number] 05:51:00 Test Item Value Reference Range Interpretation Comments Phosphorus (test code = PO4) 3.8 mg/dL 2.70-4.50 N [id number] 05:51:00 Test Item Value Reference Range Interpretation Comments NT ProBnp (test code = PBNP) >56543 pg/mL 0-124 H Troponin [id number] 05:51:00 Test Item Value Reference Range Interpretation Comments Troponin T (test code = MADHAV) 0.126 ng/mL 0.000-0.090 H CBC with [id number] 05:34:00 Test Item Value Reference Range Interpretation [...] code = ALYMPH) 0.4 K/cumm 0.5-4.6 L [place] Abs (test code = AMONO) 0.6 K/cumm 0.0-1.2 N Eos Abs (test code = AEOS) 0.13 K/cumm 0.00-0.74 N Baso Abs (test code = ABASO) 0.0 K/cumm 0.00-0.21 N CK [id number] 18:39:00 Test Item Value Reference Range Interpretation Comments CK (test code = CK) HIDE U/L 39-308 N CKMB (test code = CKMB) 3.2 ng/mL 0.0-4.9 N CKMB% (test code = CKMBP) HIDE % 0.0-3.4 N Troponin [id number] 18:39:00 Test Item Value Reference Range Interpretation Comments Troponin T (test code = MADHAV) 0.126 ng/mL 0.000-0.090 H Hep B Surface [id number] 18:39:00 Test Item Value Reference Range Interpretation Comments Hep Bs Ag (test code = HBSAG) Nonreactive Non-Reactive A POC Glucose, [id number] 16:47:00 Test Item Value Reference Range Interpretation Comments POC Glucose (test 143 mg/dL 70-115 H If you con procurement representative your code = POCGLUC) patient crit ically ill, the Madeline Accu- Chek InformII meters hould not be used for Glu cose determinations. Draw a venous Glucose and send to the Main Lab for Analysis. XR CHEST 1 [id number] 08:18:18EXAM: Portable AP chest x-rayLOCATION: R16 INDICATION: CoughCOMPARISON: 11/07/2017FINDINGS:The cardiacsilhouette is stable enlargement. There are increasinginterstitial opacities, most evident in the per ihilar regions and lowerlobes. There is blunting of the costophrenic angles bilaterally. Thereis no discernible pneumothorax.IMPRESSION:Increasing perihilar and bilateral lower lobe opacities compared to theprior exam dated 11/07/2017. Findings may represent pulmonary edema orpneumonia in the appropriate clinical setting.Comprehensive Metabolic [id number] 08:05:00 Test Item Value Reference Range Interpretation [...] the National Kidney Foundation,http ://nkd ep.nih.gov CK [id number] 08:05:00 Test Item Value Reference Range Interpretation Comments CK (test code = CK) 149 U/L 39-308 N Troponin [id number] 08:02:00 Test Item Value Reference Range Interpretation Comments Troponin T (test code = MADHAV) 0.114 ng/mL 0.000-0.090 H [id number]-[id number] 08:02:00 Test Item Value Reference Range Interpretation Comments NT ProBnp (test code = PBNP) >21325 pg/mL 0-124 H CBC with [id number] 07:53:00 Test Item Value Reference Range Interpretation [...] code = ALYMPH) 0.9 K/cumm 0.5-4.6 N [place] Abs (test code = AMONO) 0.4 K/cumm 0.0-1.2 N Eos Abs (test code = AEOS) 0.11 K/cumm 0.00-0.74 N Baso Abs (test code = ABASO) 0.0 K/cumm 0.00-0.21 N XR CHEST 1 [id number] 21:38:09EXAM: CHEST ONE VIEWINDICATION: CoughCOMPARISON: October 06, 2017TECHNIQUE: AP view of the chest.FINDINGS: The cardiomediastinal silhouette is unchanged. Mild congestive changesbilaterally. No pneumothorax or pleural effusion is identified. Theosseous structures are unremarkable.IMPRESSION: Diffuse congestive changes bilaterally.LOCATION: R16US DUPLX EXT VEINS [facility], [id number] 20:09:34AFTER HOURS SERVICE ON: 10/06/2017 8:09 PMRIGHT Lower Extremity Venous Duplex Doppler ExaminationLocation Code Q30Woweuaf: SwellingTechnique: Real-time castillo scale, Doppler spectral analysis [...] Lower Extremity Venous Duplex Doppler ExaminationLocation Code X67Ozyhi ry: SwellingTechnique: Real-time castillo scale, Doppler spectral [...] of DVT in the imaged vessels.Comprehensive Metabolic [id number] 17:40:00 Test Item Value Reference Range Interpretation [...] National Kidney Foundation,http ://nkd ep.nih.gov CBC with [id number] 17:15:00 Test Item Value Reference Range Interpretation [...] code = ALYMPH) 1.3 K/cumm 0.5-4.6 N [place] Abs (test code = AMONO) 0.6 K/cumm 0.0-1.2 N Eos Abs (test code = AEOS) 0.12 K/cumm 0.00-0.74 N Baso Abs (test code = ABASO) 0.0 K/cumm 0.00-0.21 N XR CHEST 1 [id number] 16:56:42CHEST 1 VIEW: [id number]: coughCOMPARISON:Sep 24, 2017FINDINGS:The heart is enlarged. There is engorgement of the central pulmonaryvasculature. There are patchy bibasilar areas of infiltrate oratelectasis with bilateral effusions. No pneumothorax is present. IMPRESSION: 1. Patchy areas of atelectasis or infiltrate in the lung bases withsmall bilateral effusions and vascular congestion most likely secondaryto CHF.Culture, Blood [id number] 14:58:00Specimen: BloodCollected: 09/24/2017 13:05 Status: Final Last Updated: 09/29/2017 14:58 (1) ER Bed 1 Culture Result (Final) (Final) No Growth After 5 DaysCulture, Blood [id number] 14:58:00Specimen: BloodCollected: 09/24/2017 12:50 Status: Final Last Updated: 09/29/2017 14:58 (1) ER Bed 1 Culture Result (Final) (Final) No Growth After 5 DaysPOC Glucose, [id number] 10:54:00 Test Item Value Reference Range Interpretation Comments POC Glucose (test 168 mg/dL 70-115 H If you con procurement representative your code = POCGLUC) patient crit ically ill, the Madeline Accu- Chek InformII meters hould not be used for Glu cose determinations. Draw a venous Glucose and send to the Main Lab for Analysis. POC Glucose, [id number] 07:16:00 Test Item Value Reference Range Interpretation Comments POC Glucose (test 143 mg/dL 70-115 H If you con procurement representative your code = POCGLUC) patient crit ically ill, the Madeline Accu- Chek InformII meters hould not be used for Glu cose determinations. Draw a venous Glucose and send to the Main Lab for Analysis. CBC with [id number] 07:15:00 Test Item Value Reference Range Interpretation [...] code = ALYMPH) 1.3 K/cumm 0.5-4.6 N [place] Abs (test code = AMONO) 0.7 K/cumm 0.0-1.2 N Eos Abs (test code = AEOS) 0.07 K/cumm 0.00-0.74 N Baso Abs (test code = ABASO) 0.0 K/cumm 0.00-0.21 N Magnesium, [id number] 07:03:00 Test Item Value Reference Range Interpretation Comments Magnesium (test code = MG) 2.0 mg/dL 1.7-2.5 N Basic Metabolic [id number] 07:03:00 Test Item Value Reference Range Interpretation [...] National Kidney Foundation,http ://nkd ep.nih.gov POC Glucose, [id number] 21:40:00 Test Item Value Reference Range Interpretation Comments POC Glucose (test 129 mg/dL 70-115 H If you con procurement representative your code = POCGLUC) patient crit ically ill, the Madeline Accu- Chek InformII meters hould not be used for Glu cose determinations. Draw a venous Glucose and send to the Main Lab for Analysis. Hep B Surface [id number] 18:36:00 Test Item Value Reference Range Interpretation Comments Hep Bs Ag (test code = HBSAG) Nonreactive Non-Reactive A POC Glucose, [id number] 10:51:00 Test Item Value Reference Range Interpretation Comments POC Glucose (test 216 mg/dL 70-115 H If you con procurement representative your code = POCGLUC) patient crit ically ill, the Mdaeline Accu- Chek InformII meters hould not be used for Glu cose determinations. Draw a venous Glucose and send to the Main Lab for Analysis. POC Glucose, [id number] 07:57:00 Test Item Value Reference Range Interpretation Comments POC Glucose (test 164 mg/dL 70-115 H If you con procurement representative your code = POCGLUC) patient crit ically ill, the Madeline Accu- Chek InformII meters hould not be used for Glu cose determinations. Draw a venous Glucose and send to the Main Lab for Analysis. POC Glucose, [id number] 19:47:00 Test Item Value Reference Range Interpretation Comments POC Glucose (test 140 mg/dL 70-115 H Notify RN or MDIf you code = POCGLUC) consider you r patient critically ill, the Madeline Accu-Chek InformII metershould not be used for Glucose determinations. Draw a venous Glucose and send to the Main Lab for Analysis. Troponin [id number] 19:36:00 Test Item Value Reference Range Interpretation Comments Troponin T (test code = MADHAV) 0.121 ng/mL 0.000-0.090 H CK [id number] 19:25:00 Test Item Value Reference Range Interpretation [...] by GINO on 09/25 19:24 POC Glucose, [id number] 16:42:00 Test Item Value Reference Range Interpretation Comments POC Glucose (test 123 mg/dL 70-115 H If you con procurement representative your code = POCGLUC) patient crit ically ill, the Madeline Accu- Chek InformII meters hould not be used for Glu cose determinations. Draw a venous Glucose and send to the Main Lab for Analysis. POC Glucose, [id number] 12:09:00 Test Item Value Reference Range Interpretation Comments POC Glucose (test 141 mg/dL 70-115 H If you con procurement representative your code = POCGLUC) patient crit ically ill, the Madeline Accu- Chek InformII meters hould not be used for Glu cose determinations. Draw a venous Glucose and send to the Main Lab for Analysis. Hep B Surface [id number] 07:59:00 Test Item Value Reference Range Interpretation Comments Hep Bs Ag (test code = HBSAG) Nonreactive Non-Reactive A CK [id number] 07:43:00 Test Item Value Reference Range Interpretation Comments CK (test code = CK) n/a U/L 39-308 N CKMB (test code = CKMB) 2.4 ng/mL 0.0-4.9 N CKMB% (test code = CKMBP) 0.0 % 0.0-3.4 N Troponin [id number] 07:38:00 Test Item Value Reference Range Interpretation Comments Troponin T (test code = MADHAV) 0.134 ng/mL 0.000-0.090 H Thyroid Stimulating Hormone (TSH)2017-09-25 07:38:00 Test Item Value Reference Range Interpretation Comments TSH (test code = TSH) 1.10 mIU/mL 0.270-4.200 N [id number] 07:38:00 Test Item Value Reference Range Interpretation Comments Phosphorus (test code = PO4) 3.4 mg/dL 2.70-4.50 N Comprehensive Metabolic [id number] 07:38:00 Test Item Value Reference Range Interpretation [...] the National Kidney Foundation,http ://nkd ep.nih.gov Magnesium, [id number] 07:38:00 Test Item Value Reference Range Interpretation Comments Magnesium (test code = MG) 2.0 mg/dL 1.7-2.5 N CK [id number] 07:31:00 Test Item Value Reference Range Interpretation Comments CK (test code = CK) 159 U/L 39-308 N Lipid [id number] 07:31:00 Test Item Value Reference Range Interpretation Comments Cholesterol (test 118 mg/dL 0-200 N code = CHOL) Triglycerides (test 170 mg/dL 9-200 N code = TRIG) HDL (test code = 49 mg/dL 40-60 N HDL) Chol/HDL (test code 2.4 Ratio 0.0-5.0 N = CHOLPHDL) LDL, Calculated 35 0-130 N (NOTE)RISK O F HEART (test code = LDLC) DISEASEPu blished by [place] Heart AssociationAnal yte Optim al Boderline Increased RiskC HOL <200 200-239 >240TRI G <150 150-199 >200HDL Male: >60 <40HDL Female: >60 <50 LDL < 100 130-15 9 >160 LDL NEAR OPTIMAL IS 100- 129 VLDL (test code = 34 mg/dL 5-40 N VLDL) LDL/HDL (test code = 1 LDLPHDL) Glycosylated [id number] 07:24:00 Test Item Value Reference Range Interpretation Comments HBA1c (test code = HBA1C) 5.0 % 4.8-5.9 N CBC with [id number] 07:20:00 Test Item Value Reference Range Interpretation [...] code = ALYMPH) 0.8 K/cumm 0.5-4.6 N [place] Abs (test code = AMONO) 0.5 K/cumm 0.0-1.2 N Eos Abs (test code = AEOS) 0.10 K/cumm 0.00-0.74 N Baso Abs (test code = ABASO) 0.0 K/cumm 0.00-0.21 N POC Glucose, [id number] 07:03:00 Test Item Value Reference Range Interpretation Comments POC Glucose (test 147 mg/dL 70-115 H If you con procurement representative your code = POCGLUC) patient crit ically ill, the Madeline Accu- Chek InformII meters hould not be used for Glu cose determinations. Draw a venous Glucose and send to the Main Lab for Analysis. POC Glucose, [id number] 22:05:00 Test Item Value Reference Range Interpretation Comments POC Glucose (test 134 mg/dL 70-115 H If you con procurement representative your code = POCGLUC) patient crit ically ill, the [place]eline Accu- Chek InformII meters hould not be used for Glu cose determinations. Draw a venous Glucose and send to the Main Lab for Analysis. Blood Gas+Lytes+Glu+Ca+Hgb+Hct+[id number] 18:31:00 Test Item Value Reference Range Interpretation [...] (test code = alokrblvverqnscrit COMMENT) liz Pierre@ [id number]/23figrrt Puncture Site (test code = Radial. R PUNSITE) Drawing Tech ID (test code giafnranco fi = DRAWTECH) iPAP (test code = IPAP) 0 cmH2O Respiratory Rate (test code 0 = RESP RATE) Lactic Acid, Blood Gas 0.4 mmol/L (test code = BGLA) CT CHEST W/O [id number] 16:48:03CT CHEST W/O CONTRASTLOCATION CODE: R16 HISTORY: [...] bilateral axillary, prevascular, andparatracheal lymph nodes.Influenza B [id number] 14:36:00Specimen: NasalCollected: 09/24/2017 14:04 Status: Final Last [...] Culture of negative samples is recommended.Influenza A [id number] 14:34:00Specimen: NasalCollected: 09/24/2017 14:04 Status: Final Last [...] Culture of negative samples is recommended.Comprehensive Metabolic [id number] 13:54:00 Test Item Value Reference Range Interpretation [...] the National Kidney Foundation,http ://nkd ep.nih.gov Troponin [id number] 13:54:00 Test Item Value Reference Range Interpretation Comments Troponin T (test code = MADHAV) 0.124 ng/mL 0.000-0.090 H Whj-[id number] 13:54:00 Test Item Value Reference Range Interpretation Comments NT ProBnp (test code = PBNP) >93657 pg/mL 0-124 H CK [id number] 13:54:00 Test Item Value Reference Range Interpretation Comments CK (test code = CK) 222 U/L 39-308 N CKMB (test code = CKMB) 3.1 ng/mL 0.0-4.9 N CKMB% (test code = CKMBP) 1.4 % 0.0-3.4 N CK [id number] 13:54:00 Test Item Value Reference Range Interpretation Comments CK (test code = CK) 222 U/L 39-308 N Partial Thromboplastin [id number] 13:43:00 Test Item Value Reference Range Interpretation Comments aPTT (test code = PTT) 35.70 seconds 24.39-37.25 N Prothrombin [id number] 13:43:00 Test Item Value Reference Range Interpretation Comments PT (test code = PT) 11.30 seconds 9.78-13.35 N INR (test code = INR) 0.99 Ratio 0.6-1.2 N Lactic Acid [id number] 13:41:00 Test Item Value Reference Range Interpretation Comments Lactic Acid, Bld (test code = LAC) 1.3 mmol/L 0.5-1.9 N CBC with [id number] 13:32:00 Test Item Value Reference Range Interpretation [...] code = ALYMPH) 1.2 K/cumm 0.5-4.6 N [place] Abs (test code = AMONO) 0.6 K/cumm 0.0-1.2 N Eos Abs (test code = AEOS) 0.23 K/cumm 0.00-0.74 N Baso Abs (test code = ABASO) 0.0 K/cumm 0.00-0.21 N XR CHEST 1 [id number] 12:50:14XR CHEST 1 VIEWLOCATION: [id number]: None.INDICATION: CoughDISCUSSION:A single portable chest radiograph was submitted for interpretation.Lines/tubes: None.There is central pulmonary vascular congestion with bibasilar opacity,right greater than left.Both costophrenic angles are blunted, right greater than left.The cardiac silhouette is enlarged. There are no definite acute osseous abnormalities.IMPRESSION:1. Central pulmonary vascular congestion with bibasilar opacity, rightgreater than left.2. Suspected small bilateral pleural effusions, right greater thanleft.3. Enlarged cardiac silhouette.T-helper cells (CD4) [id number] 09:09:50 Test Item Value Reference Range Interpretation Comments T-helper cells (CD4) count (test code 602 uL = 19235-8) [facility], serum, by PCR, [id number] 09:09:49 Test Item Value Reference Range Interpretation Comments HIV-1RNA, serum, by PCR, quantitative 20 /mL (test code = 13463) [facility]
[2021-08-09 10:52] LABS: Absolute Lymphocytes (CBC) 0.5 K/uL (0.7-4.9); Basophils % 5.5 % (0-1.3); Lymphocytes % 11.1 % (15.3-44.8); MPV 6.9 fL (7.6-11.3); RBC Red Blood Cell Count 3.23 M/uL (4.33-5.43)
[2021-08-09 11:23] LABS: ALT/SGPT 16 U/L (12-78); AST/SGOT 19 U/L (15-37); Albumin 3.1 g/dL (3.4-5.0); Alkaline Phosphatase 53 U/L (45-117); BUN Blood Urea Nitrogen 25 mg/dL (7-18); Bicarbonate 27 mmol/L (21-32); Bilirubin Direct 0.3 mg/dL (0-0.2); Bilirubin Total 0.9 mg/dL (0.2-1.0); Glucose Level 102 mg/dL (74-106); Lipase 150 U/L (73-393); Potassium 3.7 mmol/L (3.5-5.1); Protein, Total 7.4 g/dL (6.4-8.2); Sodium Level 136 mmol/L (136-145); Troponin (Emerg Dept Use Only) < 0.02 ng/mL (0.0-0.045)
--- NOTE | 2021-08-09 11:45 | ER ---
Nurse's Notes [facility] Name: Salvatore Goldman Age: 66 yrs Sex: Male : 1955 Arrival Date: 08/09/2021 Time: 10:23 Bed 5 Private MD: Diagnosis: Supraventricular tachycardia-resolved;Nausea with vomiting, unspecified Presentation: 08/09 10:28 Chief complaint: Patient states: was sitting at home , felt his heart pounding, has hx iw of SVT, EMS reports HR was 175 on scene, had him vagal down, now 92 SR, also is nauseated. Coronavirus screen: At this time, the client does not indicate any symptoms associated with coronavirus-19. Ebola Screen: Patient negative for fever greater than or equal to 101.5 degrees Fahrenheit, and additional compatible Ebola Virus Disease symptoms Patient denies exposure to infectious person. Patient denies travel to an Ebola-affected area in the 21 days before illness onset. No symptoms or risks identified at this time. Initial Sepsis Screen: Does the patient meet any 2 criteria? No. Patient's initial sepsis screen is negative. Does the patient have a suspected source of infection? No. Patient's initial sepsis screen is negative. Risk Assessment: Do you want to hurt yourself or someone else? Patient reports no desire to harm self or others. Onset of symptoms was August 09, 2021. 10:28 Method Of Arrival: EMS: [facility] iw 10:28 Acuity: NARDA 3 iw Triage Assessment: 10:46 General: Appears uncomfortable, Behavior is cooperative. Pain: Denies pain. sv1 Historical: - Allergies: 10:52 Vitamin D-3 with Aloe; sv1 - Home Meds: 10:52 metoprolol tartrate 25 mg Oral tab 1 tab once daily [Active]; benzonatate 100 mg oral sv1 cap 1 cap 3 times per day [Active]; calcium acetate 667 mg oral tab 6 6 TABS DAILY daily for renal osteodystrophy with hyperphosphatemia [Active]; Vitamin D-3 with Aloe 5000 iu oral 5000 iu WEEKLY for vitamin deficiency prevention [Active]; Kaletra 200-50 mg oral tab 2 tabs 2 times per day for prevention of HIV infection after exposure [Active]; aspirin 81 mg Oral tab 81 mg daily for myocardial infarction prevention [Active]; Isentress 400 mg oral tab 1 tab 2 times per day for prevention of HIV infection after exposure [Active]; 11:11 atorvastatin 20 mg oral tab 1 tab once daily for atherosclerotic cardiovascular disease sv1 [Active]; Daija-Kodak 0.8 mg oral tab 1 TAB daily for vitamin deficiency prevention [Active]; warfarin 10 mg Oral tab 2 TABS Saturday AND SATURDAY for deep vein thrombosis prevention [Active]; warfarin 5 mg Oral tab 1 tab saturday and for deep vein thrombosis prevention [Active]; lamivudine 10 mg/mL oral soln 2.5 mL once daily for prevention of HIV infection after exposure [Active]; 11:22 atropine 0.01 % Opht dpem 1 drop daily for AIDS/HIV [Active]; sv1 - PMHx: 10:30 Cirrhosis; Diabetes - NIDDM; Dialysis; heart valve; Hepatitis; HIV; Hyperlipidemia; iw Karposi Sarcoma (left leg); Hypertensive disorder; kidney failure; L arm HD access; - Immunization history:: Adult Immunizations up to date. - Social history:: Smoking status: Patient denies any tobacco usage or history of. Patient/guardian denies using. Screenin:48 Abuse screen: none. sv1 10:49 Nutritional screening: No deficits noted. Tuberculosis screening: No symptoms or risk sv1 factors identified. Fall Risk Secondary diagnosis (15 points) impaired mobility. Assessment: 10:40 General: Chief complaint of rapid heart rate and palpitations since 1 hour prior to sv1 arrival.. Current heart rate is in the 90's rare pvc noted. No distress noted Respiratory rate 18 021. Sats in the mid 90's. Labs drawn and sent. . Vital Signs: 10:36 BP 139 / 86; Pulse 95; Resp 17; Pulse Ox 100% on R/A; tw2 10:49 Temp 97.9(TE); tw2 11:45 BP 149 / 91; Pulse 94; Resp 19; Pulse Ox 96% on R/A; tw2 ED Course: 10:23 Patient arrived in ED. iw 10:26 Devang Ball, LAURYN is Primary Nurse. sv1 10:30 Triage completed. iw 10:31 Felipa Brown FNP-C is PHCP. kb 10:31 Brennan Nicole MD is Attending Physician. kb 10:46 Arm band placed on left wrist. sv1 10:48 No apparent distress. sv1 10:48 Patient has correct armband on for positive identification. Bed in low position. sv1 10:48 No provider procedures requiring assistance completed. sv1 10:51 Maintain EMS IV. Good blood return noted. Site clean \T\ dry. Gauge \T\ site: 22 LEFT HAND. sv 1 11:55 IV discontinued, intact, bleeding controlled, No redness/swelling at site. Pressure tw2 dressing applied. Administered Medications: 10:30 Drug: Zofran (Ondansetron) 4 mg Route: IVP; Site: right hand; sv1 11:28 Follow up: Response: No adverse reaction; Nausea is decreased sv1 Outcome: 11:44 Discharge ordered by . kb 11:55 Discharged to home via wheelchair. tw2 11:55 Condition: stable 11:55 Discharge instructions given to patient, Instructed on discharge instructions, follow up and referral plans. medication usage, Demonstrated understanding of instructions, follow-up care, medications, Prescriptions given X 1. 11:56 Patient left the ED. tw2 Signatures: Felipa Brown, SOCK AND STOCKING IRONER-C SOCK AND STOCKING IRONER-CkGela Avery, RN RN iw Maryam Kim RN RN tw2 Devang Ball, LAURYN RN sv1 Corrections: (The following items were deleted from the chart) 11:26 10:31 Allergies: No Known Allergies; sv1
--- NOTE | 2021-08-09 11:45 | EDPHYS ---
Physician Documentation [facility] Name: Salvatore Goldman Age: 66 yrs Sex: Male : 1955 Arrival Date: 08/09/2021 Time: 10:23 Bed 5 Private MD: ED Physician Brennan Nicole HPI: 08/09 11:41 This 66 yrs old Black Male presents to ER via EMS with complaints of Palpitations. kb 11:41 The patient presents with a history of heart racing. Context: The symptoms occur at kb rest. Onset: The symptoms/episode began/occurred just prior to arrival. Duration: The patient or guardian reports a single episode, that is now resolved. Modifying factors: The symptoms are aggravated by nothing. The symptoms are alleviated by nothing. Associated signs and symptoms: Pertinent positives: nausea, vomiting, Pertinent negatives: chest pain, fever. Severity of symptoms: At their worst the symptoms were moderate in the emergency department the symptoms have resolved. The patient has experienced similar episodes in the past. The patient has not recently seen a physician. Pt reports he was eating and felt like his heart was beating fast so he called 911. EMS reports pt was in SVT upon their arrival. Pt had a vagal response to IV insertion and converted back to NSR. Pt reports he has had some nausea and vomiting for quite some time as well. . Historical: - Allergies: 10:52 Vitamin D-3 with Aloe; sv1 - Home Meds: 10:52 metoprolol tartrate 25 mg Oral tab 1 tab once daily [Active]; benzonatate 100 mg oral sv1 cap 1 cap 3 times per day [Active]; calcium acetate 667 mg oral tab 6 6 TABS DAILY daily for renal osteodystrophy with hyperphosphatemia [Active]; Vitamin D-3 with Aloe 5000 iu oral 5000 iu WEEKLY for vitamin deficiency prevention [Active]; Kaletra 200-50 mg oral tab 2 tabs 2 times per day for prevention of HIV infection after exposure [Active]; aspirin 81 mg Oral tab 81 mg daily for myocardial infarction prevention [Active]; Isentress 400 mg oral tab 1 tab 2 times per day for prevention of HIV infection after exposure [Active]; 11:11 atorvastatin 20 mg oral tab 1 tab once daily for atherosclerotic cardiovascular disease sv1 [Active]; Daija-Kodak 0.8 mg oral tab 1 TAB daily for vitamin deficiency prevention [Active]; warfarin 10 mg Oral tab 2 TABS Saturday AND SATURDAY for deep vein thrombosis prevention [Active]; warfarin 5 mg Oral tab 1 tab saturday and for deep vein thrombosis prevention [Active]; lamivudine 10 mg/mL oral soln 2.5 mL once daily for prevention of HIV infection after exposure [Active]; 11:22 atropine 0.01 % Opht dpem 1 drop daily for AIDS/HIV [Active]; sv1 - PMHx: 10:30 Cirrhosis; Diabetes - NIDDM; Dialysis; heart valve; Hepatitis; HIV; Hyperlipidemia; iw Karposi Sarcoma (left leg); Hypertensive disorder; kidney failure; L arm HD access; - Immunization history:: Adult Immunizations up to date. - Social history:: Smoking status: Patient denies any tobacco usage or history of. Patient/guardian denies using. ROS: 11:41 Constitutional: Negative for fever, chills, and weight loss. kb 11:41 Cardiovascular: Positive for palpitations, Negative for chest pain. 11:41 Abdomen/GI: Positive for nausea and vomiting, Negative for abdominal pain. 11:41 All other systems are negative. Exam: 11:41 Constitutional: This is a well developed, well nourished patient who is awake, alert, kb and in no acute distress. Head/Face: Normocephalic, atraumatic. ENT: Moist Mucous membranes Chest/axilla: Normal chest wall appearance and motion. Cardiovascular: Regular rate and rhythm with a normal S1 and S2. No gallops, murmurs, or rubs. No pulse deficits. Respiratory: Respirations even and unlabored. No increased work of breathing. Talking in full sentences Abdomen/GI: Soft, non-tender. No distention Skin: Warm, dry with normal turgor. Normal color. MS/ Extremity: Pulses equal, no cyanosis. Neurovascular intact. Full, normal range of motion. Neuro: Awake and alert, GCS 15, oriented to person, place, time, and situation. Moves all extremities. Normal gait. Psych: Awake, alert, with orientation to person, place and time. Behavior, mood, and affect are within normal limits. Vital Signs: 10:36 BP 139 / 86; Pulse 95; Resp 17; Pulse Ox 100% on R/A; tw2 10:49 Temp 97.9(TE); tw2 11:45 BP 149 / 91; Pulse 94; Resp 19; Pulse Ox 96% on R/A; tw2 MDM: 10:35 Patient medically screened. kb 11:40 Data reviewed: vital signs, nurses notes. Data interpreted: Pulse oximetry: on room air kb is 100 %. Interpretation: normal. Counseling: I had a detailed discussion with the patient and/or guardian regarding: the historical points, exam findings, and any diagnostic results supporting the discharge/admit diagnosis, lab results, the need for outpatient follow up, a family practitioner, to return to the emergency department if symptoms worsen or persist or if there are any questions or concerns that arise at home. ED course: Pt has been NSR since arrival. Labs wnl. Will discharge home to follow up with cardiology. 08/09 10:35 Order name: Basic Metabolic Panel; Complete Time: 11:26 kb 08/09 10:35 Order name: CBC with Diff kb 08/09 10:35 Order name: Hepatic Function; Complete Time: 11:26 kb 08/09 10:35 Order name: Lipase; Complete Time: 11:26 kb 08/09 10:35 Order name: Troponin (emerg Dept Use Only); Complete Time: 11:26 kb 08/09 10:56 Order name: Manual Differential EDMS 08/09 10:35 Order name: IV Saline Lock; Complete Time: 10:45 kb 08/09 10:35 Order name: Labs collected and sent; Complete Time: 10:45 kb 08/09 10:35 Order name: EKG; Complete Time: 10:36 kb 08/09 10:35 Order name: EKG - Nurse/Tech; Complete Time: 10:55 kb Administered Medications: 10:30 Drug: Zofran (Ondansetron) 4 mg Route: IVP; Site: right hand; sv1 11:28 Follow up: Response: No adverse reaction; Nausea is decreased sv1 Disposition: 22:39 Co-signature as Attending Physician, Brennan Nicole MD I agree with the assessment and sp3 plan of care. Disposition Summary: 08/09/21 11:44 Discharge Ordered Location: Home kb Condition: Stable kb Diagnosis - Supraventricular tachycardia - resolved kb - Nausea with vomiting, unspecified kb Followup: kb - With: Emergency Department - When: As needed - Reason: Worsening of condition Followup: kb - With: Private Physician - When: 2 - 3 days - Reason: Recheck today's complaints, Continuance of care, Re-evaluation by your physician Discharge Instructions: - Discharge Summary Sheet kb - Supraventricular Tachycardia, Adult, [id number] kb - Nausea and Vomiting, Adult, [id number] kb Forms: - Medication Reconciliation Form kb - Thank You Letter kb - Antibiotic Education kb - Prescription Opioid Use kb Prescriptions: - Zofran 4 mg Oral Tablet - take 1 tablet by ORAL route every 6 hours As needed; 20 tablet; Refills: 0, kb Product Selection Permitted Signatures: Dispatcher [employer] EDMS Felipa Brown, GRADER TENDER-C GRADER TENDER-Gela Gilmore, RN RN iw Brennan Nicole MD MD sp3 Devang Ball RN RN sv1 Corrections: (The following items were deleted from the chart) 11:26 10:31 Allergies: No Known Allergies; sv1
[2021-08-09 12:04] VITALS: TEMP 97.9
[2021-08-09 12:05] VITALS: BP 149/91; O2SAT 96
[2021-08-09 12:16] LABS: Blood Morphology Comment NOT SEEN (NOT SEEN); Platelet Estimate DECR
== END 2021-08-09 11:56 | disposition home or self-care (01) ==
LOC: ER 10:20
DX: R00.2 Palpitations (principal); R11.2 Nausea with vomiting, unspecified; E11.22 Type 2 diabetes mellitus with diabetic chronic kidney disease; N18.6 End stage renal disease; Z99.2 Dependence on renal dialysis; B20 Human immunodeficiency virus [HIV] disease; C46.0 Kaposi's sarcoma of skin; Z79.01 Long term (current) use of anticoagulants; Z79.82 Long term (current) use of aspirin
CPT/HCPCS: 93005; 85025; 80048; 36415; 80076; 84484; 83690; 96374; 99283; J2405

== ENCOUNTER 2021-08-10 11:11 | Emergency (ER) | payer OTHER ==
--- OUTSIDE RECORDS SUMMARY | 2021-08-10 11:39 | XMS REPORT | Continuity of Care Document ---
:1955 Author Organization [facility] t Address [address] [place] [address] Care Team Providers Name Role Phone RADHA ROSALES Primary Care Physician Unavailable MELVIN SHER Attending Clinician Unavailable DELANEY OCAMPO Attending Clinician Unavailable BOBBY Attending Clinician Unavailable SOBEIDA BARRY Attending Clinician Unavailable Xavier Alexander Attending Clinician [phone] Javed Attending Clinician Unavailable Reno MAYA Attending [...] Clinician Unavailable BHAVNA GERBER Attending Clinician Unavailable KZA TURPIN Attending Clinician Unavailable EDENILSON ANTONIO Attending Clinician Unavailable Joy Attending Clinician [phone] Varun Attending Clinician [phone] Yoav Attending Clinician Unavailable Xavier HOLLOWAY Attending [...] Admitting Clinician Unavail able Xavier Alexander Unavailable [phone] Varun Unavailable [phone] Payers Payer Name Policy Type Policy Number Effective Date Expiration Date S prabhjot MEDICARE A B [id number] 2010 00:00:00 MEDICARE PART A & [id number] 2010 B 00:00:00 MEDICARE PART A [id number] 2010 \\T\\ B 00:00:00 CDC REVIEW [id number] 2020 00:00:00 Problems Condition Condition Condition Status Onset Resolution Last Treating Co mments Source Name Details Category Date Date Treatment Clinician Date Vitreous Condition Active 2020-092021-08-02 Joel Alexander hemorrhage 2- 11:11:33 Ramu Cortez mmuni , right 00:00: ty 00 Health ESRD (end Condition Active 2020-092021-08-02 Joel Alexander stage 2- 11:11:33 [facility]u [place] Commun i renal 00:00: ty disease) 00 Health HIV Condition Active 2017-12-02 Angela Alexander infection 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 Ramu [place] Com mary 00:00: ty 00 Health Presbyopia Condition Active 2017-12-02 Joel Bond - OU 12-02 15:13:40 Mo Communi 00:00: ty 00 Health Hyperopia Condition Active 2017-12-02 Joel Bond - OU 12-02 15:13:40 Mo Communi 00:00: ty 00 Health 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 12-02 15:13:40 Mo Comm uni m, 00:00: ty bilateral 00 Health Hypertensi Condition Active 2017-12-02 Joel Alexander on 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 [facility]u [place] Commun i 00:00: ty 00 Health Encounter Condition Active 2017-12-02 Joel Alexander for 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 Ramu Reyes i screening 00:00: ty for eye 00 Health and ear disorders Hypertensi Condition Active 2017-12-02 Joel Alexander ve 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 Ramu S [facility] i retinopath 00:00: ty y, 00 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, 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 Ramu Park [facility]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 00:00: ty 00 Health Allergies, Adverse Reactions, Alerts Allergy Allergy Status Severity Reaction(s) Onset Inactive Treating Comm ents Source Name Type Date Date Clinician CODEINE Allergy Active Med Other [facility] 12-02 00:00: 00 NO KNOWN Drug Active [facility] ALLERGIE Class ity of S [facility] Social History Social Habit Start Date Stop [...] TABS 00 Health ISENTRESS Yes [facility] (RALTEGRAVI 4-02 Communi R POTASSIUM 00:00: ty TABS) TABS [...] pressure, 2021-08-02 10:11:01 76 mm[Hg] [facility] blood pressure, 2021-08-02 10:11:01 144 mm[Hg] [facility] systolic [facility] pulse rate 2021-08-02 10:11:01 90 /min [facility] Health Procedures Procedure Date / Time Performing Clinician Source Performed New Patient Comprehensive 2021-08-02 11:06:20 Ramu Alexander [facility] - [id number] Health 6S2S59I 2020-06-29 00:00:00 ENCPL 6I4V31H 2020-06-29 00:00:00 ENCPL 8R6O78L 2020-06-29 00:00:00 ENCPL 7Q6I52E 2020-06-29 00:00:00 ENCPL 2O6S41S 2020-06-29 00:00:00 ENCPL 6G5L40F 2020-06-29 00:00:00 ENCPL 4C6L87U 2020-06-29 00:00:00 ENCPL 4S5W59P 2020-06-29 00:00:00 ENCPL 8X8S79S 2020-06-29 00:00:00 ENCPL 9K1H78E 2020-06-29 00:00:00 ENCPL 5Y6D97F 2020-06-29 00:00:00 ENCPL 8O4H67U 2020-06-29 00:00:00 ENCPL 7G1W56Q 2020-06-29 00:00:00 ENCPL 2X2V05P 2020-06-29 00:00:00 ENCPL 4F2Z91G 2020-03-05 00:00:00 ENCPL 4U6V28W 2020-03-05 00:00:00 ENCPL 4V9M25N 2020-03-05 00:00:00 ENCPL 2F9W63U 2020-03-05 00:00:00 ENCPL 5Q6C48A 2020-03-05 00:00:00 ENCPL 9B8G23E 2020-03-05 00:00:00 ENCPL 6G1N44C 2020-03-05 00:00:00 ENCPL 7Y2Q21W 2020-03-05 00:00:00 ENCPL 4U3S84J 2020-03-05 00:00:00 ENCPL 2E8N20B 2020-03-05 00:00:00 ENCPL 6N7A54I 2020-03-05 00:00:00 ENCPL 1W1O58H 2020-03-05 00:00:00 ENCPL 5Z4C27O 2020-03-05 00:00:00 ENCPL 7S6L17Y 2020-03-05 00:00:00 ENCPL 9V5F27D 2020-03-05 00:00:00 ENCPL 9N1W34R 2020-03-05 00:00:00 ENCPL 6Z5N07P 2020-03-05 00:00:00 ENCPL 1H7V23I 2020-03-05 00:00:00 ENCPL 2P5M44Y 2020-03-05 00:00:00 ENCPL 6L1J76D 2020-03-05 00:00:00 ENCPL 1D4L36L 2020-03-05 00:00:00 ENCPL 6P4E84C 2019-01-08 00:00:00 ENCPL 2Q6S84C 2019-01-08 00:00:00 ENCPL 9P0N17W 2019-01-08 00:00:00 ENCPL 8T1E16D 2019-01-08 00:00:00 ENCPL Dispensing Visit (UNLIVSTED 2018-03-25 10:14:05 Cason, Yuki [facility] OPHTHALMOLOGICAL Health SERVICE/PROCEDURE) Spherocyl, bif, plano to 2018-03-11 09:52:57 Cason, Yuki [facility] +/- 4.00d sphere, 0.12 to Health 2.00d cyl, per lens Frames, purchases 2018-03-11 09:52:36 [facility], [facility] Spherocyl, bif, plano to 2017-12-03 07:50:03 CasonYuki [facility] +/- 4.00d sphere, 0.12 to Health 2.00d cyl, per lens Frames, purchases 2017-12-03 07:49:43 CasonYuki [facility] Est Patient Comprehensive 2017-12-02 15:27:18 Ramu Alexander [facility] - [address] Health New Patient Intermediate 2017-12-02 14:28:18 Mo Bond [facility] - 14617 Health Encounters Start End Encounter Admission Attending Care Care Encounter Source Date/Time Date/Time Type Type Clinicians Facility Department ID 2020-07-06 Outpatient MELONIE SHANNON ENCCLR [id number] ENCCLR 21:26:21 N MELVIN 2020-02-26 Inpatient ER DAMARIS, [facility] [id number] [facility] 23:10:00 DELANEY 2021-10-23 2021-10-23 [facility] [id number] [place] 00:00:00 00:00:00 [facility] 2021-10-09 2021-10-09 [facility] [id number] [place] 00:00:00 00:00:00 RUST Vinted 2021-09-05 2021-09-05 Outpatient [facility] [id number] [place] 00:00:00 00:00:00 Health 2021-08-21 2021-08-21 Outpatient JOSE MIGUEL BARRY [facility] [id number] [place] 00:00:00 00:00:00 Health 2021-08-07 2021-08-07 Outpatient JOSE MIGUEL BARRY [facility] [id number] [place] 00:00:00 00:00:00 Health 2021-08-02 2021-08-02 Office Ramu Alexander [facility] 1 [id number] [facility] 00:00:00 00:00:00 Visit Rosalba Burt [id number] [facility] 2021-07-31 2021-07-31 Outpatient [facility] [id number] [place] 09:23:59 09:30:08 Health 2021-07-31 2021-07-31 Outpatient JOSE MIGUEL BARRY [facility] [id number] [place] 07:58:35 08:41:53 Health 2021-07-31 2021-07-31 Outpatient FRANCESCO [facility] [id number] [place] 00:00:00 00:00:00 [facility] 2021-07-21 2021-07-21 Outpatient EL MARQUEZ, SLE SLE [id number] SLE 07:11:08 23:59:00 KENDALL 2021-07-21 2021-07-21 Outpatient [facility] [id number] [facility] 00:00:00 23:59:00 Bj Medicin e 2021-07-19 2021-07-19 Outpatient EL [facility] SLE [id number] SLE 07:19:43 07:19:43 2021-07-17 2021-07-17 Outpatient [facility] [id number] [place] 12:03:08 12:07:37 [facility] 2021-07-17 2021-07-17 Outpatient BOBBY [facility] [id number] [place] 09:04:13 11:23:22 [facility] 2021-07-17 2021-07-17 Outpatient JOSE MIGUEL BARRY [facility] [id number] [place] 08:46:08 09:12:52 Health 2021-07-17 2021-07-17 Outpatient SELINA-GABBY [facility] [id number] [place] 00:00:00 00:00:00 JOSE GUILLERMO 2021-07-17 2021-07-17 Outpatient HARRIETT [facility] [id number] [place] 00:00:00 00:00:00 [facility] 2021-07-10 2021-07-10 Outpatient JOSE MIGUEL BARRY [facility] [id number] [place] 00:00:00 00:00:00 [facility] 2021-07-03 2021-07-03 Outpatient JOSE MIGUEL BARRY [facility] [id number] [place] 07:40:01 14:04:21 [facility] 2021-07-03 2021-07-03 Outpatient 3 [facility] [id number] [place] 08:05:52 08:18:57 [facility] 2021-07-03 2021-07-03 Outpatient RAMIROCADE [facility] [id number] [place] 08:05:52 08:18:57 [facility] 2021-07-03 2021-07-03 Outpatient JUDD, [facility] [id number] [place] 00:00:00 00:00:00 [facility] 2021-07-03 2021-07-03 Outpatient HARRIETT [facility] [id number] [place] 00:00:00 00:00:00 [facility] 2021-06-26 2021-06-26 Outpatient JOSE MIGUEL BARRY [facility] [id number] [place] 07:54:30 08:35:16 [facility] 2021-06-12 2021-06-12 Outpatient JOSE MIGUEL BARRY [facility] [id number] [place] 07:56:03 08:33:36 [facility] 2021-05-29 2021-05-29 Outpatient JOSE MIGUEL BARRY [facility] [id number] [place] 08:28:20 09:29:41 [facility] 2021-05-15 2021-05-15 Outpatient JOSE MIGUEL BARRY [facility] [id number] [place] 08:03:38 08:31:36 [facility] 2021-05-01 2021-05-01 Outpatient [facility] [id number] [place] 08:40:51 08:46:27 [facility] 2021-05-01 2021-05-01 Outpatient JOSE MIGUEL BARRY [facility] [id number] [place] 08:04:58 08:32:39 [facility] 2021-05-01 2021-05-01 Outpatient DANIELLE [facility] [id number] [place] 00:00:00 00:00:00 [facility] 2021-04-24 2021-04-24 Outpatient JOSE MIGUEL BARRY [facility] [id number] [place] 08:03:45 08:22:54 [facility] 2021-04-17 2021-04-17 Outpatient JOSE MIGUEL BARRY [facility] [id number] [place] 08:38:35 08:58:58 [facility] 2021-04-10 2021-04-10 Outpatient FRANCESCO [facility] [id number] [place] 00:00:00 00:00:00 [facility] 2021-03-27 2021-03-27 Outpatient DANIELLE [facility] [id number] [place] 12:10:09 12:36:55 [facility] 2021-03-27 2021-03-27 Outpatient JOSE MIGUEL BARRY [facility] [id number] [place] 09:45:17 10:13:09 [facility] 2021-03-07 2021-03-07 Outpatient JOSE MIGUEL BARRY [facility] [id number] [place] 12:04:05 12:23:09 [facility] 2021-02-20 2021-02-20 Outpatient [facility] [id number] [place] 08:34:14 08:39:27 [facility] 2021-02-20 2021-02-20 Outpatient JOSE MIGUEL BARRY [facility] [id number] [place] 08:09:20 08:34:30 [facility] 2021-02-20 2021-02-20 Outpatient HARRIETT [facility] [id number] [place] 00:00:00 00:00:00 [facility] 2021-02-19 2021-02-[address] [facility] [id number] [id number] [place] 00:00:00 00:00:00 KRISTI 590 [facility] 2021-02-06 2021-02-06 Outpatient [facility] [id number] [place] 09:14:10 09:17:27 [facility] 2021-02-06 2021-02-06 Outpatient JOSE MIGUEL BARRY [facility] [id number] [place] 08:49:54 09:14:22 [facility] 2021-02-06 2021-02-06 Outpatient DANIELLE [facility] [id number] [place] 00:00:00 00:00:00 [facility] 2021-02-06 2021-02-06 Outpatient JUDD [facility] [id number] [place] 00:00:00 00:00:00 [facility] 2021-01-23 2021-01-23 Outpatient DANIELLE [facility] [id number] [place] 11:31:24 12:44:32 [facility] 2021-01-23 2021-01-23 Outpatient JOSE MIGUEL BARRY [facility] [id number] [place] 10:14:28 10:36:06 [facility] 2021-01-10 2021-01-10 Outpatient JOSE MIGUEL BARRY [facility] [id number] [place] 07:22:07 11:41:14 [facility] 2021-01-09 2021-01-09 Outpatient [facility] [id number] [place] 09:13:08 09:20:36 [facility] 2021-01-09 2021-01-09 Outpatient LORENZANA, [facility] [id number] [place] 08:19:59 09:12:38 [facility] 2021-01-09 2021-01-09 Outpatient JESSICA, [facility] [id number] [place] 00:00:00 00:00:00 [facility] 2021-01-09 2021-01-09 Outpatient HARRIETT, [facility] [id number] [place] 00:00:00 00:00:00 [facility] 2021-01-04 2021-01-04 Outpatient JOSE MIGUEL BARRY [facility] [id number] [place] 11:36:44 12:43:02 [facility] 2021-01-02 2021-01-02 Outpatient JOSE MIGUEL BARRY [facility] [id number] [place] 07:27:21 12:04:53 [facility] 2021-01-02 2021-01-02 Outpatient JOSE MIGUEL BARRY [facility] [id number] [place] 00:00:00 00:00:00 [facility] 2020-12-30 2020-12-30 Outpatient [facility] [id number] [place] 00:00:00 00:00:00 [facility] 2020-12-19 2020-12-19 Outpatient JOSE MIGUEL BARRY [facility] [id number] [place] 09:18:35 09:59:02 [facility] 2020-12-16 2020-12-16 Outpatient JESSICA, [facility] [id number] [place] 10:25:40 10:35:40 [facility] 2020-12-16 2020-12-16 Outpatient JESSICA, [facility] [id number] [place] 00:00:00 00:00:00 [facility] 2020-11-28 2020-11-28 Emergency X VENITA, [facility] [id number] Univers 22:52:00 22:52:00 JAMIL lopez [facility] 2020-11-24 2020-11-24 Outpatient RUPERTO, [facility] [id number] [place] 13:25:44 13:59:48 [facility] 2020-11-10 2020-11-10 Outpatient RUPERTO, [facility] [id number] [place] 00:00:00 00:00:00 [facility] 2020-11-09 2020-11-09 Outpatient JONNY MON [facility] [id number] [place] 07:51:58 08:14:33 Health 2020-10-27 2020-10-27 Outpatient RUPERTO, [facility] [id number] [place] 12:02:34 12:25:02 [facility] 2020-10-20 2020-10-20 Outpatient RUPERTO, [facility] [id number] [place] 00:00:00 00:00:00 [facility] 2020-10-20 2020-10-20 Outpatient RUPERTO, [facility] [id number] [place] 00:00:00 00:00:00 [facility] 2020-10-06 2020-10-06 Outpatient RUPERTO, [facility] [id number] [place] 11:11:47 11:11:47 [facility] 2020-07-08 2020-07-08 Outpatient CHRISTOS, [facility]Óscar [id number] [facility] 08:37:00 08:37:00 MELVIN [id number] [facility] 2020-05-09 2020-06-28 Inpatient VO, [facility] [id number] [place] 00:00:00 00:00:[address] 2020-04-21 2020-04-21 Emergency ER SLE Emergency [id number] SLE 20:49:00 20:49:00 2019-11-09 2019-11-09 Outpatient [facility] 750 [id number] [facility] 08:51:00 08:51:00 FIDELINA PaulOLA 2019-09-12 2019-09-12 Emergency MUÑOZ, [facility] [id number] [place] 00:00:00 00:00:00 [facility] 2017-12-02 2017-12-02 Office Ramu Alexander [facility] [id number] [place] 00:00:00 00:00:00 Visit Julieta Hamilton [id number] Co [facility] 2017-12-02 2017-12-02 Office Mo Bond [facility] Encoun ter/ [facility] 00:00:00 00:00:00 Visit CasonYuki estrada [id number] [facility] [id number] [facility] 2017-11-18 2017-11-20 Inpatient C AMIE, [facility] [id number] [facility]. 13:43:00 13:54:00 [facility] 2017-11-07 2017-11-07 Emergency E [facility] [id number] [facility]. 20:22:00 20:22:00 [facility] 2017-10-06 2017-10-06 Emergency E ELIANA, [facility] [id number] 14:25:00 14:25:00 [facility] Results Test Description Test Time Test Comments Results Result Comments Source PROTHROMBIN TIME/INR 2021-07-21 07:51:16 Test Item Value Reference Range Interpretation Comme nts PROTIME (BEAKER) (test code 19.0 seconds 11.9-14.2 H = 759) INR (BEAKER) (test code = 1.62 See_Comment [ Automated message] The [employer] system which ge nerated this result transmit jayla reference range: <=5.90. The reference range was not u sed to interpret this result as normal/abnormal . RECOMMENDED COUMADIN/WARFARIN INR THERAPY RANGESSTANDARD DOSE: 2.0 - 3.0 Includes: PROPHYLAXIS forvenous thrombosis, systemic embolization; TREATMENT for venous thrombosis and/or pulmonary embolus.HIGH RISK: Target INR is 2.5-3.5 for patients with mechanical heart valves.SARS-COV2/RT-PCR ([facility]) 2021-07-19 20:41:44 Test Item Value Reference Range Interpretation Comments SARS-COV2/RT-PCR (test code = Negative Negative 5845742) Negative result for this test determines that [...] the Chairez SARS-CoV-2 assay.Fact Sheet for Healthcare Providers:https://www.[employer] Text.chairez/emerita/RT SARS-CoV-2 HCP Fact Sheet 51- 313564.pdfFact Sheet for Healthcare Patients:https://www.[employer] Text.chairez/emerita/RT SARS-CoV-2 Patient Fact Sheet EN 51-984567H6.pdfHIV1 RNA # Plas RADHA DL=20 2021-07-05 16:15:28 Test Item Value Reference Range Interpretation Comments HIV1 RNA [facility] Ql RADHA+probe NOT DETECTED Not detected (test code = 26168-2) This test utilizes FDA cleared ERICH AmpliPrep/ERICH TaqMan HIV-1 test 2.0 from [employer] which allows quantitation of viral loads between [...] patients with HIV-1 infection. CD4+CD8+ Cells NFr Oka9999-09-03 13:12:03 Test Item Value Reference Range Interpretation Comments T-cell CD4 subset 480 cells/uL See_Comment [Automate d message] pnl Bld (test code The lalito handy which = 05321-0) generated this result transmitted ref erence range: 431-1,62 3. The reference range was not used to interpr et this result as normal/abnormal . CD3+CD4+ 1.54 ratio 0.86-2.05 Cells/CD3+CD8+ Cells Bld (test code = 26558-0) CD4+CD8+ Cells NFr 40.0 % 25.0-56.0 Bld (test code = 02494-9) RPR [id number] 14:32:36 Test Item Value Reference Range Interpretation Comments T pallidum Ab Ser Ql Aggl (test NEGATIVE Negative, Equivocal code = 52039-2) Reagin+T pallidum IgG+IgM NEGATIVE Negative SerPl-Imp (test code = 69570-5) T-helper cells (CD4) [id number] 10:30:27 Test Item Value Reference Range Interpretation Comments T-helper cells (CD4) count (test code 512 uL = 18629-2) [facility], by PCR, [id number] 10:30:25 Test Item Value Reference Range Interpretation Comments HIV-1RNA, serum, by PCR, quantitative 20 /mL (test code = 79199) [facility] [id number] 11:26:00 Test Item Value Reference Range Interpretation Comments AG HEPATITIS B SURFACE (test NEGATIVE SCREEN NEGATIVE code = HBSAG) AB HEPATITIS A [id number] 03:08:00 Test Item Value Reference Range Interpretation Comments AB HEPATITIS A IGM (test code = HAVMAB) AB HEPATITIS B [id number] 03:08:00 Test Item Value Reference Range Interpretation Comments AB HEPATITIS B SURFACE 96.5 mIU/mL Immunity>9.9 Sta tus of Immunity (test code = HBSAB) Anti-HBs Level --- I ncons istent with Imm unity 0.0 - 9.9Consis tent with Immunity >9.9 AB HEPATITIS A [id number] 03:08:00 Test Item Value Reference Range Interpretation Comments AB HEPATITIS A IGM Negative Negative Performed At: (test code = HAVMAB) [facility] [address] [place], [place] [id number] lauren Chapman MD Ph:[phone] AB HEPATITIS B [id number] 03:08:00 Test Item Value Reference Range Interpretation Comments AB HEPATITIS B SURFACE 96.5 mIU/mL Immunity>9.9 Sta tus of Immunity (test code = HBSAB) Anti-HBs Level --- I ncons istent with Imm unity 0.0 - 9.9Consis tent with Immunity >9.9 COVID 19 Asymptomatic IH [id number] 09:05:00 Test Item Value Reference Range Interpretation [...] in Respiratory specimen by RADHA with probe [id number] 10:30:29 Test Item Value Reference Range Interpretation Comments SARS-CoV-2 (COVID-19) RNA Not detected Not-Detected [Presence] in Respiratory specimen by RADHA with probe detection (test code = 77601-1) SARS-CoV-2 (COVID-19) RNA [Presence] in Respiratory specimen by RADHA with probe [id number] 18:12:42 Test Item Value Reference Range Interpretation Comments SARS-CoV-2 (COVID-19) RNA Not detected Not-Detected [Presence] in Respiratory specimen by RADHA with probe detection (test code = 45603-0) SARS-CoV-2 (COVID-19) RNA [Presence] in Respiratory specimen by RADHA with probe [id number] 12:55:22 Test Item Value Reference Range Interpretation Comments SARS-CoV-2 (COVID-19) RNA Not detected Not-Detected [Presence] in Respiratory specimen by RADHA with probe detection (test code = 23382-7) SARS-CoV-2 (COVID-19) RNA [Presence] in Respiratory specimen by RADHA with probe [id number] 23:46:30 Test Item Value Reference Range Interpretation Comments SARS-CoV-2 (COVID-19) RNA Not detected Not-Detected [Presence] in Respiratory specimen by RADHA with probe detection (test code = 18550-0) TROPONIN [id number] 23:28:00 Test Item Value Reference Range Interpretation [...] failure, acidosis, acute neurological disease, and persistent tachyarrhythmia.Printing Roller Handler ID - PIAYA LBASIC METABOLIC [id number] 23:26:00 Test Item Value Reference Range Interpretation [...] S NOT APPLICABLE FOR DIALYSIS PATIEN TS. Printing Roller Handler ID - AKSHAT LB-TYPE NATRIURETIC FACTOR (BNP)2020-04-21 23:25:00 Test Item Value Reference Range Interpretation Comments B-TYPE NATRIURETIC PEPTIDE 1507 pg/mL 0-100 H (BEAKER) (test code = 700) Printing Roller Handler ID - PIJESSE LPT/[id number] 23:09:00 Test Item Value Reference Range Interpretation [...] mechanical heart valves.CBC W/PLT COUNT & AUTO [id number] 22:49:00 Test Item Value Reference Range Interpretation [...] (test code = 2801) RAD, CHEST, 2 [id number] 22:26:00Reason for exam:->SHORTNESS OF BREATH FINAL REPORT [...] No acute abnormality.Additional findings: None. Signed: Edenilson Gutierrezort Verified Date/Time: 04/21/2020 22:26:38 POCT-GLUCOSE [id number] 15:36:00 Test Item Value Reference Range Interpretation Comments POC-GLUCOSE METER 133 mg/dL 70-110 H : TESTED A T [facility] 6720 (BEAKER) (test code = [facility], 1538) 09697: Printing Roller Handler/Techni kush ID = [id number] for Wi lliams, Areiona POCT-GLUCOSE [id number] 12:38:00 Test Item Value Reference Range Interpretation Comments POC-GLUCOSE METER 100 mg/dL 70-110 : TESTED A T [facility] 6720 (BEAKER) (test code = [facility], 1538) 61490: Printing Roller Handler/Techni kush ID = [id number] for Wi lliams, Areiona [id number] 09:28:00 Test Item Value Reference Range Interpretation Comments PARTIAL THROMBOPLASTIN TIME 67.8 seconds 22.5-36.0 H (BEAKER) (test code = 760) [id number] 07:14:00 Test Item Value Reference Range Interpretation Comments PARTIAL THROMBOPLASTIN TIME 146.9 seconds 22.5-36.0 H (BEAKER) (test code = 760) CBC W/PLT COUNT & AUTO [id number] 05:40:00 Test Item Value Reference Range Interpretation [...] (BEAKER) (test code = 2801) BASIC METABOLIC [id number] 05:24:00 Test Item Value Reference Range Interpretation [...] S NOT APPLICABLE FOR DIALYSIS PATIEN TS. Printing Roller Handler ID - LORENZO WPROTHROMBIN TIME/[id number] 04:52:00 Test Item Value Reference Range Interpretation [...] H : TESTED A T [facility] 6720 (iVilka) (test code = [facility], 1538) 81229: Printing Roller Handler/Techni kush ID = [id number] for KATIA RAO [id number] 21:05:00 Test Item Value Reference Range Interpretation Comments PARTIAL THROMBOPLASTIN TIME 66.8 seconds 22.5-36.0 H (BEAKER) (test code = 760) [id number] 19:49:00 Test Item Value Reference Range Interpretation Comments PARTIAL THROMBOPLASTIN TIME > seconds 22.5-36.0 HH (BEAKER) (test code = 760) POCT-GLUCOSE [id number] 17:09:00 Test Item Value Reference Range Interpretation Comments POC-GLUCOSE METER 145 mg/dL 70-110 H : TESTED A T [facility] 6720 (BEAKER) (test code = [facility], 1538) 64022: Printing Roller Handler/Techni kush ID = [id number] for Christina Chisholm POCT-GLUCOSE [id number] 12:10:00 Test Item Value Reference Range Interpretation Comments POC-GLUCOSE METER 113 mg/dL 70-110 H : TESTED A T [facility] 6720 ([facility]) (test code = [facility], 1538) 10196: Printing Roller Handler/Techni kush ID = [id number] for Christina Chisholm [id number] 11:50:00 Test Item Value Reference Range Interpretation Comments PARTIAL THROMBOPLASTIN TIME 96.6 seconds 22.5-36.0 H (BEAKER) (test code = 760) POCT-GLUCOSE [id number] 08:28:00 Test Item Value Reference Range Interpretation Comments POC-GLUCOSE METER 150 mg/dL 70-110 H : TESTED A T [facility] 6720 (BEAKER) (test code = [facility], 1538) 27475: Printing Roller Handler/Techni kush ID = [id number] for Christina Chisholm BASIC METABOLIC [id number] 06:15:00 Test Item Value Reference Range Interpretation [...] S NOT APPLICABLE FOR DIALYSIS PATIEN TS. Printing Roller Handler ID - BSCBC W/PLT COUNT & AUTO [id number] 06:12:00 Test Item Value Reference Range Interpretation [...] 0-1 PERCENT (BEAKER) (test code = 2801) [id number] 05:43:00 Test Item Value Reference Range Interpretation Comments PARTIAL THROMBOPLASTIN TIME 61.8 seconds 22.5-36.0 H (BEAKER) (test code = 760) PROTHROMBIN TIME/[id number] 05:42:00 Test Item Value Reference Range Interpretation [...] H : TESTED A T [facility] 6720 (BEAKER) (test code = [place], 1538) 18750: Printing Roller Handler/Techni kush ID = [id number] for AN BENITA ERNANDEZ [id number] 22:49:00 Test Item Value Reference Range Interpretation Comments PARTIAL THROMBOPLASTIN TIME 86.0 seconds 22.5-36.0 H (BEAKER) (test code = 760) PT/[id number] 15:29:00 Test Item Value Reference Range Interpretation [...] INR is2.5-3.5 for patients wiht mechanical heart valves.[id number] 15:29:00 Test Item Value Reference Range Interpretation Comments PARTIAL THROMBOPLASTIN TIME 90.0 seconds 22.5-36.0 H (BEAKER) (test code = 760) BASIC METABOLIC [id number] 12:20:00 Test Item Value Reference Range Interpretation [...] S NOT APPLICABLE FOR DIALYSIS PATIEN TS. Printing Roller Handler ID - WELLS FCBC W/PLT COUNT & AUTO [id number] 07:29:00 Test Item Value Reference Range Interpretation [...] 0-1 PERCENT (BEAKER) (test code = 2801) [id number] 07:20:00 Test Item Value Reference Range Interpretation Comments PARTIAL THROMBOPLASTIN TIME 61.2 seconds 22.5-36.0 H (BEAKER) (test code = 760) While on warfarin.BASIC METABOLIC [id number] 07:06:00 Test Item Value Reference Range Interpretation Comments SODIUM (BEAKER) 129 meq/L 136-145 L (test code = 381) POTASSIUM (BEAKER) 4.6 meq/L 3.5-5.1 (test code = 379) CHLORIDE (BEAKER) 88 meq/L 98-107 L (test code = 382) CO2 (BEAKER) (test 22 meq/L -29 code = 355) BLOOD UREA NITROGEN 80 [...] S NOT APPLICABLE FOR DIALYSIS PATIEN TS. Printing Roller Handler ID - ANTONIA FPROTHROMBIN TIME/[id number] 06:37:00 Test Item Value Reference Range Interpretation [...] for patients wiht mechanical heart valves.While on warfarin.[id number] 23:03:00 Test Item Value Reference Range Interpretation Comments PARTIAL THROMBOPLASTIN TIME 54.4 seconds 22.5-36.0 H (BEAKER) (test code = 760) POCT-GLUCOSE [id number] 22:30:00 Test Item Value Reference Range Interpretation Comments POC-GLUCOSE METER 96 mg/dL 70-110 : TESTED A T [facility] 6720 (BEAKER) (test code = [place], 1538) 90303: Printing Roller Handler/Techni kush ID = [id number] for BENITA MASSEY POCT-GLUCOSE [id number] 15:59:00 Test Item Value Reference Range Interpretation Comments POC-GLUCOSE METER 133 mg/dL 70-110 H : TESTED A T [facility] 6720 (BEAKER) (test code = [facility], 1538) 55950: Printing Roller Handler/Techni kush ID = [id number] for Raquel Raoa [id number] 15:38:00 Test Item Value Reference Range Interpretation Comments PARTIAL THROMBOPLASTIN TIME 88.8 seconds 22.5-36.0 H (BEAKER) (test code = 760) POCT-GLUCOSE [id number] 12:08:00 Test Item Value Reference Range Interpretation Comments POC-GLUCOSE METER 130 mg/dL 70-110 H : TESTED A T [facility] 6720 ([employer]) (test code = [facility], 1538) 39114: Printing Roller Handler/Techni kush ID = [id number] for Raquel Raoa PROTHROMBIN TIME/[id number] 11:48:00 Test Item Value Reference Range Interpretation [...] INR is2.5-3.5 for patients wiht mechanical heart valves.[id number] 09:34:00 Test Item Value Reference Range Interpretation Comments PARTIAL THROMBOPLASTIN TIME 74.6 seconds 22.5-36.0 H (BEAKER) (test code = 760) CBC W/PLT COUNT & AUTO [id number] 01:34:00 Test Item Value Reference Range Interpretation [...] (BEAKER) (test code = 2801) BASIC METABOLIC [id number] 01:29:00 Test Item Value Reference Range Interpretation [...] S NOT APPLICABLE FOR DIALYSIS PATIEN TS. Printing Roller Handler ID - PIAYA [id number] 01:13:00 Test Item Value Reference Range Interpretation Comments PARTIAL THROMBOPLASTIN TIME 56.4 seconds 22.5-36.0 H (BEAKER) (test code = 760) POCT-GLUCOSE [id number] 23:59:00 Test Item Value Reference Range Interpretation Comments POC-GLUCOSE METER 134 mg/dL 70-110 H : TESTED A T [facility] 6720 (BEAKER) (test code = [facility] [employer] [facility], 153) 33802: Printing Roller Handler/Techni kush ID = [id number] for SCOOTER MIRZA [id number] 18:52:00 Test Item Value Reference Range Interpretation Comments PARTIAL THROMBOPLASTIN TIME 47.3 seconds 22.5-36.0 H (BEAKER) (test code = 760) [id number] 18:18:00 Test Item Value Reference Range Interpretation Comments PARTIAL THROMBOPLASTIN TIME > seconds 22.5-36.0 HH (BEAKER) (test code = 760) POCT-GLUCOSE [id number] 18:15:00 Test Item Value Reference Range Interpretation Comments POC-GLUCOSE METER 143 mg/dL 70-110 H : TESTED A T [facility] 6720 (BEAKER) (test code = [facility], 1538) 16904: Printing Roller Handler/Techni kush ID = [id number] for DO BBINS, RANDI POCT-GLUCOSE [id number] 12:15:00 Test Item Value Reference Range Interpretation Comments POC-GLUCOSE METER 123 mg/dL 70-110 H : TESTED A T [facility] 6720 (BEAKER) (test code = [facility] [employer]umber[employer] [facility], 1538) 57654: Printing Roller Handler/Techni kush ID = [id number] for DO BBINS, RANDI [id number] 11:28:00 Test Item Value Reference Range Interpretation Comments PARTIAL THROMBOPLASTIN TIME 57.3 seconds 22.5-36.0 H (BEAKER) (test code = 760) POCT-GLUCOSE [id number] 06:49:00 Test Item Value Reference Range Interpretation Comments POC-GLUCOSE METER 86 mg/dL 70-110 : TESTED A T [facility] 6720 (BEAKER) (test code = [facility], 1538) 07499: Printing Roller Handler/Techni kush ID = [id number] for SCOOTER MAYA BASIC METABOLIC [id number] 06:19:00 Test Item Value Reference Range Interpretation [...] S NOT APPLICABLE FOR DIALYSIS PATIEN TS. Printing Roller Handler ID - PIAYA LCBC W/PLT COUNT & AUTO [id number] 04:57:00 Test Item Value Reference Range Interpretation [...] PERCENT (BEAKER) (test code = 2801) POCT-GLUCOSE [id number] 02:25:00 Test Item Value Reference Range Interpretation Comments POC-GLUCOSE METER 69 mg/dL 70-110 L : TESTED A T [facility] 6720 (BEAKER) (test code = [facility] [place] [facility], 1538) 84746: Printing Roller Handler/Techni kush ID = [id number] for KEIT H, RADHA FL, FLUORO, NON-SPECIFIC, UP TO 1 [id number] 01:47:00Reason for exam:- >orif right femurFluoroscopic unit utilized for a procedure performed in the OR. No interpretation was requested. Refer to the operative report for findings. Refer to PACS for patient radiation dose information.[id number] 20:21:00 Test Item Value Reference Range Interpretation Comments PARTIAL THROMBOPLASTIN TIME 41.1 seconds 22.5-36.0 H (BEAKER) (test code = 760) 6 hours after starting heparin infusion and as indicated per sliding scalePOCT- GLUCOSE [id number] 17:57:00 Test Item Value Reference Range Interpretation Comments POC-GLUCOSE METER 82 mg/dL 70-110 : TESTED A T [facility] 6720 (BEAKER) (test code = [facility], 1538) 05394: Printing Roller Handler/Techni kush ID = [id number] for ALMA DELIA PATHAK [id number] 17:14:00 Test Item Value Reference Range Interpretation Comments FERRITIN (BEAKER) (test code = 5182.19 ng/mL 5.00-275.00 H 361) Printing Roller Handler ID - JOEL BEASLEY, TIBC, % SAT. (WITHOUT FERRITIN)2020-02-27 16:01:00 Test Item Value Reference Range Interpretation Comments IRON (BEAKER) (test code = 547) 125.0 ug/dL 40.0-160.0 TOTAL IRON BINDING CAPACITY 219 ug/dL 250-450 L (BEAKER) (test code = 769) IRON % SATURATION (2) (BEAKER) 57 % 20-55 H (test code = 2590) Printing Roller Handler ID - JOEL [id number] 12:54:00 Test Item Value Reference Range Interpretation Comments PARTIAL THROMBOPLASTIN TIME 41.5 seconds 22.5-36.0 H (BEAKER) (test code = 760) Prior to initiating heparinPLATELET [id number] 12:51:00 Test Item Value Reference Range Interpretation Comments PLATELET COUNT (BEAKER) (test 116 K/CU MM 150-450 L code = 756) Printing Roller Handler ID - [id number] clotSARS-COV2/RT-PCR ([facility])2020-02-27 12:46:00 Test Item Value Reference Range Interpretation Comments SARS-COV2/RT-PCR (test code = Negative Not Detected, Negative 5386259) SARS-COV-[address] [facility] (test code = 4942439) Negative result for this test determines that [...] 564(g) of the Act.Fact Sheet for Healthcare Providers:https://www.[employer].com/sites/default/files/product/documents/Fact_Shee x_AY_Zlrxunzem_Cxae_CYQI-NjR-0.pdfFact Sheet for Healthcare Patients:https://www.[employer]/sites/default/files/product/ documents/Evqr_Eqqrk_Ymicqqvr_Mtqh_EANV-UkK-3.pdfPerforming Laboratory:[facility], [place] [address]XIOT-DOCGTNN METER 2020-02-27 12:12:00 Test Item Value Reference Range Interpretation Comments POC-GLUCOSE METER 90 mg/dL 70-110 : TESTED A T [facility] 6720 (BEAKER) (test code = [facility], 1538) 97131: Printing Roller Handler/Techni kush ID = [id number] for SELENA BIRCH HEPATITIS B SURFACE [id number] 11:32:00 Test Item Value Reference Range Interpretation Comments HEPATITIS B SURFACE ANTIGEN (2) Nonreactive Nonreactive (BEAKER) (test code = 2585) Specimen is considered negative for HBsAg.RAD, WRIST, 2 VIEWS, [id number] 09:19:00Reason for exam:->fall, immbolityFINAL REPORT TECHNIQUE: Frontal, oblique, and lateral views of the left wrist. INDICATION: Fall immobility. COMPARISON: None. FINDINGS:No acute fractures or dislocations.Joint spaces are within normal limits.There are atherosclerotic calcifications of the vessels. Surgical clipsproject over the distal radius.. IMPRESSION:No acute osseous abnormality. Signed: Bhavin Artis MDReport Verified Date/Time: 02/27/2020 09:19:08 Reading Location: [facility] C0[facility] CT Body ReadingRoom [id number] 08:30:00 Test Item Value Reference Range Interpretation Comments POTASSIUM (BEAKER) (test code = 5.0 meq/L 3.5-5.1 379) Printing Roller Handler ID - AKSHAT LRAD, PELVIS, 1 OR 2 [id number] 07:23:00Reason for exam:->femoral neck fxFINAL REPORT RAD, [...] Lisa Verified Date/Time: 02/27/2020 07:23:52 Reading Location: [address] Neuro Reading Room RAD, HIP, 2 VIEWS, [id number] 07:23:00Reason for exam:- >femoral neck fractureFINAL REPORT [...] Lisa Verified Date/Time: 02/27/2020 07:23:52 Reading Location: [address] Neuro Reading Room POCT-GLUCOSE [id number] 06:26:00 Test Item Value Reference Range Interpretation Comments POC-GLUCOSE METER 72 mg/dL 70-110 : TESTED A T [facility] 6720 ([facility] (test code = [facility], 1538) 00851: Printing Roller Handler/Techni kush ID = [id number] for BRITNEY SCOOTER ESPINAL COMPREHENSIVE METABOLIC [id number] 02:44:00 Test Item Value Reference Range Interpretation [...] S NOT APPLICABLE FOR DIALYSIS PATIEN TS. Printing Roller Handler ID - AKSHAT LPROTHROMBIN [id number] 02:03:00 Test Item Value Reference Range Interpretation [...] INR is2.5-3.5 for patients wiht mechanical heart valves.[id number] 01:56:00 Test Item Value Reference Range Interpretation Comments PHOSPHORUS (BEAKER) (test code = 7.3 mg/dL 2.3-4.7 H 604) Printing Roller Handler ID - AKSHAT [id number] 01:56:00 Test Item Value Reference Range Interpretation Comments MAGNESIUM (BEAKER) (test code = 1.9 mg/dL 1.6-2.6 627) Printing Roller Handler JOSE ODEN LCBC W/PLT COUNT & AUTO [id number] 01:33:00 Test Item Value Reference Range Interpretation [...] (test code = 2801) AFB CULTURE + [id number] 07:33:00 Test Item Value Reference Range Interpretation Comments CULTURE (BEAKER) (test No acid-fast bacilli code = 1095) isolated in 42 days AFB SMEAR (BEAKER) No acid fast bacilli (test code = 994) seen FUNGUS CULTURE + [id number] 17:26:00 Test Item Value Reference Range Interpretation Comments CULTURE (BEAKER) (test No fungus isolated in code = 1095) 28 days FUNGUS SMEAR ([facility] No fungi seen (test code = 1406) PROTHROMBIN [id number] 00:05:00 Test Item Value Reference Range Interpretation Comments PT PATIENT (test code = PTP) 18.2 SECONDS 9.3-12.9 H INTERNATIONAL NORMAL RATIO 1.57 INR Unit 0.8-1.2 H (test code = INR) POCT-GLUCOSE [id number] 13:35:00 Test Item Value Reference Range Interpretation Comments POC-GLUCOSE METER 116 mg/dL 70-110 H TESTED AT [place] [address] ([facility]) (test code = [facility] 1538) [address] POCT-GLUCOSE [id number] 08:54:00 Test Item Value Reference Range Interpretation Comments POC-GLUCOSE METER 99 mg/dL 70-110 TESTED AT [place] [address] ([facility]) (test code = [facility] [address] 1538) [id number] 06:34:00 Test Item Value Reference Range Interpretation Comments PARTIAL THROMBOPLASTIN TIME 46.7 seconds 22.5-36.0 H ([facility]) (test code = 760) While on warfarin.PROTHROMBIN TIME/[id number] 06:33:00 Test Item Value Reference Range Interpretation Comments PROTIME ([facility]) (test code = 26.5 seconds 11.7-14.7 H 759) INR ([facility]) (test code = 370) 2.6 <=5.9 [...] CORPUSCULAR HEMOGLOBIN CONC 30.8 GM/DL 32.3-36.5 L ([facility]) (test code = 752) RED CELL DISTRIBUTION WIDTH 17.9 % 11.6-14.4 H ([facility]) (test code = 412) PLATELET COUNT ([facility]) (test 148 K/CU MM 150-450 L code = 756) MEAN PLATELET VOLUME ([facility]) 9.2 fL 9.4-12.4 L (test code = 754) NUCLEATED RED BLOOD CELLS 1 /100 WBC 0-0 H ([facility]) (test code = 413) POCT-GLUCOSE [id number] 21:38:00 Test Item Value Reference Range Interpretation Comments POC-GLUCOSE METER 192 mg/dL 70-110 H TESTED AT [place] [address] ([facility]) (test code = [facility]ER [facility] 1538) [address] POCT-GLUCOSE [id number] 13:01:00 Test Item Value Reference Range Interpretation Comments POC-GLUCOSE METER 200 mg/dL 70-110 H TESTED AT [place] [address] ([facility]) (test code = [facility]ER [facility] 1538) [address] POCT-GLUCOSE [id number] 08:00:00 Test Item Value Reference Range Interpretation Comments POC-GLUCOSE METER 123 mg/dL 70-110 H TESTED AT [place] [address] ([facility]) ([facility] = [facility] 1538) [address] [id number] 06:40:00 Test Item Value Reference Range Interpretation Comments PARTIAL THROMBOPLASTIN TIME 83.1 seconds 22.5-36.0 H ([facility]) (test code = 760) [id number] 05:54:00 Test Item Value Reference Range Interpretation Comments PARTIAL THROMBOPLASTIN TIME > seconds 22.5-36.0 HH ([facility]) (test code = 760) PROTHROMBIN [id number] 05:30:00 Test Item Value Reference Range Interpretation Comments PROTIME ([facility]) (test code = 24.1 seconds 11.7-14.7 H 759) INR ([facility]) (test code = 370) 2.3 <=5.9 [...] (BEAKER) (test code = 413) BASIC METABOLIC [id number] 05:10:00 Test Item Value Reference Range Interpretation [...] H (BEAKER) (test code = 652) CALCIUM (BE[facility]) 9.3 mg/dL 8.4-10.2 (test code = 697) EGFR ([facility]) (test 15 mL/min/1.73 ESTIMA JAYLA GFR IS code = 1092) sq m NOT ACCURATE CREATININE CLEARANCE IN PREDICTING GLOMERULAR FILTRATION RATE . ESTIMATED GFR I S NOT APPLICABLE FOR DIALYSIS PATIEN TS. OCCULT BLOOD, [id number] 23:46:00 Test Item Value Reference Range Interpretation Comments FECAL OCCULT BLOOD ([facility]) (test Negative Negative code = 618) POCT-GLUCOSE [id number] 22:52:00 Test Item Value Reference Range Interpretation Comments POC-GLUCOSE METER 192 mg/dL 70-110 H TESTED AT [place] [address] ([facility]) (test code = MARIA GOSMAN Paul [facility] 1538) [address] POCT-GLUCOSE [id number] 17:11:00 Test Item Value Reference Range Interpretation Comments POC-GLUCOSE METER 149 mg/dL 70-110 H TESTED AT [place] [address] ([facility]) (test code = [facility] [employer] [facility] 1538) [address] PROTHROMBIN [id number] 13:00:00 Test Item Value Reference Range Interpretation Comments PROTIME ([facility]) (test code = 19.9 seconds 11.7-14.7 H 759) INR ([facility]) (test code = 370) 1.8 <=5.9 RECOMMENDED COUMADIN/WARFARIN INR THERAPY RANGESSTANDARD DOSE: 2.0 - 3.0 Includes: PROPHYLAXIS forvenous thrombosis, systemic embolization; TREATMENT for venous thrombosis and/or pulmonary embolus.HIGH RISK: Target INR is 2.5-3.5 for patients with mechanical heart valves.While on warfarin.POCT-GLUCOSE METER 2019-01-04 12:14:00 Test Item Value Reference Range Interpretation Comments POC-GLUCOSE METER 134 mg/dL 70-110 H TESTED AT [place] [address] ([facility]) (test code = [facility] [employer] [facility] 1538) [address] RAD, CHEST, 1 VIEW, NON [id number] 08:02:00Reason for exam:->Post opShould this be performed [...] MDReport Verified Date/Time: 01/04/2019 08:02:18 Reading Location: [facility] B1 C013W Consult Reading Room Electronicallysigned by: EDENILSON BLOOM M.D. on 01/04/2019 08:02 AMPOCT-GLUCOSE [id number] 07:42:00 Test Item Value Reference Range Interpretation Comments POC-GLUCOSE METER 98 mg/dL 70-[address] [facility] 6720 (BEAKER) (test code = [place] [address] 1538) BASIC METABOLIC [id number] 07:28:00 Test Item Value Reference Range Interpretation [...] 0-0 H (BEAKER) (test code = 413) [id number] 06:08:00 Test Item Value Reference Range Interpretation Comments PARTIAL THROMBOPLASTIN TIME 70.6 seconds 22.5-36.0 H (BEAKER) (test code = 760) [id number] 23:32:00 Test Item Value Reference Range Interpretation Comments PARTIAL THROMBOPLASTIN TIME 77.2 seconds 22.5-36.0 H (BEAKER) (test code = 760) POCT-GLUCOSE [id number] 21:55:00 Test Item Value Reference Range Interpretation Comments POC-GLUCOSE METER 150 mg/dL 70-[address] [facility] 6720 ([facility]) (test code = [place] 1538) [address] [id number] 18:25:00 Test Item Value Reference Range Interpretation Comments PARTIAL THROMBOPLASTIN TIME 71.2 seconds 22.5-36.0 H (BEAKER) (test code = 760) POCT-GLUCOSE [id number] 13:45:00 Test Item Value Reference Range Interpretation Comments POC-GLUCOSE METER 375 mg/dL 70-110 H Notified R Toy PÉREZ/TESTED ([facility]) (test code = AT [facility] 6720 [facility] 1538) [facility] [address] [id number] 10:26:00 Test Item Value Reference Range Interpretation Comments PARTIAL THROMBOPLASTIN TIME 94.0 seconds 22.5-36.0 H ([facility]) (test code = 760) While on warfarin.PROTHROMBIN TIME/[id number] 10:24:00 Test Item Value Reference Range Interpretation [...] mg/dL 70-[address] [facility] 6720 ([facility]) (test code = [facility]ER Paul [facility] 1538) [address] RAD, CHEST, 1 VIEW, NON [id number] 08:19:00Reason for exam:->Post opShould this be performed [...] Lisa Verified Date/Time: 01/03/2019 08:19:51 Reading Location: [facility] C013 Neuro Reading Room [id number] 03:31:00 Test Item Value Reference Range Interpretation Comments PARTIAL THROMBOPLASTIN TIME 64.2 seconds 22.5-36.0 H (BEAKER) (test code = 760) BASIC METABOLIC [id number] 03:21:00 Test Item Value Reference Range Interpretation [...] (test code = 412) PLATELET COUNT ([facility]) (test 167 K/CU MM 150-450 code = 756) MEAN PLATELET VOLUME ([facility]) 8.7 fL 9.4-12.4 L (test code = 754) NUCLEATED RED BLOOD CELLS 1 /100 WBC 0-0 H ([facility]) (test code = 413) POCT-GLUCOSE [id number] 22:54:00 Test Item Value Reference Range Interpretation Comments POC-GLUCOSE METER 206 mg/dL 70-110 H TESTED AT [place] [address] ([facility]) (test code = [place] [facility] 1538) [address] [id number] 19:36:00 Test Item Value Reference Range Interpretation Comments PARTIAL THROMBOPLASTIN TIME 79.3 seconds 22.5-36.0 H ([facility]) (test code = 760) POCT-GLUCOSE [id number] 17:59:00 Test Item Value Reference Range Interpretation Comments POC-GLUCOSE METER 186 mg/dL 70-110 H TESTED AT [place] [address] ([facility]) (test code = [place] [facility] 1538) [address] POCT-GLUCOSE [id number] 13:54:00 Test Item Value Reference Range Interpretation Comments POC-GLUCOSE METER 139 mg/dL 70-110 H TESTED AT [place] [address] ([facility]) (test code = [facility] Humberto [facility] 1538) [address] POCT-GLUCOSE [id number] 13:05:00 Test Item Value Reference Range Interpretation Comments POC-GLUCOSE METER 163 mg/dL 70-110 H TESTED AT [place] [address] ([facility]) (test code = [facility] H[place] [facility] 1538) [address] [id number] 12:49:00 Test Item Value Reference Range Interpretation Comments PARTIAL THROMBOPLASTIN TIME 64.9 seconds 22.5-36.0 H ([facility]) (test code = 760) OCCULT BLOOD, [id number] 12:31:00 Test Item Value Reference Range Interpretation Comments FECAL OCCULT BLOOD ([facility]) (test Negative Negative code = 618) RAD, CHEST, 1 VIEW, NON [id number] 10:37:00Reason for exam:->Post opShould this be performed [...] 01/02/2019 10:37:35 Reading Loc ation: [facility] Radiology Reading Room POCT-GLUCOSE [id number] 08:07:00 Test Item Value Reference Range Interpretation Comments POC-GLUCOSE METER 107 mg/dL 70-[address] [facility] 6720 ([facility]) (test code = [place] [facility] 1538) [id number] [id number] 04:48:00 Test Item Value Reference Range Interpretation Comments PARTIAL THROMBOPLASTIN TIME 106.0 seconds 22.5-36.0 H ([facility]) (test code = 760) While on warfarin.BASIC METABOLIC [id number] 04:48:00 Test Item Value Reference Range Interpretation [...] NOT APPLICABLE FOR DIALYSIS PATIEN TS. PROTHROMBIN TIME/[id number] 04:39:00 Test Item Value Reference Range Interpretation [...] 0-0 (BEAKER) (test code = 413) POCT-GLUCOSE [id number] 22:17:00 Test Item Value Reference Range Interpretation Comments POC-GLUCOSE METER 117 mg/dL 70-[address] [facility] 67[address] ([facility]) (test code = FOSTER Paul [facility] 1538) [address] RAD, CHEST, 1 VIEW, NON [id number] 19:40:00Reason for exam:->Post opShould this be performed [...] Bloom Verified Date/Time: 01/01/2019 19:40:01 Reading Location: [address] Consult Reading Room POCT-GLUCOSE [id number] 18:22:00 Test Item Value Reference Range Interpretation Comments POC-GLUCOSE METER 159 mg/dL 70-[address] [facility] 6720 ([facility]) (test code = FOSTER Paul [facility] 1538) [address] POCT-GLUCOSE [id number] 14:12:00 Test Item Value Reference Range Interpretation Comments POC-GLUCOSE METER 135 mg/dL 70-[address] [facility] 6720 ([facility]) (test code = [facility] 1538) [address] HEPATITIS B SURFACE [id number] 11:52:00 Test Item Value Reference Range Interpretation Comments HEPATITIS B SURFACE ANTIGEN (2) Nonreactive Nonreactive ([facility]) (test code = 2585) POCT-GLUCOSE [id number] 08:40:00 Test Item Value Reference Range Interpretation Comments POC-GLUCOSE METER 85 mg/dL 70-[address] [facility] 6720 ([facility]) (test code = [facility] Humberto [facility] [address] 1538) BASIC METABOLIC [id number] 04:17:00 Test Item Value Reference Range Interpretation [...] S NOT APPLICABLE FOR DIALYSIS PATIEN TS. [id number] 03:40:00 Test Item Value Reference Range Interpretation Comments PARTIAL THROMBOPLASTIN TIME 84.1 seconds 22.5-36.0 H (BEAKER) (test code = 760) While on warfarin.PROTHROMBIN TIME/[id number] 03:39:00 Test Item Value Reference Range Interpretation [...] = 8.3 GM/DL 13.7-17.5 L 410) HEMATOCRIT (AKER) (test code = 26.3 % 40.1-51.0 L 411) MEAN CORPUSCULAR VOLUME (AKER) 101.2 fL 79.0-92.2 H (test code = 753) MEAN CORPUSCULAR HEMOGLOBIN 31.9 pg 25.7-32.2 (AKER) (test code = 751) MEAN CORPUSCULAR HEMOGLOBIN CONC 31.6 GM/DL 32.3-36.5 L (AKER) (test code = 752) RED CELL DISTRIBUTION WIDTH 15.9 % 11.6-14.4 H (AKER) (test code = 412) PLATELET COUNT ([facility]) (test 186 K/CU MM 150-450 code = 756) MEAN PLATELET VOLUME ([facility]) 9.0 fL 9.4-12.4 L (test code = 754) NUCLEATED RED BLOOD CELLS 0 /100 WBC 0-0 ([facility]) (test code = 413) POCT-GLUCOSE [id number] 22:08:00 Test Item Value Reference Range Interpretation Comments POC-GLUCOSE METER 194 mg/dL 70-110 H TESTED AT [place] [address] ([facility]) (test code = FOSTER BRANDON 1538) [address] POCT-GLUCOSE [id number] 22:03:00 Test Item Value Reference Range Interpretation Comments POC-GLUCOSE METER 203 mg/dL 70-110 H TESTED AT [place] [address] ([facility]) (test code = FOSTER VU [place] 1538) [address] POCT-GLUCOSE [id number] 21:42:00 Test Item Value Reference Range Interpretation Comments POC-GLUCOSE METER 42 mg/dL 70-110 L TESTED AT [place] [address] ([facility]) (test [place] = [place] [address] 1538) [id number] 21:35:00 Test Item Value Reference Range Interpretation Comments PARTIAL THROMBOPLASTIN TIME 80.4 seconds 22.5-36.0 H ([facility]) (test code = 760) POCT-GLUCOSE [id number] 18:03:00 Test Item Value Reference Range Interpretation Comments POC-GLUCOSE METER 144 mg/dL 70-110 H TESTED AT [place] [address] (BEAKER) (test code = FOSTER VU [place] 1538) [address] TISSUE [id number] 16:33:00Surgical Pathology Report Case: [id number] Authorizing Provider: ZacharyEnmanuel Collected: 12/26/2018 1537 MD Liban OrderingLocation: [address] Received: 12/29/2018 0814 Service Pathologist: Brigida [...] stains. GMSImmunohistochemistry technical testing was performed at [facility], Pathology Laboratory where it was [...] toperform high complexity clinical laboratory testing.CPT CODE: [id number] electronically signed by Brigida Parks MD on [...] ARE NEGATIVE Signing Pathologist Direct Phone Line: [phone] signed by Brigida Parks MD on 12/30/2018 at 6:43 PMPreliminary result electronically signed by Brigida Parks MD on 12/29/2018 at 4:54 [id number] X 2; 44482; 08346; 55743 X 2Upper endoscopy, biopsyPreoperative and postoperative diagnosis: [...] AND CMVImmunohistochemistry technical testing was performed at [facility], Pathology Laboratory where it was [...] qualified toperform high complexity clinical laboratory testing.POCT-GLUCOSE [id number] 13:57:00 Test Item Value Reference Range Interpretation Comments POC-GLUCOSE METER 178 mg/dL 70-[address] [facility] 6720 ([facility]) (test code = MARIA GOSMAN Paul [facility] 1538) [address] [id number] 12:54:00 Test Item Value Reference Range Interpretation Comments PARTIAL THROMBOPLASTIN TIME 69.4 seconds 22.5-36.0 H ([facility]) (test code = 760) RAD, CHEST, 1 VIEW, NON [id number] 09:26:00Reason for exam:->Post opShould this be performed [...] MDReport Verified Date/Time: 12/31/2018 09:26:31 Reading Location: [facility] Radiology Reading Room POCT-GLUCOSE [id number] 09:01:00 Test Item Value Reference Range Interpretation Comments POC-GLUCOSE METER 162 mg/dL 70-[address] [facility] 6720 (BEAKER) (test code = [place] VU [place] 1538) [address] BASIC METABOLIC [id number] 06:50:00 Test Item Value Reference Range Interpretation [...] NOT APPLICABLE FOR DIALYSIS PATIEN TS. PROTHROMBIN [id number] 06:38:00 Test Item Value Reference Range Interpretation Comments PROTIME (BEAKER) (test code = 19.1 seconds 11.7-14.7 H 759) INR (BEAKER) (test code = 370) 1.7 <=5.9 RECOMMENDED COUMADIN/WARFARIN INR THERAPY RANGESSTANDARD DOSE: 2.0 - 3.0 Includes: PROPHYLAXIS forvenous thrombosis, systemic embolization; TREATMENT for venous thrombosis and/or pulmonary embolus.HIGH RISK: Target INR is 2.5-3.5 for patients with mechanical heart valves.While on warfarin.[id number] 06:37:00 Test Item Value Reference Range Interpretation [...] 0-0 (BEAKER) (test code = 413) POCT-GLUCOSE [id number] 00:45:00 Test Item Value Reference Range Interpretation Comments POC-GLUCOSE METER 124 mg/dL 70-[address] [facility] 6720 (BEAKER) (test code = [place] 1538) [address] [id number] 19:14:00 Test Item Value Reference Range Interpretation Comments PARTIAL THROMBOPLASTIN TIME 57.8 seconds 22.5-36.0 H (BEAKER) (test code = 760) POCT-GLUCOSE [id number] 17:53:00 Test Item Value Reference Range Interpretation Comments POC-GLUCOSE METER 133 mg/dL 70-110 H TESTED AT [place] [address] ([facility]) (test code = FOSTER Paul [facility] 1538) [address] POCT-GLUCOSE [id number] 13:19:00 Test Item Value Reference Range Interpretation Comments POC-GLUCOSE METER 147 mg/dL 70-110 H TESTED AT [place] [address] ([facility]) (test code = FOSTER Paul [facility] 1538) [address] [id number] 12:43:00 Test Item Value Reference Range Interpretation Comments PARTIAL THROMBOPLASTIN TIME 57.0 seconds 22.5-36.0 H (BEAKER) (test code = 760) [id number] 10:17:00 Test Item Value Reference Range Interpretation Comments PARTIAL THROMBOPLASTIN TIME 134.5 seconds 22.5-36.0 H (BEAKER) (test code = 760) POCT-GLUCOSE [id number] 07:43:00 Test Item Value Reference Range Interpretation Comments POC-GLUCOSE METER 107 mg/dL 70-110 TESTED AT [place] [address] ([facility]) (test code = MARIA GMO Humberto [facility] 1538) [address] BASIC METABOLIC [id number] 06:46:00 Test Item Value Reference Range Interpretation [...] PATIEN TS. RAD, CHEST, 1 VIEW, NON [id number] 06:25:00Reason for exam:->Post opShould this be performed [...] Lisa Verified Date/Time: 12/30/2018 06:25:51 Reading Location: [address] Neuro Reading Room PROTHROMBIN TIME/[id number] 06:06:00 Test Item Value Reference Range Interpretation [...] (test code = 412) PLATELET COUNT ([facility]) (test 139 K/CU MM 150-450 L code = 756) MEAN PLATELET VOLUME (AKER) 9.1 fL 9.4-12.4 L (test code = 754) NUCLEATED RED BLOOD CELLS 0 /100 WBC 0-0 ([facility]) (test code = 413) POCT-GLUCOSE [id number] 22:19:00 Test Item Value Reference Range Interpretation Comments POC-GLUCOSE METER 179 mg/dL 70-110 H TESTED AT [place] [address] ([facility]) (test code = FOSTER VU [place] 1538) [address] POCT-GLUCOSE [id number] 17:39:00 Test Item Value Reference Range Interpretation Comments POC-GLUCOSE METER 181 mg/dL 70-110 H TESTED AT [place] [address] ([facility]) (test code = FOSTER VU [place] 1538) [address] POCT-GLUCOSE [id number] 13:14:00 Test Item Value Reference Range Interpretation Comments POC-GLUCOSE METER 102 mg/dL 70-110 TESTED AT [place] [address] ([facility]) (test code = FOSTER Paul [facility] 1538) [address] RAD, CHEST, 1 VIEW, NON [id number] 08:56:00Reason for exam:->Post opShould this be performed [...] place. IMPRESSION: No interval change. Signed: Edenilson Bloomort Verified Date/Time: 12/29/2018 08:56:32 Reading Location: [facility] Radiology Reading Room Electronically signed by: EDENILSON BLOOM M.D.on 12/29/2018 08:56 AMPOCT-GLUCOSE [id number] 07:53:00 Test Item Value Reference Range Interpretation Comments POC-GLUCOSE METER 135 mg/dL 70-[address] [facility] 6720 (BEAKER) (test code = FOSTER VU [place] 1538) [address] [id number] 06:45:00 Test Item Value Reference Range Interpretation Comments PARTIAL THROMBOPLASTIN TIME 83.5 seconds 22.5-36.0 H (BEAKER) (test code = 760) While on warfarin.PROTHROMBIN TIME/[id number] 06:44:00 Test Item Value Reference Range Interpretation [...] WBC 0-0 (BEAKER) (test code = 413) [id number] 00:01:00 Test Item Value Reference Range Interpretation Comments PARTIAL THROMBOPLASTIN TIME 78.5 seconds 22.5-36.0 H (BEAKER) (test code = 760) POCT-GLUCOSE [id number] 21:26:00 Test Item Value Reference Range Interpretation Comments POC-GLUCOSE METER 139 mg/dL 70-[address] [facility] 6720 (BEAKER) (test code = FOSTER Paul [facility] 1538) [address] POCT-GLUCOSE [id number] 17:58:00 Test Item Value Reference Range Interpretation Comments POC-GLUCOSE METER 146 mg/dL 70-[address] [facility] 6720 (J[facility]) (test code = FOSTER Paul [facility] 1538) [address] [id number] 17:16:00 Test Item Value Reference Range Interpretation Comments PARTIAL THROMBOPLASTIN TIME 34.5 seconds 22.5-36.0 (JARROD) (test code = 760) Prior to initiating heparinPOCT-GLUCOSE [id number] 12:54:00 Test Item Value Reference Range Interpretation Comments POC-GLUCOSE METER 133 mg/dL 70-[address] [facility] 6720 ([facility]) (test code = FOSTER Paul [facility] 1538) [address] RAD, CHEST, 1 VIEW, NON [id number] 08:06:00Reason for exam:->Post opShould this be performed at the bedside?->YesFINAL REPORT Chest one view. Clinical history: Post op Comparison: 12/27/2018 Discussion: A frontal chest is provided. Cardiomediastinal contours are unchanged. Lines and tubesare in stable position. Unchanged right-sided pleural-parenchymal opacities. Left lung is grossly clear. Vessels do not appear engorged. No pneumothorax. Signed: Dionicio Chery Verified Date/Time: 12/28/2018 08:06:07 Reading Location: [address] Neuro Reading Room BASIC METABOLIC [id number] 06:52:00 Test Item Value Reference Range Interpretation [...] NOT APPLICABLE FOR DIALYSIS PATIEN TS. PROTHROMBIN TIME/[id number] 06:31:00 Test Item Value Reference Range Interpretation [...] BLOOD CELLS 0 /100 WBC 0-0 ([facility]) (test code = 413) POCT-GLUCOSE [id number] 21:41:00 Test Item Value Reference Range Interpretation Comments POC-GLUCOSE METER 163 mg/dL 70-[address] [facility] 6720 ([facility]) (test code = FOSTER Paul [place] 1538) [address] POCT-GLUCOSE [id number] 17:23:00 Test Item Value Reference Range Interpretation Comments POC-GLUCOSE METER 119 mg/dL 70-[address] [facility] 6720 ([facility]) (test code = FOSTER Paul [place] 1538) [address] RAD, CHEST, 1 VIEW, NON [id number] 14:49:00Reason for exam:->Post opShould this be performed [...] Romeort Verified Date/Time: 12/27/2018 14:49:48 Reading Location: [address] Ortho Consult Reading Room ANG, NON-TUNNELED CATH >5 Y.O. [id number] 14:17:00Reason for exam:->Central line placement, poor access, [...] guide wire was advanced centrally. A 7 Singaporean 20 cm triple lumen catheter was advanced [...] Sykes Verified Date/Time: 12/27/2018 14:17:02 Reading Location: [facility] P048 Angio Body Reading Room [id number] 13:44:00 Test Item Value Reference Range Interpretation Comments PARTIAL THROMBOPLASTIN TIME 44.3 seconds 22.5-36.0 H ([facility]) (test code = 760) Prior to initiating heparinPOCT-GLUCOSE [id number] 13:27:00 Test Item Value Reference Range Interpretation Comments POC-GLUCOSE METER 127 mg/dL 70-110 H TESTED AT [place] [address] ([facility]) (test code = [facility] 1538) [address] POCT-GLUCOSE [id number] 08:58:00 Test Item Value Reference Range Interpretation Comments POC-GLUCOSE METER 79 mg/dL 70-110 TESTED AT [place] [id number] ([facility]) (test code = [facility] [address] 1538) BASIC METABOLIC [id number] 07:09:00 Test Item Value Reference Range Interpretation [...] NOT APPLICABLE FOR DIALYSIS PATIEN TS. PROTHROMBIN [id number] 06:52:00 Test Item Value Reference Range Interpretation [...] CORPUSCULAR HEMOGLOBIN CONC 30.7 GM/DL 32.3-36.5 L ([facility]) (test code = 752) RED CELL DISTRIBUTION WIDTH 15.0 % 11.6-14.4 H ([facility]) (test code = 412) PLATELET COUNT ([facility]) (test code 90 K/CU MM 150-450 L = 756) MEAN PLATELET VOLUME ([facility]) 9.1 fL 9.4-12.4 L (test code = 754) NUCLEATED RED BLOOD CELLS ([facility]) 0 /100 WBC 0-0 (test code = 413) POCT-GLUCOSE [id number] 23:54:00 Test Item Value Reference Range Interpretation Comments POC-GLUCOSE METER 73 mg/dL 70-110 TESTED AT [place] [address] ([facility]) (test code = FOSTER Paul [facility] [address] 1538) POCT-GLUCOSE [id number] 16:02:00 Test Item Value Reference Range Interpretation Comments POC-GLUCOSE METER 108 mg/dL 70-110 TESTED AT [place] [address] ([facility]) (test code = FOSTER Paul [facility] 1538) [address] POCT-GLUCOSE [id number] 15:24:00 Test Item Value Reference Range Interpretation Comments POC-GLUCOSE METER 74 mg/dL 70-110 TESTED AT [place] [address] ([facility]) ([facility] = [facility] [address] 1538) POCT-GLUCOSE [id number] 10:29:00 Test Item Value Reference Range Interpretation Comments POC-GLUCOSE METER 88 mg/dL 70-110 TESTED AT [place] [address] ([facility]) (test [facility] = [facility] [address] 1538) RAD, CHEST, 1 VIEW, NON [id number] 07:33:00Reason for exam:->Post opShould this be performed [...] Mejiaeport Verified Date/Time: 12/26/2018 07:33:38 Reading Location: [facility] Radiology Reading Room BASIC METABOLIC [id number] 06:42:00 Test Item Value Reference Range Interpretation [...] 0-0 H (test code = 413) PROTHROMBIN TIME/[id number] 05:44:00 Test Item Value Reference Range Interpretation Comments PROTIME (BEAKER) (test code = 24.4 seconds 11.7-14.7 H 759) INR ([facility]) (test code = 370) 2.2 <=5.9 RECOMMENDED COUMADIN/WARFARIN INR THERAPY RANGESSTANDARD DOSE: 2.0 - 3.0 Includes: PROPHYLAXIS forvenous thrombosis, systemic embolization; TREATMENT for venous thrombosis and/or pulmonary embolus.HIGH RISK: Target INR is 2.5-3.5 for patients with mechanical heart valves.POCT-GLUCOSE [id number] 00:06:00 Test Item Value Reference Range Interpretation Comments POC-GLUCOSE METER 88 mg/dL 70-110 TESTED AT [place] [address] ([facility]) (test code = FOSTER Paul [facility] [address] 1538) POCT-GLUCOSE [id number] 19:06:00 Test Item Value Reference Range Interpretation Comments POC-GLUCOSE METER 121 mg/dL 70-110 H TESTED AT [place] [id number] ([facility]) (test code = [facility] Humberto [facility] 1538) [address] PROTHROMBIN [id number] 16:10:00 Test Item Value Reference Range Interpretation Comments PROTIME ([facility]) (test code = 30.1 seconds 11.7-14.7 H 759) INR ([facility]) (test code = 370) 2.9 <=5.9 RECOMMENDED COUMADIN/WARFARIN INR THERAPY RANGESSTANDARD DOSE: 2.0 - 3.0 Includes: PROPHYLAXIS forvenous thrombosis, systemic embolization; TREATMENT for venous thrombosis and/or pulmonary embolus.HIGH RISK: Target INR is 2.5-3.5 for patients with mechanical heart valves.BASIC METABOLIC [id number] 16:10:00 Test Item Value Reference Range Interpretation [...] S NOT APPLICABLE FOR DIALYSIS PATIEN TS. [id number] 16:09:00 Test Item Value Reference Range Interpretation [...] 0-0 H (test code = 413) POCT-GLUCOSE [id number] 08:03:00 Test Item Value Reference Range Interpretation Comments POC-GLUCOSE METER 89 mg/dL 70-[address] [facility] 6720 ([facility]) (test code = [place] [address] 1538) RAD, CHEST, 1 VIEW, NON [id number] 07:46:00Reason for exam:->Post opShould this be performed at the bedside?->YesFINAL REPORT Chest one view. Clinical history: Post op Comparison: 12/24/2018 Discussion: A frontal chest is provided. Cardiomediastinal contours are unchanged. Stable appearance of pleural-parenchymal opacity at the right mid to lower lung. There is a tiny right apical pneumothorax, unchanged. Probable trace left effusion. Signed: Dionicio Chery Verified Date/Time: 07:46:01 Reading Location: [facility] Radiology Reading Room RAD, ABDOMEN/KUB, 1 VIEW [id number] 07:25:00Reason for exam:->abdominal distentionShould this be performed [...] Chery Verified Date/Time: 12/25/2018 07:25:40 Reading Location: [facility] Radiology Reading Room POCT-GLUCOSE [id number] 22:06:00 Test Item Value Reference Range Interpretation Comments POC-GLUCOSE METER 102 mg/dL 70-110 TESTED AT [place] [address] ([facility]) (test code = FOSTER Paul [place] 1538) [address] POCT-GLUCOSE [id number] 18:44:00 Test Item Value Reference Range Interpretation Comments POC-GLUCOSE METER 100 mg/dL 70-110 TESTED AT [place] [address] ([facility]) (test code = [facility] Humberto [place] 1538) [address] POCT-GLUCOSE [id number] 14:54:00 Test Item Value Reference Range Interpretation Comments POC-GLUCOSE METER 103 mg/dL 70-110 TESTED AT [place] [address] ([facility]) (test code = [facility] Humberto [facility] 1538) [address] [id number] 08:07:00 Test Item Value Reference Range Interpretation Comments FERRITIN ([facility]) (test code = 2044 ng/mL 5-275 H 361) POCT-GLUCOSE [id number] 07:57:00 Test Item Value Reference Range Interpretation Comments POC-GLUCOSE METER 76 mg/dL 70-110 TESTED AT [place] [address] ([facility]) (test code = [facility] Humberto [facility] [address] 1538) RAD, CHEST, 1 VIEW, NON [id number] 07:57:00Reason for exam:->Post opShould this be performed [...] MDReport Verified Date/Time: 12/24/2018 07:57:06 Reading Location: [facility] Radiology Reading Room CBC (HEMOGRAM ONLY) 2018-12-24 [...] H (test code = 413) BASIC METABOLIC [id number] 07:14:00 Test Item Value Reference Range Interpretation [...] S NOT APPLICABLE FOR DIALYSIS PATIEN TS. [id number] 07:08:00 Test Item Value Reference Range Interpretation [...] % 20-55 (test code = 2590) PROTHROMBIN [id number] 07:05:00 Test Item Value Reference Range Interpretation Comments PROTIME (BEAKER) (test code = 38.7 seconds 11.7-14.7 H 759) INR (BEAKER) (test code = 370) 3.9 <=5.9 RECOMMENDED COUMADIN/WARFARIN INR THERAPY RANGESSTANDARD DOSE: 2.0 - 3.0 Includes: PROPHYLAXIS forvenous thrombosis, systemic embolization; TREATMENT for venous thrombosis and/or pulmonary embolus.HIGH RISK: Target INR is 2.5-3.5 for patients with mechanical heart valves.POCT-GLUCOSE [id number] 00:26:00 Test Item Value Reference Range Interpretation Comments POC-GLUCOSE METER 86 mg/dL 70-110 TESTED AT [place] [address] [facility] (test code = [facility] [address] 1538) POCT-GLUCOSE [id number] 00:26:00 Test Item Value Reference Range Interpretation Comments POC-GLUCOSE METER 137 mg/dL 70-110 H TESTED AT [place] [address] ([facility] (test code = [facility] 1538) [address] POCT-GLUCOSE [id number] 16:07:00 Test Item Value Reference Range Interpretation Comments POC-GLUCOSE METER 72 mg/dL 70-110 TESTED AT [place] [address] ([facility]) (test code = [facility] [address] 1538) POCT-GLUCOSE [id number] 16:07:00 Test Item Value Reference Range Interpretation Comments POC-GLUCOSE METER 61 mg/dL 70-[address] [facility] 6720 (BEAKER) (test code = FOSTER Paul [facility] [address] 1538) POCT-GLUCOSE [id number] 11:27:00 Test Item Value Reference Range Interpretation Comments POC-GLUCOSE METER 82 mg/dL 70-[address] [facility] 6720 (BEAKER) (test code = FOSTER Paul [facility] [address] 1538) POCT-GLUCOSE [id number] 10:32:00 Test Item Value Reference Range Interpretation Comments POC-GLUCOSE METER 43 mg/dL 70-[address] [facility] 6720 (BEAKER) (test code = FOSTER Pual [facility] [address] 1538) BASIC METABOLIC [id number] 07:28:00 Test Item Value Reference Range Interpretation [...] S NOT APPLICABLE FOR DIALYSIS PATIEN TS. [id number] 07:24:00 Test Item Value Reference Range Interpretation Comments MAGNESIUM (BEAKER) 2.0 mg/dL 1.6-2.6 Specimen slightly (test code = 627) hemolyzed [id number] 07:24:00 Test Item Value Reference Range Interpretation Comments PHOSPHORUS (BEAK[facility]) 4.4 mg/dL 2.3-4.7 Specimen slightly (test code = 604) hemolyzed PROTHROMBIN TIME/[id number] 07:20:00 Test Item Value Reference Range Interpretation [...] = 413) RAD, CHEST, 1 VIEW, NON [id number] 04:22:00Reason for exam:->Post opShould this be performed [...] MDReport Verified Date/Time: 12/23/2018 04:22:43 Reading Location: [address] [place] Body Reading Room POCT-GLUCOSE [id number] 03:01:00 Test Item Value Reference Range Interpretation Comments POC-GLUCOSE METER 85 mg/dL 70-[address] [facility] 6720 ([facility]) (test code = [facility] [address] 1538) BASIC METABOLIC [id number] 18:52:00 Test Item Value Reference Range Interpretation [...] H (BEAKER) (test code = 413) ANAEROBIC [id number] 17:00:00 Test Item Value Reference Range Interpretation Comments CULTURE (BEAKER) (test No anaerobes isolated code = 1095) RAD, CHEST, 1 VIEW, NON [id number] 07:44:00Reason for exam:->Post opShould this be performed [...] Arteaga Verified Date/Time: 12/22/2018 07:44:12 Reading Location: [facility] Radiology Reading Room PROTHROMBIN [id number] 04:31:00 Test Item Value Reference Range Interpretation Comments PROTIME ([facility]) (test code = 63.0 seconds 11.7-14.7 H 759) INR ([facility]) (test code = 370) 7.6 <=5.9 RECOMMENDED COUMADIN/WARFARIN INR THERAPY RANGESSTANDARD DOSE: 2.0 - 3.0 Includes: PROPHYLAXIS forvenous thrombosis, systemic embolization; TREATMENT for venous thrombosis and/or pulmonary embolus.HIGH RISK: Target INR is 2.5-3.5 for patients with mechanical heart valves.While on warfarin.POCT-GLUCOSE METER 2018-12-21 22:29:00 Test Item Value Reference Range Interpretation Comments POC-GLUCOSE METER 141 mg/dL 70-110 H TESTED AT [place] [address] ([facility]) (test code = FOSTER Paul [facility] 1538) [address] POCT-GLUCOSE [id number] 13:22:00 Test Item Value Reference Range Interpretation Comments POC-GLUCOSE METER 100 mg/dL 70-110 TESTED AT [place] [address] ([facility]) (test code = MARIA GMO Humberto [facility] 1538) [address] RAD, CHEST, 1 VIEW, NON [id number] 08:01:00Reason for exam:->Post opShould this be performed [...] MDReport Verified Date/Time: 12/21/2018 08:01:46 Reading Location: [facility] C013V Neuro Reading Room PROTHROMBIN [id number] 05:30:00 Test Item Value Reference Range Interpretation Comments PROTIME ([facility]) (test code = 39.1 seconds 11.7-14.7 H 759) INR ([facility]) (test code = 370) 4.0 <=5.9 RECOMMENDED COUMADIN/WARFARIN INR THERAPY RANGESSTANDARD DOSE: 2.0 - 3.0 Includes: PROPHYLAXIS forvenous thrombosis, systemic embolization; TREATMENT for venous thrombosis and/or pulmonary embolus.HIGH RISK: Target INR is 2.5-3.5 for patients with mechanical heart valves.While on warfarin.POCT-GLUCOSE METER 2018-12-20 22:10:00 Test Item Value Reference Range Interpretation Comments POC-GLUCOSE METER 98 mg/dL 70-110 TESTED AT [place] [address] ([facility]) (test code = FOSTER Paul [facility] [address] 1538) POCT-GLUCOSE [id number] 17:40:00 Test Item Value Reference Range Interpretation Comments POC-GLUCOSE METER 91 mg/dL 70-110 TESTED AT [place] [address] ([facility]) (test code = FOSTER Paul [facility] [address] 1538) POCT-GLUCOSE [id number] 13:13:00 Test Item Value Reference Range Interpretation Comments POC-GLUCOSE METER 73 mg/dL 70-110 TESTED AT [place] [address] ([facility]) (test code = FOSTER Paul [facility] [address] 1538) SURGICALLY OBTAINED CULTURE + GRAM [id number] 08:41:00 Test Item Value Reference Range Interpretation Comments CULTURE ([facility]) (test No growth code = 1095) GRAM STAIN RESULT No White blood cells (BEAKER) (test code = seen 1123) GRAM STAIN RESULT No organisms seen (AKER) (test code = 44375) RAD, CHEST, 1 VIEW, NON [id number] 08:20:00Reason for exam:->Post opShould this be performed [...] MDReport Verified Date/Time: 12/20/2018 08:20:58 Reading Location: [address] Neuro Reading Room BASIC METABOLIC [id number] 08:09:00 Test Item Value Reference Range Interpretation [...] S NOT APPLICABLE FOR DIALYSIS PATIEN TS. [id number] 08:00:00 Test Item Value Reference Range Interpretation Comments PHOSPHORUS (BEAKER) (test code = 4.5 mg/dL 2.3-4.7 604) CALCIUM, [id number] 07:20:00 Test Item Value Reference Range Interpretation Comments CALCIUM IONIZED (BEAKER) (test 1.04 mmol/L 1.12-1.27 L code = 698) PH, BLOOD (BEAKER) (test code = 7.35 1810) PROTHROMBIN [id number] 07:04:00 Test Item Value Reference Range Interpretation [...] 0-0 (BEAKER) (test code = 413) POCT-GLUCOSE [id number] 22:00:00 Test Item Value Reference Range Interpretation Comments POC-GLUCOSE METER 188 mg/dL 70-[address] [facility] 67 ([facility]) (test code = FOSTER Paul [place] 1538) [address] TISSUE [id number] 18:15:00Surgical Pathology Report Case: [id number] Authorizing Provider: Moiz Vargas, Collected: 12/17/2018 0950 Ordering Location: [facility] Received: 12/17/2018 1129 PERIOPERATIVE SERVICES Pathologist: Kwan Perla MD Specimen: Pleural, Right, RIGHT PLEURAL PEEL PLEURA, RIGHT, DECORTICATION- MILD CHRONIC INFLAMMATION AND GRANULATION TISSUE- ORGANIZING BLOOD CLOTS- NO MALIGNANT CELLS IDENTIFIED Signing Pathologist Direct Phone Line: [phone] signed by Kwan Perla MD on 12/19/2018 at 6:15 PMCorrelation with microbiology cultures is recommended.70163Kegwegf effusion and other conditions classified elsewhereRight pleural peelThe specimen is received in a formalin-filled container labeled with the patient's information and labeled "right pleural peel" and consists of multiple fragments of porter-red, dusky, firm tissue measuring 6 x 5 x 0.4 cm in aggregate. Refrigerated Cargo Clerk sections are submitted in A1-A3. CG/ew Performed.POCT-GLUCOSE [id number] 17:11:00 Test Item Value Reference Range Interpretation Comments POC-GLUCOSE METER 126 mg/dL 70-[address] [facility] 6720 ([facility]) (test code = FOSTER Paul [facility] 1538) [address] POCT-GLUCOSE [id number] 12:57:00 Test Item Value Reference Range Interpretation Comments POC-GLUCOSE METER 143 mg/dL 70-[address] [facility] 6720 ([facility]) (test code = FOSTER Paul [facility] 1538) [address] POCT-GLUCOSE [id number] 07:27:00 Test Item Value Reference Range Interpretation Comments POC-GLUCOSE METER 141 mg/dL 70-110 H TESTED AT [place] [address] ([facility]) (test code = FOSTER Paul [facility] 1538) [address] CALCIUM, [id number] 06:29:00 Test Item Value Reference Range Interpretation Comments CALCIUM IONIZED ([facility]) (test 1.00 mmol/L 1.12-1.27 L code = 698) PH, BLOOD (BEAKER) (test code = 7.45 1810) RAD, CHEST, 1 VIEW, NON [id number] 04:54:00Reason for exam:->Post opShould this be performed [...] Tayloreport Verified Date/Time: 2018 04:54:49 Reading Location: [place] [address] Body Reading Room BASIC METABOLIC [id number] 04:19:00 Test Item Value Reference Range Interpretation [...] S NOT APPLICABLE FOR DIALYSIS PATIEN TS. [id number] 04:16:00 Test Item Value Reference Range Interpretation Comments PHOSPHORUS (BEAKER) (test code = 3.4 mg/dL 2.3-4.7 604) PROTHROMBIN [id number] 04:06:00 Test Item Value Reference Range Interpretation [...] BLOOD CELLS 0 /100 WBC 0-0 ([facility]) (test code = 413) POCT-GLUCOSE [id number] 22:11:00 Test Item Value Reference Range Interpretation Comments POC-GLUCOSE METER 149 mg/dL 70-110 H TESTED AT [place] [address] ([facility]) (test code = [facility] 1538) [address] POCT-GLUCOSE [id number] 17:52:00 Test Item Value Reference Range Interpretation Comments POC-GLUCOSE METER 122 mg/dL 70-110 H TESTED AT [place] [address] ([facility]) (test code = [facility] 1538) [address] POCT-GLUCOSE [id number] 14:26:00 Test Item Value Reference Range Interpretation Comments POC-GLUCOSE METER 98 mg/dL 70-110 TESTED AT [place] [address] ([facility]) (test code = [facility] [address] 1538) HEMOGLOBIN AND [id number] 12:47:00 Test Item Value Reference Range Interpretation Comments HEMOGLOBIN ([facility]) (test code = 9.2 GM/DL 13.7-17.5 L 410) HEMATOCRIT ([facility]) (test code = 28.3 % 40.1-51.0 L 411) POCT-GLUCOSE [id number] 09:38:00 Test Item Value Reference Range Interpretation Comments POC-GLUCOSE METER 73 mg/dL 70-110 TESTED AT [place] [address] ([facility]) (test code = [facility] [address] 1538) PROTEIN ELECTROPHORESIS, [id number] 09:21:00 Test Item Value Reference Range Interpretation Comments ALBUMIN FRACTION 3.2 g/dL 3.5-5.5 L (AKER) (test code = 405) ALPHA 1 FRACTION 0.4 g/dL 0.2-0.4 (BEAKER) (test code = 389) ALPHA 2 FRACTION 0.6 g/dL 0.5-0.9 (BEAKER) (test code = 390) BETA FRACTION (BEAKER) 1.1 g/dL 0.6-1.1 (test code = 392) GAMMA GLOBULIN 2.2 g/dL 0.7-1.7 H FRACTION (AKER) (test code = 391) INTERPRETATION-119 Mild polyclonal (BEAKER) (test code = elevation of gamma 2615) fraction, suggesting component of chronic inflammation. No monoclonal bands detected. [id number] Amanda De Jesus MD (BEAKER) (test code = (electronic signature) 6084) PROTEIN TOTAL SERUM, 7.5 gm/dL 6.0-8.3 SPEP (BEAKER) (test code = 2660) RAD, CHEST, 1 VIEW, NON [id number] 06:47:00Reason for exam:->Post opShould this be performed [...] chest wall and lower neck. Signed: Raz Taylorort Verified Date/Time: 12/18/2018 06:47:21 Reading Location: [facility] C013Y CT Body Reading Room [id number] 06:20:00 Test Item Value Reference Range Interpretation Comments MAGNESIUM (BEAKER) (test code = 2.2 mg/dL 1.6-2.6 627) CALCIUM, [id number] 06:00:00 Test Item Value Reference Range Interpretation Comments CALCIUM IONIZED (BEAKER) (test 1.09 mmol/L 1.12-1.27 L code = 698) PH, BLOOD (BEAKER) (test code = 7.34 1810) BASIC METABOLIC [id number] 05:07:00 Test Item Value Reference Range Interpretation [...] S NOT APPLICABLE FOR DIALYSIS PATIEN TS. [id number] 04:54:00 Test Item Value Reference Range Interpretation Comments PHOSPHORUS (BEAKER) (test code = 6.3 mg/dL 2.3-4.7 H 604) HEPATIC FUNCTION [id number] 04:54:00 Test Item Value Reference Range Interpretation [...] (test code = 23 U/L 6-55 347) [id number] 04:51:00 Test Item Value Reference Range Interpretation Comments PARTIAL THROMBOPLASTIN TIME 38.6 seconds 22.5-36.0 H (BEAKER) (test code = 760) PROTHROMBIN [id number] 04:50:00 Test Item Value Reference Range Interpretation Comments PROTIME (BEAKER) (test code = 16.0 seconds 11.7-14.7 H 759) INR (BEAKER) (test code = 370) 1.3 <=5.9 RECOMMENDED COUMADIN/WARFARIN INR THERAPY RANGESSTANDARD DOSE: 2.0 - 3.0 Includes: PROPHYLAXIS forvenous thrombosis, systemic embolization; TREATMENT for venous thrombosis and/or pulmonary embolus.HIGH RISK: Target INR is 2.5-3.5 for patients with mechanical heart valves.[id number] 04:50:00 Test Item Value Reference Range Interpretation Comments FIBRINOGEN LEVEL (BEAKER) (test 494 mg/dl 225-434 H code = 658) PLATELET [id number] 04:38:00 Test Item Value Reference Range Interpretation [...] WBC 0-0 (BEAKER) (test code = 413) [id number] 18:48:00 Test Item Value Reference Range Interpretation Comments MAGNESIUM (BEAKER) (test code = 2.4 mg/dL 1.6-2.6 627) POCT-GLUCOSE [id number] 18:42:00 Test Item Value Reference Range Interpretation Comments POC-GLUCOSE METER 121 mg/dL 70-[address] [facility] 6720 (BEAKER) (test code = [place] 1538) [address] HEMOGLOBIN AND [id number] 18:37:00 Test Item Value Reference Range Interpretation Comments HEMOGLOBIN (BEAKER) (test code = 10.0 GM/DL 13.7-17.5 L 410) HEMATOCRIT (BEAKER) (test code = 31.3 % 40.1-51.0 L 411) RAD, CHEST, 1 VIEW, NON [id number] 13:28:00Reason for exam:->post opShould this be performed [...] MDReport Verified Date/Time: 12/17/2018 13:28:23 Reading Location: [facility] [id number] 13:03:00 Test Item Value Reference Range Interpretation [...] S NOT APPLICABLE FOR DIALYSIS PATIEN TS. [id number] 12:53:00 Test Item Value Reference Range Interpretation Comments PHOSPHORUS (BEAKER) (test code = 4.3 mg/dL 2.3-4.7 604) [id number] 12:53:00 Test Item Value Reference Range Interpretation Comments MAGNESIUM (BEAKER) (test code = 1.5 mg/dL 1.6-2.6 L 627) LACTIC ACID, [id number] 12:50:00 Test Item Value Reference Range Interpretation Comments LACTATE BLOOD ARTERIAL (2) 0.9 mmol/L 0.5-2.2 (BEAKER) (test code = 2874) CBC W/PLT COUNT & AUTO [id number] 12:47:00 Test Item Value Reference Range Interpretation [...] PERCENT (BEAKER) (test code = 2801) CALCIUM, [id number] 12:26:00 Test Item Value Reference Range Interpretation Comments CALCIUM IONIZED (BEAKER) (test 1.07 mmol/L 1.12-1.27 L code = 698) PH, BLOOD (BEAKER) (test code = 7.38 1810) BLOOD GAS, [id number] 12:26:00 Test Item Value Reference Range Interpretation [...] (test code = 1819) 40.0 % CALCIUM, [id number] 10:25:00 Test Item Value Reference Range Interpretation Comments CALCIUM IONIZED (BEAKER) (test 1.09 mmol/L 1.12-1.27 L code = 698) PH, BLOOD (BEAKER) (test code = 7.45 1810) BLOOD GAS, [id number] 10:22:00 Test Item Value Reference Range Interpretation [...] code = 1819) 96.0 % SODIUM NA-STAT [id number] 10:22:00 Test Item Value Reference Range Interpretation Comments SODIUM (BEAKER) (test code = 381) 133 meq/L 135-148 L GLUCOSE-STAT [id number] 10:22:00 Test Item Value Reference Range Interpretation Comments GLUCOSE RANDOM (BEAKER) (test code 116 mg/dL 70-110 H = 652) HGB/HCT (H&H) - STAT [id number] 10:22:00 Test Item Value Reference Range Interpretation Comments HEMOGLOBIN (BEAKER) (test code = 8.9 g/dL 13.0-16.8 L 410) HEMATOCRIT (BEAKER) (test code = 26.0 % 40.0-50.0 L 411) POTASSIUM-STAT [id number] 10:20:00 Test Item Value Reference Range Interpretation Comments POTASSIUM (BEAKER) (test code = 4.0 meq/L 3.6-5.5 379) HEMOGLOBIN [id number] 09:33:00 Test Item Value Reference Range Interpretation Comments HEMOGLOBIN A1C (BEAKER) (test code = 5.9 % 4.3-6.1 368) BLOOD GAS, [id number] 09:27:00 Test Item Value Reference Range Interpretation [...] code = 1819) 100.0 % SODIUM NA-STAT [id number] 09:27:00 Test Item Value Reference Range Interpretation Comments SODIUM (BEAKER) (test code = 381) 133 meq/L 135-148 L HGB/HCT (H&H) - STAT [id number] 09:27:00 Test Item Value Reference Range Interpretation Comments HEMOGLOBIN (BEAKER) (test code = 9.4 g/dL 13.0-16.8 L 410) HEMATOCRIT (BEAKER) (test code = 28.0 % 40.0-50.0 L 411) GLUCOSE-STAT [id number] 09:26:00 Test Item Value Reference Range Interpretation Comments GLUCOSE RANDOM (BEAKER) (test code = 97 mg/dL 70-110 652) POTASSIUM-STAT [id number] 09:26:00 Test Item Value Reference Range Interpretation Comments POTASSIUM (BEAKER) (test code = 3.9 meq/L 3.6-5.5 379) CALCIUM, [id number] 09:26:00 Test Item Value Reference Range Interpretation Comments CALCIUM IONIZED (BEAKER) (test 1.17 mmol/L 1.12-1.27 code = 698) PH, BLOOD (BEAKER) (test code = 7.44 1810) BLOOD GAS, [id number] 08:32:00 Test Item Value Reference Range Interpretation [...] code = 1819) 96.0 % SODIUM NA-STAT [id number] 08:32:00 Test Item Value Reference Range Interpretation Comments SODIUM (BEAKER) (test code = 381) 133 meq/L 135-148 L GLUCOSE-STAT [id number] 08:32:00 Test Item Value Reference Range Interpretation Comments GLUCOSE RANDOM (BEAKER) (test code 113 mg/dL 70-110 H = 652) HGB/HCT (H&H) - STAT [id number] 08:32:00 Test Item Value Reference Range Interpretation Comments HEMOGLOBIN (BEAKER) (test code = 9.9 g/dL 13.0-16.8 L 410) HEMATOCRIT (BEAKER) (test code = 29.0 % 40.0-50.0 L 411) CALCIUM, [id number] 08:31:00 Test Item Value Reference Range Interpretation Comments CALCIUM IONIZED (BEAKER) (test 1.05 mmol/L 1.12-1.27 L code = 698) PH, BLOOD (BEAKER) (test code = 7.49 1810) POTASSIUM-STAT [id number] 08:29:00 Test Item Value Reference Range Interpretation Comments POTASSIUM (BEAKER) (test code = 3.6 meq/L 3.6-5.5 379) POCT-GLUCOSE [id number] 06:20:00 Test Item Value Reference Range Interpretation Comments POC-GLUCOSE METER 99 mg/dL 70-[address] [facility] 6720 ([facility]) (test [facility] = [facility] [address] 1538) [id number] 05:05:00 Test Item Value Reference Range Interpretation Comments PARTIAL THROMBOPLASTIN TIME 75.6 seconds 22.5-36.0 H ([facility]) (test code = 760) LIPID [id number] 05:04:00 Test Item Value Reference Range Interpretation Comments TRIGLYCERIDES ([facility]) (test code = 53 mg/dL 540) CHOLESTEROL ([facility]) (test code = 122 mg/dL 631) HDL CHOLESTEROL ([facility]) (test code 58 mg/dL = 976) LDL CHOLESTEROL CALCULATED ([facility]) 53 mg/dL (test code = 633) Triglyceride Reference Range: Low Risk <150 Borderline 150-199 High Risk 200-499 Very High Risk >=500Cholesterol Reference Range: Low Risk <200 Borderline 200-239 High Risk >240HDL Cholesterol Reference Range: Low Risk >=60 High Risk <40LDL Cholesterol Reference Range: Optimal <100 Near Optimal 100-129 Borderline 130-159 High 160-189 Very High >=190PROTHROMBIN [id number] 05:03:00 Test Item Value Reference Range Interpretation Comments PROTIME ([facility]) (test code = 15.4 seconds 11.7-14.7 H 759) INR ([facility]) (test code = 370) 1.2 <=5.9 RECOMMENDED COUMADIN/WARFARIN INR THERAPY RANGESSTANDARD DOSE: 2.0 - 3.0 Includes: PROPHYLAXIS forvenous thrombosis, systemic embolization; TREATMENT for venous thrombosis and/or pulmonary embolus.HIGH RISK: Target INR is 2.5-3.5 for patients with mechanical heart valves.POCT-GLUCOSE [id number] 21:17:00 Test Item Value Reference Range Interpretation Comments POC-GLUCOSE METER 223 mg/dL 70-[address] [facility] 6720 ([facility]) (test code = [facility] 1538) [address] COMPREHENSIVE METABOLIC [id number] 18:57:00 Test Item Value Reference Range Interpretation Comments TOTAL PROTEIN 7.8 gm/dL 6.0-8.3 ([facility]) (test code = 770) ALBUMIN (BEAKER) 3.1 [...] S NOT APPLICABLE FOR DIALYSIS PATIEN TS. [id number] 18:46:00 Test Item Value Reference Range Interpretation Comments MAGNESIUM (BEAKER) (test code = 1.8 mg/dL 1.6-2.6 627) CBC W/PLT COUNT & AUTO [id number] 18:10:00 Test Item Value Reference Range Interpretation [...] % 0-1 PERCENT (BEAKER) (test code = 2805) POCT-GLUCOSE [id number] 17:34:00 Test Item Value Reference Range Interpretation Comments POC-GLUCOSE METER 169 mg/dL 70-[address] [facility] 6720 (BEAKER) (test code = FOSTER [place] 1538) [address] HEPARIN [id number] 13:40:00 Test Item Value Reference Range Interpretation Comments HEPARIN ANTIBODY (BEAKER) (test code Negative Negative = 646) HEPARIN ANTIBODY OD ([facility]) (test 0.105 <0.400 code = 8719) 4T TOTAL SCORE ([facility]) (test code = 4 1339) Probability of HIT based on scoring system: 6-8 = High probability; 4-5 = intermediate probability;0-3 = low probabilityPOCT-GLUCOSE [id number] 12:51:00 Test Item Value Reference Range Interpretation Comments POC-GLUCOSE METER 66 mg/dL 70-110 L Notified Humberto Yeager MD/TESTED AT ([facility]) (test code = [place] [address] JOSE ANTONIO 1538) [facility] 7703 0 POCT-GLUCOSE [id number] 07:54:00 Test Item Value Reference Range Interpretation Comments POC-GLUCOSE METER 75 mg/dL 70-110 TESTED AT [place] [address] ([facility]) (test code = [facility] Humberto [facility] [address] 1538) [id number] 04:21:00 Test Item Value Reference Range Interpretation Comments PROTIME ([facility]) (test code = 15.4 seconds 11.7-14.7 H 759) INR ([facility]) (test code = 370) 1.2 <=5.9 PARTIAL THROMBOPLASTIN TIME 74.0 seconds 22.5-36.0 H ([facility]) (test code = 760) RECOMMENDED COUMADIN/WARFARIN INR THERAPY RANGESSTANDARD DOSE: 2.0 - 3.0 Includes: PROPHYLAXIS forvenous thrombosis, systemic embolization; TREATMENT for venous thrombosis and/or pulmonary embolus.HIGH RISK: Target INR is 2.5-3.5 for patients with mechanical heart valves.[id number] 04:20:00 Test Item Value Reference Range Interpretation Comments FIBRINOGEN LEVEL ([facility]) (test 525 mg/dl 225-434 H code = 658) POCT-GLUCOSE [id number] 21:25:00 Test Item Value Reference Range Interpretation Comments POC-GLUCOSE METER 129 mg/dL 70-110 H TESTED AT [place] [address] ([facility]) (test code = FOSTRE Paul [facility] 1538) [address] [id number] 18:23:00 Test Item Value Reference Range Interpretation Comments PARTIAL THROMBOPLASTIN TIME 72.0 seconds 22.5-36.0 H ([facility]) (test code = 760) POCT-GLUCOSE [id number] 16:20:00 Test Item Value Reference Range Interpretation Comments POC-GLUCOSE METER 142 mg/dL 70-110 H TESTED AT [place] [address] ([facility]) (test code = FOSTER Paul [facility] 1538) [address] POCT-GLUCOSE [id number] 13:05:00 Test Item Value Reference Range Interpretation Comments POC-GLUCOSE METER 86 mg/dL 70-110 TESTED AT [place] [address] ([facility]) (test code = [facility] Humberto [facility] [address] 1538) [id number] 11:19:00 Test Item Value Reference Range Interpretation Comments PARTIAL THROMBOPLASTIN TIME 72.3 seconds 22.5-36.0 H ([facility]) (test code = 760) POCT-GLUCOSE [id number] 07:56:00 Test Item Value Reference Range Interpretation Comments POC-GLUCOSE METER 87 mg/dL 70-110 TESTED AT [place] [address] ([facility]) (test code = [facility] Humberto [facility] [address] 1538) [id number] 03:13:00 Test Item Value Reference Range Interpretation Comments PARTIAL THROMBOPLASTIN TIME 97.1 seconds 22.5-36.0 H ([facility]) (test code = 760) PROTHROMBIN [id number] 03:11:00 Test Item Value Reference Range Interpretation Comments PROTIME ([facility]) (test code = 16.5 seconds 11.7-14.7 H 759) INR ([facility]) (test code = 370) 1.3 <=5.9 RECOMMENDED COUMADIN/WARFARIN INR THERAPY RANGESSTANDARD DOSE: 2.0 - 3.0 Includes: PROPHYLAXIS forvenous thrombosis, systemic embolization; TREATMENT for venous thrombosis and/or pulmonary embolus.HIGH RISK: Target INR is 2.5-3.5 for patients with mechanical heart valves.CBC (HEMOGRAM ONLY)2018-12-15 02:42:00 Test Item Value Reference Range Interpretation Comments WHITE BLOOD CELL COUNT ([facility]) 6.9 K/ L 3.5-10.5 (test code = 775) RED BLOOD CELL COUNT ([facility]) 3.13 M/ L 4.63-6.08 L (test code = 761) HEMOGLOBIN ([facility]) (test code = 10.6 GM/DL 13.7-17.5 L [...] WBC 0-0 (test code = 413) POCT-GLUCOSE [id number] 21:26:00 Test Item Value Reference Range Interpretation Comments POC-GLUCOSE METER 121 mg/dL 70-110 H TESTED AT [place] [address] ([facility]) (test code = FOSTER Paul [facility] 1538) [address] [id number] 19:05:00 Test Item Value Reference Range Interpretation Comments PARTIAL THROMBOPLASTIN TIME 64.0 seconds 22.5-36.0 H ([facility]) (test code = 760) POCT-GLUCOSE [id number] 17:24:00 Test Item Value Reference Range Interpretation Comments POC-GLUCOSE METER 131 mg/dL 70-110 H TESTED AT [place] [address] ([facility]) (test code = FOSTER Paul [place] 1538) [address] [id number] 13:32:00 Test Item Value Reference Range Interpretation Comments PARTIAL THROMBOPLASTIN TIME 81.4 seconds 22.5-36.0 H ([facility]) (test code = 760) POCT-GLUCOSE [id number] 12:32:00 Test Item Value Reference Range Interpretation Comments POC-GLUCOSE METER 102 mg/dL 70-110 TESTED AT [place] [address] ([facility]) (test code = [place] 1538) [address] POCT-GLUCOSE [id number] 07:07:00 Test Item Value Reference Range Interpretation Comments POC-GLUCOSE METER 113 mg/dL 70-[address] [facility] 67 ([facility]) (test code = [facility] H[place]to [facility] 1538) [id number] 05:47:00 Test Item Value Reference Range Interpretation Comments PARTIAL THROMBOPLASTIN TIME 91.8 seconds 22.5-36.0 H ([facility]) (test code = 760) POCT-GLUCOSE [id number] 21:27:00 Test Item Value Reference Range Interpretation Comments POC-GLUCOSE METER 90 mg/dL 70-110 TESTED AT [place] [address] ([facility]) (test code = [facility] [address] 1538) POCT-GLUCOSE [id number] 17:46:00 Test Item Value Reference Range Interpretation Comments POC-GLUCOSE METER 175 mg/dL 70-110 H TESTED AT [place] [address] ([facility]) (test code = [facility] 1538) [address] POCT-GLUCOSE [id number] 17:30:00 Test Item Value Reference Range Interpretation Comments POC-GLUCOSE METER 84 mg/dL 70-110 TESTED AT [place] [address] ([facility]) (test code = [facility] [address]38) [id number] 13:20:00 Test Item Value Reference Range Interpretation Comments PARTIAL THROMBOPLASTIN TIME 68.4 seconds 22.5-36.0 H ([facility]) (test code = 760) BASIC METABOLIC [id number] 10:36:00 Test Item Value Reference Range Interpretation [...] mg/dL 8.4-10.2 (test code = 697) EGFR ([facility]) (test 11 mL/min/1.73 ESTIMA JAYLA GFR IS code = 1092) sq m NOT ACCURATE CREATININE CLEARANCE IN PREDICTING GLOMERULAR FILTRATION RATE . ESTIMATED GFR I S NOT APPLICABLE FOR DIALYSIS PATIEN TS. POCT-GLUCOSE [id number] 07:43:00 Test Item Value Reference Range Interpretation Comments POC-GLUCOSE METER 84 mg/dL 70-[address] [facility] 6720 ([facility]) (test code = [place] [address] 1538) [id number] 06:52:00 Test Item Value Reference Range Interpretation Comments PARTIAL THROMBOPLASTIN TIME 76.5 seconds 22.5-36.0 H ([facility]) (test code = 760) PROTHROMBIN [id number] 06:51:00 Test Item Value Reference Range Interpretation Comments PROTIME ([facility]) (test code = 16.5 seconds 11.7-14.7 H 759) INR ([facility]) (test code = 370) 1.3 <=5.9 [...] 0-1 PERCENT (BEAKER) (test code = 2801) [id number] 00:11:00 Test Item Value Reference Range Interpretation Comments PARTIAL THROMBOPLASTIN TIME 59.7 seconds 22.5-36.0 H (BEAKER) (test code = 760) POCT-GLUCOSE [id number] 21:33:00 Test Item Value Reference Range Interpretation Comments POC-GLUCOSE METER 113 mg/dL 70-[address] [facility] 67 ([facility]) (test code = [place] 1538) [address] POCT-GLUCOSE [id number] 18:08:00 Test Item Value Reference Range Interpretation Comments POC-GLUCOSE METER 128 mg/dL 70-[address] [facility] 6720 ([facility]) (test code = [place] 1538) [address] [id number] 16:51:00 Test Item Value Reference Range Interpretation Comments PARTIAL THROMBOPLASTIN TIME 71.6 seconds 22.5-36.0 H (BEAKER) (test code = 760) POCT-GLUCOSE [id number] 12:39:00 Test Item Value Reference Range Interpretation Comments POC-GLUCOSE METER 124 mg/dL 70-[address] [facility] 6720 (BEAKER) (test code = [facility] 1538) [address] [id number] 09:07:00 Test Item Value Reference Range Interpretation Comments PARTIAL THROMBOPLASTIN TIME 96.6 seconds 22.5-36.0 H (BEAKER) (test code = 760) POCT-GLUCOSE [id number] 07:48:00 Test Item Value Reference Range Interpretation Comments POC-GLUCOSE METER 105 mg/dL 70-[address] [facility] 6720 (BEAKER) (test code = [facility] 1538) [address] BASIC METABOLIC [id number] 01:54:00 Test Item Value Reference Range Interpretation [...] S NOT APPLICABLE FOR DIALYSIS PATIEN TS. [id number] 01:37:00 Test Item Value Reference Range Interpretation Comments PARTIAL THROMBOPLASTIN TIME 53.4 seconds 22.5-36.0 H (BEAKER) (test code = 760) PROTHROMBIN TIME/[id number] 01:36:00 Test Item Value Reference Range Interpretation [...] PERCENT (BEAKER) (test code = 2801) POCT-GLUCOSE [id number] 21:57:00 Test Item Value Reference Range Interpretation Comments POC-GLUCOSE METER 165 mg/dL 70-110 H TESTED AT [place] [address] ([facility]) (test code = FOSTER Paul [facility] 1538) [address] [id number] 18:46:00 Test Item Value Reference Range Interpretation Comments PARTIAL THROMBOPLASTIN TIME 39.0 seconds 22.5-36.0 H ([facility]) (test code = 760) POCT-GLUCOSE [id number] 17:51:00 Test Item Value Reference Range Interpretation Comments POC-GLUCOSE METER 157 mg/dL 70-110 H TESTED AT [place] [address] ([facility]) (test code = [place]OSTER Paul [facility] 1538) [address] POCT-GLUCOSE [id number] 17:09:00 Test Item Value Reference Range Interpretation Comments POC-GLUCOSE METER 162 mg/dL 70-110 H TESTED AT [place] [address] ([facility]) (test code = [place]OSTER Paul [facility] 1538) [address] [id number] 16:07:00 Test Item Value Reference Range Interpretation Comments PARTIAL THROMBOPLASTIN TIME 117.0 seconds 22.5-36.0 H ([facility]) (test code = 760) POCT-GLUCOSE [id number] 13:28:00 Test Item Value Reference Range Interpretation Comments POC-GLUCOSE METER 88 mg/dL 70-110 TESTED AT [place] [address] ([facility]) (test code = [place] [address] 1538) [id number] 09:17:00 Test Item Value Reference Range Interpretation Comments PARTIAL THROMBOPLASTIN TIME 71.7 seconds 22.5-36.0 H ([facility]) (test code = 760) POCT-GLUCOSE [id number] 08:07:00 Test Item Value Reference Range Interpretation Comments POC-GLUCOSE METER 137 mg/dL 70-[address] [facility] 6720 ([facility]) (test code = [place] Paul [facility] 1538) [address] [id number] 02:27:00 Test Item Value Reference Range Interpretation Comments PARTIAL THROMBOPLASTIN TIME 62.4 seconds 22.5-36.0 H ([facility]) (test code = 760) PROTHROMBIN [id number] 02:26:00 Test Item Value Reference Range Interpretation Comments PROTIME ([facility]) (test code = 20.0 seconds 11.7-14.7 H 759) INR ([facility]) (test code = 370) 1.7 <=5.9 RECOMMENDED COUMADIN/WARFARIN INR THERAPY RANGESSTANDARD DOSE: 2.0 - 3.0 Includes: PROPHYLAXIS forvenous thrombosis, systemic embolization; TREATMENT for venous thrombosis and/or pulmonary embolus.HIGH RISK: Target INR is 2.5-3.5 for patients with mechanical heart valves.BASIC METABOLIC [id number] 02:02:00 Test Item Value Reference Range Interpretation [...] PATIEN TS. CBC W/PLT COUNT & AUTO [id number] 01:42:00 Test Item Value Reference Range Interpretation [...] GRANULOCYTES-RELATIVE 2 % 0-1 H PERCENT ([facility]) (test code = 2801) POCT-GLUCOSE [id number] 21:12:00 Test Item Value Reference Range Interpretation Comments POC-GLUCOSE METER 199 mg/dL 70-110 H TESTED AT [place] [address] ([facility]) (test code = [facility] Humberto [facility] 1538) [address] POCT-GLUCOSE [id number] 17:39:00 Test Item Value Reference Range Interpretation Comments POC-GLUCOSE METER 145 mg/dL 70-110 H TESTED AT [place] [address] ([facility]) (test code = [facility] 1538) [address] [id number] 17:33:00 Test Item Value Reference Range Interpretation Comments PARTIAL THROMBOPLASTIN TIME 47.3 seconds 22.5-36.0 H ([facility]) (test code = 760) POCT-GLUCOSE [id number] 12:53:00 Test Item Value Reference Range Interpretation Comments POC-GLUCOSE METER 203 mg/dL 70-110 H TESTED AT [place] [address] ([facility]) (test code = [facility] 1538) [address] POCT-GLUCOSE [id number] 08:28:00 Test Item Value Reference Range Interpretation Comments POC-GLUCOSE METER 98 mg/dL 70-110 TESTED AT [place] [address] ([facility]) (test code = [facility] [address] 1538) BASIC METABOLIC [id number] 05:52:00 Test Item Value Reference Range Interpretation [...] NOT APPLICABLE FOR DIALYSIS PATIEN TS. PROTHROMBIN [id number] 05:51:00 Test Item Value Reference Range Interpretation [...] PERCENT (BEAKER) (test code = 2801) POCT-GLUCOSE [id number] 20:54:00 Test Item Value Reference Range Interpretation Comments POC-GLUCOSE METER 126 mg/dL 70-110 H TESTED AT [place] [address] ([facility]) ([facility] = [facility] 1538) [address] POCT-GLUCOSE [id number] 18:47:00 Test Item Value Reference Range Interpretation Comments POC-GLUCOSE METER 70 mg/dL 70-110 TESTED AT [place] [address] ([facility]) (test code = [facility] [address] 1538) POCT-GLUCOSE [id number] 13:25:00 Test Item Value Reference Range Interpretation Comments POC-GLUCOSE METER 120 mg/dL 70-110 H TESTED AT [place] [address] ([facility]) (test code = [facility] Humberto [facility] 1538) [address] POCT-GLUCOSE [id number] 09:32:00 Test Item Value Reference Range Interpretation Comments POC-GLUCOSE METER 104 mg/dL 70-[address] [facility] 6720 (BEAKER) (test code = [place] 1538) [address] BASIC METABOLIC [id number] 05:59:00 Test Item Value Reference Range Interpretation [...] NOT APPLICABLE FOR DIALYSIS PATIEN TS. PROTHROMBIN [id number] 05:20:00 Test Item Value Reference Range Interpretation [...] PERCENT (BEAKER) (test code = 2801) POCT-GLUCOSE [id number] 21:14:00 Test Item Value Reference Range Interpretation Comments POC-GLUCOSE METER 200 mg/dL 70-[address] [facility] 6720 (BEAKER) (test code = [place] 1538) [address] POCT-GLUCOSE [id number] 17:34:00 Test Item Value Reference Range Interpretation Comments POC-GLUCOSE METER 143 mg/dL 70-[address] [facility] 67 (BEAKER) (test code = [place] Paul [facility] 1538) [address] POCT-GLUCOSE [id number] 12:04:00 Test Item Value Reference Range Interpretation Comments POC-GLUCOSE METER 160 mg/dL 70-110 H TESTED AT [place] [address] (BEAKER) (test code = FOSTER Paul [facility] 1538) [address] POCT-GLUCOSE [id number] 08:08:00 Test Item Value Reference Range Interpretation Comments POC-GLUCOSE METER 154 mg/dL 70-110 H TESTED AT [place] [address] (BEAKER) (test code = FOSTER Paul [facility] 1538) [address] BASIC METABOLIC [id number] 06:33:00 Test Item Value Reference Range Interpretation [...] S NOT APPLICABLE FOR DIALYSIS PATIEN TS. [id number] 06:01:00 Test Item Value Reference Range Interpretation Comments PARTIAL THROMBOPLASTIN TIME 117.2 seconds 22.5-36.0 H (BEAKER) (test code = 760) PROTHROMBIN [id number] 05:56:00 Test Item Value Reference Range Interpretation [...] ABSOLUTE COUNT 5.57 K/ L 1.78-5.38 H ([facility]) (test code = 670) LYMPHOCYTES ABSOLUTE COUNT 1.01 K/ L 1.32-3.57 L (BEAKER) (test code = 414) MONOCYTES ABSOLUTE COUNT (BEAKER) 0.96 K/ L 0.30-0.82 H (test code = 415) EOSINOPHILS ABSOLUTE COUNT 0.01 K/ L 0.04-0.54 L (BEAKER) (test code = 416) BASOPHILS ABSOLUTE COUNT (BEAKER) 0.01 K/ L 0.01-0.08 (test code = 417) IMMATURE GRANULOCYTES-RELATIVE 1 % 0-1 PERCENT ([facility]) (test code = 2801) POCT-GLUCOSE [id number] 21:37:00 Test Item Value Reference Range Interpretation Comments POC-GLUCOSE METER 121 mg/dL 70-110 H TESTED AT [place] [address] ([facility]) (test code = [place]ER Paul [facility] 1538) [address] POCT-GLUCOSE [id number] 19:01:00 Test Item Value Reference Range Interpretation Comments POC-GLUCOSE METER 191 mg/dL 70-110 H TESTED AT [place] [address] ([facility]) (test code = MARIA GMO Humberto [facility] 1538) [address] [id number] 18:31:00 Test Item Value Reference Range Interpretation Comments PARTIAL THROMBOPLASTIN TIME 86.2 seconds 22.5-36.0 H ([facility]) (test code = 760) POCT-GLUCOSE [id number] 13:05:00 Test Item Value Reference Range Interpretation Comments POC-GLUCOSE METER 130 mg/dL 70-110 H TESTED AT [place] [address] ([facility]) (test code = [place] [address]) [address] RAD, CHEST, 1 VIEW, NON [id number] 12:22:00Reason for exam:->pleural effusionsShould this be performed [...] MARQUEZeport Verified Date/Time: 12/07/2018 12:22:50 Reading Location: [address] Neuro Reading Room [id number] 11:39:00 Test Item Value Reference Range Interpretation Comments PARTIAL THROMBOPLASTIN TIME 100.1 seconds 22.5-36.0 H (BEAKER) (test code = 760) BODY FLUID CULTURE + GRAM [id number] 10:13:00 Test Item Value Reference Range Interpretation Comments CULTURE (BEAKER) (test No growth code = 1095) GRAM STAIN RESULT <1+ White blood cells (BEAKER) (test code = seen 1123) GRAM STAIN RESULT No organisms seen (BEAKER) (test code = 03435) POCT-GLUCOSE [id number] 08:51:00 Test Item Value Reference Range Interpretation Comments POC-GLUCOSE METER 90 mg/dL 70-[address] [facility] 6720 (BEAKER) (test code = [place] Paul [facility] [address] 1538) BASIC METABOLIC [id number] 07:31:00 Test Item Value Reference Range Interpretation [...] S NOT APPLICABLE FOR DIALYSIS PATIEN TS. [id number] 05:21:00 Test Item Value Reference Range Interpretation Comments PARTIAL THROMBOPLASTIN TIME 104.0 seconds 22.5-36.0 H (BEAKER) (test code = 760) PROTHROMBIN TIME/[id number] 04:50:00 Test Item Value Reference Range Interpretation [...] 0-1 PERCENT (BEAKER) (test code = 2801) [id number] 20:33:00 Test Item Value Reference Range Interpretation Comments PARTIAL THROMBOPLASTIN TIME 87.6 seconds 22.5-36.0 H (BEAKER) (test code = 760) POCT-GLUCOSE [id number] 19:30:00 Test Item Value Reference Range Interpretation Comments POC-GLUCOSE METER 112 mg/dL 70-110 H TESTED AT [place] [address] (BEAKER) (test code = [place]ER Paul [facility] 1538) [address] [id number] 13:55:00 Test Item Value Reference Range Interpretation Comments PARTIAL THROMBOPLASTIN TIME 85.9 seconds 22.5-36.0 H (BEAKER) (test code = 760) POCT-GLUCOSE [id number] 09:12:00 Test Item Value Reference Range Interpretation Comments POC-GLUCOSE METER 112 mg/dL 70-110 H [facility] AT [place] [address] [facility] (test code = [facility] Humberto [facility] 1538) [address] BASIC METABOLIC [id number] 08:53:00 Test Item Value Reference Range Interpretation [...] S NOT APPLICABLE FOR DIALYSIS PATIEN TS. [id number] 06:04:00 Test Item Value Reference Range Interpretation Comments PARTIAL THROMBOPLASTIN TIME 105.5 seconds 22.5-36.0 H (BEAKER) (test code = 760) PROTHROMBIN TIME/[id number] 05:44:00 Test Item Value Reference Range Interpretation [...] (test code = 2801) CT, CHEST, WITHOUT [id number] 03:17:00FINAL REPORT EXAM: CT of the chest, [...] left pleural effusion with associated compressive atelectasis. Fvxsq-up-jmgfjrfn loculated right pleural effusion with pleural thickening [...] Taylor Verified Date/Time: 12/06/2018 03:17:03 Reading Location: [facility] B1 C013Y CT Body Reading Room POCT-GLUCOSE [id number] 21:22:00 Test Item Value Reference Range Interpretation Comments POC-GLUCOSE METER 171 mg/dL 70-110 H TESTED AT [place] [address] ([facility]) (test code = [place]ER Paul [facility] 1538) [address] POCT-GLUCOSE [id number] 17:58:00 Test Item Value Reference Range Interpretation Comments POC-GLUCOSE METER 128 mg/dL 70-110 H TESTED AT [place] [address] ([facility]) (test code = MARIA GOSMAN Humberto [facility] 1538) [address] POCT-GLUCOSE [id number] 13:24:00 Test Item Value Reference Range Interpretation Comments POC-GLUCOSE METER 129 mg/dL 70-110 H TESTED AT [facility] 6720 (BEAKER) (test code = [place] 1538) [address] LACTATE DEHYDROGENASE (LDH)2018-12-05 13:14:00 Test Item Value Reference Range Interpretation Comments LACTATE DEHYDROGENASE (BEAKER) (test 291 U/L 125-220 H code = 635) [id number] 13:10:00 Test Item Value Reference Range Interpretation Comments PARTIAL THROMBOPLASTIN TIME 91.7 seconds 22.5-36.0 H (BEAKER) (test code = 760) POCT-GLUCOSE [id number] 08:19:00 Test Item Value Reference Range Interpretation Comments POC-GLUCOSE METER 106 mg/dL 70-[address] [facility] 6720 (BEAKER) (test code = [place] 1538) [address] BASIC METABOLIC [id number] 07:05:00 Test Item Value Reference Range Interpretation [...] S NOT APPLICABLE FOR DIALYSIS PATIEN TS. [id number] 06:32:00 Test Item Value Reference Range Interpretation [...] 2.5-3.5 for patients with mechanical heart valves.PROTHROMBIN TIME/[id number] 06:30:00 Test Item Value Reference Range Interpretation [...] 0-1 PERCENT (BEAKER) (test code = 2801) [id number] 00:40:00 Test Item Value Reference Range Interpretation Comments PARTIAL THROMBOPLASTIN TIME 63.1 seconds 22.5-36.0 H (BEAKER) (test code = 760) POCT-GLUCOSE [id number] 00:12:00 Test Item Value Reference Range Interpretation Comments POC-GLUCOSE METER 124 mg/dL 70-[address] [facility] 6720 (BEAKER) (test code = MARIA GOSMAN Paul [facility] 1538) [address] HEPATITIS B SURFACE [id number] 22:54:00 Test Item Value Reference Range Interpretation Comments HEPATITIS B SURFACE ANTIGEN (2) Nonreactive Nonreactive (BEAKER) (test code = 2585) For chronic HD patients, draw HBsAg with each admission then every 30 days.BODY FLUID CELL COUNT WITH [id number] 20:34:00 Test Item Value Reference Range Interpretation Comments APPEARANCE FLUID (BEAKER) (test Cloudy Clear A code = 510) COLOR FLUID (BEAKER) (test code Brown Colorless, Straw A = 511) RBC FLUID (BEAKER) (test code = 32503 /cu mm <=1 H 513) ADJUSTED WBC [...] code = 2873) LACTATE DEHYDROGENASE (LDH), BODY [id number] 19:43:00 Test Item Value Reference Range Interpretation [...] local 1% lidocaine anesthesia was administered.A 4 Singaporean catheter was advanced into the largest pocket of the septated pleural effusion and 300 ccof bloody fluid was removed. The catheter was removed without immediate complication. Samples were sent for analysis. IMPRESSION:Uncomplicated ultrasound-guided right thoracentesis with 300 cc fluid removed. Signed: Raimundo Kim MDReport Verified Date/Time: 12/04/2018 18:00:50 Reading Location: [address] Ultrasound Reading Room RAD, CHEST, 1 VIEW, NON [id number] 17:23:00Reason for exam:->s/p right thoracentesisShould this be performed at the bedside?->YesFINAL REPORT EXAM: Frontal chest radiograph HISTORY PROVIDED: Status post right thoracentesis COMPARISON: 12/03/2018 IMPRESSION:There is residual small right pleural effusion with adjacent consolidation or atelectasis. Interstitial edema is similar. No discernible pneumothorax. The cardiac silhouette remains enlarged. Median sternotomy wires are again noted. No acute osseous abnormality. Signed: Kay Walter MDRepdamion Verified Date/Time: 12/04/2018 17:23:06 Reading Location: [facility] Reading Room C. DIFFICILE GDH [id number] 10:01:00 Test Item Value Reference Range Interpretation Comments CDT TOXIN (test code Negative Negative = [id number]) CDT GDH ANTIGEN Positive Negative A C. difficile present but (test code = toxin not detec jayla. [id number]) Indicates colon ization with non-toxige ron strain or level of tox in below detectable leve ls. No need for enteri c isolation. Gary atment is rarely needed ( only when strong clinical suspicion for Clostridium difficile infection) Testing performed by [employer] Rapid Cassette Assay. For GDH, published sensitivity of the assay is 98.7% compared to cytotoxicity testing. For Toxin AB, published sensitivity is 87.8% and specificity 99.4% compared to cytotoxicity testing.Verification of kit performance was done by the [facility] Microbiology Lab prior to clinical use.[id number] 09:39:00 Test Item Value Reference Range Interpretation Comments PARTIAL THROMBOPLASTIN TIME 79.4 seconds 22.5-36.0 H (BEAKER) (test code = 760) OCCULT BLOOD, [id number] 05:59:00 Test Item Value Reference Range Interpretation Comments FECAL OCCULT BLOOD (BEAKER) (test Negative Negative code = 618) BASIC METABOLIC [id number] 02:50:00 Test Item Value Reference Range Interpretation [...] S NOT APPLICABLE FOR DIALYSIS PATIEN TS. [id number] 02:50:00 Test Item Value Reference Range Interpretation Comments PARTIAL THROMBOPLASTIN TIME 35.3 seconds 22.5-36.0 (BEAKER) (test code = 760) Prior to initiating heparinPROTHROMBIN TIME/[id number] 02:49:00 Test Item Value Reference Range Interpretation [...] acute neurological disease, and persistent tachyarrhythmia.HEPATIC FUNCTION [id number] 02:43:00 Test Item Value Reference Range Interpretation [...] 6-55 347) CBC W/PLT COUNT & AUTO [id number] 02:21:00 Test Item Value Reference Range Interpretation [...] PERCENT (BEAKER) (test code = 2801) POCT-GLUCOSE [id number] 21:22:00 Test Item Value Reference Range Interpretation Comments POC-GLUCOSE METER 192 mg/dL 70-[address] [facility] 6720 ([facility]) (test code = [facility] 1538) [address] TROPONIN [id number] 17:09:00 Test Item Value Reference Range Interpretation Comments TROPONIN I ([facility]) (test code = 0.10 ng/mL 0.00-0.03 H [...] and persistent tachyarrhythmia.RAD, CHEST, 1 VIEW, NON [id number] 15:36:00Reason for exam:->SHORTNESS OF BREATHShould this be performed at the bedside?->YesFINAL REPORT AP chest HISTORY: Shortness of breath. COMPARISON: 11/03/2017. IMPRESSION: Cardiomegaly. Mild interstitial edema. Right effusion and adjacent atelectasis. No pneumothorax. Signed: Mandy Chairez MDReport Verified Date/Time: 12/03/2018 15:36:19 Reading Location: [address] Radiology Reading Room TROPONIToy [id number] 14:48:00 Test Item Value Reference Range Interpretation [...] (BEAKER) (test code = 700) BASIC METABOLIC [id number] 14:40:00 Test Item Value Reference Range Interpretation [...] S NOT APPLICABLE FOR DIALYSIS PATIEN TS. [id number] 14:34:00 Test Item Value Reference Range Interpretation [...] (test code = 2801) RAD, CHEST, 2 [id number] 15:24:00Reason for Exam:->chronic Diastolic heart FailureFINAL REPORT [...] MDReport Verified Date/Time: 11/03/2018 15:24:42 Reading Location: [address] Radiology Reading Room MISCELLANEOUS LAB [id number] 08:22:00 Test Item Value Reference Range Interpretation Comments SCAN RESULT (test code = 6274997) PROTHROMBIN TIME/[id number] 08:37:00 Test Item Value Reference Range Interpretation Comments PROTIME (BEAKER) (test code = 24.8 seconds 11.7-14.7 H 759) INR (BEAKER) (test code = 370) 2.2 <=5.9 RECOMMENDED COUMADIN/WARFARIN INR THERAPY RANGESSTANDARD DOSE: 2.0 - 3.0 Includes: PROPHYLAXIS forvenous thrombosis, systemic embolization; TREATMENT for venous thrombosis and/or pulmonary embolus.HIGH RISK: Target INR is 2.5-3.5 for patients with mechanical heart valves.POCT-GLUCOSE [id number] 08:10:00 Test Item Value Reference Range Interpretation Comments POC-GLUCOSE METER 89 mg/dL 70-[address] [facility] 6720 (BEAKER) (test code = FOSTER Paul [facility] [address] 1538) BASIC METABOLIC [id number] 06:29:00 Test Item Value Reference Range Interpretation [...] S NOT APPLICABLE FOR DIALYSIS PATIEN TS. [id number] 06:28:00 Test Item Value Reference Range Interpretation Comments MAGNESIUM (BEAKER) (test code = 1.8 mg/dL 1.6-2.6 627) [id number] 06:14:00 Test Item Value Reference Range Interpretation Comments PARTIAL THROMBOPLASTIN TIME 64.7 seconds 22.5-36.0 H (BEAKER) (test code = 760) CBC W/PLT COUNT & AUTO [id number] 05:58:00 Test Item Value Reference Range Interpretation [...] IMMATURE GRANULOCYTES-RELATIVE 1 % 0-1 PERCENT ([facility]) (test code = 2801) POCT-GLUCOSE [id number] 21:14:00 Test Item Value Reference Range Interpretation Comments POC-GLUCOSE METER 135 mg/dL 70-110 H TESTED AT [place] [address] ([facility]) (test code = FOSTER Paul [facility] 1538) [address] [id number] 19:36:00 Test Item Value Reference Range Interpretation Comments PARTIAL THROMBOPLASTIN TIME 88.6 seconds 22.5-36.0 H ([facility]) (test code = 760) POCT-GLUCOSE [id number] 18:27:00 Test Item Value Reference Range Interpretation Comments POC-GLUCOSE METER 88 mg/dL 70-110 TESTED AT [place] [address] ([facility]) (test code = FOSTER Paul [facility] [address] 1538) POCT-GLUCOSE [id number] 12:05:00 Test Item Value Reference Range Interpretation Comments POC-GLUCOSE METER 92 mg/dL 70-110 TESTED AT [place] [address] ([facility]) (test code = FOSTER Paul [facility] [address] 1538) [id number] 11:46:00 Test Item Value Reference Range Interpretation Comments PARTIAL THROMBOPLASTIN TIME 74.3 seconds 22.5-36.0 H ([facility]) (test code = 760) POCT-GLUCOSE [id number] 10:36:00 Test Item Value Reference Range Interpretation Comments POC-GLUCOSE METER 101 mg/dL 70-110 TESTED AT [place] [address] ([facility]) (test code = FOSTER Paul [facility] 1538) [id number] POCT-GLUCOSE [id number] 07:10:00 Test Item Value Reference Range Interpretation Comments POC-GLUCOSE METER 92 mg/dL 70-110 TESTED AT [place] [address] ([facility]) (test code = [facility] Humberto [facility] [id number] 1538) PROTHROMBIN TIME/[id number] 01:41:00 Test Item Value Reference Range Interpretation Comments PROTIME ([facility]) (test code = 22.8 seconds 11.7-14.7 H 759) INR ([facility]) (test code = 370) 2.0 <=5.9 RECOMMENDED COUMADIN/WARFARIN INR THERAPY RANGESSTANDARD DOSE: 2.0 - 3.0 Includes: PROPHYLAXIS forvenous thrombosis, systemic embolization; TREATMENT for venous thrombosis and/or pulmonary embolus.HIGH RISK: Target INR is 2.5-3.5 for patients with mechanical heart valves.While on warfarin.[id number] 01:41:00 Test Item Value Reference Range Interpretation Comments PARTIAL THROMBOPLASTIN TIME 52.3 seconds 22.5-36.0 H (BEAKER) (test code = 760) While on warfarin.BASIC METABOLIC [id number] 01:37:00 Test Item Value Reference Range Interpretation [...] S NOT APPLICABLE FOR DIALYSIS PATIEN TS. [id number] 01:32:00 Test Item Value Reference Range Interpretation Comments MAGNESIUM (BEAKER) (test code = 1.8 mg/dL 1.6-2.6 627) CBC W/PLT COUNT & AUTO [id number] 01:18:00 Test Item Value Reference Range Interpretation [...] 0-1 PERCENT (BEAKER) (test code = 2801) [id number] 23:23:00 Test Item Value Reference Range Interpretation Comments PARTIAL THROMBOPLASTIN TIME 125.2 seconds 22.5-36.0 H (BEAKER) (test code = 760) POCT-GLUCOSE [id number] 21:19:00 Test Item Value Reference Range Interpretation Comments POC-GLUCOSE METER 165 mg/dL 70-[address] [facility] 6720 ([facility]) (test code = FOSTER Paul [facility] 1538) [address] POCT-GLUCOSE [id number] 18:34:00 Test Item Value Reference Range Interpretation Comments POC-GLUCOSE METER 92 mg/dL 70-[address] [facility] 67 ([facility]) (test code = FOSTER Paul [facility] [address] 1538) [id number] 17:17:00 Test Item Value Reference Range Interpretation Comments PARTIAL THROMBOPLASTIN TIME 75.2 seconds 22.5-36.0 H ([facility]) (test code = 760) POCT-GLUCOSE [id number] 12:48:00 Test Item Value Reference Range Interpretation Comments POC-GLUCOSE METER 105 mg/dL 70-110 TESTED AT [place] [address] ([facility]) (test code = FOSTER Paul [facility] 1538) [address] RAD, CHEST, 1 VIEW, NON [id number] 11:00:00Reason for exam:->eval right effusionShould this be performed at the bedside?->YesFINAL REPORT Comparison: 08/15/2018 TECHNIQUE: Single view of the chest FINDINGS: Small to moderate right pleural effusion is stable. Small left pleural effusion may be slightly increased. Vascular congestion seen. No other significant change. Signed: Kyle Rome MDReport Verified Date/Time: 08/18/2018 11:00:36 Reading Location: [facility] Radiology Reading Room Electronicallysigned by: KYLE ROME M.D. on 08/18/2018 11:00 [id number] 09:48:00 Test Item Value Reference Range Interpretation Comments PARTIAL THROMBOPLASTIN TIME 48.8 seconds 22.5-36.0 H ([facility]) (test code = 760) POCT-GLUCOSE [id number] 07:37:00 Test Item Value Reference Range Interpretation Comments POC-GLUCOSE METER 96 mg/dL 70-[address] [facility] 6720 ([facility]) (test code = FOSTER Paul [facility] [address] 1538) BASIC METABOLIC [id number] 02:24:00 Test Item Value Reference Range Interpretation [...] S NOT APPLICABLE FOR DIALYSIS PATIEN TS. [id number] 02:22:00 Test Item Value Reference Range Interpretation Comments MAGNESIUM (BEAKER) (test code = 1.7 mg/dL 1.6-2.6 627) [id number] 02:15:00 Test Item Value Reference Range Interpretation Comments PARTIAL THROMBOPLASTIN TIME 98.9 seconds 22.5-36.0 H (BEAKER) (test code = 760) PROTHROMBIN [id number] 02:13:00 Test Item Value Reference Range Interpretation [...] PERCENT (BEAKER) (test code = 2801) POCT-GLUCOSE [id number] 21:51:00 Test Item Value Reference Range Interpretation Comments POC-GLUCOSE METER 98 mg/dL 70-110 TESTED AT [place] [address] ([facility]) (test code = FOSTER Paul [facility] [address] 1538) [id number] 18:51:00 Test Item Value Reference Range Interpretation Comments PARTIAL THROMBOPLASTIN TIME 56.1 seconds 22.5-36.0 H (BEAKER) (test code = 760) [id number] 17:06:00 Test Item Value Reference Range Interpretation Comments PARTIAL THROMBOPLASTIN TIME 121.9 seconds 22.5-36.0 H (BEAKER) (test code = 760) POCT-GLUCOSE [id number] 16:46:00 Test Item Value Reference Range Interpretation Comments POC-GLUCOSE METER 135 mg/dL 70-110 H TESTED AT [place] [address] ([facility]) (test code = FOSTER Paul [facility] 1538) [address] POCT-GLUCOSE [id number] 13:28:00 Test Item Value Reference Range Interpretation Comments POC-GLUCOSE METER 96 mg/dL 70-110 TESTED AT [place] [address] ([facility]) (test code = FOSTER Paul [facility] [address] 1538) [id number] 09:15:00 Test Item Value Reference Range Interpretation Comments PARTIAL THROMBOPLASTIN TIME 58.1 seconds 22.5-36.0 H (BEAKER) (test code = 760) BASIC METABOLIC [id number] 07:31:00 Test Item Value Reference Range Interpretation [...] S NOT APPLICABLE FOR DIALYSIS PATIEN TS. [id number] 07:19:00 Test Item Value Reference Range Interpretation Comments PHOSPHORUS (BEAKER) (test code = 3.7 mg/dL 2.3-4.7 604) [id number] 07:19:00 Test Item Value Reference Range Interpretation Comments MAGNESIUM (BEAKER) (test code = 1.7 mg/dL 1.6-2.6 627) [id number] 07:07:00 Test Item Value Reference Range Interpretation Comments PARTIAL THROMBOPLASTIN TIME 124.4 seconds 22.5-36.0 H (BEAKER) (test code = 760) PROTHROMBIN [id number] 07:02:00 Test Item Value Reference Range Interpretation [...] 0-1 PERCENT (BEAKER) (test code = 2801) [id number] 23:01:00 Test Item Value Reference Range Interpretation Comments PARTIAL THROMBOPLASTIN TIME 46.5 seconds 22.5-36.0 H ([facility]) (test code = 760) POCT-GLUCOSE [id number] 22:45:00 Test Item Value Reference Range Interpretation Comments POC-GLUCOSE METER 144 mg/dL 70-[address] [facility] 6720 ([facility]) (test code = FOSTER Paul [facility] 1538) [address] [id number] 15:02:00 Test Item Value Reference Range Interpretation Comments PARTIAL THROMBOPLASTIN TIME 56.1 seconds 22.5-36.0 H ([facility]) (test code = 760) POCT-GLUCOSE [id number] 14:39:00 Test Item Value Reference Range Interpretation Comments POC-GLUCOSE METER 189 mg/dL 70-[address] [facility] 67 ([facility]) (test code = FOSTER Paul [facility] 1538) [address] HIV-1 PCR, [id number] 13:58:00 Test Item Value Reference Range Interpretation Comments HIV-1 NUMERIC RESULT ([facility]) (test 170 Cp/mL <20 H code = 2704) This test uses a Real-Time Polymerase Chain Reaction (RT-PCR) methodology to detect a highly conserved region of the HIV-1 gag gene and was performed using the ERICH AmpliPrep/ERICH TaqMan HIV-1 test kit version 2.0 ([employer]Reportable range for this assay is 20 - 10,000,000 copies per mL (1.3 - 7.0 Log copies/mL).[id number] 12:54:00 Test Item Value Reference Range Interpretation Comments PARTIAL THROMBOPLASTIN TIME 143.6 seconds 22.5-36.0 H ([facility]) (test code = 760) [id number] 10:00:00Medical Cytology Report Case: [id number] Authorizing Provider: Alison Solano MD Collected: 08/13/2018 1800 Ordering Location: [address] Received: 08/14/2018 0923 Service Pathologist: Yamil Hamm MD Specimen: Pleural, Right RIGHT PLEURAL FLUID (CYTOSPINS AND CELL BLOCK): - NO MALIGNANT CELLS IDENTIFIED (SEE COMMENT) Signing Pathologist Direct Phone Line: [phone] signed by Yamil Hamm MD on 08/16/2018 [...] thoracentesis may be considered when fluid reaccumulates. 56681, 77881, 27265, 96596 x 2Left pleural effusion, history of AIDS, Kaposi's sarcoma, hepatitis C.RIGHT PLEURAL FLUID 300 mls bloody; 4 cytospins, cell blockCollected: [id number]: [id number] interpretation of this case included the use of immunohistochemistry or special stains. Please see the immunohistochemistry results in the COMMENT section. Immunohistochemistry technical testing was performed at [facility], Pathology Laboratory where it was [...] as qualified toperform high complexity clinical laboratory testing.[facility], Department of Pathology, [address] [place] [address], [address] [facility], Department of Pathology, [address] [place] [address], [address] [facility], Department of Pathology, [address] [place] [address], QXAE-GLUCOSE [id number] 08:29:00 Test Item Value Reference Range Interpretation Comments POC-GLUCOSE METER 96 mg/dL 70-110 TESTED AT [place] [address] ([facility]) (test code = FOSTER Paul [place] [id number] 1538) BODY FLUID CULTURE + GRAM [id number] 07:54:00 Test Item Value Reference Range Interpretation Comments CULTURE (BEAKER) (test code No growth = 1095) GRAM STAIN RESULT (BEAKER) <1+ WBCs (test code = 1123) GRAM STAIN RESULT (BEAKER) No organisms seen (test code = 75810) BASIC METABOLIC [id number] 06:30:00 Test Item Value Reference Range Interpretation [...] S NOT APPLICABLE FOR DIALYSIS PATIEN TS. [id number] 06:26:00 Test Item Value Reference Range Interpretation Comments MAGNESIUM (BEAKER) (test code = 1.6 mg/dL 1.6-2.6 627) [id number] 05:48:00 Test Item Value Reference Range Interpretation Comments PARTIAL THROMBOPLASTIN TIME 80.3 seconds 22.5-36.0 H (BEAKER) (test code = 760) While on warfarin.PROTHROMBIN TIME/[id number] 05:46:00 Test Item Value Reference Range Interpretation [...] valves.While on warfarin.CBC W/PLT COUNT & AUTO [id number] 05:28:00 Test Item Value Reference Range Interpretation [...] 0-1 PERCENT (BEAKER) (test code = 2801) [id number] 22:09:00 Test Item Value Reference Range Interpretation Comments PARTIAL THROMBOPLASTIN TIME 61.5 seconds 22.5-36.0 H (BEAKER) (test code = 760) RAD, CHEST, 1 VIEW, NON [id number] 20:20:00Reason for exam:->eval right effusionShould this be [...] Anderson Verified Date/Time: 08/15/2018 20:20:24 Reading Location: [facility] Radiology Reading Room POCT-GLUCOSE [id number] 19:05:00 Test Item Value Reference Range Interpretation Comments POC-GLUCOSE METER 87 mg/dL 70-[address] [facility] 6720 ([facility]) (test code = FOSTER Paul [facility] [address] 1538) POCT-GLUCOSE [id number] 13:12:00 Test Item Value Reference Range Interpretation Comments POC-GLUCOSE METER 162 mg/dL 70-[address] [facility] 6720 ([facility]) (test code = FOSTER Paul [facility] 1538) [address] [id number] 12:48:00 Test Item Value Reference Range Interpretation Comments PARTIAL THROMBOPLASTIN TIME 89.1 seconds 22.5-36.0 H (BEAKER) (test code = 760) POCT-GLUCOSE [id number] 09:58:00 Test Item Value Reference Range Interpretation Comments POC-GLUCOSE METER 229 mg/dL 70-[address] [facility] 6720 (BEAKER) (test code = [place] 1538) [address] BASIC METABOLIC [id number] 05:40:00 Test Item Value Reference Range Interpretation [...] PATIEN TS. CBC W/PLT COUNT & AUTO [id number] 05:38:00 Test Item Value Reference Range Interpretation [...] 0-1 PERCENT (BEAKER) (test code = 2801) [id number] 05:28:00 Test Item Value Reference Range Interpretation Comments MAGNESIUM (BEAKER) (test code = 1.8 mg/dL 1.6-2.6 627) [id number] 04:47:00 Test Item Value Reference Range Interpretation Comments PARTIAL THROMBOPLASTIN TIME 60.9 seconds 22.5-36.0 H (BEAKER) (test code = 760) PROTHROMBIN [id number] 04:46:00 Test Item Value Reference Range Interpretation Comments PROTIME (BEAKER) (test code = 17.9 seconds 11.7-14.7 H 759) INR (BEAKER) (test code = 370) 1.5 <=5.9 RECOMMENDED COUMADIN/WARFARIN INR THERAPY RANGESSTANDARD DOSE: 2.0 - 3.0 Includes: PROPHYLAXIS forvenous thrombosis, systemic embolization; TREATMENT for venous thrombosis and/or pulmonary embolus.HIGH RISK: Target INR is 2.5-3.5 for patients with mechanical heart valves.[id number] 20:56:00 Test Item Value Reference Range Interpretation Comments PARTIAL THROMBOPLASTIN TIME 52.1 seconds 22.5-36.0 H ([facility]) (test code = 760) CT, CHEST, WITHOUT [id number] 19:06:00S/p fall in Jul--> right effusion, tapped [...] Tapia Verified Date/Time: 08/14/2018 19:06:09 Reading Location: [address] Reading Room [id number] 12:40:00 Test Item Value Reference Range Interpretation Comments PARTIAL THROMBOPLASTIN TIME 48.4 seconds 22.5-36.0 H (BEAKER) (test code = 760) CD4 T CELL [id number] 11:15:00 Test Item Value Reference Range Interpretation [...] 107-698 L (BEAKER) (test code = 3491) [id number] 10:48:00 Test Item Value Reference Range Interpretation Comments PHOSPHORUS (BEAKER) (test code = 5.2 mg/dL 2.3-4.7 H 604) BASIC METABOLIC [id number] 07:13:00 Test Item Value Reference Range Interpretation [...] S NOT APPLICABLE FOR DIALYSIS PATIEN TS. [id number] 07:11:00 Test Item Value Reference Range Interpretation Comments MAGNESIUM (BEAKER) (test code = 1.8 mg/dL 1.6-2.6 627) [id number] 07:00:00 Test Item Value Reference Range Interpretation Comments PARTIAL THROMBOPLASTIN TIME 59.2 seconds 22.5-36.0 H (BEAKER) (test code = 760) PROTHROMBIN TIME/[id number] 06:59:00 Test Item Value Reference Range Interpretation [...] 0-1 PERCENT (BEAKER) (test code = 2801) [id number] 00:30:00 Test Item Value Reference Range Interpretation Comments PARTIAL THROMBOPLASTIN TIME 56.7 seconds 22.5-36.0 H (BEAKER) (test code = 760) BODY FLUID CELL COUNT WITH [id number] 19:28:00 Test Item Value Reference Range Interpretation Comments APPEARANCE FLUID (BEAKER) (test Cloudy Clear A code = 510) COLOR FLUID (BEAKER) (test code Red Colorless, Straw A = 511) RBC FLUID (BEAKER) (test code = 21657 /cu mm <=1 H 513) ADJUSTED WBC [...] Tube (test code = 2873) ALBUMIN, BODY [id number] 18:40:00 Test Item Value Reference Range Interpretation Comments ALBUMIN FLUID (BEAKER) (test code = 2.1 gm/dL 501) Reference Range: No Normals Assay performance has not been validated for this type of specimen.LACTATE DEHYDROGENASE (LDH), BODY [id number] 18:40:00 Test Item Value Reference Range Interpretation [...] 125-220 H code = 635) HEPATIC FUNCTION [id number] 18:40:00 Test Item Value Reference Range Interpretation [...] 6-55 347) RAD, CHEST, 1 VIEW, NON [id number] 17:56:00Reason for exam:->post Right thoracentesisShould this be [...] appendage closure. Interstitial edema. Signed: Katherine Arteaga MDRepk[facility] Verified Date/Time: 08/13/2018 17:56:18 Reading Location: [address] Consult Reading Room U/S, [id number] 16:22:00Reason for exam:->shortness of breath, recurrent right pleural effusionShould this be performed at the bedside?->NoFINAL REPORT Ultrasound guided right thoracentesis, 08/13/2018. Clinical His tory: Right pleural effusion. Modality: Ultrasound. Sedation: None. Slipman: Gini. Fitness Services Manager: None. Estimated Blood Loss: 1cc Specimen: [...] uncomplicated ultrasound guided right thoracentesis. Signed: Moiz Musaepdamion Verified Date/Time: 08/13/2018 16:22:16 Reading Location: [address] Ultrasound Reading Room [id number] 07:18:00 Test Item Value Reference Range Interpretation Comments MAGNESIUM (BEAKER) (test code = 2.0 mg/dL 1.6-2.6 627) BASIC METABOLIC [id number] 07:18:00 Test Item Value Reference Range Interpretation [...] PATIEN TS. RAD, CHEST, 1 VIEW, NON [id number] 06:25:00Reason for exam:->SOBShould this be performed at [...] Stable surgical changes.Additional findings: None. Signed: Sobeida Taylorort Verified Date/Time: 08/13/2018 06:25:21 Reading Location: [address] Re ading Room [id number] 05:49:00 Test Item Value Reference Range Interpretation Comments PARTIAL THROMBOPLASTIN TIME 42.0 seconds 22.5-36.0 H (BEAKER) (test code = 760) PROTHROMBIN [id number] 05:48:00 Test Item Value Reference Range Interpretation [...] PERCENT (BEAKER) (test code = 2801) POCT-GLUCOSE [id number] 18:30:00 Test Item Value Reference Range Interpretation Comments POC-GLUCOSE METER 80 mg/dL 70-[address] [facility] 6720 (BEAKER) (test [place] = [place] [address] 1538) RAD, CHEST, 1 VIEW, NON [id number] 13:46:00Reason for exam:->evaluate pleural effusionShould this be performed at the bedside?->YesFINAL REPORT Comparison: 08/02/2018 TECHNIQUE: Single view of the chest FINDINGS Bilateral interstitial and airspace opacities are stable. Bilateral pleural effusions seen, right greater than left. No gross new lung parenchymal changes. Post surgical changes in the mediastinum. IMPRESSION: No significant interval change. Signed: Kyle Romeeport Verified Date/Time: 08/06/2018 13:46:20 Reading Location: [facility] Radiology Reading Room [id number] 09:33:00 Test Item Value Reference Range Interpretation Comments PARTIAL THROMBOPLASTIN TIME 113.6 seconds 22.5-36.0 H (BEAKER) (test code = 760) [id number] 06:48:00 Test Item Value Reference Range Interpretation [...] heart valves.While on warfarin.While on warfarin.BASIC METABOLIC [id number] 06:45:00 Test Item Value Reference Range Interpretation [...] NOT APPLICABLE FOR DIALYSIS PATIEN TS. PROTHROMBIN [id number] 06:43:00 Test Item Value Reference Range Interpretation [...] WBC 0-0 (BEAKER) (test code = 413) [id number] 20:40:00 Test Item Value Reference Range Interpretation Comments PARTIAL THROMBOPLASTIN TIME 81.7 seconds 22.5-36.0 H (BEAKER) (test code = 760) [id number] 14:05:00 Test Item Value Reference Range Interpretation Comments PARTIAL THROMBOPLASTIN TIME 91.5 seconds 22.5-36.0 H (BEAKER) (test code = 760) BASIC METABOLIC [id number] 07:02:00 Test Item Value Reference Range Interpretation [...] S NOT APPLICABLE FOR DIALYSIS PATIEN TS. [id number] 06:47:00 Test Item Value Reference Range Interpretation [...] valves.Ok to add onOk to add onPROTHROMBIN TIME/[id number] 06:46:00 Test Item Value Reference Range Interpretation [...] 0-1 PERCENT (BEAKER) (test code = 2801) [id number] 16:22:00 Test Item Value Reference Range Interpretation Comments PARTIAL THROMBOPLASTIN TIME 76.1 seconds 22.5-36.0 H (BEAKER) (test code = 760) BODY FLUID CULTURE + GRAM [id number] 09:10:00 Test Item Value Reference Range Interpretation Comments CULTURE (BEAKER) (test code No growth = 1095) GRAM STAIN RESULT (BEAKER) <1+ WBCs (test code = 1123) GRAM STAIN RESULT (BEAKER) No organisms seen (test code = 41668) CBC W/PLT COUNT & AUTO [id number] 07:23:00 Test Item Value Reference Range Interpretation [...] (BEAKER) (test code = 413) BASIC METABOLIC [id number] 07:05:00 Test Item Value Reference Range Interpretation [...] S NOT APPLICABLE FOR DIALYSIS PATIEN TS. [id number] 06:53:00 Test Item Value Reference Range Interpretation [...] heart valves.Ok to add onOk to add [id number] 06:53:00 Test Item Value Reference Range Interpretation Comments PARTIAL THROMBOPLASTIN TIME 70.3 seconds 22.5-36.0 H (BEAKER) (test code = 760) PROTHROMBIN TIME/[id number] 06:52:00 Test Item Value Reference Range Interpretation Comments PROTIME (BEAKER) (test code = 17.5 seconds 11.7-14.7 H 759) INR (BEAKER) (test code = 370) 1.4 <=5.9 RECOMMENDED COUMADIN/WARFARIN INR THERAPY RANGESSTANDARD DOSE: 2.0 - 3.0 Includes: PROPHYLAXIS forvenous thrombosis, systemic embolization; TREATMENT for venous thrombosis and/or pulmonary embolus.HIGH RISK: Target INR is 2.5-3.5 for patients with mechanical heart valves.PROTHROMBIN TIME/[id number] 06:51:00 Test Item Value Reference Range Interpretation Comments PROTIME (BEAKER) (test code = 17.7 seconds 11.7-14.7 H 759) INR (BEAKER) (test code = 370) 1.5 <=5.9 RECOMMENDED COUMADIN/WARFARIN INR THERAPY RANGESSTANDARD DOSE: 2.0 - 3.0 Includes: PROPHYLAXIS forvenous thrombosis, systemic embolization; TREATMENT for venous thrombosis and/or pulmonary embolus.HIGH RISK: Target INR is 2.5-3.5 for patients with mechanical heart valves.While on warfarin.[id number] 22:47:00 Test Item Value Reference Range Interpretation Comments PARTIAL THROMBOPLASTIN TIME 73.6 seconds 22.5-36.0 H (BEAKER) (test code = 760) [id number] 13:08:00 Test Item Value Reference Range Interpretation Comments PARTIAL THROMBOPLASTIN TIME 49.2 seconds 22.5-36.0 H (BEAKER) (test code = 760) BASIC METABOLIC [id number] 06:56:00 Test Item Value Reference Range Interpretation [...] S NOT APPLICABLE FOR DIALYSIS PATIEN TS. [id number] 06:56:00 Test Item Value Reference Range Interpretation Comments PARTIAL THROMBOPLASTIN TIME 67.5 seconds 22.5-36.0 H (BEAKER) (test code = 760) [id number] 06:45:00 Test Item Value Reference Range Interpretation [...] valves.Ok to add onOk to add onPROTHROMBIN TIME/[id number] 06:44:00 Test Item Value Reference Range Interpretation [...] /100 WBC 0-0 (test code = 413) [id number] 02:18:00 Test Item Value Reference Range Interpretation Comments PARTIAL THROMBOPLASTIN TIME 67.1 seconds 22.5-36.0 H (BEAKER) (test code = 760) [id number] 18:56:00 Test Item Value Reference Range Interpretation Comments PARTIAL THROMBOPLASTIN TIME 72.5 seconds 22.5-36.0 H (BEAKER) (test code = 760) POCT-GLUCOSE [id number] 13:08:00 Test Item Value Reference Range Interpretation Comments POC-GLUCOSE METER 121 mg/dL 70-[address] [facility] 6720 (BEAKER) (test code = [place] 1538) [address] [id number] 12:07:00 Test Item Value Reference Range Interpretation Comments PARTIAL THROMBOPLASTIN TIME 50.7 seconds 22.5-36.0 H (BEAKER) (test code = 760) Ok to add onPROTHROMBIN TIME/[id number] 12:05:00 Test Item Value Reference Range Interpretation [...] = 413) RAD, CHEST, 1 VIEW, NON [id number] 11:24:00Reason for exam:->pleural effusionShould this be performed at the bedside?->YesFINAL REPORT AP chest HISTORY: Pleural effusion COMPARISON: 08/01/2018 IMPRESS ION:Intact skeleton. Cardiomegaly. Moderate interstitial edema. Moderate right and small left effusions. No pneumothorax. Signed: Mandy Chairez MDReport Verified Date/Time: 08/02/2018 11:24:33 Reading Location: [address] Ortho Consult Reading Room BASIC METABOLIC [id number] 02:55:00 Test Item Value Reference Range Interpretation [...] S NOT APPLICABLE FOR DIALYSIS PATIEN TED. [id number] 02:39:00 Test Item Value Reference Range Interpretation Comments PARTIAL THROMBOPLASTIN TIME 51.6 seconds 22.5-36.0 H (BEAKER) (test code = 760) CBC W/PLT COUNT & AUTO [id number] 02:30:00 Test Item Value Reference Range Interpretation [...] = 2801) BODY FLUID CELL COUNT WITH [id number] 21:13:00 Test Item Value Reference Range Interpretation Comments APPEARANCE FLUID (BEAKER) (test Bloody Clear A code = 510) COLOR FLUID (BEAKER) (test code Sunil Colorless, Straw A = 511) RBC FLUID (BEAKER) (test code = 28401 /cu mm <=1 H 513) ADJUSTED WBC [...] Tube (test code = 2873) ALBUMIN, BODY [id number] 20:00:00 Test Item Value Reference Range Interpretation Comments ALBUMIN FLUID (BEAKER) (test code = 2.1 gm/dL 501) Reference Range: No Normals Assay performance has not been validated for this type of specimen.LACTATE DEHYDROGENASE (LDH), BODY [id number] 20:00:00 Test Item Value Reference Range Interpretation [...] of specimen.RAD, CHEST, PA OR AP, 1 [id number] 17:08:00Ultrasound Room 1Reason for exam:->s/p Right sided [...] are seen in the spine. Signed: Alonso Vailort Verified Date/Time: 08/01/2018 17:08:13 Reading Location: [facility] Radiology Reading Room U/S, [id number] 17:03:00 Laterality?->RightReason for exam:->large pleural effusionFINAL REPORT HISTORY: Right pleural effusion Following informed written consent, the patient's right posterior chest wall was prepped and draped in the usual sterile manner. 2% lidocaine was given locally for anesthesia. No conscious sedation was administered. Vital signs were monitored and remained stable. Using ultrasound guidance and a 5 Singaporean angiocatheter, access was gain ed to the [...] Seymour Verified Date/Time: 08/01/2018 17:03:15 Reading Location: [facility] B1 P006J Ultrasound Reading Room RAD, CHEST, 1 VIEW, NON [id number] 12:40:00Reason for exam:->pleural effusion; shortness of breathShould [...] MDReport Verified Date/Time: 08/01/2018 12:40:42 Reading Location: [facility] Radiology Reading Room APTT 2018-08-01 11:33:00 Test Item Value Reference Range Interpretation Comments PARTIAL THROMBOPLASTIN TIME 118.1 seconds 22.5-36.0 H (BEAKER) (test code = 760) BASIC METABOLIC [id number] 02:07:00 Test Item Value Reference Range Interpretation [...] S NOT APPLICABLE FOR DIALYSIS PATIEN TS. [id number] 01:55:00 Test Item Value Reference Range Interpretation [...] is 2.5-3.5 for patients with mechanical heart valves.[id number] 01:55:00 Test Item Value Reference Range Interpretation Comments PARTIAL THROMBOPLASTIN TIME 96.8 seconds 22.5-36.0 H (BEAKER) (test code = 760) CBC W/PLT COUNT & AUTO [id number] 01:38:00 Test Item Value Reference Range Interpretation [...] 0-1 PERCENT (BEAKER) (test code = 2801) [id number] 18:58:00 Test Item Value Reference Range Interpretation Comments PARTIAL THROMBOPLASTIN TIME 61.7 seconds 22.5-36.0 H (BEAKER) (test code = 760) [id number] 09:22:00 Test Item Value Reference Range Interpretation Comments PARTIAL THROMBOPLASTIN TIME 61.5 seconds 22.5-36.0 H (BEAKER) (test code = 760) BASIC METABOLIC [id number] 02:14:00 Test Item Value Reference Range Interpretation [...] S NOT APPLICABLE FOR DIALYSIS PATIEN TS. [id number] 01:43:00 Test Item Value Reference Range Interpretation [...] is 2.5-3.5 for patients with mechanical heart valves.[id number] 01:43:00 Test Item Value Reference Range Interpretation Comments PARTIAL THROMBOPLASTIN TIME 62.7 seconds 22.5-36.0 H (BEAKER) (test code = 760) CBC W/PLT COUNT & AUTO [id number] 01:32:00 Test Item Value Reference Range Interpretation [...] 0-1 PERCENT (BEAKER) (test code = 2801) [id number] 18:38:00 Test Item Value Reference Range Interpretation Comments PARTIAL THROMBOPLASTIN TIME 38.9 seconds 22.5-36.0 H (BEAKER) (test code = 760) Prior to initiating heparinPLATELET [id number] 18:17:00 Test Item Value Reference Range Interpretation Comments PLATELET COUNT (BEAKER) (test 115 K/CU MM 150-450 L code = 756) RAD, CHEST, 2 [id number] 18:05:00Reason for exam:->sob and pleural effusionFINAL REPORT [...] Sykes MDReport Verified Date/Time: 07/30/2018 18:05:46Reading Location: [facility] C013W Consult Reading Room C METABOLIC [id number] 05:26:00 Test Item Value Reference Range Interpretation [...] S NOT APPLICABLE FOR DIALYSIS PATIEN TS. [id number] 05:25:00 Test Item Value Reference Range Interpretation [...] 2.5-3.5 for patients with mechanical heart valves.PROTHROMBIN TIME/[id number] 05:24:00 Test Item Value Reference Range Interpretation [...] (test code = 2801) HEPATITIS B SURFACE [id number] 12:09:00 Test Item Value Reference Range Interpretation Comments HEPATITIS B SURFACE ANTIGEN (2) Nonreactive Nonreactive (BEAKER) (test code = 2585) POCT-GLUCOSE [id number] 07:50:00 Test Item Value Reference Range Interpretation Comments POC-GLUCOSE METER 93 mg/dL 70-[address] [facility] 67 ([facility]) (test code = [facility] [address] 1538) [id number] 04:59:00 Test Item Value Reference Range Interpretation [...] for patients with mechanical heart valves.BASIC METABOLIC [id number] 04:59:00 Test Item Value Reference Range Interpretation [...] PATIEN TS. CBC W/PLT COUNT & AUTO [id number] 04:51:00 Test Item Value Reference Range Interpretation [...] (test code = 2801) AFB CULTURE + [id number] 16:13:00 Test Item Value Reference Range Interpretation Comments CULTURE (BEAKER) (test No acid-fast bacilli code = 1095) isolated in 42 days AFB SMEAR (BEAKER) No acid fast bacilli (test code = 994) seen AFB CULTURE + [id number] 16:13:00 Test Item Value Reference Range Interpretation Comments CULTURE (BEAKER) (test No acid-fast bacilli code = 1095) isolated in 42 days AFB SMEAR (BEAKER) No acid fast bacilli (test code = 994) seen FUNGUS CULTURE + [id number] 07:13:00 Test Item Value Reference Range Interpretation Comments CULTURE (BEAKER) (test No fungus isolated in code = 1095) 28 days FUNGUS SMEAR (BEAKER) No fungi seen (test code = 1406) FUNGUS CULTURE + [id number] 07:13:00 Test Item Value Reference Range Interpretation Comments CULTURE ([facility]) (test No fungus isolated in code = 1095) 28 days FUNGUS SMEAR ([facility]) No fungi seen (test code = 1406) TISSUE [id number] 19:17:00Surgical Pathology Report Case: [id number] Authorizing Provider: Juliana Martinez MD Collected: 05/23/2018 08 Ordering Location: [facility] PERIOPERATIVE Received: 05/23/2018 0923 SERVICES Pathologist: Brigida Parks MD Specimen: Soft Tissue, Other, LEFT GROIN - TISSUE BIOPSY SKIN AND SOFT TISSUE,GROIN,LEFT, BIOPSY: - ABSCESSES, GRANULOMAS AND CHRONIC INFLAMMATION - NEGATIVE FOR DYSPLASIA OR MALIGNANCY - AFB AND GMS STAINS ARE NEGATIVE (SEE COMMENT) Signing Pathologist Direct Phone Line: [phone] signed by Brigida Parks MD on 06/02/2018 at 7:17 PMCorrelation with culture studies is recommended.60309Iaqwoskhu abscess groinLeft groin tissue biopsyReceived fresh labeled "soft tissue, other", description "left groin tissue biopsy" are two dark-porter, wrinkled,hair- bearing strips of skin measuring 1.5 and 2.6 cm in length, 0.3 cm in diameter and excised to a depth of 0.3 cm.Sectioning reveals no discrete masses.The specimen is entirely submitted in cassettesA1. DB/ewPOCT-GLUCOSE [id number] 08:51:00 Test Item Value Reference Range Interpretation Comments POC-GLUCOSE METER 101 mg/dL 70-[address] [facility] 6720 ([facility]) (test code = [place] [place] [facility] 1538) [address] CBC W/PLT COUNT & AUTO [id number] 06:01:00 Test Item Value Reference Range Interpretation Comments WHITE BLOOD CELL COUNT ([facility]) 7.1 K/ L 3.5-10.5 (test code = 775) RED BLOOD CELL COUNT ([facility]) 3.50 M/ L 4.63-6.08 L (test code = 761) HEMOGLOBIN ([facility]) (test code = 10.7 GM/DL 13.7-17.5 L 410) HEMATOCRIT ([facility]) (test code = 33.4 % 40.1-51.0 L [...] PERCENT (BEAKER) (test code = 2801) PROTHROMBIN [id number] 05:51:00 Test Item Value Reference Range Interpretation Comments PROTIME (BEAKER) (test code = 25.9 seconds 11.7-14.7 H 759) INR (BEAKER) (test code = 370) 2.4 <=5.9 RECOMMENDED COUMADIN/WARFARIN INR THERAPY RANGESSTANDARD DOSE: 2.0 - 3.0 Includes: PROPHYLAXIS forvenous thrombosis, systemic embolization; TREATMENT for venous thrombosis and/or pulmonary embolus.HIGH RISK: Target INR is 2.5-3.5 for patients with mechanical heart valves.BASIC METABOLIC [id number] 05:46:00 Test Item Value Reference Range Interpretation [...] NOT APPLICABLE FOR DIALYSIS PATIEN TS. POCT-GLUCOSE [id number] 20:34:00 Test Item Value Reference Range Interpretation Comments POC-GLUCOSE METER 261 mg/dL 70-110 H TESTED AT [place] [address] ([facility]) (test code = [facility] 1538) [address] POCT-GLUCOSE [id number] 18:12:00 Test Item Value Reference Range Interpretation Comments POC-GLUCOSE METER 139 mg/dL 70-110 H TESTED AT [place] [address] ([facility]) (test code = [place] [facility] 1538) [address] POCT-GLUCOSE [id number] 11:51:00 Test Item Value Reference Range Interpretation Comments POC-GLUCOSE METER 147 mg/dL 70-110 H TESTED AT [place] [address] ([facility]) (test code = [place] [facility] 1538) [address] POCT-GLUCOSE [id number] 08:42:00 Test Item Value Reference Range Interpretation Comments POC-GLUCOSE METER 104 mg/dL 70-[address] [facility] 6720 (BEAKER) (test code = [place] 1538) [address] CBC W/PLT COUNT & AUTO [id number] 06:56:00 Test Item Value Reference Range Interpretation [...] (BEAKER) (test code = 2801) BASIC METABOLIC [id number] 06:49:00 Test Item Value Reference Range Interpretation [...] NOT APPLICABLE FOR DIALYSIS PATIEN TS. PROTHROMBIN [id number] 06:46:00 Test Item Value Reference Range Interpretation Comments PROTIME (BEAKER) (test code = 26.9 seconds 11.7-14.7 H 759) INR (BEAKER) (test code = 370) 2.5 <=5.9 RECOMMENDED COUMADIN/WARFARIN INR THERAPY RANGESSTANDARD DOSE: 2.0 - 3.0 Includes: PROPHYLAXIS forvenous thrombosis, systemic embolization; TREATMENT for venous thrombosis and/or pulmonary embolus.HIGH RISK: Target INR is 2.5-3.5 for patients with mechanical heart valves.ANAEROBIC [id number] 00:38:00 Test Item Value Reference Range Interpretation Comments CULTURE (BEAKER) (test No anaerobes isolated code = 1095) ANAEROBIC [id number] 00:38:00 Test Item Value Reference Range Interpretation Comments CULTURE (BEAKER) (test No anaerobes isolated code = 1095) POCT-GLUCOSE [id number] 20:43:00 Test Item Value Reference Range Interpretation Comments POC-GLUCOSE METER 124 mg/dL 70-[address] [facility] 67 ([facility]) (test code = [facility] 1538) [address] POCT-GLUCOSE [id number] 17:17:00 Test Item Value Reference Range Interpretation Comments POC-GLUCOSE METER 190 mg/dL 70-110 H TESTED AT [place] [address] ([facility]) (test code = [facility] 1538) [address] POCT-GLUCOSE [id number] 11:54:00 Test Item Value Reference Range Interpretation Comments POC-GLUCOSE METER 195 mg/dL 70-110 H TESTED AT [place] [address] ([facility]) (test code = [facility] 1538) [address] C. DIFFICILE GDH [id number] 11:16:00 Test Item Value Reference Range Interpretation Comments CDT TOXIN (test code Negative Negative = [id number]) CDT GDH ANTIGEN (test Negative Negative No ind ication of code = 8622899920) Clostridi um difficile infection and n o colonization. Discontinue ent kenrick isolation and t herapy. Testing performed by [employer] Rapid Cassette Assay. For GDH, published sensitivity of the assay is 98.7% compared to cytotoxicity testing. For Toxin AB, published sensitivity is 87.8% and specificity 99.4% compared to cytotoxicity testing.Verification of kit performance was done by the [facility] Microbiology Lab prior to clinical use.SURGICALLY OBTAINED CULTURE + GRAM [id number] 09:22:00 Test Item Value Reference Interpretation Comments Range CULTURE ([facility]) COAGULASE NEGATIVE A <1+ C oagulase [...] No organisms seen (BEAKER) (test code = 877874) SURGICALLY OBTAINED CULTURE + GRAM [id number] 09:20:00 Test Item Value Reference Range Interpretation Comments CULTURE (BEAKER) (test code No growth = 1095) GRAM STAIN RESULT (BEAKER) 4+ WBCs (test code = 1123) GRAM STAIN RESULT (BEAKER) No organisms seen (test code = 40653) POCT-GLUCOSE [id number] 08:21:00 Test Item Value Reference Range Interpretation Comments POC-GLUCOSE METER 101 mg/dL 70-[address] [facility] 6720 (BEAKER) (test code = [place] 1538) [address] BASIC METABOLIC [id number] 07:57:00 Test Item Value Reference Range Interpretation [...] NOT APPLICABLE FOR DIALYSIS PATIEN TS. PROTHROMBIN [id number] 06:36:00 Test Item Value Reference Range Interpretation [...] PERCENT (BEAKER) (test code = 2801) POCT-GLUCOSE [id number] 21:40:00 Test Item Value Reference Range Interpretation Comments POC-GLUCOSE METER 176 mg/dL 70-110 H TESTED AT [place] [address] ([facility]) (test code = [facility] 1538) [address] POCT-GLUCOSE [id number] 16:07:00 Test Item Value Reference Range Interpretation Comments POC-GLUCOSE METER 120 mg/dL 70-110 H TESTED AT [place] [address] ([facility]) (test code = [facility] 1538) [address] POCT-GLUCOSE [id number] 08:31:00 Test Item Value Reference Range Interpretation Comments POC-GLUCOSE METER 119 mg/dL 70-110 H TESTED AT [place] [address] ([facility]) (test code = [facility] 1538) [address] BASIC METABOLIC [id number] 08:19:00 Test Item Value Reference Range Interpretation [...] APPLICABLE FOR DIALYSIS PATIEN TS. VANCOMYCIN LEVEL, [id number] 08:16:00 Test Item Value Reference Range Interpretation Comments VANCOMYCIN RANDOM (BEAKER) (test 17.6 ug/mL code = 523) Reference Range: No NormalsPROTHROMBIN [id number] 07:21:00 Test Item Value Reference Range Interpretation [...] PERCENT (BEAKER) (test code = 2801) BLOOD [id number] 06:00:00 Test Item Value Reference Range Interpretation Comments CULTURE (BEAKER) (test No growth in 5 days code = 1095) BLOOD [id number] 00:00:00 Test Item Value Reference Range Interpretation Comments CULTURE (BEAKER) (test No growth in 5 days code = 1095) POCT-GLUCOSE [id number] 22:05:00 Test Item Value Reference Range Interpretation Comments POC-GLUCOSE METER 169 mg/dL 70-[address] [facility] 6720 (BEAKER) (test code = [facility] [place] 1538) [address] POCT-GLUCOSE [id number] 18:20:00 Test Item Value Reference Range Interpretation Comments POC-GLUCOSE METER 110 mg/dL 70-[address] [facility] 6720 (BEAKER) (test code = [facility] 1538) [address] POCT-GLUCOSE [id number] 17:17:00 Test Item Value Reference Range Interpretation Comments POC-GLUCOSE METER 99 mg/dL 70-110 TESTED AT [place] [id number] (BEAKER) (test code = [facility] [place] [facility] [address] 1538) SPIN/CONCENTRATION [id number] 14:49:00 Test Item Value Reference Range Interpretation Comments CONCENTRATION CHARGED (BEAKER) (test Done code = 2657) SPIN/CONCENTRATION [id number] 14:49:00 Test Item Value Reference Range Interpretation Comments CONCENTRATION CHARGED (BEAKER) (test Done code = 2657) POCT-GLUCOSE [id number] 12:13:00 Test Item Value Reference Range Interpretation Comments POC-GLUCOSE METER 188 mg/dL 70-[address] [facility] 67 ([facility]) (test code = [facility] [place] 1538) [address] BASIC METABOLIC [id number] 09:56:00 Test Item Value Reference Range Interpretation [...] NOT APPLICABLE FOR DIALYSIS PATIEN TS. POCT-GLUCOSE [id number] 07:45:00 Test Item Value Reference Range Interpretation Comments POC-GLUCOSE METER 108 mg/dL 70-110 TESTED AT [place] [address] (BEAKER) (test code = [facility] [place] 1538) [address] CBC W/PLT COUNT & AUTO [id number] 07:00:00 Test Item Value Reference Range Interpretation [...] PERCENT (BEAKER) (test code = 2801) PROTHROMBIN [id number] 06:47:00 Test Item Value Reference Range Interpretation Comments PROTIME (BEAKER) (test code = 20.7 seconds 11.7-14.7 H 759) INR (BEAKER) (test code = 370) 1.8 <=5.9 RECOMMENDED COUMADIN/WARFARIN INR THERAPY RANGESSTANDARD DOSE: 2.0 - 3.0 Includes: PROPHYLAXIS forvenous thrombosis, systemic embolization; TREATMENT for venous thrombosis and/or pulmonary embolus.HIGH RISK: Target INR is 2.5-3.5 for patients with mechanical heart valves.POCT-GLUCOSE [id number] 20:42:00 Test Item Value Reference Range Interpretation Comments POC-GLUCOSE METER 134 mg/dL 70-110 H TESTED AT [place] [address] ([facility]) (test code = [facility] 1538) [address] POCT-GLUCOSE [id number] 13:29:00 Test Item Value Reference Range Interpretation Comments POC-GLUCOSE METER 209 mg/dL 70-110 H TESTED AT [place] [address] ([facility]) (test code = [facility] 1538) [address] POCT-GLUCOSE [id number] 08:53:00 Test Item Value Reference Range Interpretation Comments POC-GLUCOSE METER 103 mg/dL 70-110 TESTED AT [place] [address] ([facility]) (test code = [facility] 1538) [address] BASIC METABOLIC [id number] 07:47:00 Test Item Value Reference Range Interpretation [...] DIALYSIS PATIEN TS. WOUND CULTURE + GRAM [id number] 07:44:00 Test Item Value Reference Range Interpretation Comments CULTURE (BEAKER) (test code No growth = 1095) GRAM STAIN RESULT (BEAKER) No WBCs (test code = 1123) GRAM STAIN RESULT (BEAKER) No organisms seen (test code = 55767) [id number] 07:38:00 Test Item Value Reference Range Interpretation Comments PHOSPHORUS (BEAKER) (test code = 3.2 mg/dL 2.3-4.7 604) CBC W/PLT COUNT & AUTO [id number] 06:35:00 Test Item Value Reference Range Interpretation [...] PERCENT (BEAKER) (test code = 2800) PROTHROMBIN [id number] 06:32:00 Test Item Value Reference Range Interpretation Comments PROTIME (BEAKER) (test code = 23.2 seconds 11.7-14.7 H 759) INR ([facility]) (test code = 370) 2.1 <=5.9 RECOMMENDED COUMADIN/WARFARIN INR THERAPY RANGESSTANDARD DOSE: 2.0 - 3.0 Includes: PROPHYLAXIS forvenous thrombosis, systemic embolization; TREATMENT for venous thrombosis and/or pulmonary embolus.HIGH RISK: Target INR is 2.5-3.5 for patients with mechanical heart valves.POCT-GLUCOSE [id number] 21:21:00 Test Item Value Reference Range Interpretation Comments POC-GLUCOSE METER 177 mg/dL 70-[address] [facility] 6720 ([facility]) (test code = [facility] 1538) [address] POCT-GLUCOSE [id number] 17:53:00 Test Item Value Reference Range Interpretation Comments POC-GLUCOSE METER 89 mg/dL 70-[address] [facility] 6720 ([facility]) (test code = [facility] [address] 1538) IRON, TIBC, % SAT. (WITHOUT FERRITIN)2018-05-22 17:45:00 Test Item Value Reference Range Interpretation Comments IRON (BEAKER) (test code = 547) 63 ug/dL 40-160 TOTAL IRON BINDING CAPACITY 203 ug/dL 250-450 L ([facility]) (test code = 769) IRON % SATURATION (2) ([facility]) 31 % 20-55 (test code = 2590) [id number] 16:07:00 Test Item Value Reference Range Interpretation Comments PHOSPHORUS (BEAKER) (test code = 5.4 mg/dL 2.3-4.7 H 604) POCT-GLUCOSE [id number] 12:41:00 Test Item Value Reference Range Interpretation Comments POC-GLUCOSE METER 110 mg/dL 70-[address] [facility] 6720 (BEAKER) (test code = [facility] [place] 1538) [address] POCT-GLUCOSE [id number] 07:00:00 Test Item Value Reference Range Interpretation Comments POC-GLUCOSE METER 159 mg/dL 70-[address] [facility] 6720 (BEAKER) (test code = [facility] [place] 1538) [address] BASIC METABOLIC [id number] 05:19:00 Test Item Value Reference Range Interpretation [...] S NOT APPLICABLE FOR DIALYSIS PATIEN TS. [id number] 05:18:00 Test Item Value Reference Range Interpretation Comments MAGNESIUM (BEAKER) (test code = 1.9 mg/dL 1.6-2.6 627) PROTHROMBIN [id number] 05:03:00 Test Item Value Reference Range Interpretation [...] PERCENT (AKER) (test code = 2801) POCT-GLUCOSE [id number] 23:35:00 Test Item Value Reference Range Interpretation Comments POC-GLUCOSE METER 190 mg/dL 70-[address] [facility] 6720 ([facility]) (test code = [place] [facility] 1538) [address] POCT-GLUCOSE [id number] 17:16:00 Test Item Value Reference Range Interpretation Comments POC-GLUCOSE METER 122 mg/dL 70-[address] [facility] 6720 ([facility]) (test code = [place] [facility] 1538) [address] U/S, TESTICULAR (SCROTUM)2018-05-21 14:53:00Reason for exam:->testicular swellingFINAL [...] MDReport Verified Date/Time: 05/21/2018 14:53:00 Reading Location: [facility] P006J UltrasoundReading Room POCT- GLUCOSE [id number] 11:22:00 Test Item Value Reference Range Interpretation Comments POC-GLUCOSE METER 144 mg/dL 70-110 H TESTED AT [place] [address] (BEAKER) (test code = [facility] 1538) [address] POCT-GLUCOSE [id number] 07:05:00 Test Item Value Reference Range Interpretation Comments POC-GLUCOSE METER 171 mg/dL 70-110 H TESTED AT [place] [address] ([facility]) (test code = [facility] 1538) [address] BASIC METABOLIC [id number] 06:19:00 Test Item Value Reference Range Interpretation [...] S NOT APPLICABLE FOR DIALYSIS PATIEN TS. [id number] 06:04:00 Test Item Value Reference Range Interpretation Comments MAGNESIUM (BEAKER) (test code = 1.9 mg/dL 1.6-2.6 627) PROTHROMBIN [id number] 05:31:00 Test Item Value Reference Range Interpretation [...] PERCENT (BEAKER) (test code = 2801) POCT-GLUCOSE [id number] 21:29:00 Test Item Value Reference Range Interpretation Comments POC-GLUCOSE METER 156 mg/dL 70-110 H TESTED AT [place] [address] ([facility]) (test code = [facility] [place] [facility] 1538) [address] POCT-GLUCOSE [id number] 18:14:00 Test Item Value Reference Range Interpretation Comments POC-GLUCOSE METER 93 mg/dL 70-110 TESTED AT [place] [address] ([facility]) (test code = [facility] [place] [facility] [address] 1538) PROTHROMBIN [id number] 13:26:00 Test Item Value Reference Range Interpretation [...] Range ChangeNew: 0.5-2.2 mmol/L Previous: 5-20 mg/dLPOCT-GLUCOSE [id number] 12:04:00 Test Item Value Reference Range Interpretation Comments POC-GLUCOSE METER 111 mg/dL 70-[address] [facility] 6720 (BEAKER) (test code = [place] 1538) [address] CD4 T CELL [id number] 12:04:00 Test Item Value Reference Range Interpretation Comments CD4/CD8 RATIO FC (BEAKER) (test code = 0.76 0.70-3.23 3367) HEPATITIS B SURFACE [id number] 11:32:00 Test Item Value Reference Range Interpretation Comments HEPATITIS B SURFACE ANTIGEN (2) Nonreactive Nonreactive (BEAKER) (test code = 2585) VANCOMYCIN LEVEL, [id number] 11:10:00 Test Item Value Reference Range Interpretation Comments VANCOMYCIN RANDOM (BEAKER) (test 20.7 ug/mL code = 523) Reference Range: No NormalsBASIC METABOLIC [id number] 09:19:00 Test Item Value Reference Range Interpretation [...] S NOT APPLICABLE FOR DIALYSIS PATIEN TS. [id number] 09:16:00 Test Item Value Reference Range Interpretation Comments MAGNESIUM (BEAKER) (test code = 2.1 mg/dL 1.6-2.6 627) RAD, CHEST, 1 VIEW, NON [id number] 07:56:00Reason for exam:->pleural effusion seen on outside hospital imagingShould this be performed at the bedside?->YesFINAL REPORT Chest one view compared to February 23 Discussion: Small effusions are similar. Replaced cardiac valve and atrial appendage clip noted. No pneumothorax. Unchanged cardiac pulmonary appearance. Signed: Rhea Colindres Verified Date/Time: 05/20/2018 07:56:50 Reading Location: [facility] Radiology Reading Room POCT-GLUCOSE [id number] 07:32:00 Test Item Value Reference Range Interpretation Comments POC-GLUCOSE METER 105 mg/dL 70-[address] [facility] 6720 ([facility]) (test code = [place] [facility] 1538) [address] CBC W/PLT COUNT & AUTO [id number] 07:01:00 Test Item Value Reference Range Interpretation [...] (BEAKER) (test code = 2801) VANCOMYCIN LEVEL, [id number] 22:39:00 Test Item Value Reference Range Interpretation Comments VANCOMYCIN RANDOM (BEAKER) (test 22.0 ug/mL code = 523) Reference Range: No NormalsCOMPREHENSIVE METABOLIC [id number] 22:39:00 Test Item Value Reference Range Interpretation [...] S NOT APPLICABLE FOR DIALYSIS PATIEN TS. [id number] 22:38:00 Test Item Value Reference Range Interpretation Comments PHOSPHORUS (BEAKER) (test code = 4.5 mg/dL 2.3-4.7 604) [id number] 22:38:00 Test Item Value Reference Range Interpretation Comments MAGNESIUM (BEAKER) (test code = 2.0 mg/dL 1.6-2.6 627) [id number] 22:29:00 Test Item Value Reference Range Interpretation Comments PARTIAL THROMBOPLASTIN TIME 45.0 seconds 22.5-36.0 H (BEAKER) (test code = 760) PROTHROMBIN TIME/[id number] 22:28:00 Test Item Value Reference Range Interpretation Comments PROTIME (BEAKER) (test code = 48.1 seconds 11.7-14.7 H 759) INR (BEAKER) (test code = 370) 5.2 <=5.9 RECOMMENDED COUMADIN/WARFARIN INR THERAPY RANGESSTANDARD DOSE: 2.0 - 3.0 Includes: PROPHYLAXIS forvenous thrombosis, systemic embolization; TREATMENT for venous thrombosis and/or pulmonary embolus.HIGH RISK: Target INR is 2.5-3.5 for patients with mechanical heart valves.POCT-GLUCOSE [id number] 21:38:00 Test Item Value Reference Range Interpretation Comments POC-GLUCOSE METER 105 mg/dL 70-[address] [facility] 6720 (JARROD) (test code = [place] 1538) [address] XR Ankle Complete 3+ Views [id number] 22:30:07Patient: SALVATORE LUGO Date/Time05/12/2018 22:24 CDTReason for [...] FSigned (Electronic Signature): 05/12/2018 9:48 amBASIC METABOLIC [id number] 11:15:00 Test Item Value Reference Range Interpretation [...] (BEAKER) (test code = 700) BASIC METABOLIC [id number] 02:55:00 Test Item Value Reference Range Interpretation [...] H (BEAKER) (test code = 700) TROPONIN [id number] 02:30:00 Test Item Value Reference Range Interpretation [...] failure, acidosis, acute neurological disease, and persistent tachyarrhythmia.[id number] 02:21:00 Test Item Value Reference Range Interpretation Comments MAGNESIUM (BEAKER) (test code = 1.8 mg/dL 1.6-2.6 627) CBC W/PLT COUNT & AUTO [id number] 00:24:00 Test Item Value Reference Range Interpretation [...] 0-1 PERCENT (BEAKER) (test code = 2801) [id number] 00:01:00 Test Item Value Reference Range Interpretation [...] mechanical heart valves.RAD, CHEST, 1 VIEW, NON [id number] 23:39:00Reason for exam:->chest painShould this be performed [...] worrisome for fluid overload-heart failure. Signed: [facility] Verified Date/Time: 02/23/2018 23:39:58 Reading Location: [address] Reading Room POCT-GLUCOSE [id number] 19:47:00 Test Item Value Reference Range Interpretation Comments POC-GLUCOSE METER 94 mg/dL 70-110 TESTED AT [place] [address] ([facility]) ([facility] [address] 1538) POCT-GLUCOSE [id number] 17:07:00 Test Item Value Reference Range Interpretation Comments POC-GLUCOSE METER 176 mg/dL 70-110 H TESTED AT [place] [address] ([facility]) (test code = [facility] 1538) [address] POCT-GLUCOSE [id number] 12:31:00 Test Item Value Reference Range Interpretation Comments POC-GLUCOSE METER 84 mg/dL 70-110 TESTED AT [place] [address] ([facility]) (test code = [facility] Humberto [facility] [address] 1538) [id number] 10:40:00 Test Item Value Reference Range Interpretation Comments PARTIAL THROMBOPLASTIN TIME 88.5 seconds 22.5-36.0 H ([facility]) (test code = 760) OCCULT BLOOD, [id number] 09:36:00 Test Item Value Reference Range Interpretation Comments FECAL OCCULT BLOOD ([facility]) (test Negative Negative code = 618) POCT-GLUCOSE [id number] 08:51:00 Test Item Value Reference Range Interpretation Comments POC-GLUCOSE METER 223 mg/dL 70-110 H TESTED AT [place] [address] ([facility]) (test code = [facility] 1538) [address] [id number] 04:14:00 Test Item Value Reference Range Interpretation Comments PARTIAL THROMBOPLASTIN TIME 80.3 seconds 22.5-36.0 H ([facility]) (test code = 760) While on warfarin.PROTHROMBIN TIME/[id number] 04:13:00 Test Item Value Reference Range Interpretation Comments PROTIME ([facility]) (test code = 23.8 seconds 11.7-14.7 H 759) INR ([facility]) (test code = 370) 2.1 <=5.9 RECOMMENDED COUMADIN/WARFARIN INR THERAPY RANGESSTANDARD DOSE: 2.0 - 3.0 Includes: PROPHYLAXIS forvenous thrombosis, systemic embolization; TREATMENT for venous thrombosis and/or pulmonary embolus.HIGH RISK: Target INR is 2.5-3.5 for patients with mechanical heart valves.While on warfarin.POCT-GLUCOSE METER 2018-02-02 21:56:00 Test Item Value Reference Range Interpretation Comments POC-GLUCOSE METER 206 mg/dL 70-110 H TESTED AT [place] [address] ([facility]) (test code = [place] [facility] 1538) [address] [id number] 19:50:00 Test Item Value Reference Range Interpretation Comments PARTIAL THROMBOPLASTIN TIME 59.7 seconds 22.5-36.0 H ([facility]) (test code = 760) POCT-GLUCOSE [id number] 17:00:00 Test Item Value Reference Range Interpretation Comments POC-GLUCOSE METER 183 mg/dL 70-110 H TESTED AT [place] [address] ([facility]) (test code = [place] [facility] 1538) [address] [id number] 12:45:00 Test Item Value Reference Range Interpretation Comments PARTIAL THROMBOPLASTIN TIME 89.5 seconds 22.5-36.0 H ([facility]) (test code = 760) CBC W/PLT COUNT & AUTO [id number] 12:04:00 Test Item Value Reference Range Interpretation Comments WHITE BLOOD CELL COUNT ([facility]) 4.8 K/ L 3.5-10.5 (test code = 775) RED BLOOD CELL COUNT ([facility]) 2.46 M/ L 4.63-6.08 L (test code = 761) HEMOGLOBIN ([facility]) (test code = 7.5 GM/DL 13.7-17.5 L 410) HEMATOCRIT ([facility]) (test code = 24.2 % 40.1-51.0 L [...] WBC 0-0 (test code = 413) POCT-GLUCOSE [id number] 11:54:00 Test Item Value Reference Range Interpretation Comments POC-GLUCOSE METER 124 mg/dL 70-110 H TESTED AT [place] [address] ([facility]) (test code = [place] [facility] 1538) [address] POCT-GLUCOSE [id number] 07:48:00 Test Item Value Reference Range Interpretation Comments POC-GLUCOSE METER 178 mg/dL 70-110 H TESTED AT [place] [address] ([facility]) ([facility] = [facility] 1538) [address] BASIC METABOLIC [id number] 05:15:00 Test Item Value Reference Range Interpretation [...] S NOT APPLICABLE FOR DIALYSIS PATIEN TS. [id number] 04:51:00 Test Item Value Reference Range Interpretation Comments MAGNESIUM (BEAKER) (test code = 1.8 mg/dL 1.6-2.6 627) [id number] 04:36:00 Test Item Value Reference Range Interpretation Comments PARTIAL THROMBOPLASTIN TIME 91.9 seconds 22.5-36.0 H (BEAKER) (test code = 760) While on warfarin.PROTHROMBIN TIME/[id number] 04:34:00 Test Item Value Reference Range Interpretation Comments PROTIME (BEAKER) (test code = 21.6 seconds 11.7-14.7 H 759) INR ([facility]) (test code = 370) 1.9 <=5.9 RECOMMENDED COUMADIN/WARFARIN INR THERAPY RANGESSTANDARD DOSE: 2.0 - 3.0 Includes: PROPHYLAXIS forvenous thrombosis, systemic embolization; TREATMENT for venous thrombosis and/or pulmonary embolus.HIGH RISK: Target INR is 2.5-3.5 for patients with mechanical heart valves.While on warfarin.POCT-GLUCOSE METER 2018-02-01 21:46:00 Test Item Value Reference Range Interpretation Comments POC-GLUCOSE METER 126 mg/dL 70-110 H TESTED AT [place] [address] ([facility]) (test code = [facility] 1538) [address] [id number] 21:23:00 Test Item Value Reference Range Interpretation Comments PARTIAL THROMBOPLASTIN TIME 84.1 seconds 22.5-36.0 H ([employer]) (test code = 760) POCT-GLUCOSE [id number] 16:57:00 Test Item Value Reference Range Interpretation Comments POC-GLUCOSE METER 156 mg/dL 70-110 H TESTED AT [place] [id number] ([facility]) (test code = [facility] 1538) [address] [id number] 14:11:00 Test Item Value Reference Range Interpretation Comments PARTIAL THROMBOPLASTIN TIME 96.5 seconds 22.5-36.0 H ([facility]) (test code = 760) POCT-GLUCOSE [id number] 08:24:00 Test Item Value Reference Range Interpretation Comments POC-GLUCOSE METER 169 mg/dL 70-110 H TESTED AT [place] [address] ([facility]) (test code = [place] 1538) [address] POCT-GLUCOSE [id number] 06:49:00 Test Item Value Reference Range Interpretation Comments POC-GLUCOSE METER 172 mg/dL 70-110 H TESTED AT [place] [address] ([facility]) (test code = [place] 1538) [address] [id number] 04:59:00 Test Item Value Reference Range Interpretation Comments PARTIAL THROMBOPLASTIN TIME 64.7 seconds 22.5-36.0 H ([facility]) (test code = 760) While on warfarin.PROTHROMBIN TIME/[id number] 04:57:00 Test Item Value Reference Range Interpretation Comments PROTIME ([facility]) (test code = 17.5 seconds 11.7-14.7 H 759) INR ([facility]) (test code = 370) 1.4 <=5.9 RECOMMENDED COUMADIN/WARFARIN INR THERAPY RANGESSTANDARD DOSE: 2.0 - 3.0 Includes: PROPHYLAXIS forvenous thrombosis, systemic embolization; TREATMENT for venous thrombosis and/or pulmonary embolus.HIGH RISK: Target INR is 2.5-3.5 for patients with mechanical heart valves.While on warfarin.[id number] 21:55:00 Test Item Value Reference Range Interpretation Comments PARTIAL THROMBOPLASTIN TIME 68.8 seconds 22.5-36.0 H ([facility]) (test code = 760) [id number] 13:54:00 Test Item Value Reference Range Interpretation Comments PARTIAL THROMBOPLASTIN TIME 51.7 seconds 22.5-36.0 H ([facility]) (test code = 760) POCT-GLUCOSE [id number] 11:56:00 Test Item Value Reference Range Interpretation Comments POC-GLUCOSE METER 101 mg/dL 70-110 TESTED AT [place] [address] ([facility]) (test code = [place] 1538) [address] POCT-GLUCOSE [id number] 07:58:00 Test Item Value Reference Range Interpretation Comments POC-GLUCOSE METER 111 mg/dL 70-110 H TESTED AT [place] [address] ([facility]) (test code = [place] 1538) [address] BASIC METABOLIC [id number] 05:35:00 Test Item Value Reference Range Interpretation [...] S NOT APPLICABLE FOR DIALYSIS PATIEN TS. [id number] 05:34:00 Test Item Value Reference Range Interpretation Comments PHOSPHORUS (BEAKER) (test code = 4.2 mg/dL 2.3-4.7 604) [id number] 05:34:00 Test Item Value Reference Range Interpretation Comments MAGNESIUM (BEAKER) (test code = 1.7 mg/dL 1.6-2.6 627) PROTHROMBIN [id number] 05:24:00 Test Item Value Reference Range Interpretation Comments PROTIME (BEAKER) (test code = 18.8 seconds 11.7-14.7 H 759) INR (BEAKER) (test code = 370) 1.6 <=5.9 RECOMMENDED COUMADIN/WARFARIN INR THERAPY RANGESSTANDARD DOSE: 2.0 - 3.0 Includes: PROPHYLAXIS forvenous thrombosis, systemic embolization; TREATMENT for venous thrombosis and/or pulmonary embolus.HIGH RISK: Target INR is 2.5-3.5 for patients with mechanical heart valves.[id number] 05:05:00 Test Item Value Reference Range Interpretation Comments PARTIAL THROMBOPLASTIN TIME 96.6 seconds 22.5-36.0 H (BEAKER) (test code = 760) CBC W/PLT COUNT & AUTO [id number] 04:54:00 Test Item Value Reference Range Interpretation [...] code = 416) BASOPHILS ABSOLUTE COUNT ([facility]) 0.02 K/ L 0.01-0.08 (test code = 417) IMMATURE GRANULOCYTES-RELATIVE 1 % 0-1 PERCENT ([facility]) (test code = 2801) OCCULT BLOOD, [id number] 22:44:00 Test Item Value Reference Range Interpretation Comments FECAL OCCULT BLOOD ([facility]) (test Positive Negative A code = 618) [id number] 21:14:00 Test Item Value Reference Range Interpretation Comments PARTIAL THROMBOPLASTIN TIME 69.1 seconds 22.5-36.0 H ([facility]) (test code = 760) POCT-GLUCOSE [id number] 20:49:00 Test Item Value Reference Range Interpretation Comments POC-GLUCOSE METER 160 mg/dL 70-110 H TESTED AT [place] [address] ([facility]) ([facility] = [facility] 1538) [address] POCT-GLUCOSE [id number] 17:59:00 Test Item Value Reference Range Interpretation Comments POC-GLUCOSE METER 128 mg/dL 70-110 H TESTED AT [place] [address] ([facility]) (test code = [facility] [place] [facility] 1538) [address] POCT-GLUCOSE [id number] 13:31:00 Test Item Value Reference Range Interpretation Comments POC-GLUCOSE METER 70 mg/dL 70-110 TESTED AT [place] [address] ([facility]) (test code = [facility] [place] [facility] [address]38) [id number] 13:16:00 Test Item Value Reference Range Interpretation Comments PARTIAL THROMBOPLASTIN TIME 78.3 seconds 22.5-36.0 H ([facility]) (test code = 760) POCT-GLUCOSE [id number] 12:47:00 Test Item Value Reference Range Interpretation Comments POC-GLUCOSE METER 49 mg/dL 70-110 L TESTED AT [place] [address] ([facility]) (test code = [facility] [address] 1538) POCT-GLUCOSE [id number] 09:05:00 Test Item Value Reference Range Interpretation Comments POC-GLUCOSE METER 306 mg/dL 70-110 H TESTED AT [place] [address] ([facility]) (test code = [facility] [place] 1538) [address] OCCULT BLOOD, [id number] 06:52:00 Test Item Value Reference Range Interpretation Comments FECAL OCCULT BLOOD (BEAKER) (test Positive Negative A code = 618) [id number] 05:42:00 Test Item Value Reference Range Interpretation [...] 20-55 (test code = 2590) BASIC METABOLIC [id number] 03:53:00 Test Item Value Reference Range Interpretation [...] S NOT APPLICABLE FOR DIALYSIS PATIEN TS. [id number] 03:51:00 Test Item Value Reference Range Interpretation Comments PHOSPHORUS (BEAKER) (test code = 3.2 mg/dL 2.3-4.7 604) [id number] 03:51:00 Test Item Value Reference Range Interpretation Comments PARTIAL THROMBOPLASTIN TIME 122.0 seconds 22.5-36.0 H (BEAKER) (test code = 760) While on warfarin.PROTHROMBIN TIME/[id number] 03:48:00 Test Item Value Reference Range Interpretation Comments PROTIME (BEAKER) (test code = 16.3 seconds 11.7-14.7 H 759) INR (BEAKER) (test code = 370) 1.3 <=5.9 RECOMMENDED COUMADIN/WARFARIN INR THERAPY RANGESSTANDARD DOSE: 2.0 - 3.0 Includes: PROPHYLAXIS forvenous thrombosis, systemic embolization; TREATMENT for venous thrombosis and/or pulmonary embolus.HIGH RISK: Target INR is 2.5-3.5 for patients with mechanical heart valves.While on warfarin.[id number] 03:44:00 Test Item Value Reference Range Interpretation Comments MAGNESIUM (BEAKER) (test code = 1.7 mg/dL 1.6-2.6 627) CBC W/PLT COUNT & AUTO [id number] 03:38:00 Test Item Value Reference Range Interpretation [...] PERCENT (BEAKER) (test code = 2801) POCT-GLUCOSE [id number] 23:35:00 Test Item Value Reference Range Interpretation Comments POC-GLUCOSE METER 149 mg/dL 70-[address] [facility] 67[address] [facility] (test code = [place] 1538) [address] [id number] 20:08:00 Test Item Value Reference Range Interpretation Comments PARTIAL THROMBOPLASTIN TIME 55.6 seconds 22.5-36.0 H (BEAKER) (test code = 760) [id number] 15:10:00 Test Item Value Reference Range Interpretation Comments PARTIAL THROMBOPLASTIN TIME 81.4 seconds 22.5-36.0 H (BEAKER) (test code = 760) POCT-GLUCOSE [id number] 11:58:00 Test Item Value Reference Range Interpretation Comments POC-GLUCOSE METER 124 mg/dL 70-[address] [facility] 67[address] ([facility]) (test code = [place] 1538) [address] RAD, CHEST, 1 VIEW, NON [id number] 08:59:00Reason for exam:->s/p mvrShould this be performed at the bedside?->YesFINAL REPORT Chest one view compared to January 24 Discussion: Left IJ line, atrial appendage clip, cardiac valve replacement noted. Mild interstitial congestion. No gross effusion or pneumothorax. IMPRESSIONS: No significant change Signed: Rhea Colindres Verified Date/Time:01/29/2018 08:59:39 Reading Location: [facility] Radiology Reading Room POCT-GLUCOSE [id number] 07:41:00 Test Item Value Reference Range Interpretation Comments POC-GLUCOSE METER 113 mg/dL 70-[address] [facility] 6720 (BEAKER) (test code = [place] 1538) [address] [id number] 07:23:00 Test Item Value Reference Range Interpretation Comments PARTIAL THROMBOPLASTIN TIME 89.8 seconds 22.5-36.0 H (BEAKER) (test code = 760) BASIC METABOLIC [id number] 06:05:00 Test Item Value Reference Range Interpretation [...] NOT APPLICABLE FOR DIALYSIS PATIEN TS. PROTHROMBIN [id number] 05:59:00 Test Item Value Reference Range Interpretation Comments PROTIME (BEAKER) (test code = 17.0 seconds 11.7-14.7 H 759) INR (BEAKER) (test code = 370) 1.4 <=5.9 RECOMMENDED COUMADIN/WARFARIN INR THERAPY RANGESSTANDARD DOSE: 2.0 - 3.0 Includes: PROPHYLAXIS forvenous thrombosis, systemic embolization; TREATMENT for venous thrombosis and/or pulmonary embolus.HIGH RISK: Target INR is 2.5-3.5 for patients with mechanical heart valves.While on warfarin.[id number] 05:56:00 Test Item Value Reference Range Interpretation Comments PHOSPHORUS (BEAKER) (test code = 5.3 mg/dL 2.3-4.7 H 604) [id number] 05:56:00 Test Item Value Reference Range Interpretation Comments MAGNESIUM (BEAKER) (test code = 1.9 mg/dL 1.6-2.6 627) CBC W/PLT COUNT & AUTO [id number] 05:38:00 Test Item Value Reference Range Interpretation [...] 0-1 PERCENT (BEAKER) (test code = 2801) [id number] 01:07:00 Test Item Value Reference Range Interpretation Comments PARTIAL THROMBOPLASTIN TIME 63.5 seconds 22.5-36.0 H (BEAKER) (test code = 760) [id number] 18:24:00 Test Item Value Reference Range Interpretation Comments PARTIAL THROMBOPLASTIN TIME 56.6 seconds 22.5-36.0 H (BEAKER) (test code = 760) POCT-GLUCOSE [id number] 18:14:00 Test Item Value Reference Range Interpretation Comments POC-GLUCOSE METER 101 mg/dL 70-[address] [facility] 67 ([facility] (test code = [place] 1538) [address] [id number] 13:57:00 Test Item Value Reference Range Interpretation Comments PARTIAL THROMBOPLASTIN TIME 122.3 seconds 22.5-36.0 H (BEAKER) (test code = 760) POCT-GLUCOSE [id number] 13:08:00 Test Item Value Reference Range Interpretation Comments POC-GLUCOSE METER 105 mg/dL 70-[address] [facility] 6720 (BEAKER) (test code = [place] 1538) [address] BASIC METABOLIC [id number] 04:31:00 Test Item Value Reference Range Interpretation [...] S NOT APPLICABLE FOR DIALYSIS PATIEN TS. [id number] 04:28:00 Test Item Value Reference Range Interpretation Comments PHOSPHORUS (BEAKER) (test code = 3.9 mg/dL 2.3-4.7 604) [id number] 04:28:00 Test Item Value Reference Range Interpretation Comments MAGNESIUM (BEAKER) (test code = 1.7 mg/dL 1.6-2.6 627) HEPATIC FUNCTION [id number] 04:28:00 Test Item Value Reference Range Interpretation [...] (test code = 33 U/L 6-55 347) [id number] 04:20:00 Test Item Value Reference Range Interpretation Comments PARTIAL THROMBOPLASTIN TIME 106.2 seconds 22.5-36.0 H ([facility]) (test code = 760) While on warfarin.PROTHROMBIN TIME/[id number] 04:15:00 Test Item Value Reference Range Interpretation [...] valves.While on warfarin.CBC W/PLT COUNT & AUTO [id number] 04:05:00 Test Item Value Reference Range Interpretation [...] PERCENT (BEAKER) (test code = 2801) POCT-GLUCOSE [id number] 00:29:00 Test Item Value Reference Range Interpretation Comments POC-GLUCOSE METER 119 mg/dL 70-110 H TESTED AT [place] [address] ([facility] (test code = [place] [facility] 1538) [address] [id number] 00:24:00 Test Item Value Reference Range Interpretation Comments PARTIAL THROMBOPLASTIN TIME 72.4 seconds 22.5-36.0 H ([facility]) (test code = 760) POCT-GLUCOSE [id number] 18:33:00 Test Item Value Reference Range Interpretation Comments POC-GLUCOSE METER 158 mg/dL 70-110 H TESTED AT [place] [address] ([facility]) (test code = [place] Paul [facility] 1538) [address] [id number] 18:22:00 Test Item Value Reference Range Interpretation Comments PARTIAL THROMBOPLASTIN TIME 78.6 seconds 22.5-36.0 H (BEAKER) (test code = 760) POCT-GLUCOSE [id number] 12:20:00 Test Item Value Reference Range Interpretation Comments POC-GLUCOSE METER 110 mg/dL 70-110 TESTED AT [place] [address] ([facility]) (test code = [place] 1538) [address] [id number] 12:04:00 Test Item Value Reference Range Interpretation Comments PARTIAL THROMBOPLASTIN TIME 98.0 seconds 22.5-36.0 H ([facility]) (test code = 760) [id number] 04:11:00 Test Item Value Reference Range Interpretation [...] heart valves.While on warfarin.While on warfarin. PROTHROMBIN TIME/[id number] 04:10:00 Test Item Value Reference Range Interpretation Comments PROTIME ([facility]) (test code = 15.2 seconds 11.7-14.7 H 759) INR ([facility]) (test code = 370) 1.2 <=5.9 RECOMMENDED COUMADIN/WARFARIN INR THERAPY RANGESSTANDARD DOSE: 2.0 - 3.0 Includes: PROPHYLAXIS forvenous thrombosis, systemic embolization; TREATMENT for venous thrombosis and/or pulmonary embolus.HIGH RISK: Target INR is 2.5-3.5 for patients with mechanical heart valves.BASIC METABOLIC [id number] 03:53:00 Test Item Value Reference Range Interpretation [...] PATIEN TS. CBC W/PLT COUNT & AUTO [id number] 03:50:00 Test Item Value Reference Range Interpretation [...] H PERCENT (BEAKER) (test code = 2801) [id number] 03:45:00 Test Item Value Reference Range Interpretation Comments PHOSPHORUS (BEAKER) (test code = 4.7 mg/dL 2.3-4.7 604) [id number] 03:45:00 Test Item Value Reference Range Interpretation Comments MAGNESIUM (BEAKER) (test code = 2.0 mg/dL 1.6-2.6 627) HEPATIC FUNCTION [id number] 03:45:00 Test Item Value Reference Range Interpretation [...] (test code = 36 U/L 6-55 347) [id number] 22:16:00 Test Item Value Reference Range Interpretation Comments PARTIAL THROMBOPLASTIN TIME 60.7 seconds 22.5-36.0 H (BEAKER) (test code = 760) POCT-GLUCOSE [id number] 18:32:00 Test Item Value Reference Range Interpretation Comments POC-GLUCOSE METER 125 mg/dL 70-[address] [facility] 6720 (BEAKER) (test code = [place] 1538) [address] CBC (HEMOGRAM ONLY)[id number] 17:21:00 Test Item Value [...] (BEAKER) (test code = 413) BASIC METABOLIC [id number] 07:16:00 Test Item Value Reference Range Interpretation [...] S NOT APPLICABLE FOR DIALYSIS PATIEN TS. [id number] 07:13:00 Test Item Value Reference Range Interpretation Comments PHOSPHORUS (BEAKER) (test code = 4.3 mg/dL 2.3-4.7 604) [id number] 07:13:00 Test Item Value Reference Range Interpretation Comments MAGNESIUM (BEAKER) (test code = 2.0 mg/dL 1.6-2.6 627) HEPATIC FUNCTION [id number] 07:13:00 Test Item Value Reference Range Interpretation [...] (test code = 37 U/L 6-55 347) [id number] 07:12:00 Test Item Value Reference Range Interpretation [...] PERCENT (BEAKER) (test code = 2801) BLOOD [id number] 00:00:00 Test Item Value Reference Range Interpretation Comments CULTURE (BEAKER) (test No growth in 5 days code = 1095) BLOOD [id number] 00:00:00 Test Item Value Reference Range Interpretation Comments CULTURE (BEAKER) (test No growth in 5 days code = 1095) POCT-GLUCOSE [id number] 23:37:00 Test Item Value Reference Range Interpretation Comments POC-GLUCOSE METER 87 mg/dL 70-110 TESTED AT [place] [address] (BEAKER) ([facility] = [facility] [address] 1538) [id number] 23:06:00 Test Item Value Reference Range Interpretation Comments PARTIAL THROMBOPLASTIN TIME 81.8 seconds 22.5-36.0 H (BEAKER) (test code = 760) POCT-GLUCOSE [id number] 20:42:00 Test Item Value Reference Range Interpretation Comments POC-GLUCOSE METER 193 mg/dL 70-110 H TESTED AT [place] [address] ([facility]) (test code = [facility] 1538) [address] HEMOGLOBIN AND [id number] 17:40:00 Test Item Value Reference Range Interpretation Comments HEMOGLOBIN (BEAKER) (test code = 8.4 GM/DL 13.7-17.5 L 410) HEMATOCRIT (BEAKER) (test code = 25.4 % 40.1-51.0 L 411) [id number] 13:06:00 Test Item Value Reference Range Interpretation Comments PARTIAL THROMBOPLASTIN TIME 61.4 seconds 22.5-36.0 H (BEAKER) (test code = 760) POCT-GLUCOSE [id number] 12:56:00 Test Item Value Reference Range Interpretation Comments POC-GLUCOSE METER 116 mg/dL 70-110 H TESTED AT [place] [address] ([facility]) (test code = [facility] 1538) [address] [id number] 06:43:00 Test Item Value Reference Range Interpretation [...] 37 % 20-55 (test code = 2590) [id number] 05:32:00 Test Item Value Reference Range Interpretation Comments PARTIAL THROMBOPLASTIN TIME 63.7 seconds 22.5-36.0 H (BEAKER) (test code = 760) BASIC METABOLIC [id number] 05:03:00 Test Item Value Reference Range Interpretation [...] APPLICABLE FOR DIALYSIS PATIEN TS. HEPATIC FUNCTION [id number] 05:00:00 Test Item Value Reference Range Interpretation [...] (test code = 41 U/L 6-55 347) [id number] 04:40:00 Test Item Value Reference Range Interpretation [...] 0-0 (BEAKER) (test code = 413) POCT-GLUCOSE [id number] 00:30:00 Test Item Value Reference Range Interpretation Comments POC-GLUCOSE METER 112 mg/dL 70-[address] [facility] 6720 (BEAKER) (test code = [place] 1538) [address] CBC W/PLT COUNT & AUTO [id number] 19:16:00 Test Item Value Reference Range Interpretation [...] PERCENT (BEAKER) (test code = 2801) POCT-GLUCOSE [id number] 18:27:00 Test Item Value Reference Range Interpretation Comments POC-GLUCOSE METER 102 mg/dL 70-[address] [facility] 67 ([facility]) (test code = [facility] 1538) [address] POCT-GLUCOSE [id number] 13:01:00 Test Item Value Reference Range Interpretation Comments POC-GLUCOSE METER 119 mg/dL 70-110 H TESTED AT [place] [address] ([facility]) (test code = [facility] 1538) [address] RAD, CHEST, 1 VIEW, NON [id number] 10:59:00Reason for exam:->ptxShould this be performed at [...] MDReport Verified Date/Time: 01/24/2018 10:59:29 Reading Location: [facility] Diagnostic Imaging Reading Room - [place] [address] BRONCHIAL CULTURE + GRAM STAIN 2018-01-24 08:53:00 Test Item Value Reference Range Interpretation Comments CULTURE (BEAKER) 2+ Normal respiratory (test code = 1095) pete present GRAM STAIN RESULT 4+ White blood cells (BEAKER) (test code = seen 1123) GRAM STAIN RESULT No organisms seen (BEAKER) (test code = 16441) POCT-GLUCOSE [id number] 06:28:00 Test Item Value Reference Range Interpretation Comments POC-GLUCOSE METER 119 mg/dL 70-[address] [facility] 6720 (BEAKER) (test code = [place] 1538) [address] BASIC METABOLIC [id number] 04:41:00 Test Item Value Reference Range Interpretation [...] WBC 0-0 (BEAKER) (test code = 413) [id number] 04:21:00 Test Item Value Reference Range Interpretation Comments MAGNESIUM (BEAKER) (test code = 2.0 mg/dL 1.6-2.6 627) HEPATIC FUNCTION [id number] 04:21:00 Test Item Value Reference Range Interpretation [...] = 36 U/L 6-55 347) Specimen slightly [id number] 04:13:00 Test Item Value Reference Range Interpretation Comments PARTIAL THROMBOPLASTIN TIME 72.1 seconds 22.5-36.0 H (BEAKER) (test code = 760) BLOOD GAS, [id number] 04:13:00 Test Item Value Reference Range Interpretation [...] (test code = 1819) 100.0 % POCT-GLUCOSE [id number] 00:08:00 Test Item Value Reference Range Interpretation Comments POC-GLUCOSE METER 150 mg/dL 70-110 H TESTED AT [place] [address] ([facility]) ([facility] [place] 1538) [address] POCT-GLUCOSE [id number] 18:45:00 Test Item Value Reference Range Interpretation Comments POC-GLUCOSE METER 162 mg/dL 70-110 H TESTED AT [place] [address] ([facility]) (test [facility] = [facility] 1538) [address] POCT-GLUCOSE [id number] 13:14:00 Test Item Value Reference Range Interpretation Comments POC-GLUCOSE METER 176 mg/dL 70-110 H TESTED AT [place] [address] ([facility]) (test code = [facility] Humberto [place] 1538) [address] POCT-GLUCOSE [id number] 10:44:00 Test Item Value Reference Range Interpretation Comments POC-GLUCOSE METER 146 mg/dL 70-110 H TESTED AT [place] [address] ([facility]) (test code = [facility] H[place] 1538) [address] BLOOD GAS, [id number] 10:32:00 Test Item Value Reference Range Interpretation [...] 40.0 % RAD, CHEST, 1 VIEW, NON [id number] 09:14:00Reason for exam:->ptxShould this be performed at [...] MDReport Verified Date/Time: 01/23/2018 09:14:48 Reading Location: [facility] Radiology Reading Room Electronically sign ed by: KYLE ROME M.D. on 01/23/2018 09:14 AMBLOOD [id number] 08:09:00 Test Item Value Reference Range Interpretation Comments CULTURE (BEAKER) A From Aerobi c Bottle (test code = Only [place] 1095) species GRAM STAIN From aerobic RESULT (BEAKER) bottle only: gram (test code = positive rods 1123) NOT DETECTEDPanel is negative for WealthTouchFire BCID-detectable organisms. Please refer to traditional culture and sensitivity results as they become available.Other organisms and resistance markers not contained in this PCR panel cannot be excluded and follow-up of traditional culture results is required. This sample was tested at the [facility] Clinical Microbiology Laboratory using the We[employer]Touch[employer] FilmArray Blood Culture ID Panel. This test is FDA cleared for in vitro diagnostic use and has been verified and approved by the [facility] Clinical Microbiology laboratory for clinical use. Reference Range: Not DetectedBLOOD GAS, [id number] 04:45:00 Test Item Value Reference Range Interpretation [...] code = 1819) 40.0 % BASIC METABOLIC [id number] 04:39:00 Test Item Value Reference Range Interpretation [...] APPLICABLE FOR DIALYSIS PATIEN TS. Specimen slightly [id number] 04:35:00 Test Item Value Reference Range Interpretation Comments MAGNESIUM (BEAKER) (test code = 1.8 mg/dL 1.6-2.6 627) HEPATIC FUNCTION [id number] 04:35:00 Test Item Value Reference Range Interpretation [...] = 40 U/L 6-55 347) Specimen slightly [id number] 04:18:00 Test Item Value Reference Range Interpretation [...] WBC 0-0 (test code = 413) POCT-GLUCOSE [id number] 00:52:00 Test Item Value Reference Range Interpretation Comments POC-GLUCOSE METER 145 mg/dL 70-[address] [facility] 6720 ([facility]) (test code = [place] 1538) [address] BLOOD [id number] 00:00:00 Test Item Value Reference Range Interpretation Comments CULTURE (BEAKER) (test No growth in 5 days code = 1095) POCT-GLUCOSE [id number] 18:17:00 Test Item Value Reference Range Interpretation Comments POC-GLUCOSE METER 97 mg/dL 70-110 TESTED AT [place] [address] (BEAKER) (test code = [place] [facility] [address] 1538) POCT-GLUCOSE [id number] 13:26:00 Test Item Value Reference Range Interpretation Comments POC-GLUCOSE METER 138 mg/dL 70-110 H TESTED AT [place] [address] (BEAKER) (test code = [facility] H[place]to [facility] 1538) [address] BLOOD GAS, [id number] 10:32:00 Test Item Value Reference Range Interpretation [...] (test code = 1819) 40.0 % POCT-GLUCOSE [id number] 06:21:00 Test Item Value Reference Range Interpretation Comments POC-GLUCOSE METER 138 mg/dL 70-110 H TESTED AT [place] [address] (BEAKER) (test code = [facility] 1538) [address] BASIC METABOLIC [id number] 04:25:00 Test Item Value Reference Range Interpretation [...] APPLICABLE FOR DIALYSIS PATIEN TS. Specimen slightly [id number] 04:24:00 Test Item Value Reference Range Interpretation Comments MAGNESIUM (BEAKER) (test code = 2.1 mg/dL 1.6-2.6 627) HEPATIC FUNCTION [id number] 04:24:00 Test Item Value Reference Range Interpretation [...] /100 WBC 0-0 (test code = 413) [id number] 04:07:00 Test Item Value Reference Range Interpretation Comments PARTIAL THROMBOPLASTIN TIME 80.2 seconds 22.5-36.0 H (BEAKER) (test code = 760) BLOOD GAS, [id number] 04:06:00 Test Item Value Reference Range Interpretation [...] 40.0 % RAD, CHEST, 1 VIEW, NON [id number] 03:32:00Reason for exam:->ptxShould this be performed at [...] Muniz Verified Date/Time: 01/22/2018 03:32:38 Reading Location: [address] [place] Body Reading Room POCT-GLUCOSE [id number] 00:43:00 Test Item Value Reference Range Interpretation Comments POC-GLUCOSE METER 102 mg/dL 70-110 TESTED AT [place] [address] ([facility]) (test code = [place] [facility] 1538) [address] [id number] 17:31:00 Test Item Value Reference Range Interpretation Comments PARTIAL THROMBOPLASTIN TIME 65.0 seconds 22.5-36.0 H ([facility]) (test code = 760) POCT-GLUCOSE [id number] 17:24:00 Test Item Value Reference Range Interpretation Comments POC-GLUCOSE METER 171 mg/dL 70-[address] [facility] 67 ([facility]) (test code = [place] [facility] 1538) [address] POCT-GLUCOSE [id number] 13:01:00 Test Item Value Reference Range Interpretation Comments POC-GLUCOSE METER 144 mg/dL 70-110 H TESTED AT [place] [address] ([facility]) (test code = [place] [facility] 1538) [address] [id number] 11:12:00 Test Item Value Reference Range Interpretation Comments PARTIAL THROMBOPLASTIN TIME 67.9 seconds 22.5-36.0 H ([facility]) (test code = 760) RAD, CHEST, 1 VIEW, NON [id number] 08:01:00Reason for exam:->ptxShould this be performed at [...] MDReport Verified Date/Time: 01/21/2018 08:01:07 Reading Location: [facility] Radiology Reading Room POCT-GLUCOSE [id number] 06:50:00 Test Item Value Reference Range Interpretation Comments POC-GLUCOSE METER 149 mg/dL 70-[address] [facility] 6720 (BEAKER) (test code = [place] 1538) [address] CBC (HEMOGRAM ONLY)2018-01-21 04:20:00 Test Item Value [...] /100 WBC 0-0 (test code = 413) [id number] 04:03:00 Test Item Value Reference Range Interpretation Comments PARTIAL THROMBOPLASTIN TIME 51.2 seconds 22.5-36.0 H (BEAKER) (test code = 760) BASIC METABOLIC [id number] 04:01:00 Test Item Value Reference Range Interpretation [...] APPLICABLE FOR DIALYSIS PATIEN TS. Specimen moderately [id number] 03:59:00 Test Item Value Reference Range Interpretation Comments MAGNESIUM (BEAKER) (test code = 2.0 mg/dL 1.6-2.6 627) HEPATIC FUNCTION [id number] 03:59:00 Test Item Value Reference Range Interpretation [...] U/L 6-55 347) Specimen moderately ictericVANCOMYCIN LEVEL, [id number] 03:57:00 Test Item Value Reference Range Interpretation Comments VANCOMYCIN RANDOM (BEAKER) (test 18.3 ug/mL code = 523) Reference Range: No NormalsOXYGEN SATURATION, [id number] 03:32:00 Test Item Value Reference Range Interpretation Comments O2 SATURATION (MEASURED) (BEAKER) 86.3 % (test code = 1455) BLOOD GAS, [id number] 03:30:00 Test Item Value Reference Range Interpretation [...] (test code = 1819) 40.0 % POCT-GLUCOSE [id number] 23:43:00 Test Item Value Reference Range Interpretation Comments POC-GLUCOSE METER 143 mg/dL 70-110 H TESTED AT [place] [address] ([facility]) (test code = [place] 1538) [address] BLOOD [id number] 18:00:00 Test Item Value Reference Range Interpretation Comments CULTURE (BEAKER) (test No growth in 5 days code = 1095) BLOOD [id number] 18:00:00 Test Item Value Reference Range Interpretation Comments CULTURE (BEAKER) (test No growth in 5 days code = 1095) POCT-GLUCOSE [id number] 16:32:00 Test Item Value Reference Range Interpretation Comments POC-GLUCOSE METER 185 mg/dL 70-[address] [facility] 6720 ([facility]) (test code = [place] [facility] 1538) [address] MISCELLANEOUS LAB [id number] 15:04:00 Test Item Value Reference Range Interpretation Comments SCAN RESULT (test code = 1474467) Result comments: NOT DETECTED Panel is negative for BioFire BCID-detectable organisms. Please refer to traditional culture and sensitivity results as they become available. Other organisms and resistance markers not contained in this PCR panel cannot be excluded and follow-up of traditional culture results is required. This sample was tested at the [facility] Clinical Microbiology Laboratory using the [employer] FilmArray Blood Culture ID Panel. This test is FDA cleared for in vitro diagnostic use and hasbeen verified and approved by the [facility] Clinical Microbiology laboratory for clinical use. ReferenceRange: Not Detected POCT-GLUCOSE [id number] 12:25:00 Test Item Value Reference Range Interpretation Comments POC-GLUCOSE METER 116 mg/dL 70-110 H TESTED AT [place] [address] ([facility]) (test code = [place] [facility] 1538) [address] RAD, CHEST, 1 VIEW, NON [id number] 06:38:00Reason for exam:->pl effusionShould this be performed [...] MDReport Verified Date/Time: 01/20/2018 06:38:33 Reading Location: [facility] C013Y CT Body Reading Room POCT-GLUCOSE [id number] 05:54:00 Test Item Value Reference Range Interpretation Comments POC-GLUCOSE METER 231 mg/dL 70-[address] [facility] 67 ([facility]) (test code = [place] [facility] 1538) [address] VANCOMYCIN LEVEL, [id number] 04:23:00 Test Item Value Reference Range Interpretation Comments VANCOMYCIN RANDOM ([facility]) (test 25.8 ug/mL code = 523) Reference Range: No [id number] 04:17:00 Test Item Value Reference Range Interpretation Comments MAGNESIUM (BEAKER) (test code = 2.0 mg/dL 1.6-2.6 627) HEPATIC FUNCTION [id number] 04:17:00 Test Item Value Reference Range Interpretation [...] 6-55 H 347) Specimen moderately ictericBASIC METABOLIC [id number] 04:17:00 Test Item Value Reference Range Interpretation [...] APPLICABLE FOR DIALYSIS PATIEN TS. Specimen moderately [id number] 04:05:00 Test Item Value Reference Range Interpretation Comments PARTIAL THROMBOPLASTIN TIME 69.7 seconds 22.5-36.0 H (BEAKER) (test code = 760) CBC W/PLT COUNT & AUTO [id number] 03:49:00 Test Item Value Reference Range Interpretation [...] GRANULOCYTES-RELATIVE 3 % 0-1 H PERCENT ([facility]) (test code = 2801) OXYGEN SATURATION, [id number] 03:48:00 Test Item Value Reference Range Interpretation Comments O2 SATURATION (MEASURED) ([facility]) 84.1 % (test code = 1455) POCT-GLUCOSE [id number] 23:14:00 Test Item Value Reference Range Interpretation Comments POC-GLUCOSE METER 248 mg/dL 70-110 H TESTED AT [place] [address] ([facility]) (test code = [facility] 1538) [address] POCT-GLUCOSE [id number] 18:56:00 Test Item Value Reference Range Interpretation Comments POC-GLUCOSE METER 213 mg/dL 70-110 H TESTED AT [place] [address] ([facility]) (test code = [facility] 1538) [address] POCT-GLUCOSE [id number] 14:06:00 Test Item Value Reference Range Interpretation Comments POC-GLUCOSE METER 210 mg/dL 70-110 H TESTED AT [place] [address] ([facility]) (test code = [facility] 1538) [address] SPUTUM CULTURE + GRAM [id number] 13:45:00 Test Item Value Reference Range Interpretation Comments CULTURE (AKER) 4+ Normal respiratory (test code = 1095) pete present GRAM STAIN RESULT 4+ WBCs (BEAKER) (test code = 1123) GRAM STAIN RESULT 0-5 epithelial cells (BEAKER) (test code = 31272) GRAM STAIN RESULT 3+ gram negative rods (BEAKER) (test code = 47543) GRAM STAIN RESULT 2+ gram positive cocci (BEAKER) (test code = in pairs and clusters 207774) [id number] 12:37:00 Test Item Value Reference Range Interpretation Comments PARTIAL THROMBOPLASTIN TIME 74.3 seconds 22.5-36.0 H ([facility]) (test code = 760) CBC W/PLT COUNT & AUTO [id number] 10:52:00 Test Item Value Reference Range Interpretation [...] H (test code = 413) VANCOMYCIN LEVEL, [id number] 05:41:00 Test Item Value Reference Range Interpretation Comments VANCOMYCIN RANDOM (BEAKER) (test 27.9 ug/mL code = 523) Reference Range: No NormalsBASIC METABOLIC [id number] 05:39:00 Test Item Value Reference Range Interpretation [...] APPLICABLE FOR DIALYSIS PATIEN TS. Specimen moderately [id number] 05:36:00 Test Item Value Reference Range Interpretation Comments MAGNESIUM (BEAKER) (test code = 2.0 mg/dL 1.6-2.6 627) [id number] 05:36:00 Test Item Value Reference Range Interpretation Comments PHOSPHORUS (BEAKER) (test code = 3.9 mg/dL 2.3-4.7 604) HEPATIC FUNCTION [id number] 05:36:00 Test Item Value Reference Range Interpretation [...] 6-55 H 347) Specimen moderately ictericOXYGEN SATURATION, [id number] 05:33:00 Test Item Value Reference Range Interpretation [...] WBC 0-0 H (test code = 413) [id number] 05:24:00 Test Item Value Reference Range Interpretation Comments PARTIAL THROMBOPLASTIN TIME 68.1 seconds 22.5-36.0 H (BEAKER) (test code = 760) RAD, CHEST, 1 VIEW, NON [id number] 04:41:00Reason for exam:->pl effusionShould this be performed at the bedside?->YesFINAL REPORT CLINICAL INDICATION: Support lines. Comparison: 01/18/2018 The ca rdiomediastinal contours are stable. Central pulmonary vascular congestion and bilateral parenchymalopacities are unchanged. There is no pneumothorax. Support lines are stable. Signed: Kellen Parra MDReport Verified Date/Time: 01/19/2018 04:41:27 Reading Location: [address] Reading Room APTT 2018-01-19 00:38:00 Test Item Value Reference Range Interpretation Comments PARTIAL THROMBOPLASTIN TIME 45.5 seconds 22.5-36.0 H (BEAKER) (test code = 760) POCT-GLUCOSE [id number] 00:21:00 Test Item Value Reference Range Interpretation Comments POC-GLUCOSE METER 189 mg/dL 70-[address] [facility] 67 ([facility]) (test code = [place] Paul [facility] 1538) [address] POCT-GLUCOSE [id number] 23:34:00 Test Item Value Reference Range Interpretation Comments POC-GLUCOSE METER 162 mg/dL 70-110 H TESTED AT [place] [address] ([facility]) (test code = [place] Paul [facility] 1538) [address] POCT-GLUCOSE [id number] 18:09:00 Test Item Value Reference Range Interpretation Comments POC-GLUCOSE METER 172 mg/dL 70-110 H TESTED AT [place] [address] ([facility]) (test code = [place] [facility] 1538) [address] RAD, ABDOMEN/KUB, 1 VIEW [id number] 17:36:00Reason for exam:->ileusShould this be performed at the bedside?->YesFINAL REPORT Comparison: 01/17/2018 TECHNIQUE: Frontal image of the abdomen FINDINGS: There is a nonspecific bowel gas pattern. Tip of nasogastric projects in the distal stomach. No gross free intraperitoneal air. No acute skeletal abnormality. Signed: Kyle Rome Verified Date/Time: 01/18/2018 17:36:02 Reading Location: [address] Transitional Reading Room [id number] 17:10:00 Test Item Value Reference Range Interpretation Comments PARTIAL THROMBOPLASTIN TIME 27.8 seconds 22.5-36.0 ([facility]) (test code = 760) Prior to initiating heparinPOCT-GLUCOSE [id number] 15:22:00 Test Item Value Reference Range Interpretation Comments POC-GLUCOSE METER 126 mg/dL 70-110 H TESTED AT [place] [address] ([facility]) (test code = [place] Paul [facility] 1538) [address] [id number] 13:02:00 Test Item Value Reference Range Interpretation Comments PHOSPHORUS ([facility]) (test code = 3.8 mg/dL 2.3-4.7 604) BASIC METABOLIC [id number] 13:02:00 Test Item Value Reference Range Interpretation [...] FOR DIALYSIS PATIEN TS. Specimen moderately ictericPOCT-GLUCOSE [id number] 12:11:00 Test Item Value Reference Range Interpretation Comments POC-GLUCOSE METER 113 mg/dL 70-[address] [facility] 6720 (AKER) (test code = [place] 1538) [address] CBC W/PLT COUNT & AUTO [id number] 12:03:00 Test Item Value Reference Range Interpretation [...] = 413) RAD, CHEST, 1 VIEW, NON [id number] 09:44:00Reason for exam:->pl effusionShould this be performed [...] MDReport Verified Date/Time: 01/18/2018 09:44:26 Reading Location: [address] Transitional Reading Room SPUTUM CULTURE + GRAM [id number] 08:09:00 Test Item Value Reference Range Interpretation Comments CULTURE (BEAKER) 3+ Normal respiratory (test code = 1095) pete present GRAM STAIN RESULT 4+ WBCs (BEAKER) (test code = 1123) GRAM STAIN RESULT 0-5 epithelial cells (BEAKER) (test code = 61251) GRAM STAIN RESULT No organisms seen (BEAKER) (test code = 90754) POCT-GLUCOSE [id number] 07:52:00 Test Item Value Reference Range Interpretation Comments POC-GLUCOSE METER 146 mg/dL 70-[address] [facility] 6720 (BEAKER) (test code = [place] 1538) [address] POCT-GLUCOSE [id number] 06:30:00 Test Item Value Reference Range Interpretation Comments POC-GLUCOSE METER 135 mg/dL 70-[address] [facility] 6720 (BEAKER) (test code = FOSTER Paul [place] 1538) [address] POCT-GLUCOSE [id number] 06:30:00 Test Item Value Reference Range Interpretation Comments POC-GLUCOSE METER 130 mg/dL 70-[address] [facility] 6720 (BEAKER) (test code = [place] 1538) [address] [id number] 03:56:00 Test Item Value Reference Range Interpretation Comments PHOSPHORUS (BEAKER) (test code = 3.1 mg/dL 2.3-4.7 604) [id number] 03:56:00 Test Item Value Reference Range Interpretation Comments MAGNESIUM (BEAKER) (test code = 2.0 mg/dL 1.6-2.6 627) HEPATIC FUNCTION [id number] 03:56:00 Test Item Value Reference Range Interpretation [...] 6-55 H 347) Specimen moderately ictericVANCOMYCIN LEVEL, [id number] 03:53:00 Test Item Value Reference Range Interpretation Comments VANCOMYCIN RANDOM (BEAKER) (test 18.0 ug/mL code = 523) Reference Range: No [id number] 03:48:00 Test Item Value Reference Range Interpretation Comments CALCIUM (BEAKER) (test code = 697) 8.1 mg/dL 8.4-10.2 L CALCIUM, [id number] 03:34:00 Test Item Value Reference Range Interpretation Comments CALCIUM IONIZED (BEAKER) (test 1.06 mmol/L 1.12-1.27 L code = 698) PH, BLOOD ([facility]) (test code = 7.38 1810) OXYGEN SATURATION, [id number] 03:33:00 Test Item Value Reference Range Interpretation Comments O2 SATURATION (MEASURED) ([facility]) 85.8 % (test code = 1455) POCT-GLUCOSE [id number] 03:26:00 Test Item Value Reference Range Interpretation Comments POC-GLUCOSE METER 144 mg/dL 70-110 H TESTED AT [place] [address] ([facility]) (test code = FOSTER Paul [facility] 1538) [address] POCT-GLUCOSE [id number] 03:26:00 Test Item Value Reference Range Interpretation Comments POC-GLUCOSE METER 163 mg/dL 70-110 H TESTED AT [place] [address] ([facility]) (test code = [facility] Humberto [facility] 1538) [address] POCT-GLUCOSE [id number] 01:04:00 Test Item Value Reference Range Interpretation Comments POC-GLUCOSE METER 159 mg/dL 70-110 H TESTED AT [place] [address] ([facility]) (test code = [facility] 1538) [address] POCT-GLUCOSE [id number] 00:12:00 Test Item Value Reference Range Interpretation Comments POC-GLUCOSE METER 132 mg/dL 70-110 H TESTED AT [place] [address] ([facility]) (test code = [facility] 1538) [address] LACTIC ACID, ARTERIAL, WHOLE [id number] 23:54:00 Test Item Value Reference Range Interpretation Comments LACTATE BLOOD ARTERIAL (2) 0.7 mmol/L 0.5-2.2 ([facility]) (test code = 2874) Effective 01/04/2016: Units/Reference Range ChangeNew: 0.5-2.2 mmol/L Previous: 5-20 mg/dLSpecimen moderately ictericPOTASSIUM-STAT [id number] 23:30:00 Test Item Value Reference Range Interpretation Comments POTASSIUM ([facility]) (test code = 4.0 meq/L 3.6-5.5 379) BLOOD GAS, [id number] 23:30:00 Test Item Value Reference Range Interpretation Comments PH ARTERIAL ([facility]) (test code = 7.45 7.35-7.45 383) PCO2 ARTERIAL ([facility]) (test code 42 mmHg 35-45 = 384) [...] code = 1819) 50.0 % SODIUM NA-STAT [id number] 23:30:00 Test Item Value Reference Range Interpretation Comments SODIUM (BEAKER) (test code = 381) 134 meq/L 135-148 L GLUCOSE-STAT [id number] 23:30:00 Test Item Value Reference Range Interpretation Comments GLUCOSE RANDOM (BEAKER) (test code 138 mg/dL 70-110 H = 652) HGB/HCT (H&H) - STAT [id number] 23:30:00 Test Item Value Reference Range Interpretation Comments HEMOGLOBIN (BEAKER) (test code = 9.0 g/dL 13.0-16.8 L 410) HEMATOCRIT (BEAKER) (test code = 26.0 % 40.0-50.0 L 411) CALCIUM, [id number] 23:30:00 Test Item Value Reference Range Interpretation Comments CALCIUM IONIZED (BEAKER) (test 1.04 mmol/L 1.12-1.27 L code = 698) PH, BLOOD (BEAKER) (test code = 7.48 1810) OXYGEN SATURATION, [id number] 23:28:00 Test Item Value Reference Range Interpretation Comments O2 SATURATION (MEASURED) (BEAKER) 82.0 % (test code = 1455) POCT-GLUCOSE [id number] 21:35:00 Test Item Value Reference Range Interpretation Comments POC-GLUCOSE METER 99 mg/dL 70-[address] [facility] 6720 (BEAKER) (test code = [place] [address] 1538) POCT-GLUCOSE [id number] 21:35:00 Test Item Value Reference Range Interpretation Comments POC-GLUCOSE METER 111 mg/dL 70-[address] [facility] 6720 (BEAKER) (test code = [place] 1538) [address] RAD, CHEST, 1 VIEW, NON [id number] 17:08:00Reason for exam:->LIJ placment CVCShould this be [...] and well aligned. No fracture. Signed: Alonso Valieport Verified Date/Time: 01/17/2018 17:08:24 Reading Location: [facility] Radiology Reading Room GLUCOSE-STAT [id number] 16:33:00 Test Item Value Reference Range Interpretation Comments GLUCOSE RANDOM (BEAKER) (test code 147 mg/dL 70-110 H = 652) POTASSIUM-STAT [id number] 16:32:00 Test Item Value Reference Range Interpretation Comments POTASSIUM (BEAKER) (test code = 4.7 meq/L 3.6-5.5 379) [id number] 15:03:00 Test Item Value Reference Range Interpretation Comments PROCALCITONIN (BEAKER) (test code 5.33 ng/mL <0.05 H = 3036) SEPSIS RISK (ng/mL)Low: 0.05-0.50Intermediate: 0.51-2.00High: >=2.01CT BRAIN WITHOUT IV CONTRAST - [id number] 13:50:00Reason for exam:->altered mental statusFINAL REPORT CT [...] should be excluded clinically. Signed: Dung Granda [facility] Verified Date/Time: 01/17/2018 13:50:42 Reading Location: [facility] Radiology Reading Room CALCIUM, [id number] 12:36:00 Test Item Value Reference Range Interpretation Comments CALCIUM IONIZED (BEAKER) (test 1.09 mmol/L 1.12-1.27 L code = 698) PH, BLOOD (BEAKER) (test code = 7.36 1810) GLUCOSE-STAT [id number] 12:36:00 Test Item Value Reference Range Interpretation Comments GLUCOSE RANDOM (BEAKER) (test code 147 mg/dL 70-110 H = 652) POTASSIUM-STAT [id number] 12:36:00 Test Item Value Reference Range Interpretation Comments POTASSIUM (BEAKER) (test code = 4.7 meq/L 3.6-5.5 379) RAD, ABDOMEN/KUB, 1 VIEW [id number] 08:42:00Reason for exam:->ileusShould this be performed at [...] MDReport Verified Date/Time: 01/17/2018 08:42:09 Reading Location: [facility] Radiology Reading Room CBC W/PLT COUNT & AUTO [id number] 08:18:00 Test Item Value Reference Range Interpretation [...] (test code = 413) HEPARIN ASSAY - [id number] 08:07:00 Test Item Value Reference Range Interpretation Comments UNFRACTIONATED HEPARIN-ANTI 10A < u/ml 0.30-0.70 L (BEAKER) (test code = 1606) Recommendations for Monitoring Unfractionated Heparin Therapeutic Range: 0.3- 0.7 u/mL with continuous IV infusionPOCT-GLUCOSE [id number] 06:09:00 Test Item Value Reference Range Interpretation Comments POC-GLUCOSE METER 143 mg/dL 70-[address] [facility] 6720 (BEAKER) (test code = [place] 1538) [address] RAD, CHEST, 1 VIEW, NON [id number] 04:43:00Reason for exam:->acute respiratory insufficiencyShould this be [...] MDReport Verified Date/Time: 01/17/2018 04:43:34 Reading Location: [facility] [id number] Body Reading Room OXYGEN SATURATION, [id number] 04:13:00 Test Item Value Reference Range Interpretation Comments O2 SATURATION (MEASURED) (BEAKER) 85.7 % (test code = 1455) [id number] 04:06:00 Test Item Value Reference Range Interpretation Comments PHOSPHORUS (BEAKER) (test code = 3.1 mg/dL 2.3-4.7 604) [id number] 04:06:00 Test Item Value Reference Range Interpretation Comments MAGNESIUM (BEAKER) (test code = 2.1 mg/dL 1.6-2.6 627) COMPREHENSIVE METABOLIC [id number] 04:06:00 Test Item Value Reference Range Interpretation [...] DIALYSIS PATIEN TS. Specimen moderately ictericHEPATIC FUNCTION [id number] 04:06:00 Test Item Value Reference Range Interpretation [...] 347) Specimen moderately ictericLACTIC ACID, ARTERIAL, WHOLE [id number] 03:59:00 Test Item Value Reference Range Interpretation Comments LACTATE BLOOD 0.5 mmol/L 0.5-2.2 Specimen sligh tly ARTERIAL (2) (BEAKER) hemoly zed (test code = 2874) Effective 01/04/2016: Units/Reference Range ChangeNew: 0.5-2.2 mmol/L Previous: 5-20 mg/dLSpecimen moderately ictericBLOOD GAS, [id number] 03:58:00 Test Item Value Reference Range Interpretation [...] (test code = 1819) 40.0 % CALCIUM, [id number] 03:58:00 Test Item Value Reference Range Interpretation Comments CALCIUM IONIZED (BEAKER) (test 1.14 mmol/L 1.12-1.27 code = 698) PH, BLOOD (BEAKER) (test code = 7.41 1810) POCT-GLUCOSE [id number] 02:41:00 Test Item Value Reference Range Interpretation Comments POC-GLUCOSE METER 144 mg/dL 70-110 H TESTED AT [place] [address] ([facility]) (test code = [place] [facility] 1538) [address] POCT-GLUCOSE [id number] 00:30:00 Test Item Value Reference Range Interpretation Comments POC-GLUCOSE METER 171 mg/dL 70-[address] [facility] 6720 ([facility]) (test code = [place] [facility] 1538) [address] POTASSIUM-STAT [id number] 00:08:00 Test Item Value Reference Range Interpretation Comments POTASSIUM (BEAKER) (test code = 4.5 meq/L 3.6-5.5 379) POCT-GLUCOSE [id number] 23:30:00 Test Item Value Reference Range Interpretation Comments POC-GLUCOSE METER 159 mg/dL 70-[address] [facility] 67 [facility] (test code = [facility] 1538) [address] POCT-GLUCOSE [id number] 21:08:00 Test Item Value Reference Range Interpretation Comments POC-GLUCOSE METER 194 mg/dL 70-110 H TESTED AT [place] [address] (BEAKER) (test code = [facility] 1538) [address] POCT-GLUCOSE [id number] 21:08:00 Test Item Value Reference Range Interpretation Comments POC-GLUCOSE METER 230 mg/dL 70-110 H TESTED AT [place] [address] (BEAKER) (test code = [facility] 1538) [address] CALCIUM, [id number] 19:23:00 Test Item Value Reference Range Interpretation Comments CALCIUM IONIZED (BEAKER) (test 1.14 mmol/L 1.12-1.27 code = 698) PH, BLOOD (BEAKER) (test code = 7.36 1810) POTASSIUM-STAT [id number] 19:23:00 Test Item Value Reference Range Interpretation Comments POTASSIUM (BEAKER) (test code = 5.1 meq/L 3.6-5.5 379) [id number] 17:27:00 Test Item Value Reference Range Interpretation Comments PHOSPHORUS (BEAKER) (test code = 2.2 mg/dL 2.3-4.7 L 604) [id number] 17:27:00 Test Item Value Reference Range Interpretation Comments MAGNESIUM (BEAKER) (test code = 2.1 mg/dL 1.6-2.6 627) PH, [id number] 17:03:00 Test Item Value Reference Range Interpretation Comments PH ARTERIAL (BEAKER) (test code = 383) 7.39 7.35-7.45 POCT-GLUCOSE [id number] 16:43:00 Test Item Value Reference Range Interpretation Comments POC-GLUCOSE METER 95 mg/dL 70-110 TESTED AT [place] [address] (BEAKER) (test code = [facility] [address] 1538) POCT-GLUCOSE [id number] 14:41:00 Test Item Value Reference Range Interpretation Comments POC-GLUCOSE METER 134 mg/dL 70-[address] [facility] 67 ([facility]) (test code = [place] [facility] 1538) [address] RAD, ABDOMEN/KUB, 1 VIEW [id number] 13:16:00Reason for exam:- >constipationShould this be performed [...] MDReport Verified Date/Time: 01/16/2018 13:16:27 Reading Location: [facility] Reading Room Electronically signed by: KAY WALTER on01/16/2018 01:16 PMCALCIUM, [id number] 12:38:00 Test Item Value Reference Range Interpretation Comments CALCIUM IONIZED ([facility]) (test 1.14 mmol/L 1.12-1.27 code = 698) PH, BLOOD ([facility]) (test code = 7.40 1810) POCT-GLUCOSE [id number] 12:29:00 Test Item Value Reference Range Interpretation Comments POC-GLUCOSE METER 127 mg/dL 70-[address] [facility] 6720 ([facility]) (test code = [place] [facility] 1538) [address] POCT-GLUCOSE [id number] 10:34:00 Test Item Value Reference Range Interpretation Comments POC-GLUCOSE METER 130 mg/dL 70-[address] [facility] 6720 ([facility]) (test code = MARIA GMO Humberto [facility] 1538) [address] POCT-GLUCOSE [id number] 09:10:00 Test Item Value Reference Range Interpretation Comments POC-GLUCOSE METER 151 mg/dL 70-110 H TESTED AT [place] [address] ([facility]) (test code = [facility] 1538) [address] HEPARIN ASSAY - [id number] 09:00:00 Test Item Value Reference Range Interpretation [...] H (test code = 413) OXYGEN SATURATION, [id number] 08:30:00 Test Item Value Reference Range Interpretation Comments O2 SATURATION (MEASURED) (BEAKER) 87.1 % (test code = 1455) RAD, CHEST, 1 VIEW, NON [id number] 08:11:00Reason for exam:->acute respiratory insufficiencyShould this be performed at the bedside?->YesFINAL REPORT CLINICAL HISTORY: acute respiratory insufficiency TECHNIQUE: 1 view of the chest. COMPARISON: 01/15/2018 IMPRESSION: The [place] catheter has been removed. The supporting lines and tubes are otherwise unchanged. There is no pneumothorax. Mild bilateral perihilar lung opacities have decreased. The cardiomediastinal silhouette is magnified by technique with sternotomy wires. Signed: Lorna Slade Verified Date/Time: 01/16/2018 08:11:02 Reading Location: [facility] Radiology Reading Room POCT- GLUCOSE [id number] 06:43:00 Test Item Value Reference Range Interpretation Comments POC-GLUCOSE METER 107 mg/dL 70-110 TESTED AT [place] [address] ([facility]) (test code = [place] 1538) [address] U/S, ABDOMINAL, [id number] 05:25:00Abdomen limited area? Add comment if clarification [...] MDReport Verified Date/Time: 01/16/2018 05:25:06 Reading Location: [facility] B1 C013Y CT Body Reading Room IC ACID, ARTERIAL, WHOLE [id number] 04:06:00 Test Item Value Reference Range Interpretation Comments LACTATE BLOOD ARTERIAL (2) 0.6 mmol/L 0.5-2.2 (BEAKER) (test code = 2874) Effective 01/04/2016: Units/Reference Range ChangeNew: 0.5-2.2 mmol/L Previous: 5-20 mg/dLSpecimen moderately [id number] 04:00:00 Test Item Value Reference Range Interpretation Comments PHOSPHORUS (BEAKER) (test code = 2.2 mg/dL 2.3-4.7 L 604) [id number] 04:00:00 Test Item Value Reference Range Interpretation Comments MAGNESIUM (BEAKER) (test code = 2.0 mg/dL 1.6-2.6 627) [id number] 04:00:00 Test Item Value Reference Range Interpretation Comments CALCIUM (BEAKER) (test code = 697) 8.5 mg/dL 8.4-10.2 COMPREHENSIVE METABOLIC [id number] 04:00:00 Test Item Value Reference Range Interpretation [...] DIALYSIS PATIEN TS. Specimen moderately ictericHEPATIC FUNCTION [id number] 04:00:00 Test Item Value Reference Range Interpretation [...] 6-55 H 347) Specimen moderately ictericBLOOD GAS, [id number] 03:51:00 Test Item Value Reference Range Interpretation [...] (test code = 1819) 60.0 % PROTHROMBIN [id number] 03:51:00 Test Item Value Reference Range Interpretation Comments PROTIME ([facility]) (test code = 15.2 seconds 11.7-14.7 H 759) INR ([facility]) (test code = 370) 1.2 <=5.9 RECOMMENDED COUMADIN/WARFARIN INR THERAPY RANGESSTANDARD DOSE: 2.0 - 3.0 Includes: PROPHYLAXIS forvenous thrombosis, systemic embolization; TREATMENT for venous thrombosis and/or pulmonary embolus.HIGH RISK: Target INR is 2.5-3.5 for patients with mechanical heart valves.CALCIUM, [id number] 03:51:00 Test Item Value Reference Range Interpretation Comments CALCIUM IONIZED ([facility]) (test 1.17 mmol/L 1.12-1.27 code = 698) PH, BLOOD ([facility]) (test code = 7.42 1810) POCT-GLUCOSE [id number] 02:08:00 Test Item Value Reference Range Interpretation Comments POC-GLUCOSE METER 110 mg/dL 70-110 TESTED AT [place] [address] ([facility]) (test code = [place] [facility] 1538) [address] POCT-GLUCOSE [id number] 01:14:00 Test Item Value Reference Range Interpretation Comments POC-GLUCOSE METER 107 mg/dL 70-110 TESTED AT [place] [address] ([facility]) (test code = [place] [facility] 1538) [address] POCT-GLUCOSE [id number] 00:29:00 Test Item Value Reference Range Interpretation Comments POC-GLUCOSE METER 129 mg/dL 70-110 H TESTED AT [place] [address] ([facility]) (test code = [place] [facility] 1538) [address] POCT-GLUCOSE [id number] 23:07:00 Test Item Value Reference Range Interpretation Comments POC-GLUCOSE METER 152 mg/dL 70-110 H TESTED AT [place] [address] ([facility]) (test code = [place] [facility] 1538) [address] POCT-GLUCOSE [id number] 22:09:00 Test Item Value Reference Range Interpretation Comments POC-GLUCOSE METER 171 mg/dL 70-110 H TESTED AT [place] [address] ([facility]) (test code = [place] [facility] 1538) [address] POCT-GLUCOSE [id number] 21:13:00 Test Item Value Reference Range Interpretation Comments POC-GLUCOSE METER 171 mg/dL 70-110 H TESTED AT [place] [address] ([facility]) (test code = [place] [facility] 1538) [address] CALCIUM, [id number] 20:50:00 Test Item Value Reference Range Interpretation Comments CALCIUM IONIZED ([facility]) (test 1.15 mmol/L 1.12-1.27 code = 698) PH, BLOOD ([facility]) (test code = 7.34 1810) POCT-GLUCOSE [id number] 20:21:00 Test Item Value Reference Range Interpretation Comments POC-GLUCOSE METER 206 mg/dL 70-110 H TESTED AT [place] [address] ([facility]) (test code = MARIA GMO Humberto [facility] 1538) [address] POCT-GLUCOSE [id number] 19:16:00 Test Item Value Reference Range Interpretation Comments POC-GLUCOSE METER 197 mg/dL 70-110 H TESTED AT [place] [address] ([facility]) (test code = [facility] Humberto [facility] 1538) [address] [id number] 17:15:00 Test Item Value Reference Range Interpretation Comments PHOSPHORUS ([facility]) (test code = 4.1 mg/dL 2.3-4.7 604) [id number] 17:15:00 Test Item Value Reference Range Interpretation Comments MAGNESIUM ([facility]) (test code = 1.9 mg/dL 1.6-2.6 627) EEG AWAKE AND [id number] 14:56:00For STAT EEG- after 5 PM weekdays, weekends and holidays, page the on-call EEG TechReason for exam:->AMSShould this be performed at the bedside?->YesDate(s) of EE01/15/2018DATE OF REPORT: 01/15/2018ACC: [id number] Number: [id number] Location: Inpatient ICUStart time: 13:18Stop time: 13:40ICD-10: R41.82CPT Code: 87387 HISTORY: 62 y/o man with hxof AFib, [...] Kwon MD, MSClinic al Neurophysiology/Epilepsy Attending HEPARIN [id number] 13:21:00 Test Item Value Reference Range Interpretation Comments HEPARIN ANTIBODY ([facility]) (test code Negative Negative = 646) HEPARIN ANTIBODY OD ([facility]) (test 0.076 <0.400 code = 2659) 4T TOTAL SCORE ([facility]) (test code = 5 0607) Probability of HIT based on scoring system: 6-8 = High probability; 4-5 = intermediate probability;0-3 = low probabilityPOCT-GLUCOSE [id number] 12:26:00 Test Item Value Reference Range Interpretation Comments POC-GLUCOSE METER 128 mg/dL 70-[address] [facility] 6720 (AKER) (test code = [place] 1538) [address] FIBRIN SOLUBLE [id number] 11:02:00 Test Item Value Reference Range Interpretation Comments FIBRIN SOLUBLE MONOMER (BEAKER) Negative (test code = 1416) HEPARIN ASSAY - [id number] 10:20:00 Test Item Value Reference Range Interpretation Comments UNFRACTIONATED HEPARIN-ANTI 10A < u/ml 0.30-0.70 L (BEAKER) (test code = 1606) Recommendations for Monitoring Unfractionated Heparin Therapeutic Range: 0.3- 0.7 u/mL with continuous IV [id number] 10:14:00 Test Item Value Reference Range Interpretation [...] of thrombosis is within 95-100% range. GLUCOSE-STAT [id number] 10:03:00 Test Item Value Reference Range Interpretation Comments GLUCOSE RANDOM (BEAKER) (test code 151 mg/dL 70-110 H = 652) CALCIUM, [id number] 10:02:00 Test Item Value Reference Range Interpretation Comments CALCIUM IONIZED (BEAKER) (test 1.13 mmol/L 1.12-1.27 code = 698) PH, BLOOD (BEAKER) (test code = 7.36 1810) POTASSIUM-STAT [id number] 10:01:00 Test Item Value Reference Range Interpretation Comments POTASSIUM (BEAKER) (test code = 4.3 meq/L 3.6-5.5 379) CBC W/PLT COUNT & AUTO [id number] 07:43:00 Test Item Value Reference Range Interpretation [...] = 2801) RAD, CHEST, 1 VIEW, NON [id number] 04:00:00Reason for exam:->acute respiratory insufficiencyShould this be performed at the bedside?->Yes Addendum BeginsREPORT STATUS:A Correction: Comparison is made to previous dated 01/14/2018. Signed: Kellen Parra MDReport Verified Date/Time: 01/15/2018 04:00:43 Reading Location: [address] Reading RoomAddendum EndsFINAL REPORT CLINICAL ADEEL CATION: Respiratory insufficiency Comparison: 01/15/2018 The cardiomediastinal contours are stable. Central pulmonary vascular congestion and bilateral parenchymal opacities are unchanged. There is no pneumothorax. Support lines are stable. Signed: Kellen Parra MDReport Verified Date/Time: 01/15/201803:46:27 Reading Location: [address] Reading Room [id number] 03:36:00 Test Item Value Reference Range Interpretation Comments PHOSPHORUS (BEAKER) (test code = 2.7 mg/dL 2.3-4.7 604) [id number] 03:36:00 Test Item Value Reference Range Interpretation Comments MAGNESIUM (BEAKER) (test code = 2.0 mg/dL 1.6-2.6 627) COMPREHENSIVE METABOLIC [id number] 03:36:00 Test Item Value Reference Range Interpretation [...] DIALYSIS PATIEN TS. Specimen slightly ictericHEPATIC FUNCTION [id number] 03:36:00 Test Item Value Reference Range Interpretation [...] U/L 6-55 H 347) Specimen slightly ictericPROTHROMBIN [id number] 03:35:00 Test Item Value Reference Range Interpretation [...] mmol/L Previous: 5-20 mg/dLSpecimen slightly ictericBLOOD GAS, [id number] 03:29:00 Test Item Value Reference Range Interpretation [...] code = 1819) 40.0 % OXYGEN SATURATION, [id number] 03:26:00 Test Item Value Reference Range Interpretation Comments O2 SATURATION (MEASURED) (BEAKER) 72.5 % (test code = 1455) CALCIUM, [id number] 00:17:00 Test Item Value Reference Range Interpretation Comments CALCIUM IONIZED (BEAKER) (test 1.19 mmol/L 1.12-1.27 code = 698) PH, BLOOD (BEAKER) (test code = 7.36 1810) POCT-GLUCOSE [id number] 00:15:00 Test Item Value Reference Range Interpretation Comments POC-GLUCOSE METER 144 mg/dL 70-[address] [facility] 6720 (BEAKER) (test code = [place] 1538) [address] POCT-GLUCOSE [id number] 22:43:00 Test Item Value Reference Range Interpretation Comments POC-GLUCOSE METER 98 mg/dL 70-[address] [facility] 6720 (BEAKER) ([facility] = [facility] [address]38) POCT-GLUCOSE [id number] 22:43:00 Test Item Value Reference Range Interpretation Comments POC-GLUCOSE METER 80 mg/dL 70-[address] [facility] 6720 (BEAKER) (test code = [place] [address] 1538) VANCOMYCIN LEVEL, [id number] 20:20:00 Test Item Value Reference Range Interpretation Comments VANCOMYCIN TROUGH (BEAKER) (test 20.1 ug/mL 10.0-20.0 H code = 522) Before vanc [id number] 16:52:00 Test Item Value Reference Range Interpretation Comments PHOSPHORUS (BEAKER) (test code = 1.7 mg/dL 2.3-4.7 L 604) [id number] 16:52:00 Test Item Value Reference Range Interpretation Comments MAGNESIUM (BEAKER) (test code = 2.3 mg/dL 1.6-2.6 627) [id number] 16:39:00 Test Item Value Reference Range Interpretation Comments AMMONIA (BEAKER) (test code = 348) 32 mol/L 18-72 PH, [id number] 16:01:00 Test Item Value Reference Range Interpretation Comments PH ARTERIAL (BEAKER) (test code = 383) 7.42 7.35-7.45 GLUCOSE-STAT [id number] 16:01:00 Test Item Value Reference Range Interpretation Comments GLUCOSE RANDOM (BEAKER) (test code = 95 mg/dL 70-110 652) POTASSIUM-STAT [id number] 16:01:00 Test Item Value Reference Range Interpretation Comments POTASSIUM (BEAKER) (test code = 4.3 meq/L 3.6-5.5 379) CALCIUM, [id number] 16:01:00 Test Item Value Reference Range Interpretation Comments CALCIUM IONIZED (BEAKER) (test 1.28 mmol/L 1.12-1.27 H code = 698) PH, BLOOD (BEAKER) (test code = 7.42 1810) CALCIUM, [id number] 12:19:00 Test Item Value Reference Range Interpretation Comments CALCIUM IONIZED (BEAKER) (test 1.36 mmol/L 1.12-1.27 H code = 698) PH, BLOOD (BEAKER) (test code = 7.41 1810) GLUCOSE-STAT [id number] 12:17:00 Test Item Value Reference Range Interpretation Comments GLUCOSE RANDOM (BEAKER) (test code = 94 mg/dL 70-110 652) POTASSIUM-STAT [id number] 12:17:00 Test Item Value Reference Range Interpretation Comments POTASSIUM (BEAKER) (test code = 4.3 meq/L 3.6-5.5 379) [id number] 11:34:00 Test Item Value Reference Range Interpretation Comments MAGNESIUM (BEAKER) (test code = 2.1 mg/dL 1.6-2.6 627) BASIC METABOLIC [id number] 11:34:00 Test Item Value Reference Range Interpretation [...] DIALYSIS PATIEN TS. Specimen slightly ictericHEPATIC FUNCTION [id number] 11:34:00 Test Item Value Reference Range Interpretation [...] 6-55 H 347) Specimen slightly ictericBLOOD GAS, [id number] 09:44:00 Test Item Value Reference Range Interpretation [...] (test code = 1819) 100.0 % GLUCOSE-STAT [id number] 09:42:00 Test Item Value Reference Range Interpretation Comments GLUCOSE RANDOM (BEAKER) (test code = 95 mg/dL 70-110 652) POTASSIUM-STAT [id number] 09:42:00 Test Item Value Reference Range Interpretation Comments POTASSIUM (BEAKER) (test code = 4.5 meq/L 3.6-5.5 379) CALCIUM, [id number] 09:38:00 Test Item Value Reference Range Interpretation Comments CALCIUM IONIZED (BEAKER) (test 1.26 mmol/L 1.12-1.27 code = 698) PH, BLOOD (BEAKER) (test code = 7.41 1810) HEPARIN ASSAY - [id number] 08:44:00 Test Item Value Reference Range Interpretation Comments UNFRACTIONATED HEPARIN-ANTI 10A < u/ml 0.30-0.70 L (BEAKER) (test code = 1606) Recommendations for Monitoring Unfractionated Heparin Therapeutic Range: 0.3- 0.7 u/mL with continuous IV infusionGLUCOSE-STAT [id number] 06:41:00 Test Item Value Reference Range Interpretation [...] (test 0.0 % 0.0-5.0 code = 1414) [id number] 05:05:00 Test Item Value Reference Range Interpretation Comments PHOSPHORUS (BEAKER) (test code = 2.5 mg/dL 2.3-4.7 604) [id number] 05:05:00 Test Item Value Reference Range Interpretation Comments MAGNESIUM (BEAKER) (test code = 2.1 mg/dL 1.6-2.6 627) HEPATIC FUNCTION [id number] 05:05:00 Test Item Value Reference Range Interpretation [...] 1266 U/L 6-55 H 347) Specimen slightly [id number] 05:05:00 Test Item Value Reference Range Interpretation Comments CALCIUM (BEAKER) (test code = 697) 9.0 mg/dL 8.4-10.2 LACTATE DEHYDROGENASE (LDH)2018-01-14 05:05:00 Test Item Value Reference Range Interpretation Comments LACTATE DEHYDROGENASE (BEAKER) (test 667 U/L 125-220 H code = 635) PROTHROMBIN [id number] 05:05:00 Test Item Value Reference Range Interpretation Comments PROTIME (BEAKER) (test code = 15.2 seconds 11.7-14.7 H 759) INR (BEAKER) (test code = 370) 1.2 <=5.9 RECOMMENDED COUMADIN/WARFARIN INR THERAPY RANGESSTANDARD DOSE: 2.0 - 3.0 Includes: PROPHYLAXIS forvenous thrombosis, systemic embolization; TREATMENT for venous thrombosis and/or pulmonary embolus.HIGH RISK: Target INR is 2.5-3.5 for patients with mechanical heart valves.[id number] 05:05:00 Test Item Value Reference Range Interpretation Comments FIBRINOGEN LEVEL (BEAKER) (test 280 mg/dl 225-434 code = 658) RAD, CHEST, 1 VIEW, NON [id number] 04:57:00Reason for exam:- >impella/ECMO/intubationShould this be performed at the bedside?->YesFINAL REPORT CLINICAL INDICATION: Support lines. Comparison: 01/13/2018 The cardiomediastinal contours are stable. Cardiac opacities may reflect atelectasis but pneumonitis should be excluded clinically. There is no pneumothorax. Support lines are stable. Signed: Kellen Parra MDReport Verified Date/Time: 01/14/2018 04:57:02 Reading Location: [address] Reading Room LACTIC ACID, ARTERIAL, WHOLE [id number] 04:55:00 Test Item Value Reference Range Interpretation [...] H (BEAKER) (test code = 413) CALCIUM, [id number] 04:39:00 Test Item Value Reference Range Interpretation Comments CALCIUM IONIZED (BEAKER) (test 1.20 mmol/L 1.12-1.27 code = 698) PH, BLOOD (BEAKER) (test code = 7.37 1810) OXYGEN SATURATION, [id number] 04:38:00 Test Item Value Reference Range Interpretation Comments O2 SATURATION (MEASURED) (BEAKER) 75.3 % (test code = 1455) BLOOD GAS, [id number] 04:37:00 Test Item Value Reference Range Interpretation [...] (test code = 1819) 40.0 % GLUCOSE-STAT [id number] 04:37:00 Test Item Value Reference Range Interpretation Comments GLUCOSE RANDOM (BEAKER) (test code 154 mg/dL 70-110 H = 652) GLUCOSE-STAT [id number] 02:52:00 Test Item Value Reference Range Interpretation Comments GLUCOSE RANDOM (BEAKER) (test code 179 mg/dL 70-110 H = 652) GLUCOSE-STAT [id number] 01:26:00 Test Item Value Reference Range Interpretation Comments GLUCOSE RANDOM (BEAKER) (test code 195 mg/dL 70-110 H = 652) [id number] 00:08:00 Test Item Value Reference Range Interpretation Comments POTASSIUM (BEAKER) (test code = 4.2 meq/L 3.5-5.1 379) [id number] 00:08:00 Test Item Value Reference Range Interpretation Comments GLUCOSE RANDOM (BEAKER) (test code 237 mg/dL 70-105 H = 652) CBC W/PLT COUNT & AUTO [id number] 22:28:00 Test Item Value Reference Range Interpretation [...] = 413) RAD, CHEST, 1 VIEW, NON [id number] 21:50:00Reason for exam:->chest tubes/intubationShould this be performed [...] MDReport Verified Date/Time: 01/13/2018 21:50:50 Reading Location: [address] Consult Reading Room THROMBOELASTOGRAPH (TEG)2018-01-13 21:45:00 [...] % 0.0-5.0 code = 1414) BASIC METABOLIC [id number] 21:35:00 Test Item Value Reference Range Interpretation [...] APPLICABLE FOR DIALYSIS PATIEN TS. Specimen slightly [id number] 21:06:00 Test Item Value Reference Range Interpretation Comments PHOSPHORUS (BEAKER) (test code = 3.7 mg/dL 2.3-4.7 604) [id number] 21:06:00 Test Item Value Reference Range Interpretation Comments MAGNESIUM (BEAKER) (test code = 2.0 mg/dL 1.6-2.6 627) LACTIC ACID, ARTERIAL, WHOLE [id number] 21:06:00 Test Item Value Reference Range Interpretation Comments LACTATE BLOOD ARTERIAL (2) 1.8 mmol/L 0.5-2.2 (BEAKER) (test code = 2874) Effective 01/04/2016: Units/Reference Range ChangeNew: 0.5-2.2 mmol/L Previous: 5-20 mg/dLSpecimen slightly [id number] 21:01:00 Test Item Value Reference Range Interpretation Comments PARTIAL THROMBOPLASTIN TIME 35.1 seconds 22.5-36.0 (BEAKER) (test code = 760) [id number] 21:00:00 Test Item Value Reference Range Interpretation Comments FIBRINOGEN LEVEL (BEAKER) (test 253 mg/dl 225-434 code = 658) PROTHROMBIN [id number] 20:59:00 Test Item Value Reference Range Interpretation Comments PROTIME (BEAKER) (test code = 16.4 seconds 11.7-14.7 H 759) INR (BEAKER) (test code = 370) 1.3 <=5.9 RECOMMENDED COUMADIN/WARFARIN INR THERAPY RANGESSTANDARD DOSE: 2.0 - 3.0 Includes: PROPHYLAXIS forvenous thrombosis, systemic embolization; TREATMENT for venous thrombosis and/or pulmonary embolus.HIGH RISK: Target INR is 2.5-3.5 for patients with mechanical heart valves.BLOOD GAS, [id number] 20:47:00 Test Item Value Reference Range Interpretation [...] (test code = 1819) 40.0 % GLUCOSE-STAT [id number] 20:47:00 Test Item Value Reference Range Interpretation Comments GLUCOSE RANDOM (BEAKER) (test code 235 mg/dL 70-110 H = 652) CALCIUM, [id number] 20:47:00 Test Item Value Reference Range Interpretation Comments CALCIUM IONIZED (BEAKER) (test 0.97 mmol/L 1.12-1.27 L code = 698) PH, BLOOD (BEAKER) (test code = 7.39 1810) HGB/HCT (H&H) - STAT [id number] 20:46:00 Test Item Value Reference Range Interpretation Comments HEMOGLOBIN (BEAKER) (test code = 7.7 g/dL 13.0-16.8 L 410) HEMATOCRIT (BEAKER) (test code = 23.0 % 40.0-50.0 L 411) POTASSIUM-STAT [id number] 20:46:00 Test Item Value Reference Range Interpretation Comments POTASSIUM (BEAKER) (test code = 3.4 meq/L 3.6-5.5 L 379) SODIUM NA-STAT [id number] 20:46:00 Test Item Value Reference Range Interpretation Comments SODIUM (BEAKER) (test code = 381) 133 meq/L 135-148 L OXYGEN SATURATION, [id number] 20:42:00 Test Item Value Reference Range Interpretation Comments O2 SATURATION (MEASURED) (BEAKER) 74.1 % (test code = 1455) BLOOD GAS, [id number] 18:58:00 Test Item Value Reference Range Interpretation [...] code = 1819) 100.0 % SODIUM NA-STAT [id number] 18:58:00 Test Item Value Reference Range Interpretation Comments SODIUM (BEAKER) (test code = 381) 131 meq/L 135-148 L POTASSIUM-STAT [id number] 18:58:00 Test Item Value Reference Range Interpretation Comments POTASSIUM (BEAKER) (test code = 3.4 meq/L 3.6-5.5 L 379) GLUCOSE-STAT [id number] 18:58:00 Test Item Value Reference Range Interpretation Comments GLUCOSE RANDOM (BEAKER) (test code 214 mg/dL 70-110 H = 652) HGB/HCT (H&H) - STAT [id number] 18:58:00 Test Item Value Reference Range Interpretation [...] % 0.0-5.0 code = 1414) BLOOD GAS, [id number] 18:11:00 Test Item Value Reference Range Interpretation [...] code = 1819) 97.0 % SODIUM NA-STAT [id number] 18:11:00 Test Item Value Reference Range Interpretation Comments SODIUM (BEAKER) (test code = 381) 132 meq/L 135-148 L GLUCOSE-STAT [id number] 18:11:00 Test Item Value Reference Range Interpretation Comments GLUCOSE RANDOM (BEAKER) (test code 200 mg/dL 70-110 H = 652) HGB/HCT (H&H) - STAT [id number] 18:11:00 Test Item Value Reference Range Interpretation Comments HEMOGLOBIN (BEAKER) (test code = 8.2 g/dL 13.0-16.8 L 410) HEMATOCRIT (BEAKER) (test code = 24.0 % 40.0-50.0 L 411) POTASSIUM-STAT [id number] 18:07:00 Test Item Value Reference Range Interpretation Comments POTASSIUM (BEAKER) (test code = 3.5 meq/L 3.6-5.5 L 379) [id number] 16:37:00 Test Item Value Reference Range Interpretation Comments PHOSPHORUS (BEAKER) (test code = 2.5 mg/dL 2.3-4.7 604) [id number] 16:37:00 Test Item Value Reference Range Interpretation Comments MAGNESIUM (BEAKER) (test code = 2.1 mg/dL 1.6-2.6 627) [id number] 16:29:00 Test Item Value Reference Range Interpretation [...] for patients with mechanical heart valves.BLOOD GAS, [id number] 16:16:00 Test Item Value Reference Range Interpretation [...] (test code = 1819) 40.0 % CALCIUM, [id number] 16:14:00 Test Item Value Reference Range Interpretation Comments CALCIUM IONIZED (BEAKER) (test 1.09 mmol/L 1.12-1.27 L code = 698) PH, BLOOD (BEAKER) (test code = 7.64 1810) GLUCOSE-STAT [id number] 16:12:00 Test Item Value Reference Range Interpretation Comments GLUCOSE RANDOM (BEAKER) (test code 182 mg/dL 70-110 H = 652) CALCIUM, [id number] 12:53:00 Test Item Value Reference Range Interpretation Comments CALCIUM IONIZED (BEAKER) (test 1.12 mmol/L 1.12-1.27 code = 698) PH, BLOOD (BEAKER) (test code = 7.51 1810) BLOOD GAS, [id number] 12:53:00 Test Item Value Reference Range Interpretation [...] 1819) 40.0 % HGB/HCT (H&H) - STAT [id number] 12:53:00 Test Item Value Reference Range Interpretation Comments HEMOGLOBIN (BEAKER) (test code = 8.3 g/dL 13.0-16.8 L 410) HEMATOCRIT (BEAKER) (test code = 24.0 % 40.0-50.0 L 411) GLUCOSE-STAT [id number] 12:53:00 Test Item Value Reference Range Interpretation Comments GLUCOSE RANDOM (BEAKER) (test code 185 mg/dL 70-110 H = 652) POTASSIUM-STAT [id number] 12:52:00 Test Item Value Reference Range Interpretation Comments POTASSIUM (BEAKER) (test code = 3.7 meq/L 3.6-5.5 379) CBC W/PLT COUNT & AUTO [id number] 11:04:00 Test Item Value Reference Range Interpretation [...] 0-0 H (test code = 413) POTASSIUM-STAT [id number] 10:49:00 Test Item Value Reference Range Interpretation Comments POTASSIUM (BEAKER) (test code = 3.8 meq/L 3.6-5.5 379) HEPARIN ASSAY - [id number] 09:55:00 Test Item Value Reference Range Interpretation Comments UNFRACTIONATED HEPARIN-ANTI 10A 0.14 u/ml 0.30-0.70 L (BEAKER) (test code = 1606) Recommendations for Monitoring Unfractionated Heparin Therapeutic Range: 0.3- 0.7 u/mL with continuous IV [id number] 09:54:00 Test Item Value Reference Range Interpretation Comments PARTIAL THROMBOPLASTIN TIME 57.6 seconds 22.5-36.0 H (BEAKER) (test code = 760) BLOOD GAS, [id number] 09:33:00 Test Item Value Reference Range Interpretation [...] (test code = 1819) 40.0 % GLUCOSE-STAT [id number] 09:33:00 Test Item Value Reference Range Interpretation Comments GLUCOSE RANDOM (BEAKER) (test code 192 mg/dL 70-110 H = 652) GLUCOSE-STAT [id number] 09:33:00 Test Item Value Reference Range Interpretation Comments GLUCOSE RANDOM (BEAKER) (test code 192 mg/dL 70-110 H = 652) CALCIUM, [id number] 09:32:00 Test Item Value Reference Range Interpretation Comments CALCIUM IONIZED (BEAKER) (test 1.15 mmol/L 1.12-1.27 code = 698) PH, BLOOD (BEAKER) (test code = 7.51 1810) BLOOD GAS, [id number] 07:23:00 Test Item Value Reference Range Interpretation [...] % 0.0-5.0 code = 1414) BLOOD GAS, [id number] 06:13:00 Test Item Value Reference Range Interpretation [...] code = 1819) 40.0 % BLOOD GAS, [id number] 05:13:00 Test Item Value Reference Range Interpretation [...] (BEAKER) (test code = 1819) 100.0 % [id number] 04:41:00 Test Item Value Reference Range Interpretation Comments PARTIAL THROMBOPLASTIN TIME 61.3 seconds 22.5-36.0 H (BEAKER) (test code = 760) RAD, CHEST, 1 VIEW, NON [id number] 04:38:00Reason for exam:- >impella/ECMO/intubationShould this be performed at the bedside?->YesFINAL REPORT CLINICAL INDICATION: Support lines. Comparison: 01/12/2018 The cardiomediastinal contours are stable. Central pulmonary vascular prominence and bilateral parenchymalopacities are previous. There is no pneumothorax. Support lines are stable. Signed: Kellen Parra MDReport Verified Date/Time: 01/13/2018 04:38:41 Reading Location: [address] Reading Room HEPATIC FUNCTION [id number] 04:25:00 Test Item Value Reference Range Interpretation [...] 2232 U/L 6-55 H 347) Specimen slightly [id number] 04:19:00 Test Item Value Reference Range Interpretation Comments PHOSPHORUS (BEAKER) (test code = 4.1 mg/dL 2.3-4.7 604) [id number] 04:19:00 Test Item Value Reference Range Interpretation Comments MAGNESIUM (BEAKER) (test code = 1.9 mg/dL 1.6-2.6 627) [id number] 04:19:00 Test Item Value Reference Range Interpretation Comments CALCIUM (BEAKER) (test code = 697) 8.6 mg/dL 8.4-10.2 BASIC METABOLIC [id number] 04:19:00 Test Item Value Reference Range Interpretation [...] 1658 U/L 125-220 H code = 635) [id number] 04:16:00 Test Item Value Reference Range Interpretation Comments FIBRINOGEN LEVEL (BEAKER) (test 299 mg/dl 225-434 code = 658) LACTIC ACID, ARTERIAL, WHOLE [id number] 04:16:00 Test Item Value Reference Range Interpretation Comments LACTATE BLOOD ARTERIAL (2) 0.8 mmol/L 0.5-2.2 (BEAKER) (test code = 2874) Effective 01/04/2016: Units/Reference Range ChangeNew: 0.5-2.2 mmol/L Previous: 5-20 mg/dLSpecimen slightly ictericPROTHROMBIN [id number] 04:15:00 Test Item Value Reference Range Interpretation Comments PROTIME (BEAKER) (test code = 15.8 seconds 11.7-14.7 H 759) INR (BEAKER) (test code = 370) 1.3 <=5.9 RECOMMENDED COUMADIN/WARFARIN INR THERAPY RANGESSTANDARD DOSE: 2.0 - 3.0 Includes: PROPHYLAXIS forvenous thrombosis, systemic embolization; TREATMENT for venous thrombosis and/or pulmonary embolus.HIGH RISK: Target INR is 2.5-3.5 for patients with mechanical heart valves.CALCIUM, [id number] 04:04:00 Test Item Value Reference Range Interpretation Comments CALCIUM IONIZED (BEAKER) (test 1.15 mmol/L 1.12-1.27 code = 698) PH, BLOOD (BEAKER) (test code = 7.33 1810) BLOOD GAS, [id number] 04:03:00 Test Item Value Reference Range Interpretation [...] (test code = 1819) 40.0 % PLATELET [id number] 03:58:00 Test Item Value Reference Range Interpretation Comments PLATELET COUNT (BEAKER) (test code 89 K/CU MM 150-450 L = 756) OXYGEN SATURATION, [id number] 03:57:00 Test Item Value Reference Range Interpretation Comments O2 SATURATION (MEASURED) (BEAKER) 79.4 % (test code = 1455) BLOOD GAS, [id number] 01:19:00 Test Item Value Reference Range Interpretation [...] (test code = 1819) 40.0 % GLUCOSE-STAT [id number] 01:19:00 Test Item Value Reference Range Interpretation Comments GLUCOSE RANDOM (BEAKER) (test code 177 mg/dL 70-110 H = 652) POTASSIUM-STAT [id number] 01:18:00 Test Item Value Reference Range Interpretation Comments POTASSIUM (BEAKER) (test code = 4.0 meq/L 3.6-5.5 379) CALCIUM, [id number] 01:17:00 Test Item Value Reference Range Interpretation [...] (test 0.0 % 0.0-5.0 code = 1414) [id number] 20:36:00 Test Item Value Reference Range Interpretation Comments POTASSIUM (BEAKER) (test code = 4.2 meq/L 3.5-5.1 379) [id number] 20:36:00 Test Item Value Reference Range Interpretation Comments MAGNESIUM (BEAKER) (test code = 1.8 mg/dL 1.6-2.6 627) [id number] 20:36:00 Test Item Value Reference Range Interpretation Comments PHOSPHORUS (BEAKER) (test code = 3.5 mg/dL 2.3-4.7 604) LACTIC ACID, ARTERIAL, WHOLE [id number] 20:33:00 Test Item Value Reference Range Interpretation Comments LACTATE BLOOD ARTERIAL (2) 0.8 mmol/L 0.5-2.2 (BEAKER) (test code = 2874) Effective 01/04/2016: Units/Reference Range ChangeNew: 0.5-2.2 mmol/L Previous: 5-20 mg/dLSpecimen slightly ictericBLOOD GAS, [id number] 20:20:00 Test Item Value Reference Range Interpretation [...] (test code = 1819) 40.0 % GLUCOSE-STAT [id number] 20:20:00 Test Item Value Reference Range Interpretation Comments GLUCOSE RANDOM (BEAKER) (test code 180 mg/dL 70-110 H = 652) [id number] 18:34:00 Test Item Value Reference Range Interpretation Comments GLUCOSE RANDOM (BEAKER) (test code 218 mg/dL 70-105 H = 652) BLOOD GAS, [id number] 18:18:00 Test Item Value Reference Range Interpretation [...] (BEAKER) (test code = 1819) 40.0 % [id number] 17:12:00 Test Item Value Reference Range Interpretation Comments PARTIAL THROMBOPLASTIN TIME 54.1 seconds 22.5-36.0 H (BEAKER) (test code = 760) [id number] 17:12:00 Test Item Value Reference Range Interpretation Comments FIBRINOGEN LEVEL (BEAKER) (test 285 mg/dl 225-434 code = 658) PROTHROMBIN TIME/[id number] 17:10:00 Test Item Value Reference Range Interpretation [...] ChangeNew: 0.5-2.2 mmol/L Previous: 5-20 mg/dLSpecimen slightly [id number] 17:01:00 Test Item Value Reference Range Interpretation Comments POTASSIUM (BEAKER) (test code = 4.5 meq/L 3.5-5.1 379) [id number] 17:01:00 Test Item Value Reference Range Interpretation Comments GLUCOSE RANDOM (BEAKER) (test code 239 mg/dL 70-105 H = 652) PLATELET [id number] 16:46:00 Test Item Value Reference Range Interpretation Comments PLATELET COUNT (BEAKER) (test code 86 K/CU MM 150-450 L = 756) BLOOD GAS, [id number] 16:36:00 Test Item Value Reference Range Interpretation [...] (test 37.0 C code = 1818) CALCIUM, [id number] 16:36:00 Test Item Value Reference Range Interpretation Comments CALCIUM IONIZED (BEAKER) (test 1.08 mmol/L 1.12-1.27 L code = 698) PH, BLOOD (BEAKER) (test code = 7.46 1810) [id number] 15:00:00 Test Item Value Reference Range Interpretation Comments POTASSIUM (BEAKER) (test code = 4.7 meq/L 3.5-5.1 379) [id number] 15:00:00 Test Item Value Reference Range Interpretation Comments GLUCOSE RANDOM (BEAKER) (test code 210 mg/dL 70-105 H = 652) BLOOD GAS, [id number] 14:42:00 Test Item Value Reference Range Interpretation [...] 40.0 % RAD, CHEST, 1 VIEW, NON [id number] 14:41:00Reason for exam:->chest tube insertionFINAL REPORT CHEST [...] MDReport Verified Date/Time: 01/12/2018 14:41:22 Reading Location: [facility] C013T Transitional Reading Room MBOELASTOGRAPH (TEG)2018-01-12 12:43:00 [...] (test 0.0 % 0.0-5.0 code = 1414) [id number] 11:23:00 Test Item Value Reference Range Interpretation [...] exclusion of thrombosis is within 95-100% range. [id number] 10:10:00 Test Item Value Reference Range Interpretation Comments MAGNESIUM (BEAKER) 2.1 mg/dL 1.6-2.6 Specimen slightly (test code = 627) hemolyzed [id number] 10:10:00 Test Item Value Reference Range Interpretation Comments PHOSPHORUS (BEAKER) 4.2 mg/dL 2.3-4.7 Specimen slightly (test code = 604) hemolyzed [id number] 10:10:00 Test Item Value Reference Range Interpretation Comments POTASSIUM (BEAKER) 5.0 meq/L 3.5-5.1 Specimen slightly (test code = 379) hemolyzed [id number] 10:10:00 Test Item Value Reference Range Interpretation Comments GLUCOSE RANDOM (BEAKER) (test code 204 mg/dL 70-105 H = 652) [id number] 10:07:00 Test Item Value Reference Range Interpretation Comments FIBRINOGEN LEVEL (BEAKER) (test 251 mg/dl 225-434 code = 658) ANTITHROMBIN [id number] 10:04:00 Test Item Value Reference Range Interpretation Comments ANTITHROMBIN III ACTIVITY (BEAKER) 46.0 % 80.0-120.0 L (test code = 711) [id number] 09:58:00 Test Item Value Reference Range Interpretation Comments PARTIAL THROMBOPLASTIN TIME 59.8 seconds 22.5-36.0 H (BEAKER) (test code = 760) PROTHROMBIN [id number] 09:57:00 Test Item Value Reference Range Interpretation Comments PROTIME (BEAKER) (test code = 19.3 seconds 11.7-14.7 H 759) INR (BEAKER) (test code = 370) 1.6 <=5.9 RECOMMENDED COUMADIN/WARFARIN INR THERAPY RANGESSTANDARD DOSE: 2.0 - 3.0 Includes: PROPHYLAXIS forvenous thrombosis, systemic embolization; TREATMENT for venous thrombosis and/or pulmonary embolus.HIGH RISK: Target INR is 2.5-3.5 for patients with mechanical heart valves.PLATELET [id number] 09:49:00 Test Item Value Reference Range Interpretation Comments PLATELET COUNT (BEAKER) (test code 94 K/CU MM 150-450 L = 756) BLOOD GAS, [id number] 09:47:00 Test Item Value Reference Range Interpretation [...] (test code = 1819) 40.0 % CALCIUM, [id number] 09:46:00 Test Item Value Reference Range Interpretation Comments CALCIUM IONIZED (BEAKER) (test 1.12 mmol/L 1.12-1.27 code = 698) PH, BLOOD (BEAKER) (test code = 7.47 1810) HEPARIN ASSAY - [id number] 08:21:00 Test Item Value Reference Range Interpretation Comments UNFRACTIONATED HEPARIN-ANTI 10A < u/ml 0.30-0.70 L (BEAKER) (test code = 1606) Recommendations for Monitoring Unfractionated Heparin Therapeutic Range: 0.3- 0.7 u/mL with continuous IV infusionLACTATE DEHYDROGENASE (LDH)2018-01-12 07:40:00 Test Item Value Reference Range Interpretation Comments LACTATE DEHYDROGENASE (BEAKER) (test 3247 U/L 125-220 H code = 635) [id number] 07:38:00 Test Item Value Reference Range Interpretation Comments MAGNESIUM (BEAKER) (test code = 2.3 mg/dL 1.6-2.6 627) [id number] 07:38:00 Test Item Value Reference Range Interpretation Comments GLUCOSE RANDOM (BEAKER) (test code 217 mg/dL 70-105 H = 652) LACTIC ACID, ARTERIAL, WHOLE [id number] 07:27:00 Test Item Value Reference Range Interpretation Comments LACTATE BLOOD ARTERIAL (2) 1.4 mmol/L 0.5-2.2 (BEAKER) (test code = 2874) Effective 01/04/2016: Units/Reference Range ChangeNew: 0.5-2.2 mmol/L Previous: 5-20 mg/dLSpecimen slightly ictericGLUCOSE-STAT [id number] 06:55:00 Test Item Value Reference Range Interpretation Comments GLUCOSE RANDOM (BEAKER) (test code 212 mg/dL 70-110 H = 652) BLOOD GAS, [id number] 06:55:00 Test Item Value Reference Range Interpretation [...] (test code = 1819) 40.0 % POTASSIUM-STAT [id number] 06:52:00 Test Item Value Reference Range Interpretation Comments POTASSIUM (BEAKER) (test code = 4.8 meq/L 3.6-5.5 379) BLOOD GAS, [id number] 06:43:00 Test Item Value Reference Range Interpretation [...] 100.0 % RAD, CHEST, 1 VIEW, NON [id number] 06:14:00Reason for exam:- >impella/ECMO/intubationShould this be performed [...] MDReport Verified Date/Time: 01/12/2018 06:14:29 Reading Location: [address] Transitional Reading Room LACTATE DEHYDROGENASE (LDH)2018-01-12 05:03:00 Test Item Value Reference Range Interpretation Comments LACTATE DEHYDROGENASE (BEAKER) (test 3014 U/L 125-220 H code = 635) HEPATIC FUNCTION [id number] 05:03:00 Test Item Value Reference Range Interpretation [...] 1544 U/L 6-55 H 347) Specimen slightly [id number] 05:01:00 Test Item Value Reference Range Interpretation Comments PHOSPHORUS (BEAKER) (test code = 5.0 mg/dL 2.3-4.7 H 604) [id number] 05:01:00 Test Item Value Reference Range Interpretation Comments MAGNESIUM (BEAKER) (test code = 2.1 mg/dL 1.6-2.6 627) [id number] 05:01:00 Test Item Value Reference Range Interpretation Comments CALCIUM (BEAKER) (test code = 697) 8.5 mg/dL 8.4-10.2 BASIC METABOLIC [id number] 05:01:00 Test Item Value Reference Range Interpretation [...] TS. Specimen slightly ictericLACTIC ACID, ARTERIAL, WHOLE [id number] 04:42:00 Test Item Value Reference Range Interpretation Comments LACTATE BLOOD ARTERIAL (2) 1.5 mmol/L 0.5-2.2 (BEAKER) (test code = 2874) Effective 01/04/2016: Units/Reference Range ChangeNew: 0.5-2.2 mmol/L Previous: 5-20 mg/dLSpecimen slightly [id number] 04:38:00 Test Item Value Reference Range Interpretation Comments FIBRINOGEN LEVEL (BEAKER) (test 252 mg/dl 225-434 code = 658) [id number] 04:38:00 Test Item Value Reference Range Interpretation Comments PARTIAL THROMBOPLASTIN TIME 54.6 seconds 22.5-36.0 H (BEAKER) (test code = 760) CBC W/PLT COUNT & AUTO [id number] 04:37:00 Test Item Value Reference Range Interpretation [...] PERCENT (BEAKER) (test code = 2801) PROTHROMBIN [id number] 04:37:00 Test Item Value Reference Range Interpretation Comments PROTIME (BEAKER) (test code = 19.9 seconds 11.7-14.7 H 759) INR (BEAKER) (test code = 370) 1.7 <=5.9 RECOMMENDED COUMADIN/WARFARIN INR THERAPY RANGESSTANDARD DOSE: 2.0 - 3.0 Includes: PROPHYLAXIS forvenous thrombosis, systemic embolization; TREATMENT for venous thrombosis and/or pulmonary embolus.HIGH RISK: Target INR is 2.5-3.5 for patients with mechanical heart valves.CALCIUM, [id number] 04:31:00 Test Item Value Reference Range Interpretation Comments CALCIUM IONIZED (BEAKER) (test 1.12 mmol/L 1.12-1.27 code = 698) PH, BLOOD (BEAKER) (test code = 7.42 1810) BLOOD GAS, [id number] 04:30:00 Test Item Value Reference Range Interpretation [...] (test code = 1819) 40.0 % PLATELET [id number] 04:23:00 Test Item Value Reference Range Interpretation Comments PLATELET COUNT (BEAKER) (test 110 K/CU MM 150-450 L code = 756) OXYGEN SATURATION, [id number] 04:14:00 Test Item Value Reference Range Interpretation Comments O2 SATURATION (MEASURED) (BEAKER) 79.7 % (test code = 1455) [id number] 02:54:00 Test Item Value Reference Range Interpretation Comments PARTIAL THROMBOPLASTIN TIME 134.3 seconds 22.5-36.0 H (BEAKER) (test code = 760) [id number] 02:25:00 Test Item Value Reference Range Interpretation Comments PARTIAL THROMBOPLASTIN TIME 94.0 seconds 22.5-36.0 H (BEAKER) (test code = 760) BLOOD GAS, [id number] 01:56:00 Test Item Value Reference Range Interpretation [...] (test code = 1819) 40.0 % GLUCOSE-STAT [id number] 01:53:00 Test Item Value Reference Range Interpretation Comments GLUCOSE RANDOM (BEAKER) (test code 201 mg/dL 70-110 H = 652) POTASSIUM-STAT [id number] 01:52:00 Test Item Value Reference Range Interpretation Comments POTASSIUM (BEAKER) (test code = 4.9 meq/L 3.6-5.5 379) LACTIC ACID, ARTERIAL, WHOLE [id number] 01:18:00 Test Item Value Reference Range Interpretation Comments LACTATE BLOOD ARTERIAL (2) 2.0 mmol/L 0.5-2.2 (BEAKER) (test code = 2874) Effective 01/04/2016: Units/Reference Range ChangeNew: 0.5-2.2 mmol/L Previous: 5-20 mg/dLSpecimen slightly [id number] 01:18:00 Test Item Value Reference Range Interpretation Comments POTASSIUM (BEAKER) (test code = 5.1 meq/L 3.5-5.1 379) [id number] 01:18:00 Test Item Value Reference Range Interpretation Comments GLUCOSE RANDOM (BEAKER) (test code 194 mg/dL 70-105 H = 652) PROTHROMBIN [id number] 01:15:00 Test Item Value Reference Range Interpretation Comments PROTIME (BEAKER) (test code = 21.2 seconds 11.7-14.7 H 759) INR (BEAKER) (test code = 370) 1.8 <=5.9 RECOMMENDED COUMADIN/WARFARIN INR THERAPY RANGESSTANDARD DOSE: 2.0 - 3.0 Includes: PROPHYLAXIS forvenous thrombosis, systemic embolization; TREATMENT for venous thrombosis and/or pulmonary embolus.HIGH RISK: Target INR is 2.5-3.5 for patients with mechanical heart valves.[id number] 01:15:00 Test Item Value Reference Range Interpretation Comments FIBRINOGEN LEVEL (BEAKER) (test 233 mg/dl 225-434 code = 658) PLATELET [id number] 01:01:00 Test Item Value Reference Range Interpretation Comments PLATELET COUNT (BEAKER) (test code 84 K/CU MM 150-450 L = 756) BLOOD GAS, [id number] 01:00:00 Test Item Value Reference Range Interpretation [...] (test code = 1819) 40.0 % CALCIUM, [id number] 01:00:00 Test Item Value Reference Range Interpretation [...] 0.0-5.0 (BEAKER) (test code = 1414) GLUCOSE-STAT [id number] 23:53:00 Test Item Value Reference Range Interpretation Comments GLUCOSE RANDOM (BEAKER) (test code 182 mg/dL 70-110 H = 652) BLOOD GAS, [id number] 23:52:00 Test Item Value Reference Range Interpretation [...] FIO2 (BEAKER) (test code = 1819) 40 [id number] 23:05:00 Test Item Value Reference Range Interpretation Comments PARTIAL THROMBOPLASTIN TIME > seconds 22.5-36.0 HH (BEAKER) (test code = 760) BLOOD GAS, [id number] 23:01:00 Test Item Value Reference Range Interpretation [...] (BEAKER) (test code = 1819) 100.0 % [id number] 22:46:00 Test Item Value Reference Range Interpretation Comments FIBRINOGEN LEVEL (BEAKER) (test 223 mg/dl 225-434 L code = 658) PROTHROMBIN [id number] 22:45:00 Test Item Value Reference Range Interpretation Comments PROTIME (BEAKER) (test code = 23.0 seconds 11.7-14.7 H 759) INR (BEAKER) (test code = 370) 2.0 <=5.9 RECOMMENDED COUMADIN/WARFARIN INR THERAPY RANGESSTANDARD DOSE: 2.0 - 3.0 Includes: PROPHYLAXIS forvenous thrombosis, systemic embolization; TREATMENT for venous thrombosis and/or pulmonary embolus.HIGH RISK: Target INR is 2.5-3.5 for patients with mechanical heart valves.BLOOD GAS, [id number] 22:22:00 Test Item Value Reference Range Interpretation [...] (test code = 1819) 40.0 % CALCIUM, [id number] 22:21:00 Test Item Value Reference Range Interpretation Comments CALCIUM IONIZED (BEAKER) (test 1.05 mmol/L 1.12-1.27 L code = 698) PH, BLOOD (BEAKER) (test code = 7.67 1810) PLATELET [id number] 22:21:00 Test Item Value Reference Range Interpretation Comments PLATELET COUNT (BEAKER) (test code 71 K/CU MM 150-450 L = 756) GLUCOSE-STAT [id number] 22:20:00 Test Item Value Reference Range Interpretation Comments GLUCOSE RANDOM (BEAKER) (test code 189 mg/dL 70-110 H = 652) POTASSIUM-STAT [id number] 22:19:00 Test Item Value Reference Range Interpretation [...] 2133 U/L 125-220 H code = 635) [id number] 20:55:00 Test Item Value Reference Range Interpretation Comments POTASSIUM (BEAKER) (test code = 5.4 meq/L 3.5-5.1 H 379) [id number] 20:55:00 Test Item Value Reference Range Interpretation Comments MAGNESIUM (BEAKER) (test code = 1.6 mg/dL 1.6-2.6 627) [id number] 20:55:00 Test Item Value Reference Range Interpretation Comments PHOSPHORUS (BEAKER) (test code = 2.9 mg/dL 2.3-4.7 604) GLUCOSE-STAT [id number] 20:31:00 Test Item Value Reference Range Interpretation Comments GLUCOSE RANDOM (BEAKER) (test code 166 mg/dL 70-110 H = 652) POTASSIUM-STAT [id number] 20:30:00 Test Item Value Reference Range Interpretation Comments POTASSIUM (BEAKER) (test code = 5.2 meq/L 3.6-5.5 379) BLOOD GAS, [id number] 20:30:00 Test Item Value Reference Range Interpretation [...] code = 1819) 40.0 % OXYGEN SATURATION, [id number] 18:46:00 Test Item Value Reference Range Interpretation Comments O2 SATURATION (MEASURED) (BEAKER) 81.5 % (test code = 1455) RAD, CHEST, 1 VIEW, NON [id number] 18:27:00Reason for exam:->impella/ECMO placementShould this be performed [...] MDReport Verified Date/Time: 01/11/2018 18:27:33 Reading Location: [address] Ortho Consult Reading Room [id number] 18:11:00 Test Item Value Reference Range Interpretation Comments PARTIAL THROMBOPLASTIN TIME > seconds 22.5-36.0 HH (BEAKER) (test code = 760) LACTATE DEHYDROGENASE (LDH)2018-01-11 18:09:00 Test Item Value Reference Range Interpretation Comments LACTATE DEHYDROGENASE 1590 U/L 125-220 H Specim en slightly (BEAKER) (test code = hemoly zed 635) BASIC METABOLIC [id number] 18:08:00 Test Item Value Reference Range Interpretation [...] S NOT APPLICABLE FOR DIALYSIS PATIEN TS. [id number] 17:54:00 Test Item Value Reference Range Interpretation Comments MAGNESIUM (BEAKER) 1.8 mg/dL 1.6-2.6 Specimen slightly (test code = 627) hemolyzed [id number] 17:54:00 Test Item Value Reference Range Interpretation Comments PHOSPHORUS (BEAKER) 4.6 mg/dL 2.3-4.7 Specimen slightly (test code = 604) hemolyzed LACTIC ACID, ARTERIAL, WHOLE [id number] 17:53:00 Test Item Value Reference Range Interpretation Comments LACTATE BLOOD 10.8 mmol/L 0.5-2.2 H Specimen sligh tly ARTERIAL (2) (BEAKER) hemoly zed (test code = 2874) Effective 01/04/2016: Units/Reference Range ChangeNew: 0.5-2.2 mmol/L Previous: 5-20 mg/[id number] 17:46:00 Test Item Value Reference Range Interpretation [...] exclusion of thrombosis is within 95-100% range. [id number] 17:46:00 Test Item Value Reference Range Interpretation Comments FIBRINOGEN LEVEL (BEAKER) (test 201 mg/dl 225-434 L code = 658) PROTHROMBIN [id number] 17:45:00 Test Item Value Reference Range Interpretation Comments PROTIME (BEAKER) (test code = 24.4 seconds 11.7-14.7 H 759) INR (BEAKER) (test code = 370) 2.2 <=5.9 RECOMMENDED COUMADIN/WARFARIN INR THERAPY RANGESSTANDARD DOSE: 2.0 - 3.0 Includes: PROPHYLAXIS forvenous thrombosis, systemic embolization; TREATMENT for venous thrombosis and/or pulmonary embolus.HIGH RISK: Target INR is 2.5-3.5 for patients with mechanical heart valves.BLOOD GAS, [id number] 17:44:00 Test Item Value Reference Range Interpretation [...] code = 1819) 40.0 % SODIUM NA-STAT [id number] 17:44:00 Test Item Value Reference Range Interpretation Comments SODIUM (BEAKER) (test code = 381) 134 meq/L 135-148 L POTASSIUM-STAT [id number] 17:44:00 Test Item Value Reference Range Interpretation Comments POTASSIUM (BEAKER) (test code = 6.2 meq/L 3.6-5.5 HH 379) GLUCOSE-STAT [id number] 17:44:00 Test Item Value Reference Range Interpretation Comments GLUCOSE RANDOM (BEAKER) (test code 147 mg/dL 70-110 H = 652) HGB/HCT (H&H) - STAT [id number] 17:44:00 Test Item Value Reference Range Interpretation Comments HEMOGLOBIN (BEAKER) (test code = 9.9 g/dL 13.0-16.8 L 410) HEMATOCRIT (BEAKER) (test code = 29.0 % 40.0-50.0 L 411) CALCIUM, [id number] 17:41:00 Test Item Value Reference Range Interpretation Comments CALCIUM IONIZED (BEAKER) (test 1.03 mmol/L 1.12-1.27 L code = 698) PH, BLOOD (BEAKER) (test code = 7.52 1810) OXYGEN SATURATION, [id number] 17:39:00 Test Item Value Reference Range Interpretation Comments O2 SATURATION (MEASURED) (BEAKER) 84.5 % (test code = 1455) CBC W/PLT COUNT & AUTO [id number] 17:37:00 Test Item Value Reference Range Interpretation [...] 0-1 PERCENT (BEAKER) (test code = 2801) [id number] 16:35:00 Test Item Value Reference Range Interpretation Comments ACTIVATED CLOTTING TIME 230 sec TEST ED AT [place] [address] (BEAKER) (test code = [facility] 441) [address] [id number] 16:35:00 Test Item Value Reference Range Interpretation Comments ACTIVATED CLOTTING TIME 191 sec TEST ED AT [place] [address] (BEAKER) (test code = [place] [address]) [address] BLOOD GAS, [id number] 16:20:00 Test Item Value Reference Range Interpretation [...] (test code = 1819) 100 BLOOD GAS, [id number] 16:19:00 Test Item Value Reference Range Interpretation [...] drawn from ECMO circuitLACTIC ACID, ARTERIAL, WHOLE [id number] 14:07:00 Test Item Value Reference Range Interpretation Comments LACTATE BLOOD 13.1 mmol/L 0.5-2.2 H Specimen sligh tly ARTERIAL (2) (BEAKER) hemoly zed (test code = 2874) Effective 01/04/2016: Units/Reference Range ChangeNew: 0.5-2.2 mmol/L Previous: 5-20 mg/dLPROTHROMBIN [id number] 14:01:00 Test Item Value Reference Range Interpretation Comments PROTIME (BEAKER) (test code = 20.9 seconds 11.7-14.7 H 759) INR (BEAKER) (test code = 370) 1.8 <=5.9 RECOMMENDED COUMADIN/WARFARIN INR THERAPY RANGESSTANDARD DOSE: 2.0 - 3.0 Includes: PROPHYLAXIS forvenous thrombosis, systemic embolization; TREATMENT for venous thrombosis and/or pulmonary embolus.HIGH RISK: Target INR is 2.5-3.5 for patients with mechanical heart valves.[id number] 14:01:00 Test Item Value Reference Range Interpretation Comments FIBRINOGEN LEVEL (BEAKER) (test 227 mg/dl 225-434 code = 658) PLATELET [id number] 13:54:00 Test Item Value Reference Range Interpretation Comments PLATELET COUNT (BEAKER) (test 115 K/CU MM 150-450 L code = 756) BLOOD GAS, [id number] 13:47:00 Test Item Value Reference Range Interpretation [...] (test code = 1819) 40.0 % GLUCOSE-STAT [id number] 13:47:00 Test Item Value Reference Range Interpretation Comments GLUCOSE RANDOM (BEAKER) (test code 134 mg/dL 70-110 H = 652) [id number] 12:33:00 Test Item Value Reference Range Interpretation Comments POTASSIUM (BEAKER) (test code = 5.6 meq/L 3.5-5.1 H 379) PRN - repeat glucose levels every 1 hour or as specified by insulin titration orders until glucose level is less than 450 mg/[id number] 12:33:00 Test Item Value Reference Range Interpretation Comments GLUCOSE RANDOM (BEAKER) (test code = 43 mg/dL 70-105 L 652) PRN - repeat glucose levels every 1 hour or as specified by insulin titration orders until glucose level is less than 450 mg/dLBASIC METABOLIC [id number] 11:05:00 Test Item Value Reference Range Interpretation [...] until glucose level is less than 450 mg/[id number] 11:05:00 Test Item Value Reference Range Interpretation Comments GLUCOSE RANDOM (BEAKER) (test code = 34 mg/dL 70-105 LL 652) [id number] 10:44:00 Test Item Value Reference Range Interpretation Comments POTASSIUM (BEAKER) (test code = 5.9 meq/L 3.5-5.1 H 379) HEPATIC FUNCTION [id number] 10:44:00 Test Item Value Reference Range Interpretation [...] Previous: 5-20 mg/dLCBC W/PLT COUNT & AUTO [id number] 10:23:00 Test Item Value Reference Range Interpretation [...] (BEAKER) (test code = 2801) BLOOD GAS, [id number] 10:20:00 Test Item Value Reference Range Interpretation [...] (BEAKER) (test code = 1819) 40.0 % [id number] 09:01:00 Test Item Value Reference Range Interpretation Comments POTASSIUM (BEAKER) (test code = 5.9 meq/L 3.5-5.1 H 379) PRN - repeat glucose levels every 1 hour or as specified by insulin titration orders until glucose level is less than 450 mg/[id number] 09:01:00 Test Item Value Reference Range Interpretation Comments MAGNESIUM (BEAKER) (test code = 1.7 mg/dL 1.6-2.6 627) PRN - repeat glucose levels every 1 hour or as specified by insulin titration orders until glucose level is less than 450 mg/[id number] 09:01:00 Test Item Value Reference Range Interpretation Comments PHOSPHORUS (BEAKER) (test code = 4.7 mg/dL 2.3-4.7 604) PRN - repeat glucose levels every 1 hour or as specified by insulin titration orders until glucose level is less than 450 mg/[id number] 09:01:00 Test Item Value Reference Range Interpretation Comments GLUCOSE RANDOM (BEAKER) (test code = 50 mg/dL 70-105 L 652) PRN - repeat glucose levels every 1 hour or as specified by insulin titration orders until glucose level is less than 450 mg/dLCALCIUM, [id number] 08:47:00 Test Item Value Reference Range Interpretation Comments CALCIUM IONIZED (BEAKER) (test 1.24 mmol/L 1.12-1.27 code = 698) PH, BLOOD (BEAKER) (test code = 7.31 1810) [id number] 08:45:00 Test Item Value Reference Range Interpretation Comments PARTIAL THROMBOPLASTIN TIME 53.7 seconds 22.5-36.0 H (BEAKER) (test code = 760) BLOOD GAS, [id number] 08:41:00 Test Item Value Reference Range Interpretation [...] (test code = 1819) 40.0 % PH, [id number] 08:41:00 Test Item Value Reference Range Interpretation Comments PH ARTERIAL (BEAKER) (test code = 383) 7.31 7.35-7.45 L RAD, CHEST, 1 VIEW, NON [id number] 07:31:00Reason for exam:->s/p cardiac surgeryShould this be [...] Xie MDReport VerifiedDate/Time: 01/11/2018 07:31:38 Reading Location: [address] Ortho Consult Reading Room BLOOD GAS, [...] code = 1819) 40.0 % BASIC METABOLIC [id number] 06:12:00 Test Item Value Reference Range Interpretation [...] NOT APPLICABLE FOR DIALYSIS PATIEN TS. POCT-GLUCOSE [id number] 05:58:00 Test Item Value Reference Range Interpretation Comments POC-GLUCOSE METER 121 mg/dL 70-[address] [facility] [address] (BEAKER) (test code = [place]ER [address] [place] [address]) [address] POCT-GLUCOSE [id number] 05:58:00 Test Item Value Reference Range Interpretation Comments POC-GLUCOSE METER 66 mg/dL 70-110 L Will Repea t Test/TESTED (BEAKER) (test code = AT [facility] [address] [place] [id number]) [facility] [address] [id number] 05:51:00 Test Item Value Reference Range Interpretation Comments PHOSPHORUS (BEAKER) (test code = 3.5 mg/dL 2.3-4.7 604) [id number] 05:51:00 Test Item Value Reference Range Interpretation Comments MAGNESIUM (BEAKER) (test code = 1.9 mg/dL 1.6-2.6 627) BLOOD GAS, [id number] 05:47:00 Test Item Value Reference Range Interpretation [...] (test code = 1819) 40.0 % POCT-GLUCOSE [id number] 05:27:00 Test Item Value Reference Range Interpretation Comments POC-GLUCOSE METER 112 mg/dL 70-110 H TESTED AT [place] [address] (BEAKER) (test code = [place] [address]) [address] POCT-GLUCOSE [id number] 05:27:00 Test Item Value Reference Range Interpretation Comments POC-GLUCOSE METER 106 mg/dL 70-110 TESTED AT [place] [address] ([facility]) (test code = [place] 15[address]) [address] POCT-GLUCOSE [id number] 05:26:00 Test Item Value Reference Range Interpretation Comments POC-GLUCOSE METER 66 mg/dL 70-110 L TESTED AT [place] [address] ([facility]) (test code = [place] [facility] [address]) LACTIC ACID, ARTERIAL, WHOLE [id number] 04:59:00 Test Item Value Reference Range Interpretation Comments LACTATE BLOOD 12.2 mmol/L 0.5-2.2 H Specimen sligh tly ARTERIAL (2) (BEAKER) hemoly zed (test code = 2874) Effective 01/04/2016: Units/Reference Range ChangeNew: 0.5-2.2 mmol/L Previous: 5-20 mg/dLCALCIUM, [id number] 04:57:00 Test Item Value Reference Range Interpretation Comments CALCIUM IONIZED (BEAKER) (test 1.33 mmol/L 1.12-1.27 H code = 698) PH, BLOOD (BEAKER) (test code = 7.30 1810) BLOOD GAS, [id number] 04:57:00 Test Item Value Reference Range Interpretation [...] code = 1819) 45.0 % OXYGEN SATURATION, [id number] 04:56:00 Test Item Value Reference Range Interpretation Comments O2 SATURATION (MEASURED) (BEAKER) 83.2 % (test code = 1455) CBC W/PLT COUNT & AUTO [id number] 04:56:00 Test Item Value Reference Range Interpretation [...] PERCENT (BEAKER) (test code = 2801) CALCIUM, [id number] 03:38:00 Test Item Value Reference Range Interpretation Comments CALCIUM IONIZED (BEAKER) (test 1.32 mmol/L 1.12-1.27 H code = 698) PH, BLOOD (BEAKER) (test code = 7.29 1810) BLOOD GAS, [id number] 03:36:00 Test Item Value Reference Range Interpretation [...] 1819) 50.0 % HGB/HCT (H&H) - STAT [id number] 03:36:00 Test Item Value Reference Range Interpretation Comments HEMOGLOBIN (BEAKER) (test code = 12.5 g/dL 13.0-16.8 L 410) HEMATOCRIT (BEAKER) (test code = 37.0 % 40.0-50.0 L 411) OXYGEN SATURATION, [id number] 03:35:00 Test Item Value Reference Range Interpretation Comments O2 SATURATION (MEASURED) (BEAKER) 80.3 % (test code = 1455) GLUCOSE-STAT [id number] 03:34:00 Test Item Value Reference Range Interpretation Comments GLUCOSE RANDOM (BEAKER) (test code = 91 mg/dL 70-110 652) SODIUM NA-STAT [id number] 03:34:00 Test Item Value Reference Range Interpretation Comments SODIUM (BEAKER) (test code = 381) 137 meq/L 135-148 POTASSIUM-STAT [id number] 03:34:00 Test Item Value Reference Range Interpretation Comments POTASSIUM (BEAKER) (test code = 4.6 meq/L 3.6-5.5 379) BLOOD GAS, [id number] 03:01:00 Test Item Value Reference Range Interpretation [...] 1819) 50.0 % HGB/HCT (H&H) - STAT [id number] 03:01:00 Test Item Value Reference Range Interpretation Comments HEMOGLOBIN (BEAKER) (test code = 12.0 g/dL 13.0-16.8 L 410) HEMATOCRIT (BEAKER) (test code = 35.0 % 40.0-50.0 L 411) POTASSIUM-STAT [id number] 03:00:00 Test Item Value Reference Range Interpretation Comments POTASSIUM (BEAKER) (test code = 5.0 meq/L 3.6-5.5 379) GLUCOSE-STAT [id number] 03:00:00 Test Item Value Reference Range Interpretation Comments GLUCOSE RANDOM (BEAKER) (test code 102 mg/dL 70-110 = 652) SODIUM NA-STAT [id number] 03:00:00 Test Item Value Reference Range Interpretation Comments SODIUM (BEAKER) (test code = 381) 140 meq/L 135-148 LACTIC ACID, ARTERIAL, WHOLE [id number] 01:53:00 Test Item Value Reference Range Interpretation Comments LACTATE BLOOD 9.4 mmol/L 0.5-2.2 H Specimen sligh tly ARTERIAL (2) (BEAKER) hemoly zed (test code = 2874) Effective 01/04/2016: Units/Reference Range ChangeNew: 0.5-2.2 mmol/L Previous: 5-20 mg/dLGLUCOSE-STAT [id number] 01:27:00 Test Item Value Reference Range Interpretation Comments GLUCOSE RANDOM (BEAKER) (test code = 99 mg/dL 70-110 652) BLOOD GAS, [id number] 01:27:00 Test Item Value Reference Range Interpretation [...] 1819) 100.0 % HGB/HCT (H&H) - STAT [id number] 01:27:00 Test Item Value Reference Range Interpretation Comments HEMOGLOBIN (BEAKER) (test code = 12.7 g/dL 13.0-16.8 L 410) HEMATOCRIT (BEAKER) (test code = 37.0 % 40.0-50.0 L 411) SODIUM NA-STAT [id number] 01:26:00 Test Item Value Reference Range Interpretation Comments SODIUM (BEAKER) (test code = 381) 141 meq/L 135-148 POTASSIUM-STAT [id number] 01:26:00 Test Item Value Reference Range Interpretation Comments POTASSIUM (BEAKER) (test code = 3.6 meq/L 3.6-5.5 379) [id number] 00:38:00 Test Item Value Reference Range Interpretation Comments PARTIAL THROMBOPLASTIN TIME 47.4 seconds 22.5-36.0 H (BEAKER) (test code = 760) [id number] 00:35:00 Test Item Value Reference Range Interpretation Comments POTASSIUM (BEAKER) 3.5 meq/L 3.5-5.1 Specimen slightly (test code = 379) hemolyzed CALCIUM, [id number] 00:25:00 Test Item Value Reference Range Interpretation [...] = 1414) RAD, CHEST, 1 VIEW, NON [id number] 22:36:00Reason for exam:->s/p BronchoscopyFINAL REPORT CLINICAL INDICATION: Post bronchoscopy Comparison: Same date ml2396 hours There is improved aeration of the right upper lobe. No pneumothorax is present. Hazy opacity in the right upper lobe and in the retrocardiac lower lungs may reflect atelectasis but pneumonitis should be excluded clinically. The cardiomediastinal contours are stable. Support lines are stable. Signed: Kellen Parra MDReport Verified Date/Time: 01/10/2018 22:36:29 Reading Location: [address] Reading Room C METABOLIC [id number] 22:01:00 Test Item Value Reference Range Interpretation [...] S NOT APPLICABLE FOR DIALYSIS PATIEN TS. [id number] 22:00:00 Test Item Value Reference Range Interpretation Comments MAGNESIUM (BEAKER) 2.4 mg/dL 1.6-2.6 Specimen slightly (test code = 627) hemolyzed [id number] 22:00:00 Test Item Value Reference Range Interpretation Comments PHOSPHORUS (BEAKER) 3.2 mg/dL 2.3-4.7 Specimen slightly (test code = 604) hemolyzed LACTIC ACID, ARTERIAL, WHOLE [id number] 21:57:00 Test Item Value Reference Range Interpretation Comments LACTATE BLOOD 10.2 mmol/L 0.5-2.2 H Specimen sligh tly ARTERIAL (2) (BEAKER) hemoly zed (test code = 2874) Effective 01/04/2016: Units/Reference Range ChangeNew: 0.5-2.2 mmol/L Previous: 5-20 mg/dLCBC W/PLT COUNT & AUTO [id number] 21:51:00 Test Item Value Reference Range Interpretation [...] 0-1 PERCENT (BEAKER) (test code = 2801) [id number] 21:49:00 Test Item Value Reference Range Interpretation Comments PARTIAL THROMBOPLASTIN TIME 41.2 seconds 22.5-36.0 H (BEAKER) (test code = 760) PROTHROMBIN [id number] 21:48:00 Test Item Value Reference Range Interpretation Comments PROTIME (BEAKER) (test code = 19.8 seconds 11.7-14.7 H 759) INR (BEAKER) (test code = 370) 1.7 <=5.9 RECOMMENDED COUMADIN/WARFARIN INR THERAPY RANGESSTANDARD DOSE: 2.0 - 3.0 Includes: PROPHYLAXIS forvenous thrombosis, systemic embolization; TREATMENT for venous thrombosis and/or pulmonary embolus.HIGH RISK: Target INR is 2.5-3.5 for patients with mechanical heart valves.[id number] 21:48:00 Test Item Value Reference Range Interpretation Comments FIBRINOGEN LEVEL (BEAKER) (test 221 mg/dl 225-434 L code = 658) CALCIUM, [id number] 21:33:00 Test Item Value Reference Range Interpretation Comments CALCIUM IONIZED (BEAKER) (test 1.54 mmol/L 1.12-1.27 H code = 698) PH, BLOOD (BEAKER) (test code = 7.33 1810) OXYGEN SATURATION, [id number] 21:33:00 Test Item Value Reference Range Interpretation Comments O2 SATURATION (MEASURED) (BEAKER) 67.1 % (test code = 1455) GLUCOSE-STAT [id number] 21:32:00 Test Item Value Reference Range Interpretation Comments GLUCOSE RANDOM (BEAKER) (test code = 98 mg/dL 70-110 652) SODIUM NA-STAT [id number] 21:32:00 Test Item Value Reference Range Interpretation Comments SODIUM (BEAKER) (test code = 381) 139 meq/L 135-148 POTASSIUM-STAT [id number] 21:32:00 Test Item Value Reference Range Interpretation Comments POTASSIUM (BEAKER) (test code = 3.6 meq/L 3.6-5.5 379) BLOOD GAS, [id number] 21:32:00 Test Item Value Reference Range Interpretation [...] 1819) 60.0 % HGB/HCT (H&H) - STAT [id number] 21:32:00 Test Item Value Reference Range Interpretation Comments HEMOGLOBIN (BEAKER) (test code = 8.2 g/dL 13.0-16.8 L 410) HEMATOCRIT (BEAKER) (test code = 24.0 % 40.0-50.0 L 411) RAD, CHEST, 1 VIEW, NON [id number] 21:32:00Reason for exam:->s/p cardiac surgeryShould this be [...] the level of the clavicles. Right IJ [place] catheter terminatesin the distal right pulmonary artery. The soft tissues and osseous structures are intact. IMPRESSION: Postoperative changes with right upper lobe collapse, likely secondary to mucous plugging. Supporting lines and tubes as described above. Note position of the [place] catheter. Signed: Moiz Musa MDReport Verified Date/Time: 01/10/2018 21:32:31 Reading Location: [facility] [id number] Consult Reading Room THROMBOELASTOGRAPH (TEG)2018-01-10 21:01:00 [...] 55.0-65.0 L (test code = 1413) CALCIUM, [id number] 20:42:00 Test Item Value Reference Range Interpretation Comments CALCIUM IONIZED (BEAKER) (test 1.41 mmol/L 1.12-1.27 H code = 698) PH, BLOOD (BEAKER) (test code = 7.41 1810) SODIUM NA-STAT [id number] 20:41:00 Test Item Value Reference Range Interpretation Comments SODIUM (BEAKER) (test code = 381) 138 meq/L 135-148 POTASSIUM-STAT [id number] 20:41:00 Test Item Value Reference Range Interpretation Comments POTASSIUM (BEAKER) (test code = 3.7 meq/L 3.6-5.5 379) BLOOD GAS, [id number] 20:41:00 Test Item Value Reference Range Interpretation [...] (test code = 1819) 100.0 % GLUCOSE-STAT [id number] 20:41:00 Test Item Value Reference Range Interpretation Comments GLUCOSE RANDOM (BEAKER) (test code 120 mg/dL 70-110 H = 652) HGB/HCT (H&H) - STAT [id number] 20:41:00 Test Item Value Reference Range Interpretation Comments HEMOGLOBIN (BEAKER) (test code = 7.8 g/dL 13.0-16.8 L 410) HEMATOCRIT (BEAKER) (test code = 23.0 % 40.0-50.0 L 411) [id number] 20:23:00 Test Item Value Reference Range Interpretation Comments FIBRINOGEN LEVEL (BEAKER) (test 239 mg/dl 225-434 code = 658) [id number] 20:23:00 Test Item Value Reference Range Interpretation Comments PARTIAL THROMBOPLASTIN TIME 38.6 seconds 22.5-36.0 H (BEAKER) (test code = 760) PROTHROMBIN [id number] 20:22:00 Test Item Value Reference Range Interpretation Comments PROTIME (BEAKER) (test code = 21.6 seconds 11.7-14.7 H 759) INR (BEAKER) (test code = 370) 1.9 <=5.9 RECOMMENDED COUMADIN/WARFARIN INR THERAPY RANGESSTANDARD DOSE: 2.0 - 3.0 Includes: PROPHYLAXIS forvenous thrombosis, systemic embolization; TREATMENT for venous thrombosis and/or pulmonary embolus.HIGH RISK: Target INR is 2.5-3.5 for patients with mechanical heart valves.[id number] 20:16:00 Test Item Value Reference Range Interpretation Comments ACTIVATED CLOTTING TIME 114 sec TEST ED AT [place] [address] ([facility]) (test code = [place] [address]) [id number] 20:16:00 Test Item Value Reference Range Interpretation Comments ACTIVATED CLOTTING TIME 499 sec TEST ED AT [place] [address] ([facility]) (test code = [place] [address]) [address] [id number] 20:16:00 Test Item Value Reference Range Interpretation Comments ACTIVATED CLOTTING TIME 483 sec TEST ED AT [place] [address] ([facility]) (test code = [place] [address]) [address] [id number] 20:16:00 Test Item Value Reference Range Interpretation Comments ACTIVATED CLOTTING TIME 538 sec TEST ED AT [place] [address] ([facility]) (test code = [place] [address]) [address] [id number] 20:16:00 Test Item Value Reference Range Interpretation Comments ACTIVATED CLOTTING TIME 615 sec TEST ED AT [place] [address] ([facility]) (test code = [place] [address]) [address] [id number] 20:16:00 Test Item Value Reference Range Interpretation Comments ACTIVATED CLOTTING TIME 692 sec TEST ED AT [place] [address] ([facility]) (test code = [place] [address]) [address] [id number] 20:16:00 Test Item Value Reference Range Interpretation Comments ACTIVATED CLOTTING TIME 428 sec TEST ED AT [place] [address] ([facility]) (test code = [place] [address]) [address] [id number] 20:16:00 Test Item Value Reference Range Interpretation Comments ACTIVATED CLOTTING TIME 373 sec TEST ED AT [place] [address] ([facility]) (test code = [place] [address]) [address] [id number] 20:16:00 Test Item Value Reference Range Interpretation Comments ACTIVATED CLOTTING TIME 455 sec TEST ED AT [place] [address] ([facility]) (test code = [place] [address]) [address] [id number] 20:16:00 Test Item Value Reference Range Interpretation Comments ACTIVATED CLOTTING TIME 494 sec TEST ED AT [place] [address] (BEAKER) (test code = [place] [facility] 441) [address] [id number] 20:16:00 Test Item Value Reference Range Interpretation Comments ACTIVATED CLOTTING TIME 527 sec TEST ED AT [place] [address] ([facility]) (test code = [place] [address]) [address] [id number] 20:16:00 Test Item Value Reference Range Interpretation Comments ACTIVATED CLOTTING TIME 610 sec TEST ED AT [place] [address] ([facility]) (test code = [place] [address]) [address] [id number] 20:16:00 Test Item Value Reference Range Interpretation Comments ACTIVATED CLOTTING TIME 576 sec TEST ED AT [place] [address] ([facility]) (test code = [place] [address]) [address] [id number] 20:16:00 Test Item Value Reference Range Interpretation Comments ACTIVATED CLOTTING TIME 384 sec TEST ED AT [place] [address] ([facility]) (test code = [place] [address]) [address] PLATELET [id number] 20:08:00 Test Item Value Reference Range Interpretation [...] 0.0-5.0 (BEAKER) (test code = 1414) CALCIUM, [id number] 19:59:00 Test Item Value Reference Range Interpretation Comments CALCIUM IONIZED (BEAKER) (test 1.39 mmol/L 1.12-1.27 H code = 698) PH, BLOOD (BEAKER) (test code = 7.37 1810) BLOOD GAS, [id number] 19:58:00 Test Item Value Reference Range Interpretation [...] (test code = 1819) 100.0 % GLUCOSE-STAT [id number] 19:58:00 Test Item Value Reference Range Interpretation Comments GLUCOSE RANDOM (BEAKER) (test code 143 mg/dL 70-110 H = 652) HGB/HCT (H&H) - STAT [id number] 19:58:00 Test Item Value Reference Range Interpretation Comments HEMOGLOBIN (BEAKER) (test code = 8.7 g/dL 13.0-16.8 L 410) HEMATOCRIT (BEAKER) (test code = 26.0 % 40.0-50.0 L 411) SODIUM NA-STAT [id number] 19:57:00 Test Item Value Reference Range Interpretation Comments SODIUM (BEAKER) (test code = 381) 140 meq/L 135-148 POTASSIUM-STAT [id number] 19:57:00 Test Item Value Reference Range Interpretation Comments POTASSIUM (BEAKER) (test code = 3.9 meq/L 3.6-5.5 379) [id number] 19:29:00 Test Item Value Reference Range Interpretation Comments PARTIAL THROMBOPLASTIN TIME > seconds 22.5-36.0 HH (BEAKER) (test code = 760) [id number] 19:16:00 Test Item Value Reference Range Interpretation Comments FIBRINOGEN LEVEL (BEAKER) (test 271 mg/dl 225-434 code = 658) PROTHROMBIN [id number] 19:15:00 Test Item Value Reference Range Interpretation Comments PROTIME (BEAKER) (test code = 21.3 seconds 11.7-14.7 H 759) INR (BEAKER) (test code = 370) 1.8 <=5.9 RECOMMENDED COUMADIN/WARFARIN INR THERAPY RANGESSTANDARD DOSE: 2.0 - 3.0 Includes: PROPHYLAXIS forvenous thrombosis, systemic embolization; TREATMENT for venous thrombosis and/or pulmonary embolus.HIGH RISK: Target INR is 2.5-3.5 for patients with mechanical heart valves.PLATELET [id number] 19:06:00 Test Item Value Reference Range Interpretation Comments PLATELET COUNT (BEAKER) (test code 54 K/CU MM 150-450 L = 756) BLOOD GAS, [id number] 18:49:00 Test Item Value Reference Range Interpretation [...] 1819) 100.0 % HGB/HCT (H&H) - STAT [id number] 18:44:00 Test Item Value Reference Range Interpretation Comments HEMOGLOBIN (BEAKER) (test code = 10.1 g/dL 13.0-16.8 L 410) HEMATOCRIT (BEAKER) (test code = 30.0 % 40.0-50.0 L 411) SODIUM NA-STAT [id number] 18:43:00 Test Item Value Reference Range Interpretation Comments SODIUM (BEAKER) (test code = 381) 137 meq/L 135-148 POTASSIUM-STAT [id number] 18:43:00 Test Item Value Reference Range Interpretation Comments POTASSIUM (BEAKER) (test code = 5.0 meq/L 3.6-5.5 379) GLUCOSE-STAT [id number] 18:43:00 Test Item Value Reference Range Interpretation Comments GLUCOSE RANDOM (BEAKER) (test code 187 mg/dL 70-110 H = 652) SODIUM NA-STAT [id number] 18:22:00 Test Item Value Reference Range Interpretation Comments SODIUM (BEAKER) (test code = 381) 140 meq/L 135-148 POTASSIUM-STAT [id number] 18:22:00 Test Item Value Reference Range Interpretation Comments POTASSIUM (BEAKER) (test code = 4.7 meq/L 3.6-5.5 379) BLOOD GAS, [id number] 18:22:00 Test Item Value Reference Range Interpretation [...] (test code = 1819) 60.0 % GLUCOSE-STAT [id number] 18:22:00 Test Item Value Reference Range Interpretation Comments GLUCOSE RANDOM (BEAKER) (test code 209 mg/dL 70-110 H = 652) HGB/HCT (H&H) - STAT [id number] 18:22:00 Test Item Value Reference Range Interpretation Comments HEMOGLOBIN (BEAKER) (test code = 10.2 g/dL 13.0-16.8 L 410) HEMATOCRIT (BEAKER) (test code = 30.0 % 40.0-50.0 L 411) BLOOD GAS, [id number] 17:57:00 Test Item Value Reference Range Interpretation [...] (test code = 1819) 65.0 % GLUCOSE-STAT [id number] 17:57:00 Test Item Value Reference Range Interpretation Comments GLUCOSE RANDOM (BEAKER) (test code 198 mg/dL 70-110 H = 652) HGB/HCT (H&H) - STAT [id number] 17:57:00 Test Item Value Reference Range Interpretation Comments HEMOGLOBIN (BEAKER) (test code = 10.3 g/dL 13.0-16.8 L 410) HEMATOCRIT (BEAKER) (test code = 30.0 % 40.0-50.0 L 411) SODIUM NA-STAT [id number] 17:56:00 Test Item Value Reference Range Interpretation Comments SODIUM (BEAKER) (test code = 381) 138 meq/L 135-148 POTASSIUM-STAT [id number] 17:56:00 Test Item Value Reference Range Interpretation Comments POTASSIUM (BEAKER) (test code = 4.7 meq/L 3.6-5.5 379) BLOOD GAS, [id number] 17:28:00 Test Item Value Reference Range Interpretation [...] (test code = 1819) 65.0 % GLUCOSE-STAT [id number] 17:28:00 Test Item Value Reference Range Interpretation Comments GLUCOSE RANDOM (BEAKER) (test code 223 mg/dL 70-110 H = 652) HGB/HCT (H&H) - STAT [id number] 17:28:00 Test Item Value Reference Range Interpretation Comments HEMOGLOBIN (BEAKER) (test code = 10.1 g/dL 13.0-16.8 L 410) HEMATOCRIT (BEAKER) (test code = 30.0 % 40.0-50.0 L 411) SODIUM NA-STAT [id number] 17:27:00 Test Item Value Reference Range Interpretation Comments SODIUM (BEAKER) (test code = 381) 140 meq/L 135-148 POTASSIUM-STAT [id number] 17:27:00 Test Item Value Reference Range Interpretation [...] code = 1414) HGB/HCT (H&H) - STAT [id number] 17:01:00 Test Item Value Reference Range Interpretation Comments HEMOGLOBIN (BEAKER) (test code = 10.1 g/dL 13.0-16.8 L 410) HEMATOCRIT (BEAKER) (test code = 30.0 % 40.0-50.0 L 411) BLOOD GAS, [id number] 17:00:00 Test Item Value Reference Range Interpretation [...] (test code = 1819) 65.0 % GLUCOSE-STAT [id number] 17:00:00 Test Item Value Reference Range Interpretation Comments GLUCOSE RANDOM (BEAKER) (test code 243 mg/dL 70-110 H = 652) SODIUM NA-STAT [id number] 16:59:00 Test Item Value Reference Range Interpretation Comments SODIUM (BEAKER) (test code = 381) 139 meq/L 135-148 POTASSIUM-STAT [id number] 16:59:00 Test Item Value Reference Range Interpretation Comments POTASSIUM (BEAKER) (test code = 4.6 meq/L 3.6-5.5 379) [id number] 16:47:00 Test Item Value Reference Range Interpretation Comments PARTIAL THROMBOPLASTIN TIME > seconds 22.5-36.0 HH (BEAKER) (test code = 760) BLOOD GAS, [id number] 16:18:00 Test Item Value Reference Range Interpretation [...] (test code = 1819) 65.0 % GLUCOSE-STAT [id number] 16:18:00 Test Item Value Reference Range Interpretation Comments GLUCOSE RANDOM (BEAKER) (test code 279 mg/dL 70-110 H = 652) HGB/HCT (H&H) - STAT [id number] 16:18:00 Test Item Value Reference Range Interpretation Comments HEMOGLOBIN (BEAKER) (test code = 7.0 g/dL 13.0-16.8 L 410) HEMATOCRIT (BEAKER) (test code = 21.0 % 40.0-50.0 L 411) SODIUM NA-STAT [id number] 16:17:00 Test Item Value Reference Range Interpretation Comments SODIUM (BEAKER) (test code = 381) 137 meq/L 135-148 POTASSIUM-STAT [id number] 16:17:00 Test Item Value Reference Range Interpretation Comments POTASSIUM (BEAKER) (test code = 4.6 meq/L 3.6-5.5 379) [id number] 16:15:00 Test Item Value Reference Range Interpretation Comments FIBRINOGEN LEVEL (BEAKER) (test 255 mg/dl 225-434 code = 658) PROTHROMBIN [id number] 16:14:00 Test Item Value Reference Range Interpretation Comments PROTIME (BEAKER) (test code = 20.2 seconds 11.7-14.7 H 759) INR (BEAKER) (test code = 370) 1.7 <=5.9 RECOMMENDED COUMADIN/WARFARIN INR THERAPY RANGESSTANDARD DOSE: 2.0 - 3.0 Includes: PROPHYLAXIS forvenous thrombosis, systemic embolization; TREATMENT for venous thrombosis and/or pulmonary embolus.HIGH RISK: Target INR is 2.5-3.5 for patients with mechanical heart valves.PLATELET [id number] 16:02:00 Test Item Value Reference Range Interpretation Comments PLATELET COUNT (BEAKER) (test code 57 K/CU MM 150-450 L = 756) CALCIUM, [id number] 15:51:00 Test Item Value Reference Range Interpretation Comments CALCIUM IONIZED (BEAKER) (test 0.82 mmol/L 1.12-1.27 L code = 698) PH, BLOOD (BEAKER) (test code = 7.45 1810) BLOOD GAS, [id number] 15:51:00 Test Item Value Reference Range Interpretation [...] (test code = 1819) 100.0 % GLUCOSE-STAT [id number] 15:51:00 Test Item Value Reference Range Interpretation Comments GLUCOSE RANDOM (BEAKER) (test code 190 mg/dL 70-110 H = 652) HGB/HCT (H&H) - STAT [id number] 15:51:00 Test Item Value Reference Range Interpretation Comments HEMOGLOBIN (BEAKER) (test code = 7.6 g/dL 13.0-16.8 L 410) HEMATOCRIT (BEAKER) (test code = 22.0 % 40.0-50.0 L 411) POTASSIUM-STAT [id number] 15:51:00 Test Item Value Reference Range Interpretation Comments POTASSIUM (BEAKER) (test code = 5.6 meq/L 3.6-5.5 H 379) SODIUM NA-STAT [id number] 15:50:00 Test Item Value Reference Range Interpretation Comments SODIUM (BEAKER) (test code = 381) 139 meq/L 135-148 BLOOD GAS, [id number] 15:43:00 Test Item Value Reference Range Interpretation [...] (test code = 1819) 75.0 % GLUCOSE-STAT [id number] 15:43:00 Test Item Value Reference Range Interpretation Comments GLUCOSE RANDOM (BEAKER) (test code 189 mg/dL 70-110 H = 652) HGB/HCT (H&H) - STAT [id number] 15:43:00 Test Item Value Reference Range Interpretation Comments HEMOGLOBIN (BEAKER) (test code = 8.0 g/dL 13.0-16.8 L 410) HEMATOCRIT (BEAKER) (test code = 24.0 % 40.0-50.0 L 411) POTASSIUM-STAT [id number] 15:43:00 Test Item Value Reference Range Interpretation Comments POTASSIUM (BEAKER) (test code = 5.7 meq/L 3.6-5.5 H 379) SODIUM NA-STAT [id number] 15:42:00 Test Item Value Reference Range Interpretation Comments SODIUM (BEAKER) (test code = 381) 136 meq/L 135-148 SODIUM NA-STAT [id number] 15:06:00 Test Item Value Reference Range Interpretation Comments SODIUM (BEAKER) (test code = 381) 139 meq/L 135-148 BLOOD GAS, [id number] 15:06:00 Test Item Value Reference Range Interpretation [...] (test code = 1819) 60.0 % POTASSIUM-STAT [id number] 15:06:00 Test Item Value Reference Range Interpretation Comments POTASSIUM (BEAKER) (test code = 5.8 meq/L 3.6-5.5 H 379) GLUCOSE-STAT [id number] 15:06:00 Test Item Value Reference Range Interpretation Comments GLUCOSE RANDOM (BEAKER) (test code 192 mg/dL 70-110 H = 652) HGB/HCT (H&H) - STAT [id number] 15:06:00 Test Item Value Reference Range Interpretation Comments HEMOGLOBIN (BEAKER) (test code = 8.2 g/dL 13.0-16.8 L 410) HEMATOCRIT (BEAKER) (test code = 24.0 % 40.0-50.0 L 411) POTASSIUM-STAT [id number] 14:41:00 Test Item Value Reference Range Interpretation Comments POTASSIUM (BEAKER) (test code = 5.2 meq/L 3.6-5.5 379) BLOOD GAS, [id number] 14:41:00 Test Item Value Reference Range Interpretation [...] code = 1819) 60.0 % SODIUM NA-STAT [id number] 14:41:00 Test Item Value Reference Range Interpretation Comments SODIUM (BEAKER) (test code = 381) 134 meq/L 135-148 L GLUCOSE-STAT [id number] 14:41:00 Test Item Value Reference Range Interpretation Comments GLUCOSE RANDOM (BEAKER) (test code 195 mg/dL 70-110 H = 652) HGB/HCT (H&H) - STAT [id number] 14:41:00 Test Item Value Reference Range Interpretation Comments HEMOGLOBIN (BEAKER) (test code = 8.2 g/dL 13.0-16.8 L 410) HEMATOCRIT (BEAKER) (test code = 24.0 % 40.0-50.0 L 411) BLOOD GAS, [id number] 14:10:00 Test Item Value Reference Range Interpretation [...] (test code = 1819) 60.0 % GLUCOSE-STAT [id number] 14:10:00 Test Item Value Reference Range Interpretation Comments GLUCOSE RANDOM (BEAKER) (test code 177 mg/dL 70-110 H = 652) HGB/HCT (H&H) - STAT [id number] 14:10:00 Test Item Value Reference Range Interpretation Comments HEMOGLOBIN (BEAKER) (test code = 8.5 g/dL 13.0-16.8 L 410) HEMATOCRIT (BEAKER) (test code = 25.0 % 40.0-50.0 L 411) SODIUM NA-STAT [id number] 14:09:00 Test Item Value Reference Range Interpretation Comments SODIUM (BEAKER) (test code = 381) 136 meq/L 135-148 POTASSIUM-STAT [id number] 14:09:00 Test Item Value Reference Range Interpretation Comments POTASSIUM (BEAKER) (test code = 5.0 meq/L 3.6-5.5 379) SODIUM NA-STAT [id number] 13:39:00 Test Item Value Reference Range Interpretation Comments SODIUM (BEAKER) (test code = 381) 136 meq/L 135-148 POTASSIUM-STAT [id number] 13:39:00 Test Item Value Reference Range Interpretation Comments POTASSIUM (BEAKER) (test code = 5.0 meq/L 3.6-5.5 379) BLOOD GAS, [id number] 13:39:00 Test Item Value Reference Range Interpretation [...] (test code = 1819) 60.0 % GLUCOSE-STAT [id number] 13:39:00 Test Item Value Reference Range Interpretation Comments GLUCOSE RANDOM (BEAKER) (test code 179 mg/dL 70-110 H = 652) HGB/HCT (H&H) - STAT [id number] 13:39:00 Test Item Value Reference Range Interpretation Comments HEMOGLOBIN (BEAKER) (test code = 8.1 g/dL 13.0-16.8 L 410) HEMATOCRIT (BEAKER) (test code = 24.0 % 40.0-50.0 L 411) CALCIUM, [id number] 12:31:00 Test Item Value Reference Range Interpretation Comments CALCIUM IONIZED (BEAKER) (test 1.09 mmol/L 1.12-1.27 L code = 698) PH, BLOOD (BEAKER) (test code = 7.45 1810) GLUCOSE-STAT [id number] 12:30:00 Test Item Value Reference Range Interpretation Comments GLUCOSE RANDOM (BEAKER) (test code = 93 mg/dL 70-110 652) SODIUM NA-STAT [id number] 12:30:00 Test Item Value Reference Range Interpretation Comments SODIUM (BEAKER) (test code = 381) 140 meq/L 135-148 POTASSIUM-STAT [id number] 12:30:00 Test Item Value Reference Range Interpretation Comments POTASSIUM (BEAKER) (test code = 3.9 meq/L 3.6-5.5 379) BLOOD GAS, [id number] 12:30:00 Test Item Value Reference Range Interpretation [...] 1819) 100.0 % HGB/HCT (H&H) - STAT [id number] 12:30:00 Test Item Value Reference Range Interpretation Comments HEMOGLOBIN (BEAKER) (test code = 9.3 g/dL 13.0-16.8 L 410) HEMATOCRIT (BEAKER) (test code = 27.0 % 40.0-50.0 L 411) HEMOGLOBIN [id number] 10:02:00 Test Item Value Reference Range Interpretation Comments HEMOGLOBIN A1C (BEAKER) (test code = 4.4 % 4.3-6.1 368) POCT-GLUCOSE [id number] 09:52:00 Test Item Value Reference Range Interpretation Comments POC-GLUCOSE METER 115 mg/dL 70-[address] [facility] 6720 (BEAKER) (test code = [place] 1538) [address] PROTHROMBIN [id number] 02:41:00 Test Item Value Reference Range Interpretation Comments PROTIME (BEAKER) (test code = 14.9 seconds 11.7-14.7 H 759) INR (BEAKER) (test code = 370) 1.2 <=5.9 RECOMMENDED COUMADIN/WARFARIN INR THERAPY RANGESSTANDARD DOSE: 2.0 - 3.0 Includes: PROPHYLAXIS forvenous thrombosis, systemic embolization; TREATMENT for venous thrombosis and/or pulmonary embolus.HIGH RISK: Target INR is 2.5-3.5 for patients with mechanical heart valves.BASIC METABOLIC [id number] 00:29:00 Test Item Value Reference Range Interpretation [...] S NOT APPLICABLE FOR DIALYSIS PATIEN TS. [id number] 00:22:00 Test Item Value Reference Range Interpretation Comments MAGNESIUM (BEAKER) 2.5 mg/dL 1.6-2.6 Specimen slightly (test code = 627) hemolyzed [id number] 00:14:00 Test Item Value Reference Range Interpretation Comments PARTIAL THROMBOPLASTIN TIME 38.6 seconds 22.5-36.0 H (BEAKER) (test code = 760) CBC W/PLT COUNT & AUTO [id number] 00:07:00 Test Item Value Reference Range Interpretation [...] 0-1 PERCENT (BEAKER) (test code = 2801) [id number] 17:03:00 Test Item Value Reference Range Interpretation Comments THYROID STIMULATING HORMONE 1.30 uIU/mL 0.35-4.94 (BEAKER) (test code = 772) HEPATIC FUNCTION [id number] 16:43:00 Test Item Value Reference Range Interpretation [...] 69 U/L 6-55 H 347) BASIC METABOLIC [id number] 15:47:00 Test Item Value Reference Range Interpretation [...] S NOT APPLICABLE FOR DIALYSIS PATIEN TED. [id number] 14:57:00 Test Item Value Reference Range Interpretation Comments PARTIAL THROMBOPLASTIN TIME 82.9 seconds 22.5-36.0 H (BEAKER) (test code = 760) CBC W/PLT COUNT & AUTO [id number] 14:48:00 Test Item Value Reference Range Interpretation [...] IMMATURE GRANULOCYTES-RELATIVE 1 % 0-1 PERCENT ([facility]) (test code = 2801) POCT-GLUCOSE [id number] 11:13:00 Test Item Value Reference Range Interpretation Comments POC-GLUCOSE METER 207 mg/dL 70-[address] [facility] 67 ([facility]) (test code = [facility] 1538) [id number] POCT-GLUCOSE [id number] 08:08:00 Test Item Value Reference Range Interpretation Comments POC-GLUCOSE METER 124 mg/dL 70-110 H TESTED AT [place] [address] ([facility]) (test code = [facility] 1538) [address] [id number] 06:51:00 Test Item Value Reference Range Interpretation Comments PARTIAL THROMBOPLASTIN TIME 54.6 seconds 22.5-36.0 H ([facility]) (test code = 760) HEPATITIS B SURFACE [id number] 00:28:00 Test Item Value Reference Range Interpretation Comments HEPATITIS B SURFACE ANTIGEN (2) Nonreactive Nonreactive ([facility]) (test code = 2585) [id number] 00:06:00 Test Item Value Reference Range Interpretation Comments PHOSPHORUS (BEAKER) (test code = 3.2 mg/dL 2.3-4.7 604) [id number] 00:03:00 Test Item Value Reference Range Interpretation Comments PARTIAL THROMBOPLASTIN TIME 36.0 seconds 22.5-36.0 (BEAKER) (test code = 760) CBC W/PLT COUNT & AUTO [id number] 23:45:00 Test Item Value Reference Range Interpretation [...] PERCENT (BEAKER) (test code = 2801) POCT-GLUCOSE [id number] 17:39:00 Test Item Value Reference Range Interpretation Comments POC-GLUCOSE METER 116 mg/dL 70-[address] [facility] 67[address] (BEAKER) (test code = FOSTER [place] 1538) [address] [id number] 15:35:00 Test Item Value Reference Range Interpretation Comments THYROID STIMULATING HORMONE 1.39 uIU/mL 0.35-4.94 (JARROD) (test code = 772) [id number] 15:06:00 Test Item Value Reference Range Interpretation Comments PARTIAL THROMBOPLASTIN TIME 31.0 seconds 22.5-36.0 (JARROD) (test code = 760) Prior to initiating heparinPROTHROMBIN TIME/[id number] 15:05:00 Test Item Value Reference Range Interpretation Comments PROTIME (JARROD) (test code = 14.4 seconds 11.7-14.7 759) INR (JARROD) (test code = 370) 1.1 <=5.9 RECOMMENDED COUMADIN/WARFARIN INR THERAPY RANGESSTANDARD DOSE: 2.0 - 3.0 Includes: PROPHYLAXIS forvenous thrombosis, systemic embolization; TREATMENT for venous thrombosis and/or pulmonary embolus.HIGH RISK: Target INR is 2.5-3.5 for patients with mechanical heart valves.PLATELET [id number] 14:52:00 Test Item Value Reference Range Interpretation Comments PLATELET COUNT (JARROD) (test 109 K/CU MM 150-450 L code = 756) POCT-GLUCOSE [id number] 12:00:00 Test Item Value Reference Range Interpretation Comments POC-GLUCOSE METER 186 mg/dL 70-[address] [facility] 6720 (JARROD) (test code = [place] 1538) [address] RAD, CHEST, 1 VIEW, NON [id number] 11:43:00Reason for exam:->SOB, known severe MRShould this be performed at the bedside?->YesFINAL REPORT Chest one view AP 01/08/2018 11:42 AM CLINICAL INDICATION: SOB, kno wn severe MR COMPARISON: 12/02/2017 IMPRESSION: Cardiomediastinal contours are stable. There is mild pulmonary edema. There are trace bilateral pleural effusions. Signed: Yevgeniy Anderson Verified Date/Time: 01/08/2018 11:43:52 Reading Location: [facility] Radiology Reading Room Electronic ally signed by: YEVGENIY ANDERSON M.D. on 01/08/2018 11:43 AMRAPID CK-HUDSON 2017-12-02 10:04:00 Test Item Value Reference Range Interpretation Comments RAPID CKMB (BEAKER) (test code = 1.5 ng/mL 0.0-4.3 1482) RAPID TROPONIN [id number] 10:04:00 Test Item Value Reference Range Interpretation Comments RAPID TROPONIN I (BEAKER) (test code < ng/mL <0.05 = 1483) RAD, CHEST, 2 [id number] 10:00:00Reason for exam:->Chest PainFINAL REPORT Chest two views Discussion: Heart size upper limits of normal. Bilateral interstitial edema with small bilateral effusions. No pneumothorax. Bones and soft tissues unremarkable. Signed: Rhea Colindreseport Verified Date/Time: 12/02/2017 10:00:39 Reading Location:[facility] Radiology Reading Room B-TYPE NATRIURETIC FACTOR (BNP)2017-12-02 09:56:00 Test Item Value Reference Range Interpretation Comments B-TYPE NATRIURETIC PEPTIDE 1990 pg/mL 0-100 H (BEAKER) (test code = 700) BASIC METABOLIC [id number] 09:52:00 Test Item Value Reference Range Interpretation [...] S NOT APPLICABLE FOR DIALYSIS PATIEN TS. [id number] 09:51:00 Test Item Value Reference Range Interpretation Comments MAGNESIUM (BEAKER) (test code = 1.7 mg/dL 1.5-3.0 627) CBC W/PLT COUNT & AUTO [id number] 09:50:00 Test Item Value Reference Range Interpretation [...] (BEAKER) (test code = 417) CD4/CD8 Ratio [id number] 08:04:00 Test Item Value Reference Range Interpretation Comments Absolute CD 4 [place] (test code 188 /uL 359-1519 L = 121301) % CD 4 Pos. Lymph. (test code = 37.6 % 30.8-58.5 N 259346) Abs. CD 8 Suppressor (test code 183 /uL 109-897 N = 616268) % CD 8 Pos. Lymph. (test code = 36.6 % 12.0-35.5 H 677732) CD4/CD8 Ratio (test code = 1.03 0.92-3.72 N 862090) WBC (test code = 088420) 5.0 x10E3/uL 3.4-10.8 N RBC (test code = 044185) 3.00 x10E6/uL 4.14-5.80 L Hemoglobin (test code = 131291) 9.6 g/dL 13.0-17.7 L Hematocrit (test code = 065444) 27.6 % 37.5-51.0 L MCV (test code = 675418) 92 fL 79-97 N MCH (test code = 255800) 32.0 pg 26.6-33.0 N MCHC (test code = 869287) 34.8 g/dL 31.5-35.7 N RDW (test code = 292938) 15.5 % 12.3-15.4 H Platelets (test code = 353916) 113 x10E3/uL 150-379 L Neutrophils (test code = 84 % Not Estab. N 432791) Lymphs (test code = 911406) 9 % Not Estab. N Monocytes (test code = 074575) 6 % Not Estab. N Eos (test code = 008435) 1 % Not Estab. N Basos (test code = 646004) 0 % Not Estab. N Neutrophils (Absolute) (test 4.2 x10E3/uL 1.4-7.0 N code = 032742) Lymphs (Absolute) (test code = 0.5 x10E3/uL 0.7-3.1 L 097683) Monocytes(Absolute) (test code 0.3 x10E3/uL 0.1-0.9 N = 793610) Eos (Absolute) (test code = 0.0 x10E3/uL 0.0-0.4 N 677121) Baso (Absolute) (test code = 0.0 x10E3/uL 0.0-0.2 N 921235) Immature Granulocytes (test 0 % Not Estab. N code = 402484) Immature Grans (Abs) (test code 0.0 x10E3/uL 0.0-0.1 N = 080157) Culture, Blood [id number] 08:42:00Specimen: BloodCollected: 11/19/2017 00:21 Status: Final Last Updated: 11/24/2017 08:42 Culture Result (Final) (Final) No Growth After 5 DaysCulture, Blood [id number] 08:42:00 Specimen: BloodCollected: 11/18/2017 20:30 Status: Final Last Updated: 11/24/2017 08:42 Culture Result (Final) (Final) No Growth After 5 DaysPOC Glucose, [id number] 11:51:00 Test Item Value Reference Range Interpretation Comments POC Glucose (test 148 mg/dL 70-115 H Notify RN or MDIf you code = POCGLUC) consider you r patient critically ill, the Madeline Accu-Chek InformII metershould not be used for Glucose determinations. Draw a venous Glucose and send to the Main Lab for Analysis. CK [id number] 07:42:00 Test Item Value Reference Range Interpretation Comments CK (test code = CK) na U/L 39-308 N CKMB (test code = CKMB) 4.0 ng/mL 0.0-4.9 N CKMB% (test code = CKMBP) 0.0 % 0.0-3.4 N [id number]-[id number] 07:39:00 Test Item Value Reference Range Interpretation Comments NT ProBnp (test code = PBNP) >59207 pg/mL 0-124 H Troponin [id number] 07:18:00 Test Item Value Reference Range Interpretation Comments Troponin T (test code = MADHAV) 0.103 ng/mL 0.000-0.090 H Lactate [id number] 07:18:00 Test Item Value Reference Range Interpretation Comments LDH (test code = LDH) 271 U/L 135-225 H POC Glucose, [id number] 06:50:00 Test Item Value Reference Range Interpretation Comments POC Glucose (test 154 mg/dL 70-115 H Notify RN or MDIf you code = POCGLUC) consider you r patient critically ill, the [facility] Accu-Chek InformII metershould not be used for Glucose determinations. Draw a venous Glucose and send to the Main Lab for Analysis. CK [id number] 01:08:00 Test Item Value Reference Range Interpretation Comments CK (test code = CK) na U/L 39-308 N CKMB (test code = CKMB) 3.6 ng/mL 0.0-4.9 N CKMB% (test code = CKMBP) 0.0 % 0.0-3.4 N Troponin [id number] 01:08:00 Test Item Value Reference Range Interpretation Comments Troponin T (test code = MADHAV) 0.106 ng/mL 0.000-0.090 H XR CHEST 1 [id number] 21:02:01CLINICAL INFORMATION: Vascular congestion.Dictation Location: R 16Comparison: 11/18/2017 showed perihilar and lower lobe opacities. Technique: Portable AP 195 hoursFINDINGS: Monitoring electrodes overlie the chest wall. Cardiomegaly withincreasing central vascular interstitial prominence with bibasilaropacities and effusions. No interval bone changes.IMPRESSION: Changes could indicate worsening cardiac decompensation orfluid overload.POC Glucose, [id number] 20:15:00 Test Item Value Reference Range Interpretation Comments POC Glucose (test 139 mg/dL 70-115 H If you con stoker erector your code = POCGLUC) patient crit ically ill, the [facility] Accu- Chek InformII meters hould not be used for Glu cose determinations. Draw a venous Glucose and send to the Main Lab for Analysis. POC Glucose, [id number] 16:52:00 Test Item Value Reference Range Interpretation Comments POC Glucose (test 123 mg/dL 70-115 H If you con stoker erector your code = POCGLUC) patient crit ically ill, the [facility]eline Accu- Chek InformII meters hould not be used for Glu cose determinations. Draw a venous Glucose and send to the Main Lab for Analysis. POC Glucose, [id number] 12:04:00 Test Item Value Reference Range Interpretation Comments POC Glucose (test 140 mg/dL 70-115 H If you con stoker erector your code = POCGLUC) patient crit ically ill, the [facility] Accu- Chek InformII meters hould not be used for Glu cose determinations. Draw a venous Glucose and send to the Main Lab for Analysis. POC Glucose, [id number] 08:01:00 Test Item Value Reference Range Interpretation Comments POC Glucose (test 126 mg/dL 70-115 H If you con stoker erector your code = POCGLUC) patient crit ically ill, the Madelien Accu- Chek InformII meters hould not be used for Glu cose determinations. Draw a venous Glucose and send to the Main Lab for Analysis. CK [id number] 06:03:00 Test Item Value Reference Range Interpretation Comments CK (test code = CK) na U/L 39-308 N CKMB (test code = CKMB) 2.8 ng/mL 0.0-4.9 N CKMB% (test code = CKMBP) 0.0 % 0.0-3.4 N Basic Metabolic [id number] 05:51:00 Test Item Value Reference Range Interpretation [...] the National Kidney Foundation,http ://nkd ep.nih.gov Magnesium, [id number] 05:51:00 Test Item Value Reference Range Interpretation Comments Magnesium (test code = MG) 1.9 mg/dL 1.7-2.5 N [id number] 05:51:00 Test Item Value Reference Range Interpretation Comments Phosphorus (test code = PO4) 3.8 mg/dL 2.70-4.50 N [id number]-[id number] 05:51:00 Test Item Value Reference Range Interpretation Comments NT ProBnp (test code = PBNP) >39504 pg/mL 0-124 H Troponin [id number] 05:51:00 Test Item Value Reference Range Interpretation Comments Troponin T (test code = MADHAV) 0.126 ng/mL 0.000-0.090 H CBC with [id number] 05:34:00 Test Item Value Reference Range Interpretation [...] code = ALYMPH) 0.4 K/cumm 0.5-4.6 L Foster Abs (test code = AMONO) 0.6 K/cumm 0.0-1.2 N Eos Abs (test code = AEOS) 0.13 K/cumm 0.00-0.74 N Baso Abs (test code = ABASO) 0.0 K/cumm 0.00-0.21 N CK [id number] 18:39:00 Test Item Value Reference Range Interpretation Comments CK (test code = CK) HIDE U/L 39-308 N CKMB (test code = CKMB) 3.2 ng/mL 0.0-4.9 N CKMB% (test code = CKMBP) HIDE % 0.0-3.4 N Troponin [id number] 18:39:00 Test Item Value Reference Range Interpretation Comments Troponin T (test code = MADHAV) 0.126 ng/mL 0.000-0.090 H Hep B Surface [id number] 18:39:00 Test Item Value Reference Range Interpretation Comments Hep Bs Ag (test code = HBSAG) Nonreactive Non-Reactive A POC Glucose, [id number] 16:47:00 Test Item Value Reference Range Interpretation Comments POC Glucose (test 143 mg/dL 70-115 H If you con stoker erector your code = POCGLUC) patient crit ically ill, the [facility] Accu- Chek InformII meters hould not be used for Glu cose determinations. Draw a venous Glucose and send to the Main Lab for Analysis. XR CHEST 1 [id number] 08:18:18EXAM: Portable AP chest x-rayLOCATION: R16 INDICATION: CoughCOMPARISON: 11/07/2017FINDINGS:The cardiacsilhouette is stable enlargement. There are increasinginterstitial opacities, most evident in the per ihilar regions and lowerlobes. There is blunting of the costophrenic angles bilaterally. Thereis no discernible pneumothorax.IMPRESSION:Increasing perihilar and bilateral lower lobe opacities compared to theprior exam dated 11/07/2017. Findings may represent pulmonary edema orpneumonia in the appropriate clinical setting.Comprehensive Metabolic [id number] 08:05:00 Test Item Value Reference Range Interpretation [...] the National Kidney Foundation,http ://nkd ep.nih.gov CK [id number] 08:05:00 Test Item Value Reference Range Interpretation Comments CK (test code = CK) 149 U/L 39-308 N Troponin [id number] 08:02:00 Test Item Value Reference Range Interpretation Comments Troponin T (test code = MADHAV) 0.114 ng/mL 0.000-0.090 H [id number]-[id number] 08:02:00 Test Item Value Reference Range Interpretation Comments NT ProBnp (test code = PBNP) >27252 pg/mL 0-124 H CBC with [id number] 07:53:00 Test Item Value Reference Range Interpretation [...] code = ALYMPH) 0.9 K/cumm 0.5-4.6 N Foster Abs (test code = AMONO) 0.4 K/cumm 0.0-1.2 N Eos Abs (test code = AEOS) 0.11 K/cumm 0.00-0.74 N Baso Abs (test code = ABASO) 0.0 K/cumm 0.00-0.21 N XR CHEST 1 [id number] 21:38:09EXAM: CHEST ONE VIEWINDICATION: CoughCOMPARISON: October 06, 2017TECHNIQUE: AP view of the chest.FINDINGS: The cardiomediastinal silhouette is unchanged. Mild congestive changesbilaterally. No pneumothorax or pleural effusion is identified. Theosseous structures are unremarkable.IMPRESSION: Diffuse congestive changes bilaterally.LOCATION: R16US [place], [id number] 20:09:34AFTER HOURS SERVICE ON: 10/06/2017 8:09 PMRIGHT Lower Extremity Venous Duplex Doppler ExaminationLocation Code S46Mypatfd: SwellingTechnique: Real-time castillo scale, Doppler spectral analysis [...] Lower Extremity Venous Duplex Doppler ExaminationLocation Code V96Bqbpm ry: SwellingTechnique: Real-time castillo scale, Doppler spectral [...] of DVT in the imaged vessels.Comprehensive Metabolic [id number] 17:40:00 Test Item Value Reference Range Interpretation [...] National Kidney Foundation,http ://nkd ep.nih.gov CBC with [id number] 17:15:00 Test Item Value Reference Range Interpretation [...] code = ALYMPH) 1.3 K/cumm 0.5-4.6 N Foster Abs (test code = AMONO) 0.6 K/cumm 0.0-1.2 N Eos Abs (test code = AEOS) 0.12 K/cumm 0.00-0.74 N Baso Abs (test code = ABASO) 0.0 K/cumm 0.00-0.21 N XR CHEST 1 [id number] 16:56:42CHEST 1 VIEW: U43GCHNEKA: coughCOMPARISON:Sep 24, 2017FINDINGS:The heart is enlarged. There is engorgement of the central pulmonaryvasculature. There are patchy bibasilar areas of infiltrate oratelectasis with bilateral effusions. No pneumothorax is present. IMPRESSION: 1. Patchy areas of atelectasis or infiltrate in the lung bases withsmall bilateral effusions and vascular congestion most likely secondaryto CHF.Culture, Blood [id number] 14:58:00Specimen: BloodCollected: 09/24/2017 13:05 Status: Final Last Updated: 09/29/2017 14:58 (1) ER Bed 1 Culture Result (Final) (Final) No Growth After 5 DaysCulture, Blood [id number] 14:58:00Specimen: BloodCollected: 09/24/2017 12:50 Status: Final Last Updated: 09/29/2017 14:58 (1) ER Bed 1 Culture Result (Final) (Final) No Growth After 5 DaysPOC Glucose, [id number] 10:54:00 Test Item Value Reference Range Interpretation Comments POC Glucose (test 168 mg/dL 70-115 H If you con stoker erector your code = POCGLUC) patient crit ically ill, the [facility] Accu- Chek InformII meters hould not be used for Glu cose determinations. Draw a venous Glucose and send to the Main Lab for Analysis. POC Glucose, [id number] 07:16:00 Test Item Value Reference Range Interpretation Comments POC Glucose (test 143 mg/dL 70-115 H If you con stoker erector your code = POCGLUC) patient crit ically ill, the [facility] Accu- Chek InformII meters hould not be used for Glu cose determinations. Draw a venous Glucose and send to the Main Lab for Analysis. CBC with [id number] 07:15:00 Test Item Value Reference Range Interpretation [...] code = ALYMPH) 1.3 K/cumm 0.5-4.6 N Foster Abs (test code = AMONO) 0.7 K/cumm 0.0-1.2 N Eos Abs (test code = AEOS) 0.07 K/cumm 0.00-0.74 N Baso Abs (test code = ABASO) 0.0 K/cumm 0.00-0.21 N Magnesium, [id number] 07:03:00 Test Item Value Reference Range Interpretation Comments Magnesium (test code = MG) 2.0 mg/dL 1.7-2.5 N Basic Metabolic [id number] 07:03:00 Test Item Value Reference Range Interpretation [...] National Kidney Foundation,http ://nkd ep.nih.gov POC Glucose, [id number] 21:40:00 Test Item Value Reference Range Interpretation Comments POC Glucose (test 129 mg/dL 70-115 H If you con stoker erector your code = POCGLUC) patient crit ically ill, the [facility] Accu- Chek InformII meters hould not be used for Glu cose determinations. Draw a venous Glucose and send to the Main Lab for Analysis. Hep B Surface [id number] 18:36:00 Test Item Value Reference Range Interpretation Comments Hep Bs Ag (test code = HBSAG) Nonreactive Non-Reactive A POC Glucose, [id number] 10:51:00 Test Item Value Reference Range Interpretation Comments POC Glucose (test 216 mg/dL 70-115 H If you con stoker erector your code = POCGLUC) patient crit ically ill, the [facility]eline Accu- Chek InformII meters hould not be used for Glu cose determinations. Draw a venous Glucose and send to the Main Lab for Analysis. POC Glucose, [id number] 07:57:00 Test Item Value Reference Range Interpretation Comments POC Glucose (test 164 mg/dL 70-115 H If you con stoker erector your code = POCGLUC) patient crit ically ill, the [facility]eline Accu- Chek InformII meters hould not be used for Glu cose determinations. Draw a venous Glucose and send to the Main Lab for Analysis. POC Glucose, [id number] 19:47:00 Test Item Value Reference Range Interpretation Comments POC Glucose (test 140 mg/dL 70-115 H Notify RN or MDIf you code = POCGLUC) consider you r patient critically ill, the [facility] Accu-Chek InformII metershould not be used for Glucose determinations. Draw a venous Glucose and send to the Main Lab for Analysis. Troponin [id number] 19:36:00 Test Item Value Reference Range Interpretation Comments Troponin T (test code = MADHAV) 0.121 ng/mL 0.000-0.090 H CK [id number] 19:25:00 Test Item Value Reference Range Interpretation Comments CK (test code = CK) 160 U/L 39-308 N The valu e HIDE originally released by DEAN WATERS on 09/25/2017 19:1 2 waschanged to 1 60 by GINO on 09/25 19:24 CKMB (test code = 3.0 ng/mL 0.0-4.9 N CKMB) CKMB% (test code = 1.9 % 0.0-3.4 N The value HIDE originally CKMBP) released by [facility] on 09/25/2017 19:1 2 waschanged to 1 .9 by GINO on 09/25 19:24 POC Glucose, [id number] 16:42:00 Test Item Value Reference Range Interpretation Comments POC Glucose (test 123 mg/dL 70-115 H If you con stoker erector your code = POCGLUC) patient crit ically ill, the Madeline Accu- Chek InformII meters hould not be used for Glu cose determinations. Draw a venous Glucose and send to the Main Lab for Analysis. POC Glucose, [id number] 12:09:00 Test Item Value Reference Range Interpretation Comments POC Glucose (test 141 mg/dL 70-115 H If you con stoker erector your code = POCGLUC) patient crit ically ill, the Madeline Accu- Chek InformII meters hould not be used for Glu cose determinations. Draw a venous Glucose and send to the Main Lab for Analysis. Hep B Surface [id number] 07:59:00 Test Item Value Reference Range Interpretation Comments Hep Bs Ag (test code = HBSAG) Nonreactive Non-Reactive A CK [id number] 07:43:00 Test Item Value Reference Range Interpretation Comments CK (test code = CK) n/a U/L 39-308 N CKMB (test code = CKMB) 2.4 ng/mL 0.0-4.9 N CKMB% (test code = CKMBP) 0.0 % 0.0-3.4 N Troponin [id number] 07:38:00 Test Item Value Reference Range Interpretation Comments Troponin T (test code = MADHAV) 0.134 ng/mL 0.000-0.090 H Thyroid Stimulating Hormone (TSH)2017-09-25 07:38:00 Test Item Value Reference Range Interpretation Comments TSH (test code = TSH) 1.10 mIU/mL 0.270-4.200 N [id number] 07:38:00 Test Item Value Reference Range Interpretation Comments Phosphorus (test code = PO4) 3.4 mg/dL 2.70-4.50 N Comprehensive Metabolic [id number] 07:38:00 Test Item Value Reference Range Interpretation [...] the National Kidney Foundation,http ://nkd ep.nih.gov Magnesium, [id number] 07:38:00 Test Item Value Reference Range Interpretation Comments Magnesium (test code = MG) 2.0 mg/dL 1.7-2.5 N CK [id number] 07:31:00 Test Item Value Reference Range Interpretation Comments CK (test code = CK) 159 U/L 39-308 N Lipid [id number] 07:31:00 Test Item Value Reference Range Interpretation Comments Cholesterol (test 118 mg/dL 0-200 N code = CHOL) Triglycerides (test 170 mg/dL 9-200 N code = TRIG) HDL (test code = 49 mg/dL 40-60 N HDL) Chol/HDL (test code 2.4 Ratio 0.0-5.0 N = CHOLPHDL) LDL, Calculated 35 0-130 N (NOTE)RISK O F HEART (test code = LDLC) DISEASEPu blished by [place] Heart AssociationAnal yte Optim al Boderline Increased RiskC HOL <200 200-239 >240TRI G <150 150-199 >200HDL Male: >60 <40HDL Female: >60 <50 LDL < 100 130-15 9 >160 LDL NEAR OPTIMAL IS 100- 129 VLDL (test code = 34 mg/dL 5-40 N VLDL) LDL/HDL (test code = 1 LDLPHDL) Glycosylated [id number] 07:24:00 Test Item Value Reference Range Interpretation Comments HBA1c (test code = HBA1C) 5.0 % 4.8-5.9 N CBC with [id number] 07:20:00 Test Item Value Reference Range Interpretation [...] code = ALYMPH) 0.8 K/cumm 0.5-4.6 N Foster Abs (test code = AMONO) 0.5 K/cumm 0.0-1.2 N Eos Abs (test code = AEOS) 0.10 K/cumm 0.00-0.74 N Baso Abs (test code = ABASO) 0.0 K/cumm 0.00-0.21 N POC Glucose, [id number] 07:03:00 Test Item Value Reference Range Interpretation Comments POC Glucose (test 147 mg/dL 70-115 H If you con stoker erector your code = POCGLUC) patient crit ically ill, the Madeline Accu- Chek InformII meters hould not be used for Glu cose determinations. Draw a venous Glucose and send to the Main Lab for Analysis. POC Glucose, [id number] 22:05:00 Test Item Value Reference Range Interpretation Comments POC Glucose (test 134 mg/dL 70-115 H If you con stoker erector your code = POCGLUC) patient crit ically ill, the Madeline Accu- Chek InformII meters hould not be used for Glu cose determinations. Draw a venous Glucose and send to the Main Lab for Analysis. Blood Gas+Lytes+Glu+Ca+Hgb+Hct+[id number] 18:31:00 Test Item Value Reference Range Interpretation [...] (test code = alokrblvverqnscrit COMMENT) liz Pierre@ [id number]/23figrrt Puncture Site (test code = Radial. R PUNSITE) Drawing Tech ID (test code gianfranco fi = DRAWTECH) iPAP (test code = IPAP) 0 cmH2O Respiratory Rate (test code 0 = RESP RATE) Lactic Acid, Blood Gas 0.4 mmol/L (test code = BGLA) CT CHEST W/O [id number] 16:48:03CT CHEST W/O CONTRASTLOCATION CODE: R16 HISTORY: [...] bilateral axillary, prevascular, andparatracheal lymph nodes.Influenza B [id number] 14:36:00Specimen: NasalCollected: 09/24/2017 14:04 Status: Final Last [...] Culture of negative samples is recommended.Influenza A [id number] 14:34:00Specimen: NasalCollected: 09/24/2017 14:04 Status: Final Last [...] Culture of negative samples is recommended.Comprehensive Metabolic [id number] 13:54:00 Test Item Value Reference Range Interpretation [...] is not provided , and the patient isBrady-Glenny can, multiply by 1.2 12. If sex [...] the National Kidney Foundation,http ://nkd ep.nih.gov Troponin [id number] 13:54:00 Test Item Value Reference Range Interpretation Comments Troponin T (test code = MADHAV) 0.124 ng/mL 0.000-0.090 H Zie-[id number] 13:54:00 Test Item Value Reference Range Interpretation Comments NT ProBnp (test code = PBNP) >59140 pg/mL 0-124 H CK [id number] 13:54:00 Test Item Value Reference Range Interpretation Comments CK (test code = CK) 222 U/L 39-308 N CKMB (test code = CKMB) 3.1 ng/mL 0.0-4.9 N CKMB% (test code = CKMBP) 1.4 % 0.0-3.4 N CK [id number] 13:54:00 Test Item Value Reference Range Interpretation Comments CK (test code = CK) 222 U/L 39-308 N Partial Thromboplastin [id number] 13:43:00 Test Item Value Reference Range Interpretation Comments aPTT (test code = PTT) 35.70 seconds 24.39-37.25 N Prothrombin [id number] 13:43:00 Test Item Value Reference Range Interpretation Comments PT (test code = PT) 11.30 seconds 9.78-13.35 N INR (test code = INR) 0.99 Ratio 0.6-1.2 N Lactic Acid [id number] 13:41:00 Test Item Value Reference Range Interpretation Comments Lactic Acid, Bld (test code = LAC) 1.3 mmol/L 0.5-1.9 N CBC with [id number] 13:32:00 Test Item Value Reference Range Interpretation [...] code = ALYMPH) 1.2 K/cumm 0.5-4.6 N Foster Abs (test code = AMONO) 0.6 K/cumm 0.0-1.2 N Eos Abs (test code = AEOS) 0.23 K/cumm 0.00-0.74 N Baso Abs (test code = ABASO) 0.0 K/cumm 0.00-0.21 N XR CHEST 1 [id number] 12:50:14XR CHEST 1 VIEWLOCATION: [id number]: None.INDICATION: CoughDISCUSSION:A single portable chest radiograph was [...] greater thanleft.3. Enlarged cardiac silhouette.T-helper cells (CD4) [id number] 09:09:50 Test Item Value Reference Range Interpretation Comments T-helper cells (CD4) count (test code 602 uL = 50719-7) [facility], by PCR, [id number] 09:09:49 Test Item Value Reference Range Interpretation Comments HIV-1RNA, serum, by PCR, quantitative 20 /mL (test code = 36085) [facility]
--- NOTE | 2021-08-10 11:51 | EDPHYS ---
Physician Documentation [facility] Name: Salvatore Goldman Age: 66 yrs Sex: Male : 1955 Arrival Date: 08/10/2021 Time: 11:13 Bed 3 Private MD: ED Physician Brennan Nicole HPI: 08/10 11:48 This 66 yrs old Black Male presents to ER via EMS with complaints of Palpitations. sp3 11:48 66-year-old male well-known to the ED here with multiple medical problems including sp3 cirrhosis, HIV, diabetes, heart valve, multiple episodes of prior SVT presents again today as he did yesterday for SVT which was resolved with vagal maneuvers and/or adenosine. Today EMS gave 12 mg of adenosine and patient symptoms are fully resolved prior to arrival. Patient has no headache, neck pain, chest pain, shortness breath, back pain, abdominal pain, nausea, vomiting, diarrhea, changes in diet, fever, URI symptoms, any other new ROS at this time.. Historical: - Allergies: 11:26 No Known Allergies; tw2 - Home Meds: 11:26 warfarin 5 mg Oral tab 1 tab saturday and for Deep Vein Thrombosis Prevention tw2 [Active]; aspirin 81 mg Oral tab 81 mg daily for Myocardial Infarction Prevention [Active]; atorvastatin 20 mg Oral tab 1 tab once daily for atherosclerotic cardiovascular disease [Active]; atropine 0.01 % Opht dpem 1 drop daily for AIDS/HIV [Active]; benzonatate 100 mg Oral cap 1 cap 3 times per day [Active]; calcium acetate(phosphat bind) 667 mg oral tab 6 6 TABS DAILY daily for Renal Osteodystrophy with Hyperphosphatemia [Active]; Isentress 400 mg Oral tab 1 tab 2 times per day for prevention of HIV infection after exposure [Active]; Kaletra 200-50 mg Oral tab 2 tabs 2 times per day for prevention of HIV infection after exposure [Active]; lamivudine 10 mg/mL Oral soln 2.5 mL once daily for prevention of HIV infection after exposure [Active]; metoprolol tartrate 25 mg Oral tab 1 tab once daily [Active]; Daija-Kodak 0.8 mg Oral tab 1 tab daily for Vitamin Deficiency Prevention [Active]; Vitamin D-3 with Aloe 5000 iu Oral 5000 IU WEEKLY for Vitamin Deficiency Prevention [Active]; warfarin 10 mg Oral tab 2 tabs Saturday AND SATURDAY for Deep Vein Thrombosis Prevention [Active]; - PMHx: 11:26 HIV; Hepatitis; heart valve; Hyperlipidemia; Cirrhosis; Diabetes - NIDDM; Dialysis; tw2 Hypertensive disorder; Karposi Sarcoma (left leg); kidney failure; L arm HD access; - Immunization history:: Adult Immunizations. - Social history:: Smoking status: . ROS: 11:49 Constitutional: Negative for fever, chills, and weight loss, Eyes: Negative for injury, sp3 pain, redness, and discharge, Neck: Negative for injury, pain, and swelling, Cardiovascular: Negative for chest pain, palpitations, and edema, Respiratory: Negative for shortness of breath, cough, wheezing, and pleuritic chest pain, Abdomen/GI: Negative for abdominal pain, nausea, vomiting, diarrhea, and constipation, : Negative for injury, bleeding, discharge, and swelling, MS/Extremity: Negative for injury and deformity, Skin: Negative for injury, rash, and discoloration, Neuro: Negative for headache, weakness, numbness, tingling, and seizure, Endocrine: Negative for neck swelling, polydipsia, polyuria, polyphagia, and marked weight changes, Hematologic/Lymphatic: Negative for swollen nodes, abnormal bleeding, and unusual bruising. 11:49 All other systems are negative. Exam: 11:49 Constitutional: This is a well developed, well nourished patient who is awake, alert, sp3 and in no acute distress. Head/Face: Normocephalic, atraumatic. Eyes: Pupils equal round and reactive to light, extra-ocular motions intact. Lids and lashes normal. Conjunctiva and sclera are non-icteric and not injected. Cornea within normal limits. Periorbital areas with no swelling, redness, or edema. Neck: Trachea midline, no thyromegaly or masses palpated, and no cervical lymphadenopathy. Supple, full range of motion without nuchal rigidity, or vertebral point tenderness. No Meningismus. Chest/axilla: Normal chest wall appearance and motion. Nontender with no deformity. No lesions are appreciated. Cardiovascular: Regular rate and rhythm with a normal S1 and S2. No gallops, murmurs, or rubs. Normal PMI, no JVD. No pulse deficits. Respiratory: Lungs have equal breath sounds bilaterally, clear to auscultation and percussion. No rales, rhonchi or wheezes noted. No increased work of breathing, no retractions or nasal flaring. Abdomen/GI: Soft, non-tender, with normal bowel sounds. No distension or tympany. No guarding or rebound. No evidence of tenderness throughout. Back: No spinal tenderness. No costovertebral tenderness. Full range of motion. MS/ Extremity: Pulses equal, no cyanosis. Neurovascular intact. Full, normal range of motion. Neuro: Awake and alert, GCS 15, oriented to person, place, time, and situation. Cranial nerves II-XII grossly intact. Motor strength 5/5 in all extremities. Sensory grossly intact. Cerebellar exam normal. Normal gait. Psych: Awake, alert, with orientation to person, place and time. Behavior, mood, and affect are within normal limits. Vital Signs: 11:21 BP 131 / 77; Pulse 92; Resp 17; Temp 97.9(TE); Pulse Ox 98% on R/A; Weight 72.57 kg tw2 (R); Height 5 ft. 7 in. (170.18 cm); 12:08 BP 147 / 82; Pulse 92; Resp 17; Pulse Ox 96% on R/A; tw2 11:21 Body Mass Index 25.06 (72.57 kg, 170.18 cm) tw2 MDM: 11:33 Patient medically screened. sp3 11:49 Data reviewed: vital signs, nurses notes. ED course: 66-year-old male with SVT now sp3 fully resolved. EKG demonstrates normal sinus rhythm at 90 bpm with normal intervals, normal QRS, normal axis, normal ST/T-segment without evidence of ischemia. Will discharge patient home at this time. No work-up is indicated.. 08/10 11:46 Order name: EKG - Nurse/Tech; Complete Time: 11:46 tw2 Administered Medications: No medications were administered Disposition Summary: 08/10/21 11:50 Discharge Ordered Location: Home sp3 Condition: Stable sp3 Diagnosis - Supraventricular tachycardia sp3 Followup: sp3 - With: Private Physician - When: - Reason: Re-evaluation by your physician Discharge Instructions: - Discharge Summary Sheet sp3 - Supraventricular Tachycardia, Adult sp3 Forms: - Medication Reconciliation Form sp3 - Thank You Letter sp3 - Antibiotic Education sp3 - Prescription Opioid Use sp3 Signatures: Maryam Kim RN RN tw2 Brennan Nicole MD MD sp3 Corrections: (The following items were deleted from the chart) : 11:26 Allergies: No Known Allergies; tw2 tw2 11:26 Allergies: Vitamin D-3 with Aloe; tw2 11:50 11:49 ED course: 66-year-old male with SVT now fully resolved. EKG demonstrates normal sp3 sinus rhythm at 90 bpm with normal intervals, normal QRS, normal axis, normal ST/T-segment without evidence of ischemia.. sp3
--- NOTE | 2021-08-10 11:51 | ER ---
Nurse's Notes [facility] Name: Salvatore Goldman Age: 66 yrs Sex: Male : 1955 Arrival Date: 08/10/2021 Time: 11:13 Bed 3 Private MD: Diagnosis: Supraventricular tachycardia Presentation: 08/10 11:13 Chief complaint: EMS states: pt went to dialysis and everything was normal. went home tw2 and was as expected. he states he was sitting down eating and noticed his heart racing again. when we arrived it was HR 175. SVT. we tried vagal maneuvers that were unsuccessful. so then we gave him 12 mg Adenosine IV and that converted him to sinus with pvc's in the 80's. this is about the 3rd time we ran on him for the same complaint. his glassie is in [place] but he has no way to get there and is hoping that the glassie could be called and sent up there. 11:21 Coronavirus screen: At this time, the client does not indicate any symptoms associated tw2 with coronavirus-19. Ebola Screen: Patient denies travel to an Ebola-affected area in the 21 days before illness onset. Initial Sepsis Screen: Does the patient meet any 2 criteria? HR > 90 bpm. No. Patient's initial sepsis screen is negative. Does the patient have a suspected source of infection? No. Patient's initial sepsis screen is negative. Risk Assessment: Do you want to hurt yourself or someone else? Patient reports no desire to harm self or others. Onset of symptoms was August 10, 2021. Care prior to arrival: Medication(s) given: Adenosine, 12 mg, x 1, IV initiated. 18 GA, in the right antecubital area. 11:21 Method Of Arrival: EMS: [facility] tw2 11:21 Acuity: NARDA 2 tw2 Triage Assessment: 11:13 General: Appears in no apparent distress. Behavior is calm, cooperative, appropriate tw2 for age. Pain: Denies pain. Neuro: Level of Consciousness is awake, alert, obeys commands, Oriented to person, place, time, situation. Cardiovascular: Patient's skin is warm and dry. Dialysis shunt: in the left arm, with palpable thrill. Respiratory: Airway is patent Respiratory effort is even, unlabored. 11:13 GI: No signs and/or symptoms were reported involving the gastrointestinal system. : tw2 No signs and/or symptoms were reported regarding the genitourinary system. Musculoskeletal: Range of motion:. Historical: - Allergies: : No Known Allergies; tw2 - Home Meds: : warfarin 5 mg Oral tab 1 tab saturday and for Deep Vein Thrombosis Prevention tw2 [Active]; aspirin 81 mg Oral tab 81 mg daily for Myocardial Infarction Prevention [Active]; atorvastatin 20 mg Oral tab 1 tab once daily for atherosclerotic cardiovascular disease [Active]; atropine 0.01 % Opht dpem 1 drop daily for AIDS/HIV [Active]; benzonatate 100 mg Oral cap 1 cap 3 times per day [Active]; calcium acetate(phosphat bind) 667 mg oral tab 6 6 TABS DAILY daily for Renal Osteodystrophy with Hyperphosphatemia [Active]; Isentress 400 mg Oral tab 1 tab 2 times per day for prevention of HIV infection after exposure [Active]; Kaletra 200-50 mg Oral tab 2 tabs 2 times per day for prevention of HIV infection after exposure [Active]; lamivudine 10 mg/mL Oral soln 2.5 mL once daily for prevention of HIV infection after exposure [Active]; metoprolol tartrate 25 mg Oral tab 1 tab once daily [Active]; Daija-Kodak 0.8 mg Oral tab 1 tab daily for Vitamin Deficiency Prevention [Active]; Vitamin D-3 with Aloe 5000 iu Oral 5000 IU WEEKLY for Vitamin Deficiency Prevention [Active]; warfarin 10 mg Oral tab 2 tabs Saturday AND SATURDAY for Deep Vein Thrombosis Prevention [Active]; - PMHx: : HIV; Hepatitis; heart valve; Hyperlipidemia; Cirrhosis; Diabetes - NIDDM; Dialysis; tw2 Hypertensive disorder; Karposi Sarcoma (left leg); kidney failure; L arm HD access; - Immunization history:: Adult Immunizations. - Social history:: Smoking status: . Screenin: Abuse screen: Denies threats or abuse. Nutritional screening: No deficits noted. tw2 Tuberculosis screening: No symptoms or risk factors identified. Fall Risk None identified. Assessment: 11:30 Reassessment: see triage assessment. tw2 12:08 Reassessment: Patient appears in no apparent distress at this time. No changes from tw2 previously documented assessment. Patient and/or family updated on plan of care and expected duration. Pain level reassessed. Patient is alert, oriented x 3, equal unlabored respirations, skin warm/dry/pink. Vital Signs: 11:21 BP 131 / 77; Pulse 92; Resp 17; Temp 97.9(TE); Pulse Ox 98% on R/A; Weight 72.57 kg tw2 (R); Height 5 ft. 7 in. (170.18 cm); 12:08 BP 147 / 82; Pulse 92; Resp 17; Pulse Ox 96% on R/A; tw2 11:21 Body Mass Index 25.06 (72.57 kg, 170.18 cm) tw2 ED Course: 11:13 Patient arrived in ED. jd3 11:13 Arm band placed on. tw2 11:13 Bed in low position. Call light in reach. cardiac monitor technician on. Pulse ox on. NIBP on. tw2 Warm blanket given. 11:17 Brennan Nicole MD is Attending Physician. sp3 11:20 EKG completed in triage. Results shown to MD. tw2 11:26 Triage completed. tw2 11:30 Maryam Kim, RN is Primary Nurse. tw2 11:30 Maintain EMS IV. Dressing intact. Good blood return noted. Site clean \T\ dry. Gauge \T\ tw 2 site: 22g RIGHT hand. 12:07 No provider procedures requiring assistance completed. IV discontinued, intact, tw2 bleeding controlled, No redness/swelling at site. Pressure dressing applied. Administered Medications: No medications were administered Outcome: 11:50 Discharge ordered by MD. sp3 12:08 Discharged to home via wheelchair. tw2 12:08 Condition: stable 12:08 Discharge instructions given to patient, Instructed on discharge instructions, follow up and referral plans. Demonstrated understanding of instructions, follow-up care. 12:09 Patient left the ED. tw2 Signatures: Maryam Kim RN RN tw2 Dean Cee RN RN jd3 Brennan Nicole MD MD sp3 Corrections: (The following items were deleted from the chart) : 11:13 Chief complaint: EMS states: pt went to dialysis and everything was normal. went tw2 home and wa tw2 11: Allergies: No Known Allergies; tw2 tw2 11: Allergies: Vitamin D-3 with Aloe; tw2 tw2 11: 11:13 Respiratory: Airway is patent Respiratory effort is even, unlabored, tw2 2 12:08 11:30 Maintain EMS IV. Dressing intact. Good blood return noted. Site clean \T\ dry. tw2 Gauge \T\ site: 18 g RIGHT AC. 2
[2021-08-10 12:14] VITALS: TEMP 97.9
[2021-08-10 12:15] VITALS: BP 147/82; O2SAT 96
== END 2021-08-10 12:09 | disposition home or self-care (01) ==
LOC: ER 11:11
DX: I47.1 Supraventricular tachycardia (principal); Z21 Asymptomatic human immunodeficiency virus [HIV] infection status; E78.5 Hyperlipidemia, unspecified; E11.9 Type 2 diabetes mellitus without complications; I10 Essential (primary) hypertension
CPT/HCPCS: 93005; 99284

== ENCOUNTER 2021-08-13 19:29 | Observation (INO) | payer OTHER ==
--- OUTSIDE RECORDS SUMMARY | 2021-08-13 19:55 | XMS REPORT | Continuity of Care Document ---
:1955 Author Organization [facility] t Address [address] [place] [address] Care Team Providers Name Role Phone BOBBY RADHA Primary Care Physician Unavailable MELVIN SHER Attending Clinician Unavailable DELANEY OCAMPO Attending Clinician Unavailable BOBBY Attending Clinician Unavailable SOBEIDA BARRY Attending Clinician Unavailable Xavier Alexander Attending Clinician [phone] Javed Attending Clinician Unavailable Reno MAYA Attending [...] ANTONIO Attending Clinician Unavailable Joy Attending Clinician [phone] Varun Attending Clinician [phone] Yoav Attending Clinician Unavailable Xavier HOLLOWAY Attending Clinician Unavailable ELIANA Attending Clinician Unavailable SHILA JAFFE MD MEric Attending Clinician Unavailable RAHUL OCAMPO Admitting Clinician Unavailable LSIA Admitting Clinician Unavailable MD AYE GONZALEZ Admitting Clinician Unavailable KAZ TURPIN Admitting Clinician Unavailable TROY SOLANO Admitting Clinician Unavailable SANJUANA BREWER Admitting Clinician Unavailable Xavier HOLLOWAY Admitting Clinician Unavailable ELIANA Admitting Clinician Unavailable SHILA JAFFE MD, M.D., M Admitting Clinician Unavail able Xavier Alexander Unavailable [phone] Varun Unavailable [phone] Payers Payer Name Policy Type Policy Number Effective Date Expiration Date S prabhjot MEDICARE A B [id number] 2010 00:00:00 MEDICARE PART A & [id number] 2010 B 00:00:00 MEDICARE PART A [id number] 2010 \\T\\ B 00:00:00 CDC REVIEW [id number] 2020 00:00:00 Problems Condition Condition Condition Status [...] 2017-12-02 Joel Alexander on 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 Ramu Givkwik i 00:00: ty 00 Health Encounter Condition Active 2017-12-02 Joel Alexander for 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 [facility] i screening 00:00: ty for eye 00 Health and ear disorders Hypertensi Condition Active 2017-12-02 Joel Alexander ve 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 [facility] i retinopath 00:00: ty y, 00 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, 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 [facility]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 00:00: ty 00 Health HIV Condition Active 2017-12-02 Angela Alexander gacjessee infection 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 Ramu Com mary 00:00: ty 00 Health Presbyopia Condition Active 2017-12-02 Joel Bond - OU 12-02 15:13:40 [facility] Hyperopia Condition Active 2017-12-02 Joel Bond - OU 12-02 15:13:40 [facility] Allergies, Adverse Reactions, Alerts Allergy Allergy Status Severity Reaction(s) Onset Inactive Treating Comm ents Source Name Type Date Date Clinician CODEINE Allergy Active Med Other [facility] 12-02 00:00: 00 NO KNOWN Drug Active [facility] ALLERGIE Class ity of [facility] Social History Social Habit Start Date Stop Date Quantity Comments Source time of call 2021-08-02 2021-08-02 08/02/2021 10:18 [facility] 10:17:49 10:17:49 AM Health Medications Ordered Filled Start Stop Current Ordering Indication Dosage Frequency Signature Comments Components Source Medication Medication Date Date Medication? Clinician (SIG) Name Name LAMIVUDINE Yes [facility] (LAMIVUDINE - Communi TABS) TABS 00:00: ty 00 Health VITAMIN D2 Yes [facility] (ERGOCALCIF - Communi DARIAN TABS) 00:00: ty TABS 00 [...] rate 2021-08-02 10:11:01 90 /min [facility] Health Procedures Procedure Date / Time Performing Clinician Source Performed New Patient Comprehensive 2021-08-02 11:06:20 Ramu Alexander [facility] - [address] Health [id number] 2020-06-29 00:00:00 ENCPL 0L1M36S 2020-06-29 00:00:00 ENCPL 0R9P87C 2020-06-29 00:00:00 ENCPL 5A9C85G 2020-06-29 00:00:00 ENCPL 3L4D34Z 2020-06-29 00:00:00 ENCPL 8Q2F72Y 2020-06-29 00:00:00 ENCPL 1C6R21S 2020-06-29 00:00:00 ENCPL 7C2U96H 2020-06-29 00:00:00 ENCPL 6V0E55M 2020-06-29 00:00:00 ENCPL 7H7O92B 2020-06-29 00:00:00 ENCPL 3E8D91L 2020-06-29 00:00:00 ENCPL 0Z3O37Q 2020-06-29 00:00:00 ENCPL 2H7P51G 2020-06-29 00:00:00 ENCPL 8B8T61V 2020-06-29 00:00:00 ENCPL 2C3L83Y 2020-03-05 00:00:00 ENCPL 6K7Z33X 2020-03-05 00:00:00 ENCPL 7G4F63C 2020-03-05 00:00:00 ENCPL 8U5M17G 2020-03-05 00:00:00 ENCPL 9A6B62Y 2020-03-05 00:00:00 ENCPL 8Q7B72T 2020-03-05 00:00:00 ENCPL 1Q6S65M 2020-03-05 00:00:00 ENCPL 9R7X10W 2020-03-05 00:00:00 ENCPL 5P9G30U 2020-03-05 00:00:00 ENCPL 5J0D78W 2020-03-05 00:00:00 ENCPL 1U0O35C 2020-03-05 00:00:00 ENCPL 3L8G74K 2020-03-05 00:00:00 ENCPL 8U3K93H 2020-03-05 00:00:00 ENCPL 4I4R33U 2020-03-05 00:00:00 ENCPL 4G9M53M 2020-03-05 00:00:00 ENCPL 3W5A63P 2020-03-05 00:00:00 ENCPL 3V0C98L 2020-03-05 00:00:00 ENCPL 3G8N12O 2020-03-05 00:00:00 ENCPL 1F1A11J 2020-03-05 00:00:00 ENCPL 1U0X04U 2020-03-05 00:00:00 ENCPL 4Q0M90Z 2020-03-05 00:00:00 ENCPL 3A9K60B 2019-01-08 00:00:00 ENCPL 6E0V34O 2019-01-08 00:00:00 ENCPL 1G8G99V 2019-01-08 00:00:00 ENCPL 4P0B22D 2019-01-08 00:00:00 ENCPL Dispensing Visit (UNLIVSTED 2018-03-25 10:14:05 Cason, Yuki [facility] OPHTHALMOLOGICAL Health SERVICE/PROCEDURE) Spherocyl, bif, plano to 2018-03-11 09:52:57 Cason, Yuki [facility] +/- 4.00d sphere, 0.12 to Health 2.00d cyl, per lens Frames, purchases 2018-03-11 09:52:36 Cason, Yuki [facility] Spherocyl, bif, plano to 2017-12-03 07:50:03 CasonYuki [facility] +/- 4.00d sphere, 0.12 to Health 2.00d cyl, per lens Frames, purchases 2017-12-03 07:49:43 CasonYuki [facility] Est Patient Comprehensive 2017-12-02 15:27:18 Ramu Alexander [facility] - [address] Health New Patient Intermediate 2017-12-02 14:28:18 Mo Bond [facility] - [address] Health Encounters Start End Encounter Admission Attending Care Care Encounter Source Date/Time Date/Time Type Type Clinicians Facility Department ID 2020-07-06 Outpatient MELONIE SHANNON ENCCLR [id number] ENCCLR 21:26:21 N MELVIN 2020-02-26 Inpatient ER DAMARIS, [facility] [id number] [facility] 23:10:00 DELANEY 2021-10-23 2021-10-23 [id number] [place] [facility] 2021[facility]09 [id number] [place] 00:00:00 00:00:00 [facility] Bnooki 2021-09-05 2021-09-05 Outpatient [facility] [id number] [place] 00:00:00 00:00:00 Health 2021-08-21 2021-08-21 Outpatient JOSE MIGUEL BARRY [facility] [id number] [place] 00:00:00 00:00:00 Health 2021-08-07 2021-08-07 Outpatient JOSE MIGUEL BARRY [facility] [id number] [place] 00:00:00 00:00:00 Health 2021-08-02 2021-08-02 Office Ramu Alexander [facility] 1 [id number] [facility] 00:00:00 00:00:00 Visit Rosalba Burt [id number] [facility] 2021-07-31 2021-07-31 Outpatient [facility] [id number] [place] 09:23:59 09:30:08 Health 2021-07-31 2021-07-31 Outpatient JOSE MIGUEL BARRY [facility] [id number] [place] 07:58:35 08:41:53 Health 2021-07-31 2021-07-31 Outpatient FRANCESCO [facility] [id number] [place] 00:00:00 00:00:00 [facility] 2021-07-21 2021-07-21 Outpatient EL MARQUEZ, SLE SLE [id number] SLE 07:11:08 23:59:00 [place] 2021-07-21 2021-07-21 Outpatient [facility] [id number] [facility] 00:00:00 23:59:00 Bj Medicin e 2021-07-19 2021-07-19 Outpatient EL [facility] SLE [id number] SLE 07:19:43 07:19:43 2021-07-17 2021-07-17 Outpatient [facility] [id number] [place] 12:03:08 12:07:37 [facility] 2021-07-17 2021-07-17 Outpatient BOBBY [facility] [id number] Ló[place] 09:04:13 11:23:22 [facility] 2021-07-17 2021-07-17 Outpatient JOSE MIGUEL BARRY [facility] [id number] [place] 08:46:08 09:12:52 Health 2021-07-17 2021-07-17 Outpatient SELINA-GABBY [facility] [id number] [place] 00:00:00 00:00:00 JOSE GUILLERMO 2021-07-17 2021-07-17 Outpatient HARRIETT [facility] [id number] [place] 00:00:00 00:00:00 [facility] 2021-07-10 2021-07-10 Outpatient JOSE MIGUEL BARRY [facility] [id number] [place] 00:00:00 00:00:00 [facility] 2021-07-03 2021-07-03 Outpatient JOSE MIGUEL BARRY [facility] [id number] [place] 07:40:01 14:04:21 [facility] 2021-07-03 2021-07-03 Outpatient JONATHANDINORAEstee [facility] [id number] [place] 08:05:52 08:18:57 [facility] 2021-07-03 2021-07-[address] [place] [address] [id number] [place] 08:05:52 08:18:57 [facility] 2021-07-03 2021-07-03 Outpatient JUDD, [facility] [id number] [place] 00:00:00 00:00:00 [facility] 2021-07-03 2021-07-03 Outpatient HARRIETT [facility] [id number] [place] 00:00:00 00:00:00 [facility] 2021-06-26 2021-06-26 Outpatient JOSE MIGUEL BARRY [facility] [id number] [place] 07:54:30 08:35:16 [facility] 2021-06-12 2021-06-12 Outpatient JOSE MIGUEL BARRY [facility] [id number] [place] 07:56:03 08:33:36 [facility] 2021-05-29 2021-05-29 Outpatient JOSE MIGUEL BARRY [facility] [id number] [place] 08:28:20 09:29:41 [facility] 2021-05-15 2021-05-15 Outpatient JOSE MIGUEL BARRY [facility] [id number] [place] 08:03:38 08:31:36 [facility] 2021-05-01 2021-05-01 Outpatient [facility] [id number] [place] 08:40:51 08:46:27 [facility] 2021-05-01 2021-05-01 Outpatient JOSE MIGUEL BARRY [facility] [id number] [place] 08:04:58 08:32:39 [facility] 2021-05-01 2021-05-01 Outpatient DANIELLE [facility] [id number] [place] 00:00:00 00:00:00 [facility] 2021-04-24 2021-04-24 Outpatient JOSE MIGUEL BARRY [facility] [id number] [place] 08:03:45 08:22:54 [facility] 2021-04-17 2021-04-17 Outpatient JOSE MIGEUL BARRY [facility] [id number] [place] 08:38:35 08:58:58 [facility] 2021-04-10 2021-04-10 Outpatient FRANCESCO [facility] [id number] [place] 00:00:00 00:00:00 [facility] 2021-03-27 2021-03-27 Outpatient DANIELLE [facility] [id number] [place] 12:10:09 12:36:55 [facility] 2021-03-27 2021-03-27 Outpatient JOSE MIGUEL BARRY [facility] [id number] [place] 09:45:17 10:13:09 [facility] 2021-03-07 2021-03-07 Outpatient JOSE MIGUEL BARRY [facility] [id number] [place] 12:04:05 12:23:09 [facility] 2021-02-20 2021-02-20 Outpatient [facility] [id number] [place] 08:34:14 08:39:27 [facility] 2021-02-20 2021-02-20 Outpatient JOSE MIGUEL BARRY [facility] [id number] [place] 08:09:20 08:34:30 [facility] 2021-02-20 2021-02-20 Outpatient HARRIETT [facility] [id number] [place] 00:00:00 00:00:00 [facility] 2021-02-19 2021-02-19 Emergency [facility] [id number] [place] 00:00:00 00:00:00 KRISTI 590 [facility] 2021-02-06 2021-02-06 Outpatient [facility] [id number] [place] 09:14:10 09:17:27 [facility] 2021-02-06 2021-02-06 Outpatient JOSE MIGUEL BARRY [facility] [id number] [place] 08:49:54 09:14:22 [facility] 2021-02-06 2021-02-06 Outpatient DANIELLE [facility] [id number] [place] 00:00:00 00:00:00 [facility] 2021-02-06 2021-02-06 Outpatient JUDD [facility] [id number] [place] 00:00:00 00:00:00 [facility] 2021-01-23 2021-01-23 Outpatient DANIELLE [facility] [id number] [place] 11:31:24 12:44:32 [facility] 2021-01-23 2021-01-23 Outpatient JOSE MIGUEL BARRY [facility] [id number] [place] 10:14:28 10:36:06 [facility] 2021-01-10 2021-01-10 Outpatient JOSE MIGUEL BARRY [facility] [id number] [place] 07:22:07 11:41:14 [facility] 2021-01-09 2021-01-09 Outpatient [facility] [id number] [place] 09:13:08 09:20:36 [facility] 2021-01-09 2021-01-09 Outpatient LORENZANA, [facility] [id number] [place] 08:19:59 09:12:38 [facility] 2021-01-09 2021-01-09 Outpatient JESSICA, [facility] [id number] [place] 00:00:00 00:00:00 [facility] 2021-01-09 2021-01-09 Outpatient HARRIETT, [facility] [id number] [place] 00:00:00 00:00:00 [facility] 2021-01-04 2021-01-04 Outpatient JOSE MIGUEL BARRY [facility] [id number] [place] 11:36:44 12:43:02 [facility] 2021-01-02 2021-01-02 Outpatient JOSE MIGUEL BARRY [facility] [id number] [place] 07:27:21 12:04:53 [facility] 2021-01-02 2021-01-02 Outpatient JOSE MIGUEL BARRY [facility] [id number] [place] 00:00:00 00:00:00 [facility] 2020-12-30 2020-12-30 Outpatient [facility] [id number] [place] 00:00:00 00:00:00 [facility] 2020-12-19 2020-12-19 Outpatient JOSE MIGUEL BARRY [facility] [id number] [place] 09:18:35 09:59:02 [facility] 2020-12-16 2020-12-16 Outpatient JESSICA, [facility] [id number] [place] 10:25:40 10:35:40 [facility] 2020-12-16 2020-12-16 Outpatient JESSICA, [facility] [id number] [place] 00:00:00 00:00:00 [facility] 2020-11-28 2020-11-28 Emergency X VENITA, [facility] [id number] Univers 22:52:00 22:52:00 JAMIL lopez [facility] 2020-11-24 2020-11-24 Outpatient RUPERTO, [facility] [id number] [place] 13:25:44 13:59:48 [facility] 2020-11-10 2020-11-10 Outpatient RUPERTO, [facility] [id number] [place] 00:00:00 00:00:00 [facility] 2020-11-09 2020-11-09 Outpatient JONNY MON [facility] [id number] [place] 07:51:58 08:14:33 Health 2020-10-27 2020-10-27 Outpatient RUPERTO, [facility] [id number] [place] 12:02:34 12:25:02 [facility] 2020-10-20 2020-10-20 Outpatient RUPERTO, [facility] [id number] [place] 00:00:00 00:00:00 [facility] 2020-10-20 2020-10-20 Outpatient RUPERTO, [facility] [id number] [place] 00:00:00 00:00:00 [facility] 2020-10-06 2020-10-06 Outpatient RUPERTO, [facility] [id number] [place] 11:11:47 11:11:47 [facility] 2020-07-08 2020-07-08 Outpatient CHRISTOS, [facility] [id number] [facility] 08:37:00 08:37:00 MELVIN [id number] [facility] 2020-05-09 2020-06-28 Inpatient VO, [facility] [id number] [place] 00:00:00 00:00:[id number] 2020-04-21 2020-04-21 Emergency ER SLE Emergency [id number] SLE 20:49:00 20:49:00 2019-11-09 2019-11-09 Outpatient [facility] [id number] [facility] 08:51:00 08:51:00 FIDELINA PaulOLA 2019-09-12 2019-09-12 Emergency MUÑOZ, [facility] [id number] [place] 00:00:00 00:00:00 [facility] 2017-12-02 2017-12-02 Office Ramu Alexander [facility] [id number] [facility] 00:00:00 00:00:00 Visit Julieta Hamilton [id number] Co [facility] 2017-12-02 2017-12-02 Office Mo Bond [facility] Encoun ter/ [facility] 00:00:00 00:00:00 Visit CasonYuki estrada [id number] [facility] [id number] [facility] 2017-11-18 2017-11-20 Inpatient C AMIE, [facility] MED [id number] St. 13:43:00 13:54:00 [facility] 2017-11-07 2017-11-07 Emergency E [facility] MED [id number] St. 20:22:00 20:22:00 [facility] 2017-10-06 2017-10-06 Emergency E ELIANA, [facility] MED [id number] 14:25:00 14:25:00 [facility] Results Test Description Test Time Test Comments Results Result Comments Source PROTHROMBIN TIME/INR 2021-07-21 07:51:16 Test Item Value Reference Range Interpretation Comme nts PROTIME (BEAKER) (test code 19.0 seconds 11.9-14.2 H = 759) INR (BEAKER) (test code = 1.62 See_Comment [ Automated message] The [employer] system which ge nerated this result transmit jayla reference range: <=5.90. The reference range was not u sed to interpret this result as normal/abnormal . RECOMMENDED COUMADIN/WARFARIN INR THERAPY RANGESSTANDARD DOSE: 2.0 - 3.0 Includes: PROPHYLAXIS forvenous thrombosis, systemic embolization; TREATMENT for venous thrombosis and/or pulmonary embolus.HIGH RISK: Target INR is 2.5-3.5 for patients with mechanical heart valves.SARS-COV2/RT-PCR ([facility]) 2021-07-19 20:41:44 Test Item Value Reference Range Interpretation Comments SARS-COV2/RT-PCR (test code = Negative Negative [id number]) Negative result for this test determines that [...] the [employer] SARS-CoV-2 assay.Fact Sheet for Healthcare Providers:https://www.[employer].chairez/emerita/RT SARS-CoV-2 HCP Fact Sheet 51- 088668.pdfFact Sheet for Healthcare Patients:https://www.[employer].chairez/emerita/RT SARS-CoV-2 Patient Fact Sheet EN 51-838513Q0.pdfHIV1 RNA # Plas RADHA DL=20 2021-07-05 16:15:28 Test Item Value Reference Range Interpretation Comments HIV1 RNA [facility] Ql RADHA+probe NOT DETECTED Not detected (test code = 01205-1) This test utilizes FDA cleared ERICH AmpliPrep/ERICH TaqMan HIV-1 test 2.0 from [employer] which allows quantitation of viral loads between [...] patients with HIV-1 infection. CD4+CD8+ Cells NFr [id number] 13:12:03 Test Item Value Reference Range Interpretation Comments T-cell CD4 subset 480 cells/uL See_Comment [Automate d message] pnl Bld (test code The lalito handy which = 31522-6) generated this result transmitted ref erence range: 431-1,62 3. The reference range was not used to interpr et this result as normal/abnormal . CD3+CD4+ 1.54 ratio 0.86-2.05 Cells/CD3+CD8+ Cells Bld (test code = 41256-1) CD4+CD8+ Cells NFr 40.0 % 25.0-56.0 Bld (test code = 91137-1) RPR [id number] 14:32:36 Test Item Value Reference Range Interpretation Comments T pallidum Ab Ser Ql Aggl (test NEGATIVE Negative, Equivocal code = 09076-8) Reagin+T pallidum IgG+IgM NEGATIVE Negative SerPl-Imp (test code = 62576-2) T-helper cells (CD4) [id number] 10:30:27 Test Item Value Reference Range Interpretation Comments T-helper cells (CD4) count (test code 512 uL = 09200-0) [facility], by [facility], [id number] 10:30:25 Test Item Value Reference Range Interpretation Comments HIV-1RNA, serum, by PCR, quantitative 20 /mL (test code = 11648) [facility] [id number] 11:26:00 Test Item Value Reference Range Interpretation Comments AG HEPATITIS B SURFACE (test NEGATIVE SCREEN NEGATIVE code = HBSAG) AB HEPATITIS A [id number] 03:08:00 Test Item Value Reference Range Interpretation Comments AB HEPATITIS A IGM (test code = HAVMAB) AB HEPATITIS B [id number] 03:08:00 Test Item Value Reference Range Interpretation Comments AB HEPATITIS B SURFACE 96.5 mIU/mL Immunity>9.9 Sta tus of Immunity (test code = HBSAB) Anti-HBs Level --- I ncons istent with Imm unity 0.0 - 9.9Consis tent with Immunity >9.9 AB HEPATITIS A [id number] 03:08:00 Test Item Value Reference Range Interpretation Comments AB HEPATITIS A IGM Negative Negative Performed At: (test code = HAVMAB) [facility] [address] [place], [place] [id number] lauren Chapman MD Ph:[phone] AB HEPATITIS B [id number] 03:08:00 Test Item Value Reference Range Interpretation Comments AB HEPATITIS B SURFACE 96.5 mIU/mL Immunity>9.9 Sta tus of Immunity (test code = HBSAB) Anti-HBs Level --- I ncons istent with Imm unity 0.0 - 9.9Consis tent with Immunity >9.9 COVID 19 Asymptomatic IH [id number] 09:05:00 Test Item Value Reference Range Interpretation [...] in Respiratory specimen by RADHA with probe [id number] 10:30:29 Test Item Value Reference Range Interpretation Comments SARS-CoV-2 (COVID-19) RNA Not detected Not-Detected [Presence] in Respiratory specimen by RADHA with probe detection (test code = 41208-5) SARS-CoV-2 (COVID-19) RNA [Presence] in Respiratory specimen by RADHA with probe [id number] 18:12:42 Test Item Value Reference Range Interpretation Comments SARS-CoV-2 (COVID-19) RNA Not detected Not-Detected [Presence] in Respiratory specimen by RADHA with probe detection (test code = 83804-8) SARS-CoV-2 (COVID-19) RNA [Presence] in Respiratory specimen by RADHA with probe [id number] 12:55:22 Test Item Value Reference Range Interpretation Comments SARS-CoV-2 (COVID-19) RNA Not detected Not-Detected [Presence] in Respiratory specimen by RADHA with probe detection (test code = 14329-0) SARS-CoV-2 (COVID-19) RNA [Presence] in Respiratory specimen by RADHA with probe [id number] 23:46:30 Test Item Value Reference Range Interpretation Comments SARS-CoV-2 (COVID-19) RNA Not detected Not-Detected [Presence] in Respiratory specimen by RADHA with probe detection (test code = 28151-0) TROPONIN [id number] 23:28:00 Test Item Value Reference Range Interpretation [...] failure, acidosis, acute neurological disease, and persistent tachyarrhythmia.Mess Cook ID - PIAYA LBASIC METABOLIC [id number] 23:26:00 Test Item Value Reference Range Interpretation [...] S NOT APPLICABLE FOR DIALYSIS PATIEN TS. Mess Cook ID - AKSHAT LB-TYPE NATRIURETIC FACTOR (BNP)2020-04-21 23:25:00 Test Item Value Reference Range Interpretation Comments B-TYPE NATRIURETIC PEPTIDE 1507 pg/mL 0-100 H (BEAKER) (test code = 700) Mess Cook ID - PIJESSE LPT/[id number] 23:09:00 Test Item Value Reference Range Interpretation [...] mechanical heart valves.CBC W/PLT COUNT & AUTO [id number] 22:49:00 Test Item Value Reference Range Interpretation [...] (test code = 2801) RAD, CHEST, 2 [id number] 22:26:00Reason for exam:->SHORTNESS OF BREATH FINAL REPORT [...] Edenilson Gutierrezort Verified Date/Time: 04/21/2020 22:26:38 POCT-GLUCOSE [id number] 15:36:00 Test Item Value Reference Range Interpretation Comments POC-GLUCOSE METER 133 mg/dL 70-110 H : TESTED A T [facility] 6720 (BEAKER) (test code = [facility], 1538) 27476: Mess Cook/Techni kush ID = [id number] for Wi lliams, Areiona POCT-GLUCOSE [id number] 12:38:00 Test Item Value Reference Range Interpretation Comments POC-GLUCOSE METER 100 mg/dL 70-110 : TESTED A T [facility] 6720 (BEAKER) (test code = [facility], 1538) 20947: Mess Cook/Techni kush ID = [id number] for Wi lliams, Areiona [id number] 09:28:00 Test Item Value Reference Range Interpretation Comments PARTIAL THROMBOPLASTIN TIME 67.8 seconds 22.5-36.0 H (BEAKER) (test code = 760) [id number] 07:14:00 Test Item Value Reference Range Interpretation Comments PARTIAL THROMBOPLASTIN TIME 146.9 seconds 22.5-36.0 H (BEAKER) (test code = 760) CBC W/PLT COUNT & AUTO [id number] 05:40:00 Test Item Value Reference Range Interpretation [...] (BEAKER) (test code = 2801) BASIC METABOLIC [id number] 05:24:00 Test Item Value Reference Range Interpretation [...] S NOT APPLICABLE FOR DIALYSIS PATIEN TS. Mess Cook ID - LORENZO [id number] TIME/[id number] 04:52:00 Test Item Value Reference Range Interpretation [...] H : TESTED A T [facility] 6720 ([facility]) (test code = [place], 1538) [address]: Mess Cook/Techni kush ID = [id number] for KATIA RAO [id number] 21:05:00 Test Item Value Reference Range Interpretation Comments PARTIAL THROMBOPLASTIN TIME 66.8 seconds 22.5-36.0 H (BEAKER) (test code = 760) [id number] 19:49:00 Test Item Value Reference Range Interpretation Comments PARTIAL THROMBOPLASTIN TIME > seconds 22.5-36.0 HH (BEAKER) (test code = 760) POCT-GLUCOSE [id number] 17:09:00 Test Item Value Reference Range Interpretation Comments POC-GLUCOSE METER 145 mg/dL 70-110 H : TESTED A T [facility] 6720 (BEAKER) (test code = [facility], 1538) 55644: Mess Cook/Techni kush ID = [id number] for Christina Chisholm POCT-GLUCOSE [id number] 12:10:00 Test Item Value Reference Range Interpretation Comments POC-GLUCOSE METER 113 mg/dL 70-110 H : TESTED A T [facility] 6720 ([facility]) (test code = [facility], 1538) 35697: Mess Cook/Techni kush ID = [id number] for Christina Chisholm [id number] 11:50:00 Test Item Value Reference Range Interpretation Comments PARTIAL THROMBOPLASTIN TIME 96.6 seconds 22.5-36.0 H (BEAKER) (test code = 760) POCT-GLUCOSE [id number] 08:28:00 Test Item Value Reference Range Interpretation Comments POC-GLUCOSE METER 150 mg/dL 70-110 H : TESTED A T [facility] 6720 (BEAKER) (test code = [facility], 1538) 688[address]: Mess Cook/Techni kush ID = [id number] for Christina Chisholm BASIC METABOLIC [id number] 06:15:00 Test Item Value Reference Range Interpretation [...] S NOT APPLICABLE FOR DIALYSIS PATIEN TS. Mess Cook ID - BSCBC W/PLT COUNT & AUTO [id number] 06:12:00 Test Item Value Reference Range Interpretation [...] 0-1 PERCENT (BEAKER) (test code = 2801) [id number] 05:43:00 Test Item Value Reference Range Interpretation Comments PARTIAL THROMBOPLASTIN TIME 61.8 seconds 22.5-36.0 H (BEAKER) (test code = 760) PROTHROMBIN [id number] 05:42:00 Test Item Value Reference Range Interpretation [...] 6720 (BEAKER) (test code = [facility] [place], 1538) 36639: Mess Cook/Techni kush ID = [id number] for AN BENITA ERNANDEZ [id number] 22:49:00 Test Item Value Reference Range Interpretation Comments PARTIAL THROMBOPLASTIN TIME 86.0 seconds 22.5-36.0 H (BEAKER) (test code = 760) [id number] 15:29:00 Test Item Value Reference Range Interpretation [...] INR is2.5-3.5 for patients wiht mechanical heart valves.[id number] 15:29:00 Test Item Value Reference Range Interpretation Comments PARTIAL THROMBOPLASTIN TIME 90.0 seconds 22.5-36.0 H (BEAKER) (test code = 760) BASIC METABOLIC [id number] 12:20:00 Test Item Value Reference Range Interpretation [...] S NOT APPLICABLE FOR DIALYSIS PATIEN TS. Mess Cook ID - SLIDELL FCBC W/PLT COUNT & AUTO [id number] 07:29:00 Test Item Value Reference Range Interpretation [...] 0-1 PERCENT (BEAKER) (test code = 2801) [id number] 07:20:00 Test Item Value Reference Range Interpretation Comments PARTIAL THROMBOPLASTIN TIME 61.2 seconds 22.5-36.0 H (BEAKER) (test code = 760) While on warfarin.BASIC METABOLIC [id number] 07:06:00 Test Item Value Reference Range Interpretation [...] S NOT APPLICABLE FOR DIALYSIS PATIEN TS. Mess Cook ID - ANTONIA FPROTHROMBIN TIME/[id number] 06:37:00 Test Item Value Reference Range Interpretation [...] for patients wiht mechanical heart valves.While on warfarin.[id number] 23:03:00 Test Item Value Reference Range Interpretation Comments PARTIAL THROMBOPLASTIN TIME 54.4 seconds 22.5-36.0 H (BEAKER) (test code = 760) POCT-GLUCOSE [id number] 22:30:00 Test Item Value Reference Range Interpretation Comments POC-GLUCOSE METER 96 mg/dL 70-110 : TESTED A T [facility] 6720 (BEAKER) (test code = [facility] [place], 1538) 86340: Mess Cook/Techni kush ID = [id number] for BENITA MASSEY POCT-GLUCOSE [id number] 15:59:00 Test Item Value Reference Range Interpretation Comments POC-GLUCOSE METER 133 mg/dL 70-110 H : TESTED A T [facility] 6720 (BEAKER) (test code = [facility], 1538) 588[address]: Mess Cook/Techni kush ID = [id number] for Raquel Raoa [id number] 15:38:00 Test Item Value Reference Range Interpretation Comments PARTIAL THROMBOPLASTIN TIME 88.8 seconds 22.5-36.0 H (BEAKER) (test code = 760) POCT-GLUCOSE [id number] 12:08:00 Test Item Value Reference Range Interpretation Comments POC-GLUCOSE METER 130 mg/dL 70-110 H : TESTED A T [facility] 6720 ([facility]) (test code = [facility], 1538) 10666: Mess Cook/Techni kush ID = [id number] for Raquel Raoa PROTHROMBIN TIME/[id number] 11:48:00 Test Item Value Reference Range Interpretation [...] INR is2.5-3.5 for patients wiht mechanical heart valves.[id number] 09:34:00 Test Item Value Reference Range Interpretation Comments PARTIAL THROMBOPLASTIN TIME 74.6 seconds 22.5-36.0 H (BEAKER) (test code = 760) CBC W/PLT COUNT & AUTO [id number] 01:34:00 Test Item Value Reference Range Interpretation [...] (BEAKER) (test code = 2801) BASIC METABOLIC [id number] 01:29:00 Test Item Value Reference Range Interpretation [...] S NOT APPLICABLE FOR DIALYSIS PATIEN TS. Mess Cook ID - PIAYA [id number] 01:13:00 Test Item Value Reference Range Interpretation Comments PARTIAL THROMBOPLASTIN TIME 56.4 seconds 22.5-36.0 H (BEAKER) (test code = 760) POCT-GLUCOSE [id number] 23:59:00 Test Item Value Reference Range Interpretation Comments POC-GLUCOSE METER 134 mg/dL 70-110 H : TESTED A T [facility] 6720 (BEAKER) (test code = [facility] [employer] [facility], 153) 749[address]: Mess Cook/Techni kush ID = [id number] for SCOOTER MIRZA [id number] 18:52:00 Test Item Value Reference Range Interpretation Comments PARTIAL THROMBOPLASTIN TIME 47.3 seconds 22.5-36.0 H (BEAKER) (test code = 760) [id number] 18:18:00 Test Item Value Reference Range Interpretation Comments PARTIAL THROMBOPLASTIN TIME > seconds 22.5-36.0 HH (BEAKER) (test code = 760) POCT-GLUCOSE [id number] 18:15:00 Test Item Value Reference Range Interpretation Comments POC-GLUCOSE METER 143 mg/dL 70-110 H : TESTED A T [facility] 6720 (BEAKER) (test code = [facility], 1538) 02845: Mess Cook/Techni kush ID = [id number] for DO BBINS, RANDI POCT-GLUCOSE [id number] 12:15:00 Test Item Value Reference Range Interpretation Comments POC-GLUCOSE METER 123 mg/dL 70-110 H : TESTED A T [facility] 6720 (BEAKER) (test code = [facility], 1538) 65712: Mess Cook/Techni kush ID = [id number] for DO BBINS, RANDI [id number] 11:28:00 Test Item Value Reference Range Interpretation Comments PARTIAL THROMBOPLASTIN TIME 57.3 seconds 22.5-36.0 H (BEAKER) (test code = 760) POCT-GLUCOSE [id number] 06:49:00 Test Item Value Reference Range Interpretation Comments POC-GLUCOSE METER 86 mg/dL 70-110 : TESTED A T [facility] 6720 (BEAKER) (test code = [facility], 1538) 76121: Mess Cook/Techni kush ID = [id number] for SCOOTER MAYA BASIC METABOLIC [id number] 06:19:00 Test Item Value Reference Range Interpretation [...] S NOT APPLICABLE FOR DIALYSIS PATIEN TS. Mess Cook ID - PIAYA LCBC W/PLT COUNT & AUTO [id number] 04:57:00 Test Item Value Reference Range Interpretation [...] PERCENT (BEAKER) (test code = 2801) POCT-GLUCOSE [id number] 02:25:00 Test Item Value Reference Range Interpretation Comments POC-GLUCOSE METER 69 mg/dL 70-110 L : TESTED A T [facility] 6720 (BEAKER) (test code = [facility], 1538) 94395: Mess Cook/Techni kush ID = [id number] for KEIT H, RADHA FL, FLUORO, NON-SPECIFIC, UP TO 1 [id number] 01:47:00Reason for exam:- >orif right femurFluoroscopic unit utilized for a procedure performed in the OR. No interpretation was requested. Refer to the operative report for findings. Refer to PACS for patient radiation dose information.[id number] 20:21:00 Test Item Value Reference Range Interpretation Comments PARTIAL THROMBOPLASTIN TIME 41.1 seconds 22.5-36.0 H (BEAKER) (test code = 760) 6 hours after starting heparin infusion and as indicated per sliding scalePOCT- GLUCOSE [id number] 17:57:00 Test Item Value Reference Range Interpretation Comments POC-GLUCOSE METER 82 mg/dL 70-110 : TESTED A T [facility] 6720 (BEAKER) (test code = [facility], 1538) 05198: Mess Cook/Techni kush ID = [id number] for ALMA DELIA PATHAK [id number] 17:14:00 Test Item Value Reference Range Interpretation Comments FERRITIN (BEAKER) (test code = 5182.19 ng/mL 5.00-275.00 H 361) Mess Cook ID - JOEL BEASLEY, TIBC, % SAT. (WITHOUT FERRITIN)2020-02-27 16:01:00 Test Item Value Reference Range Interpretation Comments IRON (BEAKER) (test code = 547) 125.0 ug/dL 40.0-160.0 TOTAL IRON BINDING CAPACITY 219 ug/dL 250-450 L (BEAKER) (test code = 769) IRON % SATURATION (2) (BEAKER) 57 % 20-55 H (test code = 2590) Mess Cook ID - JOEL [id number] 12:54:00 Test Item Value Reference Range Interpretation Comments PARTIAL THROMBOPLASTIN TIME 41.5 seconds 22.5-36.0 H (BEAKER) (test code = 760) Prior to initiating heparinPLATELET [id number] 12:51:00 Test Item Value Reference Range Interpretation Comments PLATELET COUNT (BEAKER) (test 116 K/CU MM 150-450 L code = 756) Mess Cook ID - [id number] clotSARS-COV2/RT-PCR ([facility])2020-02-27 12:46:00 Test Item Value Reference Range Interpretation Comments SARS-COV2/RT-PCR (test code = Negative Not Detected, Negative 1687634) SARS-COV-[address] [facility] (test code = 4795755) Negative result for this test determines that [...] 564(g) of the Act.Fact Sheet for Healthcare Providers:https://www.imbookin ([employer]).com/sites/default/files/product/documents/Fact_Shee p_WB_Jlnzrdzds_Odcs_DOHL-EiN-4.pdfFact Sheet for Healthcare Patients:https://www.imbookin ([employer]).[employer]/sites/default/files/product/ documents/Pzcw_Qrjcx_Fjmvqfzm_Plrm_EQBW-YrD-6.pdfPerforming Laboratory:[facility], [place] [address]ZLZG-PGLWQIO METER 2020-02-27 12:12:00 Test Item Value Reference Range Interpretation Comments POC-GLUCOSE METER 90 mg/dL 70-110 : TESTED A T [facility] 6720 (BEAKER) (test code = [facility], 1538) 87798: Mess Cook/Techni kush ID = [id number] for SELENA BIRCH HEPATITIS B SURFACE [id number] 11:32:00 Test Item Value Reference Range Interpretation Comments HEPATITIS B SURFACE ANTIGEN (2) Nonreactive Nonreactive (BEAKER) (test code = 2585) Specimen is considered negative for HBsAg.RAD, WRIST, 2 VIEWS, [id number] 09:19:00Reason for exam:->fall, immbolityFINAL REPORT TECHNIQUE: Frontal, oblique, and lateral views of the left wrist. INDICATION: Fall immobility. COMPARISON: None. FINDINGS:No acute fractures or dislocations.Joint spaces are within normal limits.There are atherosclerotic calcifications of the vessels. Surgical clipsproject over the distal radius.. IMPRESSION:No acute osseous abnormality. Signed: Bhavin Artis MDReport Verified Date/Time: 02/27/2020 09:19:08 Reading Location: [facility] C0[facility] CT Body ReadingRoom [id number] 08:30:00 Test Item Value Reference Range Interpretation Comments POTASSIUM (BEAKER) (test code = 5.0 meq/L 3.5-5.1 379) Mess Cook ID - AKSHAT LRAD, PELVIS, 1 OR 2 [id number] 07:23:00Reason for exam:->femoral neck fxFINAL REPORT RAD, [...] Lisa Verified Date/Time: 02/27/2020 07:23:52 Reading Location: [address] Neuro Reading Room RAD, HIP, 2 VIEWS, [id number] 07:23:00Reason for exam:- >femoral neck fractureFINAL REPORT [...] Lisa Verified Date/Time: 02/27/2020 07:23:52 Reading Location: [address] Neuro Reading Room POCT-GLUCOSE [id number] 06:26:00 Test Item Value Reference Range Interpretation Comments POC-GLUCOSE METER 72 mg/dL 70-110 : TESTED A T [facility] 6720 [facility] (test code = [facility], 1538) 47495: Mess Cook/Techni kush ID = [id number] for BRITNEY SCOOTER ESPINAL COMPREHENSIVE METABOLIC [id number] 02:44:00 Test Item Value Reference Range Interpretation [...] S NOT APPLICABLE FOR DIALYSIS PATIEN TS. Mess Cook ID - AKSHAT LPROTHROMBIN TIME/[id number] 02:03:00 Test Item Value Reference Range Interpretation [...] INR is2.5-3.5 for patients wiht mechanical heart valves.[id number] 01:56:00 Test Item Value Reference Range Interpretation Comments PHOSPHORUS (BEAKER) (test code = 7.3 mg/dL 2.3-4.7 H 604) Mess Cook ID - AKSHAT [id number] 01:56:00 Test Item Value Reference Range Interpretation Comments MAGNESIUM (BEAKER) (test code = 1.9 mg/dL 1.6-2.6 627) Mess Cook JOSE ODEN LCBC W/PLT COUNT & AUTO [id number] 01:33:00 Test Item Value Reference Range Interpretation [...] (test code = 2801) AFB CULTURE + [id number] 07:33:00 Test Item Value Reference Range Interpretation Comments CULTURE (BEAKER) (test No acid-fast bacilli code = 1095) isolated in 42 days AFB SMEAR (BEAKER) No acid fast bacilli (test code = 994) seen FUNGUS CULTURE + [id number] 17:26:00 Test Item Value Reference Range Interpretation Comments CULTURE (BEAKER) (test No fungus isolated in code = 1095) 28 days [facility]AR [facility] No fungi seen (test code = 1406) PROTHROMBIN [id number] 00:05:00 Test Item Value Reference Range Interpretation Comments PT PATIENT (test code = PTP) 18.2 SECONDS 9.3-12.9 H INTERNATIONAL NORMAL RATIO 1.57 INR Unit 0.8-1.2 H (test code = INR) POCT-GLUCOSE [id number] 13:35:00 Test Item Value Reference Range Interpretation Comments POC-GLUCOSE METER 116 mg/dL 70-110 H TESTED AT [place] [address] ([facility]) (test code = [facility] 1538) [address] POCT-GLUCOSE [id number] 08:54:00 Test Item Value Reference Range Interpretation Comments POC-GLUCOSE METER 99 mg/dL 70-110 TESTED AT [place] [address] ([facility]) (test code = [facility] [address] 1538) [id number] 06:34:00 Test Item Value Reference Range Interpretation Comments PARTIAL THROMBOPLASTIN TIME 46.7 seconds 22.5-36.0 H ([facility]) (test code = 760) While on warfarin.PROTHROMBIN TIME/[id number] 06:33:00 Test Item Value Reference Range Interpretation Comments PROTIME ([facility]) (test code = 26.5 seconds 11.7-14.7 H 759) INR ([facility]) (test code = 370) 2.6 <=5.9 [...] CORPUSCULAR HEMOGLOBIN CONC 30.8 GM/DL 32.3-36.5 L ([facility]) (test code = 752) RED CELL DISTRIBUTION WIDTH 17.9 % 11.6-14.4 H ([facility]) (test code = 412) PLATELET COUNT ([facility]) (test 148 K/CU MM 150-450 L code = 756) MEAN PLATELET VOLUME ([facility]) 9.2 fL 9.4-12.4 L (test code = 754) NUCLEATED RED BLOOD CELLS 1 /100 WBC 0-0 H ([facility]) (test code = 413) POCT-GLUCOSE [id number] 21:38:00 Test Item Value Reference Range Interpretation Comments POC-GLUCOSE METER 192 mg/dL 70-110 H TESTED AT [place] [address] ([facility]) (test code = [facility] 1538) [address] POCT-GLUCOSE [id number] 13:01:00 Test Item Value Reference Range Interpretation Comments POC-GLUCOSE METER 200 mg/dL 70-110 H TESTED AT [place] [address] ([facility]) (test code = [facility] 1538) [address] POCT-GLUCOSE [id number] 08:00:00 Test Item Value Reference Range Interpretation Comments POC-GLUCOSE METER 123 mg/dL 70-110 H TESTED AT [place] [address] ([facility]) ([facility] = [facility] 1538) [address] [id number] 06:40:00 Test Item Value Reference Range Interpretation Comments PARTIAL THROMBOPLASTIN TIME 83.1 seconds 22.5-36.0 H ([facility]) (test code = 760) [id number] 05:54:00 Test Item Value Reference Range Interpretation Comments PARTIAL THROMBOPLASTIN TIME > seconds 22.5-36.0 HH ([facility]) (test code = 760) PROTHROMBIN [id number] 05:30:00 Test Item Value Reference Range Interpretation Comments PROTIME ([facility]) (test code = 24.1 seconds 11.7-14.7 H 759) INR ([facility]) (test code = 370) 2.3 <=5.9 [...] (BEAKER) (test code = 413) BASIC METABOLIC [id number] 05:10:00 Test Item Value Reference Range Interpretation [...] APPLICABLE FOR DIALYSIS PATIEN TS. OCCULT BLOOD, [id number] 23:46:00 Test Item Value Reference Range Interpretation Comments FECAL OCCULT BLOOD ([facility]) (test Negative Negative code = 618) POCT-GLUCOSE [id number] 22:52:00 Test Item Value Reference Range Interpretation Comments POC-GLUCOSE METER 192 mg/dL 70-110 H TESTED AT [place] [address] ([facility]) (test code = [facility] 1538) [address] POCT-GLUCOSE [id number] 17:11:00 Test Item Value Reference Range Interpretation Comments POC-GLUCOSE METER 149 mg/dL 70-110 H TESTED AT [place] [address] ([facility]) (test code = [facility] [employer] [facility] 1538) [address] PROTHROMBIN [id number] 13:00:00 Test Item Value Reference Range Interpretation Comments PROTIME (J[facility]) (test code = 19.9 seconds 11.7-14.7 H 759) INR (JRAR[facility]) (test code = 370) 1.8 <=5.9 RECOMMENDED COUMADIN/WARFARIN INR THERAPY RANGESSTANDARD DOSE: 2.0 - 3.0 Includes: PROPHYLAXIS forvenous thrombosis, systemic embolization; TREATMENT for venous thrombosis and/or pulmonary embolus.HIGH RISK: Target INR is 2.5-3.5 for patients with mechanical heart valves.While on warfarin.POCT-GLUCOSE METER 2019-01-04 12:14:00 Test Item Value Reference Range Interpretation Comments POC-GLUCOSE METER 134 mg/dL 70-110 H TESTED AT [place] [address] ([facility]) (test code = [facility] [employer] [facility] 1538) [address] RAD, CHEST, 1 VIEW, NON [id number] 08:02:00Reason for exam:->Post opShould this be performed [...] EDENILSON BLOOM M.D. on 01/04/2019 08:02 AMPOCT-GLUCOSE [id number] 07:42:00 Test Item Value Reference Range Interpretation Comments POC-GLUCOSE METER 98 mg/dL 70-[address] [facility] 6720 (BEAKER) (test code = [place] [address] 1538) BASIC METABOLIC [id number] 07:28:00 Test Item Value Reference Range Interpretation [...] 0-0 H (BEAKER) (test code = 413) [id number] 06:08:00 Test Item Value Reference Range Interpretation Comments PARTIAL THROMBOPLASTIN TIME 70.6 seconds 22.5-36.0 H (BEAKER) (test code = 760) [id number] 23:32:00 Test Item Value Reference Range Interpretation Comments PARTIAL THROMBOPLASTIN TIME 77.2 seconds 22.5-36.0 H (BEAKER) (test code = 760) POCT-GLUCOSE [id number] 21:55:00 Test Item Value Reference Range Interpretation Comments POC-GLUCOSE METER 150 mg/dL 70-[address] [facility] 6720 ([facility]) (test code = [place] 1538) [address] [id number] 18:25:00 Test Item Value Reference Range Interpretation Comments PARTIAL THROMBOPLASTIN TIME 71.2 seconds 22.5-36.0 H (BEAKER) (test code = 760) POCT-GLUCOSE [id number] 13:45:00 Test Item Value Reference Range Interpretation Comments POC-GLUCOSE METER 375 mg/dL 70-110 H Notified R Toy PÉREZ/TESTED ([facility]) (test code = AT [facility] 67[address] [facility] 1538) [facility] [address] [id number] 10:26:00 Test Item Value Reference Range Interpretation Comments PARTIAL THROMBOPLASTIN TIME 94.0 seconds 22.5-36.0 H ([facility]) (test code = 760) While on warfarin.PROTHROMBIN TIME/[id number] 10:24:00 Test Item Value Reference Range Interpretation [...] 6720 (JARR[facility]) (test code = [facility] 1538) [address] RAD, CHEST, 1 VIEW, NON [id number] 08:19:00Reason for exam:->Post opShould this be performed [...] Lisa Verified Date/Time: 01/03/2019 08:19:51 Reading Location: [facility] C013 Neuro Reading Room [id number] 03:31:00 Test Item Value Reference Range Interpretation Comments PARTIAL THROMBOPLASTIN TIME 64.2 seconds 22.5-36.0 H (BEAKER) (test code = 760) BASIC METABOLIC [id number] 03:21:00 Test Item Value Reference Range Interpretation [...] (BEAKER) (test code = 412) PLATELET COUNT ([facility]) (test 167 K/CU MM 150-450 code = 756) MEAN PLATELET VOLUME ([facility]) 8.7 fL 9.4-12.4 L (test code = 754) NUCLEATED RED BLOOD CELLS 1 /100 WBC 0-0 H ([facility]) (test code = 413) POCT-GLUCOSE [id number] 22:54:00 Test Item Value Reference Range Interpretation Comments POC-GLUCOSE METER 206 mg/dL 70-110 H TESTED AT [place] [address] ([facility]) (test code = [facility] 1538) [address] [id number] 19:36:00 Test Item Value Reference Range Interpretation Comments PARTIAL THROMBOPLASTIN TIME 79.3 seconds 22.5-36.0 H ([facility]) (test code = 760) POCT-GLUCOSE [id number] 17:59:00 Test Item Value Reference Range Interpretation Comments POC-GLUCOSE METER 186 mg/dL 70-110 H TESTED AT [place] [address] ([facility]) (test code = [facility] 1538) [address] POCT-GLUCOSE [id number] 13:54:00 Test Item Value Reference Range Interpretation Comments POC-GLUCOSE METER 139 mg/dL 70-110 H TESTED AT [place] [address] ([facility]) (test code = [facility] 1538) [address] POCT-GLUCOSE [id number] 13:05:00 Test Item Value Reference Range Interpretation Comments POC-GLUCOSE METER 163 mg/dL 70-110 H TESTED AT [place] [address] ([facility]) (test code = [facility] 1538) [address] [id number] 12:49:00 Test Item Value Reference Range Interpretation Comments PARTIAL THROMBOPLASTIN TIME 64.9 seconds 22.5-36.0 H ([facility]) (test code = 760) OCCULT BLOOD, [id number] 12:31:00 Test Item Value Reference Range Interpretation Comments FECAL OCCULT BLOOD ([facility]) (test Negative Negative code = 618) RAD, CHEST, 1 VIEW, NON [id number] 10:37:00Reason for exam:->Post opShould this be performed [...] ation: ARTURO [facility] Radiology Reading Room POCT-GLUCOSE [id number] 08:07:00 Test Item Value Reference Range Interpretation Comments POC-GLUCOSE METER 107 mg/dL 70-[address] [facility] 67[address] ([facility]) (test code = FOSTER Paul [facility] 1538) [id number] 04:48:00 Test Item Value Reference Range Interpretation Comments PARTIAL THROMBOPLASTIN TIME 106.0 seconds 22.5-36.0 [facility] (test code = [facility]60) While on warfarin.BASIC METABOLIC [id number] 04:48:00 Test Item Value Reference Range Interpretation [...] NOT APPLICABLE FOR DIALYSIS PATIEN TS. PROTHROMBIN TIME/[id number] 04:39:00 Test Item Value Reference Range Interpretation [...] 0-0 (BEAKER) (test code = 413) POCT-GLUCOSE [id number] 22:17:00 Test Item Value Reference Range Interpretation Comments POC-GLUCOSE METER 117 mg/dL 70-[address] [facility] 67[address] ([facility]) (test code = FOSTER Paul [facility] 1538) [id number] RAD, CHEST, 1 VIEW, NON [id number] 19:40:00Reason for exam:->Post opShould this be performed [...] Bloom Verified Date/Time: 01/01/2019 19:40:01 Reading Location: [address] Consult Reading Room POCT-GLUCOSE [id number] 18:22:00 Test Item Value Reference Range Interpretation Comments POC-GLUCOSE METER 159 mg/dL 70-[address] [facility] 6720 ([facility]) (test code = [facility] 1538) [address] POCT-GLUCOSE [id number] 14:12:00 Test Item Value Reference Range Interpretation Comments POC-GLUCOSE METER 135 mg/dL 70-[address] [facility] 6720 ([facility]) (test code = [facility] 1538) [address] HEPATITIS B SURFACE [id number] 11:52:00 Test Item Value Reference Range Interpretation Comments HEPATITIS B SURFACE ANTIGEN (2) Nonreactive Nonreactive ([facility]) (test code = 2585) POCT-GLUCOSE [id number] 08:40:00 Test Item Value Reference Range Interpretation Comments POC-GLUCOSE METER 85 mg/dL 70-[address] [facility] 6720 ([facility]) (test code = [facility] H[facility]to [facility] [address] 1538) BASIC METABOLIC [id number] 04:17:00 Test Item Value Reference Range Interpretation [...] S NOT APPLICABLE FOR DIALYSIS PATIEN TS. [id number] 03:40:00 Test Item Value Reference Range Interpretation Comments PARTIAL THROMBOPLASTIN TIME 84.1 seconds 22.5-36.0 H (BEAKER) (test code = 760) While on warfarin.PROTHROMBIN TIME/[id number] 03:39:00 Test Item Value Reference Range Interpretation [...] PLATELET COUNT ([facility]) (test 186 K/CU MM 150-450 code = 756) MEAN PLATELET VOLUME ([facility]) 9.0 fL 9.4-12.4 L (test code = 754) NUCLEATED RED BLOOD CELLS 0 /100 WBC 0-0 ([facility]) (test code = 413) POCT-GLUCOSE [id number] 22:08:00 Test Item Value Reference Range Interpretation Comments POC-GLUCOSE METER 194 mg/dL 70-110 H TESTED AT [place] [address] ([facility]) (test code = FOSTER BRANDON 1538) [address] POCT-GLUCOSE [id number] 22:03:00 Test Item Value Reference Range Interpretation Comments POC-GLUCOSE METER 203 mg/dL 70-110 H TESTED AT [place] [address] ([facility]) (test code = [place]ER [place] 1538) [address] POCT-GLUCOSE [id number] 21:42:00 Test Item Value Reference Range Interpretation Comments POC-GLUCOSE METER 42 mg/dL 70-110 L TESTED AT [place] [address] ([facility]) (test code = [place] [address] 1538) [id number] 21:35:00 Test Item Value Reference Range Interpretation Comments PARTIAL THROMBOPLASTIN TIME 80.4 seconds 22.5-36.0 H ([facility]) (test code = 760) POCT-GLUCOSE [id number] 18:03:00 Test Item Value Reference Range Interpretation Comments POC-GLUCOSE METER 144 mg/dL 70-110 H TESTED AT [place] [address] (BEAKER) (test code = FOSTER VU [place] 1538) [address] TISSUE [id number] 16:33:00Surgical Pathology Report Case: [id number] Authorizing Provider: ZacharyEnmanuel Collected: 12/26/2018 1537 MD Liban OrderingLocation: [address] Received: 12/29/2018 0814 Service Pathologist: Brigida [...] stains. GMSImmunohistochemistry technical testing was performed at [facility], Pathology Laboratory where it was developed [...] toperform high complexity clinical laboratory testing.CPT CODE: [id number] electronically signed by Brigida Parks MD on [...] ARE NEGATIVE Signing Pathologist Direct Phone Line: [phone] signed by Brigida Parks MD on 12/30/2018 at 6:43 PMPreliminary result electronically signed by Brigida Parks MD on 12/29/2018 at 4:54 [id number] X 2; 69935; 70400; 71094 X 2Upper endoscopy, biopsyPreoperative and postoperative diagnosis: [...] AND CMVImmunohistochemistry technical testing was performed at [facility], Pathology Laboratory where it was developed [...] qualified toperform high complexity clinical laboratory testing.POCT-GLUCOSE [id number] 13:57:00 Test Item Value Reference Range Interpretation Comments POC-GLUCOSE METER 178 mg/dL 70-[address] [facility] 6720 ([facility]) (test code = MARIA GOSMAN Paul [facility] 1538) [address] [id number] 12:54:00 Test Item Value Reference Range Interpretation Comments PARTIAL THROMBOPLASTIN TIME 69.4 seconds 22.5-36.0 H ([facility]) (test code = 760) RAD, CHEST, 1 VIEW, NON [id number] 09:26:00Reason for exam:->Post opShould this be performed [...] MDReport Verified Date/Time: 12/31/2018 09:26:31 Reading Location: [facility] Radiology Reading Room POCT-GLUCOSE [id number] 09:01:00 Test Item Value Reference Range Interpretation Comments POC-GLUCOSE METER 162 mg/dL 70-[address] [facility] 6720 (BEAKER) (test code = [place] 1538) [address] BASIC METABOLIC [id number] 06:50:00 Test Item Value Reference Range Interpretation [...] NOT APPLICABLE FOR DIALYSIS PATIEN TS. PROTHROMBIN TIME/[id number] 06:38:00 Test Item Value Reference Range Interpretation Comments PROTIME (BEAKER) (test code = 19.1 seconds 11.7-14.7 H 759) INR (BEAKER) (test code = 370) 1.7 <=5.9 RECOMMENDED COUMADIN/WARFARIN INR THERAPY RANGESSTANDARD DOSE: 2.0 - 3.0 Includes: PROPHYLAXIS forvenous thrombosis, systemic embolization; TREATMENT for venous thrombosis and/or pulmonary embolus.HIGH RISK: Target INR is 2.5-3.5 for patients with mechanical heart valves.While on warfarin.[id number] 06:37:00 Test Item Value Reference Range Interpretation [...] 0-0 (BEAKER) (test code = 413) POCT-GLUCOSE [id number] 00:45:00 Test Item Value Reference Range Interpretation Comments POC-GLUCOSE METER 124 mg/dL 70-[address] [facility] 6720 (BEAKER) (test code = [place] 1538) [address] [id number] 19:14:00 Test Item Value Reference Range Interpretation Comments PARTIAL THROMBOPLASTIN TIME 57.8 seconds 22.5-36.0 H (BEAKER) (test code = 760) POCT-GLUCOSE [id number] 17:53:00 Test Item Value Reference Range Interpretation Comments POC-GLUCOSE METER 133 mg/dL 70-110 H [facility] [place] [address] [facility] (test code = [facility] 1538) [address] POCT-GLUCOSE [id number] 13:19:00 Test Item Value Reference Range Interpretation Comments POC-GLUCOSE METER 147 mg/dL 70-110 H [facility] AT [place] [address] [facility] (test code = [facility] 1538) [address] [id number] 12:43:00 Test Item Value Reference Range Interpretation Comments PARTIAL THROMBOPLASTIN TIME 57.0 seconds 22.5-36.0 H (BEAKER) (test code = 760) [id number] 10:17:00 Test Item Value Reference Range Interpretation Comments PARTIAL THROMBOPLASTIN TIME 134.5 seconds 22.5-36.0 H (BEAKER) (test code = 760) POCT-GLUCOSE [id number] 07:43:00 Test Item Value Reference Range Interpretation Comments POC-GLUCOSE METER 107 mg/dL 70-110 TESTED AT [place] [address] [facility] (test code = MARIA GME [place] [facility] 1538) [address] BASIC METABOLIC [id number] 06:46:00 Test Item Value Reference Range Interpretation [...] PATIEN TS. RAD, CHEST, 1 VIEW, NON [id number] 06:25:00Reason for exam:->Post opShould this be performed [...] Lisa Verified Date/Time: 12/30/2018 06:25:51 Reading Location: [address] Neuro Reading Room PROTHROMBIN TIME/[id number] 06:06:00 Test Item Value Reference Range Interpretation [...] (BEAKER) (test code = 412) PLATELET COUNT ([facility]) (test 139 K/CU MM 150-450 L code = 756) MEAN PLATELET VOLUME (AKER) 9.1 fL 9.4-12.4 L (test code = 754) NUCLEATED RED BLOOD CELLS 0 /100 WBC 0-0 ([facility]) (test code = 413) POCT-GLUCOSE [id number] 22:19:00 Test Item Value Reference Range Interpretation Comments POC-GLUCOSE METER 179 mg/dL 70-110 H TESTED AT [place] [address] ([facility]) (test code = [place] 1538) [address] POCT-GLUCOSE [id number] 17:39:00 Test Item Value Reference Range Interpretation Comments POC-GLUCOSE METER 181 mg/dL 70-110 H TESTED AT [place] [address] ([facility]) (test code = [place] 1538) [address] POCT-GLUCOSE [id number] 13:14:00 Test Item Value Reference Range Interpretation Comments POC-GLUCOSE METER 102 mg/dL 70-110 TESTED AT [place] [address] ([facility]) (test code = [facility] 1538) [address] RAD, CHEST, 1 VIEW, NON [id number] 08:56:00Reason for exam:->Post opShould this be performed [...] Bloomort Verified Date/Time: 12/29/2018 08:56:32 Reading Location: [facility] Radiology Reading Room Electronically signed by: EDENILSON BLOOM M.D.on 12/29/2018 08:56 AMPOCT-GLUCOSE [id number] 07:53:00 Test Item Value Reference Range Interpretation Comments POC-GLUCOSE METER 135 mg/dL 70-[address] [facility] 6720 (BEAKER) (test code = [place] 1538) [address] [id number] 06:45:00 Test Item Value Reference Range Interpretation Comments PARTIAL THROMBOPLASTIN TIME 83.5 seconds 22.5-36.0 H (BEAKER) (test code = 760) While on warfarin.PROTHROMBIN TIME/[id number] 06:44:00 Test Item Value Reference Range Interpretation [...] WBC 0-0 (BEAKER) (test code = 413) [id number] 00:01:00 Test Item Value Reference Range Interpretation Comments PARTIAL THROMBOPLASTIN TIME 78.5 seconds 22.5-36.0 H (BEAKER) (test code = 760) POCT-GLUCOSE [id number] 21:26:00 Test Item Value Reference Range Interpretation Comments POC-GLUCOSE METER 139 mg/dL 70-[address] [facility] 6720 (BEAKER) (test code = FOSTER Paul [facility] 1538) [address] POCT-GLUCOSE [id number] 17:58:00 Test Item Value Reference Range Interpretation Comments POC-GLUCOSE METER 146 mg/dL 70-[address] [facility] 6720 (JARROD) (test code = F[facility]ER Paul [facility] 1538) [address] [id number] 17:16:00 Test Item Value Reference Range Interpretation Comments PARTIAL THROMBOPLASTIN TIME 34.5 seconds 22.5-36.0 (JARROD) (test code = 760) Prior to initiating heparinPOCT-GLUCOSE [id number] 12:54:00 Test Item Value Reference Range Interpretation Comments POC-GLUCOSE METER 133 mg/dL 70-[address] [facility] 6720 ([facility]) (test code = [facility]ER Paul [facility] 1538) [address] RAD, CHEST, 1 VIEW, NON [id number] 08:06:00Reason for exam:->Post opShould this be performed at the bedside?->YesFINAL REPORT Chest one view. Clinical history: Post op Comparison: 12/27/2018 Discussion: A frontal chest is provided. Cardiomediastinal contours are unchanged. Lines and tubesare in stable position. Unchanged right-sided pleural-parenchymal opacities. Left lung is grossly clear. Vessels do not appear engorged. No pneumothorax. Signed: Dionicio Chery Verified Date/Time: 12/28/2018 08:06:07 Reading Location: [address] Neuro Reading Room BASIC METABOLIC [id number] 06:52:00 Test Item Value Reference Range Interpretation [...] NOT APPLICABLE FOR DIALYSIS PATIEN TS. PROTHROMBIN TIME/[id number] 06:31:00 Test Item Value Reference Range Interpretation [...] WBC 0-0 ([facility]) (test code = 413) POCT-GLUCOSE [id number] 21:41:00 Test Item Value Reference Range Interpretation Comments POC-GLUCOSE METER 163 mg/dL 70-[address] [facility] 6720 ([facility]) (test code = FOSTER Paul [place] 1538) [address] POCT-GLUCOSE [id number] 17:23:00 Test Item Value Reference Range Interpretation Comments POC-GLUCOSE METER 119 mg/dL 70-[address] [facility] 6720 ([facility]) (test code = FOSTER Paul [place] 1538) [address] RAD, CHEST, 1 VIEW, NON [id number] 14:49:00Reason for exam:->Post opShould this be performed [...] Romeort Verified Date/Time: 12/27/2018 14:49:48 Reading Location: [address] Ortho Consult Reading Room ANG, NON-TUNNELED CATH >5 Y.O. [id number] 14:17:00Reason for exam:->Central line placement, poor access, [...] guide wire was advanced centrally. A 7 Grenadian 20 cm triple lumen catheter was advanced [...] Sykes Verified Date/Time: 12/27/2018 14:17:02 Reading Location: [facility] P048 Angio Body Reading Room [id number] 13:44:00 Test Item Value Reference Range Interpretation Comments PARTIAL THROMBOPLASTIN TIME 44.3 seconds 22.5-36.0 H ([facility]) (test code = 760) Prior to initiating heparinPOCT-GLUCOSE [id number] 13:27:00 Test Item Value Reference Range Interpretation Comments POC-GLUCOSE METER 127 mg/dL 70-110 H TESTED AT [place] [address] ([facility]) (test code = [facility] 1538) [address] POCT-GLUCOSE [id number] 08:58:00 Test Item Value Reference Range Interpretation Comments POC-GLUCOSE METER 79 mg/dL 70-110 TESTED AT [place] [id number] ([facility]) (test code = [facility] [address] 1538) BASIC METABOLIC [id number] 07:09:00 Test Item Value Reference Range Interpretation [...] NOT APPLICABLE FOR DIALYSIS PATIEN TS. PROTHROMBIN [id number] 06:52:00 Test Item Value Reference Range Interpretation [...] CORPUSCULAR HEMOGLOBIN CONC 30.7 GM/DL 32.3-36.5 L ([facility]) (test code = 752) RED CELL DISTRIBUTION WIDTH 15.0 % 11.6-14.4 H ([facility]) (test code = 412) PLATELET COUNT ([facility]) (test code 90 K/CU MM 150-450 L = 756) MEAN PLATELET VOLUME ([facility]) 9.1 fL 9.4-12.4 L (test code = 754) NUCLEATED RED BLOOD CELLS ([facility]) 0 /100 WBC 0-0 (test code = 413) POCT-GLUCOSE [id number] 23:54:00 Test Item Value Reference Range Interpretation Comments POC-GLUCOSE METER 73 mg/dL 70-110 TESTED AT [place] [address] ([facility]) (test code = FOSTER Paul [facility] [address] 1538) POCT-GLUCOSE [id number] 16:02:00 Test Item Value Reference Range Interpretation Comments POC-GLUCOSE METER 108 mg/dL 70-110 TESTED AT [place] [address] ([facility]) (test code = F[facility]ER Paul [facility] 1538) [address] POCT-GLUCOSE [id number] 15:24:00 Test Item Value Reference Range Interpretation Comments POC-GLUCOSE METER 74 mg/dL 70-110 TESTED AT [place] [address] ([facility]) ([facility] = [facility] [address] 1538) POCT-GLUCOSE [id number] 10:29:00 Test Item Value Reference Range Interpretation Comments POC-GLUCOSE METER 88 mg/dL 70-110 TESTED AT [place] [address] ([facility]) (test code = [facility] [address] 1538) RAD, CHEST, 1 VIEW, NON [id number] 07:33:00Reason for exam:->Post opShould this be performed [...] Mejiaeport Verified Date/Time: 12/26/2018 07:33:38 Reading Location: [facility] Radiology Reading Room BASIC METABOLIC [id number] 06:42:00 Test Item Value Reference Range Interpretation [...] 0-0 H (test code = 413) PROTHROMBIN TIME/[id number] 05:44:00 Test Item Value Reference Range Interpretation Comments PROTIME (BEAKER) (test code = 24.4 seconds 11.7-14.7 H 759) INR ([facility]) (test code = 370) 2.2 <=5.9 RECOMMENDED COUMADIN/WARFARIN INR THERAPY RANGESSTANDARD DOSE: 2.0 - 3.0 Includes: PROPHYLAXIS forvenous thrombosis, systemic embolization; TREATMENT for venous thrombosis and/or pulmonary embolus.HIGH RISK: Target INR is 2.5-3.5 for patients with mechanical heart valves.POCT-GLUCOSE [id number] 00:06:00 Test Item Value Reference Range Interpretation Comments POC-GLUCOSE METER 88 mg/dL 70-110 TESTED AT [place] [address] ([facility]) (test code = FOSTER Paul [facility] [address] 1538) POCT-GLUCOSE [id number] 19:06:00 Test Item Value Reference Range Interpretation Comments POC-GLUCOSE METER 121 mg/dL 70-110 H TESTED AT [place] [id number] ([facility]) (test code = [facility] Humberto [facility] 1538) [address] PROTHROMBIN TIME/[id number] 16:10:00 Test Item Value Reference Range Interpretation Comments [facility]OTIME [facility] (test code = 30.1 seconds 11.7-14.7 H 759) INR [facility] (test code = 370) 2.9 <=5.9 RECOMMENDED COUMADIN/WARFARIN INR THERAPY RANGESSTANDARD DOSE: 2.0 - 3.0 Includes: PROPHYLAXIS forvenous thrombosis, systemic embolization; TREATMENT for venous thrombosis and/or pulmonary embolus.HIGH RISK: Target INR is 2.5-3.5 for patients with mechanical heart valves.BASIC METABOLIC [id number] 16:10:00 Test Item Value Reference Range Interpretation [...] S NOT APPLICABLE FOR DIALYSIS PATIEN TS. [id number] 16:09:00 Test Item Value Reference Range Interpretation [...] 0-0 H (test code = 413) POCT-GLUCOSE [id number] 08:03:00 Test Item Value Reference Range Interpretation Comments POC-GLUCOSE METER 89 mg/dL 70-[address] [facility] 6720 ([facility]) (test code = [place] [address] 1538) RAD, CHEST, 1 VIEW, NON [id number] 07:46:00Reason for exam:->Post opShould this be performed at the bedside?->YesFINAL REPORT Chest one view. Clinical history: Post op Comparison: 12/24/2018 Discussion: A frontal chest is provided. Cardiomediastinal contours are unchanged. Stable appearance of pleural-parenchymal opacity at the right mid to lower lung. There is a tiny right apical pneumothorax, unchanged. Probable trace left effusion. Signed: Dionicio Chery Verified Date/Time: 07:46:01 Reading Location: [facility] Radiology Reading Room RAD, ABDOMEN/KUB, 1 VIEW [id number] 07:25:00Reason for exam:->abdominal distentionShould this be performed [...] Chery Verified Date/Time: 12/25/2018 07:25:40 Reading Location: [facility] Radiology Reading Room POCT-GLUCOSE [id number] 22:06:00 Test Item Value Reference Range Interpretation Comments POC-GLUCOSE METER 102 mg/dL 70-110 TESTED AT [place] [address] ([facility]) (test code = FOSTER Paul [place] 1538) [address] POCT-GLUCOSE [id number] 18:44:00 Test Item Value Reference Range Interpretation Comments POC-GLUCOSE METER 100 mg/dL 70-110 TESTED AT [place] [address] ([facility]) (test code = [facility] Humberto [place] 1538) [address] POCT-GLUCOSE [id number] 14:54:00 Test Item Value Reference Range Interpretation Comments POC-GLUCOSE METER 103 mg/dL 70-110 TESTED AT [place] [address] ([facility]) (test code = [facility] H[place]to [facility] 1538) [address] [id number] 08:07:00 Test Item Value Reference Range Interpretation Comments FERRITIN ([facility]) (test code = 2044 ng/mL 5-275 H 361) POCT-GLUCOSE [id number] 07:57:00 Test Item Value Reference Range Interpretation Comments POC-GLUCOSE METER 76 mg/dL 70-110 TESTED AT [place] [address] ([facility]) (test code = [facility] H[place]to [facility] [address] 1538) RAD, CHEST, 1 VIEW, NON [id number] 07:57:00Reason for exam:->Post opShould this be performed [...] MDReport Verified Date/Time: 12/24/2018 07:57:06 Reading Location: [facility] Radiology Reading Room CBC (HEMOGRAM [...] H (test code = 413) BASIC METABOLIC [id number] 07:14:00 Test Item Value Reference Range Interpretation [...] S NOT APPLICABLE FOR DIALYSIS PATIEN TS. [id number] 07:08:00 Test Item Value Reference Range Interpretation [...] % 20-55 (test code = 2590) PROTHROMBIN TIME/[id number] 07:05:00 Test Item Value Reference Range Interpretation Comments PROTIME (BEAKER) (test code = 38.7 seconds 11.7-14.7 H 759) INR (BEAKER) (test code = 370) 3.9 <=5.9 RECOMMENDED COUMADIN/WARFARIN INR THERAPY RANGESSTANDARD DOSE: 2.0 - 3.0 Includes: PROPHYLAXIS forvenous thrombosis, systemic embolization; TREATMENT for venous thrombosis and/or pulmonary embolus.HIGH RISK: Target INR is 2.5-3.5 for patients with mechanical heart valves.POCT-GLUCOSE [id number] 00:26:00 Test Item Value Reference Range Interpretation Comments POC-GLUCOSE METER 86 mg/dL 70-110 TESTED AT [place] [address] [facility] (test code = [facility] [address] 1538) POCT-GLUCOSE [id number] 00:26:00 Test Item Value Reference Range Interpretation Comments POC-GLUCOSE METER 137 mg/dL 70-110 H TESTED AT [place] [address] ([facility] (test code = [facility] 1538) [address] POCT-GLUCOSE [id number] 16:07:00 Test Item Value Reference Range Interpretation Comments POC-GLUCOSE METER 72 mg/dL 70-110 TESTED AT [place] [address] ([facility]) (test code = [facility] [address] 1538) POCT-GLUCOSE [id number] 16:07:00 Test Item Value Reference Range Interpretation Comments POC-GLUCOSE METER 61 mg/dL 70-[address] [facility] 6720 (BEAKER) (test code = F[facility]ER Paul [facility] [address] 1538) POCT-GLUCOSE [id number] 11:27:00 Test Item Value Reference Range Interpretation Comments POC-GLUCOSE METER 82 mg/dL 70-[address] [facility] 6720 (BEAKER) (test code = FOSTER Paul [facility] [address] 1538) POCT-GLUCOSE [id number] 10:32:00 Test Item Value Reference Range Interpretation Comments POC-GLUCOSE METER 43 mg/dL 70-[address] [facility] 6720 (BEAKER) (test code = FOSTER Paul [facility] [address] 1538) BASIC METABOLIC [id number] 07:28:00 Test Item Value Reference Range Interpretation [...] S NOT APPLICABLE FOR DIALYSIS PATIEN TS. [id number] 07:24:00 Test Item Value Reference Range Interpretation Comments MAGNESIUM (BEAKER) 2.0 mg/dL 1.6-2.6 Specimen slightly (test code = 627) hemolyzed [id number] 07:24:00 Test Item Value Reference Range Interpretation Comments PHOSPHORUS (BEAKER) 4.4 mg/dL 2.3-4.7 Specimen slightly (test code = 604) hemolyzed PROTHROMBIN TIME/[id number] 07:20:00 Test Item Value Reference Range Interpretation [...] = 413) RAD, CHEST, 1 VIEW, NON [id number] 04:22:00Reason for exam:->Post opShould this be performed [...] MDReport Verified Date/Time: 12/23/2018 04:22:43 Reading Location: [address] [place] Body Reading Room POCT-GLUCOSE [id number] 03:01:00 Test Item Value Reference Range Interpretation Comments POC-GLUCOSE METER 85 mg/dL 70-[address] [facility] [address] ([facility]) (test code = [facility] [id number]) BASIC METABOLIC [id number] 18:52:00 Test Item Value Reference Range Interpretation [...] H (BEAKER) (test code = 413) ANAEROBIC [id number] 17:00:00 Test Item Value Reference Range Interpretation Comments CULTURE (BEAKER) (test No anaerobes isolated code = 1095) RAD, CHEST, 1 VIEW, NON [id number] 07:44:00Reason for exam:->Post opShould this be performed [...] Arteaga Verified Date/Time: 12/22/2018 07:44:12 Reading Location: [facility] Radiology Reading Room PROTHROMBIN TIME/[id number] 04:31:00 Test Item Value Reference Range Interpretation Comments PROTIME ([facility]) (test code = 63.0 seconds 11.7-14.7 H 759) INR ([facility]) (test code = 370) 7.6 <=5.9 RECOMMENDED COUMADIN/WARFARIN INR THERAPY RANGESSTANDARD DOSE: 2.0 - 3.0 Includes: PROPHYLAXIS forvenous thrombosis, systemic embolization; TREATMENT for venous thrombosis and/or pulmonary embolus.HIGH RISK: Target INR is 2.5-3.5 for patients with mechanical heart valves.While on warfarin.POCT-GLUCOSE METER 2018-12-21 22:29:00 Test Item Value Reference Range Interpretation Comments POC-GLUCOSE METER 141 mg/dL 70-110 H TESTED AT [place] [address] ([facility]) (test code = FOSTER Paul [facility] 1538) [address] POCT-GLUCOSE [id number] 13:22:00 Test Item Value Reference Range Interpretation Comments POC-GLUCOSE METER 100 mg/dL 70-110 TESTED AT [place] [address] ([facility]) (test code = MARIA GME Humberto [facility] 1538) [address] RAD, CHEST, 1 VIEW, NON [id number] 08:01:00Reason for exam:->Post opShould this be performed [...] MDReport Verified Date/Time: 12/21/2018 08:01:46 Reading Location: [facility] C013V Neuro Reading Room PROTHROMBIN [id number] 05:30:00 Test Item Value Reference Range Interpretation Comments [facility] (test code = 39.1 seconds 11.7-14.7 H 759) INR ([facility]) (test code = 370) 4.0 <=5.9 RECOMMENDED COUMADIN/WARFARIN INR THERAPY RANGESSTANDARD DOSE: 2.0 - 3.0 Includes: PROPHYLAXIS forvenous thrombosis, systemic embolization; TREATMENT for venous thrombosis and/or pulmonary embolus.HIGH RISK: Target INR is 2.5-3.5 for patients with mechanical heart valves.While on warfarin.POCT-GLUCOSE METER 2018-12-20 22:10:00 Test Item Value Reference Range Interpretation Comments POC-GLUCOSE METER 98 mg/dL 70-110 TESTED AT [place] [address] ([facility]) (test code = FOSTER Paul [facility] [address] 1538) POCT-GLUCOSE [id number] 17:40:00 Test Item Value Reference Range Interpretation Comments POC-GLUCOSE METER 91 mg/dL 70-110 TESTED AT [place] [address] ([facility]) (test code = F[place]ER Paul [facility] [address] 1538) POCT-GLUCOSE [id number] 13:13:00 Test Item Value Reference Range Interpretation Comments POC-GLUCOSE METER 73 mg/dL 70-110 TESTED AT [place] [address] ([facility]) (test code = [place] Paul [facility] [address] 1538) SURGICALLY OBTAINED CULTURE + GRAM [id number] 08:41:00 Test Item Value Reference Range Interpretation Comments CULTURE ([facility]) (test No growth code = 1095) GRAM STAIN RESULT No White blood cells (BEAKER) (test code = seen 1123) GRAM STAIN RESULT No organisms seen (AKER) (test code = 67502) RAD, CHEST, 1 VIEW, NON [id number] 08:20:00Reason for exam:->Post opShould this be performed [...] MDReport Verified Date/Time: 12/20/2018 08:20:58 Reading Location: [address] Neuro Reading Room BASIC METABOLIC [id number] 08:09:00 Test Item Value Reference Range Interpretation [...] S NOT APPLICABLE FOR DIALYSIS PATIEN TS. [id number] 08:00:00 Test Item Value Reference Range Interpretation Comments PHOSPHORUS (BEAKER) (test code = 4.5 mg/dL 2.3-4.7 604) CALCIUM, [id number] 07:20:00 Test Item Value Reference Range Interpretation Comments CALCIUM IONIZED (BEAKER) (test 1.04 mmol/L 1.12-1.27 L code = 698) PH, BLOOD (BEAKER) (test code = 7.35 1810) PROTHROMBIN [id number] 07:04:00 Test Item Value Reference Range Interpretation [...] 0-0 (BEAKER) (test code = 413) POCT-GLUCOSE [id number] 22:00:00 Test Item Value Reference Range Interpretation Comments POC-GLUCOSE METER 188 mg/dL 70-[address] [facility] 67 ([facility]) (test code = [place] 1538) [address] TISSUE [id number] 18:15:00Surgical Pathology Report Case: [id number] Authorizing Provider: Moiz Vargas, Collected: 12/17/2018 0950 Ordering Location: [facility] Received: 12/17/2018 1129 PERIOPERATIVE SERVICES Pathologist: Kwan Perla MD Specimen: Pleural, Right, RIGHT PLEURAL PEEL PLEURA, RIGHT, DECORTICATION- MILD CHRONIC INFLAMMATION AND GRANULATION TISSUE- ORGANIZING BLOOD CLOTS- NO MALIGNANT CELLS IDENTIFIED Signing Pathologist Direct Phone Line: [phone] signed by Kwan Perla MD on 12/19/2018 at 6:15 PMCorrelation with microbiology cultures is recommended.[id number] effusion and other conditions classified elsewhereRight pleural peelThe specimen is received in a formalin-filled container labeled with the patient's information and labeled "right pleural peel" and consists of multiple fragments of porter-red, dusky, firm tissue measuring 6 x 5 x 0.4 cm in aggregate. Md Senior Research Scientist sections are submitted in A1-A3. CG/ew Performed.POCT-GLUCOSE [id number] 17:11:00 Test Item Value Reference Range Interpretation Comments POC-GLUCOSE METER 126 mg/dL 70-[address] [facility] 6720 ([facility]) (test code = FOSTER Paul [facility] 1538) [address] POCT-GLUCOSE [id number] 12:57:00 Test Item Value Reference Range Interpretation Comments POC-GLUCOSE METER 143 mg/dL 70-[address] [facility] 6720 ([facility]) (test code = F[place]ER Paul [facility] 1538) [address] POCT-GLUCOSE [id number] 07:27:00 Test Item Value Reference Range Interpretation Comments POC-GLUCOSE METER 141 mg/dL 70-110 H TESTED AT [place] [address] ([facility]) (test code = FOSTER Paul [facility] 1538) [address] CALCIUM, [id number] 06:29:00 Test Item Value Reference Range Interpretation Comments CALCIUM IONIZED ([facility]) (test 1.00 mmol/L 1.12-1.27 L code = 698) PH, BLOOD (BEAKER) (test code = 7.45 1810) RAD, CHEST, 1 VIEW, NON [id number] 04:54:00Reason for exam:->Post opShould this be performed [...] [place]loreport Verified Date/Time: 2018 04:54:49 Reading Location: [place] [address] Body Reading Room BASIC METABOLIC [id number] 04:19:00 Test Item Value Reference Range Interpretation [...] S NOT APPLICABLE FOR DIALYSIS PATIEN TS. [id number] 04:16:00 Test Item Value Reference Range Interpretation Comments PHOSPHORUS (BEAKER) (test code = 3.4 mg/dL 2.3-4.7 604) PROTHROMBIN [id number] 04:06:00 Test Item Value Reference Range Interpretation [...] WBC 0-0 ([facility]) (test code = 413) POCT-GLUCOSE [id number] 22:11:00 Test Item Value Reference Range Interpretation Comments POC-GLUCOSE METER 149 mg/dL 70-110 H TESTED AT [place] [address] ([facility]) (test code = [facility] 1538) [address] POCT-GLUCOSE [id number] 17:52:00 Test Item Value Reference Range Interpretation Comments POC-GLUCOSE METER 122 mg/dL 70-110 H TESTED AT [place] [address] ([facility]) (test code = [facility] 1538) [address] POCT-GLUCOSE [id number] 14:26:00 Test Item Value Reference Range Interpretation Comments POC-GLUCOSE METER 98 mg/dL 70-110 TESTED AT [place] [address] ([facility]) (test code = [facility] [address] 1538) HEMOGLOBIN AND [id number] 12:47:00 Test Item Value Reference Range Interpretation Comments HEMOGLOBIN ([facility]) (test code = 9.2 GM/DL 13.7-17.5 L 410) HEMATOCRIT ([facility]) (test code = 28.3 % 40.1-51.0 L 411) POCT-GLUCOSE [id number] 09:38:00 Test Item Value Reference Range Interpretation Comments POC-GLUCOSE METER 73 mg/dL 70-110 TESTED AT [place] [address] ([facility]) (test code = [facility] [address] 1538) PROTEIN ELECTROPHORESIS, [id number] 09:21:00 Test Item Value Reference Range Interpretation [...] of chronic inflammation. No monoclonal bands detected. [id number] Amanda De Jesus MD (BEAKER) (test code = (electronic signature) 4796) PROTEIN TOTAL SERUM, 7.5 gm/dL 6.0-8.3 SPEP (BEAKER) (test code = 2660) RAD, CHEST, 1 VIEW, NON [id number] 06:47:00Reason for exam:->Post opShould this be performed [...] Taylorort Verified Date/Time: 12/18/2018 06:47:21 Reading Location: [facility] C013Y CT Body Reading Room [id number] 06:20:00 Test Item Value Reference Range Interpretation Comments MAGNESIUM (BEAKER) (test code = 2.2 mg/dL 1.6-2.6 627) CALCIUM, [id number] 06:00:00 Test Item Value Reference Range Interpretation Comments CALCIUM IONIZED (BEAKER) (test 1.09 mmol/L 1.12-1.27 L code = 698) PH, BLOOD (BEAKER) (test code = 7.34 1810) BASIC METABOLIC [id number] 05:07:00 Test Item Value Reference Range Interpretation [...] S NOT APPLICABLE FOR DIALYSIS PATIEN TS. [id number] 04:54:00 Test Item Value Reference Range Interpretation Comments PHOSPHORUS (BEAKER) (test code = 6.3 mg/dL 2.3-4.7 H 604) HEPATIC FUNCTION [id number] 04:54:00 Test Item Value Reference Range Interpretation [...] (test code = 23 U/L 6-55 347) [id number] 04:51:00 Test Item Value Reference Range Interpretation Comments PARTIAL THROMBOPLASTIN TIME 38.6 seconds 22.5-36.0 H (BEAKER) (test code = 760) PROTHROMBIN [id number] 04:50:00 Test Item Value Reference Range Interpretation Comments PROTIME (BEAKER) (test code = 16.0 seconds 11.7-14.7 H 759) INR (BEAKER) (test code = 370) 1.3 <=5.9 RECOMMENDED COUMADIN/WARFARIN INR THERAPY RANGESSTANDARD DOSE: 2.0 - 3.0 Includes: PROPHYLAXIS forvenous thrombosis, systemic embolization; TREATMENT for venous thrombosis and/or pulmonary embolus.HIGH RISK: Target INR is 2.5-3.5 for patients with mechanical heart valves.[id number] 04:50:00 Test Item Value Reference Range Interpretation Comments FIBRINOGEN LEVEL (BEAKER) (test 494 mg/dl 225-434 H code = 658) PLATELET [id number] 04:38:00 Test Item Value Reference Range Interpretation [...] WBC 0-0 (BEAKER) (test code = 413) [id number] 18:48:00 Test Item Value Reference Range Interpretation Comments MAGNESIUM (BEAKER) (test code = 2.4 mg/dL 1.6-2.6 627) POCT-GLUCOSE [id number] 18:42:00 Test Item Value Reference Range Interpretation Comments POC-GLUCOSE METER 121 mg/dL 70-[address] [facility] 6720 (BEAKER) (test code = [place] 1538) [address] HEMOGLOBIN AND [id number] 18:37:00 Test Item Value Reference Range Interpretation Comments HEMOGLOBIN (BEAKER) (test code = 10.0 GM/DL 13.7-17.5 L 410) HEMATOCRIT (BEAKER) (test code = 31.3 % 40.1-51.0 L 411) RAD, CHEST, 1 VIEW, NON [id number] 13:28:00Reason for exam:->post opShould this be performed [...] MDReport Verified Date/Time: 12/17/2018 13:28:23 Reading Location: [facility] Reading [facility] METABOLIC [id number] 13:03:00 Test Item Value Reference Range Interpretation [...] S NOT APPLICABLE FOR DIALYSIS PATIEN TS. [id number] 12:53:00 Test Item Value Reference Range Interpretation Comments PHOSPHORUS (BEAKER) (test code = 4.3 mg/dL 2.3-4.7 604) [id number] 12:53:00 Test Item Value Reference Range Interpretation Comments MAGNESIUM (BEAKER) (test code = 1.5 mg/dL 1.6-2.6 L 627) LACTIC ACID, [id number] 12:50:00 Test Item Value Reference Range Interpretation Comments LACTATE BLOOD ARTERIAL (2) 0.9 mmol/L 0.5-2.2 (BEAKER) (test code = 2874) CBC W/PLT COUNT & AUTO [id number] 12:47:00 Test Item Value Reference Range Interpretation [...] PERCENT (BEAKER) (test code = 2801) CALCIUM, [id number] 12:26:00 Test Item Value Reference Range Interpretation Comments CALCIUM IONIZED (BEAKER) (test 1.07 mmol/L 1.12-1.27 L code = 698) PH, BLOOD (BEAKER) (test code = 7.38 1810) BLOOD GAS, [id number] 12:26:00 Test Item Value Reference Range Interpretation [...] (test code = 1819) 40.0 % CALCIUM, [id number] 10:25:00 Test Item Value Reference Range Interpretation Comments CALCIUM IONIZED (BEAKER) (test 1.09 mmol/L 1.12-1.27 L code = 698) PH, BLOOD (BEAKER) (test code = 7.45 1810) BLOOD GAS, [id number] 10:22:00 Test Item Value Reference Range Interpretation [...] code = 1819) 96.0 % SODIUM NA-STAT [id number] 10:22:00 Test Item Value Reference Range Interpretation Comments SODIUM (BEAKER) (test code = 381) 133 meq/L 135-148 L GLUCOSE-STAT [id number] 10:22:00 Test Item Value Reference Range Interpretation Comments GLUCOSE RANDOM (BEAKER) (test code 116 mg/dL 70-110 H = 652) HGB/HCT (H&H) - STAT [id number] 10:22:00 Test Item Value Reference Range Interpretation Comments HEMOGLOBIN (BEAKER) (test code = 8.9 g/dL 13.0-16.8 L 410) HEMATOCRIT (BEAKER) (test code = 26.0 % 40.0-50.0 L 411) POTASSIUM-STAT [id number] 10:20:00 Test Item Value Reference Range Interpretation Comments POTASSIUM (BEAKER) (test code = 4.0 meq/L 3.6-5.5 379) HEMOGLOBIN [id number] 09:33:00 Test Item Value Reference Range Interpretation Comments HEMOGLOBIN A1C (BEAKER) (test code = 5.9 % 4.3-6.1 368) BLOOD GAS, [id number] 09:27:00 Test Item Value Reference Range Interpretation [...] code = 1819) 100.0 % SODIUM NA-STAT [id number] 09:27:00 Test Item Value Reference Range Interpretation Comments SODIUM (BEAKER) (test code = 381) 133 meq/L 135-148 L HGB/HCT (H&H) - STAT [id number] 09:27:00 Test Item Value Reference Range Interpretation Comments HEMOGLOBIN (BEAKER) (test code = 9.4 g/dL 13.0-16.8 L 410) HEMATOCRIT (BEAKER) (test code = 28.0 % 40.0-50.0 L 411) GLUCOSE-STAT [id number] 09:26:00 Test Item Value Reference Range Interpretation Comments GLUCOSE RANDOM (BEAKER) (test code = 97 mg/dL 70-110 652) POTASSIUM-STAT [id number] 09:26:00 Test Item Value Reference Range Interpretation Comments POTASSIUM (BEAKER) (test code = 3.9 meq/L 3.6-5.5 379) CALCIUM, [id number] 09:26:00 Test Item Value Reference Range Interpretation Comments CALCIUM IONIZED (BEAKER) (test 1.17 mmol/L 1.12-1.27 code = 698) PH, BLOOD (BEAKER) (test code = 7.44 1810) BLOOD GAS, [id number] 08:32:00 Test Item Value Reference Range Interpretation [...] code = 1819) 96.0 % SODIUM NA-STAT [id number] 08:32:00 Test Item Value Reference Range Interpretation Comments SODIUM (BEAKER) (test code = 381) 133 meq/L 135-148 L GLUCOSE-STAT [id number] 08:32:00 Test Item Value Reference Range Interpretation Comments GLUCOSE RANDOM (BEAKER) (test code 113 mg/dL 70-110 H = 652) HGB/HCT (H&H) - STAT [id number] 08:32:00 Test Item Value Reference Range Interpretation Comments HEMOGLOBIN (BEAKER) (test code = 9.9 g/dL 13.0-16.8 L 410) HEMATOCRIT (BEAKER) (test code = 29.0 % 40.0-50.0 L 411) CALCIUM, [id number] 08:31:00 Test Item Value Reference Range Interpretation Comments CALCIUM IONIZED (BEAKER) (test 1.05 mmol/L 1.12-1.27 L code = 698) PH, BLOOD (BEAKER) (test code = 7.49 1810) POTASSIUM-STAT [id number] 08:29:00 Test Item Value Reference Range Interpretation Comments POTASSIUM (BEAKER) (test code = 3.6 meq/L 3.6-5.5 379) POCT-GLUCOSE [id number] 06:20:00 Test Item Value Reference Range Interpretation Comments POC-GLUCOSE METER 99 mg/dL 70-[address] [facility] 6720 ([facility]) ([facility] [address] 1538) [id number] 05:05:00 Test Item Value Reference Range Interpretation Comments PARTIAL THROMBOPLASTIN TIME 75.6 seconds 22.5-36.0 H ([facility]) (test code = 760) LIPID [id number] 05:04:00 Test Item Value Reference Range Interpretation Comments TRIGLYCERIDES ([facility]) (test code = 53 mg/dL 540) CHOLESTEROL ([facility]) (test code = 122 mg/dL 631) HDL CHOLESTEROL ([facility]) (test code 58 mg/dL = 976) LDL CHOLESTEROL CALCULATED ([facility]) 53 mg/dL (test code = 633) Triglyceride Reference Range: Low Risk <150 Borderline 150-199 High Risk 200-499 Very High Risk >=500Cholesterol Reference Range: Low Risk <200 Borderline 200-239 High Risk >240HDL Cholesterol Reference Range: Low Risk >=60 High Risk <40LDL Cholesterol Reference Range: Optimal <100 Near Optimal 100-129 Borderline 130-159 High 160-189 Very High >=190PROTHROMBIN [id number] 05:03:00 Test Item Value Reference Range Interpretation Comments PROTIME ([facility]) (test code = 15.4 seconds 11.7-14.7 H 759) INR ([facility]) (test code = 370) 1.2 <=5.9 RECOMMENDED COUMADIN/WARFARIN INR THERAPY RANGESSTANDARD DOSE: 2.0 - 3.0 Includes: PROPHYLAXIS forvenous thrombosis, systemic embolization; TREATMENT for venous thrombosis and/or pulmonary embolus.HIGH RISK: Target INR is 2.5-3.5 for patients with mechanical heart valves.POCT-GLUCOSE [id number] 21:17:00 Test Item Value Reference Range Interpretation Comments POC-GLUCOSE METER 223 mg/dL 70-[address] [facility] 6720 ([facility]) (test code = [facility] 1538) [address] COMPREHENSIVE METABOLIC [id number] 18:57:00 Test Item Value Reference Range Interpretation Comments TOTAL PROTEIN 7.8 gm/dL 6.0-8.3 ([facility]) (test code = 770) ALBUMIN (BEAKER) [...] S NOT APPLICABLE FOR DIALYSIS PATIEN TS. [id number] 18:46:00 Test Item Value Reference Range Interpretation Comments MAGNESIUM (BEAKER) (test code = 1.8 mg/dL 1.6-2.6 627) CBC W/PLT COUNT & AUTO [id number] 18:10:00 Test Item Value Reference Range Interpretation [...] 0-1 PERCENT (BEAKER) (test code = 2800) POCT-GLUCOSE [id number] 17:34:00 Test Item Value Reference Range Interpretation Comments POC-GLUCOSE METER 169 mg/dL 70-[address] [facility] 6720 (BEAKER) (test code = [place] 1538) [address] HEPARIN [id number] 13:40:00 Test Item Value Reference Range Interpretation Comments HEPARIN ANTIBODY (BEAKER) (test code Negative Negative = 646) HEPARIN ANTIBODY OD ([facility]) (test 0.105 <0.400 code = 6559) 4T TOTAL SCORE ([facility]) (test code = 4 3062) Probability of HIT based on scoring system: 6-8 = High probability; 4-5 = intermediate probability;0-3 = low probabilityPOCT-GLUCOSE [id number] 12:51:00 Test Item Value Reference Range Interpretation Comments POC-GLUCOSE METER 66 mg/dL 70-110 L Notified Humberto Yeager MD/TESTED AT ([facility]) (test code = [place] [address] JOSE ANTONIO 1538) [facility] 7703 0 POCT-GLUCOSE [id number] 07:54:00 Test Item Value Reference Range Interpretation Comments POC-GLUCOSE METER 75 mg/dL 70-110 TESTED AT [place] [address] ([facility]) (test code = [facility] Humberto [facility] [address] 1538) [id number] 04:21:00 Test Item Value Reference Range Interpretation Comments PROTIME ([facility]) (test code = 15.4 seconds 11.7-14.7 H 759) INR ([facility]) (test code = 370) 1.2 <=5.9 PARTIAL THROMBOPLASTIN TIME 74.0 seconds 22.5-36.0 H ([facility]) (test code = 760) RECOMMENDED COUMADIN/WARFARIN INR THERAPY RANGESSTANDARD DOSE: 2.0 - 3.0 Includes: PROPHYLAXIS forvenous thrombosis, systemic embolization; TREATMENT for venous thrombosis and/or pulmonary embolus.HIGH RISK: Target INR is 2.5-3.5 for patients with mechanical heart valves.[id number] 04:20:00 Test Item Value Reference Range Interpretation Comments FIBRINOGEN LEVEL ([facility]) (test 525 mg/dl 225-434 H code = 658) POCT-GLUCOSE [id number] 21:25:00 Test Item Value Reference Range Interpretation Comments POC-GLUCOSE METER 129 mg/dL 70-110 H TESTED AT [place] [address] ([facility]) (test code = [place]ER [place] [facility] 1538) [address] [id number] 18:23:00 Test Item Value Reference Range Interpretation Comments PARTIAL THROMBOPLASTIN TIME 72.0 seconds 22.5-36.0 H ([facility]) (test code = 760) POCT-GLUCOSE [id number] 16:20:00 Test Item Value Reference Range Interpretation Comments POC-GLUCOSE METER 142 mg/dL 70-110 H TESTED AT [place] [address] ([facility]) (test code = [place] [facility] 1538) [address] POCT-GLUCOSE [id number] 13:05:00 Test Item Value Reference Range Interpretation Comments POC-GLUCOSE METER 86 mg/dL 70-110 TESTED AT [place] [address] ([facility]) (test code = [facility] Humberto [facility] [address] 1538) [id number] 11:19:00 Test Item Value Reference Range Interpretation Comments PARTIAL THROMBOPLASTIN TIME 72.3 seconds 22.5-36.0 H ([facility]) (test code = 760) POCT-GLUCOSE [id number] 07:56:00 Test Item Value Reference Range Interpretation Comments POC-GLUCOSE METER 87 mg/dL 70-110 TESTED AT [place] [address] ([facility]) (test code = [facility] Humberto [facility] [address] 1538) [id number] 03:13:00 Test Item Value Reference Range Interpretation Comments PARTIAL THROMBOPLASTIN TIME 97.1 seconds 22.5-36.0 H ([facility]) (test code = 760) PROTHROMBIN [id number] 03:11:00 Test Item Value Reference Range Interpretation Comments PROTIME ([facility]) (test code = 16.5 seconds 11.7-14.7 H 759) INR ([facility]) (test code = 370) 1.3 <=5.9 RECOMMENDED COUMADIN/WARFARIN INR THERAPY RANGESSTANDARD DOSE: 2.0 - 3.0 Includes: PROPHYLAXIS forvenous thrombosis, systemic embolization; TREATMENT for venous thrombosis and/or pulmonary embolus.HIGH RISK: Target INR is 2.5-3.5 for patients with mechanical heart valves.CBC (HEMOGRAM ONLY)2018-12-15 02:42:00 Test Item Value Reference Range Interpretation Comments WHITE BLOOD CELL COUNT ([facility]) 6.9 K/ L 3.5-10.5 (test code = 775) RED BLOOD CELL COUNT ([facility]) 3.13 M/ L 4.63-6.08 L (test code = 761) HEMOGLOBIN ([facility]) (test code = 10.6 GM/DL 13.7-17.5 [...] WBC 0-0 (test code = 413) POCT-GLUCOSE [id number] 21:26:00 Test Item Value Reference Range Interpretation Comments POC-GLUCOSE METER 121 mg/dL 70-110 H TESTED AT [place] [id number] ([facility]) (test code = [facility] 1538) [id number] 19:05:00 Test Item Value Reference Range Interpretation Comments PARTIAL THROMBOPLASTIN TIME 64.0 seconds 22.5-36.0 H ([facility]) (test code = 760) POCT-GLUCOSE [id number] 17:24:00 Test Item Value Reference Range Interpretation Comments POC-GLUCOSE METER 131 mg/dL 70-110 H TESTED AT [place] [id number] ([facility] [facility]) (test code = [place] 1538) [address] [id number] 13:32:00 Test Item Value Reference Range Interpretation Comments PARTIAL THROMBOPLASTIN TIME 81.4 seconds 22.5-36.0 H ([facility]) (test code = 760) POCT-GLUCOSE [id number] 12:32:00 Test Item Value Reference Range Interpretation Comments POC-GLUCOSE METER 102 mg/dL 70-110 TESTED AT [place] [address] ([facility]) (test code = [place] 1538) [address] POCT-GLUCOSE [id number] 07:07:00 Test Item Value Reference Range Interpretation Comments POC-GLUCOSE METER 113 mg/dL 70-[address] [facility] 67 ([facility] (test code = [facility] 1538) [address] [id number] 05:47:00 Test Item Value Reference Range Interpretation Comments PARTIAL THROMBOPLASTIN TIME 91.8 seconds 22.5-36.0 H (BEAKER) (test code = 760) POCT-GLUCOSE [id number] 21:27:00 Test Item Value Reference Range Interpretation Comments POC-GLUCOSE METER 90 mg/dL 70-110 TESTED AT [place] [address] ([facility]) (test code = [facility] [address] 1538) POCT-GLUCOSE [id number] 17:46:00 Test Item Value Reference Range Interpretation Comments POC-GLUCOSE METER 175 mg/dL 70-110 H TESTED AT [place] [address] ([facility]) (test code = [facility] 1538) [address] POCT-GLUCOSE [id number] 17:30:00 Test Item Value Reference Range Interpretation Comments POC-GLUCOSE METER 84 mg/dL 70-110 TESTED AT [place] [address] ([facility] (test code = [facility] [address] 1538) [id number] 13:20:00 Test Item Value Reference Range Interpretation Comments PARTIAL THROMBOPLASTIN TIME 68.4 seconds 22.5-36.0 H (BEAKER) (test code = 760) BASIC METABOLIC [id number] 10:36:00 Test Item Value Reference Range Interpretation [...] mg/dL 8.4-10.2 (test code = 697) EGFR [facility] (test 11 mL/min/1.73 ESTIMA JAYLA GFR IS code = 1092) sq m NOT ACCURATE CREATININE CLEARANCE IN PREDICTING GLOMERULAR FILTRATION RATE . ESTIMATED GFR I S NOT APPLICABLE FOR DIALYSIS PATIEN TS. POCT-GLUCOSE [id number] 07:43:00 Test Item Value Reference Range Interpretation Comments POC-GLUCOSE METER 84 mg/dL 70-[address] [facility] 6720 ([facility]) (test code = [place] [address] 1538) [id number] 06:52:00 Test Item Value Reference Range Interpretation Comments PARTIAL THROMBOPLASTIN TIME 76.5 seconds 22.5-36.0 H ([facility]) (test code = 760) PROTHROMBIN [id number] 06:51:00 Test Item Value Reference Range Interpretation Comments PROTIME ([facility]) (test code = 16.5 seconds 11.7-14.7 H 759) INR ([facility]) (test code = 370) 1.3 <=5.9 [...] 0-1 PERCENT (BEAKER) (test code = 2801) [id number] 00:11:00 Test Item Value Reference Range Interpretation Comments PARTIAL THROMBOPLASTIN TIME 59.7 seconds 22.5-36.0 H (BEAKER) (test code = 760) POCT-GLUCOSE [id number] 21:33:00 Test Item Value Reference Range Interpretation Comments POC-GLUCOSE METER 113 mg/dL 70-[address] [facility] 67 ([facility]) (test code = FOSTER [place] 1538) [address] POCT-GLUCOSE [id number] 18:08:00 Test Item Value Reference Range Interpretation Comments POC-GLUCOSE METER 128 mg/dL 70-[address] [facility] 6720 ([facility]) (test code = FOSTER [place] 1538) [address] [id number] 16:51:00 Test Item Value Reference Range Interpretation Comments PARTIAL THROMBOPLASTIN TIME 71.6 seconds 22.5-36.0 H (BEAKER) (test code = 760) POCT-GLUCOSE [id number] 12:39:00 Test Item Value Reference Range Interpretation Comments POC-GLUCOSE METER 124 mg/dL 70-[address] [facility] 6720 (BEAKER) (test code = [facility] 1538) [address] [id number] 09:07:00 Test Item Value Reference Range Interpretation Comments PARTIAL THROMBOPLASTIN TIME 96.6 seconds 22.5-36.0 H (BEAKER) (test code = 760) POCT-GLUCOSE [id number] 07:48:00 Test Item Value Reference Range Interpretation Comments POC-GLUCOSE METER 105 mg/dL 70-[address] [facility] 6720 (BEAKER) (test code = [facility] 1538) [address] BASIC METABOLIC [id number] 01:54:00 Test Item Value Reference Range Interpretation [...] S NOT APPLICABLE FOR DIALYSIS PATIEN TS. [id number] 01:37:00 Test Item Value Reference Range Interpretation Comments PARTIAL THROMBOPLASTIN TIME 53.4 seconds 22.5-36.0 H (BEAKER) (test code = 760) PROTHROMBIN [id number] 01:36:00 Test Item Value Reference Range Interpretation [...] PERCENT (BEAKER) (test code = 2801) POCT-GLUCOSE [id number] 21:57:00 Test Item Value Reference Range Interpretation Comments POC-GLUCOSE METER 165 mg/dL 70-110 H TESTED AT [place] [address] ([facility]) (test code = FOSTER Paul [facility] 1538) [address] [id number] 18:46:00 Test Item Value Reference Range Interpretation Comments PARTIAL THROMBOPLASTIN TIME 39.0 seconds 22.5-36.0 H ([facility]) (test code = 760) POCT-GLUCOSE [id number] 17:51:00 Test Item Value Reference Range Interpretation Comments POC-GLUCOSE METER 157 mg/dL 70-110 H TESTED AT [place] [address] ([facility]) (test code = F[facility]ER Paul [facility] 1538) [address] POCT-GLUCOSE [id number] 17:09:00 Test Item Value Reference Range Interpretation Comments POC-GLUCOSE METER 162 mg/dL 70-110 H TESTED AT [place] [address] ([facility]) (test code = F[place]ER [place] [facility] 1538) [address] [id number] 16:07:00 Test Item Value Reference Range Interpretation Comments PARTIAL THROMBOPLASTIN TIME 117.0 seconds 22.5-36.0 H ([facility]) (test code = 760) POCT-GLUCOSE [id number] 13:28:00 Test Item Value Reference Range Interpretation Comments POC-GLUCOSE METER 88 mg/dL 70-110 TESTED AT [place] [address] ([facility]) (test code = [place] [address] 1538) [id number] 09:17:00 Test Item Value Reference Range Interpretation Comments PARTIAL THROMBOPLASTIN TIME 71.7 seconds 22.5-36.0 H ([facility]) (test code = 760) POCT-GLUCOSE [id number] 08:07:00 Test Item Value Reference Range Interpretation Comments POC-GLUCOSE METER 137 mg/dL 70-[address] [facility] 6720 ([facility]) (test code = F[place]ER Paul [facility] 1538) [address] [id number] 02:27:00 Test Item Value Reference Range Interpretation Comments PARTIAL THROMBOPLASTIN TIME 62.4 seconds 22.5-36.0 H ([facility]) (test code = 760) PROTHROMBIN TIME/[id number] 02:26:00 Test Item Value Reference Range Interpretation Comments PROTIME ([facility]) (test code = 20.0 seconds 11.7-14.7 H 759) INR ([facility]) (test code = 370) 1.7 <=5.9 RECOMMENDED COUMADIN/WARFARIN INR THERAPY RANGESSTANDARD DOSE: 2.0 - 3.0 Includes: PROPHYLAXIS forvenous thrombosis, systemic embolization; TREATMENT for venous thrombosis and/or pulmonary embolus.HIGH RISK: Target INR is 2.5-3.5 for patients with mechanical heart valves.BASIC METABOLIC [id number] 02:02:00 Test Item Value Reference Range Interpretation [...] PATIEN TS. CBC W/PLT COUNT & AUTO [id number] 01:42:00 Test Item Value Reference Range Interpretation [...] IMMATURE GRANULOCYTES-RELATIVE 2 % 0-1 H PERCENT ([facility]) (test code = 2801) POCT-GLUCOSE [id number] 21:12:00 Test Item Value Reference Range Interpretation Comments POC-GLUCOSE METER 199 mg/dL 70-110 H TESTED AT [place] [address] ([facility]) (test code = [facility] 1538) [address] POCT-GLUCOSE [id number] 17:39:00 Test Item Value Reference Range Interpretation Comments POC-GLUCOSE METER 145 mg/dL 70-110 H TESTED AT [place] [address] ([facility]) (test code = [facility] 1538) [address] [id number] 17:33:00 Test Item Value Reference Range Interpretation Comments PARTIAL THROMBOPLASTIN TIME 47.3 seconds 22.5-36.0 H ([facility]) (test code = 760) POCT-GLUCOSE [id number] 12:53:00 Test Item Value Reference Range Interpretation Comments POC-GLUCOSE METER 203 mg/dL 70-110 H TESTED AT [place] [address] ([facility]) (test code = [facility] 1538) [address] POCT-GLUCOSE [id number] 08:28:00 Test Item Value Reference Range Interpretation Comments POC-GLUCOSE METER 98 mg/dL 70-110 TESTED AT [place] [address] ([facility]) (test code = [facility] [address] 1538) BASIC METABOLIC [id number] 05:52:00 Test Item Value Reference Range Interpretation [...] NOT APPLICABLE FOR DIALYSIS PATIEN TS. PROTHROMBIN [id number] 05:51:00 Test Item Value Reference Range Interpretation [...] PERCENT (BEAKER) (test code = 2801) POCT-GLUCOSE [id number] 20:54:00 Test Item Value Reference Range Interpretation Comments POC-GLUCOSE METER 126 mg/dL 70-110 H TESTED AT [place] [address] ([facility]) ([facility] = [facility] 1538) [address] POCT-GLUCOSE [id number] 18:47:00 Test Item Value Reference Range Interpretation Comments POC-GLUCOSE METER 70 mg/dL 70-110 TESTED AT [place] [address] ([facility]) (test code = [facility] [address] 1538) POCT-GLUCOSE [id number] 13:25:00 Test Item Value Reference Range Interpretation Comments POC-GLUCOSE METER 120 mg/dL 70-110 H TESTED AT [place] [address] ([facility]) (test code = [facility] [place] 1538) [address] POCT-GLUCOSE [id number] 09:32:00 Test Item Value Reference Range Interpretation Comments POC-GLUCOSE METER 104 mg/dL 70-[address] [facility] 6720 (BEAKER) (test code = [place] 1538) [address] BASIC METABOLIC [id number] 05:59:00 Test Item Value Reference Range Interpretation [...] NOT APPLICABLE FOR DIALYSIS PATIEN TS. PROTHROMBIN [id number] 05:20:00 Test Item Value Reference Range Interpretation [...] PERCENT (BEAKER) (test code = 2801) POCT-GLUCOSE [id number] 21:14:00 Test Item Value Reference Range Interpretation Comments POC-GLUCOSE METER 200 mg/dL 70-[address] [facility] 6720 (BEAKER) (test code = FOSTER [place] 1538) [address] POCT-GLUCOSE [id number] 17:34:00 Test Item Value Reference Range Interpretation Comments POC-GLUCOSE METER 143 mg/dL 70-[address] [facility] 67 (BEAKER) (test code = F[place]ER Paul [facility] 1538) [address] POCT-GLUCOSE [id number] 12:04:00 Test Item Value Reference Range Interpretation Comments POC-GLUCOSE METER 160 mg/dL 70-110 H TESTED AT [place] [address] (BEAKER) (test code = FOSTER Paul [facility] 1538) [address] POCT-GLUCOSE [id number] 08:08:00 Test Item Value Reference Range Interpretation Comments POC-GLUCOSE METER 154 mg/dL 70-110 H TESTED AT [place] [address] (BEAKER) (test code = F[place]ER Paul [facility] 1538) [address] BASIC METABOLIC [id number] 06:33:00 Test Item Value Reference Range Interpretation [...] S NOT APPLICABLE FOR DIALYSIS PATIEN TS. [id number] 06:01:00 Test Item Value Reference Range Interpretation Comments PARTIAL THROMBOPLASTIN TIME 117.2 seconds 22.5-36.0 H (BEAKER) (test code = 760) PROTHROMBIN TIME/[id number] 05:56:00 Test Item Value Reference Range Interpretation [...] ABSOLUTE COUNT 5.57 K/ L 1.78-5.38 H ([facility]) (test code = 670) LYMPHOCYTES ABSOLUTE [...] 0-1 PERCENT ([facility]) (test code = 2801) POCT-GLUCOSE [id number] 21:37:00 Test Item Value Reference Range Interpretation Comments POC-GLUCOSE METER 121 mg/dL 70-110 H TESTED AT [place] [address] ([facility]) (test code = F[place]ER Paul [facility] 1538) [address] POCT-GLUCOSE [id number] 19:01:00 Test Item Value Reference Range Interpretation Comments POC-GLUCOSE METER 191 mg/dL 70-110 H TESTED AT [place] [address] ([facility]) (test code = MARIA GME [place] [facility] 1538) [address] [id number] 18:31:00 Test Item Value Reference Range Interpretation Comments PARTIAL THROMBOPLASTIN TIME 86.2 seconds 22.5-36.0 H ([facility]) (test code = 760) POCT-GLUCOSE [id number] 13:05:00 Test Item Value Reference Range Interpretation Comments POC-GLUCOSE METER 130 mg/dL 70-110 H TESTED AT [place] [address] ([facility]) (test code = [place]OSTER Paul [place] [address]) [address] RAD, CHEST, 1 VIEW, NON [id number] 12:22:00Reason for exam:->pleural effusionsShould this be performed [...] MARQUEZeport Verified Date/Time: 12/07/2018 12:22:50 Reading Location: [address] Neuro Reading Room [id number] 11:39:00 Test Item Value Reference Range Interpretation Comments PARTIAL THROMBOPLASTIN TIME 100.1 seconds 22.5-36.0 H (BEAKER) (test code = 760) BODY FLUID CULTURE + GRAM [id number] 10:13:00 Test Item Value Reference Range Interpretation Comments CULTURE (BEAKER) (test No growth code = 1095) GRAM STAIN RESULT <1+ White blood cells (BEAKER) (test code = seen 1123) GRAM STAIN RESULT No organisms seen (BEAKER) (test code = 83617) POCT-GLUCOSE [id number] 08:51:00 Test Item Value Reference Range Interpretation Comments POC-GLUCOSE METER 90 mg/dL 70-[address] [facility] 6720 (BEAKER) (test code = FOSTER Paul [facility] [address] 1538) BASIC METABOLIC [id number] 07:31:00 Test Item Value Reference Range Interpretation [...] S NOT APPLICABLE FOR DIALYSIS PATIEN TS. [id number] 05:21:00 Test Item Value Reference Range Interpretation Comments PARTIAL THROMBOPLASTIN TIME 104.0 seconds 22.5-36.0 H (BEAKER) (test code = 760) PROTHROMBIN TIME/[id number] 04:50:00 Test Item Value Reference Range Interpretation [...] 0-1 PERCENT (BEAKER) (test code = 2801) [id number] 20:33:00 Test Item Value Reference Range Interpretation Comments PARTIAL THROMBOPLASTIN TIME 87.6 seconds 22.5-36.0 H (BEAKER) (test code = 760) POCT-GLUCOSE [id number] 19:30:00 Test Item Value Reference Range Interpretation Comments POC-GLUCOSE METER 112 mg/dL 70-110 H TESTED AT [place] [address] (BEAKER) (test code = F[place]ER Paul [facility] 1538) [address] [id number] 13:55:00 Test Item Value Reference Range Interpretation Comments PARTIAL THROMBOPLASTIN TIME 85.9 seconds 22.5-36.0 H (BEAKER) (test code = 760) POCT-GLUCOSE [id number] 09:12:00 Test Item Value Reference Range Interpretation Comments POC-GLUCOSE METER 112 mg/dL 70-110 H TEST[facility] AT [place] [address] [facility] (test code = [facility] 1538) [address] BASIC METABOLIC [id number] 08:53:00 Test Item Value Reference Range Interpretation [...] S NOT APPLICABLE FOR DIALYSIS PATIEN TS. [id number] 06:04:00 Test Item Value Reference Range Interpretation Comments PARTIAL THROMBOPLASTIN TIME 105.5 seconds 22.5-36.0 H (BEAKER) (test code = 760) PROTHROMBIN [id number] 05:44:00 Test Item Value Reference Range Interpretation [...] (test code = 2801) CT, CHEST, WITHOUT [id number] 03:17:00FINAL REPORT EXAM: CT of the chest, [...] left pleural effusion with associated compressive atelectasis. Wvpdj-ny-ogvhujte loculated right pleural effusion with pleural thickening [...] Taylor Verified Date/Time: 12/06/2018 03:17:03 Reading Location: [facility] B1 C013Y CT Body Reading Room POCT-GLUCOSE [id number] 21:22:00 Test Item Value Reference Range Interpretation Comments POC-GLUCOSE METER 171 mg/dL 70-110 H TESTED AT [place] [address] ([facility]) (test code = FOSTER Paul [facility] 1538) [address] POCT-GLUCOSE [id number] 17:58:00 Test Item Value Reference Range Interpretation Comments POC-GLUCOSE METER 128 mg/dL 70-110 H TESTED AT [place] [address] ([facility]) (test code = MARIA GOSMAN [place] [facility] 1538) [address] POCT-GLUCOSE [id number] 13:24:00 Test Item Value Reference Range Interpretation Comments POC-GLUCOSE METER 129 mg/dL 70-110 H TESTED AT [facility] 6720 (BEAKER) (test code = [place] 1538) [address] LACTATE DEHYDROGENASE (LDH)2018-12-05 13:14:00 Test Item Value Reference Range Interpretation Comments LACTATE DEHYDROGENASE (BEAKER) (test 291 U/L 125-220 H code = 635) [id number] 13:10:00 Test Item Value Reference Range Interpretation Comments PARTIAL THROMBOPLASTIN TIME 91.7 seconds 22.5-36.0 H (BEAKER) (test code = 760) POCT-GLUCOSE [id number] 08:19:00 Test Item Value Reference Range Interpretation Comments POC-GLUCOSE METER 106 mg/dL 70-[address] [facility] 6720 (BEAKER) (test code = [place] 1538) [address] BASIC METABOLIC [id number] 07:05:00 Test Item Value Reference Range Interpretation [...] S NOT APPLICABLE FOR DIALYSIS PATIEN TS. [id number] 06:32:00 Test Item Value Reference Range Interpretation [...] 2.5-3.5 for patients with mechanical heart valves.PROTHROMBIN TIME/[id number] 06:30:00 Test Item Value Reference Range Interpretation [...] 0-1 PERCENT (BEAKER) (test code = 2801) [id number] 00:40:00 Test Item Value Reference Range Interpretation Comments PARTIAL THROMBOPLASTIN TIME 63.1 seconds 22.5-36.0 H (BEAKER) (test code = 760) POCT-GLUCOSE [id number] 00:12:00 Test Item Value Reference Range Interpretation Comments POC-GLUCOSE METER 124 mg/dL 70-[address] [facility] 6720 (BEAKER) (test code = MARIA GOSMAN Paul [facility] 1538) [address] HEPATITIS B SURFACE [id number] 22:54:00 Test Item Value Reference Range Interpretation Comments HEPATITIS B SURFACE ANTIGEN (2) Nonreactive Nonreactive (BEAKER) (test code = 2585) For chronic HD patients, draw HBsAg with each admission then every 30 days.BODY FLUID CELL COUNT WITH [id number] 20:34:00 Test Item Value Reference Range Interpretation Comments APPEARANCE FLUID (BEAKER) (test Cloudy Clear A code = 510) COLOR FLUID (BEAKER) (test code Brown Colorless, Straw A = 511) RBC FLUID (BEAKER) (test code = 17214 /cu mm <=1 H 513) ADJUSTED WBC [...] code = 2873) LACTATE DEHYDROGENASE (LDH), BODY [id number] 19:43:00 Test Item Value Reference Range Interpretation [...] local 1% lidocaine anesthesia was administered.A 4 Grenadian catheter was advanced into the largest pocket of the septated pleural effusion and 300 ccof bloody fluid was removed. The catheter was removed without immediate complication. Samples were sent for analysis. IMPRESSION:Uncomplicated ultrasound-guided right thoracentesis with 300 cc fluid removed. Signed: Raimundo Kim MDReport Verified Date/Time: 12/04/2018 18:00:50 Reading Location: [address] Ultrasound Reading Room RAD, CHEST, 1 VIEW, NON [id number] 17:23:00Reason for exam:->s/p right thoracentesisShould this be [...] MDRepdamion Verified Date/Time: 12/04/2018 17:23:06 Reading Location: [facility] Reading Room C. DIFFICILE GDH [id number] 10:01:00 Test Item Value Reference Range Interpretation Comments CDT TOXIN (test code Negative Negative = [id number]) CDT GDH ANTIGEN Positive Negative A C. difficile present but (test code = toxin not detec jayla. [id number]) Indicates colon ization with non-toxige ron strain or level of tox in below detectable leve ls. No need for enteri c isolation. Gary atment is rarely needed ( only when strong clinical suspicion for Clostridium difficile infection) Testing performed by frents Rapid Cassette Assay. For GDH, published sensitivity of the assay is 98.7% compared to cytotoxicity testing. For Toxin AB, published sensitivity is 87.8% and specificity 99.4% compared to cytotoxicity testing.Verification of kit performance was done by the [facility] Microbiology Lab prior to clinical use.[id number] 09:39:00 Test Item Value Reference Range Interpretation Comments PARTIAL THROMBOPLASTIN TIME 79.4 seconds 22.5-36.0 H (BEAKER) (test code = 760) OCCULT BLOOD, [id number] 05:59:00 Test Item Value Reference Range Interpretation Comments FECAL OCCULT BLOOD (BEAKER) (test Negative Negative code = 618) BASIC METABOLIC [id number] 02:50:00 Test Item Value Reference Range Interpretation [...] S NOT APPLICABLE FOR DIALYSIS PATIEN TS. [id number] 02:50:00 Test Item Value Reference Range Interpretation Comments PARTIAL THROMBOPLASTIN TIME 35.3 seconds 22.5-36.0 (BEAKER) (test code = 760) Prior to initiating heparinPROTHROMBIN TIME/[id number] 02:49:00 Test Item Value Reference Range Interpretation [...] acute neurological disease, and persistent tachyarrhythmia.HEPATIC FUNCTION [id number] 02:43:00 Test Item Value Reference Range Interpretation [...] 6-55 347) CBC W/PLT COUNT & AUTO [id number] 02:21:00 Test Item Value Reference Range Interpretation [...] PERCENT (BEAKER) (test code = 2801) POCT-GLUCOSE [id number] 21:22:00 Test Item Value Reference Range Interpretation Comments POC-GLUCOSE METER 192 mg/dL 70-[address] [facility] 6720 ([facility]) (test code = [facility] 1538) [address] TROPONIN [id number] 17:09:00 Test Item Value Reference Range Interpretation Comments TROPONIN I ([facility]) (test code = 0.10 ng/mL 0.00-0.03 [...] and persistent tachyarrhythmia.RAD, CHEST, 1 VIEW, NON [id number] 15:36:00Reason for exam:->SHORTNESS OF BREATHShould this be performed at the bedside?->YesFINAL REPORT AP chest HISTORY: Shortness of breath. COMPARISON: 11/03/2017. IMPRESSION: Cardiomegaly. Mild interstitial edema. Right effusion and adjacent atelectasis. No pneumothorax. Signed: Mandy Chairez MDReport Verified Date/Time: 12/03/2018 15:36:19 Reading Location: [address] Radiology Reading Room TROPONIToy [id number] 14:48:00 Test Item Value Reference Range Interpretation [...] (BEAKER) (test code = 700) BASIC METABOLIC [id number] 14:40:00 Test Item Value Reference Range Interpretation [...] S NOT APPLICABLE FOR DIALYSIS PATIEN TS. PT/[id number] 14:34:00 Test Item Value Reference Range Interpretation [...] (test code = 2801) RAD, CHEST, 2 [id number] 15:24:00Reason for Exam:->chronic Diastolic heart FailureFINAL REPORT [...] MDReport Verified Date/Time: 11/03/2018 15:24:42 Reading Location: [address] Radiology Reading Room MISCELLANEOUS LAB [id number] 08:22:00 Test Item Value Reference Range Interpretation Comments SCAN RESULT (test code = 0215676) PROTHROMBIN [id number] 08:37:00 Test Item Value Reference Range Interpretation Comments PROTIME (BEAKER) (test code = 24.8 seconds 11.7-14.7 H 759) INR (BEAKER) (test code = 370) 2.2 <=5.9 RECOMMENDED COUMADIN/WARFARIN INR THERAPY RANGESSTANDARD DOSE: 2.0 - 3.0 Includes: PROPHYLAXIS forvenous thrombosis, systemic embolization; TREATMENT for venous thrombosis and/or pulmonary embolus.HIGH RISK: Target INR is 2.5-3.5 for patients with mechanical heart valves.POCT-GLUCOSE [id number] 08:10:00 Test Item Value Reference Range Interpretation Comments POC-GLUCOSE METER 89 mg/dL 70-[address] [facility] 6720 (BEAKER) (test code = [facility] [address] 1538) BASIC METABOLIC [id number] 06:29:00 Test Item Value Reference Range Interpretation [...] S NOT APPLICABLE FOR DIALYSIS PATIEN TS. [id number] 06:28:00 Test Item Value Reference Range Interpretation Comments MAGNESIUM (BEAKER) (test code = 1.8 mg/dL 1.6-2.6 627) [id number] 06:14:00 Test Item Value Reference Range Interpretation Comments PARTIAL THROMBOPLASTIN TIME 64.7 seconds 22.5-36.0 H (BEAKER) (test code = 760) CBC W/PLT COUNT & AUTO [id number] 05:58:00 Test Item Value Reference Range Interpretation [...] 0-1 PERCENT ([facility]) (test code = 2801) POCT-GLUCOSE [id number] 21:14:00 Test Item Value Reference Range Interpretation Comments POC-GLUCOSE METER 135 mg/dL 70-110 H TESTED AT [place] [address] ([facility]) (test code = [facility] 1538) [address] [id number] 19:36:00 Test Item Value Reference Range Interpretation Comments PARTIAL THROMBOPLASTIN TIME 88.6 seconds 22.5-36.0 H ([facility]) (test code = 760) POCT-GLUCOSE [id number] 18:27:00 Test Item Value Reference Range Interpretation Comments POC-GLUCOSE METER 88 mg/dL 70-110 TESTED AT [place] [address] ([facility]) (test code = [facility] [address] 1538) POCT-GLUCOSE [id number] 12:05:00 Test Item Value Reference Range Interpretation Comments POC-GLUCOSE METER 92 mg/dL 70-110 TESTED AT [place] [address] ([facility]) (test code = [facility] [address] 1538) [id number] 11:46:00 Test Item Value Reference Range Interpretation Comments PARTIAL THROMBOPLASTIN TIME 74.3 seconds 22.5-36.0 H ([facility]) (test code = 760) POCT-GLUCOSE [id number] 10:36:00 Test Item Value Reference Range Interpretation Comments POC-GLUCOSE METER 101 mg/dL 70-110 TESTED AT [place] [address] ([facility]) (test code = [facility] 1538) [address] POCT-GLUCOSE [id number] 07:10:00 Test Item Value Reference Range Interpretation Comments POC-GLUCOSE METER 92 mg/dL 70-110 TESTED AT [place] [address] ([facility]) (test code = [facility] [address] 1538) PROTHROMBIN [id number] 01:41:00 Test Item Value Reference Range Interpretation Comments PROTIME ([facility]) (test code = 22.8 seconds 11.7-14.7 H 759) INR ([facility]) (test code = 370) 2.0 <=5.9 RECOMMENDED COUMADIN/WARFARIN INR THERAPY RANGESSTANDARD DOSE: 2.0 - 3.0 Includes: PROPHYLAXIS forvenous thrombosis, systemic embolization; TREATMENT for venous thrombosis and/or pulmonary embolus.HIGH RISK: Target INR is 2.5-3.5 for patients with mechanical heart valves.While on warfarin.[id number] 01:41:00 Test Item Value Reference Range Interpretation Comments PARTIAL THROMBOPLASTIN TIME 52.3 seconds 22.5-36.0 H (BEAKER) (test code = 760) While on warfarin.BASIC METABOLIC [id number] 01:37:00 Test Item Value Reference Range Interpretation [...] S NOT APPLICABLE FOR DIALYSIS PATIEN TS. [id number] 01:32:00 Test Item Value Reference Range Interpretation Comments MAGNESIUM (BEAKER) (test code = 1.8 mg/dL 1.6-2.6 627) CBC W/PLT COUNT & AUTO [id number] 01:18:00 Test Item Value Reference Range Interpretation [...] 0-1 PERCENT (BEAKER) (test code = 2801) [id number] 23:23:00 Test Item Value Reference Range Interpretation Comments PARTIAL THROMBOPLASTIN TIME 125.2 seconds 22.5-36.0 H (BEAKER) (test code = 760) POCT-GLUCOSE [id number] 21:19:00 Test Item Value Reference Range Interpretation Comments POC-GLUCOSE METER 165 mg/dL 70-[address] [facility] 6720 ([facility]) (test code = [facility] 1538) [address] POCT-GLUCOSE [id number] 18:34:00 Test Item Value Reference Range Interpretation Comments POC-GLUCOSE METER 92 mg/dL 70-[address] [facility] 67 ([facility]) (test code = [facility] [address] 1538) [id number] 17:17:00 Test Item Value Reference Range Interpretation Comments PARTIAL THROMBOPLASTIN TIME 75.2 seconds 22.5-36.0 H ([facility]) (test code = 760) POCT-GLUCOSE [id number] 12:48:00 Test Item Value Reference Range Interpretation Comments POC-GLUCOSE METER 105 mg/dL 70-110 TESTED AT [place] [address] ([facility]) (test code = [facility] 1538) [address] RAD, CHEST, 1 VIEW, NON [id number] 11:00:00Reason for exam:->eval right effusionShould this be performed at the bedside?->YesFINAL REPORT Comparison: 08/15/2018 TECHNIQUE: Single view of the chest FINDINGS: Small to moderate right pleural effusion is stable. Small left pleural effusion may be slightly increased. Vascular congestion seen. No other significant change. Signed: Kyle Rome MDReport Verified Date/Time: 08/18/2018 11:00:36 Reading Location: [facility] Radiology Reading Room Electronicallysigned by: KYLE ROME M.D. on 08/18/2018 11:00 [id number] 09:48:00 Test Item Value Reference Range Interpretation Comments PARTIAL THROMBOPLASTIN TIME 48.8 seconds 22.5-36.0 H ([facility]) (test code = 760) POCT-GLUCOSE [id number] 07:37:00 Test Item Value Reference Range Interpretation Comments POC-GLUCOSE METER 96 mg/dL 70-[address] [facility] 6720 ([facility]) (test code = [facility] [address] 1538) BASIC METABOLIC [id number] 02:24:00 Test Item Value Reference Range Interpretation [...] S NOT APPLICABLE FOR DIALYSIS PATIEN TS. [id number] 02:22:00 Test Item Value Reference Range Interpretation Comments MAGNESIUM (BEAKER) (test code = 1.7 mg/dL 1.6-2.6 627) [id number] 02:15:00 Test Item Value Reference Range Interpretation Comments PARTIAL THROMBOPLASTIN TIME 98.9 seconds 22.5-36.0 H (BEAKER) (test code = 760) PROTHROMBIN [id number] 02:13:00 Test Item Value Reference Range Interpretation [...] PERCENT (BEAKER) (test code = 2801) POCT-GLUCOSE [id number] 21:51:00 Test Item Value Reference Range Interpretation Comments POC-GLUCOSE METER 98 mg/dL 70-110 [facility] [place] [address] [facility] (test code = [facility] [address] 1538) [id number] 18:51:00 Test Item Value Reference Range Interpretation Comments PARTIAL THROMBOPLASTIN TIME 56.1 seconds 22.5-36.0 H (BEAKER) (test code = 760) [id number] 17:06:00 Test Item Value Reference Range Interpretation Comments PARTIAL THROMBOPLASTIN TIME 121.9 seconds 22.5-36.0 H (BEAKER) (test code = 760) POCT-GLUCOSE [id number] 16:46:00 Test Item Value Reference Range Interpretation Comments POC-GLUCOSE METER 135 mg/dL 70-110 H TESTED AT [place] [address] ([facility]) (test code = [facility] 1538) [address] POCT-GLUCOSE [id number] 13:28:00 Test Item Value Reference Range Interpretation Comments POC-GLUCOSE METER 96 mg/dL 70-110 TESTED AT [place] [address] ([facility]) (test code = [facility] [address] 1538) [id number] 09:15:00 Test Item Value Reference Range Interpretation Comments PARTIAL THROMBOPLASTIN TIME 58.1 seconds 22.5-36.0 H (BEAKER) (test code = 760) BASIC METABOLIC [id number] 07:31:00 Test Item Value Reference Range Interpretation [...] S NOT APPLICABLE FOR DIALYSIS PATIEN TS. [id number] 07:19:00 Test Item Value Reference Range Interpretation Comments PHOSPHORUS (BEAKER) (test code = 3.7 mg/dL 2.3-4.7 604) [id number] 07:19:00 Test Item Value Reference Range Interpretation Comments MAGNESIUM (BEAKER) (test code = 1.7 mg/dL 1.6-2.6 627) [id number] 07:07:00 Test Item Value Reference Range Interpretation Comments PARTIAL THROMBOPLASTIN TIME 124.4 seconds 22.5-36.0 H (BEAKER) (test code = 760) PROTHROMBIN [id number] 07:02:00 Test Item Value Reference Range Interpretation [...] 0-1 PERCENT (BEAKER) (test code = 2801) [id number] 23:01:00 Test Item Value Reference Range Interpretation Comments PARTIAL THROMBOPLASTIN TIME 46.5 seconds 22.5-36.0 H ([facility]) (test code = 760) POCT-GLUCOSE [id number] 22:45:00 Test Item Value Reference Range Interpretation Comments POC-GLUCOSE METER 144 mg/dL 70-[address] [facility] 6720 ([facility]) (test code = [facility] 1538) [address] [id number] 15:02:00 Test Item Value Reference Range Interpretation Comments PARTIAL THROMBOPLASTIN TIME 56.1 seconds 22.5-36.0 H ([facility]) (test code = 760) POCT-GLUCOSE [id number] 14:39:00 Test Item Value Reference Range Interpretation Comments POC-GLUCOSE METER 189 mg/dL 70-[address] [facility] 67 ([facility]) (test code = [facility] 1538) [address] HIV-1 PCR, [id number] 13:58:00 Test Item Value Reference Range Interpretation Comments HIV-1 NUMERIC RESULT ([facility]) (test 170 Cp/mL <20 H code = 2704) This test uses a Real-Time Polymerase Chain Reaction (RT-PCR) methodology to detect a highly conserved region of the HIV-1 gag gene and was performed using the ERICH AmpliPrep/ERICH TaqMan HIV-1 test kit version 2.0 ([employer]Reportable range for this assay is 20 - 10,000,000 copies per mL (1.3 - 7.0 Log copies/mL).[id number] 12:54:00 Test Item Value Reference Range Interpretation Comments PARTIAL THROMBOPLASTIN TIME 143.6 seconds 22.5-36.0 H ([facility]) (test code = 760) [id number] 10:00:00Medical Cytology Report Case: [id number] Authorizing Provider: Alison Solano MD Collected: 08/13/2018 1807 Ordering Location: [address] Received: 08/14/2018 0923 Service Pathologist: Yamil Hamm MD Specimen: Pleural, Right RIGHT PLEURAL FLUID (CYTOSPINS AND CELL BLOCK): - NO MALIGNANT CELLS IDENTIFIED (SEE COMMENT) Signing Pathologist Direct Phone Line: [phone] signed by Yamil Hamm MD on 08/16/2018 [...] thoracentesis may be considered when fluid reaccumulates. [address]324, 276[address], 16087, [address]3334 x 2Left pleural effusion, history of AIDS, Kaposi's sarcoma, hepatitis C.RIGHT PLEURAL FLUID 300 mls bloody; 4 cytospins, cell blockCollected: [id number]: [id number] interpretation of this case included the use of immunohistochemistry or special stains. Please see the immunohistochemistry results in the COMMENT section. Immunohistochemistry technical testing was performed at [facility], Pathology Laboratory where it was developed [...] as qualified toperform high complexity clinical laboratory testing.[facility], Department of Pathology, [address] [place] [address], [facility], [address] [place] [address], [facility], [facility] of [facility], [address] [place] [address], FNWY-GLUCOSE [id number] 08:29:00 Test Item Value Reference Range Interpretation Comments POC-GLUCOSE METER 96 mg/dL 70-110 TESTED AT [place] [address] (JARR[facility]) (test code = [place]ER Paul [place] [id number] 1538) BODY FLUID CULTURE + GRAM [id number] 07:54:00 Test Item Value Reference Range Interpretation Comments CULTURE (BEAKER) (test code No growth = 1095) GRAM STAIN RESULT (BEAKER) <1+ WBCs (test code = 1123) GRAM STAIN RESULT (BEAKER) No organisms seen (test code = 90665) BASIC METABOLIC [id number] 06:30:00 Test Item Value Reference Range Interpretation [...] S NOT APPLICABLE FOR DIALYSIS PATIEN TS. [id number] 06:26:00 Test Item Value Reference Range Interpretation Comments MAGNESIUM (BEAKER) (test code = 1.6 mg/dL 1.6-2.6 627) [id number] 05:48:00 Test Item Value Reference Range Interpretation Comments PARTIAL THROMBOPLASTIN TIME 80.3 seconds 22.5-36.0 H (BEAKER) (test code = 760) While on warfarin.PROTHROMBIN TIME/[id number] 05:46:00 Test Item Value Reference Range Interpretation [...] valves.While on warfarin.CBC W/PLT COUNT & AUTO [id number] 05:28:00 Test Item Value Reference Range Interpretation [...] 0-1 PERCENT (BEAKER) (test code = 2801) [id number] 22:09:00 Test Item Value Reference Range Interpretation Comments PARTIAL THROMBOPLASTIN TIME 61.5 seconds 22.5-36.0 H (BEAKER) (test code = 760) RAD, CHEST, 1 VIEW, NON [id number] 20:20:00Reason for exam:->eval right effusionShould this be [...] Anderson Verified Date/Time: 08/15/2018 20:20:24 Reading Location: [facility] Radiology Reading Room POCT-GLUCOSE [id number] 19:05:00 Test Item Value Reference Range Interpretation Comments POC-GLUCOSE METER 87 mg/dL 70-[address] [facility] 6720 ([facility]) (test code = [facility] [address] 1538) POCT-GLUCOSE [id number] 13:12:00 Test Item Value Reference Range Interpretation Comments POC-GLUCOSE METER 162 mg/dL 70-[address] [facility] 6720 ([facility]) (test code = [facility] 1538) [address] [id number] 12:48:00 Test Item Value Reference Range Interpretation Comments PARTIAL THROMBOPLASTIN TIME 89.1 seconds 22.5-36.0 H (BEAKER) (test code = 760) POCT-GLUCOSE [id number] 09:58:00 Test Item Value Reference Range Interpretation Comments POC-GLUCOSE METER 229 mg/dL 70-[address] [facility] 6720 (BEAKER) (test code = [place] 1538) [address] BASIC METABOLIC [id number] 05:40:00 Test Item Value Reference Range Interpretation [...] PATIEN TS. CBC W/PLT COUNT & AUTO [id number] 05:38:00 Test Item Value Reference Range Interpretation [...] 0-1 PERCENT (BEAKER) (test code = 2801) [id number] 05:28:00 Test Item Value Reference Range Interpretation Comments MAGNESIUM (BEAKER) (test code = 1.8 mg/dL 1.6-2.6 627) [id number] 04:47:00 Test Item Value Reference Range Interpretation Comments PARTIAL THROMBOPLASTIN TIME 60.9 seconds 22.5-36.0 H (BEAKER) (test code = 760) PROTHROMBIN [id number] 04:46:00 Test Item Value Reference Range Interpretation Comments PROTIME (BEAKER) (test code = 17.9 seconds 11.7-14.7 H 759) INR (BEAKER) (test code = 370) 1.5 <=5.9 RECOMMENDED COUMADIN/WARFARIN INR THERAPY RANGESSTANDARD DOSE: 2.0 - 3.0 Includes: PROPHYLAXIS forvenous thrombosis, systemic embolization; TREATMENT for venous thrombosis and/or pulmonary embolus.HIGH RISK: Target INR is 2.5-3.5 for patients with mechanical heart valves.[id number] 20:56:00 Test Item Value Reference Range Interpretation Comments PARTIAL THROMBOPLASTIN TIME 52.1 seconds 22.5-36.0 H ([facility]) (test code = 760) CT, CHEST, WITHOUT [id number] 19:06:00S/p fall in Jul--> right effusion, tapped [...] Tapia Verified Date/Time: 08/14/2018 19:06:09 Reading Location: [address] Reading Room [id number] 12:40:00 Test Item Value Reference Range Interpretation Comments PARTIAL THROMBOPLASTIN TIME 48.4 seconds 22.5-36.0 H (BEAKER) (test code = 760) CD4 T CELL [id number] 11:15:00 Test Item Value Reference Range Interpretation [...] 107-698 L (BEAKER) (test code = 3491) [id number] 10:48:00 Test Item Value Reference Range Interpretation Comments PHOSPHORUS (BEAKER) (test code = 5.2 mg/dL 2.3-4.7 H 604) BASIC METABOLIC [id number] 07:13:00 Test Item Value Reference Range Interpretation [...] S NOT APPLICABLE FOR DIALYSIS PATIEN TS. [id number] 07:11:00 Test Item Value Reference Range Interpretation Comments MAGNESIUM (BEAKER) (test code = 1.8 mg/dL 1.6-2.6 627) [id number] 07:00:00 Test Item Value Reference Range Interpretation Comments PARTIAL THROMBOPLASTIN TIME 59.2 seconds 22.5-36.0 H (BEAKER) (test code = 760) PROTHROMBIN [id number] 06:59:00 Test Item Value Reference Range Interpretation [...] 0-1 PERCENT (BEAKER) (test code = 2801) [id number] 00:30:00 Test Item Value Reference Range Interpretation Comments PARTIAL THROMBOPLASTIN TIME 56.7 seconds 22.5-36.0 H (BEAKER) (test code = 760) BODY FLUID CELL COUNT WITH [id number] 19:28:00 Test Item Value Reference Range Interpretation Comments APPEARANCE FLUID (BEAKER) (test Cloudy Clear A code = 510) COLOR FLUID (BEAKER) (test code Red Colorless, Straw A = 511) RBC FLUID (BEAKER) (test code = 12943 /cu mm <=1 H 513) ADJUSTED WBC [...] Tube (test code = 2873) ALBUMIN, BODY [id number] 18:40:00 Test Item Value Reference Range Interpretation Comments ALBUMIN FLUID (BEAKER) (test code = 2.1 gm/dL 501) Reference Range: No Normals Assay performance has not been validated for this type of specimen.LACTATE DEHYDROGENASE (LDH), BODY [id number] 18:40:00 Test Item Value Reference Range Interpretation [...] 125-220 H code = 635) HEPATIC FUNCTION [id number] 18:40:00 Test Item Value Reference Range Interpretation [...] 6-55 347) RAD, CHEST, 1 VIEW, NON [id number] 17:56:00Reason for exam:->post Right thoracentesisShould this be [...] appendage closure. Interstitial edema. Signed: Katherine Arteaga MDRepsaint francis [facility] Verified Date/Time: 08/13/2018 17:56:18 Reading Location: [address] Consult Reading Room U/S, [id number] 16:22:00Reason for exam:->shortness of breath, recurrent right pleural effusionShould this be performed at the bedside?->NoFINAL REPORT Ultrasound guided right thoracentesis, 08/13/2018. Clinical His tory: Right pleural effusion. Modality: Ultrasound. Sedation: None. Air Director: Gini. Senior Government Program Analyst: None. Estimated Blood Loss: 1cc [...] Musaepdamion Verified Date/Time: 08/13/2018 16:22:16 Reading Location: [address] Ultrasound Reading Room [id number] 07:18:00 Test Item Value Reference Range Interpretation Comments MAGNESIUM (BEAKER) (test code = 2.0 mg/dL 1.6-2.6 627) BASIC METABOLIC [id number] 07:18:00 Test Item Value Reference Range Interpretation [...] PATIEN TS. RAD, CHEST, 1 VIEW, NON [id number] 06:25:00Reason for exam:->SOBShould this be performed at [...] Taylorort Verified Date/Time: 08/13/2018 06:25:21 Reading Location: [address] Re ading Room [id number] 05:49:00 Test Item Value Reference Range Interpretation Comments PARTIAL THROMBOPLASTIN TIME 42.0 seconds 22.5-36.0 H (BEAKER) (test code = 760) PROTHROMBIN [id number] 05:48:00 Test Item Value Reference Range Interpretation [...] PERCENT (BEAKER) (test code = 2801) POCT-GLUCOSE [id number] 18:30:00 Test Item Value Reference Range Interpretation Comments POC-GLUCOSE METER 80 mg/dL 70-[address] [facility] 6720 (BEAKER) (test code = [place] [address] 1538) RAD, CHEST, 1 VIEW, NON [id number] 13:46:00Reason for exam:->evaluate pleural effusionShould this be performed at the bedside?->YesFINAL REPORT Comparison: 08/02/2018 TECHNIQUE: Single view of the chest FINDINGS Bilateral interstitial and airspace opacities are stable. Bilateral pleural effusions seen, right greater than left. No gross new lung parenchymal changes. Post surgical changes in the mediastinum. IMPRESSION: No significant interval change. Signed: Kyle Romeeport Verified Date/Time: 08/06/2018 13:46:20 Reading Location: [facility] Radiology Reading Room [id number] 09:33:00 Test Item Value Reference Range Interpretation Comments PARTIAL THROMBOPLASTIN TIME 113.6 seconds 22.5-36.0 H (BEAKER) (test code = 760) [id number] 06:48:00 Test Item Value Reference Range Interpretation [...] heart valves.While on warfarin.While on warfarin.BASIC METABOLIC [id number] 06:45:00 Test Item Value Reference Range Interpretation [...] NOT APPLICABLE FOR DIALYSIS PATIEN TS. PROTHROMBIN [id number] 06:43:00 Test Item Value Reference Range Interpretation [...] WBC 0-0 (BEAKER) (test code = 413) [id number] 20:40:00 Test Item Value Reference Range Interpretation Comments PARTIAL THROMBOPLASTIN TIME 81.7 seconds 22.5-36.0 H (BEAKER) (test code = 760) [id number] 14:05:00 Test Item Value Reference Range Interpretation Comments PARTIAL THROMBOPLASTIN TIME 91.5 seconds 22.5-36.0 H (BEAKER) (test code = 760) BASIC METABOLIC [id number] 07:02:00 Test Item Value Reference Range Interpretation [...] S NOT APPLICABLE FOR DIALYSIS PATIEN TS. [id number] 06:47:00 Test Item Value Reference Range Interpretation [...] valves.Ok to add onOk to add onPROTHROMBIN TIME/[id number] 06:46:00 Test Item Value Reference Range Interpretation [...] 0-1 PERCENT (BEAKER) (test code = 2801) [id number] 16:22:00 Test Item Value Reference Range Interpretation Comments PARTIAL THROMBOPLASTIN TIME 76.1 seconds 22.5-36.0 H (BEAKER) (test code = 760) BODY FLUID CULTURE + GRAM [id number] 09:10:00 Test Item Value Reference Range Interpretation Comments CULTURE (BEAKER) (test code No growth = 1095) GRAM STAIN RESULT (BEAKER) <1+ WBCs (test code = 1123) GRAM STAIN RESULT (BEAKER) No organisms seen (test code = 74106) CBC W/PLT COUNT & AUTO [id number] 07:23:00 Test Item Value Reference Range Interpretation [...] (BEAKER) (test code = 413) BASIC METABOLIC [id number] 07:05:00 Test Item Value Reference Range Interpretation [...] S NOT APPLICABLE FOR DIALYSIS PATIEN TS. [id number] 06:53:00 Test Item Value Reference Range Interpretation [...] heart valves.Ok to add onOk to add [id number] 06:53:00 Test Item Value Reference Range Interpretation Comments PARTIAL THROMBOPLASTIN TIME 70.3 seconds 22.5-36.0 H (BEAKER) (test code = 760) PROTHROMBIN TIME/[id number] 06:52:00 Test Item Value Reference Range Interpretation Comments PROTIME (BEAKER) (test code = 17.5 seconds 11.7-14.7 H 759) INR (BEAKER) (test code = 370) 1.4 <=5.9 RECOMMENDED COUMADIN/WARFARIN INR THERAPY RANGESSTANDARD DOSE: 2.0 - 3.0 Includes: PROPHYLAXIS forvenous thrombosis, systemic embolization; TREATMENT for venous thrombosis and/or pulmonary embolus.HIGH RISK: Target INR is 2.5-3.5 for patients with mechanical heart valves.PROTHROMBIN TIME/[id number] 06:51:00 Test Item Value Reference Range Interpretation Comments PROTIME (BEAKER) (test code = 17.7 seconds 11.7-14.7 H 759) INR (BEAKER) (test code = 370) 1.5 <=5.9 RECOMMENDED COUMADIN/WARFARIN INR THERAPY RANGESSTANDARD DOSE: 2.0 - 3.0 Includes: PROPHYLAXIS forvenous thrombosis, systemic embolization; TREATMENT for venous thrombosis and/or pulmonary embolus.HIGH RISK: Target INR is 2.5-3.5 for patients with mechanical heart valves.While on warfarin.[id number] 22:47:00 Test Item Value Reference Range Interpretation Comments PARTIAL THROMBOPLASTIN TIME 73.6 seconds 22.5-36.0 H (BEAKER) (test code = 760) [id number] 13:08:00 Test Item Value Reference Range Interpretation Comments PARTIAL THROMBOPLASTIN TIME 49.2 seconds 22.5-36.0 H (BEAKER) (test code = 760) BASIC METABOLIC [id number] 06:56:00 Test Item Value Reference Range Interpretation [...] S NOT APPLICABLE FOR DIALYSIS PATIEN TS. [id number] 06:56:00 Test Item Value Reference Range Interpretation Comments PARTIAL THROMBOPLASTIN TIME 67.5 seconds 22.5-36.0 H (BEAKER) (test code = 760) [id number] 06:45:00 Test Item Value Reference Range Interpretation [...] valves.Ok to add onOk to add onPROTHROMBIN TIME/[id number] 06:44:00 Test Item Value Reference Range Interpretation [...] /100 WBC 0-0 (test code = 413) [id number] 02:18:00 Test Item Value Reference Range Interpretation Comments PARTIAL THROMBOPLASTIN TIME 67.1 seconds 22.5-36.0 H (BEAKER) (test code = 760) [id number] 18:56:00 Test Item Value Reference Range Interpretation Comments PARTIAL THROMBOPLASTIN TIME 72.5 seconds 22.5-36.0 H (BEAKER) (test code = 760) POCT-GLUCOSE [id number] 13:08:00 Test Item Value Reference Range Interpretation Comments POC-GLUCOSE METER 121 mg/dL 70-[address] [facility] 6720 (BEAKER) (test code = [place] 1538) [address] [id number] 12:07:00 Test Item Value Reference Range Interpretation Comments PARTIAL THROMBOPLASTIN TIME 50.7 seconds 22.5-36.0 H (BEAKER) (test code = 760) Ok to add onPROTHROMBIN TIME/[id number] 12:05:00 Test Item Value Reference Range Interpretation [...] = 413) RAD, CHEST, 1 VIEW, NON [id number] 11:24:00Reason for exam:->pleural effusionShould this be performed at the bedside?->YesFINAL REPORT AP chest HISTORY: Pleural effusion COMPARISON: 08/01/2018 IMPRESS ION:Intact skeleton. Cardiomegaly. Moderate interstitial edema. Moderate right and small left effusions. No pneumothorax. Signed: Mandy Chairez MDReport Verified Date/Time: 08/02/2018 11:24:33 Reading Location: [address] Ortho Consult Reading Room BASIC METABOLIC [id number] 02:55:00 Test Item Value Reference Range Interpretation [...] S NOT APPLICABLE FOR DIALYSIS PATIEN TED. [id number] 02:39:00 Test Item Value Reference Range Interpretation Comments PARTIAL THROMBOPLASTIN TIME 51.6 seconds 22.5-36.0 H (BEAKER) (test code = 760) CBC W/PLT COUNT & AUTO [id number] 02:30:00 Test Item Value Reference Range Interpretation [...] = 2801) BODY FLUID CELL COUNT WITH [id number] 21:13:00 Test Item Value Reference Range Interpretation Comments APPEARANCE FLUID (BEAKER) (test Bloody Clear A code = 510) COLOR FLUID (BEAKER) (test code Sunil Colorless, Straw A = 511) RBC FLUID (BEAKER) (test code = 22994 /cu mm <=1 H 513) ADJUSTED WBC [...] Tube (test code = 2873) ALBUMIN, BODY [id number] 20:00:00 Test Item Value Reference Range Interpretation Comments ALBUMIN FLUID (BEAKER) (test code = 2.1 gm/dL 501) Reference Range: No Normals Assay performance has not been validated for this type of specimen.LACTATE DEHYDROGENASE (LDH), BODY [id number] 20:00:00 Test Item Value Reference Range Interpretation [...] of specimen.RAD, CHEST, PA OR AP, 1 [id number] 17:08:00Ultrasound Room 1Reason for exam:->s/p Right sided [...] Vailort Verified Date/Time: 08/01/2018 17:08:13 Reading Location: [facility] Radiology Reading Room U/S, [id number] 17:03:00 Laterality?->RightReason for exam:->large pleural effusionFINAL REPORT HISTORY: Right pleural effusion Following informed written consent, the patient's right posterior chest wall was prepped and draped in the usual sterile manner. 2% lidocaine was given locally for anesthesia. No conscious sedation was administered. Vital signs were monitored and remained stable. Using ultrasound guidance and a 5 Grenadian angiocatheter, access was gain ed to the [...] Seymour Verified Date/Time: 08/01/2018 17:03:15 Reading Location: [facility] B1 [id number] Ultrasound Reading Room RAD, CHEST, 1 VIEW, NON [id number] 12:40:00Reason for exam:->pleural effusion; shortness of breathShould [...] MDReport Verified Date/Time: 08/01/2018 12:40:42 Reading Location: [facility] Radiology Reading Room APTT 2018-08-01 11:33:00 Test Item Value Reference Range Interpretation Comments PARTIAL THROMBOPLASTIN TIME 118.1 seconds 22.5-36.0 H (BEAKER) (test code = 760) BASIC METABOLIC [id number] 02:07:00 Test Item Value Reference Range Interpretation [...] S NOT APPLICABLE FOR DIALYSIS PATIEN TS. [id number] 01:55:00 Test Item Value Reference Range Interpretation [...] is 2.5-3.5 for patients with mechanical heart valves.[id number] 01:55:00 Test Item Value Reference Range Interpretation Comments PARTIAL THROMBOPLASTIN TIME 96.8 seconds 22.5-36.0 H (BEAKER) (test code = 760) CBC W/PLT COUNT & AUTO [id number] 01:38:00 Test Item Value Reference Range Interpretation [...] 0-1 PERCENT (BEAKER) (test code = 2801) [id number] 18:58:00 Test Item Value Reference Range Interpretation Comments PARTIAL THROMBOPLASTIN TIME 61.7 seconds 22.5-36.0 H (BEAKER) (test code = 760) [id number] 09:22:00 Test Item Value Reference Range Interpretation Comments PARTIAL THROMBOPLASTIN TIME 61.5 seconds 22.5-36.0 H (BEAKER) (test code = 760) BASIC METABOLIC [id number] 02:14:00 Test Item Value Reference Range Interpretation [...] S NOT APPLICABLE FOR DIALYSIS PATIEN TS. [id number] 01:43:00 Test Item Value Reference Range Interpretation [...] is 2.5-3.5 for patients with mechanical heart valves.[id number] 01:43:00 Test Item Value Reference Range Interpretation Comments PARTIAL THROMBOPLASTIN TIME 62.7 seconds 22.5-36.0 H (BEAKER) (test code = 760) CBC W/PLT COUNT & AUTO [id number] 01:32:00 Test Item Value Reference Range Interpretation [...] 0-1 PERCENT (BEAKER) (test code = 2801) [id number] 18:38:00 Test Item Value Reference Range Interpretation Comments PARTIAL THROMBOPLASTIN TIME 38.9 seconds 22.5-36.0 H (BEAKER) (test code = 760) Prior to initiating heparinPLATELET [id number] 18:17:00 Test Item Value Reference Range Interpretation Comments PLATELET COUNT (BEAKER) (test 115 K/CU MM 150-450 L code = 756) RAD, CHEST, 2 [id number] 18:05:00Reason for exam:->sob and pleural effusionFINAL REPORT [...] Sykes MDReport Verified Date/Time: 07/30/2018 18:05:46Reading Location: [facility] C013W Consult Reading Room C METABOLIC [id number] 05:26:00 Test Item Value Reference Range Interpretation [...] S NOT APPLICABLE FOR DIALYSIS PATIEN TS. [id number] 05:25:00 Test Item Value Reference Range Interpretation [...] 2.5-3.5 for patients with mechanical heart valves.PROTHROMBIN TIME/[id number] 05:24:00 Test Item Value Reference Range Interpretation [...] (test code = 2801) HEPATITIS B SURFACE [id number] 12:09:00 Test Item Value Reference Range Interpretation Comments HEPATITIS B SURFACE ANTIGEN (2) Nonreactive Nonreactive (BEAKER) (test code = 2585) POCT-GLUCOSE [id number] 07:50:00 Test Item Value Reference Range Interpretation Comments POC-GLUCOSE METER 93 mg/dL 70-[address] [facility] (test code = [facility] [address] 1538) [id number] 04:59:00 Test Item Value Reference Range Interpretation [...] for patients with mechanical heart valves.BASIC METABOLIC [id number] 04:59:00 Test Item Value Reference Range Interpretation [...] PATIEN TS. CBC W/PLT COUNT & AUTO [id number] 04:51:00 Test Item Value Reference Range Interpretation [...] (test code = 2801) AFB CULTURE + [id number] 16:13:00 Test Item Value Reference Range Interpretation Comments CULTURE (BEAKER) (test No acid-fast bacilli code = 1095) isolated in 42 days AFB SMEAR (BEAKER) No acid fast bacilli (test code = 994) seen AFB CULTURE + [id number] 16:13:00 Test Item Value Reference Range Interpretation Comments CULTURE (BEAKER) (test No acid-fast bacilli code = 1095) isolated in 42 days AFB SMEAR (BEAKER) No acid fast bacilli (test code = 994) seen FUNGUS CULTURE + [id number] 07:13:00 Test Item Value Reference Range Interpretation Comments CULTURE (BEAKER) (test No fungus isolated in code = 1095) 28 days FUNGUS SMEAR (BEAKER) No fungi seen (test code = 1406) FUNGUS CULTURE + [id number] 07:13:00 Test Item Value Reference Range Interpretation Comments CULTURE ([facility]) (test No fungus isolated in code = 1095) 28 days FUNGUS SMEAR ([facility]) No fungi seen (test code = 1406) TISSUE [id number] 19:17:00Surgical Pathology Report Case: [id number] Authorizing Provider: Juliana Martinez MD Collected: 05/23/2018 08 Ordering Location: [facility] PERIOPERATIVE Received: 05/23/2018 0923 SERVICES Pathologist: Brigida Parks MD Specimen: Soft Tissue, Other, LEFT GROIN - TISSUE BIOPSY SKIN AND SOFT TISSUE,GROIN,LEFT, BIOPSY: - ABSCESSES, GRANULOMAS AND CHRONIC INFLAMMATION - NEGATIVE FOR DYSPLASIA OR MALIGNANCY - AFB AND GMS STAINS ARE NEGATIVE (SEE COMMENT) Signing Pathologist Direct Phone Line: [phone] signed by Brigida Parks MD on 06/02/2018 at 7:17 PMCorrelation with culture studies is recommended.[id number] abscess groinLeft groin tissue biopsyReceived fresh labeled "soft tissue, other", description "left groin tissue biopsy" are two dark-porter, wrinkled,hair- bearing strips of skin measuring 1.5 and 2.6 cm in length, 0.3 cm in diameter and excised to a depth of 0.3 cm.Sectioning reveals no discrete masses.The specimen is entirely submitted in cassettesA1. DB/ewPOCT-GLUCOSE [id number] 08:51:00 Test Item Value Reference Range Interpretation Comments POC-GLUCOSE METER 101 mg/dL 70-[address] [facility] 6720 ([facility]) (test code = [place] [facility] 1538) [address] CBC W/PLT COUNT & AUTO [id number] 06:01:00 Test Item Value Reference Range Interpretation Comments WHITE BLOOD CELL COUNT ([facility]) 7.1 K/ L 3.5-10.5 (test code = 775) RED BLOOD CELL COUNT ([facility]) 3.50 M/ L 4.63-6.08 L (test code = 761) HEMOGLOBIN ([facility]) (test code = 10.7 GM/DL 13.7-17.5 L 410) HEMATOCRIT ([facility]) (test code = 33.4 % 40.1-51.0 [...] PERCENT (BEAKER) (test code = 2801) PROTHROMBIN [id number] 05:51:00 Test Item Value Reference Range Interpretation Comments PROTIME (BEAKER) (test code = 25.9 seconds 11.7-14.7 H 759) INR (BEAKER) (test code = 370) 2.4 <=5.9 RECOMMENDED COUMADIN/WARFARIN INR THERAPY RANGESSTANDARD DOSE: 2.0 - 3.0 Includes: PROPHYLAXIS forvenous thrombosis, systemic embolization; TREATMENT for venous thrombosis and/or pulmonary embolus.HIGH RISK: Target INR is 2.5-3.5 for patients with mechanical heart valves.BASIC METABOLIC [id number] 05:46:00 Test Item Value Reference Range Interpretation [...] NOT APPLICABLE FOR DIALYSIS PATIEN TS. POCT-GLUCOSE [id number] 20:34:00 Test Item Value Reference Range Interpretation Comments POC-GLUCOSE METER 261 mg/dL 70-110 H TESTED AT [place] [address] ([facility]) (test code = [place] [facility] 1538) [address] POCT-GLUCOSE [id number] 18:12:00 Test Item Value Reference Range Interpretation Comments POC-GLUCOSE METER 139 mg/dL 70-110 H TESTED AT [place] [address] ([facility]) (test code = [place] [facility] 1538) [address] POCT-GLUCOSE [id number] 11:51:00 Test Item Value Reference Range Interpretation Comments POC-GLUCOSE METER 147 mg/dL 70-110 H TESTED AT [place] [address] ([facility]) (test code = [place] [facility] 1538) [address] POCT-GLUCOSE [id number] 08:42:00 Test Item Value Reference Range Interpretation Comments POC-GLUCOSE METER 104 mg/dL 70-[address] [facility] 6720 (BEAKER) (test code = [place] 1538) [address] CBC W/PLT COUNT & AUTO [id number] 06:56:00 Test Item Value Reference Range Interpretation [...] (BEAKER) (test code = 2801) BASIC METABOLIC [id number] 06:49:00 Test Item Value Reference Range Interpretation [...] NOT APPLICABLE FOR DIALYSIS PATIEN TS. PROTHROMBIN [id number] 06:46:00 Test Item Value Reference Range Interpretation Comments PROTIME (BEAKER) (test code = 26.9 seconds 11.7-14.7 H 759) INR (BEAKER) (test code = 370) 2.5 <=5.9 RECOMMENDED COUMADIN/WARFARIN INR THERAPY RANGESSTANDARD DOSE: 2.0 - 3.0 Includes: PROPHYLAXIS forvenous thrombosis, systemic embolization; TREATMENT for venous thrombosis and/or pulmonary embolus.HIGH RISK: Target INR is 2.5-3.5 for patients with mechanical heart valves.ANAEROBIC [id number] 00:38:00 Test Item Value Reference Range Interpretation Comments CULTURE (BEAKER) (test No anaerobes isolated code = 1095) ANAEROBIC [id number] 00:38:00 Test Item Value Reference Range Interpretation Comments CULTURE (BEAKER) (test No anaerobes isolated code = 1095) POCT-GLUCOSE [id number] 20:43:00 Test Item Value Reference Range Interpretation Comments POC-GLUCOSE METER 124 mg/dL 70-[address] [facility] 67 ([facility]) (test code = [facility] 1538) [address] POCT-GLUCOSE [id number] 17:17:00 Test Item Value Reference Range Interpretation Comments POC-GLUCOSE METER 190 mg/dL 70-110 H TESTED AT [place] [address] ([facility]) (test code = [facility] 1538) [address] POCT-GLUCOSE [id number] 11:54:00 Test Item Value Reference Range Interpretation Comments POC-GLUCOSE METER 195 mg/dL 70-110 H TESTED AT [place] [address] ([facility]) (test code = [facility] 1538) [address] C. DIFFICILE GDH [id number] 11:16:00 Test Item Value Reference Range Interpretation Comments CDT TOXIN (test code Negative Negative = [id number]) CDT GDH ANTIGEN (test Negative Negative No ind ication of code = [id number]) Clostridi um difficile infection and n o colonization. Discontinue ent kenrick isolation and t herapy. Testing performed by [employer]rents Rapid Cassette Assay. For GDH, published sensitivity of the assay is 98.7% compared to cytotoxicity testing. For Toxin AB, published sensitivity is 87.8% and specificity 99.4% compared to cytotoxicity testing.Verification of kit performance was done by the [facility] Microbiology Lab prior to clinical use.SURGICALLY OBTAINED CULTURE + GRAM [id number] 09:22:00 Test Item Value Reference Interpretation Comments Range CULTURE ([facility]) COAGULASE NEGATIVE A <1+ C oagulase [...] No organisms seen (BEAKER) (test code = 680346) SURGICALLY OBTAINED CULTURE + GRAM [id number] 09:20:00 Test Item Value Reference Range Interpretation Comments CULTURE (BEAKER) (test code No growth = 1095) GRAM STAIN RESULT (BEAKER) 4+ WBCs (test code = 1123) GRAM STAIN RESULT (BEAKER) No organisms seen (test code = 14629) POCT-GLUCOSE [id number] 08:21:00 Test Item Value Reference Range Interpretation Comments POC-GLUCOSE METER 101 mg/dL 70-[address] [facility] 6720 (BEAKER) (test code = [place] 1538) [address] BASIC METABOLIC [id number] 07:57:00 Test Item Value Reference Range Interpretation [...] NOT APPLICABLE FOR DIALYSIS PATIEN TS. PROTHROMBIN [id number] 06:36:00 Test Item Value Reference Range Interpretation [...] PERCENT (BEAKER) (test code = 2801) POCT-GLUCOSE [id number] 21:40:00 Test Item Value Reference Range Interpretation Comments POC-GLUCOSE METER 176 mg/dL 70-110 H TESTED AT [place] [address] ([facility]) (test code = [facility] 1538) [address] POCT-GLUCOSE [id number] 16:07:00 Test Item Value Reference Range Interpretation Comments POC-GLUCOSE METER 120 mg/dL 70-110 H TESTED AT [place] [address] ([facility]) (test code = [facility] 1538) [address] POCT-GLUCOSE [id number] 08:31:00 Test Item Value Reference Range Interpretation Comments POC-GLUCOSE METER 119 mg/dL 70-110 H TESTED AT [place] [address] ([facility]) (test code = [facility] 1538) [address] BASIC METABOLIC [id number] 08:19:00 Test Item Value Reference Range Interpretation [...] APPLICABLE FOR DIALYSIS PATIEN TS. VANCOMYCIN LEVEL, [id number] 08:16:00 Test Item Value Reference Range Interpretation Comments VANCOMYCIN RANDOM (BEAKER) (test 17.6 ug/mL code = 523) Reference Range: No NormalsPROTHROMBIN [id number] 07:21:00 Test Item Value Reference Range Interpretation [...] PERCENT (BEAKER) (test code = 2801) BLOOD [id number] 06:00:00 Test Item Value Reference Range Interpretation Comments CULTURE (BEAKER) (test No growth in 5 days code = 1095) BLOOD [id number] 00:00:00 Test Item Value Reference Range Interpretation Comments CULTURE (BEAKER) (test No growth in 5 days code = 1095) POCT-GLUCOSE [id number] 22:05:00 Test Item Value Reference Range Interpretation Comments POC-GLUCOSE METER 169 mg/dL 70-[address] [facility] 6720 (BEAKER) (test code = [facility] [place] 1538) [address] POCT-GLUCOSE [id number] 18:20:00 Test Item Value Reference Range Interpretation Comments POC-GLUCOSE METER 110 mg/dL 70-[address] [facility] 6720 (BEAKER) (test code = [facility] 1538) [address] POCT-GLUCOSE [id number] 17:17:00 Test Item Value Reference Range Interpretation Comments POC-GLUCOSE METER 99 mg/dL 70-110 TESTED AT [place] [id number] (BEAKER) (test code = [facility] [place] [facility] [address] 1538) SPIN/CONCENTRATION [id number] 14:49:00 Test Item Value Reference Range Interpretation Comments CONCENTRATION CHARGED (BEAKER) (test Done code = 2657) SPIN/CONCENTRATION [id number] 14:49:00 Test Item Value Reference Range Interpretation Comments CONCENTRATION CHARGED (BEAKER) (test Done code = 2657) POCT-GLUCOSE [id number] 12:13:00 Test Item Value Reference Range Interpretation Comments POC-GLUCOSE METER 188 mg/dL 70-[address] [facility] 67 ([facility]) (test code = [facility] [place] 1538) [address] BASIC METABOLIC [id number] 09:56:00 Test Item Value Reference Range Interpretation [...] NOT APPLICABLE FOR DIALYSIS PATIEN TS. POCT-GLUCOSE [id number] 07:45:00 Test Item Value Reference Range Interpretation Comments POC-GLUCOSE METER 108 mg/dL 70-110 TESTED AT [place] [address] (BEAKER) (test code = [facility] [place] 1538) [address] CBC W/PLT COUNT & AUTO [id number] 07:00:00 Test Item Value Reference Range Interpretation [...] PERCENT (BEAKER) (test code = 2801) PROTHROMBIN [id number] 06:47:00 Test Item Value Reference Range Interpretation Comments PROTIME (BEAKER) (test code = 20.7 seconds 11.7-14.7 H 759) INR (BEAKER) (test code = 370) 1.8 <=5.9 RECOMMENDED COUMADIN/WARFARIN INR THERAPY RANGESSTANDARD DOSE: 2.0 - 3.0 Includes: PROPHYLAXIS forvenous thrombosis, systemic embolization; TREATMENT for venous thrombosis and/or pulmonary embolus.HIGH RISK: Target INR is 2.5-3.5 for patients with mechanical heart valves.POCT-GLUCOSE [id number] 20:42:00 Test Item Value Reference Range Interpretation Comments POC-GLUCOSE METER 134 mg/dL 70-110 H TESTED AT [place] [address] ([facility]) (test code = [facility] 1538) [address] POCT-GLUCOSE [id number] 13:29:00 Test Item Value Reference Range Interpretation Comments POC-GLUCOSE METER 209 mg/dL 70-110 H TESTED AT [place] [address] ([facility]) (test code = [facility] 1538) [address] POCT-GLUCOSE [id number] 08:53:00 Test Item Value Reference Range Interpretation Comments POC-GLUCOSE METER 103 mg/dL 70-110 TESTED AT [place] [address] ([facility]) (test code = [facility] 1538) [address] BASIC METABOLIC [id number] 07:47:00 Test Item Value Reference Range Interpretation [...] DIALYSIS PATIEN TS. WOUND CULTURE + GRAM [id number] 07:44:00 Test Item Value Reference Range Interpretation Comments CULTURE (BEAKER) (test code No growth = 1095) GRAM STAIN RESULT (BEAKER) No WBCs (test code = 1123) GRAM STAIN RESULT (BEAKER) No organisms seen (test code = 43717) [id number] 07:38:00 Test Item Value Reference Range Interpretation Comments PHOSPHORUS (BEAKER) (test code = 3.2 mg/dL 2.3-4.7 604) CBC W/PLT COUNT & AUTO [id number] 06:35:00 Test Item Value Reference Range Interpretation [...] H PERCENT (BEAKER) (test code = 2804) PROTHROMBIN [id number] 06:32:00 Test Item Value Reference Range Interpretation Comments PROTIME (BEAKER) (test code = 23.2 seconds 11.7-14.7 H 759) [facility] (test code = 370) 2.1 <=5.9 RECOMMENDED COUMADIN/WARFARIN INR THERAPY RANGESSTANDARD DOSE: 2.0 - 3.0 Includes: PROPHYLAXIS forvenous thrombosis, systemic embolization; TREATMENT for venous thrombosis and/or pulmonary embolus.HIGH RISK: Target INR is 2.5-3.5 for patients with mechanical heart valves.POCT-GLUCOSE [id number] 21:21:00 Test Item Value Reference Range Interpretation Comments POC-GLUCOSE METER 177 mg/dL 70-[address] [facility] 6720 ([facility]) (test code = [facility] 1538) [address] POCT-GLUCOSE [id number] 17:53:00 Test Item Value Reference Range Interpretation Comments POC-GLUCOSE METER 89 mg/dL 70-[address] [facility] 6720 ([facility]) (test code = [facility] [address] 1538) IRON, TIBC, % SAT. (WITHOUT FERRITIN)[id number] 17:45:00 Test Item Value Reference Range Interpretation Comments IRON (BEAKER) (test code = 547) 63 ug/dL 40-160 TOTAL IRON BINDING CAPACITY 203 ug/dL 250-450 L ([facility]) (test code = 769) IRON % SATURATION (2) ([facility]) 31 % 20-55 (test code = 2590) [id number] 16:07:00 Test Item Value Reference Range Interpretation Comments PHOSPHORUS (BEAKER) (test code = 5.4 mg/dL 2.3-4.7 H 604) POCT-GLUCOSE [id number] 12:41:00 Test Item Value Reference Range Interpretation Comments POC-GLUCOSE METER 110 mg/dL 70-[address] [facility] 6720 (BEAKER) (test code = [facility] [place] 1538) [address] POCT-GLUCOSE [id number] 07:00:00 Test Item Value Reference Range Interpretation Comments POC-GLUCOSE METER 159 mg/dL 70-[address] [facility] 6720 (BEAKER) (test code = [facility] [place] 1538) [address] BASIC METABOLIC [id number] 05:19:00 Test Item Value Reference Range Interpretation [...] S NOT APPLICABLE FOR DIALYSIS PATIEN TS. [id number] 05:18:00 Test Item Value Reference Range Interpretation Comments MAGNESIUM (BEAKER) (test code = 1.9 mg/dL 1.6-2.6 627) PROTHROMBIN [id number] 05:03:00 Test Item Value Reference Range Interpretation [...] PERCENT (AKER) (test code = 2801) POCT-GLUCOSE [id number] 23:35:00 Test Item Value Reference Range Interpretation Comments POC-GLUCOSE METER 190 mg/dL 70-[address] [facility] 6720 ([facility]) (test code = [place] [facility] 1538) [address] POCT-GLUCOSE [id number] 17:16:00 Test Item Value Reference Range Interpretation Comments POC-GLUCOSE METER 122 mg/dL 70-[address] [facility] 6720 ([facility]) (test code = [place] [facility] 1538) [address] U/S, TESTICULAR (SCROTUM)2018-05-21 14:53:00Reason for exam:->testicular swellingFINAL [...] MDReport Verified Date/Time: 05/21/2018 14:53:00 Reading Location: [facility] [id number] UltrasoundReading Room POCT- GLUCOSE [id number] 11:22:00 Test Item Value Reference Range Interpretation Comments POC-GLUCOSE METER 144 mg/dL 70-110 H TESTED AT [place] [address] (BEAKER) (test code = [facility] 1538) [address] POCT-GLUCOSE [id number] 07:05:00 Test Item Value Reference Range Interpretation Comments POC-GLUCOSE METER 171 mg/dL 70-110 H TEST[facility] AT [place] [address] [facility] (test code = [facility] 1538) [address] BASIC METABOLIC [id number] 06:19:00 Test Item Value Reference Range Interpretation [...] S NOT APPLICABLE FOR DIALYSIS PATIEN TS. [id number] 06:04:00 Test Item Value Reference Range Interpretation Comments MAGNESIUM (BEAKER) (test code = 1.9 mg/dL 1.6-2.6 627) PROTHROMBIN TIME/[id number] 05:31:00 Test Item Value Reference Range Interpretation [...] PERCENT (BEAKER) (test code = 2801) POCT-GLUCOSE [id number] 21:29:00 Test Item Value Reference Range Interpretation Comments POC-GLUCOSE METER 156 mg/dL 70-110 H TESTED AT [place] [address] ([facility]) (test code = [facility] 1538) [address] POCT-GLUCOSE [id number] 18:14:00 Test Item Value Reference Range Interpretation Comments POC-GLUCOSE METER 93 mg/dL 70-110 TESTED AT [place] [address] ([facility]) (test code = [facility] [place] [address] 1538) PROTHROMBIN TIME/[id number] 13:26:00 Test Item Value Reference Range Interpretation [...] Range ChangeNew: 0.5-2.2 mmol/L Previous: 5-20 mg/dLPOCT-GLUCOSE [id number] 12:04:00 Test Item Value Reference Range Interpretation Comments POC-GLUCOSE METER 111 mg/dL 70-[address] [facility] 6720 (BEAKER) (test code = [place] 1538) [address] CD4 T CELL [id number] 12:04:00 Test Item Value Reference Range Interpretation Comments CD4/CD8 RATIO FC (BEAKER) (test code = 0.76 0.70-3.23 4427) HEPATITIS B SURFACE [id number] 11:32:00 Test Item Value Reference Range Interpretation Comments HEPATITIS B SURFACE ANTIGEN (2) Nonreactive Nonreactive (BEAKER) (test code = 2585) VANCOMYCIN LEVEL, [id number] 11:10:00 Test Item Value Reference Range Interpretation Comments VANCOMYCIN RANDOM (BEAKER) (test 20.7 ug/mL code = 523) Reference Range: No NormalsBASIC METABOLIC [id number] 09:19:00 Test Item Value Reference Range Interpretation [...] S NOT APPLICABLE FOR DIALYSIS PATIEN TS. [id number] 09:16:00 Test Item Value Reference Range Interpretation Comments MAGNESIUM (BEAKER) (test code = 2.1 mg/dL 1.6-2.6 627) RAD, CHEST, 1 VIEW, NON [id number] 07:56:00Reason for exam:->pleural effusion seen on outside hospital imagingShould this be performed at the bedside?->YesFINAL REPORT Chest one view compared to February 23 Discussion: Small effusions are similar. Replaced cardiac valve and atrial appendage clip noted. No pneumothorax. Unchanged cardiac pulmonary appearance. Signed: Rhea Colindres Verified Date/Time: 05/20/2018 07:56:50 Reading Location: [facility] Radiology Reading Room POCT-GLUCOSE [id number] 07:32:00 Test Item Value Reference Range Interpretation Comments POC-GLUCOSE METER 105 mg/dL 70-[address] [facility] 6720 ([facility]) (test code = [facility] 1538) [address] CBC W/PLT COUNT & AUTO [id number] 07:01:00 Test Item Value Reference Range Interpretation [...] (BEAKER) (test code = 2801) VANCOMYCIN LEVEL, [id number] 22:39:00 Test Item Value Reference Range Interpretation Comments VANCOMYCIN RANDOM (BEAKER) (test 22.0 ug/mL code = 523) Reference Range: No NormalsCOMPREHENSIVE METABOLIC [id number] 22:39:00 Test Item Value Reference Range Interpretation [...] S NOT APPLICABLE FOR DIALYSIS PATIEN TS. [id number] 22:38:00 Test Item Value Reference Range Interpretation Comments PHOSPHORUS (BEAKER) (test code = 4.5 mg/dL 2.3-4.7 604) [id number] 22:38:00 Test Item Value Reference Range Interpretation Comments MAGNESIUM (BEAKER) (test code = 2.0 mg/dL 1.6-2.6 627) [id number] 22:29:00 Test Item Value Reference Range Interpretation Comments PARTIAL THROMBOPLASTIN TIME 45.0 seconds 22.5-36.0 H (BEAKER) (test code = 760) PROTHROMBIN [id number] 22:28:00 Test Item Value Reference Range Interpretation Comments PROTIME (BEAKER) (test code = 48.1 seconds 11.7-14.7 H 759) INR (BEAKER) (test code = 370) 5.2 <=5.9 RECOMMENDED COUMADIN/WARFARIN INR THERAPY RANGESSTANDARD DOSE: 2.0 - 3.0 Includes: PROPHYLAXIS forvenous thrombosis, systemic embolization; TREATMENT for venous thrombosis and/or pulmonary embolus.HIGH RISK: Target INR is 2.5-3.5 for patients with mechanical heart valves.POCT-GLUCOSE [id number] 21:38:00 Test Item Value Reference Range Interpretation Comments POC-GLUCOSE METER 105 mg/dL 70-[address] [facility] 6720 (JARROD) (test code = [place] 1538) [address] XR Ankle Complete 3+ Views [id number] 22:30:07Patient: SALVATORE LUGO Date/Time05/12/2018 22:24 CDTReason for [...] FSigned (Electronic Signature): 05/12/2018 9:48 amBASIC METABOLIC [id number] 11:15:00 Test Item Value Reference Range Interpretation [...] (BEAKER) (test code = 700) BASIC METABOLIC [id number] 02:55:00 Test Item Value Reference Range Interpretation [...] H (BEAKER) (test code = 700) TROPONIN [id number] 02:30:00 Test Item Value Reference Range Interpretation [...] failure, acidosis, acute neurological disease, and persistent tachyarrhythmia.[id number] 02:21:00 Test Item Value Reference Range Interpretation Comments MAGNESIUM (BEAKER) (test code = 1.8 mg/dL 1.6-2.6 627) CBC W/PLT COUNT & AUTO [id number] 00:24:00 Test Item Value Reference Range Interpretation [...] 0-1 PERCENT (BEAKER) (test code = 2801) [id number] 00:01:00 Test Item Value Reference Range Interpretation [...] mechanical heart valves.RAD, CHEST, 1 VIEW, NON [id number] 23:39:00Reason for exam:->chest painShould this be performed [...] worrisome for fluid overload-heart failure. Signed: [facility] Verified Date/Time: 02/23/2018 23:39:58 Reading Location: [address] Reading Room POCT-GLUCOSE [id number] 19:47:00 Test Item Value Reference Range Interpretation Comments POC-GLUCOSE METER 94 mg/dL 70-110 TESTED AT [place] [address] ([facility]) ([facility] [address] 1538) POCT-GLUCOSE [id number] 17:07:00 Test Item Value Reference Range Interpretation Comments POC-GLUCOSE METER 176 mg/dL 70-110 H TESTED AT [place] [address] ([facility]) (test code = [facility] 1538) [address] POCT-GLUCOSE [id number] 12:31:00 Test Item Value Reference Range Interpretation Comments POC-GLUCOSE METER 84 mg/dL 70-110 TESTED AT [place] [address] ([facility]) (test code = [facility] [place] [facility] [address] 1538) [id number] 10:40:00 Test Item Value Reference Range Interpretation Comments PARTIAL THROMBOPLASTIN TIME 88.5 seconds 22.5-36.0 H ([facility]) (test code = 760) OCCULT BLOOD, [id number] 09:36:00 Test Item Value Reference Range Interpretation Comments FECAL OCCULT BLOOD ([facility]) (test Negative Negative code = 618) POCT-GLUCOSE [id number] 08:51:00 Test Item Value Reference Range Interpretation Comments POC-GLUCOSE METER 223 mg/dL 70-110 H TESTED AT [place] [address] ([facility]) (test code = [facility] 1538) [address] [id number] 04:14:00 Test Item Value Reference Range Interpretation Comments PARTIAL THROMBOPLASTIN TIME 80.3 seconds 22.5-36.0 H ([facility]) (test code = 760) While on warfarin.PROTHROMBIN [id number] 04:13:00 Test Item Value Reference Range Interpretation Comments PROTIME ([facility]) (test code = 23.8 seconds 11.7-14.7 H 759) INR ([facility]) (test code = 370) 2.1 <=5.9 RECOMMENDED COUMADIN/WARFARIN INR THERAPY RANGESSTANDARD DOSE: 2.0 - 3.0 Includes: PROPHYLAXIS forvenous thrombosis, systemic embolization; TREATMENT for venous thrombosis and/or pulmonary embolus.HIGH RISK: Target INR is 2.5-3.5 for patients with mechanical heart valves.While on warfarin.POCT-GLUCOSE METER 2018-02-02 21:56:00 Test Item Value Reference Range Interpretation Comments POC-GLUCOSE METER 206 mg/dL 70-110 H TESTED AT [place] [address] ([facility]) (test code = [facility] 1538) [address] [id number] 19:50:00 Test Item Value Reference Range Interpretation Comments PARTIAL THROMBOPLASTIN TIME 59.7 seconds 22.5-36.0 H ([facility]) (test code = 760) POCT-GLUCOSE [id number] 17:00:00 Test Item Value Reference Range Interpretation Comments POC-GLUCOSE METER 183 mg/dL 70-110 H TESTED AT [place] [address] ([facility]) (test code = [facility] 1538) [address] [id number] 12:45:00 Test Item Value Reference Range Interpretation Comments PARTIAL THROMBOPLASTIN TIME 89.5 seconds 22.5-36.0 H ([facility]) (test code = 760) CBC W/PLT COUNT & AUTO [id number] 12:04:00 Test Item Value Reference Range Interpretation Comments WHITE BLOOD CELL COUNT ([facility]) 4.8 K/ L 3.5-10.5 (test code = 775) RED BLOOD CELL COUNT ([facility]) 2.46 M/ L 4.63-6.08 L (test code = 761) HEMOGLOBIN ([facility]) (test code = 7.5 GM/DL 13.7-17.5 L 410) HEMATOCRIT ([facility]) (test code = 24.2 % 40.1-51.0 [...] WBC 0-0 (test code = 413) POCT-GLUCOSE [id number] 11:54:00 Test Item Value Reference Range Interpretation Comments POC-GLUCOSE METER 124 mg/dL 70-110 H TESTED AT [place] [address] ([facility]) (test code = [facility] 1538) [address] POCT-GLUCOSE [id number] 07:48:00 Test Item Value Reference Range Interpretation Comments POC-GLUCOSE METER 178 mg/dL 70-110 H TESTED AT [place] [address] ([facility]) ([facility] = [facility] 1538) [address] BASIC METABOLIC [id number] 05:15:00 Test Item Value Reference Range Interpretation [...] S NOT APPLICABLE FOR DIALYSIS PATIEN TS. [id number] 04:51:00 Test Item Value Reference Range Interpretation Comments MAGNESIUM (BEAKER) (test code = 1.8 mg/dL 1.6-2.6 627) [id number] 04:36:00 Test Item Value Reference Range Interpretation Comments PARTIAL THROMBOPLASTIN TIME 91.9 seconds 22.5-36.0 H (BEAKER) (test code = 760) While on warfarin.PROTHROMBIN TIME/[id number] 04:34:00 Test Item Value Reference Range Interpretation Comments PROTIME (BEAKER) (test code = 21.6 seconds 11.7-14.7 H 759) INR ([facility]) (test code = 370) 1.9 <=5.9 RECOMMENDED COUMADIN/WARFARIN INR THERAPY RANGESSTANDARD DOSE: 2.0 - 3.0 Includes: PROPHYLAXIS forvenous thrombosis, systemic embolization; TREATMENT for venous thrombosis and/or pulmonary embolus.HIGH RISK: Target INR is 2.5-3.5 for patients with mechanical heart valves.While on warfarin.POCT-GLUCOSE METER 2018-02-01 21:46:00 Test Item Value Reference Range Interpretation Comments POC-GLUCOSE METER 126 mg/dL 70-110 H TESTED AT [place] [address] ([facility]) (test code = [facility] 1538) [address] [id number] 21:23:00 Test Item Value Reference Range Interpretation Comments PARTIAL THROMBOPLASTIN TIME 84.1 seconds 22.5-36.0 H ([facility]) (test code = 760) POCT-GLUCOSE [id number] 16:57:00 Test Item Value Reference Range Interpretation Comments POC-GLUCOSE METER 156 mg/dL 70-110 H TESTED AT [place] [id number] ([facility]) (test code = [facility] 1538) [address] [id number] 14:11:00 Test Item Value Reference Range Interpretation Comments PARTIAL THROMBOPLASTIN TIME 96.5 seconds 22.5-36.0 H ([facility]) (test code = 760) POCT-GLUCOSE [id number] 08:24:00 Test Item Value Reference Range Interpretation Comments POC-GLUCOSE METER 169 mg/dL 70-110 H TESTED AT [place] [address] ([facility]) (test code = [place] 1538) [address] POCT-GLUCOSE [id number] 06:49:00 Test Item Value Reference Range Interpretation Comments POC-GLUCOSE METER 172 mg/dL 70-110 H TESTED AT [place] [address] ([facility]) (test code = [place] 1538) [address] [id number] 04:59:00 Test Item Value Reference Range Interpretation Comments PARTIAL THROMBOPLASTIN TIME 64.7 seconds 22.5-36.0 H ([facility]) (test code = 760) While on warfarin.PROTHROMBIN TIME/[id number] 04:57:00 Test Item Value Reference Range Interpretation Comments PROTIME ([facility]) (test code = 17.5 seconds 11.7-14.7 H 759) INR ([facility]) (test code = 370) 1.4 <=5.9 RECOMMENDED COUMADIN/WARFARIN INR THERAPY RANGESSTANDARD DOSE: 2.0 - 3.0 Includes: PROPHYLAXIS forvenous thrombosis, systemic embolization; TREATMENT for venous thrombosis and/or pulmonary embolus.HIGH RISK: Target INR is 2.5-3.5 for patients with mechanical heart valves.While on warfarin.[id number] 21:55:00 Test Item Value Reference Range Interpretation Comments PARTIAL THROMBOPLASTIN TIME 68.8 seconds 22.5-36.0 H ([facility]) (test code = 760) [id number] 13:54:00 Test Item Value Reference Range Interpretation Comments PARTIAL THROMBOPLASTIN TIME 51.7 seconds 22.5-36.0 H ([facility]) (test code = 760) POCT-GLUCOSE [id number] 11:56:00 Test Item Value Reference Range Interpretation Comments POC-GLUCOSE METER 101 mg/dL 70-110 TESTED AT [place] [address] ([facility]) (test code = [place] 1538) [address] POCT-GLUCOSE [id number] 07:58:00 Test Item Value Reference Range Interpretation Comments POC-GLUCOSE METER 111 mg/dL 70-110 H TESTED AT [place] [address] ([facility]) (test code = [place] 1538) [address] BASIC METABOLIC [id number] 05:35:00 Test Item Value Reference Range Interpretation [...] S NOT APPLICABLE FOR DIALYSIS PATIEN TS. [id number] 05:34:00 Test Item Value Reference Range Interpretation Comments PHOSPHORUS (BEAKER) (test code = 4.2 mg/dL 2.3-4.7 604) [id number] 05:34:00 Test Item Value Reference Range Interpretation Comments MAGNESIUM (BEAKER) (test code = 1.7 mg/dL 1.6-2.6 627) PROTHROMBIN [id number] 05:24:00 Test Item Value Reference Range Interpretation Comments PROTIME (BEAKER) (test code = 18.8 seconds 11.7-14.7 H 759) INR (BEAKER) (test code = 370) 1.6 <=5.9 RECOMMENDED COUMADIN/WARFARIN INR THERAPY RANGESSTANDARD DOSE: 2.0 - 3.0 Includes: PROPHYLAXIS forvenous thrombosis, systemic embolization; TREATMENT for venous thrombosis and/or pulmonary embolus.HIGH RISK: Target INR is 2.5-3.5 for patients with mechanical heart valves.[id number] 05:05:00 Test Item Value Reference Range Interpretation Comments PARTIAL THROMBOPLASTIN TIME 96.6 seconds 22.5-36.0 H (BEAKER) (test code = 760) CBC W/PLT COUNT & AUTO [id number] 04:54:00 Test Item Value Reference Range Interpretation [...] ABSOLUTE COUNT ([facility]) 0.02 K/ L 0.01-0.08 (test code = 417) IMMATURE GRANULOCYTES-RELATIVE 1 % 0-1 PERCENT ([facility]) (test code = 2801) OCCULT BLOOD, [id number] 22:44:00 Test Item Value Reference Range Interpretation Comments FECAL OCCULT BLOOD ([facility]) (test Positive Negative A code = 618) [id number] 21:14:00 Test Item Value Reference Range Interpretation Comments PARTIAL THROMBOPLASTIN TIME 69.1 seconds 22.5-36.0 H ([facility]) (test code = 760) POCT-GLUCOSE [id number] 20:49:00 Test Item Value Reference Range Interpretation Comments POC-GLUCOSE METER 160 mg/dL 70-110 H TESTED AT [place] [address] ([facility]) ([facility] = [facility] 1538) [address] POCT-GLUCOSE [id number] 17:59:00 Test Item Value Reference Range Interpretation Comments POC-GLUCOSE METER 128 mg/dL 70-110 H TESTED AT [place] [address] ([facility]) (test code = [facility] 1538) [address] POCT-GLUCOSE [id number] 13:31:00 Test Item Value Reference Range Interpretation Comments POC-GLUCOSE METER 70 mg/dL 70-110 TESTED AT [place] [address] ([facility]) (test code = [facility] [place] [address] 1538) [id number] 13:16:00 Test Item Value Reference Range Interpretation Comments PARTIAL THROMBOPLASTIN TIME 78.3 seconds 22.5-36.0 H ([facility]) (test code = 760) POCT-GLUCOSE [id number] 12:47:00 Test Item Value Reference Range Interpretation Comments POC-GLUCOSE METER 49 mg/dL 70-110 L TESTED AT [place] [address] ([facility]) (test code = [facility] [address] 1538) POCT-GLUCOSE [id number] 09:05:00 Test Item Value Reference Range Interpretation Comments POC-GLUCOSE METER 306 mg/dL 70-110 H TESTED AT [place] [address] ([facility]) (test code = [facility] [place] 1538) [address] OCCULT BLOOD, [id number] 06:52:00 Test Item Value Reference Range Interpretation Comments FECAL OCCULT BLOOD (BEAKER) (test Positive Negative A code = 618) [id number] 05:42:00 Test Item Value Reference Range Interpretation [...] 20-55 (test code = 2590) BASIC METABOLIC [id number] 03:53:00 Test Item Value Reference Range Interpretation [...] S NOT APPLICABLE FOR DIALYSIS PATIEN TS. [id number] 03:51:00 Test Item Value Reference Range Interpretation Comments PHOSPHORUS (BEAKER) (test code = 3.2 mg/dL 2.3-4.7 604) [id number] 03:51:00 Test Item Value Reference Range Interpretation Comments PARTIAL THROMBOPLASTIN TIME 122.0 seconds 22.5-36.0 H (BEAKER) (test code = 760) While on warfarin.PROTHROMBIN TIME/[id number] 03:48:00 Test Item Value Reference Range Interpretation Comments PROTIME (BEAKER) (test code = 16.3 seconds 11.7-14.7 H 759) INR (BEAKER) (test code = 370) 1.3 <=5.9 RECOMMENDED COUMADIN/WARFARIN INR THERAPY RANGESSTANDARD DOSE: 2.0 - 3.0 Includes: PROPHYLAXIS forvenous thrombosis, systemic embolization; TREATMENT for venous thrombosis and/or pulmonary embolus.HIGH RISK: Target INR is 2.5-3.5 for patients with mechanical heart valves.While on warfarin.[id number] 03:44:00 Test Item Value Reference Range Interpretation Comments MAGNESIUM (BEAKER) (test code = 1.7 mg/dL 1.6-2.6 627) CBC W/PLT COUNT & AUTO [id number] 03:38:00 Test Item Value Reference Range Interpretation [...] PERCENT (BEAKER) (test code = 2801) POCT-GLUCOSE [id number] 23:35:00 Test Item Value Reference Range Interpretation Comments POC-GLUCOSE METER 149 mg/dL 70-[address] [facility] 6720 [facility] (test code = [place] 1538) [address] [id number] 20:08:00 Test Item Value Reference Range Interpretation Comments PARTIAL THROMBOPLASTIN TIME 55.6 seconds 22.5-36.0 H (BEAKER) (test code = 760) [id number] 15:10:00 Test Item Value Reference Range Interpretation Comments PARTIAL THROMBOPLASTIN TIME 81.4 seconds 22.5-36.0 H (BEAKER) (test code = 760) POCT-GLUCOSE [id number] 11:58:00 Test Item Value Reference Range Interpretation Comments POC-GLUCOSE METER 124 mg/dL 70-[address] [facility] 6720 ([facility]) (test code = [place] 1538) [address] RAD, CHEST, 1 VIEW, NON [id number] 08:59:00Reason for exam:->s/p mvrShould this be performed at the bedside?->YesFINAL REPORT Chest one view compared to January 24 Discussion: Left IJ line, atrial appendage clip, cardiac valve replacement noted. Mild interstitial congestion. No gross effusion or pneumothorax. IMPRESSIONS: No significant change Signed: Rhea Colindres Verified Date/Time:01/29/2018 08:59:39 Reading Location: [facility] Radiology Reading Room POCT-GLUCOSE [id number] 07:41:00 Test Item Value Reference Range Interpretation Comments POC-GLUCOSE METER 113 mg/dL 70-[address] [facility] 6720 (BEAKER) (test code = [place] 1538) [address] [id number] 07:23:00 Test Item Value Reference Range Interpretation Comments PARTIAL THROMBOPLASTIN TIME 89.8 seconds 22.5-36.0 H (BEAKER) (test code = 760) BASIC METABOLIC [id number] 06:05:00 Test Item Value Reference Range Interpretation [...] NOT APPLICABLE FOR DIALYSIS PATIEN TS. PROTHROMBIN [id number] 05:59:00 Test Item Value Reference Range Interpretation Comments PROTIME (BEAKER) (test code = 17.0 seconds 11.7-14.7 H 759) INR (BEAKER) (test code = 370) 1.4 <=5.9 RECOMMENDED COUMADIN/WARFARIN INR THERAPY RANGESSTANDARD DOSE: 2.0 - 3.0 Includes: PROPHYLAXIS forvenous thrombosis, systemic embolization; TREATMENT for venous thrombosis and/or pulmonary embolus.HIGH RISK: Target INR is 2.5-3.5 for patients with mechanical heart valves.While on warfarin.[id number] 05:56:00 Test Item Value Reference Range Interpretation Comments PHOSPHORUS (BEAKER) (test code = 5.3 mg/dL 2.3-4.7 H 604) [id number] 05:56:00 Test Item Value Reference Range Interpretation Comments MAGNESIUM (BEAKER) (test code = 1.9 mg/dL 1.6-2.6 627) CBC W/PLT COUNT & AUTO [id number] 05:38:00 Test Item Value Reference Range Interpretation [...] 0-1 PERCENT (BEAKER) (test code = 2801) [id number] 01:07:00 Test Item Value Reference Range Interpretation Comments PARTIAL THROMBOPLASTIN TIME 63.5 seconds 22.5-36.0 H (BEAKER) (test code = 760) [id number] 18:24:00 Test Item Value Reference Range Interpretation Comments PARTIAL THROMBOPLASTIN TIME 56.6 seconds 22.5-36.0 H (BEAKER) (test code = 760) POCT-GLUCOSE [id number] 18:14:00 Test Item Value Reference Range Interpretation Comments POC-GLUCOSE METER 101 mg/dL 70-[address] [facility] (test code = [place] 1538) [address] [id number] 13:57:00 Test Item Value Reference Range Interpretation Comments PARTIAL THROMBOPLASTIN TIME 122.3 seconds 22.5-36.0 H (BEAKER) (test code = 760) POCT-GLUCOSE [id number] 13:08:00 Test Item Value Reference Range Interpretation Comments POC-GLUCOSE METER 105 mg/dL 70-[address] [facility] 6720 (BEAKER) (test code = FOSTER VU [place] 1538) [address] BASIC METABOLIC [id number] 04:31:00 Test Item Value Reference Range Interpretation [...] S NOT APPLICABLE FOR DIALYSIS PATIEN TS. [id number] 04:28:00 Test Item Value Reference Range Interpretation Comments PHOSPHORUS (BEAKER) (test code = 3.9 mg/dL 2.3-4.7 604) [id number] 04:28:00 Test Item Value Reference Range Interpretation Comments MAGNESIUM (BEAKER) (test code = 1.7 mg/dL 1.6-2.6 627) HEPATIC FUNCTION [id number] 04:28:00 Test Item Value Reference Range Interpretation [...] (test code = 33 U/L 6-55 347) [id number] 04:20:00 Test Item Value Reference Range Interpretation Comments PARTIAL THROMBOPLASTIN TIME 106.2 seconds 22.5-36.0 H (BEAKER) (test code = 760) While on warfarin.PROTHROMBIN [id number] 04:15:00 Test Item Value Reference Range Interpretation [...] valves.While on warfarin.CBC W/PLT COUNT & AUTO [id number] 04:05:00 Test Item Value Reference Range Interpretation [...] PERCENT (BEAKER) (test code = 2801) POCT-GLUCOSE [id number] 00:29:00 Test Item Value Reference Range Interpretation Comments POC-GLUCOSE METER 119 mg/dL 70-110 H TEST[facility] [place] [address] [facility] (test code = [facility] 1538) [address] [id number] 00:24:00 Test Item Value Reference Range Interpretation Comments PARTIAL THROMBOPLASTIN TIME 72.4 seconds 22.5-36.0 H (BEAKER) (test code = 760) POCT-GLUCOSE [id number] 18:33:00 Test Item Value Reference Range Interpretation Comments POC-GLUCOSE METER 158 mg/dL 70-110 H TESTED AT [place] [address] (BEAKER) (test code = [facility] 1538) [address] [id number] 18:22:00 Test Item Value Reference Range Interpretation Comments PARTIAL THROMBOPLASTIN TIME 78.6 seconds 22.5-36.0 H (BEAKER) (test code = 760) POCT-GLUCOSE [id number] 12:20:00 Test Item Value Reference Range Interpretation Comments POC-GLUCOSE METER 110 mg/dL 70-110 TEST[facility] AT [place] [address] [facility] (test code = [place] 1538) [address] [id number] 12:04:00 Test Item Value Reference Range Interpretation Comments PARTIAL THROMBOPLASTIN TIME 98.0 seconds 22.5-36.0 H (BEAKER) (test code = 760) [id number] 04:11:00 Test Item Value Reference Range Interpretation [...] heart valves.While on warfarin.While on warfarin. PROTHROMBIN [id number] 04:10:00 Test Item Value Reference Range Interpretation Comments PROTIME (BEAKER) (test code = 15.2 seconds 11.7-14.7 H 759) INR (BEAKER) (test code = 370) 1.2 <=5.9 RECOMMENDED COUMADIN/WARFARIN INR THERAPY RANGESSTANDARD DOSE: 2.0 - 3.0 Includes: PROPHYLAXIS forvenous thrombosis, systemic embolization; TREATMENT for venous thrombosis and/or pulmonary embolus.HIGH RISK: Target INR is 2.5-3.5 for patients with mechanical heart valves.BASIC METABOLIC [id number] 03:53:00 Test Item Value Reference Range Interpretation [...] PATIEN TS. CBC W/PLT COUNT & AUTO [id number] 03:50:00 Test Item Value Reference Range Interpretation [...] H PERCENT (BEAKER) (test code = 2801) [id number] 03:45:00 Test Item Value Reference Range Interpretation Comments PHOSPHORUS (BEAKER) (test code = 4.7 mg/dL 2.3-4.7 604) [id number] 03:45:00 Test Item Value Reference Range Interpretation Comments MAGNESIUM (BEAKER) (test code = 2.0 mg/dL 1.6-2.6 627) HEPATIC FUNCTION [id number] 03:45:00 Test Item Value Reference Range Interpretation [...] (test code = 36 U/L 6-55 347) [id number] 22:16:00 Test Item Value Reference Range Interpretation Comments PARTIAL THROMBOPLASTIN TIME 60.7 seconds 22.5-36.0 H (BEAKER) (test code = 760) POCT-GLUCOSE [id number] 18:32:00 Test Item Value Reference Range Interpretation Comments POC-GLUCOSE METER 125 mg/dL 70-[address] [facility] 6720 (BEAKER) (test code = [place]ER [place] 1538) [address] CBC (HEMOGRAM ONLY)2018-01-26 17:21:00 Test Item Value [...] (BEAKER) (test code = 413) BASIC METABOLIC [id number] 07:16:00 Test Item Value Reference Range Interpretation [...] S NOT APPLICABLE FOR DIALYSIS PATIEN TS. [id number] 07:13:00 Test Item Value Reference Range Interpretation Comments PHOSPHORUS (BEAKER) (test code = 4.3 mg/dL 2.3-4.7 604) [id number] 07:13:00 Test Item Value Reference Range Interpretation Comments MAGNESIUM (BEAKER) (test code = 2.0 mg/dL 1.6-2.6 627) HEPATIC FUNCTION [id number] 07:13:00 Test Item Value Reference Range Interpretation [...] (test code = 37 U/L 6-55 347) [id number] 07:12:00 Test Item Value Reference Range Interpretation [...] PERCENT (BEAKER) (test code = 2801) BLOOD [id number] 00:00:00 Test Item Value Reference Range Interpretation Comments CULTURE (BEAKER) (test No growth in 5 days code = 1095) BLOOD [id number] 00:00:00 Test Item Value Reference Range Interpretation Comments CULTURE (BEAKER) (test No growth in 5 days code = 1095) POCT-GLUCOSE [id number] 23:37:00 Test Item Value Reference Range Interpretation Comments POC-GLUCOSE METER 87 mg/dL 70-110 TESTED AT [place] [address] (BEAKER) [facility] [address] 1538) [id number] 23:06:00 Test Item Value Reference Range Interpretation Comments PARTIAL THROMBOPLASTIN TIME 81.8 seconds 22.5-36.0 H (BEAKER) (test code = 760) POCT-GLUCOSE [id number] 20:42:00 Test Item Value Reference Range Interpretation Comments POC-GLUCOSE METER 193 mg/dL 70-110 H TEST[facility] AT [place] [address] [facility] (test code = [facility] 1538) [address] HEMOGLOBIN AND [id number] 17:40:00 Test Item Value Reference Range Interpretation Comments HEMOGLOBIN (BEAKER) (test code = 8.4 GM/DL 13.7-17.5 L 410) HEMATOCRIT (BEAKER) (test code = 25.4 % 40.1-51.0 L 411) [id number] 13:06:00 Test Item Value Reference Range Interpretation Comments PARTIAL THROMBOPLASTIN TIME 61.4 seconds 22.5-36.0 H (BEAKER) (test code = 760) POCT-GLUCOSE [id number] 12:56:00 Test Item Value Reference Range Interpretation Comments POC-GLUCOSE METER 116 mg/dL 70-110 H TESTED AT [place] [address] ([facility] (test code = [facility] 1538) [address] [id number] 06:43:00 Test Item Value Reference Range Interpretation [...] 37 % 20-55 (test code = 2590) [id number] 05:32:00 Test Item Value Reference Range Interpretation Comments PARTIAL THROMBOPLASTIN TIME 63.7 seconds 22.5-36.0 H (BEAKER) (test code = 760) BASIC METABOLIC [id number] 05:03:00 Test Item Value Reference Range Interpretation [...] APPLICABLE FOR DIALYSIS PATIEN TS. HEPATIC FUNCTION [id number] 05:00:00 Test Item Value Reference Range Interpretation [...] (test code = 41 U/L 6-55 347) [id number] 04:40:00 Test Item Value Reference Range Interpretation [...] 0-0 (BEAKER) (test code = 413) POCT-GLUCOSE [id number] 00:30:00 Test Item Value Reference Range Interpretation Comments POC-GLUCOSE METER 112 mg/dL 70-[address] [facility] 6720 (BEAKER) (test code = [place] 1538) [address] CBC W/PLT COUNT & AUTO [id number] 19:16:00 Test Item Value Reference Range Interpretation [...] PERCENT (BEAKER) (test code = 2801) POCT-GLUCOSE [id number] 18:27:00 Test Item Value Reference Range Interpretation Comments POC-GLUCOSE METER 102 mg/dL 70-[address] [facility] 67 ([facility]) (test code = [facility] 1538) [address] POCT-GLUCOSE [id number] 13:01:00 Test Item Value Reference Range Interpretation Comments POC-GLUCOSE METER 119 mg/dL 70-110 H TESTED AT [place] [address] ([facility]) (test code = [facility] 1538) [address] RAD, CHEST, 1 VIEW, NON [id number] 10:59:00Reason for exam:->ptxShould this be performed at [...] MDReport Verified Date/Time: 01/24/2018 10:59:29 Reading Location: [facility] Diagnostic Imaging Reading Room - [place] [address] BRONCHIAL CULTURE + GRAM STAIN 2018-01-24 08:53:00 Test Item Value Reference Range Interpretation Comments CULTURE (BEAKER) 2+ Normal respiratory (test code = 1095) pete present GRAM STAIN RESULT 4+ White blood cells (BEAKER) (test code = seen 1123) GRAM STAIN RESULT No organisms seen (BEAKER) (test code = 54960) POCT-GLUCOSE [id number] 06:28:00 Test Item Value Reference Range Interpretation Comments POC-GLUCOSE METER 119 mg/dL 70-[address] [facility] 6720 (BEAKER) (test code = [place] 1538) [address] BASIC METABOLIC [id number] 04:41:00 Test Item Value Reference Range Interpretation [...] WBC 0-0 (BEAKER) (test code = 413) [id number] 04:21:00 Test Item Value Reference Range Interpretation Comments MAGNESIUM (BEAKER) (test code = 2.0 mg/dL 1.6-2.6 627) HEPATIC FUNCTION [id number] 04:21:00 Test Item Value Reference Range Interpretation [...] = 36 U/L 6-55 347) Specimen slightly [id number] 04:13:00 Test Item Value Reference Range Interpretation Comments PARTIAL THROMBOPLASTIN TIME 72.1 seconds 22.5-36.0 H (BEAKER) (test code = 760) BLOOD GAS, [id number] 04:13:00 Test Item Value Reference Range Interpretation [...] (test code = 1819) 100.0 % POCT-GLUCOSE [id number] 00:08:00 Test Item Value Reference Range Interpretation Comments POC-GLUCOSE METER 150 mg/dL 70-110 H TESTED AT [place] [address] ([facility]) (test code = [facility] [place] 1538) [address] POCT-GLUCOSE [id number] 18:45:00 Test Item Value Reference Range Interpretation Comments POC-GLUCOSE METER 162 mg/dL 70-110 H TESTED AT [place] [address] ([facility]) (test [facility] = [facility] 1538) [address] POCT-GLUCOSE [id number] 13:14:00 Test Item Value Reference Range Interpretation Comments POC-GLUCOSE METER 176 mg/dL 70-110 H TESTED AT [place] [address] ([facility]) (test code = [facility] [place] 1538) [address] POCT-GLUCOSE [id number] 10:44:00 Test Item Value Reference Range Interpretation Comments POC-GLUCOSE METER 146 mg/dL 70-110 H TESTED AT [place] [address] ([facility]) (test code = [facility] [place] 1538) [address] BLOOD GAS, [id number] 10:32:00 Test Item Value Reference Range Interpretation [...] 40.0 % RAD, CHEST, 1 VIEW, NON [id number] 09:14:00Reason for exam:->ptxShould this be performed at [...] MDReport Verified Date/Time: 01/23/2018 09:14:48 Reading Location: [facility] Radiology Reading Room Electronically sign ed by: KYLE ROME M.D. on 01/23/2018 09:14 AMBLOOD [id number] 08:09:00 Test Item Value Reference Range Interpretation Comments CULTURE (BEAKER) A From Aerobi c Bottle (test code = Only Lactob[place]il [place] 1095) species GRAM STAIN From aerobic RESULT (BEAKER) bottle only: gram (test code = positive rods 1123) NOT DETECTEDPanel is negative for [employer]Fire BCID-detectable organisms. Please refer to traditional culture and sensitivity results as they become available.Other organisms and resistance markers not contained in this PCR panel cannot be excluded and follow-up of traditional culture results is required. This sample was tested at the [facility] Clinical Microbiology Laboratory using the [employer]firDiana FilmArray Blood Culture ID Panel. This test is FDA cleared for in vitro diagnostic use and has been verified and approved by the [facility] Clinical Microbiology laboratory for clinical use. Reference Range: Not DetectedBLOOD GAS, [id number] 04:45:00 Test Item Value Reference Range Interpretation [...] code = 1819) 40.0 % BASIC METABOLIC [id number] 04:39:00 Test Item Value Reference Range Interpretation [...] APPLICABLE FOR DIALYSIS PATIEN TS. Specimen slightly [id number] 04:35:00 Test Item Value Reference Range Interpretation Comments MAGNESIUM (BEAKER) (test code = 1.8 mg/dL 1.6-2.6 627) HEPATIC FUNCTION [id number] 04:35:00 Test Item Value Reference Range Interpretation [...] = 40 U/L 6-55 347) Specimen slightly [id number] 04:18:00 Test Item Value Reference Range Interpretation [...] WBC 0-0 (test code = 413) POCT-GLUCOSE [id number] 00:52:00 Test Item Value Reference Range Interpretation Comments POC-GLUCOSE METER 145 mg/dL 70-[address] [facility] 6720 ([facility]) (test code = F[facility]ER [place] 1538) [address] BLOOD [id number] 00:00:00 Test Item Value Reference Range Interpretation Comments CULTURE (BEAKER) (test No growth in 5 days code = 1095) POCT-GLUCOSE [id number] 18:17:00 Test Item Value Reference Range Interpretation Comments POC-GLUCOSE METER 97 mg/dL 70-110 TESTED AT [place] [address] (BEAKER) (test code = F[facility] Paul [facility] [address] 1538) POCT-GLUCOSE [id number] 13:26:00 Test Item Value Reference Range Interpretation Comments POC-GLUCOSE METER 138 mg/dL 70-110 H TESTED AT [place] [address] (BEAKER) (test code = [facility] Humberto [facility] 1538) [address] BLOOD GAS, [id number] 10:32:00 Test Item Value Reference Range Interpretation [...] (test code = 1819) 40.0 % POCT-GLUCOSE [id number] 06:21:00 Test Item Value Reference Range Interpretation Comments POC-GLUCOSE METER 138 mg/dL 70-110 H TESTED AT [place] [address] (BEAKER) (test code = [facility] 1538) [address] BASIC METABOLIC [id number] 04:25:00 Test Item Value Reference Range Interpretation [...] APPLICABLE FOR DIALYSIS PATIEN TS. Specimen slightly [id number] 04:24:00 Test Item Value Reference Range Interpretation Comments MAGNESIUM (BEAKER) (test code = 2.1 mg/dL 1.6-2.6 627) HEPATIC FUNCTION [id number] 04:24:00 Test Item Value Reference Range Interpretation [...] /100 WBC 0-0 (test code = 413) [id number] 04:07:00 Test Item Value Reference Range Interpretation Comments PARTIAL THROMBOPLASTIN TIME 80.2 seconds 22.5-36.0 H (BEAKER) (test code = 760) BLOOD GAS, [id number] 04:06:00 Test Item Value Reference Range Interpretation [...] 40.0 % RAD, CHEST, 1 VIEW, NON [id number] 03:32:00Reason for exam:->ptxShould this be performed at [...] Muniz Verified Date/Time: 01/22/2018 03:32:38 Reading Location: [address] Body Reading Room POCT-GLUCOSE [id number] 00:43:00 Test Item Value Reference Range Interpretation Comments POC-GLUCOSE METER 102 mg/dL 70-110 TESTED AT [place] [address] ([facility]) (test code = F[facility]ER Paul [facility] 1538) [address] [id number] 17:31:00 Test Item Value Reference Range Interpretation Comments PARTIAL THROMBOPLASTIN TIME 65.0 seconds 22.5-36.0 H ([facility]) (test code = 760) POCT-GLUCOSE [id number] 17:24:00 Test Item Value Reference Range Interpretation Comments POC-GLUCOSE METER 171 mg/dL 70-[address] [facility] 67 ([facility]) (test code = F[facility]ER Paul [facility] 1538) [address] POCT-GLUCOSE [id number] 13:01:00 Test Item Value Reference Range Interpretation Comments POC-GLUCOSE METER 144 mg/dL 70-110 H TESTED AT [place] [address] ([facility]) (test code = F[facility]ER Paul [facility] 1538) [address] [id number] 11:12:00 Test Item Value Reference Range Interpretation Comments PARTIAL THROMBOPLASTIN TIME 67.9 seconds 22.5-36.0 H ([facility]) (test code = 760) RAD, CHEST, 1 VIEW, NON [id number] 08:01:00Reason for exam:->ptxShould this be performed at [...] MDReport Verified Date/Time: 01/21/2018 08:01:07 Reading Location: [facility] Radiology Reading Room POCT-GLUCOSE [id number] 06:50:00 Test Item Value Reference Range Interpretation Comments POC-GLUCOSE METER 149 mg/dL 70-[address] [facility] 6720 (BEAKER) (test code = [place] Paul [place] 1538) [address] CBC (HEMOGRAM ONLY)2018-01-21 04:20:00 Test Item Value [...] /100 WBC 0-0 (test code = 413) [id number] 04:03:00 Test Item Value Reference Range Interpretation Comments PARTIAL THROMBOPLASTIN TIME 51.2 seconds 22.5-36.0 H (BEAKER) (test code = 760) BASIC METABOLIC [id number] 04:01:00 Test Item Value Reference Range Interpretation [...] APPLICABLE FOR DIALYSIS PATIEN TS. Specimen moderately [id number] 03:59:00 Test Item Value Reference Range Interpretation Comments MAGNESIUM (BEAKER) (test code = 2.0 mg/dL 1.6-2.6 627) HEPATIC FUNCTION [id number] 03:59:00 Test Item Value Reference Range Interpretation [...] U/L 6-55 347) Specimen moderately ictericVANCOMYCIN LEVEL, [id number] 03:57:00 Test Item Value Reference Range Interpretation Comments VANCOMYCIN RANDOM (BEAKER) (test 18.3 ug/mL code = 523) Reference Range: No NormalsOXYGEN SATURATION, [id number] 03:32:00 Test Item Value Reference Range Interpretation Comments O2 SATURATION (MEASURED) (BEAKER) 86.3 % (test code = 1455) BLOOD GAS, [id number] 03:30:00 Test Item Value Reference Range Interpretation [...] (test code = 1819) 40.0 % POCT-GLUCOSE [id number] 23:43:00 Test Item Value Reference Range Interpretation Comments POC-GLUCOSE METER 143 mg/dL 70-110 H TESTED AT [place] [address] ([facility]) (test code = [place] 1538) [address] BLOOD [id number] 18:00:00 Test Item Value Reference Range Interpretation Comments CULTURE (BEAKER) (test No growth in 5 days code = 1095) BLOOD [id number] 18:00:00 Test Item Value Reference Range Interpretation Comments CULTURE (BEAKER) (test No growth in 5 days code = 1095) POCT-GLUCOSE [id number] 16:32:00 Test Item Value Reference Range Interpretation Comments POC-GLUCOSE METER 185 mg/dL 70-[address] [facility] 6720 ([facility]) (test code = [facility] 1538) [address] MISCELLANEOUS LAB [id number] 15:04:00 Test Item Value Reference Range Interpretation Comments SCAN RESULT (test code = 0275746) Result comments: NOT DETECTED Panel is negative for [employer] BCID-detectable organisms. Please refer to traditional culture and sensitivity results as they become available. Other organisms and resistance markers not contained in this PCR panel cannot be excluded and follow-up of traditional culture results is required. This sample was tested at the [facility] Clinical Microbiology Laboratory using the [employer] Film[employer] Blood Culture ID Panel. This test is FDA cleared for in vitro diagnostic use and hasbeen verified and approved by the [facility] Clinical Microbiology laboratory for clinical use. ReferenceRange: Not Detected POCT-GLUCOSE [id number] 12:25:00 Test Item Value Reference Range Interpretation Comments POC-GLUCOSE METER 116 mg/dL 70-110 H TESTED AT [place] [address] ([facility]) (test code = F[facility]ER [facility] 1538) [address] RAD, CHEST, 1 VIEW, NON [id number] 06:38:00Reason for exam:->pl effusionShould this be performed [...] MDReport Verified Date/Time: 01/20/2018 06:38:33 Reading Location: [facility] C013Y CT Body Reading Room POCT-GLUCOSE [id number] 05:54:00 Test Item Value Reference Range Interpretation Comments POC-GLUCOSE METER 231 mg/dL 70-[address] [facility] 67 ([facility]) (test code = [facility] 1538) [address] VANCOMYCIN LEVEL, [id number] 04:23:00 Test Item Value Reference Range Interpretation Comments VANCOMYCIN RANDOM ([facility]) (test 25.8 ug/mL code = 523) Reference Range: No [id number] 04:17:00 Test Item Value Reference Range Interpretation Comments MAGNESIUM (BEAKER) (test code = 2.0 mg/dL 1.6-2.6 627) HEPATIC FUNCTION [id number] 04:17:00 Test Item Value Reference Range Interpretation [...] 6-55 H 347) Specimen moderately ictericBASIC METABOLIC [id number] 04:17:00 Test Item Value Reference Range Interpretation [...] APPLICABLE FOR DIALYSIS PATIEN TS. Specimen moderately [id number] 04:05:00 Test Item Value Reference Range Interpretation Comments PARTIAL THROMBOPLASTIN TIME 69.7 seconds 22.5-36.0 H (BEAKER) (test code = 760) CBC W/PLT COUNT & AUTO [id number] 03:49:00 Test Item Value Reference Range Interpretation [...] IMMATURE GRANULOCYTES-RELATIVE 3 % 0-1 H PERCENT ([facility]) (test code = 2801) OXYGEN SATURATION, [id number] 03:48:00 Test Item Value Reference Range Interpretation Comments O2 SATURATION (MEASURED) ([facility]) 84.1 % (test code = 1455) POCT-GLUCOSE [id number] 23:14:00 Test Item Value Reference Range Interpretation Comments POC-GLUCOSE METER 248 mg/dL 70-110 H TESTED AT [place] [address] ([facility]) (test code = [facility] 1538) [address] POCT-GLUCOSE [id number] 18:56:00 Test Item Value Reference Range Interpretation Comments POC-GLUCOSE METER 213 mg/dL 70-110 H TESTED AT [place] [address] ([facility]) (test code = [facility] 1538) [address] POCT-GLUCOSE [id number] 14:06:00 Test Item Value Reference Range Interpretation Comments POC-GLUCOSE METER 210 mg/dL 70-110 H TESTED AT [place] [address] ([facility]) (test code = [facility] 1538) [address] SPUTUM CULTURE + GRAM [id number] 13:45:00 Test Item Value Reference Range Interpretation Comments CULTURE (AKER) 4+ Normal respiratory (test code = 1095) pete present GRAM STAIN RESULT 4+ WBCs (BEAKER) (test code = 1123) GRAM STAIN RESULT 0-5 epithelial cells (BEAKER) (test code = 49988) GRAM STAIN RESULT 3+ gram negative rods (BEAKER) (test code = 28700) GRAM STAIN RESULT 2+ gram positive cocci (BEAKER) (test code = in pairs and clusters 339996) [id number] 12:37:00 Test Item Value Reference Range Interpretation Comments PARTIAL THROMBOPLASTIN TIME 74.3 seconds 22.5-36.0 H ([facility]) (test code = 760) CBC W/PLT COUNT & AUTO [id number] 10:52:00 Test Item Value Reference Range Interpretation [...] H (test code = 413) VANCOMYCIN LEVEL, [id number] 05:41:00 Test Item Value Reference Range Interpretation Comments VANCOMYCIN RANDOM (BEAKER) (test 27.9 ug/mL code = 523) Reference Range: No NormalsBASIC METABOLIC [id number] 05:39:00 Test Item Value Reference Range Interpretation [...] APPLICABLE FOR DIALYSIS PATIEN TS. Specimen moderately [id number] 05:36:00 Test Item Value Reference Range Interpretation Comments MAGNESIUM (BEAKER) (test code = 2.0 mg/dL 1.6-2.6 627) [id number] 05:36:00 Test Item Value Reference Range Interpretation Comments PHOSPHORUS (BEAKER) (test code = 3.9 mg/dL 2.3-4.7 604) HEPATIC FUNCTION [id number] 05:36:00 Test Item Value Reference Range Interpretation [...] 6-55 H 347) Specimen moderately ictericOXYGEN SATURATION, [id number] 05:33:00 Test Item Value Reference Range Interpretation [...] WBC 0-0 H (test code = 413) [id number] 05:24:00 Test Item Value Reference Range Interpretation Comments PARTIAL THROMBOPLASTIN TIME 68.1 seconds 22.5-36.0 H (BEAKER) (test code = 760) RAD, CHEST, 1 VIEW, NON [id number] 04:41:00Reason for exam:->pl effusionShould this be performed at the bedside?->YesFINAL REPORT CLINICAL INDICATION: Support lines. Comparison: 01/18/2018 The ca rdiomediastinal contours are stable. Central pulmonary vascular congestion and bilateral parenchymalopacities are unchanged. There is no pneumothorax. Support lines are stable. Signed: Kellen Parra MDReport Verified Date/Time: 01/19/2018 04:41:27 Reading Location: [address] Reading Room APTT 2018-01-19 00:38:00 Test Item Value Reference Range Interpretation Comments PARTIAL THROMBOPLASTIN TIME 45.5 seconds 22.5-36.0 H (BEAKER) (test code = 760) POCT-GLUCOSE [id number] 00:21:00 Test Item Value Reference Range Interpretation Comments POC-GLUCOSE METER 189 mg/dL 70-[address] [facility] 67 ([facility]) (test code = [facility]ER [facility] 1538) [address] POCT-GLUCOSE [id number] 23:34:00 Test Item Value Reference Range Interpretation Comments POC-GLUCOSE METER 162 mg/dL 70-110 H TESTED AT [place] [address] ([facility]) (test code = FOSTER Paul [facility] 1538) [address] POCT-GLUCOSE [id number] 18:09:00 Test Item Value Reference Range Interpretation Comments POC-GLUCOSE METER 172 mg/dL 70-110 H TESTED AT [place] [address] ([facility]) (test code = FOSTER Paul [facility] 1538) [address] RAD, ABDOMEN/KUB, 1 VIEW [id number] 17:36:00Reason for exam:->ileusShould this be performed at the bedside?->YesFINAL REPORT Comparison: 01/17/2018 TECHNIQUE: Frontal image of the abdomen FINDINGS: There is a nonspecific bowel gas pattern. Tip of nasogastric projects in the distal stomach. No gross free intraperitoneal air. No acute skeletal abnormality. Signed: Kyle Rome Verified Date/Time: 01/18/2018 17:36:02 Reading Location: [address] Transitional Reading Room [id number] 17:10:00 Test Item Value Reference Range Interpretation Comments PARTIAL THROMBOPLASTIN TIME 27.8 seconds 22.5-36.0 ([facility]) (test code = 760) Prior to initiating heparinPOCT-GLUCOSE [id number] 15:22:00 Test Item Value Reference Range Interpretation Comments POC-GLUCOSE METER 126 mg/dL 70-110 H TESTED AT [place] [address] ([facility]) (test code = [facility]ER Paul [facility] 1538) [address] [id number] 13:02:00 Test Item Value Reference Range Interpretation Comments PHOSPHORUS ([facility]) (test code = 3.8 mg/dL 2.3-4.7 604) BASIC METABOLIC [id number] 13:02:00 Test Item Value Reference Range Interpretation [...] FOR DIALYSIS PATIEN TS. Specimen moderately ictericPOCT-GLUCOSE [id number] 12:11:00 Test Item Value Reference Range Interpretation Comments POC-GLUCOSE METER 113 mg/dL 70-[address] [facility] 6720 (AKER) (test code = FOSTER Paul [place] 1538) [address] CBC W/PLT COUNT & AUTO [id number] 12:03:00 Test Item Value Reference Range Interpretation [...] = 413) RAD, CHEST, 1 VIEW, NON [id number] 09:44:00Reason for exam:->pl effusionShould this be performed [...] MDReport Verified Date/Time: 01/18/2018 09:44:26 Reading Location: [address] Transitional Reading Room SPUTUM CULTURE + GRAM [id number] 08:09:00 Test Item Value Reference Range Interpretation Comments CULTURE (BEAKER) 3+ Normal respiratory (test code = 1095) pete present GRAM STAIN RESULT 4+ WBCs (BEAKER) (test code = 1123) GRAM STAIN RESULT 0-5 epithelial cells (BEAKER) (test code = 05923) GRAM STAIN RESULT No organisms seen (BEAKER) (test code = 43133) POCT-GLUCOSE [id number] 07:52:00 Test Item Value Reference Range Interpretation Comments POC-GLUCOSE METER 146 mg/dL 70-[address] [facility] 6720 (BEAKER) (test code = [place] V[place] 1538) [address] POCT-GLUCOSE [id number] 06:30:00 Test Item Value Reference Range Interpretation Comments POC-GLUCOSE METER 135 mg/dL 70-[address] [facility] 6720 (BEAKER) (test code = FOSTER Paul [place] 1538) [address] POCT-GLUCOSE [id number] 06:30:00 Test Item Value Reference Range Interpretation Comments POC-GLUCOSE METER 130 mg/dL 70-[address] [facility] 6720 (BEAKER) (test code = [place] 1538) [address] [id number] 03:56:00 Test Item Value Reference Range Interpretation Comments PHOSPHORUS (BEAKER) (test code = 3.1 mg/dL 2.3-4.7 604) [id number] 03:56:00 Test Item Value Reference Range Interpretation Comments MAGNESIUM (BEAKER) (test code = 2.0 mg/dL 1.6-2.6 627) HEPATIC FUNCTION [id number] 03:56:00 Test Item Value Reference Range Interpretation [...] 6-55 H 347) Specimen moderately ictericVANCOMYCIN LEVEL, [id number] 03:53:00 Test Item Value Reference Range Interpretation Comments VANCOMYCIN RANDOM (BEAKER) (test 18.0 ug/mL code = 523) Reference Range: No [id number] 03:48:00 Test Item Value Reference Range Interpretation Comments CALCIUM (BEAKER) (test code = 697) 8.1 mg/dL 8.4-10.2 L CALCIUM, [id number] 03:34:00 Test Item Value Reference Range Interpretation Comments CALCIUM IONIZED (BEAKER) (test 1.06 mmol/L 1.12-1.27 L code = 698) PH, BLOOD ([facility]) (test code = 7.38 1810) OXYGEN SATURATION, [id number] 03:33:00 Test Item Value Reference Range Interpretation Comments O2 SATURATION (MEASURED) ([facility]) 85.8 % (test code = 1455) POCT-GLUCOSE [id number] 03:26:00 Test Item Value Reference Range Interpretation Comments POC-GLUCOSE METER 144 mg/dL 70-110 H TESTED AT [place] [address] ([facility]) (test code = [facility]ER Paul [facility] 1538) [address] POCT-GLUCOSE [id number] 03:26:00 Test Item Value Reference Range Interpretation Comments POC-GLUCOSE METER 163 mg/dL 70-110 H TESTED AT [place] [address] ([facility]) (test code = [facility] Humberto [facility] 1538) [address] POCT-GLUCOSE [id number] 01:04:00 Test Item Value Reference Range Interpretation Comments POC-GLUCOSE METER 159 mg/dL 70-110 H TESTED AT [place] [address] ([facility]) (test code = [facility] 1538) [address] POCT-GLUCOSE [id number] 00:12:00 Test Item Value Reference Range Interpretation Comments POC-GLUCOSE METER 132 mg/dL 70-110 H TESTED AT [place] [address] ([facility]) (test code = [facility] 1538) [address] LACTIC ACID, ARTERIAL, WHOLE [id number] 23:54:00 Test Item Value Reference Range Interpretation Comments LACTATE BLOOD ARTERIAL (2) 0.7 mmol/L 0.5-2.2 ([facility]) (test code = 2874) Effective 01/04/2016: Units/Reference Range ChangeNew: 0.5-2.2 mmol/L Previous: 5-20 mg/dLSpecimen moderately ictericPOTASSIUM-STAT [id number] 23:30:00 Test Item Value Reference Range Interpretation Comments POTASSIUM ([facility]) (test code = 4.0 meq/L 3.6-5.5 379) BLOOD GAS, [id number] 23:30:00 Test Item Value Reference Range Interpretation Comments PH ARTERIAL ([facility]) (test code = 7.45 7.35-7.45 383) PCO2 ARTERIAL ([facility]) (test code 42 mmHg 35-45 = [...] code = 1819) 50.0 % SODIUM NA-STAT [id number] 23:30:00 Test Item Value Reference Range Interpretation Comments SODIUM (BEAKER) (test code = 381) 134 meq/L 135-148 L GLUCOSE-STAT [id number] 23:30:00 Test Item Value Reference Range Interpretation Comments GLUCOSE RANDOM (BEAKER) (test code 138 mg/dL 70-110 H = 652) HGB/HCT (H&H) - STAT [id number] 23:30:00 Test Item Value Reference Range Interpretation Comments HEMOGLOBIN (BEAKER) (test code = 9.0 g/dL 13.0-16.8 L 410) HEMATOCRIT (BEAKER) (test code = 26.0 % 40.0-50.0 L 411) CALCIUM, [id number] 23:30:00 Test Item Value Reference Range Interpretation Comments CALCIUM IONIZED (BEAKER) (test 1.04 mmol/L 1.12-1.27 L code = 698) PH, BLOOD (BEAKER) (test code = 7.48 1810) OXYGEN SATURATION, [id number] 23:28:00 Test Item Value Reference Range Interpretation Comments O2 SATURATION (MEASURED) (BEAKER) 82.0 % (test code = 1455) POCT-GLUCOSE [id number] 21:35:00 Test Item Value Reference Range Interpretation Comments POC-GLUCOSE METER 99 mg/dL 70-[address] [facility] 6720 (BEAKER) (test code = [place] [address] 1538) POCT-GLUCOSE [id number] 21:35:00 Test Item Value Reference Range Interpretation Comments POC-GLUCOSE METER 111 mg/dL 70-[address] [facility] 6720 (BEAKER) (test code = [place] 1538) [address] RAD, CHEST, 1 VIEW, NON [id number] 17:08:00Reason for exam:->LIJ placment CVCShould this be [...] [place] Verified Date/Time: 01/17/2018 17:08:24 Reading Location: [facility] Radiology Reading Room GLUCOSE-STAT [id number] 16:33:00 Test Item Value Reference Range Interpretation Comments GLUCOSE RANDOM (BEAKER) (test code 147 mg/dL 70-110 H = 652) POTASSIUM-STAT [id number] 16:32:00 Test Item Value Reference Range Interpretation Comments POTASSIUM (BEAKER) (test code = 4.7 meq/L 3.6-5.5 379) [id number] 15:03:00 Test Item Value Reference Range Interpretation Comments PROCALCITONIN (BEAKER) (test code 5.33 ng/mL <0.05 H = 3036) SEPSIS RISK (ng/mL)Low: 0.05-0.50Intermediate: 0.51-2.00High: >=2.01CT BRAIN WITHOUT IV CONTRAST - [id number] 13:50:00Reason for exam:->altered mental statusFINAL REPORT CT [...] should be excluded clinically. Signed: Dung Granda [facility] Verified Date/Time: 01/17/2018 13:50:42 Reading Location: [facility] Radiology Reading Room CALCIUM, [id number] 12:36:00 Test Item Value Reference Range Interpretation Comments CALCIUM IONIZED (BEAKER) (test 1.09 mmol/L 1.12-1.27 L code = 698) PH, BLOOD (BEAKER) (test code = 7.36 1810) GLUCOSE-STAT [id number] 12:36:00 Test Item Value Reference Range Interpretation Comments GLUCOSE RANDOM (BEAKER) (test code 147 mg/dL 70-110 H = 652) POTASSIUM-STAT [id number] 12:36:00 Test Item Value Reference Range Interpretation Comments POTASSIUM (BEAKER) (test code = 4.7 meq/L 3.6-5.5 379) RAD, ABDOMEN/KUB, 1 VIEW [id number] 08:42:00Reason for exam:->ileusShould this be performed at [...] MDReport Verified Date/Time: 01/17/2018 08:42:09 Reading Location: [facility] Radiology Reading Room CBC W/PLT COUNT & AUTO [id number] 08:18:00 Test Item Value Reference Range Interpretation [...] (test code = 413) HEPARIN ASSAY - [id number] 08:07:00 Test Item Value Reference Range Interpretation Comments UNFRACTIONATED HEPARIN-ANTI 10A < u/ml 0.30-0.70 L (BEAKER) (test code = 1606) Recommendations for Monitoring Unfractionated Heparin Therapeutic Range: 0.3- 0.7 u/mL with continuous IV infusionPOCT-GLUCOSE [id number] 06:09:00 Test Item Value Reference Range Interpretation Comments POC-GLUCOSE METER 143 mg/dL 70-[address] [facility] 6720 (BEAKER) (test code = [place] 1538) [address] RAD, CHEST, 1 VIEW, NON [id number] 04:43:00Reason for exam:->acute respiratory insufficiencyShould this be [...] MDReport Verified Date/Time: 01/17/2018 04:43:34 Reading Location: [facility] [id number] Body Reading Room OXYGEN SATURATION, [id number] 04:13:00 Test Item Value Reference Range Interpretation Comments O2 SATURATION (MEASURED) (BEAKER) 85.7 % (test code = 1455) [id number] 04:06:00 Test Item Value Reference Range Interpretation Comments PHOSPHORUS (BEAKER) (test code = 3.1 mg/dL 2.3-4.7 604) [id number] 04:06:00 Test Item Value Reference Range Interpretation Comments MAGNESIUM (BEAKER) (test code = 2.1 mg/dL 1.6-2.6 627) COMPREHENSIVE METABOLIC [id number] 04:06:00 Test Item Value Reference Range Interpretation [...] DIALYSIS PATIEN TS. Specimen moderately ictericHEPATIC FUNCTION [id number] 04:06:00 Test Item Value Reference Range Interpretation [...] 347) Specimen moderately ictericLACTIC ACID, ARTERIAL, WHOLE [id number] 03:59:00 Test Item Value Reference Range Interpretation Comments LACTATE BLOOD 0.5 mmol/L 0.5-2.2 Specimen sligh tly ARTERIAL (2) (BEAKER) hemoly zed (test code = 2874) Effective 01/04/2016: Units/Reference Range ChangeNew: 0.5-2.2 mmol/L Previous: 5-20 mg/dLSpecimen moderately ictericBLOOD GAS, [id number] 03:58:00 Test Item Value Reference Range Interpretation [...] (test code = 1819) 40.0 % CALCIUM, [id number] 03:58:00 Test Item Value Reference Range Interpretation Comments CALCIUM IONIZED (BEAKER) (test 1.14 mmol/L 1.12-1.27 code = 698) PH, BLOOD (BEAKER) (test code = 7.41 1810) POCT-GLUCOSE [id number] 02:41:00 Test Item Value Reference Range Interpretation Comments POC-GLUCOSE METER 144 mg/dL 70-110 H TESTED AT [place] [address] ([facility]) (test code = F[facility]ER Paul [facility] 1538) [address] POCT-GLUCOSE [id number] 00:30:00 Test Item Value Reference Range Interpretation Comments POC-GLUCOSE METER 171 mg/dL 70-[address] [facility] 6720 ([facility]) (test code = FOSTER Paul [facility] 1538) [address] POTASSIUM-STAT [id number] 00:08:00 Test Item Value Reference Range Interpretation Comments POTASSIUM (BEAKER) (test code = 4.5 meq/L 3.6-5.5 379) POCT-GLUCOSE [id number] 23:30:00 Test Item Value Reference Range Interpretation Comments POC-GLUCOSE METER 159 mg/dL 70-[address] [facility] 67 [facility] (test code = [facility] 1538) [address] POCT-GLUCOSE [id number] 21:08:00 Test Item Value Reference Range Interpretation Comments POC-GLUCOSE METER 194 mg/dL 70-110 H TESTED AT [place] [address] (BEAKER) (test code = [facility] 1538) [address]651 POCT-GLUCOSE [id number] 21:08:00 Test Item Value Reference Range Interpretation Comments POC-GLUCOSE METER 230 mg/dL 70-110 H TESTED AT [place] [address] (BEAKER) (test code = [facility] 1538) [address] CALCIUM, [id number] 19:23:00 Test Item Value Reference Range Interpretation Comments CALCIUM IONIZED (BEAKER) (test 1.14 mmol/L 1.12-1.27 code = 698) PH, BLOOD (BEAKER) (test code = 7.36 1810) POTASSIUM-STAT [id number] 19:23:00 Test Item Value Reference Range Interpretation Comments POTASSIUM (BEAKER) (test code = 5.1 meq/L 3.6-5.5 379) [id number] 17:27:00 Test Item Value Reference Range Interpretation Comments PHOSPHORUS (BEAKER) (test code = 2.2 mg/dL 2.3-4.7 L 604) [id number] 17:27:00 Test Item Value Reference Range Interpretation Comments MAGNESIUM (BEAKER) (test code = 2.1 mg/dL 1.6-2.6 627) PH, [id number] 17:03:00 Test Item Value Reference Range Interpretation Comments PH ARTERIAL (BEAKER) (test code = 383) 7.39 7.35-7.45 POCT-GLUCOSE [id number] 16:43:00 Test Item Value Reference Range Interpretation Comments POC-GLUCOSE METER 95 mg/dL 70-110 TESTED AT [place] [address] (BEAKER) (test code = [facility] [address] 1538) POCT-GLUCOSE [id number] 14:41:00 Test Item Value Reference Range Interpretation Comments POC-GLUCOSE METER 134 mg/dL 70-[address] [facility] 67 ([facility]) (test code = F[facility]ER Paul [facility] 1538) [address] RAD, ABDOMEN/KUB, 1 VIEW [id number] 13:16:00Reason for exam:- >constipationShould this be performed [...] MDReport Verified Date/Time: 01/16/2018 13:16:27 Reading Location: [facility] Reading Room Electronically signed by: KAY WALTER on01/16/2018 01:16 PMCALCIUM, [id number] 12:38:00 Test Item Value Reference Range Interpretation Comments CALCIUM IONIZED ([facility]) (test 1.14 mmol/L 1.12-1.27 code = 698) PH, BLOOD ([facility]) (test code = 7.40 1810) POCT-GLUCOSE [id number] 12:29:00 Test Item Value Reference Range Interpretation Comments POC-GLUCOSE METER 127 mg/dL 70-[address] [facility] 6720 ([facility]) (test code = [facility]ER [facility] 1538) [address] POCT-GLUCOSE [id number] 10:34:00 Test Item Value Reference Range Interpretation Comments POC-GLUCOSE METER 130 mg/dL 70-[address] [facility] 6720 ([facility]) (test code = MARIA GME Humberto [facility] 1538) [address] POCT-GLUCOSE [id number] 09:10:00 Test Item Value Reference Range Interpretation Comments POC-GLUCOSE METER 151 mg/dL 70-110 H TESTED AT [place] [address] ([facility]) (test code = [facility] 1538) [address] HEPARIN ASSAY - [id number] 09:00:00 Test Item Value Reference Range Interpretation [...] H (test code = 413) OXYGEN SATURATION, [id number] 08:30:00 Test Item Value Reference Range Interpretation Comments O2 SATURATION (MEASURED) (BEAKER) 87.1 % (test code = 1455) RAD, CHEST, 1 VIEW, NON [id number] 08:11:00Reason for exam:->acute respiratory insufficiencyShould this be performed at the bedside?->YesFINAL REPORT CLINICAL HISTORY: acute respiratory insufficiency TECHNIQUE: 1 view of the chest. COMPARISON: 01/15/2018 IMPRESSION: The Elgin-Moni catheter has been removed. The supporting lines and tubes are otherwise unchanged. There is no pneumothorax. Mild bilateral perihilar lung opacities have decreased. The cardiomediastinal silhouette is magnified by technique with sternotomy wires. Signed: Lorna Slade Verified Date/Time: 01/16/2018 08:11:02 Reading Location: [facility] Radiology Reading Room POCT- GLUCOSE [id number] 06:43:00 Test Item Value Reference Range Interpretation Comments POC-GLUCOSE METER 107 mg/dL 70-110 TESTED AT [place] [address] ([facility]) (test code = [place] 1538) [address] U/S, ABDOMINAL, [id number] 05:25:00Abdomen limited area? Add comment if clarification [...] Body Reading Room IC ACID, ARTERIAL, WHOLE [id number] 04:06:00 Test Item Value Reference Range Interpretation Comments LACTATE BLOOD ARTERIAL (2) 0.6 mmol/L 0.5-2.2 (BEAKER) (test code = 2874) Effective 01/04/2016: Units/Reference Range ChangeNew: 0.5-2.2 mmol/L Previous: 5-20 mg/dLSpecimen moderately [id number] 04:00:00 Test Item Value Reference Range Interpretation Comments PHOSPHORUS (BEAKER) (test code = 2.2 mg/dL 2.3-4.7 L 604) [id number] 04:00:00 Test Item Value Reference Range Interpretation Comments MAGNESIUM (BEAKER) (test code = 2.0 mg/dL 1.6-2.6 627) [id number] 04:00:00 Test Item Value Reference Range Interpretation Comments CALCIUM (BEAKER) (test code = 697) 8.5 mg/dL 8.4-10.2 COMPREHENSIVE METABOLIC [id number] 04:00:00 Test Item Value Reference Range Interpretation [...] DIALYSIS PATIEN TS. Specimen moderately ictericHEPATIC FUNCTION [id number] 04:00:00 Test Item Value Reference Range Interpretation [...] 6-55 H 347) Specimen moderately ictericBLOOD GAS, [id number] 03:51:00 Test Item Value Reference Range Interpretation [...] (test code = 1819) 60.0 % PROTHROMBIN [id number] 03:51:00 Test Item Value Reference Range Interpretation Comments PROTIME ([facility]) (test code = 15.2 seconds 11.7-14.7 H 759) INR ([facility]) (test code = 370) 1.2 <=5.9 RECOMMENDED COUMADIN/WARFARIN INR THERAPY RANGESSTANDARD DOSE: 2.0 - 3.0 Includes: PROPHYLAXIS forvenous thrombosis, systemic embolization; TREATMENT for venous thrombosis and/or pulmonary embolus.HIGH RISK: Target INR is 2.5-3.5 for patients with mechanical heart valves.CALCIUM, [id number] 03:51:00 Test Item Value Reference Range Interpretation Comments CALCIUM IONIZED ([facility]) (test 1.17 mmol/L 1.12-1.27 code = 698) PH, BLOOD ([facility]) (test code = 7.42 1810) POCT-GLUCOSE [id number] 02:08:00 Test Item Value Reference Range Interpretation Comments POC-GLUCOSE METER 110 mg/dL 70-110 TESTED AT [place] [address] ([facility]) (test code = [place] [facility] 1538) [address] POCT-GLUCOSE [id number] 01:14:00 Test Item Value Reference Range Interpretation Comments POC-GLUCOSE METER 107 mg/dL 70-110 TESTED AT [place] [address] ([facility]) (test code = [place] [facility] 1538) 269[address] POCT-GLUCOSE [id number] 00:29:00 Test Item Value Reference Range Interpretation Comments POC-GLUCOSE METER 129 mg/dL 70-110 H TESTED AT [place] [address] ([facility]) (test code = [place] [facility] 1538) [address] POCT-GLUCOSE [id number] 23:07:00 Test Item Value Reference Range Interpretation Comments POC-GLUCOSE METER 152 mg/dL 70-110 H TESTED AT [place] [address] ([facility]) (test code = [place] [facility] 1538) 13740 POCT-GLUCOSE [id number] 22:09:00 Test Item Value Reference Range Interpretation Comments POC-GLUCOSE METER 171 mg/dL 70-110 H TESTED AT [place] [address] ([facility]) (test code = [place] [facility] 1538) [address] POCT-GLUCOSE [id number] 21:13:00 Test Item Value Reference Range Interpretation Comments POC-GLUCOSE METER 171 mg/dL 70-110 H TESTED AT [place] [address] ([facility]) (test code = [facility] [place] [facility] 1538) [address] CALCIUM, [id number] 20:50:00 Test Item Value Reference Range Interpretation Comments CALCIUM IONIZED ([facility]) (test 1.15 mmol/L 1.12-1.27 code = 698) PH, BLOOD ([facility]) (test code = 7.34 1810) POCT-GLUCOSE [id number] 20:21:00 Test Item Value Reference Range Interpretation Comments POC-GLUCOSE METER 206 mg/dL 70-110 H TESTED AT [place] [address] ([facility]) (test code = MARIA GME [place] 1538) [address]388 POCT-GLUCOSE [id number] 19:16:00 Test Item Value Reference Range Interpretation Comments POC-GLUCOSE METER 197 mg/dL 70-110 H TESTED AT [place] [address] ([facility]) (test code = [facility] Humberto [facility] 1538) [address] [id number] 17:15:00 Test Item Value Reference Range Interpretation Comments PHOSPHORUS ([facility]) (test code = 4.1 mg/dL 2.3-4.7 604) [id number] 17:15:00 Test Item Value Reference Range Interpretation Comments MAGNESIUM ([facility]) (test code = 1.9 mg/dL 1.6-2.6 627) EEG AWAKE AND [id number] 14:56:00For STAT EEG- after 5 PM weekdays, weekends and holidays, page the on-call EEG TechReason for exam:->AMSShould this be performed at the bedside?->YesDate(s) of EE01/15/2018DATE OF REPORT: 01/15/2018ACC: [id number] Number: [id number] Location: Inpatient ICUStart time: 13:18Stop time: 13:40ICD-10: R41.82CPT Code: 58398 HISTORY: 62 y/o man with hxof AFib, [...] Kwon MD, MSClinic al Neurophysiology/Epilepsy Attending HEPARIN [id number] 13:21:00 Test Item Value Reference Range Interpretation Comments HEPARIN ANTIBODY ([facility]) (test code Negative Negative = 646) HEPARIN ANTIBODY OD ([facility]) (test 0.076 <0.400 code = 2659) 4T TOTAL SCORE ([facility]) (test code = 5 6889) Probability of HIT based on scoring system: 6-8 = High probability; 4-5 = intermediate probability;0-3 = low probabilityPOCT-GLUCOSE [id number] 12:26:00 Test Item Value Reference Range Interpretation Comments POC-GLUCOSE METER 128 mg/dL 70-[address] [facility] 6720 (AKER) (test code = [place] 1538) [id number] FIBRIN SOLUBLE [id number] 11:02:00 Test Item Value Reference Range Interpretation Comments FIBRIN SOLUBLE MONOMER (BEAKER) Negative (test code = 1416) HEPARIN ASSAY - [id number] 10:20:00 Test Item Value Reference Range Interpretation Comments UNFRACTIONATED HEPARIN-ANTI 10A < u/ml 0.30-0.70 L (BEAKER) (test code = 1606) Recommendations for Monitoring Unfractionated Heparin Therapeutic Range: 0.3- 0.7 u/mL with continuous IV sjnpscutB-[id number] 10:14:00 Test Item Value Reference Range Interpretation [...] of thrombosis is within 95-100% range. GLUCOSE-STAT [id number] 10:03:00 Test Item Value Reference Range Interpretation Comments GLUCOSE RANDOM (BEAKER) (test code 151 mg/dL 70-110 H = 652) CALCIUM, [id number] 10:02:00 Test Item Value Reference Range Interpretation Comments CALCIUM IONIZED (BEAKER) (test 1.13 mmol/L 1.12-1.27 code = 698) PH, BLOOD (BEAKER) (test code = 7.36 1810) POTASSIUM-STAT [id number] 10:01:00 Test Item Value Reference Range Interpretation Comments POTASSIUM (BEAKER) (test code = 4.3 meq/L 3.6-5.5 379) CBC W/PLT COUNT & AUTO [id number] 07:43:00 Test Item Value Reference Range Interpretation [...] = 2801) RAD, CHEST, 1 VIEW, NON [id number] 04:00:00Reason for exam:->acute respiratory insufficiencyShould this be performed at the bedside?->Yes Addendum BeginsREPORT STATUS:A Correction: Comparison is made to previous dated 01/14/2018. Signed: Kellen Parar MDReport Verified Date/Time: 01/15/2018 04:00:43 Reading Location: [address] Reading RoomAddendum EndsFINAL REPORT CLINICAL ADEEL CATION: Respiratory insufficiency Comparison: 01/15/2018 The cardiomediastinal contours are stable. Central pulmonary vascular congestion and bilateral parenchymal opacities are unchanged. There is no pneumothorax. Support lines are stable. Signed: Kellen Parra MDReport Verified Date/Time: 01/15/201803:46:27 Reading Location: [address] Reading Room [id number] 03:36:00 Test Item Value Reference Range Interpretation Comments PHOSPHORUS (BEAKER) (test code = 2.7 mg/dL 2.3-4.7 604) [id number] 03:36:00 Test Item Value Reference Range Interpretation Comments MAGNESIUM (BEAKER) (test code = 2.0 mg/dL 1.6-2.6 627) COMPREHENSIVE METABOLIC [id number] 03:36:00 Test Item Value Reference Range Interpretation [...] DIALYSIS PATIEN TS. Specimen slightly ictericHEPATIC FUNCTION [id number] 03:36:00 Test Item Value Reference Range Interpretation [...] U/L 6-55 H 347) Specimen slightly ictericPROTHROMBIN TIME/[id number] 03:35:00 Test Item Value Reference Range Interpretation [...] mmol/L Previous: 5-20 mg/dLSpecimen slightly ictericBLOOD GAS, [id number] 03:29:00 Test Item Value Reference Range Interpretation [...] code = 1819) 40.0 % OXYGEN SATURATION, [id number] 03:26:00 Test Item Value Reference Range Interpretation Comments O2 SATURATION (MEASURED) (BEAKER) 72.5 % (test code = 1455) CALCIUM, [id number] 00:17:00 Test Item Value Reference Range Interpretation Comments CALCIUM IONIZED (BEAKER) (test 1.19 mmol/L 1.12-1.27 code = 698) PH, BLOOD (BEAKER) (test code = 7.36 1810) POCT-GLUCOSE [id number] 00:15:00 Test Item Value Reference Range Interpretation Comments POC-GLUCOSE METER 144 mg/dL 70-[address] [facility] 6720 (BEAKER) (test code = [place] 15[address]) [id number] POCT-GLUCOSE [id number] 22:43:00 Test Item Value Reference Range Interpretation Comments POC-GLUCOSE METER 98 mg/dL 70-[address] [facility] 6720 (BEAKER) ([facility] [address]) POCT-GLUCOSE [id number] 22:43:00 Test Item Value Reference Range Interpretation Comments POC-GLUCOSE METER 80 mg/dL 70-[address] [facility] 6720 (BEAKER) (test code = [place] [address] 1538) VANCOMYCIN LEVEL, [id number] 20:20:00 Test Item Value Reference Range Interpretation Comments VANCOMYCIN TROUGH (BEAKER) (test 20.1 ug/mL 10.0-20.0 H code = 522) Before vanc [id number] 16:52:00 Test Item Value Reference Range Interpretation Comments PHOSPHORUS (BEAKER) (test code = 1.7 mg/dL 2.3-4.7 L 604) [id number] 16:52:00 Test Item Value Reference Range Interpretation Comments MAGNESIUM (BEAKER) (test code = 2.3 mg/dL 1.6-2.6 627) [id number] 16:39:00 Test Item Value Reference Range Interpretation Comments AMMONIA (BEAKER) (test code = 348) 32 mol/L 18-72 PH, [id number] 16:01:00 Test Item Value Reference Range Interpretation Comments PH ARTERIAL (BEAKER) (test code = 383) 7.42 7.35-7.45 GLUCOSE-STAT [id number] 16:01:00 Test Item Value Reference Range Interpretation Comments GLUCOSE RANDOM (BEAKER) (test code = 95 mg/dL 70-110 652) POTASSIUM-STAT [id number] 16:01:00 Test Item Value Reference Range Interpretation Comments POTASSIUM (BEAKER) (test code = 4.3 meq/L 3.6-5.5 379) CALCIUM, [id number] 16:01:00 Test Item Value Reference Range Interpretation Comments CALCIUM IONIZED (BEAKER) (test 1.28 mmol/L 1.12-1.27 H code = 698) PH, BLOOD (BEAKER) (test code = 7.42 1810) CALCIUM, [id number] 12:19:00 Test Item Value Reference Range Interpretation Comments CALCIUM IONIZED (BEAKER) (test 1.36 mmol/L 1.12-1.27 H code = 698) PH, BLOOD (BEAKER) (test code = 7.41 1810) GLUCOSE-STAT [id number] 12:17:00 Test Item Value Reference Range Interpretation Comments GLUCOSE RANDOM (BEAKER) (test code = 94 mg/dL 70-110 652) POTASSIUM-STAT [id number] 12:17:00 Test Item Value Reference Range Interpretation Comments POTASSIUM (BEAKER) (test code = 4.3 meq/L 3.6-5.5 379) [id number] 11:34:00 Test Item Value Reference Range Interpretation Comments MAGNESIUM (BEAKER) (test code = 2.1 mg/dL 1.6-2.6 627) BASIC METABOLIC [id number] 11:34:00 Test Item Value Reference Range Interpretation [...] DIALYSIS PATIEN TS. Specimen slightly ictericHEPATIC FUNCTION [id number] 11:34:00 Test Item Value Reference Range Interpretation [...] 6-55 H 347) Specimen slightly ictericBLOOD GAS, [id number] 09:44:00 Test Item Value Reference Range Interpretation [...] (test code = 1819) 100.0 % GLUCOSE-STAT [id number] 09:42:00 Test Item Value Reference Range Interpretation Comments GLUCOSE RANDOM (BEAKER) (test code = 95 mg/dL 70-110 652) POTASSIUM-STAT [id number] 09:42:00 Test Item Value Reference Range Interpretation Comments POTASSIUM (BEAKER) (test code = 4.5 meq/L 3.6-5.5 379) CALCIUM, [id number] 09:38:00 Test Item Value Reference Range Interpretation Comments CALCIUM IONIZED (BEAKER) (test 1.26 mmol/L 1.12-1.27 code = 698) PH, BLOOD (BEAKER) (test code = 7.41 1810) HEPARIN ASSAY - [id number] 08:44:00 Test Item Value Reference Range Interpretation Comments UNFRACTIONATED HEPARIN-ANTI 10A < u/ml 0.30-0.70 L (BEAKER) (test code = 1606) Recommendations for Monitoring Unfractionated Heparin Therapeutic Range: 0.3- 0.7 u/mL with continuous IV infusionGLUCOSE-STAT [id number] 06:41:00 Test Item Value Reference Range Interpretation [...] (test 0.0 % 0.0-5.0 code = 1414) [id number] 05:05:00 Test Item Value Reference Range Interpretation Comments PHOSPHORUS (BEAKER) (test code = 2.5 mg/dL 2.3-4.7 604) [id number] 05:05:00 Test Item Value Reference Range Interpretation Comments MAGNESIUM (BEAKER) (test code = 2.1 mg/dL 1.6-2.6 627) HEPATIC FUNCTION [id number] 05:05:00 Test Item Value Reference Range Interpretation [...] 1266 U/L 6-55 H 347) Specimen slightly [id number] 05:05:00 Test Item Value Reference Range Interpretation Comments CALCIUM (BEAKER) (test code = 697) 9.0 mg/dL 8.4-10.2 LACTATE DEHYDROGENASE (LDH)2018-01-14 05:05:00 Test Item Value Reference Range Interpretation Comments LACTATE DEHYDROGENASE (BEAKER) (test 667 U/L 125-220 H code = 635) PROTHROMBIN [id number] 05:05:00 Test Item Value Reference Range Interpretation Comments PROTIME (BEAKER) (test code = 15.2 seconds 11.7-14.7 H 759) INR (BEAKER) (test code = 370) 1.2 <=5.9 RECOMMENDED COUMADIN/WARFARIN INR THERAPY RANGESSTANDARD DOSE: 2.0 - 3.0 Includes: PROPHYLAXIS forvenous thrombosis, systemic embolization; TREATMENT for venous thrombosis and/or pulmonary embolus.HIGH RISK: Target INR is 2.5-3.5 for patients with mechanical heart valves.[id number] 05:05:00 Test Item Value Reference Range Interpretation Comments FIBRINOGEN LEVEL (BEAKER) (test 280 mg/dl 225-434 code = 658) RAD, CHEST, 1 VIEW, NON [id number] 04:57:00Reason for exam:- >impella/ECMO/intubationShould this be performed at the bedside?->YesFINAL REPORT CLINICAL INDICATION: Support lines. Comparison: 01/13/2018 The cardiomediastinal contours are stable. Cardiac opacities may reflect atelectasis but pneumonitis should be excluded clinically. There is no pneumothorax. Support lines are stable. Signed: Kellen Parra MDReport Verified Date/Time: 01/14/2018 04:57:02 Reading Location: [address] Reading Room LACTIC ACID, ARTERIAL, WHOLE [id number] 04:55:00 Test Item Value Reference Range Interpretation [...] H (BEAKER) (test code = 413) CALCIUM, [id number] 04:39:00 Test Item Value Reference Range Interpretation Comments CALCIUM IONIZED (BEAKER) (test 1.20 mmol/L 1.12-1.27 code = 698) PH, BLOOD (BEAKER) (test code = 7.37 1810) OXYGEN SATURATION, [id number] 04:38:00 Test Item Value Reference Range Interpretation Comments O2 SATURATION (MEASURED) (BEAKER) 75.3 % (test code = 1455) BLOOD GAS, [id number] 04:37:00 Test Item Value Reference Range Interpretation [...] (test code = 1819) 40.0 % GLUCOSE-STAT [id number] 04:37:00 Test Item Value Reference Range Interpretation Comments GLUCOSE RANDOM (BEAKER) (test code 154 mg/dL 70-110 H = 652) GLUCOSE-STAT [id number] 02:52:00 Test Item Value Reference Range Interpretation Comments GLUCOSE RANDOM (BEAKER) (test code 179 mg/dL 70-110 H = 652) GLUCOSE-STAT [id number] 01:26:00 Test Item Value Reference Range Interpretation Comments GLUCOSE RANDOM (BEAKER) (test code 195 mg/dL 70-110 H = 652) [id number] 00:08:00 Test Item Value Reference Range Interpretation Comments POTASSIUM (BEAKER) (test code = 4.2 meq/L 3.5-5.1 379) [id number] 00:08:00 Test Item Value Reference Range Interpretation Comments GLUCOSE RANDOM (BEAKER) (test code 237 mg/dL 70-105 H = 652) CBC W/PLT COUNT & AUTO [id number] 22:28:00 Test Item Value Reference Range Interpretation [...] = 413) RAD, CHEST, 1 VIEW, NON [id number] 21:50:00Reason for exam:->chest tubes/intubationShould this be performed [...] MDReport Verified Date/Time: 01/13/2018 21:50:50 Reading Location: [address] Consult Reading Room THROMBOELASTOGRAPH (TEG)2018-01-13 21:45:00 [...] % 0.0-5.0 code = 1414) BASIC METABOLIC [id number] 21:35:00 Test Item Value Reference Range Interpretation [...] APPLICABLE FOR DIALYSIS PATIEN TS. Specimen slightly [id number] 21:06:00 Test Item Value Reference Range Interpretation Comments PHOSPHORUS (BEAKER) (test code = 3.7 mg/dL 2.3-4.7 604) [id number] 21:06:00 Test Item Value Reference Range Interpretation Comments MAGNESIUM (BEAKER) (test code = 2.0 mg/dL 1.6-2.6 627) LACTIC ACID, ARTERIAL, WHOLE [id number] 21:06:00 Test Item Value Reference Range Interpretation Comments LACTATE BLOOD ARTERIAL (2) 1.8 mmol/L 0.5-2.2 (BEAKER) (test code = 2874) Effective 01/04/2016: Units/Reference Range ChangeNew: 0.5-2.2 mmol/L Previous: 5-20 mg/dLSpecimen slightly [id number] 21:01:00 Test Item Value Reference Range Interpretation Comments PARTIAL THROMBOPLASTIN TIME 35.1 seconds 22.5-36.0 (BEAKER) (test code = 760) [id number] 21:00:00 Test Item Value Reference Range Interpretation Comments FIBRINOGEN LEVEL (BEAKER) (test 253 mg/dl 225-434 code = 658) PROTHROMBIN [id number] 20:59:00 Test Item Value Reference Range Interpretation Comments PROTIME (BEAKER) (test code = 16.4 seconds 11.7-14.7 H 759) INR (BEAKER) (test code = 370) 1.3 <=5.9 RECOMMENDED COUMADIN/WARFARIN INR THERAPY RANGESSTANDARD DOSE: 2.0 - 3.0 Includes: PROPHYLAXIS forvenous thrombosis, systemic embolization; TREATMENT for venous thrombosis and/or pulmonary embolus.HIGH RISK: Target INR is 2.5-3.5 for patients with mechanical heart valves.BLOOD GAS, [id number] 20:47:00 Test Item Value Reference Range Interpretation [...] (test code = 1819) 40.0 % GLUCOSE-STAT [id number] 20:47:00 Test Item Value Reference Range Interpretation Comments GLUCOSE RANDOM (BEAKER) (test code 235 mg/dL 70-110 H = 652) CALCIUM, [id number] 20:47:00 Test Item Value Reference Range Interpretation Comments CALCIUM IONIZED (BEAKER) (test 0.97 mmol/L 1.12-1.27 L code = 698) PH, BLOOD (BEAKER) (test code = 7.39 1810) HGB/HCT (H&H) - STAT [id number] 20:46:00 Test Item Value Reference Range Interpretation Comments HEMOGLOBIN (BEAKER) (test code = 7.7 g/dL 13.0-16.8 L 410) HEMATOCRIT (BEAKER) (test code = 23.0 % 40.0-50.0 L 411) POTASSIUM-STAT [id number] 20:46:00 Test Item Value Reference Range Interpretation Comments POTASSIUM (BEAKER) (test code = 3.4 meq/L 3.6-5.5 L 379) SODIUM NA-STAT [id number] 20:46:00 Test Item Value Reference Range Interpretation Comments SODIUM (BEAKER) (test code = 381) 133 meq/L 135-148 L OXYGEN SATURATION, [id number] 20:42:00 Test Item Value Reference Range Interpretation Comments O2 SATURATION (MEASURED) (BEAKER) 74.1 % (test code = 1455) BLOOD GAS, [id number] 18:58:00 Test Item Value Reference Range Interpretation [...] code = 1819) 100.0 % SODIUM NA-STAT [id number] 18:58:00 Test Item Value Reference Range Interpretation Comments SODIUM (BEAKER) (test code = 381) 131 meq/L 135-148 L POTASSIUM-STAT [id number] 18:58:00 Test Item Value Reference Range Interpretation Comments POTASSIUM (BEAKER) (test code = 3.4 meq/L 3.6-5.5 L 379) GLUCOSE-STAT [id number] 18:58:00 Test Item Value Reference Range Interpretation Comments GLUCOSE RANDOM (BEAKER) (test code 214 mg/dL 70-110 H = 652) HGB/HCT (H&H) - STAT [id number] 18:58:00 Test Item Value Reference Range Interpretation [...] % 0.0-5.0 code = 1414) BLOOD GAS, [id number] 18:11:00 Test Item Value Reference Range Interpretation [...] code = 1819) 97.0 % SODIUM NA-STAT [id number] 18:11:00 Test Item Value Reference Range Interpretation Comments SODIUM (BEAKER) (test code = 381) 132 meq/L 135-148 L GLUCOSE-STAT [id number] 18:11:00 Test Item Value Reference Range Interpretation Comments GLUCOSE RANDOM (BEAKER) (test code 200 mg/dL 70-110 H = 652) HGB/HCT (H&H) - STAT [id number] 18:11:00 Test Item Value Reference Range Interpretation Comments HEMOGLOBIN (BEAKER) (test code = 8.2 g/dL 13.0-16.8 L 410) HEMATOCRIT (BEAKER) (test code = 24.0 % 40.0-50.0 L 411) POTASSIUM-STAT [id number] 18:07:00 Test Item Value Reference Range Interpretation Comments POTASSIUM (BEAKER) (test code = 3.5 meq/L 3.6-5.5 L 379) [id number] 16:37:00 Test Item Value Reference Range Interpretation Comments PHOSPHORUS (BEAKER) (test code = 2.5 mg/dL 2.3-4.7 604) [id number] 16:37:00 Test Item Value Reference Range Interpretation Comments MAGNESIUM (BEAKER) (test code = 2.1 mg/dL 1.6-2.6 627) [id number] 16:29:00 Test Item Value Reference Range Interpretation [...] for patients with mechanical heart valves.BLOOD GAS, [id number] 16:16:00 Test Item Value Reference Range Interpretation [...] (test code = 1819) 40.0 % CALCIUM, [id number] 16:14:00 Test Item Value Reference Range Interpretation Comments CALCIUM IONIZED (BEAKER) (test 1.09 mmol/L 1.12-1.27 L code = 698) PH, BLOOD (BEAKER) (test code = 7.64 1810) GLUCOSE-STAT [id number] 16:12:00 Test Item Value Reference Range Interpretation Comments GLUCOSE RANDOM (BEAKER) (test code 182 mg/dL 70-110 H = 652) CALCIUM, [id number] 12:53:00 Test Item Value Reference Range Interpretation Comments CALCIUM IONIZED (BEAKER) (test 1.12 mmol/L 1.12-1.27 code = 698) PH, BLOOD (BEAKER) (test code = 7.51 1810) BLOOD GAS, [id number] 12:53:00 Test Item Value Reference Range Interpretation [...] 1819) 40.0 % HGB/HCT (H&H) - STAT [id number] 12:53:00 Test Item Value Reference Range Interpretation Comments HEMOGLOBIN (BEAKER) (test code = 8.3 g/dL 13.0-16.8 L 410) HEMATOCRIT (BEAKER) (test code = 24.0 % 40.0-50.0 L 411) GLUCOSE-STAT [id number] 12:53:00 Test Item Value Reference Range Interpretation Comments GLUCOSE RANDOM (BEAKER) (test code 185 mg/dL 70-110 H = 652) POTASSIUM-STAT [id number] 12:52:00 Test Item Value Reference Range Interpretation Comments POTASSIUM (BEAKER) (test code = 3.7 meq/L 3.6-5.5 379) CBC W/PLT COUNT & AUTO [id number] 11:04:00 Test Item Value Reference Range Interpretation [...] 0-0 H (test code = 413) POTASSIUM-STAT [id number] 10:49:00 Test Item Value Reference Range Interpretation Comments POTASSIUM (BEAKER) (test code = 3.8 meq/L 3.6-5.5 379) HEPARIN ASSAY - [id number] 09:55:00 Test Item Value Reference Range Interpretation Comments UNFRACTIONATED HEPARIN-ANTI 10A 0.14 u/ml 0.30-0.70 L (BEAKER) (test code = 1606) Recommendations for Monitoring Unfractionated Heparin Therapeutic Range: 0.3- 0.7 u/mL with continuous IV [id number] 09:54:00 Test Item Value Reference Range Interpretation Comments PARTIAL THROMBOPLASTIN TIME 57.6 seconds 22.5-36.0 H (BEAKER) (test code = 760) BLOOD GAS, [id number] 09:33:00 Test Item Value Reference Range Interpretation [...] (test code = 1819) 40.0 % GLUCOSE-STAT [id number] 09:33:00 Test Item Value Reference Range Interpretation Comments GLUCOSE RANDOM (BEAKER) (test code 192 mg/dL 70-110 H = 652) GLUCOSE-STAT [id number] 09:33:00 Test Item Value Reference Range Interpretation Comments GLUCOSE RANDOM (BEAKER) (test code 192 mg/dL 70-110 H = 652) CALCIUM, [id number] 09:32:00 Test Item Value Reference Range Interpretation Comments CALCIUM IONIZED (BEAKER) (test 1.15 mmol/L 1.12-1.27 code = 698) PH, BLOOD (BEAKER) (test code = 7.51 1810) BLOOD GAS, [id number] 07:23:00 Test Item Value Reference Range Interpretation [...] % 0.0-5.0 code = 1414) BLOOD GAS, [id number] 06:13:00 Test Item Value Reference Range Interpretation [...] code = 1819) 40.0 % BLOOD GAS, [id number] 05:13:00 Test Item Value Reference Range Interpretation [...] (BEAKER) (test code = 1819) 100.0 % [id number] 04:41:00 Test Item Value Reference Range Interpretation Comments PARTIAL THROMBOPLASTIN TIME 61.3 seconds 22.5-36.0 H (BEAKER) (test code = 760) RAD, CHEST, 1 VIEW, NON [id number] 04:38:00Reason for exam:- >impella/ECMO/intubationShould this be performed at the bedside?->YesFINAL REPORT CLINICAL INDICATION: Support lines. Comparison: 01/12/2018 The cardiomediastinal contours are stable. Central pulmonary vascular prominence and bilateral parenchymalopacities are previous. There is no pneumothorax. Support lines are stable. Signed: Kellen Parra MDReport Verified Date/Time: 01/13/2018 04:38:41 Reading Location: [address] Reading Room HEPATIC FUNCTION [id number] 04:25:00 Test Item Value Reference Range Interpretation [...] 2232 U/L 6-55 H 347) Specimen slightly [id number] 04:19:00 Test Item Value Reference Range Interpretation Comments PHOSPHORUS (BEAKER) (test code = 4.1 mg/dL 2.3-4.7 604) [id number] 04:19:00 Test Item Value Reference Range Interpretation Comments MAGNESIUM (BEAKER) (test code = 1.9 mg/dL 1.6-2.6 627) [id number] 04:19:00 Test Item Value Reference Range Interpretation Comments CALCIUM (BEAKER) (test code = 697) 8.6 mg/dL 8.4-10.2 BASIC METABOLIC [id number] 04:19:00 Test Item Value Reference Range Interpretation [...] 1658 U/L 125-220 H code = 635) [id number] 04:16:00 Test Item Value Reference Range Interpretation Comments FIBRINOGEN LEVEL (BEAKER) (test 299 mg/dl 225-434 code = 658) LACTIC ACID, ARTERIAL, WHOLE [id number] 04:16:00 Test Item Value Reference Range Interpretation Comments LACTATE BLOOD ARTERIAL (2) 0.8 mmol/L 0.5-2.2 (BEAKER) (test code = 2874) Effective 01/04/2016: Units/Reference Range ChangeNew: 0.5-2.2 mmol/L Previous: 5-20 mg/dLSpecimen slightly ictericPROTHROMBIN [id number] 04:15:00 Test Item Value Reference Range Interpretation Comments PROTIME (BEAKER) (test code = 15.8 seconds 11.7-14.7 H 759) INR (BEAKER) (test code = 370) 1.3 <=5.9 RECOMMENDED COUMADIN/WARFARIN INR THERAPY RANGESSTANDARD DOSE: 2.0 - 3.0 Includes: PROPHYLAXIS forvenous thrombosis, systemic embolization; TREATMENT for venous thrombosis and/or pulmonary embolus.HIGH RISK: Target INR is 2.5-3.5 for patients with mechanical heart valves.CALCIUM, [id number] 04:04:00 Test Item Value Reference Range Interpretation Comments CALCIUM IONIZED (BEAKER) (test 1.15 mmol/L 1.12-1.27 code = 698) PH, BLOOD (BEAKER) (test code = 7.33 1810) BLOOD GAS, [id number] 04:03:00 Test Item Value Reference Range Interpretation [...] (test code = 1819) 40.0 % PLATELET [id number] 03:58:00 Test Item Value Reference Range Interpretation Comments PLATELET COUNT (BEAKER) (test code 89 K/CU MM 150-450 L = 756) OXYGEN SATURATION, [id number] 03:57:00 Test Item Value Reference Range Interpretation Comments O2 SATURATION (MEASURED) (BEAKER) 79.4 % (test code = 1455) BLOOD GAS, [id number] 01:19:00 Test Item Value Reference Range Interpretation [...] (test code = 1819) 40.0 % GLUCOSE-STAT [id number] 01:19:00 Test Item Value Reference Range Interpretation Comments GLUCOSE RANDOM (BEAKER) (test code 177 mg/dL 70-110 H = 652) POTASSIUM-STAT [id number] 01:18:00 Test Item Value Reference Range Interpretation Comments POTASSIUM (BEAKER) (test code = 4.0 meq/L 3.6-5.5 379) CALCIUM, [id number] 01:17:00 Test Item Value Reference Range Interpretation [...] (test 0.0 % 0.0-5.0 code = 1414) [id number] 20:36:00 Test Item Value Reference Range Interpretation Comments POTASSIUM (BEAKER) (test code = 4.2 meq/L 3.5-5.1 379) [id number] 20:36:00 Test Item Value Reference Range Interpretation Comments MAGNESIUM (BEAKER) (test code = 1.8 mg/dL 1.6-2.6 627) [id number] 20:36:00 Test Item Value Reference Range Interpretation Comments PHOSPHORUS (BEAKER) (test code = 3.5 mg/dL 2.3-4.7 604) LACTIC ACID, ARTERIAL, WHOLE [id number] 20:33:00 Test Item Value Reference Range Interpretation Comments LACTATE BLOOD ARTERIAL (2) 0.8 mmol/L 0.5-2.2 (BEAKER) (test code = 2874) Effective 01/04/2016: Units/Reference Range ChangeNew: 0.5-2.2 mmol/L Previous: 5-20 mg/dLSpecimen slightly ictericBLOOD GAS, [id number] 20:20:00 Test Item Value Reference Range Interpretation [...] (test code = 1819) 40.0 % GLUCOSE-STAT [id number] 20:20:00 Test Item Value Reference Range Interpretation Comments GLUCOSE RANDOM (BEAKER) (test code 180 mg/dL 70-110 H = 652) [id number] 18:34:00 Test Item Value Reference Range Interpretation Comments GLUCOSE RANDOM (BEAKER) (test code 218 mg/dL 70-105 H = 652) BLOOD GAS, [id number] 18:18:00 Test Item Value Reference Range Interpretation [...] (BEAKER) (test code = 1819) 40.0 % [id number] 17:12:00 Test Item Value Reference Range Interpretation Comments PARTIAL THROMBOPLASTIN TIME 54.1 seconds 22.5-36.0 H (BEAKER) (test code = 760) [id number] 17:12:00 Test Item Value Reference Range Interpretation Comments FIBRINOGEN LEVEL (BEAKER) (test 285 mg/dl 225-434 code = 658) PROTHROMBIN [id number] 17:10:00 Test Item Value Reference Range Interpretation [...] ChangeNew: 0.5-2.2 mmol/L Previous: 5-20 mg/dLSpecimen slightly [id number] 17:01:00 Test Item Value Reference Range Interpretation Comments POTASSIUM (BEAKER) (test code = 4.5 meq/L 3.5-5.1 379) [id number] 17:01:00 Test Item Value Reference Range Interpretation Comments GLUCOSE RANDOM (BEAKER) (test code 239 mg/dL 70-105 H = 652) PLATELET [id number] 16:46:00 Test Item Value Reference Range Interpretation Comments PLATELET COUNT (BEAKER) (test code 86 K/CU MM 150-450 L = 756) BLOOD GAS, [id number] 16:36:00 Test Item Value Reference Range Interpretation [...] (test 37.0 C code = 1818) CALCIUM, [id number] 16:36:00 Test Item Value Reference Range Interpretation Comments CALCIUM IONIZED (BEAKER) (test 1.08 mmol/L 1.12-1.27 L code = 698) PH, BLOOD (BEAKER) (test code = 7.46 1810) [id number] 15:00:00 Test Item Value Reference Range Interpretation Comments POTASSIUM (BEAKER) (test code = 4.7 meq/L 3.5-5.1 379) [id number] 15:00:00 Test Item Value Reference Range Interpretation Comments GLUCOSE RANDOM (BEAKER) (test code 210 mg/dL 70-105 H = 652) BLOOD GAS, [id number] 14:42:00 Test Item Value Reference Range Interpretation [...] 40.0 % RAD, CHEST, 1 VIEW, NON [id number] 14:41:00Reason for exam:->chest tube insertionFINAL REPORT CHEST [...] MDReport Verified Date/Time: 01/12/2018 14:41:22 Reading Location: [facility] C013T Transitional Reading Room MBOELASTOGRAPH [...] (test 0.0 % 0.0-5.0 code = 1414) [id number] 11:23:00 Test Item Value Reference Range Interpretation [...] exclusion of thrombosis is within 95-100% range. [id number] 10:10:00 Test Item Value Reference Range Interpretation Comments MAGNESIUM (BEAKER) 2.1 mg/dL 1.6-2.6 Specimen slightly (test code = 627) hemolyzed [id number] 10:10:00 Test Item Value Reference Range Interpretation Comments PHOSPHORUS (BEAKER) 4.2 mg/dL 2.3-4.7 Specimen slightly (test code = 604) hemolyzed [id number] 10:10:00 Test Item Value Reference Range Interpretation Comments POTASSIUM (BEAKER) 5.0 meq/L 3.5-5.1 Specimen slightly (test code = 379) hemolyzed [id number] 10:10:00 Test Item Value Reference Range Interpretation Comments GLUCOSE RANDOM (BEAKER) (test code 204 mg/dL 70-105 H = 652) [id number] 10:07:00 Test Item Value Reference Range Interpretation Comments FIBRINOGEN LEVEL (BEAKER) (test 251 mg/dl 225-434 code = 658) ANTITHROMBIN [id number] 10:04:00 Test Item Value Reference Range Interpretation Comments ANTITHROMBIN III ACTIVITY (BEAKER) 46.0 % 80.0-120.0 L (test code = 711) [id number] 09:58:00 Test Item Value Reference Range Interpretation Comments PARTIAL THROMBOPLASTIN TIME 59.8 seconds 22.5-36.0 H (BEAKER) (test code = 760) PROTHROMBIN [id number] 09:57:00 Test Item Value Reference Range Interpretation Comments PROTIME (BEAKER) (test code = 19.3 seconds 11.7-14.7 H 759) INR (BEAKER) (test code = 370) 1.6 <=5.9 RECOMMENDED COUMADIN/WARFARIN INR THERAPY RANGESSTANDARD DOSE: 2.0 - 3.0 Includes: PROPHYLAXIS forvenous thrombosis, systemic embolization; TREATMENT for venous thrombosis and/or pulmonary embolus.HIGH RISK: Target INR is 2.5-3.5 for patients with mechanical heart valves.PLATELET [id number] 09:49:00 Test Item Value Reference Range Interpretation Comments PLATELET COUNT (BEAKER) (test code 94 K/CU MM 150-450 L = 756) BLOOD GAS, [id number] 09:47:00 Test Item Value Reference Range Interpretation [...] (test code = 1819) 40.0 % CALCIUM, [id number] 09:46:00 Test Item Value Reference Range Interpretation Comments CALCIUM IONIZED (BEAKER) (test 1.12 mmol/L 1.12-1.27 code = 698) PH, BLOOD (BEAKER) (test code = 7.47 1810) HEPARIN ASSAY - [id number] 08:21:00 Test Item Value Reference Range Interpretation Comments UNFRACTIONATED HEPARIN-ANTI 10A < u/ml 0.30-0.70 L (BEAKER) (test code = 1606) Recommendations for Monitoring Unfractionated Heparin Therapeutic Range: 0.3- 0.7 u/mL with continuous IV infusionLACTATE DEHYDROGENASE (LDH)2018-01-12 07:40:00 Test Item Value Reference Range Interpretation Comments LACTATE DEHYDROGENASE (BEAKER) (test 3247 U/L 125-220 H code = 635) [id number] 07:38:00 Test Item Value Reference Range Interpretation Comments MAGNESIUM (BEAKER) (test code = 2.3 mg/dL 1.6-2.6 627) [id number] 07:38:00 Test Item Value Reference Range Interpretation Comments GLUCOSE RANDOM (BEAKER) (test code 217 mg/dL 70-105 H = 652) LACTIC ACID, ARTERIAL, WHOLE [id number] 07:27:00 Test Item Value Reference Range Interpretation Comments LACTATE BLOOD ARTERIAL (2) 1.4 mmol/L 0.5-2.2 (BEAKER) (test code = 2874) Effective 01/04/2016: Units/Reference Range ChangeNew: 0.5-2.2 mmol/L Previous: 5-20 mg/dLSpecimen slightly ictericGLUCOSE-STAT [id number] 06:55:00 Test Item Value Reference Range Interpretation Comments GLUCOSE RANDOM (BEAKER) (test code 212 mg/dL 70-110 H = 652) BLOOD GAS, [id number] 06:55:00 Test Item Value Reference Range Interpretation [...] (test code = 1819) 40.0 % POTASSIUM-STAT [id number] 06:52:00 Test Item Value Reference Range Interpretation Comments POTASSIUM (BEAKER) (test code = 4.8 meq/L 3.6-5.5 379) BLOOD GAS, [id number] 06:43:00 Test Item Value Reference Range Interpretation [...] 100.0 % RAD, CHEST, 1 VIEW, NON [id number] 06:14:00Reason for exam:- >impella/ECMO/intubationShould this be performed [...] MDReport Verified Date/Time: 01/12/2018 06:14:29 Reading Location: [address] Transitional Reading Room LACTATE DEHYDROGENASE (LDH)2018-01-12 05:03:00 Test Item Value Reference Range Interpretation Comments LACTATE DEHYDROGENASE (BEAKER) (test 3014 U/L 125-220 H code = 635) HEPATIC FUNCTION [id number] 05:03:00 Test Item Value Reference Range Interpretation [...] 1544 U/L 6-55 H 347) Specimen slightly [id number] 05:01:00 Test Item Value Reference Range Interpretation Comments PHOSPHORUS (BEAKER) (test code = 5.0 mg/dL 2.3-4.7 H 604) [id number] 05:01:00 Test Item Value Reference Range Interpretation Comments MAGNESIUM (BEAKER) (test code = 2.1 mg/dL 1.6-2.6 627) [id number] 05:01:00 Test Item Value Reference Range Interpretation Comments CALCIUM (BEAKER) (test code = 697) 8.5 mg/dL 8.4-10.2 BASIC METABOLIC [id number] 05:01:00 Test Item Value Reference Range Interpretation [...] TS. Specimen slightly ictericLACTIC ACID, ARTERIAL, WHOLE [id number] 04:42:00 Test Item Value Reference Range Interpretation Comments LACTATE BLOOD ARTERIAL (2) 1.5 mmol/L 0.5-2.2 (BEAKER) (test code = 2874) Effective 01/04/2016: Units/Reference Range ChangeNew: 0.5-2.2 mmol/L Previous: 5-20 mg/dLSpecimen slightly [id number] 04:38:00 Test Item Value Reference Range Interpretation Comments FIBRINOGEN LEVEL (BEAKER) (test 252 mg/dl 225-434 code = 658) [id number] 04:38:00 Test Item Value Reference Range Interpretation Comments PARTIAL THROMBOPLASTIN TIME 54.6 seconds 22.5-36.0 H (BEAKER) (test code = 760) CBC W/PLT COUNT & AUTO [id number] 04:37:00 Test Item Value Reference Range Interpretation [...] PERCENT (BEAKER) (test code = 2801) PROTHROMBIN [id number] 04:37:00 Test Item Value Reference Range Interpretation Comments PROTIME (BEAKER) (test code = 19.9 seconds 11.7-14.7 H 759) INR (BEAKER) (test code = 370) 1.7 <=5.9 RECOMMENDED COUMADIN/WARFARIN INR THERAPY RANGESSTANDARD DOSE: 2.0 - 3.0 Includes: PROPHYLAXIS forvenous thrombosis, systemic embolization; TREATMENT for venous thrombosis and/or pulmonary embolus.HIGH RISK: Target INR is 2.5-3.5 for patients with mechanical heart valves.CALCIUM, [id number] 04:31:00 Test Item Value Reference Range Interpretation Comments CALCIUM IONIZED (BEAKER) (test 1.12 mmol/L 1.12-1.27 code = 698) PH, BLOOD (BEAKER) (test code = 7.42 1810) BLOOD GAS, [id number] 04:30:00 Test Item Value Reference Range Interpretation [...] (test code = 1819) 40.0 % PLATELET [id number] 04:23:00 Test Item Value Reference Range Interpretation Comments PLATELET COUNT (BEAKER) (test 110 K/CU MM 150-450 L code = 756) OXYGEN SATURATION, [id number] 04:14:00 Test Item Value Reference Range Interpretation Comments O2 SATURATION (MEASURED) (BEAKER) 79.7 % (test code = 1455) [id number] 02:54:00 Test Item Value Reference Range Interpretation Comments PARTIAL THROMBOPLASTIN TIME 134.3 seconds 22.5-36.0 H (BEAKER) (test code = 760) [id number] 02:25:00 Test Item Value Reference Range Interpretation Comments PARTIAL THROMBOPLASTIN TIME 94.0 seconds 22.5-36.0 H (BEAKER) (test code = 760) BLOOD GAS, [id number] 01:56:00 Test Item Value Reference Range Interpretation [...] (test code = 1819) 40.0 % GLUCOSE-STAT [id number] 01:53:00 Test Item Value Reference Range Interpretation Comments GLUCOSE RANDOM (BEAKER) (test code 201 mg/dL 70-110 H = 652) POTASSIUM-STAT [id number] 01:52:00 Test Item Value Reference Range Interpretation Comments POTASSIUM (BEAKER) (test code = 4.9 meq/L 3.6-5.5 379) LACTIC ACID, ARTERIAL, WHOLE [id number] 01:18:00 Test Item Value Reference Range Interpretation Comments LACTATE BLOOD ARTERIAL (2) 2.0 mmol/L 0.5-2.2 (BEAKER) (test code = 2874) Effective 01/04/2016: Units/Reference Range ChangeNew: 0.5-2.2 mmol/L Previous: 5-20 mg/dLSpecimen slightly [id number] 01:18:00 Test Item Value Reference Range Interpretation Comments POTASSIUM (BEAKER) (test code = 5.1 meq/L 3.5-5.1 379) [id number] 01:18:00 Test Item Value Reference Range Interpretation Comments GLUCOSE RANDOM (BEAKER) (test code 194 mg/dL 70-105 H = 652) PROTHROMBIN [id number] 01:15:00 Test Item Value Reference Range Interpretation Comments PROTIME (BEAKER) (test code = 21.2 seconds 11.7-14.7 H 759) INR (BEAKER) (test code = 370) 1.8 <=5.9 RECOMMENDED COUMADIN/WARFARIN INR THERAPY RANGESSTANDARD DOSE: 2.0 - 3.0 Includes: PROPHYLAXIS forvenous thrombosis, systemic embolization; TREATMENT for venous thrombosis and/or pulmonary embolus.HIGH RISK: Target INR is 2.5-3.5 for patients with mechanical heart valves.[id number] 01:15:00 Test Item Value Reference Range Interpretation Comments FIBRINOGEN LEVEL (BEAKER) (test 233 mg/dl 225-434 code = 658) PLATELET [id number] 01:01:00 Test Item Value Reference Range Interpretation Comments PLATELET COUNT (BEAKER) (test code 84 K/CU MM 150-450 L = 756) BLOOD GAS, [id number] 01:00:00 Test Item Value Reference Range Interpretation [...] (test code = 1819) 40.0 % CALCIUM, [id number] 01:00:00 Test Item Value Reference Range Interpretation [...] 0.0-5.0 (BEAKER) (test code = 1414) GLUCOSE-STAT [id number] 23:53:00 Test Item Value Reference Range Interpretation Comments GLUCOSE RANDOM (BEAKER) (test code 182 mg/dL 70-110 H = 652) BLOOD GAS, [id number] 23:52:00 Test Item Value Reference Range Interpretation [...] FIO2 (BEAKER) (test code = 1819) 40 [id number] 23:05:00 Test Item Value Reference Range Interpretation Comments PARTIAL THROMBOPLASTIN TIME > seconds 22.5-36.0 HH (BEAKER) (test code = 760) BLOOD GAS, [id number] 23:01:00 Test Item Value Reference Range Interpretation [...] (BEAKER) (test code = 1819) 100.0 % [id number] 22:46:00 Test Item Value Reference Range Interpretation Comments FIBRINOGEN LEVEL (BEAKER) (test 223 mg/dl 225-434 L code = 658) PROTHROMBIN [id number] 22:45:00 Test Item Value Reference Range Interpretation Comments PROTIME (BEAKER) (test code = 23.0 seconds 11.7-14.7 H 759) INR (BEAKER) (test code = 370) 2.0 <=5.9 RECOMMENDED COUMADIN/WARFARIN INR THERAPY RANGESSTANDARD DOSE: 2.0 - 3.0 Includes: PROPHYLAXIS forvenous thrombosis, systemic embolization; TREATMENT for venous thrombosis and/or pulmonary embolus.HIGH RISK: Target INR is 2.5-3.5 for patients with mechanical heart valves.BLOOD GAS, [id number] 22:22:00 Test Item Value Reference Range Interpretation [...] (test code = 1819) 40.0 % CALCIUM, [id number] 22:21:00 Test Item Value Reference Range Interpretation Comments CALCIUM IONIZED (BEAKER) (test 1.05 mmol/L 1.12-1.27 L code = 698) PH, BLOOD (BEAKER) (test code = 7.67 1810) PLATELET [id number] 22:21:00 Test Item Value Reference Range Interpretation Comments PLATELET COUNT (BEAKER) (test code 71 K/CU MM 150-450 L = 756) GLUCOSE-STAT [id number] 22:20:00 Test Item Value Reference Range Interpretation Comments GLUCOSE RANDOM (BEAKER) (test code 189 mg/dL 70-110 H = 652) POTASSIUM-STAT [id number] 22:19:00 Test Item Value Reference Range Interpretation [...] 2133 U/L 125-220 H code = 635) [id number] 20:55:00 Test Item Value Reference Range Interpretation Comments POTASSIUM (BEAKER) (test code = 5.4 meq/L 3.5-5.1 H 379) [id number] 20:55:00 Test Item Value Reference Range Interpretation Comments MAGNESIUM (BEAKER) (test code = 1.6 mg/dL 1.6-2.6 627) [id number] 20:55:00 Test Item Value Reference Range Interpretation Comments PHOSPHORUS (BEAKER) (test code = 2.9 mg/dL 2.3-4.7 604) GLUCOSE-STAT [id number] 20:31:00 Test Item Value Reference Range Interpretation Comments GLUCOSE RANDOM (BEAKER) (test code 166 mg/dL 70-110 H = 652) POTASSIUM-STAT [id number] 20:30:00 Test Item Value Reference Range Interpretation Comments POTASSIUM (BEAKER) (test code = 5.2 meq/L 3.6-5.5 379) BLOOD GAS, [id number] 20:30:00 Test Item Value Reference Range Interpretation [...] code = 1819) 40.0 % OXYGEN SATURATION, [id number] 18:46:00 Test Item Value Reference Range Interpretation Comments O2 SATURATION (MEASURED) (BEAKER) 81.5 % (test code = 1455) RAD, CHEST, 1 VIEW, NON [id number] 18:27:00Reason for exam:->impella/ECMO placementShould this be performed [...] MDReport Verified Date/Time: 01/11/2018 18:27:33 Reading Location: [address] Ortho Consult Reading Room [id number] 18:11:00 Test Item Value Reference Range Interpretation Comments PARTIAL THROMBOPLASTIN TIME > seconds 22.5-36.0 HH (BEAKER) (test code = 760) LACTATE DEHYDROGENASE (LDH)2018-01-11 18:09:00 Test Item Value Reference Range Interpretation Comments LACTATE DEHYDROGENASE 1590 U/L 125-220 H Specim en slightly (BEAKER) (test code = hemoly zed 635) BASIC METABOLIC [id number] 18:08:00 Test Item Value Reference Range Interpretation [...] S NOT APPLICABLE FOR DIALYSIS PATIEN TS. [id number] 17:54:00 Test Item Value Reference Range Interpretation Comments MAGNESIUM (BEAKER) 1.8 mg/dL 1.6-2.6 Specimen slightly (test code = 627) hemolyzed [id number] 17:54:00 Test Item Value Reference Range Interpretation Comments PHOSPHORUS (BEAKER) 4.6 mg/dL 2.3-4.7 Specimen slightly (test code = 604) hemolyzed LACTIC ACID, ARTERIAL, WHOLE [id number] 17:53:00 Test Item Value Reference Range Interpretation Comments LACTATE BLOOD 10.8 mmol/L 0.5-2.2 H Specimen sligh tly ARTERIAL (2) (BEAKER) hemoly zed (test code = 2874) Effective 01/04/2016: Units/Reference Range ChangeNew: 0.5-2.2 mmol/L Previous: 5-20 mg/bBC-[id number] 17:46:00 Test Item Value Reference Range Interpretation [...] exclusion of thrombosis is within 95-100% range. [id number] 17:46:00 Test Item Value Reference Range Interpretation Comments FIBRINOGEN LEVEL (BEAKER) (test 201 mg/dl 225-434 L code = 658) PROTHROMBIN [id number] 17:45:00 Test Item Value Reference Range Interpretation Comments PROTIME (BEAKER) (test code = 24.4 seconds 11.7-14.7 H 759) INR (BEAKER) (test code = 370) 2.2 <=5.9 RECOMMENDED COUMADIN/WARFARIN INR THERAPY RANGESSTANDARD DOSE: 2.0 - 3.0 Includes: PROPHYLAXIS forvenous thrombosis, systemic embolization; TREATMENT for venous thrombosis and/or pulmonary embolus.HIGH RISK: Target INR is 2.5-3.5 for patients with mechanical heart valves.BLOOD GAS, [id number] 17:44:00 Test Item Value Reference Range Interpretation [...] code = 1819) 40.0 % SODIUM NA-STAT [id number] 17:44:00 Test Item Value Reference Range Interpretation Comments SODIUM (BEAKER) (test code = 381) 134 meq/L 135-148 L POTASSIUM-STAT [id number] 17:44:00 Test Item Value Reference Range Interpretation Comments POTASSIUM (BEAKER) (test code = 6.2 meq/L 3.6-5.5 HH 379) GLUCOSE-STAT [id number] 17:44:00 Test Item Value Reference Range Interpretation Comments GLUCOSE RANDOM (BEAKER) (test code 147 mg/dL 70-110 H = 652) HGB/HCT (H&H) - STAT [id number] 17:44:00 Test Item Value Reference Range Interpretation Comments HEMOGLOBIN (BEAKER) (test code = 9.9 g/dL 13.0-16.8 L 410) HEMATOCRIT (BEAKER) (test code = 29.0 % 40.0-50.0 L 411) CALCIUM, [id number] 17:41:00 Test Item Value Reference Range Interpretation Comments CALCIUM IONIZED (BEAKER) (test 1.03 mmol/L 1.12-1.27 L code = 698) PH, BLOOD (BEAKER) (test code = 7.52 1810) OXYGEN SATURATION, [id number] 17:39:00 Test Item Value Reference Range Interpretation Comments O2 SATURATION (MEASURED) (BEAKER) 84.5 % (test code = 1455) CBC W/PLT COUNT & AUTO [id number] 17:37:00 Test Item Value Reference Range Interpretation [...] 0-1 PERCENT (BEAKER) (test code = 2801) [id number] 16:35:00 Test Item Value Reference Range Interpretation Comments ACTIVATED CLOTTING TIME 230 sec TEST ED AT [place] [address] (BEAKER) (test code = [facility] 441) [address] [id number] 16:35:00 Test Item Value Reference Range Interpretation Comments ACTIVATED CLOTTING TIME 191 sec TEST ED AT [place] [address] (BEAKER) (test code = [place] [address]) [address] BLOOD GAS, [id number] 16:20:00 Test Item Value Reference Range Interpretation [...] (test code = 1819) 100 BLOOD GAS, [id number] 16:19:00 Test Item Value Reference Range Interpretation [...] drawn from ECMO circuitLACTIC ACID, ARTERIAL, WHOLE [id number] 14:07:00 Test Item Value Reference Range Interpretation Comments LACTATE BLOOD 13.1 mmol/L 0.5-2.2 H Specimen sligh tly ARTERIAL (2) (BEAKER) hemoly zed (test code = 2874) Effective 01/04/2016: Units/Reference Range ChangeNew: 0.5-2.2 mmol/L Previous: 5-20 mg/dLPROTHROMBIN [id number] 14:01:00 Test Item Value Reference Range Interpretation Comments PROTIME (BEAKER) (test code = 20.9 seconds 11.7-14.7 H 759) INR (BEAKER) (test code = 370) 1.8 <=5.9 RECOMMENDED COUMADIN/WARFARIN INR THERAPY RANGESSTANDARD DOSE: 2.0 - 3.0 Includes: PROPHYLAXIS forvenous thrombosis, systemic embolization; TREATMENT for venous thrombosis and/or pulmonary embolus.HIGH RISK: Target INR is 2.5-3.5 for patients with mechanical heart valves.[id number] 14:01:00 Test Item Value Reference Range Interpretation Comments FIBRINOGEN LEVEL (BEAKER) (test 227 mg/dl 225-434 code = 658) PLATELET [id number] 13:54:00 Test Item Value Reference Range Interpretation Comments PLATELET COUNT (BEAKER) (test 115 K/CU MM 150-450 L code = 756) BLOOD GAS, [id number] 13:47:00 Test Item Value Reference Range Interpretation [...] (test code = 1819) 40.0 % GLUCOSE-STAT [id number] 13:47:00 Test Item Value Reference Range Interpretation Comments GLUCOSE RANDOM (BEAKER) (test code 134 mg/dL 70-110 H = 652) [id number] 12:33:00 Test Item Value Reference Range Interpretation Comments POTASSIUM (BEAKER) (test code = 5.6 meq/L 3.5-5.1 H 379) PRN - repeat glucose levels every 1 hour or as specified by insulin titration orders until glucose level is less than 450 mg/[id number] 12:33:00 Test Item Value Reference Range Interpretation Comments GLUCOSE RANDOM (BEAKER) (test code = 43 mg/dL 70-105 L 652) PRN - repeat glucose levels every 1 hour or as specified by insulin titration orders until glucose level is less than 450 mg/dLBASIC METABOLIC [id number] 11:05:00 Test Item Value Reference Range Interpretation [...] until glucose level is less than 450 mg/[id number] 11:05:00 Test Item Value Reference Range Interpretation Comments GLUCOSE RANDOM (BEAKER) (test code = 34 mg/dL 70-105 LL 652) [id number] 10:44:00 Test Item Value Reference Range Interpretation Comments POTASSIUM (BEAKER) (test code = 5.9 meq/L 3.5-5.1 H 379) HEPATIC FUNCTION [id number] 10:44:00 Test Item Value Reference Range Interpretation [...] Previous: 5-20 mg/dLCBC W/PLT COUNT & AUTO [id number] 10:23:00 Test Item Value Reference Range Interpretation [...] (BEAKER) (test code = 2801) BLOOD GAS, [id number] 10:20:00 Test Item Value Reference Range Interpretation [...] (BEAKER) (test code = 1819) 40.0 % [id number] 09:01:00 Test Item Value Reference Range Interpretation Comments POTASSIUM (BEAKER) (test code = 5.9 meq/L 3.5-5.1 H 379) PRN - repeat glucose levels every 1 hour or as specified by insulin titration orders until glucose level is less than 450 mg/[id number] 09:01:00 Test Item Value Reference Range Interpretation Comments MAGNESIUM (BEAKER) (test code = 1.7 mg/dL 1.6-2.6 627) PRN - repeat glucose levels every 1 hour or as specified by insulin titration orders until glucose level is less than 450 mg/[id number] 09:01:00 Test Item Value Reference Range Interpretation Comments PHOSPHORUS (BEAKER) (test code = 4.7 mg/dL 2.3-4.7 604) PRN - repeat glucose levels every 1 hour or as specified by insulin titration orders until glucose level is less than 450 mg/[id number] 09:01:00 Test Item Value Reference Range Interpretation Comments GLUCOSE RANDOM (BEAKER) (test code = 50 mg/dL 70-105 L 652) PRN - repeat glucose levels every 1 hour or as specified by insulin titration orders until glucose level is less than 450 mg/dLCALCIUM, [id number] 08:47:00 Test Item Value Reference Range Interpretation Comments CALCIUM IONIZED (BEAKER) (test 1.24 mmol/L 1.12-1.27 code = 698) PH, BLOOD (BEAKER) (test code = 7.31 1810) [id number] 08:45:00 Test Item Value Reference Range Interpretation Comments PARTIAL THROMBOPLASTIN TIME 53.7 seconds 22.5-36.0 H (BEAKER) (test code = 760) BLOOD GAS, [id number] 08:41:00 Test Item Value Reference Range Interpretation [...] (test code = 1819) 40.0 % PH, [id number] 08:41:00 Test Item Value Reference Range Interpretation Comments PH ARTERIAL (BEAKER) (test code = 383) 7.31 7.35-7.45 L RAD, CHEST, 1 VIEW, NON [id number] 07:31:00Reason for exam:->s/p cardiac surgeryShould this be [...] Xie MDReport VerifiedDate/Time: 01/11/2018 07:31:38 Reading Location: [address] Ortho Consult Reading Room BLOOD GAS, [...] code = 1819) 40.0 % BASIC METABOLIC [id number] 06:12:00 Test Item Value Reference Range Interpretation [...] NOT APPLICABLE FOR DIALYSIS PATIEN TS. POCT-GLUCOSE [id number] 05:58:00 Test Item Value Reference Range Interpretation Comments POC-GLUCOSE METER 121 mg/dL 70-[address] [facility] [address] (BEAKER) (test code = [address]OSTER [address] [place] [address]) [address] POCT-GLUCOSE [id number] 05:58:00 Test Item Value Reference Range Interpretation Comments POC-GLUCOSE METER 66 mg/dL 70-110 L Will Repea t Test/TESTED (BEAKER) (test code = AT [facility] [address] [place] [address]) [facility] [address] [id number] 05:51:00 Test Item Value Reference Range Interpretation Comments PHOSPHORUS (BEAKER) (test code = 3.5 mg/dL 2.3-4.7 604) [id number] 05:51:00 Test Item Value Reference Range Interpretation Comments MAGNESIUM (BEAKER) (test code = 1.9 mg/dL 1.6-2.6 627) BLOOD GAS, [id number] 05:47:00 Test Item Value Reference Range Interpretation [...] (test code = 1819) 40.0 % POCT-GLUCOSE [id number] 05:27:00 Test Item Value Reference Range Interpretation Comments POC-GLUCOSE METER 112 mg/dL 70-110 H TESTED AT [place] [address] (BEAKER) (test code = [place] [address]) [address] POCT-GLUCOSE [id number] 05:27:00 Test Item Value Reference Range Interpretation Comments POC-GLUCOSE METER 106 mg/dL 70-110 TESTED AT [place] [address] ([facility]) (test code = [place] [address]) [address] POCT-GLUCOSE [id number] 05:26:00 Test Item Value Reference Range Interpretation Comments POC-GLUCOSE METER 66 mg/dL 70-110 L TESTED AT [place] [address] ([facility]) (test code = [facility] [address]) LACTIC ACID, ARTERIAL, WHOLE [id number] 04:59:00 Test Item Value Reference Range Interpretation Comments LACTATE BLOOD 12.2 mmol/L 0.5-2.2 H Specimen sligh tly ARTERIAL (2) (BEAKER) hemoly zed (test code = 2874) Effective 01/04/2016: Units/Reference Range ChangeNew: 0.5-2.2 mmol/L Previous: 5-20 mg/dLCALCIUM, [id number] 04:57:00 Test Item Value Reference Range Interpretation Comments CALCIUM IONIZED (BEAKER) (test 1.33 mmol/L 1.12-1.27 H code = 698) PH, BLOOD (BEAKER) (test code = 7.30 1810) BLOOD GAS, [id number] 04:57:00 Test Item Value Reference Range Interpretation [...] code = 1819) 45.0 % OXYGEN SATURATION, [id number] 04:56:00 Test Item Value Reference Range Interpretation Comments O2 SATURATION (MEASURED) (BEAKER) 83.2 % (test code = 1455) CBC W/PLT COUNT & AUTO [id number] 04:56:00 Test Item Value Reference Range Interpretation [...] PERCENT (BEAKER) (test code = 2801) CALCIUM, [id number] 03:38:00 Test Item Value Reference Range Interpretation Comments CALCIUM IONIZED (BEAKER) (test 1.32 mmol/L 1.12-1.27 H code = 698) PH, BLOOD (BEAKER) (test code = 7.29 1810) BLOOD GAS, [id number] 03:36:00 Test Item Value Reference Range Interpretation [...] 1819) 50.0 % HGB/HCT (H&H) - STAT [id number] 03:36:00 Test Item Value Reference Range Interpretation Comments HEMOGLOBIN (BEAKER) (test code = 12.5 g/dL 13.0-16.8 L 410) HEMATOCRIT (BEAKER) (test code = 37.0 % 40.0-50.0 L 411) OXYGEN SATURATION, [id number] 03:35:00 Test Item Value Reference Range Interpretation Comments O2 SATURATION (MEASURED) (BEAKER) 80.3 % (test code = 1455) GLUCOSE-STAT [id number] 03:34:00 Test Item Value Reference Range Interpretation Comments GLUCOSE RANDOM (BEAKER) (test code = 91 mg/dL 70-110 652) SODIUM NA-STAT [id number] 03:34:00 Test Item Value Reference Range Interpretation Comments SODIUM (BEAKER) (test code = 381) 137 meq/L 135-148 POTASSIUM-STAT [id number] 03:34:00 Test Item Value Reference Range Interpretation Comments POTASSIUM (BEAKER) (test code = 4.6 meq/L 3.6-5.5 379) BLOOD GAS, [id number] 03:01:00 Test Item Value Reference Range Interpretation [...] 1819) 50.0 % HGB/HCT (H&H) - STAT [id number] 03:01:00 Test Item Value Reference Range Interpretation Comments HEMOGLOBIN (BEAKER) (test code = 12.0 g/dL 13.0-16.8 L 410) HEMATOCRIT (BEAKER) (test code = 35.0 % 40.0-50.0 L 411) POTASSIUM-STAT [id number] 03:00:00 Test Item Value Reference Range Interpretation Comments POTASSIUM (BEAKER) (test code = 5.0 meq/L 3.6-5.5 379) GLUCOSE-STAT [id number] 03:00:00 Test Item Value Reference Range Interpretation Comments GLUCOSE RANDOM (BEAKER) (test code 102 mg/dL 70-110 = 652) SODIUM NA-STAT [id number] 03:00:00 Test Item Value Reference Range Interpretation Comments SODIUM (BEAKER) (test code = 381) 140 meq/L 135-148 LACTIC ACID, ARTERIAL, WHOLE [id number] 01:53:00 Test Item Value Reference Range Interpretation Comments LACTATE BLOOD 9.4 mmol/L 0.5-2.2 H Specimen sligh tly ARTERIAL (2) (BEAKER) hemoly zed (test code = 2874) Effective 01/04/2016: Units/Reference Range ChangeNew: 0.5-2.2 mmol/L Previous: 5-20 mg/dLGLUCOSE-STAT [id number] 01:27:00 Test Item Value Reference Range Interpretation Comments GLUCOSE RANDOM (BEAKER) (test code = 99 mg/dL 70-110 652) BLOOD GAS, [id number] 01:27:00 Test Item Value Reference Range Interpretation [...] 1819) 100.0 % HGB/HCT (H&H) - STAT [id number] 01:27:00 Test Item Value Reference Range Interpretation Comments HEMOGLOBIN (BEAKER) (test code = 12.7 g/dL 13.0-16.8 L 410) HEMATOCRIT (BEAKER) (test code = 37.0 % 40.0-50.0 L 411) SODIUM NA-STAT [id number] 01:26:00 Test Item Value Reference Range Interpretation Comments SODIUM (BEAKER) (test code = 381) 141 meq/L 135-148 POTASSIUM-STAT [id number] 01:26:00 Test Item Value Reference Range Interpretation Comments POTASSIUM (BEAKER) (test code = 3.6 meq/L 3.6-5.5 379) [id number] 00:38:00 Test Item Value Reference Range Interpretation Comments PARTIAL THROMBOPLASTIN TIME 47.4 seconds 22.5-36.0 H (BEAKER) (test code = 760) [id number] 00:35:00 Test Item Value Reference Range Interpretation Comments POTASSIUM (BEAKER) 3.5 meq/L 3.5-5.1 Specimen slightly (test code = 379) hemolyzed CALCIUM, [id number] 00:25:00 Test Item Value Reference Range Interpretation [...] = 1414) RAD, CHEST, 1 VIEW, NON [id number] 22:36:00Reason for exam:->s/p BronchoscopyFINAL REPORT CLINICAL INDICATION: Post bronchoscopy Comparison: Same date to2491 hours There is improved aeration of the right upper lobe. No pneumothorax is present. Hazy opacity in the right upper lobe and in the retrocardiac lower lungs may reflect atelectasis but pneumonitis should be excluded clinically. The cardiomediastinal contours are stable. Support lines are stable. Signed: Kellen Parra MDReport Verified Date/Time: 01/10/2018 22:36:29 Reading Location: [address] Reading Room C METABOLIC [id number] 22:01:00 Test Item Value Reference Range Interpretation [...] S NOT APPLICABLE FOR DIALYSIS PATIEN TS. [id number] 22:00:00 Test Item Value Reference Range Interpretation Comments MAGNESIUM (BEAKER) 2.4 mg/dL 1.6-2.6 Specimen slightly (test code = 627) hemolyzed [id number] 22:00:00 Test Item Value Reference Range Interpretation Comments PHOSPHORUS (BEAKER) 3.2 mg/dL 2.3-4.7 Specimen slightly (test code = 604) hemolyzed LACTIC ACID, ARTERIAL, WHOLE [id number] 21:57:00 Test Item Value Reference Range Interpretation Comments LACTATE BLOOD 10.2 mmol/L 0.5-2.2 H Specimen sligh tly ARTERIAL (2) (BEAKER) hemoly zed (test code = 2874) Effective 01/04/2016: Units/Reference Range ChangeNew: 0.5-2.2 mmol/L Previous: 5-20 mg/dLCBC W/PLT COUNT & AUTO [id number] 21:51:00 Test Item Value Reference Range Interpretation [...] 0-1 PERCENT (BEAKER) (test code = 2801) [id number] 21:49:00 Test Item Value Reference Range Interpretation Comments PARTIAL THROMBOPLASTIN TIME 41.2 seconds 22.5-36.0 H (BEAKER) (test code = 760) PROTHROMBIN [id number] 21:48:00 Test Item Value Reference Range Interpretation Comments PROTIME (BEAKER) (test code = 19.8 seconds 11.7-14.7 H 759) INR (BEAKER) (test code = 370) 1.7 <=5.9 RECOMMENDED COUMADIN/WARFARIN INR THERAPY RANGESSTANDARD DOSE: 2.0 - 3.0 Includes: PROPHYLAXIS forvenous thrombosis, systemic embolization; TREATMENT for venous thrombosis and/or pulmonary embolus.HIGH RISK: Target INR is 2.5-3.5 for patients with mechanical heart valves.[id number] 21:48:00 Test Item Value Reference Range Interpretation Comments FIBRINOGEN LEVEL (BEAKER) (test 221 mg/dl 225-434 L code = 658) CALCIUM, [id number] 21:33:00 Test Item Value Reference Range Interpretation Comments CALCIUM IONIZED (BEAKER) (test 1.54 mmol/L 1.12-1.27 H code = 698) PH, BLOOD (BEAKER) (test code = 7.33 1810) OXYGEN SATURATION, [id number] 21:33:00 Test Item Value Reference Range Interpretation Comments O2 SATURATION (MEASURED) (BEAKER) 67.1 % (test code = 1455) GLUCOSE-STAT [id number] 21:32:00 Test Item Value Reference Range Interpretation Comments GLUCOSE RANDOM (BEAKER) (test code = 98 mg/dL 70-110 652) SODIUM NA-STAT [id number] 21:32:00 Test Item Value Reference Range Interpretation Comments SODIUM (BEAKER) (test code = 381) 139 meq/L 135-148 POTASSIUM-STAT [id number] 21:32:00 Test Item Value Reference Range Interpretation Comments POTASSIUM (BEAKER) (test code = 3.6 meq/L 3.6-5.5 379) BLOOD GAS, [id number] 21:32:00 Test Item Value Reference Range Interpretation [...] 1819) 60.0 % HGB/HCT (H&H) - STAT [id number] 21:32:00 Test Item Value Reference Range Interpretation Comments HEMOGLOBIN (BEAKER) (test code = 8.2 g/dL 13.0-16.8 L 410) HEMATOCRIT (BEAKER) (test code = 24.0 % 40.0-50.0 L 411) RAD, CHEST, 1 VIEW, NON [id number] 21:32:00Reason for exam:->s/p cardiac surgeryShould this be [...] the level of the clavicles. Right IJ Elgin-Moni catheter terminatesin the distal right pulmonary artery. The soft tissues and osseous structures are intact. IMPRESSION: Postoperative changes with right upper lobe collapse, likely secondary to mucous plugging. Supporting lines and tubes as described above. Note position of the Elgin-Moni catheter. Signed: Moiz Musa MDReport Verified Date/Time: 01/10/2018 21:32:31 Reading Location: [facility] C013W Consult Reading Room THROMBOELASTOGRAPH [...] 55.0-65.0 L (test code = 1413) CALCIUM, [id number] 20:42:00 Test Item Value Reference Range Interpretation Comments CALCIUM IONIZED (BEAKER) (test 1.41 mmol/L 1.12-1.27 H code = 698) PH, BLOOD (BEAKER) (test code = 7.41 1810) SODIUM NA-STAT [id number] 20:41:00 Test Item Value Reference Range Interpretation Comments SODIUM (BEAKER) (test code = 381) 138 meq/L 135-148 POTASSIUM-STAT [id number] 20:41:00 Test Item Value Reference Range Interpretation Comments POTASSIUM (BEAKER) (test code = 3.7 meq/L 3.6-5.5 379) BLOOD GAS, [id number] 20:41:00 Test Item Value Reference Range Interpretation [...] (test code = 1819) 100.0 % GLUCOSE-STAT [id number] 20:41:00 Test Item Value Reference Range Interpretation Comments GLUCOSE RANDOM (BEAKER) (test code 120 mg/dL 70-110 H = 652) HGB/HCT (H&H) - STAT [id number] 20:41:00 Test Item Value Reference Range Interpretation Comments HEMOGLOBIN (BEAKER) (test code = 7.8 g/dL 13.0-16.8 L 410) HEMATOCRIT (BEAKER) (test code = 23.0 % 40.0-50.0 L 411) [id number] 20:23:00 Test Item Value Reference Range Interpretation Comments FIBRINOGEN LEVEL (BEAKER) (test 239 mg/dl 225-434 code = 658) [id number] 20:23:00 Test Item Value Reference Range Interpretation Comments PARTIAL THROMBOPLASTIN TIME 38.6 seconds 22.5-36.0 H (BEAKER) (test code = 760) PROTHROMBIN [id number] 20:22:00 Test Item Value Reference Range Interpretation Comments PROTIME (BEAKER) (test code = 21.6 seconds 11.7-14.7 H 759) INR (BEAKER) (test code = 370) 1.9 <=5.9 RECOMMENDED COUMADIN/WARFARIN INR THERAPY RANGESSTANDARD DOSE: 2.0 - 3.0 Includes: PROPHYLAXIS forvenous thrombosis, systemic embolization; TREATMENT for venous thrombosis and/or pulmonary embolus.HIGH RISK: Target INR is 2.5-3.5 for patients with mechanical heart valves.[id number] 20:16:00 Test Item Value Reference Range Interpretation Comments ACTIVATED CLOTTING TIME 114 sec TEST ED AT [place] [address] ([facility]) (test code = [place] [address]) [id number] 20:16:00 Test Item Value Reference Range Interpretation Comments ACTIVATED CLOTTING TIME 499 sec TEST ED AT [place] [address] ([facility]) (test code = [place] [address]) [id number] 20:16:00 Test Item Value Reference Range Interpretation Comments ACTIVATED CLOTTING TIME 483 sec TEST ED AT [place] [address] ([facility]) (test code = [place] [address]) [id number] 20:16:00 Test Item Value Reference Range Interpretation Comments ACTIVATED CLOTTING TIME 538 sec TEST ED AT [place] [address] ([facility]) (test code = [place] [address]) [address] [id number] 20:16:00 Test Item Value Reference Range Interpretation Comments ACTIVATED CLOTTING TIME 615 sec TEST ED AT [place] [address] ([facility]) (test code = [place] [address]) [address] [id number] 20:16:00 Test Item Value Reference Range Interpretation Comments ACTIVATED CLOTTING TIME 692 sec TEST ED AT [place] [address] ([facility]) (test code = [place] [address]) [address] [id number] 20:16:00 Test Item Value Reference Range Interpretation Comments ACTIVATED CLOTTING TIME 428 sec TEST ED AT [place] [address] ([facility]) (test code = [place] [address]) [address] [id number] 20:16:00 Test Item Value Reference Range Interpretation Comments ACTIVATED CLOTTING TIME 373 sec TEST ED AT [place] [address] ([facility]) (test code = [place] [address]) [address] [id number] 20:16:00 Test Item Value Reference Range Interpretation Comments ACTIVATED CLOTTING TIME 455 sec TEST ED AT [place] [address] ([facility]) (test code = [place] [address]) [address] [id number] 20:16:00 Test Item Value Reference Range Interpretation Comments ACTIVATED CLOTTING TIME 494 sec TEST ED AT [place] [address] (BEAKER) (test code = [place] [facility]) [address] [id number] 20:16:00 Test Item Value Reference Range Interpretation Comments ACTIVATED CLOTTING TIME 527 sec TEST ED AT [place] [address] ([facility]) (test code = [place] [address]) [address] [id number] 20:16:00 Test Item Value Reference Range Interpretation Comments ACTIVATED CLOTTING TIME 610 sec TEST ED AT [place] [address] ([facility]) (test code = [place] [address]) [address] [id number] 20:16:00 Test Item Value Reference Range Interpretation Comments ACTIVATED CLOTTING TIME 576 sec TEST ED AT [place] [address] ([facility]) (test code = [place] [address]) [address] [id number] 20:16:00 Test Item Value Reference Range Interpretation Comments ACTIVATED CLOTTING TIME 384 sec TEST ED AT [place] [address] ([facility]) (test code = [place] [address]) [address] PLATELET [id number] 20:08:00 Test Item Value Reference Range Interpretation [...] 0.0-5.0 (BEAKER) (test code = 1414) CALCIUM, [id number] 19:59:00 Test Item Value Reference Range Interpretation Comments CALCIUM IONIZED (BEAKER) (test 1.39 mmol/L 1.12-1.27 H code = 698) PH, BLOOD (BEAKER) (test code = 7.37 1810) BLOOD GAS, [id number] 19:58:00 Test Item Value Reference Range Interpretation [...] (test code = 1819) 100.0 % GLUCOSE-STAT [id number] 19:58:00 Test Item Value Reference Range Interpretation Comments GLUCOSE RANDOM (BEAKER) (test code 143 mg/dL 70-110 H = 652) HGB/HCT (H&H) - STAT [id number] 19:58:00 Test Item Value Reference Range Interpretation Comments HEMOGLOBIN (BEAKER) (test code = 8.7 g/dL 13.0-16.8 L 410) HEMATOCRIT (BEAKER) (test code = 26.0 % 40.0-50.0 L 411) SODIUM NA-STAT [id number] 19:57:00 Test Item Value Reference Range Interpretation Comments SODIUM (BEAKER) (test code = 381) 140 meq/L 135-148 POTASSIUM-STAT [id number] 19:57:00 Test Item Value Reference Range Interpretation Comments POTASSIUM (BEAKER) (test code = 3.9 meq/L 3.6-5.5 379) [id number] 19:29:00 Test Item Value Reference Range Interpretation Comments PARTIAL THROMBOPLASTIN TIME > seconds 22.5-36.0 HH (BEAKER) (test code = 760) [id number] 19:16:00 Test Item Value Reference Range Interpretation Comments FIBRINOGEN LEVEL (BEAKER) (test 271 mg/dl 225-434 code = 658) PROTHROMBIN [id number] 19:15:00 Test Item Value Reference Range Interpretation Comments PROTIME (BEAKER) (test code = 21.3 seconds 11.7-14.7 H 759) INR (BEAKER) (test code = 370) 1.8 <=5.9 RECOMMENDED COUMADIN/WARFARIN INR THERAPY RANGESSTANDARD DOSE: 2.0 - 3.0 Includes: PROPHYLAXIS forvenous thrombosis, systemic embolization; TREATMENT for venous thrombosis and/or pulmonary embolus.HIGH RISK: Target INR is 2.5-3.5 for patients with mechanical heart valves.PLATELET [id number] 19:06:00 Test Item Value Reference Range Interpretation Comments PLATELET COUNT (BEAKER) (test code 54 K/CU MM 150-450 L = 756) BLOOD GAS, [id number] 18:49:00 Test Item Value Reference Range Interpretation [...] 1819) 100.0 % HGB/HCT (H&H) - STAT [id number] 18:44:00 Test Item Value Reference Range Interpretation Comments HEMOGLOBIN (BEAKER) (test code = 10.1 g/dL 13.0-16.8 L 410) HEMATOCRIT (BEAKER) (test code = 30.0 % 40.0-50.0 L 411) SODIUM NA-STAT [id number] 18:43:00 Test Item Value Reference Range Interpretation Comments SODIUM (BEAKER) (test code = 381) 137 meq/L 135-148 POTASSIUM-STAT [id number] 18:43:00 Test Item Value Reference Range Interpretation Comments POTASSIUM (BEAKER) (test code = 5.0 meq/L 3.6-5.5 379) GLUCOSE-STAT [id number] 18:43:00 Test Item Value Reference Range Interpretation Comments GLUCOSE RANDOM (BEAKER) (test code 187 mg/dL 70-110 H = 652) SODIUM NA-STAT [id number] 18:22:00 Test Item Value Reference Range Interpretation Comments SODIUM (BEAKER) (test code = 381) 140 meq/L 135-148 POTASSIUM-STAT [id number] 18:22:00 Test Item Value Reference Range Interpretation Comments POTASSIUM (BEAKER) (test code = 4.7 meq/L 3.6-5.5 379) BLOOD GAS, [id number] 18:22:00 Test Item Value Reference Range Interpretation [...] (test code = 1819) 60.0 % GLUCOSE-STAT [id number] 18:22:00 Test Item Value Reference Range Interpretation Comments GLUCOSE RANDOM (BEAKER) (test code 209 mg/dL 70-110 H = 652) HGB/HCT (H&H) - STAT [id number] 18:22:00 Test Item Value Reference Range Interpretation Comments HEMOGLOBIN (BEAKER) (test code = 10.2 g/dL 13.0-16.8 L 410) HEMATOCRIT (BEAKER) (test code = 30.0 % 40.0-50.0 L 411) BLOOD GAS, [id number] 17:57:00 Test Item Value Reference Range Interpretation [...] (test code = 1819) 65.0 % GLUCOSE-STAT [id number] 17:57:00 Test Item Value Reference Range Interpretation Comments GLUCOSE RANDOM (BEAKER) (test code 198 mg/dL 70-110 H = 652) HGB/HCT (H&H) - STAT [id number] 17:57:00 Test Item Value Reference Range Interpretation Comments HEMOGLOBIN (BEAKER) (test code = 10.3 g/dL 13.0-16.8 L 410) HEMATOCRIT (BEAKER) (test code = 30.0 % 40.0-50.0 L 411) SODIUM NA-STAT [id number] 17:56:00 Test Item Value Reference Range Interpretation Comments SODIUM (BEAKER) (test code = 381) 138 meq/L 135-148 POTASSIUM-STAT [id number] 17:56:00 Test Item Value Reference Range Interpretation Comments POTASSIUM (BEAKER) (test code = 4.7 meq/L 3.6-5.5 379) BLOOD GAS, [id number] 17:28:00 Test Item Value Reference Range Interpretation [...] (test code = 1819) 65.0 % GLUCOSE-STAT [id number] 17:28:00 Test Item Value Reference Range Interpretation Comments GLUCOSE RANDOM (BEAKER) (test code 223 mg/dL 70-110 H = 652) HGB/HCT (H&H) - STAT [id number] 17:28:00 Test Item Value Reference Range Interpretation Comments HEMOGLOBIN (BEAKER) (test code = 10.1 g/dL 13.0-16.8 L 410) HEMATOCRIT (BEAKER) (test code = 30.0 % 40.0-50.0 L 411) SODIUM NA-STAT [id number] 17:27:00 Test Item Value Reference Range Interpretation Comments SODIUM (BEAKER) (test code = 381) 140 meq/L 135-148 POTASSIUM-STAT [id number] 17:27:00 Test Item Value Reference Range Interpretation [...] code = 1414) HGB/HCT (H&H) - STAT [id number] 17:01:00 Test Item Value Reference Range Interpretation Comments HEMOGLOBIN (BEAKER) (test code = 10.1 g/dL 13.0-16.8 L 410) HEMATOCRIT (BEAKER) (test code = 30.0 % 40.0-50.0 L 411) BLOOD GAS, [id number] 17:00:00 Test Item Value Reference Range Interpretation [...] (test code = 1819) 65.0 % GLUCOSE-STAT [id number] 17:00:00 Test Item Value Reference Range Interpretation Comments GLUCOSE RANDOM (BEAKER) (test code 243 mg/dL 70-110 H = 652) SODIUM NA-STAT [id number] 16:59:00 Test Item Value Reference Range Interpretation Comments SODIUM (BEAKER) (test code = 381) 139 meq/L 135-148 POTASSIUM-STAT [id number] 16:59:00 Test Item Value Reference Range Interpretation Comments POTASSIUM (BEAKER) (test code = 4.6 meq/L 3.6-5.5 379) [id number] 16:47:00 Test Item Value Reference Range Interpretation Comments PARTIAL THROMBOPLASTIN TIME > seconds 22.5-36.0 HH (BEAKER) (test code = 760) BLOOD GAS, [id number] 16:18:00 Test Item Value Reference Range Interpretation [...] (test code = 1819) 65.0 % GLUCOSE-STAT [id number] 16:18:00 Test Item Value Reference Range Interpretation Comments GLUCOSE RANDOM (BEAKER) (test code 279 mg/dL 70-110 H = 652) HGB/HCT (H&H) - STAT [id number] 16:18:00 Test Item Value Reference Range Interpretation Comments HEMOGLOBIN (BEAKER) (test code = 7.0 g/dL 13.0-16.8 L 410) HEMATOCRIT (BEAKER) (test code = 21.0 % 40.0-50.0 L 411) SODIUM NA-STAT [id number] 16:17:00 Test Item Value Reference Range Interpretation Comments SODIUM (BEAKER) (test code = 381) 137 meq/L 135-148 POTASSIUM-STAT [id number] 16:17:00 Test Item Value Reference Range Interpretation Comments POTASSIUM (BEAKER) (test code = 4.6 meq/L 3.6-5.5 379) [id number] 16:15:00 Test Item Value Reference Range Interpretation Comments FIBRINOGEN LEVEL (BEAKER) (test 255 mg/dl 225-434 code = 658) PROTHROMBIN [id number] 16:14:00 Test Item Value Reference Range Interpretation Comments PROTIME (BEAKER) (test code = 20.2 seconds 11.7-14.7 H 759) INR (BEAKER) (test code = 370) 1.7 <=5.9 RECOMMENDED COUMADIN/WARFARIN INR THERAPY RANGESSTANDARD DOSE: 2.0 - 3.0 Includes: PROPHYLAXIS forvenous thrombosis, systemic embolization; TREATMENT for venous thrombosis and/or pulmonary embolus.HIGH RISK: Target INR is 2.5-3.5 for patients with mechanical heart valves.PLATELET [id number] 16:02:00 Test Item Value Reference Range Interpretation Comments PLATELET COUNT (BEAKER) (test code 57 K/CU MM 150-450 L = 756) CALCIUM, [id number] 15:51:00 Test Item Value Reference Range Interpretation Comments CALCIUM IONIZED (BEAKER) (test 0.82 mmol/L 1.12-1.27 L code = 698) PH, BLOOD (BEAKER) (test code = 7.45 1810) BLOOD GAS, [id number] 15:51:00 Test Item Value Reference Range Interpretation [...] (test code = 1819) 100.0 % GLUCOSE-STAT [id number] 15:51:00 Test Item Value Reference Range Interpretation Comments GLUCOSE RANDOM (BEAKER) (test code 190 mg/dL 70-110 H = 652) HGB/HCT (H&H) - STAT [id number] 15:51:00 Test Item Value Reference Range Interpretation Comments HEMOGLOBIN (BEAKER) (test code = 7.6 g/dL 13.0-16.8 L 410) HEMATOCRIT (BEAKER) (test code = 22.0 % 40.0-50.0 L 411) POTASSIUM-STAT [id number] 15:51:00 Test Item Value Reference Range Interpretation Comments POTASSIUM (BEAKER) (test code = 5.6 meq/L 3.6-5.5 H 379) SODIUM NA-STAT [id number] 15:50:00 Test Item Value Reference Range Interpretation Comments SODIUM (BEAKER) (test code = 381) 139 meq/L 135-148 BLOOD GAS, [id number] 15:43:00 Test Item Value Reference Range Interpretation [...] (test code = 1819) 75.0 % GLUCOSE-STAT [id number] 15:43:00 Test Item Value Reference Range Interpretation Comments GLUCOSE RANDOM (BEAKER) (test code 189 mg/dL 70-110 H = 652) HGB/HCT (H&H) - STAT [id number] 15:43:00 Test Item Value Reference Range Interpretation Comments HEMOGLOBIN (BEAKER) (test code = 8.0 g/dL 13.0-16.8 L 410) HEMATOCRIT (BEAKER) (test code = 24.0 % 40.0-50.0 L 411) POTASSIUM-STAT [id number] 15:43:00 Test Item Value Reference Range Interpretation Comments POTASSIUM (BEAKER) (test code = 5.7 meq/L 3.6-5.5 H 379) SODIUM NA-STAT [id number] 15:42:00 Test Item Value Reference Range Interpretation Comments SODIUM (BEAKER) (test code = 381) 136 meq/L 135-148 SODIUM NA-STAT [id number] 15:06:00 Test Item Value Reference Range Interpretation Comments SODIUM (BEAKER) (test code = 381) 139 meq/L 135-148 BLOOD GAS, [id number] 15:06:00 Test Item Value Reference Range Interpretation [...] (test code = 1819) 60.0 % POTASSIUM-STAT [id number] 15:06:00 Test Item Value Reference Range Interpretation Comments POTASSIUM (BEAKER) (test code = 5.8 meq/L 3.6-5.5 H 379) GLUCOSE-STAT [id number] 15:06:00 Test Item Value Reference Range Interpretation Comments GLUCOSE RANDOM (BEAKER) (test code 192 mg/dL 70-110 H = 652) HGB/HCT (H&H) - STAT [id number] 15:06:00 Test Item Value Reference Range Interpretation Comments HEMOGLOBIN (BEAKER) (test code = 8.2 g/dL 13.0-16.8 L 410) HEMATOCRIT (BEAKER) (test code = 24.0 % 40.0-50.0 L 411) POTASSIUM-STAT [id number] 14:41:00 Test Item Value Reference Range Interpretation Comments POTASSIUM (BEAKER) (test code = 5.2 meq/L 3.6-5.5 379) BLOOD GAS, [id number] 14:41:00 Test Item Value Reference Range Interpretation [...] code = 1819) 60.0 % SODIUM NA-STAT [id number] 14:41:00 Test Item Value Reference Range Interpretation Comments SODIUM (BEAKER) (test code = 381) 134 meq/L 135-148 L GLUCOSE-STAT [id number] 14:41:00 Test Item Value Reference Range Interpretation Comments GLUCOSE RANDOM (BEAKER) (test code 195 mg/dL 70-110 H = 652) HGB/HCT (H&H) - STAT [id number] 14:41:00 Test Item Value Reference Range Interpretation Comments HEMOGLOBIN (BEAKER) (test code = 8.2 g/dL 13.0-16.8 L 410) HEMATOCRIT (BEAKER) (test code = 24.0 % 40.0-50.0 L 411) BLOOD GAS, [id number] 14:10:00 Test Item Value Reference Range Interpretation [...] (test code = 1819) 60.0 % GLUCOSE-STAT [id number] 14:10:00 Test Item Value Reference Range Interpretation Comments GLUCOSE RANDOM (BEAKER) (test code 177 mg/dL 70-110 H = 652) HGB/HCT (H&H) - STAT [id number] 14:10:00 Test Item Value Reference Range Interpretation Comments HEMOGLOBIN (BEAKER) (test code = 8.5 g/dL 13.0-16.8 L 410) HEMATOCRIT (BEAKER) (test code = 25.0 % 40.0-50.0 L 411) SODIUM NA-STAT [id number] 14:09:00 Test Item Value Reference Range Interpretation Comments SODIUM (BEAKER) (test code = 381) 136 meq/L 135-148 POTASSIUM-STAT [id number] 14:09:00 Test Item Value Reference Range Interpretation Comments POTASSIUM (BEAKER) (test code = 5.0 meq/L 3.6-5.5 379) SODIUM NA-STAT [id number] 13:39:00 Test Item Value Reference Range Interpretation Comments SODIUM (BEAKER) (test code = 381) 136 meq/L 135-148 POTASSIUM-STAT [id number] 13:39:00 Test Item Value Reference Range Interpretation Comments POTASSIUM (BEAKER) (test code = 5.0 meq/L 3.6-5.5 379) BLOOD GAS, [id number] 13:39:00 Test Item Value Reference Range Interpretation [...] (test code = 1819) 60.0 % GLUCOSE-STAT [id number] 13:39:00 Test Item Value Reference Range Interpretation Comments GLUCOSE RANDOM (BEAKER) (test code 179 mg/dL 70-110 H = 652) HGB/HCT (H&H) - STAT [id number] 13:39:00 Test Item Value Reference Range Interpretation Comments HEMOGLOBIN (BEAKER) (test code = 8.1 g/dL 13.0-16.8 L 410) HEMATOCRIT (BEAKER) (test code = 24.0 % 40.0-50.0 L 411) CALCIUM, [id number] 12:31:00 Test Item Value Reference Range Interpretation Comments CALCIUM IONIZED (BEAKER) (test 1.09 mmol/L 1.12-1.27 L code = 698) PH, BLOOD (BEAKER) (test code = 7.45 1810) GLUCOSE-STAT [id number] 12:30:00 Test Item Value Reference Range Interpretation Comments GLUCOSE RANDOM (BEAKER) (test code = 93 mg/dL 70-110 652) SODIUM NA-STAT [id number] 12:30:00 Test Item Value Reference Range Interpretation Comments SODIUM (BEAKER) (test code = 381) 140 meq/L 135-148 POTASSIUM-STAT [id number] 12:30:00 Test Item Value Reference Range Interpretation Comments POTASSIUM (BEAKER) (test code = 3.9 meq/L 3.6-5.5 379) BLOOD GAS, [id number] 12:30:00 Test Item Value Reference Range Interpretation [...] 1819) 100.0 % HGB/HCT (H&H) - STAT [id number] 12:30:00 Test Item Value Reference Range Interpretation Comments HEMOGLOBIN (BEAKER) (test code = 9.3 g/dL 13.0-16.8 L 410) HEMATOCRIT (BEAKER) (test code = 27.0 % 40.0-50.0 L 411) HEMOGLOBIN [id number] 10:02:00 Test Item Value Reference Range Interpretation Comments HEMOGLOBIN A1C (BEAKER) (test code = 4.4 % 4.3-6.1 368) POCT-GLUCOSE [id number] 09:52:00 Test Item Value Reference Range Interpretation Comments POC-GLUCOSE METER 115 mg/dL 70-[address] [facility] 6720 (BEAKER) (test code = [place]ER [place] 1538) [address] PROTHROMBIN [id number] 02:41:00 Test Item Value Reference Range Interpretation Comments PROTIME (BEAKER) (test code = 14.9 seconds 11.7-14.7 H 759) INR (BEAKER) (test code = 370) 1.2 <=5.9 RECOMMENDED COUMADIN/WARFARIN INR THERAPY RANGESSTANDARD DOSE: 2.0 - 3.0 Includes: PROPHYLAXIS forvenous thrombosis, systemic embolization; TREATMENT for venous thrombosis and/or pulmonary embolus.HIGH RISK: Target INR is 2.5-3.5 for patients with mechanical heart valves.BASIC METABOLIC [id number] 00:29:00 Test Item Value Reference Range Interpretation [...] S NOT APPLICABLE FOR DIALYSIS PATIEN TS. [id number] 00:22:00 Test Item Value Reference Range Interpretation Comments MAGNESIUM (BEAKER) 2.5 mg/dL 1.6-2.6 Specimen slightly (test code = 627) hemolyzed [id number] 00:14:00 Test Item Value Reference Range Interpretation Comments PARTIAL THROMBOPLASTIN TIME 38.6 seconds 22.5-36.0 H (BEAKER) (test code = 760) CBC W/PLT COUNT & AUTO [id number] 00:07:00 Test Item Value Reference Range Interpretation [...] 0-1 PERCENT (BEAKER) (test code = 2801) [id number] 17:03:00 Test Item Value Reference Range Interpretation Comments THYROID STIMULATING HORMONE 1.30 uIU/mL 0.35-4.94 (BEAKER) (test code = 772) HEPATIC FUNCTION [id number] 16:43:00 Test Item Value Reference Range Interpretation [...] 69 U/L 6-55 H 347) BASIC METABOLIC [id number] 15:47:00 Test Item Value Reference Range Interpretation [...] S NOT APPLICABLE FOR DIALYSIS PATIEN TED. [id number] 14:57:00 Test Item Value Reference Range Interpretation Comments PARTIAL THROMBOPLASTIN TIME 82.9 seconds 22.5-36.0 H (BEAKER) (test code = 760) CBC W/PLT COUNT & AUTO [id number] 14:48:00 Test Item Value Reference Range Interpretation [...] 0-1 PERCENT ([facility]) (test code = 2801) POCT-GLUCOSE [id number] 11:13:00 Test Item Value Reference Range Interpretation Comments POC-GLUCOSE METER 207 mg/dL 70-[address] [facility] 67 ([facility]) (test code = [facility] 1538) [address] POCT-GLUCOSE [id number] 08:08:00 Test Item Value Reference Range Interpretation Comments POC-GLUCOSE METER 124 mg/dL 70-110 H TESTED AT [place] [address] ([facility]) (test code = [facility] 1538) [address] [id number] 06:51:00 Test Item Value Reference Range Interpretation Comments PARTIAL THROMBOPLASTIN TIME 54.6 seconds 22.5-36.0 H ([facility]) (test code = 760) HEPATITIS B SURFACE [id number] 00:28:00 Test Item Value Reference Range Interpretation Comments HEPATITIS B SURFACE ANTIGEN (2) Nonreactive Nonreactive ([facility]) (test code = 2585) [id number] 00:06:00 Test Item Value Reference Range Interpretation Comments PHOSPHORUS (BEAKER) (test code = 3.2 mg/dL 2.3-4.7 604) [id number] 00:03:00 Test Item Value Reference Range Interpretation Comments PARTIAL THROMBOPLASTIN TIME 36.0 seconds 22.5-36.0 (BEAKER) (test code = 760) CBC W/PLT COUNT & AUTO [id number] 23:45:00 Test Item Value Reference Range Interpretation [...] PERCENT (BEAKER) (test code = 2801) POCT-GLUCOSE [id number] 17:39:00 Test Item Value Reference Range Interpretation Comments POC-GLUCOSE METER 116 mg/dL 70-[address] [facility] 6720 (BEAKER) (test code = [place] 1538) [address] [id number] 15:35:00 Test Item Value Reference Range Interpretation Comments THYROID STIMULATING HORMONE 1.39 uIU/mL 0.35-4.94 (JARROD) (test code = 772) [id number] 15:06:00 Test Item Value Reference Range Interpretation Comments PARTIAL THROMBOPLASTIN TIME 31.0 seconds 22.5-36.0 (JARROD) (test code = 760) Prior to initiating heparinPROTHROMBIN TIME/[id number] 15:05:00 Test Item Value Reference Range Interpretation Comments PROTIME (JARROD) (test code = 14.4 seconds 11.7-14.7 759) INR (JARROD) (test code = 370) 1.1 <=5.9 RECOMMENDED COUMADIN/WARFARIN INR THERAPY RANGESSTANDARD DOSE: 2.0 - 3.0 Includes: PROPHYLAXIS forvenous thrombosis, systemic embolization; TREATMENT for venous thrombosis and/or pulmonary embolus.HIGH RISK: Target INR is 2.5-3.5 for patients with mechanical heart valves.PLATELET [id number] 14:52:00 Test Item Value Reference Range Interpretation Comments PLATELET COUNT (JARROD) (test 109 K/CU MM 150-450 L code = 756) POCT-GLUCOSE [id number] 12:00:00 Test Item Value Reference Range Interpretation Comments POC-GLUCOSE METER 186 mg/dL 70-[address] [facility] 6720 (JARROD) (test code = [place] 1538) [address] RAD, CHEST, 1 VIEW, NON [id number] 11:43:00Reason for exam:->SOB, known severe MRShould this be performed at the bedside?->YesFINAL REPORT Chest one view AP 01/08/2018 11:42 AM CLINICAL INDICATION: SOB, kno wn severe MR COMPARISON: 12/02/2017 IMPRESSION: Cardiomediastinal contours are stable. There is mild pulmonary edema. There are trace bilateral pleural effusions. Signed: Yevgeniy Anderson Verified Date/Time: 01/08/2018 11:43:52 Reading Location: [facility] Radiology Reading Room Electronic ally signed by: YEVGENIY ANDERSON M.D. on 01/08/2018 11:43 AMRAPID CK-HUDSON 2017-12-02 10:04:00 Test Item Value Reference Range Interpretation Comments RAPID CKMB (BEAKER) (test code = 1.5 ng/mL 0.0-4.3 1482) RAPID TROPONIN [id number] 10:04:00 Test Item Value Reference Range Interpretation Comments RAPID TROPONIN I (BEAKER) (test code < ng/mL <0.05 = 1483) RAD, CHEST, 2 [id number] 10:00:00Reason for exam:->Chest PainFINAL REPORT Chest two views Discussion: Heart size upper limits of normal. Bilateral interstitial edema with small bilateral effusions. No pneumothorax. Bones and soft tissues unremarkable. Signed: Rhea Colindreseport Verified Date/Time: 12/02/2017 10:00:39 Reading Location:[facility] Radiology Reading Room B-TYPE NATRIURETIC FACTOR (BNP)2017-12-02 09:56:00 Test Item Value Reference Range Interpretation Comments B-TYPE NATRIURETIC PEPTIDE 1990 pg/mL 0-100 H (BEAKER) (test code = 700) BASIC METABOLIC [id number] 09:52:00 Test Item Value Reference Range Interpretation [...] S NOT APPLICABLE FOR DIALYSIS PATIEN TS. [id number] 09:51:00 Test Item Value Reference Range Interpretation Comments MAGNESIUM (BEAKER) (test code = 1.7 mg/dL 1.5-3.0 627) CBC W/PLT COUNT & AUTO [id number] 09:50:00 Test Item Value Reference Range Interpretation [...] (BEAKER) (test code = 417) CD4/CD8 Ratio [id number] 08:04:00 Test Item Value Reference Range Interpretation Comments Absolute CD 4 [place] (test code 188 /uL 359-1519 L = 842147) % CD 4 Pos. Lymph. (test code = 37.6 % 30.8-58.5 N 143148) Abs. CD 8 Suppressor (test code 183 /uL 109-897 N = 386432) % CD 8 Pos. Lymph. (test code = 36.6 % 12.0-35.5 H 972562) CD4/CD8 Ratio (test code = 1.03 0.92-3.72 N 193708) WBC (test code = 330153) 5.0 x10E3/uL 3.4-10.8 N RBC (test code = 356059) 3.00 x10E6/uL 4.14-5.80 L Hemoglobin (test code = 412761) 9.6 g/dL 13.0-17.7 L Hematocrit (test code = 654255) 27.6 % 37.5-51.0 L MCV (test code = 650032) 92 fL 79-97 N MCH (test code = 017041) 32.0 pg 26.6-33.0 N MCHC (test code = 771413) 34.8 g/dL 31.5-35.7 N RDW (test code = 476593) 15.5 % 12.3-15.4 H Platelets (test code = 135848) 113 x10E3/uL 150-379 L Neutrophils (test code = 84 % Not Estab. N 083827) Lymphs (test code = 135121) 9 % Not Estab. N Monocytes (test code = 260552) 6 % Not Estab. N Eos (test code = 095053) 1 % Not Estab. N Basos (test code = 179389) 0 % Not Estab. N Neutrophils (Absolute) (test 4.2 x10E3/uL 1.4-7.0 N code = 941010) Lymphs (Absolute) (test code = 0.5 x10E3/uL 0.7-3.1 L 237952) Monocytes(Absolute) (test code 0.3 x10E3/uL 0.1-0.9 N = 076117) Eos (Absolute) (test code = 0.0 x10E3/uL 0.0-0.4 N 987977) Baso (Absolute) (test code = 0.0 x10E3/uL 0.0-0.2 N 288506) Immature Granulocytes (test 0 % Not Estab. N code = 091174) Immature Grans (Abs) (test code 0.0 x10E3/uL 0.0-0.1 N = 198995) Culture, Blood [id number] 08:42:00Specimen: BloodCollected: 11/19/2017 00:21 Status: Final Last Updated: 11/24/2017 08:42 Culture Result (Final) (Final) No Growth After 5 DaysCulture, Blood [id number] 08:42:00 Specimen: BloodCollected: 11/18/2017 20:30 Status: Final Last Updated: 11/24/2017 08:42 Culture Result (Final) (Final) No Growth After 5 DaysPOC Glucose, [id number] 11:51:00 Test Item Value Reference Range Interpretation Comments POC Glucose (test 148 mg/dL 70-115 H Notify RN or MDIf you code = POCGLUC) consider you r patient critically ill, the [place] Accu-Chek InformII metershould not be used for Glucose determinations. Draw a venous Glucose and send to the Main Lab for Analysis. CK [id number] 07:42:00 Test Item Value Reference Range Interpretation Comments CK (test code = CK) na U/L 39-308 N CKMB (test code = CKMB) 4.0 ng/mL 0.0-4.9 N CKMB% (test code = CKMBP) 0.0 % 0.0-3.4 N [id number]-[id number] 07:39:00 Test Item Value Reference Range Interpretation Comments NT ProBnp (test code = PBNP) >12750 pg/mL 0-124 H Troponin [id number] 07:18:00 Test Item Value Reference Range Interpretation Comments Troponin T (test code = MADHAV) 0.103 ng/mL 0.000-0.090 H Lactate [id number] 07:18:00 Test Item Value Reference Range Interpretation Comments LDH (test code = LDH) 271 U/L 135-225 H POC Glucose, [id number] 06:50:00 Test Item Value Reference Range Interpretation Comments POC Glucose (test 154 mg/dL 70-115 H Notify RN or MDIf you code = POCGLUC) consider you r patient critically ill, the [place] Accu-Chek InformII metershould not be used for Glucose determinations. Draw a venous Glucose and send to the Main Lab for Analysis. CK [id number] 01:08:00 Test Item Value Reference Range Interpretation Comments CK (test code = CK) na U/L 39-308 N CKMB (test code = CKMB) 3.6 ng/mL 0.0-4.9 N CKMB% (test code = CKMBP) 0.0 % 0.0-3.4 N Troponin [id number] 01:08:00 Test Item Value Reference Range Interpretation Comments Troponin T (test code = MADHAV) 0.106 ng/mL 0.000-0.090 H XR CHEST 1 [id number] 21:02:01CLINICAL INFORMATION: Vascular congestion.Dictation Location: R 16Comparison: 11/18/2017 showed perihilar and lower lobe opacities. Technique: Portable AP 195 hoursFINDINGS: Monitoring electrodes overlie the chest wall. Cardiomegaly withincreasing central vascular interstitial prominence with bibasilaropacities and effusions. No interval bone changes.IMPRESSION: Changes could indicate worsening cardiac decompensation orfluid overload.POC Glucose, [id number] 20:15:00 Test Item Value Reference Range Interpretation Comments POC Glucose (test 139 mg/dL 70-115 H If you con control system computer scientist your code = POCGLUC) patient crit ically ill, the [place] Accu- Chek InformII meters hould not be used for Glu cose determinations. Draw a venous Glucose and send to the Main Lab for Analysis. POC Glucose, [id number] 16:52:00 Test Item Value Reference Range Interpretation Comments POC Glucose (test 123 mg/dL 70-115 H If you con control system computer scientist your code = POCGLUC) patient crit ically ill, the [place] Accu- Chek InformII meters hould not be used for Glu cose determinations. Draw a venous Glucose and send to the Main Lab for Analysis. POC Glucose, [id number] 12:04:00 Test Item Value Reference Range Interpretation Comments POC Glucose (test 140 mg/dL 70-115 H If you con control system computer scientist your code = POCGLUC) patient crit ically ill, the [place] Accu- Chek InformII meters hould not be used for Glu cose determinations. Draw a venous Glucose and send to the Main Lab for Analysis. POC Glucose, [id number] 08:01:00 Test Item Value Reference Range Interpretation Comments POC Glucose (test 126 mg/dL 70-115 H If you con control system computer scientist your code = POCGLUC) patient crit ically ill, the [place] Accu- Chek InformII meters hould not be used for Glu cose determinations. Draw a venous Glucose and send to the Main Lab for Analysis. CK [id number] 06:03:00 Test Item Value Reference Range Interpretation Comments CK (test code = CK) na U/L 39-308 N CKMB (test code = CKMB) 2.8 ng/mL 0.0-4.9 N CKMB% (test code = CKMBP) 0.0 % 0.0-3.4 N Basic Metabolic [id number] 05:51:00 Test Item Value Reference Range Interpretation [...] the National Kidney Foundation,http ://nkd ep.nih.gov Magnesium, [id number] 05:51:00 Test Item Value Reference Range Interpretation Comments Magnesium (test code = MG) 1.9 mg/dL 1.7-2.5 N [id number] 05:51:00 Test Item Value Reference Range Interpretation Comments Phosphorus (test code = PO4) 3.8 mg/dL 2.70-4.50 N [id number] 05:51:00 Test Item Value Reference Range Interpretation Comments NT ProBnp (test code = PBNP) >24818 pg/mL 0-124 H Troponin [id number] 05:51:00 Test Item Value Reference Range Interpretation Comments Troponin T (test code = MADHAV) 0.126 ng/mL 0.000-0.090 H CBC with [id number] 05:34:00 Test Item Value Reference Range Interpretation [...] code = ALYMPH) 0.4 K/cumm 0.5-4.6 L [place] Abs (test code = AMONO) 0.6 K/cumm 0.0-1.2 N Eos Abs (test code = AEOS) 0.13 K/cumm 0.00-0.74 N Baso Abs (test code = ABASO) 0.0 K/cumm 0.00-0.21 N CK [id number] 18:39:00 Test Item Value Reference Range Interpretation Comments CK (test code = CK) HIDE U/L 39-308 N CKMB (test code = CKMB) 3.2 ng/mL 0.0-4.9 N CKMB% (test code = CKMBP) HIDE % 0.0-3.4 N Troponin [id number] 18:39:00 Test Item Value Reference Range Interpretation Comments Troponin T (test code = MADHAV) 0.126 ng/mL 0.000-0.090 H Hep B Surface [id number] 18:39:00 Test Item Value Reference Range Interpretation Comments Hep Bs Ag (test code = HBSAG) Nonreactive Non-Reactive A POC Glucose, [id number] 16:47:00 Test Item Value Reference Range Interpretation Comments POC Glucose (test 143 mg/dL 70-115 H If you con control system computer scientist your code = POCGLUC) patient crit ically ill, the [place] Accu- Chek InformII meters hould not be used for Glu cose determinations. Draw a venous Glucose and send to the Main Lab for Analysis. XR CHEST 1 [id number] 08:18:18EXAM: Portable AP chest x-rayLOCATION: R16 INDICATION: CoughCOMPARISON: 11/07/2017FINDINGS:The cardiacsilhouette is stable enlargement. There are increasinginterstitial opacities, most evident in the per ihilar regions and lowerlobes. There is blunting of the costophrenic angles bilaterally. Thereis no discernible pneumothorax.IMPRESSION:Increasing perihilar and bilateral lower lobe opacities compared to theprior exam dated 11/07/2017. Findings may represent pulmonary edema orpneumonia in the appropriate clinical setting.Comprehensive Metabolic [id number] 08:05:00 Test Item Value Reference Range Interpretation [...] the National Kidney Foundation,http ://nkd ep.nih.gov CK [id number] 08:05:00 Test Item Value Reference Range Interpretation Comments CK (test code = CK) 149 U/L 39-308 N Troponin [id number] 08:02:00 Test Item Value Reference Range Interpretation Comments Troponin T (test code = MADHAV) 0.114 ng/mL 0.000-0.090 H Izu-[id number] 08:02:00 Test Item Value Reference Range Interpretation Comments NT ProBnp (test code = PBNP) >83965 pg/mL 0-124 H CBC with [id number] 07:53:00 Test Item Value Reference Range Interpretation [...] code = ALYMPH) 0.9 K/cumm 0.5-4.6 N [place] Abs (test code = AMONO) 0.4 K/cumm 0.0-1.2 N Eos Abs (test code = AEOS) 0.11 K/cumm 0.00-0.74 N Baso Abs (test code = ABASO) 0.0 K/cumm 0.00-0.21 N XR CHEST 1 [id number] 21:38:09EXAM: CHEST ONE VIEWINDICATION: CoughCOMPARISON: October 06, 2017TECHNIQUE: AP view of the chest.FINDINGS: The cardiomediastinal silhouette is unchanged. Mild congestive changesbilaterally. No pneumothorax or pleural effusion is identified. Theosseous structures are unremarkable.IMPRESSION: Diffuse congestive changes bilaterally.LOCATION: R16[facility] [place], [id number] 20:09:34AFTER HOURS SERVICE ON: 10/06/2017 8:09 PMRIGHT Lower Extremity Venous Duplex Doppler ExaminationLocation Code A30Jkfanpy: SwellingTechnique: Real-time castillo scale, Doppler spectral analysis [...] Lower Extremity Venous Duplex Doppler ExaminationLocation Code H36Jltsa ry: SwellingTechnique: Real-time castillo scale, Doppler spectral [...] of DVT in the imaged vessels.Comprehensive Metabolic [id number] 17:40:00 Test Item Value Reference Range Interpretation [...] National Kidney Foundation,http ://nkd ep.nih.gov CBC with [id number] 17:15:00 Test Item Value Reference Range Interpretation [...] code = ALYMPH) 1.3 K/cumm 0.5-4.6 N [place] Abs (test code = AMONO) 0.6 K/cumm 0.0-1.2 N Eos Abs (test code = AEOS) 0.12 K/cumm 0.00-0.74 N Baso Abs (test code = ABASO) 0.0 K/cumm 0.00-0.21 N XR CHEST 1 [id number] 16:56:42CHEST 1 VIEW: [id number]: coughCOMPARISON:Sep 24, 2017FINDINGS:The heart is enlarged. There is engorgement of the central pulmonaryvasculature. There are patchy bibasilar areas of infiltrate oratelectasis with bilateral effusions. No pneumothorax is present. IMPRESSION: 1. Patchy areas of atelectasis or infiltrate in the lung bases withsmall bilateral effusions and vascular congestion most likely secondaryto CHF.Culture, Blood [id number] 14:58:00Specimen: BloodCollected: 09/24/2017 13:05 Status: Final Last Updated: 09/29/2017 14:58 (1) ER Bed 1 Culture Result (Final) (Final) No Growth After 5 DaysCulture, Blood [id number] 14:58:00Specimen: BloodCollected: 09/24/2017 12:50 Status: Final Last Updated: 09/29/2017 14:58 (1) ER Bed 1 Culture Result (Final) (Final) No Growth After 5 DaysPOC Glucose, [id number] 10:54:00 Test Item Value Reference Range Interpretation Comments POC Glucose (test 168 mg/dL 70-115 H If you con control system computer scientist your code = POCGLUC) patient crit ically ill, the [place] Accu- Chek InformII meters hould not be used for Glu cose determinations. Draw a venous Glucose and send to the Main Lab for Analysis. POC Glucose, [id number] 07:16:00 Test Item Value Reference Range Interpretation Comments POC Glucose (test 143 mg/dL 70-115 H If you con control system computer scientist your code = POCGLUC) patient crit ically ill, the [place] Accu- Chek InformII meters hould not be used for Glu cose determinations. Draw a venous Glucose and send to the Main Lab for Analysis. CBC with [id number] 07:15:00 Test Item Value Reference Range Interpretation [...] code = ALYMPH) 1.3 K/cumm 0.5-4.6 N [place] Abs (test code = AMONO) 0.7 K/cumm 0.0-1.2 N Eos Abs (test code = AEOS) 0.07 K/cumm 0.00-0.74 N Baso Abs (test code = ABASO) 0.0 K/cumm 0.00-0.21 N Magnesium, [id number] 07:03:00 Test Item Value Reference Range Interpretation Comments Magnesium (test code = MG) 2.0 mg/dL 1.7-2.5 N Basic Metabolic [id number] 07:03:00 Test Item Value Reference Range Interpretation [...] National Kidney Foundation,http ://nkd ep.nih.gov POC Glucose, [id number] 21:40:00 Test Item Value Reference Range Interpretation Comments POC Glucose (test 129 mg/dL 70-115 H If you con control system computer scientist your code = POCGLUC) patient crit ically ill, the [place] Accu- Chek InformII meters hould not be used for Glu cose determinations. Draw a venous Glucose and send to the Main Lab for Analysis. Hep B Surface [id number] 18:36:00 Test Item Value Reference Range Interpretation Comments Hep Bs Ag (test code = HBSAG) Nonreactive Non-Reactive A POC Glucose, [id number] 10:51:00 Test Item Value Reference Range Interpretation Comments POC Glucose (test 216 mg/dL 70-115 H If you con control system computer scientist your code = POCGLUC) patient crit ically ill, the [place] Accu- Chek InformII meters hould not be used for Glu cose determinations. Draw a venous Glucose and send to the Main Lab for Analysis. POC Glucose, [id number] 07:57:00 Test Item Value Reference Range Interpretation Comments POC Glucose (test 164 mg/dL 70-115 H If you con control system computer scientist your code = POCGLUC) patient crit ically ill, the [place] Accu- Chek InformII meters hould not be used for Glu cose determinations. Draw a venous Glucose and send to the Main Lab for Analysis. POC Glucose, [id number] 19:47:00 Test Item Value Reference Range Interpretation Comments POC Glucose (test 140 mg/dL 70-115 H Notify RN or MDIf you code = POCGLUC) consider you r patient critically ill, the [place] Accu-Chek InformII metershould not be used for Glucose determinations. Draw a venous Glucose and send to the Main Lab for Analysis. Troponin [id number] 19:36:00 Test Item Value Reference Range Interpretation Comments Troponin T (test code = MADHAV) 0.121 ng/mL 0.000-0.090 H CK [id number] 19:25:00 Test Item Value Reference Range Interpretation Comments CK (test code = CK) 160 U/L 39-308 N The valu e HIDE originally released by DEAN WATERS on 09/25/2017 19:1 2 waschanged to 1 60 by GINO on 09/25 19:24 CKMB (test code = 3.0 ng/mL 0.0-4.9 N CKMB) CKMB% (test code = 1.9 % 0.0-3.4 N The value HIDE originally CKMBP) released by [facility] on 09/25/2017 19:1 2 waschanged to 1 .9 by GINO on 09/25 19:24 POC Glucose, [id number] 16:42:00 Test Item Value Reference Range Interpretation Comments POC Glucose (test 123 mg/dL 70-115 H If you con control system computer scientist your code = POCGLUC) patient crit ically ill, the [facility] Accu- Chek InformII meters hould not be used for Glu cose determinations. Draw a venous Glucose and send to the Main Lab for Analysis. POC Glucose, [id number] 12:09:00 Test Item Value Reference Range Interpretation Comments POC Glucose (test 141 mg/dL 70-115 H If you con control system computer scientist your code = POCGLUC) patient crit ically ill, the [facility]eline Accu- Chek InformII meters hould not be used for Glu cose determinations. Draw a venous Glucose and send to the Main Lab for Analysis. Hep B Surface [id number] 07:59:00 Test Item Value Reference Range Interpretation Comments Hep Bs Ag (test code = HBSAG) Nonreactive Non-Reactive A CK [id number] 07:43:00 Test Item Value Reference Range Interpretation Comments CK (test code = CK) n/a U/L 39-308 N CKMB (test code = CKMB) 2.4 ng/mL 0.0-4.9 N CKMB% (test code = CKMBP) 0.0 % 0.0-3.4 N Troponin [id number] 07:38:00 Test Item Value Reference Range Interpretation Comments Troponin T (test code = MADHAV) 0.134 ng/mL 0.000-0.090 H Thyroid Stimulating Hormone (TSH)2017-09-25 07:38:00 Test Item Value Reference Range Interpretation Comments TSH (test code = TSH) 1.10 mIU/mL 0.270-4.200 N [id number] 07:38:00 Test Item Value Reference Range Interpretation Comments Phosphorus (test code = PO4) 3.4 mg/dL 2.70-4.50 N Comprehensive Metabolic [id number] 07:38:00 Test Item Value Reference Range Interpretation [...] the National Kidney Foundation,http ://nkd ep.nih.gov Magnesium, [id number] 07:38:00 Test Item Value Reference Range Interpretation Comments Magnesium (test code = MG) 2.0 mg/dL 1.7-2.5 N CK [id number] 07:31:00 Test Item Value Reference Range Interpretation Comments CK (test code = CK) 159 U/L 39-308 N Lipid [id number] 07:31:00 Test Item Value Reference Range Interpretation Comments Cholesterol (test 118 mg/dL 0-200 N code = CHOL) Triglycerides (test 170 mg/dL 9-200 N code = TRIG) HDL (test code = 49 mg/dL 40-60 N HDL) Chol/HDL (test code 2.4 Ratio 0.0-5.0 N = CHOLPHDL) LDL, Calculated 35 0-130 N (NOTE)RISK O F HEART (test code = LDLC) DISEASEPu blished by [place] Heart AssociationAnal yte Optim al Boderline Increased RiskC HOL <200 200-239 >240TRI G <150 150-199 >200HDL Male: >60 <40HDL Female: >60 <50 LDL < 100 130-15 9 >160 LDL NEAR OPTIMAL IS 100- 129 VLDL (test code = 34 mg/dL 5-40 N VLDL) LDL/HDL (test code = 1 LDLPHDL) Glycosylated [id number] 07:24:00 Test Item Value Reference Range Interpretation Comments HBA1c (test code = HBA1C) 5.0 % 4.8-5.9 N CBC with [id number] 07:20:00 Test Item Value Reference Range Interpretation [...] code = ALYMPH) 0.8 K/cumm 0.5-4.6 N [place] Abs (test code = AMONO) 0.5 K/cumm 0.0-1.2 N Eos Abs (test code = AEOS) 0.10 K/cumm 0.00-0.74 N Baso Abs (test code = ABASO) 0.0 K/cumm 0.00-0.21 N POC Glucose, [id number] 07:03:00 Test Item Value Reference Range Interpretation Comments POC Glucose (test 147 mg/dL 70-115 H If you con control system computer scientist your code = POCGLUC) patient crit ically ill, the [facility]eline Accu- Chek InformII meters hould not be used for Glu cose determinations. Draw a venous Glucose and send to the Main Lab for Analysis. POC Glucose, [id number] 22:05:00 Test Item Value Reference Range Interpretation Comments POC Glucose (test 134 mg/dL 70-115 H If you con control system computer scientist your code = POCGLUC) patient crit ically ill, the [facility]eline Accu- Chek InformII meters hould not be used for Glu cose determinations. Draw a venous Glucose and send to the Main Lab for Analysis. Blood Gas+Lytes+Glu+Ca+Hgb+Hct+[id number] 18:31:00 Test Item Value Reference Range Interpretation [...] (test code = alokrblvverqnscrit COMMENT) liz Pierre@ 35910/23figrrt Puncture Site (test code = Radial. R PUNSITE) Drawing Tech ID (test code gianfranco fi = DRAWTECH) iPAP (test code = IPAP) 0 cmH2O Respiratory Rate (test code 0 = RESP RATE) Lactic Acid, Blood Gas 0.4 mmol/L (test code = BGLA) CT CHEST W/O [id number] 16:48:03CT CHEST W/O CONTRASTLOCATION CODE: R16 HISTORY: [...] bilateral axillary, prevascular, andparatracheal lymph nodes.Influenza B [id number] 14:36:00Specimen: NasalCollected: 09/24/2017 14:04 Status: Final Last [...] Culture of negative samples is recommended.Influenza A [id number] 14:34:00Specimen: NasalCollected: 09/24/2017 14:04 Status: Final Last [...] Culture of negative samples is recommended.Comprehensive Metabolic [id number] 13:54:00 Test Item Value Reference Range Interpretation [...] the National Kidney Foundation,http ://nkd ep.nih.gov Troponin [id number] 13:54:00 Test Item Value Reference Range Interpretation Comments Troponin T (test code = MADHAV) 0.124 ng/mL 0.000-0.090 H [id number] 13:54:00 Test Item Value Reference Range Interpretation Comments NT ProBnp (test code = PBNP) >56583 pg/mL 0-124 H CK [id number] 13:54:00 Test Item Value Reference Range Interpretation Comments CK (test code = CK) 222 U/L 39-308 N CKMB (test code = CKMB) 3.1 ng/mL 0.0-4.9 N CKMB% (test code = CKMBP) 1.4 % 0.0-3.4 N CK [id number] 13:54:00 Test Item Value Reference Range Interpretation Comments CK (test code = CK) 222 U/L 39-308 N Partial Thromboplastin [id number] 13:43:00 Test Item Value Reference Range Interpretation Comments aPTT (test code = PTT) 35.70 seconds 24.39-37.25 N Prothrombin [id number] 13:43:00 Test Item Value Reference Range Interpretation Comments PT (test code = PT) 11.30 seconds 9.78-13.35 N INR (test code = INR) 0.99 Ratio 0.6-1.2 N Lactic Acid [id number] 13:41:00 Test Item Value Reference Range Interpretation Comments Lactic Acid, Bld (test code = LAC) 1.3 mmol/L 0.5-1.9 N CBC with [id number] 13:32:00 Test Item Value Reference Range Interpretation [...] code = ALYMPH) 1.2 K/cumm 0.5-4.6 N [place] Abs (test code = AMONO) 0.6 K/cumm 0.0-1.2 N Eos Abs (test code = AEOS) 0.23 K/cumm 0.00-0.74 N Baso Abs (test code = ABASO) 0.0 K/cumm 0.00-0.21 N XR CHEST 1 [id number] 12:50:14XR CHEST 1 VIEWLOCATION: [id number]: None.INDICATION: CoughDISCUSSION:A single portable chest radiograph was [...] greater thanleft.3. Enlarged cardiac silhouette.T-helper cells (CD4) [id number] 09:09:50 Test Item Value Reference Range Interpretation Comments T-helper cells (CD4) count (test code 602 uL = 73007-1) [facility], [id number] 09:09:49 Test Item Value Reference Range Interpretation Comments HIV-1RNA, serum, by PCR, quantitative 20 /mL (test code = 13803) [facility]
[2021-08-13 22:25] LABS: Protime INR 1.15
[2021-08-13 22:33] LABS: Absolute Lymphocytes (CBC) 0.7 K/uL (0.7-4.9); Basophils % 0.8 % (0-1.3); Lymphocytes % 13.4 % (15.3-44.8); MPV 7.1 fL (7.6-11.3); RBC Red Blood Cell Count 3.88 M/uL (4.33-5.43)
[2021-08-13 22:55] LABS: Albumin 3.6 g/dL (3.4-5.0); Bilirubin Direct 0.3 mg/dL (0-0.2); Bilirubin Total 0.9 mg/dL (0.2-1.0); Potassium 3.8 mmol/L (3.5-5.1); Protein, Total 8.4 g/dL (6.4-8.2); Troponin (Emerg Dept Use Only) 0.06 ng/mL (0.0-0.045)
[2021-08-13] MEDS ORDERED: NA CHLORIDE 0.9% 250 ML ONE (22:57)
--- NOTE | 2021-08-13 23:10 | EDPHYS ---
Physician Documentation [facility] Name: Salvatore Goldman Age: 66 yrs Sex: Male : 1955 Arrival Date: 08/13/2021 Time: 19:31 Bed 10 Private MD: ED Physician Boston Johnson HPI: 08/13 21:57 This 66 yrs old Black Male presents to ER via Ambulatory with complaints of Chest Pain, beny Diarrhea. Historical: - Allergies: 22:19 No Known Allergies; bb - Immunization history:: Client reports receiving the 2nd dose of the Covid vaccine. - Social history:: Smoking status: Patient denies any tobacco usage or history of. ROS: 21:58 Constitutional: Negative for fever, chills, and weight loss, Eyes: Negative for injury, beny pain, redness, and discharge, ENT: Negative for injury, pain, and discharge, Neck: Negative for injury, pain, and swelling, Cardiovascular: Negative for chest pain, palpitations, and edema, Respiratory: Negative for shortness of breath, cough, wheezing, and pleuritic chest pain, Back: Negative for injury and pain, : Negative for injury, bleeding, discharge, and swelling, MS/Extremity: Negative for injury and deformity, Skin: Negative for injury, rash, and discoloration, Neuro: Negative for headache, weakness, numbness, tingling, and seizure, Psych: Negative for depression, anxiety, suicide ideation, homicidal ideation, and hallucinations, Allergy/Immunology: Negative for hives, rash, and allergies, Endocrine: Negative for neck swelling, polydipsia, polyuria, polyphagia, and marked weight changes, Hematologic/Lymphatic: Negative for swollen nodes, abnormal bleeding, and unusual bruising. 21:58 Abdomen/GI: Positive for abdominal pain, nausea and vomiting, diarrhea, of the right lower quadrant and left lower quadrant. Exam: 21:58 Constitutional: This is a well developed, well nourished patient who is awake, alert, beny and in no acute distress. Head/Face: Normocephalic, atraumatic. Eyes: Pupils equal round and reactive to light, extra-ocular motions intact. Lids and lashes normal. Conjunctiva and sclera are non-icteric and not injected. Cornea within normal limits. Periorbital areas with no swelling, redness, or edema. ENT: Nares patent. No nasal discharge, no septal abnormalities noted. Tympanic membranes are normal and external auditory canals are clear. Oropharynx with no redness, swelling, or masses, exudates, or evidence of obstruction, uvula midline. Mucous membranes moist. Neck: Trachea midline, no thyromegaly or masses palpated, and no cervical lymphadenopathy. Supple, full range of motion without nuchal rigidity, or vertebral point tenderness. No Meningismus. Chest/axilla: Normal chest wall appearance and motion. Nontender with no deformity. No lesions are appreciated. Cardiovascular: Regular rate and rhythm with a normal S1 and S2. No gallops, murmurs, or rubs. Normal PMI, no JVD. No pulse deficits. Respiratory: Lungs have equal breath sounds bilaterally, clear to auscultation and percussion. No rales, rhonchi or wheezes noted. No increased work of breathing, no retractions or nasal flaring. Back: No spinal tenderness. No costovertebral tenderness. Full range of motion. Skin: Warm, dry with normal turgor. Normal color with no rashes, no lesions, and no evidence of cellulitis. MS/ Extremity: Pulses equal, no cyanosis. Neurovascular intact. Full, normal range of motion. Neuro: Awake and alert, GCS 15, oriented to person, place, time, and situation. Cranial nerves II-XII grossly intact. Motor strength 5/5 in all extremities. Sensory grossly intact. Cerebellar exam normal. Normal gait. Psych: Awake, alert, with orientation to person, place and time. Behavior, mood, and affect are within normal limits. 21:58 ECG was reviewed by the Attending Physician. 21:58 Abdomen/GI: Inspection: abdomen appears normal, Bowel sounds: active, Palpation: mild abdominal tenderness, in the right lower quadrant and left lower quadrant, Liver: no appreciated palpable abnormalities, Hernia: not appreciated. Vital Signs: 19:58 BP 173 / 83; Pulse 80; Resp 18; Temp 98.4; Pulse Ox 96% ; Weight 70.31 kg; Height 5 ft. da3 7 in. (170.18 cm); 21:45 BP 176 / 89; Pulse 87; Resp 21; Temp 98.2; Pulse Ox 98% ; lt3 22:40 BP 176 / 89; Pulse 81; Resp 22 S; Pulse Ox 100% on R/A; bb 12/13 00:01 BP 153 / 95; Pulse 80; Resp 22 S; Pulse Ox 98% on R/A; 00:14 BP 170 / 93; Pulse 80; Resp 22 S; Pulse Ox 98% on R/A; 08/13 19:58 Body Mass Index 24.28 (70.31 kg, 170.18 cm) da3 MDM: 08/13 21:30 Patient medically screened. [facility] 22:00 Differential diagnosis: diverticulitis, viral gastroenteritis, gastroenteritis, bowel beny obstruction, Cholelithiasis, diverticulitis, non-specific abd pain, pancreatitis, Peptic Ulcer Disease. Data reviewed: vital signs, nurses notes, lab test result(s), EKG, radiologic studies, CT scan, plain films. Data interpreted: sealer sander: rate is 87 beats/min, rhythm is regular, Pulse oximetry: on room air is 98 %. Test interpretation: by ED physician or midlevel provider: ECG, plain radiologic studies. Counseling: I had a detailed discussion with the patient and/or guardian regarding: the historical points, exam findings, and any diagnostic results supporting the discharge/admit diagnosis, lab results, radiology results. 08/13 21:28 Order name: Basic Metabolic Panel; Complete Time: 23:02 08/13 21:28 Order name: CBC with Diff; Complete Time: 23:02 08/13 21:28 Order name: LFT's; Complete Time: 23:02 08/13 21:28 Order name: Magnesium; Complete Time: 23:02 08/13 21:28 Order name: NT PRO-BNP; Complete Time: 23:02 08/13 21:28 Order name: PT-INR; Complete Time: 23:02 08/13 21:28 Order name: Troponin (emerg Dept Use Only); Complete Time: 22:56 08/13 21:57 Order name: Fecal Leukocyte Stain [facility] 08/13 21:57 Order name: Stool Culture [facility] 08/13 21:58 Order name: Fecal Leukocyte Stain [facility] 08/13 21:58 Order name: Stool Culture [facility] 08/13 22:21 Order name: Lipase; Complete Time: 23:02 [facility] 08/13 23:32 Order name: COVID-19 SARS RT PCR (Document "Date of Onset" if Symptomatic) 3 08/13 21:28 Order name: XRAY Chest (1 view) 08/13 21:28 Order name: EKG; Complete Time: 21:28 08/13 21:28 Order name: Cardiac monitoring; Complete Time: 23:39 08/13 21:28 Order name: EKG - Nurse/Tech; Complete Time: 22:20 08/13 21:28 Order name: IV Saline Lock; Complete Time: 22:20 08/13 21:28 Order name: Labs collected and sent; Complete Time: 22:20 08/13 21:28 Order name: O2 Per Protocol; Complete Time: 22:20 08/13 21:28 Order name: O2 Sat Monitoring; Complete Time: 22:20 08/13 21:56 Order name: CT Abd/Pelvis - Without Contrast [facility] 08/13 23:32 Order name: SARS-COV-2 RT PCR EDMS EC:58 Rate is 87 beats/min. Rhythm is regular. QRS Neon is Normal. RI interval is normal. QRS beny interval is normal. QT interval is normal. No Q waves. T waves are Normal. No ST changes noted. Clinical impression: NSR w/ Non-specific ST/T Changes and No evidence of ischemia. Interpreted by me. Reviewed by me. Administered Medications: 23:02 Drug: NS 0.9% 250 ml Route: IV; Rate: bolus; Site: right antecubital; bb 23:52 Follow up: IV Status: Completed infusion; IV Intake: 250ml 23:13 Drug: Aspirin 162 mg Route: PO; bb 23:52 Follow up: Response: No adverse reaction 08/14 01:21 Drug: ProTONIX (pantoprazole) 40 mg Route: IVP; Site: right antecubital; bb Disposition Summary: 08/13/21 23:09 Hospitalization Ordered Hospitalization Status: Observation beny Location: Telemetry/MedSurg (observation) beny Condition: Fair beny Problem: new beny Symptoms: have improved beny Bed/Room Type: Standard beny Provider: Cayla Jorge(08/13/21 23:11) la1 Room Assignment: 207(08/14/21 00:23) cg Diagnosis - Vomiting beny - Diarrhea, unspecified beny - End stage renal disease - on HD beny - Chest pain, unspecified beny - Unspecified combined systolic (congestive) and diastolic (congestive) heart failure beny - Cardiomegaly beny - Duodenitis beny - Other cholelithiasis without obstruction beny Forms: - Medication Reconciliation Form beny - SBAR form beny Signatures: Dispatcher [employer] EDMS Boston Johnson MD MD cha Ballard, Brenda, RN RN Brad Herrera, SALMON TROLL FISHER-C SALMON TROLL FISHER-Cla1 Aliza Durán RN RN cg Du Self RN RN da3 Corrections: (The following items were deleted from the chart) 08/13 22:20 21:56 LIPASE+C.LAB.BRZ ordered. EDME EDMS 23:11 23:09 YeseniaScout courtney beny la1 08/14 00:23 12 23:09 beny muse
--- NOTE | 2021-08-13 23:10 | ER ---
Nurse's Notes [facility] Name: Salvatore Goldman Age: 66 yrs Sex: Male : 1955 Arrival Date: 08/13/2021 Time: 19:31 Bed 10 Private MD: Diagnosis: Vomiting;Diarrhea, unspecified;End stage renal disease-on HD;Chest pain, unspecified;Unspecified combined systolic (congestive) and diastolic (congestive) heart failure;Cardiomegaly;Duodenitis;Other cholelithiasis without obstruction Presentation: 08/13 19:58 Chief complaint: Patient states: diarrhea, ABD discomfort. Coronavirus screen: Vaccine da3 status: Patient reports receiving the 2nd dose of the covid vaccine. Ebola Screen: No symptoms or risks identified at this time. Initial Sepsis Screen: Does the patient meet any 2 criteria? No. Patient's initial sepsis screen is negative. Does the patient have a suspected source of infection? No. Patient's initial sepsis screen is negative. Risk Assessment: Do you want to hurt yourself or someone else? Patient reports no desire to harm self or others. Onset of symptoms was August 12, 2021. 19:58 Method Of Arrival: Ambulatory da3 19:58 Acuity: NARDA 3 da3 Triage Assessment: 19:58 General: Appears in no apparent distress. comfortable, Behavior is calm, cooperative. da3 Cardiovascular: No deficits noted. Historical: - Allergies: 22:19 No Known Allergies; bb - Immunization history:: Client reports receiving the 2nd dose of the Covid vaccine. - Social history:: Smoking status: Patient denies any tobacco usage or history of. Screenin:19 Abuse screen: Denies threats or abuse. Nutritional screening: No deficits noted. bb Tuberculosis screening: No symptoms or risk factors identified. Fall Risk None identified. Assessment: 22:16 General: Appears in no apparent distress. emaciated, Behavior is calm, cooperative. bb Pain: Complains of pain in abdomen Pain does not radiate. Pain began suddenly. Neuro: Level of Consciousness is awake, alert, obeys commands, Oriented to person, place, time, situation. Cardiovascular: Capillary refill < 3 seconds Patient's skin is warm and dry. Respiratory: Respiratory effort is even, unlabored, Respiratory pattern is regular. GI: Abdomen is round Reports diarrhea. Derm: Skin is dry, Skin is normal. Musculoskeletal: Circulation, motion, and sensation intact. 23:10 Reassessment: Patient is alert, oriented x 3, equal unlabored respirations, skin bb warm/dry/pink. resting quietly. 08/14 00:00 Reassessment: Patient is alert, oriented x 3, equal unlabored respirations, skin bb warm/dry/pink. IV site intact with no erythema or edema noted. 01:16 Reassessment: Patient is alert, oriented x 3, equal unlabored respirations, skin bb warm/dry/pink. report called to Becky COMBS for room 207. Vital Signs: 08/13 19:58 BP 173 / 83; Pulse 80; Resp 18; Temp 98.4; Pulse Ox 96% ; Weight 70.31 kg; Height 5 ft. da3 7 in. (170.18 cm); 21:45 BP 176 / 89; Pulse 87; Resp 21; Temp 98.2; Pulse Ox 98% ; lt3 22:40 BP 176 / 89; Pulse 81; Resp 22 S; Pulse Ox 100% on R/A; bb 08/14 00:01 BP 153 / 95; Pulse 80; Resp 22 S; Pulse Ox 98% on R/A; bb 00:14 BP 170 / 93; Pulse 80; Resp 22 S; Pulse Ox 98% on R/A; bb 08/13 19:58 Body Mass Index 24.28 (70.31 kg, 170.18 cm) da3 ED Course: 08/13 19:31 Patient arrived in ED. kc5 19:58 Arm band placed on left wrist. da3 20:00 Triage completed. da3 21:29 Boston Rasheed PA is PHCP. cp 21:29 Boston Johnson MD is Attending Physician. cp 21:30 Boston Johnson MD is Attending Physician. beny 21:40 EKG done, by ED staff, reviewed by Boston Johnson MD. lt3 22:10 Initial lab(s) drawn, by wi, sent to lab. Inserted saline lock: 20 gauge in right bb antecubital area, using aseptic technique. Blood collected. 22:16 Zunilda Loomis, LAURYN is Primary Nurse. bb 22:19 Patient has correct armband on for positive identification. campus monitor on. Pulse bb ox on. NIBP on. 22:36 CT Abd/Pelvis - Without Contrast In Process Unspecified. EDMS 22:54 XRAY Chest (1 view) In Process Unspecified. EDMS 23:08 Scout Carr DO is Hospitalizing Provider. [facility] 23:11 Cayla Jorge MD is Hospitalizing Provider. la1 23:38 COVID swab sent to lab. lt3 23:38 COVID-19 SARS RT PCR (Document "Date of Onset" if Symptomatic) Sent. lt3 08/14 00:18 Patient maintains SpO2 saturation greater than 95% on room air. bb 00:18 Patient admitted, IV remains in place. bb 01:17 No provider procedures requiring assistance completed. bb Administered Medications: 08/13 23:02 Drug: NS 0.9% 250 ml Route: IV; Rate: bolus; Site: right antecubital; bb 23:52 Follow up: IV Status: Completed infusion; IV Intake: 250ml bb 23:13 Drug: Aspirin 162 mg Route: PO; bb 23:52 Follow up: Response: No adverse reaction 08/14 01:21 Drug: ProTONIX (pantoprazole) 40 mg Route: IVP; Site: right antecubital; bb Intake: 08/13 23:52 IV: 250ml; Total: 250ml. bb Outcome: 23:09 Decision to Hospitalize by Provider. [facility] 08/14 00:17 Instructed on the need for admit. bb 01:16 Admitted to Tele accompanied by tech, via stretcher, room 207, with chart, Report bb called to Becky COMBS 01:17 Condition: stable bb 01:30 Patient left the ED. bb Signatures: Dispatcher [employer] EDBoston Morgan MD MD cha Ballard, Brenda, RN RN bb Brad Israel, LAB ANIMAL TECHNOLOGIST-C LAB ANIMAL TECHNOLOGIST-Cla1 Boston Rasheed PA PA cp Allan, David, RN RN Viki Brito 5 Sejal Laird lt3
[2021-08-13] MEDS ORDERED: ASPIRIN 81 MG CHEWABLE TABLET ONE (23:15)
--- NOTE | 2021-08-13 23:53 | P.HP ---
Certification for Inpatient Patient admitted to: Observation With expected LOS: <2 Midnights Patient will require the following post-hospital care: None Practitioner: I am a practitioner with admitting privileges, knowledge of patient current condition, hospital course, and medical plan of care. Services: Services provided to patient in accordance with Admission requirements found in Title 42 Section 412.3 of the Code of Federal Regulations <Brad Israel - Last Filed: 08/13/21 23:48> Patient History Date of Service: 08/13/21 Primary Care Provider: HIV clinic, nephrology Dr. Washburn Reason for admission: Chest pain, diarrhea History of Present Illness: 66-year-old -[place] male with history of HIV, ESRD on HD TTS, hepatitis C, cirrhosis of liver, diabetes mellitus type 2, hypertension, hyperlipidemia, mechanical heart valve on chronic anticoagulation therapy with Coumadin presents to the emergency department for chest pain and diarrhea. Patient reports last 2 days he had ongoing chest pain unable to describe quality but reports across both sides of her chest rating to the back associated with some shortness of breath. Patient also reports lower abdominal pain and diarrhea for the last 2 days. Patient reports up to 15 episodes of diarrhea today. Patient also scheduled for laser eye surgery on this coming Saturday supposed to have dialysis tomorrow in preparation for this. Patient was evaluated in the emergency department labs were significant for hemoglobin 1.9 hematocrit 37 platelet count 105 creatinine 6.55 GFR 10 BUN 30 1T bili 0.3 BNP 116,541 troponin 0.[address] abdomen pelvis without contrast demonstrates mild inflammation of the first and second portions of the duodenum likely reflecting peptic ulcer disease no evidence of perforation or obstruction no other acute abdominal findings noted. Stool culture and other studies have been ordered. Patient given Protonix in the emergency department, ED provider wishes to admit under observation for ACS rule out as well as diarrhea. - Past Medical/Surgical History Diabetic: Yes -: HIV-AIDS -: Hepatitis C -: Chronic anti coagulation therapy -: Hypertension -: Karposi Sarcoma of the LLE -: Mechanical heart valve on Coumadin -: Cirrhosis -: ESRD on HD Saturday -: Diabetes mellitus type 2 -: AV fistula to the LUE -: Mitral Valve Replacement, mechanical Psychosocial/ Personal History: He has been with his current partner for years, 7-children, Disabled. - Family History Father -: Diabetes, Other (see notes) Notes: bilateral amputee Mother -: Heart disease, Hypertension, Stroke - Social History Smoking Status: Never smoker Alcohol use: No CD- Drugs: No Caffeine use: Yes Place of Residence: Home <Brad Israel - Last Filed: 08/13/21 23:48> Date of Service: 08/14/21 <Cayla Jorge - Last Filed: 08/16/21 08:00> Allergies No Known Allergies Allergy (Verified 06/20/21 21:29) Home Medications: Lamivudine [Epivir] 2.5 ml PO DAILY 02/18/18 Lopinavir/Ritonavir [Kaletra 200-50 MG Tablet*] 2 tab PO BID 05/17/18 Raltegravir Potassium [Isentress*] 400 mg PO BID 05/17/18 Folic Acid/Vit B Complex and C [Daija-Kodak Tablet] 1 tab PO DAILY 05/18/18 Atropine 1% Opth Alicia [Atropine 1% Opth Alicia*] 1 drop OP DAILY 06/21/21 Cholecalciferol (Vitamin D3) [Vitamin D 5,000 IU Cap*] 5,000 unit PO SEECOM 06/21/21 Pantoprazole [Protonix Tab*] 40 mg PO DAILY 06/21/21 Prednisolone Acetate/Pf [Prednisolone Acet 1% Eye Drop] 1 drop OP QID 06/21/21 Tramadol HCl [Ultram] 50 mg PO Q8H PRN 06/21/21 Warfarin Sodium 1.5 tab PO SEECOM 06/21/21 Warfarin Sodium 10 mg PO SEECOM 06/21/21 carvediloL [Coreg*] 12.5 mg PO BID 06/21/21 Amox/Clavulanate [Augmentin 500-125 mg Tab*] 500 mg PO BEDTIME #5 tab 06/22/21 Benzonatate [Tessalon Perle*] 100 mg PO TID PRN #30 cap 06/22/21 Heparin [Heparin 1,000 units/mL *] 6,000 unit IV EVERY HD PRN vial 06/22/21 Mannitol 25% [Mannitol*] 12.5 gm IV EVERY HD PRN vial 06/22/21 Atorvastatin Calcium [Lipitor*] 20 mg PO BEDTIME #30 tab 08/14/21 Review of Systems 10-point ROS is otherwise unremarkable Cardiovascular: Chest Pain Gastrointestinal: Nausea, Abdominal Pain, Diarrhea <Brad Israel - Last Filed: 08/13/21 23:48> Physical Examination - Physical Exam General: Alert, In no apparent distress, Oriented x3 HEENT: Atraumatic, PERRLA, Mucous membr. moist/pink, EOMI, Sclerae nonicteric Neck: Supple, 2+ carotid pulse no bruit, No LAD, Without JVD or thyroid abnormality Respiratory: Crackles/rales Cardiovascular: Regular rate/rhythm, Normal S1 S2 Capillary refill: <2 Seconds Gastrointestinal: Soft and benign, No masses, No rebound, No guarding, Hyperactive Musculoskeletal: No tenderness Integumentary: No rashes Neurological: Normal speech, Normal strength at 5/5 x4 extr, Normal tone, Normal affect - Studies Laboratory Data (last 24 hrs) 08/13/21 22:10: PT 13.3 H, INR 1.15 08/13/21 22:10: WBC 4.90 D, Hgb 11.9 L, Hct 37.0 L D, Plt Count 105 L D 08/13/21 22:10: Sodium 139, Potassium 3.8, BUN 31 H, Creatinine 6.55 H*, Glucose 91, Magnesium 2.0, Total Bilirubin 0.9, AST 24, ALT 16, Alkaline Phosphatase 61, Lipase 170 08/13/21 21:56: Lipase Cancelled <Brad Israel - Last Filed: 08/13/21 23:48> Assessment and Plan - Plan Assessment: Chest pain ACS rule out History of mechanical mitral valve on chronic anticoagulation therapy with Coumadin Abdominal pain, diarrhea ESRD on HD TTS Cirrhosis of liver secondary to hepatitis C HIV Diabetes mellitus type 2 [id number] Hypertension Hyperlipidemia Plan: Chest pain ACS rule out: Trend troponin, monitor on telemetry, cardiology consulted continue aspirin, beta-megan, statin therapy. Patient had recent transesophageal echocardiogram at [facility] in [place] will attempt to obtain results. History of mechanical mitral valve on chronic anticoagulation therapy with Coumadin: Patient currently holding Coumadin as he is supposed to have surgery to his eye on Saturday. We will continue to monitor on telemetry. Patient reports he had a recent transesophageal echocardiogram which was within normal limits. Will attempt to obtain results. Abdominal pain, diarrhea: Abdomen soft, nontender on exam, will continue probiotics and obtain stool studies including C. difficile. Will hold off on IV fluids given dialysis status. ESRD on HD TTS: Nephrology consulted, patient reports that he is supposed to have dialysis tomorrow in preparation for right eye surgery. Cirrhosis of liver secondary to hepatitis C: Stable from baseline HIV: Obtain and continue medication, patient to follow-up with HIV clinic on outpatient basis for further management. Diabetes mellitus type 2 [id number]: ACH is Accu-Chek, sliding scale insulin therapy. Hypertension: Continue carvedilol Hyperlipidemia: Continue atorvastatin. DVT PPX: Heparin Code status: Full code Discharge Plan: Home Plan to discharge in: 24 Hours - Advance Directives Does patient have a Living Will: Yes Does patient have a Durable POA for Healthcare: No - Code Status/Comfort Care Code Status Assessed: Yes (Full code) Critical Care: No Time Spent Managing Pts Care (In Minutes): 55 <Brad Israel - Last Filed: 08/13/21 23:48> Date of Service: 08/14/21 Subjective: Agree with the HPI as mentioned above Physical Examination: Vitals: Afebrile vital signs are stable Physical exam: Cardiovascular: Within normal limits. Lungs: Within normal limits Abdomen: Within normal limits Neuro: Awake, alert, oriented to person place and time Assessment/Plan: 1. Agree with plan of care as mentioned above <Cayla Jorge - Last Filed: 08/16/21 08:00>
[2021-08-14] MEDS ORDERED: ONDANSETRON 4 MG/2 ML VIAL IV PRN (00:48)
[2021-08-14] MEDS ORDERED: SODIUM CHLORIDE 0.9% 10ML INJ IV PRN (00:48)
[2021-08-14] MEDS ORDERED: PANTOPRAZOLE 40 MG INJ ONE (01:23)
[2021-08-14 01:40] VITALS: O2SAT 98
[2021-08-14 02:00] VITALS: BMI 24.7
[2021-08-14] MEDS ORDERED: BENZONATATE 100 MG CAP PO PRN (05:29)
[2021-08-14 05:42] LABS: Absolute Lymphocytes (CBC) 0.8 K/uL (0.7-4.9); Basophils % 0.8 % (0-1.3); Hematocrit 31.5 % (39.6-49.0); Lymphocytes % 18.1 % (15.3-44.8)
[2021-08-14] MEDS ORDERED: carvediloL 25 MG TAB PO SCH (06:00)
[2021-08-14 06:15] LABS: Bilirubin Total 0.8 mg/dL (0.2-1.0); Potassium 3.8 mmol/L (3.5-5.1); Protein, Total 7.1 g/dL (6.4-8.2); Thyroid Stimulating Hormone 1.38 uIU/mL (0.360-3.740); Troponin I 0.02 ng/mL (0.0-0.045)
[2021-08-14] MEDS: INSULIN -REGULAR HUMAN 50 UNIT/0.5 ML ML SQ SCH ×3 (07:30→16:30)
[2021-08-14 07:32] LABS: Blood Morphology Comment NOT SEEN (NOT SEEN); Platelet Estimate DECR
--- NOTE | 2021-08-14 07:34 | RAD REPORT ---
EXAM DESCRIPTION: Segun Single View08/13/2021 10:54 pm CLINICAL HISTORY: Chest pain COMPARISON: July 2021 FINDINGS: Heart is markedly enlarged. Small bilateral pleural effusions with bibasilar atelectasis. Mild interstitial pulmonary edema is suspected. Postsurgical changes involve the chest
[2021-08-14] MEDS ORDERED: PNEUMOCOCCAL VACCINE 0.5 ML IMVAC ONE (08:00)
[2021-08-14] MEDS ORDERED: PANTOPRAZOLE 40 MG INJ IVP SCH (09:00)
[2021-08-14] MEDS ORDERED: ASPIRIN EC 81 MG TAB PO SCH (09:00)
[2021-08-14] MEDS ORDERED: HEPARIN 5000 UNIT/ML 1 ML VIAL SQ SCH (09:00)
--- NOTE | 2021-08-14 10:09 | P.CNS ---
Date of Consult: 08/14/21 Reason for Consult: ESRD Requesting Physician: Cayla Jorge Primary Care Provider: HIV clinic, nephrology Dr. Washburn Chief Complaint: Chest pain, diarrhea History of Present Illness: 66-year-old -Citizen Of [place] male with history of HIV, ESRD on HD TTS, hepatitis C, cirrhosis of liver, diabetes mellitus type 2, hypertension, hyperlipidemia, mechanical heart valve on chronic anticoagulation therapy with Coumadin presents to the emergency department for chest pain and diarrhea. Patient reports last 2 days he had ongoing chest pain unable to describe quality but reports across both sides of her chest rating to the back associated with some shortness of breath. Patient also reports lower abdominal pain and diarrhea for the last 2 days. Patient reports up to 15 episodes of diarrhea today. Patient also scheduled for laser eye surgery on this coming Saturday supposed to have dialysis tomorrow in preparation for this. Patient was evaluated in the emergency department labs were significant for hemoglobin 1.9 hematocrit 37 platelet count 105 creatinine 6.55 GFR 10 BUN 30 1T bili 0.3 BNP 116,541 troponin 0.[address] abdomen pelvis without contrast demonstrates mild inflammation of the first and second portions of the duodenum likely reflecting peptic ulcer disease no evidence of perforation or obstruction no other acute abdominal findings noted. Stool culture and other studies have been ordered. Patient given Protonix in the emergency department, ED provider wishes to admit under observation for ACS rule out as well as diarrhea. 21:57 This 66 yrs old Black Male presents to ER via Ambulatory with complaints of Chest Pain, beny Diarrhea. Allergies No Known Allergies Allergy (Verified 06/20/21 21:29) Home medications list reviewed: Yes Home Medications: Lamivudine [Epivir] 2.5 ml PO DAILY 02/18/18 Lopinavir/Ritonavir [Kaletra 200-50 MG Tablet*] 2 tab PO BID 05/17/18 Raltegravir Potassium [Isentress*] 400 mg PO BID 05/17/18 Folic Acid/Vit B Complex and C [Daija-Kodak Tablet] 1 tab PO DAILY 05/18/18 Atropine 1% Opth Alicia [Atropine 1% Opth Alicia*] 1 drop OP DAILY 06/21/21 Cholecalciferol (Vitamin D3) [Vitamin D 5,000 IU Cap*] 5,000 unit PO SEECOM 06/21/21 Pantoprazole [Protonix Tab*] 40 mg PO DAILY 06/21/21 Prednisolone Acetate/Pf [Prednisolone Acet 1% Eye Drop] 1 drop OP QID 06/21/21 Tramadol HCl [Ultram] 50 mg PO Q8H PRN 06/21/21 Warfarin Sodium 1.5 tab PO SEECOM 06/21/21 Warfarin Sodium 10 mg PO SEECOM 06/21/21 carvediloL [Coreg*] 12.5 mg PO BID 06/21/21 Amox/Clavulanate [Augmentin 500-125 mg Tab*] 500 mg PO BEDTIME #5 tab 06/22/21 Benzonatate [Tessalon Perle*] 100 mg PO TID PRN #30 cap 06/22/21 Heparin [Heparin 1,000 units/mL *] 6,000 unit IV EVERY HD PRN vial 06/22/21 Mannitol 25% [Mannitol*] 12.5 gm IV EVERY HD PRN vial 06/22/21 Atorvastatin Calcium [Lipitor*] 20 mg PO BEDTIME #30 tab 08/14/21 - Past Medical/Surgical History Diabetic: Yes -: HIV-AIDS -: Hepatitis C -: Chronic anti coagulation therapy -: Hypertension -: Karposi Sarcoma of the LLE -: Mechanical heart valve on Coumadin -: Cirrhosis -: ESRD on HD Saturday -: Diabetes mellitus type 2 -: AV fistula to the LUE -: Mitral Valve Replacement, mechanical Psychosocial/ Personal History: He has been with his current partner for years, 7-children, Disabled. - Family History Father Medical History: Diabetes, Other (see notes) Notes: bilateral amputee Mother Medical History: Heart disease, Hypertension, Stroke - Social History Smoking Status: Former smoker Alcohol use: No CD- Drugs: No Caffeine use: No Place of Residence: Home Review of Systems 10-point ROS is otherwise unremarkable General: Weakness Cardiovascular: Chest Pain, Edema Physical Examination Temp Pulse Resp BP Pulse Ox 97.6 F 86 17 168/87 H 93 08/14/21 08:00 08/14/21 08:00 08/14/21 08:00 08/14/21 08:00 08/14/21 08:00 General: In no apparent distress, Cooperative Neck: Supple Respiratory: Clear to auscultation bilaterally Cardiovascular: Regular rate/rhythm, Edema Gastrointestinal: Soft and benign, Non-distended Musculoskeletal: No clubbing, No contractures Integumentary: No rashes, No cyanosis Neurological: Normal speech Laboratory Data (last 24 hrs) 08/13/21 22:10: PT 13.3 H, INR 1.15 08/13/21 22:10: WBC 4.90 D, Hgb 11.9 L, Hct 37.0 L D, Plt Count 105 L D 08/13/21 22:10: Sodium 139, Potassium 3.8, BUN 31 H, Creatinine 6.55 H*, Glucose 91, Magnesium 2.0, Total Bilirubin 0.9, AST 24, ALT 16, Alkaline Phosphatase 61, Lipase 170 08/13/21 21:56: Lipase Cancelled Imagings Data: EXAM DESCRIPTION: Gilt Single View08/13/2021 10:54 pm CLINICAL HISTORY: Chest pain COMPARISON: July 2021 FINDINGS: Heart is markedly enlarged. Small bilateral pleural effusions with bibasilar atelectasis. Mild interstitial pulmonary edema is suspected. Postsurgical changes involve the chest Conclusions/Impression: ESRD -Acute HD today HTN with CKD/ CHF -Continue Coreg Diastolic CHF, Chronic -Continue Coreg -HD with UF DM II with CKD -RISS Anemia in CKD -Retacrit X1 CKD MBD -Start Calcitriol Thank you kindly for the consultation.
[2021-08-14] MEDS: LACTOBACILLUS/ACIDOPHILUS TAB PO SCH ×2 (10:28→14:00)
[2021-08-14] MEDS ORDERED: MANNITOL 25% 12.5 GM/50 ML VIAL IV PRN (10:48)
[2021-08-14] MEDS ORDERED: NA CHLORIDE 0.9% 1,000 ML IV PRN (10:48)
[2021-08-14] MEDS ORDERED: ALBUMIN HUMAN 25% 50 ML IV SCH (11:00)
[2021-08-14] MEDS ORDERED: EPOETIN ALFA-EPBX 10,000 UNIT/ML VIAL SQ ONE (11:00)
[2021-08-14 13:21] VITALS: BP 140/63; TEMP 97.5
--- NOTE | 2021-08-14 13:37 | RAD REPORT ---
EXAM DESCRIPTION: CT - Abdomen Pelvis Wo Contrast - 08/14/2021 5:59 am CLINICAL HISTORY: 66 years Male ABD PAIN TECHNIQUE: Contiguous axial images obtained through the abdomen and pelvis without intravenous contr ast administration. Coronal and sagittal reformatted images provided. This CT exam was performed according to our departmental dose-optimization program, which includes on e or more of the following dose reduction techniques: automated exposure control, adjustment of the m A and/or kV according to patient size, and/or use of iterative reconstruction technique. COMPARISON: 07/25/2021 FINDINGS: Patient again seen to be status post prior median sternotomy and mitral valve repair with moderate cardiomegaly. Trace pericardial fluid. Again seen are small bilateral lateral pleural effusi ons with bibasilar pleural thickening and calcified right pleural plaques. Atelectasis and/or scarrin g in the lung bases is stable, right greater than left. Stable mildly enlarged right pericardiophreni c lymph node. Again seen is mild hepatosplenomegaly. No focal lesion in either organ on this noncontrast study. The re is prominence of the intrahepatic IVC and hepatic veins with trace peritoneal ascites. Stable gallstone. Cannot exclude gallbladder inflammation in the setting of trace free fluid. No bili fariba dilatation. Pancreatic atrophy without definite acute inflammation or focal lesion. Shotty peripancreatic and per iportal lymph nodes. Again seen is mild inflammation of the first and second portions of the duodenum. No evidence of perf oration. No other bowel inflammation. No bowel obstruction, pneumatosis, or free intraperitoneal air. Normal a ppendix. Bilateral renal atrophy, stable. No acute findings in the adrenal glands or urinary bladder. Extensive atherosclerosis without abdominal aortic aneurysm. Postsurgical changes in the bilateral gr oin. Mild inflammation of the subcutaneous fat and thickening of the skin anterior to the pubis and along the lateral aspect of the left proximal thigh, stable. No visualized soft tissue gas or abscess. Again seen is avascular necrosis of the right femoral head without articular surface collapse. Postsu rgical changes again noted in the left femoral head/neck. No acute fracture. IMPRESSION: Prior cardiac surgery with cardiomegaly. Findings in the liver suggestive of at least mi ld right heart failure. Hepatosplenomegaly with trace ascites. Bibasilar pleural thickening and pleural effusions with adjacent scarring/atelectasis. Mild inflammation of the first and second portions of the duodenum likely reflects peptic ulcer disea se. No evidence of perforation or obstruction. Gallstone without cholecystitis. Again seen is mild pubic and left proximal thigh cellulitis. Avascular necrosis of the right femoral head without collapse. Electronically signed by: Darleen Caballero MD 08/13/2021 11:20 PM REGIONAL MANAGER Due to temporary technical issues with the PACS/Fluency reporting system, reports are being signed by the in house radiologists without review as a courtesy to insure prompt reporting. The interpreting radiologist is fully responsible for the content of the report.
--- NOTE | 2021-08-14 15:06 | CON ---
Date of Consultation: 08/14/2021 Reason For Consultation: Chest pain. History Of Present Illness: A 66-year-old male with a history of HIV; end-stage renal disease, on he modialysis; diabetes; hypertension; dyslipidemia; history of valve replacement with mechanical valve, on Coumadin. The patient presented with chest pain. Had valve surgery about 5 years ago. Chest pa in is left-sided, radiates to the back along with some shortness of breath. Denies having any chest pain at the present time. Past Medical History: As outlined above in the HPI. Medications: Refer to reconciliation sheet for detailed list. Allergies: NO KNOWN DRUG ALLERGIES. Family History: No premature coronary artery disease or cancer. Social History: Does not smoke or drink. Does not use any drugs. Review of Systems: All systems reviewed and they were negative except for what mentioned in the HPI. Physical Examination: Vital Signs: Reviewed. Head and Neck: Pupils are equal, reactive to light. Intact eye movements. No JVD. No cervical lym phadenopathy. Neck is supple. Thyroid not enlarged. Lungs: Clear to auscultation bilaterally. No rhonchi, rales, or crackles. No accessory muscle use. Heart: Regular rate and rhythm. Abdomen: Soft and nontender. Bowel sounds positive. No organomegaly. No masses or hernias. No ri gidity or rebound. Extremities: No edema, clubbing, or cyanosis. Intact pulses. Skin: No rashes. Neurologic: Alert, awake, and oriented x3. No acute focal deficits appreciated. Investigations: Hemoglobin 7.3. Troponins have been negative. NT-proBNP is 116,441. Assessment And Recommendations: 1.Chest pain is atypical. The patient had a mechanical valve placement at the mitral position about 5 years ago, likely had normal coronary arteries. He denied having any history of coronary artery d isease or any heart attacks. Myocardial infarction was ruled out, utilizing serial troponins. Obtai n echocardiogram. If that is normal without wall motion abnormalities, the patient can be released a nd follow up as an outpatient with exercise stress test. 2.Mechanical mitral valve. Continue anticoagulation with Coumadin and to assure INR between 2.5 and 3. SR/MODL Voice ID: [id number] Report ID: [id number]
[2021-08-14] MEDS ORDERED: ATORVASTATIN 20 MG TAB PO SCH (21:00)
[2021-08-14] MEDS ORDERED: DOCUSATE NA 100 MG CAP PO SCH (21:00)
[2021-08-15] MEDS ORDERED: CALCITROL 0.25 MCG CAP PO SCH (09:00)
[2021-08-15] MEDS ORDERED: MULTIVITAMINS,THERAPEUT 1 TAB PO SCH (09:00)
--- NOTE | 2021-08-16 07:59 | P.DS ---
Discharge Date: 08/14/21 Primary Care Provider: HIV clinic, nephrology Dr. Washburn Disposition: ROUTINE DISCHARGE Discharge Condition: GOOD Reason for Admission: Chest pain, diarrhea Consultations: Nephrology Brief History of Present Illness: Patient is a 66-year-old -[place] male with history of HIV, ESRD on HD TTS, hepatitis C, cirrhosis of liver, diabetes mellitus type 2, hypertension, hyperlipidemia, mechanical heart valve on chronic anticoagulation therapy with Coumadin presents to the emergency department for chest pain and diarrhea. Patient reports last 2 days he had ongoing chest pain unable to describe quality but reports across both sides of her chest rating to the back associated with some shortness of breath. Patient also reports lower abdominal pain and diarrhea for the last 2 days. Patient reports up to 15 episodes of diarrhea today. Patient also scheduled for laser eye surgery on this coming Saturday supposed to have dialysis tomorrow in preparation for this. Patient was evaluated in the emergency department labs were significant for hemoglobin 1.9 hematocrit 37 platelet count 105 creatinine 6.55 GFR 10 BUN 30 1T bili 0.3 BNP 116,541 troponin 0.[address] abdomen pelvis without contrast demonstrates mild inflammation of the first and second portions of the duodenum likely reflecting peptic ulcer disease no evidence of perforation or obstruction no other acute abdominal findings noted. Stool culture and other studies have been ordered. Patient given Protonix in the emergency department, ED provider wishes to admit under observation for ACS rule out as well as diarrhea. Hospital Course: Patient was dialyzed and fluid status is stable. Patient is clinically doing better. At this time, patient is stable for discharge home. Vital Signs/Physical Exam: Temp Pulse Resp BP Pulse Ox 97.5 F 79 17 140/63 95 08/14/21 12:00 08/14/21 12:00 08/14/21 12:00 08/14/21 12:00 08/14/21 12:00 General: Alert, In no apparent distress, Oriented x3 Laboratory Data at Discharge: WBC 4.20 K/uL (4.3-10.9) L D 08/14/21 05:07 Hgb 10.3 g/dL (13.6-17.9) L 08/14/21 05:07 Hct 31.5 % (39.6-49.0) L 08/14/21 05:07 Plt Count 87 K/uL (152-406) L 08/14/21 05:07 PT 13.3 SECONDS (9.5-12.5) H 08/13/21 22:10 INR 1.15 08/13/21 22:10 Sodium 139 mmol/L (136-145) 08/14/21 05:07 Potassium 3.8 mmol/L (3.5-5.1) 08/14/21 05:07 BUN 35 mg/dL (7-18) H 08/14/21 05:07 Creatinine 6.98 mg/dL (0.55-1.3) H* 08/14/21 05:07 Glucose 72 mg/dL (74-106) L 08/14/21 05:07 Magnesium 2.0 mg/dL (1.8-2.4) 08/14/21 05:07 Total Bilirubin 0.8 mg/dL (0.2-1.0) 08/14/21 05:07 AST 19 U/L (15-37) 08/14/21 05:07 ALT 16 U/L (12-78) 08/14/21 05:07 Alkaline Phosphatase 48 U/L (45-117) 08/14/21 05:07 Troponin I 0.02 ng/mL (0.0-0.045) 08/14/21 11:00 Lipase 170 U/L (73-393) 08/13/21 22:10 Home Medications: Lamivudine [Epivir] 2.5 ml PO DAILY 02/18/18 Lopinavir/Ritonavir [Kaletra 200-50 MG Tablet*] 2 tab PO BID 05/17/18 Raltegravir Potassium [Isentress*] 400 mg PO BID 05/17/18 Folic Acid/Vit B Complex and C [Daija-Kodak Tablet] 1 tab PO DAILY 05/18/18 Atropine 1% Opth Alicia [Atropine 1% Opth Alicia*] 1 drop OP DAILY 06/21/21 Cholecalciferol (Vitamin D3) [Vitamin D 5,000 IU Cap*] 5,000 unit PO SEECOM 06/21/21 Pantoprazole [Protonix Tab*] 40 mg PO DAILY 06/21/21 Prednisolone Acetate/Pf [Prednisolone Acet 1% Eye Drop] 1 drop OP QID 06/21/21 Tramadol HCl [Ultram] 50 mg PO Q8H PRN 06/21/21 Warfarin Sodium 1.5 tab PO SEECOM 06/21/21 Warfarin Sodium 10 mg PO SEECOM 06/21/21 carvediloL [Coreg*] 12.5 mg PO BID 06/21/21 Amox/Clavulanate [Augmentin 500-125 mg Tab*] 500 mg PO BEDTIME #5 tab 06/22/21 Benzonatate [Tessalon Perle*] 100 mg PO TID PRN #30 cap 06/22/21 Heparin [Heparin 1,000 units/mL *] 6,000 unit IV EVERY HD PRN vial 06/22/21 Mannitol 25% [Mannitol*] 12.5 gm IV EVERY HD PRN vial 06/22/21 Atorvastatin Calcium [Lipitor*] 20 mg PO BEDTIME #30 tab 08/14/21 New Medications: Atorvastatin Calcium [Lipitor*] 20 mg PO BEDTIME #30 tab Physician Discharge Instructions: OK TO DC IV AND DC HOME FOLLOW-UP WITH PRIMARY CARE PROVIDER IN 1-2 WEEKS FOLLOW-UP WITH CARDIOLOGY and Nephrology IN 1-2 WEEKS RETURN TO THE ER IF symptoms worsen CALL or TEXT DR. MILLS AT [phone] IF ANY QUESTIONS REGARDING HOSPITAL STAY. PLEASE CALL THE FLOOR AT [phone] IF ANY MEDICATION OR NURSING QUESTIONS. Diet: Renal Activity: Fall precautions Followup: Lorne Washburn DO [ACTIVE - CAN ADMIT] - (Follow up in hemodialysis) Cordell Malave MD [ACTIVE - CAN ADMIT] - 1-2 Weeks (Will need outpatient stress test and echo) Time spent managing pt's care (in minutes): 35
== END 2021-08-14 20:05 | disposition home or self-care (01) ==
LOC: ER 19:29 → ERHOLD 23:42 → 2ND 08-14 00:33
PROVIDERS: ADMIT Hospitalist; ATTEND Hospitalist
PROC: 5A1D70Z Performance of Urinary Filtration, Intermittent, Less than 6 Hours Per Day (ICD-10-PCS; principal; 2021-08-14)
DX: R07.9 Chest pain, unspecified (principal); R10.9 Unspecified abdominal pain; R19.7 Diarrhea, unspecified; I13.2 Hypertensive heart and chronic kidney disease with heart failure and with stage 5 chronic kidney disease, or end stage renal disease; I50.32 Chronic diastolic (congestive) heart failure; E11.22 Type 2 diabetes mellitus with diabetic chronic kidney disease; N18.6 End stage renal disease; Z21 Asymptomatic human immunodeficiency virus [HIV] infection status; E78.5 Hyperlipidemia, unspecified; K74.69 Other cirrhosis of liver; B19.20 Unspecified viral hepatitis C without hepatic coma; Z95.2 Presence of prosthetic heart valve; Z79.01 Long term (current) use of anticoagulants; Z20.822 Contact with and (suspected) exposure to COVID-19
CPT/HCPCS: 96365; 93005; 85025 ×2; 80048; 36415; 83735 ×2; 85610; 82947 ×2; 80076; 84443; 84484 ×3; 84439; 83690; 80053; 83880; 74176; 71045; 90935; 96375; 99285; U0003; C9113 ×2; J1644; Q5106; P9047; J7050; G0378 ×2

== ENCOUNTER 2021-08-20 02:41 | Emergency (ER) | payer OTHER ==
--- OUTSIDE RECORDS SUMMARY | 2021-08-20 03:08 | XMS REPORT | Continuity of Care Document ---
:1955 Author Organization [facility] t Address [address] [place] [address] Care Team Providers Name Role Phone RADHA ROSALES Primary Care Physician Unavailable MELVIN SHER Attending Clinician Unavailable DELANEY OCAMPO Attending Clinician Unavailable BOBBY Attending Clinician Unavailable SOBEIDA BARRY Attending Clinician Unavailable Xavier Alexander Attending Clinician [phone] Javed Attending Clinician Unavailable Reno MAYA Attending [...] ANTONIO Attending Clinician Unavailable Joy Attending Clinician [phone] Varun Attending Clinician [phone] Yoav Attending Clinician Unavailable Xavier HOLLOWAY Attending [...] Admitting Clinician Unavail able Xavier Alexander Unavailable [phone] Varun Unavailable [phone] Payers Payer Name Policy Type Policy Number Effective Date Expiration Date S prabhjot MEDICARE A B [id number] 2010 00:00:00 MEDICARE PART A & [id number] 2010 B 00:00:00 MEDICARE PART A [id number] 2010 \\T\\ B 00:00:00 CDC REVIEW [id number] 2020 00:00:00 Problems Condition Condition Condition Status [...] 2017-12-02 Joel Alexander on 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 Ramu [facility] i 00:00: ty 00 Health Encounter Condition Active 2017-12-02 Joel Alexander for 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 [facility] i screening 00:00: ty for eye 00 Health and ear disorders Hypertensi Condition Active 2017-12-02 Joel Alexander ve 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 [facility] i retinopath 00:00: ty y, 00 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, 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 00:00: ty 00 Health HIV Condition Active 2017-12-02 Angela Alexander gacjessee infection 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 Ramu Com mary 00:00: ty 00 Health Presbyopia Condition Active 2017-12-02 Joel Bond - OU 12-02 15:13:40 [facility] Hyperopia Condition Active 2017-12-02 Joel Bond - OU 12-02 15:13:40 [facility] Health Allergies, Adverse Reactions, Alerts Allergy Allergy Status Severity Reaction(s) Onset Inactive Treating Comm ents Source Name Type Date Date Clinician CODEINE Allergy Active Med Other [facility] 12-02 00:00: 00 NO KNOWN Drug Active [facility] ALLERGIE Class ity of [facility] Social History Social Habit Start Date Stop [...] rate 2021-08-02 10:11:01 90 /min [facility] Health Procedures Procedure Date / Time Performing Clinician Source Performed New Patient Comprehensive 2021-08-02 11:06:20 Ramu [facility] - [address] Health 2O0I29C 2020-06-29 00:00:00 ENCPL 4U9U31U 2020-06-29 00:00:00 ENCPL 8Z6E03K 2020-06-29 00:00:00 ENCPL 8C5V61K 2020-06-29 00:00:00 ENCPL 7T1W82O 2020-06-29 00:00:00 ENCPL 0K1D54Y 2020-06-29 00:00:00 ENCPL 6J0T17I 2020-06-29 00:00:00 ENCPL 9H5Q80Z 2020-06-29 00:00:00 ENCPL 5B8A66D 2020-06-29 00:00:00 ENCPL 6F4N49I 2020-06-29 00:00:00 ENCPL 5M4Q76Q 2020-06-29 00:00:00 ENCPL 1U4X72H 2020-06-29 00:00:00 ENCPL 5B9L82P 2020-06-29 00:00:00 ENCPL 9Y7N28O 2020-06-29 00:00:00 ENCPL 5M6Z99B 2020-03-05 00:00:00 ENCPL 3R2H47T 2020-03-05 00:00:00 ENCPL 2P0V33Z 2020-03-05 00:00:00 ENCPL 2S1S71I 2020-03-05 00:00:00 ENCPL 5R3K13K 2020-03-05 00:00:00 ENCPL 0A4X93J 2020-03-05 00:00:00 ENCPL 4A9I71P 2020-03-05 00:00:00 ENCPL 2H4B60R 2020-03-05 00:00:00 ENCPL 2J9P86B 2020-03-05 00:00:00 ENCPL 8E8R04L 2020-03-05 00:00:00 ENCPL 2L3K23F 2020-03-05 00:00:00 ENCPL 6W1E48R 2020-03-05 00:00:00 ENCPL 8P4B93J 2020-03-05 00:00:00 ENCPL 2J9H83M 2020-03-05 00:00:00 ENCPL 9T9D20Z 2020-03-05 00:00:00 ENCPL 9S6B49B 2020-03-05 00:00:00 ENCPL 2N1Q83Q 2020-03-05 00:00:00 ENCPL 0R4Y53R 2020-03-05 00:00:00 ENCPL 1U0P91L 2020-03-05 00:00:00 ENCPL 1X9O62H 2020-03-05 00:00:00 ENCPL 9W4H21Z 2020-03-05 00:00:00 ENCPL 1P4X56C 2019-01-08 00:00:00 ENCPL 1D9G83E 2019-01-08 00:00:00 ENCPL 2I8U24C 2019-01-08 00:00:00 ENCPL 7E5N77H 2019-01-08 00:00:00 ENCPL Dispensing Visit (UNLIVSTED 2018-03-25 10:14:05 Cason, Yuki [facility] OPHTHALMOLOGICAL Health SERVICE/PROCEDURE) Spherocyl, bif, plano to 2018-03-11 09:52:57 Cason, Yuki [facility] +/- 4.00d sphere, 0.12 to Health 2.00d cyl, per lens Frames, purchases 2018-03-11 09:52:36 Cason, [facility]uki [facility] Spherocyl, bif, plano to 2017-12-03 07:50:03 CasonYuki [facility] +/- 4.00d sphere, 0.12 to Health 2.00d cyl, per lens Frames, purchases 2017-12-03 07:49:43 CasonYuki [facility] Patient Comprehensive 2017-12-02 15:27:18 Ramu [facility] - [address] Health New Patient Intermediate 2017-12-02 14:28:18 Mo Bond [facility] - [address] Health Encounters Start End Encounter Admission Attending Care Care Encounter Source Date/Time Date/Time Type Type Clinicians Facility Department ID 2020-07-06 Outpatient MELONIE SHANNON ENCCLR [id number] ENCCLR 21:26:21 N MELVIN 2020-02-26 Inpatient ER DAMARIS, [facility] [id number] [facility] 23:10:00 DELANEY 2021-10-23 2021-10-23 [id number] L[facility]pez [facility]:00[facility]00 [facility] 2021-10-09 [id number] López 00:00:00 00:00:00 [facility] Reciclata 2021-09-05 2021-09-05 Outpatient [facility] [id number] [place] 00:00:00 00:00:00 Health 2021-08-21 2021-08-21 Outpatient JOSE MIGUEL BARRY [facility] [id number] Dawn 00:00:00 00:00:00 Health 2021-08-07 2021-08-07 Outpatient JOSE MIGUEL BARRY [facility] [id number] [place] 00:00:00 00:00:00 Health 2021-08-02 2021-08-02 Office Ramu Alexander [facility] [id number] [facility] 00:00:00 00:00:00 Visit Rosalba Burt [id number] [facility] 2021-07-31 2021-07-31 Outpatient [facility] [id number] Dawn 09:23:59 09:30:08 Health 2021-07-31 2021-07-31 Outpatient JOSE MIGUEL BARRY [facility] [id number] Barlow 07:58:35 08:41:53 Health 2021-07-31 2021-07-31 Outpatient FRANCESCO [facility] [id number] [place] 00:00:00 00:00:00 [facility] 2021-07-21 2021-07-21 Outpatient EL MARQUEZ, SLE SLE [id number] SLE 07:11:08 23:59:00 [place] 2021-07-21 2021-07-21 Outpatient [facility] [id number] [facility] 00:00:00 23:59:00 Bj Medicin e 2021-07-19 2021-07-19 Outpatient EL [facility]H SLE [id number] SLE 07:19:43 07:19:43 2021-07-17 2021-07-17 Outpatient [facility] [id number] [place] 12:03:08 12:07:37 [facility] 2021-07-17 2021-07-17 Outpatient BOBBY [facility] [id number] López 09:04:13 11:23:22 [facility] 2021-07-17 2021-07-17 Outpatient JOSE MIGUEL BARRY [facility] [id number] Dawn 08:46:08 09:12:52 Health 2021-07-17 2021-07-17 Outpatient SELINA-GABBY [facility] [id number] Dawn 00:00:00 00:00:00 JOSE GUILLERMO 2021-07-17 2021-07-17 Outpatient HARRIETT [facility] [id number] Dawn 00:00:00 00:00:00 [facility] 2021-07-10 2021-07-10 Outpatient JOSE MIGUEL BARRY [facility] [id number] Dawn 00:00:00 00:00:00 [facility] 2021-07-03 2021-07-03 Outpatient JOSE MIGUEL BARRY [facility] [id number] [place] 07:40:01 14:04:21 [facility] 2021-07-03 2021-07-03 Outpatient JONATHANDINORAEstee [facility] [id number] Bar[place] 08:05:52 08:18:57 [facility] 2021-07-03 2021-07-[address] [place] [address] [id number] Bar[place] 08:05:52 08:18:57 [facility] 2021-07-03 2021-07-03 Outpatient JUDD, [facility] [id number] [place] 00:00:00 00:00:00 [facility] 2021-07-03 2021-07-03 Outpatient HARRIETT [facility] [id number] [place] 00:00:00 00:00:00 [facility] 2021-06-26 2021-06-26 Outpatient JOSE MIGUEL BARRY [facility] [id number] [place] 07:54:30 08:35:16 [facility] 2021-06-12 2021-06-12 Outpatient JOSE MIGUEL BARRY [facility] [id number] Dawn 07:56:03 08:33:36 [facility] 2021-05-29 2021-05-29 Outpatient JOSE MIGUEL BARRY [facility] [id number] Dawn 08:28:20 09:29:41 [facility] 2021-05-15 2021-05-15 Outpatient JOSE MIGUEL BARRY [facility] [id number] [place] 08:03:38 08:31:36 [facility] 2021-05-01 2021-05-01 Outpatient [facility] [id number] Dawn 08:40:51 08:46:27 [facility] 2021-05-01 2021-05-01 Outpatient JOSE MIGUEL BARRY [facility] [id number] Dawn 08:04:58 08:32:39 [facility] 2021-05-01 2021-05-01 Outpatient DANIELLE [facility] [id number] Dawn 00:00:00 00:00:00 [facility] 2021-04-24 2021-04-24 Outpatient JOSE MIGUEL BARRY [facility] [id number] [place] 08:03:45 08:22:54 [facility] 2021-04-17 2021-04-17 Outpatient JOSE MIGUEL BARRY [facility] [id number] Dawn 08:38:35 08:58:58 [facility] 2021-04-10 2021-04-10 Outpatient FRANCESCO [facility] [id number] Dawn 00:00:00 00:00:00 [facility] 2021-03-27 2021-03-27 Outpatient DANIELLE [facility] [id number] Dawn 12:10:09 12:36:55 [facility] 2021-03-27 2021-03-27 Outpatient JOSE MIGUEL BARRY [facility] [id number] [place] 09:45:17 10:13:09 [facility] 2021-03-07 2021-03-07 Outpatient JOSE MIGUEL BARRY [facility] [id number] [place] 12:04:05 12:23:09 [facility] 2021-02-20 2021-02-20 Outpatient [facility] [id number] [place] 08:34:14 08:39:27 [facility] 2021-02-20 2021-02-20 Outpatient JOSE MIGUEL BARRY [facility] [id number] [place] 08:09:20 08:34:30 [facility] 2021-02-20 2021-02-20 Outpatient HARRIETT [facility] [id number] [place] 00:00:00 00:00:00 [facility] 2021-02-19 2021-02-19 Emergency [facility] [id number] Willis 00:00:00 00:00:00 KRISTI 590 Method i 2021-02-06 2021-02-06 Outpatient [facility] [id number] Barlow 09:14:10 09:17:27 [facility] 2021-02-06 2021-02-06 Outpatient JOSE MIGUEL BARRY [facility] [id number] [place] 08:49:54 09:14:22 [facility] 2021-02-06 2021-02-06 Outpatient DANIELLE [facility] [id number] Dawn 00:00:00 00:00:00 [facility] 2021-02-06 2021-02-06 Outpatient JUDD [facility] [id number] Dawn 00:00:00 00:00:00 [facility] 2021-01-23 2021-01-23 Outpatient DANIELLE [facility] [id number] [place] 11:31:24 12:44:32 [facility] 2021-01-23 2021-01-23 Outpatient JOSE MIGUEL BARRY [facility] [id number] [place] 10:14:28 10:36:06 [facility] 2021-01-10 2021-01-10 Outpatient JOSE MIGUEL BARRY [facility] [id number] [place] 07:22:07 11:41:14 [facility] 2021-01-09 2021-01-09 Outpatient [facility] [id number] [place] 09:13:08 09:20:36 [facility] 2021-01-09 2021-01-09 Outpatient LORENZANA, [facility] [id number] [place] 08:19:59 09:12:38 [facility] 2021-01-09 2021-01-09 Outpatient JESSICA, [facility] [id number] [place] 00:00:00 00:00:00 [facility] 2021-01-09 2021-01-09 Outpatient HARRIETT, [facility] [id number] [place] 00:00:00 00:00:00 [facility] 2021-01-04 2021-01-04 Outpatient JOSE MIGUEL BARRY [facility] [id number] [place] 11:36:44 12:43:02 [facility] 2021-01-02 2021-01-02 Outpatient JOSE MIGUEL BARRY [facility] [id number] [place] 07:27:21 12:04:53 [facility] 2021-01-02 2021-01-02 Outpatient JOSE MIGUEL BARRY [facility] [id number] [place] 00:00:00 00:00:00 [facility] 2020-12-30 2020-12-30 Outpatient [facility] [id number] [place] 00:00:00 00:00:00 [facility] 2020-12-19 2020-12-19 Outpatient JOSE MIGUEL BARRY [facility] [id number] [place] 09:18:35 09:59:02 [facility] 2020-12-16 2020-12-16 Outpatient JESSICA, [facility] [id number] [place] 10:25:40 10:35:40 [facility] 2020-12-16 2020-12-16 Outpatient JESSICA, [facility] [id number] [place] 00:00:00 00:00:00 [facility] 2020-11-28 2020-11-28 Emergency X VENITA, [facility] [id number] Univers 22:52:00 22:52:00 JAMIL lopez [facility] 2020-11-24 2020-11-24 Outpatient RUPERTO, [facility] [id number] [place] 13:25:44 13:59:48 [facility] 2020-11-10 2020-11-10 Outpatient RUPERTO, [facility] [id number] [place] 00:00:00 00:00:00 [facility] 2020-11-09 2020-11-09 Outpatient JONNY MON [facility] [id number] [place] 07:51:58 08:14:33 Health 2020-10-27 2020-10-27 Outpatient RUPERTO, [facility] [id number] [place]low 12:02:34 12:25:02 [facility] 2020-10-20 2020-10-20 Outpatient RUPERTO, [facility] [id number] [place] 00:00:00 00:00:00 [facility] 2020-10-20 2020-10-20 Outpatient RUPERTO, [facility] [id number] [place] 00:00:00 00:00:00 [facility] 2020-10-06 2020-10-06 Outpatient RUPERTO, [facility] [id number] [place] 11:11:47 11:11:47 [facility] 2020-07-08 2020-07-08 Outpatient CHRISTOS, [facility]scar [id number] [facility] 08:37:00 08:37:00 MELVIN [id number] [facility] [place] 2020-05-09 2020-06-28 Inpatient VO, [facility] [id number] [place] 00:00:00 00:00:[address] 2020-04-21 2020-04-21 Emergency ER SLE Emergency [id number] SLE 20:49:00 20:49:00 2019-11-09 2019-11-09 Outpatient [facility] [id number] [facility] 08:51:00 08:51:00 FIDELINA PaulOLA 2019-09-12 2019-09-12 Emergency MUÑOZ, [facility] [id number] Willis 00:00:00 00:00:00 [facility] 2017-12-02 2017-12-02 Office Ramu Alexander [facility] [id number] Legacy 00:00:00 00:00:00 Visit Julieta Hamilton [id number] Co [facility] 2017-12-02 2017-12-02 Office Mo Bond [facility] Encoun ter/ Legacy 00:00:00 00:00:00 Visit CasonYuki estrada [id number] [facility] [id number] [facility] 2017-11-18 2017-11-20 Inpatient C AMIE, [facility] [id number] St. 13:43:00 13:54:00 [facility] 2017-11-07 2017-11-07 Emergency E [facility] [id number] St. 20:22:00 20:22:00 [facility] 2017-10-06 2017-10-06 Emergency E ELIANA, [facility] [id number] 14:25:00 14:25:00 [facility] Results Test Description Test Time Test Comments Results Result Comments Source PROTHROMBIN TIME/INR 2021-07-21 07:51:16 Test Item Value Reference Range Interpretation Comme nts PROTIME (BEAKER) (test code 19.0 seconds 11.9-14.2 H = 759) INR (BEAKER) (test code = 1.62 See_Comment [ Automated message] The [employer] system which ge nerated this result transmit jayla reference range: <=5.90. The reference range was not u sed to interpret this result as normal/abnormal . RECOMMENDED COUMADIN/WARFARIN INR THERAPY RANGESSTANDARD DOSE: 2.0 - 3.0 Includes: PROPHYLAXIS forvenous thrombosis, systemic embolization; TREATMENT for venous thrombosis and/or pulmonary embolus.HIGH RISK: Target INR is 2.5-3.5 for patients with mechanical heart valves.SARS-COV2/RT-PCR ([facility]) 2021-07-19 20:41:44 Test Item Value Reference Range Interpretation Comments SARS-COV2/RT-PCR (test code = Negative Negative [id number]) Negative result for this test determines that [...] the Chairez SARS-CoV-2 assay.Fact Sheet for Healthcare Providers:https://www.Rezee.chairez/emerita/RT SARS-CoV-2 HCP Fact Sheet 51- 179956.pdfFact Sheet for Healthcare Patients:https://www.Rezee.chairez/emerita/RT SARS-CoV-2 Patient Fact Sheet EN 51-764966A7.pdfHIV1 RNA # Plas RADHA DL=20 2021-07-05 16:15:28 Test Item Value Reference Range Interpretation Comments HIV1 RNA [facility] Ql RADHA+probe NOT DETECTED Not detected (test code = 75098-7) This test utilizes FDA cleared ERICH AmpliPrep/ERICH TaqMan HIV-1 test 2.0 from [employer] which allows quantitation of viral loads between [...] patients with HIV-1 infection. CD4+CD8+ Cells NFr [id number] 13:12:03 Test Item Value Reference Range Interpretation Comments T-cell CD4 subset 480 cells/uL See_Comment [Automate d message] pnl Bld (test code The lalito handy which = 04326-0) generated this result transmitted ref erence range: 431-1,62 3. The reference range was not used to interpr et this result as normal/abnormal . CD3+CD4+ 1.54 ratio 0.86-2.05 Cells/CD3+CD8+ Cells Bld (test code = 49542-1) CD4+CD8+ Cells NFr 40.0 % 25.0-56.0 Bld (test code = 78024-6) RPR [id number] 14:32:36 Test Item Value Reference Range Interpretation Comments T pallidum Ab Ser Ql Aggl (test NEGATIVE Negative, Equivocal code = 27710-1) Reagin+T pallidum IgG+IgM NEGATIVE Negative SerPl-Imp (test code = 75950-7) T-helper cells (CD4) [id number] 10:30:27 Test Item Value Reference Range Interpretation Comments T-helper cells (CD4) count (test code 512 uL = 72239-1) [facility], serum, by PCR, [id number] 10:30:25 Test Item Value Reference Range Interpretation Comments HIV-1RNA, serum, by PCR, quantitative 20 /mL (test code = 56279) [facility] [id number] 11:26:00 Test Item Value Reference Range Interpretation Comments AG HEPATITIS B SURFACE (test NEGATIVE SCREEN NEGATIVE code = HBSAG) AB HEPATITIS A [id number] 03:08:00 Test Item Value Reference Range Interpretation Comments AB HEPATITIS A IGM (test code = HAVMAB) AB HEPATITIS B [id number] 03:08:00 Test Item Value Reference Range Interpretation Comments AB HEPATITIS B SURFACE 96.5 mIU/mL Immunity>9.9 Sta tus of Immunity (test code = HBSAB) Anti-HBs Level --- I ncons istent with Imm unity 0.0 - 9.9Consis tent with Immunity >9.9 AB HEPATITIS A [id number] 03:08:00 Test Item Value Reference Range Interpretation Comments AB HEPATITIS A IGM Negative Negative Performed At: (test code = HAVMAB) [facility] [id number] [place], [place] [id number] lauren Chapman MD Ph:[phone] AB HEPATITIS B [id number] 03:08:00 Test Item Value Reference Range Interpretation Comments AB HEPATITIS B SURFACE 96.5 mIU/mL Immunity>9.9 Sta tus of Immunity (test code = HBSAB) Anti-HBs Level --- I ncons istent with Imm unity 0.0 - 9.9Consis tent with Immunity >9.9 COVID 19 Asymptomatic IH [id number] 09:05:00 Test Item Value Reference Range Interpretation [...] in Respiratory specimen by RADHA with probe [id number] 10:30:29 Test Item Value Reference Range Interpretation Comments SARS-CoV-2 (COVID-19) RNA Not detected Not-Detected [Presence] in Respiratory specimen by RADHA with probe detection (test code = 07824-4) SARS-CoV-2 (COVID-19) RNA [Presence] in Respiratory specimen by RADHA with probe [id number] 18:12:42 Test Item Value Reference Range Interpretation Comments SARS-CoV-2 (COVID-19) RNA Not detected Not-Detected [Presence] in Respiratory specimen by RADHA with probe detection (test code = 98001-9) SARS-CoV-2 (COVID-19) RNA [Presence] in Respiratory specimen by RADHA with probe [id number] 12:55:22 Test Item Value Reference Range Interpretation Comments SARS-CoV-2 (COVID-19) RNA Not detected Not-Detected [Presence] in Respiratory specimen by RADHA with probe detection (test code = 09084-7) SARS-CoV-2 (COVID-19) RNA [Presence] in Respiratory specimen by RADHA with probe [id number] 23:46:30 Test Item Value Reference Range Interpretation Comments SARS-CoV-2 (COVID-19) RNA Not detected Not-Detected [Presence] in Respiratory specimen by RADHA with probe detection (test code = 21240-7) TROPONIN [id number] 23:28:00 Test Item Value Reference Range Interpretation [...] failure, acidosis, acute neurological disease, and persistent tachyarrhythmia.Wagon Person ID - PIAYA LBASIC METABOLIC [id number] 23:26:00 Test Item Value Reference Range Interpretation [...] S NOT APPLICABLE FOR DIALYSIS PATIEN TS. Wagon Person ID - AKSHAT LB-TYPE NATRIURETIC FACTOR (BNP)2020-04-21 23:25:00 Test Item Value Reference Range Interpretation Comments B-TYPE NATRIURETIC PEPTIDE 1507 pg/mL 0-100 H (BEAKER) (test code = 700) Wagon Person ID - PIJESSE LPT/[id number] 23:09:00 Test Item Value Reference Range Interpretation [...] mechanical heart valves.CBC W/PLT COUNT & AUTO [id number] 22:49:00 Test Item Value Reference Range Interpretation [...] (test code = 2801) RAD, CHEST, 2 [id number] 22:26:00Reason for exam:->SHORTNESS OF BREATH FINAL REPORT [...] Edenilson Gutierrezort Verified Date/Time: 04/21/2020 22:26:38 POCT-GLUCOSE [id number] 15:36:00 Test Item Value Reference Range Interpretation Comments POC-GLUCOSE METER 133 mg/dL 70-110 H : TESTED A T [facility] 6720 (BEAKER) (test code = [facility], 1538) [id number]: Wagon Person/Techni kush ID = [id number] for Wi lliams, Areiona POCT-GLUCOSE [id number] 12:38:00 Test Item Value Reference Range Interpretation Comments POC-GLUCOSE METER 100 mg/dL 70-110 : TESTED A T [facility] 6720 (BEAKER) (test code = [facility], 1538) [id number]: Wagon Person/Techni kush ID = [id number] for Wi lliams, Areiona [id number] 09:28:00 Test Item Value Reference Range Interpretation Comments PARTIAL THROMBOPLASTIN TIME 67.8 seconds 22.5-36.0 H (BEAKER) (test code = 760) [id number] 07:14:00 Test Item Value Reference Range Interpretation Comments PARTIAL THROMBOPLASTIN TIME 146.9 seconds 22.5-36.0 H (BEAKER) (test code = 760) CBC W/PLT COUNT & AUTO [id number] 05:40:00 Test Item Value Reference Range Interpretation [...] (BEAKER) (test code = 2801) BASIC METABOLIC [id number] 05:24:00 Test Item Value Reference Range Interpretation [...] S NOT APPLICABLE FOR DIALYSIS PATIEN TS. Wagon Person ID - LORENZO WPROTHROMBIN TIME/[id number] 04:52:00 Test Item Value Reference Range Interpretation [...] H : TESTED A T [facility] 6720 ([employer]) (test code = [place], 1538) 09457: Wagon Person/Techni kush ID = [id number] for KATIA RAO [id number] 21:05:00 Test Item Value Reference Range Interpretation Comments PARTIAL THROMBOPLASTIN TIME 66.8 seconds 22.5-36.0 H (BEAKER) (test code = 760) [id number] 19:49:00 Test Item Value Reference Range Interpretation Comments PARTIAL THROMBOPLASTIN TIME > seconds 22.5-36.0 HH (BEAKER) (test code = 760) POCT-GLUCOSE [id number] 17:09:00 Test Item Value Reference Range Interpretation Comments POC-GLUCOSE METER 145 mg/dL 70-110 H : TESTED A T [facility] 6720 (BEAKER) (test code = [facility], 1538) 32556: Wagon Person/Techni kush ID = [id number] for Christina Chisholm POCT-GLUCOSE [id number] 12:10:00 Test Item Value Reference Range Interpretation Comments POC-GLUCOSE METER 113 mg/dL 70-110 H : TESTED A T [facility] 6720 ([facility]) (test code = [facility], 1538) 19328: Wagon Person/Techni kush ID = [id number] for Christina Chisholm [id number] 11:50:00 Test Item Value Reference Range Interpretation Comments PARTIAL THROMBOPLASTIN TIME 96.6 seconds 22.5-36.0 H (BEAKER) (test code = 760) POCT-GLUCOSE [id number] 08:28:00 Test Item Value Reference Range Interpretation Comments POC-GLUCOSE METER 150 mg/dL 70-110 H : TESTED A T [facility] 6720 (BEAKER) (test code = [facility], 1538) 04110: Wagon Person/Techni kush ID = [id number] for Christina Chisholm BASIC METABOLIC [id number] 06:15:00 Test Item Value Reference Range Interpretation [...] S NOT APPLICABLE FOR DIALYSIS PATIEN TS. Wagon Person ID - BSCBC W/PLT COUNT & AUTO [id number] 06:12:00 Test Item Value Reference Range Interpretation [...] 0-1 PERCENT (BEAKER) (test code = 2801) [id number] 05:43:00 Test Item Value Reference Range Interpretation Comments PARTIAL THROMBOPLASTIN TIME 61.8 seconds 22.5-36.0 H (BEAKER) (test code = 760) PROTHROMBIN TIME/[id number] 05:42:00 Test Item Value Reference Range Interpretation [...] 6720 (BEAKER) (test code = [place], 1538) 22154: Wagon Person/Techni kush ID = [id number] for AN BENITA ERNANDEZ [id number] 22:49:00 Test Item Value Reference Range Interpretation Comments PARTIAL THROMBOPLASTIN TIME 86.0 seconds 22.5-36.0 H (BEAKER) (test code = 760) [id number] 15:29:00 Test Item Value Reference Range Interpretation [...] INR is2.5-3.5 for patients wiht mechanical heart valves.[id number] 15:29:00 Test Item Value Reference Range Interpretation Comments PARTIAL THROMBOPLASTIN TIME 90.0 seconds 22.5-36.0 H (BEAKER) (test code = 760) BASIC METABOLIC [id number] 12:20:00 Test Item Value Reference Range Interpretation [...] S NOT APPLICABLE FOR DIALYSIS PATIEN TS. Wagon Person ID - [place] FCBC W/PLT COUNT & AUTO [id number] 07:29:00 Test Item Value Reference Range Interpretation [...] 0-1 PERCENT (BEAKER) (test code = 2801) [id number] 07:20:00 Test Item Value Reference Range Interpretation Comments PARTIAL THROMBOPLASTIN TIME 61.2 seconds 22.5-36.0 H (BEAKER) (test code = 760) While on warfarin.BASIC METABOLIC [id number] 07:06:00 Test Item Value Reference Range Interpretation [...] S NOT APPLICABLE FOR DIALYSIS PATIEN TS. Wagon Person ID - ANTONIA FPROTHROMBIN TIME/[id number] 06:37:00 Test Item Value Reference Range Interpretation [...] for patients wiht mechanical heart valves.While on warfarin.[id number] 23:03:00 Test Item Value Reference Range Interpretation Comments PARTIAL THROMBOPLASTIN TIME 54.4 seconds 22.5-36.0 H (BEAKER) (test code = 760) POCT-GLUCOSE [id number] 22:30:00 Test Item Value Reference Range Interpretation Comments POC-GLUCOSE METER 96 mg/dL 70-110 : TESTED A T [facility] 6720 (BEAKER) (test code = [place], 1538) 63089: Wagon Person/Techni kush ID = [id number] for BENITA MASSEY POCT-GLUCOSE [id number] 15:59:00 Test Item Value Reference Range Interpretation Comments POC-GLUCOSE METER 133 mg/dL 70-110 H : TESTED A T [facility] 6720 (BEAKER) (test code = [place] Paul [facility], 1538) 69750: Wagon Person/Techni kush ID = [id number] for Raquel Raoa [id number] 15:38:00 Test Item Value Reference Range Interpretation Comments PARTIAL THROMBOPLASTIN TIME 88.8 seconds 22.5-36.0 H (BEAKER) (test code = 760) POCT-GLUCOSE [id number] 12:08:00 Test Item Value Reference Range Interpretation Comments POC-GLUCOSE METER 130 mg/dL 70-110 H : TESTED A T [facility] 6720 ([employer]) (test code = [place] Paul [facility], 1538) 15915: Wagon Person/Techni kush ID = [id number] for Raquel Raoa PROTHROMBIN TIME/[id number] 11:48:00 Test Item Value Reference Range Interpretation [...] INR is2.5-3.5 for patients wiht mechanical heart valves.[id number] 09:34:00 Test Item Value Reference Range Interpretation Comments PARTIAL THROMBOPLASTIN TIME 74.6 seconds 22.5-36.0 H (BEAKER) (test code = 760) CBC W/PLT COUNT & AUTO [id number] 01:34:00 Test Item Value Reference Range Interpretation [...] (BEAKER) (test code = 2801) BASIC METABOLIC [id number] 01:29:00 Test Item Value Reference Range Interpretation [...] S NOT APPLICABLE FOR DIALYSIS PATIEN TS. Wagon Person ID - PIAYA [id number] 01:13:00 Test Item Value Reference Range Interpretation Comments PARTIAL THROMBOPLASTIN TIME 56.4 seconds 22.5-36.0 H (BEAKER) (test code = 760) POCT-GLUCOSE [id number] 23:59:00 Test Item Value Reference Range Interpretation Comments POC-GLUCOSE METER 134 mg/dL 70-110 H : TESTED A T [facility] 6720 (BEAKER) (test code = [facility] Amnis [facility], 153) 90935: Wagon Person/Techni kush ID = [id number] for SCOOTER MIRZA [id number] 18:52:00 Test Item Value Reference Range Interpretation Comments PARTIAL THROMBOPLASTIN TIME 47.3 seconds 22.5-36.0 H (BEAKER) (test code = 760) [id number] 18:18:00 Test Item Value Reference Range Interpretation Comments PARTIAL THROMBOPLASTIN TIME > seconds 22.5-36.0 HH (BEAKER) (test code = 760) POCT-GLUCOSE [id number] 18:15:00 Test Item Value Reference Range Interpretation Comments POC-GLUCOSE METER 143 mg/dL 70-110 H : TESTED A T [facility] 6720 (BEAKER) (test code = [facility], 1538) 63909: Wagon Person/Techni kush ID = [id number] for DO BBINS, RANDI POCT-GLUCOSE [id number] 12:15:00 Test Item Value Reference Range Interpretation Comments POC-GLUCOSE METER 123 mg/dL 70-110 H : TESTED A T [facility] 6720 (BEAKER) (test code = [facility] Humberto [facility], 1538) 04023: Wagon Person/Techni kush ID = [id number] for DO BBINS, RANDI [id number] 11:28:00 Test Item Value Reference Range Interpretation Comments PARTIAL THROMBOPLASTIN TIME 57.3 seconds 22.5-36.0 H (BEAKER) (test code = 760) POCT-GLUCOSE [id number] 06:49:00 Test Item Value Reference Range Interpretation Comments POC-GLUCOSE METER 86 mg/dL 70-110 : TESTED A T [facility] 6720 (BEAKER) (test code = [facility], 1538) 11229: Wagon Person/Techni kush ID = [id number] for SCOOTER MAYA BASIC METABOLIC [id number] 06:19:00 Test Item Value Reference Range Interpretation [...] S NOT APPLICABLE FOR DIALYSIS PATIEN TS. Wagon Person ID - PIAYA LCBC W/PLT COUNT & AUTO [id number] 04:57:00 Test Item Value Reference Range Interpretation [...] PERCENT (BEAKER) (test code = 2801) POCT-GLUCOSE [id number] 02:25:00 Test Item Value Reference Range Interpretation Comments POC-GLUCOSE METER 69 mg/dL 70-110 L : TESTED A T [facility] 6720 (BEAKER) (test code = [facility] Humberto [facility], 1538) 92442: Wagon Person/Techni kush ID = [id number] for KEIT H, RADHA FL, FLUORO, NON-SPECIFIC, UP TO 1 [id number] 01:47:00Reason for exam:- >orif right femurFluoroscopic unit utilized for a procedure performed in the OR. No interpretation was requested. Refer to the operative report for findings. Refer to PACS for patient radiation dose information.[id number] 20:21:00 Test Item Value Reference Range Interpretation Comments PARTIAL THROMBOPLASTIN TIME 41.1 seconds 22.5-36.0 H (BEAKER) (test code = 760) 6 hours after starting heparin infusion and as indicated per sliding scalePOCT- GLUCOSE [id number] 17:57:00 Test Item Value Reference Range Interpretation Comments POC-GLUCOSE METER 82 mg/dL 70-110 : TESTED A T [facility] 6720 (BEAKER) (test code = [facility], 1538) 82855: Wagon Person/Techni kush ID = [id number] for ALMA DELIA PATHAK [id number] 17:14:00 Test Item Value Reference Range Interpretation Comments FERRITIN (BEAKER) (test code = 5182.19 ng/mL 5.00-275.00 H 361) Wagon Person ID - JOEL BEASLEY, TIBC, % SAT. (WITHOUT FERRITIN)2020-02-27 16:01:00 Test Item Value Reference Range Interpretation Comments IRON (BEAKER) (test code = 547) 125.0 ug/dL 40.0-160.0 TOTAL IRON BINDING CAPACITY 219 ug/dL 250-450 L (BEAKER) (test code = 769) IRON % SATURATION (2) (BEAKER) 57 % 20-55 H (test code = 2590) Wagon Person ID - JOEL [id number] 12:54:00 Test Item Value Reference Range Interpretation Comments PARTIAL THROMBOPLASTIN TIME 41.5 seconds 22.5-36.0 H (BEAKER) (test code = 760) Prior to initiating heparinPLATELET [id number] 12:51:00 Test Item Value Reference Range Interpretation Comments PLATELET COUNT (BEAKER) (test 116 K/CU MM 150-450 L code = 756) Wagon Person ID - [id number] clotSARS-COV2/RT-PCR ([facility])2020-02-27 12:46:00 Test Item Value Reference Range Interpretation Comments SARS-COV2/RT-PCR (test code = Negative Not Detected, Negative [id number]) SARS-COV-[address] [facility] (test code = 1216613) Negative result for this test determines that [...] 564(g) of the Act.Fact Sheet for Healthcare Providers:https://www.YieldMo.com/sites/default/files/product/documents/Fact_Shee z_VU_Rjbhunjey_Muxq_ZGSQ-CiG-7.pdfFact Sheet for Healthcare Patients:https://www.YieldMo.Hypemarks/sites/default/files/product/ documents/Tlty_Eomer_Oxtbdnxp_Bohl_ARIS-SkX-5.pdfPerforming Laboratory:[facility], [place] [address]LCXX-ZOGDCHC METER 2020-02-27 12:12:00 Test Item Value Reference Range Interpretation Comments POC-GLUCOSE METER 90 mg/dL 70-110 : TESTED A T [facility] 6720 (BEAKER) (test code = [place] Paul [facility], 1538) 97782: Wagon Person/Techni kush ID = [id number] for SELENA BIRCH HEPATITIS B SURFACE [id number] 11:32:00 Test Item Value Reference Range Interpretation Comments HEPATITIS B SURFACE ANTIGEN (2) Nonreactive Nonreactive (BEAKER) (test code = 2585) Specimen is considered negative for HBsAg.RAD, WRIST, 2 VIEWS, [id number] 09:19:00Reason for exam:->fall, immbolityFINAL REPORT TECHNIQUE: Frontal, oblique, and lateral views of the left wrist. INDICATION: Fall immobility. COMPARISON: None. FINDINGS:No acute fractures or dislocations.Joint spaces are within normal limits.There are atherosclerotic calcifications of the vessels. Surgical clipsproject over the distal radius.. IMPRESSION:No acute osseous abnormality. Signed: Bhavin Artis MDReport Verified Date/Time: 02/27/2020 09:19:08 Reading Location: [facility] C0[facility] CT Body ReadingRoom [id number] 08:30:00 Test Item Value Reference Range Interpretation Comments POTASSIUM (BEAKER) (test code = 5.0 meq/L 3.5-5.1 379) Wagon Person ID - AKSHAT LRAD, PELVIS, 1 OR 2 [id number] 07:23:00Reason for exam:->femoral neck fxFINAL REPORT RAD, [...] Verified Date/Time: 02/27/2020 07:23:52 Reading Location: [address] Neuro Reading Room RAD, HIP, 2 VIEWS, [id number] 07:23:00Reason for exam:- >femoral neck fractureFINAL REPORT [...] Verified Date/Time: 02/27/2020 07:23:52 Reading Location: [address] Neuro Reading Room POCT-GLUCOSE [id number] 06:26:00 Test Item Value Reference Range Interpretation Comments POC-GLUCOSE METER 72 mg/dL 70-110 : TESTED A T [facility] 6720 [facility] (test code = [place] [facility], 1538) 30190: Wagon Person/Techni kush ID = [id number] for BRITNEY SCOOTER ESPINAL COMPREHENSIVE METABOLIC [id number] 02:44:00 Test Item Value Reference Range Interpretation [...] S NOT APPLICABLE FOR DIALYSIS PATIEN TS. Wagon Person ID - AKSHAT LPROTHROMBIN TIME/[id number] 02:03:00 Test Item Value Reference Range Interpretation [...] INR is2.5-3.5 for patients wiht mechanical heart valves.[id number] 01:56:00 Test Item Value Reference Range Interpretation Comments PHOSPHORUS (BEAKER) (test code = 7.3 mg/dL 2.3-4.7 H 604) Wagon Person ID - AKSHAT [id number] 01:56:00 Test Item Value Reference Range Interpretation Comments MAGNESIUM (BEAKER) (test code = 1.9 mg/dL 1.6-2.6 627) Wagon Person JOSE ODEN LCBC W/PLT COUNT & AUTO [id number] 01:33:00 Test Item Value Reference Range Interpretation [...] (test code = 2801) AFB CULTURE + [id number] 07:33:00 Test Item Value Reference Range Interpretation Comments CULTURE (BEAKER) (test No acid-fast bacilli code = 1095) isolated in 42 days AFB SMEAR (BEAKER) No acid fast bacilli (test code = 994) seen FUNGUS CULTURE + [id number] 17:26:00 Test Item Value Reference Range Interpretation Comments CULTURE (BEAKER) (test No fungus isolated in code = 1095) 28 days [facility]US SMEAR ([facility] No fungi seen (test code = 1406) PROTHROMBIN [id number] 00:05:00 Test Item Value Reference Range Interpretation Comments PT PATIENT (test code = PTP) 18.2 SECONDS 9.3-12.9 H INTERNATIONAL NORMAL RATIO 1.57 INR Unit 0.8-1.2 H (test code = INR) POCT-GLUCOSE [id number] 13:35:00 Test Item Value Reference Range Interpretation Comments POC-GLUCOSE METER 116 mg/dL 70-110 H TESTED AT [place] [address] ([facility]) (test code = [facility] 1538) [address] POCT-GLUCOSE [id number] 08:54:00 Test Item Value Reference Range Interpretation Comments POC-GLUCOSE METER 99 mg/dL 70-110 TESTED AT [place] [address] ([facility]) (test code = [facility] [address] 1538) [id number] 06:34:00 Test Item Value Reference Range Interpretation Comments PARTIAL THROMBOPLASTIN TIME 46.7 seconds 22.5-36.0 H ([facility]) (test code = 760) While on warfarin.PROTHROMBIN TIME/[id number] 06:33:00 Test Item Value Reference Range Interpretation Comments PROTIME ([facility]) (test code = 26.5 seconds 11.7-14.7 H 759) INR ([facility]) (test code = 370) 2.6 <=5.9 [...] ([facility]) (test code = 413) POCT-GLUCOSE [id number] 21:38:00 Test Item Value Reference Range Interpretation Comments POC-GLUCOSE METER 192 mg/dL 70-110 H TESTED AT [place] [address] ([facility]) (test code = [place]OSTER Paul [facility] 1538) [address] POCT-GLUCOSE [id number] 13:01:00 Test Item Value Reference Range Interpretation Comments POC-GLUCOSE METER 200 mg/dL 70-110 H TESTED AT [place] [address] ([facility]) (test code = [place] Paul [facility] 1538) 114[address] POCT-GLUCOSE [id number] 08:00:00 Test Item Value Reference Range Interpretation Comments POC-GLUCOSE METER 123 mg/dL 70-110 H TESTED AT [place] [address] ([facility]) ([facility] 1538) [address] [id number] 06:40:00 Test Item Value Reference Range Interpretation Comments PARTIAL THROMBOPLASTIN TIME 83.1 seconds 22.5-36.0 H ([facility]) (test code = 760) [id number] 05:54:00 Test Item Value Reference Range Interpretation Comments PARTIAL THROMBOPLASTIN TIME > seconds 22.5-36.0 HH ([facility]) (test code = 760) PROTHROMBIN [id number] 05:30:00 Test Item Value Reference Range Interpretation [...] (BEAKER) (test code = 413) BASIC METABOLIC [id number] 05:10:00 Test Item Value Reference Range Interpretation [...] APPLICABLE FOR DIALYSIS PATIEN TS. OCCULT BLOOD, [id number] 23:46:00 Test Item Value Reference Range Interpretation Comments FECAL OCCULT BLOOD (JARROD) (test Negative Negative code = 618) POCT-GLUCOSE [id number] 22:52:00 Test Item Value Reference Range Interpretation Comments POC-GLUCOSE METER 192 mg/dL 70-110 H TESTED AT [place] [address] ([facility]) (test code = MARIA GOSMAN Paul [facility] 1538) [address] POCT-GLUCOSE [id number] 17:11:00 Test Item Value Reference Range Interpretation Comments POC-GLUCOSE METER 149 mg/dL 70-110 H TESTED AT [place] [address] ([facility]) (test code = [facility] Amnis [facility] 1538) [address] PROTHROMBIN [id number] 13:00:00 Test Item Value Reference Range Interpretation [...] mg/dL 70-110 H TESTED AT [place] [address] ([facility]) (test code = [facility] Am[place] [facility] 1538) [address] RAD, CHEST, 1 VIEW, NON [id number] 08:02:00Reason for exam:->Post opShould this be performed [...] MDReport Verified Date/Time: 01/04/2019 08:02:18 Reading Location: [facility] B1 C013W Consult Reading Room Electronicallysigned by: EDENILSON BLOOM M.D. on 01/04/2019 08:02 AMPOCT-GLUCOSE [id number] 07:42:00 Test Item Value Reference Range Interpretation Comments POC-GLUCOSE METER 98 mg/dL 70-[address] [facility] 6720 (BEAKER) (test code = [place] [address] 1538) BASIC METABOLIC [id number] 07:28:00 Test Item Value Reference Range Interpretation [...] 0-0 H (BEAKER) (test code = 413) [id number] 06:08:00 Test Item Value Reference Range Interpretation Comments PARTIAL THROMBOPLASTIN TIME 70.6 seconds 22.5-36.0 H (BEAKER) (test code = 760) [id number] 23:32:00 Test Item Value Reference Range Interpretation Comments PARTIAL THROMBOPLASTIN TIME 77.2 seconds 22.5-36.0 H (BEAKER) (test code = 760) POCT-GLUCOSE [id number] 21:55:00 Test Item Value Reference Range Interpretation Comments POC-GLUCOSE METER 150 mg/dL 70-[address] [facility] 6720 ([facility]) (test code = [place] 1538) [address] [id number] 18:25:00 Test Item Value Reference Range Interpretation Comments PARTIAL THROMBOPLASTIN TIME 71.2 seconds 22.5-36.0 H (BEAKER) (test code = 760) POCT-GLUCOSE [id number] 13:45:00 Test Item Value Reference Range Interpretation Comments POC-GLUCOSE METER 375 mg/dL 70-110 H Notified R Toy PÉREZ/TESTED (JARROD) (test code = AT [facility] 6720 [facility] 1538) [facility] 7[address] 0 [id number] 10:26:00 Test Item Value Reference Range Interpretation Comments PARTIAL THROMBOPLASTIN TIME 94.0 seconds 22.5-36.0 H (JARROD) (test code = 760) While on warfarin.PROTHROMBIN TIME/[id number] 10:24:00 Test Item Value Reference Range Interpretation [...] 6720 (JARROD) (test code = [place]OSTER Paul [facility] 1538) [address] RAD, CHEST, 1 VIEW, NON [id number] 08:19:00Reason for exam:->Post opShould this be performed [...] Lisa Verified Date/Time: 01/03/2019 08:19:51 Reading Location: [facility] C013 Neuro Reading Room [id number] 03:31:00 Test Item Value Reference Range Interpretation Comments PARTIAL THROMBOPLASTIN TIME 64.2 seconds 22.5-36.0 H (BEAKER) (test code = 760) BASIC METABOLIC [id number] 03:21:00 Test Item Value Reference Range Interpretation [...] (BEAKER) (test code = 412) PLATELET COUNT ([facility]) (test 167 K/CU MM 150-450 code = 756) MEAN PLATELET VOLUME ([facility]) 8.7 fL 9.4-12.4 L (test code = 754) NUCLEATED RED BLOOD CELLS 1 /100 WBC 0-0 H ([facility]) (test code = 413) POCT-GLUCOSE [id number] 22:54:00 Test Item Value Reference Range Interpretation Comments POC-GLUCOSE METER 206 mg/dL 70-110 H TESTED AT [place] [address] ([facility]) (test code = FOSTER Paul [facility] 1538) [address] [id number] 19:36:00 Test Item Value Reference Range Interpretation Comments PARTIAL THROMBOPLASTIN TIME 79.3 seconds 22.5-36.0 H ([facility]) (test code = 760) POCT-GLUCOSE [id number] 17:59:00 Test Item Value Reference Range Interpretation Comments POC-GLUCOSE METER 186 mg/dL 70-110 H TESTED AT [place] [address] ([facility]) (test code = FOSTER Paul [facility] 1538) [address] POCT-GLUCOSE [id number] 13:54:00 Test Item Value Reference Range Interpretation Comments POC-GLUCOSE METER 139 mg/dL 70-110 H TESTED AT [place] [address] ([facility]) (test code = [facility] Humberto [facility] 1538) [address] POCT-GLUCOSE [id number] 13:05:00 Test Item Value Reference Range Interpretation Comments POC-GLUCOSE METER 163 mg/dL 70-110 H TESTED AT [place] [address] ([facility]) (test code = [facility] Humberto [facility] 1538) [address] [id number] 12:49:00 Test Item Value Reference Range Interpretation Comments PARTIAL THROMBOPLASTIN TIME 64.9 seconds 22.5-36.0 H ([facility]) (test code = 760) OCCULT BLOOD, [id number] 12:31:00 Test Item Value Reference Range Interpretation Comments FECAL OCCULT BLOOD ([facility]) (test Negative Negative code = 618) RAD, CHEST, 1 VIEW, NON [id number] 10:37:00Reason for exam:->Post opShould this be performed [...] Date/Time: 01/02/2019 10:37:35 Reading Loc ation: [facility]UR[facility] Radiology Reading Room POCT-GLUCOSE [id number] 08:07:00 Test Item Value Reference Range Interpretation Comments POC-GLUCOSE METER 107 mg/dL 70-[address] [facility] 6720 ([facility]) (test code = [place]ER Paul [facility] 1538) [address] [id number] 04:48:00 Test Item Value Reference Range Interpretation Comments PARTIAL THROMBOPLASTIN TIME 106.0 seconds 22.5-36.0 H ([facility] (test code = 760) While on warfarin.BASIC METABOLIC [id number] 04:48:00 Test Item Value Reference Range Interpretation [...] NOT APPLICABLE FOR DIALYSIS PATIEN TS. PROTHROMBIN TIME/[id number] 04:39:00 Test Item Value Reference Range Interpretation [...] 0-0 (BEAKER) (test code = 413) POCT-GLUCOSE [id number] 22:17:00 Test Item Value Reference Range Interpretation Comments POC-GLUCOSE METER 117 mg/dL 70-[address] [facility] 6720 ([facility]) (test code = [place]OSTER Paul [facility] 1538) [address] RAD, CHEST, 1 VIEW, NON [id number] 19:40:00Reason for exam:->Post opShould this be performed [...] Bloom Verified Date/Time: 01/01/2019 19:40:01 Reading Location: [address] Consult Reading Room POCT-GLUCOSE [id number] 18:22:00 Test Item Value Reference Range Interpretation Comments POC-GLUCOSE METER 159 mg/dL 70-[address] [facility] 6720 ([facility]) (test code = [place]OSTER Paul [facility] 1538) [address] POCT-GLUCOSE [id number] 14:12:00 Test Item Value Reference Range Interpretation Comments POC-GLUCOSE METER 135 mg/dL 70-[address] [facility] 6720 ([facility]) (test code = [facility] 1538) [address] HEPATITIS B SURFACE [id number] 11:52:00 Test Item Value Reference Range Interpretation Comments HEPATITIS B SURFACE ANTIGEN (2) Nonreactive Nonreactive ([facility]) (test code = 2585) POCT-GLUCOSE [id number] 08:40:00 Test Item Value Reference Range Interpretation Comments POC-GLUCOSE METER 85 mg/dL 70-[address] [facility] 6720 ([facility]) (test code = [facility] [address] 1538) BASIC METABOLIC [id number] 04:17:00 Test Item Value Reference Range Interpretation [...] S NOT APPLICABLE FOR DIALYSIS PATIEN TS. [id number] 03:40:00 Test Item Value Reference Range Interpretation Comments PARTIAL THROMBOPLASTIN TIME 84.1 seconds 22.5-36.0 H (BEAKER) (test code = 760) While on warfarin.PROTHROMBIN TIME/[id number] 03:39:00 Test Item Value Reference Range Interpretation [...] (AKER) (test code = 412) PLATELET COUNT ([facility]) (test 186 K/CU MM 150-450 code = 756) MEAN PLATELET VOLUME ([facility]) 9.0 fL 9.4-12.4 L (test code = 754) NUCLEATED RED BLOOD CELLS 0 /100 WBC 0-0 ([facility]) (test code = 413) POCT-GLUCOSE [id number] 22:08:00 Test Item Value Reference Range Interpretation Comments POC-GLUCOSE METER 194 mg/dL 70-110 H TESTED AT [place] [address] ([facility]) (test code = FOSTER BRANDON 1538) [address] POCT-GLUCOSE [id number] 22:03:00 Test Item Value Reference Range Interpretation Comments POC-GLUCOSE METER 203 mg/dL 70-110 H TESTED AT [place] [address] ([facility]) (test code = FOSTER VU MD 1538) [address]185 POCT-GLUCOSE [id number] 21:42:00 Test Item Value Reference Range Interpretation Comments POC-GLUCOSE METER 42 mg/dL 70-110 L TESTED AT [place] [address] ([facility]) (test code = [place] [address] 1538) [id number] 21:35:00 Test Item Value Reference Range Interpretation Comments PARTIAL THROMBOPLASTIN TIME 80.4 seconds 22.5-36.0 H ([facility]) (test code = 760) POCT-GLUCOSE [id number] 18:03:00 Test Item Value Reference Range Interpretation Comments POC-GLUCOSE METER 144 mg/dL 70-110 H TESTED AT [place] [address] ([facility]) (test code = FOSTER VU MD 1538) 47[address] TISSUE [id number] 16:33:00Surgical Pathology Report Case: [id number] Authorizing Provider: ZacharyEnmanuel Collected: 12/26/2018 1537 MD Liban OrderingLocation: [address] Received: 12/29/2018 0814 Service Pathologist: Brigida [...] stains. GMSImmunohistochemistry technical testing was performed at [facility], Pathology Laboratory where it was developed [...] toperform high complexity clinical laboratory testing.CPT CODE: [id number] electronically signed by Brigida Parks MD on [...] ARE NEGATIVE Signing Pathologist Direct Phone Line: [phone] signed by Brigida Parks MD on 12/30/2018 at 6:43 PMPreliminary result electronically signed by Brigida Parks MD on 12/29/2018 at 4:54 [id number] X 2; 88318; 55667; 10251 X 2Upper endoscopy, biopsyPreoperative and postoperative diagnosis: [...] AND CMVImmunohistochemistry technical testing was performed at [facility], Pathology Laboratory where it was developed [...] qualified toperform high complexity clinical laboratory testing.POCT-GLUCOSE [id number] 13:57:00 Test Item Value Reference Range Interpretation Comments POC-GLUCOSE METER 178 mg/dL 70-[address] [facility] [address] ([facility]) (test code = MARIA GOSMAN Paul [facility] 1538) [address] [id number] 12:54:00 Test Item Value Reference Range Interpretation Comments PARTIAL THROMBOPLASTIN TIME 69.4 seconds 22.5-36.0 H ([facility]) (test code = 760) RAD, CHEST, 1 VIEW, NON [id number] 09:26:00Reason for exam:->Post opShould this be performed [...] MDReport Verified Date/Time: 12/31/2018 09:26:31 Reading Location: [facility] Radiology Reading Room POCT-GLUCOSE [id number] 09:01:00 Test Item Value Reference Range Interpretation Comments POC-GLUCOSE METER 162 mg/dL 70-[address] [facility] 67[address] ([facility]AKER) (test code = FOSTER VU MD 1538) [address] BASIC METABOLIC [id number] 06:50:00 Test Item Value Reference Range Interpretation [...] NOT APPLICABLE FOR DIALYSIS PATIEN TS. PROTHROMBIN [id number] 06:38:00 Test Item Value Reference Range Interpretation Comments PROTIME ([facility]) (test code = 19.1 seconds 11.7-14.7 H 759) INR ([facility]) (test code = 370) 1.7 <=5.9 RECOMMENDED COUMADIN/WARFARIN INR THERAPY RANGESSTANDARD DOSE: 2.0 - 3.0 Includes: PROPHYLAXIS forvenous thrombosis, systemic embolization; TREATMENT for venous thrombosis and/or pulmonary embolus.HIGH RISK: Target INR is 2.5-3.5 for patients with mechanical heart valves.While on warfarin.[id number] 06:37:00 Test Item Value Reference Range Interpretation [...] 0-0 (BEAKER) (test code = 413) POCT-GLUCOSE [id number] 00:45:00 Test Item Value Reference Range Interpretation Comments POC-GLUCOSE METER 124 mg/dL 70-[address] [facility] 67[address] (BEAKER) (test code = FOSTER VU MD 1538) [address] [id number] 19:14:00 Test Item Value Reference Range Interpretation Comments PARTIAL THROMBOPLASTIN TIME 57.8 seconds 22.5-36.0 H ([facility]) (test code = 760) POCT-GLUCOSE [id number] 17:53:00 Test Item Value Reference Range Interpretation Comments POC-GLUCOSE METER 133 mg/dL 70-110 H TESTED AT [place] [address] ([facility]) (test code = FOSTER Paul [facility] 1538) [address] POCT-GLUCOSE [id number] 13:19:00 Test Item Value Reference Range Interpretation Comments POC-GLUCOSE METER 147 mg/dL 70-110 H TESTED AT [place] [address] ([facility]) (test code = FOSTER Paul [facility] 1538) [address] [id number] 12:43:00 Test Item Value Reference Range Interpretation Comments PARTIAL THROMBOPLASTIN TIME 57.0 seconds 22.5-36.0 H ([facility]) (test code = 760) [id number] 10:17:00 Test Item Value Reference Range Interpretation Comments PARTIAL THROMBOPLASTIN TIME 134.5 seconds 22.5-36.0 H ([facility]) (test code = 760) POCT-GLUCOSE [id number] 07:43:00 Test Item Value Reference Range Interpretation Comments POC-GLUCOSE METER 107 mg/dL 70-110 TESTED AT [place] [address] ([facility]) (test code = MARIA GSC Humberto [facility] 1538) [address] BASIC METABOLIC [id number] 06:46:00 Test Item Value Reference Range Interpretation [...] PATIEN TS. RAD, CHEST, 1 VIEW, NON [id number] 06:25:00Reason for exam:->Post opShould this be performed [...] Lisa Verified Date/Time: 12/30/2018 06:25:51 Reading Location: [address] Neuro Reading Room PROTHROMBIN TIME/[id number] 06:06:00 Test Item Value Reference Range Interpretation [...] (BEAKER) (test code = 412) PLATELET COUNT ([facility]) (test 139 K/CU MM 150-450 L code = 756) MEAN PLATELET VOLUME (AKER) 9.1 fL 9.4-12.4 L (test code = 754) NUCLEATED RED BLOOD CELLS 0 /100 WBC 0-0 ([facility]) (test code = 413) POCT-GLUCOSE [id number] 22:19:00 Test Item Value Reference Range Interpretation Comments POC-GLUCOSE METER 179 mg/dL 70-110 H TESTED AT [place] [address] ([facility]) (test code = FOSTER VU MD 1538) [address]82 POCT-GLUCOSE [id number] 17:39:00 Test Item Value Reference Range Interpretation Comments POC-GLUCOSE METER 181 mg/dL 70-110 H TESTED AT [place] [address] ([facility]) (test code = FOSTER VU MD 1538) [address]391 POCT-GLUCOSE [id number] 13:14:00 Test Item Value Reference Range Interpretation Comments POC-GLUCOSE METER 102 mg/dL 70-110 TESTED AT [place] [address] ([facility]) (test code = FOSTER Paul [facility] 1538) [address] RAD, CHEST, 1 VIEW, NON [id number] 08:56:00Reason for exam:->Post opShould this be performed [...] Bloomort Verified Date/Time: 12/29/2018 08:56:32 Reading Location: [facility] Radiology Reading Room Electronically signed by: EDENILSON BLOOM M.D.on 12/29/2018 08:56 AMPOCT-GLUCOSE [id number] 07:53:00 Test Item Value Reference Range Interpretation Comments POC-GLUCOSE METER 135 mg/dL 70-[address] [facility] 67[address] (BEAKER) (test code = FOSTER VU MD 1538) [address]27 [id number] 06:45:00 Test Item Value Reference Range Interpretation Comments PARTIAL THROMBOPLASTIN TIME 83.5 seconds 22.5-36.0 H ([facility]) (test code = 760) While on warfarin.PROTHROMBIN TIME/[id number] 06:44:00 Test Item Value Reference Range Interpretation [...] WBC 0-0 (BEAKER) (test code = 413) [id number] 00:01:00 Test Item Value Reference Range Interpretation Comments PARTIAL THROMBOPLASTIN TIME 78.5 seconds 22.5-36.0 H ([facility]) (test code = 760) POCT-GLUCOSE [id number] 21:26:00 Test Item Value Reference Range Interpretation Comments POC-GLUCOSE METER 139 mg/dL 70-[address] [facility] 67[address] (BEAKER) (test code = FOSTER Paul [facility] 1538) [address] POCT-GLUCOSE [id number] 17:58:00 Test Item Value Reference Range Interpretation Comments POC-GLUCOSE METER 146 mg/dL 70-[address] [facility] 67[address] ([facility]) (test code = FOSTER Paul [facility] 1538) [address] [id number] 17:16:00 Test Item Value Reference Range Interpretation Comments PARTIAL THROMBOPLASTIN TIME 34.5 seconds 22.5-36.0 ([facility]) (test code = 760) Prior to initiating heparinPOCT-GLUCOSE [id number] 12:54:00 Test Item Value Reference Range Interpretation Comments POC-GLUCOSE METER 133 mg/dL 70-[address] [facility] 67[address] ([facility]) (test code = FOSTER Paul [facility] 1538) [address] RAD, CHEST, 1 VIEW, NON [id number] 08:06:00Reason for exam:->Post opShould this be performed at the bedside?->YesFINAL REPORT Chest one view. Clinical history: Post op Comparison: 12/27/2018 Discussion: A frontal chest is provided. Cardiomediastinal contours are unchanged. Lines and tubesare in stable position. Unchanged right-sided pleural-parenchymal opacities. Left lung is grossly clear. Vessels do not appear engorged. No pneumothorax. Signed: Dionicio Chery Verified Date/Time: 12/28/2018 08:06:07 Reading Location: [address] Neuro Reading Room BASIC METABOLIC [id number] 06:52:00 Test Item Value Reference Range Interpretation [...] NOT APPLICABLE FOR DIALYSIS PATIEN TS. PROTHROMBIN TIME/[id number] 06:31:00 Test Item Value Reference Range Interpretation [...] ([facility]) (test code = 413) POCT-GLUCOSE [id number] 21:41:00 Test Item Value Reference Range Interpretation Comments POC-GLUCOSE METER 163 mg/dL 70-[address] [facility] [address] ([facility]) (test code = FOSTER Paul [place] 1538) [address] POCT-GLUCOSE [id number] 17:23:00 Test Item Value Reference Range Interpretation Comments POC-GLUCOSE METER 119 mg/dL 70-[address] [facility] 67[address] ([facility]) (test code = FOSTER Paul [place] 1538) [address] RAD, CHEST, 1 VIEW, NON [id number] 14:49:00Reason for exam:->Post opShould this be performed [...] Romeort Verified Date/Time: 12/27/2018 14:49:48 Reading Location: [address] Ortho Consult Reading Room ANG, NON-TUNNELED CATH >5 Y.O. [id number] 14:17:00Reason for exam:->Central line placement, poor access, [...] guide wire was advanced centrally. A 7 Turkmen 20 cm triple lumen catheter was advanced [...] Sykes Verified Date/Time: 12/27/2018 14:17:02 Reading Location: [facility] P048 Angio Body Reading Room [id number] 13:44:00 Test Item Value Reference Range Interpretation Comments PARTIAL THROMBOPLASTIN TIME 44.3 seconds 22.5-36.0 H ([facility]) (test code = 760) Prior to initiating heparinPOCT-GLUCOSE [id number] 13:27:00 Test Item Value Reference Range Interpretation Comments POC-GLUCOSE METER 127 mg/dL 70-110 H TESTED AT [place] [address] ([facility]) (test code = [facility] 1538) 9[address] POCT-GLUCOSE [id number] 08:58:00 Test Item Value Reference Range Interpretation Comments POC-GLUCOSE METER 79 mg/dL 70-110 TESTED AT [place] [address] ([facility]) (test code = [facility] [address] 1538) BASIC METABOLIC [id number] 07:09:00 Test Item Value Reference Range Interpretation [...] NOT APPLICABLE FOR DIALYSIS PATIEN TS. PROTHROMBIN TIME/[id number] 06:52:00 Test Item Value Reference Range Interpretation [...] WBC 0-0 (test code = 413) POCT-GLUCOSE [id number] 23:54:00 Test Item Value Reference Range Interpretation Comments POC-GLUCOSE METER 73 mg/dL 70-110 TESTED AT [place] [address] ([facility]) (test code = FOSTER Paul [facility] [address] 1538) POCT-GLUCOSE [id number] 16:02:00 Test Item Value Reference Range Interpretation Comments POC-GLUCOSE METER 108 mg/dL 70-110 TESTED AT [place] [address] ([facility]) (test code = FOSTER Paul [facility] 1538) [address] POCT-GLUCOSE [id number] 15:24:00 Test Item Value Reference Range Interpretation Comments POC-GLUCOSE METER 74 mg/dL 70-110 TESTED AT [place] [address] ([facility]) [facility] [address] 1538) POCT-GLUCOSE [id number] 10:29:00 Test Item Value Reference Range Interpretation Comments POC-GLUCOSE METER 88 mg/dL 70-110 TESTED AT [place] [address] ([facility]) ([facility] = [facility] [address] 1538) RAD, CHEST, 1 VIEW, NON [id number] 07:33:00Reason for exam:->Post opShould this be performed [...] Mejiaeport Verified Date/Time: 12/26/2018 07:33:38 Reading Location: [facility] Radiology Reading Room BASIC METABOLIC [id number] 06:42:00 Test Item Value Reference Range Interpretation [...] 0-0 H (test code = 413) PROTHROMBIN [id number] 05:44:00 Test Item Value Reference Range Interpretation Comments PROTIME (BEAKER) (test code = 24.4 seconds 11.7-14.7 H 759) INR ([facility]) (test code = 370) 2.2 <=5.9 RECOMMENDED COUMADIN/WARFARIN INR THERAPY RANGESSTANDARD DOSE: 2.0 - 3.0 Includes: PROPHYLAXIS forvenous thrombosis, systemic embolization; TREATMENT for venous thrombosis and/or pulmonary embolus.HIGH RISK: Target INR is 2.5-3.5 for patients with mechanical heart valves.POCT-GLUCOSE [id number] 00:06:00 Test Item Value Reference Range Interpretation Comments POC-GLUCOSE METER 88 mg/dL 70-110 TESTED AT [place] [address] ([facility]) (test code = FOSTER Paul [facility] [address] 1538) POCT-GLUCOSE [id number] 19:06:00 Test Item Value Reference Range Interpretation Comments POC-GLUCOSE METER 121 mg/dL 70-110 H TESTED AT [place] [address] ([facility]) (test code = [facility] Humberto [facility] 1538) [address] PROTHROMBIN [id number] 16:10:00 Test Item Value Reference Range Interpretation Comments PROTIME ([facility]) (test code = 30.1 seconds 11.7-14.7 H 759) INR ([facility]) (test code = 370) 2.9 <=5.9 RECOMMENDED COUMADIN/WARFARIN INR THERAPY RANGESSTANDARD DOSE: 2.0 - 3.0 Includes: PROPHYLAXIS forvenous thrombosis, systemic embolization; TREATMENT for venous thrombosis and/or pulmonary embolus.HIGH RISK: Target INR is 2.5-3.5 for patients with mechanical heart valves.BASIC METABOLIC [id number] 16:10:00 Test Item Value Reference Range Interpretation [...] S NOT APPLICABLE FOR DIALYSIS PATIEN TS. [id number] 16:09:00 Test Item Value Reference Range Interpretation [...] 0-0 H (test code = 413) POCT-GLUCOSE [id number] 08:03:00 Test Item Value Reference Range Interpretation Comments POC-GLUCOSE METER 89 mg/dL 70-[address] [facility] 6720 ([facility]) (test code = [place] [address] 1538) RAD, CHEST, 1 VIEW, NON [id number] 07:46:00Reason for exam:->Post opShould this be performed at the bedside?->YesFINAL REPORT Chest one view. Clinical history: Post op Comparison: 12/24/2018 Discussion: A frontal chest is provided. Cardiomediastinal contours are unchanged. Stable appearance of pleural-parenchymal opacity at the right mid to lower lung. There is a tiny right apical pneumothorax, unchanged. Probable trace left effusion. Signed: Dionicio Chery Verified Date/Time: 07:46:01 Reading Location: [facility] Radiology Reading Room RAD, ABDOMEN/KUB, 1 VIEW [id number] 07:25:00Reason for exam:->abdominal distentionShould this be performed [...] Chery Verified Date/Time: 12/25/2018 07:25:40 Reading Location: [facility] Radiology Reading Room POCT-GLUCOSE [id number] 22:06:00 Test Item Value Reference Range Interpretation Comments POC-GLUCOSE METER 102 mg/dL 70-110 TESTED AT [place] [address] ([facility]) (test code = FOSTER Paul [place] 1538) [address] POCT-GLUCOSE [id number] 18:44:00 Test Item Value Reference Range Interpretation Comments POC-GLUCOSE METER 100 mg/dL 70-110 TESTED AT [place] [address] ([facility]) (test code = [facility] Humberto [place] 1538) [address] POCT-GLUCOSE [id number] 14:54:00 Test Item Value Reference Range Interpretation Comments POC-GLUCOSE METER 103 mg/dL 70-110 TESTED AT [place] [address] ([facility]) (test code = [facility] Humberto [facility] 1538) [address] [id number] 08:07:00 Test Item Value Reference Range Interpretation Comments FERRITIN ([facility]) (test code = 2044 ng/mL 5-275 H 361) POCT-GLUCOSE [id number] 07:57:00 Test Item Value Reference Range Interpretation Comments POC-GLUCOSE METER 76 mg/dL 70-110 TESTED AT [place] [address] ([facility]) (test code = [facility] Humberto [facility] [address] 1538) RAD, CHEST, 1 VIEW, NON [id number] 07:57:00Reason for exam:->Post opShould this be performed [...] MDReport Verified Date/Time: 12/24/2018 07:57:06 Reading Location: [facility] Radiology Reading Room CBC (HEMOGRAM ONLY) [...] H (test code = 413) BASIC METABOLIC [id number] 07:14:00 Test Item Value Reference Range Interpretation [...] S NOT APPLICABLE FOR DIALYSIS PATIEN TS. [id number] 07:08:00 Test Item Value Reference Range Interpretation [...] % 20-55 (test code = 2590) PROTHROMBIN [id number] 07:05:00 Test Item Value Reference Range Interpretation Comments PROTIME ([facility]) (test code = 38.7 seconds 11.7-14.7 H 759) INR ([facility]) (test code = 370) 3.9 <=5.9 RECOMMENDED COUMADIN/WARFARIN INR THERAPY RANGESSTANDARD DOSE: 2.0 - 3.0 Includes: PROPHYLAXIS forvenous thrombosis, systemic embolization; TREATMENT for venous thrombosis and/or pulmonary embolus.HIGH RISK: Target INR is 2.5-3.5 for patients with mechanical heart valves.POCT-GLUCOSE [id number] 00:26:00 Test Item Value Reference Range Interpretation Comments POC-GLUCOSE METER 86 mg/dL 70-110 TESTED AT [place] [address] [facility] (test code = [facility] [address] 1538) POCT-GLUCOSE [id number] 00:26:00 Test Item Value Reference Range Interpretation Comments POC-GLUCOSE METER 137 mg/dL 70-110 H TESTED AT [place] [address] [facility] (test code = [facility] 1538) [address] POCT-GLUCOSE [id number] 16:07:00 Test Item Value Reference Range Interpretation Comments POC-GLUCOSE METER 72 mg/dL 70-110 TESTED AT [place] [address] ([facility]) (test code = [facility] [address] 1538) POCT-GLUCOSE [id number] 16:07:00 Test Item Value Reference Range Interpretation Comments POC-GLUCOSE METER 61 mg/dL 70-[address] [facility] 6720 (BEAKER) (test code = FOSTER Paul [facility] [address] 1538) POCT-GLUCOSE [id number] 11:27:00 Test Item Value Reference Range Interpretation Comments POC-GLUCOSE METER 82 mg/dL 70-[address] [facility] 6720 (BEAKER) (test code = FOSTER Paul [facility] [address] 1538) POCT-GLUCOSE [id number] 10:32:00 Test Item Value Reference Range Interpretation Comments POC-GLUCOSE METER 43 mg/dL 70-[address] [facility] 6720 (BEAKER) (test code = FOSTER Paul [facility] [address] 1538) BASIC METABOLIC [id number] 07:28:00 Test Item Value Reference Range Interpretation [...] S NOT APPLICABLE FOR DIALYSIS PATIEN TS. [id number] 07:24:00 Test Item Value Reference Range Interpretation Comments MAGNESIUM (BEAKER) 2.0 mg/dL 1.6-2.6 Specimen slightly (test code = 627) hemolyzed [id number] 07:24:00 Test Item Value Reference Range Interpretation Comments PHOSPHORUS ([facility]) 4.4 mg/dL 2.3-4.7 Specimen slightly (test code = 604) hemolyzed PROTHROMBIN [id number] 07:20:00 Test Item Value Reference Range Interpretation [...] = 413) RAD, CHEST, 1 VIEW, NON [id number] 04:22:00Reason for exam:->Post opShould this be performed [...] MDReport Verified Date/Time: 12/23/2018 04:22:43 Reading Location: [address] Body Reading Room POCT-GLUCOSE [id number] 03:01:00 Test Item Value Reference Range Interpretation Comments POC-GLUCOSE METER 85 mg/dL 70-[address] [facility] 6720 ([facility]) (test code = [facility] [address] 1538) BASIC METABOLIC [id number] 18:52:00 Test Item Value Reference Range Interpretation [...] H ([facility]) (test code = 413) ANAEROBIC [id number] 17:00:00 Test Item Value Reference Range Interpretation Comments CULTURE ([facility]) (test No anaerobes isolated code = 1095) RAD, CHEST, 1 VIEW, NON [id number] 07:44:00Reason for exam:->Post opShould this be performed [...] Arteaga Verified Date/Time: 12/22/2018 07:44:12 Reading Location: [facility] Radiology Reading Room PROTHROMBIN TIME/[id number] 04:31:00 Test Item Value Reference Range Interpretation Comments PROTIME ([facility]) (test code = 63.0 seconds 11.7-14.7 [...] mg/dL 70-110 H TESTED AT [place] [address] ([facility]) (test code = FOSTER Paul [facility] 1538) [address] POCT-GLUCOSE [id number] 13:22:00 Test Item Value Reference Range Interpretation Comments POC-GLUCOSE METER 100 mg/dL 70-110 TESTED AT [place] [address] ([facility]) (test code = MARIA GSC Humberto [facility] 1538) [address] RAD, CHEST, 1 VIEW, NON [id number] 08:01:00Reason for exam:->Post opShould this be performed [...] MDReport Verified Date/Time: 12/21/2018 08:01:46 Reading Location: [facility] C013V Neuro Reading Room PROTHROMBIN [id number] 05:30:00 Test Item Value Reference Range Interpretation Comments PROTIME ([facility]) (test code = 39.1 seconds 11.7-14.7 H 759) INR ([facility]) (test code = 370) 4.0 <=5.9 RECOMMENDED COUMADIN/WARFARIN INR THERAPY RANGESSTANDARD DOSE: 2.0 - 3.0 Includes: PROPHYLAXIS forvenous thrombosis, systemic embolization; TREATMENT for venous thrombosis and/or pulmonary embolus.HIGH RISK: Target INR is 2.5-3.5 for patients with mechanical heart valves.While on warfarin.POCT-GLUCOSE METER 2018-12-20 22:10:00 Test Item Value Reference Range Interpretation Comments POC-GLUCOSE METER 98 mg/dL 70-110 TESTED AT [place] [address] ([facility]) (test code = FOSTER Paul [facility] [address] 1538) POCT-GLUCOSE [id number] 17:40:00 Test Item Value Reference Range Interpretation Comments POC-GLUCOSE METER 91 mg/dL 70-110 TESTED AT [place] [address] ([facility]) (test code = FOSTER Paul [facility] [address] 1538) POCT-GLUCOSE [id number] 13:13:00 Test Item Value Reference Range Interpretation Comments POC-GLUCOSE METER 73 mg/dL 70-110 TESTED AT [place] [address] ([facility]) (test code = FOSTER Paul [facility] [address] 1538) SURGICALLY OBTAINED CULTURE + GRAM [id number] 08:41:00 Test Item Value Reference Range Interpretation Comments CULTURE ([facility]) (test No growth code = 1095) GRAM STAIN RESULT No White blood cells ([facility]) (test code = seen 1123) GRAM STAIN RESULT No organisms seen (AKER) (test code = 24995) RAD, CHEST, 1 VIEW, NON [id number] 08:20:00Reason for exam:->Post opShould this be performed [...] Verified Date/Time: 12/20/2018 08:20:58 Reading Location: [address] Neuro Reading Room BASIC METABOLIC [id number] 08:09:00 Test Item Value Reference Range Interpretation [...] S NOT APPLICABLE FOR DIALYSIS PATIEN TS. [id number] 08:00:00 Test Item Value Reference Range Interpretation Comments PHOSPHORUS ([facility]) (test code = 4.5 mg/dL 2.3-4.7 604) CALCIUM, [id number] 07:20:00 Test Item Value Reference Range Interpretation Comments CALCIUM IONIZED ([facility]) (test 1.04 mmol/L 1.12-1.27 L code = 698) PH, BLOOD ([facility]) (test code = 7.35 1810) PROTHROMBIN [id number] 07:04:00 Test Item Value Reference Range Interpretation [...] 0-0 ([facility]AKER) (test code = 413) POCT-GLUCOSE [id number] 22:00:00 Test Item Value Reference Range Interpretation Comments POC-GLUCOSE METER 188 mg/dL 70-[address] [facility] [address] ([facility]) (test code = [place] 1538) [address] TISSUE [id number] 18:15:00Surgical Pathology Report Case: [id number] Authorizing Provider: Moiz Vargas, Collected: 12/17/2018 0950 Ordering Location: [facility] Received: 12/17/2018 1129 PERIOPERATIVE SERVICES Pathologist: Kwan Perla MD Specimen: Pleural, Right, RIGHT PLEURAL PEEL PLEURA, RIGHT, DECORTICATION- MILD CHRONIC INFLAMMATION AND GRANULATION TISSUE- ORGANIZING BLOOD CLOTS- NO MALIGNANT CELLS IDENTIFIED Signing Pathologist Direct Phone Line: [phone] signed by Kwan Perla MD on 12/19/2018 at 6:15 PMCorrelation with microbiology cultures is recommended.[id number] effusion and other conditions classified elsewhereRight pleural peelThe specimen is received in a formalin-filled container labeled with the patient's information and labeled "right pleural peel" and consists of multiple fragments of porter-red, dusky, firm tissue measuring 6 x 5 x 0.4 cm in aggregate. Boat Washer sections are submitted in A1-A3. CG/ew Performed.POCT-GLUCOSE [id number] 17:11:00 Test Item Value Reference Range Interpretation Comments POC-GLUCOSE METER 126 mg/dL 70-[address] [facility] 6720 ([facility]) (test code = [place]ER Paul [facility] 1538) [address] POCT-GLUCOSE [id number] 12:57:00 Test Item Value Reference Range Interpretation Comments POC-GLUCOSE METER 143 mg/dL 70-[address] [facility] 6720 ([facility]) (test code = [place]ER Paul [facility] 1538) [address] POCT-GLUCOSE [id number] 07:27:00 Test Item Value Reference Range Interpretation Comments POC-GLUCOSE METER 141 mg/dL 70-110 H TESTED AT [place] [address] ([facility]) (test code = FOSTER Paul [facility] 1538) [address] CALCIUM, [id number] 06:29:00 Test Item Value Reference Range Interpretation Comments CALCIUM IONIZED ([facility]) (test 1.00 mmol/L 1.12-1.27 L code = 698) PH, BLOOD (BEAKER) (test code = 7.45 1810) RAD, CHEST, 1 VIEW, NON [id number] 04:54:00Reason for exam:->Post opShould this be performed [...] [place] Verified Date/Time: 2018 04:54:49 Reading Location: [place] [address]Y CT Body Reading Room BASIC METABOLIC [id number] 04:19:00 Test Item Value Reference Range Interpretation [...] S NOT APPLICABLE FOR DIALYSIS PATIEN TS. [id number] 04:16:00 Test Item Value Reference Range Interpretation Comments PHOSPHORUS (BEAKER) (test code = 3.4 mg/dL 2.3-4.7 604) PROTHROMBIN [id number] 04:06:00 Test Item Value Reference Range Interpretation [...] ([facility]) (test code = 413) POCT-GLUCOSE [id number] 22:11:00 Test Item Value Reference Range Interpretation Comments POC-GLUCOSE METER 149 mg/dL 70-110 H TESTED AT [place] [address] ([facility]) (test code = [facility] 1538) [address] POCT-GLUCOSE [id number] 17:52:00 Test Item Value Reference Range Interpretation Comments POC-GLUCOSE METER 122 mg/dL 70-110 H TESTED AT [place] [address] ([facility]) (test code = [facility] 1538) [address] POCT-GLUCOSE [id number] 14:26:00 Test Item Value Reference Range Interpretation Comments POC-GLUCOSE METER 98 mg/dL 70-110 TESTED AT [place] [address] ([facility]) (test code = [facility] [address] 1538) HEMOGLOBIN AND [id number] 12:47:00 Test Item Value Reference Range Interpretation Comments HEMOGLOBIN ([facility]) (test code = 9.2 GM/DL 13.7-17.5 L 410) HEMATOCRIT ([facility]) (test code = 28.3 % 40.1-51.0 L 411) POCT-GLUCOSE [id number] 09:38:00 Test Item Value Reference Range Interpretation Comments POC-GLUCOSE METER 73 mg/dL 70-110 TESTED AT [place] [address] ([facility]) (test code = [facility] [address] 1538) PROTEIN ELECTROPHORESIS, [id number] 09:21:00 Test Item Value Reference Range Interpretation [...] of chronic inflammation. No monoclonal bands detected. [id number] Amanda De Jesus MD (BEAKER) (test code = (electronic signature) 4338) PROTEIN TOTAL SERUM, 7.5 gm/dL 6.0-8.3 SPEP (BEAKER) (test code = 2660) RAD, CHEST, 1 VIEW, NON [id number] 06:47:00Reason for exam:->Post opShould this be performed [...] [place]ort Verified Date/Time: 12/18/2018 06:47:21 Reading Location: [facility] C013Y CT Body Reading Room [id number] 06:20:00 Test Item Value Reference Range Interpretation Comments MAGNESIUM (BEAKER) (test code = 2.2 mg/dL 1.6-2.6 627) CALCIUM, [id number] 06:00:00 Test Item Value Reference Range Interpretation Comments CALCIUM IONIZED (BEAKER) (test 1.09 mmol/L 1.12-1.27 L code = 698) PH, BLOOD (BEAKER) (test code = 7.34 1810) BASIC METABOLIC [id number] 05:07:00 Test Item Value Reference Range Interpretation [...] S NOT APPLICABLE FOR DIALYSIS PATIEN TS. [id number] 04:54:00 Test Item Value Reference Range Interpretation Comments PHOSPHORUS (BEAKER) (test code = 6.3 mg/dL 2.3-4.7 H 604) HEPATIC FUNCTION [id number] 04:54:00 Test Item Value Reference Range Interpretation [...] (test code = 23 U/L 6-55 347) [id number] 04:51:00 Test Item Value Reference Range Interpretation Comments PARTIAL THROMBOPLASTIN TIME 38.6 seconds 22.5-36.0 H (BEAKER) (test code = 760) PROTHROMBIN [id number] 04:50:00 Test Item Value Reference Range Interpretation Comments PROTIME (BEAKER) (test code = 16.0 seconds 11.7-14.7 H 759) INR (BEAKER) (test code = 370) 1.3 <=5.9 RECOMMENDED COUMADIN/WARFARIN INR THERAPY RANGESSTANDARD DOSE: 2.0 - 3.0 Includes: PROPHYLAXIS forvenous thrombosis, systemic embolization; TREATMENT for venous thrombosis and/or pulmonary embolus.HIGH RISK: Target INR is 2.5-3.5 for patients with mechanical heart valves.[id number] 04:50:00 Test Item Value Reference Range Interpretation Comments FIBRINOGEN LEVEL (BEAKER) (test 494 mg/dl 225-434 H code = 658) PLATELET [id number] 04:38:00 Test Item Value Reference Range Interpretation [...] WBC 0-0 (BEAKER) (test code = 413) [id number] 18:48:00 Test Item Value Reference Range Interpretation Comments MAGNESIUM (BEAKER) (test code = 2.4 mg/dL 1.6-2.6 627) POCT-GLUCOSE [id number] 18:42:00 Test Item Value Reference Range Interpretation Comments POC-GLUCOSE METER 121 mg/dL 70-[address] [facility] 6720 (BEAKER) (test code = [place] 1538) [address] HEMOGLOBIN AND [id number] 18:37:00 Test Item Value Reference Range Interpretation Comments HEMOGLOBIN (BEAKER) (test code = 10.0 GM/DL 13.7-17.5 L 410) HEMATOCRIT (BEAKER) (test code = 31.3 % 40.1-51.0 L 411) RAD, CHEST, 1 VIEW, NON [id number] 13:28:00Reason for exam:->post opShould this be performed [...] MDReport Verified Date/Time: 12/17/2018 13:28:23 Reading Location: [facility] Reading Room [facility] METABOLIC [id number] 13:03:00 Test Item Value Reference Range Interpretation [...] S NOT APPLICABLE FOR DIALYSIS PATIEN TS. [id number] 12:53:00 Test Item Value Reference Range Interpretation Comments PHOSPHORUS (BEAKER) (test code = 4.3 mg/dL 2.3-4.7 604) [id number] 12:53:00 Test Item Value Reference Range Interpretation Comments MAGNESIUM (BEAKER) (test code = 1.5 mg/dL 1.6-2.6 L 627) LACTIC ACID, [id number] 12:50:00 Test Item Value Reference Range Interpretation Comments LACTATE BLOOD ARTERIAL (2) 0.9 mmol/L 0.5-2.2 (BEAKER) (test code = 2874) CBC W/PLT COUNT & AUTO [id number] 12:47:00 Test Item Value Reference Range Interpretation [...] PERCENT (BEAKER) (test code = 2801) CALCIUM, [id number] 12:26:00 Test Item Value Reference Range Interpretation Comments CALCIUM IONIZED (BEAKER) (test 1.07 mmol/L 1.12-1.27 L code = 698) PH, BLOOD (BEAKER) (test code = 7.38 1810) BLOOD GAS, [id number] 12:26:00 Test Item Value Reference Range Interpretation [...] (test code = 1819) 40.0 % CALCIUM, [id number] 10:25:00 Test Item Value Reference Range Interpretation Comments CALCIUM IONIZED (BEAKER) (test 1.09 mmol/L 1.12-1.27 L code = 698) PH, BLOOD (BEAKER) (test code = 7.45 1810) BLOOD GAS, [id number] 10:22:00 Test Item Value Reference Range Interpretation [...] code = 1819) 96.0 % SODIUM NA-STAT [id number] 10:22:00 Test Item Value Reference Range Interpretation Comments SODIUM (BEAKER) (test code = 381) 133 meq/L 135-148 L GLUCOSE-STAT [id number] 10:22:00 Test Item Value Reference Range Interpretation Comments GLUCOSE RANDOM (BEAKER) (test code 116 mg/dL 70-110 H = 652) HGB/HCT (H&H) - STAT [id number] 10:22:00 Test Item Value Reference Range Interpretation Comments HEMOGLOBIN (BEAKER) (test code = 8.9 g/dL 13.0-16.8 L 410) HEMATOCRIT (BEAKER) (test code = 26.0 % 40.0-50.0 L 411) POTASSIUM-STAT [id number] 10:20:00 Test Item Value Reference Range Interpretation Comments POTASSIUM (BEAKER) (test code = 4.0 meq/L 3.6-5.5 379) HEMOGLOBIN [id number] 09:33:00 Test Item Value Reference Range Interpretation Comments HEMOGLOBIN A1C (BEAKER) (test code = 5.9 % 4.3-6.1 368) BLOOD GAS, [id number] 09:27:00 Test Item Value Reference Range Interpretation [...] code = 1819) 100.0 % SODIUM NA-STAT [id number] 09:27:00 Test Item Value Reference Range Interpretation Comments SODIUM (BEAKER) (test code = 381) 133 meq/L 135-148 L HGB/HCT (H&H) - STAT [id number] 09:27:00 Test Item Value Reference Range Interpretation Comments HEMOGLOBIN (BEAKER) (test code = 9.4 g/dL 13.0-16.8 L 410) HEMATOCRIT (BEAKER) (test code = 28.0 % 40.0-50.0 L 411) GLUCOSE-STAT [id number] 09:26:00 Test Item Value Reference Range Interpretation Comments GLUCOSE RANDOM (BEAKER) (test code = 97 mg/dL 70-110 652) POTASSIUM-STAT [id number] 09:26:00 Test Item Value Reference Range Interpretation Comments POTASSIUM (BEAKER) (test code = 3.9 meq/L 3.6-5.5 379) CALCIUM, [id number] 09:26:00 Test Item Value Reference Range Interpretation Comments CALCIUM IONIZED (BEAKER) (test 1.17 mmol/L 1.12-1.27 code = 698) PH, BLOOD (BEAKER) (test code = 7.44 1810) BLOOD GAS, [id number] 08:32:00 Test Item Value Reference Range Interpretation [...] code = 1819) 96.0 % SODIUM NA-STAT [id number] 08:32:00 Test Item Value Reference Range Interpretation Comments SODIUM (BEAKER) (test code = 381) 133 meq/L 135-148 L GLUCOSE-STAT [id number] 08:32:00 Test Item Value Reference Range Interpretation Comments GLUCOSE RANDOM (BEAKER) (test code 113 mg/dL 70-110 H = 652) HGB/HCT (H&H) - STAT [id number] 08:32:00 Test Item Value Reference Range Interpretation Comments HEMOGLOBIN (BEAKER) (test code = 9.9 g/dL 13.0-16.8 L 410) HEMATOCRIT (BEAKER) (test code = 29.0 % 40.0-50.0 L 411) CALCIUM, [id number] 08:31:00 Test Item Value Reference Range Interpretation Comments CALCIUM IONIZED (BEAKER) (test 1.05 mmol/L 1.12-1.27 L code = 698) PH, BLOOD (BEAKER) (test code = 7.49 1810) POTASSIUM-STAT [id number] 08:29:00 Test Item Value Reference Range Interpretation Comments POTASSIUM (BEAKER) (test code = 3.6 meq/L 3.6-5.5 379) POCT-GLUCOSE [id number] 06:20:00 Test Item Value Reference Range Interpretation Comments POC-GLUCOSE METER 99 mg/dL 70-[address] [facility] 6720 ([facility] [address] 1538) [id number] 05:05:00 Test Item Value Reference Range Interpretation Comments PARTIAL THROMBOPLASTIN TIME 75.6 seconds 22.5-36.0 H ([facility]) (test code = 760) LIPID [id number] 05:04:00 Test Item Value Reference Range Interpretation [...] Borderline 130-159 High 160-189 Very High >=190PROTHROMBIN [id number] 05:03:00 Test Item Value Reference Range Interpretation Comments PROTIME ([facility]) (test code = 15.4 seconds 11.7-14.7 H 759) INR ([facility]) (test code = 370) 1.2 <=5.9 RECOMMENDED COUMADIN/WARFARIN INR THERAPY RANGESSTANDARD DOSE: 2.0 - 3.0 Includes: PROPHYLAXIS forvenous thrombosis, systemic embolization; TREATMENT for venous thrombosis and/or pulmonary embolus.HIGH RISK: Target INR is 2.5-3.5 for patients with mechanical heart valves.POCT-GLUCOSE [id number] 21:17:00 Test Item Value Reference Range Interpretation Comments POC-GLUCOSE METER 223 mg/dL 70-[address] [facility] 6720 ([facility]) (test code = [facility] 1538) [address] COMPREHENSIVE METABOLIC [id number] 18:57:00 Test Item Value Reference Range Interpretation Comments TOTAL PROTEIN 7.8 gm/dL 6.0-8.3 ([facility]) (test code = 770) ALBUMIN (BEAKER) [...] S NOT APPLICABLE FOR DIALYSIS PATIEN TS. [id number] 18:46:00 Test Item Value Reference Range Interpretation Comments MAGNESIUM (BEAKER) (test code = 1.8 mg/dL 1.6-2.6 627) CBC W/PLT COUNT & AUTO [id number] 18:10:00 Test Item Value Reference Range Interpretation [...] 0-1 PERCENT (BEAKER) (test code = 2807) POCT-GLUCOSE [id number] 17:34:00 Test Item Value Reference Range Interpretation Comments POC-GLUCOSE METER 169 mg/dL 70-[address] [facility] 6720 (BEAKER) (test code = [place]ER [place] 1538) [address] HEPARIN [id number] 13:40:00 Test Item Value Reference Range Interpretation Comments HEPARIN ANTIBODY (BEAKER) (test code Negative Negative = 646) HEPARIN ANTIBODY OD ([facility]) (test 0.105 <0.400 code = 7419) 4T TOTAL SCORE ([facility]) (test code = 4 2188) Probability of HIT based on scoring system: 6-8 = High probability; 4-5 = intermediate probability;0-3 = low probabilityPOCT-GLUCOSE [id number] 12:51:00 Test Item Value Reference Range Interpretation Comments POC-GLUCOSE METER 66 mg/dL 70-110 L Notified Humberto Yeager MD/TESTED AT ([facility]) (test code = [place] [address] JOSE ANTONIO 1538) [facility] 7703 0 POCT-GLUCOSE [id number] 07:54:00 Test Item Value Reference Range Interpretation Comments POC-GLUCOSE METER 75 mg/dL 70-110 TESTED AT [place] [address] ([facility]) (test code = [facility] Humberto [facility] [address] 1538) [id number] 04:21:00 Test Item Value Reference Range Interpretation [...] is 2.5-3.5 for patients with mechanical heart valves.[id number] 04:20:00 Test Item Value Reference Range Interpretation Comments FIBRINOGEN LEVEL ([facility]) (test 525 mg/dl 225-434 H code = 658) POCT-GLUCOSE [id number] 21:25:00 Test Item Value Reference Range Interpretation Comments POC-GLUCOSE METER 129 mg/dL 70-110 H TESTED AT [place] [address] ([facility]) (test code = FOSTER Paul [facility] 1538) [address] [id number] 18:23:00 Test Item Value Reference Range Interpretation Comments PARTIAL THROMBOPLASTIN TIME 72.0 seconds 22.5-36.0 H ([facility]) (test code = 760) POCT-GLUCOSE [id number] 16:20:00 Test Item Value Reference Range Interpretation Comments POC-GLUCOSE METER 142 mg/dL 70-110 H TESTED AT [place] [address] ([facility]) (test code = F[place]ER Paul [facility] 1538) [address] POCT-GLUCOSE [id number] 13:05:00 Test Item Value Reference Range Interpretation Comments POC-GLUCOSE METER 86 mg/dL 70-110 TESTED AT [place] [address] ([facility]) (test code = [facility] Humberto [facility] [address] 1538) [id number] 11:19:00 Test Item Value Reference Range Interpretation Comments PARTIAL THROMBOPLASTIN TIME 72.3 seconds 22.5-36.0 H ([facility]) (test code = 760) POCT-GLUCOSE [id number] 07:56:00 Test Item Value Reference Range Interpretation Comments POC-GLUCOSE METER 87 mg/dL 70-110 TESTED AT [place] [address] ([facility]) (test code = [facility] Humberto [facility] [address] 1538) [id number] 03:13:00 Test Item Value Reference Range Interpretation Comments PARTIAL THROMBOPLASTIN TIME 97.1 seconds 22.5-36.0 H ([facility]) (test code = 760) PROTHROMBIN [id number] 03:11:00 Test Item Value Reference Range Interpretation [...] 775) RED BLOOD CELL COUNT ([facility]) 3.13 M/ L 4.63-6.08 L (test code = 761) HEMOGLOBIN ([facility]) (test code = 10.6 GM/DL 13.7-17.5 [...] WBC 0-0 (test code = 413) POCT-GLUCOSE [id number] 21:26:00 Test Item Value Reference Range Interpretation Comments POC-GLUCOSE METER 121 mg/dL 70-110 H TESTED AT [place] [address] ([facility]) (test code = F[place]ER Paul [facility] 1538) [address] [id number] 19:05:00 Test Item Value Reference Range Interpretation Comments PARTIAL THROMBOPLASTIN TIME 64.0 seconds 22.5-36.0 H ([facility]) (test code = 760) POCT-GLUCOSE [id number] 17:24:00 Test Item Value Reference Range Interpretation Comments POC-GLUCOSE METER 131 mg/dL 70-110 H TESTED AT [place] [address] ([facility]) (test code = [place] 1538) [address] [id number] 13:32:00 Test Item Value Reference Range Interpretation Comments PARTIAL THROMBOPLASTIN TIME 81.4 seconds 22.5-36.0 H ([facility]) (test code = 760) POCT-GLUCOSE [id number] 12:32:00 Test Item Value Reference Range Interpretation Comments POC-GLUCOSE METER 102 mg/dL 70-110 TESTED AT [place] [address] ([facility]) (test code = [place]ER Paul [place] 1538) [address] POCT-GLUCOSE [id number] 07:07:00 Test Item Value Reference Range Interpretation Comments POC-GLUCOSE METER 113 mg/dL 70-[address] [facility] 67 ([facility] (test code = [facility] Humberto [facility] 1538) [address] [id number] 05:47:00 Test Item Value Reference Range Interpretation Comments PARTIAL THROMBOPLASTIN TIME 91.8 seconds 22.5-36.0 H (BEAKER) (test code = 760) POCT-GLUCOSE [id number] 21:27:00 Test Item Value Reference Range Interpretation Comments POC-GLUCOSE METER 90 mg/dL 70-110 TESTED AT [place] [address] ([facility]) (test code = [facility] [address] 1538) POCT-GLUCOSE [id number] 17:46:00 Test Item Value Reference Range Interpretation Comments POC-GLUCOSE METER 175 mg/dL 70-110 H TESTED AT [place] [address] ([facility]) (test code = [facility] 1538) [address] POCT-GLUCOSE [id number] 17:30:00 Test Item Value Reference Range Interpretation Comments POC-GLUCOSE METER 84 mg/dL 70-110 TESTED AT [place] [address] [facility] (test code = [facility] [address] 1538) [id number] 13:20:00 Test Item Value Reference Range Interpretation Comments PARTIAL THROMBOPLASTIN TIME 68.4 seconds 22.5-36.0 H (BEAKER) (test code = 760) BASIC METABOLIC [id number] 10:36:00 Test Item Value Reference Range Interpretation [...] mg/dL 8.4-10.2 (test code = 697) EGFR ([facility]) (test 11 mL/min/1.73 ESTIMA JAYLA GFR IS code = 1092) sq m NOT ACCURATE CREATININE CLEARANCE IN PREDICTING GLOMERULAR FILTRATION RATE . ESTIMATED GFR I S NOT APPLICABLE FOR DIALYSIS PATIEN TS. POCT-GLUCOSE [id number] 07:43:00 Test Item Value Reference Range Interpretation Comments POC-GLUCOSE METER 84 mg/dL 70-[address] [facility] 6720 ([facility]) (test code = [place] [address] 1538) [id number] 06:52:00 Test Item Value Reference Range Interpretation Comments PARTIAL THROMBOPLASTIN TIME 76.5 seconds 22.5-36.0 H ([facility]) (test code = 760) PROTHROMBIN [id number] 06:51:00 Test Item Value Reference Range Interpretation [...] 0-1 PERCENT (BEAKER) (test code = 2801) [id number] 00:11:00 Test Item Value Reference Range Interpretation Comments PARTIAL THROMBOPLASTIN TIME 59.7 seconds 22.5-36.0 H (BEAKER) (test code = 760) POCT-GLUCOSE [id number] 21:33:00 Test Item Value Reference Range Interpretation Comments POC-GLUCOSE METER 113 mg/dL 70-[address] [facility] 67 ([facility]) (test code = [place] 1538) [address] POCT-GLUCOSE [id number] 18:08:00 Test Item Value Reference Range Interpretation Comments POC-GLUCOSE METER 128 mg/dL 70-[address] [facility] 6720 ([facility]) (test code = [place] 1538) [address] [id number] 16:51:00 Test Item Value Reference Range Interpretation Comments PARTIAL THROMBOPLASTIN TIME 71.6 seconds 22.5-36.0 H (BEAKER) (test code = 760) POCT-GLUCOSE [id number] 12:39:00 Test Item Value Reference Range Interpretation Comments POC-GLUCOSE METER 124 mg/dL 70-[address] [facility] 6720 (BEAKER) (test code = [facility] 1538) [address] [id number] 09:07:00 Test Item Value Reference Range Interpretation Comments PARTIAL THROMBOPLASTIN TIME 96.6 seconds 22.5-36.0 H (BEAKER) (test code = 760) POCT-GLUCOSE [id number] 07:48:00 Test Item Value Reference Range Interpretation Comments POC-GLUCOSE METER 105 mg/dL 70-[address] [facility] 6720 (BEAKER) (test code = [facility] 1538) [address] BASIC METABOLIC [id number] 01:54:00 Test Item Value Reference Range Interpretation [...] S NOT APPLICABLE FOR DIALYSIS PATIEN TS. [id number] 01:37:00 Test Item Value Reference Range Interpretation Comments PARTIAL THROMBOPLASTIN TIME 53.4 seconds 22.5-36.0 H (BEAKER) (test code = 760) PROTHROMBIN [id number] 01:36:00 Test Item Value Reference Range Interpretation [...] PERCENT (BEAKER) (test code = 2801) POCT-GLUCOSE [id number] 21:57:00 Test Item Value Reference Range Interpretation Comments POC-GLUCOSE METER 165 mg/dL 70-110 H TESTED AT [place] [address] ([facility]) (test code = FOSTER Paul [facility] 1538) [address] [id number] 18:46:00 Test Item Value Reference Range Interpretation Comments PARTIAL THROMBOPLASTIN TIME 39.0 seconds 22.5-36.0 H ([facility]) (test code = 760) POCT-GLUCOSE [id number] 17:51:00 Test Item Value Reference Range Interpretation Comments POC-GLUCOSE METER 157 mg/dL 70-110 H TESTED AT [place] [address] ([facility]) (test code = FOSTER Paul [facility] 1538) [address] POCT-GLUCOSE [id number] 17:09:00 Test Item Value Reference Range Interpretation Comments POC-GLUCOSE METER 162 mg/dL 70-110 H TESTED AT [place] [address] ([facility]) (test code = FOSTER Paul [facility] 1538) [address] [id number] 16:07:00 Test Item Value Reference Range Interpretation Comments PARTIAL THROMBOPLASTIN TIME 117.0 seconds 22.5-36.0 H ([facility]) (test code = 760) POCT-GLUCOSE [id number] 13:28:00 Test Item Value Reference Range Interpretation Comments POC-GLUCOSE METER 88 mg/dL 70-110 TESTED AT [place] [address] ([facility]) (test code = [place] [address] 1538) [id number] 09:17:00 Test Item Value Reference Range Interpretation Comments PARTIAL THROMBOPLASTIN TIME 71.7 seconds 22.5-36.0 H ([facility]) (test code = 760) POCT-GLUCOSE [id number] 08:07:00 Test Item Value Reference Range Interpretation Comments POC-GLUCOSE METER 137 mg/dL 70-[address] [facility] 6720 ([facility]) (test code = F[place]ER Paul [facility] 1538) [address] [id number] 02:27:00 Test Item Value Reference Range Interpretation Comments PARTIAL THROMBOPLASTIN TIME 62.4 seconds 22.5-36.0 H ([facility]) (test code = 760) PROTHROMBIN [id number] 02:26:00 Test Item Value Reference Range Interpretation Comments PROTIME ([facility]) (test code = 20.0 seconds 11.7-14.7 H 759) INR ([facility]) (test code = 370) 1.7 <=5.9 RECOMMENDED COUMADIN/WARFARIN INR THERAPY RANGESSTANDARD DOSE: 2.0 - 3.0 Includes: PROPHYLAXIS forvenous thrombosis, systemic embolization; TREATMENT for venous thrombosis and/or pulmonary embolus.HIGH RISK: Target INR is 2.5-3.5 for patients with mechanical heart valves.BASIC METABOLIC [id number] 02:02:00 Test Item Value Reference Range Interpretation [...] PATIEN TS. CBC W/PLT COUNT & AUTO [id number] 01:42:00 Test Item Value Reference Range Interpretation [...] ([facility]) (test code = 2801) POCT-GLUCOSE [id number] 21:12:00 Test Item Value Reference Range Interpretation Comments POC-GLUCOSE METER 199 mg/dL 70-110 H TESTED AT [place] [address] ([facility]) (test code = [facility] Humberto [facility] 1538) [id number] POCT-GLUCOSE [id number] 17:39:00 Test Item Value Reference Range Interpretation Comments POC-GLUCOSE METER 145 mg/dL 70-110 H TESTED AT [place] [address] ([facility]) (test code = [facility] 1538) [id number] 17:33:00 Test Item Value Reference Range Interpretation Comments PARTIAL THROMBOPLASTIN TIME 47.3 seconds 22.5-36.0 H ([facility]) (test code = 760) POCT-GLUCOSE [id number] 12:53:00 Test Item Value Reference Range Interpretation Comments POC-GLUCOSE METER 203 mg/dL 70-110 H TESTED AT [place] [address] ([facility]) (test code = [facility] 1538) [address] POCT-GLUCOSE [id number] 08:28:00 Test Item Value Reference Range Interpretation Comments POC-GLUCOSE METER 98 mg/dL 70-110 TESTED AT [place] [address] ([facility]) (test code = [facility] [address] 1538) BASIC METABOLIC [id number] 05:52:00 Test Item Value Reference Range Interpretation [...] NOT APPLICABLE FOR DIALYSIS PATIEN TS. PROTHROMBIN [id number] 05:51:00 Test Item Value Reference Range Interpretation [...] PERCENT (BEAKER) (test code = 2801) POCT-GLUCOSE [id number] 20:54:00 Test Item Value Reference Range Interpretation Comments POC-GLUCOSE METER 126 mg/dL 70-110 H TESTED AT [place] [address] ([facility]) [facility] 1538[facility] [address] POCT-GLUCOSE [id number] 18:47:00 Test Item Value Reference Range Interpretation Comments POC-GLUCOSE METER 70 mg/dL 70-110 TESTED AT [place] [address] ([facility]) (test code = [facility] [address] 1538) POCT-GLUCOSE [id number] 13:25:00 Test Item Value Reference Range Interpretation Comments POC-GLUCOSE METER 120 mg/dL 70-110 H TESTED AT [place] [address] ([facility]) (test code = [facility] Humberto [facility] 1538) [address] POCT-GLUCOSE [id number] 09:32:00 Test Item Value Reference Range Interpretation Comments POC-GLUCOSE METER 104 mg/dL 70-[address] [facility] 6720 (BEAKER) (test code = [place] 1538) [address] BASIC METABOLIC [id number] 05:59:00 Test Item Value Reference Range Interpretation [...] NOT APPLICABLE FOR DIALYSIS PATIEN TS. PROTHROMBIN [id number] 05:20:00 Test Item Value Reference Range Interpretation [...] PERCENT (BEAKER) (test code = 2801) POCT-GLUCOSE [id number] 21:14:00 Test Item Value Reference Range Interpretation Comments POC-GLUCOSE METER 200 mg/dL 70-[address] [facility] 6720 (BEAKER) (test code = [place] 1538) [address] POCT-GLUCOSE [id number] 17:34:00 Test Item Value Reference Range Interpretation Comments POC-GLUCOSE METER 143 mg/dL 70-[address] [facility] 67 (BEAKER) (test code = [place] [facility] 1538) [address] POCT-GLUCOSE [id number] 12:04:00 Test Item Value Reference Range Interpretation Comments POC-GLUCOSE METER 160 mg/dL 70-110 H TESTED AT [place] [address] (BEAKER) (test code = [place] [facility] 1538) [address]695 POCT-GLUCOSE [id number] 08:08:00 Test Item Value Reference Range Interpretation Comments POC-GLUCOSE METER 154 mg/dL 70-110 H TESTED AT [place] [address] (BEAKER) (test code = [place] [facility] 1538) [address] BASIC METABOLIC [id number] 06:33:00 Test Item Value Reference Range Interpretation [...] S NOT APPLICABLE FOR DIALYSIS PATIEN TS. [id number] 06:01:00 Test Item Value Reference Range Interpretation Comments PARTIAL THROMBOPLASTIN TIME 117.2 seconds 22.5-36.0 H (BEAKER) (test code = 760) PROTHROMBIN TIME/[id number] 05:56:00 Test Item Value Reference Range Interpretation [...] ABSOLUTE COUNT 5.57 K/ L 1.78-5.38 H ([facility]) (test code = 670) LYMPHOCYTES ABSOLUTE [...] ([facility]) (test code = 2801) POCT-GLUCOSE [id number] 21:37:00 Test Item Value Reference Range Interpretation Comments POC-GLUCOSE METER 121 mg/dL 70-110 H TESTED AT [place] [address] ([facility]) (test code = [place] [facility] 1538) [address] POCT-GLUCOSE [id number] 19:01:00 Test Item Value Reference Range Interpretation Comments POC-GLUCOSE METER 191 mg/dL 70-110 H TESTED AT [place] [address] ([facility]) (test code = [facility] Humberto [facility] 1538) [address] [id number] 18:31:00 Test Item Value Reference Range Interpretation Comments PARTIAL THROMBOPLASTIN TIME 86.2 seconds 22.5-36.0 H ([facility]) (test code = 760) POCT-GLUCOSE [id number] 13:05:00 Test Item Value Reference Range Interpretation Comments POC-GLUCOSE METER 130 mg/dL 70-110 H TESTED AT [place] [address] ([facility]) (test code = [place] [address]) [address] RAD, CHEST, 1 VIEW, NON [id number] 12:22:00Reason for exam:->pleural effusionsShould this be performed [...] MARQUEZeport Verified Date/Time: 12/07/2018 12:22:50 Reading Location: [address] Neuro Reading Room [id number] 11:39:00 Test Item Value Reference Range Interpretation Comments PARTIAL THROMBOPLASTIN TIME 100.1 seconds 22.5-36.0 H (BEAKER) (test code = 760) BODY FLUID CULTURE + GRAM [id number] 10:13:00 Test Item Value Reference Range Interpretation Comments CULTURE (BEAKER) (test No growth code = 1095) GRAM STAIN RESULT <1+ White blood cells (BEAKER) (test code = seen 1123) GRAM STAIN RESULT No organisms seen (BEAKER) (test code = 17144) POCT-GLUCOSE [id number] 08:51:00 Test Item Value Reference Range Interpretation Comments POC-GLUCOSE METER 90 mg/dL 70-[address] [facility] 6720 (BEAKER) (test code = [place] [facility] [address] 1538) BASIC METABOLIC [id number] 07:31:00 Test Item Value Reference Range Interpretation [...] S NOT APPLICABLE FOR DIALYSIS PATIEN TS. [id number] 05:21:00 Test Item Value Reference Range Interpretation Comments PARTIAL THROMBOPLASTIN TIME 104.0 seconds 22.5-36.0 H (BEAKER) (test code = 760) PROTHROMBIN [id number] 04:50:00 Test Item Value Reference Range Interpretation [...] 0-1 PERCENT (BEAKER) (test code = 2801) [id number] 20:33:00 Test Item Value Reference Range Interpretation Comments PARTIAL THROMBOPLASTIN TIME 87.6 seconds 22.5-36.0 H (BEAKER) (test code = 760) POCT-GLUCOSE [id number] 19:30:00 Test Item Value Reference Range Interpretation Comments POC-GLUCOSE METER 112 mg/dL 70-110 H TESTED AT [place] [address] (BEAKER) (test code = [place] [facility] 1538) [address] [id number] 13:55:00 Test Item Value Reference Range Interpretation Comments PARTIAL THROMBOPLASTIN TIME 85.9 seconds 22.5-36.0 H (BEAKER) (test code = 760) POCT-GLUCOSE [id number] 09:12:00 Test Item Value Reference Range Interpretation Comments POC-GLUCOSE METER 112 mg/dL 70-110 H [facility] AT [place] [address] [facility] (test code = [facility] Humberto [facility] 1538) [address] BASIC METABOLIC [id number] 08:53:00 Test Item Value Reference Range Interpretation [...] S NOT APPLICABLE FOR DIALYSIS PATIEN TS. [id number] 06:04:00 Test Item Value Reference Range Interpretation Comments PARTIAL THROMBOPLASTIN TIME 105.5 seconds 22.5-36.0 H (BEAKER) (test code = 760) PROTHROMBIN TIME/[id number] 05:44:00 Test Item Value Reference Range Interpretation [...] (test code = 2801) CT, CHEST, WITHOUT [id number] 03:17:00FINAL REPORT EXAM: CT of the chest, [...] left pleural effusion with associated compressive atelectasis. Kkchd-zf-rggkebxn loculated right pleural effusion with pleural thickening [...] Taylor Verified Date/Time: 12/06/2018 03:17:03 Reading Location: [facility] B1 C013Y CT Body Reading Room POCT-GLUCOSE [id number] 21:22:00 Test Item Value Reference Range Interpretation Comments POC-GLUCOSE METER 171 mg/dL 70-110 H TESTED AT [place] [address] ([facility]) (test code = [place] [facility] 1538) [address] POCT-GLUCOSE [id number] 17:58:00 Test Item Value Reference Range Interpretation Comments POC-GLUCOSE METER 128 mg/dL 70-110 H TESTED AT [place] [address] ([facility]) (test code = [facility] GOSMAN H[place] [facility] 1538) [address]87 POCT-GLUCOSE [id number] 13:24:00 Test Item Value Reference Range Interpretation Comments POC-GLUCOSE METER 129 mg/dL 70-110 H TESTED AT [facility] 6720 (BEAKER) (test code = [place] 1538) [address] LACTATE DEHYDROGENASE (LDH)2018-12-05 13:14:00 Test Item Value Reference Range Interpretation Comments LACTATE DEHYDROGENASE (BEAKER) (test 291 U/L 125-220 H code = 635) [id number] 13:10:00 Test Item Value Reference Range Interpretation Comments PARTIAL THROMBOPLASTIN TIME 91.7 seconds 22.5-36.0 H (BEAKER) (test code = 760) POCT-GLUCOSE [id number] 08:19:00 Test Item Value Reference Range Interpretation Comments POC-GLUCOSE METER 106 mg/dL 70-[address] [facility] 6720 (BEAKER) (test code = [place] 1538) [address] BASIC METABOLIC [id number] 07:05:00 Test Item Value Reference Range Interpretation [...] S NOT APPLICABLE FOR DIALYSIS PATIEN TS. [id number] 06:32:00 Test Item Value Reference Range Interpretation [...] 2.5-3.5 for patients with mechanical heart valves.PROTHROMBIN TIME/[id number] 06:30:00 Test Item Value Reference Range Interpretation [...] 0-1 PERCENT (BEAKER) (test code = 2801) [id number] 00:40:00 Test Item Value Reference Range Interpretation Comments PARTIAL THROMBOPLASTIN TIME 63.1 seconds 22.5-36.0 H (BEAKER) (test code = 760) POCT-GLUCOSE [id number] 00:12:00 Test Item Value Reference Range Interpretation Comments POC-GLUCOSE METER 124 mg/dL 70-[address] [facility] 6720 (BEAKER) (test code = MAR[facility] GOSMAN Paul [facility] 1538) [address] HEPATITIS B SURFACE [id number] 22:54:00 Test Item Value Reference Range Interpretation Comments HEPATITIS B SURFACE ANTIGEN (2) Nonreactive Nonreactive (BEAKER) (test code = 2585) For chronic HD patients, draw HBsAg with each admission then every 30 days.BODY FLUID CELL COUNT WITH [id number] 20:34:00 Test Item Value Reference Range Interpretation Comments APPEARANCE FLUID (BEAKER) (test Cloudy Clear A code = 510) COLOR FLUID (BEAKER) (test code Brown Colorless, Straw A = 511) RBC FLUID (BEAKER) (test code = 26559 /cu mm <=1 H 513) ADJUSTED WBC [...] code = 2873) LACTATE DEHYDROGENASE (LDH), BODY [id number] 19:43:00 Test Item Value Reference Range Interpretation [...] local 1% lidocaine anesthesia was administered.A 4 Turkmen catheter was advanced into the largest pocket of the septated pleural effusion and 300 ccof bloody fluid was removed. The catheter was removed without immediate complication. Samples were sent for analysis. IMPRESSION:Uncomplicated ultrasound-guided right thoracentesis with 300 cc fluid removed. Signed: Raimundo Kim MDReport Verified Date/Time: 12/04/2018 18:00:50 Reading Location: [address] Ultrasound Reading Room RAD, CHEST, 1 VIEW, NON [id number] 17:23:00Reason for exam:->s/p right thoracentesisShould this be [...] MDRepdamion Verified Date/Time: 12/04/2018 17:23:06 Reading Location: [facility] Reading Room C. DIFFICILE GDH [id number] 10:01:00 Test Item Value Reference Range Interpretation Comments CDT TOXIN (test code Negative Negative = [id number]) CDT GDH ANTIGEN Positive Negative A C. difficile present but (test code = toxin not detec jayla. [id number]) Indicates colon ization with non-toxige ron strain or level of tox in below detectable leve ls. No need for enteri c isolation. Gary atment is rarely needed ( only when strong clinical suspicion for Clostridium difficile infection) Testing performed by [employer] Rapid Cassette Assay. For GDH, published sensitivity of the assay is 98.7% compared to cytotoxicity testing. For Toxin AB, published sensitivity is 87.8% and specificity 99.4% compared to cytotoxicity testing.Verification of kit performance was done by the [facility] Microbiology Lab prior to clinical use.[id number] 09:39:00 Test Item Value Reference Range Interpretation Comments PARTIAL THROMBOPLASTIN TIME 79.4 seconds 22.5-36.0 H (BEAKER) (test code = 760) OCCULT BLOOD, [id number] 05:59:00 Test Item Value Reference Range Interpretation Comments FECAL OCCULT BLOOD (BEAKER) (test Negative Negative code = 618) BASIC METABOLIC [id number] 02:50:00 Test Item Value Reference Range Interpretation [...] S NOT APPLICABLE FOR DIALYSIS PATIEN TS. [id number] 02:50:00 Test Item Value Reference Range Interpretation Comments PARTIAL THROMBOPLASTIN TIME 35.3 seconds 22.5-36.0 (BEAKER) (test code = 760) Prior to initiating heparinPROTHROMBIN TIME/[id number] 02:49:00 Test Item Value Reference Range Interpretation [...] acute neurological disease, and persistent tachyarrhythmia.HEPATIC FUNCTION [id number] 02:43:00 Test Item Value Reference Range Interpretation [...] 6-55 347) CBC W/PLT COUNT & AUTO [id number] 02:21:00 Test Item Value Reference Range Interpretation [...] PERCENT (BEAKER) (test code = 2801) POCT-GLUCOSE [id number] 21:22:00 Test Item Value Reference Range Interpretation Comments POC-GLUCOSE METER 192 mg/dL 70-[address] [facility] 6720 ([facility]) (test code = [facility] 1538) [address] TROPONIN [id number] 17:09:00 Test Item Value Reference Range Interpretation Comments TROPONIN I ([facility]) (test code = 0.10 ng/mL 0.00-0.03 [...] and persistent tachyarrhythmia.RAD, CHEST, 1 VIEW, NON [id number] 15:36:00Reason for exam:->SHORTNESS OF BREATHShould this be performed at the bedside?->YesFINAL REPORT AP chest HISTORY: Shortness of breath. COMPARISON: 11/03/2017. IMPRESSION: Cardiomegaly. Mild interstitial edema. Right effusion and adjacent atelectasis. No pneumothorax. Signed: Mandy Chairez MDReport Verified Date/Time: 12/03/2018 15:36:19 Reading Location: [address] Radiology Reading Room TROPONIToy [id number] 14:48:00 Test Item Value Reference Range Interpretation [...] (BEAKER) (test code = 700) BASIC METABOLIC [id number] 14:40:00 Test Item Value Reference Range Interpretation [...] S NOT APPLICABLE FOR DIALYSIS PATIEN TS. [id number] 14:34:00 Test Item Value Reference Range Interpretation [...] (test code = 2801) RAD, CHEST, 2 [id number] 15:24:00Reason for Exam:->chronic Diastolic heart FailureFINAL REPORT [...] MDReport Verified Date/Time: 11/03/2018 15:24:42 Reading Location: [address] Radiology Reading Room MISCELLANEOUS LAB [id number] 08:22:00 Test Item Value Reference Range Interpretation Comments SCAN RESULT (test code = 1731482) PROTHROMBIN [id number] 08:37:00 Test Item Value Reference Range Interpretation Comments PROTIME (BEAKER) (test code = 24.8 seconds 11.7-14.7 H 759) INR (BEAKER) (test code = 370) 2.2 <=5.9 RECOMMENDED COUMADIN/WARFARIN INR THERAPY RANGESSTANDARD DOSE: 2.0 - 3.0 Includes: PROPHYLAXIS forvenous thrombosis, systemic embolization; TREATMENT for venous thrombosis and/or pulmonary embolus.HIGH RISK: Target INR is 2.5-3.5 for patients with mechanical heart valves.POCT-GLUCOSE [id number] 08:10:00 Test Item Value Reference Range Interpretation Comments POC-GLUCOSE METER 89 mg/dL 70-[address] [facility] 6720 (BEAKER) (test code = [place] [facility] [address] 1538) BASIC METABOLIC [id number] 06:29:00 Test Item Value Reference Range Interpretation [...] S NOT APPLICABLE FOR DIALYSIS PATIEN TS. [id number] 06:28:00 Test Item Value Reference Range Interpretation Comments MAGNESIUM (BEAKER) (test code = 1.8 mg/dL 1.6-2.6 627) [id number] 06:14:00 Test Item Value Reference Range Interpretation Comments PARTIAL THROMBOPLASTIN TIME 64.7 seconds 22.5-36.0 H (BEAKER) (test code = 760) CBC W/PLT COUNT & AUTO [id number] 05:58:00 Test Item Value Reference Range Interpretation [...] ([facility]) (test code = 2801) POCT-GLUCOSE [id number] 21:14:00 Test Item Value Reference Range Interpretation Comments POC-GLUCOSE METER 135 mg/dL 70-110 H TESTED AT [place] [address] ([facility]) (test code = [place] [facility] 1538) [address] [id number] 19:36:00 Test Item Value Reference Range Interpretation Comments PARTIAL THROMBOPLASTIN TIME 88.6 seconds 22.5-36.0 H ([facility]) (test code = 760) POCT-GLUCOSE [id number] 18:27:00 Test Item Value Reference Range Interpretation Comments POC-GLUCOSE METER 88 mg/dL 70-110 TESTED AT [place] [address] ([facility]) (test code = [place] [facility] [address] 1538) POCT-GLUCOSE [id number] 12:05:00 Test Item Value Reference Range Interpretation Comments POC-GLUCOSE METER 92 mg/dL 70-110 TESTED AT [place] [address] ([facility]) (test code = [place] Paul [facility] [address] 1538) [id number] 11:46:00 Test Item Value Reference Range Interpretation Comments PARTIAL THROMBOPLASTIN TIME 74.3 seconds 22.5-36.0 H ([facility]) (test code = 760) POCT-GLUCOSE [id number] 10:36:00 Test Item Value Reference Range Interpretation Comments POC-GLUCOSE METER 101 mg/dL 70-110 TESTED AT [place] [address] ([facility]) (test code = [place] [facility] 1538) [address] POCT-GLUCOSE [id number] 07:10:00 Test Item Value Reference Range Interpretation Comments POC-GLUCOSE METER 92 mg/dL 70-110 TESTED AT [place] [address] ([facility]) (test code = [facility] Humberto [facility] [address] 1538) PROTHROMBIN [id number] 01:41:00 Test Item Value Reference Range Interpretation Comments PROTIME ([facility]) (test code = 22.8 seconds 11.7-14.7 H 759) INR ([facility]) (test code = 370) 2.0 <=5.9 RECOMMENDED COUMADIN/WARFARIN INR THERAPY RANGESSTANDARD DOSE: 2.0 - 3.0 Includes: PROPHYLAXIS forvenous thrombosis, systemic embolization; TREATMENT for venous thrombosis and/or pulmonary embolus.HIGH RISK: Target INR is 2.5-3.5 for patients with mechanical heart valves.While on warfarin.[id number] 01:41:00 Test Item Value Reference Range Interpretation Comments PARTIAL THROMBOPLASTIN TIME 52.3 seconds 22.5-36.0 H (BEAKER) (test code = 760) While on warfarin.BASIC METABOLIC [id number] 01:37:00 Test Item Value Reference Range Interpretation [...] S NOT APPLICABLE FOR DIALYSIS PATIEN TS. [id number] 01:32:00 Test Item Value Reference Range Interpretation Comments MAGNESIUM (BEAKER) (test code = 1.8 mg/dL 1.6-2.6 627) CBC W/PLT COUNT & AUTO [id number] 01:18:00 Test Item Value Reference Range Interpretation [...] 0-1 PERCENT (BEAKER) (test code = 2801) [id number] 23:23:00 Test Item Value Reference Range Interpretation Comments PARTIAL THROMBOPLASTIN TIME 125.2 seconds 22.5-36.0 H (BEAKER) (test code = 760) POCT-GLUCOSE [id number] 21:19:00 Test Item Value Reference Range Interpretation Comments POC-GLUCOSE METER 165 mg/dL 70-[address] [facility] 6720 ([facility]) (test code = [place] [facility] 1538) [address] POCT-GLUCOSE [id number] 18:34:00 Test Item Value Reference Range Interpretation Comments POC-GLUCOSE METER 92 mg/dL 70-[address] [facility] 67 ([facility]) (test code = [place] [facility] [address] 1538) [id number] 17:17:00 Test Item Value Reference Range Interpretation Comments PARTIAL THROMBOPLASTIN TIME 75.2 seconds 22.5-36.0 H ([facility]) (test code = 760) POCT-GLUCOSE [id number] 12:48:00 Test Item Value Reference Range Interpretation Comments POC-GLUCOSE METER 105 mg/dL 70-110 TESTED AT [place] [address] ([facility]) (test code = [place] [facility] 1538) [address] RAD, CHEST, 1 VIEW, NON [id number] 11:00:00Reason for exam:->eval right effusionShould this be performed at the bedside?->YesFINAL REPORT Comparison: 08/15/2018 TECHNIQUE: Single view of the chest FINDINGS: Small to moderate right pleural effusion is stable. Small left pleural effusion may be slightly increased. Vascular congestion seen. No other significant change. Signed: Kyle Rome MDReport Verified Date/Time: 08/18/2018 11:00:36 Reading Location: [facility] Radiology Reading Room Electronicallysigned by: KYLE ROME M.D. on 08/18/2018 11:00 [id number] 09:48:00 Test Item Value Reference Range Interpretation Comments PARTIAL THROMBOPLASTIN TIME 48.8 seconds 22.5-36.0 H ([facility]) (test code = 760) POCT-GLUCOSE [id number] 07:37:00 Test Item Value Reference Range Interpretation Comments POC-GLUCOSE METER 96 mg/dL 70-[address] [facility] 6720 ([facility]) (test code = [place] Paul [facility] [address] 1538) BASIC METABOLIC [id number] 02:24:00 Test Item Value Reference Range Interpretation [...] S NOT APPLICABLE FOR DIALYSIS PATIEN TS. [id number] 02:22:00 Test Item Value Reference Range Interpretation Comments MAGNESIUM (BEAKER) (test code = 1.7 mg/dL 1.6-2.6 627) [id number] 02:15:00 Test Item Value Reference Range Interpretation Comments PARTIAL THROMBOPLASTIN TIME 98.9 seconds 22.5-36.0 H (BEAKER) (test code = 760) PROTHROMBIN [id number] 02:13:00 Test Item Value Reference Range Interpretation [...] PERCENT (BEAKER) (test code = 2801) POCT-GLUCOSE [id number] 21:51:00 Test Item Value Reference Range Interpretation Comments POC-GLUCOSE METER 98 mg/dL 70-110 TEST[facility] AT [place] [address] [facility] (test code = [place] Paul [facility] [address] 1538) [id number] 18:51:00 Test Item Value Reference Range Interpretation Comments PARTIAL THROMBOPLASTIN TIME 56.1 seconds 22.5-36.0 H (BEAKER) (test code = 760) [id number] 17:06:00 Test Item Value Reference Range Interpretation Comments PARTIAL THROMBOPLASTIN TIME 121.9 seconds 22.5-36.0 H (BEAKER) (test code = 760) POCT-GLUCOSE [id number] 16:46:00 Test Item Value Reference Range Interpretation Comments POC-GLUCOSE METER 135 mg/dL 70-110 H TESTED AT [place] [address] ([facility]) (test code = [place] Paul [facility] 1538) [address] POCT-GLUCOSE [id number] 13:28:00 Test Item Value Reference Range Interpretation Comments POC-GLUCOSE METER 96 mg/dL 70-110 TESTED AT [place] [address] ([facility]) (test code = F[place] Paul [facility] [address] 1538) [id number] 09:15:00 Test Item Value Reference Range Interpretation Comments PARTIAL THROMBOPLASTIN TIME 58.1 seconds 22.5-36.0 H (BEAKER) (test code = 760) BASIC METABOLIC [id number] 07:31:00 Test Item Value Reference Range Interpretation [...] S NOT APPLICABLE FOR DIALYSIS PATIEN TS. [id number] 07:19:00 Test Item Value Reference Range Interpretation Comments PHOSPHORUS (BEAKER) (test code = 3.7 mg/dL 2.3-4.7 604) [id number] 07:19:00 Test Item Value Reference Range Interpretation Comments MAGNESIUM (BEAKER) (test code = 1.7 mg/dL 1.6-2.6 627) [id number] 07:07:00 Test Item Value Reference Range Interpretation Comments PARTIAL THROMBOPLASTIN TIME 124.4 seconds 22.5-36.0 H (BEAKER) (test code = 760) PROTHROMBIN [id number] 07:02:00 Test Item Value Reference Range Interpretation [...] 0-1 PERCENT (BEAKER) (test code = 2801) [id number] 23:01:00 Test Item Value Reference Range Interpretation Comments PARTIAL THROMBOPLASTIN TIME 46.5 seconds 22.5-36.0 H ([facility]) (test code = 760) POCT-GLUCOSE [id number] 22:45:00 Test Item Value Reference Range Interpretation Comments POC-GLUCOSE METER 144 mg/dL 70-[address] [facility] 6720 ([facility]) (test code = [place] Paul [facility] 1538) [address] [id number] 15:02:00 Test Item Value Reference Range Interpretation Comments PARTIAL THROMBOPLASTIN TIME 56.1 seconds 22.5-36.0 H ([facility]) (test code = 760) POCT-GLUCOSE [id number] 14:39:00 Test Item Value Reference Range Interpretation Comments POC-GLUCOSE METER 189 mg/dL 70-[address] [facility] 67 ([facility]) (test code = [place] Paul [facility] 1538) [address] HIV-1 PCR, [id number] 13:58:00 Test Item Value Reference Range Interpretation Comments HIV-1 NUMERIC RESULT ([facility]) (test 170 Cp/mL <20 H code = 2704) This test uses a Real-Time Polymerase Chain Reaction (RT-PCR) methodology to detect a highly conserved region of the HIV-1 gag gene and was performed using the [employer] AmpliPrep/[employer]ICH TaqMan HIV-1 test kit version 2.0 ([employer]Reportable range for this assay is 20 - 10,000,000 copies per mL (1.3 - 7.0 Log copies/mL).[id number] 12:54:00 Test Item Value Reference Range Interpretation Comments PARTIAL THROMBOPLASTIN TIME 143.6 seconds 22.5-36.0 H ([facility]) (test code = 760) [id number] 10:00:00Medical Cytology Report Case: [id number] Authorizing Provider: Alison Solano MD Collected: 08/13/2018 1802 Ordering Location: [address] Received: 08/14/2018 0923 Service Pathologist: Yamil Hamm MD Specimen: Pleural, Right RIGHT PLEURAL FLUID (CYTOSPINS AND CELL BLOCK): - NO MALIGNANT CELLS IDENTIFIED (SEE COMMENT) Signing Pathologist Direct Phone Line: [phone] signed by Yamil Hamm MD on 08/16/2018 [...] thoracentesis may be considered when fluid reaccumulates. 46651, 87066, 12032, 83165 x 2Left pleural effusion, history of AIDS, Kaposi's sarcoma, hepatitis C.RIGHT PLEURAL FLUID 300 mls bloody; 4 cytospins, cell blockCollected: [id number]: [id number] interpretation of this case included the use of immunohistochemistry or special stains. Please see the immunohistochemistry results in the COMMENT section. Immunohistochemistry technical testing was performed at [facility], Pathology Laboratory where it was developed [...] as qualified toperform high complexity clinical laboratory testing.[facility], Department of Pathology, [address] [place] [address], [facility], [facility] of [facility], [address] [place] [address], [facility], Department of Pathology, [address] [place] [address], BCSP-GLUCOSE [id number] 08:29:00 Test Item Value Reference Range Interpretation Comments POC-GLUCOSE METER 96 mg/dL 70-110 TESTED AT [place] [address] (JARROD) (test code = [place] [id number] 1538) BODY FLUID CULTURE + GRAM [id number] 07:54:00 Test Item Value Reference Range Interpretation Comments CULTURE (BEAKER) (test code No growth = 1095) GRAM STAIN RESULT (BEAKER) <1+ WBCs (test code = 1123) GRAM STAIN RESULT (BEAKER) No organisms seen (test code = 88608) BASIC METABOLIC [id number] 06:30:00 Test Item Value Reference Range Interpretation [...] S NOT APPLICABLE FOR DIALYSIS PATIEN TS. [id number] 06:26:00 Test Item Value Reference Range Interpretation Comments MAGNESIUM (BEAKER) (test code = 1.6 mg/dL 1.6-2.6 627) [id number] 05:48:00 Test Item Value Reference Range Interpretation Comments PARTIAL THROMBOPLASTIN TIME 80.3 seconds 22.5-36.0 H (BEAKER) (test code = 760) While on warfarin.PROTHROMBIN TIME/[id number] 05:46:00 Test Item Value Reference Range Interpretation [...] valves.While on warfarin.CBC W/PLT COUNT & AUTO [id number] 05:28:00 Test Item Value Reference Range Interpretation [...] 0-1 PERCENT (BEAKER) (test code = 2801) [id number] 22:09:00 Test Item Value Reference Range Interpretation Comments PARTIAL THROMBOPLASTIN TIME 61.5 seconds 22.5-36.0 H (BEAKER) (test code = 760) RAD, CHEST, 1 VIEW, NON [id number] 20:20:00Reason for exam:->eval right effusionShould this be [...] Anderson Verified Date/Time: 08/15/2018 20:20:24 Reading Location: [facility] Radiology Reading Room POCT-GLUCOSE [id number] 19:05:00 Test Item Value Reference Range Interpretation Comments POC-GLUCOSE METER 87 mg/dL 70-[address] [facility] 6720 ([facility]) (test code = [place] Paul [facility] [address] 1538) POCT-GLUCOSE [id number] 13:12:00 Test Item Value Reference Range Interpretation Comments POC-GLUCOSE METER 162 mg/dL 70-[address] [facility] 6720 ([facility]) (test code = [place]ER Paul [facility] 1538) [address] [id number] 12:48:00 Test Item Value Reference Range Interpretation Comments PARTIAL THROMBOPLASTIN TIME 89.1 seconds 22.5-36.0 H (BEAKER) (test code = 760) POCT-GLUCOSE [id number] 09:58:00 Test Item Value Reference Range Interpretation Comments POC-GLUCOSE METER 229 mg/dL 70-[address] [facility] 6720 (BEAKER) (test code = [place] 1538) [address] BASIC METABOLIC [id number] 05:40:00 Test Item Value Reference Range Interpretation [...] PATIEN TS. CBC W/PLT COUNT & AUTO [id number] 05:38:00 Test Item Value Reference Range Interpretation [...] 0-1 PERCENT (BEAKER) (test code = 2801) [id number] 05:28:00 Test Item Value Reference Range Interpretation Comments MAGNESIUM (BEAKER) (test code = 1.8 mg/dL 1.6-2.6 627) [id number] 04:47:00 Test Item Value Reference Range Interpretation Comments PARTIAL THROMBOPLASTIN TIME 60.9 seconds 22.5-36.0 H (BEAKER) (test code = 760) PROTHROMBIN TIME/[id number] 04:46:00 Test Item Value Reference Range Interpretation Comments PROTIME (BEAKER) (test code = 17.9 seconds 11.7-14.7 H 759) INR (BEAKER) (test code = 370) 1.5 <=5.9 RECOMMENDED COUMADIN/WARFARIN INR THERAPY RANGESSTANDARD DOSE: 2.0 - 3.0 Includes: PROPHYLAXIS forvenous thrombosis, systemic embolization; TREATMENT for venous thrombosis and/or pulmonary embolus.HIGH RISK: Target INR is 2.5-3.5 for patients with mechanical heart valves.[id number] 20:56:00 Test Item Value Reference Range Interpretation Comments PARTIAL THROMBOPLASTIN TIME 52.1 seconds 22.5-36.0 H (JARR[place]) (test code = 760) CT, CHEST, WITHOUT [id number] 19:06:00S/p fall in Jul--> right effusion, tapped [...] Tapia Verified Date/Time: 08/14/2018 19:06:09 Reading Location: [address] Reading Room [id number] 12:40:00 Test Item Value Reference Range Interpretation Comments PARTIAL THROMBOPLASTIN TIME 48.4 seconds 22.5-36.0 H (BEAKER) (test code = 760) CD4 T CELL [id number] 11:15:00 Test Item Value Reference Range Interpretation [...] 107-698 L (BEAKER) (test code = 3491) [id number] 10:48:00 Test Item Value Reference Range Interpretation Comments PHOSPHORUS (BEAKER) (test code = 5.2 mg/dL 2.3-4.7 H 604) BASIC METABOLIC [id number] 07:13:00 Test Item Value Reference Range Interpretation [...] S NOT APPLICABLE FOR DIALYSIS PATIEN TS. [id number] 07:11:00 Test Item Value Reference Range Interpretation Comments MAGNESIUM (BEAKER) (test code = 1.8 mg/dL 1.6-2.6 627) [id number] 07:00:00 Test Item Value Reference Range Interpretation Comments PARTIAL THROMBOPLASTIN TIME 59.2 seconds 22.5-36.0 H (BEAKER) (test code = 760) PROTHROMBIN TIME/[id number] 06:59:00 Test Item Value Reference Range Interpretation [...] 0-1 PERCENT (BEAKER) (test code = 2801) [id number] 00:30:00 Test Item Value Reference Range Interpretation Comments PARTIAL THROMBOPLASTIN TIME 56.7 seconds 22.5-36.0 H (BEAKER) (test code = 760) BODY FLUID CELL COUNT WITH [id number] 19:28:00 Test Item Value Reference Range Interpretation Comments APPEARANCE FLUID (BEAKER) (test Cloudy Clear A code = 510) COLOR FLUID (BEAKER) (test code Red Colorless, Straw A = 511) RBC FLUID (BEAKER) (test code = 06440 /cu mm <=1 H 513) ADJUSTED WBC [...] Tube (test code = 2873) ALBUMIN, BODY [id number] 18:40:00 Test Item Value Reference Range Interpretation Comments ALBUMIN FLUID (BEAKER) (test code = 2.1 gm/dL 501) Reference Range: No Normals Assay performance has not been validated for this type of specimen.LACTATE DEHYDROGENASE (LDH), BODY [id number] 18:40:00 Test Item Value Reference Range Interpretation [...] 125-220 H code = 635) HEPATIC FUNCTION [id number] 18:40:00 Test Item Value Reference Range Interpretation [...] 6-55 347) RAD, CHEST, 1 VIEW, NON [id number] 17:56:00Reason for exam:->post Right thoracentesisShould this be [...] appendage closure. Interstitial edema. Signed: Katherine Arteaga [facility] Verified Date/Time: 08/13/2018 17:56:18 Reading Location: [address] Consult Reading Room U/S, [id number] 16:22:00Reason for exam:->shortness of breath, recurrent right pleural effusionShould this be performed at the bedside?->NoFINAL REPORT Ultrasound guided right thoracentesis, 08/13/2018. Clinical His tory: Right pleural effusion. Modality: Ultrasound. Sedation: None. Agronomy Instructor: Gini. Math Instructor: None. Estimated Blood Loss: 1cc Specimen: 1600 [...] Musaepdamion Verified Date/Time: 08/13/2018 16:22:16 Reading Location: [address] Ultrasound Reading Room [id number] 07:18:00 Test Item Value Reference Range Interpretation Comments MAGNESIUM (BEAKER) (test code = 2.0 mg/dL 1.6-2.6 627) BASIC METABOLIC [id number] 07:18:00 Test Item Value Reference Range Interpretation [...] PATIEN TS. RAD, CHEST, 1 VIEW, NON [id number] 06:25:00Reason for exam:->SOBShould this be performed at [...] Taylorort Verified Date/Time: 08/13/2018 06:25:21 Reading Location: [address] Re ading Room [id number] 05:49:00 Test Item Value Reference Range Interpretation Comments PARTIAL THROMBOPLASTIN TIME 42.0 seconds 22.5-36.0 H (BEAKER) (test code = 760) PROTHROMBIN TIME/[id number] 05:48:00 Test Item Value Reference Range Interpretation [...] PERCENT (BEAKER) (test code = 2801) POCT-GLUCOSE [id number] 18:30:00 Test Item Value Reference Range Interpretation Comments POC-GLUCOSE METER 80 mg/dL 70-[address] [facility] 6720 (BEAKER) (test code = [place] [address] 1538) RAD, CHEST, 1 VIEW, NON [id number] 13:46:00Reason for exam:->evaluate pleural effusionShould this be performed at the bedside?->YesFINAL REPORT Comparison: 08/02/2018 TECHNIQUE: Single view of the chest FINDINGS Bilateral interstitial and airspace opacities are stable. Bilateral pleural effusions seen, right greater than left. No gross new lung parenchymal changes. Post surgical changes in the mediastinum. IMPRESSION: No significant interval change. Signed: Kyle Romeeport Verified Date/Time: 08/06/2018 13:46:20 Reading Location: [facility] Radiology Reading Room [id number] 09:33:00 Test Item Value Reference Range Interpretation Comments PARTIAL THROMBOPLASTIN TIME 113.6 seconds 22.5-36.0 H (BEAKER) (test code = 760) [id number] 06:48:00 Test Item Value Reference Range Interpretation [...] heart valves.While on warfarin.While on warfarin.BASIC METABOLIC [id number] 06:45:00 Test Item Value Reference Range Interpretation [...] NOT APPLICABLE FOR DIALYSIS PATIEN TS. PROTHROMBIN [id number] 06:43:00 Test Item Value Reference Range Interpretation [...] WBC 0-0 (BEAKER) (test code = 413) [id number] 20:40:00 Test Item Value Reference Range Interpretation Comments PARTIAL THROMBOPLASTIN TIME 81.7 seconds 22.5-36.0 H (BEAKER) (test code = 760) [id number] 14:05:00 Test Item Value Reference Range Interpretation Comments PARTIAL THROMBOPLASTIN TIME 91.5 seconds 22.5-36.0 H (BEAKER) (test code = 760) BASIC METABOLIC [id number] 07:02:00 Test Item Value Reference Range Interpretation [...] S NOT APPLICABLE FOR DIALYSIS PATIEN TS. [id number] 06:47:00 Test Item Value Reference Range Interpretation [...] valves.Ok to add onOk to add onPROTHROMBIN TIME/[id number] 06:46:00 Test Item Value Reference Range Interpretation [...] 0-1 PERCENT (BEAKER) (test code = 2801) [id number] 16:22:00 Test Item Value Reference Range Interpretation Comments PARTIAL THROMBOPLASTIN TIME 76.1 seconds 22.5-36.0 H (BEAKER) (test code = 760) BODY FLUID CULTURE + GRAM [id number] 09:10:00 Test Item Value Reference Range Interpretation Comments CULTURE (BEAKER) (test code No growth = 1095) GRAM STAIN RESULT (BEAKER) <1+ WBCs (test code = 1123) GRAM STAIN RESULT (BEAKER) No organisms seen (test code = 79246) CBC W/PLT COUNT & AUTO [id number] 07:23:00 Test Item Value Reference Range Interpretation [...] (BEAKER) (test code = 413) BASIC METABOLIC [id number] 07:05:00 Test Item Value Reference Range Interpretation [...] S NOT APPLICABLE FOR DIALYSIS PATIEN TS. [id number] 06:53:00 Test Item Value Reference Range Interpretation [...] heart valves.Ok to add onOk to add [id number] 06:53:00 Test Item Value Reference Range Interpretation Comments PARTIAL THROMBOPLASTIN TIME 70.3 seconds 22.5-36.0 H (BEAKER) (test code = 760) PROTHROMBIN TIME/[id number] 06:52:00 Test Item Value Reference Range Interpretation Comments PROTIME (BEAKER) (test code = 17.5 seconds 11.7-14.7 H 759) INR (BEAKER) (test code = 370) 1.4 <=5.9 RECOMMENDED COUMADIN/WARFARIN INR THERAPY RANGESSTANDARD DOSE: 2.0 - 3.0 Includes: PROPHYLAXIS forvenous thrombosis, systemic embolization; TREATMENT for venous thrombosis and/or pulmonary embolus.HIGH RISK: Target INR is 2.5-3.5 for patients with mechanical heart valves.PROTHROMBIN TIME/[id number] 06:51:00 Test Item Value Reference Range Interpretation Comments PROTIME (BEAKER) (test code = 17.7 seconds 11.7-14.7 H 759) INR (BEAKER) (test code = 370) 1.5 <=5.9 RECOMMENDED COUMADIN/WARFARIN INR THERAPY RANGESSTANDARD DOSE: 2.0 - 3.0 Includes: PROPHYLAXIS forvenous thrombosis, systemic embolization; TREATMENT for venous thrombosis and/or pulmonary embolus.HIGH RISK: Target INR is 2.5-3.5 for patients with mechanical heart valves.While on warfarin.[id number] 22:47:00 Test Item Value Reference Range Interpretation Comments PARTIAL THROMBOPLASTIN TIME 73.6 seconds 22.5-36.0 H (BEAKER) (test code = 760) [id number] 13:08:00 Test Item Value Reference Range Interpretation Comments PARTIAL THROMBOPLASTIN TIME 49.2 seconds 22.5-36.0 H (BEAKER) (test code = 760) BASIC METABOLIC [id number] 06:56:00 Test Item Value Reference Range Interpretation [...] S NOT APPLICABLE FOR DIALYSIS PATIEN TS. [id number] 06:56:00 Test Item Value Reference Range Interpretation Comments PARTIAL THROMBOPLASTIN TIME 67.5 seconds 22.5-36.0 H (BEAKER) (test code = 760) [id number] 06:45:00 Test Item Value Reference Range Interpretation [...] valves.Ok to add onOk to add onPROTHROMBIN TIME/[id number] 06:44:00 Test Item Value Reference Range Interpretation [...] /100 WBC 0-0 (test code = 413) [id number] 02:18:00 Test Item Value Reference Range Interpretation Comments PARTIAL THROMBOPLASTIN TIME 67.1 seconds 22.5-36.0 H (BEAKER) (test code = 760) [id number] 18:56:00 Test Item Value Reference Range Interpretation Comments PARTIAL THROMBOPLASTIN TIME 72.5 seconds 22.5-36.0 H (BEAKER) (test code = 760) POCT-GLUCOSE [id number] 13:08:00 Test Item Value Reference Range Interpretation Comments POC-GLUCOSE METER 121 mg/dL 70-[address] [facility] 6720 (BEAKER) (test code = [place] 1538) [address] [id number] 12:07:00 Test Item Value Reference Range Interpretation Comments PARTIAL THROMBOPLASTIN TIME 50.7 seconds 22.5-36.0 H (BEAKER) (test code = 760) Ok to add onPROTHROMBIN TIME/[id number] 12:05:00 Test Item Value Reference Range Interpretation [...] = 413) RAD, CHEST, 1 VIEW, NON [id number] 11:24:00Reason for exam:->pleural effusionShould this be performed at the bedside?->YesFINAL REPORT AP chest HISTORY: Pleural effusion COMPARISON: 08/01/2018 IMPRESS ION:Intact skeleton. Cardiomegaly. Moderate interstitial edema. Moderate right and small left effusions. No pneumothorax. Signed: Mandy Chairez MDReport Verified Date/Time: 08/02/2018 11:24:33 Reading Location: [address] Ortho Consult Reading Room BASIC METABOLIC [id number] 02:55:00 Test Item Value Reference Range Interpretation [...] S NOT APPLICABLE FOR DIALYSIS PATIEN TED. [id number] 02:39:00 Test Item Value Reference Range Interpretation Comments PARTIAL THROMBOPLASTIN TIME 51.6 seconds 22.5-36.0 H (BEAKER) (test code = 760) CBC W/PLT COUNT & AUTO [id number] 02:30:00 Test Item Value Reference Range Interpretation [...] = 2801) BODY FLUID CELL COUNT WITH [id number] 21:13:00 Test Item Value Reference Range Interpretation Comments APPEARANCE FLUID (BEAKER) (test Bloody Clear A code = 510) COLOR FLUID (BEAKER) (test code Sunil Colorless, Straw A = 511) RBC FLUID (BEAKER) (test code = 96671 /cu mm <=1 H 513) ADJUSTED WBC [...] Tube (test code = 2873) ALBUMIN, BODY [id number] 20:00:00 Test Item Value Reference Range Interpretation Comments ALBUMIN FLUID (BEAKER) (test code = 2.1 gm/dL 501) Reference Range: No Normals Assay performance has not been validated for this type of specimen.LACTATE DEHYDROGENASE (LDH), BODY [id number] 20:00:00 Test Item Value Reference Range Interpretation [...] of specimen.RAD, CHEST, PA OR AP, 1 [id number] 17:08:00Ultrasound Room 1Reason for exam:->s/p Right sided [...] Vailort Verified Date/Time: 08/01/2018 17:08:13 Reading Location: [facility] Radiology Reading Room U/S, [id number] 17:03:00 Laterality?->RightReason for exam:->large pleural effusionFINAL REPORT HISTORY: Right pleural effusion Following informed written consent, the patient's right posterior chest wall was prepped and draped in the usual sterile manner. 2% lidocaine was given locally for anesthesia. No conscious sedation was administered. Vital signs were monitored and remained stable. Using ultrasound guidance and a 5 Turkmen angiocatheter, access was gain ed to the [...] Seymour Verified Date/Time: 08/01/2018 17:03:15 Reading Location: [facility] B1 P006J Ultrasound Reading Room RAD, CHEST, 1 VIEW, NON [id number] 12:40:00Reason for exam:->pleural effusion; shortness of breathShould [...] MDReport Verified Date/Time: 08/01/2018 12:40:42 Reading Location: [facility] Radiology Reading Room APTT 2018-08-01 11:33:00 Test Item Value Reference Range Interpretation Comments PARTIAL THROMBOPLASTIN TIME 118.1 seconds 22.5-36.0 H (BEAKER) (test code = 760) BASIC METABOLIC [id number] 02:07:00 Test Item Value Reference Range Interpretation [...] S NOT APPLICABLE FOR DIALYSIS PATIEN TS. [id number] 01:55:00 Test Item Value Reference Range Interpretation [...] is 2.5-3.5 for patients with mechanical heart valves.[id number] 01:55:00 Test Item Value Reference Range Interpretation Comments PARTIAL THROMBOPLASTIN TIME 96.8 seconds 22.5-36.0 H (BEAKER) (test code = 760) CBC W/PLT COUNT & AUTO [id number] 01:38:00 Test Item Value Reference Range Interpretation [...] 0-1 PERCENT (BEAKER) (test code = 2801) [id number] 18:58:00 Test Item Value Reference Range Interpretation Comments PARTIAL THROMBOPLASTIN TIME 61.7 seconds 22.5-36.0 H (BEAKER) (test code = 760) [id number] 09:22:00 Test Item Value Reference Range Interpretation Comments PARTIAL THROMBOPLASTIN TIME 61.5 seconds 22.5-36.0 H (BEAKER) (test code = 760) BASIC METABOLIC [id number] 02:14:00 Test Item Value Reference Range Interpretation [...] S NOT APPLICABLE FOR DIALYSIS PATIEN TS. [id number] 01:43:00 Test Item Value Reference Range Interpretation [...] is 2.5-3.5 for patients with mechanical heart valves.[id number] 01:43:00 Test Item Value Reference Range Interpretation Comments PARTIAL THROMBOPLASTIN TIME 62.7 seconds 22.5-36.0 H (BEAKER) (test code = 760) CBC W/PLT COUNT & AUTO [id number] 01:32:00 Test Item Value Reference Range Interpretation [...] 0-1 PERCENT (BEAKER) (test code = 2801) [id number] 18:38:00 Test Item Value Reference Range Interpretation Comments PARTIAL THROMBOPLASTIN TIME 38.9 seconds 22.5-36.0 H (BEAKER) (test code = 760) Prior to initiating heparinPLATELET [id number] 18:17:00 Test Item Value Reference Range Interpretation Comments PLATELET COUNT (BEAKER) (test 115 K/CU MM 150-450 L code = 756) RAD, CHEST, 2 [id number] 18:05:00Reason for exam:->sob and pleural effusionFINAL REPORT [...] Sykes MDReport Verified Date/Time: 07/30/2018 18:05:46Reading Location: [facility] C013W Consult Reading Room C METABOLIC [id number] 05:26:00 Test Item Value Reference Range Interpretation [...] S NOT APPLICABLE FOR DIALYSIS PATIEN TS. [id number] 05:25:00 Test Item Value Reference Range Interpretation [...] 2.5-3.5 for patients with mechanical heart valves.PROTHROMBIN TIME/[id number] 05:24:00 Test Item Value Reference Range Interpretation [...] (test code = 2801) HEPATITIS B SURFACE [id number] 12:09:00 Test Item Value Reference Range Interpretation Comments HEPATITIS B SURFACE ANTIGEN (2) Nonreactive Nonreactive (BEAKER) (test code = 2585) POCT-GLUCOSE [id number] 07:50:00 Test Item Value Reference Range Interpretation Comments POC-GLUCOSE METER 93 mg/dL 70-[address] [facility] 67 ([facility] (test code = [facility] [address] 1538) [id number] 04:59:00 Test Item Value Reference Range Interpretation [...] for patients with mechanical heart valves.BASIC METABOLIC [id number] 04:59:00 Test Item Value Reference Range Interpretation [...] PATIEN TS. CBC W/PLT COUNT & AUTO [id number] 04:51:00 Test Item Value Reference Range Interpretation [...] (test code = 2801) AFB CULTURE + [id number] 16:13:00 Test Item Value Reference Range Interpretation Comments CULTURE (BEAKER) (test No acid-fast bacilli code = 1095) isolated in 42 days AFB SMEAR (BEAKER) No acid fast bacilli (test code = 994) seen AFB CULTURE + [id number] 16:13:00 Test Item Value Reference Range Interpretation Comments CULTURE (BEAKER) (test No acid-fast bacilli code = 1095) isolated in 42 days AFB SMEAR (BEAKER) No acid fast bacilli (test code = 994) seen FUNGUS CULTURE + [id number] 07:13:00 Test Item Value Reference Range Interpretation Comments CULTURE (BEAKER) (test No fungus isolated in code = 1095) 28 days FUNGUS SMEAR (BEAKER) No fungi seen (test code = 1406) FUNGUS CULTURE + [id number] 07:13:00 Test Item Value Reference Range Interpretation Comments CULTURE ([facility]) (test No fungus isolated in code = 1095) 28 days FUNGUS SMEAR ([facility]) No fungi seen (test code = 1406) TISSUE [id number] 19:17:00Surgical Pathology Report Case: [id number] Authorizing Provider: Juliana Martinez MD Collected: 05/23/2018 08 Ordering Location: [facility] Received: 05/23/2018 0923 SERVICES Pathologist: Brigida Parks MD Specimen: Soft Tissue, Other, LEFT GROIN - TISSUE BIOPSY SKIN AND SOFT TISSUE,GROIN,LEFT, BIOPSY: - ABSCESSES, GRANULOMAS AND CHRONIC INFLAMMATION - NEGATIVE FOR DYSPLASIA OR MALIGNANCY - AFB AND GMS STAINS ARE NEGATIVE (SEE COMMENT) Signing Pathologist Direct Phone Line: [phone] signed by Brigida Parks MD on 06/02/2018 at 7:17 PMCorrelation with culture studies is recommended.21417Hpfaigwjj abscess groinLeft groin tissue biopsyReceived fresh labeled "soft tissue, other", description "left groin tissue biopsy" are two dark-potrer, wrinkled,hair- bearing strips of skin measuring 1.5 and 2.6 cm in length, 0.3 cm in diameter and excised to a depth of 0.3 cm.Sectioning reveals no discrete masses.The specimen is entirely submitted in cassettesA1. DB/ewPOCT-GLUCOSE [id number] 08:51:00 Test Item Value Reference Range Interpretation Comments POC-GLUCOSE METER 101 mg/dL 70-[address] [facility] 6720 ([facility]) (test code = [place] [facility] 1538) [address] CBC W/PLT COUNT & AUTO [id number] 06:01:00 Test Item Value Reference Range Interpretation Comments WHITE BLOOD CELL COUNT ([facility]) 7.1 K/ L 3.5-10.5 (test code = 775) RED BLOOD CELL COUNT ([facility]) 3.50 M/ L 4.63-6.08 L (test code = 761) HEMOGLOBIN ([facility]) (test code = 10.7 GM/DL 13.7-17.5 L 410) HEMATOCRIT ([facility]) (test code = 33.4 % 40.1-51.0 [...] PERCENT (BEAKER) (test code = 2801) PROTHROMBIN [id number] 05:51:00 Test Item Value Reference Range Interpretation Comments PROTIME (BEAKER) (test code = 25.9 seconds 11.7-14.7 H 759) INR (BEAKER) (test code = 370) 2.4 <=5.9 RECOMMENDED COUMADIN/WARFARIN INR THERAPY RANGESSTANDARD DOSE: 2.0 - 3.0 Includes: PROPHYLAXIS forvenous thrombosis, systemic embolization; TREATMENT for venous thrombosis and/or pulmonary embolus.HIGH RISK: Target INR is 2.5-3.5 for patients with mechanical heart valves.BASIC METABOLIC [id number] 05:46:00 Test Item Value Reference Range Interpretation [...] NOT APPLICABLE FOR DIALYSIS PATIEN TS. POCT-GLUCOSE [id number] 20:34:00 Test Item Value Reference Range Interpretation Comments POC-GLUCOSE METER 261 mg/dL 70-110 H TESTED AT [place] [address] ([facility]) (test code = [place]ER [place] [facility] 1538) [address] POCT-GLUCOSE [id number] 18:12:00 Test Item Value Reference Range Interpretation Comments POC-GLUCOSE METER 139 mg/dL 70-110 H TESTED AT [place] [address] ([facility]) (test code = [facility] 1538) [address] POCT-GLUCOSE [id number] 11:51:00 Test Item Value Reference Range Interpretation Comments POC-GLUCOSE METER 147 mg/dL 70-110 H TESTED AT [place] [address] ([facility]) (test code = [facility] 1538) [address] POCT-GLUCOSE [id number] 08:42:00 Test Item Value Reference Range Interpretation Comments POC-GLUCOSE METER 104 mg/dL 70-[address] [facility] 6720 (BEAKER) (test code = [place] 1538) [address] CBC W/PLT COUNT & AUTO [id number] 06:56:00 Test Item Value Reference Range Interpretation [...] (BEAKER) (test code = 2801) BASIC METABOLIC [id number] 06:49:00 Test Item Value Reference Range Interpretation [...] NOT APPLICABLE FOR DIALYSIS PATIEN TS. PROTHROMBIN [id number] 06:46:00 Test Item Value Reference Range Interpretation Comments PROTIME (BEAKER) (test code = 26.9 seconds 11.7-14.7 H 759) INR (BEAKER) (test code = 370) 2.5 <=5.9 RECOMMENDED COUMADIN/WARFARIN INR THERAPY RANGESSTANDARD DOSE: 2.0 - 3.0 Includes: PROPHYLAXIS forvenous thrombosis, systemic embolization; TREATMENT for venous thrombosis and/or pulmonary embolus.HIGH RISK: Target INR is 2.5-3.5 for patients with mechanical heart valves.ANAEROBIC [id number] 00:38:00 Test Item Value Reference Range Interpretation Comments CULTURE (BEAKER) (test No anaerobes isolated code = 1095) ANAEROBIC [id number] 00:38:00 Test Item Value Reference Range Interpretation Comments CULTURE (BEAKER) (test No anaerobes isolated code = 1095) POCT-GLUCOSE [id number] 20:43:00 Test Item Value Reference Range Interpretation Comments POC-GLUCOSE METER 124 mg/dL 70-[address] [facility] 67 ([facility]) (test code = [facility] 1538) [address] POCT-GLUCOSE [id number] 17:17:00 Test Item Value Reference Range Interpretation Comments POC-GLUCOSE METER 190 mg/dL 70-110 H TESTED AT [place] [address] ([facility]) (test code = [facility] 1538) [address] POCT-GLUCOSE [id number] 11:54:00 Test Item Value Reference Range Interpretation Comments POC-GLUCOSE METER 195 mg/dL 70-110 H TESTED AT [place] [address] ([facility]) (test code = [facility] 1538) [address] C. DIFFICILE GDH [id number] 11:16:00 Test Item Value Reference Range Interpretation Comments CDT TOXIN (test code Negative Negative = [id number]) CDT GDH ANTIGEN (test Negative Negative No ind ication of code = [id number]) Clostridi um difficile infection and n o colonization. Discontinue ent kenrick isolation and t herapy. Testing performed by [employer] Rapid Cassette Assay. For GDH, published sensitivity of the assay is 98.7% compared to cytotoxicity testing. For Toxin AB, published sensitivity is 87.8% and specificity 99.4% compared to cytotoxicity testing.Verification of kit performance was done by the [facility] Microbiology Lab prior to clinical use.SURGICALLY OBTAINED CULTURE + GRAM [id number] 09:22:00 Test Item Value Reference Interpretation Comments [...] No organisms seen (BEAKER) (test code = 257810) SURGICALLY OBTAINED CULTURE + GRAM [id number] 09:20:00 Test Item Value Reference Range Interpretation Comments CULTURE (BEAKER) (test code No growth = 1095) GRAM STAIN RESULT (BEAKER) 4+ WBCs (test code = 1123) GRAM STAIN RESULT (BEAKER) No organisms seen (test code = 69985) POCT-GLUCOSE [id number] 08:21:00 Test Item Value Reference Range Interpretation Comments POC-GLUCOSE METER 101 mg/dL 70-[address] [facility] 6720 (BEAKER) (test code = [place] 1538) [address] BASIC METABOLIC [id number] 07:57:00 Test Item Value Reference Range Interpretation [...] NOT APPLICABLE FOR DIALYSIS PATIEN TS. PROTHROMBIN [id number] 06:36:00 Test Item Value Reference Range Interpretation [...] PERCENT (BEAKER) (test code = 2801) POCT-GLUCOSE [id number] 21:40:00 Test Item Value Reference Range Interpretation Comments POC-GLUCOSE METER 176 mg/dL 70-110 H TESTED AT [place] [address] ([facility]) (test code = [facility] 1538) [address] POCT-GLUCOSE [id number] 16:07:00 Test Item Value Reference Range Interpretation Comments POC-GLUCOSE METER 120 mg/dL 70-110 H TESTED AT [place] [address] ([facility]) (test code = [facility] 1538) [address] POCT-GLUCOSE [id number] 08:31:00 Test Item Value Reference Range Interpretation Comments POC-GLUCOSE METER 119 mg/dL 70-110 H TESTED AT [place] [address] ([facility]) (test code = [facility] 1538) [address] BASIC METABOLIC [id number] 08:19:00 Test Item Value Reference Range Interpretation [...] APPLICABLE FOR DIALYSIS PATIEN TS. VANCOMYCIN LEVEL, [id number] 08:16:00 Test Item Value Reference Range Interpretation Comments VANCOMYCIN RANDOM (BEAKER) (test 17.6 ug/mL code = 523) Reference Range: No NormalsPROTHROMBIN [id number] 07:21:00 Test Item Value Reference Range Interpretation [...] PERCENT (BEAKER) (test code = 2801) BLOOD [id number] 06:00:00 Test Item Value Reference Range Interpretation Comments CULTURE (BEAKER) (test No growth in 5 days code = 1095) BLOOD [id number] 00:00:00 Test Item Value Reference Range Interpretation Comments CULTURE (BEAKER) (test No growth in 5 days code = 1095) POCT-GLUCOSE [id number] 22:05:00 Test Item Value Reference Range Interpretation Comments POC-GLUCOSE METER 169 mg/dL 70-[address] [facility] 6720 (BEAKER) (test code = [facility] Humberto [facility] 1538) [address] POCT-GLUCOSE [id number] 18:20:00 Test Item Value Reference Range Interpretation Comments POC-GLUCOSE METER 110 mg/dL 70-[address] [facility] 6720 (BEAKER) (test code = [facility] 1538) [address] POCT-GLUCOSE [id number] 17:17:00 Test Item Value Reference Range Interpretation Comments POC-GLUCOSE METER 99 mg/dL 70-110 TESTED AT [place] [id number] (BEAKER) (test code = [facility] H[place]to [facility] [address] 1538) SPIN/CONCENTRATION [id number] 14:49:00 Test Item Value Reference Range Interpretation Comments CONCENTRATION CHARGED (BEAKER) (test Done code = 2657) SPIN/CONCENTRATION [id number] 14:49:00 Test Item Value Reference Range Interpretation Comments CONCENTRATION CHARGED (BEAKER) (test Done code = 2657) POCT-GLUCOSE [id number] 12:13:00 Test Item Value Reference Range Interpretation Comments POC-GLUCOSE METER 188 mg/dL 70-[address] [facility] 67 ([facility]) (test code = [facility] [place] 1538) [address] BASIC METABOLIC [id number] 09:56:00 Test Item Value Reference Range Interpretation [...] NOT APPLICABLE FOR DIALYSIS PATIEN TS. POCT-GLUCOSE [id number] 07:45:00 Test Item Value Reference Range Interpretation Comments POC-GLUCOSE METER 108 mg/dL 70-110 TESTED AT [place] [address] (BEAKER) (test code = [facility] [place] 1538) [address] CBC W/PLT COUNT & AUTO [id number] 07:00:00 Test Item Value Reference Range Interpretation [...] PERCENT (BEAKER) (test code = 2801) PROTHROMBIN [id number] 06:47:00 Test Item Value Reference Range Interpretation Comments PROTIME (BEAKER) (test code = 20.7 seconds 11.7-14.7 H 759) INR (BEAKER) (test code = 370) 1.8 <=5.9 RECOMMENDED COUMADIN/WARFARIN INR THERAPY RANGESSTANDARD DOSE: 2.0 - 3.0 Includes: PROPHYLAXIS forvenous thrombosis, systemic embolization; TREATMENT for venous thrombosis and/or pulmonary embolus.HIGH RISK: Target INR is 2.5-3.5 for patients with mechanical heart valves.POCT-GLUCOSE [id number] 20:42:00 Test Item Value Reference Range Interpretation Comments POC-GLUCOSE METER 134 mg/dL 70-110 H TESTED AT [place] [address] ([facility]) (test code = [facility] 1538) [address] POCT-GLUCOSE [id number] 13:29:00 Test Item Value Reference Range Interpretation Comments POC-GLUCOSE METER 209 mg/dL 70-110 H TESTED AT [place] [address] ([facility]) (test code = [facility] 1538) [address] POCT-GLUCOSE [id number] 08:53:00 Test Item Value Reference Range Interpretation Comments POC-GLUCOSE METER 103 mg/dL 70-110 TESTED AT [place] [address] ([facility]) (test code = [facility] 1538) [address] BASIC METABOLIC [id number] 07:47:00 Test Item Value Reference Range Interpretation [...] DIALYSIS PATIEN TS. WOUND CULTURE + GRAM [id number] 07:44:00 Test Item Value Reference Range Interpretation Comments CULTURE (BEAKER) (test code No growth = 1095) GRAM STAIN RESULT (BEAKER) No WBCs (test code = 1123) GRAM STAIN RESULT (BEAKER) No organisms seen (test code = 38743) [id number] 07:38:00 Test Item Value Reference Range Interpretation Comments PHOSPHORUS (BEAKER) (test code = 3.2 mg/dL 2.3-4.7 604) CBC W/PLT COUNT & AUTO [id number] 06:35:00 Test Item Value Reference Range Interpretation [...] PERCENT (BEAKER) (test code = 2807) PROTHROMBIN [id number] 06:32:00 Test Item Value Reference Range Interpretation Comments PROTIME (BEAKER) (test code = 23.2 seconds 11.7-14.7 H 759) [facility] (test code = 370) 2.1 <=5.9 RECOMMENDED COUMADIN/WARFARIN INR THERAPY RANGESSTANDARD DOSE: 2.0 - 3.0 Includes: PROPHYLAXIS forvenous thrombosis, systemic embolization; TREATMENT for venous thrombosis and/or pulmonary embolus.HIGH RISK: Target INR is 2.5-3.5 for patients with mechanical heart valves.POCT-GLUCOSE [id number] 21:21:00 Test Item Value Reference Range Interpretation Comments POC-GLUCOSE METER 177 mg/dL 70-[address] [facility] 6720 ([facility]) (test code = [facility] 1538) [address] POCT-GLUCOSE [id number] 17:53:00 Test Item Value Reference Range Interpretation Comments POC-GLUCOSE METER 89 mg/dL 70-[address] [facility] 6720 ([facility]) (test code = [facility] [address] 1538) IRON, TIBC, % SAT. (WITHOUT FERRITIN)2018-05-22 17:45:00 Test Item Value Reference Range Interpretation Comments IRON (BEAKER) (test code = 547) 63 ug/dL 40-160 TOTAL IRON BINDING CAPACITY 203 ug/dL 250-450 L ([facility]) (test code = 769) IRON % SATURATION (2) ([facility]) 31 % 20-55 (test code = 2590) [id number] 16:07:00 Test Item Value Reference Range Interpretation Comments PHOSPHORUS (BEAKER) (test code = 5.4 mg/dL 2.3-4.7 H 604) POCT-GLUCOSE [id number] 12:41:00 Test Item Value Reference Range Interpretation Comments POC-GLUCOSE METER 110 mg/dL 70-[address] [facility] 6720 (BEAKER) (test code = [facility] [place] 1538) [address] POCT-GLUCOSE [id number] 07:00:00 Test Item Value Reference Range Interpretation Comments POC-GLUCOSE METER 159 mg/dL 70-[address] [facility] 6720 (BEAKER) (test code = [facility] [place] 1538) [address] BASIC METABOLIC [id number] 05:19:00 Test Item Value Reference Range Interpretation [...] S NOT APPLICABLE FOR DIALYSIS PATIEN TS. [id number] 05:18:00 Test Item Value Reference Range Interpretation Comments MAGNESIUM (BEAKER) (test code = 1.9 mg/dL 1.6-2.6 627) PROTHROMBIN [id number] 05:03:00 Test Item Value Reference Range Interpretation [...] PERCENT (AKER) (test code = 2801) POCT-GLUCOSE [id number] 23:35:00 Test Item Value Reference Range Interpretation Comments POC-GLUCOSE METER 190 mg/dL 70-[address] [facility] 6720 ([facility]) (test code = [facility] 1538) [address] POCT-GLUCOSE [id number] 17:16:00 Test Item Value Reference Range Interpretation Comments POC-GLUCOSE METER 122 mg/dL 70-[address] [facility] 6720 ([facility]) (test code = [facility] 1538) [address] U/S, TESTICULAR (SCROTUM)2018-05-21 14:53:00Reason for exam:->testicular swellingFINAL [...] MDReport Verified Date/Time: 05/21/2018 14:53:00 Reading Location: [facility] [id number] UltrasoundReading Room POCT- GLUCOSE [id number] 11:22:00 Test Item Value Reference Range Interpretation Comments POC-GLUCOSE METER 144 mg/dL 70-110 H TESTED AT [place] [address] (BEAKER) (test code = [facility] 1538) 18560 POCT-GLUCOSE [id number] 07:05:00 Test Item Value Reference Range Interpretation Comments POC-GLUCOSE METER 171 mg/dL 70-110 H [facility] [place] [address] [facility] (test code = [facility] 1538) [address] BASIC METABOLIC [id number] 06:19:00 Test Item Value Reference Range Interpretation [...] S NOT APPLICABLE FOR DIALYSIS PATIEN TS. [id number] 06:04:00 Test Item Value Reference Range Interpretation Comments MAGNESIUM (BEAKER) (test code = 1.9 mg/dL 1.6-2.6 627) PROTHROMBIN [id number] 05:31:00 Test Item Value Reference Range Interpretation [...] PERCENT (BEAKER) (test code = 2801) POCT-GLUCOSE [id number] 21:29:00 Test Item Value Reference Range Interpretation Comments POC-GLUCOSE METER 156 mg/dL 70-110 H TESTED AT [place] [address] ([facility]) (test code = [facility] [place] [facility] 1538) [address] POCT-GLUCOSE [id number] 18:14:00 Test Item Value Reference Range Interpretation Comments POC-GLUCOSE METER 93 mg/dL 70-110 TESTED AT [place] [address] ([facility]) (test code = [facility] [place] [facility] [address] 1538) PROTHROMBIN [id number] 13:26:00 Test Item Value Reference Range Interpretation [...] Range ChangeNew: 0.5-2.2 mmol/L Previous: 5-20 mg/dLPOCT-GLUCOSE [id number] 12:04:00 Test Item Value Reference Range Interpretation Comments POC-GLUCOSE METER 111 mg/dL 70-[address] [facility] 6720 (BEAKER) (test code = [place] 1538) [address] CD4 T CELL [id number] 12:04:00 Test Item Value Reference Range Interpretation Comments CD4/CD8 RATIO FC (BEAKER) (test code = 0.76 0.70-3.23 5767) HEPATITIS B SURFACE [id number] 11:32:00 Test Item Value Reference Range Interpretation Comments HEPATITIS B SURFACE ANTIGEN (2) Nonreactive Nonreactive (BEAKER) (test code = 2585) VANCOMYCIN LEVEL, [id number] 11:10:00 Test Item Value Reference Range Interpretation Comments VANCOMYCIN RANDOM (BEAKER) (test 20.7 ug/mL code = 523) Reference Range: No NormalsBASIC METABOLIC [id number] 09:19:00 Test Item Value Reference Range Interpretation [...] S NOT APPLICABLE FOR DIALYSIS PATIEN TS. [id number] 09:16:00 Test Item Value Reference Range Interpretation Comments MAGNESIUM (BEAKER) (test code = 2.1 mg/dL 1.6-2.6 627) RAD, CHEST, 1 VIEW, NON [id number] 07:56:00Reason for exam:->pleural effusion seen on outside hospital imagingShould this be performed at the bedside?->YesFINAL REPORT Chest one view compared to February 23 Discussion: Small effusions are similar. Replaced cardiac valve and atrial appendage clip noted. No pneumothorax. Unchanged cardiac pulmonary appearance. Signed: Rhea Colindres Verified Date/Time: 05/20/2018 07:56:50 Reading Location: [facility] Radiology Reading Room POCT-GLUCOSE [id number] 07:32:00 Test Item Value Reference Range Interpretation Comments POC-GLUCOSE METER 105 mg/dL 70-[address] [facility] 6720 ([facility]) (test code = [place] [facility] 1538) [address] CBC W/PLT COUNT & AUTO [id number] 07:01:00 Test Item Value Reference Range Interpretation [...] (BEAKER) (test code = 2801) VANCOMYCIN LEVEL, [id number] 22:39:00 Test Item Value Reference Range Interpretation Comments VANCOMYCIN RANDOM (BEAKER) (test 22.0 ug/mL code = 523) Reference Range: No NormalsCOMPREHENSIVE METABOLIC [id number] 22:39:00 Test Item Value Reference Range Interpretation [...] S NOT APPLICABLE FOR DIALYSIS PATIEN TS. [id number] 22:38:00 Test Item Value Reference Range Interpretation Comments PHOSPHORUS (BEAKER) (test code = 4.5 mg/dL 2.3-4.7 604) [id number] 22:38:00 Test Item Value Reference Range Interpretation Comments MAGNESIUM (BEAKER) (test code = 2.0 mg/dL 1.6-2.6 627) [id number] 22:29:00 Test Item Value Reference Range Interpretation Comments PARTIAL THROMBOPLASTIN TIME 45.0 seconds 22.5-36.0 H (BEAKER) (test code = 760) PROTHROMBIN [id number] 22:28:00 Test Item Value Reference Range Interpretation Comments PROTIME (BEAKER) (test code = 48.1 seconds 11.7-14.7 H 759) INR (BEAKER) (test code = 370) 5.2 <=5.9 RECOMMENDED COUMADIN/WARFARIN INR THERAPY RANGESSTANDARD DOSE: 2.0 - 3.0 Includes: PROPHYLAXIS forvenous thrombosis, systemic embolization; TREATMENT for venous thrombosis and/or pulmonary embolus.HIGH RISK: Target INR is 2.5-3.5 for patients with mechanical heart valves.POCT-GLUCOSE [id number] 21:38:00 Test Item Value Reference Range Interpretation Comments POC-GLUCOSE METER 105 mg/dL 70-[address] [facility] 6720 (JARROD) (test code = [place] 1538) [address] XR Ankle Complete 3+ Views [id number] 22:30:07Patient: SALVATORE LUGO Date/Time05/12/2018 22:24 CDTReason for [...] FSigned (Electronic Signature): 05/12/2018 9:48 amBASIC METABOLIC [id number] 11:15:00 Test Item Value Reference Range Interpretation [...] (BEAKER) (test code = 700) BASIC METABOLIC [id number] 02:55:00 Test Item Value Reference Range Interpretation [...] H (BEAKER) (test code = 700) TROPONIN [id number] 02:30:00 Test Item Value Reference Range Interpretation [...] failure, acidosis, acute neurological disease, and persistent tachyarrhythmia.[id number] 02:21:00 Test Item Value Reference Range Interpretation Comments MAGNESIUM (BEAKER) (test code = 1.8 mg/dL 1.6-2.6 627) CBC W/PLT COUNT & AUTO [id number] 00:24:00 Test Item Value Reference Range Interpretation [...] 0-1 PERCENT (BEAKER) (test code = 2801) [id number] 00:01:00 Test Item Value Reference Range Interpretation [...] mechanical heart valves.RAD, CHEST, 1 VIEW, NON [id number] 23:39:00Reason for exam:->chest painShould this be performed [...] worrisome for fluid overload-heart failure. Signed: [facility] Verified Date/Time: 02/23/2018 23:39:58 Reading Location: [address] Reading Room POCT-GLUCOSE [id number] 19:47:00 Test Item Value Reference Range Interpretation Comments POC-GLUCOSE METER 94 mg/dL 70-110 TESTED AT [place] [address] ([facility]) [facility] [address] 1538) POCT-GLUCOSE [id number] 17:07:00 Test Item Value Reference Range Interpretation Comments POC-GLUCOSE METER 176 mg/dL 70-110 H TESTED AT [place] [address] ([facility]) (test code = [facility] 1538) [address] POCT-GLUCOSE [id number] 12:31:00 Test Item Value Reference Range Interpretation Comments POC-GLUCOSE METER 84 mg/dL 70-110 TESTED AT [place] [address] ([facility]) (test code = [facility] [place] [facility] [address] 1538) [id number] 10:40:00 Test Item Value Reference Range Interpretation Comments PARTIAL THROMBOPLASTIN TIME 88.5 seconds 22.5-36.0 H ([facility]) (test code = 760) OCCULT BLOOD, [id number] 09:36:00 Test Item Value Reference Range Interpretation Comments FECAL OCCULT BLOOD ([facility]) (test Negative Negative code = 618) POCT-GLUCOSE [id number] 08:51:00 Test Item Value Reference Range Interpretation Comments POC-GLUCOSE METER 223 mg/dL 70-110 H TESTED AT [place] [address] ([facility]) (test code = [facility] 1538) [address] [id number] 04:14:00 Test Item Value Reference Range Interpretation Comments PARTIAL THROMBOPLASTIN TIME 80.3 seconds 22.5-36.0 H ([facility]) (test code = 760) While on warfarin.PROTHROMBIN [id number] 04:13:00 Test Item Value Reference Range Interpretation [...] mg/dL 70-110 H TESTED AT [place] [address] ([facility]) (test code = [place]ER [place] [facility] 1538) [address] [id number] 19:50:00 Test Item Value Reference Range Interpretation Comments PARTIAL THROMBOPLASTIN TIME 59.7 seconds 22.5-36.0 H ([facility]) (test code = 760) POCT-GLUCOSE [id number] 17:00:00 Test Item Value Reference Range Interpretation Comments POC-GLUCOSE METER 183 mg/dL 70-110 H TESTED AT [place] [address] ([facility]) (test code = [place] [facility] 1538) [address] [id number] 12:45:00 Test Item Value Reference Range Interpretation Comments PARTIAL THROMBOPLASTIN TIME 89.5 seconds 22.5-36.0 H ([facility]) (test code = 760) CBC W/PLT COUNT & AUTO [id number] 12:04:00 Test Item Value Reference Range Interpretation Comments WHITE BLOOD CELL COUNT ([facility]) 4.8 K/ L 3.5-10.5 (test code = 775) RED BLOOD CELL COUNT ([facility]) 2.46 M/ L 4.63-6.08 L (test code = 761) HEMOGLOBIN ([facility]) (test code = 7.5 GM/DL 13.7-17.5 L 410) HEMATOCRIT ([facility]) (test code = 24.2 % 40.1-51.0 [...] WBC 0-0 (test code = 413) POCT-GLUCOSE [id number] 11:54:00 Test Item Value Reference Range Interpretation Comments POC-GLUCOSE METER 124 mg/dL 70-110 H TESTED AT [place] [address] ([facility]) (test code = [place]ER [place] [facility] 1538) [address]994 POCT-GLUCOSE [id number] 07:48:00 Test Item Value Reference Range Interpretation Comments POC-GLUCOSE METER 178 mg/dL 70-110 H TESTED AT [place] [address] ([facility] 1538) [address] BASIC METABOLIC [id number] 05:15:00 Test Item Value Reference Range Interpretation [...] S NOT APPLICABLE FOR DIALYSIS PATIEN TS. [id number] 04:51:00 Test Item Value Reference Range Interpretation Comments MAGNESIUM (BEAKER) (test code = 1.8 mg/dL 1.6-2.6 627) [id number] 04:36:00 Test Item Value Reference Range Interpretation Comments PARTIAL THROMBOPLASTIN TIME 91.9 seconds 22.5-36.0 H (BEAKER) (test code = 760) While on warfarin.PROTHROMBIN [id number] 04:34:00 Test Item Value Reference Range Interpretation [...] mg/dL 70-110 H TESTED AT [place] [address] ([facility]) (test code = [facility] 1538) [address] [id number] 21:23:00 Test Item Value Reference Range Interpretation Comments PARTIAL THROMBOPLASTIN TIME 84.1 seconds 22.5-36.0 H ([facility]) (test code = 760) POCT-GLUCOSE [id number] 16:57:00 Test Item Value Reference Range Interpretation Comments POC-GLUCOSE METER 156 mg/dL 70-110 H TESTED AT [place] [id number] ([facility]) (test code = [facility] 1538) [address] [id number] 14:11:00 Test Item Value Reference Range Interpretation Comments PARTIAL THROMBOPLASTIN TIME 96.5 seconds 22.5-36.0 H ([facility]) (test code = 760) POCT-GLUCOSE [id number] 08:24:00 Test Item Value Reference Range Interpretation Comments POC-GLUCOSE METER 169 mg/dL 70-110 H TESTED AT [place] [address] ([facility]) (test code = [place] [address]38) [id number] POCT-GLUCOSE [id number] 06:49:00 Test Item Value Reference Range Interpretation Comments POC-GLUCOSE METER 172 mg/dL 70-110 H TESTED AT [place] [address] ([facility]) (test code = [place] [address]) [id number] 04:59:00 Test Item Value Reference Range Interpretation Comments PARTIAL THROMBOPLASTIN TIME 64.7 seconds 22.5-36.0 H ([facility]) (test code = 760) While on warfarin.PROTHROMBIN [id number] 04:57:00 Test Item Value Reference Range Interpretation Comments PROTIME ([facility]) (test code = 17.5 seconds 11.7-14.7 H 759) INR ([facility]) (test code = 370) 1.4 <=5.9 RECOMMENDED COUMADIN/WARFARIN INR THERAPY RANGESSTANDARD DOSE: 2.0 - 3.0 Includes: PROPHYLAXIS forvenous thrombosis, systemic embolization; TREATMENT for venous thrombosis and/or pulmonary embolus.HIGH RISK: Target INR is 2.5-3.5 for patients with mechanical heart valves.While on warfarin.[id number] 21:55:00 Test Item Value Reference Range Interpretation Comments PARTIAL THROMBOPLASTIN TIME 68.8 seconds 22.5-36.0 H ([facility]) (test code = 760) [id number] 13:54:00 Test Item Value Reference Range Interpretation Comments PARTIAL THROMBOPLASTIN TIME 51.7 seconds 22.5-36.0 H ([facility]) (test code = 760) POCT-GLUCOSE [id number] 11:56:00 Test Item Value Reference Range Interpretation Comments POC-GLUCOSE METER 101 mg/dL 70-110 TESTED AT [place] [address] ([facility]) (test code = [place] 1538) [address] POCT-GLUCOSE [id number] 07:58:00 Test Item Value Reference Range Interpretation Comments POC-GLUCOSE METER 111 mg/dL 70-110 H TESTED AT [place] [address] ([facility]) (test code = [place] 1538) [address] BASIC METABOLIC [id number] 05:35:00 Test Item Value Reference Range Interpretation [...] S NOT APPLICABLE FOR DIALYSIS PATIEN TS. [id number] 05:34:00 Test Item Value Reference Range Interpretation Comments PHOSPHORUS (BEAKER) (test code = 4.2 mg/dL 2.3-4.7 604) [id number] 05:34:00 Test Item Value Reference Range Interpretation Comments MAGNESIUM (BEAKER) (test code = 1.7 mg/dL 1.6-2.6 627) PROTHROMBIN [id number] 05:24:00 Test Item Value Reference Range Interpretation Comments PROTIME (BEAKER) (test code = 18.8 seconds 11.7-14.7 H 759) INR (BEAKER) (test code = 370) 1.6 <=5.9 RECOMMENDED COUMADIN/WARFARIN INR THERAPY RANGESSTANDARD DOSE: 2.0 - 3.0 Includes: PROPHYLAXIS forvenous thrombosis, systemic embolization; TREATMENT for venous thrombosis and/or pulmonary embolus.HIGH RISK: Target INR is 2.5-3.5 for patients with mechanical heart valves.[id number] 05:05:00 Test Item Value Reference Range Interpretation Comments PARTIAL THROMBOPLASTIN TIME 96.6 seconds 22.5-36.0 H ([facility]) (test code = 760) CBC W/PLT COUNT & AUTO [id number] 04:54:00 Test Item Value Reference Range Interpretation [...] (test code = 416) BASOPHILS ABSOLUTE COUNT ([facility]) 0.02 K/ L 0.01-0.08 (test code = 417) IMMATURE GRANULOCYTES-RELATIVE 1 % 0-1 PERCENT ([facility]) (test code = 2801) OCCULT BLOOD, [id number] 22:44:00 Test Item Value Reference Range Interpretation Comments FECAL OCCULT BLOOD ([facility]) (test Positive Negative A code = 618) [id number] 21:14:00 Test Item Value Reference Range Interpretation Comments PARTIAL THROMBOPLASTIN TIME 69.1 seconds 22.5-36.0 H ([facility]) (test code = 760) POCT-GLUCOSE [id number] 20:49:00 Test Item Value Reference Range Interpretation Comments POC-GLUCOSE METER 160 mg/dL 70-110 H TESTED AT [place] [address] ([facility]) [facility] 1538) [address] POCT-GLUCOSE [id number] 17:59:00 Test Item Value Reference Range Interpretation Comments POC-GLUCOSE METER 128 mg/dL 70-110 H TESTED AT [place] [address] ([facility]) (test code = [facility] [place] [facility] 1538) [address] POCT-GLUCOSE [id number] 13:31:00 Test Item Value Reference Range Interpretation Comments POC-GLUCOSE METER 70 mg/dL 70-110 TESTED AT [place] [address] ([facility]) (test code = [facility] [place] [facility] [address] 1538) [id number] 13:16:00 Test Item Value Reference Range Interpretation Comments PARTIAL THROMBOPLASTIN TIME 78.3 seconds 22.5-36.0 H ([facility]) (test code = 760) POCT-GLUCOSE [id number] 12:47:00 Test Item Value Reference Range Interpretation Comments POC-GLUCOSE METER 49 mg/dL 70-110 L TESTED AT [place] [address] ([facility]) (test code = [facility] [address] 1538) POCT-GLUCOSE [id number] 09:05:00 Test Item Value Reference Range Interpretation Comments POC-GLUCOSE METER 306 mg/dL 70-110 H TESTED AT [place] [address] ([facility]) (test code = [facility] [place] 1538) [address] OCCULT BLOOD, [id number] 06:52:00 Test Item Value Reference Range Interpretation Comments FECAL OCCULT BLOOD ([facility]) (test Positive Negative A code = 618) [id number] 05:42:00 Test Item Value Reference Range Interpretation [...] 20-55 (test code = 2590) BASIC METABOLIC [id number] 03:53:00 Test Item Value Reference Range Interpretation [...] S NOT APPLICABLE FOR DIALYSIS PATIEN TS. [id number] 03:51:00 Test Item Value Reference Range Interpretation Comments PHOSPHORUS (BEAKER) (test code = 3.2 mg/dL 2.3-4.7 604) [id number] 03:51:00 Test Item Value Reference Range Interpretation Comments PARTIAL THROMBOPLASTIN TIME 122.0 seconds 22.5-36.0 H ([facility]) (test code = 760) While on warfarin.PROTHROMBIN [id number] 03:48:00 Test Item Value Reference Range Interpretation Comments PROTIME (BEAKER) (test code = 16.3 seconds 11.7-14.7 H 759) INR (BEAKER) (test code = 370) 1.3 <=5.9 RECOMMENDED COUMADIN/WARFARIN INR THERAPY RANGESSTANDARD DOSE: 2.0 - 3.0 Includes: PROPHYLAXIS forvenous thrombosis, systemic embolization; TREATMENT for venous thrombosis and/or pulmonary embolus.HIGH RISK: Target INR is 2.5-3.5 for patients with mechanical heart valves.While on warfarin.[id number] 03:44:00 Test Item Value Reference Range Interpretation Comments MAGNESIUM (BEAKER) (test code = 1.7 mg/dL 1.6-2.6 627) CBC W/PLT COUNT & AUTO [id number] 03:38:00 Test Item Value Reference Range Interpretation [...] PERCENT ([facility]AK[facility]) (test code = 2801) POCT-GLUCOSE [id number] 23:35:00 Test Item Value Reference Range Interpretation Comments POC-GLUCOSE METER 149 mg/dL 70-[address] [facility] 6720 ([facility]) (test code = [place] 1538) [address] [id number] 20:08:00 Test Item Value Reference Range Interpretation Comments PARTIAL THROMBOPLASTIN TIME 55.6 seconds 22.5-36.0 H ([facility]) (test code = 760) [id number] 15:10:00 Test Item Value Reference Range Interpretation Comments PARTIAL THROMBOPLASTIN TIME 81.4 seconds 22.5-36.0 H ([facility]) (test code = 760) POCT-GLUCOSE [id number] 11:58:00 Test Item Value Reference Range Interpretation Comments POC-GLUCOSE METER 124 mg/dL 70-[address] [facility] 6720 ([facility]) (test code = [place] 1538) [address] RAD, CHEST, 1 VIEW, NON [id number] 08:59:00Reason for exam:->s/p mvrShould this be performed at the bedside?->YesFINAL REPORT Chest one view compared to January 24 Discussion: Left IJ line, atrial appendage clip, cardiac valve replacement noted. Mild interstitial congestion. No gross effusion or pneumothorax. IMPRESSIONS: No significant change Signed: Rhea Colindres Verified Date/Time:01/29/2018 08:59:39 Reading Location: [facility] Radiology Reading Room POCT-GLUCOSE [id number] 07:41:00 Test Item Value Reference Range Interpretation Comments POC-GLUCOSE METER 113 mg/dL 70-[address] [facility] 6720 (BEAK[facility]) (test code = [place] 1538) [address] [id number] 07:23:00 Test Item Value Reference Range Interpretation Comments PARTIAL THROMBOPLASTIN TIME 89.8 seconds 22.5-36.0 H ([facility]) (test code = 760) BASIC METABOLIC [id number] 06:05:00 Test Item Value Reference Range Interpretation [...] NOT APPLICABLE FOR DIALYSIS PATIEN TS. PROTHROMBIN [id number] 05:59:00 Test Item Value Reference Range Interpretation Comments PROTIME (BEAK[facility]) (test code = 17.0 seconds 11.7-14.7 H 759) INR (BEAKER) (test code = 370) 1.4 <=5.9 RECOMMENDED COUMADIN/WARFARIN INR THERAPY RANGESSTANDARD DOSE: 2.0 - 3.0 Includes: PROPHYLAXIS forvenous thrombosis, systemic embolization; TREATMENT for venous thrombosis and/or pulmonary embolus.HIGH RISK: Target INR is 2.5-3.5 for patients with mechanical heart valves.While on warfarin.[id number] 05:56:00 Test Item Value Reference Range Interpretation Comments PHOSPHORUS ([facility]AK[facility]) (test code = 5.3 mg/dL 2.3-4.7 H 604) [id number] 05:56:00 Test Item Value Reference Range Interpretation Comments MAGNESIUM (BEAKER) (test code = 1.9 mg/dL 1.6-2.6 627) CBC W/PLT COUNT & AUTO [id number] 05:38:00 Test Item Value Reference Range Interpretation [...] 0-1 PERCENT ([facility]) (test code = 2801) [id number] 01:07:00 Test Item Value Reference Range Interpretation Comments PARTIAL THROMBOPLASTIN TIME 63.5 seconds 22.5-36.0 H ([facility]) (test code = 760) [id number] 18:24:00 Test Item Value Reference Range Interpretation Comments PARTIAL THROMBOPLASTIN TIME 56.6 seconds 22.5-36.0 H ([facility]) (test code = 760) POCT-GLUCOSE [id number] 18:14:00 Test Item Value Reference Range Interpretation Comments POC-GLUCOSE METER 101 mg/dL 70-[address] [facility] 67 ([facility]) (test code = [place] 1538) [address] [id number] 13:57:00 Test Item Value Reference Range Interpretation Comments PARTIAL THROMBOPLASTIN TIME 122.3 seconds 22.5-36.0 H ([facility]) (test code = 760) POCT-GLUCOSE [id number] 13:08:00 Test Item Value Reference Range Interpretation Comments POC-GLUCOSE METER 105 mg/dL 70-[address] [facility] 6720 (BE[facility]) (test code = [place] 1538) [address] BASIC METABOLIC [id number] 04:31:00 Test Item Value Reference Range Interpretation [...] S NOT APPLICABLE FOR DIALYSIS PATIEN TS. [id number] 04:28:00 Test Item Value Reference Range Interpretation Comments PHOSPHORUS ([facility]) (test code = 3.9 mg/dL 2.3-4.7 604) [id number] 04:28:00 Test Item Value Reference Range Interpretation Comments MAGNESIUM (BEAKER) (test code = 1.7 mg/dL 1.6-2.6 627) HEPATIC FUNCTION [id number] 04:28:00 Test Item Value Reference Range Interpretation [...] (test code = 33 U/L 6-55 347) [id number] 04:20:00 Test Item Value Reference Range Interpretation Comments PARTIAL THROMBOPLASTIN TIME 106.2 seconds 22.5-36.0 H ([facility]) (test code = 760) While on warfarin.PROTHROMBIN TIME/[id number] 04:15:00 Test Item Value Reference Range Interpretation [...] valves.While on warfarin.CBC W/PLT COUNT & AUTO [id number] 04:05:00 Test Item Value Reference Range Interpretation [...] PERCENT ([facility]) (test code = 2801) POCT-GLUCOSE [id number] 00:29:00 Test Item Value Reference Range Interpretation Comments POC-GLUCOSE METER 119 mg/dL 70-110 H TESTED AT [place] [address] ([facility]) (test code = F[place]ER Paul [facility] 1538) [address] [id number] 00:24:00 Test Item Value Reference Range Interpretation Comments PARTIAL THROMBOPLASTIN TIME 72.4 seconds 22.5-36.0 H ([facility]) (test code = 760) POCT-GLUCOSE [id number] 18:33:00 Test Item Value Reference Range Interpretation Comments POC-GLUCOSE METER 158 mg/dL 70-110 H TESTED AT [place] [address] ([facility]) (test code = FOSTER Paul [facility] 1538) [address] [id number] 18:22:00 Test Item Value Reference Range Interpretation Comments PARTIAL THROMBOPLASTIN TIME 78.6 seconds 22.5-36.0 H ([facility]) (test code = 760) POCT-GLUCOSE [id number] 12:20:00 Test Item Value Reference Range Interpretation Comments POC-GLUCOSE METER 110 mg/dL 70-110 TESTED AT [place] [address] ([facility]) (test code = [place] 1538) [address] [id number] 12:04:00 Test Item Value Reference Range Interpretation Comments PARTIAL THROMBOPLASTIN TIME 98.0 seconds 22.5-36.0 H ([facility]) (test code = 760) [id number] 04:11:00 Test Item Value Reference Range Interpretation [...] heart valves.While on warfarin.While on warfarin. PROTHROMBIN [id number] 04:10:00 Test Item Value Reference Range Interpretation Comments PROTIME ([facility]) (test code = 15.2 seconds 11.7-14.7 H 759) INR (BEAKER) (test code = 370) 1.2 <=5.9 RECOMMENDED COUMADIN/WARFARIN INR THERAPY RANGESSTANDARD DOSE: 2.0 - 3.0 Includes: PROPHYLAXIS forvenous thrombosis, systemic embolization; TREATMENT for venous thrombosis and/or pulmonary embolus.HIGH RISK: Target INR is 2.5-3.5 for patients with mechanical heart valves.BASIC METABOLIC [id number] 03:53:00 Test Item Value Reference Range Interpretation [...] PATIEN TS. CBC W/PLT COUNT & AUTO [id number] 03:50:00 Test Item Value Reference Range Interpretation [...] H PERCENT ([facility]) (test code = 2801) [id number] 03:45:00 Test Item Value Reference Range Interpretation Comments PHOSPHORUS ([facility]) (test code = 4.7 mg/dL 2.3-4.7 604) [id number] 03:45:00 Test Item Value Reference Range Interpretation Comments MAGNESIUM ([facility]) (test code = 2.0 mg/dL 1.6-2.6 627) HEPATIC FUNCTION [id number] 03:45:00 Test Item Value Reference Range Interpretation [...] (test code = 36 U/L 6-55 347) [id number] 22:16:00 Test Item Value Reference Range Interpretation Comments PARTIAL THROMBOPLASTIN TIME 60.7 seconds 22.5-36.0 H ([facility]) (test code = 760) POCT-GLUCOSE [id number] 18:32:00 Test Item Value Reference Range Interpretation Comments POC-GLUCOSE METER 125 mg/dL 70-[address] [facility] 6720 ([facility]) (test code = [place] 1538) [address] CBC (HEMOGRAM ONLY)[id number] 17:21:00 Test Item Value [...] (BEAKER) (test code = 413) BASIC METABOLIC [id number] 07:16:00 Test Item Value Reference Range Interpretation [...] S NOT APPLICABLE FOR DIALYSIS PATIEN TS. [id number] 07:13:00 Test Item Value Reference Range Interpretation Comments PHOSPHORUS ([facility]) (test code = 4.3 mg/dL 2.3-4.7 604) [id number] 07:13:00 Test Item Value Reference Range Interpretation Comments MAGNESIUM (BEAKER) (test code = 2.0 mg/dL 1.6-2.6 627) HEPATIC FUNCTION [id number] 07:13:00 Test Item Value Reference Range Interpretation [...] (test code = 37 U/L 6-55 347) [id number] 07:12:00 Test Item Value Reference Range Interpretation [...] PERCENT ([facility]) (test code = 2801) BLOOD [id number] 00:00:00 Test Item Value Reference Range Interpretation Comments CULTURE ([facility]) (test No growth in 5 days code = 1095) BLOOD [id number] 00:00:00 Test Item Value Reference Range Interpretation Comments CULTURE ([facility]) (test No growth in 5 days code = 1095) POCT-GLUCOSE [id number] 23:37:00 Test Item Value Reference Range Interpretation Comments POC-GLUCOSE METER 87 mg/dL 70-110 TESTED AT [place] [address] ([facility]) [facility] [address] 1538) [id number] 23:06:00 Test Item Value Reference Range Interpretation Comments PARTIAL THROMBOPLASTIN TIME 81.8 seconds 22.5-36.0 H ([facility]) (test code = 760) POCT-GLUCOSE [id number] 20:42:00 Test Item Value Reference Range Interpretation Comments POC-GLUCOSE METER 193 mg/dL 70-110 H TESTED AT [place] [address] ([facility]) (test code = [facility] 1538) [address] HEMOGLOBIN AND [id number] 17:40:00 Test Item Value Reference Range Interpretation Comments HEMOGLOBIN ([facility]) (test code = 8.4 GM/DL 13.7-17.5 L 410) HEMATOCRIT ([facility]) (test code = 25.4 % 40.1-51.0 L 411) [id number] 13:06:00 Test Item Value Reference Range Interpretation Comments PARTIAL THROMBOPLASTIN TIME 61.4 seconds 22.5-36.0 H ([facility]) (test code = 760) POCT-GLUCOSE [id number] 12:56:00 Test Item Value Reference Range Interpretation Comments POC-GLUCOSE METER 116 mg/dL 70-110 H TESTED AT [place] [address] ([facility]) (test code = [facility] 1538) [address] [id number] 06:43:00 Test Item Value Reference Range Interpretation [...] 37 % 20-55 (test code = 2590) [id number] 05:32:00 Test Item Value Reference Range Interpretation Comments PARTIAL THROMBOPLASTIN TIME 63.7 seconds 22.5-36.0 H ([facility]) (test code = 760) BASIC METABOLIC [id number] 05:03:00 Test Item Value Reference Range Interpretation [...] APPLICABLE FOR DIALYSIS PATIEN TS. HEPATIC FUNCTION [id number] 05:00:00 Test Item Value Reference Range Interpretation [...] (test code = 41 U/L 6-55 347) [id number] 04:40:00 Test Item Value Reference Range Interpretation [...] 0-0 (BEAKER) (test code = 413) POCT-GLUCOSE [id number] 00:30:00 Test Item Value Reference Range Interpretation Comments POC-GLUCOSE METER 112 mg/dL 70-[address] [facility] 6720 ([facility]) (test code = [place] 1538) [address] CBC W/PLT COUNT & AUTO [id number] 19:16:00 Test Item Value Reference Range Interpretation [...] PERCENT (BEAKER) (test code = 2801) POCT-GLUCOSE [id number] 18:27:00 Test Item Value Reference Range Interpretation Comments POC-GLUCOSE METER 102 mg/dL 70-[address] [facility] 67 ([facility]) (test code = [facility] 1538) [address] POCT-GLUCOSE [id number] 13:01:00 Test Item Value Reference Range Interpretation Comments POC-GLUCOSE METER 119 mg/dL 70-110 H TESTED AT [place] [address] ([facility]) (test code = [facility] 1538) [address] RAD, CHEST, 1 VIEW, NON [id number] 10:59:00Reason for exam:->ptxShould this be performed at [...] MDReport Verified Date/Time: 01/24/2018 10:59:29 Reading Location: [facility] Diagnostic Imaging Reading Room - [place] [address] BRONCHIAL CULTURE + GRAM STAIN 2018-01-24 08:53:00 Test Item Value Reference Range Interpretation Comments CULTURE (BEAKER) 2+ Normal respiratory (test code = 1095) pete present GRAM STAIN RESULT 4+ White blood cells ([facility]) (test code = seen 1123) GRAM STAIN RESULT No organisms seen (BEAKER) (test code = 99310) POCT-GLUCOSE [id number] 06:28:00 Test Item Value Reference Range Interpretation Comments POC-GLUCOSE METER 119 mg/dL 70-[address] [facility] 6720 ([facility]) (test code = [place] 1538) [address] BASIC METABOLIC [id number] 04:41:00 Test Item Value Reference Range Interpretation [...] WBC 0-0 (BEAKER) (test code = 413) [id number] 04:21:00 Test Item Value Reference Range Interpretation Comments MAGNESIUM (BEAKER) (test code = 2.0 mg/dL 1.6-2.6 627) HEPATIC FUNCTION [id number] 04:21:00 Test Item Value Reference Range Interpretation [...] = 36 U/L 6-55 347) Specimen slightly [id number] 04:13:00 Test Item Value Reference Range Interpretation Comments PARTIAL THROMBOPLASTIN TIME 72.1 seconds 22.5-36.0 H ([facility]) (test code = 760) BLOOD GAS, [id number] 04:13:00 Test Item Value Reference Range Interpretation [...] (test code = 1819) 100.0 % POCT-GLUCOSE [id number] 00:08:00 Test Item Value Reference Range Interpretation Comments POC-GLUCOSE METER 150 mg/dL 70-110 H TESTED AT [place] [address] ([facility]) ([facility] [place] 1538) [address] POCT-GLUCOSE [id number] 18:45:00 Test Item Value Reference Range Interpretation Comments POC-GLUCOSE METER 162 mg/dL 70-110 H TESTED AT [place] [address] ([facility]) ([facility] = [facility] 1538) [address] POCT-GLUCOSE [id number] 13:14:00 Test Item Value Reference Range Interpretation Comments POC-GLUCOSE METER 176 mg/dL 70-110 H TESTED AT [place] [address] ([facility]) (test code = [facility] [place] 1538) [address] POCT-GLUCOSE [id number] 10:44:00 Test Item Value Reference Range Interpretation Comments POC-GLUCOSE METER 146 mg/dL 70-110 H TESTED AT [place] [address] ([facility]) (test code = [facility] [place] 1538) [address] BLOOD GAS, [id number] 10:32:00 Test Item Value Reference Range Interpretation [...] 40.0 % RAD, CHEST, 1 VIEW, NON [id number] 09:14:00Reason for exam:->ptxShould this be performed at [...] MDReport Verified Date/Time: 01/23/2018 09:14:48 Reading Location: [facility] Radiology Reading Room Electronically sign ed by: KYLE ROME M.D. on 01/23/2018 09:14 AMBLOOD [id number] 08:09:00 Test Item Value Reference Range Interpretation Comments CULTURE (BEAKER) A From Aerobi c Bottle (test code = Only Lactobacil park 1095) species GRAM STAIN From aerobic RESULT (BEAKER) bottle only: gram (test code = positive rods 1123) NOT DETECTEDPanel is negative for [employer] BCID-detectable organisms. Please refer to traditional culture and sensitivity results as they become available.Other organisms and resistance markers not contained in this PCR panel cannot be excluded and follow-up of traditional culture results is required. This sample was tested at the [facility] Clinical Microbiology Laboratory using the [employer] FilmArray Blood Culture ID Panel. This test is FDA cleared for in vitro diagnostic use and has been verified and approved by the [facility] Clinical Microbiology laboratory for clinical use. Reference Range: Not DetectedBLOOD GAS, [id number] 04:45:00 Test Item Value Reference Range Interpretation [...] code = 1819) 40.0 % BASIC METABOLIC [id number] 04:39:00 Test Item Value Reference Range Interpretation [...] APPLICABLE FOR DIALYSIS PATIEN TS. Specimen slightly [id number] 04:35:00 Test Item Value Reference Range Interpretation Comments MAGNESIUM (BEAKER) (test code = 1.8 mg/dL 1.6-2.6 627) HEPATIC FUNCTION [id number] 04:35:00 Test Item Value Reference Range Interpretation [...] = 40 U/L 6-55 347) Specimen slightly [id number] 04:18:00 Test Item Value Reference Range Interpretation [...] WBC 0-0 (test code = 413) POCT-GLUCOSE [id number] 00:52:00 Test Item Value Reference Range Interpretation Comments POC-GLUCOSE METER 145 mg/dL 70-[address] [facility] 6720 ([facility]) (test code = [place] 1538) [address] BLOOD [id number] 00:00:00 Test Item Value Reference Range Interpretation Comments CULTURE (BEAKER) (test No growth in 5 days code = 1095) POCT-GLUCOSE [id number] 18:17:00 Test Item Value Reference Range Interpretation Comments POC-GLUCOSE METER 97 mg/dL 70-110 TESTED AT [place] [address] (BEAKER) (test code = FOSTER Paul [facility] [address] 1538) POCT-GLUCOSE [id number] 13:26:00 Test Item Value Reference Range Interpretation Comments POC-GLUCOSE METER 138 mg/dL 70-110 H TESTED AT [place] [address] (BEAKER) (test code = [facility] [place] [facility] 1538) [address] BLOOD GAS, [id number] 10:32:00 Test Item Value Reference Range Interpretation [...] (test code = 1819) 40.0 % POCT-GLUCOSE [id number] 06:21:00 Test Item Value Reference Range Interpretation Comments POC-GLUCOSE METER 138 mg/dL 70-110 H TESTED AT [place] [address] (BEAKER) (test code = [facility] 1538) [address] BASIC METABOLIC [id number] 04:25:00 Test Item Value Reference Range Interpretation [...] APPLICABLE FOR DIALYSIS PATIEN TS. Specimen slightly [id number] 04:24:00 Test Item Value Reference Range Interpretation Comments MAGNESIUM (BEAKER) (test code = 2.1 mg/dL 1.6-2.6 627) HEPATIC FUNCTION [id number] 04:24:00 Test Item Value Reference Range Interpretation [...] /100 WBC 0-0 (test code = 413) [id number] 04:07:00 Test Item Value Reference Range Interpretation Comments PARTIAL THROMBOPLASTIN TIME 80.2 seconds 22.5-36.0 H (BEAKER) (test code = 760) BLOOD GAS, [id number] 04:06:00 Test Item Value Reference Range Interpretation [...] 40.0 % RAD, CHEST, 1 VIEW, NON [id number] 03:32:00Reason for exam:->ptxShould this be performed at [...] Muniz Verified Date/Time: 01/22/2018 03:32:38 Reading Location: [address] Body Reading Room POCT-GLUCOSE [id number] 00:43:00 Test Item Value Reference Range Interpretation Comments POC-GLUCOSE METER 102 mg/dL 70-110 TESTED AT [place] [address] ([facility]) (test code = FOSTER Paul [facility] 1538) [id number] 17:31:00 Test Item Value Reference Range Interpretation Comments PARTIAL THROMBOPLASTIN TIME 65.0 seconds 22.5-36.0 H ([facility]) (test code = 760) POCT-GLUCOSE [id number] 17:24:00 Test Item Value Reference Range Interpretation Comments POC-GLUCOSE METER 171 mg/dL 70-[address] [facility] 67 ([facility]) (test code = FOSTER Paul [facility] 1538) [address] POCT-GLUCOSE [id number] 13:01:00 Test Item Value Reference Range Interpretation Comments POC-GLUCOSE METER 144 mg/dL 70-110 H TESTED AT [place] [address] ([facility]) (test code = FOSTER Paul [facility] 1538) [address] [id number] 11:12:00 Test Item Value Reference Range Interpretation Comments PARTIAL THROMBOPLASTIN TIME 67.9 seconds 22.5-36.0 H ([facility]) (test code = 760) RAD, CHEST, 1 VIEW, NON [id number] 08:01:00Reason for exam:->ptxShould this be performed at [...] MDReport Verified Date/Time: 01/21/2018 08:01:07 Reading Location: [facility] Radiology Reading Room POCT-GLUCOSE [id number] 06:50:00 Test Item Value Reference Range Interpretation Comments POC-GLUCOSE METER 149 mg/dL 70-[address] [facility] 6720 (BEAKER) (test code = FOSTER Paul [place] 1538) [address] CBC (HEMOGRAM ONLY)2018-01-21 04:20:00 Test Item Value [...] /100 WBC 0-0 (test code = 413) [id number] 04:03:00 Test Item Value Reference Range Interpretation Comments PARTIAL THROMBOPLASTIN TIME 51.2 seconds 22.5-36.0 H (BEAKER) (test code = 760) BASIC METABOLIC [id number] 04:01:00 Test Item Value Reference Range Interpretation [...] APPLICABLE FOR DIALYSIS PATIEN TS. Specimen moderately [id number] 03:59:00 Test Item Value Reference Range Interpretation Comments MAGNESIUM (BEAKER) (test code = 2.0 mg/dL 1.6-2.6 627) HEPATIC FUNCTION [id number] 03:59:00 Test Item Value Reference Range Interpretation [...] U/L 6-55 347) Specimen moderately ictericVANCOMYCIN LEVEL, [id number] 03:57:00 Test Item Value Reference Range Interpretation Comments VANCOMYCIN RANDOM (BEAKER) (test 18.3 ug/mL code = 523) Reference Range: No NormalsOXYGEN SATURATION, [id number] 03:32:00 Test Item Value Reference Range Interpretation Comments O2 SATURATION (MEASURED) (BEAKER) 86.3 % (test code = 1455) BLOOD GAS, [id number] 03:30:00 Test Item Value Reference Range Interpretation [...] (test code = 1819) 40.0 % POCT-GLUCOSE [id number] 23:43:00 Test Item Value Reference Range Interpretation Comments POC-GLUCOSE METER 143 mg/dL 70-110 H TESTED AT [place] [address] ([facility]) (test code = FOSTER [place] 1538) [address] BLOOD [id number] 18:00:00 Test Item Value Reference Range Interpretation Comments CULTURE (BEAKER) (test No growth in 5 days code = 1095) BLOOD [id number] 18:00:00 Test Item Value Reference Range Interpretation Comments CULTURE (BEAKER) (test No growth in 5 days code = 1095) POCT-GLUCOSE [id number] 16:32:00 Test Item Value Reference Range Interpretation Comments POC-GLUCOSE METER 185 mg/dL 70-[address] [facility] 6720 ([facility]) (test code = FOSTER Paul [facility] 1538) [address] MISCELLANEOUS LAB [id number] 15:04:00 Test Item Value Reference Range Interpretation Comments SCAN RESULT (test code = 9492253) Result comments: NOT DETECTED Panel is negative for BioFire BCID-detectable organisms. Please refer to traditional culture and sensitivity results as they become available. Other organisms and resistance markers not contained in this PCR panel cannot be excluded and follow-up of traditional culture results is required. This sample was tested at the [facility] Clinical Microbiology Laboratory using the [employer] FilmArray Blood Culture ID Panel. This test is FDA cleared for in vitro diagnostic use and hasbeen verified and approved by the [facility] Clinical Microbiology laboratory for clinical use. ReferenceRange: Not Detected POCT-GLUCOSE [id number] 12:25:00 Test Item Value Reference Range Interpretation Comments POC-GLUCOSE METER 116 mg/dL 70-110 H TESTED AT [place] [address] ([facility]) (test code = FOSTER Paul [facility] 1538) [address] RAD, CHEST, 1 VIEW, NON [id number] 06:38:00Reason for exam:->pl effusionShould this be performed [...] MDReport Verified Date/Time: 01/20/2018 06:38:33 Reading Location: [facility] [id number] CT Body Reading Room POCT-GLUCOSE [id number] 05:54:00 Test Item Value Reference Range Interpretation Comments POC-GLUCOSE METER 231 mg/dL 70-[address] [facility] 67 ([facility]) (test code = FOSTER Paul [facility] 1538) [address] VANCOMYCIN LEVEL, [id number] 04:23:00 Test Item Value Reference Range Interpretation Comments VANCOMYCIN RANDOM ([facility]) (test 25.8 ug/mL code = 523) Reference Range: No [id number] 04:17:00 Test Item Value Reference Range Interpretation Comments MAGNESIUM (BEAKER) (test code = 2.0 mg/dL 1.6-2.6 627) HEPATIC FUNCTION [id number] 04:17:00 Test Item Value Reference Range Interpretation [...] 6-55 H 347) Specimen moderately ictericBASIC METABOLIC [id number] 04:17:00 Test Item Value Reference Range Interpretation [...] APPLICABLE FOR DIALYSIS PATIEN TS. Specimen moderately [id number] 04:05:00 Test Item Value Reference Range Interpretation Comments PARTIAL THROMBOPLASTIN TIME 69.7 seconds 22.5-36.0 H (BEAKER) (test code = 760) CBC W/PLT COUNT & AUTO [id number] 03:49:00 Test Item Value Reference Range Interpretation [...] IMMATURE GRANULOCYTES-RELATIVE 3 % 0-1 H PERCENT ([facility]) (test code = 2801) OXYGEN SATURATION, [id number] 03:48:00 Test Item Value Reference Range Interpretation Comments O2 SATURATION (MEASURED) ([facility]) 84.1 % (test code = 1455) POCT-GLUCOSE [id number] 23:14:00 Test Item Value Reference Range Interpretation Comments POC-GLUCOSE METER 248 mg/dL 70-110 H TESTED AT [place] [address] ([facility]) (test code = [facility] 1538) [address] POCT-GLUCOSE [id number] 18:56:00 Test Item Value Reference Range Interpretation Comments POC-GLUCOSE METER 213 mg/dL 70-110 H TESTED AT [place] [address] ([facility]) (test code = [facility] 1538) [address] POCT-GLUCOSE [id number] 14:06:00 Test Item Value Reference Range Interpretation Comments POC-GLUCOSE METER 210 mg/dL 70-110 H TESTED AT [place] [address] ([facility]) (test code = [facility] 1538) [address] SPUTUM CULTURE + GRAM [id number] 13:45:00 Test Item Value Reference Range Interpretation Comments CULTURE (AKER) 4+ Normal respiratory (test code = 1095) pete present GRAM STAIN RESULT 4+ WBCs (BEAKER) (test code = 1123) GRAM STAIN RESULT 0-5 epithelial cells (BEAKER) (test code = 00694) GRAM STAIN RESULT 3+ gram negative rods (BEAKER) (test code = 28212) GRAM STAIN RESULT 2+ gram positive cocci (BEAKER) (test code = in pairs and clusters 605010) [id number] 12:37:00 Test Item Value Reference Range Interpretation Comments PARTIAL THROMBOPLASTIN TIME 74.3 seconds 22.5-36.0 H ([facility]) (test code = 760) CBC W/PLT COUNT & AUTO [id number] 10:52:00 Test Item Value Reference Range Interpretation [...] H (test code = 413) VANCOMYCIN LEVEL, [id number] 05:41:00 Test Item Value Reference Range Interpretation Comments VANCOMYCIN RANDOM (BEAKER) (test 27.9 ug/mL code = 523) Reference Range: No NormalsBASIC METABOLIC [id number] 05:39:00 Test Item Value Reference Range Interpretation [...] APPLICABLE FOR DIALYSIS PATIEN TS. Specimen moderately [id number] 05:36:00 Test Item Value Reference Range Interpretation Comments MAGNESIUM (BEAKER) (test code = 2.0 mg/dL 1.6-2.6 627) [id number] 05:36:00 Test Item Value Reference Range Interpretation Comments PHOSPHORUS (BEAKER) (test code = 3.9 mg/dL 2.3-4.7 604) HEPATIC FUNCTION [id number] 05:36:00 Test Item Value Reference Range Interpretation [...] 6-55 H 347) Specimen moderately ictericOXYGEN SATURATION, [id number] 05:33:00 Test Item Value Reference Range Interpretation [...] WBC 0-0 H (test code = 413) [id number] 05:24:00 Test Item Value Reference Range Interpretation Comments PARTIAL THROMBOPLASTIN TIME 68.1 seconds 22.5-36.0 H (BEAKER) (test code = 760) RAD, CHEST, 1 VIEW, NON [id number] 04:41:00Reason for exam:->pl effusionShould this be performed at the bedside?->YesFINAL REPORT CLINICAL INDICATION: Support lines. Comparison: 01/18/2018 The ca rdiomediastinal contours are stable. Central pulmonary vascular congestion and bilateral parenchymalopacities are unchanged. There is no pneumothorax. Support lines are stable. Signed: Kellen Parra MDReport Verified Date/Time: 01/19/2018 04:41:27 Reading Location: [address] Reading Room APTT 2018-01-19 00:38:00 Test Item Value Reference Range Interpretation Comments PARTIAL THROMBOPLASTIN TIME 45.5 seconds 22.5-36.0 H (BEAKER) (test code = 760) POCT-GLUCOSE [id number] 00:21:00 Test Item Value Reference Range Interpretation Comments POC-GLUCOSE METER 189 mg/dL 70-[address] [facility] 67 ([facility]) (test code = FOSTER Paul [facility] 1538) [address] POCT-GLUCOSE [id number] 23:34:00 Test Item Value Reference Range Interpretation Comments POC-GLUCOSE METER 162 mg/dL 70-110 H TESTED AT [place] [address] ([facility]) (test code = FOSTER Paul [facility] 1538) [address] POCT-GLUCOSE [id number] 18:09:00 Test Item Value Reference Range Interpretation Comments POC-GLUCOSE METER 172 mg/dL 70-110 H TESTED AT [place] [address] ([facility]) (test code = FOSTER Paul [facility] 1538) [address] RAD, ABDOMEN/KUB, 1 VIEW [id number] 17:36:00Reason for exam:->ileusShould this be performed at the bedside?->YesFINAL REPORT Comparison: 01/17/2018 TECHNIQUE: Frontal image of the abdomen FINDINGS: There is a nonspecific bowel gas pattern. Tip of nasogastric projects in the distal stomach. No gross free intraperitoneal air. No acute skeletal abnormality. Signed: Kyle Rome Verified Date/Time: 01/18/2018 17:36:02 Reading Location: [address] Transitional Reading Room [id number] 17:10:00 Test Item Value Reference Range Interpretation Comments PARTIAL THROMBOPLASTIN TIME 27.8 seconds 22.5-36.0 ([facility]) (test code = 760) Prior to initiating heparinPOCT-GLUCOSE [id number] 15:22:00 Test Item Value Reference Range Interpretation Comments POC-GLUCOSE METER 126 mg/dL 70-110 H TESTED AT [place] [address] ([facility]) (test code = FOSTER Paul [facility] 1538) [address] [id number] 13:02:00 Test Item Value Reference Range Interpretation Comments PHOSPHORUS ([facility]) (test code = 3.8 mg/dL 2.3-4.7 604) BASIC METABOLIC [id number] 13:02:00 Test Item Value Reference Range Interpretation [...] FOR DIALYSIS PATIEN TS. Specimen moderately ictericPOCT-GLUCOSE [id number] 12:11:00 Test Item Value Reference Range Interpretation Comments POC-GLUCOSE METER 113 mg/dL 70-[address] [facility] 6720 (AKER) (test code = FOSTER Paul MIRELL[place] 1538) [address] CBC W/PLT COUNT & AUTO [id number] 12:03:00 Test Item Value Reference Range Interpretation [...] = 413) RAD, CHEST, 1 VIEW, NON [id number] 09:44:00Reason for exam:->pl effusionShould this be performed [...] MDReport Verified Date/Time: 01/18/2018 09:44:26 Reading Location: [address] Transitional Reading Room SPUTUM CULTURE + GRAM [id number] 08:09:00 Test Item Value Reference Range Interpretation Comments CULTURE (BEAKER) 3+ Normal respiratory (test code = 1095) pete present GRAM STAIN RESULT 4+ WBCs (BEAKER) (test code = 1123) GRAM STAIN RESULT 0-5 epithelial cells (BEAKER) (test code = 09120) GRAM STAIN RESULT No organisms seen (BEAKER) (test code = 89501) POCT-GLUCOSE [id number] 07:52:00 Test Item Value Reference Range Interpretation Comments POC-GLUCOSE METER 146 mg/dL 70-[address] [facility] 6720 (BEAKER) (test code = FOSTER [place] 1538) [address] POCT-GLUCOSE [id number] 06:30:00 Test Item Value Reference Range Interpretation Comments POC-GLUCOSE METER 135 mg/dL 70-[address] [facility] 6720 (BEAKER) (test code = FOSTER Paul [place] 1538) [address] POCT-GLUCOSE [id number] 06:30:00 Test Item Value Reference Range Interpretation Comments POC-GLUCOSE METER 130 mg/dL 70-[address] [facility] 6720 (BEAKER) (test code = [place]ER [place] 1538) [address] [id number] 03:56:00 Test Item Value Reference Range Interpretation Comments PHOSPHORUS (BEAKER) (test code = 3.1 mg/dL 2.3-4.7 604) [id number] 03:56:00 Test Item Value Reference Range Interpretation Comments MAGNESIUM (BEAKER) (test code = 2.0 mg/dL 1.6-2.6 627) HEPATIC FUNCTION [id number] 03:56:00 Test Item Value Reference Range Interpretation [...] 6-55 H 347) Specimen moderately ictericVANCOMYCIN LEVEL, [id number] 03:53:00 Test Item Value Reference Range Interpretation Comments VANCOMYCIN RANDOM (BEAKER) (test 18.0 ug/mL code = 523) Reference Range: No [id number] 03:48:00 Test Item Value Reference Range Interpretation Comments CALCIUM (BEAKER) (test code = 697) 8.1 mg/dL 8.4-10.2 L CALCIUM, [id number] 03:34:00 Test Item Value Reference Range Interpretation Comments CALCIUM IONIZED (BEAKER) (test 1.06 mmol/L 1.12-1.27 L code = 698) PH, BLOOD ([facility]) (test code = 7.38 1810) OXYGEN SATURATION, [id number] 03:33:00 Test Item Value Reference Range Interpretation Comments O2 SATURATION (MEASURED) ([facility]) 85.8 % (test code = 1455) POCT-GLUCOSE [id number] 03:26:00 Test Item Value Reference Range Interpretation Comments POC-GLUCOSE METER 144 mg/dL 70-110 H TESTED AT [place] [address] ([facility]) (test code = FOSTER Paul [facility] 1538) [address] POCT-GLUCOSE [id number] 03:26:00 Test Item Value Reference Range Interpretation Comments POC-GLUCOSE METER 163 mg/dL 70-110 H TESTED AT [place] [address] ([facility]) (test code = [facility] Humberto [facility] 1538) [address] POCT-GLUCOSE [id number] 01:04:00 Test Item Value Reference Range Interpretation Comments POC-GLUCOSE METER 159 mg/dL 70-110 H TESTED AT [place] [address] ([facility]) (test code = [facility] 1538) [address] POCT-GLUCOSE [id number] 00:12:00 Test Item Value Reference Range Interpretation Comments POC-GLUCOSE METER 132 mg/dL 70-110 H TESTED AT [place] [address] ([facility]) (test code = [facility] 1538) [address] LACTIC ACID, ARTERIAL, WHOLE [id number] 23:54:00 Test Item Value Reference Range Interpretation Comments LACTATE BLOOD ARTERIAL (2) 0.7 mmol/L 0.5-2.2 ([facility]) (test code = 2874) Effective 01/04/2016: Units/Reference Range ChangeNew: 0.5-2.2 mmol/L Previous: 5-20 mg/dLSpecimen moderately ictericPOTASSIUM-STAT [id number] 23:30:00 Test Item Value Reference Range Interpretation Comments POTASSIUM ([facility]) (test code = 4.0 meq/L 3.6-5.5 379) BLOOD GAS, [id number] 23:30:00 Test Item Value Reference Range Interpretation Comments PH ARTERIAL ([facility]) (test code = 7.45 7.35-7.45 383) PCO2 ARTERIAL ([facility]) (test code 42 mmHg 35-45 = [...] code = 1819) 50.0 % SODIUM NA-STAT [id number] 23:30:00 Test Item Value Reference Range Interpretation Comments SODIUM (BEAKER) (test code = 381) 134 meq/L 135-148 L GLUCOSE-STAT [id number] 23:30:00 Test Item Value Reference Range Interpretation Comments GLUCOSE RANDOM (BEAKER) (test code 138 mg/dL 70-110 H = 652) HGB/HCT (H&H) - STAT [id number] 23:30:00 Test Item Value Reference Range Interpretation Comments HEMOGLOBIN (BEAKER) (test code = 9.0 g/dL 13.0-16.8 L 410) HEMATOCRIT (BEAKER) (test code = 26.0 % 40.0-50.0 L 411) CALCIUM, [id number] 23:30:00 Test Item Value Reference Range Interpretation Comments CALCIUM IONIZED (BEAKER) (test 1.04 mmol/L 1.12-1.27 L code = 698) PH, BLOOD (BEAKER) (test code = 7.48 1810) OXYGEN SATURATION, [id number] 23:28:00 Test Item Value Reference Range Interpretation Comments O2 SATURATION (MEASURED) (BEAKER) 82.0 % (test code = 1455) POCT-GLUCOSE [id number] 21:35:00 Test Item Value Reference Range Interpretation Comments POC-GLUCOSE METER 99 mg/dL 70-[address] [facility] 6720 (BEAKER) (test code = [place] [address] 1538) POCT-GLUCOSE [id number] 21:35:00 Test Item Value Reference Range Interpretation Comments POC-GLUCOSE METER 111 mg/dL 70-[address] [facility] 6720 (BEAKER) (test code = FOSTER [place] 1538) [address] RAD, CHEST, 1 VIEW, NON [id number] 17:08:00Reason for exam:->LIJ placment CVCShould this be [...] [place] Verified Date/Time: 01/17/2018 17:08:24 Reading Location: [facility] Radiology Reading Room GLUCOSE-STAT [id number] 16:33:00 Test Item Value Reference Range Interpretation Comments GLUCOSE RANDOM (BEAKER) (test code 147 mg/dL 70-110 H = 652) POTASSIUM-STAT [id number] 16:32:00 Test Item Value Reference Range Interpretation Comments POTASSIUM (BEAKER) (test code = 4.7 meq/L 3.6-5.5 379) [id number] 15:03:00 Test Item Value Reference Range Interpretation Comments PROCALCITONIN (BEAKER) (test code 5.33 ng/mL <0.05 H = 3036) SEPSIS RISK (ng/mL)Low: 0.05-0.50Intermediate: 0.51-2.00High: >=2.01CT BRAIN WITHOUT IV CONTRAST - [id number] 13:50:00Reason for exam:->altered mental statusFINAL REPORT CT [...] should be excluded clinically. Signed: Dung Granda MDRthe [facility] of living Verified Date/Time: 01/17/2018 13:50:42 Reading Location: [facility] Radiology Reading Room CALCIUM, [id number] 12:36:00 Test Item Value Reference Range Interpretation Comments CALCIUM IONIZED (BEAKER) (test 1.09 mmol/L 1.12-1.27 L code = 698) PH, BLOOD (BEAKER) (test code = 7.36 1810) GLUCOSE-STAT [id number] 12:36:00 Test Item Value Reference Range Interpretation Comments GLUCOSE RANDOM (BEAKER) (test code 147 mg/dL 70-110 H = 652) POTASSIUM-STAT [id number] 12:36:00 Test Item Value Reference Range Interpretation Comments POTASSIUM (BEAKER) (test code = 4.7 meq/L 3.6-5.5 379) RAD, ABDOMEN/KUB, 1 VIEW [id number] 08:42:00Reason for exam:->ileusShould this be performed at [...] MDReport Verified Date/Time: 01/17/2018 08:42:09 Reading Location: [facility] Radiology Reading Room CBC W/PLT COUNT & AUTO [id number] 08:18:00 Test Item Value Reference Range Interpretation [...] (test code = 413) HEPARIN ASSAY - [id number] 08:07:00 Test Item Value Reference Range Interpretation Comments UNFRACTIONATED HEPARIN-ANTI 10A < u/ml 0.30-0.70 L (BEAKER) (test code = 1606) Recommendations for Monitoring Unfractionated Heparin Therapeutic Range: 0.3- 0.7 u/mL with continuous IV infusionPOCT-GLUCOSE [id number] 06:09:00 Test Item Value Reference Range Interpretation Comments POC-GLUCOSE METER 143 mg/dL 70-[address] [facility] 6720 (BEAKER) (test code = FOSTER [place] 1538) [address] RAD, CHEST, 1 VIEW, NON [id number] 04:43:00Reason for exam:->acute respiratory insufficiencyShould this be [...] MDReport Verified Date/Time: 01/17/2018 04:43:34 Reading Location: [facility] I426WNW Body Reading Room OXYGEN SATURATION, [id number] 04:13:00 Test Item Value Reference Range Interpretation Comments O2 SATURATION (MEASURED) (BEAKER) 85.7 % (test code = 1455) [id number] 04:06:00 Test Item Value Reference Range Interpretation Comments PHOSPHORUS (BEAKER) (test code = 3.1 mg/dL 2.3-4.7 604) [id number] 04:06:00 Test Item Value Reference Range Interpretation Comments MAGNESIUM (BEAKER) (test code = 2.1 mg/dL 1.6-2.6 627) COMPREHENSIVE METABOLIC [id number] 04:06:00 Test Item Value Reference Range Interpretation [...] DIALYSIS PATIEN TS. Specimen moderately ictericHEPATIC FUNCTION [id number] 04:06:00 Test Item Value Reference Range Interpretation [...] 347) Specimen moderately ictericLACTIC ACID, ARTERIAL, WHOLE [id number] 03:59:00 Test Item Value Reference Range Interpretation Comments LACTATE BLOOD 0.5 mmol/L 0.5-2.2 Specimen sligh tly ARTERIAL (2) (BEAKER) hemoly zed (test code = 2874) Effective 01/04/2016: Units/Reference Range ChangeNew: 0.5-2.2 mmol/L Previous: 5-20 mg/dLSpecimen moderately ictericBLOOD GAS, [id number] 03:58:00 Test Item Value Reference Range Interpretation [...] (test code = 1819) 40.0 % CALCIUM, [id number] 03:58:00 Test Item Value Reference Range Interpretation Comments CALCIUM IONIZED (BEAKER) (test 1.14 mmol/L 1.12-1.27 code = 698) PH, BLOOD (BEAKER) (test code = 7.41 1810) POCT-GLUCOSE [id number] 02:41:00 Test Item Value Reference Range Interpretation Comments POC-GLUCOSE METER 144 mg/dL 70-110 H TESTED AT [place] [address] ([facility]) (test code = FOSTER Paul [facility] 1538) [address] POCT-GLUCOSE [id number] 00:30:00 Test Item Value Reference Range Interpretation Comments POC-GLUCOSE METER 171 mg/dL 70-[address] [facility] 6720 ([facility]) (test code = FOSTER Paul [facility] 1538) [address] POTASSIUM-STAT [id number] 00:08:00 Test Item Value Reference Range Interpretation Comments POTASSIUM (BEAKER) (test code = 4.5 meq/L 3.6-5.5 379) POCT-GLUCOSE [id number] 23:30:00 Test Item Value Reference Range Interpretation Comments POC-GLUCOSE METER 159 mg/dL 70-[address] [facility] 67 [facility] (test code = [facility] 1538) [address] POCT-GLUCOSE [id number] 21:08:00 Test Item Value Reference Range Interpretation Comments POC-GLUCOSE METER 194 mg/dL 70-110 H TESTED AT [place] [address] (BEAKER) (test code = [facility] 1538) [address] POCT-GLUCOSE [id number] 21:08:00 Test Item Value Reference Range Interpretation Comments POC-GLUCOSE METER 230 mg/dL 70-110 H TESTED AT [place] [address] (BEAKER) (test code = [facility] 1538) [address] CALCIUM, [id number] 19:23:00 Test Item Value Reference Range Interpretation Comments CALCIUM IONIZED (BEAKER) (test 1.14 mmol/L 1.12-1.27 code = 698) PH, BLOOD (BEAKER) (test code = 7.36 1810) POTASSIUM-STAT [id number] 19:23:00 Test Item Value Reference Range Interpretation Comments POTASSIUM (BEAKER) (test code = 5.1 meq/L 3.6-5.5 379) [id number] 17:27:00 Test Item Value Reference Range Interpretation Comments PHOSPHORUS (BEAKER) (test code = 2.2 mg/dL 2.3-4.7 L 604) [id number] 17:27:00 Test Item Value Reference Range Interpretation Comments MAGNESIUM (BEAKER) (test code = 2.1 mg/dL 1.6-2.6 627) PH, [id number] 17:03:00 Test Item Value Reference Range Interpretation Comments PH ARTERIAL (BEAKER) (test code = 383) 7.39 7.35-7.45 POCT-GLUCOSE [id number] 16:43:00 Test Item Value Reference Range Interpretation Comments POC-GLUCOSE METER 95 mg/dL 70-110 TESTED AT [place] [address] (BEAKER) (test code = [facility] [address] 1538) POCT-GLUCOSE [id number] 14:41:00 Test Item Value Reference Range Interpretation Comments POC-GLUCOSE METER 134 mg/dL 70-[address] [facility] 67 ([facility]) (test code = FOSTER Paul [facility] 1538) [address] RAD, ABDOMEN/KUB, 1 VIEW [id number] 13:16:00Reason for exam:- >constipationShould this be performed [...] [place] Verified Date/Time: 01/16/2018 13:16:27 Reading Location: [facility] Reading Room Electronically signed by: KAY WALTER on01/16/2018 01:16 PMCALCIUM, [id number] 12:38:00 Test Item Value Reference Range Interpretation Comments CALCIUM IONIZED ([facility]) (test 1.14 mmol/L 1.12-1.27 code = 698) PH, BLOOD ([facility]) (test code = 7.40 1810) POCT-GLUCOSE [id number] 12:29:00 Test Item Value Reference Range Interpretation Comments POC-GLUCOSE METER 127 mg/dL 70-[address] [facility] 6720 ([facility]) (test code = [facility] 1538) [id number] POCT-GLUCOSE [id number] 10:34:00 Test Item Value Reference Range Interpretation Comments POC-GLUCOSE METER 130 mg/dL 70-[address] [facility] 6720 ([facility]) (test code = MARIA GSC Humberto [facility] 1538) [address] POCT-GLUCOSE [id number] 09:10:00 Test Item Value Reference Range Interpretation Comments POC-GLUCOSE METER 151 mg/dL 70-110 H [place]ED [place] [address] ([facility]) (test code = [facility] 1538) [address] HEPARIN ASSAY - [id number] 09:00:00 Test Item Value Reference Range Interpretation [...] H (test code = 413) OXYGEN SATURATION, [id number] 08:30:00 Test Item Value Reference Range Interpretation Comments O2 SATURATION (MEASURED) (BEAKER) 87.1 % (test code = 1455) RAD, CHEST, 1 VIEW, NON [id number] 08:11:00Reason for exam:->acute respiratory insufficiencyShould this be performed at the bedside?->YesFINAL REPORT CLINICAL HISTORY: acute respiratory insufficiency TECHNIQUE: 1 view of the chest. COMPARISON: 01/15/2018 IMPRESSION: The [place] catheter has been removed. The supporting lines and tubes are otherwise unchanged. There is no pneumothorax. Mild bilateral perihilar lung opacities have decreased. The cardiomediastinal silhouette is magnified by technique with sternotomy wires. Signed: Lorna Slade Verified Date/Time: 01/16/2018 08:11:02 Reading Location: [facility] Radiology Reading Room POCT- GLUCOSE [id number] 06:43:00 Test Item Value Reference Range Interpretation Comments POC-GLUCOSE METER 107 mg/dL 70-110 TESTED AT [place] [address] ([facility]) (test code = FOSTER VU [place] 1538) [address] U/S, ABDOMINAL, [id number] 05:25:00Abdomen limited area? Add comment if clarification [...] MDReport Verified Date/Time: 01/16/2018 05:25:06 Reading Location: [facility] B1 C013Y CT Body Reading Room IC ACID, ARTERIAL, WHOLE [id number] 04:06:00 Test Item Value Reference Range Interpretation Comments LACTATE BLOOD ARTERIAL (2) 0.6 mmol/L 0.5-2.2 (BEAKER) (test code = 2874) Effective 01/04/2016: Units/Reference Range ChangeNew: 0.5-2.2 mmol/L Previous: 5-20 mg/dLSpecimen moderately [id number] 04:00:00 Test Item Value Reference Range Interpretation Comments PHOSPHORUS (BEAKER) (test code = 2.2 mg/dL 2.3-4.7 L 604) [id number] 04:00:00 Test Item Value Reference Range Interpretation Comments MAGNESIUM (BEAKER) (test code = 2.0 mg/dL 1.6-2.6 627) [id number] 04:00:00 Test Item Value Reference Range Interpretation Comments CALCIUM (BEAKER) (test code = 697) 8.5 mg/dL 8.4-10.2 COMPREHENSIVE METABOLIC [id number] 04:00:00 Test Item Value Reference Range Interpretation [...] DIALYSIS PATIEN TS. Specimen moderately ictericHEPATIC FUNCTION [id number] 04:00:00 Test Item Value Reference Range Interpretation [...] 6-55 H 347) Specimen moderately ictericBLOOD GAS, [id number] 03:51:00 Test Item Value Reference Range Interpretation [...] (test code = 1819) 60.0 % PROTHROMBIN [id number] 03:51:00 Test Item Value Reference Range Interpretation Comments PROTIME ([facility]) (test code = 15.2 seconds 11.7-14.7 H 759) INR ([facility]) (test code = 370) 1.2 <=5.9 RECOMMENDED COUMADIN/WARFARIN INR THERAPY RANGESSTANDARD DOSE: 2.0 - 3.0 Includes: PROPHYLAXIS forvenous thrombosis, systemic embolization; TREATMENT for venous thrombosis and/or pulmonary embolus.HIGH RISK: Target INR is 2.5-3.5 for patients with mechanical heart valves.CALCIUM, [id number] 03:51:00 Test Item Value Reference Range Interpretation Comments CALCIUM IONIZED ([facility]) (test 1.17 mmol/L 1.12-1.27 code = 698) PH, BLOOD ([facility]) (test code = 7.42 1810) POCT-GLUCOSE [id number] 02:08:00 Test Item Value Reference Range Interpretation Comments POC-GLUCOSE METER 110 mg/dL 70-110 TESTED AT [place] [address] ([facility]) (test code = FOSTER Paul [facility] 1538) [address] POCT-GLUCOSE [id number] 01:14:00 Test Item Value Reference Range Interpretation Comments POC-GLUCOSE METER 107 mg/dL 70-110 TESTED AT [place] [address] ([facility]) (test code = FOSTER Paul [facility] 1538) [address] POCT-GLUCOSE [id number] 00:29:00 Test Item Value Reference Range Interpretation Comments POC-GLUCOSE METER 129 mg/dL 70-110 H TESTED AT [place] [address] ([facility]) (test code = FOSTER Paul [facility] 1538) [address] POCT-GLUCOSE [id number] 23:07:00 Test Item Value Reference Range Interpretation Comments POC-GLUCOSE METER 152 mg/dL 70-110 H TESTED AT [place] [address] ([facility]) (test code = FOSTER Paul [facility] 1538) [address] POCT-GLUCOSE [id number] 22:09:00 Test Item Value Reference Range Interpretation Comments POC-GLUCOSE METER 171 mg/dL 70-110 H TESTED AT [place] [address] ([facility]) (test code = FOSTER Paul [facility] 1538) [address] POCT-GLUCOSE [id number] 21:13:00 Test Item Value Reference Range Interpretation Comments POC-GLUCOSE METER 171 mg/dL 70-110 H TESTED AT [place] [address] ([facility]) (test code = FOSTER Paul [facility] 1538) [address] CALCIUM, [id number] 20:50:00 Test Item Value Reference Range Interpretation Comments CALCIUM IONIZED ([facility]) (test 1.15 mmol/L 1.12-1.27 code = 698) PH, BLOOD ([facility]) (test code = 7.34 1810) POCT-GLUCOSE [id number] 20:21:00 Test Item Value Reference Range Interpretation Comments POC-GLUCOSE METER 206 mg/dL 70-110 H TESTED AT [place] [address] ([facility]) (test code = MARIA GSC Humberto [facility] 1538) [address] POCT-GLUCOSE [id number] 19:16:00 Test Item Value Reference Range Interpretation Comments POC-GLUCOSE METER 197 mg/dL 70-110 H TESTED AT [place] [address] ([facility]) (test code = [facility] Humberto [facility] 1538) [address] [id number] 17:15:00 Test Item Value Reference Range Interpretation Comments PHOSPHORUS ([facility]) (test code = 4.1 mg/dL 2.3-4.7 604) [id number] 17:15:00 Test Item Value Reference Range Interpretation Comments MAGNESIUM ([facility]) (test code = 1.9 mg/dL 1.6-2.6 627) EEG AWAKE AND [id number] 14:56:00For STAT EEG- after 5 PM weekdays, weekends and holidays, page the on-call EEG TechReason for exam:->AMSShould this be performed at the bedside?->YesDate(s) of EE01/15/2018DATE OF REPORT: 01/15/2018ACC: [id number] Number: [id number] Location: Inpatient ICUStart time: 13:18Stop time: 13:40ICD-10: R41.82CPT Code: 50029 HISTORY: 62 y/o man with hxof AFib, [...] Kwon MD, MSClinic al Neurophysiology/Epilepsy Attending HEPARIN [id number] 13:21:00 Test Item Value Reference Range Interpretation Comments HEPARIN ANTIBODY ([facility]) (test code Negative Negative = 646) HEPARIN ANTIBODY OD ([facility]) (test 0.076 <0.400 code = 2659) 4T TOTAL SCORE ([facility]) (test code = 5 5053) Probability of HIT based on scoring system: 6-8 = High probability; 4-5 = intermediate probability;0-3 = low probabilityPOCT-GLUCOSE [id number] 12:26:00 Test Item Value Reference Range Interpretation Comments POC-GLUCOSE METER 128 mg/dL 70-[address] [facility] 6720 (AKER) (test code = FOSTER Paul [place] 1538) [address] FIBRIN SOLUBLE [id number] 11:02:00 Test Item Value Reference Range Interpretation Comments FIBRIN SOLUBLE MONOMER (BEAKER) Negative (test code = 1416) HEPARIN ASSAY - [id number] 10:20:00 Test Item Value Reference Range Interpretation Comments UNFRACTIONATED HEPARIN-ANTI 10A < u/ml 0.30-0.70 L (BEAKER) (test code = 1606) Recommendations for Monitoring Unfractionated Heparin Therapeutic Range: 0.3- 0.7 u/mL with continuous IV vbludwlmX-[id number] 10:14:00 Test Item Value Reference Range Interpretation [...] of thrombosis is within 95-100% range. GLUCOSE-STAT [id number] 10:03:00 Test Item Value Reference Range Interpretation Comments GLUCOSE RANDOM (BEAKER) (test code 151 mg/dL 70-110 H = 652) CALCIUM, [id number] 10:02:00 Test Item Value Reference Range Interpretation Comments CALCIUM IONIZED (BEAKER) (test 1.13 mmol/L 1.12-1.27 code = 698) PH, BLOOD (BEAKER) (test code = 7.36 1810) POTASSIUM-STAT [id number] 10:01:00 Test Item Value Reference Range Interpretation Comments POTASSIUM (BEAKER) (test code = 4.3 meq/L 3.6-5.5 379) CBC W/PLT COUNT & AUTO [id number] 07:43:00 Test Item Value Reference Range Interpretation [...] = 2801) RAD, CHEST, 1 VIEW, NON [id number] 04:00:00Reason for exam:->acute respiratory insufficiencyShould this be performed at the bedside?->Yes Addendum BeginsREPORT STATUS:A Correction: Comparison is made to previous dated 01/14/2018. Signed: Kellen Parra MDReport Verified Date/Time: 01/15/2018 04:00:43 Reading Location: [address] Reading RoomAddendum EndsFINAL REPORT CLINICAL ADEEL CATION: Respiratory insufficiency Comparison: 01/15/2018 The cardiomediastinal contours are stable. Central pulmonary vascular congestion and bilateral parenchymal opacities are unchanged. There is no pneumothorax. Support lines are stable. Signed: Kellen Parra MDReport Verified Date/Time: 01/15/201803:46:27 Reading Location: [address] Reading Room [id number] 03:36:00 Test Item Value Reference Range Interpretation Comments PHOSPHORUS (BEAKER) (test code = 2.7 mg/dL 2.3-4.7 604) [id number] 03:36:00 Test Item Value Reference Range Interpretation Comments MAGNESIUM (BEAKER) (test code = 2.0 mg/dL 1.6-2.6 627) COMPREHENSIVE METABOLIC [id number] 03:36:00 Test Item Value Reference Range Interpretation [...] DIALYSIS PATIEN TS. Specimen slightly ictericHEPATIC FUNCTION [id number] 03:36:00 Test Item Value Reference Range Interpretation [...] U/L 6-55 H 347) Specimen slightly ictericPROTHROMBIN TIME/[id number] 03:35:00 Test Item Value Reference Range Interpretation [...] mmol/L Previous: 5-20 mg/dLSpecimen slightly ictericBLOOD GAS, [id number] 03:29:00 Test Item Value Reference Range Interpretation [...] code = 1819) 40.0 % OXYGEN SATURATION, [id number] 03:26:00 Test Item Value Reference Range Interpretation Comments O2 SATURATION (MEASURED) (BEAKER) 72.5 % (test code = 1455) CALCIUM, [id number] 00:17:00 Test Item Value Reference Range Interpretation Comments CALCIUM IONIZED (BEAKER) (test 1.19 mmol/L 1.12-1.27 code = 698) PH, BLOOD (BEAKER) (test code = 7.36 1810) POCT-GLUCOSE [id number] 00:15:00 Test Item Value Reference Range Interpretation Comments POC-GLUCOSE METER 144 mg/dL 70-[address] [facility] 6720 (BEAKER) (test code = FOSTER Paul [place] 1538) [address] POCT-GLUCOSE [id number] 22:43:00 Test Item Value Reference Range Interpretation Comments POC-GLUCOSE METER 98 mg/dL 70-[address] [facility] 6720 (BEAKER) ([facility] [address] 1538) POCT-GLUCOSE [id number] 22:43:00 Test Item Value Reference Range Interpretation Comments POC-GLUCOSE METER 80 mg/dL 70-[address] [facility] 6720 (BEAKER) (test code = [place] [address] 1538) VANCOMYCIN LEVEL, [id number] 20:20:00 Test Item Value Reference Range Interpretation Comments VANCOMYCIN TROUGH (BEAKER) (test 20.1 ug/mL 10.0-20.0 H code = 522) Before vanc [id number] 16:52:00 Test Item Value Reference Range Interpretation Comments PHOSPHORUS (BEAKER) (test code = 1.7 mg/dL 2.3-4.7 L 604) [id number] 16:52:00 Test Item Value Reference Range Interpretation Comments MAGNESIUM (BEAKER) (test code = 2.3 mg/dL 1.6-2.6 627) [id number] 16:39:00 Test Item Value Reference Range Interpretation Comments AMMONIA (BEAKER) (test code = 348) 32 mol/L 18-72 PH, [id number] 16:01:00 Test Item Value Reference Range Interpretation Comments PH ARTERIAL (BEAKER) (test code = 383) 7.42 7.35-7.45 GLUCOSE-STAT [id number] 16:01:00 Test Item Value Reference Range Interpretation Comments GLUCOSE RANDOM (BEAKER) (test code = 95 mg/dL 70-110 652) POTASSIUM-STAT [id number] 16:01:00 Test Item Value Reference Range Interpretation Comments POTASSIUM (BEAKER) (test code = 4.3 meq/L 3.6-5.5 379) CALCIUM, [id number] 16:01:00 Test Item Value Reference Range Interpretation Comments CALCIUM IONIZED (BEAKER) (test 1.28 mmol/L 1.12-1.27 H code = 698) PH, BLOOD (BEAKER) (test code = 7.42 1810) CALCIUM, [id number] 12:19:00 Test Item Value Reference Range Interpretation Comments CALCIUM IONIZED (BEAKER) (test 1.36 mmol/L 1.12-1.27 H code = 698) PH, BLOOD (BEAKER) (test code = 7.41 1810) GLUCOSE-STAT [id number] 12:17:00 Test Item Value Reference Range Interpretation Comments GLUCOSE RANDOM (BEAKER) (test code = 94 mg/dL 70-110 652) POTASSIUM-STAT [id number] 12:17:00 Test Item Value Reference Range Interpretation Comments POTASSIUM (BEAKER) (test code = 4.3 meq/L 3.6-5.5 379) [id number] 11:34:00 Test Item Value Reference Range Interpretation Comments MAGNESIUM (BEAKER) (test code = 2.1 mg/dL 1.6-2.6 627) BASIC METABOLIC [id number] 11:34:00 Test Item Value Reference Range Interpretation [...] DIALYSIS PATIEN TS. Specimen slightly ictericHEPATIC FUNCTION [id number] 11:34:00 Test Item Value Reference Range Interpretation [...] 6-55 H 347) Specimen slightly ictericBLOOD GAS, [id number] 09:44:00 Test Item Value Reference Range Interpretation [...] (test code = 1819) 100.0 % GLUCOSE-STAT [id number] 09:42:00 Test Item Value Reference Range Interpretation Comments GLUCOSE RANDOM (BEAKER) (test code = 95 mg/dL 70-110 652) POTASSIUM-STAT [id number] 09:42:00 Test Item Value Reference Range Interpretation Comments POTASSIUM (BEAKER) (test code = 4.5 meq/L 3.6-5.5 379) CALCIUM, [id number] 09:38:00 Test Item Value Reference Range Interpretation Comments CALCIUM IONIZED (BEAKER) (test 1.26 mmol/L 1.12-1.27 code = 698) PH, BLOOD (BEAKER) (test code = 7.41 1810) HEPARIN ASSAY - [id number] 08:44:00 Test Item Value Reference Range Interpretation Comments UNFRACTIONATED HEPARIN-ANTI 10A < u/ml 0.30-0.70 L (BEAKER) (test code = 1606) Recommendations for Monitoring Unfractionated Heparin Therapeutic Range: 0.3- 0.7 u/mL with continuous IV infusionGLUCOSE-STAT [id number] 06:41:00 Test Item Value Reference Range Interpretation [...] (test 0.0 % 0.0-5.0 code = 1414) [id number] 05:05:00 Test Item Value Reference Range Interpretation Comments PHOSPHORUS (BEAKER) (test code = 2.5 mg/dL 2.3-4.7 604) [id number] 05:05:00 Test Item Value Reference Range Interpretation Comments MAGNESIUM (BEAKER) (test code = 2.1 mg/dL 1.6-2.6 627) HEPATIC FUNCTION [id number] 05:05:00 Test Item Value Reference Range Interpretation [...] 1266 U/L 6-55 H 347) Specimen slightly [id number] 05:05:00 Test Item Value Reference Range Interpretation Comments CALCIUM (BEAKER) (test code = 697) 9.0 mg/dL 8.4-10.2 LACTATE DEHYDROGENASE ([facility])2018-01-14 05:05:00 Test Item Value Reference Range Interpretation Comments LACTATE DEHYDROGENASE (BEAKER) (test 667 U/L 125-220 H code = 635) PROTHROMBIN [id number] 05:05:00 Test Item Value Reference Range Interpretation Comments PROTIME ([facility]) (test code = 15.2 seconds 11.7-14.7 H 759) INR (BEAKER) (test code = 370) 1.2 <=5.9 RECOMMENDED COUMADIN/WARFARIN INR THERAPY RANGESSTANDARD DOSE: 2.0 - 3.0 Includes: PROPHYLAXIS forvenous thrombosis, systemic embolization; TREATMENT for venous thrombosis and/or pulmonary embolus.HIGH RISK: Target INR is 2.5-3.5 for patients with mechanical heart valves.[id number] 05:05:00 Test Item Value Reference Range Interpretation Comments FIBRINOGEN LEVEL (BEAKER) (test 280 mg/dl 225-434 code = 658) RAD, CHEST, 1 VIEW, NON [id number] 04:57:00Reason for exam:- >impella/ECMO/intubationShould this be performed at the bedside?->YesFINAL REPORT CLINICAL INDICATION: Support lines. Comparison: 01/13/2018 The cardiomediastinal contours are stable. Cardiac opacities may reflect atelectasis but pneumonitis should be excluded clinically. There is no pneumothorax. Support lines are stable. Signed: Kellen Parra MDReport Verified Date/Time: 01/14/2018 04:57:02 Reading Location: [address] Reading Room LACTIC ACID, ARTERIAL, WHOLE [id number] 04:55:00 Test Item Value Reference Range Interpretation [...] H (BEAKER) (test code = 413) CALCIUM, [id number] 04:39:00 Test Item Value Reference Range Interpretation Comments CALCIUM IONIZED (BEAKER) (test 1.20 mmol/L 1.12-1.27 code = 698) PH, BLOOD (BEAKER) (test code = 7.37 1810) OXYGEN SATURATION, [id number] 04:38:00 Test Item Value Reference Range Interpretation Comments O2 SATURATION (MEASURED) (BEAKER) 75.3 % (test code = 1455) BLOOD GAS, [id number] 04:37:00 Test Item Value Reference Range Interpretation [...] (test code = 1819) 40.0 % GLUCOSE-STAT [id number] 04:37:00 Test Item Value Reference Range Interpretation Comments GLUCOSE RANDOM (BEAKER) (test code 154 mg/dL 70-110 H = 652) GLUCOSE-STAT [id number] 02:52:00 Test Item Value Reference Range Interpretation Comments GLUCOSE RANDOM (BEAKER) (test code 179 mg/dL 70-110 H = 652) GLUCOSE-STAT [id number] 01:26:00 Test Item Value Reference Range Interpretation Comments GLUCOSE RANDOM (BEAKER) (test code 195 mg/dL 70-110 H = 652) [id number] 00:08:00 Test Item Value Reference Range Interpretation Comments POTASSIUM (BEAKER) (test code = 4.2 meq/L 3.5-5.1 379) [id number] 00:08:00 Test Item Value Reference Range Interpretation Comments GLUCOSE RANDOM (BEAKER) (test code 237 mg/dL 70-105 H = 652) CBC W/PLT COUNT & AUTO [id number] 22:28:00 Test Item Value Reference Range Interpretation [...] = 413) RAD, CHEST, 1 VIEW, NON [id number] 21:50:00Reason for exam:->chest tubes/intubationShould this be performed [...] MDReport Verified Date/Time: 01/13/2018 21:50:50 Reading Location: [address] Consult Reading Room THROMBOELASTOGRAPH (TEG)2018-01-13 21:45:00 [...] % 0.0-5.0 code = 1414) BASIC METABOLIC [id number] 21:35:00 Test Item Value Reference Range Interpretation [...] APPLICABLE FOR DIALYSIS PATIEN TS. Specimen slightly [id number] 21:06:00 Test Item Value Reference Range Interpretation Comments PHOSPHORUS (BEAKER) (test code = 3.7 mg/dL 2.3-4.7 604) [id number] 21:06:00 Test Item Value Reference Range Interpretation Comments MAGNESIUM (BEAKER) (test code = 2.0 mg/dL 1.6-2.6 627) LACTIC ACID, ARTERIAL, WHOLE [id number] 21:06:00 Test Item Value Reference Range Interpretation Comments LACTATE BLOOD ARTERIAL (2) 1.8 mmol/L 0.5-2.2 (BEAKER) (test code = 2874) Effective 01/04/2016: Units/Reference Range ChangeNew: 0.5-2.2 mmol/L Previous: 5-20 mg/dLSpecimen slightly [id number] 21:01:00 Test Item Value Reference Range Interpretation Comments PARTIAL THROMBOPLASTIN TIME 35.1 seconds 22.5-36.0 (BEAKER) (test code = 760) [id number] 21:00:00 Test Item Value Reference Range Interpretation Comments FIBRINOGEN LEVEL (BEAKER) (test 253 mg/dl 225-434 code = 658) PROTHROMBIN [id number] 20:59:00 Test Item Value Reference Range Interpretation Comments PROTIME (BEAKER) (test code = 16.4 seconds 11.7-14.7 H 759) INR (BEAKER) (test code = 370) 1.3 <=5.9 RECOMMENDED COUMADIN/WARFARIN INR THERAPY RANGESSTANDARD DOSE: 2.0 - 3.0 Includes: PROPHYLAXIS forvenous thrombosis, systemic embolization; TREATMENT for venous thrombosis and/or pulmonary embolus.HIGH RISK: Target INR is 2.5-3.5 for patients with mechanical heart valves.BLOOD GAS, [id number] 20:47:00 Test Item Value Reference Range Interpretation [...] (test code = 1819) 40.0 % GLUCOSE-STAT [id number] 20:47:00 Test Item Value Reference Range Interpretation Comments GLUCOSE RANDOM (BEAKER) (test code 235 mg/dL 70-110 H = 652) CALCIUM, [id number] 20:47:00 Test Item Value Reference Range Interpretation Comments CALCIUM IONIZED (BEAKER) (test 0.97 mmol/L 1.12-1.27 L code = 698) PH, BLOOD (BEAKER) (test code = 7.39 1810) HGB/HCT (H&H) - STAT [id number] 20:46:00 Test Item Value Reference Range Interpretation Comments HEMOGLOBIN (BEAKER) (test code = 7.7 g/dL 13.0-16.8 L 410) HEMATOCRIT (BEAKER) (test code = 23.0 % 40.0-50.0 L 411) POTASSIUM-STAT [id number] 20:46:00 Test Item Value Reference Range Interpretation Comments POTASSIUM (BEAKER) (test code = 3.4 meq/L 3.6-5.5 L 379) SODIUM NA-STAT [id number] 20:46:00 Test Item Value Reference Range Interpretation Comments SODIUM (BEAKER) (test code = 381) 133 meq/L 135-148 L OXYGEN SATURATION, [id number] 20:42:00 Test Item Value Reference Range Interpretation Comments O2 SATURATION (MEASURED) (BEAKER) 74.1 % (test code = 1455) BLOOD GAS, [id number] 18:58:00 Test Item Value Reference Range Interpretation [...] code = 1819) 100.0 % SODIUM NA-STAT [id number] 18:58:00 Test Item Value Reference Range Interpretation Comments SODIUM (BEAKER) (test code = 381) 131 meq/L 135-148 L POTASSIUM-STAT [id number] 18:58:00 Test Item Value Reference Range Interpretation Comments POTASSIUM (BEAKER) (test code = 3.4 meq/L 3.6-5.5 L 379) GLUCOSE-STAT [id number] 18:58:00 Test Item Value Reference Range Interpretation Comments GLUCOSE RANDOM (BEAKER) (test code 214 mg/dL 70-110 H = 652) HGB/HCT (H&H) - STAT [id number] 18:58:00 Test Item Value Reference Range Interpretation [...] % 0.0-5.0 code = 1414) BLOOD GAS, [id number] 18:11:00 Test Item Value Reference Range Interpretation [...] code = 1819) 97.0 % SODIUM NA-STAT [id number] 18:11:00 Test Item Value Reference Range Interpretation Comments SODIUM (BEAKER) (test code = 381) 132 meq/L 135-148 L GLUCOSE-STAT [id number] 18:11:00 Test Item Value Reference Range Interpretation Comments GLUCOSE RANDOM (BEAKER) (test code 200 mg/dL 70-110 H = 652) HGB/HCT (H&H) - STAT [id number] 18:11:00 Test Item Value Reference Range Interpretation Comments HEMOGLOBIN (BEAKER) (test code = 8.2 g/dL 13.0-16.8 L 410) HEMATOCRIT (BEAKER) (test code = 24.0 % 40.0-50.0 L 411) POTASSIUM-STAT [id number] 18:07:00 Test Item Value Reference Range Interpretation Comments POTASSIUM (BEAKER) (test code = 3.5 meq/L 3.6-5.5 L 379) [id number] 16:37:00 Test Item Value Reference Range Interpretation Comments PHOSPHORUS (BEAKER) (test code = 2.5 mg/dL 2.3-4.7 604) [id number] 16:37:00 Test Item Value Reference Range Interpretation Comments MAGNESIUM (BEAKER) (test code = 2.1 mg/dL 1.6-2.6 627) [id number] 16:29:00 Test Item Value Reference Range Interpretation [...] for patients with mechanical heart valves.BLOOD GAS, [id number] 16:16:00 Test Item Value Reference Range Interpretation [...] (test code = 1819) 40.0 % CALCIUM, [id number] 16:14:00 Test Item Value Reference Range Interpretation Comments CALCIUM IONIZED (BEAKER) (test 1.09 mmol/L 1.12-1.27 L code = 698) PH, BLOOD (BEAKER) (test code = 7.64 1810) GLUCOSE-STAT [id number] 16:12:00 Test Item Value Reference Range Interpretation Comments GLUCOSE RANDOM (BEAKER) (test code 182 mg/dL 70-110 H = 652) CALCIUM, [id number] 12:53:00 Test Item Value Reference Range Interpretation Comments CALCIUM IONIZED (BEAKER) (test 1.12 mmol/L 1.12-1.27 code = 698) PH, BLOOD (BEAKER) (test code = 7.51 1810) BLOOD GAS, [id number] 12:53:00 Test Item Value Reference Range Interpretation [...] 1819) 40.0 % HGB/HCT (H&H) - STAT [id number] 12:53:00 Test Item Value Reference Range Interpretation Comments HEMOGLOBIN (BEAKER) (test code = 8.3 g/dL 13.0-16.8 L 410) HEMATOCRIT (BEAKER) (test code = 24.0 % 40.0-50.0 L 411) GLUCOSE-STAT [id number] 12:53:00 Test Item Value Reference Range Interpretation Comments GLUCOSE RANDOM (BEAKER) (test code 185 mg/dL 70-110 H = 652) POTASSIUM-STAT [id number] 12:52:00 Test Item Value Reference Range Interpretation Comments POTASSIUM (BEAKER) (test code = 3.7 meq/L 3.6-5.5 379) CBC W/PLT COUNT & AUTO [id number] 11:04:00 Test Item Value Reference Range Interpretation [...] 0-0 H (test code = 413) POTASSIUM-STAT [id number] 10:49:00 Test Item Value Reference Range Interpretation Comments POTASSIUM (BEAKER) (test code = 3.8 meq/L 3.6-5.5 379) HEPARIN ASSAY - [id number] 09:55:00 Test Item Value Reference Range Interpretation Comments UNFRACTIONATED HEPARIN-ANTI 10A 0.14 u/ml 0.30-0.70 L (BEAKER) (test code = 1606) Recommendations for Monitoring Unfractionated Heparin Therapeutic Range: 0.3- 0.7 u/mL with continuous IV [id number] 09:54:00 Test Item Value Reference Range Interpretation Comments PARTIAL THROMBOPLASTIN TIME 57.6 seconds 22.5-36.0 H (BEAKER) (test code = 760) BLOOD GAS, [id number] 09:33:00 Test Item Value Reference Range Interpretation [...] (test code = 1819) 40.0 % GLUCOSE-STAT [id number] 09:33:00 Test Item Value Reference Range Interpretation Comments GLUCOSE RANDOM (BEAKER) (test code 192 mg/dL 70-110 H = 652) GLUCOSE-STAT [id number] 09:33:00 Test Item Value Reference Range Interpretation Comments GLUCOSE RANDOM (BEAKER) (test code 192 mg/dL 70-110 H = 652) CALCIUM, [id number] 09:32:00 Test Item Value Reference Range Interpretation Comments CALCIUM IONIZED (BEAKER) (test 1.15 mmol/L 1.12-1.27 code = 698) PH, BLOOD (BEAKER) (test code = 7.51 1810) BLOOD GAS, [id number] 07:23:00 Test Item Value Reference Range Interpretation [...] % 0.0-5.0 code = 1414) BLOOD GAS, [id number] 06:13:00 Test Item Value Reference Range Interpretation [...] code = 1819) 40.0 % BLOOD GAS, [id number] 05:13:00 Test Item Value Reference Range Interpretation [...] (BEAKER) (test code = 1819) 100.0 % [id number] 04:41:00 Test Item Value Reference Range Interpretation Comments PARTIAL THROMBOPLASTIN TIME 61.3 seconds 22.5-36.0 H (BEAKER) (test code = 760) RAD, CHEST, 1 VIEW, NON [id number] 04:38:00Reason for exam:- >impella/ECMO/intubationShould this be performed at the bedside?->YesFINAL REPORT CLINICAL INDICATION: Support lines. Comparison: 01/12/2018 The cardiomediastinal contours are stable. Central pulmonary vascular prominence and bilateral parenchymalopacities are previous. There is no pneumothorax. Support lines are stable. Signed: Kellen Parra MDReport Verified Date/Time: 01/13/2018 04:38:41 Reading Location: [address] Reading Room HEPATIC FUNCTION [id number] 04:25:00 Test Item Value Reference Range Interpretation [...] 2232 U/L 6-55 H 347) Specimen slightly [id number] 04:19:00 Test Item Value Reference Range Interpretation Comments PHOSPHORUS (BEAKER) (test code = 4.1 mg/dL 2.3-4.7 604) [id number] 04:19:00 Test Item Value Reference Range Interpretation Comments MAGNESIUM (BEAKER) (test code = 1.9 mg/dL 1.6-2.6 627) [id number] 04:19:00 Test Item Value Reference Range Interpretation Comments CALCIUM (BEAKER) (test code = 697) 8.6 mg/dL 8.4-10.2 BASIC METABOLIC [id number] 04:19:00 Test Item Value Reference Range Interpretation [...] 1658 U/L 125-220 H code = 635) [id number] 04:16:00 Test Item Value Reference Range Interpretation Comments FIBRINOGEN LEVEL (BEAKER) (test 299 mg/dl 225-434 code = 658) LACTIC ACID, ARTERIAL, WHOLE [id number] 04:16:00 Test Item Value Reference Range Interpretation Comments LACTATE BLOOD ARTERIAL (2) 0.8 mmol/L 0.5-2.2 (BEAKER) (test code = 2874) Effective 01/04/2016: Units/Reference Range ChangeNew: 0.5-2.2 mmol/L Previous: 5-20 mg/dLSpecimen slightly ictericPROTHROMBIN [id number] 04:15:00 Test Item Value Reference Range Interpretation Comments PROTIME (BEAKER) (test code = 15.8 seconds 11.7-14.7 H 759) INR (BEAKER) (test code = 370) 1.3 <=5.9 RECOMMENDED COUMADIN/WARFARIN INR THERAPY RANGESSTANDARD DOSE: 2.0 - 3.0 Includes: PROPHYLAXIS forvenous thrombosis, systemic embolization; TREATMENT for venous thrombosis and/or pulmonary embolus.HIGH RISK: Target INR is 2.5-3.5 for patients with mechanical heart valves.CALCIUM, [id number] 04:04:00 Test Item Value Reference Range Interpretation Comments CALCIUM IONIZED (BEAKER) (test 1.15 mmol/L 1.12-1.27 code = 698) PH, BLOOD (BEAKER) (test code = 7.33 1810) BLOOD GAS, [id number] 04:03:00 Test Item Value Reference Range Interpretation [...] (test code = 1819) 40.0 % PLATELET [id number] 03:58:00 Test Item Value Reference Range Interpretation Comments PLATELET COUNT (BEAKER) (test code 89 K/CU MM 150-450 L = 756) OXYGEN SATURATION, [id number] 03:57:00 Test Item Value Reference Range Interpretation Comments O2 SATURATION (MEASURED) (BEAKER) 79.4 % (test code = 1455) BLOOD GAS, [id number] 01:19:00 Test Item Value Reference Range Interpretation [...] (test code = 1819) 40.0 % GLUCOSE-STAT [id number] 01:19:00 Test Item Value Reference Range Interpretation Comments GLUCOSE RANDOM (BEAKER) (test code 177 mg/dL 70-110 H = 652) POTASSIUM-STAT [id number] 01:18:00 Test Item Value Reference Range Interpretation Comments POTASSIUM (BEAKER) (test code = 4.0 meq/L 3.6-5.5 379) CALCIUM, [id number] 01:17:00 Test Item Value Reference Range Interpretation [...] (test 0.0 % 0.0-5.0 code = 1414) [id number] 20:36:00 Test Item Value Reference Range Interpretation Comments POTASSIUM (BEAKER) (test code = 4.2 meq/L 3.5-5.1 379) [id number] 20:36:00 Test Item Value Reference Range Interpretation Comments MAGNESIUM (BEAKER) (test code = 1.8 mg/dL 1.6-2.6 627) [id number] 20:36:00 Test Item Value Reference Range Interpretation Comments PHOSPHORUS (BEAKER) (test code = 3.5 mg/dL 2.3-4.7 604) LACTIC ACID, ARTERIAL, WHOLE [id number] 20:33:00 Test Item Value Reference Range Interpretation Comments LACTATE BLOOD ARTERIAL (2) 0.8 mmol/L 0.5-2.2 (BEAKER) (test code = 2874) Effective 01/04/2016: Units/Reference Range ChangeNew: 0.5-2.2 mmol/L Previous: 5-20 mg/dLSpecimen slightly ictericBLOOD GAS, [id number] 20:20:00 Test Item Value Reference Range Interpretation [...] (test code = 1819) 40.0 % GLUCOSE-STAT [id number] 20:20:00 Test Item Value Reference Range Interpretation Comments GLUCOSE RANDOM (BEAKER) (test code 180 mg/dL 70-110 H = 652) [id number] 18:34:00 Test Item Value Reference Range Interpretation Comments GLUCOSE RANDOM (BEAKER) (test code 218 mg/dL 70-105 H = 652) BLOOD GAS, [id number] 18:18:00 Test Item Value Reference Range Interpretation [...] (BEAKER) (test code = 1819) 40.0 % [id number] 17:12:00 Test Item Value Reference Range Interpretation Comments PARTIAL THROMBOPLASTIN TIME 54.1 seconds 22.5-36.0 H (BEAKER) (test code = 760) [id number] 17:12:00 Test Item Value Reference Range Interpretation Comments FIBRINOGEN LEVEL (BEAKER) (test 285 mg/dl 225-434 code = 658) PROTHROMBIN [id number] 17:10:00 Test Item Value Reference Range Interpretation [...] ChangeNew: 0.5-2.2 mmol/L Previous: 5-20 mg/dLSpecimen slightly [id number] 17:01:00 Test Item Value Reference Range Interpretation Comments POTASSIUM (BEAKER) (test code = 4.5 meq/L 3.5-5.1 379) [id number] 17:01:00 Test Item Value Reference Range Interpretation Comments GLUCOSE RANDOM (BEAKER) (test code 239 mg/dL 70-105 H = 652) PLATELET [id number] 16:46:00 Test Item Value Reference Range Interpretation Comments PLATELET COUNT (BEAKER) (test code 86 K/CU MM 150-450 L = 756) BLOOD GAS, [id number] 16:36:00 Test Item Value Reference Range Interpretation [...] (test 37.0 C code = 1818) CALCIUM, [id number] 16:36:00 Test Item Value Reference Range Interpretation Comments CALCIUM IONIZED (BEAKER) (test 1.08 mmol/L 1.12-1.27 L code = 698) PH, BLOOD (BEAKER) (test code = 7.46 1810) [id number] 15:00:00 Test Item Value Reference Range Interpretation Comments POTASSIUM (BEAKER) (test code = 4.7 meq/L 3.5-5.1 379) [id number] 15:00:00 Test Item Value Reference Range Interpretation Comments GLUCOSE RANDOM (BEAKER) (test code 210 mg/dL 70-105 H = 652) BLOOD GAS, [id number] 14:42:00 Test Item Value Reference Range Interpretation [...] 40.0 % RAD, CHEST, 1 VIEW, NON [id number] 14:41:00Reason for exam:->chest tube insertionFINAL REPORT CHEST [...] MDReport Verified Date/Time: 01/12/2018 14:41:22 Reading Location: [facility] C013T Transitional Reading Room MBOELASTOGRAPH [...] (test 0.0 % 0.0-5.0 code = 1414) [id number] 11:23:00 Test Item Value Reference Range Interpretation [...] exclusion of thrombosis is within 95-100% range. [id number] 10:10:00 Test Item Value Reference Range Interpretation Comments MAGNESIUM (BEAKER) 2.1 mg/dL 1.6-2.6 Specimen slightly (test code = 627) hemolyzed [id number] 10:10:00 Test Item Value Reference Range Interpretation Comments PHOSPHORUS (BEAKER) 4.2 mg/dL 2.3-4.7 Specimen slightly (test code = 604) hemolyzed [id number] 10:10:00 Test Item Value Reference Range Interpretation Comments POTASSIUM (BEAKER) 5.0 meq/L 3.5-5.1 Specimen slightly (test code = 379) hemolyzed [id number] 10:10:00 Test Item Value Reference Range Interpretation Comments GLUCOSE RANDOM (BEAKER) (test code 204 mg/dL 70-105 H = 652) [id number] 10:07:00 Test Item Value Reference Range Interpretation Comments FIBRINOGEN LEVEL (BEAKER) (test 251 mg/dl 225-434 code = 658) ANTITHROMBIN [id number] 10:04:00 Test Item Value Reference Range Interpretation Comments ANTITHROMBIN III ACTIVITY (BEAKER) 46.0 % 80.0-120.0 L (test code = 711) [id number] 09:58:00 Test Item Value Reference Range Interpretation Comments PARTIAL THROMBOPLASTIN TIME 59.8 seconds 22.5-36.0 H (BEAKER) (test code = 760) PROTHROMBIN [id number] 09:57:00 Test Item Value Reference Range Interpretation Comments PROTIME (BEAKER) (test code = 19.3 seconds 11.7-14.7 H 759) INR (BEAKER) (test code = 370) 1.6 <=5.9 RECOMMENDED COUMADIN/WARFARIN INR THERAPY RANGESSTANDARD DOSE: 2.0 - 3.0 Includes: PROPHYLAXIS forvenous thrombosis, systemic embolization; TREATMENT for venous thrombosis and/or pulmonary embolus.HIGH RISK: Target INR is 2.5-3.5 for patients with mechanical heart valves.PLATELET [id number] 09:49:00 Test Item Value Reference Range Interpretation Comments PLATELET COUNT (BEAKER) (test code 94 K/CU MM 150-450 L = 756) BLOOD GAS, [id number] 09:47:00 Test Item Value Reference Range Interpretation [...] (test code = 1819) 40.0 % CALCIUM, [id number] 09:46:00 Test Item Value Reference Range Interpretation Comments CALCIUM IONIZED (BEAKER) (test 1.12 mmol/L 1.12-1.27 code = 698) PH, BLOOD (BEAKER) (test code = 7.47 1810) HEPARIN ASSAY - [id number] 08:21:00 Test Item Value Reference Range Interpretation Comments UNFRACTIONATED HEPARIN-ANTI 10A < u/ml 0.30-0.70 L (BEAKER) (test code = 1606) Recommendations for Monitoring Unfractionated Heparin Therapeutic Range: 0.3- 0.7 u/mL with continuous IV infusionLACTATE DEHYDROGENASE (LDH)2018-01-12 07:40:00 Test Item Value Reference Range Interpretation Comments LACTATE DEHYDROGENASE (BEAKER) (test 3247 U/L 125-220 H code = 635) [id number] 07:38:00 Test Item Value Reference Range Interpretation Comments MAGNESIUM (BEAKER) (test code = 2.3 mg/dL 1.6-2.6 627) [id number] 07:38:00 Test Item Value Reference Range Interpretation Comments GLUCOSE RANDOM (BEAKER) (test code 217 mg/dL 70-105 H = 652) LACTIC ACID, ARTERIAL, WHOLE [id number] 07:27:00 Test Item Value Reference Range Interpretation Comments LACTATE BLOOD ARTERIAL (2) 1.4 mmol/L 0.5-2.2 (BEAKER) (test code = 2874) Effective 01/04/2016: Units/Reference Range ChangeNew: 0.5-2.2 mmol/L Previous: 5-20 mg/dLSpecimen slightly ictericGLUCOSE-STAT [id number] 06:55:00 Test Item Value Reference Range Interpretation Comments GLUCOSE RANDOM (BEAKER) (test code 212 mg/dL 70-110 H = 652) BLOOD GAS, [id number] 06:55:00 Test Item Value Reference Range Interpretation [...] (test code = 1819) 40.0 % POTASSIUM-STAT [id number] 06:52:00 Test Item Value Reference Range Interpretation Comments POTASSIUM (BEAKER) (test code = 4.8 meq/L 3.6-5.5 379) BLOOD GAS, [id number] 06:43:00 Test Item Value Reference Range Interpretation [...] 100.0 % RAD, CHEST, 1 VIEW, NON [id number] 06:14:00Reason for exam:- >impella/ECMO/intubationShould this be performed [...] MDReport Verified Date/Time: 01/12/2018 06:14:29 Reading Location: [address] Transitional Reading Room LACTATE DEHYDROGENASE (LDH)2018-01-12 05:03:00 Test Item Value Reference Range Interpretation Comments LACTATE DEHYDROGENASE (BEAKER) (test 3014 U/L 125-220 H code = 635) HEPATIC FUNCTION [id number] 05:03:00 Test Item Value Reference Range Interpretation [...] 1544 U/L 6-55 H 347) Specimen slightly [id number] 05:01:00 Test Item Value Reference Range Interpretation Comments PHOSPHORUS (BEAKER) (test code = 5.0 mg/dL 2.3-4.7 H 604) [id number] 05:01:00 Test Item Value Reference Range Interpretation Comments MAGNESIUM (BEAKER) (test code = 2.1 mg/dL 1.6-2.6 627) [id number] 05:01:00 Test Item Value Reference Range Interpretation Comments CALCIUM (BEAKER) (test code = 697) 8.5 mg/dL 8.4-10.2 BASIC METABOLIC [id number] 05:01:00 Test Item Value Reference Range Interpretation [...] TS. Specimen slightly ictericLACTIC ACID, ARTERIAL, WHOLE [id number] 04:42:00 Test Item Value Reference Range Interpretation Comments LACTATE BLOOD ARTERIAL (2) 1.5 mmol/L 0.5-2.2 (BEAKER) (test code = 2874) Effective 01/04/2016: Units/Reference Range ChangeNew: 0.5-2.2 mmol/L Previous: 5-20 mg/dLSpecimen slightly [id number] 04:38:00 Test Item Value Reference Range Interpretation Comments FIBRINOGEN LEVEL (BEAKER) (test 252 mg/dl 225-434 code = 658) [id number] 04:38:00 Test Item Value Reference Range Interpretation Comments PARTIAL THROMBOPLASTIN TIME 54.6 seconds 22.5-36.0 H (BEAKER) (test code = 760) CBC W/PLT COUNT & AUTO [id number] 04:37:00 Test Item Value Reference Range Interpretation [...] PERCENT (BEAKER) (test code = 2801) PROTHROMBIN [id number] 04:37:00 Test Item Value Reference Range Interpretation Comments PROTIME (BEAKER) (test code = 19.9 seconds 11.7-14.7 H 759) INR (BEAKER) (test code = 370) 1.7 <=5.9 RECOMMENDED COUMADIN/WARFARIN INR THERAPY RANGESSTANDARD DOSE: 2.0 - 3.0 Includes: PROPHYLAXIS forvenous thrombosis, systemic embolization; TREATMENT for venous thrombosis and/or pulmonary embolus.HIGH RISK: Target INR is 2.5-3.5 for patients with mechanical heart valves.CALCIUM, [id number] 04:31:00 Test Item Value Reference Range Interpretation Comments CALCIUM IONIZED (BEAKER) (test 1.12 mmol/L 1.12-1.27 code = 698) PH, BLOOD (BEAKER) (test code = 7.42 1810) BLOOD GAS, [id number] 04:30:00 Test Item Value Reference Range Interpretation [...] (test code = 1819) 40.0 % PLATELET [id number] 04:23:00 Test Item Value Reference Range Interpretation Comments PLATELET COUNT (BEAKER) (test 110 K/CU MM 150-450 L code = 756) OXYGEN SATURATION, [id number] 04:14:00 Test Item Value Reference Range Interpretation Comments O2 SATURATION (MEASURED) (BEAKER) 79.7 % (test code = 1455) [id number] 02:54:00 Test Item Value Reference Range Interpretation Comments PARTIAL THROMBOPLASTIN TIME 134.3 seconds 22.5-36.0 H (BEAKER) (test code = 760) [id number] 02:25:00 Test Item Value Reference Range Interpretation Comments PARTIAL THROMBOPLASTIN TIME 94.0 seconds 22.5-36.0 H (BEAKER) (test code = 760) BLOOD GAS, [id number] 01:56:00 Test Item Value Reference Range Interpretation [...] (test code = 1819) 40.0 % GLUCOSE-STAT [id number] 01:53:00 Test Item Value Reference Range Interpretation Comments GLUCOSE RANDOM (BEAKER) (test code 201 mg/dL 70-110 H = 652) POTASSIUM-STAT [id number] 01:52:00 Test Item Value Reference Range Interpretation Comments POTASSIUM (BEAKER) (test code = 4.9 meq/L 3.6-5.5 379) LACTIC ACID, ARTERIAL, WHOLE [id number] 01:18:00 Test Item Value Reference Range Interpretation Comments LACTATE BLOOD ARTERIAL (2) 2.0 mmol/L 0.5-2.2 (BEAKER) (test code = 2874) Effective 01/04/2016: Units/Reference Range ChangeNew: 0.5-2.2 mmol/L Previous: 5-20 mg/dLSpecimen slightly [id number] 01:18:00 Test Item Value Reference Range Interpretation Comments POTASSIUM (BEAKER) (test code = 5.1 meq/L 3.5-5.1 379) [id number] 01:18:00 Test Item Value Reference Range Interpretation Comments GLUCOSE RANDOM (BEAKER) (test code 194 mg/dL 70-105 H = 652) PROTHROMBIN [id number] 01:15:00 Test Item Value Reference Range Interpretation Comments PROTIME (BEAKER) (test code = 21.2 seconds 11.7-14.7 H 759) INR (BEAKER) (test code = 370) 1.8 <=5.9 RECOMMENDED COUMADIN/WARFARIN INR THERAPY RANGESSTANDARD DOSE: 2.0 - 3.0 Includes: PROPHYLAXIS forvenous thrombosis, systemic embolization; TREATMENT for venous thrombosis and/or pulmonary embolus.HIGH RISK: Target INR is 2.5-3.5 for patients with mechanical heart valves.[id number] 01:15:00 Test Item Value Reference Range Interpretation Comments FIBRINOGEN LEVEL (BEAKER) (test 233 mg/dl 225-434 code = 658) PLATELET [id number] 01:01:00 Test Item Value Reference Range Interpretation Comments PLATELET COUNT (BEAKER) (test code 84 K/CU MM 150-450 L = 756) BLOOD GAS, [id number] 01:00:00 Test Item Value Reference Range Interpretation [...] (test code = 1819) 40.0 % CALCIUM, [id number] 01:00:00 Test Item Value Reference Range Interpretation [...] 0.0-5.0 (BEAKER) (test code = 1414) GLUCOSE-STAT [id number] 23:53:00 Test Item Value Reference Range Interpretation Comments GLUCOSE RANDOM (BEAKER) (test code 182 mg/dL 70-110 H = 652) BLOOD GAS, [id number] 23:52:00 Test Item Value Reference Range Interpretation [...] FIO2 (BEAKER) (test code = 1819) 40 [id number] 23:05:00 Test Item Value Reference Range Interpretation Comments PARTIAL THROMBOPLASTIN TIME > seconds 22.5-36.0 HH (BEAKER) (test code = 760) BLOOD GAS, [id number] 23:01:00 Test Item Value Reference Range Interpretation [...] (BEAKER) (test code = 1819) 100.0 % [id number] 22:46:00 Test Item Value Reference Range Interpretation Comments FIBRINOGEN LEVEL (BEAKER) (test 223 mg/dl 225-434 L code = 658) PROTHROMBIN [id number] 22:45:00 Test Item Value Reference Range Interpretation Comments PROTIME (BEAKER) (test code = 23.0 seconds 11.7-14.7 H 759) INR (BEAKER) (test code = 370) 2.0 <=5.9 RECOMMENDED COUMADIN/WARFARIN INR THERAPY RANGESSTANDARD DOSE: 2.0 - 3.0 Includes: PROPHYLAXIS forvenous thrombosis, systemic embolization; TREATMENT for venous thrombosis and/or pulmonary embolus.HIGH RISK: Target INR is 2.5-3.5 for patients with mechanical heart valves.BLOOD GAS, [id number] 22:22:00 Test Item Value Reference Range Interpretation [...] (test code = 1819) 40.0 % CALCIUM, [id number] 22:21:00 Test Item Value Reference Range Interpretation Comments CALCIUM IONIZED (BEAKER) (test 1.05 mmol/L 1.12-1.27 L code = 698) PH, BLOOD (BEAKER) (test code = 7.67 1810) PLATELET [id number] 22:21:00 Test Item Value Reference Range Interpretation Comments PLATELET COUNT (BEAKER) (test code 71 K/CU MM 150-450 L = 756) GLUCOSE-STAT [id number] 22:20:00 Test Item Value Reference Range Interpretation Comments GLUCOSE RANDOM (BEAKER) (test code 189 mg/dL 70-110 H = 652) POTASSIUM-STAT [id number] 22:19:00 Test Item Value Reference Range Interpretation [...] 2133 U/L 125-220 H code = 635) [id number] 20:55:00 Test Item Value Reference Range Interpretation Comments POTASSIUM (BEAKER) (test code = 5.4 meq/L 3.5-5.1 H 379) [id number] 20:55:00 Test Item Value Reference Range Interpretation Comments MAGNESIUM (BEAKER) (test code = 1.6 mg/dL 1.6-2.6 627) [id number] 20:55:00 Test Item Value Reference Range Interpretation Comments PHOSPHORUS (BEAKER) (test code = 2.9 mg/dL 2.3-4.7 604) GLUCOSE-STAT [id number] 20:31:00 Test Item Value Reference Range Interpretation Comments GLUCOSE RANDOM (BEAKER) (test code 166 mg/dL 70-110 H = 652) POTASSIUM-STAT [id number] 20:30:00 Test Item Value Reference Range Interpretation Comments POTASSIUM (BEAKER) (test code = 5.2 meq/L 3.6-5.5 379) BLOOD GAS, [id number] 20:30:00 Test Item Value Reference Range Interpretation [...] code = 1819) 40.0 % OXYGEN SATURATION, [id number] 18:46:00 Test Item Value Reference Range Interpretation Comments O2 SATURATION (MEASURED) (BEAKER) 81.5 % (test code = 1455) RAD, CHEST, 1 VIEW, NON [id number] 18:27:00Reason for exam:->impella/ECMO placementShould this be performed [...] MDReport Verified Date/Time: 01/11/2018 18:27:33 Reading Location: [address] Ortho Consult Reading Room [id number] 18:11:00 Test Item Value Reference Range Interpretation Comments PARTIAL THROMBOPLASTIN TIME > seconds 22.5-36.0 HH (BEAKER) (test code = 760) LACTATE DEHYDROGENASE (LDH)2018-01-11 18:09:00 Test Item Value Reference Range Interpretation Comments LACTATE DEHYDROGENASE 1590 U/L 125-220 H Specim en slightly (BEAKER) (test code = hemoly zed 635) BASIC METABOLIC [id number] 18:08:00 Test Item Value Reference Range Interpretation [...] S NOT APPLICABLE FOR DIALYSIS PATIEN TS. [id number] 17:54:00 Test Item Value Reference Range Interpretation Comments MAGNESIUM (BEAKER) 1.8 mg/dL 1.6-2.6 Specimen slightly (test code = 627) hemolyzed [id number] 17:54:00 Test Item Value Reference Range Interpretation Comments PHOSPHORUS (BEAKER) 4.6 mg/dL 2.3-4.7 Specimen slightly (test code = 604) hemolyzed LACTIC ACID, ARTERIAL, WHOLE [id number] 17:53:00 Test Item Value Reference Range Interpretation Comments LACTATE BLOOD 10.8 mmol/L 0.5-2.2 H Specimen sligh tly ARTERIAL (2) (BEAKER) hemoly zed (test code = 2874) Effective 01/04/2016: Units/Reference Range ChangeNew: 0.5-2.2 mmol/L Previous: 5-20 mg/sOC-[id number] 17:46:00 Test Item Value Reference Range Interpretation [...] exclusion of thrombosis is within 95-100% range. [id number] 17:46:00 Test Item Value Reference Range Interpretation Comments FIBRINOGEN LEVEL (BEAKER) (test 201 mg/dl 225-434 L code = 658) PROTHROMBIN [id number] 17:45:00 Test Item Value Reference Range Interpretation Comments PROTIME (BEAKER) (test code = 24.4 seconds 11.7-14.7 H 759) INR (BEAKER) (test code = 370) 2.2 <=5.9 RECOMMENDED COUMADIN/WARFARIN INR THERAPY RANGESSTANDARD DOSE: 2.0 - 3.0 Includes: PROPHYLAXIS forvenous thrombosis, systemic embolization; TREATMENT for venous thrombosis and/or pulmonary embolus.HIGH RISK: Target INR is 2.5-3.5 for patients with mechanical heart valves.BLOOD GAS, [id number] 17:44:00 Test Item Value Reference Range Interpretation [...] code = 1819) 40.0 % SODIUM NA-STAT [id number] 17:44:00 Test Item Value Reference Range Interpretation Comments SODIUM (BEAKER) (test code = 381) 134 meq/L 135-148 L POTASSIUM-STAT [id number] 17:44:00 Test Item Value Reference Range Interpretation Comments POTASSIUM (BEAKER) (test code = 6.2 meq/L 3.6-5.5 HH 379) GLUCOSE-STAT [id number] 17:44:00 Test Item Value Reference Range Interpretation Comments GLUCOSE RANDOM (BEAKER) (test code 147 mg/dL 70-110 H = 652) HGB/HCT (H&H) - STAT [id number] 17:44:00 Test Item Value Reference Range Interpretation Comments HEMOGLOBIN (BEAKER) (test code = 9.9 g/dL 13.0-16.8 L 410) HEMATOCRIT (BEAKER) (test code = 29.0 % 40.0-50.0 L 411) CALCIUM, [id number] 17:41:00 Test Item Value Reference Range Interpretation Comments CALCIUM IONIZED (BEAKER) (test 1.03 mmol/L 1.12-1.27 L code = 698) PH, BLOOD (BEAKER) (test code = 7.52 1810) OXYGEN SATURATION, [id number] 17:39:00 Test Item Value Reference Range Interpretation Comments O2 SATURATION (MEASURED) (BEAKER) 84.5 % (test code = 1455) CBC W/PLT COUNT & AUTO [id number] 17:37:00 Test Item Value Reference Range Interpretation [...] 0-1 PERCENT (BEAKER) (test code = 2801) [id number] 16:35:00 Test Item Value Reference Range Interpretation Comments ACTIVATED CLOTTING TIME 230 sec TEST ED AT [place] [address] (BEAKER) (test code = [facility] 441) [id number] 16:35:00 Test Item Value Reference Range Interpretation Comments ACTIVATED CLOTTING TIME 191 sec TEST ED AT [place] [address] (BEAKER) (test code = [place] [address]) [address] BLOOD GAS, [id number] 16:20:00 Test Item Value Reference Range Interpretation [...] (test code = 1819) 100 BLOOD GAS, [id number] 16:19:00 Test Item Value Reference Range Interpretation [...] drawn from ECMO circuitLACTIC ACID, ARTERIAL, WHOLE [id number] 14:07:00 Test Item Value Reference Range Interpretation Comments LACTATE BLOOD 13.1 mmol/L 0.5-2.2 H Specimen sligh tly ARTERIAL (2) (BEAKER) hemoly zed (test code = 2874) Effective 01/04/2016: Units/Reference Range ChangeNew: 0.5-2.2 mmol/L Previous: 5-20 mg/dLPROTHROMBIN TIME/[id number] 14:01:00 Test Item Value Reference Range Interpretation Comments PROTIME (BEAKER) (test code = 20.9 seconds 11.7-14.7 H 759) INR (BEAKER) (test code = 370) 1.8 <=5.9 RECOMMENDED COUMADIN/WARFARIN INR THERAPY RANGESSTANDARD DOSE: 2.0 - 3.0 Includes: PROPHYLAXIS forvenous thrombosis, systemic embolization; TREATMENT for venous thrombosis and/or pulmonary embolus.HIGH RISK: Target INR is 2.5-3.5 for patients with mechanical heart valves.[id number] 14:01:00 Test Item Value Reference Range Interpretation Comments FIBRINOGEN LEVEL (BEAKER) (test 227 mg/dl 225-434 code = 658) PLATELET [id number] 13:54:00 Test Item Value Reference Range Interpretation Comments PLATELET COUNT (BEAKER) (test 115 K/CU MM 150-450 L code = 756) BLOOD GAS, [id number] 13:47:00 Test Item Value Reference Range Interpretation [...] (test code = 1819) 40.0 % GLUCOSE-STAT [id number] 13:47:00 Test Item Value Reference Range Interpretation Comments GLUCOSE RANDOM (BEAKER) (test code 134 mg/dL 70-110 H = 652) [id number] 12:33:00 Test Item Value Reference Range Interpretation Comments POTASSIUM (BEAKER) (test code = 5.6 meq/L 3.5-5.1 H 379) PRN - repeat glucose levels every 1 hour or as specified by insulin titration orders until glucose level is less than 450 mg/[id number] 12:33:00 Test Item Value Reference Range Interpretation Comments GLUCOSE RANDOM (BEAKER) (test code = 43 mg/dL 70-105 L 652) PRN - repeat glucose levels every 1 hour or as specified by insulin titration orders until glucose level is less than 450 mg/dLBASIC METABOLIC [id number] 11:05:00 Test Item Value Reference Range Interpretation [...] until glucose level is less than 450 mg/[id number] 11:05:00 Test Item Value Reference Range Interpretation Comments GLUCOSE RANDOM (BEAKER) (test code = 34 mg/dL 70-105 LL 652) [id number] 10:44:00 Test Item Value Reference Range Interpretation Comments POTASSIUM (BEAKER) (test code = 5.9 meq/L 3.5-5.1 H 379) HEPATIC FUNCTION [id number] 10:44:00 Test Item Value Reference Range Interpretation [...] Previous: 5-20 mg/dLCBC W/PLT COUNT & AUTO [id number] 10:23:00 Test Item Value Reference Range Interpretation [...] (BEAKER) (test code = 2801) BLOOD GAS, [id number] 10:20:00 Test Item Value Reference Range Interpretation [...] (BEAKER) (test code = 1819) 40.0 % [id number] 09:01:00 Test Item Value Reference Range Interpretation Comments POTASSIUM (BEAKER) (test code = 5.9 meq/L 3.5-5.1 H 379) PRN - repeat glucose levels every 1 hour or as specified by insulin titration orders until glucose level is less than 450 mg/[id number] 09:01:00 Test Item Value Reference Range Interpretation Comments MAGNESIUM (BEAKER) (test code = 1.7 mg/dL 1.6-2.6 627) PRN - repeat glucose levels every 1 hour or as specified by insulin titration orders until glucose level is less than 450 mg/[id number] 09:01:00 Test Item Value Reference Range Interpretation Comments PHOSPHORUS (BEAKER) (test code = 4.7 mg/dL 2.3-4.7 604) PRN - repeat glucose levels every 1 hour or as specified by insulin titration orders until glucose level is less than 450 mg/[id number] 09:01:00 Test Item Value Reference Range Interpretation Comments GLUCOSE RANDOM (BEAKER) (test code = 50 mg/dL 70-105 L 652) PRN - repeat glucose levels every 1 hour or as specified by insulin titration orders until glucose level is less than 450 mg/dLCALCIUM, [id number] 08:47:00 Test Item Value Reference Range Interpretation Comments CALCIUM IONIZED (BEAKER) (test 1.24 mmol/L 1.12-1.27 code = 698) PH, BLOOD (BEAKER) (test code = 7.31 1810) [id number] 08:45:00 Test Item Value Reference Range Interpretation Comments PARTIAL THROMBOPLASTIN TIME 53.7 seconds 22.5-36.0 H (BEAKER) (test code = 760) BLOOD GAS, [id number] 08:41:00 Test Item Value Reference Range Interpretation [...] (test code = 1819) 40.0 % PH, [id number] 08:41:00 Test Item Value Reference Range Interpretation Comments PH ARTERIAL (BEAKER) (test code = 383) 7.31 7.35-7.45 L RAD, CHEST, 1 VIEW, NON [id number] 07:31:00Reason for exam:->s/p cardiac surgeryShould this be [...] Xie MDReport VerifiedDate/Time: 01/11/2018 07:31:38 Reading Location: [address] Ortho Consult Reading Room BLOOD GAS, [...] code = 1819) 40.0 % BASIC METABOLIC [id number] 06:12:00 Test Item Value Reference Range Interpretation [...] NOT APPLICABLE FOR DIALYSIS PATIEN TS. POCT-GLUCOSE [id number] 05:58:00 Test Item Value Reference Range Interpretation Comments POC-GLUCOSE METER 121 mg/dL 70-[address] [facility] [address] (BEAKER) (test code = [place] [address]) [address] POCT-GLUCOSE [id number] 05:58:00 Test Item Value Reference Range Interpretation Comments POC-GLUCOSE METER 66 mg/dL 70-110 L Will Repea t Test/TESTED (BEAKER) (test code = AT [facility] [address] [place] [id number]) [facility] [address] 0 [id number] 05:51:00 Test Item Value Reference Range Interpretation Comments PHOSPHORUS (BEAKER) (test code = 3.5 mg/dL 2.3-4.7 604) [id number] 05:51:00 Test Item Value Reference Range Interpretation Comments MAGNESIUM (BEAKER) (test code = 1.9 mg/dL 1.6-2.6 627) BLOOD GAS, [id number] 05:47:00 Test Item Value Reference Range Interpretation [...] (test code = 1819) 40.0 % POCT-GLUCOSE [id number] 05:27:00 Test Item Value Reference Range Interpretation Comments POC-GLUCOSE METER 112 mg/dL 70-110 H TESTED AT [place] [address] (BEAKER) (test code = [place] [address]) [address] POCT-GLUCOSE [id number] 05:27:00 Test Item Value Reference Range Interpretation Comments POC-GLUCOSE METER 106 mg/dL 70-110 TESTED AT [place] [address] ([facility]) (test code = [place] [address]) [address] POCT-GLUCOSE [id number] 05:26:00 Test Item Value Reference Range Interpretation Comments POC-GLUCOSE METER 66 mg/dL 70-110 L TESTED AT [place] [address] ([facility]) (test code = [place] [facility] [address] 1538) LACTIC ACID, ARTERIAL, WHOLE [id number] 04:59:00 Test Item Value Reference Range Interpretation Comments LACTATE BLOOD 12.2 mmol/L 0.5-2.2 H Specimen sligh tly ARTERIAL (2) (BEAKER) hemoly zed (test code = 2874) Effective 01/04/2016: Units/Reference Range ChangeNew: 0.5-2.2 mmol/L Previous: 5-20 mg/dLCALCIUM, [id number] 04:57:00 Test Item Value Reference Range Interpretation Comments CALCIUM IONIZED (BEAKER) (test 1.33 mmol/L 1.12-1.27 H code = 698) PH, BLOOD (BEAKER) (test code = 7.30 1810) BLOOD GAS, [id number] 04:57:00 Test Item Value Reference Range Interpretation [...] code = 1819) 45.0 % OXYGEN SATURATION, [id number] 04:56:00 Test Item Value Reference Range Interpretation Comments O2 SATURATION (MEASURED) (BEAKER) 83.2 % (test code = 1455) CBC W/PLT COUNT & AUTO [id number] 04:56:00 Test Item Value Reference Range Interpretation [...] PERCENT (BEAKER) (test code = 2801) CALCIUM, [id number] 03:38:00 Test Item Value Reference Range Interpretation Comments CALCIUM IONIZED (BEAKER) (test 1.32 mmol/L 1.12-1.27 H code = 698) PH, BLOOD (BEAKER) (test code = 7.29 1810) BLOOD GAS, [id number] 03:36:00 Test Item Value Reference Range Interpretation [...] 1819) 50.0 % HGB/HCT (H&H) - STAT [id number] 03:36:00 Test Item Value Reference Range Interpretation Comments HEMOGLOBIN (BEAKER) (test code = 12.5 g/dL 13.0-16.8 L 410) HEMATOCRIT (BEAKER) (test code = 37.0 % 40.0-50.0 L 411) OXYGEN SATURATION, [id number] 03:35:00 Test Item Value Reference Range Interpretation Comments O2 SATURATION (MEASURED) (BEAKER) 80.3 % (test code = 1455) GLUCOSE-STAT [id number] 03:34:00 Test Item Value Reference Range Interpretation Comments GLUCOSE RANDOM (BEAKER) (test code = 91 mg/dL 70-110 652) SODIUM NA-STAT [id number] 03:34:00 Test Item Value Reference Range Interpretation Comments SODIUM (BEAKER) (test code = 381) 137 meq/L 135-148 POTASSIUM-STAT [id number] 03:34:00 Test Item Value Reference Range Interpretation Comments POTASSIUM (BEAKER) (test code = 4.6 meq/L 3.6-5.5 379) BLOOD GAS, [id number] 03:01:00 Test Item Value Reference Range Interpretation [...] 1819) 50.0 % HGB/HCT (H&H) - STAT [id number] 03:01:00 Test Item Value Reference Range Interpretation Comments HEMOGLOBIN (BEAKER) (test code = 12.0 g/dL 13.0-16.8 L 410) HEMATOCRIT (BEAKER) (test code = 35.0 % 40.0-50.0 L 411) POTASSIUM-STAT [id number] 03:00:00 Test Item Value Reference Range Interpretation Comments POTASSIUM (BEAKER) (test code = 5.0 meq/L 3.6-5.5 379) GLUCOSE-STAT [id number] 03:00:00 Test Item Value Reference Range Interpretation Comments GLUCOSE RANDOM (BEAKER) (test code 102 mg/dL 70-110 = 652) SODIUM NA-STAT [id number] 03:00:00 Test Item Value Reference Range Interpretation Comments SODIUM (BEAKER) (test code = 381) 140 meq/L 135-148 LACTIC ACID, ARTERIAL, WHOLE [id number] 01:53:00 Test Item Value Reference Range Interpretation Comments LACTATE BLOOD 9.4 mmol/L 0.5-2.2 H Specimen sligh tly ARTERIAL (2) (BEAKER) hemoly zed (test code = 2874) Effective 01/04/2016: Units/Reference Range ChangeNew: 0.5-2.2 mmol/L Previous: 5-20 mg/dLGLUCOSE-STAT [id number] 01:27:00 Test Item Value Reference Range Interpretation Comments GLUCOSE RANDOM (BEAKER) (test code = 99 mg/dL 70-110 652) BLOOD GAS, [id number] 01:27:00 Test Item Value Reference Range Interpretation [...] 1819) 100.0 % HGB/HCT (H&H) - STAT [id number] 01:27:00 Test Item Value Reference Range Interpretation Comments HEMOGLOBIN (BEAKER) (test code = 12.7 g/dL 13.0-16.8 L 410) HEMATOCRIT (BEAKER) (test code = 37.0 % 40.0-50.0 L 411) SODIUM NA-STAT [id number] 01:26:00 Test Item Value Reference Range Interpretation Comments SODIUM (BEAKER) (test code = 381) 141 meq/L 135-148 POTASSIUM-STAT [id number] 01:26:00 Test Item Value Reference Range Interpretation Comments POTASSIUM (BEAKER) (test code = 3.6 meq/L 3.6-5.5 379) [id number] 00:38:00 Test Item Value Reference Range Interpretation Comments PARTIAL THROMBOPLASTIN TIME 47.4 seconds 22.5-36.0 H (BEAKER) (test code = 760) [id number] 00:35:00 Test Item Value Reference Range Interpretation Comments POTASSIUM (BEAKER) 3.5 meq/L 3.5-5.1 Specimen slightly (test code = 379) hemolyzed CALCIUM, [id number] 00:25:00 Test Item Value Reference Range Interpretation [...] = 1414) RAD, CHEST, 1 VIEW, NON [id number] 22:36:00Reason for exam:->s/p BronchoscopyFINAL REPORT CLINICAL INDICATION: Post bronchoscopy Comparison: Same date [id number] hours There is improved aeration of the right upper lobe. No pneumothorax is present. Hazy opacity in the right upper lobe and in the retrocardiac lower lungs may reflect atelectasis but pneumonitis should be excluded clinically. The cardiomediastinal contours are stable. Support lines are stable. Signed: Kellen Parra MDReport Verified Date/Time: 01/10/2018 22:36:29 Reading Location: [address] Reading Room C METABOLIC [id number] 22:01:00 Test Item Value Reference Range Interpretation [...] S NOT APPLICABLE FOR DIALYSIS PATIEN TS. [id number] 22:00:00 Test Item Value Reference Range Interpretation Comments MAGNESIUM (BEAKER) 2.4 mg/dL 1.6-2.6 Specimen slightly (test code = 627) hemolyzed [id number] 22:00:00 Test Item Value Reference Range Interpretation Comments PHOSPHORUS (BEAKER) 3.2 mg/dL 2.3-4.7 Specimen slightly (test code = 604) hemolyzed LACTIC ACID, ARTERIAL, WHOLE [id number] 21:57:00 Test Item Value Reference Range Interpretation Comments LACTATE BLOOD 10.2 mmol/L 0.5-2.2 H Specimen sligh tly ARTERIAL (2) (BEAKER) hemoly zed (test code = 2874) Effective 01/04/2016: Units/Reference Range ChangeNew: 0.5-2.2 mmol/L Previous: 5-20 mg/dLCBC W/PLT COUNT & AUTO [id number] 21:51:00 Test Item Value Reference Range Interpretation [...] 0-1 PERCENT (BEAKER) (test code = 2801) [id number] 21:49:00 Test Item Value Reference Range Interpretation Comments PARTIAL THROMBOPLASTIN TIME 41.2 seconds 22.5-36.0 H (BEAKER) (test code = 760) PROTHROMBIN [id number] 21:48:00 Test Item Value Reference Range Interpretation Comments PROTIME (BEAKER) (test code = 19.8 seconds 11.7-14.7 H 759) INR (BEAKER) (test code = 370) 1.7 <=5.9 RECOMMENDED COUMADIN/WARFARIN INR THERAPY RANGESSTANDARD DOSE: 2.0 - 3.0 Includes: PROPHYLAXIS forvenous thrombosis, systemic embolization; TREATMENT for venous thrombosis and/or pulmonary embolus.HIGH RISK: Target INR is 2.5-3.5 for patients with mechanical heart valves.[id number] 21:48:00 Test Item Value Reference Range Interpretation Comments FIBRINOGEN LEVEL (BEAKER) (test 221 mg/dl 225-434 L code = 658) CALCIUM, [id number] 21:33:00 Test Item Value Reference Range Interpretation Comments CALCIUM IONIZED (BEAKER) (test 1.54 mmol/L 1.12-1.27 H code = 698) PH, BLOOD (BEAKER) (test code = 7.33 1810) OXYGEN SATURATION, [id number] 21:33:00 Test Item Value Reference Range Interpretation Comments O2 SATURATION (MEASURED) (BEAKER) 67.1 % (test code = 1455) GLUCOSE-STAT [id number] 21:32:00 Test Item Value Reference Range Interpretation Comments GLUCOSE RANDOM (BEAKER) (test code = 98 mg/dL 70-110 652) SODIUM NA-STAT [id number] 21:32:00 Test Item Value Reference Range Interpretation Comments SODIUM (BEAKER) (test code = 381) 139 meq/L 135-148 POTASSIUM-STAT [id number] 21:32:00 Test Item Value Reference Range Interpretation Comments POTASSIUM (BEAKER) (test code = 3.6 meq/L 3.6-5.5 379) BLOOD GAS, [id number] 21:32:00 Test Item Value Reference Range Interpretation [...] 1819) 60.0 % HGB/HCT (H&H) - STAT [id number] 21:32:00 Test Item Value Reference Range Interpretation Comments HEMOGLOBIN (BEAKER) (test code = 8.2 g/dL 13.0-16.8 L 410) HEMATOCRIT (BEAKER) (test code = 24.0 % 40.0-50.0 L 411) RAD, CHEST, 1 VIEW, NON [id number] 21:32:00Reason for exam:->s/p cardiac surgeryShould this be [...] the level of the clavicles. Right IJ [place] catheter terminatesin the distal right pulmonary artery. The soft tissues and osseous structures are intact. IMPRESSION: Postoperative changes with right upper lobe collapse, likely secondary to mucous plugging. Supporting lines and tubes as described above. Note position of the [place] catheter. Signed: Moiz Musa MDReport Verified Date/Time: 01/10/2018 21:32:31 Reading Location: [facility] C013W Consult Reading Room THROMBOELASTOGRAPH [...] 55.0-65.0 L (test code = 1413) CALCIUM, [id number] 20:42:00 Test Item Value Reference Range Interpretation Comments CALCIUM IONIZED (BEAKER) (test 1.41 mmol/L 1.12-1.27 H code = 698) PH, BLOOD (BEAKER) (test code = 7.41 1810) SODIUM NA-STAT [id number] 20:41:00 Test Item Value Reference Range Interpretation Comments SODIUM (BEAKER) (test code = 381) 138 meq/L 135-148 POTASSIUM-STAT [id number] 20:41:00 Test Item Value Reference Range Interpretation Comments POTASSIUM (BEAKER) (test code = 3.7 meq/L 3.6-5.5 379) BLOOD GAS, [id number] 20:41:00 Test Item Value Reference Range Interpretation [...] (test code = 1819) 100.0 % GLUCOSE-STAT [id number] 20:41:00 Test Item Value Reference Range Interpretation Comments GLUCOSE RANDOM (BEAKER) (test code 120 mg/dL 70-110 H = 652) HGB/HCT (H&H) - STAT [id number] 20:41:00 Test Item Value Reference Range Interpretation Comments HEMOGLOBIN (BEAKER) (test code = 7.8 g/dL 13.0-16.8 L 410) HEMATOCRIT (BEAKER) (test code = 23.0 % 40.0-50.0 L 411) [id number] 20:23:00 Test Item Value Reference Range Interpretation Comments FIBRINOGEN LEVEL (BEAKER) (test 239 mg/dl 225-434 code = 658) [id number] 20:23:00 Test Item Value Reference Range Interpretation Comments PARTIAL THROMBOPLASTIN TIME 38.6 seconds 22.5-36.0 H (BEAKER) (test code = 760) PROTHROMBIN [id number] 20:22:00 Test Item Value Reference Range Interpretation Comments PROTIME (BEAKER) (test code = 21.6 seconds 11.7-14.7 H 759) INR (BEAKER) (test code = 370) 1.9 <=5.9 RECOMMENDED COUMADIN/WARFARIN INR THERAPY RANGESSTANDARD DOSE: 2.0 - 3.0 Includes: PROPHYLAXIS forvenous thrombosis, systemic embolization; TREATMENT for venous thrombosis and/or pulmonary embolus.HIGH RISK: Target INR is 2.5-3.5 for patients with mechanical heart valves.[id number] 20:16:00 Test Item Value Reference Range Interpretation Comments ACTIVATED CLOTTING TIME 114 sec TEST ED AT [place] [address] ([facility]) (test code = [place] [address]) [address] [id number] 20:16:00 Test Item Value Reference Range Interpretation Comments ACTIVATED CLOTTING TIME 499 sec TEST ED AT [place] [address] ([facility]) (test code = [place] [address]) [address] [id number] 20:16:00 Test Item Value Reference Range Interpretation Comments ACTIVATED CLOTTING TIME 483 sec TEST ED AT [place] [address] ([facility]) (test code = [place] [address]) [address] [id number] 20:16:00 Test Item Value Reference Range Interpretation Comments ACTIVATED CLOTTING TIME 538 sec TEST ED AT [place] [address] ([facility]) (test code = [place] [address]) [address] [id number] 20:16:00 Test Item Value Reference Range Interpretation Comments ACTIVATED CLOTTING TIME 615 sec TEST ED AT [place] [address] ([facility]) (test code = [place] [address]) [address] [id number] 20:16:00 Test Item Value Reference Range Interpretation Comments ACTIVATED CLOTTING TIME 692 sec TEST ED AT [place] [address] ([facility]) (test code = [place] [address]) [address] [id number] 20:16:00 Test Item Value Reference Range Interpretation Comments ACTIVATED CLOTTING TIME 428 sec TEST ED AT [place] [address] ([facility]) (test code = [place] [address]) [address] [id number] 20:16:00 Test Item Value Reference Range Interpretation Comments ACTIVATED CLOTTING TIME 373 sec TEST ED AT [place] [address] ([facility]) (test code = [place] [address]) [address] [id number] 20:16:00 Test Item Value Reference Range Interpretation Comments ACTIVATED CLOTTING TIME 455 sec TEST ED AT [place] [address] ([facility]) (test code = [place] [address]) [address] [id number] 20:16:00 Test Item Value Reference Range Interpretation Comments ACTIVATED CLOTTING TIME 494 sec TEST ED AT [place] [address] (BEAKER) (test code = [place] [facility] 441) [address] [id number] 20:16:00 Test Item Value Reference Range Interpretation Comments ACTIVATED CLOTTING TIME 527 sec TEST ED AT [place] [address] ([facility]) (test code = [place] [address]) [address] [id number] 20:16:00 Test Item Value Reference Range Interpretation Comments ACTIVATED CLOTTING TIME 610 sec TEST ED AT [place] [address] ([facility]) (test code = [place] [address]) [address] [id number] 20:16:00 Test Item Value Reference Range Interpretation Comments ACTIVATED CLOTTING TIME 576 sec TEST ED AT [place] [address] ([facility]) (test code = [place] [address]) [address] [id number] 20:16:00 Test Item Value Reference Range Interpretation Comments ACTIVATED CLOTTING TIME 384 sec TEST ED AT [place] [address] ([facility]) (test code = [place] [address]) [address] PLATELET [id number] 20:08:00 Test Item Value Reference Range Interpretation [...] 0.0-5.0 (BEAKER) (test code = 1414) CALCIUM, [id number] 19:59:00 Test Item Value Reference Range Interpretation Comments CALCIUM IONIZED (BEAKER) (test 1.39 mmol/L 1.12-1.27 H code = 698) PH, BLOOD (BEAKER) (test code = 7.37 1810) BLOOD GAS, [id number] 19:58:00 Test Item Value Reference Range Interpretation [...] (test code = 1819) 100.0 % GLUCOSE-STAT [id number] 19:58:00 Test Item Value Reference Range Interpretation Comments GLUCOSE RANDOM (BEAKER) (test code 143 mg/dL 70-110 H = 652) HGB/HCT (H&H) - STAT [id number] 19:58:00 Test Item Value Reference Range Interpretation Comments HEMOGLOBIN (BEAKER) (test code = 8.7 g/dL 13.0-16.8 L 410) HEMATOCRIT (BEAKER) (test code = 26.0 % 40.0-50.0 L 411) SODIUM NA-STAT [id number] 19:57:00 Test Item Value Reference Range Interpretation Comments SODIUM (BEAKER) (test code = 381) 140 meq/L 135-148 POTASSIUM-STAT [id number] 19:57:00 Test Item Value Reference Range Interpretation Comments POTASSIUM (BEAKER) (test code = 3.9 meq/L 3.6-5.5 379) [id number] 19:29:00 Test Item Value Reference Range Interpretation Comments PARTIAL THROMBOPLASTIN TIME > seconds 22.5-36.0 HH (BEAKER) (test code = 760) [id number] 19:16:00 Test Item Value Reference Range Interpretation Comments FIBRINOGEN LEVEL (BEAKER) (test 271 mg/dl 225-434 code = 658) PROTHROMBIN [id number] 19:15:00 Test Item Value Reference Range Interpretation Comments PROTIME (BEAKER) (test code = 21.3 seconds 11.7-14.7 H 759) INR (BEAKER) (test code = 370) 1.8 <=5.9 RECOMMENDED COUMADIN/WARFARIN INR THERAPY RANGESSTANDARD DOSE: 2.0 - 3.0 Includes: PROPHYLAXIS forvenous thrombosis, systemic embolization; TREATMENT for venous thrombosis and/or pulmonary embolus.HIGH RISK: Target INR is 2.5-3.5 for patients with mechanical heart valves.PLATELET [id number] 19:06:00 Test Item Value Reference Range Interpretation Comments PLATELET COUNT (BEAKER) (test code 54 K/CU MM 150-450 L = 756) BLOOD GAS, [id number] 18:49:00 Test Item Value Reference Range Interpretation [...] 1819) 100.0 % HGB/HCT (H&H) - STAT [id number] 18:44:00 Test Item Value Reference Range Interpretation Comments HEMOGLOBIN (BEAKER) (test code = 10.1 g/dL 13.0-16.8 L 410) HEMATOCRIT (BEAKER) (test code = 30.0 % 40.0-50.0 L 411) SODIUM NA-STAT [id number] 18:43:00 Test Item Value Reference Range Interpretation Comments SODIUM (BEAKER) (test code = 381) 137 meq/L 135-148 POTASSIUM-STAT [id number] 18:43:00 Test Item Value Reference Range Interpretation Comments POTASSIUM (BEAKER) (test code = 5.0 meq/L 3.6-5.5 379) GLUCOSE-STAT [id number] 18:43:00 Test Item Value Reference Range Interpretation Comments GLUCOSE RANDOM (BEAKER) (test code 187 mg/dL 70-110 H = 652) SODIUM NA-STAT [id number] 18:22:00 Test Item Value Reference Range Interpretation Comments SODIUM (BEAKER) (test code = 381) 140 meq/L 135-148 POTASSIUM-STAT [id number] 18:22:00 Test Item Value Reference Range Interpretation Comments POTASSIUM (BEAKER) (test code = 4.7 meq/L 3.6-5.5 379) BLOOD GAS, [id number] 18:22:00 Test Item Value Reference Range Interpretation [...] (test code = 1819) 60.0 % GLUCOSE-STAT [id number] 18:22:00 Test Item Value Reference Range Interpretation Comments GLUCOSE RANDOM (BEAKER) (test code 209 mg/dL 70-110 H = 652) HGB/HCT (H&H) - STAT [id number] 18:22:00 Test Item Value Reference Range Interpretation Comments HEMOGLOBIN (BEAKER) (test code = 10.2 g/dL 13.0-16.8 L 410) HEMATOCRIT (BEAKER) (test code = 30.0 % 40.0-50.0 L 411) BLOOD GAS, [id number] 17:57:00 Test Item Value Reference Range Interpretation [...] (test code = 1819) 65.0 % GLUCOSE-STAT [id number] 17:57:00 Test Item Value Reference Range Interpretation Comments GLUCOSE RANDOM (BEAKER) (test code 198 mg/dL 70-110 H = 652) HGB/HCT (H&H) - STAT [id number] 17:57:00 Test Item Value Reference Range Interpretation Comments HEMOGLOBIN (BEAKER) (test code = 10.3 g/dL 13.0-16.8 L 410) HEMATOCRIT (BEAKER) (test code = 30.0 % 40.0-50.0 L 411) SODIUM NA-STAT [id number] 17:56:00 Test Item Value Reference Range Interpretation Comments SODIUM (BEAKER) (test code = 381) 138 meq/L 135-148 POTASSIUM-STAT [id number] 17:56:00 Test Item Value Reference Range Interpretation Comments POTASSIUM (BEAKER) (test code = 4.7 meq/L 3.6-5.5 379) BLOOD GAS, [id number] 17:28:00 Test Item Value Reference Range Interpretation [...] (test code = 1819) 65.0 % GLUCOSE-STAT [id number] 17:28:00 Test Item Value Reference Range Interpretation Comments GLUCOSE RANDOM (BEAKER) (test code 223 mg/dL 70-110 H = 652) HGB/HCT (H&H) - STAT [id number] 17:28:00 Test Item Value Reference Range Interpretation Comments HEMOGLOBIN (BEAKER) (test code = 10.1 g/dL 13.0-16.8 L 410) HEMATOCRIT (BEAKER) (test code = 30.0 % 40.0-50.0 L 411) SODIUM NA-STAT [id number] 17:27:00 Test Item Value Reference Range Interpretation Comments SODIUM (BEAKER) (test code = 381) 140 meq/L 135-148 POTASSIUM-STAT [id number] 17:27:00 Test Item Value Reference Range Interpretation [...] code = 1414) HGB/HCT (H&H) - STAT [id number] 17:01:00 Test Item Value Reference Range Interpretation Comments HEMOGLOBIN (BEAKER) (test code = 10.1 g/dL 13.0-16.8 L 410) HEMATOCRIT (BEAKER) (test code = 30.0 % 40.0-50.0 L 411) BLOOD GAS, [id number] 17:00:00 Test Item Value Reference Range Interpretation [...] (test code = 1819) 65.0 % GLUCOSE-STAT [id number] 17:00:00 Test Item Value Reference Range Interpretation Comments GLUCOSE RANDOM (BEAKER) (test code 243 mg/dL 70-110 H = 652) SODIUM NA-STAT [id number] 16:59:00 Test Item Value Reference Range Interpretation Comments SODIUM (BEAKER) (test code = 381) 139 meq/L 135-148 POTASSIUM-STAT [id number] 16:59:00 Test Item Value Reference Range Interpretation Comments POTASSIUM (BEAKER) (test code = 4.6 meq/L 3.6-5.5 379) [id number] 16:47:00 Test Item Value Reference Range Interpretation Comments PARTIAL THROMBOPLASTIN TIME > seconds 22.5-36.0 HH (BEAKER) (test code = 760) BLOOD GAS, [id number] 16:18:00 Test Item Value Reference Range Interpretation [...] (test code = 1819) 65.0 % GLUCOSE-STAT [id number] 16:18:00 Test Item Value Reference Range Interpretation Comments GLUCOSE RANDOM (BEAKER) (test code 279 mg/dL 70-110 H = 652) HGB/HCT (H&H) - STAT [id number] 16:18:00 Test Item Value Reference Range Interpretation Comments HEMOGLOBIN (BEAKER) (test code = 7.0 g/dL 13.0-16.8 L 410) HEMATOCRIT (BEAKER) (test code = 21.0 % 40.0-50.0 L 411) SODIUM NA-STAT [id number] 16:17:00 Test Item Value Reference Range Interpretation Comments SODIUM (BEAKER) (test code = 381) 137 meq/L 135-148 POTASSIUM-STAT [id number] 16:17:00 Test Item Value Reference Range Interpretation Comments POTASSIUM (BEAKER) (test code = 4.6 meq/L 3.6-5.5 379) [id number] 16:15:00 Test Item Value Reference Range Interpretation Comments FIBRINOGEN LEVEL (BEAKER) (test 255 mg/dl 225-434 code = 658) PROTHROMBIN [id number] 16:14:00 Test Item Value Reference Range Interpretation Comments PROTIME (BEAKER) (test code = 20.2 seconds 11.7-14.7 H 759) INR (BEAKER) (test code = 370) 1.7 <=5.9 RECOMMENDED COUMADIN/WARFARIN INR THERAPY RANGESSTANDARD DOSE: 2.0 - 3.0 Includes: PROPHYLAXIS forvenous thrombosis, systemic embolization; TREATMENT for venous thrombosis and/or pulmonary embolus.HIGH RISK: Target INR is 2.5-3.5 for patients with mechanical heart valves.PLATELET [id number] 16:02:00 Test Item Value Reference Range Interpretation Comments PLATELET COUNT (BEAKER) (test code 57 K/CU MM 150-450 L = 756) CALCIUM, [id number] 15:51:00 Test Item Value Reference Range Interpretation Comments CALCIUM IONIZED (BEAKER) (test 0.82 mmol/L 1.12-1.27 L code = 698) PH, BLOOD (BEAKER) (test code = 7.45 1810) BLOOD GAS, [id number] 15:51:00 Test Item Value Reference Range Interpretation [...] (test code = 1819) 100.0 % GLUCOSE-STAT [id number] 15:51:00 Test Item Value Reference Range Interpretation Comments GLUCOSE RANDOM (BEAKER) (test code 190 mg/dL 70-110 H = 652) HGB/HCT (H&H) - STAT [id number] 15:51:00 Test Item Value Reference Range Interpretation Comments HEMOGLOBIN (BEAKER) (test code = 7.6 g/dL 13.0-16.8 L 410) HEMATOCRIT (BEAKER) (test code = 22.0 % 40.0-50.0 L 411) POTASSIUM-STAT [id number] 15:51:00 Test Item Value Reference Range Interpretation Comments POTASSIUM (BEAKER) (test code = 5.6 meq/L 3.6-5.5 H 379) SODIUM NA-STAT [id number] 15:50:00 Test Item Value Reference Range Interpretation Comments SODIUM (BEAKER) (test code = 381) 139 meq/L 135-148 BLOOD GAS, [id number] 15:43:00 Test Item Value Reference Range Interpretation [...] (test code = 1819) 75.0 % GLUCOSE-STAT [id number] 15:43:00 Test Item Value Reference Range Interpretation Comments GLUCOSE RANDOM (BEAKER) (test code 189 mg/dL 70-110 H = 652) HGB/HCT (H&H) - STAT [id number] 15:43:00 Test Item Value Reference Range Interpretation Comments HEMOGLOBIN (BEAKER) (test code = 8.0 g/dL 13.0-16.8 L 410) HEMATOCRIT (BEAKER) (test code = 24.0 % 40.0-50.0 L 411) POTASSIUM-STAT [id number] 15:43:00 Test Item Value Reference Range Interpretation Comments POTASSIUM (BEAKER) (test code = 5.7 meq/L 3.6-5.5 H 379) SODIUM NA-STAT [id number] 15:42:00 Test Item Value Reference Range Interpretation Comments SODIUM (BEAKER) (test code = 381) 136 meq/L 135-148 SODIUM NA-STAT [id number] 15:06:00 Test Item Value Reference Range Interpretation Comments SODIUM (BEAKER) (test code = 381) 139 meq/L 135-148 BLOOD GAS, [id number] 15:06:00 Test Item Value Reference Range Interpretation [...] (test code = 1819) 60.0 % POTASSIUM-STAT [id number] 15:06:00 Test Item Value Reference Range Interpretation Comments POTASSIUM (BEAKER) (test code = 5.8 meq/L 3.6-5.5 H 379) GLUCOSE-STAT [id number] 15:06:00 Test Item Value Reference Range Interpretation Comments GLUCOSE RANDOM (BEAKER) (test code 192 mg/dL 70-110 H = 652) HGB/HCT (H&H) - STAT [id number] 15:06:00 Test Item Value Reference Range Interpretation Comments HEMOGLOBIN (BEAKER) (test code = 8.2 g/dL 13.0-16.8 L 410) HEMATOCRIT (BEAKER) (test code = 24.0 % 40.0-50.0 L 411) POTASSIUM-STAT [id number] 14:41:00 Test Item Value Reference Range Interpretation Comments POTASSIUM (BEAKER) (test code = 5.2 meq/L 3.6-5.5 379) BLOOD GAS, [id number] 14:41:00 Test Item Value Reference Range Interpretation [...] code = 1819) 60.0 % SODIUM NA-STAT [id number] 14:41:00 Test Item Value Reference Range Interpretation Comments SODIUM (BEAKER) (test code = 381) 134 meq/L 135-148 L GLUCOSE-STAT [id number] 14:41:00 Test Item Value Reference Range Interpretation Comments GLUCOSE RANDOM (BEAKER) (test code 195 mg/dL 70-110 H = 652) HGB/HCT (H&H) - STAT [id number] 14:41:00 Test Item Value Reference Range Interpretation Comments HEMOGLOBIN (BEAKER) (test code = 8.2 g/dL 13.0-16.8 L 410) HEMATOCRIT (BEAKER) (test code = 24.0 % 40.0-50.0 L 411) BLOOD GAS, [id number] 14:10:00 Test Item Value Reference Range Interpretation [...] (test code = 1819) 60.0 % GLUCOSE-STAT [id number] 14:10:00 Test Item Value Reference Range Interpretation Comments GLUCOSE RANDOM (BEAKER) (test code 177 mg/dL 70-110 H = 652) HGB/HCT (H&H) - STAT [id number] 14:10:00 Test Item Value Reference Range Interpretation Comments HEMOGLOBIN (BEAKER) (test code = 8.5 g/dL 13.0-16.8 L 410) HEMATOCRIT (BEAKER) (test code = 25.0 % 40.0-50.0 L 411) SODIUM NA-STAT [id number] 14:09:00 Test Item Value Reference Range Interpretation Comments SODIUM (BEAKER) (test code = 381) 136 meq/L 135-148 POTASSIUM-STAT [id number] 14:09:00 Test Item Value Reference Range Interpretation Comments POTASSIUM (BEAKER) (test code = 5.0 meq/L 3.6-5.5 379) SODIUM NA-STAT [id number] 13:39:00 Test Item Value Reference Range Interpretation Comments SODIUM (BEAKER) (test code = 381) 136 meq/L 135-148 POTASSIUM-STAT [id number] 13:39:00 Test Item Value Reference Range Interpretation Comments POTASSIUM (BEAKER) (test code = 5.0 meq/L 3.6-5.5 379) BLOOD GAS, [id number] 13:39:00 Test Item Value Reference Range Interpretation [...] (test code = 1819) 60.0 % GLUCOSE-STAT [id number] 13:39:00 Test Item Value Reference Range Interpretation Comments GLUCOSE RANDOM (BEAKER) (test code 179 mg/dL 70-110 H = 652) HGB/HCT (H&H) - STAT [id number] 13:39:00 Test Item Value Reference Range Interpretation Comments HEMOGLOBIN (BEAKER) (test code = 8.1 g/dL 13.0-16.8 L 410) HEMATOCRIT (BEAKER) (test code = 24.0 % 40.0-50.0 L 411) CALCIUM, [id number] 12:31:00 Test Item Value Reference Range Interpretation Comments CALCIUM IONIZED (BEAKER) (test 1.09 mmol/L 1.12-1.27 L code = 698) PH, BLOOD (BEAKER) (test code = 7.45 1810) GLUCOSE-STAT [id number] 12:30:00 Test Item Value Reference Range Interpretation Comments GLUCOSE RANDOM (BEAKER) (test code = 93 mg/dL 70-110 652) SODIUM NA-STAT [id number] 12:30:00 Test Item Value Reference Range Interpretation Comments SODIUM (BEAKER) (test code = 381) 140 meq/L 135-148 POTASSIUM-STAT [id number] 12:30:00 Test Item Value Reference Range Interpretation Comments POTASSIUM (BEAKER) (test code = 3.9 meq/L 3.6-5.5 379) BLOOD GAS, [id number] 12:30:00 Test Item Value Reference Range Interpretation [...] 1819) 100.0 % HGB/HCT (H&H) - STAT [id number] 12:30:00 Test Item Value Reference Range Interpretation Comments HEMOGLOBIN (BEAKER) (test code = 9.3 g/dL 13.0-16.8 L 410) HEMATOCRIT (BEAKER) (test code = 27.0 % 40.0-50.0 L 411) HEMOGLOBIN [id number] 10:02:00 Test Item Value Reference Range Interpretation Comments HEMOGLOBIN A1C (BEAKER) (test code = 4.4 % 4.3-6.1 368) POCT-GLUCOSE [id number] 09:52:00 Test Item Value Reference Range Interpretation Comments POC-GLUCOSE METER 115 mg/dL 70-[address] [facility] 6720 (BEAKER) (test code = [facility] 1538) [address] PROTHROMBIN [id number] 02:41:00 Test Item Value Reference Range Interpretation Comments PROTIME (BEAKER) (test code = 14.9 seconds 11.7-14.7 H 759) INR (BEAKER) (test code = 370) 1.2 <=5.9 RECOMMENDED COUMADIN/WARFARIN INR THERAPY RANGESSTANDARD DOSE: 2.0 - 3.0 Includes: PROPHYLAXIS forvenous thrombosis, systemic embolization; TREATMENT for venous thrombosis and/or pulmonary embolus.HIGH RISK: Target INR is 2.5-3.5 for patients with mechanical heart valves.BASIC METABOLIC [id number] 00:29:00 Test Item Value Reference Range Interpretation [...] S NOT APPLICABLE FOR DIALYSIS PATIEN TS. [id number] 00:22:00 Test Item Value Reference Range Interpretation Comments MAGNESIUM (BEAKER) 2.5 mg/dL 1.6-2.6 Specimen slightly (test code = 627) hemolyzed [id number] 00:14:00 Test Item Value Reference Range Interpretation Comments PARTIAL THROMBOPLASTIN TIME 38.6 seconds 22.5-36.0 H (BEAKER) (test code = 760) CBC W/PLT COUNT & AUTO [id number] 00:07:00 Test Item Value Reference Range Interpretation [...] 0-1 PERCENT (BEAKER) (test code = 2801) [id number] 17:03:00 Test Item Value Reference Range Interpretation Comments THYROID STIMULATING HORMONE 1.30 uIU/mL 0.35-4.94 (BEAKER) (test code = 772) HEPATIC FUNCTION [id number] 16:43:00 Test Item Value Reference Range Interpretation [...] 69 U/L 6-55 H 347) BASIC METABOLIC [id number] 15:47:00 Test Item Value Reference Range Interpretation [...] S NOT APPLICABLE FOR DIALYSIS PATIEN TED. [id number] 14:57:00 Test Item Value Reference Range Interpretation Comments PARTIAL THROMBOPLASTIN TIME 82.9 seconds 22.5-36.0 H (BEAKER) (test code = 760) CBC W/PLT COUNT & AUTO [id number] 14:48:00 Test Item Value Reference Range Interpretation [...] ([facility]) (test code = 2801) POCT-GLUCOSE [id number] 11:13:00 Test Item Value Reference Range Interpretation Comments POC-GLUCOSE METER 207 mg/dL 70-[address] [facility] 67 ([facility]) (test code = [facility] 1538) [address] POCT-GLUCOSE [id number] 08:08:00 Test Item Value Reference Range Interpretation Comments POC-GLUCOSE METER 124 mg/dL 70-110 H TESTED AT [place] [address] ([facility]) (test code = [facility] 1538) [address] [id number] 06:51:00 Test Item Value Reference Range Interpretation Comments PARTIAL THROMBOPLASTIN TIME 54.6 seconds 22.5-36.0 H ([facility]) (test code = 760) HEPATITIS B SURFACE [id number] 00:28:00 Test Item Value Reference Range Interpretation Comments HEPATITIS B SURFACE ANTIGEN (2) Nonreactive Nonreactive ([facility]) (test code = 2585) [id number] 00:06:00 Test Item Value Reference Range Interpretation Comments PHOSPHORUS (BEAKER) (test code = 3.2 mg/dL 2.3-4.7 604) [id number] 00:03:00 Test Item Value Reference Range Interpretation Comments PARTIAL THROMBOPLASTIN TIME 36.0 seconds 22.5-36.0 (BEAKER) (test code = 760) CBC W/PLT COUNT & AUTO [id number] 23:45:00 Test Item Value Reference Range Interpretation [...] PERCENT (BEAKER) (test code = 2801) POCT-GLUCOSE [id number] 17:39:00 Test Item Value Reference Range Interpretation Comments POC-GLUCOSE METER 116 mg/dL 70-[address] [facility] 6720 (BEAKER) (test code = [facility] 1538) [address] [id number] 15:35:00 Test Item Value Reference Range Interpretation Comments THYROID STIMULATING HORMONE 1.39 uIU/mL 0.35-4.94 (JARROD) (test code = 772) [id number] 15:06:00 Test Item Value Reference Range Interpretation Comments PARTIAL THROMBOPLASTIN TIME 31.0 seconds 22.5-36.0 (JARROD) (test code = 760) Prior to initiating heparinPROTHROMBIN TIME/[id number] 15:05:00 Test Item Value Reference Range Interpretation Comments PROTIME (JARROD) (test code = 14.4 seconds 11.7-14.7 759) INR (JARROD) (test code = 370) 1.1 <=5.9 RECOMMENDED COUMADIN/WARFARIN INR THERAPY RANGESSTANDARD DOSE: 2.0 - 3.0 Includes: PROPHYLAXIS forvenous thrombosis, systemic embolization; TREATMENT for venous thrombosis and/or pulmonary embolus.HIGH RISK: Target INR is 2.5-3.5 for patients with mechanical heart valves.PLATELET [id number] 14:52:00 Test Item Value Reference Range Interpretation Comments PLATELET COUNT (JRAROD) (test 109 K/CU MM 150-450 L code = 756) POCT-GLUCOSE [id number] 12:00:00 Test Item Value Reference Range Interpretation Comments POC-GLUCOSE METER 186 mg/dL 70-[address] [facility] 6720 (JARROD) (test code = FOSTER VU MD 1538) [address] RAD, CHEST, 1 VIEW, NON [id number] 11:43:00Reason for exam:->SOB, known severe MRShould this be performed at the bedside?->YesFINAL REPORT Chest one view AP 01/08/2018 11:42 AM CLINICAL INDICATION: SOB, kno wn severe MR COMPARISON: 12/02/2017 IMPRESSION: Cardiomediastinal contours are stable. There is mild pulmonary edema. There are trace bilateral pleural effusions. Signed: Yevgeniy Anderson Verified Date/Time: 01/08/2018 11:43:52 Reading Location: [facility] Radiology Reading Room Electronic ally signed by: YEVGENIY ANDERSON M.D. on 01/08/2018 11:43 AMRAPID CK-HUDSON 2017-12-02 10:04:00 Test Item Value Reference Range Interpretation Comments RAPID CKMB (BEAKER) (test code = 1.5 ng/mL 0.0-4.3 1482) RAPID TROPONIN [id number] 10:04:00 Test Item Value Reference Range Interpretation Comments RAPID TROPONIN I (BEAKER) (test code < ng/mL <0.05 = 1483) RAD, CHEST, 2 [id number] 10:00:00Reason for exam:->Chest PainFINAL REPORT Chest two views Discussion: Heart size upper limits of normal. Bilateral interstitial edema with small bilateral effusions. No pneumothorax. Bones and soft tissues unremarkable. Signed: Rhea Colindreseport Verified Date/Time: 12/02/2017 10:00:39 Reading Location:[facility] Radiology Reading Room B-TYPE NATRIURETIC FACTOR (BNP)2017-12-02 09:56:00 Test Item Value Reference Range Interpretation Comments B-TYPE NATRIURETIC PEPTIDE 1990 pg/mL 0-100 H (BEAKER) (test code = 700) BASIC METABOLIC [id number] 09:52:00 Test Item Value Reference Range Interpretation [...] S NOT APPLICABLE FOR DIALYSIS PATIEN TS. [id number] 09:51:00 Test Item Value Reference Range Interpretation Comments MAGNESIUM (BEAKER) (test code = 1.7 mg/dL 1.5-3.0 627) CBC W/PLT COUNT & AUTO [id number] 09:50:00 Test Item Value Reference Range Interpretation [...] (BEAKER) (test code = 417) CD4/CD8 Ratio [id number] 08:04:00 Test Item Value Reference Range Interpretation Comments Absolute CD [address] (test code 188 /uL 359-1519 L = 895015) % CD 4 Pos. Lymph. (test code = 37.6 % 30.8-58.5 N 553648) Abs. CD 8 Suppressor (test code 183 /uL 109-897 N = 463061) % CD 8 Pos. Lymph. (test code = 36.6 % 12.0-35.5 H 949805) CD4/CD8 Ratio (test code = 1.03 0.92-3.72 N 852814) WBC (test code = 362962) 5.0 x10E3/uL 3.4-10.8 N RBC (test code = 988862) 3.00 x10E6/uL 4.14-5.80 L Hemoglobin (test code = 423954) 9.6 g/dL 13.0-17.7 L Hematocrit (test code = 215656) 27.6 % 37.5-51.0 L MCV (test code = 694420) 92 fL 79-97 N MCH (test code = 607557) 32.0 pg 26.6-33.0 N MCHC (test code = 948847) 34.8 g/dL 31.5-35.7 N RDW (test code = 928033) 15.5 % 12.3-15.4 H Platelets (test code = 013324) 113 x10E3/uL 150-379 L Neutrophils (test code = 84 % Not Estab. N 130759) Lymphs (test code = 841874) 9 % Not Estab. N Monocytes (test code = 757295) 6 % Not Estab. N Eos (test code = 985042) 1 % Not Estab. N Basos (test code = 101904) 0 % Not Estab. N Neutrophils (Absolute) (test 4.2 x10E3/uL 1.4-7.0 N code = 009236) Lymphs (Absolute) (test code = 0.5 x10E3/uL 0.7-3.1 L 559271) Monocytes(Absolute) (test code 0.3 x10E3/uL 0.1-0.9 N = 219827) Eos (Absolute) (test code = 0.0 x10E3/uL 0.0-0.4 N 264487) Baso (Absolute) (test code = 0.0 x10E3/uL 0.0-0.2 N 086076) Immature Granulocytes (test 0 % Not Estab. N code = 143004) Immature Grans (Abs) (test code 0.0 x10E3/uL 0.0-0.1 N = 082860) Culture, Blood [id number] 08:42:00Specimen: BloodCollected: 11/19/2017 00:21 Status: Final Last Updated: 11/24/2017 08:42 Culture Result (Final) (Final) No Growth After 5 DaysCulture, Blood [id number] 08:42:00 Specimen: BloodCollected: 11/18/2017 20:30 Status: Final Last Updated: 11/24/2017 08:42 Culture Result (Final) (Final) No Growth After 5 DaysPOC Glucose, [id number] 11:51:00 Test Item Value Reference Range Interpretation Comments POC Glucose (test 148 mg/dL 70-115 H Notify RN or MDIf you code = POCGLUC) consider you r patient critically ill, the [facility] Accu-Chek InformII metershould not be used for Glucose determinations. Draw a venous Glucose and send to the Main Lab for Analysis. CK [id number] 07:42:00 Test Item Value Reference Range Interpretation Comments CK (test code = CK) na U/L 39-308 N CKMB (test code = CKMB) 4.0 ng/mL 0.0-4.9 N CKMB% (test code = CKMBP) 0.0 % 0.0-3.4 N [id number] 07:39:00 Test Item Value Reference Range Interpretation Comments NT ProBnp (test code = PBNP) >64675 pg/mL 0-124 H Troponin [id number] 07:18:00 Test Item Value Reference Range Interpretation Comments Troponin T (test code = MADHAV) 0.103 ng/mL 0.000-0.090 H Lactate [id number] 07:18:00 Test Item Value Reference Range Interpretation Comments LDH (test code = LDH) 271 U/L 135-225 H POC Glucose, [id number] 06:50:00 Test Item Value Reference Range Interpretation Comments POC Glucose (test 154 mg/dL 70-115 H Notify RN or MDIf you code = POCGLUC) consider you r patient critically ill, the [facility] Accu-Chek InformII metershould not be used for Glucose determinations. Draw a venous Glucose and send to the Main Lab for Analysis. CK [id number] 01:08:00 Test Item Value Reference Range Interpretation Comments CK (test code = CK) na U/L 39-308 N CKMB (test code = CKMB) 3.6 ng/mL 0.0-4.9 N CKMB% (test code = CKMBP) 0.0 % 0.0-3.4 N Troponin [id number] 01:08:00 Test Item Value Reference Range Interpretation Comments Troponin T (test code = MADHAV) 0.106 ng/mL 0.000-0.090 H XR CHEST 1 [id number] 21:02:01CLINICAL INFORMATION: Vascular congestion.Dictation Location: R 16Comparison: 11/18/2017 showed perihilar and lower lobe opacities. Technique: Portable AP 195 hoursFINDINGS: Monitoring electrodes overlie the chest wall. Cardiomegaly withincreasing central vascular interstitial prominence with bibasilaropacities and effusions. No interval bone changes.IMPRESSION: Changes could indicate worsening cardiac decompensation orfluid overload.POC Glucose, [id number] 20:15:00 Test Item Value Reference Range Interpretation Comments POC Glucose (test 139 mg/dL 70-115 H If you con analog ic design engineer your code = POCGLUC) patient crit ically ill, the [facility] Accu- Chek InformII meters hould not be used for Glu cose determinations. Draw a venous Glucose and send to the Main Lab for Analysis. POC Glucose, [id number] 16:52:00 Test Item Value Reference Range Interpretation Comments POC Glucose (test 123 mg/dL 70-115 H If you con analog ic design engineer your code = POCGLUC) patient crit ically ill, the [facility] Accu- Chek InformII meters hould not be used for Glu cose determinations. Draw a venous Glucose and send to the Main Lab for Analysis. POC Glucose, [id number] 12:04:00 Test Item Value Reference Range Interpretation Comments POC Glucose (test 140 mg/dL 70-115 H If you con analog ic design engineer your code = POCGLUC) patient crit ically ill, the [facility] Accu- Chek InformII meters hould not be used for Glu cose determinations. Draw a venous Glucose and send to the Main Lab for Analysis. POC Glucose, [id number] 08:01:00 Test Item Value Reference Range Interpretation Comments POC Glucose (test 126 mg/dL 70-115 H If you con analog ic design engineer your code = POCGLUC) patient crit ically ill, the [facility] Accu- Chek InformII meters hould not be used for Glu cose determinations. Draw a venous Glucose and send to the Main Lab for Analysis. CK [id number] 06:03:00 Test Item Value Reference Range Interpretation Comments CK (test code = CK) na U/L 39-308 N CKMB (test code = CKMB) 2.8 ng/mL 0.0-4.9 N CKMB% (test code = CKMBP) 0.0 % 0.0-3.4 N Basic Metabolic [id number] 05:51:00 Test Item Value Reference Range Interpretation [...] the [employer] Foundation,http ://nkd ep.nih.gov Magnesium, [id number] 05:51:00 Test Item Value Reference Range Interpretation Comments Magnesium (test code = MG) 1.9 mg/dL 1.7-2.5 N [id number] 05:51:00 Test Item Value Reference Range Interpretation Comments Phosphorus (test code = PO4) 3.8 mg/dL 2.70-4.50 N [id number] 05:51:00 Test Item Value Reference Range Interpretation Comments NT ProBnp (test code = PBNP) >72600 pg/mL 0-124 H Troponin [id number] 05:51:00 Test Item Value Reference Range Interpretation Comments Troponin T (test code = MADHAV) 0.126 ng/mL 0.000-0.090 H CBC with [id number] 05:34:00 Test Item Value Reference Range Interpretation [...] code = ALYMPH) 0.4 K/cumm 0.5-4.6 L Morrison Abs (test code = AMONO) 0.6 K/cumm 0.0-1.2 N Eos Abs (test code = AEOS) 0.13 K/cumm 0.00-0.74 N Baso Abs (test code = ABASO) 0.0 K/cumm 0.00-0.21 N CK [id number] 18:39:00 Test Item Value Reference Range Interpretation Comments CK (test code = CK) HIDE U/L 39-308 N CKMB (test code = CKMB) 3.2 ng/mL 0.0-4.9 N CKMB% (test code = CKMBP) HIDE % 0.0-3.4 N Troponin [id number] 18:39:00 Test Item Value Reference Range Interpretation Comments Troponin T (test code = MADHAV) 0.126 ng/mL 0.000-0.090 H Hep B Surface [id number] 18:39:00 Test Item Value Reference Range Interpretation Comments Hep Bs Ag (test code = HBSAG) Nonreactive Non-Reactive A POC Glucose, [id number] 16:47:00 Test Item Value Reference Range Interpretation Comments POC Glucose (test 143 mg/dL 70-115 H If you con analog ic design engineer your code = POCGLUC) patient crit ically ill, the [facility] Accu- Chek InformII meters hould not be used for Glu cose determinations. Draw a venous Glucose and send to the Main Lab for Analysis. XR CHEST 1 [id number] 08:18:18EXAM: Portable AP chest x-rayLOCATION: R16 INDICATION: CoughCOMPARISON: 11/07/2017FINDINGS:The cardiacsilhouette is stable enlargement. There are increasinginterstitial opacities, most evident in the per ihilar regions and lowerlobes. There is blunting of the costophrenic angles bilaterally. Thereis no discernible pneumothorax.IMPRESSION:Increasing perihilar and bilateral lower lobe opacities compared to theprior exam dated 11/07/2017. Findings may represent pulmonary edema orpneumonia in the appropriate clinical setting.Comprehensive Metabolic [id number] 08:05:00 Test Item Value Reference Range Interpretation [...] the [employer],http :[email or web address] ep.nih.gov CK [id number] 08:05:00 Test Item Value Reference Range Interpretation Comments CK (test code = CK) 149 U/L 39-308 N Troponin [id number] 08:02:00 Test Item Value Reference Range Interpretation Comments Troponin T (test code = MADHAV) 0.114 ng/mL 0.000-0.090 H [id number]-[id number] 08:02:00 Test Item Value Reference Range Interpretation Comments NT ProBnp (test code = PBNP) >44910 pg/mL 0-124 H CBC with [id number] 07:53:00 Test Item Value Reference Range Interpretation [...] code = ALYMPH) 0.9 K/cumm 0.5-4.6 N Morrison Abs (test code = AMONO) 0.4 K/cumm 0.0-1.2 N Eos Abs (test code = AEOS) 0.11 K/cumm 0.00-0.74 N Baso Abs (test code = ABASO) 0.0 K/cumm 0.00-0.21 N XR CHEST 1 [id number] 21:38:09EXAM: CHEST ONE VIEWINDICATION: CoughCOMPARISON: October 06, 2017TECHNIQUE: AP view of the chest.FINDINGS: The cardiomediastinal silhouette is unchanged. Mild congestive changesbilaterally. No pneumothorax or pleural effusion is identified. Theosseous structures are unremarkable.IMPRESSION: Diffuse congestive changes bilaterally.LOCATION: R16US DUPLX EXT VEINS COMPRS, [id number] 20:09:34AFTER HOURS SERVICE ON: 10/06/2017 8:09 PMRIGHT Lower Extremity Venous Duplex Doppler ExaminationLocation Code [id number]: SwellingTechnique: Real-time castillo scale, Doppler spectral analysis [...] Lower Extremity Venous Duplex Doppler ExaminationLocation Code I73Ubfuz ry: SwellingTechnique: Real-time castillo scale, Doppler spectral [...] of DVT in the imaged vessels.Comprehensive Metabolic [id number] 17:40:00 Test Item Value Reference Range Interpretation [...] National Kidney Foundation,http ://nkd ep.nih.gov CBC with [id number] 17:15:00 Test Item Value Reference Range Interpretation [...] code = ALYMPH) 1.3 K/cumm 0.5-4.6 N Morrison Abs (test code = AMONO) 0.6 K/cumm 0.0-1.2 N Eos Abs (test code = AEOS) 0.12 K/cumm 0.00-0.74 N Baso Abs (test code = ABASO) 0.0 K/cumm 0.00-0.21 N XR CHEST 1 [id number] 16:56:42CHEST 1 VIEW: [id number]: coughCOMPARISON:Sep 24, 2017FINDINGS:The heart is enlarged. There is engorgement of the central pulmonaryvasculature. There are patchy bibasilar areas of infiltrate oratelectasis with bilateral effusions. No pneumothorax is present. IMPRESSION: 1. Patchy areas of atelectasis or infiltrate in the lung bases withsmall bilateral effusions and vascular congestion most likely secondaryto CHF.Culture, Blood [id number] 14:58:00Specimen: BloodCollected: 09/24/2017 13:05 Status: Final Last Updated: 09/29/2017 14:58 (1) ER Bed 1 Culture Result (Final) (Final) No Growth After 5 DaysCulture, Blood [id number] 14:58:00Specimen: BloodCollected: 09/24/2017 12:50 Status: Final Last Updated: 09/29/2017 14:58 (1) ER Bed 1 Culture Result (Final) (Final) No Growth After 5 DaysPOC Glucose, [id number] 10:54:00 Test Item Value Reference Range Interpretation Comments POC Glucose (test 168 mg/dL 70-115 H If you con analog ic design engineer your code = POCGLUC) patient crit ically ill, the Madeline Accu- Chek InformII meters hould not be used for Glu cose determinations. Draw a venous Glucose and send to the Main Lab for Analysis. POC Glucose, [id number] 07:16:00 Test Item Value Reference Range Interpretation Comments POC Glucose (test 143 mg/dL 70-115 H If you con analog ic design engineer your code = POCGLUC) patient crit ically ill, the Madeline Accu- Chek InformII meters hould not be used for Glu cose determinations. Draw a venous Glucose and send to the Main Lab for Analysis. CBC with [id number] 07:15:00 Test Item Value Reference Range Interpretation [...] code = ALYMPH) 1.3 K/cumm 0.5-4.6 N Morrison Abs (test code = AMONO) 0.7 K/cumm 0.0-1.2 N Eos Abs (test code = AEOS) 0.07 K/cumm 0.00-0.74 N Baso Abs (test code = ABASO) 0.0 K/cumm 0.00-0.21 N Magnesium, [id number] 07:03:00 Test Item Value Reference Range Interpretation Comments Magnesium (test code = MG) 2.0 mg/dL 1.7-2.5 N Basic Metabolic [id number] 07:03:00 Test Item Value Reference Range Interpretation [...] National Kidney Foundation,http ://nkd ep.nih.gov POC Glucose, [id number] 21:40:00 Test Item Value Reference Range Interpretation Comments POC Glucose (test 129 mg/dL 70-115 H If you con analog ic design engineer your code = POCGLUC) patient crit ically ill, the Madeline Accu- Chek InformII meters hould not be used for Glu cose determinations. Draw a venous Glucose and send to the Main Lab for Analysis. Hep B Surface [id number] 18:36:00 Test Item Value Reference Range Interpretation Comments Hep Bs Ag (test code = HBSAG) Nonreactive Non-Reactive A POC Glucose, [id number] 10:51:00 Test Item Value Reference Range Interpretation Comments POC Glucose (test 216 mg/dL 70-115 H If you con analog ic design engineer your code = POCGLUC) patient crit ically ill, the Madeline Accu- Chek InformII meters hould not be used for Glu cose determinations. Draw a venous Glucose and send to the Main Lab for Analysis. POC Glucose, [id number] 07:57:00 Test Item Value Reference Range Interpretation Comments POC Glucose (test 164 mg/dL 70-115 H If you con analog ic design engineer your code = POCGLUC) patient crit ically ill, the Madeline Accu- Chek InformII meters hould not be used for Glu cose determinations. Draw a venous Glucose and send to the Main Lab for Analysis. POC Glucose, [id number] 19:47:00 Test Item Value Reference Range Interpretation Comments POC Glucose (test 140 mg/dL 70-115 H Notify RN or MDIf you code = POCGLUC) consider you r patient critically ill, the Madeline Accu-Chek InformII metershould not be used for Glucose determinations. Draw a venous Glucose and send to the Main Lab for Analysis. Troponin [id number] 19:36:00 Test Item Value Reference Range Interpretation Comments Troponin T (test code = MADHAV) 0.121 ng/mL 0.000-0.090 H CK [id number] 19:25:00 Test Item Value Reference Range Interpretation [...] value HIDE originally CKMBP) released by [facility] on 09/25/2017 19:1 2 waschanged to 1 .9 by GINO on 09/25 19:24 POC Glucose, [id number] 16:42:00 Test Item Value Reference Range Interpretation Comments POC Glucose (test 123 mg/dL 70-115 H If you con analog ic design engineer your code = POCGLUC) patient crit ically ill, the Madeline Accu- Chek InformII meters hould not be used for Glu cose determinations. Draw a venous Glucose and send to the Main Lab for Analysis. POC Glucose, [id number] 12:09:00 Test Item Value Reference Range Interpretation Comments POC Glucose (test 141 mg/dL 70-115 H If you con analog ic design engineer your code = POCGLUC) patient crit ically ill, the Madeline Accu- Chek InformII meters hould not be used for Glu cose determinations. Draw a venous Glucose and send to the Main Lab for Analysis. Hep B Surface [id number] 07:59:00 Test Item Value Reference Range Interpretation Comments Hep Bs Ag (test code = HBSAG) Nonreactive Non-Reactive A CK [id number] 07:43:00 Test Item Value Reference Range Interpretation Comments CK (test code = CK) n/a U/L 39-308 N CKMB (test code = CKMB) 2.4 ng/mL 0.0-4.9 N CKMB% (test code = CKMBP) 0.0 % 0.0-3.4 N Troponin [id number] 07:38:00 Test Item Value Reference Range Interpretation Comments Troponin T (test code = MADHAV) 0.134 ng/mL 0.000-0.090 H Thyroid Stimulating Hormone (TSH)2017-09-25 07:38:00 Test Item Value Reference Range Interpretation Comments TSH (test code = TSH) 1.10 mIU/mL 0.270-4.200 N [id number] 07:38:00 Test Item Value Reference Range Interpretation Comments Phosphorus (test code = PO4) 3.4 mg/dL 2.70-4.50 N Comprehensive Metabolic [id number] 07:38:00 Test Item Value Reference Range Interpretation [...] the National Kidney Foundation,http ://nkd ep.nih.gov Magnesium, [id number] 07:38:00 Test Item Value Reference Range Interpretation Comments Magnesium (test code = MG) 2.0 mg/dL 1.7-2.5 N CK [id number] 07:31:00 Test Item Value Reference Range Interpretation Comments CK (test code = CK) 159 U/L 39-308 N Lipid [id number] 07:31:00 Test Item Value Reference Range Interpretation Comments Cholesterol (test 118 mg/dL 0-200 N code = CHOL) Triglycerides (test 170 mg/dL 9-200 N code = TRIG) HDL (test code = 49 mg/dL 40-60 N HDL) Chol/HDL (test code 2.4 Ratio 0.0-5.0 N = CHOLPHDL) LDL, Calculated 35 0-130 N (NOTE)RISK O F HEART (test code = LDLC) DISEASEPu blished by [place] Heart AssociationAnal yte Optim al Boderline Increased RiskC HOL <200 200-239 >240TRI G <150 150-199 >200HDL Male: >60 <40HDL Female: >60 <50 LDL < 100 130-15 9 >160 LDL NEAR OPTIMAL IS 100- 129 VLDL (test code = 34 mg/dL 5-40 N VLDL) LDL/HDL (test code = 1 LDLPHDL) Glycosylated [id number] 07:24:00 Test Item Value Reference Range Interpretation Comments HBA1c (test code = HBA1C) 5.0 % 4.8-5.9 N CBC with [id number] 07:20:00 Test Item Value Reference Range Interpretation [...] code = ALYMPH) 0.8 K/cumm 0.5-4.6 N Morrison Abs (test code = AMONO) 0.5 K/cumm 0.0-1.2 N Eos Abs (test code = AEOS) 0.10 K/cumm 0.00-0.74 N Baso Abs (test code = ABASO) 0.0 K/cumm 0.00-0.21 N POC Glucose, [id number] 07:03:00 Test Item Value Reference Range Interpretation Comments POC Glucose (test 147 mg/dL 70-115 H If you con analog ic design engineer your code = POCGLUC) patient crit ically ill, the Madeline Accu- Chek InformII meters hould not be used for Glu cose determinations. Draw a venous Glucose and send to the Main Lab for Analysis. POC Glucose, [id number] 22:05:00 Test Item Value Reference Range Interpretation Comments POC Glucose (test 134 mg/dL 70-115 H If you con analog ic design engineer your code = POCGLUC) patient crit ically ill, the Madeline Accu- Chek InformII meters hould not be used for Glu cose determinations. Draw a venous Glucose and send to the Main Lab for Analysis. Blood Gas+Lytes+Glu+Ca+Hgb+Hct+[id number] 18:31:00 Test Item Value Reference Range Interpretation [...] (test code = alokrblvverqnscrit COMMENT) liz Pierre@ 71854/23figrrt Puncture Site (test code = Radial. R PUNSITE) Drawing Tech ID (test code gianfranco fi = DRAWTECH) iPAP (test code = IPAP) 0 cmH2O Respiratory Rate (test code 0 = RESP RATE) Lactic Acid, Blood Gas 0.4 mmol/L (test code = BGLA) CT CHEST W/O [id number] 16:48:03CT CHEST W/O CONTRASTLOCATION CODE: R16 HISTORY: [...] bilateral axillary, prevascular, andparatracheal lymph nodes.Influenza B [id number] 14:36:00Specimen: NasalCollected: 09/24/2017 14:04 Status: Final Last [...] Culture of negative samples is recommended.Influenza A [id number] 14:34:00Specimen: NasalCollected: 09/24/2017 14:04 Status: Final Last [...] Culture of negative samples is recommended.Comprehensive Metabolic [id number] 13:54:00 Test Item Value Reference Range Interpretation [...] the National Kidney Foundation,http ://nkd ep.nih.gov Troponin [id number] 13:54:00 Test Item Value Reference Range Interpretation Comments Troponin T (test code = MADHAV) 0.124 ng/mL 0.000-0.090 H [id number] 13:54:00 Test Item Value Reference Range Interpretation Comments NT ProBnp (test code = PBNP) >95222 pg/mL 0-124 H CK [id number] 13:54:00 Test Item Value Reference Range Interpretation Comments CK (test code = CK) 222 U/L 39-308 N CKMB (test code = CKMB) 3.1 ng/mL 0.0-4.9 N CKMB% (test code = CKMBP) 1.4 % 0.0-3.4 N CK [id number] 13:54:00 Test Item Value Reference Range Interpretation Comments CK (test code = CK) 222 U/L 39-308 N Partial Thromboplastin [id number] 13:43:00 Test Item Value Reference Range Interpretation Comments aPTT (test code = PTT) 35.70 seconds 24.39-37.25 N Prothrombin [id number] 13:43:00 Test Item Value Reference Range Interpretation Comments PT (test code = PT) 11.30 seconds 9.78-13.35 N INR (test code = INR) 0.99 Ratio 0.6-1.2 N Lactic Acid [id number] 13:41:00 Test Item Value Reference Range Interpretation Comments Lactic Acid, Bld (test code = LAC) 1.3 mmol/L 0.5-1.9 N CBC with [id number] 13:32:00 Test Item Value Reference Range Interpretation [...] code = ALYMPH) 1.2 K/cumm 0.5-4.6 N Morrison Abs (test code = AMONO) 0.6 K/cumm 0.0-1.2 N Eos Abs (test code = AEOS) 0.23 K/cumm 0.00-0.74 N Baso Abs (test code = ABASO) 0.0 K/cumm 0.00-0.21 N XR CHEST 1 [id number] 12:50:14XR CHEST 1 VIEWLOCATION: [id number]: None.INDICATION: CoughDISCUSSION:A single portable chest radiograph was [...] greater thanleft.3. Enlarged cardiac silhouette.T-helper cells (CD4) [id number] 09:09:50 Test Item Value Reference Range Interpretation Comments T-helper cells (CD4) count (test code 602 uL = 34044-4) [facility], serum, by PCR, [id number] 09:09:49 Test Item Value Reference Range Interpretation Comments HIV-1RNA, serum, by PCR, quantitative 20 /mL (test code = 27222) [facility]
[2021-08-20] MEDS ORDERED: MORPHINE 4 MG/ML SYR ONE (04:17)
[2021-08-20] MEDS ORDERED: FAMOTIDINE 20 MG/2 ML VIAL IV ONE (04:17)
[2021-08-20] MEDS ORDERED: ONDANSETRON 4 MG/2 ML VIAL ONE (04:17)
[2021-08-20 05:11] LABS: Absolute Lymphocytes (CBC) 0.9 K/uL (0.7-4.9); Basophils % 0.5 % (0-1.3); Hematocrit 36.5 % (39.6-49.0); Lymphocytes % 14.2 % (15.3-44.8); MPV 7.1 fL (7.6-11.3); RBC Red Blood Cell Count 3.81 M/uL (4.33-5.43)
[2021-08-20 05:18] LABS: Protime INR 1.19
[2021-08-20 06:37] LABS: Albumin 3.3 g/dL (3.4-5.0); Bilirubin Direct 0.3 mg/dL (0-0.2); Bilirubin Total 0.8 mg/dL (0.2-1.0); Protein, Total 7.3 g/dL (6.4-8.2)
[2021-08-20] MEDS ORDERED: FUROSEMIDE 40 MG/4 ML VIAL ONE (07:21)
--- NOTE | 2021-08-20 08:22 | RAD REPORT ---
EXAM DESCRIPTION: CT - Abdomen Pelvis Wo Contrast - 08/20/2021 8:08 am CLINICAL HISTORY: Abdominal pain COMPARISON: August 13, 2021 and 2018 TECHNIQUE: Computed axial tomography of the abdomen and pelvis was obtained. IV was not requested. O ral contrast was given. Coronal reconstructions performed. All CT scans are performed using dose optimization technique as appropriate and may include automated exposure control or mA/KV adjustment according to patient size. FINDINGS: The evaluation of solid organs and vessels is limited secondary to the lack of contrast a dministration. Cardiomegaly, small bilateral pleural effusions with bibasilar atelectasis and small right pericardia c lymph node unchanged. Mild hepatomegaly with prominence of the IVC and hepatic veins. Spleen, pancreas and adrenals grossly normal Small kidneys. Thickening of the wall of the second portion duodenum No evidence of diverticulitis. Trace amount of ascites. Mild abdominal and pelvic lymphadenopathy stable. Avascular necrosis right femoral head. Small gallstone without evidence of gallbladder wall thickenin g Diffuse edema subcutaneous tissues left flank. Normal appendix IMPRESSION: Mild thickening of the wall of the second portion the duodenum may indicate inflammation Hepatomegaly Cardiomegaly, distention of the hepatic veins and IVC likely indicates right heart failure
--- NOTE | 2021-08-20 08:28 | EDPHYS ---
Physician Documentation [facility] Name: Salvatore Goldman Age: 66 yrs Sex: Male : 1955 Arrival Date: 08/20/2021 Time: 02:45 Bed 5 Private MD: ED Physician Manuel Montgomery HPI: 08/20 04:09 This 66 yrs old Black Male presents to ER via Wheelchair with complaints of Abdominal mh7 pain. Flank pain. 04:09 The patient presents with abdominal pain in the upper abdomen. Onset: The mh7 symptoms/episode began/occurred 2 day(s) ago. The symptoms radiate to the right flank. 04:09 Associated signs and symptoms: Pertinent positives: constipation, Pertinent negatives: mh7 nausea, vomiting, and diarrhea, anorexia, blood in stools, chest pain, diarrhea, dysuria, fever, headache, hematuria, nausea, palpitations, shortness of breath, testicular pain, vomiting, vomiting blood. 04:09 The symptoms are described as intermittent, vague, waxing/waning. Modifying factors: mh7 The symptoms are alleviated by nothing, the symptoms are aggravated by nothing. Severity of pain: At its worst the pain was moderate yesterday, in the emergency department the pain has improved moderately. The patient has experienced similar episodes in the past, multiple times. The patient has been recently seen at the [facility] Emergency Department, last week. Historical: - Allergies: 03:27 No Known Allergies; bb - Home Meds: 03:27 aspirin 81 mg Oral tab 81 mg daily for Myocardial Infarction Prevention [Active]; bb atorvastatin 20 mg Oral tab 1 tab once daily for atherosclerotic cardiovascular disease [Active]; atropine 0.01 % Opht dpem 1 drop daily for AIDS/HIV [Active]; benzonatate 100 mg Oral cap 1 cap 3 times per day [Active]; calcium acetate(phosphat bind) 667 mg Oral tab 6 6 TABS DAILY daily for Renal Osteodystrophy with Hyperphosphatemia [Active]; Isentress 400 mg Oral tab 1 tab 2 times per day for prevention of HIV infection after exposure [Active]; Kaletra 200-50 mg Oral tab 2 tabs 2 times per day for prevention of HIV infection after exposure [Active]; lamivudine 10 mg/mL Oral soln 2.5 mL once daily for prevention of HIV infection after exposure [Active]; metoprolol tartrate 25 mg Oral tab 1 tab once daily [Active]; Daija-Kodak 0.8 mg Oral tab 1 tab daily for Vitamin Deficiency Prevention [Active]; Vitamin D-3 with Aloe 5000 iu Oral 5000 IU WEEKLY for Vitamin Deficiency Prevention [Active]; warfarin 10 mg Oral tab 2 tabs Saturday AND SATURDAY for Deep Vein Thrombosis Prevention [Active]; warfarin 5 mg Oral tab 1 tab saturday and for Deep Vein Thrombosis Prevention [Active]; - PMHx: 03:27 Cirrhosis; Diabetes - NIDDM; Dialysis; heart valve; Hepatitis; HIV; Hyperlipidemia; bb Hypertensive disorder; Karposi Sarcoma (left leg); kidney failure; L arm HD access; - Immunization history:: Adult Immunizations up to date, Client reports receiving the 2nd dose of the Covid vaccine, Moderna x 3. - Social history:: Smoking status: Patient denies any tobacco usage or history of. ROS: 04:09 Constitutional: Negative for fever, chills, and weight loss, Eyes: Negative for injury, mh7 pain, redness, and discharge, ENT: Negative for injury, pain, and discharge, Neck: Negative for injury, pain, and swelling, Cardiovascular: Negative for chest pain, palpitations, and edema, Respiratory: Negative for shortness of breath, cough, wheezing, and pleuritic chest pain, : Negative for injury, bleeding, discharge, and swelling, MS/Extremity: Negative for injury and deformity, Skin: Negative for injury, rash, and discoloration, Neuro: Negative for headache, weakness, numbness, tingling, and seizure, Psych: Negative for depression, anxiety, suicide ideation, homicidal ideation, and hallucinations, Allergy/Immunology: Negative for hives, rash, and allergies, Endocrine: Negative for neck swelling, polydipsia, polyuria, polyphagia, and marked weight changes, Hematologic/Lymphatic: Negative for swollen nodes, abnormal bleeding, and unusual bruising. Exam: 04:09 Constitutional: This is a well developed, well nourished patient who is awake, alert, mh7 and in no acute distress. Head/Face: Normocephalic, atraumatic. Eyes: Pupils equal round and reactive to light, extra-ocular motions intact. Lids and lashes normal. Conjunctiva and sclera are non-icteric and not injected. Cornea within normal limits. Periorbital areas with no swelling, redness, or edema. Neck: Trachea midline, no thyromegaly or masses palpated, and no cervical lymphadenopathy. Supple, full range of motion without nuchal rigidity, or vertebral point tenderness. No Meningismus. Chest/axilla: Normal chest wall appearance and motion. Nontender with no deformity. No lesions are appreciated. Cardiovascular: Regular rate and rhythm with a normal S1 and S2. No gallops, murmurs, or rubs. Normal PMI, no JVD. No pulse deficits. Respiratory: Lungs have equal breath sounds bilaterally, clear to auscultation and percussion. No rales, rhonchi or wheezes noted. No increased work of breathing, no retractions or nasal flaring. Back: No spinal tenderness. No costovertebral tenderness. Full range of motion. Skin: Warm, dry with normal turgor. Normal color with no rashes, no lesions, and no evidence of cellulitis. MS/ Extremity: Pulses equal, no cyanosis. Neurovascular intact. Full, normal range of motion. Neuro: Awake and alert, GCS 15, oriented to person, place, time, and situation. Cranial nerves II-XII grossly intact. Motor strength 5/5 in all extremities. Sensory grossly intact. Cerebellar exam normal. Normal gait. Psych: Awake, alert, with orientation to person, place and time. Behavior, mood, and affect are within normal limits. Vital Signs: 03:25 BP 169 / 83; Pulse 81; Resp 24 S; Temp 97.9(O); Pulse Ox 97% on R/A; Weight 71.67 kg bb (R); Height 5 ft. 7 in. (170.18 cm) (R); Pain 7/10; 07:00 BP 169 / 89; Pulse 80; Resp 22; Pulse Ox 100% ; vg1 08:00 BP 172 / 96; Pulse 84; Resp 20; Pulse Ox 99% ; vg1 03:25 Body Mass Index 24.75 (71.67 kg, 170.18 cm) bb MDM: 07:04 Patient medically screened. rn 07:04 ED course: Pt signed out to me by Dr. Thakkar, plan was to get CT abdomen/pelvis with PO rn contrast and if normal dc home. States labs look good. . 08:27 Differential diagnosis: appendicitis, bowel obstruction, diverticulitis, non-specific rn abd pain, ascites, constipation, ileus. Data reviewed: vital signs, nurses notes, lab test result(s), radiologic studies, CT scan, and as a result, I will discharge patient. Counseling: I had a detailed discussion with the patient and/or guardian regarding: the historical points, exam findings, and any diagnostic results supporting the discharge/admit diagnosis, lab results, radiology results, the need for outpatient follow up, to return to the emergency department if symptoms worsen or persist or if there are any questions or concerns that arise at home. Response to treatment: the patient's symptoms have mildly improved after treatment, and as a result, I will discharge patient. 08/20 04:07 Order name: Basic Metabolic Panel; Complete Time: 06:48 mh7 08/20 04:07 Order name: CBC with Diff; Complete Time: 05:52 mh7 08/20 04:07 Order name: Hepatic Function; Complete Time: 06:48 mh7 08/20 04:07 Order name: Lipase; Complete Time: 06:48 7 08/20 04:08 Order name: Protime (+inr); Complete Time: 05:52 mh7 08/20 04:08 Order name: Ptt, Activated; Complete Time: 05:52 7 08/20 04:07 Order name: IV Saline Lock; Complete Time: 05:14 mh7 08/20 04:07 Order name: EKG; Complete Time: 04:08 7 08/20 06:27 Order name: Abdomen ; Complete Time: 08:25 EDMS 08/20 04:07 Order name: Labs collected and sent; Complete Time: 05:14 7 08/20 04:07 Order name: EKG - Nurse/Tech; Complete Time: 04:45 mh7 Administered Medications: 05:30 Drug: Pepcid (famotidine) 20 mg Route: IVP; Site: right forearm; lp1 07:00 Follow up: Response: No adverse reaction; Marked relief of symptoms vg1 08:44 Follow up: Response: No adverse reaction jl7 08:33 Not Given (Patient Refused): morphine 4 mg IVP once; RASS on ADMIN: Combtv4, Very ss Agttd3, Agttd2, Rstlss1, AlertClm0, Drwsy-1, Lt Sdtn-2, Mod Sdtn-3, Dp Sdtn-4, UnArsble-5 08:33 Not Given (Patient Refused): Zofran (Ondansetron) 4 mg IVP once; over 2 minutes 08:37 Drug: GI Cocktail without - (Maalox Suspension 30 ml, Lidocaine Liquid 2 % 15 jl7 ml) Route: PO; 08:47 Follow up: Response: Medication administered at discharge. jl7 08:50 Follow up: Response: Medication administered at discharge. vg1 Disposition Summary: 08/20/21 08:28 Discharge Ordered Location: Home rn Problem: new rn Symptoms: have improved rn Condition: Stable rn Diagnosis - Abdominal pain, unspecified rn - Duodenitis rn Followup: rn - With: Private Physician - When: As needed - Reason: Recheck today's complaints, Re-evaluation by your physician Discharge Instructions: - Discharge Summary Sheet rn - Abdominal Pain, Adult rn Forms: - Medication Reconciliation Form rn - Thank You Letter rn - Antibiotic corn breeder - Prescription Opioid Use rn Signatures: Dispatcher [employer] EDMS Zunilda Loomis, RN RN bb Manuel Montgomery MD MD rn Pena, Laura RN RN lp1 Jase Hughes RN RN jl7 Oleg Thakkar MD MD 7 Raquel Villegas RN Barb Montemayor RN vg1 Corrections: (The following items were deleted from the chart) 06:27 06:07 Abdomen Pelvis W Con+CT.RAD.BRZ ordered. EDMS EDMS
--- NOTE | 2021-08-20 08:28 | ER ---
Nurse's Notes [facility] Name: Salvatore Goldman Age: 66 yrs Sex: Male : 1955 Arrival Date: 08/20/2021 Time: 02:45 Bed 5 Private MD: Diagnosis: Abdominal pain, unspecified;Duodenitis Presentation: 08/20 03:25 Chief complaint: Patient states: he is constipated, with back and rib pain, he bb completed dialysis yesterday. Coronavirus screen: At this time, the client does not indicate any symptoms associated with coronavirus-19. Ebola Screen: No symptoms or risks identified at this time. Initial Sepsis Screen: Does the patient meet any 2 criteria? No. Patient's initial sepsis screen is negative. Does the patient have a suspected source of infection? No. Patient's initial sepsis screen is negative. Risk Assessment: Do you want to hurt yourself or someone else? Patient reports no desire to harm self or others. Onset of symptoms was August 17, 2021. 03:25 Method Of Arrival: Wheelchair bb 03:25 Acuity: NARDA 3 bb Historical: - Allergies: 03:27 No Known Allergies; bb - Home Meds: 03:27 aspirin 81 mg Oral tab 81 mg daily for Myocardial Infarction Prevention [Active]; bb atorvastatin 20 mg Oral tab 1 tab once daily for atherosclerotic cardiovascular disease [Active]; atropine 0.01 % Opht dpem 1 drop daily for AIDS/HIV [Active]; benzonatate 100 mg Oral cap 1 cap 3 times per day [Active]; calcium acetate(phosphat bind) 667 mg Oral tab 6 6 TABS DAILY daily for Renal Osteodystrophy with Hyperphosphatemia [Active]; Isentress 400 mg Oral tab 1 tab 2 times per day for prevention of HIV infection after exposure [Active]; Kaletra 200-50 mg Oral tab 2 tabs 2 times per day for prevention of HIV infection after exposure [Active]; lamivudine 10 mg/mL Oral soln 2.5 mL once daily for prevention of HIV infection after exposure [Active]; metoprolol tartrate 25 mg Oral tab 1 tab once daily [Active]; Daija-Kodak 0.8 mg Oral tab 1 tab daily for Vitamin Deficiency Prevention [Active]; Vitamin D-3 with Aloe 5000 iu Oral 5000 IU WEEKLY for Vitamin Deficiency Prevention [Active]; warfarin 10 mg Oral tab 2 tabs Saturday AND SATURDAY for Deep Vein Thrombosis Prevention [Active]; warfarin 5 mg Oral tab 1 tab saturday and for Deep Vein Thrombosis Prevention [Active]; - PMHx: 03:27 Cirrhosis; Diabetes - NIDDM; Dialysis; heart valve; Hepatitis; HIV; Hyperlipidemia; bb Hypertensive disorder; Karposi Sarcoma (left leg); kidney failure; L arm HD access; - Immunization history:: Adult Immunizations up to date, Client reports receiving the 2nd dose of the Covid vaccine, Moderna x 3. - Social history:: Smoking status: Patient denies any tobacco usage or history of. Screenin:14 Abuse screen: Denies threats or abuse. Denies injuries from another. Nutritional lp1 screening: No deficits noted. Tuberculosis screening: No symptoms or risk factors identified. Fall Risk Total Humphrey Fall Scale indicates High Risk Score (45 or more points). Fall prevention measures have been instituted. Side Rails Up X 2 As available patient and family educated on Fall Prevention Program and Strategies. Assessment: 04:45 General: Appears in no apparent distress. Behavior is calm, cooperative. Pain: lp1 Complains of pain in abdomen Pain currently is 5 out of 10 on a pain scale. Neuro: Level of Consciousness is awake, alert, obeys commands, Oriented to person, place, time, situation. Cardiovascular: Patient's skin is warm and dry. Rhythm is sinus rhythm Dialysis shunt: in the left bicep. Respiratory: Respiratory effort is even, unlabored. GI: Abdomen is non-distended. Derm: Skin is intact, Skin is dry, Skin is normal. 05:00 Reassessment: Patient denies need for pain medication at this time. lp1 06:30 Reassessment: CT notified of patient completing oral contrast at this time. lp1 07:20 General: Appears in no apparent distress. uncomfortable, Behavior is calm, cooperative. vg1 Pain: Complains of pain in right lower quadrant and left lower quadrant Pain currently is 6 out of 10 on a pain scale. Neuro: Level of Consciousness is awake, alert, obeys commands, Oriented to person, place, time, situation. Cardiovascular: Patient's skin is warm and dry. Respiratory: Airway is patent Respiratory effort is even, unlabored. GI: Abdomen is non-distended, Reports constipation. : No signs and/or symptoms were reported regarding the genitourinary system. EENT: No signs and/or symptoms were reported regarding the EENT system. Derm: Skin is intact. Musculoskeletal: Circulation, motion, and sensation intact. 08:50 Reassessment: Patient appears in no apparent distress at this time. Patient and/or vg1 family updated on plan of care and expected duration. Pain level reassessed. Patient is alert, oriented x 3, equal unlabored respirations, skin warm/dry/pink. Vital Signs: 03:25 BP 169 / 83; Pulse 81; Resp 24 S; Temp 97.9(O); Pulse Ox 97% on R/A; Weight 71.67 kg bb (R); Height 5 ft. 7 in. (170.18 cm) (R); Pain 7/10; 07:00 BP 169 / 89; Pulse 80; Resp 22; Pulse Ox 100% ; vg1 08:00 BP 172 / 96; Pulse 84; Resp 20; Pulse Ox 99% ; vg1 03:25 Body Mass Index 24.75 (71.67 kg, 170.18 cm) ED Course: 02:45 Patient arrived in ED. wm 03:27 Triage completed. bb 03:27 Arm band placed on Patient placed in an exam room, on a stretcher. bb 03:32 Sally Guerrero, RN is Primary Nurse. lp1 03:35 Oleg Thakkar MD is Attending Physician. 7 04:50 Missed attempt(s): 22 gauge in right forearm. Missed attempt(s): 22 gauge in right lp1 antecubital area. 05:00 Patient has correct armband on for positive identification. Placed in gown. Bed in low lp1 position. Pulse ox on. NIBP on. 07:04 Attending Physician role handed off by Oleg Thakkar MD rn 07:04 Manuel Montgomery MD is Attending Physician. rn 07:36 Primary Nurse role handed off by Sally Guerrero RN eb 07:44 Barb Durán, RN is Primary Nurse. vg1 08:08 Abdomen In Process Unspecified. EDMS 08:51 No provider procedures requiring assistance completed. IV discontinued, intact, vg1 bleeding controlled, No redness/swelling at site. Pressure dressing applied. Administered Medications: 05:30 Drug: Pepcid (famotidine) 20 mg Route: IVP; Site: right forearm; lp1 07:00 Follow up: Response: No adverse reaction; Marked relief of symptoms vg1 08:44 Follow up: Response: No adverse reaction jl7 08:33 Not Given (Patient Refused): morphine 4 mg IVP once; RASS on ADMIN: Combtv4, Very ss Agttd3, Agttd2, Rstlss1, AlertClm0, Drwsy-1, Lt Sdtn-2, Mod Sdtn-3, Dp Sdtn-4, UnArsble-5 08:33 Not Given (Patient Refused): Zofran (Ondansetron) 4 mg IVP once; over 2 minutes ss 08:37 Drug: GI Cocktail without - (Maalox Suspension 30 ml, Lidocaine Liquid 2 % 15 jl7 ml) Route: PO; 08:47 Follow up: Response: Medication administered at discharge. jl7 08:50 Follow up: Response: Medication administered at discharge. vg1 Outcome: 08:28 Discharge ordered by . rn 08:51 Discharged to home via wheelchair. vg1 08:51 Condition: good 08:51 Condition: good 08:51 Discharge instructions given to patient, Instructed on discharge instructions, follow up and referral plans. Demonstrated understanding of instructions, follow-up care. 08:51 Patient left the ED. vg1 Signatures: Dispatcher [employer] Zunilda Kendall RN RN Manuel Bryan MD MD rn Pena, Laura, RN RN lp1 Jase Hughes RN RN jl7 Amanda Sinha Victoria, RN RN vg1 Oleg Thakkar MD MD 7 Emmy Calles Shelby RN ss
[2021-08-20] MEDS ORDERED: LIDOCAINE VISCOUS 2% SOLN 15 ML UDC ONE (08:35)
[2021-08-20] MEDS ORDERED: MAGNES/ALUMIN/SIMET 30ML UCUP ONE (08:35)
[2021-08-20 08:56] VITALS: TEMP 97.9
[2021-08-20 08:59] VITALS: BP 172/96; O2SAT 99
--- NOTE | 2021-08-21 08:10 | EKG ---
Test Date: 2021-08-20 Test Time: 04:26:01 Allergy And Immunology Specialist: JONAS MEASUREMENT RESULTS: Intervals: Rate: 79 AL: 196 QRSD: 84 QT: 406 QTc: 465 [place]: P: -14 AL: 196 QRS: 81 T: 64 INTERPRETIVE STATEMENTS: Normal sinus rhythm Normal ECG Compared to ECG 08/13/2021 21:37:44 Fusion complex(es) no longer present Ventricular premature complex(es) no longer present First degree AV block no longer present Prolonged QT interval no longer present Electronically Signed On 08-21-21 08:09:53 [employer]INE TEND[employer] by Rafael Bedolla
== END 2021-08-20 08:51 | disposition home or self-care (01) ==
LOC: ER 02:41
DX: K29.80 Duodenitis without bleeding (principal); E11.22 Type 2 diabetes mellitus with diabetic chronic kidney disease; N18.6 End stage renal disease; Z99.2 Dependence on renal dialysis; B20 Human immunodeficiency virus [HIV] disease; C46.0 Kaposi's sarcoma of skin; Z79.01 Long term (current) use of anticoagulants; Z79.82 Long term (current) use of aspirin
CPT/HCPCS: 93005; 85025; 80048; 36415; 85610; 80076; 85730; 83690; 74176; 96374; 99284; J1940; J2405